=== PATIENT | female | born 1935 | race Caucasian/White ===

== ENCOUNTER → 2025-01-15 | Outpatient (REF) | payer MEDICARE, SELFPAY ==
[2025-01-15 09:37] LABS: Absolute Lymphocyte Count 1.16 X10^3/uL (0.83-4.51); Absolute Neutrophil Count 5.9 X10^3/uL (2.0-7.7); Basophil# 0.04 X10^3/uL; Basophil% 0.5 % (0-1); Eosinophil# 0.33 X10^3/uL; Eosinophils% 4.1 % (0-5); Hemoglobin 9.4 g/dL (12.0-15.0); Lymphocyte # 1.16 X10^3/ul (0.83-4.51); Lymphocyte % 14.3 % (19-41); Mean Corp Hgb Conc 32.4 g/dL (32-36); Mean Corpuscular Hgb 29.5 pg (27.0-32.0); Mean Corpuscular Volume 90.9 fL (81-99); Mean Platelet Vol. 9.4 fl (6.2-12.0); Monocyte# 0.66 X10^3/uL; Monocyte% 8.1 % (0-10); NRBC Flagged by Analyzer 0 % (0-5); Neutrophil # 5.86 X10^3/uL (2.7-7.7); Neutrophil % 71.9 % (47-70); Platelet Count 390 K/mm3 (150-450); RBC Distribution Width SD 53.4 fl (35.1-43.9); Red Blood Count 3.19 M/mm3 (4.2-5.4); White Blood Count 8.1 K/mm3 (4.4-11.0)
[2025-01-15 10:38] LABS: Anion Gap 12 (5-15); BUN 27 mg/dL (4-19); BUN/Creat Ratio 35.3 RATIO (10-20); Calcium,Total 9.1 mg/dL (7.6-11.0); Chloride 101 mmol/L (98-108); Creatinine, Serum 0.76 mg/dL (0.70-1.20); EST Glomerular Filtration Rate 75 (>60); Glucose 108 mg/dL (70-99); Potassium 4.6 mmol/L (3.3-5.1); Sodium Level 139 mmol/L (133-145)
== END ==
LOC: OLS.ACH 05:00
PROVIDERS: Visit Provider Internal Medicine
DX: E11.65 Type 2 diabetes mellitus with hyperglycemia (principal); E11.22 Type 2 diabetes mellitus with diabetic chronic kidney disease; N18.31 Chronic kidney disease, stage 3a
CPT/HCPCS: 36415; 80048; 85025

== ENCOUNTER → 2025-02-04 | Outpatient (REF) | payer MEDICARE, SELFPAY ==
[2025-02-04 10:54] LABS: Erythrocyte Sedimentation Rate 23 mm/hr (0-30)
[2025-02-04 23:39] LABS: CRP < 3.00 mg/L (0.0-3.0)
== END ==
LOC: OLS.ACH 05:00
PROVIDERS: Visit Provider Internal Medicine
DX: M11.20 Other chondrocalcinosis, unspecified site (principal); B95.61 Methicillin susceptible Staphylococcus aureus infection as the cause of diseases classified elsewhere
CPT/HCPCS: 36415; 85652; 86140

== ENCOUNTER → 2025-03-04 | Outpatient (REF) | payer MEDICARE, SELFPAY ==
[2025-03-04 09:42] LABS: Erythrocyte Sedimentation Rate 12 mm/hr (0-30)
[2025-03-04 11:57] LABS: CRP < 3.00 mg/L (0.0-3.0)
== END ==
LOC: OLS.ACH 05:00
PROVIDERS: Visit Provider Internal Medicine
DX: M11.20 Other chondrocalcinosis, unspecified site (principal); B95.61 Methicillin susceptible Staphylococcus aureus infection as the cause of diseases classified elsewhere
CPT/HCPCS: 36415; 85652; 86140

== ENCOUNTER → 2025-03-12 | Outpatient (REF) | payer MEDICARE, SELFPAY ==
[2025-03-12 09:44] LABS: Hemoglobin A1c 7.4 % (<=5.6)
== END ==
LOC: OLS.ACH 04:00
PROVIDERS: Referring Provider Internal Medicine; Visit Provider Internal Medicine
DX: E11.65 Type 2 diabetes mellitus with hyperglycemia (principal)
CPT/HCPCS: 36415; 83036

== ENCOUNTER → 2025-04-01 | Outpatient (REF) | payer MEDICARE, SELFPAY ==
[2025-04-01 08:56] LABS: CRP < 3.00 mg/L (0.0-3.0); Erythrocyte Sedimentation Rate 14 mm/hr (0-30)
== END ==
LOC: OLS.ACH 05:00
PROVIDERS: Visit Provider Internal Medicine
DX: M11.20 Other chondrocalcinosis, unspecified site (principal); B95.61 Methicillin susceptible Staphylococcus aureus infection as the cause of diseases classified elsewhere
CPT/HCPCS: 36415; 85652; 86140

== ENCOUNTER → 2025-04-10 03:00 | Outpatient (REF) | payer MEDICARE, SELFPAY ==
[2025-04-11 08:21] LABS: Mucous, Urine 0 SEEN /hpf (<or=2+)
[2025-04-11 08:28] LABS: Color, Urine Yellow (Yellow); Glucose, Dipstick Normal (Normal); Ketone-Dipstick Negative (Negative); Leukocyte Esterase-Dipstick 100 /ul (Negative); Nitrite-Dipstick Negative (Negative); Occult Blood-Urine Negative /ul (Negative); Protein-Dipstick 100 mg/dl (Negative); Specific Gravity, Urine 1.015 (1.002-1.030); Urine Bilirubin Dipstick Negative (Negative); Urine Clarity Clear (Clear); Urine Urobilinogen Normal (Normal)
[2025-04-11 10:36] LABS: Bacteria 1+ /hpf (None Seen); Red Blood Cells-Urine 0-5 SEEN /hpf (0-5); Squamous Epithelial Cells - UA 0-5 SEEN /hpf (5-10); White Blood Cells 5-10 SEEN /hpf (0-5)
[2025-04-11 10:44] LABS: Hyaline Cast 0-5 SEEN /lpf (0-5)
== END ==
LOC: OLS.ACH 03:00
PROVIDERS: Visit Provider Internal Medicine
DX: N39.0 Urinary tract infection, site not specified (principal)
CPT/HCPCS: 81001; 87077; 87086; 87088; 87186

== ENCOUNTER → 2025-04-26 | Outpatient (REF) | payer MEDICARE, SELFPAY ==
[2025-04-26 08:03] LABS: Mucous, Urine 0 SEEN /hpf (<or=2+); Red Blood Cells-Urine 0 SEEN /hpf (0-5)
[2025-04-26 08:28] LABS: Color, Urine Yellow (Yellow); Glucose, Dipstick Normal (Normal); Ketone-Dipstick Negative (Negative); Leukocyte Esterase-Dipstick 25 /ul (Negative); Nitrite-Dipstick Negative (Negative); Occult Blood-Urine Negative /ul (Negative); Protein-Dipstick 100 mg/dl (Negative); Urine Bilirubin Dipstick Negative (Negative); Urine Clarity Clear (Clear); Urine Urobilinogen Normal (Normal)
[2025-04-26 08:59] LABS: Bacteria 1+ /hpf (None Seen); Squamous Epithelial Cells - UA 5-10 SEEN /hpf (5-10); White Blood Cells 0-5 SEEN /hpf (0-5)
[2025-04-26 09:00] LABS: Fine Granular Cast- Urine 0-5 SEEN /lpf (0-5); Hyaline Cast 5-10 SEEN /lpf (0-5)
== END ==
LOC: OLS.ACH 05:00
PROVIDERS: Visit Provider Internal Medicine
DX: N39.9 Disorder of urinary system, unspecified (principal); R39.9 Unspecified symptoms and signs involving the genitourinary system
CPT/HCPCS: 81001; 87077; 87086; 87088; 87186

== ENCOUNTER → 2025-04-29 | Outpatient (REF) | payer MEDICARE, SELFPAY ==
--- OUTSIDE RECORDS SUMMARY | 2025-04-29 04:52 | XMS RPT_ITS | CCD ---
Author Organization [facility] ion [facility] Care Team Providers Care Day Guard Name Role Phone Migdalia Cramer MD Primary Care Provider Edenilson Townsend Unavailable [facility] Unavailable Katia Farooq RN Unavailable Unavailabl Migdalia Esparza MD Primary Care Provider Edenilson Townsend Unavailable Migdalia Crmaer MD Primary Care Provider Edenilson Townsend Unavailable Lien Hankins RN Unavailable Edenilson Townsend OD Unavailable [phone] Migdalia Cramer MD Primary Care Provider Kris PLANER TAILER.Cinthia JUAN Unavailable Fabrizio PLANER TAILER.Willie JUAN Unavailable MIGDALIA CRAMER Primary Care Unavailable SIMONE KEVIN Referring Unavailable MIGDALIA CRAMER Attending Unavailable MIGDALIA CRAMER Primary Care Unavailable GERTRUDIS BILL Attending Unavailable MIGDALIA CRAMER Primary Care Unavailable GRUPO MENDEZ Referring Unavailable MIGDALIA CRAMER Primary Care Unavailable MARIUSZ ROMO Attending Unavailable MIGDALIA CRAMER Primary Care Unavailable GRUPO MENDEZ Attending Unavailable MIGDALIA CRAMER Referring Unavailable MIGDALIA CRAMER Primary Care Unavailable WILLIE KAUR Referring Unavailable CRAMER, MIGDALIA D Primary Care Unavailable MARIUSZ ROMO Referring Unavailable CRAMER, MIGDALIA D Attending Unavailable CRAMER, MIGDALIA D Primary Care Unavailable AB BENSON Attending Unavailable CRAMER, MIGDALIA D Primary Care Unavailable GRUPO MENDEZ Attending Unavailable CRAMER, MIGDALIA D Primary Care Unavailable SELF Referring Unavailable CRAMER, MIGDALIA D Primary Care Unavailable SIMONE KEVIN Attending Unavailable WILLIE KAUR Referring Unavailable CRAMER, MIGDALIA D Primary Care Unavailable OSCAR, GRUPO Referring Unavailable CRAMER, MIGDALIA D Primary Care Unavailable SIMONE KEVIN Referring Unavailable CRAMER, MIGDALIA D Primary Care Unavailable TYESHA SINGLETON Attending Unavailable CRAMER, MIGDALIA D Primary Care Unavailable CRAMER, MIGDALIA D Primary Care Unavailable SIMONE KEVIN Referring Unavailable OSCAR, GRUPO Referring Unavailable CRAMER, MIGDALIA D Primary Care Unavailable OSCAR, GRUPO Referring Unavailable CRAMER, MIGDALIA D Primary Care Unavailable SIMONE KEVIN Attending Unavailable CRAMER, MIGDALIA D Attending Unavailable CRAMER, MIGDALIA D Primary Care Unavailable SHELBY MENDEZNORA Referring Unavailable CRAMER, MIGDALIA D Primary Care Unavailable SIMONE KEVIN Referring Unavailable CRAMER, MIGDALIA D Primary Care Unavailable Mario Mak MD Attending Provider Unavailable Mario Mak MD Referring Provider Unavailable PROVIDER, UNKNOWN Attending Unavailable PROVIDER, UNKNOWN Primary Care Unavailable SHAUN SUAREZ Admitting Unavailable JOSIE WYNN Consulting Unavailabl e PROVIDER, UNKNOWN Primary Care Unavailable MARTIN NUNES Attending Unavailable LIEN BANG Attending Unavailable PROVIDER, UNKNOWN Primary Care Unavailable LIEN BANG Attending Unavailable PROVIDER, UNKNOWN Primary Care Unavailable GRUPO MNEDEZ Referring Unavailable PROVIDER, UNKNOWN Primary Care Unavailable LIEN BANG Attending Unavailable PROVIDER, UNKNOWN Primary Care Unavailable JINA CASTILLO DANIEL Referring Unavailable PROVIDER, UNKNOWN Primary Care Unavailable CINTHIA REDD Attending Unavailable MURO JONATHAN, DANIEL Referring Unavailable PROVIDER, UNKNOWN Primary Care Unavailable ELMA THOMPSON Attending Unavailable Aubree HODGE, Mario Attending Provider Unavailable Aubree HODGE, Mario Referring Provider Unavailable Deperro ADRIANNA, Mario Attending Unavailable Deperro OLS, Mario Attending Unavailable Deperro OLS, Mario Attending Unavailable Deperro OLS, Mario Attending Unavailable Deperro OLS, Mario Attending Unavailable Deperro OLS, Mario Attending Unavailable Deperro OLS, Mario Referring Unavailable Deperro OLS, Mario Referring Unavailable Deperro OLS, Mario Attending Unavailable Aubree RODAS, Mario Attending Unavailable Aubree RODAS, Mario Referring Unavailable Aubree RODAS, Mario Attending Unavailable Kareeno ADRIANNA, Mario Attending Unavailable Aubree RODAS, Mario Attending Unavailable Medications Current Medications Medication Drug Class(es) Dates Sig (Normalized) Sig (Original) acetaminophen 325 mg oral capsule (9 sources) take 2 tablets by mouth three times daily for pain acetaminophen 325 mg cap Take 325 mg by mouth two times a day. Give 2 tablets by mouth three times a day for pain for 2 weeks Active albuterol 0.833 mg/ml / ipratropium bromide 0.167 mg/ml inhalation solution (4 sources) Anticholinergic, beta2-Adrenergic Agonist take 3 mL by inhalation every four hours as needed ipratropium-albute rol (DUONEB) 0.5 mg-3 mg(2.5 mg base)/3 mL nebu Inhale 3 mL as instructed every 4 hours as needed for wheezing/shortness of breath. Active amLODIPine 5 mg oral tablet (20 sources) Dihydropyridine Calcium Channel Evelyn Start: 04-14-2021 End: 12-25-2024 take 1 tablet by mouth once daily amLODIPine (NORVASC) 5 mg tablet Indications: Essential hypertension TAKE 1 TABLET BY MOUTH ONCE DAILY 90 tablet 3 12/25/2024 Active Comment on above: TAKE 1 TABLET BY [facility] TH ONCE DAILY ascorbic acid 500 mg oral tablet (4 sources) Vitamin C take 1 tablet by mouth twice daily ascorbic acid, vitamin C, (VITAMIN C) 500 mg tablet Take 500 mg by mouth two times a day. Active atorvastatin 40 mg oral tablet (4 sources) HMG-CoA Reductase Inhibitor take 1 tablet by mouth once daily atorvastatin (LIPITOR) 40 mg tablet Take 40 mg by mouth once daily. Active Blood Glucose Control, Normal soln (1 source) Start: 04-20-2023 End: 04-21-2023 Blood Glucose Control, Normal soln Use testing solution to calibrate glucometer as needed 1 Each 0 04/20/2023 04/21/2023 Active Comment on above: Use testing solution to calibrate glucometer as needed Blood-Glucose Meter (1 source) Start: 04-20-2023 End: 04-21-2023 Blood-Glucose Meter Test One time a day. Insulin Dep? No E11.9 DM 2 1 Each 0 04/20/2023 04/21/2023 Active Comment on above: Test One time a day. Insulin Dep? No E11.9 DM 2 cefixime 400 mg oral capsule (2 sources) Cephalosporin Antibacterial Start: 03-29-2022 End: 04-01-2022 take 1 capsule by mouth once daily cefixime (SUPRAX) 400 mg capsule Take 1 capsule by mouth once daily for 3 doses. 3 capsule 0 03/29/2022 04/01/2022 Active Comment on above: Take 1 capsule by [facility] once daily for 3 doses. colchicine 0.6 mg oral tablet (15 sources) Start: 12-12-2024 End: 03-12-2025 take 1 tablet by mouth once daily colchicine 0.6 mg tablet Take 1 tablet by mouth once daily. 12/12/2024 03/12/2025 Active diclofenac sodium 0.01 mg/mg topical gel (20 sources) Nonsteroidal Anti-inflammatory Drug Start: 03-09-2023 apply 2 g topically every six hours as needed diclofenac (VOLTAREN) 1 % topical gel Apply 2 g to affected area four times daily as needed. 50 g 1 03/09/2023 Active Start: 03-29-2022 End: 04-28-2022 apply 2 g topically four times daily diclofenac (VOLTAREN) 1 % topical gel Apply 2 g to affected area four times daily. 240 g 0 03/29/2022 04/28/2022 Active Comment on above: Apply 2 g to affecte d area four times daily. Apply 2 g to affecte d area four times daily as needed. docusate sodium 50 mg / sennosides, skilled nursing 8.6 mg oral tablet (9 sources) take 1 tablet by mouth once daily senna-docusate (SENEXON-S) 8.6-50 mg per tablet Take 1 tablet by mouth once daily. Active ferrous sulfate 325 mg oral tablet (7 sources) Start: 05-08-2022 End: 08-06-2022 take 1 tablet by mouth twice daily ferrous sulfate 325 mg (65 mg iron) tablet Indications: Iron deficiency anemia, unspecified iron deficiency anemia type Take 1 tablet by mouth twice daily. 180 tablet 0 05/08/2022 08/06/2022 Active Start: 03-26-2022 End: 04-25-2022 take 1 tablet by mouth twice daily ferrous sulfate 325 mg (65 mg iron) tablet Take 1 tablet by mouth twice daily. 60 tablet 0 03/26/2022 04/25/2022 Active Comment on above: Take 1 tablet by [facility] th twice daily. GLUCAGON INJECTION (4 sources) GLUCAGON INJECTI ON 1 mg by INJECTION(UNSPECIFIED PARENTERAL ROUTES) route as needed (hypoglycemia). If glucose is less than 70 and non-responsive or NPO. Repeat blood sugar in 15 minutes. Active 3 ml insulin glargine 100 unt/ml pen injector (15 sources) Insulin Analog Start: inject 22 [IU] by subcutaneous injection once daily at bedtime insulin glargine 100 unit/mL (3 mL) Inject 22 Units subcutaneously daily at bedtime. 12/12/2024 Active insulin lispro 100 unt/ml injectable solution (15 sources) Insulin Analog Start: inject 8 [IU] by subcutaneous injection three times daily before mealtime, then inject 8 [IU] by subcutaneous injection three times daily before mealtime insulin lispro (HUMALOG U-100 INSULIN) 100 unit/mL injection Inject 8 Units subcutaneously three times a day before meals. Inject 8 units subcutaneously 3 times daily before meals. Check mealtime blood sugar and also administer correction scale.If Blood Glucose (mg/dL) is: Less than 110 Give 0 units 111-150 Give 0 units 151-200 Give 1 unit 201-250 Give 2 units 251-300 Give 3 units 301-350 Give 4 units 351-400 Give 5 units Greater than 400 Give 5 units and Notify Provider 12/12/2024 Active lidocaine 0.04 mg/mg medicated patch (6 sources) Antiarrhythmic, Amide Local Anesthetic Start: End: apply 1 dose transdermal route once daily lidocaine (SALONPAS) 4 % patch Apply 1 Patch as directed once daily. To affected area 30 Patch 0 03/29/2022 04/28/2022 Active Comment on above: Apply 1 Patch as dir ected once daily. To affected area lisinopril 20 mg oral tablet (15 sources) Angiotensin Converting Enzyme Inhibitor Start: take 1 tablet by mouth once daily lisinopril (ZESTRIL) 20 mg tablet Take 1 tablet by mouth once daily. 12/12/2024 Active magnesium hydroxide 80 mg/ml oral suspension (9 sources) take 5 mL by mouth once daily as needed for constipation magnesium hydroxide (MILK OF MAGNESIA) 400 mg/5 mL suspension Take 5 mL by mouth once daily as needed for constipation (as needed for constipation). Active meloxicam 15 mg oral tablet (20 sources) Nonsteroidal Anti-inflammatory Drug Start: End: take 1 tablet by mouth once daily as needed for pain meloxicam (MOBIC) 15 mg tablet TAKE 1 TABLET BY MOUTH ONCE DAILY NEEDED FOR PAIN. DO NOT COMBINE WITH DICLOFENAC GEL 90 tablet 3 10/12/2024 Active Start: 08-12-2022 End: 12-28-2022 take 1 tablet by mouth once daily as needed for pain meloxicam (MOBIC) 15 mg tablet TAKE 1 TABLET BY MOUTH ONCE DAILY NEEDED FOR PAIN 90 tablet 3 12/28/2022 Active Start: 02-26-2022 End: 05-27-2022 take 1 tablet by mouth once daily as needed for pain meloxicam (MOBIC) 15 mg tablet Indications: DDD (degenerative disc disease), cervical Take 1 tablet by mouth once daily. As needed for pain 90 tablet 3 02/26/2022 05/27/2022 Active Start: 12-24-2020 End: 10-15-2021 take 1 tablet by mouth once daily meloxicam (MOBIC) 15 mg tablet Indications: DDD (degenerative disc disease), cervical TAKE 1 TABLET BY MOUTH ONCE DAILY 90 tablet 3 12/24/2020 10/15/2021 Discontinued (Discontinued by Patient) Comment on above: Take 1 tablet by i[facility] th once daily. As needed for pain TAKE 1 TABLET BY [facility] TH ONCE DAILY NEEDED FOR PAIN Take 1 tablet by iwona th once daily as needed for pain. DO NOT COMBINE WITH DICLOFENAC GEL metFORMIN hydrochloride 850 mg oral tablet (20 sources) Biguanide Start: End: take 1 tablet by mouth twice daily at mealtime metFORMIN (GLUCOPHAGE) 850 mg tablet TAKE 1 TABLET BY MOUTH TWICE DAILY WITH MEALS 180 tablet 3 11/27/2024 Active Start: 03-29-2023 End: 04-13-2023 take 1 tablet by mouth twice daily at mealtime metFORMIN (GLUCOPHAGE) 1,000 mg tablet Take 1 tablet by mouth twice daily with meals for 7 days. 14 tablet 0 04/04/2023 04/13/2023 Discontinued (Dosage adjustment) Start: 03-17-2023 End: 03-29-2023 take 1 tablet by mouth twice daily at mealtime metFORMIN (GLUCOPHAGE) 850 mg tablet Take 1 tablet by mouth twice daily with meals. 180 tablet 3 03/17/2023 03/29/2023 Discontinued (Dosage adjustment) Start: 12-24-2020 End: 03-17-2023 metFORMIN (GLUCOPHAGE) 500 m g tablet Indications: Type 2 diabetes mellitus with stage 3 chronic kidney disease, without long-term current use of insulin (HCC) TAKE 1 TABLET BY MOUTH TWICE DAILY WITH MEALS 180 tablet 3 10/04/2022 03/17/2023 Discontinued (Dosage adjustment) Comment on above: Take 1 tablet by iwona th twice daily with meals. TAKE 1 TABLET BY [facility] TH TWICE DAILY WITH MEALS Take 1 tablet by i[facility]ona th twice daily with meals for 7 days. Take 1 tablet by i[facility]ona th two times a day with meals for 7 days. Take 1 tablet by i[facility]ona th two times a day with meals. pantoprazole 40 mg delayed release oral tablet (15 sources) Proton Pump Inhibitor Start: take 1 tablet by mouth twice daily before mealtime, then take 4 tablets by mouth in the evening pantoprazole DR (PROTONIX) 40 mg tablet Take 1 tablet by mouth two times a day before meals at 6 am and 4 pm. 12/12/2024 Active pravastatin sodium 20 mg oral tablet (20 sources) HMG-CoA Reductase Inhibitor Start: End: take 1 tablet by mouth once daily pravastatin (PRAVACHOL) 20 mg tablet Indications: Hyperlipidemia with target LDL less than 100 Take 1 tablet by mouth once daily. 90 tablet 3 03/01/2024 03/01/2025 Active Start: 12-24-2020 End: 10-23-2023 take 1 tablet by mouth once daily pravastatin (PRAVACHOL) 20 mg tablet Indications: Hyperlipidemia with target LDL less than 100 Take 1 tablet by mouth once daily. 90 tablet 3 10/23/2022 Active Comment on above: Take 1 tablet by i[facility]ona th once daily. predniSONE 5 mg oral tablet (14 sources) Start: 12-12-2024 End: 2024 take 4 tablets by mouth once daily, then take 3 tablets by mouth once daily, then take 2 tablets by mouth once daily, then take 1 tablet by mouth once daily predniSONE (DELTASONE) 5 mg tablet Take 4 tablets by mouth once daily for 4 days, THEN 3 tablets once daily for 5 days, THEN 2 tablets once daily for 5 days, THEN 1 tablet once daily for 5 days. 12/12/2024 2024 Active take 1 tablet by mouth once kane y predniSONE (DELTASONE) 5 mg tablet Take 5 mg by mouth once daily. Active psyllium 3400 mg powder for oral suspension (9 sources) psyllium husk (METAMUCIL) 3.4 gram/5.4 gram powd Take 3.4 g by mouth once daily. One time a day for constipation Active therapeutic multivitamin-minerals (THERA-M PLUS) 9 mg iron-400 mcg tablet (4 sources) therapeutic multivitamin-mineral s (THERA-M PLUS) 9 mg iron-400 mcg tablet Take 1 tablet by mouth once daily. Active traZODone hydrochloride 50 mg oral tablet (20 sources) Serotonin Reuptake Inhibitor Start: End: take 1 tablet by mouth at bedtime as needed traZODone (DESYREL) 50 mg tablet Indications: Insomnia Take 1 tablet by mouth at bedtime as needed for sedation. 90 tablet 3 09/13/2024 Active vitamin b6 50 mg oral tablet (5 sources) Start: take 1 tablet by mouth once daily pyridoxine, vitamin B6, (VITAMIN B6) 50 mg tablet Indications: Normocytic anemia , Vitamin B6 deficiency Take 1 tablet by mouth once daily. 90 tablet 3 01/09/2025 Active Completed/Discontinued Medications Medication Drug Class(es) Dates Sig (Normalized) Sig (Original) benoxinate hydrochloride 4 mg/ml / fluorescein sodium 3 mg/ml ophthalmic solution (1 source) Diagnostic Dye Start: 03-21-2024 End: 03-21-2024 fluorescein-benoxi tiffanie 0.3-0.4 % 1 Drop (FLURESS) ceFAZolin 2000 mg injection (13 sources) Cephalosporin Antibacterial Start: 12-12-2024 End: 01-31-2025 inject 100 mL intravenously every eight hours ceFAZolin (ANCEF) 2 gram/100 mL in dextrose (iso-osmotic) Inject 100 mL intravenously every 8 hours. 12/12/2024 01/31/2025 Discontinued (Course of therapy completed) glipiZIDE er 2.5 mg 24 hr extended release oral tablet (20 sources) Sulfonylurea Start: 04-13-2023 End: 08-10-2024 take 1 tablet by mouth once daily glipiZIDE (GLUCOTROL XL) 2.5 mg 24 hr tablet TAKE 1 TABLET BY MOUTH ONCE DAILY 90 tablet 3 08/10/2024 Suspended Start: 04-21-2021 End: 08-17-2022 take 1 tablet by mouth once daily glipiZIDE (GLUCOTROL XL) 2.5 mg 24 hr tablet Take 1 tablet by mouth once daily. 14 tablet 0 08/17/2022 Active take 1 tablet by i[facility]ona once daily glipiZIDE 2.5 mg tablet Take 2.5 mg by mouth once daily. Active Comment on above: Take 1 tablet by i[facility] once daily. Take 1 tablet by i[facility] once daily. TEMPORARY REFILL WHILE WAITING FOR MAIL ORDER Take 1 tablet by [facility] once daily. (local supply while waiting for mail order) TAKE 1 TABLET BY [facility] EVERY DAY hydroCHLOROthiazide 25 mg / lisinopril 20 mg oral tablet (20 sources) Thiazide Diuretic, Angiotensin Converting Enzyme Inhibitor Start : 04-14 End: 09-13 take 1 tablet by mouth once daily lisinopril-hydroCHLOR Othiazide (ZESTORETIC) 20-25 mg per tablet Indications: Essential hypertension Take 1 tablet by mouth once daily. 90 tablet 3 07/19/2024 Suspended Comment on above: TAKE 1 TABLET BY [facility] ONCE DAILY lansoprazole 30 mg delayed release oral capsule (20 sources) Proton Pump Inhibitor Start : 11-28 End: 07-12 take 1 capsule by mouth once daily lansoprazole (PREVACID) 30 mg capsule Indications: Gastroesophageal reflux disease without esophagitis Take 1 capsule by mouth once daily. 90 capsule 3 02/28/2024 Suspended Comment on above: Take 1 capsule by [facility] once daily. TAKE 1 CAPSULE BY [facility] ONCE DAILY melatonin 3 mg oral capsule (20 sources) Start : 07-20 End: 03-09 melatonin 3 mg cap Indications: Sleep disturbance 1 capsule 3 hours before bedtime. 90 capsule 3 07/20/2019 03/09/2023 Discontinued Comment on above: 1 capsule 3 hours be fore bedtime. phenylephrine hydrochloride 25 mg/ml ophthalmic solution (1 source) alpha-1 Adrenergic Agonist Start : 03-21 End: 03-21 PHENYLephrine 2.5 % 1 Drop (AK-DILATE, REBA-SYNEPHRINE) pioglitazone 45 mg oral tablet (20 sources) Peroxisome Proliferator Receptor alpha Agonist, Peroxisome Proliferator Receptor gamma Agonist, Thiazolidinedione Start : 05-18 End: 04-26 pioglitazone (ACTOS) 45 mg tablet Indications: Type 2 diabetes mellitus with stage 3 chronic kidney disease, without long-term current use of insulin (HCC) Take 1 tablet by mouth once daily. 90 tablet 3 04/26/2024 04/26/2025 Suspended Start: 06-18-2022 pioglitazone ( ACTOS) 45 mg tablet Indications: Type 2 diabetes mellitus with stage 3 chronic kidney disease, without long-term current use of insulin ([facility]) TAKE 1 TABLET BY MOUTH ONCE DAILY 90 tablet 3 06/18/2022 Active Start: 08-19-2020 End: 07-14-2021 pioglitazone (ACTOS) 45 mg t ablet Indications: Type 2 diabetes mellitus with stage 3 chronic kidney disease, without long-term current use of insulin ([facility]) TAKE 1 TABLET BY MOUTH ONCE DAILY 90 tablet 3 07/14/2021 Active Comment on above: TAKE 1 TABLET BY [facility] TH ONCE DAILY polyethylene glycol 3350 48178 mg powder for oral solution (20 sources) Osmotic Laxative Start: 12-26-2019 End: 07-12-2024 polyethylene glycol 3350 (MIRALAX) 17 gram/dose powder Indications: Constipation, unspecified constipation type 1 capful dissolved in 8 oz water once daily as needed for regular stools. Can use daily. 850 g 2 12/26/2019 07/12/2024 Discontinued (Discontinued by Patient) Comment on above: 1 capful dissolved i n 8 oz water once daily as needed for regular stools. Can use daily. proparacaine hydrochloride 5 mg/ml ophthalmic solution (1 source) Local Anesthetic Start: 03-21-2024 End: 03-21-2024 proparacaine 0.5 % 1 Drop (ALCAINE) tropicamide 10 mg/ml ophthalmic solution (1 source) Anticholinergic Start: 03-21-2024 End: 03-21-2024 tropicamide 1 % 1 Drop (MYDRIACYL) Problems Active Problems Problem Classification Problem Date Documented Da te Episodic/Chronic Abdominal pain (16 sources) Left upper quadrant pain; Translations: [Left upper quadrant pain] Onset: 5 12-06-2024 Episodic Anxiety disorders (16 sources) Anxiety; Translations: [Anxiety disorder, unspecified] Onset: 5 12-08-2024 Chronic Bacterial infection; unspecified site (1 source) Methicillin susceptible Staphylococcus aureus infection as the cause of diseases classified elsewhere; Translations: [Methicillin susceptible Staphylococcus aureus infection as the cause of diseases classified elsewhere] Onset: 5 Episodic Cataract (1 source) Artificial lens present; Translations: [Presence of intraocular lens] 03-21-2024 Chronic Chronic kidney disease (20 sources) Chronic kidney disease; Translations: [Chronic kidney disease, unspecified] Onset: 6 Resolved: 5 03-07-2017 Chronic Chronic kidney disease (1 source) Chronic kidney disease; Translations: [Chronic kidney disease, stage 3a] Onset: 5 Chronic ulcer of skin (5 sources) 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; Translations: [Non-pressure chronic ulcer of right ankle with fat layer exposed] 12-27-2024 Chronic Deficiency and other anemia (16 sources) Anemia; Translations: [Anemia, unspecified] Onset: 5 12-06-2024 Episodic Deficiency and other anemia (16 sources) Chronic anemia; Translations: [Anemia, unspecified] Onset: 5 12-08-2024 Episodic Diabetes mellitus with complications (20 sources) Type 2 diabetes mellitus; Translations: [Type 2 diabetes mellitus with diabetic chronic kidney disease] Onset: 0 Resolved: 5 Chronic Diabetes mellitus without complication (20 sources) Diabetes mellitus; Translations: [Diabetes mellitus without mention of complication] Onset: 3 Resolved: 7 05-24-2011 Chronic Diseases of white blood cells (20 sources) Leukocytosis; Translations: [Elevated white blood cell count, unspecified] Onset: 2 Resolved: 2 Chronic Disorders of lipid metabolism (20 sources) Hyperlipidemia; Translations: [Hyperlipidemia, unspecified] Onset: 1 Resolved: 4 01-29-2020 Chronic Esophageal disorders (20 sources) Gastroesophageal reflux disease; Translations: [Gastro-esophageal reflux disease without esophagitis] Onset: 6 06-15-2006 Chronic Essential hypertension (20 sources) Essential hypertension; Translations: [Essential (primary) hypertension] Onset: 7 Resolved: 7 01-29-2020 Chronic Fluid and electrolyte disorders (20 sources) Electrolyte imbalance; Translations: [Other disorders of electrolyte and fluid balance, not elsewhere classified] Onset: 2 Resolved: 2 03-24-2022 Episodic Gout and other crystal arthropathies (18 sources) Pyrophosphate arthritis; 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, multiple sites] Onset: 5 12-07-2024 Chronic Headache; including migraine (17 sources) Headache; Translations: [Headache, unspecified headache type] Onset: 5 08-14-2024 Episodic Hypertension with complications and secondary hypertension (20 sources) Chronic kidney disease stage 3 due to hypertension; Translations: [Hypertensive chronic kidney disease with stage 1 through stage 4 chronic kidney disease, or unspecified chronic kidney disease] Onset: 1 03-17-2021 Chronic Immunizations and screening for infectious disease (16 sources) Anti-nuclear factor positive; Translations: [Other specified abnormal immunological findings in serum] Onset: 5 12-06-2024 Episodic Infective arthritis and osteomyelitis (except that caused by tuberculosis or sexually transmitted disease) (1 source) Osteomyelitis of lower leg; Translations: [Subacute osteomyelitis, right tibia and fibula] 01-08-2025 Chronic Malaise and fatigue (20 sources) Asthenia; Translations: [Weakness] Onset: 4 08-14-2024 Episodic Miscellaneous mental health disorders (20 sources) Primary insomnia; Translations: [Primary insomnia] Onset: 7 05-25-2017 Chronic Neoplasms of unspecified nature or uncertain behavior (16 sources) Thrombocytosis; Translations: [Thrombocytosis] Onset: 5 12-06-2024 Episodic Nutritional deficiencies (16 sources) Vitamin D deficiency; Translations: [Vitamin D deficiency, unspecified] Onset: 5 12-06-2024 Chronic Nutritional deficiencies (1 source) Vitamin B6 deficiency; Translations: [Pyridoxine deficiency] 01-09-2025 Episodic Open wounds of extremities (20 sources) Disorder of ankle; Translations: [Unspecified open wound, right ankle, initial encounter] Onset: 5 12-07-2024 Episodic Osteoarthritis (20 sources) Arthritis of shoulder region joint; Translations: [Primary osteoarthritis, unspecified shoulder] Onset: 0 Resolved: 8 08-06-2014 Chronic Other connective tissue disease (1 source) Pain of bilateral hands; Translations: [Pain in right hand] Episodic Other connective tissue disease (1 source) Disorder of skeletal muscle; Translations: [Other symptoms and signs involving the musculoskeletal system] Episodic Other connective tissue disease (16 sources) Foot pain; Translations: [Pain in left foot] Onset: 5 12-06-2024 Episodic Other connective tissue disease (16 sources) Muscle pain; Translations: [Myalgia, unspecified site] Onset: 5 12-06-2024 Episodic Other connective tissue disease (16 sources) Muscle weakness of limb; Translations: [Other symptoms and signs involving the musculoskeletal system] Onset: 5 12-06-2024 Episodic Other inflammatory condition of skin (16 sources) Erythema; Translations: [Erythematous condition, unspecified] Onset: 5 12-06-2024 Episodic Other injuries and conditions due to external causes (16 sources) Open wound; Translations: [Other injury of unspecified body region, initial encounter] Onset: 5 12-06-2024 Episodic Other injuries and conditions due to external causes (1 source) Other injury of unspecified body region, initial encounter; Translations: [Open wound] Onset: 5 Episodic Other nervous system disorders (1 source) Other chronic pain; Translations: [Chronic pain of right ankle] Onset: 5 Chronic Other non-traumatic joint disorders (20 sources) Rotator cuff arthropathy of left shoulder; Translations: [Other specific arthropathies, not elsewhere classified, left shoulder] Onset: 1 07-14-2021 Chronic Other non-traumatic joint disorders (1 source) Bilateral wrist pain; Translations: [Pain in right wrist] Episodic Other non-traumatic joint disorders (8 sources) Swollen ankle region; Translations: [Effusion, right ankle] 09-17-2024 Episodic Other non-traumatic joint disorders (1 source) Arthralgia of the ankle and/or foot; Translations: [Pain in right ankle and joints of right foot] 09-19-2024 Episodic Other non-traumatic joint disorders (3 sources) Chronic ankle pain; Translations: [Pain in right ankle and joints of right foot] 11-01-2024 Episodic Other non-traumatic joint disorders (16 sources) Acute ankle pain; Translations: [Pain in left ankle and joints of left foot] Onset: 5 12-06-2024 Episodic Other non-traumatic joint disorders (3 sources) Pain in right ankle and joints of right foot; Translations: [Chronic pain of right ankle] Onset: 4 Episodic Other nutritional; endocrine; and metabolic disorders (20 sources) Hypomagnesemia; Translations: [Hypomagnesemia] Onset: 2 Resolved: 2 03-24-2022 Chronic Other nutritional; endocrine; and metabolic disorders (1 source) Weight loss; Translations: [Abnormal weight loss] 07-12-2024 Episodic Phlebitis; thrombophlebitis and thromboembolism (16 sources) Thrombophlebitis of superficial vein of left upper limb; Translations: [Phlebitis and thrombophlebitis of other sites] Onset: 5 12-06-2024 Episodic Rehabilitation care; fitting of prostheses; and adjustment of devices (16 sources) Patient encounter status; Translations: [Encounter for fitting and adjustment of other specified devices] Onset: 5 12-07-2024 Chronic Residual codes; unclassified (2 sources) Insomnia; Translations: [Insomnia, unspecified] 08-14-2024 Episodic Residual codes; unclassified (16 sources) Generalized acute body pains; Translations: [Pain, unspecified] Onset: 5 12-06-2024 Episodic Screening and history of mental health and substance abuse codes (3 sources) Patient encounter status; Translations: [Encounter for screening for depression] 09-13-2024 Episodic Septicemia (except in labor) (20 sources) Sepsis; Translations: [Sepsis, unspecified organism] Onset: 2 Resolved: 5 03-24-2022 Episodic Skin and subcutaneous tissue infections (20 sources) Cellulitis of right ankle; Translations: [Cellulitis of right lower limb] Onset: 5 11-22-2024 Episodic Spondylosis; intervertebral disc disorders; other back problems (20 sources) Degeneration of cervical intervertebral disc; Translations: [Other cervical disc degeneration, unspecified cervical region] Onset: 0 Resolved: 3 Chronic Spondylosis; intervertebral disc disorders; other back problems (20 sources) Spinal stenosis of lumbar region; Translations: [Spinal stenosis, lumbar region without neurogenic claudication] Onset: 7 Resolved: 8 08-28-2015 Episodic Superficial injury; contusion (1 source) Abrasion, right ankle, initial encounter; Translations: [Abrasion or friction burn of hip, thigh, leg, and ankle, without mention of infection] 09-13-2024 Episodic Thyroid disorders (16 sources) Thyroid nodule; Translations: [Nontoxic single thyroid nodule] Onset: 5 12-08-2024 Chronic Unclassified (1 source) Wound Check Onset: 5 Urinary tract infections (20 sources) Acute cystitis; Translations: [Acute cystitis without hematuria] Onset: 2 Resolved: 2 03-24-2022 Episodic Past or Other Problems Problem Classification Problem Date Documented Da te Episodic/Chronic Acute and unspecified renal failure (20 sources) Acute renal failure syndrome; Translations: [Acute kidney failure, unspecified] Onset: 08-24-2015 Resolved: 08-29-2015 11-09-2021 Episodic Conditions associated with dizziness or vertigo (20 sources) Vertigo of central origin; Translations: [Vertigo of central origin] Onset: 01-08-2010 Resolved: 09-15-2011 09-15-2011 Episodic Deficiency and other anemia (20 sources) Normocytic anemia; Translations: [Anemia, unspecified] Onset: 03-24-2022 03-24-2022 Episodic Deficiency and other anemia (20 sources) Iron deficiency anemia; Translations: [Iron deficiency anemia, unspecified] Onset: 03-27-2022 03-27-2022 Episodic Deficiency and other anemia (1 source) Anemia, unspecified; Translations: [Normocytic anemia] Onset: 03-26-2022 Episodic Fracture of lower limb (3 sources) Closed fracture of calcaneus; Translations: [Unspecified fracture of right calcaneus, initial encounter for closed fracture] Onset: 09-20-2024 09-18-2024 Episodic Genitourinary symptoms and ill-defined conditions (20 sources) Urge incontinence of urine; Translations: [Urge incontinence] Onset: 10-12-2007 Resolved: 12-01-2016 12-01-2016 Chronic Genitourinary symptoms and ill-defined conditions (20 sources) Urgent desire to urinate; Translations: [Urgency of urination] Onset: 10-12-2007 Resolved: 12-01-2016 09-15-2011 Episodic Menopausal disorders (20 sources) Atrophic vaginitis; Translations: [Postmenopausal atrophic vaginitis] Onset: 10-12-2007 Resolved: 05-11-2016 05-11-2016 Chronic Other connective tissue disease (20 sources) Left rotator cuff syndrome; Translations: [Unspecified rotator cuff tear or rupture of left shoulder, not specified as traumatic] Onset: 01-29-2020 01-29-2020 Episodic Other connective tissue disease (20 sources) Plantar fasciitis; Translations: [Plantar fascial fibromatosis] Onset: 05-25-2017 Resolved: 12-07-2017 12-07-2017 Episodic Other connective tissue disease (20 sources) Pain in right arm; Translations: [Pain in right arm] Onset: 03-27-2022 Resolved: 03-29-2022 03-29-2022 Episodic Other connective tissue disease (20 sources) Pain in right lower limb; Translations: [Pain in right leg] Onset: 03-27-2022 Resolved: 03-29-2022 03-29-2022 Episodic Other diseases of bladder and urethra (20 sources) Functional disorder of bladder; Translations: [Other neuromuscular dysfunction of bladder] Onset: 10-12-2007 Resolved: 09-15-2011 09-15-2011 Chronic Other diseases of bladder and urethra (20 sources) Overactive bladder; Translations: [Other neuromuscular dysfunction of bladder] Onset: 04-18-2008 Resolved: 09-15-2011 09-15-2011 Chronic Other diseases of kidney and ureters (20 sources) Abnormal renal function; Translations: [Disorder of kidney and ureter, unspecified] Resolved: 03-07-2017 03-07-2017 Episodic Other gastrointestinal disorders (20 sources) Constipation; Translations: [Constipation, unspecified] Onset: 08-28-2015 Resolved: 05-11-2016 05-11-2016 Episodic Other nervous system disorders (20 sources) Unable to walk; Translations: [Difficulty in walking, not elsewhere classified] Onset: 08-27-2015 Resolved: 05-11-2016 05-11-2016 Chronic Other nervous system disorders (20 sources) Abnormal gait; Translations: [Unspecified abnormalities of gait and mobility] Onset: 05-20-2011 Resolved: 05-11-2016 05-11-2016 Episodic Other non-traumatic joint disorders (20 sources) Arthralgia of the pelvic region and thigh; Translations: [Pain in unspecified hip] Onset: 10-31-2010 Resolved: 09-15-2011 09-15-2011 Episodic Other non-traumatic joint disorders (20 sources) Shoulder joint pain; Translations: [Pain in unspecified shoulder] Onset: 07-17-2013 Resolved: 09-23-2014 09-23-2014 Episodic Other non-traumatic joint disorders (20 sources) Joint pain; Translations: [Pain in unspecified joint] Onset: 03-07-2023 Resolved: 03-09-2023 03-09-2023 Episodic Other non-traumatic joint disorders (2 sources) Effusion, right ankle; Translations: [Right ankle swelling] Onset: 09-18-2024 Episodic Other screening for suspected conditions (not mental disorders or infectious disease) (20 sources) Serum creatinine raised; Translations: [Other specified abnormal findings of blood chemistry] Onset: 03-24-2022 Resolved: 03-26-2022 03-24-2022 Episodic Residual codes; unclassified (20 sources) Unable to perform personal care activity; Translations: [Other specified health status] Onset: 03-27-2022 Resolved: 03-29-2022 03-29-2022 Episodic Residual codes; unclassified (17 sources) Pain; Translations: [Pain, unspecified] Onset: 12-03-2024 Resolved: 12-06-2024 07-14-2021 Episodic Residual codes; unclassified (16 sources) Altered mental status; Translations: [Altered mental status, unspecified] Onset: 12-03-2024 Resolved: 12-06-2024 12-06-2024 Episodic Sprains and strains (20 sources) Traumatic rupture of rotator cuff; Translations: [Strain of muscle(s) and tendon(s) of the rotator cuff of right shoulder, sequela] Onset: 08-06-2014 Resolved: 03-07-2017 Episodic Varicose veins of lower extremity (20 sources) Varicose veins of lower extremity; Translations: [Varicose veins of bilateral lower extremities with other complications] Onset: 09-27-2011 09-27-2011 Episodic Results Test Name Value Interpretation Reference Range Facility Urinalysis, Completeon 04-26 CAST,FINE GRAN 0-5 SEEN Normal 0-5 [facility] Comment on above: Order Comment: 107.1 Performed By: #### L 503.6030, L503.0105, L506.0250, L500.4050, L100.0100, L101.9900 #### [facility] [address] [place], [address] CAST,HYALINE 5-10 SEEN Normal 0-5 [facility] Comment on above: Order Comment: 107.1 Performed By: #### L 503.6030, L503.0105, L506.0250, L500.4050, L100.0100, L101.9900 #### [facility] [address] [place], [address] BACTERIA 1+ /hpf Normal None Seen [facility] Comment on above: Order Comment: 107.1 Performed By: #### L 503.6030, L503.0105, L506.0250, L500.4050, L100.0100, L101.9900 #### [facility] [address] [place], [address] EPI,SQUAMOUS 5-10 SEEN Normal 5-10 [facility] Comment on above: Order Comment: 107.1 Performed By: #### L 503.6030, L503.0105, L506.0250, L500.4050, L100.0100, L101.9900 #### [facility] [address] [place], [address] WBC 0-5 SEEN Normal 0-5 [facility] Comment on above: Order Comment: 107.1 Performed By: #### L [id number], L503.0105, L506.0250, L500.4050, L100.0100, L101.9900 #### [facility] [address] [place], [address] Mucus Ql (Urine sed) 0 SEEN Normal [facility] Comment on above: Order Comment: 107.1 Performed By: #### L 503.6030, L503.0105, L506.0250, L500.4050, L100.0100, L101.9900 #### [facility] [address] [place], [address] RBC 0 SEEN Normal 0-5 [facility] Comment on above: Order Comment: 107.1 Performed By: #### L 503.6030, L503.0105, L506.0250, L500.4050, L100.0100, L101.9900 #### [facility] [address] [place], [address] Urine Cultureon 04-12-2025 URC 107-1 #2 Probable Proteus species. Below infection level. Escherichia coli Riley Count 50,000-80,000 Gram negative anabell Gram negative anabell Escherichia coli: REACTION Ampicillin Islt HEMANT >=32 R Ampicillin+Sulbac Islt HEMANT 16 Cefepime Islt HEMANT <=0.12 S cefTRIAXone Islt HEMANT 32 R Ciprofloxacin Islt HEMANT 0.5 I B-Lactamase Extended Susc Islt NEG Gentamicin Islt HEMANT <=1 S levoFLOXacin Islt HEMANT 1 I Meropenem Islt HEMANT <=0.25 S Nitrofurantoin Islt HEMANT <=16 S Pip+Tazo Islt HEMANT 8 S TMP SMX Islt HEMANT <=20 S Normal [facility] Comment on above: Performed By: #### L 503.6030, L503.0105, L506.0250, L500.4050, L100.0100, L101.9900 #### [facility] [address] [place], [address] Urinalysis, Completeon 04-11 CAST,HYALINE 0-5 SEEN Normal 0-5 [facility] Comment on above: Order Comment: 107.1 Performed By: #### L 503.6030, L503.0105, L506.0250, L500.4050, L100.0100, L101.9900 #### [facility] [address] [place], [address] BACTERIA 1+ /hpf Normal None Seen [facility] Comment on above: Order Comment: 107.1 Performed By: #### L 503.6030, L503.0105, L506.0250, L500.4050, L100.0100, L101.9900 #### [facility] [address] [place], [address] EPI,SQUAMOUS 0-5 SEEN Normal 5-10 [facility] Comment on above: Order Comment: 107.1 Performed By: #### L 503.6030, L503.0105, L506.0250, L500.4050, L100.0100, L101.9900 #### [facility] [address] [place], [address] RBC 0-5 SEEN Normal 0-5 [facility] Comment on above: Order Comment: 107.1 Performed By: #### L 503.6030, L503.0105, L506.0250, L500.4050, L100.0100, L101.9900 #### [facility] [address] [place], [address] WBC 5-10 SEEN Normal 0-5 [facility] Comment on above: Order Comment: 107.1 Performed By: #### L 503.6030, L503.0105, L506.0250, L500.4050, L100.0100, L101.9900 #### [facility] [address] [place], [place], [address] (116) Mucus Ql (Urine sed) 0 SEEN Normal [facility] Comment on above: Order Comment: 107.1 Performed By: #### L 503.6030, L503.0105, L506.0250, L500.4050, L100.0100, L101.9900 #### [facility] [address] [place], [place], [id number] (675) Bilirubin Test strip Ql (U)O rdered By: Mario Mak on 04-10-2025 Bilirubin Ql (U) Negative Negative [facility] Hyaline casts LM.LPF (Urine sed) [#/Area]Ordered By: Mario Mak on 04-10-2025 Hyaline casts (Urine sed) [#/Area] 0 /[LPF] 0-5 [facility] Ketones Test strip Ql (U)Ord ered By: Mario Mak on 04-10-2025 Ketones Ql (U) Negative Negative [facility] Microscopic analysis of urin e for red blood cells (RBC)Ordered By: Mario Mak on 04-10-2025 Microscopic analysis of urine for red blood cells (RBC) 0-5 SEEN /hpf 0-5 [facility] Mucus LM Ql (Urine sed)Order ed By: Mario Mak on 04-10-2025 Mucus Ql (Urine sed) 0 SEEN /hpf [facility] Nitrite Test strip Ql (U)Ord ered By: Mario Mak on 04-10-2025 Nitrite Ql (U) Negative Negative [facility] Protein Test strip Ql (U)Ord ered By: Mario Mak on 04-10-2025 Protein Ql (U) 100 mg/dl High Negative [facility] Squamous epithelial cells de tection in urine sediment by light microscopyOrdered By: Mario Mak on 04-10-2025 Epithelial cells.squamous LM Ql (Urine sed) 0-5 SEEN /hpf 5-10 [facility] Urine clarityOrdered By: Shwetha Mak on 04-10-2025 Clarity (U) Clear Clear [facility] Urine color determinationOrd ered By: Mario Mak on 04-10-2025 Color (U) Yellow Yellow [facility] Urine cultureOrdered By: Shwetha Mak on 04-10-2025 Bacteria identified Cx Nom (U) Escherichia coli Abnormal [facility] Bacteria identified Cx Nom (U) Negative Abnormal [facility] Urine glucose detectionOrder ed By: Mario Mak on 04-10-2025 Glucose Ql (U) Normal mg/dl Normal [facility] Urine leukocyte esterase det ection by dipstickOrdered By: Mario Mak on 04-10-2025 Leukocyte esterase Test strip Ql (U) 100 /ul High Negative [facility] Urine pHOrdered By: Mario reece on 04-10-2025 pH (U) 6.0 [pH] 5.0 - 8.0 [facility] Urine sediment bacteria coun t by microscopy (number/high power field)Ordered By: Mario Mak on 04-10-2025 Bacteria LM.HPF (Urine sed) [#/Area] 1 /[HPF] None Seen [facility] Urine specific gravity measu rementOrdered By: Mario Mak on 04-10-2025 Specific gravity (U) [Rel density] 1.015 1.002-1.030 [facility] Urine urobilinogen measureme ntOrdered By: Mario Mak on 04-10-2025 Urobilinogen Ql (U) Normal mg/dl Normal [facility] White blood cell countOrdere d By: Mario Mak on 04-10-2025 White blood cell count 5-10 SEEN /hpf 0-5 [facility] CRPon 04-01-2025 C-REACTIVE PROT < 3.00 Normal 0.0-3.0 [facility] Comment on above: Order Comment: 107-1 Performed By: #### L 501.6710, L101.9900 #### [facility] [address] [place], [place] [address]sh[place], [address] Erythrocyte Sed Rateon 04-01 SED RATE 14 mm/hr Normal 0-30 [facility] Comment on above: Order Comment: 107.1 Performed By: #### L 503.6030, L503.0105, L506.0250, L500.4050, L100.0100, L101.9900 #### [facility] [address] [place], [address] Erythrocyte sedimentation ra teOrdered By: Mario Mak on 04-01-2025 ESR (Bld) [Velocity] 14 mm/h 0-30 [facility] Serum or plasma C reactive p rotein measurement (mass/volume)Ordered By: Mario Mak on 04-01-2025 CRP [Mass/Vol] mg/L 0.0-3.0 [facility] Hemoglobin A1c percentageOrd ered By: Mario Mak on 03-12-2025 HbA1c (Bld) [Mass fraction] 7.4 % High <=5.6 [facility] Comment on above: Normal < 5.7 % Predi abetic 5.7 - 6.4 % Diabetic >or= 6.5 % Please note range changes. Order Comment: 107.1 Result Comment: Norm al < 5.7 % Prediabetic 5.7 - 6.4 % Diabetic >or= 6.5 % Please note range changes. Performed By: #### L 503.6030, L503.0105, L506.0250, L500.4050, L100.0100, L101.9900 #### [facility] [address] [place], [place], [id number] CRPon 03-04-2025 C-REACTIVE PROT < 3.00 Normal 0.0-3.0 [facility] Comment on above: Order Comment: 107.1 Performed By: #### L 503.6030, L503.0105, L506.0250, L500.4050, L100.0100, L101.9900 #### [facility] [address] [place], [place], [id number] Erythrocyte Sed Rateon 03-04 SED RATE 12 mm/hr Normal 0-30 [facility] Comment on above: Order Comment: 107.1 Performed By: #### L 503.6030, L503.0105, L506.0250, L500.4050, L100.0100, L101.9900 #### [facility] [address] [place], [address] Erythrocyte sedimentation ra teOrdered By: Mario Mak on 03-04-2025 ESR (Bld) [Velocity] 12 mm/h 0-30 [facility] Serum or plasma C reactive p rotein measurement (mass/volume)Ordered By: Mario Mak on 03-04-2025 CRP [Mass/Vol] mg/L 0.0-3.0 [facility] CNOVon 02-13-2025 CNOV [facility] CNPNon 02-11-2025 JACINTA Telephone (MARJORIE) YUSUF MEDINA ([id number]) 1935 [facility] Date Time Provider Department 02/11/25 TYESHA SINGLETON During your visit today, we recorded the following information about you: Lidia Carbajal LPN 02/11/2025 1:00 PM Signed Received results of labs done on 02/04/2025 from [facility] (abnormal results in bold): sed rate 23 0-30 Report sent for scanning. Allergies As of Date: 02/11/2025 (No Known Allergies) Date Reviewed: 01/16/2025 Reviewed by: Nanette Welch, LIT - Fully Assessed Reason for Visit: Results [95] Cmt: Lab results Prescriptions as of 02/11/2025 - atorvastatin (LIPITOR) 40 mg tablet Take 40 mg by mouth once daily. - glipiZIDE 2.5 mg tablet Take 2.5 mg by mouth once daily. - therapeutic multivitamin-minerals (THERA-M PLUS) 9 mg iron-400 mcg tablet Take 1 tablet by mouth once daily. - ascorbic acid, vitamin C, (VITAMIN C) 500 mg tablet Take 500 mg by mouth two times a day. - GLUCAGON INJECTION 1 mg by INJECTION(UNSPECIFIED PARENTERAL ROUTES) route as needed (hypoglycemia). If glucose is less than 70 and non-responsive or NPO. Repeat blood sugar in 15 minutes. - ipratropium-albuterol (DUONEB) 0.5 mg-3 mg(2.5 mg base)/3 mL nebu Inhale 3 mL as instructed every 4 hours as needed for wheezing/shortness of breath. - pyridoxine, vitamin B6, (VITAMIN B6) 50 mg tablet Take 1 tablet by mouth once daily. - predniSONE (DELTASONE) 5 mg tablet Take 5 mg by mouth once daily. - psyllium husk (METAMUCIL) 3.4 gram/5.4 gram powd Take 3.4 g by mouth once daily. One time a day for constipation - acetaminophen 325 mg cap Take 325 mg by mouth two times a day. Give 2 tablets by mouth three times a day for pain for 2 weeks - magnesium hydroxide (MILK OF MAGNESIA) 400 mg/5 mL suspension Take 5 mL by mouth once daily as needed for constipation (as needed for constipation). - senna-docusate (SENEXON-S) 8.6-50 mg per tablet Take 1 tablet by mouth once daily. - amLODIPine (NORVASC) 5 mg tablet TAKE 1 TABLET BY MOUTH ONCE DAILY - colchicine 0.6 mg tablet Take 1 tablet by mouth once daily. - insulin glargine 100 unit/mL (3 mL) Inject 22 Units subcutaneously daily at bedtime. - insulin lispro (HUMALOG U-100 INSULIN) 100 unit/mL injection Inject 8 Units subcutaneously three times a day before meals. Inject 8 units subcutaneously 3 times daily before meals. Check mealtime blood sugar and also administer correction scale.If Blood Glucose (mg/dL) is: Less than 110 Give 0 units 111-150 Give 0 units 151-200 Give 1 unit 201-250 Give 2 units 251-300 Give 3 units 301-350 Give 4 units 351-400 Give 5 units Greater than 400 Give 5 units and Notify Provider - pantoprazole DR (PROTONIX) 40 mg tablet Take 1 tablet by mouth two times a day before meals at 6 am and 4 pm. - lisinopril (ZESTRIL) 20 mg tablet Take 1 tablet by mouth once daily. - metFORMIN (GLUCOPHAGE) 850 mg tablet TAKE 1 TABLET BY MOUTH TWICE DAILY WITH MEALS - meloxicam (MOBIC) 15 mg tablet TAKE 1 TABLET BY MOUTH ONCE DAILY NEEDED FOR PAIN. DO NOT COMBINE WITH DICLOFENAC GEL - traZODone (DESYREL) 50 mg tablet Take 1 tablet by mouth at bedtime as needed for sedation. - pravastatin (PRAVACHOL) 20 mg tablet Take 1 tablet by mouth once daily. - diclofenac (VOLTAREN) 1 % topical gel Apply 2 g to affected area four times daily as needed. Meds Comments as of 03/30/2022: 03/30/22 The medications are managed by this patient by: CAREGIVER José Miguel Swanson [facility] Problem List As Of Date 02/11/2025 Noted Resolved Osteoarth NOS-other site [M19.90] 09/15/2011 BENIGN HYPERTENSION [I10] 12/01/2016 Diabetes mellitus (HCC) [E11.9] 04/10/2003 Esophageal reflux [K21.9] 06/15/2006 Lumbago [M54.50] 05/31/2007 09/15/2011 Urgency of urination [R39.15] 10/12/2007 09/15/2011 Urge incontinence [N39.41] 10/12/2007 12/01/2016 Other functional disorder of bladder [N31.8] 10/12/2007 09/15/2011 Retention of urine, unspecified [R33.9] 10/12/2007 12/01/2016 Postmenopausal atrophic vaginitis [N95.2] 10/12/2007 05/11/2016 Urinary frequency [R35.0] 01/11/2008 09/15/2011 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] 04/18/2008 09/15/2011 Vertigo of central origin [H81.4] 01/08/2010 09/15/2011 Peripheral vertigo, unspecified [H81.399] 01/08/2010 09/15/2011 Diabetes Mellitus Type II, Uncontrolled; 1999 [*02/22/2010 12/01/2016 Degenerative arthritis of hip [M16.9] 10/31/2010 09/23/2014 Pain in joint, pelvic region and thigh [M25.559]10/31/2010 09/15/2011 Thoracic or lumbosacral neuritis or radiculitis*10/31/2010 09/15/2011 Lumbosacral spondylosis without myelopathy [M47*10/31/2010 09/15/2011 Degeneration of lumbar or lumbosacral intervert*10/31/2010 Osteoarth NOS-pelvis [M16.10] 11/16/2010 09/15/2011 Hyperlipidemia [E78.5] 02/19/2011 02/12/2014 Gait disturbance [R26.9] 05/20/2011 05/11/2016 Hip arthritis [M16.10] (more content not included)... Normal [facility] CRPon 02-04-2025 C-REACTIVE PROT < 3.00 Normal 0.0-3.0 [facility] Comment on above: Order Comment: 107.1 Performed By: #### L 503.6030, L503.0105, L506.0250, L500.4050, L100.0100, L101.9900 #### [facility] [address] [place], [address] CRP [Mass/Vol]Ordered By: Moreno on 02-04-2025 C-Reactive Protein Extended Range < 3.00 mg/L 0.0-3.0 [facility] Erythrocyte Sed Rateon 02-04 SED RATE 23 mm/hr Normal 0-30 [facility] Comment on above: Order Comment: 107.1 Performed By: #### L 503.6030, L503.0105, L506.0250, L500.4050, L100.0100, L101.9900 #### [facility] [address] [place], [place], [address] Erythrocyte sedimentation ra teOrdered By: Mario Mak on 02-04-2025 ESR (Bld) [Velocity] 23 mm/h 0-30 [facility] Serum or plasma C reactive p rotein measurement (mass/volume)Ordered By: Mario Mak on 02-04-2025 CRP [Mass/Vol] mg/L 0.0-3.0 [facility] CNOVon 01-16-2025 CNOV [facility] Absolute lymphocyte countOrd ered By: Mario Mak on 01-15-2025 Lymphocytes Auto (Unsp spec) [#/Vol] 1.16 10*3/uL 0.83-4.51 [facility] Absolute neutrophil countOrd ered By: Mario Mak on 01-15-2025 Neutrophils (Bld) [#/Vol] 5.9 10*3/uL 2.0-7.7 [facility] Anion gap in Serum or Plasma Ordered By: Mario Mak on 01-15-2025 Anion gap [Moles/Vol] 12 mmol/L 5-15 [facility] Automated lymphocyte count a s percentage of total leukocytesOrdered By: Mario Mak on 01-15-2025 Lymphocytes/100 WBC Auto (Unsp spec) 14.3 % Low 19-41 [facility] BUN/creatinine ratioOrdered By: Mario Mak on 01-15-2025 Urea nitrogen/Creatinine [Mass ratio] 35.3 mg/mg High 10-20 [facility] Basic Metabolic Profile (BMP )on 01-15-2025 BUN/CRE 35.3 RATIO High 10-20 [facility] Comment on above: Order Comment: 107.1 Performed By: #### L 503.6030, L503.0105, L506.0250, L500.4050, L100.0100, L101.9900 #### [facility] [address] [place], [address] Calcium [Mass/Vol] 9.1 mg/dL Normal 7.6-11.0 [facility] Comment on above: Order Comment: 107.1 Performed By: #### L 503.6030, L503.0105, L506.0250, L500.4050, L100.0100, L101.9900 #### [facility] [address] [place], [address] Chloride [Moles/Vol] 101 mmol/L Normal 98-108 [facility] Comment on above: Order Comment: 107.1 Performed By: #### L 503.6030, L503.0105, L506.0250, L500.4050, L100.0100, L101.9900 #### [facility] [address] [place], [address] CO2 [Moles/Vol] 26.0 mmol/L Normal 21.0-32.0 [facility] Comment on above: Order Comment: 107.1 Performed By: #### L 503.6030, L503.0105, L506.0250, L500.4050, L100.0100, L101.9900 #### [facility] [address] [place], [address] Creatinine [Mass/Vol] 0.76 mg/dL Normal 0.70-1.20 [facility] Comment on above: Order Comment: 107.1 Performed By: #### L 503.6030, L503.0105, L506.0250, L500.4050, L100.0100, L101.9900 #### [facility] [address] [place], [address] GAP 12 Normal 5-15 [facility] Comment on above: Order Comment: 107.1 Performed By: #### L 503.6030, L503.0105, L506.0250, L500.4050, L100.0100, L101.9900 #### [facility] [address] [place], [address] GFR/1.73 sq M.predicted among non-blacks MDRD (S/P/Bld) [Vol rate/Area] 75 mL/min/{1.73_m2} Normal >60 [facility] Comment on above: Order Comment: 107.1 Result Comment: mL/m in/1.73m2 CKD-EPI Creatinine Equation (2020) Performed By: #### L 503.6030, L503.0105, L506.0250, L500.4050, L100.0100, L101.9900 #### [facility] [address] [place], [address] Glucose [Mass/Vol] 108 mg/dL High 70-99 [facility] Comment on above: Order Comment: 107.1 Performed By: #### L 503.6030, L503.0105, L506.0250, L500.4050, L100.0100, L101.9900 #### [facility] [address] [place], [address] Potassium [Moles/Vol] 4.6 mmol/L Normal 3.3-5.1 [facility] Comment on above: Order Comment: 107.1 Performed By: #### L 503.6030, L503.0105, L506.0250, L500.4050, L100.0100, L101.9900 #### [facility] [address] [place], [address] Sodium [Moles/Vol] 139 mmol/L Normal 133-145 [facility] Comment on above: Order Comment: 107.1 Performed By: #### L 503.6030, L503.0105, L506.0250, L500.4050, L100.0100, L101.9900 #### [facility] [address] [place], [address] Urea nitrogen [Mass/Vol] 27 mg/dL High 4-19 [facility] Comment on above: Order Comment: 107.1 Performed By: #### L 503.6030, L503.0105, L506.0250, L500.4050, L100.0100, L101.9900 #### [facility] [address] [place], [address] Basophil percentageOrdered B y: Mario Mak on 03-04-2025 Basophils/100 WBC (Bld) 0.5 % 0-1 [facility] CBC W/Diff, Automatedon 03-0 4-2024 Absolute Lymph 1.16 X10 3/uL Normal 0.83-4.51 [facility] Comment on above: Order Comment: 107.1 Performed By: #### L 503.6030, L503.0105, L506.0250, L500.4050, L100.0100, L101.9900 #### [facility] [address] [place], [address] Absolute Neut 5.9 X10 3/uL Normal 2.0-7.7 [facility] Comment on above: Order Comment: 107.1 Performed By: #### L 503.6030, L503.0105, L506.0250, L500.4050, L100.0100, L101.9900 #### [facility] [address] [place], [address] Basophils/100 WBC (Bld) 0.5 % Normal 0-1 [facility] Comment on above: Order Comment: 107.1 Performed By: #### L 503.6030, L503.0105, L506.0250, L500.4050, L100.0100, L101.9900 #### [facility] [address] [place], [address] Eosinophils/100 WBC (Bld) 4.1 % Normal 0-5 [facility] Comment on above: Order Comment: 107.1 Performed By: #### L 503.6030, L503.0105, L506.0250, L500.4050, L100.0100, L101.9900 #### [facility] [address] [place], [address] Erythrocyte distribution width (RBC) [Ratio] 16.0 % High 11.6-14.6 [facility] Comment on above: Order Comment: 107.1 Performed By: #### L 503.6030, L503.0105, L506.0250, L500.4050, L100.0100, L101.9900 #### [facility] [address] [place], [address] Hematocrit (Bld) [Volume fraction] 29.0 % Low 37-47 [facility] Comment on above: Order Comment: 107.1 Performed By: #### L 503.6030, L503.0105, L506.0250, L500.4050, L100.0100, L101.9900 #### [facility] [address] [place], [address] Hemoglobin (Bld) [Mass/Vol] 9.4 g/dL Low 12.0-15.0 [facility] Comment on above: Order Comment: 107.1 Performed By: #### L 503.6030, L503.0105, L506.0250, L500.4050, L100.0100, L101.9900 #### [facility] [address] [place], [address] IG% 1.100 High 0.0-0.9 [facility] Comment on above: Order Comment: 107.1 Result Comment: IG% - Immature Granulocytes (promyelocytes, myelocytes and metamyelocytes) > 1% indicates that a LEFT SHIFT is Present. Performed By: #### L 503.6030, L503.0105, L506.0250, L500.4050, L100.0100, L101.9900 #### [facility] [address] [place], [address] Lymphocytes/100 WBC (Bld) 14.3 % Low 19-41 [facility] Comment on above: Order Comment: 107.1 Performed By: #### L 503.6030, L503.0105, L506.0250, L500.4050, L100.0100, L101.9900 #### [facility] [address] [place], [address] MCH (RBC) [Entitic mass] 29.5 pg Normal 27.0-32.0 [facility] Comment on above: Order Comment: 107.1 Performed By: #### L 503.6030, L503.0105, L506.0250, L500.4050, L100.0100, L101.9900 #### [facility] [address] [place], [address] MCHC (RBC) [Mass/Vol] 32.4 g/dL Normal 32-36 [facility] Comment on above: Order Comment: 107.1 Performed By: #### L 503.6030, L503.0105, L506.0250, L500.4050, L100.0100, L101.9900 #### [facility] [address] [place], [address] MCV (RBC) [Entitic vol] 90.9 fL Normal 81-99 [facility] Comment on above: Order Comment: 107.1 Performed By: #### L 503.6030, L503.0105, L506.0250, L500.4050, L100.0100, L101.9900 #### [facility] [address] [place], [address] Monocytes/100 WBC (Bld) 8.1 % Normal 0-10 [facility] Comment on above: Order Comment: 107.1 Performed By: #### L 503.6030, L503.0105, L506.0250, L500.4050, L100.0100, L101.9900 #### [facility] [address] [place], [address] Neutrophils/100 WBC (Bld) 71.9 % High 47-70 [facility] Comment on above: Order Comment: 107.1 Performed By: #### L 503.6030, L503.0105, L506.0250, L500.4050, L100.0100, L101.9900 #### [facility] [address] [place], [address] Nucleated RBC (Bld) [#/Vol] 0 10*3/uL Normal 0-5 [facility] Comment on above: Order Comment: 107.1 Performed By: #### L 503.6030, L503.0105, L506.0250, L500.4050, L100.0100, L101.9900 #### [facility] [address] [place], [address] Platelet mean volume (Bld) [Entitic vol] 9.4 fL Normal 6.2-12.0 [facility] Comment on above: Order Comment: 107.1 Performed By: #### L 503.6030, L503.0105, L506.0250, L500.4050, L100.0100, L101.9900 #### [facility] [address] [place], [address] Platelets (Bld) [#/Vol] 390 10*3/uL Normal 150-450 [facility] Comment on above: Order Comment: 107.1 Performed By: #### L 503.6030, L503.0105, L506.0250, L500.4050, L100.0100, L101.9900 #### [facility] [address] [place], [address] RBC (Bld) [#/Vol] 3.19 10*6/uL Low 4.2-5.4 [facility] Comment on above: Order Comment: 107.1 Performed By: #### L 503.6030, L503.0105, L506.0250, L500.4050, L100.0100, L101.9900 #### [facility] [address] [place], [address] RDW SD 53.4 fl High 35.1-43.9 [facility] Comment on above: Order Comment: 107.1 Performed By: #### L 503.6030, L503.0105, L506.0250, L500.4050, L100.0100, L101.9900 #### [facility] [address] [place], [address] WBC (Bld) [#/Vol] 8.1 10*3/uL Normal 4.4-11.0 [facility] Comment on above: Order Comment: 107.1 Performed By: #### L 503.6030, L503.0105, L506.0250, L500.4050, L100.0100, L101.9900 #### [facility] [address] [facility] [address] [place], [place], [address] (407) Carbon dioxide, total [Moles /volume] in Central venous bloodOrdered By: Mario Mak on 01-15-2025 CO2 [Moles/Vol] 26.0 mmol/L 21.0-32.0 [facility] Chloride assayOrdered By: Moreno on 01-15-2025 Chloride [Moles/Vol] 101 mmol/L 98-108 [facility] Eosinophil percentageOrdered By: Mario Mak on 01-15-2025 Eosinophils/100 WBC (Bld) 4.1 % 0-5 [facility] Erythrocyte distribution wid th (RBC) [Ratio]Ordered By: Mario Mak on 01-15-2025 Erythrocyte distribution width (RBC) [Entitic vol] 53.4 fL High 35.1-43.9 [facility] Erythrocyte distribution wid th ratioOrdered By: Mario Mak on 01-15-2025 Erythrocyte distribution width (RBC) [Ratio] 16.0 % High 11.6-14.6 [facility] Erythrocyte distribution wid th standard deviationOrdered By: Mario Mak on 01-15-2025 Erythrocyte distribution width (RBC) [Ratio] 53.4 fl High 35.1-43.9 [facility] GFR/1.73 sq M.predicted ida g non-blacks MDRD (S/P/Bld) [Vol rate/Area]Ordered By: Mario Mak on 01-15-2025 Estimated GFR (MDRD) Non-Af Amer 75 >60 [facility] Comment on above: mL/min/1.73m2 CKD-EP I Creatinine Equation (2020) Glomerular filtration rate ( GFR) estimation/1.73 sq m using serum, plasma, or whole bOrdered By: Mario Mak on 01-15-2025 GFR/1.73 sq M.predicted among non-blacks MDRD (S/P/Bld) [Vol rate/Area] 75 mL/min/{1.73_m2} >60 [facility] Comment on above: mL/min/1.73m2 CKD-EP I Creatinine Equation (2020) Hematocrit Auto (Bld) [Volum e fraction]Ordered By: Mario Mak on 01-15-2025 Hematocrit (Bld) [Volume fraction] 29.0 % Low 37-47 [facility] Hemoglobin measurementOrdere d By: Mario Mak on 01-15-2025 Hemoglobin (Bld) [Mass/Vol] 9.4 g/dL Low 12.0-15.0 [facility] Immature granulocytes/100 WB C Auto (Bld)Ordered By: Mario Mak on 01-15-2025 Immature granulocytes/100 WBC (Bld) 1.100 % High 0.0-0.9 [facility] Comment on above: IG% - Immature Granu locytes (promyelocytes, myelocytes and metamyelocytes) > 1% indicates that a LEFT SHIFT is Present. Lymphocytes Auto (Unsp spec) [#/Vol]Ordered By: Mario Mak on 01-15-2025 Lymphocytes (Bld) [#/Vol] 1.16 10*3/uL 0.83-4.51 [facility] Lymphocytes/100 WBC Auto (Un sp spec)Ordered By: Mario Mak on 01-15-2025 Lymphocytes/100 WBC (Bld) 14.3 % Low 19-41 [facility] MCV (mean corpuscular volume ) determinationOrdered By: Mario Mak on 01-15-2025 MCV (RBC) [Entitic vol] 90.9 fL 81-99 [facility] Mean corpuscular hemoglobin (MCH) determinationOrdered By: Mario Mak on 01-15-2025 MCH (RBC) [Entitic mass] 29.5 pg 27.0-32.0 [facility] Mean corpuscular hemoglobin concentration (MCHC) determinationOrdered By: Mario Mak on 01-15-2025 MCHC (RBC) [Mass/Vol] 32.4 g/dL 32-36 [facility] Mean platelet volume determi nationOrdered By: Mario Mak on 01-15-2025 Platelet mean volume (Bld) [Entitic vol] 9.4 fL 6.2-12.0 [facility] Monocyte percentageOrdered B y: Mario Mak on 01-15-2025 Monocytes/100 WBC (Bld) 8.1 % 0-10 [facility] Neutrophil percentageOrdered By: Mario Mak on 01-15-2025 Neutrophils/100 WBC (Bld) 71.9 % High 47-70 [facility] Nucleated red blood cell per centageOrdered By: Mario Mak on 01-15-2025 Nucleated RBC/100 WBC (Bld) [Ratio] 0 % 0-5 [facility] Platelet countOrdered By: Moreno on 01-15-2025 Platelets (Bld) [#/Vol] 390 10*3/uL 150-450 [facility] Potassium (Unsp spec) [Mass/ Vol]Ordered By: Mario Mak on 01-15-2025 Potassium [Moles/Vol] 4.6 mmol/L 3.3-5.1 [facility] Potassium measurement (mass/ volume)Ordered By: Mario Mak on 01-15-2025 Potassium (Unsp spec) [Mass/Vol] 4.6 mmol/L 3.3-5.1 [facility] RBC Auto (Bld) [#/Vol]Ordere d By: Mario Mak on 01-15-2025 RBC (Bld) [#/Vol] 3.19 10*6/uL Low 4.2-5.4 [facility] Serum creatinine measurement (mass/volume)Ordered By: Mario Mak on 01-15-2025 Creatinine [Mass/Vol] 0.76 mg/dL 0.70-1.20 [facility] Serum glucose measurement (m ass/volume)Ordered By: Mario Mak on 01-15-2025 Glucose [Mass/Vol] 108 mg/dL High 70-99 [facility] Serum or plasma calcium roma urement (mass/volume)Ordered By: Mario Mak on 01-15-2025 Calcium [Mass/Vol] 9.1 mg/dL 7.6-11.0 [facility] Serum or plasma urea nitroge n measurement (mass/volume)Ordered By: Mario Mak on 01-15-2025 Urea nitrogen [Mass/Vol] 27 mg/dL High 4-19 [facility] Sodium levelOrdered By: Mario Mak on 01-15-2025 Sodium [Moles/Vol] 139 mmol/L 133-145 [facility] White blood cell (WBC) count Ordered By: Mario Mak on 01-15-2025 WBC (Bld) [#/Vol] 8.1 10*3/uL 4.4-11.0 [facility] CNOVon 01-08-2025 CNOV [facility] Absolute lymphocyte countOrd ered By: Mario Mak on 01-07-2025 Lymphocytes Auto (Unsp spec) [#/Vol] 0.98 10*3/uL 0.83-4.51 [facility] Absolute neutrophil countOrd ered By: Mario Mak on 01-07-2025 Neutrophils (Bld) [#/Vol] 5.7 10*3/uL 2.0-7.7 [facility] Albumin to globulin ratioOrd ered By: Mario Mak on 01-07-2025 Albumin/Globulin [Mass ratio] 0.6 {ratio} Low 0.9-2.4 [facility] Automated lymphocyte count a s percentage of total leukocytesOrdered By: Mario Mak on 01-07-2025 Lymphocytes/100 WBC Auto (Unsp spec) 12.6 % Low 19-41 [facility] Basophil percentageOrdered B y: Mario Mak on 01-07-2025 Basophils/100 WBC (Bld) 0.5 % 0-1 [facility] Bilirubin, totalOrdered By: Mario Mak on 02-24-2025 Bilirubin [Mass/Vol] 0.20 mg/dL 0.20-1.00 [facility] Comment on above: For patients on eltr ombopag therapy, use of Dimension Winner TBIL is not recommended. Blood urea nitrogen (BUN)/cr eatinine ratioOrdered By: Mario Mak on 01-07-2025 Urea nitrogen/Creatinine [Mass ratio] 37.0 mg/mg High 10-20 [facility] CBC W/Diff, Automatedon 12-16 Absolute Lymph 0.98 X10 3/uL Normal 0.83-4.51 [facility] Comment on above: Order Comment: 107.1 Performed By: #### L 503.6030, L503.0105, L506.0250, L500.4050, L100.0100, L101.9900 #### [facility] [address] [place], [address] Absolute Neut 5.7 X10 3/uL Normal 2.0-7.7 [facility] Comment on above: Order Comment: 107.1 Performed By: #### L 503.6030, L503.0105, L506.0250, L500.4050, L100.0100, L101.9900 #### [facility] [address] [place], [address] Basophils/100 WBC (Bld) 0.5 % Normal 0-1 [facility] Comment on above: Order Comment: 107.1 Performed By: #### L 503.6030, L503.0105, L506.0250, L500.4050, L100.0100, L101.9900 #### [facility] [address] [place], [address] Eosinophils/100 WBC (Bld) 3.2 % Normal 0-5 [facility] Comment on above: Order Comment: 107.1 Performed By: #### L 503.6030, L503.0105, L506.0250, L500.4050, L100.0100, L101.9900 #### [facility] [address] [place], [address] Erythrocyte distribution width (RBC) [Ratio] 16.5 % High 11.6-14.6 [facility] Comment on above: Order Comment: 107.1 Performed By: #### L 503.6030, L503.0105, L506.0250, L500.4050, L100.0100, L101.9900 #### [facility] [address] [place], [address] Hematocrit (Bld) [Volume fraction] 28.5 % Low 37-47 [facility] Comment on above: Order Comment: 107.1 Performed By: #### L 503.6030, L503.0105, L506.0250, L500.4050, L100.0100, L101.9900 #### [facility] [address] [place], [address] Hemoglobin (Bld) [Mass/Vol] 8.9 g/dL Low 12.0-15.0 [facility] Comment on above: Order Comment: 107.1 Performed By: #### L 503.6030, L503.0105, L506.0250, L500.4050, L100.0100, L101.9900 #### [facility] [address] [place], [address] IG% 0.600 Normal 0.0-0.9 [facility] Comment on above: Order Comment: 107.1 Result Comment: IG% - Immature Granulocytes (promyelocytes, myelocytes and metamyelocytes) > 1% indicates that a LEFT SHIFT is Present. Performed By: #### L 503.6030, L503.0105, L506.0250, L500.4050, L100.0100, L101.9900 #### [facility] [address] [place], [address] Lymphocytes/100 WBC (Bld) 12.6 % Low 19-41 [facility] Comment on above: Order Comment: 107.1 Performed By: #### L 503.6030, L503.0105, L506.0250, L500.4050, L100.0100, L101.9900 #### [facility] [address] [place], [address] MCH (RBC) [Entitic mass] 28.7 pg Normal 27.0-32.0 [facility] Comment on above: Order Comment: 107.1 Performed By: #### L 503.6030, L503.0105, L506.0250, L500.4050, L100.0100, L101.9900 #### [facility] [address] [place], [address] MCHC (RBC) [Mass/Vol] 31.2 g/dL Low 32-36 [facility] Comment on above: Order Comment: 107.1 Performed By: #### L 503.6030, L503.0105, L506.0250, L500.4050, L100.0100, L101.9900 #### [facility] [address] [place], [address] MCV (RBC) [Entitic vol] 91.9 fL Normal 81-99 [facility] Comment on above: Order Comment: 107.1 Performed By: #### L 503.6030, L503.0105, L506.0250, L500.4050, L100.0100, L101.9900 #### [facility] [address] [place], [address] Monocytes/100 WBC (Bld) 9.9 % Normal 0-10 [facility] Comment on above: Order Comment: 107.1 Performed By: #### L 503.6030, L503.0105, L506.0250, L500.4050, L100.0100, L101.9900 #### [facility] [address] [place], [address] Neutrophils/100 WBC (Bld) 73.2 % High 47-70 [facility] Comment on above: Order Comment: 107.1 Performed By: #### L 503.6030, L503.0105, L506.0250, L500.4050, L100.0100, L101.9900 #### [facility] [address] [place], [address] Nucleated RBC (Bld) [#/Vol] 0 10*3/uL Normal 0-5 [facility] Comment on above: Order Comment: 107.1 Performed By: #### L 503.6030, L503.0105, L506.0250, L500.4050, L100.0100, L101.9900 #### [facility] [address] [place], [address] Platelet mean volume (Bld) [Entitic vol] 9.8 fL Normal 6.2-12.0 [facility] Comment on above: Order Comment: 107.1 Performed By: #### L 503.6030, L503.0105, L506.0250, L500.4050, L100.0100, L101.9900 #### [facility] [address] [place], [address] Platelets (Bld) [#/Vol] 319 10*3/uL Normal 150-450 [facility] Comment on above: Order Comment: 107.1 Performed By: #### L 503.6030, L503.0105, L506.0250, L500.4050, L100.0100, L101.9900 #### [facility] [address] [place], [address] RBC (Bld) [#/Vol] 3.10 10*6/uL Low 4.2-5.4 [facility] Comment on above: Order Comment: 107.1 Performed By: #### L 503.6030, L503.0105, L506.0250, L500.4050, L100.0100, L101.9900 #### [facility] [address] [place], [address] RDW SD 56.5 fl High 35.1-43.9 [facility] Comment on above: Order Comment: 107.1 Performed By: #### L 503.6030, L503.0105, L506.0250, L500.4050, L100.0100, L101.9900 #### [facility] [address] [place], [address] WBC (Bld) [#/Vol] 7.8 10*3/uL Normal 4.4-11.0 [facility] Comment on above: Order Comment: 107.1 Performed By: #### L 503.6030, L503.0105, L506.0250, L500.4050, L100.0100, L101.9900 #### [facility] [address] [place], [address] Carbon dioxide measurementOr dered By: Mario Mak on 01-07-2025 CO2 [Moles/Vol] 28.0 mmol/L 21.0-32.0 [facility] Chloride measurementOrdered By: Mario Mak on 01-07-2025 Chloride [Moles/Vol] 105 mmol/L 98-107 [facility] Comprehensive Metabolic Prof ilon 01-07-2025 Albumin [Mass/Vol] 2.1 g/dL Low 3.2-5.0 [facility] Comment on above: Performed By: #### L 503.6030, L503.0105, L506.0250, L500.4050, L100.0100, L101.9900 #### [facility] [address] [place], [address] Albumin/Globulin [Mass ratio] 0.6 {ratio} Low 0.9-2.4 [facility] Comment on above: Performed By: #### L 503.6030, L503.0105, L506.0250, L500.4050, L100.0100, L101.9900 #### [facility] [address] [place], [address] ALK P 95 U/L Normal 45-117 [facility] Comment on above: Performed By: #### L 503.6030, L503.0105, L506.0250, L500.4050, L100.0100, L101.9900 #### [facility] [address] [place], [address] ALT [Catalytic activity/Vol] U/L Low 13-56 [facility] [facility] Comment on above: Performed By: #### L 503.6030, L503.0105, L506.0250, L500.4050, L100.0100, L101.9900 #### [facility] [address] [place], [address] AST [Catalytic activity/Vol] 21 U/L Normal 15-37 [facility] Comment on above: Performed By: #### L 503.6030, L503.0105, L506.0250, L500.4050, L100.0100, L101.9900 #### [facility] [address] [place], [address] Bilirubin [Mass/Vol] 0.20 mg/dL Normal 0.20-1.00 [facility] Comment on above: Result Comment: For patients on eltrombopag therapy, use of Dimension Winner TBIL is not recommended. Performed By: #### L 503.6030, L503.0105, L506.0250, L500.4050, L100.0100, L101.9900 #### [facility] [address] [place], [address] BUN/CRE 37.0 RATIO High 10-20 [facility] Comment on above: Performed By: #### L 503.6030, L503.0105, L506.0250, L500.4050, L100.0100, L101.9900 #### [facility] [address] [place], [address] CA,Total 8.6 mg/dL Normal 8.5-10.1 [facility] Comment on above: Performed By: #### L 503.6030, L503.0105, L506.0250, L500.4050, L100.0100, L101.9900 #### [facility] [address] [place], [address] Chloride [Moles/Vol] 105 mmol/L Normal 98-107 [facility] Comment on above: Performed By: #### L 503.6030, L503.0105, L506.0250, L500.4050, L100.0100, L101.9900 #### [facility] [address] [place], [address] CO2 [Moles/Vol] 28.0 mmol/L Normal 21.0-32.0 [facility] Comment on above: Performed By: #### L 503.6030, L503.0105, L506.0250, L500.4050, L100.0100, L101.9900 #### [facility] [address] [place], [address] Creatinine [Mass/Vol] 0.76 mg/dL Normal 0.55-1.02 [facility] Comment on above: Result Comment: The validity of the calculated GFR GFRAA in patients over 70 years has not been determined. Clinical correlation is essential. Performed By: #### L 503.6030, L503.0105, L506.0250, L500.4050, L100.0100, L101.9900 #### [facility] [address] [place], [address] EST GFR - AA 93 mL/min Normal >60 [facility] Comment on above: Result Comment: Afri can Greek GFR Calc Performed By: #### L 503.6030, L503.0105, L506.0250, L500.4050, L100.0100, L101.9900 #### [facility] [address] [place], [address] GAP 7 Normal 5-15 [facility] Comment on above: Performed By: #### L 503.6030, L503.0105, L506.0250, L500.4050, L100.0100, L101.9900 #### [facility] [address] [place], [address] GFR/1.73 sq M.predicted among non-blacks MDRD (S/P/Bld) [Vol rate/Area] 77 mL/min/{1.73_m2} Normal >60 [facility] Comment on above: Result Comment: Non- GFR Calc Performed By: #### L 503.6030, L503.0105, L506.0250, L500.4050, L100.0100, L101.9900 #### [facility] [address] [place], [address] Globulin (S) [Mass/Vol] 3.4 g/dL Normal 2.2-4.2 [facility] Comment on above: Performed By: #### L 503.6030, L503.0105, L506.0250, L500.4050, L100.0100, L101.9900 #### [facility] [address] [place], [address] Glucose [Mass/Vol] 58 mg/dL Low 74-106 [facility] Comment on above: Performed By: #### L 503.6030, L503.0105, L506.0250, L500.4050, L100.0100, L101.9900 #### [facility] [address] [place], [address] Potassium [Moles/Vol] 4.1 mmol/L Normal 3.5-5.1 [facility] Comment on above: Performed By: #### L 503.6030, L503.0105, L506.0250, L500.4050, L100.0100, L101.9900 #### [facility] [address] [place], [address] Sodium [Moles/Vol] 139 mmol/L Normal 136-145 [facility] Comment on above: Performed By: #### L 503.6030, L503.0105, L506.0250, L500.4050, L100.0100, L101.9900 #### [facility] [address] [place], [address] T PROT 5.5 g/dL Low 6.4-8.2 [facility] Comment on above: Performed By: #### L 503.6030, L503.0105, L506.0250, L500.4050, L100.0100, L101.9900 #### [facility] [address] [place], [address] Urea nitrogen [Mass/Vol] 28 mg/dL High 7-18 [facility] Comment on above: Performed By: #### L 503.6030, L503.0105, L506.0250, L500.4050, L100.0100, L101.9900 #### [facility] [address] [place], [address] Eosinophil percentageOrdered By: Mario Mak on 01-07-2025 Eosinophils/100 WBC (Bld) 3.2 % 0-5 [facility] Erythrocyte Sed Rateon 01-07 SED RATE 41 mm/hr High 0-30 [facility] Comment on above: Order Comment: 107.1 Performed By: #### L 503.6030, L503.0105, L506.0250, L500.4050, L100.0100, L101.9900 #### [facility] [place], [address] Erythrocyte distribution wid th (RBC) [Ratio]Ordered By: Mario Mak on 01-07-2025 Erythrocyte distribution width (RBC) [Entitic vol] 56.5 fL High 35.1-43.9 [facility] Erythrocyte distribution wid th ratioOrdered By: Mario Mak on 01-07-2025 Erythrocyte distribution width (RBC) [Ratio] 16.5 % High 11.6-14.6 [facility] Erythrocyte distribution wid th standard deviationOrdered By: Mario Mak on 01-07-2025 Erythrocyte distribution width (RBC) [Ratio] 56.5 fl High 35.1-43.9 [facility] Erythrocyte sedimentation ra teOrdered By: Mario Mak on 01-07-2025 ESR (Bld) [Velocity] 41 mm/h High 0-30 [facility] Estimated glomerular filtrat ion rate (GFR) AmericanOrdered By: Mario Mak on 01-07-2025 Estimated GFR (MDRD) Amer 93 mL/min >60 [facility] Comment on above: GFR Calc Glomerular filtration rate ( GFR) estimationOrdered By: Mario Mak on 01-07-2025 Estimated GFR (MDRD) Non-Af Amer 77 mL/min >60 [facility] Comment on above: Non- GFR Calc GFR/1.73 sq M.predicted among non-blacks MDRD (S/P/Bld) [Vol rate/Area] 77 mL/min/{1.73_m2} >60 [facility] Comment on above: Non- GFR Calc Glucose measurementOrdered B y: Mario Mak on 01-07-2025 Glucose [Mass/Vol] 58 mg/dL Low 74-106 [facility] Hematocrit Auto (Bld) [Volum e fraction]Ordered By: Mario Mak on 01-07-2025 Hematocrit (Bld) [Volume fraction] 28.5 % Low 37-47 [facility] Hemoglobin measurementOrdere d By: Mario Mak on 01-07-2025 Hemoglobin (Bld) [Mass/Vol] 8.9 g/dL Low 12.0-15.0 [facility] Immature granulocytes/100 WB C Auto (Bld)Ordered By: Mario Mak on 01-07-2025 Immature granulocytes/100 WBC (Bld) 0.600 % 0.0-0.9 [facility] Comment on above: IG% - Immature Granu locytes (promyelocytes, myelocytes and metamyelocytes) > 1% indicates that a LEFT SHIFT is Present. Laboratory - Chemistry and C hemistry - challengeOrdered By: Mario Mak on 01-07-2025 AST [Catalytic activity/Vol] 21 U/L 15-37 [facility] Lymphocytes Auto (Unsp spec) [#/Vol]Ordered By: Mario Mak on 01-07-2025 Lymphocytes (Bld) [#/Vol] 0.98 10*3/uL 0.83-4.51 [facility] Lymphocytes/100 WBC Auto (Un sp spec)Ordered By: Mario Mak on 01-07-2025 Lymphocytes/100 WBC (Bld) 12.6 % Low 19-41 [facility] MCV (mean corpuscular volume ) determinationOrdered By: Mario Mak on 01-07-2025 MCV (RBC) [Entitic vol] 91.9 fL 81-99 [facility] Mean corpuscular hemoglobin (MCH) determinationOrdered By: Mario Mak on 01-07-2025 MCH (RBC) [Entitic mass] 28.7 pg 27.0-32.0 [facility] Mean corpuscular hemoglobin concentration (MCHC) determinationOrdered By: Mario Mak on 01-07-2025 MCHC (RBC) [Mass/Vol] 31.2 g/dL Low 32-36 [facility] Mean platelet volume determi nationOrdered By: Mario Mak on 01-07-2025 Platelet mean volume (Bld) [Entitic vol] 9.8 fL 6.2-12.0 [facility] Monocyte percentageOrdered B y: Mario Mak on 01-07-2025 Monocytes/100 WBC (Bld) 9.9 % 0-10 [facility] Neutrophil percentageOrdered By: Mario Mak on 01-07-2025 Neutrophils/100 WBC (Bld) 73.2 % High 47-70 [facility] Nucleated red blood cell per centageOrdered By: Mario Mak on 01-07-2025 Nucleated RBC/100 WBC (Bld) [Ratio] 0 % 0-5 [facility] Platelet countOrdered By: Moreno on 01-07-2025 Platelets (Bld) [#/Vol] 319 10*3/uL 150-450 [facility] Potassium measurementOrdered By: Mario Mak on 01-07-2025 Potassium [Moles/Vol] 4.1 mmol/L 3.5-5.1 [facility] RBC Auto (Bld) [#/Vol]Ordere d By: Mario Mak on 01-07-2025 RBC (Bld) [#/Vol] 3.10 10*6/uL Low 4.2-5.4 [facility] Serum anion gap measurementO rdered By: Mario Mak on 01-07-2025 Anion gap [Moles/Vol] 7 mmol/L 5-15 [facility] Serum globulin measurementOr dered By: Mario Mak on 01-07-2025 Globulin (S) [Mass/Vol] 3.4 g/dL 2.2-4.2 [facility] Serum or plasma alanine melara otransferase (ALT) measurementOrdered By: Mario Mak on 01-07-2025 ALT [Catalytic activity/Vol] U/L Low 13-56 [facility] Serum or plasma albumin roma urement (mass/volume)Ordered By: Mario Mak on 01-07-2025 Albumin [Mass/Vol] 2.1 g/dL Low 3.2-5.0 [facility] Serum or plasma alkaline krystal sphatase measurementOrdered By: Mario Mak on 01-07-2025 ALP [Catalytic activity/Vol] 95 U/L 45-117 [facility] Serum or plasma calcium roma urement (mass/volume)Ordered By: Mario Mak on 01-07-2025 Calcium [Mass/Vol] 8.6 mg/dL 8.5-10.1 [facility] Serum or plasma creatinine m easurement (mass/volume)Ordered By: Mario Mak on 01-07-2025 Creatinine [Mass/Vol] 0.76 mg/dL 0.55-1.02 [facility] Comment on above: The validity of the calculated GFR & GFRAA in patients over 70 years has not been determined. Clinical correlation is essential. Serum or plasma urea nitroge n measurement (mass/volume)Ordered By: Mario Mak on 01-07-2025 Urea nitrogen [Mass/Vol] 28 mg/dL High 7-18 [facility] Sodium levelOrdered By: [facility] on 01-07-2025 Sodium [Moles/Vol] 139 mmol/L 136-145 [facility] Total proteinOrdered By: Shwetha Mak on 01-07-2025 Protein [Mass/Vol] 5.5 g/dL Low 6.4-8.2 [facility] White blood cell (WBC) count Ordered By: Mario Mak on 01-07-2025 WBC (Bld) [#/Vol] 7.8 10*3/uL 4.4-11.0 [facility] Pyridoxine [Mass/Vol]on 12-16 Interpretation and review of laboratory results Abnormal [facility] VITAMIN B6/PYRIDOXINon 01-06 Pyridoxine [Mass/Vol] 13.8 nmol/L Low 20.0 - 125.0 nmol/L [facility] Comment on above: INTERPRETIVE INFORMA TION: Vitamin B6 (Pyridoxal 5-Phosphate) Pyridoxal 5'-phosphate measured in a specimen collected following an 8-hour or overnight fast accurately indicates vitamin B6 nutritional status. Non-fasting specimen concentration reflects recent vitamin intake. This test was developed and its performance characteristics determined by [facility]. It has not been cleared or approved by the US Food and Drug Administration. This test was performed in a CLIA certified laboratory and is intended for clinical purposes. Performed By: [facility] [address] [place] [id number] [address] Supervisor: Marcellus Raza MD, PhD CLIA Number: [id number] CNOVon 01-04-2025 CNOV Office Visit (FERNANDOUAV ) YUSUF MEDINA ([id number]) 1935 [address] [place] Date Time Provider Department 01/04/25 8:00 AM TYESHA SINGLETON During your visit today, we recorded the following information about you: Pulse Respiration Blood pressure Weight 84/minute 16/minute 165/59 47 kg Height 1.524 m Tyesha Singleton MD 01/04/2025 9:10 AM Signed Yusuf Medina is a 89 year old female who presents for establishing care HPI: with h/o DM, referrd her to rheum for possible inflammaotry arthritis She was admitted to ER on 11/21/24 for rt ankle pain and swelling ,diagnosed with rt ankle cellulitis and later osteomyelitis of fibula s/p debridement and IV abx. While in hospital, had severe pain in all joints and Rheum consult obtained -suspicion for CPPD as xray of wrists and knees showed evidence of this and started on colchicine and mobic with dramatic improvement Currently she is in [place] and here with AVELINA and nurse aid who gives the history Currently she is pain free Also spoke with her nurse at [place] who states patient does nto complain of pain, pretty sedentary. No specific complaints at DC per nurse Currently doing well, no pain at present Family states after debridement of rt ankle- patient feels weak and does not want to walk around Was living alone until 2 months ago and now at [place]. Prior to debridement , patient was not walking around much per family member No rash, ulcers, fevers, swollen lymph nodes, DVT/PE, raynauds, sicca symptoms, trouble swallowing, back pain, red eyes, Chron's/UC or Psoriasis. MEDS/THERAPIES TRIED: Colchicine qd TYPICAL DAY: REVIEW OF SYSTEMS GENERAL: No weight loss, malaise or fevers., SEE HPI HEENT: Negative for frequent or significant headaches, No changes in hearing or vision, no nose bleeds or other nasal problems RESPIRATORY: Negative for cough, wheezing or shortness of breath. CARDIOVASCULAR: Negative for chest pain, leg swelling or palpitations. GI: Negative for abdominal discomfort, blood in stools or black stools or change in bowel habits MUSCULOSKELETAL :see HPI SKIN: Negative for lesions, rash, and itching. PSYCH: Negative for sleep disturbance, mood disorder and recent psychosocial stressors. NEURO: No history of syncope, paralysis, seizures or tremors All other reviewed and negative other than HPI. 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/25/2017 CKD (chronic kidney disease) 05/11/2016 Essential hypertension, benign Hyperlipidemia LDL goal < 100 02/12/2014 Intractable low back pain 08/25/2015 Osteoarthrosis, unspecified whether generalized or localized, other specified sites Left hip Plantar fasciitis 05/25/2017 Primary insomnia 05/25/2017 Renal dysfunction Type II or unspecified type diabetes mellitus without mention of complication, not stated as uncontrolled PAST SURGICAL HISTORY Procedure Laterality Date ARTHRP ACETBLR/PROX FEM PROSTC AGRFT/ALGRFT 11/14/2011 Hip replacement, total, L REMV CATARACT EXTRACAP,INSERT LENS Bilateral 2020 [facility] predniSONE (DELTASONE) 5 mg tablet Take 5 mg by mouth once daily. psyllium husk (METAMUCIL) 3.4 gram/5.4 gram powd Take 3.4 g by mouth once daily. One time a day for constipation acetaminophen 325 mg cap Take 325 mg by mouth two times a day. Give 2 tablets by mouth three times a day for pain for 2 weeks magnesium hydroxide (MILK OF MAGNESIA) 400 mg/5 mL suspension Take 5 mL by mouth once daily as needed for constipation (as needed for constipation). senna-docusate (SENEXON-S) 8.6-50 mg per tablet Take 1 tablet by mouth once daily. amLODIPine (NORVASC) 5 mg tablet TAKE 1 TABLET BY MOUTH ONCE DAILY ceFAZolin (ANCEF) 2 gram/100 mL in dextrose (iso-osmotic) Inject 100 mL intravenously every 8 hours. colchicine 0.6 mg tablet Take 1 tablet by mouth once daily. insulin glargine 100 unit/mL (3 mL) Inject 22 Units subcutaneously daily at bedtime. insulin lispro (HUMALOG U-100 INSULIN) 100 unit/mL injection Inject 8 Units subcutaneously three times a day before meals. Inject 8 units subcutaneously 3 times daily before meals. Check mealtime blood sugar and also administer correction scale.If Blood Glucose (mg/dL) is: Less than 110 Give 0 units 111-150 Give 0 units 151-200 Give 1 unit 201-250 Give 2 units 251-300 Give 3 units 301-350 Give 4 units 351-400 Give 5 units Greater than 400 Give 5 units and Notify Provider pantoprazole DR (PROTONIX) 40 mg tablet Take 1 tablet by mouth two times a day before meals at 6 am and 4 pm. lisinopril (ZESTRIL) 20 mg tablet Take 1 tablet by mouth once daily. metFORMIN (GLUCOPHAGE) 850 mg tablet TAKE 1 TABLET BY MOUTH TWICE DAILY WITH MEALS meloxicam (MOBIC) 15 mg tablet TAKE 1 TABLET BY MOUTH ONCE DAILY NEEDED FOR PAIN. DO NOT COMBINE WITH DICLOFENAC GEL traZODone (DESYREL) 50 mg tablet Take 1 tablet by mouth (more content not included)... Normal [facility]) [facility] ([id number]) 1935 [facility] Date Time Provider Department 01/03/25 MIGDALIA CRAMER 4CQ During your visit today, we recorded the following information about you: Alicia Coffey 01/03/2025 12:30 PM Addendum Received call from [facility]. The retail wireless sales representative has appointment with patient's sons this afternoon at 2 pm and is requesting Advanced Directive/POA paperwork that was scanned in on 12/31. Advised to send records request, but she is concerned about not having this paperwork by 2 pm meeting. Oil [employer]igger can be reached at [phone]. Fax number given for records request as well. Jame Tam MA 01/03/2025 4:16 PM Signed Records release was not signed. Please review and advice. Willie Kaur APRN.[facility] 01/04/2025 9:45 AM Signed Please advise [facility] that if patient signs record release, they can get any records they need from [facility] medical records. Or family can sign record request at assisted and assisted can fax Family Medicine the records request and I can send what I can. Our fax is [phone]. Willie Kaur APRN.Keke Page RN 01/04/2025 12:12 PM Signed Spoke with a litigation secretary at [facility], he took the info again to get us a signed records release faxed to the office. Please watch for fax Willie Kaur APRN.DRAKE 01/04/2025 4:20 PM Signed The initial note indicates that a retail wireless sales representative is calling and gave return phone number [phone]. I called this number and phone rang and rang numerous times. No voice mail. I can print of POA, stamp and fax since this is a facility to facility request. Given to nursing. If the retail wireless sales representative needs anything else and calls back, Please ask for name and direct line so that return call can be made. Thank you. Willie Kaur APRN.Sandrita Arevalo LPN 01/04/2025 4:29 PM Signed Received record release from [facility]. Faxed to number provided on form, confirmation fax received. Allergies As of Date: 01/03/2025 (No Known Allergies) Date Reviewed: 01/02/2025 Reviewed by: Evelia Bell LPN - Fully Assessed Reason for Visit: Patient Update [1234] Prescriptions as of 01/10/2025 - pyridoxine, vitamin B6, (VITAMIN B6) 50 mg tablet Take 1 tablet by mouth once daily. - predniSONE (DELTASONE) 5 mg tablet Take 5 mg by mouth once daily. - psyllium husk (METAMUCIL) 3.4 gram/5.4 gram powd Take 3.4 g by mouth once daily. One time a day for constipation - acetaminophen 325 mg cap Take 325 mg by mouth two times a day. Give 2 tablets by mouth three times a day for pain for 2 weeks - magnesium hydroxide (MILK OF MAGNESIA) 400 mg/5 mL suspension Take 5 mL by mouth once daily as needed for constipation (as needed for constipation). - senna-docusate (SENEXON-S) 8.6-50 mg per tablet Take 1 tablet by mouth once daily. - amLODIPine (NORVASC) 5 mg tablet TAKE 1 TABLET BY MOUTH ONCE DAILY - ceFAZolin (ANCEF) 2 gram/100 mL in dextrose (iso-osmotic) Inject 100 mL intravenously every 8 hours. - colchicine 0.6 mg tablet Take 1 tablet by mouth once daily. - insulin glargine 100 unit/mL (3 mL) Inject 22 Units subcutaneously daily at bedtime. - insulin lispro (HUMALOG U-100 INSULIN) 100 unit/mL injection Inject 8 Units subcutaneously three times a day before meals. Inject 8 units subcutaneously 3 times daily before meals. Check mealtime blood sugar and also administer correction scale.If Blood Glucose (mg/dL) is: Less than 110 Give 0 units 111-150 Give 0 units 151-200 Give 1 unit 201-250 Give 2 units 251-300 Give 3 units 301-350 Give 4 units 351-400 Give 5 units Greater than 400 Give 5 units and Notify Provider - pantoprazole DR (PROTONIX) 40 mg tablet Take 1 tablet by mouth two times a day before meals at 6 am and 4 pm. - lisinopril (ZESTRIL) 20 mg tablet Take 1 tablet by mouth once daily. - metFORMIN (GLUCOPHAGE) 850 mg tablet TAKE 1 TABLET BY MOUTH TWICE DAILY WITH MEALS - meloxicam (MOBIC) 15 mg tablet TAKE 1 TABLET BY MOUTH ONCE DAILY NEEDED FOR PAIN. DO NOT COMBINE WITH DICLOFENAC GEL - traZODone (DESYREL) 50 mg tablet Take 1 tablet by mouth at bedtime as needed for sedation. - pravastatin (PRAVACHOL) 20 mg tablet Take 1 tablet by mouth once daily. - diclofenac (VOLTAREN) 1 % topical gel Apply 2 g to affected area four times daily as needed. Meds Comments as of 03/30/2022: 03/30/22 The medications are managed by this patient by: CAREGIVER José Miguel Swanson [facility] Problem List As Of Date 01/03/2025 Noted Resolved Osteoarth NOS-other site [M19.90] 09/15/2011 BENIGN HYPERTENSION [I10] 12/01/2016 Diabetes mellitus (HCC) [E11.9] 04/10/2003 Esophageal reflux [K21.9] 06/15/2006 Lumbago [M54.50] 05/31/2007 09/15/2011 Urgency of urination [R39.15] (more content not included)... Normal [facility] COPPER BLOODon 01-03-2025 Copper [Mass/Vol] 128 ug/dL 80 - 155 ug/dL [facility] Comment on above: This test was develo ped, and its performance characteristics determined by the [facility] Department of Pathology and Laboratory Medicine. It has not been cleared or approved by the FDA. The [facility] Department of Pathology and Laboratory Medicine is regulated under CLIA as qualified to perform high-complexity testing. This test is used for clinical purposes. It should not be regarded as investigational or for research. Interpretation and review of laboratory results Normal [facility] FERRITINon 01-03-2025 Ferritin [Mass/Vol] 865 ng/mL High 14.7 - 2 05.1 ng/mL [facility] FOLATE, SERUMon 01-03-2025 Folate [Mass/Vol] 14.8 ng/mL 4.7 - PINF ng/mL [facility] Ferritin [Mass/Vol]on 2024 Interpretation and review of laboratory results Abnormal [facility] Iron and Iron binding capaci ty panelon 01-03-2025 Interpretation and review of laboratory results Normal [facility] Iron [Mass/Vol] 46 ug/dL 41 - 186 ug/dL [facility] Iron binding capacity [Mass/Vol] 245 ug/dL 232 - 386 ug/dL [facility] Iron/TIBC [Molar ratio] 18.8 % 15.0 - 57.0 % [facility] No Panel InformationOrdered By: Ok Mederos on 01-03-2025 [facility] No Panel Informationon 01-03 Interpretation and review of laboratory results Normal [facility] VITAMIN B12on 01-03-2025 Cobalamin (Vitamin B12) [Mass/Vol] 582 pg/mL 232 - 1245 pg/mL [facility] ZINC BLDOrdered By: Ok da silva on 01-03-2025 Zinc [Mass/Vol] 56 ug/dL Low 60 - 120 ug/dL [facility] Comment on above: This test was develo ped, and its performance characteristics determined by the [facility] Department of Pathology and Laboratory Medicine. It has not been cleared or approved by the FDA. The [facility] Department of Pathology and Laboratory Medicine is regulated under CLIA as qualified to perform high-complexity testing. This test is used for clinical purposes. It should not be regarded as investigational or for research. Zinc [Mass/Vol]Ordered By: Ricardo Mederos on 01-03-2025 Interpretation and review of laboratory results Abnormal [facility] CBC W Auto Differential pane l (Bld)on 01-02-2025 Basophils (Bld) [#/Vol] 0.03 10*3/uL [facility] Basophils/100 WBC (Bld) 0.3 % C [facility] Differential cell count method Nom (Bld) Auto [facility] Eosinophils (Bld) [#/Vol] 0.3 10*3/uL [facility] Eosinophils/100 WBC (Bld) 2.9 % [facility] Erythrocyte distribution width (RBC) [Ratio] 17.2 % High 11.5 - 15.0 % [facility] Hematocrit (Bld) [Volume fraction] 34.1 % Low 36.0 - 46.0 % [facility] Hemoglobin (Bld) [Mass/Vol] 10.5 g/dL Low 11.5 - 15.5 g/dL [facility] Immature granulocytes (Bld) [#/Vol] 0.1 10*3/uL High [facility] Immature granulocytes/100 WBC (Bld) 1 % [facility] Interpretation and review of laboratory results Abnormal [facility] Lymphocytes (Bld) [#/Vol] 0.78 10*3/uL Low [facility] Lymphocytes/100 WBC (Bld) 7.5 % [facility] MCH (RBC) [Entitic mass] 28.5 pg 26.0 - 34.0 pg [facility] MCHC (RBC) [Mass/Vol] 30.8 g/dL 30.5 - 36.0 g/dL [facility] MCV (RBC) [Entitic vol] 92.4 fL 80.0 - 100.0 fL [facility] Monocytes (Bld) [#/Vol] 0.61 10*3/uL [facility] Monocytes/100 WBC (Bld) 5.9 % C [facility] Neutrophils (Bld) [#/Vol] 8.56 10*3/uL High [facility] Neutrophils/100 WBC (Bld) 82.4 % [facility] Nucleated RBC (Bld) [#/Vol] NINF [facility] Nucleated RBC/100 WBC (Bld) [Ratio] 0 % /100 WBC [facility] Platelet mean volume (Bld) [Entitic vol] 8.7 fL Low 9.0 - 12.7 fL [facility] Platelets (Bld) [#/Vol] 362 10*3/uL [facility] RBC (Bld) [#/Vol] 3.69 10*6/uL Low 3.90 - 5.2 0 m/uL [facility] WBC (Bld) [#/Vol] 10.38 10*3/uL [facility] Basophils (Bld) [#/Vol] 0.03 10*3/uL Normal <0.11 [facility] Comment on above: Order Comment: Speci men Type: BLOOD SPECIMENOrdering Facility: [facility] Address: [address] [place] [address] Performed By: #### 5 7021-8 ####[facility] LABCLIA [id number] [place] [address] [place] Basophils/100 WBC (Bld) 0.3 % Normal C [facility] Comment on above: Order Comment: Speci men Type: BLOOD SPECIMENOrdering Facility: [facility] Address: [address] [place] [address] Performed By: #### 5 7021-8 ####[facility] LABCLIA [id number] [place] [address] [place] Differential cell count method Nom (Bld) Auto Normal [facility] Comment on above: Order Comment: Speci men Type: BLOOD SPECIMENOrdering Facility: [facility] Address: [address] [place] [address] Performed By: #### 5 7021-8 ####[facility] LABCLIA [id number] [place] [address] [place] Eosinophils (Bld) [#/Vol] 0.30 10*3/uL Normal <0.46 [facility] Comment on above: Order Comment: Speci men Type: BLOOD SPECIMENOrdering Facility: [facility] Address: [address] [place] [address] Performed By: #### 5 7021-8 ####[facility] LABCLIA [id number] [place] [address] [place] Eosinophils/100 WBC (Bld) 2.9 % Normal [facility] Comment on above: Order Comment: Speci men Type: BLOOD SPECIMENOrdering Facility: [facility] Address: [address] [place] [address] Performed By: #### 5 7021-8 ####[facility] LABCLIA [id number] [address] [place] Erythrocyte distribution width (RBC) [Ratio] 17.2 % High 11.5-15.0 [facility] Comment on above: Order Comment: Speci men Type: BLOOD SPECIMENOrdering Facility: [facility] Address: [address] [place] [address] Performed By: #### 5 7021-8 ####[facility] LABCLIA [id number] [address] [place] Hematocrit (Bld) [Volume fraction] 34.1 % Low 36.0-46.0 [facility] Comment on above: Order Comment: Speci men Type: BLOOD SPECIMENOrdering Facility: [facility] Address: [address] [place] [address] Performed By: #### 5 7021-8 ####[facility] LABCLIA [id number] [place] [address] [place] Hemoglobin (Bld) [Mass/Vol] 10.5 g/dL Low 11.5-15.5 [facility] Comment on above: Order Comment: Speci men Type: BLOOD SPECIMENOrdering Facility: [facility] Address: [address] [place] [address] Performed By: #### 5 7021-8 ####[facility] LABCLIA [id number] [place] [address] [place] Immature granulocytes (Bld) [#/Vol] 0.10 10*3/uL High <0.10 [facility] Comment on above: Order Comment: Speci men Type: BLOOD SPECIMENOrdering Facility: [facility] Address: [address] [place] [address] Performed By: #### 5 7021-8 ####[facility] LABCLIA [id number] [address] [place] Immature granulocytes/100 WBC (Bld) 1.0 % Normal [facility] Comment on above: Order Comment: Speci men Type: BLOOD SPECIMENOrdering Facility: [facility] Address: [address] [place] [address] Performed By: #### 5 7021-8 ####[facility] LABCLIA [id number] [address] [place] Lymphocytes (Bld) [#/Vol] 0.78 10*3/uL Low 1.00-4.00 [facility] Comment on above: Order Comment: Speci men Type: BLOOD SPECIMENOrdering Facility: [facility] Address: [address] [place] [address] Performed By: #### 5 7021-8 ####[facility] LABCLIA [id number] [address] Lymphocytes/100 WBC (Bld) 7.5 % Normal [facility] Comment on above: Order Comment: Speci men Type: BLOOD SPECIMENOrdering Facility: [facility] Address: [address] [place] [address] Performed By: #### 5 7021-8 ####[facility] LABCLIA [id number] [address] [place] MCH (RBC) [Entitic mass] 28.5 pg Normal 26.0-34.0 [facility] Comment on above: Order Comment: Speci men Type: BLOOD SPECIMENOrdering Facility: [facility] Address: [address] [place] [address] Performed By: #### 5 7021-8 ####[facility] LABCLIA [id number] [place] [address] [place] MCHC (RBC) [Mass/Vol] 30.8 g/dL Normal 30.5-36.0 [facility] Comment on above: Order Comment: Speci men Type: BLOOD SPECIMENOrdering Facility: [facility] Address: [address] [place] [address] Performed By: #### 5 7021-8 ####[facility] LABCLIA [id number] [place] [address] [place] MCV (RBC) [Entitic vol] 92.4 fL Normal 80.0-100.0 [facility] Comment on above: Order Comment: Speci men Type: BLOOD SPECIMENOrdering Facility: [facility] Address: [address] [place] [address] Performed By: #### 5 7021-8 ####[facility] LABCLIA [id number] [address] [place] Monocytes (Bld) [#/Vol] 0.61 10*3/uL Normal <0.87 [facility] Comment on above: Order Comment: Speci men Type: BLOOD SPECIMENOrdering Facility: [facility] Address: [address] [place] [address] Performed By: #### 5 7021-8 ####[facility] LABCLIA [id number] [address] Monocytes/100 WBC (Bld) 5.9 % Normal C [facility] Comment on above: Order Comment: Speci men Type: BLOOD SPECIMENOrdering Facility: [facility] Address: [address] [place] [address] Performed By: #### 5 7021-8 ####[facility] LABCLIA [id number] [address] [place] Neutrophils (Bld) [#/Vol] 8.56 10*3/uL High 1.45-7.50 [facility] Comment on above: Order Comment: Speci men Type: BLOOD SPECIMENOrdering Facility: [facility] Address: [address] [place] [address] Performed By: #### 5 7021-8 ####[facility] LABCLIA [id number] [address] [place] Neutrophils/100 WBC (Bld) 82.4 % Normal [facility] Comment on above: Order Comment: Speci men Type: BLOOD SPECIMENOrdering Facility: [facility] Address: [address] [place] [address] Performed By: #### 5 7021-8 ####[facility] LABCLIA [id number] [place] [address] [place] Nucleated RBC (Bld) [#/Vol] 10*3/uL Normal <0.01 [facility] Comment on above: Order Comment: Speci men Type: BLOOD SPECIMENOrdering Facility: [facility] Address: [address] [place] [address] Performed By: #### 5 7021-8 ####[facility] LABIA [id number] [place] [address] [place] Nucleated RBC/100 WBC (Bld) [Ratio] 0.0 /100 WBC Normal [facility] Comment on above: Order Comment: Speci men Type: BLOOD SPECIMENOrdering Facility: [facility] Address: [address] [place] [address] Performed By: #### 5 7021-8 ####[facility] LABCLIA [id number] [place] [address] [place] Platelet mean volume (Bld) [Entitic vol] 8.7 fL Low 9.0-12.7 [facility] Comment on above: Order Comment: Speci men Type: BLOOD SPECIMENOrdering Facility: [facility] Address: [address] [place] [address] Performed By: #### 5 7021-8 ####[facility] LABCLIA [id number] [place] [address] [place] Platelets (Bld) [#/Vol] 362 10*3/uL Normal 150-400 [facility] Comment on above: Order Comment: Speci men Type: BLOOD SPECIMENOrdering Facility: [facility] Address: [address] [place] [address] Performed By: #### 5 7021-8 ####[facility] LABCLIA [id number] [place] [address] [place] RBC (Bld) [#/Vol] 3.69 10*6/uL Low 3.90-5.20 [facility] Comment on above: Order Comment: Speci men Type: BLOOD SPECIMENOrdering Facility: [facility] Address: [address] [place] [address] Performed By: #### 5 7021-8 ####[facility] LABCLIA [id number] [place] [address] [place] WBC (Bld) [#/Vol] 10.38 10*3/uL Normal 3.70-11.00 [facility] Comment on above: Order Comment: Speci men Type: BLOOD SPECIMENOrdering Facility: [facility] Address: [address] [place] [address] Performed By: #### 5 7021-8 ####[facility] LABCLIA [id number] [address] [place] CNOVSPon 01-02-2025 CNOVSP Visit (SP) Office (HEMAST) YUSUF MEDINA ([id number]) 1935 [address] Date Time Provider Department 01/02/25 8:30 AM GRUPO MENDEZ During your visit today, we recorded the following information about you: Temperature Pulse Respiration Blood pressure 97.9 degrees 85/minute 18/minute 152/72 Weight 47 kg Grupo Mendez MD 01/31/2025 11:53 PM Signed Referring physician: Dr. Migdalia Cramer Presenting complaint: Patient Yusuf Medina returns for follow-up on leukocytosis, anemia. ASSESSMENT: (D72.829) Leukocytosis, unspecified type (primary encounter diagnosis) Comment: Patient is a delightful 89 year old lady with prior admission from 03/07/2023 to 03/09/2023 for leukocytosis and polyarthralgia. Prior Xray of the knee and wrists showed chondrocalcinosis. She was seen by rheumatology with recommendations for tap of her wrists which patient declined. CBC on 08/13/2024 showed WBC 17.15 Hb 10.9 HCT 33.5 MCV 87.9 Platelets 321 CBC on 08/14/2024 showed WBC 12.41 Hb 11.2 HCT 35.2 MCV 89.3 Platelets 330 Plan: Leukocytosis appeared reactive and neutrophilic. BCR/ABL was negative ruling out CML on 09/17/2024 Peripheral smear was negative for signs of dysplasia or immature cells Monitor. (D64.9) Normocytic anemia Comment: Hb was 7.8 on 12/12/2024 Plan: Obtain CBC, type and screen, iron studies, ferritin, folate, Vitamin B12, Vitamin B6, zinc, copper, CMP, sed rate. Pyridoxine, vitamin B6, (VITAMIN B6) 50 mg tablet daily (E53.1) Vitamin B6 deficiency Comment: deficient, Vitamin B6 level was 13.8 on 01/02/2025 Plan: pyridoxine, vitamin B6, (VITAMIN B6) 50 mg tablet daily. (L03.115) Cellulitis of right ankle Comment: presumed osteomyelitis of the right fibula with cultures from 11/27/2024 positive for staph aureus Plan: on broad spectrum antibiotics with cefazolin 2 gram every 8 hours via PICC line right side through next Tuesday, seeing ID on 01/08/2025, seeing rheumatology next Tuesday. Return in about 7 weeks (around 02/18/2025) for follow-up with provider. Medical Decision Making: Problems: Moderate: 1+ chronic illnesses with change and 2+ stable chronic illnesses Data: Unique test result(s) reviewed: 1 Unique test(s) ordered: 1 Assessment requiring an independent historian(s) Independent interpretation of test from other physician/QHCP Risk: Low: Low risk from testing/treatment Medical Decision Making Level: 4 - Moderate HPI: Patient is a delightful 88 year old lady with prior admission from 03/07/2023 to 03/09/2023 for leukocytosis and polyarthralgia. Prior Xray of the knee and wrists showed chondrocalcinosis. She was seen by rheumatology with recommendations for tap of her wrists which patient declined. CBC on 08/13/2024 showed WBC 17.15 Hb 10.9 HCT 33.5 MCV 87.9 Platelets 321 CBC on 08/14/2024 showed WBC 12.41 Hb 11.2 HCT 35.2 MCV 89.3 Platelets 330 Patient was diagnosed with presumed osteomyelitis of the right fibula with cultures from 11/27/2024 positive for staph aureus She is undergoing broad spectrum antibiotics through next Tuesday. She is seeing ID on 01/08/2025. She is seeing rheumatology next Tuesday. 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/25/2017 CKD (chronic kidney disease) 05/11/2016 Essential hypertension, benign Hyperlipidemia LDL goal < 100 02/12/2014 Intractable low back pain 08/25/2015 Osteoarthrosis, unspecified whether generalized or localized, other specified sites Left hip Plantar fasciitis 05/25/2017 Primary insomnia 05/25/2017 Renal dysfunction Type II or unspecified type diabetes mellitus without mention of complication, not stated as uncontrolled PAST SURGICAL HISTORY Procedure Laterality Date ARTHRP ACETBLR/PROX FEM PROSTC AGRFT/ALGRFT 11/14/2011 Hip replacement, total, L REMV CATARACT EXTRACAP,INSERT LENS Bilateral 2020 [facility] FAMILY HISTORY Problem Relation Age of Onset None Brother None Sister None Brother SOCIAL HISTORY Social History Tobacco Use Smoking status: Never Smokeless tobacco: Never Vaping Use Vaping status: Never Used Substance Use Topics Alcohol use: No Drug use: No ALLERGIES: ALLERGIES No Known Allergies MEDICATIONS: Current Outpatient Medications Medication Sig predniSONE (DELTASONE) 5 mg tablet Take 5 mg by mouth once daily. (Patient not taking: Reported on 01/04/2025) psyllium husk (METAMUCIL) 3.4 gram/5.4 gram powd Take 3.4 g by mouth once daily. One time a day for constipation acetaminophen 325 mg cap Take 325 mg by mouth two times a day. Give 2 tablets by mouth three times a day for pain for 2 weeks magnesium hydroxide (MILK OF MAGNESIA) 400 mg/5 mL suspension Take 5 mL by mouth once daily as needed for constipation (as needed for constipation). senna-docusate (SENEXON-S) 8.6-50 mg per tablet Take 1 tablet by mouth once daily. amLODI (more content not included)... Normal [facility] 01-02-2025 CNPN Telephone (HEMAST) CAROLYUSUF ([id number]) 1935 [facility] Date Time Provider Department 01/02/25 ADITI LOPEZ During your visit today, we recorded the following information about you: Aditi Lopez LISW 01/02/2025 4:03 PM Signed SOCIAL WORK Date of Service: Thursday January 02, 2025 [facility] [employer] D[employer] Server (SW) Adtii Lopez attempted to contact Yusuf Medina by phone using agricultural economist services to complete the distress assessment. Yusuf has been diagnosed with Normocytic anemia. She flagged for moderate depression on 12-31-24. 08/14/2018 11/21/2024 2024 PHQ-9 Score 9 13 12 LYRIC spoke with Yusuf's family member Mercedes. She advised that [place] is in [place] [facility] [place]. Mercedes advised that she completed the questionnaire without the patient. She also noted that Yusuf will most likely not understand the [employer] agricultural economist because she speaks a different dialect. At this time, social work service is declined/deferred based on: she pt is at a SNF and family member completed the questionnaire. Please re-consult social work if any other psychosocial needs arise. Unable To Reach Patient PLAN: Follow up on an as needed basis ALEJANDRO Encarnacion Allergies As of Date: 01/02/2025 (No Known Allergies) Date Reviewed: 01/02/2025 Reviewed by: Evelia Bell LPN - Fully Assessed Reason for Visit: Distress Assessment [Other] Prescriptions as of 01/02/2025 - predniSONE (DELTASONE) 5 mg tablet Take 5 mg by mouth once daily. - psyllium husk (METAMUCIL) 3.4 gram/5.4 gram powd Take 3.4 g by mouth once daily. One time a day for constipation - acetaminophen 325 mg cap Take 325 mg by mouth two times a day. Give 2 tablets by mouth three times a day for pain for 2 weeks - magnesium hydroxide (MILK OF MAGNESIA) 400 mg/5 mL suspension Take 5 mL by mouth once daily as needed for constipation (as needed for constipation). - senna-docusate (SENEXON-S) 8.6-50 mg per tablet Take 1 tablet by mouth once daily. - amLODIPine (NORVASC) 5 mg tablet TAKE 1 TABLET BY MOUTH ONCE DAILY - ceFAZolin (ANCEF) 2 gram/100 mL in dextrose (iso-osmotic) Inject 100 mL intravenously every 8 hours. - colchicine 0.6 mg tablet Take 1 tablet by mouth once daily. - insulin glargine 100 unit/mL (3 mL) Inject 22 Units subcutaneously daily at bedtime. - insulin lispro (HUMALOG U-100 INSULIN) 100 unit/mL injection Inject 8 Units subcutaneously three times a day before meals. Inject 8 units subcutaneously 3 times daily before meals. Check mealtime blood sugar and also administer correction scale.If Blood Glucose (mg/dL) is: Less than 110 Give 0 units 111-150 Give 0 units 151-200 Give 1 unit 201-250 Give 2 units 251-300 Give 3 units 301-350 Give 4 units 351-400 Give 5 units Greater than 400 Give 5 units and Notify Provider - pantoprazole DR (PROTONIX) 40 mg tablet Take 1 tablet by mouth two times a day before meals at 6 am and 4 pm. - lisinopril (ZESTRIL) 20 mg tablet Take 1 tablet by mouth once daily. - metFORMIN (GLUCOPHAGE) 850 mg tablet TAKE 1 TABLET BY MOUTH TWICE DAILY WITH MEALS - meloxicam (MOBIC) 15 mg tablet TAKE 1 TABLET BY MOUTH ONCE DAILY NEEDED FOR PAIN. DO NOT COMBINE WITH DICLOFENAC GEL - traZODone (DESYREL) 50 mg tablet Take 1 tablet by mouth at bedtime as needed for sedation. - pravastatin (PRAVACHOL) 20 mg tablet Take 1 tablet by mouth once daily. - diclofenac (VOLTAREN) 1 % topical gel Apply 2 g to affected area four times daily as needed. Meds Comments as of 03/30/2022: 03/30/22 The medications are managed by this patient by: CAREGIVER José Miguel Swanson [facility] Problem List As Of Date 01/02/2025 Noted Resolved Osteoarth NOS-other site [M19.90] 09/15/2011 BENIGN HYPERTENSION [I10] 12/01/2016 Diabetes mellitus (HCC) [E11.9] 04/10/2003 Esophageal reflux [K21.9] 06/15/2006 Lumbago [M54.50] 05/31/2007 09/15/2011 Urgency of urination [R39.15] 10/12/2007 09/15/2011 Urge incontinence [N39.41] 10/12/2007 12/01/2016 Other functional disorder of bladder [N31.8] 10/12/2007 09/15/2011 Retention of urine, unspecified [R33.9] 10/12/2007 12/01/2016 Postmenopausal atrophic vaginitis [N95.2] 10/12/2007 05/11/2016 Urinary frequency [R35.0] 01/11/2008 09/15/2011 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 Normal [facility] CONFIRM BLOOD TYPEon 025 ABO group Nom (Bld) O [facility] Rh Nom (Bld) Positive [facility] ABO O Normal [facility] Comment on above: Order Comment: Speci men Type: BLOOD SPECIMENOrdering Facility: [facility] Address: [address] [place] [address] Performed By: #### C ONABO ####[facility] BLO[facility] BANKCLIA [id number] [address] [place] Rh Nom (Bld) Positive Normal [facility] Comment on above: Order Comment: Speci men Type: BLOOD SPECIMENOrdering Facility: [facility] Address: [address] [place] [address] Performed By: #### C ONABO ####[facility] BLOOD BANKCLIA [id number] [place] [address] [place] COPPER BLOODon 01-02-2025 Copper [Mass/Vol] 128 ug/dL Normal 80-155 [facility] Comment on above: Order Comment: Speci men Type: BLOOD SPECIMENOrdering Facility: [facility] Address: [address] [place] [address] Result Comment: This test was developed, and its performance characteristics determined by the [facility] Department of Pathology and Laboratory Medicine. It has not been cleared or approved by the FDA. The [facility] Department of Pathology and Laboratory Medicine is regulated under CLIA as qualified to perform high-complexity testing. This test is used for clinical purposes. It should not be regarded as investigational or for research. Performed By: #### 5 763-8, COPPER ####[facility] LABCLIA [id number] [place] [address] [place] Comprehensive metabolic 2000 panelOrdered By: Aminta Lim on 01-02-2025 Albumin [Mass/Vol] 3.5 g/dL Low 3.9 - 4.9 g/dL [facility] ALP [Catalytic activity/Vol] 128 U/L High 34 - 123 U/L [facility] ALT [Catalytic activity/Vol] U/L Low 7 - 38 U/L [facility] Anion gap [Moles/Vol] 13 mmol/L 8 - 15 mmol/L [facility] AST [Catalytic activity/Vol] 15 U/L 13 - 35 U/L [facility] Bilirubin [Mass/Vol] 0.2 mg/dL 0.2 - 1 .3 mg/dL [facility] Calcium [Mass/Vol] 9.1 mg/dL 8.5 - 10. 2 mg/dL [facility] Chloride [Moles/Vol] 98 mmol/L 98 - 10 7 mmol/L [facility] CO2 [Moles/Vol] 26 mmol/L 22 - 30 mmol/L [facility] Creatinine [Mass/Vol] 0.82 mg/dL 0.58 - 0.96 mg/dL [facility] GFR/1.73 sq M.predicted among non-blacks MDRD (S/P/Bld) [Vol rate/Area] 68 mL/min/{1.73_m2} - PINF [facility] Comment on above: Estimated Glomerular Filtration Rate (eGFR) is calculated using the 2020 CKD-EPI creatinine equation. This equation utilizes serum creatinine, sex, and age as parameters. The creatinine assay has traceable calibration to isotope dilution-mass spectrometry. Refer to KDIGO guidelines for clinical interpretation. In patients with unstable renal function, e.g. those with acute kidney injury, the eGFR may not accurately reflect actual GFR. Glucose [Mass/Vol] 276 mg/dL High 74 - 99 mg/dL [facility] Comment on above: The [place] Diab[employer] s Association (ADA) provides guidance for cutoff values for fasting glucose and random glucose. The ADA defines fasting as no caloric intake for at least 8 hours. Fasting plasma glucose results between 100 to 125 mg/dL indicate increased risk for diabetes (prediabetes). Fasting plasma glucose results greater than or equal to 126 mg/dL meet the criteria for diagnosis of diabetes. In the absence of unequivocal hyperglycemia, results should be confirmed by repeat testing. In a patient with classic symptoms of hyperglycemia or hyperglycemic crisis, random plasma glucose results greater than or equal to 200 mg/dL meet the criteria for diagnosis of diabetes. Reference: Standards of Medical Care in Diabetes 2016, [place] Diabetes Association. Diabetes Care. 2016.39(Suppl 1). Interpretation and review of laboratory results Abnormal [facility] Potassium [Moles/Vol] 5.1 mmol/L 3.7 - 5.1 mmol/L [facility] Protein [Mass/Vol] 5.9 g/dL Low 6.3 - 8.0 g/dL [facility] Sodium [Moles/Vol] 137 mmol/L 136 - 144 mmol/L [facility] Urea nitrogen [Mass/Vol] 29 mg/dL High 7 - 21 mg/dL [facility] Comprehensive metabolic 2000 panelon 01-02-2025 Albumin [Mass/Vol] 3.5 g/dL Low 3.9-4.9 [facility] Comment on above: Order Comment: Speci halina Type: BLOOD SPECIMEN Ordering Facility: [facility] Address: [address] [place] [address] Performed By: #### 2 276-4, 2131-9, 06209-1, 2283-8 #### [facility] CLIA [id number] [address] [place] [address] [place] ALP [Catalytic activity/Vol] 128 U/L High 34-123 [facility] Comment on above: Order Comment: Speci halina Type: BLOOD SPECIMEN Ordering Facility: [facility] Address: [address] [place] [address] Performed By: #### 2 276-4, 2131-9, 86937-9, 8 #### [facility] CLIA [id number] [address] [place] [address] [place] ALT [Catalytic activity/Vol] U/L Low 7-38 [facility] Comment on above: Order Comment: Speci men Type: BLOOD SPECIMEN Ordering Facility: [facility] Address: [address] [place] [address] Performed By: #### 2 276-4, 2131-9, 63775-8, 2283-8 #### [facility] CLIA [id number] [address] [place] [address] [place] Anion gap [Moles/Vol] 13 mmol/L Normal 8-15 [facility] Comment on above: Order Comment: Speci men Type: BLOOD SPECIMEN Ordering Facility: [facility] Address: [address] [place] [address] Performed By: #### 2 276-4, 2-9, 56347-3, 2284-8 #### [facility] CLIA [id number] [address] [place] [address] [place] AST [Catalytic activity/Vol] 15 U/L Normal 13-35 [facility] Comment on above: Order Comment: Speci men Type: BLOOD SPECIMEN Ordering Facility: [facility] Address: [address] [place] [address] Performed By: #### 2 276-4, 2131-9, 52050-1, 2283-8 #### [facility] CLIA [id number] [address] [place] [address] [place] Bilirubin [Mass/Vol] 0.2 mg/dL Normal 0.2-1.3 [facility] Comment on above: Order Comment: Speci men Type: BLOOD SPECIMEN Ordering Facility: [facility] Address: [address] [place] [address] Performed By: #### 2 276-4, 2131-9, 18553-0, 2283-8 #### [facility] CLIA [id number] [address] [place] [address] [place] Calcium [Mass/Vol] 9.1 mg/dL Normal 8.5-10.2 [facility] Comment on above: Order Comment: Speci men Type: BLOOD SPECIMEN Ordering Facility: [facility] Address: [address] [place] [address] Performed By: #### 2 276-4, 2131-9, 48606-8, 228-8 #### [facility] CLIA [id number] [address] [place], [place] [address] [place] Chloride [Moles/Vol] 98 mmol/L Normal 98-107 [facility] Comment on above: Order Comment: Speci men Type: BLOOD SPECIMEN Ordering Facility: [facility] Address: [address] [place] [address] Performed By: #### 2 276-4, 2132-9, 90066-1, 2284-8 #### [facility] CLIA [id number] [address] [place] [address] [place] CO2 [Moles/Vol] 26 mmol/L Normal 22-30 [facility] Comment on above: Order Comment: Speci men Type: BLOOD SPECIMEN Ordering Facility: [facility] Address: [address] [place] [address] Performed By: #### 2 276-4, 2132-9, 09781-4, 2284-8 #### [facility] CLIA [id number] [address] [place] [address] [place] Creatinine [Mass/Vol] 0.82 mg/dL Normal 0.58-0.96 [facility] Comment on above: Order Comment: Speci men Type: BLOOD SPECIMEN Ordering Facility: [facility] Address: [address] [place] [address] Performed By: #### 2 276-4, 2132-9, 92719-0, 2284-8 #### [facility] CLIA [id number] [address] [place] [address] [place] Creatinine and Glomerular filtration rate.predicted panel (S/P/Bld) 68 mL/min/1.73m??? Normal >=60 [facility] Comment on above: Order Comment: Speci men Type: BLOOD SPECIMEN Ordering Facility: [facility] Address: [address] [place] [address] Result Comment: Hilda mated Glomerular Filtration Rate (eGFR) is calculated using the 2020 CKD-EPI creatinine equation. This equation utilizes serum creatinine, sex, and age as parameters. The creatinine assay has traceable calibration to isotope dilution-mass spectrometry. Refer to KDIGO guidelines for clinical interpretation. In patients with unstable renal function, e.g. those with acute kidney injury, the eGFR may not accurately reflect actual GFR. Performed By: #### 2 276-4, 9, 74794-5, 2284-06 #### [facility] CLIA [id number] [address] [place], [place] [address] [place] Glucose [Mass/Vol] 276 mg/dL High 74-99 [facility] Comment on above: Order Comment: Fan meade Type: BLOOD SPECIMEN Ordering Facility: [facility] Address: [address] [place] [address] Result Comment: The [place] Diabetes Association (ADA) provides guidance for cutoff values for fasting glucose and random glucose. The ADA defines fasting as no caloric intake for at least 8 hours. Fasting plasma glucose results between 100 to 125 mg/dL indicate increased risk for diabetes (prediabetes). Fasting plasma glucose results greater than or equal to 126 mg/dL meet the criteria for diagnosis of diabetes. In the absence of unequivocal hyperglycemia, results should be confirmed by repeat testing. In a patient with classic symptoms of hyperglycemia or hyperglycemic crisis, random plasma glucose results greater than or equal to 200 mg/dL meet the criteria for diagnosis of diabetes. Reference: Standards of Medical Care in Diabetes 2016, [place] Diabetes Association. Diabetes Care. 2016.39(Suppl 1). Performed By: #### 2 276-4, 9, 25802-0, 2284-06 #### [facility] CLIA [id number] [address] [place], [place] [address] [place] Potassium [Moles/Vol] 5.1 mmol/L Normal 3.7-5.1 [facility] Comment on above: Order Comment: Fan meade Type: BLOOD SPECIMEN Ordering Facility: [facility] Address: [address] [place] [address] Performed By: #### 2 276-4, 9, 21500-9, 2284-06 #### [facility] CLIA [id number] [address] [place] [address] [place] Protein [Mass/Vol] 5.9 g/dL Low 6.3-8.0 [facility] Comment on above: Order Comment: Speci men Type: BLOOD SPECIMEN Ordering Facility: [facility] Address: [address] [place] [address] Performed By: #### 2 276-4, 2131-9, 45074-8, 2284-8 #### [facility] CLIA [id number] [address] [place] [address] [place] Sodium [Moles/Vol] 137 mmol/L Normal 136-144 [facility] Comment on above: Order Comment: Speci men Type: BLOOD SPECIMEN Ordering Facility: [facility] Address: [address] [place] [address] Performed By: #### 2 276-4, 9, 40593-3, 2283-8 #### [facility] CLIA [id number] [address] [place] [address] [place] Urea nitrogen [Mass/Vol] 29 mg/dL High 7-21 [facility] Comment on above: Order Comment: Speci men Type: BLOOD SPECIMEN Ordering Facility: [facility] Address: [address] [place] [address] Performed By: #### 2 276-4, 9, 09256-4, 2284-8 #### [facility] CLIA [id number] [address] [place] [address] [place] ESR Westergren method (Bld) [Velocity]on 01-02-2025 ESR (Bld) [Velocity] 47 mm/h High [facility] Interpretation and review of laboratory results Abnormal [facility] ESR (Bld) [Velocity] 47 mm/h High 0-20 [facility] Comment on above: Order Comment: Speci men Type: BLOOD SPECIMEN Ordering Facility: [facility] Address: [address] [place] [address] Performed By: #### 2 276-4, 9, 14285-0, 2283-8 #### [facility] CLIA [id number] [address] [place] [address] [place] [facility] Ferritin [Mass/Vol] 865.0 ng/mL High 14.7-205.1 [facility] Comment on above: Order Comment: Speci men Type: BLOOD SPECIMEN Ordering Facility: [facility] Address: [address] [place] [address] Performed By: #### 2 276-4, 9, 53216-5, 8 #### [facility] CLIA [id number] [address] [place] [address] [place] [facility]20 25 Folate [Mass/Vol] 14.8 ng/mL Normal >4.7 [facility] Comment on above: Order Comment: Speci men Type: BLOOD SPECIMEN Ordering Facility: [facility] Address: [address] [place] [address] Performed By: #### 2 276-4, 9, 86560-2, 8 #### [facility] CLIA [id number] [address] [place] [address] [place] Iron and Iron binding capaci ty panelon 01-02-2025 Iron [Mass/Vol] 46 ug/dL Normal 41-186 [facility] Comment on above: Order Comment: Speci men Type: BLOOD SPECIMEN Ordering Facility: [facility] Address: [address] [place] [address] Performed By: #### 2 276-4, 9, 73564-6, 2283-8 #### [facility] CLIA [id number] [address] [place] [address] [place] Iron binding capacity [Mass/Vol] 245 ug/dL Normal 232-386 [facility] Comment on above: Order Comment: Speci men Type: BLOOD SPECIMEN Ordering Facility: [facility] Address: [address] [place] [address] Performed By: #### 2 276-4, 2132-9, 42687-0, 2284-8 #### [facility] CLIA [id number] [address] [place] [address] [place] Iron/TIBC [Molar ratio] 18.8 % Normal 15.0-57.0 [facility] Comment on above: Order Comment: Speci men Type: BLOOD SPECIMEN Ordering Facility: [facility] Address: [address] [place] [address] Performed By: #### 2 276-4, 2131-9, 47345-6, 2284-8 #### [facility] CLIA [id number] [address] [place] [address] [place] TYPE + SCREENon 01-02-2025 ABO group Nom (Bld) O [facility] Blood group antibody screen Ql Negative [facility] Rh Nom (Bld) Positive [facility] Type and Screen Expiration 01/05/2025 23:59 [facility] ABO O Normal [facility] Comment on above: Order Comment: Speci men Type: BLOOD SPECIMEN Ordering Facility: [facility] Address: [address] [place] [address] Performed By: #### B CRPB1 #### [facility] CLIA [id number] [address] [place] [address] [place] #### ISMRNCNPB #### [facility] CLIA [id number] [address] [place] [address] [place] Rh Nom (Bld) Positive Normal [facility] Comment on above: Order Comment: Speci men Type: BLOOD SPECIMEN Ordering Facility: [facility] Address: [address] [place] [address] Performed By: #### B CRPB1 #### [facility] CLIA [id number] [address] [place], [place] [address] [place] #### ISMRNCNPB #### [facility] CLIA [id number] [address] [place] [address] [place] TYPE AND SCREEN EXPIRATION 01/05/2025 23:59 Normal [facility] Comment on above: Order Comment: Speci men Type: BLOOD SPECIMEN Ordering Facility: [facility] Address: [address] [place] [address] Performed By: #### B CRPB1 #### [facility] CLIA [id number] [address] [place] [address] [place] #### ISMRNCNPB #### [facility] CLIA [id number] [address] [place] [address] [place] VITAMIN B6/PYRIDOXINon 01-02 VITAMIN B6 13.8 nmol/L Low 20.0-125.0 [facility] Comment on above: Order Comment: Speci men Type: BLOOD SPECIMEN Ordering Facility: [facility] Address: [address] [place] [address] Result Comment: INTE RPRETIVE INFORMATION: Vitamin B6 (Pyridoxal 5-Phosphate) Pyridoxal 5'-phosphate measured in a specimen collected following an 8-hour or overnight fast accurately indicates vitamin B6 nutritional status. Non-fasting specimen concentration reflects recent vitamin intake. This test was developed and its performance characteristics determined by [facility]. It has not been cleared or approved by the [place] Food and Drug Administration. This test was performed in a CLIA certified laboratory and is intended for clinical purposes. Performed By: [facility] [address] [place] [address] [employer] Supervisor: Marcellus Raza MD, PhD CLIA Number: [id number] Performed By: #### 2 276-4, 2132-9, 91336-9, 2284-8 #### [facility] CLIA [id number] [address] [place] [address] [place] Vit B12 SerPl-mCncon 025 Cobalamin (Vitamin B12) [Mass/Vol] 582 pg/mL Normal 232-1245 [facility] Comment on above: Order Comment: Specleroy meade Type: BLOOD SPECIMEN Ordering Facility: [facility] Address: [address] [place] [address] Performed By: #### 2 276-4, 2132-9, 95791-5, 2284-8 #### [facility] CLIA [id number] [address] [place] [address] [place] Zinc SerPl-mCncon 01-02-2025 Zinc [Mass/Vol] 56 ug/dL Low 60-120 [facility] Comment on above: Order Comment: Fan meade Type: BLOOD SPECIMENOrdering Facility: [facility] Address: [address] [place] [address] Result Comment: This test was developed, and its performance characteristics determined by the [facility] Department of Pathology and Laboratory Medicine. It has not been cleared or approved by the FDA. The [facility] Department of Pathology and Laboratory Medicine is regulated under CLIA as qualified to perform high-complexity testing. This test is used for clinical purposes. It should not be regarded as investigational or for research. Performed By: #### 5 763-8, COPPER ####[facility] [id number] [place] [address] [place] Absolute lymphocyte countOrd ered By: Mario Mak on 2024 Lymphocytes Auto (Unsp spec) [#/Vol] 0.88 10*3/uL 0.83-4.51 [facility] Absolute neutrophil countOrd ered By: Mario Mak on 2024 Neutrophils (Bld) [#/Vol] 5.4 10*3/uL 2.0-7.7 [facility] Albumin to globulin ratioOrd ered By: Mario Mak on 2024 Albumin/Globulin [Mass ratio] 0.7 {ratio} Low 0.9-2.4 [facility] Automated lymphocyte count a s percentage of total leukocytesOrdered By: Mario Mak on 2024 Lymphocytes/100 WBC Auto (Unsp spec) 11.9 % Low 19-41 [facility] Basophil percentageOrdered B y: Mario Mak on 2024 Basophils/100 WBC (Bld) 0.3 % 0-1 [facility] Bilirubin, totalOrdered By: Mario Mak on 2024 Bilirubin [Mass/Vol] 0.30 mg/dL 0.20-1.00 [facility] Comment on above: For patients on eltr ombopag therapy, use of Dimension Winner TBIL is not recommended. Blood urea nitrogen (BUN)/cr eatinine ratioOrdered By: Mario Mak on 2024 Urea nitrogen/Creatinine [Mass ratio] 30.9 mg/mg High 10-20 [facility] CBC W/Diff, Automatedon 12-15 Absolute Lymph 0.88 X10 3/uL Normal 0.83-4.51 [facility] Comment on above: Order Comment: 107.1 Performed By: #### L 503.6030, L503.0105, L506.0250, L500.4050, L100.0100, L101.9900 #### [facility] [address] [place], [address] Absolute Neut 5.4 X10 3/uL Normal 2.0-7.7 [facility] Comment on above: Order Comment: 107.1 Performed By: #### L 503.6030, L503.0105, L506.0250, L500.4050, L100.0100, L101.9900 #### [facility] [address] [place], [address] Basophils/100 WBC (Bld) 0.3 % Normal 0-1 [facility] Comment on above: Order Comment: 107.1 Performed By: #### L 503.6030, L503.0105, L506.0250, L500.4050, L100.0100, L101.9900 #### [facility] [address] [place], [address] Eosinophils/100 WBC (Bld) 6.3 % High 0-5 [facility] Comment on above: Order Comment: 107.1 Performed By: #### L 503.6030, L503.0105, L506.0250, L500.4050, L100.0100, L101.9900 #### [facility] [address] [place], [address] Erythrocyte distribution width (RBC) [Ratio] 17.1 % High 11.6-14.6 [facility] Comment on above: Order Comment: 107.1 Performed By: #### L 503.6030, L503.0105, L506.0250, L500.4050, L100.0100, L101.9900 #### [facility] [address] [place], [address] Hematocrit (Bld) [Volume fraction] 29.8 % Low 37-47 [facility] Comment on above: Order Comment: 107.1 Performed By: #### L 503.6030, L503.0105, L506.0250, L500.4050, L100.0100, L101.9900 #### [facility] [address] [place], [address] Hemoglobin (Bld) [Mass/Vol] 9.4 g/dL Low 12.0-15.0 [facility] Comment on above: Order Comment: 107.1 Performed By: #### L 503.6030, L503.0105, L506.0250, L500.4050, L100.0100, L101.9900 #### [facility] [address] [place], [address] IG% 1.100 High 0.0-0.9 [facility] Comment on above: Order Comment: 107.1 Result Comment: IG% - Immature Granulocytes (promyelocytes, myelocytes and metamyelocytes) > 1% indicates that a LEFT SHIFT is Present. Performed By: #### L 503.6030, L503.0105, L506.0250, L500.4050, L100.0100, L101.9900 #### [facility] [address] [place], [address] Lymphocytes/100 WBC (Bld) 11.9 % Low 19-41 [facility] Comment on above: Order Comment: 107.1 Performed By: #### L 503.6030, L503.0105, L506.0250, L500.4050, L100.0100, L101.9900 #### [facility] [address] [place], [address] MCH (RBC) [Entitic mass] 28.4 pg Normal 27.0-32.0 [facility] Comment on above: Order Comment: 107.1 Performed By: #### L 503.6030, L503.0105, L506.0250, L500.4050, L100.0100, L101.9900 #### [facility] [address] [place], [address] MCHC (RBC) [Mass/Vol] 31.5 g/dL Low 32-36 [facility] Comment on above: Order Comment: 107.1 Performed By: #### L 503.6030, L503.0105, L506.0250, L500.4050, L100.0100, L101.9900 #### [facility] [address] [place], [address] MCV (RBC) [Entitic vol] 90.0 fL Normal 81-99 [facility] Comment on above: Order Comment: 107.1 Performed By: #### L 503.6030, L503.0105, L506.0250, L500.4050, L100.0100, L101.9900 #### [facility] [address] [place], [address] Monocytes/100 WBC (Bld) 7.5 % Normal 0-10 [facility] Comment on above: Order Comment: 107.1 Performed By: #### L 503.6030, L503.0105, L506.0250, L500.4050, L100.0100, L101.9900 #### [facility] [address] [place], [address] Neutrophils/100 WBC (Bld) 72.9 % High 47-70 [facility] Comment on above: Order Comment: 107.1 Performed By: #### L 503.6030, L503.0105, L506.0250, L500.4050, L100.0100, L101.9900 #### [facility] [address] [place], [address] Nucleated RBC (Bld) [#/Vol] 0 10*3/uL Normal 0-5 [facility] Comment on above: Order Comment: 107.1 Performed By: #### L 503.6030, L503.0105, L506.0250, L500.4050, L100.0100, L101.9900 #### [facility] [address] [place], [address] Platelet mean volume (Bld) [Entitic vol] 9.2 fL Normal 6.2-12.0 [facility] Comment on above: Order Comment: 107.1 Performed By: #### L 503.6030, L503.0105, L506.0250, L500.4050, L100.0100, L101.9900 #### [facility] [address] [place], [address] Platelets (Bld) [#/Vol] 361 10*3/uL Normal 150-450 [facility] Comment on above: Order Comment: 107.1 Performed By: #### L 503.6030, L503.0105, L506.0250, L500.4050, L100.0100, L101.9900 #### [facility] [address] [place], [address] RBC (Bld) [#/Vol] 3.31 10*6/uL Low 4.2-5.4 [facility] Comment on above: Order Comment: 107.1 Performed By: #### L 503.6030, L503.0105, L506.0250, L500.4050, L100.0100, L101.9900 #### [facility] [address] [place], [address] RDW SD 56.3 fl High 35.1-43.9 [facility] Comment on above: Order Comment: 107.1 Performed By: #### L 503.6030, L503.0105, L506.0250, L500.4050, L100.0100, L101.9900 #### [facility] [address] [place], [address] WBC (Bld) [#/Vol] 7.4 10*3/uL Normal 4.4-11.0 [facility] Comment on above: Order Comment: 107.1 Performed By: #### L 503.6030, L503.0105, L506.0250, L500.4050, L100.0100, L101.9900 #### [facility] [address] [place], [address] Carbon dioxide measurementOr dered By: Mario Mak on 2024 CO2 [Moles/Vol] 28.0 mmol/L 21.0-32.0 [facility] Chloride measurementOrdered By: Mario Mak on 2024 Chloride [Moles/Vol] 102 mmol/L 98-107 [facility] Comprehensive Metabolic Prof ilon 2024 Albumin [Mass/Vol] 2.1 g/dL Low 3.2-5.0 [facility] Comment on above: Order Comment: 107.1 Performed By: #### L 503.6030, L503.0105, L506.0250, L500.4050, L100.0100, L101.9900 #### [facility] [address] [place], [address] Albumin/Globulin [Mass ratio] 0.7 {ratio} Low 0.9-2.4 [facility] Comment on above: Order Comment: 107.1 Performed By: #### L 503.6030, L503.0105, L506.0250, L500.4050, L100.0100, L101.9900 #### [facility] [address] [place], [address] ALK P 102 U/L Normal 45-117 [facility] Comment on above: Order Comment: 107.1 Performed By: #### L 503.6030, L503.0105, L506.0250, L500.4050, L100.0100, L101.9900 #### [facility] [address] [place], [address] ALT [Catalytic activity/Vol] U/L Low 13-56 [facility] Comment on above: Order Comment: 107.1 Performed By: #### L 503.6030, L503.0105, L506.0250, L500.4050, L100.0100, L101.9900 #### [facility] [address] [place], [address] AST [Catalytic activity/Vol] 15 U/L Normal 15-37 [facility] Comment on above: Order Comment: 107.1 Performed By: #### L 503.6030, L503.0105, L506.0250, L500.4050, L100.0100, L101.9900 #### [facility] [address] [place], [address] Bilirubin [Mass/Vol] 0.30 mg/dL Normal 0.20-1.00 [facility] Comment on above: Order Comment: 107.1 Result Comment: For patients on eltrombopag therapy, use of Dimension Winner TBIL is not recommended. Performed By: #### L 503.6030, L503.0105, L506.0250, L500.4050, L100.0100, L101.9900 #### [facility] [address] [place], [address] BUN/CRE 30.9 RATIO High 10-20 [facility] Comment on above: Order Comment: 107.1 Performed By: #### L 503.6030, L503.0105, L506.0250, L500.4050, L100.0100, L101.9900 #### [facility] [address] [place], [address] CA,Total 8.7 mg/dL Normal 8.5-10.1 [facility] Comment on above: Order Comment: 107.1 Performed By: #### L 503.6030, L503.0105, L506.0250, L500.4050, L100.0100, L101.9900 #### [facility] [address] [place], [address] Chloride [Moles/Vol] 102 mmol/L Normal 98-107 [facility] Comment on above: Order Comment: 107.1 Performed By: #### L 503.6030, L503.0105, L506.0250, L500.4050, L100.0100, L101.9900 #### [facility] [address] [place], [address] CO2 [Moles/Vol] 28.0 mmol/L Normal 21.0-32.0 [facility] Comment on above: Order Comment: 107.1 Performed By: #### L 503.6030, L503.0105, L506.0250, L500.4050, L100.0100, L101.9900 #### [facility] [address] [place], [address] Creatinine [Mass/Vol] 0.87 mg/dL Normal 0.55-1.02 [facility] Comment on above: Order Comment: 107.1 Result Comment: The validity of the calculated GFR GFRAA in patients over 70 years has not been determined. Clinical correlation is essential. Performed By: #### L 503.6030, L503.0105, L506.0250, L500.4050, L100.0100, L101.9900 #### [facility] [address] [place], [address] EST GFR - AA 79 mL/min Normal >60 [facility] Comment on above: Order Comment: 107.1 Result Comment: Afri can Greek GFR Calc Performed By: #### L 503.6030, L503.0105, L506.0250, L500.4050, L100.0100, L101.9900 #### [facility] [address] [place], [address] GAP 7 Normal 5-15 [facility] Comment on above: Order Comment: 107.1 Performed By: #### L 503.6030, L503.0105, L506.0250, L500.4050, L100.0100, L101.9900 #### [facility] [address] [place], [address] GFR/1.73 sq M.predicted among non-blacks MDRD (S/P/Bld) [Vol rate/Area] 65 mL/min/{1.73_m2} Normal >60 [facility] Comment on above: Order Comment: 107.1 Result Comment: Non- GFR Calc Performed By: #### L 503.6030, L503.0105, L506.0250, L500.4050, L100.0100, L101.9900 #### [facility] [address] [place], [address] Globulin (S) [Mass/Vol] 3.1 g/dL Normal 2.2-4.2 [facility] Comment on above: Order Comment: 107.1 Performed By: #### L 503.6030, L503.0105, L506.0250, L500.4050, L100.0100, L101.9900 #### [facility] [address] [place], [address] Glucose [Mass/Vol] 192 mg/dL High 74-106 [facility] Comment on above: Order Comment: 107.1 Result Comment: Fast ing Glucose result greater than or equal to 126 mg/dL suggests DIABETES MELLITUS per A.D.A. criteria. Performed By: #### L 503.6030, L503.0105, L506.0250, L500.4050, L100.0100, L101.9900 #### [facility] [address] [place], [address] Potassium [Moles/Vol] 3.9 mmol/L Normal 3.5-5.1 [facility] Comment on above: Order Comment: 107.1 Performed By: #### L 503.6030, L503.0105, L506.0250, L500.4050, L100.0100, L101.9900 #### [facility] [address] [place], [address] Sodium [Moles/Vol] 137 mmol/L Normal 136-145 [facility] Comment on above: Order Comment: 107.1 Performed By: #### L 503.6030, L503.0105, L506.0250, L500.4050, L100.0100, L101.9900 #### [facility] [address] [place], [address] T PROT 5.2 g/dL Low 6.4-8.2 [facility] Comment on above: Order Comment: 107.1 Performed By: #### L 503.6030, L503.0105, L506.0250, L500.4050, L100.0100, L101.9900 #### [facility] [address] [place], [place], [address] Urea nitrogen [Mass/Vol] 27 mg/dL High 7-18 [facility] Comment on above: Order Comment: 107.1 Performed By: #### L 503.6030, L503.0105, L506.0250, L500.4050, L100.0100, L101.9900 #### [facility] [address] [place], [place], [address] Eosinophil percentageOrdered By: Mario Mak on 2024 Eosinophils/100 WBC (Bld) 6.3 % High 0-5 [facility] Erythrocyte Sed Rateon 12-31 SED RATE 27 mm/hr Normal 0-30 [facility] Comment on above: Order Comment: 107.1 Performed By: #### L 503.6030, L503.0105, L506.0250, L500.4050, L100.0100, L101.9900 #### [facility] [address] [place], [place], [address] Erythrocyte distribution wid th (RBC) [Ratio]Ordered By: Mario Mak on 2024 Erythrocyte distribution width (RBC) [Entitic vol] 56.3 fL High 35.1-43.9 [facility] Erythrocyte distribution wid th ratioOrdered By: Mario Mak on 2024 Erythrocyte distribution width (RBC) [Ratio] 17.1 % High 11.6-14.6 [facility] Erythrocyte distribution wid th standard deviationOrdered By: Mario Mak on 2024 Erythrocyte distribution width (RBC) [Ratio] 56.3 fl High 35.1-43.9 [facility] Erythrocyte sedimentation ra teOrdered By: Mario Mak on 2024 ESR (Bld) [Velocity] 27 mm/h 0-30 [facility] Estimated glomerular filtrat ion rate (GFR) AmericanOrdered By: Mario Mak on 2024 Estimated GFR (MDRD) Amer 79 mL/min >60 [facility] Comment on above: GFR Calc Glomerular filtration rate ( GFR) estimationOrdered By: Mario Mak on 2024 Estimated GFR (MDRD) Non-Af Amer 65 mL/min >60 [facility] Comment on above: Non- GFR Calc GFR/1.73 sq M.predicted among non-blacks MDRD (S/P/Bld) [Vol rate/Area] 65 mL/min/{1.73_m2} >60 [facility] Comment on above: Non- GFR Calc Glucose measurementOrdered B y: Mario Mak on 2024 Glucose [Mass/Vol] 192 mg/dL High 74-106 [facility] Comment on above: Fasting Glucose resu lt greater than or equal to 126 mg/dL suggests DIABETES MELLITUS per A.D.A. criteria. Hematocrit Auto (Bld) [Volum e fraction]Ordered By: Mario Mak on 2024 Hematocrit (Bld) [Volume fraction] 29.8 % Low 37-47 [facility] Hemoglobin measurementOrdere d By: Mario Mak on 2024 Hemoglobin (Bld) [Mass/Vol] 9.4 g/dL Low 12.0-15.0 [facility] Immature granulocytes/100 WB C Auto (Bld)Ordered By: Mario Mak on 2024 Immature granulocytes/100 WBC (Bld) 1.100 % High 0.0-0.9 [facility] Comment on above: IG% - Immature Granu locytes (promyelocytes, myelocytes and metamyelocytes) > 1% indicates that a LEFT SHIFT is Present. Laboratory - Chemistry and C hemistry - challengeOrdered By: Mario Mak on 2024 AST [Catalytic activity/Vol] 15 U/L 15-37 [facility] Lymphocytes Auto (Unsp spec) [#/Vol]Ordered By: Mario Mak on 2024 Lymphocytes (Bld) [#/Vol] 0.88 10*3/uL 0.83-4.51 [facility] Lymphocytes/100 WBC Auto (Un sp spec)Ordered By: Mario Mak on 2024 Lymphocytes/100 WBC (Bld) 11.9 % Low 19-41 [facility] MCV (mean corpuscular volume ) determinationOrdered By: Mario Mak on 2024 MCV (RBC) [Entitic vol] 90.0 fL 81-99 [facility] Mean corpuscular hemoglobin (MCH) determinationOrdered By: Mario Mak on 2024 MCH (RBC) [Entitic mass] 28.4 pg 27.0-32.0 [facility] Mean corpuscular hemoglobin concentration (MCHC) determinationOrdered By: Mario Mak on 2024 MCHC (RBC) [Mass/Vol] 31.5 g/dL Low 32-36 [facility] Mean platelet volume determi nationOrdered By: Mario Mak on 2024 Platelet mean volume (Bld) [Entitic vol] 9.2 fL 6.2-12.0 [facility] Monocyte percentageOrdered B y: Mario Mak on 2024 Monocytes/100 WBC (Bld) 7.5 % 0-10 [facility] Neutrophil percentageOrdered By: Mario Mak on 2024 Neutrophils/100 WBC (Bld) 72.9 % High 47-70 [facility] Nucleated red blood cell per centageOrdered By: Mario Mak on 2024 Nucleated RBC/100 WBC (Bld) [Ratio] 0 % 0-5 [facility] Platelet countOrdered By: Moreno on 2024 Platelets (Bld) [#/Vol] 361 10*3/uL 150-450 [facility] Potassium measurementOrdered By: Mario Mak on 2024 Potassium [Moles/Vol] 3.9 mmol/L 3.5-5.1 [facility] RBC Auto (Bld) [#/Vol]Ordere d By: Mario Mak on 2024 RBC (Bld) [#/Vol] 3.31 10*6/uL Low 4.2-5.4 [facility] Serum anion gap measurementO rdered By: Mario Mak on 2024 Anion gap [Moles/Vol] 7 mmol/L 5-15 [facility] Serum globulin measurementOr dered By: Mario Mak on 2024 Globulin (S) [Mass/Vol] 3.1 g/dL 2.2-4.2 [facility] Serum or plasma alanine melara otransferase (ALT) measurementOrdered By: Mario Mak on 2024 ALT [Catalytic activity/Vol] U/L Low 13-56 [facility] Serum or plasma albumin roma urement (mass/volume)Ordered By: Mario Mak on 2024 Albumin [Mass/Vol] 2.1 g/dL Low 3.2-5.0 [facility] Serum or plasma alkaline krystal sphatase measurementOrdered By: Mario Mak on 2024 ALP [Catalytic activity/Vol] 102 U/L 45-117 [facility] Serum or plasma calcium roma urement (mass/volume)Ordered By: Mario Mak on 2024 Calcium [Mass/Vol] 8.7 mg/dL 8.5-10.1 [facility] Serum or plasma creatinine m easurement (mass/volume)Ordered By: Mario Mak on 2024 Creatinine [Mass/Vol] 0.87 mg/dL 0.55-1.02 [facility] Comment on above: The validity of the calculated GFR & GFRAA in patients over 70 years has not been determined. Clinical correlation is essential. Serum or plasma urea nitroge n measurement (mass/volume)Ordered By: Mario Mak on 2024 Urea nitrogen [Mass/Vol] 27 mg/dL High 7-18 [facility] Sodium levelOrdered By: Mario Mak on 2024 Sodium [Moles/Vol] 137 mmol/L 136-145 [facility] Total proteinOrdered By: Shwetha Mak on 2024 Protein [Mass/Vol] 5.2 g/dL Low 6.4-8.2 [facility] White blood cell (WBC) count Ordered By: Mario Mak on 2024 WBC (Bld) [#/Vol] 7.4 10*3/uL 4.4-11.0 [facility] [place] 12-26-2024 CNOV Normal [facility] CNPNon 12-26-2024 DRAKEN Telephone (INTMIN) YUSUF MEDINA ([id number]) 1935 F [address] Date Time Provider Department 12/26/24 MIGDALIA CRAMER During your visit today, we recorded the following information about you: Nikia Trinidad 12/26/2024 9:24 AM Signed Patients caregiver demetria tapia calling to have her Snapsheet message she sent below addressed. Yusuf Roblse's sons and are in town to make an assessment whether she is able to go home from rehab. Can you talk with them to help with their decision? Please call Nathaniel Medina at [phone]. They are here till Tuesday 12 noon. Thank you. Willie Kaur APRN.DRAKE 12/26/2024 1:10 PM Signed I wish I could help, but I'm not confident that our office would be able to give appropriate discharge advice. Rehab physical therapy, occupational therapy, nursing, and providers are the best to decide if patient can be safely discharged from rehab. Our office would agree with their recommendations since they are evaluating her medical and physical safety for discharge. Willie Kaur APRN.Cheryl Pastor, RN 12/26/2024 1:21 PM Signed Contacted son Nathaniel--advised we do not have POA from pt to disclose health information to him Advised Nathaniel that the rehab team will need to make determination if pt is able to be discharged from rehab, we are unable to make that decision or act on pt behalf until she is discharged. Nathaniel states he will get a POA to act on pt's behalf Willie Kaur APRN.DRAKE 12/26/2024 2:46 PM Signed Noted Willie Kaur APRN.[place]AG [place] Allergies As of Date: 12/26/2024 (No Known Allergies) Date Reviewed: 12/26/2024 Reviewed by: Sravanthi Hollis RN - Fully Assessed Reason for Visit: rehab discharge concerns [Other] Prescriptions as of 12/26/2024 - amLODIPine (NORVASC) 5 mg tablet TAKE 1 TABLET BY MOUTH ONCE DAILY - ceFAZolin (ANCEF) 2 gram/100 mL in dextrose (iso-osmotic) Inject 100 mL intravenously every 8 hours. - colchicine 0.6 mg tablet Take 1 tablet by mouth once daily. - insulin glargine 100 unit/mL (3 mL) Inject 22 Units subcutaneously daily at bedtime. - insulin lispro (HUMALOG U-100 INSULIN) 100 unit/mL injection Inject 8 Units subcutaneously three times a day before meals. Inject 8 units subcutaneously 3 times daily before meals. Check mealtime blood sugar and also administer correction scale.If Blood Glucose (mg/dL) is: Less than 110 Give 0 units 111-150 Give 0 units 151-200 Give 1 unit 201-250 Give 2 units 251-300 Give 3 units 301-350 Give 4 units 351-400 Give 5 units Greater than 400 Give 5 units and Notify Provider - pantoprazole DR (PROTONIX) 40 mg tablet Take 1 tablet by mouth two times a day before meals at 6 am and 4 pm. - lisinopril (ZESTRIL) 20 mg tablet Take 1 tablet by mouth once daily. - predniSONE (DELTASONE) 5 mg tablet Take 4 tablets by mouth once daily for 4 days, THEN 3 tablets once daily for 5 days, THEN 2 tablets once daily for 5 days, THEN 1 tablet once daily for 5 days. - metFORMIN (GLUCOPHAGE) 850 mg tablet TAKE 1 TABLET BY MOUTH TWICE DAILY WITH MEALS - meloxicam (MOBIC) 15 mg tablet TAKE 1 TABLET BY MOUTH ONCE DAILY NEEDED FOR PAIN. DO NOT COMBINE WITH DICLOFENAC GEL - traZODone (DESYREL) 50 mg tablet Take 1 tablet by mouth at bedtime as needed for sedation. - pravastatin (PRAVACHOL) 20 mg tablet Take 1 tablet by mouth once daily. - diclofenac (VOLTAREN) 1 % topical gel Apply 2 g to affected area four times daily as needed. Meds Comments as of 03/30/2022: 03/30/22 The medications are managed by this patient by: CAREGIVER José Miguel Sky [facility] Problem List As Of Date 12/26/2024 Noted Resolved Osteoarth NOS-other site [M19.90] 09/15/2011 BENIGN HYPERTENSION [I10] 12/01/2016 Diabetes mellitus (HCC) [E11.9] 04/10/2003 Esophageal reflux [K21.9] 06/15/2006 Lumbago [M54.50] 05/31/2007 09/15/2011 Urgency of urination [R39.15] 10/12/2007 09/15/2011 Urge incontinence [N39.41] 10/12/2007 12/01/2016 Other functional disorder of bladder [N31.8] 10/12/2007 09/15/2011 Retention of urine, unspecified [R33.9] 10/12/2007 12/01/2016 Postmenopausal atrophic vaginitis [N95.2] 10/12/2007 05/11/2016 Urinary frequency [R35.0] 01/11/2008 09/15/2011 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] 04/18/2008 09/15/2011 Vertigo of central origin [H81.4] 01/08/2010 09/15/2011 Peripheral vertigo, unspecified [H81.399] 01/08/2010 09/15/2011 Diabetes Mellitus Type II, Uncontrolled; 1999 [*02/22/2010 12/01/2016 Degenerative arthritis of hip [M16.9] 10/31/2010 09/23/2014 Pain in joint, pelvic region and thigh [M25.559]10/31/2010 09/15/2011 Thoracic or lumbosacral neuritis or radiculitis*10/31/2010 09/15/2011 Lumbosacral spondylosis without myelopathy [M47*10/31/2010 09/15/2011 Degeneration of lumbar or lumbosacral intervert*10/31/2010 Osteoarth NOS-pelvis [M16.10] 11/16/2010 09/15/2011 Hyperlipidemia [E78.5] 02/19/2011 02/12/2014 (more content not included)... Normal [facility] Absolute lymphocyte countOrd ered By: Mario Mak on 12-24-2024 Lymphocytes Auto (Unsp spec) [#/Vol] 0.98 10*3/uL 0.83-4.51 [facility] Absolute neutrophil countOrd ered By: Mario Mak on 12-24-2024 Neutrophils (Bld) [#/Vol] 3.8 10*3/uL 2.0-7.7 [facility] Albumin to globulin ratioOrd ered By: Mario Mak on 12-24-2024 Albumin/Globulin [Mass ratio] 0.6 {ratio} Low 0.9-2.4 [facility] Automated lymphocyte count a s percentage of total leukocytesOrdered By: Mario Mak on 12-24-2024 Lymphocytes/100 WBC Auto (Unsp spec) 17.8 % Low 19-41 [facility] Basophil percentageOrdered B y: Mario Mak on 12-24-2024 Basophils/100 WBC (Bld) 0.5 % 0-1 [facility] Bilirubin, totalOrdered By: Mario Mak on 12-24-2024 Bilirubin [Mass/Vol] 0.30 mg/dL 0.20-1.00 [facility] Comment on above: For patients on eltr ombopag therapy, use of Dimension Winner TBIL is not recommended. Blood urea nitrogen (BUN)/cr eatinine ratioOrdered By: Mario Mak on 12-24-2024 Urea nitrogen/Creatinine [Mass ratio] 30.0 mg/mg High 10-20 [facility] CBC W/Diff, Automatedon 12-15 Absolute Lymph 0.98 X10 3/uL Normal 0.83-4.51 [facility] Comment on above: Order Comment: 107.1 Performed By: #### L 503.6030, L503.0105, L506.0250, L500.4050, L100.0100, L101.9900 #### [facility] [address] [place], [address] Absolute Neut 3.8 X10 3/uL Normal 2.0-7.7 [facility] Comment on above: Order Comment: 107.1 Performed By: #### L 503.6030, L503.0105, L506.0250, L500.4050, L100.0100, L101.9900 #### [facility] [address] [place], [address] Basophils/100 WBC (Bld) 0.5 % Normal 0-1 [facility] Comment on above: Order Comment: 107.1 Performed By: #### L 503.6030, L503.0105, L506.0250, L500.4050, L100.0100, L101.9900 #### [facility] [address] [place], [address] Eosinophils/100 WBC (Bld) 5.1 % High 0-5 [facility] Comment on above: Order Comment: 107.1 Performed By: #### L 503.6030, L503.0105, L506.0250, L500.4050, L100.0100, L101.9900 #### [facility] [address] [place], [address] Erythrocyte distribution width (RBC) [Ratio] 16.8 % High 11.6-14.6 [facility] Comment on above: Order Comment: 107.1 Performed By: #### L 503.6030, L503.0105, L506.0250, L500.4050, L100.0100, L101.9900 #### [facility] [address] [place], [address] Hematocrit (Bld) [Volume fraction] 27.5 % Low 37-47 [facility] Comment on above: Order Comment: 107.1 Performed By: #### L 503.6030, L503.0105, L506.0250, L500.4050, L100.0100, L101.9900 #### [facility] [address] [place], [address] Hemoglobin (Bld) [Mass/Vol] 8.9 g/dL Low 12.0-15.0 [facility] Comment on above: Order Comment: 107.1 Performed By: #### L 503.6030, L503.0105, L506.0250, L500.4050, L100.0100, L101.9900 #### [facility] [address] [place], [address] IG% 0.900 Normal 0.0-0.9 [facility] Comment on above: Order Comment: 107.1 Result Comment: IG% - Immature Granulocytes (promyelocytes, myelocytes and metamyelocytes) > 1% indicates that a LEFT SHIFT is Present. Performed By: #### L 503.6030, L503.0105, L506.0250, L500.4050, L100.0100, L101.9900 #### [facility] [address] [place], [address] Lymphocytes/100 WBC (Bld) 17.8 % Low 19-41 [facility] Comment on above: Order Comment: 107.1 Performed By: #### L 503.6030, L503.0105, L506.0250, L500.4050, L100.0100, L101.9900 #### [facility] [address] [place], [address] MCH (RBC) [Entitic mass] 29.0 pg Normal 27.0-32.0 [facility] Comment on above: Order Comment: 107.1 Performed By: #### L 503.6030, L503.0105, L506.0250, L500.4050, L100.0100, L101.9900 #### [facility] [address] [place], [address] MCHC (RBC) [Mass/Vol] 32.4 g/dL Normal 32-36 [facility] Comment on above: Order Comment: 107.1 Performed By: #### L 503.6030, L503.0105, L506.0250, L500.4050, L100.0100, L101.9900 #### [facility] [address] [place], [address] MCV (RBC) [Entitic vol] 89.6 fL Normal 81-99 [facility] Comment on above: Order Comment: 107.1 Performed By: #### L 503.6030, L503.0105, L506.0250, L500.4050, L100.0100, L101.9900 #### [facility] [address] [place], [address] Monocytes/100 WBC (Bld) 7.3 % Normal 0-10 [facility] Comment on above: Order Comment: 107.1 Performed By: #### L 503.6030, L503.0105, L506.0250, L500.4050, L100.0100, L101.9900 #### [facility] [address] [place], [address] Neutrophils/100 WBC (Bld) 68.4 % Normal 47-70 [facility] Comment on above: Order Comment: 107.1 Performed By: #### L 503.6030, L503.0105, L506.0250, L500.4050, L100.0100, L101.9900 #### [facility] [address] [place], [address] Nucleated RBC (Bld) [#/Vol] 0 10*3/uL Normal 0-5 [facility] Comment on above: Order Comment: 107.1 Performed By: #### L 503.6030, L503.0105, L506.0250, L500.4050, L100.0100, L101.9900 #### [facility] [address] [place], [address] Platelet mean volume (Bld) [Entitic vol] 9.3 fL Normal 6.2-12.0 [facility] Comment on above: Order Comment: 107.1 Performed By: #### L 503.6030, L503.0105, L506.0250, L500.4050, L100.0100, L101.9900 #### [facility] [address] [place], [address] Platelets (Bld) [#/Vol] 309 10*3/uL Normal 150-450 [facility] Comment on above: Order Comment: 107.1 Performed By: #### L 503.6030, L503.0105, L506.0250, L500.4050, L100.0100, L101.9900 #### [facility] [address] [place], [address] RBC (Bld) [#/Vol] 3.07 10*6/uL Low 4.2-5.4 [facility] Comment on above: Order Comment: 107.1 Performed By: #### L 503.6030, L503.0105, L506.0250, L500.4050, L100.0100, L101.9900 #### [facility] [address] [place], [address] RDW SD 55.5 fl High 35.1-43.9 [facility] Comment on above: Order Comment: 107.1 Performed By: #### L 503.6030, L503.0105, L506.0250, L500.4050, L100.0100, L101.9900 #### [facility] [address] [place], [address] WBC (Bld) [#/Vol] 5.5 10*3/uL Normal 4.4-11.0 [facility] Comment on above: Order Comment: 107.1 Performed By: #### L 503.6030, L503.0105, L506.0250, L500.4050, L100.0100, L101.9900 #### [facility] [address] [place], [address] Carbon dioxide measurementOr dered By: Mario Mak on 12-24-2024 CO2 [Moles/Vol] 29.0 mmol/L 21.0-32.0 [facility] Chloride measurementOrdered By: Mario Mak on 12-24-2024 Chloride [Moles/Vol] 106 mmol/L 98-107 [facility] Comprehensive Metabolic Prof ilon 12-24-2024 Albumin [Mass/Vol] 2.0 g/dL Low 3.2-5.0 [facility] Comment on above: Order Comment: 107.1 Performed By: #### L 503.6030, L503.0105, L506.0250, L500.4050, L100.0100, L101.9900 #### [facility] [address] [place], [address] Albumin/Globulin [Mass ratio] 0.6 {ratio} Low 0.9-2.4 [facility] Comment on above: Order Comment: 107.1 Performed By: #### L 503.6030, L503.0105, L506.0250, L500.4050, L100.0100, L101.9900 #### [facility] [address] [place], [address] ALK P 108 U/L Normal 45-117 [facility] Comment on above: Order Comment: 107.1 Performed By: #### L 503.6030, L503.0105, L506.0250, L500.4050, L100.0100, L101.9900 #### [facility] [address] [place], [address] ALT [Catalytic activity/Vol] U/L Low 13-56 [facility] Comment on above: Order Comment: 107.1 Performed By: #### L 503.6030, L503.0105, L506.0250, L500.4050, L100.0100, L101.9900 #### [facility] [address] [place], [address] AST [Catalytic activity/Vol] 17 U/L Normal 15-37 [facility] Comment on above: Order Comment: 107.1 Performed By: #### L 503.6030, L503.0105, L506.0250, L500.4050, L100.0100, L101.9900 #### [facility] [address] [place], [address] Bilirubin [Mass/Vol] 0.30 mg/dL Normal 0.20-1.00 [facility] Comment on above: Order Comment: 107.1 Result Comment: For patients on eltrombopag therapy, use of Dimension Winner TBIL is not recommended. Performed By: #### L 503.6030, L503.0105, L506.0250, L500.4050, L100.0100, L101.9900 #### [facility] [address] [place], [address] BUN/CRE 30.0 RATIO High 10-20 [facility] Comment on above: Order Comment: 107.1 Performed By: #### L 503.6030, L503.0105, L506.0250, L500.4050, L100.0100, L101.9900 #### [facility] [address] [place], [address] CA,Total 8.8 mg/dL Normal 8.5-10.1 [facility] Comment on above: Order Comment: 107.1 Performed By: #### L 503.6030, L503.0105, L506.0250, L500.4050, L100.0100, L101.9900 #### [facility] [address] [place], [address] Chloride [Moles/Vol] 106 mmol/L Normal 98-107 [facility] Comment on above: Order Comment: 107.1 Performed By: #### L 503.6030, L503.0105, L506.0250, L500.4050, L100.0100, L101.9900 #### [facility] [address] [place], [address] CO2 [Moles/Vol] 29.0 mmol/L Normal 21.0-32.0 [facility] Comment on above: Order Comment: 107.1 Performed By: #### L 503.6030, L503.0105, L506.0250, L500.4050, L100.0100, L101.9900 #### [facility] [address] [place], [address] Creatinine [Mass/Vol] 0.83 mg/dL Normal 0.55-1.02 [facility] Comment on above: Order Comment: 107.1 Result Comment: The validity of the calculated GFR GFRAA in patients over 70 years has not been determined. Clinical correlation is essential. Performed By: #### L 503.6030, L503.0105, L506.0250, L500.4050, L100.0100, L101.9900 #### [facility] [address] [place], [address] EST GFR - AA 83 mL/min Normal >60 [facility] Comment on above: Order Comment: 107.1 Result Comment: Afri can Greek GFR Calc Performed By: #### L 503.6030, L503.0105, L506.0250, L500.4050, L100.0100, L101.9900 #### [facility] [address] [place], [address] GAP 7 Normal 5-15 [facility] Comment on above: Order Comment: 107.1 Performed By: #### L 503.6030, L503.0105, L506.0250, L500.4050, L100.0100, L101.9900 #### [facility] [address] [place], [address] GFR/1.73 sq M.predicted among non-blacks MDRD (S/P/Bld) [Vol rate/Area] 68 mL/min/{1.73_m2} Normal >60 [facility] Comment on above: Order Comment: 107.1 Result Comment: Non- GFR Calc Performed By: #### L 503.6030, L503.0105, L506.0250, L500.4050, L100.0100, L101.9900 #### [facility] [address] [place], [address] Globulin (S) [Mass/Vol] 3.4 g/dL Normal 2.2-4.2 [facility] Comment on above: Order Comment: 107.1 Performed By: #### L 503.6030, L503.0105, L506.0250, L500.4050, L100.0100, L101.9900 #### [facility] [address] [place], [address] Glucose [Mass/Vol] 76 mg/dL Normal 74-106 [facility] Comment on above: Order Comment: 107.1 Performed By: #### L 503.6030, L503.0105, L506.0250, L500.4050, L100.0100, L101.9900 #### [facility] [address] [place], [address] Potassium [Moles/Vol] 4.0 mmol/L Normal 3.5-5.1 [facility] Comment on above: Order Comment: 107.1 Performed By: #### L 503.6030, L503.0105, L506.0250, L500.4050, L100.0100, L101.9900 #### [facility] [address] [place], [address] Sodium [Moles/Vol] 141 mmol/L Normal 136-145 [facility] Comment on above: Order Comment: 107.1 Performed By: #### L 503.6030, L503.0105, L506.0250, L500.4050, L100.0100, L101.9900 #### [facility] [address] [place], [place], [id number] T PROT 5.4 g/dL Low 6.4-8.2 [facility] Comment on above: Order Comment: 107.1 Performed By: #### L 503.6030, L503.0105, L506.0250, L500.4050, L100.0100, L101.9900 #### [facility] [address] [place], [place], [id number] Urea nitrogen [Mass/Vol] 25 mg/dL High 7-18 [facility] Comment on above: Order Comment: 107.1 Performed By: #### L 503.6030, L503.0105, L506.0250, L500.4050, L100.0100, L101.9900 #### [facility] [address] [place], [place], [id number] Eosinophil percentageOrdered By: Mario Mak on 12-24-2024 Eosinophils/100 WBC (Bld) 5.1 % High 0-5 [facility] Erythrocyte Sed Rateon 12-24 SED RATE 38 mm/hr High 0-30 [facility] Comment on above: Order Comment: 107.1 Performed By: #### L 503.6030, L503.0105, L506.0250, L500.4050, L100.0100, L101.9900 #### [facility] [address] [place], [place], [id number] Erythrocyte distribution wid th (RBC) [Ratio]Ordered By: Mario Mak on 12-24-2024 Erythrocyte distribution width (RBC) [Entitic vol] 55.5 fL High 35.1-43.9 [facility] Erythrocyte distribution wid th ratioOrdered By: Mario Mak on 12-24-2024 Erythrocyte distribution width (RBC) [Ratio] 16.8 % High 11.6-14.6 [facility] Erythrocyte distribution wid th standard deviationOrdered By: Mario Mak on 12-24-2024 Erythrocyte distribution width (RBC) [Ratio] 55.5 fl High 35.1-43.9 [facility] Erythrocyte sedimentation ra teOrdered By: Mario Mak on 12-24-2024 ESR (Bld) [Velocity] 38 mm/h High 0-30 [facility] Estimated glomerular filtrat ion rate (GFR) AmericanOrdered By: Mario Mak on 12-24-2024 Estimated GFR (MDRD) Amer 83 mL/min >60 [facility] Comment on above: GFR Calc Folates, (Folic Acid)on 12-15 FOLATES 6.70 ng/mL Normal 3.1-55.4 [facility] Comment on above: Order Comment: 107.1 N Performed By: #### L 503.6030, L503.0105, L506.0250, L500.4050, L100.0100, L101.9900 #### [facility] [place], [address] Folic acid measurementOrdere d By: Mario Mak on 12-24-2024 Folate 6.70 ng/mL 3.1-55.4 [facility] Glomerular filtration rate ( GFR) estimationOrdered By: Mario Mak on 12-24-2024 Estimated GFR (MDRD) Non-Af Amer 68 mL/min >60 [facility] Comment on above: Non- GFR Calc GFR/1.73 sq M.predicted among non-blacks MDRD (S/P/Bld) [Vol rate/Area] 68 mL/min/{1.73_m2} >60 [facility] Comment on above: Non- GFR Calc Glucose measurementOrdered B y: Mario Mak on 12-24-2024 Glucose [Mass/Vol] 76 mg/dL 74-106 [facility] Hematocrit Auto (Bld) [Volum e fraction]Ordered By: Mario Mak on 12-24-2024 Hematocrit (Bld) [Volume fraction] 27.5 % Low 37-47 [facility] Hemoglobin measurementOrdere d By: Mario Mak on 12-24-2024 Hemoglobin (Bld) [Mass/Vol] 8.9 g/dL Low 12.0-15.0 [facility] Immature granulocytes/100 WB C Auto (Bld)Ordered By: Mario Mak on 12-24-2024 Immature granulocytes/100 WBC (Bld) 0.900 % 0.0-0.9 [facility] Comment on above: IG% - Immature Granu locytes (promyelocytes, myelocytes and metamyelocytes) > 1% indicates that a LEFT SHIFT is Present. Iron (Unsp spec) [Mass/Mass] Ordered By: Mario Mak on 12-24-2024 Iron [Mass/Vol] 58 ug/dL 50-170 [facility] Iron measurement (mass/mass) Ordered By: Mario Mak on 12-24-2024 Iron (Unsp spec) [Mass/Mass] 58 ug/dL 50-170 [facility] Iron saturation [Mass fracti on]Ordered By: Mario Mak on 12-24-2024 Iron Saturation 35.4 % 15.0-55.0 [facility] Iron+Iron Binding Capacityon 12-24-2024 Iron [Mass/Vol] 58 ug/dL Normal 50-170 [facility] Comment on above: Order Comment: 107.1 Performed By: #### L 503.6030, L503.0105, L506.0250, L500.4050, L100.0100, L101.9900 #### [facility] [address] [facility] [place], [place], [id number] ([address] IRON SATURATION 35.4 Normal 15.0-55.0 [facility] Comment on above: Order Comment: 107.1 Performed By: #### L 503.6030, L503.0105, L506.0250, L500.4050, L100.0100, L101.9900 #### [facility] [address] [place], [address] TIBC 164 ug/dL Low 250-450 [facility] Comment on above: Order Comment: 107.1 Performed By: #### L 503.6030, L503.0105, L506.0250, L500.4050, L100.0100, L101.9900 #### [facility] [place] [address] [place], [address] Laboratory - Chemistry and C hemistry - challengeOrdered By: Mario Mak on 12-24-2024 AST [Catalytic activity/Vol] 17 U/L 15-37 [facility] Lymphocytes Auto (Unsp spec) [#/Vol]Ordered By: Mario Mak on 12-24-2024 Lymphocytes (Bld) [#/Vol] 0.98 10*3/uL 0.83-4.51 [facility] Lymphocytes/100 WBC Auto (Un sp spec)Ordered By: Mario Mak on 12-24-2024 Lymphocytes/100 WBC (Bld) 17.8 % Low 19-41 [facility] MCV (mean corpuscular volume ) determinationOrdered By: Mario Mak on 12-24-2024 MCV (RBC) [Entitic vol] 89.6 fL 81-99 [facility] Mean corpuscular hemoglobin (MCH) determinationOrdered By: Mario Mak on 12-24-2024 MCH (RBC) [Entitic mass] 29.0 pg 27.0-32.0 [facility] Mean corpuscular hemoglobin concentration (MCHC) determinationOrdered By: Mario Mak on 12-24-2024 MCHC (RBC) [Mass/Vol] 32.4 g/dL 32-36 [facility] Mean platelet volume determi nationOrdered By: Mario Mak on 12-24-2024 Platelet mean volume (Bld) [Entitic vol] 9.3 fL 6.2-12.0 [facility] Monocyte percentageOrdered B y: Mario Mak on 12-24-2024 Monocytes/100 WBC (Bld) 7.3 % 0-10 [facility] Neutrophil percentageOrdered By: Mario Mak on 12-24-2024 Neutrophils/100 WBC (Bld) 68.4 % 47-70 [facility] Nucleated red blood cell per centageOrdered By: Mario Mak on 12-24-2024 Nucleated RBC/100 WBC (Bld) [Ratio] 0 % 0-5 [facility] Platelet countOrdered By: Moreno on 12-24-2024 Platelets (Bld) [#/Vol] 309 10*3/uL 150-450 [facility] Potassium measurementOrdered By: Mario Mak on 12-24-2024 Potassium [Moles/Vol] 4.0 mmol/L 3.5-5.1 [facility] RBC Auto (Bld) [#/Vol]Ordere d By: Mario Mak on 12-24-2024 RBC (Bld) [#/Vol] 3.07 10*6/uL Low 4.2-5.4 [facility] Serum anion gap measurementO rdered By: Mario Mak on 12-24-2024 Anion gap [Moles/Vol] 7 mmol/L 5-15 [facility] Serum globulin measurementOr dered By: Mario Mak on 12-24-2024 Globulin (S) [Mass/Vol] 3.4 g/dL 2.2-4.2 [facility] Serum or plasma alanine melara otransferase (ALT) measurementOrdered By: Mario Mak on 12-24-2024 ALT [Catalytic activity/Vol] U/L Low 13-56 [facility] Serum or plasma albumin roma urement (mass/volume)Ordered By: Mario Mak on 12-24-2024 Albumin [Mass/Vol] 2.0 g/dL Low 3.2-5.0 [facility] Serum or plasma alkaline krystal sphatase measurementOrdered By: Mraio Mak on 12-24-2024 ALP [Catalytic activity/Vol] 108 U/L 45-117 [facility] Serum or plasma calcium roma urement (mass/volume)Ordered By: Mario Mak on 12-24-2024 Calcium [Mass/Vol] 8.8 mg/dL 8.5-10.1 [facility] Serum or plasma creatinine m easurement (mass/volume)Ordered By: Mario Mak on 12-24-2024 Creatinine [Mass/Vol] 0.83 mg/dL 0.55-1.02 [facility] Comment on above: The validity of the calculated GFR & GFRAA in patients over 70 years has not been determined. Clinical correlation is essential. Serum or plasma iron saturat ion measurement (mass fraction)Ordered By: Mario Mak on 12-24-2024 Iron saturation [Mass fraction] 35.4 % 15.0-55.0 [facility] Serum or plasma urea nitroge n measurement (mass/volume)Ordered By: Mario Mak on 12-24-2024 Urea nitrogen [Mass/Vol] 25 mg/dL High 7-18 [facility] Sodium levelOrdered By: Mario Mak on 12-24-2024 Sodium [Moles/Vol] 141 mmol/L 136-145 [facility] TIBCOrdered By: Mario Mak on 12-24-2024 Total Iron Binding Capacity 164 ug/dL Low 250-450 [facility] Total proteinOrdered By: Shwetha Mak on 12-24-2024 Protein [Mass/Vol] 5.4 g/dL Low 6.4-8.2 [facility] Vitamin B12on 12-24-2024 Cobalamin (Vitamin B12) [Mass/Vol] 407 pg/mL Normal 211-911 [facility] Comment on above: Order Comment: 107.1 Performed By: #### L 503.6030, L503.0105, L506.0250, L500.4050, L100.0100, L101.9900 #### [facility] [address] [facility] [place], [address] Vitamin B12 measurementOrder ed By: Mario Mak on 12-24-2024 Cobalamin (Vitamin B12) [Mass/Vol] 407 pg/mL 211-911 [facility] White blood cell (WBC) count Ordered By: Mario Mak on 12-24-2024 WBC (Bld) [#/Vol] 5.5 10*3/uL 4.4-11.0 [facility] Albumin to globulin ratioOrd ered By: Mario Mak on 12-17-2024 Albumin/Globulin [Mass ratio] 0.6 {ratio} Low 0.9-2.4 [facility] Bilirubin, totalOrdered By: Mario Mak on 12-17-2024 Bilirubin [Mass/Vol] 0.30 mg/dL 0.20-1.00 [facility] Comment on above: For patients on eltr ombopag therapy, use of Dimension Winner TBIL is not recommended. Blood urea nitrogen (BUN)/cr eatinine ratioOrdered By: Mario Mak on 12-17-2024 Urea nitrogen/Creatinine [Mass ratio] 38.9 mg/mg High 10-20 [facility] CBC-Complete Blood Cnt No Di ffon 12-17-2024 Erythrocyte distribution width (RBC) [Ratio] 17.8 % High 11.6-14.6 [facility] Comment on above: Order Comment: 107.1 Performed By: #### L 101.9900, L100.0500, L500.4050 #### [facility] [address] [place], [address] Hematocrit (Bld) [Volume fraction] 24.9 % Low 37-47 [facility] Comment on above: Order Comment: 107.1 Performed By: #### L 101.9900, L100.0500, L500.4050 #### [facility] [address] [place], [address] Hemoglobin (Bld) [Mass/Vol] 7.7 g/dL Low 12.0-15.0 [facility] Comment on above: Order Comment: 107.1 Performed By: #### L 101.9900, L100.0500, L500.4050 #### [facility] [address] [place], [address] MCH (RBC) [Entitic mass] 28.3 pg Normal 27.0-32.0 [facility] Comment on above: Order Comment: 107.1 Performed By: #### L 101.9900, L100.0500, L500.4050 #### [facility] [address] [place], [address] MCHC (RBC) [Mass/Vol] 30.9 g/dL Low 32-36 [facility] Comment on above: Order Comment: 107.1 Performed By: #### L 101.9900, L100.0500, L500.4050 #### [facility] [address] [place], [address] MCV (RBC) [Entitic vol] 91.5 fL Normal 81-99 [facility] Comment on above: Order Comment: 107.1 Performed By: #### L 101.9900, L100.0500, L500.4050 #### [facility] [address] [place], [address] Platelet mean volume (Bld) [Entitic vol] 8.7 fL Normal 6.2-12.0 [facility] Comment on above: Order Comment: 107.1 Performed By: #### L 101.9900, L100.0500, L500.4050 #### [facility] [address] [place], [address] Platelets (Bld) [#/Vol] 391 10*3/uL Normal 150-450 [facility] Comment on above: Order Comment: 107.1 Performed By: #### L 101.9900, L100.0500, L500.4050 #### [facility] [address] [place], [address] RBC (Bld) [#/Vol] 2.72 10*6/uL Low 4.2-5.4 [facility] Comment on above: Order Comment: 107.1 Performed By: #### L 101.9900, L100.0500, L500.4050 #### [facility] [address] [place], [address] RDW SD 59.4 fl High 35.1-43.9 [facility] Comment on above: Order Comment: 107.1 Performed By: #### L 101.9900, L100.0500, L500.4050 #### [facility] [address] [place], [address] WBC (Bld) [#/Vol] 7.6 10*3/uL Normal 4.4-11.0 [facility] Comment on above: Order Comment: 107.1 Performed By: #### L 101.9900, L100.0500, L500.4050 #### [facility] [address] [place], [address] Carbon dioxide measurementOr dered By: Mario Mak on 12-17-2024 CO2 [Moles/Vol] 25.0 mmol/L 21.0-32.0 [facility] Chloride measurementOrdered By: Mario Mak on 12-17-2024 Chloride [Moles/Vol] 104 mmol/L 98-107 [facility] Comprehensive Metabolic Prof ilon 12-17-2024 Albumin [Mass/Vol] 1.9 g/dL Low 3.2-5.0 [facility] Comment on above: Order Comment: 107.1 Performed By: #### L 101.9900, L100.0500, L500.4050 #### [facility] [address] [place], [address] Albumin/Globulin [Mass ratio] 0.6 {ratio} Low 0.9-2.4 [facility] Comment on above: Order Comment: 107.1 Performed By: #### L 101.9900, L100.0500, L500.4050 #### [facility] [address] [place], [address] ALK P 96 U/L Normal 45-117 [facility] Comment on above: Order Comment: 107.1 Performed By: #### L 101.9900, L100.0500, L500.4050 #### [facility] [address] [place], [address] ALT [Catalytic activity/Vol] 9 U/L Low 13-56 [facility] Comment on above: Order Comment: 107.1 Performed By: #### L 101.9900, L100.0500, L500.4050 #### [facility] [address] [place], [address] AST [Catalytic activity/Vol] 26 U/L Normal 15-37 [facility] Comment on above: Order Comment: 107.1 Performed By: #### L 101.9900, L100.0500, L500.4050 #### [facility] [address] [place], [address] Bilirubin [Mass/Vol] 0.30 mg/dL Normal 0.20-1.00 [facility] Comment on above: Order Comment: 107.1 Result Comment: For patients on eltrombopag therapy, use of Dimension Winner TBIL is not recommended. Performed By: #### L 101.9900, L100.0500, L500.4050 #### [facility] [address] [place], [address] BUN/CRE 38.9 RATIO High 10-20 [facility] Comment on above: Order Comment: 107.1 Performed By: #### L 101.9900, L100.0500, L500.4050 #### [facility] [address] [place], [address] CA,Total 8.4 mg/dL Low 8.5-10.1 [facility] Comment on above: Order Comment: 107.1 Performed By: #### L 101.9900, L100.0500, L500.4050 #### [facility] [address] [place], [address] Chloride [Moles/Vol] 104 mmol/L Normal 98-107 [facility] Comment on above: Order Comment: 107.1 Performed By: #### L 101.9900, L100.0500, L500.4050 #### [facility] [address] [place], [address] CO2 [Moles/Vol] 25.0 mmol/L Normal 21.0-32.0 [facility] Comment on above: Order Comment: 107.1 Performed By: #### L 101.9900, L100.0500, L500.4050 #### [facility] [address] [place], [address] Creatinine [Mass/Vol] 0.77 mg/dL Normal 0.55-1.02 [facility] Comment on above: Order Comment: 107.1 Result Comment: The validity of the calculated GFR GFRAA in patients over 70 years has not been determined. Clinical correlation is essential. Performed By: #### L 101.9900, L100.0500, L500.4050 #### [facility] [address] [place], [address] EST GFR - AA 91 mL/min Normal >60 [facility] Comment on above: Order Comment: 107.1 Result Comment: Afri can Greek GFR Calc Performed By: #### L 101.9900, L100.0500, L500.4050 #### [facility] [address] [place], [address] GAP 8 Normal 5-15 [facility] Comment on above: Order Comment: 107.1 Performed By: #### L 101.9900, L100.0500, L500.4050 #### [facility] [address] [place], [address] GFR/1.73 sq M.predicted among non-blacks MDRD (S/P/Bld) [Vol rate/Area] 75 mL/min/{1.73_m2} Normal >60 [facility] Comment on above: Order Comment: 107.1 Result Comment: Non- GFR Calc Performed By: #### L 101.9900, L100.0500, L500.4050 #### [facility] [address] [place], [address] Globulin (S) [Mass/Vol] 3.2 g/dL Normal 2.2-4.2 [facility] Comment on above: Order Comment: 107.1 Performed By: #### L 101.9900, L100.0500, L500.4050 #### [facility] [address] [place], [address] Glucose [Mass/Vol] 203 mg/dL High 74-106 [facility] Comment on above: Order Comment: 107.1 Result Comment: Gluc ose result greater than or equal to 200 mg/dL suggests DIABETES MELLITUS per A.D.A. criteria. Performed By: #### L 101.9900, L100.0500, L500.4050 #### [facility] [address] [place], [address] Potassium [Moles/Vol] 4.2 mmol/L Normal 3.5-5.1 [facility] Comment on above: Order Comment: 107.1 Performed By: #### L 101.9900, L100.0500, L500.4050 #### [facility] [address] [place], [address] Sodium [Moles/Vol] 137 mmol/L Normal 136-145 [facility] Comment on above: Order Comment: 107.1 Performed By: #### L 101.9900, L100.0500, L500.4050 #### [facility] [address] [place], [address] T PROT 5.1 g/dL Low 6.4-8.2 [facility] Comment on above: Order Comment: 107.1 Performed By: #### L 101.9900, L100.0500, L500.4050 #### [facility] [address] [place], [address] Urea nitrogen [Mass/Vol] 30 mg/dL High 7-18 [facility] Comment on above: Order Comment: 107.1 Performed By: #### L 101.9900, L100.0500, L500.4050 #### [facility] [address] [place], [place], [address] Erythrocyte Sed Rateon 12-17 SED RATE 24 mm/hr Normal 0-30 [facility] Comment on above: Order Comment: 107.1 Performed By: #### L 101.9900, L100.0500, L500.4050 #### [facility] [address] [place], [address] Erythrocyte distribution wid th (RBC) [Ratio]Ordered By: Mario Mak on 12-17-2024 Erythrocyte distribution width (RBC) [Entitic vol] 59.4 fL High 35.1-43.9 [facility] Erythrocyte distribution wid th ratioOrdered By: Mario Mak on 12-17-2024 Erythrocyte distribution width (RBC) [Ratio] 17.8 % High 11.6-14.6 [facility] Erythrocyte distribution wid th standard deviationOrdered By: Mario Mak on 12-17-2024 Erythrocyte distribution width (RBC) [Ratio] 59.4 fl High 35.1-43.9 [facility] Erythrocyte sedimentation ra teOrdered By: Mario Mak on 12-17-2024 ESR (Bld) [Velocity] 24 mm/h 0-30 [facility] Estimated glomerular filtrat ion rate (GFR) AmericanOrdered By: Mario Mak on 12-17-2024 Estimated GFR (MDRD) Amer 91 mL/min >60 [facility] Comment on above: GFR Calc Glomerular filtration rate ( GFR) estimationOrdered By: Mario Mak on 12-17-2024 Estimated GFR (MDRD) Non-Af Amer 75 mL/min >60 [facility] Comment on above: Non- GFR Calc GFR/1.73 sq M.predicted among non-blacks MDRD (S/P/Bld) [Vol rate/Area] 75 mL/min/{1.73_m2} >60 [facility] Comment on above: Non- GFR Calc Glucose measurementOrdered B y: Mario Mak on 12-17-2024 Glucose [Mass/Vol] 203 mg/dL High 74-106 [facility] Comment on above: Glucose result great er than or equal to 200 mg/dLsuggests DIABETES MELLITUS per A.D.A. criteria. Hematocrit Auto (Bld) [Volum e fraction]Ordered By: Mario Mak on 12-17-2024 Hematocrit (Bld) [Volume fraction] 24.9 % Low 37-47 [facility] Hemoglobin measurementOrdere d By: Mario Mak on 12-17-2024 Hemoglobin (Bld) [Mass/Vol] 7.7 g/dL Low 12.0-15.0 [facility] - Chemistry and C hemistry - challengeOrdered By: Mario Mak on 12-17-2024 AST [Catalytic activity/Vol] 26 U/L 15-37 [facility] MCV (mean corpuscular volume ) determinationOrdered By: Mario Mak on 12-17-2024 MCV (RBC) [Entitic vol] 91.5 fL 81-99 [facility] Mean corpuscular hemoglobin (MCH) determinationOrdered By: Mario Mak on 12-17-2024 MCH (RBC) [Entitic mass] 28.3 pg 27.0-32.0 [facility] Mean corpuscular hemoglobin concentration (MCHC) determinationOrdered By: Mario Mak on 12-17-2024 MCHC (RBC) [Mass/Vol] 30.9 g/dL Low 32-36 [facility] Mean platelet volume determi nationOrdered By: Mario Mak on 12-17-2024 Platelet mean volume (Bld) [Entitic vol] 8.7 fL 6.2-12.0 [facility] Platelet countOrdered By: Moreno on 12-17-2024 Platelets (Bld) [#/Vol] 391 10*3/uL 150-450 [facility] Potassium measurementOrdered By: Mario Mak on 12-17-2024 Potassium [Moles/Vol] 4.2 mmol/L 3.5-5.1 [facility] RBC Auto (Bld) [#/Vol]Ordere d By: Mario Mak on 02-03-2025 RBC (Bld) [#/Vol] 2.72 10*6/uL Low 4.2-5.4 [facility] Serum anion gap measurementO rdered By: Mario Mak on 12-17-2024 Anion gap [Moles/Vol] 8 mmol/L 5-15 [facility] Serum globulin measurementOr dered By: Mario Mak on 12-17-2024 Globulin (S) [Mass/Vol] 3.2 g/dL 2.2-4.2 [facility] Serum or plasma alanine melara otransferase (ALT) measurementOrdered By: Mario Mak on 12-17-2024 ALT [Catalytic activity/Vol] 9 U/L Low 13-56 [facility] Serum or plasma albumin roma urement (mass/volume)Ordered By: Mario Mak on 12-17-2024 Albumin [Mass/Vol] 1.9 g/dL Low 3.2-5.0 [facility] Serum or plasma alkaline krystal sphatase measurementOrdered By: Mario Mak on 12-17-2024 ALP [Catalytic activity/Vol] 96 U/L 45-117 [facility] Serum or plasma calcium roma urement (mass/volume)Ordered By: Mario Mak on 12-17-2024 Calcium [Mass/Vol] 8.4 mg/dL Low 8.5-10.1 [facility] Serum or plasma creatinine m easurement (mass/volume)Ordered By: Mario Mak on 12-17-2024 Creatinine [Mass/Vol] 0.77 mg/dL 0.55-1.02 [facility] Comment on above: The validity of the calculated GFR & GFRAA in patients over 70 years has not been determined. Clinical correlation is essential. Serum or plasma urea nitroge n measurement (mass/volume)Ordered By: Mario Mak on 12-17-2024 Urea nitrogen [Mass/Vol] 30 mg/dL High 7-18 [facility] Sodium levelOrdered By: Mario Mak on 12-17-2024 Sodium [Moles/Vol] 137 mmol/L 136-145 [facility] Total proteinOrdered By: Shwetha Mak on 12-17-2024 Protein [Mass/Vol] 5.1 g/dL Low 6.4-8.2 [facility] White blood cell (WBC) count Ordered By: Mario Mak on 12-17-2024 WBC (Bld) [#/Vol] 7.6 10*3/uL 4.4-11.0 [facility] ANES POSTPROC EVALon 025 ANES POSTPROC EVAL Normal [facility] ANES PRE-OPon 12-12-2024 ANES PRE-OP Normal [facility] BRIEF OP NOTon 12-12-2024 BRIEF OP NOT Normal [facility] Basic metabolic 2000 panelon 12-12-2024 Anion gap [Moles/Vol] 9 mmol/L Normal 8-15 [facility] Comment on above: Order Comment: Speci men Type: BLOOD SPECIMENOrdering Facility: [facility] Address: [address] [place] [address] Performed By: #### 2 4321-2 ####[facility] LABORATORYCLIA [id number] [place] [address] [place] Calcium [Mass/Vol] 8.9 mg/dL Normal 8.5-10.2 [facility] Comment on above: Order Comment: Speci men Type: BLOOD SPECIMENOrdering Facility: [facility] Address: [address] [place] [address] Performed By: #### 2 4321-2 ####V[facility] LABORATORYCLIA [id number] [place] [address] [place] Chloride [Moles/Vol] 104 mmol/L Normal 98-[address] [facility] Comment on above: Order Comment: Speci men Type: BLOOD SPECIMENOrdering Facility: [facility] Address: [address] [place] [address] Performed By: #### 2 4321-2 ####[facility]AR[facility] LABORATORYCLIA [id number] [place] [address] [place] CO2 [Moles/Vol] 24 mmol/L Normal 22-30 [facility] Comment on above: Order Comment: Speci men Type: BLOOD SPECIMENOrdering Facility: [facility] Address: [address] [place] [address] Performed By: #### 2 4321-2 ####[facility] LABORATORYCLIA [id number] [address] [place] Creatinine [Mass/Vol] 0.74 mg/dL Normal 0.58-0.96 [facility] Comment on above: Order Comment: Fan meade Type: BLOOD SPECIMENOrdering Facility: [facility] Address: [address] [place] [address] Performed By: #### 2 4321-2 ####[facility] LABORATORYCLIA [id number] [address] Creatinine and Glomerular filtration rate.predicted panel (S/P/Bld) 78 mL/min/1.73m??? Normal >=60 [facility] Comment on above: Order Comment: Fan meade Type: BLOOD SPECIMENOrdering Facility: [facility] Address: [address] [place] [address] Result Comment: Hilda mated Glomerular Filtration Rate (eGFR) is calculated using the 2020 CKD-EPI creatinine equation. This equation utilizes serum creatinine, sex, and age as parameters. The creatinine assay has traceable calibration to isotope dilution-mass spectrometry. Refer to KDIGO guidelines for clinical interpretation. In patients with unstable renal function, e.g. those with acute kidney injury, the eGFR may not accurately reflect actual GFR. Performed By: #### 2 4321-2 ####VILLARRE[facility] LABORATORYCLIA [id number] [address] STATES [facility] Glucose [Mass/Vol] 139 mg/dL High 74-99 [facility] Comment on above: Order Comment: Fan meade Type: BLOOD SPECIMENOrdering Facility: [facility] Address: [address] [place] [address] Result Comment: The [place] Diabetes Association (ADA) provides guidance for cutoff values for fasting glucose and random glucose. The ADA defines fasting as no caloric intake for at least 8 hours. Fasting plasma glucose results between 100 to 125 mg/dL indicate increased risk for diabetes (prediabetes).Fasting plasma glucose results greater than or equal to 126 mg/dL meet the criteria for diagnosis of diabetes. In the absence of unequivocal hyperglycemia, results should be confirmed by repeat testing. In a patient with classic symptoms of hyperglycemia or hyperglycemic crisis, random plasma glucose results greater than or equal to 200 mg/dL meet the criteria for diagnosis of diabetes.Reference: Standards of Medical Care in Diabetes 2016, [place] [employer] Association. Diabetes Care. 2016.39(Suppl 1). Performed By: #### 2 4321-2 ####VILLARRE[facility] LABORATORYCLIA [id number] [address] [place] Potassium [Moles/Vol] 3.8 mmol/L Normal 3.7-5.1 [facility] Comment on above: Order Comment: Speci men Type: BLOOD SPECIMENOrdering Facility: [facility] Address: [address] [place] [address] Performed By: #### 2 4321-2 ####VILLARRE[facility] LABORATORYCLIA [id number] [address] [place] Sodium [Moles/Vol] 137 mmol/L Normal 136-144 [facility] Comment on above: Order Comment: Speci men Type: BLOOD SPECIMENOrdering Facility: [facility] Address: [address] [place] [address] Performed By: #### 2 4321-2 ####VILLARRE[facility] LABORATORYCLIA [id number] [place] [address] [place] Urea nitrogen [Mass/Vol] 24 mg/dL High 7-21 [facility] Comment on above: Order Comment: Katei men Type: BLOOD SPECIMENOrdering Facility: [facility] Address: [address] [place] [address] Performed By: #### 2 4321-2 ####[facility] LABORATORYCLIA [id number] [address] [place] CASE MANAGEMon 12-12-2024 CASE MANAGEM Normal [facility] CASE MANAGEM Normal [facility] CBC W Auto Differential pane l (Bld)on 12-12-2024 Basophils (Bld) [#/Vol] 0.03 10*3/uL Normal <0.11 [facility] Comment on above: Order Comment: Speci men Type: BLOOD SPECIMENOrdering Facility: [facility] Address: [address] [place] [address] Performed By: #### 5 7021-8 ####[facility] LABORATORYCLIA [id number] [place] [address] [place] Basophils/100 WBC (Bld) 0.3 % Normal [facility] Comment on above: Order Comment: Speci men Type: BLOOD SPECIMENOrdering Facility: [facility] Address: [address] [place] [address] Performed By: #### 5 7021-8 ####VILLARRE[facility] LABORATORYCLIA [id number] [place] [address] [facility] [place] Differential cell count method Nom (Bld) Auto Normal [facility] Comment on above: Order Comment: Speci men Type: BLOOD SPECIMENOrdering Facility: [facility] Address: [address] [place] [address] Performed By: #### 5 7021-8 ####VILLAR[facility] LABORATORYCLIA [id number] [place] [address] [place] Eosinophils (Bld) [#/Vol] 0.15 10*3/uL Normal <0.46 [facility] Comment on above: Order Comment: Speci men Type: BLOOD SPECIMENOrdering Facility: [facility] Address: [address] [place] [address] Performed By: #### 5 7021-8 ####VILL[facility] LABORATORYCLIA [id number] [address] Eosinophils/100 WBC (Bld) 1.7 % Normal [facility] Comment on above: Order Comment: Speci men Type: BLOOD SPECIMENOrdering Facility: [facility] Address: [address] [place] [address] Performed By: #### 5 7021-8 ####[facility] LABORATORYCLIA [id number] [address] [place] Erythrocyte distribution width (RBC) [Ratio] 16.7 % High 11.5-15.0 [facility] Comment on above: Order Comment: Speci men Type: BLOOD SPECIMENOrdering Facility: [facility] Address: [address] [place] [address] Performed By: #### 5 7021-8 ####V[facility] LABORATORYCLIA [id number] [address] [place] Hematocrit (Bld) [Volume fraction] 24.4 % Low 36.0-46.0 [facility] Comment on above: Order Comment: Speci men Type: BLOOD SPECIMENOrdering Facility: [facility] Address: [address] [place] [address] Performed By: #### 5 7021-8 ####V[facility] LABORATORYCLIA [id number] [address] [place] Hemoglobin (Bld) [Mass/Vol] 7.8 g/dL Low 11.5-15.5 [facility] Comment on above: Order Comment: Speci men Type: BLOOD SPECIMENOrdering Facility: [facility] Address: [address] [place] [address] Performed By: #### 5 7021-8 ####V[facility] LABORATORYCLIA [id number] [address] [place] Immature granulocytes (Bld) [#/Vol] 0.10 10*3/uL High <0.10 [facility] Comment on above: Order Comment: Speci men Type: BLOOD SPECIMENOrdering Facility: [facility] Address: [address] [place] [address] Performed By: #### 5 7021-8 ####V[facility] LABORATORYCLIA [id number] [address] [place] Immature granulocytes/100 WBC (Bld) 1.2 % Normal [facility] Comment on above: Order Comment: Speci men Type: BLOOD SPECIMENOrdering Facility: [facility] Address: [address] [place] [address] Performed By: #### 5 7021-8 ####V[facility] LABORATORYCLIA [id number] [place] [address] [place] Lymphocytes (Bld) [#/Vol] 1.19 10*3/uL Normal 1.00-4.00 [facility] Comment on above: Order Comment: Speci men Type: BLOOD SPECIMENOrdering Facility: [facility] Address: [address] [place] [address] Performed By: #### 5 7021-8 ####V[facility] LABORATORYCLIA [id number] [address] [place] [facility] Lymphocytes/100 WBC (Bld) 13.7 % Normal [facility] Comment on above: Order Comment: Speci men Type: BLOOD SPECIMENOrdering Facility: [facility] Address: [address] [place] [address] Performed By: #### 5 7021-8 ####V[facility] LABORATORYCLIA [id number] [place] [address] [place] MCH (RBC) [Entitic mass] 28.1 pg Normal 26.0-34.0 [facility] Comment on above: Order Comment: Speci men Type: BLOOD SPECIMENOrdering Facility: [facility] Address: [address] [place] [address] Performed By: #### 5 7021-8 ####[facility] LABORATORYCLIA [id number] [address] [place] MCHC (RBC) [Mass/Vol] 32.0 g/dL Normal 30.5-36.0 [facility] Comment on above: Order Comment: Speci men Type: BLOOD SPECIMENOrdering Facility: [facility] Address: [address] [place] [address] Performed By: #### 5 7021-8 ####V[facility] LABORATORYCLIA [id number] [address] MCV (RBC) [Entitic vol] 87.8 fL Normal 80.0-100.0 [facility] Comment on above: Order Comment: Speci men Type: BLOOD SPECIMENOrdering Facility: [facility] Address: [address] [place] [address] Performed By: #### 5 7021-8 ####VILL[facility] LABORATORYCLIA [id number] [address] [place] Monocytes (Bld) [#/Vol] 0.66 10*3/uL Normal <0.87 [facility] Comment on above: Order Comment: Speci men Type: BLOOD SPECIMENOrdering Facility: [facility] Address: [address] [place] [address] Performed By: #### 5 7021-8 ####V[facility] LABORATORYCLIA [id number] [place] [address] [place] Monocytes/100 WBC (Bld) 7.6 % Normal [facility] Comment on above: Order Comment: Speci men Type: BLOOD SPECIMENOrdering Facility: [facility] Address: [address] [place] [address] Performed By: #### 5 7021-8 ####V[facility] LABORATORYCLIA [id number] [place] [address] [place] Neutrophils (Bld) [#/Vol] 6.54 10*3/uL Normal 1.45-7.50 [facility] Comment on above: Order Comment: Speci men Type: BLOOD SPECIMENOrdering Facility: [facility] Address: [address] [place] [address] Performed By: #### 5 7021-8 ####V[facility] LABORATORYCLIA [id number] [address] [place] Neutrophils/100 WBC (Bld) 75.5 % Normal [facility] Comment on above: Order Comment: Speci men Type: BLOOD SPECIMENOrdering Facility: [facility] Address: [address] [place] [address] Performed By: #### 5 7021-8 ####V[facility] LABORATORYCLIA [id number] [place] [address] [place] Nucleated RBC (Bld) [#/Vol] 10*3/uL Normal <0.01 [facility] Comment on above: Order Comment: Speci men Type: BLOOD SPECIMENOrdering Facility: [facility] Address: [address] [place] [address] Performed By: #### 5 7021-8 ####V[facility] LABORATORYCLIA [id number] [place] [address] [place] Nucleated RBC/100 WBC (Bld) [Ratio] 0.0 /100 WBC Normal [facility] Comment on above: Order Comment: Speci men Type: BLOOD SPECIMENOrdering Facility: [facility] Address: [address] [place] [address] Performed By: #### 5 7021-8 ####VILL[facility] LABORATORYCLIA [id number] [address] [place] Platelet mean volume (Bld) [Entitic vol] 8.0 fL Low 9.0-12.7 [facility] Comment on above: Order Comment: Speci men Type: BLOOD SPECIMENOrdering Facility: [facility] Address: [address] [place] [address] Performed By: #### 5 7021-8 ####V[facility] LABORATORYCLIA [id number] [place] [address] [facility] [place] Platelets (Bld) [#/Vol] 571 10*3/uL High 150-400 [facility] Comment on above: Order Comment: Speci men Type: BLOOD SPECIMENOrdering Facility: [facility] Address: [address] [place] [address] Performed By: #### 5 7021-8 ####V[facility] LABORATORYCLIA [id number] [address] RBC (Bld) [#/Vol] 2.78 10*6/uL Low 3.90-5.20 [facility] Comment on above: Order Comment: Speci men Type: BLOOD SPECIMENOrdering Facility: [facility] Address: [address] [place] [address] Performed By: #### 5 7021-8 ####V[facility] LABORATORYCLIA [id number] [address] WBC (Bld) [#/Vol] 8.67 10*3/uL Normal 3.70-11.00 [facility] Comment on above: Order Comment: Speci men Type: BLOOD SPECIMENOrdering Facility: [facility] Address: [address] [place] [address] Performed By: #### 5 7021-8 ####V[facility] LABORATORYCLIA [id number] [address] [place] CNDSon 12-12-2024 CNDS Normal [facility] CONSULT PROGon 12-12-2024 CONSULT PROG Normal [facility] CONSULT PROG Normal [facility] CONSULT PROG Normal [facility] OPERATIVE NOon 12-12-2024 OPERATIVE NO Normal [facility] Basic metabolic 2000 panelon 12-11-2024 Anion gap [Moles/Vol] 11 mmol/L Normal 8-15 [facility] Comment on above: Order Comment: Speci men Type: BLOOD SPECIMENOrdering Facility: [facility] Address: [address] [place] [address] Performed By: #### 2 4321-2 ####VILLARRE[facility] LABORATORYCLIA [id number] [place] [address] [place] Calcium [Mass/Vol] 9.1 mg/dL Normal 8.5-10.2 [facility] Comment on above: Order Comment: Speci men Type: BLOOD SPECIMENOrdering Facility: [facility] Address: [address] [place] [address] Performed By: #### 2 4321-2 ####VILLAR[facility] LABORATORYCLIA [id number] [place] [address] [place] Chloride [Moles/Vol] 102 mmol/L Normal 98-[address] [facility] Comment on above: Order Comment: Speci men Type: BLOOD SPECIMENOrdering Facility: [facility] Address: [facility] [place] [address] Performed By: #### 2 4321-2 ####VILLARRE[facility] LABORATORYCLIA [id number] [place] [address] [place] CO2 [Moles/Vol] 25 mmol/L Normal 22-30 [facility] Comment on above: Order Comment: Speci men Type: BLOOD SPECIMENOrdering Facility: [facility] Address: [facility] [place] [address] Performed By: #### 2 4321-2 ####VILLAR[facility] LABORATORYCLIA [id number] [place] [address] [place] Creatinine [Mass/Vol] 0.80 mg/dL Normal 0.58-0.96 [facility] Comment on above: Order Comment: Speci men Type: BLOOD SPECIMENOrdering Facility: [facility] Address: [address] [place] [address] [place] [address] Performed By: #### 2 4321-2 ####VILLARRE[facility] LABORATORYCLIA [id number] [place] [address] [place] Creatinine and Glomerular filtration rate.predicted panel (S/P/Bld) 71 mL/min/1.73m??? Normal >=60 [facility] Comment on above: Order Comment: Fan meade Type: BLOOD SPECIMENOrdering Facility: [facility] Address: [address] [id number] Result Comment: Hilda mated Glomerular Filtration Rate (eGFR) is calculated using the 2020 CKD-EPI creatinine equation. This equation utilizes serum creatinine, sex, and age as parameters. The creatinine assay has traceable calibration to isotope dilution-mass spectrometry. Refer to KDIGO guidelines for clinical interpretation. In patients with unstable renal function, e.g. those with acute kidney injury, the eGFR may not accurately reflect actual GFR. Performed By: #### 2 4321-2 ####VILL[facility] LABORATORYCLIA [id number] [place] [address] [place] Glucose [Mass/Vol] 203 mg/dL High 74-99 [facility] Comment on above: Order Comment: Fan meade Type: BLOOD SPECIMENOrdering Facility: [facility] Address: [address] [place] [address] Result Comment: The [place] Diabetes Association (ADA) provides guidance for cutoff values for fasting glucose and random glucose. The ADA defines fasting as no caloric intake for at least 8 hours. Fasting plasma glucose results between 100 to 125 mg/dL indicate increased risk for diabetes (prediabetes).Fasting plasma glucose results greater than or equal to 126 mg/dL meet the criteria for diagnosis of diabetes. In the absence of unequivocal hyperglycemia, results should be confirmed by repeat testing. In a patient with classic symptoms of hyperglycemia or hyperglycemic crisis, random plasma glucose results greater than or equal to 200 mg/dL meet the criteria for diagnosis of diabetes.Reference: Standards of Medical Care in Diabetes 2016, [place] [employer]. Diabetes Care. 2016.39(Suppl 1). Performed By: #### 2 4321-2 ####VILLARRE[facility] LABORATORYCLIA [id number] [place] [address] [place] Potassium [Moles/Vol] 3.8 mmol/L Normal 3.7-5.1 [facility] Comment on above: Order Comment: Fan meade Type: BLOOD SPECIMENOrdering Facility: [facility] Address: [address] [place] [address] Performed By: #### 2 4321-2 ####VILLARRE[facility] LABORATORYCLIA [id number] [address] [place] [facility] Sodium [Moles/Vol] 138 mmol/L Normal 136-144 [facility] Comment on above: Order Comment: Speci men Type: BLOOD SPECIMENOrdering Facility: [facility] Address: [address] [place] [address] Performed By: #### 2 4321-2 ####VILLARRE[facility] LABORATORYCLIA [id number] [place] [address] [place] Urea nitrogen [Mass/Vol] 33 mg/dL High 7-21 [facility] Comment on above: Order Comment: Speci men Type: BLOOD SPECIMENOrdering Facility: [facility] Address: [address] [place] [address] Performed By: #### 2 4321-2 ####VILL[facility] LABORATORYCLIA [id number] [address] OF [facility] CASE MANAGEMon 12-11-2024 CASE MANAGEM Normal [facility] CBC W Auto Differential pane l (Bld)on 12-11-2024 Basophils (Bld) [#/Vol] 10*3/uL Normal <0.11 M [facility] Comment on above: Order Comment: Speci men Type: BLOOD SPECIMENOrdering Facility: [facility] Address: [address] [place] [address] Performed By: #### 5 7021-8 ####VILLAR[facility] LABORATORYCLIA [id number] [address] [place] Basophils/100 WBC (Bld) 0.2 % Normal M [facility] Comment on above: Order Comment: Speci men Type: BLOOD SPECIMENOrdering Facility: [facility] Address: [address] [place] [address] Performed By: #### 5 7021-8 ####VILLARRE[facility] LABORATORYCLIA [id number] [address] [place] [facility] Differential cell count method Nom (Bld) Auto Normal [facility] Comment on above: Order Comment: Speci men Type: BLOOD SPECIMENOrdering Facility: [facility] Address: [address] [place] [address] Performed By: #### 5 7021-8 ####VILLARRE[facility] LABORATORYCLIA [id number] [place] [address] [place] Eosinophils (Bld) [#/Vol] 0.11 10*3/uL Normal <0.46 [facility] Comment on above: Order Comment: Speci men Type: BLOOD SPECIMENOrdering Facility: [facility] Address: [address] [place] [address] Performed By: #### 5 7021-8 ####VILLARRE[facility] LABORATORYCLIA [id number] [address] [place] Eosinophils/100 WBC (Bld) 1.1 % Normal [facility] Comment on above: Order Comment: Speci men Type: BLOOD SPECIMENOrdering Facility: [facility] Address: [address] [place] [address] Performed By: #### 5 7021-8 ####VILLARRE[facility] LABORATORYCLIA [id number] [address] [place] Erythrocyte distribution width (RBC) [Ratio] 16.8 % High 11.5-15.0 [facility] Comment on above: Order Comment: Speci men Type: BLOOD SPECIMENOrdering Facility: [facility] Address: [address] [place] [address] Performed By: #### 5 7021-8 ####VILLARRE[facility] LABORATORYCLIA [id number] [address] [place] Hematocrit (Bld) [Volume fraction] 25.2 % Low 36.0-46.0 [facility] Comment on above: Order Comment: Speci men Type: BLOOD SPECIMENOrdering Facility: [facility] Address: [address] [place] [address] Performed By: #### 5 7021-8 ####[facility] LABORATORYCLIA [id number] [address] [place] Hemoglobin (Bld) [Mass/Vol] 8.4 g/dL Low 11.5-15.5 [facility] Comment on above: Order Comment: Speci men Type: BLOOD SPECIMENOrdering Facility: [facility] Address: [address] [place] [address] Performed By: #### 5 7021-8 ####VILLARRE[facility] LABORATORYCLIA [id number] [address] [place] Immature granulocytes (Bld) [#/Vol] 0.16 10*3/uL High <0.10 [facility] Comment on above: Order Comment: Speci men Type: BLOOD SPECIMENOrdering Facility: [facility] Address: [address] [place] [address] Performed By: #### 5 7021-8 ####VILLARRE[facility] LABORATORYCLIA [id number] [address] Immature granulocytes/100 WBC (Bld) 1.5 % Normal [facility] Comment on above: Order Comment: Speci men Type: BLOOD SPECIMENOrdering Facility: [facility] Address: [address] [place] [address] Performed By: #### 5 7021-8 ####VILLARREAL LABORATORYCLIA [id number] [place] [address] [place] Lymphocytes (Bld) [#/Vol] 1.13 10*3/uL Normal 1.00-4.00 [facility] Comment on above: Order Comment: Speci men Type: BLOOD SPECIMENOrdering Facility: [facility] Address: [address] [place] [address] Performed By: #### 5 7021-8 ####VILLARRE[facility] LABORATORYCLIA [id number] [address] [place] Lymphocytes/100 WBC (Bld) 10.9 % Normal [facility] Comment on above: Order Comment: Speci men Type: BLOOD SPECIMENOrdering Facility: [facility] Address: [address] [place] [address] Performed By: #### 5 7021-8 ####VILLARREAL LABORATORYCLIA [id number] [place] [address] [place] MCH (RBC) [Entitic mass] 28.7 pg Normal 26.0-34.0 [facility] Comment on above: Order Comment: Speci men Type: BLOOD SPECIMENOrdering Facility: [facility] Address: [address] [place] [address] Performed By: #### 5 7021-8 ####VILLARREAL LABORATORYCLIA [id number] [address] [place] [facility] MCHC (RBC) [Mass/Vol] 33.3 g/dL Normal 30.5-36.0 [facility] Comment on above: Order Comment: Speci men Type: BLOOD SPECIMENOrdering Facility: [facility] Address: [address] [place] [address] Performed By: #### 5 7021-8 ####VILLARREAL LABORATORYCLIA [id number] [address] MCV (RBC) [Entitic vol] 86.0 fL Normal 80.0-100.0 [facility] Comment on above: Order Comment: Speci men Type: BLOOD SPECIMENOrdering Facility: [facility] Address: [address] [place] [address] Performed By: #### 5 7021-8 ####VILLARREAL LABORATORYCLIA [id number] [address] [place] Monocytes (Bld) [#/Vol] 0.64 10*3/uL Normal <0.87 [facility] Comment on above: Order Comment: Speci men Type: BLOOD SPECIMENOrdering Facility: [facility] Address: [address] [place] [address] Performed By: #### 5 7021-8 ####VILLARREAL LABORATORYCLIA [id number] [address] Monocytes/100 WBC (Bld) 6.2 % Normal [facility] Comment on above: Order Comment: Speci men Type: BLOOD SPECIMENOrdering Facility: [facility] Address: [address] [place] [address] Performed By: #### 5 7021-8 ####VILLARREAL LABORATORYCLIA [id number] [address] [place] Neutrophils (Bld) [#/Vol] 8.31 10*3/uL High 1.45-7.50 [facility] Comment on above: Order Comment: Speci men Type: BLOOD SPECIMENOrdering Facility: [facility] Address: [facility] [place] [address] Performed By: #### 5 7021-8 ####VILLARREAL LABORATORYCLIA [id number] [address] [place] Neutrophils/100 WBC (Bld) 80.1 % Normal [facility] Comment on above: Order Comment: Speci men Type: BLOOD SPECIMENOrdering Facility: [facility] Address: [address] [place] [address] Performed By: #### 5 7021-8 ####VILLARREAL LABORATORYCLIA [id number] [place] [address] [place] Nucleated RBC (Bld) [#/Vol] 10*3/uL Normal <0.01 [facility] Comment on above: Order Comment: Speci men Type: BLOOD SPECIMENOrdering Facility: [facility] Address: [address] [place] [address] Performed By: #### 5 7021-8 ####VILLARREAL LABORATORYCLIA [id number] [address] [place] Nucleated RBC/100 WBC (Bld) [Ratio] 0.0 /100 WBC Normal [facility] Comment on above: Order Comment: Speci men Type: BLOOD SPECIMENOrdering Facility: [facility] Address: [address] [place] [address] Performed By: #### 5 7021-8 ####VILLARREAL LABORATORYCLIA [id number] [place] [address] [place] Platelet mean volume (Bld) [Entitic vol] 7.9 fL Low 9.0-12.7 [facility] Comment on above: Order Comment: Speci men Type: BLOOD SPECIMENOrdering Facility: [facility] Address: [address] [place] [address] Performed By: #### 5 7021-8 ####VILLARREAL LABORATORYCLIA [id number] [place] [address] [place] Platelets (Bld) [#/Vol] 600 10*3/uL High 150-400 [facility] Comment on above: Order Comment: Speci men Type: BLOOD SPECIMENOrdering Facility: [facility] Address: [address] [place] [address] Performed By: #### 5 7021-8 ####[facility] LABORATORYCLIA [id number] [place] [address] [place] RBC (Bld) [#/Vol] 2.93 10*6/uL Low 3.90-5.20 [facility] Comment on above: Order Comment: Speci men Type: BLOOD SPECIMENOrdering Facility: [facility] Address: [address] [place] [address] Performed By: #### 5 7021-8 ####[facility] LABORATORYCLIA [id number] [address] WBC (Bld) [#/Vol] 10.37 10*3/uL Normal 3.70-11.[address] [facility] Comment on above: Order Comment: Speci men Type: BLOOD SPECIMENOrdering Facility: [facility] Address: [address] [place], [place] [address] Performed By: #### 5 7021-8 ####[facility] LABORATORYCLIA [id number] [address] CONSULT PROGon 12-11-2024 CONSULT PROG Normal [facility] CONSULT PROG Normal [facility] CONSULT PROG Normal [facility] CONSULT PROG Normal [facility] CONSULT PROG Normal [facility] NUTRITIONon 12-11-2024 NUTRITION Normal [facility] ANES POSTPROC EVALon 025 ANES POSTPROC EVAL Normal [facility] ANES PRE-OPon 12-10-2024 ANES PRE-OP [facility] BRIEF OP NOTon 12-10-2024 BRIEF OP NOT Normal [facility] Basic metabolic 2000 panelon 12-10-2024 Anion gap [Moles/Vol] 10 mmol/L Normal 8-15 [facility] Comment on above: Order Comment: Speci men Type: BLOOD SPECIMENOrdering Facility: [facility] Address: [address] [place] [address] Performed By: #### 2 4321-2 ####VILLARREAL LABORATORYCLIA [id number] [place] [address] [place] Calcium [Mass/Vol] 8.9 mg/dL Normal 8.5-10.2 [facility] Comment on above: Order Comment: Speci men Type: BLOOD SPECIMENOrdering Facility: [facility] Address: [address] [place] [address] Performed By: #### 2 4321-2 ####VILLARREAL LABORATORYCLIA [id number] [place] [address] [place] Chloride [Moles/Vol] 102 mmol/L Normal 98-[address] [facility] Comment on above: Order Comment: Speci men Type: BLOOD SPECIMENOrdering Facility: [facility] Address: [address] [place] [address] Performed By: #### 2 4321-2 ####VILLARRE[facility] LABORATORYCLIA [id number] [place] [address] [place] CO2 [Moles/Vol] 26 mmol/L Normal 22-30 [facility] Comment on above: Order Comment: Speci men Type: BLOOD SPECIMENOrdering Facility: [facility] Address: [address] [place] [address] Performed By: #### 2 4321-2 ####VILLARRE[facility] LABORATORYCLIA [id number] [address] [place] Creatinine [Mass/Vol] 0.68 mg/dL Normal 0.58-0.96 [facility] Comment on above: Order Comment: Speci men Type: BLOOD SPECIMENOrdering Facility: [facility] Address: [address] [place] [address] Performed By: #### 2 4321-2 ####VILLARRE[facility] LABORATORYCLIA [id number] [address] Creatinine and Glomerular filtration rate.predicted panel (S/P/Bld) 84 mL/min/1.73m??? Normal >=60 [facility] Comment on above: Order Comment: Speci men Type: BLOOD SPECIMENOrdering Facility: [facility] Address: [address] [place] [address] Result Comment: Hilda mated Glomerular Filtration Rate (eGFR) is calculated using the 2020 CKD-EPI creatinine equation. This equation utilizes serum creatinine, sex, and age as parameters. The creatinine assay has traceable calibration to isotope dilution-mass spectrometry. Refer to KDIGO guidelines for clinical interpretation. In patients with unstable renal function, e.g. those with acute kidney injury, the eGFR may not accurately reflect actual GFR. Performed By: #### 2 4321-2 ####[facility] LABORATORYCLIA [id number] [place] [id number] [place] Glucose [Mass/Vol] 79 mg/dL Normal 74-99 [facility] Comment on above: Order Comment: Fan men Type: BLOOD SPECIMENOrdering Facility: [facility] Address: [address] [place] [address] Result Comment: The [place] Diabetes Association (ADA) provides guidance for cutoff values for fasting glucose and random glucose. The ADA defines fasting as no caloric intake for at least 8 hours. Fasting plasma glucose results between 100 to 125 mg/dL indicate increased risk for diabetes (prediabetes).Fasting plasma glucose results greater than or equal to 126 mg/dL meet the criteria for diagnosis of diabetes. In the absence of unequivocal hyperglycemia, results should be confirmed by repeat testing. In a patient with classic symptoms of hyperglycemia or hyperglycemic crisis, random plasma glucose results greater than or equal to 200 mg/dL meet the criteria for diagnosis of diabetes.Reference: Standards of Medical Care in Diabetes 2016, [place] Diabetes Association. Diabetes Care. 2016.39(Suppl 1). Performed By: #### 2 4321-2 ####[facility] LABORATORYCLIA [id number] [place] [id number] [place] Potassium [Moles/Vol] 4.1 mmol/L Normal 3.7-5.1 [facility] Comment on above: Order Comment: Fan men Type: BLOOD SPECIMENOrdering Facility: [facility] Address: [address] [place] [id number] Performed By: #### 2 4321-2 ####VILLARREAL LABORATORYCLIA [id number] [place] [address] [place] Sodium [Moles/Vol] 138 mmol/L Normal 136-144 [facility] Comment on above: Order Comment: Speci men Type: BLOOD SPECIMENOrdering Facility: [facility] Address: [address] [place] [address] Performed By: #### 2 4321-2 ####VILLARREAL LABORATORYCLIA [id number] [place] [address] [place] Urea nitrogen [Mass/Vol] 45 mg/dL High 7-21 [facility] Comment on above: Order Comment: Speci men Type: BLOOD SPECIMENOrdering Facility: [facility] Address: [address] [place] [address] Performed By: #### 2 4321-2 ####VILLARREAL LABORATORYCLIA [id number] [address] [place] CASE MANAGEMon 12-10-2024 CASE MANAGEM [facility] CBC W Auto Differential pane l (Bld)on 12-10-2024 Basophils (Bld) [#/Vol] 10*3/uL Normal <0.11 [facility] Comment on above: Order Comment: Speci men Type: BLOOD SPECIMENOrdering Facility: [facility] Address: [address] [place] [address] Performed By: #### 5 7021-8 ####VILLARRE[facility] LABORATORYCLIA [id number] [place] [address] [place] Basophils/100 WBC (Bld) 0.2 % Normal [facility] Comment on above: Order Comment: Speci men Type: BLOOD SPECIMENOrdering Facility: [facility] Address: [address] [place] [address] Performed By: #### 5 7021-8 ####VILLARREAL LABORATORYCLIA [id number] [place] [address] [place] Differential cell count method Nom (Bld) Auto [facility] Comment on above: Order Comment: Speci men Type: BLOOD SPECIMENOrdering Facility: [facility] Address: [address] [place] [address] Performed By: #### 5 7021-8 ####VILLARRE[facility] LABORATORYCLIA [id number] [place] [address] [place] Eosinophils (Bld) [#/Vol] 0.07 10*3/uL Normal <0.46 [facility] Comment on above: Order Comment: Speci men Type: BLOOD SPECIMENOrdering Facility: [facility] Address: [address] [place] [address] Performed By: #### 5 7021-8 ####VILLARRE[facility] LABORATORYCLIA [id number] [place] [address] [place] Eosinophils/100 WBC (Bld) 0.6 % Normal [facility] Comment on above: Order Comment: Speci men Type: BLOOD SPECIMENOrdering Facility: [facility] Address: [address] [place] [address] Performed By: #### 5 7021-8 ####VILLARREAL LABORATORYCLIA [id number] [address] [place] [facility] Erythrocyte distribution width (RBC) [Ratio] 16.6 % High 11.5-15.0 [facility] Comment on above: Order Comment: Speci men Type: BLOOD SPECIMENOrdering Facility: [facility] Address: [address] [place] [address] Performed By: #### 5 7021-8 ####VILLAR[facility] LABORATORYCLIA [id number] [address] Hematocrit (Bld) [Volume fraction] 23.9 % Low 36.0-46.0 [facility] Comment on above: Order Comment: Speci men Type: BLOOD SPECIMENOrdering Facility: [facility] Address: [address] [place] [address] Performed By: #### 5 7021-8 ####VILLARRE[facility] LABORATORYCLIA [id number] [place] [address] [place] Hemoglobin (Bld) [Mass/Vol] 7.8 g/dL Low 11.5-15.5 [facility] Comment on above: Order Comment: Speci men Type: BLOOD SPECIMENOrdering Facility: [facility] Address: [address] [place] [address] Performed By: #### 5 7021-8 ####V[facility] LABORATORYCLIA [id number] [address] [place] Immature granulocytes (Bld) [#/Vol] 0.16 10*3/uL High <0.10 [facility] Comment on above: Order Comment: Speci men Type: BLOOD SPECIMENOrdering Facility: [facility] Address: [address] [place] [address] Performed By: #### 5 7021-8 ####VILL[facility] LABORATORYCLIA [id number] [address] Immature granulocytes/100 WBC (Bld) 1.4 % Normal [facility] Comment on above: Order Comment: Speci men Type: BLOOD SPECIMENOrdering Facility: [facility] Address: [address] [place] [address] Performed By: #### 5 7021-8 ####VILLARRE[facility] LABORATORYCLIA [id number] [address] Lymphocytes (Bld) [#/Vol] 1.18 10*3/uL Normal 1.00-4.00 [facility] Comment on above: Order Comment: Speci men Type: BLOOD SPECIMENOrdering Facility: [facility] Address: [address] [place] [address] Performed By: #### 5 7021-8 ####VILLARRE[facility] LABORATORYCLIA [id number] [address] Lymphocytes/100 WBC (Bld) 10.3 % Normal [facility] Comment on above: Order Comment: Speci men Type: BLOOD SPECIMENOrdering Facility: [facility] Address: [address] [place] [address] Performed By: #### 5 7021-8 ####VILLARRE[facility] LABORATORYCLIA [id number] [address] [place] MCH (RBC) [Entitic mass] 28.9 pg Normal 26.0-34.0 [facility] Comment on above: Order Comment: Speci men Type: BLOOD SPECIMENOrdering Facility: [facility] Address: [address] [place] [address] Performed By: #### 5 7021-8 ####VILLARRE[facility] LABORATORYCLIA [id number] [address] [place] MCHC (RBC) [Mass/Vol] 32.6 g/dL Normal 30.5-36.0 [facility] Comment on above: Order Comment: Speci men Type: BLOOD SPECIMENOrdering Facility: [facility] Address: [address] [place] [address] Performed By: #### 5 7021-8 ####VILLARRE[facility] LABORATORYCLIA [id number] [place] [address] [place] MCV (RBC) [Entitic vol] 88.5 fL Normal 80.0-100.0 [facility] Comment on above: Order Comment: Speci men Type: BLOOD SPECIMENOrdering Facility: [facility] Address: [address] [place] [address] Performed By: #### 5 7021-8 ####VILLAR[facility] LABORATORYCLIA [id number] [place] [address] [place] Monocytes (Bld) [#/Vol] 0.70 10*3/uL Normal <0.87 [facility] Comment on above: Order Comment: Speci men Type: BLOOD SPECIMENOrdering Facility: [facility] Address: [address] [place] [address] Performed By: #### 5 7021-8 ####VILL[facility] LABORATORYCLIA [id number] [address] Monocytes/100 WBC (Bld) 6.1 % Normal [facility] Comment on above: Order Comment: Speci men Type: BLOOD SPECIMENOrdering Facility: [facility] Address: [address] [place] [address] Performed By: #### 5 7021-8 ####VILLARRE[facility] LABORATORYCLIA [id number] [place] [address] [place] Neutrophils (Bld) [#/Vol] 9.32 10*3/uL High 1.45-7.50 [facility] Comment on above: Order Comment: Speci men Type: BLOOD SPECIMENOrdering Facility: [facility] Address: [address] [place] [address] Performed By: #### 5 7021-8 ####VILLARRE[facility] LABORATORYCLIA [id number] [address] [place] Neutrophils/100 WBC (Bld) 81.4 % Normal [facility] Comment on above: Order Comment: Speci men Type: BLOOD SPECIMENOrdering Facility: [facility] Address: [address] [place] [address] Performed By: #### 5 7021-8 ####VILLARRE[facility] LABORATORYCLIA [id number] [place] [address] [place] Nucleated RBC (Bld) [#/Vol] 10*3/uL Normal <0.01 [facility] Comment on above: Order Comment: Speci men Type: BLOOD SPECIMENOrdering Facility: [facility] Address: [address] [place] [address] Performed By: #### 5 7021-8 ####VILLARRE[facility] LABORATORYCLIA [id number] [address] [place] Nucleated RBC/100 WBC (Bld) [Ratio] 0.0 /100 WBC Normal [facility] Comment on above: Order Comment: Speci men Type: BLOOD SPECIMENOrdering Facility: [facility] Address: [address] [place] [address] Performed By: #### 5 7021-8 ####VILLARRE[facility] LABORATORYCLIA [id number] [place] [address] [place] Platelet mean volume (Bld) [Entitic vol] 8.1 fL Low 9.0-12.7 [facility] Comment on above: Order Comment: Speci men Type: BLOOD SPECIMENOrdering Facility: [facility] Address: [address] [place] [address] Performed By: #### 5 7021-8 ####VILLARRE[facility] LABORATORYCLIA [id number] [place] [address] [place] Platelets (Bld) [#/Vol] 579 10*3/uL High 150-400 [facility] Comment on above: Order Comment: Speci men Type: BLOOD SPECIMENOrdering Facility: [facility] Address: [address] [place] [address] Performed By: #### 5 7021-8 ####VILLARREAL LABORATORYCLIA [id number] [place] [address] [facility] [place] RBC (Bld) [#/Vol] 2.70 10*6/uL Low 3.90-5.20 [facility] Comment on above: Order Comment: Speci men Type: BLOOD SPECIMENOrdering Facility: [facility] Address: [address] [place] [address] Performed By: #### 5 7021-8 ####[facility] LABORATORYCLIA [id number] [place] [id number] [place] WBC (Bld) [#/Vol] 11.45 10*3/uL High 3.70-11.[address] [facility] Comment on above: Order Comment: Speci men Type: BLOOD SPECIMENOrdering Facility: [facility] Address: [address] [place] [address] Performed By: #### 5 7021-8 ####[facility] LABORATORYCLIA [id number] [address] CONSULT PROGon 12-10-2024 CONSULT PROG Normal [facility] CONSULT PROG Normal [facility] CONSULT PROG Normal [facility] CONSULT PROG Normal [facility] OPERATIVE NOon 12-10-2024 OPERATIVE NO Normal [facility] SURGICAL PATHOLOGYon 025 CASE REPORT Normal [facility] Comment on above: Order Comment: Speci men Type: TISSUE SPECIMENOrdering Facility: [facility] Address: [address] [place] [address] Result Comment: Surg ical Pathology Report Case: [id number] Provider: José Miguel Morgan MD Collected: 12/10/2024 07:37 AMOrdering Location: [facility] Received: 12/10/2024 08:27 AMPathologist: Jesús Jeff MDSpecimens: A) - Small Bowel, Duodenum, Biopsy, sprue B) - Stomach, Biopsy, hp C) - Esophagus, Biopsy, at 30 cm r/o krystina Performed By: #### S ####[facility] LABCLIA [id number] [address] [facility] LABCLIA [id number] [place] [address] [place] FINAL DIAGNOSIS Normal [facility] Comment on above: Order Comment: Speci men Type: TISSUE SPECIMENOrdering Facility: [facility] Address: [address] [place] [address] Result Comment: A. D uodenum, biopsy:- Focal gastric surface metaplasia associated with mild regenerative epithelial changes.- No other significant pathologic alteration.B. Stomach, biopsy:- Reactive gastropathy.- No morphologic evidence of Helicobacter pylori.C. Esophagus at 30 cm, biopsy:- Fragments of of unremarkable squamous mucosa.- No evidence of Krystina.JRG/mm/12/11/2024 Performed By: #### S ####[facility] LABCLIA [id number] [address] LABCLIA [id number] [place] [address] [place] FINAL PERFORMING LAB Normal [facility] Comment on above: Order Comment: Speci men Type: TISSUE SPECIMENOrdering Facility: [facility] Address: [address] [place] [address] Result Comment: Diag nostic interpretation performed at: [facility], [address] [place] [address] CLIA# [id number] Director: Manfred Diallo MD Performed By: #### S ####[facility] LABCLIA [id number] [address] LABCLIA [id number] [address] [place] GROSS DESCRIPTION [facility] Comment on above: Order Comment: Speci men Type: TISSUE SPECIMENOrdering Facility: [facility] Address: [address] [place] [address] Result Comment: A. S mall Bowel, Duodenum, BiopsyReceived in formalin are multiple pieces of dennison-orange, soft tissue aggregating to 1.1 x 0.2 x 0.1 cm. Totally submitted in one cassette.B. Stomach, BiopsyReceived in formalin are multiple pieces of red-brown, soft tissue aggregating to 1.5 x 0.2 x 0.1 cm. Totally submitted in one cassette.C. Esophagus, BiopsyReceived in formalin are multiple pieces of dennison-white, soft tissue aggregating to 0.9 x 0.3 x 0.1 cm. Totally submitted in one cassette.Gross examination performed at [facility], [address] [place], [place] [address]AMS December 10, 2024 10:50 AM Performed By: #### S ####[facility] LABCLIA [id number] [place] [address] [facility] LABCLIA [id number] [facility] [id number] [place] [address] [facility] THERAPY NTon 12-10-2024 THERAPY NT [facility] THERAPY NT [facility] Basic metabolic 2000 panelon 12-09-2024 Anion gap [Moles/Vol] 10 mmol/L Normal 8-15 [facility] Comment on above: Order Comment: Speci men Type: BLOOD SPECIMENOrdering Facility: [facility] Address: [address] [place], [place] [address] Performed By: #### 2 4321-2, 09386-3, 2276-02 ####[facility] LABORATORYCLIA [id number] [place] [address] [place] Calcium [Mass/Vol] 9.3 mg/dL Normal 8.5-10.2 [facility] Comment on above: Order Comment: Speci men Type: BLOOD SPECIMENOrdering Facility: [facility] Address: [address] [place] [address] Performed By: #### 2 4321-2, 62005-6, 2275- ####[facility] LABORATORYCLIA [id number] [place] [address] [place] Chloride [Moles/Vol] 100 mmol/L Normal 98-[address] [facility] Comment on above: Order Comment: Speci men Type: BLOOD SPECIMENOrdering Facility: [facility] Address: [address] [place], [place] [address] Performed By: #### 2 4321-2, 39022-6, 2275-4 ####[facility] LABORATORYCLIA [id number] [place] [address] [place] CO2 [Moles/Vol] 26 mmol/L Normal 22-30 [facility] Comment on above: Order Comment: Speci men Type: BLOOD SPECIMENOrdering Facility: [facility] Address: [address] [place] [address] Performed By: #### 2 4321-2, 30677-2, 2276-02 ####[facility] LABORATORYCLIA [id number] [place] [id number] [place] Creatinine [Mass/Vol] 0.80 mg/dL Normal 0.58-0.96 [facility] Comment on above: Order Comment: Speci men Type: BLOOD SPECIMENOrdering Facility: [facility] Address: [address] [place] [address] Performed By: #### 2 4321-2, 67640-4, 2276-02 ####[facility] LABORATORYCLIA [id number] [address] Creatinine and Glomerular filtration rate.predicted panel (S/P/Bld) 71 mL/min/1.73m??? Normal >=60 [facility] Comment on above: Order Comment: Speci men Type: BLOOD SPECIMENOrdering Facility: [facility] Address: [address] [place] [address] Result Comment: Hilda mated Glomerular Filtration Rate (eGFR) is calculated using the 2020 CKD-EPI creatinine equation. This equation utilizes serum creatinine, sex, and age as parameters. The creatinine assay has traceable calibration to isotope dilution-mass spectrometry. Refer to KDIGO guidelines for clinical interpretation. In patients with unstable renal function, e.g. those with acute kidney injury, the eGFR may not accurately reflect actual GFR. Performed By: #### 2 4321-2, 40693-6, 2275-4 ####VILL[facility]RE[facility] LABORATORYCLIA [id number] [place] [id number] [place] Glucose [Mass/Vol] 151 mg/dL High 74-99 [facility] Comment on above: Order Comment: Katei men Type: BLOOD SPECIMENOrdering Facility: [facility] Address: [address] [place] [address] Result Comment: The [place] Diabetes Association (ADA) provides guidance for cutoff values for fasting glucose and random glucose. The ADA defines fasting as no caloric intake for at least 8 hours. Fasting plasma glucose results between 100 to 125 mg/dL indicate increased risk for diabetes (prediabetes).Fasting plasma glucose results greater than or equal to 126 mg/dL meet the criteria for diagnosis of diabetes. In the absence of unequivocal hyperglycemia, results should be confirmed by repeat testing. In a patient with classic symptoms of hyperglycemia or hyperglycemic crisis, random plasma glucose results greater than or equal to 200 mg/dL meet the criteria for diagnosis of diabetes.Reference: Standards of Medical Care in Diabetes 2016, [place] Diabetes Association. Diabetes Care. 2016.39(Suppl 1). Performed By: #### 2 4321-2, 95185-2, 2275-4 ####VILL[facility]RE[facility] LABORATORYCLIA [id number] [place] [address] [place] Potassium [Moles/Vol] 4.5 mmol/L Normal 3.7-5.1 [facility] Comment on above: Order Comment: Fan meade Type: BLOOD SPECIMENOrdering Facility: [facility] Address: [address] [place] [address] Performed By: #### 2 4321-2, 43911-8, 2275-4 ####V[facility]RE[facility] LABORATORYCLIA [id number] [place] [address] [place] Sodium [Moles/Vol] 136 mmol/L Normal 136-144 [facility] Comment on above: Order Comment: Katei men Type: BLOOD SPECIMENOrdering Facility: [facility] Address: [address] [place], [place] [address] Performed By: #### 2 4321-2, 69281-4, 2275-4 ####V[facility] LABORATORYCLIA [id number] [place] [address] [place] Urea nitrogen [Mass/Vol] 43 mg/dL High 7-21 [facility] Comment on above: Order Comment: Speci men Type: BLOOD SPECIMENOrdering Facility: [facility] Address: [address] [place] [address] Performed By: #### 2 4321-2, 30619-4, 2276-4 ####[facility] LABORATORYCLIA [id number] [place] [address] [place] CBC W Auto Differential pane l (Bld)on 12-09-2024 Basophils (Bld) [#/Vol] 10*3/uL Normal <0.11 [facility] Comment on above: Order Comment: Speci men Type: BLOOD SPECIMENOrdering Facility: [facility] Address: [address] [place] [address] Performed By: #### 5 7021-8 ####V[facility] LABORATORYCLIA [id number] [place] [address] [place] Basophils/100 WBC (Bld) 0.1 % Normal [facility] Comment on above: Order Comment: Speci men Type: BLOOD SPECIMENOrdering Facility: [facility] Address: [address] [place] [address] Performed By: #### 5 7021-8 ####V[facility] LABORATORYCLIA [id number] [place] [address] [place] Differential cell count method Nom (Bld) Auto Normal [facility] Comment on above: Order Comment: Speci men Type: BLOOD SPECIMENOrdering Facility: [facility] Address: [address] [place] [address] Performed By: #### 5 7021-8 ####[facility] LABORATORYCLIA [id number] [place] [address] [place] Eosinophils (Bld) [#/Vol] 0.15 10*3/uL Normal <0.46 [facility] Comment on above: Order Comment: Speci men Type: BLOOD SPECIMENOrdering Facility: [facility] Address: [address] [place] [address] Performed By: #### 5 7021-8 ####V[facility] LABORATORYCLIA [id number] [place] [address] [facility] [place] Eosinophils/100 WBC (Bld) 1.4 % Normal [facility] Comment on above: Order Comment: Speci men Type: BLOOD SPECIMENOrdering Facility: [facility] Address: [facility] [place] [address] Performed By: #### 5 7021-8 ####V[facility] LABORATORYCLIA [id number] [address] [place] Erythrocyte distribution width (RBC) [Ratio] 16.4 % High 11.5-15.0 [facility] Comment on above: Order Comment: Speci men Type: BLOOD SPECIMENOrdering Facility: [facility] Address: [address] [place] [address] Performed By: #### 5 7021-8 ####V[facility] LABORATORYCLIA [id number] [address] [place] Hematocrit (Bld) [Volume fraction] 24.0 % Low 36.0-46.0 [facility] Comment on above: Order Comment: Speci men Type: BLOOD SPECIMENOrdering Facility: [facility] Address: [address] [place] [address] Performed By: #### 5 7021-8 ####[facility] LABORATORYCLIA [id number] [address] [place] Hemoglobin (Bld) [Mass/Vol] 7.6 g/dL Low 11.5-15.5 [facility] Comment on above: Order Comment: Speci men Type: BLOOD SPECIMENOrdering Facility: [facility] Address: [address] [place] [address] Performed By: #### 5 7021-8 ####[facility] LABORATORYCLIA [id number] [address] [place] Immature granulocytes (Bld) [#/Vol] 0.23 10*3/uL High <0.10 [facility] Comment on above: Order Comment: Speci men Type: BLOOD SPECIMENOrdering Facility: [facility] Address: [address] [place] [address] Performed By: #### 5 7021-8 ####[facility] LABORATORYCLIA [id number] [address] [place] Immature granulocytes/100 WBC (Bld) 2.1 % Normal [facility] Comment on above: Order Comment: Speci men Type: BLOOD SPECIMENOrdering Facility: [facility] Address: [address] [place] [address] Performed By: #### 5 7021-8 ####[facility] LABORATORYCLIA [id number] [address] [place] Lymphocytes (Bld) [#/Vol] 1.43 10*3/uL Normal 1.00-4.00 [facility] Comment on above: Order Comment: Speci men Type: BLOOD SPECIMENOrdering Facility: [facility] Address: [address] [place] [address] Performed By: #### 5 7021-8 ####[facility] LABORATORYCLIA [id number] [address] Lymphocytes/100 WBC (Bld) 13.3 % Normal [facility] Comment on above: Order Comment: Speci men Type: BLOOD SPECIMENOrdering Facility: [facility] Address: [address] [place] [address] Performed By: #### 5 7021-8 ####[facility] LABORATORYCLIA [id number] [address] [place] MCH (RBC) [Entitic mass] 27.9 pg Normal 26.0-34.0 [facility] Comment on above: Order Comment: Speci men Type: BLOOD SPECIMENOrdering Facility: [facility] Address: [address] [place] [address] Performed By: #### 5 7021-8 ####[facility] LABORATORYCLIA [id number] [address] MCHC (RBC) [Mass/Vol] 31.7 g/dL Normal 30.5-36.0 [facility] Comment on above: Order Comment: Speci men Type: BLOOD SPECIMENOrdering Facility: [facility] Address: [address] [place] [address] Performed By: #### 5 7021-8 ####V[facility] LABORATORYCLIA [id number] [address] [place] MCV (RBC) [Entitic vol] 88.2 fL Normal 80.0-100.0 [facility] Comment on above: Order Comment: Speci men Type: BLOOD SPECIMENOrdering Facility: [facility] Address: [address] [place] [address] Performed By: #### 5 7021-8 ####[facility] LABORATORYCLIA [id number] [address] [place] Monocytes (Bld) [#/Vol] 0.62 10*3/uL Normal <0.87 [facility] Comment on above: Order Comment: Speci men Type: BLOOD SPECIMENOrdering Facility: [facility] Address: [address] [place] [address] Performed By: #### 5 7021-8 ####[facility] LABORATORYCLIA [id number] [address] Monocytes/100 WBC (Bld) 5.8 % Normal [facility] Comment on above: Order Comment: Speci men Type: BLOOD SPECIMENOrdering Facility: [facility] Address: [address] [place] [address] Performed By: #### 5 7021-8 ####[facility] LABORATORYCLIA [id number] [address] [place] Neutrophils (Bld) [#/Vol] 8.31 10*3/uL High 1.45-7.50 [facility] Comment on above: Order Comment: Speci men Type: BLOOD SPECIMENOrdering Facility: [facility] Address: [address] [place] [address] Performed By: #### 5 7021-8 ####[facility] LABORATORYCLIA [id number] [address] Neutrophils/100 WBC (Bld) 77.3 % Normal [facility] Comment on above: Order Comment: Speci men Type: BLOOD SPECIMENOrdering Facility: [facility] Address: [address] [place] [address] Performed By: #### 5 7021-8 ####V[facility] LABORATORYCLIA [id number] [address] [place] Nucleated RBC (Bld) [#/Vol] 10*3/uL Normal <0.01 [facility] Comment on above: Order Comment: Speci men Type: BLOOD SPECIMENOrdering Facility: [facility] Address: [address] [place] [address] Performed By: #### 5 7021-8 ####V[facility] LABORATORYCLIA [id number] [address] [place] Nucleated RBC/100 WBC (Bld) [Ratio] 0.0 /100 WBC Normal [facility] Comment on above: Order Comment: Speci men Type: BLOOD SPECIMENOrdering Facility: [facility] Address: [address] [place] [address] Performed By: #### 5 7021-8 ####V[facility] LABORATORYCLIA [id number] [address] [place] Platelet mean volume (Bld) [Entitic vol] 8.3 fL Low 9.0-12.7 [facility] Comment on above: Order Comment: Speci men Type: BLOOD SPECIMENOrdering Facility: [facility] Address: [address] [place] [address] Performed By: #### 5 7021-8 ####V[facility] LABORATORYCLIA [id number] [address] [place] Platelets (Bld) [#/Vol] 577 10*3/uL High 150-400 [facility] Comment on above: Order Comment: Speci men Type: BLOOD SPECIMENOrdering Facility: [facility] Address: [address] [place] [address] Performed By: #### 5 7021-8 ####V[facility] LABORATORYCLIA [id number] [place] [address] [place] RBC (Bld) [#/Vol] 2.72 10*6/uL Low 3.90-5.20 [facility] Comment on above: Order Comment: Speci men Type: BLOOD SPECIMENOrdering Facility: [facility] Address: [address] [place] [address] Performed By: #### 5 7021-8 ####V[facility] LABORATORYCLIA [id number] [address] [place] WBC (Bld) [#/Vol] 10.75 10*3/uL Normal 3.70-11.[address] [facility] Comment on above: Order Comment: Fan meade Type: BLOOD SPECIMENOrdering Facility: [facility] Address: [address] [place] [address] Performed By: #### 5 7021-8 ####[facility] LABORATORYCLIA [id number] [address] CELIAC SCREENon 12-09-2024 GLIAD DEAMIDATED IGA QUAL Negative Normal Negative, Test not Indicated [facility] Comment on above: Order Comment: Fan [facility] Type: BLOOD SPECIMENOrdering Facility: [facility] Address: [address] [place] [address] Result Comment: This is used as an aid in diagnosis of celiac disease. Clinical correlation is required.The following results were obtained with an [employer] QUANTA Lite Gliadin IgA JOE Gliadin. Gliadin IgA values obtained with different manufacturers' assay methods may not be used interchangeably. The magnitude of the reported IgA levels cannot be correlated to an endpoint titer. Performed By: #### L [id number] ####[facility] LABCLIA [id number] [address] [place] Gliadin peptide IgA Qn (S) 2 Units Normal <20 [facility] Comment on above: Order Comment: Fan [facility] Type: BLOOD SPECIMENOrdering Facility: [facility] Address: [address] [place] [address] Performed By: #### L [id number] ####[facility] LABCLIA [id number] [address] [place] INTERPRETATION No serological evidence of celiac disease, however, if celiac disease is clinically suspected and patient is not on gluten-free diet, histological diagnosis may be considered. HLA testing may help with risk assessment. Normal [facility] Comment on above: Order Comment: [facility] Type: BLOOD SPECIMENOrdering Facility: [facility] Address: [address] [place] [address] Performed By: #### L [id number] ####[facility] LABCLIA [id number] [place] [address] [place] TRANSGLUTAMINASE IGA ABS INTERPRETATION Negative Normal Negative [facility] Comment on above: Order Comment: Speci men Type: BLOOD SPECIMENOrdering Facility: [facility] Address: [address] [place] [address] Result Comment: The following results were obtained with [employer] R h-tTG IgA JOE.???R h-tTG IgA values obtained with different manufacturers' assay methods may not be used interchangeably. The magnitude of the reported IgA levels cannot be corelated to an endpoint???concentration.This is used as an aid in diagnosis of celiac disease. Clinical correlation is required. Performed By: #### L [id number] ####[facility] LABCLIA [id number] [place] [address] [place] tTG IgA Qn (S) <2 Normal <4 [facility] Comment on above: Order Comment: Speci men Type: BLOOD SPECIMENOrdering Facility: [facility] Address: [address] [place] [address] Performed By: #### L [id number] ####[facility] LABCLIA [id number] [place] [address] [place] CONSULT PROGon 12-09-2024 CONSULT PROG Normal [facility] CONSULT PROG Normal [facility] CONSULT PROG Normal [facility] Ferritin SerPl-mCncon 2024 Ferritin [Mass/Vol] 1588.0 ng/mL High 14.7-205.1 [facility] Comment on above: Order Comment: Speci men Type: BLOOD SPECIMENOrdering Facility: [facility] Address: [address] [place] [address] Performed By: #### 2 4321-2, 75212-6, 2276-4 ####[facility] LABORATORYCLIA [id number] [place] [address] [place] Haptoglob SerPl-mCncon 12-09 Haptoglobin [Mass/Vol] 483 mg/dL High 31-238 [facility] Comment on above: Order Comment: Speci men Type: BLOOD SPECIMENOrdering Facility: [facility] Address: [address] [place] [address] Performed By: #### 4 542-7 ####[facility] LABCLIA [id number] [place] [address] [place] IgA SerPl-mCncon 12-09-2024 IgA [Mass/Vol] 166 mg/dL Normal 70-400 [facility] Comment on above: Order Comment: Speci men Type: BLOOD SPECIMENOrdering Facility: [facility] Address: [address] [place] [address] Performed By: #### 2 458-8 ####[facility] LABCLIA [id number] [place] [address] [place] Iron and Iron binding capaci ty panelon 12-09-2024 Iron [Mass/Vol] 91 ug/dL Normal 41-186 [facility] Comment on above: Order Comment: Speci men Type: BLOOD SPECIMENOrdering Facility: [facility] Address: [address] [place] [address] Performed By: #### 2 4321-2, 13856-8, 2276-4 ####[facility] LABORATORYCLIA [id number] [address] [place] Iron binding capacity [Mass/Vol] 223 ug/dL Low 232-386 [facility] Comment on above: Order Comment: Speci men Type: BLOOD SPECIMENOrdering Facility: [facility] Address: [address] [place] [address] Performed By: #### 2 4321-2, 40385-8, 2276-4 ####[facility] LABORATORYCLIA [id number] [place] [id number] [place] Iron/TIBC [Molar ratio] 40.8 % Normal 15.0-57.0 M [facility] Comment on above: Order Comment: Speci men Type: BLOOD SPECIMENOrdering Facility: [facility] Address: [address] [place] [address] Performed By: #### 2 4321-2, 77038-6, 2276-4 ####[facility] LABORATORYCLIA [id number] [place] [address] [place] CBC W Auto Differential pane l (Bld)on 12-08-2024 Basophils (Bld) [#/Vol] 0.03 10*3/uL Normal <0.11 [facility] Comment on above: Order Comment: Speci men Type: BLOOD SPECIMENOrdering Facility: [facility] Address: [address] [place] [address] Performed By: #### 5 7021-8 ####V[facility] LABORATORYCLIA [id number] [address] [place] Basophils/100 WBC (Bld) 0.3 % Normal [facility] Comment on above: Order Comment: Speci men Type: BLOOD SPECIMENOrdering Facility: [facility] Address: [address] [place] [address] Performed By: #### 5 7021-8 ####VILL[facility] LABORATORYCLIA [id number] [address] [place] [facility] Differential cell count method Nom (Bld) Auto Normal [facility] Comment on above: Order Comment: Speci men Type: BLOOD SPECIMENOrdering Facility: [facility] Address: [address] [place] [address] Performed By: #### 5 7021-8 ####VILL[facility] LABORATORYCLIA [id number] [place] [address] [place] Eosinophils (Bld) [#/Vol] 0.13 10*3/uL Normal <0.46 [facility] Comment on above: Order Comment: Speci men Type: BLOOD SPECIMENOrdering Facility: [facility] Address: [address] [place] [address] Performed By: #### 5 7021-8 ####V[facility] LABORATORYCLIA [id number] [place] [address] [place] Eosinophils/100 WBC (Bld) 1.1 % Normal [facility] Comment on above: Order Comment: Speci men Type: BLOOD SPECIMENOrdering Facility: [facility] Address: [address] [place] [address] Performed By: #### 5 7021-8 ####VILL[facility] LABORATORYCLIA [id number] [place] [address] [place] Erythrocyte distribution width (RBC) [Ratio] 16.0 % High 11.5-15.0 [facility] Comment on above: Order Comment: Speci men Type: BLOOD SPECIMENOrdering Facility: [facility] Address: [address] [place] [address] Performed By: #### 5 7021-8 ####[facility] LABORATORYCLIA [id number] [place] [address] [place] Hematocrit (Bld) [Volume fraction] 24.0 % Low 36.0-46.0 [facility] Comment on above: Order Comment: Speci men Type: BLOOD SPECIMENOrdering Facility: [facility] Address: [address] [place] [address] Performed By: #### 5 7021-8 ####[facility] LABORATORYCLIA [id number] [place] [address] [place] Hemoglobin (Bld) [Mass/Vol] 7.7 g/dL Low 11.5-15.5 [facility] Comment on above: Order Comment: Speci men Type: BLOOD SPECIMENOrdering Facility: [facility] Address: [address] [place] [address] Performed By: #### 5 7021-8 ####[facility] LABORATORYCLIA [id number] [place] [address] [place] Immature granulocytes (Bld) [#/Vol] 0.19 10*3/uL High <0.10 [facility] Comment on above: Order Comment: Speci men Type: BLOOD SPECIMENOrdering Facility: [facility] Address: [address] [place] [address] Performed By: #### 5 7021-8 ####[facility] LABORATORYCLIA [id number] [address] [place] Immature granulocytes/100 WBC (Bld) 1.6 % Normal [facility] Comment on above: Order Comment: Speci men Type: BLOOD SPECIMENOrdering Facility: [facility] Address: [address] [place] [address] Performed By: #### 5 7021-8 ####[facility] LABORATORYCLIA [id number] [address] Lymphocytes (Bld) [#/Vol] 1.38 10*3/uL Normal 1.00-4.00 [facility] Comment on above: Order Comment: Speci men Type: BLOOD SPECIMENOrdering Facility: [facility] Address: [address] [place] [address] Performed By: #### 5 7021-8 ####[facility] LABORATORYCLIA [id number] [address] Lymphocytes/100 WBC (Bld) 11.9 % Normal [facility] Comment on above: Order Comment: Speci men Type: BLOOD SPECIMENOrdering Facility: [facility] Address: [address] [place] [address] Performed By: #### 5 7021-8 ####[facility] LABORATORYCLIA [id number] [address] MCH (RBC) [Entitic mass] 28.2 pg Normal 26.0-34.0 [facility] Comment on above: Order Comment: Speci men Type: BLOOD SPECIMENOrdering Facility: [facility] Address: [address] [place] [address] Performed By: #### 5 7021-8 ####[facility] LABORATORYCLIA [id number] [address] MCHC (RBC) [Mass/Vol] 32.1 g/dL Normal 30.5-36.0 [facility] Comment on above: Order Comment: Speci men Type: BLOOD SPECIMENOrdering Facility: [facility] Address: [address] [place] [address] Performed By: #### 5 7021-8 ####[facility] LABORATORYCLIA [id number] [address] MCV (RBC) [Entitic vol] 87.9 fL Normal 80.0-100.0 [facility] Comment on above: Order Comment: Speci men Type: BLOOD SPECIMENOrdering Facility: [facility] Address: [address] [place] [address] Performed By: #### 5 7021-8 ####[facility] LABORATORYCLIA [id number] [place] [address] [place] Monocytes (Bld) [#/Vol] 0.77 10*3/uL Normal <0.87 [facility] Comment on above: Order Comment: Speci men Type: BLOOD SPECIMENOrdering Facility: [facility] Address: [address] [place] [address] Performed By: #### 5 7021-8 ####[facility] LABORATORYCLIA [id number] [address] [place] Monocytes/100 WBC (Bld) 6.6 % Normal [facility] [facility] Comment on above: Order Comment: Speci men Type: BLOOD SPECIMENOrdering Facility: [facility] Address: [address] [place] [address] Performed By: #### 5 7021-8 ####VILLARRE[facility] LABORATORYCLIA [id number] [place] [address] [place] Neutrophils (Bld) [#/Vol] 9.10 10*3/uL High 1.45-7.50 [facility] Comment on above: Order Comment: Speci men Type: BLOOD SPECIMENOrdering Facility: [facility] Address: [address] [place] [address] Performed By: #### 5 7021-8 ####VILLARREAL LABORATORYCLIA [id number] [place] [address] [place] Neutrophils/100 WBC (Bld) 78.5 % Normal [facility] Comment on above: Order Comment: Speci men Type: BLOOD SPECIMENOrdering Facility: [facility] Address: [address] [place] [address] Performed By: #### 5 7021-8 ####VILLARREAL LABORATORYCLIA [id number] [place] [address] [place] Nucleated RBC (Bld) [#/Vol] 10*3/uL Normal <0.01 [facility] Comment on above: Order Comment: Speci men Type: BLOOD SPECIMENOrdering Facility: [facility] Address: [address] [place] [address] Performed By: #### 5 7021-8 ####VILLARREAL LABORATORYCLIA [id number] [address] [place] Nucleated RBC/100 WBC (Bld) [Ratio] 0.0 /100 WBC Normal [facility] Comment on above: Order Comment: Speci men Type: BLOOD SPECIMENOrdering Facility: [facility] Address: [address] [place] [address] Performed By: #### 5 7021-8 ####VILLARREAL LABORATORYCLIA [id number] [address] Platelet mean volume (Bld) [Entitic vol] 8.4 fL Low 9.0-12.7 [facility] Comment on above: Order Comment: Speci men Type: BLOOD SPECIMENOrdering Facility: [facility] Address: [address] [place] [address] Performed By: #### 5 7021-8 ####VILLARREAL LABORATORYCLIA [id number] [address] [place] Platelets (Bld) [#/Vol] 577 10*3/uL High 150-400 [facility] Comment on above: Order Comment: Speci men Type: BLOOD SPECIMENOrdering Facility: [facility] Address: [address] [place] [address] Performed By: #### 5 7021-8 ####VILLARREAL LABORATORYCLIA [id number] [address] [place] RBC (Bld) [#/Vol] 2.73 10*6/uL Low 3.90-5.20 [facility] Comment on above: Order Comment: Speci men Type: BLOOD SPECIMENOrdering Facility: [facility] Address: [address] [place] [address] Performed By: #### 5 7021-8 ####VILLARREAL LABORATORYCLIA [id number] [place] [address] [place] WBC (Bld) [#/Vol] 11.60 10*3/uL High 3.70-11.[address] [facility] Comment on above: Order Comment: Speci men Type: BLOOD SPECIMENOrdering Facility: [facility] Address: [address] [place] [address] Performed By: #### 5 7021-8 ####[facility] LABORATORYCLIA [id number] [place] [id number] [facility] [place] CONSULT PROGon 12-08-2024 CONSULT PRO Normal [facility] CONSULT PROG Normal [facility] CONSULT [facility] Comprehensive metabolic 2000 panelon 12-08-2024 Albumin [Mass/Vol] 2.6 g/dL Low 3.9-4.9 [facility] Comment on above: Order Comment: Speci men Type: BLOOD SPECIMENOrdering Facility: [facility] Address: [address] [place] [address] Performed By: #### 2 4323-8, 25419-4 ####[facility] LABORATORYCLIA [id number] [place] [address] [place] ALP [Catalytic activity/Vol] 106 U/L Normal 34-123 [facility] Comment on above: Order Comment: Speci men Type: BLOOD SPECIMENOrdering Facility: [facility] Address: [address] [place] [address] Performed By: #### 2 4323-8, 32742-4 ####[facility] LABORATORYCLIA [id number] [place] [id number] [place] ALT [Catalytic activity/Vol] U/L Low 7-38 [facility] Comment on above: Order Comment: Speci men Type: BLOOD SPECIMENOrdering Facility: [facility] Address: [address] [place] [address] Performed By: #### 2 4323-8, 03676-8 ####VILLARREAL LABORATORYCLIA [id number] [place] [address] [place] Anion gap [Moles/Vol] 8 mmol/L Normal 8-15 [facility] Comment on above: Order Comment: Speci men Type: BLOOD SPECIMENOrdering Facility: [facility] Address: [address] [place] [address] Performed By: #### 2 4323-8, ####VILLARREAL LABORATORYCLIA [id number] [place] [address] [place] AST [Catalytic activity/Vol] 20 U/L Normal 13-35 [facility] Comment on above: Order Comment: Speci men Type: BLOOD SPECIMENOrdering Facility: [facility] Address: [address] [facility] [place] [id number] Performed By: #### 2 4322-8, ####VILLARREAL LABORATORYCLIA [id number] [place] [address] [place] Bilirubin [Mass/Vol] mg/dL Low 0.2-1.[address] [facility] Comment on above: Order Comment: Speci men Type: BLOOD SPECIMENOrdering Facility: [facility] Address: [address] [facility] [place] [address] Performed By: #### 2 8, ####VILLARREAL LABORATORYCLIA [id number] [place] [address] [place] Calcium [Mass/Vol] 9.0 mg/dL Normal 8.5-10.2 [facility] Comment on above: Order Comment: Speci men Type: BLOOD SPECIMENOrdering Facility: [facility] Address: [address] [place] [id number] Performed By: #### 2 4323-8, ####VILLARREAL LABORATORYCLIA [id number] [place] [id number] [place] Chloride [Moles/Vol] 99 mmol/L Normal 98-[address] [facility] Comment on above: Order Comment: Speci men Type: BLOOD SPECIMENOrdering Facility: [facility] Address: [facility] [place] [phone] Performed By: #### 2 432-8, ####VILLARREAL LABORATORYCLIA [id number] [place] [address] [place] CO2 [Moles/Vol] 27 mmol/L Normal 22-30 [facility] Comment on above: Order Comment: Speci men Type: BLOOD SPECIMENOrdering Facility: [facility] Address: [address] [place] [address] Performed By: #### 2 4323-8, ####VILLARREAL LABORATORYCLIA [id number] [place] [id number] [place] Creatinine [Mass/Vol] 0.86 mg/dL Normal 0.58-0.96 [facility] Comment on above: Order Comment: Fan halina Type: BLOOD SPECIMENOrdering Facility: [facility] Address: [address] [place] [address] Performed By: #### 2 4323-8, ####VILLARREAL LABORATORYCLIA [id number] [place] [id number] [facility] Creatinine and Glomerular filtration rate.predicted panel (S/P/Bld) 65 mL/min/1.73m??? Normal >=60 [facility] Comment on above: Order Comment: Fan halina Type: BLOOD SPECIMENOrdering Facility: [facility] Address: [address] [place] [address] Result Comment: Hilda mated Glomerular Filtration Rate (eGFR) is calculated using the 2020 CKD-EPI creatinine equation. This equation utilizes serum creatinine, sex, and age as parameters. The creatinine assay has traceable calibration to isotope dilution-mass spectrometry. Refer to KDIGO guidelines for clinical interpretation. In patients with unstable renal function, e.g. those with acute kidney injury, the eGFR may not accurately reflect actual GFR. Performed By: #### 2 4323-8, ####VILLARREAL LABORATORYCLIA [id number] [place] [id number] [place] Glucose [Mass/Vol] 170 mg/dL High 74-99 [facility] Comment on above: Order Comment: Fan meade Type: BLOOD SPECIMENOrdering Facility: [facility] Address: [address] [place] [address] Result Comment: The [place] Diabetes Association (ADA) provides guidance for cutoff values for fasting glucose and random glucose. The ADA defines fasting as no caloric intake for at least 8 hours. Fasting plasma glucose results between 100 to 125 mg/dL indicate increased risk for diabetes (prediabetes).Fasting plasma glucose results greater than or equal to 126 mg/dL meet the criteria for diagnosis of diabetes. In the absence of unequivocal hyperglycemia, results should be confirmed by repeat testing. In a patient with classic symptoms of hyperglycemia or hyperglycemic crisis, random plasma glucose results greater than or equal to 200 mg/dL meet the criteria for diagnosis of diabetes.Reference: Standards of Medical Care in Diabetes 2016, [place] Diabetes Association. Diabetes Care. 2016.39(Suppl 1). Performed By: #### 2 8, ####VILLARREAL LABORATORYCLIA [id number] [place] [address] [place] Potassium [Moles/Vol] 4.5 mmol/L Normal 3.7-5.1 [facility] Comment on above: Order Comment: Fan meade Type: BLOOD SPECIMENOrdering Facility: [facility] Address: [address] [place], [place] [address] Performed By: #### 2 4323-06, ####VILLARREAL LABORATORYCLIA [id number] [place] [address] [place] Protein [Mass/Vol] 5.3 g/dL Low 6.3-8.0 [facility] Comment on above: Order Comment: Fan meade Type: BLOOD SPECIMENOrdering Facility: [facility] Address: [address] [place] [address] Performed By: #### 2 4323-06, ####VILLARREAL LABORATORYCLIA [id number] [place] [id number] [place] Sodium [Moles/Vol] 134 mmol/L Low 136-144 [facility] Comment on above: Order Comment: Fan meade Type: BLOOD SPECIMENOrdering Facility: [facility] Address: [address] [place] [phone] Performed By: #### 2 4323-06, ####VILLARREAL LABORATORYCLIA [id number] [place] [id number] [place] Urea nitrogen [Mass/Vol] 45 mg/dL High 7-21 [facility] Comment on above: Order Comment: Fan meade Type: BLOOD SPECIMENOrdering Facility: [facility] Address: [address] [place], [place] [address] Performed By: #### 2 4323-8, 15690-3 ####VILLARREAL LABORATORYCLIA [id number] [place] [address] [place] Magnesium SerPl-mCncon 12-08 Magnesium [Mass/Vol] 1.7 mg/dL Normal 1.7-2.[address] [facility] Comment on above: Order Comment: Speci men Type: BLOOD SPECIMENOrdering Facility: [facility] Address: [address] [place] [address] Performed By: #### 2 4323-8, 41021-7 ####VILLARREAL LABORATORYCLIA [id number] [address] [place] OCCULT BLD EXAM-DIAGon 12-08 OCCULT BLD EXAM-DIAG Negative Normal [facility] Comment on above: Performed By: #### O BDX ####VILLARREAL LABORATORYCLIA [id number] [place] [address] [place] ALLIED HEALTHon 12-07-2024 ALLIED HEALTH [facility] CASE MANAGEMon 12-07-2024 CASE MANAGEM [facility] CBC W Auto Differential pane l (Bld)on 12-07-2024 Basophils (Bld) [#/Vol] 10*3/uL Normal <0.11 [facility] Comment on above: Order Comment: Speci men Type: BLOOD SPECIMENOrdering Facility: [facility] Address: [address] [place] [address] Performed By: #### 5 7021-8 ####VILLARREAL LABORATORYCLIA [id number] [address] [place] Basophils/100 WBC (Bld) 0.2 % Normal [facility] Comment on above: Order Comment: Speci men Type: BLOOD SPECIMENOrdering Facility: [facility] Address: [facility] [place] [address] Performed By: #### 5 7021-8 ####VILLARREAL LABORATORYCLIA [id number] [place] [address] [place] Differential cell count method Nom (Bld) Auto Normal [facility] Comment on above: Order Comment: Speci men Type: BLOOD SPECIMENOrdering Facility: [facility] Address: [address] [place] [address] Performed By: #### 5 7021-8 ####VILLARREAL LABORATORYCLIA [id number] [place] [address] [place] Eosinophils (Bld) [#/Vol] 0.09 10*3/uL Normal <0.46 [facility] Comment on above: Order Comment: Speci men Type: BLOOD SPECIMENOrdering Facility: [facility] Address: [address] [place] [address] Performed By: #### 5 7021-8 ####VILLARREAL LABORATORYCLIA [id number] [address] Eosinophils/100 WBC (Bld) 0.8 % Normal [facility] Comment on above: Order Comment: Speci men Type: BLOOD SPECIMENOrdering Facility: [facility] Address: [address] [place] [address] Performed By: #### 5 7021-8 ####VILLARREAL LABORATORYCLIA [id number] [address] [place] Erythrocyte distribution width (RBC) [Ratio] 16.0 % High 11.5-15.0 [facility] Comment on above: Order Comment: Speci men Type: BLOOD SPECIMENOrdering Facility: [facility] Address: [address] [place] [address] Performed By: #### 5 7021-8 ####VILLARREAL LABORATORYCLIA [id number] [address] [place] Hematocrit (Bld) [Volume fraction] 25.2 % Low 36.0-46.0 [facility] Comment on above: Order Comment: Speci men Type: BLOOD SPECIMENOrdering Facility: [facility] Address: [address] [place] [address] Performed By: #### 5 7021-8 ####VILLARREAL LABORATORYCLIA [id number] [address] [place] Hemoglobin (Bld) [Mass/Vol] 8.2 g/dL Low 11.5-15.5 [facility] Comment on above: Order Comment: Speci men Type: BLOOD SPECIMENOrdering Facility: [facility] Address: [address] [place] [address] Performed By: #### 5 7021-8 ####VILLARREAL LABORATORYCLIA [id number] [address] Immature granulocytes (Bld) [#/Vol] 0.18 10*3/uL High <0.10 [facility] Comment on above: Order Comment: Speci men Type: BLOOD SPECIMENOrdering Facility: [facility] Address: [address] [place] [address] Performed By: #### 5 7021-8 ####VILLARREAL LABORATORYCLIA [id number] [address] Immature granulocytes/100 WBC (Bld) 1.6 % Normal [facility] Comment on above: Order Comment: Speci men Type: BLOOD SPECIMENOrdering Facility: [facility] Address: [address] [place] [address] Performed By: #### 5 7021-8 ####VILLARREAL LABORATORYCLIA [id number] [address] [place] Lymphocytes (Bld) [#/Vol] 0.83 10*3/uL Low 1.00-4.00 [facility] Comment on above: Order Comment: Speci men Type: BLOOD SPECIMENOrdering Facility: [facility] Address: [address] [place] [address] Performed By: #### 5 7021-8 ####VILLARREAL LABORATORYCLIA [id number] [address] Lymphocytes/100 WBC (Bld) 7.6 % Normal [facility] Comment on above: Order Comment: Speci men Type: BLOOD SPECIMENOrdering Facility: [facility] Address: [address] [place] [address] Performed By: #### 5 7021-8 ####VILLARREAL LABORATORYCLIA [id number] [address] [place] MCH (RBC) [Entitic mass] 28.5 pg Normal 26.0-34.0 [facility] Comment on above: Order Comment: Speci men Type: BLOOD SPECIMENOrdering Facility: [facility] Address: [address] [place] [address] Performed By: #### 5 7021-8 ####VILLARREAL LABORATORYCLIA [id number] [place] [address] [place] MCHC (RBC) [Mass/Vol] 32.5 g/dL Normal 30.5-36.0 [facility] Comment on above: Order Comment: Speci men Type: BLOOD SPECIMENOrdering Facility: [facility] Address: [address] [place] [address] Performed By: #### 5 7021-8 ####VILLARRE[facility] LABORATORYCLIA [id number] [address] [place] MCV (RBC) [Entitic vol] 87.5 fL Normal 80.0-100.0 [facility] Comment on above: Order Comment: Speci men Type: BLOOD SPECIMENOrdering Facility: [facility] Address: [address] [place] [address] Performed By: #### 5 7021-8 ####VILLARREAL LABORATORYCLIA [id number] [place] [address] [place] Monocytes (Bld) [#/Vol] 0.81 10*3/uL Normal <0.87 [facility] Comment on above: Order Comment: Speci men Type: BLOOD SPECIMENOrdering Facility: [facility] Address: [address] [place] [address] Performed By: #### 5 7021-8 ####VILLARREAL LABORATORYCLIA [id number] [address] [place] Monocytes/100 WBC (Bld) 7.4 % Normal [facility] Comment on above: Order Comment: Speci men Type: BLOOD SPECIMENOrdering Facility: [facility] Address: [address] [place] [address] Performed By: #### 5 7021-8 ####VILLARREAL LABORATORYCLIA [id number] [place] [address] [place] Neutrophils (Bld) [#/Vol] 8.99 10*3/uL High 1.45-7.50 [facility] Comment on above: Order Comment: Speci men Type: BLOOD SPECIMENOrdering Facility: [facility] Address: [address] [place] [address] Performed By: #### 5 7021-8 ####VILLARREAL LABORATORYCLIA [id number] [address] [place] Neutrophils/100 WBC (Bld) 82.4 % Normal [facility] Comment on above: Order Comment: Speci men Type: BLOOD SPECIMENOrdering Facility: [facility] Address: [address] [place] [address] Performed By: #### 5 7021-8 ####VILLARREAL LABORATORYCLIA [id number] [place] [address] [place] Nucleated RBC (Bld) [#/Vol] 10*3/uL Normal <0.01 [facility] Comment on above: Order Comment: Speci men Type: BLOOD SPECIMENOrdering Facility: [facility] Address: [address] [place] [address] Performed By: #### 5 7021-8 ####VILLARREAL LABORATORYCLIA [id number] [address] [place] [facility] Nucleated RBC/100 WBC (Bld) [Ratio] 0.0 /100 WBC Normal [facility] Comment on above: Order Comment: Speci men Type: BLOOD SPECIMENOrdering Facility: [facility] Address: [address] [place] [address] Performed By: #### 5 7021-8 ####VILLARREAL LABORATORYCLIA [id number] [place] [address] [place] Platelet mean volume (Bld) [Entitic vol] 8.3 fL Low 9.0-12.7 [facility] Comment on above: Order Comment: Speci men Type: BLOOD SPECIMENOrdering Facility: [facility] Address: [address] [place] [address] Performed By: #### 5 7021-8 ####VILLARREAL LABORATORYCLIA [id number] [address] Platelets (Bld) [#/Vol] 564 10*3/uL High 150-400 [facility] Comment on above: Order Comment: Speci men Type: BLOOD SPECIMENOrdering Facility: [facility] Address: [address] [place] [address] Performed By: #### 5 7021-8 ####[facility] LABORATORYCLIA [id number] [address] [place] RBC (Bld) [#/Vol] 2.88 10*6/uL Low 3.90-5.20 [facility] Comment on above: Order Comment: Speci men Type: BLOOD SPECIMENOrdering Facility: [facility] Address: [address] [place] [address] Performed By: #### 5 7021-8 ####[facility] LABORATORYCLIA [id number] [address] WBC (Bld) [#/Vol] 10.92 10*3/uL Normal 3.70-11.[address] [facility] Comment on above: Order Comment: Speci men Type: BLOOD SPECIMENOrdering Facility: [facility] Address: [address] [place] [address] Performed By: #### 5 7021-8 ####[facility] LABORATORYCLIA [id number] [address] CONSULTon 12-07-2024 CONSULT Normal [facility] CONSULT PROGon 12-07-2024 CONSULT PROG Normal [facility] CONSULT PROG Normal [facility] CONSULT PROG Normal [facility] CONSULT PRO Normal [facility] CRP SerPl-mCncon 12-07-2024 CRP [Mass/Vol] 3.6 mg/dL High <0.9 [facility] Comment on above: Order Comment: Speci men Type: BLOOD SPECIMENOrdering Facility: [facility] Address: [address] [place] [address] Performed By: #### 1 988-5, 11216-5, 17121-5, 3040-3 ####[facility] LABORATORYCLIA [id number] [address] Comprehensive metabolic 2000 panelon 12-07-2024 Albumin [Mass/Vol] 2.6 g/dL Low 3.9-4.9 [facility] Comment on above: Order Comment: Speci men Type: BLOOD SPECIMENOrdering Facility: [facility] Address: [address] [place] [address] Performed By: #### 1 988-5, 78210-9, 06883-4, 3040-3 ####VILLARRE[facility] LABORATORYCLIA [id number] [place] [address] [place] [facility] ALP [Catalytic activity/Vol] 111 U/L Normal 34-123 [facility] Comment on above: Order Comment: Speci men Type: BLOOD SPECIMENOrdering Facility: [facility] Address: [address] [place] [address] Performed By: #### 1 988-5, 47763-4, 74837-8, 3040-3 ####VILL[facility] LABORATORYCLIA [id number] [address] [place] [facility] ALT [Catalytic activity/Vol] U/L Low 7-38 [facility] Comment on above: Order Comment: Speci men Type: BLOOD SPECIMENOrdering Facility: [facility] Address: [address] [place] [address] Performed By: #### 1 988-5, 08964-5, 27356-7, 3040-3 ####VILLARRE[facility] LABORATORYCLIA [id number] [place] [address] [facility] Anion gap [Moles/Vol] 9 mmol/L Normal 8-15 [facility] Comment on above: Order Comment: Speci men Type: BLOOD SPECIMENOrdering Facility: [facility] Address: [address] [place] [address] Performed By: #### 1 988-5, 90914-8, 47050-0, 3040-3 ####VILLARRE[facility] LABORATORYCLIA [id number] [place] [address] [facility] AST [Catalytic activity/Vol] 29 U/L Normal 13-35 [facility] Comment on above: Order Comment: Speci men Type: BLOOD SPECIMENOrdering Facility: [facility] Address: [address] [place] [address] Performed By: #### 1 988-5, 27510-0, 24377-1, 3040-3 ####VILLARREAL LABORATORYCLIA [id number] [place] [address] [place] Bilirubin [Mass/Vol] mg/dL Low 0.2-1.[address] [facility] Comment on above: Order Comment: Speci men Type: BLOOD SPECIMENOrdering Facility: [facility] Address: [address] [place] [address] [place] [address] Performed By: #### 1 988-5, 80141-9, 92628-5, 0-3 ####VILLARREAL LABORATORYCLIA [id number] [place] [address] [place] Calcium [Mass/Vol] 9.3 mg/dL Normal 8.5-10.2 [facility] Comment on above: Order Comment: Speci men Type: BLOOD SPECIMENOrdering Facility: [facility] Address: [address] [place] [address] Performed By: #### 1 988-5, 44098-9, 09450-1, 3040-3 ####VILLARREAL LABORATORYCLIA [id number] [place] [address] [place] Chloride [Moles/Vol] 98 mmol/L Normal 98-[address] [facility] Comment on above: Order Comment: Speci men Type: BLOOD SPECIMENOrdering Facility: [facility] Address: [address] [place] [address] [place] [address] Performed By: #### 1 988-5, 78034-2, 64517-2, 3040-3 ####VILLARREAL LABORATORYCLIA [id number] [place] [address] [place] CO2 [Moles/Vol] 28 mmol/L Normal 22-30 [facility] Comment on above: Order Comment: Speci men Type: BLOOD SPECIMENOrdering Facility: [facility] Address: [address] [place] [address] [place] [address] Performed By: #### 1 988-5, 63025-6, 02123-4, 3040-3 ####VILLARREAL LABORATORYCLIA [id number] [place] [address] [place] Creatinine [Mass/Vol] 0.76 mg/dL Normal 0.58-0.96 [facility] Comment on above: Order Comment: Fan meade Type: BLOOD SPECIMENOrdering Facility: [facility] Address: [address] [place] [address] Performed By: #### 1 988-5, 25984-8, 74567-4, 0-3 ####[facility]ORATORYCLIA [id number] [place] [id number] [facility] Creatinine and Glomerular filtration rate.predicted panel (S/P/Bld) 75 mL/min/1.73m??? Normal >=60 [facility] Comment on above: Order Comment: [facility] Type: BLOOD SPECIMENOrdering Facility: [facility] Address: [address] [place] [address] Result Comment: Hilda mated Glomerular Filtration Rate (eGFR) is calculated using the 2020 CKD-EPI creatinine equation. This equation utilizes serum creatinine, sex, and age as parameters. The creatinine assay has traceable calibration to isotope dilution-mass spectrometry. Refer to KDIGO guidelines for clinical interpretation. In patients with unstable renal function, e.g. those with acute kidney injury, the eGFR may not accurately reflect actual GFR. Performed By: #### 1 988-5, 61463-5, 24857-0, 0-3 ####[facility] LABORATORYCLIA [id number] [place] [id number] [place] [facility] Glucose [Mass/Vol] 260 mg/dL High 74-99 [facility] Comment on above: Order Comment: Fan meade Type: BLOOD SPECIMENOrdering Facility: [facility] Address: [address] [place] [address] Result Comment: The [place] Diabetes Association (ADA) provides guidance for cutoff values for fasting glucose and random glucose. The ADA defines fasting as no caloric intake for at least 8 hours. Fasting plasma glucose results between 100 to 125 mg/dL indicate increased risk for diabetes (prediabetes).Fasting plasma glucose results greater than or equal to 126 mg/dL meet the criteria for diagnosis of diabetes. In the absence of unequivocal hyperglycemia, results should be confirmed by repeat testing. In a patient with classic symptoms of hyperglycemia or hyperglycemic crisis, random plasma glucose results greater than or equal to 200 mg/dL meet the criteria for diagnosis of diabetes.Reference: Standards of Medical Care in Diabetes 2016, [place] Diabetes Association. Diabetes Care. 2016.39(Suppl 1). Performed By: #### 1 988-5, 41382-4, 91008-4, 3040-3 ####[facility] LABORATORYCLIA [id number] [place] [address] [place] Potassium [Moles/Vol] 4.5 mmol/L Normal 3.7-5.1 [facility] Comment on above: Order Comment: Speci men Type: BLOOD SPECIMENOrdering Facility: [facility] Address: [address] [place] [address] Performed By: #### 1 988-5, 43926-9, 16899-7, 0-3 ####[facility] LABORATORYCLIA [id number] [place] [address] [place] Protein [Mass/Vol] 5.5 g/dL Low 6.3-8.0 [facility] Comment on above: Order Comment: Speci men Type: BLOOD SPECIMENOrdering Facility: [facility] Address: [address] [place] [address] Performed By: #### 1 988-5, 75949-5, 63601-2, 0-3 ####[facility] LABORATORYCLIA [id number] [place] [id number] [place] Sodium [Moles/Vol] 135 mmol/L Low 136-144 [facility] Comment on above: Order Comment: Speci men Type: BLOOD SPECIMENOrdering Facility: [facility] Address: [address] [place] [address] Performed By: #### 1 988-5, 74042-2, 18326-8, 3040-3 ####[facility] LABORATORYCLIA [id number] [place] [id number] [place] Urea nitrogen [Mass/Vol] 43 mg/dL High 7-21 [facility] Comment on above: Order Comment: Speci men Type: BLOOD SPECIMENOrdering Facility: [facility] Address: [address] [place] [address] Performed By: #### 1 988-5, 57123-4, 62070-9, 3040-3 ####[facility]ORATORYCLIA [id number] [place] [address] [place] ESR Westergren method (Bld) [Velocity]on 12-07-2024 ESR (Bld) [Velocity] 103 mm/h High 0-[address] [facility] Comment on above: Order Comment: Speci men Type: BLOOD SPECIMENOrdering Facility: [facility] Address: [address] [place] [address] Performed By: #### 4 537-7 ####[facility] LABCLIA [id number] [place] [address] [place] Folate SerPl-mCncon 12-07-19 25 Folate [Mass/Vol] 7.7 ng/mL Normal >4.7 [facility] Comment on above: Order Comment: Speci men Type: BLOOD SPECIMENOrdering Facility: [facility] Address: [address] [place] [address] Performed By: #### 2 284-8, 2132-9 ####[facility] LABORATORYCLIA [id number] [place] [address] [place] Lipase SerPl-cCncon 12-07-19 25 Lipase [Catalytic activity/Vol] 50 U/L Normal 16-61 [facility] Comment on above: Order Comment: Speci men Type: BLOOD SPECIMENOrdering Facility: [facility] Address: [address] [place] [address] Performed By: #### 1 988-5, 46410-0, 98238-3, 3040-3 ####[facility]ORATORYCLIA [id number] [address] [place] Magnesium SerPl-mCncon 12-07 Magnesium [Mass/Vol] 1.7 mg/dL Normal 1.7-2.[address] [facility] Comment on above: Order Comment: Speci men Type: BLOOD SPECIMENOrdering Facility: [facility] Address: [address] [place] [id number] Performed By: #### 1 988-5, 89687-1, 76421-9, 3040-3 ####[facility] LABORATORYCLIA [id number] [place] [address] [place] US DVT LOWER BILon US DVT LOWER RADHA Normal [facility] Vit B12 SerPl-mCncon 025 Cobalamin (Vitamin B12) [Mass/Vol] 400 pg/mL Normal 232-1245 [facility] Comment on above: Order Comment: Speci men Type: BLOOD SPECIMENOrdering Facility: [facility] Address: [address] [place] [address] Performed By: #### 2 284-8, 2132-9 ####[facility] LABORATORYCLIA [id number] [place] [address] [place] XR ABD 2V SUPINE W UPR/DECUB /CTLon 12-07-2024 XR ABD 2V SUPINE W UPR/DECUB/CTL Normal [facility] CASE MANAGEMon 12-06-2024 CASE MANAGEM Normal [facility] CBC W Auto Differential pane l (Bld)on 12-06-2024 Basophils (Bld) [#/Vol] 0.03 10*3/uL Normal <0.11 [facility] Comment on above: Order Comment: Speci men Type: BLOOD SPECIMENOrdering Facility: [facility] Address: [address] [place] [address] Performed By: #### 5 7021-8 ####[facility] LABORATORYCLIA [id number] [address] OF [facility] Basophils/100 WBC (Bld) 0.2 % Normal [facility] Comment on above: Order Comment: Speci men Type: BLOOD SPECIMENOrdering Facility: [facility] Address: [address] [place] [address] Performed By: #### 5 7021-8 ####[facility] LABORATORYCLIA [id number] [address] [place] Differential cell count method Nom (Bld) Auto Normal [facility] Comment on above: Order Comment: Speci men Type: BLOOD SPECIMENOrdering Facility: [facility] Address: [address] [place] [address] Performed By: #### 5 7021-8 ####[facility] LABORATORYCLIA [id number] [place] [address] [place] Eosinophils (Bld) [#/Vol] 0.09 10*3/uL Normal <0.46 [facility] Comment on above: Order Comment: Speci men Type: BLOOD SPECIMENOrdering Facility: [facility] Address: [address] [place] [address] Performed By: #### 5 7021-8 ####[facility] LABORATORYCLIA [id number] [place] [address] [place] Eosinophils/100 WBC (Bld) 0.6 % Normal [facility] Comment on above: Order Comment: Speci men Type: BLOOD SPECIMENOrdering Facility: [facility] Address: [address] [place] [address] Performed By: #### 5 7021-8 ####[facility] LABORATORYCLIA [id number] [place] [address] [place] Erythrocyte distribution width (RBC) [Ratio] 15.9 % High 11.5-15.0 [facility] Comment on above: Order Comment: Speci men Type: BLOOD SPECIMENOrdering Facility: [facility] Address: [address] [place] [address] Performed By: #### 5 7021-8 ####[facility] LABORATORYCLIA [id number] [address] [place] Hematocrit (Bld) [Volume fraction] 25.5 % Low 36.0-46.0 [facility] Comment on above: Order Comment: Speci men Type: BLOOD SPECIMENOrdering Facility: [facility] Address: [address] [place] [address] Performed By: #### 5 7021-8 ####[facility] LABORATORYCLIA [id number] [place] [address] [place] Hemoglobin (Bld) [Mass/Vol] 8.3 g/dL Low 11.5-15.5 [facility] Comment on above: Order Comment: Speci men Type: BLOOD SPECIMENOrdering Facility: [facility] Address: [address] [place] [address] Performed By: #### 5 7021-8 ####[facility] LABORATORYCLIA [id number] [address] Immature granulocytes (Bld) [#/Vol] 0.15 10*3/uL High <0.10 [facility] Comment on above: Order Comment: Speci men Type: BLOOD SPECIMENOrdering Facility: [facility] Address: [address] [place] [address] Performed By: #### 5 7021-8 ####[facility] LABORATORYCLIA [id number] [address] Immature granulocytes/100 WBC (Bld) 1.0 % Normal [facility] Comment on above: Order Comment: Speci men Type: BLOOD SPECIMENOrdering Facility: [facility] Address: [address] [place] [address] Performed By: #### 5 7021-8 ####[facility] LABORATORYCLIA [id number] [address] STATES [facility] Lymphocytes (Bld) [#/Vol] 0.98 10*3/uL Low 1.00-4.00 [facility] Comment on above: Order Comment: Speci men Type: BLOOD SPECIMENOrdering Facility: [facility] Address: [address] [place] [address] Performed By: #### 5 7021-8 ####[facility] LABORATORYCLIA [id number] [address] Lymphocytes/100 WBC (Bld) 6.7 % Normal [facility] Comment on above: Order Comment: Speci men Type: BLOOD SPECIMENOrdering Facility: [facility] Address: [address] [place] [address] Performed By: #### 5 7021-8 ####[facility] LABORATORYCLIA [id number] [address] [place] MCH (RBC) [Entitic mass] 27.9 pg Normal 26.0-34.0 [facility] Comment on above: Order Comment: Speci men Type: BLOOD SPECIMENOrdering Facility: [facility] Address: [address] [place] [address] Performed By: #### 5 7021-8 ####[facility] LABORATORYCLIA [id number] [address] STATES [facility] MCHC (RBC) [Mass/Vol] 32.5 g/dL Normal 30.5-36.0 [facility] Comment on above: Order Comment: Speci men Type: BLOOD SPECIMENOrdering Facility: [facility] Address: [address] [place] [address] Performed By: #### 5 7021-8 ####[facility] LABORATORYCLIA [id number] [address] [place] MCV (RBC) [Entitic vol] 85.9 fL Normal 80.0-100.0 [facility] Comment on above: Order Comment: Speci men Type: BLOOD SPECIMENOrdering Facility: [facility] Address: [address] [place] [address] Performed By: #### 5 7021-8 ####[facility] LABORATORYCLIA [id number] [place] [address] [place] Monocytes (Bld) [#/Vol] 0.94 10*3/uL High <0.87 [facility] Comment on above: Order Comment: Speci men Type: BLOOD SPECIMENOrdering Facility: [facility] Address: [address] [place] [address] Performed By: #### 5 7021-8 ####[facility] LABORATORYCLIA [id number] [address] Monocytes/100 WBC (Bld) 6.5 % Normal [facility] Comment on above: Order Comment: Speci men Type: BLOOD SPECIMENOrdering Facility: [facility] Address: [address] [place] [address] Performed By: #### 5 7021-8 ####[facility] LABORATORYCLIA [id number] [place] [address] [place] Neutrophils (Bld) [#/Vol] 12.37 10*3/uL High 1.45-7.50 [facility] Comment on above: Order Comment: Speci men Type: BLOOD SPECIMENOrdering Facility: [facility] Address: [address] [place] [address] Performed By: #### 5 7021-8 ####[facility] LABORATORYCLIA [id number] [address] Neutrophils/100 WBC (Bld) 85.0 % Normal [facility] Comment on above: Order Comment: Speci men Type: BLOOD SPECIMENOrdering Facility: [facility] Address: [address] [place] [address] Performed By: #### 5 7021-8 ####[facility] LABORATORYCLIA [id number] [place] [address] [place] Nucleated RBC (Bld) [#/Vol] 10*3/uL Normal <0.01 [facility] Comment on above: Order Comment: Speci men Type: BLOOD SPECIMENOrdering Facility: [facility] Address: [address] [place] [address] Performed By: #### 5 7021-8 ####[facility] LABORATORYCLIA [id number] [place] [address] [place] Nucleated RBC/100 WBC (Bld) [Ratio] 0.0 /100 WBC Normal [facility] Comment on above: Order Comment: Speci men Type: BLOOD SPECIMENOrdering Facility: [facility] Address: [address] [place] [address] Performed By: #### 5 7021-8 ####[facility] LABORATORYCLIA [id number] [place] [address] [place] Platelet mean volume (Bld) [Entitic vol] 8.3 fL Low 9.0-12.7 [facility] Comment on above: Order Comment: Speci men Type: BLOOD SPECIMENOrdering Facility: [facility] Address: [address] [place] [address] Performed By: #### 5 7021-8 ####[facility] LABORATORYCLIA [id number] [place] [address] [place] Platelets (Bld) [#/Vol] 602 10*3/uL High 150-400 [facility] Comment on above: Order Comment: Speci men Type: BLOOD SPECIMENOrdering Facility: [facility] Address: [address] [place], [place] [address] Performed By: #### 5 7021-8 ####[facility] LABORATORYCLIA [id number] [address] [place] RBC (Bld) [#/Vol] 2.97 10*6/uL Low 3.90-5.20 [facility] Comment on above: Order Comment: Speci men Type: BLOOD SPECIMENOrdering Facility: [facility] Address: [address] [place] [address] Performed By: #### 5 7021-8 ####[facility]ORATORYCLIA [id number] [address] WBC (Bld) [#/Vol] 14.56 10*3/uL High 3.70-11.[address] [facility] Comment on above: Order Comment: Speci men Type: BLOOD SPECIMENOrdering Facility: [facility] Address: [address] [place] [address] Performed By: #### 5 7021-8 ####[facility]ORATORYCLIA [id number] [address] [place] CONSULTon 12-06-2024 CONSULT Normal [facility] CONSULT Normal [facility] CONSULT PROGon 12-06-2024 CONSULT PROG [facility] CONSULT PROG Normal [facility] Comprehensive metabolic 2000 panelon 12-06-2024 Albumin [Mass/Vol] 2.5 g/dL Low 3.9-4.9 [facility] Comment on above: Order Comment: Speci men Type: BLOOD SPECIMENOrdering Facility: [facility] Address: [address] [place] [address] Performed By: #### 2 951-2, 11054-7, 69132-1 ####[facility] LABORATORYCLIA [id number] [address] [place] ALP [Catalytic activity/Vol] 112 U/L Normal 34-123 [facility] Comment on above: Order Comment: Speci men Type: BLOOD SPECIMENOrdering Facility: [facility] Address: [address] [place] [address] Performed By: #### 2 951-2, , ####[facility] LABORATORYCLIA [id number] [place] [address] [place] ALT [Catalytic activity/Vol] U/L Low 7-38 [facility] Comment on above: Order Comment: Speci men Type: BLOOD SPECIMENOrdering Facility: [facility] Address: [facility] [place] [address] Performed By: #### 2 951-2, , ####[facility] LABORATORYCLIA [id number] [place] [id number] [place] Anion gap [Moles/Vol] 10 mmol/L Normal 8-15 [facility] Comment on above: Order Comment: Speci men Type: BLOOD SPECIMENOrdering Facility: [facility] Address: [address] [place] [address] [place] [address] Performed By: #### 2 951-2, , ####[facility] LABORATORYCLIA [id number] [place] [address] [place] AST [Catalytic activity/Vol] 25 U/L Normal 13-35 [facility] Comment on above: Order Comment: Speci men Type: BLOOD SPECIMENOrdering Facility: [facility] Address: [facility] [place] [address] Performed By: #### 2 951-2, , ####[facility] LABORATORYCLIA [id number] [place] [address] [place] Bilirubin [Mass/Vol] mg/dL Low 0.2-1.[address] [facility] Comment on above: Order Comment: Speci men Type: BLOOD SPECIMENOrdering Facility: [facility] Address: [facility] [place] [address] Performed By: #### 2 951-2, , ####[facility] LABORATORYCLIA [id number] [place] [id number] [place] Calcium [Mass/Vol] 9.5 mg/dL Normal 8.5-10.2 [facility] Comment on above: Order Comment: Speci men Type: BLOOD SPECIMENOrdering Facility: [facility] Address: [address] [place] [address] Performed By: #### 2 951-2, , ####V[facility] LABORATORYCLIA [id number] [place] [address] [place] Chloride [Moles/Vol] 97 mmol/L Low 98-[address] [facility] Comment on above: Order Comment: Speci men Type: BLOOD SPECIMENOrdering Facility: [facility] Address: [address] [place] [address] Performed By: #### 2 951-2, , ####V[facility] LABORATORYCLIA [id number] [place] [address] [place] CO2 [Moles/Vol] 27 mmol/L Normal 22-30 [facility] Comment on above: Order Comment: Speci men Type: BLOOD SPECIMENOrdering Facility: [facility] Address: [address] [place] [address] Performed By: #### 2 951-2, , ####[facility] LABORATORYCLIA [id number] [place] [address] [place] Creatinine [Mass/Vol] 0.95 mg/dL Normal 0.58-0.96 [facility] Comment on above: Order Comment: Speci men Type: BLOOD SPECIMENOrdering Facility: [facility] Address: [address] [place] [address] Performed By: #### 2 951-2, , ####V[facility] LABORATORYCLIA [id number] [place] [id number] [place] Creatinine and Glomerular filtration rate.predicted panel (S/P/Bld) 58 mL/min/1.73m??? Low >=60 [facility] Comment on above: Order Comment: Speci men Type: BLOOD SPECIMENOrdering Facility: [facility] Address: [address] [place], [place] [address] Result Comment: Hilda mated Glomerular Filtration Rate (eGFR) is calculated using the 2020 CKD-EPI creatinine equation. This equation utilizes serum creatinine, sex, and age as parameters. The creatinine assay has traceable calibration to isotope dilution-mass spectrometry. Refer to KDIGO guidelines for clinical interpretation. In patients with unstable renal function, e.g. those with acute kidney injury, the eGFR may not accurately reflect actual GFR. Performed By: #### 2 951-2, , ####[facility] LABORATORYCLIA [id number] [place] [id number] [place] Glucose [Mass/Vol] 93 mg/dL Normal 74-99 [facility] Comment on above: Order Comment: Fan meade Type: BLOOD SPECIMENOrdering Facility: [facility] Address: [address] [place] [address] Result Comment: The [place] Diabetes Association (ADA) provides guidance for cutoff values for fasting glucose and random glucose. The ADA defines fasting as no caloric intake for at least 8 hours. Fasting plasma glucose results between 100 to 125 mg/dL indicate increased risk for diabetes (prediabetes).Fasting plasma glucose results greater than or equal to 126 mg/dL meet the criteria for diagnosis of diabetes. In the absence of unequivocal hyperglycemia, results should be confirmed by repeat testing. In a patient with classic symptoms of hyperglycemia or hyperglycemic crisis, random plasma glucose results greater than or equal to 200 mg/dL meet the criteria for diagnosis of diabetes.Reference: Standards of Medical Care in Diabetes 2016, [place] [employer]. Diabetes Care. 2016.39(Suppl 1). Performed By: #### 2 951-2, , ####[facility] LABORATORYCLIA [id number] [place] [id number] [place] Potassium [Moles/Vol] 3.8 mmol/L Normal 3.7-5.1 [facility] Comment on above: Order Comment: Fan meade Type: BLOOD SPECIMENOrdering Facility: [facility] Address: [address] [place] [address] Performed By: #### 2 951-2, 65103-4, 18702-7 ####[facility] LABORATORYCLIA [id number] [place] [address] [place] Protein [Mass/Vol] 5.7 g/dL Low 6.3-8.0 [facility] Comment on above: Order Comment: Speci men Type: BLOOD SPECIMENOrdering Facility: [facility] Address: [address] [place] [address] Performed By: #### 2 951-2, , ####VILL[facility] LABORATORYCLIA [id number] [place] [address] [place] Urea nitrogen [Mass/Vol] 45 mg/dL High 7-21 [facility] Comment on above: Order Comment: Speci men Type: BLOOD SPECIMENOrdering Facility: [facility] Address: [address] [place] [address] Performed By: #### 2 951-2, , ####VILL[facility] LABORATORYCLIA [id number] [place] [address] [place] Magnesium SerPl-mCncon 12-06 Magnesium [Mass/Vol] 1.8 mg/dL Normal 1.7-2.[address] [facility] Comment on above: Order Comment: Speci men Type: BLOOD SPECIMENOrdering Facility: [facility] Address: [address] [place] [address] Performed By: #### 2 951-2, , ####VILL[facility] LABORATORYCLIA [id number] [place] [address] [place] Sodium SerPl-sCncon 12-06-19 25 Sodium [Moles/Vol] 135 mmol/L Low 136-144 [facility] Comment on above: Order Comment: Speci men Type: BLOOD SPECIMENOrdering Facility: [facility] Address: [address] [place] [address] Performed By: #### 2 951-2 ####V[facility] LABORATORYCLIA [id number] [place] [address] [place] Sodium [Moles/Vol] 132 mmol/L Low 136-144 [facility] Comment on above: Order Comment: Speci men Type: BLOOD SPECIMENOrdering Facility: [facility] Address: [address] [place] [address] Performed By: #### 2 951-2 ####V[facility] LABORATORYCLIA [id number] [place] [address] [place] Sodium [Moles/Vol] 136 mmol/L Normal 136-144 [facility] Comment on above: Order Comment: Speci men Type: BLOOD SPECIMENOrdering Facility: [facility] Address: [address] [place] [address] Performed By: #### 2 951-2 ####[facility] LABORATORYCLIA [id number] [place] [address] [place] Sodium [Moles/Vol] 134 mmol/L Low 136-144 [facility] Comment on above: Order Comment: Speci men Type: BLOOD SPECIMENOrdering Facility: [facility] Address: [address] [place] [address] Performed By: #### 2 951-2, 07281-7, 29723-3 ####[facility] LABORATORYCLIA [id number] [place] [address] [place] Sodium [Moles/Vol] 131 mmol/L Low 136-144 [facility] Comment on above: Order Comment: Speci men Type: BLOOD SPECIMENOrdering Facility: [facility] Address: [address] [place] [address] Performed By: #### 2 951-2 ####[facility] LABORATORYCLIA [id number] [place] [address] [place] THERAPY NTon 12-06-2024 THERAPY NT Normal [facility] URINALYSIS, REFLEX MICROSCOP ICon 12-06-2024 Bilirubin Ql (U) Negative Normal Negative [facility] Comment on above: Order Comment: Speci men Type: URINE SPECIMENOrdering Facility: [facility] Address: [address] [place] [address] Performed By: #### L [id number] ####V[facility] LABORATORYCLIA [id number] [place] [address] [place] Clarity (Unsp spec) Clear Normal Clear [facility] Comment on above: Order Comment: Speci men Type: URINE SPECIMENOrdering Facility: [facility] Address: [address] [place] [address] Performed By: #### L [id number] ####VILLAR[facility] LABORATORYCLIA [id number] [address] [place] Color (U) Yellow Normal Yellow [facility] Comment on above: Order Comment: Speci men Type: URINE SPECIMENOrdering Facility: [facility] Address: [address] [place] [address] Performed By: #### L [id number] ####VILLARREAL LABORATORYCLIA [id number] [place] [address] [place] Epithelial cells LM.HPF (Urine sed) [#/Area] Few Normal [facility] Comment on above: Order Comment: Speci men Type: URINE SPECIMENOrdering Facility: [facility] Address: [address] [place] [address] Performed By: #### L [id number] ####VILLARREAL LABORATORYCLIA [id number] [place] [address] [place] Glucose Test strip (U) [Mass/Vol] Negative Normal Negative [facility] Comment on above: Order Comment: Speci men Type: URINE SPECIMENOrdering Facility: [facility] Address: [address] [place] [address] Performed By: #### L [id number] ####VILLARREAL LABORATORYCLIA [id number] [address] [place] Hemoglobin Ql (U) Negative Normal Negative [facility] Comment on above: Order Comment: Speci men Type: URINE SPECIMENOrdering Facility: [facility] Address: [address] [place] [address] Performed By: #### L [id number] ####VILLARREAL LABORATORYCLIA [id number] [address] [place] Ketones Ql (U) Negative Normal Negative [facility] Comment on above: Order Comment: Speci men Type: URINE SPECIMENOrdering Facility: [facility] Address: [address] [place], [place] [address] Performed By: #### L [id number] ####VILLARREAL LABORATORYCLIA [id number] [place] [address] [place] Leukocyte esterase Test strip Ql (U) 1+ Abnormal Negative [facility] Comment on above: Order Comment: Speci men Type: URINE SPECIMENOrdering Facility: [facility] Address: [address] [place] [address] Performed By: #### L [id number] ####VILLARREAL LABORATORYCLIA [id number] [place] [address] [place] Nitrite Ql (U) Negative Normal Negative [facility] Comment on above: Order Comment: Speci men Type: URINE SPECIMENOrdering Facility: [facility] Address: [address] [place] [address] Performed By: #### L [id number] ####VILLARREAL LABORATORYCLIA [id number] [place] [address] [place] pH (U) 6.0 [pH] Normal 5.0-8.0 [facility] Comment on above: Order Comment: Speci men Type: URINE SPECIMENOrdering Facility: [facility] Address: [address] [place] [address] Performed By: #### L [id number] ####VILLARREAL LABORATORYCLIA [id number] [place] [address] [place] Protein (U) [Mass/Vol] 1+ Abnormal Negative [facility] Comment on above: Order Comment: Speci men Type: URINE SPECIMENOrdering Facility: [facility] Address: [address] [place] [address] Performed By: #### L [id number] ####VILLARREAL LABORATORYCLIA [id number] [place] [address] [place] RBC LM.HPF (Urine sed) [#/Area] 0-3 /HPF Normal 0-3 /HPF [facility] Comment on above: Order Comment: Speci men Type: URINE SPECIMENOrdering Facility: [facility] Address: [address] [place] [address] Performed By: #### L [id number] ####VILLARREAL LABORATORYCLIA [id number] [place] [address] [place] Specific gravity (U) [Rel density] 1.010 Normal 1.005-1.030 [facility] Comment on above: Order Comment: Speci men Type: URINE SPECIMENOrdering Facility: [facility] Address: [address] [place] [address] Performed By: #### L [id number] ####VILLARREAL LABORATORYCLIA [id number] [address] [place] Urobilinogen Ql (U) 0.2 EU/dL Normal 0.2-1.0 EU/dL [facility] Comment on above: Order Comment: Speci men Type: URINE SPECIMENOrdering Facility: [facility] Address: [address] [place] [address] Performed By: #### L [id number] ####[facility] LABORATORYCLIA [id number] [place] [address] [place] WBC LM.HPF (Urine sed) [#/Area] 0-5 /HPF Normal 0-5 /HPF [facility] Comment on above: Order Comment: Speci men Type: URINE SPECIMENOrdering Facility: [facility] Address: [address] [place] [address] Performed By: #### L [id number] ####VILLARREAL LABORATORYCLIA [id number] [address] [place] Yeast.budding LM.HPF (Urine sed) [#/Area] Few Abnormal None Seen [facility] Comment on above: Order Comment: Speci men Type: URINE SPECIMENOrdering Facility: [facility] Address: [address] [place] [address] Performed By: #### L [id number] ####VILLARREAL LABORATORYCLIA [id number] [place] [address] [place] ALLIED HEALTHon 12-05-2024 ALLIED HEALTH Normal [facility] CASE MANAGEMon 12-05-2024 CASE MANAGEM Normal [facility] CASE MANAGEM [facility] CBC W Auto Differential pane l (Bld)on 12-05-2024 Basophils (Bld) [#/Vol] 10*3/uL Normal <0.11 M [facility] Comment on above: Order Comment: Speci men Type: BLOOD SPECIMENOrdering Facility: [facility] Address: [address] [place] [address] Performed By: #### 5 7021-8 ####VILLARREAL LABORATORYCLIA [id number] [place] [address] [place] Basophils/100 WBC (Bld) 0.1 % Normal [facility] Comment on above: Order Comment: Speci men Type: BLOOD SPECIMENOrdering Facility: [facility] Address: [address] [place] [address] Performed By: #### 5 7021-8 ####VILLARREAL LABORATORYCLIA [id number] [place] [address] [place] Differential cell count method Nom (Bld) Auto Normal [facility] Comment on above: Order Comment: Speci men Type: BLOOD SPECIMENOrdering Facility: [facility] Address: [address] [place] [address] Performed By: #### 5 7021-8 ####VILLARREAL LABORATORYCLIA [id number] [place] [address] [place] Eosinophils (Bld) [#/Vol] 10*3/uL Normal <0.46 [facility] Comment on above: Order Comment: Speci men Type: BLOOD SPECIMENOrdering Facility: [facility] Address: [address] [place] [address] Performed By: #### 5 7021-8 ####VILLARREAL LABORATORYCLIA [id number] [address] [place] Eosinophils/100 WBC (Bld) 0.0 % Normal [facility] Comment on above: Order Comment: Speci men Type: BLOOD SPECIMENOrdering Facility: [facility] Address: [address] [place] [address] Performed By: #### 5 7021-8 ####VILLARREAL LABORATORYCLIA [id number] [place] [id number] [place] Erythrocyte distribution width (RBC) [Ratio] 15.8 % High 11.5-15.0 [facility] Comment on above: Order Comment: Speci men Type: BLOOD SPECIMENOrdering Facility: [facility] Address: [address] [place] [address] Performed By: #### 5 7021-8 ####VILLARREAL LABORATORYCLIA [id number] [address] Hematocrit (Bld) [Volume fraction] 26.3 % Low 36.0-46.0 [facility] Comment on above: Order Comment: Speci men Type: BLOOD SPECIMENOrdering Facility: [facility] Address: [address] [place] [address] Performed By: #### 5 7021-8 ####VILLARREAL LABORATORYCLIA [id number] [address] [place] Hemoglobin (Bld) [Mass/Vol] 8.5 g/dL Low 11.5-15.5 [facility] Comment on above: Order Comment: Speci men Type: BLOOD SPECIMENOrdering Facility: [facility] Address: [address] [place] [address] Performed By: #### 5 7021-8 ####VILLARREAL LABORATORYCLIA [id number] [address] Immature granulocytes (Bld) [#/Vol] 0.11 10*3/uL High <0.10 [facility] Comment on above: Order Comment: Speci men Type: BLOOD SPECIMENOrdering Facility: [facility] Address: [address] [place] [address] Performed By: #### 5 7021-8 ####VILLARREAL LABORATORYCLIA [id number] [address] Immature granulocytes/100 WBC (Bld) 0.9 % Normal [facility] Comment on above: Order Comment: Speci men Type: BLOOD SPECIMENOrdering Facility: [facility] Address: [address] [place] [address] Performed By: #### 5 7021-8 ####VILLARREAL LABORATORYCLIA [id number] [address] Lymphocytes (Bld) [#/Vol] 0.46 10*3/uL Low 1.00-4.00 [facility] Comment on above: Order Comment: Speci men Type: BLOOD SPECIMENOrdering Facility: [facility] Address: [address] [place] [address] Performed By: #### 5 7021-8 ####VILLARREAL LABORATORYCLIA [id number] [address] Lymphocytes/100 WBC (Bld) 3.8 % Normal [facility] Comment on above: Order Comment: Speci men Type: BLOOD SPECIMENOrdering Facility: [facility] Address: [address] [place] [address] Performed By: #### 5 7021-8 ####VILLARREAL LABORATORYCLIA [id number] [address] MCH (RBC) [Entitic mass] 27.9 pg Normal 26.0-34.0 [facility] Comment on above: Order Comment: Speci men Type: BLOOD SPECIMENOrdering Facility: [facility] Address: [address] [place] [address] Performed By: #### 5 7021-8 ####VILLARREAL LABORATORYCLIA [id number] [address] MCHC (RBC) [Mass/Vol] 32.3 g/dL Normal 30.5-36.0 [facility] Comment on above: Order Comment: Speci men Type: BLOOD SPECIMENOrdering Facility: [facility] Address: [address] [place] [address] Performed By: #### 5 7021-8 ####VILLARREAL LABORATORYCLIA [id number] [address] MCV (RBC) [Entitic vol] 86.2 fL Normal 80.0-100.0 [facility] Comment on above: Order Comment: Speci men Type: BLOOD SPECIMENOrdering Facility: [facility] Address: [address] [place] [address] Performed By: #### 5 7021-8 ####VILLARREAL LABORATORYCLIA [id number] [address] Monocytes (Bld) [#/Vol] 0.18 10*3/uL Normal <0.87 [facility] Comment on above: Order Comment: Speci men Type: BLOOD SPECIMENOrdering Facility: [facility] Address: [address] [place] [address] Performed By: #### 5 7021-8 ####VILLARREAL LABORATORYCLIA [id number] [place] [address] [place] Monocytes/100 WBC (Bld) 1.5 % Normal [facility] Comment on above: Order Comment: Speci men Type: BLOOD SPECIMENOrdering Facility: [facility] Address: [address] [place] [address] Performed By: #### 5 7021-8 ####VILLARREAL LABORATORYCLIA [id number] [place] [address] [place] Neutrophils (Bld) [#/Vol] 11.38 10*3/uL High 1.45-7.50 [facility] Comment on above: Order Comment: Speci men Type: BLOOD SPECIMENOrdering Facility: [facility] Address: [address] [place] [address] Performed By: #### 5 7021-8 ####VILLARREAL LABORATORYCLIA [id number] [place] [address] [place] Neutrophils/100 WBC (Bld) 93.7 % Normal [facility] Comment on above: Order Comment: Speci men Type: BLOOD SPECIMENOrdering Facility: [facility] Address: [address] [place] [address] Performed By: #### 5 7021-8 ####VILLARREAL LABORATORYCLIA [id number] [place] [address] [place] Nucleated RBC (Bld) [#/Vol] 10*3/uL Normal <0.01 [facility] Comment on above: Order Comment: Speci men Type: BLOOD SPECIMENOrdering Facility: [facility] Address: [address] [place] [address] Performed By: #### 5 7021-8 ####VILLARREAL LABORATORYCLIA [id number] [place] [address] [place] Nucleated RBC/100 WBC (Bld) [Ratio] 0.0 /100 WBC Normal [facility] Comment on above: Order Comment: Speci men Type: BLOOD SPECIMENOrdering Facility: [facility] Address: [address] [place] [address] Performed By: #### 5 7021-8 ####VILLARREAL LABORATORYCLIA [id number] [address] [place] Platelet mean volume (Bld) [Entitic vol] 8.8 fL Low 9.0-12.7 [facility] Comment on above: Order Comment: Speci men Type: BLOOD SPECIMENOrdering Facility: [facility] Address: [facility] [place] [address] Performed By: #### 5 7021-8 ####[facility] LABORATORYCLIA [id number] [address] [place] Platelets (Bld) [#/Vol] 568 10*3/uL High 150-400 [facility] Comment on above: Order Comment: Speci men Type: BLOOD SPECIMENOrdering Facility: [facility] Address: [facility] [place] [address] Performed By: #### 5 7021-8 ####[facility] LABORATORYCLIA [id number] [address] [place] RBC (Bld) [#/Vol] 3.05 10*6/uL Low 3.90-5.20 [facility] Comment on above: Order Comment: Speci men Type: BLOOD SPECIMENOrdering Facility: [facility] Address: [facility] [place] [address] Performed By: #### 5 7021-8 ####VILLARREAL LABORATORYCLIA [id number] [address] [place] WBC (Bld) [#/Vol] 12.14 10*3/uL High 3.70-11.[address] [facility] Comment on above: Order Comment: Speci men Type: BLOOD SPECIMENOrdering Facility: [facility] Address: [facility] [place] [address] Performed By: #### 5 7021-8 ####VILLARREAL LABORATORYCLIA [id number] [place] [id number] [facility] CBC panel Auto (Bld)on 12-05 Erythrocyte distribution width (RBC) [Ratio] 15.8 % High 11.5-15.0 [facility] Comment on above: Order Comment: Speci men Type: BLOOD SPECIMENOrdering Facility: [facility] Address: [address] [place] [address] Performed By: #### 5 8410-2 ####VILLARREAL LABORATORYCLIA [id number] [address] [place] Hematocrit (Bld) [Volume fraction] 24.8 % Low 36.0-46.0 [facility] Comment on above: Order Comment: Speci men Type: BLOOD SPECIMENOrdering Facility: [facility] Address: [address] [place] [address] Performed By: #### 5 8410-2 ####VILLARREAL LABORATORYCLIA [id number] [address] [place] Hemoglobin (Bld) [Mass/Vol] 8.2 g/dL Low 11.5-15.5 [facility] Comment on above: Order Comment: Speci men Type: BLOOD SPECIMENOrdering Facility: [facility] Address: [address] [place] [address] Performed By: #### 5 8410-2 ####VILLARREAL LABORATORYCLIA [id number] [address] [place] MCH (RBC) [Entitic mass] 28.1 pg Normal 26.0-34.0 [facility] Comment on above: Order Comment: Speci men Type: BLOOD SPECIMENOrdering Facility: [facility] Address: [address] [place] [address] Performed By: #### 5 8410-2 ####VILLARREAL LABORATORYCLIA [id number] [address] [place] MCHC (RBC) [Mass/Vol] 33.1 g/dL Normal 30.5-36.0 [facility] Comment on above: Order Comment: Speci men Type: BLOOD SPECIMENOrdering Facility: [facility] Address: [address] [place] [address] Performed By: #### 5 8410-2 ####VILLARREAL LABORATORYCLIA [id number] [place] [address] [place] MCV (RBC) [Entitic vol] 84.9 fL Normal 80.0-100.0 M [facility] Comment on above: Order Comment: Speci men Type: BLOOD SPECIMENOrdering Facility: [facility] Address: [address] [place] [address] Performed By: #### 5 8410-2 ####VILLARREAL LABORATORYCLIA [id number] [place] [address] [place] Nucleated RBC (Bld) [#/Vol] 10*3/uL Normal <0.01 [facility] Comment on above: Order Comment: Speci men Type: BLOOD SPECIMENOrdering Facility: [facility] Address: [address] [place] [address] Performed By: #### 5 8410-2 ####VILLARREAL LABORATORYCLIA [id number] [address] [place] Platelet mean volume (Bld) [Entitic vol] 8.8 fL Low 9.0-12.7 [facility] Comment on above: Order Comment: Speci men Type: BLOOD SPECIMENOrdering Facility: [facility] Address: [address] [place] [address] Performed By: #### 5 8410-2 ####VILLARREAL LABORATORYCLIA [id number] [place] [address] [place] Platelets (Bld) [#/Vol] 574 10*3/uL High 150-400 [facility] Comment on above: Order Comment: Speci men Type: BLOOD SPECIMENOrdering Facility: [facility] Address: [address] [place] [address] Performed By: #### 5 8410-2 ####VILLARREAL LABORATORYCLIA [id number] [place] [address] [place] RBC (Bld) [#/Vol] 2.92 10*6/uL Low 3.90-5.20 [facility] Comment on above: Order Comment: Speci men Type: BLOOD SPECIMENOrdering Facility: [facility] Address: [address] [place] [address] Performed By: #### 5 8410-2 ####VILLARREAL LABORATORYCLIA [id number] [place] [address] [place] WBC (Bld) [#/Vol] 13.26 10*3/uL High 3.70-11.[address] [facility] Comment on above: Order Comment: Speci men Type: BLOOD SPECIMENOrdering Facility: [facility] Address: [address] [place], [place] [address] [address] Performed By: #### 5 8410-2 ####[facility] LABORATORYCLIA [id number] [place] [address] [facility] [place] CONSULT PROGon 12-05-2024 CONSULT PRO Normal [facility] CONSULT PROG Normal [facility] CONSULT PROG Normal [facility] Comprehensive metabolic 2000 panelon 12-05-2024 Albumin [Mass/Vol] 2.5 g/dL Low 3.9-4.9 [facility] Comment on above: Order Comment: Speci men Type: BLOOD SPECIMENOrdering Facility: [facility] Address: [address] [place] [address] Performed By: #### 3 040-3, 16687-5 ####[facility] LABORATORYCLIA [id number] [place] [id number] [place] ALP [Catalytic activity/Vol] 117 U/L Normal 34-123 [facility] Comment on above: Order Comment: Speci men Type: BLOOD SPECIMENOrdering Facility: [facility] Address: [address] [place] [address] [place] [address] Performed By: #### 3 040-3, 77363-0 ####[facility] LABORATORYCLIA [id number] [place] [id number] [place] ALT [Catalytic activity/Vol] U/L Low 7-38 [facility] Comment on above: Order Comment: Speci men Type: BLOOD SPECIMENOrdering Facility: [facility] Address: [address] [place] [address] [place] [address] Performed By: #### 3 040-3, 56757-3 ####VILLARREAL LABORATORYCLIA [id number] [place] [address] [place] Anion gap [Moles/Vol] 13 mmol/L Normal 8-15 [facility] Comment on above: Order Comment: Speci men Type: BLOOD SPECIMENOrdering Facility: [facility] Address: [address] [facility] [place] [address] Performed By: #### 3 040-3, ####VILLARREAL LABORATORYCLIA [id number] [place] [address] [place] AST [Catalytic activity/Vol] 18 U/L Normal 13-35 [facility] Comment on above: Order Comment: Speci men Type: BLOOD SPECIMENOrdering Facility: [facility] Address: [address] [place] [address] [place] [address] Performed By: #### 3 040-3, ####VILLARREAL LABORATORYCLIA [id number] [place] [address] [place] Bilirubin [Mass/Vol] mg/dL Low 0.2-1.[address] [facility] Comment on above: Order Comment: Speci men Type: BLOOD SPECIMENOrdering Facility: [facility] Address: [address] [place] [address] Performed By: #### 3 040-3, ####VILLARREAL LABORATORYCLIA [id number] [place] [address] [place] Calcium [Mass/Vol] 9.5 mg/dL Normal 8.5-10.2 [facility] Comment on above: Order Comment: Speci men Type: BLOOD SPECIMENOrdering Facility: [facility] Address: [address] [place] [address] [place] [address] Performed By: #### 3 040-3, 55973-0 ####VILLARREAL LABORATORYCLIA [id number] [place] [address] [place] Chloride [Moles/Vol] 92 mmol/L Low 98-[address] [facility] Comment on above: Order Comment: Speci men Type: BLOOD SPECIMENOrdering Facility: [facility] Address: [address] [place] [address] [place] [address] Performed By: #### 3 040-3, 53985-5 ####VILLARREAL LABORATORYCLIA [id number] [place] [address] [place] CO2 [Moles/Vol] 24 mmol/L Normal 22-30 [facility] Comment on above: Order Comment: Fan halina Type: BLOOD SPECIMENOrdering Facility: [facility] Address: [address] [place] [address] Performed By: #### 3 040-3, 87794-2 ####VILLARREAL LABORATORYCLIA [id number] [place] [address] [place] Creatinine [Mass/Vol] 1.04 mg/dL High 0.58-0.96 [facility] Comment on above: Order Comment: Kateleroy meade Type: BLOOD SPECIMENOrdering Facility: [facility] Address: [address] [place] [address] Performed By: #### 3 040-3, 04564-1 ####VILLARREAL LABORATORYCLIA [id number] [address] OF [facility] Creatinine and Glomerular filtration rate.predicted panel (S/P/Bld) 52 mL/min/1.73m??? Low >=60 [facility] Comment on above: Order Comment: Fan halina Type: BLOOD SPECIMENOrdering Facility: [facility] Address: [address] [place] [address] Result Comment: Hilda mated Glomerular Filtration Rate (eGFR) is calculated using the 2020 CKD-EPI creatinine equation. This equation utilizes serum creatinine, sex, and age as parameters. The creatinine assay has traceable calibration to isotope dilution-mass spectrometry. Refer to KDIGO guidelines for clinical interpretation. In patients with unstable renal function, e.g. those with acute kidney injury, the eGFR may not accurately reflect actual GFR. Performed By: #### 3 040-3, 23094-8 ####VILLARREAL LABORATORYCLIA [id number] [place] [address] [place] Glucose [Mass/Vol] 279 mg/dL High 74-99 [facility] Comment on above: Order Comment: Fan [facility] Type: BLOOD SPECIMENOrdering Facility: [facility] Address: [address] [place] [address] Result Comment: The [place] Diabetes [employer] (ADA) provides guidance for cutoff values for fasting glucose and random glucose. The ADA defines fasting as no caloric intake for at least 8 hours. Fasting plasma glucose results between 100 to 125 mg/dL indicate increased risk for diabetes (prediabetes).Fasting plasma glucose results greater than or equal to 126 mg/dL meet the criteria for diagnosis of diabetes. In the absence of unequivocal hyperglycemia, results should be confirmed by repeat testing. In a patient with classic symptoms of hyperglycemia or hyperglycemic crisis, random plasma glucose results greater than or equal to 200 mg/dL meet the criteria for diagnosis of diabetes.Reference: Standards of Medical Care in Diabetes 2016, [place] [employer]. Diabetes Care. 2016.39(Suppl 1). Performed By: #### 3 040-3, ####VILLARREAL LABORATORYCLIA [id number] [place] [address] [place] Potassium [Moles/Vol] 4.4 mmol/L Normal 3.7-5.1 [facility] Comment on above: Order Comment: Fan meade Type: BLOOD SPECIMENOrdering Facility: [facility] Address: [address] [place] [address] Performed By: #### 3 -, ####VILLARREAL LABORATORYCLIA [id number] [place] [address] [place] Protein [Mass/Vol] 5.8 g/dL Low 6.3-8.0 [facility] Comment on above: Order Comment: Fan meade Type: BLOOD SPECIMENOrdering Facility: [facility] Address: [address] [place] [address] Performed By: #### 3 040-3, ####VILLARREAL LABORATORYCLIA [id number] [place] [address] [place] Sodium [Moles/Vol] 129 mmol/L Low 136-144 [facility] Comment on above: Order Comment: Katei halina Type: BLOOD SPECIMENOrdering Facility: [facility] Address: [address] [place] [address] Performed By: #### 3 040-3, 89466-0 ####[facility] LABORATORYCLIA [id number] [place] [address] [place] Urea nitrogen [Mass/Vol] 49 mg/dL High 7-21 [facility] Comment on above: Order Comment: Katei men Type: BLOOD SPECIMENOrdering Facility: [facility] Address: [address] [place] [address] Performed By: #### 3 040-3, 07293-9 ####[facility] LABORATORYCLIA [id number] [place] [address] [place] [facility] Albumin [Mass/Vol] 2.5 g/dL Low 3.9-4.9 [facility] Comment on above: Order Comment: Speci men Type: BLOOD SPECIMENOrdering Facility: [facility] Address: [address] [place] [address] Performed By: #### 2 951-2, 94915-0, ####[facility] LABORATORYCLIA [id number] [place] [address] [place] ALP [Catalytic activity/Vol] 122 U/L Normal 34-123 [facility] Comment on above: Order Comment: Speci men Type: BLOOD SPECIMENOrdering Facility: [facility] Address: [address] [place] [address] Performed By: #### 2 951-2, , ####[facility] LABORATORYCLIA [id number] [place] [address] [place] ALT [Catalytic activity/Vol] U/L Low 7-38 [facility] Comment on above: Order Comment: Speci men Type: BLOOD SPECIMENOrdering Facility: [facility] Address: [address] [place] [address] Performed By: #### 2 951-2, , ####[facility] LABORATORYCLIA [id number] [place] [id number] [place] Anion gap [Moles/Vol] 11 mmol/L Normal 8-15 [facility] Comment on above: Order Comment: Speci men Type: BLOOD SPECIMENOrdering Facility: [facility] Address: [address] [place] [address] Performed By: #### 2 951-2, 88807-9, ####[facility] LABORATORYCLIA [id number] [place] [address] [place] AST [Catalytic activity/Vol] 21 U/L Normal 13-35 [facility] Comment on above: Order Comment: Speci men Type: BLOOD SPECIMENOrdering Facility: [facility] Address: [address] [place] [id number] Performed By: #### 2 951-2, , ####VILL[facility] LABORATORYCLIA [id number] [place] [address] [place] Bilirubin [Mass/Vol] mg/dL Low 0.2-1.[address] [facility] Comment on above: Order Comment: Speci men Type: BLOOD SPECIMENOrdering Facility: [facility] Address: [address] [place] [address] Performed By: #### 2 951-2, , ####[facility]ILL[facility] LABORATORYCLIA [id number] [place] [address] [place] Calcium [Mass/Vol] 9.8 mg/dL Normal 8.5-10.2 [facility] Comment on above: Order Comment: Speci men Type: BLOOD SPECIMENOrdering Facility: [facility] Address: [address] [place] [id number] Performed By: #### 2 951-2, , ####VILLAR[facility] LABORATORYCLIA [id number] [place] [address] [place] Chloride [Moles/Vol] 94 mmol/L Low 98-[address] [facility] Comment on above: Order Comment: Speci men Type: BLOOD SPECIMENOrdering Facility: [facility] Address: [address] [place] [address] Performed By: #### 2 951-2, , ####VILLARRE[facility] LABORATORYCLIA [id number] [place] [id number] [place] CO2 [Moles/Vol] 26 mmol/L Normal 22-30 [facility] Comment on above: Order Comment: Speci men Type: BLOOD SPECIMENOrdering Facility: [facility] Address: [address] [place] [address] Performed By: #### 2 951-2, , ####[facility] LABORATORYCLIA [id number] [place] [address] [place] Creatinine [Mass/Vol] 0.89 mg/dL Normal 0.58-0.96 [facility] Comment on above: Order Comment: Fan meade Type: BLOOD SPECIMENOrdering Facility: [facility] Address: [address] [place] [address] Performed By: #### 2 951-2, , ####[facility] LABORATORYCLIA [id number] [place] [address] [place] Creatinine and Glomerular filtration rate.predicted panel (S/P/Bld) 62 mL/min/1.73m??? Normal >=60 [facility] Comment on above: Order Comment: Fan meade Type: BLOOD SPECIMENOrdering Facility: [facility] Address: [address] [place] [address] Result Comment: Hilda mated Glomerular Filtration Rate (eGFR) is calculated using the 2020 CKD-EPI creatinine equation. This equation utilizes serum creatinine, sex, and age as parameters. The creatinine assay has traceable calibration to isotope dilution-mass spectrometry. Refer to KDIGO guidelines for clinical interpretation. In patients with unstable renal function, e.g. those with acute kidney injury, the eGFR may not accurately reflect actual GFR. Performed By: #### 2 951-2, , ####[facility] LABORATORYCLIA [id number] [place] [address] [place] Glucose [Mass/Vol] 238 mg/dL High 74-99 [facility] Comment on above: Order Comment: Fan meade Type: BLOOD SPECIMENOrdering Facility: [facility] Address: [address] [place] [address] Result Comment: The [place] Diabetes Association (ADA) provides guidance for cutoff values for fasting glucose and random glucose. The ADA defines fasting as no caloric intake for at least 8 hours. Fasting plasma glucose results between 100 to 125 mg/dL indicate increased risk for diabetes (prediabetes).Fasting plasma glucose results greater than or equal to 126 mg/dL meet the criteria for diagnosis of diabetes. In the absence of unequivocal hyperglycemia, results should be confirmed by repeat testing. In a patient with classic symptoms of hyperglycemia or hyperglycemic crisis, random plasma glucose results greater than or equal to 200 mg/dL meet the criteria for diagnosis of diabetes.Reference: Standards of Medical Care in Diabetes 2016, [place] Diabetes Association. Diabetes Care. 2016.39(Suppl 1). Performed By: #### 2 951-2, , ####[facility] LABORATORYCLIA [id number] [place] [address] [place] Potassium [Moles/Vol] 5.2 mmol/L High 3.7-5.1 [facility] Comment on above: Order Comment: Fan meade Type: BLOOD SPECIMENOrdering Facility: [facility] Address: [address] [place] [address] Performed By: #### 2 951-2, , ####VILLAR[facility] LABORATORYCLIA [id number] [place] [address] [place] Protein [Mass/Vol] 6.1 g/dL Low 6.3-8.0 [facility] Comment on above: Order Comment: Fan meade Type: BLOOD SPECIMENOrdering Facility: [facility] Address: [address] [place] [address] Performed By: #### 2 951-2, , ####[facility] LABORATORYCLIA [id number] [address] STATES OF [facility] Urea nitrogen [Mass/Vol] 41 mg/dL High 7-21 [facility] Comment on above: Order Comment: Katei halina Type: BLOOD SPECIMENOrdering Facility: [facility] Address: [address] [place] [address] Performed By: #### 2 951-2, , ####[facility]ILL[facility] LABORATORYCLIA [id number] [place] [address] [place] ECG COMPLETEon 12-05-2024 ECG COMPLETE Normal [facility] Lipase SerPl-cCncon 12-05-19 25 Lipase [Catalytic activity/Vol] 31 U/L Normal 16-61 [facility] Comment on above: Order Comment: Katei men Type: BLOOD SPECIMENOrdering Facility: [facility] Address: [address] [place] [address] Performed By: #### 3 040-3, 97589-0 ####VILLAR[facility] LABORATORYCLIA [id number] [place] [address] [place] Magnesium SerPl-mCncon 12-05 Magnesium [Mass/Vol] 2.0 mg/dL Normal 1.7-2.[address] [facility] Comment on above: Order Comment: Speci men Type: BLOOD SPECIMENOrdering Facility: [facility] Address: [address] [place] [address] Performed By: #### 2 951-2, 58028-9, 48780-8 ####[facility]ILL[facility] LABORATORYCLIA [id number] [place] [address] [place] SEPSIS LACTATEon 12-05-2024 Lactate [Moles/Vol] 1.5 mmol/L Normal 0.5-2.0 [facility] Comment on above: Order Comment: Speci men Type: BLOOD SPECIMENOrdering Facility: [facility] Address: [address] [place] [address] Performed By: #### S LACT ####[facility] LABORATORYCLIA [id number] [place] [address] [place] Sodium SerPl-sCncon 12-05-19 Sodium [Moles/Vol] 127 mmol/L Low 136-144 [facility] Comment on above: Order Comment: Speci men Type: BLOOD SPECIMENOrdering Facility: [facility] Address: [address] [place] [address] Performed By: #### 2 951-2 ####V[facility] LABORATORYCLIA [id number] [place] [address] [place] [facility] Sodium [Moles/Vol] 129 mmol/L Low 136-144 [facility] Comment on above: Order Comment: Speci men Type: BLOOD SPECIMENOrdering Facility: [facility] Address: [address] [place] [address] Performed By: #### 2 951-2 ####[facility] LABORATORYCLIA [id number] [place] [address] [place] Sodium [Moles/Vol] 131 mmol/L Low 136-144 [facility] Comment on above: Order Comment: Speci men Type: BLOOD SPECIMENOrdering Facility: [facility] Address: [address] [place] [address] Performed By: #### 2 951-2, 60530-5, 72147-0 ####[facility] LABORATORYCLIA [id number] [address] [place] THERAPY NTon 12-05-2024 THERAPY NT Normal [facility] XR ABDOMEN 1V SUPINEon 12-05 XR ABDOMEN 1V SUPINE Normal [facility] CASE MANAGEMon 12-04-2024 CASE MANAGEM [facility] CBC W Auto Differential pane l (Bld)on 12-04-2024 Basophils (Bld) [#/Vol] 0.05 10*3/uL Normal <0.11 [facility] Comment on above: Order Comment: Speci men Type: BLOOD SPECIMENOrdering Facility: [facility] Address: [address] [place] [address] Performed By: #### 5 7021-8 ####VILL[facility] LABORATORYCLIA [id number] [place] [address] [place] Basophils/100 WBC (Bld) 0.2 % Normal [facility] Comment on above: Order Comment: Speci men Type: BLOOD SPECIMENOrdering Facility: [facility] Address: [address] [place] [address] Performed By: #### 5 7021-8 ####V[facility] LABORATORYCLIA [id number] [place] [address] [place] Differential cell count method Nom (Bld) Auto Normal [facility] Comment on above: Order Comment: Speci men Type: BLOOD SPECIMENOrdering Facility: [facility] Address: [address] [place] [address] Performed By: #### 5 7021-8 ####VILL[facility] LABORATORYCLIA [id number] [place] [address] [place] Eosinophils (Bld) [#/Vol] 10*3/uL Normal <0.46 [facility] Comment on above: Order Comment: Speci men Type: BLOOD SPECIMENOrdering Facility: [facility] Address: [address] [place] [address] Performed By: #### 5 7021-8 ####VILL[facility] LABORATORYCLIA [id number] [address] [place] Eosinophils/100 WBC (Bld) 0.1 % Normal [facility] Comment on above: Order Comment: Speci men Type: BLOOD SPECIMENOrdering Facility: [facility] Address: [address] [place] [address] Performed By: #### 5 7021-8 ####V[facility] LABORATORYCLIA [id number] [address] [place] Erythrocyte distribution width (RBC) [Ratio] 15.8 % High 11.5-15.0 [facility] Comment on above: Order Comment: Speci men Type: BLOOD SPECIMENOrdering Facility: [facility] Address: [address] [place] [address] Performed By: #### 5 7021-8 ####V[facility] LABORATORYCLIA [id number] [address] [place] Hematocrit (Bld) [Volume fraction] 25.9 % Low 36.0-46.0 [facility] Comment on above: Order Comment: Speci men Type: BLOOD SPECIMENOrdering Facility: [facility] Address: [address] [place] [address] Performed By: #### 5 7021-8 ####V[facility] LABORATORYCLIA [id number] [place] [address] [place] Hemoglobin (Bld) [Mass/Vol] 8.5 g/dL Low 11.5-15.5 [facility] Comment on above: Order Comment: Speci men Type: BLOOD SPECIMENOrdering Facility: [facility] Address: [address] [place] [address] Performed By: #### 5 7021-8 ####VILL[facility] LABORATORYCLIA [id number] [address] [place] Immature granulocytes (Bld) [#/Vol] 0.27 10*3/uL High <0.10 [facility] Comment on above: Order Comment: Speci men Type: BLOOD SPECIMENOrdering Facility: [facility] Address: [address] [place] [address] Performed By: #### 5 7021-8 ####V[facility] LABORATORYCLIA [id number] [address] [place] Immature granulocytes/100 WBC (Bld) 1.3 % Normal [facility] Comment on above: Order Comment: Speci men Type: BLOOD SPECIMENOrdering Facility: [facility] Address: [address] [place] [address] Performed By: #### 5 7021-8 ####V[facility] LABORATORYCLIA [id number] [place] [address] [place] Lymphocytes (Bld) [#/Vol] 0.64 10*3/uL Low 1.00-4.00 [facility] Comment on above: Order Comment: Speci men Type: BLOOD SPECIMENOrdering Facility: [facility] Address: [address] [place] [address] Performed By: #### 5 7021-8 ####V[facility] LABORATORYCLIA [id number] [address] Lymphocytes/100 WBC (Bld) 3.1 % Normal [facility] Comment on above: Order Comment: Speci men Type: BLOOD SPECIMENOrdering Facility: [facility] Address: [address] [place] [address] Performed By: #### 5 7021-8 ####VILLAR[facility] LABORATORYCLIA [id number] [address] [place] MCH (RBC) [Entitic mass] 28.1 pg Normal 26.0-34.0 [facility] Comment on above: Order Comment: Speci men Type: BLOOD SPECIMENOrdering Facility: [facility] Address: [address] [place] [address] Performed By: #### 5 7021-8 ####V[facility] LABORATORYCLIA [id number] [address] [place] MCHC (RBC) [Mass/Vol] 32.8 g/dL Normal 30.5-36.0 [facility] Comment on above: Order Comment: Speci men Type: BLOOD SPECIMENOrdering Facility: [facility] Address: [address] [place] [address] Performed By: #### 5 7021-8 ####V[facility] LABORATORYCLIA [id number] [place] [address] [place] MCV (RBC) [Entitic vol] 85.8 fL Normal 80.0-100.0 [facility] Comment on above: Order Comment: Speci men Type: BLOOD SPECIMENOrdering Facility: [facility] Address: [address] [place] [address] Performed By: #### 5 7021-8 ####V[facility] LABORATORYCLIA [id number] [place] [address] [place] Monocytes (Bld) [#/Vol] 1.09 10*3/uL High <0.87 [facility] Comment on above: Order Comment: Speci men Type: BLOOD SPECIMENOrdering Facility: [facility] Address: [address] [place] [address] Performed By: #### 5 7021-8 ####[facility] LABORATORYCLIA [id number] [address] [place] Monocytes/100 WBC (Bld) 5.3 % Normal [facility] Comment on above: Order Comment: Speci men Type: BLOOD SPECIMENOrdering Facility: [facility] Address: [address] [place] [address] Performed By: #### 5 7021-8 ####V[facility] LABORATORYCLIA [id number] [place] [address] [place] Neutrophils (Bld) [#/Vol] 18.59 10*3/uL High 1.45-7.50 [facility] Comment on above: Order Comment: Speci men Type: BLOOD SPECIMENOrdering Facility: [facility] Address: [address] [place] [address] Performed By: #### 5 7021-8 ####V[facility] LABORATORYCLIA [id number] [place] [address] [place] Neutrophils/100 WBC (Bld) 90.0 % Normal [facility] Comment on above: Order Comment: Speci men Type: BLOOD SPECIMENOrdering Facility: [facility] Address: [address] [place] [address] Performed By: #### 5 7021-8 ####V[facility] LABORATORYCLIA [id number] [place] [address] [place] Nucleated RBC (Bld) [#/Vol] 10*3/uL Normal <0.01 [facility] Comment on above: Order Comment: Speci men Type: BLOOD SPECIMENOrdering Facility: [facility] Address: [address] [place] [address] Performed By: #### 5 7021-8 ####VILL[facility] LABORATORYCLIA [id number] [place] [address] [place] Nucleated RBC/100 WBC (Bld) [Ratio] 0.0 /100 WBC Normal [facility] Comment on above: Order Comment: Speci men Type: BLOOD SPECIMENOrdering Facility: [facility] Address: [address] [place] [address] Performed By: #### 5 7021-8 ####VILLAR[facility] LABORATORYCLIA [id number] [place] [address] [place] Platelet mean volume (Bld) [Entitic vol] 8.7 fL Low 9.0-12.7 [facility] Comment on above: Order Comment: Speci men Type: BLOOD SPECIMENOrdering Facility: [facility] Address: [address] [place] [address] Performed By: #### 5 7021-8 ####V[facility] LABORATORYCLIA [id number] [place] [address] [place] Platelets (Bld) [#/Vol] 518 10*3/uL High 150-400 [facility] Comment on above: Order Comment: Speci men Type: BLOOD SPECIMENOrdering Facility: [facility] Address: [address] [place] [address] Performed By: #### 5 7021-8 ####VILLAR[facility] LABORATORYCLIA [id number] [place] [address] [place] RBC (Bld) [#/Vol] 3.02 10*6/uL Low 3.90-5.20 [facility] Comment on above: Order Comment: Speci men Type: BLOOD SPECIMENOrdering Facility: [facility] Address: [address] [place] [address] Performed By: #### 5 7021-8 ####[facility] LABORATORYCLIA [id number] [place] [address] [place] [facility] WBC (Bld) [#/Vol] 20.66 10*3/uL High 3.70-11.[address] [facility] Comment on above: Order Comment: Speci men Type: BLOOD SPECIMENOrdering Facility: [facility] Address: [address] [place] [address] Performed By: #### 5 7021-8 ####[facility] LABORATORYCLIA [id number] [address] STATES [facility] CBC W Ordered Manual Differe ntial panel (Bld)on 12-04-2024 Basophils (Bld) [#/Vol] 0.03 10*3/uL Normal <0.11 [facility] Comment on above: Order Comment: Speci men Type: BLOOD SPECIMENOrdering Facility: [facility] Address: [address] [place] [address] Performed By: #### S TFREV ####[facility] LABCLIA [id number] [place] [address] [place]#### 57873-3 ####V[facility] LABORATORYCLIA [id number] [address] Basophils/100 WBC (Bld) 0.2 % Normal [facility] Comment on above: Order Comment: Speci men Type: BLOOD SPECIMENOrdering Facility: [facility] Address: [address] [place] [address] Performed By: #### S TFREV ####[facility] LABCLIA [id number] [place] [address] [place]#### 38356-0 ####[facility] LABORATORYCLIA [id number] [place] [address] [place] Differential cell count method Nom (Bld) Auto Normal [facility] Comment on above: Order Comment: Speci men Type: BLOOD SPECIMENOrdering Facility: [facility] Address: [address] [place] [address] Performed By: #### S TFREV ####[facility] LABCLIA [id number] [place] [address] [place]#### 55134-9 ####[facility] LABORATORYCLIA [id number] [place] [address] [place] Eosinophils (Bld) [#/Vol] 10*3/uL Normal <0.46 [facility] Comment on above: Order Comment: Speci men Type: BLOOD SPECIMENOrdering Facility: [facility] Address: [address] [place] [address] Performed By: #### S TFREV ####[facility] LABCLIA [id number] [place] [address] [place]#### 03590-2 ####[facility] LABORATORYCLIA [id number] [place] [address] [place] Eosinophils/100 WBC (Bld) 0.1 % Normal [facility] Comment on above: Order Comment: Speci men Type: BLOOD SPECIMENOrdering Facility: [facility] Address: [address] [place] [address] Performed By: #### S TFREV ####[facility] LABCLIA [id number] [place] [address] [place]#### 35722-8 ####[facility] LABORATORYCLIA [id number] [place] [address] [place] Erythrocyte distribution width (RBC) [Ratio] 15.9 % High 11.5-15.0 [facility] Comment on above: Order Comment: Speci men Type: BLOOD SPECIMENOrdering Facility: [facility] Address: [address] [place] [address] Performed By: #### S TFREV ####[facility] LABCLIA [id number] [place] [address] [place]#### 77362-1 ####[facility] LABORATORYCLIA [id number] [place] [address] [place] Hematocrit (Bld) [Volume fraction] 26.2 % Low 36.0-46.0 [facility] Comment on above: Order Comment: Speci men Type: BLOOD SPECIMENOrdering Facility: [facility] Address: [address] [place] [address] Performed By: #### S TFREV ####[facility] LABCLIA [id number] [place] [address] [place]#### 31458-4 ####[facility] LABORATORYCLIA [id number] [address] [place] Hemoglobin (Bld) [Mass/Vol] 8.7 g/dL Low 11.5-15.5 [facility] Comment on above: Order Comment: Speci men Type: BLOOD SPECIMENOrdering Facility: [facility] Address: [address] [place] [address] Performed By: #### S TFREV ####[facility] LABCLIA [id number] [place] [address] [place]#### 68636-3 ####[facility] LABORATORYCLIA [id number] [address] Immature granulocytes (Bld) [#/Vol] 0.20 10*3/uL High <0.10 [facility] Comment on above: Order Comment: Speci men Type: BLOOD SPECIMENOrdering Facility: [facility] Address: [address] [place] [address] Performed By: #### S TFREV ####[facility] LABCLIA [id number] [place] [address] [place]#### 45254-7 ####[facility] LABORATORYCLIA [id number] [address] [place] Immature granulocytes/100 WBC (Bld) 1.3 % Normal [facility] Comment on above: Order Comment: Speci men Type: BLOOD SPECIMENOrdering Facility: [facility] Address: [address] [place] [address] Performed By: #### S TFREV ####[facility] LABCLIA [id number] [place] [address] [place]#### 37625-8 ####[facility] LABORATORYCLIA [id number] [place] [address] [place] Lymphocytes (Bld) [#/Vol] 0.56 10*3/uL Low 1.00-4.00 [facility] Comment on above: Order Comment: Speci men Type: BLOOD SPECIMENOrdering Facility: [facility] Address: [address] [place] [address] Performed By: #### S TFREV ####[facility] LABCLIA [id number] [place] [address] [place]#### 49296-2 ####[facility] LABORATORYCLIA [id number] [address] [place] Lymphocytes/100 WBC (Bld) 3.5 % Normal [facility] Comment on above: Order Comment: Speci men Type: BLOOD SPECIMENOrdering Facility: [facility] Address: [address] [place] [address] Performed By: #### S TFREV ####[facility] LABCLIA [id number] [place] [address] [place]#### 78752-3 ####[facility] LABORATORYCLIA [id number] [place] [address] [place] MCH (RBC) [Entitic mass] 28.3 pg Normal 26.0-34.0 [facility] Comment on above: Order Comment: Speci men Type: BLOOD SPECIMENOrdering Facility: [facility] Address: [address] [place] [address] Performed By: #### S TFREV ####[facility] LABCLIA [id number] [place] [address] [place]#### 04975-0 ####[facility] LABORATORYCLIA [id number] [place] [address] [place] MCHC (RBC) [Mass/Vol] 33.2 g/dL Normal 30.5-36.0 [facility] Comment on above: Order Comment: Speci men Type: BLOOD SPECIMENOrdering Facility: [facility] Address: [address] [place] [address] Performed By: #### S TFREV ####[facility] LABCLIA [id number] [place] [address] [place]#### 49548-0 ####[facility] LABORATORYCLIA [id number] [place] [address] [place] MCV (RBC) [Entitic vol] 85.3 fL Normal 80.0-100.0 M [facility] Comment on above: Order Comment: Speci men Type: BLOOD SPECIMENOrdering Facility: [facility] Address: [address] [place] [address] Performed By: #### S TFREV ####[facility] LABCLIA [id number] [place] [address] [place]#### 97237-7 ####[facility] LABORATORYCLIA [id number] [address] [place] Monocytes (Bld) [#/Vol] 0.74 10*3/uL Normal <0.87 [facility] Comment on above: Order Comment: Speci men Type: BLOOD SPECIMENOrdering Facility: [facility] Address: [address] [place] [address] Performed By: #### S TFREV ####[facility] LABCLIA [id number] [place] [address] [place]#### 08357-5 ####[facility] LABORATORYCLIA [id number] [address] Monocytes/100 WBC (Bld) 4.6 % Normal [facility] Comment on above: Order Comment: Speci men Type: BLOOD SPECIMENOrdering Facility: [facility] Address: [address] [place] [address] Performed By: #### S TFREV ####[facility] LABCLIA [id number] [place] [address] [place]#### 61707-0 ####[facility] LABORATORYCLIA [id number] [address] [place] Neutrophils (Bld) [#/Vol] 14.38 10*3/uL High 1.45-7.50 [facility] Comment on above: Order Comment: Speci men Type: BLOOD SPECIMENOrdering Facility: [facility] Address: [address] [place] [address] Performed By: #### S TFREV ####[facility] LABCLIA [id number] [place] [address] [place]#### 78331-2 ####[facility] LABORATORYCLIA [id number] [address] STATES [facility] Neutrophils/100 WBC (Bld) 90.3 % Normal [facility] Comment on above: Order Comment: Speci men Type: BLOOD SPECIMENOrdering Facility: [facility] Address: [address] [place] [address] Performed By: #### S TFREV ####[facility] LABCLIA [id number] [place] [address] [place]#### 67194-7 ####[facility] LABORATORYCLIA [id number] [place] [address] [place] Nucleated RBC (Bld) [#/Vol] 10*3/uL Normal <0.01 [facility] Comment on above: Order Comment: Speci men Type: BLOOD SPECIMENOrdering Facility: [facility] Address: [address] [place] [address] Performed By: #### S TFREV ####[facility] LABCLIA [id number] [place] [address] [place]#### 27818-0 ####[facility]ATORYCLIA [id number] [place] [address] [place] Nucleated RBC/100 WBC (Bld) [Ratio] 0.0 /100 WBC Normal [facility] Comment on above: Order Comment: Speci men Type: BLOOD SPECIMENOrdering Facility: [facility] Address: [address] [place] [address] Performed By: #### S TFREV ####[facility] LABCLIA [id number] [place] [address] [place]#### 17920-3 ####[facility]ORATORYCLIA [id number] [place] [address] [place] Platelet mean volume (Bld) [Entitic vol] 8.8 fL Low 9.0-12.7 [facility] Comment on above: Order Comment: Speci men Type: BLOOD SPECIMENOrdering Facility: [facility] Address: [address] [place] [address] Performed By: #### S TFREV ####[facility] LABCLIA [id number] [place] [address] [place]#### 34852-2 ####[facility]ORATORYCLIA [id number] [place] [address] [place] Platelets (Bld) [#/Vol] 512 10*3/uL High 150-400 [facility] Comment on above: Order Comment: Speci men Type: BLOOD SPECIMENOrdering Facility: [facility] Address: [address] [place] [address] Performed By: #### S TFREV ####[facility] LABCLIA [id number] [place] [id number] [place]#### 44473-7 ####[facility] LABORATORYCLIA [id number] [place] [address] [place] RBC (Bld) [#/Vol] 3.07 10*6/uL Low 3.90-5.20 [facility] Comment on above: Order Comment: Speci men Type: BLOOD SPECIMENOrdering Facility: [facility] Address: [address] [place] [address] Performed By: #### S TFREV ####[facility] LABCLIA [id number] [place] [address] [place]#### 79346-4 ####[facility] LABORATORYCLIA [id number] [place] [address] [place] WBC (Bld) [#/Vol] 15.92 10*3/uL High 3.70-11.[address] [facility] Comment on above: Order Comment: Speci men Type: BLOOD SPECIMENOrdering Facility: [facility] Address: [address] [place] [address] Performed By: #### S TFREV ####[facility] LABCLIA [id number] [place] [address] [place]#### 36854-7 ####[facility] LABORATORYCLIA [id number] [place] [id number] [place] CONSULTon 12-04-2024 CONSULT Normal [facility] CONSULT PROGon 12-04-2024 CONSULT PROG Normal [facility] CONSULT PROG Normal [facility] CONSULT PROG Normal [facility] Comprehensive metabolic 2000 panelon 12-04-2024 Albumin [Mass/Vol] 2.5 g/dL Low 3.9-4.9 [facility] Comment on above: Order Comment: Speci men Type: BLOOD SPECIMENOrdering Facility: [facility] Address: [address] [place] [address] Performed By: #### 2 4323-8, 24788-6, 2951-2 ####[facility] LABORATORYCLIA [id number] [place] [address] [place] ALP [Catalytic activity/Vol] 112 U/L Normal 34-123 [facility] Comment on above: Order Comment: Speci men Type: BLOOD SPECIMENOrdering Facility: [facility] Address: [address] [place] [address] Performed By: #### 2 4323-8, 14995-3, 2950-2 ####[facility] LABORATORYCLIA [id number] [place] [address] [place] [facility] ALT [Catalytic activity/Vol] U/L Low 7-38 [facility] Comment on above: Order Comment: Speci men Type: BLOOD SPECIMENOrdering Facility: [facility] Address: [address] [place] [address] Performed By: #### 2 4323-8, 06786-6, 2950-2 ####[facility] LABORATORYCLIA [id number] [address] Anion gap [Moles/Vol] 10 mmol/L Normal 8-15 [facility] Comment on above: Order Comment: Speci men Type: BLOOD SPECIMENOrdering Facility: [facility] Address: [address] [place] [address] Performed By: #### 2 4323-8, , 2950-2 ####[facility] LABORATORYCLIA [id number] [address] OF [facility] AST [Catalytic activity/Vol] 31 U/L Normal 13-35 [facility] Comment on above: Order Comment: Speci men Type: BLOOD SPECIMENOrdering Facility: [facility] Address: [address] [place] [id number] Performed By: #### 2 4323-8, 27594-2, 2950-2 ####[facility] LABORATORYCLIA [id number] [address] Bilirubin [Mass/Vol] mg/dL Low 0.2-1.[address] [facility] Comment on above: Order Comment: Speci men Type: BLOOD SPECIMENOrdering Facility: [facility] Address: [address] [place] [address] Performed By: #### 2 4323-8, , 2950-2 ####[facility] LABORATORYCLIA [id number] [place] [address] [place] Calcium [Mass/Vol] 9.7 mg/dL Normal 8.5-10.2 [facility] Comment on above: Order Comment: Speci men Type: BLOOD SPECIMENOrdering Facility: [facility] Address: [facility] [place] [address] Performed By: #### 2 4323-8, , 2950-12 ####[facility] LABORATORYCLIA [id number] [place] [address] [place] Chloride [Moles/Vol] 95 mmol/L Low 98-[address] [facility] Comment on above: Order Comment: Speci men Type: BLOOD SPECIMENOrdering Facility: [facility] Address: [facility] [place] [address] Performed By: #### 2 4323-8, , 2950-12 ####[facility] LABORATORYCLIA [id number] [place] [address] [place] CO2 [Moles/Vol] 27 mmol/L Normal 22-30 [facility] Comment on above: Order Comment: Speci men Type: BLOOD SPECIMENOrdering Facility: [facility] Address: [facility] [place] [address] Performed By: #### 2 4323-8, , 2 ####[facility] LABORATORYCLIA [id number] [place] [address] [place] Creatinine [Mass/Vol] 0.84 mg/dL Normal 0.58-0.96 [facility] Comment on above: Order Comment: Speci men Type: BLOOD SPECIMENOrdering Facility: [facility] Address: [facility] [place] [address] Performed By: #### 2 4323-8, , 2950-2 ####[facility] LABORATORYCLIA [id number] [place] [address] [facility] [place] Creatinine and Glomerular filtration rate.predicted panel (S/P/Bld) 67 mL/min/1.73m??? Normal >=60 [facility] Comment on above: Order Comment: Fan meade Type: BLOOD SPECIMENOrdering Facility: [facility] Address: [address] [place] [address] Result Comment: Hilda mated Glomerular Filtration Rate (eGFR) is calculated using the 2020 CKD-EPI creatinine equation. This equation utilizes serum creatinine, sex, and age as parameters. The creatinine assay has traceable calibration to isotope dilution-mass spectrometry. Refer to KDIGO guidelines for clinical interpretation. In patients with unstable renal function, e.g. those with acute kidney injury, the eGFR may not accurately reflect actual GFR. Performed By: #### 2 4323-8, 00077-6, 295-2 ####[facility] LABORATORYCLIA [id number] [place] [address] [place] Glucose [Mass/Vol] 60 mg/dL Low 74-99 [facility] Comment on above: Order Comment: Fan meade Type: BLOOD SPECIMENOrdering Facility: [facility] Address: [address] [place] [address] Result Comment: The [place] Diabetes Association (ADA) provides guidance for cutoff values for fasting glucose and random glucose. The ADA defines fasting as no caloric intake for at least 8 hours. Fasting plasma glucose results between 100 to 125 mg/dL indicate increased risk for diabetes (prediabetes).Fasting plasma glucose results greater than or equal to 126 mg/dL meet the criteria for diagnosis of diabetes. In the absence of unequivocal hyperglycemia, results should be confirmed by repeat testing. In a patient with classic symptoms of hyperglycemia or hyperglycemic crisis, random plasma glucose results greater than or equal to 200 mg/dL meet the criteria for diagnosis of diabetes.Reference: Standards of Medical Care in Diabetes 2016, [place] Diabetes Association. Diabetes Care. 2016.39(Suppl 1). Performed By: #### 2 4323-8, 93069-9, 295-2 ####[facility] LABORATORYCLIA [id number] [place] [address] [place] Potassium [Moles/Vol] 4.6 mmol/L Normal 3.7-5.1 [facility] Comment on above: Order Comment: Fan meade Type: BLOOD SPECIMENOrdering Facility: [facility] Address: [address] [place], [place] [address] [id number] Performed By: #### 2 4323-8, 45059-3, 295-2 ####[facility] LABORATORYCLIA [id number] [place] [address] [place] Protein [Mass/Vol] 5.9 g/dL Low 6.3-8.0 [facility] Comment on above: Order Comment: Speci men Type: BLOOD SPECIMENOrdering Facility: [facility] Address: [address] [place] [address] Performed By: #### 2 4323-8, 26726-6, 295-2 ####[facility] LABORATORYCLIA [id number] [place] [address] [place] Urea nitrogen [Mass/Vol] 37 mg/dL High 06-03 [facility] Comment on above: Order Comment: Speci men Type: BLOOD SPECIMENOrdering Facility: [facility] Address: [address] [place] [address] Performed By: #### 2 4323-8, , 2952 ####[facility] LABORATORYCLIA [id number] [place] [id number] [place] Creatinine Unsp time (U) [Ma ss/Vol]on 12-04-2024 Creatinine (U) [Mass/Vol] 41.7 mg/dL Normal 20.0-300.0 [facility] Comment on above: Order Comment: Speci men Type: URINE SPECIMENOrdering Facility: [facility] Address: [address] [place] [address] Performed By: #### 3 5678-2, 75280-5, 49023-2 ####[facility] LABCLIA [id number] [facility] [id number] [id number] [place] Magnesium SerPl-mCncon 12-04 Magnesium [Mass/Vol] 2.0 mg/dL Normal 1.7-2.[address] [facility] Comment on above: Order Comment: Speci men Type: BLOOD SPECIMENOrdering Facility: [facility] Address: [address] [place] [address] Performed By: #### 2 4323-8, 14202-8, 2951-2 ####[facility] LABORATORYCLIA [id number] [place] [address] [place] NUTRITIONon 12-04-2024 NUTRITION Normal [facility] Osmolality Uron 12-04-2024 Osmolality (U) [Osmolality] 412 mosm/kg Normal 50-1200 [facility] Comment on above: Order Comment: Speci men Type: URINE SPECIMENOrdering Facility: [facility] Address: [address] [place] [address] Performed By: #### 2 695-5 ####[facility] LABCLIA [id number] [place] [address] [place] PATHOLOGIST INTERPRETATION C BC/DIFFon 12-04-2024 Strike Out Machine Operator review Mckay (Unsp spec) [Interp] No review performed. [facility] Comment on above: Order Comment: Speci men Type: BLOOD SPECIMENOrdering Facility: [facility] Address: [address] [place] [address] Performed By: #### S TFREV ####[facility] LABCLIA [id number] [place] [address] [place]#### 22609-2 ####[facility] LABORATORYCLIA [id number] [place] [address] [place] STAFF REVIEW, CBCDIF [facility] Comment on above: Order Comment: Speci men Type: BLOOD SPECIMENOrdering Facility: [facility] Address: [address] [place] [address] Performed By: #### S TFREV ####[facility] LABCLIA [id number] [place] [address] [place]#### 07559-5 ####[facility] LABORATORYCLIA [id number] [place] [address] [place] PT panel Coag (PPP)on 2024 INR Coag (PPP) [Relative time] 1.0 {INR} Normal 0.9-1.3 [facility] Comment on above: Order Comment: Speci men Type: BLOOD SPECIMENOrdering Facility: [facility] Address: [address] [place] [id number] Result Comment: Kendra min K Antagonist (VKA) Therapeutic Range: INR 2 to 3 (Target INR of 2.5)Note: For patients treated with VKA drugs, such as warfarin, the [place] [employer] 2012 Guideline recommends a therapeutic INR range of 2 to 3 (target INR of 2.5). This recommendation includes high-risk patients with antiphospholipid syndrome with previous arterial or venous thromboembolism, current-generation mechanical or bioprosthetic aortic heart valve replacement.Note: Patients with mechanical aortic valve replacement and additional risk factors for thromboembolic events (atrial fibrillation, previous thromboembolism, LV dysfunction, hypercoagulable conditions) or an older generation mechanical AVR (i.e., ball in-Cage) or any mechanical MVR should have a INR therapeutic range of 2.5 to 3.5 (target INR of 3).Norma GH, et al. Chest 2012, 141:7S-47SNishimura RA, et al. [facility] 2017, 70: 252-289 Performed By: #### 3 4528-0 ####[facility] LABORATORYCLIA [id number] [place] [address] [place] PT Coag (PPP) [Time] 10.6 s Normal 9.7-13.[address] [facility] Comment on above: Order Comment: Speci men Type: BLOOD SPECIMENOrdering Facility: [facility] Address: [address] [place] [address] Performed By: #### 3 4528-0 ####[facility] LABORATORYCLIA [id number] [place] [address] [place] Potassium ?Tm Ur-sCncon 11-15 Potassium Unsp time (U) [Moles/Vol] 41.7 mmol/L Normal 10.0-160.0 [facility] Comment on above: Order Comment: Speci men Type: URINE SPECIMENOrdering Facility: [facility] Address: [address] [place] [address] Performed By: #### 3 5678-2, 09778-4, 00109-9 ####[facility] LABCLIA [id number] [place] [id number] [place] Sodium ?Tm Ur-sCncon 025 Sodium Unsp time (U) [Moles/Vol] <20 Normal 14-216 [facility] Comment on above: Order Comment: Speci men Type: URINE SPECIMENOrdering Facility: [facility] Address: [address] [place] [address] Performed By: #### 3 5678-2, 93150-6, 33998-5 ####[facility] LABCLIA [id number] [place] [address] [place] Sodium SerPl-sCncon 12-04-19 25 Sodium [Moles/Vol] 128 mmol/L Low 136-144 [facility] Comment on above: Order Comment: Speci men Type: BLOOD SPECIMENOrdering Facility: [facility] Address: [address] [place] [address] Performed By: #### 2 951-2 ####[facility] LABORATORYCLIA [id number] [place] [address] [place] Sodium [Moles/Vol] 133 mmol/L Low 136-144 [facility] Comment on above: Order Comment: Speci men Type: BLOOD SPECIMENOrdering Facility: [facility] Address: [address] [place] [address] Performed By: #### 2 951-2 ####[facility] LABORATORYCLIA [id number] [place] [address] [place] Sodium [Moles/Vol] 130 mmol/L Low 136-144 [facility] Comment on above: Order Comment: Speci men Type: BLOOD SPECIMENOrdering Facility: [facility] Address: [address] [place] [address] Performed By: #### 2 951-2 ####[facility] LABORATORYCLIA [id number] [place] [address] [place] Sodium [Moles/Vol] 132 mmol/L Low 136-144 [facility] Comment on above: Order Comment: Speci men Type: BLOOD SPECIMENOrdering Facility: [facility] Address: [address] [place] [address] Performed By: #### 2 4323-8, 04572-8, 2951-2 ####[facility] LABORATORYCLIA [id number] [place] [address] [place] Sodium [Moles/Vol] 132 mmol/L Low 136-144 [facility] Comment on above: Order Comment: Speci men Type: BLOOD SPECIMENOrdering Facility: [facility] Address: [address] [place] [address] Performed By: #### 2 951-2 ####[facility] LABORATORYCLIA [id number] [place] [address] [place] THERAPY NTon 12-04-2024 THERAPY NT Normal [facility] ALLIED HEALTHon 12-03-2024 [facility] HEALTH [facility] RUBEN BY IFA SCREENon 12-03-19 Nuclear Ab pattern (S) [Interp] Nuclear homogeneous Normal [facility] Comment on above: Order Comment: Speci men Type: BLOOD SPECIMENOrdering Facility: [facility] Address: [address] [place] [address] Performed By: #### A NAIFS ####[facility] LABCLIA [id number] [place] [address] [place] Nuclear Ab Ql (S) Positive Abnormal Negative [facility] Comment on above: Order Comment: Speci halina Type: BLOOD SPECIMENOrdering Facility: [facility] Address: [address] [place] [address] Result Comment: Anti -nuclear antibody test is used as an aid in diagnosis of systemic autoimmune diseases. Where positive and clinically warranted, follow-up using disease-specific testing is recommended. Low positive titers are not uncommon with advanced age, certain chronic infections, and malignancies among others.Test methodology: Indirect fluorescence immunoassay (IFA) using HEp-2 cells.1:160 Performed By: #### A NAIFS ####[facility] LABCLIA [id number] [place] [id number] [place] CASE MANAGEMon 01-20-2025 [facility] CBC W Auto Differential pane l (Bld)on 12-03-2024 Basophils (Bld) [#/Vol] 0.06 10*3/uL Normal <0.11 [facility] Comment on above: Order Comment: Speci men Type: BLOOD SPECIMENOrdering Facility: [facility] Address: [address] [place] [address] Performed By: #### 5 7021-8 ####[facility] LABORATORYCLIA [id number] [place] [address] [place] Basophils/100 WBC (Bld) 0.3 % Normal [facility] Comment on above: Order Comment: Speci men Type: BLOOD SPECIMENOrdering Facility: [facility] Address: [address] [place] [address] Performed By: #### 5 7021-8 ####[facility] LABORATORYCLIA [id number] [place] [address] [place] Differential cell count method Nom (Bld) Auto Normal [facility] Comment on above: Order Comment: Speci men Type: BLOOD SPECIMENOrdering Facility: [facility] Address: [address] [place] [address] Performed By: #### 5 7021-8 ####[facility] LABORATORYCLIA [id number] [place] [address] [place] Eosinophils (Bld) [#/Vol] 0.18 10*3/uL Normal <0.46 [facility] Comment on above: Order Comment: Speci men Type: BLOOD SPECIMENOrdering Facility: [facility] Address: [address] [place] [address] Performed By: #### 5 7021-8 ####[facility] LABORATORYCLIA [id number] [place] [id number] [place] Eosinophils/100 WBC (Bld) 0.9 % Normal [facility] Comment on above: Order Comment: Speci men Type: BLOOD SPECIMENOrdering Facility: [facility] Address: [address] [place] [address] Performed By: #### 5 7021-8 ####[facility] LABORATORYCLIA [id number] [place] [address] [place] Erythrocyte distribution width (RBC) [Ratio] 15.6 % High 11.5-15.0 [facility] Comment on above: Order Comment: Speci men Type: BLOOD SPECIMENOrdering Facility: [facility] Address: [address] [place] [address] Performed By: #### 5 7021-8 ####[facility] LABORATORYCLIA [id number] [place] [address] [place] Hematocrit (Bld) [Volume fraction] 26.0 % Low 36.0-46.0 [facility] Comment on above: Order Comment: Speci men Type: BLOOD SPECIMENOrdering Facility: [facility] Address: [address] [place] [address] Performed By: #### 5 7021-8 ####[facility] LABORATORYCLIA [id number] [place] [address] [place] Hemoglobin (Bld) [Mass/Vol] 8.5 g/dL Low 11.5-15.5 [facility] Comment on above: Order Comment: Speci men Type: BLOOD SPECIMENOrdering Facility: [facility] Address: [address] [place] [address] Performed By: #### 5 7021-8 ####[facility] LABORATORYCLIA [id number] [place] [address] [place] Immature granulocytes (Bld) [#/Vol] 0.29 10*3/uL High <0.10 [facility] Comment on above: Order Comment: Speci men Type: BLOOD SPECIMENOrdering Facility: [facility] Address: [address] [place] [address] Performed By: #### 5 7021-8 ####[facility] LABORATORYCLIA [id number] [address] [place] Immature granulocytes/100 WBC (Bld) 1.5 % Normal [facility] Comment on above: Order Comment: Speci men Type: BLOOD SPECIMENOrdering Facility: [facility] Address: [address] [place] [address] Performed By: #### 5 7021-8 ####[facility] LABORATORYCLIA [id number] [address] Lymphocytes (Bld) [#/Vol] 0.75 10*3/uL Low 1.00-4.00 [facility] Comment on above: Order Comment: Speci men Type: BLOOD SPECIMENOrdering Facility: [facility] Address: [address] [place] [address] Performed By: #### 5 7021-8 ####[facility]AR[facility] LABORATORYCLIA [id number] [address] Lymphocytes/100 WBC (Bld) 3.8 % Normal [facility] Comment on above: Order Comment: Speci men Type: BLOOD SPECIMENOrdering Facility: [facility] Address: [address] [place] [address] Performed By: #### 5 7021-8 ####VILLARREAL LABORATORYCLIA [id number] [address] STATES [facility] MCH (RBC) [Entitic mass] 28.5 pg Normal 26.0-34.0 [facility] Comment on above: Order Comment: Speci men Type: BLOOD SPECIMENOrdering Facility: [facility] Address: [address] [place] [address] Performed By: #### 5 7021-8 ####VILLAR[facility]AL LABORATORYCLIA [id number] [address] MCHC (RBC) [Mass/Vol] 32.7 g/dL Normal 30.5-36.0 [facility] Comment on above: Order Comment: Speci men Type: BLOOD SPECIMENOrdering Facility: [facility] Address: [address] [place] [address] Performed By: #### 5 7021-8 ####VILLARREAL LABORATORYCLIA [id number] [address] MCV (RBC) [Entitic vol] 87.2 fL Normal 80.0-100.0 M [facility] Comment on above: Order Comment: Speci men Type: BLOOD SPECIMENOrdering Facility: [facility] Address: [address] [place] [address] Performed By: #### 5 7021-8 ####VILLARREAL LABORATORYCLIA [id number] [place] [address] [place] Monocytes (Bld) [#/Vol] 0.93 10*3/uL High <0.87 [facility] Comment on above: Order Comment: Speci men Type: BLOOD SPECIMENOrdering Facility: [facility] Address: [address] [place] [address] Performed By: #### 5 7021-8 ####VILLARREAL LABORATORYCLIA [id number] [address] [place] Monocytes/100 WBC (Bld) 4.7 % Normal [facility] Comment on above: Order Comment: Speci men Type: BLOOD SPECIMENOrdering Facility: [facility] Address: [address] [place] [address] Performed By: #### 5 7021-8 ####VILLARREAL LABORATORYCLIA [id number] [place] [address] [place] Neutrophils (Bld) [#/Vol] 17.78 10*3/uL High 1.45-7.50 [facility] Comment on above: Order Comment: Speci men Type: BLOOD SPECIMENOrdering Facility: [facility] Address: [address] [place] [address] Performed By: #### 5 7021-8 ####VILLARREAL LABORATORYCLIA [id number] [address] [place] Neutrophils/100 WBC (Bld) 88.8 % Normal [facility] Comment on above: Order Comment: Speci men Type: BLOOD SPECIMENOrdering Facility: [facility] Address: [address] [place] [address] Performed By: #### 5 7021-8 ####VILLARREAL LABORATORYCLIA [id number] [place] [address] [place] Nucleated RBC (Bld) [#/Vol] 10*3/uL Normal <0.01 [facility] Comment on above: Order Comment: Speci men Type: BLOOD SPECIMENOrdering Facility: [facility] Address: [address] [place] [address] Performed By: #### 5 7021-8 ####VILLARREAL LABORATORYCLIA [id number] [place] [address] [place] Nucleated RBC/100 WBC (Bld) [Ratio] 0.0 /100 WBC Normal [facility] Comment on above: Order Comment: Speci men Type: BLOOD SPECIMENOrdering Facility: [facility] Address: [address] [place] [address] Performed By: #### 5 7021-8 ####VILLARREAL LABORATORYCLIA [id number] [place] [address] [place] Platelet mean volume (Bld) [Entitic vol] 8.6 fL Low 9.0-12.7 [facility] Comment on above: Order Comment: Speci men Type: BLOOD SPECIMENOrdering Facility: [facility] Address: [address] [place] [address] Performed By: #### 5 7021-8 ####VILLARREAL LABORATORYCLIA [id number] [place] [address] [place] Platelets (Bld) [#/Vol] 442 10*3/uL High 150-400 [facility] Comment on above: Order Comment: Speci men Type: BLOOD SPECIMENOrdering Facility: [facility] Address: [address] [place] [address] Performed By: #### 5 7021-8 ####VILLARREAL LABORATORYCLIA [id number] [place] [address] [place] RBC (Bld) [#/Vol] 2.98 10*6/uL Low 3.90-5.20 [facility] Comment on above: Order Comment: Speci men Type: BLOOD SPECIMENOrdering Facility: [facility] Address: [address] [place] [address] Performed By: #### 5 7021-8 ####VILLARREAL LABORATORYCLIA [id number] [place] [address] [place] WBC (Bld) [#/Vol] 19.99 10*3/uL High 3.70-11.[address] [facility] Comment on above: Order Comment: Speci men Type: BLOOD SPECIMENOrdering Facility: [facility] Address: [address] [place] [id number] Performed By: #### 5 7021-8 ####[facility] LABORATORYCLIA [id number] [place] [address] [place] CONSULTon 12-03-2024 CONSULT Normal [facility] CONSULT Normal [facility] CONSULT PROGon 12-03-2024 CONSULT PROG Normal [facility] CONSULT PROG Normal [facility] CONSULT PROG Normal [facility] CRP SerPl-mCncon 12-03-2024 CRP [Mass/Vol] 20.0 mg/dL High <0.9 [facility] Comment on above: Order Comment: Speci men Type: BLOOD SPECIMENOrdering Facility: [facility] Address: [facility] [place] [address] Performed By: #### 1 988-5, 71927-9, ####[facility] LABORATORYCLIA [id number] [place] [address] [place] CHEST WO IVCONon 12-03-19 CT CHEST WO IVCON Invalid Interpretation Code [facility] Comprehensive metabolic 2000 panelon 12-03-2024 Albumin [Mass/Vol] 2.5 g/dL Low 3.9-4.9 [facility] Comment on above: Order Comment: Speci men Type: BLOOD SPECIMENOrdering Facility: [facility] Address: [facility] [address] [place] [id number] Performed By: #### 1 988-5, 28733-8, ####VILLARREAL LABORATORYCLIA [id number] [place] [id number] [place] ALP [Catalytic activity/Vol] 93 U/L Normal 34-123 [facility] Comment on above: Order Comment: Speci men Type: BLOOD SPECIMENOrdering Facility: [facility] Address: [facility] [place] [address] Performed By: #### 1 988-5, 53431-3, ####VILLARREAL LABORATORYCLIA [id number] [place] [address] [place] ALT [Catalytic activity/Vol] U/L Low 7-38 [facility] Comment on above: Order Comment: Speci men Type: BLOOD SPECIMENOrdering Facility: [facility] Address: [address] [place] [address] Performed By: #### 1 988-5, , ####VILLARREAL LABORATORYCLIA [id number] [place] [address] [place] Anion gap [Moles/Vol] 10 mmol/L Normal 8-15 [facility] Comment on above: Order Comment: Speci men Type: BLOOD SPECIMENOrdering Facility: [facility] Address: [address] [place] [address] Performed By: #### 1 988-5, , ####VILLARREAL LABORATORYCLIA [id number] [place] [address] [place] AST [Catalytic activity/Vol] 15 U/L Normal 13-35 [facility] Comment on above: Order Comment: Speci men Type: BLOOD SPECIMENOrdering Facility: [facility] Address: [address] [place] [address] Performed By: #### 1 988-5, , ####VILLARREAL LABORATORYCLIA [id number] [place] [address] [place] Bilirubin [Mass/Vol] 0.2 mg/dL Normal 0.2-1.[address] [facility] Comment on above: Order Comment: Speci men Type: BLOOD SPECIMENOrdering Facility: [facility] Address: [address] [place] [address] Performed By: #### 1 988-5, , ####VILLARREAL LABORATORYCLIA [id number] [place] [address] [place] Calcium [Mass/Vol] 9.2 mg/dL Normal 8.5-10.2 [facility] Comment on above: Order Comment: Speci men Type: BLOOD SPECIMENOrdering Facility: [facility] Address: [address] [place] [address] Performed By: #### 1 988-5, 09163-1, ####VILLARREAL LABORATORYCLIA [id number] [place] [address] [place] [facility] Chloride [Moles/Vol] 94 mmol/L Low 98-[address] [facility] Comment on above: Order Comment: Fan meade Type: BLOOD SPECIMENOrdering Facility: [facility] Address: [address] [place] [address] Performed By: #### 1 988-5, 07723-5, ####[facility] LABORATORYCLIA [id number] [address] [place] CO2 [Moles/Vol] 24 mmol/L Normal 22-30 [facility] Comment on above: Order Comment: Fan meade Type: BLOOD SPECIMENOrdering Facility: [facility] Address: [address] [place] [address] Performed By: #### 1 988-5, 97977-0, ####[facility] LABORATORYCLIA [id number] [address] STATES OF [facility] Creatinine [Mass/Vol] 0.92 mg/dL Normal 0.58-0.96 [facility] Comment on above: Order Comment: Fan meade Type: BLOOD SPECIMENOrdering Facility: [facility] Address: [address] [place] [address] Performed By: #### 1 988-5, 60151-3, ####[facility] LABORATORYCLIA [id number] [address] Creatinine and Glomerular filtration rate.predicted panel (S/P/Bld) 60 mL/min/1.73m??? Normal >=60 [facility] Comment on above: Order Comment: Fan meade Type: BLOOD SPECIMENOrdering Facility: [facility] Address: [address] [place] [address] Result Comment: Hilda mated Glomerular Filtration Rate (eGFR) is calculated using the 2020 CKD-EPI creatinine equation. This equation utilizes serum creatinine, sex, and age as parameters. The creatinine assay has traceable calibration to isotope dilution-mass spectrometry. Refer to KDIGO guidelines for clinical interpretation. In patients with unstable renal function, e.g. those with acute kidney injury, the eGFR may not accurately reflect actual GFR. Performed By: #### 1 988-5, 72320-3, ####[facility] LABORATORYCLIA [id number] [place] [address] [place] Glucose [Mass/Vol] 246 mg/dL High 74-99 [facility] Comment on above: Order Comment: Speci men Type: BLOOD SPECIMENOrdering Facility: [facility] Address: [address] [place] [address] Result Comment: The [place] Diabetes Association (ADA) provides guidance for cutoff values for fasting glucose and random glucose. The ADA defines fasting as no caloric intake for at least 8 hours. Fasting plasma glucose results between 100 to 125 mg/dL indicate increased risk for diabetes (prediabetes).Fasting plasma glucose results greater than or equal to 126 mg/dL meet the criteria for diagnosis of diabetes. In the absence of unequivocal hyperglycemia, results should be confirmed by repeat testing. In a patient with classic symptoms of hyperglycemia or hyperglycemic crisis, random plasma glucose results greater than or equal to 200 mg/dL meet the criteria for diagnosis of diabetes.Reference: Standards of Medical Care in Diabetes 2016, [place] Diabetes Association. Diabetes Care. 2016.39(Suppl 1). Performed By: #### 1 988-5, 41958-0, ####[facility] LABORATORYCLIA [id number] [place] [id number] [place] Potassium [Moles/Vol] 4.6 mmol/L Normal 3.7-5.1 [facility] Comment on above: Order Comment: Speci men Type: BLOOD SPECIMENOrdering Facility: [facility] Address: [address] [place] [address] Performed By: #### 1 988-5, 62812-3, ####[facility] LABORATORYCLIA [id number] [place] [address] [place] Protein [Mass/Vol] 5.7 g/dL Low 6.3-8.0 [facility] Comment on above: Order Comment: Katei men Type: BLOOD SPECIMENOrdering Facility: [facility] Address: [address] [place], [place] [address] Performed By: #### 1 988-5, 07731-1, ####[facility] LABORATORYCLIA [id number] [place] [address] [place] Sodium [Moles/Vol] 128 mmol/L Low 136-144 [facility] Comment on above: Order Comment: Speci men Type: BLOOD SPECIMENOrdering Facility: [facility] Address: [address] [place] [address] Performed By: #### 1 988-5, 96845-1, 20027-1 ####[facility] LABORATORYCLIA [id number] [place] [address] [place] Urea nitrogen [Mass/Vol] 37 mg/dL High 7-21 [facility] Comment on above: Order Comment: Speci men Type: BLOOD SPECIMENOrdering Facility: [facility] Address: [address] [place] [address] Performed By: #### 1 988-5, 69058-7, 56461-1 ####[facility] LABORATORYCLIA [id number] [place] [address] [place] Cyclic citrullinated peptide IgG Qnon 12-03-2024 CCP ANTIBODY IGG QUALITATIVE Negative Normal Negative [facility] Comment on above: Order Comment: Speci men Type: BLOOD SPECIMENOrdering Facility: [facility] Address: [address] [place] [address] Performed By: #### 3 3935-8 ####[facility] LABCLIA [id number] [place] [address] [place] ESR Westergren method (Bld) [Velocity]on 12-03-2024 ESR (Bld) [Velocity] 124 mm/h High 0-[address] [facility] Comment on above: Order Comment: Speci men Type: BLOOD SPECIMENOrdering Facility: [facility] Address: [address] [place] [address] Performed By: #### 4 537-7 ####[facility] LABCLIA [id number] [place] [address] [place] Magnesium SerPl-mCncon 12-03 Magnesium [Mass/Vol] 1.8 mg/dL Normal 1.7-2.[address] [facility] Comment on above: Order Comment: Speci men Type: BLOOD SPECIMENOrdering Facility: [facility] Address: [address] [place] [address] Performed By: #### 1 988-5, 93765-2, 11944-7 ####VILLARREAL LABORATORYCLIA [id number] [place] [address] [place] Rheumatoid fact SerPl-aCncon 12-03-2024 Rheumatoid factor Qn 19 [IU]/mL High <[address] [facility] Comment on above: Order Comment: Speci men Type: BLOOD SPECIMENOrdering Facility: [facility] Address: [address] [place] [address] Performed By: #### 1 1572-5 ####[facility] LABCLIA [id number] [place] [address] [place] Sodium SerPl-sCncon 12-03-19 25 Sodium [Moles/Vol] 129 mmol/L Low 136-144 [facility] Comment on above: Order Comment: Speci men Type: BLOOD SPECIMENOrdering Facility: [facility] Address: [address] [place] [address] Performed By: #### 2 951-2 ####VILLARRE[facility] LABORATORYCLIA [id number] [place] [address] [place] Sodium [Moles/Vol] 130 mmol/L Low 136-144 [facility] Comment on above: Order Comment: Speci men Type: BLOOD SPECIMENOrdering Facility: [facility] Address: [address] [place] [address] Performed By: #### 2 951-2 ####VILLARREAL LABORATORYCLIA [id number] [place] [address] [place] Sodium [Moles/Vol] 128 mmol/L Low 136-144 [facility] Comment on above: Order Comment: Speci men Type: BLOOD SPECIMENOrdering Facility: [facility] Address: [address] [place] [address] Performed By: #### 2 951-2 ####VILLARREAL LABORATORYCLIA [id number] [place] [address] [place] THERAPY NTon 12-03-2024 THERAPY NT Normal [facility] THERAPY NT Normal [facility] THERAPY NT Normal [facility] cCP IgG SerPl-aCncon 025 Cyclic citrullinated peptide IgG Qn <15 Normal <20 [facility] Comment on above: Order Comment: Speci men Type: BLOOD SPECIMENOrdering Facility: [facility] Address: [address] [place] [address] Performed By: #### 3 3935-8 ####[facility] LABCLIA [id number] [place] [address] [place] 25(OH)D3 SerPl-mCncon 2024 25-hydroxyvitamin D3 [Mass/Vol] 13.4 ng/mL Low 31.0-80.0 [facility] Comment on above: Order Comment: Speci men Type: BLOOD SPECIMENOrdering Facility: [facility] Address: [address] [place] [address] Result Comment: Clas sification of 25 [place] Vitamin D status:Deficiency/Insufficiency: < or = 30 ng/ml.Sufficiency/Optimal Levels: 31-80 ng/mLToxicity: > 100 ng/mL.Test performed by chemiluminescent immunoassay. Performed By: #### 1 989-3, 14443-1, 98518-3, [facility], 6969-0 ####[facility] LABCLIA [id number] [place] [address] [place] ALLIED HEALTHon 12-02-2024 ALLIED HEALTH Normal [facility] ALLIED HEALTH [facility] ARTERIAL BLOOD GASESon 12-02 Base excess Calc (Bld) [Moles/Vol] 4 mmol/L High 0-2 [facility] Comment on above: Order Comment: Speci men Type: ARTERIAL BLOOD SPECIMENOrdering Facility: [facility] Address: [address] [place] [address] Performed By: #### A LLBG ####[place] RESPIRATORYCLIA [id number] [facility]OSP[facility] RESPIRATORY [id number] [address] [address] Carboxyhemoglobin (BldA) [Mass fraction] 1.4 % Normal 0.0-2.0 [facility] Comment on above: Order Comment: Speci men Type: ARTERIAL BLOOD SPECIMENOrdering Facility: [facility] Address: [address] [place] [address] Result Comment: Carb oxyhemoglobin Reference Range for Smokers: 2.0-8.0% Performed By: #### A LLBG ####[facility]PIRATORYWH[facility] [id number] [facility]OSP[facility] RESPIRATORY [id number] [address] [address] CO2 (Bld) [Partial pressure] 41 mm Hg Normal 36-46 [facility] Comment on above: Order Comment: Speci men Type: ARTERIAL BLOOD SPECIMENOrdering Facility: [facility] Address: [address] [place] [address] Performed By: #### A LLBG ####[facility] [facility]PIRATORYWH[facility] [id number] HOSP[facility]AT[facility] [id number] [address] [address] CO2 adjusted to patient's actual temperature (Bld) [Partial pressure] Normal [facility] Comment on above: Order Comment: Speci men Type: ARTERIAL BLOOD SPECIMENOrdering Facility: [facility] Address: [address] [place] [address] Performed By: #### A LLBG ####[place] [facility]PIRATORYWH[facility] [id number] [facility] RESPIRAT[facility] [id number] [address] HCO3 (Bld) [Moles/Vol] 28 mmol/L High 22-26 [facility] Comment on above: Order Comment: Speci men Type: ARTERIAL BLOOD SPECIMENOrdering Facility: [facility] Address: [address] [place] [address] Performed By: #### A LLBG ####[facility] [id number] [facility] RESPIRATORY [id number] [address] Hemoglobin (Bld) [Mass/Vol] 10.3 g/dL Low 11.5-15.5 [facility] Comment on above: Order Comment: Speci men Type: ARTERIAL BLOOD SPECIMENOrdering Facility: [facility] Address: [address] [place] [address] Performed By: #### A LLBG ####[place] RESPIRATORYIA [id number] [facility] [id number] [address] [address] Lactate [Moles/Vol] 1.0 mmol/L Normal 0.5-2.2 [facility] Comment on above: Order Comment: Speci men Type: ARTERIAL BLOOD SPECIMENOrdering Facility: [facility] Address: [address] [place] [id number] Performed By: #### A LLBG ####[place] [facility]ORYWH[facility] [id number] [facility]OS[facility] RESPIRATORY [id number] [address] Methemoglobin (Bld) [Mass fraction] % Normal 0.0-1.5 [facility] Comment on above: Order Comment: Speci men Type: ARTERIAL BLOOD SPECIMENOrdering Facility: [facility] Address: [address] [place] [place] [id number] Performed By: #### A LLBG ####[place] [facility]ORYWH[facility] [id number] [facility]OS[facility] RESPIRATORY [id number] [address] O2 THERAPY RA=[facility] Comment on above: Order Comment: Speci men Type: ARTERIAL BLOOD SPECIMENOrdering Facility: [facility] Address: [address] [place] [address] Performed By: #### A LLBG ####[place] [facility]ORYWH[facility] [id number] [facility]OS[facility] RESPIRATORY [id number] [address] [address] Oxygen (Bld) [Partial pressure] 61 mm Hg Low 85-95 [facility] Comment on above: Order Comment: Speci men Type: ARTERIAL BLOOD SPECIMENOrdering Facility: [facility] Address: [address] [place] [address] Performed By: #### A LLBG ####[place] [facility]ORYWH[facility] [id number] [facility]OSP[facility] RES[facility]IRAT[facility] [id number] [address] [address] Oxygen adjusted to patient's actual temperature (Bld) [Partial pressure] Normal [facility] Comment on above: Order Comment: Speci men Type: ARTERIAL BLOOD SPECIMENOrdering Facility: [facility] Address: [address] [place] [address] Performed By: #### A LLBG ####[place] RESPIRATORYIA [id number] [facility]OSP[facility] RES[facility] [id number] [address] Oxyhemoglobin (BldA) [Mass fraction] 90 % Low 95-98 [facility] Comment on above: Order Comment: Speci men Type: ARTERIAL BLOOD SPECIMENOrdering Facility: [facility] Address: [address] [place] [address] Performed By: #### A LLBG ####[place] [facility]ORY[id number] HOSPITAL RESPIRATORY [id number] [address] pH (Bld) 7.45 [pH] Normal 7.35-7.45 [facility] Comment on above: Order Comment: Speci men Type: ARTERIAL BLOOD SPECIMENOrdering Facility: [facility] Address: [address] [place] [address] Performed By: #### A LLBG ####[place] [facility]ORY[id number] [facility] [id number] [address] [address] pH adjusted to patient's actual temperature (Bld) Normal [facility] Comment on above: Order Comment: Speci men Type: ARTERIAL BLOOD SPECIMENOrdering Facility: [facility] Address: [address] [place] [address] Performed By: #### A LLBG ####[place] RESPIRATORYIA [id number] HOSP[facility] RESPIRATORY [id number] [address] [address] PO2 / FIO2 RATIO 290 mmHg Low >300 [facility] Comment on above: Order Comment: Speci men Type: ARTERIAL BLOOD SPECIMENOrdering Facility: [facility] Address: [address] [place] [address] Performed By: #### A LLBG ####[place] [facility]ORY[id number] [facility] [id number] [address] Potassium [Moles/Vol] 4.0 mmol/L Normal 3.5-5.0 [facility] Comment on above: Order Comment: Speci men Type: ARTERIAL BLOOD SPECIMENOrdering Facility: [facility] Address: [address] [place] [address] Performed By: #### A LLBG ####[facility] RESPIRATORYCLIA [id number] [id number] [place] [address] Ammonia Plas-sCncon 12-02-19 25 Ammonia (P) [Moles/Vol] 14 umol/L Normal 11-51 [facility] Comment on above: Order Comment: Speci men Type: BLOOD SPECIMENOrdering Facility: [facility] Address: [address] [place] [address] Performed By: #### 1 6362-6 ####[facility] LABORATORYCLIA [id number] [place] [address] [place] CBC W Auto Differential pane l (Bld)on 12-02-2024 Basophils (Bld) [#/Vol] 0.06 10*3/uL Normal <0.11 [facility] Comment on above: Order Comment: Speci men Type: BLOOD SPECIMENOrdering Facility: [facility] Address: [address] [place] [address] Performed By: #### 5 7021-8 ####[facility] LABORATORYCLIA [id number] [place] [address] [place] Basophils/100 WBC (Bld) 0.3 % Normal [facility] Comment on above: Order Comment: Speci men Type: BLOOD SPECIMENOrdering Facility: [facility] Address: [address] [place] [address] Performed By: #### 5 7021-8 ####VILLARREAL LABORATORYCLIA [id number] [place] [address] [place] Differential cell count method Nom (Bld) Auto Normal [facility] Comment on above: Order Comment: Speci men Type: BLOOD SPECIMENOrdering Facility: [facility] Address: [address] [place] [address] Performed By: #### 5 7021-8 ####VILLARREAL LABORATORYCLIA [id number] [address] [place] Eosinophils (Bld) [#/Vol] 0.24 10*3/uL Normal <0.46 [facility] Comment on above: Order Comment: Speci men Type: BLOOD SPECIMENOrdering Facility: [facility] Address: [address] [place] [address] Performed By: #### 5 7021-8 ####VILLARREAL LABORATORYCLIA [id number] [address] Eosinophils/100 WBC (Bld) 1.2 % Normal [facility] Comment on above: Order Comment: Speci men Type: BLOOD SPECIMENOrdering Facility: [facility] Address: [address] [place] [address] Performed By: #### 5 7021-8 ####VILLARREAL LABORATORYCLIA [id number] [address] [place] Erythrocyte distribution width (RBC) [Ratio] 15.6 % High 11.5-15.0 [facility] Comment on above: Order Comment: Speci men Type: BLOOD SPECIMENOrdering Facility: [facility] Address: [address] [place] [address] Performed By: #### 5 7021-8 ####VILLARREAL LABORATORYCLIA [id number] [address] Hematocrit (Bld) [Volume fraction] 27.1 % Low 36.0-46.0 [facility] Comment on above: Order Comment: Speci men Type: BLOOD SPECIMENOrdering Facility: [facility] Address: [address] [place] [address] Performed By: #### 5 7021-8 ####VILLARREAL LABORATORYCLIA [id number] [address] [place] Hemoglobin (Bld) [Mass/Vol] 9.0 g/dL Low 11.5-15.5 [facility] Comment on above: Order Comment: Speci men Type: BLOOD SPECIMENOrdering Facility: [facility] Address: [address] [place] [address] Performed By: #### 5 7021-8 ####VILLARREAL LABORATORYCLIA [id number] [address] [place] Immature granulocytes (Bld) [#/Vol] 0.23 10*3/uL High <0.10 [facility] Comment on above: Order Comment: Speci men Type: BLOOD SPECIMENOrdering Facility: [facility] Address: [address] [place] [address] Performed By: #### 5 7021-8 ####VILLARREAL LABORATORYCLIA [id number] [address] Immature granulocytes/100 WBC (Bld) 1.2 % Normal [facility] Comment on above: Order Comment: Speci men Type: BLOOD SPECIMENOrdering Facility: [facility] Address: [address] [place] [address] Performed By: #### 5 7021-8 ####VILLRAREAL LABORATORYCLIA [id number] [address] [place] Lymphocytes (Bld) [#/Vol] 0.92 10*3/uL Low 1.00-4.00 [facility] Comment on above: Order Comment: Speci men Type: BLOOD SPECIMENOrdering Facility: [facility] Address: [address] [place] [address] Performed By: #### 5 7021-8 ####VILLARREAL LABORATORYCLIA [id number] [address] Lymphocytes/100 WBC (Bld) 4.7 % Normal [facility] Comment on above: Order Comment: Speci men Type: BLOOD SPECIMENOrdering Facility: [facility] Address: [address] [place] [address] Performed By: #### 5 7021-8 ####VILLARREAL LABORATORYCLIA [id number] [place] [address] [place] MCH (RBC) [Entitic mass] 28.2 pg Normal 26.0-34.0 [facility] Comment on above: Order Comment: Speci men Type: BLOOD SPECIMENOrdering Facility: [facility] Address: [address] [place] [address] Performed By: #### 5 7021-8 ####VILLARREAL LABORATORYCLIA [id number] [place] [id number] [place] MCHC (RBC) [Mass/Vol] 33.2 g/dL Normal 30.5-36.0 [facility] Comment on above: Order Comment: Speci men Type: BLOOD SPECIMENOrdering Facility: [facility] Address: [address] [place] [address] Performed By: #### 5 7021-8 ####VILLARREAL LABORATORYCLIA [id number] [place] [address] [place] MCV (RBC) [Entitic vol] 85.0 fL Normal 80.0-100.0 [facility] Comment on above: Order Comment: Speci men Type: BLOOD SPECIMENOrdering Facility: [facility] Address: [address] [place] [address] Performed By: #### 5 7021-8 ####VILLARREAL LABORATORYCLIA [id number] [place] [address] [place] Monocytes (Bld) [#/Vol] 1.07 10*3/uL High <0.87 [facility] Comment on above: Order Comment: Speci men Type: BLOOD SPECIMENOrdering Facility: [facility] Address: [address] [place] [address] Performed By: #### 5 7021-8 ####VILLARREAL LABORATORYCLIA [id number] [address] Monocytes/100 WBC (Bld) 5.4 % Normal [facility] Comment on above: Order Comment: Speci men Type: BLOOD SPECIMENOrdering Facility: [facility] Address: [address] [place] [address] Performed By: #### 5 7021-8 ####VILLARREAL LABORATORYCLIA [id number] [place] [id number] [place] Neutrophils (Bld) [#/Vol] 17.12 10*3/uL High 1.45-7.50 [facility] Comment on above: Order Comment: Speci men Type: BLOOD SPECIMENOrdering Facility: [facility] Address: [address] [place] [address] Performed By: #### 5 7021-8 ####VILLARREAL LABORATORYCLIA [id number] [address] Neutrophils/100 WBC (Bld) 87.2 % Normal [facility] Comment on above: Order Comment: Speci men Type: BLOOD SPECIMENOrdering Facility: [facility] Address: [address] [place] [address] Performed By: #### 5 7021-8 ####VILLARREAL LABORATORYCLIA [id number] [place] [address] [place] Nucleated RBC (Bld) [#/Vol] 10*3/uL Normal <0.01 [facility] Comment on above: Order Comment: Speci men Type: BLOOD SPECIMENOrdering Facility: [facility] Address: [address] [place] [address] Performed By: #### 5 7021-8 ####VILLARREAL LABORATORYCLIA [id number] [address] [place] Nucleated RBC/100 WBC (Bld) [Ratio] 0.0 /100 WBC Normal [facility] Comment on above: Order Comment: Speci men Type: BLOOD SPECIMENOrdering Facility: [facility] Address: [address] [place] [address] Performed By: #### 5 7021-8 ####VILLARREAL LABORATORYCLIA [id number] [address] [place] Platelet mean volume (Bld) [Entitic vol] 8.8 fL Low 9.0-12.7 [facility] Comment on above: Order Comment: Speci men Type: BLOOD SPECIMENOrdering Facility: [facility] Address: [address] [place] [address] Performed By: #### 5 7021-8 ####VILLARREAL LABORATORYCLIA [id number] [address] [place] Platelets (Bld) [#/Vol] 439 10*3/uL High 150-400 [facility] Comment on above: Order Comment: Speci men Type: BLOOD SPECIMENOrdering Facility: [facility] Address: [address] [place] [address] Performed By: #### 5 7021-8 ####VILLARREAL LABORATORYCLIA [id number] [place] [address] [place] RBC (Bld) [#/Vol] 3.19 10*6/uL Low 3.90-5.20 [facility] Comment on above: Order Comment: Speci men Type: BLOOD SPECIMENOrdering Facility: [facility] Address: [address] [place] [address] Performed By: #### 5 7021-8 ####VILLARREAL LABORATORYCLIA [id number] [place] [address] [place] WBC (Bld) [#/Vol] 19.64 10*3/uL High 3.70-11.[address] [facility] Comment on above: Order Comment: Speci men Type: BLOOD SPECIMENOrdering Facility: [facility] Address: [address] [place] [address] Performed By: #### 5 7021-8 ####[facility] LABORATORYCLIA [id number] [address] [place] CK SerPl-cCncon 12-02-2024 CK [Catalytic activity/Vol] 48 U/L Normal 42-196 [facility] Comment on above: Order Comment: Speci men Type: BLOOD SPECIMENOrdering Facility: [facility] Address: [address] [place] [address] Performed By: #### 2 951-2, 2157-6, 3084-1 ####[facility] LABORATORYCLIA [id number] [address] OF [facility] CONSULT PROGon 12-02-2024 CONSULT PROG Normal [facility] CRP SerPl-mCncon 12-02-2024 CRP [Mass/Vol] 14.2 mg/dL High <0.9 [facility] Comment on above: Order Comment: Speci men Type: BLOOD SPECIMENOrdering Facility: [facility] Address: [address] [place] [address] Performed By: #### 3 084-1, 44636-0, 15185-3, 1987 ####VILLARREAL LABORATORYCLIA [id number] [place] [address] [place] Comprehensive metabolic 2000 panelon 12-02-2024 Albumin [Mass/Vol] 2.3 g/dL Low 3.9-4.9 [facility] Comment on above: Order Comment: Speci men Type: BLOOD SPECIMENOrdering Facility: [facility] Address: [address] [place] [address] Performed By: #### 3 084-1, , , 1988-03 ####VILLARREAL LABORATORYCLIA [id number] [place] [address] [place] ALP [Catalytic activity/Vol] 94 U/L Normal 34-123 [facility] Comment on above: Order Comment: Speci men Type: BLOOD SPECIMENOrdering Facility: [facility] Address: [address] [place] [address] Performed By: #### 3 084-1, , , 1988-03 ####VILLARREAL LABORATORYCLIA [id number] [place] [address] [place] ALT [Catalytic activity/Vol] U/L Low 7-38 [facility] Comment on above: Order Comment: Speci men Type: BLOOD SPECIMENOrdering Facility: [facility] Address: [address] [place] [address] Performed By: #### 3 084-1, , , 1988-03 ####VILLARREAL LABORATORYCLIA [id number] [place] [address] [place] Anion gap [Moles/Vol] 11 mmol/L Normal 8-15 [facility] Comment on above: Order Comment: Speci men Type: BLOOD SPECIMENOrdering Facility: [facility] Address: [address] [place] [address] Performed By: #### 3 084-1, , , 1988-03 ####VILLARREAL LABORATORYCLIA [id number] [place] [address] [place] AST [Catalytic activity/Vol] 15 U/L Normal 13-35 [facility] Comment on above: Order Comment: Speci men Type: BLOOD SPECIMENOrdering Facility: [facility] Address: [facility] [place] [address] Performed By: #### 3 084-1, , , 1988-03 ####VILLARREAL LABORATORYCLIA [id number] [place] [address] [place] Bilirubin [Mass/Vol] 0.2 mg/dL Normal 0.2-1.[address] [facility] Comment on above: Order Comment: Speci men Type: BLOOD SPECIMENOrdering Facility: [facility] Address: [address] [place] [address] Performed By: #### 3 084-1, , , 1988-03 ####[facility] LABORATORYCLIA [id number] [place] [address] [place] Calcium [Mass/Vol] 9.0 mg/dL Normal 8.5-10.2 [facility] Comment on above: Order Comment: Speci men Type: BLOOD SPECIMENOrdering Facility: [facility] Address: [address] [place] [address] Performed By: #### 3 084-1, , , 1988-03 ####[facility] LABORATORYCLIA [id number] [place] [address] [place] Chloride [Moles/Vol] 93 mmol/L Low 98-[address] [facility] Comment on above: Order Comment: Speci men Type: BLOOD SPECIMENOrdering Facility: [facility] Address: [address] [place] [address] Performed By: #### 3 084-1, , , 1988-03 ####[facility] LABORATORYCLIA [id number] [place] [address] [place] CO2 [Moles/Vol] 24 mmol/L Normal 22-30 [facility] Comment on above: Order Comment: Speci men Type: BLOOD SPECIMENOrdering Facility: [facility] Address: [address] [place] [address] Performed By: #### 3 08-1, , , 1988-03 ####[facility] LABORATORYCLIA [id number] [place] [address] [place] [facility] Creatinine [Mass/Vol] 0.89 mg/dL Normal 0.58-0.96 [facility] Comment on above: Order Comment: Fan meade Type: BLOOD SPECIMENOrdering Facility: [facility] Address: [address] [place] [address] Performed By: #### 3 084-1, , , 1988-03 ####[facility] LABORATORYCLIA [id number] [place] [address] [facility] Creatinine and Glomerular filtration rate.predicted panel (S/P/Bld) 62 mL/min/1.73m??? Normal >=60 [facility] Comment on above: Order Comment: [facility] Type: BLOOD SPECIMENOrdering Facility: [facility] Address: [address] [place] [address] Result Comment: Hilda mated Glomerular Filtration Rate (eGFR) is calculated using the 2020 CKD-EPI creatinine equation. This equation utilizes serum creatinine, sex, and age as parameters. The creatinine assay has traceable calibration to isotope dilution-mass spectrometry. Refer to KDIGO guidelines for clinical interpretation. In patients with unstable renal function, e.g. those with acute kidney injury, the eGFR may not accurately reflect actual GFR. Performed By: #### 3 084-1, , , 1988-03 ####[facility] LABORATORYCLIA [id number] [place] [address] [place] Glucose [Mass/Vol] 289 mg/dL High 74-99 [facility] Comment on above: Order Comment: Fan [facility] Type: BLOOD SPECIMENOrdering Facility: [facility] Address: [address] [place] [address] Result Comment: The [place] Diabetes Association (ADA) provides guidance for cutoff values for fasting glucose and random glucose. The ADA defines fasting as no caloric intake for at least 8 hours. Fasting plasma glucose results between 100 to 125 mg/dL indicate increased risk for diabetes (prediabetes).Fasting plasma glucose results greater than or equal to 126 mg/dL meet the criteria for diagnosis of diabetes. In the absence of unequivocal hyperglycemia, results should be confirmed by repeat testing. In a patient with classic symptoms of hyperglycemia or hyperglycemic crisis, random plasma glucose results greater than or equal to 200 mg/dL meet the criteria for diagnosis of diabetes.Reference: Standards of Medical Care in Diabetes 2016, [place] Diabetes Association. Diabetes Care. 2016.39(Suppl 1). Performed By: #### 3 084-1, , , 1988-03 ####VILLARREAL LABORATORYCLIA [id number] [place] [address] [place] Potassium [Moles/Vol] 4.4 mmol/L Normal 3.7-5.1 [facility] Comment on above: Order Comment: Fan meade Type: BLOOD SPECIMENOrdering Facility: [facility] Address: [address] [place] [address] Performed By: #### 3 084-1, , , 1988-03 ####VILLARREAL LABORATORYCLIA [id number] [place] [address] [place] Protein [Mass/Vol] 5.6 g/dL Low 6.3-8.0 [facility] Comment on above: Order Comment: Fan meade Type: BLOOD SPECIMENOrdering Facility: [facility] Address: [address] [place] [address] Performed By: #### 3 084-1, , , 1988-03 ####VILLARREAL LABORATORYCLIA [id number] [place] [address] [place] Sodium [Moles/Vol] 128 mmol/L Low 136-144 [facility] Comment on above: Order Comment: Fan meade Type: BLOOD SPECIMENOrdering Facility: [facility] Address: [address] [place] [address] Performed By: #### 3 084-1, , , 1988-03 ####VILLARREAL LABORATORYCLIA [id number] [place] [address] [place] Urea nitrogen [Mass/Vol] 36 mg/dL High 7-21 [facility] Comment on above: Order Comment: Speci men Type: BLOOD SPECIMENOrdering Facility: [facility] Address: [address] [place] [address] Performed By: #### 3 084-1, 07544-2, 30259-5, 1988-03 ####[facility] LABORATORYCLIA [id number] [place] [address] [place] DNA double strand Ab IA Qn ( S)on 12-02-2024 DNA ANTIBODY 117 IU/mL Normal <=200 [facility] Comment on above: Order Comment: Speci men Type: BLOOD SPECIMENOrdering Facility: [facility] Address: [address] [place] [address] Result Comment: Nega tive: <200 IU/mLEquivocal: 201-300 IU/mLModerate Positive: 301-800 IU/mLStrong Positive: >801 IU/mL Performed By: #### 1 989-3, 85435-8, 38109-8, ANCAC, 6969-0 ####[facility] LABCLIA [id number] [address] [place] DNA ANTIBODY QUALITATIVE INTERPRETATION Negative Normal Negative [facility] Comment on above: Order Comment: Speci men Type: BLOOD SPECIMENOrdering Facility: [facility] Address: [address] [place] [address] Performed By: #### 1 989-3, 13108-6, 13314-7, ANCAC, 6969-0 ####[facility] LABCLIA [id number] [place] [address] [place] ESR Westergren method (Bld) [Velocity]on 12-02-2024 ESR (Bld) [Velocity] 120 mm/h High 0-[address] [facility] Comment on above: Order Comment: Speci men Type: BLOOD SPECIMENOrdering Facility: [facility] Address: [address] [place] [address] Performed By: #### 4 537-7 ####[facility] LABCLIA [id number] [place] [address] [place] MRI BRAIN WO/W IVCONon 12-02 MRI BRAIN WO/W IVCON Normal [facility] MRI CERVICAL SPINE WO/W IVCO Non 12-02-2024 MRI CERVICAL SPINE WO/W IVCON Normal [facility] MRI LUMBAR SPINE WO/W IVCONo n 12-02-2024 MRI LUMBAR SPINE WO/W IVCON Normal [facility] MRI THORACIC SPINE WO/W IVCO Non 12-02-2024 MRI THORACIC SPINE WO/W IVCON Normal [facility] Magnesium SerPl-mCncon 12-02 Magnesium [Mass/Vol] 1.5 mg/dL Low 1.7-2.[address] [facility] Comment on above: Order Comment: Speci men Type: BLOOD SPECIMENOrdering Facility: [facility] Address: [address] [place] [address] Performed By: #### 3 084-1, 20361-5, 28419-8, 1988-03 ####[facility] LABORATORYCLIA [id number] [place] [address] [place] Myeloperoxidase Ab Ser-aCnco n 12-02-2024 Myeloperoxidase Ab Qn (S) <0.2 Normal <1.0 [facility] Comment on above: Order Comment: Speci men Type: BLOOD SPECIMENOrdering Facility: [facility] Address: [address] [place] [address] Performed By: #### 1 989-3, 54360-3, 95275-0, [facility], 6969-0 ####[facility] LABCLIA [id number] [place] [id number] [place] Osmolality SerPlon Osmolality [Osmolality] 285 mosm/kg Normal 275-300 [facility] Comment on above: Order Comment: Speci men Type: BLOOD SPECIMENOrdering Facility: [facility] Address: [address] [place] [address] Performed By: #### 2 692-2 ####[facility] LABCLIA [id number] [place] [id number] [place] Osmolality Uron 12-02-2024 Osmolality (U) [Osmolality] 488 mosm/kg Normal 50-1200 [facility] Comment on above: Order Comment: Speci men Type: URINE SPECIMENOrdering Facility: [facility] Address: [address] [place] [address] Performed By: #### 2 695-5 ####[facility] LABCLIA [id number] [place] [address] [place] PROTEINASE 3 ANTIBODYon 11-14 Proteinase 3 Ab Qn (S) <0.2 Normal <1.0 [facility] Comment on above: Order Comment: Speci men Type: BLOOD SPECIMENOrdering Facility: [facility] Address: [address] [place] [address] Performed By: #### 1 989-3, 32547-6, 24749-9, [facility], 6969-0 ####[facility] LABCLIA [id number] [place] [address] [place] Phosphate SerPl-mCncon 12-02 Phosphate [Mass/Vol] 3.0 mg/dL Normal 2.7-4.[address] [facility] Comment on above: Order Comment: Speci men Type: BLOOD SPECIMENOrdering Facility: [facility] Address: [address] [place] [address] Performed By: #### 2 777-1 ####[facility] LABORATORYCLIA [id number] [place] [address] [place] Smooth muscle Ab Ql (S)on ACTIN SMOOTH MUSCLE IGG QUALITATIVE Negative Normal Negative [facility] Comment on above: Order Comment: Speci men Type: BLOOD SPECIMENOrdering Facility: [facility] Address: [address] [place] [address] Performed By: #### 1 989-3, 46031-4, 68608-9, ANCA, 6969-0 ####[facility] LABCLIA [id number] [place] [address] [place] ACTIN SMOOTH MUSCLE IGG QUANTITATIVE 3 Units Normal <20 [facility] Comment on above: Order Comment: Speci men Type: BLOOD SPECIMENOrdering Facility: [facility] Address: [address] [place] [address] Performed By: #### 1 989-3, 96853-3, 92261-4, [facility], 6969-0 ####[facility] LABCLIA [id number] [address] [place] [address] [place] Sodium SerPl-sCncon 12-02-19 25 Sodium [Moles/Vol] 127 mmol/L Low 136-144 [facility] Comment on above: Order Comment: Speci men Type: BLOOD SPECIMENOrdering Facility: [facility] Address: [address] [place] [address] Performed By: #### 2 951-2 ####VILLARRE[facility] LABORATORYCLIA [id number] [place] [address] [place] Sodium [Moles/Vol] 130 mmol/L Low 136-144 [facility] Comment on above: Order Comment: Speci men Type: BLOOD SPECIMENOrdering Facility: [facility] Address: [address] [place] [address] Performed By: #### 2 951-2, 2156-6, 3084-1 ####V[facility] LABORATORYCLIA [id number] [place] [address] [place] US ABD RIGHT UPPER QUADRANTo n 12-02-2024 US ABD RIGHT UPPER QUADRANT Normal [facility] US ABD SPLEEN -NBon 12-02-19 25 US ABD SPLEEN -NB Normal [facility] US EXT MASS/FLUID COLLECTION LTon 12-02-2024 US EXT MASS/FLUID COLLECTION LT Normal [facility] Urate SerPl-mCncon 5 Urate [Mass/Vol] 4.9 mg/dL Normal 2.5-6.6 [facility] Comment on above: Order Comment: Speci men Type: BLOOD SPECIMENOrdering Facility: [facility] Address: [address] [place] [address] Performed By: #### 2 951-2, 7-6, 3084-1 ####V[facility] LABORATORYCLIA [id number] [place] [address] [place] Urate [Mass/Vol] 5.1 mg/dL Normal 2.5-6.6 [facility] Comment on above: Order Comment: Speci men Type: BLOOD SPECIMENOrdering Facility: [facility] Address: [address] [place] [address] Performed By: #### 3 084-1, 25814-2, 51890-9, 1987- ####VILL[facility]RE[facility] LABORATORYCLIA [id number] [place] [address] [place] ALLIED HEALTHon 12-01-2024 ALLIED HEALTH Normal [facility] Bacteria Ur Culton Bacteria identified Cx Nom (U) CULTURE, URINE: Mixed microbiota: ORGANISM ID: 1 <10,000 CFU/ml Lactose negative gram negative bacilli Insignificant colony count. No further workup. Normal [facility] Comment on above: Performed By: #### 6 30-4 ####[facility] LABCLIA [id number] [address] [place] [address] [place] Basic metabolic 2000 panelon 12-01-2024 Anion gap [Moles/Vol] 12 mmol/L Normal 8-15 [facility] Comment on above: Order Comment: Speci men Type: BLOOD SPECIMENOrdering Facility: [facility] Address: [address] [place] [address] Performed By: #### 2 4321-2 ####[facility] LABORATORYCLIA [id number] [place] [id number] [place] Calcium [Mass/Vol] 8.7 mg/dL Normal 8.5-10.2 [facility] Comment on above: Order Comment: Speci men Type: BLOOD SPECIMENOrdering Facility: [facility] Address: [address] [place] [address] Performed By: #### 2 4321-2 ####VILLARRE[facility] LABORATORYCLIA [id number] [place] [id number] [place] Chloride [Moles/Vol] 91 mmol/L Low 98-[address] [facility] Comment on above: Order Comment: Speci men Type: BLOOD SPECIMENOrdering Facility: [facility] Address: [address] [place] [address] Performed By: #### 2 4321-2 ####VILLARREAL LABORATORYCLIA [id number] [place] [id number] [place] [facility] CO2 [Moles/Vol] 25 mmol/L Normal 22-30 [facility] Comment on above: Order Comment: Fan meade Type: BLOOD SPECIMENOrdering Facility: [facility] Address: [address] [place] [address] Performed By: #### 2 4321-2 ####VILLARREAL LABORATORYCLIA [id number] [address] Creatinine [Mass/Vol] 1.03 mg/dL High 0.58-0.96 [facility] Comment on above: Order Comment: Fan meade Type: BLOOD SPECIMENOrdering Facility: [facility] Address: [address] [place] [address] Performed By: #### 2 4321-2 ####VILLARREAL LABORATORYCLIA [id number] [address] Creatinine and Glomerular filtration rate.predicted panel (S/P/Bld) 52 mL/min/1.73m??? Low >=60 [facility] Comment on above: Order Comment: Fan meade Type: BLOOD SPECIMENOrdering Facility: [facility] Address: [address] [place] [address] Result Comment: Hilda mated Glomerular Filtration Rate (eGFR) is calculated using the 2020 CKD-EPI creatinine equation. This equation utilizes serum creatinine, sex, and age as parameters. The creatinine assay has traceable calibration to isotope dilution-mass spectrometry. Refer to KDIGO guidelines for clinical interpretation. In patients with unstable renal function, e.g. those with acute kidney injury, the eGFR may not accurately reflect actual GFR. Performed By: #### 2 4321-2 ####VILLARREAL LABORATORYCLIA [id number] [place] [id number] [place] OF [facility] Glucose [Mass/Vol] 200 mg/dL High 74-99 [facility] Comment on above: Order Comment: Fan meade Type: BLOOD SPECIMENOrdering Facility: [facility] Address: [address] [place] [address] Result Comment: The [place] Diabetes Association (ADA) provides guidance for cutoff values for fasting glucose and random glucose. The ADA defines fasting as no caloric intake for at least 8 hours. Fasting plasma glucose results between 100 to 125 mg/dL indicate increased risk for diabetes (prediabetes).Fasting plasma glucose results greater than or equal to 126 mg/dL meet the criteria for diagnosis of diabetes. In the absence of unequivocal hyperglycemia, results should be confirmed by repeat testing. In a patient with classic symptoms of hyperglycemia or hyperglycemic crisis, random plasma glucose results greater than or equal to 200 mg/dL meet the criteria for diagnosis of diabetes.Reference: Standards of Medical Care in Diabetes 2016, [place] Diabetes Association. Diabetes Care. 2016.39(Suppl 1). Performed By: #### 2 4321-2 ####VILLARREAL LABORATORYCLIA [id number] [place] [address] [place] Potassium [Moles/Vol] 4.7 mmol/L Normal 3.7-5.1 [facility] Comment on above: Order Comment: Fan meade Type: BLOOD SPECIMENOrdering Facility: [facility] Address: [address] [place] [address] Performed By: #### 2 4321-2 ####VILLARREAL LABORATORYCLIA [id number] [place] [address] [place] Sodium [Moles/Vol] 128 mmol/L Low 136-144 [facility] Comment on above: Order Comment: Fan meade Type: BLOOD SPECIMENOrdering Facility: [facility] Address: [address] [place] [address] Performed By: #### 2 4321-2 ####VILLARREAL LABORATORYCLIA [id number] [place] [address] [place] Urea nitrogen [Mass/Vol] 36 mg/dL High 7-21 [facility] Comment on above: Order Comment: Fan meade Type: BLOOD SPECIMENOrdering Facility: [facility] Address: [address] [place] [address] Performed By: #### 2 4321-2 ####VILLARREAL LABORATORYCLIA [id number] [place] [address] [place] Anion gap [Moles/Vol] 12 mmol/L Normal 8-15 [facility] Comment on above: Order Comment: Speci men Type: BLOOD SPECIMENOrdering Facility: [facility] Address: [address] [place] [address] Performed By: #### 1 9123-9, 27951-7, 58673-5, 06595-9, 48764-0 ####VILLARREAL LABORATORYCLIA [id number] [place] [address] [place] Calcium [Mass/Vol] 9.4 mg/dL Normal 8.5-10.2 [facility] Comment on above: Order Comment: Speci men Type: BLOOD SPECIMENOrdering Facility: [facility] Address: [address] [place] [address] Performed By: #### 1 9123-9, 94263-1, 42637-7, 46645-7, 34344-9 ####[facility] LABORATORYCLIA [id number] [place] [address] [place] Chloride [Moles/Vol] 92 mmol/L Low 98-[address] [facility] Comment on above: Order Comment: Speci men Type: BLOOD SPECIMENOrdering Facility: [facility] Address: [address] [place] [address] Performed By: #### 1 9123-9, 71959-8, 17748-2, 31957-8, 69743-8 ####[facility] LABORATORYCLIA [id number] [place] [address] [place] CO2 [Moles/Vol] 25 mmol/L Normal 22-30 [facility] Comment on above: Order Comment: Speci men Type: BLOOD SPECIMENOrdering Facility: [facility] Address: [address] [place] [address] Performed By: #### 1 9123-9, 22765-3, 22575-9, 80902-6, 73823-6 ####[facility] LABORATORYCLIA [id number] [place] [address] [place] Creatinine [Mass/Vol] 0.95 mg/dL Normal 0.58-0.96 [facility] Comment on above: Order Comment: Speci men Type: BLOOD SPECIMENOrdering Facility: [facility] Address: [address] [place] [address] Performed By: #### 1 9123-9, 80834-5, 09325-1, 71342-3, 32350-8 ####[facility] LABORATORYCLIA [id number] [place] [address] [place] Creatinine and Glomerular filtration rate.predicted panel (S/P/Bld) 58 mL/min/1.73m??? Low >=60 [facility] Comment on above: Order Comment: [place] Type: BLOOD SPECIMENOrdering Facility: [facility] Address: [address] [place] [address] Result Comment: Hilda mated Glomerular Filtration Rate (eGFR) is calculated using the 2020 CKD-EPI creatinine equation. This equation utilizes serum creatinine, sex, and age as parameters. The creatinine assay has traceable calibration to isotope dilution-mass spectrometry. Refer to KDIGO guidelines for clinical interpretation. In patients with unstable renal function, e.g. those with acute kidney injury, the eGFR may not accurately reflect actual GFR. Performed By: #### 1 9123-9, 00604-2, 79118-2, 45177-4, 74644-9 ####[facility] LABORATORYCLIA [id number] [place] [id number] [place] Glucose [Mass/Vol] 230 mg/dL High 74-99 [facility] Comment on above: Order Comment: [place] Type: BLOOD SPECIMENOrdering Facility: [facility] Address: [address] [place] [address] Result Comment: The [place] Diabetes Association (ADA) provides guidance for cutoff values for fasting glucose and random glucose. The ADA defines fasting as no caloric intake for at least 8 hours. Fasting plasma glucose results between 100 to 125 mg/dL indicate increased risk for diabetes (prediabetes).Fasting plasma glucose results greater than or equal to 126 mg/dL meet the criteria for diagnosis of diabetes. In the absence of unequivocal hyperglycemia, results should be confirmed by repeat testing. In a patient with classic symptoms of hyperglycemia or hyperglycemic crisis, random plasma glucose results greater than or equal to 200 mg/dL meet the criteria for diagnosis of diabetes.Reference: Standards of Medical Care in Diabetes 2016, [place] Diabetes Association. Diabetes Care. 2016.39(Suppl 1). Performed By: #### 1 9123-9, 91552-3, 16121-9, 80284-2, 42552-2 ####[facility] LABORATORYCLIA [id number] [place] [address] [place] Potassium [Moles/Vol] 4.7 mmol/L Normal 3.7-5.1 [facility] Comment on above: Order Comment: Speci men Type: BLOOD SPECIMENOrdering Facility: [facility] Address: [address] [place] [address] Performed By: #### 1 9123-9, 42729-0, 03661-1, 93986-9, 38976-9 ####[facility] LABORATORYCLIA [id number] [place] [address] [place] Sodium [Moles/Vol] 129 mmol/L Low 136-144 [facility] Comment on above: Order Comment: Speci men Type: BLOOD SPECIMENOrdering Facility: [facility] Address: [address] [place] [address] Performed By: #### 1 9123-9, 46484-9, 72187-3, 32654-6, 84935-9 ####[facility] LABORATORYCLIA [id number] [place] [address] [place] Urea nitrogen [Mass/Vol] 36 mg/dL High 7-21 [facility] Comment on above: Order Comment: Speci men Type: BLOOD SPECIMENOrdering Facility: [facility] Address: [address] [place] [address] Performed By: #### 1 9123-9, 18401-1, 65346-9, 66500-3, 86933-8 ####[facility] LABORATORYCLIA [id number] [place] [address] [place] CBC W Auto Differential pane l (Bld)on 12-01-2024 Basophils (Bld) [#/Vol] 0.06 10*3/uL Normal <0.11 [facility] Comment on above: Order Comment: Speci men Type: BLOOD SPECIMENOrdering Facility: [facility] Address: [address] [place] [address] Performed By: #### 5 7021-8 ####VILLARREAL LABORATORYCLIA [id number] [place] [address] [place] Basophils/100 WBC (Bld) 0.3 % Normal [facility] Comment on above: Order Comment: Speci men Type: BLOOD SPECIMENOrdering Facility: [facility] Address: [address] [place] [address] Performed By: #### 5 7021-8 ####VILLARREAL LABORATORYCLIA [id number] [address] Differential cell count method Nom (Bld) Auto Normal [facility] Comment on above: Order Comment: Speci men Type: BLOOD SPECIMENOrdering Facility: [facility] Address: [address] [place] [address] Performed By: #### 5 7021-8 ####VILLARREAL LABORATORYCLIA [id number] [place] [address] [place] Eosinophils (Bld) [#/Vol] 0.20 10*3/uL Normal <0.46 [facility] Comment on above: Order Comment: Speci men Type: BLOOD SPECIMENOrdering Facility: [facility] Address: [address] [place] [address] Performed By: #### 5 7021-8 ####VILLARREAL LABORATORYCLIA [id number] [address] Eosinophils/100 WBC (Bld) 0.9 % Normal [facility] Comment on above: Order Comment: Speci men Type: BLOOD SPECIMENOrdering Facility: [facility] Address: [address] [place] [address] Performed By: #### 5 7021-8 ####VILLARREAL LABORATORYCLIA [id number] [address] [place] Erythrocyte distribution width (RBC) [Ratio] 15.9 % High 11.5-15.0 [facility] Comment on above: Order Comment: Speci men Type: BLOOD SPECIMENOrdering Facility: [facility] Address: [address] [place] [address] Performed By: #### 5 7021-8 ####VILLARREAL LABORATORYCLIA [id number] [address] [place] Hematocrit (Bld) [Volume fraction] 26.6 % Low 36.0-46.0 [facility] Comment on above: Order Comment: Speci men Type: BLOOD SPECIMENOrdering Facility: [facility] Address: [address] [place] [address] Performed By: #### 5 7021-8 ####VILLARREAL LABORATORYCLIA [id number] [place] [address] [place] Hemoglobin (Bld) [Mass/Vol] 8.8 g/dL Low 11.5-15.5 [facility] Comment on above: Order Comment: Speci men Type: BLOOD SPECIMENOrdering Facility: [facility] Address: [address] [place] [address] Performed By: #### 5 7021-8 ####VILLARREAL LABORATORYCLIA [id number] [place] [address] [place] Immature granulocytes (Bld) [#/Vol] 0.32 10*3/uL High <0.10 [facility] Comment on above: Order Comment: Speci men Type: BLOOD SPECIMENOrdering Facility: [facility] Address: [address] [place] [address] Performed By: #### 5 7021-8 ####VILLARREAL LABORATORYCLIA [id number] [address] [place] Immature granulocytes/100 WBC (Bld) 1.4 % Normal [facility] Comment on above: Order Comment: Speci men Type: BLOOD SPECIMENOrdering Facility: [facility] Address: [address] [place] [address] Performed By: #### 5 7021-8 ####VILLARREAL LABORATORYCLIA [id number] [place] [address] [place] Lymphocytes (Bld) [#/Vol] 1.00 10*3/uL Normal 1.00-4.00 [facility] Comment on above: Order Comment: Speci men Type: BLOOD SPECIMENOrdering Facility: [facility] Address: [address] [place] [address] Performed By: #### 5 7021-8 ####VILLARREAL LABORATORYCLIA [id number] [address] [place] Lymphocytes/100 WBC (Bld) 4.5 % Normal [facility] Comment on above: Order Comment: Speci men Type: BLOOD SPECIMENOrdering Facility: [facility] Address: [address] [place] [address] Performed By: #### 5 7021-8 ####VILLARREAL LABORATORYCLIA [id number] [address] MCH (RBC) [Entitic mass] 28.3 pg Normal 26.0-34.0 [facility] Comment on above: Order Comment: Speci men Type: BLOOD SPECIMENOrdering Facility: [facility] Address: [address] [place] [address] Performed By: #### 5 7021-8 ####VILLARREAL LABORATORYCLIA [id number] [address] [place] MCHC (RBC) [Mass/Vol] 33.1 g/dL Normal 30.5-36.0 [facility] Comment on above: Order Comment: Speci men Type: BLOOD SPECIMENOrdering Facility: [facility] Address: [address] [place] [address] Performed By: #### 5 7021-8 ####VILLARREAL LABORATORYCLIA [id number] [address] MCV (RBC) [Entitic vol] 85.5 fL Normal 80.0-100.0 [facility] Comment on above: Order Comment: Speci men Type: BLOOD SPECIMENOrdering Facility: [facility] Address: [address] [place] [address] Performed By: #### 5 7021-8 ####VILLARREAL LABORATORYCLIA [id number] [address] Monocytes (Bld) [#/Vol] 1.18 10*3/uL High <0.87 [facility] Comment on above: Order Comment: Speci men Type: BLOOD SPECIMENOrdering Facility: [facility] Address: [address] [place] [address] Performed By: #### 5 7021-8 ####VILLARREAL LABORATORYCLIA [id number] [place] [address] [place] Monocytes/100 WBC (Bld) 5.3 % Normal [facility] Comment on above: Order Comment: Speci men Type: BLOOD SPECIMENOrdering Facility: [facility] Address: [address] [place] [address] Performed By: #### 5 7021-8 ####VILLARREAL LABORATORYCLIA [id number] [place] [address] [place] Neutrophils (Bld) [#/Vol] 19.49 10*3/uL High 1.45-7.50 [facility] Comment on above: Order Comment: Speci men Type: BLOOD SPECIMENOrdering Facility: [facility] Address: [address] [place] [address] Performed By: #### 5 7021-8 ####VILLARREAL LABORATORYCLIA [id number] [place] [address] [place] Neutrophils/100 WBC (Bld) 87.6 % Normal [facility] Comment on above: Order Comment: Speci men Type: BLOOD SPECIMENOrdering Facility: [facility] Address: [address] [place] [address] Performed By: #### 5 7021-8 ####VILLARREAL LABORATORYCLIA [id number] [place] [address] [place] Nucleated RBC (Bld) [#/Vol] 10*3/uL Normal <0.01 [facility] Comment on above: Order Comment: Speci men Type: BLOOD SPECIMENOrdering Facility: [facility] Address: [address] [place] [address] Performed By: #### 5 7021-8 ####VILLARREAL LABORATORYCLIA [id number] [place] [address] [place] Nucleated RBC/100 WBC (Bld) [Ratio] 0.0 /100 WBC Normal [facility] Comment on above: Order Comment: Speci men Type: BLOOD SPECIMENOrdering Facility: [facility] Address: [address] [place] [address] Performed By: #### 5 7021-8 ####[facility] LABORATORYCLIA [id number] [place] [address] [place] Platelet mean volume (Bld) [Entitic vol] 8.7 fL Low 9.0-12.7 [facility] Comment on above: Order Comment: Speci men Type: BLOOD SPECIMENOrdering Facility: [facility] Address: [address] [place] [address] Performed By: #### 5 7021-8 ####[facility] LABORATORYCLIA [id number] [place] [address] [place] Platelets (Bld) [#/Vol] 435 10*3/uL High 150-400 [facility] Comment on above: Order Comment: Speci men Type: BLOOD SPECIMENOrdering Facility: [facility] Address: [address] [place] [address] Performed By: #### 5 7021-8 ####[facility] LABORATORYCLIA [id number] [place] [address] [place] RBC (Bld) [#/Vol] 3.11 10*6/uL Low 3.90-5.20 [facility] Comment on above: Order Comment: Speci men Type: BLOOD SPECIMENOrdering Facility: [facility] Address: [address] [place] [address] Performed By: #### 5 7021-8 ####[facility] LABORATORYCLIA [id number] [place] [address] [place] WBC (Bld) [#/Vol] 22.25 10*3/uL High 3.70-11.[address] [facility] Comment on above: Order Comment: Speci men Type: BLOOD SPECIMENOrdering Facility: [facility] Address: [address] [place] [address] Performed By: #### 5 7021-8 ####[facility] LABORATORYCLIA [id number] [address] [place] CONSULT PROGon 12-01-2024 CONSULT PROG Normal [facility] CONSULT PROG Normal [facility] CT ABD/PEL W IVCONon 025 CT ABD/PEL W IVCON Normal [facility] ECG COMPLETEon 12-01-2024 ECG COMPLETE Normal [facility] Hepatic function 2000 panelo n 12-01-2024 Albumin [Mass/Vol] 2.7 g/dL Low 3.9-4.9 [facility] Comment on above: Order Comment: Speci men Type: BLOOD SPECIMENOrdering Facility: [facility] Address: [address] [place] [address] Performed By: #### 1 9123-9, 82329-6, 10588-3, 70190-7, 75731-5 ####[facility] LABORATORYCLIA [id number] [place] [address] [place] ALP [Catalytic activity/Vol] 79 U/L Normal 34-123 [facility] Comment on above: Order Comment: Speci men Type: BLOOD SPECIMENOrdering Facility: [facility] Address: [address] [place] [address] Performed By: #### 1 9123-9, 76502-5, 27390-1, 60252-1, 55583-1 ####[facility] LABORATORYCLIA [id number] [address] [place] ALT [Catalytic activity/Vol] U/L Low 7-38 [facility] Comment on above: Order Comment: Speci men Type: BLOOD SPECIMENOrdering Facility: [facility] Address: [address] [place] [address] Performed By: #### 1 9123-9, 25812-1, 05242-5, 04884-0, 39210-6 ####[facility] LABORATORYCLIA [id number] [place] [id number] [facility] AST [Catalytic activity/Vol] 20 U/L Normal 13-35 [facility] Comment on above: Order Comment: Speci men Type: BLOOD SPECIMENOrdering Facility: [facility] Address: [address] [place] [address] Performed By: #### 1 9123-9, 11183-4, 02652-9, 09374-5, 90018-6 ####VILLAR[facility] LABORATORYCLIA [id number] [address] Bilirubin [Mass/Vol] 0.2 mg/dL Normal 0.2-1.[address] [facility] Comment on above: Order Comment: Speci men Type: BLOOD SPECIMENOrdering Facility: [facility] Address: [address] [place] [address] Performed By: #### 1 9123-9, 90938-2, 60361-2, 28208-5, 18859-4 ####[facility] LABORATORYCLIA [id number] [address] Bilirubin.conjugated [Mass/Vol] mg/dL Normal <0.3 [facility] Comment on above: Order Comment: Speci men Type: BLOOD SPECIMENOrdering Facility: [facility] Address: [address] [place] [address] Performed By: #### 1 9123-9, 96559-4, 48063-0, 32392-2, 50921-8 ####[facility] LABORATORYCLIA [id number] [address] Protein [Mass/Vol] 5.9 g/dL Low 6.3-8.0 [facility] Comment on above: Order Comment: Speci men Type: BLOOD SPECIMENOrdering Facility: [facility] Address: [address] [place] [address] Performed By: #### 1 9123-9, 97490-3, 84447-7, 91979-2, 61557-9 ####[facility] LABORATORYCLIA [id number] [address] OF [facility] MRI ANKLE WO IVCON LTon 11-14 MRI ANKLE WO IVCON LT Normal [facility] MRI FOOT/TOES WO IVCON LTon 12-01-2024 MRI FOOT/TOES WO IVCON LT Normal [facility] Magnesium SerPl-mCncon 12-01 Magnesium [Mass/Vol] 2.3 mg/dL Normal 1.7-2.[address] [facility] Comment on above: Order Comment: Speci men Type: BLOOD SPECIMENOrdering Facility: [facility] Address: [address] [place] [address] Performed By: #### 1 9123-9, 14663-4, 35018-5, 79541-5, 63540-0 ####[facility] LABORATORYCLIA [id number] [address] NT-proBNP SerPl-mCncon 12-01 Natriuretic peptide.B prohormone N-Terminal [Mass/Vol] 1162 pg/mL High <450 [facility] Comment on above: Order Comment: Speci men Type: BLOOD SPECIMENOrdering Facility: [facility] Address: [address] [place] [address] Performed By: #### 1 9123-9, 53687-5, 45808-3, 27611-1, 68668-8 ####[facility] LABORATORYCLIA [id number] [address] Procalcitonin SerPl-ncon 0 12-01-2024 Procalcitonin [Mass/Vol] 0.24 ng/mL High <0.09 [facility] Comment on above: Order Comment: Speci [facility] Type: BLOOD SPECIMENOrdering Facility: [facility] Address: [address] [place] [address] Result Comment: For a guided interpretation of test results, please visit the Change in Procalcitonin Calculator, [email or web address]. Performed By: #### 1 9123-9, 47675-4, 34835-8, 03421-8, 34324-5 ####[facility] LABORATORYCLIA [id number] [address] SEPSIS LACTATEon 12-01-2024 Lactate [Moles/Vol] 1.5 mmol/L Normal 0.5-2.0 [facility] Comment on above: Order Comment: Speci [facility] Type: BLOOD SPECIMENOrdering Facility: [facility] Address: [address] [place] [address] Performed By: #### S LACT ####VILLARRE[facility] LABORATORYCLIA [id number] [address] Sodium ?Tm Ur-sCncon 025 Sodium Unsp time (U) [Moles/Vol] 39 mmol/L Normal 14-216 [facility] Comment on above: Order Comment: Speci men Type: URINE SPECIMENOrdering Facility: [facility] Address: [address] [place] [address] Performed By: #### 3 5678-2 ####[facility] LABCLIA [id number] [address] [address] [id number] [address] [place] URINALYSIS, REFLEX MICROSCOP ICon 12-01-2024 Bacteria LM.HPF (Urine sed) [#/Area] Few Abnormal None Seen [facility] Comment on above: Order Comment: Speci men Type: URINE SPECIMENOrdering Facility: [facility] Address: [address] [place] [address] Performed By: #### L [id number] ####VILLAR[facility] LABORATORYCLIA [id number] [address] [place] Bilirubin Ql (U) Negative Normal Negative [facility] Comment on above: Order Comment: Speci men Type: URINE SPECIMENOrdering Facility: [facility] Address: [address] [place] [address] Performed By: #### L [id number] ####V[facility] LABORATORYCLIA [id number] [address] [place] Clarity (Unsp spec) Clear Normal Clear [facility] Comment on above: Order Comment: Speci men Type: URINE SPECIMENOrdering Facility: [facility] Address: [address] [place] [address] Performed By: #### L [id number] ####[facility] LABORATORYCLIA [id number] [address] [place] Color (U) Yellow Normal Yellow [facility] Comment on above: Order Comment: Speci men Type: URINE SPECIMENOrdering Facility: [facility] Address: [address] [place] [address] Performed By: #### L [id number] ####[facility] LABORATORYCLIA [id number] [address] [place] Epithelial cells LM.HPF (Urine sed) [#/Area] Few Normal [facility] Comment on above: Order Comment: Speci men Type: URINE SPECIMENOrdering Facility: [facility] Address: [address] [place] [address] Performed By: #### L [id number] ####[facility] LABORATORYCLIA [id number] [address] Glucose Test strip (U) [Mass/Vol] Trace Abnormal Negative [facility] Comment on above: Order Comment: Speci men Type: URINE SPECIMENOrdering Facility: [facility] Address: [address] [place] [address] Performed By: #### L [id number] ####[facility] LABORATORYCLIA [id number] [address] [place] [facility] Hemoglobin Ql (U) Negative Normal Negative [facility] Comment on above: Order Comment: Speci men Type: URINE SPECIMENOrdering Facility: [facility] Address: [address] [place] [address] Performed By: #### L [id number] ####[facility] LABORATORYCLIA [id number] [address] [place] Ketones Ql (U) Trace Abnormal Negative [facility] Comment on above: Order Comment: Speci men Type: URINE SPECIMENOrdering Facility: [facility] Address: [address] [place] [address] Performed By: #### L [id number] ####[facility] LABORATORYCLIA [id number] [address] Leukocyte esterase Test strip Ql (U) Trace Abnormal Negative [facility] Comment on above: Order Comment: Speci men Type: URINE SPECIMENOrdering Facility: [facility] Address: [address] [place] [address] Performed By: #### L [id number] ####[facility] LABORATORYCLIA [id number] [place] [address] [place] Nitrite Ql (U) Negative Normal Negative [facility] Comment on above: Order Comment: Speci men Type: URINE SPECIMENOrdering Facility: [facility] Address: [address] [place] [address] Performed By: #### L [id number] ####[facility] LABORATORYCLIA [id number] [address] pH (U) 5.5 [pH] Normal 5.0-8.0 [facility] Comment on above: Order Comment: Speci men Type: URINE SPECIMENOrdering Facility: [facility] Address: [address] [place] [address] Performed By: #### L [id number] ####[facility] LABORATORYCLIA [id number] [address] [place] Protein (U) [Mass/Vol] 2+ Abnormal Negative [facility] Comment on above: Order Comment: Speci men Type: URINE SPECIMENOrdering Facility: [facility] Address: [address] [place] [address] Performed By: #### L [id number] ####[facility] LABORATORYCLIA [id number] [address] [place] RBC LM.HPF (Urine sed) [#/Area] 0-3 /HPF Normal 0-3 /HPF [facility] Comment on above: Order Comment: Speci men Type: URINE SPECIMENOrdering Facility: [facility] Address: [address] [place] [address] Performed By: #### L [id number] ####VILL[facility] LABORATORYCLIA [id number] [address] Specific gravity (U) [Rel density] 1.025 Normal 1.005-1.030 [facility] Comment on above: Order Comment: Speci men Type: URINE SPECIMENOrdering Facility: [facility] Address: [address] [place] [address] Performed By: #### L [id number] ####[facility]AR[facility] LABORATORYCLIA [id number] [address] Urobilinogen Ql (U) 0.2 EU/dL Normal 0.2-1.0 EU/dL [facility] Comment on above: Order Comment: Speci men Type: URINE SPECIMENOrdering Facility: [facility] Address: [address] [place] [address] Performed By: #### L [id number] ####VILLARREAL LABORATORYCLIA [id number] [address] [place] WBC LM.HPF (Urine sed) [#/Area] 6-10 /HPF Abnormal 0-5 /HPF [facility] Comment on above: Order Comment: Speci men Type: URINE SPECIMENOrdering Facility: [facility] Address: [address] [place] [address] Performed By: #### L [id number] ####[facility] LABORATORYCLIA [id number] [address] [place] Yeast.budding LM.HPF (Urine sed) [#/Area] Few Abnormal None Seen [facility] Comment on above: Order Comment: Speci men Type: URINE SPECIMENOrdering Facility: [facility] Address: [address] [place] [address] Performed By: #### L [id number] ####[facility] LABORATORYCLIA [id number] [place] [address] [place] ALLIED HEALTHon 11-30-2024 ALLIED HEALTH Normal [facility] Bacteria Bld Culton 11-30-19 25 Bacteria identified Cx Nom (Bld) CULTURE, BLOOD: No growth 5 days Normal [facility] Comment on above: Performed By: #### 6 00-7 ####[facility] LABCLIA [id number] [place] [address] [place] Bacteria identified Cx Nom (Bld) CULTURE, BLOOD: No growth 5 days Normal [facility] Comment on above: Performed By: #### 6 00-7 ####[facility] LABCLIA [id number] [place] [address] [place] Basic metabolic 2000 panelon 11-30-2024 Anion gap [Moles/Vol] 12 mmol/L Normal 8-15 [facility] Comment on above: Order Comment: Speci men Type: BLOOD SPECIMENOrdering Facility: [facility] Address: [address] [place] [address] Performed By: #### 2 4321-2, 04647-6 ####[facility] LABORATORYCLIA [id number] [place] [address] [place] Calcium [Mass/Vol] 9.1 mg/dL Normal 8.5-10.2 [facility] Comment on above: Order Comment: Speci men Type: BLOOD SPECIMENOrdering Facility: [facility] Address: [address] [place] [address] Performed By: #### 2 4321-2, ####VILLARRE[facility] LABORATORYCLIA [id number] [place] [address] [place] Chloride [Moles/Vol] 95 mmol/L Low 98-[address] [facility] Comment on above: Order Comment: Speci men Type: BLOOD SPECIMENOrdering Facility: [facility] Address: [address] [place] [address] Performed By: #### 2 4321-2, ####VILLAR[facility] LABORATORYCLIA [id number] [place] [address] [place] CO2 [Moles/Vol] 25 mmol/L Normal 22-30 [facility] Comment on above: Order Comment: Speci men Type: BLOOD SPECIMENOrdering Facility: [facility] Address: [address] [place] [address] Performed By: #### 2 4321-2, ####VILL[facility] LABORATORYCLIA [id number] [place] [address] [place] Creatinine [Mass/Vol] 0.86 mg/dL Normal 0.58-0.96 [facility] Comment on above: Order Comment: Speci men Type: BLOOD SPECIMENOrdering Facility: [facility] Address: [address] [place] [address] Performed By: #### 2 4321-2, ####VILL[facility] LABORATORYCLIA [id number] [place] [address] [facility] [place] Creatinine and Glomerular filtration rate.predicted panel (S/P/Bld) 65 mL/min/1.73m??? Normal >=60 [facility] Comment on above: Order Comment: Speci men Type: BLOOD SPECIMENOrdering Facility: [facility] Address: [address] [place] [address] Result Comment: Hilda mated Glomerular Filtration Rate (eGFR) is calculated using the 2020 CKD-EPI creatinine equation. This equation utilizes serum creatinine, sex, and age as parameters. The creatinine assay has traceable calibration to isotope dilution-mass spectrometry. Refer to KDIGO guidelines for clinical interpretation. In patients with unstable renal function, e.g. those with acute kidney injury, the eGFR may not accurately reflect actual GFR. Performed By: #### 2 43211-15, ####[facility] LABORATORYCLIA [id number] [place] [address] [place] Glucose [Mass/Vol] 237 mg/dL High 74-99 [facility] Comment on above: Order Comment: Fan meade Type: BLOOD SPECIMENOrdering Facility: [facility] Address: [address] [place], [place] [address] Result Comment: The [place] Diabetes Association (ADA) provides guidance for cutoff values for fasting glucose and random glucose. The ADA defines fasting as no caloric intake for at least 8 hours. Fasting plasma glucose results between 100 to 125 mg/dL indicate increased risk for diabetes (prediabetes).Fasting plasma glucose results greater than or equal to 126 mg/dL meet the criteria for diagnosis of diabetes. In the absence of unequivocal hyperglycemia, results should be confirmed by repeat testing. In a patient with classic symptoms of hyperglycemia or hyperglycemic crisis, random plasma glucose results greater than or equal to 200 mg/dL meet the criteria for diagnosis of diabetes.Reference: Standards of Medical Care in Diabetes 2016, [place] Diabetes Association. Diabetes Care. 2016.39(Suppl 1). Performed By: #### 2 4320-12, ####[facility] LABORATORYCLIA [id number] [place] [address] [place] Potassium [Moles/Vol] 4.2 mmol/L Normal 3.7-5.1 [facility] Comment on above: Order Comment: Fan meade Type: BLOOD SPECIMENOrdering Facility: [facility] Address: [address] [place] [address] Performed By: #### 2 43211-15, ####VILLARRE[facility] LABORATORYCLIA [id number] [place] [address] [place] Sodium [Moles/Vol] 132 mmol/L Low 136-144 [facility] Comment on above: Order Comment: Speci men Type: BLOOD SPECIMENOrdering Facility: [facility] Address: [address] [place] [address] Performed By: #### 2 4321-2, ####VILLARRE[facility] LABORATORYCLIA [id number] [address] [place] [facility] Urea nitrogen [Mass/Vol] 26 mg/dL High 7-21 [facility] Comment on above: Order Comment: Speci men Type: BLOOD SPECIMENOrdering Facility: [facility] Address: [address] [place] [address] Performed By: #### 2 4321-2, ####VILL[facility] LABORATORYCLIA [id number] [address] OF [facility] CASE MANAGEMon 11-30-2024 CASE MANAGEM [facility] CASE MANAGEM [facility] CBC W Auto Differential pane l (Bld)on 11-30-2024 Basophils (Bld) [#/Vol] 0.05 10*3/uL Normal <0.11 [facility] Comment on above: Order Comment: Speci men Type: BLOOD SPECIMENOrdering Facility: [facility] Address: [address] [place] [address] Performed By: #### 5 7021-8 ####V[facility] LABORATORYCLIA [id number] [address] [place] Basophils/100 WBC (Bld) 0.3 % Normal [facility] Comment on above: Order Comment: Speci men Type: BLOOD SPECIMENOrdering Facility: [facility] Address: [address] [place] [address] Performed By: #### 5 7021-8 ####[facility] LABORATORYCLIA [id number] [address] [place] [facility] Differential cell count method Nom (Bld) Auto Normal [facility] Comment on above: Order Comment: Speci men Type: BLOOD SPECIMENOrdering Facility: [facility] Address: [address] [place] [address] Performed By: #### 5 7021-8 ####V[facility] LABORATORYCLIA [id number] [address] [place] Eosinophils (Bld) [#/Vol] 0.27 10*3/uL Normal <0.46 [facility] Comment on above: Order Comment: Speci men Type: BLOOD SPECIMENOrdering Facility: [facility] Address: [address] [place] [address] Performed By: #### 5 7021-8 ####VILL[facility] LABORATORYCLIA [id number] [address] [place] Eosinophils/100 WBC (Bld) 1.8 % Normal [facility] Comment on above: Order Comment: Speci men Type: BLOOD SPECIMENOrdering Facility: [facility] Address: [address] [place] [address] Performed By: #### 5 7021-8 ####[facility] LABORATORYCLIA [id number] [address] [place] Erythrocyte distribution width (RBC) [Ratio] 15.6 % High 11.5-15.0 [facility] Comment on above: Order Comment: Speci men Type: BLOOD SPECIMENOrdering Facility: [facility] Address: [address] [place] [address] Performed By: #### 5 7021-8 ####V[facility] LABORATORYCLIA [id number] [address] [place] Hematocrit (Bld) [Volume fraction] 29.9 % Low 36.0-46.0 [facility] Comment on above: Order Comment: Speci men Type: BLOOD SPECIMENOrdering Facility: [facility] Address: [address] [place] [address] Performed By: #### 5 7021-8 ####[facility] LABORATORYCLIA [id number] [address] [place] Hemoglobin (Bld) [Mass/Vol] 9.9 g/dL Low 11.5-15.5 [facility] Comment on above: Order Comment: Speci men Type: BLOOD SPECIMENOrdering Facility: [facility] Address: [address] [place] [address] Performed By: #### 5 7021-8 ####[facility] LABORATORYCLIA [id number] [address] [place] Immature granulocytes (Bld) [#/Vol] 0.24 10*3/uL High <0.10 [facility] Comment on above: Order Comment: Speci men Type: BLOOD SPECIMENOrdering Facility: [facility] Address: [address] [place] [address] Performed By: #### 5 7021-8 ####V[facility] LABORATORYCLIA [id number] [address] Immature granulocytes/100 WBC (Bld) 1.6 % Normal [facility] Comment on above: Order Comment: Speci men Type: BLOOD SPECIMENOrdering Facility: [facility] Address: [address] [place] [address] Performed By: #### 5 7021-8 ####[facility] LABORATORYCLIA [id number] [address] [place] Lymphocytes (Bld) [#/Vol] 0.92 10*3/uL Low 1.00-4.00 [facility] Comment on above: Order Comment: Speci men Type: BLOOD SPECIMENOrdering Facility: [facility] Address: [address] [place] [address] Performed By: #### 5 7021-8 ####[facility] LABORATORYCLIA [id number] [address] Lymphocytes/100 WBC (Bld) 6.1 % Normal [facility] Comment on above: Order Comment: Speci men Type: BLOOD SPECIMENOrdering Facility: [facility] Address: [address] [place] [address] Performed By: #### 5 7021-8 ####V[facility] LABORATORYCLIA [id number] [place] [address] [place] MCH (RBC) [Entitic mass] 28.3 pg Normal 26.0-34.0 [facility] Comment on above: Order Comment: Speci men Type: BLOOD SPECIMENOrdering Facility: [facility] Address: [address] [place] [address] Performed By: #### 5 7021-8 ####V[facility] LABORATORYCLIA [id number] [place] [address] [place] MCHC (RBC) [Mass/Vol] 33.1 g/dL Normal 30.5-36.0 [facility] Comment on above: Order Comment: Speci men Type: BLOOD SPECIMENOrdering Facility: [facility] Address: [address] [place] [address] Performed By: #### 5 7021-8 ####V[facility] LABORATORYCLIA [id number] [place] [address] [place] MCV (RBC) [Entitic vol] 85.4 fL Normal 80.0-100.0 [facility] Comment on above: Order Comment: Speci men Type: BLOOD SPECIMENOrdering Facility: [facility] Address: [address] [place] [address] Performed By: #### 5 7021-8 ####[facility] LABORATORYCLIA [id number] [place] [address] [place] Monocytes (Bld) [#/Vol] 0.99 10*3/uL High <0.87 [facility] Comment on above: Order Comment: Speci men Type: BLOOD SPECIMENOrdering Facility: [facility] Address: [address] [place] [address] Performed By: #### 5 7021-8 ####[facility] LABORATORYCLIA [id number] [address] Monocytes/100 WBC (Bld) 6.6 % Normal [facility] Comment on above: Order Comment: Speci men Type: BLOOD SPECIMENOrdering Facility: [facility] Address: [address] [place] [address] Performed By: #### 5 7021-8 ####V[facility] LABORATORYCLIA [id number] [place] [address] [place] Neutrophils (Bld) [#/Vol] 12.52 10*3/uL High 1.45-7.50 [facility] Comment on above: Order Comment: Speci men Type: BLOOD SPECIMENOrdering Facility: [facility] Address: [address] [place] [address] Performed By: #### 5 7021-8 ####V[facility] LABORATORYCLIA [id number] [address] Neutrophils/100 WBC (Bld) 83.6 % Normal [facility] Comment on above: Order Comment: Speci men Type: BLOOD SPECIMENOrdering Facility: [facility] Address: [address] [place] [address] Performed By: #### 5 7021-8 ####V[facility] LABORATORYCLIA [id number] [place] [address] [place] Nucleated RBC (Bld) [#/Vol] 10*3/uL Normal <0.01 [facility] Comment on above: Order Comment: Speci men Type: BLOOD SPECIMENOrdering Facility: [facility] Address: [address] [place] [address] Performed By: #### 5 7021-8 ####V[facility] LABORATORYCLIA [id number] [address] [place] [facility] Nucleated RBC/100 WBC (Bld) [Ratio] 0.0 /100 WBC Normal [facility] Comment on above: Order Comment: Speci men Type: BLOOD SPECIMENOrdering Facility: [facility] Address: [facility] [place] [address] Performed By: #### 5 7021-8 ####V[facility] LABORATORYCLIA [id number] [address] [place] Platelet mean volume (Bld) [Entitic vol] 8.6 fL Low 9.0-12.7 [facility] Comment on above: Order Comment: Speci men Type: BLOOD SPECIMENOrdering Facility: [facility] Address: [address] [place] [address] Performed By: #### 5 7021-8 ####V[facility] LABORATORYCLIA [id number] [address] [place] Platelets (Bld) [#/Vol] 436 10*3/uL High 150-400 [facility] Comment on above: Order Comment: Speci men Type: BLOOD SPECIMENOrdering Facility: [facility] Address: [address] [place] [address] Performed By: #### 5 7021-8 ####[facility] LABORATORYCLIA [id number] [place] [address] [place] RBC (Bld) [#/Vol] 3.50 10*6/uL Low 3.90-5.20 [facility] Comment on above: Order Comment: Speci men Type: BLOOD SPECIMENOrdering Facility: [facility] Address: [address] [place] [address] Performed By: #### 5 7021-8 ####[facility] LABORATORYCLIA [id number] [place] [address] [place] WBC (Bld) [#/Vol] 14.99 10*3/uL High 3.70-11.[address] [facility] Comment on above: Order Comment: Speci men Type: BLOOD SPECIMENOrdering Facility: [facility] Address: [address] [place] [address] Performed By: #### 5 7021-8 ####[facility] LABORATORYCLIA [id number] [address] CONSULT [facility]on [facility]-30-[facility] Magnesium SerPl-mCncon 11-30 Magnesium [Mass/Vol] 1.6 mg/dL Low 1.7-2.[address] [facility] Comment on above: Order Comment: Speci men Type: BLOOD SPECIMENOrdering Facility: [facility] Address: [address] [place] [address] Performed By: #### 2 4321-2, 09556-2 ####[facility] LABORATORYCLIA [id number] [address] [place] Urinalysis complete panel (U )on 11-30-2024 Bacteria LM.HPF (Urine sed) [#/Area] Few Abnormal None Seen [facility] Comment on above: Order Comment: Speci men Type: URINE SPECIMENOrdering Facility: [facility] Address: [address] [place] [address] Performed By: #### 2 4356-8 ####V[facility] LABORATORYCLIA [id number] [place] [address] [place] Bilirubin Ql (U) Negative Normal Negative [facility] Comment on above: Order Comment: Speci men Type: URINE SPECIMENOrdering Facility: [facility] Address: [address] [place] [address] Performed By: #### 2 4356-8 ####V[facility] LABORATORYCLIA [id number] [address] [place] Clarity (Unsp spec) Clear Normal Clear [facility] Comment on above: Order Comment: Speci men Type: URINE SPECIMENOrdering Facility: [facility] Address: [address] [place] [address] Performed By: #### 2 4356-8 ####[facility] LABORATORYCLIA [id number] [address] Color (U) Yellow Normal Yellow [facility] Comment on above: Order Comment: Speci men Type: URINE SPECIMENOrdering Facility: [facility] Address: [address] [place] [address] Result Comment: Urin e received in non-preservative tube. Interpret results with caution. To ensure optimal and accurate results, transfer urine to the BD Vacutainer Plus urine preservative tube. Performed By: #### 2 4356-8 ####[facility] LABORATORYCLIA [id number] [address] [place] Epithelial cells LM.HPF (Urine sed) [#/Area] Few Normal [facility] Comment on above: Order Comment: Speci men Type: URINE SPECIMENOrdering Facility: [facility] Address: [address] [place] [address] Performed By: #### 2 4356-8 ####V[facility] LABORATORYCLIA [id number] [place] [id number] [place] Glucose Test strip (U) [Mass/Vol] 1+ Abnormal Negative [facility] Comment on above: Order Comment: Speci men Type: URINE SPECIMENOrdering Facility: [facility] Address: [address] [place] [address] Performed By: #### 2 4356-8 ####[facility] LABORATORYCLIA [id number] [place] [address] [place] Hemoglobin Ql (U) Negative Normal Negative [facility] Comment on above: Order Comment: Speci men Type: URINE SPECIMENOrdering Facility: [facility] Address: [address] [place] [address] Performed By: #### 2 4356-8 ####[facility] LABORATORYCLIA [id number] [place] [address] [place] Ketones Ql (U) Trace Abnormal Negative [facility] Comment on above: Order Comment: Speci men Type: URINE SPECIMENOrdering Facility: [facility] Address: [address] [place] [address] Performed By: #### 2 4356-8 ####[facility] LABORATORYCLIA [id number] [place] [address] [place] Leukocyte esterase Test strip Ql (U) Trace Abnormal Negative [facility] Comment on above: Order Comment: Speci men Type: URINE SPECIMENOrdering Facility: [facility] Address: [address] [place] [address] Performed By: #### 2 4356-8 ####[facility] LABORATORYCLIA [id number] [place] [address] [place] Nitrite Ql (U) Negative Normal Negative [facility] Comment on above: Order Comment: Speci men Type: URINE SPECIMENOrdering Facility: [facility] Address: [address] [place] [address] Performed By: #### 2 4356-8 ####[facility] LABORATORYCLIA [id number] [place] [address] [place] pH (U) 6.5 [pH] Normal 5.0-8.0 [facility] Comment on above: Order Comment: Speci men Type: URINE SPECIMENOrdering Facility: [facility] Address: [address] [place] [address] Performed By: #### 2 4356-8 ####[facility] LABORATORYCLIA [id number] [place] [address] [place] Protein (U) [Mass/Vol] 1+ Abnormal Negative [facility] Comment on above: Order Comment: Speci men Type: URINE SPECIMENOrdering Facility: [facility] Address: [address] [place] [address] Performed By: #### 2 4356-8 ####[facility] LABORATORYCLIA [id number] [address] [place] RBC LM.HPF (Urine sed) [#/Area] 0-3 /HPF Normal 0-3 /HPF [facility] Comment on above: Order Comment: Speci men Type: URINE SPECIMENOrdering Facility: [facility] Address: [address] [place] [address] Performed By: #### 2 4356-8 ####[facility] LABORATORYCLIA [id number] [address] [address] Specific gravity (U) [Rel density] 1.010 Normal 1.005-1.030 [facility] Comment on above: Order Comment: Speci men Type: URINE SPECIMENOrdering Facility: [facility] Address: [address] [place] [address] Performed By: #### 2 4356-8 ####VILL[facility]RE[facility] LABORATORYCLIA [id number] [address] Urobilinogen Ql (U) 0.2 EU/dL Normal 0.2-1.0 EU/dL [facility] Comment on above: Order Comment: Speci men Type: URINE SPECIMENOrdering Facility: [facility] Address: [address] [place] [address] Performed By: #### 2 4356-8 ####VILLARREAL LABORATORYCLIA [id number] [address] [place] WBC LM.HPF (Urine sed) [#/Area] 0-5 /HPF Normal 0-5 /HPF [facility] Comment on above: Order Comment: Speci men Type: URINE SPECIMENOrdering Facility: [facility] Address: [address] [place] [address] Performed By: #### 2 4356-8 ####VILLARREAL LABORATORYCLIA [id number] [address] [place] Yeast.budding LM.HPF (Urine sed) [#/Area] Few Abnormal None Seen [facility] Comment on above: Order Comment: Speci men Type: URINE SPECIMENOrdering Facility: [facility] Address: [address] [place] [address] [place] [address] Performed By: #### 2 4356-8 ####[facility] LABORATORYCLIA [id number] [place] [address] [place] XR CHEST 1V FRONTAL PORTon 0 11-30-2024 XR CHEST 1V FRONTAL PORT Normal [facility] Basic metabolic 2000 panelon 11-29-2024 Anion gap [Moles/Vol] 13 mmol/L Normal 8-15 [facility] Comment on above: Order Comment: Speci men Type: BLOOD SPECIMENOrdering Facility: [facility] Address: [address] [place] [address] Performed By: #### 2 4321-2, ####[facility] LABORATORYCLIA [id number] [place] [address] [place] Calcium [Mass/Vol] 8.8 mg/dL Normal 8.5-10.2 [facility] Comment on above: Order Comment: Speci men Type: BLOOD SPECIMENOrdering Facility: [facility] Address: [address] [place] [address] Performed By: #### 2 4321-2, ####VILLARREAL LABORATORYCLIA [id number] [place] [address] [place] Chloride [Moles/Vol] 95 mmol/L Low 98-[address] [facility] Comment on above: Order Comment: Speci men Type: BLOOD SPECIMENOrdering Facility: [facility] Address: [address] [place] [address] Performed By: #### 2 4321-2, ####VILLARREAL LABORATORYCLIA [id number] [place] [address] [place] CO2 [Moles/Vol] 25 mmol/L Normal 22-30 [facility] Comment on above: Order Comment: Speci men Type: BLOOD SPECIMENOrdering Facility: [facility] Address: [address] [place] [address] Performed By: #### 2 4321-2, ####[facility] LABORATORYCLIA [id number] [place] [address] [place] Creatinine [Mass/Vol] 0.80 mg/dL Normal 0.58-0.96 [facility] Comment on above: Order Comment: Fan meade Type: BLOOD SPECIMENOrdering Facility: [facility] Address: [address] [place] [address] Performed By: #### 2 4321-2, ####[facility] LABORATORYCLIA [id number] [place] [address] [place] Creatinine and Glomerular filtration rate.predicted panel (S/P/Bld) 71 mL/min/1.73m??? Normal >=60 [facility] Comment on above: Order Comment: Kate halina Type: BLOOD SPECIMENOrdering Facility: [facility] Address: [address] [place] [address] Result Comment: Hilda mated Glomerular Filtration Rate (eGFR) is calculated using the 2020 CKD-EPI creatinine equation. This equation utilizes serum creatinine, sex, and age as parameters. The creatinine assay has traceable calibration to isotope dilution-mass spectrometry. Refer to KDIGO guidelines for clinical interpretation. In patients with unstable renal function, e.g. those with acute kidney injury, the eGFR may not accurately reflect actual GFR. Performed By: #### 2 4321-2, ####[facility] LABORATORYCLIA [id number] [place] [address] [place] Glucose [Mass/Vol] 287 mg/dL High 74-99 [facility] Comment on above: Order Comment: Fan meade Type: BLOOD SPECIMENOrdering Facility: [facility] Address: [address] [place] [address] Result Comment: The [place] Diabetes [employer] (ADA) provides guidance for cutoff values for fasting glucose and random glucose. The ADA defines fasting as no caloric intake for at least 8 hours. Fasting plasma glucose results between 100 to 125 mg/dL indicate increased risk for diabetes (prediabetes).Fasting plasma glucose results greater than or equal to 126 mg/dL meet the criteria for diagnosis of diabetes. In the absence of unequivocal hyperglycemia, results should be confirmed by repeat testing. In a patient with classic symptoms of hyperglycemia or hyperglycemic crisis, random plasma glucose results greater than or equal to 200 mg/dL meet the criteria for diagnosis of diabetes.Reference: Standards of Medical Care in Diabetes 2016, [place] [employer]. Diabetes Care. 2016.39(Suppl 1). Performed By: #### 2 4321-2, ####VILLARREAL LABORATORYCLIA [id number] [place] [address] [place] Potassium [Moles/Vol] 4.1 mmol/L Normal 3.7-5.1 [facility] Comment on above: Order Comment: Fan meade Type: BLOOD SPECIMENOrdering Facility: [facility] Address: [address] [place] [address] Performed By: #### 2 432-2, ####VILLARREAL LABORATORYCLIA [id number] [address] [place] [facility] Sodium [Moles/Vol] 133 mmol/L Low 136-144 [facility] Comment on above: Order Comment: Fan meade Type: BLOOD SPECIMENOrdering Facility: [facility] Address: [address] [place] [address] Performed By: #### 2 432-2, ####VILLARREAL LABORATORYCLIA [id number] [address] [place] Urea nitrogen [Mass/Vol] 30 mg/dL High 7-21 [facility] Comment on above: Order Comment: Fan meade Type: BLOOD SPECIMENOrdering Facility: [facility] Address: [address] [place] [address] Performed By: #### 2 2, ####VILLARREAL LABORATORYCLIA [id number] [place] [id number] [place] CASE MANAGEMon 11-29-2024 CASE MANAGEM Normal [facility] CASE MANAGEM Normal [facility] CBC panel Auto (Bld)on 11-29 Erythrocyte distribution width (RBC) [Ratio] 15.2 % High 11.5-15.0 [facility] Comment on above: Order Comment: Fan meade Type: BLOOD SPECIMENOrdering Facility: [facility] Address: [address] [place] [address] Performed By: #### 5 8410-2 ####VILLARREAL LABORATORYCLIA [id number] [address] Hematocrit (Bld) [Volume fraction] 27.9 % Low 36.0-46.0 [facility] Comment on above: Order Comment: Speci men Type: BLOOD SPECIMENOrdering Facility: [facility] Address: [address] [place] [address] Performed By: #### 5 8410-2 ####VILLARREAL LABORATORYCLIA [id number] [address] [place] Hemoglobin (Bld) [Mass/Vol] 9.3 g/dL Low 11.5-15.5 [facility] Comment on above: Order Comment: Speci men Type: BLOOD SPECIMENOrdering Facility: [facility] Address: [address] [place] [address] Performed By: #### 5 8410-2 ####VILLARREAL LABORATORYCLIA [id number] [address] MCH (RBC) [Entitic mass] 28.2 pg Normal 26.0-34.0 [facility] Comment on above: Order Comment: Speci men Type: BLOOD SPECIMENOrdering Facility: [facility] Address: [address] [place] [address] Performed By: #### 5 8410-2 ####VILLARREAL LABORATORYCLIA [id number] [address] MCHC (RBC) [Mass/Vol] 33.3 g/dL Normal 30.5-36.0 [facility] Comment on above: Order Comment: Speci men Type: BLOOD SPECIMENOrdering Facility: [facility] Address: [address] [place] [address] Performed By: #### 5 8410-2 ####VILLARREAL LABORATORYCLIA [id number] [address] MCV (RBC) [Entitic vol] 84.5 fL Normal 80.0-100.0 [facility] Comment on above: Order Comment: Speci men Type: BLOOD SPECIMENOrdering Facility: [facility] Address: [address] [place] [address] Performed By: #### 5 8410-2 ####VILLARREAL LABORATORYCLIA [id number] [place] [address] [place] Nucleated RBC (Bld) [#/Vol] 10*3/uL Normal <0.01 [facility] Comment on above: Order Comment: Speci men Type: BLOOD SPECIMENOrdering Facility: [facility] Address: [address] [place] [address] Performed By: #### 5 8410-2 ####VILLARREAL LABORATORYCLIA [id number] [place] [address] [place] Platelet mean volume (Bld) [Entitic vol] 8.8 fL Low 9.0-12.7 [facility] Comment on above: Order Comment: Speci men Type: BLOOD SPECIMENOrdering Facility: [facility] Address: [address] [place] [address] Performed By: #### 5 8410-2 ####VILLARREAL LABORATORYCLIA [id number] [address] [place] Platelets (Bld) [#/Vol] 425 10*3/uL High 150-400 [facility] Comment on above: Order Comment: Speci men Type: BLOOD SPECIMENOrdering Facility: [facility] Address: [address] [place] [address] Performed By: #### 5 8410-2 ####VILLARREAL LABORATORYCLIA [id number] [place] [address] [place] RBC (Bld) [#/Vol] 3.30 10*6/uL Low 3.90-5.20 [facility] Comment on above: Order Comment: Speci men Type: BLOOD SPECIMENOrdering Facility: [facility] Address: [address] [place] [address] Performed By: #### 5 8410-2 ####VILLARREAL LABORATORYCLIA [id number] [place] [address] [place] WBC (Bld) [#/Vol] 12.17 10*3/uL High 3.70-11.[address] [facility] Comment on above: Order Comment: Speci men Type: BLOOD SPECIMENOrdering Facility: [facility] Address: [address] [place] [address] Performed By: #### 5 8410-2 ####[facility] LABORATORYCLIA [id number] [place], [place] [address] [place] [address] [place] CONSULT PROGon 11-29-2024 CONSULT PROG Normal [facility] CONSULT PROG Normal [facility] Magnesium SerPl-mCncon 11-29 Magnesium [Mass/Vol] 1.4 mg/dL Low 1.7-2.[address] [facility] Comment on above: Order Comment: Speci men Type: BLOOD SPECIMENOrdering Facility: [facility] Address: [address] [place] [address] Performed By: #### 2 4321-2, ####[facility] LABORATORYCLIA [id number] [place] [address] [place] Basic metabolic 2000 panelon 11-28-2024 Anion gap [Moles/Vol] 14 mmol/L Normal 8-15 [facility] Comment on above: Order Comment: Speci men Type: BLOOD SPECIMENOrdering Facility: [facility] Address: [address] [place] [address] Performed By: #### 2 4321-2, , 2776-11 ####[facility] LABORATORYCLIA [id number] [place] [address] [place] Calcium [Mass/Vol] 9.4 mg/dL Normal 8.5-10.2 [facility] Comment on above: Order Comment: Speci men Type: BLOOD SPECIMENOrdering Facility: [facility] Address: [address] [place] [address] Performed By: #### 2 4321-2, , 2776-11 ####VILLARREAL LABORATORYCLIA [id number] [address] [place] Chloride [Moles/Vol] 96 mmol/L Low 98-[address] [facility] Comment on above: Order Comment: Speci men Type: BLOOD SPECIMENOrdering Facility: [facility] Address: [address] [place], [place] [address] [id number] Performed By: #### 2 4321-2, , 2776-11 ####VILLARREAL LABORATORYCLIA [id number] [place] [address] [place] CO2 [Moles/Vol] 25 mmol/L Normal 22-30 [facility] Comment on above: Order Comment: Speci men Type: BLOOD SPECIMENOrdering Facility: [facility] Address: [address] [place] [address] Performed By: #### 2 4321-2, , 2776-11 ####VILLARREAL LABORATORYCLIA [id number] [address] [place] Creatinine [Mass/Vol] 0.80 mg/dL Normal 0.58-0.96 [facility] Comment on above: Order Comment: Speci men Type: BLOOD SPECIMENOrdering Facility: [facility] Address: [address] [place] [address] Performed By: #### 2 432-2, , 2776-11 ####VILLARREAL LABORATORYCLIA [id number] [address] Creatinine and Glomerular filtration rate.predicted panel (S/P/Bld) 71 mL/min/1.73m??? Normal >=60 [facility] Comment on above: Order Comment: Speci men Type: BLOOD SPECIMENOrdering Facility: [facility] Address: [address] [place] [address] Result Comment: Hilda mated Glomerular Filtration Rate (eGFR) is calculated using the 2020 CKD-EPI creatinine equation. This equation utilizes serum creatinine, sex, and age as parameters. The creatinine assay has traceable calibration to isotope dilution-mass spectrometry. Refer to KDIGO guidelines for clinical interpretation. In patients with unstable renal function, e.g. those with acute kidney injury, the eGFR may not accurately reflect actual GFR. Performed By: #### 2 4321-2, , 2776-11 ####VILLARREAL LABORATORYCLIA [id number] [place] [address] [place] Glucose [Mass/Vol] 149 mg/dL High 74-99 [facility] Comment on above: Order Comment: Fan meade Type: BLOOD SPECIMENOrdering Facility: [facility] Address: [address] [place] [address] Result Comment: The [place] Diabetes [employer] (ADA) provides guidance for cutoff values for fasting glucose and random glucose. The ADA defines fasting as no caloric intake for at least 8 hours. Fasting plasma glucose results between 100 to 125 mg/dL indicate increased risk for diabetes (prediabetes).Fasting plasma glucose results greater than or equal to 126 mg/dL meet the criteria for diagnosis of diabetes. In the absence of unequivocal hyperglycemia, results should be confirmed by repeat testing. In a patient with classic symptoms of hyperglycemia or hyperglycemic crisis, random plasma glucose results greater than or equal to 200 mg/dL meet the criteria for diagnosis of diabetes.Reference: Standards of Medical Care in Diabetes 2016, [place] [employer]. Diabetes Care. 2016.39(Suppl 1). Performed By: #### 2 4321-2, , 2776-11 ####VILLARREAL LABORATORYCLIA [id number] [place] [address] [place] Potassium [Moles/Vol] 4.6 mmol/L Normal 3.7-5.1 [facility] Comment on above: Order Comment: Fan meade Type: BLOOD SPECIMENOrdering Facility: [facility] Address: [address] [place] [address] Performed By: #### 2 4321-2, , 2776-11 ####VILLARREAL LABORATORYCLIA [id number] [place] [address] [place] Sodium [Moles/Vol] 135 mmol/L Low 136-144 [facility] Comment on above: Order Comment: Fan meade Type: BLOOD SPECIMENOrdering Facility: [facility] Address: [address] [place] [address] Performed By: #### 2 4321-2, , 2776-11 ####VILLARRE[facility] LABORATORYCLIA [id number] [place] [address] [place] Urea nitrogen [Mass/Vol] 28 mg/dL High 7-21 [facility] Comment on above: Order Comment: Fan men Type: BLOOD SPECIMENOrdering Facility: [facility] Address: [address] [place] [address] Performed By: #### 2 4321-2, 87055-4, 2777-1 ####VILLARREAL LABORATORYCLIA [id number] [place] [address] [place] CASE MANAGEMon 11-28-2024 CASE MANAGEM Normal [facility] CBC W Auto Differential pane l (Bld)on 11-28-2024 Basophils (Bld) [#/Vol] 0.05 10*3/uL Normal <0.11 [facility] Comment on above: Order Comment: Speci men Type: BLOOD SPECIMENOrdering Facility: [facility] Address: [address] [place] [address] Performed By: #### 5 7021-8 ####VILLARREAL LABORATORYCLIA [id number] [address] [place] Basophils/100 WBC (Bld) 0.5 % Normal [facility] Comment on above: Order Comment: Speci men Type: BLOOD SPECIMENOrdering Facility: [facility] Address: [address] [place] [address] Performed By: #### 5 7021-8 ####VILLARREAL LABORATORYCLIA [id number] [address] STATES [facility] Differential cell count method Nom (Bld) Auto Normal [facility] Comment on above: Order Comment: Speci men Type: BLOOD SPECIMENOrdering Facility: [facility] Address: [address] [place] [address] Performed By: #### 5 7021-8 ####VILLARREAL LABORATORYCLIA [id number] [place] [address] [place] Eosinophils (Bld) [#/Vol] 0.43 10*3/uL Normal <0.46 [facility] Comment on above: Order Comment: Speci men Type: BLOOD SPECIMENOrdering Facility: [facility] Address: [address] [place] [address] Performed By: #### 5 7021-8 ####VILLARREAL LABORATORYCLIA [id number] [place] [address] [place] Eosinophils/100 WBC (Bld) 3.9 % Normal [facility] Comment on above: Order Comment: Speci men Type: BLOOD SPECIMENOrdering Facility: [facility] Address: [address] [place] [address] Performed By: #### 5 7021-8 ####VILLARREAL LABORATORYCLIA [id number] [place] [address] [place] Erythrocyte distribution width (RBC) [Ratio] 15.3 % High 11.5-15.0 [facility] Comment on above: Order Comment: Speci men Type: BLOOD SPECIMENOrdering Facility: [facility] Address: [address] [place] [address] Performed By: #### 5 7021-8 ####VILLARREAL LABORATORYCLIA [id number] [place] [address] [place] Hematocrit (Bld) [Volume fraction] 32.2 % Low 36.0-46.0 [facility] Comment on above: Order Comment: Speci men Type: BLOOD SPECIMENOrdering Facility: [facility] Address: [address] [place] [address] Performed By: #### 5 7021-8 ####VILLARREAL LABORATORYCLIA [id number] [place] [address] [place] Hemoglobin (Bld) [Mass/Vol] 10.4 g/dL Low 11.5-15.5 [facility] Comment on above: Order Comment: Speci men Type: BLOOD SPECIMENOrdering Facility: [facility] Address: [address] [place] [address] Performed By: #### 5 7021-8 ####VILLARREAL LABORATORYCLIA [id number] [place] [address] [place] Immature granulocytes (Bld) [#/Vol] 0.17 10*3/uL High <0.10 [facility] Comment on above: Order Comment: Speci men Type: BLOOD SPECIMENOrdering Facility: [facility] Address: [address] [place] [address] Performed By: #### 5 7021-8 ####VILLARREAL LABORATORYCLIA [id number] [address] Immature granulocytes/100 WBC (Bld) 1.6 % Normal [facility] Comment on above: Order Comment: Speci men Type: BLOOD SPECIMENOrdering Facility: [facility] Address: [address] [place] [address] Performed By: #### 5 7021-8 ####VILLARREAL LABORATORYCLIA [id number] [place] [address] [place] Lymphocytes (Bld) [#/Vol] 0.95 10*3/uL Low 1.00-4.00 [facility] Comment on above: Order Comment: Speci men Type: BLOOD SPECIMENOrdering Facility: [facility] Address: [address] [place] [address] Performed By: #### 5 7021-8 ####VILLARREAL LABORATORYCLIA [id number] [address] Lymphocytes/100 WBC (Bld) 8.7 % Normal [facility] Comment on above: Order Comment: Speci men Type: BLOOD SPECIMENOrdering Facility: [facility] Address: [address] [place] [address] Performed By: #### 5 7021-8 ####VILLARREAL LABORATORYCLIA [id number] [place] [address] [place] MCH (RBC) [Entitic mass] 27.7 pg Normal 26.0-34.0 [facility] Comment on above: Order Comment: Speci men Type: BLOOD SPECIMENOrdering Facility: [facility] Address: [address] [place] [address] Performed By: #### 5 7021-8 ####VILLARREAL LABORATORYCLIA [id number] [address] [place] MCHC (RBC) [Mass/Vol] 32.3 g/dL Normal 30.5-36.0 [facility] Comment on above: Order Comment: Speci men Type: BLOOD SPECIMENOrdering Facility: [facility] Address: [address] [place] [address] Performed By: #### 5 7021-8 ####VILLARREAL LABORATORYCLIA [id number] [place] [address] [place] MCV (RBC) [Entitic vol] 85.6 fL Normal 80.0-100.0 [facility] Comment on above: Order Comment: Speci men Type: BLOOD SPECIMENOrdering Facility: [facility] Address: [address] [place] [address] Performed By: #### 5 7021-8 ####VILLARREAL LABORATORYCLIA [id number] [place] [address] [place] Monocytes (Bld) [#/Vol] 0.89 10*3/uL High <0.87 [facility] Comment on above: Order Comment: Speci men Type: BLOOD SPECIMENOrdering Facility: [facility] Address: [address] [place] [address] Performed By: #### 5 7021-8 ####VILLARREAL LABORATORYCLIA [id number] [address] [place] Monocytes/100 WBC (Bld) 8.1 % Normal [facility] Comment on above: Order Comment: Speci men Type: BLOOD SPECIMENOrdering Facility: [facility] Address: [address] [place] [address] Performed By: #### 5 7021-8 ####VILLARREAL LABORATORYCLIA [id number] [place] [address] [place] Neutrophils (Bld) [#/Vol] 8.45 10*3/uL High 1.45-7.50 [facility] Comment on above: Order Comment: Speci men Type: BLOOD SPECIMENOrdering Facility: [facility] Address: [address] [place] [address] Performed By: #### 5 7021-8 ####VILLARREAL LABORATORYCLIA [id number] [place] [address] [place] Neutrophils/100 WBC (Bld) 77.2 % Normal [facility] Comment on above: Order Comment: Speci men Type: BLOOD SPECIMENOrdering Facility: [facility] Address: [address] [place] [address] Performed By: #### 5 7021-8 ####VILLARREAL LABORATORYCLIA [id number] [place] [address] [place] Nucleated RBC (Bld) [#/Vol] 10*3/uL Normal <0.01 [facility] Comment on above: Order Comment: Speci men Type: BLOOD SPECIMENOrdering Facility: [facility] Address: [address] [place] [address] Performed By: #### 5 7021-8 ####VILLARREAL LABORATORYCLIA [id number] [place] [address] [place] Nucleated RBC/100 WBC (Bld) [Ratio] 0.0 /100 WBC Normal [facility] Comment on above: Order Comment: Speci men Type: BLOOD SPECIMENOrdering Facility: [facility] Address: [address] [place] [address] Performed By: #### 5 7021-8 ####VILLARREAL LABORATORYCLIA [id number] [place] [address] [place] Platelet mean volume (Bld) [Entitic vol] 9.0 fL Normal 9.0-12.7 [facility] Comment on above: Order Comment: Speci men Type: BLOOD SPECIMENOrdering Facility: [facility] Address: [address] [place] [address] Performed By: #### 5 7021-8 ####VILLARREAL LABORATORYCLIA [id number] [place] [address] [place] Platelets (Bld) [#/Vol] 413 10*3/uL High 150-400 [facility] Comment on above: Order Comment: Speci men Type: BLOOD SPECIMENOrdering Facility: [facility] Address: [address] [place] [address] Performed By: #### 5 7021-8 ####VILLARREAL LABORATORYCLIA [id number] [place] [address] [place] RBC (Bld) [#/Vol] 3.76 10*6/uL Low 3.90-5.20 [facility] Comment on above: Order Comment: Speci men Type: BLOOD SPECIMENOrdering Facility: [facility] Address: [address] [place] [address] Performed By: #### 5 7021-8 ####VILLARREAL LABORATORYCLIA [id number] [place] [address] [place] WBC (Bld) [#/Vol] 10.94 10*3/uL Normal 3.70-11.[address] [facility] Comment on above: Order Comment: Speci men Type: BLOOD SPECIMENOrdering Facility: [facility] Address: [facility] [place] [id number] Performed By: #### 5 7021-8 ####[facility] LABORATORYCLIA [id number] [place] [id number] [place] CONSULT PROGon 11-28-2024 CONSULT PROG Normal [facility] CONSULT PROG Normal [facility] Magn[facility] SerPl-mCncon 11-28 Magnesium [Mass/Vol] 1.9 mg/dL Normal 1.7-2.[address] [facility] Comment on above: Order Comment: Speci men Type: BLOOD SPECIMENOrdering Facility: [facility] Address: [address] [place], [place] [address] [phone] Performed By: #### 2 4321-2, , 2776-11 ####[facility] LABORATORYCLIA [id number] [place] [id number] [place] Phosphate SerPl-mCncon 11-28 Phosphate [Mass/Vol] 3.4 mg/dL Normal 2.7-4.[address] [facility] Comment on above: Order Comment: Speci men Type: BLOOD SPECIMENOrdering Facility: [facility] Address: [address] [place], [place] [address] [phone] Performed By: #### 2 4321-2, , 27705-14 ####[facility] LABORATORYCLIA [id number] [place] [address] [place] THERAPY NTon 11-28-2024 THERAPY NT [facility] THERAPY NT [facility] ALLIED HEALTHon 11-27-2024 ALLIED HEALTH [facility] ANES POSTPROC EVALon 025 ANES POSTPROC EVAL Normal [facility] ANES PRE-OPon 11-27-2024 ANES PRE-OP [facility] Bacteria Spec Anaerobe Culto n 11-27-2024 Bacteria identified Anaer cx Nom (Unsp spec) Negative Normal [facility] Comment on above: Performed By: #### 6 35-3, 6462-6 ####[facility] LABCLIA [id number] [address] [address] [place] Bacteria Wnd Culton 11-27-19 25 Bacteria identified Cx Nom (Wound) Abnormal [facility] Comment on above: Performed By: #### 6 35-3, 6462-6 ####[facility] LABCLIA [id number] [address] [address] [place] Basic metabolic 2000 panelon 11-27-2024 Anion gap [Moles/Vol] 13 mmol/L Normal 8-15 [facility] Comment on above: Order Comment: Speci men Type: BLOOD SPECIMENOrdering Facility: [facility] Address: [address] [place] [address] Performed By: #### 2 4321-2, , 2776-11 ####[facility] LABORATORYCLIA [id number] [place] [address] [place] Calcium [Mass/Vol] 9.0 mg/dL Normal 8.5-10.2 [facility] Comment on above: Order Comment: Speci men Type: BLOOD SPECIMENOrdering Facility: [facility] Address: [address] [place] [address] Performed By: #### 2 4321-2, , 2776-11 ####[facility] LABORATORYCLIA [id number] [place] [address] [place] Chloride [Moles/Vol] 94 mmol/L Low 98-[address] [facility] Comment on above: Order Comment: Speci men Type: BLOOD SPECIMENOrdering Facility: [facility] Address: [address] [place] [address] Performed By: #### 2 4321-2, , 2776-11 ####[facility] LABORATORYCLIA [id number] [place] [address] [place] CO2 [Moles/Vol] 25 mmol/L Normal 22-30 [facility] Comment on above: Order Comment: Fan meade Type: BLOOD SPECIMENOrdering Facility: [facility] Address: [address] [place] [address] Performed By: #### 2 4321-2, , 2776-11 ####[facility] LABORATORYCLIA [id number] [place] [address] [place] Creatinine [Mass/Vol] 0.76 mg/dL Normal 0.58-0.96 [facility] Comment on above: Order Comment: Fan men Type: BLOOD SPECIMENOrdering Facility: [facility] Address: [address] [place] [address] Performed By: #### 2 4321-2, , 2776-11 ####[facility] LABORATORYCLIA [id number] [place] [id number] [facility] Creatinine and Glomerular filtration rate.predicted panel (S/P/Bld) 75 mL/min/1.73m??? Normal >=60 [facility] Comment on above: Order Comment: Fan meade Type: BLOOD SPECIMENOrdering Facility: [facility] Address: [address] [place] [address] Result Comment: Hilda mated Glomerular Filtration Rate (eGFR) is calculated using the 2020 CKD-EPI creatinine equation. This equation utilizes serum creatinine, sex, and age as parameters. The creatinine assay has traceable calibration to isotope dilution-mass spectrometry. Refer to KDIGO guidelines for clinical interpretation. In patients with unstable renal function, e.g. those with acute kidney injury, the eGFR may not accurately reflect actual GFR. Performed By: #### 2 4321-2, , 2776-11 ####[facility] LABORATORYCLIA [id number] [place] [address] [place] Glucose [Mass/Vol] 251 mg/dL High 74-99 [facility] Comment on above: Order Comment: Fan halina Type: BLOOD SPECIMENOrdering Facility: [facility] Address: [address] [place] [address] Result Comment: The [place] Diabetes Association (ADA) provides guidance for cutoff values for fasting glucose and random glucose. The ADA defines fasting as no caloric intake for at least 8 hours. Fasting plasma glucose results between 100 to 125 mg/dL indicate increased risk for diabetes (prediabetes).Fasting plasma glucose results greater than or equal to 126 mg/dL meet the criteria for diagnosis of diabetes. In the absence of unequivocal hyperglycemia, results should be confirmed by repeat testing. In a patient with classic symptoms of hyperglycemia or hyperglycemic crisis, random plasma glucose results greater than or equal to 200 mg/dL meet the criteria for diagnosis of diabetes.Reference: Standards of Medical Care in Diabetes 2016, [place] [employer] Association. Diabetes Care. 2016.39(Suppl 1). Performed By: #### 2 4321-2, , 2776-11 ####[facility] LABORATORYCLIA [id number] [place] [address] [place] Potassium [Moles/Vol] 3.6 mmol/L Low 3.7-5.1 [facility] Comment on above: Order Comment: Fan meade Type: BLOOD SPECIMENOrdering Facility: [facility] Address: [address] [place] [address] Performed By: #### 2 4321-2, , 2776-11 ####[facility] LABORATORYCLIA [id number] [place] [address] [place] Sodium [Moles/Vol] 132 mmol/L Low 136-144 [facility] Comment on above: Order Comment: Fan meade Type: BLOOD SPECIMENOrdering Facility: [facility] Address: [address] [place] [address] Performed By: #### 2 4321-2, , 2776-11 ####[facility] LABORATORYCLIA [id number] [place] [address] [place] Urea nitrogen [Mass/Vol] 29 mg/dL High 7-21 [facility] Comment on above: Order Comment: Fan meade Type: BLOOD SPECIMENOrdering Facility: [facility] Address: [address] [place] [address] Performed By: #### 2 4321-2, , 2776-11 ####[facility] LABORATORYCLIA [id number] [address] [place] CASE MANAGEMon 11-27-2024 CASE MANAGEM Normal [facility] CBC panel Auto (Bld)on 11-27 Erythrocyte distribution width (RBC) [Ratio] 15.1 % High 11.5-15.0 [facility] Comment on above: Order Comment: Speci men Type: BLOOD SPECIMENOrdering Facility: [facility] Address: [address] [place] [address] Performed By: #### 5 8410-2 ####[facility] LABORATORYCLIA [id number] [address] Hematocrit (Bld) [Volume fraction] 29.3 % Low 36.0-46.0 [facility] Comment on above: Order Comment: Speci men Type: BLOOD SPECIMENOrdering Facility: [facility] Address: [address] [place] [address] Performed By: #### 5 8410-2 ####[facility] LABORATORYCLIA [id number] [address] Hemoglobin (Bld) [Mass/Vol] 9.9 g/dL Low 11.5-15.5 [facility] Comment on above: Order Comment: Speci men Type: BLOOD SPECIMENOrdering Facility: [facility] Address: [address] [place] [address] Performed By: #### 5 8410-2 ####[facility] LABORATORYCLIA [id number] [address] MCH (RBC) [Entitic mass] 28.2 pg Normal 26.0-34.0 [facility] Comment on above: Order Comment: Speci men Type: BLOOD SPECIMENOrdering Facility: [facility] Address: [address] [place] [address] Performed By: #### 5 8410-2 ####[facility] LABORATORYCLIA [id number] [address] MCHC (RBC) [Mass/Vol] 33.8 g/dL Normal 30.5-36.0 [facility] Comment on above: Order Comment: Speci men Type: BLOOD SPECIMENOrdering Facility: [facility] Address: [address] [place], [place] [address] [address] Performed By: #### 5 8410-2 ####[facility] LABORATORYCLIA [id number] [place] [address] [place] MCV (RBC) [Entitic vol] 83.5 fL Normal 80.0-100.0 [facility] Comment on above: Order Comment: Speci men Type: BLOOD SPECIMENOrdering Facility: [facility] Address: [address] [place] [address] Performed By: #### 5 8410-2 ####[facility] LABORATORYCLIA [id number] [place] [address] [place] Nucleated RBC (Bld) [#/Vol] 10*3/uL Normal <0.01 [facility] Comment on above: Order Comment: Speci men Type: BLOOD SPECIMENOrdering Facility: [facility] Address: [address] [place] [address] Performed By: #### 5 8410-2 ####[facility] LABORATORYCLIA [id number] [place] [address] [place] Platelet mean volume (Bld) [Entitic vol] 9.1 fL Normal 9.0-12.7 [facility] Comment on above: Order Comment: Speci men Type: BLOOD SPECIMENOrdering Facility: [facility] Address: [address] [place] [address] Performed By: #### 5 8410-2 ####[facility] LABORATORYCLIA [id number] [place] [address] [place] Platelets (Bld) [#/Vol] 383 10*3/uL Normal 150-400 [facility] Comment on above: Order Comment: Speci men Type: BLOOD SPECIMENOrdering Facility: [facility] Address: [address] [place] [address] [place] [address] Performed By: #### 5 8410-2 ####[facility] LABORATORYCLIA [id number] [place] [address] [place] RBC (Bld) [#/Vol] 3.51 10*6/uL Low 3.90-5.20 [facility] Comment on above: Order Comment: Speci men Type: BLOOD SPECIMENOrdering Facility: [facility] Address: [facility] [place] [phone] Performed By: #### 5 8410-2 ####[facility] LABORATORYCLIA [id number] [address] [place] WBC (Bld) [#/Vol] 11.65 10*3/uL High 3.70-11.[address] [facility] Comment on above: Order Comment: Speci men Type: BLOOD SPECIMENOrdering Facility: [facility] Address: [facility] [place]ragan [place] [phone] Performed By: #### 5 8410-2 ####[facility] LABORATORYCLIA [id number] [address] [place] CONSULT PROGon 11-27-2024 CONSULT PROG [facility] Magnesium [facility]on [facility]-27 Magnesium [Mass/Vol] 1.6 mg/dL Low 1.7-2.[address] [facility] Comment on above: Order Comment: Speci men Type: BLOOD SPECIMENOrdering Facility: [facility] Address: [address] [place], [place] [address] [phone] Performed By: #### 2 4321-2, 14794-9, 2777-1 ####[facility] [facility]ORATORYCLIA [id number] [place] [address] [place] NUTRITIONon 11-27-2024 NUTRITION Normal [facility] OPERATIVE NOon 11-27-2024 OPERATIVE NO Normal [facility] Phosphate SerPl-ncon 11-27 Phosphate [Mass/Vol] 3.7 mg/dL Normal 2.7-4.[address] [facility] Comment on above: Order Comment: Speci men Type: BLOOD SPECIMENOrdering Facility: [facility] Address: [facility] [place] [address] Performed By: #### 2 4321-2, 43651-9, 2777-1 ####[facility] LABORATORYCLIA [id number] [place] [address] [place] THERAPY NTon 11-27-2024 THERAPY NT Normal [facility] US ABD RIGHT UPPER QUADRANTo n 11-27-2024 US ABD RIGHT UPPER QUADRANT Normal [facility] US ABD SPLEEN -NBon 11-27-19 US ABD SPLEEN -NB Normal [facility] Basic metabolic 2000 panelon 11-26-2024 Anion gap [Moles/Vol] 10 mmol/L Normal 8-15 [facility] Comment on above: Order Comment: Speci men Type: BLOOD SPECIMENOrdering Facility: [facility] Address: [address] [place] [address] Performed By: #### 2 4321-2, , 2776-11 ####[facility] LABORATORYCLIA [id number] [place] [address] [place] Calcium [Mass/Vol] 9.2 mg/dL Normal 8.5-10.2 [facility] Comment on above: Order Comment: Speci men Type: BLOOD SPECIMENOrdering Facility: [facility] Address: [address] [place] [address] Performed By: #### 2 4321-2, , 2776-11 ####[facility] [facility]ORATORYCLIA [id number] [place] [address] [place] Chloride [Moles/Vol] 94 mmol/L Low 98-[address] [facility] Comment on above: Order Comment: Speci men Type: BLOOD SPECIMENOrdering Facility: [facility] Address: [address] [place] [address] Performed By: #### 2 4321-2, , 2776-11 ####[facility] LABORATORYCLIA [id number] [place] [id number] [place] CO2 [Moles/Vol] 28 mmol/L Normal 22-30 [facility] Comment on above: Order Comment: Speci men Type: BLOOD SPECIMENOrdering Facility: [facility] Address: [address] [place] [address] Performed By: #### 2 4321-2, , 2776-11 ####[facility] LABORATORYCLIA [id number] [place] [address] [place] Creatinine [Mass/Vol] 0.98 mg/dL High 0.58-0.96 [facility] Comment on above: Order Comment: Speci men Type: BLOOD SPECIMENOrdering Facility: [facility] Address: [address] [place] [address] Performed By: #### 2 4321-2, , 2776-11 ####[facility] LABORATORYCLIA [id number] [place] [id number] [facility] [place] Creatinine and Glomerular filtration rate.predicted panel (S/P/Bld) 56 mL/min/1.73m??? Low >=60 [facility] Comment on above: Order Comment: Fan meade Type: BLOOD SPECIMENOrdering Facility: [facility] Address: [address] [place] [address] Result Comment: Hilda mated Glomerular Filtration Rate (eGFR) is calculated using the 2020 CKD-EPI creatinine equation. This equation utilizes serum creatinine, sex, and age as parameters. The creatinine assay has traceable calibration to isotope dilution-mass spectrometry. Refer to KDIGO guidelines for clinical interpretation. In patients with unstable renal function, e.g. those with acute kidney injury, the eGFR may not accurately reflect actual GFR. Performed By: #### 2 4321-2, , 2776-11 ####[facility] LABORATORYCLIA [id number] [place] [id number] [place] Glucose [Mass/Vol] 244 mg/dL High 74-99 [facility] Comment on above: Order Comment: Fan meade Type: BLOOD SPECIMENOrdering Facility: [facility] Address: [address] [place] [address] Result Comment: The [place] Diabetes Association (ADA) provides guidance for cutoff values for fasting glucose and random glucose. The ADA defines fasting as no caloric intake for at least 8 hours. Fasting plasma glucose results between 100 to 125 mg/dL indicate increased risk for diabetes (prediabetes).Fasting plasma glucose results greater than or equal to 126 mg/dL meet the criteria for diagnosis of diabetes. In the absence of unequivocal hyperglycemia, results should be confirmed by repeat testing. In a patient with classic symptoms of hyperglycemia or hyperglycemic crisis, random plasma glucose results greater than or equal to 200 mg/dL meet the criteria for diagnosis of diabetes.Reference: Standards of Medical Care in Diabetes 2016, [place] Diabetes Association. Diabetes Care. 2016.39(Suppl 1). Performed By: #### 2 4321-2, , 2776-11 ####[facility] LABORATORYCLIA [id number] [place] [address] [place] Potassium [Moles/Vol] 4.4 mmol/L Normal 3.7-5.1 [facility] Comment on above: Order Comment: Speci men Type: BLOOD SPECIMENOrdering Facility: [facility] Address: [address] [place] [address] Performed By: #### 2 4321-2, , 2776-11 ####[facility] LABORATORYCLIA [id number] [place] [address] [place] Sodium [Moles/Vol] 132 mmol/L Low 136-144 [facility] Comment on above: Order Comment: Speci men Type: BLOOD SPECIMENOrdering Facility: [facility] Address: [address] [place] [address] Performed By: #### 2 4321-2, , 2776-11 ####[facility] LABORATORYCLIA [id number] [place] [address] [place] Urea nitrogen [Mass/Vol] 37 mg/dL High 7-21 [facility] Comment on above: Order Comment: Speci men Type: BLOOD SPECIMENOrdering Facility: [facility] Address: [address] [place] [address] Performed By: #### 2 4321-2, , 2776-11 ####[facility] LABORATORYCLIA [id number] [address] [place] CASE MANAGEMon 11-26-2024 CASE MANAGEM Normal [facility] CBC W Auto Differential pane l (Bld)on 11-26-2024 Basophils (Bld) [#/Vol] 0.04 10*3/uL Normal <0.11 [facility] Comment on above: Order Comment: Speci men Type: BLOOD SPECIMENOrdering Facility: [facility] Address: [address] [place] [address] Performed By: #### 5 7021-8 ####[facility] LABORATORYCLIA [id number] [place] [address] [place] Basophils/100 WBC (Bld) 0.4 % Normal [facility] Comment on above: Order Comment: Speci men Type: BLOOD SPECIMENOrdering Facility: [facility] Address: [address] [place] [address] Performed By: #### 5 7021-8 ####[facility] LABORATORYCLIA [id number] [place] [address] [place] Differential cell count method Nom (Bld) Auto Normal [facility] Comment on above: Order Comment: Speci men Type: BLOOD SPECIMENOrdering Facility: [facility] Address: [address] [place] [address] Performed By: #### 5 7021-8 ####[facility] LABORATORYCLIA [id number] [place] [address] [place] Eosinophils (Bld) [#/Vol] 0.41 10*3/uL Normal <0.46 [facility] Comment on above: Order Comment: Speci men Type: BLOOD SPECIMENOrdering Facility: [facility] Address: [address] [place] [address] Performed By: #### 5 7021-8 ####[facility] LABORATORYCLIA [id number] [address] STATES [facility] Eosinophils/100 WBC (Bld) 3.9 % Normal [facility] Comment on above: Order Comment: Speci men Type: BLOOD SPECIMENOrdering Facility: [facility] Address: [address] [place] [address] Performed By: #### 5 7021-8 ####[facility] LABORATORYCLIA [id number] [place] [address] [place] Erythrocyte distribution width (RBC) [Ratio] 14.9 % Normal 11.5-15.0 [facility] Comment on above: Order Comment: Speci men Type: BLOOD SPECIMENOrdering Facility: [facility] Address: [address] [place] [address] Performed By: #### 5 7021-8 ####[facility] LABORATORYCLIA [id number] [place] [address] [place] Hematocrit (Bld) [Volume fraction] 30.0 % Low 36.0-46.0 [facility] Comment on above: Order Comment: Speci men Type: BLOOD SPECIMENOrdering Facility: [facility] Address: [address] [place] [address] Performed By: #### 5 7021-8 ####[facility] LABORATORYCLIA [id number] [place] [address] [place] Hemoglobin (Bld) [Mass/Vol] 10.1 g/dL Low 11.5-15.5 [facility] Comment on above: Order Comment: Speci men Type: BLOOD SPECIMENOrdering Facility: [facility] Address: [address] [place] [address] Performed By: #### 5 7021-8 ####[facility] LABORATORYCLIA [id number] [place] [address] [place] Immature granulocytes (Bld) [#/Vol] 0.09 10*3/uL Normal <0.10 [facility] Comment on above: Order Comment: Speci men Type: BLOOD SPECIMENOrdering Facility: [facility] Address: [address] [place] [address] Performed By: #### 5 7021-8 ####[facility] LABORATORYCLIA [id number] [place] [address] [place] Immature granulocytes/100 WBC (Bld) 0.9 % Normal [facility] Comment on above: Order Comment: Speci men Type: BLOOD SPECIMENOrdering Facility: [facility] Address: [address] [place] [address] Performed By: #### 5 7021-8 ####[facility] LABORATORYCLIA [id number] [place] [address] [place] Lymphocytes (Bld) [#/Vol] 1.04 10*3/uL Normal 1.00-4.00 [facility] Comment on above: Order Comment: Speci men Type: BLOOD SPECIMENOrdering Facility: [facility] Address: [address] [place] [address] Performed By: #### 5 7021-8 ####[facility] LABORATORYCLIA [id number] [address] [place] Lymphocytes/100 WBC (Bld) 9.9 % Normal [facility] Comment on above: Order Comment: Speci men Type: BLOOD SPECIMENOrdering Facility: [facility] Address: [address] [place] [address] Performed By: #### 5 7021-8 ####[facility] LABORATORYCLIA [id number] [address] [place] MCH (RBC) [Entitic mass] 28.1 pg Normal 26.0-34.0 [facility] Comment on above: Order Comment: Speci men Type: BLOOD SPECIMENOrdering Facility: [facility] Address: [address] [place] [address] Performed By: #### 5 7021-8 ####[facility] LABORATORYCLIA [id number] [address] [place] MCHC (RBC) [Mass/Vol] 33.7 g/dL Normal 30.5-36.0 [facility] Comment on above: Order Comment: Speci men Type: BLOOD SPECIMENOrdering Facility: [facility] Address: [address] [place] [address] Performed By: #### 5 7021-8 ####[facility] LABORATORYCLIA [id number] [address] MCV (RBC) [Entitic vol] 83.3 fL Normal 80.0-100.0 [facility] Comment on above: Order Comment: Speci men Type: BLOOD SPECIMENOrdering Facility: [facility] Address: [address] [place] [address] Performed By: #### 5 7021-8 ####[facility] LABORATORYCLIA [id number] [place] [address] [place] Monocytes (Bld) [#/Vol] 0.93 10*3/uL High <0.87 [facility] Comment on above: Order Comment: Speci men Type: BLOOD SPECIMENOrdering Facility: [facility] Address: [address] [place] [address] Performed By: #### 5 7021-8 ####[facility] LABORATORYCLIA [id number] [place] [address] [place] Monocytes/100 WBC (Bld) 8.9 % Normal [facility] Comment on above: Order Comment: Speci men Type: BLOOD SPECIMENOrdering Facility: [facility] Address: [address] [place] [address] Performed By: #### 5 7021-8 ####[facility] LABORATORYCLIA [id number] [place] [address] [place] Neutrophils (Bld) [#/Vol] 7.97 10*3/uL High 1.45-7.50 [facility] Comment on above: Order Comment: Speci men Type: BLOOD SPECIMENOrdering Facility: [facility] Address: [address] [place] [address] Performed By: #### 5 7021-8 ####[facility] LABORATORYCLIA [id number] [place] [address] [place] Neutrophils/100 WBC (Bld) 76.0 % Normal [facility] Comment on above: Order Comment: Speci men Type: BLOOD SPECIMENOrdering Facility: [facility] Address: [address] [place] [address] Performed By: #### 5 7021-8 ####[facility] LABORATORYCLIA [id number] [place] [address] [place] Nucleated RBC (Bld) [#/Vol] 10*3/uL Normal <0.01 [facility] Comment on above: Order Comment: Speci men Type: BLOOD SPECIMENOrdering Facility: [facility] [facility] Address: [address] [place] [address] Performed By: #### 5 7021-8 ####VILL[facility]REAL LABORATORYCLIA [id number] [place] [address] [place] Nucleated RBC/100 WBC (Bld) [Ratio] 0.0 /100 WBC Normal [facility] Comment on above: Order Comment: Speci men Type: BLOOD SPECIMENOrdering Facility: [facility] Address: [address] [place] [address] Performed By: #### 5 7021-8 ####VILLARREAL LABORATORYCLIA [id number] [address] [place] Platelet mean volume (Bld) [Entitic vol] 9.0 fL Normal 9.0-12.7 [facility] Comment on above: Order Comment: Fan meade Type: BLOOD SPECIMENOrdering Facility: [facility] Address: [address] [place] [address] Performed By: #### 5 7021-8 ####[facility] LABORATORYCLIA [id number] [place] [address] [place] Platelets (Bld) [#/Vol] 381 10*3/uL Normal 150-400 [facility] Comment on above: Order Comment: Fan meade Type: BLOOD SPECIMENOrdering Facility: [facility] Address: [address] [place] [address] Performed By: #### 5 7021-8 ####[facility] LABORATORYCLIA [id number] [address] [place] RBC (Bld) [#/Vol] 3.60 10*6/uL Low 3.90-5.20 [facility] Comment on above: Order Comment: Fan meade Type: BLOOD SPECIMENOrdering Facility: [facility] Address: [address] [place] [address] Performed By: #### 5 7021-8 ####[facility] LABORATORYCLIA [id number] [address] [place] WBC (Bld) [#/Vol] 10.48 10*3/uL Normal 3.70-11.[address] 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 Pt is still inpatient. When she is discharged she will be sent to a rehab and will not be able to make appts. Any time soon. Please advise for further requirements. Grupo Mendez MD 11/26/2024 5:[address] Mendez reviewed labs from [facility]. Dr. Mendez recommended for patient to be seen around mid Dec 2024 as hem/onc follow-up. Grupo Mendez MD November 26, 2024 5:33 PM Allergies As of Date: 11/26/2024 (No Known Allergies) Date Reviewed: 11/26/2024 Reviewed by: Renetta Monge, LIT - Fully Assessed Reason for Visit: Appointment [186] Prescriptions as of 11/26/2024 - meloxicam (MOBIC) 15 mg tablet TAKE 1 TABLET BY MOUTH ONCE DAILY NEEDED FOR PAIN. DO NOT COMBINE WITH DICLOFENAC GEL - traZODone (DESYREL) 50 mg tablet Take 1 tablet by mouth at bedtime as needed for sedation. - blood sugar diagnostic (Giant SwarmTOUCH ULTRA TEST) test strip Test blood sugar once daily - glipiZIDE (GLUCOTROL XL) 2.5 mg 24 hr tablet TAKE 1 TABLET BY MOUTH ONCE DAILY - lisinopril-hydroCHLORO thiazide (ZESTORETIC) 20-25 mg per tablet Take 1 tablet by mouth once daily. - pioglitazone (ACTOS) 45 mg tablet Take 1 tablet by mouth once daily. - pravastatin (PRAVACHOL) 20 mg tablet Take 1 tablet by mouth once daily. - lansoprazole (PREVACID) 30 mg capsule Take 1 capsule by mouth once daily. - amLODIPine (NORVASC) 5 mg tablet TAKE 1 TABLET BY MOUTH ONCE DAILY - metFORMIN (GLUCOPHAGE) 850 mg tablet Take 1 tablet by mouth two times a day with meals. - diclofenac (VOLTAREN) 1 % topical gel Apply 2 g to affected area four times daily as needed. Facility-Administered Medications as of 11/26/2024 - ceFAZolin iv piggyback 2 g in D5W (iso-osmotic) 100 mL (ANCEF) - oxyCODONE IR 5 mg tab(s) (ROXICODONE) - insulin glargine 15 Units pen (long acting) - insulin lispro 6 Units injection (rapid acting) (ADMElog) - senna-docusate 8.6-50 mg 1 tablet (SENNA-S) - ferric gluconate 125 mg in NaCl 0.9% 100 mL (FERRLECIT) - traMADol 50 mg tab(s) (ULTRAM) - enoxaparin 30 mg injection (LOVENOX) - docusate sodium 100 mg cap(s) (COLACE) - dextrose 40 % 15 g - glucagon 1 mg injection - dextrose 10% iv bolus - aluminum-magnesium hydroxide-simethicone 200-200-20 mg/5 mL 30 mL - acetaminophen 650 mg tab(s) (TYLENOL) - insulin lispro injection (rapid acting) (ADMElog) - amLODIPine 5 mg tab(s) (NORVASC) - pravastatin 20 mg tab(s) (PRAVACHOL) - pantoprazole DR 40 mg tab(s) (PROTONIX) - traZODone 50 mg tab(s) (DESYREL) - lisinopril 20 mg tab(s) (ZESTRIL) - hydroCHLOROthiazide 25 mg tab(s) - NaCl 0.9% iv flush bag Meds Comments as of 03/30/2022: 03/30/22 The medications are managed by this patient by: CAREGIVER José Miguel Swanson [facility] Problem List As Of Date 11/26/2024 Noted Resolved Osteoarth NOS-other site [M19.90] 09/15/2011 BENIGN HYPERTENSION [I10] 12/01/2016 Diabetes mellitus without mention of complicati*04/10/2003 05/24/2011 Esophageal reflux [K21.9] 06/15/2006 Lumbago [M54.50] 05/31/2007 09/15/2011 Urgency of urination [R39.15] 10/12/2007 09/15/2011 Urge incontinence [N39.41] 10/12/2007 12/01/2016 Other functional disorder of bladder [N31.8] 10/12/2007 09/15/2011 Retention of urine, unspecified [R33.9] 10/12/2007 12/01/2016 Postmenopausal atrophic vaginitis [N95.2] 10/12/2007 05/11/2016 Urinary frequency [R35.0] 01/11/2008 09/15/2011 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] 04/18/2008 09/15/2011 Vertigo of central origin [H81.4] 01/08/2010 09/15/2011 Peripheral vertigo, unspecified [H81.399] 01/08/2010 09/15/2011 Diabetes Mellitus Type II, Uncontrolled; 1999 [*02/22/2010 12/01/2016 Degenerative arthritis of hip [M16.9] 10/31/2010 09/23/2014 Pain in joint, pelvic region and thigh [M25.559]10/31/2010 09/15/2011 Thoracic or lumbosacral neuritis or radiculitis*10/31/2010 09/15/2011 Lumbosacral spondylosis without myelopathy [M47*10/31/2010 09/15/2011 Degeneration of lumbar or lumbosacral intervert*10/31/2010 Osteoarth NOS-pelvis [M16.10] 11/16/2010 09/15/2011 Hyperlipidemia [E78.5] 02/19/2011 02/12/2014 Gait disturbance [R26.9] 05/20/2011 05/11/2016 Hip arthritis [M16.10] 05/20/2011 Diabetes mellitus type 2, controlled, without c*05/24/2011 05/11/2016 Renal dysfunction [N28.9] 03/07/2017 Varicose veins of lower extremities with other *09/27/2011 Osteoarthritis of ankle or foot, right [M19.071]10/19/2011 12/07/2017 Cervicalgia [M54.2] 07/17/2013 05/11/2016 Pain in joint, shoulder region [M25.519] 07/17/2013 09/23/2014 Dyslipidemia [E78.5] 02/12/2014 Shoulder arthritis [M19.019] 08/06/2014 Rotator cuff (capsule) sprain (more content not included)... Normal [facility] CONSULT PROGon 11-26-2024 CONSULT PROG [facility] CONSULT PROG [facility] CONSULT PROG [facility] CT ABD/PEL WO IVCONon 2024 CT ABD/PEL WO IVCON Normal [facility] Lipase SerPl-cCncon 11-26-19 25 Lipase [Catalytic activity/Vol] 22 U/L Normal 16-61 [facility] Comment on above: Order Comment: Speci men Type: BLOOD SPECIMENOrdering Facility: [facility] Address: [address] [place] [address] Performed By: #### 3 040-3 ####[facility] LABORATORYCLIA [id number] [place] [id number] [place] Magnesium SerPl-mCncon 11-26 Magnesium [Mass/Vol] 2.0 mg/dL Normal 1.7-2.[address] [facility] Comment on above: Order Comment: Speci men Type: BLOOD SPECIMENOrdering Facility: [facility] Address: [address] [place] [address] Performed By: #### 2 4321-2, 12558-2, 2777-1 ####[facility] LABORATORYCLIA [id number] [place] [id number] [place] [facility] Phosphate SerPl-mCncon 11-26 Phosphate [Mass/Vol] 3.0 mg/dL Normal 2.7-4.[address] [facility] Comment on above: Order Comment: Speci men Type: BLOOD SPECIMENOrdering Facility: [facility] Address: [address] [place] [address] Performed By: #### 2 4321-2, 96351-5, 2777-1 ####[facility] LABORATORYCLIA [id number] [place] [id number] [place] Basic metabolic 2000 panelon 11-25-2024 Anion gap [Moles/Vol] 12 mmol/L Normal 8-15 [facility] Comment on above: Order Comment: Speci men Type: BLOOD SPECIMENOrdering Facility: [facility] Address: [address] [place] [address] Performed By: #### 2 4320-2, ####VILLARREAL LABORATORYCLIA [id number] [place] [address] [place] Calcium [Mass/Vol] 8.9 mg/dL Normal 8.5-10.2 [facility] Comment on above: Order Comment: Speci men Type: BLOOD SPECIMENOrdering Facility: [facility] Address: [facility] [place] [address] Performed By: #### 2 4320-2, ####VILLARREAL LABORATORYCLIA [id number] [place] [address] [place] Chloride [Moles/Vol] 94 mmol/L Low 98-[address] [facility] Comment on above: Order Comment: Speci men Type: BLOOD SPECIMENOrdering Facility: [facility] Address: [address] [place] [address] Performed By: #### 2 2, ####VILLARREAL LABORATORYCLIA [id number] [place] [address] [place] CO2 [Moles/Vol] 24 mmol/L Normal 22-30 [facility] Comment on above: Order Comment: Speci men Type: BLOOD SPECIMENOrdering Facility: [facility] Address: [facility] [place] [address] Performed By: #### 2 2, ####VILLARREAL LABORATORYCLIA [id number] [place] [address] [place] Creatinine [Mass/Vol] 0.79 mg/dL Normal 0.58-0.96 [facility] Comment on above: Order Comment: Speci men Type: BLOOD SPECIMENOrdering Facility: [facility] Address: [address] [place] [address] Performed By: #### 2 432-2, ####VILLARREAL LABORATORYCLIA [id number] [place] [address] [place] Creatinine and Glomerular filtration rate.predicted panel (S/P/Bld) 72 mL/min/1.73m??? Normal >=60 [facility] Comment on above: Order Comment: Fan meade Type: BLOOD SPECIMENOrdering Facility: [facility] Address: [address] [place] [address] Result Comment: Hilda mated Glomerular Filtration Rate (eGFR) is calculated using the 2020 CKD-EPI creatinine equation. This equation utilizes serum creatinine, sex, and age as parameters. The creatinine assay has traceable calibration to isotope dilution-mass spectrometry. Refer to KDIGO guidelines for clinical interpretation. In patients with unstable renal function, e.g. those with acute kidney injury, the eGFR may not accurately reflect actual GFR. Performed By: #### 2 4321-2, ####VILLARREAL LABORATORYCLIA [id number] [place] [address] [place] Glucose [Mass/Vol] 251 mg/dL High 74-99 [facility] Comment on above: Order Comment: Fan meade Type: BLOOD SPECIMENOrdering Facility: [facility] Address: [address] [place] [address] Result Comment: The [place] Diabetes Association (ADA) provides guidance for cutoff values for fasting glucose and random glucose. The ADA defines fasting as no caloric intake for at least 8 hours. Fasting plasma glucose results between 100 to 125 mg/dL indicate increased risk for diabetes (prediabetes).Fasting plasma glucose results greater than or equal to 126 mg/dL meet the criteria for diagnosis of diabetes. In the absence of unequivocal hyperglycemia, results should be confirmed by repeat testing. In a patient with classic symptoms of hyperglycemia or hyperglycemic crisis, random plasma glucose results greater than or equal to 200 mg/dL meet the criteria for diagnosis of diabetes.Reference: Standards of Medical Care in Diabetes 2016, [place] Diabetes Association. Diabetes Care. 2016.39(Suppl 1). Performed By: #### 2 4321-2, ####[facility] LABORATORYCLIA [id number] [place] [address] [place] Potassium [Moles/Vol] 3.9 mmol/L Normal 3.7-5.1 [facility] Comment on above: Order Comment: Fan meade Type: BLOOD SPECIMENOrdering Facility: [facility] Address: [address] [place] [address] Performed By: #### 2 4321-2, ####VILLARREAL LABORATORYCLIA [id number] [address] [place] Sodium [Moles/Vol] 130 mmol/L Low 136-144 [facility] Comment on above: Order Comment: Speci men Type: BLOOD SPECIMENOrdering Facility: [facility] Address: [address] [place] [address] Performed By: #### 2 4321-2, ####VILLARREAL LABORATORYCLIA [id number] [address] STATES [facility] Urea nitrogen [Mass/Vol] 32 mg/dL High 7-21 [facility] Comment on above: Order Comment: Speci men Type: BLOOD SPECIMENOrdering Facility: [facility] Address: [address] [place] [address] Performed By: #### 2 432-2, ####VILLARREAL LABORATORYCLIA [id number] [address] CBC W Auto Differential pane l (Bld)on 11-25-2024 Basophils (Bld) [#/Vol] 0.05 10*3/uL Normal <0.11 [facility] Comment on above: Order Comment: Speci men Type: BLOOD SPECIMENOrdering Facility: [facility] Address: [address] [place] [address] Performed By: #### 5 7021-8 ####VILLARREAL LABORATORYCLIA [id number] [address] Basophils/100 WBC (Bld) 0.4 % Normal [facility] Comment on above: Order Comment: Speci men Type: BLOOD SPECIMENOrdering Facility: [facility] Address: [address] [place] [address] Performed By: #### 5 7021-8 ####VILLARREAL LABORATORYCLIA [id number] [address] Differential cell count method Nom (Bld) Auto Normal [facility] Comment on above: Order Comment: Speci men Type: BLOOD SPECIMENOrdering Facility: [facility] Address: [address] [place] [address] Performed By: #### 5 7021-8 ####VILLARREAL LABORATORYCLIA [id number] [place] [address] [place] Eosinophils (Bld) [#/Vol] 0.11 10*3/uL Normal <0.46 [facility] Comment on above: Order Comment: Speci men Type: BLOOD SPECIMENOrdering Facility: [facility] Address: [address] [place] [address] Performed By: #### 5 7021-8 ####VILLARREAL LABORATORYCLIA [id number] [place] [address] [place] Eosinophils/100 WBC (Bld) 0.8 % Normal [facility] Comment on above: Order Comment: Speci men Type: BLOOD SPECIMENOrdering Facility: [facility] Address: [address] [place] [address] Performed By: #### 5 7021-8 ####VILLARREAL LABORATORYCLIA [id number] [address] [place] Erythrocyte distribution width (RBC) [Ratio] 14.9 % Normal 11.5-15.0 [facility] Comment on above: Order Comment: Speci men Type: BLOOD SPECIMENOrdering Facility: [facility] Address: [address] [place] [address] Performed By: #### 5 7021-8 ####VILLARREAL LABORATORYCLIA [id number] [address] [place] Hematocrit (Bld) [Volume fraction] 31.8 % Low 36.0-46.0 [facility] Comment on above: Order Comment: Speci men Type: BLOOD SPECIMENOrdering Facility: [facility] Address: [address] [place] [address] Performed By: #### 5 7021-8 ####VILLARREAL LABORATORYCLIA [id number] [address] [place] Hemoglobin (Bld) [Mass/Vol] 10.5 g/dL Low 11.5-15.5 [facility] Comment on above: Order Comment: Speci men Type: BLOOD SPECIMENOrdering Facility: [facility] Address: [address] [place] [address] Performed By: #### 5 7021-8 ####VILLARREAL LABORATORYCLIA [id number] [address] [place] Immature granulocytes (Bld) [#/Vol] 0.09 10*3/uL Normal <0.10 [facility] Comment on above: Order Comment: Speci men Type: BLOOD SPECIMENOrdering Facility: [facility] Address: [address] [place] [address] Performed By: #### 5 7021-8 ####VILLARREAL LABORATORYCLIA [id number] [address] Immature granulocytes/100 WBC (Bld) 0.6 % Normal [facility] Comment on above: Order Comment: Speci men Type: BLOOD SPECIMENOrdering Facility: [facility] Address: [address] [place] [address] Performed By: #### 5 7021-8 ####VILLARREAL LABORATORYCLIA [id number] [address] [place] [facility] Lymphocytes (Bld) [#/Vol] 1.18 10*3/uL Normal 1.00-4.00 [facility] Comment on above: Order Comment: Speci men Type: BLOOD SPECIMENOrdering Facility: [facility] Address: [address] [place] [address] Performed By: #### 5 7021-8 ####VILLARREAL LABORATORYCLIA [id number] [address] Lymphocytes/100 WBC (Bld) 8.5 % Normal [facility] Comment on above: Order Comment: Speci men Type: BLOOD SPECIMENOrdering Facility: [facility] Address: [address] [place] [address] Performed By: #### 5 7021-8 ####VILLARREAL LABORATORYCLIA [id number] [address] MCH (RBC) [Entitic mass] 27.8 pg Normal 26.0-34.0 [facility] Comment on above: Order Comment: Speci men Type: BLOOD SPECIMENOrdering Facility: [facility] Address: [address] [place] [address] Performed By: #### 5 7021-8 ####VILLARREAL LABORATORYCLIA [id number] [place] [address] [place] MCHC (RBC) [Mass/Vol] 33.0 g/dL Normal 30.5-36.0 [facility] Comment on above: Order Comment: Speci men Type: BLOOD SPECIMENOrdering Facility: [facility] Address: [address] [place] [address] Performed By: #### 5 7021-8 ####VILLARREAL LABORATORYCLIA [id number] [place] [address] [place] MCV (RBC) [Entitic vol] 84.1 fL Normal 80.0-100.0 [facility] Comment on above: Order Comment: Speci men Type: BLOOD SPECIMENOrdering Facility: [facility] Address: [address] [place] [address] Performed By: #### 5 7021-8 ####VILLARREAL LABORATORYCLIA [id number] [place] [address] [place] Monocytes (Bld) [#/Vol] 1.11 10*3/uL High <0.87 [facility] Comment on above: Order Comment: Speci men Type: BLOOD SPECIMENOrdering Facility: [facility] Address: [address] [place] [address] Performed By: #### 5 7021-8 ####VILLARREAL LABORATORYCLIA [id number] [place] [address] [place] Monocytes/100 WBC (Bld) 8.0 % Normal [facility] Comment on above: Order Comment: Speci men Type: BLOOD SPECIMENOrdering Facility: [facility] Address: [address] [place] [address] Performed By: #### 5 7021-8 ####VILLARREAL LABORATORYCLIA [id number] [place] [address] [place] Neutrophils (Bld) [#/Vol] 11.41 10*3/uL High 1.45-7.50 [facility] Comment on above: Order Comment: Speci men Type: BLOOD SPECIMENOrdering Facility: [facility] Address: [address] [place] [address] Performed By: #### 5 7021-8 ####VILLARREAL LABORATORYCLIA [id number] [place] [address] [place] Neutrophils/100 WBC (Bld) 81.7 % Normal [facility] Comment on above: Order Comment: Speci men Type: BLOOD SPECIMENOrdering Facility: [facility] Address: [address] [place] [address] Performed By: #### 5 7021-8 ####VILLARREAL LABORATORYCLIA [id number] [place] [address] [place] Nucleated RBC (Bld) [#/Vol] 10*3/uL Normal <0.01 [facility] Comment on above: Order Comment: Speci men Type: BLOOD SPECIMENOrdering Facility: [facility] Address: [address] [place] [address] Performed By: #### 5 7021-8 ####VILLARREAL LABORATORYCLIA [id number] [place] [address] [place] Nucleated RBC/100 WBC (Bld) [Ratio] 0.0 /100 WBC Normal [facility] Comment on above: Order Comment: Speci men Type: BLOOD SPECIMENOrdering Facility: [facility] Address: [address] [place] [address] Performed By: #### 5 7021-8 ####VILLARREAL LABORATORYCLIA [id number] [place] [address] [place] Platelet mean volume (Bld) [Entitic vol] 9.4 fL Normal 9.0-12.7 [facility] Comment on above: Order Comment: Speci men Type: BLOOD SPECIMENOrdering Facility: [facility] Address: [address] [place] [address] Performed By: #### 5 7021-8 ####VILLARREAL LABORATORYCLIA [id number] [place] [address] [place] Platelets (Bld) [#/Vol] 358 10*3/uL Normal 150-400 [facility] Comment on above: Order Comment: Speci men Type: BLOOD SPECIMENOrdering Facility: [facility] Address: [address] [place] [place] [id number] Performed By: #### 5 7021-8 ####VILLARREAL LABORATORYCLIA [id number] [address] RBC (Bld) [#/Vol] 3.78 10*6/uL Low 3.90-5.20 [facility] Comment on above: Order Comment: Speci men Type: BLOOD SPECIMENOrdering Facility: [facility] Address: [address] [place] [address] Performed By: #### 5 7021-8 ####VILLARREAL LABORATORYCLIA [id number] [place] [id number] [facility] WBC (Bld) [#/Vol] 13.95 10*3/uL High 3.70-11.[address] [facility] Comment on above: Order Comment: Speci men Type: BLOOD SPECIMENOrdering Facility: [facility] Address: [address] [place] [address] Performed By: #### 5 7021-8 ####VILLARREAL LABORATORYCLIA [id number] [address] CONSULT PROGon 11-25-2024 CONSULT PROG Normal [facility] CONSULT PROG Normal [facility] Magnesium SerPl-mCncon 11-25 Magnesium [Mass/Vol] 1.1 mg/dL Low 1.7-2.[address] [facility] Comment on above: Order Comment: Speci men Type: BLOOD SPECIMENOrdering Facility: [facility] Address: [address] [place], [place] [address] Performed By: #### 2 4321-2, 79551-0 ####VILLARREAL LABORATORYCLIA [id number] [place] [id number] [facility] [place] Basic metabolic 2000 panelon 11-24-2024 Anion gap [Moles/Vol] 14 mmol/L Normal 8-15 [facility] Comment on above: Order Comment: Speci men Type: BLOOD SPECIMENOrdering Facility: [facility] Address: [address] [place] [address] Performed By: #### 2 4321-2 ####VILLARREAL LABORATORYCLIA [id number] [place] [address] [place] Calcium [Mass/Vol] 8.8 mg/dL Normal 8.5-10.2 [facility] Comment on above: Order Comment: Speci men Type: BLOOD SPECIMENOrdering Facility: [facility] Address: [address] [place] [address] Performed By: #### 2 4321-2 ####VILLARREAL LABORATORYCLIA [id number] [place] [address] [place] Chloride [Moles/Vol] 95 mmol/L Low 98-[address] [facility] Comment on above: Order Comment: Speci men Type: BLOOD SPECIMENOrdering Facility: [facility] Address: [address] [place] [address] Performed By: #### 2 4321-2 ####VILLARREAL LABORATORYCLIA [id number] [place] [address] [place] CO2 [Moles/Vol] 24 mmol/L Normal 22-30 [facility] Comment on above: Order Comment: Speci men Type: BLOOD SPECIMENOrdering Facility: [facility] Address: [address] [place] [address] Performed By: #### 2 4321-2 ####VILLARREAL LABORATORYCLIA [id number] [address] [place] Creatinine [Mass/Vol] 0.92 mg/dL Normal 0.58-0.96 [facility] Comment on above: Order Comment: Speci men Type: BLOOD SPECIMENOrdering Facility: [facility] Address: [address] [place] [address] Performed By: #### 2 4321-2 ####VILLARREAL LABORATORYCLIA [id number] [address] Creatinine and Glomerular filtration rate.predicted panel (S/P/Bld) 60 mL/min/1.73m??? Normal >=60 [facility] Comment on above: Order Comment: Speci men Type: BLOOD SPECIMENOrdering Facility: [facility] Address: [address] [place] [address] Result Comment: Hilda mated Glomerular Filtration Rate (eGFR) is calculated using the 2020 CKD-EPI creatinine equation. This equation utilizes serum creatinine, sex, and age as parameters. The creatinine assay has traceable calibration to isotope dilution-mass spectrometry. Refer to KDIGO guidelines for clinical interpretation. In patients with unstable renal function, e.g. those with acute kidney injury, the eGFR may not accurately reflect actual GFR. Performed By: #### 2 4321-2 ####[facility] LABORATORYCLIA [id number] [place] [id number] [place] Glucose [Mass/Vol] 202 mg/dL High 74-99 [facility] Comment on above: Order Comment: Fan men Type: BLOOD SPECIMENOrdering Facility: [facility] Address: [address] [place] [address] Result Comment: The [place] Diabetes Association (ADA) provides guidance for cutoff values for fasting glucose and random glucose. The ADA defines fasting as no caloric intake for at least 8 hours. Fasting plasma glucose results between 100 to 125 mg/dL indicate increased risk for diabetes (prediabetes).Fasting plasma glucose results greater than or equal to 126 mg/dL meet the criteria for diagnosis of diabetes. In the absence of unequivocal hyperglycemia, results should be confirmed by repeat testing. In a patient with classic symptoms of hyperglycemia or hyperglycemic crisis, random plasma glucose results greater than or equal to 200 mg/dL meet the criteria for diagnosis of diabetes.Reference: Standards of Medical Care in Diabetes 2016, [place] Diabetes Association. Diabetes Care. 2016.39(Suppl 1). Performed By: #### 2 4321-2 ####[facility] LABORATORYCLIA [id number] [place] [id number] [place] Potassium [Moles/Vol] 4.0 mmol/L Normal 3.7-5.1 [facility] Comment on above: Order Comment: Katei men Type: BLOOD SPECIMENOrdering Facility: [facility] Address: [address] [place] [id number] Performed By: #### 2 4321-2 ####[facility] LABORATORYCLIA [id number] [place] [id number] [place] Sodium [Moles/Vol] 133 mmol/L Low 136-144 [facility] Comment on above: Order Comment: Speci men Type: BLOOD SPECIMENOrdering Facility: [facility] Address: [address] [place] [address] Performed By: #### 2 4321-2 ####[facility] LABORATORYCLIA [id number] [address] STATES [facility] Urea nitrogen [Mass/Vol] 39 mg/dL High 7-21 [facility] Comment on above: Order Comment: Speci men Type: BLOOD SPECIMENOrdering Facility: [facility] Address: [address] [place] [address] Performed By: #### 2 4321-2 ####[facility] LABORATORYCLIA [id number] [address] [place] CBC panel Auto (Bld)on 11-24 Erythrocyte distribution width (RBC) [Ratio] 15.2 % High 11.5-15.0 [facility] Comment on above: Order Comment: Speci men Type: BLOOD SPECIMENOrdering Facility: [facility] Address: [address] [place] [address] Performed By: #### 5 8410-2 ####[facility] LABORATORYCLIA [id number] [address] Hematocrit (Bld) [Volume fraction] 29.3 % Low 36.0-46.0 [facility] Comment on above: Order Comment: Speci men Type: BLOOD SPECIMENOrdering Facility: [facility] Address: [address] [place] [address] Performed By: #### 5 8410-2 ####[facility] LABORATORYCLIA [id number] [address] [place] [facility] Hemoglobin (Bld) [Mass/Vol] 9.7 g/dL Low 11.5-15.5 [facility] Comment on above: Order Comment: Speci men Type: BLOOD SPECIMENOrdering Facility: [facility] Address: [address] [place] [address] Performed By: #### 5 8410-2 ####[facility] LABORATORYCLIA [id number] [address] [place] MCH (RBC) [Entitic mass] 27.8 pg Normal 26.0-34.0 [facility] Comment on above: Order Comment: Speci men Type: BLOOD SPECIMENOrdering Facility: [facility] Address: [address] [place] [address] Performed By: #### 5 8410-2 ####V[facility] LABORATORYCLIA [id number] [place] [address] [place] MCHC (RBC) [Mass/Vol] 33.1 g/dL Normal 30.5-36.0 [facility] Comment on above: Order Comment: Speci men Type: BLOOD SPECIMENOrdering Facility: [facility] Address: [address] [place] [address] Performed By: #### 5 8410-2 ####[facility] LABORATORYCLIA [id number] [address] [place] MCV (RBC) [Entitic vol] 84.0 fL Normal 80.0-100.0 [facility] Comment on above: Order Comment: Speci men Type: BLOOD SPECIMENOrdering Facility: [facility] Address: [address] [place] [address] Performed By: #### 5 8410-2 ####V[facility] LABORATORYCLIA [id number] [address] [place] Nucleated RBC (Bld) [#/Vol] 10*3/uL Normal <0.01 [facility] Comment on above: Order Comment: Speci men Type: BLOOD SPECIMENOrdering Facility: [facility] Address: [address] [place] [address] Performed By: #### 5 8410-2 ####[facility] LABORATORYCLIA [id number] [address] [place] Platelet mean volume (Bld) [Entitic vol] 9.5 fL Normal 9.0-12.7 [facility] Comment on above: Order Comment: Speci men Type: BLOOD SPECIMENOrdering Facility: [facility] Address: [address] [place] [address] Performed By: #### 5 8410-2 ####V[facility] LABORATORYCLIA [id number] [place] [address] [facility] [place] Platelets (Bld) [#/Vol] 338 10*3/uL Normal 150-400 [facility] Comment on above: Order Comment: Speci men Type: BLOOD SPECIMENOrdering Facility: [facility] Address: [address] [place] [address] Performed By: #### 5 8410-2 ####V[facility] LABORATORYCLIA [id number] [place] [address] [place] RBC (Bld) [#/Vol] 3.49 10*6/uL Low 3.90-5.20 [facility] Comment on above: Order Comment: Speci men Type: BLOOD SPECIMENOrdering Facility: [facility] Address: [address] [place] [address] Performed By: #### 5 8410-2 ####[facility] LABORATORYCLIA [id number] [address] [place] WBC (Bld) [#/Vol] 12.48 10*3/uL High 3.70-11.[address] [facility] Comment on above: Order Comment: Speci men Type: BLOOD SPECIMENOrdering Facility: [facility] Address: [address] [place] [address] Performed By: #### 5 8410-2 ####[facility] LABORATORYCLIA [id number] [address] [place] CONSULTon 11-24-2024 CONSULT Normal [facility] CONSULT PROGon 11-24-2024 CONSULT PROG [facility] CONSULT PROG [facility] Vancomycin [place] SerPl-mCncon 11-24-2024 Vancomycin random [Mass/Vol] 11.6 ug/mL Normal 10.0-20.0 [facility] Comment on above: Order Comment: Speci men Type: BLOOD SPECIMENOrdering Facility: [facility] Address: [address] [place] [address] Result Comment: Refe rence ranges and high/low indicator flags are provided as general guidelines only. The treating physician must determine appropriate target levels/dosing based on the specific clinical situation. Performed By: #### 4 091-5 ####[facility] LABORATORYCLIA [id number] [place] [address] [place] Basic metabolic 2000 panelon 11-23-2024 Anion gap [Moles/Vol] 14 mmol/L Normal 8-15 [facility] Comment on above: Order Comment: Speci men Type: BLOOD SPECIMENOrdering Facility: [facility] Address: [address] [place] [address] Performed By: #### 2 4321-2 ####[facility] LABORATORYCLIA [id number] [place] [address] [place] Calcium [Mass/Vol] 8.7 mg/dL Normal 8.5-10.2 [facility] Comment on above: Order Comment: Speci men Type: BLOOD SPECIMENOrdering Facility: [facility] Address: [address] [place] [address] Performed By: #### 2 4321-2 ####[facility] LABORATORYCLIA [id number] [place] [address] [place] Chloride [Moles/Vol] 98 mmol/L Normal 98-[address] [facility] Comment on above: Order Comment: Speci men Type: BLOOD SPECIMENOrdering Facility: [facility] Address: [address] [place] [address] Performed By: #### 2 4321-2 ####[facility] LABORATORYCLIA [id number] [place] [address] [place] CO2 [Moles/Vol] 24 mmol/L Normal 22-30 [facility] Comment on above: Order Comment: Speci men Type: BLOOD SPECIMENOrdering Facility: [facility] Address: [address] [place] [address] Performed By: #### 2 4321-2 ####[facility] LABORATORYCLIA [id number] [place] [address] [place] Creatinine [Mass/Vol] 0.96 mg/dL Normal 0.58-0.96 [facility] Comment on above: Order Comment: Speci men Type: BLOOD SPECIMENOrdering Facility: [facility] Address: [address] [place] [address] Performed By: #### 2 4321-2 ####V[facility] LABORATORYCLIA [id number] [place] [address] [place] Creatinine and Glomerular filtration rate.predicted panel (S/P/Bld) 57 mL/min/1.73m??? Low >=60 [facility] Comment on above: Order Comment: Fan meade Type: BLOOD SPECIMENOrdering Facility: [facility] Address: [address] [place] [address] Result Comment: Hilda mated Glomerular Filtration Rate (eGFR) is calculated using the 2020 CKD-EPI creatinine equation. This equation utilizes serum creatinine, sex, and age as parameters. The creatinine assay has traceable calibration to isotope dilution-mass spectrometry. Refer to KDIGO guidelines for clinical interpretation. In patients with unstable renal function, e.g. those with acute kidney injury, the eGFR may not accurately reflect actual GFR. Performed By: #### 2 4321-2 ####[facility] LABORATORYCLIA [id number] [place] [address] [place] Glucose [Mass/Vol] 193 mg/dL High 74-99 [facility] Comment on above: Order Comment: Fan meade Type: BLOOD SPECIMENOrdering Facility: [facility] Address: [address] [place] [address] Result Comment: The [place] Diabetes Association (ADA) provides guidance for cutoff values for fasting glucose and random glucose. The ADA defines fasting as no caloric intake for at least 8 hours. Fasting plasma glucose results between 100 to 125 mg/dL indicate increased risk for diabetes (prediabetes).Fasting plasma glucose results greater than or equal to 126 mg/dL meet the criteria for diagnosis of diabetes. In the absence of unequivocal hyperglycemia, results should be confirmed by repeat testing. In a patient with classic symptoms of hyperglycemia or hyperglycemic crisis, random plasma glucose results greater than or equal to 200 mg/dL meet the criteria for diagnosis of diabetes.Reference: Standards of Medical Care in Diabetes 2016, [place] Diabetes Association. Diabetes Care. 2016.39(Suppl 1). Performed By: #### 2 4321-2 ####V[facility] LABORATORYCLIA [id number] [place] [address] [place] Potassium [Moles/Vol] 4.1 mmol/L Normal 3.7-5.1 [facility] Comment on above: Order Comment: Speci men Type: BLOOD SPECIMENOrdering Facility: [facility] Address: [address] [place] [address] Performed By: #### 2 4321-2 ####[facility] LABORATORYCLIA [id number] [address] Sodium [Moles/Vol] 136 mmol/L Normal 136-144 [facility] Comment on above: Order Comment: Speci men Type: BLOOD SPECIMENOrdering Facility: [facility] Address: [address] [place] [address] Performed By: #### 2 4321-2 ####V[facility] LABORATORYCLIA [id number] [address] [place] [facility] Urea nitrogen [Mass/Vol] 31 mg/dL High 7-21 [facility] Comment on above: Order Comment: Speci men Type: BLOOD SPECIMENOrdering Facility: [facility] Address: [address] [place] [address] Performed By: #### 2 4321-2 ####[facility] LABORATORYCLIA [id number] [address] OF [facility] CASE MANAGEMon 11-23-2024 CASE MANAGEM Normal [facility] CBC panel Auto (Bld)on 11-23 Erythrocyte distribution width (RBC) [Ratio] 15.1 % High 11.5-15.0 [facility] Comment on above: Order Comment: Speci men Type: BLOOD SPECIMENOrdering Facility: [facility] Address: [address] [place] [address] Performed By: #### 5 8410-2 ####[facility] LABORATORYCLIA [id number] [address] Hematocrit (Bld) [Volume fraction] 30.5 % Low 36.0-46.0 [facility] Comment on above: Order Comment: Speci men Type: BLOOD SPECIMENOrdering Facility: [facility] Address: [address] [place] [address] Performed By: #### 5 8410-2 ####[facility] LABORATORYCLIA [id number] [place] [address] [place] Hemoglobin (Bld) [Mass/Vol] 10.2 g/dL Low 11.5-15.5 [facility] Comment on above: Order Comment: Speci men Type: BLOOD SPECIMENOrdering Facility: [facility] Address: [address] [place] [address] Performed By: #### 5 8410-2 ####[facility] LABORATORYCLIA [id number] [address] MCH (RBC) [Entitic mass] 28.2 pg Normal 26.0-34.0 [facility] Comment on above: Order Comment: Speci men Type: BLOOD SPECIMENOrdering Facility: [facility] Address: [address] [place] [address] Performed By: #### 5 8410-2 ####[facility] LABORATORYCLIA [id number] [address] MCHC (RBC) [Mass/Vol] 33.4 g/dL Normal 30.5-36.0 [facility] Comment on above: Order Comment: Speci men Type: BLOOD SPECIMENOrdering Facility: [facility] Address: [address] [place] [address] Performed By: #### 5 8410-2 ####[facility] LABORATORYCLIA [id number] [address] MCV (RBC) [Entitic vol] 84.3 fL Normal 80.0-100.0 [facility] Comment on above: Order Comment: Speci men Type: BLOOD SPECIMENOrdering Facility: [facility] Address: [address] [place] [address] Performed By: #### 5 8410-2 ####[facility] LABORATORYCLIA [id number] [address] Nucleated RBC (Bld) [#/Vol] 10*3/uL Normal <0.01 [facility] Comment on above: Order Comment: Speci men Type: BLOOD SPECIMENOrdering Facility: [facility] Address: [address] [place] [address] Performed By: #### 5 8410-2 ####V[facility] LABORATORYCLIA [id number] [place] [address] [place] Platelet mean volume (Bld) [Entitic vol] 9.5 fL Normal 9.0-12.7 [facility] Comment on above: Order Comment: Speci men Type: BLOOD SPECIMENOrdering Facility: [facility] Address: [address] [place] [address] Performed By: #### 5 8410-2 ####[facility] LABORATORYCLIA [id number] [place] [address] [place] Platelets (Bld) [#/Vol] 338 10*3/uL Normal 150-400 [facility] Comment on above: Order Comment: Speci men Type: BLOOD SPECIMENOrdering Facility: [facility] Address: [address] [place] [address] Performed By: #### 5 8410-2 ####[facility] LABORATORYCLIA [id number] [place] [address] [place] RBC (Bld) [#/Vol] 3.62 10*6/uL Low 3.90-5.20 [facility] Comment on above: Order Comment: Speci men Type: BLOOD SPECIMENOrdering Facility: [facility] Address: [address] [place] [address] Performed By: #### 5 8410-2 ####[facility] LABORATORYCLIA [id number] [address] [place] WBC (Bld) [#/Vol] 15.48 10*3/uL High 3.70-11.[address] [facility] Comment on above: Order Comment: Speci men Type: BLOOD SPECIMENOrdering Facility: [facility] Address: [address] [place] [address] Performed By: #### 5 8410-2 ####[facility] LABORATORYCLIA [id number] [address] [place] CONSULT PROGon 11-23-2024 CONSULT PROG Normal [facility] THERAPY NTon 11-23-2024 THERAPY NT Normal [facility] THERAPY NT Normal [facility] Bacteria Spec Anaerobe Culto n 11-22-2024 Bacteria identified Anaer cx Nom (Unsp spec) Negative Normal [facility] Comment on above: Performed By: #### 6 462-6, 635-3 ####[facility] LABCLIA [id number] [place] [id number] [place] Bacteria Wnd Culton 11-22-19 25 Bacteria identified Cx Nom (Wound) ORGANISM ID: 1 Many Staphylococcus aureus Refer to specimen collected on 11/21/2024 at 10:34 PM [[id number]] GRAM STAIN: Rare Gram positive cocci Rare Polymorphonuclear leukocytes Abnormal [facility] Comment on above: Performed By: #### 6 462-6, 635-3 ####[facility] LABCLIA [id number] [place] [address] [place] Basic metabolic 2000 panelon 11-22-2024 Anion gap [Moles/Vol] 11 mmol/L Normal 8-15 [facility] Comment on above: Order Comment: Speci men Type: BLOOD SPECIMENOrdering Facility: [facility] Address: [address] [place] [address] Performed By: #### 2 4321-2 ####[facility] LABORATORYCLIA [id number] [place] [address] [place] Calcium [Mass/Vol] 8.2 mg/dL Low 8.5-10.2 [facility] Comment on above: Order Comment: Speci men Type: BLOOD SPECIMENOrdering Facility: [facility] Address: [address] [place] [address] Performed By: #### 2 4321-2 ####[facility] LABORATORYCLIA [id number] [place] [address] [place] Chloride [Moles/Vol] 97 mmol/L Low 98-[address] [facility] Comment on above: Order Comment: Speci men Type: BLOOD SPECIMENOrdering Facility: [facility] Address: [address] [place] [address] Performed By: #### 2 4321-2 ####[facility] LABORATORYCLIA [id number] [place] [address] [place] CO2 [Moles/Vol] 25 mmol/L Normal 22-30 [facility] Comment on above: Order Comment: Fan meade Type: BLOOD SPECIMENOrdering Facility: [facility] Address: [address] [place] [address] Performed By: #### 2 4321-2 ####V[facility] LABORATORYCLIA [id number] [address] STATES OF [facility] Creatinine [Mass/Vol] 0.89 mg/dL Normal 0.58-0.96 [facility] Comment on above: Order Comment: Fan meade Type: BLOOD SPECIMENOrdering Facility: [facility] Address: [address] [place] [address] Performed By: #### 2 4321-2 ####[facility] LABORATORYCLIA [id number] [address] Creatinine and Glomerular filtration rate.predicted panel (S/P/Bld) 62 mL/min/1.73m??? Normal >=60 [facility] Comment on above: Order Comment: Fan meade Type: BLOOD SPECIMENOrdering Facility: [facility] Address: [address] [place] [address] Result Comment: Hilda mated Glomerular Filtration Rate (eGFR) is calculated using the 2020 CKD-EPI creatinine equation. This equation utilizes serum creatinine, sex, and age as parameters. The creatinine assay has traceable calibration to isotope dilution-mass spectrometry. Refer to KDIGO guidelines for clinical interpretation. In patients with unstable renal function, e.g. those with acute kidney injury, the eGFR may not accurately reflect actual GFR. Performed By: #### 2 4321-2 ####[facility] LABORATORYCLIA [id number] [address] [place] Glucose [Mass/Vol] 291 mg/dL High 74-99 [facility] Comment on above: Order Comment: [place] meade Type: BLOOD SPECIMENOrdering Facility: [facility] Address: [address] [place] [address] Result Comment: The [place] Diabetes Association (ADA) provides guidance for cutoff values for fasting glucose and random glucose. The ADA defines fasting as no caloric intake for at least 8 hours. Fasting plasma glucose results between 100 to 125 mg/dL indicate increased risk for diabetes (prediabetes).Fasting plasma glucose results greater than or equal to 126 mg/dL meet the criteria for diagnosis of diabetes. In the absence of unequivocal hyperglycemia, results should be confirmed by repeat testing. In a patient with classic symptoms of hyperglycemia or hyperglycemic crisis, random plasma glucose results greater than or equal to 200 mg/dL meet the criteria for diagnosis of diabetes.Reference: Standards of Medical Care in Diabetes 2016, [place] Diabetes Association. Diabetes Care. 2016.39(Suppl 1). Performed By: #### 2 4321-2 ####[facility] LABORATORYCLIA [id number] [address] [place] Potassium [Moles/Vol] 4.1 mmol/L Normal 3.7-5.1 [facility] Comment on above: Order Comment: Fan meade Type: BLOOD SPECIMENOrdering Facility: [facility] Address: [address] [place] [address] Performed By: #### 2 4321-2 ####V[facility] LABORATORYCLIA [id number] [address] [place] Sodium [Moles/Vol] 133 mmol/L Low 136-144 [facility] Comment on above: Order Comment: Fan meade Type: BLOOD SPECIMENOrdering Facility: [facility] Address: [address] [place] [address] Performed By: #### 2 4321-2 ####V[facility] LABORATORYCLIA [id number] [address] [place] Urea nitrogen [Mass/Vol] 30 mg/dL High 7-21 [facility] Comment on above: Order Comment: Fan meade Type: BLOOD SPECIMENOrdering Facility: [facility] Address: [address] [place] [address] Performed By: #### 2 4321-2 ####VILL[facility] LABORATORYCLIA [id number] [place] [id number] [place] CASE MGT INIT ASSESon 2024 [facility] CBC panel Auto (Bld)on 11-22 Erythrocyte distribution width (RBC) [Ratio] 15.2 % High 11.5-15.0 [facility] Comment on above: Order Comment: Speci men Type: BLOOD SPECIMENOrdering Facility: [facility] Address: [address] [place] [address] Performed By: #### 5 8410-2 ####V[facility] LABORATORYCLIA [id number] [address] Hematocrit (Bld) [Volume fraction] 28.5 % Low 36.0-46.0 [facility] Comment on above: Order Comment: Speci men Type: BLOOD SPECIMENOrdering Facility: [facility] Address: [address] [place] [address] Performed By: #### 5 8410-2 ####VILL[facility] LABORATORYCLIA [id number] [address] Hemoglobin (Bld) [Mass/Vol] 9.3 g/dL Low 11.5-15.5 [facility] Comment on above: Order Comment: Speci men Type: BLOOD SPECIMENOrdering Facility: [facility] Address: [address] [place] [address] Performed By: #### 5 8410-2 ####[facility] LABORATORYCLIA [id number] [address] MCH (RBC) [Entitic mass] 27.8 pg Normal 26.0-34.0 [facility] Comment on above: Order Comment: Speci men Type: BLOOD SPECIMENOrdering Facility: [facility] Address: [address] [place] [address] Performed By: #### 5 8410-2 ####[facility] LABORATORYCLIA [id number] [address] MCHC (RBC) [Mass/Vol] 32.6 g/dL Normal 30.5-36.0 [facility] Comment on above: Order Comment: Speci men Type: BLOOD SPECIMENOrdering Facility: [facility] Address: [address] [place] [address] Performed By: #### 5 8410-2 ####[facility] LABORATORYCLIA [id number] [address] MCV (RBC) [Entitic vol] 85.3 fL Normal 80.0-100.0 [facility] Comment on above: Order Comment: Speci men Type: BLOOD SPECIMENOrdering Facility: [facility] Address: [address] [place] [address] Performed By: #### 5 8410-2 ####[facility] LABORATORYCLIA [id number] [place] [address] [place] Nucleated RBC (Bld) [#/Vol] 10*3/uL Normal <0.01 [facility] Comment on above: Order Comment: Speci men Type: BLOOD SPECIMENOrdering Facility: [facility] [facility] Address: [address] [place] [address] Performed By: #### 5 8410-2 ####[facility] LABORATORYCLIA [id number] [address] [place] Platelet mean volume (Bld) [Entitic vol] 9.5 fL Normal 9.0-12.7 [facility] Comment on above: Order Comment: Speci men Type: BLOOD SPECIMENOrdering Facility: [facility] Address: [address] [place] [address] Performed By: #### 5 8410-2 ####[facility] LABORATORYCLIA [id number] [address] [place] Platelets (Bld) [#/Vol] 294 10*3/uL Normal 150-400 [facility] Comment on above: Order Comment: Speci men Type: BLOOD SPECIMENOrdering Facility: [facility] Address: [address] [place] [address] Performed By: #### 5 8410-2 ####[facility] LABORATORYCLIA [id number] [place] [address] [place] RBC (Bld) [#/Vol] 3.34 10*6/uL Low 3.90-5.20 [facility] Comment on above: Order Comment: Speci men Type: BLOOD SPECIMENOrdering Facility: [facility] Address: [address] [place] [address] Performed By: #### 5 8410-2 ####VILLAR[facility] LABORATORYCLIA [id number] [place] [address] [place] WBC (Bld) [#/Vol] 15.66 10*3/uL High 3.70-11.[address] [facility] Comment on above: Order Comment: Speci men Type: BLOOD SPECIMENOrdering Facility: [facility] Address: [address] [place] [address] Performed By: #### 5 8410-2 ####[facility]ORATORYCLIA [id number] [address] [place] CONSULTon 11-22-2024 CONSULT Normal [facility] CONSULT PROGon 11-22-2024 CONSULT PROG [facility] ESR Westergren method (Bld) [Velocity]on 11-22-2024 ESR (Bld) [Velocity] 40 mm/h High 0-[address] [facility] Comment on above: Order Comment: Speci men Type: BLOOD SPECIMENOrdering Facility: [facility] Address: [address] [place] [address] Performed By: #### 4 537-7 ####[facility] LABCLIA [id number] [address] [place] HISTORY PHYSICALon HISTORY PHYSICAL Normal [facility] NUTRITIONon 11-22-2024 NUTRITION Normal [facility] SEPSIS LACTATE W/ REFLEX (SE COND)on 11-22-2024 Lactate [Moles/Vol] 1.9 mmol/L Normal 0.5-2.0 [facility] Comment on above: Order Comment: Speci men Type: BLOOD SPECIMENOrdering Facility: [facility] Address: [address] [place] [address] Performed By: #### S LACT2 ####[facility] LABORATORYCLIA [id number] [place] [id number] [place] US ANKLE BRACHIAL INDICESon 11-22-2024 US ANKLE BRACHIAL INDICES Normal [facility] Bacteria Bld Culton 11-21-19 25 Bacteria identified Cx Nom (Bld) CULTURE, BLOOD: No growth 5 days Normal [facility] Comment on above: Performed By: #### 6 00-7 ####[facility] LABCLIA [id number] [place] [address] [place] Bacteria identified Cx Nom (Bld) ORGANISM ID: 1 Gram positive diphtheroid-like bacilli Probable contaminant. Susceptibility testing will not be performed. Call lab within 72 hours to initiate workup if clinically indicated. GRAM STAIN: Gram positive bacilli Abnormal [facility] Comment on above: Performed By: #### 6 00-7 ####[facility] LABCLIA [id number] [place] [address] [place] Bacteria Wnd Culton 11-21-19 25 Bacteria identified Cx Nom (Wound) Abnormal [facility] Comment on above: Performed By: #### 6 462-6 ####[facility] LABCLIA [id number] [place] [address] [place] CBC W Auto Differential pane l (Bld)on 11-21-2024 Basophils (Bld) [#/Vol] 0.04 10*3/uL Normal <0.11 [facility] Comment on above: Order Comment: Speci men Type: BLOOD SPECIMENOrdering Facility: [facility] Address: [address] [place] [address] Performed By: #### 5 5454-3 ####[facility] LABCLIA [id number] [address] [place]#### 42912-3 ####[facility]ORATORYCLIA [id number] [address] [place] Basophils/100 WBC (Bld) 0.2 % Normal [facility] Comment on above: Order Comment: Speci men Type: BLOOD SPECIMENOrdering Facility: [facility] Address: [address] [place] [address] Performed By: #### 5 5454-3 ####[facility] LABCLIA [id number] [place] [address] [place]#### 80479-4 ####[facility]ORATORYCLIA [id number] [place] [address] [place] Differential cell count method Nom (Bld) Auto Normal [facility] Comment on above: Order Comment: Speci men Type: BLOOD SPECIMENOrdering Facility: [facility] Address: [address] [place] [address] Performed By: #### 5 5454-3 ####[facility] LABCLIA [id number] [place] [address] [place]#### 31814-3 ####[facility] LABORATORYCLIA [id number] [place] [address] [place] Eosinophils (Bld) [#/Vol] 10*3/uL Normal <0.46 [facility] Comment on above: Order Comment: Speci men Type: BLOOD SPECIMENOrdering Facility: [facility] Address: [address] [place] [address] Performed By: #### 5 5454-3 ####[facility] LABCLIA [id number] [place] [address] [place]#### 97868-0 ####[facility] LABORATORYCLIA [id number] [place] [address] [place] Eosinophils/100 WBC (Bld) 0.0 % Normal [facility] Comment on above: Order Comment: Speci men Type: BLOOD SPECIMENOrdering Facility: [facility] Address: [address] [place] [address] Performed By: #### 5 5454-3 ####[facility] LABCLIA [id number] [place] [address] [place]#### 00009-6 ####[facility] LABORATORYCLIA [id number] [place] [address] [place] Erythrocyte distribution width (RBC) [Ratio] 15.0 % Normal 11.5-15.0 [facility] Comment on above: Order Comment: Speci men Type: BLOOD SPECIMENOrdering Facility: [facility] Address: [address] [place] [address] Performed By: #### 5 5454-3 ####[facility] LABCLIA [id number] [place] [address] [place]#### 50128-6 ####[facility] LABORATORYCLIA [id number] [place] [address] [place] Hematocrit (Bld) [Volume fraction] 32.3 % Low 36.0-46.0 [facility] Comment on above: Order Comment: Speci men Type: BLOOD SPECIMENOrdering Facility: [facility] Address: [address] [place] [address] Performed By: #### 5 5454-3 ####[facility] LABCLIA [id number] [place] [address] [place]#### 21174-1 ####[facility] LABORATORYCLIA [id number] [place] [address] [place] Hemoglobin (Bld) [Mass/Vol] 10.9 g/dL Low 11.5-15.5 [facility] Comment on above: Order Comment: Speci men Type: BLOOD SPECIMENOrdering Facility: [facility] Address: [address] [place] [address] Performed By: #### 5 5454-3 ####[facility] LABCLIA [id number] [place] [address] [place]#### 12598-5 ####[facility] LABORATORYCLIA [id number] [address] [place] Immature granulocytes (Bld) [#/Vol] 0.13 10*3/uL High <0.10 [facility] Comment on above: Order Comment: Speci men Type: BLOOD SPECIMENOrdering Facility: [facility] Address: [address] [place] [address] Performed By: #### 5 5454-3 ####[facility] LABCLIA [id number] [place] [address] [place]#### 24324-2 ####[facility] LABORATORYCLIA [id number] [address] Immature granulocytes/100 WBC (Bld) 0.7 % Normal [facility] Comment on above: Order Comment: Speci men Type: BLOOD SPECIMENOrdering Facility: [facility] Address: [address] [place] [address] Performed By: #### 5 5454-3 ####[facility] LABCLIA [id number] [address] [place]#### 88200-4 ####[facility] LABORATORYCLIA [id number] [place] [address] [place] Lymphocytes (Bld) [#/Vol] 0.76 10*3/uL Low 1.00-4.00 [facility] Comment on above: Order Comment: Speci men Type: BLOOD SPECIMENOrdering Facility: [facility] Address: [address] [place] [address] Performed By: #### 5 5454-3 ####[facility] LABCLIA [id number] [address] [place]#### 57375-1 ####[facility] LABORATORYCLIA [id number] [address] [place] [facility] Lymphocytes/100 WBC (Bld) 3.8 % Normal [facility] Comment on above: Order Comment: Speci men Type: BLOOD SPECIMENOrdering Facility: [facility] Address: [address] [place] [address] Performed By: #### 5 5454-3 ####[facility] LABCLIA [id number] [place] [address] [place]#### 91584-1 ####[facility] LABORATORYCLIA [id number] [place] [address] [place] MCH (RBC) [Entitic mass] 28.5 pg Normal 26.0-34.0 [facility] Comment on above: Order Comment: Speci men Type: BLOOD SPECIMENOrdering Facility: [facility] Address: [address] [place] [address] Performed By: #### 5 5454-3 ####[facility] LABCLIA [id number] [place] [address] [place]#### 30488-0 ####[facility] LABORATORYCLIA [id number] [place] [address] [place] MCHC (RBC) [Mass/Vol] 33.7 g/dL Normal 30.5-36.0 [facility] Comment on above: Order Comment: Speci men Type: BLOOD SPECIMENOrdering Facility: [facility] Address: [address] [place] [address] Performed By: #### 5 5454-3 ####[facility] LABCLIA [id number] [place] [address] [place]#### 90442-3 ####[facility]ORATORYCLIA [id number] [place] [address] [place] MCV (RBC) [Entitic vol] 84.3 fL Normal 80.0-100.0 [facility] Comment on above: Order Comment: Speci men Type: BLOOD SPECIMENOrdering Facility: [facility] Address: [address] [place] [address] Performed By: #### 5 5454-3 ####[facility] LABCLIA [id number] [place] [address] [place]#### 84989-0 ####[facility]ORATORYCLIA [id number] [place] [address] [place] Monocytes (Bld) [#/Vol] 0.94 10*3/uL High <0.87 [facility] Comment on above: Order Comment: Speci men Type: BLOOD SPECIMENOrdering Facility: [facility] Address: [address] [place] [address] Performed By: #### 5 5454-3 ####[facility] LABCLIA [id number] [place] [address] [place]#### 86661-8 ####[facility] LABORATORYCLIA [id number] [address] Monocytes/100 WBC (Bld) 4.7 % Normal [facility] Comment on above: Order Comment: Speci men Type: BLOOD SPECIMENOrdering Facility: [facility] Address: [address] [place] [address] Performed By: #### 5 5454-3 ####[facility] LABCLIA [id number] [place] [address] [place]#### 34526-3 ####[facility] LABORATORYCLIA [id number] [address] [place] Neutrophils (Bld) [#/Vol] 17.99 10*3/uL High 1.45-7.50 [facility] Comment on above: Order Comment: Speci men Type: BLOOD SPECIMENOrdering Facility: [facility] Address: [address] [place] [address] Performed By: #### 5 5454-3 ####[facility] LABCLIA [id number] [place] [address] [place]#### 91806-5 ####[facility] LABORATORYCLIA [id number] [address] Neutrophils/100 WBC (Bld) 90.6 % Normal [facility] Comment on above: Order Comment: Speci men Type: BLOOD SPECIMENOrdering Facility: [facility] Address: [address] [place] [address] Performed By: #### 5 5454-3 ####[facility] LABCLIA [id number] [place] [address] [place]#### 59231-9 ####[facility] LABORATORYCLIA [id number] [place] [address] [place] Nucleated RBC (Bld) [#/Vol] 10*3/uL Normal <0.01 [facility] Comment on above: Order Comment: Speci men Type: BLOOD SPECIMENOrdering Facility: [facility] Address: [address] [place] [address] Performed By: #### 5 5454-3 ####[facility] LABCLIA [id number] [place] [address] [place]#### 70267-1 ####[facility]ORATORYCLIA [id number] [place] [address] [place] Nucleated RBC/100 WBC (Bld) [Ratio] 0.0 /100 WBC Normal [facility] Comment on above: Order Comment: Speci men Type: BLOOD SPECIMENOrdering Facility: [facility] Address: [address] [place] [address] Performed By: #### 5 5454-3 ####[facility] LABCLIA [id number] [place] [address] [place]#### 83463-8 ####[facility] LABORATORYCLIA [id number] [place] [address] [place] Platelet mean volume (Bld) [Entitic vol] 9.0 fL Normal 9.0-12.7 [facility] Comment on above: Order Comment: Speci men Type: BLOOD SPECIMENOrdering Facility: [facility] Address: [address] [place] [address] Performed By: #### 5 5454-3 ####[facility] LABCLIA [id number] [place] [address] [place]#### 81722-0 ####[facility] LABORATORYCLIA [id number] [place] [address] [place] Platelets (Bld) [#/Vol] 326 10*3/uL Normal 150-400 [facility] Comment on above: Order Comment: Speci men Type: BLOOD SPECIMENOrdering Facility: [facility] Address: [address] [place] [address] Performed By: #### 5 5454-3 ####[facility] LABCLIA [id number] [place] [address] [place]#### 12767-5 ####[facility] LABORATORYCLIA [id number] [place] [address] [place] RBC (Bld) [#/Vol] 3.83 10*6/uL Low 3.90-5.20 [facility] Comment on above: Order Comment: Speci men Type: BLOOD SPECIMENOrdering Facility: [facility] Address: [address] [place] [address] Performed By: #### 5 5454-3 ####[facility] LABCLIA [id number] [place] [address] [place]#### 14639-2 ####[facility] LABORATORYCLIA [id number] [address] STATES [facility] WBC (Bld) [#/Vol] 19.86 10*3/uL High 3.70-11.[address] [facility] Comment on above: Order Comment: Speci men Type: BLOOD SPECIMENOrdering Facility: [facility] Address: [address] [place] [address] Performed By: #### 5 5454-3 ####[facility] LABCLIA [id number] [address] [place]#### 22893-8 ####[facility] LABORATORYCLIA [id number] [address] [place] CRP SerPl-ncon 11-21-2024 CRP [Mass/Vol] 3.8 mg/dL High <0.9 [facility] Comment on above: Order Comment: Speci men Type: BLOOD SPECIMENOrdering Facility: [facility] Address: [address] [place] [address] Performed By: #### 2 4323-8, 50427-6, 1988-5, 94797-7 ####[facility] LABORATORYCLIA [id number] [place] [address] [place] Comprehensive metabolic 2000 panelon 11-21-2024 Albumin [Mass/Vol] 3.7 g/dL Low 3.9-4.9 [facility] Comment on above: Order Comment: Speci men Type: BLOOD SPECIMENOrdering Facility: [facility] Address: [address] [place] [address] Performed By: #### 2 4323-8, 30281-9, 1988-03, ####[facility] LABORATORYCLIA [id number] [address] [place] ALP [Catalytic activity/Vol] 90 U/L Normal 34-123 [facility] Comment on above: Order Comment: Speci men Type: BLOOD SPECIMENOrdering Facility: [facility] Address: [address] [place] [address] [place] [address] Performed By: #### 2 4323-8, 81157-1, 1988-03, ####[facility] LABORATORYCLIA [id number] [address] ALT [Catalytic activity/Vol] 10 U/L Normal 7-38 [facility] Comment on above: Order Comment: Speci men Type: BLOOD SPECIMENOrdering Facility: [facility] Address: [facility] [place] [address] Performed By: #### 2 4323-8, 13565-7, 1988-03, ####[facility] LABORATORYCLIA [id number] [address] Anion gap [Moles/Vol] 13 mmol/L Normal 8-15 [facility] Comment on above: Order Comment: Speci men Type: BLOOD SPECIMENOrdering Facility: [facility] Address: [address] [place] [address] Performed By: #### 2 4323-8, 84478-5, 1988-03, ####[facility] LABORATORYCLIA [id number] [address] AST [Catalytic activity/Vol] 14 U/L Normal 13-35 [facility] Comment on above: Order Comment: Speci men Type: BLOOD SPECIMENOrdering Facility: [facility] Address: [address] [place] [address] [place] [address] Performed By: #### 2 4323-8, 91520-4, 1988-03, ####[facility] LABORATORYCLIA [id number] [place] [address] [place] Bilirubin [Mass/Vol] 0.2 mg/dL Normal 0.2-1.[address] [facility] Comment on above: Order Comment: Speci men Type: BLOOD SPECIMENOrdering Facility: [facility] Address: [facility] [place] [address] Performed By: #### 2 4323-8, 65523-1, 1988-03, ####[facility] LABORATORYCLIA [id number] [place] [address] [place] Calcium [Mass/Vol] 9.3 mg/dL Normal 8.5-10.2 [facility] Comment on above: Order Comment: Speci men Type: BLOOD SPECIMENOrdering Facility: [facility] Address: [address] [place] [address] [place] [address] Performed By: #### 2 4323-8, 13621-5, 1988-03, ####[facility] LABORATORYCLIA [id number] [place] [address] [place] Chloride [Moles/Vol] 96 mmol/L Low 98-[address] [facility] Comment on above: Order Comment: Speci men Type: BLOOD SPECIMENOrdering Facility: [facility] Address: [facility] [place] [address] Performed By: #### 2 4323-8, , 1988-03, ####[facility] LABORATORYCLIA [id number] [place] [address] [place] CO2 [Moles/Vol] 25 mmol/L Normal 22-30 [facility] Comment on above: Order Comment: Speci men Type: BLOOD SPECIMENOrdering Facility: [facility] Address: [facility] [place] [address] Performed By: #### 2 4323-8, 89255-4, 1988-03, ####[facility] LABORATORYCLIA [id number] [place] [address] [place] Creatinine [Mass/Vol] 1.02 mg/dL High 0.58-0.96 [facility] Comment on above: Order Comment: Fan meade Type: BLOOD SPECIMENOrdering Facility: [facility] Address: [address] [place] [address] Performed By: #### 2 4323-8, 68591-9, 1988-03, ####[facility] LABORATORYCLIA [id number] [address] Creatinine and Glomerular filtration rate.predicted panel (S/P/Bld) 53 mL/min/1.73m??? Low >=60 [facility] Comment on above: Order Comment: Fan meade Type: BLOOD SPECIMENOrdering Facility: [facility] Address: [address] [place] [address] Result Comment: Hilda mated Glomerular Filtration Rate (eGFR) is calculated using the 2020 CKD-EPI creatinine equation. This equation utilizes serum creatinine, sex, and age as parameters. The creatinine assay has traceable calibration to isotope dilution-mass spectrometry. Refer to KDIGO guidelines for clinical interpretation. In patients with unstable renal function, e.g. those with acute kidney injury, the eGFR may not accurately reflect actual GFR. Performed By: #### 2 4323-8, 22759-9, 1988-03, ####[facility] LABORATORYCLIA [id number] [address] STATES OF [facility] Glucose [Mass/Vol] 314 mg/dL High 74-99 [facility] Comment on above: Order Comment: Fan meade Type: BLOOD SPECIMENOrdering Facility: [facility] Address: [address] [place] [address] Result Comment: The [place] Diabetes Association (ADA) provides guidance for cutoff values for fasting glucose and random glucose. The ADA defines fasting as no caloric intake for at least 8 hours. Fasting plasma glucose results between 100 to 125 mg/dL indicate increased risk for diabetes (prediabetes).Fasting plasma glucose results greater than or equal to 126 mg/dL meet the criteria for diagnosis of diabetes. In the absence of unequivocal hyperglycemia, results should be confirmed by repeat testing. In a patient with classic symptoms of hyperglycemia or hyperglycemic crisis, random plasma glucose results greater than or equal to 200 mg/dL meet the criteria for diagnosis of diabetes.Reference: Standards of Medical Care in Diabetes 2016, [place] Diabetes Association. Diabetes Care. 2016.39(Suppl 1). Performed By: #### 2 4323-8, 83870-1, 1988-03, ####[facility] LABORATORYCLIA [id number] [place] [address] [place] Potassium [Moles/Vol] 4.7 mmol/L Normal 3.7-5.1 [facility] Comment on above: Order Comment: Speci men Type: BLOOD SPECIMENOrdering Facility: [facility] Address: [address] [place] [address] Performed By: #### 2 4323-8, 47808-7, 1988-03, ####[facility] LABORATORYCLIA [id number] [place] [address] [place] Protein [Mass/Vol] 6.4 g/dL Normal 6.3-8.0 [facility] Comment on above: Order Comment: Speci men Type: BLOOD SPECIMENOrdering Facility: [facility] Address: [address] [place], [place] [address] Performed By: #### 2 4323-8, 97834-2, 1988-03, ####V[facility] LABORATORYCLIA [id number] [place] [address] [place] Sodium [Moles/Vol] 134 mmol/L Low 136-144 [facility] Comment on above: Order Comment: Speci men Type: BLOOD SPECIMENOrdering Facility: [facility] Address: [address] [place] [address] Performed By: #### 2 4323-8, 89847-3, 1988-03, ####V[facility] LABORATORYCLIA [id number] [place] [address] [place] Urea nitrogen [Mass/Vol] 37 mg/dL High 7-21 [facility] Comment on above: Order Comment: Speci men Type: BLOOD SPECIMENOrdering Facility: [facility] Address: [address] [place] [address] Performed By: #### 2 4323-8, 67911-0, 1988-5, 44535-2 ####[facility] LABORATORYCLIA [id number] [place] [address] [place] [facility] ED PROV NOTEon 11-21-2024 ED PROV NOTE Normal [facility] ED Triage Noteon 11-21-2024 ED Triage Note Normal [facility] HbA1c (Bld)on 11-21-2024 Average glucose Estimated from glycated hemoglobin (Bld) [Mass/Vol] 252 mg/dL Normal [facility] Comment on above: Order Comment: Speci men Type: BLOOD SPECIMENOrdering Facility: [facility] Address: [address] [place] [address] Result Comment: eAG: (Estimated average glucose) is a calculated value from HgbA1c and is retail wireless sales representative of the average blood glucose level in the last 2-3 month period. Performed By: #### 5 5454-3 ####[facility] LABCLIA [id number] [address]#### 72741-0 ####[facility] LAB[facility] [id number] [address] [facility] HbA1c (Bld) [Mass fraction] 10.4 % High 4.3-5.6 [facility] Comment on above: Order Comment: Fan meade Type: BLOOD SPECIMENOrdering Facility: [facility] Address: [address] [place] [address] Result Comment: [place] [place] [employer] guidelines indicate that patients with HgbA1c in the range 5.7-6.4% are at increased risk for development of diabetes, and intervention by lifestyle modification may be beneficial. HgbA1c greater or equal to 6.5% is considered diagnostic of diabetes. Performed By: #### 5 5454-3 ####[facility] LABCLIA [id number] [address] [place]#### [address]-7 ####[place] [facility]ORATORYCLIA [id number] [address] STATES [facility] NT-proBNP [facility] Natriuretic peptide.B prohormone N-Terminal [Mass/Vol] 1157 pg/mL High <450 [facility] Comment on above: Order Comment: Speci men Type: BLOOD SPECIMENOrdering Facility: [facility] Address: [address] [place] [address] Performed By: #### 2 4323-8, 85889-0, 1988-03, 35537-9 ####[place] [facility]ORATORYCLIA [id number] [place] [id number] [facility] [place] Procalcitonin SerPl-mCncon 0 11-21-2024 Procalcitonin [Mass/Vol] 0.14 ng/mL High <0.09 [facility] Comment on above: Order Comment: Speci men Type: BLOOD SPECIMENOrdering Facility: [facility] Address: [address] [place] [address] Result Comment: For a guided interpretation of test results, please visit the Change in Procalcitonin Calculator, [email or web address]. Performed By: #### 2 4323-8, 01867-9, 1988-03, ####[place] [facility]ORATORYCLIA [id number] [place] [id number] [place] SEPSIS LACTATE W/ REFLEX (IN ITIAL)on 11-21-2024 Lactate [Moles/Vol] 2.2 mmol/L High 0.5-2.0 [facility] Comment on above: Order Comment: Speci men Type: BLOOD SPECIMENOrdering Facility: [facility] Address: [address] [place] [address] Performed By: #### S LACTR ####[place] [facility]ORATORYCLIA [id number] [place] [address] [place] XR ANKLE 3V AP/LAT/OBL RTon 11-21-2024 XR ANKLE 3V AP/LAT/OBL RT Normal [facility] CBC W Auto Differential pane l (Bld)on 11-19-2024 Basophils (Bld) [#/Vol] 0.05 10*3/uL Normal <0.11 [facility] Comment on above: Order Comment: Speci men Type: BLOOD SPECIMENOrdering Facility: [facility] Address: [address] [place] [address] Performed By: #### 5 7021-8 ####[facility] LABCLIA [id number] [place] [address] [place] Basophils/100 WBC (Bld) 0.5 % Normal C [facility] Comment on above: Order Comment: Speci men Type: BLOOD SPECIMENOrdering Facility: [facility] Address: [address] [place] [address] Performed By: #### 5 7021-8 ####[facility] LABCLIA [id number] [place] [address] [place] Differential cell count method Nom (Bld) Auto Normal [facility] Comment on above: Order Comment: Speci men Type: BLOOD SPECIMENOrdering Facility: [facility] Address: [address] [place] [address] Performed By: #### 5 7021-8 ####[facility] LABCLIA [id number] [place] [address] [place] Eosinophils (Bld) [#/Vol] 0.12 10*3/uL Normal <0.46 [facility] Comment on above: Order Comment: Speci men Type: BLOOD SPECIMENOrdering Facility: [facility] Address: [address] [place] [address] Performed By: #### 5 7021-8 ####[facility] LABCLIA [id number] [place] [address] [place] Eosinophils/100 WBC (Bld) 1.3 % Normal [facility] Comment on above: Order Comment: Speci men Type: BLOOD SPECIMENOrdering Facility: [facility] Address: [address] [place] [address] Performed By: #### 5 7021-8 ####[facility] LABCLIA [id number] [place] [address] [place] Erythrocyte distribution width (RBC) [Ratio] 14.8 % Normal 11.5-15.0 [facility] Comment on above: Order Comment: Speci men Type: BLOOD SPECIMENOrdering Facility: [facility] Address: [address] [place] [address] Performed By: #### 5 7021-8 ####[facility] LABIA [id number] [place] [address] [place] Hematocrit (Bld) [Volume fraction] 35.8 % Low 36.0-46.0 [facility] Comment on above: Order Comment: Speci men Type: BLOOD SPECIMENOrdering Facility: [facility] Address: [address] [place] [address] Performed By: #### 5 7021-8 ####[facility] LABIA [id number] [place] [address] [place] Hemoglobin (Bld) [Mass/Vol] 11.5 g/dL Normal 11.5-15.5 [facility] Comment on above: Order Comment: Speci men Type: BLOOD SPECIMENOrdering Facility: [facility] Address: [address] [place] [address] Performed By: #### 5 7021-8 ####[facility] LABIA [id number] [place] [address] [place] Immature granulocytes (Bld) [#/Vol] 0.07 10*3/uL Normal <0.10 [facility] Comment on above: Order Comment: Speci men Type: BLOOD SPECIMENOrdering Facility: [facility] Address: [address] [place] [address] Performed By: #### 5 7021-8 ####[facility] LABIA [id number] [place] [address] [place] Immature granulocytes/100 WBC (Bld) 0.7 % Normal [facility] Comment on above: Order Comment: Speci men Type: BLOOD SPECIMENOrdering Facility: [facility] Address: [address] [place] [address] Performed By: #### 5 7021-8 ####[facility] LABCLIA [id number] [place] [address] [place] Lymphocytes (Bld) [#/Vol] 1.19 10*3/uL Normal 1.00-4.00 [facility] Comment on above: Order Comment: Speci men Type: BLOOD SPECIMENOrdering Facility: [facility] Address: [address] [place] [address] Performed By: #### 5 7021-8 ####[facility] LABCLIA [id number] [place] [address] [place] Lymphocytes/100 WBC (Bld) 12.7 % Normal [facility] Comment on above: Order Comment: Speci men Type: BLOOD SPECIMENOrdering Facility: [facility] Address: [address] [place] [address] Performed By: #### 5 7021-8 ####[facility] LABCLIA [id number] [place] [address] [place] MCH (RBC) [Entitic mass] 28.0 pg Normal 26.0-34.0 [facility] Comment on above: Order Comment: Speci men Type: BLOOD SPECIMENOrdering Facility: [facility] Address: [address] [place] [address] Performed By: #### 5 7021-8 ####[facility] LABCLIA [id number] [place] [address] [place] MCHC (RBC) [Mass/Vol] 32.1 g/dL Normal 30.5-36.0 [facility] Comment on above: Order Comment: Speci men Type: BLOOD SPECIMENOrdering Facility: [facility] Address: [address] [place] [address] Performed By: #### 5 7021-8 ####[facility] LABCLIA [id number] [place] [address] [place] MCV (RBC) [Entitic vol] 87.1 fL Normal 80.0-100.0 C [facility] Comment on above: Order Comment: Speci men Type: BLOOD SPECIMENOrdering Facility: [facility] Address: [address] [place] [address] Performed By: #### 5 7021-8 ####[facility] LABCLIA [id number] [place] [address] [place] Monocytes (Bld) [#/Vol] 0.67 10*3/uL Normal <0.87 [facility] Comment on above: Order Comment: Speci men Type: BLOOD SPECIMENOrdering Facility: [facility] Address: [address] [place] [address] Performed By: #### 5 7021-8 ####[facility] LABCLIA [id number] [place] [address] [place] Monocytes/100 WBC (Bld) 7.1 % Normal C [facility] Comment on above: Order Comment: Speci men Type: BLOOD SPECIMENOrdering Facility: [facility] Address: [address] [place] [address] Performed By: #### 5 7021-8 ####[facility] LABCLIA [id number] [place] [address] [place] Neutrophils (Bld) [#/Vol] 7.29 10*3/uL Normal 1.45-7.50 [facility] Comment on above: Order Comment: Speci men Type: BLOOD SPECIMENOrdering Facility: [facility] Address: [address] [place] [address] Performed By: #### 5 7021-8 ####[facility] LABCLIA [id number] [place] [address] [place] Neutrophils/100 WBC (Bld) 77.7 % Normal [facility] Comment on above: Order Comment: Speci men Type: BLOOD SPECIMENOrdering Facility: [facility] Address: [address] [place] [address] Performed By: #### 5 7021-8 ####[facility] LABCLIA [id number] [place] [address] [place] Nucleated RBC (Bld) [#/Vol] 10*3/uL Normal <0.01 [facility] Comment on above: Order Comment: Speci men Type: BLOOD SPECIMENOrdering Facility: [facility] Address: [address] [place] [address] Performed By: #### 5 7021-8 ####[facility] LABCLIA [id number] [place] [address] [place] Nucleated RBC/100 WBC (Bld) [Ratio] 0.0 /100 WBC Normal [facility] Comment on above: Order Comment: Speci men Type: BLOOD SPECIMENOrdering Facility: [facility] Address: [address] [place] [address] Performed By: #### 5 7021-8 ####[facility] LABCLIA [id number] [place] [address] [place] Platelet mean volume (Bld) [Entitic vol] 9.6 fL Normal 9.0-12.7 [facility] Comment on above: Order Comment: Speci men Type: BLOOD SPECIMENOrdering Facility: [facility] Address: [address] [place] [address] Performed By: #### 5 7021-8 ####[facility] LABCLIA [id number] [place] [address] [place] Platelets (Bld) [#/Vol] 405 10*3/uL High 150-400 [facility] Comment on above: Order Comment: Speci men Type: BLOOD SPECIMENOrdering Facility: [facility] Address: [address] [place] [address] Performed By: #### 5 7021-8 ####[facility] LABCLIA [id number] [place] [address] [place] RBC (Bld) [#/Vol] 4.11 10*6/uL Normal 3.90-5.20 [facility] Comment on above: Order Comment: Speci men Type: BLOOD SPECIMENOrdering Facility: [facility] Address: [address] [place] [address] Performed By: #### 5 7021-8 ####[facility] [id number] [place] [address] [place] WBC (Bld) [#/Vol] 9.39 10*3/uL Normal 3.70-11.00 [facility] Comment on above: Order Comment: Speci men Type: BLOOD SPECIMENOrdering Facility: [facility] Address: [address] [place] [address] Performed By: #### 5 7021-8 ####[facility] [id number] [place] [address] [place] Ferritin SerPl-mCncon 2024 Ferritin [Mass/Vol] 39.6 ng/mL Normal 14.7-205.1 [facility] Comment on above: Order Comment: Speci men Type: BLOOD SPECIMENOrdering Facility: [facility] Address: [address] [place] [address] Performed By: #### 5 0190-8, 2276-4 ####[facility] [id number] [place] [address] [place] Iron and Iron binding capaci ty panelon 11-19-2024 Iron [Mass/Vol] 65 ug/dL Normal 41-186 [facility] Comment on above: Order Comment: Speci men Type: BLOOD SPECIMENOrdering Facility: [facility] Address: [address] [place] [address] Performed By: #### 5 0190-8, 2276-4 ####[facility] LABIA [id number] [place] [address] [place] Iron binding capacity [Mass/Vol] 392 ug/dL High 232-386 [facility] Comment on above: Order Comment: Speci men Type: BLOOD SPECIMENOrdering Facility: [facility] Address: [address] [place] [address] Performed By: #### 5 0190-8, 2276-4 ####[facility] LABCLIA [id number] [address] [place] Iron/TIBC [Molar ratio] 16.6 % Normal 15.0-57.0 C [facility] Comment on above: Order Comment: Speci men Type: BLOOD SPECIMENOrdering Facility: [facility] Address: [address] [place] [address] Performed By: #### 5 0190-8, 2276-4 ####[facility] LABCLIA [id number] [address] STATES OF [facility] MR Ankle - right WO contrast on 11-19-2024 IMPRESSION: Nonspecific circumferential subcutaneous/soft tissue edema involving the distal leg and ankle. Muscle fatty changes and edema which may be related to disuse. Moderate midfoot osteoarthritis. No evidence of inflammatory arthritis. Supervisor Wound: PHU Transcribe Date/Time: Nov 19 2024 10:47A Dictated by : CHANDNI ZIMMERMAN MD This examination was interpreted and the report reviewed and electronically signed by: LAZARO OHARA MD on Nov 19 2024 1:28PM [facility] * * *Final Report* * * DATE OF EXAM: Nov 19 2024 10:08AM [facility] 0164 - MRI ANKLE WO IVCON RT / PROCEDURE REASON: multiple diagnoses * * * * Physician Interpretation * * * * EXAMINATION: MRI ANKLE WO IVCON RT HISTORY: Chronic pain of right ankle, diffuse swelling predominantly lateral. Suspect inflammatory arthritic condition, positive RUBEN, elevated CRP and leukocytes. TECHNIQUE: Routine MRI of the right ankle/hindfoot without contrast COMPARISON: Right ankle radiograph 11/01/2024 RESULT: TENDONS Achilles tendon: Intact Posterior tibial tendon: Intact. Flexor digitorum longus tendon: Intact Flexor hallucis longus tendon: Intact Peroneal tendons: Intact Extensor tendons: Intact LIGAMENTS Lateral: Anterior talofibular ligament: Intact Calcaneofibular ligament: Intact Posterior talofibular ligament: Intact Medial: Deltoid ligament: Intact Spring ligament: Intact Syndesmosis: Anterior-inferior tibiofibular ligament: Intact Posterior tibiofibular ligament: Intact BONES AND JOINTS Joints/cartilage: Preserved talar dome. Midfoot osteoarthritis with joint space narrowing and subcortical cystic changes in the first-third TMT joints. No erosions. Bone Marrow: No fracture or suspicious marrow replacing lesions. Joint fluid: No sizable joint effusion or synovitis. OTHER Plantar fascia: Borderline thickening of the central cord plantar fascia. Sinus tarsi and tarsal tunnel: Within normal limits. Other: Nonspecific circumferential subcutaneous/soft tissue edema. Muscle fatty changes and edema, more prominent in the distal leg. Localizer images: No significant additional findings. DIVISION OF RADIOLOGY Provider, [facility] - 11/19/2024 * * *Final Report* * * DATE OF EXAM: Nov 19 2024 10:08AM M2M 0164 - MRI ANKLE WO IVCON RT / PROCEDURE REASON: multiple diagnoses * * * * Physician Interpretation * * * * EXAMINATION: MRI ANKLE WO IVCON RT HISTORY: Chronic pain of right ankle, diffuse swelling predominantly lateral. Suspect inflammatory arthritic condition, positive RUBEN, elevated CRP and leukocytes. TECHNIQUE: Routine MRI of the right ankle/hindfoot without contrast COMPARISON: Right ankle radiograph 11/01/2024 RESULT: TENDONS Achilles tendon: Intact Posterior tibial tendon: Intact. Flexor digitorum longus tendon: Intact Flexor hallucis longus tendon: Intact Peroneal tendons: Intact Extensor tendons: Intact LIGAMENTS Lateral: Anterior talofibular ligament: Intact Calcaneofibular ligament: Intact Posterior talofibular ligament: Intact Medial: Deltoid ligament: Intact Spring ligament: Intact Syndesmosis: Anterior-inferior tibiofibular ligament: Intact Posterior tibiofibular ligament: Intact BONES AND JOINTS Joints/cartilage: Preserved talar dome. Midfoot osteoarthritis with joint space narrowing and subcortical cystic changes in the first-third TMT joints. No erosions. Bone Marrow: No fracture or suspicious marrow replacing lesions. Joint fluid: No sizable joint effusion or synovitis. OTHER Plantar fascia: Borderline thickening of the central cord plantar fascia. Sinus tarsi and tarsal tunnel: Within normal limits. Other: Nonspecific circumferential subcutaneous/soft tissue edema. Muscle fatty changes and edema, more prominent in the distal leg. Localizer images: No significant additional findings. IMPRESSION IMPRESSION: Nonspecific circumferential subcutaneous/soft tissue edema involving the distal leg and ankle. Muscle fatty changes and edema which may be related to disuse. Moderate midfoot osteoarthritis. No evidence of inflammatory arthritis. Supervisor Wound: PHU Transcribe Date/Time: Nov 19 2024 10:47A Dictated by : CHANDNI ZIMMERMAN MD This examination was interpreted and the report reviewed and electronically signed by: LAZARO OHARA MD on Nov 19 2024 1:28PM EST [facility] Radiology Study observation (narrative) [facility] MR Ankle - right WO contrast Ordered By: [facility] Provider on 11-19-2024 [facility] MRI ANKLE WO IVCON RTon MRI ANKLE WO IVCON RT * * *Final Report* * * DATE OF EXAM: Nov 19 2024 10:08AM M2M 0164 - MRI ANKLE WO IVCON RT / PROCEDURE REASON: multiple diagnoses * * * * Physician Interpretation * * * * EXAMINATION: MRI ANKLE WO IVCON RT HISTORY: Chronic pain of right ankle, diffuse swelling predominantly lateral. Suspect inflammatory arthritic condition, positive RUBEN, elevated CRP and leukocytes. TECHNIQUE: Routine MRI of the right ankle/hindfoot without contrast COMPARISON: Right ankle radiograph 11/01/2024 RESULT: TENDONS Achilles tendon: Intact Posterior tibial tendon: Intact. Flexor digitorum longus tendon: Intact Flexor hallucis longus tendon: Intact Peroneal tendons: Intact Extensor tendons: Intact LIGAMENTS Lateral: Anterior talofibular ligament: Intact Calcaneofibular ligament: Intact Posterior talofibular ligament: Intact Medial: Deltoid ligament: Intact Spring ligament: Intact Syndesmosis: Anterior-inferior tibiofibular ligament: Intact Posterior tibiofibular ligament: Intact BONES AND JOINTS Joints/cartilage: Preserved talar dome. Midfoot osteoarthritis with joint space narrowing and subcortical cystic changes in the first-third TMT joints. No erosions. Bone Marrow: No fracture or suspicious marrow replacing lesions. Joint fluid: No sizable joint effusion or synovitis. OTHER Plantar fascia: Borderline thickening of the central cord plantar fascia. Sinus tarsi and tarsal tunnel: Within normal limits. Other: Nonspecific circumferential subcutaneous/soft tissue edema. Muscle fatty changes and edema, more prominent in the distal leg. Localizer images: No significant additional findings. IMPRESSION: Nonspecific circumferential subcutaneous/soft tissue edema involving the distal leg and ankle. Muscle fatty changes and edema which may be related to disuse. Moderate midfoot osteoarthritis. No evidence of inflammatory arthritis. Supervisor Wound: PHU Transcribe Date/Time: Nov 19 2024 10:47A Dictated by : CHANDNI ZIMMERMAN MD This examination was interpreted and the report reviewed and electronically signed by: LAZARO OHARA MD on Nov 19 2024 1:28PM EST [id number] Normal [facility] Zinc SerPl-mCncon 11-19-2024 Zinc [Mass/Vol] 55 ug/dL Low 60-120 [facility] Comment on above: Order Comment: Speci men Type: BLOOD SPECIMEN [facility] Address: [address] [place] [address] Result Comment: This test was developed, and its performance characteristics determined by the [facility] Department of Pathology and Laboratory Medicine. It has not been cleared or approved by the FDA. The [facility] Department of Pathology and Laboratory Medicine is regulated under CLIA as qualified to perform high-complexity testing. This test is used for clinical purposes. It should not be regarded as investigational or for research. Performed By: #### 2 276-4, 2132-9, 74457-5, 2284-8 #### [facility] CLIA [id number] [address] [place], [place] [address] [address] [place] CNPKelsie 11-06-2024 CNPN Telephone ([facility]) YUSUF MEDINA ([id number]) 1935 [address] [facility] Date Time Provider Department 11/06/24 WILLIE KAUR [facility] During your visit today, we recorded the following information about you: Willie Kaur APRN.CNP 11/06/2024 8:58 AM Signed Currently has Rheumatology scheduled 01/04/25. Are there any sooner appointments and would family be interested? She has been seeing Hematology and they think that her abnormal blood work may have a Rheumatology cause. Willie Kaur APRN.CNP Slava Sena 11/06/2024 9:16 AM Signed Patient took a sooner appt in November. Allergies As of Date: 11/06/2024 (No Known Allergies) Date Reviewed: 11/01/2024 Reviewed by: Evelia Love MA - Fully Assessed Reason for Visit: Appointment [186] Cmt: Rheumatology Prescriptions as of 12/11/2024 - metFORMIN (GLUCOPHAGE) 850 mg tablet TAKE 1 TABLET BY MOUTH TWICE DAILY WITH MEALS - meloxicam (MOBIC) 15 mg tablet TAKE 1 TABLET BY MOUTH ONCE DAILY NEEDED FOR PAIN. DO NOT COMBINE WITH DICLOFENAC GEL - traZODone (DESYREL) 50 mg tablet Take 1 tablet by mouth at bedtime as needed for sedation. - glipiZIDE (GLUCOTROL XL) 2.5 mg 24 hr tablet TAKE 1 TABLET BY MOUTH ONCE DAILY - lisinopril-hydroCHLORO thiazide (ZESTORETIC) 20-25 mg per tablet Take 1 tablet by mouth once daily. - pioglitazone (ACTOS) 45 mg tablet Take 1 tablet by mouth once daily. - pravastatin (PRAVACHOL) 20 mg tablet Take 1 tablet by mouth once daily. - lansoprazole (PREVACID) 30 mg capsule Take 1 capsule by mouth once daily. - amLODIPine (NORVASC) 5 mg tablet TAKE 1 TABLET BY MOUTH ONCE DAILY - diclofenac (VOLTAREN) 1 % topical gel Apply 2 g to affected area four times daily as needed. Facility-Administered Medications as of 12/11/2024 - polyethylene glycol 3350 34 g oral powder - colchicine 0.6 mg tab(s) - lisinopril 20 mg tab(s) (ZESTRIL) - predniSONE 20 mg tab(s) (DELTASONE) - meloxicam 15 mg tab(s) (MOBIC) - predniSONE (DELTASONE) tab(s) 15 mg - predniSONE 10 mg tab(s) (DELTASONE) - insulin lispro 8 Units injection (rapid acting) (ADMElog) - hydrOXYzine HCl 10 mg tab(s) (ATARAX) - insulin glargine 22 Units pen (long acting) - insulin lispro injection (rapid acting) (ADMElog) - amLODIPine 5 mg tab(s) (NORVASC) - enoxaparin 40 mg injection (LOVENOX) - traMADol 50 mg tab(s) (ULTRAM) - acetaminophen 1,000 mg tab(s) (TYLENOL) - polyethylene glycol 3350 34 g packet - pantoprazole DR 40 mg tab(s) (PROTONIX) - aluminum-magnesium hydroxide-simethicone 200-200-20 mg/5 mL 30 mL - lidocaine viscous 2 % 15 mL (XYLOCAINE) - ergocalciferol (vitamin D2) 50,000 Units cap(s) (DRISDOL) - lidocaine 4 % 1 Patch (SALONPAS) - lidocaine patch - REMOVE - lidocaine - VERIFY PATCH - insulin lispro injection (rapid acting) (ADMElog) - iv contrast (radiology procedure) - ceFAZolin iv piggyback 2 g in D5W (iso-osmotic) 100 mL (ANCEF) - senna-docusate 8.6-50 mg 1 tablet (SENNA-S) - dextrose 40 % 15 g - glucagon 1 mg injection - dextrose 10% iv bolus - NaCl 0.9% iv flush bag Meds Comments as of 03/30/2022: 03/30/22 The medications are managed by this patient by: CAREGIVER José Miguel Swanson [facility] Problem List As Of Date 11/06/2024 Noted Resolved Osteoarth NOS-other site [M19.90] 09/15/2011 BENIGN HYPERTENSION [I10] 12/01/2016 Diabetes mellitus without mention of complicati*04/10/2003 05/24/2011 Esophageal reflux [K21.9] 06/15/2006 Lumbago [M54.50] 05/31/2007 09/15/2011 Urgency of urination [R39.15] 10/12/2007 09/15/2011 Urge incontinence [N39.41] 10/12/2007 12/01/2016 Other functional disorder of bladder [N31.8] 10/12/2007 09/15/2011 Retention of urine, unspecified [R33.9] 10/12/2007 12/01/2016 Postmenopausal atrophic vaginitis [N95.2] 10/12/2007 05/11/2016 Urinary frequency [R35.0] 01/11/2008 09/15/2011 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] 04/18/2008 09/15/2011 Vertigo of central origin [H81.4] 01/08/2010 09/15/2011 Peripheral vertigo, unspecified [H81.399] 01/08/2010 09/15/2011 Diabetes Mellitus Type II, Uncontrolled; 1999 [*02/22/2010 12/01/2016 Degenerative arthritis of hip [M16.9] 10/31/2010 09/23/2014 Pain in joint, pelvic region and thigh [M25.559]10/31/2010 09/15/2011 Thoracic or lumbosacral neuritis or radiculitis*10/31/2010 09/15/2011 Lumbosacral spondylosis without myelopathy [M47*10/31/2010 09/15/2011 Degeneration of lumbar or lumbosacral intervert*10/31/2010 Osteoarth NOS-pelvis [M16.10] 11/16/2010 09/15/2011 Hyperlipidemia [E78.5] 02/19/2011 02/12/2014 Gait disturbance [R26.9] 05/20/2011 05/11/2016 Hip arthritis [M16.10] 05/20/2011 Diabetes mellitus type 2, controlled, without c*05/24/2011 05/11/2016 Renal dysfunction [N28.9] 03/07/2017 Varicose veins of lower extremities with other *09/27/2011 Osteoarthritis of ankle or foot, right [M19.071]10/19/2011 12/07/2017 Cervicalgia [M54.2] 07/17/2013 05/11/2016 (more content not included)... Normal [facility] Arti 11-05-2024 JACINTA Telephone (HEMAST) YUSUF MEDINA ([id number]) 1935 [address] [place] Date Time Provider Department 11/05/24 GRUPO MENDEZ During your visit today, we recorded the following information about you: Grupo Mendez MD 11/05/2024 6:55 PM Signed Patient has secondary leukocytosis in the setting of highly elevated sed rate, RUBEN 1:320 titer, positive [employer] Hematology work-up was essentially negative highlighting concern for rheumatological disease. Patient is leaving to [place] for 2 weeks I will schedule lab on 11/21/2024 and see her on 11/22/2024 at 9:10 AM for iron deficiency (this is separate issue). Renetta with care coordination will kindly help with arranging lab and follow-up as above. Patient and family aware of my plan. Grupo Mendez MD November 05, 2024 6:55 PM Allergies As of Date: 11/05/2024 (No Known Allergies) Date Reviewed: 11/01/2024 Reviewed by: Evelia Love MA - Fully Assessed Reason for Visit: Results [95] Primary Visit Diagnosis:Normocytic anemia [D64.9] Other Visit Diagnosis:Leukocytosis , unspecified type [D72.829] Order(s):COMPLETE BLOOD COUNT AND DIFFERENTIAL [SQCBCDIF] Order #: [id number] FUTURE IRON AND TIBC [SQIRON] Order #: [id number] FUTURE FERRITIN [SQFERR] Order #: [id number] FUTURE ZINC BLD [SQZINC] Order #: [id number] FUTURE Prescriptions as of 11/05/2024 - meloxicam (MOBIC) 15 mg tablet TAKE 1 TABLET BY MOUTH ONCE DAILY NEEDED FOR PAIN. DO NOT COMBINE WITH DICLOFENAC GEL - traZODone (DESYREL) 50 mg tablet Take 1 tablet by mouth at bedtime as needed for sedation. - blood sugar diagnostic (Giant SwarmTOUCH ULTRA TEST) test strip Test blood sugar once daily - glipiZIDE (GLUCOTROL XL) 2.5 mg 24 hr tablet TAKE 1 TABLET BY MOUTH ONCE DAILY - lisinopril-hydroCHLORO thiazide (ZESTORETIC) 20-25 mg per tablet Take 1 tablet by mouth once daily. - pioglitazone (ACTOS) 45 mg tablet Take 1 tablet by mouth once daily. - pravastatin (PRAVACHOL) 20 mg tablet Take 1 tablet by mouth once daily. - lansoprazole (PREVACID) 30 mg capsule Take 1 capsule by mouth once daily. - amLODIPine (NORVASC) 5 mg tablet TAKE 1 TABLET BY MOUTH ONCE DAILY - metFORMIN (GLUCOPHAGE) 850 mg tablet Take 1 tablet by mouth two times a day with meals. - diclofenac (VOLTAREN) 1 % topical gel Apply 2 g to affected area four times daily as needed. Meds Comments as of 03/30/2022: 03/30/22 The medications are managed by this patient by: CAREGIVER José Miguel Swanson [facility] Problem List As Of Date 11/05/2024 Noted Resolved Osteoarth NOS-other site [M19.90] 09/15/2011 BENIGN HYPERTENSION [I10] 12/01/2016 Diabetes mellitus without mention of complicati*04/10/2003 05/24/2011 Esophageal reflux [K21.9] 06/15/2006 Lumbago [M54.50] 05/31/2007 09/15/2011 Urgency of urination [R39.15] 10/12/2007 09/15/2011 Urge incontinence [N39.41] 10/12/2007 12/01/2016 Other functional disorder of bladder [N31.8] 10/12/2007 09/15/2011 Retention of urine, unspecified [R33.9] 10/12/2007 12/01/2016 Postmenopausal atrophic vaginitis [N95.2] 10/12/2007 05/11/2016 Urinary frequency [R35.0] 01/11/2008 09/15/2011 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] 04/18/2008 09/15/2011 Vertigo of central origin [H81.4] 01/08/2010 09/15/2011 Peripheral vertigo, unspecified [H81.399] 01/08/2010 09/15/2011 Diabetes Mellitus Type II, Uncontrolled; 1999 [*02/22/2010 12/01/2016 Degenerative arthritis of hip [M16.9] 10/31/2010 09/23/2014 Pain in joint, pelvic region and thigh [M25.559]10/31/2010 09/15/2011 Thoracic or lumbosacral neuritis or radiculitis*10/31/2010 09/15/2011 Lumbosacral spondylosis without myelopathy [M47*10/31/2010 09/15/2011 Degeneration of lumbar or lumbosacral intervert*10/31/2010 Osteoarth NOS-pelvis [M16.10] 11/16/2010 09/15/2011 Hyperlipidemia [E78.5] 02/19/2011 02/12/2014 Gait disturbance [R26.9] 05/20/2011 05/11/2016 Hip arthritis [M16.10] 05/20/2011 Diabetes mellitus type 2, controlled, without c*05/24/2011 05/11/2016 Renal dysfunction [N28.9] 03/07/2017 Varicose veins of lower extremities with other *09/27/2011 Osteoarthritis of ankle or foot, right [M19.071]10/19/2011 12/07/2017 Cervicalgia [M54.2] 07/17/2013 05/11/2016 Pain in joint, shoulder region [M25.519] 07/17/2013 09/23/2014 Dyslipidemia [E78.5] 02/12/2014 Shoulder arthritis [M19.019] 08/06/2014 Rotator cuff (capsule) sprain [S43.429A] 08/06/2014 03/07/2017 Lumbosacral radiculitis [M54.17] 02/21/2015 12/07/2017 Lumbar canal stenosis [M48.061] 02/21/2015 Intractable low back pain [M54.59] 08/25/2015 12/01/2016 Acute renal failure (ARF) (HCC) [N17.9] 08/24/2015 08/29/2015 Unable to ambulate [R26.2] 08/27/2015 05/11/2016 Constipation [K59.00] 08/28/2015 05/11/2016 Sacroiliitis (HCC) [M46.1] 10/28/2015 12/07/2017 Type 2 diabetes mellitus without complication (*03/12/2016 03/07/2017 CKD (chronic kidney disease) [N18.9] 05/11/2016 (more content not included)... Normal [facility] CNOVon 11-01-2024 CNOV Office Visit (OTMBHT ) YUSUF MEDINA ([id number]) 1935 [place][birth year] Date Time Provider Department 11/01/24 2:50 PM SIMONE KEVIN During your visit today, we recorded the following information about you: Simone Kevin MD 11/01/2024 2:19 PM Signed November 01, 2024 HPI: Yusuf Medina is following up for right ankle. Reports residual swelling and pain. Pain Descriptors: Duration: chronic Severity: moderate Quality: ache Location: foot and ankle Context: worse with activity and dependence Modifying Factors: improved with rest and elevation Supporting Subjective Information Below: Estimated body mass index is 20.67 kg/m? as calculated from the following: Height as of 03/07/23: 152.4 cm (5'). Weight as of 10/29/24: 48 kg (105 lb 13.1 oz). Past Medical History 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/25/2017 CKD (chronic kidney disease) 05/11/2016 Essential hypertension, benign Hyperlipidemia LDL goal < 100 02/12/2014 Intractable low back pain 08/25/2015 Osteoarthrosis, unspecified whether generalized or localized, other specified sites Left hip Plantar fasciitis 05/25/2017 Primary insomnia 05/25/2017 Renal dysfunction Type II or unspecified type diabetes mellitus without mention of complication, not stated as uncontrolled Surgical History: PAST SURGICAL HISTORY Procedure Laterality Date ARTHRP ACETBLR/PROX FEM PROSTC AGRFT/ALGRFT 11/14/2011 Hip replacement, total, L REMV CATARACT EXTRACAP,INSERT LENS Bilateral 2020 [facility] Family History: FAMILY HISTORY Problem Relation Age of Onset None Brother None Sister None Brother Medications: Current Outpatient Medications Medication Sig meloxicam (MOBIC) 15 mg tablet TAKE 1 TABLET BY MOUTH ONCE DAILY NEEDED FOR PAIN. DO NOT COMBINE WITH DICLOFENAC GEL traZODone (DESYREL) 50 mg tablet Take 1 tablet by mouth at bedtime as needed for sedation. blood sugar diagnostic (Giant SwarmTOUCH ULTRA TEST) test strip Test blood sugar once daily glipiZIDE (GLUCOTROL XL) 2.5 mg 24 hr tablet TAKE 1 TABLET BY MOUTH ONCE DAILY lisinopril-hydroCHLORO thiazide (ZESTORETIC) 20-25 mg per tablet Take 1 tablet by mouth once daily. pioglitazone (ACTOS) 45 mg tablet Take 1 tablet by mouth once daily. pravastatin (PRAVACHOL) 20 mg tablet Take 1 tablet by mouth once daily. lansoprazole (PREVACID) 30 mg capsule Take 1 capsule by mouth once daily. amLODIPine (NORVASC) 5 mg tablet TAKE 1 TABLET BY MOUTH ONCE DAILY metFORMIN (GLUCOPHAGE) 850 mg tablet Take 1 tablet by mouth two times a day with meals. diclofenac (VOLTAREN) 1 % topical gel Apply 2 g to affected area four times daily as needed. No current facility-administered medications for this visit. Allergies: Patient has no known allergies. Review Of Systems GENERAL:Negative for malaise, significant weight loss and fever HEENT:Negative for frequent or significant headaches, significant changes in vision or vision problems, significant ear problems or hearing loss, nasal discharge or nose bleeds and sore throat, difficulty swallowing, mouth lesions NECK:Negative for lumps, goiter, pain and significant neck swelling RESPIRATORY: Negative for cough, wheezing and shortness of breath CARDIOVASCULAR: Negative for chest pain, leg swelling and palpitations GASTROINTESTINAL: Negative for abdominal discomfort, blood in stools or black stools and change in bowel habits GENITOURINARY: Negative for dysuria, frequency and incontinence MUSCULOSKELETAL: Negative for joint pain or swelling, back pain, and muscle pain. NEUROLOGIC:Negative for focal numbness or weakness, headaches and dizziness. SKIN:Negative for lesions, rash, and itching. PSYCHIATRIC: Negative for sleep disturbance, mood disorder and recent psychosocial stressors. HEMATOLOGIC/LYMPHATIC/ IMMUNOLOGIC:Negative for prolonged bleeding, bruising easily, and swollen nodes. ENDOCRINE: Negative for cold or heat intolerance, polyuria, polydipsia and goiter. Physical Exam: Basic physical examination reveals the patient to be in no acute distress. The patient is alert and oriented x 3 Mood and affect are appropriate. Head is atraumatic, normocephalic. Neck ROM grossly intact. Mucous membranes are moist. Eyes, ears, and nose are normal in appearance. Hearing is grossly intact. Breathing is unlabored with grossly normal chest motion. Limited Upper Extremity Exam: Shoulders with grossly intact ROM and strength, no obvious deformity. Elbows with grossly intact ROM and strength, no obvious deformity. Hand and wrist with grossly intact ROM and strength, no obvious deformity. Focused orthopaedic examination reveals the following: Skin intact without lesions. Diffuse swelling about ankle, mostly lateral Imaging: XR with marked osteopenia, no acute findings. Assessment and Plan: Rig (more content not included)... Normal [facility] CRP SerPl-mCncon 11-01-2024 CRP [Mass/Vol] 0.3 mg/dL Normal <0.9 [facility] Comment on above: Order Comment: Fan meade Type: BLOOD SPECIMEN Ordering Facility: [facility] Address: [address] [place] [address] Performed By: #### 2 276-4, 21319, 19387-3, 8 #### [facility] CLIA [id number] [address] [place] [address] [place] ESR Westergren method (Bld) [Velocity]on 11-01-2024 ESR (Bld) [Velocity] 36 mm/h High 0-20 [facility] Comment on above: Order Comment: Fan meade Type: BLOOD SPECIMEN Ordering Facility: [facility] Address: [address] [place] [address] Performed By: #### 2 276-4, 21319, 08674-6, 8 #### [facility] CLIA [id number] [address] [place] [address] [place] XR ANKLE 3V AP/LAT/OBL RTon 11-01-2024 XR ANKLE 3V AP/LAT/OBL RT * * *Final Report* * * DATE OF EXAM: Nov 01 2024 2:16PM M2X 5297 - XR ANKLE 3V AP/LAT/OBL RT / PROCEDURE REASON: Right ankle swelling * * * * Physician Interpretation * * * * EXAMINATION / TECHNIQUE: XR ANKLE 3V AP/LAT/OBL RT, XR FOOT 3V AP/LAT/OBL RT PATIENT/TECHNOLOGIST PROVIDED HISTORY: RT Foot/Ankle Swelling CLINICAL INFORMATION ( PROVIDED BY ORDERING CLINICIAN) : Right ankle swelling COMPARISON: 09/17/2024 RESULT: No acute fracture or dislocation. Ankle mortise is congruent. Unchanged pes planus and mild to moderate first through fourth TMT joint osteoarthritis with dorsal osteophytes. Second and third toe hammertoe deformities. Diffuse osteopenia. No erosions. Posterior and plantar calcaneal enthesophytes. Nonspecific soft tissue swelling in the ankle and dorsal forefoot. Atherosclerotic vascular calcifications. IMPRESSION: Nonspecific soft tissue swelling in the ankle and dorsal forefoot. Unchanged pes planus and mild to moderate midfoot osteoarthritis. Supervisor Wound: Sidense Transcribe Date/Time: Nov 02 2024 11:17A Dictated by : SHARYN UMANA MD This examination was interpreted and the report reviewed and electronically signed by: SHARYN UMANA MD on Nov 02 2024 11:20AM EST [id number] [facility] XR FOOT 3V AP/LAT/OBL RTon 1 01-02-2024 XR FOOT 3V AP/LAT/OBL RT * * *Final Report* * * DATE OF EXAM: Nov 01 2024 2:21PM M2X 5337 - XR FOOT 3V AP/LAT/OBL RT / PROCEDURE REASON: Right ankle swelling * * * * Physician Interpretation * * * * EXAMINATION / TECHNIQUE: XR ANKLE 3V AP/LAT/OBL RT, XR FOOT 3V AP/LAT/OBL RT PATIENT/TECHNOLOGIST PROVIDED HISTORY: RT Foot/Ankle Swelling CLINICAL INFORMATION ( PROVIDED BY ORDERING CLINICIAN) : Right ankle swelling COMPARISON: 09/17/2024 RESULT: No acute fracture or dislocation. Ankle mortise is congruent. Unchanged pes planus and mild to moderate first through fourth TMT joint osteoarthritis with dorsal osteophytes. Second and third toe hammertoe deformities. Diffuse osteopenia. No erosions. Posterior and plantar calcaneal enthesophytes. Nonspecific soft tissue swelling in the ankle and dorsal forefoot. Atherosclerotic vascular calcifications. IMPRESSION: Nonspecific soft tissue swelling in the ankle and dorsal forefoot. Unchanged pes planus and mild to moderate midfoot osteoarthritis. Supervisor Wound: Sidense Transcribe Date/Time: Nov 02 2024 11:17A Dictated by : SHARYN UMANA MD This examination was interpreted and the report reviewed and electronically signed by: SHARYN UMANA MD on Nov 02 2024 11:20AM EST [id number] Normal [facility] CNOVon 10-29-2024 CNOV Office Visit ([facility] ) YUSUF MEDINA ([id number]) 1935 [address] [place] Date Time Provider Department 10/29/24 4:20 PM AB BENSON [facility] During your visit today, we recorded the following information about you: Temperature Pulse Blood pressure Weight 99.3 degrees 66/minute 159/72 48 kg Ab Benson MD 11/04/2024 7:29 PM Signed This note was created using KelBillet[employer]. Subjective Yusuf Medina is a 88 year old female About 6 weeks ago - she was taken to get fracture ruled out. Her foot was swollen at that time as well. No Xray at that time Per caregiver - that there is more pain now. No drainage. No brace for few days now. The history is provided by the patient and a caregiver. Review of Systems Constitutional: Negative for fever. Respiratory: Negative for cough and wheezing. Gastrointestinal: Negative for abdominal pain, diarrhea and nausea. Objective BP 159/72 Pulse 66 Temp 37.4 ?C (99.3 ?F) Wt 48 kg (105 lb 13.1 oz) SpO2 97% BMI 20.67 kg/m? Physical Exam Vitals reviewed. Constitutional: General: She is not in acute distress. Appearance: Normal appearance. HENT: Head: Normocephalic. Eyes: General: Right eye: No discharge. Left eye: No discharge. Pupils: Pupils are equal, round, and reactive to light. Cardiovascular: Rate and Rhythm: Normal rate and regular rhythm. Heart sounds: No murmur heard. No gallop. Pulmonary: Effort: Pulmonary effort is normal. No respiratory distress. Breath sounds: No stridor. No wheezing, rhonchi or rales. Abdominal: Palpations: Abdomen is soft. Musculoskeletal: Right lower leg: No edema. Left lower leg: No edema. Feet: Feet: Comments: No surrounding erythema No fluctuance. Neurological: Mental Status: She is alert. Psychiatric: Mood and Affect: Mood normal. Behavior: Behavior normal. Thought Content: Thought content normal. ASSESSMENT/PLAN: 1. Chronic pain of right ankle - ICD9: 719.47, 338.29, ICD10: M25.571, G89.29 No signs of cellulitis. Healing wound at the indicated location Advised to follow up with specialist. Patient and family voiced understanding. Ab Benson MD Referring Provider: SELF [200] Allergies As of Date: 10/29/2024 (No Known Allergies) Date Reviewed: 10/29/2024 Reviewed by: Martina Tucker MA - Fully Assessed Reason for Visit: infection on ankle [Other] Cmt: Right ankle looks infected Primary Visit Diagnosis:Chronic pain of right ankle [M25.571, G89.29] Prescriptions as of 11/04/2024 - meloxicam (MOBIC) 15 mg tablet TAKE 1 TABLET BY MOUTH ONCE DAILY NEEDED FOR PAIN. DO NOT COMBINE WITH DICLOFENAC GEL - traZODone (DESYREL) 50 mg tablet Take 1 tablet by mouth at bedtime as needed for sedation. - blood sugar diagnostic (newMentorUCH ULTRA TEST) test strip Test blood sugar once daily - glipiZIDE (GLUCOTROL XL) 2.5 mg 24 hr tablet TAKE 1 TABLET BY MOUTH ONCE DAILY - lisinopril-hydroCHLORO thiazide (ZESTORETIC) 20-25 mg per tablet Take 1 tablet by mouth once daily. - pioglitazone (ACTOS) 45 mg tablet Take 1 tablet by mouth once daily. - pravastatin (PRAVACHOL) 20 mg tablet Take 1 tablet by mouth once daily. - lansoprazole (PREVACID) 30 mg capsule Take 1 capsule by mouth once daily. - amLODIPine (NORVASC) 5 mg tablet TAKE 1 TABLET BY MOUTH ONCE DAILY - metFORMIN (GLUCOPHAGE) 850 mg tablet Take 1 tablet by mouth two times a day with meals. - diclofenac (VOLTAREN) 1 % topical gel Apply 2 g to affected area four times daily as needed. Meds Comments as of 03/30/2022: 03/30/22 The medications are managed by this patient by: CAREGIVER José Miguel Swanson [facility] Problem List As Of Date 10/29/2024 Noted Resolved Osteoarth NOS-other site [M19.90] 09/15/2011 BENIGN HYPERTENSION [I10] 12/01/2016 Diabetes mellitus without mention of complicati*04/10/2003 05/24/2011 Esophageal reflux [K21.9] 06/15/2006 Lumbago [M54.50] 05/31/2007 09/15/2011 Urgency of urination [R39.15] 10/12/2007 09/15/2011 Urge incontinence [N39.41] 10/12/2007 12/01/2016 Other functional disorder of bladder [N31.8] 10/12/2007 09/15/2011 Retention of urine, unspecified [R33.9] 10/12/2007 12/01/2016 Postmenopausal atrophic vaginitis [N95.2] 10/12/2007 05/11/2016 Urinary frequency [R35.0] 01/11/2008 09/15/2011 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 Normal [facility] CNOVon 09-20-2024 CNOV Office Visit ([facility] ) YUSUF MEDINA ([id number]) 1935 [address] [place] Date Time Provider Department 09/20/24 9:10 AM SIMONE KEVIN During your visit today, we recorded the following information about you: Simone Kevin MD 09/20/2024 9:33 AM Signed September 20, 2024 HPI: Yusuf Medina is a 88 yo female with right ankle swelling. Reports fall 2 months ago. Localizes pain to lateral ankle. Denies posterior heel pain. Pain Descriptors: Duration: 2 months Severity: moderate Quality: ache Location: foot, ankle Context: worse with activity and dependent position Modifying Factors: improved with rest and elevation Supporting Subjective Information Below: Estimated body mass index is 22.48 kg/m? as calculated from the following: Height as of 03/07/23: 152.4 cm (5'). Weight as of 09/17/24: 52.2 kg (115 lb 1.3 oz). Past Medical History 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/25/2017 CKD (chronic kidney disease) 05/11/2016 Essential hypertension, benign Hyperlipidemia LDL goal < 100 02/12/2014 Intractable low back pain 08/25/2015 Osteoarthrosis, unspecified whether generalized or localized, other specified sites Left hip Plantar fasciitis 05/25/2017 Primary insomnia 05/25/2017 Renal dysfunction Type II or unspecified type diabetes mellitus without mention of complication, not stated as uncontrolled Surgical History: PAST SURGICAL HISTORY Procedure Laterality Date ARTHRP ACETBLR/PROX FEM PROSTC AGRFT/ALGRFT 11/14/2011 Hip replacement, total, L REMV CATARACT EXTRACAP,INSERT LENS Bilateral 2020 [facility] Family History: FAMILY HISTORY Problem Relation Age of Onset None Brother None Sister None Brother Medications: Current Outpatient Medications Medication Sig traZODone (DESYREL) 50 mg tablet Take 1 tablet by mouth at bedtime as needed for sedation. blood sugar diagnostic (newMentorUCH ULTRA TEST) test strip Test blood sugar once daily glipiZIDE (GLUCOTROL XL) 2.5 mg 24 hr tablet TAKE 1 TABLET BY MOUTH ONCE DAILY lisinopril-hydroCHLORO thiazide (ZESTORETIC) 20-25 mg per tablet Take 1 tablet by mouth once daily. pioglitazone (ACTOS) 45 mg tablet Take 1 tablet by mouth once daily. pravastatin (PRAVACHOL) 20 mg tablet Take 1 tablet by mouth once daily. lansoprazole (PREVACID) 30 mg capsule Take 1 capsule by mouth once daily. amLODIPine (NORVASC) 5 mg tablet TAKE 1 TABLET BY MOUTH ONCE DAILY metFORMIN (GLUCOPHAGE) 850 mg tablet Take 1 tablet by mouth two times a day with meals. meloxicam (MOBIC) 15 mg tablet Take 1 tablet by mouth once daily as needed for pain. DO NOT COMBINE WITH DICLOFENAC GEL diclofenac (VOLTAREN) 1 % topical gel Apply 2 g to affected area four times daily as needed. No current facility-administered medications for this visit. Allergies: Patient has no known allergies. Review Of Systems GENERAL:Negative for malaise, significant weight loss and fever HEENT:Negative for frequent or significant headaches, significant changes in vision or vision problems, significant ear problems or hearing loss, nasal discharge or nose bleeds and sore throat, difficulty swallowing, mouth lesions NECK:Negative for lumps, goiter, pain and significant neck swelling RESPIRATORY: Negative for cough, wheezing and shortness of breath CARDIOVASCULAR: Negative for chest pain, leg swelling and palpitations GASTROINTESTINAL: Negative for abdominal discomfort, blood in stools or black stools and change in bowel habits GENITOURINARY: Negative for dysuria, frequency and incontinence MUSCULOSKELETAL: Negative for joint pain or swelling, back pain, and muscle pain. NEUROLOGIC:Negative for focal numbness or weakness, headaches and dizziness. SKIN:Negative for lesions, rash, and itching. PSYCHIATRIC: Negative for sleep disturbance, mood disorder and recent psychosocial stressors. HEMATOLOGIC/LYMPHATIC/ IMMUNOLOGIC:Negative for prolonged bleeding, bruising easily, and swollen nodes. ENDOCRINE: Negative for cold or heat intolerance, polyuria, polydipsia and goiter. Physical Exam: Basic physical examination reveals the patient to be in no acute distress. The patient is alert and oriented x 3 Mood and affect are appropriate. Head is atraumatic, normocephalic. Neck ROM grossly intact. Mucous membranes are moist. Eyes, ears, and nose are normal in appearance. Hearing is grossly intact. Breathing is unlabored with grossly normal chest motion. Limited Upper Extremity Exam: Shoulders with grossly intact ROM and strength, no obvious deformity. Elbows with grossly intact ROM and strength, no obvious deformity. Hand and wrist with grossly intact ROM and strength, no obvious deformity. Focused orthopaedic examination reveals the following: Skin intact without lesions. Mild swelling lateral malleolus TTP lateral malleolus NTTP (more content not included)... Normal [facility] BCR/ABL1 P210 AND P190 DIAGN OSTIC PCR BLOODon 09-19-2024 BCR/ABL1 P210 AND P190 DIAGNOSTIC PCR BLOOD RESULT BCR/ABL1 p210 and p190 Diagnostic PCR Laboratory Accession Number: [id number] Sample Type: Peripheral Blood Result: NOT DETECTED; negative for BCR/ABL1 p210 and p190 fusion transcripts. P190 NCN: N/A P210 MR: N/A %IS: N/A Interpretation: RT-PCR studies are negative for BCR/ABL1 p210 and p190 fusion transcripts. Very rare fusion transcripts, such as those involving exon 3 of ABL1 and alternate BCR fusion sites including the micro- breakpoint cluster region (p230 transcript), are not detected by this test. If clinical suspicion persists despite a negative test, the possibility of these very rare fusions can be further evaluated. In these cases, a bone marrow biopsy with cytogenetic karyotyping may be performed, followed by other more specific testing as clinically warranted and in consultation with the case hematopathologist and/or Molecular Pathology sign-out Staff. Limitations: This test detects the most common fusion transcripts, p210 (e13a2, e14a2) and p190 (e1a2, e1a3), which combined account for about 98-99 percent of BCR/ABL1 positive chronic myeloid leukemia and B-acute lymphoblastic leukemia/lymphoma cases. Other very rare fusion transcripts, such as those involving exon 3 of ABL1 and alternate BCR fusion sites including the micro-breakpoint cluster region (p230 transcript), are not detected by this test. Methodology: RNA was extracted from this sample, and cDNA prepared by reverse drying oven attendant. Real time PCR was performed in two separate reactions, using primers for e13a2 and/or e14a2 BCR/ABL1 fusion transcripts and ABL1 transcripts for p210 detection and primers for e1a2 BCR/ABL1 fusion transcripts and ABL1 transcripts for p190 detection (QuantideX BCR/ABL IS assay, [employer], [place], [place]). This assay has a limit of quantification and limit of detection of 0.002 percent IS or MR4.7 for p210 fusion transcripts, and a limit of quantification of 0.0036 percent (LR4.4) and limit of detection of 0.0025 percent (LR4.6) for p190 transcripts. Levels detected above or below the assays' limits of quantitation are resulted as DETECTED and quantitation indicated as greater than or less than the limits of quantitation for the IS percent, MR level and NCN, respectively. Disclaimer: This test was developed and its performance characteristics determined by [facility]'s Pathology and Laboratory Medicine Department. It has not been cleared or approved by the FDA. [facility]'s Pathology and Laboratory Medicine Department is regulated under CLIA as certified to perform high-complexity testing. This test is used for clinical purposes. It should not be regarded as investigational or for research. Testing and interpretation performed at [facility], [facility] [place] [address]. CLIA Number: [id number] As reviewed by José Miguel Persaud MD [facility] METHYLMALONIC ACIDon 024 Methylmalonate [Moles/Vol] 0.29 umol/L NINF - 0.40 umol/L [facility] Comment on above: This test was develo ped, and its performance characteristics determined by the [facility] Department of Pathology and Laboratory Medicine. It has not been cleared or approved by the FDA. The [facility] Department of Pathology and Laboratory Medicine is regulated under CLIA as qualified to perform high-complexity testing. This test is used for clinical purposes. It should not be regarded as investigational or for research. Methylmalonate [Moles/Vol]on 09-19-2024 Interpretation and review of laboratory results Normal [facility] XR CALCANEUS 2V AXIAL/LAT RT on 09-19-2024 XR CALCANEUS 2V AXIAL/LAT RT * * *Final Report* * * DATE OF EXAM: Sep 19 2024 2:13PM [facility] 5307 - XR CALCANEUS 2V AXIAL/LAT RT / PROCEDURE REASON: Pain in joint involving right ankle and foot * * * * Physician Interpretation * * * * EXAM: XR CALCANEUS 2V AXIAL/LAT RT HISTORY: Pain in joint involving right ankle and foot . RIGHT HEEL PAIN TECHNIQUE: XR CALCANEUS 2V AXIAL/LAT RT Laterality: RIGHT Number of different views (projections): 2 COMPARISON: None. RESULT: Bone mineralization is decreased without aggressive osseous lesion. Pes planus. Plantar and posterior calcaneal enthesophytes. No fracture or dislocation is present. Hammertoe deformities of the second toe and third toe. Vascular calcifications. IMPRESSION: Pes planus with calcaneal enthesophytes and bone demineralization. Supervisor Wound: [facility]U Transcribe Date/Time: Sep 21 2024 11:34A Dictated by : ALEJANDRA MONCADA MD This examination was interpreted and the report reviewed and electronically signed by: ALEJANDRA MONCADA MD on Sep 21 2024 11:39AM EST [id number] Normal [facility] XR FOOT 3V AP/LAT/OBL RTon 1 11-19-2023 XR FOOT 3V AP/LAT/OBL RT * * *Final Report* * * DATE OF EXAM: Sep 19 2024 2:13PM STX 5337 - XR FOOT 3V AP/LAT/OBL RT / PROCEDURE REASON: Pain in joint involving right ankle and foot * * * * Physician Interpretation * * * * EXAM: XR FOOT 3V AP/LAT/OBL RT HISTORY: Pain in joint involving right ankle and foot . RIGHT FOOT PAIN TECHNIQUE: XR FOOT 3V AP/LAT/OBL RT Laterality: RIGHT Number of different views (projections): 3 COMPARISON: None. RESULT: Bone mineralization is decreased without aggressive osseous lesion. No fracture or dislocation is present. Pes planus. Small posterior and plantar calcaneal enthesophytes. Splaying of the second and third toes. Narrowing of the first through fifth tarsometatarsal joints with mild subchondral sclerosis and osteophyte formation. Hammertoe deformity of the second and third digit. Soft tissue swelling of the dorsal forefoot. Scattered atherosclerotic vascular calcifications. IMPRESSION: 1. No acute osseous abnormality. 2. Pes planus with midfoot osteoarthritis. 3. Splaying of the second and third toes with hammertoe deformities. 4. Calcaneal enthesophytes. Supervisor Wound: [facility] Transcribe Date/Time: Sep 21 2024 11:40A Dictated by : ALEJANDRA MONCADA MD This examination was interpreted and the report reviewed and electronically signed by: ALEJANDRA MONCADA MD on Sep 21 2024 11:59AM EST [id number] Normal [facility] CCP ANTIBODY IGGOrdered By: Robin Zavala on 09-18-2024 Cyclic citrullinated peptide IgG Qn WILVERF [facility] CNPNon 09-18-2024 CNPN Telephone (HEMAST) YUSUF MEDINA ([id number]) 1935 [address] Date Time Provider Department 09/18/24 GRUPO MENDEZ During your visit today, we recorded the following information about you: Grupo Mendez MD 09/18/2024 9:19 PM Signed Results were reviewed. I spoke with [id number] Demetria about suspicion for calcaneal bone fracture. Orders Signed This Visit (1) CONSULT PANEL TO ORTHOPAEDICS STAT, Dx: 1. Right ankle swelling 2. Closed nondisplaced fracture of right calcaneus, unspecified portion of calcaneus, initial encounte Grupo Mendez MD September 18, 2024 9:19 PM Allergies As of Date: 09/18/2024 (No Known Allergies) Date Reviewed: 09/17/2024 Reviewed by: Grupo Mendez MD - Fully Assessed Reason for Visit: Results [95] Cmt: Suspicion for calcaneal bone fracture Primary Visit Diagnosis:Right ankle swelling [M25.471] Other Visit Diagnosis:Closed nondisplaced fracture of right calcaneus, unspecified portion of calcaneus, initial encounter [S92.001A] Order(s):CONSULT PANEL TO ORTHOPAEDICS [396081] Order #: [id number]: 1 FUTURE Prescriptions as of 09/18/2024 - traZODone (DESYREL) 50 mg tablet Take 1 tablet by mouth at bedtime as needed for sedation. - blood sugar diagnostic (G[employer] SwarmTOUCH ULTRA TEST) test strip Test blood sugar once daily - glipiZIDE (GLUCOTROL XL) 2.5 mg 24 hr tablet TAKE 1 TABLET BY MOUTH ONCE DAILY - lisinopril-hydroCHLORO thiazide (ZESTORETIC) 20-25 mg per tablet Take 1 tablet by mouth once daily. - pioglitazone (ACTOS) 45 mg tablet Take 1 tablet by mouth once daily. - pravastatin (PRAVACHOL) 20 mg tablet Take 1 tablet by mouth once daily. - lansoprazole (PREVACID) 30 mg capsule Take 1 capsule by mouth once daily. - amLODIPine (NORVASC) 5 mg tablet TAKE 1 TABLET BY MOUTH ONCE DAILY - metFORMIN (GLUCOPHAGE) 850 mg tablet Take 1 tablet by mouth two times a day with meals. - meloxicam (MOBIC) 15 mg tablet Take 1 tablet by mouth once daily as needed for pain. DO NOT COMBINE WITH DICLOFENAC GEL - diclofenac (VOLTAREN) 1 % topical gel Apply 2 g to affected area four times daily as needed. Meds Comments as of 03/30/2022: 03/30/22 The medications are managed by this patient by: CAREGIVER José Miguel Swanson [facility] Problem List As Of Date 09/18/2024 Noted Resolved Osteoarth NOS-other site [M19.90] 09/15/2011 BENIGN HYPERTENSION [I10] 12/01/2016 Diabetes mellitus without mention of complicati*04/10/2003 05/24/2011 Esophageal reflux [K21.9] 06/15/2006 Lumbago [M54.50] 05/31/2007 09/15/2011 Urgency of urination [R39.15] 10/12/2007 09/15/2011 Urge incontinence [N39.41] 10/12/2007 12/01/2016 Other functional disorder of bladder [N31.8] 10/12/2007 09/15/2011 Retention of urine, unspecified [R33.9] 10/12/2007 12/01/2016 Postmenopausal atrophic vaginitis [N95.2] 10/12/2007 05/11/2016 Urinary frequency [R35.0] 01/11/2008 09/15/2011 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] 04/18/2008 09/15/2011 Vertigo of central origin [H81.4] 01/08/2010 09/15/2011 Peripheral vertigo, unspecified [H81.399] 01/08/2010 09/15/2011 Diabetes Mellitus Type II, Uncontrolled; 1999 [*02/22/2010 12/01/2016 Degenerative arthritis of hip [M16.9] 10/31/2010 09/23/2014 Pain in joint, pelvic region and thigh [M25.559]10/31/2010 09/15/2011 Thoracic or lumbosacral neuritis or radiculitis*10/31/2010 09/15/2011 Lumbosacral spondylosis without myelopathy [M47*10/31/2010 09/15/2011 Degeneration of lumbar or lumbosacral intervert*10/31/2010 Osteoarth NOS-pelvis [M16.10] 11/16/2010 09/15/2011 Hyperlipidemia [E78.5] 02/19/2011 02/12/2014 Gait disturbance [R26.9] 05/20/2011 05/11/2016 Hip arthritis [M16.10] 05/20/2011 Diabetes mellitus type 2, controlled, without c*05/24/2011 05/11/2016 Renal dysfunction [N28.9] 03/07/2017 Varicose veins of lower extremities with other *09/27/2011 Osteoarthritis of ankle or foot, right [M19.071]10/19/2011 12/07/2017 Cervicalgia [M54.2] 07/17/2013 05/11/2016 Pain in joint, shoulder region [M25.519] 07/17/2013 09/23/2014 Dyslipidemia [E78.5] 02/12/2014 Shoulder arthritis [M19.019] 08/06/2014 Rotator cuff (capsule) sprain [S43.429A] 08/06/2014 03/07/2017 Lumbosacral radiculitis [M54.17] 02/21/2015 12/07/2017 Lumbar canal stenosis [M48.061] 02/21/2015 Intractable low back pain [M54.59] 08/25/2015 12/01/2016 Acute renal failure (ARF) (HCC) [N17.9] 08/24/2015 08/29/2015 Unable to ambulate [R26.2] 08/27/2015 05/11/2016 Constipation [K59.00] 08/28/2015 05/11/2016 Sacroiliitis (HCC) [M46.1] 10/28/2015 12/07/2017 Type 2 diabetes mellitus without complication (*03/12/2016 03/07/2017 CKD (chronic kidney disease) [N18.9] 05/11/2016 03/07/2017 Essential hypertension [I10] 12/01/2016 Hyperlipidemia associated with type 2 diabetes *03/07/2017 CKD stage 3 due to type 2 diabetes mellitus (HC*03/07/2017 Diabetes mellitus, non-insulin dependent (NIDDM*03/07 (more content not included)... Normal [facility] COPPER BLOODon 09-18-2024 Copper [Mass/Vol] 128 ug/dL 80 - 155 ug/dL [facility] Comment on above: This test was corina ped, and its performance characteristics determined by the [facility] Department of Pathology and Laboratory Medicine. It has not been cleared or approved by the FDA. The [facility] Department of Pathology and Laboratory Medicine is regulated under CLIA as qualified to perform high-complexity testing. This test is used for clinical purposes. It should not be regarded as investigational or for research. Interpretation and review of laboratory results Normal [facility] Cyclic citrullinated peptide IgG QnOrdered By: Robin Zavala on 09-18-2024 CCP Antibody IgG Qualitative Negative Negative [facility] Interpretation and review of laboratory results Normal [facility] This test is used as aid in diagnosis of Rheumatoid arthritis (RA). A negative result cannot rule out RA where clinically suspected. Clinical correlation is required. The following results were obtained with an [employer] QUANTA Lite CCP IgG JOE. Cyclic Citrullinated Peptide IgG values obtained with different manufacturers' assay methods may not be used interchangeably. The magnitude of the reported IgG levels cannot be correlated to an endpoint titer. [facility] FERRITINon 09-18-2024 Ferritin [Mass/Vol] 59.9 ng/mL 14.7 - 2 05.1 ng/mL [facility] FOLATE, SERUMon 09-18-2024 Folate [Mass/Vol] 18.8 ng/mL 4.7 - PINF ng/mL [facility] Ferritin [Mass/Vol]on 2023 Interpretation and review of laboratory results Normal [facility] HOMOCYSTEINEon 09-18-2024 Homocysteine [Moles/Vol] 21.2 umol/L High NINF - 15.1 umol/L [facility] Homocysteine [Moles/Vol]on 11-18-2023 Interpretation and review of laboratory results Abnormal [facility] Iron and Iron binding capaci ty panelon 09-18-2024 Interpretation and review of laboratory results Abnormal [facility] Iron [Mass/Vol] 29 ug/dL Low 41 - 186 ug/[facility] Iron binding capacity [Mass/Vol] 407 ug/dL High 232 - 386 ug/dL [facility] Iron/TIBC [Molar ratio] 7.1 % Low 15.0 - 57.0 % [facility] No Panel InformationOrdered By: Cheryl Sinha on 09-18-2024 [facility] No Panel Informationon 09-18 Interpretation and review of laboratory results Normal [facility] Nuclear Ab IA Ql (S)Ordered By: Lien Matson on 09-18-2024 RUBEN Scr Qual Positive Abnormal Negative [facility] Comment on above: The qualitative anti nuclear antibody screen test performed using the following antigens: dsDNA, Chromatin, Ribosomal P, SS-A 60, SS-A 52, SS-B, Sm, SmRNP, MARKET NEWS REPORTER A, MARKET NEWS REPORTER 68, Scl-70, Nadege-1, and Centromere B. Methodology: Multiplex flow immunoassay. Interpretation and review of laboratory results Abnormal [facility] URIC ACIDon 09-18-2024 Urate [Mass/Vol] 5.6 mg/dL 2.5 - 6.6 mg/dL [facility] US DVT LOWER RTon 09-18-2024 US DVT LOWER RT Normal [facility] US Lower extremity vein - [facility] 09-18-2024 IMPRESSION: Negative study for proximal DVT in the right lower extremity. Negative study for calf DVT in the right lower extremity. Negative study for superficial thrombophlebitis in the imaged segments of the right lower extremity. Supervisor Wound: PHU Transcribe Date/Time: Sep 18 2024 9:14A Dictated by : ZACH THOMPSON MD This examination was interpreted and the report reviewed and electronically signed by: ZACH THOMPSON MD on Sep 18 2024 9:20AM [facility] * * *Final Report* * * DATE OF EXAM: Sep 18 2024 8:44AM SHRUTHI 1007 - US DVT LOWER RT / PROCEDURE REASON: M25.471-Right ankle swelling * * * * Physician Interpretation * * * * EXAMINATION: RIGHT LOWER EXTREMITY DEEP VENOUS ULTRASOUND WITH DOPPLER IMAGING CLINICAL HISTORY: Ankle swelling TECHNIQUE: Grayscale with compression maneuvers, color Doppler and spectral Doppler imaging of the right proximal deep veins was performed. Grayscale with compression maneuvers of the peroneal and posterior tibial veins was performed. The right great and small saphenous veins were evaluated at their insertion to the deep system. The contralateral common femoral vein was imaged for comparison. Images were obtained and stored in a permanent archive and interpreted remotely. MQ: USLER_1 COMPARISON: None RESULT: RIGHT LOWER EXTREMITY PROXIMAL DEEP VEINS Distal External Iliac, Common Femoral and proximal Profunda Veins: Compression: Normal Doppler: Normal, spontaneous respirophasic flow. Normal response to augmentation. Femoral vein: Compression: Normal Doppler: Normal, spontaneous flow. Normal response to augmentation. Popliteal vein: Compression: Normal Doppler: Normal, spontaneous flow. Normal response to augmentation. CALF DEEP VEINS Peroneal veins: Normal compression. Posterior tibial veins: Normal compression. Gastrocnemius and Soleal veins: Not imaged. SUPERFICIAL VEINS Great saphenous: Patent and compressible at insertion into common femoral vein; not otherwise assessed. Small Saphenous: Patent and compressible in the proximal calf, not otherwise assessed. LEFT LOWER EXTREMITY (FOR COMPARISON) Common Femoral Vein: Compression: Normal Doppler: Normal, spontaneous respirophasic flow. Normal response to augmentation. [place] [facility] Provider, Kalyan [facility] - 09/18/2024 * * *Final Report* * * DATE OF EXAM: Sep 18 2024 8:44AM MDU 1007 - US DVT LOWER RT / PROCEDURE REASON: M25.471-Right ankle swelling * * * * Physician Interpretation * * * * EXAMINATION: RIGHT LOWER EXTREMITY DEEP VENOUS ULTRASOUND WITH DOPPLER IMAGING CLINICAL HISTORY: Ankle swelling TECHNIQUE: Grayscale with compression maneuvers, color Doppler and spectral Doppler imaging of the right proximal deep veins was performed. Grayscale with compression maneuvers of the peroneal and posterior tibial veins was performed. The right great and small saphenous veins were evaluated at their insertion to the deep system. The contralateral common femoral vein was imaged for comparison. Images were obtained and stored in a permanent archive and interpreted remotely. MQ: USLER_1 COMPARISON: None RESULT: RIGHT LOWER EXTREMITY PROXIMAL DEEP VEINS Distal External Iliac, Common Femoral and proximal Profunda Veins: Compression: Normal Doppler: Normal, spontaneous respirophasic flow. Normal response to augmentation. Femoral vein: Compression: Normal Doppler: Normal, spontaneous flow. Normal response to augmentation. Popliteal vein: Compression: Normal Doppler: Normal, spontaneous flow. Normal response to augmentation. CALF DEEP VEINS Peroneal veins: Normal compression. Posterior tibial veins: Normal compression. Gastrocnemius and Soleal veins: Not imaged. SUPERFICIAL VEINS Great saphenous: Patent and compressible at insertion into common femoral vein; not otherwise assessed. Small Saphenous: Patent and compressible in the proximal calf, not otherwise assessed. LEFT LOWER EXTREMITY (FOR COMPARISON) Common Femoral Vein: Compression: Normal Doppler: Normal, spontaneous respirophasic flow. Normal response to augmentation. IMPRESSION IMPRESSION: Negative study for proximal DVT in the right lower extremity. Negative study for calf DVT in the right lower extremity. Negative study for superficial thrombophlebitis in the imaged segments of the right lower extremity. Supervisor Wound[facility] Transcribe Date/Time: Sep 18 2024 9:14A Dictated by : ZACH THOMPSON MD This examination was interpreted and the report reviewed and electronically signed by: ZACH THOMPSON MD on Sep 18 2024 9:20AM [facility] Radiology Study observation (narrative) [facility] US Lower extremity vein - ri ghtOrdered By: Ccf Provider on 09-18-2024 [facility] Urate [Mass/Vol]on Interpretation and review of laboratory results Normal [facility] VITAMIN B12on 09-18-2024 Cobalamin (Vitamin B12) [Mass/Vol] 433 pg/mL 232 - 1245 pg/mL [facility] XR Ankle - right AP and Late ral and obliqueon 09-18-2024 IMPRESSION: Marked right ankle soft tissue swelling. Osteopenia and suspicion of nondisplaced calcaneus fracture. Degenerative changes, calcaneal enthesophytes, and pes planus. Supervisor Wound: [facility] Transcribe Date/Time: Sep 18 2024 12:20P Dictated by : GERTRUDIS MONCADA MD This examination was interpreted and the report reviewed and electronically signed by: GERTRUDIS MONCADA MD on Sep 18 2024 12:22PM [facility] * * *Final Report* * * DATE OF EXAM: Sep 17 2024 4:30PM STX 5297 - XR ANKLE 3V AP/LAT/OBL RT / PROCEDURE REASON: Right ankle swelling * * * * Physician Interpretation * * * * HISTORY: Right ankle swelling . right ankle swollen TECHNIQUE: XR ANKLE 3V AP/LAT/OBL RT Laterality: RIGHT Number of different views (projections): 3 COMPARISON: None RESULT: Generalized bone demineralization compatible with osteopenia. Linear lucency overlying the posterior-superior aspect of the calcaneus on lateral view suspicious for an acute nondisplaced fracture. No dislocation. Ankle mortise is congruent. Tibiotalar narrowing. Plantar calcaneal and Achilles tendon enthesophytes. Subtalar and midfoot joint space narrowing with osteophytes. Pes planus. Marked soft tissue swelling about the ankle. Atherosclerotic calcifications. DIVISION OF RADIOLOGY Provider, Kalyan Rowley - 09/18/2024 * * *Final Report* * * DATE OF EXAM: Sep 17 2024 4:30PM STX 5297 - XR ANKLE 3V AP/LAT/OBL RT / PROCEDURE REASON: Right ankle swelling * * * * Physician Interpretation * * * * HISTORY: Right ankle swelling . right ankle swollen TECHNIQUE: XR ANKLE 3V AP/LAT/OBL RT Laterality: RIGHT Number of different views (projections): 3 COMPARISON: None RESULT: Generalized bone demineralization compatible with osteopenia. Linear lucency overlying the posterior-superior aspect of the calcaneus on lateral view suspicious for an acute nondisplaced fracture. No dislocation. Ankle mortise is congruent. Tibiotalar narrowing. Plantar calcaneal and Achilles tendon enthesophytes. Subtalar and midfoot joint space narrowing with osteophytes. Pes planus. Marked soft tissue swelling about the ankle. Atherosclerotic calcifications. IMPRESSION IMPRESSION: Marked right ankle soft tissue swelling. Osteopenia and suspicion of nondisplaced calcaneus fracture. Degenerative changes, calcaneal enthesophytes, and pes planus. Supervisor Wound: [facility] Transcribe Date/Time: Sep 18 2024 12:20P Dictated by : GERTRUDIS MONCADA MD This examination was interpreted and the report reviewed and electronically signed by: GERTRUDIS MONCADA MD on Sep 18 2024 12:22PM EST [facility] XR Ankle - right AP and Late ral and obliqueOrdered By: Ccomar Provider on 09-18-2024 [facility] ZINC BLDOrdered By: Cheryl rodriguez on 09-18-2024 Zinc [Mass/Vol] 55 ug/dL Low 60 - 120 ug/dL [facility] Comment on above: This test was corina jiang, and its performance characteristics determined by the [facility] Department of Pathology and Laboratory Medicine. It has not been cleared or approved by the FDA. The [facility] Department of Pathology and Laboratory Medicine is regulated under CLIA as qualified to perform high-complexity testing. This test is used for clinical purposes. It should not be regarded as investigational or for research. Zinc [Mass/Vol]Ordered By: Roxane Sinha on 09-18-2024 Interpretation and review of laboratory results Abnormal [facility] RUBEN BY IFA SCREENon 09-17-20 24 Nuclear Ab pattern (S) [Interp] Nuclear homogeneous Normal [facility] Comment on above: Order Comment: Speci men Type: BLOOD SPECIMEN Ordering Facility: [facility] Address: [address] [place] [address] Performed By: #### 2 276-4, 2131-9, 60105-2, 2284-06 #### [facility] CLIA [id number] [address] [place] [address] [place] Nuclear Ab Ql (S) Positive Abnormal Negative [facility] Comment on above: Order Comment: Speci men Type: BLOOD SPECIMEN Ordering Facility: [facility] Address: [address] [place] [address] Result Comment: Anti -nuclear antibody test is used as an aid in diagnosis of systemic autoimmune diseases. Where positive and clinically warranted, follow-up using disease-specific testing is recommended. Low positive titers are not uncommon with advanced age, certain chronic infections, and malignancies among others. Test methodology: Indirect fluorescence immunoassay (IFA) using HEp-2 cells. 1:320 Performed By: #### 2 276-4, 2131-9, 61300-3, 2284-06 #### [facility] CLIA [id number] [address] [place] [address] [place] BCR/ABL1 P190 NCN P210 % IS MR BLOODon 09-17-2024 BCR/ABL1 P190 NCN(%BCR/ABL1:ABL1) N/A Normal [facility] Comment on above: Order Comment: Speci men Type: BLOOD SPECIMEN Ordering Facility: [facility] Address: [address] [place] [address] Performed By: #### B CRPB1 #### CLAR[facility] ILLUMINA LIMS CLIA [id number] [facility] [place] [address] [place] #### ISMRNCNPB #### [facility] CLIA [id number] [address] [place] [address] [place] BCR/ABL1 P210 %IS N/A Normal [facility] Comment on above: Order Comment: Speci men Type: BLOOD SPECIMEN Ordering Facility: [facility] Address: [address] [place] [address] Performed By: #### B CRPB1 #### CLAR[facility] ILLUMINA LIMS CLIA [id number] [address] [place] [address] [place] #### ISMRNCNPB #### [facility] CLIA [id number] [address] [place] [address] [place] BCR/ABL1 P210 MR N/A Normal [facility] Comment on above: Order Comment: Speci men Type: BLOOD SPECIMEN Ordering Facility: [facility] Address: [address] [place] [address] Performed By: #### B CRPB1 #### CLAR[facility] ILLUMINA LIMS CLIA [id number] [address] [place] [address] [place] #### ISMRNCNPB #### [facility] CLIA [id number] [address] [place] [address] [place] BCR/ABL1 P210 AND P190 DIAGN OSTIC PCR BLOODon 09-17-2024 BCR/ABL1 P210 AND P190 DIAGNOSTIC PCR BLOOD RESULT Normal [facility] Comment on above: Order Comment: Speci men Type: BLOOD SPECIMEN Ordering Facility: [facility] Address: [address] [place] [address] Result Comment: BCR/ ABL1 p210 and p190 Diagnostic PCR Laboratory Accession Number: [id number] Sample Type: Peripheral Blood Result: NOT DETECTED; negative for BCR/ABL1 p210 and p190 fusion transcripts. P190 NCN: N/A P210 MR: N/A %IS: N/A Interpretation: RT-PCR studies are negative for BCR/ABL1 p210 and p190 fusion transcripts. Very rare fusion transcripts, such as those involving exon 3 of ABL1 and alternate BCR fusion sites including the micro- breakpoint cluster region (p230 transcript), are not detected by this test. If clinical suspicion persists despite a negative test, the possibility of these very rare fusions can be further evaluated. In these cases, a bone marrow biopsy with cytogenetic karyotyping may be performed, followed by other more specific testing as clinically warranted and in consultation with the case hematopathologist and/or Molecular Pathology sign-out Staff. Limitations: This test detects the most common fusion transcripts, p210 (e13a2, e14a2) and p190 (e1a2, e1a3), which combined account for about 98-99 percent of BCR/ABL1 positive chronic myeloid leukemia and B-acute lymphoblastic leukemia/lymphoma cases. Other very rare fusion transcripts, such as those involving exon 3 of ABL1 and alternate BCR fusion sites including the micro-breakpoint cluster region (p230 transcript), are not detected by this test. Methodology: RNA was extracted from this sample, and cDNA prepared by reverse drying oven attendant. Real time PCR was performed in two separate reactions, using primers for e13a2 and/or e14a2 BCR/ABL1 fusion transcripts and ABL1 transcripts for p210 detection and primers for e1a2 BCR/ABL1 fusion transcripts and ABL1 transcripts for p190 detection (QuantideX BCR/ABL IS assay, [employer], [place], [place]). This assay has a limit of quantification and limit of detection of 0.002 percent IS or MR4.7 for p210 fusion transcripts, and a limit of quantification of 0.0036 percent (LR4.4) and limit of detection of 0.0025 percent (LR4.6) for p190 transcripts. Levels detected above or below the assays' limits of quantitation are resulted as DETECTED and quantitation indicated as greater than or less than the limits of quantitation for the IS percent, MR level and NCN, respectively. Disclaimer: This test was developed and its performance characteristics determined by [facility]'s [facility]ology and Laboratory Medicine Department. It has not been cleared or approved by the FDA. [facility]ology [facility] Department is regulated under CLIA as certified to perform high-complexity testing. This test is used for clinical purposes. It should not be regarded as investigational or for research. Testing and interpretation performed at [facility], [address] [place] [address]. CLIA Number: [id number] As reviewed by José Miguel Persaud MD Performed By: #### B CRPB1 #### CL[facility] ILLUMINA LIMS CLIA [id number] [address] [place] [address] #### ISMRNCNPB #### [facility] CLIA [id number] [address] [place], [place] [id number] [place] [facility] CBC W Ordered Manual Differe ntial panel (Bld)on 09-17-2024 Basophils (Bld) [#/Vol] 0.03 10*3/uL [facility] Basophils/100 WBC (Bld) 0.3 % [facility] Differential cell count method Nom (Bld) Auto [facility] Eosinophils (Bld) [#/Vol] 0.07 10*3/uL [facility] Eosinophils/100 WBC (Bld) 0.7 % [facility] Erythrocyte distribution width (RBC) [Ratio] 14.2 % 11.5 - 15.0 % [facility] Hematocrit (Bld) [Volume fraction] 35.2 % Low 36.0 - 46.0 % [facility] Hemoglobin (Bld) [Mass/Vol] 11.4 g/dL Low 11.5 - 15.5 g/dL [facility] Immature granulocytes (Bld) [#/Vol] 0.06 10*3/uL [facility] Immature granulocytes/100 WBC (Bld) 0.6 % [facility] Interpretation and review of laboratory results Abnormal [facility] Lymphocytes (Bld) [#/Vol] 1.42 10*3/uL [facility] Lymphocytes/100 WBC (Bld) 15.1 % [facility] MCH (RBC) [Entitic mass] 28.6 pg 26.0 - 34.0 pg [facility] MCHC (RBC) [Mass/Vol] 32.4 g/dL 30.5 - 36.0 g/dL [facility] MCV (RBC) [Entitic vol] 88.2 fL 80.0 - 100.0 fL [facility] Monocytes (Bld) [#/Vol] 0.52 10*3/uL NINF [facility] Monocytes/100 WBC (Bld) 5.5 % [facility]) [#/Vol] 7.33 10*3/uL [facility] Neutrophils/100 WBC (Bld) 77.8 % [facility] Nucleated RBC (Bld) [#/Vol] NINF [facility] Nucleated RBC/100 WBC (Bld) [Ratio] 0.0 % /100 WBC [facility] Platelet mean volume (Bld) [Entitic vol] 9.8 fL 9.0 - 12.7 fL [facility] Platelets (Bld) [#/Vol] 409 10*3/uL High [facility] RBC (Bld) [#/Vol] 3.99 10*6/uL 3.90 - 5.2 0 m/uL [facility] WBC (Bld) [#/Vol] 9.43 10*3/uL [facility] This is an appended report. These results have been appended to a previously verified report. [facility] Basophils (Bld) [#/Vol] 0.03 10*3/uL Normal <0.11 [facility] Comment on above: Order Comment: Speci men Type: BLOOD SPECIMENOrdering Facility: [facility] Address: [address] [place] [address] Performed By: #### 5 7782-5, 78476-3, [id number], STFREV ####[facility] [id number] [place] [address] [place] Basophils/100 WBC (Bld) 0.3 % Normal C [facility] Comment on above: Order Comment: Speci men Type: BLOOD SPECIMENOrdering Facility: [facility] Address: [address] [place] [address] Performed By: #### 5 7782-5, 74721-8, [id number], STFREV ####[facility] [id number] [place] [address] [place] Differential cell count method Nom (Bld) Auto Normal [facility] Comment on above: Order Comment: Speci men Type: BLOOD SPECIMENOrdering Facility: [facility] Address: [address] [place] [address] Performed By: #### 5 7782-5, 22822-1, [id number], STFREV ####[facility] [id number] [place] [address] [place] Eosinophils (Bld) [#/Vol] 0.07 10*3/uL Normal <0.46 [facility] Comment on above: Order Comment: Speci men Type: BLOOD SPECIMENOrdering Facility: [facility] Address: [address] [place] [address] Performed By: #### 5 7782-5, 91907-6, [id number], STFREV ####[facility] [id number] [place] [address] [place] Eosinophils/100 WBC (Bld) 0.7 % Normal [facility] Comment on above: Order Comment: Speci men Type: BLOOD SPECIMENOrdering Facility: [facility] Address: [address] [place] [address] Performed By: #### 5 7782-5, 00232-6, [id number], STFREV ####[facility]IA [id number] [place] [address] [place] Erythrocyte distribution width (RBC) [Ratio] 14.2 % Normal 11.5-15.0 [facility] Comment on above: Order Comment: Speci men Type: BLOOD SPECIMENOrdering Facility: [facility] Address: [address] [place] [address] Performed By: #### 5 7782-5, 16426-4, [id number], STFREV ####[facility]IA [id number] [place] [address] [place] Hematocrit (Bld) [Volume fraction] 35.2 % Low 36.0-46.0 [facility] Comment on above: Order Comment: Speci men Type: BLOOD SPECIMENOrdering Facility: [facility] Address: [address] [place] [address] Performed By: #### 5 7782-5, 25545-5, [id number], STFREV ####[facility] [id number] [place] [address] [place] Hemoglobin (Bld) [Mass/Vol] 11.4 g/dL Low 11.5-15.5 [facility] Comment on above: Order Comment: Speci men Type: BLOOD SPECIMENOrdering Facility: [facility] Address: [address] [place] [address] Performed By: #### 5 7782-5, 96731-4, [id number], STFREV ####[facility] [id number] [facility] [address] [place] Immature granulocytes (Bld) [#/Vol] 0.06 10*3/uL Normal <0.10 [facility] Comment on above: Order Comment: Speci men Type: BLOOD SPECIMENOrdering Facility: [facility] Address: [address] [place] [address] Performed By: #### 5 7782-5, 50402-6, [id number], STFREV ####[facility]CLIA [id number] [place] [address] [place] Immature granulocytes/100 WBC (Bld) 0.6 % Normal [facility] Comment on above: Order Comment: Speci men Type: BLOOD SPECIMENOrdering Facility: [facility] Address: [address] [place] [address] Performed By: #### 5 7782-5, 27647-5, [id number], STFREV ####[facility]CLIA [id number] [facility] [place] [address] [place] Lymphocytes (Bld) [#/Vol] 1.42 10*3/uL Normal 1.00-4.00 [facility] Comment on above: Order Comment: Speci men Type: BLOOD SPECIMENOrdering Facility: [facility] Address: [address] [place] [address] Performed By: #### 5 7782-5, 46199-8, [id number], STFREV ####[facility]IA [id number] [place] [address] [place] Lymphocytes/100 WBC (Bld) 15.1 % Normal [facility] Comment on above: Order Comment: Speci men Type: BLOOD SPECIMENOrdering Facility: [facility] Address: [address] [place] [address] Performed By: #### 5 7782-5, 29535-1, [id number], STFREV ####[facility] [id number] [place] [address] [place] MCH (RBC) [Entitic mass] 28.6 pg Normal 26.0-34.0 [facility] Comment on above: Order Comment: Speci men Type: BLOOD SPECIMENOrdering Facility: [facility] Address: [address] [place] [address] Performed By: #### 5 7782-5, 58112-9, [id number], STFREV ####[facility] [id number] [place] [address] [place] MCHC (RBC) [Mass/Vol] 32.4 g/dL Normal 30.5-36.0 [facility] Comment on above: Order Comment: Speci men Type: BLOOD SPECIMENOrdering Facility: [facility] Address: [address] [place] [address] Performed By: #### 5 7782-5, 53223-0, [id number], STFREV ####[facility]CLIA [id number] [place] [address] [place] MCV (RBC) [Entitic vol] 88.2 fL Normal 80.0-100.0 C [facility] Comment on above: Order Comment: Speci men Type: BLOOD SPECIMENOrdering Facility: [facility] Address: [address] [place] [address] Performed By: #### 5 7782-5, 81596-8, [id number], STFREV ####[facility]IA [id number] [place] [address] [place] Monocytes (Bld) [#/Vol] 0.52 10*3/uL Normal <0.87 [facility] Comment on above: Order Comment: Speci men Type: BLOOD SPECIMENOrdering Facility: [facility] Address: [address] [place] [address] Performed By: #### 5 7782-5, 05026-0, [id number], STFREV ####[facility]CLIA [id number] [place] [address] [place] Monocytes/100 WBC (Bld) 5.5 % Normal C [facility] Comment on above: Order Comment: Speci men Type: BLOOD SPECIMENOrdering Facility: [facility] Address: [address] [place] [address] Performed By: #### 5 7782-5, 95412-2, [id number], STFREV ####[facility] [id number] [place] [address] [place] Neutrophils (Bld) [#/Vol] 7.33 10*3/uL Normal 1.45-7.50 [facility] Comment on above: Order Comment: Speci men Type: BLOOD SPECIMENOrdering Facility: [facility] Address: [address] [place] [address] Performed By: #### 5 7782-5, 40229-4, [id number], STFREV ####[facility]IA [id number] [place] [address] [place] Neutrophils/100 WBC (Bld) 77.8 % Normal [facility] Comment on above: Order Comment: Speci men Type: BLOOD SPECIMENOrdering Facility: [facility] Address: [address] [place] [address] Performed By: #### 5 7782-5, 41892-9, [id number], STFREV ####[facility]IA [id number] [place] [address] [place] Nucleated RBC (Bld) [#/Vol] 10*3/uL Normal <0.01 [facility] Comment on above: Order Comment: Speci men Type: BLOOD SPECIMENOrdering Facility: [facility] Address: [address] [place] [address] Performed By: #### 5 7782-5, 10518-3, [id number], STFREV ####[facility]CLIA [id number] [place] [address] [place] Nucleated RBC/100 WBC (Bld) [Ratio] 0.0 /100 WBC Normal [facility] Comment on above: Order Comment: Speci men Type: BLOOD SPECIMENOrdering Facility: [facility] Address: [address] [place] [address] Performed By: #### 5 7782-5, 29053-9, [id number], STFREV ####[facility]CLIA [id number] [place] [address] [place] Platelet mean volume (Bld) [Entitic vol] 9.8 fL Normal 9.0-12.7 [facility] Comment on above: Order Comment: Speci men Type: BLOOD SPECIMENOrdering Facility: [facility] Address: [address] [place] [address] Performed By: #### 5 7782-5, 90075-9, [id number], STFREV ####[facility]CLIA [id number] [place] [address] [place] Platelets (Bld) [#/Vol] 409 10*3/uL High 150-400 [facility] Comment on above: Order Comment: Speci men Type: BLOOD SPECIMENOrdering Facility: [facility] Address: [address] [place] [address] [place] [address] Performed By: #### 5 7782-5, 34206-9, [id number], STFREV ####[facility]CLIA [id number] [place] [address] [place] RBC (Bld) [#/Vol] 3.99 10*6/uL Normal 3.90-5.20 [facility] Comment on above: Order Comment: Speci men Type: BLOOD SPECIMENOrdering Facility: [facility] Address: [address] [place] [address] Performed By: #### 5 7782-5, 20889-1, [id number], STFREV ####[facility]CLIA [id number] [place] [address] [place] WBC (Bld) [#/Vol] 9.43 10*3/uL Normal 3.70-11.00 [facility] Comment on above: Order Comment: Speci men Type: BLOOD SPECIMENOrdering Facility: [facility] Address: [address] [place] [address] Performed By: #### 5 7782-5, 87807-6, [id number], STFREV ####[facility]CLIA [id number] [place] [address] [place] CNOVSPon 09-17-2024 CNOVSP Visit (SP) Office (HEMAST) YUSUF MEDINA ([id number]) 1935 [facility] Date Time Provider Department 09/17/24 3:10 PM GRUPO MENDEZ During your visit today, we recorded the following information about you: Pulse Respiration Blood pressure Weight 92/minute 16/minute 166/88 52.2 kg Grupo Mendez MD 09/24/2024 3:38 AM Signed Consultation requested by Dr. Migdalia Cramer for an opinion regarding leukocytosis. My final recommendations will be communicated back to the requesting physician by way of shared Medical record or letter to requesting physician via US mail. Presenting complaint: Patient Yusuf Medina was sent to my office to be evaluated for leukocytosis. ASSESSMENT: (D78.451) Leukocytosis, unspecified type (primary encounter diagnosis) Comment: Patient is a delightful 88 year old lady with prior admission from 03/07/2023 to 03/09/2023 for leukocytosis and polyarthralgia. Prior Xray of the knee and wrists showed chondrocalcinosis. She was seen by rheumatology with recommendations for tap of her wrists which patient declined. CBC on 08/13/2024 showed WBC 17.15 Hb 10.9 HCT 33.5 MCV 87.9 Platelets 321 CBC on 08/14/2024 showed WBC 12.41 Hb 11.2 HCT 35.2 MCV 89.3 Platelets 330 Plan: Leukocytosis appears reactive and neutrophilic. Plan to obtain BCR/ABL to rule out CML Plan to obtain pathology review for peripheral smear for signs of dysplasia or immature cells (D64.9) Normocytic anemia Comment: persistent at least since 03/06/2023 Plan: Patient is not keen on invasive bone marrow biopsy Plan to obtain non-invasive work-up to include nutritional deficiencies work-up such as iron studies, ferritin, folate, MMA, homocysteine, retic count, Vitamin B12, Vitamin B6, copper, zinc, copper, monoclonal gammopathy (M25.471) Right ankle swelling Comment: unilateral. Plan: Obtain US DVT LOWER RIGHT to rule out DVT Obtain XR ANKLE GENERAL 3V AP/LAT/OBL RIGHT to rule out underlying fracture Obtain RUBEN PANEL BLOOD SCRN, URIC ACID, CCP ANTIBODY IGG Return in about 4 months (around 01/15/2025) for follow-up with provider. Medical Decision Making: Problems: Moderate: New problem with uncertain prognosis Data: Unique test result(s) reviewed: 1 Assessment requiring an independent historian(s) Independent interpretation of test from other physician/QHCP Medical Decision Making Level: 4 - Moderate HPI: Patient is a delightful 88 year old lady with prior admission from 03/07/2023 to 03/09/2023 for leukocytosis and polyarthralgia. Prior Xray of the knee and wrists showed chondrocalcinosis. She was seen by rheumatology with recommendations for tap of her wrists which patient declined. CBC on 08/13/2024 showed WBC 17.15 Hb 10.9 HCT 33.5 MCV 87.9 Platelets 321 CBC on 08/14/2024 showed WBC 12.41 Hb 11.2 HCT 35.2 MCV 89.3 Platelets 330 Her right ankle is swollen for several days. Today in office patient reports she is feeling fatigued and endorses low energy level. She denies chest pain, cough, shortness of breath or hemoptysis. She denies syncope or orthopnea. Patient denies fever, chills, weight loss or night sweats. She denies dysuria or hematuria. She denies abdominal pain, abdominal bloating, nausea, vomiting, diarrhea. Patient denies motor weakness or neuropathy or headaches. She denies bleeding. She continues to perform her routine activities without excessive fatigue. 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/25/2017 CKD (chronic kidney disease) 05/11/2016 Essential hypertension, benign Hyperlipidemia LDL goal < 100 02/12/2014 Intractable low back pain 08/25/2015 Osteoarthrosis, unspecified whether generalized or localized, other specified sites Left hip Plantar fasciitis 05/25/2017 Primary insomnia 05/25/2017 Renal dysfunction Type II or unspecified type diabetes mellitus without mention of complication, not stated as uncontrolled PAST SURGICAL HISTORY Procedure Laterality Date ARTHRP ACETBLR/PROX FEM PROSTC AGRFT/ALGRFT 11/14/2011 Hip replacement, total, L REMV CATARACT EXTRACAP,INSERT LENS Bilateral 2020 [facility] FAMILY HISTORY Problem Relation Age of Onset None Brother None Sister None Brother SOCIAL HISTORY Social History Tobacco Use Smoking status: Never Smokeless tobacco: Never Substance Use Topics Alcohol use: No Drug use: No ALLERGIES: ALLERGIES No Known Allergies MEDICATIONS: Current Outpatient Medications Medication Sig traZODone (DESYREL) 50 mg tablet Take 1 tablet by mouth at bedtime as needed for sedation. blood sugar diagnostic (newMentorUCH ULTRA TEST) test strip Test blood sugar once daily glipiZIDE (GLUCOTROL XL) 2.5 mg 24 hr tablet TAKE 1 TABLET BY MOUTH ONCE DAILY lisinopril-hydroCHLORO thiazide (ZESTORETIC) 20-25 mg per tablet Take 1 tablet by mouth once daily. pioglitazone (more content not included)... Normal [facility] COPPER BLOODon 09-17-2024 Copper [Mass/Vol] 128 ug/dL Normal 80-155 [facility] Comment on above: Order Comment: Speci men Type: BLOOD SPECIMEN [facility] Address: [address] [place] [address] Result Comment: This test was developed, and its performance characteristics determined by the [facility] Department of Pathology and Laboratory Medicine. It has not been cleared or approved by the FDA. The [facility] Department of Pathology and Laboratory Medicine is regulated under CLIA as qualified to perform high-complexity testing. This test is used for clinical purposes. It should not be regarded as investigational or for research. Performed By: #### B CRPB1 #### [facility] CLIA [id number] [address] [place] [address] [place] #### ISMRNCNPB #### [facility] CLIA [id number] [address] [place] [address] [place] Centromere Ab IF Ql (S)on Centromere Ab Qn (S) <0.2 Normal <1.0 [facility] Comment on above: Order Comment: Fan meade Type: BLOOD SPECIMEN [facility] Address: [address] [place] [address] Result Comment: Anti -centromere antibody is used as in aid in diagnosis of systemic sclerosis. Clinical correlation is required. Test Methodology: Multiplex flow immunoassay. Performed By: #### 2 276-4, 2132-9, 49430-2, 2284-8 #### [facility] CLIA [id number] [address] [place] [address] [place] CENTROMERE AB QUAL Negative Normal Negative [facility] Comment on above: Order Comment: Speci men Type: BLOOD SPECIMEN [facility] Facility[facility] Address: [address] [place] [address] Performed By: #### 2 276-4, 9, 94772-8, 8 #### [facility] CLIA [id number] [address] [place] [address] [place] Chromatin Ab Qnon 09-17-2024 CHROMATIN AB QUAL Negative Normal Negative [facility] Comment on above: Order Comment: Speci men Type: BLOOD SPECIMEN [facility] Facility[facility] Address: [address] [place] [address] Performed By: #### 2 276-4, 9, 28241-5, 8 #### [facility] CLIA [id number] [place] [address] [place] Chromatin Ab SerPl-aCncon Chromatin Ab Qn <0.2 Normal <1.0 [facility] Comment on above: Order Comment: Speci men Type: BLOOD SPECIMEN Ordering Facility: [facility] Address: [address] [place] [address] Result Comment: Test Methodology: Multiplex flow immunoassay. Performed By: #### 2 276-4, 9, 60353-3, 8 #### [facility] CLIA [id number] [address] [place] [address] [place] Cyclic citrullinated peptide IgG Qnon 09-17-2024 CCP ANTIBODY IGG QUALITATIVE Negative Normal Negative [facility] Comment on above: Order Comment: Speci men Type: BLOOD SPECIMEN Ordering Facility: [facility] Address: [address] [place] [address] Performed By: #### 2 276-4, 9, 50052-0, 2284-06 #### [facility] CLIA [id number] [address] [place] [address] [place] DNA double strand Ab IA Qn ( S)on 09-17-2024 DNA ANTIBODY 175 IU/mL Normal <=200 [facility] Comment on above: Order Comment: Speci men Type: BLOOD SPECIMEN Ordering Facility: [facility] Address: [address] [place] [address] Result Comment: Nega tive: <200 IU/mL Equivocal: 201-300 IU/mL Moderate Positive: 301-800 IU/mL Strong Positive: >801 IU/mL Performed By: #### 2 276-4, 9, 62171-4, 8 #### [facility] CLIA [id number] [address] [place] [address] [place] DNA ANTIBODY QUALITATIVE INTERPRETATION Negative Normal Negative [facility] Comment on above: Order Comment: Speci men Type: BLOOD SPECIMEN Ordering Facility: [facility] Address: [address] [place] [address] Performed By: #### 2 276-4, 9, 92119-3, 2284-06 #### [facility] CLIA [id number] [address] [place] [address] [place] EUFEMIA Jo1 Ab Ser-aCncon 2023 Nadege-1 extractable nuclear Ab Qn (S) <0.2 Normal <1.0 [facility] Comment on above: Order Comment: Speci men Type: BLOOD SPECIMEN Ordering Facility: [facility] Address: [address] [place] [address] Performed By: #### 2 276-4, 9, 34267-7, 2284-06 #### [facility] CLIA [id number] [address] [place] [address] [place] EUFEMIA MARKET NEWS REPORTER Ab Ser-aCncon 2023 Ribonucleoprotein extractable nuclear Ab Qn (S) <0.2 Normal <1.0 [facility] Comment on above: Order Comment: Speci men Type: BLOOD SPECIMEN Ordering Facility: [facility] Address: [address] [place] [address] Performed By: #### 2 276-4, 2131-9, 88517-5, 8 #### [facility] CLIA [id number] [address] [place] [address] [place] Ribonucleoprotein extractable nuclear Ab Qn (S) 2.3 AI High <1.0 [facility] Comment on above: Order Comment: Speci men Type: BLOOD SPECIMEN Ordering Facility: [facility] Address: [address] [place] [address] Performed By: #### 2 276-4, 9, 39148-0, 2284-06 #### [facility] CLIA [id number] [address] [place] [address] [place] EUFEMIA SM IgG Ser-aCncon 2023 Bang extractable nuclear IgG Qn (S) <0.2 Normal <1.0 [facility] Comment on above: Order Comment: Speci men Type: BLOOD SPECIMEN Ordering Facility: [facility] Address: [address] [place] [address] Performed By: #### 2 276-4, 9, 54379-5, 2284-06 #### [facility] CLIA [id number] [address] [place] [address] [place] EUFEMIA SS-A Ab Ser-aCncon 09-17 Sjogrens syndrome-A extractable nuclear Ab Qn (S) <0.2 Normal <1.0 [facility] Comment on above: Order Comment: Speci men Type: BLOOD SPECIMEN Ordering Facility: [facility] Address: [address] [place] [address] Result Comment: Test Methodology: Multiplex flow immunoassay. Performed By: #### 2 276-4, 9, 78247-9, 2284-06 #### [facility] CLIA [id number] [address] [place] [address] [place] EUFEMIA SS-B Ab Ser-aCncon 09-17 Sjogrens syndrome-B extractable nuclear Ab Qn (S) <0.2 Normal <1.0 [facility] Comment on above: Order Comment: Fan meade Type: BLOOD SPECIMEN Ordering Facility: [facility] Address: [address] [place] [address] Result Comment: Anti -SSB (anti-La) antibody is used as an aid in diagnosis of a variety of systemic autoimmune diseases, especially for Sjogren's syndrome and systemic lupus erythematosus. Clinical correlation is required. Test Methodology: Multiplex flow immunoassay. Performed By: #### 2 276-4, 2131-9, 53515-3, 8 #### [facility] CLIA [id number] [address] [place] [address] [place] Ferritin SerPl-mCncon 2023 Ferritin [Mass/Vol] 59.9 ng/mL Normal 14.7-205.1 [facility] Comment on above: Order Comment: Fan meade Type: BLOOD SPECIMENOrdering Facility: [facility] Address: [address] [place] [address] Performed By: #### 5 0190-8, 3084-1, 2276-4 ####[facility] [id number] [place] [address] [place] Folate SerPl-mCncon 09-17-20 Folate [Mass/Vol] 18.8 ng/mL Normal >4.7 [facility] Comment on above: Order Comment: Fan meade Type: BLOOD SPECIMEN Ordering Facility: [facility] Address: [address] [place] [address] Performed By: #### 2 276-4, 2131-9, 85372-4, 8 #### [facility] CLIA [id number] [address] [place] [address] [place] Hcys SerPl-sCncon 09-17-2024 Homocysteine [Moles/Vol] 21.2 umol/L High <15.1 [facility] Comment on above: Order Comment: Fan meade Type: BLOOD SPECIMEN Ordering Facility: [facility] Address: [address] [place] [address] Performed By: #### 2 276-4, 2131-9, 84635-1, 8 #### [facility] CLIA [id number] [address] [place], [place] [id number] [place] IMMUNOFIXATION SCREEN, SERUM on 09-17-2024 INTERPRETATION (MPA) Poorly definded reg ion of restricted mobility in IgG and lambda lanes. Pattern is less well defined or fainter than typically seen in monoclonal gammopathy. This could represent either an atypical presentation of polyclonal immunoglobulins or the presence of a low level IgG lambda monoclonal gammopathy. If clinically indicated, urine monoclonal protein analysis and serum free light chain measurements are recommended to evaluate further for monoclonal gammopathy. Clinical correlation is necessary. Normal [facility] Comment on above: Order Comment: Fan meade Type: BLOOD SPECIMEN Ordering Facility: [facility] Address: [address] [place] [address] Performed By: #### 2 276-4, 9, 73103-0, 8 #### [facility] CLIA [id number] [address] [place] [address] [place] MPA RESULT A poorly defined region of restricted mobility is present that may represent an M protein. Abnormal No M protein is identified. [facility] Comment on above: Order Comment: Fan meade Type: BLOOD SPECIMEN Ordering Facility: [facility] Address: [address] [place] [address] Performed By: #### 2 276-4, 9, 63375-0, 8 #### [facility] CLIA [id number] [address] [place], [place] [address] [place] STAFF REVIEW (MPA) Reviewed by Brianne Mosley M.D., Ph.D Normal [facility] Comment on above: Order Comment: Fan meade Type: BLOOD SPECIMEN Ordering Facility: [facility] Address: [address] [place] [address] Performed By: #### 2 276-4, 9, 22935-2, 8 #### [facility] CLIA [id number] [address] [place] [address] [place] IMMUNOGLOBULINS,IGG,IGA,IGMo n 09-17-2024 IgA [Mass/Vol] 142 mg/dL Normal 70-400 [facility] Comment on above: Order Comment: Speci men Type: BLOOD SPECIMEN Ordering Facility: [facility] Address: [address] [place] [address] Performed By: #### 2 276-4, 2131-9, 01069-1, 8 #### [facility] CLIA [id number] [address] [place] [address] [place] IgG [Mass/Vol] 750 mg/dL Normal 700-1600 [facility] Comment on above: Order Comment: Speci men Type: BLOOD SPECIMEN Ordering Facility: [facility] Address: [address] [place] [address] Performed By: #### 2 276-4, 2131-9, 12727-8, 8 #### [facility] CLIA [id number] [address] [place] [address] [place] IgM [Mass/Vol] 23 mg/dL Low 40-230 [facility] Comment on above: Order Comment: Speci men Type: BLOOD SPECIMEN Ordering Facility: [facility] Address: [address] [place] [address] Performed By: #### 2 276-4, 2131-9, 01812-4, 8 #### [facility] CLIA [id number] [address] [place] [address] [place] Iron and Iron binding capaci ty panelon 09-17-2024 Iron [Mass/Vol] 29 ug/dL Low 41-186 [facility] Comment on above: Order Comment: Speci men Type: BLOOD SPECIMENOrdering Facility: [facility] Address: [address] [place] [address] Performed By: #### 5 0190-8, 4-1, 2275- ####[facility] [id number] [place] [address] [place] Iron binding capacity [Mass/Vol] 407 ug/dL High 232-386 [facility] Comment on above: Order Comment: Speci men Type: BLOOD SPECIMENOrdering Facility: [facility] Address: [address] [place] [address] Performed By: #### 5 0190-8, 4-1, 2275- ####[facility] [id number] [place] [address] [place] Iron/TIBC [Molar ratio] 7.1 % Low 15.0-57.0 C [facility] Comment on above: Order Comment: Speci men Type: BLOOD SPECIMENOrdering Facility: [facility] Address: [address] [place] [address] Performed By: #### 5 0190-8, 3083-1, 2276-02 ####[facility] [id number] [place] [address] [place] Nadege-1 extractable nuclear Ab Qn (S)on 09-17-2024 NADEGE 1 ANTIBODY QUAL Negative Normal Negative [facility] Comment on above: Order Comment: Speci men Type: BLOOD SPECIMEN Ordering Facility: [facility] Address: [address] [place] [address] Result Comment: Anti -NADEGE-1 antibody is used as an aid in diagnosis of polymyositis and dermatomyositis especially with pulmonary involvement. A negative result cannot rule out polymyositis or dermatomyositis. Clinical correlation is required. Test Methodology: Multiplex flow immunoassay. Performed By: #### 2 276-4, 2132-9, 96912-4, 2284-8 #### [facility] CLIA [id number] [address] [place] [address] [place] KAPPA/BOWEN,FREE,SERon 11-04- 2024 Immunoglobulin light chains.kappa.free (S) [Mass/Vol] 45.2 mg/L High 3.3-19.4 [facility] Comment on above: Order Comment: Speci men Type: BLOOD SPECIMENOrdering Facility: [facility] Address: [address] [place] [address] Result Comment: Rare ly, increased serum free light chains levels may not be detected or accurately quantified due to prozone phenomenon or in high viscosity samples using this immunoturbidimetric assay. Correlation with other laboratory results and clinical findings is recommended. The [place] Free Light Chain was performed using the Binding Site Optilite immunoturbidimetric method. Result obtained with different assay methods or kits cannot be used interchangeably. Performed By: #### K LFRS ####[facility] [id number] [place] [address] [place] Immunoglobulin light chains.kappa/Immunoglob ulin light chains.lambda (S) [Mass ratio] 1.57 Normal 0.26-1.65 [facility] Comment on above: Order Comment: Speci halina Type: BLOOD SPECIMENOrdering Facility: [facility] Address: [address] [place] [address] Performed By: #### K LFRS ####[facility] [id number] [place] [address] [place] Immunoglobulin light chains.lambda.free [Mass/Vol] 28.8 mg/L High 5.7-26.3 [facility] Comment on above: Order Comment: Speci men Type: BLOOD SPECIMENOrdering Facility: [facility] Address: [address] [place] [address] Result Comment: Rare ly, increased serum free light chains levels may not be detected or accurately quantified due to prozone phenomenon or in high viscosity samples using this immunoturbidimetric assay. Correlation with other laboratory results and clinical findings is recommended. The Lambda Free Light Chain was performed using the Binding Site Optilite immunoturbidimetric method. Result obtained with different assay methods or kits cannot be used interchangeably. Performed By: #### K LFRS ####[facility] [id number] [place] [address] [place] Methylmalonate SerPl-sCncon 09-17-2024 Methylmalonate [Moles/Vol] 0.29 umol/L Normal <=0.40 [facility] Comment on above: Order Comment: Fan meade Type: BLOOD SPECIMEN Ordering Facility: [facility] Address: [address] [place] [address] Result Comment: This test was developed, and its performance characteristics determined by the [facility] Department of Pathology and Laboratory Medicine. It has not been cleared or approved by the FDA. The [facility] Department of Pathology and Laboratory Medicine is regulated under CLIA as qualified to perform high-complexity testing. This test is used for clinical purposes. It should not be regarded as investigational or for research. Performed By: #### 2 276-4, 9, 55159-8, 8 #### [facility] IA [id number] [address] [place] [address] [place] Nuclear Ab IA Ql (S)on 09-17 RUBEN SCR QUAL Positive Abnormal Negative [facility] Comment on above: Order Comment: Fan meade Type: BLOOD SPECIMEN Ordering Facility: [facility] Address: [address] [place] [address] Result Comment: The qualitative antinuclear antibody screen test performed using the following antigens: dsDNA, Chromatin, Ribosomal P, SS-A 60, SS-A 52, SS-B, Sm, SmRNP, MARKET NEWS REPORTER A, MARKET NEWS REPORTER 68, Scl-70, Nadege-1, and Centromere B. Methodology: Multiplex flow immunoassay. Performed By: #### 2 276-4, 9, 26020-7, 8 #### [facility] CLIA [id number] [address] [place] [address] [place] PATHOLOGIST INTERPRETATION C BC/DIFFon 09-17-2024 Strike Out Machine Operator review Mckay (Unsp spec) [Interp] Reviewed by Dominga Johnson MD Normal [facility] Comment on above: Order Comment: Fan meade Type: BLOOD SPECIMENOrdering Facility: [facility] Address: [address] [place] [address] Performed By: #### 5 7782-5, 18153-8, [id number], STFREV ####[facility] [id number] [place] [address] [place] STAFF REVIEW, CBCDIF Normal [facility] Comment on above: Order Comment: Speci men Type: BLOOD SPECIMENOrdering Facility: [facility] Address: [address] [place] [address] Result Comment: Norm ocytic anemia without polychromasia Thrombocytosis Performed By: #### 5 7782-5, 73805-8, [id number], STFREV ####[facility] [id number] [place] [address] [place] RBC MORPHOLOGYon 09-17-2024 Platelets Estimate (Bld) [#/Vol] Increased Normal [facility] Comment on above: Order Comment: Speci men Type: BLOOD SPECIMENOrdering Facility: [facility] Address: [address] [place] [address] Performed By: #### 5 7782-5, 81793-9, [id number], STFREV ####[facility] [id number] [place] [address] [place] RBC morphology finding Nom (Bld) Reviewed: unremarkable Normal [facility] Comment on above: Order Comment: Speci men Type: BLOOD SPECIMENOrdering Facility: [facility] Address: [address] [place] [address] Performed By: #### 5 7782-5, 92987-6, [id number], STFREV ####[facility] [id number] [place] [address] [place] RETICULOCYTE COUNTon 024 Reticulocytes (Bld) [#/Vol] 0.078 10*3/uL [facility] #on 09-17-2024 Reticulocytes (Bld) [#/Vol] 0.56275 10*3/uL Normal 0.018-0.100 [facility] Comment on above: Order Comment: Fan meade Type: BLOOD SPECIMENOrdering Facility: [facility] Address: [address] [place] [address] Performed By: #### 5 7782-5, 50148-0, [id number], STFREV ####[facility] [id number] [place] [address] [place] Reticulocytes (Bld) [#/Vol]o n 09-17-2024 Interpretation and review of laboratory results Normal [facility] Reticulocytes/100 RBC (Bld) 2.0 % 0.4 - 2.0 % [facility] Reticulocytes/100 RBC (Bld) 2.0 % Normal 0.4-2.0 [facility] Comment on above: Order Comment: Fan meade Type: BLOOD SPECIMENOrdering Facility: [facility] Address: [address] [place] [address] Performed By: #### 5 7782-5, 90185-7, [id number], STFREV ####[facility] [id number] [place] [address] [place] Ribonucleoprotein extractabl e nuclear Ab Qn (S)on 09-17-2024 ANTI-MARKET NEWS REPORTER QUAL Positive Abnormal Negative [facility] Comment on above: Order Comment: Fan meade Type: BLOOD SPECIMEN Ordering Facility: [facility] Address: [address] [place] [address] Performed By: #### 2 276-4, 2132-9, 17972-1, 2284-8 #### [facility] CLIA [id number] [address] [place] [address] [place] RIBOSOMAL MARKET NEWS REPORTER QUAL Negative Normal Negative [facility] Comment on above: Order Comment: Fan meade Type: BLOOD SPECIMEN Ordering Facility: [facility] Address: [address] [place] [address] Result Comment: Anti -Ribosomal RNA (Ribosomal P) antibody is used as an aid in diagnosis of systemic autoimmune diseases especially systemic lupus erythematosus and mixed connective tissue disease. Cross-reactivity with Anti-bang antibody is not uncommon. Clinical correlation is required. Test Methodology: Multiplex flow immunoassay. Performed By: #### 2 276-4, 9, 80143-3, 2284-06 #### [facility] CLIA [id number] [address] [place] [address] [place] SCL-70 extractable nuclear I gG IA Qn (S)on 09-17-2024 SCLERODERMA AB QUAL Negative Normal Negative [facility] Comment on above: Order Comment: Speci men Type: BLOOD SPECIMEN Ordering Facility: [facility] Address: [address] [place] [address] Performed By: #### 2 276-4, 9, 15086-4, 2284-06 #### [facility] CLIA [id number] [address] [place] [address] [place] SCLERODERMA IGG AB <0.2 Normal <1.0 [facility] Comment on above: Order Comment: Speci men Type: BLOOD SPECIMEN Ordering Facility: [facility] Address: [address] [place] [address] Result Comment: Scl- 70/Scleroderma antibody test is used as an aid in diagnosis of systemic sclerosis especially the diffuse cutaneous form. A negative result cannot rule out systemic sclerosis. The final interpretation should consider clinical picture and other test results such as anti-centromere antibody. Test Methodology: Multiplex flow immunoassay. Performed By: #### 2 276-4, 9, 31820-7, 2284-06 #### [facility] CLIA [id number] [address] [place] [address] [place] Sjogrens syndrome-A extracta ble nuclear Ab Qn (S)on 09-17-2024 SSA ANTIBODY QUAL Negative Normal Negative [facility] Comment on above: Order Comment: Speci men Type: BLOOD SPECIMEN Ordering Facility: [facility] Address: [address] [place] [address] Performed By: #### 2 276-4, 2131-9, 35101-4, 8 #### [facility] CLIA [id number] [address] [place] [address] [place] Sjogrens syndrome-B extracta ble nuclear Ab Qn (S)on 09-17-2024 SSB ANTIBODY QUAL Negative Normal Negative [facility] Comment on above: Order Comment: Speci men Type: BLOOD SPECIMEN Ordering Facility: [facility] Address: [address] [place] [address] Performed By: #### 2 276-4, 9, 11177-9, 8 #### [facility] CLIA [id number] [address] [place] [address] [place] Bang extractable nuclear Ig G Qn (S)on 09-17-2024 SM ANTIBODY QUAL Negative Normal Negative [facility] Comment on above: Order Comment: Speci men Type: BLOOD SPECIMEN Ordering Facility: [facility] Address: [address] [place] [address] Result Comment: Anti -Sm (Bang) antibody is used as an aid in diagnosis of systemic lupus erythematosus and its presence is associated with renal disease. A negative result cannot rule out systemic lupus erythematosus. Clinical correlation is required. Test Methodology: Multiplex flow immunoassay. Performed By: #### 2 276-4, 9, 56101-9, 8 #### [facility] CLIA [id number] [address] [place] [address] [place] Urate SerPl-mCncon 4 Urate [Mass/Vol] 5.6 mg/dL Normal 2.5-6.6 [facility] Comment on above: Order Comment: Speci men Type: BLOOD SPECIMENOrdering Facility: [facility] Address: [address] [place] [address] Performed By: #### 5 0190-8, 3084-1, 2276-4 ####[facility] [id number] [address] [place] Vit B12 SerPl-mCncon 024 Cobalamin (Vitamin B12) [Mass/Vol] 433 pg/mL Normal 232-1245 [facility] Comment on above: Order Comment: Speci men Type: BLOOD SPECIMEN Ordering Facility: [facility] Address: [address] [place] [address] Performed By: #### 2 276-4, 2132-9, 95745-9, 2284-8 #### [facility] CLIA [id number] [address] [place] [address] [place] XR ANKLE 3V AP/LAT/OBL RTon 09-17-2024 XR ANKLE 3V AP/LAT/OBL RT * * *Final Report* * * DATE OF EXAM: Sep 17 2024 4:30PM STX 5297 - XR ANKLE 3V AP/LAT/OBL RT / PROCEDURE REASON: Right ankle swelling * * * * Physician Interpretation * * * * HISTORY: Right ankle swelling . right ankle swollen TECHNIQUE: XR ANKLE 3V AP/LAT/OBL RT Laterality: RIGHT Number of different views (projections): 3 COMPARISON: None RESULT: Generalized bone demineralization compatible with osteopenia. Linear lucency overlying the posterior-superior aspect of the calcaneus on lateral view suspicious for an acute nondisplaced fracture. No dislocation. Ankle mortise is congruent. Tibiotalar narrowing. Plantar calcaneal and Achilles tendon enthesophytes. Subtalar and midfoot joint space narrowing with osteophytes. Pes planus. Marked soft tissue swelling about the ankle. Atherosclerotic calcifications. IMPRESSION: Marked right ankle soft tissue swelling. Osteopenia and suspicion of nondisplaced calcaneus fracture. Degenerative changes, calcaneal enthesophytes, and pes planus. Supervisor Wound: PSCB Transcribe Date/Time: Sep 18 2024 12:20P Dictated by : GERTRUDIS MONCADA MD This examination was interpreted and the report reviewed and electronically signed by: GERTRUDIS MONCADA MD on Sep 18 2024 12:22PM EST [id number] Normal [facility] XR Ankle - right AP and Late ral and obliqueon 09-17-2024 Radiology [facility]ative[facility] Zinc SerPl-mCncon 09-17-2024 Zinc [Mass/Vol] 55 ug/dL Low 60-120 [facility] Comment on above: Order Comment: Fan meade Type: BLOOD SPECIMEN Ordering Facility: [facility] Address: [address] [place] [address] Result Comment: This test was developed, and its performance characteristics determined by the [facility] Department of Pathology and Laboratory Medicine. It has not been cleared or approved by the FDA. The [facility] Department of Pathology and Laboratory Medicine is regulated under CLIA as qualified to perform high-complexity testing. This test is used for clinical purposes. It should not be regarded as investigational or for research. Performed By: #### B CRPB1 #### [facility] CLIA [id number] [address] [place] [address] [place] #### ISMRNCNPB #### [facility] CLIA [id number] [address] [place] [address] [place] cCP IgG SerPl-aCncon 024 Cyclic citrullinated peptide IgG Qn <15 Normal <20 [facility] Comment on above: Order Comment: Fan meade Type: BLOOD SPECIMEN Ordering Facility: [facility] Address: [address] [place] [address] Performed By: #### 2 276-4, 2132-9, 88152-2, 2284-8 #### [facility] CLIA [id number] [address] [place] [address] [place] CNOVon 09-13-2024 CNOV Office Visit ([facility] ) YUSUF MEDINA ([id number]) 1935 F [place][birth year] Date Time Provider Department 09/13/24 10:00 AM MIGDALIA CRAMER [facility] During your visit today, we recorded the following information about you: Pulse Blood pressure Weight 98/minute 150/60 51.3 kg Migdalia Cramer MD 10/19/2024 9:36 PM Signed Yusuf Medina is a 88 year old female here for a Medicare wellness visit. She has been taking her medicines every day, no problems She is sleeping better Taking trazodone No problems feeling sleepy in the AM or during the day Medicare Health Risk Assessment General Health Very good Exercise: Minutes/Day 10 min Exercise: Days/Week 3 days Alcohol: Daily Use Never Alcohol: Drinks/Day Patient does not drink Alcohol: 6 or more drinks Never Feel off balance No Concerns: Teeth/Dentures No Concerns: Sexual function No Troubled by feelings Lonely; Irritable Frequency: Eating healthy diet Several days ADLs requiring help Grocery shopping; Taking medications; Housework (daughter in law and son assist patient with checked items) Safety precautions in home/vehicle Yes Smoke, vape, chews tobacco No Difficulty hearing Yes Difficulty seeing No Current Providers Specialists: I have reviewed specialist-related care of the patient in the medical record. Seeing Hematology in 4 days for leukocytosis Medical/Family history review Reviewed and updated problem list, medical history, social history, and medication list. Opioid use review Opioid Medications (last 90 days) No data to display Anxiety/Depression screening PHQ-2 Score: 2 (Lower risk for depression) Recommendation: no further intervention at this time Cognitive screening Mini Cog Score: 0 Cognitive screening reviewed and Patient declined Mini-Cog test. Unable to to language barrier Functional Observation Was the patient's Timed Up AND Go test unsteady or >= 12 seconds? No Advance Care Planning Surrogate decision maker and/or advance care plan documented Measurements BP 151/73 Pulse 98 Wt 51.3 kg (113 lb 1.5 oz) BMI 22.09 kg/m? CV: RRR w/o m,r,g, nl S1/S2 LUNGS: CTAB w/o w,r,r Assessment/Plan Medicare annual wellness visit, subsequent (Z00.00) - Counseled on healthy diet and regular exercise - Fall avoidance information provided - Personalized prevention plan provided - ACP discussion completed Declines vaccines Additional Concerns The following concerns were also discussed with the patient: 2 days of swelling and redness of the right ankle, lateral side No injury No limitation of movement No fever She wears boots when she goes outside Seeing Hematology in 4 days for leukocytosis Workup has included evaluation for UTI as well as inflammatory markers, thyroid function, urine and serum protein electrophoresis PHYSICAL EXAM BP 150/60 Pulse 98 Wt 51.3 kg (113 lb 1.5 oz) BMI 22.09 kg/m? GENERAL: well appearing, alert, in no acute distress CARDIOVASCULAR: regular rate and rhythm. No murmur, rubs or gallops. PULMONARY: clear to auscultation, no wheezing, rhonchi, or crackles EXT: R ankle, lat side, slight erythema and swelling localized to just where her boot rubs on skin (Z00.00) Medicare annual wellness visit, subsequent (primary encounter diagnosis) (Z13.31) Screening for depression (G47.00) Insomnia (Z13.39) Encounter for screening examination for other mental health and behavioral disorders (S90.511A) Abrasion of right ankle, initial encounter (I10) Essential hypertension (F51.01) Primary insomnia (E11.69, E78.5) Hyperlipidemia associated with type 2 diabetes mellitus (HCC) (HCC) (I12.9, N18.32) Hypertensive kidney disease with stage 3b chronic kidney disease (HCC) (E11.22, N18.30) CKD stage 3 due to type 2 diabetes mellitus (HCC) (E11.9) Diabetes mellitus, non-insulin dependent (NIDDM or type II) (HCC) (D50.9) Iron deficiency anemia, unspecified iron deficiency anemia type (D72.829) Leukocytosis, unspecified type BP elevated Continue lisinopril/HCTZ 20/25 mg daily and amlodipine 5 mg daily Continue glipizide, pioglitazone, and metformin daily for diabetes Continue pravastatin 20 mg daily for hyperlipidemia Continue trazodone as needed for sleep Reviewed last labs to check CBC, BMP, A1c, lipid panel in 6 months MD Bela Sanchez, Migdalia Archibald MD 09/13/2024 10:27 AM Signed Screening schedule The following prevention plan is recommended: Depression Screening Never done Anxiety Screening Never done DTaP,Tdap,Td Vaccine(1 - Tdap) Never done RSV Vaccine(1 - 1-dose 75+ series) Never done Colorectal Cancer Screening due on 06/15/2012 Shingrix Vaccine(2 of 3) due on 03/19/2015 Diabetic Foot Exam due on 10/23/2023 Advance Directive Discussion due on 11/14/2023 WHAT YOU CAN DO TO PREVENT FALLS Many falls can be prevented. By making some changes, you (more content not included)... Normal [facility] Arti 08-21-2024 CNPN Telephone ([facility]) YUSUF MEDINA ([id number]) 1935 F [place] Date Time Provider Department 08/21/24 MIGDALIA CRAMER [facility] During your visit today, we recorded the following information about you: Perla Cramer 08/21/2024 10:12 AM Signed Patients sister in law called and wanted to discuss the results of the labs. Willie Kaur APRN.CNP 08/21/2024 4:19 PM Signed Please let her know that Dr. Cramer is currently evaluating the lab results and will reach out to her as soon as he is able. He is currently out of the office. Willie APRN.Agustina Blackman 08/22/2024 8:09 AM Signed Patients sister in law has been informed. Thank you Allergies As of Date: 08/21/2024 (No Known Allergies) Date Reviewed: 08/14/2024 Reviewed by: Sandrita Christianson LPN - Fully Assessed Reason for Visit: Results [95] Prescriptions as of 08/24/2024 - blood sugar diagnostic (ONETOUCH ULTRA TEST) test strip Test blood sugar once daily - traZODone (DESYREL) 50 mg tablet Take 1 tablet by mouth at bedtime as needed for sedation. - glipiZIDE (GLUCOTROL XL) 2.5 mg 24 hr tablet TAKE 1 TABLET BY MOUTH ONCE DAILY - lisinopril-hydroCHLORO thiazide (ZESTORETIC) 20-25 mg per tablet Take 1 tablet by mouth once daily. - lisinopril-hydroCHLORO thiazide (ZESTORETIC) 20-25 mg per tablet Take 1 tablet by mouth once daily for 7 days. SHORT TERM WHILE MAIL ORDER BEING SHIPPED - pioglitazone (ACTOS) 45 mg tablet Take 1 tablet by mouth once daily. - pravastatin (PRAVACHOL) 20 mg tablet Take 1 tablet by mouth once daily. - lansoprazole (PREVACID) 30 mg capsule Take 1 capsule by mouth once daily. - amLODIPine (NORVASC) 5 mg tablet TAKE 1 TABLET BY MOUTH ONCE DAILY - metFORMIN (GLUCOPHAGE) 850 mg tablet Take 1 tablet by mouth two times a day with meals. - meloxicam (MOBIC) 15 mg tablet Take 1 tablet by mouth once daily as needed for pain. DO NOT COMBINE WITH DICLOFENAC GEL - diclofenac (VOLTAREN) 1 % topical gel Apply 2 g to affected area four times daily as needed. Meds Comments as of 03/30/2022: 03/30/22 The medications are managed by this patient by: CAREGIVER José Miguel Swanson [facility] Problem List As Of Date 08/21/2024 Noted Resolved Osteoarth NOS-other site [M19.90] 09/15/2011 BENIGN HYPERTENSION [I10] 12/01/2016 Diabetes mellitus without mention of complicati*04/10/2003 05/24/2011 Esophageal reflux [K21.9] 06/15/2006 Lumbago [M54.50] 05/31/2007 09/15/2011 Urgency of urination [R39.15] 10/12/2007 09/15/2011 Urge incontinence [N39.41] 10/12/2007 12/01/2016 Other functional disorder of bladder [N31.8] 10/12/2007 09/15/2011 Retention of urine, unspecified [R33.9] 10/12/2007 12/01/2016 Postmenopausal atrophic vaginitis [N95.2] 10/12/2007 05/11/2016 Urinary frequency [R35.0] 01/11/2008 09/15/2011 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] 04/18/2008 09/15/2011 Vertigo of central origin [H81.4] 01/08/2010 09/15/2011 Peripheral vertigo, unspecified [H81.399] 01/08/2010 09/15/2011 Diabetes Mellitus Type II, Uncontrolled; 1999 [*02/22/2010 12/01/2016 Degenerative arthritis of hip [M16.9] 10/31/2010 09/23/2014 Pain in joint, pelvic region and thigh [M25.559]10/31/2010 09/15/2011 Thoracic or lumbosacral neuritis or radiculitis*10/31/2010 09/15/2011 Lumbosacral spondylosis without myelopathy [M47*10/31/2010 09/15/2011 Degeneration of lumbar or lumbosacral intervert*10/31/2010 Osteoarth NOS-pelvis [M16.10] 11/16/2010 09/15/2011 Hyperlipidemia [E78.5] 02/19/2011 02/12/2014 Gait disturbance [R26.9] 05/20/2011 05/11/2016 Hip arthritis [M16.10] 05/20/2011 Diabetes mellitus type 2, controlled, without c*05/24/2011 05/11/2016 Renal dysfunction [N28.9] 03/07/2017 Varicose veins of lower extremities with other *09/27/2011 Osteoarthritis of ankle or foot, right [M19.071]10/19/2011 12/07/2017 Cervicalgia [M54.2] 07/17/2013 05/11/2016 Pain in joint, shoulder region [M25.519] 07/17/2013 09/23/2014 Dyslipidemia [E78.5] 02/12/2014 Shoulder arthritis [M19.019] 08/06/2014 Rotator cuff (capsule) sprain [S43.429A] 08/06/2014 03/07/2017 Lumbosacral radiculitis [M54.17] 02/21/2015 12/07/2017 Lumbar canal stenosis [M48.061] 02/21/2015 Intractable low back pain [M54.59] 08/25/2015 12/01/2016 Acute renal failure (ARF) (HCC) [N17.9] 08/24/2015 08/29/2015 Unable to ambulate [R26.2] 08/27/2015 05/11/2016 Constipation [K59.00] 08/28/2015 05/11/2016 Sacroiliitis (HCC) [M46.1] 10/28/2015 12/07/2017 Type 2 diabetes mellitus without complication (*03/12/2016 03/07/2017 CKD (chronic kidney disease) [N18.9] 05/11/2016 03/07/2017 Essential hypertension [I10] 12/01/2016 Hyperlipidemia associated with type 2 diabetes *03/07/2017 CKD stage 3 due to type 2 diabetes mellitus (HC*03/07/2017 Diabetes mellitus, non-insulin dependent (NIDDM*03/07/2017 Primary insomnia [F51.01] 05/25/2017 Plantar fasciitis [M72.2] 05/25/2017 12/07/2017 Cervic (more content not included)... Normal [facility] ALBUMIN/CREATININE RATIO, UR INEon 08-14-2024 Albumin DL <= 20 mg/L (U) [Mass/Vol] 387.7 mg/L Normal [facility] Comment on above: Order Comment: Speci men Type: URINE SPECIMEN Ordering Facility: [facility] Address: [address] [place] [address] Performed By: #### U ACR, 2888-6 #### [facility] CLIA [id number] [address] [place] [address] [place] Albumin/Creatinine (U) [Mass ratio] 483 mg/g High <30 [facility] Comment on above: Order Comment: Speci men Type: URINE SPECIMEN Ordering Facility: [facility] Address: [address] [place] [address] Result Comment: Adul t Male and Female Nephrotic Criteria: <30 mg/g is considered normal to mildly increased 30-300 mg/g is considered moderately increased >300 mg/g is considered severely increased KDIGO. (2013). KDIGO 2012 Clinical Practice Guideline for the Evaluation and Management of Chronic Kidney Disease. Official Journal of the International Society of Nephrology, 3(1), 1-150. Performed By: #### U ACR, 2888-6 #### [facility] CLIA [id number] [address] [place] [address] [place] Creatinine (U) [Mass/Vol] 80.2 mg/dL Normal 20.0-300.0 [facility] Comment on above: Order Comment: Speci men Type: URINE SPECIMEN Ordering Facility: [facility] Address: [address] [place] [address] Performed By: #### U ACR, 2888-6 #### [facility] CLIA [id number] [address] [place] [address] [place] Bacteria Ur Culton 4 Bacteria identified Cx Nom (U) ORGANISM ID: 1 >=100,000 CFU/ml Mixed microbiota No further workup. Mixed microbiota can be due to???urine???contamina tion with skin bacteria at time of collection or presence of a long-term urinary catheter. If a new culture is needed, please consider re-education of the patient on proper midstream collection technique or straight catheterization for???urine???collecti on. Normal [facility] Comment on above: Performed By: #### 6 30-4 ####[facility] [id number] [place] [address] [place] Basic metabolic 2000 panelon 08-14-2024 Anion gap [Moles/Vol] 13 mmol/L Normal 8-15 [facility] Comment on above: Order Comment: Speci men Type: BLOOD SPECIMEN Ordering Facility: [facility] Address: [address] [place] [address] Performed By: #### 2 276-4, 2132-9, 31692-9, 4-8 #### [facility] CLIA [id number] [address] [place] [address] [place] Calcium [Mass/Vol] 9.9 mg/dL Normal 8.5-10.2 [facility] Comment on above: Order Comment: Speci men Type: BLOOD SPECIMEN Ordering Facility: [facility] Address: [address] [place] [address] Performed By: #### 2 276-4, 2132-9, 77452-4, 2284-8 #### [facility] CLIA [id number] [address] [place] [address] [place] Chloride [Moles/Vol] 96 mmol/L Low 98-107 [facility] Comment on above: Order Comment: Speci men Type: BLOOD SPECIMEN Ordering Facility: [facility] Address: [address] [place] [address] Performed By: #### 2 276-4, 2132-9, 25511-4, 2284-8 #### [facility] CLIA [id number] [address] [place] [address] [place] CO2 [Moles/Vol] 24 mmol/L Normal 22-30 [facility] Comment on above: Order Comment: Speci men Type: BLOOD SPECIMEN Ordering Facility: [facility] Address: [address] [place] [address] Performed By: #### 2 276-4, 2-9, 50726-0, 2284-8 #### [facility] CLIA [id number] [address] [place] [address] [place] Creatinine [Mass/Vol] 0.89 mg/dL Normal 0.58-0.96 [facility] Comment on above: Order Comment: Speci men Type: BLOOD SPECIMEN Ordering Facility: [facility] Address: [address] [place] [address] Performed By: #### 2 276-4, 2-9, 80426-9, 2284-8 #### [facility] CLIA [id number] [address] [place] [address] [place] Creatinine and Glomerular filtration rate.predicted panel (S/P/Bld) 62 mL/min/1.73m??? Normal >=60 [facility] Comment on above: Order Comment: Speci men Type: BLOOD SPECIMEN Ordering Facility: [facility] Address: [address] [place] [address] Result Comment: Hilda mated Glomerular Filtration Rate (eGFR) is calculated using the 2020 CKD-EPI creatinine equation. This equation utilizes serum creatinine, sex, and age as parameters. The creatinine assay has traceable calibration to isotope dilution-mass spectrometry. Refer to KDIGO guidelines for clinical interpretation. In patients with unstable renal function, e.g. those with acute kidney injury, the eGFR may not accurately reflect actual GFR. Performed By: #### 2 276-4, 2131-9, 37560-6, 8 #### [facility] CLIA [id number] [address] [place] [address] [place] Glucose [Mass/Vol] 245 mg/dL High 74-99 [facility] Comment on above: Order Comment: Fan meade Type: BLOOD SPECIMEN Ordering Facility: [facility] Address: [address] [place] [address] Result Comment: The [place] Diabetes Association (ADA) provides guidance for cutoff values for fasting glucose and random glucose. The ADA defines fasting as no caloric intake for at least 8 hours. Fasting plasma glucose results between 100 to 125 mg/dL indicate increased risk for diabetes (prediabetes). Fasting plasma glucose results greater than or equal to 126 mg/dL meet the criteria for diagnosis of diabetes. In the absence of unequivocal hyperglycemia, results should be confirmed by repeat testing. In a patient with classic symptoms of hyperglycemia or hyperglycemic crisis, random plasma glucose results greater than or equal to 200 mg/dL meet the criteria for diagnosis of diabetes. Reference: Standards of Medical Care in Diabetes 2016, [place] Diabetes Association. Diabetes Care. 2016.39(Suppl 1). Performed By: #### 2 276-4, 9, 95487-7, 2284-06 #### [facility] CLIA [id number] [address] [place] [address] [place] Potassium [Moles/Vol] 4.9 mmol/L Normal 3.7-5.1 [facility] Comment on above: Order Comment: Fna meade Type: BLOOD SPECIMEN Ordering Facility: [facility] Address: [address] [place] [address] Performed By: #### 2 276-4, 9, 34670-0, 8 #### [facility] CLIA [id number] [address] [place] [address] [place] Sodium [Moles/Vol] 133 mmol/L Low 136-144 [facility] Comment on above: Order Comment: Speci men Type: BLOOD SPECIMEN Ordering Facility: [facility] Address: [address] [place] [address] Performed By: #### 2 276-4, 2131-9, 17571-1, 2283-8 #### [facility] CLIA [id number] [address] [place] [address] [place] Urea nitrogen [Mass/Vol] 29 mg/dL High 7-21 [facility] Comment on above: Order Comment: Speci men Type: BLOOD SPECIMEN Ordering Facility: [facility] Address: [address] [place] [address] Performed By: #### 2 276-4, 2131-9, 40960-3, 8 #### [facility] CLIA [id number] [address] [place] [address] [place] CBC W Ordered Manual Differe ntial panel (Bld)on 08-14-2024 Basophils (Bld) [#/Vol] 0.05 10*3/uL Normal <0.11 [facility] Comment on above: Order Comment: Speci men Type: BLOOD SPECIMEN Ordering Facility: [facility] Address: [address] [place] [address] Performed By: #### 2 276-4, 2131-9, 95598-9, 8 #### [facility] CLIA [id number] [address] [place] [address] [place] Basophils/100 WBC (Bld) 0.4 % Normal C [facility] Comment on above: Order Comment: Speci men Type: BLOOD SPECIMEN Ordering Facility: [facility] Address: [address] [place] [address] Performed By: #### 2 276-4, 2131-9, 17069-5, 2283-8 #### [facility] CLIA [id number] [address] [place] [address] [place] Differential cell count method Nom (Bld) Auto Normal [facility] Comment on above: Order Comment: Speci men Type: BLOOD SPECIMEN Ordering Facility: [facility] Address: [address] [place] [address] Performed By: #### 2 276-4, 2131-9, 45324-9, 2283-8 #### [facility] CLIA [id number] [address] [place] [address] [place] Eosinophils (Bld) [#/Vol] 0.04 10*3/uL Normal <0.46 [facility] Comment on above: Order Comment: Speci men Type: BLOOD SPECIMEN Ordering Facility: [facility] Address: [address] [place] [address] Performed By: #### 2 276-4, 2131-9, 92824-0, 2283-8 #### [facility] CLIA [id number] [address] [place] [address] [place] Eosinophils/100 WBC (Bld) 0.3 % Normal [facility] Comment on above: Order Comment: Speci men Type: BLOOD SPECIMEN Ordering Facility: [facility] Address: [address] [place] [address] Performed By: #### 2 276-4, 2131-9, 37768-4, 2283-8 #### [facility] CLIA [id number] [address] [place] [address] [place] Erythrocyte distribution width (RBC) [Ratio] 14.9 % Normal 11.5-15.0 [facility] Comment on above: Order Comment: Speci men Type: BLOOD SPECIMEN Ordering Facility: [facility] Address: [address] [place] [address] Performed By: #### 2 276-4, 2131-9, 67356-1, 2283-8 #### [facility] CLIA [id number] [address] [place] [address] [place] Hematocrit (Bld) [Volume fraction] 35.2 % Low 36.0-46.0 [facility] Comment on above: Order Comment: Speci men Type: BLOOD SPECIMEN Ordering Facility: [facility] Address: [address] [place] [address] Performed By: #### 2 276-4, 2131-9, 67594-5, 2283-8 #### [facility] CLIA [id number] [address] [place] [address] [place] Hemoglobin (Bld) [Mass/Vol] 11.2 g/dL Low 11.5-15.5 [facility] Comment on above: Order Comment: Speci men Type: BLOOD SPECIMEN Ordering Facility: [facility] Address: [address] [place] [address] Performed By: #### 2 276-4, 2131-9, 86663-4, 8 #### [facility] CLIA [id number] [address] [place] [address] [place] Immature granulocytes (Bld) [#/Vol] 0.06 10*3/uL Normal <0.10 [facility] Comment on above: Order Comment: Speci men Type: BLOOD SPECIMEN Ordering Facility: [facility] Address: [address] [place] [address] Performed By: #### 2 276-4, 2131-9, 83890-0, 8 #### [facility] CLIA [id number] [address] [place] [address] [place] Immature granulocytes/100 WBC (Bld) 0.5 % Normal [facility] Comment on above: Order Comment: Speci men Type: BLOOD SPECIMEN Ordering Facility: [facility] Address: [address] [place] [address] Performed By: #### 2 276-4, 2131-9, 16254-5, 2283-8 #### [facility] CLIA [id number] [address] [place] [address] [place] Lymphocytes (Bld) [#/Vol] 1.40 10*3/uL Normal 1.00-4.00 [facility] Comment on above: Order Comment: Speci men Type: BLOOD SPECIMEN Ordering Facility: [facility] Address: [address] [place] [address] Performed By: #### 2 276-4, 2131-9, 03809-7, 2283-8 #### [facility] CLIA [id number] [address] [place] [address] [place] Lymphocytes/100 WBC (Bld) 11.3 % Normal [facility] Comment on above: Order Comment: Speci men Type: BLOOD SPECIMEN Ordering Facility: [facility] Address: [address] [place] [address] Performed By: #### 2 276-4, 9, 05019-4, 2283-8 #### [facility] CLIA [id number] [address] [place] [address] [place] MCH (RBC) [Entitic mass] 28.4 pg Normal 26.0-34.0 [facility] Comment on above: Order Comment: Speci men Type: BLOOD SPECIMEN Ordering Facility: [facility] Address: [address] [place] [address] Performed By: #### 2 276-4, 2131-9, 19347-2, 2283-8 #### [facility] CLIA [id number] [address] [place] [address] [place] MCHC (RBC) [Mass/Vol] 31.8 g/dL Normal 30.5-36.0 [facility] Comment on above: Order Comment: Speci men Type: BLOOD SPECIMEN Ordering Facility: [facility] Address: [address] [place] [address] Performed By: #### 2 276-4, 2131-9, 74004-8, 2283-8 #### [facility] CLIA [id number] [address] [place], [place] [id number] [place] MCV (RBC) [Entitic vol] 89.3 fL Normal 80.0-100.0 [facility] Comment on above: Order Comment: Speci men Type: BLOOD SPECIMEN Ordering Facility: [facility] Address: [address] [place] [address] Performed By: #### 2 276-4, 2131-9, 29674-0, 8 #### [facility] CLIA [id number] [address] [place] [address] [place] Monocytes (Bld) [#/Vol] 0.83 10*3/uL Normal <0.87 [facility] Comment on above: Order Comment: Speci men Type: BLOOD SPECIMEN Ordering Facility: [facility] Address: [address] [place] [address] Performed By: #### 2 276-4, 2131-9, 02230-9, 8 #### [facility] CLIA [id number] [address] [place] [address] [place] Monocytes/100 WBC (Bld) 6.7 % Normal C [facility] Comment on above: Order Comment: Speci men Type: BLOOD SPECIMEN Ordering Facility: [facility] Address: [address] [place] [address] Performed By: #### 2 276-4, 2131-9, 01377-6, 8 #### [facility] CLIA [id number] [address] [place], [place] [address] [place] Neutrophils (Bld) [#/Vol] 10.03 10*3/uL High 1.45-7.50 [facility] Comment on above: Order Comment: Speci men Type: BLOOD SPECIMEN Ordering Facility: [facility] Address: [address] [place] [address] Performed By: #### 2 276-4, 2131-9, 07979-8, 2284-06 #### [facility] CLIA [id number] [address] [place], [place] [address] [place] Neutrophils/100 WBC (Bld) 80.8 % Normal [facility] Comment on above: Order Comment: Speci men Type: BLOOD SPECIMEN Ordering Facility: [facility] Address: [address] [place] [address] Performed By: #### 2 276-4, 9, 05439-3, 2284-06 #### [facility] CLIA [id number] [address] [place], [place] [address] [place] Nucleated RBC (Bld) [#/Vol] 10*3/uL Normal <0.01 [facility] Comment on above: Order Comment: Speci men Type: BLOOD SPECIMEN Ordering Facility: [facility] Address: [address] [place] [address] Performed By: #### 2 276-4, 9, 68728-2, 2284-06 #### [facility] CLIA [id number] [address] [place] [address] [place] Nucleated RBC/100 WBC (Bld) [Ratio] 0.0 /100 WBC Normal [facility] Comment on above: Order Comment: Speci men Type: BLOOD SPECIMEN Ordering Facility: [facility] Address: [address] [place] [address] Performed By: #### 2 276-4, 9, 72103-8, 2284-06 #### [facility] CLIA [id number] [address] [place] [address] [place] Platelet mean volume (Bld) [Entitic vol] 10.2 fL Normal 9.0-12.7 [facility] Comment on above: Order Comment: Speci men Type: BLOOD SPECIMEN Ordering Facility: [facility] Address: [address] [place] [address] Performed By: #### 2 276-4, 2131-9, 84950-3, 2283-8 #### [facility] CLIA [id number] [address] [place] [address] [place] Platelets (Bld) [#/Vol] 330 10*3/uL Normal 150-400 [facility] Comment on above: Order Comment: Speci men Type: BLOOD SPECIMEN Ordering Facility: [facility] Address: [address] [place] [address] Performed By: #### 2 276-4, 2-9, 20507-2, 2284-8 #### [facility] CLIA [id number] [address] [place] [address] [place] RBC (Bld) [#/Vol] 3.94 10*6/uL Normal 3.90-5.20 [facility] Comment on above: Order Comment: Speci men Type: BLOOD SPECIMEN Ordering Facility: [facility] Address: [address] [place] [address] Performed By: #### 2 276-4, 2132-9, 84227-6, 4-8 #### [facility] CLIA [id number] [address] [place] [address] [place] WBC (Bld) [#/Vol] 12.41 10*3/uL High 3.70-11.00 [facility] Comment on above: Order Comment: Speci men Type: BLOOD SPECIMEN Ordering Facility: [facility] Address: [address] [place] [address] Performed By: #### 2 276-4, 2132-9, 99436-7, 2284-8 #### [facility] CLIA [id number] [address] [place] [address] [place] CNOVon 08-14-2024 CNOV Office Visit ([facility] ) YUSUF MEDINA ([id number]) 1935 F [place] Date Time Provider Department 08/14/24 10:40 AM MIGDALIA CRAMER [facility] During your visit today, we recorded the following information about you: Temperature Pulse Blood pressure Weight 97.6 degrees 91/minute 125/68 51.1 kg Migdalia Cramer MD 08/14/2024 1:57 PM Signed Yusuf Medina is a 88 year old female Patient presents with: Hospital Follow Up Here for ER follow up 08/13/24 ED for weakness and feeling shaky. During assessment, patient indicated that she was feeling better and wanted to go home. Daughter encouraged her to stay for work up. Daughter indicated that Yusuf may have taken both AM and PM medications together by accident. Discussed strategy to prevent this. XR negative for PNA Na 134, Cl 96, BUN 29, GFR 64, creatinine 0.87 H/H 10.9/33.5 mildly low and similar to 2021 Leucocytosis 17.15 UA 1+ protein but otherwise WNL ER to hospital admission 03/07/24 for shoulder and hip pain and leucocytosis. Suspected inflammatory vs infectious process. Rheumatology consult with XR that indicated wrists and knees showed chondrocalcinosis, advised tap of wrists to evaluate for CPPD, which she declined. Lives alone 1-2 family members check in on her 1-3 times daily Family will call her when it is time to take her pills. Family suspects that she can occasionally take her morning and evening pills together. Family has decided to set up her pill box and call her to tell her when to take her mediations. Today patient indicates she feels the same as usual. Intermittent headaches, trouble staying asleep, urinary frequency, generalized weakness, arthralgia. Family thinks her pain, weakness, arthralgia, and trouble staying asleep are gradually worsening. SHAY's. Started years ago, intermittent, unchanged. Not changed by position or bearing down. Alleviating: laying down, closing her eyes. - nausea, - vomiting, - vision changes, + photophobia, - phonophobia. Trouble staying asleep. Family asking for medicine to help sleeping. Melatonin not helpful. PRN Trazodone 2013, wants to try again. Urinary frequency, nocturia x 3 per night, incontinence. This is not new. I advised STOPPING hydrochlorothiazide and INCREASING dose lisinopril but patient declines. Indicates urinary issues are not a problem. Weakness generalized started years ago, patient thinks this is unchanged, family thinks this is gradually worsening over a long period of time. No cough, fever, chills, orthopnea, nausea, vomiting DM Actos 45 mg once daily Glipizide 2.5 mg once daily Metformin 850 mg twice daily 07/11/24 A1C 8.2 Fasting blood sugars 100-110 HTN Lisinopril-hydrochloro thiazide 20/25 mg once daily Norvasc 5 mg once daily 08/13/24 Creatinine 0.87 HPL Pravastatin 20 mg once daily 07/11/24 LDL 71 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/25/2017 CKD (chronic kidney disease) 05/11/2016 Essential hypertension, benign Hyperlipidemia LDL goal < 100 02/12/2014 Intractable low back pain 08/25/2015 Osteoarthrosis, unspecified whether generalized or localized, other specified sites Left hip Plantar fasciitis 05/25/2017 Primary insomnia 05/25/2017 Renal dysfunction Type II or unspecified type diabetes mellitus without mention of complication, not stated as uncontrolled Social History Tobacco Use Smoking status: Never Smokeless tobacco: Never Substance Use Topics Alcohol use: No Drug use: No Current Outpatient Medications on File Prior to Visit Medication Sig glipiZIDE (GLUCOTROL XL) 2.5 mg 24 hr tablet TAKE 1 TABLET BY MOUTH ONCE DAILY lisinopril-hydroCHLORO thiazide (ZESTORETIC) 20-25 mg per tablet Take 1 tablet by mouth once daily. pioglitazone (ACTOS) 45 mg tablet Take 1 tablet by mouth once daily. pravastatin (PRAVACHOL) 20 mg tablet Take 1 tablet by mouth once daily. lansoprazole (PREVACID) 30 mg capsule Take 1 capsule by mouth once daily. amLODIPine (NORVASC) 5 mg tablet TAKE 1 TABLET BY MOUTH ONCE DAILY metFORMIN (GLUCOPHAGE) 850 mg tablet Take 1 tablet by mouth two times a day with meals. meloxicam (MOBIC) 15 mg tablet Take 1 tablet by mouth once daily as needed for pain. DO NOT COMBINE WITH DICLOFENAC GEL blood sugar diagnostic (Giant SwarmTOUCH ULTRA TEST) test strip Test blood sugar once daily lisinopril-hydroCHLORO thiazide (ZESTORETIC) 20-25 mg per tablet Take 1 tablet by mouth once daily for 7 days. SHORT TERM WHILE MAIL ORDER BEING SHIPPED diclofenac (VOLTAREN) 1 % topical gel Apply 2 g to affected area four times daily as needed. No current facility-administered medications on file prior to visit. Patient has no known allergies. Physical Exam: BP 125/68 Pulse 91 Temp 36.4 ?C (97.6 ?F) (Temporal) Wt 51.1 kg (112 lb 10.5 oz) SpO2 96% BMI 22.00 kg/m? GEN: Pleasant female in no acute (more content not included)... Normal [facility] CRP SerPl-mCncon 08-14-2024 CRP [Mass/Vol] 7.8 mg/dL High <0.9 [facility] Comment on above: Order Comment: Speci men Type: BLOOD SPECIMEN Ordering Facility: [facility] Address: [address] [place] [address] Performed By: #### 2 276-4, 21319, 37228-7, 2283-8 #### [facility] CLIA [id number] [address] [place] [address] [place] ESR Westergren method (Bld) [Velocity]on 08-14-2024 ESR (Bld) [Velocity] 40 mm/h High 0-20 [facility] Comment on above: Order Comment: Fan men Type: BLOOD SPECIMEN Ordering Facility: [facility] Address: [address] [place] [address] Performed By: #### 2 276-4, 2131-9, 60412-1, 2283-8 #### [facility] CLIA [id number] [address] [place] [address] [place] HbA1c (Bld)on 08-14-2024 Average glucose Estimated from glycated hemoglobin (Bld) [Mass/Vol] 197 mg/dL Normal [facility] Comment on above: Order Comment: Katei men Type: BLOOD SPECIMEN Ordering Facility: [facility] Address: [address] [place] [address] Result Comment: eAG: (Estimated average glucose) is a calculated value from HgbA1c and is retail wireless sales representative of the average blood glucose level in the last 2-3 month period. Performed By: #### 2 276-4, 2131-9, 46580-2, 8 #### [facility] CLIA [id number] [address] [place], [place] [address] [place] HbA1c (Bld) [Mass fraction] 8.5 % High 4.3-5.6 [facility] Comment on above: Order Comment: Speci men Type: BLOOD SPECIMEN Ordering Facility: [facility] Address: [address] [place] [address] Result Comment: Amer [place] Diabetes Association guidelines indicate that patients with HgbA1c in the range 5.7-6.4% are at increased risk for development of diabetes, and intervention by lifestyle modification may be beneficial. HgbA1c greater or equal to 6.5% is considered diagnostic of diabetes. Performed By: #### 2 276-4, 2131-9, 84767-2, 8 #### [facility] CLIA [id number] [address] [place], [place] [address] [place] PATHOLOGIST INTERPRETATION C BC/DIFFon 08-14-2024 Strike Out Machine Operator review Mckay (Unsp spec) [Interp] No review performed. Normal [facility] Comment on above: Order Comment: Speci men Type: BLOOD SPECIMEN Ordering Facility: [facility] Address: [address] [place] [address] Performed By: #### 2 276-4, 2131-9, 86057-8, 8 #### [facility] CLIA [id number] [address] [place], [place] [address] [place] STAFF REVIEW, CBCDIF Normal [facility] Comment on above: Order Comment: Speci men Type: BLOOD SPECIMEN Ordering Facility: [facility] Address: [address] [place] [address] Result Comment: The Pathologist Interpretation on this sample was cancelled because the hematology analyzer did not flag any parameters as requiring manual review. If there is a specific clinical concern for which you would like a pathologist to review the blood smear, please call Lab Client Services within 28 days. Performed By: #### 2 276-4, 2132-9, 57525-0, 2284-8 #### [facility] CLIA [id number] [address] [place] [address] [place] PROTEIN ELECTROPHORESIS SERU M (P)on 08-14-2024 Albumin [Mass/Vol] 3.80 g/dL Normal 3.43-5.41 [facility] Comment on above: Order Comment: Speci men Type: BLOOD SPECIMENOrdering Facility: [facility] Address: [address] [place] [address] Performed By: #### L [id number] ####[facility] [id number] [place] [address] [place] Alpha 1 globulin Elph [Mass/Vol] 0.46 g/dL High 0.18-0.43 [facility] Comment on above: Order Comment: Speci men Type: BLOOD SPECIMENOrdering Facility: [facility] Address: [address] [place] [address] Performed By: #### L [id number] ####[facility] [id number] [place] [address] [place] Alpha 2 globulin Elph [Mass/Vol] 1.03 g/dL High 0.42-0.98 [facility] Comment on above: Order Comment: Speci men Type: BLOOD SPECIMENOrdering Facility: [facility] Address: [address] [place] [address] Performed By: #### L [id number] ####[facility] [id number] [place] [address] [place] Beta globulin Elph [Mass/Vol] 0.84 g/dL Normal 0.61-1.17 [facility] Comment on above: Order Comment: Speci men Type: BLOOD SPECIMENOrdering Facility: [facility] Address: [address] [place] [address] Performed By: #### L [id number] ####[facility] [id number] [place] [address] [place] Gamma globulin Elph [Mass/Vol] 0.58 g/dL Normal 0.53-1.51 [facility] Comment on above: Order Comment: Speci men Type: BLOOD SPECIMENOrdering Facility: [facility] Address: [address] [place] [address] Performed By: #### L [id number] ####[facility] [id number] [place] [address] [place] INTERPRETATION COMMENT FOR PROTEIN ELECTROPHORESIS The atypical region is relatively poorly defined and may represent an unusual presentation of polyclonal immunoglobulins, but cannot rule out the presence of a low level M protein. If clinically indicated, monoclonal protein analysis and serum free light chain analysis are suggested to evaluate further for monoclonal gammopathy. Normal [facility] Comment on above: Order Comment: Speci men Type: BLOOD SPECIMENOrdering Facility: [facility] Address: [address] [place] [address] Performed By: #### L [id number] ####[facility] [id number] [place] [address] [place] M-PROTEIN LOCATION Normal [facility] Comment on above: Order Comment: Speci men Type: BLOOD SPECIMENOrdering Facility: [facility] Address: [address] [place] [address] Result Comment: Not Applicable. Performed By: #### L [id number] ####[facility] [id number] [place] [address] [place] Protein Fractions [Interp] An atypical region of restricted mobility is identified on protein electrophoresis. Abnormal No definitive M protein is identified on protein electrophore sis. [facility] Comment on above: Order Comment: Speci men Type: BLOOD SPECIMENOrdering Facility: [facility] Address: [address] [place] [address] Performed By: #### L [id number] ####[facility] [id number] [place] [address] [place] Protein.monoclonal Elph [Mass/Vol] 0.00 g/dL Normal <=0.00 [facility] Comment on above: Order Comment: Speci men Type: BLOOD SPECIMENOrdering Facility: [facility] Address: [address] [place] [address] Performed By: #### L [id number] ####[facility] [id number] [place] [address] [place] SPE STAFF REVIEW Reviewed by Tanisha Sanchez MD [facility] Comment on above: Order Comment: Speci men Type: BLOOD SPECIMENOrdering Facility: [facility] Address: [address] [place] [address] Performed By: #### L [id number] ####[facility] [id number] [place] [address] [place] Prot SerPl-mCncon 08-14-2024 Protein [Mass/Vol] 6.7 g/dL Normal 6.3-8.0 [facility] Comment on above: Order Comment: Speci men Type: BLOOD SPECIMEN Ordering Facility: [facility] Address: [address] [place] [address] Performed By: #### 2 276-4, 2132-9, 67787-7, 2284-8 #### [facility] CLIA [id number] [address] [place] [address] [place] Prot Ur-mCncon 08-14-2024 Protein (U) [Mass/Vol] 78 mg/dL High 0-20 [facility] Comment on above: Order Comment: Speci men Type: URINE SPECIMEN Ordering Facility: [facility] Address: [address] [place] [address] Performed By: #### U ACR, 2888-6 #### [facility] CLIA [id number] [address] [place] [address] [place] TSH SerPl-aCncon 08-14-2024 TSH Qn 1.120 m[IU]/L Normal 0.270-4.200 [facility] Comment on above: Order Comment: Speci men Type: BLOOD SPECIMEN Ordering Facility: [facility] Address: [address] [place] [address] Performed By: #### 2 276-4, 9, 40907-1, 2283-8 #### [facility] CLIA [id number] [address] [place] [address] [place] URINALYSIS, DIPSTICK ONLYon 08-14-2024 Bilirubin Ql (U) Negative Normal Negative [facility] Comment on above: Order Comment: Speci men Type: BLOOD SPECIMEN Ordering Facility: [facility] Address: [address] [place] [address] Performed By: #### 2 276-4, 2131-9, 76735-4, 2283-8 #### [facility] CLIA [id number] [address] [place] [address] [place] Clarity (Unsp spec) Clear Normal Clear [facility] Comment on above: Order Comment: Speci men Type: BLOOD SPECIMEN Ordering Facility: [facility] Address: [address] [place] [address] Performed By: #### 2 276-4, 2131-9, 74240-7, 228-8 #### [facility] CLIA [id number] [address] [place] [address] [place] Color (U) Yellow Normal Yellow [facility] Comment on above: Order Comment: Speci men Type: BLOOD SPECIMEN Ordering Facility: [facility] Address: [address] [place] [address] Performed By: #### 2 276-4, 9, 01201-0, 8 #### [facility] CLIA [id number] [address] [place] [address] [place] Glucose Test strip (U) [Mass/Vol] 1+ Abnormal Negative [facility] Comment on above: Order Comment: Speci men Type: BLOOD SPECIMEN Ordering Facility: [facility] Address: [address] [place] [address] Performed By: #### 2 276-4, 9, 22604-9, 2284-06 #### [facility] CLIA [id number] [address] [place] [address] [place] Hemoglobin Ql (U) Negative Normal Negative [facility] Comment on above: Order Comment: Speci men Type: BLOOD SPECIMEN Ordering Facility: [facility] Address: [address] [place] [address] Performed By: #### 2 276-4, 9, 27319-3, 2284-06 #### [facility] CLIA [id number] [address] [place] [address] [place] Ketones Ql (U) Negative Normal Negative [facility] Comment on above: Order Comment: Speci men Type: BLOOD SPECIMEN Ordering Facility: [facility] Address: [address] [place] [address] Performed By: #### 2 276-4, 9, 57170-4, 2284-06 #### [facility] CLIA [id number] [address] [place] [address] [place] Leukocyte esterase Test strip Ql (U) Negative Normal Negative [facility] Comment on above: Order Comment: Speci men Type: BLOOD SPECIMEN Ordering Facility: [facility] Address: [address] [place] [address] Performed By: #### 2 276-4, 9, 84930-2, 8 #### [facility] CLIA [id number] [address] [place] [address] [place] Nitrite Ql (U) Negative Normal Negative [facility] Comment on above: Order Comment: Speci men Type: BLOOD SPECIMEN Ordering Facility: [facility] Address: [address] [place] [address] Performed By: #### 2 276-4, 2131-9, 11001-0, 2283-8 #### [facility] CLIA [id number] [address] [place] [address] [place] pH (U) 6.5 [pH] Normal <8.5 [facility] Comment on above: Order Comment: Speci men Type: BLOOD SPECIMEN Ordering Facility: [facility] Address: [address] [place] [address] Performed By: #### 2 276-4, 2131-9, 01672-1, 2283-8 #### [facility] CLIA [id number] [address] [place] [address] [place] Protein (U) [Mass/Vol] 2+ Abnormal Negative [facility] Comment on above: Order Comment: Speci men Type: BLOOD SPECIMEN Ordering Facility: [facility] Address: [address] [place] [address] Performed By: #### 2 276-4, 2131-9, 22848-0, 2283-8 #### [facility] CLIA [id number] [address] [place] [address] [place] Specific gravity (U) [Rel density] 1.020 Normal 1.005-1.030 [facility] Comment on above: Order Comment: Speci men Type: BLOOD SPECIMEN Ordering Facility: [facility] Address: [address] [place] [address] Performed By: #### 2 276-4, 2131-9, 48365-4, 2283-8 #### [facility] CLIA [id number] [address] [place] [address] [place] Urobilinogen Ql (U) 1.0 EU/dL Normal 0.2-1.0 EU/dL [facility] [facility] Comment on above: Order Comment: Speci men Type: BLOOD SPECIMEN Ordering Facility: [facility] Address: [address] [place] [address] Performed By: #### 2 276-4, 2132-9, 96322-5, 2284-8 #### [facility] CLIA [id number] [address] [place] [address] [place] URINE PROTEIN ELECTROPHORESI S RANDOM (P)on 08-14-2024 Albumin Elph (U) [Mass fraction] 69.11 % Normal [facility] Comment on above: Order Comment: Speci men Type: URINE SPECIMENOrdering Facility: [facility] Address: [address] [place] [address] Performed By: #### L [id number] ####[facility] [id number] [address] [place] Alpha 1 globulin Elph (U) [Mass fraction] 7.87 % Normal [facility] Comment on above: Order Comment: Speci men Type: URINE SPECIMENOrdering Facility: [facility] Address: [address] [place] [address] Performed By: #### L [id number] ####[facility] [id number] [place] [address] [place] Alpha 2 globulin Elph (U) [Mass fraction] 6.40 % Normal [facility] Comment on above: Order Comment: Speci men Type: URINE SPECIMENOrdering Facility: [facility] Address: [address] [place] [address] Performed By: #### L [id number] ####[facility] [id number] [place] [address] [place] Beta globulin Elph (U) [Mass fraction] 11.20 % Normal [facility] Comment on above: Order Comment: Speci men Type: URINE SPECIMENOrdering Facility: [facility] Address: [address] [place] [address] Performed By: #### L [id number] ####[facility] [id number] [address] [place] [facility] Gamma globulin Elph (U) [Mass fraction] 5.42 % Normal [facility] Comment on above: Order Comment: Speci men Type: URINE SPECIMENOrdering Facility: [facility] Address: [address] [place] [address] Performed By: #### L [id number] ####[facility] [id number] [address] Protein Fractions Elph Mckay (U) [Interp] No definitive M protein is identified on protein electrophoresis. Normal No definitive M protein is identified on protein electrophore sis. [facility] Comment on above: Order Comment: Speci men Type: URINE SPECIMENOrdering Facility: [facility] Address: [address] [place] [address] Performed By: #### L [id number] ####[facility] [id number] [address] STAFF REVIEW (URINE ELECTRO) Reviewed by Brianne Mosley M.D., Ph.D Normal [facility] Comment on above: Order Comment: Speci men Type: URINE SPECIMENOrdering Facility: [facility] Address: [address] [place] [address] Performed By: #### L [id number] ####[facility] [id number] [address] [place] ALLIED HEALTHon 08-13-2024 ALLIED HEALTH HNO ID: [id number] Author: TYESHA TERRELL RT(R) Service: Radiology Author Type: Technologist Type: Allied Health Filed: 08/13/2024 15:49 Note Text: Radiology Service Progress Note PATIENT NAME: Yusuf Medina DATE OF SERVICE: August 13, 2024 TIME: 3:49 PM PATIENT IDENTITY VERIFICATION COMPLETED USING TWO (2) IDENTIFIERS: Name and Date of confirmed by identification band and Name and Date of obtained from a relative, guardian or prior caregiver.. FALL SCREENING: Has the patient had 2 falls in the last year or 1 fall with injury or currently using an Ambulatory Assistive Device (Walker, Cane, Wheelchair, Crutches, etc.)? Emergency Room Patient: Screened in ED PATIENT GENDER DATA: Female. status: : No status: NO. PATIENT RELEVANT IMPLANT DATA REVIEWED: Not Applicable PATIENT PRESENTS WITH AN IMPLANTABLE OR ATTACHED CIGARETTE MACHINES MECHANIC: No RADIOLOGY DEPARTMENT: General X-ray: Exam(s) Completed: Chest X-Ray PERIPHERAL IV DATA: Not applicable SIGNED BY: Tyesha Terrell RT(R) August 13, 2024 3:49 PM Normal [facility] CBC W Auto Differential pane l (Bld)on 08-13-2024 Basophils (Bld) [#/Vol] 0.03 10*3/uL Normal <0.11 [facility] Comment on above: Order Comment: Speci men Type: URINE SPECIMEN Ordering Facility: [facility] Address: [address] [place] [address] Performed By: #### U ACR, 2888-6 #### [facility] CLIA [id number] [address] [place] [address] [place] Basophils/100 WBC (Bld) 0.2 % Normal [facility] Comment on above: Order Comment: Speci men Type: URINE SPECIMEN Ordering Facility: [facility] Address: [address] [place] [address] Performed By: #### U ACR, 2888-6 #### [facility] CLIA [id number] [address] [place] [address] [place] Differential cell count method Nom (Bld) Auto Normal [facility] Comment on above: Order Comment: Speci men Type: URINE SPECIMEN Ordering Facility: [facility] Address: [address] [place] [address] Performed By: #### U ACR, 2888-04 #### [facility] CLIA [id number] [address] [place] [address] [place] Eosinophils (Bld) [#/Vol] 10*3/uL Normal <0.46 [facility] Comment on above: Order Comment: Speci men Type: URINE SPECIMEN Ordering Facility: [facility] Address: [address] [place] [address] Performed By: #### U ACR, 6 #### [facility] CLIA [id number] [address] [place] [address] [place] Eosinophils/100 WBC (Bld) 0.1 % Normal [facility] Comment on above: Order Comment: Speci men Type: URINE SPECIMEN Ordering Facility: [facility] Address: [address] [place] [address] Performed By: #### U ACR, 2888-04 #### [facility] CLIA [id number] [address] [place] [address] [place] Erythrocyte distribution width (RBC) [Ratio] 14.6 % Normal 11.5-15.0 [facility] Comment on above: Order Comment: Speci men Type: URINE SPECIMEN Ordering Facility: [facility] Address: [address] [place] [address] Performed By: #### U ACR, 2888-04 #### [facility] CLIA [id number] [address] [place] [address] [place] Hematocrit (Bld) [Volume fraction] 33.5 % Low 36.0-46.0 [facility] Comment on above: Order Comment: Speci men Type: URINE SPECIMEN Ordering Facility: [facility] Address: [address] [place] [address] Performed By: #### U ACR, 2888-04 #### [facility] CLIA [id number] [address] [place] [address] [place] Hemoglobin (Bld) [Mass/Vol] 10.9 g/dL Low 11.5-15.5 [facility] Comment on above: Order Comment: Speci men Type: URINE SPECIMEN Ordering Facility: [facility] Address: [address] [place] [address] Performed By: #### U ACR, 2888-6 #### [facility] CLIA [id number] [address] [place] [address] [place] Immature granulocytes (Bld) [#/Vol] 0.09 10*3/uL Normal <0.10 [facility] Comment on above: Order Comment: Speci men Type: URINE SPECIMEN Ordering Facility: [facility] Address: [address] [place] [address] Performed By: #### U ACR, 2888-6 #### [facility] CLIA [id number] [address] [place] [address] [place] Immature granulocytes/100 WBC (Bld) 0.5 % Normal [facility] Comment on above: Order Comment: Speci men Type: URINE SPECIMEN Ordering Facility: [facility] Address: [address] [place] [address] Performed By: #### U ACR, 2888-6 #### [facility] CLIA [id number] [address] [place] [address] [place] Lymphocytes (Bld) [#/Vol] 0.91 10*3/uL Low 1.00-4.00 [facility] Comment on above: Order Comment: Speci men Type: URINE SPECIMEN Ordering Facility: [facility] Address: [address] [place] [address] Performed By: #### U ACR, 2888-6 #### [facility] CLIA [id number] [address] [place] [address] [place] Lymphocytes/100 WBC (Bld) 5.3 % Normal [facility] Comment on above: Order Comment: Speci men Type: URINE SPECIMEN Ordering Facility: [facility] Address: [address] [place] [address] Performed By: #### U ACR, 2886 #### [facility] CLIA [id number] [address] [place] [address] [place] MCH (RBC) [Entitic mass] 28.6 pg Normal 26.0-34.0 [facility] Comment on above: Order Comment: Speci men Type: URINE SPECIMEN Ordering Facility: [facility] Address: [address] [place] [address] Performed By: #### U ACR, 2888-04 #### [facility] CLIA [id number] [address] [place] [address] [place] MCHC (RBC) [Mass/Vol] 32.5 g/dL Normal 30.5-36.0 [facility] Comment on above: Order Comment: Speci men Type: URINE SPECIMEN Ordering Facility: [facility] Address: [address] [place] [address] Performed By: #### U ACR, 2888-04 #### [facility] CLIA [id number] [address] [place] [address] [place] MCV (RBC) [Entitic vol] 87.9 fL Normal 80.0-100.0 [facility] Comment on above: Order Comment: Speci men Type: URINE SPECIMEN Ordering Facility: [facility] Address: [address] [place] [address] Performed By: #### U ACR, 2888-04 #### [facility] CLIA [id number] [address] [place] [address] [place] Monocytes (Bld) [#/Vol] 0.91 10*3/uL High <0.87 [facility] Comment on above: Order Comment: Speci men Type: URINE SPECIMEN Ordering Facility: [facility] Address: [address] [place] [address] Performed By: #### U ACR, 2887- #### [facility] CLIA [id number] [address] [place] [address] [place] Monocytes/100 WBC (Bld) 5.3 % Normal [facility] Comment on above: Order Comment: Speci men Type: URINE SPECIMEN Ordering Facility: [facility] Address: [address] [place] [address] Performed By: #### U ACR, 2888-6 #### [facility] CLIA [id number] [address] [place] [address] [place] Neutrophils (Bld) [#/Vol] 15.20 10*3/uL High 1.45-7.50 [facility] Comment on above: Order Comment: Speci men Type: URINE SPECIMEN Ordering Facility: [facility] Address: [address] [place] [address] Performed By: #### U ACR, 2888-6 #### [facility] CLIA [id number] [address] [place] [address] [place] Neutrophils/100 WBC (Bld) 88.6 % Normal [facility] Comment on above: Order Comment: Speci men Type: URINE SPECIMEN Ordering Facility: [facility] Address: [address] [place] [address] Performed By: #### U ACR, 2888-6 #### [facility] CLIA [id number] [address] [place] [address] [place] Nucleated RBC (Bld) [#/Vol] 10*3/uL Normal <0.01 [facility] Comment on above: Order Comment: Speci men Type: URINE SPECIMEN Ordering Facility: [facility] Address: [address] [place] [address] Performed By: #### U ACR, 2888-6 #### [facility] CLIA [id number] [address] [place] [address] [place] Nucleated RBC/100 WBC (Bld) [Ratio] 0.0 /100 WBC Normal [facility] Comment on above: Order Comment: Speci men Type: URINE SPECIMEN Ordering Facility: [facility] Address: [address] [place] [address] Performed By: #### U ACR, 2888-6 #### [facility] CLIA [id number] [address] [place] [address] [place] Platelet mean volume (Bld) [Entitic vol] 9.0 fL Normal 9.0-12.7 [facility] Comment on above: Order Comment: Speci men Type: URINE SPECIMEN Ordering Facility: [facility] Address: [address] [place] [address] Performed By: #### U ACR, 2888-6 #### [facility] CLIA [id number] [address] [place] [address] [place] Platelets (Bld) [#/Vol] 321 10*3/uL Normal 150-400 [facility] Comment on above: Order Comment: Speci men Type: URINE SPECIMEN Ordering Facility: [facility] Address: [address] [place] [address] Performed By: #### U ACR, 2888-6 #### [facility] CLIA [id number] [address] [place] [address] [place] RBC (Bld) [#/Vol] 3.81 10*6/uL Low 3.90-5.20 [facility] Comment on above: Order Comment: Speci men Type: URINE SPECIMEN Ordering Facility: [facility] Address: [address] [place] [address] Performed By: #### U ACR, 2888-6 #### [facility] CLIA [id number] [address] [place] [address] [place] WBC (Bld) [#/Vol] 17.15 10*3/uL High 3.70-11.00 [facility] Comment on above: Order Comment: Speci men Type: URINE SPECIMEN Ordering Facility: [facility] Address: [address] [place] [address] Performed By: #### U ACR, 2888-6 #### [facility] CLIA [id number] [address] [place] [address] [place] CK SerPl-cCncon 08-13-2024 CK [Catalytic activity/Vol] 56 U/L Normal 42-196 [facility] Comment on above: Order Comment: Speci men Type: BLOOD SPECIMEN Ordering Facility: [facility] Address: [address] [place] [address] Performed By: #### 2 276-4, 2131-9, 02144-5, 2283-8 #### [facility] CLIA [id number] [address] [place] [address] [place] Comprehensive metabolic 2000 panelon 08-13-2024 Albumin [Mass/Vol] 4.0 g/dL Normal 3.9-4.9 [facility] Comment on above: Order Comment: Speci men Type: BLOOD SPECIMEN Ordering Facility: [facility] Address: [address] [place] [address] Performed By: #### 2 276-4, 2131-9, 54128-7, 2283-8 #### [facility] CLIA [id number] [address] [place] [address] [place] ALP [Catalytic activity/Vol] 99 U/L Normal 34-123 [facility] Comment on above: Order Comment: Speci men Type: BLOOD SPECIMEN Ordering Facility: [facility] Address: [address] [place] [address] Performed By: #### 2 276-4, 2131-9, 02757-5, 2283-8 #### [facility] CLIA [id number] [address] [place] [address] [place] ALT [Catalytic activity/Vol] 15 U/L Normal 7-38 [facility] Comment on above: Order Comment: Speci men Type: BLOOD SPECIMEN Ordering Facility: [facility] Address: [address] [place] [address] Performed By: #### 2 276-4, 2131-9, 92397-5, 2284-8 #### [facility] CLIA [id number] [address] [place] [address] [place] Anion gap [Moles/Vol] 14 mmol/L Normal 8-15 [facility] Comment on above: Order Comment: Speci men Type: BLOOD SPECIMEN Ordering Facility: [facility] Address: [address] [place] [address] Performed By: #### 2 276-4, 2131-9, 41599-3, 228-8 #### [facility] CLIA [id number] [address] [place] [address] [place] AST [Catalytic activity/Vol] 18 U/L Normal 13-35 [facility] Comment on above: Order Comment: Speci men Type: BLOOD SPECIMEN Ordering Facility: [facility] Address: [address] [place] [address] Performed By: #### 2 276-4, 2131-9, 28985-1, 2284-8 #### [facility] CLIA [id number] [address] [place] [address] [place] Bilirubin [Mass/Vol] 0.2 mg/dL Normal 0.2-1.3 [facility] Comment on above: Order Comment: Speci men Type: BLOOD SPECIMEN Ordering Facility: [facility] Address: [address] [place] [address] Performed By: #### 2 276-4, 2131-9, 23694-0, 228-8 #### [facility] CLIA [id number] [address] [place] [address] [place] Calcium [Mass/Vol] 9.2 mg/dL Normal 8.5-10.2 [facility] Comment on above: Order Comment: Speci men Type: BLOOD SPECIMEN Ordering Facility: [facility] Address: [address] [place] [address] Performed By: #### 2 276-4, 2131-9, 24617-4, 2284-8 #### [facility] CLIA [id number] [address] [place] [address] [place] Chloride [Moles/Vol] 96 mmol/L Low 98-107 [facility] Comment on above: Order Comment: Speci men Type: BLOOD SPECIMEN Ordering Facility: [facility] Address: [address] [place] [address] Performed By: #### 2 276-4, 2131-9, 30981-4, 228-8 #### [facility] CLIA [id number] [address] [place] [address] [place] CO2 [Moles/Vol] 24 mmol/L Normal 22-30 [facility] Comment on above: Order Comment: Speci men Type: BLOOD SPECIMEN Ordering Facility: [facility] Address: [address] [place] [address] Performed By: #### 2 276-4, 2131-9, 59458-3, 4-8 #### [facility] CLIA [id number] [address] [place] [address] [place] Creatinine [Mass/Vol] 0.87 mg/dL Normal 0.58-0.96 [facility] Comment on above: Order Comment: Speci men Type: BLOOD SPECIMEN Ordering Facility: [facility] Address: [address] [place] [address] Performed By: #### 2 276-4, 2131-9, 77410-5, 228-8 #### [facility] CLIA [id number] [address] [place] [address] [place] Creatinine and Glomerular filtration rate.predicted panel (S/P/Bld) 64 mL/min/1.73m??? Normal >=60 [facility] Comment on above: Order Comment: Speci men Type: BLOOD SPECIMEN Ordering Facility: [facility] Address: [address] [place], [place] [address] Result Comment: Hilda mated Glomerular Filtration Rate (eGFR) is calculated using the 2020 CKD-EPI creatinine equation. This equation utilizes serum creatinine, sex, and age as parameters. The creatinine assay has traceable calibration to isotope dilution-mass spectrometry. Refer to KDIGO guidelines for clinical interpretation. In patients with unstable renal function, e.g. those with acute kidney injury, the eGFR may not accurately reflect actual GFR. Performed By: #### 2 276-4, 2131-9, 18083-6, 2284-06 #### [facility] CLIA [id number] [address] [place] [address] [place] Glucose [Mass/Vol] 212 mg/dL High 74-99 [facility] Comment on above: Order Comment: Fan meade Type: BLOOD SPECIMEN Ordering Facility: [facility] Address: [address] [place] [address] Result Comment: The [place] Diabetes Association (ADA) provides guidance for cutoff values for fasting glucose and random glucose. The ADA defines fasting as no caloric intake for at least 8 hours. Fasting plasma glucose results between 100 to 125 mg/dL indicate increased risk for diabetes (prediabetes). Fasting plasma glucose results greater than or equal to 126 mg/dL meet the criteria for diagnosis of diabetes. In the absence of unequivocal hyperglycemia, results should be confirmed by repeat testing. In a patient with classic symptoms of hyperglycemia or hyperglycemic crisis, random plasma glucose results greater than or equal to 200 mg/dL meet the criteria for diagnosis of diabetes. Reference: Standards of Medical Care in Diabetes 2016, [place] Diabetes Association. Diabetes Care. 2016.39(Suppl 1). Performed By: #### 2 276-4, 2131-9, 58645-9, 8 #### [facility] CLIA [id number] [address] [place] [address] [place] Potassium [Moles/Vol] 4.6 mmol/L Normal 3.7-5.1 [facility] Comment on above: Order Comment: Fan meade Type: BLOOD SPECIMEN Ordering Facility: [facility] Address: [address] [place], [place] [address] Performed By: #### 2 276-4, 2131-9, 09695-0, 228-8 #### [facility] CLIA [id number] [address] [place] [address] [place] Protein [Mass/Vol] 6.5 g/dL Normal 6.3-8.0 [facility] Comment on above: Order Comment: Speci men Type: BLOOD SPECIMEN Ordering Facility: [facility] Address: [address] [place] [address] Performed By: #### 2 276-4, 2131-9, 46151-3, 2283-8 #### [facility] CLIA [id number] [address] [place] [address] [place] Sodium [Moles/Vol] 134 mmol/L Low 136-144 [facility] Comment on above: Order Comment: Speci men Type: BLOOD SPECIMEN Ordering Facility: [facility] Address: [address] [place] [address] Performed By: #### 2 276-4, 2131-9, 44518-1, 2283-8 #### [facility] CLIA [id number] [address] [place] [address] [place] Urea nitrogen [Mass/Vol] 29 mg/dL High 7-21 [facility] Comment on above: Order Comment: Speci men Type: BLOOD SPECIMEN Ordering Facility: [facility] Address: [address] [place] [address] Performed By: #### 2 276-4, 2131-9, 94667-5, 2283-8 #### [facility] CLIA [id number] [address] [place] [address] [place] ECG COMPLETEon 08-13-2024 ECG COMPLETE Ventricular Rate : 9 7 BPM Atrial Rate : 97 BPM P-R Interval : 174 ms QRS Duration : 78 ms Q-T Interval : 328 ms QTC Calculation(Bazett) : 416 ms Calculated P [place] : 64 degrees Calculated R [place] : 29 degrees Calculated T [place] : 68 degrees SINUS RHYTHM WITH PREMATURE ATRIAL COMPLEXES CANNOT EXCLUDE ANTERIOR MYOCARDIAL INFARCTION , AGE UNDETERMINED ABNORMAL ECG 1402 08/13/2024 Confirmed by DO ROMO ALAN ([id number]), business editor CAROLINA MERRITT ([id number]) on 08/14/2024 8:29:13 AM NAME : YUSUF MEDINA PID : [id number] : 1935 Gender : Female Race : ORD : [id number] Procedure Date : Aug 13 2024 14:04:37 Edit Date : Aug 14 2024 08:29:17 Diagnosis: SINUS RHYTHM WITH PREMATURE ATRIAL COMPLEXES CANNOT EXCLUDE ANTERIOR MYOCARDIAL INFARCTION , AGE UNDETERMINED ABNORMAL ECG 1402 08/13/2024 Confirmed by DO ROMO ALAN ([id number]), business editor CAROLINA MERRITT ([id number]) on 08/14/2024 8:29:13 AM Test Reason : Chest Pain Location : 215 : [facility] [id number] Overread By : DO ROMO ALAN Edited By : CAROLINA MERRITT Referred By : , Acquired by : Ally MURGUIA [facility] ED NOTEon 08-13-2024 ED NOTE HNO ID: [id number] Author: ELIF SAM RN Service: Nursing Author Type: Registered Nurse Type: ED Notes Filed: 08/13/2024 17:42 Note Text: Pt given discharge instructions. Verbalized understanding. Pt taken to daughters car by wheelchair. Normal [facility] ED NOTE HNO ID: [id number] Author: KONSTANTIN FLORES RN Service: Nursing Author Type: Registered Nurse Type: ED Notes Filed: 08/13/2024 14:01 Note Text: Patient presents to ED with c/o weakness, and shakiness, per patients daughter the patient took both doses of her medications already for the day when she was supposed to have some in the am and some in the pm, patient taken diabetes medications daughter was worried for her sugars, patient ambulated to triage room, slow but steady. EKD handed to doctor, patient stable to return to waiting room, educated family to notify staff of any changes in condition. Normal [facility] ED PROV NOTEon 08-13-2024 ED PROV NOTE HNO ID: [id number] Author: MARIUSZ ROMO DO Service: Emergency Medicine Author Type: Physician Type: ED Provider Notes Filed: 08/13/2024 17:26 Note Text: ED Provider Note Patient Name: Yusuf Medina : 1935 SERVICE DATE: 08/13/24 History Patient presents with: Weakness 88-year-old female patient presents to ED with daughter. Patient has felt weak and shaky. During my assessment patient notes she feels better. Her daughter is translating. They speak American. She does not want me to call an additional machine set up. Patient does not have headache. No posterior head or neck pain. No chest pain. No thoracic lumbar back pain. No abdominal pain. No dysuria. No urinary frequency. No diarrhea. No constipation. She really is without complaints. She believes she has been eating fine. Her daughter adds that sometimes when they put her pill neighborhood planner medications together she takes both a.m. and p.m. doses at 1 time which she might have done today she is not sure. We talked about a strategy to prevent that. Patient does live alone but she has at least 1 or 2 family members checking in on her 1 or 3 times a day. PAST MEDICAL HISTORY Diagnosis Date - Cervical spine arthritis 05/25/2017 - CKD (chronic kidney disease) 05/11/2016 - Essential hypertension, benign - Hyperlipidemia LDL goal < 100 02/12/2014 - Intractable low back pain 08/25/2015 - Osteoarthrosis, unspecified whether generalized or localized, other specified sites Left hip - Plantar fasciitis 05/25/2017 - Primary insomnia 05/25/2017 - Renal dysfunction - Type II or unspecified type diabetes mellitus without mention of complication, not stated as uncontrolled PAST SURGICAL HISTORY Procedure Laterality Date - ARTHRP ACETBLR/PROX FEM PROSTC AGRFT/ALGRFT 11/14/2011 Hip replacement, total, L - REMV CATARACT EXTRACAP,INSERT LENS Bilateral 2020 [facility] FAMILY HISTORY Problem Relation Age of Onset - None Brother - None Sister - None Brother Social History Tobacco Use - Smoking status: Never - Smokeless tobacco: Never Substance and Sexual Activity - Alcohol use: No - Drug use: No - Sexual activity: Not Currently Partners: Male ALLERGIES No Known Allergies Review of Systems Constitutional: Positive for fatigue. Negative for activity change, appetite change and fever. HENT: Negative for congestion. Respiratory: Negative for chest tightness and shortness of breath. Cardiovascular: Negative for chest pain. Gastrointestinal: Negative for abdominal pain, diarrhea, nausea and vomiting. Genitourinary: Negative for dysuria, flank pain and urgency. Musculoskeletal: Negative for back pain and neck pain. Neurological: Negative for weakness and headaches. Physical Exam Vitals [08/13/24 1350] BP Pulse Temp Temp src Resp SpO2 Weight Height 167/84 (!) 98 37.1 ?C (98.7 ?F) Oral 20 97 % 49 kg (108 lb) -- Physical Exam Vitals reviewed. Constitutional: Appearance: Normal appearance. She is not ill-appearing or diaphoretic. HENT: Head: Normocephalic. Nose: No congestion. Mouth/Throat: Mouth: Mucous membranes are moist. Eyes: General: No scleral icterus. Pupils: Pupils are equal, round, and reactive to light. Cardiovascular: Rate and Rhythm: Normal rate and regular rhythm. Heart sounds: No murmur heard. Pulmonary: Breath sounds: Normal breath sounds. No wheezing. Abdominal: General: Bowel sounds are normal. Palpations: Abdomen is soft. Tenderness: There is no abdominal tenderness. Musculoskeletal: General: No swelling or tenderness. Normal range of motion. Cervical back: Neck supple. No tenderness. Skin: General: Skin is warm and dry. Capillary Refill: Capillary refill takes less than 2 seconds. Findings: No bruising or rash. Neurological: Mental Status: She is alert and oriented to person, place, and time. Mental status is at baseline. Cranial Nerves: No cranial nerve deficit. Sensory: No sensory deficit. Diagnostic Testing ED Labs Ordered and Reviewed GLUCOSE, BLOOD (POC) - Abnormal; Notable for the following components: Result Value Ref Range Glucose, Point of Care 231 (*) 74 - 99 mg/dL All other components within normal limits URINALYSIS WITH MICROSCOPIC, REFLEX CULTURE - Abnormal; Notable for the following components: Protein, Urine 1+ (*) Trace, Negative RBC, Urine 3-5 /HPF (*) 0-3 /HPF Non-Squamous Epithelial Cells Few (*) None Seen /HPF All other components within normal limits COVID AND INFLUENZA A/B AND RSV PCR, EXPEDITED - Normal Narrative: Reference Range (the expected result in uninfected individuals): Not detected COMPLETE BLOOD COUNT AND DIFFERENTIAL PROTHROMBIN TIME CREATINE KINASE/CK HIGH SENSITIVITY TROPONIN T (INITIAL) COMPREHENSIVE METABOLIC PANEL Procedures ED Course / Clinical Impression Clinical Impressions as of 08/13/24 1533 Generalized weakness Primary hypertension MDM / D (more content not included)... Normal [facility] HIGH SENSITIVITY TROPONIN T (INITIAL)on 08-13-2024 Troponin T.cardiac High sensitivity method [Mass/Vol] 30 ng/L High <12 [facility] Comment on above: Order Comment: Fan meade Type: BLOOD SPECIMEN Ordering Facility: [facility] Address: [address] [place] [address] Performed By: #### 2 276-4, 2-9, 34728-1, 2284-8 #### [facility] CLIA [id number] [address] [place] [address] [place] HIGH SENSITIVITY TROPONIN T (SECOND)on 08-13-2024 Troponin T.cardiac High sensitivity method [Mass/Vol] 29 ng/L High <12 [facility] Comment on above: Order Comment: Fan meade Type: BLOOD SPECIMEN Ordering Facility: [facility] Address: [address] [place] [address] Performed By: #### 2 276-4, 2131-9, 77577-0, 2283-8 #### [facility] CLIA [id number] [address] [place] [address] [place] PT panel Coag (PPP)on 2023 INR Coag (PPP) [Relative time] 1.0 {INR} Normal 0.9-1.3 [facility] Comment on above: Order Comment: Fan meade Type: BLOOD SPECIMENOrdering Facility: [facility] Address: [address] [place] [address] Result Comment: Kendra min K Antagonist (VKA) Therapeutic Range: INR 2 to 3 (Target INR of 2.5) Note: For patients treated with VKA drugs, such as warfarin, the [place] [employer] 2012 Guideline recommends a therapeutic INR range of 2 to 3 (target INR of 2.5). This recommendation includes high-risk patients with antiphospholipid syndrome with previous arterial or venous thromboembolism, current-generation mechanical or bioprosthetic aortic heart valve replacement. Note: Patients with mechanical aortic valve replacement and additional risk factors for thromboembolic events (atrial fibrillation, previous thromboembolism, LV dysfunction, hypercoagulable conditions) or an older generation mechanical AVR (i.e., ball in-Cage) or any mechanical MVR should have a INR therapeutic range of 2.5 to 3.5 (target INR of 3). Norma GH, et al. Chest 2012, 141:7S-47S John RA, et al. [facility] 2017, 70: 252-289 Performed By: #### 3 4528-0 ####[facility]ORY[facility]IA [id number] [place] [address] [place] PT Coag (PPP) [Time] 10.6 s Normal 9.7-13.0 [facility] Comment on above: Order Comment: Speci men Type: BLOOD SPECIMENOrdering Facility: [facility] Address: [address] [place] [address] Performed By: #### 3 4528-0 ####[facility]ORATORYCLIA [id number] [place] [address] [place] Urinalysis complete panel (U )on 08-13-2024 Bilirubin Ql (U) Negative Normal Negative [facility] Comment on above: Order Comment: Speci men Type: BLOOD SPECIMEN Ordering Facility: [facility] Address: [address] [place] [address] Performed By: #### 2 276-4, 9, 51203-0, 8 #### [facility] CLIA [id number] [address] [place] [address] [id number] [place] [address] [place] Clarity (Unsp spec) Clear Normal Clear [facility] Comment on above: Order Comment: Speci men Type: BLOOD SPECIMEN Ordering Facility: [facility] Address: [address] [place] [address] Performed By: #### 2 276-4, 21319, 23451-6, 8 #### [facility] CLIA [id number] [address] [place] [address] [place] Color (U) Yellow Normal yellow [facility] Comment on above: Order Comment: Speci men Type: BLOOD SPECIMEN Ordering Facility: [facility] Address: [address] [place] [address] Performed By: #### 2 276-4, 2131-9, 31382-8, 2283-8 #### [facility] CLIA [id number] [address] [place] [address] [place] Epithelial cells LM.HPF (Urine sed) [#/Area] Few Normal [facility] Comment on above: Order Comment: Speci men Type: BLOOD SPECIMEN Ordering Facility: [facility] Address: [address] [place] [address] Result Comment: Few Performed By: #### 2 276-4, 9, 66932-7, 2283-8 #### [facility] CLIA [id number] [address] [place] [address] [place] Glucose Test strip (U) [Mass/Vol] Negative Normal Trace, Negative [facility] Comment on above: Order Comment: Speci men Type: BLOOD SPECIMEN Ordering Facility: [facility] Address: [address] [place] [address] Performed By: #### 2 276-4, 9, 74694-3, 2283-8 #### [facility] CLIA [id number] [address] [place] [address] [place] Hemoglobin Ql (U) Trace Normal Negative, Trace [facility] Comment on above: Order Comment: Speci men Type: BLOOD SPECIMEN Ordering Facility: [facility] Address: [address] [place] [address] Performed By: #### 2 276-4, 2131-9, 70249-9, 2283-8 #### [facility] CLIA [id number] [address] [place] [address] [place] Ketones Ql (U) Negative Normal Negative, Trace [facility] Comment on above: Order Comment: Speci men Type: BLOOD SPECIMEN Ordering Facility: [facility] Address: [address] [place] [address] Performed By: #### 2 276-4, 2131-9, 55540-3, 2283-8 #### [facility] CLIA [id number] [address] [place] [address] [place] Leukocyte esterase Test strip Ql (U) Negative Normal Negative, 25 Vani/uL [facility] Comment on above: Order Comment: Speci men Type: BLOOD SPECIMEN Ordering Facility: [facility] Address: [address] [place] [address] Performed By: #### 2 276-4, 9, 88652-7, 8 #### [facility] CLIA [id number] [address] [place] [address] [place] Nitrite Ql (U) Negative Normal Negative [facility] Comment on above: Order Comment: Speci men Type: BLOOD SPECIMEN Ordering Facility: [facility] Address: [address] [place] [address] Performed By: #### 2 276-4, 9, 55055-4, 8 #### [facility] CLIA [id number] [address] [place] [address] [place] pH (U) 6.0 [pH] Normal 5.0-8.0 [facility] Comment on above: Order Comment: Speci men Type: BLOOD SPECIMEN Ordering Facility: [facility] Address: [address] [place] [address] Performed By: #### 2 276-4, 9, 14958-4, 8 #### [facility] CLIA [id number] [address] [place] [address] [place] Protein (U) [Mass/Vol] 1+ Abnormal Trace , Negative [facility] Comment on above: Order Comment: Speci men Type: BLOOD SPECIMEN Ordering Facility: [facility] Address: [address] [place] [address] Performed By: #### 2 276-4, 9, 47435-5, 8 #### [facility] CLIA [id number] [address] [place] [address] [place] RBC LM.HPF (Urine sed) [#/Area] 3-5 /HPF Abnormal 0-3 /HPF [facility] Comment on above: Order Comment: Speci men Type: BLOOD SPECIMEN Ordering Facility: [facility] Address: [address] [place] [address] Performed By: #### 2 276-4, 9, 58450-7, 2284-06 #### [facility] CLIA [id number] [address] [place] [address] [place] Specific gravity (U) [Rel density] 1.021 Normal 1.005-1.030 [facility] Comment on above: Order Comment: Speci men Type: BLOOD SPECIMEN Ordering Facility: [facility] Address: [address] [place] [address] Performed By: #### 2 276-4, 9, 86124-7, 2284-06 #### [facility] CLIA [id number] [address] [place] [address] [place] Urobilinogen Ql (U) Normal Normal Normal [facility] Comment on above: Order Comment: Speci men Type: BLOOD SPECIMEN Ordering Facility: [facility] Address: [address] [place] [address] Performed By: #### 2 276-4, 9, 47822-2, 2284-06 #### [facility] CLIA [id number] [address] [place] [address] [place] WBC LM.HPF (Urine sed) [#/Area] 0-5 /HPF Normal 0-5 /HPF [facility] Comment on above: Order Comment: Speci men Type: BLOOD SPECIMEN Ordering Facility: [facility] Address: [address] [place] [address] Performed By: #### 2 276-4, 2132-9, 08504-6, 2284-8 #### [facility] CLIA [id number] [address] [place] [address] [place] [address] [place] XR CHEST 1V FRONTAL PORTon 0 08-13-2024 XR CHEST 1V FRONTAL PORT * * *Final Report* * * DATE OF EXAM: Aug 13 2024 3:48PM BRX [id number] - XR CHEST 1V FRONTAL PORT / PROCEDURE REASON: Shortness of breath * * * * Physician Interpretation * * * * EXAMINATION: CHEST RADIOGRAPH (PORTABLE SINGLE VIEW AP) Exam Date/Time: 08/13/2024 3:48 PM CLINICAL HISTORY: Shortness of breath MQ: XCPR_5 Comparison: Chest x-ray 03/06/2023 RESULT: Lines, tubes, and devices: None. Lungs and pleura: No consolidation. Bilateral basilar atelectasis. Stable nodular density in the left upper lobe. No pleural effusion or pneumothorax. Cardiomediastinal silhouette: Stable cardiomediastinal silhouette. Other: Degenerative disease of bilateral shoulders IMPRESSION: Bilateral basilar atelectasis Supervisor Wound: PHU Transcribe Date/Time: Aug 13 2024 4:03P Dictated by : GILLIAN ELLIOTT MD This examination was interpreted and the report reviewed and electronically signed by: GILLIAN ELLIOTT MD on Aug 13 2024 4:04PM EST [id number] Normal [facility] CNOVon 07-12-2024 CNOV Office Visit ([facility] ) YUSUF MEDINA ([id number]) 1935 F [place]BERTO Date Time Provider Department 07/12/24 9:40 AM MIGDALIA CRAMER [facility] During your visit today, we recorded the following information about you: Pulse Blood pressure Weight 80/minute 142/70 49.3 kg Migdalia Cramer MD 07/12/2024 2:26 PM Signed SUBJECTIVE: Yusuf Medina is a 88 year old female who presents for evaluation and treatment of Diabetes Mellitus, Hypertension, and Hyperlipidemia and CKD Here with Demetria MCKEON March 2023 Last virtual April 2023 Had labs done Checking glc in AM, 120 today Checks at night if her mouth feels dry No particularly high or low glucose Took meds this morning Weight down about 11 lbs in 15 months according to chart (they hadn't noticed) Lives alone, does her own cooking She eats 2 meals a day Slice of bread and a sausage for breakfast Soup or stew for lunch Maybe a piece of fruit DM-2 Actos 45mg daily, Glipizide 2.5mg daily, metformin 850 mg twice a day Hypertension Lisinopril/HCTZ 20/25 mg daily, amlodipine 5 mg daily Hyperlipidemia Pravastatin 20 mg daily No CP., palp, inc SOB/STOUT, ankle edema OBJECTIVE: BP 142/70 Pulse 80 Wt 49.3 kg (108 lb 11 oz) BMI 21.23 kg/m? Gen: Appears well, in NAD Neck: thyroid normal size, non-tender, without nodularity Chest: Lungs clear to auscultation. No wheezing, rhonchi, rales. CV: Regular rate and rhythm EXT: no significant lower extremity edema Labs done 07/11/2024 Glucose 244 Estimated GFR 59 BUN 30, creatinine 0.93 Potassium 5.2 Total cholesterol 151, LDL 71, HDL 59 A1c 8.2 (7.7 05/13/2023) ASSESSMENT/PLAN (I10) Essential hypertension (primary encounter diagnosis) (E11.22, N18.30) CKD stage 3 due to type 2 diabetes mellitus (HCC) (I12.9, N18.32) Hypertensive kidney disease with stage 3b chronic kidney disease (HCC) (E11.69, E78.5) Hyperlipidemia associated with type 2 diabetes mellitus (HCC) (HCC) (E11.9) Diabetes mellitus, non-insulin dependent (NIDDM or type II) (HCC) (E78.5) Dyslipidemia (R63.4) Weight loss (D50.9) Iron deficiency anemia, unspecified iron deficiency anemia type Try adding a diabetic drink meal replacement once a day to get some additional calories Confirm she is taking medications as prescribed, continue pravastatin 20 mg for cholesterol Continue Actos 45 mg daily, metformin 850 mg twice a day, and glipizide 2.5 mg daily for diabetes Continue lisinopril/HCTZ 20/25 mg daily for hypertension Check BMP and A1c in 8 weeks Check CBC and TSH She is scheduled for Medicare annual wellness visit on 09/13/2024 We discussed the importance of keeping this visit MD Bela Sanchez, Migdalia Archibald MD 07/12/2024 10:09 AM Addendum Try drinking 1 Glucerna a day to get some extra calories. I don't want you to continue to lose weight. Take all medications exactly as prescribed. Please have labs done again in late August. Keep appointment scheduled for 09/13/24 for Medicare Annual Wellness Visit. Allergies As of Date: 07/12/2024 (No Known Allergies) Date Reviewed: 07/12/2024 Reviewed by: Sandrita Christianson LPN - Fully Assessed Reason for Visit: Follow Up [171] Primary Visit Diagnosis:Essential hypertension [I10] Other Visit Diagnoses:CKD stage 3 due to type 2 diabetes mellitus (HCC) [E11.22, N18.30] Hypertensive kidney disease with stage 3b chronic kidney disease (HCC) [I12.9, N18.32] Hyperlipidemia associated with type 2 diabetes mellitus (HCC) (HCC) [E11.69, E78.5] Diabetes mellitus, non-insulin dependent (NIDDM or type II) (HCC) [E11.9] Dyslipidemia [E78.5] Weight loss [R63.4] Iron deficiency anemia, unspecified iron deficiency anemia type [D50.9] Order(s):BASIC METABOLIC PANEL [SQBMP] Order #: [id number] FUTURE HEMOGLOBIN A1C [PBQQL7R] Order #: [id number] FUTURE ALBUMIN/CREATININE RATIO, URINE [SQUACR] Order #: [id number] FUTURE COMPLETE BLOOD COUNT [SQCBC] Order #: [id number] FUTURE THYROID STIMULATING HORMONE [SQTSH] Order #: [id number] FUTURE Prescriptions as of 07/12/2024 - pioglitazone (ACTOS) 45 mg tablet Take 1 tablet by mouth once daily. - pravastatin (PRAVACHOL) 20 mg tablet Take 1 tablet by mouth once daily. - lansoprazole (PREVACID) 30 mg capsule Take 1 capsule by mouth once daily. - amLODIPine (NORVASC) 5 mg tablet TAKE 1 TABLET BY MOUTH ONCE DAILY - lisinopril-hydroCHLORO thiazide (ZESTORETIC) 20-25 mg per tablet TAKE 1 TABLET BY MOUTH ONCE DAILY - metFORMIN (GLUCOPHAGE) 850 mg tablet Take 1 tablet by mouth two times a day with meals. - meloxicam (MOBIC) 15 mg tablet Take 1 tablet by mouth once daily as needed for pain. DO NOT COMBINE WITH DICLOFENAC GEL - glipiZIDE (GLUCOTROL XL) 2.5 mg 24 hr tablet Take 1 tablet by mouth once daily. - blood sugar diagnostic (newMentorUCH ULTRA TEST) test strip Test blood sugar once daily - diclofenac (VOLTARE (more content not included)... Normal [facility] Basic metabolic 2000 panelon 07-11-2024 Anion gap [Moles/Vol] 14 mmol/L Normal 8-15 [facility] Comment on above: Order Comment: Speci men Type: BLOOD SPECIMENOrdering Facility: [facility] Address: [address] [place] [address] Performed By: #### 2 4321-2 ####[facility] LAB[facility]IA [id number] [place] [address] [place] Calcium [Mass/Vol] 9.9 mg/dL Normal 8.5-10.2 [facility] Comment on above: Order Comment: Speci men Type: BLOOD SPECIMENOrdering Facility: [facility] Address: [address] [place] [address] Performed By: #### 2 4321-2 ####[facility] LABCLIA [id number] [place] [id number] [place] Chloride [Moles/Vol] 101 mmol/L Normal 98-107 [facility] Comment on above: Order Comment: Speci men Type: BLOOD SPECIMENOrdering Facility: [facility] Address: [address] [place] [address] Performed By: #### 2 4321-2 ####[facility] LAB[facility]IA [id number] [place] [address] [place] CO2 [Moles/Vol] 20 mmol/L Low 22-30 [facility] Comment on above: Order Comment: Speci men Type: BLOOD SPECIMENOrdering Facility: [facility] Address: [address] [place] [address] Performed By: #### 2 4321-2 ####[facility] LAB[facility]IA [id number] [place] [address] [place] Creatinine [Mass/Vol] 0.93 mg/dL Normal 0.58-0.96 [facility] Comment on above: Order Comment: Speci men Type: BLOOD SPECIMENOrdering Facility: [facility] Address: [address] [place] [address] Performed By: #### 2 4321-2 ####[facility] LABIA [id number] [address] Creatinine and Glomerular filtration rate.predicted panel (S/P/Bld) 59 mL/min/1.73m??? Low >=60 [facility] Comment on above: Order Comment: Speci men Type: BLOOD SPECIMENOrdering Facility: [facility] Address: [address] [place] [address] Result Comment: Hilda mated Glomerular Filtration Rate (eGFR) is calculated using the 2020 CKD-EPI creatinine equation. This equation utilizes serum creatinine, sex, and age as parameters. The creatinine assay has traceable calibration to isotope dilution-mass spectrometry. Refer to KDIGO guidelines for clinical interpretation. In patients with unstable renal function, e.g. those with acute kidney injury, the eGFR may not accurately reflect actual GFR. Performed By: #### 2 4321-2 ####[facility] LABCLIA [id number] [place] [id number] [place] Glucose [Mass/Vol] 244 mg/dL High 74-99 [facility] Comment on above: Order Comment: Speci men Type: BLOOD SPECIMENOrdering Facility: [facility] Address: [address] [place] [address] Result Comment: The [place] Diabetes Association (ADA) provides guidance for cutoff values for fasting glucose and random glucose. The ADA defines fasting as no caloric intake for at least 8 hours. Fasting plasma glucose results between 100 to 125 mg/dL indicate increased risk for diabetes (prediabetes). Fasting plasma glucose results greater than or equal to 126 mg/dL meet the criteria for diagnosis of diabetes. In the absence of unequivocal hyperglycemia, results should be confirmed by repeat testing. In a patient with classic symptoms of hyperglycemia or hyperglycemic crisis, random plasma glucose results greater than or equal to 200 mg/dL meet the criteria for diagnosis of diabetes. Reference: Standards of Medical Care in Diabetes 2016, [place] [employer]. Diabetes Care. 2016.39(Suppl 1). Performed By: #### 2 4321-2 ####[facility] LAB[facility]IA [id number] [place] [address] [place] Potassium [Moles/Vol] 5.2 mmol/L High 3.7-5.1 [facility] Comment on above: Order Comment: Speci men Type: BLOOD SPECIMENOrdering Facility: [facility] Address: [address] [place] [address] Performed By: #### 2 4321-2 ####[facility] LABCLIA [id number] [place] [address] [place] Sodium [Moles/Vol] 135 mmol/L Low 136-144 [facility] Comment on above: Order Comment: Speci men Type: BLOOD SPECIMENOrdering Facility: [facility] Address: [address] [place] [address] Performed By: #### 2 4321-2 ####[facility] LABCLIA [id number] [place] [id number] [place] Urea nitrogen [Mass/Vol] 30 mg/dL High 7-21 [facility] Comment on above: Order Comment: Speci men Type: BLOOD SPECIMENOrdering Facility: [facility] Address: [address] [place] [address] Performed By: #### 2 4321-2 ####[facility] LABCLIA [id number] [place] [address] [place] HbA1c (Bld)on 07-11-2024 Average glucose Estimated from glycated hemoglobin (Bld) [Mass/Vol] 189 mg/dL Normal [facility] Comment on above: Order Comment: Fan meade Type: BLOOD SPECIMENOrdering Facility: [facility] Address: [address] [place] [address] Result Comment: eAG: (Estimated average glucose) is a calculated value from HgbA1c and is retail wireless sales representative of the average blood glucose level in the last 2-3 month period. Performed By: #### 5 5454-3 ####[facility] LABCLIA [id number] [address] HbA1c (Bld) [Mass fraction] 8.2 % High 4.3-5.6 [facility] Comment on above: Order Comment: Fan meade Type: BLOOD SPECIMENOrdering Facility: [facility] Address: [address] [place] [address] Result Comment: Amer ican Diabetes Association guidelines indicate that patients with HgbA1c in the range 5.7-6.4% are at increased risk for development of diabetes, and intervention by lifestyle modification may be beneficial. HgbA1c greater or equal to 6.5% is considered diagnostic of diabetes. Performed By: #### 5 5454-3 ####[facility] LABCLIA [id number] [address] OF [facility] LIPID PANEL, NONFASTINGon Cholesterol [Mass/Vol] 151 mg/dL Normal <200 [facility] Comment on above: Order Comment: Fan meade Type: BLOOD SPECIMEN [facility] Address: [address] [place] [address] Result Comment: <200 mg/dL, Desirable 200-239 mg/dL, Borderline high >239 mg/dL, High Performed By: #### 2 276-4, 2132-9, 08156-1, 2284-8 #### [facility] CLIA [id number] [place] HDL CHOLESTEROL, NF 59 mg/dL Normal >39 [facility] Comment on above: Order Comment: Fan meade Type: BLOOD SPECIMEN [facility] Address: [address] [place] [address] Result Comment: 40-5 9 mg/dL, Acceptable >59 mg/dL, High: Negative risk factor for coronary heart disease <40 mg/dL, Low: Positive risk factor for coronary heart disease Performed By: #### 2 276-4, 2-9, 44402-5, 2284-8 #### [facility] CLIA [id number] [address] [place] [address] OF [facility] LDL CHOLESTEROL, NF 71 mg/dL Normal <100 [facility] Comment on above: Order Comment: Fan meade Type: BLOOD SPECIMEN [facility] Address: [address] [place] [address] Result Comment: <100 mg/dL, Optimal 100-129 mg/dL, Near optimal/above optimal 130-159 mg/dL, Borderline high 160-189 mg/dL, High >189 mg/dL, Very high Secondary prevention optimal LDL Cholesterol levels are recommended to be < 70 mg/dL Performed By: #### 2 276-4, 2-9, 77038-5, 2284-8 #### [facility] CLIA [id number] [address] [place] [address] [place] LDL/HDL RATIO, NF 1.20 mg/dL Normal <2.54 [facility] Comment on above: Order Comment: Fan meade Type: BLOOD SPECIMEN [facility] Address: [address] [place] [address] Result Comment: Isabella johnson: 1. National Cholesterol Education Program ATP III Guideline At-A-Glance Quick Desk Reference: National Heart, Lung, and Blood [place]. National Institutes of Health. 2001: NIH Publication No. 01-3305. 2. An International Atherosclerosis Society position paper: global recommendations for the management of dyslipidemia: executive summary, Atherosclerosis. 2014: 232(2):410-413. Performed By: #### 2 276-4, 9, 79123-5, 2284-06 #### [facility] CLIA [id number] [address] [place] [address] [place] NON HDL CHOL, NF 92 mg/dL Normal <130 [facility] Comment on above: Order Comment: Fan meade Type: BLOOD SPECIMEN [facility] Address: [address] [place] [address] Result Comment: <130 mg/dL, Optimal 130-159 mg/dL, Near optimal/above optimal 160-189 mg/dL, Borderline high 190-219 mg/dL, High >219 mg/dL, Very high Secondary prevention optimal non HDL Cholesterol levels are recommended to be <100 mg/dL Performed By: #### 2 276-4, 2132-07, 92006-5, 2284-06 #### [facility] CLIA [id number] [address] [place] [address] [place] T CHOL/HDL RATIO NF 2.56 mg/dL Normal <5.10 [facility] Comment on above: Order Comment: Fan meade Type: BLOOD SPECIMEN [facility] Address: [address] [place] [address] Performed By: #### 2 276-4, 2132-07, 43219-8, 2284-06 #### [facility] CLIA [id number] [address] [place] [address] [place] TRIGLYCERIDES, NF 107 mg/dL Normal <150 [facility] Comment on above: Order Comment: Fan meade Type: BLOOD SPECIMEN [facility] Address: [address] [place] [address] Result Comment: <150 mg/dL, Normal 150-199 mg/dL, Borderline high 200-499 mg/dL, High >499 mg/dL, Very high Performed By: #### 2 276-4, 2132-07, 17335-6, 4-8 #### [facility] CLIA [id number] [address] [place] [address] [place] VLDL CHOLESTEROL, NF 21 mg/dL Normal <30 [facility] Comment on above: Order Comment: Speci men Type: BLOOD SPECIMEN [facility] Address: [address] [place] [address] Performed By: #### 2 276-4, 2132-9, 16788-1, 8 #### [facility] CLIA [id number] [address] [place] [address] [place] CNPNon 04-16-2024 CNPN Telephone (MEGANO) YUSUF MEDINA ([id number]) 1935 F [place] Date Time Provider Department 04/16/24 MIGDALIA CRAMER During your visit today, we recorded the following information about you: Perla Cramer 04/16/2024 11:24 AM Signed Patients sister in law Augustin called and needs clarification on the patient diabetes medications she stated that she got a call from [facility] stating that she had glyburide ready for cook pickled meat but she thought she was supposed to be taking glipizide. Please advise Guerita Vincent, RN 04/16/2024 11:40 AM Signed Spoke with sister in Demetria saenz and explained that her current Rx is for Glipizide/Glucotrol 2.5 mg once daily - not for Glyburide. Verbalized understanding. No further questions. Allergies As of Date: 04/16/2024 (No Known Allergies) Date Reviewed: 03/21/2024 Reviewed by: Gertrudis Bill DO - Fully Assessed Reason for Visit: Medication Problem [65] Prescriptions as of 04/30/2024 - pioglitazone (ACTOS) 45 mg tablet Take 1 tablet by mouth once daily. - pravastatin (PRAVACHOL) 20 mg tablet Take 1 tablet by mouth once daily. - pravastatin (PRAVACHOL) 20 mg tablet Take 1 tablet by mouth once daily for 14 days. - lansoprazole (PREVACID) 30 mg capsule Take 1 capsule by mouth once daily for 14 days. - lansoprazole (PREVACID) 30 mg capsule Take 1 capsule by mouth once daily. - amLODIPine (NORVASC) 5 mg tablet TAKE 1 TABLET BY MOUTH ONCE DAILY - lisinopril-hydroCHLORO thiazide (ZESTORETIC) 20-25 mg per tablet TAKE 1 TABLET BY MOUTH ONCE DAILY - metFORMIN (GLUCOPHAGE) 850 mg tablet Take 1 tablet by mouth two times a day with meals for 7 days. - metFORMIN (GLUCOPHAGE) 850 mg tablet Take 1 tablet by mouth two times a day with meals. - meloxicam (MOBIC) 15 mg tablet Take 1 tablet by mouth once daily as needed for pain. DO NOT COMBINE WITH DICLOFENAC GEL - glipiZIDE (GLUCOTROL XL) 2.5 mg 24 hr tablet Take 1 tablet by mouth once daily. - glipiZIDE (GLUCOTROL XL) 2.5 mg 24 hr tablet Take 1 tablet by mouth once daily. - metFORMIN (GLUCOPHAGE) 850 mg tablet Take 1 tablet by mouth twice daily with meals. - blood sugar diagnostic (ONETOUCH ULTRA TEST) test strip Test blood sugar once daily - diclofenac (VOLTAREN) 1 % topical gel Apply 2 g to affected area four times daily as needed. - polyethylene glycol 3350 (MIRALAX) 17 gram/dose powder 1 capful dissolved in 8 oz water once daily as needed for regular stools. Can use daily. Meds Comments as of 03/30/2022: 03/30/22 The medications are managed by this patient by: CAREGIVER José Miguel Swanson [facility] Problem List As Of Date 04/16/2024 Noted Resolved Osteoarth NOS-other site [M19.90] 09/15/2011 BENIGN HYPERTENSION [I10] 12/01/2016 Diabetes mellitus without mention of complicati*04/10/2003 05/24/2011 Esophageal reflux [K21.9] 06/15/2006 Lumbago [M54.50] 05/31/2007 09/15/2011 Urgency of urination [R39.15] 10/12/2007 09/15/2011 Urge incontinence [N39.41] 10/12/2007 12/01/2016 Other functional disorder of bladder [N31.8] 10/12/2007 09/15/2011 Retention of urine, unspecified [R33.9] 10/12/2007 12/01/2016 Postmenopausal atrophic vaginitis [N95.2] 10/12/2007 05/11/2016 Urinary frequency [R35.0] 01/11/2008 09/15/2011 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] 04/18/2008 09/15/2011 Vertigo of central origin [H81.4] 01/08/2010 09/15/2011 Peripheral vertigo, unspecified [H81.399] 01/08/2010 09/15/2011 Diabetes Mellitus Type II, Uncontrolled; 1999 [*02/22/2010 12/01/2016 Degenerative arthritis of hip [M16.9] 10/31/2010 09/23/2014 Pain in joint, pelvic region and thigh [M25.559]10/31/2010 09/15/2011 Thoracic or lumbosacral neuritis or radiculitis*10/31/2010 09/15/2011 Lumbosacral spondylosis without myelopathy [M47*10/31/2010 09/15/2011 Degeneration of lumbar or lumbosacral intervert*10/31/2010 Osteoarth NOS-pelvis [M16.10] 11/16/2010 09/15/2011 Hyperlipidemia [E78.5] 02/19/2011 02/12/2014 Gait disturbance [R26.9] 05/20/2011 05/11/2016 Hip arthritis [M16.10] 05/20/2011 Diabetes mellitus type 2, controlled, without c*05/24/2011 05/11/2016 Renal dysfunction [N28.9] 03/07/2017 Varicose veins of lower extremities with other *09/27/2011 Osteoarthritis of ankle or foot, right [M19.071]10/19/2011 12/07/2017 Cervicalgia [M54.2] 07/17/2013 05/11/2016 Pain in joint, shoulder region [M25.519] 07/17/2013 09/23/2014 Dyslipidemia [E78.5] 02/12/2014 Shoulder arthritis [M19.019] 08/06/2014 Rotator cuff (capsule) sprain [S43.429A] 08/06/2014 03/07/2017 Lumbosacral radiculitis [M54.17] 02/21/2015 12/07/2017 Lumbar canal stenosis [M48.061] 02/21/2015 Intractable low back pain [M54.59] 08/25/2015 12/01/2016 Acute renal failure (ARF) (HCC) [N17.9] 08/24/2015 08/29/2015 Unable to ambulate [R26.2] 08/27/2015 05/11/2016 Constipation [K59.00] 08/28/2015 05/11/2016 Sacroiliitis (HCC) [M46.1] 10/28/2015 12/07/2017 Type 2 d (more content not included)... Normal [facility] Progress Noteon 12-09-2021 Home Health Progress Note Follow up call placed to patient regarding HHC. Spoke with Yusuf regarding services. Patient states no services needed and hung up on caller. [facility] Normal [facility] BASICMETAon 12-07-2021 GFR AA 45 [facility] Comment on above: Result Comment: Afri can Greek GFR Calc Medical judgement is necessary to interpret GFR. The calculated GFR may not accurately reflect renal status in patients >70 years, women, acutely ill hospitalized patients and patients with acute renal failure or known renal disease. The MDRD GFR formula is valid only for adults greater than 18 years of age. Note: Creatinine clearance (not GFR) should be used for drug dosing. Performed By: #### C D:[id number], 3826090, 323843, 808362, 100202, 649459 #### [facility] [address] [place] [address] Industrial Organization Manager: Robert Ybarra MD Glomerular Filtration Rate 37 mL/min/1.73m? Normal [facility] Comment on above: Result Comment: Non GFR Calc Medical judgement is necessary to interpret GFR. The calculated GFR may not accurately reflect renal status in patients >70 years, women, acutely ill hospitalized patients and patients with acute renal failure or known renal disease. The MDRD GFR formula is valid only for adults greater than 18 years of age. Note: Creatinine clearance (not GFR) should be used for drug dosing. Performed By: #### C D:[id number], 5690671, 969553, 185070, 405167, 472413 #### [facility] [address] [place] [address] Industrial Organization Manager: Robert Ybarra MD Osmolality [Osmolality] 287 mosm/kg Normal 275-295 [facility] Comment on above: Performed By: #### C D:[id number], 1317479, 974359, 124594, 704310, 807871 #### [facility] [address] [place] [address] Industrial Organization Manager: Robert Ybarra MD Urea nitrogen/Creatinine [Mass ratio] 19.1 mg/mg Normal [facility] Comment on above: Performed By: #### C D:[id number], 0364076, 267985, 366879, 980702, 223532 #### [facility] [address] [place] [address] Industrial Organization Manager: Robert Ybarra MD Calcium [Mass/Vol] 9.7 mg/dL Normal 8.5-10.5 [facility] Comment on above: Performed By: #### C D:[id number], 6982334, 697667, 077614, 377009, 893518 #### [facility] [address] [place] [address] Industrial Organization Manager: oRbert Ybarra MD Chloride [Moles/Vol] 107 mmol/L Normal 100-109 [facility] Comment on above: Performed By: #### C D:[id number], 1785201, 612904, 308531, 715783, 468445 #### [facility] [address] [place] [address] Industrial Organization Manager: Robert Ybarra MD CO2 [Moles/Vol] 25.9 mmol/L Normal 21.0-32.0 [facility] Comment on above: Performed By: #### C D:[id number], 2638560, 904768, 671241, 179350, 631387 #### [facility] [address] [place] [address] Industrial Organization Manager: Robert Ybarra MD Creatinine [Mass/Vol] 1.4 mg/dL High 0.6-1.0 [facility] Comment on above: Performed By: #### C D:[id number], 3892812, 114123, 689052, 402953, 424514 #### [facility] [address] [place] [address] Industrial Organization Manager: Robert Ybarra MD Glucose [Mass/Vol] 177 mg/dL High 72-100 [facility] Comment on above: Result Comment: Shireen puncture should occur prior to sulfasalazine administration due to the potential for falsely depressed results. Venipuncture should occur prior to sulfapyridine administration due to the potential falsely elevated results. Baseline assay values before administration of sulfasalazine and sulfapyridine therapy would not be affected. Performed By: #### C D:[id number], 8571387, 983006, 829890, 126216, 609271 #### [facility] [address] [place] [address] Industrial Organization Manager: Robert Ybarra MD Potassium [Moles/Vol] 4.7 mmol/L Normal 3.5-5.1 [facility] Comment on above: Performed By: #### C D:[id number], 7217825, 638190, 639843, 239222, 917542 #### [facility] [address] [place] [address] Industrial Organization Manager: Robert Ybarra MD Sodium [Moles/Vol] 139 mmol/L Normal 135-145 [facility] Comment on above: Performed By: #### C D:[id number], 3605446, 668398, 712393, 145707, 171559 #### [facility] [address] [place] [address] Industrial Organization Manager: Robert Ybarra MD Urea nitrogen [Mass/Vol] 26 mg/dL High 10-20 [facility] Comment on above: Performed By: #### C D:[id number], 5072022, 133145, 386377, 715277, 225553 #### [facility] [address] [place] [address] Industrial Organization Manager: Robert Ybarra MD CPKon 12-07-2021 CPK 1185 unit/L Critically abnormal 26-192 [facility] Comment on above: Result Comment: Crit ical Result(s) called at: 13:24:37 on 12/07/2021 by: MIRNA rechecked, RBR to: Dr. Beckford Performed By: #### C D:[id number], 5754647, 848475, 114633, 783327, 195050 #### [facility] [address] [place] [address] Industrial Organization Manager: Robert Ybarra MD Utilization Review Noteon Utilization Review Note Inpatient recomm ended. Inpatient ordered. Patient with #1 acute hypothermia. YUSUF MEDINA 12/03/21 [id number] CCE 200 INPT UPDATED CERNER TO [facility] MEDIC[facility] Verified admit thru the portal [id number] PATIENT ALREADY DISCHARGED AT THE TIME OF THIS REVIEW. Faxed Normal [facility] Discharge Educationon 2021 Discharge Education Patient Education Material Normal [facility] Inpatient Patient Summaryon 12-05-2021 Inpatient Patient Summary [facility] Discharge Instructions [address] [place] [address] \.br\(Patient Copy)\.br\ \.br\ \.br\Name: YUSUF MEDINA : 1935 \.br\Diagnosis: Abrasion of right elbow; Benign essential hypertension; Chronic kidney disease (CKD), stage III (moderate); Contusion of right thigh; Diabetes mellitus type II, controlled; acute Hypothermia \.br\ \.br\Allergies: No Known Allergies\.br\ \.br\Registration Date: 12/03/21\.br\\.br\\.br \ \.br\ Current Date Time: 12/05/2021 07:42:18 \.br\ \.br\Address: [address] [place] [address] \.br\ \.br\ \.br\Primary Care Provider: \.br\Name: RDAHA CRAMER\.br\ \.br\ \.br\Thank you for choosing [facility] for your care. You are very important to us. Our goal is to demonstrate our high quality medical care and provide you with a very good patient experience.\.br\ You may receive a survey about our service. Please take the time to complete the survey and return it so we can continue to enhance our service.\.br\ Thank you again for allowing [facility] to care for your medical needs. If you have any questions about your care or follow up information please contact your doctor.\.br\\.br\Follo w-up Instructions\.br\\.br\ \.br\With: Address: When: \.br\Follow Up with your Primary Care Doctor in 7-10 Days \.br\\.br\\.br\\.br\\. br\\.br\Medication Information\.br\Only Take The Medicines On This List. \.br\Keep This List and Bring It To Your Next Appointment. \.br\Medicines To Take At Home: \.br\ Medicine Name\.br\ (Generic Name) Amount to Take How to Take it How Often to Take it Additional Instructions Next Dose Due \.br\ glipiZIDE 2.5 mg oral tablet, extended release\.br\(glipizide ) 2.5 mg By Mouth DAILY \.br\ Prevacid 30 mg oral delayed release capsule\.br\(lansopraz ole) 30 mg By Mouth DAILY \.br\ metFORMIN 500 mg oral tablet\.br\(metformin = glucophage) 500 mg By Mouth TWICE A DAY \.br\ Actos 45 mg oral tablet\.br\(pioglitazo ne) 45 mg By Mouth DAILY \.br\ Pravachol 20 mg oral tablet\.br\(pravastati n) 20 mg By Mouth AT BEDTIME \.br\\.br\Understandin g your home medicine is important to keeping you healthy. If you are taking medications that are not on the preceding list, please call your doctor to see if you are to continue taking that medication. It is important that you do not skip or make up doses. If you are ordered an antibiotic, finish taking all the medicine unless your doctor tells you otherwise. Call your doctor if you have any questions or problems. Take the medicine list with you to all follow up appointments.\.br\\.br \Patient education materials, if any, will display below\.br\\.br\ Prescription leaflets, if any, will display below\.br\ \.br\Guidelines for a Healthy Lifestyle:\.br\ ACTIVITY Follow your doctors instructions regarding staying active\.br\Balance rest and activity. Continue to do the activities you enjoy if okay with your doctor. Both activity and rest are important to the health of your heart.\.br\Avoid people with colds / flu.\.br\ \.br\ SMOKING Do not smoke or use other nicotine products. Nicotine is in all tobacco products. Nicotine causes damage to the heart, brain, and lungs. It is never too late to quit. Even if you have smoked for years, you can benefit from quitting or smoking less.\.br\If you or a loved one is interested in more information on smoking cessation, contact [facility]?s Tobacco Cessation [facility] [phone]\.br\ \.br\ DIET Eat a variety of nutritious foods from all the food groups. To get the nutrients you need, choose foods like vegetables, fruits, whole-grain products and fat-free or low-fat dairy products most often. Your food choices each day affect your health.\.br\Here are some tips for a healthy diet for most people.\.br\? Go Lean with Protein---Meats and Dairy products\.br\? Choose a variety of Fruits and Vegetables daily\.br\? Choose whole grains\.br\? Limit Processed and packaged prepared foods \.br\ To schedule an outpatient diet education appointment call \.br\ \.br\ VACCINE Discuss with your Physician the need for pneumococcal vaccine and other vaccines at your next appointment.\.br\ \.br\ IMPORTANT NUMBERS Health Connection / Physician Referral and Health Information [phone].\.br\[facility] [place] 0-317-ETO-BEAT ( )\.br\S easons of a Woman?s Life [phone] \.br\ \.br\ Call immediately if you or someone you know are having signs of a STROKE:\.br\? Sudden numbness or weakness of the face, arm, or leg, especially on one side of the body\.br\? Sudden confusion, trouble speaking or understanding\.br\? Sudden trouble seeing in one or both eyes\.br\? Sudden trouble walking, dizziness, loss of balance or coordination\.br\? Sudden severe headache with no known cause \.br\ Call immediately if you or someone you know are having signs of a HEART ATTACK:\.br\? Chest discomfort: M (more content not included)... Normal [facility] AUTO DIFFon 12-04-2021 Baso Count 0.05 x1000 Normal 0.00-0.20 [facility] Comment on above: Performed By: #### 1 [address]109, 033309, 210211, 5969945 ####[facility] [id number] [place] [address] Medical Director: Robert Ybarra MD Basos % 0.5 % Normal [facility] Comment on above: Performed By: #### 1 , 372558, 361895, 6447162 ####[facility] [id number] [place] [address] Medical Director: Robert Ybarra MD Eos Count 0.01 x1000 Normal 0.00-0.50 [facility] Comment on above: Performed By: #### 1 , 901940, 889564, 2274598 ####[facility] [id number] [place] [address] Medical Director: Robert Ybarra MD Eosinophils/100 WBC (Bld) 0.1 % Normal [facility] Comment on above: Performed By: #### 1 , 143736, 065053, [id number] ####[facility] [id number] [place] [address] Medical Director: Robert Ybarra MD Lymph Count 1.19 x1000 Low 1.20-4.80 [facility] Comment on above: Performed By: #### 1 , 206511, 709600, 7624331 ####[facility] [address] [place] [address] Medical Director: Robert Ybarra MD Lymphocytes/100 WBC (Bld) 11.8 % Normal [facility] Comment on above: Performed By: #### 1 , 222895, 085315, 7264972 ####[facility] [address] [place] [address] Medical Director: Robert Ybarra MD White Count 0.57 x1000 Normal 0.10-1.00 [facility] Comment on above: Performed By: #### 1 , 902463, 137695, 3464465 ####[facility] [address] [place] [address] Medical Director: Robert Ybarra MD Monocytes/100 WBC (Bld) 5.6 % Normal S [facility] Comment on above: Performed By: #### 1 , 861979, 713666, 5811289 ####[facility] [address] [place] [address] Medical Director: Robert Ybarra MD Neutrophil Count (ANC) 8.28 x1000 Normal 1.40-8.80 [facility] Comment on above: Performed By: #### 1 , 780563, 898416, 8190722 ####[facility] [address] [place] [address] Medical Director: Robert Ybarra MD Neutrophils/100 WBC (Bld) 82.0 % Normal [facility] Comment on above: Performed By: #### 1 , 115776, 518545, 2714778 ####[facility] [address] [place] [address] Medical Director: Robert Ybarra MD B12 FOLATEon 12-04-2021 Cobalamin (Vitamin B12) [Mass/Vol] 455 pg/mL Normal 193-986 [facility] Comment on above: Performed By: #### 1 , 150140, 747755, 2635933 ####[facility] [address]fs[address] [place] [address] Medical Director: Robert Ybarra MD FOLATE 14.3 ng/mL Normal 3.1-17.5 [facility] Comment on above: Performed By: #### 1 , 570711, 535677, 0198253 ####[facility] [address] [place] [address] Medical Director: Robert Ybarra MD BLD GASon 12-04-2021 MAGGIE TEST Normal [facility] Comment on above: Performed By: #### C D:[id number], 5999216, 097291, 097723, 924198, 776363 #### [facility] [address] [place] [address] Industrial Organization Manager: Robert Ybarra MD Base Excess -5.0 mmol/L [facility] Comment on above: Performed By: #### C D:[id number], 7399334, 838643, 003630, 038309, 415578 #### [facility] [address] [place] [address] 58337 Industrial Organization Manager: Robert Ybarra MD ePAP 0 cmH20 [facility] Comment on above: Performed By: #### C D:[id number], 4808464, 456651, 498965, 393850, 464526 #### [facility] [address] [place] [address] 61758 Industrial Organization Manager: Robert Ybarra MD FIO2 36 % [facility] Comment on above: Performed By: #### C D:[id number], 5193511, 462062, 854436, 066767, 034595 #### [facility] [address] [place] [address] 26971 Industrial Organization Manager: Robert Ybarra MD HCO3 (Bld) [Moles/Vol] 19.8 mmol/L Low 22.0-26.0 S [facility] Comment on above: Performed By: #### C D:[id number], 3589260, 597654, 188450, 920696, 630633 #### [facility] [address] [place] [address]97 Industrial Organization Manager: Robert Ybarra MD iPAP 0 cmH20 [facility] Comment on above: Performed By: #### C D:[id number], 2755838, 754204, 217702, 486026, 232116 #### [facility] [address] [place] [address] 75476 Industrial Organization Manager: Robert Ybarra MD O2 L/M 4.0 Normal [facility] Comment on above: Performed By: #### C D:[id number], 8298085, 199017, 344745, 242469, 680671 #### [facility] [address] [place] [address]29 Industrial Organization Manager: Robert Ybarra MD Oxygen (Bld) [Partial pressure] 82.0 mm[Hg] Normal 80.0-100.0 [facility] Comment on above: Performed By: #### C D:[id number], 3201553, 091784, 484135, 717177, 261219 #### [facility] [address] [place] [address] 18319 Industrial Organization Manager: Robert Ybarra MD Oxygen saturation in Blood 94.1 % Normal [facility] Comment on above: Performed By: #### C D:[id number], 6231023, 978501, 577180, 736996, 709786 #### [facility] [address] [place] [address] 60535 Industrial Organization Manager: Robert Ybarra MD PCO2 35.6 mmHg Normal 35.0-45.0 [facility] Comment on above: Performed By: #### C D:[id number], 1240648, 207424, 270507, 377649, 568130 #### [facility] [address] [place] [address] 569[address] Industrial Organization Manager: Robert Ybarra MD PEEP 0.0 cmH20 Normal [facility] Comment on above: Performed By: #### C D:[id number], 5513081, 273126, 861058, 097904, 076997 #### [facility] [address] [place] [address] 84083 Industrial Organization Manager: Robert Ybarra MD pH (Bld) 7.363 [pH] Normal 7.350-7.450 [facility] Comment on above: Performed By: #### C D:678809226, 3223012, 733873, 449555, 162835, 927596 #### [facility] [address] [place] [address] 62148 Industrial Organization Manager: Robert Ybarra MD PO2/FiO2 Ratio 228 Low 300-500 [facility] Comment on above: Performed By: #### C D:561394401, 7835563, 480281, 007244, 280402, 513316 #### [facility] [address] [place] [address] 81384 Industrial Organization Manager: Robert Ybarra MD Pressure Support. 0 cmH20 [facility] Comment on above: Performed By: #### C D:[id number], 9325901, 081755, 825456, 784672, 473680 #### [facility] [address] [place] [address] 59[address] Industrial Organization Manager: Robert Ybarra MD RATE 0 bpm [facility] Comment on above: Performed By: #### C D:[id number], 8319373, 661678, 294569, 995100, 384397 #### [facility] [address] [place] [address] 31017 Industrial Organization Manager: Robert Ybarra MD TEMP 37.0 degC Normal <=37.0 [facility] Comment on above: Performed By: #### C D:[id number], 1916494, 392271, 195904, 153761, 927947 #### [facility] [address] [place] [address] 69287 Industrial Organization Manager: Robert Ybarra MD Type of Specimen RB Art Normal [facility] Comment on above: Result Comment: RR A RT = Right Artery RB ART = Right Brachial Artery LR ART = Left Radial Artery LB ART = Left Brachial Artery RF ART = Right Femoral Artery LF ART = Left Femoral Artery Performed By: #### C D:107654632, 9728613, 933758, 356943, 894394, 907142 #### [facility] [address] [place] [address] 39693 Industrial Organization Manager: Robert Ybarra MD Ventilation Nasalcan Normal [facility] Comment on above: Performed By: #### C D:[id number], 8078635, 872627, 208600, 636764, 291758 #### [facility] [address] [place] [address] 15938 Industrial Organization Manager: Robert Ybarra MD VT 00 mL Normal [facility] Comment on above: Performed By: #### C D:[id number], 4369909, 422186, 006801, 269088, 716550 #### [facility] [address] [place] [address] 89544 Industrial Organization Manager: Robert Ybarra MD CBCNDon 12-04-2021 Erythrocyte distribution width (RBC) [Ratio] 14.2 % Normal 11.5-14.5 [facility] Comment on above: Performed By: #### C D:069904797, 1309847, 318447, 901224, 670183, 258780 #### [facility] [address] [place] [address] 26355 Industrial Organization Manager: Robert Ybarra MD Hematocrit (Bld) [Volume fraction] 30.1 % Low 36.0-46.0 [facility] Comment on above: Performed By: #### C D:[id number], 8565099, 451341, 866337, 907165, 024215 #### [facility] [address] [place] [address] 46163 Industrial Organization Manager: Robert Ybarra MD Hemoglobin (Bld) [Mass/Vol] 10.1 g/dL Low 12.0-16.0 [facility] Comment on above: Performed By: #### C D:637058845, 9091212, 499683, 489330, 686051, 807195 #### [facility] [address] [place] [address] 05078 Industrial Organization Manager: Robert Ybarra MD Instr WBC ND 13.8 Normal [facility] Comment on above: Performed By: #### C D:070882062, 8381738, 882695, 330524, 650234, 599477 #### [facility] [address] [place] [address] 21229 Industrial Organization Manager: Robert Ybarra MD MCH (RBC) [Entitic mass] 29.8 pg Normal 27.0-34.0 [facility] Comment on above: Performed By: #### C D:860827796, 1487337, 773224, 527834, 427592, 241633 #### [facility] [address] [place] [address] 94619 Industrial Organization Manager: Robert Ybarra MD MCHC (RBC) [Mass/Vol] 33.6 g/dL Normal 32.0-37.0 [facility] Comment on above: Performed By: #### C D:[id number], 6283171, 255491, 671110, 490052, 721395 #### [facility] [address] [place] [address] 09972 Industrial Organization Manager: Robert Ybarra MD MCV (RBC) [Entitic vol] 88.9 fL Normal 80.0-100.0 S [facility] Comment on above: Performed By: #### C D:[id number], 3960866, 042297, 037347, 514498, 634955 #### [facility] [address] [place] [address] 77245 Industrial Organization Manager: Robert Ybarra MD Platelet 294 x1000 Normal 150-450 [facility] Comment on above: Performed By: #### C D:941965581, 9678803, 676191, 779817, 967927, 326302 #### [facility] [address] [place] [address] 96953 Industrial Organization Manager: Robert Ybarra MD Platelet mean volume (Bld) [Entitic vol] 6.9 fL Low 7.4-10.4 [facility] Comment on above: Performed By: #### C D:614079666, 6550709, 521267, 212197, 159020, 131579 #### [facility] [address] [place] [address] 78976 Industrial Organization Manager: Robert Ybarra MD RBC 3.38 x10 Low 4.20-5.40 [facility] Comment on above: Result Comment: Note : RBC morphology is normal unless otherwise stated. Evaluation performed only if differential is requested. Performed By: #### C D:[id number], 8535847, 134735, 097513, 963793, 263542 #### [facility] [address] [place] [address] 28320 Industrial Organization Manager: Robert Ybarra MD WBC 13.8 x10 High 4.5-11.0 [facility] Comment on above: Performed By: #### C D:406405450, 4815630, 494285, 776666, 616256, 508168 #### [facility] [address] [place] [address] 78972 Industrial Organization Manager: Robert Ybarra MD COMPMETAon 12-04-2021 Albumin [Mass/Vol] 2.9 g/dL Low 3.4-5.0 [facility] Comment on above: Performed By: #### C D:[id number], 1508224, 088228, 306688, 163935, 240320 #### [facility] [address] [place] [address] 17298 Industrial Organization Manager: Robert Ybarra MD Albumin/Globulin [Mass ratio] 1.2 {ratio} Normal [facility] Comment on above: Performed By: #### C D:830633077, 2665850, 383365, 515652, 301845, 576616 #### [facility] [address] [place] [address] 66631 Industrial Organization Manager: Robert Ybarra MD Alk Phos 58 unit/L Normal 45-117 [facility] Comment on above: Performed By: #### C D:096141175, 7398356, 254632, 482474, 026170, 934302 #### [facility] [address] [place] [address] 86616 Industrial Organization Manager: Robert Ybarra MD Bilirubin [Mass/Vol] 0.25 mg/dL Normal 0.20-1.00 [facility] Comment on above: Result Comment: Use of this assay is not recommended for patients undergoing treatment with eltrombopag due to the potential for falsely elevated results. Performed By: #### C D:[id number], 4619162, 163991, 715754, 809679, 179769 #### [facility] [address] [place], [place] [address] Industrial Organization Manager: Robert Ybarra MD Calcium [Mass/Vol] 8.5 mg/dL Normal 8.5-10.5 [facility] Comment on above: Performed By: #### C D:457662131, 2581115, 580729, 957122, 839401, 411845 #### [facility] [address] [place], [place] [address] Industrial Organization Manager: Robert Ybarra MD Chloride [Moles/Vol] 106 mmol/L Normal 100-109 [facility] Comment on above: Performed By: #### C D:370504491, 1052301, 929910, 443561, 611692, 810365 #### [facility] [address] [place] [address] 16193 Industrial Organization Manager: Robert Ybarra MD CO2 [Moles/Vol] 22.7 mmol/L Normal 21.0-32.0 [facility] Comment on above: Performed By: #### C D:786345926, 9372466, 618923, 210815, 863723, 081346 #### [facility] [address] [place] [address] 10800 Industrial Organization Manager: Robert Ybarra MD Creatinine [Mass/Vol] 1.3 mg/dL High 0.6-1.0 [facility] Comment on above: Performed By: #### C D:[id number], 7149546, 859816, 207130, 767723, 319977 #### [facility] [address] [place] [address] 09365 Industrial Organization Manager: Robert Ybarra MD GFR AA 46 [facility] Comment on above: Result Comment: Afri can Greek GFR Calc Medical judgement is necessary to interpret GFR. The calculated GFR may not accurately reflect renal status in patients >70 years, women, acutely ill hospitalized patients and patients with acute renal failure or known renal disease. The MDRD GFR formula is valid only for adults greater than 18 years of age. Note: Creatinine clearance (not GFR) should be used for drug dosing. Performed By: #### C D:[id number], 8474185, 504722, 406397, 992804, 962796 #### [facility] [address] [place] [address] 69900 Industrial Organization Manager: Robert Ybarra MD Globulin (S) [Mass/Vol] 2.4 g/dL Normal S [facility] Comment on above: Performed By: #### C D:[id number], 0344455, 865236, 585044, 989683, 231094 #### [facility] [address] [place] [address] 67618 Industrial Organization Manager: Robert Ybarra MD Glomerular Filtration Rate 38 mL/min/1.73m? Normal [facility] Comment on above: Result Comment: Non GFR Calc Medical judgement is necessary to interpret GFR. The calculated GFR may not accurately reflect renal status in patients >70 years, women, acutely ill hospitalized patients and patients with acute renal failure or known renal disease. The MDRD GFR formula is valid only for adults greater than 18 years of age. Note: Creatinine clearance (not GFR) should be used for drug dosing. Performed By: #### C D:[id number], 0959896, 682793, 296589, 655652, 233989 #### [facility] [address] [place] [address] 21399 Industrial Organization Manager: Robert Ybarra MD Glucose [Mass/Vol] 186 mg/dL High 72-100 [facility] Comment on above: Result Comment: Shireen puncture should occur prior to sulfasalazine administration due to the potential for falsely depressed results. Venipuncture should occur prior to sulfapyridine administration due to the potential falsely elevated results. Baseline assay values before administration of sulfasalazine and sulfapyridine therapy would not be affected. Performed By: #### C D:[id number], 0291068, 477631, 585340, 123668, 711054 #### [facility] [address] [place], [place] [address] Industrial Organization Manager: Robert Ybarra MD GOT 123 unit/L High 15-37 [facility] Comment on above: Result Comment: revi ewed Venipuncture should occur prior to sulfasalazine and/or sulfapyridine administration due to the potential for falsely depressed results. Baseline assay values before administration of sulfasalazine and sulfapyridine therapy would not be affected. Performed By: #### C D:[id number], 7236802, 047318, 826388, 488167, 233442 #### [facility] [address] [place], [place] [address] Industrial Organization Manager: Robert Ybarra MD GPT 92 unit/L High 13-56 [facility] Comment on above: Result Comment: revi ewed Venipuncture should occur prior to sulfasalazine and/or sulfapyridine administration due to the potential for falsely depressed results. Baseline assay values before administration of sulfasalazine and sulfapyridine therapy would not be affected. Performed By: #### C D:[id number], 7903593, 114937, 795031, 732035, 551423 #### [facility] [address] [place] [address] Industrial Organization Manager: Robert Ybarra MD Osmolality [Osmolality] 289 mosm/kg Normal 275-295 [facility] Comment on above: Performed By: #### C D:[id number], 0783974, 906167, 268521, 405913, 239523 #### [facility] [address] [place] [address] 67091 Industrial Organization Manager: Robert Ybarra MD Potassium [Moles/Vol] 4.3 mmol/L Normal 3.5-5.1 [facility] Comment on above: Performed By: #### C D:136942957, 7664321, 496117, 582613, 387954, 010506 #### [facility] [address] [place] [address] 28749 Industrial Organization Manager: Robert Ybarra MD Protein [Mass/Vol] 5.3 g/dL Low 6.0-8.5 [facility] Comment on above: Performed By: #### C D:[id number], 5137283, 703243, 068438, 974613, 030830 #### [facility] [address] [place] [address] 59847 Industrial Organization Manager: Robert Ybarra MD Sodium [Moles/Vol] 137 mmol/L Normal 135-145 [facility] Comment on above: Performed By: #### C D:[id number], 4622694, 117237, 558213, 906006, 113200 #### [facility] [address] [place] [address] 88639 Industrial Organization Manager: Robert Ybarra MD Urea nitrogen [Mass/Vol] 42 mg/dL High 10-20 [facility] Comment on above: Performed By: #### C D:162137177, 3631813, 841954, 166863, 224734, 153853 #### [facility] [address] [place] [address] 44130 Industrial Organization Manager: Robert Ybarra MD Urea nitrogen/Creatinine [Mass ratio] 31.8 mg/mg Normal [facility] Comment on above: Performed By: #### C D:[id number], 2953382, 976907, 150014, 721869, 348323 #### [facility] [address] [place] [address] 44130 Industrial Organization Manager: Robert Ybarra MD CPKon 12-04-2021 CPK 3684 unit/L Critically abnormal [address] [place] [address] Comment on above: Result Comment: Crit ical Result(s) called at: 17:08:41 on 12/04/2021 by: Kp dennison, RBR to: TC Performed By: #### C D:[id number], 2934187, 108649, 708713, 788417, 153462 #### [facility] [address] [place] [address] 44130 Industrial Organization Manager: Robert Ybarra MD CPK 2217 unit/L Critically abnormal [address] [place] [address] Comment on above: Result Comment: Crit ical Result(s) called at: 04:10:50 on 12/04/2021 by: Byron dennison, RBR to: SF&XA&&XA&reviewed Performed By: #### C D:[id number], 9782997, 795083, 492177, 301049, 253508 #### [facility] [address] [place] [address] 44130 Industrial Organization Manager: Robert Ybarra MD CPK 926 unit/L High [address] [place] [address] Comment on above: Performed By: #### 1 57125 ####[facility] [address] [place] [address] Medical Director: Robert Ybarra MD Consult Reporton 12-04-2021 Consult Report Patient: YUSUF MEDINA Age: 85 years Sex: Female : 1935 Associated Diagnoses: None Author: YENNY HODGE, [facility] Consult Note IMPRESSION: Mechanical fall. Rhabdomyolysis Type II WI elevated troponin without ACS Afib with slow keith rate on admission, converted to NSR within 12 hours on admission. Diabetes Hypertension Dyslipidemia PLAN: No evidence of ACS. Elevated troponin is secondary to rhabdomyolysis and fall. IV fluid resuscitation per primary. Patient would benefit from outpatient cardiology follow-up to rediscuss the need for ischemic work-up. Echo reviewed: normal study. D.c with 2 weeks monitor for recurernt afib. No OAC (afib in setting of rhabdo, high risk of bleeding). History of Presenting Illness: 85-year-old found down. There was no cardiac arrest or CPR, after rewarming patient regained consciousness without chest pain or shortness of breath. Downtime unknown. Initial EKG showed A. fib with slow ventricular response which eventually converted to sinus rhythm spontaneously. Currently patient has no symptoms and requesting to be discharged. Home Medications (5) Active Actos 45 mg oral tablet 45 mg = 1 tabs, ORAL, DAILY glipiZIDE 2.5 mg oral tablet, extended release 2.5 mg = 1 tabs, ORAL, DAILY metFORMIN 500 mg oral tablet 500 mg = 1 tabs, ORAL, BID Pravachol 20 mg oral tablet 20 mg = 1 tabs, ORAL, QHS Prevacid 30 mg oral delayed release capsule 30 mg = 1 cap(s), ORAL, DAILY Medications (14) Active Scheduled: (5) ENOXAPARIN 30MG/0.3ML INJ 30 mg 0.3 mL, Subcutaneous, QHS HUMAN U100 REGULAR INSULIN Mild Scale, Subcutaneous, QIDWMHS LORAZepam 2mg=ATIVAN INJ 0.5 mg 0.25 mL, IV Push, ONCE PANTOPRAZOLE 40MG TAB 40 mg 1 tabs, ORAL, DAILY SODIUM CHLORIDE 0.9% 1,000 ML, Fluid Bolus IVPB, ONCE Continuous: (1) SODIUM CHLORIDE 0.9% 1,000 mL 1,000 mL, IV, 100 mL/hr PRN: (8) ACETAMINOPHEN 325 MG TAB 650 mg 2 tabs, ORAL, Z0BOIOB ACETAMINOPHEN 325 MG TAB 650 mg 2 tabs, ORAL, X0WOLOG DEXTROSE 50% 50ML SYRINGE/VIAL 12.5 g 25 mL, IV Push, PRN DEXTROSE 50% 50ML SYRINGE/VIAL 25 g 50 mL, IV Push, PRN GLUCAGON 1MG INJ 1 mg, IM, PRN GLUCOSE GEL 15GM/42ML 15 g 1 packets, ORAL, PRN GLUCOSE GEL 15GM/42ML 30 g 2 packets, ORAL, PRN ONDANSETRON=ZOFRAN INJ 4 mg 2 mL, IV Push, [id number] Allergies (1) Active Reaction No Known Allergies None Documented Review of Systems: As per HPI, all other systems reviewed and negative Cardiac History: As above Past Medical History: As above Surgical History: Reviewed Social History: History No qualifying data available Family History: No qualifying data available. PHYSICAL EXAM: Vital Signs (last 24 hrs) Last Charted Temp Rectal 37.8 degC (DEC 04 13:00) Heart Rate Peripheral 77 bpm (DEC 04:00) Resp Rate H 26br/min (DEC 04 14:) SBP 124 mmHg (DEC 04 14:00) DBP L 45mmHg (DEC 04:00) BMI 23.87 (DEC 04 04:45) General: Awake alert oriented not in acute distress. Neck: No JVD. no carotid bruit no neck stiffness CV: RRR normal S1-S2, no murmur, no gallop. PMI not displaced Lungs: Good bilateral air entry, clear to auscultation. No crackles no wheezing. Abdomen: Soft bowel sounds positive nontender nondistended. No organomegaly. Extremities: Peripheral pulse positive throughout. No lower extremity edema. No clubbing no cyanosis. Neuro: Cranial nerves grossly intact. No focal deficit. I/O's and DAILY WEIGHTS Default ECG/Telemetry: NSR with no acute ischemic changes Radiology: CXR without infiltrate or effusion LABS: Labs (Last four charted values) WBC H 13.8 (DEC 04) H 22.6 (DEC 03) Hgb L 10.1 (DEC 04) L 10.1 (DEC 03) Hct L 30.1 (DEC 04) L 31.2 (DEC 03) Plt 294 (DEC 04) 347 (DEC 03) Na 137 (DEC 04) 138 (DEC 03) K 4.3 (DEC 04) H 5.5 (DEC 03) CO2 22.7 (DEC 04) L 18.9 (DEC 03) Cl 106 (DEC 04) 105 (DEC 03) Cr H 1.3 (DEC 04) H 1.6 (DEC 03) BUN H 42 (DEC 04) H 45 (DEC 03) Glucose Random H 186 (DEC 04) H 270 (DEC 03) Mg 1.6 (DEC 03) Ca 8.5 (DEC 04) 8.9 (DEC 03) INR 1.0 (DEC 03) Total CK C 2217 (DEC 04) H 926 (DEC 03) Lipids No qualifying data available. BNP No qualifying data available. Normal [facility] Consult Report Patient: YUSUF MEDINA Age: 85 years Sex: Female : 1935 Associated Diagnoses: None Author: ERIC DENTON MD History of Present Illness 85-year-old lady. Admitted 12/03/2021 Fell. Also confused. History was limited also because of language barrier. Apparently lives alone. Apparently had gone to the chicken coop to cook pickled meat eggs. She fell. Unknown why she fell or how long she was on the floor. She was hypothermic when she came in. Blood pressure was very low. Oxygen saturation was low. CPK elevated. Hypothermia improved and bradycardia resolved. She remained confused. I talked to the nursing staff. This morning she is much more awake and alert. She is able to speak little bit of [place]an. Her son lives in the [facility]. She lives alone. She said she went to cook pickled meat eggs in the chicken coop and there was a lot of ice. She slipped on the ice and fell on her left side. She does not remember how long she was down. No headache. No double vision or paralysis. No difficulty breathing or chest pain. No tingling numbness. Review of Systems He said she was feeling fine except for some soreness left side. Does not use a cane or a walker at home. This had never happened before. Health Status Allergies: Allergic Reactions (All) No Known Allergies Medications (16) Active Scheduled: (5) ENOXAPARIN 30MG/0.3ML INJ 30 mg 0.3 mL, Subcutaneous, QHS HUMAN U100 REGULAR INSULIN Mild Scale, Subcutaneous, QIDWMHS LORAZepam 2mg=ATIVAN INJ 0.5 mg 0.25 mL, IV Push, ONCE PANTOPRAZOLE 40MG TAB 40 mg 1 tabs, ORAL, DAILY SODIUM CHLORIDE 0.9% 1,000 ML, Fluid Bolus IVPB, ONCE Continuous: (1) SODIUM CHLORIDE 0.9% 1,000 mL 1,000 mL, IV, 100 mL/hr PRN: (10) ACETAMINOPHEN 325 MG TAB 650 mg 2 tabs, ORAL, [id number] ACETAMINOPHEN 325 MG TAB 650 mg 2 tabs, ORAL, [id number] DEXTROSE 50% 50ML SYRINGE/VIAL 12.5 g 25 mL, IV Push, PRN DEXTROSE 50% 50ML SYRINGE/VIAL 25 g 50 mL, IV Push, PRN GLUCAGON 1MG INJ 1 mg, IM, PRN GLUCOSE GEL 15GM/42ML 15 g 1 packets, ORAL, PRN GLUCOSE GEL 15GM/42ML 30 g 2 packets, ORAL, PRN ONDANSETRON=ZOFRAN INJ 4 mg 2 mL, IV Push, [id number] PERFLUTREN 2 ML INJ 2 ML, IV Push, PRN SODIUM CHLORIDE SYR/VIAL 10ML 8 mL, IV Push, PRN Histories Relevant past history, personal history, family history, social history, medication history, allergies and remote and recent investigations reviewed. Hypertension Diabetes type Hyperlipidemia She was on Actos glipizide metformin Mobic Norvasc Pravachol Prevacid Zestoretic CT head nonspecific periventricular white matter changes. Chest x-ray no acute finding. BUN 42 creatinine 1.3?it was 1.6 when she came in magnesium 1.6 CPK 2217 albumin 2.9 troponin elevated INR 1 WBC 13 K per microliter hemoglobin hematocrit 10 and 30 platelet count 294,000 pH was 7.19 with the PO2 of 64 when she came in but now pH is 7.36 with PO2 of 82 bicarbonate 19 Urine toxicology screen negative CT cervical spine no compression deformity or traumatic malalignment In the hospital she is on insulin enoxaparin and pantoprazole Today's vitals stable respiration 22 pressure 122/55 temperature 37.8 ?C Physical Examination VS/Measurements Vital Signs (last 24 hrs) Last Charted Temp Rectal 37.8 degC (DEC 04 08:32) Heart Rate Peripheral 77 bpm (DEC 04 08:00) Resp Rate H 22br/min (DEC 04:) SBP 122 mmHg (DEC 04:) DBP L 55mmHg (DEC 04 08:) BMI 23.87 (DEC 04 04:45) Neurologic exam: Mental Status: Speech and language were okay. She spoke in broken [place]an. Good eye contact. Followed commands. She knew where she was, where she lived. Told me about her son. She could name objects. Cranial nerves: Cranial nerves were examined. Pupils were equal and sluggishly reactive to light. External ocular movements were normal. Visual aguilar were normal. Face was symmetric and tongue was in the midline. Soft palate moved normally. Facial sensations were normal. Hearing was normal. Neck: Supple Gait and station: Not evaluated Strength. Normal Muscle Tone. Normal Abnormal involuntary movements. None Atrophy/fasciculations . None Muscle stretch reflexes. Normal in the upper limbs, difficult to obtain in the lower limbs Pathologic reflexes. Absent Sensory. Normal to pinprick and light touch Co-ordination. Difficult to evaluate Cardiovascular: Normal first & second heart sounds. No murmur. No cranial or cervical bruits. Chest: Chest expansion normal. Breath sounds normal. No adventitious sounds. Review / Management Laboratory Results Labs (Last four charted values) WBC H 13.8 (DEC 04) H 22.6 (DEC 03) Hgb L 10.1 (DEC 04) L 10.1 (DEC 03) Hct L 30.1 (DEC 04) L 31.2 (DEC 03) Plt 294 (DEC 04) 347 (DEC 03) Na 137 (DEC 04) 138 (DEC 03) K 4.3 (DEC 04) H 5.5 (DEC 03) CO2 22.7 (DEC 04) L 18.9 (DEC 03) Cl 106 (DEC 04) 105 (DEC 03) Cr H 1.3 (DEC 04) H 1.6 (DEC 03) BUN H 42 (DEC 04) H 45 (DEC 03) Glucose Random (more content not included)... Normal [facility] Consult Report Patient: YUSUF MEDINA Age: 85 years Sex: Female : 1935 Associated Diagnoses: None Author: DIANE BARRETT MD Basic Information Time Seen: Date & Time 12/04/2021 07:23:00. Source of history: Medical record, Patient. History limitation: Language barrier. History of Present Illness Patient was referred to trauma consult after she was found outside the house unresponsive. There was no history of traumatic injuries. Patient was hypotensive and hypothermic. Since admission to the hospital, warming up patient feels much better. She has no significant complaints except some discomfort in the left upper extremity. Review of Systems Constitutional: Negative except as documented in history of present illness. Eye: Negative except as documented in history of present illness. Ear/Nose/Mouth/Throat: Negative except as documented in history of present illness. Respiratory: Negative except as documented in history of present illness. Cardiovascular: Negative except as documented in history of present illness. Gastrointestinal: Negative except as documented in history of present illness. Genitourinary: Negative except as documented in history of present illness. Hematology/Lymphatics: Negative except as documented in history of present illness. Endocrine: Negative except as documented in history of present illness. Immunologic: Negative except as documented in history of present illness. Musculoskeletal: Negative except as documented in history of present illness. Integumentary: Negative except as documented in history of present illness. Neurologic: Negative except as documented in history of present illness. Health Status Allergies: Allergies (1) Active Reaction No Known Allergies None Documented Current medications: (Selected) Inpatient Medications Ordered 0.9%NaCl (Normal Saline) 1,000 mL: 100 mL/hr, IV Ativan: 0.5 mg = 0.25 mL, IV Push, ONCE Definity: 2 ML, IV Push, PRN, PRN: Suboptimal Images - Echo Dextrose 50% injection: 12.5 g = 25 mL, IV Push, PRN, PRN: See Note Line Dextrose 50% injection: 25 g = 50 mL, IV Push, PRN, PRN: See Note Line Lovenox: 30 mg = 0.3 mL, Subcutaneous, QHS Normal Saline Bolus (0.9%NaCl): 1,000 ML, 1000 mL/hr, Fluid Bolus IVPB, ONCE Novolin R coverage: Mild Scale, Subcutaneous, QIDWMHS Saline Flush: 8 mL, IV Push, PRN, PRN: Suboptimal Images - Echo Tylenol: 650 mg = 2 tabs, ORAL, [id number], PRN: Mild Pain Tylenol: 650 mg = 2 tabs, ORAL, [id number], PRN: Temperature Above 102 Zofran: 4 mg = 2 mL, IV Push, [id number], PRN: Nausea/Vomiting glucagon: 1 mg, IM, PRN, PRN: See Note Line glucose 15 g/42 mL oral gel: 15 g = 1 packets, ORAL, PRN, PRN: See Note Line glucose 15 g/42 mL oral gel: 30 g = 2 packets, ORAL, PRN, PRN: See Note Line pantoprazole: 40 mg = 1 tabs, ORAL, DAILY Documented Medications Documented Actos 45 mg oral tablet: 45 mg = 1 tabs, ORAL, DAILY, 30 tabs, 0 Refill(s) Mobic 15 mg oral tablet: 15 mg = 1 tabs, ORAL, DAILY, 30 tabs, 0 Refill(s) Norvasc 5 mg oral tablet: 5 mg = 1 tabs, ORAL, DAILY, 30 tabs, 0 Refill(s) Pravachol 20 mg oral tablet: 20 mg = 1 tabs, ORAL, QHS, 30 tabs, 0 Refill(s) Prevacid 30 mg oral delayed release capsule: 30 mg = 1 cap(s), ORAL, DAILY, 0 Refill(s) Zestoretic 20 mg-25 mg oral tablet: 1 tabs, ORAL, DAILY, 30 tabs, 0 Refill(s) glipiZIDE 2.5 mg oral tablet, extended release: 2.5 mg = 1 tabs, ORAL, DAILY, 30 tabs, 0 Refill(s) metFORMIN 500 mg oral tablet: 500 mg = 1 tabs, ORAL, BID, 60 tabs, 0 Refill(s), Medications (16) Active Scheduled: (5) ENOXAPARIN 30MG/0.3ML INJ 30 mg 0.3 mL, Subcutaneous, QHS HUMAN U100 REGULAR INSULIN Mild Scale, Subcutaneous, QIDWMHS LORAZepam 2mg=ATIVAN INJ 0.5 mg 0.25 mL, IV Push, ONCE PANTOPRAZOLE 40MG TAB 40 mg 1 tabs, ORAL, DAILY SODIUM CHLORIDE 0.9% 1,000 ML, Fluid Bolus IVPB, ONCE Continuous: (1) SODIUM CHLORIDE 0.9% 1,000 mL 1,000 mL, IV, 100 mL/hr PRN: (10) ACETAMINOPHEN 325 MG TAB 650 mg 2 tabs, ORAL, [id number] ACETAMINOPHEN 325 MG TAB 650 mg 2 tabs, ORAL, [id number] DEXTROSE 50% 50ML SYRINGE/VIAL 12.5 g 25 mL, IV Push, PRN DEXTROSE 50% 50ML SYRINGE/VIAL 25 g 50 mL, IV Push, PRN GLUCAGON 1MG INJ 1 mg, IM, PRN GLUCOSE GEL 15GM/42ML 15 g 1 packets, ORAL, PRN GLUCOSE GEL 15GM/42ML 30 g 2 packets, ORAL, PRN ONDANSETRON=ZOFRAN INJ 4 mg 2 mL, IV Push, [id number] PERFLUTREN 2 ML INJ 2 ML, IV Push, PRN SODIUM CHLORIDE SYR/VIAL 10ML 8 mL, IV Push, PRN Problem list: Active Problems (2) At risk for falls Gait difficulty Histories Past Medical History: Hypertension Hyperlipidemia Diabetes Family History: Family history reviewed., Cinthia history was reviewed, it is irrelevant to the patient complaints and the problems Procedure history: No active procedure history items have been selected or recorded. Social History Social History No active social history has been recorded Psychosocial History No activ (more content not included)... Normal [facility] ED Discharge Educationon ED Discharge Education Normal [facility] ED Patient Summaryon 022 ED Patient Summary [facility] Emergency Department Discharge Instructions [address] [place] [address] \.br\(Patient Copy)\.br\ \.br\Name: YUSUF MEDINA : 1935 \.br\Allergies: No Known Allergies\.br\Diagnosi s: Diagnoses This Visit\.br\ Abrasion of right elbow (S50.311A)\.br\ acute Hypothermia (T68.XXXA)\.br\ Contusion of right thigh (S70.11XA)\.br\ Fall ([id number])\.br\ Hypothermia due to exposure ([id number])\.br\\ .br\\.br\ \.br\ Visit Date: 12/03/2021 19:54:53 \.br\ Current Date Time: 12/04/2021 01:06:15 \.br\Address: [address] [place] [id number] \.br\ \.br\ \.br\Primary Care Provider: \.br\Name: RADHA CRAMER\.br\ \.br\ \.br\Emergency Department Care Providers: \.br\ Primary Physician: IDA ALMODOVAR MD \.br\ \.br\ \.br\\.br\Thank you for choosing [facility] for your emergency care. You are very important to us. Our goal is to demonstrate our high quality medical care, and provide you with a very good patient experience.\.br\\.br\Y ou may receive a survey about our service. Please take the time to complete the survey and return it so we can continue to enhance our service.\.br\\.br\Than k you again for allowing the [facility] Emergency Department to care for your medical needs. If you have questions about your care or follow up information please contact us at [phone].\.br\\.br \ Follow-Up Instructions\.br\ \.b r\YUSUF MEDINA has been given these follow-up instructions:\.br\\.br \Patient Education Materials\.br\ \.br\YUSUF RUDD has been given the following patient education materials:\.br\\.br\ \.br\BEFORE YOU LEAVE\.br\\.br\Set up your [facility] [employer] account!\.br\ \.br\[employer] is a secure, online health management tool that connects you to portions of your hospital-based electronic medical record, allowing you to see test results, manage appointments, access discharge care instructions and much more.\.br\ \.br\You can access [employer] from a computer, tablet or smartphone. Enrollment/registratio n is required. If you do not have a [employer] account, please provide us with an email address before you leave so that we may set up an account for you.\.br\ \.br\New to [employer]!\.br\You may now securely connect some of the health management apps you use (e.g., fitness trackers, dietary trackers, etc.) to your health record in [facility] [employer]. This new feature provides expanded access to your health and wellness data, which will help you and your care team make informed decisions about your health care. \.br\If you are interested in using a health management gordo not currently connected to [employer], contact a [employer] Keyboard Operator at [phone] or [email or web address]. We will determine if the gordo meets the technical requirements to connect to [facility] [employer] and assure the security of your private health information.\.br\ \.br\ Medication Information\.br\ \.br \YUSUF MEDINA has been given the following medication information:\.br\Only Take The Medicines On This List. \.br\Keep This List and Bring It To Your Next Appointment. \.br\Medicines To Take At Home: \.br\ Medicine Name\.br\ (Generic Name) Amount to Take How to Take it How Often to Take it Additional Instructions Next Dose Due \.br\ Prevacid 30 mg oral delayed release capsule\.br\(lansopraz ole) 30 mg By Mouth DAILY \.br\\.br\Understandin g your home medicine is important to keeping you healthy. If you are taking medications that are not on the preceding list, please call your doctor to see if you are to continue that medication. It is important that you do not skip or make up doses. If you are ordered an antibiotic, finish taking all the medicine, unless your doctor tells you otherwise. Call your doctor if you have questions or problems. Take the medicine list with you to all follow up appointments.\.br\ \.br\If you or a loved one is struggling with a mental health or substance abuse issue, please call [facility] at [phone] or the National Suicide Prevention Lifeline at .\.br\ \.br\\.br\ \.br\ \.br\CAROL Almazan VIORICA, have received the follow-up provider(s) list, medication information and patient education materials/instructions and have verbalized understanding.\.br\ \.br\ \.br\Patient Signature \.br\Kalen e \.br\Leif e \.br\ \.br\ \.br\ Provider Signature \.br\Kalen e \.br\Leif e Normal [facility] ED Physician Reporton 2021 ED Physician Report Patient: YUSUF MEDINA Age: 85 years Sex: Female : 1935 Associated Diagnoses: acute Hypothermia; Contusion of right thigh; Abrasion of right elbow Author: SABRINA MOHAN MD Basic Information Time seen: Date & time 12/03/2021 19:54:00, Immediately upon arrival. History source: Brother, son, EMS. Arrival mode: Ambulance. History limitation: Clinical condition. History of Present Illness The patient presents following fall. The onset was unknown. The occurrence was unknown. The fall was described as fell from ground level. The location where the incident occurred was at home. The degree at present is severe. The exacerbating factor is none. The relieving factor is none. Risk factors consist of age. Therapy today: emergency medical services. Patient lives by herself. She attends to her own ADLs. Patient was found on the ground outside. Unknown how long. Family was concerned when she did not answer their phone calls. They came over and found her outside in the snow. She only had on a sweater. Patient has chickens. She has eggs in her pocket and was probably outside to collect eggs. Level 2 trauma called by EMS.. Review of Systems Additional review of systems information: Unable to obtain due to: Clinical condition. Health Status Allergies: No known allergies. Medications: Per nurse's notes. Immunizations: Per nurse's notes. Menstrual history: Per nurse's notes. Past Medical/ Family/ Social History Medical history: Reviewed as documented in chart. Surgical history: Reviewed as documented in chart. Family history: Not significant. Social history: Reviewed as documented in chart. Physical Examination Vital Signs Per nurse's notes. General Skin: Dry, cold. Head: Normocephalic, atraumatic. Neck: Supple, trachea midline, no tenderness. Eye: Pupils are equal, round and reactive to light, extraocular movements are intact, normal conjunctiva. Ears, nose, mouth and throat: Tympanic membranes clear, oral mucosa moist, no pharyngeal erythema or exudate. Cardiovascular: Regular rate and rhythm, No murmur, Bradycardia. Respiratory: Lungs are clear to auscultation, respirations are non-labored, breath sounds are equal. Chest wall: No tenderness, No deformity. Back: Nontender, Normal range of motion, Normal alignment, no step-offs. Musculoskeletal: No tenderness, no swelling, no deformity, Proximal upper extremity: Right, elbow, abrasion, Lower extremity: Right, lateral, thigh, abrasion, ecchymosis. Gastrointestinal: Soft, Nontender, Non distended, Normal bowel sounds. Genitourinary: No tenderness. Lymphatics: No lymphadenopathy. Psychiatric: Mood and affect: Non-communicative, flat. Neurological Level of consciousness: Unresponsive, Cognitive function: Oriented x 0. Medical Decision Making Electrocardiogram: Time 12/03/2021 20:47:00, rate 37, No ST-T changes, normal SC & QRS intervals, EP Interp, The Rhythm is sinus bradycardia. , Ectopy Occasional, svc, QT interval Prolonged 690 seconds. Results review: Lab results 12/03/2021 20:55 EST O2 L/M 15.0 NA Ventilation Mask VT 0 mL NA RATE 0 bpm NA PEEP 0.0 cmH20 NA Pressure Support. 0 cmH20 NA iPAP 0 cmH20 NA ePAP 0 cmH20 NA Type of Specimen Venous pH 7.196 CRIT PCO2 41.0 mmHg NORMAL PO2 64.6 mmHg LOW HCO3 15.5 mmol/L LOW Base Excess -11.8 mmol/L NA O2 Saturation 86.6 % NA MAGGIE TEST NA FIO2 100 % NA PO2/FiO2 Ratio 65 LOW 12/03/2021 20:49 EST pH Venous 7.196 CRIT 12/03/2021 20:10 EST BUN 45 mg/dL HI Na 138 mmol/L NORMAL K 5.5 mmol/L HI Chloride 105 mmol/L NORMAL CO2, venous 18.9 mmol/L LOW Glucose 270 mg/dL HI Creatinine 1.6 mg/dL HI Total Protein 5.6 g/dL LOW Calcium 8.9 mg/dL NORMAL Bilirubin, Total 0.26 mg/dL NORMAL Alk Phos 60 unit/L NORMAL GOT 61 unit/L HI GPT 49 unit/L NORMAL BUN/Creat Ratio 27.3 NA Calculated Osmolality 297 mOsm/kg HI Globulin 2.4 g/dL NA A/G Ratio 1.3 NA ALB 3.2 g/dL LOW Troponin HS 0 Hr 66 pg/mL HI Glomerular Filtration Rate 30 mL/min/1.73m? NA GFR AA 36 NA Protime Patient 11.7 seconds NORMAL INR 1.0 NA APTT Patient 30.4 seconds NORMAL WBC 22.6 x106/uL LOW \.br\ HGB 10.1 g/dL LOW \.br\ HCT 31.2 % LOW \.br\ MCV 90.9 fL NORMAL \.br\ MCH 29.6 pg NORMAL \.br\ MCHC 32.6 g/dL NORMAL \.br\ RDW 14.6 HI \.br\ Platelet 347 x1000 NORMAL \.br\ MPV 6.7 fL LOW \.br\ Nucleated RBC 0 /100WBC NA \.br\ Scan Differential Diff Scd \.br\ Lymph % 24.2 % NA \.br\ White % 3.7 % NA \.br\ Neutrophil % 70.8 % NA \.br\ Eosin % 0.9 % NA \.br\ Basos % 0.4 % NA \.br\ Lymph Count 5.46 x1000 HI \.br\ White Count 0.84 x1000 NORMAL \.br\ Neutrophil Count (ANC) 15.99 x1000 HI \.br\ Eos Count 0.21 x1000 NORMAL \.br\ Baso Count 0.09 x1000 NORMAL \.br\12/03/2021 20:06 EST BUN, I-Stat 43 mg/dL HI \.br\ Na, I-Stat 134 mmol/L LOW \.br\ K, I-Stat 5.2 mmol/L HI \.br\ CL, I-Stat 104 mmol/L NORMAL \.br\ CO2, I-Stat 21 mmol/L LOW \.br\ Glucose, I-Stat 268 mg/dL H (more content not included)... Normal [facility] ED Progress Noteon ED Progress Note 12/03/211954 PT TO ROOM 12 ARRIVED BY SQUAD TRAUMA CALLED FROM FIELD, SEE PAPER CHART FOR INFO. Normal [facility] HEMOon 12-04-2021 DIFF? No Normal [facility] Comment on above: Performed By: #### 1 [id number], [id number], [id number], [id number] ####[facility] [address] [place] [address] Medical Director: Robert Ybarra MD Erythrocyte distribution width (RBC) [Ratio] 14.7 % High 11.5-14.5 [facility] Comment on above: Performed By: #### 1 , [id number], 064260, [id number] ####[facility] [address] [place], [place] [id number]) [phone] Director: Robert Ybarra MD Hematocrit (Bld) [Volume fraction] 30.7 % Low 36.0-46.0 [facility] Comment on above: Performed By: #### 1 , 789180, 634300, [id number] ####[facility] [address] [place], [place] [id number]) [phone] Director: Robert Ybarra MD Hemoglobin (Bld) [Mass/Vol] 10.4 g/dL Low 12.0-16.0 [facility] Comment on above: Performed By: #### 1 , [id number], 644294, [id number] ####[facility] [address] [place], [place] [id number]) [phone] Director: Robert Ybarra MD Instr WBC 10.1 Normal [facility] Comment on above: Performed By: #### 1 , 177509, 053152, [id number] ####[facility] [address] [place], [place] [id number]) [phone] Director: Robert Ybarra MD MCH (RBC) [Entitic mass] 30.2 pg Normal 27.0-34.0 [facility] Comment on above: Performed By: #### 1 , 737165, 238821, [id number] ####[facility] [address] [place], [place] [id number]) [phone] Director: Robert Ybarra MD MCHC (RBC) [Mass/Vol] 33.9 g/dL Normal 32.0-37.0 [facility] Comment on above: Performed By: #### 1 , 778368, 796990, [id number] ####[facility] [address] [place] [address] Medical Director: Robert Ybarra MD MCV (RBC) [Entitic vol] 89.3 fL Normal 80.0-100.0 S [facility] Comment on above: Performed By: #### 1 15984, 750750, 910029, [id number] ####[facility] [address] [place] [address] Medical Director: Robert Ybarra MD Nucleated RBC 0 /100WBC Normal [facility] Comment on above: Performed By: #### 1 38857, 710018, 214014, [id number] ####[facility] [address] [place] [address] Medical Director: Robert Ybarra MD Platelet 310 x1000 Normal 150-450 [facility] Comment on above: Performed By: #### 1 88470, 428939, 084377, [id number] ####[facility] [address] [place] [address] Medical Director: Robert Ybarra MD Platelet mean volume (Bld) [Entitic vol] 7.2 fL Low 7.4-10.4 [facility] Comment on above: Performed By: #### 1 43219, 803881, 326696, [id number] ####[facility] [address] [place] [address] Medical Director: Robert Ybarra MD RBC 3.44 x10 Low 4.20-5.40 [facility] Comment on above: Result Comment: Note : RBC morphology is normal unless otherwise stated. Evaluation performed only if differential is requested. Performed By: #### 1 18463, 212412, 321690, [id number] ####[facility] [address] [place] [address] Medical Director: Robert Ybarra MD WBC 10.1 x10 Normal 4.5-11.0 [facility] Comment on above: Performed By: #### 1 41103, 709517, 897835, [id number] ####[facility] [address] [place] [address] Medical Director: Robert Ybarra MD HGB A1Con 12-04-2021 HbA1c (Bld) [Mass fraction] 6.7 % Normal [facility] Comment on above: Result Comment: Refe rence Range: Diabetic Greater than or equal to 6.5 % Prediabetic 5.7?6.4 % Normal Less than 5.7 % Performed By: #### 1 [id number] ####[facility] [address] [place] [address] Medical Director: Robert Ybarra MD IRON GROUPon 12-04-2021 Iron [Mass/Vol] 36 ug/dL Low 40-170 [facility] Comment on above: Result Comment: Resu lts may be inaccurate if performed within 14 days of IV iron dextran administration. Performed By: #### 1 94020, 788546, 716822, [id number] ####[facility] [address] [place] [address] Medical Director: Robert Ybarra MD Saturation 9.8 % Low 20.0-50.0 [facility] Comment on above: Performed By: #### 1 83675, 369330, 080641, 0480771 ####[facility] [address] [place] [address] Medical Director: Robert Ybarra MD TIBC 367 ug/dl Normal 250-450 [facility] Comment on above: Result Comment: Resu lts may be inaccurate if performed within 14 days of IV iron dextran administration. Performed By: #### 1 27620, 641068, 103889, [id number] ####[facility] [address]mfbe[address] [place] [address] Medical Director: Robert Ybarra MD MG LEVELon 01-21-2022 Magnesium [Mass/Vol] 1.6 mg/dL Normal 1.6-2.6 [facility] Comment on above: Performed By: #### C D:[id number], 7176876, 097937, 400286, 126722, 889796 #### [facility] [address] [id number] Industrial Organization Manager: Robert Ybarra MD Nursing Clinical Noteon 11-15 Nursing Clinical Note Bedside report received. Pt awake in bed, call light within reach bed alarm active. 1000 Mercedes-Sister in Law; updated via phone, all questions answered. Dr. Denton at bedside, orders received to cancel MRI. Dr. Asencio at bedside, no new orders. 1130 Dr. Penny at bedside, updated on Pt condition and family concerns, plan is for discharge today. 1215 Son Nathaniel at bedside, updated on Pt condition and plan for discharge today, all questions answered, son is agreeable for discharge today. 1400 PT at bedside to work with and assess Pt needs, Pt ambulated to bathroom and in hallway with PT and use of walker. 1500 Dr. Beckford at bedside, updated on Pt condition. Dr. Beckford ordered STAT labs, wants Pt to stay until results are in. Son/Patient updated on POC, all questions answered. Pt safety maintained through discharge. Bed/Chair Alarms active and call light within reach at all times. Hourly rounding completed. Normal [facility] Nursing Clinical Note got report from ED RN, pt arrived on 4L NC, with bear hugger and blankets over patient. pt was alert and calm. pt was bathed, assessed, and the bear hugger was reapplied with blankets and Fuentes temp probe connected and reading. pt temp was 34.8 C and is slowly rising. pt family at bedside and they were updated on the improvement in her condition. NC weaned down to 2L and pt was able to drink some water and communicate her personal needs. pt is resting in bed with eyes closed and call arevalo in reach. side rails are up. will continue to monitor. took pictures of bruising and documented it. Missing Attachment buttock can be viewed in source system Missing Attachment right elbow can be viewed in source system 0400 pt complaining of pain in her right foot, repositioned and gave tylenol for pain. Pt also able to tolerate water and pudding. pt is more alert and able to explain what happened in regards to her falling. Dionna updated on the patients progress. Temp is also 37.5, bear hugger is still on. Normal [facility] POC Glucoseon 12-04-2021 Glucose [Mass/Vol] 152 mg/dL High 72-100 [facility] Comment on above: Performed By: #### C D:[id number], [id number], 749568, 805116, 648740, 008668 #### [facility] [address] [place] [address] Industrial Organization Manager: Robert Ybarra MD Glucose [Mass/Vol] 177 mg/dL High 72-100 [facility] Comment on above: Performed By: #### C D:[id number], 8355698, 355501, 347834, 815210, 071593 #### [facility] [address] [place] [address] Industrial Organization Manager: Robert Ybarra MD Progress Note-Physicianon Progress Note-Physician Patient: YUSUF MEDINA Age: 85 years Sex: Female : 1935 Associated Diagnoses: None Author: GERTRUDIS BECKFORD DO Patient with Rhabdo and numbers worsening but she insists on going home. I would ask if she goes home to drink a glass of juice alternating with a glass of water every 3 hrs for 24. Recheck CPK and BMP in 24 hrs. Gertrudis Beckford DO Tutoring Clinician Normal [facility] Progress Note-Physician Patient: YUSUF MEDINA Age: 85 years Sex: Female : 1935 Associated Diagnoses: Abrasion of right elbow; acute Hypothermia; Contusion of right thigh; Fall; Hypothermia due to exposure; Chronic kidney disease (CKD), stage III (moderate); Diabetes mellitus type II, controlled Author: NIGHAT PENNY MD Subjective The patient reports he feels back to normal and wants to go home. She does not consent to short-term [place] facility placement. The family will be available to stay with her until she completely recovered with son arriving from [place] this afternoon. Objective Vital Signs (last 24 hrs) Last Charted Temp Rectal 37.8 degC (DEC 04 13:00) Heart Rate Peripheral 77 bpm (DEC 04:) Resp Rate H 26br/min (DEC 04:) SBP 124 mmHg (DEC 04:00) DBP L 45mmHg (DEC 04:00) BMI 23.87 (DEC 04 04:45) General: Alert and oriented. Appearance: Within normal limits, Calm. HENT: Normocephalic. Neck: Supple. Respiratory: Lungs are clear to auscultation, Respirations are non-labored, Breath sounds are equal, Symmetrical chest wall expansion. Pattern: Regular. Cardiovascular: Normal rate, Regular rhythm, S1, S2, No murmur, Non-displaced PMI. Gastrointestinal: Soft, Non-tender, Non-distended, Normal bowel sounds, No organomegaly. Musculoskeletal: Normal range of motion. Integumentary: Warm, Dry, No rash. Neurologic: Alert, Oriented, Normal sensory, Normal motor function, No focal deficits, Cranial Nerves II-XII are grossly intact. Psychiatric: Cooperative, Appropriate mood & affect. Review / Management Labs (Last four charted values) WBC H 13.8 (DEC 04) H 22.6 (DEC 03) Hgb L 10.1 (DEC 04) L 10.1 (DEC 03) Hct L 30.1 (DEC 04) L 31.2 (DEC 03) Plt 294 (DEC 04) 347 (DEC 03) Na 137 (DEC 04) 138 (DEC 03) K 4.3 (DEC 04) H 5.5 (DEC 03) CO2 22.7 (DEC 04) L 18.9 (DEC 03) Cl 106 (DEC 04) 105 (DEC 03) Cr H 1.3 (DEC 04) H 1.6 (DEC 03) BUN H 42 (DEC 04) H 45 (DEC 03) Glucose Random H 186 (DEC 04) H 270 (DEC 03) Mg 1.6 (DEC 03) Ca 8.5 (DEC 04) 8.9 (DEC 03) INR 1.0 (DEC 03) Total CK C 2217 (DEC 04) H 926 (DEC 03) Impression and Plan Diagnosis Abrasion of right elbow - [id number]-[id number] S50.311A, Emergency medicine, Medical. Acute Hypothermia - [id number]-SJ T68.XXXA, Emergency medicine, Medical. Contusion of right thigh - [id number]-WH S70.11XA, Emergency medicine, Medical. Fall - PNED [id number], Medical. Hypothermia due to exposure - PNED [id number], Medical. She has recovered from hypothermic episode and is now at normal baseline mental status and does not consent to [place] [facility] [place] facility placement. She will be discharged to home with home health care and family will monitor condition and safety.. Diagnosis Chronic kidney disease (CKD), stage III (moderate) - GNW18-MB N18.30, Medical. The patient's creatinine level is at their normal baseline. There is no significant changes in the patient's GFR. The patient's present medications will be continued. The patient's renal function will be monitored.. Diagnosis Diabetes mellitus type II, controlled - NOO93-TO E11.9, Medical. The patient's blood sugars are adequately controlled. The present medications will be continued, with glucometer checks before meals and at bedtime and sliding scale coverage.. Education and Follow-up: Discharge Planning: Plan to discharge ( To home, Total time that I spent on this patient's discharge is greater than 30 minutes; 32minutes total. ). [facility] T4on 12-04-2021 T4 [Mass/Vol] 9.9 ug/dL Normal 4.5-10.9 [facility] Comment on above: Result Comment: Shireen puncture should occur prior to sulfasalazine administration due to the potential for falsely elevated results. Baseline assay values before administration of sulfasalazine and sulfapyridine therapy would not be affected. Performed By: #### C D:[id number], 0414831, 890425, 597771, 520435, 226889 #### [facility] [address] [place], [place] [address] Industrial Organization Manager: Robert Ybarra MD TROPONIN HS 2HRon 12-04-2021 Delta Troponin 2 Hr 39 pg/mL High 0-14 [facility] Comment on above: Result Comment: The term acute myocardial infarction should be used when there is acute myocardial injury with clinical evidence of acute myocardial ischemia and the rise or fall of serial Troponin HS values (delta troponin) greater than or equal to 15 pg/mL with at least one Troponin HS value above the 99th percentile reference range Performed By: #### C D:[id number] #### [facility] [address] [place], [place] [address] Industrial Organization Manager: Robert Ybarra MD Troponin HS 2 Hr 105 pg/mL [facility] 3-54 [facility] Comment on above: Performed By: #### C D:[id number] #### [facility] [address] [place], [place] [address] Industrial Organization Manager: Robert Ybarra MD TROPONIN HS 6HRon 12-04-2021 Delta Troponin 6 Hr 232 pg/mL [facility] 0-14 [facility] Comment on above: Result Comment: The term acute myocardial infarction should be used when there is acute myocardial injury with clinical evidence of acute myocardial ischemia and the rise or fall of serial Troponin HS values (delta troponin) greater than or equal to 15 pg/mL with at least one Troponin HS value above the 99th percentile reference range Performed By: #### C D:[id number], 0420038, 046412, 897582, 335947, 721273 #### [facility] [address] [place] [address] Industrial Organization Manager: Robert Ybarra MD Troponin HS 6 Hr 337 pg/mL Critically abnormal 3-54 [facility] Comment on above: Result Comment: Crit ical Result(s) called at: 04:06:04 on 12/04/2021 by: Byron downsed, RBR to: SF Performed By: #### C D:[id number], 8021001, 693940, 390473, 707968, 717059 #### [facility] [address] [place] [address] Industrial Organization Manager: Robert Ybarra MD TSHon 12-04-2021 TSH Qn 0.53 m[IU]/L Normal 0.36-3.74 [facility] Comment on above: Result Comment: High levels of serum biotin may interfere with this test. Performed By: #### C D:[id number], 8297664, 733468, 200416, 753467, 103015 #### [facility] [address] [place] [address] Industrial Organization Manager: Robert Ybarra MD U DOA WITH FENTANYLon 2021 Amphetamines, U Negative Normal [facility] Comment on above: Result Comment: Urin e for Drugs of Abuse tests (U Amphetamines, U Barbiturates, U PCP, U Benzodiazepines, U Cocaine, U THC, U Opiates & U Ecstasy)provide preliminary test results only. A more specific alternate method must be used in order to obtain a confirmed analytical result. Gas chromatography/mass spectrometry is the preferred confirmatory method. Clinical consideration and professional judgment should be applied to any drug of abuse test result, particularly when preliminary positive results are used. Results should not be used for non-medical purposes. Urine for Drugs of Abuse [place] Levels: Barbiturate 200 ng/ml PCP 25 ng/ml Cocaine 300 ng/ml Opiates 2000 ng/ml Amphetamines 1000 ng/ml Benzodiazepines 200 ng/ml THC 50 ng/ml EXTC 500 ng/ml Performed By: #### C D:[id number] ####[facility] [address] [place], [place] [id number]) [phone] Director: Robert Ybarra MD Barbituates, [facility] Comment on above: Performed By: #### C D:[id number] ####[facility] [address] [place], [place] [id number]) [phone] Director: Robert Ybarra MD Benzodiazepines, Negative [facility] Comment on above: Performed By: #### C D:[id number] ####[facility] [address] [place], [place] [id number]) [phone] Director: Robert Ybarra MD Cocaine, [facility] Comment on above: Performed By: #### C D:[id number] ####[address] [id number]) [phone] Director: Robert Ybarra MD Ecstasy, [facility] Comment on above: Performed By: #### C D:[id number] ####[address] [id number]) [phone] Director: Robert Ybarra MD Fentanyl, [facility] Comment on above: Result Comment: [place]in [place] for Fentanyl provides preliminary test results only. A more specific alternate method must be used in order to obtain a confirmed analytical result. Gas chromatography/mass spectrometry is the preferred confirmatory method. Clinical consideration and professional judgment should be applied to any drug of abuse test result, particularly when preliminary positive results are used. Results should not be used for non-medical purposes. Urine Fentanyl [place] Level: 1 ng/ml Performed By: #### C D:[id number] ####[id number] [place] [address] Medical Director: Robert Ybarra MD Opiates, [facility] Comment on above: Performed By: #### C D:[id number] ####[facility] [address] [place], [place] [address]) [phone] Director: Robert Ybarra MD PCP, U Negative Normal [facility] Comment on above: Performed By: #### C D:[id number] ####[facility] [address] [place], [place] [id number]) [phone] Director: Robert Ybarra MD THC, U Negative Normal [facility] Comment on above: Performed By: #### C D:[id number] ####[facility] [address] [place], [place] [address]) [phone] Director: Robert Ybarra MD [facility] 12-04-2021 Appearance, U Hazy Normal [facility] Comment on above: Performed By: #### C D:[id number], 5237099, 159610, 838187, 511649, 427459 #### [facility] [address] [place] [address] Industrial Organization Manager: Robert Ybarra MD Bacteria, U Occasional Normal [facility] Comment on above: Performed By: #### C D:[id number], 6942848, 045606, 849395, 935230, 453486 #### [facility] [address] [place] [address] Industrial Organization Manager: Robert Ybarra MD Bilirubin, U Negative Normal Negative [facility] Comment on above: Performed By: #### C D:[id number], 9502092, 169042, 258474, 969286, 796601 #### [facility] [address] [place] [address] Industrial Organization Manager: Robert Ybarra MD Blood, U Large Abnormal Negative [facility] Comment on above: Performed By: #### C D:[id number], 3052955, 296017, 092088, 795388, 304316 #### [facility] [address] [place] [address] Industrial Organization Manager: Robert Ybarra MD Color, U Yellow Normal [facility] Comment on above: Performed By: #### C D:[id number], 1601140, 669439, 249578, 138866, 833750 #### [facility] [address] [place] [address] Industrial Organization Manager: Robert Ybarra MD Glucose Qual, U 150 mg/dl Abnormal Negative [facility] Comment on above: Performed By: #### C D:[id number], 9817353, 244974, 427276, 289545, 118163 #### [facility] [address] [place] [address] Industrial Organization Manager: Robert Ybarra MD Ketones, U Trace Abnormal Negative [facility] Comment on above: Performed By: #### C D:[id number], 4259046, 984711, 196138, 639893, 588886 #### [facility] [address] [place] [address] Industrial Organization Manager: Robert Ybarra MD Leukocyte Esterase, U Negative Normal Negative [facility] Comment on above: Performed By: #### C D:[id number], 5965102, 399910, 651894, 457767, 117779 #### [facility] [address] [place] [address] Industrial Organization Manager: Robert Ybarra MD Mucous, U Occasional Normal [facility] Comment on above: Performed By: #### C D:[id number], 2935804, 039030, 616075, 827347, 981984 #### [facility] [address] [place] [address] Industrial Organization Manager: Robert Ybarra MD Nitrite, U Negative Normal Negative [facility] Comment on above: Performed By: #### C D:[id number], 2435965, 915975, 656500, 111363, 698785 #### [facility] [address] [place] [address] Industrial Organization Manager: Robert Ybarra MD pH, U 5.0 Normal 4.5-8.0 [facility] Comment on above: Performed By: #### C D:[id number], 9601435, 761147, 828142, 848425, 891534 #### [facility] [address] [place] [address] Industrial Organization Manager: Robert Ybarra MD Protein, U Negative Normal Negative [facility] Comment on above: Performed By: #### C D:[id number], 8490121, 873533, 397934, 954541, 596325 #### [facility] [address] [place] [address] Industrial Organization Manager: Robert Ybarra MD RBC/HPF, U 2 #/HPF Normal 0-3 [facility] Comment on above: Performed By: #### C D:[id number], 7371535, 497671, 171882, 320841, 577197 #### [facility] [address] [place] [address] Industrial Organization Manager: Robert Ybarra MD Specific [place], U 1.009 Normal 1.001-1.035 [facility] Comment on above: Performed By: #### C D:[id number], 1815227, 931579, 776761, 596118, 966089 #### [facility] [address] [place] [address] Industrial Organization Manager: Robert Ybarra MD Squamous Epithelial Cells, U 1 #/HPF Normal [facility] Comment on above: Performed By: #### C D:[id number], 1366990, 754338, 933490, 533204, 019008 #### [facility] [address] [place] [address] Industrial Organization Manager: Robert Ybarra MD U MICRO Indicated Normal [facility] Comment on above: Performed By: #### C D:[id number], 9936374, 684289, 224889, 811372, 634268 #### [facility] [address] [place] [id number] Industrial Organization Manager: Robert Ybarra MD Urobilinogen Qual, U <2.0 mg/dl Normal <2.0 mg/dl [facility] Comment on above: Result Comment: EU/d l and mg/dl are equivalent units. Performed By: #### C D:[id number], 5463529, 793914, 773930, 483913, 408573 #### [facility] [address] [place] [phone] Industrial Organization Manager: Robert Ybarra MD WBC/HPF, U 2 #/HPF Normal 0-5 [facility] Comment on above: Performed By: #### C D:[id number], 7062006, 610660, 412174, 844594, 418485 #### [facility] [address] [place] [id number] Industrial Organization Manager: Robert Ybarra MD VIT D 25 LEVELon 12-04-2021 Vit D 25 16 ng/mL Normal [facility] Comment on above: Result Comment: Less than 20 ng/ml Deficient 20-30 ng/ml Insufficient 30-100 ng/ml Sufficient Greater than 100 ng/ml Potential toxicity Patients who have recently undergone fluorescein dye angiography in the past 48 to 72 hours (or longer if renal insufficient) may have falsely elevated results. Performed By: #### 9 [id number] ####[facility] [address] [place], [place] [address] Medical Director: Robert Ybarra MD XR ELBOW RIGHT COMPLETEon XR ELBOW RIGHT COMPLETE XR ELBOW RIGHT COMPLETE CLINICAL STATEMENT: TRAUMA. TECHNOLOGIST NOTES: WHAT SYMPTOMS ARE YOU EXPERIENCING? - PT FELL, RT ELBOW BRUISING AND PAIN, 2 VIEWS ONLY DUE TO PT IMMOBILITY COMPARISON: None FINDINGS: A true lateral view was not obtained however no convincing evidence for acute fracture or dislocation. Osteopenia. No definitive joint effusion. IMPRESSION: No acute fracture or dislocation. Electronically signed by: Silvia Hill DO 12/03/2021 10:59 PM STUDENT SERVICES VICE PRESIDENT Technologist: JUAN PABLO PHILIPPE Dictated By: SILVIA HILL DO Signed By: SILVIA HILL DO Signed Out: 12/03/21 23:59:23 Normal [facility] ALCOHOL SERUMon 12-03-2021 Alcohol, Serum <3 Normal [facility] Comment on above: Result Comment: Note : Alcohol values performed at [facility] are performed on Serum and reported in mg/dl, which is different then the state reporting units of g/dl which is performed on whole blood. Result reporting units are based on test methodology and are not interchangable. Performed By: #### C D:[id number], 4498784, 542971, 748700, 053069, 379551 #### [facility] [address] [place], [place] [address] Industrial Organization Manager: Robert Ybarra MD APTTon 12-03-2021 aPTT Coag (Bld) [Time] 30.4 s Normal 26.0-39.0 So [facility] Comment on above: Performed By: #### C D:[id number], 8685762, 743324, 553013, 399881, 583440 #### [facility] [address] [place], [place] [address] Industrial Organization Manager: Robert Ybarra MD AUTO DIFFon 12-03-2021 Baso Count 0.09 x1000 Normal 0.00-0.20 [facility] Comment on above: Performed By: #### C D:[id number], 4918422, 224216, 051500, 763628, 774900 #### [facility] [address] [place], [place] [address] Industrial Organization Manager: Robert Ybarra MD Basos % 0.4 % Normal [facility] Comment on above: Performed By: #### C D:[id number], 7119852, 607700, 805175, 532892, 374374 #### [facility] [address] [place] [address] Industrial Organization Manager: Robert Ybarra MD Eos Count 0.21 x1000 Normal 0.00-0.50 [facility] Comment on above: Performed By: #### C D:[id number], 3060546, 323185, 015707, 630161, 859956 #### [facility] [address] [place] [address] Industrial Organization Manager: Robert Ybarra MD Eosinophils/100 WBC (Bld) 0.9 % Normal [facility] Comment on above: Performed By: #### C D:[id number], 6095241, 524236, 250358, 604068, 099460 #### [facility] [address] [place] [address] Industrial Organization Manager: Robert Ybarra MD Lymph Count 5.46 x1000 High 1.20-4.80 [facility] Comment on above: Performed By: #### C D:[id number], 7466322, 248137, 289723, 265316, 119049 #### [facility] [address] [place] [address] Industrial Organization Manager: Robert Ybarra MD Lymphocytes/100 WBC (Bld) 24.2 % Normal [facility] Comment on above: Performed By: #### C D:[id number], [id number], 884287, 034985, 202535, 267703 #### [facility] [address] [place] [address] 88438 Industrial Organization Manager: Robert Ybarra MD White Count 0.84 x1000 Normal 0.10-1.00 [facility] Comment on above: Performed By: #### C D:[id number], 7110786, 347434, 383874, 866152, 669609 #### [facility] [address] [place] [address] 59838 Industrial Organization Manager: Robert Ybarra MD Monocytes/100 WBC (Bld) 3.7 % Normal [facility] Comment on above: Performed By: #### C D:[id number], 0210428, 017175, 491714, 116790, 987523 #### [facility] [address] [place] [address] 37698 Industrial Organization Manager: Robert Ybarra MD Neutrophil Count (ANC) 15.99 x1000 High 1.40-8.80 [facility] Comment on above: Performed By: #### C D:[id number], 0786885, 497658, 509709, 662839, 001938 #### [facility] [address] [place] [address] 49269 Industrial Organization Manager: Robert Ybarra MD Neutrophils/100 WBC (Bld) 70.8 % Normal [facility] Comment on above: Performed By: #### C D:[id number], 1670014, 748030, 257064, 817323, 615439 #### [facility] [address] [place] [address] 86967 Industrial Organization Manager: Robert Ybarra MD Scan Differential Diff Scd Normal [facility] Comment on above: Result Comment: Slid e reviewed by technologist. Performed By: #### C D:[id number], 5750793, 490246, 213177, 003321, 686579 #### [facility] [address] [place] [address] 23332 Industrial Organization Manager: Robert Ybarra MD BLD GASon 12-03-2021 MAGGIE TEST Normal [facility] Comment on above: Performed By: #### C D:[id number], 8169509, 980912, 189782, 919709, 365198 #### [facility] [address] [place] [address] 09116 Industrial Organization Manager: Robert Ybarra MD Base Excess -11.8 mmol/L [facility] Comment on above: Performed By: #### C D:[id number], 6089090, 693547, 041867, 502729, 541885 #### [facility] [address] [place] [address] 56292 Industrial Organization Manager: Robert Ybarra MD [facility] [address] Comment on above: Performed By: #### C D:[id number], 3160889, 635184, 194949, 680300, 112442 #### [facility] [address] [place] [address] 44484 Industrial Organization Manager: Robert Ybarra MD FIO2 100 % [facility] Comment on above: Performed By: #### C D:[id number], 3744635, 217240, 710156, 423920, 028969 #### [facility] [address] [place] [address] 78512 Industrial Organization Manager: Robert Ybarra MD HCO3 (Bld) [Moles/Vol] 15.5 mmol/L Low 22.0-26.0 S [facility] Comment on above: Performed By: #### C D:[id number], 8384650, 102744, 246930, 632757, 422693 #### [facility] [address] [place] [address] 08200 Industrial Organization Manager: Robert Ybarra MD [facility] 0 [facility] [address] [facility] Comment on above: Performed By: #### C D:[id number], 3010961, 121765, 824155, 346231, 679655 #### [facility] [address] [place] [address] 77466 Industrial Organization Manager: Robert Ybarra MD O2 L/M 15.0 [facility] Comment on above: Performed By: #### C D:[id number], 1338571, 788910, 342073, 280325, 638565 #### [facility] [address] [place] [address] 47584 Industrial Organization Manager: Robert Ybarra MD Oxygen (Bld) [Partial pressure] 64.6 mm[Hg] Low 80.0-100.0 [facility] Comment on above: Performed By: #### C D:[id number], 5425048, 366929, 040594, 290554, 221210 #### [facility] [address] [place] [address] 66864 Industrial Organization Manager: Robert Ybarra MD Oxygen saturation in Blood 86.6 % Normal [facility] Comment on above: Performed By: #### C D:[id number], 0381194, 879279, 680602, 530165, 403420 #### [facility] [address] [place] [address] 33589 Industrial Organization Manager: Robert Ybarra MD PCO2 41.0 mmHg Normal 35.0-45.0 [facility] Comment on above: Performed By: #### C D:[id number], 8496595, 193233, 402048, 850552, 044880 #### [facility] [address] [place] [address] 51978 Industrial Organization Manager: Robert Ybarra MD PEEP 0.0 cmH20 Normal [facility] Comment on above: Performed By: #### C D:[id number], 6384819, 023185, 790216, 581623, 069707 #### [facility] [address] [place] [address] 82815 Industrial Organization Manager: Robert Ybarra MD pH (Bld) 7.196 [pH] Critically abnormal 7.350-7.450 [facility] Comment on above: Result Comment: RESU LTS CALLED WITH READBACK TO DR. SABRINA MOHAN 12/03/2021 21:02:41 EST. Performed By: #### C D:[id number], 2160409, 889670, 436117, 642083, 689804 #### [facility] [address] [place] [address] 10163 Industrial Organization Manager: Robert Ybarra MD PO2/FiO2 Ratio 65 Low 300-500 [facility] Comment on above: Performed By: #### C D:[id number], 2425440, 967158, 966869, 736789, 439365 #### [facility] [address] [place] [address] Industrial Organization Manager: Robert Ybarra MD Pressure Support. 0 cmH20 [facility] Comment on above: Performed By: #### C D:[id number], 9445008, 037150, 782906, 155909, 343902 #### [facility] [address] [place] [address] 53304 Industrial Organization Manager: Robert Ybarra MD RATE 0 bpm [facility] Comment on above: Performed By: #### C D:[id number], 4199445, 334575, 238719, 121578, 315834 #### [facility] [address] [place] [address] 95326 Industrial Organization Manager: Robert Ybarra MD TEMP 37.0 degC Normal <=37.0 [facility] Comment on above: Performed By: #### C D:[id number], 3330800, 844066, 159539, 427845, 565007 #### [facility] [address] [place] [address] 31332 Industrial Organization Manager: Robert Ybarra MD Type of Specimen Venous Normal [facility] Comment on above: Result Comment: RR A RT = Right Artery RB ART = Right Brachial Artery LR ART = Left Radial Artery LB ART = Left Brachial Artery RF ART = Right Femoral Artery LF ART = Left Femoral Artery Performed By: #### C D:[id number], 0891725, 284617, 283561, 923439, 273517 #### [facility] [address] [place] [address] Industrial Organization Manager: Robert Ybarra MD Ventilation Mask [facility] Comment on above: Performed By: #### C D:[id number], 2556768, 473143, 365198, 749588, 166547 #### [facility] [address] [place] [address] Industrial Organization Manager: Robert Ybarra MD VT 00 mL [facility] Comment on above: Performed By: #### C D:[id number], 2847845, 527635, 082921, 387677, 250804 #### [facility] [address] [place] [address] Industrial Organization Manager: Robert Ybarra MD COMPMETAon 12-03-2021 Albumin/Globulin [Mass ratio] 1.3 {ratio} [facility] Comment on above: Performed By: #### C D:[id number], 4213536, 367743, 477556, 411464, 137509 #### [facility] [address] [place] [address] Industrial Organization Manager: Robert Ybarra MD GFR AA 36 [facility] Comment on above: Result Comment: Afri can Greek GFR Calc Medical judgement is necessary to interpret GFR. The calculated GFR may not accurately reflect renal status in patients >70 years, women, acutely ill hospitalized patients and patients with acute renal failure or known renal disease. The MDRD GFR formula is valid only for adults greater than 18 years of age. Note: Creatinine clearance (not GFR) should be used for drug dosing. Performed By: #### C D:[id number], 8986417, 155902, 826803, 843030, 408154 #### [facility] [address] [place] [address] Industrial Organization Manager: Robert Ybarra MD Glomerular Filtration Rate 30 mL/min/1.73m? [facility] Comment on above: Result Comment: Non GFR Calc Medical judgement is necessary to interpret GFR. The calculated GFR may not accurately reflect renal status in patients >70 years, women, acutely ill hospitalized patients and patients with acute renal failure or known renal disease. The MDRD GFR formula is valid only for adults greater than 18 years of age. Note: Creatinine clearance (not GFR) should be used for drug dosing. Performed By: #### C D:[id number], 0784891, 231777, 323532, 623843, 629460 #### [facility] [address] [place] [address] 78375 Industrial Organization Manager: Robert Ybarra MD Osmolality [Osmolality] 297 mosm/kg High 275-295 [facility] Comment on above: Performed By: #### C D:[id number], 4297799, 163179, 987277, 016579, 534470 #### [facility] [address] [place] [address] 56031 Industrial Organization Manager: Roebrt Ybarra MD Urea nitrogen/Creatinine [Mass ratio] 27.3 mg/mg Normal [facility] Comment on above: Performed By: #### C D:[id number], 0295690, 053834, 505910, 007600, 616219 #### [facility] [address] [place] [address] 54604 Industrial Organization Manager: Robert Ybarra MD Albumin [Mass/Vol] 3.2 g/dL Low 3.4-5.0 [facility] Comment on above: Performed By: #### C D:[id number], 7307560, 329487, 591055, 785909, 874749 #### [facility] [address] [place] [address] 12998 Industrial Organization Manager: Robert Ybarra MD Alk Phos 60 unit/L Normal 45-117 [facility] Comment on above: Performed By: #### C D:[id number], 3803551, 238712, 441779, 498164, 642228 #### [facility] [address] [place] [address] 51520 Industrial Organization Manager: Robert Ybarra MD Bilirubin [Mass/Vol] 0.26 mg/dL Normal 0.20-1.00 [facility] Comment on above: Result Comment: Use of this assay is not recommended for patients undergoing treatment with eltrombopag due to the potential for falsely elevated results. Performed By: #### C D:[id number], 5691820, 182899, 695626, 486113, 099177 #### [facility] [address] [place] [address] 07187 Industrial Organization Manager: Robert Ybarra MD Calcium [Mass/Vol] 8.9 mg/dL Normal 8.5-10.5 [facility] Comment on above: Performed By: #### C D:[id number], 9638024, 794680, 295476, 763498, 232306 #### [facility] [address] [place] [address] 77683 Industrial Organization Manager: Robert Ybarra MD Chloride [Moles/Vol] 105 mmol/L Normal 100-109 [facility] Comment on above: Performed By: #### C D:[id number], 8897303, 300989, 157631, 095203, 247689 #### [facility] [address] [place] [address] 96598 Industrial Organization Manager: Robert Ybarra MD CO2 [Moles/Vol] 18.9 mmol/L Low 21.0-32.0 [facility] Comment on above: Performed By: #### C D:[id number], 1881501, 705930, 171634, 003961, 916228 #### [facility] [address] [place] [address] 38689 Industrial Organization Manager: Robert Ybarra MD Creatinine [Mass/Vol] 1.6 mg/dL High 0.6-1.0 [facility] Comment on above: Performed By: #### C D:[id number], 7293448, 223644, 165573, 161477, 361525 #### [facility] [address] [place] [address] 87368 Industrial Organization Manager: Robert Ybarra MD Globulin (S) [Mass/Vol] 2.4 g/dL Normal S [facility] Comment on above: Performed By: #### C D:[id number], 4979240, 703890, 403373, 677429, 732534 #### [facility] [address] [place] [address] 30011 Industrial Organization Manager: Robert Ybarra MD Glucose [Mass/Vol] 270 mg/dL High 72-100 [facility] Comment on above: Result Comment: Shireen puncture should occur prior to sulfasalazine administration due to the potential for falsely depressed results. Venipuncture should occur prior to sulfapyridine administration due to the potential falsely elevated results. Baseline assay values before administration of sulfasalazine and sulfapyridine therapy would not be affected. Performed By: #### C D:[id number], 6615899, 980127, 834698, 820296, 672894 #### [facility] [address] [place] [address] 11319 Industrial Organization Manager: Robert Ybarra MD GOT 61 unit/L High 15-37 [facility] Comment on above: Result Comment: Resu lts may be increased due to hemolysis. Venipuncture should occur prior to sulfasalazine and/or sulfapyridine administration due to the potential for falsely depressed results. Baseline assay values before administration of sulfasalazine and sulfapyridine therapy would not be affected. Performed By: #### C D:[id number], 7905421, 398078, 440000, 412833, 031038 #### [facility] [address] [place] [address] 74054 Industrial Organization Manager: Robert Ybarra MD GPT 49 unit/L Normal 13-56 [facility] Comment on above: Result Comment: Shireen puncture should occur prior to sulfasalazine and/or sulfapyridine administration due to the potential for falsely depressed results. Baseline assay values before administration of sulfasalazine and sulfapyridine therapy would not be affected. Performed By: #### C D:[id number], 0463098, 903690, 978479, 269550, 469562 #### [facility] [address] [place] [address] Industrial Organization Manager: Robert Ybarra MD Potassium [Moles/Vol] 5.5 mmol/L High 3.5-5.1 [facility] Comment on above: Result Comment: Resu lts may be increased due to hemolysis. Performed By: #### C D:[id number], 3619773, 700016, 053596, 848420, 504446 #### [facility] [address] [place] [address] 29411 Industrial Organization Manager: Robert Ybarra MD Protein [Mass/Vol] 5.6 g/dL Low 6.0-8.5 [facility] Comment on above: Performed By: #### C D:[id number], 9953846, 369614, 894362, 174580, 658628 #### [facility] [address] [place] [address] 99814 Industrial Organization Manager: Robert Ybarra MD Sodium [Moles/Vol] 138 mmol/L Normal 135-145 [facility] Comment on above: Performed By: #### C D:[id number], 9487651, 976420, 452658, 410448, 487152 #### [facility] [address] [place] [address] 24717 Industrial Organization Manager: Robert Ybarra MD Urea nitrogen [Mass/Vol] 45 mg/dL High 10-20 [facility] Comment on above: Performed By: #### C D:[id number], 5910983, 807581, 912576, 271996, 142290 #### [facility] [address] [place] [address] 50388 Industrial Organization Manager: Robert Ybarra MD CT ABD PELVIS WO IV CONTRAST on 12-03-2021 CT ABD PELVIS WO IV CONTRAST CT ABD PELVIS WO IV CONTRAST RadLex: CT ABDOMEN PELVIS WITHOUT IV CONTRAST CLINICAL HISTORY: 85 years Female; PAIN TECHNOLOGIST NOTES: WHAT SYMPTOMS ARE YOU EXPERIENCING? - FALL. TRAUMA. UNRESPONSIVE. TECHNIQUE: Helical CT imaging performed. Axial, sagittal and coronal reformatted images are available for review. This exam was performed according to our departmental dose-optimization program, which includes automated exposure control, adjustment of the mA and/or kV according to patient size and/or use of iterative reconstruction technique. COMPARISON: None currently available FINDINGS: Abdomen: The liver, spleen, pancreas, adrenal glands and kidneys are grossly unremarkable. No evidence of acute solid organ injury or laceration. There is no significant perihepatic or perisplenic fluid. No retroperitoneal or perinephric hematoma. No significant free fluid. No free air. Gallbladder is distended. There is an incidental cyst from the lower pole of the right kidney. Examination is limited without contrast. Pelvis: No bowel obstruction. No herniated bowel loops. No focal inflammatory changes. There is no significant free fluid in the pelvis. The bladder is empty through a Fuentes catheter.. There is a moderate volume of stool in the colon. Left hip arthroplasty incidentally noted. There are old fracture deformities of the right superior and inferior pelvic rami. Severe degenerative arthropathy of the right hip incidentally noted. There is a lumbar scoliosis. There is multilevel degenerative disc disease and vacuum disc phenomenon. There is also bilateral facet arthropathy. IMPRESSION: No evidence of acute traumatic injury in the abdomen or pelvis. Limited without contrast. Electronically signed by: David Barraza MD 12/03/2021 7:49 PM STUDENT SERVICES VICE PRESIDENT Normal [facility] Comment on above: Order Comment: NO OR AL CONTRAST Result Comment: Tech nologist: VIRGIE,KATJA,ND Dictated By: DAVID BARRAZA MD Signed By: DAVID BARRAZA MD Signed Out: 12/03/21 20:49:09 CT BRAIN HEAD WO CONTRASTon 12-03-2021 CT BRAIN HEAD WO CONTRAST EXAM DESCRIPTION: CT BRAIN HEAD WO CONTRAST RadLex: CT HEAD WITHOUT IV CONTRAST CLINICAL HISTORY: 85 years Female; PAIN TECHNOLOGIST NOTES: WHAT SYMPTOMS ARE YOU EXPERIENCING? - FALL. TRAUMA. UNRESPONSIVE. COMPARISONS: None currently available TECHNIQUE: Axial CT images were obtained from the skull base to vertex. This exam was performed according to our departmental dose-optimization program, which includes automated exposure control, adjustment of the mA and/or kV according to patient size and/or use of iterative reconstruction techniques. FINDINGS: No acute intracranial hemorrhage. No mass effect, midline shift or hydrocephalus. The winchester-white matter differentiation is grossly unremarkable. No evidence of acute large territory infarct. Within the broad range of normal, brain volume is age appropriate. Nonspecific low attenuation in the white matter bilaterally. This is most commonly related to age-indeterminate small vessel ischemic disease. The visualized paranasal sinuses are grossly unremarkable. The mastoid air cells are clear. IMPRESSION: 1. No acute intracranial process is identified. 2. Nonspecific low attenuation in the white matter bilaterally. This is most commonly related to age-indeterminate small vessel ischemic disease, 3. If symptoms persist or further imaging is clinically indicated, consider follow-up MRI or repeat CT imaging Electronically signed by: David Barraza MD 12/03/2021 7:37 PM STUDENT SERVICES VICE PRESIDENT Technologist: KATJA GARVIN ND Dictated By: DAVID BARRAZA MD Signed By: DAVID BARRAZA MD Signed Out: 12/03/21 20:37:46 Normal [facility] CT CERVICAL SPINE WO CONTRAS Ton 12-03-2021 CT CERVICAL SPINE WO CONTRAST EXAM DESCRIPTION: CT CERVICAL SPINE WO CONTRAST RadLex: CT CERVICAL SPINE WITHOUT IV CONTRAST CLINICAL HISTORY: 85 years Female; PAIN TECHNOLOGIST NOTES: WHAT SYMPTOMS ARE YOU EXPERIENCING? - FALL. TRAUMA. UNRESPONSIVE. COMPARISON: None currently available TECHNIQUE: Helical imaging was performed without intravenous contrast, followed with sagittal and coronal reconstructions. This exam was performed according to our departmental dose-optimization program, which includes automated exposure control, adjustment of the mA and/or kV according to patient size and/or use of iterative reconstruction technique. FINDINGS: There is no acute fracture or compression deformity. There is grade 1 anterolisthesis of C3 on C4 and C4 on C5. No traumatic malalignment. The paravertebral soft tissues are grossly unremarkable. No evidence of significant canal stenosis. IMPRESSION: No acute fracture, compression deformity or traumatic malalignment. If symptoms persist or further imaging is clinically indicated, consider follow-up MRI Electronically signed by: David Barraza MD 12/03/2021 7:40 PM STUDENT SERVICES VICE PRESIDENT Technologist: KATAJ GARVIN ND Dictated By: DAVID BARRAZA MD Signed By: DAVID BARRAZA MD Signed Out: 12/03/21 20:40:23 Normal [facility] CT CHEST WO CONTRSTon 2021 CT CHEST WO CONTRST EXAM DESCRIPTION: CT CHEST WO CONTRST CLINICAL HISTORY: PAIN TECHNIQUE: Helical CT imaging was performed. Axial, sagittal and coronal reformatted images are available. This exam was performed according to our departmental dose-optimization program, which includes automated exposure control, adjustment of the mA and/or kV according to patient size and/or use of iterative reconstruction technique. COMPARISON: None. FINDINGS: No consolidation. No pleural or pericardial effusion. No pneumothorax. There is an 8 mm nodule in the left upper lobe with a central calcification. This is a benign pattern of calcification, most likely related to granulomatous disease. There are several calcified mediastinal and hilar nodes also. Central airway is patent. There is calcification in the coronary arteries. No acute finding in the visualized upper abdomen. Evaluation is limited without contrast. IMPRESSION: No acute finding Electronically signed by: aDvid Barraza MD 12/03/2021 7:46 PM STUDENT SERVICES VICE PRESIDENT Technologist: KATJA GARVIN ND Dictated By: DAVID BARRAZA MD Signed By: DAVID BARRAZA MD Signed Out: 12/03/21 20:46:42 Normal [facility] ED Pre-Arrival Formon 2021 ED Pre-Arrival Form Pre-Arrival Summary Name: ADRYAN-TRAUMA, Current Date: 12/03/2021 19:55:10 EST Gender: Date of : Age: Pre-Arrival Type: EMS ETA: 12/03/2021 20:08:00 EST Primary Care Physician: Presenting Problem: Pre-Arrival User: Laura Smith RN Referring Source: Location: [address] [place] [address] Emergency Department [address] [place] [address] Notes: Vital Signs: Doctor Call Back: DNR Status: Miscellaneous Issues: Normal [facility] HEMOon 12-03-2021 DIFF? No Normal [facility] Comment on above: Performed By: #### C D:[id number], 0430995, 625512, 337559, 250773, 754616 #### [facility] [address] [place] [address] 51457 Industrial Organization Manager: Robert Ybarra MD Nucleated RBC 0 /100WBC Normal [facility] Comment on above: Performed By: #### C D:[id number], 3584044, 650876, 632446, 307780, 996275 #### [facility] [address] [place] [address] 95862 Industrial Organization Manager: Robert Ybarra MD [facility] Actions See Notes Abnormal [facility] Comment on above: Result Comment: Scan Slide. Perform manual diff if needed. Scan Slide. Path Review if Required. SNV Performed By: #### C D:[id number], 4791151, 072886, 695685, 257787, 088563 #### [facility] [address] [place], [place] [address] Industrial Organization Manager: Robert Ybarra MD Erythrocyte distribution width (RBC) [Ratio] 14.6 % High 11.5-14.5 [facility] Comment on above: Performed By: #### C D:[id number], [id number], 605327, 070317, 016922, 356496 #### [facility] [address] [place], [place] [address] Industrial Organization Manager: Robert Ybarra MD Hematocrit (Bld) [Volume fraction] 31.2 % Low 36.0-46.0 [facility] Comment on above: Performed By: #### C D:[id number], [id number], 127798, 553396, 897548, 564602 #### [facility] [address] [place] [address] Industrial Organization Manager: Robert Ybarra MD Hemoglobin (Bld) [Mass/Vol] 10.1 g/dL Low 12.0-16.0 [facility] Comment on above: Performed By: #### C D:[id number], [id number], 176072, 415739, 965820, 951833 #### [facility] [address] [place] [address] Industrial Organization Manager: Robert Ybarra MD Instr WBC 22.6 Normal [facility] Comment on above: Performed By: #### C D:[id number], [id number], 972307, 317719, 166051, 739266 #### [facility] [address] [place] [address] Industrial Organization Manager: Robert Ybarra MD MCH (RBC) [Entitic mass] 29.6 pg Normal 27.0-34.0 [facility] Comment on above: Performed By: #### C D:[id number], [id number], 871408, 138837, 535099, 583346 #### [facility] [address] [place], [place] [address] Industrial Organization Manager: Robert Ybarra MD MCHC (RBC) [Mass/Vol] 32.6 g/dL Normal 32.0-37.0 [facility] Comment on above: Performed By: #### C D:[id number], [id number], 797666, 853558, 497573, 426099 #### [facility] [address] [place] [address] Industrial Organization Manager: Robert Ybarra MD MCV (RBC) [Entitic vol] 90.9 fL Normal 80.0-100.0 S [facility] Comment on above: Performed By: #### C D:[id number], [id number], 585750, 130670, 233933, 383622 #### [facility] [address] [place] [address] Industrial Organization Manager: Robert Ybarra MD MDW 16.08 Normal 13.98-20.00 [facility] Comment on above: Result Comment: MDW Interpretation: ? For adults age 18-89 in ED, MDW >20.0 may be associated with a higher risk of Sepsis during the first 12 hours of hospital admission. ? The predictive value of MDW for identifying Sepsis in patients with hematological abnormalities has not been established. ? Interpret with caution when immature granulocytes, variant lymphs, or blast cells are noted on the differential. ? Confirm patient age is within intended use population (18-89 years) for MDW. ? For ED adults suspected of Sepsis, MDW less than or equal to 20.0 does not rule out Sepsis or the risk of Sepsis. Performed By: #### C D:[id number], 9750002, 125706, 133877, 851281, 871360 #### [facility] [address] [place] [address] Industrial Organization Manager: Robert Ybarra MD Platelet 347 x1000 Normal 150-450 [facility] Comment on above: Performed By: #### C D:[id number], [id number], 980379, 932969, 705699, 500312 #### [facility] [address] [place] [address] Industrial Organization Manager: Robert Ybarra MD Platelet mean volume (Bld) [Entitic vol] 6.7 fL Low 7.4-10.4 [facility] Comment on above: Performed By: #### C D:[id number], 9361785, 375991, 254717, 042123, 873500 #### [facility] [address] [place] [address] Industrial Organization Manager: Robert Ybarra MD RBC 3.43 x10 Low 4.20-5.40 [facility] Comment on above: Result Comment: Note : RBC morphology is normal unless otherwise stated. Evaluation performed only if differential is requested. Performed By: #### C D:[id number], 0132835, 956026, 732401, 581442, 450050 #### [facility] [address] [place] [address] Industrial Organization Manager: Robert Ybarra MD WBC 22.6 x10 High 4.5-11.0 [facility] Comment on above: Performed By: #### C D:[id number], 1372951, 549925, 547768, 393127, 680223 #### [facility] [address] [place] [address] Industrial Organization Manager: Robert Ybarra MD I8on 12-03-2021 Anion gap [Moles/Vol] 16 mmol/L Normal 10-20 [facility] Comment on above: Performed By: #### C D:[id number] ####[facility] [address] [place] [address] Medical Director: Robert Ybarra MD Chloride [Moles/Vol] 104 mmol/L Normal 98-109 [facility] Comment on above: Performed By: #### C D:[id number] ####[facility] [address] [place] [address] Medical Director: Robert Ybarra MD CO2 [Moles/Vol] 21 mmol/L Low 24-32 [facility] Comment on above: Performed By: #### C D:[id number] ####[facility] [address] [place] [address] Medical Director: Robert Ybarra MD Creatinine [Mass/Vol] 1.7 mg/dL High 0.6-1.3 [facility] Comment on above: Performed By: #### C D:[id number] ####[facility] [address] [place] [address] Medical Director: Robert Ybarra MD Glucose [Mass/Vol] 268 mg/dL High 72-110 [facility] Comment on above: Performed By: #### C D:[id number] ####[facility] [address] [place], [place] [address]) [phone] Director: Robert Ybarra MD Hct, I-Stat 30 %PCV Low 40-54 [facility] Comment on above: Performed By: #### C D:[id number] ####[facility] [address] [place], [place] [address]) [phone] Director: Robert Ybarra MD Hemoglobin (Bld) [Mass/Vol] 10.2 g/dL Low 14.0-18.0 [facility] Comment on above: Result Comment: The calculation of hemoglobin from hematocrit assumes a normal MCHC. Performed By: #### C D:[id number] ####[facility] [address] [place], [place] [address]) [phone] Director: Robert Ybarra MD Ionized Calcium, I-Stat 1.24 mmol/L Normal 1.12-1.32 [facility] Comment on above: Performed By: #### C D:[id number] ####[facility] [address] [place] [address] Medical Director: Robert Ybarra MD Potassium [Moles/Vol] 5.2 mmol/L High 3.7-5.1 [facility] Comment on above: Performed By: #### C D:[id number] ####[facility] [address] [place] [address] Medical Director: Robert Ybarra MD Sodium [Moles/Vol] 134 mmol/L Low 138-146 [facility] Comment on above: Performed By: #### C D:[id number] ####[facility] [address] [place] [address] Medical Director: Robert Ybarra MD Urea nitrogen [Mass/Vol] 43 mg/dL High 8-26 [facility] Comment on above: Performed By: #### C D:[id number] ####[facility] [address] [place], [place] [id number]) [phone] Director: Robert Ybarra MD PT INRon 12-03-2021 INR Coag (PPP) [Relative time] 1.0 {INR} Normal [facility] Comment on above: Result Comment: INR Reference Range: Normal reference range for INR on patients not on anticoagulant therapy: 0.9-1.1 General therapeutic range for patients on anticoagulant therapy: 2.0-3.5 Performed By: #### C D:[id number], 4155055, 071100, 718419, 755406, 706512 #### [facility] [address] [place] [address] Industrial Organization Manager: Robert Ybarra MD Protime Patient 11.7 seconds Normal 9.8-13.4 [facility] Comment on above: Performed By: #### C D:[id number], 4441456, 396880, 157650, 571769, 594970 #### [facility] [address] [place] [address] Industrial Organization Manager: Robert Ybarra MD TROPONIN HS 0HRon 12-03-2021 Troponin HS 0 Hr 66 pg/mL High 3-54 [facility] Comment on above: Performed By: #### C D:[id number], 2933061, 376505, 014129, 385257, 508071 #### [facility] [address] [place] [address] Industrial Organization Manager: Robert Ybarra MD XR CHEST PORTABLEon 12-03-19 XR CHEST PORTABLE EXAM DESCRIPTION: XR CHEST PORTABLE RadLex: XR CHEST 1 VIEW CLINICAL HISTORY: 85 years Female; trauma;OTHER REASON TECHNOLOGIST NOTES: WHAT SYMPTOMS ARE YOU EXPERIENCING? - CHEST PAIN TECHNIQUE: Frontal portable view of the chest COMPARISON: None currently available. FINDINGS: The cardiomediastinal contour is unremarkable. There is no focal area of consolidation. There is no evidence of acute pulmonary edema. There is no significant pleural effusion. There is no pneumothorax. No evidence of pulmonary fibrosis or honeycombing.Visualize d osseous structures show no acute abnormality. Degenerative arthropathy in the shoulders bilaterally. IMPRESSION: No evidence of acute disease Electronically signed by: David Barraza MD 12/03/2021 7:26 PM STUDENT SERVICES VICE PRESIDENT Technologist: SR JOSE MARTIN,RL Dictated By: DAVID BARRAZA MD Signed By: DAVID BARRAZA MD Signed Out: 12/03/21 20:26:51 Normal [facility] XR PELVIS APon 12-03-2021 XR PELVIS AP EXAM DESCRIPTION: XR PELVIS AP RadLex: XR PELVIS 1-2 VIEWS CLINICAL HISTORY: 85 years Female; TRAUMA TECHNOLOGIST NOTES: WHAT SYMPTOMS ARE YOU EXPERIENCING? - PELVIS PAIN TECHNIQUE: 1 views COMPARISON: None currently available. FINDINGS: No acute fracture. No dislocation The regional soft tissues are grossly unremarkable. Joint spaces are grossly maintained. No worrisome focal lytic or blastic abnormalities. There is a left hip arthroplasty. There is a bladder catheter. There are degenerative changes in the visualized lower lumbar spine. Moderate degenerative arthropathy in the right hip. Old fracture of the right superior and inferior pelvic rami. A very small portion of the right iliac crest was not included on this single image. IMPRESSION: No acute fracture or dislocation. If clinically indicated, consider follow-up CT or MR for more sensitive evaluation Electronically signed by: David Barraza MD 12/03/2021 7:26 PM STUDENT SERVICES VICE PRESIDENT Technologist: SR JOSE MARTIN,RL Dictated By: DAVID BARRAZA MD Signed By: DAVID BARRAZA MD Signed Out: 12/03/21 20:26:00 Normal [facility] pH Venouson 12-03-2021 pH Venous 7.196 Critically abnormal 7.310-7.410 [facility] Comment on above: Result Comment: RESU LTS CALLED WITH READBACK TO DR. SABRINA MOHAN 12/03/2021 21:04:42 EST. Performed By: #### C D:[id number] ####[facility] [address] [place] [address] Medical Director: Robert Ybarra MD XR Shoulder - left 3 Viewson 07-14-2021 IMPRESSION: 1. Advanced glenoid humeral osteoarthritis and chronic rotator cuff arthropathy with increased glenoid humeral joint space narrowing compared to the prior study. Supervisor Wound: PHU Transcribe Date/Time: Jul 14 2021 9:03A Dictated by : MIRNA VIZCAINO MD This examination was interpreted and the report reviewed and electronically signed by: MIRNA VIZCAINO MD on Jul 14 2021 9:05AM EST DIVISION OF RADIOLOGY * * *Final Report* * * DATE OF EXAM: Jul 14 2021 9:00AM STX 5252 - XR SHLDR >/=3V AP/BARBIE AP/OTHR LT / PROCEDURE REASON: Pain * * * * Physician Interpretation * * * * Left shoulder radiographs HISTORY: Pain TECHNIQUE: 4 views of the left shoulder COMPARISON: 07/20/2019 Results There is marked narrowing of the glenohumeral joint space with subchondral sclerosis and degenerative marginal osteophytes. There is glenoid remodeling. The humeral head is elevated and abuts the inferior surface of the acromion. No acute fracture. Periarticular soft tissues are unremarkable. Calcified nodule is noted left upper lung. DIVISION OF RADIOLOGY Provider, [facility] - 07/14/2021 * * *Final Report* * * DATE OF EXAM: Jul 14 2021 9:00AM STX 5252 - XR SHLDR >/=3V AP/BARBIE AP/OTHR LT / PROCEDURE REASON: Pain * * * * Physician Interpretation * * * * Left shoulder radiographs HISTORY: Pain TECHNIQUE: 4 views of the left shoulder COMPARISON: 07/20/2019 Results There is marked narrowing of the glenohumeral joint space with subchondral sclerosis and degenerative marginal osteophytes. There is glenoid remodeling. The humeral head is elevated and abuts the inferior surface of the acromion. No acute fracture. Periarticular soft tissues are unremarkable. Calcified nodule is noted left upper lung. IMPRESSION IMPRESSION: 1. Advanced glenoid humeral osteoarthritis and chronic rotator cuff arthropathy with increased glenoid humeral joint space narrowing compared to the prior study. Supervisor Wound: PSCB Transcribe Date/Time: Jul 14 2021 9:03A Dictated by : MIRNA VIZCAINO MD This examination was interpreted and the report reviewed and electronically signed by: MIRNA VIZCAINO MD on Jul 14 2021 9:05AM [facility] Radiology Study observation (narrative) Mira Miranda XR Shoulder - left 3 ViewsOr dered By: [facility] Provider on 07-14-2021 [facility] Vital Signs Date Time Vital Sign Value Performing Clinician Facility 02-13-2025 13:33-0400 Body temperature 97.7 [degF] Lien Bang DPM Work Phone: [facility] 02-13-2025 13:33-0400 Diastolic blood pressure 68 mm[Hg] Lien Bang DPM Work Phone: [facility] 02-13-2025 13:33-0400 Heart rate 101 /min Lien Bang DPM Work Phone: [facility] 02-13-2025 13:33-0400 Respiratory rate 20 /min Lien Bang DPM Work Phone: [facility] 02-13-2025 13:33-0400 SaO2% (BldA) [Mass fraction] 98 % Lien Bang DPM Work Phone: [facility] 02-13-2025 13:33-0400 Systolic blood pressure 119 mm[Hg] Lien Bang DPM Work Phone: [facility] 01-16-2025 13:41-0500 Body temperature 97.59 [degF] Lien Bang DPM Work Phone: [facility] 01-16-2025 13:41-0500 Diastolic blood pressure 73 mm[Hg] Lien Bang DPM Work Phone: [facility] 01-16-2025 13:41-0500 Heart rate 76 /min Lien Bang DPM Work Phone: [facility] 01-16-2025 13:41-0500 SaO2% (BldA) [Mass fraction] 96 % Lien Bang DPM Work Phone: [facility] 01-16-2025 13:41-0500 Systolic blood pressure 132 mm[Hg] Lien Bang DPM Work Phone: [facility] 01-08-2025 13:32-0500 Body temperature 98.1 [degF] Pierce Chi MD Work Phone: [facility] 01-08-2025 13:32-0500 Diastolic blood pressure 74 mm[Hg] Pierce Chi MD Work Phone: [facility] 01-08-2025 13:32-0500 Heart rate 95 /min Pierce Chi MD Work Phone: [facility] 01-08-2025 13:32-0500 SaO2% (BldA) [Mass fraction] 97 % Pierce Chi MD Work Phone: [facility] 01-08-2025 13:32-0500 Systolic blood pressure 165 mm[Hg] Pierce Chi MD Work Phone: [facility] 01-04-2025 08:05-0500 Body height 152.4 cm Tyesha Singleton MD Work Phone: [facility] 01-04-2025 08:05-0500 Body mass index (BMI) [Ratio] 20.24 kg/m2 Tyesha Singleton MD Work Phone: [facility] 01-04-2025 08:05-0500 Body weight 47 kg Tyesha Singleton MD Work Phone: [facility] 01-04-2025 08:05-0500 Diastolic blood pressure 59 mm[Hg] Tyesha Singleton MD Work Phone: [facility] Comment on above: per facility paperwork BP is at baseline 01-04-2025 08:05-0500 Heart rate 84 /min Tyesha Singleton MD Work Phone: [facility] 01-04-2025 08:05-0500 Respiratory rate 16 /min Tyesha Singleton MD Work Phone: [facility] 01-04-2025 08:05-0500 Systolic blood pressure 165 mm[Hg] Tyesha Singleton MD Work Phone: [facility] Comment on above: per facility paperwork BP is at baseline 01-02-2025 08:44-0500 Diastolic blood pressure 72 mm[Hg] Grupo ochoa MD Work Phone: [facility] Comment on above: recheck 01-02-2025 08:44-0500 Systolic blood pressure 152 mm[Hg] Grupo Mendez MD Work Phone: [facility] Comment on above: recheck 01-02-2025 08:41-0500 Body mass index (BMI) [Ratio] 20.24 kg/m2 Grupo Mendez MD Work Phone: [facility] 01-02-2025 08:41-0500 Body temperature 97.9 [degF] Grupo Mendez MD Work Phone: [facility] 01-02-2025 08:41-0500 Body weight 47 kg Grupo Mendez MD Work Phone: [facility] 01-02-2025 08:41-0500 Heart rate 85 /min Grupo Mendez MD Work Phone: [facility] 01-02-2025 08:41-0500 Respiratory rate 18 /min Grupo Mendez MD Work Phone: [facility] 01-02-2025 08:41-0500 SaO2% (BldA) [Mass fraction] 96 % Grupo Mendez MD Work Phone: [facility] 12-26-2024 13:07-0500 Body temperature 97.3 [degF] Lien Bang DPM Work Phone: [facility] 12-26-2024 13:07-0500 Diastolic blood pressure 79 mm[Hg] Lien Bang DPM Work Phone: [facility] 12-26-2024 13:07-0500 Heart rate 96 /min Lien Bang DPM Work Phone: [facility] 12-26-2024 13:07-0500 SaO2% (BldA) [Mass fraction] 95 % Lien Bang DPM Work Phone: [facility] 12-26-2024 13:07-0500 Systolic blood pressure 164 mm[Hg] Lien Bang DPM Work Phone: [facility] 12-02-2024 12:26-0500 SaO2% (BldA) [Mass fraction] 92 % UNKNOWN PROVIDER [facility] Comment on above: Order Comment: Specimen Type: ARTERIAL B LOOD SPECIMENOrdering Facility: [facility] Address: [address] [place] [address] Performed By: #### A SUDHA ####[id number] [id number] [place] [phone] 10-29-2024 16:27-0500 Diastolic blood pressure 72 mm[Hg] Ab Benson MD Work Phone: [facility] Comment on above: trupbp 10-29-2024 16:27-0500 Heart rate 66 /min Ab Benson MD Work Phone: [facility] 10-29-2024 16:27-0500 Systolic blood pressure 159 mm[Hg] Ab Benson MD Work Phone: [facility] Comment on above: trupbp 10-29-2024 16:24-0500 Body mass index (BMI) [Ratio] 20.67 kg/m2 Ab Benson MD Work Phone: [facility] 10-29-2024 16:24-0500 Body temperature 99.3 [degF] Ab Benson MD Work Phone: [facility] 10-29-2024 16:24-0500 Body weight 48 kg Ab Benson MD Work Phone: [facility] 10-29-2024 16:24-0500 SaO2% (BldA) [Mass fraction] 97 % Ab Benson MD Work Phone: [facility] 09-17-2024 15:04-0500 Body mass index (BMI) [Ratio] 22.48 kg/m2 Grupo Mendez MD Work Phone: [facility] 09-17-2024 15:04-0500 Body weight 52.2 kg Grupo Mendez MD Work Phone: [facility] 09-17-2024 15:04-0500 Diastolic blood pressure 88 mm[Hg] Grupo ochoa MD Work Phone: [facility] 09-17-2024 15:04-0500 Heart rate 92 /min Grupo Mendez MD Work Phone: [facility] 09-17-2024 15:04-0500 Respiratory rate 16 /min Grupo Mendez MD Work Phone: [facility] 09-17-2024 15:04-0500 SaO2% (BldA) [Mass fraction] 99 % Grupo Mendez MD Work Phone: [facility] 09-17-2024 15:04-0500 Systolic blood pressure 166 mm[Hg] Grupo Mendez MD Work Phone: [facility] 09-13-2024 10:45-0400 Diastolic blood pressure 60 mm[Hg] Migdalia Archibald Work Phone: [facility] 09-13-2024 10:45-0400 Systolic blood pressure 150 mm[Hg] Migdalia Cramer MD Work Phone: [facility] 09-13-2024 10:20-0400 Body mass index (BMI) [Ratio] 22.09 kg/m2 Migdalia Cramer MD Work Phone: [facility] 09-13-2024 10:20-0400 Body weight 51.3 kg Migdalia Cramer MD Work Phone: [facility] 09-13-2024 10:20-0400 Heart rate 98 /min Migdalia Cramer MD Work Phone: [facility] 08-14-2024 10:36-0400 Body mass index (BMI) [Ratio] 22 kg/m2 Migdalia Cramer MD Work Phone: [facility] 08-14-2024 10:36-0400 Body temperature 97.59 [degF] Migdalia Cramer MD Work Phone: [facility] 08-14-2024 10:36-0400 Body weight 51.1 kg Migdalia Cramer MD Work Phone: [facility] 08-14-2024 10:36-0400 Diastolic blood pressure 68 mm[Hg] Migdalia Archibald Work Phone: [facility] 08-14-2024 10:36-0400 Heart rate 91 /min Migdalia Cramer MD Work Phone: [facility] 08-14-2024 10:36-0400 SaO2% (BldA) [Mass fraction] 96 % Migdalia Cramer MD Work Phone: [facility] 08-14-2024 10:36-0400 Systolic blood pressure 125 mm[Hg] Migdalia Cramer MD Work Phone: [facility] 07-12-2024 09:59-0400 Diastolic blood pressure 70 mm[Hg] Migdalia Archibald Work Phone: [facility] 07-12-2024 09:59-0400 Systolic blood pressure 142 mm[Hg] Migdalia Cramer MD Work Phone: [facility] 07-12-2024 09:31-0400 Body mass index (BMI) [Ratio] 21.23 kg/m2 Migdalia Cramer MD Work Phone: [facility] 07-12-2024 09:31-0400 Body weight 49.3 kg Migdalia Cramer MD Work Phone: [facility] 07-12-2024 09:31-0400 Heart rate 80 /min Migdalia Cramer MD Work Phone: [facility] 04-13-2023 15:23-0400 Body temperature 98.01 [degF] Willie Mitsch [employer] Work Phone: [facility] 04-13-2023 15:23-0400 Body weight 54.07 kg Willie Mitsch [employer] Work Phone: [facility] 04-13-2023 15:23-0400 Diastolic blood pressure 63 mm[Hg] Willie Mitsch [employer] Work Phone: [facility] 04-13-2023 15:23-0400 Heart rate 80 /min Willie Mitsch [employer] Work Phone: [facility] 04-13-2023 15:23-0400 Systolic blood pressure 125 mm[Hg] Willie Mitsch [employer] Work Phone: [facility] 03-29-2023 15:26-0400 Body weight 53.34 kg Willie Mitsch [employer] Work Phone: [facility] 03-29-2023 15:26-0400 Diastolic blood pressure 71 mm[Hg] Willie Mitsch [employer] Work Phone: [facility] 03-29-2023 15:26-0400 Heart rate 80 /min Willie Mitsch [employer] Work Phone: [facility] 03-29-2023 15:26-0400 Systolic blood pressure 150 mm[Hg] Willie Mitsch [employer] Work Phone: [facility] 03-17-2023 14:18-0400 Body weight 54.88 kg Willie Mitsch [employer] Work Phone: [facility] 03-17-2023 14:18-0400 Diastolic blood pressure 67 mm[Hg] Willie Mitsch [employer] Work Phone: [facility] 03-17-2023 14:18-0400 Heart rate 86 /min Willie Mitsch [employer] Work Phone: [facility] 03-17-2023 14:18-0400 Systolic blood pressure 146 mm[Hg] Willie Mitsch [employer] Work Phone: [facility] 10-23-2022 08:59-0500 Body weight 55.48 kg Migdalia Cramer MD Work Phone: [facility] 10-23-2022 08:59-0500 Diastolic blood pressure 82 mm[Hg] Migdalia Archibald Work Phone: [facility] 10-23-2022 08:59-0500 Heart rate 87 /min Migdalia Cramer MD Work Phone: [facility] 10-23-2022 08:59-0500 Systolic blood pressure 145 mm[Hg] Migdalia Cramer MD Work Phone: [facility] 05-08-2022 08:07-0400 Diastolic blood pressure 70 mm[Hg] Migdalia Archibald Work Phone: [facility] 05-08-2022 08:07-0400 Heart rate 70 /min Migdalia Cramer MD Work Phone: [facility] 05-08-2022 08:07-0400 Systolic blood pressure 130 mm[Hg] Migdalia Cramer MD Work Phone: [facility] 05-08-2022 08:05-0400 Body weight 53.48 kg Migdalia Cramer MD Work Phone: [facility] 04-03-2022 08:08-0400 Body temperature 98.01 [degF] Migdalia Cramer MD Work Phone: [facility] 04-03-2022 08:08-0400 Body weight 52.34 kg Migdalia Cramer MD Work Phone: [facility] 04-03-2022 08:08-0400 Diastolic blood pressure 68 mm[Hg] Migdalia Archibald Work Phone: [facility] 04-03-2022 08:08-0400 Heart rate 76 /min Migdalia Cramer MD Work Phone: [facility] 04-03-2022 08:08-0400 Systolic blood pressure 137 mm[Hg] Migdalia Cramer MD Work Phone: [facility] Encounters Encounter Date Encounter Type Care Provider Facility Start: 04-26-2025 ambulatory Mario Coburn ty:[facility] Start: 04-10-2025 ambulatory Mario Coburn ty:[facility] Start: 04-10-2025 Registered Referred Mario Mak MD -[facility] Start: 04-01-2025 End: 04-01-2025 ambulatory Mario Mak MD [facility] Work Phone: Start: 04-01-2025 End: 04-01-2025 Departed Referred Mario Mak MD -[facility] Start: 04-01-2025 End: 04-01-2025 ambulatory Mario RODAS Facility:[facility] Start: 03-12-2025 End: 03-12-2025 Departed Referred Mario Mak MD -[facility] Start: 03-12-2025 Registered Referred Mario Mak MD -[facility] Start: 03-12-2025 End: 03-12-2025 ambulatory Mario RODAS Facility:[facility] Start: 03-04-2025 End: 03-04-2025 ambulatory Mario Mak MD [facility] Work Phone: Start: 03-04-2025 End: 03-04-2025 Departed Referred Mario Mak MD -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) Start: 02-13-2025 End: 02-13-2025 ambulatory LIEN SIDNEY Facility:[facility] Start: 02-11-2025 End: 02-11-2025 Telephone encounter Tyesha Singleton MD Work Phone: Rheumatology Comment on above: Results (Lab results ) Start: 02-04-2025 End: 02-04-2025 ambulatory Mario Mak MD [facility] Work Phone: Start: 02-04-2025 End: 02-04-2025 Departed Referred Mario Mak MD -[facility] Start: 02-04-2025 Registered Referred Mario Mak MD -[facility] Start: 02-04-2025 End: 02-04-2025 ambulatory Mario RODAS Facility:[facility] Start: 01-16-2025 End: 01-18-2025 Refill Willie Kaur APRN.DRAKE Work Phone: Family Medicine Comment on above: Refill Request Start: 01-16-2025 End: 01-16-2025 ambulatory LIEN BANG Facility:[facility] Start: 01-16-2025 End: 01-16-2025 Patient encounter procedure Lien Bang DPM Work Phone: Plastic Surgery Comment on above: Pressure injury of r ight ankle, stage 3 (HCC) (Primary Dx) Start: 01-15-2025 End: 01-15-2025 ambulatory Mario Mak MD [facility] Work Phone: Start: 01-15-2025 End: 01-15-2025 Departed Referred Mario Mak MD -[facility] Start: 01-15-2025 End: 01-15-2025 ambulatory Mario RODAS Facility:[facility] Start: 01-08-2025 End: 01-08-2025 Patient encounter procedure Pierce Chi MD Work Phone: Plastic Surgery Comment on above: 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); Subacute osteomyelitis of right fibula (HCC); Pressure injury of right ankle, stage 3 (HCC); Type 2 diabetes mellitus 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 manifestations (HCC); Stage 3a chronic kidney disease (HCC) Start: 01-08-2025 End: 01-08-2025 ambulatory UNKNOWN PROVIDER Facility:[facility] Start: 01-07-2025 ambulatory Mario RODAS Facili ty:[facility] Start: 01-07-2025 Registered Referred Mario Mak MD [facility] Start: 01-04-2025 End: 01-04-2025 ambulatory TYESHA SINGLETON Facility:[facility] Start: 01-04-2025 End: 01-04-2025 Office outpatient new 45 minutes Tyesha Singleton MD Work Phone: Rheumatology Comment on above: Pseudogout (Primary Dx); Ankle swelling, right; Medication monitoring encounter Start: 01-03-2025 End: 01-10-2025 Telephone encounter Migdalia Cramer MD Work Phone: [address] [place] [address] Comment on above: Patient Update Start: 01-02-2025 End: 01-02-2025 Telephone encounter Aditi ALLEN Work Phone: Hematology/Oncology Comment on above: Distress Assessment Start: 01-02-2025 End: 01-02-2025 ambulatory GRUPO MENDEZ Facility:[facility] Start: 01-02-2025 End: 01-02-2025 ambulatory Grupo Mendez MD Work Phone: Hematology/Oncology Comment on above: Leukocytosis, unspec ified type (Primary Dx); Normocytic anemia; Vitamin B6 deficiency; Cellulitis of right ankle Start: 01-02-2025 End: 01-02-2025 Patient encounter procedure Grupo Mendez MD Work Phone: Hematology/Oncology Start: 2024 ambulatory Marioscottie Coburn ty:[facility] Start: 2024 Registered Referred Mario Mak MD -[facility] Start: 12-26-2024 End: 12-26-2024 Telephone encounter Migdalia Cramer MD Work Phone: [facility] [place] Comment on above: rehab discharge conc erns Start: 12-26-2024 End: 12-26-2024 Patient encounter procedure Lien Bang DPM Work Phone: Plastic Surgery Comment on above: 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) Start: 12-26-2024 End: 12-26-2024 ambulatory Migdalia Cramer MD Work Phone: Family Medicine Comment on above: Call with Nasreen foster Start: 12-25-2024 End: 12-25-2024 Refill Willie Kaur APRN.BAG VALVER Work Phone: Family Medicine [place] Comment on above: Refill Request Start: 12-24-2024 ambulatory Mario Coburn ty:[facility] Start: 12-24-2024 Registered Referred Mario Mak MD -[facility] Start: 12-18-2024 End: 12-18-2024 E-mail encounter from caregiver Willie Kaur APRN.BAG VALVER Work Phone: Family Medicine Start: 12-18-2024 End: 12-18-2024 Follow-up encounter Willie Kaur APRN.CNP Work Phone: Family Medicine Comment on above: [facility] Start: 12-17-2024 ambulatory Marioscottie Coburn ty:[facility] Start: 12-17-2024 Registered Referred Mario Mak MD [facility] Start: 12-12-2024 End: 12-12-2024 Evaluation and management of inpatient DANIEL CASTILLO Facility:[facility] Start: 12-10-2024 End: 12-10-2024 Evaluation and management of inpatient DANIEL NATHO JONATHAN Facility:[facility] Start: 11-29-2024 End: 01-08-2025 Telephone encounter Pierce Chi MD Work Phone: [facility] Comment on above: [employer] (FO R IDC USE ONLY) Start: 11-28-2024 End: 11-28-2024 ambulatory Pierce Chi MD Work Phone: [place] Provider Adult Comment on above: [employer]Pat Start Start: 11-26-2024 End: 11-26-2024 Telephone encounter Grupo Mendez MD Work Phone: Hematology/Oncology Comment on above: Appointment Start: 11-23-2024 End: 11-27-2024 Refill Willie Kaur APRN.CNP Work Phone: Family Medicine Comment on above: Refill Request Start: 11-21-2024 End: 12-12-2024 Evaluation and management of inpatient SHAUN SUAREZ Facility:[facility] Start: 11-21-2024 End: 11-22-2024 ambulatory Migdalia Cramer MD Work Phone: [facility] Comment on above: MRi and tests Start: 11-19-2024 End: 11-19-2024 ambulatory GRUPO MENDEZ Facility:[facility] Start: 11-19-2024 End: 11-19-2024 ambulatory SIMONE KEVIN Facility:[facility] Start: 11-19-2024 End: 11-19-2024 Subsequent hospital visit by physician Mri [facility] Greta (I-Stat/3t) MRI [facility] Comment on above: Chronic pain of righ t ankle [M25.571, G89.29] Start: 11-06-2024 End: 11-06-2024 ambulatory Grupo Mendez MD Work Phone: Hematology/Oncology Comment on above: [employer] up coming a ppt Start: 11-06-2024 End: 12-11-2024 Telephone encounter Willie Kaur APRN.BAG VALVER Work Phone: Family Medicine Comment on above: Appointment (Rheumat ology) Start: 11-05-2024 End: 11-05-2024 Telephone encounter Grupo Mendez MD Work Phone: Hematology/Oncology Comment on above: Results Start: 11-01-2024 End: 11-01-2024 ambulatory MIGDALIA CRAMER Facility:[facility] Start: 11-01-2024 End: 11-01-2024 ambulatory SELF Facility:[facility] Start: 11-01-2024 End: 11-01-2024 Patient encounter procedure Simone Kevin MD Work Phone: Orthopaedic Surgery [facility] Comment on above: Right ankle swelling (Primary Dx); Chronic pain of right ankle Start: 11-01-2024 End: 11-01-2024 Subsequent hospital visit by physician Xr [facility] Greta 1 Xray [facility] Comment on above: Right ankle swelling [M25.471] Start: 10-29-2024 End: 10-29-2024 ambulatory AB BENSON Facility:[facility] Start: 10-29-2024 End: 10-29-2024 Office outpatient visit 15 minutes Ab Benson MD Work Phone: Family Medicine Comment on above: Chronic pain of righ t ankle (Primary Dx) Start: 10-11-2024 End: 10-12-2024 Refill Willie Kaur APRN.BAG VALVER Work Phone: Family Medicine Comment on above: Refill Request Start: 09-20-2024 End: 09-20-2024 ambulatory GRUPO OSCAR Facility:[facility] Start: 09-20-2024 End: 09-20-2024 Patient encounter procedure Simone Kevin MD Work Phone: Orthopaedic Surgery [facility] Comment on above: Right ankle swelling ; Closed nondisplaced fracture of right calcaneus, unspecified portion of calcaneus, initial encounter Start: 09-19-2024 End: 09-19-2024 ambulatory MIGDALIA CRAMER Facility:[facility] Start: 09-19-2024 End: 09-19-2024 Subsequent hospital visit by physician Xr [facility] Adryan Work Phone: Radiology Comment on above: Pain in joint involv ing right ankle and foot [M25.571] Start: 09-18-2024 End: 09-18-2024 Telephone encounter Grupo Mendez MD Work Phone: Hematology/Oncology Comment on above: Results (Suspicion f or calcaneal bone fracture ) Start: 09-18-2024 [facility] Start: 09-18-2024 End: 09-18-2024 Subsequent hospital visit by physician [facility] 2 Work Phone: Radiology Comment on above: Right ankle swelling [M25.471] Start: 09-17-2024 End: 09-18-2024 ambulatory GRUPO OSCAR Facility:[facility] Start: 09-17-2024 End: 09-17-2024 Subsequent hospital visit by physician Xr [facility] Adryan Work Phone: Radiology Comment on above: Right ankle swelling [M25.471] Start: 09-17-2024 End: 09-19-2024 ambulatory Grupo Mendez MD Work Phone: Hematology/Oncology Comment on above: Leukocytosis, unspec ified type (Primary Dx); Normocytic anemia; Right ankle swelling Start: 09-17-2024 End: 09-19-2024 Patient encounter procedure Grupo Mendez MD Work Phone: Hematology/Oncology Start: 09-15-2024 End: 09-17-2024 ambulatory Migdalia Cramer MD Work Phone: Family Medicine Comment on above: Swollen ankle Start: 09-13-2024 End: 09-13-2024 ambulatory MIGDALIA CRAMER Facility:[facility] Start: 09-13-2024 End: 09-13-2024 Patient encounter procedure Migdalia Cramer MD Work Phone: Family Medicine Comment on above: Medicare annual well ness visit, subsequent (Primary Dx); Screening for depression; Insomnia; Encounter for screening examination for other mental health and behavioral disorders; Abrasion of right ankle, initial encounter; Essential hypertension; Primary insomnia; Hyperlipidemia associated with type 2 diabetes mellitus (HCC) (HCC); Hypertensive kidney disease with stage 3b chronic kidney disease (HCC); CKD stage 3 due to type 2 diabetes mellitus (HCC); Diabetes mellitus, non-insulin dependent (NIDDM or type II) (HCC); Iron deficiency anemia, unspecified iron deficiency anemia type; Leukocytosis, unspecified type Start: 09-04-2024 End: 09-05-2024 ambulatory Migdalia Cramer MD Work Phone: [facility] Comment on above: Lab results and next steps Start: 09-04-2024 End: 09-05-2024 E-mail encounter from caregiver Migdalia Cramer MD Work Phone: [facility] Start: 08-21-2024 End: 08-24-2024 Refill Migdalia Cramer MD Work Phone: [facility] Comment on above: Refill Request Results Start: 08-14-2024 End: 08-14-2024 ambulatory WILLIE KAUR Facility:[facility] Start: 08-14-2024 End: 08-14-2024 ambulatory MARIUSZ ROMO Facility:[facility] Start: 08-14-2024 End: 08-14-2024 Office outpatient visit 25 minutes Migdalia Cramer MD Work Phone: Family Medicine Comment on above: Generalized weakness (Primary Dx); Headache, unspecified headache type; Leukocytosis, unspecified type; CKD stage 3 due to type 2 diabetes mellitus (HCC); Normocytic anemia; Essential hypertension; Insomnia; Arthralgia, unspecified joint Start: 08-13-2024 End: 08-13-2024 Emergency department patient visit MARIUSZ ROMO Facility:[facility] Start: 08-13-2024 End: 08-13-2024 ambulatory Migdalia Cramer MD Work Phone: [facility] Comment on above: Fatigue Start: 08-09-2024 End: 08-10-2024 Refill Willie Mitsch [employer]ER [employer]ER[employer]BAG VALVER Work Phone: [facility] Comment on above: Refill Request Start: 07-19-2024 End: 07-19-2024 Refill Migdalia Cramer MD Work Phone: [facility] Comment on above: Refill Request Start: 07-12-2024 End: 07-12-2024 ambulatory MIGDALIA CRAMER Facility:[facility] Start: 07-12-2024 End: 07-12-2024 Office outpatient visit 25 minutes Migdalia Cramer MD Work Phone: [facility] Comment on above: Essential hypertensi on (Primary Dx); CKD stage 3 due to type 2 diabetes mellitus (HCC); Hypertensive kidney disease with stage 3b chronic kidney disease (HCC); Hyperlipidemia associated with type 2 diabetes mellitus (HCC) (HCC); Diabetes mellitus, non-insulin dependent (NIDDM or type II) (HCC); Dyslipidemia; Weight loss; Iron deficiency anemia, unspecified iron deficiency anemia type Start: 07-11-2024 End: 07-11-2024 ambulatory WILLIE MITSCH Facility:[facility] Start: 05-23-2024 Refill Willie Mitsch PL[employer]ER [employer]ER[employer]BAG VALVER Work Phone: [facility] Comment on above: Refill Request Start: 04-25-2024 Refill Willie Mitsch [employer]ER [employer]ER[employer]BAG [employer]VER Work Phone: [facility] Comment on above: Refill Request Start: 04-16-2024 Telephone encounter Migdalia hidalgo MD Work Phone: [facility] Comment on above: Medication Problem Start: 03-21-2024 End: 03-21-2024 ambulatory GERTRUDIS BILL Facility:[facility] Start: 03-21-2024 End: 03-21-2024 Patient encounter procedure Gertrudis Bill DO Work Phone: Ophthalmology Comment on above: Type 2 diabetes karen itus without retinopathy (HCC) (Primary Dx); Pseudophakia Start: 03-13-2024 ambulatory Lien Mejia [facility] Start: 03-13-2024 Patient encounter procedure Lien Mejia MA [facility] Comment on above: Population Health Na vigation Outreach ([facility]/) Start: 02-28-2024 Refill Migdalia gordon MD Work Phone: [facility] Start: 02-01-2024 Refill Ok Stockton Work Phone: [facility] Comment on above: Refill Request Start: 01-31-2024 Refill Ok Stockton Work Phone: [facility] Comment on above: Refill Request Start: 01-23-2024 Refill Migdalia gordon MD Work Phone: [facility] Comment on above: Refill Request Start: 01-11-2024 Refill Migdalia gordon MD Work Phone: [facility] Start: 10-14-2023 Refill Migdalia gordon MD Work Phone: [facility] Comment on above: Refill Request Start: 09-05-2023 Refill Willie Kaur APRN.CNP Work Phone: [facility] Comment on above: Refill Request Start: 08-31-2023 Telephone encounter Migdalia hidalgo MD Work Phone: [facility] Comment on above: Medication Problem Start: 06-23-2023 Refill Migdalia gordon MD Work Phone: [facility] Comment on above: Refill Request Start: 06-02-2023 Refill Migdalia gordon MD Work Phone: [facility] Comment on above: Refill Request Start: 05-11-2023 ambulatory Migdalia gordon MD Work Phone: Family Medicine Comment on above: Blood sugar levels Start: 04-28-2023 ambulatory No Pcp Christelle [facility]eller [facility] Start: 04-19-2023 Telephone encounter Migdalia hidalgo MD Work Phone: Family Medicine Comment on above: Appointment (Re: Up oming appointment) Patient Question (Re : Blood Glucose Monitor) Start: 04-13-2023 End: 04-13-2023 Patient encounter procedure iWllie Kaur APRN.BAG VALVER Work Phone: Family Medicine Comment on above: Diabetes mellitus, n on-insulin dependent (NIDDM or type II) (HCC) (Primary Dx); CKD stage 3 due to type 2 diabetes mellitus (HCC) Start: 03-29-2023 End: 03-29-2023 Patient encounter procedure Willie Kaur APRN.BAG VALVER Work Phone: Family Medicine Comment on above: Diabetes mellitus, n on-insulin dependent (NIDDM or type II) (HCC) (Primary Dx); Essential hypertension; CKD stage 3 due to type 2 diabetes mellitus (HCC) Start: 03-24-2023 Telephone encounter Migdalia hidalgo MD Work Phone: Family Medicine Comment on above: Patient Update (Medi cation update on how it is working with the change in medication -please call her caregiver Demetria ) Start: 03-22-2023 Telephone encounter Migdalia hidalgo MD Work Phone: Family Medicine Comment on above: Patient Question Start: 03-17-2023 End: 03-17-2023 Patient encounter procedure Willie Kaur APRN.BAG VALVER Work Phone: Family Medicine Comment on above: Pain in both hands ( Primary Dx); Pain in both wrists; Leukocytosis, unspecified type; Type 2 diabetes mellitus with stage 3 chronic kidney disease, without long-term current use of insulin, unspecified whether stage 3a or 3b CKD (HCC); Muscular deconditioning Start: 03-10-2023 Patient Outreach Lien jensen RN Work Phone: [facility] Comment on above: Transition Of Care ( [facility] [place], initial outreach) Start: 02-22-2023 Refill Willie Mitsch PL[employer]ER TAILER[employer]BAG VALVER Work Phone: Family Medicine [place] Comment on above: Refill Request Start: 01-19-2023 Telephone encounter Migdalia hidalgo MD Work Phone: Family Medicine Comment on above: Refill Request Start: 12-28-2022 Refill Willie Mitsch PL[employer]ER TAILER[employer]BAG VALVER Work Phone: Family Medicine Comment on above: Refill Request Start: 10-23-2022 End: 10-23-2022 Patient encounter procedure Migdalia Cramer MD Work Phone: Family Medicine Comment on above: Diabetes mellitus, n on-insulin dependent (NIDDM or type II) (HCC) (Primary Dx); Hyperlipidemia with target LDL less than 100; Screening for diabetic retinopathy; Hypertensive kidney disease with stage 3b chronic kidney disease (HCC); Hyperlipidemia associated with type 2 diabetes mellitus (HCC); Essential hypertension; CKD stage 3 due to type 2 diabetes mellitus (HCC) Start: 10-02-2022 Refill Migdalia gordon MD Work Phone: Family Medicine Comment on above: Refill Request Start: 09-29-2022 Refill Migdalia gordon MD Work Phone: [facility] Comment on above: Refill Request Start: 08-17-2022 Refill Willie Mitsch PLANER TAILER[employer]BAG VALVER Work Phone: [facility] Comment on above: Refill Request (SEE RX NOTES) Start: 06-10-2022 Telephone encounter Migdalia hidalgo MD Work Phone: Family Medicine Comment on above: Orders (Cologuard no t completed) Start: 05-28-2022 Telephone encounter Migdalia hidalgo MD Work Phone: [facility] Comment on above: Medication Problem ( Glyburide) Start: 05-08-2022 End: 05-08-2022 Patient encounter procedure Migdalia Cramer MD Work Phone: Family Medicine Comment on above: Iron deficiency anem ia, unspecified iron deficiency anemia type (Primary Dx); Acute cystitis with hematuria; Diabetes mellitus, non-insulin dependent (NIDDM or type II) (HCC); CKD stage 3 due to type 2 diabetes mellitus (HCC); Essential hypertension; Hyperlipidemia associated with type 2 diabetes mellitus (HCC); Hypertensive kidney disease with stage 3b chronic kidney disease (HCC) Start: 04-27-2022 ambulatory Katia Farooq RN IN [facility] Start: 04-27-2022 Follow-up encounter Katia love RN [facility] Comment on above: Transition Of Care ( TCM follow up) Start: 04-26-2022 Telephone encounter Migdalia hidalgo MD Work Phone: [facility] Comment on above: Patient Question Start: 04-08-2022 Telephone encounter Migdalia hidalgo MD Work Phone: [facility] Comment on above: Lab Orders Start: 04-03-2022 End: 04-03-2022 Patient encounter procedure Migdalia Cramer MD Work Phone: [facility] Comment on above: Acute cystitis witho ut hematuria (Primary Dx); Hypertensive kidney disease with stage 3b chronic kidney disease (HCC); Hyperlipidemia associated with type 2 diabetes mellitus (HCC); Essential hypertension; CKD stage 3 due to type 2 diabetes mellitus (HCC); Diabetes mellitus, non-insulin dependent (NIDDM or type II) (HCC); Iron deficiency anemia, unspecified iron deficiency anemia type; Normocytic anemia; Shoulder arthritis; Hip arthritis; Traumatic complete tear of right rotator cuff, sequela; Sacroiliitis (HCC) Start: 03-30-2022 ambulatory Migdalia gordon MD Work Phone: [facility] Comment on above: Pain; UTI Start: 03-29-2022 Telephone encounter Willie norman APRN.BAG VALVER Work Phone: Family Medicine Comment on above: Appointment (please make sure she schedules hospital follow up) Start: 03-23-2022 Refill Migdalia gordon MD Work Phone: Internal Medicine Comment on above: Refill Request Start: 03-19-2022 Refill Willie Kaur APRN.BAG VALVER Work Phone: [facility] Comment on above: Refill Request Start: 02-25-2022 Telephone encounter Migdalia hidalgo MD Work Phone: [facility] Comment on above: Medication Request Start: 12-25-2021 Refill Migdalia gordon MD Work Phone: [facility] Comment on above: Refill Request Start: 07-14-2021 End: 07-14-2021 Subsequent hospital visit by physician Max [facility] Work Phone: Radiology Comment on above: Pain [R52] Procedures Date Procedure Procedure Detail Performing Clinician Start: 04-10-2025 Urine culture Mario mendoza MD Start: 04-10-2025 Urnls dip stick/tabl et reagent auto microscopy Mario Mak MD Start: 01-07-2025 Measurement of renal function Mario Mak MD Comment on above: GFR Calc Start: 01-02-2025 Antibody screen MIGDALIA ALFONSO Comment on above: Order Comment: Speci men Type: BLOOD SPECIMEN Ordering Facility: [facility] Address: [address] [place] [address] Performed By: #### B [id number] #### [facility] ILLUMINA [facility] CLIA [id number] [address] [place] [address] [place] #### [id number] #### [facility] CLIA [id number] [address] [place] [address] [place] Start: 2024 Measurement of renal function Mario Mak MD Comment on above: GFR Calc Start: 12-24-2024 Folic acid measurement Mario Mak MD Start: 12-24-2024 Measurement of renal function Mario Mak MD Comment on above: GFR Calc Start: 12-24-2024 Total iron binding c apacity measurement Mario Mak MD Start: 12-17-2024 Measurement of renal function Mario Mak MD Comment on above: GFR Calc Start: 11-26-2024 Electrocardiogram UNKNO WN PROVIDER Start: 11-19-2024 Mri any jt lower ext rem w/o contrast matrl Simone Kevin MD Work Phone: Start: 09-18-2024 Dup-scan xtr veins unilateral/limited study Grupo Mendez MD Work Phone: Start: 09-13-2024 Adult depression scr eening assessment Migdalia Cramer MD Work Phone: Start: 07-14-2021 Radex shoulder compl ete minimum 2 views Simone Lyon MD Work Phone: Start: 06-14-2012 Colonoscopy Migdalia holt MD Work Phone: Plan of Treatment Date Care Activity Detail Author Start: 09-13-2025 Anxiety Screening Anxiety Screening [facility] Start: 09-13-2025 Covid-19 Vaccine ( season) Covid-19 Vaccine ( season) [facility] Comment on above: Postponed from 07/15/2024 (Declined at t his time) Start: 09-13-2025 Depression Screening Depression Screening [facility] Start: 09-13-2025 Diabetic foot examination Diabetic Foot Exam [facility] Start: 09-13-2025 RSV Vaccine (1 - 1-dose 75+ series) RSV Vaccine (1 - 1-dose 75+ series) [facility] Comment on above: Postponed from 2010 (Declined at t his time) Start: 09-13-2025 Shingrix Vaccine (2 of 3) Shingrix Vaccine (2 of 3) [facility] Comment on above: Postponed from 03/19/2015 (Declined at t his time) Start: 09-13-2025 Urine microalbumin profile DTaP,Tdap,Td Vaccine (1 - Tdap) [facility] Comment on above: Postponed from 1954 (Declined at t his time) Start: 08-14-2025 Hepatitis B screening Urine Albumin:Creatinine Ratio [facility] Start: 07-11-2025 Hepatitis B surface antibody level LDL Cholesterol [facility] Start: 07-05-2025 End: 07-05-2025 Patient encounter procedure Rheumatology Comment on above: Return in about 6 months (around 07/04/20 25) for Pseudogout 20m. F/u 6 months Start: 05-13-2025 Influenza vaccination Influenza Vaccine (#1) [place] Comment on above: Postponed from 07/15/2024 (Declined at t his time) Start: 03-21-2025 Glaucoma screening Dilated Retinal Exam [facility] Start: 03-12-2025 End: 03-12-2025 Patient encounter procedure 03/12/2025 9:00 AM EDT Office Visit Family Medicine [address] [place], [place] [id number] [place] [address] [place], [place] [id number] 6 month follow up Family Medicine Comment on above: 6 month follow up Start: 02-19-2025 Hemoglobin A1c measurement HbA1C [facility] Start: 02-13-2025 End: 05-15-2025 CBC W Auto Differential panel - Blood COMPLETE BLOOD COUNT AND DIFFERENTIAL Lab Routine Normocytic anemia Expected: 02/13/2025, Expires: 05/15/2025 [facility] Work Phone: Comment on above: Expected: 02/13/2025, Expires: Start: 02-13-2025 End: 05-15-2025 Comprehensive metabolic 2000 panel - Serum or Plasma COMPREHENSIVE METABOLIC PANEL Lab Routine Normocytic anemia Expected: 02/13/2025, Expires: 05/15/2025 [facility] Comment on above: Expected: 02/13/2025, Expires: Start: 02-13-2025 End: 05-15-2025 Pyridoxine [Mass/volume] in Serum or Plasma VITAMIN B6/PYRIDOXIN Lab Routine Normocytic anemia Vitamin B6 deficiency Expected: 02/13/2025, Expires: 05/15/2025 [facility] Comment on above: Expected: 02/13/2025, Expires: Start: 02-13-2025 End: 02-13-2025 Patient encounter procedure 02/13/2025 1:30 PM EDT Office Visit Plastic Surgery [address] [place] [address] Lien Bang, ANIRUDH [address], [address] [place] [address] appt confirmed with Nj at [facility] Right ankle-rescheduled with Malia at [facility] 01-28-2025 10:22am-KT Plastic Surgery Comment on above: appt confirmed with Nj at [facility] [place] Right ankle-rescheduled with Malia at [facility] 01-28-2025 10:22am-KT Start: 02-11-2025 End: 09-13-2025 Basic metabolic 2000 panel - Serum or Plasma BASIC METABOLIC PANEL Lab Routine Essential hypertension Hypertensive kidney disease with stage 3b chronic kidney disease (HCC) CKD stage 3 due to type 2 diabetes mellitus (HCC) Diabetes mellitus, non-insulin dependent (NIDDM or type II) (HCC) Expected: 02/11/2025, Expires: 09/13/2025 [facility] Work Phone: Comment on above: Expected: 02/11/2025, Expires: Start: 02-11-2025 End: 05-13-2025 CBC panel - Blood by Automated count COMPLETE BLOOD COUNT Lab Routine Iron deficiency anemia, unspecified iron deficiency anemia type Leukocytosis, unspecified type Expected: 02/11/2025, Expires: 05/13/2025 [facility] Comment on above: Expected: 02/11/2025, Expires: Start: 02-11-2025 End: 09-13-2025 Hemoglobin A1c in Blood HEMOGLOBIN A1C Lab Routine Diabetes mellitus, non-insulin dependent (NIDDM or type II) (HCC) Expected: 02/11/2025, Expires: 09/13/2025 [facility] Comment on above: Expected: 02/11/2025, Expires: Start: 02-11-2025 End: 09-13-2025 LIPID PANEL, NONFASTING LIPID PANEL, NONFASTING Lab Routine Hyperlipidemia associated with type 2 diabetes mellitus (HCC) (HCC) Diabetes mellitus, non-insulin dependent (NIDDM or type II) (HCC) Expected: 02/11/2025, Expires: 09/13/2025 [facility] Comment on above: Expected: 02/11/2025, Expires: Start: 01-30-2025 End: 01-30-2025 Patient encounter procedure 01/30/2025 1:30 PM EDT Office Visit Plastic Surgery [address] [place] [address] Lien Bang, ANIRUDH [address], [address] [place] [address] Right ankle Plastic Surgery Comment on above: Right ankle Start: 01-16-2025 End: 01-16-2025 Patient encounter procedure 01/16/2025 1:00 PM EST Office Visit Plastic Surgery [address] [place] [address] Lien Bang, ANIRUDH [address], [address] [place] [id number] Right ankle Plastic Surgery Comment on above: Right ankle Start: 01-08-2025 End: 01-08-2025 Patient encounter procedure Plastic Surgery Comment on above: new to us f/u abx from hospital visit mark carranza from [facility] [phone] f/u abx from hospita l visit patient from [facility] [phone] confirmed with Nj at [facility] 01/04/2021 f/u abx from hospital visit patient from [facility] [phone] Start: 01-04-2025 End: 01-04-2025 Patient encounter procedure 01/04/2025 8:00 AM EST Office Visit Rheumatology [address] [place] [address] Tyesha Singleton MD [address] [place], [place] [id number] Inflammatory Arthritis per dr mcghee Rheumatology Comment on above: Inflammatory Arthritis per dr mcghee Start: 01-02-2025 End: 01-02-2025 Follow-up encounter 01/02/2025 8:30 AM EST Visit (SP) Office Hematology/Oncology [address] [place] [address] [place] [address] [place] [address] Follow up Hematology/Oncology Comment on above: Follow up Start: 12-26-2024 End: 12-26-2024 Patient encounter procedure 12/26/2024 1:00 PM EST Office Visit Plastic Surgery [address] [place] [address] Lien Bang DPM [address], [address] [place] [id number] new to us right ankle -f/u from hospital visit Plastic Surgery Comment on above: new to us right ankle -f/u from hospital visit Start: 11-27-2024 End: 11-27-2024 Incision & drainage abscess simple/single INCISION AND DRAINAGE ABSCESS EXTREMITY LOWER SIMPLE OR SINGLE Abscess of right lower leg 11/27/2024 3:57 PM EST ME OR Start: 11-27-2024 End: 11-27-2024 Evaluation and management of inpatient 11/27/2024 2:44 PM EST - 11/27/2024 3:53 PM EST Surgery [facility] Surgery [address] [place] [address] Keerthi Plata, ANIRUDH [address] [facility], [address] [address] INCISION AND DRAINAGE ABSCESS EXTREMITY LOWER SIMPLE OR SINGLE [facility] Surgery Comment on above: INCISION AND DRAINAGE ABSCESS EXTREMITY LOWER SIMPLE OR SINGLE Start: 11-27-2024 End: 11-27-2024 Incision & drainage abscess simple/single INCISION AND DRAINAGE ABSCESS EXTREMITY LOWER SIMPLE OR SINGLE Abscess of right lower leg 11/27/2024 2:44 PM EST ME OR Start: 11-26-2024 End: 11-26-2024 Incision & drainage leg/ankle abscess/hematoma INCISION AND DRAINAGE ABSCESS LEG OR ANKLE Cellulitis of right lower leg 11/26/2024 4:15 PM EST ME OR Start: 11-22-2024 End: 11-22-2024 ambulatory 11/22/2024 9:10 AM EST Visit (SP) Office Hematology/Oncology [address] [place] [address] [place] [address] [place] [address] folow up Iron Hematology/Oncology Comment on above: folow up Iron Start: 11-21-2024 End: 02-20-2025 CBC W Auto Differential panel - Blood COMPLETE BLOOD COUNT AND DIFFERENTIAL Lab Routine Normocytic anemia Leukocytosis, unspecified type Expected: 11/21/2024, Expires: 02/20/2025 [facility] Work Phone: Comment on above: Expected: 11/21/2024, Expires: Start: 11-21-2024 End: 02-20-2025 Ferritin [Mass/volume] in Serum or Plasma FERRITIN Lab Routine Normocytic anemia Expected: 11/21/2024, Expires: 02/20/2025 [facility] Comment on above: Expected: 11/21/2024, Expires: Start: 11-21-2024 End: 02-20-2025 Iron and Iron binding capacity panel - Serum or Plasma IRON AND TIBC Lab Routine Normocytic anemia Expected: 11/21/2024, Expires: 02/20/2025 [facility] Comment on above: Expected: 11/21/2024, Expires: Start: 11-21-2024 End: 02-20-2025 Zinc [Mass/volume] in Serum or Plasma ZINC BLD Lab Routine Normocytic anemia Expected: 11/21/2024, Expires: 02/20/2025 [facility] Comment on above: Expected: 11/21/2024, Expires: Start: 11-21-2024 End: 11-21-2024 ambulatory 11/21/2024 9:15 AM EST Results Only [facility] [address] [place] [address] lab [facility] Comment on above: lab Start: 11-19-2024 End: 11-19-2024 Patient encounter procedure 11/19/2024 9:30 AM EST Appointment MRI [facility] [address] [place] [address] Chronic pain of right ankle [M25.571, G89.29] MRI [facility] Comment on above: Chronic pain of right ankle [M25.571, G8 9.29] Start: 11-14-2024 Advance Directive Discussion Advance Directive Discussion [facility] Start: 11-14-2024 Hemoglobin A1c measurement HbA1C [facility] Start: 11-01-2024 End: 01-31-2025 C reactive protein [Mass/volume] in Serum or Plasma [facility] Comment on above: Expected: 11/01/2024, Expires: Start: 11-01-2024 End: 01-31-2025 Erythrocyte sedimentation rate [facility] Comment on above: Expected: 11/01/2024, Expires: Start: 10-11-2024 Hemoglobin A1c measurement HbA1C [facility] Start: 09-20-2024 End: 09-20-2024 Patient encounter procedure 09/20/2024 9:10 AM EST Office Visit Orthopaedic Surgery [facility] [address] [place] [address] Simone Kevin MD [address] [place] [address] Right ankle swelling [M25.471]; Closed nondisplaced fracture of right calcaneus, unspecified portion of calcaneus, initial encounter [S92.001A] Orthopaedic Surgery [facility] Comment on above: Right ankle swelling [M25.471]; Closed n ondisplaced fracture of right calcaneus, unspecified portion of calcaneus, initial encounter [S92.001A] Start: 09-18-2024 End: 09-18-2024 Patient encounter procedure 09/18/2024 8:15 AM EST Appointment Radiology [address] [place] [address] Right ankle swelling [M25.471] Radiology Comment on above: Right ankle swelling [M25.471] Start: 09-17-2024 End: 09-17-2024 [facility] visit new patient 09/17/2024 3:10 PM EST Visit (SP) Office Hematology/Oncology [address] [place] [phone] [place] [address] [place] [phone] New patient Hematology/Oncology Comment on above: New patient Start: 09-17-2024 End: 12-17-2024 Pyridoxine [Mass/volume] in Serum or Plasma [facility] Work Phone: Comment on above: Expected: 09/17/2024, Expires: Start: 09-13-2024 End: 09-13-2024 Patient encounter procedure 09/13/2024 10:00 AM EDT Office Visit Family Medicine [address] [place], [place] [id number] [place] [address] [place] [id number] AWV Due Family Medicine Comment on above: AWV Due Start: 09-11-2024 End: 12-11-2024 Basic metabolic 2000 panel - Serum or Plasma BASIC METABOLIC PANEL Lab Routine CKD stage 3 due to type 2 diabetes mellitus (HCC) Hypertensive kidney disease with stage 3b chronic kidney disease (HCC) Essential hypertension Diabetes mellitus, non-insulin dependent (NIDDM or type II) (HCC) Expected: 09/11/2024, Expires: 12/11/2024 [facility] Work Phone: Comment on above: Expected: 09/11/2024, Expires: Start: 09-11-2024 End: 12-11-2024 CBC panel - Blood by Automated count COMPLETE BLOOD COUNT Lab Routine Iron deficiency anemia, unspecified iron deficiency anemia type Expected: 09/11/2024, Expires: 12/11/2024 [facility] Comment on above: Expected: 09/11/2024, Expires: Start: 09-11-2024 End: 12-11-2024 Hemoglobin A1c in Blood HEMOGLOBIN A1C Lab Routine Diabetes mellitus, non-insulin dependent (NIDDM or type II) (HCC) Expected: 09/11/2024, Expires: 12/11/2024 [facility] Comment on above: Expected: 09/11/2024, Expires: Start: 09-11-2024 End: 12-11-2024 Microalbumin/Creatinine [Mass Ratio] in Urine ALBUMIN/CREATININE RATIO, URINE Lab Routine CKD stage 3 due to type 2 diabetes mellitus (HCC) Essential hypertension Diabetes mellitus, non-insulin dependent (NIDDM or type II) (HCC) Expected: 09/11/2024, Expires: 12/11/2024 [facility] Comment on above: Expected: 09/11/2024, Expires: Start: 09-11-2024 End: 12-11-2024 Thyrotropin [Units/volume] in Serum or Plasma THYROID STIMULATING HORMONE Lab Routine Hypertensive kidney disease with stage 3b chronic kidney disease (HCC) Essential hypertension Hyperlipidemia associated with type 2 diabetes mellitus (HCC) (HCC) Diabetes mellitus, non-insulin dependent (NIDDM or type II) (HCC) Dyslipidemia Weight loss Iron deficiency anemia, unspecified iron deficiency anemia type Expected: 09/11/2024, Expires: 12/11/2024 [facility] Comment on above: Expected: 09/11/2024, Expires: 5 Start: 08-14-2024 End: 11-13-2024 Bacteria identified in Urine by Culture [facility] Comment on above: Expected: 08/14/2024, Expires: 4 Start: 08-14-2024 End: 11-13-2024 C reactive protein [Mass/volume] in Serum or Plasma [facility] Comment on above: Expected: 08/14/2024, Expires: 4 Start: 08-14-2024 End: 11-13-2024 CBC W Ordered Manual Differential panel - Blood [facility] Comment on above: Expected: 08/14/2024, Expires: Start: 08-14-2024 End: 11-13-2024 Erythrocyte sedimentation rate [facility] Work Phone: Comment on above: Expected: 08/14/2024, Expires: 4 Start: 08-14-2024 End: 11-13-2024 PROTEIN ELECT RND UR W/[facility] Comment on above: Expected: 08/14/2024, Expires: Start: 08-14-2024 End: 11-13-2024 PROTEIN ELECTROPHORESIS SERUM W/[facility] Comment on above: Expected: 08/14/2024, Expires: 4 Start: 08-14-2024 End: 11-13-2024 URINALYSIS, DIPSTICK ONLY [facility] Comment on above: Expected: 08/14/2024, Expires: 4 Start: 08-14-2024 End: 08-14-2024 Patient encounter procedure 08/14/2024 10:40 AM EDT Office Visit Family Medicine [address] [place] [address] [place] [address] [facility] [address] Elevated white count and dehydration/fatigue Family Medicine Comment on above: Elevated white count and dehydration/fat igue Start: 07-15-2024 Covid-19 Vaccine ( season) Covid-19 Vaccine ( season) [facility] Start: 07-15-2024 Covid-19 Vaccine ( season) Covid-19 Vaccine ( season) [facility] Start: 07-15-2024 Influenza vaccination [facility] Start: 07-12-2024 End: 07-12-2024 Patient encounter procedure 07/12/2024 9:40 AM EDT Office Visit Family Medicine [address] [place] [address] [place] [address] [facility] [address] Follow Up Family Medicine Comment on above: Follow Up Start: 04-12-2024 End: 04-12-2024 Patient encounter procedure 04/12/2024 11:30 AM EDT Office Visit Rheumatology [address] [place] [address] [phone] [place] [address] [place] [address] HFU pseudogout Rheumatology Comment on above: HFU pseudogout Start: 03-21-2024 End: 03-21-2024 Patient encounter procedure 03/21/2024 10:45 AM EDT Office Visit [facility] Ophthalmology [address] [place] [address] Gertrudis Bill, [address] [place] [address] Dilated Retinal Exam Ophthalmology Comment on above: Dilated Retinal Exam Start: 03-13-2024 End: 09-13-2024 Basic metabolic 2000 panel - Serum or Plasma BASIC METABOLIC PANEL Lab Routine Diabetes mellitus, non-insulin dependent (NIDDM or type II) (HCC) Hyperlipidemia associated with type 2 diabetes mellitus (HCC) (HCC) Essential hypertension Expected: 03/13/2024, Expires: 09/13/2024 [facility] Comment on above: Expected: 03/13/2024, Expires: Start: 03-13-2024 End: 09-13-2024 Hemoglobin A1c in Blood HEMOGLOBIN A1C Lab Routine Diabetes mellitus, non-insulin dependent (NIDDM or type II) (HCC) Expected: 03/13/2024, Expires: 09/13/2024 [facility] Work Phone: Comment on above: Expected: 03/13/2024, Expires: Start: 03-13-2024 End: 09-13-2024 LIPID PANEL, NONFASTING LIPID PANEL, NONFASTING Lab Routine Hyperlipidemia associated with type 2 diabetes mellitus (HCC) (HCC) Expected: 03/13/2024, Expires: 09/13/2024 [facility] Comment on above: Expected: 03/13/2024, Expires: Start: 03-13-2024 End: 09-13-2024 Microalbumin/Creatinine [Mass Ratio] in Urine ALBUMIN/CREATININE RATIO, URINE Lab Routine Diabetes mellitus, non-insulin dependent (NIDDM or type II) (HCC) Expected: 03/13/2024, Expires: 09/13/2024 [facility] Comment on above: Expected: 03/13/2024, Expires: Start: 11-14-2023 Advance Directive Discussion Advance Directive Discussion [facility] Start: 11-14-2023 Behavioral Health Screening Behavioral Health Screening [facility] Start: 11-14-2023 Depression Assessment Depression Assessment [facility] Start: 11-12-2023 Hemoglobin A1c measurement HbA1C [facility] Start: 11-12-2023 Hemoglobin A1c/Hemoglobin.total in Blood HBA1C [facility] Start: 10-23-2023 3 comp foot exam completed DIABETIC FOOT EXAM [facility] Start: 10-23-2023 Diabetic foot examination Diabetic Foot Exam [facility] Start: 10-21-2023 Hepatitis B screening URINE ALBUMIN:CREATININE RATIO [facility] Start: 10-21-2023 Hepatitis B surface antibody level LDL CHOLESTEROL [facility] Start: 09-07-2023 Hemoglobin A1c/Hemoglobin.total in Blood HBA1C [facility] Start: 07-15-2023 Covid-19 Vaccine ( season) Covid-19 Vaccine () [facility] Start: 07-15-2023 Influenza vaccination [facility] Start: 06-17-2023 End: 08-17-2023 Basic metabolic 2000 panel - Serum or Plasma BASIC METABOLIC PNL Lab Routine Type 2 diabetes mellitus with stage 3 chronic kidney disease, without long-term current use of insulin, unspecified whether stage 3a or 3b CKD (HCC) Expected: 06/17/2023 (Approximate), Expires: 08/17/2023 [facility] Work Phone: Comment on above: Expected: 06/17/2023 (Approximate), Expi res: 08/17/2023 Start: 06-17-2023 End: 08-17-2023 Hemoglobin A1c in Blood HGB A1C Lab Routine Type 2 diabetes mellitus with stage 3 chronic kidney disease, without long-term current use of insulin, unspecified whether stage 3a or 3b CKD (HCC) Expected: 06/17/2023 (Approximate), Expires: 08/17/2023 [facility] Work Phone: Comment on above: Expected: 06/17/2023 (Approximate), Expi res: 08/17/2023 Start: 04-29-2023 End: 06-29-2023 Basic metabolic 2000 panel - Serum or Plasma BASIC METABOLIC PNL Lab Routine CKD stage 3 due to type 2 diabetes mellitus (HCC) Diabetes mellitus, non-insulin dependent (NIDDM or type II) (HCC) Expected: 04/29/2023 (Approximate), Expires: 06/29/2023 [facility] Work Phone: Comment on above: Expected: 04/29/2023 (Approximate), Expi res: 06/29/2023 Start: 04-21-2023 Hemoglobin A1c/Hemoglobin.total in Blood HBA1C [facility] Start: 03-23-2023 End: 05-23-2023 Basic metabolic 2000 panel - Serum or Plasma BASIC METABOLIC PNL Lab Routine Diabetes mellitus, non-insulin dependent (NIDDM or type II) (HCC) Expected: 03/23/2023, Expires: 05/23/2023 [facility] Work Phone: Comment on above: Expected: 03/23/2023, Expires: 3 Start: 03-23-2023 End: 05-23-2023 Hemoglobin A1c in Blood HGB A1C Lab Routine Diabetes mellitus, non-insulin dependent (NIDDM or type II) (HCC) Expected: 03/23/2023, Expires: 05/23/2023 [facility] Work Phone: Comment on above: Expected: 03/23/2023, Expires: 3 Start: 03-23-2023 End: 05-23-2023 SCHEDULE LAB TESTING SCHEDULE LAB TESTING Lab Routine Diabetes mellitus, non-insulin dependent (NIDDM or type II) (HCC) Expected: 03/23/2023, Expires: 05/23/2023 [facility] Work Phone: Comment on above: Expected: 03/23/2023, Expires: 3 Start: 11-14-2022 ADVANCE DIRECTIVE DISCUSSION ADVANCE DIRECTIVE DISCUSSION [facility] Start: 11-14-2022 DEPRESSION ASSESSMENT DEPRESSION ASSESSMENT [facility] Start: 10-27-2022 Hemoglobin A1c/Hemoglobin.total in Blood HBA1C [facility] Start: 10-15-2022 3 comp foot exam completed DIABETIC FOOT EXAM [facility] Start: 10-15-2022 SHINGRIX VACCINE (2 of 3) SHINGRIX VACCINE (2 of 3) [facility] Comment on above: Postponed from 03/19/2015 (Declined at t his time) Start: 10-15-2022 Urine microalbumin profile DTAP,TDAP,TD (1 - Tdap) [facility] Comment on above: Postponed from 1954 (Declined at t his time) Start: 10-12-2022 Hepatitis B screening URINE ALBUMIN:CREATININE RATIO [facility] Start: 10-12-2022 Hepatitis B surface antibody level LDL CHOLESTEROL [facility] Start: 10-08-2022 End: 12-08-2022 ALBUMIN/CREAT RATIO RND UR ALBUMIN/CREAT RATIO RND UR Lab Routine Diabetes mellitus, non-insulin dependent (NIDDM or type II) (HCC) Hypertensive kidney disease with stage 3b chronic kidney disease (HCC) Expected: 10/08/2022, Expires: 12/08/2022 [facility] Work Phone: Comment on above: Expected: 10/08/2022, Expires: 3 Start: 10-08-2022 End: 12-08-2022 Basic metabolic 2000 panel - Serum or Plasma BASIC METABOLIC PNL Lab Routine Diabetes mellitus, non-insulin dependent (NIDDM or type II) (HCC) CKD stage 3 due to type 2 diabetes mellitus (HCC) Essential hypertension Hypertensive kidney disease with stage 3b chronic kidney disease (HCC) Expected: 10/08/2022, Expires: 12/08/2022 [facility] Work Phone: Comment on above: Expected: 10/08/2022, Expires: 3 Start: 10-08-2022 End: 12-08-2022 Hemoglobin A1c in Blood HGB A1C Lab Routine Diabetes mellitus, non-insulin dependent (NIDDM or type II) (HCC) Expected: 10/08/2022, Expires: 12/08/2022 [facility] Work Phone: Comment on above: Expected: 10/08/2022, Expires: 3 Start: 10-08-2022 End: 12-08-2022 LIPID PANEL, NONFASTING LIPID PANEL, NONFASTING Lab Routine Diabetes mellitus, non-insulin dependent (NIDDM or type II) (HCC) Hyperlipidemia associated with type 2 diabetes mellitus (HCC) Expected: 10/08/2022, Expires: 12/08/2022 [facility] Work Phone: Comment on above: Expected: 10/08/2022, Expires: 3 Start: 09-24-2022 Hemoglobin A1c/Hemoglobin.total in Blood HBA1C [facility] Start: 07-26-2022 End: 09-25-2022 CBC panel - Blood by Automated count CBC Lab Routine Iron deficiency anemia, unspecified iron deficiency anemia type CKD stage 3 due to type 2 diabetes mellitus (HCC) Expected: 07/26/2022, Expires: 09/25/2022 [facility] Work Phone: Comment on above: Expected: 07/26/2022, Expires: 2 Start: 07-26-2022 End: 09-25-2022 Ferritin [Mass/volume] in Serum or Plasma FERRITIN BLD Lab Routine Iron deficiency anemia, unspecified iron deficiency anemia type Expected: 07/26/2022, Expires: 09/25/2022 [facility] Work Phone: Comment on above: Expected: 07/26/2022, Expires: 2 Start: 07-26-2022 End: 09-25-2022 Iron and Iron binding capacity panel - Serum or Plasma IRON + TIBC Lab Routine Iron deficiency anemia, unspecified iron deficiency anemia type Expected: 07/26/2022, Expires: 09/25/2022 [facility] Work Phone: Comment on above: Expected: 07/26/2022, Expires: 2 Start: 07-15-2022 Influenza vaccination [facility] Start: 04-26-2022 End: 06-26-2022 CBC panel - Blood by Automated count CBC Lab Routine Iron deficiency anemia, unspecified iron deficiency anemia type Expected: 04/26/2022, Expires: 06/26/2022 [facility] Work Phone: Comment on above: Expected: 04/26/2022, Expires: 2 Start: 04-26-2022 End: 06-26-2022 RETIC COUNT RETIC COUNT Lab Routine Iron deficiency anemia, unspecified iron deficiency anemia type Expected: 04/26/2022, Expires: 06/26/2022 [facility] Work Phone: Comment on above: Expected: 04/26/2022, Expires: 2 Start: 04-12-2022 End: 06-12-2022 Bacteria identified in Urine by Culture URINE CULTURE Microbiology Routine Acute cystitis without hematuria Expected: 04/12/2022, Expires: 06/12/2022 [facility] Work Phone: Comment on above: Expected: 04/12/2022, Expires: 2 Start: 04-12-2022 End: 06-12-2022 URINALYSIS, DIPSTICK ONLY URINALYSIS, DIPSTICK ONLY Lab Routine Acute cystitis without hematuria Expected: 04/12/2022, Expires: 06/12/2022 [facility] Work Phone: Comment on above: Expected: 04/12/2022, Expires: 2 Start: 04-11-2022 Hemoglobin A1c/Hemoglobin.total in Blood HBA1C [facility] Start: 11-14-2021 ADVANCE DIRECTIVE DISCUSSION ADVANCE DIRECTIVE DISCUSSION [facility] Start: 11-14-2021 DEPRESSION ASSESSMENT DEPRESSION ASSESSMENT [facility] Start: 12-07-2018 Glaucoma screening Dilated Retinal Exam [facility] Start: 12-07-2018 Hepatitis C antibody, confirmatory test DILATED RETINAL EXAM [facility] Start: 10-22-2016 PNEUMOCOCCAL: 65+ (2 - PPSV23 or PCV20) PNEUMOCOCCAL: 65+ (2 - PPSV23 or PCV20) [facility] Start: 03-19-2015 SHINGRIX VACCINE (2 of 3) SHINGRIX VACCINE (2 of 3) [facility] Start: 06-14-2013 Colonoscopy COLONOSCOPY [facility] Start: 06-14-2013 Screening for malignant neoplasm of colon Colonoscopy [facility] Start: 06-15-2012 COLORECTAL CANCER SCREENING COLORECTAL CANCER SCREENING [facility] Start: 06-15-2012 Screening for malignant neoplasm of colon Colorectal Cancer Screening [facility] Start: 2010 RSV Vaccine (1 - 1-dose 75+ series) RSV Vaccine (1 - 1-dose 75+ series) [facility] Start: 1995 Hepatitis B Vaccine (1 of 3 - Risk 3-dose series) Hepatitis B Vaccine (1 of 3 - Risk 3-dose series) [facility] Start: 1995 RSV Vaccine (1 - 1-dose 60+ series) RSV Vaccine (1 - 1-dose 60+ series) [facility] Start: 1980 COLOGUARD (FIT-DNA) COLOGUARD (FIT-DNA) [facility] Start: [address] COLONOGRAPHY [facility] Start: 1980 FECAL OCCULT BLOOD FECAL OCCULT BLOOD [facility] Start: 1980 Screening for malignant neoplasm of colon [facility] Start: 1980 SIGMOIDOSCOPY SIGMOIDOSCOPY [facility] Start: 1954 Urine microalbumin profile [facility] Start: 1953 Anxiety Screening Anxiety Screening [facility] Start: 1953 Depression Screening Depression Screening [facility] Start: 1940 COVID-19 VACCINE (#1) COVID-19 VACCINE (#1) [facility] Start: 1940 COVID-19 VACCINE (1) COVID-19 VACCINE (1) [facility] Start: 06-30-1936 COVID-19 VACCINE (#1) COVID-19 VACCINE (#1) [facility] COLOGUARD COLOGUARD Lab Ro utine Screening for colon cancer Ordered: 04/08/2022 [facility] Work Phone: Comment on above: Ordered: 04/08/2022 End: 12-01-2025 MR Ankle - right WO contrast MRI ANKLE WO IVCON RIGHT Radiology Routine Chronic pain of right ankle 1 Occurrences starting 11/01/2024 until 12/01/2025 [facility] Comment on above: 1 Occurrences starting 11/01/2024 until 12/01/2025 End: 09-17-2024 XR Ankle - right AP and Lateral and oblique [facility] Work Phone: Comment on above: 1 Occurrences starting 09/17/2024 until 09/17/2024 End: 12-01-2025 XR Ankle - right AP and Lateral and oblique XR ANKLE GENERAL 3V AP/LAT/OBL RIGHT Radiology Routine Right ankle swelling 1 Occurrences starting 11/01/2024 until 12/01/2025 [facility] Work Phone: Comment on above: 1 Occurrences starting 11/01/2024 until 12/01/2025 XR Ankle - right AP and Lateral and oblique XR ANKLE GENERAL 3V AP/LAT/OBL RIGHT Radiology Routine Right ankle swelling 11/01/2024 2:21 PM EST [facility] XR Calcaneus - right 2 Views XR CALCANEUS 2V AXIAL/LAT RIGHT Radiology Routine Pain in joint involving right ankle and foot 09/19/2024 2:13 PM [facility] XR Foot - right AP a nd Lateral and oblique XR FOOT GENERAL 3V AP/LAT/OBL RIGHT Radiology Routine Pain in joint involving right ankle and foot 09/19/2024 2:13 PM [facility] Work Phone: End: 12-01-2025 XR Foot - right AP and Lateral and oblique XR FOOT GENERAL 3V AP/LAT/OBL RIGHT Radiology Routine Right ankle swelling 1 Occurrences starting 11/01/2024 until 12/01/2025 [facility] Comment on above: 1 Occurrences starting 11/01/2024 until 12/01/2025 XR Foot - right AP a nd Lateral and oblique XR FOOT GENERAL 3V AP/LAT/OBL RIGHT Radiology Routine Right ankle swelling 11/01/2024 2:21 PM [facility] Immunizations Immunization Date Immunization Notes Care Provider [facility] 12-07-2017 influenza virus vacc ine, unspecified formulation Migdalia Cramer MD Work Phone: [facility] 12-01-2016 influenza, high dose seasonal, preservative-free Migdalia Cramer MD Work Phone: [facility] 10-22-2015 pneumococcal conjuga te vaccine, 13 valent Migdalia Cramer MD Work Phone: [facility] Work Phone: 08-15-2015 influenza, high dose seasonal, preservative-free Migdalia Cramer MD Work Phone: [facility] 01-22-2015 zoster vaccine, live Migdalia alfonso MD Work Phone: [facility] 09-18-2014 influenza, seasonal, injectable Migdalia Cramer MD Work Phone: [facility] Work Phone: 09-04-2013 influenza virus vacc ine, unspecified formulation Migdalia Cramer MD Work Phone: [facility] 08-23-2012 influenza virus vacc ine, unspecified formulation Migdalia Cramer MD Work Phone: [facility] Work Phone: 11-22-2011 pneumococcal polysaccharide vaccine, 23 valent Migdalia Cramer MD Work Phone: [facility] 09-15-2011 influenza virus vacc ine, unspecified formulation Migdalia Cramer MD Work Phone: [facility] 09-03-2010 influenza virus vacc ine, unspecified formulation Migdalia Cramer MD Work Phone: [facility] Payers Date Payer Category Payer Self-pay 2020 Medicare UHC MEDICARE UHC MEDICARE ADVANTAGE PPO [id number] 2020-Present [phone] [address] [address] [place] [address] PPO [id number] 2020 Medicare UHC MEDICARE UHC MEDICARE ADVANTAGE PPO [id number] 2020-Present [phone] [address] [address] [place] [address] PPO [id number] 2020 Medicare (Managed Care) [facility] CARE ADVANTAGE PPO [id number] 2020 Medicare [id number] Unknown [id number] Unknown [id number] Unknown [id number] Unknown [id number] Unknown [id number] Unknown [id number] Unknown [id number] Social History Date Type Detail Facility Start: 09-16-2011 End: 10-23-2022 Tobacco smoking status DCIS Never smoked tobacco [facility] Start: 10-15-2021 End: 02-13-2025 Alcohol intake Current non-drinker of alcohol (finding) [facility] Start: 09-10-2020 End: 03-08-2023 History SDOH Alcohol Frequency 1 [facility] Start: 09-10-2020 End: 09-16-2020 History SDOH Social Connections Phone 5 [facility] Start: 09-10-2020 End: 09-16-2020 History SDOH Social Connections Get Together 2 [facility] Start: 09-10-2020 History SDOH Social Connections [facility] Start: 09-10-2020 History SDOH Social Connections Living 4 [facility] Start: 1935 Sex Assigned At Not on file [facility] Start: 11-09-2021 End: 12-09-2021 Exposure to SARS-CoV-2 (event) Unable to assess [facility] Start: 06-14-2021 End: 05-08-2022 Exposure to SARS-CoV-2 (event) Not sure [facility] Start: 09-16-2011 End: 10-23-2022 Tobacco use and exposure Smokeless tobacco non-user [facility] Start: 09-09-2020 End: 03-17-2023 History of Social function [facility] Start: 09-09-2020 End: 03-17-2023 Social connection and isolation panel [facility] Do you belong to any clubs or organizations such as adventism groups, unions, fraternal or athletic groups, or school groups? Yes [facility] Are you now , , , , never or living with a partner? [facility] How often to you hav e a drink containing alcohol? Never [facility] Average Number of Drinks Not on file [facility] Work Phone: Do you feel stress - tense, restless, nervous, or anxious, or unable to sleep at night because your mind is troubled all the time - these days [OSQ] Only a little [facility] (I/We) worried otf er (my/our) food would run out before (I/we) got money to buy more. Never true [facility] Work Phone: In the past 12 month s, was there a time when you were not able to pay the mortgage or rent on time? No [facility] Tobacco smoking stat [facility] Unknown if ever smoked [facility] Work Phone: Start: 02-14-2025 End: 02-21-2025 Sex Female (finding) [facility] Start: 1935 Sex Assigned At Female [facility] Medical Equipment Procedure Code Equipment Code Equipment Origin al Text Equipment Identifier Dates [id number], [id number], [id number] Start: 2019 End: 08-21-2024 Comment on above: USE DIRECTED TO T EST BLOOD SUGARS 3 TIMES A DAY Test blood sugar onc e daily Functional Status Date Assessment Result Facility 12-12-2024 Are you deaf, or do you have serious difficulty hearing No 12/12/2024 1:12 PM Petrona Arreguin RN No [facility] 12-12-2024 Are you blind, or do you have serious difficulty seeing, even when wearing glasses No 12/12/2024 1:12 PM Petrona Arreguin, LIT No [facility] 12-12-2024 Do you have serious difficulty walking or climbing stairs No 12/12/2024 1:12 PM Petrona Arreguin, LIT No [facility] 12-12-2024 Do you have difficul ty dressing or bathing No 12/12/2024 1:12 PM Petrona Arreguin RN No [facility] 12-12-2024 Because of a physica l, mental, or emotional condition, do you have difficulty doing errands alone such as visiting a physician's office or shopping No 12/12/2024 1:12 PM Petrona Arreguin RN No [facility] 03-09-2023 Are you deaf, or do you have serious difficulty hearing Yes 03/09/2023 4:15 PM Shannon Kraus RN Yes [facility] 03-09-2023 Are you blind, or do you have serious difficulty seeing, even when wearing glasses No 03/09/2023 4:15 PM Shannon Kraus RN No [facility] 03-09-2023 Do you have serious difficulty walking or climbing stairs Yes 03/09/2023 4:15 PM Shannon Kraus RN Yes [facility] 03-09-2023 Do you have difficul ty dressing or bathing Yes 03/09/2023 4:15 PM Shannon Kraus RN Yes [facility] 03-09-2023 Because of a physica l, mental, or emotional condition, do you have difficulty doing errands alone such as visiting a physician's office or shopping Yes 03/09/2023 4:15 PM Shannon Kraus RN Yes [facility] Mental Status Date Assessment Result Facility 12-12-2024 Because of a physica l, mental, or emotional condition, do you have serious difficulty concentrating, remembering, or making decisions No 12/12/2024 1:12 PM Petrona Arreguin, LIT No [facility] 03-09-2023 Because of a physica l, mental, or emotional condition, do you have serious difficulty concentrating, remembering, or making decisions Yes 03/09/2023 4:15 PM EDT Shannon Stringer, LIT Yes [facility] Clinical Notes 05-25-2017 to 02-14-2025 Lien Bang DPM - 02/14/2025 9:04 AM Margie Luo RN - 02/13/2025 1:28 PM EDTPatient InstructionsTelephone Encounter - Lidia Carbajal LPN - 02/11/2025 12:58 PM EDTPatient Instructions Note Date & Type Note Facility 02-14-2025 Note [facility] 02-14-2025 History of Present illness Narrative Date of Visit: 02/13/2025 CHIEF COMPLAINT: Right ankle wound and RT heel pressure check SP OR right ankle incision and drainage and ulcer debridement 11/27/24 DM II, HgbA1c 10.4 (11/21/24) ADM 11/21/24-12/12/24 HISTORY OF PRESENT ILLNESS: Patient presents to the wound center for follow up since admission to [facility] 11/21/24 where she underwent RT ankle I&D on 11/27/24, no bone biopsy was obtained, and wound vac applied. she saw ID and is cleared off of antibiotics now. She saw rheumatology and they are working her up for psuedogout. She is doing well with minimal pain and she thinks wound is healed today. She was DC to SNF and has picc line and has follow up with ID scheduled. She has been getting wound vac applications to right ankle. On admission she was also having Left foot pain, GI issues, and abnormal labs and had a rheumatology follow up on 01/02/25. She is getting PT, but mostly non ambulatory currently at snf. Denies N/V/F/C/D/SOB/CP/LP HX S/p RT ankle I&D (DOS: 11/27/24) SOCIAL HISTORY: Smoking Status: Never smoker PHYSICAL EXAMINATION: Vascular Exam: BL Foot DP / PT pulses +2/4. CFT less than 3 seconds to digits, skin temp warm to warm from proximal to distal BL Foot Dermatologic Exam: RT ankle lateral ankle ulcer with partial thickness wound measures 0.1 x 0.1 x 0.1cm and post debridement measures 0.2x0.2x0.2cm with scabbing pre debridement and normal post operative edema and erythema, no drainage, no signs of infection, no probe to bone, no malodor, into level of SUBCUTANEOUS TISSUE. LT foot no open wounds or fluctuance. Neurologic Exam: Comments/Other Findings: BL light touch sensation largely intact. Orthopedic Exam: Additional Orthopedic Findings: BL 5/5 muscle strength for all pedal muscle groups in dorsiflexion, plantarflexion, inversion, and eversion. HT noted 2-4 BL. LT foot/ankle without any pain on palpation today. No wounds or ecchymosis or edema noted DIAGNOSIS: Pressure ulcer of right ankle, stage 3 Right ankle pain Diabetic autonomic neuropathy associated with type 2 diabetes mellitus Cutaneous abscess of right ankle Left foot pain Pressure injury of right heel, stage 1 Skin ulcer of right ankle, limited to breakdown of skin PLAN AND TREATMENT: ASSESMENT & PLAN BL Foot and Ankle and Lower extremity Exam and Evaluation carried out with a treatment plan reviewed with the patient and findings discussed with patient including alternatives, benefits, complications and risks. TESTS / IMAGING / X-RAY EXAM/LABS CRP: 20.0 11/21/24 HbA1c 10.4 11/21/24 albumin: 3.7 11/22/24 RT ankle lateral ankle wound first seen by podiatry. Patient states that her wound has been present for 2 days per daughter. Wound measures are: 1.0 x 1.0 x 0.6 cm into level of FAT/FASCIA. 11/21/24 RT lateral ankle wound culture: staph aureus 11/21/24 RT ankle XR: no signs of OM 11/19/24 RT ankle MRI: Nonspecific circumferential subcutaneous/soft tissue edema involving the distal leg and ankle. 11/22/24 PVR: ERIN RT ERIN 0.97, LT ERIN 1.01 11/22/24 RT lateral ankle wound culture: staph aureus 11/27/24 RT lateral ankle post lavage wound culture: staph aureus 12/01/24 left foot and ankle MRI: lateral soft tissue wound at the ankle, no evidence of soft tissue abscess or OM. PREVOIUSLY FOR LEFT FOOT PAIN: No open wounds. No fluctuance. Pain was very diffuse without specific point of reproducibility. No erythema. Therefore; no concern of infection to the LEFT foot/ankle at this time. MRI obtained by medicine noted to have findings out lateral soft tissue wound at the ankle. However; clinically there are no open wounds and no history of wounds. Discussed findings further with Radiologist Dr. Fernando- findings may be secondary to thin skin and subcutaneous edema which is consistent with clinical picture. Previously discussed. She relates to minimal left foot pain today TODAY FOR RIGHT ANKLE WOUND: Previously PVR results noted above and discussed with patient and patients daughter. No vascular consult needed at this time Periosteum appeared healthy intra-op, didn't get bone biopsy to prevent seeding infection. Patient completed wound vac therapy RIGHT ankle ulcer treated with SELECTIVE debridement carried out of the wound with non selective sharp excisional debridement past the dermis into SUBCUTANEOUS level with use of curette and 15 scalpel blade. Devitalized tissue removed. We then flushed out the wound with sterile saline. Patient tolerated debridement without numbing agent. Wound measurements are noted in the objective section. Pt saw rheumatology 01/02/25 and currently working her up for psuedogout Pt saw ID on 01/08/25 and cleared and off of antibiotics wound is near healed today I recommend to continue to pad and protect with excel SAP for one more month and continue tubigrip BL LE for edema, change pad every other day. She is at SNF can WB AT BL continue offloading right heel, no signs pressure injury today I recommend nail care at facility or she is welcome at our office for this we discussed back as needed for wound Pressure ulcer of right ankle, stage 3 707.06 L89.513 Diagnosis Notes Drag & Drop to change diagnosis order Right ankle pain 719.47 M25.571 Diagnosis Notes Drag & Drop to change diagnosis order Diabetic autonomic neuropathy associated with type 2 diabetes mellitus 250.60 E11.43 Diagnosis Notes Drag & Drop to change diagnosis order Cutaneous abscess of right ankle 682.6 L02.415 Diagnosis Notes Drag & Drop to change diagnosis order Left foot pain 729.5 M79.672 Diagnosis Notes Drag & Drop to change diagnosis order Pressure injury of right heel, stage 1 707.07 L89.611 Diagnosis Notes Drag & Drop to change diagnosis order Skin ulcer of right ankle, limited to breakdown of skin 707.13 L97.311 Nursing Documentation Pertinent Medical History: Type II DM, HTN, CKD, HLD, & GERD Wound Etiology according to patient: 3 months ago a bruise on Right ankle from a fall, seemed to reddened, xrays completed. Split applied and unsuccessful, became inflamed and infected. Patient arrived via: Arrived via wheelchair, accompanied by family members Home Care Company/Nursing Facility:[facility] Consent captured for debridement per Lien Bang DPM and alex until July 2025 Anticoagulant Therapy: N/A Living Situation (ie... 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 Provider seeing patient: Lien Bang DPM & Pierce Chi MD __ WOUND ASSESSMENT: Refer to Provider's Wound Assessment Note VASCULAR ASSESSMENT BY PROVIDER: N/A CHF History: No Smoking: Non-smoker Education: N/A EDEMA: Right foot: 4+ Right calf: general Left foot: N/A Left Calf: N/A MEASUREMENTS: in CM Right Calf: 28.0 Right Ankle: 18.5 Left Calf: N/A Left Ankle: N/A Length: 45.0 WOUND PHOTOGRAPHY: date taken 02/13/2025 DEBRIDEMENT PROCEDURE BY PROVIDER: Anesthetic Used: Wound # 1 Other procedure: N/A Specimen collected: N/A WOUND TREATMENT PER MD ORDER: Discontinue wound vac 01/16/2025 Wounds cleansed by mechanical debridement to allow provider to visualize wound base WOUND # 1 - LOCATION: Right Lateral Ankle - (September 2024) L: 0.2 cm x W: 0.2 cm x D: cm scabbed on arrival Cleansed with: Vashe Applied to laura-wound skin: skin prep Applied to wound bed: vaseline Covered and secured with: 4x4 [place] SAP COMPRESSION: Single layer tubi-research phlebotomist size D to the bilateral lower legs DME: Facility SPECIAL NEEDS: Coordination of care faxed instructions to [facility] Emotional support N/A OR set-up N/A Logging Contractor N/A Incontinence needs N/A DISCHARGED in stable condition to: Arrived via wheelchair accompanied by family & aide PLAN/ORDERS: - Return to the [facility] for a follow-up with duplicating machine mechanic Dr. Bang in 2 weeks - Continue aggressive nutritional support to assist in wound healing, focusing heavily on increasing protein intake. Try to get about 100 g of protein per day to promote wound healing. Look into supplementing your meals with protein shakes. Do NOT skip meals! - If you have any questions or concerns that cannot be answered with the following information, please follow the instructions listed above on how to contact the wound center. Please encourage the patient to elevate her legs while sitting in a chair Have podiatry perform regular nail care and foot check EDUCATION: The patient/family was instructed how to cleanse the wound(s). Visual demonstration on how to apply the dressing with teach back method. Signs & symptoms of infection were reviewed: Increased redness, swelling, pain, green/yellow drainage, fever and/or chills would all need to be evaluated by a Physician. Patient received typed home-going wound care instructions and has expressed intent to comply. Education performed regarding lymphedema/edema: Elevation of extremity above the heart for 30 minutes three times daily and as needed Exercise such as writing the ABC's with your toes in the air, walking and/or calf pumps Wearing compression as ordered by provider Diet controlling of sodium as instructed by provider Use of medication to help control edema. UNIVERSAL PROTOCOL / SAFETY CHECKLIST Procedure to be Performed: Sharp serial debridement of the right lateral ankle Sign In: 1354 A Moment of CARE was completed. Appropriate PPE (Personal Protective Equipment) worn by all providers involved with the procedure. Special equipment utilized curette . Patient/Surrogate Stated/Verified: Patient name, Date of , Relevant allergies, and The intended procedure Time Out: 1358 Relevant labs, photos, and/or imaging studies have been reviewed. Intended patient and procedure match the source document(s) (e.g. consent, H&P, associated studies [imaging, pathology]) match the intended patient and procedure. Consent obtained and matches the intended procedure. Yes. Correct side/site has been marked and visible. Medications required for this procedure are verified. Fire risk assessed and is not applicable. Implants: are not applicable. Sign Out: 1400 Specimens not collected. All instruments, equipment, possible retained foreign bodies are accounted for. Yes. The post-procedure plan of care has been communicated to the patient or surrogate. Current HBOT Status: Active or Complete - see screening below WOUND CENTER HYPERBARIC OXYGEN THERAPY SCREENING 1. Is the patient diabetic? (If No, skip to question 5) Yes 2. Does the patient have a lower extremity wound? Yes 3. Is there exposed/involved tendon or bone? Yes 4. Has the wound been present for 30 days? Yes If Yes to ALL questions above, consult the Hyperbaric Center 5. Has the patient been diagnosed with osteomyelitis? No 6. Has the patient had a previous skin graft or flap at the wound? No 7. Has the patient had or been offered vascular intervention/evaluation? No 8. Does the patient have a wound at an amputation site? No 9. Has the patient had radiation therapy at the site of the problem? No If Yes to ANY of questions 5-9, consult the Hyperbaric Center documented in this encounter [facility] 02-13-2025 Instructions Margie Steiner RN - 02/13/2025 1:29 PM EDT WOUND CARE INSTRUCTIONS- Yusuf Medina Wound location: Right Ankle APOSTOLIC MU-ISM HOME: - Wound Care Instructions: - Gather supplies - Place down a clean work surface such as new paper towel or newly cleaned towel - Clean all metal instruments with rubbing alcohol before and after each use. - Plastic garbage bag for old dressing - Wash your hands with soap and water before and after wound care. Apply vaseline to the wound area Cover with a gauze dressing or 4x4 excel sap Change dressing every other day for 1 additional month then stop Apply tubi-research phlebotomist D to bilateral lower legs Apply a Single layer tubi-research phlebotomist compression stocking to the right foot base of the toes to 1 below the back of the knee. Please wear continuously throughout the day. You may remove at bedtime, but they must be re-applied first thing in the morning in order to avoid gravity negatively impacting your swelling. These wraps may be machine washed in cold water, but must be hung to dry (do NOT put in the dryer, as this can damage the elastic). They are typically usable for about 2-3 weeks, then they will need to be disposed of and replaced due to being worn out. Please remove if they become painful, or if she loses feeling in her feet. Also pay attention to any color changes in the foot and leg that could be due to loss of circulation. Regarding lymphedema/edema: Elevation of extremity above the heart for 30 minutes three times daily and as needed Exercise such as writing the ABC's with your toes in the air, walking and/or calf pumps Wearing compression as ordered by provider Diet controlling of sodium as instructed by provider Use of medication to help control edema. To give your wound the best chance to heal: - Eat three balanced meals daily focusing on the protein - Control swelling by elevating the extremity above your heart - exercise the extremity - Control your blood sugar. Keep blood sugar less than 200 - Complete your wound care instructions - Vitamin C 500 mg twice daily - Multiple Vitamin Daily - Drink a protein shake daily - Smoking decreases the amount of oxygen delivered to tissue and can impair wound healing and/or increased risk of infection Report any of the following changes to the Wound Center at [phone] or go to the Emergency Department: Fever or chills Increased drainage Green or yellow drainage Foul odor Increased pain Hardness around the wound Redness, warmth or swelling of the surrounding tissue Color change to the wound When contacting the wound center at the ([phone]): Leave a message that includes your full name, birthday, phone number who your provider is and the reason for your call. During clinic hours we are with patients. A nurse will return your call within 24-48 hours in the order it was received. The wound center is closed weekends and on major holidays. If you call at that time we will return your call in the order that the calls were received at the soonest opportunity. If you have any signs of infection or need immediate attention then please go to the emergency department to be evaluated Thank you for your understanding and cooperation. If you are feeling ill, please call to reschedule your appointment. If you believe your illness to be wound related, call and leave a message using the directions above describing your symptoms. If you cannot wait 24-48 hrs for a callback, please get evaluated in the nearest emergency department. PLAN/ORDERS: - Return to the [facility] for a follow-up with duplicating machine mechanic Dr. Bang in 2 weeks - Continue aggressive nutritional support to assist in wound healing, focusing heavily on increasing protein intake. Try to get about 100 g of protein per day to promote wound healing. Look into supplementing your meals with protein shakes. Do NOT skip meals! - If you have any questions or concerns that cannot be answered with the following information, please follow the instructions listed above on how to contact the wound center. Please encourage the patient to elevate her legs while sitting in a chair Have podiatry perform regular nail care and foot check Lien Bang DPM/osvaldo/fhvimal documented in this encounter [facility] 02-13-2025 Note [facility] 02-11-2025 Telephone encounter Note Received results of labs done on 02/04/2025 from [facility] (abnormal results in bold): sed rate 23 0-30 Report sent for scanning. [facility] 02-11-2025 Miscellaneous Notes Received results of labs done on 02/04/2025 from [facility] (abnormal results in bold): sed rate 23 0-30 Report sent for scanning. documented in this encounter [facility] 01-18-2025 Telephone encounter Note Noted Willie Kaur APRN.CNP [facility] 01-18-2025 Miscellaneous Notes Noted Willie Kaur APRN.CNP Contacted [facility] spoke with Gabbie (nurse), I asked to clarify patient's medication or send updated med list. She states We don't need anything from you She's living here permanently & uses primary care in-house doc. No further information was given or obtained. Chart indicates that she is at [facility], phone number on a fax recently received indicates the SNF is [phone]. Please call the facility that she is at to verify which cholesterol medicine she is taking since caregiver Demetria is not currently in chare of medication administration and can't clarify pravachol vs lipitor. Thank you. Willie Kaur APRN.CNP/ Relative Demetria states the patient is in a assisted now, so she needs someone to reach out to her because she states they are giving her different medications at the assisted. Please reach out to her at [phone] Attempted to contact relative Demetria with no success. Left VM requesting call back. If relative returns call, please clarify prescription. Images from the original note were not included. Pended med is Pravastatin (Pravachol). Epic med list indicates atorvastatin (Lipitor). Please clarify which patient is taking. Willie Kaur APRN.CNP Patient has been identified by name and date of : Yes Last office visit in this department: 10/29/2024 No FOV scheduled RX INSTRUCTIONS: Patient aware RX will be sent to pharmacy. No need to notify patient. Patient phones requesting refills as follows: Requested Prescriptions Pending Prescriptions Disp Refills pravastatin (PRAVACHOL) 20 mg tablet [Pharmacy Med Name: Pravastatin Sodium 20 MG Oral Tablet] 90 tablet 3 Sig: TAKE 1 TABLET BY MOUTH ONCE DAILY Please review and advise. Jame Hernandez MA documented in this encounter [facility] 01-18-2025 Telephone encounter Note Contacted [facility] spoke with Gabbie (nurse), I asked to clarify patient's medication or send updated med list. She states We don't need anything from you She's living here permanently & uses primary care in-house doc. No further information was given or obtained. [facility] 01-18-2025 Telephone encounter Note Chart indicates that she is at [facility], phone number on a fax recently received indicates the SNF is [phone]. Please call the facility that she is at to verify which cholesterol medicine she is taking since caregiver Demetria is not currently in chare of medication administration and can't clarify pravachol vs lipitor. Thank you. Willie Kaur APRN.[employer]/ [facility] 01-17-2025 Telephone encounter Note Relative Demetria states the patient is in a assisted now, so she needs someone to reach out to her because she states they are giving her different medications at the assisted. Please reach out to her at [phone] [facility] 01-17-2025 Telephone encounter Note Attempted to contact celeste Augustin with no success. Left VM requesting call back. If relative returns call, please clarify prescription. [facility] 01-17-2025 Note [facility] 01-17-2025 History of Present illness Narrative Date of Visit: 01/16/2025 CHIEF COMPLAINT: Right ankle wound and RT heel pressure check SP OR right ankle incision and drainage and ulcer debridement 11/27/24 DM II, HgbA1c 10.4 (11/21/24) ADM 11/21/24-12/12/24 HISTORY OF PRESENT ILLNESS: Patient presents to the wound center for follow up since admission to [facility] 11/21/24 where she underwent RT ankle I&D on 11/27/24, no bone biopsy was obtained, and wound vac applied. she saw ID and is cleared off of antibiotics now. She saw rheumatology and they are working her up for psuedogout. She is doing well with minimal pain. She was DC to SNF and has picc line and has follow up with ID scheduled. She has been getting wound vac applications to right ankle. On admission she was also having Left foot pain, GI issues, and abnormal labs and had a rheumatology follow up on 01/02/25. She is getting PT, but mostly non ambulatory currently at snf. Denies N/V/F/C/D/SOB/CP/LP HX S/p RT ankle I&D (DOS: 11/27/24) SOCIAL HISTORY: Smoking Status: Never smoker PHYSICAL EXAMINATION: Vascular Exam: BL Foot DP / PT pulses +2/4. CFT less than 3 seconds to digits, skin temp warm to warm from proximal to distal BL Foot Dermatologic Exam: RT ankle lateral ankle ulcer with partial thickness wound measures 1.4 x 0.9 x 0.1cm and post debridement measures 1.4x0.8x0.2cm with 70:30 granular fibrotic base, no surrounding callus, normal post operative edema and erythema, appropriate drainage, no signs of infection, no probe to bone, no malodor, mild serosanguinous drainage into level of SUBCUTANEOUS TISSUE. mild laura wound maceration RT heel blanchable, no break in skink, AOC LT foot no open wounds or fluctuance. Neurologic Exam: Comments/Other Findings: BL light touch sensation largely intact. Orthopedic Exam: Additional Orthopedic Findings: BL 5/5 muscle strength for all pedal muscle groups in dorsiflexion, plantarflexion, inversion, and eversion. HT noted 2-4 BL. LT foot/ankle without any pain on palpation today. No wounds or ecchymosis or edema noted DIAGNOSIS: Pressure ulcer of right ankle, stage 3 Right ankle pain Diabetic autonomic neuropathy associated with type 2 diabetes mellitus Cutaneous abscess of right ankle Left foot pain Pressure injury of right heel, stage 1 Skin ulcer of right ankle, limited to breakdown of skin PLAN AND TREATMENT: ASSESMENT & PLAN BL Foot and Ankle and Lower extremity Exam and Evaluation carried out with a treatment plan reviewed with the patient and findings discussed with patient including alternatives, benefits, complications and risks. TESTS / IMAGING / X-RAY EXAM/LABS CRP: 20.0 11/21/24 HbA1c 10.4 11/21/24 albumin: 3.7 11/22/24 RT ankle lateral ankle wound first seen by podiatry. Patient states that her wound has been present for 2 days per daughter. Wound measures are: 1.0 x 1.0 x 0.6 cm into level of FAT/FASCIA. 11/21/24 RT lateral ankle wound culture: staph aureus 11/21/24 RT ankle XR: no signs of OM 11/19/24 RT ankle MRI: Nonspecific circumferential subcutaneous/soft tissue edema involving the distal leg and ankle. 11/22/24 PVR: ERIN RT ERIN 0.97, LT ERIN 1.01 11/22/24 RT lateral ankle wound culture: staph aureus 11/27/24 RT lateral ankle post lavage wound culture: staph aureus 12/01/24 left foot and ankle MRI: lateral soft tissue wound at the ankle, no evidence of soft tissue abscess or OM. PREVOIUSLY FOR LEFT FOOT PAIN: No open wounds. No fluctuance. Pain was very diffuse without specific point of reproducibility. No erythema. Therefore; no concern of infection to the LEFT foot/ankle at this time. MRI obtained by medicine noted to have findings out lateral soft tissue wound at the ankle. However; clinically there are no open wounds and no history of wounds. Discussed findings further with Radiologist Dr. Fernando- findings may be secondary to thin skin and subcutaneous edema which is consistent with clinical picture. Previously discussed. She relates to minimal left foot pain today TODAY FOR RIGHT ANKLE WOUND: Prevoiusly PVR results noted above and discussed with patient and patients daughter. No vascular consult needed at this time Periosteum appeared healthy intra-op, didn't get bone biopsy to prevent seeding infection. Patient tolerating wound vac negative pressure. To continue wound vac at ID. Removed vac dressing and debrided wound today. RIGHT ankle ulcer treated with excisional debridement carried out of the wound with non selective sharp excisional debridement past the dermis into SUBCUTANEOUS level with use of curette and 15 scalpel blade. Devitalized tissue removed. We then flushed out the wound with sterile saline. Patient tolerated debridement without numbing agent. Wound measurements are noted in the objective section. Pt saw rheumatology 01/02/25 and currently working her up for psuedogout Pt saw ID on 01/08/25 and cleared and off of antibiotics wound looks great today, no signs infection discontinue wound vac I recommend promogram brianne, then adaptic, alginate, laura wound gentian tiffanie then gauze abd kerlix and tubigrip every other day. She is at [facility] can WB AT continue offloading right heel, looks good today back in 2-3 weeks wound check and check the change to collagen Pressure ulcer of right ankle, stage 3 707.06 L89.513 Diagnosis Notes Drag & Drop to change diagnosis order Right ankle pain 719.47 M25.571 Diagnosis Notes Drag & Drop to change diagnosis order Diabetic autonomic neuropathy associated with type 2 diabetes mellitus 250.60 E11.43 Diagnosis Notes Drag & Drop to change diagnosis order Cutaneous abscess of right ankle 682.6 L02.415 Diagnosis Notes Drag & Drop to change diagnosis order Left foot pain 729.5 M79.672 Diagnosis Notes Drag & Drop to change diagnosis order Pressure injury of right heel, stage 1 707.07 L89.611 Diagnosis Notes Drag & Drop to change diagnosis order Skin ulcer of right ankle, limited to breakdown of skin 707.13 L97.311 Nursing Documentation Pertinent Medical History: Type II DM, HTN, CKD, HLD, & GERD Wound Etiology according to patient: 3 months ago a bruise on Right ankle from a fall, seemed to reddened, xrays completed. Split applied and unsuccessful, became inflamed and infected. Patient arrived via: Arrived via wheelchair, accompanied by family members Home Care Company/Nursing Facility:[facility] Consent captured for debridement per Lien Bang DPM and alex until July 2025 Anticoagulant Therapy: N/A Living Situation (ie... 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 Provider seeing patient: Lien Bang DPM & Pierce Chi MD __ WOUND ASSESSMENT: Refer to Provider's Wound Assessment Note VASCULAR ASSESSMENT BY PROVIDER: N/A CHF History: No Smoking: Non-smoker Education: N/A EDEMA: Right foot: 2+ Right calf: None Left foot: N/A Left Calf: N/A MEASUREMENTS: in CM Right Calf: 25.0 Right Ankle: 18.0 Left Calf: N/A Left Ankle: N/A Length: 45.0 WOUND PHOTOGRAPHY: Yes, date taken 01/16/2025 DEBRIDEMENT PROCEDURE BY PROVIDER: Anesthetic Used: 2% Lidocaine gel applied per Zee Hu RN Wound # 1 Other procedure: N/A Specimen collected: N/A WOUND TREATMENT PER MD ORDER: Wounds cleansed by mechanical debridement to allow provider to visualize wound base WOUND # 1 - LOCATION: Right Ankle - (September 2024) - 12/26/2023 sutures and wound vac present on arrival Post-Debridement Measurements: L: 1.4 cm x W: 0.8 cm x D: 0.2 cm Cleansed with: Vashe Applied to laura-wound skin: Gentian Tiffanie Applied to wound bed: Brianne, Adaptic & Calcium Alginate Covered and secured with: 4x4 Chacon SAP COMPRESSION: Single layer tubi-research phlebotomist size D to the right lower leg(s). DME: Facility SPECIAL NEEDS: Coordination of care N/A Emotional support N/A OR set-up N/A Logging Contractor N/A Incontinence needs N/A DISCHARGED in stable condition to: Arrived via wheelchair accompanied by family & aide PLAN/ORDERS: - Return to the [facility] for a follow-up with duplicating machine mechanic Dr. Bang in 2 weeks - Follow-up in the wound center to see infectious disease specialist Dr. Chi as needed. - Continue aggressive nutritional support to assist in wound healing, focusing heavily on increasing protein intake. Try to get about 100 g of protein per day to promote wound healing. Look into supplementing your meals with protein shakes. Do NOT skip meals! - If you have any questions or concerns that cannot be answered with the following information, please follow the instructions listed above on how to contact the wound center. EDUCATION: The patient/family was instructed how to cleanse the wound(s). Visual demonstration on how to apply the dressing with teach back method. Signs & symptoms of infection were reviewed: Increased redness, swelling, pain, green/yellow drainage, fever and/or chills would all need to be evaluated by a Physician. Patient received typed home-going wound care instructions and has expressed intent to comply. Education performed regarding lymphedema/edema: Elevation of extremity above the heart for 30 minutes three times daily and as needed Exercise such as writing the ABC's with your toes in the air, walking and/or calf pumps Wearing compression as ordered by provider Diet controlling of sodium as instructed by provider Use of medication to help control edema. UNIVERSAL PROTOCOL / SAFETY CHECKLIST Procedure to be Performed: Sharp Sign In: 1335 A Moment of CARE was completed. Appropriate PPE (Personal Protective Equipment) worn by all providers involved with the procedure. Special equipment utilized curette . Patient/Surrogate Stated/Verified: Patient name, Date of , Relevant allergies, and The intended procedure Time Out: Relevant labs, photos, and/or imaging studies have been reviewed. Intended patient and procedure match the source document(s) (e.g. consent, H&P, associated studies [imaging, pathology]) match the intended patient and procedure. Consent obtained and matches the intended procedure. Yes. Correct side/site has been marked and visible. Medications required for this procedure are verified. Fire risk assessed and is not applicable. Implants: are not applicable. Sign Out: 1340 Specimens not collected. All instruments, equipment, possible retained foreign bodies are accounted for. Yes. The post-procedure plan of care has been communicated to the patient or surrogate. Current HBOT Status: Active or Complete - see screening below WOUND CENTER HYPERBARIC OXYGEN THERAPY SCREENING 1. Is the patient diabetic? (If No, skip to question 5) Yes 2. Does the patient have a lower extremity wound? Yes 3. Is there exposed/involved tendon or bone? Yes 4. Has the wound been present for 30 days? Yes If Yes to ALL questions above, consult the Hyperbaric Center 5. Has the patient been diagnosed with osteomyelitis? No 6. Has the patient had a previous skin graft or flap at the wound? No 7. Has the patient had or been offered vascular intervention/evaluation? No 8. Does the patient have a wound at an amputation site? No 9. Has the patient had radiation therapy at the site of the problem? No If Yes to ANY of questions 5-9, consult the Hyperbaric Center Nanette Welch RN/fm documented in this encounter [facility] 01-17-2025 Telephone encounter Note Images from the original note were not included. Pended med is Pravastatin (Pravachol). Epic med list indicates atorvastatin (Lipitor). Please clarify which patient is taking. Willie Kaur APRN.[employer] [facility] 01-16-2025 Telephone encounter Note Patient has been identified by name and date of : Yes Last office visit in this department: 10/29/2024 No FOV scheduled RX INSTRUCTIONS: Patient aware RX will be sent to pharmacy. No need to notify patient. Patient phones requesting refills as follows: Requested Prescriptions Pending Prescriptions Disp Refills pravastatin (PRAVACHOL) 20 mg tablet [Pharmacy Med Name: Pravastatin Sodium 20 MG Oral Tablet] 90 tablet 3 Sig: TAKE 1 TABLET BY MOUTH ONCE DAILY Please review and advise. Jame Hernandez MA [facility] 01-16-2025 Instructions Nanette Welch RN - 01/16/2025 1:12 PM EST WOUND CARE INSTRUCTIONS- Yusuf Medina Wound location: Right Ankle [facility]: - Please re-apply wound VAC today (01/08/25) Discontinue wound vac 01/16/2025 Wound Care Instructions: - Gather supplies - Place down a clean work surface such as new paper towel or newly cleaned towel - Clean all metal instruments with rubbing alcohol before and after each use. - Plastic garbage bag for old dressing - Wash your hands with soap and water before and after wound care. - Apply a vashe' moistened 4x4 gauze soak for 5-10 minutes. Pat dry. - Apply Brianne (Collagen) to the wound bed. - Apply adaptic (screen like material) and calcium alginate (felt material) to the wound base. - Cover with 4x4 Chacon SAP bordered foam or equivalent dressing. - Change your dressing every other day or as needed to maintain a clean, dry and intact dressing. Apply a Single layer tubi-research phlebotomist compression stocking to the right foot base of the toes to 1 below the back of the knee. Please wear continuously throughout the day. You may remove at bedtime, but they must be re-applied first thing in the morning in order to avoid gravity negatively impacting your swelling. These wraps may be machine washed in cold water, but must be hung to dry (do NOT put in the dryer, as this can damage the elastic). They are typically usable for about 2-3 weeks, then they will need to be disposed of and replaced due to being worn out. Please remove if they become painful, or if she loses feeling in her feet. Also pay attention to any color changes in the foot and leg that could be due to loss of circulation. Regarding lymphedema/edema: Elevation of extremity above the heart for 30 minutes three times daily and as needed Exercise such as writing the ABC's with your toes in the air, walking and/or calf pumps Wearing compression as ordered by provider Diet controlling of sodium as instructed by provider Use of medication to help control edema. To give your wound the best chance to heal: - Eat three balanced meals daily focusing on the protein - Control swelling by elevating the extremity above your heart - exercise the extremity - Control your blood sugar. Keep blood sugar less than 200 - Complete your wound care instructions - Vitamin C 500 mg twice daily - Multiple Vitamin Daily - Drink a protein shake daily - Smoking decreases the amount of oxygen delivered to tissue and can impair wound healing and/or increased risk of infection Report any of the following changes to the Wound Center at [phone] or go to the Emergency Department: Fever or chills Increased drainage Green or yellow drainage Foul odor Increased pain Hardness around the wound Redness, warmth or swelling of the surrounding tissue Color change to the wound When contacting the wound center at the ([phone]): Leave a message that includes your full name, birthday, phone number who your provider is and the reason for your call. During clinic hours we are with patients. A nurse will return your call within 24-48 hours in the order it was received. The wound center is closed weekends and on major holidays. If you call at that time we will return your call in the order that the calls were received at the soonest opportunity. If you have any signs of infection or need immediate attention then please go to the emergency department to be evaluated Thank you for your understanding and cooperation. If you are feeling ill, please call to reschedule your appointment. If you believe your illness to be wound related, call and leave a message using the directions above describing your symptoms. If you cannot wait 24-48 hrs for a callback, please get evaluated in the nearest emergency department. PLAN/ORDERS: - Return to the [facility] for a follow-up with duplicating machine mechanic Dr. Bang in 2 weeks - Follow-up in the wound center to see infectious disease specialist Dr. Chi as needed. - Continue aggressive nutritional support to assist in wound healing, focusing heavily on increasing protein intake. Try to get about 100 g of protein per day to promote wound healing. Look into supplementing your meals with protein shakes. Do NOT skip meals! - If you have any questions or concerns that cannot be answered with the following information, please follow the instructions listed above on how to contact the wound center. Lien Bang DPM /mh/fm documented in this encounter [facility] 01-16-2025 Note [facility] 01-08-2025 Telephone encounter Note Per Alon-- Labs rev [place] stop date today PICC removal in the SNF Follow up prn The notes went back to the ECF for them to remove the picc line after tonight's last dose [employer], called to see if the picc line can be removed. I called her back and left a VM that yes, Alon did give orders at today's appt to remove the picc line after the last dose. [facility] 01-08-2025 Miscellaneous Notes Per Alon-- Labs rev [place] stop date today PICC removal in the SNF Follow up prn The notes went back to the ECF for them to remove the picc line after tonight's last dose [facility] [employer], called to see if the picc line can be removed. I called her back and left a VM that yesAlon did give orders at today's appt to remove the picc line after the last dose. Yusuf has an appt today with Alon at [facility]. She's currently on Cefazolin 2g iv q8 with a stop date for today. Jan 07 labs reviewed, no changes The creat was never done The results were attached to the M drive Dec 31 labs reviewed, no changes The results were attached to the M drive Dec 24 labs reviewed, no changes The results were attached to the M drive Spoke to the nurse, Gabbie, naveen requested Feb 3 labs wnl The differential wasn't done on the cbc The GENERAL OFFICE WORKER has added it on moving forward The results were attached to the M drive Spoke to the GENERAL OFFICE WORKERnaveen requested Lilo from [facility] called [phone] to schedule the follow up, [facility] and 01/08 for the schedule date. Delfina Elias Yusuf is still inpt at [facility] She will be d/c to [facility] [phone] Summary: COPAT ACTION-FOR IDC USE ONLY Images from the original note were not included. 11/28/2024 8:48 PM Pierce Chi MA PROVIDER ADULT [id number] Patient Info Patient Name Sex Yusuf Medina ([id number]) Female 1935 Encounter Notes Progress Notes by Pierce Chi MD, encounter date 11/28/2024: Progress Notes [facility] Outpatient Parenteral Antimicrobial Therapy (OPAT) Start Form Patient Info Patient MRN Patient Name Address Date of [id number] Yusuf Medina [address] [facility] [id number] 1935 Start Date 11/28/2024 Physician Group [email or web address] Diagnosis Group Diagnosis Osteoarticular: Osteomyelitis Micro-organism STAPHYLOCOCCUS AUREUS IV Antibiotics Antibiotic Dose Frequency Stop Date Cefazolin 2 grams every 8 hours 01/08/2025 Lab Monitoring Plan Labs Frequency While on CBC/diff Creatinine every Tuesday every Tuesday Cefazolin Cefazolin OPAT Pharmacy Consult Yes Cath Care Protocol Flush IV line with 10 mL of normal saline (0.9%) before and after each dose of medication or at a minimum once daily. Flush IV line with 10-20 mL of normal saline (0.9%) after lab draw. Presumed osteomyelitis of the right fibula RT lateral ankle wound infection, into level of FAT FASCIA due to SA RT ankle pressure ulcer, (POA stage 3) RT ankle cellulitis RT ankle pain Physical debility T2DM CKD Stage 3a Esophageal reflux Essential hypertension Hyperlipidemia associated with type 2 diabetes mellitus CKD stage 3 due to type 2 diabetes mellitus Diabetes mellitus, non-insulin dependent (NIDDM or type II) CATIE Labs may be drawn on Tuesday if Tuesday is a holiday. Follow up Provider Follow up date/time Appointment type Pierce Chi MD 01/08/2025 In-person Provider Monitoring Treatment Course Pierce Chi MD Address [address] [place] [address], [place] [address] Prescribing Provider's signature - electronically signed by Pierce Chi MD on 11/28/24 at 8:50 PM documented in this encounter [facility] 01-08-2025 Note [facility] 01-08-2025 History of Present illness Narrative Images from the original note were not included. INFECTIOUS DISEASE WOUND CENTER NOTE Patient Name: Yusuf Medina Date: 01/08/2025 ASSESSMENT: Presumed osteomyelitis of the right fibula. Cultures from 11/27 wound post lavage are also positive for Staphylococcus aureus RT lateral ankle wound infection, into level of FAT FASCIA due to SA RT ankle pressure ulcer, (POA stage 3) RT ankle cellulitis RT ankle pain Physical debility T2DM CKD Stage 3a Esophageal reflux Essential hypertension Hyperlipidemia associated with type 2 diabetes mellitus CKD stage 3 due to type 2 diabetes mellitus Diabetes mellitus, non-insulin dependent (NIDDM or type II) CATIE PLAN: Labs rev [place] stop date today PICC removal in the SNF Follow up prn Signs and symptoms of relapse and discussed in details. All questions answered. INTERVAL HISTORY: ROS done with pt and negative unless stated. Tolerating antibiotics without any problems. No fevers or chills. Pain appears to be controlled. No new complaints. Comfortable with daily treatment plan. No problems with the PICC line MEDICATIONS: predniSONE (DELTASONE) 5 mg tablet Take 5 mg by mouth once daily. (Patient not taking: Reported on 01/04/2025) psyllium husk (METAMUCIL) 3.4 gram/5.4 gram powd Take 3.4 g by mouth once daily. One time a day for constipation acetaminophen 325 mg cap Take 325 mg by mouth two times a day. Give 2 tablets by mouth three times a day for pain for 2 weeks magnesium hydroxide (MILK OF MAGNESIA) 400 mg/5 mL suspension Take 5 mL by mouth once daily as needed for constipation (as needed for constipation). senna-docusate (SENEXON-S) 8.6-50 mg per tablet Take 1 tablet by mouth once daily. amLODIPine (NORVASC) 5 mg tablet TAKE 1 TABLET BY MOUTH ONCE DAILY ceFAZolin (ANCEF) 2 gram/100 mL in dextrose (iso-osmotic) Inject 100 mL intravenously every 8 hours. colchicine 0.6 mg tablet Take 1 tablet by mouth once daily. insulin glargine 100 unit/mL (3 mL) Inject 22 Units subcutaneously daily at bedtime. insulin lispro (HUMALOG U-100 INSULIN) 100 unit/mL injection Inject 8 Units subcutaneously three times a day before meals. Inject 8 units subcutaneously 3 times daily before meals. Check mealtime blood sugar and also administer correction scale.If Blood Glucose (mg/dL) is: Less than 110 Give 0 units 111-150 Give 0 units 151-200 Give 1 unit 201-250 Give 2 units 251-300 Give 3 units 301-350 Give 4 units 351-400 Give 5 units Greater than 400 Give 5 units and Notify Provider pantoprazole DR (PROTONIX) 40 mg tablet Take 1 tablet by mouth two times a day before meals at 6 am and 4 pm. lisinopril (ZESTRIL) 20 mg tablet Take 1 tablet by mouth once daily. metFORMIN (GLUCOPHAGE) 850 mg tablet TAKE 1 TABLET BY MOUTH TWICE DAILY WITH MEALS meloxicam (MOBIC) 15 mg tablet TAKE 1 TABLET BY MOUTH ONCE DAILY NEEDED FOR PAIN. DO NOT COMBINE WITH DICLOFENAC GEL traZODone (DESYREL) 50 mg tablet Take 1 tablet by mouth at bedtime as needed for sedation. pravastatin (PRAVACHOL) 20 mg tablet Take 1 tablet by mouth once daily. diclofenac (VOLTAREN) 1 % topical gel Apply 2 g to affected area four times daily as needed. PHYSICAL EXAM: Vital signs: stable, afeb General: alert, oriented, NAD Lungs: bilaterally clear to auscultation Heart: regular rate and rhythm Abdomen: soft, non tender, non distended, BS+ Extremities: no swollen joints Skin: no rash Lateral malleolus leg wound with pale granulation tissue with signs of infection. The wound appears to be smaller in dimensions Lab data: reviewed WBC (k/uL) Date Value 01/02/2025 10.38 12/12/2024 8.67 12/11/2024 10.37 10/12/2021 7.14 05/27/2020 6.81 05/19/2020 8.19 Hemoglobin (g/dL) Date Value 01/02/2025 10.5 12/12/2024 7.8 12/11/2024 8.4 10/12/2021 11.8 05/27/2020 11.4 05/19/2020 11.3 PT INR (no units) Date Value 12/10/2016 0.9 04/17/2016 1.0 INR (no units) Date Value 12/04/2024 1.0 08/13/2024 1.0 Sodium (mmol/L) Date Value 01/02/2025 137 12/12/2024 137 12/11/2024 138 09/10/2020 141 05/27/2020 131 05/19/2020 129 Potassium (mmol/L) Date Value 01/02/2025 5.1 12/12/2024 3.8 12/11/2024 3.8 09/10/2020 5.0 05/27/2020 5.3 05/19/2020 4.1 CO2 (mmol/L) Date Value 01/02/2025 26 12/12/2024 24 12/11/2024 25 09/10/2020 24 05/27/2020 25 05/19/2020 25 BUN (mg/dL) Date Value 01/02/2025 29 12/12/2024 24 12/11/2024 33 09/10/2020 32 05/27/2020 38 05/19/2020 29 Creatinine (mg/dL) Date Value 01/02/2025 0.82 12/12/2024 0.74 12/11/2024 0.80 09/10/2020 1.22 05/27/2020 1.66 05/19/2020 1.32 AST (U/L) Date Value 01/02/2025 15 12/08/2024 20 12/07/2024 29 05/19/2020 17 03/11/2017 16 12/10/2016 24 ALT (U/L) Date Value 01/02/2025 <5 12/08/2024 <5 12/07/2024 <5 05/19/2020 12 03/11/2017 18 12/10/2016 32 Bilirubin, Total (mg/dL) Date Value 01/02/2025 0.2 12/08/2024 <0.2 12/07/2024 <0.2 05/19/2020 <0.1 03/11/2017 0.1 12/10/2016 0.1 Alkaline Phosphatase (U/L) Date Value 01/02/2025 128 12/08/2024 106 12/07/2024 111 05/19/2020 67 03/11/2017 85 12/10/2016 192 WSR Date Value 08/24/2015 65 mm/hr 05/08/2011 24 mm/hr 12/12/2010 15 mm/hr 09/19/2007 41 mm/Hr 07/11/2007 37 mm/Hr Sed Rate, Westergren (mm/hr) Date Value 01/02/2025 47 12/07/2024 103 12/03/2024 124 12/02/2024 120 11/22/2024 40 11/01/2024 36 08/14/2024 40 Lactate (mmol/L) Date Value 12/02/2024 1.0 03/06/2023 1.8 Sepsis Lactate (mmol/L) Date Value 12/05/2024 1.5 12/01/2024 1.5 11/22/2024 1.9 Vancomycin (ug/mL) Date Value 11/24/2024 11.6 Microbiology data: reviewed Imaging data: reviewed Pierce Chi MD Pager: Nursing Documentation Pertinent Medical History: Type II DM, HTN, CKD, HLD, & GERD Wound Etiology according to patient: 3 months ago a bruise on Right ankle from a fall, seemed to reddened, xrays completed. Split applied and unsuccessful, became inflamed and infected. Patient arrived via: Arrived via wheelchair, accompanied by family members Home Care Company/Nursing Facility:[facility] Consent captured for debridement per Lien Bang DPM and good until December 2024 Anticoagulant Therapy: N/A Living Situation (ie... 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 Provider seeing patient: Lien Bang DPM & Pierce Chi MD __ WOUND ASSESSMENT: Refer to Provider's Wound Assessment Note VASCULAR ASSESSMENT BY PROVIDER: N/A CHF History: No Smoking: Non-smoker Education: N/A EDEMA: Right foot: 3+ Right calf: None Left foot: N/A Left Calf: N/A MEASUREMENTS: in CM Right Calf: 25.0 Right Ankle: 19.4 Left Calf: N/A Left Ankle: N/A Length: 45.0 WOUND PHOTOGRAPHY: No, date taken 12/26/2024 DEBRIDEMENT PROCEDURE BY PROVIDER: Anesthetic Used: 2% Lidocaine gel applied per Jackeline Freeman RN Wound # 1 Other procedure: N/A Specimen collected: N/A WOUND TREATMENT PER MD ORDER: Wounds cleansed by mechanical debridement to allow provider to visualize wound base WOUND # 1 - LOCATION: Right Ankle - (September 2024) - 12/26/2023 sutures and wound vac present on arrival Post-Debridement Measurements: L: 1.5 cm x W: 1.0 cm x D: 0.3 cm Cleansed with: Vashe Applied to laura-wound skin: Gentian Tiffanie Applied to wound bed: Adaptic & Calcium Alginate Covered and secured with: ABD pad, Kerlix, & Tape COMPRESSION: Apply a 4 CHENG wrap to the right foot/feet and ankle(s), followed by a 6 CHENG wrap to the right lower leg(s). DME: Facility SPECIAL NEEDS: Coordination of care N/A Emotional support N/A OR set-up N/A Logging Contractor N/A Incontinence needs N/A DISCHARGED in stable condition to: Arrived via wheelchair accompanied by family & aide PLAN/ORDERS: - Return to the [facility] for a follow-up with duplicating machine mechanic Dr. Bang on January 16 at 1:00 pm. - Follow-up in the wound center to see infectious disease specialist Dr. Chi as needed. - Continue aggressive nutritional support to assist in wound healing, focusing heavily on increasing protein intake. Try to get about 100 g of protein per day to promote wound healing. Look into supplementing your meals with protein shakes. Do NOT skip meals! - Please follow-up with your PCP or demo coordinator about your elevated blood pressure readings. - If you have any questions or concerns that cannot be answered with the following information, please follow the instructions listed above on how to contact the wound center. EDUCATION: The patient/family was instructed how to cleanse the wound(s). Visual demonstration on how to apply the dressing with teach back method. Signs & symptoms of infection were reviewed: Increased redness, swelling, pain, green/yellow drainage, fever and/or chills would all need to be evaluated by a Physician. Patient received typed home-going wound care instructions and has expressed intent to comply. Education performed regarding lymphedema/edema: Elevation of extremity above the heart for 30 minutes three times daily and as needed Exercise such as writing the ABC's with your toes in the air, walking and/or calf pumps Wearing compression as ordered by provider Diet controlling of sodium as instructed by provider Use of medication to help control edema. UNIVERSAL PROTOCOL / SAFETY CHECKLIST - N/A Current HBOT Status: Active or Complete - see screening below WOUND CENTER HYPERBARIC OXYGEN THERAPY SCREENING 1. Is the patient diabetic? (If No, skip to question 5) Yes 2. Does the patient have a lower extremity wound? Yes 3. Is there exposed/involved tendon or bone? Yes 4. Has the wound been present for 30 days? Yes If Yes to ALL questions above, consult the Hyperbaric Center 5. Has the patient been diagnosed with osteomyelitis? No 6. Has the patient had a previous skin graft or flap at the wound? No 7. Has the patient had or been offered vascular intervention/evaluation? No 8. Does the patient have a wound at an amputation site? No 9. Has the patient had radiation therapy at the site of the problem? No If Yes to ANY of questions 5-9, consult the Hyperbaric Center Cinthia Dao RN/TC documented in this encounter [facility] 01-08-2025 Instructions Cinthia Dao RN - 01/08/2025 12:51 PM EST WOUND CARE INSTRUCTIONS- Yusuf Carol Wound location: Right Ankle [facility]: - Please re-apply wound VAC today (01/08/25) PLEASE CONTINUE WOUND VAC PREVIOUS ON THE SETTING OF 150MMhG SUCTION for approximately 1-2 weeks longer. Keep your Wound Vac dressing dry and intact until your next dressing change. If the wound VAC fails, it must be removed within 2 hours to prevent damaging the skin. At the 2 hour simone please remove the entire dressing, wound packing, and all of the laura-wound dressing and begin the alternate dressing as written below. Wound vac settings 150 mmhg negative pressure High intensity Continuous suction PLEASE USE ALTERNATE DRESSING IF WOUND VAC IS NOT WORKING FOR GREATER THAN 2 HOURS. ALTERNATE DRESSING: - Gather supplies - Place down a clean work surface such as new paper towel or newly cleaned towel - Clean all metal instruments with rubbing alcohol before and after each use. - Plastic garbage bag for old dressing - Wash your hands with soap and water before and after wound care. - Apply a vashe' moistened 4x4 gauze soak for 5-10 minutes. Pat dry. - Apply adaptic (screen like material) and calcium alginate (felt material) to the wound base. - Cover with abd pad, gauze, kerlix. - Secure dressing with tape - Change your dressing daily or as needed to maintain a clean, dry and intact dressing. Apply a 4 CHENG wrap to the left foot & 6 CHENG wrap to the right calf, 1 below the back of the knee. Please wear continuously throughout the day. You may remove at bedtime, but they must be re-applied first thing in the morning in order to avoid gravity negatively impacting your swelling. These wraps may be machine washed in cold water, but must be hung to dry (do NOT put in the dryer, as this can damage the elastic). They are typically usable for about 2-3 weeks, then they will need to be disposed of and replaced due to being worn out. Please remove if they become painful, or if she loses feeling in her feet. Also pay attention to any color changes in the foot and leg that could be due to loss of circulation. Regarding lymphedema/edema: Elevation of extremity above the heart for 30 minutes three times daily and as needed Exercise such as writing the ABC's with your toes in the air, walking and/or calf pumps Wearing compression as ordered by provider Diet controlling of sodium as instructed by provider Use of medication to help control edema. To give your wound the best chance to heal: - Eat three balanced meals daily focusing on the protein - Control swelling by elevating the extremity above your heart - exercise the extremity - Control your blood sugar. Keep blood sugar less than 200 - Complete your wound care instructions - Vitamin C 500 mg twice daily - Multiple Vitamin Daily - Drink a protein shake daily - Smoking decreases the amount of oxygen delivered to tissue and can impair wound healing and/or increased risk of infection Report any of the following changes to the Wound Center at [phone] or go to the Emergency Department: Fever or chills Increased drainage Green or yellow drainage Foul odor Increased pain Hardness around the wound Redness, warmth or swelling of the surrounding tissue Color change to the wound When contacting the wound center at the ([phone]): Leave a message that includes your full name, birthday, phone number who your provider is and the reason for your call. During clinic hours we are with patients. A nurse will return your call within 24-48 hours in the order it was received. The wound center is closed weekends and on major holidays. If you call at that time we will return your call in the order that the calls were received at the soonest opportunity. If you have any signs of infection or need immediate attention then please go to the emergency department to be evaluated Thank you for your understanding and cooperation. If you are feeling ill, please call to reschedule your appointment. If you believe your illness to be wound related, call and leave a message using the directions above describing your symptoms. If you cannot wait 24-48 hrs for a callback, please get evaluated in the nearest emergency department. PLAN/ORDERS: - Return to the [facility] for a follow-up with duplicating machine mechanic Dr. Bang on January 16 at 1:00 pm. - Follow-up in the wound center to see infectious disease specialist Dr. Chi as needed. - Continue aggressive nutritional support to assist in wound healing, focusing heavily on increasing protein intake. Try to get about 100 g of protein per day to promote wound healing. Look into supplementing your meals with protein shakes. Do NOT skip meals! - Please follow-up with your PCP or demo coordinator about your elevated blood pressure readings. - If you have any questions or concerns that cannot be answered with the following information, please follow the instructions listed above on how to contact the wound center. Pierce Chi MD/ALANA/TC documented in this encounter [facility] 01-08-2025 Note [facility] 01-08-2025 Telephone encounter Note Yusuf has an appt today with Alon at [facility]. She's currently on Cefazolin 2g iv q8 with a stop date for today. [facility] 01-07-2025 Telephone encounter Note Jan 07 labs reviewed, no changes The creat was never done The results were attached to the M drive [facility] 01-04-2025 Telephone encounter Note Received record release from [facility]. Faxed to number provided on form, confirmation fax received. [facility] 01-04-2025 Miscellaneous Notes Received record release from [facility]. Faxed to number provided on form, confirmation fax received. The initial note indicates that a retail wireless sales representative is calling and gave return phone number [phone]. I called this number and phone rang and rang numerous times. No voice mail. I can print of POA, stamp and fax since this is a facility to facility request. Given to nursing. If the retail wireless sales representative needs anything else and calls back, Please ask for name and direct line so that return call can be made. Thank you. Willie Kaur APRN.[place] Spoke with a litigation secretary at [facility], he took the info again to get us a signed records release faxed to the office. Please watch for fax Please advise [facility] that if patient signs record release, they can get any records they need from [facility] medical records. Or family can sign record request at assisted and assisted can fax Family Medicine the records request and I can send what I can. Our fax is [phone]. Willie Kaur APRN.CNP Records release was not signed. Please review and advice. Received call from [facility]. The retail wireless sales representative has appointment with patient's sons this afternoon at 2 pm and is requesting Advanced Directive/POA paperwork that was scanned in on 12/31. Advised to send records request, but she is concerned about not having this paperwork by 2 pm meeting. Oil Rigger can be reached at [phone]. Fax number given for records request as well. documented in this encounter [facility] 01-04-2025 Telephone encounter Note The initial note indicates that a retail wireless sales representative is calling and gave return phone number [phone]. I called this number and phone rang and rang numerous times. No voice mail. I can print of POA, stamp and fax since this is a facility to facility request. Given to nursing. If the retail wireless sales representative needs anything else and calls back, Please ask for name and direct line so that return call can be made. Thank you. Willie Kaur APRN.DRAKE [facility] 01-04-2025 Telephone encounter Note Spoke with a litigation secretary at [facility], he took the info again to get us a signed records release faxed to the office. Please watch for fax [facility] 01-04-2025 Telephone encounter Note Please advise [facility] that if patient signs record release, they can get any records they need from [facility] medical records. Or family can sign record request at assisted and assisted can fax Family Medicine the records request and I can send what I can. Our fax is [phone]. Willie Kaur APRN.B[employer] [place] [facility] 01-04-2025 Note HNO ID: [id number] Author: TYESHA SINGLETON MD Service: ? Author Type: Physician Type: Progress Notes Filed: 01/04/2025 09:10 Note Text: Yusuf Medina is a 89 year old female who presents for establishing care HPI: with h/o DM, referrd her to rheum for possible inflammaotry arthritis She was admitted to ER on 11/21/24 for rt ankle pain and swelling ,diagnosed with rt ankle cellulitis and later osteomyelitis of fibula s/p debridement and IV abx. While in hospital, had severe pain in all joints and Rheum consult obtained -suspicion for CPPD as xray of wrists and knees showed evidence of this and started on colchicine and mobic with dramatic improvement Currently she is in [place] and here with AVELINA and nurse aid who gives the history Currently she is pain free Also spoke with her nurse at [place] who states patient does nto complain of pain, pretty sedentary. No specific complaints at DC per nurse Currently doing well, no pain at present Family states after debridement of rt ankle- patient feels weak and does not want to walk around Was living alone until 2 months ago and now at [place]. Prior to debridement , patient was not walking around much per family member No rash, ulcers, fevers, swollen lymph nodes, DVT/PE, raynauds, sicca symptoms, trouble swallowing, back pain, red eyes, Chron's/UC or Psoriasis. MEDS/THERAPIES TRIED: Colchicine qd TYPICAL DAY: REVIEW OF SYSTEMS GENERAL: No weight loss, malaise or fevers., SEE HPI HEENT: Negative for frequent or significant headaches, No changes in hearing or vision, no nose bleeds or other nasal problems RESPIRATORY: Negative for cough, wheezing or shortness of breath. CARDIOVASCULAR: Negative for chest pain, leg swelling or palpitations. GI: Negative for abdominal discomfort, blood in stools or black stools or change in bowel habits MUSCULOSKELETAL :see HPI SKIN: Negative for lesions, rash, and itching. PSYCH: Negative for sleep disturbance, mood disorder and recent psychosocial stressors. NEURO: No history of syncope, paralysis, seizures or tremors All other reviewed and negative other than HPI. 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/25/2017 CKD (chronic kidney disease) 05/11/2016 Essential hypertension, benign Hyperlipidemia LDL goal < 100 02/12/2014 Intractable low back pain 08/25/2015 Osteoarthrosis, unspecified whether generalized or localized, other specified sites Left hip Plantar fasciitis 05/25/2017 Primary insomnia 05/25/2017 Renal dysfunction Type II or unspecified type diabetes mellitus without mention of complication, not stated as uncontrolled PAST SURGICAL HISTORY Procedure Laterality Date ARTHRP ACETBLR/PROX FEM PROSTC AGRFT/ALGRFT 11/14/2011 Hip replacement, total, L REMV CATARACT EXTRACAP,INSERT LENS Bilateral 2020 [facility] predniSONE (DELTASONE) 5 mg tablet Take 5 mg by mouth once daily. psyllium husk (METAMUCIL) 3.4 gram/5.4 gram powd Take 3.4 g by mouth once daily. One time a day for constipation acetaminophen 325 mg cap Take 325 mg by mouth two times a day. Give 2 tablets by mouth three times a day for pain for 2 weeks magnesium hydroxide (MILK OF MAGNESIA) 400 mg/5 mL suspension Take 5 mL by mouth once daily as needed for constipation (as needed for constipation). senna-docusate (SENEXON-S) 8.6-50 mg per tablet Take 1 tablet by mouth once daily. amLODIPine (NORVASC) 5 mg tablet TAKE 1 TABLET BY MOUTH ONCE DAILY ceFAZolin (ANCEF) 2 gram/100 mL in dextrose (iso-osmotic) Inject 100 mL intravenously every 8 hours. colchicine 0.6 mg tablet Take 1 tablet by mouth once daily. insulin glargine 100 unit/mL (3 mL) Inject 22 Units subcutaneously daily at bedtime. insulin lispro (HUMALOG U-100 INSULIN) 100 unit/mL injection Inject 8 Units subcutaneously three times a day before meals. Inject 8 units subcutaneously 3 times daily before meals. Check mealtime blood sugar and also administer correction scale.If Blood Glucose (mg/dL) is: Less than 110 Give 0 units 111-150 Give 0 units 151-200 Give 1 unit 201-250 Give 2 units 251-300 Give 3 units 301-350 Give 4 units 351-400 Give 5 units Greater than 400 Give 5 units and Notify Provider pantoprazole DR (PROTONIX) 40 mg tablet Take 1 tablet by mouth two times a day before meals at 6 am and 4 pm. lisinopril (ZESTRIL) 20 mg tablet Take 1 tablet by mouth once daily. metFORMIN (GLUCOPHAGE) 850 mg tablet TAKE 1 TABLET BY MOUTH TWICE DAILY WITH MEALS meloxicam (MOBIC) 15 mg tablet TAKE 1 TABLET BY MOUTH ONCE DAILY NEEDED FOR PAIN. DO NOT COMBINE WITH DICLOFENAC GEL traZODone (DESYREL) 50 mg tablet Take 1 tablet by mouth at bedtime as needed for sedation. pravastatin (PRAVACHOL) 20 mg tablet Take 1 tablet by mouth once daily. diclofenac (VOLTAREN) 1 % topical gel Apply 2 g to affected area four times daily as needed. FAMILY HISTORY Problem Relation Age of Onset None Brother None Sister None B (more content not included)... [facility] 01-04-2025 History of Present illness Narrative Yusuf Medina is a 89 year old female who presents for establishing care HPI: with h/o DM, referrd her to rheum for possible inflammaotry arthritis She was admitted to ER on 11/21/24 for rt ankle pain and swelling ,diagnosed with rt ankle cellulitis and later osteomyelitis of fibula s/p debridement and IV abx. While in hospital, had severe pain in all joints and Rheum consult obtained -suspicion for CPPD as xray of wrists and knees showed evidence of this and started on colchicine and mobic with dramatic improvement Currently she is in [place] and here with AVELINA and nurse aid who gives the history Currently she is pain free Also spoke with her nurse at [facility] who states patient does nto complain of pain, pretty sedentary. No specific complaints at DC per nurse Currently doing well, no pain at present Family states after debridement of rt ankle- patient feels weak and does not want to walk around Was living alone until 2 months ago and now at [place]. Prior to debridement , patient was not walking around much per family member No rash, ulcers, fevers, swollen lymph nodes, DVT/PE, raynauds, sicca symptoms, trouble swallowing, back pain, red eyes, Chron's/UC or Psoriasis. MEDS/THERAPIES TRIED: Colchicine qd TYPICAL DAY: REVIEW OF SYSTEMS GENERAL: No weight loss, malaise or fevers., SEE HPI HEENT: Negative for frequent or significant headaches, No changes in hearing or vision, no nose bleeds or other nasal problems RESPIRATORY: Negative for cough, wheezing or shortness of breath. CARDIOVASCULAR: Negative for chest pain, leg swelling or palpitations. GI: Negative for abdominal discomfort, blood in stools or black stools or change in bowel habits MUSCULOSKELETAL :see HPI SKIN: Negative for lesions, rash, and itching. PSYCH: Negative for sleep disturbance, mood disorder and recent psychosocial stressors. NEURO: No history of syncope, paralysis, seizures or tremors All other reviewed and negative other than HPI. 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/25/2017 CKD (chronic kidney disease) 05/11/2016 Essential hypertension, benign Hyperlipidemia LDL goal < 100 02/12/2014 Intractable low back pain 08/25/2015 Osteoarthrosis, unspecified whether generalized or localized, other specified sites Left hip Plantar fasciitis 05/25/2017 Primary insomnia 05/25/2017 Renal dysfunction Type II or unspecified type diabetes mellitus without mention of complication, not stated as uncontrolled PAST SURGICAL HISTORY Procedure Laterality Date ARTHRP ACETBLR/PROX FEM PROSTC AGRFT/ALGRFT 11/14/2011 Hip replacement, total, L REMV CATARACT EXTRACAP,INSERT LENS Bilateral 2020 [facility] predniSONE (DELTASONE) 5 mg tablet Take 5 mg by mouth once daily. psyllium husk (METAMUCIL) 3.4 gram/5.4 gram powd Take 3.4 g by mouth once daily. One time a day for constipation acetaminophen 325 mg cap Take 325 mg by mouth two times a day. Give 2 tablets by mouth three times a day for pain for 2 weeks magnesium hydroxide (MILK OF MAGNESIA) 400 mg/5 mL suspension Take 5 mL by mouth once daily as needed for constipation (as needed for constipation). senna-docusate (SENEXON-S) 8.6-50 mg per tablet Take 1 tablet by mouth once daily. amLODIPine (NORVASC) 5 mg tablet TAKE 1 TABLET BY MOUTH ONCE DAILY ceFAZolin (ANCEF) 2 gram/100 mL in dextrose (iso-osmotic) Inject 100 mL intravenously every 8 hours. colchicine 0.6 mg tablet Take 1 tablet by mouth once daily. insulin glargine 100 unit/mL (3 mL) Inject 22 Units subcutaneously daily at bedtime. insulin lispro (HUMALOG U-100 INSULIN) 100 unit/mL injection Inject 8 Units subcutaneously three times a day before meals. Inject 8 units subcutaneously 3 times daily before meals. Check mealtime blood sugar and also administer correction scale.If Blood Glucose (mg/dL) is: Less than 110 Give 0 units 111-150 Give 0 units 151-200 Give 1 unit 201-250 Give 2 units 251-300 Give 3 units 301-350 Give 4 units 351-400 Give 5 units Greater than 400 Give 5 units and Notify Provider pantoprazole DR (PROTONIX) 40 mg tablet Take 1 tablet by mouth two times a day before meals at 6 am and 4 pm. lisinopril (ZESTRIL) 20 mg tablet Take 1 tablet by mouth once daily. metFORMIN (GLUCOPHAGE) 850 mg tablet TAKE 1 TABLET BY MOUTH TWICE DAILY WITH MEALS meloxicam (MOBIC) 15 mg tablet TAKE 1 TABLET BY MOUTH ONCE DAILY NEEDED FOR PAIN. DO NOT COMBINE WITH DICLOFENAC GEL traZODone (DESYREL) 50 mg tablet Take 1 tablet by mouth at bedtime as needed for sedation. pravastatin (PRAVACHOL) 20 mg tablet Take 1 tablet by mouth once daily. diclofenac (VOLTAREN) 1 % topical gel Apply 2 g to affected area four times daily as needed. FAMILY HISTORY Problem Relation Age of Onset None Brother None Sister None Brother Social History Tobacco Use Smoking status: Never Smokeless tobacco: Never Vaping Use Vaping status: Never Used Substance Use Topics Alcohol use: No Drug use: No BP 165/59 Pulse 84 Resp 16 Ht 152.4 cm (5') Wt 47 kg (103 lb 9.9 oz) BMI 20.24 kg/m PHYSICAL EXAMINATION Physical Exam Vitals and nursing note reviewed. Constitutional: Appearance: Normal appearance. Skin: Negative for lesions, rash, and itching Eyes: Extraocular Movements: Extraocular movements intact. Pupils: Pupils are equal, round, and reactive to light. Abdominal: General: Abdomen is flat. Bowel sounds are normal. Palpations: Abdomen is soft. Neurological: Mental Status:Alert and oriented to person, place, and time. Musculoskeletal :wheelchair bound No pain of any joints noted No synovitis noted Bilateral shoulders- stiffness and decreased ROM Rt knee- bony enlargement with stiffness on ROM Rt ankle- wrapped in bandages, no pain noted Tender joints-none Swollen joints-rt ankle and foot LABS and XRAYS MRI rt ankle MPRESSION: Nonspecific circumferential subcutaneous/soft tissue edema involving the distal leg and ankle. Muscle fatty changes and edema which may be related to disuse. Moderate midfoot osteoarthritis. No evidence of inflammatory arthritis. Xr wrists 03/07/2023 1:26 PM - Radiology, [place] In Impression IMPRESSION: 1. Bilateral wrist chondrocalcinosis with soft tissue swelling. 2. Collapse of the right wrist with severe degenerative changes of the radiocarpal articulation. IMPPRESSION: xr knees Bilateral knee degenerative arthritis and chondrocalcinosis. Moderate right knee joint effusion. Latest Ref Rng 12/02/2024 12/03/2024 12/07/2024 CCP Antibody IgG Qualitative Negative Negative CCP Antibody, IgG <20 Units <15 DNA Antibody <=200 IU/mL 117 DNA Antibody Qualitative Interpretation Negative Negative CRP <0.9 mg/dL 14.2 (H) 20.0 (H) 3.6 (H) Vitamin D 25 Hydroxy 31.0 - 80.0 ng/mL 13.4 (L) Legend: (H) High (L) Low IMP/PLAN: 1. Pseudogout - mostly of bilateral knees and wrists -xray shows evidence of such -continue colchicine every day -continue mobic 15mg po every day prn -written instructions given to DC as well as verbal instructions to family and nurse who is taking care of her at [place] 2. Rt ankle cellulitis and osteomyelitis -currently [facility] of podiatry and wound vac application -continue to follow up with them 3. Medication monitoring -renal functions intact -continue colchicine every day Consultation requested by Dr. Cramer for an opinion regarding inflammatory arthritis . My final recommendations will be communicated back to the requesting physician by way of shared Medical record or letter to requesting physician via [place] mail. Tyesha Singleton MD Answers submitted by the patient for this visit: Review of Systems Rheumatology (Submitted on 2024) Eye pain: No Eye redness: No Vision Disturbance: No Eye Dryness: No Nosebleeds: No Sores in your mouth: No Trouble Swallowing: No Dry Mouth: No Chest pain: No Leg Swelling: Yes A cough: Yes Blood when you cough: No Shortness of breath: No Pain with breathing: No Heartburn: No Abdominal pain: No Diarrhea: No Black tarry stools: No Blood in urine: No Joint pain or stiffness: Yes Muscle weakness: Yes Muscle aches: Yes Joint swelling: Yes Morning Stiffness in Joints: Yes A rash: Yes Do you have sun sensitive rashes?: No Skin Color Changes: No Hair Loss: No Nail Changes: No Headaches: Yes Numbness: No Memory Loss: Yes Swollen Glands: No documented in this encounter [facility] 01-03-2025 Telephone encounter Note Records release was not signed. Please review and advice. [facility] 01-03-2025 Telephone encounter Note Received call from [facility]. The retail wireless sales representative has appointment with patient's sons this afternoon at 2 pm and is requesting Advanced Directive/POA paperwork that was scanned in on 12/31. Advised to send records request, but she is concerned about not having this paperwork by 2 pm meeting. Oil Rigger can be reached at [phone]. Fax number given for records request as well. [facility] 01-02-2025 Telephone encounter Note SOCIAL WORK Date of Service: Thursday January 02, 2025 [facility] [employer] D[employer] Server (SW) Aditi Lopez attempted to contact Yusuf Medina by phone using agricultural economist services to complete the distress assessment. Yusuf has been diagnosed with Normocytic anemia. She flagged for moderate depression on 12-31-24. 08/14/2018 11/21/2024 2024 PHQ-9 Score 9 13 12 LYRIC spoke with Yusuf's family member Mercedes. She advised that [place] [facility] [place]. Mercedes advised that she completed the questionnaire without the patient. She also noted that Yusuf will most likely not understand the American agricultural economist because she speaks a different dialect. At this time, social work service is declined/deferred based on: she pt is at a SNF and family member completed the questionnaire. Please re-consult social work if any other psychosocial needs arise. Unable To Reach Patient PLAN: Follow up on an as needed basis ALEJANDRO Encarnacion [facility] Work Phone: 01-02-2025 Miscellaneous Notes SOCIAL WORK Date of Service: Thursday January 02, 2025 [facility] [employer] Server (SW) Aditi Lopez attempted to contact Yusuf Medina by phone using agricultural economist services to complete the distress assessment. Yusuf has been diagnosed with Normocytic anemia. She flagged for moderate depression on 12-31-24. 08/14/2018 11/21/2024 2024 PHQ-9 Score 9 13 12 SW spoke with Yusuf's family member Mercedes. She advised that Yusuf is in [place]. Mercedes advised that she completed the questionnaire without the patient. She also noted that Yusuf will most likely not understand the [employer] agricultural economist because she speaks a different dialect. At this time, social work service is declined/deferred based on: she pt is at a SNF and family member completed the questionnaire. Please re-consult social work if any other psychosocial needs arise. Unable To Reach Patient PLAN: Follow up on an as needed basis ALEJANDRO Encarnacion documented in this encounter [facility] 01-02-2025 Instructions Grupo Mendez MD - 01/02/2025 9:19 AM EST Hemoglobin was low at 7.8 Obtaining repeat lab to determine if blood transfusion needed and if needs nutrient support for anemia Recommend repeating blood counts once weekly for next 6 weeks starting next week Please schedule follow-up with Dr. Mendez in 7 weeks For scheduling questions, please call [phone] (tests and appointments). Ask for the oncology medical appointment scheduler. For symptom management or care coordination questions, please call Renetta at [phone] or use my chart to reach us. After hours with medical questions, please call the doctor on-call at [phone]. Thank you, Grupo Mendez MD documented in this encounter [facility] 01-02-2025 Note HNO ID: [id number] Author: GRUPO MEDNEZ MD Service: ? Author Type: Physician Type: Progress Notes Filed: 01/31/2025 23:53 Note Text: Referring physician: Dr. Migdalia Cramer Presenting complaint: Patient Yusuf Medina returns for follow-up on leukocytosis, anemia. ASSESSMENT: (D72.829) Leukocytosis, unspecified type (primary encounter diagnosis) Comment: Patient is a delightful 89 year old lady with prior admission from 03/07/2023 to 03/09/2023 for leukocytosis and polyarthralgia. Prior Xray of the knee and wrists showed chondrocalcinosis. She was seen by rheumatology with recommendations for tap of her wrists which patient declined. CBC on 08/13/2024 showed WBC 17.15 Hb 10.9 HCT 33.5 MCV 87.9 Platelets 321 CBC on 08/14/2024 showed WBC 12.41 Hb 11.2 HCT 35.2 MCV 89.3 Platelets 330 Plan: Leukocytosis appeared reactive and neutrophilic. BCR/ABL was negative ruling out CML on 09/17/2024 Peripheral smear was negative for signs of dysplasia or immature cells Monitor. (D64.9) Normocytic anemia Comment: Hb was 7.8 on 12/12/2024 Plan: Obtain CBC, type and screen, iron studies, ferritin, folate, Vitamin B12, Vitamin B6, zinc, copper, CMP, sed rate. Pyridoxine, vitamin B6, (VITAMIN B6) 50 mg tablet daily (E53.1) Vitamin B6 deficiency Comment: deficient, Vitamin B6 level was 13.8 on 01/02/2025 Plan: pyridoxine, vitamin B6, (VITAMIN B6) 50 mg tablet daily. (L03.115) Cellulitis of right ankle Comment: presumed osteomyelitis of the right fibula with cultures from 11/27/2024 positive for staph aureus Plan: on broad spectrum antibiotics with cefazolin 2 gram every 8 hours via PICC line right side through next Tuesday, seeing ID on 01/08/2025, seeing rheumatology next Tuesday. Return in about 7 weeks (around 02/18/2025) for follow-up with provider. Medical Decision Making: Problems: Moderate: 1+ chronic illnesses with change and 2+ stable chronic illnesses Data: Unique test result(s) reviewed: 1 Unique test(s) ordered: 1 Assessment requiring an independent historian(s) Independent interpretation of test from other physician/QHCP Risk: Low: Low risk from testing/treatment Medical Decision Making Level: 4 - Moderate HPI: Patient is a delightful 88 year old lady with prior admission from 03/07/2023 to 03/09/2023 for leukocytosis and polyarthralgia. Prior Xray of the knee and wrists showed chondrocalcinosis. She was seen by rheumatology with recommendations for tap of her wrists which patient declined. CBC on 08/13/2024 showed WBC 17.15 Hb 10.9 HCT 33.5 MCV 87.9 Platelets 321 CBC on 08/14/2024 showed WBC 12.41 Hb 11.2 HCT 35.2 MCV 89.3 Platelets 330 Patient was diagnosed with presumed osteomyelitis of the right fibula with cultures from 11/27/2024 positive for staph aureus She is undergoing broad spectrum antibiotics through next Tuesday. She is seeing ID on 01/08/2025. She is seeing rheumatology next Tuesday. 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/25/2017 CKD (chronic kidney disease) 05/11/2016 Essential hypertension, benign Hyperlipidemia LDL goal < 100 02/12/2014 Intractable low back pain 08/25/2015 Osteoarthrosis, unspecified whether generalized or localized, other specified sites Left hip Plantar fasciitis 05/25/2017 Primary insomnia 05/25/2017 Renal dysfunction Type II or unspecified type diabetes mellitus without mention of complication, not stated as uncontrolled PAST SURGICAL HISTORY Procedure Laterality Date ARTHRP ACETBLR/PROX FEM PROSTC AGRFT/ALGRFT 11/14/2011 Hip replacement, total, L REMV CATARACT EXTRACAP,INSERT LENS Bilateral 2020 [facility] FAMILY HISTORY Problem Relation Age of Onset None Brother None Sister None Brother SOCIAL HISTORY Social History Tobacco Use Smoking status: Never Smokeless tobacco: Never Vaping Use Vaping status: Never Used Substance Use Topics Alcohol use: No Drug use: No ALLERGIES: ALLERGIES No Known Allergies MEDICATIONS: Current Outpatient Medications Medication Sig predniSONE (DELTASONE) 5 mg tablet Take 5 mg by mouth once daily. (Patient not taking: Reported on 01/04/2025) psyllium husk (METAMUCIL) 3.4 gram/5.4 gram powd Take 3.4 g by mouth once daily. One time a day for constipation acetaminophen 325 mg cap Take 325 mg by mouth two times a day. Give 2 tablets by mouth three times a day for pain for 2 weeks magnesium hydroxide (MILK OF MAGNESIA) 400 mg/5 mL suspension Take 5 mL by mouth once daily as needed for constipation (as needed for constipation). senna-docusate (SENEXON-S) 8.6-50 mg per tablet Take 1 tablet by mouth once daily. amLODIPine (NORVASC) 5 mg tablet TAKE 1 TABLET BY MOUTH ONCE DAILY ceFAZolin (ANCEF) 2 gram/100 mL in dextrose (iso-osmotic) Inject 100 mL intravenously every 8 hours. (Patient not taking: Reported on 01/08/2025) colchicine 0.6 mg tablet Take 1 tablet by mouth once daily. insulin glargine 100 unit/mL (3 mL) I (more content not included)... [facility] 01-02-2025 History of Present illness Narrative Referring physician: Dr. Migdalia Cramer Presenting complaint: Patient Yusuf Medina returns for follow-up on leukocytosis, anemia. ASSESSMENT: (D72.829) Leukocytosis, unspecified type (primary encounter diagnosis) Comment: Patient is a delightful 89 year old lady with prior admission from 03/07/2023 to 03/09/2023 for leukocytosis and polyarthralgia. Prior Xray of the knee and wrists showed chondrocalcinosis. She was seen by rheumatology with recommendations for tap of her wrists which patient declined. CBC on 08/13/2024 showed WBC 17.15 Hb 10.9 HCT 33.5 MCV 87.9 Platelets 321 CBC on 08/14/2024 showed WBC 12.41 Hb 11.2 HCT 35.2 MCV 89.3 Platelets 330 Plan: Leukocytosis appeared reactive and neutrophilic. BCR/ABL was negative ruling out CML on 09/17/2024 Peripheral smear was negative for signs of dysplasia or immature cells Monitor. (D64.9) Normocytic anemia Comment: Hb was 7.8 on 12/12/2024 Plan: Obtain CBC, type and screen, iron studies, ferritin, folate, Vitamin B12, Vitamin B6, zinc, copper, CMP, sed rate. Pyridoxine, vitamin B6, (VITAMIN B6) 50 mg tablet daily (E53.1) Vitamin B6 deficiency Comment: deficient, Vitamin B6 level was 13.8 on 01/02/2025 Plan: pyridoxine, vitamin B6, (VITAMIN B6) 50 mg tablet daily. (L03.115) Cellulitis of right ankle Comment: presumed osteomyelitis of the right fibula with cultures from 11/27/2024 positive for staph aureus Plan: on broad spectrum antibiotics with cefazolin 2 gram every 8 hours via PICC line right side through next Tuesday, seeing ID on 01/08/2025, seeing rheumatology next Tuesday. Return in about 7 weeks (around 02/18/2025) for follow-up with provider. Medical Decision Making: Problems: Moderate: 1+ chronic illnesses with change and 2+ stable chronic illnesses Data: Unique test result(s) reviewed: 1 Unique test(s) ordered: 1 Assessment requiring an independent historian(s) Independent interpretation of test from other physician/QHCP Risk: Low: Low risk from testing/treatment Medical Decision Making Level: 4 - Moderate HPI: Patient is a delightful 88 year old lady with prior admission from 03/07/2023 to 03/09/2023 for leukocytosis and polyarthralgia. Prior Xray of the knee and wrists showed chondrocalcinosis. She was seen by rheumatology with recommendations for tap of her wrists which patient declined. CBC on 08/13/2024 showed WBC 17.15 Hb 10.9 HCT 33.5 MCV 87.9 Platelets 321 CBC on 08/14/2024 showed WBC 12.41 Hb 11.2 HCT 35.2 MCV 89.3 Platelets 330 Patient was diagnosed with presumed osteomyelitis of the right fibula with cultures from 11/27/2024 positive for staph aureus She is undergoing broad spectrum antibiotics through next Tuesday. She is seeing ID on 01/08/2025. She is seeing rheumatology next Tuesday. 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/25/2017 CKD (chronic kidney disease) 05/11/2016 Essential hypertension, benign Hyperlipidemia LDL goal < 100 02/12/2014 Intractable low back pain 08/25/2015 Osteoarthrosis, unspecified whether generalized or localized, other specified sites Left hip Plantar fasciitis 05/25/2017 Primary insomnia 05/25/2017 Renal dysfunction Type II or unspecified type diabetes mellitus without mention of complication, not stated as uncontrolled PAST SURGICAL HISTORY Procedure Laterality Date ARTHRP ACETBLR/PROX FEM PROSTC AGRFT/ALGRFT 11/14/2011 Hip replacement, total, L REMV CATARACT EXTRACAP,INSERT LENS Bilateral 2020 [facility] FAMILY HISTORY Problem Relation Age of Onset None Brother None Sister None Brother SOCIAL HISTORY Social History Tobacco Use Smoking status: Never Smokeless tobacco: Never Vaping Use Vaping status: Never Used Substance Use Topics Alcohol use: No Drug use: No ALLERGIES: ALLERGIES No Known Allergies MEDICATIONS: Current Outpatient Medications Medication Sig predniSONE (DELTASONE) 5 mg tablet Take 5 mg by mouth once daily. (Patient not taking: Reported on 01/04/2025) psyllium husk (METAMUCIL) 3.4 gram/5.4 gram powd Take 3.4 g by mouth once daily. One time a day for constipation acetaminophen 325 mg cap Take 325 mg by mouth two times a day. Give 2 tablets by mouth three times a day for pain for 2 weeks magnesium hydroxide (MILK OF MAGNESIA) 400 mg/5 mL suspension Take 5 mL by mouth once daily as needed for constipation (as needed for constipation). senna-docusate (SENEXON-S) 8.6-50 mg per tablet Take 1 tablet by mouth once daily. amLODIPine (NORVASC) 5 mg tablet TAKE 1 TABLET BY MOUTH ONCE DAILY ceFAZolin (ANCEF) 2 gram/100 mL in dextrose (iso-osmotic) Inject 100 mL intravenously every 8 hours. (Patient not taking: Reported on 01/08/2025) colchicine 0.6 mg tablet Take 1 tablet by mouth once daily. insulin glargine 100 unit/mL (3 mL) Inject 22 Units subcutaneously daily at bedtime. (Patient taking differently: Inject 10 Units subcutaneously daily at bedtime.) insulin lispro (HUMALOG U-100 INSULIN) 100 unit/mL injection Inject 8 Units subcutaneously three times a day before meals. Inject 8 units subcutaneously 3 times daily before meals. Check mealtime blood sugar and also administer correction scale.If Blood Glucose (mg/dL) is: Less than 110 Give 0 units 111-150 Give 0 units 151-200 Give 1 unit 201-250 Give 2 units 251-300 Give 3 units 301-350 Give 4 units 351-400 Give 5 units Greater than 400 Give 5 units and Notify Provider (Patient taking differently: Inject 2 Units subcutaneously three times a day before meals. Inject 8 units subcutaneously 3 times daily before meals. Check mealtime blood sugar and also administer correction scale.If Blood Glucose (mg/dL) is: Less than 110 Give 0 units 111-150 Give 0 units 151-200 Give 1 unit 201-250 Give 2 units 251-300 Give 3 units 301-350 Give 4 units 351-400 Give 5 units Greater than 400 Give 5 units and Notify Provider) pantoprazole DR (PROTONIX) 40 mg tablet Take 1 tablet by mouth two times a day before meals at 6 am and 4 pm. lisinopril (ZESTRIL) 20 mg tablet Take 1 tablet by mouth once daily. metFORMIN (GLUCOPHAGE) 850 mg tablet TAKE 1 TABLET BY MOUTH TWICE DAILY WITH MEALS meloxicam (MOBIC) 15 mg tablet TAKE 1 TABLET BY MOUTH ONCE DAILY NEEDED FOR PAIN. DO NOT COMBINE WITH DICLOFENAC GEL traZODone (DESYREL) 50 mg tablet Take 1 tablet by mouth at bedtime as needed for sedation. (Patient not taking: Reported on 01/16/2025) pravastatin (PRAVACHOL) 20 mg tablet Take 1 tablet by mouth once daily. (Patient not taking: Reported on 01/16/2025) diclofenac (VOLTAREN) 1 % topical gel Apply 2 g to affected area four times daily as needed. atorvastatin (LIPITOR) 40 mg tablet Take 40 mg by mouth once daily. glipiZIDE 2.5 mg tablet Take 2.5 mg by mouth once daily. therapeutic multivitamin-minerals (THERA-M PLUS) 9 mg iron-400 mcg tablet Take 1 tablet by mouth once daily. ascorbic acid, vitamin C, (VITAMIN C) 500 mg tablet Take 500 mg by mouth two times a day. GLUCAGON INJECTION 1 mg by INJECTION(UNSPECIFIED PARENTERAL ROUTES) route as needed (hypoglycemia). If glucose is less than 70 and non-responsive or NPO. Repeat blood sugar in 15 minutes. ipratropium-albuterol (DUONEB) 0.5 mg-3 mg(2.5 mg base)/3 mL nebu Inhale 3 mL as instructed every 4 hours as needed for wheezing/shortness of breath. pyridoxine, vitamin B6, (VITAMIN B6) 50 mg tablet Take 1 tablet by mouth once daily. No current facility-administered medications for this visit. REVIEW OF SYSTEMS: Review of Systems Constitutional: Positive for fatigue. Negative for appetite change, chills, fever and unexpected weight change. HENT: Negative for mouth sores, nosebleeds and trouble swallowing. Eyes: Negative for eye problems and icterus. Respiratory: Negative for cough, hemoptysis and shortness of breath. Cardiovascular: Positive for leg swelling. Negative for chest pain and palpitations. Right ankle swelling Gastrointestinal: Positive for constipation. Negative for abdominal pain and blood in stool. Metamucil for constipation Endocrine: Negative for hot flashes. Genitourinary: Negative for difficulty urinating and hematuria. Musculoskeletal: Negative for back pain, flank pain and gait problem. Skin: Negative for rash and wound. Neurological: Negative for gait problem. Hematological: Negative for adenopathy. Does not bruise/bleed easily. Psychiatric/Behavioral: Negative for confusion, decreased concentration, depression and sleep disturbance. PHYSICAL EXAMINATION: VITALS: BP 152/72[recheck[ Pulse 85 Temp (Src) 97.9 (Oral) Resp 18 Wt 103 lb 9.9 oz (47.0kg) SpO2 96% Physical Exam Vitals and nursing note reviewed. Constitutional: General: She is not in acute distress. Appearance: She is not toxic-appearing or diaphoretic. HENT: Head: Normocephalic and atraumatic. Eyes: General: No scleral icterus. Cardiovascular: Rate and Rhythm: Normal rate and regular rhythm. Heart sounds: Normal heart sounds. No murmur heard. Comments: Right sided PICC line intact Pulmonary: Effort: Pulmonary effort is normal. No respiratory distress. Breath sounds: Normal breath sounds. Abdominal: General: There is no distension. Musculoskeletal: General: No swelling. Cervical back: Neck supple. No rigidity. Comments: Right ankle swelling Lymphadenopathy: Cervical: No cervical adenopathy. Skin: Coloration: Skin is not jaundiced or pale. Comments: Dressed right fibula and ankle Neurological: Mental Status: Mental status is at baseline. Psychiatric: Mood and Affect: Mood normal. Behavior: Behavior normal. Thought Content: Thought content normal. Judgment: Judgment normal. LABS: 1. WBC Date Value Ref Range Status 01/02/2025 10.38 3.70 - 11.00 k/uL Final RBC Date Value Ref Range Status 01/02/2025 3.69 (L) 3.90 - 5.20 m/uL Final Hemoglobin Date Value Ref Range Status 01/02/2025 10.5 (L) 11.5 - 15.5 g/dL Final Hematocrit Date Value Ref Range Status 01/02/2025 34.1 (L) 36.0 - 46.0 % Final MCV Date Value Ref Range Status 01/02/2025 92.4 80.0 - 100.0 fL Final MCH Date Value Ref Range Status 01/02/2025 28.5 26.0 - 34.0 pg Final MCHC Date Value Ref Range Status 01/02/2025 30.8 30.5 - 36.0 g/dL Final RDW-CV Date Value Ref Range Status 01/02/2025 17.2 (H) 11.5 - 15.0 % Final Platelet Count Date Value Ref Range Status 01/02/2025 362 150 - 400 k/uL Final MPV Date Value Ref Range Status 01/02/2025 8.7 (L) 9.0 - 12.7 fL Final Abs Neut Date Value Ref Range Status 01/02/2025 8.56 (H) 1.45 - 7.50 k/uL Final Lymphocytes % Date Value Ref Range Status 01/02/2025 7.5 % Final Abs Lymph Date Value Ref Range Status 01/02/2025 0.78 (L) 1.00 - 4.00 k/uL Final Monocytes % Date Value Ref Range Status 01/02/2025 5.9 % Final Abs White Date Value Ref Range Status 01/02/2025 0.61 <0.87 k/uL Final Abs Eosin Date Value Ref Range Status 01/02/2025 0.30 <0.46 k/uL Final Basophils % Date Value Ref Range Status 01/02/2025 0.3 % Final Abs Baso Date Value Ref Range Status 01/02/2025 0.03 <0.11 k/uL Final 2. Glucose Date Value 01/02/2025 276 mg/dL 09/10/2020 158 mg/dL 04/10/2003 159 mg/dl Potassium (mmol/L) Date Value 01/02/2025 5.1 09/10/2020 5.0 Sodium (mmol/L) Date Value 01/02/2025 137 09/10/2020 141 Chloride (mmol/L) Date Value 01/02/2025 98 09/10/2020 105 CO2 (mmol/L) Date Value 01/02/2025 26 09/10/2020 24 Creatinine (mg/dL) Date Value 01/02/2025 0.82 09/10/2020 1.22 BUN (mg/dL) Date Value 01/02/2025 29 09/10/2020 32 Anion Gap (mmol/L) Date Value 01/02/2025 13 09/10/2020 12 Calcium (mg/dL) Date Value 09/10/2020 9.7 Calcium, Total (mg/dL) Date Value 01/02/2025 9.1 Protein, Total (g/dL) Date Value 01/02/2025 5.9 05/19/2020 6.3 Albumin (g/dL) Date Value 01/02/2025 3.5 05/19/2020 4.0 Bilirubin, Total (mg/dL) Date Value 01/02/2025 0.2 05/19/2020 <0.1 Alkaline Phosphatase (U/L) Date Value 01/02/2025 128 05/19/2020 67 AST (U/L) Date Value 01/02/2025 15 05/19/2020 17 ALT (U/L) Date Value 01/02/2025 <5 05/19/2020 12 Grupo Mendez MD CC: Migdalia Ortiz MD (Elements brought forward from my note dated 09/27/2024, have been reviewed and updated where appropriate, and all reflect current assessment and medical decision making during today's encounter, 01/02/2025) documented in this encounter [facility] 2024 Telephone encounter Note Dec 31 labs reviewed, no changes The results were attached to the M drive [facility] 12-27-2024 Note [facility] 12-27-2024 History of Present illness Narrative Date of Visit: 12/26/2024 CHIEF COMPLAINT: Right ankle wound and NEW RT heel pressure ulcer OR right ankle incision and drainage and ulcer debridement 11/27/24 DM II, HgbA1c 10.4 (11/21/24) ADM 11/21/24-12/12/24 HISTORY OF PRESENT ILLNESS: Patient presents to the wound center for first follow up since admission to [facility] 11/21/24 where she underwent RT ankle I&D on 11/27/24, no bone biopsy was obtained, and wound vac applied. She was DC to SNF and has picc line and has follow up with ID scheduled. She has been getting wound vac applications to right ankle. On admission she was also having Left foot pain, GI issues, and abnormal labs and was to have a rheumatology follow up on 01/02/25. She is getting PT, but mostly non ambulatory currently at snf. Denies N/V/F/C/D/SOB/CP/LP HX S/p RT ankle I&D (DOS: 11/27/24) SOCIAL HISTORY: Smoking Status: Never smoker PHYSICAL EXAMINATION: Vascular Exam: BL Foot DP / PT pulses +2/4. CFT less than 3 seconds to digits, skin temp warm to warm from proximal to distal BL Foot Dermatologic Exam: RT ankle lateral incision well adhered proximally and distally with nylon sutures with a central opening full thickness wound measures 1.4 x 0.9 x 0.2cm and post debridement measures 1.5x1.0x0.3cm with 70:30 granular fibrotic base, no surrounding callus, normal post operative edema and erythema, appropriate drainage, no signs of infection, no probe to bone, no malodor, mild serosanguinous drainage into level of FAT/FASCIA TISSUE. mild laura wound maceration RT heel blanchable, no break in skink, AOC LT foot no open wounds or fluctuance. Neurologic Exam: Comments/Other Findings: BL light touch sensation largely intact. Orthopedic Exam: Additional Orthopedic Findings: BL 5/5 muscle strength for all pedal muscle groups in dorsiflexion, plantarflexion, inversion, and eversion. HT noted 2-4 BL. LT foot/ankle without any pain on palpation today. No wounds or ecchymosis or edema noted DIAGNOSIS: Skin ulcer of right ankle with fat layer exposed Pressure ulcer of right ankle, stage 3 Right ankle pain Diabetic autonomic neuropathy associated with type 2 diabetes mellitus Cutaneous abscess of right ankle Left foot pain Pressure injury of right heel, stage 1 PLAN AND TREATMENT: ASSESMENT & PLAN BL Foot and Ankle and Lower extremity Exam and Evaluation carried out with a treatment plan reviewed with the patient and findings discussed with patient including alternatives, benefits, complications and risks. TESTS / IMAGING / X-RAY EXAM/LABS CRP: 20.0 11/21/24 HbA1c 10.4 11/21/24 albumin: 3.7 11/22/24 RT ankle lateral ankle wound first seen by podiatry. Patient states that her wound has been present for 2 days per daughter. Wound measures are: 1.0 x 1.0 x 0.6 cm into level of FAT/FASCIA. 11/21/24 RT lateral ankle wound culture: staph aureus 11/21/24 RT ankle XR: no signs of OM 11/19/24 RT ankle MRI: Nonspecific circumferential subcutaneous/soft tissue edema involving the distal leg and ankle. 11/22/24 PVR: ERIN RT ERIN 0.97, LT ERIN 1.01 11/22/24 RT lateral ankle wound culture: staph aureus 11/27/24 RT lateral ankle post lavage wound culture: staph aureus 12/01/24 left foot and ankle MRI: lateral soft tissue wound at the ankle, no evidence of soft tissue abscess or OM. Wound Care: RT lateral ankle wound: Cleanse with vashe soaked gauze for 3-5 minutes. Rinse well with water. Pat Dry. Apply VAC drape around the wound to protect from black VAC granufoam. Apply saline moistened collagen to wound then black VAC granufoam to wound. Apply alginate to proximal and distal incision sites. Apply more drape to achieve seal. Cut quarter-sized hole in drape apply more black VAC granufoam to dorsal foot overtop of drape to prevent granufoam to touching skin to avoid walking on TRAC pad and cord. Cut quarter sized hole and apply TRAC pad. Please do not put vac disc directly overtop of wound or incision- be sure to bridge to dorsum of foot at area without any bony prominences.VAC @-150mmHg continuous pressure. Apply 4x4, abd, kerlix, and cheng wrap around wound vac padding the track pad cord well. Change 3 x weekly and PRN. If VAC seal leaks or pump fails, remove entire VAC dressing. Cleanse with NS, pat dry. Apply vashe or betadine wet to dry dressing until wound vac can be reapplied. . Planning vac changes every MWF. Weight bearing status: WBAT to BL LE FOR LEFT FOOT PAIN: No open wounds. No fluctuance. Pain was very diffuse without specific point of reproducibility. No erythema. Therefore; no concern of infection to the LEFT foot/ankle at this time. MRI obtained by medicine noted to have findings out lateral soft tissue wound at the ankle. However; clinically there are no open wounds and no history of wounds. Discussed findings further with Radiologist Dr. Fernando- findings may be secondary to thin skin and subcutaneous edema which is consistent with clinical picture. Previously discussed. She relates to minimal left foot pain today FOR RIGHT ANKLE WOUND: Prevoiusly PVR results noted above and discussed with patient and patients daughter. No vascular consult needed at this time Periosteum appeared healthy intra-op, didn't get bone biopsy to prevent seeding infection. Patient tolerating wound vac negative pressure. To continue wound vac at DC. Removed vac dressing and debrided wound today. RIGHT ankle ulcer treated with excisional debridement carried out of the wound with non selective sharp excisional debridement past the dermis into FASCIA level with use of curette and 15 scalpel blade. Devitalized tissue removed. We then flushed out the wound with sterile saline. Patient tolerated debridement without numbing agent. Wound measurements are noted in the objective section. Pt is scheduled for consult with rheumatology 01/02/25. Pt is scheduled for ID follow up on 01/08/25 wound looks great today, no signs infection sutures removed discussed offloading hele and concern for pressure ulcer right heel back in 3 weeks check and likely will dc wound vac at that time Skin ulcer of right ankle with fat layer exposed 707.13 L97.312 Diagnosis Notes Drag & Drop to change diagnosis order Pressure ulcer of right ankle, stage 3 707.06 L89.513 Diagnosis Notes Drag & Drop to change diagnosis order Right ankle pain 719.47 M25.571 Diagnosis Notes Drag & Drop to change diagnosis order Diabetic autonomic neuropathy associated with type 2 diabetes mellitus 250.60 E11.43 Diagnosis Notes Drag & Drop to change diagnosis order Cutaneous abscess of right ankle 682.6 L02.415 Diagnosis Notes Drag & Drop to change diagnosis order Left foot pain 729.5 M79.672 Diagnosis Notes Drag & Drop to change diagnosis order Pressure injury of right heel, stage 1 707.07 L89.611 Nursing Documentation Pertinent Medical History:DM, htn, ckd, hld gerd Wound Etiology according to patient:3 months ago a bruise on Right ankle from a fall, seemed to reddened, xrays completed. Split applied and unsuccessful, became inflamed and infected. Patient arrived via:[facility]/Nursing Facility:[facility] rehab until 01/08 for IV abx Consent captured for debridement per Lien Bang DPM and alex until December 2024. Special Instructions (for example, patient stands at the bedside for exam/dressing): Anticoagulant Therapy:n/a Living Situation (ie... 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 Provider seeing patient:Lien Bang DPM __ WOUND ASSESSMENT: Refer to Provider's Wound Assessment Note VASCULAR ASSESSMENT BY PROVIDER: N/A CHF History:no Smoking:no Education:n/a EDEMA: Right foot:trace Right calf:none Left foot:n/a Left Calf:n/a Other: n/a MEASUREMENTS: in CM Right Calf:25.7cm Right Ankle:18.6 Left Calf:n/a Left Ankle: n/a Length:45 cm WOUND PHOTOGRAPHY: YES x 1, date taken: 12/26/2024 DEBRIDEMENT PROCEDURE BY PROVIDER: Anesthetic Used: Lidogel 2% applied per LIT Viveros Wound # 1 Other procedure: SUTURES REMOVED Specimen collected: n/a WOUND TREATMENT PER MD ORDER: Wounds cleansed by mechanical debridement to allow provider to visualize wound base WOUND # 1 LOCATION: Right ankle (September 2024) 12/26/2023 sutures and wound vac present on arrival Post Debridement Measurements: L:1.5 cm x W:1.0 cm x D: 0.3 cm Cleansed with: VASHE Applied to laura-wound skin:Betadine, skin prep Applied to wound bed: adaptic, ca alginate Covered and secured with: abd, kerlix,tape -heel cup COMPRESSION: N/A DME: [employer] order date DME: [employer] , PH: [phone] SPECIAL NEEDS: Coordination of care N/A Emotional support N/A OR set-up N/A 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 Bang in 3 weeks. Please follow up with your PCP to have your Blood Pressure rechecked Continue IV antibiotics until you see Dr. Chi at the wound center on January 08, 2025. EDUCATION: The patient/family was instructed how to cleanse the wound(s). Visual demonstration on how to apply the dressing with teach back method. Signs & symptoms of infection were reviewed: Increased redness, swelling, pain, green/yellow drainage, fever and/or chills would all need to be evaluated by a Physician. Patient received typed home-going wound care instructions and has expressed intent to comply. Due to the cold and flu season approaching us, if you have any symptoms such as a cough, fever, chills, nausea, vomiting, diarrhea, and/or body aches, please call and reschedule your appointment in the Wound Center. OTHER EDUCATION by RN: Education performed regarding lymphedema/edema: Elevation of extremity above the heart for 30 minutes three times daily and as needed Exercise such as writing the ABC's with your toes in the air, walking and/or calf pumps Wearing compression as ordered by provider Diet controlling of sodium as instructed by provider Use of medication to help control edema. UNIVERSAL PROTOCOL / SAFETY CHECKLIST Procedure to be Performed: Serial Sharp Debridement of Right ankle Sign In:1330 A Moment of CARE was completed. Personnel directly involved with the procedure wore the appropriate PPE (Personal Protective Equipment). Patient/Surrogate Stated/Verified: 1330 PATIENT VERIFIED(optional for EMERGENT procedures): Patient name, Date of , Relevant allergies, and The intended procedure Time Out Communication: 1330 Intended patient and procedure match the source documents. Consent documented and matches the intended procedure. Sign Out:1335 SIGN OUT (optional for EMERGENT procedures): No specimen collected. Current HBOT Status: Active or Complete - see screening below WOUND CENTER HYPERBARIC OXYGEN THERAPY SCREENING 1. Is the patient diabetic? (If No, skip to question 5) Yes 2. Does the patient have a lower extremity wound? Yes 3. Is there exposed/involved tendon or bone? Yes 4. Has the wound been present for 30 days? Yes If Yes to ALL questions above, consult the Hyperbaric Center 5. Has the patient been diagnosed with osteomyelitis? No 6. Has the patient had a previous skin graft or flap at the wound? No 7. Has the patient had or been offered vascular intervention/evaluation? No 8. Does the patient have a wound at an amputation site? No 9. Has the patient had radiation therapy at the site of the problem? No If Yes to ANY of questions 5-9, [facility] Sravanthi Hollis RN/TC documented in this encounter [facility] 12-26-2024 Telephone encounter Note Noted Willie Kaur APRN.CNP [facility] 12-26-2024 Miscellaneous Notes Noted Willie Kaur APRN.CNP Contacted son Nathaniel--advised we do not have POA from pt to disclose health information to him Advised Nathaniel that the rehab team will need to make determination if pt is able to be discharged from rehab, we are unable to make that decision or act on pt behalf until she is discharged. Nathaniel states he will get a POA to act on pt's behalf I wish I could help, but I'm not confident that our office would be able to give appropriate discharge advice. Rehab physical therapy, occupational therapy, nursing, and providers are the best to decide if patient can be safely discharged from rehab. Our office would agree with their recommendations since they are evaluating her medical and physical safety for discharge. Willie Kaur APRN.CNP Patients caregiver demetria tapia calling to have her Snapsheet message she sent below addressed. Yusuf Robles's sons and are in town to make an assessment whether she is able to go home from rehab. Can you talk with them to help with their decision? Please call Nathaniel Medina at [phone]. They are here till Tuesday 12 noon. Thank you. documented in this encounter [facility] 12-26-2024 Telephone encounter Note Contacted son Nathaniel--advised we do not have POA from pt to disclose health information to him Advised Nathaniel that the rehab team will need to make determination if pt is able to be discharged from rehab, we are unable to make that decision or act on pt behalf until she is discharged. Nathaniel states he will get a POA to act on pt's behalf [facility] 12-26-2024 Telephone encounter Note Dec 24 labs reviewed, no changes The results were attached to the M drive [facility] 12-26-2024 Telephone encounter Note Addressed in other encounter. Willie Kaur APRN.CNP [facility] 12-26-2024 Miscellaneous Notes Addressed in other encounter. Willie Kaur APRN.[employer] [place] documented in this encounter [facility] 12-26-2024 Instructions Sravanthi Hollis RN - 12/26/2024 1:09 PM EST WOUND CARE INSTRUCTIONS- Yusuf Medina Wound location: Right ankle [facility] -PLEASE CONTINUE WOUND VAC PREVIOUS ON THE SETTING OF 150MMhG SUCTION for approximately 1-2 weeks longer Keep your Wound Vac dressing dry and intact until your next dressing change. If your Wound Vac fails, please remember that you have 2 hours to get it running. At the 2 hour simone please remove the entire dressing, wound packing, and all of the laura-wound dressing and begin the alternate dressing as written below. Wound vac settings 150 mmhg negative pressure High intensity Continuous suction PLEASE USE ALTERNATE DRESSING IF WOUND VAC IS NOT WORKING FOR GREATER THAN 2 HOURS. ALTERNATE DRESSING: -Gather supplies -Place down a clean work surface such as new paper towel or newly cleaned towel -Clean all metal instruments with rubbing alcohol before and after each use. - Plastic garbage bag for old dressing - Wash your hands with soap and water before and after wound care. - Apply a vashe' moistened 4x4 gauze soak for 5-10 minutes. Pat dry. - Apply adaptic (screen like material) and calcium alginate (felt material) to the wound base. - Cover with abd pad, gauze, kerlix. - Secure dressing with tape - Change your dressing daily or as needed to maintain a clean, dry and intact dressing. Regarding lymphedema/edema: Elevation of extremity above the heart for 30 minutes three times daily and as needed Exercise such as writing the ABC's with your toes in the air, walking and/or calf pumps Wearing compression as ordered by provider Diet controlling of sodium as instructed by provider Use of medication to help control edema. To give your wound the best chance to heal: - Eat three balanced meals daily focusing on the protein - Control swelling by elevating the extremity above your heart - exercise the extremity - Control your blood sugar. Keep blood sugar less than 200 - Complete your wound care instructions - Vitamin C 500 mg twice daily - Multiple Vitamin Daily - Drink a protein shake daily - Smoking decreases the amount of oxygen delivered to tissue and can impair wound healing and/or increased risk of infection Report any of the following changes to the Wound Center at [phone] or go to the Emergency Department: Fever or chills Increased drainage Green or yellow drainage Foul odor Increased pain Hardness around the wound Redness, warmth or swelling of the surrounding tissue Color change to the wound When contacting the wound center at the ([phone]): Leave a message that includes your full name, birthday, phone number who your provider is and the reason for your call. During clinic hours we are with patients. A nurse will return your call within 24-48 hours in the order it was received. The wound center is closed weekends and on major holidays. If you call at that time we will return your call in the order that the calls were received at the soonest opportunity. If you have any signs of infection or need immediate attention then please go to the emergency department to be evaluated Thank you for your understanding and cooperation. Plan: Return to the Wound Center to see Dr. Bang in 3 weeks. Please follow up with your PCP to have your Blood Pressure rechecked Continue IV antibiotics until you see Dr. Chi at the wound center on January 08, 2025. Continue aggressive nutritional support to assist wound healing CAT Scans & MRI need to be scheduled through Central Scheduling. Call [phone].(If applicable) Please be aware that the Covid19 exposure questions will be asked as you enter the hospital and as you arrive to each area. Thank you for your patience and understanding as we attempt to protect our patients during this difficult time. Lein Bang DPM/fhm/tc documented in this encounter [facility] 12-26-2024 Note [facility] 12-26-2024 Telephone encounter Note I wish I could help, but I'm not confident that our office would be able to give appropriate discharge advice. Rehab physical therapy, occupational therapy, nursing, and providers are the best to decide if patient can be safely discharged from rehab. Our office would agree with their recommendations since they are evaluating her medical and physical safety for discharge. Willie Kaur APRN.DRAKE [facility] 12-26-2024 Telephone encounter Note Spoke to the nurse, naveen Cartwright [facility] 12-26-2024 Telephone encounter Note Patients caregiver demetria tapia calling to have her Snapsheet message she sent below addressed. Yusuf Robles's sons and are in town to make an assessment whether she is able to go home from rehab. Can you talk with them to help with their decision? Please call Nathaniel Medina at [phone]. They are here till Tuesday 12 noon. Thank you. [facility] Work Phone: 12-25-2024 Telephone encounter Note The following approved medication requests have been transmitted electronically. Requested Prescriptions Signed Prescriptions Disp Refills amLODIPine (NORVASC) 5 mg tablet 90 tablet 3 Sig: TAKE 1 TABLET BY MOUTH ONCE DAILY Authorizing Provider: WILLIE KAUR APRN.BAG VALVER [facility] 12-25-2024 Miscellaneous Notes The following approved medication requests have been transmitted electronically. Requested Prescriptions Signed Prescriptions Disp Refills amLODIPine (NORVASC) 5 mg tablet 90 tablet 3 Sig: TAKE 1 TABLET BY MOUTH ONCE DAILY Authorizing Provider: WILLIE KAUR APRN.CNP Patient has been identified by name and date of : Yes Last office visit in this department: 09/13/2024 RX INSTRUCTIONS: Patient aware RX will be sent to pharmacy. No need to notify patient. Patient phones requesting refills as follows: Requested Prescriptions Pending Prescriptions Disp Refills amLODIPine (NORVASC) 5 mg tablet [Pharmacy Med Name: amLODIPine Besylate 5 MG Oral Tablet] 90 tablet 3 Sig: TAKE 1 TABLET BY MOUTH ONCE DAILY Please review and advise. Aditi Phan LPN documented in this encounter [facility] 12-25-2024 Telephone encounter Note Patient has been identified by name and date of : Yes Last office visit in this department: 09/13/2024 RX INSTRUCTIONS: Patient aware RX will be sent to pharmacy. No need to notify patient. Patient phones requesting refills as follows: Requested Prescriptions Pending Prescriptions Disp Refills amLODIPine (NORVASC) 5 mg tablet [Pharmacy Med Name: amLODIPine Besylate 5 MG Oral Tablet] 90 tablet 3 Sig: TAKE 1 TABLET BY MOUTH ONCE DAILY Please review and advise. Aditi Phan LPN [facility] 12-20-2024 Telephone encounter Note Dec 17 labs wnl The differential wasn't done on the cbc The GENERAL OFFICE WORKER has added it on moving forward The results were attached to the M drive [facility] 12-20-2024 Telephone encounter Note Spoke to the GENERAL OFFICE WORKER, labs requested [facility] 12-13-2024 Telephone encounter Note Lilo from [facility] called [phone] to schedule the follow up, I [facility] and 01/08 for the schedule date. Delfina Elias [facility] 12-11-2024 Note [facility] 12-10-2024 Telephone encounter Note Yusuf is still inpt at [facility] She will be d/c to [facility] [phone] [facility] 12-10-2024 Note [facility] 12-10-2024 Note [facility] 12-09-2024 Note [facility] 12-09-2024 Note [facility] 12-08-2024 Note [facility] 12-07-2024 Note [facility] 12-07-2024 Note [facility] 12-06-2024 Note [facility] 12-05-2024 Note [facility] 12-04-2024 Note [facility] 12-03-2024 Note [facility] 12-02-2024 Note [facility] 12-01-2024 Note [facility] 12-01-2024 Note [facility] 12-01-2024 Note [facility] 11-30-2024 Note [facility] 11-29-2024 Note [facility] 11-29-2024 Telephone encounter Note Summary: COPAT ACTION-FOR IDC USE ONLY Images from the original note were not included. 11/28/2024 8:48 PM Pierce Cih MA PROVIDER ADULT [id number] Patient Info Patient Name Sex Yusuf Medina ([id number]) Female 1935 Encounter Notes Progress Notes by Pierce Chi MD, encounter date 11/28/2024: Progress Notes [facility] Parenteral Antimicrobial Therapy (OPAT) Start Form Patient Info Patient MRN Patient Name Address Date of [id number] Yusuf Medina [address] [facility] [id number] 1935 Start Date 11/28/2024 Physician Group [facility] Diagnosis Group Diagnosis Osteoarticular: Osteomyelitis Micro-organism STAPHYLOCOCCUS AUREUS IV Antibiotics Antibiotic Dose Frequency Stop Date Cefazolin 2 grams every 8 hours 01/08/2025 Lab Monitoring Plan Labs Frequency While on CBC/diff Creatinine every Tuesday every Tuesday Cefazolin Cefazolin OPAT Pharmacy Consult Yes Cath Care Protocol Flush IV line with 10 mL of normal saline (0.9%) before and after each dose of medication or at a minimum once daily. Flush IV line with 10-20 mL of normal saline (0.9%) after lab draw. Presumed osteomyelitis of the right fibula RT lateral ankle wound infection, into level of FAT FASCIA due to SA RT ankle pressure ulcer, (POA stage 3) RT ankle cellulitis RT ankle pain Physical debility T2DM CKD Stage 3a Esophageal reflux Essential hypertension Hyperlipidemia associated with type 2 diabetes mellitus CKD stage 3 due to type 2 diabetes mellitus Diabetes mellitus, non-insulin dependent (NIDDM or type II) CATIE Labs may be drawn on Tuesday if Tuesday is a holiday. Follow up Provider Follow up date/time Appointment type Pierce Chi MD 01/08/2025 In-person Provider Monitoring Treatment Course Pierce Chi MD Address [address] [place], [place] [id number] Prescribing Provider's signature - electronically signed by Pierce Chi MD on 11/28/24 at 8:50 PM [facility] 11-29-2024 Note [facility] 11-28-2024 Note [facility] 11-28-2024 History of Present illness Narrative Images from the original note were not included. 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 Flush IV line with 10-20 mL of normal saline (0.9%) after lab draw. Presumed osteomyelitis of the right fibula RT lateral ankle wound infection, into level of FAT FASCIA due to SA RT ankle pressure ulcer, (POA stage 3) RT ankle cellulitis RT ankle pain Physical debility T2DM CKD Stage 3a Esophageal reflux Essential hypertension Hyperlipidemia associated with type 2 diabetes mellitus CKD stage 3 due to type 2 diabetes mellitus Diabetes mellitus, non-insulin dependent (NIDDM or type II) CATIE Labs may be drawn on Tuesday if Tuesday is a holiday. Follow up Provider Follow up date/time Appointment type Pierce Chi MD 01/08/2025 In-person Provider Monitoring Treatment Course Pierce Chi MD Address [address] [place] [id number] Prescribing Provider's signature - electronically signed by Pierce Chi MD on 11/28/24 at 8:50 PM documented in this encounter [facility] 11-28-2024 Note [facility] 11-28-2024 Note [facility] 11-27-2024 Telephone encounter Note The following approved medication requests have been transmitted electronically. Requested Prescriptions Signed Prescriptions Disp Refills metFORMIN (GLUCOPHAGE) 850 mg tablet 180 tablet 3 Sig: TAKE 1 TABLET BY MOUTH TWICE DAILY WITH MEALS Authorizing Provider: WILLIE KAUR APRN.BAG VALVER [facility] 11-27-2024 Miscellaneous Notes The following approved medication requests have been transmitted electronically. Requested Prescriptions Signed Prescriptions Disp Refills metFORMIN (GLUCOPHAGE) 850 mg tablet 180 tablet 3 Sig: TAKE 1 TABLET BY MOUTH TWICE DAILY WITH MEALS Authorizing Provider: WILLIE KAUR APRN.BAG [place]VER Patient has been identified by name and date of : Yes Last office visit in this department: 10/29/2024 RX INSTRUCTIONS: Patient aware RX will be sent to pharmacy. No need to notify patient. Patient phones requesting refills as follows: Requested Prescriptions Pending Prescriptions Disp Refills metFORMIN (GLUCOPHAGE) 850 mg tablet [Pharmacy Med Name: metFORMIN HCl 850 MG Oral Tablet] 180 tablet 3 Sig: TAKE 1 TABLET BY MOUTH TWICE DAILY WITH MEALS Please review and advise. Martina Tucker MA documented in this encounter [facility] 11-27-2024 Note [facility] 11-27-2024 Telephone encounter Note Patient has been identified by name and date of : Yes Last office visit in this department: 10/29/2024 RX INSTRUCTIONS: Patient aware RX will be sent to pharmacy. No need to notify patient. Patient phones requesting refills as follows: Requested Prescriptions Pending Prescriptions Disp Refills metFORMIN (GLUCOPHAGE) 850 mg tablet [Pharmacy Med Name: metFORMIN HCl 850 MG Oral Tablet] 180 tablet 3 Sig: TAKE 1 TABLET BY MOUTH TWICE DAILY WITH MEALS Please review and advise. Martina Tucker MA [facility] 11-26-[address] Mendez reviewed labs from [facility]. Dr. Mendez recommended for patient to be seen around mid Dec 2024 as hem/onc follow-up. Grupo Mendez MD November 26, 2024 5:33 PM [facility] Work Phone: 11-26-[address] Mendez reviewed labs from [facility]. Dr. Mendez recommended for patient to be seen around mid Dec 2024 as hem/onc follow-up. 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 Pt is still inpatient. When she is discharged she will be sent to a rehab and will not be able to make appts. Any time soon. Please advise for further requirements. documented in this encounter [facility] 11-26-2024 Note [facility] 11-26-2024 Telephone encounter Note Spoke w/ pt Demetria alvarez. Pt is still inpatient. When she is discharged she will be sent to a rehab and will not be able to make appts. Any time soon. Please advise for further requirements. [facility] 11-26-2024 Note [facility] 11-25-2024 Note [facility] 11-24-2024 Note [facility] 11-23-2024 Note [facility] 11-23-2024 Note [facility] 11-22-2024 Note [facility] 11-21-2024 Note [facility] 11-21-2024 Telephone encounter Note Currently has appointment in Rheumatology 01/04/25 to evaluate for inflammatory arthritis. There was a Hematology appointment scheduled 12/03/24, but rescheduled by family due to location. MRI ankle 11/19/24 ordered by Orthopedics. Patient sent My Chart message to Orthopedics 11/20/24. I reminded patient/family that My Chart can take up to 72 business hours for response. Willie Kaur APRN.DRAKE [facility] 11-21-2024 Miscellaneous Notes Currently has appointment in Rheumatology 01/04/25 to evaluate for inflammatory arthritis. There was a Hematology appointment scheduled 12/03/24, but rescheduled by family due to location. MRI ankle 11/19/24 ordered by Orthopedics. Patient sent My Chart message to Orthopedics 11/20/24. I reminded patient/family that My Chart can take up to 72 business hours for response. Willie Kaur APRN.BAG VALVER documented in this encounter [facility] 11-19-2024 History of Present illness Narrative Radiology Service Progress Note PATIENT NAME: Yusuf Medina DATE OF SERVICE: November 19, 2024 TIME: 10:07 AM PATIENT IDENTITY VERIFICATION COMPLETED USING TWO (2) IDENTIFIERS: Name and Date of confirmed by patient verbally. FALL SCREENING: Has the patient had 2 falls in the last year or 1 fall with injury or currently using an Ambulatory Assistive Device (Walker, Cane, Wheelchair, Crutches, etc.)? Yes, Patient High Risk for Falls What interventions were put in place to prevent falls during this visit? Instructed Patient to Call for Help if Needed, Offered Assistance with Transfers/Clothing, Instructed Patient to Remain Seated (Not on Exam Table) Until Exam, and Increased Observations by Caregivers PATIENT GENDER DATA: Female. status: : No status: NO. PATIENT RELEVANT IMPLANT DATA REVIEWED: Yes PATIENT PRESENTS WITH AN IMPLANTABLE OR ATTACHED CIGARETTE MACHINES MECHANIC: No RADIOLOGY DEPARTMENT: MR; Exam(s) Completed: Lower MSK: Ankle/Hind Foot, right PERIPHERAL IV DATA: Not applicable SIGNED BY: FRANCIS Tierney November 19, 2024 10:07 AM documented in this encounter [facility] 11-19-2024 Note HNO ID: [id number] Author: YAZ MAYFIELD MRI Tech Service: Radiology Author Type: Car Designer Type: Progress Notes Filed: 11/19/2024 10:08 Note Text: Radiology Service Progress Note PATIENT NAME: Yusuf Medina DATE OF SERVICE: November 19, 2024 TIME: 10:07 AM PATIENT IDENTITY VERIFICATION COMPLETED USING TWO (2) IDENTIFIERS: Name and Date of confirmed by patient verbally. FALL SCREENING: Has the patient had 2 falls in the last year or 1 fall with injury or currently using an Ambulatory Assistive Device (Walker, Cane, Wheelchair, Crutches, etc.)? Yes, Patient High Risk for Falls What interventions were put in place to prevent falls during this visit? Instructed Patient to Call for Help if Needed, Offered Assistance with Transfers/Clothing, Instructed Patient to Remain Seated (Not on Exam Table) Until Exam, and Increased Observations by Caregivers PATIENT GENDER DATA: Female. status: : No status: NO. PATIENT RELEVANT IMPLANT DATA REVIEWED: Yes PATIENT PRESENTS WITH AN IMPLANTABLE OR ATTACHED CIGARETTE MACHINES MECHANIC: No RADIOLOGY DEPARTMENT: MR; Exam(s) Completed: Lower MSK: Ankle/Hind Foot, right PERIPHERAL IV DATA: Not applicable SIGNED BY: FRANCIS Tierney November 19, 2024 10:07 AM [facility] 11-06-2024 Telephone encounter Note Patient took a sooner appt in November. [facility] 11-06-2024 Miscellaneous Notes Patient took a sooner appt in November. Currently has Rheumatology scheduled 01/04/25. Are there any sooner appointments and would family be interested? She has been seeing Hematology and they think that her abnormal blood work may have a Rheumatology cause. Willie Kaur APRN.BAG VALVER documented in this encounter [facility] 11-06-2024 Telephone encounter Note Currently has Rheumatology scheduled 01/04/25. Are there any sooner appointments and would family be interested? She has been seeing Hematology and they think that her abnormal blood work may have a Rheumatology cause. Willie Kaur APRN.BAG VALVER [facility] 11-05-2024 Telephone encounter Note Patient has secondary leukocytosis in the setting of highly elevated sed rate, RUBEN 1:320 titer, positive [employer] Hematology work-up was essentially negative highlighting concern for rheumatological disease. Patient is leaving to [place] for 2 weeks I will schedule lab on 11/21/2024 and see her on 11/22/2024 at 9:10 AM for iron deficiency (this is separate issue). Renetta with care coordination will kindly help with arranging lab and follow-up as above. Patient and family aware of my plan. Grupo Mendez MD November 05, 2024 6:55 PM [facility] 11-05-2024 Miscellaneous Notes Patient has secondary leukocytosis in the setting of highly elevated sed rate, RUBEN 1:320 titer, positive [employer] REPORTER Hematology work-up was essentially negative highlighting concern for rheumatological disease. Patient is leaving to [place] for 2 weeks I will schedule lab on 11/21/2024 and see her on 11/22/2024 at 9:10 AM for iron deficiency (this is separate issue). Renetta with care coordination will kindly help with arranging lab and follow-up as above. Patient and family aware of my plan. Grupo Mendez MD November 05, 2024 6:55 PM documented in this encounter [facility] 11-01-2024 Note Addended by: SIMONE AGUILAR on: 11/01/2024 03:34 PM Modules accepted: Orders [facility] 11-01-2024 Miscellaneous Notes Addended by: SIMONE KEVIN on: 11/01/2024 03:34 PM Modules accepted: Orders documented in this encounter [facility] 11-01-2024 Note HNO ID: [id number] Author: SIMONE KEVIN MD Service: ? Author Type: Physician Type: Progress Notes Filed: 11/01/2024 14:19 Note Text: November 01, 2024 HPI: Yusuf Medina is following up for right ankle. Reports residual swelling and pain. Pain Descriptors: Duration: chronic Severity: moderate Quality: ache Location: foot and ankle Context: worse with activity and dependence Modifying Factors: improved with rest and elevation Supporting Subjective Information Below: Estimated body mass index is 20.67 kg/m? as calculated from the following: Height as of 03/07/23: 152.4 cm (5'). Weight as of 10/29/24: 48 kg (105 lb 13.1 oz). Past Medical History 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/25/2017 CKD (chronic kidney disease) 05/11/2016 Essential hypertension, benign Hyperlipidemia LDL goal < 100 02/12/2014 Intractable low back pain 08/25/2015 Osteoarthrosis, unspecified whether generalized or localized, other specified sites Left hip Plantar fasciitis 05/25/2017 Primary insomnia 05/25/2017 Renal dysfunction Type II or unspecified type diabetes mellitus without mention of complication, not stated as uncontrolled Surgical History: PAST SURGICAL HISTORY Procedure Laterality Date ARTHRP ACETBLR/PROX FEM PROSTC AGRFT/ALGRFT 11/14/2011 Hip replacement, total, L REMV CATARACT EXTRACAP,INSERT LENS Bilateral 2020 [facility] Family History: FAMILY HISTORY Problem Relation Age of Onset None Brother None Sister None Brother Medications: Current Outpatient Medications Medication Sig meloxicam (MOBIC) 15 mg tablet TAKE 1 TABLET BY MOUTH ONCE DAILY NEEDED FOR PAIN. DO NOT COMBINE WITH DICLOFENAC GEL traZODone (DESYREL) 50 mg tablet Take 1 tablet by mouth at bedtime as needed for sedation. blood sugar diagnostic (Join The Wellness Team ULTRA TEST) test strip Test blood sugar once daily glipiZIDE (GLUCOTROL XL) 2.5 mg 24 hr tablet TAKE 1 TABLET BY MOUTH ONCE DAILY lisinopril-hydroCHLOROthiazide (ZESTORETIC) 20-25 mg per tablet Take 1 tablet by mouth once daily. pioglitazone (ACTOS) 45 mg tablet Take 1 tablet by mouth once daily. pravastatin (PRAVACHOL) 20 mg tablet Take 1 tablet by mouth once daily. lansoprazole (PREVACID) 30 mg capsule Take 1 capsule by mouth once daily. amLODIPine (NORVASC) 5 mg tablet TAKE 1 TABLET BY MOUTH ONCE DAILY metFORMIN (GLUCOPHAGE) 850 mg tablet Take 1 tablet by mouth two times a day with meals. diclofenac (VOLTAREN) 1 % topical gel Apply 2 g to affected area four times daily as needed. No current facility-administered medications for this visit. Allergies: Patient has no known allergies. Review Of Systems GENERAL:Negative for malaise, significant weight loss and fever HEENT:Negative for frequent or significant headaches, significant changes in vision or vision problems, significant ear problems or hearing loss, nasal discharge or nose bleeds and sore throat, difficulty swallowing, mouth lesions NECK:Negative for lumps, goiter, pain and significant neck swelling RESPIRATORY: Negative for cough, wheezing and shortness of breath CARDIOVASCULAR: Negative for chest pain, leg swelling and palpitations GASTROINTESTINAL: Negative for abdominal discomfort, blood in stools or black stools and change in bowel habits GENITOURINARY: Negative for dysuria, frequency and incontinence MUSCULOSKELETAL: Negative for joint pain or swelling, back pain, and muscle pain. NEUROLOGIC:Negative for focal numbness or weakness, headaches and dizziness. SKIN:Negative for lesions, rash, and itching. PSYCHIATRIC: Negative for sleep disturbance, mood disorder and recent psychosocial stressors. HEMATOLOGIC/LYMPHATIC/IMMUNOLOGIC: Negative for prolonged bleeding, bruising easily, and swollen nodes. ENDOCRINE: Negative for cold or heat intolerance, polyuria, polydipsia and goiter. Physical Exam: Basic physical examination reveals the patient to be in no acute distress. The patient is alert and oriented x 3 Mood and affect are appropriate. Head is atraumatic, normocephalic. Neck ROM grossly intact. Mucous membranes are moist. Eyes, ears, and nose are normal in appearance. Hearing is grossly intact. Breathing is unlabored with grossly normal chest motion. Limited Upper Extremity Exam: Shoulders with grossly intact ROM and strength, no obvious deformity. Elbows with grossly intact ROM and strength, no obvious deformity. Hand and wrist with grossly intact ROM and strength, no obvious deformity. Focused orthopaedic examination reveals the following: Skin intact without lesions. Diffuse swelling about ankle, mostly lateral Imaging: XR with marked osteopenia, no acute findings. Assessment and Plan: Right ankle pain and swelling I strongly suspect inflammatory arthritic condition as she has multiple positive labs including RUBEN, elevated CRP and WBC I have ordered MR to better assess her anatomy B (more content not included)... [facility] 11-01-2024 History of Present illness Narrative November 01, 2024 HPI: Yusuf Medina is following up for right ankle. Reports residual swelling and pain. Pain Descriptors: Duration: chronic Severity: moderate Quality: ache Location: foot and ankle Context: worse with activity and dependence Modifying Factors: improved with rest and elevation Supporting Subjective Information Below: Estimated body mass index is 20.67 kg/m as calculated from the following: Height as of 03/07/23: 152.4 cm (5'). Weight as of 10/29/24: 48 kg (105 lb 13.1 oz). Past Medical History 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/25/2017 CKD (chronic kidney disease) 05/11/2016 Essential hypertension, benign Hyperlipidemia LDL goal < 100 02/12/2014 Intractable low back pain 08/25/2015 Osteoarthrosis, unspecified whether generalized or localized, other specified sites Left hip Plantar fasciitis 05/25/2017 Primary insomnia 05/25/2017 Renal dysfunction Type II or unspecified type diabetes mellitus without mention of complication, not stated as uncontrolled Surgical History: PAST SURGICAL HISTORY Procedure Laterality Date ARTHRP ACETBLR/PROX FEM PROSTC AGRFT/ALGRFT 11/14/2011 Hip replacement, total, L REMV CATARACT EXTRACAP,INSERT LENS Bilateral 2020 [facility] Family History: FAMILY HISTORY Problem Relation Age of Onset None Brother None Sister None Brother Medications: Current Outpatient Medications Medication Sig meloxicam (MOBIC) 15 mg tablet TAKE 1 TABLET BY MOUTH ONCE DAILY NEEDED FOR PAIN. DO NOT COMBINE WITH DICLOFENAC GEL traZODone (DESYREL) 50 mg tablet Take 1 tablet by mouth at bedtime as needed for sedation. blood sugar diagnostic (Join The Wellness Team ULTRA TEST) test strip Test blood sugar once daily glipiZIDE (GLUCOTROL XL) 2.5 mg 24 hr tablet TAKE 1 TABLET BY MOUTH ONCE DAILY lisinopril-hydroCHLOROthiazide (ZESTORETIC) 20-25 mg per tablet Take 1 tablet by mouth once daily. pioglitazone (ACTOS) 45 mg tablet Take 1 tablet by mouth once daily. pravastatin (PRAVACHOL) 20 mg tablet Take 1 tablet by mouth once daily. lansoprazole (PREVACID) 30 mg capsule Take 1 capsule by mouth once daily. amLODIPine (NORVASC) 5 mg tablet TAKE 1 TABLET BY MOUTH ONCE DAILY metFORMIN (GLUCOPHAGE) 850 mg tablet Take 1 tablet by mouth two times a day with meals. diclofenac (VOLTAREN) 1 % topical gel Apply 2 g to affected area four times daily as needed. No current facility-administered medications for this visit. Allergies: Patient has no known allergies. Review Of Systems GENERAL:Negative for malaise, significant weight loss and fever HEENT:Negative for frequent or significant headaches, significant changes in vision or vision problems, significant ear problems or hearing loss, nasal discharge or nose bleeds and sore throat, difficulty swallowing, mouth lesions NECK:Negative for lumps, goiter, pain and significant neck swelling RESPIRATORY: Negative for cough, wheezing and shortness of breath CARDIOVASCULAR: Negative for chest pain, leg swelling and palpitations GASTROINTESTINAL: Negative for abdominal discomfort, blood in stools or black stools and change in bowel habits GENITOURINARY: Negative for dysuria, frequency and incontinence MUSCULOSKELETAL: Negative for joint pain or swelling, back pain, and muscle pain. NEUROLOGIC:Negative for focal numbness or weakness, headaches and dizziness. SKIN:Negative for lesions, rash, and itching. PSYCHIATRIC: Negative for sleep disturbance, mood disorder and recent psychosocial stressors. HEMATOLOGIC/LYMPHATIC/IMMUNOLOGIC: Negative for prolonged bleeding, bruising easily, and swollen nodes. ENDOCRINE: Negative for cold or heat intolerance, polyuria, polydipsia and goiter. Physical Exam: Basic physical examination reveals the patient to be in no acute distress. The patient is alert and oriented x 3 Mood and affect are appropriate. Head is atraumatic, normocephalic. Neck ROM grossly intact. Mucous membranes are moist. Eyes, ears, and nose are normal in appearance. Hearing is grossly intact. Breathing is unlabored with grossly normal chest motion. Limited Upper Extremity Exam: Shoulders with grossly intact ROM and strength, no obvious deformity. Elbows with grossly intact ROM and strength, no obvious deformity. Hand and wrist with grossly intact ROM and strength, no obvious deformity. Focused orthopaedic examination reveals the following: Skin intact without lesions. Diffuse swelling about ankle, mostly lateral Imaging: XR with marked osteopenia, no acute findings. Assessment and Plan: Right ankle pain and swelling I strongly suspect inflammatory arthritic condition as she has multiple positive labs including RUBEN, elevated CRP and WBC I have ordered MR to better assess her anatomy But she will likely need formal Rheumatologic assessment. Return to clinic: sp mR X-Ray's at next visit: No PCP: [place] [address] [facility] [id number] FELLOW / RESIDENT: No fellow or resident assisted in this office visit. Simone Kevin MD documented in this encounter [facility] 10-29-2024 Note HNO ID: [id number] Author: AB BENSON MD Service: ? Author Type: Physician Type: Progress Notes Filed: 11/04/2024 19:29 Note Text: This note was created using KelBilletriter. Subjective Yusuf Medina is a 88 year old female About 6 weeks ago - she was taken to get fracture ruled out. Her foot was swollen at that time as well. No Xray at that time Per caregiver - that there is more pain now. No drainage. No brace for few days now. The history is provided by the patient and a caregiver. Review of Systems Constitutional: Negative for fever. Respiratory: Negative for cough and wheezing. Gastrointestinal: Negative for abdominal pain, diarrhea and nausea. Objective BP 159/72 Pulse 66 Temp 37.4 ?C (99.3 ?F) Wt 48 kg (105 lb 13.1 oz) SpO2 97% BMI 20.67 kg/m? Physical Exam Vitals reviewed. Constitutional: General: She is not in acute distress. Appearance: Normal appearance. HENT: Head: Normocephalic. Eyes: General: Right eye: No discharge. Left eye: No discharge. Pupils: Pupils are equal, round, and reactive to light. Cardiovascular: Rate and Rhythm: Normal rate and regular rhythm. Heart sounds: No murmur heard. No gallop. Pulmonary: Effort: Pulmonary effort is normal. No respiratory distress. Breath sounds: No stridor. No wheezing, rhonchi or rales. Abdominal: Palpations: Abdomen is soft. Musculoskeletal: Right lower leg: No edema. Left lower leg: No edema. Feet: Feet: Comments: No surrounding erythema No fluctuance. Neurological: Mental Status: She is alert. Psychiatric: Mood and Affect: Mood normal. Behavior: Behavior normal. Thought Content: Thought content normal. ASSESSMENT/PLAN: 1. Chronic pain of right ankle - ICD9: 719.47, 338.29, ICD10: M25.571, G89.29 No signs of cellulitis. Healing wound at the indicated location Advised to follow up with specialist. Patient and family voiced understanding. Ab Benson MD [facility] 10-29-2024 History of Present illness Narrative Images from the original note were not included. This note was created using KelBillet[employer]. Subjective Yusuf Medina is a 88 year old female About 6 weeks ago - she was taken to get fracture ruled out. Her foot was swollen at that time as well. No Xray at that time Per caregiver - that there is more pain now. No drainage. No brace for few days now. The history is provided by the patient and a caregiver. Review of Systems Constitutional: Negative for fever. Respiratory: Negative for cough and wheezing. Gastrointestinal: Negative for abdominal pain, diarrhea and nausea. Objective BP 159/72 Pulse 66 Temp 37.4 C (99.3 F) Wt 48 kg (105 lb 13.1 oz) SpO2 97% BMI 20.67 kg/m Physical Exam Vitals reviewed. Constitutional: General: She is not in acute distress. Appearance: Normal appearance. HENT: Head: Normocephalic. Eyes: General: Right eye: No discharge. Left eye: No discharge. Pupils: Pupils are equal, round, and reactive to light. Cardiovascular: Rate and Rhythm: Normal rate and regular rhythm. Heart sounds: No murmur heard. No gallop. Pulmonary: Effort: Pulmonary effort is normal. No respiratory distress. Breath sounds: No stridor. No wheezing, rhonchi or rales. Abdominal: Palpations: Abdomen is soft. Musculoskeletal: Right lower leg: No edema. Left lower leg: No edema. Feet: Feet: Comments: No surrounding erythema No fluctuance. Neurological: Mental Status: She is alert. Psychiatric: Mood and Affect: Mood normal. Behavior: Behavior normal. Thought Content: Thought content normal. ASSESSMENT/PLAN: 1. Chronic pain of right ankle - ICD9: 719.47, 338.29, ICD10: M25.571, G89.29 No signs of cellulitis. Healing wound at the indicated location Advised to follow up with specialist. Patient and family voiced understanding. Ab Benson MD documented in this encounter [facility] 10-12-2024 Telephone encounter Note The following approved medication requests have been transmitted electronically. Requested Prescriptions Signed Prescriptions Disp Refills meloxicam (MOBIC) 15 mg tablet 90 tablet 3 Sig: TAKE 1 TABLET BY MOUTH ONCE DAILY NEEDED FOR PAIN. DO NOT COMBINE WITH DICLOFENAC GEL Authorizing Provider: WILLIE KAUR APRN.[facility] 10-12-2024 Miscellaneous Notes The following approved medication requests have been transmitted electronically. Requested Prescriptions Signed Prescriptions Disp Refills meloxicam (MOBIC) 15 mg tablet 90 tablet 3 Sig: TAKE 1 TABLET BY MOUTH ONCE DAILY NEEDED FOR PAIN. DO NOT COMBINE WITH DICLOFENAC GEL Authorizing Provider: WILLIE KAUR APRN.[facility] [facility] Patient has been identified by name and date of : Yes Last office visit in this department: 09/13/2024 RX INSTRUCTIONS: Patient aware RX will be sent to pharmacy. No need to notify patient. Patient phones requesting refills as follows: Requested Prescriptions Pending Prescriptions Disp Refills meloxicam (MOBIC) 15 mg tablet [Pharmacy Med Name: Meloxicam 15 MG Oral Tablet] 90 tablet 3 Sig: TAKE 1 TABLET BY MOUTH ONCE DAILY NEEDED FOR PAIN. DO NOT COMBINE WITH DICLOFENAC GEL Please review and advise. Martina Tucker MA documented in this encounter [facility] 10-12-2024 Telephone encounter Note Patient has been identified by name and date of : Yes Last office visit in this department: 09/13/2024 RX INSTRUCTIONS: Patient aware RX will be sent to pharmacy. No need to notify patient. Patient phones requesting refills as follows: Requested Prescriptions Pending Prescriptions Disp Refills meloxicam (MOBIC) 15 mg tablet [Pharmacy Med Name: Meloxicam 15 MG Oral Tablet] 90 tablet 3 Sig: TAKE 1 TABLET BY MOUTH ONCE DAILY NEEDED FOR PAIN. DO NOT COMBINE WITH DICLOFENAC GEL Please review and advise. Martina Tucker MA [facility] 09-20-2024 History of Present illness Narrative September 20, 2024 HPI: Yusuf Medina is a 88 yo female with right ankle swelling. Reports fall 2 months ago. Localizes pain to lateral ankle. Denies posterior heel pain. Pain Descriptors: Duration: 2 months Severity: moderate Quality: ache Location: foot, ankle Context: worse with activity and dependent position Modifying Factors: improved with rest and elevation Supporting Subjective Information Below: Estimated body mass index is 22.48 kg/m as calculated from the following: Height as of 03/07/23: 152.4 cm (5'). Weight as of 09/17/24: 52.2 kg (115 lb 1.3 oz). Past Medical History 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/25/2017 CKD (chronic kidney disease) 05/11/2016 Essential hypertension, benign Hyperlipidemia LDL goal < 100 02/12/2014 Intractable low back pain 08/25/2015 Osteoarthrosis, unspecified whether generalized or localized, other specified sites Left hip Plantar fasciitis 05/25/2017 Primary insomnia 05/25/2017 Renal dysfunction Type II or unspecified type diabetes mellitus without mention of complication, not stated as uncontrolled Surgical History: PAST SURGICAL HISTORY Procedure Laterality Date ARTHRP ACETBLR/PROX FEM PROSTC AGRFT/ALGRFT 11/14/2011 Hip replacement, total, L REMV CATARACT EXTRACAP,INSERT LENS Bilateral 2020 [facility] Family History: FAMILY HISTORY Problem Relation Age of Onset None Brother None Sister None Brother Medications: Current Outpatient Medications Medication Sig traZODone (DESYREL) 50 mg tablet Take 1 tablet by mouth at bedtime as needed for sedation. blood sugar diagnostic (newMentorUCH ULTRA TEST) test strip Test blood sugar once daily glipiZIDE (GLUCOTROL XL) 2.5 mg 24 hr tablet TAKE 1 TABLET BY MOUTH ONCE DAILY lisinopril-hydroCHLOROthiazide (ZESTORETIC) 20-25 mg per tablet Take 1 tablet by mouth once daily. pioglitazone (ACTOS) 45 mg tablet Take 1 tablet by mouth once daily. pravastatin (PRAVACHOL) 20 mg tablet Take 1 tablet by mouth once daily. lansoprazole (PREVACID) 30 mg capsule Take 1 capsule by mouth once daily. amLODIPine (NORVASC) 5 mg tablet TAKE 1 TABLET BY MOUTH ONCE DAILY metFORMIN (GLUCOPHAGE) 850 mg tablet Take 1 tablet by mouth two times a day with meals. meloxicam (MOBIC) 15 mg tablet Take 1 tablet by mouth once daily as needed for pain. DO NOT COMBINE WITH DICLOFENAC GEL diclofenac (VOLTAREN) 1 % topical gel Apply 2 g to affected area four times daily as needed. No current facility-administered medications for this visit. Allergies: Patient has no known allergies. Review Of Systems GENERAL:Negative for malaise, significant weight loss and fever HEENT:Negative for frequent or significant headaches, significant changes in vision or vision problems, significant ear problems or hearing loss, nasal discharge or nose bleeds and sore throat, difficulty swallowing, mouth lesions NECK:Negative for lumps, goiter, pain and significant neck swelling RESPIRATORY: Negative for cough, wheezing and shortness of breath CARDIOVASCULAR: Negative for chest pain, leg swelling and palpitations GASTROINTESTINAL: Negative for abdominal discomfort, blood in stools or black stools and change in bowel habits GENITOURINARY: Negative for dysuria, frequency and incontinence MUSCULOSKELETAL: Negative for joint pain or swelling, back pain, and muscle pain. NEUROLOGIC:Negative for focal numbness or weakness, headaches and dizziness. SKIN:Negative for lesions, rash, and itching. PSYCHIATRIC: Negative for sleep disturbance, mood disorder and recent psychosocial stressors. HEMATOLOGIC/LYMPHATIC/IMMUNOLOGIC: Negative for prolonged bleeding, bruising easily, and swollen nodes. ENDOCRINE: Negative for cold or heat intolerance, polyuria, polydipsia and goiter. Physical Exam: Basic physical examination reveals the patient to be in no acute distress. The patient is alert and oriented x 3 Mood and affect are appropriate. Head is atraumatic, normocephalic. Neck ROM grossly intact. Mucous membranes are moist. Eyes, ears, and nose are normal in appearance. Hearing is grossly intact. Breathing is unlabored with grossly normal chest motion. Limited Upper Extremity Exam: Shoulders with grossly intact ROM and strength, no obvious deformity. Elbows with grossly intact ROM and strength, no obvious deformity. Hand and wrist with grossly intact ROM and strength, no obvious deformity. Focused orthopaedic examination reveals the following: Skin intact without lesions. Mild swelling lateral malleolus TTP lateral malleolus NTTP calcaneus, posterior heel Achilles intact Imaging: XR With osteopenia No overt fx seen in fibula or calcaneus Assessment and Plan: Right ankle pain Unclear what is cause of pain May have soft tissue inflammation or subtle fx Will tx with stirrup brace and voltaren gel MR if not improved in 6 weeks Return to clinic: 6 weeks or prn X-Ray's at next visit: No [place]: [place] [address] [facility] [id number] FELLOW / RESIDENT: No fellow or resident assisted in this office visit. Simone Kevin MD documented in this encounter [facility] 09-20-2024 Note HNO ID: [id number] Author: SIMONE KEVIN MD Service: ? Author Type: Physician Type: Progress Notes Filed: 09/20/2024 09:33 Note Text: September 20, 2024 HPI: Yusuf Medina is a 88 yo female with right ankle swelling. Reports fall 2 months ago. Localizes pain to lateral ankle. Denies posterior heel pain. Pain Descriptors: Duration: 2 months Severity: moderate Quality: ache Location: foot, ankle Context: worse with activity and dependent position Modifying Factors: improved with rest and elevation Supporting Subjective Information Below: Estimated body mass index is 22.48 kg/m? as calculated from the following: Height as of 03/07/23: 152.4 cm (5'). Weight as of 09/17/24: 52.2 kg (115 lb 1.3 oz). Past Medical History 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/25/2017 CKD (chronic kidney disease) 05/11/2016 Essential hypertension, benign Hyperlipidemia LDL goal < 100 02/12/2014 Intractable low back pain 08/25/2015 Osteoarthrosis, unspecified whether generalized or localized, other specified sites Left hip Plantar fasciitis 05/25/2017 Primary insomnia 05/25/2017 Renal dysfunction Type II or unspecified type diabetes mellitus without mention of complication, not stated as uncontrolled Surgical History: PAST SURGICAL HISTORY Procedure Laterality Date ARTHRP ACETBLR/PROX FEM PROSTC AGRFT/ALGRFT 11/14/2011 Hip replacement, total, L REMV CATARACT EXTRACAP,INSERT LENS Bilateral 2020 [facility] Family History: FAMILY HISTORY Problem Relation Age of Onset None Brother None Sister None Brother Medications: Current Outpatient Medications Medication Sig traZODone (DESYREL) 50 mg tablet Take 1 tablet by mouth at bedtime as needed for sedation. blood sugar diagnostic ([employer] SwarmTOUCH ULTRA TEST) test strip Test blood sugar once daily glipiZIDE (GLUCOTROL XL) 2.5 mg 24 hr tablet TAKE 1 TABLET BY MOUTH ONCE DAILY lisinopril-hydroCHLOROthiazide (ZESTORETIC) 20-25 mg per tablet Take 1 tablet by mouth once daily. pioglitazone (ACTOS) 45 mg tablet Take 1 tablet by mouth once daily. pravastatin (PRAVACHOL) 20 mg tablet Take 1 tablet by mouth once daily. lansoprazole (PREVACID) 30 mg capsule Take 1 capsule by mouth once daily. amLODIPine (NORVASC) 5 mg tablet TAKE 1 TABLET BY MOUTH ONCE DAILY metFORMIN (GLUCOPHAGE) 850 mg tablet Take 1 tablet by mouth two times a day with meals. meloxicam (MOBIC) 15 mg tablet Take 1 tablet by mouth once daily as needed for pain. DO NOT COMBINE WITH DICLOFENAC GEL diclofenac (VOLTAREN) 1 % topical gel Apply 2 g to affected area four times daily as needed. No current facility-administered medications for this visit. Allergies: Patient has no known allergies. Review Of Systems GENERAL:Negative for malaise, significant weight loss and fever HEENT:Negative for frequent or significant headaches, significant changes in vision or vision problems, significant ear problems or hearing loss, nasal discharge or nose bleeds and sore throat, difficulty swallowing, mouth lesions NECK:Negative for lumps, goiter, pain and significant neck swelling RESPIRATORY: Negative for cough, wheezing and shortness of breath CARDIOVASCULAR: Negative for chest pain, leg swelling and palpitations GASTROINTESTINAL: Negative for abdominal discomfort, blood in stools or black stools and change in bowel habits GENITOURINARY: Negative for dysuria, frequency and incontinence MUSCULOSKELETAL: Negative for joint pain or swelling, back pain, and muscle pain. NEUROLOGIC:Negative for focal numbness or weakness, headaches and dizziness. SKIN:Negative for lesions, rash, and itching. PSYCHIATRIC: Negative for sleep disturbance, mood disorder and recent psychosocial stressors. HEMATOLOGIC/LYMPHATIC/IMMUNOLOGIC: Negative for prolonged bleeding, bruising easily, and swollen nodes. ENDOCRINE: Negative for cold or heat intolerance, polyuria, polydipsia and goiter. Physical Exam: Basic physical examination reveals the patient to be in no acute distress. The patient is alert and oriented x 3 Mood and affect are appropriate. Head is atraumatic, normocephalic. Neck ROM grossly intact. Mucous membranes are moist. Eyes, ears, and nose are normal in appearance. Hearing is grossly intact. Breathing is unlabored with grossly normal chest motion. Limited Upper Extremity Exam: Shoulders with grossly intact ROM and strength, no obvious deformity. Elbows with grossly intact ROM and strength, no obvious deformity. Hand and wrist with grossly intact ROM and strength, no obvious deformity. Focused orthopaedic examination reveals the following: Skin intact without lesions. Mild swelling lateral malleolus TTP lateral malleolus NTTP calcaneus, posterior heel Achilles intact Imaging: XR With osteopenia No overt fx seen in fibula or calcaneus Assessment and Plan: Right ankle pain Unclear what is cause of pain May have so (more content not included)... [facility] 09-19-2024 History of Present illness Narrative Radiology Service Progress Note PATIENT NAME: Yusuf Medina DATE OF SERVICE: September 19, 2024 TIME: 2:13 PM PATIENT IDENTITY VERIFICATION COMPLETED USING TWO (2) IDENTIFIERS: Name and Date of confirmed by patient verbally.Identity and body part also verified by the patients caregiver FALL SCREENING: Has the patient had 2 falls in the last year or 1 fall with injury or currently using an Ambulatory Assistive Device (Walker, Cane, Wheelchair, Crutches, etc.)? No PATIENT GENDER DATA: Female. status: : No status: NO. PATIENT RELEVANT IMPLANT DATA REVIEWED: Not Applicable PATIENT PRESENTS WITH AN IMPLANTABLE OR ATTACHED CIGARETTE MACHINES MECHANIC: No RADIOLOGY DEPARTMENT: General X-ray: Exam(s) Completed: Lower Extremity X-Ray(s): Foot, Right and Wt. Bearing and Heel, Right and Wt. Bearing PERIPHERAL IV DATA: Not applicable SIGNED BY: RUT Hui September 19, 2024 2:13 PM documented in this encounter [facility] 09-19-2024 Note HNO ID: [id number] Author: ZAID KUHN CT Service: Radiology Author Type: Technologist Type: Progress Notes Filed: 09/19/2024 14:14 Note Text: Radiology Service Progress Note PATIENT NAME: Yusuf Medina DATE OF SERVICE: September 19, 2024 TIME: 2:13 PM PATIENT IDENTITY VERIFICATION COMPLETED USING TWO (2) IDENTIFIERS: Name and Date of confirmed by patient verbally.Identity and body part also verified by the patients caregiver FALL SCREENING: Has the patient had 2 falls in the last year or 1 fall with injury or currently using an Ambulatory Assistive Device (Walker, Cane, Wheelchair, Crutches, etc.)? No PATIENT GENDER DATA: Female. status: : No status: NO. PATIENT RELEVANT IMPLANT DATA REVIEWED: Not Applicable PATIENT PRESENTS WITH AN IMPLANTABLE OR ATTACHED CIGARETTE MACHINES MECHANIC: No RADIOLOGY DEPARTMENT: General X-ray: Exam(s) Completed: Lower Extremity X-Ray(s): Foot, Right and Wt. Bearing and Heel, Right and Wt. Bearing PERIPHERAL IV DATA: Not applicable SIGNED BY: RUT Hui September 19, 2024 2:13 PM [facility] 09-18-2024 Telephone encounter Note Results were reviewed. I spoke with [id number] Demetria about suspicion for calcaneal bone fracture. Orders Signed This Visit (1) CONSULT PANEL TO ORTHOPAEDICS STAT, Dx: 1. Right ankle swelling 2. Closed nondisplaced fracture of right calcaneus, unspecified portion of calcaneus, initial encounte Grupo Mendez MD September 18, 2024 9:19 PM [facility] 09-18-2024 Miscellaneous Notes Results were reviewed. I spoke with [id number] Demetria about suspicion for calcaneal bone fracture. Orders Signed This Visit (1) CONSULT PANEL TO ORTHOPAEDICS STAT, Dx: 1. Right ankle swelling 2. Closed nondisplaced fracture of right calcaneus, unspecified portion of calcaneus, initial encounte Grupo Mendez MD September 18, 2024 9:19 PM documented in this encounter [facility] 09-18-2024 History of Present illness Narrative Radiology Service Progress Note PATIENT NAME: Yusuf Medina DATE OF SERVICE: September 18, 2024 TIME: 8:37 AM PATIENT IDENTITY VERIFICATION COMPLETED USING TWO (2) IDENTIFIERS: Name and Date of confirmed by patient verbally. FALL SCREENING: Has the patient had 2 falls in the last year or 1 fall with injury or currently using an Ambulatory Assistive Device (Walker, Cane, Wheelchair, Crutches, etc.)? No PATIENT GENDER DATA: Female. status: : No status: NO. PATIENT RELEVANT IMPLANT DATA REVIEWED: Not Applicable PATIENT PRESENTS WITH AN IMPLANTABLE OR ATTACHED CIGARETTE MACHINES MECHANIC: No RADIOLOGY DEPARTMENT: Ultrasound PERIPHERAL IV DATA: Not applicable SIGNED BY: Christina Tucker RDMS September 18, 2024 8:37 AM documented in this encounter [facility] 09-18-2024 Note [facility] 09-17-2024 Telephone encounter Note This was addressed in hematology appointment in [place]. Closing this encounter [facility] 09-17-2024 Miscellaneous Notes This was addressed in hematology appointment in [place]. Closing this encounter Vm left for patient's son. She has an appointment today in [place]-can Yusuf go to express care there after hematology? documented in this encounter [facility] 09-17-2024 Instructions Grupo Mendez MD - 09/17/2024 3:52 PM EST Please schedule Xray right ankle today Please schedule STAT US DVT right lower leg tomorrow Please send patient to lab today For scheduling questions, please call [phone] (tests and appointments). Ask for the oncology medical appointment scheduler. For symptom management or care coordination questions, please call Renetta Holder at [phone] or use my chart to reach us. After hours with medical questions, please call the doctor on-call at [phone]. Thank you, Grupo Mendez MD documented in this encounter [facility] 09-17-2024 History of Present illness Narrative Consultation requested by Dr. Migdalia Cramer for an opinion regarding leukocytosis. My final recommendations will be communicated back to the requesting physician by way of shared Medical record or letter to requesting physician via US mail. Presenting complaint: Patient Yusuf Medina was sent to my office to be evaluated for leukocytosis. ASSESSMENT: (D79.936) Leukocytosis, unspecified type (primary encounter diagnosis) Comment: Patient is a delightful 88 year old lady with prior admission from 03/07/2023 to 03/09/2023 for leukocytosis and polyarthralgia. Prior Xray of the knee and wrists showed chondrocalcinosis. She was seen by rheumatology with recommendations for tap of her wrists which patient declined. CBC on 08/13/2024 showed WBC 17.15 Hb 10.9 HCT 33.5 MCV 87.9 Platelets 321 CBC on 08/14/2024 showed WBC 12.41 Hb 11.2 HCT 35.2 MCV 89.3 Platelets 330 Plan: Leukocytosis appears reactive and neutrophilic. Plan to obtain BCR/ABL to rule out CML Plan to obtain pathology review for peripheral smear for signs of dysplasia or immature cells (D64.9) Normocytic anemia Comment: persistent at least since 03/06/2023 Plan: Patient is not keen on invasive bone marrow biopsy Plan to obtain non-invasive work-up to include nutritional deficiencies work-up such as iron studies, ferritin, folate, MMA, homocysteine, retic count, Vitamin B12, Vitamin B6, copper, zinc, copper, monoclonal gammopathy (M25.471) Right ankle swelling Comment: unilateral. Plan: Obtain US DVT LOWER RIGHT to rule out DVT Obtain XR ANKLE GENERAL 3V AP/LAT/OBL RIGHT to rule out underlying fracture Obtain RUBEN PANEL BLOOD SCRN, URIC ACID, CCP ANTIBODY IGG Return in about 4 months (around 01/15/2025) for follow-up with provider. Medical Decision Making: Problems: Moderate: New problem with uncertain prognosis Data: Unique test result(s) reviewed: 1 Assessment requiring an independent historian(s) Independent interpretation of test from other physician/QHCP Medical Decision Making Level: 4 - Moderate HPI: Patient is a delightful 88 year old lady with prior admission from 03/07/2023 to 03/09/2023 for leukocytosis and polyarthralgia. Prior Xray of the knee and wrists showed chondrocalcinosis. She was seen by rheumatology with recommendations for tap of her wrists which patient declined. CBC on 08/13/2024 showed WBC 17.15 Hb 10.9 HCT 33.5 MCV 87.9 Platelets 321 CBC on 08/14/2024 showed WBC 12.41 Hb 11.2 HCT 35.2 MCV 89.3 Platelets 330 Her right ankle is swollen for several days. Today in office patient reports she is feeling fatigued and endorses low energy level. She denies chest pain, cough, shortness of breath or hemoptysis. She denies syncope or orthopnea. Patient denies fever, chills, weight loss or night sweats. She denies dysuria or hematuria. She denies abdominal pain, abdominal bloating, nausea, vomiting, diarrhea. Patient denies motor weakness or neuropathy or headaches. She denies bleeding. She continues to perform her routine activities without excessive fatigue. 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/25/2017 CKD (chronic kidney disease) 05/11/2016 Essential hypertension, benign Hyperlipidemia LDL goal < 100 02/12/2014 Intractable low back pain 08/25/2015 Osteoarthrosis, unspecified whether generalized or localized, other specified sites Left hip Plantar fasciitis 05/25/2017 Primary insomnia 05/25/2017 Renal dysfunction Type II or unspecified type diabetes mellitus without mention of complication, not stated as uncontrolled PAST SURGICAL HISTORY Procedure Laterality Date ARTHRP ACETBLR/PROX FEM PROSTC AGRFT/ALGRFT 11/14/2011 Hip replacement, total, L REMV CATARACT EXTRACAP,INSERT LENS Bilateral 2020 [facility] FAMILY HISTORY Problem Relation Age of Onset None Brother None Sister None Brother SOCIAL HISTORY Social History Tobacco Use Smoking status: Never Smokeless tobacco: Never Substance Use Topics Alcohol use: No Drug use: No ALLERGIES: ALLERGIES No Known Allergies MEDICATIONS: Current Outpatient Medications Medication Sig traZODone (DESYREL) 50 mg tablet Take 1 tablet by mouth at bedtime as needed for sedation. blood sugar diagnostic ([employer] ULTRA TEST) test strip Test blood sugar once daily glipiZIDE (GLUCOTROL XL) 2.5 mg 24 hr tablet TAKE 1 TABLET BY MOUTH ONCE DAILY lisinopril-hydroCHLOROthiazide (ZESTORETIC) 20-25 mg per tablet Take 1 tablet by mouth once daily. pioglitazone (ACTOS) 45 mg tablet Take 1 tablet by mouth once daily. pravastatin (PRAVACHOL) 20 mg tablet Take 1 tablet by mouth once daily. lansoprazole (PREVACID) 30 mg capsule Take 1 capsule by mouth once daily. amLODIPine (NORVASC) 5 mg tablet TAKE 1 TABLET BY MOUTH ONCE DAILY metFORMIN (GLUCOPHAGE) 850 mg tablet Take 1 tablet by mouth two times a day with meals. meloxicam (MOBIC) 15 mg tablet Take 1 tablet by mouth once daily as needed for pain. DO NOT COMBINE WITH DICLOFENAC GEL diclofenac (VOLTAREN) 1 % topical gel Apply 2 g to affected area four times daily as needed. No current facility-administered medications for this visit. REVIEW OF SYSTEMS: Review of Systems Constitutional: Positive for fatigue. Negative for appetite change, chills, fever and unexpected weight change. HENT: Negative for mouth sores, nosebleeds and trouble swallowing. Eyes: Negative for eye problems and icterus. Respiratory: Negative for cough, hemoptysis and shortness of breath. Cardiovascular: Positive for leg swelling. Negative for chest pain and palpitations. Right ankle swelling Gastrointestinal: Positive for constipation. Negative for abdominal pain and blood in stool. Metamucil for constipation Endocrine: Negative for hot flashes. Genitourinary: Negative for difficulty urinating and hematuria. Musculoskeletal: Negative for back pain, flank pain and gait problem. Skin: Negative for rash and wound. Neurological: Negative for gait problem. Hematological: Negative for adenopathy. Does not bruise/bleed easily. Psychiatric/Behavioral: Negative for confusion, decreased concentration, depression and sleep disturbance. PHYSICAL EXAMINATION: VITALS: BP 166/88 Pulse 92 Resp 16 Wt 115 lb 1.3 oz (52.2kg) SpO2 99% Physical Exam Vitals and nursing note reviewed. Constitutional: General: She is not in acute distress. Appearance: She is not toxic-appearing or diaphoretic. HENT: Head: Normocephalic and atraumatic. Eyes: General: No scleral icterus. Cardiovascular: Rate and Rhythm: Normal rate and regular rhythm. Heart sounds: Normal heart sounds. No murmur heard. Pulmonary: Effort: Pulmonary effort is normal. No respiratory distress. Breath sounds: Normal breath sounds. Abdominal: General: There is no distension. Tenderness: There is no abdominal tenderness. There is no guarding or rebound. Musculoskeletal: General: Swelling present. Cervical back: Neck supple. No rigidity. Comments: Right ankle swelling Lymphadenopathy: Cervical: No cervical adenopathy. Skin: Coloration: Skin is not jaundiced or pale. Neurological: Mental Status: Mental status is at baseline. Psychiatric: Mood and Affect: Mood normal. Behavior: Behavior normal. Thought Content: Thought content normal. Judgment: Judgment normal. LABS: 1. WBC Date Value Ref Range Status 09/17/2024 9.43 3.70 - 11.00 k/uL Final RBC Date Value Ref Range Status 09/17/2024 3.99 3.90 - 5.20 m/uL Final Hemoglobin Date Value Ref Range Status 09/17/2024 11.4 (L) 11.5 - 15.5 g/dL Final Hematocrit Date Value Ref Range Status 09/17/2024 35.2 (L) 36.0 - 46.0 % Final MCV Date Value Ref Range Status 09/17/2024 88.2 80.0 - 100.0 fL Final MCH Date Value Ref Range Status 09/17/2024 28.6 26.0 - 34.0 pg Final MCHC Date Value Ref Range Status 09/17/2024 32.4 30.5 - 36.0 g/dL Final RDW-CV Date Value Ref Range Status 09/17/2024 14.2 11.5 - 15.0 % Final Platelet Count Date Value Ref Range Status 09/17/2024 409 (H) 150 - 400 k/uL Final MPV Date Value Ref Range Status 09/17/2024 9.8 9.0 - 12.7 fL Final Abs Neut Date Value Ref Range Status 09/17/2024 7.33 1.45 - 7.50 k/uL Final Lymphocytes % Date Value Ref Range Status 09/17/2024 15.1 % Final Abs Lymph Date Value Ref Range Status 09/17/2024 1.42 1.00 - 4.00 k/uL Final Monocytes % Date Value Ref Range Status 09/17/2024 5.5 % Final Abs White Date Value Ref Range Status 09/17/2024 0.52 <0.87 k/uL Final Abs Eosin Date Value Ref Range Status 09/17/2024 0.07 <0.46 k/uL Final Basophils % Date Value Ref Range Status 09/17/2024 0.3 % Final Abs Baso Date Value Ref Range Status 09/17/2024 0.03 <0.11 k/uL Final 2. Glucose Date Value 08/14/2024 245 mg/dL 09/10/2020 158 mg/dL 04/10/2003 159 mg/dl Potassium (mmol/L) Date Value 08/14/2024 4.9 09/10/2020 5.0 Sodium (mmol/L) Date Value 08/14/2024 133 09/10/2020 141 Chloride (mmol/L) Date Value 08/14/2024 96 09/10/2020 105 CO2 (mmol/L) Date Value 08/14/2024 24 09/10/2020 24 Creatinine (mg/dL) Date Value 08/14/2024 0.89 09/10/2020 1.22 BUN (mg/dL) Date Value 08/14/2024 29 09/10/2020 32 Anion Gap (mmol/L) Date Value 08/14/2024 13 09/10/2020 12 Calcium (mg/dL) Date Value 09/10/2020 9.7 Calcium, Total (mg/dL) Date Value 08/14/2024 9.9 Protein, Total (g/dL) Date Value 08/14/2024 6.7 05/19/2020 6.3 Albumin (g/dL) Date Value 08/13/2024 4.0 05/19/2020 4.0 Bilirubin, Total (mg/dL) Date Value 08/13/2024 0.2 05/19/2020 <0.1 Alkaline Phosphatase (U/L) Date Value 08/13/2024 99 05/19/2020 67 AST (U/L) Date Value 08/13/2024 18 05/19/2020 17 ALT (U/L) Date Value 08/13/2024 15 05/19/2020 12 Grupo Mendez MD CC: Migdalia Ortiz MD documented in this encounter [facility] 09-17-2024 Note HNO ID: [id number] Author: GRUPO MENDEZ MD Service: ? Author Type: Physician Type: Progress Notes Filed: 09/24/2024 03:38 Note Text: Consultation requested by Dr. Migdalia Cramer for an opinion regarding leukocytosis. My final recommendations will be communicated back to the requesting physician by way of shared Medical record or letter to requesting physician via US mail. Presenting complaint: Patient Yusuf Medina was sent to my office to be evaluated for leukocytosis. ASSESSMENT: (W88.097) Leukocytosis, unspecified type (primary encounter diagnosis) Comment: Patient is a delightful 88 year old lady with prior admission from 03/07/2023 to 03/09/2023 for leukocytosis and polyarthralgia. Prior Xray of the knee and wrists showed chondrocalcinosis. She was seen by rheumatology with recommendations for tap of her wrists which patient declined. CBC on 08/13/2024 showed WBC 17.15 Hb 10.9 HCT 33.5 MCV 87.9 Platelets 321 CBC on 08/14/2024 showed WBC 12.41 Hb 11.2 HCT 35.2 MCV 89.3 Platelets 330 Plan: Leukocytosis appears reactive and neutrophilic. Plan to obtain BCR/ABL to rule out CML Plan to obtain pathology review for peripheral smear for signs of dysplasia or immature cells (D64.9) Normocytic anemia Comment: persistent at least since 03/06/2023 Plan: Patient is not keen on invasive bone marrow biopsy Plan to obtain non-invasive work-up to include nutritional deficiencies work-up such as iron studies, ferritin, folate, MMA, homocysteine, retic count, Vitamin B12, Vitamin B6, copper, zinc, copper, monoclonal gammopathy (M25.471) Right ankle swelling Comment: unilateral. Plan: Obtain US DVT LOWER RIGHT to rule out DVT Obtain XR ANKLE GENERAL 3V AP/LAT/OBL RIGHT to rule out underlying fracture Obtain RUBEN PANEL BLOOD SCRN, URIC ACID, CCP ANTIBODY IGG Return in about 4 months (around 01/15/2025) for follow-up with provider. Medical Decision Making: Problems: Moderate: New problem with uncertain prognosis Data: Unique test result(s) reviewed: 1 Assessment requiring an independent historian(s) Independent interpretation of test from other physician/QHCP Medical Decision Making Level: 4 - Moderate HPI: Patient is a delightful 88 year old lady with prior admission from 03/07/2023 to 03/09/2023 for leukocytosis and polyarthralgia. Prior Xray of the knee and wrists showed chondrocalcinosis. She was seen by rheumatology with recommendations for tap of her wrists which patient declined. CBC on 08/13/2024 showed WBC 17.15 Hb 10.9 HCT 33.5 MCV 87.9 Platelets 321 CBC on 08/14/2024 showed WBC 12.41 Hb 11.2 HCT 35.2 MCV 89.3 Platelets 330 Her right ankle is swollen for several days. Today in office patient reports she is feeling fatigued and endorses low energy level. She denies chest pain, cough, shortness of breath or hemoptysis. She denies syncope or orthopnea. Patient denies fever, chills, weight loss or night sweats. She denies dysuria or hematuria. She denies abdominal pain, abdominal bloating, nausea, vomiting, diarrhea. Patient denies motor weakness or neuropathy or headaches. She denies bleeding. She continues to perform her routine activities without excessive fatigue. 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/25/2017 CKD (chronic kidney disease) 05/11/2016 Essential hypertension, benign Hyperlipidemia LDL goal < 100 02/12/2014 Intractable low back pain 08/25/2015 Osteoarthrosis, unspecified whether generalized or localized, other specified sites Left hip Plantar fasciitis 05/25/2017 Primary insomnia 05/25/2017 Renal dysfunction Type II or unspecified type diabetes mellitus without mention of complication, not stated as uncontrolled PAST SURGICAL HISTORY Procedure Laterality Date ARTHRP ACETBLR/PROX FEM PROSTC AGRFT/ALGRFT 11/14/2011 Hip replacement, total, L REMV CATARACT EXTRACAP,INSERT LENS Bilateral 2020 [facility] FAMILY HISTORY Problem Relation Age of Onset None Brother None Sister None Brother SOCIAL HISTORY Social History Tobacco Use Smoking status: Never Smokeless tobacco: Never Substance Use Topics Alcohol use: No Drug use: No ALLERGIES: ALLERGIES No Known Allergies MEDICATIONS: Current Outpatient Medications Medication Sig traZODone (DESYREL) 50 mg tablet Take 1 tablet by mouth at bedtime as needed for sedation. blood sugar diagnostic ([employer] ULTRA TEST) test strip Test blood sugar once daily glipiZIDE (GLUCOTROL XL) 2.5 mg 24 hr tablet TAKE 1 TABLET BY MOUTH ONCE DAILY lisinopril-hydroCHLOROthiazide (ZESTORETIC) 20-25 mg per tablet Take 1 tablet by mouth once daily. pioglitazone (ACTOS) 45 mg tablet Take 1 tablet by mouth once daily. pravastatin (PRAVACHOL) 20 mg tablet Take 1 tablet by mouth once daily. lansoprazole (PREVACID) 30 mg capsule Take 1 capsule by mouth once daily. amLODIPine (NORVASC) 5 mg tablet TAKE 1 TABLET BY MOUTH ONCE DAILY metFORMIN (more content not included)... [facility] 09-17-2024 Telephone encounter Note Vm left for patient's son. She has an appointment today in [place]-can Yusuf go to express care there after hematology? [facility] 09-13-2024 Note HNO ID: [id number] Author: MIGDALIA CRAMER MD Service: ? Author Type: Physician Type: Progress Notes Filed: 10/19/2024 21:36 Note Text: Yusuf Medina is a 88 year old female here for a Medicare wellness visit. She has been taking her medicines every day, no problems She is sleeping better Taking trazodone No problems feeling sleepy in the AM or during the day Medicare Health Risk Assessment General Health Very good Exercise: Minutes/Day 10 min Exercise: Days/Week 3 days Alcohol: Daily Use Never Alcohol: Drinks/Day Patient does not drink Alcohol: 6 or more drinks Never Feel off balance No Concerns: Teeth/Dentures No Concerns: Sexual function No Troubled by feelings Lonely; Irritable Frequency: Eating healthy diet Several days ADLs requiring help Grocery shopping; Taking medications; Housework (daughter in law and son assist patient with checked items) Safety precautions in home/vehicle Yes Smoke, vape, chews tobacco No Difficulty hearing Yes Difficulty seeing No Current Providers Specialists: I have reviewed specialist-related care of the patient in the medical record. Seeing Hematology in 4 days for leukocytosis Medical/Family history review Reviewed and updated problem list, medical history, social history, and medication list. Opioid use review Opioid Medications (last 90 days) No data to display Anxiety/Depression screening PHQ-2 Score: 2 (Lower risk for depression) Recommendation: no further intervention at this time Cognitive screening Mini Cog Score: 0 Cognitive screening reviewed and Patient declined Mini-Cog test. Unable to to language barrier Functional Observation Was the patient's Timed Up AND Go test unsteady or >= 12 seconds? No Advance Care Planning Surrogate decision maker and/or advance care plan documented Measurements BP 151/73 Pulse 98 Wt 51.3 kg (113 lb 1.5 oz) BMI 22.09 kg/m? CV: RRR w/o m,r,g, nl S1/S2 LUNGS: CTAB w/o w,r,r Assessment/Plan Medicare annual wellness visit, subsequent (Z00.00) - Counseled on healthy diet and regular exercise - Fall avoidance information provided - Personalized prevention plan provided - ACP discussion completed Declines vaccines Additional Concerns The following concerns were also discussed with the patient: 2 days of swelling and redness of the right ankle, lateral side No injury No limitation of movement No fever She wears boots when she goes outside Seeing Hematology in 4 days for leukocytosis Workup has included evaluation for UTI as well as inflammatory markers, thyroid function, urine and serum protein electrophoresis PHYSICAL EXAM BP 150/60 Pulse 98 Wt 51.3 kg (113 lb 1.5 oz) BMI 22.09 kg/m? GENERAL: well appearing, alert, in no acute distress CARDIOVASCULAR: regular rate and rhythm. No murmur, rubs or gallops. PULMONARY: clear to auscultation, no wheezing, rhonchi, or crackles EXT: R ankle, lat side, slight erythema and swelling localized to just where her boot rubs on skin (Z00.00) Medicare annual wellness visit, subsequent (primary encounter diagnosis) (Z13.31) Screening for depression (G47.00) Insomnia (Z13.39) Encounter for screening examination for other mental health and behavioral disorders (S90.511A) Abrasion of right ankle, initial encounter (I10) Essential hypertension (F51.01) Primary insomnia (E11.69, E78.5) Hyperlipidemia associated with type 2 diabetes mellitus (HCC) (HCC) (I12.9, N18.32) Hypertensive kidney disease with stage 3b chronic kidney disease (HCC) (E11.22, N18.30) CKD stage 3 due to type 2 diabetes mellitus (HCC) (E11.9) Diabetes mellitus, non-insulin dependent (NIDDM or type II) (HCC) (D50.9) Iron deficiency anemia, unspecified iron deficiency anemia type (D72.829) Leukocytosis, unspecified type BP elevated Continue lisinopril/HCTZ 20/25 mg daily and amlodipine 5 mg daily Continue glipizide, pioglitazone, and metformin daily for diabetes Continue pravastatin 20 mg daily for hyperlipidemia Continue trazodone as needed for sleep Reviewed last labs to check CBC, BMP, A1c, lipid panel in 6 months Migdalia Cramer MD [facility] 09-13-2024 History of Present illness Narrative Images from the original note were not included. Yusuf Medina is a 88 year old female here for a Medicare wellness visit. She has been taking her medicines every day, no problems She is sleeping better Taking trazodone No problems feeling sleepy in the AM or during the day Medicare Health Risk Assessment General Health Very good Exercise: Minutes/Day 10 min Exercise: Days/Week 3 days Alcohol: Daily Use Never Alcohol: Drinks/Day Patient does not drink Alcohol: 6 or more drinks Never Feel off balance No Concerns: Teeth/Dentures No Concerns: Sexual function No Troubled by feelings Lonely; Irritable Frequency: Eating healthy diet Several days ADLs requiring help Grocery shopping; Taking medications; Housework (daughter in law and son assist patient with checked items) Safety precautions in home/vehicle Yes Smoke, vape, chews tobacco No Difficulty hearing Yes Difficulty seeing No Current Providers Specialists: I have reviewed specialist-related care of the patient in the medical record. Seeing Hematology in 4 days for leukocytosis Medical/Family history review Reviewed and updated problem list, medical history, social history, and medication list. Opioid use review Opioid Medications (last 90 days) No data to display Anxiety/Depression screening PHQ-2 Score: 2 (Lower risk for depression) Recommendation: no further intervention at this time Cognitive screening Mini Cog Score: 0 Cognitive screening reviewed and Patient declined Mini-Cog test. Unable to to language barrier Functional Observation Was the patient's Timed Up & Go test unsteady or >= 12 seconds? No Advance Care Planning Surrogate decision maker and/or advance care plan documented Measurements BP 151/73 Pulse 98 Wt 51.3 kg (113 lb 1.5 oz) BMI 22.09 kg/m CV: RRR w/o m,r,g, nl S1/S2 LUNGS: CTAB w/o w,r,r Assessment/Plan Medicare annual wellness visit, subsequent (Z00.00) - Counseled on healthy diet and regular exercise - Fall avoidance information provided - Personalized prevention plan provided - ACP discussion completed Declines vaccines Additional Concerns The following concerns were also discussed with the patient: 2 days of swelling and redness of the right ankle, lateral side No injury No limitation of movement No fever She wears boots when she goes outside Seeing Hematology in 4 days for leukocytosis Workup has included evaluation for UTI as well as inflammatory markers, thyroid function, urine and serum protein electrophoresis PHYSICAL EXAM BP 150/60 Pulse 98 Wt 51.3 kg (113 lb 1.5 oz) BMI 22.09 kg/m GENERAL: well appearing, alert, in no acute distress CARDIOVASCULAR: regular rate and rhythm. No murmur, rubs or gallops. PULMONARY: clear to auscultation, no wheezing, rhonchi, or crackles EXT: R ankle, lat side, slight erythema and swelling localized to just where her boot rubs on skin (Z00.00) Medicare annual wellness visit, subsequent (primary encounter diagnosis) (Z13.31) Screening for depression (G47.00) Insomnia (Z13.39) Encounter for screening examination for other mental health and behavioral disorders (S90.511A) Abrasion of right ankle, initial encounter (I10) Essential hypertension (F51.01) Primary insomnia (E11.69, E78.5) Hyperlipidemia associated with type 2 diabetes mellitus (HCC) (HCC) (I12.9, N18.32) Hypertensive kidney disease with stage 3b chronic kidney disease (HCC) (E11.22, N18.30) CKD stage 3 due to type 2 diabetes mellitus (HCC) (E11.9) Diabetes mellitus, non-insulin dependent (NIDDM or type II) (HCC) (D50.9) Iron deficiency anemia, unspecified iron deficiency anemia type (D72.829) Leukocytosis, unspecified type BP elevated Continue lisinopril/HCTZ 20/25 mg daily and amlodipine 5 mg daily Continue glipizide, pioglitazone, and metformin daily for diabetes Continue pravastatin 20 mg daily for hyperlipidemia Continue trazodone as needed for sleep Reviewed last labs to check CBC, BMP, A1c, lipid panel in 6 months Migdalia Cramer MD documented in this encounter [facility] 09-13-2024 Instructions Migdalia Cramer MD - 09/13/2024 10:27 AM EDT Screening schedule The following prevention plan is recommended: Depression Screening Never done Anxiety Screening Never done DTaP,Tdap,Td Vaccine(1 - Tdap) Never done RSV Vaccine(1 - 1-dose 75+ series) Never done Colorectal Cancer Screening due on 06/15/2012 Shingrix Vaccine(2 of 3) due on 03/19/2015 Diabetic Foot Exam due on 10/23/2023 Advance Directive Discussion due on 11/14/2023 WHAT YOU CAN DO TO PREVENT FALLS Many falls can be prevented. By making some changes, you can lower your chances of falling. Four things YOU can do to prevent falls for you* and your caregiver 1. Begin a regular exercise program Exercise is one of the most important ways to lower your chances of falling. It makes you stronger and helps you feel better. Exercises that improve balance and coordination (like Blake Chi) are the most helpful. Lack of exercise leads to weakness and increases your chances of falling. Ask your doctor or health care provider about the best type of exercise program for you. 2. Have your health care provider review your medicines Have your doctor or pharmacist review all the medicines you take, even [id number] medicines. As you get older, the way medicines work in your body can change. Some medicines, or combinations of medicines, can make you sleepy or dizzy and can cause you to fall. 3. Have your vision checked Have your eyes checked by an eye doctor at least once a year. You may be wearing the wrong glasses or have a condition like glaucoma or cataracts that limits your vision. Poor vision can increase your chances of falling. 4. Make your home safer About half of all falls happen at home. To make your home safer: Remove things you can trip over (like papers, books, clothes, and shoes) from stairs and places where you walk. Remove small throw rugs or use double-sided tape to keep the rugs from slipping. Keep items you use often in cabinets you can reach easily without using a step stool. Have grab bars put in next to your toilet and in the tub or shower. Use non-slip mats in the bathtub and on shower floors. Improve the lighting in your home. As you get older, you need brighter lights to see well. Hang light-weight curtains or shades to reduce glare. Have handrails and lights put in on all staircases. Wear shoes both inside and outside the house. Avoid going barefoot or wearing slippers. For more information, contact: Centers for Disease Control and Prevention www.cdc.gov/injury * This information may not apply if you have certain medical conditions. documented in this encounter [facility] 09-04-2024 Telephone encounter Note Patient has been scheduled for 09/17 Thank you [facility] 09-04-2024 Miscellaneous Notes Patient has been scheduled for 09/17 Thank you Please contact the patient's [id number] Demetria at [phone] to assist with scheduling a consult with hematology/oncology for a high white blood cell count. I sent a [employer]t message today about test results: Nori Ramos for the delay in communicating about the test results. We've been trying to figure out the best next step. There was nothing we found on the additional tests that clearly identified the cause of the elevation of white blood cell count. The persistent high white blood cell count is not normal and can indicate different types of blood related cancers. For this reason, I would recommend we get a consultation with a book binder, a blood specialist. I put an order in for a consultation and will ask a medical appointment scheduler to contact you to get it set up. We just want to make sure there is nothing serious going on that we should be more concerned about. Mgidalia Cramer MD documented in this encounter [facility] 09-04-2024 Telephone encounter Note Please contact the patient's [id number] Demetria at [phone] to assist with scheduling a consult with hematology/oncology for a high white blood cell count. I sent a [employer] message today about test results: Nori Ramos for the delay in communicating about the test results. We've been trying to figure out the best next step. There was nothing we found on the additional tests that clearly identified the cause of the elevation of white blood cell count. The persistent high white blood cell count is not normal and can indicate different types of blood related cancers. For this reason, I would recommend we get a consultation with a book binder, a blood specialist. I put an order in for a consultation and will ask a medical appointment scheduler to contact you to get it set up. We just want to make sure there is nothing serious going on that we should be more concerned about. Migdalia Cramer MD [facility] 08-22-2024 Telephone encounter Note Patients sister in law has been informed. Thank you [facility] 08-22-2024 Miscellaneous Notes Patients sister in law has been informed. Thank you Please let her know that Dr. Cramer is currently evaluating the lab results and will reach out to her as soon as he is able. He is currently out of the office. ,Willie Kaur APRN.CNP Patients sister in law called and wanted to discuss the results of the labs. documented in this encounter [facility] 08-21-2024 Telephone encounter Note Please let her know that Dr. Cramer is currently evaluating the lab results and will reach out to her as soon as he is able. He is currently out of the office. ,Willie Kaur APRN.CNP [facility] 08-21-2024 Telephone encounter Note The following approved medication requests have been transmitted electronically. Requested Prescriptions Signed Prescriptions Disp Refills blood sugar diagnostic (ONETOUCH ULTRA TEST) test strip 100 Strip 3 Sig: Test blood sugar once daily Authorizing Provider: WILLIE KAUR APRN.CNP [facility] 08-21-2024 Miscellaneous Notes The following approved medication requests have been transmitted electronically. Requested Prescriptions Signed Prescriptions Disp Refills blood sugar diagnostic (ONETOUCH ULTRA TEST) test strip 100 Strip 3 Sig: Test blood sugar once daily Authorizing Provider: WILLIE KAUR APRN.CNP Patient has been identified by name and date of : Yes Last office visit in this department: 08/14/2024 FOV: 09/13/2024 RX INSTRUCTIONS: Patient aware RX will be sent to pharmacy. No need to notify patient. Patient phones requesting refills as follows: Requested Prescriptions Pending Prescriptions Disp Refills blood sugar diagnostic (ONETOUCH ULTRA TEST) test strip 100 Strip 3 Sig: Test blood sugar once daily Please review and advise. Jame Hernandez MA Prescription Refill Information The patient has been identified by name and date of : Yes Caregiver verified no other encounters exist for this prescription request: Yes Caregiver confirmed with patient/requestor that no other refills are due, in the near future, with this provider at this time: Yes The last office visit in the department: Does the patient have a future office visit with this provider/department: Yes Requested Prescriptions Pending Prescriptions Disp Refills blood sugar diagnostic (ONETOUCH ULTRA TEST) test strip 100 Strip 3 Sig: Test blood sugar once daily Sister in law asked if a 1 month can be sent to retail and the rest sent to [facility] Perla Perez August 21, 2024 10:12 AM documented in this encounter [facility] 08-21-2024 Telephone encounter Note Patient has been identified by name and date of : Yes Last office visit in this department: 08/14/2024 FOV: 09/13/2024 RX INSTRUCTIONS: Patient aware RX will be sent to pharmacy. No need to notify patient. Patient phones requesting refills as follows: Requested Prescriptions Pending Prescriptions Disp Refills blood sugar diagnostic (ONETOUCH ULTRA TEST) test strip 100 Strip 3 Sig: Test blood sugar once daily Please review and advise. Jame Hernandez MA [facility] 08-21-2024 Telephone encounter Note Prescription Refill Information The patient has been identified by name and date of : Yes Caregiver verified no other encounters exist for this prescription request: Yes Caregiver confirmed with patient/requestor that no other refills are due, in the near future, with this provider at this time: Yes The last office visit in the department: Does the patient have a future office visit with this provider/department: Yes Requested Prescriptions Pending Prescriptions Disp Refills blood sugar diagnostic (ONETOUCH ULTRA TEST) test strip 100 Strip 3 Sig: Test blood sugar once daily Sister in law asked if a 1 month can be sent to retail and the rest sent to [facility] ePrla Perez August 21, 2024 10:12 AM [facility] 08-21-2024 Telephone encounter Note Patients sister in law called and wanted to discuss the results of the labs. [facility] 08-14-2024 History of Present illness Narrative Yusuf Medina is a 88 year old female Patient presents with: Hospital Follow Up Here for ER follow up 08/13/24 ED for weakness and feeling shaky. During assessment, patient indicated that she was feeling better and wanted to go home. Daughter encouraged her to stay for work up. Daughter indicated that Yusuf may have taken both AM and PM medications together by accident. Discussed strategy to prevent this. XR negative for PNA Na 134, Cl 96, BUN 29, GFR 64, creatinine 0.87 H/H 10.9/33.5 mildly low and similar to 2021 Leucocytosis 17.15 UA 1+ protein but otherwise WNL ER to hospital admission 03/07/24 for shoulder and hip pain and leucocytosis. Suspected inflammatory vs infectious process. Rheumatology consult with XR that indicated wrists and knees showed chondrocalcinosis, advised tap of wrists to evaluate for CPPD, which she declined. Lives alone 1-2 family members check in on her 1-3 times daily Family will call her when it is time to take her pills. Family suspects that she can occasionally take her morning and evening pills together. Family has decided to set up her pill box and call her to tell her when to take her mediations. Today patient indicates she feels the same as usual. Intermittent headaches, trouble staying asleep, urinary frequency, generalized weakness, arthralgia. Family thinks her pain, weakness, arthralgia, and trouble staying asleep are gradually worsening. SHAY's. Started years ago, intermittent, unchanged. Not changed by position or bearing down. Alleviating: laying down, closing her eyes. - nausea, - vomiting, - vision changes, + photophobia, - phonophobia. Trouble staying asleep. Family asking for medicine to help sleeping. Melatonin not helpful. PRN Trazodone 2013, wants to try again. Urinary frequency, nocturia x 3 per night, incontinence. This is not new. I advised STOPPING hydrochlorothiazide and INCREASING dose lisinopril but patient declines. Indicates urinary issues are not a problem. Weakness generalized started years ago, patient thinks this is unchanged, family thinks this is gradually worsening over a long period of time. No cough, fever, chills, orthopnea, nausea, vomiting DM Actos 45 mg once daily Glipizide 2.5 mg once daily Metformin 850 mg twice daily 07/11/24 A1C 8.2 Fasting blood sugars 100-110 HTN Lisinopril-hydrochlorothiazide 20/25 mg once daily Norvasc 5 mg once daily 08/13/24 Creatinine 0.87 HPL Pravastatin 20 mg once daily 07/11/24 LDL 71 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/25/2017 CKD (chronic kidney disease) 05/11/2016 Essential hypertension, benign Hyperlipidemia LDL goal < 100 02/12/2014 Intractable low back pain 08/25/2015 Osteoarthrosis, unspecified whether generalized or localized, other specified sites Left hip Plantar fasciitis 05/25/2017 Primary insomnia 05/25/2017 Renal dysfunction Type II or unspecified type diabetes mellitus without mention of complication, not stated as uncontrolled Social History Tobacco Use Smoking status: Never Smokeless tobacco: Never Substance Use Topics Alcohol use: No Drug use: No Current Outpatient Medications on File Prior to Visit Medication Sig glipiZIDE (GLUCOTROL XL) 2.5 mg 24 hr tablet TAKE 1 TABLET BY MOUTH ONCE DAILY lisinopril-hydroCHLOROthiazide (ZESTORETIC) 20-25 mg per tablet Take 1 tablet by mouth once daily. pioglitazone (ACTOS) 45 mg tablet Take 1 tablet by mouth once daily. pravastatin (PRAVACHOL) 20 mg tablet Take 1 tablet by mouth once daily. lansoprazole (PREVACID) 30 mg capsule Take 1 capsule by mouth once daily. amLODIPine (NORVASC) 5 mg tablet TAKE 1 TABLET BY MOUTH ONCE DAILY metFORMIN (GLUCOPHAGE) 850 mg tablet Take 1 tablet by mouth two times a day with meals. meloxicam (MOBIC) 15 mg tablet Take 1 tablet by mouth once daily as needed for pain. DO NOT COMBINE WITH DICLOFENAC GEL blood sugar diagnostic (newMentorUCH ULTRA TEST) test strip Test blood sugar once daily lisinopril-hydroCHLOROthiazide (ZESTORETIC) 20-25 mg per tablet Take 1 tablet by mouth once daily for 7 days. SHORT TERM WHILE MAIL ORDER BEING SHIPPED diclofenac (VOLTAREN) 1 % topical gel Apply 2 g to affected area four times daily as needed. No current facility-administered medications on file prior to visit. Patient has no known allergies. Physical Exam: BP 125/68 Pulse 91 Temp 36.4 C (97.6 F) (Temporal) Wt 51.1 kg (112 lb 10.5 oz) SpO2 96% BMI 22.00 kg/m GEN: Pleasant female in no acute distress HEENT: Normocephalic/atraumatic; pupils equal, round and reactive; extra-ocular movements intact, mucous membranes moist, oropharynx clear, tympanic membranes clear, external auditory canals clear, nares clear. + mild TTP bilateral temporal area without swelling or erythema or increased warmth. NECK: Supple CARDIO: Heart with a regular rate and rhythm without murmurs, rubs, or gallops. Normal S1/S2. LUNGS: Clear to auscultation bilaterally without wheezes, ronchi, or rales. Good air movement. ABDOMEN: Soft, non-tender, non-distended, bowel sounds present, no masses are palpable. EXTREMITIES: No cyanosis, clubbing, or edema. Equal strength bilateral legs. NEURO: No gait abnormalities, no other gross abnormalities observed. JOINTS: No swelling wrists, elbows, shoulders, knees, ankles. ASSESSMENT/PLAN: 1. Generalized weakness - ICD9: 780.79, ICD10: R53.1 (primary diagnosis) - Ddx inflammatory, infectious, malignancy. Check labs, advise urine culture. Stable in clinic today. Patient indicates sx are unchanged from baseline. Family thinks weakness, trouble staying asleep, urinary frequency are gradually worsening over a long period of time. - SPEP - UPEP - SED RATE - CRP - PATHOLOGIST INTERPRETATION WITH CBC AND DIFF - URINALYSIS, DIPSTICK ONLY 2. Headache, unspecified headache type - ICD9: 784.0, ICD10: R51.9 - PATHOLOGIST INTERPRETATION WITH CBC AND DIFF 3. Leukocytosis, unspecified type - ICD9: 288.60, ICD10: D72.829 - Ddx inflammatory, infectious, malignancy. Check labs, advise urine culture. Stable in clinic today. Patient indicates sx are unchanged from baseline. Family thinks weakness, trouble staying asleep, urinary frequency are gradually worsening over a long period of time. - SPEP - UPEP - SEDIMENTATION RATE, WESTERGREN - C-REACTIVE PROTEIN - URINE CULTURE - PATHOLOGIST INTERPRETATION WITH CBC AND DIFF - URINALYSIS, DIPSTICK ONLY 4. CKD stage 3 due to type 2 diabetes mellitus (HCC) - ICD9: 250.40, 585.3, ICD10: E11.22, N18.30 - PATHOLOGIST INTERPRETATION WITH CBC AND DIFF 5. Normocytic anemia - ICD9: 285.9, ICD10: D64.9 - PATHOLOGIST INTERPRETATION WITH CBC AND DIFF 6. Essential hypertension - ICD9: 401.9, ICD10: I10 - BP at goal < 140/80 - Urinary frequency, nocturia x 3 per night, incontinence. This is not new. I advised STOPPING hydrochlorothiazide and INCREASING dose lisinopril but patient declines. Indicates urinary issues are not a problem. 7. Insomnia - ICD9: 780.52, ICD10: G47.00 - Trial PRN trazodone. Has taken PRN in 2013. - TRAZODONE 50 MG TABLET 8. Arthralgia, unspecified joint - ICD9: 719.40, ICD10: M25.50 - She reports arthralgia is at baseline. Family think that arthralgia is worsening over a long period of time Willie Kaur APRN.[facility] [place] I have personally performed a [id number] evaluation on this patient. I have reviewed the chart relative to the office visit today. I have edited the documentation of the office visit note as necessary. Pertinent additional history obtained by me: F/U from ED yesterday. Patient says she feels fine. Family not so sure. Has had some times where proper medication adherence may not be complete - possibly duplication. Not sleeping well. Waking frequently. Not necessarily to void but does usually void since she's awake. Multiple joint pains but no redness, swelling, increased warmth of joints. On my exam: BP 125/68 Pulse 91 Temp 36.4 C (97.6 F) (Temporal) Wt 51.1 kg (112 lb 10.5 oz) SpO2 96% BMI 22.00 kg/m GEN: Aroma of urine CV: RRR w/o m,r,g, nl S1/S2 LUNGS: CTAB w/o w,r,r EXT: no significant ankle edema I have been directly involved in the medical decision making having discussed the patient and the documented plan of care with GRODO partner. Check UA and UCx to R/O UTI Repeat CBC due to leukocytosis Check inflammatory markers as well as SPEP/UPEP OK for trazodone for sleep Sleep hygiene WBC will need follow-up to assure return to normal, especially if no UTI identified Keep appt currently scheduled for 09/13/24 Migdalia Cramer MD documented in this encounter [facility] 08-14-2024 Note HNO ID: [id number] Author: MIGDALIA CRAMER MD Service: ? Author Type: Physician Type: Progress Notes Filed: 08/14/2024 13:57 Note Text: Yusuf Medina is a 88 year old female Patient presents with: Hospital Follow Up Here for ER follow up 08/13/24 ED for weakness and feeling shaky. During assessment, patient indicated that she was feeling better and wanted to go home. Daughter encouraged her to stay for work up. Daughter indicated that Yusuf may have taken both AM and PM medications together by accident. Discussed strategy to prevent this. XR negative for PNA Na 134, Cl 96, BUN 29, GFR 64, creatinine 0.87 H/H 10.9/33.5 mildly low and similar to 2021 Leucocytosis 17.15 UA 1+ protein but otherwise WNL ER to hospital admission 03/07/24 for shoulder and hip pain and leucocytosis. Suspected inflammatory vs infectious process. Rheumatology consult with XR that indicated wrists and knees showed chondrocalcinosis, advised tap of wrists to evaluate for CPPD, which she declined. Lives alone 1-2 family members check in on her 1-3 times daily Family will call her when it is time to take her pills. Family suspects that she can occasionally take her morning and evening pills together. Family has decided to set up her pill box and call her to tell her when to take her mediations. Today patient indicates she feels the same as usual. Intermittent headaches, trouble staying asleep, urinary frequency, generalized weakness, arthralgia. Family thinks her pain, weakness, arthralgia, and trouble staying asleep are gradually worsening. SHAY's. Started years ago, intermittent, unchanged. Not changed by position or bearing down. Alleviating: laying down, closing her eyes. - nausea, - vomiting, - vision changes, + photophobia, - phonophobia. Trouble staying asleep. Family asking for medicine to help sleeping. Melatonin not helpful. PRN Trazodone 2013, wants to try again. Urinary frequency, nocturia x 3 per night, incontinence. This is not new. I advised STOPPING hydrochlorothiazide and INCREASING dose lisinopril but patient declines. Indicates urinary issues are not a problem. Weakness generalized started years ago, patient thinks this is unchanged, family thinks this is gradually worsening over a long period of time. No cough, fever, chills, orthopnea, nausea, vomiting DM Actos 45 mg once daily Glipizide 2.5 mg once daily Metformin 850 mg twice daily 07/11/24 A1C 8.2 Fasting blood sugars 100-110 HTN Lisinopril-hydrochlorothiazide 20/25 mg once daily Norvasc 5 mg once daily 08/13/24 Creatinine 0.87 HPL Pravastatin 20 mg once daily 07/11/24 LDL 71 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/25/2017 CKD (chronic kidney disease) 05/11/2016 Essential hypertension, benign Hyperlipidemia LDL goal < 100 02/12/2014 Intractable low back pain 08/25/2015 Osteoarthrosis, unspecified whether generalized or localized, other specified sites Left hip Plantar fasciitis 05/25/2017 Primary insomnia 05/25/2017 Renal dysfunction Type II or unspecified type diabetes mellitus without mention of complication, not stated as uncontrolled Social History Tobacco Use Smoking status: Never Smokeless tobacco: Never Substance Use Topics Alcohol use: No Drug use: No Current Outpatient Medications on File Prior to Visit Medication Sig glipiZIDE (GLUCOTROL XL) 2.5 mg 24 hr tablet TAKE 1 TABLET BY MOUTH ONCE DAILY lisinopril-hydroCHLOROthiazide (ZESTORETIC) 20-25 mg per tablet Take 1 tablet by mouth once daily. pioglitazone (ACTOS) 45 mg tablet Take 1 tablet by mouth once daily. pravastatin (PRAVACHOL) 20 mg tablet Take 1 tablet by mouth once daily. lansoprazole (PREVACID) 30 mg capsule Take 1 capsule by mouth once daily. amLODIPine (NORVASC) 5 mg tablet TAKE 1 TABLET BY MOUTH ONCE DAILY metFORMIN (GLUCOPHAGE) 850 mg tablet Take 1 tablet by mouth two times a day with meals. meloxicam (MOBIC) 15 mg tablet Take 1 tablet by mouth once daily as needed for pain. DO NOT COMBINE WITH DICLOFENAC GEL blood sugar diagnostic (Giant SwarmTOUCH ULTRA TEST) test strip Test blood sugar once daily lisinopril-hydroCHLOROthiazide (ZESTORETIC) 20-25 mg per tablet Take 1 tablet by mouth once daily for 7 days. SHORT TERM WHILE MAIL ORDER BEING SHIPPED diclofenac (VOLTAREN) 1 % topical gel Apply 2 g to affected area four times daily as needed. No current facility-administered medications on file prior to visit. Patient has no known allergies. Physical Exam: BP 125/68 Pulse 91 Temp 36.4 ?C (97.6 ?F) (Temporal) Wt 51.1 kg (112 lb 10.5 oz) SpO2 96% BMI 22.00 kg/m? GEN: Pleasant female in no acute distress HEENT: Normocephalic/atraumatic; pupils equal, round and reactive; extra-ocular movements intact, mucous membranes moist, oropharynx clear, tympanic membranes clear, external auditory canals clear, nares clear. + mild TTP bilateral temporal area without swelling or eryt (more content not included)... [facility] 08-13-2024 Note SARS-COV-2 (AGENT OF COVID-19) RNA: Not detected INFLUENZA A RNA: Not detected INFLUENZA B RNA: Not detected RESPIRATORY SYNCYTIAL VIRUS (RSV) RNA: Not detected [facility] Comment on above: Performed By: #### B [id number] #### [facility] CLIA [id number] [address] [place] [address] OF [facility] #### [id number] #### [facility] CLIA [id number] [address] [place] [address] STATES OF [facility] 08-13-2024 Telephone encounter Note Called sister in law who is with the patient, patient is American speaking. ? Blood sugar-patient checks every am, did not do today and is not understanding that sister in law would like her to check it now. She did eat this morning Falls recently Concern based on pill box that she may have taken a days Sister-in -law is in agreement that patient needs to be seen in an emergency room-[place] is close. Reason for Disposition [1] Drinking very little AND [2] dehydration suspected (e.g., no urine > 12 hours, very dry mouth, very lightheaded) Answer Assessment - Initial Assessment Questions 1. DESCRIPTION: Describe how you are feeling. Patient speaks American, Sister-in -law is there with her. Patient states she is tired and week. Sister-in -law reports that patient is also confused. 2. SEVERITY: How bad is it? Can you stand and walk? - MILD (0-3): Feels weak or tired, but does not interfere with work, school or normal activities. - MODERATE (4-7): Able to stand and walk; weakness interferes with work, school, or normal activities. - SEVERE (8-10): Unable to stand or walk; unable to do usual activities. Moderate weakness, some difficulty with ambulation which is not her usual 3. ONSET: When did these symptoms begin? (e.g., hours, days, weeks, months) Yesterday 4. CAUSE: What do you think is causing the weakness or fatigue? (e.g., not drinking enough fluids, medical problem, trouble sleeping) Patient has possibly taken an entire days worth of meds this morning. Also reports trouble sleeping 5. NEW MEDICINES: Have you started on any new medicines recently? (e.g., opioid pain medicines, benzodiazepines, muscle relaxants, antidepressants, antihistamines, neuroleptics, beta blockers) No 6. OTHER SYMPTOMS: Do you have any other symptoms? (e.g., chest pain, fever, cough, SOB, vomiting, diarrhea, bleeding, other areas of pain) no Protocols used: Weakness (Generalized) and [id number] [facility] 08-13-2024 Miscellaneous Notes Called sister in law who is with the patient, patient is American speaking. ? Blood sugar-patient checks every am, did not do today and is not understanding that sister in law would like her to check it now. She did eat this morning Falls recently Concern based on pill box that she may have taken a days Sister-in -law is in agreement that patient needs to be seen in an emergency room-[place] is close. Reason for Disposition [1] Drinking very little AND [2] dehydration suspected (e.g., no urine > 12 hours, very dry mouth, very lightheaded) Answer Assessment - Initial Assessment Questions 1. DESCRIPTION: Describe how you are feeling. Patient speaks American, Sister-in -law is there with her. Patient states she is tired and week. Sister-in -law reports that patient is also confused. 2. SEVERITY: How bad is it? Can you stand and walk? - MILD (0-3): Feels weak or tired, but does not interfere with work, school or normal activities. - MODERATE (4-7): Able to stand and walk; weakness interferes with work, school, or normal activities. - SEVERE (8-10): Unable to stand or walk; unable to do usual activities. Moderate weakness, some difficulty with ambulation which is not her usual 3. ONSET: When did these symptoms begin? (e.g., hours, days, weeks, months) Yesterday 4. CAUSE: What do you think is causing the weakness or fatigue? (e.g., not drinking enough fluids, medical problem, trouble sleeping) Patient has possibly taken an entire days worth of meds this morning. Also reports trouble sleeping 5. NEW MEDICINES: Have you started on any new medicines recently? (e.g., opioid pain medicines, benzodiazepines, muscle relaxants, antidepressants, antihistamines, neuroleptics, beta blockers) No 6. OTHER SYMPTOMS: Do you have any other symptoms? (e.g., chest pain, fever, cough, SOB, vomiting, diarrhea, bleeding, other areas of pain) no Protocols used: Weakness (Generalized) and [id number] Patient's caregiver Demetria spoke with the patient this morning. She can hardly walk, and she is extremely tired today. This is not normal for her. Demetria is on her way there to see her, and will be there at 12:15. She would like to speak with a nurse when she gets to the patient's home. She thought she should be seen today. Demetria can be reached at [phone]. documented in this encounter [facility] 08-13-2024 Telephone encounter Note Patient's caregiver Demetria spoke with the patient this morning. She can hardly walk, and she is extremely tired today. This is not normal for her. Demetria is on her way there to see her, and will be there at 12:15. She would like to speak with a nurse when she gets to the patient's home. She thought she should be seen today. Demetria can be reached at [phone]. [facility] 08-10-2024 Telephone encounter Note The following approved medication requests have been transmitted electronically. Requested Prescriptions Signed Prescriptions Disp Refills glipiZIDE (GLUCOTROL XL) 2.5 mg 24 hr tablet 90 tablet 3 Sig: TAKE 1 TABLET BY MOUTH ONCE DAILY Authorizing Provider: WILLIE KAUR APRN.DRAKE [facility] 08-10-2024 Miscellaneous Notes The following approved medication requests have been transmitted electronically. Requested Prescriptions Signed Prescriptions Disp Refills glipiZIDE (GLUCOTROL XL) 2.5 mg 24 hr tablet 90 tablet 3 Sig: TAKE 1 TABLET BY MOUTH ONCE DAILY Authorizing Provider: WILLIE KAUR APRN.CNP Patient has been identified by name and date of : Yes Last office visit in this department: 07/12/2024 RX INSTRUCTIONS: Patient aware RX will be sent to pharmacy. No need to notify patient. Patient phones requesting refills as follows: Requested Prescriptions Pending Prescriptions Disp Refills glipiZIDE XL (GLUCOTROL XL) 2.5 mg 24 hr tablet [Pharmacy Med Name: glipiZIDE ER 2.5 MG Oral Tablet Extended Release 24 Hour] 90 tablet 3 Sig: TAKE 1 TABLET BY MOUTH ONCE DAILY Please review and advise. Sandrita Christianson LPN documented in this encounter [facility] 08-10-2024 Telephone encounter Note Patient has been identified by name and date of : Yes Last office visit in this department: 07/12/2024 RX INSTRUCTIONS: Patient aware RX will be sent to pharmacy. No need to notify patient. Patient phones requesting refills as follows: Requested Prescriptions Pending Prescriptions Disp Refills glipiZIDE XL (GLUCOTROL XL) 2.5 mg 24 hr tablet [Pharmacy Med Name: glipiZIDE ER 2.5 MG Oral Tablet Extended Release 24 Hour] 90 tablet 3 Sig: TAKE 1 TABLET BY MOUTH ONCE DAILY Please review and advise. Sandrita Christianson LPN [facility] 07-19-2024 Telephone encounter Note The following approved medication requests have been transmitted electronically. Requested Prescriptions Signed Prescriptions Disp Refills lisinopril-hydroCHLOROthiazide (ZESTORETIC) 20-25 mg per tablet 90 tablet 3 Sig: Take 1 tablet by mouth once daily. Authorizing Provider: WILLIE KAUR lisinopril-hydroCHLOROthiazide (ZESTORETIC) 20-25 mg per tablet 7 tablet 0 Sig: Take 1 tablet by mouth once daily for 7 days. SHORT TERM WHILE MAIL ORDER BEING SHIPPED Authorizing Provider: WILLIE KAUR APRN.CNP [facility] 07-19-2024 Miscellaneous Notes The following approved medication requests have been transmitted electronically. Requested Prescriptions Signed Prescriptions Disp Refills lisinopril-hydroCHLOROthiazide (ZESTORETIC) 20-25 mg per tablet 90 tablet 3 Sig: Take 1 tablet by mouth once daily. Authorizing Provider: WILLIE KAUR lisinopril-hydroCHLOROthiazide (ZESTORETIC) 20-25 mg per tablet 7 tablet 0 Sig: Take 1 tablet by mouth once daily for 7 days. SHORT TERM WHILE MAIL ORDER BEING SHIPPED Authorizing Provider: WILLIE KAUR APRN.CNP [facility], correction to [facility] pharmacy per message below. Prescription Refill Information The patient has been identified by name and date of : Yes Caregiver verified no other encounters exist for this prescription request: Yes Caregiver confirmed with patient/requestor that no other refills are due, in the near future, with this provider at this time: Yes The last office visit in the department: Does the patient have a future office visit with this provider/department: Yes Requested Prescriptions Pending Prescriptions Disp Refills lisinopril-hydroCHLOROthiazide (ZESTORETIC) 20-25 mg per tablet 90 tablet 3 Sig: Take 1 tablet by mouth once daily. Patients sister in law asked if a short term refill [facility] and then the rest sent to [facility]. Please advise Perla Perez July 19, 2024 9:49 AM documented in this encounter [facility] 07-19-2024 Telephone encounter Note [facility], terminal supervisor to [facility] pharmacy per message below. [facility] 07-19-2024 Telephone encounter Note Prescription Refill Information The patient has been identified by name and date of : Yes Caregiver verified no other encounters exist for this prescription request: Yes Caregiver confirmed with patient/requestor that no other refills are due, in the near future, with this provider at this time: Yes The last office visit in the department: Does the patient have a future office visit with this provider/department: Yes Requested Prescriptions Pending Prescriptions Disp Refills lisinopril-hydroCHLOROthiazide (ZESTORETIC) 20-25 mg per tablet 90 tablet 3 Sig: Take 1 tablet by mouth once daily. Patients sister in law asked if a short term [facility]ill [facility] then [facility] sent to [facility]. Please advise Perla Perez July 19, 2024 9:49 AM [facility] 07-12-2024 Instructions Migdalia Cramer MD - 07/12/2024 9:56 AM EDT Try drinking 1 Glucerna a day to get some extra calories. I don't want you to continue to lose weight. Take all medications exactly as prescribed. Please have labs done again in late August. Keep appointment scheduled for 09/13/24 for Medicare Annual Wellness Visit. documented in this encounter [facility] 07-12-2024 Note HNO ID: [id number] Author: MIGDALIA CRAMER MD Service: ? Author Type: Physician Type: Progress Notes Filed: 07/12/2024 14:26 Note Text: SUBJECTIVE: Yusuf Medina is a 88 year old female who presents for evaluation and treatment of Diabetes Mellitus, Hypertension, and Hyperlipidemia and CKD Here with Demetria MCKEON March 2023 Last virtual April 2023 Had labs done Checking glc in AM, 120 today Checks at night if her mouth feels dry No particularly high or low glucose Took meds this morning Weight down about 11 lbs in 15 months according to chart (they hadn't noticed) Lives alone, does her own cooking She eats 2 meals a day Slice of bread and a sausage for breakfast Soup or stew for lunch Maybe a piece of fruit DM-2 Actos 45mg daily, Glipizide 2.5mg daily, metformin 850 mg twice a day Hypertension Lisinopril/HCTZ 20/25 mg daily, amlodipine 5 mg daily Hyperlipidemia Pravastatin 20 mg daily No CP., palp, inc SOB/STOUT, ankle edema OBJECTIVE: BP 142/70 Pulse 80 Wt 49.3 kg (108 lb 11 oz) BMI 21.23 kg/m? Gen: Appears well, in NAD Neck: thyroid normal size, non-tender, without nodularity Chest: Lungs clear to auscultation. No wheezing, rhonchi, rales. CV: Regular rate and rhythm EXT: no significant lower extremity edema Labs done 07/11/2024 Glucose 244 Estimated GFR 59 BUN 30, creatinine 0.93 Potassium 5.2 Total cholesterol 151, LDL 71, HDL 59 A1c 8.2 (7.7 05/13/2023) ASSESSMENT/PLAN (I10) Essential hypertension (primary encounter diagnosis) (E11.22, N18.30) CKD stage 3 due to type 2 diabetes mellitus (HCC) (I12.9, N18.32) Hypertensive kidney disease with stage 3b chronic kidney disease (HCC) (E11.69, E78.5) Hyperlipidemia associated with type 2 diabetes mellitus (HCC) (HCC) (E11.9) Diabetes mellitus, non-insulin dependent (NIDDM or type II) (HCC) (E78.5) Dyslipidemia (R63.4) Weight loss (D50.9) Iron deficiency anemia, unspecified iron deficiency anemia type Try adding a diabetic drink meal replacement once a day to get some additional calories Confirm she is taking medications as prescribed, continue pravastatin 20 mg for cholesterol Continue Actos 45 mg daily, metformin 850 mg twice a day, and glipizide 2.5 mg daily for diabetes Continue lisinopril/HCTZ 20/25 mg daily for hypertension Check BMP and A1c in 8 weeks Check CBC and TSH She is scheduled for Medicare annual wellness visit on 09/13/2024 We discussed the importance of keeping this visit Migdalia Cramer MD [facility] 07-12-2024 History of Present illness Narrative SUBJECTIVE: Yusuf Medina is a 88 year old female who presents for evaluation and treatment of Diabetes Mellitus, Hypertension, and Hyperlipidemia and CKD Here with Demetria MCKEON March 2023 Last virtual April 2023 Had labs done Checking glc in AM, 120 today Checks at night if her mouth feels dry No particularly high or low glucose Took meds this morning Weight down about 11 lbs in 15 months according to chart (they hadn't noticed) Lives alone, does her own cooking She eats 2 meals a day Slice of bread and a sausage for breakfast Soup or stew for lunch Maybe a piece of fruit DM-2 Actos 45mg daily, Glipizide 2.5mg daily, metformin 850 mg twice a day Hypertension Lisinopril/HCTZ 20/25 mg daily, amlodipine 5 mg daily Hyperlipidemia Pravastatin 20 mg daily \No CP., palp, inc SOB/STOUT, ankle edema OBJECTIVE: BP 142/70 Pulse 80 Wt 49.3 kg (108 lb 11 oz) BMI 21.23 kg/m Gen: Appears well, in NAD Neck: thyroid normal size, non-tender, without nodularity Chest: Lungs clear to auscultation. No wheezing, rhonchi, rales. CV: Regular rate and rhythm EXT: no significant lower extremity edema Labs done 07/11/2024 Glucose 244 Estimated GFR 59 BUN 30, creatinine 0.93 Potassium 5.2 Total cholesterol 151, LDL 71, HDL 59 A1c 8.2 (7.7 05/13/2023) ASSESSMENT/PLAN (I10) Essential hypertension (primary encounter diagnosis) (E11.22, N18.30) CKD stage 3 due to type 2 diabetes mellitus (HCC) (I12.9, N18.32) Hypertensive kidney disease with stage 3b chronic kidney disease (HCC) (E11.69, E78.5) Hyperlipidemia associated with type 2 diabetes mellitus (HCC) (HCC) (E11.9) Diabetes mellitus, non-insulin dependent (NIDDM or type II) (HCC) (E78.5) Dyslipidemia (R63.4) Weight loss (D50.9) Iron deficiency anemia, unspecified iron deficiency anemia type Try adding a diabetic drink meal replacement once a day to get some additional calories Confirm she is taking medications as prescribed, continue pravastatin 20 mg for cholesterol Continue Actos 45 mg daily, metformin 850 mg twice a day, and glipizide 2.5 mg daily for diabetes Continue lisinopril/HCTZ 20/25 mg daily for hypertension Check BMP and A1c in 8 weeks Check CBC and TSH She is scheduled for Medicare annual wellness visit on 09/13/2024 We discussed the importance of keeping this visit Migdalia Cramer MD documented in this encounter [facility] 05-23-2024 Telephone encounter Note Patient has been identified by name and date of : Yes Last office visit in this department: [facility]- 07/12/24 RX INSTRUCTIONS: Patient aware RX will be sent to pharmacy. No need to notify patient. Patient phones requesting refills as follows: Requested Prescriptions Pending Prescriptions Disp Refills glipiZIDE XL (GLUCOTROL XL) 2.5 mg 24 hr tablet 30 tablet 0 Sig: Take 1 tablet by mouth once daily. Please review and advise. Sandrita Christianson LPN [facility] 05-23-2024 Miscellaneous Notes Patient has been identified by name and date of : Yes Last office visit in this department: [facility]- 07/12/24 RX INSTRUCTIONS: Patient aware RX will be sent to pharmacy. No need to notify patient. Patient phones requesting refills as follows: Requested Prescriptions Pending Prescriptions Disp Refills glipiZIDE XL (GLUCOTROL XL) 2.5 mg 24 hr tablet 30 tablet 0 Sig: Take 1 tablet by mouth once daily. Please review and advise. Sandrita Christianson LPN Prescription Refill Information The patient has been identified by name and date of : Yes Caregiver verified no other encounters exist for this prescription request: Yes Caregiver confirmed with patient/requestor that no other refills are due, in the near future, with this provider at this time: Yes The last office visit in the department: Does the patient have a future office visit with this provider/department: Yes Requested Prescriptions Pending Prescriptions Disp Refills glipiZIDE XL (GLUCOTROL XL) 2.5 mg 24 hr tablet 30 tablet 0 Sig: Take 1 tablet by mouth once daily. Patient [facility] 90 day supply [facility] to [facility] se[facility] only has 2 pills left Perla Perez May 23, 2024 10:28 AM documented in this encounter [facility] 05-23-2024 Telephone encounter Note Prescription Refill Information The patient has been identified by name and date of : Yes Caregiver verified no other encounters exist for this prescription request: Yes Caregiver confirmed with patient/requestor that no other refills are due, in the near future, with this provider at this time: Yes The last office visit in the department: Does the patient have a future office visit with this provider/department: Yes Requested Prescriptions Pending Prescriptions Disp Refills glipiZIDE XL (GLUCOTROL XL) 2.5 mg 24 hr tablet 30 tablet 0 Sig: Take 1 tablet by mouth once daily. Patient needs a short term refill sent to [facility] and a 90 day supply sent to [facility] only has 2 pills left Perla Perez May 23, 2024 10:28 AM [facility] 04-26-2024 Telephone encounter Note Scheduled for Medicare AWV 09/13/24 Has lab orders The following approved medication requests have been transmitted electronically. Requested Prescriptions Signed Prescriptions Disp Refills pioglitazone (ACTOS) 45 mg tablet 90 tablet 3 Sig: Take 1 tablet by mouth once daily. Authorizing Provider: MIGDALIA CRAMER MD [facility] 04-26-2024 Miscellaneous Notes Scheduled for Medicare AWV 09/13/24 Has lab orders The following approved medication requests have been transmitted electronically. Requested Prescriptions Signed Prescriptions Disp Refills pioglitazone (ACTOS) 45 mg tablet 90 tablet 3 Sig: Take 1 tablet by mouth once daily. Authorizing Provider: MIGDALIA CRAMER MD Patient has been identified by name and date of : Yes Last office visit in this department: 04/13/2023 [facility] health: 04/23/2023 FOV: 07/12/2024 RX INSTRUCTIONS: Patient aware RX will be sent to pharmacy. No need to notify patient. Patient phones requesting refills as follows: Requested Prescriptions Pending Prescriptions Disp Refills pioglitazone (ACTOS) 45 mg tablet [Pharmacy Med Name: Pioglitazone HCl 45 MG Oral Tablet] 90 tablet 3 Sig: TAKE 1 TABLET BY MOUTH ONCE DAILY Please review and advise. Jame Hernandez MA documented in this encounter [facility] 04-26-2024 Telephone encounter Note Patient has been identified by name and date of : Yes Last office visit in this department: 04/13/2023 Distance health: 04/23/2023 FOV: 07/12/2024 RX INSTRUCTIONS: Patient aware RX will be sent to pharmacy. No need to notify patient. Patient phones requesting refills as follows: Requested Prescriptions Pending Prescriptions Disp Refills pioglitazone (ACTOS) 45 mg tablet [Pharmacy Med Name: Pioglitazone HCl 45 MG Oral Tablet] 90 tablet 3 Sig: TAKE 1 TABLET BY MOUTH ONCE DAILY Please review and advise. Jame Hernandez MA [facility] 04-16-2024 Telephone encounter Note Spoke with in Demetria saenz and explained that her current Rx is for Glipizide/Glucotrol 2.5 mg once daily - not for Glyburide. Verbalized understanding. No further questions. [facility] 04-16-2024 Miscellaneous Notes Spoke with Demetria caldwell and explained that her current Rx is for Glipizide/Glucotrol 2.5 mg once daily - not for Glyburide. Verbalized understanding. No further questions. Patients sister in law Augustin called and needs clarification on the patient diabetes medications she stated that she got a call from [employer] stating that she had glyburide ready for cook pickled meat but she thought she was supposed to be taking glipizide. Please advise documented in this encounter [facility] 04-16-2024 Telephone encounter Note Patients sister in law Augustin called and needs clarification on the patient diabetes medications she stated that she got a call from [facility] stating that she had glyburide ready for cook pickled meat but she thought she was supposed to be taking glipizide. Please advise [facility] 03-21-2024 Note HNO ID: [id number] Author: GERTRUDIS BILL DO Service: ? Author Type: Physician Type: Progress Notes Filed: 03/21/2024 11:02 Note Text: Type 2 diabetes mellitus without retinopathy (hcc) (primary encounter diagnosis) Hemoglobin A1C (%) Date Value 05/13/2023 7.7 10/12/2021 7.4 Encouraged tight blood pressure and glucose control. Pseudophakia I have confirmed and edited as necessary the relevant HPI, ophthalmic history, ROS, and the neuro exam findings as obtained by others. I have seen and examined Yusuf Medina. I have discussed the case and the management of this patient's care with the Resident/Fellow, if applicable. I also have reviewed and agree with the assessment and plan as stated above and agree with all of its relevant components. [facility] 03-21-2024 History of Present illness Narrative Type 2 diabetes mellitus without retinopathy (hcc) (primary encounter diagnosis) Hemoglobin A1C (%) Date Value 05/13/2023 7.7 10/12/2021 7.4 Encouraged tight blood pressure and glucose control. Pseudophakia I have confirmed and edited as necessary the relevant HPI, ophthalmic history, ROS, and the neuro exam findings as obtained by others. I have seen and examined Yusuf Medina. I have discussed the case and the management of this patient's care with the Resident/Fellow, if applicable. I also have reviewed and agree with the assessment and plan as stated above and agree with all of its relevant components. documented in this encounter [facility] 03-13-2024 Note HNO ID: [id number] Author: LIEN MEJIA MA Service: ? Author Type: Fish Hatchery Inspector Type: Progress Notes Filed: 03/13/2024 17:00 Note Text: POPULATION HEALTH NAVIGATION OUTREACH Action/FYI Order approved by provider. Demetria hahn. Reason for Outreach Community Monitoring/Network Navigator [employer] Phone Line: Phone Line Patient Contacted: Spoke to patient/parent/or legal guardian Patient identified by name and : Yes Community Monitoring/Network Navigator P[employer] AND Phone Line actions taken: No action needed Navigation Signature: Lien Mejia MA March 13, 2024 4:52 PM [facility] 03-13-2024 History of Present illness Narrative POPULATION HEALTH NAVIGATION OUTREACH Action/FYI Order approved by provider. Demetria hahn. Reason for Outreach Community Monitoring/Network Navigator Pools & Phone Line: Phone Line Patient Contacted: Spoke to patient/parent/or legal guardian Patient identified by name and : Yes Community Monitoring/Network Navigator Pools & Phone Line actions taken: No action needed Navigation Signature: Lien Mejia MA March 13, 2024 4:52 PM POPULATION HEALTH NAVIGATION OUTREACH Action/FYI Spoke with [id number] Demetria. Patient is on [facility] for the following HM care gaps: Schedule wellness visit - Appointment scheduled for 09/13/24. Schedule follow up - Appointment scheduled for 07/12/24. Dilated Retinal Exam - Appointment scheduled for 03/21/24. Colorectal Cancer Screening - Colonoscopy, FOBT and FIT testing declined. HBA1C - Please file pending order and add any orders required or preferred and notify me when signed so the patient can be informed. HCC Gap Closure Reason for Outreach Care Gap/HCC or Scheduling Wellness Visits Care Gaps due: Medicare Annual Wellness Visit Follow-up Appointment Colorectal Cancer Screening Diabetic Eye Exam HBA1C Patient Contacted: Spoke to patient/parent/or legal guardian Patient identified by name and : Yes Care Gap/HCC/Scheduling Wellness actions taken: Patient scheduled/pended labs: Medicare Annual Wellness Visit Follow-up Appointment Diabetic Eye Exam HBA1C 03/21/2024 in [facility] with KOSMORSKY, GERTRUDIS S - Dilated Retinal Exam 04/12/2024 in [facility] with ADITI CAMARGO - CARISAU pseudogout 07/12/2024 in [facility] with MIGDALIA CRAMER - Follow Up, HCC Gap Closure 09/13/2024 in [facility] with MIGDALIA CRAMER - AWV Due HCC related Navigation Signature: Lien Mejia MA March 13, 2024 2:52 PM documented in this encounter [facility] 03-13-2024 Note HNO ID: [id number] Author: LIEN MEJIA MA Service: ? Author Type: Fish Hatchery Inspector Type: Progress Notes Filed: 03/13/2024 17:00 Note Text: POPULATION HEALTH NAVIGATION OUTREACH Action/FYI Spoke with [id number] Demetria. Patient is on [facility] for the following HM care gaps: Schedule wellness visit - Appointment scheduled for 09/13/24. Schedule follow up - Appointment scheduled for 07/12/24. Dilated Retinal Exam - Appointment scheduled for 03/21/24. Colorectal Cancer Screening - Colonoscopy, FOBT and FIT testing declined. HBA1C - Please file pending order and add any orders required or preferred and notify me when signed so the patient can be informed. HCC Gap Closure Reason for Outreach Care Gap/HCC or Scheduling Wellness Visits Care Gaps due: Medicare Annual Wellness Visit Follow-up Appointment Colorectal Cancer Screening Diabetic Eye Exam HBA1C Patient Contacted: Spoke to patient/parent/or legal guardian Patient identified by name and : Yes Care Gap/HCC/Scheduling Wellness actions taken: Patient scheduled/pended labs: Medicare Annual Wellness Visit Follow-up Appointment Diabetic Eye Exam HBA1C 03/21/2024 in [facility] with GERTRUDIS BILL - Dilated Retinal Exam 04/12/2024 in [facility] with ADITI CAMARGO - HFU pseudogout 07/12/2024 in [facility] with MIGDALIA CRAMER - Follow Up, HCC Gap Closure 09/13/2024 in [facility] with MIGDALIA CRAMER - AWV Due HCC related Navigation Signature: Lien Mejia MA March 13, 2024 2:52 PM [facility] 03-13-2024 Note Patient Outreach (LENNOX TNAV) YUSUF MEDINA ([id number]) 1935 [address] Date Time Provider Department 03/13/24 LIEN MEJIA During your visit today, we recorded the following information about you: Lien Mejia MA 03/13/2024 5:00 PM Signed POPULATION HEALTH NAVIGATION OUTREACH Action/FYI Spoke with [id number] Demetria. Patient is on [facility] for the following HM care gaps: Schedule wellness visit - Appointment scheduled for 09/13/24. Schedule follow up - Appointment scheduled for 07/12/24. Dilated Retinal Exam - Appointment scheduled for 03/21/24. Colorectal Cancer Screening - Colonoscopy, FOBT and FIT testing declined. HBA1C - Please file pending order and add any orders required or preferred and notify me when signed so the patient can be informed. HCC Gap Closure Reason for Outreach Care Gap/HCC or Scheduling Wellness Visits Care Gaps due: Medicare Annual Wellness Visit Follow-up Appointment Colorectal Cancer Screening Diabetic Eye Exam HBA1C Patient Contacted: Spoke to patient/parent/or legal guardian Patient identified by name and : Yes Care Gap/HCC/Scheduling Wellness actions taken: Patient scheduled/pended labs: Medicare Annual Wellness Visit Follow-up Appointment Diabetic Eye Exam HBA1C 03/21/2024 in [facility] with GERTRUDIS BILL - Dilated Retinal Exam 04/12/2024 in [facility] with ADITI CAMARGO - HFU pseudogout 07/12/2024 in [facility] with MIGDALIA CRAMER - Follow Up, HCC Gap Closure 09/13/2024 in [facility] with MIGDALIA CRAMER - AWV Due HCC related Navigation Signature: Lien Mejia MA March 13, 2024 2:52 PM Lien Mejia MA 03/13/2024 5:00 PM Signed POPULATION HEALTH NAVIGATION OUTREACH Action/FYI Order approved by provider. Demetria hahn. Reason for Outreach Community Monitoring/Network Navigator Pools AND Phone Line: Phone Line Patient Contacted: Spoke to patient/parent/or legal guardian Patient identified by name and : Yes Community Monitoring/Network Navigator Pools AND Phone Line actions taken: No action needed Navigation Signature: Lien Mejia MA March 13, 2024 4:52 PM Allergies As of Date: 03/13/2024 (No Known Allergies) Date Reviewed: 04/23/2023 Reviewed by: Sandrita Christianson LPN - Fully Assessed Reason for Visit: Population Health Navigation Outreach [3910] Cmt: [facility] [place] [facility] Primary Visit Diagnosis:Diabetes mellitus, non-insulin dependent (NIDDM or type II) (HCC) [E11.9] Other Visit Diagnoses:Hyperlipidemia associated with type 2 diabetes mellitus (HCC) (HCC) [E11.69, E78.5] Essential hypertension [I10] Order(s):HEMOGLOBIN A1C [[id number]] Order #: [id number] FUTURE BASIC METABOLIC PANEL [SQBMP] Order #: [id number] FUTURE LIPID PANEL, NONFASTING [SQLIPNF] Order #: [id number] FUTURE ALBUMIN/CREATININE RATIO, URINE [SQUACR] Order #: [id number] FUTURE Prescriptions as of 03/13/2024 - pravastatin (PRAVACHOL) 20 mg tablet Take 1 tablet by mouth once daily. - pravastatin (PRAVACHOL) 20 mg tablet Take 1 tablet by mouth once daily for 14 days. - lansoprazole (PREVACID) 30 mg capsule Take 1 capsule by mouth once daily for 14 days. - lansoprazole (PREVACID) 30 mg capsule Take 1 capsule by mouth once daily. - amLODIPine (NORVASC) 5 mg tablet TAKE 1 TABLET BY MOUTH ONCE DAILY - lisinopril-hydroCHLOROthiazide (ZESTORETIC) 20-25 mg per tablet TAKE 1 TABLET BY MOUTH ONCE DAILY - metFORMIN (GLUCOPHAGE) 850 mg tablet Take 1 tablet by mouth two times a day with meals for 7 days. - metFORMIN (GLUCOPHAGE) 850 mg tablet Take 1 tablet by mouth two times a day with meals. - meloxicam (MOBIC) 15 mg tablet Take 1 tablet by mouth once daily as needed for pain. DO NOT COMBINE WITH DICLOFENAC GEL - glipiZIDE (GLUCOTROL XL) 2.5 mg 24 hr tablet Take 1 tablet by mouth once daily. - glipiZIDE (GLUCOTROL XL) 2.5 mg 24 hr tablet Take 1 tablet by mouth once daily. - metFORMIN (GLUCOPHAGE) 850 mg tablet Take 1 tablet by mouth twice daily with meals. - pioglitazone (ACTOS) 45 mg tablet TAKE 1 TABLET BY MOUTH ONCE DAILY - blood sugar diagnostic ([employer] ULTRA TEST) test strip Test blood sugar once daily - diclofenac (VOLTAREN) 1 % topical gel Apply 2 g to affected area four times daily as needed. - polyethylene glycol 3350 (MIRALAX) 17 gram/dose powder 1 capful dissolved in 8 oz water once daily as needed for regular stools. Can use daily. Meds Comments as of 03/30/2022: 03/30/22 The medications are managed by this patient by: CAREGIVER José Miguel Swanson [facility] Problem List As Of Date 03/13/2024 Noted Resolved Osteoarth NOS-other site [M19.90] 09/15/2011 BENIGN HYPERTENSION [I10] 12/01/2016 Diabetes mellitus without mention of complicati*04/10/2003 05/24/2011 Esophageal reflux [K21.9] 06/15/2006 Lumbago [M54.50] 05/31/2007 09/15/2011 Urgency of urination [R39.15] (more content not included)... [facility] 02-28-2024 Miscellaneous Notes The following approved medication requests have been transmitted electronically. Requested Prescriptions Signed Prescriptions Disp Refills lansoprazole (PREVACID) 30 mg capsule 90 capsule 3 Sig: Take 1 capsule by mouth once daily. Authorizing Provider: WILLIE KAUR APRN.BAG [place] Order pended for mail Last OV-04/23/2023 [facility] Next OV-none Director Of Restaurant Operations is calling ,asking for a refill on the following medications . pravastatin (PRAVACHOL) 20 mg tablet 90 tablet 3 10/23/2022 10/23/2023 Sig: Take 1 tablet by mouth once daily. Sent to pharmacy as: pravastatin (PRAVACHOL) 20 mg tablet Class: Normal Route: ORAL Order: [id number] E-Prescribing Status: Receipt confirmed by pharmacy (10/23/2022 9:10 AM EST) She doesn't have many left , they are asking for this fill to be sent to the [facility] . Then if she gets refills send it to the mail in pharmacy . Please advise and route back so we can make inserting machine operator aware . Thanks documented in this encounter [facility] 02-01-2024 Miscellaneous Notes The following approved medication requests have been transmitted electronically. Requested Prescriptions Signed Prescriptions Disp Refills lisinopril-hydroCHLOROthiazide (ZESTORETIC) 20-25 mg per tablet 90 tablet 3 Sig: TAKE 1 TABLET BY MOUTH ONCE DAILY Authorizing Provider: WILLIE KAUR APRN.CNP documented in this encounter [facility] 02-01-2024 Miscellaneous Notes The following approved medication requests have been transmitted electronically. 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 Request denied no further action needed. 7 day short term Rx sent to [facility] on 01/11/24. 1 year correction Rx sent to [facility] on 01/11/24. Please call to clarify if anything is needed. Pended Rx in this encounter is another 7 day supply Metformin. Willie Kaur APRN.DRAKE Patient has been identified by name and date of : Yes Last office visit in this department: 04/13/2023 No FOV scheduled RX INSTRUCTIONS: Patient aware RX will be sent to pharmacy. No need to notify patient. Patient phones requesting refills as follows: Requested Prescriptions Pending Prescriptions Disp Refills metFORMIN (GLUCOPHAGE) 850 mg tablet 14 tablet 0 Sig: Take 1 tablet by mouth two times a day with meals for 7 days. Please review and advise. Jame Hernandez MA [facility] Willie Kaur APRN.DRAKE Order Providers Prescribing Provider Encounter Provider Willie Kaur APRN.Migdalia Victoria MD Outpatient Medication Detail Disp Refills Start End metFORMIN (GLUCOPHAGE) 850 mg tablet 14 tablet 0 01/11/2024 01/18/2024 Sig: Take 1 tablet by mouth two times a day with meals for 7 days. Sent to pharmacy as: metFORMIN (GLUCOPHAGE) 850 mg tablet Class: Normal Route: ORAL Order: [id number] E-Prescribing Pt states she is completely out and mail order has not come in would like a short supply sent to [facility] [place] documented in this encounter [facility] 01-11-2024 Miscellaneous Notes The following approved medication requests have been transmitted electronically. Requested Prescriptions Signed Prescriptions Disp Refills metFORMIN (GLUCOPHAGE) 850 mg tablet 14 tablet 0 Sig: Take 1 tablet by mouth two times a day with meals for 7 days. Authorizing Provider: WILLIE KAUR metFORMIN (GLUCOPHAGE) 850 mg tablet 180 tablet 3 Sig: Take 1 tablet by mouth two times a day with meals. Authorizing Provider: WILLIE KAUR APRN.BAG [place]VER Patient has been identified by name and date of : Yes Last office visit in this department: 04/13/2023 RX INSTRUCTIONS: Patient aware RX will be sent to pharmacy. No need to notify patient. Patient phones requesting refills as follows: Requested Prescriptions Pending Prescriptions Disp Refills metFORMIN (GLUCOPHAGE) 850 mg tablet 14 tablet 0 Sig: Take 1 tablet by mouth two times a day with meals for 7 days. Contacted Demetria to confirm how many tablets patient has left. Patient has 4 more pills. Demetria is requesting for temporary supply to be sent to [facility] while they wait for [facility] for 90 day supply. Please review and advise. Jame Hernandez MA Yusuf Carol called today. Reason : Yusuf inserting machine operator is calling today , she states the patient is almost out of the following medications . She would like a refill : Disp Refills Start End metFORMIN (GLUCOPHAGE) 850 mg tablet 14 tablet 0 10/14/2023 10/21/2023 Sig: Take 1 tablet by mouth two times a day with meals for 7 days. Sent to pharmacy as: metFORMIN (GLUCOPHAGE) 850 mg tablet Class: Normal Route: ORAL Order: [id number] E-Prescribing Status: Receipt confirmed by pharmacy (10/14/2023 2:49 PM EST) Please advise and route back so caregiver can be updated . Thanks documented in this encounter [facility] 10-14-2023 Miscellaneous Notes The following approved medication requests have been transmitted electronically. Requested Prescriptions Signed Prescriptions Disp Refills metFORMIN (GLUCOPHAGE) 850 mg tablet 14 tablet 0 Sig: Take 1 tablet by mouth two times a day with meals for 7 days. Authorizing Provider: WILLIE KAUR APRN.CNP Patient has been identified by name and date of : Yes Last office visit in this department: 04/13/2023 No FOV scheduled RX INSTRUCTIONS: Patient aware RX will be sent to pharmacy. No need to notify patient. Patient phones requesting refills as follows: Requested Prescriptions Pending Prescriptions Disp Refills metFORMIN (GLUCOPHAGE) 850 mg tablet 180 tablet 3 Sig: Take 1 tablet by mouth two times a day with meals. Please review and advise. Jame Hernandez MA Patient also needs an emergency script sent to [facility] on [address] in [place]. Patient has been identified by name and date of : Yes Requested Prescriptions Pending Prescriptions Disp Refills metFORMIN (GLUCOPHAGE) 850 mg tablet 180 tablet 3 Sig: Take 1 tablet by mouth two times a day with meals. RX INSTRUCTIONS: Patient aware RX escripted to mail away pharmacy. No need to notify patient. Dinora Perez documented in this encounter [facility] 09-06-2023 Miscellaneous Notes The following approved medication requests have been transmitted electronically. Requested Prescriptions Signed Prescriptions Disp Refills lansoprazole (PREVACID) 30 mg capsule 90 capsule 3 Sig: TAKE 1 CAPSULE BY MOUTH ONCE DAILY Authorizing Provider: WILLIE KAUR APRN.CNP Patient has been identified by name and date of : Yes Last office visit in this department: 04/13/2023 No FOV scheduled RX INSTRUCTIONS: Patient aware RX will be sent to pharmacy. No need to notify patient. Patient phones requesting refills as follows: Requested Prescriptions Pending Prescriptions Disp Refills lansoprazole (PREVACID) 30 mg capsule [Pharmacy Med Name: Lansoprazole 30 MG Oral Capsule Delayed Release] 90 capsule 3 Sig: TAKE 1 CAPSULE BY MOUTH ONCE DAILY Please review and advise. Jame Hernandez MA documented in this encounter [facility] 08-31-2023 Miscellaneous Notes Called the number on the chart and confirmed with inserting machine operator that the medication has been sent as well as the mail order. No further action is required. Thanks Please notify that short term and mail order sent The following approved medication requests have been transmitted electronically. Requested Prescriptions Signed Prescriptions Disp Refills glipiZIDE (GLUCOTROL XL) 2.5 mg 24 hr tablet 30 tablet 0 Sig: Take 1 tablet by mouth once daily. Authorizing Provider: WILLIE KAUR glipiZIDE (GLUCOTROL XL) 2.5 mg 24 hr tablet 90 tablet 3 Sig: Take 1 tablet by mouth once daily. Authorizing Provider: WILLIE KAUR APRN.DRAKE Contacted Demetria who states patient is out of Glipizide as of today, she took her last pill today. Informed her that 1 year supply was sent to [facility] pharmacy on 06/02/23. Demetria states that's the problem, all her medications need to go through mail order as her insurance will not cover medications sent to [facility]. Informed her that will send high priority to provider to send short term supply of medication to pharmacy today so it can be picked up and terminal supervisor supply to be sent through mail order. Demetria agreeable and verbalized understanding. Please advise Thank you! Please call to review with Demetria the pharmacy issue for patient's Glipizide. She is asking for a call today as the patient has 1 left. documented in this encounter [facility] 06-23-2023 Miscellaneous Notes The following approved medication requests have been transmitted electronically. Requested Prescriptions Signed Prescriptions Disp Refills metFORMIN (GLUCOPHAGE) 850 mg tablet 180 tablet 3 Sig: Take 1 tablet by mouth twice daily with meals. Authorizing Provider: WILLIE KAUR APRN.BAG [place]VER Patient has been identified by name and date of : Yes Last office visit in this department: 04/13/2023 FOV: 06/30/2023 RX INSTRUCTIONS: Patient aware RX will be sent to pharmacy. No need to notify patient. Patient phones requesting refills as follows: Requested Prescriptions Pending Prescriptions Disp Refills metFORMIN (GLUCOPHAGE) 850 mg tablet 180 tablet 3 Sig: Take 1 tablet by mouth twice daily with meals. Patient requesting different pharmacy Please review and advise. Jame Hernandez MA Patient has been identified by name and date of : Yes Requested Prescriptions Pending Prescriptions Disp Refills metFORMIN (GLUCOPHAGE) 850 mg tablet 180 tablet 3 Sig: Take 1 tablet by mouth twice daily with meals. RX INSTRUCTIONS: Patient aware RX will be sent to pharmacy. No need to notify patient. Laura Hay Pss documented in this encounter [facility] 06-03-2023 Miscellaneous Notes Called and left VM. Morro Tomas, Patient Clothing Man 1st attempt Lvm , will try again at a later time Thanks Please let patient know that Rx has been refilled. The following approved medication requests have been transmitted electronically. Requested Prescriptions Signed Prescriptions Disp Refills glipiZIDE (GLUCOTROL XL) 2.5 mg 24 hr tablet 90 tablet 3 Sig: Take 1 tablet by mouth once daily. Authorizing Provider: WILLIE KAUR APRN.CNP Patient has been identified by name and date of : Yes Last office visit in this department: 04/13/2023 FOV: 06/30/2023 RX INSTRUCTIONS: Patient aware RX will be sent to pharmacy. No need to notify patient. Patient phones requesting refills as follows: Requested Prescriptions Pending Prescriptions Disp Refills glipiZIDE XL (GLUCOTROL XL) 2.5 mg 24 hr tablet 90 tablet 3 Sig: Take 1 tablet by mouth once daily. The patient only has one more tablet. Caregiver is wondering if the medication could be automatically renewed so they do not have to worry about running out Requesting medication to be sent to a different pharmacy. Please review and advise. Jame Hernandez MA Patient has been identified by name and date of : Yes Requested Prescriptions Pending Prescriptions Disp Refills glipiZIDE XL (GLUCOTROL XL) 2.5 mg 24 hr tablet 90 tablet 3 Sig: Take 1 tablet by mouth once daily. The patient only has one more tablet. Caregiver is wondering if the medication could be automatically renewed so they do not have to worry about running out. RX INSTRUCTIONS: Patient aware RX will be sent to pharmacy. Patient would like the medication sent to the [facility] [address] [place] [address] Leanne Ding documented in this encounter [facility] 05-12-2023 Miscellaneous Notes 7.6 (03/08/2023) documented in this encounter [facility] 04-28-2023 History of Present illness Narrative POPULATION HEALTH NAVIGATION OUTREACH Action/FYI Patient Outreach: Left voicemail for patient to call back to schedule in RST. (Please see Epic order dated for (03/17/2023). Any agent can assist with scheduling. Patient Identified by Name and : NO Outreach Outcome/Action Unable to reach patient: Left message Did you use a PCP flex slot to schedule this appointment? No Reason for Outreach Care Gap or Scheduling/Wellness visits Payer: Payor: [facility] MED[facility] / Plan: [facility] MEDICARE ADVANTAGE PPO / Product Type: PPO / Care Gap Reviewed:: Specialty Scheduling Reminder: Reminder note to check Health Maintenance for items below Health Maintenance items due: COVID-19 VACCINE(1) Never done DTAP,TDAP,TD(1 - Tdap) Never done COLORECTAL CANCER SCREENING due on 06/15/2012 SHINGRIX VACCINE(2 of 3) due on 03/19/2015 DILATED RETINAL EXAM due on 12/07/2018 ADVANCE DIRECTIVE DISCUSSION due on 11/14/2022 DEPRESSION ASSESSMENT Never done Navigation Signature: Margie Rodríguez Pss April 28, 2023 12:52 PM documented in this encounter [facility] 04-20-2023 Miscellaneous Notes Contacted patient's caregiver Demetria, informed her of provider's message below. Please notify patient that I sent glucometer and testing solution to [facility] If they need any other supplies please let us know. The following approved medication requests have been transmitted electronically. Requested Prescriptions Signed Prescriptions Disp Refills Blood-Glucose Meter 1 Each 0 Sig: Test One time a day. Insulin Dep? No E11.9 DM 2 Authorizing Provider: WILLIE KAUR Blood Glucose Control, Normal soln 1 Each 0 Sig: Use testing solution to calibrate glucometer as needed Authorizing Provider: WILLIE KAUR APRN.CNP Contacted patient's caregiver Demetria who states patient's blood sugar monitor is 10 or more years old and patient's blood sugar read 25, then it read in the 200's when re-checked it right after. Demetria wondering if patient's blood glucose monitor working correctly & if she needs a new one? Please advise Thank you Patient's inserting machine operator Demetria calling with a question for a nurse regarding the patient's blood glucose monitor. Please call. TY documented in this encounter [facility] 04-20-2023 Miscellaneous Notes Caregiver made aware Appointment changed and Lvm for patient to make her and caregiver aware . Thanks Phone visit is fine Please change appointment type Willie Kaur APRN.DRAKE Demetria called regarding patient's upcoming appointment asking if it ok to do a phone visit as she is unable to bring her in. Please send response back to me and I will call and advise Demetria and change appt if ok. TY documented in this encounter [facility] 04-13-2023 Instructions Willie Kaur APRN.DRAKE - 04/13/2023 3:33 PM EDT CONTINUE Actos 45 mg once daily REDUCE DOSE Instead of 1000 mg Metformin twice daily, you should decrease dose to 850 mg twice daily START 2.5 mg Glipizide If you develop dizziness, light headedness, sweating, nausea, shakiness check your blood sugar to see if you are dropping too low documented in this encounter [facility] 04-13-2023 History of Present illness Narrative SUBJECTIVE: Yusuf Medina is a 87 year old female who presents for evaluation and treatment of Diabetes Mellitus Exercise: sedentary Diet: sometimes follows diabetic diet She administers her own medications and checks her own blood sugars at home Good family support, Demetria here today DIABETES MELLITUS: Since our last visit she denies excessive thirst or increased frequency of urination, chest pain or dyspnea , numbness, tingling or pain in extremities, new or unusual visual symptoms, low sugar/hypoglycemic reactions, weight loss/gain, lightheadedness/dizziness, and bowel changes/loose stools. Denies hypoglycemia. Follow a diabetic diet some of the time. She is compliant with medication(s) and is tolerating med(s) without any side effects. Home blood sugars from 04/08 - 04/13. Post prandial 275, 260, 275, 235 Fasting 203, 189, 260, 203, 231, 212 Metformin 1000 mg twice daily Actos 45 mg once daily 2.5 mg Glipizide stopped 03/09/23 due to reports of dizziness while taking Glipizide. The dizzy episodes improved after stopping the Glipizide. Will continue current dose Metformin and Actos until she sees Clinical Pharmacy. We discussed risks, benefits, alternatives to restarting Glipizide [place] are most comfortable restarting Glipizide We will decrease Metformin dose to previous 850 mg twice daily I recommended they test Clare's blood sugar if she gets a dizzy episode to see if her blood sugar is low I encouraged them to schedule a consult with Clinical Pharmacy, referral placed 04/08/23. Demetria indicates that it is inconvenient to keep coming to the doctor to take care of the diabetes. Demetria must come to act as agricultural economist, they decline agricultural economist. Patients last HgbA1C was Hemoglobin A1C (%) Date Value 03/08/2023 7.6 10/21/2022 7.5 04/27/2022 7.1 10/12/2021 7.4 09/10/2020 6.7 01/24/2020 6.8 ). Last BP 04/13/23 : 125/63 03/29/23 : 150/71 03/17/23 : 146/67 CKD3 Creatinine Date Value Ref Range Status 03/09/2023 0.92 0.58 - 0.96 mg/dL Final Demetria as agricultural economist Declines [facility] agricultural economist Current Outpatient Medications on File Prior to Visit Medication Sig metFORMIN (GLUCOPHAGE) 1,000 mg tablet Take 1 tablet by mouth twice daily with meals. blood sugar diagnostic ([employer] ULTRA TEST) test strip Test blood sugar once daily diclofenac (VOLTAREN) 1 % topical gel Apply 2 g to affected area four times daily as needed. amLODIPine (NORVASC) 5 mg tablet TAKE 1 TABLET BY MOUTH ONCE DAILY lisinopril-hydroCHLOROthiazide (ZESTORETIC) 20-25 mg per tablet TAKE 1 TABLET BY MOUTH ONCE DAILY meloxicam (MOBIC) 15 mg tablet TAKE 1 TABLET BY MOUTH ONCE DAILY NEEDED FOR PAIN pravastatin (PRAVACHOL) 20 mg tablet Take 1 tablet by mouth once daily. lansoprazole (PREVACID) 30 mg capsule TAKE 1 CAPSULE BY MOUTH ONCE DAILY pioglitazone (ACTOS) 45 mg tablet TAKE 1 TABLET BY MOUTH ONCE DAILY polyethylene glycol 3350 (MIRALAX) 17 gram/dose powder 1 capful dissolved in 8 oz water once daily as needed for regular stools. Can use daily. (Patient taking differently: 1 capful dissolved in 8 oz water once daily as needed for regular stools. Can use daily. Uses every morning per patient) metFORMIN (GLUCOPHAGE) 1,000 mg tablet Take 1 tablet by mouth twice daily with meals for 7 days. No current facility-administered medications on file prior to visit. Social History Tobacco Use Smoking status: Never Smokeless tobacco: Never Substance Use Topics Alcohol use: No Drug use: No OBJECTIVE: BP 125/63 Pulse 80 Temp 36.7 C (98 F) (Temporal Artery) Wt 54.1 kg (119 lb 3.2 oz) BMI 23.28 kg/m Gen: Appears well, in NAD Neck: normal, supple, and thyroid normal size, non-tender, without nodularity Chest: Lungs clear to auscultation. No wheezing, rhonchi, rales. CV: normal, Regular rate and rhythm, no murmurs, clicks, or gallops. EXT: no significant lower extremity edema ASSESSMENT/PLAN: 1. Diabetes mellitus, non-insulin dependent (NIDDM or type II) ([facility]) - ICD9: 250.00, ICD10: E11.9 (primary diagnosis) - Home blood sugars from 04/08 - 04/13: Post prandial 275, 260, 275, 235. Fasting 203, 189, 260, 203, 231, 212. - We discussed risks, benefits, alternatives to restarting Glipizide, previously stopped due to concern for hypoglycemia - Demetria and Yusuf are most comfortable restarting Glipizide - I recommended they test Clare's blood sugar if she gets a dizzy episode to see if her blood sugar is low - I encouraged them to schedule a consult with Clinical Pharmacy, referral placed 04/08/23. Demetria indicates that it is inconvenient to keep coming to the doctor to take care of the diabetes. Demetria must come to act as agricultural economist, they decline agricultural economist. - GLIPIZIDE ER 2.5 MG TABLET, EXTENDED RELEASE 24 HR 2. CKD stage 3 due to type 2 diabetes mellitus (HCC) - ICD9: 250.40, 585.3, ICD10: E11.22, N18.30 - Stable Willie Kaur APRN.DRAKE documented in this encounter [facility] 03-29-2023 Instructions Willie Kaur APRN.CNP - 03/29/2023 3:50 PM EDT Check blood sugar once per day Tuesday - check in morning Tuesday - check in evening Tuesday - check in morning Tuesday - check in evening - check in morning Tuesday - check in evening Tuesday - check in morning documented in this encounter [facility] 03-29-2023 History of Present illness Narrative SUBJECTIVE: Yusuf Medina is a 87 year old female who presents for 2 week evaluation and treatment of DM Sister in law Augustin acts as agricultural economist, declines phone agricultural economist 03/17/23 Family Medicine office visit Sister in Law Augustin reported fasting blood sugars 120s-140s, so glipizide was stopped and Metformin dose was increased from 500 mg twice daily to 850 mg twice daily and advised 3 month follow up with labs and office visit. Demetria reached out to office with reports of blood sugars in the 300s Here to discuss these blood sugars Will increase dose from 850 mg Metformin twice daily to 1000 mg twice daily with repeat kidney function in one month Will follow up in office with labs in 3 months Home glucose readings: Mornings 03/19/23 149 03/20/23 177 03/21/23 175 03/22/23 205 03/23/23 170 03/24/23 190 03/26/23 121 03/27/23 179 03/28/23 206 03/29/23 181 Evening 03/19/23 250 03/20/23 205 03/22/23 310 03/24/23 230 03/26/23 331 03/27/23 320 Component Latest Ref Rng & Units 10/21/2022 03/08/2023 Hemoglobin A1C 4.3 - 5.6 % 7.5 (H) 7.6 (H) Estimated Average Glucose mg/dL 169 171 Here with sister in law Augustin Since our last visit she denies excessive thirst or increased frequency of urination, chest pain or dyspnea , numbness, tingling or pain in extremities, new or unusual visual symptoms, low sugar/hypoglycemic reactions, weight loss/gain, lightheadedness/dizziness, and bowel changes/loose stools. Follow a diabetic diet most of the time. Patients last HgbA1C was Hemoglobin A1C (%) Date Value 03/08/2023 7.6 10/21/2022 7.5 04/27/2022 7.1 10/12/2021 7.4 09/10/2020 6.7 01/24/2020 6.8 ). Last BP 03/29/23 : 150/71 03/17/23 : 146/67 03/09/23 : (!) 125/43 Current Outpatient Medications on File Prior to Visit Medication Sig metFORMIN (GLUCOPHAGE) 850 mg tablet Take 1 tablet by mouth twice daily with meals. diclofenac (VOLTAREN) 1 % topical gel Apply 2 g to affected area four times daily as needed. amLODIPine (NORVASC) 5 mg tablet TAKE 1 TABLET BY MOUTH ONCE DAILY lisinopril-hydroCHLOROthiazide (ZESTORETIC) 20-25 mg per tablet TAKE 1 TABLET BY MOUTH ONCE DAILY blood sugar diagnostic (newMentorUCH ULTRA TEST) test strip Test blood sugar once daily meloxicam (MOBIC) 15 mg tablet TAKE 1 TABLET BY MOUTH ONCE DAILY NEEDED FOR PAIN pravastatin (PRAVACHOL) 20 mg tablet Take 1 tablet by mouth once daily. lansoprazole (PREVACID) 30 mg capsule TAKE 1 CAPSULE BY MOUTH ONCE DAILY pioglitazone (ACTOS) 45 mg tablet TAKE 1 TABLET BY MOUTH ONCE DAILY polyethylene glycol 3350 (MIRALAX) 17 gram/dose powder 1 capful dissolved in 8 oz water once daily as needed for regular stools. Can use daily. (Patient taking differently: 1 capful dissolved in 8 oz water once daily as needed for regular stools. Can use daily. Uses every morning per patient) No current facility-administered medications on file prior to visit. Social History Tobacco Use Smoking status: Never Smokeless tobacco: Never Substance Use Topics Alcohol use: No Drug use: No OBJECTIVE: BP 150/71 Pulse 80 Wt 53.3 kg (117 lb 9.6 oz) BMI 22.97 kg/m Gen: Appears well, in NAD Neck: normal, supple, and thyroid normal size, non-tender, without nodularity Chest: Lungs clear to auscultation. No wheezing, rhonchi, rales. CV: normal, Regular rate and rhythm, no murmurs, clicks, or gallops. EXT: no significant lower extremity edema ASSESSMENT/PLAN: 1. Diabetes mellitus, non-insulin dependent (NIDDM or type II) (HCC) - ICD9: 250.00, ICD10: E11.9 (primary diagnosis) - Demetria reached out to office with reports of blood sugars in the 300s - Here to discuss these blood sugars - Will increase dose from 850 mg Metformin twice daily to 1000 mg twice daily with repeat kidney function in one month - Will follow up in office with labs in 3 months - METFORMIN 1,000 MG TABLET - Giant SwarmTOUCH ULTRA TEST STRIPS - BASIC METABOLIC PNL 2. Essential hypertension - ICD9: 401.9, ICD10: I10 - Fair control 3. CKD stage 3 due to type 2 diabetes mellitus (HCC) - ICD9: 250.40, 585.3, ICD10: E11.22, N18.30 - Check kidney function one month after increased dose Metformin. Keep close eye on kidney function - BASIC METABOLIC PNL Willie Kaur APRN.BAG [place] documented in this encounter [facility] 03-24-2023 Miscellaneous Notes Called caregiver and went over recommendations from Dr. Cramer. Caregiver verbalized understanding Thanks, I would not recommend taking any additional medicine if her evening glucose is above 300. Drink a lot of water to help dilute. If patient absolutely feels she must take something, I would rather she take an additional metformin rather than glipizide. Glipizide could drop her sugar too low overnight. Metformin won't. Called patient caregiver Demetria jony. Demetria states that the patients blood sugar in the morning was Tuesday 205, 170 and 170. However in the evenings Tuesday and her BS is 310. Per caregiver the patient gets very upset and worried when her BS is 310 in the evenings and bc its over 300 the caregiver gives her a glipizide. I advised that per previous recommendations (see 03/18/23 encounter) from Willie Kaur that patient should only be adding in the glipizide if her morning fasting blood sugar is greater than 300. Demetria stating that she knows but the patient gets so worked up and insists it too high and she needs something so the caregiver gives her a glipizide in the evening. Advised that I could not recommend doing that as that is not how it was advised to be given per the provider. Stated they should schedule an appointment so we can further discuss blood sugar management. Caregiver agreeable and wants to come in with patient for in person appointment. She is unable to bring patient in till Thursday 03/29 appointment made for 320pm. Caregiver asking prior to appointment what they should do when evening blood sugars are greater than 300? Please review and advise. Demetria is calling Migdalia Cramer MD today with concern regarding Patient Update (Medication update on how it is working with the change in medication -please call her caregiver Demetria )she would like office to call her back at [phone] as soon as possible. Patient has been identified by name and birthdate. Duration of symptoms: N/A Person calling: caregiver: Demetria Call patient at: at home [phone] (home) [phone] (cell) Was an appointment scheduled: No Closing statement: Results or non-symptom based questions: Thank you for calling [facility], your call will be returned within the next business day. Laura Hay Pss documented in this encounter [facility] 03-22-2023 Miscellaneous Notes Spoke with patient's caregiver, Demetria. Documented in nurse triage encounter from 03/18/23. Patient caregiver called back.She would like a call back at [phone] Thanks Left message to call the office back, may speak with any available triage nurse. Gabbie Melchor RN Demetria is calling on behalf of Yusuf. She has blood sugars readings to give and would like to speak to a nurse with the readings and any changed to meds. Please call her at [phone] documented in this encounter [facility] 03-17-2023 History of Present illness Narrative Transitional Care Management Progress Note The patients TCM visit was performed within the 7 days of discharge. Admit: 03/07/23 Patient's Date of discharge: 03/09/2023 Date of initial coordinator contact after discharge: 03/10/2023 Discharge diagnosis: Polyarthralgia with elevated white count Medication review completed Yes Provider Documentation: In follow-up of hospitalization, Yusuf Medina is a 87 year old female with the chief complaint of polyarthralgia with elevated WBC I have reviewed the patient s last hospital course including diagnostic testing performed during this hospitalization, their discharge medications, and my assessment and plan with the patient and any family members present at today s visit. HPI: ER 03/07/23 with increasing joint pains in her shoulders and hips. Admitted due to elevated WBC. Xrays of knees and wrists showed chondrocalcinosis. Tap of wrists was requested, but patient declined. Briefly on antibiotics, but stopped when arthralgia thought to be inflammatory vs infectious. Today, she reports bilateral hand and wrist pain is well controlled on topical Voltaren. Asking for referral to outpatient PT and OT, doesn't want anyone to come to her house. PAST MEDICAL HISTORY: Reviewed and updated ALLERGIES: Reviewed and updated MEDICATIONS: Reviewed and updated SOCIAL HISTORY: Reviewed and updated FAMILY HISTORY: Reviewed and updated REVIEW OF SYSTEMS: - fever, - chills, - CP, - palpitations, - leg swelling, - orthopnea All other systems reviewed and negative, other than HPI. Elevated WBC Resolved Component Latest Ref Rng & Units 07/22/2022 03/06/2023 03/07/2023 03/08/2023 03/09/2023 WBC 3.70 - 11.00 k/uL 6.89 17.51 (H) 15.83 (H) 12.17 (H) 9.90 RBC 3.90 - 5.20 m/uL 4.03 3.82 (L) 3.74 (L) 3.53 (L) 3.83 (L) Hemoglobin 11.5 - 15.5 g/dL 11.5 11.3 (L) 11.3 (L) 10.3 (L) 11.2 (L) Hematocrit 36.0 - 46.0 % 35.4 (L) 34.3 (L) 33.8 (L) 31.2 (L) 33.7 (L) MCV 80.0 - 100.0 fL 87.8 89.8 90.4 88.4 88.0 MCH 26.0 - 34.0 pg 28.5 29.6 30.2 29.2 29.2 MCHC 30.5 - 36.0 g/dL 32.5 32.9 33.4 33.0 33.2 RDW-CV 11.5 - 15.0 % 14.1 13.6 14.0 14.2 13.7 Platelet Count 150 - 400 k/uL 345 315 272 255 289 MPV 9.0 - 12.7 fL 8.6 (L) 9.5 9.5 9.3 9.3 Neut% % 88.7 Abs Neut (ANC) 1.45 - 7.50 k/uL 15.55 (H) Lymph% % 4.1 Abs Lymph 1.00 - 4.00 k/uL 0.71 (L) White% % 5.7 Abs White <0.87 k/uL 0.99 (H) Eosin% % 0.7 Abs Eosin <0.46 k/uL 0.12 Baso% % 0.2 Abs Baso <0.11 k/uL 0.04 Immature Gran % % 0.6 IMMATURE GRANS (ABS) <0.10 k/uL 0.10 (H) NRBC /100 WBC 0.0 Absolute nRBC <0.01 k/uL <0.01 <0.01 <0.01 <0.01 <0.01 DTYPE Auto DM Demetria indicates that Yusuf recently reported intermittent dizzy spells that have been apparently occurring for months. Has never checked her sugars during these episodes. Glipizide stopped at discharge 03/10/23 due to the reports of dizzy spells and concern for medication related hypoglycemia. Demetria reports fasting blood sugars 120s-140s OK to STOP glipizide. Will increase Metformin. Advised 3 month diabetes follow up Component Latest Ref Rng & Units 10/21/2022 03/08/2023 Hemoglobin A1C 4.3 - 5.6 % 7.5 (H) 7.6 (H) Estimated Average Glucose mg/dL 169 171 Here with sister in law Demetria PHYSICAL EXAMINATION BP 146/67 Pulse 86 Wt 121 lb (54.9kg) General appearance: well appearing, alert, in no acute distress, and well-hydrated, well nourished, motor and sensory appear to be normal Lungs: clear to auscultation no wheezing or rhonchi Heart: RRR without murmur, gallop, or rubs. No ectopy Extremities: Extremities normal. No deformities, edema, or skin discoloration. Good capillary refill. BILATERAL WRISTS AND HANDS: without increased warmth or erythema. With hypertrophy of joints. No TTP. 1. I have reviewed the patient record including associated test results during the last hospitalization Yes 2. I have reviewed Lab test Yes 3. I have reviewed Radiology test Yes 4. I reviewed assessment/plan with the patient/family member Yes ASSESSMENT/PLAN: 1. Pain in both hands - ICD9: 729.5, ICD10: M79.641, M79.642 (primary diagnosis) 2. Pain in both wrists - ICD9: 719.43, ICD10: M25.531, M25.532 - Admitted 03/07/23-03/09/23 for polyarthralgia with elevated WBC. - ER 03/07/23 with increasing joint pains in her shoulders and hips. Admitted due to elevated WBC. Xrays of knees and wrists showed chondrocalcinosis. Tap of wrists was requested, but patient declined. Briefly on antibiotics, but stopped when arthralgia thought to be inflammatory vs infectious. Today, she reports bilateral hand and wrist pain is well controlled on topical Voltaren. Asking for referral to outpatient PT and OT, doesn't want anyone to come to her house. - Pain controlled. Using topical Voltaren with benefit. Doesn't need refill. - Rheumatology scheduled 03/23/23, but Demetria prefers to not drive to [address] so she will try to reschedule this. - CONSULT TO HOUSE OFFICER 3. Leukocytosis, unspecified type - ICD9: 288.60, ICD10: D72.829 - Resolved 4. Type 2 diabetes mellitus with stage 3 chronic kidney disease, without long-term current use of insulin (HCC) - ICD9: 250.40, 585.3, ICD10: E11.22, N18.30 - A1C 7.6 on 03/08/23 - Demetria indicates that Yusuf recently reported intermittent dizzy spells that have been apparently occurring for months. Has never checked her sugars during these episodes. Glipizide stopped at discharge 03/10/23 due to the reports of dizzy spells and concern for medication related hypoglycemia. - Demetria reports fasting blood sugars 120s-140s - OK to STOP glipizide. Will increase Metformin. Advised 3 month diabetes follow up - BASIC METABOLIC PNL - HGB A1C 5. Muscular deconditioning - ICD9: 781.99, ICD10: R29.898 - CONSULT TO PHYSICAL THERAPY Willie Kaur APRN.CNP March 17, 2023 2:20 PM documented in this encounter [facility] 03-10-2023 History of Present illness Narrative Noted Willie Kaur APRN.CNP TCM Home Visit Referral Source of Stratification: [facility] Hospital Admission Status: Discharged Readmission Risk Score: 24 MOHAN Score: 21 Patient meets program referral criteria: No Patient does not qualify for High Risk TCM Home Visit program due to: Discharged home, does not meet program criteria Lien Hankins RN March 10, 2023 8:51 AM TRANSITIONAL CARE MANAGEMENT (TCM) COMMUNITY MONITORING PROGRAM Provider Action/FYI: Appt: 03/11 PCP, 03/23 Rheum, 04/23 PCP Spoke with pt's doug Tapia, validated in chart, his number is listed as pt's Reports: pt has some improvement in pain He is not currently with her Advised to call PCP wit new/worsening symptoms Confirmed PCP appt tomorrow Lien Hankins, LIT SUMMARY: Discharge Network Status: In-Network Discharge Pt discharged from [facility] on 03[facility]09[facility]23. Admitted for: Arthalgia Contact made with patient: Yes Hi my name is Lien Hankins RN and I am calling from the [facility] on behalf of your PCP, Migdalia Cramer MD I understand you were recently in the hospital so I am calling to check in with you to ensure you are feeling well now that you're home. May I ask you a few questions related to your hospital stay and well-being? Yes Contact with patient post discharge, spoke to patient. Patient identified by name and . Do you feel your health is BETTER, WORSE, or the SAME since leaving the hospital? Same ACTION TAKEN: Patient indicated symptoms are better or same, no action required. Continue outreach. MEDICATIONS: Many patients have questions or concerns about their medications once they are home. Do you have any questions about taking your medications or which medication you should be on? No Do you need any medication refills at this time, including any of the medications you might take only when needed? No ACTION TAKEN: No action required For RNs or Pharmacy completing outreach ONLY, was a medication review completed? Yes SOCIAL: We would like to make sure you have what you need so that your basics needs are met - including your personal safety, food, housing and medications. Would you like to speak with a social work receiving team member to help give you support for any of these needs? No It can be normal to feel anxious or down during a time like this. Would you like to talk to a mental health professional about how you have been feeling? No ACTION TAKEN: No action taken DISCHARGE INTRUCTIONS: Your discharge instructions / After Visit Summary (AVS) are important in guiding you through the recovery process. Do you have any questions related to your discharge instructions? No Do you have all the necessary equipment and supplies at home? No ACTION TAKEN: No action required I would like to help you schedule a hospital follow-up virtual or telephone visit with your PCP. This is a great way for you to connect with your provider to ensure you have safely transitioned home. If you are agreeable, I will send your request to a medical appointment scheduler who will contact and assist you with that appointment. This will give you an opportunity to ask any questions or address any concerns you may have with your PCP. Inform the patient that if they have any questions or concerns prior to that appointment, to call their PCP's office right away. ACTION TAKEN: No action required, patient already has an appointment scheduled. Your doctor would like us to remind you of the recommendations regarding the coronavirus (Covid19) outbreak: Avoid public places as much as possible. Avoid close contact (within 6 feet) with others you don t live with, especially if they are sick. Stay home if you are sick. Wash your hands regularly for at least 20 seconds with soap and water. Wear a cloth mask in public places to help reduce community spread. Do not go to your Doctor s office unless instructed to do so. For any non-emergency symptoms, call your Doctor s office to get instructions on how to manage (we might recommend a telephone or virtual visit). For emergency symptoms, proceed to Emergency Department as usual but inform them of cough and fever symptoms MARILEE if present (or call on the way if possible). KENDAL Education Ordered -: No documented in this encounter [facility] 03-07-2023 History of Past i llness Narrative Problem Noted Date Resolved Date Arthralgia 03/07/2023 03/09/2023 Unable to care for self 03/27/2022 03/29/20 Right arm pain 03/27/2022 03/29/2022 Right leg pain 03/27/2022 03/29/2022 Leukocytosis 03/27/2022 03/29/2022 Sepsis 03/24/2022 04/03/2022 Acute cystitis without hematuria 03/24/2022 03/26/2022 Electrolyte imbalance 03/24/2022 10/23/2022 Hypomagnesemia 03/24/2022 03/26/2022 Hypokalemia 03/24/2022 03/26/2022 Elevated serum creatinine 03/24/20222021 Plantar fasciitis 05/25/2017 12/07/2017 CKD (chronic kidney disease) 05/11/2016 Type 2 diabetes mellitus without complication 03/07/2017 Sacroiliitis 10/28/2015 12/07/2017 Constipation 08/28/2015 05/11/2016 Unable to ambulate 08/27/2015 05/11/2016 Intractable low back pain 08/25/20152016 Overview: PLAN: -Tylenol 650 mg po scheduled q8h -Neurontin 200 mg po tid, will uptitrate per Pain's recs -Nucynta 50 mg po q4h PRN severe pain. -Medrol dosepak initiated on 08/27/2015 -scheduled Miralax and Colace to prevent narcotic-induced constipation -AMRK Huizar in Neurosurgery spoke with Dr. Martines as to whether patient requires expedited morphine pump implantation while inpatient, but Dr. Martines prefers to allow Anesthesia Pain service to treat her pain while inpatient with plan for pump implantation as outpatient. Tentatively planning for pump implantation on October 01, 2015. Neurosurgery would like patient to follow-up with Anesthesia Chronic Pain in outpatient setting. Appointment ordered (scheduled for 09/05/15 at 08:40am C25). -Greatly appreciate Serenity's recs from Chronic Pain service -Patient's niece and MARK Sanchez called Dr. Martines on 08/26/2015 to get an update on patient, expressed concern that patient is having difficulty ambulating and plan is for her to return home. Physical therapy consulted, felt patient safe to discharge home but recommended home PT. -I spoke with patient and sisters at bedside on 08/27/2015. Patient, sisters, and nursing expressed concern that patient was not safe to return home (even with home physical therapy) given severe pain and inability to ambulate on own. I share their concern. -I spoke with Guillaume Fernando in Social Work and he is going to meet with patient and provide her options for SNF placement. Acute renal failure (ARF) 08/24/20152014 Overview: Cr 1.48 in ED on admission, normalized after IV fluids, remains stable. Lumbosacral radiculitis 02/21/2015 12/07/19 18 Rotator cuff (capsule) sprain 08/06/2014 Cervicalgia 07/17/2013 05/11/2016 Pain in joint, shoulder region 07/17/2013 1 11/23/2013 Osteoarthritis of ankle or foot, right 1 12/07/2017 Diabetes mellitus type 2, controlled, without co mplications 05/24/2011 05/11/2016 Overview: PLAN: -Home glyburide, metformin, pioglitazone held -Insulin sliding scale 1 as needed Gait disturbance 05/20/2011 05/11/2016 Hyperlipidemia 02/19/2011 02/12/2014 Osteoarthrosis, unspecified whether generalized or localized, pelvic region and thigh 11/16/2010 09/15/2011 Degenerative arthritis of hip 10/31/2010 Overview: Severe left > right Pain in joint, pelvic region and thigh 0 09/15/2011 Thoracic or lumbosacral neuritis or radiculitis, unspecified 10/31/2010 09/15/2011 Lumbosacral spondylosis without myelopathy 10/3109/15/2011 Diabetes Mellitus Type II, Uncontrolled; 199912/01/2016 Vertigo of central origin 01/08/20102010 Peripheral vertigo, unspecified 01/08/2010 09/15/2011 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 Renal dysfunction 03/07/2017 documented as of this encounter (statuses as of 03/10/2023) [facility] History of Past illness Narrative* Problem Noted Date Resolved Date Arthralgia 03/07/2023 03/09/2023 Unable to care for self 03/27/2022 03/29/20 Right arm pain 03/27/2022 03/29/2022 Right leg pain 03/27/2022 03/29/2022 Leukocytosis 03/27/2022 03/29/2022 Sepsis 03/24/2022 04/03/2022 Acute cystitis without hematuria 03/24/2022 03/26/2022 Electrolyte imbalance 03/24/2022 10/23/2022 Hypomagnesemia 03/24/2022 03/26/2022 Hypokalemia 03/24/2022 03/26/2022 Elevated serum creatinine 03/24/20222021 Plantar fasciitis 05/25/2017 12/07/2017 CKD (chronic kidney disease) 05/11/2016 Type 2 diabetes mellitus without complication 03/07/2017 Sacroiliitis 10/28/2015 12/07/2017 Constipation 08/28/2015 05/11/2016 Unable to ambulate 08/27/2015 05/11/2016 Intractable low back pain 08/25/20152016 Overview: PLAN: -Tylenol 650 mg po scheduled q8h -Neurontin 200 mg po tid, will uptitrate per Pain's recs -Nucynta 50 mg po q4h PRN severe pain. -Medrol dosepak initiated on 08/27/2015 -scheduled Miralax and Colace to prevent narcotic-induced constipation -MARK Huizar in Neurosurgery spoke with Dr. Martines as to whether patient requires expedited morphine pump implantation while inpatient, but Dr. Martines prefers to allow Anesthesia Pain service to treat her pain while inpatient with plan for pump implantation as outpatient. Tentatively planning for pump implantation on October 01, 2015. Neurosurgery would like patient to follow-up with Anesthesia Chronic Pain in outpatient setting. Appointment ordered (scheduled for 09/05/15 at 08:40am C25). -Greatly appreciate Serenity's recs from Chronic Pain service -Patient's niece and POA Laura called Dr. Martines on 08/26/2015 to get an update on patient, expressed concern that patient is having difficulty ambulating and plan is for her to return home. Physical therapy consulted, felt patient safe to discharge home but recommended home PT. -I spoke with patient and sisters at bedside on 08/27/2015. Patient, sisters, and nursing expressed concern that patient was not safe to return home (even with home physical therapy) given severe pain and inability to ambulate on own. I share their concern. -I spoke with Guillaume Fernando in Social Work and he is going to meet with patient and provide her options for SNF placement. Acute renal failure (ARF) 08/24/20152014 Overview: Cr 1.48 in ED on admission, normalized after IV fluids, remains stable. Lumbosacral radiculitis 02/21/2015 12/07/19 Rotator cuff (capsule) sprain 08/06/2014 Cervicalgia 07/17/2013 05/11/2016 Pain in joint, shoulder region 07/17/2013 1 11/23/2013 Osteoarthritis of ankle or foot, right 1 12/07/2017 Diabetes mellitus type 2, controlled, without co mplications 05/24/2011 05/11/2016 Overview: PLAN: -Home glyburide, metformin, pioglitazone held -Insulin sliding scale 1 as needed Gait disturbance 05/20/2011 05/11/2016 Hyperlipidemia 02/19/2011 02/12/2014 Osteoarthrosis, unspecified whether generalized or localized, pelvic region and thigh 11/16/2010 09/15/2011 Degenerative arthritis of hip 10/31/2010 Overview: Severe left > right Pain in joint, pelvic region and thigh 0 09/15/2011 Thoracic or lumbosacral neuritis or radiculitis, unspecified 10/31/2010 09/15/2011 Lumbosacral spondylosis without myelopathy 10/3109/15/2011 Diabetes Mellitus Type II, Uncontrolled; 199912/01/2016 Vertigo of central origin 01/08/20102010 Peripheral vertigo, unspecified 01/08/2010 09/15/2011 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 Renal dysfunction 03/07/2017 documented as of this encounter (statuses as of 03/19/2023) [facility] History of Past illness Narrative* Problem Noted Date Resolved Date Arthralgia 03/07/2023 03/09/2023 Unable to care for self 03/27/2022 03/29/20 Right arm pain 03/27/2022 03/29/2022 Right leg pain 03/27/2022 03/29/2022 Leukocytosis 03/27/2022 03/29/2022 Sepsis 03/24/2022 04/03/2022 Acute cystitis without hematuria 03/24/2022 03/26/2022 Electrolyte imbalance 03/24/2022 10/23/2022 Hypomagnesemia 03/24/2022 03/26/2022 Hypokalemia 03/24/2022 03/26/2022 Elevated serum creatinine 03/24/20222021 Plantar fasciitis 05/25/2017 12/07/2017 CKD (chronic kidney disease) 05/11/2016 Type 2 diabetes mellitus without complication 03/07/2017 Sacroiliitis 10/28/2015 12/07/2017 Constipation 08/28/2015 05/11/2016 Unable to ambulate 08/27/2015 05/11/2016 Intractable low back pain 08/25/20152016 Overview: PLAN: -Tylenol 650 mg po scheduled q8h -Neurontin 200 mg po tid, will uptitrate per Pain's recs -Nucynta 50 mg po q4h PRN severe pain. -Medrol dosepak initiated on 08/27/2015 -scheduled Miralax and Colace to prevent narcotic-induced constipation -MARK Huizar in Neurosurgery spoke with Dr. Martines as to whether patient requires expedited morphine pump implantation while inpatient, but Dr. Martines prefers to allow Anesthesia Pain service to treat her pain while inpatient with plan for pump implantation as outpatient. Tentatively planning for pump implantation on October 01, 2015. Neurosurgery would like patient to follow-up with Anesthesia Chronic Pain in outpatient setting. Appointment ordered (scheduled for 09/05/15 at 08:40am C25). -Greatly appreciate Serenity's recs from Chronic Pain service -Patient's niece and MALLORYCece Laura called Dr. Martines on 08/26/2015 to get an update on patient, expressed concern that patient is having difficulty ambulating and plan is for her to return home. Physical therapy consulted, felt patient safe to discharge home but recommended home PT. -I spoke with patient and sisters at bedside on 08/27/2015. Patient, sisters, and nursing expressed concern that patient was not safe to return home (even with home physical therapy) given severe pain and inability to ambulate on own. I share their concern. -I spoke with Guillaume Fernando in Social Work and he is going to meet with patient and provide her options for SNF placement. Acute renal failure (ARF) 08/24/20152014 Overview: Cr 1.48 in ED on admission, normalized after IV fluids, remains stable. Lumbosacral radiculitis 02/21/2015 12/07/19 18 Rotator cuff (capsule) sprain 08/06/2014 Cervicalgia 07/17/2013 05/11/2016 Pain in joint, shoulder region 07/17/2013 1 11/23/2013 Osteoarthritis of ankle or foot, right 12/07/2017 Diabetes mellitus type 2, controlled, without co mplications 05/24/2011 05/11/2016 Overview: PLAN: -Home glyburide, metformin, pioglitazone held -Insulin sliding scale 1 as needed Gait disturbance 05/20/2011 05/11/2016 Hyperlipidemia 02/19/2011 02/12/2014 Osteoarthrosis, unspecified whether generalized or localized, pelvic region and thigh 11/16/2010 09/15/2011 Degenerative arthritis of hip 10/31/2010 Overview: Severe left > right Pain in joint, pelvic region and thigh 0 09/15/2011 Thoracic or lumbosacral neuritis or radiculitis, unspecified 10/31/2010 09/15/2011 Lumbosacral spondylosis without myelopathy 10/3109/15/2011 Diabetes Mellitus Type II, Uncontrolled; 199912/01/2016 Vertigo of central origin 01/08/20102010 Peripheral vertigo, unspecified 01/08/2010 09/15/2011 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 Renal dysfunction 03/07/2017 documented as of this encounter (statuses as of 03/23/2023) [facility]04-[facility] History of Past illness Narrative* Problem Noted Date Resolved Date Arthralgia 03/07/2023 03/09/2023 Unable to care for self 03/27/2022 03/29/20 Right arm pain 03/27/2022 03/29/2022 Right leg pain 03/27/2022 03/29/2022 Leukocytosis 03/27/2022 03/29/2022 Sepsis 03/24/2022 04/03/2022 Acute cystitis without hematuria 03/24/2022 03/26/2022 Electrolyte imbalance 03/24/2022 10/23/2022 Hypomagnesemia 03/24/2022 03/26/2022 Hypokalemia 03/24/2022 03/26/2022 Elevated serum creatinine 03/24/20222021 Plantar fasciitis 05/25/2017 12/07/2017 CKD (chronic kidney disease) 05/11/2016 Type 2 diabetes mellitus without complication 03/07/2017 Sacroiliitis 10/28/2015 12/07/2017 Constipation 08/28/2015 05/11/2016 Unable to ambulate 08/27/2015 05/11/2016 Intractable low back pain 08/25/20152016 Overview: PLAN: -Tylenol 650 mg po scheduled q8h -Neurontin 200 mg po tid, will uptitrate per Pain's recs -Nucynta 50 mg po q4h PRN severe pain. -Medrol dosepak initiated on 08/27/2015 -scheduled Miralax and Colace to prevent narcotic-induced constipation -MARK Huizar in Neurosurgery spoke with Dr. Martines as to whether patient requires expedited morphine pump implantation while inpatient, but Dr. Martines prefers to allow Anesthesia Pain service to treat her pain while inpatient with plan for pump implantation as outpatient. Tentatively planning for pump implantation on October 01, 2015. Neurosurgery would like patient to follow-up with Anesthesia Chronic Pain in outpatient setting. Appointment ordered (scheduled for 09/05/15 at 08:40am C25). -Greatly appreciate Serenity's recs from Chronic Pain service -Patient's niece and POA Laura called Dr. Martines on 08/26/2015 to get an update on patient, expressed concern that patient is having difficulty ambulating and plan is for her to return home. Physical therapy consulted, felt patient safe to discharge home but recommended home PT. -I spoke with patient and sisters at bedside on 08/27/2015. Patient, sisters, and nursing expressed concern that patient was not safe to return home (even with home physical therapy) given severe pain and inability to ambulate on own. I share their concern. -I spoke with Guillaume Abdullahi in Social Work and he is going to meet with patient and provide her options for SNF placement. Acute renal failure (ARF) 08/24/20152014 Overview: Cr 1.48 in ED on admission, normalized after IV fluids, remains stable. Lumbosacral radiculitis 02/21/2015 12/07/19 Rotator cuff (capsule) sprain 08/06/2014 Cervicalgia 07/17/2013 05/11/2016 Pain in joint, shoulder region 07/17/2013 1 11/23/2013 Osteoarthritis of ankle or foot, right 1 12/07/2017 Diabetes mellitus type 2, controlled, without co mplications 05/24/2011 05/11/2016 Overview: PLAN: -Home glyburide, metformin, pioglitazone held -Insulin sliding scale 1 as needed Gait disturbance 05/20/2011 05/11/2016 Hyperlipidemia 02/19/2011 02/12/2014 Osteoarthrosis, unspecified whether generalized or localized, pelvic region and thigh 11/16/2010 09/15/2011 Degenerative arthritis of hip 10/31/2010 Overview: Severe left > right Pain in joint, pelvic region and thigh 0 09/15/2011 Thoracic or lumbosacral neuritis or radiculitis, unspecified 10/31/2010 09/15/2011 Lumbosacral spondylosis without myelopathy 10/3109/15/2011 Diabetes Mellitus Type II, Uncontrolled; 199912/01/2016 Vertigo of central origin 01/08/20102010 Peripheral vertigo, unspecified 01/08/2010 09/15/2011 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 Renal dysfunction 03/07/2017 documented as of this encounter (statuses as of 03/24/2023) [facility] History of Past illness Narrative* Problem Noted Date Resolved Date Arthralgia 03/07/2023 03/09/2023 Unable to care for self 03/27/2022 03/29/20 Right arm pain 03/27/2022 03/29/2022 Right leg pain 03/27/2022 03/29/2022 Leukocytosis 03/27/2022 03/29/2022 Sepsis 03/24/2022 04/03/2022 Acute cystitis without hematuria 03/24/2022 03/26/2022 Electrolyte imbalance 03/24/2022 10/23/2022 Hypomagnesemia 03/24/2022 03/26/2022 Hypokalemia 03/24/2022 03/26/2022 Elevated serum creatinine 03/24/20222021 Plantar fasciitis 05/25/2017 12/07/2017 CKD (chronic kidney disease) 05/11/2016 Type 2 diabetes mellitus without complication 03/07/2017 Sacroiliitis 10/28/2015 12/07/2017 Constipation 08/28/2015 05/11/2016 Unable to ambulate 08/27/2015 05/11/2016 Intractable low back pain 08/25/20152016 Overview: PLAN: -Tylenol 650 mg po scheduled q8h -Neurontin 200 mg po tid, will uptitrate per Pain's recs -Nucynta 50 mg po q4h PRN severe pain. -Medrol dosepak initiated on 08/27/2015 -scheduled Miralax and Colace to prevent narcotic-induced constipation -MARK Huizar in Neurosurgery spoke with Dr. Martines as to whether patient requires expedited morphine pump implantation while inpatient, but Dr. Martines prefers to allow Anesthesia Pain service to treat her pain while inpatient with plan for pump implantation as outpatient. Tentatively planning for pump implantation on October 01, 2015. Neurosurgery would like patient to follow-up with Anesthesia Chronic Pain in outpatient setting. Appointment ordered (scheduled for 09/05/15 at 08:40am C25). -Greatly appreciate Serenity's recs from Chronic Pain service -Patient's niece and MARK Sanchez called Dr. Martines on 08/26/2015 to get an update on patient, expressed concern that patient is having difficulty ambulating and plan is for her to return home. Physical therapy consulted, felt patient safe to discharge home but recommended home PT. -I spoke with patient and sisters at bedside on 08/27/2015. Patient, sisters, and nursing expressed concern that patient was not safe to return home (even with home physical therapy) given severe pain and inability to ambulate on own. I share their concern. -I spoke with Guillaume Fernando in Social Work and he is going to meet with patient and provide her options for SNF placement. Acute renal failure (ARF) 08/24/20152014 Overview: Cr 1.48 in ED on admission, normalized after IV fluids, remains stable. Lumbosacral radiculitis 02/21/2015 12/07/19 18 Rotator cuff (capsule) sprain 08/06/2014 Cervicalgia 07/17/2013 05/11/2016 Pain in joint, shoulder region 07/17/2013 1 11/23/2013 Osteoarthritis of ankle or foot, right 1 12/07/2017 Diabetes mellitus type 2, controlled, without co mplications 05/24/2011 05/11/2016 Overview: PLAN: -Home glyburide, metformin, pioglitazone held -Insulin sliding scale 1 as needed Gait disturbance 05/20/2011 05/11/2016 Hyperlipidemia 02/19/2011 02/12/2014 Osteoarthrosis, unspecified whether generalized or localized, pelvic region and thigh 11/16/2010 09/15/2011 Degenerative arthritis of hip 10/31/2010 Overview: Severe left > right Pain in joint, pelvic region and thigh 0 09/15/2011 Thoracic or lumbosacral neuritis or radiculitis, unspecified 10/31/2010 09/15/2011 Lumbosacral spondylosis without myelopathy 10/3109/15/2011 Diabetes Mellitus Type II, Uncontrolled; 199912/01/2016 Vertigo of central origin 01/08/20102010 Peripheral vertigo, unspecified 01/08/2010 09/15/2011 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 Renal dysfunction 03/07/2017 documented as of this encounter (statuses as of 03/30/2023) [facility] History of Past illness Narrative* Problem Noted Date Resolved Date Arthralgia 03/07/2023 03/09/2023 Unable to care for self 03/27/2022 03/29/20 Right arm pain 03/27/2022 03/29/2022 Right leg pain 03/27/2022 03/29/2022 Leukocytosis 03/27/2022 03/29/2022 Sepsis 03/24/2022 04/03/2022 Acute cystitis without hematuria 03/24/2022 03/26/2022 Electrolyte imbalance 03/24/2022 10/23/2022 Hypomagnesemia 03/24/2022 03/26/2022 Hypokalemia 03/24/2022 03/26/2022 Elevated serum creatinine 03/24/20222021 Sacroiliitis 01/25/2018 04/13/2023 Plantar fasciitis 05/25/2017 12/07/2017 CKD (chronic kidney disease) 05/11/2016 Type 2 diabetes mellitus without complication 03/07/2017 Sacroiliitis 10/28/2015 12/07/2017 Constipation 08/28/2015 05/11/2016 Unable to ambulate 08/27/2015 05/11/2016 Intractable low back pain 08/25/20152016 Overview: PLAN: -Tylenol 650 mg po scheduled q8h -Neurontin 200 mg po tid, will uptitrate per Pain's recs -Nucynta 50 mg po q4h PRN severe pain. -Medrol dosepak initiated on 08/27/2015 -scheduled Miralax and Colace to prevent narcotic-induced constipation -MARK Huizar in Neurosurgery spoke with Dr. Martines as to whether patient requires expedited morphine pump implantation while inpatient, but Dr. Martines prefers to allow Anesthesia Pain service to treat her pain while inpatient with plan for pump implantation as outpatient. Tentatively planning for pump implantation on October 01, 2015. Neurosurgery would like patient to follow-up with Anesthesia Chronic Pain in outpatient setting. Appointment ordered (scheduled for 09/05/15 at 08:40am C25). -Greatly appreciate Serenity's recs from Chronic Pain service -Patient's niece and POA Laura called Dr. Martines on 08/26/2015 to get an update on patient, expressed concern that patient is having difficulty ambulating and plan is for her to return home. Physical therapy consulted, felt patient safe to discharge home but recommended home PT. -I spoke with patient and sisters at bedside on 08/27/2015. Patient, sisters, and nursing expressed concern that patient was not safe to return home (even with home physical therapy) given severe pain and inability to ambulate on own. I share their concern. -I spoke with Guillaume Abdullahi in Social Work and he is going to meet with patient and provide her options for SNF placement. Acute renal failure (ARF) 08/24/20152014 Overview: Cr 1.48 in ED on admission, normalized after IV fluids, remains stable. Lumbosacral radiculitis 02/21/2015 12/07/19 Rotator cuff (capsule) sprain 08/06/2014 Cervicalgia 07/17/2013 05/11/2016 Pain in joint, shoulder region 07/17/2013 1 11/23/2013 Osteoarthritis of ankle or foot, right 1 12/07/2017 Diabetes mellitus type 2, controlled, without co mplications 05/24/2011 05/11/2016 Overview: PLAN: -Home glyburide, metformin, pioglitazone held -Insulin sliding scale 1 as needed Gait disturbance 05/20/2011 05/11/2016 Hyperlipidemia 02/19/2011 02/12/2014 Osteoarthrosis, unspecified whether generalized or localized, pelvic region and thigh 11/16/2010 09/15/2011 Degenerative arthritis of hip 10/31/2010 Overview: Severe left > right Pain in joint, pelvic region and thigh 0 09/15/2011 Thoracic or lumbosacral neuritis or radiculitis, unspecified 10/31/2010 09/15/2011 Lumbosacral spondylosis without myelopathy 10/3109/15/2011 Diabetes Mellitus Type II, Uncontrolled; 199912/01/2016 Vertigo of central origin 01/08/20102010 Peripheral vertigo, unspecified 01/08/2010 09/15/2011 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 Renal dysfunction 03/07/2017 documented as of this encounter (statuses as of 04/14/2023) [facility] History of Past illness Narrative* Problem Noted Date Resolved Date Arthralgia 03/07/2023 03/09/2023 Unable to care for self 03/27/2022 03/29/20 Right arm pain 03/27/2022 03/29/2022 Right leg pain 03/27/2022 03/29/2022 Leukocytosis 03/27/2022 03/29/2022 Sepsis 03/24/2022 04/03/2022 Acute cystitis without hematuria 03/24/2022 03/26/2022 Electrolyte imbalance 03/24/2022 10/23/2022 Hypomagnesemia 03/24/2022 03/26/2022 Hypokalemia 03/24/2022 03/26/2022 Elevated serum creatinine 03/24/20222021 Sacroiliitis 01/25/2018 04/13/2023 Plantar fasciitis 05/25/2017 12/07/2017 CKD (chronic kidney disease) 05/11/2016 Type 2 diabetes mellitus without complication 03/07/2017 Sacroiliitis 10/28/2015 12/07/2017 Constipation 08/28/2015 05/11/2016 Unable to ambulate 08/27/2015 05/11/2016 Intractable low back pain 08/25/20152016 Overview: PLAN: -Tylenol 650 mg po scheduled q8h -Neurontin 200 mg po tid, will uptitrate per Pain's recs -Nucynta 50 mg po q4h PRN severe pain. -Medrol dosepak initiated on 08/27/2015 -scheduled Miralax and Colace to prevent narcotic-induced constipation -MARK Huizar in Neurosurgery spoke with Dr. Martines as to whether patient requires expedited morphine pump implantation while inpatient, but Dr. Martines prefers to allow Anesthesia Pain service to treat her pain while inpatient with plan for pump implantation as outpatient. Tentatively planning for pump implantation on October 01, 2015. Neurosurgery would like patient to follow-up with Anesthesia Chronic Pain in outpatient setting. Appointment ordered (scheduled for 09/05/15 at 08:40am C25). -Greatly appreciate Serenity's recs from Chronic Pain service -Patient's niece and MARK Laura called Dr. Martines on 08/26/2015 to get an update on patient, expressed concern that patient is having difficulty ambulating and plan is for her to return home. Physical therapy consulted, felt patient safe to discharge home but recommended home PT. -I spoke with patient and sisters at bedside on 08/27/2015. Patient, sisters, and nursing expressed concern that patient was not safe to return home (even with home physical therapy) given severe pain and inability to ambulate on own. I share their concern. -I spoke with Guillaume Fernando in Social Work and he is going to meet with patient and provide her options for SNF placement. Acute renal failure (ARF) 08/24/20152014 Overview: Cr 1.48 in ED on admission, normalized after IV fluids, remains stable. Lumbosacral radiculitis 02/21/2015 12/07/19 18 Rotator cuff (capsule) sprain 08/06/2014 Cervicalgia 07/17/2013 05/11/2016 Pain in joint, shoulder region 07/17/2013 1 11/23/2013 Osteoarthritis of ankle or foot, right 1 12/07/2017 Diabetes mellitus type 2, controlled, without co mplications 05/24/2011 05/11/2016 Overview: PLAN: -Home glyburide, metformin, pioglitazone held -Insulin sliding scale 1 as needed Gait disturbance 05/20/2011 05/11/2016 Hyperlipidemia 02/19/2011 02/12/2014 Osteoarthrosis, unspecified whether generalized or localized, pelvic region and thigh 11/16/2010 09/15/2011 Degenerative arthritis of hip 10/31/2010 Overview: Severe left > right Pain in joint, pelvic region and thigh 0 09/15/2011 Thoracic or lumbosacral neuritis or radiculitis, unspecified 10/31/2010 09/15/2011 Lumbosacral spondylosis without myelopathy 10/3109/15/2011 Diabetes Mellitus Type II, Uncontrolled; 199912/01/2016 Vertigo of central origin 01/08/20102010 Peripheral vertigo, unspecified 01/08/2010 09/15/2011 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 Renal dysfunction 03/07/2017 documented as of this encounter (statuses as of 04/20/2023) [facility] History of Past illness Narrative* Problem Noted Date Resolved Date Arthralgia 03/07/2023 03/09/2023 Unable to care for self 03/27/2022 03/29/20 22 Right arm pain 03/27/2022 03/29/2022 Right leg pain 03/27/2022 03/29/2022 Leukocytosis 03/27/2022 03/29/2022 Sepsis 03/24/2022 04/03/2022 Acute cystitis without hematuria 03/24/2022 03/26/2022 Electrolyte imbalance 03/24/2022 10/23/2022 Hypomagnesemia 03/24/2022 03/26/2022 Hypokalemia 03/24/2022 03/26/2022 Elevated serum creatinine 03/24/20222021 Sacroiliitis 01/25/2018 04/13/2023 Plantar fasciitis 05/25/2017 12/07/2017 CKD (chronic kidney disease) 05/11/2016 Type 2 diabetes mellitus without complication 03/07/2017 Sacroiliitis 10/28/2015 12/07/2017 Constipation 08/28/2015 05/11/2016 Unable to ambulate 08/27/2015 05/11/2016 Intractable low back pain 08/25/20152016 Overview: PLAN: -Tylenol 650 mg po scheduled q8h -Neurontin 200 mg po tid, will uptitrate per Pain's recs -Nucynta 50 mg po q4h PRN severe pain. -Medrol dosepak initiated on 08/27/2015 -scheduled Miralax and Colace to prevent narcotic-induced constipation -MARK Huizar in Neurosurgery spoke with Dr. Martines as to whether patient requires expedited morphine pump implantation while inpatient, but Dr. Martines prefers to allow Anesthesia Pain service to treat her pain while inpatient with plan for pump implantation as outpatient. Tentatively planning for pump implantation on October 01, 2015. Neurosurgery would like patient to follow-up with Anesthesia Chronic Pain in outpatient setting. Appointment ordered (scheduled for 09/05/15 at 08:40am C25). -Greatly appreciate Serenity's recs from Chronic Pain service -Patient's niece and POA Laura called Dr. Martines on 08/26/2015 to get an update on patient, expressed concern that patient is having difficulty ambulating and plan is for her to return home. Physical therapy consulted, felt patient safe to discharge home but recommended home PT. -I spoke with patient and sisters at bedside on 08/27/2015. Patient, sisters, and nursing expressed concern that patient was not safe to return home (even with home physical therapy) given severe pain and inability to ambulate on own. I share their concern. -I spoke with Guillaume Abdullahi in Social Work and he is going to meet with patient and provide her options for SNF placement. Acute renal failure (ARF) 08/24/20152014 Overview: Cr 1.48 in ED on admission, normalized after IV fluids, remains stable. Lumbosacral radiculitis 02/21/2015 12/07/19 18 Rotator cuff (capsule) sprain 08/06/2014 Cervicalgia 07/17/2013 05/11/2016 Pain in joint, shoulder region 07/17/2013 1 11/23/2013 Osteoarthritis of ankle or foot, right 1 12/07/2017 Diabetes mellitus type 2, controlled, without co mplications 05/24/2011 05/11/2016 Overview: PLAN: -Home glyburide, metformin, pioglitazone held -Insulin sliding scale 1 as needed Gait disturbance 05/20/2011 05/11/2016 Hyperlipidemia 02/19/2011 02/12/2014 Osteoarthrosis, unspecified whether generalized or localized, pelvic region and thigh 11/16/2010 09/15/2011 Degenerative arthritis of hip 10/31/2010 Overview: Severe left > right Pain in joint, pelvic region and thigh 0 09/15/2011 Thoracic or lumbosacral neuritis or radiculitis, unspecified 10/31/2010 09/15/2011 Lumbosacral spondylosis without myelopathy 10/3109/15/2011 Diabetes Mellitus Type II, Uncontrolled; 199912/01/2016 Vertigo of central origin 01/08/20102010 Peripheral vertigo, unspecified 01/08/2010 09/15/2011 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 Renal dysfunction 03/07/2017 documented as of this encounter (statuses as of 04/20/2023) [facility] History of Past illness Narrative* Problem Noted Date Resolved Date Arthralgia 03/07/2023 03/09/2023 Unable to care for self 03/27/2022 03/29/20 Right arm pain 03/27/2022 03/29/2022 Right leg pain 03/27/2022 03/29/2022 Leukocytosis 03/27/2022 03/29/2022 Sepsis 03/24/2022 04/03/2022 Acute cystitis without hematuria 03/24/2022 03/26/2022 Electrolyte imbalance 03/24/2022 10/23/2022 Hypomagnesemia 03/24/2022 03/26/2022 Hypokalemia 03/24/2022 03/26/2022 Elevated serum creatinine 03/24/20222021 Sacroiliitis 01/25/2018 04/13/2023 Plantar fasciitis 05/25/2017 12/07/2017 CKD (chronic kidney disease) 05/11/2016 Type 2 diabetes mellitus without complication 03/07/2017 Sacroiliitis 10/28/2015 12/07/2017 Constipation 08/28/2015 05/11/2016 Unable to ambulate 08/27/2015 05/11/2016 Intractable low back pain 08/25/20152016 Overview: PLAN: -Tylenol 650 mg po scheduled q8h -Neurontin 200 mg po tid, will uptitrate per Pain's recs -Nucynta 50 mg po q4h PRN severe pain. -Medrol dosepak initiated on 08/27/2015 -scheduled Miralax and Colace to prevent narcotic-induced constipation -MARK Huizar in Neurosurgery spoke with Dr. Martines as to whether patient requires expedited morphine pump implantation while inpatient, but Dr. Martines prefers to allow Anesthesia Pain service to treat her pain while inpatient with plan for pump implantation as outpatient. Tentatively planning for pump implantation on October 01, 2015. Neurosurgery would like patient to follow-up with Anesthesia Chronic Pain in outpatient setting. Appointment ordered (scheduled for 09/05/15 at 08:40am C25). -Greatly appreciate Serenity's recs from Chronic Pain service -Patient's niece and MARK Sanchez called Dr. Martines on 08/26/2015 to get an update on patient, expressed concern that patient is having difficulty ambulating and plan is for her to return home. Physical therapy consulted, felt patient safe to discharge home but recommended home PT. -I spoke with patient and sisters at bedside on 08/27/2015. Patient, sisters, and nursing expressed concern that patient was not safe to return home (even with home physical therapy) given severe pain and inability to ambulate on own. I share their concern. -I spoke with Guillaume Fernando in Social Work and he is going to meet with patient and provide her options for SNF placement. Acute renal failure (ARF) 08/24/20152014 Overview: Cr 1.48 in ED on admission, normalized after IV fluids, remains stable. Lumbosacral radiculitis 02/21/2015 12/07/19 18 Rotator cuff (capsule) sprain 08/06/2014 Cervicalgia 07/17/2013 05/11/2016 Pain in joint, shoulder region 07/17/2013 1 11/23/2013 Osteoarthritis of ankle or foot, right 1 12/07/2017 Diabetes mellitus type 2, controlled, without co mplications 05/24/2011 05/11/2016 Overview: PLAN: -Home glyburide, metformin, pioglitazone held -Insulin sliding scale 1 as needed Gait disturbance 05/20/2011 05/11/2016 Hyperlipidemia 02/19/2011 02/12/2014 Osteoarthrosis, unspecified whether generalized or localized, pelvic region and thigh 11/16/2010 09/15/2011 Degenerative arthritis of hip 10/31/2010 Overview: Severe left > right Pain in joint, pelvic region and thigh 0 09/15/2011 Thoracic or lumbosacral neuritis or radiculitis, unspecified 10/31/2010 09/15/2011 Lumbosacral spondylosis without myelopathy 10/3109/15/2011 Diabetes Mellitus Type II, Uncontrolled; 199912/01/2016 Vertigo of central origin 01/08/20102010 Peripheral vertigo, unspecified 01/08/2010 09/15/2011 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 Renal dysfunction 03/07/2017 documented as of this encounter (statuses as of 04/28/2023) [facility] History of Past illness Narrative* Problem Noted Date Resolved Date Arthralgia 03/07/2023 03/09/2023 Unable to care for self 03/27/2022 03/29/20 22 Right arm pain 03/27/2022 03/29/2022 Right leg pain 03/27/2022 03/29/2022 Leukocytosis 03/27/2022 03/29/2022 Sepsis 03/24/2022 04/03/2022 Acute cystitis without hematuria 03/24/2022 03/26/2022 Electrolyte imbalance 03/24/2022 10/23/2022 Hypomagnesemia 03/24/2022 03/26/2022 Hypokalemia 03/24/2022 03/26/2022 Elevated serum creatinine 03/24/20222021 Sacroiliitis 01/25/2018 04/13/2023 Plantar fasciitis 05/25/2017 12/07/2017 CKD (chronic kidney disease) 05/11/2016 Type 2 diabetes mellitus without complication 03/07/2017 Sacroiliitis 10/28/2015 12/07/2017 Constipation 08/28/2015 05/11/2016 Unable to ambulate 08/27/2015 05/11/2016 Intractable low back pain 08/25/20152016 Overview: PLAN: -Tylenol 650 mg po scheduled q8h -Neurontin 200 mg po tid, will uptitrate per Pain's recs -Nucynta 50 mg po q4h PRN severe pain. -Medrol dosepak initiated on 08/27/2015 -scheduled Miralax and Colace to prevent narcotic-induced constipation -MARK Huizar in Neurosurgery spoke with Dr. Martines as to whether patient requires expedited morphine pump implantation while inpatient, but Dr. Martines prefers to allow Anesthesia Pain service to treat her pain while inpatient with plan for pump implantation as outpatient. Tentatively planning for pump implantation on October 01, 2015. Neurosurgery would like patient to follow-up with Anesthesia Chronic Pain in outpatient setting. Appointment ordered (scheduled for 09/05/15 at 08:40am C25). -Greatly appreciate Serenity's recs from Chronic Pain service -Patient's niece and POA Laura called Dr. Martines on 08/26/2015 to get an update on patient, expressed concern that patient is having difficulty ambulating and plan is for her to return home. Physical therapy consulted, felt patient safe to discharge home but recommended home PT. -I spoke with patient and sisters at bedside on 08/27/2015. Patient, sisters, and nursing expressed concern that patient was not safe to return home (even with home physical therapy) given severe pain and inability to ambulate on own. I share their concern. -I spoke with Guillaume Fernando in Social Work and he is going to meet with patient and provide her options for SNF placement. Acute renal failure (ARF) 08/24/20152014 Overview: Cr 1.48 in ED on admission, normalized after IV fluids, remains stable. Lumbosacral radiculitis 02/21/2015 12/07/19 18 Rotator cuff (capsule) sprain 08/06/2014 Cervicalgia 07/17/2013 05/11/2016 Pain in joint, shoulder region 07/17/2013 1 11/23/2013 Osteoarthritis of ankle or foot, right 1 12/07/2017 Diabetes mellitus type 2, controlled, without co mplications 05/24/2011 05/11/2016 Overview: PLAN: -Home glyburide, metformin, pioglitazone held -Insulin sliding scale 1 as needed Gait disturbance 05/20/2011 05/11/2016 Hyperlipidemia 02/19/2011 02/12/2014 Osteoarthrosis, unspecified whether generalized or localized, pelvic region and thigh 11/16/2010 09/15/2011 Degenerative arthritis of hip 10/31/2010 Overview: Severe left > right Pain in joint, pelvic region and thigh 0 09/15/2011 Thoracic or lumbosacral neuritis or radiculitis, unspecified 10/31/2010 09/15/2011 Lumbosacral spondylosis without myelopathy 10/3109/15/2011 Diabetes Mellitus Type II, Uncontrolled; 199912/01/2016 Vertigo of central origin 01/08/20102010 Peripheral vertigo, unspecified 01/08/2010 09/15/2011 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 Renal dysfunction 03/07/2017 documented as of this encounter (statuses as of 05/16/2023) [facility] History of Past illness Narrative* Problem Noted Date Diagnosed Date Resolved Date Arthralgia 03/07/2023 03/09/2023 Unable to care for self 03/27/2022 0504/2022 Right arm pain 03/27/2022 03/29/2022 Right leg pain 03/27/2022 03/29/2022 Leukocytosis 03/27/2022 03/29/2022 Sepsis 03/24/2022 04/03/2022 Acute cystitis without hematuria 03/24/2022 03/26/2022 Electrolyte imbalance 03/24/20222021 Hypomagnesemia 03/24/2022 03/26/2022 Hypokalemia 03/24/2022 03/26/2022 Elevated serum creatinine 03/24/2022 Sacroiliitis 01/25/2018 04/13/2023 Plantar fasciitis 05/25/2017 12/07/2017 CKD (chronic kidney disease) 05/11/2016 03/07/2017 Type 2 diabetes mellitus without complication 03/12/20 16 03/07/2017 Sacroiliitis 10/28/2015 12/07/2017 Constipation 08/28/2015 05/11/2016 Unable to ambulate 08/27/2015 6 Intractable low back pain 08/25/2015 Overview: PLAN: -Tylenol 650 mg po scheduled q8h -Neurontin 200 mg po tid, will uptitrate per Pain's recs -Nucynta 50 mg po q4h PRN severe pain. -Medrol dosepak initiated on 08/27/2015 -scheduled Miralax and Colace to prevent narcotic-induced constipation -MARK Huizar in Neurosurgery spoke with Dr. Martines as to whether patient requires expedited morphine pump implantation while inpatient, but Dr. Martines prefers to allow Anesthesia Pain service to treat her pain while inpatient with plan for pump implantation as outpatient. Tentatively planning for pump implantation on October 01, 2015. Neurosurgery would like patient to follow-up with Anesthesia Chronic Pain in outpatient setting. Appointment ordered (scheduled for 09/05/15 at 08:40am C25). -Greatly appreciate Serenity's recs from Chronic Pain service -Patient's niece and MARK Laura called Dr. Martines on 08/26/2015 to get an update on patient, expressed concern that patient is having difficulty ambulating and plan is for her to return home. Physical therapy consulted, felt patient safe to discharge home but recommended home PT. -I spoke with patient and sisters at bedside on 08/27/2015. Patient, sisters, and nursing expressed concern that patient was not safe to return home (even with home physical therapy) given severe pain and inability to ambulate on own. I share their concern. -I spoke with Guillaume Fernando in Social Work and he is going to meet with patient and provide her options for SNF placement. Acute renal failure (ARF) 08/24/2015 Overview: Cr 1.48 in ED on admission, normalized after IV fluids, remains stable. Lumbosacral radiculitis 02/21/201511/15 Rotator cuff (capsule) sprain 08/06/2014 03/07/2017 Cervicalgia 07/17/2013 05/11/2016 Pain in joint, shoulder region 07/17/2013 09/23/2014 Osteoarthritis of ankle or foot, right 10/19/2011 12/07/2017 Diabetes mellitus type 2, co ntrolled, without complications 05/24/2011 05/11/2016 Overview: PLAN: -Home glyburide, metformin, pioglitazone held -Insulin sliding scale 1 as needed Gait disturbance 05/20/2011 05/11/2016 Hyperlipidemia 02/19/2011 02/12/2014 Osteoarthrosis, unspecified whether generalized or localized, pelvic region and thigh 11/16/2010 09/15/2011 Degenerative arthritis of hip 10/31/2010 09/23/2014 Overview: Severe left > right Pain in joint, pelvic region and thigh 10/31/2010 09/15/2011 Thoracic or lumbosacral neur itis or radiculitis, unspecified 10/31/2010 09/15/2011 Lumbosacral spondylosis without myelopathy 10/31/2010 09/15/2011 Diabetes Mellitus Type II, Uncontrolled; 199902/23/2012/01/2016 Vertigo of central origin 01/08/2010 Peripheral vertigo, unspecified 01/08/2010 09/15/2011 Hypertonicity of bladder 04/18/200812/2010 Urinary frequency 01/11/2008 09/15/2011 Urgency of urination 10/12/2007 011 Urge incontinence 10/12/2007 12/01/2016 Other functional disorder of bladder 10/12/2007 09/15/2011 Retention of urine, unspecified 10/12/2007 12/01/2016 Postmenopausal atrophic vaginitis 10/12/2007 05/11/2016 Lumbago 05/31/2007 09/15/2011 Diabetes mellitus without me ntion of complication 04/10/2003 05/24/2011 Osteoarthrosis, unspecified whether generalized or localized, other specified sites 09/15/2011 Overview: left hip BENIGN HYPERTENSION 12/01/19 17 Overview: PLAN: Continue home lisinopril and HCTZ. Renal dysfunction 03/07/2017 documented as of this encounter (statuses as of 06/15/2023) [facility] History of Past illness Narrative* Problem Noted Date Diagnosed Date Resolved Date Arthralgia 03/07/2023 03/09/2023 Unable to care for self 03/27/2022 05/04/2022 Right arm pain 03/27/2022 03/29/2022 Right leg pain 03/27/2022 03/29/2022 Leukocytosis 03/27/2022 03/29/2022 Sepsis 03/24/2022 04/03/2022 Acute cystitis without hematuria 03/24/2022 03/26/2022 Electrolyte imbalance 03/24/20222021 Hypomagnesemia 03/24/2022 03/26/2022 Hypokalemia 03/24/2022 03/26/2022 Elevated serum creatinine 03/24/2022 Sacroiliitis 01/25/2018 04/13/2023 Plantar fasciitis 05/25/2017 12/07/2017 CKD (chronic kidney disease) 05/11/2016 03/07/2017 Type 2 diabetes mellitus without complication 03/12/20 16 03/07/2017 Sacroiliitis 10/28/2015 12/07/2017 Constipation 08/28/2015 05/11/2016 Unable to ambulate 08/27/2015 6 Intractable low back pain 08/25/2015 Overview: PLAN: -Tylenol 650 mg po scheduled q8h -Neurontin 200 mg po tid, will uptitrate per Pain's recs -Nucynta 50 mg po q4h PRN severe pain. -Medrol dosepak initiated on 08/27/2015 -scheduled Miralax and Colace to prevent narcotic-induced constipation -MARK Huizar in Neurosurgery spoke with Dr. Martines as to whether patient requires expedited morphine pump implantation while inpatient, but Dr. Martines prefers to allow Anesthesia Pain service to treat her pain while inpatient with plan for pump implantation as outpatient. Tentatively planning for pump implantation on October 01, 2015. Neurosurgery would like patient to follow-up with Anesthesia Chronic Pain in outpatient setting. Appointment ordered (scheduled for 09/05/15 at 08:40am C25). -Greatly appreciate Serenity's recs from Chronic Pain service -Patient's niece and POA Laura called Dr. Martines on 08/26/2015 to get an update on patient, expressed concern that patient is having difficulty ambulating and plan is for her to return home. Physical therapy consulted, felt patient safe to discharge home but recommended home PT. -I spoke with patient and sisters at bedside on 08/27/2015. Patient, sisters, and nursing expressed concern that patient was not safe to return home (even with home physical therapy) given severe pain and inability to ambulate on own. I share their concern. -I spoke with Guillaume Abdullahi in Social Work and he is going to meet with patient and provide her options for SNF placement. Acute renal failure (ARF) 08/24/2015 Overview: Cr 1.48 in ED on admission, normalized after IV fluids, remains stable. Lumbosacral radiculitis 02/21/201511/15 Rotator cuff (capsule) sprain 08/06/2014 03/07/2017 Cervicalgia 07/17/2013 05/11/2016 Pain in joint, shoulder region 07/17/2013 09/23/2014 Osteoarthritis of ankle or foot, right 10/19/2011 12/07/2017 Diabetes mellitus type 2, co ntrolled, without complications 05/24/2011 05/11/2016 Overview: PLAN: -Home glyburide, metformin, pioglitazone held -Insulin sliding scale 1 as needed Gait disturbance 05/20/2011 05/11/2016 Hyperlipidemia 02/19/2011 02/12/2014 Osteoarthrosis, unspecified whether generalized or localized, pelvic region and thigh 11/16/2010 09/15/2011 Degenerative arthritis of hip 10/31/2010 09/23/2014 Overview: Severe left > right Pain in joint, pelvic region and thigh 10/31/2010 09/15/2011 Thoracic or lumbosacral neur itis or radiculitis, unspecified 10/31/2010 09/15/2011 Lumbosacral spondylosis without myelopathy 10/31/2010 09/15/2011 Diabetes Mellitus Type II, Uncontrolled; 199902/23/20 10 12/01/2016 Vertigo of central origin 01/08/2010 Peripheral vertigo, unspecified 01/08/2010 09/15/2011 Hypertonicity of bladder 04/18/200812/2010 Urinary frequency 01/11/2008 09/15/2011 Urgency of urination 10/12/2007 011 Urge incontinence 10/12/2007 12/01/2016 Other functional disorder of bladder 10/12/2007 09/15/2011 Retention of urine, unspecified 10/12/2007 12/01/2016 Postmenopausal atrophic vaginitis 10/12/2007 05/11/2016 Lumbago 05/31/2007 09/15/2011 Diabetes mellitus without me ntion of complication 04/10/2003 05/24/2011 Osteoarthrosis, unspecified whether generalized or localized, other specified sites 09/15/2011 Overview: left hip BENIGN HYPERTENSION 12/01/19 17 Overview: PLAN: Continue home lisinopril and HCTZ. Renal dysfunction 03/07/2017 documented as of this encounter (statuses as of 06/23/2023) [facility] History of Past illness Narrative* Problem Noted Date Diagnosed Date Resolved Date Arthralgia 03/07/2023 03/09/2023 Unable to care for self 03/27/2022 05/04/2022 Right arm pain 03/27/2022 03/29/2022 Right leg pain 03/27/2022 03/29/2022 Leukocytosis 03/27/2022 03/29/2022 Sepsis 03/24/2022 04/03/2022 Acute cystitis without hematuria 03/24/2022 03/26/2022 Electrolyte imbalance 03/24/20222021 Hypomagnesemia 03/24/2022 03/26/2022 Hypokalemia 03/24/2022 03/26/2022 Elevated serum creatinine 03/24/2022 Sacroiliitis 01/25/2018 04/13/2023 Plantar fasciitis 05/25/2017 12/07/2017 CKD (chronic kidney disease) 05/11/2016 03/07/2017 Type 2 diabetes mellitus without complication 03/12/20 16 03/07/2017 Sacroiliitis 10/28/2015 12/07/2017 Constipation 08/28/2015 05/11/2016 Unable to ambulate 08/27/2015 6 Intractable low back pain 08/25/2015 Overview: PLAN: -Tylenol 650 mg po scheduled q8h -Neurontin 200 mg po tid, will uptitrate per Pain's recs -Nucynta 50 mg po q4h PRN severe pain. -Medrol dosepak initiated on 08/27/2015 -scheduled Miralax and Colace to prevent narcotic-induced constipation -MARK Huizar in Neurosurgery spoke with Dr. Martines as to whether patient requires expedited morphine pump implantation while inpatient, but Dr. Martines prefers to allow Anesthesia Pain service to treat her pain while inpatient with plan for pump implantation as outpatient. Tentatively planning for pump implantation on October 01, 2015. Neurosurgery would like patient to follow-up with Anesthesia Chronic Pain in outpatient setting. Appointment ordered (scheduled for 09/05/15 at 08:40am C25). -Greatly appreciate Serenity's recs from Chronic Pain service -Patient's niece and MALLORYCece Laura called Dr. Martines on 08/26/2015 to get an update on patient, expressed concern that patient is having difficulty ambulating and plan is for her to return home. Physical therapy consulted, felt patient safe to discharge home but recommended home PT. -I spoke with patient and sisters at bedside on 08/27/2015. Patient, sisters, and nursing expressed concern that patient was not safe to return home (even with home physical therapy) given severe pain and inability to ambulate on own. I share their concern. -I spoke with Guillaume Fernando in Social Work and he is going to meet with patient and provide her options for SNF placement. Acute renal failure (ARF) 08/24/2015 Overview: Cr 1.48 in ED on admission, normalized after IV fluids, remains stable. Lumbosacral radiculitis 02/21/201511/15 Rotator cuff (capsule) sprain 08/06/2014 03/07/2017 Cervicalgia 07/17/2013 05/11/2016 Pain in joint, shoulder region 07/17/2013 09/23/2014 Osteoarthritis of ankle or foot, right 10/19/2011 12/07/2017 Diabetes mellitus type 2, co ntrolled, without complications 05/24/2011 05/11/2016 Overview: PLAN: -Home glyburide, metformin, pioglitazone held -Insulin sliding scale 1 as needed Gait disturbance 05/20/2011 05/11/2016 Hyperlipidemia 02/19/2011 02/12/2014 Osteoarthrosis, unspecified whether generalized or localized, pelvic region and thigh 11/16/2010 09/15/2011 Degenerative arthritis of hip 10/31/2010 09/23/2014 Overview: Severe left > right Pain in joint, pelvic region and thigh 10/31/2010 09/15/2011 Thoracic or lumbosacral neur itis or radiculitis, unspecified 10/31/2010 09/15/2011 Lumbosacral spondylosis without myelopathy 10/31/2010 09/15/2011 Diabetes Mellitus Type II, Uncontrolled; 199902/23/2012/01/2016 Vertigo of central origin 01/08/2010 Peripheral vertigo, unspecified 01/08/2010 09/15/2011 Hypertonicity of bladder 04/18/200812/2010 Urinary frequency 01/11/2008 09/15/2011 Urgency of urination 10/12/2007 011 Urge incontinence 10/12/2007 12/01/2016 Other functional disorder of bladder 10/12/2007 09/15/2011 Retention of urine, unspecified 10/12/2007 12/01/2016 Postmenopausal atrophic vaginitis 10/12/2007 05/11/2016 Lumbago 05/31/2007 09/15/2011 Diabetes mellitus without me ntion of complication 04/10/2003 05/24/2011 Osteoarthrosis, unspecified whether generalized or localized, other specified sites 09/15/2011 Overview: left hip BENIGN HYPERTENSION 12/01/19 17 Overview: PLAN: Continue home lisinopril and HCTZ. Renal dysfunction 03/07/2017 documented as of this encounter (statuses as of 08/31/2023) [facility] History of Past illness Narrative* Problem Noted Date Diagnosed Date Resolved Date Arthralgia 03/07/2023 03/09/2023 Unable to care for self 03/27/2022 05/04/2022 Right arm pain 03/27/2022 03/29/2022 Right leg pain 03/27/2022 03/29/2022 Leukocytosis 03/27/2022 03/29/2022 Sepsis 03/24/2022 04/03/2022 Acute cystitis without hematuria 03/24/2022 03/26/2022 Electrolyte imbalance 03/24/20222021 Hypomagnesemia 03/24/2022 03/26/2022 Hypokalemia 03/24/2022 03/26/2022 Elevated serum creatinine 03/24/2022 Sacroiliitis 01/25/2018 04/13/2023 Plantar fasciitis 05/25/2017 12/07/2017 CKD (chronic kidney disease) 05/11/2016 03/07/2017 Type 2 diabetes mellitus without complication 03/12/20 16 03/07/2017 Sacroiliitis 10/28/2015 12/07/2017 Constipation 08/28/2015 05/11/2016 Unable to ambulate 08/27/2015 6 Intractable low back pain 08/25/2015 Overview: PLAN: -Tylenol 650 mg po scheduled q8h -Neurontin 200 mg po tid, will uptitrate per Pain's recs -Nucynta 50 mg po q4h PRN severe pain. -Medrol dosepak initiated on 08/27/2015 -scheduled Miralax and Colace to prevent narcotic-induced constipation -MARK Huizar in Neurosurgery spoke with Dr. Martines as to whether patient requires expedited morphine pump implantation while inpatient, but Dr. Martines prefers to allow Anesthesia Pain service to treat her pain while inpatient with plan for pump implantation as outpatient. Tentatively planning for pump implantation on October 01, 2015. Neurosurgery would like patient to follow-up with Anesthesia Chronic Pain in outpatient setting. Appointment ordered (scheduled for 09/05/15 at 08:40am C25). -Greatly appreciate Serenity's recs from Chronic Pain service -Patient's niece and POA Laura called Dr. Martines on 08/26/2015 to get an update on patient, expressed concern that patient is having difficulty ambulating and plan is for her to return home. Physical therapy consulted, felt patient safe to discharge home but recommended home PT. -I spoke with patient and sisters at bedside on 08/27/2015. Patient, sisters, and nursing expressed concern that patient was not safe to return home (even with home physical therapy) given severe pain and inability to ambulate on own. I share their concern. -I spoke with Guillaume Fernando in Social Work and he is going to meet with patient and provide her options for SNF placement. Acute renal failure (ARF) 08/24/2015 Overview: Cr 1.48 in ED on admission, normalized after IV fluids, remains stable. Lumbosacral radiculitis 02/21/201511/15 Rotator cuff (capsule) sprain 08/06/2014 03/07/2017 Cervicalgia 07/17/2013 05/11/2016 Pain in joint, shoulder region 07/17/2013 09/23/2014 Osteoarthritis of ankle or foot, right 10/19/2011 12/07/2017 Diabetes mellitus type 2, co ntrolled, without complications 05/24/2011 05/11/2016 Overview: PLAN: -Home glyburide, metformin, pioglitazone held -Insulin sliding scale 1 as needed Gait disturbance 05/20/2011 05/11/2016 Hyperlipidemia 02/19/2011 02/12/2014 Osteoarthrosis, unspecified whether generalized or localized, pelvic region and thigh 11/16/2010 09/15/2011 Degenerative arthritis of hip 10/31/2010 09/23/2014 Overview: Severe left > right Pain in joint, pelvic region and thigh 10/31/2010 09/15/2011 Thoracic or lumbosacral neur itis or radiculitis, unspecified 10/31/2010 09/15/2011 Lumbosacral spondylosis without myelopathy 10/31/2010 09/15/2011 Diabetes Mellitus Type II, Uncontrolled; 199902/23/20 10 12/01/2016 Vertigo of central origin 01/08/2010 Peripheral vertigo, unspecified 01/08/2010 09/15/2011 Hypertonicity of bladder 04/18/200812/2010 Urinary frequency 01/11/2008 09/15/2011 Urgency of urination 10/12/2007 011 Urge incontinence 10/12/2007 12/01/2016 Other functional disorder of bladder 10/12/2007 09/15/2011 Retention of urine, unspecified 10/12/2007 12/01/2016 Postmenopausal atrophic vaginitis 10/12/2007 05/11/2016 Lumbago 05/31/2007 09/15/2011 Diabetes mellitus without me ntion of complication 04/10/2003 05/24/2011 Osteoarthrosis, unspecified whether generalized or localized, other specified sites 09/15/2011 Overview: left hip BENIGN HYPERTENSION 12/01/19 17 Overview: PLAN: Continue home lisinopril and HCTZ. Renal dysfunction 03/07/2017 documented as of this encounter (statuses as of 09/06/2023) [facility] History of Past illness Narrative* Problem Noted Date Diagnosed Date Resolved Date Arthralgia 03/07/2023 03/09/2023 Unable to care for self 03/27/2022 0504/2022 Right arm pain 03/27/2022 03/29/2022 Right leg pain 03/27/2022 03/29/2022 Leukocytosis 03/27/2022 03/29/2022 Sepsis 03/24/2022 04/03/2022 Acute cystitis without hematuria 03/24/2022 03/26/2022 Electrolyte imbalance 03/24/20222021 Hypomagnesemia 03/24/2022 03/26/2022 Hypokalemia 03/24/2022 03/26/2022 Elevated serum creatinine 03/24/2022 Sacroiliitis 01/25/2018 04/13/2023 Plantar fasciitis 05/25/2017 12/07/2017 CKD (chronic kidney disease) 05/11/2016 03/07/2017 Type 2 diabetes mellitus without complication 03/12/20 16 03/07/2017 Sacroiliitis 10/28/2015 12/07/2017 Constipation 08/28/2015 05/11/2016 Unable to ambulate 08/27/201505/11/ 6 Intractable low back pain 08/25/2015 Overview: PLAN: -Tylenol 650 mg po scheduled q8h -Neurontin 200 mg po tid, will uptitrate per Pain's recs -Nucynta 50 mg po q4h PRN severe pain. -Medrol dosepak initiated on 08/27/2015 -scheduled Miralax and Colace to prevent narcotic-induced constipation -MARK Huizar in Neurosurgery spoke with Dr. Martines as to whether patient requires expedited morphine pump implantation while inpatient, but Dr. Martines prefers to allow Anesthesia Pain service to treat her pain while inpatient with plan for pump implantation as outpatient. Tentatively planning for pump implantation on October 01, 2015. Neurosurgery would like patient to follow-up with Anesthesia Chronic Pain in outpatient setting. Appointment ordered (scheduled for 09/05/15 at 08:40am C25). -Greatly appreciate Serenity's recs from Chronic Pain service -Patient's niece and MARK Sanchez called Dr. Martines on 08/26/2015 to get an update on patient, expressed concern that patient is having difficulty ambulating and plan is for her to return home. Physical therapy consulted, felt patient safe to discharge home but recommended home PT. -I spoke with patient and sisters at bedside on 08/27/2015. Patient, sisters, and nursing expressed concern that patient was not safe to return home (even with home physical therapy) given severe pain and inability to ambulate on own. I share their concern. -I spoke with Guillaume Fernando in Social Work and he is going to meet with patient and provide her options for SNF placement. Acute renal failure (ARF) 08/24/2015 Overview: Cr 1.48 in ED on admission, normalized after IV fluids, remains stable. Lumbosacral radiculitis 02/21/201511/15 Rotator cuff (capsule) sprain 08/06/2014 03/07/2017 Cervicalgia 07/17/2013 05/11/2016 Pain in joint, shoulder region 07/17/2013 09/23/2014 Osteoarthritis of ankle or foot, right 10/19/2011 12/07/2017 Diabetes mellitus type 2, co ntrolled, without complications 05/24/2011 05/11/2016 Overview: PLAN: -Home glyburide, metformin, pioglitazone held -Insulin sliding scale 1 as needed Gait disturbance 05/20/2011 05/11/2016 Hyperlipidemia 02/19/2011 02/12/2014 Osteoarthrosis, unspecified whether generalized or localized, pelvic region and thigh 11/16/2010 09/15/2011 Degenerative arthritis of hip 10/31/2010 09/23/2014 Overview: Severe left > right Pain in joint, pelvic region and thigh 10/31/2010 09/15/2011 Thoracic or lumbosacral neur itis or radiculitis, unspecified 10/31/2010 09/15/2011 Lumbosacral spondylosis without myelopathy 10/31/2010 09/15/2011 Diabetes Mellitus Type II, Uncontrolled; 199902/23/2012/01/2016 Vertigo of central origin 01/08/2010 Peripheral vertigo, unspecified 01/08/2010 09/15/2011 Hypertonicity of bladder 04/18/200812/2010 Urinary frequency 01/11/2008 09/15/2011 Urgency of urination 10/12/2007 011 Urge incontinence 10/12/2007 12/01/2016 Other functional disorder of bladder 10/12/2007 09/15/2011 Retention of urine, unspecified 10/12/2007 12/01/2016 Postmenopausal atrophic vaginitis 10/12/2007 05/11/2016 Lumbago 05/31/2007 09/15/2011 Diabetes mellitus without me ntion of complication 04/10/2003 05/24/2011 Osteoarthrosis, unspecified whether generalized or localized, other specified sites 09/15/2011 Overview: left hip BENIGN HYPERTENSION 12/01/19 17 Overview: PLAN: Continue home lisinopril and HCTZ. Renal dysfunction 03/07/2017 documented as of this encounter (statuses as of 10/14/2023) [facility] History of Past illness Narrative* Problem Noted Date Diagnosed Date Resolved Date Arthralgia 03/07/2023 03/09/2023 Unable to care for self 03/27/2022 05/04/2022 Right arm pain 03/27/2022 03/29/2022 Right leg pain 03/27/2022 03/29/2022 Leukocytosis 03/27/2022 03/29/2022 Sepsis 03/24/2022 04/03/2022 Acute cystitis without hematuria 03/24/2022 03/26/2022 Electrolyte imbalance 03/24/20222021 Hypomagnesemia 03/24/2022 03/26/2022 Hypokalemia 03/24/2022 03/26/2022 Elevated serum creatinine 03/24/2022 Sacroiliitis 01/25/2018 04/13/2023 Plantar fasciitis 05/25/2017 12/07/2017 CKD (chronic kidney disease) 05/11/2016 03/07/2017 Type 2 diabetes mellitus without complication 03/12/2003/07/2017 Sacroiliitis 10/28/2015 12/07/2017 Constipation 08/28/2015 05/11/2016 Unable to ambulate 08/27/2015 6 Intractable low back pain 08/25/2015 Overview: PLAN: -Tylenol 650 mg po scheduled q8h -Neurontin 200 mg po tid, will uptitrate per Pain's recs -Nucynta 50 mg po q4h PRN severe pain. -Medrol dosepak initiated on 08/27/2015 -scheduled Miralax and Colace to prevent narcotic-induced constipation -MARK Huizar in Neurosurgery spoke with Dr. Martines as to whether patient requires expedited morphine pump implantation while inpatient, but Dr. Martines prefers to allow Anesthesia Pain service to treat her pain while inpatient with plan for pump implantation as outpatient. Tentatively planning for pump implantation on October 01, 2015. Neurosurgery would like patient to follow-up with Anesthesia Chronic Pain in outpatient setting. Appointment ordered (scheduled for 09/05/15 at 08:40am C25). -Greatly appreciate Serenity's recs from Chronic Pain service -Patient's niece and POA Laura called Dr. Martines on 08/26/2015 to get an update on patient, expressed concern that patient is having difficulty ambulating and plan is for her to return home. Physical therapy consulted, felt patient safe to discharge home but recommended home PT. -I spoke with patient and sisters at bedside on 08/27/2015. Patient, sisters, and nursing expressed concern that patient was not safe to return home (even with home physical therapy) given severe pain and inability to ambulate on own. I share their concern. -I spoke with Guillaume Janecece in Social Work and he is going to meet with patient and provide her options for SNF placement. Acute renal failure (ARF) 08/24/2015 Overview: Cr 1.48 in ED on admission, normalized after IV fluids, remains stable. Lumbosacral radiculitis 02/21/201511/15 Rotator cuff (capsule) sprain 08/06/2014 03/07/2017 Cervicalgia 07/17/2013 05/11/2016 Pain in joint, shoulder region 07/17/2013 09/23/2014 Osteoarthritis of ankle or foot, right 10/19/2011 12/07/2017 Diabetes mellitus type 2, co ntrolled, without complications 05/24/2011 05/11/2016 Overview: PLAN: -Home glyburide, metformin, pioglitazone held -Insulin sliding scale 1 as needed Gait disturbance 05/20/2011 05/11/2016 Hyperlipidemia 02/19/2011 02/12/2014 Osteoarthrosis, unspecified whether generalized or localized, pelvic region and thigh 11/16/2010 09/15/2011 Degenerative arthritis of hip 10/31/2010 09/23/2014 Overview: Severe left > right Pain in joint, pelvic region and thigh 10/31/2010 09/15/2011 Thoracic or lumbosacral neur itis or radiculitis, unspecified 10/31/2010 09/15/2011 Lumbosacral spondylosis without myelopathy 10/31/2010 09/15/2011 Diabetes Mellitus Type II, Uncontrolled; 199902/23/20 10 12/01/2016 Vertigo of central origin 01/08/2010 Peripheral vertigo, unspecified 01/08/2010 09/15/2011 Hypertonicity of bladder 04/18/200812/2010 Urinary frequency 01/11/2008 09/15/2011 Urgency of urination 10/12/2007 011 Urge incontinence 10/12/2007 12/01/2016 Other functional disorder of bladder 10/12/2007 09/15/2011 Retention of urine, unspecified 10/12/2007 12/01/2016 Postmenopausal atrophic vaginitis 10/12/2007 05/11/2016 Lumbago 05/31/2007 09/15/2011 Diabetes mellitus without me ntion of complication 04/10/2003 05/24/2011 Osteoarthrosis, unspecified whether generalized or localized, other specified sites 09/15/2011 Overview: left hip BENIGN HYPERTENSION 12/01/19 17 Overview: PLAN: Continue home lisinopril and HCTZ. Renal dysfunction 03/07/2017 documented as of this encounter (statuses as of 01/12/2024) [facility] History of Past illness Narrative* Problem Noted Date Diagnosed Date Resolved Date Arthralgia 03/07/2023 03/09/2023 Unable to care for self 03/27/202203/14 Right arm pain 03/27/2022 03/29/2022 Right leg pain 03/27/2022 03/29/2022 Leukocytosis 03/27/2022 03/29/2022 Sepsis 03/24/2022 04/03/2022 Acute cystitis without hematuria 03/24/2022 03/26/2022 Electrolyte imbalance 03/24/20222021 Hypomagnesemia 03/24/2022 03/26/2022 Hypokalemia 03/24/2022 03/26/2022 Elevated serum creatinine 03/24/2022 Sacroiliitis 01/25/2018 04/13/2023 Plantar fasciitis 05/25/2017 12/07/2017 CKD (chronic kidney disease) 05/11/2016 03/07/2017 Type 2 diabetes mellitus without complication 03/12/20 16 03/07/2017 Sacroiliitis 10/28/2015 12/07/2017 Constipation 08/28/2015 05/11/2016 Unable to ambulate 08/27/2015 6 Intractable low back pain 08/25/2015 Overview: PLAN: -Tylenol 650 mg po scheduled q8h -Neurontin 200 mg po tid, will uptitrate per Pain's recs -Nucynta 50 mg po q4h PRN severe pain. -Medrol dosepak initiated on 08/27/2015 -scheduled Miralax and Colace to prevent narcotic-induced constipation -MARK Huizar in Neurosurgery spoke with Dr. Martines as to whether patient requires expedited morphine pump implantation while inpatient, but Dr. Martines prefers to allow Anesthesia Pain service to treat her pain while inpatient with plan for pump implantation as outpatient. Tentatively planning for pump implantation on October 01, 2015. Neurosurgery would like patient to follow-up with Anesthesia Chronic Pain in outpatient setting. Appointment ordered (scheduled for 09/05/15 at 08:40am C25). -Greatly appreciate Serenity's recs from Chronic Pain service -Patient's niece and MARK Sanchez called Dr. Martines on 08/26/2015 to get an update on patient, expressed concern that patient is having difficulty ambulating and plan is for her to return home. Physical therapy consulted, felt patient safe to discharge home but recommended home PT. -I spoke with patient and sisters at bedside on 08/27/2015. Patient, sisters, and nursing expressed concern that patient was not safe to return home (even with home physical therapy) given severe pain and inability to ambulate on own. I share their concern. -I spoke with Guillaume Fernando in Social Work and he is going to meet with patient and provide her options for SNF placement. Acute renal failure (ARF) 08/24/2015 Overview: Cr 1.48 in ED on admission, normalized after IV fluids, remains stable. Lumbosacral radiculitis 02/21/201511/15 Rotator cuff (capsule) sprain 08/06/2014 03/07/2017 Cervicalgia 07/17/2013 05/11/2016 Pain in joint, shoulder region 07/17/2013 09/23/2014 Osteoarthritis of ankle or foot, right 10/19/2011 12/07/2017 Diabetes mellitus type 2, co ntrolled, without complications 05/24/2011 05/11/2016 Overview: PLAN: -Home glyburide, metformin, pioglitazone held -Insulin sliding scale 1 as needed Gait disturbance 05/20/2011 05/11/2016 Hyperlipidemia 02/19/2011 02/12/2014 Osteoarthrosis, unspecified whether generalized or localized, pelvic region and thigh 11/16/2010 09/15/2011 Degenerative arthritis of hip 10/31/2010 09/23/2014 Overview: Severe left > right Pain in joint, pelvic region and thigh 10/31/2010 09/15/2011 Thoracic or lumbosacral neur itis or radiculitis, unspecified 10/31/2010 09/15/2011 Lumbosacral spondylosis without myelopathy 10/31/2010 09/15/2011 Diabetes Mellitus Type II, Uncontrolled; 199902/23/2012/01/2016 Vertigo of central origin 01/08/2010 Peripheral vertigo, unspecified 01/08/2010 09/15/2011 Hypertonicity of bladder 04/18/200812/2010 Urinary frequency 01/11/2008 09/15/2011 Urgency of urination 10/12/2007 011 Urge incontinence 10/12/2007 12/01/2016 Other functional disorder of bladder 10/12/2007 09/15/2011 Retention of urine, unspecified 10/12/2007 12/01/2016 Postmenopausal atrophic vaginitis 10/12/2007 05/11/2016 Lumbago 05/31/2007 09/15/2011 Diabetes mellitus without me ntion of complication 04/10/2003 05/24/2011 Osteoarthrosis, unspecified whether generalized or localized, other specified sites 09/15/2011 Overview: left hip BENIGN HYPERTENSION 12/01/19 17 Overview: PLAN: Continue home lisinopril and HCTZ. Renal dysfunction 03/07/2017 documented as of this encounter (statuses as of 01/24/2024) [facility] History of Past illness Narrative* Problem Noted Date Diagnosed Date Resolved Date Arthralgia 03/07/2023 03/09/2023 Unable to care for self 03/27/2022 05/04/2022 Right arm pain 03/27/2022 03/29/2022 Right leg pain 03/27/2022 03/29/2022 Leukocytosis 03/27/2022 03/29/2022 Sepsis 03/24/2022 04/03/2022 Acute cystitis without hematuria 03/24/2022 03/26/2022 Electrolyte imbalance 03/24/20222021 Hypomagnesemia 03/24/2022 03/26/2022 Hypokalemia 03/24/2022 03/26/2022 Elevated serum creatinine 03/24/2022 Sacroiliitis 01/25/2018 04/13/2023 Plantar fasciitis 05/25/2017 12/07/2017 CKD (chronic kidney disease) 05/11/2016 03/07/2017 Type 2 diabetes mellitus without complication 03/12/2003/07/2017 Sacroiliitis 10/28/2015 12/07/2017 Constipation 08/28/2015 05/11/2016 Unable to ambulate 08/27/2015 6 Intractable low back pain 08/25/2015 Overview: PLAN: -Tylenol 650 mg po scheduled q8h -Neurontin 200 mg po tid, will uptitrate per Pain's recs -Nucynta 50 mg po q4h PRN severe pain. -Medrol dosepak initiated on 08/27/2015 -scheduled Miralax and Colace to prevent narcotic-induced constipation -MARK Huizar in Neurosurgery spoke with Dr. Martines as to whether patient requires expedited morphine pump implantation while inpatient, but Dr. Martines prefers to allow Anesthesia Pain service to treat her pain while inpatient with plan for pump implantation as outpatient. Tentatively planning for pump implantation on October 01, 2015. Neurosurgery would like patient to follow-up with Anesthesia Chronic Pain in outpatient setting. Appointment ordered (scheduled for 09/05/15 at 08:40am C25). -Greatly appreciate Serenity's recs from Chronic Pain service -Patient's niece and POA Laura called Dr. Martines on 08/26/2015 to get an update on patient, expressed concern that patient is having difficulty ambulating and plan is for her to return home. Physical therapy consulted, felt patient safe to discharge home but recommended home PT. -I spoke with patient and sisters at bedside on 08/27/2015. Patient, sisters, and nursing expressed concern that patient was not safe to return home (even with home physical therapy) given severe pain and inability to ambulate on own. I share their concern. -I spoke with Guillaume Fernando in Social Work and he is going to meet with patient and provide her options for SNF placement. Acute renal failure (ARF) 08/24/2015 Overview: Cr 1.48 in ED on admission, normalized after IV fluids, remains stable. Lumbosacral radiculitis 02/21/201511/15 Rotator cuff (capsule) sprain 08/06/2014 03/07/2017 Cervicalgia 07/17/2013 05/11/2016 Pain in joint, shoulder region 07/17/2013 09/23/2014 Osteoarthritis of ankle or foot, right 10/19/2011 12/07/2017 Diabetes mellitus type 2, co ntrolled, without complications 05/24/2011 05/11/2016 Overview: PLAN: -Home glyburide, metformin, pioglitazone held -Insulin sliding scale 1 as needed Gait disturbance 05/20/2011 05/11/2016 Hyperlipidemia 02/19/2011 02/12/2014 Osteoarthrosis, unspecified whether generalized or localized, pelvic region and thigh 11/16/2010 09/15/2011 Degenerative arthritis of hip 10/31/2010 09/23/2014 Overview: Severe left > right Pain in joint, pelvic region and thigh 10/31/2010 09/15/2011 Thoracic or lumbosacral neur itis or radiculitis, unspecified 10/31/2010 09/15/2011 Lumbosacral spondylosis without myelopathy 10/31/2010 09/15/2011 Diabetes Mellitus Type II, Uncontrolled; 199902/23/20 10 12/01/2016 Vertigo of central origin 01/08/2010 Peripheral vertigo, unspecified 01/08/2010 09/15/2011 Hypertonicity of bladder 04/18/200812/2010 Urinary frequency 01/11/2008 09/15/2011 Urgency of urination 10/12/2007 011 Urge incontinence 10/12/2007 12/01/2016 Other functional disorder of bladder 10/12/2007 09/15/2011 Retention of urine, unspecified 10/12/2007 12/01/2016 Postmenopausal atrophic vaginitis 10/12/2007 05/11/2016 Lumbago 05/31/2007 09/15/2011 Diabetes mellitus without me ntion of complication 04/10/2003 05/24/2011 Osteoarthrosis, unspecified whether generalized or localized, other specified sites 09/15/2011 Overview: left hip BENIGN HYPERTENSION 12/01/19 17 Overview: PLAN: Continue home lisinopril and HCTZ. Renal dysfunction 03/07/2017 documented as of this encounter (statuses as of 02/01/2024) [facility] History of Past illness Narrative* Problem Noted Date Diagnosed Date Resolved Date Arthralgia 03/07/2023 03/09/2023 Unable to care for self 03/27/2022 0504/2022 Right arm pain 03/27/2022 03/29/2022 Right leg pain 03/27/2022 03/29/2022 Leukocytosis 03/27/2022 03/29/2022 Sepsis 03/24/2022 04/03/2022 Acute cystitis without hematuria 03/24/2022 03/26/2022 Electrolyte imbalance 03/24/20222021 Hypomagnesemia 03/24/2022 03/26/2022 Hypokalemia 03/24/2022 03/26/2022 Elevated serum creatinine 03/24/2022 Sacroiliitis 01/25/2018 04/13/2023 Plantar fasciitis 05/25/2017 12/07/2017 CKD (chronic kidney disease) 05/11/2016 03/07/2017 Type 2 diabetes mellitus without complication 03/12/20 16 03/07/2017 Sacroiliitis 10/28/2015 12/07/2017 Constipation 08/28/2015 05/11/2016 Unable to ambulate 08/27/2015 6 Intractable low back pain 08/25/2015 Overview: PLAN: -Tylenol 650 mg po scheduled q8h -Neurontin 200 mg po tid, will uptitrate per Pain's recs -Nucynta 50 mg po q4h PRN severe pain. -Medrol dosepak initiated on 08/27/2015 -scheduled Miralax and Colace to prevent narcotic-induced constipation -MARK Huizar in Neurosurgery spoke with Dr. Martines as to whether patient requires expedited morphine pump implantation while inpatient, but Dr. Martines prefers to allow Anesthesia Pain service to treat her pain while inpatient with plan for pump implantation as outpatient. Tentatively planning for pump implantation on October 01, 2015. Neurosurgery would like patient to follow-up with Anesthesia Chronic Pain in outpatient setting. Appointment ordered (scheduled for 09/05/15 at 08:40am C25). -Greatly appreciate Serenity's recs from Chronic Pain service -Patient's niece and MARK Sanchez called Dr. Martines on 08/26/2015 to get an update on patient, expressed concern that patient is having difficulty ambulating and plan is for her to return home. Physical therapy consulted, felt patient safe to discharge home but recommended home PT. -I spoke with patient and sisters at bedside on 08/27/2015. Patient, sisters, and nursing expressed concern that patient was not safe to return home (even with home physical therapy) given severe pain and inability to ambulate on own. I share their concern. -I spoke with Guillaume Fernando in Social Work and he is going to meet with patient and provide her options for SNF placement. Acute renal failure (ARF) 08/24/2015 Overview: Cr 1.48 in ED on admission, normalized after IV fluids, remains stable. Lumbosacral radiculitis 02/21/201511/15 Rotator cuff (capsule) sprain 08/06/2014 03/07/2017 Cervicalgia 07/17/2013 05/11/2016 Pain in joint, shoulder region 07/17/2013 09/23/2014 Osteoarthritis of ankle or foot, right 10/19/2011 12/07/2017 Diabetes mellitus type 2, co ntrolled, without complications 05/24/2011 05/11/2016 Overview: PLAN: -Home glyburide, metformin, pioglitazone held -Insulin sliding scale 1 as needed Gait disturbance 05/20/2011 05/11/2016 Hyperlipidemia 02/19/2011 02/12/2014 Osteoarthrosis, unspecified whether generalized or localized, pelvic region and thigh 11/16/2010 09/15/2011 Degenerative arthritis of hip 10/31/2010 09/23/2014 Overview: Severe left > right Pain in joint, pelvic region and thigh 10/31/2010 09/15/2011 Thoracic or lumbosacral neur itis or radiculitis, unspecified 10/31/2010 09/15/2011 Lumbosacral spondylosis without myelopathy 10/31/2010 09/15/2011 Diabetes Mellitus Type II, Uncontrolled; 199902/23/2012/01/2016 Vertigo of central origin 01/08/2010 Peripheral vertigo, unspecified 01/08/2010 09/15/2011 Hypertonicity of bladder 04/18/200812/2010 Urinary frequency 01/11/2008 09/15/2011 Urgency of urination 10/12/2007 011 Urge incontinence 10/12/2007 12/01/2016 Other functional disorder of bladder 10/12/2007 09/15/2011 Retention of urine, unspecified 10/12/2007 12/01/2016 Postmenopausal atrophic vaginitis 10/12/2007 05/11/2016 Lumbago 05/31/2007 09/15/2011 Diabetes mellitus without me ntion of complication 04/10/2003 05/24/2011 Osteoarthrosis, unspecified whether generalized or localized, other specified sites 09/15/2011 Overview: left hip BENIGN HYPERTENSION 12/01/19 17 Overview: PLAN: Continue home lisinopril and HCTZ. Renal dysfunction 03/07/2017 documented as of this encounter (statuses as of 02/01/2024) [facility] History of Past illness Narrative* Problem Noted Date Diagnosed Date Resolved Date Arthralgia 03/07/2023 03/09/2023 Unable to care for self 03/27/202203/14 Right arm pain 03/27/2022 03/29/2022 Right leg pain 03/27/2022 03/29/2022 Leukocytosis 03/27/2022 03/29/2022 Sepsis 03/24/2022 04/03/2022 Acute cystitis without hematuria 03/24/2022 03/26/2022 Electrolyte imbalance 03/24/20222021 Hypomagnesemia 03/24/2022 03/26/2022 Hypokalemia 03/24/2022 03/26/2022 Elevated serum creatinine 03/24/2022 Sacroiliitis 01/25/2018 04/13/2023 Plantar fasciitis 05/25/2017 12/07/2017 CKD (chronic kidney disease) 05/11/2016 03/07/2017 Type 2 diabetes mellitus without complication 03/12/20 16 03/07/2017 Sacroiliitis 10/28/2015 12/07/2017 Constipation 08/28/2015 05/11/2016 Unable to ambulate 08/27/2015 6 Intractable low back pain 08/25/2015 Overview: PLAN: -Tylenol 650 mg po scheduled q8h -Neurontin 200 mg po tid, will uptitrate per Pain's recs -Nucynta 50 mg po q4h PRN severe pain. -Medrol dosepak initiated on 08/27/2015 -scheduled Miralax and Colace to prevent narcotic-induced constipation -MARK Huizar in Neurosurgery spoke with Dr. Martines as to whether patient requires expedited morphine pump implantation while inpatient, but Dr. Martines prefers to allow Anesthesia Pain service to treat her pain while inpatient with plan for pump implantation as outpatient. Tentatively planning for pump implantation on October 01, 2015. Neurosurgery would like patient to follow-up with Anesthesia Chronic Pain in outpatient setting. Appointment ordered (scheduled for 09/05/15 at 08:40am C25). -Greatly appreciate Serenity's recs from Chronic Pain service -Patient's niece and POA Laura called Dr. Martines on 08/26/2015 to get an update on patient, expressed concern that patient is having difficulty ambulating and plan is for her to return home. Physical therapy consulted, felt patient safe to discharge home but recommended home PT. -I spoke with patient and sisters at bedside on 08/27/2015. Patient, sisters, and nursing expressed concern that patient was not safe to return home (even with home physical therapy) given severe pain and inability to ambulate on own. I share their concern. -I spoke with Guillaume Fernando in Social Work and he is going to meet with patient and provide her options for SNF placement. Acute renal failure (ARF) 08/24/2015 Overview: Cr 1.48 in ED on admission, normalized after IV fluids, remains stable. Lumbosacral radiculitis 02/21/201511/15 Rotator cuff (capsule) sprain 08/06/2014 03/07/2017 Cervicalgia 07/17/2013 05/11/2016 Pain in joint, shoulder region 07/17/2013 09/23/2014 Osteoarthritis of ankle or foot, right 10/19/2011 12/07/2017 Diabetes mellitus type 2, co ntrolled, without complications 05/24/2011 05/11/2016 Overview: PLAN: -Home glyburide, metformin, pioglitazone held -Insulin sliding scale 1 as needed Gait disturbance 05/20/2011 05/11/2016 Hyperlipidemia 02/19/2011 02/12/2014 Osteoarthrosis, unspecified whether generalized or localized, pelvic region and thigh 11/16/2010 09/15/2011 Degenerative arthritis of hip 10/31/2010 09/23/2014 Overview: Severe left > right Pain in joint, pelvic region and thigh 10/31/2010 09/15/2011 Thoracic or lumbosacral neur itis or radiculitis, unspecified 10/31/2010 09/15/2011 Lumbosacral spondylosis without myelopathy 10/31/2010 09/15/2011 Diabetes Mellitus Type II, Uncontrolled; 199902/23/2012/01/2016 Vertigo of central origin 01/08/2010 Peripheral vertigo, unspecified 01/08/2010 09/15/2011 Hypertonicity of bladder 04/18/200812/2010 Urinary frequency 01/11/2008 09/15/2011 Urgency of urination 10/12/2007 011 Urge incontinence 10/12/2007 12/01/2016 Other functional disorder of bladder 10/12/2007 09/15/2011 Retention of urine, unspecified 10/12/2007 12/01/2016 Postmenopausal atrophic vaginitis 10/12/2007 05/11/2016 Lumbago 05/31/2007 09/15/2011 Diabetes mellitus without me ntion of complication 04/10/2003 05/24/2011 Osteoarthrosis, unspecified whether generalized or localized, other specified sites 09/15/2011 Overview: left hip BENIGN HYPERTENSION 12/01/19 Overview: PLAN: Continue home lisinopril and HCTZ. Renal dysfunction 03/07/2017 documented as of this encounter (statuses as of 02/29/2024) [facility] Miscellaneous Notes* Telephone Encounter - Ok King PA-C - 02/22/2023 9:47 AM EDT The following approved medication requests have been transmitted electronically. Requested Prescriptions Signed Prescriptions Disp Refills lisinopril-hydroCHLOROthiazide (ZESTORETIC) 20-25 mg per tablet 90 tablet 3 Sig: TAKE 1 TABLET BY MOUTH ONCE DAILY Authorizing Provider: OK KING PA-C : covering provider for Migdalia Cramer MD * Telephone Encounter - Jame Hernandez MA - 02/22/2023 8:06 AM EDT Patient has been identified by name and date of : Yes Last office visit in this department: 10/23/2022 FOV: 04/23/2023 RX INSTRUCTIONS: Patient aware RX will be sent to pharmacy. No need to notify patient. Patient phones requesting refills as follows: Requested Prescriptions Pending Prescriptions Disp Refills lisinopril-hydroCHLOROthiazide (ZESTORETIC) 20-25 mg per tablet [Pharmacy Med Name: Lisinopril-hydroCHLOROthiazide 20-25 MG Oral Tablet] 90 tablet 3 Sig: TAKE 1 TABLET BY MOUTH ONCE DAILY Please review and advise. Jame Hernandez MA documented in this encounterMercy [facility]03-08-2023 Miscellaneous Notes* Telephone Encounter - Willie Kaur APRN.CNP - 01/19/2023 3:48 PM EST The following approved medication requests have been transmitted electronically. Requested Prescriptions Signed Prescriptions Disp Refills blood sugar diagnostic (ONETOUCH ULTRA TEST) test strip 100 Strip 3 Sig: Test blood sugar once daily Authorizing Provider: WILLIE KAUR APRN.CNP * Telephone Encounter - Cinthia Grande - 01/19/2023 10:19 AM EST Yusuf alvarado caregiver is calling today, : 1935 Allergies: Patient has no known allergies. (home) [phone] (cell) Reason for call: patient needs a refill on the following medications Disp Refills Start End blood sugar diagnostic (ONETOUCH ULTRA BLUE TEST STRIP) test strip 300 Strip 3 2019 Sig: USE DIRECTED TO TEST BLOOD SUGARS 3 TIMES A DAY Sent to pharmacy as: blood sugar diagnostic (ONETOUCH ULTRA BLUE TEST STRIP) test strip Class: Normal Order: [id number] E-Prescribing Status: Receipt confirmed by pharmacy (2019 10:20 AM EST) Please advise and make patient aware Thanks documented in this encounterMer[facility]02-14-2023 Miscellaneous Notes* Telephone Encounter - Willie Kaur APRN.CNP - 12/28/2022 12:58 PM EST The following approved medication requests have been transmitted electronically. Requested Prescriptions Signed Prescriptions Disp Refills meloxicam (MOBIC) 15 mg tablet 90 tablet 3 Sig: TAKE 1 TABLET BY MOUTH ONCE DAILY NEEDED FOR PAIN Authorizing Provider: WILLIE KAUR APRN.DRAKE * Telephone Encounter - Sandrita Christianson LPN - 12/28/2022 12:12 PM EST Patient has been identified by name and date of : Yes Last office visit in this department: 10/23/2022 RX INSTRUCTIONS: Patient aware RX will be sent to pharmacy. No need to notify patient. Pharmacy requesting refills as follows: Requested Prescriptions Pending Prescriptions Disp Refills meloxicam (MOBIC) 15 mg tablet [Pharmacy Med Name: Meloxicam 15 MG Oral Tablet] 90 tablet 3 Sig: TAKE 1 TABLET BY MOUTH ONCE DAILY NEEDED FOR PAIN Please review and advise. Sandrita Christianson LPN documented in this encounterMercy Hospital12-10-2022 History of Present illness Narrative* Migdalia Cramer MD - 10/23/2022 9:06 AM EST SUBJECTIVE: Yusuf Medina is a 86 year old female who presents for evaluation and treatment of Diabetes Mellitus, Hypertension, Hyperlipidemia, and CKD Had labs done 10/21 Declined vaccines BS 120 this morning Due for diab foot exam Patient concerns: none She has continued Miralax daily to prevent constipation DIABETES MELLITUS: Since our last visit she denies chest pain or dyspnea , numbness, tingling or pain in extremities, and low sugar/hypoglycemic reactions. Patients last HgbA1C was Hemoglobin A1C (%) Date Value 10/21/2022 7.5 04/27/2022 7.1 03/24/2022 7.1 10/12/2021 7.4 09/10/2020 6.7 01/24/2020 6.8 ). HTN: Denies chest pain, palpitations, dyspnea, and peripheral edema. Patient denies any side effects of her medication(s) and is compliant with their regimen. Last BP 10/23/22 : 145/82 05/08/22 : 130/70 04/03/22 : 137/68 HYPERLIPIDEMIA: Current therapy of pravastatin (Pravachol) 20 mg. Denies side effects of muscle weakness or achiness. OBJECTIVE: BP 145/82 Pulse 87 Wt 55.5 kg (122 lb 4.8 oz) BMI 20.99 kg/m Gen: Appears well, in NAD Neck: thyroid normal size, non-tender, without nodularity Chest: Lungs clear to auscultation. No wheezing, rhonchi, rales. CV: Regular rate and rhythm EXT: no significant lower extremity edema. Feet: Shoes and socks removed and sensitive to 10 gm monofilament ASSESSMENT/PLAN (E11.9) Diabetes mellitus, non-insulin dependent (NIDDM or type II) (HCC) (primary encounter diagnosis) (E78.5) Hyperlipidemia with target LDL less than 100 (Z13.5) Screening for diabetic retinopathy (I12.9, N18.32) Hypertensive kidney disease with stage 3b chronic kidney disease (HCC) (E11.69, E78.5) Hyperlipidemia associated with type 2 diabetes mellitus (HCC) (I10) Essential hypertension (E11.22, N18.30) CKD stage 3 due to type 2 diabetes mellitus (HCC) Continue current meds RF pravastatin Due for eye exam Declines vaccines BMP and A1c in March Return to office in 6 months for follow-up. Migdalia Cramer MD documented in this encounterMercy Hospital11-21-2022 Miscellaneous Notes* Telephone Encounter - Willie Kaur APRN.CNP - 10/04/2022 12:47 PM EST The following approved medication requests have been transmitted electronically. Requested Prescriptions Signed Prescriptions Disp Refills metFORMIN (GLUCOPHAGE) 500 mg tablet 180 tablet 3 Sig: TAKE 1 TABLET BY MOUTH TWICE DAILY WITH MEALS Authorizing Provider: WILLIE KAUR APRN.CNP * Telephone Encounter - Sandrita Christianson LPN - 10/04/2022 8:56 AM EST Patient has been identified by name and date of : Yes Last office visit in this department: 05/08/2022 FOV- 10/23/22 RX INSTRUCTIONS: Patient aware RX will be sent to pharmacy. No need to notify patient. Patient phones requesting refills as follows: Requested Prescriptions Pending Prescriptions Disp Refills metFORMIN (GLUCOPHAGE) 500 mg tablet [Pharmacy Med Name: metFORMIN HCl 500 MG Oral Tablet] 180 tablet 3 Sig: TAKE 1 TABLET BY MOUTH TWICE DAILY WITH MEALS Please review and advise. Sandrita Christianson LPN documented in this encounterMercy Hospital11-17-2022 Miscellaneous Notes* Telephone Encounter - Willie Kaur APRN.CNP - 09/30/2022 10:43 AM EST The following approved medication requests have been transmitted electronically. Requested Prescriptions Signed Prescriptions Disp Refills lansoprazole (PREVACID) 30 mg capsule 90 capsule 3 Sig: TAKE 1 CAPSULE BY MOUTH ONCE DAILY Authorizing Provider: WILLIE KAUR APRN.CNP * Telephone Encounter - Sandrita Christianson LPN - 09/30/2022 8:16 AM EST Patient has been identified by name and date of : Yes Last office visit in this department: 05/08/2022 [facility]-10/23/22 RX INSTRUCTIONS: Patient aware RX will be sent to pharmacy. No need to notify patient. Patient phones requesting refills as follows: Requested Prescriptions Pending Prescriptions Disp Refills lansoprazole (PREVACID) 30 mg capsule [Pharmacy Med Name: Lansoprazole 30 MG Oral Capsule Delayed Release] 90 capsule 3 Sig: TAKE 1 CAPSULE BY MOUTH ONCE DAILY Please review and advise. Sandrita Christianson LPN documented in this encounterMercy Hospital10-04-2022 Miscellaneous Notes* Telephone Encounter - Agustina Hernandez - 08/17/2022 5:18 PM EDT Patient/caregiver has been notified that medication has been refilled and sent to the pharmacy Thank you * Telephone Encounter - Willie Kaur APRN.CNP - 08/17/2022 5:05 PM EDT Please notify patient/caregiver that Rx has been sent as requested The following approved medication requests have been transmitted electronically. Requested Prescriptions Signed Prescriptions Disp Refills glipiZIDE (GLUCOTROL XL) 2.5 mg 24 hr tablet 90 tablet 3 Sig: TAKE 1 TABLET BY MOUTH EVERY DAY Authorizing Provider: WILLIE KAUR glipiZIDE (GLUCOTROL XL) 2.5 mg 24 hr tablet 14 tablet 0 Sig: Take 1 tablet by mouth once daily. Authorizing Provider: WILLIE KAUR APRN.CNP * Telephone Encounter - Jodi Perez - 08/17/2022 4:52 PM EDT Patient has been identified by name and date of : Yes Requested Prescriptions Pending Prescriptions Disp Refills glipiZIDE XL (GLUCOTROL XL) 2.5 mg 24 hr tablet [Pharmacy Med Name: GLIPIZIDE ER 2.5 MG TABLET] 90 tablet 3 Sig: TAKE 1 TABLET BY MOUTH EVERY DAY glipiZIDE XL (GLUCOTROL XL) 2.5 mg 24 hr tablet 14 tablet 0 Sig: Take 1 tablet by mouth once daily. RX INSTRUCTIONS: Demetria, caregiver is calling, patient is out of medication and she only wants 14 days to local [facility] - I made a copy and corrected the amount. Then I entered her request for the mail order going to [facility]. Each is assigned to the correct Pharmacy . Patient aware RX will be sent to pharmacy. Please call Demetria once sent at [phone]. Jodi Perez documented in this encounterMercy Hospital07-29-2022 Miscellaneous Notes* Telephone Encounter - Willie Kaur APRN.CNP - 06/11/2022 4:48 PM EDT Nothing needed from clinical. I'm closing this encounter Willie Kaur APRN.CNP * Telephone Encounter - Sandrita Christianson LPN - 06/11/2022 2:43 PM EDT Also see PCP's OV note from 05/08/22 as reference. Does clinical need to do anything regarding this or can encounter be closed? * Telephone Encounter - Willie Kaur APRN.CNP - 06/10/2022 10:04 AM EDT Noted Fecal occult blood test negative Per 04/08/22 telephone encounter: Dr. Cramer notes states IFOBT, CBC, Retic count at end of March Recheck Urine too to ensure UTI resolved Cont iron supplement Asked them to consider diagnostic colonoscopy for anemia There is an order for fecal occult blood that was placed on 03/29/22. That is the IFOBT he was referencing in his note. They should be able to cook pickled meat a kit form [facility] lab. He also asked them to consider a diagnostic colonoscopy, which is not Cologuard. Willie Kaur APRN.CNP * Telephone Encounter - Sandrita Christianson LPN - 06/10/2022 9:56 AM EDT Fax received from [employer] that pt has not completed Cologuard that was ordered on 04/08/22. Fax scanned into pt's chart (according to chart, pt had diag occult blood exam on 04/27/22) Please advise Thank you documented in this encounterMercy Hospital07-15-2022 Miscellaneous Notes* Telephone Encounter - Willie Kaur APRN.CNP - 05/28/2022 1:43 PM EDT Noted and agree. Short term supply sent The following approved medication requests have been transmitted electronically. Signed Prescriptions Disp Refills glipiZIDE (GLUCOTROL XL) 2.5 mg 24 hr tablet 30 tablet 0 Sig: Take 1 tablet by mouth once daily. DANIEL: No Authorizing Provider: WILLIE KAUR APRN.DRAKE * Telephone Encounter - Sandrita Christianson LPN - 05/28/2022 10:01 AM EDT Demetria called office back with questions- Is glipizide on mail order because she does not have any glipizide left? Director Of Restaurant Operations then proceeded to ask questions regarding pioglitazone-is she supposed to be taking this? She just received this in the mail. informed her per pt's medication list, yes she should be taking that medication once daily. She stated her went to pt's house yesterday & found that pt is out of glipizide & she does not have any. I asked who sets pt's medications up, demetria stated, They set medications up for pt. According to chart Glipizide Rx was sent to [facility] on 10/09/21, 90 tabs with 3 refills. I told Demetria to call [facility] to ensure they have an active prescription on file for pt, & if not to call our office back so we can send new prescription. Please send Short term supply of Glipizide to [facility] pharmacy- [address] (pended for provider). 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 Pt informed Demetria that she is out of her Glyburide. PSS transferred call to this nurse, spoke with Demetria who informed me that pt told her she does not have any Glyburide left in her bottle. Reviewed medication list & chart with Demetria on phone. Skyla from 04/20/21- shows Glyburide was not covered under pt's insurance & was switched to Glipizide 2.5mg (please see as reference). informed Demetria of message, & that pt should not be taking the Glyburide, only the Glipizide 2.5mg once daily per medication instructions in chart. Angelastated she will have her go over to pt's home & see what she is & has been taking, & if there are any issues/concerns/questions they will call our office. documented in this encounterMercy Hospital06-25-2022 History of Present illness Narrative* Migdalia Cramer MD - 05/08/2022 8:08 AM EDT SUBJECTIVE: Yusuf Medina is a 86 year old female who presents for evaluation and treatment of Diabetes Mellitus, Hypertension and Hyperlipidemia Patient concerns: F/U from 04/03 office visit Pain in extremities has improved Had her repeat labs done She has not taken her daily meds yet today Pt discharged from [facility] on 03/29/22. Admitted for: Pain in arms and legs with elevated white count and urinary tract infection Admitted to [facility] 03/23-03/26 and 03/26-03/29 (pain worsened and she returned to ED 5 hrs after D/C) R arm pain Was unable to do ADLs independently E Coli UTI Rx'd Fe supplement for Fe-def anemia iFOBT ordered as well as repeat CBC and retic count in 2 weeks Hgb 9.3-10.6 during admissions Hgb was 11.8 10/12/21 Last colonoscopy was 06/14/2012, normal No blood in stool She has had some increased fatigue, less energy Plan at March visit: Declined PT Declined ortho referral for eval for R JIMMY/R TSA Pain management is goal Cont Mobic 15mg daily, topical voltaren gel on affected areas up to 4 times per day, lidocaine patches on affected areas IFOBT, CBC, Retic count at end of March Recheck Urine too to ensure UTI resolved Cont iron supplement Asked them to consider diagnostic colonoscopy for anemia She has been taking the daily iron supplement No complaint today of fatigue, CP, Palp, SOB/STOUT OA Pain is much better, no pain today Continues to take Mobic daily Constipation resolved May only be taking 1 iron tab a day No blood in stool or dark stool and no abd pain, N/V Appetite good, weight inc 2# since MIKE Patients last HgbA1C was Hemoglobin A1C (%) Date Value 04/27/2022 7.1 03/24/2022 7.1 10/12/2021 7.4 09/10/2020 6.7 01/24/2020 6.8 ). Last BP 05/08/22 : 130/70 04/03/22 : 137/68 03/29/22 : 148/69 HYPERLIPIDEMIA: Current therapy of pravastatin (Pravachol) 20 mg. Most recent LDL: LDL Cholesterol (mg/dL) Date Value 12/02/2017 91 05/20/2017 123 LDL Cholesterol, Nonfasting (mg/dL) Date Value 10/12/2021 89 01/24/2020 82 Current Outpatient Medications on File Prior to Visit Medication Sig lisinopril-hydroCHLOROthiazide (PRINZIDE, ZESTORETIC) 20-25 mg per tablet TAKE 1 TABLET BY MOUTH ONCE DAILY amLODIPine (NORVASC) 5 mg tablet TAKE 1 TABLET BY MOUTH ONCE DAILY meloxicam (MOBIC) 15 mg tablet Take 1 tablet by mouth once daily. As needed for pain metFORMIN (GLUCOPHAGE) 500 mg tablet Take 1 tablet by mouth twice daily with meals. pravastatin (PRAVACHOL) 20 mg tablet Take 1 tablet by mouth once daily. lansoprazole (PREVACID) 30 mg capsule Take 1 capsule by mouth once daily. glipiZIDE (GLUCOTROL XL) 2.5 mg 24 hr tablet Take 1 tablet by mouth once daily. pioglitazone (ACTOS) 45 mg tablet TAKE 1 TABLET BY MOUTH ONCE DAILY blood sugar diagnostic (ONETOUCH ULTRA BLUE TEST STRIP) test strip USE DIRECTED TO TEST BLOOD SUGARS 3 TIMES A DAY polyethylene glycol 3350 (MIRALAX) 17 gram/dose powder 1 capful dissolved in 8 oz water once daily as needed for regular stools. Can use daily. melatonin 3 mg cap 1 capsule 3 hours before bedtime. (Patient taking differently: 1 capsule 3 hoursbefore bedtime. Takes as needed per pt/pt's son ) No current facility-administered medications on file prior to visit. Social History Tobacco Use Smoking status: Never Smoker Smokeless tobacco: Never Used Substance Use Topics Alcohol use: No Drug use: No OBJECTIVE: BP 130/70 Pulse 70 Wt 53.5 kg (117 lb 14.4 oz) BMI 20.24 kg/m Gen: Appears well, in NAD, brother here with her Neck: thyroid normal size, non-tender, without nodularity Chest: Lungs clear to auscultation. No wheezing, rhonchi, rales. CV: Regular rate and rhythm EXT: no significant lower extremity edema IFOBT neg Hgb stable at 10.7 Retic high normal Renal function stable A1c 7.1 UCx neg for UTI ASSESSMENT/PLAN (N30.01) Acute cystitis with hematuria (primary encounter diagnosis) (D50.9) Iron deficiency anemia, unspecified iron deficiency anemia type (E11.9) Diabetes mellitus, non-insulin dependent (NIDDM or type II) (HCC) (E11.22, N18.30) CKD stage 3 due to type 2 diabetes mellitus (HCC) (I10) Essential hypertension (E11.69, E78.5) Hyperlipidemia associated with type 2 diabetes mellitus (HCC) (I12.9, N18.32) Hypertensive kidney disease with stage 3b chronic kidney disease (HCC) Declined colonoscopy Fe supplement 2 times per day if possible, but at least 1 per day Fiber and Miralax as needed Increase water intake Watch for blood in stool or dark stool Careful NSAID use for OA Check CBC and Fe studies in 3 months CDM labs in 6 months with f/u at that time AD on chart, surrogates are brother Jesús and sister in [place] Migdalia Cramer MD documented in this encounterMercy Hospital06-14-2022 History of Present illness Narrative* Katia Farooq RN - 04/27/2022 3:27 PM EDT TRANSITION CARE MANAGEMENT (TCM) FOLLOW-UP NOTE Provider Kyleigh/BILLIE Spoke with caregiver Demetria -validated that she is involved in patient's care. No issues or concerns at this time. Pain is improved. Having BM's per caregiver. Declines consult to CDM. Patient identified by name and date of : YES Spoke with caregiver Demetria -validated that she is involved in patient's care. Summary: Pt discharged from [facility] on 03/29/22. Admitted for: Pain in arms and legs with elevated white count and urinary tract infection Concerns: No concerns at this time. Supervisor [employer] plan for next outreach: No further follow up needed at this time. TCM outreach complete. Signature Katia Farooq RN April 27, 2022 documented in this encounterMercy Hospital06-14-2022 Evaluation note* Diagnosis Hypertensive kidney disease with stage 3 chronic kidney disease, unspecified whether stage 3a or 3b CKD (HCC)- Primary documented in this encounter [facility] Miscellaneous Notes* Telephone Encounter - Cheryl Anders RN - 04/26/2022 5:04 PM EDT Contacted Caregiver Demetria, states pt is not uncomfortable but has not had a bowel movement in 4 days. Demetria states pt takes fiber daily Advised per Dr Cramer message. Agrees with plan * Telephone Encounter - Migdalia Cramer MD - 04/26/2022 5:01 PM EDT Noted, Miralax is on her med list. If she is typically constipated, I'd recommend taking a fiber supplement like Metamucil every day. If she's not in pain or uncomfortable, take Miralax, 17g (1 cap) daily for the next 1-3 days until she has a BM. Let us know if she doesn't go and/or develops abdominal pain due to constipation. * Telephone Encounter - Sandrita Christianson LPN - 04/26/2022 4:28 PM EDT Call placed to pt's inserting machine operator, Demetria. Informed her of the 2 blood work orders to have completed, & that pt [facility] when she goes for lab draw. Demetria also confirmed that they Did cook pickled meat IFOBT but pt Having trouble going to bathroom & having bowel movements, has been afew days since BM- Masoud states its been 4 days since last BM. She is unsure if it is miralax or metamucil pt taking for this issue. Once pt able to have BM, Demetria states pt will complete IFOBT & go to lab to have blood work completed as well as the urine. Please advise on BM's Thank you * Telephone Encounter - Juanis Tamayo PA-C - 04/26/2022 4:17 PM EDT Filed. Juanis Tamayo PA-C * Telephone Encounter - Sandrita Christianson LPN - 04/26/2022 3:47 PM EDT I pended retic count & CBC (the previous labs had an expected date of 04/12/22). * Telephone Encounter - Juanis Tamayo PA-C - 04/26/2022 1:29 PM EDT Lab tests include: IFOBT, CBC, Retic count- these labs are filed Please provide urine collection instructions. Juanis Tamayo PA-C * Telephone Encounter - Irene Francois [facility] - 04/26/2022 9:37 AM EDT Patient caregiver Demetria calling to ask about the lab order in patient chart regarding the follow up urine. She states patient received a bottle for her to hand carry her urine, is that correct? Or is it to be done when she arrives at the [facility]? And exactly which labs are to be done forscheduling? Demetria states when patient came in for labs she was told there were no orders and she does not want that to happen again. Call caregiver Demetria to discuss at [phone] documented in this [facility] Miscellaneous Notes* Telephone Encounter - Sandrita Christianson LPN - 04/08/2022 1:25 PM EDT Pt's POA/inserting machine operator Demetria notified & had no questions/concerns. * Telephone Encounter - Willie Kaur APRN.CNP - 04/08/2022 11:47 AM EDT Please notify patient that Cologuard has been ordered and [employer] will reach out [facility] mailing address. Willie Kaur APRN.DRAKE * Telephone Encounter - Yeimy Dubon - 04/08/2022 10:37 AM EDT Patient's inserting machine operator, Demetria is calling requesting the Cologuard kit. She is asking for the kit or prescription for the kit. Please return call at [phone] documented in this encounterMercy Hospital[facility]22 Instructions* Patient Instructions* Migdalia Cramer MD - 04/03/2022 8:39 AM EDT Meloxicam 15mg once daily. Diclofenac gel to affected areas up to 4 times per day. Topical lidocaine patches to affected areas (OK for multiple or to cut smaller) 2 times per day (remove old patch before applying new one). Call or return to the office if your symptoms change, worsen, or fail to improve. Have blood test, urine test, and do stool sample at lab at the end of March. Consider colonoscopy. documented in this encounterMer[facility]22 History of Present illness Narrative* Migdalia Cramer MD - 04/03/2022 8:08 AM EDT Transitional Care Management Progress Note The patients TCM visit was performed within the 14 days of discharge. Patient's Date of discharge: 03/29/22 Date of initial coordinator contact after discharge: 03/30/22 Discharge diagnosis: R arm pain Unable to do ADLs independently E Coli UTI Medication review completed Yes SUMMARY: Pt discharged from [facility] on 03/29/22. Admitted for: Pain in arms and legs with elevated white count and urinary tract infection Admitted to [facility] 03/23-03/26 and 03/26-03/29 (pain worsened and she returned to ED 5 hrs after D/C) R arm pain Unable to do ADLs independently E Coli UTI Yusuf Medina is a 86 year old female Patient presents with: Follow Up: Lovely 03/23/22, 03/26/22 Accompanied today by her brother Jesús (Demetria's ) R arm pain diagnosed as OA Pain was controlled at D/C with Mobic, topical Voltaren, and lidocaine patch Currently, this regimen decreases pain level by about 50% Has only been putting patch on hip-didn't understand it only helps pain at the site of application Home PT was recommended, pt declined In hospital PT made pain worse Rx'd Fe supplement for Fe-def anemia iFOBT ordered as well as repeat CBC and retic count in 2 weeks Hgb 9.3-10.6 during admissions Hgb was 11.8 10/12/21 Last colonoscopy was 06/14/2012, normal No blood in stool She has had some increased fatigue, less energy Pain today is 8/10, R arm ROS: (those not included in HPI) -Fever, -chills, -N/V/D, -CP, -palpitations, -SOB/STOUT 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/25/2017 CKD (chronic kidney disease) 05/11/2016 Essential hypertension, benign Hyperlipidemia LDL goal < 100 02/12/2014 Intractable low back pain 08/25/2015 Osteoarthrosis, unspecified whether generalized or localized, other specified sites Left hip Plantar fasciitis 05/25/2017 Primary insomnia 05/25/2017 Renal dysfunction Type II or unspecified type diabetes mellitus without mention of complication, not stated as uncontrolled Social History Tobacco Use Smoking status: Never Smoker Smokeless tobacco: Never Used Substance Use Topics Alcohol use: No Drug use: No Current Outpatient Medications on File Prior to Visit Medication Sig diclofenac (VOLTAREN) 1 % topical gel Apply 2 g to affected area four times daily. ferrous sulfate 325 mg (65 mg iron) tablet Take 1 tablet by mouth twice daily. lisinopril-hydroCHLOROthiazide (PRINZIDE, ZESTORETIC) 20-25 mg per tablet TAKE 1 TABLET BY MOUTH ONCE DAILY amLODIPine (NORVASC) 5 mg tablet TAKE 1 TABLET BY MOUTH ONCE DAILY meloxicam (MOBIC) 15 mg tablet Take 1 tablet by mouth once daily. As needed for pain metFORMIN (GLUCOPHAGE) 500 mg tablet Take 1 tablet by mouth twice daily with meals. pravastatin (PRAVACHOL) 20 mg tablet Take 1 tablet by mouth once daily. lansoprazole (PREVACID) 30 mg capsule Take 1 capsule by mouth once daily. glipiZIDE (GLUCOTROL XL) 2.5 mg 24 hr tablet Take 1 tablet by mouth once daily. pioglitazone (ACTOS) 45 mg tablet TAKE 1 TABLET BY MOUTH ONCE DAILY blood sugar diagnostic (ONETOUCH ULTRA BLUE TEST STRIP) test strip USE DIRECTED TO TEST BLOOD SUGARS 3 TIMES A DAY polyethylene glycol 3350 (MIRALAX) 17 gram/dose powder 1 capful dissolved in 8 oz water once daily as needed for regular stools. Can use daily. lidocaine (SALONPAS) 4 % patch Apply 1 Patch as directed once daily. To affected area (Patient not taking: Reported on 04/03/2022 ) melatonin 3 mg cap 1 capsule 3 hours before bedtime. (Patient not taking: Reported on 04/03/2022 ) No current facility-administered medications on file prior to visit. Patient has no known allergies. Physical Exam: BP 137/68 Pulse 76 Temp 36.7 C (98 F) Wt 52.3 kg (115 lb 6.4 oz) BMI 19.81 kg/m GEN: Pleasant female in no acute distress, sitting comfortably on exam table CARDIO: Heart with a regular rate and rhythm LUNGS: Clear to auscultation bilaterally without wheezes, ronchi, or rales. Good air movement. EXTREMITIES: R shoulder severely decreased ROM with pain, juan decreased abduction. TTP R lat hip NEURO: Gait slow, antalgic favoring R leg, steady CT R shoulder: Severe RIGHT glenohumeral and moderate acromioclavicular osteoarthritis. Chronic full-thickness rotator cuff tear with rotator cuff arthropathy and atrophy of the rotator cuff muscles. R hip and pelvis X-ray: Right hip and AP pelvis: Advanced degenerative osteoarthritis of the right femoral acetabular joint with [id number] contact, subchondral sclerosis and marginal osteophytosis. Left hip prosthesis appears intact. Unchanged right superior and inferior pubic rami fractures. A/P: (N30.00) Acute cystitis without hematuria (primary encounter diagnosis) (I12.9, N18.32) Hypertensive kidney disease with stage 3b chronic kidney disease (HCC) (E11.69, E78.5) Hyperlipidemia associated with type 2 diabetes mellitus (HCC) (I10) Essential hypertension (E11.22, N18.30) CKD stage 3 due to type 2 diabetes mellitus ([facility]) (E11.9) Diabetes mellitus, non-insulin dependent (NIDDM or type II) ([facility]) (D50.9) Iron deficiency anemia, unspecified iron deficiency anemia type (D64.9) Normocytic anemia (M19.019) Shoulder arthritis (M16.10) Hip arthritis (S46.011S) Traumatic complete tear of right rotator cuff, sequela (M46.1) Sacroiliitis (HCC) Declined PT Declined ortho referral for eval for R JIMMY/R TSA Pain management is goal Cont Mobic 15mg daily, topical voltaren gel on affected areas up to 4 times per day, lidocaine patches on affected areas IFOBT, CBC, Retic count at end of March Recheck Urine too to ensure UTI resolved Cont iron supplement Asked them to consider diagnostic colonoscopy for anemia See pt. instructions. Call/RTO sooner if sxs change or worsen. I have reviewed the patient s last hospital course including diagnostic testing performed during this hospitalization, their discharge medications, and my assessment and plan with the patient and anyfamily members present at today s visit. Migdalia Cramer MD * Migdalia Cramer MD - 04/03/2022 8:06 AM EDT documented in this encounterMercy Hospital05-17-2022 Miscellaneous Notes* Telephone Encounter - Willie Kaur APRN.CNP - 03/30/2022 4:50 PM EDT Noted and agree with OV 04/03/22 Willie Kaur APRN.CNP * Telephone Encounter - Sandrita Christianson LPN - 03/30/2022 11:47 AM EDT Pt was triaged in separate phone encounter today (please see as reference). Pt scheduled with PCP for Tuesday04/03/22 per triage. * Telephone Encounter - Willie Kaur APRN.CNP - 03/29/2022 3:59 PM EDT Planning to be discharged today Please check 03/30/22 make sure that she schedules a hospital follow up Willie Kaur APRN.CNP documented in this encounterMercy Hospital05-17-2022 Miscellaneous Notes* Telephone Encounter - Willie Kaur APRN.CNP - 03/30/2022 10:53 AM EDT Noted and agree with OV Willie Kaur APRN.CNP * Telephone Encounter - Magnolia Johnson RN - 03/30/2022 10:17 AM EDT Spoke with patients youth care professional Demetria. She had questions for the doctor about the plan going forward with Yusuf regarding the pains she has been having and her decrease blood counts (started on iron). Also her recent UTI (on antibiotics till 04/01). The patient has been admitted to the hospital 2xrecently and was just d/c yesterday. She states she is doing okay right now but she was send on on medication for pain (volearen gel and lidocaine patches) and youth care professional is not sure how long she should be using those (advised for now to continue until follow up appointment) Offered several appointments this week but her youth care professional Demetria is having trouble getting her to appointment because she herself recently broke her ankle so she needs to make sure her is offwork to drive them. Appointment scheduled with Dr. Cramer for ED follow up Tuesday morning at 8am. Advised to call back with any worsening symptoms or concerns prior to Tuesday and we would get herin sooner if needed. Reason for Disposition Requesting regular office appointment Answer Assessment - Initial Assessment Questions Recently in the hospital. Pt youth care professional wanted a follow up to discuss med changes and how to help with her pain more correction. Protocols used: INFORMATION ONLY CALL - NO [id number] * Telephone Encounter - ZANA Buck - 03/30/2022 9:16 AM EDT This morning Yusuf caregiver called with some concerns . She has had the patient in the ER two times in the last few days. She is experiencing all over painand would like more suggestions on how to help the patient . Please Advise Thanks documented in this encounterMercy [facility]05-14-2022 History of Past illness Narrative* Problem Noted Date Resolved Date Unable to care for self 03/27/2022 03/29/20 22 Right arm pain 03/27/2022 03/29/2022 Right leg pain 03/27/2022 03/29/2022 Leukocytosis 03/27/2022 03/29/2022 Acute cystitis without hematuria 03/24/2022 03/26/2022 Hypomagnesemia 03/24/2022 03/26/2022 Hypokalemia 03/24/2022 03/26/2022 Elevated serum creatinine 03/24/20222021 Plantar fasciitis 05/25/2017 12/07/2017 CKD (chronic kidney disease) 05/11/2016 Type 2 diabetes mellitus without complication 03/07/2017 Sacroiliitis 10/28/2015 12/07/2017 Constipation 08/28/2015 05/11/2016 Unable to ambulate 08/27/2015 05/11/2016 Intractable low back pain 08/25/20152016 Overview: PLAN: -Tylenol 650 mg po scheduled q8h -Neurontin 200 mg po tid, will uptitrate per Pain's recs -Nucynta 50 mg po q4h PRN severe pain. -Medrol dosepak initiated on 08/27/2015 -scheduled Miralax and Colace to prevent narcotic-induced constipation -MARK Huizar in Neurosurgery spoke with Dr. Martines as to whether patient requires expedited morphine pump implantation while inpatient, but Dr. Martines prefers to allow Anesthesia Pain service to treat her pain while inpatient with plan for pump implantation as outpatient. Tentatively planning for pump implantation on October 01, 2015. Neurosurgery would like patient to follow-up with Anesthesia Chronic Pain in outpatient setting. Appointment ordered (scheduled for 09/05/15 at 08:40am C25). -Greatly appreciate Serenity's recs from Chronic Pain service -Patient's niece and POA Laura called Dr. Martines on 08/26/2015 to get an update on patient, expressed concern that patient is having difficulty ambulating and plan is for her to return home. Physical therapy consulted, felt patient safe to discharge home but recommended home PT. -I spoke with patient and sisters at bedside on 08/27/2015. Patient, sisters, and nursing expressed concern that patient was not safe to return home (even with home physical therapy) given severe pain and inability to ambulate on own. I share their concern. -I spoke with Guillaume Fernando in Social Work and he is going to meet with patient and provide her options for SNF placement. Acute renal failure (ARF) 08/24/20152014 Overview: Cr 1.48 in ED on admission, normalized after IV fluids, remains stable. Lumbosacral radiculitis 02/21/2015 12/07/19 Rotator cuff (capsule) sprain 08/06/2014 Cervicalgia 07/17/2013 05/11/2016 Pain in joint, shoulder region 07/17/2013 1 11/23/2013 Osteoarthritis of ankle or foot, right 1 12/07/2017 Diabetes mellitus type 2, controlled, without co mplications 05/24/2011 05/11/2016 Overview: PLAN: -Home glyburide, metformin, pioglitazone held -Insulin sliding scale 1 as needed Gait disturbance 05/20/2011 05/11/2016 Hyperlipidemia 02/19/2011 02/12/2014 Osteoarthrosis, unspecified whether generalized or localized, pelvic region and thigh 11/16/2010 09/15/2011 Degenerative arthritis of hip 10/31/2010 Overview: Severe left > right Pain in joint, pelvic region and thigh 0 09/15/2011 Thoracic or lumbosacral neuritis or radiculitis, unspecified 10/31/2010 09/15/2011 Lumbosacral spondylosis without myelopathy 10/3109/15/2011 Diabetes Mellitus Type II, Uncontrolled; 199912/01/2016 Vertigo of central origin 01/08/20102010 Peripheral vertigo, unspecified 01/08/2010 09/15/2011 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 Renal dysfunction 03/07/2017 documented as of this encounter (statuses as of 03/30/2022) [facility] Past illness Narrative* Problem Noted Date Resolved Date Unable to care for self 03/27/2022 03/29/20 Right arm pain 03/27/2022 03/29/2022 Right leg pain 03/27/2022 03/29/2022 Leukocytosis 03/27/2022 03/29/2022 Acute cystitis without hematuria 03/24/2022 03/26/2022 Hypomagnesemia 03/24/2022 03/26/2022 Hypokalemia 03/24/2022 03/26/2022 Elevated serum creatinine 03/24/20222021 Plantar fasciitis 05/25/2017 12/07/2017 CKD (chronic kidney disease) 05/11/2016 Type 2 diabetes mellitus without complication 03/07/2017 Sacroiliitis 10/28/2015 12/07/2017 Constipation 08/28/2015 05/11/2016 Unable to ambulate 08/27/2015 05/11/2016 Intractable low back pain 08/25/20152016 Overview: PLAN: -Tylenol 650 mg po scheduled q8h -Neurontin 200 mg po tid, will uptitrate per Pain's recs -Nucynta 50 mg po q4h PRN severe pain. -Medrol dosepak initiated on 08/27/2015 -scheduled Miralax and Colace to prevent narcotic-induced constipation -MARK Huizar in Neurosurgery spoke with Dr. Martines as to whether patient requires expedited morphine pump implantation while inpatient, but Dr. Martines prefers to allow Anesthesia Pain service to treat her pain while inpatient with plan for pump implantation as outpatient. Tentatively planning for pump implantation on October 01, 2015. Neurosurgery would like patient to follow-up with Anesthesia Chronic Pain in outpatient setting. Appointment ordered (scheduled for 09/05/15 at 08:40am C25). -Greatly appreciate Serenity's recs from Chronic Pain service -Patient's niece and POA Laura called Dr. Martines on 08/26/2015 to get an update on patient, expressed concern that patient is having difficulty ambulating and plan is for her to return home. Physical therapy consulted, felt patient safe to discharge home but recommended home PT. -I spoke with patient and sisters at bedside on 08/27/2015. Patient, sisters, and nursing expressed concern that patient was not safe to return home (even with home physical therapy) given severe pain and inability to ambulate on own. I share their concern. -I spoke with Guillaume Fernando in Social Work and he is going to meet with patient and provide her options for SNF placement. Acute renal failure (ARF) 08/24/20152014 Overview: Cr 1.48 in ED on admission, normalized after IV fluids, remains stable. Lumbosacral radiculitis 02/21/2015 12/07/19 18 Rotator cuff (capsule) sprain 08/06/2014 Cervicalgia 07/17/2013 05/11/2016 Pain in joint, shoulder region 07/17/2013 1 11/23/2013 Osteoarthritis of ankle or foot, right 1 12/07/2017 Diabetes mellitus type 2, controlled, without co mplications 05/24/2011 05/11/2016 Overview: PLAN: -Home glyburide, metformin, pioglitazone held -Insulin sliding scale 1 as needed Gait disturbance 05/20/2011 05/11/2016 Hyperlipidemia 02/19/2011 02/12/2014 Osteoarthrosis, unspecified whether generalized or localized, pelvic region and thigh 11/16/2010 09/15/2011 Degenerative arthritis of hip 10/31/2010 Overview: Severe left > right Pain in joint, pelvic region and thigh 0 09/15/2011 Thoracic or lumbosacral neuritis or radiculitis, unspecified 10/31/2010 09/15/2011 Lumbosacral spondylosis without myelopathy 10/3109/15/2011 Diabetes Mellitus Type II, Uncontrolled; 199912/01/2016 Vertigo of central origin 01/08/20102010 Peripheral vertigo, unspecified 01/08/2010 09/15/2011 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 Renal dysfunction 03/07/2017 documented as of this encounter (statuses as of 03/30/2022) [facility] Narrative* Problem Noted Date Resolved Date Unable to care for self 03/27/2022 03/29/20 Right arm pain 03/27/2022 03/29/2022 Right leg pain 03/27/2022 03/29/2022 Leukocytosis 03/27/2022 03/29/2022 Sepsis 03/24/2022 04/03/2022 Acute cystitis without hematuria 03/24/2022 03/26/2022 Hypomagnesemia 03/24/2022 03/26/2022 Hypokalemia 03/24/2022 03/26/2022 Elevated serum creatinine 03/24/20222021 Plantar fasciitis 05/25/2017 12/07/2017 CKD (chronic kidney disease) 05/11/2016 Type 2 diabetes mellitus without complication 03/07/2017 Sacroiliitis 10/28/2015 12/07/2017 Constipation 08/28/2015 05/11/2016 Unable to ambulate 08/27/2015 05/11/2016 Intractable low back pain 08/25/20152016 Overview: PLAN: -Tylenol 650 mg po scheduled q8h -Neurontin 200 mg po tid, will uptitrate per Pain's recs -Nucynta 50 mg po q4h PRN severe pain. -Medrol dosepak initiated on 08/27/2015 -scheduled Miralax and Colace to prevent narcotic-induced constipation -MARK Huizar in Neurosurgery spoke with Dr. Martines as to whether patient requires expedited morphine pump implantation while inpatient, but Dr. Martines prefers to allow Anesthesia Pain service to treat her pain while inpatient with plan for pump implantation as outpatient. Tentatively planning for pump implantation on October 01, 2015. Neurosurgery would like patient to follow-up with Anesthesia Chronic Pain in outpatient setting. Appointment ordered (scheduled for 09/05/15 at 08:40am C25). -Greatly appreciate Serenity's recs from Chronic Pain service -Patient's niece and MARK Sanchez called Dr. Martines on 08/26/2015 to get an update on patient, expressed concern that patient is having difficulty ambulating and plan is for her to return home. Physical therapy consulted, felt patient safe to discharge home but recommended home PT. -I spoke with patient and sisters at bedside on 08/27/2015. Patient, sisters, and nursing expressed concern that patient was not safe to return home (even with home physical therapy) given severe pain and inability to ambulate on own. I share their concern. -I spoke with Guillaume Fernando in Social Work and he is going to meet with patient and provide her options for SNF placement. Acute renal failure (ARF) 08/24/20152014 Overview: Cr 1.48 in ED on admission, normalized after IV fluids, remains stable. Lumbosacral radiculitis 02/21/2015 12/07/19 18 Rotator cuff (capsule) sprain 08/06/2014 Cervicalgia 07/17/2013 05/11/2016 Pain in joint, shoulder region 07/17/2013 1 11/23/2013 Osteoarthritis of ankle or foot, right 1 12/07/2017 Diabetes mellitus type 2, controlled, without co mplications 05/24/2011 05/11/2016 Overview: PLAN: -Home glyburide, metformin, pioglitazone held -Insulin sliding scale 1 as needed Gait disturbance 05/20/2011 05/11/2016 Hyperlipidemia 02/19/2011 02/12/2014 Osteoarthrosis, unspecified whether generalized or localized, pelvic region and thigh 11/16/2010 09/15/2011 Degenerative arthritis of hip 10/31/2010 Overview: Severe left > right Pain in joint, pelvic region and thigh 0 09/15/2011 Thoracic or lumbosacral neuritis or radiculitis, unspecified 10/31/2010 09/15/2011 Lumbosacral spondylosis without myelopathy 10/3109/15/2011 Diabetes Mellitus Type II, Uncontrolled; 199912/01/2016 Vertigo of central origin 01/08/20102010 Peripheral vertigo, unspecified 01/08/2010 09/15/2011 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 Renal dysfunction 03/07/2017 documented as of this encounter (statuses as of 04/03/2022) [facility] Narrative* Problem Noted Date Resolved Date Unable to care for self 03/27/2022 03/29/20 Right arm pain 03/27/2022 03/29/2022 Right leg pain 03/27/2022 03/29/2022 Leukocytosis 03/27/2022 03/29/2022 Sepsis 03/24/2022 04/03/2022 Acute cystitis without hematuria 03/24/2022 03/26/2022 Hypomagnesemia 03/24/2022 03/26/2022 Hypokalemia 03/24/2022 03/26/2022 Elevated serum creatinine 03/24/20222021 Plantar fasciitis 05/25/2017 12/07/2017 CKD (chronic kidney disease) 05/11/2016 Type 2 diabetes mellitus without complication 03/07/2017 Sacroiliitis 10/28/2015 12/07/2017 Constipation 08/28/2015 05/11/2016 Unable to ambulate 08/27/2015 05/11/2016 Intractable low back pain 08/25/20152016 Overview: PLAN: -Tylenol 650 mg po scheduled q8h -Neurontin 200 mg po tid, will uptitrate per Pain's recs -Nucynta 50 mg po q4h PRN severe pain. -Medrol dosepak initiated on 08/27/2015 -scheduled Miralax and Colace to prevent narcotic-induced constipation -MARK Huizar in Neurosurgery spoke with Dr. Martines as to whether patient requires expedited morphine pump implantation while inpatient, but Dr. Martines prefers to allow Anesthesia Pain service to treat her pain while inpatient with plan for pump implantation as outpatient. Tentatively planning for pump implantation on October 01, 2015. Neurosurgery would like patient to follow-up with Anesthesia Chronic Pain in outpatient setting. Appointment ordered (scheduled for 09/05/15 at 08:40am C25). -Greatly appreciate Serenity's recs from Chronic Pain service -Patient's niece and POA Laura called Dr. Martines on 08/26/2015 to get an update on patient, expressed concern that patient is having difficulty ambulating and plan is for her to return home. Physical therapy consulted, felt patient safe to discharge home but recommended home PT. -I spoke with patient and sisters at bedside on 08/27/2015. Patient, sisters, and nursing expressed concern that patient was not safe to return home (even with home physical therapy) given severe pain and inability to ambulate on own. I share their concern. -I spoke with Guillaume Fernando in Social Work and he is going to meet with patient and provide her options for SNF placement. Acute renal failure (ARF) 08/24/20152014 Overview: Cr 1.48 in ED on admission, normalized after IV fluids, remains stable. Lumbosacral radiculitis 02/21/2015 12/07/19 Rotator cuff (capsule) sprain 08/06/2014 Cervicalgia 07/17/2013 05/11/2016 Pain in joint, shoulder region 07/17/2013 1 11/23/2013 Osteoarthritis of ankle or foot, right 1 12/07/2017 Diabetes mellitus type 2, controlled, without co mplications 05/24/2011 05/11/2016 Overview: PLAN: -Home glyburide, metformin, pioglitazone held -Insulin sliding scale 1 as needed Gait disturbance 05/20/2011 05/11/2016 Hyperlipidemia 02/19/2011 02/12/2014 Osteoarthrosis, unspecified whether generalized or localized, pelvic region and thigh 11/16/2010 09/15/2011 Degenerative arthritis of hip 10/31/2010 Overview: Severe left > right Pain in joint, pelvic region and thigh 0 09/15/2011 Thoracic or lumbosacral neuritis or radiculitis, unspecified 10/31/2010 09/15/2011 Lumbosacral spondylosis without myelopathy 10/3109/15/2011 Diabetes Mellitus Type II, Uncontrolled; 199912/01/2016 Vertigo of central origin 01/08/20102010 Peripheral vertigo, unspecified 01/08/2010 09/15/2011 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 Renal dysfunction 03/07/2017 documented as of this encounter (statuses as of 04/08/2022) [facility] History of Past illness Narrative* Problem Noted Date Resolved Date Unable to care for self 03/27/2022 03/29/20 Right arm pain 03/27/2022 03/29/2022 Right leg pain 03/27/2022 03/29/2022 Leukocytosis 03/27/2022 03/29/2022 Sepsis 03/24/2022 04/03/2022 Acute cystitis without hematuria 03/24/2022 03/26/2022 Hypomagnesemia 03/24/2022 03/26/2022 Hypokalemia 03/24/2022 03/26/2022 Elevated serum creatinine 03/24/20222021 Plantar fasciitis 05/25/2017 12/07/2017 CKD (chronic kidney disease) 05/11/2016 Type 2 diabetes mellitus without complication 03/07/2017 Sacroiliitis 10/28/2015 12/07/2017 Constipation 08/28/2015 05/11/2016 Unable to ambulate 08/27/2015 05/11/2016 Intractable low back pain 08/25/20152016 Overview: PLAN: -Tylenol 650 mg po scheduled q8h -Neurontin 200 mg po tid, will uptitrate per Pain's recs -Nucynta 50 mg po q4h PRN severe pain. -Medrol dosepak initiated on 08/27/2015 -scheduled Miralax and Colace to prevent narcotic-induced constipation -MARK Huizar in Neurosurgery spoke with Dr. Martines as to whether patient requires expedited morphine pump implantation while inpatient, but Dr. Martines prefers to allow Anesthesia Pain service to treat her pain while inpatient with plan for pump implantation as outpatient. Tentatively planning for pump implantation on October 01, 2015. Neurosurgery would like patient to follow-up with Anesthesia Chronic Pain in outpatient setting. Appointment ordered (scheduled for 09/05/15 at 08:40am C25). -Greatly appreciate Serenity's recs from Chronic Pain service -Patient's niece and POA Laura called Dr. Martines on 08/26/2015 to get an update on patient, expressed concern that patient is having difficulty ambulating and plan is for her to return home. Physical therapy consulted, felt patient safe to discharge home but recommended home PT. -I spoke with patient and sisters at bedside on 08/27/2015. Patient, sisters, and nursing expressed concern that patient was not safe to return home (even with home physical therapy) given severe pain and inability to ambulate on own. I share their concern. -I spoke with Guillaume Abdullahi in Social Work and he is going to meet with patient and provide her options for SNF placement. Acute renal failure (ARF) 08/24/20152014 Overview: Cr 1.48 in ED on admission, normalized after IV fluids, remains stable. Lumbosacral radiculitis 02/21/2015 12/07/19 18 Rotator cuff (capsule) sprain 08/06/2014 Cervicalgia 07/17/2013 05/11/2016 Pain in joint, shoulder region 07/17/2013 1 11/23/2013 Osteoarthritis of ankle or foot, right 1 12/07/2017 Diabetes mellitus type 2, controlled, without co mplications 05/24/2011 05/11/2016 Overview: PLAN: -Home glyburide, metformin, pioglitazone held -Insulin sliding scale 1 as needed Gait disturbance 05/20/2011 05/11/2016 Hyperlipidemia 02/19/2011 02/12/2014 Osteoarthrosis, unspecified whether generalized or localized, pelvic region and thigh 11/16/2010 09/15/2011 Degenerative arthritis of hip 10/31/2010 Overview: Severe left > right Pain in joint, pelvic region and thigh 0 09/15/2011 Thoracic or lumbosacral neuritis or radiculitis, unspecified 10/31/2010 09/15/2011 Lumbosacral spondylosis without myelopathy 10/3109/15/2011 Diabetes Mellitus Type II, Uncontrolled; 199912/01/2016 Vertigo of central origin 01/08/20102010 Peripheral vertigo, unspecified 01/08/2010 09/15/2011 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 Renal dysfunction 03/07/2017 documented as of this encounter (statuses as of 04/26/2022) [facility] History of Past illness Narrative* Problem Noted Date Resolved Date Unable to care for self 03/27/2022 03/29/20 Right arm pain 03/27/2022 03/29/2022 Right leg pain 03/27/2022 03/29/2022 Leukocytosis 03/27/2022 03/29/2022 Sepsis 03/24/2022 04/03/2022 Acute cystitis without hematuria 03/24/2022 03/26/2022 Hypomagnesemia 03/24/2022 03/26/2022 Hypokalemia 03/24/2022 03/26/2022 Elevated serum creatinine 03/24/20222021 Plantar fasciitis 05/25/2017 12/07/2017 CKD (chronic kidney disease) 05/11/2016 Type 2 diabetes mellitus without complication 03/07/2017 Sacroiliitis 10/28/2015 12/07/2017 Constipation 08/28/2015 05/11/2016 Unable to ambulate 08/27/2015 05/11/2016 Intractable low back pain 08/25/20152016 Overview: PLAN: -Tylenol 650 mg po scheduled q8h -Neurontin 200 mg po tid, will uptitrate per Pain's recs -Nucynta 50 mg po q4h PRN severe pain. -Medrol dosepak initiated on 08/27/2015 -scheduled Miralax and Colace to prevent narcotic-induced constipation -MARK Huizar in Neurosurgery spoke with Dr. Martines as to whether patient requires expedited morphine pump implantation while inpatient, but Dr. Martines prefers to allow Anesthesia Pain service to treat her pain while inpatient with plan for pump implantation as outpatient. Tentatively planning for pump implantation on October 01, 2015. Neurosurgery would like patient to follow-up with Anesthesia Chronic Pain in outpatient setting. Appointment ordered (scheduled for 09/05/15 at 08:40am C25). -Greatly appreciate Serenity's recs from Chronic Pain service -Patient's niece and MARK Sanchez called Dr. Martines on 08/26/2015 to get an update on patient, expressed concern that patient is having difficulty ambulating and plan is for her to return home. Physical therapy consulted, felt patient safe to discharge home but recommended home PT. -I spoke with patient and sisters at bedside on 08/27/2015. Patient, sisters, and nursing expressed concern that patient was not safe to return home (even with home physical therapy) given severe pain and inability to ambulate on own. I share their concern. -I spoke with Guillaume Fernando in Social Work and he is going to meet with patient and provide her options for SNF placement. Acute renal failure (ARF) 08/24/20152014 Overview: Cr 1.48 in ED on admission, normalized after IV fluids, remains stable. Lumbosacral radiculitis 02/21/2015 12/07/19 Rotator cuff (capsule) sprain 08/06/2014 Cervicalgia 07/17/2013 05/11/2016 Pain in joint, shoulder region 07/17/2013 1 11/23/2013 Osteoarthritis of ankle or foot, right 1 12/07/2017 Diabetes mellitus type 2, controlled, without co mplications 05/24/2011 05/11/2016 Overview: PLAN: -Home glyburide, metformin, pioglitazone held -Insulin sliding scale 1 as needed Gait disturbance 05/20/2011 05/11/2016 Hyperlipidemia 02/19/2011 02/12/2014 Osteoarthrosis, unspecified whether generalized or localized, pelvic region and thigh 11/16/2010 09/15/2011 Degenerative arthritis of hip 10/31/2010 Overview: Severe left > right Pain in joint, pelvic region and thigh 0 09/15/2011 Thoracic or lumbosacral neuritis or radiculitis, unspecified 10/31/2010 09/15/2011 Lumbosacral spondylosis without myelopathy 10/3109/15/2011 Diabetes Mellitus Type II, Uncontrolled; 199912/01/2016 Vertigo of central origin 01/08/20102010 Peripheral vertigo, unspecified 01/08/2010 09/15/2011 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 Renal dysfunction 03/07/2017 documented as of this encounter (statuses as of 04/27/2022) [facility] History of Past illness Narrative* Problem Noted Date Resolved Date Unable to care for self 03/27/2022 03/29/20 Right arm pain 03/27/2022 03/29/2022 Right leg pain 03/27/2022 03/29/2022 Leukocytosis 03/27/2022 03/29/2022 Sepsis 03/24/2022 04/03/2022 Acute cystitis without hematuria 03/24/2022 03/26/2022 Hypomagnesemia 03/24/2022 03/26/2022 Hypokalemia 03/24/2022 03/26/2022 Elevated serum creatinine 03/24/20222021 Plantar fasciitis 05/25/2017 12/07/2017 CKD (chronic kidney disease) 05/11/2016 Type 2 diabetes mellitus without complication 03/07/2017 Sacroiliitis 10/28/2015 12/07/2017 Constipation 08/28/2015 05/11/2016 Unable to ambulate 08/27/2015 05/11/2016 Intractable low back pain 08/25/20152016 Overview: PLAN: -Tylenol 650 mg po scheduled q8h -Neurontin 200 mg po tid, will uptitrate per Pain's recs -Nucynta 50 mg po q4h PRN severe pain. -Medrol dosepak initiated on 08/27/2015 -scheduled Miralax and Colace to prevent narcotic-induced constipation -MARK Huizar in Neurosurgery spoke with Dr. Martines as to whether patient requires expedited morphine pump implantation while inpatient, but Dr. Martines prefers to allow Anesthesia Pain service to treat her pain while inpatient with plan for pump implantation as outpatient. Tentatively planning for pump implantation on October 01, 2015. Neurosurgery would like patient to follow-up with Anesthesia Chronic Pain in outpatient setting. Appointment ordered (scheduled for 09/05/15 at 08:40am C25). -Greatly appreciate Serenity's recs from Chronic Pain service -Patient's niece and POCece Sanchez called Dr. Martines on 08/26/2015 to get an update on patient, expressed concern that patient is having difficulty ambulating and plan is for her to return home. Physical therapy consulted, felt patient safe to discharge home but recommended home PT. -I spoke with patient and sisters at bedside on 08/27/2015. Patient, sisters, and nursing expressed concern that patient was not safe to return home (even with home physical therapy) given severe pain and inability to ambulate on own. I share their concern. -I spoke with Guillaume Fernando in Social Work and he is going to meet with patient and provide her options for SNF placement. Acute renal failure (ARF) 08/24/20152014 Overview: Cr 1.48 in ED on admission, normalized after IV fluids, remains stable. Lumbosacral radiculitis 02/21/2015 12/07/19 Rotator cuff (capsule) sprain 08/06/2014 Cervicalgia 07/17/2013 05/11/2016 Pain in joint, shoulder region 07/17/2013 1 11/23/2013 Osteoarthritis of ankle or foot, right 1 12/07/2017 Diabetes mellitus type 2, controlled, without co mplications 05/24/2011 05/11/2016 Overview: PLAN: -Home glyburide, metformin, pioglitazone held -Insulin sliding scale 1 as needed Gait disturbance 05/20/2011 05/11/2016 Hyperlipidemia 02/19/2011 02/12/2014 Osteoarthrosis, unspecified whether generalized or localized, pelvic region and thigh 11/16/2010 09/15/2011 Degenerative arthritis of hip 10/31/2010 Overview: Severe left > right Pain in joint, pelvic region and thigh 0 09/15/2011 Thoracic or lumbosacral neuritis or radiculitis, unspecified 10/31/2010 09/15/2011 Lumbosacral spondylosis without myelopathy 10/3109/15/2011 Diabetes Mellitus Type II, Uncontrolled; 199912/01/2016 Vertigo of central origin 01/08/20102010 Peripheral vertigo, unspecified 01/08/2010 09/15/2011 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 Renal dysfunction 03/07/2017 documented as of this encounter (statuses as of 05/08/2022) [facility] History of Past illness Narrative* Problem Noted Date Resolved Date Unable to care for self 03/27/2022 03/29/20 Right arm pain 03/27/2022 03/29/2022 Right leg pain 03/27/2022 03/29/2022 Leukocytosis 03/27/2022 03/29/2022 Sepsis 03/24/2022 04/03/2022 Acute cystitis without hematuria 03/24/2022 03/26/2022 Hypomagnesemia 03/24/2022 03/26/2022 Hypokalemia 03/24/2022 03/26/2022 Elevated serum creatinine 03/24/20222021 Plantar fasciitis 05/25/2017 12/07/2017 CKD (chronic kidney disease) 05/11/2016 Type 2 diabetes mellitus without complication 03/07/2017 Sacroiliitis 10/28/2015 12/07/2017 Constipation 08/28/2015 05/11/2016 Unable to ambulate 08/27/2015 05/11/2016 Intractable low back pain 08/25/20152016 Overview: PLAN: -Tylenol 650 mg po scheduled q8h -Neurontin 200 mg po tid, will uptitrate per Pain's recs -Nucynta 50 mg po q4h PRN severe pain. -Medrol dosepak initiated on 08/27/2015 -scheduled Miralax and Colace to prevent narcotic-induced constipation -MARK Huizar in Neurosurgery spoke with Dr. Martines as to whether patient requires expedited morphine pump implantation while inpatient, but Dr. Martines prefers to allow Anesthesia Pain service to treat her pain while inpatient with plan for pump implantation as outpatient. Tentatively planning for pump implantation on October 01, 2015. Neurosurgery would like patient to follow-up with Anesthesia Chronic Pain in outpatient setting. Appointment ordered (scheduled for 09/05/15 at 08:40am C25). -Greatly appreciate Serenity's recs from Chronic Pain service -Patient's niece and POCece Sanchez called Dr. Martines on 08/26/2015 to get an update on patient, expressed concern that patient is having difficulty ambulating and plan is for her to return home. Physical therapy consulted, felt patient safe to discharge home but recommended home PT. -I spoke with patient and sisters at bedside on 08/27/2015. Patient, sisters, and nursing expressed concern that patient was not safe to return home (even with home physical therapy) given severe pain and inability to ambulate on own. I share their concern. -I spoke with Guillaume Fernando in Social Work and he is going to meet with patient and provide her options for SNF placement. Acute renal failure (ARF) 08/24/20152014 Overview: Cr 1.48 in ED on admission, normalized after IV fluids, remains stable. Lumbosacral radiculitis 02/21/2015 12/07/19 18 Rotator cuff (capsule) sprain 08/06/2014 Cervicalgia 07/17/2013 05/11/2016 Pain in joint, shoulder region 07/17/2013 1 11/23/2013 Osteoarthritis of ankle or foot, right 1 12/07/2017 Diabetes mellitus type 2, controlled, without co mplications 05/24/2011 05/11/2016 Overview: PLAN: -Home glyburide, metformin, pioglitazone held -Insulin sliding scale 1 as needed Gait disturbance 05/20/2011 05/11/2016 Hyperlipidemia 02/19/2011 02/12/2014 Osteoarthrosis, unspecified whether generalized or localized, pelvic region and thigh 11/16/2010 09/15/2011 Degenerative arthritis of hip 10/31/2010 Overview: Severe left > right Pain in joint, pelvic region and thigh 0 09/15/2011 Thoracic or lumbosacral neuritis or radiculitis, unspecified 10/31/2010 09/15/2011 Lumbosacral spondylosis without myelopathy 10/3109/15/2011 Diabetes Mellitus Type II, Uncontrolled; 199912/01/2016 Vertigo of central origin 01/08/20102010 Peripheral vertigo, unspecified 01/08/2010 09/15/2011 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 Renal dysfunction 03/07/2017 documented as of this encounter (statuses as of 05/28/2022) [facility] History of Past illness Narrative* Problem Noted Date Resolved Date Unable to care for self 03/27/2022 03/29/20 22 Right arm pain 03/27/2022 03/29/2022 Right leg pain 03/27/2022 03/29/2022 Leukocytosis 03/27/2022 03/29/2022 Sepsis 03/24/2022 04/03/2022 Acute cystitis without hematuria 03/24/2022 03/26/2022 Hypomagnesemia 03/24/2022 03/26/2022 Hypokalemia 03/24/2022 03/26/2022 Elevated serum creatinine 03/24/20222021 Plantar fasciitis 05/25/2017 12/07/2017 CKD (chronic kidney disease) 05/11/2016 Type 2 diabetes mellitus without complication 03/07/2017 Sacroiliitis 10/28/2015 12/07/2017 Constipation 08/28/2015 05/11/2016 Unable to ambulate 08/27/2015 05/11/2016 Intractable low back pain 08/25/20152016 Overview: PLAN: -Tylenol 650 mg po scheduled q8h -Neurontin 200 mg po tid, will uptitrate per Pain's recs -Nucynta 50 mg po q4h PRN severe pain. -Medrol dosepak initiated on 08/27/2015 -scheduled Miralax and Colace to prevent narcotic-induced constipation -MARK Huizar in Neurosurgery spoke with Dr. Martines as to whether patient requires expedited morphine pump implantation while inpatient, but Dr. Martines prefers to allow Anesthesia Pain service to treat her pain while inpatient with plan for pump implantation as outpatient. Tentatively planning for pump implantation on October 01, 2015. Neurosurgery would like patient to follow-up with Anesthesia Chronic Pain in outpatient setting. Appointment ordered (scheduled for 09/05/15 at 08:40am C25). -Greatly appreciate Serenity's recs from Chronic Pain service -Patient's niece and POA Laura called Dr. Martines on 08/26/2015 to get an update on patient, expressed concern that patient is having difficulty ambulating and plan is for her to return home. Physical therapy consulted, felt patient safe to discharge home but recommended home PT. -I spoke with patient and sisters at bedside on 08/27/2015. Patient, sisters, and nursing expressed concern that patient was not safe to return home (even with home physical therapy) given severe pain and inability to ambulate on own. I share their concern. -I spoke with Guillaume Abdullahi in Social Work and he is going to meet with patient and provide her options for SNF placement. Acute renal failure (ARF) 08/24/20152014 Overview: Cr 1.48 in ED on admission, normalized after IV fluids, remains stable. Lumbosacral radiculitis 02/21/2015 12/07/19 Rotator cuff (capsule) sprain 08/06/2014 Cervicalgia 07/17/2013 05/11/2016 Pain in joint, shoulder region 07/17/2013 1 11/23/2013 Osteoarthritis of ankle or foot, right 1 12/07/2017 Diabetes mellitus type 2, controlled, without co mplications 05/24/2011 05/11/2016 Overview: PLAN: -Home glyburide, metformin, pioglitazone held -Insulin sliding scale 1 as needed Gait disturbance 05/20/2011 05/11/2016 Hyperlipidemia 02/19/2011 02/12/2014 Osteoarthrosis, unspecified whether generalized or localized, pelvic region and thigh 11/16/2010 09/15/2011 Degenerative arthritis of hip 10/31/2010 Overview: Severe left > right Pain in joint, pelvic region and thigh 0 09/15/2011 Thoracic or lumbosacral neuritis or radiculitis, unspecified 10/31/2010 09/15/2011 Lumbosacral spondylosis without myelopathy 10/3109/15/2011 Diabetes Mellitus Type II, Uncontrolled; 199912/01/2016 Vertigo of central origin 01/08/20102010 Peripheral vertigo, unspecified 01/08/2010 09/15/2011 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 Renal dysfunction 03/07/2017 documented as of this encounter (statuses as of 06/11/2022) [facility] History of Past illness Narrative* Problem Noted Date Resolved Date Unable to care for self 03/27/2022 03/29/20 Right arm pain 03/27/2022 03/29/2022 Right leg pain 03/27/2022 03/29/2022 Leukocytosis 03/27/2022 03/29/2022 Sepsis 03/24/2022 04/03/2022 Acute cystitis without hematuria 03/24/2022 03/26/2022 Hypomagnesemia 03/24/2022 03/26/2022 Hypokalemia 03/24/2022 03/26/2022 Elevated serum creatinine 03/24/20222021 Plantar fasciitis 05/25/2017 12/07/2017 CKD (chronic kidney disease) 05/11/2016 Type 2 diabetes mellitus without complication 03/07/2017 Sacroiliitis 10/28/2015 12/07/2017 Constipation 08/28/2015 05/11/2016 Unable to ambulate 08/27/2015 05/11/2016 Intractable low back pain 08/25/20152016 Overview: PLAN: -Tylenol 650 mg po scheduled q8h -Neurontin 200 mg po tid, will uptitrate per Pain's recs -Nucynta 50 mg po q4h PRN severe pain. -Medrol dosepak initiated on 08/27/2015 -scheduled Miralax and Colace to prevent narcotic-induced constipation -MARK Huizar in Neurosurgery spoke with Dr. Martines as to whether patient requires expedited morphine pump implantation while inpatient, but Dr. Martines prefers to allow Anesthesia Pain service to treat her pain while inpatient with plan for pump implantation as outpatient. Tentatively planning for pump implantation on October 01, 2015. Neurosurgery would like patient to follow-up with Anesthesia Chronic Pain in outpatient setting. Appointment ordered (scheduled for 09/05/15 at 08:40am C25). -Greatly appreciate Serenity's recs from Chronic Pain service -Patient's niece and MARK Sanchez called Dr. Martines on 08/26/2015 to get an update on patient, expressed concern that patient is having difficulty ambulating and plan is for her to return home. Physical therapy consulted, felt patient safe to discharge home but recommended home PT. -I spoke with patient and sisters at bedside on 08/27/2015. Patient, sisters, and nursing expressed concern that patient was not safe to return home (even with home physical therapy) given severe pain and inability to ambulate on own. I share their concern. -I spoke with Guillaume Fernando in Social Work and he is going to meet with patient and provide her options for SNF placement. Acute renal failure (ARF) 08/24/20152014 Overview: Cr 1.48 in ED on admission, normalized after IV fluids, remains stable. Lumbosacral radiculitis 02/21/2015 12/07/19 18 Rotator cuff (capsule) sprain 08/06/2014 Cervicalgia 07/17/2013 05/11/2016 Pain in joint, shoulder region 07/17/2013 1 11/23/2013 Osteoarthritis of ankle or foot, right 1 12/07/2017 Diabetes mellitus type 2, controlled, without co mplications 05/24/2011 05/11/2016 Overview: PLAN: -Home glyburide, metformin, pioglitazone held -Insulin sliding scale 1 as needed Gait disturbance 05/20/2011 05/11/2016 Hyperlipidemia 02/19/2011 02/12/2014 Osteoarthrosis, unspecified whether generalized or localized, pelvic region and thigh 11/16/2010 09/15/2011 Degenerative arthritis of hip 10/31/2010 Overview: Severe left > right Pain in joint, pelvic region and thigh 0 09/15/2011 Thoracic or lumbosacral neuritis or radiculitis, unspecified 10/31/2010 09/15/2011 Lumbosacral spondylosis without myelopathy 10/3109/15/2011 Diabetes Mellitus Type II, Uncontrolled; 199912/01/2016 Vertigo of central origin 01/08/20102010 Peripheral vertigo, unspecified 01/08/2010 09/15/2011 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 Renal dysfunction 03/07/2017 documented as of this encounter (statuses as of 08/18/2022) [facility] History of Past illness Narrative* Problem Noted Date Resolved Date Unable to care for self 03/27/2022 03/29/20 Right arm pain 03/27/2022 03/29/2022 Right leg pain 03/27/2022 03/29/2022 Leukocytosis 03/27/2022 03/29/2022 Sepsis 03/24/2022 04/03/2022 Acute cystitis without hematuria 03/24/2022 03/26/2022 Hypomagnesemia 03/24/2022 03/26/2022 Hypokalemia 03/24/2022 03/26/2022 Elevated serum creatinine 03/24/20222021 Plantar fasciitis 05/25/2017 12/07/2017 CKD (chronic kidney disease) 05/11/2016 Type 2 diabetes mellitus without complication 03/07/2017 Sacroiliitis 10/28/2015 12/07/2017 Constipation 08/28/2015 05/11/2016 Unable to ambulate 08/27/2015 05/11/2016 Intractable low back pain 08/25/20152016 Overview: PLAN: -Tylenol 650 mg po scheduled q8h -Neurontin 200 mg po tid, will uptitrate per Pain's recs -Nucynta 50 mg po q4h PRN severe pain. -Medrol dosepak initiated on 08/27/2015 -scheduled Miralax and Colace to prevent narcotic-induced constipation -MARK Huizar in Neurosurgery spoke with Dr. Martines as to whether patient requires expedited morphine pump implantation while inpatient, but Dr. Martines prefers to allow Anesthesia Pain service to treat her pain while inpatient with plan for pump implantation as outpatient. Tentatively planning for pump implantation on October 01, 2015. Neurosurgery would like patient to follow-up with Anesthesia Chronic Pain in outpatient setting. Appointment ordered (scheduled for 09/05/15 at 08:40am C25). -Greatly appreciate Serenity's recs from Chronic Pain service -Patient's niece and POA Laura called Dr. Martines on 08/26/2015 to get an update on patient, expressed concern that patient is having difficulty ambulating and plan is for her to return home. Physical therapy consulted, felt patient safe to discharge home but recommended home PT. -I spoke with patient and sisters at bedside on 08/27/2015. Patient, sisters, and nursing expressed concern that patient was not safe to return home (even with home physical therapy) given severe pain and inability to ambulate on own. I share their concern. -I spoke with Guillaume Fernando in Social Work and he is going to meet with patient and provide her options for SNF placement. Acute renal failure (ARF) 08/24/20152014 Overview: Cr 1.48 in ED on admission, normalized after IV fluids, remains stable. Lumbosacral radiculitis 02/21/2015 12/07/19 Rotator cuff (capsule) sprain 08/06/2014 Cervicalgia 07/17/2013 05/11/2016 Pain in joint, shoulder region 07/17/2013 1 11/23/2013 Osteoarthritis of ankle or foot, right 1 12/07/2017 Diabetes mellitus type 2, controlled, without co mplications 05/24/2011 05/11/2016 Overview: PLAN: -Home glyburide, metformin, pioglitazone held -Insulin sliding scale 1 as needed Gait disturbance 05/20/2011 05/11/2016 Hyperlipidemia 02/19/2011 02/12/2014 Osteoarthrosis, unspecified whether generalized or localized, pelvic region and thigh 11/16/2010 09/15/2011 Degenerative arthritis of hip 10/31/2010 Overview: Severe left > right Pain in joint, pelvic region and thigh 0 09/15/2011 Thoracic or lumbosacral neuritis or radiculitis, unspecified 10/31/2010 09/15/2011 Lumbosacral spondylosis without myelopathy 10/3109/15/2011 Diabetes Mellitus Type II, Uncontrolled; 199912/01/2016 Vertigo of central origin 01/08/20102010 Peripheral vertigo, unspecified 01/08/2010 09/15/2011 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 Renal dysfunction 03/07/2017 documented as of this encounter (statuses as of 09/30/2022) [facility] History of Past illness Narrative* Problem Noted Date Resolved Date Unable to care for self 03/27/2022 03/29/20 Right arm pain 03/27/2022 03/29/2022 Right leg pain 03/27/2022 03/29/2022 Leukocytosis 03/27/2022 03/29/2022 Sepsis 03/24/2022 04/03/2022 Acute cystitis without hematuria 03/24/2022 03/26/2022 Hypomagnesemia 03/24/2022 03/26/2022 Hypokalemia 03/24/2022 03/26/2022 Elevated serum creatinine 03/24/20222021 Plantar fasciitis 05/25/2017 12/07/2017 CKD (chronic kidney disease) 05/11/2016 Type 2 diabetes mellitus without complication 03/07/2017 Sacroiliitis 10/28/2015 12/07/2017 Constipation 08/28/2015 05/11/2016 Unable to ambulate 08/27/2015 05/11/2016 Intractable low back pain 08/25/20152016 Overview: PLAN: -Tylenol 650 mg po scheduled q8h -Neurontin 200 mg po tid, will uptitrate per Pain's recs -Nucynta 50 mg po q4h PRN severe pain. -Medrol dosepak initiated on 08/27/2015 -scheduled Miralax and Colace to prevent narcotic-induced constipation -MARK Huizar in Neurosurgery spoke with Dr. Martines as to whether patient requires expedited morphine pump implantation while inpatient, but Dr. Martines prefers to allow Anesthesia Pain service to treat her pain while inpatient with plan for pump implantation as outpatient. Tentatively planning for pump implantation on October 01, 2015. Neurosurgery would like patient to follow-up with Anesthesia Chronic Pain in outpatient setting. Appointment ordered (scheduled for 09/05/15 at 08:40am C25). -Greatly appreciate Serenity's recs from Chronic Pain service -Patient's niece and MARK Sanchez called Dr. Martines on 08/26/2015 to get an update on patient, expressed concern that patient is having difficulty ambulating and plan is for her to return home. Physical therapy consulted, felt patient safe to discharge home but recommended home PT. -I spoke with patient and sisters at bedside on 08/27/2015. Patient, sisters, and nursing expressed concern that patient was not safe to return home (even with home physical therapy) given severe pain and inability to ambulate on own. I share their concern. -I spoke with Guillaume Abdullahi in Social Work and he is going to meet with patient and provide her options for SNF placement. Acute renal failure (ARF) 08/24/20152014 Overview: Cr 1.48 in ED on admission, normalized after IV fluids, remains stable. Lumbosacral radiculitis 02/21/2015 12/07/19 18 Rotator cuff (capsule) sprain 08/06/2014 Cervicalgia 07/17/2013 05/11/2016 Pain in joint, shoulder region 07/17/2013 1 11/23/2013 Osteoarthritis of ankle or foot, right 1 12/07/2017 Diabetes mellitus type 2, controlled, without co mplications 05/24/2011 05/11/2016 Overview: PLAN: -Home glyburide, metformin, pioglitazone held -Insulin sliding scale 1 as needed Gait disturbance 05/20/2011 05/11/2016 Hyperlipidemia 02/19/2011 02/12/2014 Osteoarthrosis, unspecified whether generalized or localized, pelvic region and thigh 11/16/2010 09/15/2011 Degenerative arthritis of hip 10/31/2010 Overview: Severe left > right Pain in joint, pelvic region and thigh 0 09/15/2011 Thoracic or lumbosacral neuritis or radiculitis, unspecified 10/31/2010 09/15/2011 Lumbosacral spondylosis without myelopathy 10/3109/15/2011 Diabetes Mellitus Type II, Uncontrolled; 199912/01/2016 Vertigo of central origin 01/08/20102010 Peripheral vertigo, unspecified 01/08/2010 09/15/2011 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 Renal dysfunction 03/07/2017 documented as of this encounter (statuses as of 10/04/2022) [facility] History of Past illness Narrative* Problem Noted Date Resolved Date Unable to care for self 03/27/2022 03/29/20 Right arm pain 03/27/2022 03/29/2022 Right leg pain 03/27/2022 03/29/2022 Leukocytosis 03/27/2022 03/29/2022 Sepsis 03/24/2022 04/03/2022 Acute cystitis without hematuria 03/24/2022 03/26/2022 Electrolyte imbalance 03/24/2022 10/23/2022 Hypomagnesemia 03/24/2022 03/26/2022 Hypokalemia 03/24/2022 03/26/2022 Elevated serum creatinine 03/24/20222021 Plantar fasciitis 05/25/2017 12/07/2017 CKD (chronic kidney disease) 05/11/2016 Type 2 diabetes mellitus without complication 03/07/2017 Sacroiliitis 10/28/2015 12/07/2017 Constipation 08/28/2015 05/11/2016 Unable to ambulate 08/27/2015 05/11/2016 Intractable low back pain 08/25/20152016 Overview: PLAN: -Tylenol 650 mg po scheduled q8h -Neurontin 200 mg po tid, will uptitrate per Pain's recs -Nucynta 50 mg po q4h PRN severe pain. -Medrol dosepak initiated on 08/27/2015 -scheduled Miralax and Colace to prevent narcotic-induced constipation -MARK Huizar in Neurosurgery spoke with Dr. Martines as to whether patient requires expedited morphine pump implantation while inpatient, but Dr. Martines prefers to allow Anesthesia Pain service to treat her pain while inpatient with plan for pump implantation as outpatient. Tentatively planning for pump implantation on October 01, 2015. Neurosurgery would like patient to follow-up with Anesthesia Chronic Pain in outpatient setting. Appointment ordered (scheduled for 09/05/15 at 08:40am C25). -Greatly appreciate Serenity's recs from Chronic Pain service -Patient's niece and POA Laura called Dr. Martines on 08/26/2015 to get an update on patient, expressed concern that patient is having difficulty ambulating and plan is for her to return home. Physical therapy consulted, felt patient safe to discharge home but recommended home PT. -I spoke with patient and sisters at bedside on 08/27/2015. Patient, sisters, and nursing expressed concern that patient was not safe to return home (even with home physical therapy) given severe pain and inability to ambulate on own. I share their concern. -I spoke with Guillaume Fernando in Social Work and he is going to meet with patient and provide her options for SNF placement. Acute renal failure (ARF) 08/24/20152014 Overview: Cr 1.48 in ED on admission, normalized after IV fluids, remains stable. Lumbosacral radiculitis 02/21/2015 12/07/19 18 Rotator cuff (capsule) sprain 08/06/2014 Cervicalgia 07/17/2013 05/11/2016 Pain in joint, shoulder region 07/17/2013 1 11/23/2013 Osteoarthritis of ankle or foot, right 1 12/07/2017 Diabetes mellitus type 2, controlled, without co mplications 05/24/2011 05/11/2016 Overview: PLAN: -Home glyburide, metformin, pioglitazone held -Insulin sliding scale 1 as needed Gait disturbance 05/20/2011 05/11/2016 Hyperlipidemia 02/19/2011 02/12/2014 Osteoarthrosis, unspecified whether generalized or localized, pelvic region and thigh 11/16/2010 09/15/2011 Degenerative arthritis of hip 10/31/2010 Overview: Severe left > right Pain in joint, pelvic region and thigh 0 09/15/2011 Thoracic or lumbosacral neuritis or radiculitis, unspecified 10/31/2010 09/15/2011 Lumbosacral spondylosis without myelopathy 10/3109/15/2011 Diabetes Mellitus Type II, Uncontrolled; 199912/01/2016 Vertigo of central origin 01/08/20102010 Peripheral vertigo, unspecified 01/08/2010 09/15/2011 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 Renal dysfunction 03/07/2017 documented as of this encounter (statuses as of 11/15/2022) [facility] History of Past illness Narrative* Problem Noted Date Resolved Date Unable to care for self 03/27/2022 03/29/20 Right arm pain 03/27/2022 03/29/2022 Right leg pain 03/27/2022 03/29/2022 Leukocytosis 03/27/2022 03/29/2022 Sepsis 03/24/2022 04/03/2022 Acute cystitis without hematuria 03/24/2022 03/26/2022 Electrolyte imbalance 03/24/2022 10/23/2022 Hypomagnesemia 03/24/2022 03/26/2022 Hypokalemia 03/24/2022 03/26/2022 Elevated serum creatinine 03/24/20222021 Plantar fasciitis 05/25/2017 12/07/2017 CKD (chronic kidney disease) 05/11/2016 Type 2 diabetes mellitus without complication 03/07/2017 Sacroiliitis 10/28/2015 12/07/2017 Constipation 08/28/2015 05/11/2016 Unable to ambulate 08/27/2015 05/11/2016 Intractable low back pain 08/25/20152016 Overview: PLAN: -Tylenol 650 mg po scheduled q8h -Neurontin 200 mg po tid, will uptitrate per Pain's recs -Nucynta 50 mg po q4h PRN severe pain. -Medrol dosepak initiated on 08/27/2015 -scheduled Miralax and Colace to prevent narcotic-induced constipation -MARK Huizar in Neurosurgery spoke with Dr. Martines as to whether patient requires expedited morphine pump implantation while inpatient, but Dr. Martines prefers to allow Anesthesia Pain service to treat her pain while inpatient with plan for pump implantation as outpatient. Tentatively planning for pump implantation on October 01, 2015. Neurosurgery would like patient to follow-up with Anesthesia Chronic Pain in outpatient setting. Appointment ordered (scheduled for 09/05/15 at 08:40am C25). -Greatly appreciate Serenity's recs from Chronic Pain service -Patient's niece and POA Laura called Dr. Martines on 08/26/2015 to get an update on patient, expressed concern that patient is having difficulty ambulating and plan is for her to return home. Physical therapy consulted, felt patient safe to discharge home but recommended home PT. -I spoke with patient and sisters at bedside on 08/27/2015. Patient, sisters, and nursing expressed concern that patient was not safe to return home (even with home physical therapy) given severe pain and inability to ambulate on own. I share their concern. -I spoke with Guillaume Janecece in Social Work and he is going to meet with patient and provide her options for SNF placement. Acute renal failure (ARF) 08/24/20152014 Overview: Cr 1.48 in ED on admission, normalized after IV fluids, remains stable. Lumbosacral radiculitis 02/21/2015 12/07/19 Rotator cuff (capsule) sprain 08/06/2014 Cervicalgia 07/17/2013 05/11/2016 Pain in joint, shoulder region 07/17/2013 1 11/23/2013 Osteoarthritis of ankle or foot, right 1 12/07/2017 Diabetes mellitus type 2, controlled, without co mplications 05/24/2011 05/11/2016 Overview: PLAN: -Home glyburide, metformin, pioglitazone held -Insulin sliding scale 1 as needed Gait disturbance 05/20/2011 05/11/2016 Hyperlipidemia 02/19/2011 02/12/2014 Osteoarthrosis, unspecified whether generalized or localized, pelvic region and thigh 11/16/2010 09/15/2011 Degenerative arthritis of hip 10/31/2010 Overview: Severe left > right Pain in joint, pelvic region and thigh 0 09/15/2011 Thoracic or lumbosacral neuritis or radiculitis, unspecified 10/31/2010 09/15/2011 Lumbosacral spondylosis without myelopathy 10/3109/15/2011 Diabetes Mellitus Type II, Uncontrolled; 199912/01/2016 Vertigo of central origin 01/08/20102010 Peripheral vertigo, unspecified 01/08/2010 09/15/2011 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 Renal dysfunction 03/07/2017 documented as of this encounter (statuses as of 12/28/2022) [facility] History of Past illness Narrative* Problem Noted Date Resolved Date Unable to care for self 03/27/2022 03/29/20 Right arm pain 03/27/2022 03/29/2022 Right leg pain 03/27/2022 03/29/2022 Leukocytosis 03/27/2022 03/29/2022 Sepsis 03/24/2022 04/03/2022 Acute cystitis without hematuria 03/24/2022 03/26/2022 Electrolyte imbalance 03/24/2022 10/23/2022 Hypomagnesemia 03/24/2022 03/26/2022 Hypokalemia 03/24/2022 03/26/2022 Elevated serum creatinine 03/24/20222021 Plantar fasciitis 05/25/2017 12/07/2017 CKD (chronic kidney disease) 05/11/2016 Type 2 diabetes mellitus without complication 03/07/2017 Sacroiliitis 10/28/2015 12/07/2017 Constipation 08/28/2015 05/11/2016 Unable to ambulate 08/27/2015 05/11/2016 Intractable low back pain 08/25/20152016 Overview: PLAN: -Tylenol 650 mg po scheduled q8h -Neurontin 200 mg po tid, will uptitrate per Pain's recs -Nucynta 50 mg po q4h PRN severe pain. -Medrol dosepak initiated on 08/27/2015 -scheduled Miralax and Colace to prevent narcotic-induced constipation -MARK Huizar in Neurosurgery spoke with Dr. Martines as to whether patient requires expedited morphine pump implantation while inpatient, but Dr. Martines prefers to allow Anesthesia Pain service to treat her pain while inpatient with plan for pump implantation as outpatient. Tentatively planning for pump implantation on October 01, 2015. Neurosurgery would like patient to follow-up with Anesthesia Chronic Pain in outpatient setting. Appointment ordered (scheduled for 09/05/15 at 08:40am C25). -Greatly appreciate Serenity's recs from Chronic Pain service -Patient's niece and MARK Sanchez called Dr. Martines on 08/26/2015 to get an update on patient, expressed concern that patient is having difficulty ambulating and plan is for her to return home. Physical therapy consulted, felt patient safe to discharge home but recommended home PT. -I spoke with patient and sisters at bedside on 08/27/2015. Patient, sisters, and nursing expressed concern that patient was not safe to return home (even with home physical therapy) given severe pain and inability to ambulate on own. I share their concern. -I spoke with Guillaume Fernando in Social Work and he is going to meet with patient and provide her options for SNF placement. Acute renal failure (ARF) 08/24/20152014 Overview: Cr 1.48 in ED on admission, normalized after IV fluids, remains stable. Lumbosacral radiculitis 02/21/2015 12/07/19 18 Rotator cuff (capsule) sprain 08/06/2014 Cervicalgia 07/17/2013 05/11/2016 Pain in joint, shoulder region 07/17/2013 1 11/23/2013 Osteoarthritis of ankle or foot, right 1 12/07/2017 Diabetes mellitus type 2, controlled, without co mplications 05/24/2011 05/11/2016 Overview: PLAN: -Home glyburide, metformin, pioglitazone held -Insulin sliding scale 1 as needed Gait disturbance 05/20/2011 05/11/2016 Hyperlipidemia 02/19/2011 02/12/2014 Osteoarthrosis, unspecified whether generalized or localized, pelvic region and thigh 11/16/2010 09/15/2011 Degenerative arthritis of hip 10/31/2010 Overview: Severe left > right Pain in joint, pelvic region and thigh 0 09/15/2011 Thoracic or lumbosacral neuritis or radiculitis, unspecified 10/31/2010 09/15/2011 Lumbosacral spondylosis without myelopathy 10/3109/15/2011 Diabetes Mellitus Type II, Uncontrolled; 199912/01/2016 Vertigo of central origin 01/08/20102010 Peripheral vertigo, unspecified 01/08/2010 09/15/2011 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 Renal dysfunction 03/07/2017 documented as of this encounter (statuses as of 01/20/2023) [facility] History of Past illness Narrative* Problem Noted Date Resolved Date Unable to care for self 03/27/2022 03/29/20 Right arm pain 03/27/2022 03/29/2022 Right leg pain 03/27/2022 03/29/2022 Leukocytosis 03/27/2022 03/29/2022 Sepsis 03/24/2022 04/03/2022 Acute cystitis without hematuria 03/24/2022 03/26/2022 Electrolyte imbalance 03/24/2022 10/23/2022 Hypomagnesemia 03/24/2022 03/26/2022 Hypokalemia 03/24/2022 03/26/2022 Elevated serum creatinine 03/24/20222021 Plantar fasciitis 05/25/2017 12/07/2017 CKD (chronic kidney disease) 05/11/2016 Type 2 diabetes mellitus without complication 03/07/2017 Sacroiliitis 10/28/2015 12/07/2017 Constipation 08/28/2015 05/11/2016 Unable to ambulate 08/27/2015 05/11/2016 Intractable low back pain 08/25/20152016 Overview: PLAN: -Tylenol 650 mg po scheduled q8h -Neurontin 200 mg po tid, will uptitrate per Pain's recs -Nucynta 50 mg po q4h PRN severe pain. -Medrol dosepak initiated on 08/27/2015 -scheduled Miralax and Colace to prevent narcotic-induced constipation -MARK Huizar in Neurosurgery spoke with Dr. Martines as to whether patient requires expedited morphine pump implantation while inpatient, but Dr. Martines prefers to allow Anesthesia Pain service to treat her pain while inpatient with plan for pump implantation as outpatient. Tentatively planning for pump implantation on October 01, 2015. Neurosurgery would like patient to follow-up with Anesthesia Chronic Pain in outpatient setting. Appointment ordered (scheduled for 09/05/15 at 08:40am C25). -Greatly appreciate Serenity's recs from Chronic Pain service -Patient's niece and POA Laura called Dr. Martines on 08/26/2015 to get an update on patient, expressed concern that patient is having difficulty ambulating and plan is for her to return home. Physical therapy consulted, felt patient safe to discharge home but recommended home PT. -I spoke with patient and sisters at bedside on 08/27/2015. Patient, sisters, and nursing expressed concern that patient was not safe to return home (even with home physical therapy) given severe pain and inability to ambulate on own. I share their concern. -I spoke with Guillaume Abdullahi in Social Work and he is going to meet with patient and provide her options for SNF placement. Acute renal failure (ARF) 08/24/20152014 Overview: Cr 1.48 in ED on admission, normalized after IV fluids, remains stable. Lumbosacral radiculitis 02/21/2015 12/07/19 Rotator cuff (capsule) sprain 08/06/2014 Cervicalgia 07/17/2013 05/11/2016 Pain in joint, shoulder region 07/17/2013 1 11/23/2013 Osteoarthritis of ankle or foot, right 1 12/07/2017 Diabetes mellitus type 2, controlled, without co mplications 05/24/2011 05/11/2016 Overview: PLAN: -Home glyburide, metformin, pioglitazone held -Insulin sliding scale 1 as needed Gait disturbance 05/20/2011 05/11/2016 Hyperlipidemia 02/19/2011 02/12/2014 Osteoarthrosis, unspecified whether generalized or localized, pelvic region and thigh 11/16/2010 09/15/2011 Degenerative arthritis of hip 10/31/2010 Overview: Severe left > right Pain in joint, pelvic region and thigh 0 09/15/2011 Thoracic or lumbosacral neuritis or radiculitis, unspecified 10/31/2010 09/15/2011 Lumbosacral spondylosis without myelopathy 10/3109/15/2011 Diabetes Mellitus Type II, Uncontrolled; 199912/01/2016 Vertigo of central origin 01/08/20102010 Peripheral vertigo, unspecified 01/08/2010 09/15/2011 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 Renal dysfunction 03/07/2017 documented as of this encounter (statuses as of 02/22/2023) [facility] Miscellaneous Notes* Telephone Encounter - Willie Kaur APRN.DRAKE - 03/25/2022 11:55 AM EDT The following approved medication requests have been transmitted electronically. Signed Prescriptions Disp Refills glipiZIDE (GLUCOTROL XL) 2.5 mg 24 hr tablet 30 tablet 1 Sig: Take 1 tablet by mouth once daily. (local supply while waiting for mail order) Authorizing Provider: WILLIE KAUR APRN.DRAKE * Telephone Encounter - Aditi Perez - 03/23/2022 10:20 AM EDT [facility] is processing the script Tuesday and patient will be out of meds for about 2 weeks. Brother is calling to have a local pharmacy handle the discrepancy. * Telephone Encounter - Aditi Perez - 03/23/2022 10:18 AM EDT Pharmacy verified in Epic Patient has been identified by name and date of : Yes Patient aware RX will be sent to pharmacy. No need to notify patient. Brother phones for refill(s): Pending Prescriptions Disp Refills GLIPIZIDE ER 2.5 MG TABLET, EXTENDED RELEASE 24 HR 30 tablet 0 Sig: Take 1 tablet by mouth once daily. TEMPORARY REFILL WHILE WAITING FOR MAIL ORDER DANIEL: No Date of last office visit : Visit date not found Date of next office visit : Visit date not found Last 2 Encounter Wt Readings: Date: Wt: 10/15/2021 59.1 kg (130 lb 6.4 oz) 03/19/2021 61.8 kg (136 lb 3.2 oz) Please advise. Aditi Novoa Pss documented in this encounterMer[facility]05-[facility]-2022 Miscellaneous Notes* Telephone Encounter - Willie Kaur APRN.CNP - 03/22/2022 10:16 AM EDT NOV 04/29/22 The following approved medication requests have been transmitted electronically. Signed Prescriptions Disp Refills lisinopril-hydroCHLOROthiazide (PRINZIDE, ZESTORETIC) 20-25 mg per tablet 90 tablet 3 Sig: TAKE 1 TABLET BY MOUTH ONCE DAILY DANIEL: No Authorizing Provider: WILLIE KAUR amLODIPine (NORVASC) 5 mg tablet 90 tablet 3 Sig: TAKE 1 TABLET BY MOUTH ONCE DAILY DANIEL: No Authorizing Provider: WILLIE KAUR APRN.CNP * Telephone Encounter - Sangita Herring - 03/22/2022 9:49 AM EDT Patient has been identified by name and date of : Yes Last office visit in this department: 10/15/2021 RX INSTRUCTIONS: Patient aware RX will be sent to pharmacy. No need to notify patient. Patient phones requesting refills as follows: Pending Prescriptions Disp Refills LISINOPRIL 20 MG-HYDROCHLOROTHIAZIDE 25 MG TABLET 90 tablet 3 Sig: TAKE 1 TABLET BY MOUTH ONCE DAILY DANIEL: Yes AMLODIPINE 5 MG TABLET 90 tablet 3 Sig: TAKE 1 TABLET BY MOUTH ONCE DAILY DANIEL: Yes Please review and advise. Sangita Herring documented in this encounterMer[facility]04-15-2022 Miscellaneous Notes* Telephone Encounter - Agustina Hernandez - 02/26/2022 11:28 AM EDT Patients caregiver has been notified * Telephone Encounter - Willie Kaur APRN.CNP - 02/26/2022 11:20 AM EDT I sent M[facility]ill [facility]. Please notify caregiver. The following approved medication requests have been transmitted electronically. Signed Prescriptions Disp Refills meloxicam (MOBIC) 15 mg tablet 90 tablet 3 Sig: Take 1 tablet by mouth once daily. As needed for pain DANIEL: No Authorizing Provider: WILLIE KAUR APRN.DRAKE * Telephone Encounter - Tyesha Perez - 02/25/2022 3:33 PM EDT Patient's caregiver, Mercedes, stated she tried to refill patient's meloxicam, but [facility] told her itwas discontinued. Epic shows as discontinued. Please review and advise at [phone]. documented in this encounterMercy Hospital02-22-2022 Miscellaneous Notes* Telephone Encounter - Lucinda Tapia LPN - 01/05/2022 11:58 AM EST Call placed to patient and her son states they are out of state and they will call back in if the patient needs something but as far as they know she did not need refills at this time. * Telephone Encounter - Lucinda Tapia LPN - 12/25/2021 2:40 PM EST Patient has been identified by name and date of : Yes Last office visit in this department: 10/15/2021 Call placed to patient because she was supposed to have a mail order 90 day supply coming and the temporary order was for 30 days until it came. Did she not received her mail order medications? Can she call them to have them send it. Please clarify with patient when she returns call. Pending Prescriptions Disp Refills GLIPIZIDE ER 2.5 MG TABLET, EXTENDED RELEASE 24 HR 30 tablet 0 Sig: Take 1 tablet by mouth once daily. TEMPORARY REFILL WHILE WAITING FOR MAIL ORDER DANIEL: No MELOXICAM 15 MG TABLET 90 tablet 3 Sig: Take 1 tablet by mouth once daily. DANIEL: No Please review and advise. Lucinda Tapia LPN * Telephone Encounter - Daniel Holder - 12/25/2021 10:35 AM EST Patient has been identified by name and date of : Yes Pending Prescriptions Disp Refills GLIPIZIDE ER 2.5 MG TABLET, EXTENDED RELEASE 24 HR 30 tablet 0 Sig: Take 1 tablet by mouth once daily. TEMPORARY REFILL WHILE WAITING FOR MAIL ORDER DANIEL: No MELOXICAM 15 MG TABLET 90 tablet 3 Sig: Take 1 tablet by mouth once daily. DANIEL: No Patient needs to have a 30 day supply sent to the [facility] the [facility]ide RX INSTRUCTIONS: Patient requesting a call when RX is approved and sent to the pharmacy. Please call patient's inserting machine operator at [phone] Daniel Holder documented in this encounterMercy Hospital01-24-2022 NoteHome care referral received for patient. Attempted to reach via telephone, however no answer. Voicemail left for return call. [facility]01-21-2022 [facility] CONSULTATION YUSUF MEDINA CCE [id number] ICU NIGHAT PENNY MD [id number] REFERRING PHYSICIAN: CONSULTING PHYSICIAN: Gertrudis Beckford DO DATE OF CONSULTATION: 12/04/2021 CHIEF COMPLAINT: Status post fall. HISTORY OF PRESENT ILLNESS: This 85-year-old American woman was taking care of her 16 chickens when she apparently fell en route to the chicken coop. She was found outside in the snow. She was brought in, dried and cold. She had a temperature of 34, heart rate was 37. She was mildly acidotic pH 7.19, pCO2 of 41, pO2 64.6, bicarb was 15. Her sodium is 138, potassium 5.5, albumin is 3.2. Her white count was 22,000, hematocrit 31.2. Patient was rewarmed in the emergency room and then admitted to the ICU in this process. The patient had CT scan of the brain that showed no acute changes. Chest x-ray was negative as well. Cervical spine series was negative. CT scan of the chest was clear as well as abdominal and pelvic tran scans were clear. Again, patient's rectal temp was 26. She was hypotensive and bradycardic on presentation. She was treated with warming fluids, a warming blanket. Temperature improved and hypotension and bradycardia resolved. All x- rays showed no apparent fracture. Her son is at bedside. MEDICATIONS: Medications at home include: Actos, Mobic, Norvasc, Pravachol, Prevacid, Zestoretic, glipizide, Glucophage. PAST MEDICAL HISTORY: Positive for hypertension, degenerative arthritis, hyperlipidemia, gastroesophageal reflux, type 2 diabetes. SOCIAL HISTORY: Patient immigrated from [facility] with her by way of 10 years ago and has supportive children. REVIEW OF SYSTEMS: No change in vision, decrease in hearing, difficulty swallowing, unusual hoarseness. No productive cough or purulent sputum. No abdominal pains, nausea, vomiting. No paralysis or paresthesias. PHYSICAL EXAM: General: Pleasant female. Head: Normocephalic. Neck: Supple. PERRLA. EOMI. No JVD. No carotid bruits. No cervical or supraclavicular nodes. Heart: Rate and rhythm are regular without gallops. Lungs: Clear. Abdomen: Soft, nontender. No peritoneal signs. Extremities: No cyanosis or clubbing. No signs of palpable DVT. Neuro: Appropriate. Vital Signs: Temperature , pulse 77, respirations are 26, BP 124/44, pulse ox 94% on room air. LABORATORY: Patient's sodium 137, potassium 4.3, chloride 106, bicarb 22.7, BUN 42, creatinine 1.3, glucose 166. BNP this a.m. was 2217, at 2141 it was 926. Delta troponin was positive. White count is 13.8, hematocrit is 30, platelets 294 this a.m. AB.36, pCO2 35, pO2 82, 19 bicarb, 94% saturations on 4 L. Urine: Glucose 150, large blood. 12-lead EKG last evening showed 37 rate, sinus bradycardia. There is an old septal infarct. Chest x-ray showed no acute changes. ASSESSMENT: 1. 85-year-old female status post fall with hypothermia and without otherwise injury. 2. Mild rhabdomyolysis associated with her fall. 3. Mild anemia. PLAN: Repeat labs. Patient has been ambulating here division. Appears stable in her gait. CRITICAL CARE TIME: 40 minutes. Addendum: Patient's repeat CPK was approximately 3600 and recommended IV hydration and patient stayovernight with repeat labs in AM. Patient refuses this will be staying with her son. She agrees to drink 8 ounces of liquid every 3-4 hours and have labs CPK BMP reassessed in 24 hours or on Tuesday. Patient's fluid resuscitation should be for at least 24 hours. They are aware of her anemia as well both the patient and her son. ICU STAFF PHYSICIAN NOTE OF PERSONAL INVOLVEMENT IN CARE As the attending physician/consulting physician, I certify that I personally reviewed the patient'shistory and personally examined the patient to confirm the physical findings described above, and that I reviewed the relevant imaging studies and available reports. I also discussed the differentialdiagnosis and all of the proposed management plans with the patient and individuals accompanying the patient to this visit. They had the opportunity to ask questions about the proposed management plans and to have those questions answered. This patient has a high probability of sudden, clinically significant deterioration, which requiresthe highest level of physician preparedness to intervene urgently. I managed/supervised life or organ supporting interventions that required frequent physician assessment. I devoted my full attentionto the direct care of this patient for the amount of time indicated below. Time I spent with familyor surrogate(s) is included only if the patient was incapable of providing the necessary information or participating in medical decision-making. Time devoted to teaching and to any procedures I billed separately is not included. Critical Care Time: 35 minutes Gertrudis DO Michael GERTRUDIS BECKFORD GH/MedQ Job #: (more content not included)...[facility]01-21-2022 Note Patient: YUSUF MEDINA Age: 85 years Sex: Female : 1935 Associated Diagnoses: None Author: NISHI HODGE, IDA Primary care physician: Dr. Cramer Chief Complaint: Ms. Medina is unable to offer a chief complaint HPI: Ms. Medina is an 85 year old lady brought in by EMS following a fall. She is quite confused. In addition, there is a language barrier. As a result, history is quite limited. She lives alone. Per the report, she had gone to the [employer] to cook pickled meat eggs. She had fallen. It is unknown why she fell or how long she was on the ground for. Family had been trying to reach her without any success. On presentation to the emergency room, her temperature was 26 (rectal). HR was 30. RR was 20. BP was 42/14. Pulse ox was 83 % on NRB. K was 5.2. Na was 134.Cr was 1.6. WBC was 22.6. CPK is 926. Troponin is elevated. Hypothermia is improved. Bradycardia is resolved. She remains quite confused. Herbaseline is unknown. She is being admitted for further management. Past Medical History: per the records: - HTN - DM II - HLP Past Surgical History: unable to obtain Social History: unable to obtain Family History: unable to obtain Allergies (1) Active Reaction No Known Allergies None Documented Home Medications (8) Active Actos 45 mg oral tablet 45 mg = 1 tabs, ORAL, DAILY glipiZIDE 2.5 mg oral tablet, extended release 2.5 mg = 1 tabs, ORAL, DAILY metFORMIN 500 mg oral tablet 500 mg = 1 tabs, ORAL, BID Mobic 15 mg oral tablet 15 mg = 1 tabs, ORAL, DAILY Norvasc 5 mg oral tablet 5 mg = 1 tabs, ORAL, DAILY Pravachol 20 mg oral tablet 20 mg = 1 tabs, ORAL, QHS Prevacid 30 mg oral delayed release capsule 30 mg = 1 cap(s), ORAL, DAILY Zestoretic 20 mg-25 mg oral tablet 1 tabs, ORAL, DAILY Review of Systems: unable to obtain Physical Exam: Vital Signs (last 24 hrs) Last Charted Temp Rectal L 35.5degC (DEC 04) Heart Rate Peripheral H 106bpm (DEC 04) Resp Rate 18 br/min (DEC 04) SBP 126 mmHg (DEC 04) DBP L 48mmHg (DEC 04) General: alert, no acute distress, lying in bed. HENT: normocephalic, atraumatic, pupils equal round and reactive to light. Extraocular movements are intact. Neck: supple, non-tender, no carotid bruit. Heart: regular rate and rhythm. No murmurs, rubs or gallops, normal S1 & S2. Lungs: clear to auscultation bilaterally, no wheezing or rhonchi. Abdomen: soft, nontender, normal bowel sounds. Extremities: no cyanosis clubbing or edema. Neuro: awake, alert, withdraws all extremities to noxious stimuli. However, she appears unable to lift her feet. Skin: bruises in elbow and left thigh. Labs (Last four charted values) WBC H 22.6 (DEC 03) Hgb L 10.1 (DEC 03) Hct L 31.2 (DEC 03) Plt 347 (DEC 03) Na 138 (DEC 03) K H 5.5 (DEC 03) CO2 L 18.9 (DEC 03) Cl 105 (DEC 03) Cr H 1.6 (DEC 03) BUN H 45 (DEC 03) Glucose Random H 270 (DEC 03) Mg 1.6 (DEC 03) Ca 8.9 (DEC 03) INR 1.0 (DEC 03) Total CK H 926 (DEC 03) XR CHEST 1 VIEW: No evidence of acute disease XR PELVIS 1-2 VIEWS: No acute fracture or dislocation. If clinically indicated, consider follow-up CT or MR for more sensitive evaluation CT CERVICAL SPINE WO CONTRAST: No acute fracture, compression deformity or traumatic malalignment. If symptoms persist or further imaging is clinically indicated, consider follow-up MRI CT CHEST WO CONTRST: No acute finding CT HEAD WITHOUT IV CONTRAST: 1. No acute intracranial process is identified. 2. Nonspecific low attenuation in the white matter bilaterally. This is most commonly related to age-indeterminate small vessel ischemic disease, 3. If symptoms persist or further imaging is clinically indicated, consider follow-up MRI or repeatCT imaging CT ABDOMEN PELVIS WITHOUT IV CONTRAST: No evidence of acute traumatic injury in the abdomen or pelvis. Limited without contrast. XR ELBOW RIGHT COMPLETE: No acute fracture or dislocation. Assessment and Plan: Shock, unspecified: cardiogenic shock versus hypovolemic shock versus septic shock. She was severely bradycardic. WBC is elevated and she was hypothermic. Septic shock is a consideration. However, there is no localizing source of infection. Hypothermia is likely due to being outside. The temperature has been in the high teens. Leukocytosis is likely a stress response. Hypovolemic shock is also a possibility. She does have MARCELLA. It is uncertain how long she was down for. - Admit to ICU. - Continue IVF and rewarming measures. - Trend temperature and WBC. - Obtain critical care medicine consult. Encephalopathy, unspecified: she remains quite confused. She was living alone. She was found down. It is uncertain why she fell. ?CVA leading to weakness and fall. She appears to have trouble liftingher feet. CT head is negative for any acute process. There is also a language barrier. - MRI head. - Neurology consult. Abnormal levels of other ser (more content not included)...[facility]01-20-2022 NotePatient: YUSUF MEDINA Age: 85 years Sex: Female : 1935 Associated Diagnoses: None Author: DAKOTAH HODGE, JESÚS MYERS Basic Information Time seen: Date & time 12/03/2021 20:04:00. History source: EMS. Arrival mode: Ambulance. History limitation: Clinical condition. History of Present Illness The patient presents following Patient found down, outside after unknown amount of time. No other history known.. The onset was unknown. The occurrence was unknown. The location where the incident occurred was in the street. Review of Systems unknown Health Status Allergies: Allergic Reactions (Selected) No Known Allergies. Medications: (Selected) Inpatient Medications Ordered 0.9%NaCl (Normal Saline) 1,000 mL: 100 mL/hr, IV Normal Saline Bolus (0.9%NaCl): 1,000 ML, 999 mL/hr, Fluid Bolus IVPB, ONCE Documented Medications Documented Prevacid 30 mg oral delayed release capsule: 30 mg, 1 cap(s), ORAL, DAILY glyBURIDE 5 mg oral tablet: 10 mg, 2 tab(s), ORAL, BID, 30 tab(s) lisinopril 20 mg oral tablet: 20 mg, 1 tab(s), ORAL, DAILY metformin 1000 mg oral tablet: 1,000 mg, 1 tab(s), ORAL, BID, 180 tab(s) pioglitazone 30 mg oral tablet: 30 mg, 1 tab(s), ORAL, DAILY pravastatin 20 mg oral tablet: 20 mg, 1 tab(s), ORAL, QHS. Past Medical/ Family/ Social History Medical history: HTN, DM. Surgical history: Unknown. Family history: Unknown. Social history: Unknown. Physical Examination General: she appears post-ictal, eyes open, not speaking. Vital Signs 114 systolic per EMS. Head: Normocephalic. Neck: we placed her in c-collar. Eye: Pupils are equal, round and reactive to light. Cardiovascular: HR was in the 30's received atropine. Respiratory: Lungs are clear to auscultation, respirations are non-labored, breath sounds are equal. Gastrointestinal: Soft, Nontender. Musculoskeletal: she appears to move all extremities. Neurological no speech. Procedure FAST: done by nm- no intraperitoneal fluid seen Impression and Plan found down, unknown mechanism, hypothermia Plan: warm, CT eval [facility]08-31-2021 History of Present illness Narrative* Giovanny Salmon, RT(R) - 07/14/2021 8:45 AM EDT Radiology Service Progress Note PATIENT NAME: Yusuf Medina DATE OF SERVICE: July 14, 2021 TIME: 9:01 AM PATIENT IDENTITY VERIFICATION COMPLETED USING TWO (2) IDENTIFIERS: Name and Date of confirmedby patient verbally. FALL SCREENING: Has the patient had 2 falls in the last year or 1 fall with injury or currently using an Ambulatory Assistive Device (Walker, Cane, Wheelchair, Crutches, etc.)? Yes, Patient High Riskfor Falls What interventions were put in place to prevent falls during this visit? Increased Observations by Caregivers PATIENT GENDER DATA: Female. status: : No status: NO. PATIENT RELEVANT IMPLANT DATA REVIEWED: Not Applicable RADIOLOGY DEPARTMENT: General X-ray: Exam(s) Completed: Upper Extremity X- Ray(s): Shoulder, AP / TRUE AP / AXILLARY left PERIPHERAL IV DATA: Not applicable SIGNED BY: RT Judith(R) July 14, 2021 9:01 AM documented in this encounterMercy Hospital07-12-2017 History of Past illness Narrative* Problem Noted Date Resolved Date Plantar fasciitis 05/25/2017 12/07/2017 CKD (chronic kidney disease) 05/11/2016 Type 2 diabetes mellitus without complication 03/07/2017 Sacroiliitis 10/28/2015 12/07/2017 Constipation 08/28/2015 05/11/2016 Unable to ambulate 08/27/2015 05/11/2016 Intractable low back pain 08/25/20152016 Overview: PLAN: -Tylenol 650 mg po scheduled q8h -Neurontin 200 mg po tid, will uptitrate per Pain's recs -Nucynta 50 mg po q4h PRN severe pain. -Medrol dosepak initiated on 08/27/2015 -scheduled Miralax and Colace to prevent narcotic-induced constipation -MARK Huizar in Neurosurgery spoke with Dr. Martines as to whether patient requires expedited morphine pump implantation while inpatient, but Dr. Martines prefers to allow Anesthesia Pain service to treat her pain while inpatient with plan for pump implantation as outpatient. Tentatively planning for pump implantation on October 01, 2015. Neurosurgery would like patient to follow-up with Anesthesia Chronic Pain in outpatient setting. Appointment ordered (scheduled for 09/05/15 at 08:40am C25). -Greatly appreciate Serenity's recs from Chronic Pain service -Patient's niece and MARK Sanchez called Dr. Martines on 08/26/2015 to get an update on patient, expressed concern that patient is having difficulty ambulating and plan is for her to return home. Physical therapy consulted, felt patient safe to discharge home but recommended home PT. -I spoke with patient and sisters at bedside on 08/27/2015. Patient, sisters, and nursing expressed concern that patient was not safe to return home (even with home physical therapy) given severe pain and inability to ambulate on own. I share their concern. -I spoke with Guillaume Abdullahi in Social Work and he is going to meet with patient and provide her options for SNF placement. Acute renal failure (ARF) 08/24/20152014 Overview: Cr 1.48 in ED on admission, normalized after IV fluids, remains stable. Lumbosacral radiculitis 02/21/2015 12/07/19 Rotator cuff (capsule) sprain 08/06/2014 Cervicalgia 07/17/2013 05/11/2016 Pain in joint, shoulder region 07/17/2013 1 11/23/2013 Osteoarthritis of ankle or foot, right 1 12/07/2017 Diabetes mellitus type 2, controlled, without co mplications 05/24/2011 05/11/2016 Overview: PLAN: -Home glyburide, metformin, pioglitazone held -Insulin sliding scale 1 as needed Gait disturbance 05/20/2011 05/11/2016 Arthritis, hip 05/20/2011 09/23/2014 Hyperlipidemia 02/19/2011 02/12/2014 Osteoarthrosis, unspecified whether generalized or localized, pelvic region and thigh 11/16/2010 09/15/2011 Degenerative arthritis of hip 10/31/2010 Overview: Severe left > right Pain in joint, pelvic region and thigh 0 09/15/2011 Thoracic or lumbosacral neuritis or radiculitis, unspecified 10/31/2010 09/15/2011 Lumbosacral spondylosis without myelopathy 10/3109/15/2011 Diabetes Mellitus Type II, Uncontrolled; 199912/01/2016 Vertigo of central origin 01/08/20102010 Peripheral vertigo, unspecified 01/08/2010 09/15/2011 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 Renal dysfunction 03/07/2017 documented as of this encounter (statuses as of 02/18/2022) [facility] History of Past illness Narrative* Problem Noted Date Resolved Date Plantar fasciitis 05/25/2017 12/07/2017 CKD (chronic kidney disease) 05/11/2016 Type 2 diabetes mellitus without complication 03/07/2017 Sacroiliitis 10/28/2015 12/07/2017 Constipation 08/28/2015 05/11/2016 Unable to ambulate 08/27/2015 05/11/2016 Intractable low back pain 08/25/20152016 Overview: PLAN: -Tylenol 650 mg po scheduled q8h -Neurontin 200 mg po tid, will uptitrate per Pain's recs -Nucynta 50 mg po q4h PRN severe pain. -Medrol dosepak initiated on 08/27/2015 -scheduled Miralax and Colace to prevent narcotic-induced constipation -MARK Huizar in Neurosurgery spoke with Dr. Martines as to whether patient requires expedited morphine pump implantation while inpatient, but Dr. Martines prefers to allow Anesthesia Pain service to treat her pain while inpatient with plan for pump implantation as outpatient. Tentatively planning for pump implantation on October 01, 2015. Neurosurgery would like patient to follow-up with Anesthesia Chronic Pain in outpatient setting. Appointment ordered (scheduled for 09/05/15 at 08:40am C25). -Greatly appreciate [facility]'s recs from Chronic Pain service -Patient's niece and MARK Sanchez called Dr. Martines on 08/26/2015 to get an update on patient, expressed concern that patient is having difficulty ambulating and plan is for her to return home. Physical therapy consulted, felt patient safe to discharge home but recommended home PT. -I spoke with patient and sisters at bedside on 08/27/2015. Patient, sisters, and nursing expressed concern that patient was not safe to return home (even with home physical therapy) given severe pain and inability to ambulate on own. I share their concern. -I spoke with Guillaume Abdullahi in Social Work and he is going to meet with patient and provide her options for SNF placement. Acute renal failure (ARF) 08/24/20152014 Overview: Cr 1.48 in ED on admission, normalized after IV fluids, remains stable. Lumbosacral radiculitis 02/21/2015 12/07/19 18 Rotator cuff (capsule) sprain 08/06/2014 Cervicalgia 07/17/2013 05/11/2016 Pain in joint, shoulder region 07/17/2013 1 11/23/2013 Osteoarthritis of ankle or foot, right 1 12/07/2017 Diabetes mellitus type 2, controlled, without co mplications 05/24/2011 05/11/2016 Overview: PLAN: -Home glyburide, metformin, pioglitazone held -Insulin sliding scale 1 as needed Gait disturbance 05/20/2011 05/11/2016 Arthritis, hip 05/20/2011 09/23/2014 Hyperlipidemia 02/19/2011 02/12/2014 Osteoarthrosis, unspecified whether generalized or localized, pelvic region and thigh 11/16/2010 09/15/2011 Degenerative arthritis of hip 10/31/2010 Overview: Severe left > right Pain in joint, pelvic region and thigh 0 09/15/2011 Thoracic or lumbosacral neuritis or radiculitis, unspecified 10/31/2010 09/15/2011 Lumbosacral spondylosis without myelopathy 10/3109/15/2011 Diabetes Mellitus Type II, Uncontrolled; 199912/01/2016 Vertigo of central origin 01/08/20102010 Peripheral vertigo, unspecified 01/08/2010 09/15/2011 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 Renal dysfunction 03/07/2017 documented as of this encounter (statuses as of 02/26/2022) [facility] History of Past illness Narrative* Problem Noted Date Resolved Date Plantar fasciitis 05/25/2017 12/07/2017 CKD (chronic kidney disease) 05/11/2016 Type 2 diabetes mellitus without complication 03/07/2017 Sacroiliitis 10/28/2015 12/07/2017 Constipation 08/28/2015 05/11/2016 Unable to ambulate 08/27/2015 05/11/2016 Intractable low back pain 08/25/20152016 Overview: PLAN: -Tylenol 650 mg po scheduled q8h -Neurontin 200 mg po tid, will uptitrate per Pain's recs -Nucynta 50 mg po q4h PRN severe pain. -Medrol dosepak initiated on 08/27/2015 -scheduled Miralax and Colace to prevent narcotic-induced constipation -MARK Huizar in Neurosurgery spoke with Dr. Martines as to whether patient requires expedited morphine pump implantation while inpatient, but Dr. Martines prefers to allow Anesthesia Pain service to treat her pain while inpatient with plan for pump implantation as outpatient. Tentatively planning for pump implantation on October 01, 2015. Neurosurgery would like patient to follow-up with Anesthesia Chronic Pain in outpatient setting. Appointment ordered (scheduled for 09/05/15 at 08:40am C25). -Greatly appreciate [facility]'s recs from Chronic Pain service -Patient's niece and MARK Laura called Dr. Martines on 08/26/2015 to get an update on patient, expressed concern that patient is having difficulty ambulating and plan is for her to return home. Physical therapy consulted, felt patient safe to discharge home but recommended home PT. -I spoke with patient and sisters at bedside on 08/27/2015. Patient, sisters, and nursing expressed concern that patient was not safe to return home (even with home physical therapy) given severe pain and inability to ambulate on own. I share their concern. -I spoke with Guillaume Fernando in Social Work and he is going to meet with patient and provide her options for SNF placement. Acute renal failure (ARF) 08/24/20152014 Overview: Cr 1.48 in ED on admission, normalized after IV fluids, remains stable. Lumbosacral radiculitis 02/21/2015 12/07/19 18 Rotator cuff (capsule) sprain 08/06/2014 Cervicalgia 07/17/2013 05/11/2016 Pain in joint, shoulder region 07/17/2013 1 11/23/2013 Osteoarthritis of ankle or foot, right 1 12/07/2017 Diabetes mellitus type 2, controlled, without co mplications 05/24/2011 05/11/2016 Overview: PLAN: -Home glyburide, metformin, pioglitazone held -Insulin sliding scale 1 as needed Gait disturbance 05/20/2011 05/11/2016 Arthritis, hip 05/20/2011 09/23/2014 Hyperlipidemia 02/19/2011 02/12/2014 Osteoarthrosis, unspecified whether generalized or localized, pelvic region and thigh 11/16/2010 09/15/2011 Degenerative arthritis of hip 10/31/2010 Overview: Severe left > right Pain in joint, pelvic region and thigh 0 09/15/2011 Thoracic or lumbosacral neuritis or radiculitis, unspecified 10/31/2010 09/15/2011 Lumbosacral spondylosis without myelopathy 10/3109/15/2011 Diabetes Mellitus Type II, Uncontrolled; 199912/01/2016 Vertigo of central origin 01/08/20102010 Peripheral vertigo, unspecified 01/08/2010 09/15/2011 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 Renal dysfunction 03/07/2017 documented as of this encounter (statuses as of 03/22/2022) [facility] of Past illness Narrative* Problem Noted Date Resolved Date Plantar fasciitis 05/25/2017 12/07/2017 CKD (chronic kidney disease) 05/11/2016 Type 2 diabetes mellitus without complication 03/07/2017 Sacroiliitis 10/28/2015 12/07/2017 Constipation 08/28/2015 05/11/2016 Unable to ambulate 08/27/2015 05/11/2016 Intractable low back pain 08/25/20152016 Overview: PLAN: -Tylenol 650 mg po scheduled q8h -Neurontin 200 mg po tid, will uptitrate per Pain's recs -Nucynta 50 mg po q4h PRN severe pain. -Medrol dosepak initiated on 08/27/2015 -scheduled Miralax and Colace to prevent narcotic-induced constipation -MARK Huizar in Neurosurgery spoke with Dr. Martines as to whether patient requires expedited morphine pump implantation while inpatient, but Dr. Martines prefers to allow Anesthesia Pain service to treat her pain while inpatient with plan for pump implantation as outpatient. Tentatively planning for pump implantation on October 01, 2015. Neurosurgery would like patient to follow-up with Anesthesia Chronic Pain in outpatient setting. Appointment ordered (scheduled for 09/05/15 at 08:40am C25). -Greatly appreciate [facility]'s recs from Chronic Pain service -Patient's niece and MARK Sanchez called Dr. Martines on 08/26/2015 to get an update on patient, expressed concern that patient is having difficulty ambulating and plan is for her to return home. Physical therapy consulted, felt patient safe to discharge home but recommended home PT. -I spoke with patient and sisters at bedside on 08/27/2015. Patient, sisters, and nursing expressed concern that patient was not safe to return home (even with home physical therapy) given severe pain and inability to ambulate on own. I share their concern. -I spoke with Guillaume Fernando in Social Work and he is going to meet with patient and provide her options for SNF placement. Acute renal failure (ARF) 08/24/20152014 Overview: Cr 1.48 in ED on admission, normalized after IV fluids, remains stable. Lumbosacral radiculitis 02/21/2015 12/07/19 18 Rotator cuff (capsule) sprain 08/06/2014 Cervicalgia 07/17/2013 05/11/2016 Pain in joint, shoulder region 07/17/2013 1 11/23/2013 Osteoarthritis of ankle or foot, right 11 1412/07/2017 Diabetes mellitus type 2, controlled, without co mplications 05/24/2011 05/11/2016 Overview: PLAN: -Home glyburide, metformin, pioglitazone held -Insulin sliding scale 1 as needed Gait disturbance 05/20/2011 05/11/2016 Hyperlipidemia 02/19/2011 02/12/2014 Osteoarthrosis, unspecified whether generalized or localized, pelvic region and thigh 11/16/2010 09/15/2011 Degenerative arthritis of hip 10/31/2010 Overview: Severe left > right Pain in joint, pelvic region and thigh 0 09/15/2011 Thoracic or lumbosacral neuritis or radiculitis, unspecified 10/31/2010 09/15/2011 Lumbosacral spondylosis without myelopathy 10/3109/15/2011 Diabetes Mellitus Type II, Uncontrolled; 199912/01/2016 Vertigo of central origin 01/08/20102010 Peripheral vertigo, unspecified 01/08/2010 09/15/2011 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 Renal dysfunction 03/07/2017 documented as of this encounter (statuses as of 03/25/2022) [facility] Type 2 diabetes mellitus with stage 3 chronic kidney disease, without long-term current use of insulin (HCC) DDD (degenerative disc disease), cervical Degeneration of cervical intervertebral disc [facility] Diagnosis DDD (degenerative disc disease), cervical Degeneration of cervical intervertebral disc [facility] Essential hypertension Unspecified essential hypertension [facility] Diagnosis Acute cystitis without hematuria- Primary Acute cystitis Hypertensive kidney disease with stage 3b chronic kidney disease (HCC) Hyperlipidemia associated with type 2 diabetes mellitus (HCC) Essential hypertension Unspecified essential hypertension CKD stage 3 due to type 2 diabetes mellitus (HCC) Diabetes mellitus, non-insulin dependent (NIDDM or type II) (HCC) Iron deficiency anemia, unspecified iron deficiency anemia type Normocytic anemia Anemia, unspecified Shoulder arthritis Unspecified arthropathy, shoulder region Hip arthritis Unspecified arthropathy, pelvic region and thigh Traumatic complete tear of right rotator cuff, sequela Sacroiliitis (HCC) Sacroiliitis, not elsewhere classified [facility]* Diagnosis Screening for colon cancer- Primary Special screening for malignant neoplasms, colon [facility] Diagnosis Iron deficiency anemia, unspecified iron deficiency anemia type- Primary [facility] Diagnosis Iron deficiency anemia, unspecified iron deficiency anemia type- Primary Acute cystitis with hematuria Acute cystitis Diabetes mellitus, non-insulin dependent (NIDDM or type II) (HCC) CKD stage 3 due to type 2 diabetes mellitus (HCC) Essential hypertension Unspecified essential hypertension Hyperlipidemia associated with type 2 diabetes mellitus (HCC) Hypertensive kidney disease with stage 3b chronic kidney disease (HCC) [facility] Diagnosis Gastroesophageal reflux disease without esophagitis Esophageal reflux [facility] Diagnosis Type 2 diabetes mellitus with stage 3 chronic kidney disease, without long-term current use of insulin (HCC) [facility] Diagnosis Diabetes mellitus, non-insulin dependent (NIDDM or type II) (HCC)- Primary Hyperlipidemia with target LDL less than 100 Other and unspecified hyperlipidemia Screening for diabetic retinopathy Screening for other eye conditions Hypertensive kidney disease with stage 3b chronic kidney disease (HCC) Hyperlipidemia associated with type 2 diabetes mellitus (HCC) Essential hypertension Unspecified essential hypertension CKD stage 3 due to type 2 diabetes mellitus (HCC) [facility] Diagnosis Diabetes mellitus, non-insulin dependent (NIDDM or type II) (HCC)- Primary [facility]* Diagnosis Essential hypertension Unspecified essential hypertension documented in this encounter [facility] note* Diagnosis Pain in both hands- Primary Pain in both wrists Pain in joint, forearm Leukocytosis, unspecified type Type 2 diabetes mellitus with stage 3 chronic kidney disease, without long-term current use of insulin, unspecified whether stage 3a or 3b CKD ([facility]) Muscular deconditioning Muscular wasting and disuse atrophy, not elsewhere classified documented in this encounter [facility] note* Diagnosis Diabetes mellitus, non-insulin dependent (NIDDM or type II) (HCC)- Primary Essential hypertension Unspecified essential hypertension CKD stage 3 due to type 2 diabetes mellitus (HCC) [facility]* Diagnosis Diabetes mellitus, non-insulin dependent (NIDDM or type II) (HCC)- Primary CKD stage 3 due to type 2 diabetes mellitus (HCC) documented in this encounter [facility] note* Diagnosis Diabetes mellitus, non-insulin dependent (NIDDM or type II) (HCC) [facility]* Diagnosis Diabetes mellitus, non-insulin dependent (NIDDM or type II) (HCC) [facility]* Diagnosis Gastroesophageal reflux disease without esophagitis Esophageal reflux documented in this encounter [facility] note* Diagnosis Diabetes mellitus, non-insulin dependent (NIDDM or type II) (HCC)- Primary documented in this encounter [facility] note* Diagnosis Diabetes mellitus, non-insulin dependent (NIDDM or type II) (HCC) documented in this encounter [facility] note* Diagnosis Essential hypertension Unspecified essential hypertension [facility]* Diagnosis Essential hypertension Unspecified essential hypertension [facility] Diagnosis Gastroesophageal reflux disease without esophagitis Esophageal reflux [facility]* Diagnosis Diabetes mellitus, non-insulin dependent (NIDDM or type II) (HCC)- Primary Hyperlipidemia associated with type 2 diabetes mellitus (HCC) (HCC) Essential hypertension Unspecified essential hypertension [facility]* Diagnosis Type 2 diabetes mellitus without retinopathy (HCC)- Primary Type II or unspecified type diabetes mellitus without mention of complication, not stated as uncontrolled Pseudophakia Lens replaced by other means [facility] Diagnosis Type 2 diabetes mellitus with stage 3 chronic kidney disease, without long-term current use of insulin (HCC) [facility] Diagnosis Diabetes mellitus, non-insulin dependent (NIDDM or type II) (HCC) [facility] Diagnosis Essential hypertension- Primary Unspecified essential hypertension CKD stage 3 due to type 2 diabetes mellitus (HCC) Hypertensive kidney disease with stage 3b chronic kidney disease (HCC) Hyperlipidemia associated with type 2 diabetes mellitus (HCC) (HCC) Diabetes mellitus, non-insulin dependent (NIDDM or type II) (HCC) Dyslipidemia Other and unspecified hyperlipidemia Weight loss Loss of weight Iron deficiency anemia, unspecified iron deficiency anemia type [facility] Diagnosis Essential hypertension Unspecified essential hypertension [facility] Diagnosis Generalized weakness- Primary Other malaise and fatigue Headache, unspecified headache type Leukocytosis, unspecified type CKD stage 3 due to type 2 diabetes mellitus (HCC) Normocytic anemia Anemia, unspecified Essential hypertension Unspecified essential hypertension Insomnia Insomnia, unspecified Arthralgia, unspecified joint [facility] Diagnosis Pain Generalized pain [facility]* Diagnosis Leukocytosis, unspecified type- Primary [facility] Diagnosis Right ankle swelling Effusion of ankle and foot joint [facility] Diagnosis Right ankle swelling- Primary Effusion of ankle and foot joint Closed nondisplaced fracture of right calcaneus, unspecified portion of calcaneus, initial encounter [facility] Diagnosis Right ankle swelling Effusion of ankle and foot joint [facility] Diagnosis Pain in joint involving right ankle and foot [facility] Diagnosis Right ankle swelling Effusion of ankle and foot joint Closed nondisplaced fracture of right calcaneus, unspecified portion of calcaneus, initial encounter [facility] Diagnosis Leukocytosis, unspecified type- Primary Normocytic anemia Anemia, unspecified Right ankle swelling Effusion of ankle and foot joint Right ankle swelling Effusion of ankle and foot joint Right ankle swelling Effusion of ankle and foot joint [facility] Diagnosis Medicare annual wellness visit, subsequent- Primary Routine general medical examination at a health care facility Screening for depression Insomnia Insomnia, unspecified Encounter for screening examination for other mental health and behavioral disorders Abrasion of right ankle, initial encounter Essential hypertension Unspecified essential hypertension Primary insomnia Persistent disorder of initiating or maintaining sleep Hyperlipidemia associated with type 2 diabetes mellitus (HCC) (HCC) Hypertensive kidney disease with stage 3b chronic kidney disease (HCC) CKD stage 3 due to type 2 diabetes mellitus (HCC) Diabetes mellitus, non-insulin dependent (NIDDM or type II) (HCC) Iron deficiency anemia, unspecified iron deficiency anemia type Leukocytosis, unspecified type [facility] Right ankle swelling- Primary Effusion of ankle and foot joint Chronic pain of right ankle [facility] Diagnosis Right ankle swelling Effusion of ankle and foot joint [facility] Diagnosis Chronic pain of right ankle- Primary [facility] Diagnosis Normocytic anemia- Primary Anemia, unspecified Leukocytosis, unspecified type [facility] Diagnosis Chronic pain of right ankle [facility] Diagnosis Essential hypertension Unspecified essential hypertension [facility] Diagnosis 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)- Primary Ulcer of ankle [facility] Diagnosis Pseudogout- Primary Other disorder of calcium metabolism Ankle swelling, right Medication monitoring encounter Encounter for therapeutic drug monitoring [facility] Diagnosis 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)- Primary Ulcer of ankle Subacute osteomyelitis of right fibula (HCC) Pressure injury of right ankle, stage 3 (HCC) Type 2 diabetes mellitus 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 manifestations (HCC) Type II or unspecified type diabetes mellitus without mention of complication, not stated as uncontrolled Stage 3a chronic kidney disease (HCC) [facility] Diagnosis Pressure injury of right ankle, stage 3 (HCC)- Primary [facility] Diagnosis Hyperlipidemia with target LDL less than 100 Other and unspecified hyperlipidemia [facility] Diagnosis Leukocytosis, unspecified type- Primary Normocytic anemia Anemia, unspecified Vitamin B6 deficiency Cellulitis of right ankle [facility] noteNo assessment information availableWHolmes [facility] Work Phone: Evaluation note* Diagnosis 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)- Primary Ulcer of ankle documented in this encounter [facility] for referral (narrative)* Diagnostic Procedure Only (Routine) - Closed Specialty Diagnoses / Procedures Referred By Contac t Referred To Contact XR IMAGING Diagnoses Pain Procedures XR SHOULDER GENERAL 3V OR MORE AP/TRUE AP/OTHER LT X-RAY SHOULDER COMPLET [place] [address] [place] [address] [place] [address] Referral ID Status Reason Start Date Expiration Date V isits Requested Visits Authorized [id number] Closed Auto-Generate d Referral 07/09/2021 08/08/2022 1 1 [facility] for referral (narrative)* Diagnostic Procedure Only (Routine) - Closed Specialty Diagnoses / Procedures Referred By Contac t Referred To Contact XR IMAGING Diagnoses Right ankle swelling Procedures XR ANKLE GENERAL 3V AP/LAT/OBL RIGHT RADEX ANKLE COMPLETE MINIMUM 3 [place] [address] [place] [address] [place] [address] Referral ID Status Reason Start Date Expiration Date V isits Requested Visits Authorized [id number] Closed Auto-Generate d Referral 09/17/2024 10/17/2025 1 1 [facility] for referral (narrative)* Diagnostic Procedure Only (Urgent) - Closed Specialty Diagnoses / Procedures Referred By Contac t Referred To Contact US IMAGING Diagnoses Right ankle swelling Procedures US DVT LOWER RIGHT DUP-SCAN XTR VEINS UNILATERAL/[place] [address] [place] [phone] [place] [address] Referral ID Status Reason Start Date Expiration Date V isits Requested Visits Authorized [id number] Closed Auto-Generate d Referral 09/18/2024 10/17/2025 1 1 [facility] for referral (narrative)* Diagnostic Procedure Only (Routine) - Closed Specialty Diagnoses / Procedures Referred By Contac t Referred To Contact XR IMAGING Diagnoses Right ankle swelling Procedures XR ANKLE GENERAL 3V AP/LAT/OBL RIGHT RADEX ANKLE COMPLETE MINIMUM 3 [place] [address] [place] [address] [place] [address] Referral ID Status Reason Start Date Expiration Date V isits Requested Visits Authorized [id number] Closed Auto-Generate d Referral 09/17/2024 10/17/2025 1 1 * Diagnostic Procedure Only (Urgent) - Closed Specialty Diagnoses / Procedures Referred By Contac t Referred To Contact US IMAGING Diagnoses Right ankle swelling Procedures US DVT LOWER RIGHT DUP-SCAN XTR VEINS UNILATERAL/[place] [phone] [place] [address] Referral ID Status Reason Start Date Expiration Date V isits Requested Visits Authorized [id number] Closed Auto-Generate d Referral 09/18/2024 10/17/2025 1 1 [facility] for referral (narrative)No reason for referral information availableWHolmes [facility] Work Phone: Reason for visit Narrative* Diagnostic Procedure Only (Routine) - Closed Specialty Diagnoses / Procedures Referred By Contac t Referred To Contact XR IMAGING Diagnoses Pain in joint involving right ankle and foot Procedures XR CALCANEUS 2V AXIAL/LAT RIGHT RADEX CALCANEUS MINIMUM 2 VIEWS Simone Kevin MD [address] [place] [address] [place] [address] Referral ID Status Reason Start Date Expiration Date V isits Requested Visits Authorized [id number] Closed Auto-Generate d Referral 09/19/2024 10/19/2025 1 1 [facility] Summary Purpose Family History No Family History Records FoundNo Family History Records FoundNo Family History Records FoundNo Family History Records Found Advance Directives No Advanced Directives Records FoundDocuments on File Type Date Recorded Patient [employer] Advance Directive(s) 2024 10:00 AM Date Activated Date Inactivated Comments 11/22/2024 3:14 AM 12/12/2024 5:17 PM Question Answer Comments Full Code Order Discussed With: Patient Date Activated Date Inactivated Comments 03/07/2023 4:44 AM 03/09/2023 7:53 PM Question Answer Comments Full Code Order Discussed With: Patient Date Activated Date Inactivated Comments 03/24/2022 3:23 PM 03/26/2022 7:51 PM Question Answer Comments Full Code Order Discussed With: Patient Documents on File Type Date Recorded Patient [employer] Advance Directive(s) 08/28/2015 9:03 PM Date Activated Date Inactivated Comments 03/07/2023 4:44 AM 03/09/2023 7:53 PM Date Activated Date Inactivated Comments 03/24/2022 3:23 PM 03/26/2022 7:51 PM Latest Code Status on File Code Status Date Activated Date Inactivated Comments Full Code 03/24/2022 3:23 PM 03/26/2022 7:51 PM Full Code Order Discussed With: Patient Documents on File Type Date Recorded Patient [employer] Advance Directive(s) Advance Directive(s) 05/19/2020 10:04 PM Advance Directive(s) 03/11/2017 1:34 PM Advance Directive(s) 12/10/2016 5:24 PM Advance Directive(s) 04/17/2016 11:22 AM Advance Directive(s) 08/28/2015 9:03 PM Documents on File Type Date Recorded Patient [employer] Advance Directive(s) Advance Directive(s) 03/23/2022 11:09 PM Advance Directive(s) 05/19/2020 10:04 PM Advance Directive(s) 03/11/2017 1:34 PM Advance Directive(s) 12/10/2016 5:24 PM Advance Directive(s) 04/17/2016 11:22 AM Advance Directive(s) 08/28/2015 9:03 PM Latest Code Status on File Code Status Date Activated Date Inactivated Comments Full Code 03/24/2022 3:23 PM Documents on File Type Date Recorded Patient [employer] Advance Directive(s) Advance Directive(s) 03/27/2022 12:20 AM Advance Directive(s) 03/23/2022 11:09 PM Advance Directive(s) 05/19/2020 10:04 PM Advance Directive(s) 03/11/2017 1:34 PM Advance Directive(s) 12/10/2016 5:24 PM Advance Directive(s) 04/17/2016 11:22 AM Advance Directive(s) 08/28/2015 9:03 PM Documents on File Type Date Recorded Patient [employer] Advance Directive(s) 08/28/2015 9:03 PM Latest Code Status on File Code Status Date Activated Date Inactivated Comments Full Code 03/24/2022 3:23 PM 03/26/2022 7:51 PM Latest Code Status on File Code Status Date Activated Date Inactivated Comments Full Code 03/07/2023 4:44 AM 03/09/2023 7:53 PM Full Code 03/24/2022 3:23 PM 03/26/2022 7:51 PM Latest Code Status on File Code Status Date Activated Date Inactivated Comments Full Code 03/07/2023 4:44 AM 03/09/2023 7:53 PM Full Code 03/24/2022 3:23 PM 03/26/2022 7:51 PM Latest Code Status on File Code Status Date Activated Date Inactivated Comments Full Code 03/07/2023 4:44 AM 03/09/2023 7:53 PM Question Answer Comments Full Code Order Discussed With: Patient Code Status History Code Status Date Activated Date Inactivated Comments Full Code 03/24/2022 3:23 PM 03/26/2022 7:51 PM Question Answer Comments Full Code Order Discussed With: Patient Date Activated Date Inactivated Comments 03/07/2023 4:44 AM 03/09/2023 7:53 PM Question Answer Comments Full Code Order Discussed With: Patient Date Activated Date Inactivated Comments 03/24/2022 3:23 PM 03/26/2022 7:51 PM Question Answer Comments Full Code Order Discussed With: Patient Date Activated Date Inactivated Comments 11/22/2024 3:14 AM Health Concerns Infection Onset Date Last Indicated Resolved Time COVID-19 Rule-Out 03/24/2022 03/24/2022 03/24/2022 1:31 AM EDT Reason for Referral Specialty Diagnoses / Procedures Referred By Contac t Referred To Contact Ophthalmology Diagnoses Screening for diabetic retinopathy Procedures CONSULT TO OPHTHALMOLOGY OFFICE/OUTPATIENT [facility] MDM 60-[place] [address] [place] [phone] Referral ID Status Reason Start Date Expiration Date Visits Requested Visits Authorized [id number] Pending Review PCP Requested Referral 10/23/2023 1 1 Specialty Diagnoses / Procedures Referred By Contac t Referred To Contact [facility] Diagnoses Muscular deconditioning Procedures CONSULT TO PHYSICAL THERAPY PHYSICAL THERAPY EVALUATION HIGH COMPLEX 45 MINS Willie Kaur, [employer] [address] [place] [phone] [facility] [place] [phone] [place] [phone] Referral ID Status Reason Start Date Expiration Date Visits Requested Visits Authorized [id number] Pending Review Auto-Generat ed Referral 03/17/2023 03/16/2024 1 1 Specialty Diagnoses / Procedures Referred By Contac t Referred To Contact [facility] Diagnoses Pain in both hands Pain in both wrists Procedures CONSULT TO HOUSE OFFICER OCCUPATIONAL THERAPY EVAL HIGH COMPLEX 60 MINS Willie Kaur, [employer] [address] [place] [address] [facility] [address] [address] Referral ID Status Reason Start Date Expiration Date Visits Requested Visits Authorized [id number] Pending Review Auto-Generat ed Referral 03/17/2023 03/16/2024 1 1 Specialty Diagnoses / Procedures Referred By Contac t Referred To Contact Diagnoses Leukocytosis, unspecified type Procedures CONSULT TO HEMATOLOGY/ONCOLOGY OFFICE/OUTPATIENT [facility] MDM 60 [place] [address] [place] [address] Referral ID Status Reason Start Date Expiration Date Visits Requested Visits Authorized [id number] Authorized PCP Requested Referral 09/04/2025 1 1 Specialty Diagnoses / Procedures Referred By Contac t Referred To Contact Orthopedics Diagnoses Right ankle swelling Closed nondisplaced fracture of right calcaneus, unspecified portion of calcaneus, initial encounter Procedures CONSULT PANEL TO ORTHOPAEDICS OFFICE/OUTPATIENT [facility] [place] [address] [place] [phone] Referral ID Status Reason Start Date Expiration Date Visits Requested Visits Authorized [id number] Authorized PCP Requested Referral 09/18/2024 09/18/2025 1 1 Specialty Diagnoses / Procedures Referred By Contac t Referred To Contact MR IMAGING Diagnoses Chronic pain of right ankle Procedures MRI ANKLE WO IVCON RIGHT MRI ANY JT LOWER EXTREM W/O CONTRAST MATRL Simone Kevin MD [address] [place] [address] Mr Imaging [place] [address] Referral ID Status Reason Start Date Expiration Date Visits Requested Visits Authorized [id number] Authorized Auto-Generat ed Referral 12/01/2025 1 1 Specialty Diagnoses / Procedures Referred By Contac t Referred To Contact XR IMAGING Diagnoses Right ankle swelling Procedures XR FOOT GENERAL 3V AP/LAT/OBL RIGHT RADEX FOOT COMPLETE MINIMUM 3 VIEWS Simone Kevin MD [address] [place] [address] Xr Imaging [place] [address] Referral ID Status Reason Start Date Expiration Date V isits Requested Visits Authorized [id number] Closed Auto-Generate d Referral 11/01/2024 12/01/2025 1 1 Specialty Diagnoses / Procedures Referred By Contac t Referred To Contact XR IMAGING Diagnoses Right ankle swelling Procedures XR ANKLE GENERAL 3V AP/LAT/OBL RIGHT RADEX ANKLE COMPLETE MINIMUM 3 VIEWS Simone Kevin MD [address] [place] [address] [place] [address] Referral ID Status Reason Start Date Expiration Date V isits Requested Visits Authorized [id number] Closed Auto-Generate d Referral 11/01/2024 12/01/2025 1 1 Referral ID Status Reason Start Date Expiration Date V isits Requested Visits Authorized [id number] Closed Auto-Generate d Referral 11/01/2024 12/01/2025 1 1 Chief Complaint and Reason for Visit Chief Complaint Admit Date LAB WORK December 17, 2024 4 :00am LAB WORK December 24, 2024 4:00am LABWORK 2024 5:00am LABWORK January 07, 2025 5:00am PRISON LAB WORK January 15, 2025 5: 00am Chief Complaint Admit Date LAB WORK December 17, 2024 4 :00am LAB WORK December 24, 2024 4:00am LABWORK 2024 5:00am LABWORK January 07, 2025 5:00am PRISON LAB WORK January 15, 2025 5: 00am PRISON LAB WORK February 04, 2025 5 :00am Chief Complaint Admit Date LAB WORK December 17, 2024 4 :00am LAB WORK December 24, 2024 4:00am LABWORK 2024 5:00am LABWORK January 07, 2025 5:00am PRISON LAB WORK January 15, 2025 5: 00am PRISON LAB WORK February 04, 2025 5 :00am PRISON LAB WORK March 04, 2025 5 :00am Chief Complaint Admit Date LAB WORK December 24, 2024 4:00am LABWORK 2024 5:00am LABWORK January 07, 2025 5:00am PRISON LAB WORK January 15, 2025 5: 00am PRISON LAB WORK February 04, 2025 5 :00am PRISON LAB WORK March 04, 2025 5 :00am PRISON LAB WORK March 12, 2025 4 :00am LABWORK April 01, 2025 5:00a m Additional Source Comments INFORMATION SOURCE (unrecogn ized section and content) DATE CREATED AUTHOR 12/10/2021 [facility] DATE CREATED AUTHOR AUTHOR'S ORGANIZ ATION 02/12/2025 [facility] DATE CREATED AUTHOR AUTHOR'S ORGANIZ ATION 02/16/2025 [facility] DATE CREATED AUTHOR AUTHOR'S ORGANIZ ATION 04/26/2025 [facility] Source Comments (unrecognize d section and content) In the event this informatio n is protected by the Federal Confidentiality of Alcohol and Drug Abuse Patient Records regulations: The Federal rules restrict any use of the information to criminally investigate or prosecute any alcohol or drug abuse patient.[facility] the event this information is protected by the Federal Confidentiality of Alcohol and Drug Abuse Patient Records regulations: The Federal rules restrict any use of the information to criminally investigate or prosecute any alcohol or drug abuse patient.[facility] HospitalIn the event this information is protected by the Federal Confidentiality of Alcohol and Drug Abuse Patient Records regulations: The Federal rules restrict any use of the information to criminally investigate or prosecute any alcohol or drug abuse patient.[facility] HospitalIn the event this information is protected by the Federal Confidentiality of Alcohol and Drug Abuse Patient Records regulations: The Federal rules restrict any use of the information to criminally investigate or prosecute any alcohol or drug abuse patient.[facility] HospitalIn the event this information is protected by the Federal Confidentiality of Alcohol and Drug Abuse Patient Records regulations: The Federal rules restrict any use of the information to criminally investigate or prosecute any alcohol or drug abuse patient.[facility] HospitalIn the event this information is protected by the Federal Confidentiality of Alcohol and Drug Abuse Patient Records regulations: The Federal rules restrict any use of the information to criminally investigate or prosecute any alcohol or drug abuse patient.[facility] HospitalIn the event this information is protected by the Federal Confidentiality of Alcohol and Drug Abuse Patient Records regulations: The Federal rules restrict any use of the information to criminally investigate or prosecute any alcohol or drug abuse patient.[facility] HospitalIn the event this information is protected by the Federal Confidentiality of Alcohol and Drug Abuse Patient Records regulations: The Federal rules restrict any use of the information to criminally investigate or prosecute any alcohol or drug abuse patient.[facility] HospitalIn the event this information is protected by the Federal Confidentiality of Alcohol and Drug Abuse Patient Records regulations: The Federal rules restrict any use of the information to criminally investigate or prosecute any alcohol or drug abuse patient.[facility] HospitalIn the event this information is protected by the Federal Confidentiality of Alcohol and Drug Abuse Patient Records regulations: The Federal rules restrict any use of the information to criminally investigate or prosecute any alcohol or drug abuse patient.[facility] HospitalIn the event this information is protected by the Federal Confidentiality of Alcohol and Drug Abuse Patient Records regulations: The Federal rules restrict any use of the information to criminally investigate or prosecute any alcohol or drug abuse patient.[facility] HospitalIn the event this information is protected by the Federal Confidentiality of Alcohol and Drug Abuse Patient Records regulations: The Federal rules restrict any use of the information to criminally investigate or prosecute any alcohol or drug abuse patient.[facility] HospitalIn the event this information is protected by the Federal Confidentiality of Alcohol and Drug Abuse Patient Records regulations: The Federal rules restrict any use of the information to criminally investigate or prosecute any alcohol or drug abuse patient.[facility] HospitalIn the event this information is protected by the Federal Confidentiality of Alcohol and Drug Abuse Patient Records regulations: The Federal rules restrict any use of the information to criminally investigate or prosecute any alcohol or drug abuse patient.[facility] HospitalIn the event this information is protected by the Federal Confidentiality of Alcohol and Drug Abuse Patient Records regulations: The Federal rules restrict any use of the information to criminally investigate or prosecute any alcohol or drug abuse patient.[facility] ClinicIn the event this information is protected by the Federal Confidentiality of Alcohol and Drug Abuse Patient Records regulations: The Federal rules restrict any use of the information to criminally investigate or prosecute any alcohol or drug abuse patient.[facility] HospitalIn the event this information is protected by the Federal Confidentiality of Alcohol and Drug Abuse Patient Records regulations: The Federal rules restrict any use of the information to criminally investigate or prosecute any alcohol or drug abuse patient.[facility] HospitalIn the event this information is protected by the Federal Confidentiality of Alcohol and Drug Abuse Patient Records regulations: The Federal rules restrict any use of the information to criminally investigate or prosecute any alcohol or drug abuse patient.[facility] HospitalIn the event this information is protected by the Federal Confidentiality of Alcohol and Drug Abuse Patient Records regulations: The Federal rules restrict any use of the information to criminally investigate or prosecute any alcohol or drug abuse patient.[facility] HospitalIn the event this information is protected by the Federal Confidentiality of Alcohol and Drug Abuse Patient Records regulations: The Federal rules restrict any use of the information to criminally investigate or prosecute any alcohol or drug abuse patient.[facility] HospitalIn the event this information is protected by the Federal Confidentiality of Alcohol and Drug Abuse Patient Records regulations: The Federal rules restrict any use of the information to criminally investigate or prosecute any alcohol or drug abuse patient.[facility] HospitalIn the event this information is protected by the Federal Confidentiality of Alcohol and Drug Abuse Patient Records regulations: The Federal rules restrict any use of the information to criminally investigate or prosecute any alcohol or drug abuse patient.[facility] HospitalIn the event this information is protected by the Federal Confidentiality of Alcohol and Drug Abuse Patient Records regulations: The Federal rules restrict any use of the information to criminally investigate or prosecute any alcohol or drug abuse patient.[facility] HospitalIn the event this information is protected by the Federal Confidentiality of Alcohol and Drug Abuse Patient Records regulations: The Federal rules restrict any use of the information to criminally investigate or prosecute any alcohol or drug abuse patient.[facility] HospitalIn the event this information is protected by the Federal Confidentiality of Alcohol and Drug Abuse Patient Records regulations: The Federal rules restrict any use of the information to criminally investigate or prosecute any alcohol or drug abuse patient.[facility] HospitalIn the event this information is protected by the Federal Confidentiality of Alcohol and Drug Abuse Patient Records regulations: The Federal rules restrict any use of the information to criminally investigate or prosecute any alcohol or drug abuse patient.[facility] HospitalIn the event this information is protected by the Federal Confidentiality of Alcohol and Drug Abuse Patient Records regulations: The Federal rules restrict any use of the information to criminally investigate or prosecute any alcohol or drug abuse patient.[facility] HospitalIn the event this information is protected by the Federal Confidentiality of Alcohol and Drug Abuse Patient Records regulations: The Federal rules restrict any use of the information to criminally investigate or prosecute any alcohol or drug abuse patient.[facility] HospitalIn the event this information is protected by the Federal Confidentiality of Alcohol and Drug Abuse Patient Records regulations: The Federal rules restrict any use of the information to criminally investigate or prosecute any alcohol or drug abuse patient.[facility] HospitalIn the event this information is protected by the Federal Confidentiality of Alcohol and Drug Abuse Patient Records regulations: The Federal rules restrict any use of the information to criminally investigate or prosecute any alcohol or drug abuse patient.[facility] HospitalIn the event this information is protected by the Federal Confidentiality of Alcohol and Drug Abuse Patient Records regulations: The Federal rules restrict any use of the information to criminally investigate or prosecute any alcohol or drug abuse patient.[facility] HospitalIn the event this information is protected by the Federal Confidentiality of Alcohol and Drug Abuse Patient Records regulations: The Federal rules restrict any use of the information to criminally investigate or prosecute any alcohol or drug abuse patient.[facility] HospitalIn the event this information is protected by the Federal Confidentiality of Alcohol and Drug Abuse Patient Records regulations: The Federal rules restrict any use of the information to criminally investigate or prosecute any alcohol or drug abuse patient.[facility] HospitalIn the event this information is protected by the Federal Confidentiality of Alcohol and Drug Abuse Patient Records regulations: The Federal rules restrict any use of the information to criminally investigate or prosecute any alcohol or drug abuse patient.[facility] HospitalIn the event this information is protected by the Federal Confidentiality of Alcohol and Drug Abuse Patient Records regulations: The Federal rules restrict any use of the information to criminally investigate or prosecute any alcohol or drug abuse patient.[facility] HospitalIn the event this information is protected by the Federal Confidentiality of Alcohol and Drug Abuse Patient Records regulations: The Federal rules restrict any use of the information to criminally investigate or prosecute any alcohol or drug abuse patient.[facility] HospitalIn the event this information is protected by the Federal Confidentiality of Alcohol and Drug Abuse Patient Records regulations: The Federal rules restrict any use of the information to criminally investigate or prosecute any alcohol or drug abuse patient.[facility] HospitalIn the event this information is protected by the Federal Confidentiality of Alcohol and Drug Abuse Patient Records regulations: The Federal rules restrict any use of the information to criminally investigate or prosecute any alcohol or drug abuse patient.[facility] HospitalIn the event this information is protected by the Federal Confidentiality of Alcohol and Drug Abuse Patient Records regulations: The Federal rules restrict any use of the information to criminally investigate or prosecute any alcohol or drug abuse patient.[facility] HospitalIn the event this information is protected by the Federal Confidentiality of Alcohol and Drug Abuse Patient Records regulations: The Federal rules restrict any use of the information to criminally investigate or prosecute any alcohol or drug abuse patient.[facility] HospitalIn the event this information is protected by the Federal Confidentiality of Alcohol and Drug Abuse Patient Records regulations: The Federal rules restrict any use of the information to criminally investigate or prosecute any alcohol or drug abuse patient.[facility] HospitalIn the event this information is protected by the Federal Confidentiality of Alcohol and Drug Abuse Patient Records regulations: The Federal rules restrict any use of the information to criminally investigate or prosecute any alcohol or drug abuse patient.[facility] HospitalIn the event this information is protected by the Federal Confidentiality of Alcohol and Drug Abuse Patient Records regulations: The Federal rules restrict any use of the information to criminally investigate or prosecute any alcohol or drug abuse patient.[facility] HospitalIn the event this information is protected by the Federal Confidentiality of Alcohol and Drug Abuse Patient Records regulations: The Federal rules restrict any use of the information to criminally investigate or prosecute any alcohol or drug abuse patient.[facility] HospitalIn the event this information is protected by the Federal Confidentiality of Alcohol and Drug Abuse Patient Records regulations: The Federal rules restrict any use of the information to criminally investigate or prosecute any alcohol or drug abuse patient.[facility] HospitalIn the event this information is protected by the Federal Confidentiality of Alcohol and Drug Abuse Patient Records regulations: The Federal rules restrict any use of the information to criminally investigate or prosecute any alcohol or drug abuse patient.[facility] HospitalIn the event this information is protected by the Federal Confidentiality of Alcohol and Drug Abuse Patient Records regulations: The Federal rules restrict any use of the information to criminally investigate or prosecute any alcohol or drug abuse patient.[facility] HospitalIn the event this information is protected by the Federal Confidentiality of Alcohol and Drug Abuse Patient Records regulations: The Federal rules restrict any use of the information to criminally investigate or prosecute any alcohol or drug abuse patient.[facility] HospitalIn the event this information is protected by the Federal Confidentiality of Alcohol and Drug Abuse Patient Records regulations: The Federal rules restrict any use of the information to criminally investigate or prosecute any alcohol or drug abuse patient.[facility] HospitalIn the event this information is protected by the Federal Confidentiality of Alcohol and Drug Abuse Patient Records regulations: The Federal rules restrict any use of the information to criminally investigate or prosecute any alcohol or drug abuse patient.[facility] HospitalIn the event this information is protected by the Federal Confidentiality of Alcohol and Drug Abuse Patient Records regulations: The Federal rules restrict any use of the information to criminally investigate or prosecute any alcohol or drug abuse patient.[facility] HospitalIn the event this information is protected by the Federal Confidentiality of Alcohol and Drug Abuse Patient Records regulations: The Federal rules restrict any use of the information to criminally investigate or prosecute any alcohol or drug abuse patient.[facility] HospitalIn the event this information is protected by the Federal Confidentiality of Alcohol and Drug Abuse Patient Records regulations: The Federal rules restrict any use of the information to criminally investigate or prosecute any alcohol or drug abuse patient.[facility] HospitalIn the event this information is protected by the Federal Confidentiality of Alcohol and Drug Abuse Patient Records regulations: The Federal rules restrict any use of the information to criminally investigate or prosecute any alcohol or drug abuse patient.[facility] HospitalIn the event this information is protected by the Federal Confidentiality of Alcohol and Drug Abuse Patient Records regulations: The Federal rules restrict any use of the information to criminally investigate or prosecute any alcohol or drug abuse patient.[facility] HospitalIn the event this information is protected by the Federal Confidentiality of Alcohol and Drug Abuse Patient Records regulations: The Federal rules restrict any use of the information to criminally investigate or prosecute any alcohol or drug abuse patient.[facility] HospitalIn the event this information is protected by the Federal Confidentiality of Alcohol and Drug Abuse Patient Records regulations: The Federal rules restrict any use of the information to criminally investigate or prosecute any alcohol or drug abuse patient.[facility] HospitalIn the event this information is protected by the Federal Confidentiality of Alcohol and Drug Abuse Patient Records regulations: The Federal rules restrict any use of the information to criminally investigate or prosecute any alcohol or drug abuse patient.[facility] HospitalIn the event this information is protected by the Federal Confidentiality of Alcohol and Drug Abuse Patient Records regulations: The Federal rules restrict any use of the information to criminally investigate or prosecute any alcohol or drug abuse patient.[facility] HospitalIn the event this information is protected by the Federal Confidentiality of Alcohol and Drug Abuse Patient Records regulations: The Federal rules restrict any use of the information to criminally investigate or prosecute any alcohol or drug abuse patient.[facility] HospitalIn the event this information is protected by the Federal Confidentiality of Alcohol and Drug Abuse Patient Records regulations: The Federal rules restrict any use of the information to criminally investigate or prosecute any alcohol or drug abuse patient.[facility] HospitalIn the event this information is protected by the Federal Confidentiality of Alcohol and Drug Abuse Patient Records regulations: The Federal rules restrict any use of the information to criminally investigate or prosecute any alcohol or drug abuse patient.[facility] HospitalIn the event this information is protected by the Federal Confidentiality of Alcohol and Drug Abuse Patient Records regulations: The Federal rules restrict any use of the information to criminally investigate or prosecute any alcohol or drug abuse patient.[facility] HospitalIn the event this information is protected by the Federal Confidentiality of Alcohol and Drug Abuse Patient Records regulations: The Federal rules restrict any use of the information to criminally investigate or prosecute any alcohol or drug abuse patient.[facility] HospitalIn the event this information is protected by the Federal Confidentiality of Alcohol and Drug Abuse Patient Records regulations: The Federal rules restrict any use of the information to criminally investigate or prosecute any alcohol or drug abuse patient.[facility] ClinicIn the event this information is protected by the Federal Confidentiality of Alcohol and Drug Abuse Patient Records regulations: The Federal rules restrict any use of the information to criminally investigate or prosecute any alcohol or drug abuse patient.[facility] HospitalIn the event this information is protected by the Federal Confidentiality of Alcohol and Drug Abuse Patient Records regulations: The Federal rules restrict any use of the information to criminally investigate or prosecute any alcohol or drug abuse patient.[facility] HospitalIn the event this information is protected by the Federal Confidentiality of Alcohol and Drug Abuse Patient Records regulations: The Federal rules restrict any use of the information to criminally investigate or prosecute any alcohol or drug abuse patient.[facility] HospitalIn the event this information is protected by the Federal Confidentiality of Alcohol and Drug Abuse Patient Records regulations: The Federal rules restrict any use of the information to criminally investigate or prosecute any alcohol or drug abuse patient.[facility] HospitalIn the event this information is protected by the Federal Confidentiality of Alcohol and Drug Abuse Patient Records regulations: The Federal rules restrict any use of the information to criminally investigate or prosecute any alcohol or drug abuse patient.[facility] HospitalIn the event this information is protected by the Federal Confidentiality of Alcohol and Drug Abuse Patient Records regulations: The Federal rules restrict any use of the information to criminally investigate or prosecute any alcohol or drug abuse patient.[facility] HospitalIn the event this information is protected by the Federal Confidentiality of Alcohol and Drug Abuse Patient Records regulations: The Federal rules restrict any use of the information to criminally investigate or prosecute any alcohol or drug abuse patient.[facility] HospitalIn the event this information is protected by the Federal Confidentiality of Alcohol and Drug Abuse Patient Records regulations: The Federal rules restrict any use of the information to criminally investigate or prosecute any alcohol or drug abuse patient.[facility] HospitalIn the event this information is protected by the Federal Confidentiality of Alcohol and Drug Abuse Patient Records regulations: The Federal rules restrict any use of the information to criminally investigate or prosecute any alcohol or drug abuse patient.[facility] HospitalIn the event this information is protected by the Federal Confidentiality of Alcohol and Drug Abuse Patient Records regulations: The Federal rules restrict any use of the information to criminally investigate or prosecute any alcohol or drug abuse patient.[facility] HospitalIn the event this information is protected by the Federal Confidentiality of Alcohol and Drug Abuse Patient Records regulations: The Federal rules restrict any use of the information to criminally investigate or prosecute any alcohol or drug abuse patient.[facility] HospitalIn the event this information is protected by the Federal Confidentiality of Alcohol and Drug Abuse Patient Records regulations: The Federal rules restrict any use of the information to criminally investigate or prosecute any alcohol or drug abuse patient.[facility] HospitalIn the event this information is protected by the Federal Confidentiality of Alcohol and Drug Abuse Patient Records regulations: The Federal rules restrict any use of the information to criminally investigate or prosecute any alcohol or drug abuse patient.[facility] HospitalIn the event this information is protected by the Federal Confidentiality of Alcohol and Drug Abuse Patient Records regulations: The Federal rules restrict any use of the information to criminally investigate or prosecute any alcohol or drug abuse patient.[facility] HospitalIn the event this information is protected by the Federal Confidentiality of Alcohol and Drug Abuse Patient Records regulations: The Federal rules restrict any use of the information to criminally investigate or prosecute any alcohol or drug abuse patient.[facility] HospitalIn the event this information is protected by the Federal Confidentiality of Alcohol and Drug Abuse Patient Records regulations: The Federal rules restrict any use of the information to criminally investigate or prosecute any alcohol or drug abuse patient.[facility] HospitalIn the event this information is protected by the Federal Confidentiality of Alcohol and Drug Abuse Patient Records regulations: The Federal rules restrict any use of the information to criminally investigate or prosecute any alcohol or drug abuse patient.[facility] HospitalIn the event this information is protected by the Federal Confidentiality of Alcohol and Drug Abuse Patient Records regulations: The Federal rules restrict any use of the information to criminally investigate or prosecute any alcohol or drug abuse patient.[facility] HospitalIn the event this information is protected by the Federal Confidentiality of Alcohol and Drug Abuse Patient Records regulations: The Federal rules restrict any use of the information to criminally investigate or prosecute any alcohol or drug abuse patient.[facility] HospitalIn the event this information is protected by the Federal Confidentiality of Alcohol and Drug Abuse Patient Records regulations: The Federal rules restrict any use of the information to criminally investigate or prosecute any alcohol or drug abuse patient.[facility] HospitalIn the event this information is protected by the Federal Confidentiality of Alcohol and Drug Abuse Patient Records regulations: The Federal rules restrict any use of the information to criminally investigate or prosecute any alcohol or drug abuse patient.[facility] HospitalIn the event this information is protected by the Federal Confidentiality of Alcohol and Drug Abuse Patient Records regulations: The Federal rules restrict any use of the information to criminally investigate or prosecute any alcohol or drug abuse patient.[facility] HospitalIn the event this information is protected by the Federal Confidentiality of Alcohol and Drug Abuse Patient Records regulations: The Federal rules restrict any use of the information to criminally investigate or prosecute any alcohol or drug abuse patient.[facility] HospitalIn the event this information is protected by the Federal Confidentiality of Alcohol and Drug Abuse Patient Records regulations: The Federal rules restrict any use of the information to criminally investigate or prosecute any alcohol or drug abuse patient.[facility] Reason for Visit (unrecogniz ed section and content) Reason Onset Date Comments Refill Request 12/25/2021 Reason Comments Medication Request Reason Comments Refill Request Reason Onset Date Comments Refill Request 03/23/2022 Reason Onset Date Comments Pain 03/30/2022 UTI 03/30/2022 Reason Comments Appointment please make sure she schedules hospital follow up Reason Comments Follow Up E.D. 03/23/22, 03/26 Reason Comments Lab Orders Reason Comments Patient Question Reason Onset Date Comments Transition Of Care 04/27/2022 TCM follow up Reason Comments Follow Up 1 month Reason Comments Medication Problem Glyburide Reason Comments Orders Cologuard not comple gordon Reason Comments Refill Request SEE RX NOTES Reason Comments 6 Month Exam Reason Onset Date Comments Transition Of Care 03/10/2023 Hospital DC, initial outreach Reason Comments Hospital F/U Reason Comments Patient Update Medication update on how it is working with the change in medication -please call her caregiver Demetria Reason Comments Follow Up Discuss reading Reason Comments Blood Sugar Problem Reason Comments Appointment Re: Upcoming appoint ment Reason Comments Patient Question Re: Blood Glucose Mo nitor Reason Onset Date Comments Refill Request 06/02/2023 Reason Onset Date Comments Refill Request 06/23/2023 Reason Comments Medication Problem Reason Onset Date Comments Refill Request 10/14/2023 Reason Onset Date Comments Population Health Navigation Outreach 03/13/2024 [facility] AW[facility] PCSA Reason Comments Diabetic Eye Exam Reason Comments Follow Up Reason Onset Date Comments Fatigue 08/13/2024 Reason Comments Hospital Follow Up Reason Comments Radiology XR Specialty Diagnoses / Procedures Referred By Contac t Referred To Contact XR IMAGING Diagnoses Pain Procedures XR SHOULDER GENERAL 3V OR MORE AP/TRUE AP/OTHER LT X-RAY SHOULDER COMPLET [place] [address] [place] [address] [place] [address] [place] [address] Referral ID Status Reason Start Date Expiration Date V isits Requested Visits Authorized [id number] Closed Auto-Generate d Referral 07/09/2021 08/08/2022 1 1 Reason Comments Results Reason Comments Radio Gen RMP Radiology Service Pr ogress NotePATIENT NAME: Yusuf MedinaMRN: [id number] OF SERVICE: September 17, 2024TIME: 4:30 PMPATIENT IDENTITY VERIFICATION COMPLETED USING TWO (2) IDENTIFIERS: Name and Date of confirmed by patient verbally.FALL SCREENING: Has the patient had 2 falls in the last year or 1 fall with injury or currently using an Ambulatory Assistive Device (Walker, Cane, Wheelchair, Crutches, etc.)? NoPATIENT GENDER DATA: Female. status: : No Br Specialty Diagnoses / Procedures Referred By Contac t Referred To Contact XR IMAGING Diagnoses Right ankle swelling Procedures XR ANKLE GENERAL 3V AP/LAT/OBL RIGHT RADEX ANKLE COMPLETE MINIMUM 3 [place] [address] [place] [id number] Xr Imaging [facility] Referral ID Status Reason Start Date Expiration Date V isits Requested Visits Authorized [id number] Closed Auto-Generate d Referral 09/17/2024 10/17/2025 1 1 Reason Comments Results Suspicion for calcan eal bone fracture Reason Comments Radiology US Specialty Diagnoses / Procedures Referred By Contac t Referred To Contact US IMAGING Diagnoses Right ankle swelling Procedures US DVT LOWER RIGHT DUP-SCAN XTR VEINS UNILATERAL/[place] [address] [place] [address] Us Imaging [facility] Referral ID Status Reason Start Date Expiration Date V isits Requested Visits Authorized [id number] Closed Auto-Generate d Referral 09/18/2024 10/17/2025 1 1 Reason Comments New 8/10 PAIN [facility]STANT A [facility]EL Pain 8/10 PAIN CONSTANT A [facility]EL Specialty Diagnoses / Procedures Referred By Contac t Referred To Contact Orthopedics / ORTHOPAEDIC SURGERY Diagnoses Right ankle swelling Closed nondisplaced fracture of right calcaneus, unspecified portion of calcaneus, initial encounter Procedures CONSULT PANEL TO ORTHOPAEDICS OFFICE/OUTPATIENT [facility] [address] [place] [address] [place] [address] Orth [facility] [address] [place] [address] Referral ID Status Reason Start Date Expiration Date V isits Requested Visits Authorized [id number] Closed PCP Requested Referral 09/18/2024 09/18/2025 1 1 Reason Comments Consult leukocytosis Specialty Diagnoses / Procedures Referred By Contac t Referred To Contact Diagnoses Leukocytosis, unspecified type Procedures CONSULT TO HEMATOLOGY/ONCOLOGY OFFICE/OUTPATIENT [facility] [address] [place] [address] [place] [address] Referral ID Status Reason Start Date Expiration Date V isits Requested Visits Authorized [id number] Closed PCP Requested Referral 09/04/2024 09/04/2025 1 1 Reason Comments Medicare Wellness Exam Reason Comments Follow Up Reason Comments Radio Gen RMP Radiology Service Pr ogress NotePATIENT NAME: Yusuf MedinaMRN: [id number] OF SERVICE: November 01, 2024TIME: 2:15 PMPATIENT IDENTITY VERIFICATION COMPLETED USING TWO (2) IDENTIFIERS: Name and Date of confirmed by patient verbally.FALL SCREENING: Has the patient had 2 falls in the last year or 1 fall with injury or currently using an Ambulatory Assistive Device (Walker, Cane, Wheelchair, Crutches, etc.)? Yes, Patient High Risk for Falls What interventions were put in eulogio Specialty Diagnoses / Procedures Referred By Contac t Referred To Contact XR IMAGING Diagnoses Right ankle swelling Procedures XR FOOT GENERAL 3V AP/LAT/OBL RIGHT RADEX FOOT COMPLETE MINIMUM 3 VIEWS Simone Kevin MD [address] [place] [address] Xr Imaging [facility] Referral ID Status Reason Start Date Expiration Date V isits Requested Visits Authorized [id number] Closed Auto-Generate d Referral 11/01/2024 12/01/2025 1 1 Reason Comments infection on ankle Right ankle looks in fected Specialty Diagnoses / Procedures Referred By Contac t Referred To Contact MR IMAGING Diagnoses Chronic pain of right ankle Procedures MRI ANKLE WO IVCON RIGHT MRI ANY JT LOWER EXTREM W/O CONTRAST Simone Galindo MD [address] [place] [address] Mr Imaging [place] [address] Referral ID Status Reason Start Date Expiration Date V isits Requested Visits Authorized [id number] Closed Auto-Generate d Referral 11/01/2024 12/01/2025 1 1 Reason Comments Appointment Reason Comments CoPat Start Reason Comments Appointment Rheumatology Reason Comments rehab discharge concerns Reason Comments Wound Evaluation Wound Check Right ankle Reason Onset Date Comments Distress Assessment 01/02/2025 Reason Comments New Patient Inflammatory arthrit is Reason Comments CoPat Management FOR IDC USE ONLY Reason Comments Patient Update Reason Comments Wound Check Right Leg Reason Comments Established Patient leukocytosis Anemia Reason Comments Results Lab results Reason Comments Wound Check Right ankle Care Teams (unrecognized sec tion and content) Day Guard Relationship Specialty [place] [address] [place] [address] PCP - General Family Practice 10/05/10 Edenilson Townsend [address] [place] [address] Consulting Optometry 12/07/17 Day Guard Relationship Specialty [place] [address] [place] [address] PCP - General Family Practice 10/05/10 Edenilson Townsend [address] [place] [address] Consulting Optometry 12/07/17 Day Guard Relationship Specialty Start [place] [address] [place] [address] PCP - General Family Practice 10/05/10 Edenilson Townsend [address] [place] [address] Consulting Optometry 12/07/17 Day Guard Relationship Specialty [place] [address] [place] [address] PCP - General Family Practice 10/05/10 Edenilson Townsend [address] [place] [address] Consulting Optometry 12/07/17 José Miguel Swanson, [facility] [address] [place] [address] Transitional Care Pharmacist Pharmacy 03/30/22 04/30/22 Katia Farooq, access database developer Pharmacy Customer Care Specialist 03/30/22 04/29/22 Day Guard Relationship Specialty [place] [address] [place] [address] PCP - General Family Practice 10/05/10 Edenilson Townsend [address] [place] [address] Consulting Optometry 12/07/17 José Miguel Swanson, [facility] [address] [place] [address] Transitional Care Pharmacist Pharmacy 03/30/22 04/30/22 Katia Farooq, access database developer Pharmacy Customer Care Specialist 03/30/22 04/29/22 Day Guard Relationship Specialty [place] [address] [place] [address] PCP - General Family Practice 10/05/10 Edenilson Townsend [address] [place] [address] Consulting Optometry 12/07/17 José Miguel Swanson, [facility] [address] [place] [address] Transitional Care Pharmacist Pharmacy 03/30/22 04/30/22 Katia Farooq, access database developer Pharmacy Customer Care Specialist 03/30/22 04/29/22 Day Guard Relationship Specialty [place] [address] [place] [address] PCP - General Family Practice 10/05/10 Edenilson Townsend [address] [place] [address] Consulting Optometry 12/07/17 [facility] [address] [place] [address] Transitional Care Pharmacist Pharmacy 03/30/22 04/30/22 Katia Farooq, access database developer Pharmacy Customer Care Specialist 03/30/22 04/29/22 Day Guard Relationship Specialty [place] [address] [place] [address] PCP - General Family Practice 10/05/10 Edenilson Townsend [address] [place] [address] Consulting Optometry 12/07/17 [facility] [address] [place] [address] Transitional Care Pharmacist Pharmacy 03/30/22 04/30/22 Katia Farooq, access database developer Pharmacy Customer Care Specialist 03/30/22 04/29/22 Day Guard Relationship Specialty Start [place] [address] [place] [address] PCP - General Family Practice 10/05/10 Edenilson Townsend [address] [place] [address] Consulting Optometry 12/07/17 Day Guard Relationship Specialty [place] [address] [facility] [address] PCP - General Family Practice 10/05/10 Edenilson Townsend [address] [place] [address] Consulting Optometry 12/07/17 Day Guard Relationship Specialty [place] [address] [facility] [address] PCP - General Family Practice 10/05/10 Edenilson Townsend [address] [place] [address] Consulting Optometry 12/07/17 Day Guard Relationship Specialty [place] [address] [facility] [address] PCP - General Family Medicine 10/05/10 Edenilson Townsend [address] [facility] [place] [address] Consulting Optometry 12/07/17 Day Guard Relationship Specialty [place] [address] [facility] [place] [address] PCP - General Family Medicine 10/05/10 Edenilson Townsend [address] [place] [address] Consulting Optometry 12/07/17 Day Guard Relationship Specialty [place] [address] [facility] [place] [address] PCP - General Family Medicine 10/05/10 Edenilson Townsend [address] [place] [address] Consulting Optometry 12/07/17 Day Guard Relationship Specialty [place] [address] [facility] [place] [address] PCP - General Family Medicine 10/05/10 Edenilson Townsend [address] [place] [address] Consulting Optometry 12/07/17 Day Guard Relationship Specialty [place] [address] [place] [address] PCP - General Family Medicine 10/05/10 Edenilson Townsend [address] [place] [address] Consulting Optometry 12/07/17 [place] [address] [place] [address] [facility] Customer Care Specialist 03/10/23 04/08/23 Day Guard Relationship Specialty [place] [address] [place] [address] PCP - General Family Medicine 10/05/10 Edenilson Townsend [address] [place] [address] Consulting Optometry 12/07/17 [place] [address] [place] [address] Primary Care Pharmacy Customer Care Specialist 03/10/23 04/08/23 Day Guard Relationship Specialty [place] [address] [place] [address] PCP - General Family Medicine 10/05/10 Edenilson Townsend [address] [place] [address] Consulting Optometry 12/07/17 [place] [address] [place] [address] [facility] Care Pharmacy Customer Care Specialist 03/10/23 04/08/23 Day Guard Relationship Specialty [place] [address] [place] [address] PCP - General Family Medicine 10/05/10 Edenilson Townsend [address] [place] [address] Consulting Optometry 12/07/17 [place] [address] [place] [address] Primary Care Pharmacy Customer Care Specialist 03/10/23 04/08/23 Day Guard Relationship Specialty [place] [address] [place] [address] PCP - General Family Medicine 10/05/10 Edenilson Townsend [address] [place] [address] Consulting Optometry 12/07/17 Day Guard Relationship Specialty [place] [address] [place] [address] PCP - General Family Medicine 10/05/10 Edenilson Townsend [address] [place] [address] Consulting Optometry 12/07/17 Day Guard Relationship Specialty [place] [address] [facility] [place] [address] PCP - General Family Medicine 10/05/10 Edenilson Townsend [address] [place] [address] Consulting Optometry 12/07/17 Day Guard Relationship Specialty [place] [address] [place] [address] PCP - General Family Medicine 10/05/10 Edenilson Townsend [address] [place] [address] Consulting Optometry 12/07/17 Day Guard Relationship Specialty [place] [address] [place] [address] PCP - General Family Medicine 10/05/10 Edenilson Townsend [address] [place] [address] Consulting Optometry 12/07/17 Day Guard Relationship Specialty [place] [address] [place] [address] PCP - General Family Medicine 10/05/10 Edenilson Townsend [address] [place] [address] Consulting Optometry 12/07/17 Day Guard Relationship Specialty [place] [address] [place] [address] PCP - General Family Medicine 10/05/10 [place] [address] [place] [address] [place] [address] Consulting Optometry 12/07/17 Day Guard Relationship Specialty [place] [address] [place] [address] PCP - General Family Medicine 10/05/10 Edenilson Townsend OD [address] [place] [address] Consulting Optometry 12/07/17 Day Guard Relationship Specialty [place] [address] [place] [address] PCP - General Family Medicine 10/05/10 Edenilson Townsend OD [address] [place] [address] Consulting Optometry 12/07/17 Day Guard Relationship Specialty [place] [address] [place] [address] PCP - General Family Medicine 10/05/10 Edenilson Townsend [address] [place] [address] Consulting Optometry 12/07/17 Day Guard Relationship Specialty [place] [address] [place] [address] PCP - General Family Medicine 10/05/10 Edenilson Townsend OD [address] [place] [address] Consulting Optometry 12/07/17 Day Guard Relationship Specialty [place] [address] [place] [address] PCP - General Family Medicine 10/05/10 Edenilson Townsend OD [address] [place] [address] Consulting Optometry 12/07/17 Day Guard Relationship Specialty [place] [address] [place] [address] PCP - General Family Medicine 10/05/10 Edenilson Townsend OD [address] [place] [address] Consulting Optometry 12/07/17 Day Guard Relationship Specialty [place] [address] [place] [address] PCP - General Family Medicine 10/05/10 Edenilson Townsend, OD [address] [place] [address] Consulting Optometry 12/07/17 Day Guard Relationship Specialty [place] [address] [place] [address] PCP - General Family Medicine 10/05/10 Edenilson Townsend, OD [address] [place] [address] Consulting Optometry 12/07/17 Day Guard Relationship Specialty [place] [address] [place] [address] PCP - General Family Medicine 10/05/10 Edenilson Townsend, OD [address] [place] [address] Consulting Optometry 12/07/17 Day Guard Relationship Specialty [place] [address] [place] [address] PCP - General Family Medicine 10/05/10 Edenilson Townsend, OD [address] [place] [address] Consulting Optometry 12/07/17 Day Guard Relationship Specialty [place] [address] [place] [address] PCP - General Family Medicine 10/05/10 Edenilson Townsend OD [address] [place] [address] Consulting Optometry 12/07/17 Day Guard Relationship Specialty [place] [address] [place] [address] PCP - General Family Medicine 10/05/10 Edenilson Townsend OD [address] [place] [address] Consulting Optometry 12/07/17 Day Guard Relationship Specialty [place] [address] [place] [address] PCP - General Family Medicine 10/05/10 Edenilson Townsend OD [address] [place] [address] Consulting Optometry 12/07/17 Day Guard Relationship Specialty [place] [address] [place] [address] PCP - General Family Medicine 10/05/10 Edenilson Townsend OD [address] [place] [address] Consulting Optometry 12/07/17 Day Guard Relationship Specialty [place] [address] [place] [address] PCP - General Family Medicine 10/05/10 Edenilson Townsend OD [address] [place] [address] Consulting Optometry 12/07/17 Day Guard Relationship Specialty [place] [address] [place] [address] PCP - General Family Medicine 10/05/10 Edenilson Townsend OD [address] [place] [address] Consulting Optometry 12/07/17 Day Guard Relationship Specialty [place] [address] [place] [address] PCP - General Family Medicine 10/05/10 Edenilson Townsend OD [address] [place] [address] Consulting Optometry 12/07/17 Day Guard Relationship Specialty Start [place] [address] [place] [address] PCP - General Family Medicine 10/05/10 Edenilson Townsend OD [address] [place] [address] Consulting Optometry 12/07/17 Day Guard Relationship Specialty [place] [address] [place] [address] PCP - General Family Medicine 10/05/10 Edenilson Townsend OD [address] [place] [address] Consulting Optometry 12/07/17 Cinthia Ponce PLANER TAILER.[employer] [address] [place] [address] Staffing Coordinator Family Medicine 10/21/24 Willie Kaur APRN.[employer] [address] [facility] [place] [address] Staffing Coordinator Family Medicine 10/21/24 Day Guard Relationship Specialty [place] [address] [place] [address] PCP - General Family Medicine 10/05/10 Edenilson Townsend, CHETNA [address] [place] [address] Consulting Optometry 12/07/17 Cinthai Ponce [employer]ER [employer]ER[employer] [address] [place] [address] Staffing Coordinator Family Medicine 10/21/24 Willie Kaur PLANER TAILER.[employer] [address] [facility] [place] [address] Staffing Coordinator Family [facility] 10/21/24 Day Guard Relationship Specialty [place] [address] [place] [address] PCP - General Family Medicine 10/05/10 Edenilson Townsend, CHETNA [address] [place] [address] Consulting Optometry 12/07/17 Cinthia Ponce PLANER TAILER[employer] [address] [place] [address] Staffing Coordinator Family Medicine 10/21/24 Willie Kaur APRN.[employer] [address] [facility] [place] [address] Staffing Coordinator Family Medicine 10/21/24 Day Guard Relationship Specialty Start [place] [address] [place] [address] PCP - General Family Medicine 10/05/10 Edenilson Townsend OD [address] [place] [address] Consulting Optometry 12/07/17 Cinthia Ponce [employer]ER [employer]ER[employer] [address] [place] [address] Staffing Coordinator Family [facility] 10/21/24 Willie Kaur, PL[employer]ER [employer]ER.[employer] [address] [place] [address] Staffing Coordinator Family [facility] 10/21/24 Day Guard Relationship Specialty [place] [address] [place] [address] PCP - General Family Medicine 10/05/10 Edenilson Townsend OD [address] [place] [address] Consulting Optometry 12/07/17 Cinthia Ponce, [employer]ER [employer]ER[employer] [address] [place] [address] Staffing Coordinator Family Medicine 10/21/24 Willie Kaur PL[employer]ER [employer] [address] [facility] [place] [address] Staffing Coordinator Family Medicine 10/21/24 Day Guard Relationship Specialty Start [place] [address] [place] [address] PCP - General Family Medicine 10/05/10 Edenilson Townsend, CHETNA [address] [place] [address] Consulting Optometry 12/07/17 Cinthia Ponce, PLANER TAILER[employer] [address] [place] [address] Staffing Coordinator Family Medicine 10/21/24 Willie Kaur, PLANER TA[employer]ER.[employer] 11481 [facility] [place] [address] Staffing Coordinator Family Medicine 10/21/24 Day Guard Relationship Specialty Start [place] [address] [place] [address] PCP - General Family Medicine 10/05/10 Edenilson Townsend, CHETNA [address] [place] [address] Consulting Optometry 12/07/17 Cinthia Ponce PLANER TAILER.[employer] [address] [place] [address] Staffing Coordinator Family Medicine 10/21/24 Willie Kaur, PL[employer]ER [employer]ER[employer] [address] [place] [address] Staffing Coordinator Family Medicine 10/21/24 Day Guard Relationship Specialty [place] [address] [place] [address] PCP - General Family Medicine 10/05/10 Edenilson Townsend, OD [address] [place] [address] Consulting Optometry 12/07/17 Cinthia Ponce, PL[employer]ER [employer]ER[employer] [address] [place] [address] Staffing Coordinator Family Medicine 10/21/24 Willie Kaur, PLANER TAILER[employer] [address] [place] [address] Staffing Coordinator Family Medicine 10/21/24 Day Guard Relationship Specialty [place] [address] [place] [address] PCP - General Family Medicine 10/05/10 Edenilson Townsend, OD [address] [place] [address] Consulting Optometry 12/07/17 Cinthia Ponce, PLANER TAILER.[employer] [address] [place] [address] Staffing Coordinator Family Medicine 10/21/24 Willie Kaur, PL[employer]ER [employer]ER[employer] [address] [place] [address] Staffing Coordinator Family Medicine 10/21/24 Day Guard Relationship Specialty Start [place] [address] [place] [address] PCP - General Family Medicine 10/05/10 Edenilson Townsend, OD [address] [place] [address] Consulting Optometry 12/07/17 Cinthia Ponce, PL[employer]ER [employer]ER[employer] [address] [place] [address] Staffing Coordinator Family Medicine 10/21/24 Willie Kaur, PL[employer]ER [employer]ER[employer] [address] [place] [address] Staffing Coordinator Family Medicine 10/21/24 Day Guard Relationship Specialty Start [place] [address] [place] [address] PCP - General Family Medicine 10/05/10 Edenilson Townsend, OD [address] [place] [address] Consulting Optometry 12/07/17 Cinthia Ponce, PLANER [employer]ER[employer] [id number] [place] [address] Staffing Coordinator Family Medicine 10/21/24 Willie Kaur PL[employer]ER [employer]ER[employer] [address] [place] [address] Staffing Coordinator Family Medicine 10/21/24 Day Guard Relationship Specialty Start [place] [address] [place] [address] PCP - General Family Medicine 10/05/10 Edenilson Townsend, CHETNA [address] [place] [address] Consulting Optometry 12/07/17 Cinthia Ponce, PL[employer]ER [employer]ER[employer] [address] [place] [address] Staffing Coordinator Family Medicine 10/21/24 Willie Kaur, PLANER [employer]ER.[employer] [address] [place] [address] Staffing Coordinator Family Medicine 10/21/24 Day Guard Relationship Specialty [place] [address] [place] [address] PCP - General Family Medicine 10/05/10 Edenilson Townsend [address] [place] [address] Consulting Optometry 12/07/17 Cinthia Ponce, PL[employer]ER [employer]ER[employer] [address] [place] [address] Staffing Coordinator Family Medicine 10/21/24 Willie Kaur, PL[employer]ER [employer]ER[employer] [address] [place] [address] Staffing Coordinator Family Medicine 10/21/24 Day Guard Relationship Specialty Start [place] [address] [place] [address] PCP - General Family Medicine 10/05/10 Edenilson Townsend [address] [place] [address] Consulting Optometry 12/07/17 Cinthia Ponce, PLANER TAILER.[employer] [address] [place] [address] Staffing Coordinator Family Medicine 10/21/24 Willie Kaur, PL[employer]ER [employer]ER.[employer] [address] [place] [address] Staffing Coordinator Family Medicine 10/21/24 Day Guard Relationship Specialty Start [place] [address] [place] [address] PCP - General Family Medicine 10/05/10 Edenilson Townsend, CHETNA [address] [place] [address] Consulting Optometry 12/07/17 Cinthia Ponce, PL[employer]ER [employer]ER[employer] [address] [place] [address] Staffing Coordinator Family Medicine 10/21/24 Willie Kaur, PL[employer]ER [employer]ER[employer] [address] [place] [address] Staffing Coordinator Family Medicine 10/21/24 Day Guard Relationship Specialty Start [place] [address] [place] [address] PCP - General Family Medicine 10/05/10 Edenilson Townsend, CHETNA [address] [place] [address] Consulting Optometry 12/07/17 Cinthia Ponce PLANER TAILER.[employer] [address] [place] [address] Staffing Coordinator Family Medicine 10/21/24 Willie Kaur [employer]ER [employer] [address] [place] [address] Staffing Coordinator Family Medicine 10/21/24 Day Guard Relationship Specialty Start [place] [address] [place] [address] PCP - General Family Medicine 10/05/10 Edenilson Townsend [address] [place] [address] Consulting Optometry 12/07/17 Cinthia Ponce, [employer]ER [employer]ER[employer] [address] [place] [address] Staffing Coordinator Family Medicine 10/21/24 Willie Kaur, PL[employer]ER [employer]ER[employer] [address] [place] [address] Staffing Coordinator Family Medicine 10/21/24 Day Guard Relationship Specialty Start [place] [address] [place] [address] PCP - General Family Medicine 10/05/10 Edenilson Townsend [address] [place] [address] Consulting Optometry 12/07/17 Cinthia Ponce [employer]ER [employer] [address] [place] [address] Staffing Coordinator Family Medicine 10/21/24 Willie Kaur, [employer]ER [employer] [address] [facility] [place] [address] Staffing Coordinator Family Medicine 10/21/24 Day Guard Relationship Specialty Start [place] [address] [place] [address] PCP - General Family Medicine 10/05/10 Edenilson Townsend [address] [place] [address] Consulting Optometry 12/07/17 Cinthia Ponce PL[employer]ER [employer]ER[employer] [address] [place] [address] Staffing Coordinator Family Medicine 10/21/24 Willie Kaur, PL[employer]ER [employer] [address] [place] [address] Staffing Coordinator Family [facility] 10/21/24 Day Guard Relationship Specialty Start [place] [address] [place] [address] PCP - General Family Medicine 10/05/10 Edenilson Townsend [address] [place] [address] Consulting Optometry 12/07/17 Cinthia Ponce [employer]ER [employer] [address] [place] [address] Staffing Coordinator Family Medicine 10/21/24 Willie Kaur, [employer]ER [employer]ER[employer] [address] [place] [address] [facility] 10/21/24 Team Status: Active Member Role Status Dates Mario RODAS MD Attending Provider Active S tart: December 17, 2024 Mario RODAS MD Referring Provider Active S tart: December 17, 2024 Team Status: Active Member Role Status Dates Mario RODAS MD Attending Provider Active S tart: December 24, 2024 Mario RODAS MD Referring Provider Active S tart: December 24, 2024 Team Status: Active Member Role Status Dates Mario ROADS MD Attending Provider Active S tart: 2024 Team Status: Active Member Role Status Dates Mario RODAS MD Attending Provider Active S tart: January 07, 2025 Team Status: Inactive Member Role Status Dates Mario RODAS MD Attending Provider Active S tart: January 15, 2025 End: January 15, 2025 Team Status: Active Member Role Status Dates Mario RODAS MD Attending Provider Active S tart: February 04, 2025 Day Guard Relationship Specialty [place] [address] [place] [address] PCP - General Family Medicine 10/05/10 Edenilson Townsend [address] [place] [address] Consulting Optometry 12/07/17 Cinthia Ponce, [employer]ER [employer]ER[employer] [address] [place] [address] [facility] 10/21/24 Willie Kaur, [employer]ER [employer]ER[employer] [address] [place] [address] Staffing Coordinator Family [facility] 10/21/24 Team Status: Inactive Member Role Status Dates Mario RODAS MD Attending Provider Active S tart: February 04, 2025 End: February 04, 2025 Team Status: Inactive Member Role Status Dates Mario RODAS MD Attending Provider Active S tart: March 04, 2025 End: March 04, 2025 Team Status: Active Member Role Status Rain RODAS MD Attending Provider Active S tart: March 12, 2025 Team Status: Inactive Member Role Status Rain RODAS MD Attending Provider Active S tart: March 12, 2025 End: March 12, 2025 Mario RODAS MD Referring Provider Active S tart: March 12, 2025 End: March 12, 2025 Team Status: Inactive Member Role Status Rain RODAS MD Attending Provider Active S tart: April 01, 2025 End: April 01, 2025 Team Status: Active Member Role Status Dates Mario RODAS MD Attending Provider Active S tart: April 10, 2025 Goals (unrecognized section and content) Goals may be documented in a n alternate sectionGoals may be documented in an alternate sectionGoals may be documented in an alternate sectionGoals may be documented in an alternate section FOR RECORDS PERTAINING TO PATIENTS WHO ARE OR HAVE BEEN ENROLLED IN A CHEMICAL DEPENDENCY/SUBSTANCEABUSE PROGRAM, SOME INFORMATION MAY BE OMITTED. This clinical summary was aggregated from multiple sources. Caution should be exercised in using it in the provision of clinical care. This summary normalizes information from multiple sources, and as a consequence, information in this document may materially change the coding, format and clinical context of patient data. In addition, data may be omitted in some cases. CLINICAL DECISIONS SHOULD BE BASED ON THE PRIMARY CLINICAL RECORDS. [employer] [facility]. provides no warranty or guarantee of the accuracy or completeness of information in this document.
--- OUTSIDE RECORDS SUMMARY | 2025-04-29 04:52 | XMS RPT_ITS | CCD ---
Author Organization [facility] ion Partnership [facility] Care Team Providers Care Strategic Sourcing Consultant Name Role Phone Migdalia Cramer MD Primary Care Provider Edenilson Townsend Unavailable [phone] [facility] Unavailable Katia Farooq RN Unavailable Unavailabl Migdalia Esparza MD Primary Care Provider Edenilson Townsend Unavailable Migdalia Cramer MD Primary Care Provider Edenilson Townsend Unavailable Lien Hankins RN Unavailable Edenilson Townsend OD Unavailable [phone] Migdalia Cramer MD Primary Care Provider Kris DEFENSIVE LINE COACH.Cinthia JUAN Unavailable Fabrizio DEFENSIVE LINE COACH.Willie JUAN Unavailable MIGDALIA CRAMER Primary Care Unavailable [...] Unavailable PROVIDER, UNKNOWN Primary Care Unavailable GRUPO MENDEZ Referring Unavailable PROVIDER, UNKNOWN Primary Care Unavailable [...] Comment on above: Take 1 capsule by [facility] once daily for 3 doses. colchicine [...] needed. docusate sodium 50 mg / sennosides, penitent[facility] 8.6 mg oral tablet (9 sources) take [...] Comment on above: Take 1 capsule by [facility] once daily. TAKE 1 CAPSULE BY [facility] ONCE DAILY melatonin 3 mg oral capsule [...] disease, without long-term current use of insulin ([facility]) TAKE 1 TABLET BY MOUTH ONCE DAILY 90 tablet 3 06/18/2022 Active Start: 08-19-2020 End: 07-14-2021 pioglitazone (ACTOS) 45 mg t ablet Indications: Type 2 diabetes mellitus with stage 3 chronic kidney disease, without long-term current use of insulin ([facility]) TAKE 1 TABLET BY MOUTH ONCE DAILY 90 tablet 3 07/14/2021 Active Comment on above: TAKE 1 TABLET BY [facility] ONCE DAILY polyethylene glycol 3350 21995 mg powder for oral solution (20 sources) [...] 04-26 CAST,FINE GRAN 0-5 SEEN Normal 0-5 [facility] Comment on above: Order Comment: 107.1 Performed By: #### L 503.6030, L503.0105, L506.0250, L500.4050, L100.0100, L101.9900 #### [facility] [address] [place], [address] CAST,HYALINE 5-10 SEEN Normal 0-5 [facility] Comment on above: Order Comment: 107.1 Performed By: #### L 503.6030, L503.0105, L506.0250, L500.4050, L100.0100, L101.9900 #### [facility] [address] [place], [address] BACTERIA 1+ /hpf Normal None Seen [facility] Comment on above: Order Comment: 107.1 Performed By: #### L 503.6030, L503.0105, L506.0250, L500.4050, L100.0100, L101.9900 #### [facility] [address] [place], [address] EPI,SQUAMOUS 5-10 SEEN Normal 5-10 [facility] Comment on above: Order Comment: 107.1 Performed By: #### L 503.6030, L503.0105, L506.0250, L500.4050, L100.0100, L101.9900 #### [facility] [address] [place], [address] WBC 0-5 SEEN Normal 0-5 [facility] Comment on above: Order Comment: 107.1 Performed By: #### L 503.6030, L503.0105, L506.0250, L500.4050, L100.0100, L101.9900 #### [facility] [address] [place], [address] Mucus Ql (Urine sed) 0 SEEN Normal [facility] Comment on above: Order Comment: 107.1 Performed By: #### L 503.6030, L503.0105, L506.0250, L500.4050, L100.0100, L101.9900 #### [facility] [address] [place], [address] RBC 0 SEEN Normal 0-5 [facility] Comment on above: Order Comment: 107.1 Performed By: #### L 503.6030, L503.0105, L506.0250, L500.4050, L100.0100, L101.9900 #### [facility] [address] [place], [address] Urine Cultureon 04-12-2025 URC 107-1 #2 Probable Proteus species. Below infection level. Escherichia coli [place] Count 50,000-80,000 Gram negative anabell Gram negative [...] TMP SMX Islt HEMANT <=20 S Normal [facility] Comment on above: Performed By: #### L 503.6030, L503.0105, L506.0250, L500.4050, L100.0100, L101.9900 #### [facility] [address] [place], [address] Urinalysis, Completeon 04-11 CAST,HYALINE 0-5 SEEN Normal 0-5 [facility] Comment on above: Order Comment: 107.1 Performed By: #### L 503.6030, L503.0105, L506.0250, L500.4050, L100.0100, L101.9900 #### [facility] [address] [place], [address] BACTERIA 1+ /hpf Normal None Seen [facility] Comment on above: Order Comment: 107.1 Performed By: #### L 503.6030, L503.0105, L506.0250, L500.4050, L100.0100, L101.9900 #### [facility] [address] [place], [address] EPI,SQUAMOUS 0-5 SEEN Normal 5-10 [facility] Comment on above: Order Comment: 107.1 Performed By: #### L 503.6030, L503.0105, L506.0250, L500.4050, L100.0100, L101.9900 #### [facility] [address] [place], [address] RBC 0-5 SEEN Normal 0-5 [facility] Comment on above: Order Comment: 107.1 Performed By: #### L 503.6030, L503.0105, L506.0250, L500.4050, L100.0100, L101.9900 #### [facility] [address] [place], [address] WBC 5-10 SEEN Normal 0-5 [facility] Comment on above: Order Comment: 107.1 Performed By: #### L 503.6030, L503.0105, L506.0250, L500.4050, L100.0100, L101.9900 #### [facility] [address] [place], [place], [address] (990) Mucus Ql (Urine sed) 0 SEEN Normal [facility] Comment on above: Order Comment: 107.1 Performed By: #### L 503.6030, L503.0105, L506.0250, L500.4050, L100.0100, L101.9900 #### [facility] [address] [place], [place], [phone] (005) Bilirubin Test strip Ql (U)O rdered By: Mario Mak on 04-10-2025 Bilirubin Ql (U) Negative Negative [facility] Hyaline casts LM.LPF (Urine sed) [#/Area]Ordered By: Mario Mak on 04-10-2025 Hyaline casts (Urine sed) [#/Area] 0 /[LPF] 0-5 [facility] Ketones Test strip Ql (U)Ord ered By: Mario Mak on 04-10-2025 Ketones Ql (U) Negative Negative [facility] Microscopic analysis of urin e for red blood cells (RBC)Ordered By: Mario Mak on 04-10-2025 Microscopic analysis of urine for red blood cells (RBC) 0-5 SEEN /hpf 0-5 [facility] Mucus LM Ql (Urine sed)Order ed By: Mario Mak on 04-10-2025 Mucus Ql (Urine sed) 0 SEEN /hpf [facility] Nitrite Test strip Ql (U)Ord ered By: Mario Mak on 04-10-2025 Nitrite Ql (U) Negative Negative [facility] Protein Test strip Ql (U)Ord ered By: Mario Mak on 04-10-2025 Protein Ql (U) 100 mg/dl High Negative [facility] Squamous epithelial cells de tection in urine sediment by light microscopyOrdered By: Mario Mak on 04-10-2025 Epithelial cells.squamous LM Ql (Urine sed) 0-5 SEEN /hpf 5-10 [facility] Urine clarityOrdered By: Shwetha Mak on 04-10-2025 Clarity (U) Clear Clear [facility] Urine color determinationOrd ered By: Mario Mak on 04-10-2025 Color (U) Yellow Yellow [facility] Urine cultureOrdered By: Shwetha Mak on 04-10-2025 Bacteria identified Cx Nom (U) Escherichia coli Abnormal [facility] Bacteria identified Cx Nom (U) Negative Abnormal [facility] Urine glucose detectionOrder ed By: Mario Mak on 04-10-2025 Glucose Ql (U) Normal mg/dl Normal [facility] Urine leukocyte esterase det ection by dipstickOrdered By: Mario Mak on 04-10-2025 Leukocyte esterase Test strip Ql (U) 100 /ul High Negative [facility] Urine pHOrdered By: Mario reece on 04-10-2025 pH (U) 6.0 [pH] 5.0 - 8.0 [facility] Urine sediment bacteria coun t by microscopy (number/high power field)Ordered By: Mario Mak on 04-10-2025 Bacteria LM.HPF (Urine sed) [#/Area] 1 /[HPF] None Seen [facility] Urine specific gravity measu rementOrdered By: Mario Mak on 04-10-2025 Specific gravity (U) [Rel density] 1.015 1.002-1.030 [facility] Urine urobilinogen measureme ntOrdered By: Mario Mak on 04-10-2025 Urobilinogen Ql (U) Normal mg/dl Normal [facility] White blood cell countOrdere d By: Mario Mak on 04-10-2025 White blood cell count 5-10 SEEN /hpf 0-5 [facility] CRPon 04-01-2025 C-REACTIVE PROT < 3.00 Normal 0.0-3.0 [facility] Comment on above: Order Comment: 107-1 Performed By: #### L 501.6710, L101.9900 #### [facility] [address] [place], [place] [address], [address] Erythrocyte Sed Rateon 04-01 SED RATE 14 mm/hr Normal 0-30 [facility] Comment on above: Order Comment: 107.1 Performed By: #### L 503.6030, L503.0105, L506.0250, L500.4050, L100.0100, L101.9900 #### [facility] [address] [place], [address] Erythrocyte sedimentation ra teOrdered By: Mario Mak on 04-01-2025 ESR (Bld) [Velocity] 14 mm/h 0-30 [facility] Serum or plasma C reactive p rotein measurement (mass/volume)Ordered By: Mario Mak on 04-01-2025 CRP [Mass/Vol] mg/L 0.0-3.0 [facility] Hemoglobin A1c percentageOrd ered By: Mario Mak on 03-12-2025 HbA1c (Bld) [Mass fraction] 7.4 % High <=5.6 [facility] Comment on above: Normal < 5.7 % Predi abetic 5.7 - 6.4 % Diabetic >or= 6.5 % Please note range changes. Order Comment: 107.1 Result Comment: Norm al < 5.7 % Prediabetic 5.7 - 6.4 % Diabetic >or= 6.5 % Please note range changes. Performed By: #### L 503.6030, L503.0105, L506.0250, L500.4050, L100.0100, L101.9900 #### [facility] [address] [place], [place], [id number] CRPon 03-04-2025 C-REACTIVE PROT < 3.00 Normal 0.0-3.0 [facility] Comment on above: Order Comment: 107.1 Performed By: #### L 503.6030, L503.0105, L506.0250, L500.4050, L100.0100, L101.9900 #### [facility] [address] [place], [place], [id number] Erythrocyte Sed Rateon 03-04 SED RATE 12 mm/hr Normal 0-30 [facility] Comment on above: Order Comment: 107.1 Performed By: #### L 503.6030, L503.0105, L506.0250, L500.4050, L100.0100, L101.9900 #### [facility] [address] [place], [address] Erythrocyte sedimentation ra teOrdered By: Mario Mak on 03-04-2025 ESR (Bld) [Velocity] 12 mm/h 0-30 [facility] Serum or plasma C reactive p rotein measurement (mass/volume)Ordered By: Mario Mak on 03-04-2025 CRP [Mass/Vol] mg/L 0.0-3.0 [facility] CNOVon 02-13-2025 CNOV [facility] CNPNon 02-11-2025 JACINTA Telephone (MARJORIE) YUSUF MEDINA ([id number]) 1935 [facility] Date Time Provider Department 02/11/25 TYESHA SINGLETON During your visit today, we recorded the following information about you: Lidia Carbajal LPN 02/11/2025 1:00 PM Signed Received results of labs done on 02/04/2025 from [facility] (abnormal results in bold): sed rate 23 [...] this patient by: CAREGIVER José Miguel Swanson [facility] Problem List As Of Date [...] arthritis [M16.10] (more content not included)... Normal [facility] CRPon 02-04-2025 C-REACTIVE PROT < 3.00 Normal 0.0-3.0 [facility] Comment on above: Order Comment: 107.1 Performed By: #### L 503.6030, L503.0105, L506.0250, L500.4050, L100.0100, L101.9900 #### [facility] [address] [place], [address] CRP [Mass/Vol]Ordered By: Moreno on 02-04-2025 C-Reactive Protein Extended Range < 3.00 mg/L 0.0-3.0 [facility] Erythrocyte Sed Rateon 02-04 SED RATE 23 mm/hr Normal 0-30 [facility] Comment on above: Order Comment: 107.1 Performed By: #### L 503.6030, L503.0105, L506.0250, L500.4050, L100.0100, L101.9900 #### [facility] [address] [place], [place], [id number] Erythrocyte sedimentation ra teOrdered By: Mario Mak on 02-04-2025 ESR (Bld) [Velocity] 23 mm/h 0-30 [facility] Serum or plasma C reactive p rotein measurement (mass/volume)Ordered By: Mario Mak on 02-04-2025 CRP [Mass/Vol] mg/L 0.0-3.0 [facility] CNOVon 01-16-2025 CNOV [facility] Absolute lymphocyte countOrd ered By: Mario Mak on 01-15-2025 Lymphocytes Auto (Unsp spec) [#/Vol] 1.16 10*3/uL 0.83-4.51 [facility] Absolute neutrophil countOrd ered By: Mario Mak on 01-15-2025 Neutrophils (Bld) [#/Vol] 5.9 10*3/uL 2.0-7.7 [facility] Anion gap in Serum or Plasma Ordered By: Mario Mak on 01-15-2025 Anion gap [Moles/Vol] 12 mmol/L 5-[address] [facility] Automated lymphocyte count a s percentage of total leukocytesOrdered By: Mario Mak on 01-15-2025 Lymphocytes/100 WBC Auto (Unsp spec) 14.3 % Low 19-41 [facility] BUN/creatinine ratioOrdered By: Mario Mak on 01-15-2025 Urea nitrogen/Creatinine [Mass ratio] 35.3 mg/mg High 10-20 [facility] Basic Metabolic Profile (BMP )on 01-15-2025 BUN/CRE 35.3 RATIO High 10-20 [facility] Comment on above: Order Comment: 107.1 Performed By: #### L 503.6030, L503.0105, L506.0250, L500.4050, L100.0100, L101.9900 #### [facility] [address] [place], [address] Calcium [Mass/Vol] 9.1 mg/dL Normal 7.6-11.0 [facility] Comment on above: Order Comment: 107.1 Performed By: #### L 503.6030, L503.0105, L506.0250, L500.4050, L100.0100, L101.9900 #### [facility] [address] [place], [address] Chloride [Moles/Vol] 101 mmol/L Normal 98-108 [facility] Comment on above: Order Comment: 107.1 Performed By: #### L 503.6030, L503.0105, L506.0250, L500.4050, L100.0100, L101.9900 #### [facility] [address] [place], [address] CO2 [Moles/Vol] 26.0 mmol/L Normal 21.0-32.0 [facility] Comment on above: Order Comment: 107.1 Performed By: #### L 503.6030, L503.0105, L506.0250, L500.4050, L100.0100, L101.9900 #### [facility] [address] [place], [address] Creatinine [Mass/Vol] 0.76 mg/dL Normal 0.70-1.[address] [facility] Comment on above: Order Comment: 107.1 Performed By: #### L 503.6030, L503.0105, L506.0250, L500.4050, L100.0100, L101.9900 #### [facility] [address] [place], [address] GAP 12 Normal 5-15 [facility] Comment on above: Order Comment: 107.1 Performed By: #### L 503.6030, L503.0105, L506.0250, L500.4050, L100.0100, L101.9900 #### [facility] [address] [place], [address] GFR/1.73 sq M.predicted among non-blacks MDRD (S/P/Bld) [Vol rate/Area] 75 mL/min/{1.73_m2} Normal >60 [facility] Comment on above: Order Comment: 107.1 Result Comment: mL/m in/1.73m2 CKD-EPI Creatinine Equation (2020) Performed By: #### L 503.6030, L503.0105, L506.0250, L500.4050, L100.0100, L101.9900 #### [facility] [address] [place], [address] Glucose [Mass/Vol] 108 mg/dL High 70-99 [facility] Comment on above: Order Comment: 107.1 Performed By: #### L 503.6030, L503.0105, L506.0250, L500.4050, L100.0100, L101.9900 #### [facility] [address] [place], [address] Potassium [Moles/Vol] 4.6 mmol/L Normal 3.3-5.[address] [facility] Comment on above: Order Comment: 107.1 Performed By: #### L 503.6030, L503.0105, L506.0250, L500.4050, L100.0100, L101.9900 #### [facility] [address] [place], [address] Sodium [Moles/Vol] 139 mmol/L Normal 133-145 [facility] Comment on above: Order Comment: 107.1 Performed By: #### L 503.6030, L503.0105, L506.0250, L500.4050, L100.0100, L101.9900 #### [facility] [address] [place], [address] Urea nitrogen [Mass/Vol] 27 mg/dL High 4-19 [facility] Comment on above: Order Comment: 107.1 Performed By: #### L 503.6030, L503.0105, L506.0250, L500.4050, L100.0100, L101.9900 #### [facility] [address] [place], [address] Basophil percentageOrdered B y: Mario Mak on 03-04-2025 Basophils/100 WBC (Bld) 0.5 % 0-1 [facility] CBC W/Diff, Automatedon 03-0 4-2024 Absolute Lymph 1.16 X10 3/uL Normal 0.83-4.51 [facility] Comment on above: Order Comment: 107.1 Performed By: #### L 503.6030, L503.0105, L506.0250, L500.4050, L100.0100, L101.9900 #### [facility] [address] [place], [address] Absolute Neut 5.9 X10 3/uL Normal 2.0-7.7 [facility] Comment on above: Order Comment: 107.1 Performed By: #### L 503.6030, L503.0105, L506.0250, L500.4050, L100.0100, L101.9900 #### [facility] [address] [place], [address] Basophils/100 WBC (Bld) 0.5 % Normal 0-1 [facility] Comment on above: Order Comment: 107.1 Performed By: #### L 503.6030, L503.0105, L506.0250, L500.4050, L100.0100, L101.9900 #### [facility] [address] [place], [address] Eosinophils/100 WBC (Bld) 4.1 % Normal 0-5 [facility] Comment on above: Order Comment: 107.1 Performed By: #### L 503.6030, L503.0105, L506.0250, L500.4050, L100.0100, L101.9900 #### [facility] [address] [place], [address] Erythrocyte distribution width (RBC) [Ratio] 16.0 % High 11.6-14.6 [facility] Comment on above: Order Comment: 107.1 Performed By: #### L 503.6030, L503.0105, L506.0250, L500.4050, L100.0100, L101.9900 #### [facility] [address] [place], [address] Hematocrit (Bld) [Volume fraction] 29.0 % Low 37-47 [facility] Comment on above: Order Comment: 107.1 Performed By: #### L 503.6030, L503.0105, L506.0250, L500.4050, L100.0100, L101.9900 #### [facility] [address] [place], [address] Hemoglobin (Bld) [Mass/Vol] 9.4 g/dL Low 12.0-15.0 [facility] Comment on above: Order Comment: 107.1 Performed By: #### L 503.6030, L503.0105, L506.0250, L500.4050, L100.0100, L101.9900 #### [facility] [address] [place], [address] IG% 1.100 High 0.0-0.9 [facility] Comment on above: Order Comment: 107.1 Result Comment: IG% - Immature Granulocytes (promyelocytes, myelocytes and metamyelocytes) > 1% indicates that a LEFT SHIFT is Present. Performed By: #### L 503.6030, L503.0105, L506.0250, L500.4050, L100.0100, L101.9900 #### [facility] [address] [place], [address] Lymphocytes/100 WBC (Bld) 14.3 % Low 19-41 [facility] Comment on above: Order Comment: 107.1 Performed By: #### L 503.6030, L503.0105, L506.0250, L500.4050, L100.0100, L101.9900 #### [facility] [address] [place], [address] MCH (RBC) [Entitic mass] 29.5 pg Normal 27.0-32.0 [facility] Comment on above: Order Comment: 107.1 Performed By: #### L 503.6030, L503.0105, L506.0250, L500.4050, L100.0100, L101.9900 #### [facility] [address] [place], [address] MCHC (RBC) [Mass/Vol] 32.4 g/dL Normal 32-[address] [facility] Comment on above: Order Comment: 107.1 Performed By: #### L 503.6030, L503.0105, L506.0250, L500.4050, L100.0100, L101.9900 #### [facility] [address] [place], [address] MCV (RBC) [Entitic vol] 90.9 fL Normal 81-99 [facility] Comment on above: Order Comment: 107.1 Performed By: #### L 503.6030, L503.0105, L506.0250, L500.4050, L100.0100, L101.9900 #### [facility] [address] [place], [address] Monocytes/100 WBC (Bld) 8.1 % Normal 0-10 [facility] Comment on above: Order Comment: 107.1 Performed By: #### L 503.6030, L503.0105, L506.0250, L500.4050, L100.0100, L101.9900 #### [facility] [address] [place], [address] Neutrophils/100 WBC (Bld) 71.9 % High 47-70 [facility] Comment on above: Order Comment: 107.1 Performed By: #### L 503.6030, L503.0105, L506.0250, L500.4050, L100.0100, L101.9900 #### [facility] [address] [place], [address] Nucleated RBC (Bld) [#/Vol] 0 10*3/uL Normal 0-5 [facility] Comment on above: Order Comment: 107.1 Performed By: #### L 503.6030, L503.0105, L506.0250, L500.4050, L100.0100, L101.9900 #### [facility] [address] [place], [address] Platelet mean volume (Bld) [Entitic vol] 9.4 fL Normal 6.2-12.0 [facility] Comment on above: Order Comment: 107.1 Performed By: #### L 503.6030, L503.0105, L506.0250, L500.4050, L100.0100, L101.9900 #### [facility] [address] [place], [address] Platelets (Bld) [#/Vol] 390 10*3/uL Normal 150-450 [facility] Comment on above: Order Comment: 107.1 Performed By: #### L 503.6030, L503.0105, L506.0250, L500.4050, L100.0100, L101.9900 #### [facility] [address] [place], [address] RBC (Bld) [#/Vol] 3.19 10*6/uL Low 4.2-5.[address] [facility] Comment on above: Order Comment: 107.1 Performed By: #### L 503.6030, L503.0105, L506.0250, L500.4050, L100.0100, L101.9900 #### [facility] [address] [place], [address] RDW SD 53.4 fl High 35.1-43.9 [facility] Comment on above: Order Comment: 107.1 Performed By: #### L 503.6030, L503.0105, L506.0250, L500.4050, L100.0100, L101.9900 #### [facility] [address] [place], [address] WBC (Bld) [#/Vol] 8.1 10*3/uL Normal 4.4-11.0 [facility] Comment on above: Order Comment: 107.1 Performed By: #### L 503.6030, L503.0105, L506.0250, L500.4050, L100.0100, L101.9900 #### [facility] [address] [facility] [address] [address] [place], [place], [address] (898) Carbon dioxide, total [Moles /volume] in Central venous bloodOrdered By: Mario Mak on 01-15-2025 CO2 [Moles/Vol] 26.0 mmol/L 21.0-32.0 [facility] Chloride assayOrdered By: Moreno on 01-15-2025 Chloride [Moles/Vol] 101 mmol/L 98-108 [facility] Eosinophil percentageOrdered By: Mario Mak on 01-15-2025 Eosinophils/100 WBC (Bld) 4.1 % 0-5 [facility] Erythrocyte distribution wid th (RBC) [Ratio]Ordered By: Mario Mak on 01-15-2025 Erythrocyte distribution width (RBC) [Entitic vol] 53.4 fL High 35.1-43.9 [facility] Erythrocyte distribution wid th ratioOrdered By: Mario Mak on 01-15-2025 Erythrocyte distribution width (RBC) [Ratio] 16.0 % High 11.6-14.6 [facility] Erythrocyte distribution wid th standard deviationOrdered By: Mario Mak on 01-15-2025 Erythrocyte distribution width (RBC) [Ratio] 53.4 fl High 35.1-43.9 [facility] GFR/1.73 sq M.predicted ida g non-blacks MDRD (S/P/Bld) [Vol rate/Area]Ordered By: Mario Mak on 01-15-2025 Estimated GFR (MDRD) Non-Af Amer 75 >60 [facility] Comment on above: mL/min/1.73m2 CKD-EP I Creatinine Equation (2020) Glomerular filtration rate ( GFR) estimation/1.73 sq m using serum, plasma, or whole bOrdered By: Mario Mak on 01-15-2025 GFR/1.73 sq M.predicted among non-blacks MDRD (S/P/Bld) [Vol rate/Area] 75 mL/min/{1.73_m2} >60 [facility] Comment on above: mL/min/1.73m2 CKD-EP I Creatinine Equation (2020) Hematocrit Auto (Bld) [Volum e fraction]Ordered By: Mario Mak on 01-15-2025 Hematocrit (Bld) [Volume fraction] 29.0 % Low 37-47 [facility] Hemoglobin measurementOrdere d By: Mario Mak on 01-15-2025 Hemoglobin (Bld) [Mass/Vol] 9.4 g/dL Low 12.0-15.0 [facility] Immature granulocytes/100 WB C Auto (Bld)Ordered By: Mario Mak on 01-15-2025 Immature granulocytes/100 WBC (Bld) 1.100 % High 0.0-0.9 [facility] Comment on above: IG% - Immature Granu locytes (promyelocytes, myelocytes and metamyelocytes) > 1% indicates that a LEFT SHIFT is Present. Lymphocytes Auto (Unsp spec) [#/Vol]Ordered By: Mario Mak on 01-15-2025 Lymphocytes (Bld) [#/Vol] 1.16 10*3/uL 0.83-4.51 [facility] Lymphocytes/100 WBC Auto (Un sp spec)Ordered By: Mario Mak on 01-15-2025 Lymphocytes/100 WBC (Bld) 14.3 % Low 19-41 [facility] MCV (mean corpuscular volume ) determinationOrdered By: Mario Mak on 01-15-2025 MCV (RBC) [Entitic vol] 90.9 fL 81-99 [facility] Mean corpuscular hemoglobin (MCH) determinationOrdered By: Mario Mak on 01-15-2025 MCH (RBC) [Entitic mass] 29.5 pg 27.0-32.0 [facility] Mean corpuscular hemoglobin concentration (MCHC) determinationOrdered By: Mario Mak on 01-15-2025 MCHC (RBC) [Mass/Vol] 32.4 g/dL 32-[address] [facility] Mean platelet volume determi nationOrdered By: Mario Mak on 01-15-2025 Platelet mean volume (Bld) [Entitic vol] 9.4 fL 6.2-12.0 [facility] Monocyte percentageOrdered B y: Mario Mak on 01-15-2025 Monocytes/100 WBC (Bld) 8.1 % 0-10 [facility] Neutrophil percentageOrdered By: Mario Mak on 01-15-2025 Neutrophils/100 WBC (Bld) 71.9 % High 47-70 [facility] Nucleated red blood cell per centageOrdered By: Mario Mak on 01-15-2025 Nucleated RBC/100 WBC (Bld) [Ratio] 0 % 0-5 [facility] Platelet countOrdered By: Moreno on 01-15-2025 Platelets (Bld) [#/Vol] 390 10*3/uL 150-450 [facility] Potassium (Unsp spec) [Mass/ Vol]Ordered By: Mario Mak on 01-15-2025 Potassium [Moles/Vol] 4.6 mmol/L 3.3-5.[address] [facility] Potassium measurement (mass/ volume)Ordered By: Mario Mak on 01-15-2025 Potassium (Unsp spec) [Mass/Vol] 4.6 mmol/L 3.3-5.1 [facility] RBC Auto (Bld) [#/Vol]Ordere d By: Mario Mak on 01-15-2025 RBC (Bld) [#/Vol] 3.19 10*6/uL Low 4.2-5.[address] [facility] Serum creatinine measurement (mass/volume)Ordered By: Mario Mak on 01-15-2025 Creatinine [Mass/Vol] 0.76 mg/dL 0.70-1.[address] [facility] Serum glucose measurement (m ass/volume)Ordered By: Mario Mak on 01-15-2025 Glucose [Mass/Vol] 108 mg/dL High 70-99 [facility] Serum or plasma calcium roma urement (mass/volume)Ordered By: Mario Mak on 01-15-2025 Calcium [Mass/Vol] 9.1 mg/dL 7.6-11.0 [facility] Serum or plasma urea nitroge n measurement (mass/volume)Ordered By: Mario Mak on 01-15-2025 Urea nitrogen [Mass/Vol] 27 mg/dL High 4-19 [facility] Sodium levelOrdered By: Mario Mak on 01-15-2025 Sodium [Moles/Vol] 139 mmol/L 133-145 [facility] White blood cell (WBC) count Ordered By: Mario Mak on 01-15-2025 WBC (Bld) [#/Vol] 8.1 10*3/uL 4.4-11.0 [facility] CNOVon 01-08-2025 CNOV [facility] Absolute lymphocyte countOrd ered By: Mario Mak on 01-07-2025 Lymphocytes Auto (Unsp spec) [#/Vol] 0.98 10*3/uL 0.83-4.51 [facility] Absolute neutrophil countOrd ered By: Mario Mak on 01-07-2025 Neutrophils (Bld) [#/Vol] 5.7 10*3/uL 2.0-7.7 [facility] Albumin to globulin ratioOrd ered By: Mario Mak on 01-07-2025 Albumin/Globulin [Mass ratio] 0.6 {ratio} Low 0.9-2.4 [facility] Automated lymphocyte count a s percentage of total leukocytesOrdered By: Mario Mak on 01-07-2025 Lymphocytes/100 WBC Auto (Unsp spec) 12.6 % Low 19-41 [facility] Basophil percentageOrdered B y: Mario Mak on 01-07-2025 Basophils/100 WBC (Bld) 0.5 % 0-1 [facility] Bilirubin, totalOrdered By: Mario Mak on 02-24-2025 Bilirubin [Mass/Vol] 0.20 mg/dL 0.20-1.00 [facility] Comment on above: For patients on eltr ombopag therapy, use of Dimension [place] TBIL is not recommended. Blood urea nitrogen (BUN)/cr eatinine ratioOrdered By: Mario Mak on 01-07-2025 Urea nitrogen/Creatinine [Mass ratio] 37.0 mg/mg High 10-20 [facility] CBC W/Diff, Automatedon 12-16 Absolute Lymph 0.98 X10 3/uL Normal 0.83-4.51 [facility] Comment on above: Order Comment: 107.1 Performed By: #### L 503.6030, L503.0105, L506.0250, L500.4050, L100.0100, L101.9900 #### [facility] [address] [place], [address] Absolute Neut 5.7 X10 3/uL Normal 2.0-7.7 [facility] Comment on above: Order Comment: 107.1 Performed By: #### L 503.6030, L503.0105, L506.0250, L500.4050, L100.0100, L101.9900 #### [facility] [address] [place], [address] Basophils/100 WBC (Bld) 0.5 % Normal 0-1 [facility] Comment on above: Order Comment: 107.1 Performed By: #### L 503.6030, L503.0105, L506.0250, L500.4050, L100.0100, L101.9900 #### [facility] [address] [place], [address] Eosinophils/100 WBC (Bld) 3.2 % Normal 0-5 [facility] Comment on above: Order Comment: 107.1 Performed By: #### L 503.6030, L503.0105, L506.0250, L500.4050, L100.0100, L101.9900 #### [facility] [address] [place], [address] Erythrocyte distribution width (RBC) [Ratio] 16.5 % High 11.6-14.6 [facility] Comment on above: Order Comment: 107.1 Performed By: #### L 503.6030, L503.0105, L506.0250, L500.4050, L100.0100, L101.9900 #### [facility] [address] [place], [address] Hematocrit (Bld) [Volume fraction] 28.5 % Low 37-47 [facility] Comment on above: Order Comment: 107.1 Performed By: #### L 503.6030, L503.0105, L506.0250, L500.4050, L100.0100, L101.9900 #### [facility] [address] [place], [address] Hemoglobin (Bld) [Mass/Vol] 8.9 g/dL Low 12.0-15.0 [facility] Comment on above: Order Comment: 107.1 Performed By: #### L 503.6030, L503.0105, L506.0250, L500.4050, L100.0100, L101.9900 #### [facility] [address] [place], [address] IG% 0.600 Normal 0.0-0.9 [facility] Comment on above: Order Comment: 107.1 Result Comment: IG% - Immature Granulocytes (promyelocytes, myelocytes and metamyelocytes) > 1% indicates that a LEFT SHIFT is Present. Performed By: #### L 503.6030, L503.0105, L506.0250, L500.4050, L100.0100, L101.9900 #### [facility] [address] [place], [address] Lymphocytes/100 WBC (Bld) 12.6 % Low 19-41 [facility] Comment on above: Order Comment: 107.1 Performed By: #### L 503.6030, L503.0105, L506.0250, L500.4050, L100.0100, L101.9900 #### [facility] [address] [place], [address] MCH (RBC) [Entitic mass] 28.7 pg Normal 27.0-32.0 [facility] Comment on above: Order Comment: 107.1 Performed By: #### L 503.6030, L503.0105, L506.0250, L500.4050, L100.0100, L101.9900 #### [facility] [address] [place], [address] MCHC (RBC) [Mass/Vol] 31.2 g/dL Low 32-[address] [facility] Comment on above: Order Comment: 107.1 Performed By: #### L 503.6030, L503.0105, L506.0250, L500.4050, L100.0100, L101.9900 #### [facility] [address] [place], [address] MCV (RBC) [Entitic vol] 91.9 fL Normal 81-99 [facility] Comment on above: Order Comment: 107.1 Performed By: #### L 503.6030, L503.0105, L506.0250, L500.4050, L100.0100, L101.9900 #### [facility] [address] [place], [address] Monocytes/100 WBC (Bld) 9.9 % Normal 0-10 [facility] Comment on above: Order Comment: 107.1 Performed By: #### L 503.6030, L503.0105, L506.0250, L500.4050, L100.0100, L101.9900 #### [facility] [address] [place], [address] Neutrophils/100 WBC (Bld) 73.2 % High 47-70 [facility] Comment on above: Order Comment: 107.1 Performed By: #### L 503.6030, L503.0105, L506.0250, L500.4050, L100.0100, L101.9900 #### [facility] [address] [place], [address] Nucleated RBC (Bld) [#/Vol] 0 10*3/uL Normal 0-5 [facility] Comment on above: Order Comment: 107.1 Performed By: #### L 503.6030, L503.0105, L506.0250, L500.4050, L100.0100, L101.9900 #### [facility] [address] [place], [address] Platelet mean volume (Bld) [Entitic vol] 9.8 fL Normal 6.2-12.0 [facility] Comment on above: Order Comment: 107.1 Performed By: #### L 503.6030, L503.0105, L506.0250, L500.4050, L100.0100, L101.9900 #### [facility] [address] [place], [address] Platelets (Bld) [#/Vol] 319 10*3/uL Normal 150-450 [facility] Comment on above: Order Comment: 107.1 Performed By: #### L 503.6030, L503.0105, L506.0250, L500.4050, L100.0100, L101.9900 #### [facility] [address] [place], [address] RBC (Bld) [#/Vol] 3.10 10*6/uL Low 4.2-5.[address] [facility] Comment on above: Order Comment: 107.1 Performed By: #### L 503.6030, L503.0105, L506.0250, L500.4050, L100.0100, L101.9900 #### [facility] [address] [place], [address] RDW SD 56.5 fl High 35.1-43.9 [facility] Comment on above: Order Comment: 107.1 Performed By: #### L 503.6030, L503.0105, L506.0250, L500.4050, L100.0100, L101.9900 #### [facility] [address] [place], [address] WBC (Bld) [#/Vol] 7.8 10*3/uL Normal 4.4-11.0 [facility] Comment on above: Order Comment: 107.1 Performed By: #### L 503.6030, L503.0105, L506.0250, L500.4050, L100.0100, L101.9900 #### [facility] [address] [place], [address] Carbon dioxide measurementOr dered By: Mario Mak on 01-07-2025 CO2 [Moles/Vol] 28.0 mmol/L 21.0-32.0 [facility] Chloride measurementOrdered By: Mario Mak on 01-07-2025 Chloride [Moles/Vol] 105 mmol/L 98-107 [facility] Comprehensive Metabolic Prof ilon 01-07-2025 Albumin [Mass/Vol] 2.1 g/dL Low 3.2-5.0 [facility] Comment on above: Performed By: #### L 503.6030, L503.0105, L506.0250, L500.4050, L100.0100, L101.9900 #### [facility] [address] [place], [address] Albumin/Globulin [Mass ratio] 0.6 {ratio} Low 0.9-2.4 [facility] Comment on above: Performed By: #### L 503.6030, L503.0105, L506.0250, L500.4050, L100.0100, L101.9900 #### [facility] [address] [place], [address] ALK P 95 U/L Normal 45-117 [facility] Comment on above: Performed By: #### L 503.6030, L503.0105, L506.0250, L500.4050, L100.0100, L101.9900 #### [facility] [address] [place], [address] ALT [Catalytic activity/Vol] U/L Low 13-56 [facility] Comment on above: Performed By: #### L 503.6030, L503.0105, L506.0250, L500.4050, L100.0100, L101.9900 #### [facility] [address] [place], [address] AST [Catalytic activity/Vol] 21 U/L Normal 15-37 [facility] Comment on above: Performed By: #### L 503.6030, L503.0105, L506.0250, L500.4050, L100.0100, L101.9900 #### [facility] [address] [place], [address] Bilirubin [Mass/Vol] 0.20 mg/dL Normal 0.20-1.00 [facility] Comment on above: Result Comment: For patients on eltrombopag therapy, use of Dimension [place] TBIL is not recommended. Performed By: #### L 503.6030, L503.0105, L506.0250, L500.4050, L100.0100, L101.9900 #### [facility] [address] [place], [address] BUN/CRE 37.0 RATIO High 10-20 [facility] Comment on above: Performed By: #### L 503.6030, L503.0105, L506.0250, L500.4050, L100.0100, L101.9900 #### [facility] [address] [place], [address] CA,Total 8.6 mg/dL Normal 8.5-10.1 [facility] Comment on above: Performed By: #### L 503.6030, L503.0105, L506.0250, L500.4050, L100.0100, L101.9900 #### [facility] [address] [place], [address] Chloride [Moles/Vol] 105 mmol/L Normal 98-107 [facility] Comment on above: Performed By: #### L 503.6030, L503.0105, L506.0250, L500.4050, L100.0100, L101.9900 #### [facility] [address] [place], [address] CO2 [Moles/Vol] 28.0 mmol/L Normal 21.0-32.0 [facility] Comment on above: Performed By: #### L 503.6030, L503.0105, L506.0250, L500.4050, L100.0100, L101.9900 #### [facility] [address] [place], [address] Creatinine [Mass/Vol] 0.76 mg/dL Normal 0.55-1.[address] [facility] Comment on above: Result Comment: The validity of the calculated GFR GFRAA in patients over 70 years has not been determined. Clinical correlation is essential. Performed By: #### L 503.6030, L503.0105, L506.0250, L500.4050, L100.0100, L101.9900 #### [facility] [address] [place], [address] EST GFR - AA 93 mL/min Normal >60 [facility] Comment on above: Result Comment: Afri can [place] GFR Calc Performed By: #### L 503.6030, L503.0105, L506.0250, L500.4050, L100.0100, L101.9900 #### [facility] [address] [place], [address] GAP 7 Normal 5-15 [facility] Comment on above: Performed By: #### L 503.6030, L503.0105, L506.0250, L500.4050, L100.0100, L101.9900 #### [facility] [address] [place], [address] GFR/1.73 sq M.predicted among non-blacks MDRD (S/P/Bld) [Vol rate/Area] 77 mL/min/{1.73_m2} Normal >60 [facility] Comment on above: Result Comment: Non- GFR Calc Performed By: #### L 503.6030, L503.0105, L506.0250, L500.4050, L100.0100, L101.9900 #### [facility] [address] [place], [address] Globulin (S) [Mass/Vol] 3.4 g/dL Normal 2.2-4.2 [facility] Comment on above: Performed By: #### L 503.6030, L503.0105, L506.0250, L500.4050, L100.0100, L101.9900 #### [facility] [address] [place], [address] Glucose [Mass/Vol] 58 mg/dL Low 74-106 [facility] Comment on above: Performed By: #### L 503.6030, L503.0105, L506.0250, L500.4050, L100.0100, L101.9900 #### [facility] [address] [place], [address] Potassium [Moles/Vol] 4.1 mmol/L Normal 3.5-5.[address] [facility] Comment on above: Performed By: #### L 503.6030, L503.0105, L506.0250, L500.4050, L100.0100, L101.9900 #### [facility] [address] [place], [address] Sodium [Moles/Vol] 139 mmol/L Normal 136-145 [facility] Comment on above: Performed By: #### L 503.6030, L503.0105, L506.0250, L500.4050, L100.0100, L101.9900 #### [facility] [address] [place], [address] T PROT 5.5 g/dL Low 6.4-8.2 [facility] Comment on above: Performed By: #### L 503.6030, L503.0105, L506.0250, L500.4050, L100.0100, L101.9900 #### [facility] [address] [place], [address] Urea nitrogen [Mass/Vol] 28 mg/dL High 7-18 [facility] Comment on above: Performed By: #### L 503.6030, L503.0105, L506.0250, L500.4050, L100.0100, L101.9900 #### [facility] [address] [place], [address] Eosinophil percentageOrdered By: Mario Mak on 01-07-2025 Eosinophils/100 WBC (Bld) 3.2 % 0-5 [facility] Erythrocyte Sed Rateon 01-07 SED RATE 41 mm/hr High 0-30 [facility] Comment on above: Order Comment: 107.1 Performed By: #### L 503.6030, L503.0105, L506.0250, L500.4050, L100.0100, L101.9900 #### [facility] [place], [address] Erythrocyte distribution wid th (RBC) [Ratio]Ordered By: Mario Mak on 01-07-2025 Erythrocyte distribution width (RBC) [Entitic vol] 56.5 fL High 35.1-43.9 [facility] Erythrocyte distribution wid th ratioOrdered By: Mario Mak on 01-07-2025 Erythrocyte distribution width (RBC) [Ratio] 16.5 % High 11.6-14.6 [facility] Erythrocyte distribution wid th standard deviationOrdered By: Mario Mak on 01-07-2025 Erythrocyte distribution width (RBC) [Ratio] 56.5 fl High 35.1-43.9 [facility] Erythrocyte sedimentation ra teOrdered By: Mario Mak on 01-07-2025 ESR (Bld) [Velocity] 41 mm/h High 0-30 [facility] Estimated glomerular filtrat ion rate (GFR) AmericanOrdered By: Mario Mak on 01-07-2025 Estimated GFR (MDRD) Amer 93 mL/min >60 [facility] Comment on above: GFR Calc Glomerular filtration rate ( GFR) estimationOrdered By: Mairo Mak on 01-07-2025 Estimated GFR (MDRD) Non-Af Amer 77 mL/min >60 [facility] Comment on above: Non- GFR Calc GFR/1.73 sq M.predicted among non-blacks MDRD (S/P/Bld) [Vol rate/Area] 77 mL/min/{1.73_m2} >60 [facility] Comment on above: Non- GFR Calc Glucose measurementOrdered B y: Mario Mak on 01-07-2025 Glucose [Mass/Vol] 58 mg/dL Low 74-106 [facility] Hematocrit Auto (Bld) [Volum e fraction]Ordered By: Mario Mak on 01-07-2025 Hematocrit (Bld) [Volume fraction] 28.5 % Low 37-47 [facility] Hemoglobin measurementOrdere d By: Mario Mak on 01-07-2025 Hemoglobin (Bld) [Mass/Vol] 8.9 g/dL Low 12.0-15.0 [facility] Immature granulocytes/100 WB C Auto (Bld)Ordered By: Mario Mak on 01-07-2025 Immature granulocytes/100 WBC (Bld) 0.600 % 0.0-0.9 [facility] Comment on above: IG% - Immature Granu locytes (promyelocytes, myelocytes and metamyelocytes) > 1% indicates that a LEFT SHIFT is Present. Laboratory - Chemistry and C hemistry - challengeOrdered By: Mario Mak on 01-07-2025 AST [Catalytic activity/Vol] 21 U/L 15-37 [facility] Lymphocytes Auto (Unsp spec) [#/Vol]Ordered By: Mario Mak on 01-07-2025 Lymphocytes (Bld) [#/Vol] 0.98 10*3/uL 0.83-4.51 [facility] Lymphocytes/100 WBC Auto (Un sp spec)Ordered By: Mario Mak on 01-07-2025 Lymphocytes/100 WBC (Bld) 12.6 % Low 19-41 [facility] MCV (mean corpuscular volume ) determinationOrdered By: Mario Mak on 01-07-2025 MCV (RBC) [Entitic vol] 91.9 fL 81-99 [facility] Mean corpuscular hemoglobin (MCH) determinationOrdered By: Mario Mak on 01-07-2025 MCH (RBC) [Entitic mass] 28.7 pg 27.0-32.0 [facility] Mean corpuscular hemoglobin concentration (MCHC) determinationOrdered By: Mario Mak on 01-07-2025 MCHC (RBC) [Mass/Vol] 31.2 g/dL Low 32-[address] [facility] Mean platelet volume determi nationOrdered By: Mario Mak on 01-07-2025 Platelet mean volume (Bld) [Entitic vol] 9.8 fL 6.2-12.0 [facility] Monocyte percentageOrdered B y: Mario Mak on 01-07-2025 Monocytes/100 WBC (Bld) 9.9 % 0-10 [facility] Neutrophil percentageOrdered By: Mario Mak on 01-07-2025 Neutrophils/100 WBC (Bld) 73.2 % High 47-70 [facility] Nucleated red blood cell per centageOrdered By: Mario Mak on 01-07-2025 Nucleated RBC/100 WBC (Bld) [Ratio] 0 % 0-5 [facility] Platelet countOrdered By: Moreno on 01-07-2025 Platelets (Bld) [#/Vol] 319 10*3/uL 150-450 [facility] Potassium measurementOrdered By: Mario Mak on 01-07-2025 Potassium [Moles/Vol] 4.1 mmol/L 3.5-5.[address] [facility] RBC Auto (Bld) [#/Vol]Ordere d By: Mario Mak on 01-07-2025 RBC (Bld) [#/Vol] 3.10 10*6/uL Low 4.2-5.[address] [facility] Serum anion gap measurementO rdered By: Mario Mak on 01-07-2025 Anion gap [Moles/Vol] 7 mmol/L 5-[address] [facility] Serum globulin measurementOr dered By: Mario Mak on 01-07-2025 Globulin (S) [Mass/Vol] 3.4 g/dL 2.2-4.2 [facility] Serum or plasma alanine melara otransferase (ALT) measurementOrdered By: Mario Mak on 01-07-2025 ALT [Catalytic activity/Vol] U/L Low 13-56 [facility] Serum or plasma albumin roma urement (mass/volume)Ordered By: Mario Mak on 01-07-2025 Albumin [Mass/Vol] 2.1 g/dL Low 3.2-5.0 [facility] Serum or plasma alkaline krystal sphatase measurementOrdered By: Mario Mak on 01-07-2025 ALP [Catalytic activity/Vol] 95 U/L 45-117 [facility] Serum or plasma calcium roma urement (mass/volume)Ordered By: Mario Mak on 01-07-2025 Calcium [Mass/Vol] 8.6 mg/dL 8.5-10.1 [facility] Serum or plasma creatinine m easurement (mass/volume)Ordered By: Mario Mak on 01-07-2025 Creatinine [Mass/Vol] 0.76 mg/dL 0.55-1.[address] [facility] Comment on above: The validity of the calculated GFR & GFRAA in patients over 70 years has not been determined. Clinical correlation is essential. Serum or plasma urea nitroge n measurement (mass/volume)Ordered By: Mario Mak on 01-07-2025 Urea nitrogen [Mass/Vol] 28 mg/dL High 7-18 [facility] Sodium levelOrdered By: [facility] on 01-07-2025 Sodium [Moles/Vol] 139 mmol/L 136-145 [facility] Total proteinOrdered By: Shwetha Mak on 01-07-2025 Protein [Mass/Vol] 5.5 g/dL Low 6.4-8.2 [facility] White blood cell (WBC) count Ordered By: Mario Mak on 01-07-2025 WBC (Bld) [#/Vol] 7.8 10*3/uL 4.4-11.0 [facility] Pyridoxine [Mass/Vol]on 12-16 Interpretation and review of laboratory results Abnormal [facility] VITAMIN B6/PYRIDOXINon 01-06 Pyridoxine [Mass/Vol] 13.8 nmol/L Low 20.0 - 125.0 nmol/L [facility] Comment on above: INTERPRETIVE INFORMA TION: Vitamin B6 (Pyridoxal 5-Phosphate) Pyridoxal 5'-phosphate measured in a specimen collected following an 8-hour or overnight fast accurately indicates vitamin B6 nutritional status. Non-fasting specimen concentration reflects recent vitamin intake. This test was developed and its performance characteristics determined by [facility]. It has not been cleared or approved by the US Food and Drug Administration. This test was performed in a CLIA certified laboratory and is intended for clinical purposes. Performed By: [facility] [address] [place] [address] Speech Therapist: Marcellus Raza MD, PhD CLIA Number: [id number] CNOVon 01-04-2025 CNOV Office Visit (FERNANDOUAV ) YUSUF MEDINA ([id number]) 1935 F [place] Date Time Provider Department [...] with dramatic improvement Currently she is in [place] and here with [facility] and nurse aid who gives the history Currently she is pain free Also spoke with her nurse at [place] who states patient does nto complain of pain, pretty sedentary. No specific complaints at [place] per nurse Currently doing well, no pain at present Family states after debridement of rt ankle- patient feels weak and does not want to walk around Was living alone until 2 months ago and now at [place]. Prior to debridement , patient was not [...] L REMV CATARACT EXTRACAP,INSERT LENS Bilateral 2020 [facility] predniSONE (DELTASONE) 5 mg tablet Take 5 [...] by mouth (more content not included)... Normal [facility]) YUSUF MEDINA ([id number]) 1935 [facility] Date Time Provider Department 01/03/25 MIGDALIA CRAMER 4CQ During your visit today, we recorded the following information about you: Alicia Coffey 01/03/2025 12:30 PM Addendum Received call from [facility]. The financial sales representative has appointment with patient's sons this afternoon at 2 pm and is requesting Advanced Directive/POA paperwork that was scanned in on 12/31. Advised to send records request, but she is concerned about not having this paperwork by 2 pm meeting. [employer] can be reached at [phone]. Fax number given for records request as well. Jame Tam MA 01/03/2025 4:16 PM Signed Records release was not signed. Please review and advice. Willie Kaur APRN.[facility] 01/04/2025 9:45 AM Signed Please advise [facility] that if patient signs record release, they can get any records they need from [facility] medical records. Or family can sign record request at half-way and half-way can fax Family Medicine the records request and I can send what I can. Our fax is [phone]. Willie Kaur APRN.Keke Page RN 01/04/2025 12:12 PM Signed Spoke with a company secretary at [facility], he took the info again to get us a signed records release faxed to the office. Please watch for fax Willie Kaur APRN.DRAKE 01/04/2025 4:20 PM Signed The initial note indicates that a financial sales representative is calling and gave return phone number [phone]. I called this number and phone rang and rang numerous times. No voice mail. I can print of POA, stamp and fax since this is a facility to facility request. Given to nursing. If the financial sales representative needs anything else and calls back, Please ask for name and direct line so that return call can be made. Thank you. Willie Kaur APRN.aSndrita Arevalo LPN 01/04/2025 4:29 PM Signed Received record release from [facility]. Faxed to number provided on form, confirmation [...] this patient by: CAREGIVER José Miguel Swanson [facility] Problem List As Of Date 01/03/2025 Noted Resolved Osteoarth NOS-other site [M19.90] 09/15/2011 BENIGN HYPERTENSION [I10] 12/01/2016 Diabetes mellitus (HCC) [E11.9] 04/10/2003 Esophageal reflux [K21.9] 06/15/2006 Lumbago [M54.50] 05/31/2007 09/15/2011 Urgency of urination [R39.15] (more content not included)... Normal [facility] COPPER BLOODon 01-03-2025 Copper [Mass/Vol] 128 ug/dL 80 - 155 ug/dL [facility] Comment on above: This test was develo ped, and its performance characteristics determined by the [facility] Department of Pathology and Laboratory Medicine. It has not been cleared or approved by the FDA. The [facility] Department of Pathology and Laboratory Medicine is regulated under CLIA as qualified to perform high-complexity testing. This test is used for clinical purposes. It should not be regarded as investigational or for research. Interpretation and review of laboratory results Normal [facility] FERRITINon 01-03-2025 Ferritin [Mass/Vol] 865 ng/mL High 14.7 - 2 05.1 ng/mL [facility] FOLATE, SERUMon 01-03-2025 Folate [Mass/Vol] 14.8 ng/mL 4.7 - PINF ng/mL [facility] Ferritin [Mass/Vol]on 2024 Interpretation and review of laboratory results Abnormal [facility] Iron and Iron binding capaci ty panelon 01-03-2025 Interpretation and review of laboratory results Normal [facility] Iron [Mass/Vol] 46 ug/dL 41 - 186 ug/dL [facility] Iron binding capacity [Mass/Vol] 245 ug/dL 232 - 386 ug/dL [facility] Iron/TIBC [Molar ratio] 18.8 % 15.0 - 57.0 % [facility] No Panel InformationOrdered By: Ok Mederos on 01-03-2025 [facility] No Panel Informationon 01-03 Interpretation and review of laboratory results Normal [facility] VITAMIN B12on 01-03-2025 Cobalamin (Vitamin B12) [Mass/Vol] 582 pg/mL 232 - 1245 pg/mL [facility] ZINC BLDOrdered By: Ok da silva on 01-03-2025 Zinc [Mass/Vol] 56 ug/dL Low 60 - 120 ug/dL [facility] Comment on above: This test was develo ped, and its performance characteristics determined by the [facility] Department of Pathology and Laboratory Medicine. It has not been cleared or approved by the FDA. The [facility] Department of Pathology and Laboratory Medicine is regulated under CLIA as qualified to perform high-complexity testing. This test is used for clinical purposes. It should not be regarded as investigational or for research. Zinc [Mass/Vol]Ordered By: Ricardo Mederos on 01-03-2025 Interpretation and review of laboratory results Abnormal [facility] CBC W Auto Differential pane l (Bld)on 01-02-2025 Basophils (Bld) [#/Vol] 0.03 10*3/uL [facility] Basophils/100 WBC (Bld) 0.3 % [facility] Differential cell count method Nom (Bld) Auto [facility] Eosinophils (Bld) [#/Vol] 0.3 10*3/uL [facility] Eosinophils/100 WBC (Bld) 2.9 % [facility] Erythrocyte distribution width (RBC) [Ratio] 17.2 % High 11.5 - 15.0 % [facility] Hematocrit (Bld) [Volume fraction] 34.1 % Low 36.0 - 46.0 % [facility] Hemoglobin (Bld) [Mass/Vol] 10.5 g/dL Low 11.5 - 15.5 g/dL [facility] Immature granulocytes (Bld) [#/Vol] 0.1 10*3/uL High [facility] Immature granulocytes/100 WBC (Bld) 1 % [facility] Interpretation and review of laboratory results Abnormal [facility] Lymphocytes (Bld) [#/Vol] 0.78 10*3/uL Low [facility] Lymphocytes/100 WBC (Bld) 7.5 % [facility] MCH (RBC) [Entitic mass] 28.5 pg 26.0 - 34.0 pg [facility] MCHC (RBC) [Mass/Vol] 30.8 g/dL 30.5 - 36.0 g/dL [facility] MCV (RBC) [Entitic vol] 92.4 fL 80.0 - 100.0 fL [facility] Monocytes (Bld) [#/Vol] 0.61 10*3/uL [facility] Monocytes/100 WBC (Bld) 5.9 % [facility] Neutrophils (Bld) [#/Vol] 8.56 10*3/uL High [facility] Neutrophils/100 WBC (Bld) 82.4 % [facility] Nucleated RBC (Bld) [#/Vol] NINF [facility] Nucleated RBC/100 WBC (Bld) [Ratio] 0 % /100 WBC [facility] Platelet mean volume (Bld) [Entitic vol] 8.7 fL Low 9.0 - 12.7 fL [facility] Platelets (Bld) [#/Vol] 362 10*3/uL [facility] RBC (Bld) [#/Vol] 3.69 10*6/uL Low 3.90 - 5.2 0 m/uL [facility] WBC (Bld) [#/Vol] 10.38 10*3/uL [facility] Basophils (Bld) [#/Vol] 0.03 10*3/uL Normal <0.11 [facility] Comment on above: Order Comment: Speci men Type: BLOOD SPECIMENOrdering Facility: [facility] Address: [address] [place] [address] Performed By: #### 5 7021-8 ####[facility] LABCLIA [id number] [place] [address] [place] Basophils/100 WBC (Bld) 0.3 % Normal [facility] Comment on above: Order Comment: Speci men Type: BLOOD SPECIMENOrdering Facility: [facility] Address: [address] [place] [address] Performed By: #### 5 7021-8 ####[facility] LABCLIA [id number] [place] [address] [place] Differential cell count method Nom (Bld) Auto Normal [facility] Comment on above: Order Comment: Speci men Type: BLOOD SPECIMENOrdering Facility: [facility] Address: [address] [place] [address] Performed By: #### 5 7021-8 ####[facility] LABCLIA [id number] [place] [address] [place] Eosinophils (Bld) [#/Vol] 0.30 10*3/uL Normal <0.46 [facility] Comment on above: Order Comment: Speci men Type: BLOOD SPECIMENOrdering Facility: [facility] Address: [address] [place] [address] Performed By: #### 5 7021-8 ####[facility] LABCLIA [id number] [place] [address] [place] Eosinophils/100 WBC (Bld) 2.9 % Normal [facility] Comment on above: Order Comment: Speci men Type: BLOOD SPECIMENOrdering Facility: [facility] Address: [address] [place] [address] Performed By: #### 5 7021-8 ####[place] [facility] LABCLIA [id number] [address] [place] Erythrocyte distribution width (RBC) [Ratio] 17.2 % High 11.5-15.0 [facility] Comment on above: Order Comment: Speci men Type: BLOOD SPECIMENOrdering Facility: [facility] Address: [address] [place] [address] Performed By: #### 5 7021-8 ####[facility] LABCLIA [id number] [address] [place] Hematocrit (Bld) [Volume fraction] 34.1 % Low 36.0-46.0 [facility] Comment on above: Order Comment: Speci men Type: BLOOD SPECIMENOrdering Facility: [facility] Address: [address] [place] [address] Performed By: #### 5 7021-8 ####[place] [facility] LABCLIA [id number] [place] [address] [place] Hemoglobin (Bld) [Mass/Vol] 10.5 g/dL Low 11.5-15.5 [facility] Comment on above: Order Comment: Speci men Type: BLOOD SPECIMENOrdering Facility: [facility] Address: [address] [place] [address] Performed By: #### 5 7021-8 ####[facility] LABCLIA [id number] [place] [address] [place] Immature granulocytes (Bld) [#/Vol] 0.10 10*3/uL High <0.10 [facility] Comment on above: Order Comment: Speci men Type: BLOOD SPECIMENOrdering Facility: [facility] Address: [address] [place] [address] Performed By: #### 5 7021-8 ####[place] [facility] LABCLIA [id number] [address] [place] Immature granulocytes/100 WBC (Bld) 1.0 % Normal [facility] Comment on above: Order Comment: Speci men Type: BLOOD SPECIMENOrdering Facility: [facility] Address: [address] [place] [address] Performed By: #### 5 7021-8 ####[facility] LABCLIA [id number] [address] [place] Lymphocytes (Bld) [#/Vol] 0.78 10*3/uL Low 1.00-4.00 [facility] Comment on above: Order Comment: Speci men Type: BLOOD SPECIMENOrdering Facility: [facility] Address: [address] [place] [address] Performed By: #### 5 7021-8 ####[facility] LABCLIA [id number] [address] Lymphocytes/100 WBC (Bld) 7.5 % Normal [facility] Comment on above: Order Comment: Speci men Type: BLOOD SPECIMENOrdering Facility: [facility] Address: [address] [place] [address] Performed By: #### 5 7021-8 ####[facility] LABCLIA [id number] [address] [place] MCH (RBC) [Entitic mass] 28.5 pg Normal 26.0-34.0 [facility] Comment on above: Order Comment: Speci men Type: BLOOD SPECIMENOrdering Facility: [facility] Address: [address] [place] [address] Performed By: #### 5 7021-8 ####[facility] LABCLIA [id number] [place] [address] [place] MCHC (RBC) [Mass/Vol] 30.8 g/dL Normal 30.5-36.0 [facility] Comment on above: Order Comment: Speci men Type: BLOOD SPECIMENOrdering Facility: [facility] Address: [address] [place] [address] Performed By: #### 5 7021-8 ####[facility] LABCLIA [id number] [place] [address] [place] MCV (RBC) [Entitic vol] 92.4 fL Normal 80.0-100.0 [facility] Comment on above: Order Comment: Speci men Type: BLOOD SPECIMENOrdering Facility: [facility] Address: [address] [place] [address] Performed By: #### 5 7021-8 ####[facility] LABCLIA [id number] [address] [place] Monocytes (Bld) [#/Vol] 0.61 10*3/uL Normal <0.87 [facility] Comment on above: Order Comment: Speci men Type: BLOOD SPECIMENOrdering Facility: [facility] Address: [address] [place] [address] Performed By: #### 5 7021-8 ####[facility] LABCLIA [id number] [address] Monocytes/100 WBC (Bld) 5.9 % Normal [facility] Comment on above: Order Comment: Speci men Type: BLOOD SPECIMENOrdering Facility: [facility] Address: [address] [place] [address] Performed By: #### 5 7021-8 ####[facility] LABCLIA [id number] [address] [place] Neutrophils (Bld) [#/Vol] 8.56 10*3/uL High 1.45-7.50 [facility] Comment on above: Order Comment: Speci men Type: BLOOD SPECIMENOrdering Facility: [facility] Address: [address] [place] [address] Performed By: #### 5 7021-8 ####[facility] LABCLIA [id number] [address] [place] Neutrophils/100 WBC (Bld) 82.4 % Normal [facility] Comment on above: Order Comment: Speci men Type: BLOOD SPECIMENOrdering Facility: [facility] Address: [address] [place] [address] Performed By: #### 5 7021-8 ####[facility] LABCLIA [id number] [place] [address] [place] Nucleated RBC (Bld) [#/Vol] 10*3/uL Normal <0.01 [facility] Comment on above: Order Comment: Speci men Type: BLOOD SPECIMENOrdering Facility: [facility] Address: [address] [place] [address] Performed By: #### 5 7021-8 ####[facility] LABIA [id number] [place] [address] [place] Nucleated RBC/100 WBC (Bld) [Ratio] 0.0 /[address] [facility] Comment on above: Order Comment: Speci men Type: BLOOD SPECIMENOrdering Facility: [facility] Address: [address] [place] [address] Performed By: #### 5 7021-8 ####[facility] LABCLIA [id number] [place] [address] [place] Platelet mean volume (Bld) [Entitic vol] 8.7 fL Low 9.0-12.7 [facility] Comment on above: Order Comment: Speci men Type: BLOOD SPECIMENOrdering Facility: [facility] Address: [address] [place] [address] Performed By: #### 5 7021-8 ####[place] [facility] LABCLIA [id number] [place] [address] [place] Platelets (Bld) [#/Vol] 362 10*3/uL Normal 150-400 [facility] Comment on above: Order Comment: Speci men Type: BLOOD SPECIMENOrdering Facility: [facility] Address: [address] [place] [address] Performed By: #### 5 7021-8 ####[place] [facility] LABCLIA [id number] [place] [address] [place] RBC (Bld) [#/Vol] 3.69 10*6/uL Low 3.90-5.20 [facility] Comment on above: Order Comment: Speci men Type: BLOOD SPECIMENOrdering Facility: [facility] Address: [address] [place] [address] Performed By: #### 5 7021-8 ####[facility] LABCLIA [id number] [place] [address] [place] WBC (Bld) [#/Vol] 10.38 10*3/uL Normal 3.70-11.00 [facility] Comment on above: Order Comment: Speci men Type: BLOOD SPECIMENOrdering Facility: [facility] Address: [address] [place] [address] Performed By: #### 5 7021-8 ####[place] [facility] LABCLIA [id number] [address] [place] CNOVSPon 01-02-2025 CNOVSP Visit (SP) Office (HEMAST) YUSUF MEDINA ([id number]) 1935 F [place] Date Time Provider Department [...] L REMV CATARACT EXTRACAP,INSERT LENS Bilateral 2020 [facility] FAMILY HISTORY Problem Relation Age of Onset [...] daily. amLODI (more content not included)... Normal [facility] 01-02-2025 CNPN Telephone (HEMAST) CAROLYUSUF ([id number]) 1935 [facility] Date Time Provider Department 01/02/25 ADITI LOPEZ During your visit today, we recorded the following information about you: Aditi Lopez LISW 01/02/2025 4:03 PM Signed SOCIAL WORK Date of Service: Thursday January 02, 2025 [facility] Fireworks Maker (SW) Aditi Lopez attempted to contact Yusuf Medina by phone using acid purifier services to complete the distress assessment. Yusuf has been diagnosed with Normocytic anemia. She flagged for moderate depression on 12-31-24. 08/14/2018 11/21/2024 2024 PHQ-9 Score 9 13 12 LYRIC spoke with Yusuf's family member Mercedes. She advised that Yusuf is in a residential facility. Mercedes advised that she completed the questionnaire without the patient. She also noted that Yusuf will most likely not understand the [place]one[place] acid purifier because she speaks a different dialect. At [...] this patient by: CAREGIVER José Miguel Swanson [facility] Problem List As Of Date [...] Osteoarth NOS-p (more content not included)... Normal [facility] CONFIRM BLOOD TYPEon 025 ABO group Nom (Bld) O [facility] Rh Nom (Bld) Positive [facility] ABO O Normal [facility] Comment on above: Order Comment: Speci men Type: BLOOD SPECIMENOrdering Facility: [facility] Address: [address] [place] [address] Performed By: #### C ONABO ####[facility] BLOOD BANKCLIA [id number] [address] [place] Rh Nom (Bld) Positive Normal [facility] Comment on above: Order Comment: Speci men Type: BLOOD SPECIMENOrdering Facility: [facility] Address: [address] [place] [address] Performed By: #### C ONABO ####[facility] BLOOD BANKCLIA [id number] [place] [address] [place] COPPER BLOODon 01-02-2025 Copper [Mass/Vol] 128 ug/dL Normal 80-155 [facility] Comment on above: Order Comment: Speci men Type: BLOOD SPECIMENOrdering Facility: [facility] Address: [address] [place] [address] Result Comment: This test was developed, and its performance characteristics determined by the [facility] Department of Pathology and Laboratory Medicine. It has not been cleared or approved by the FDA. The [facility] Department of Pathology and Laboratory Medicine is regulated under CLIA as qualified to perform high-complexity testing. This test is used for clinical purposes. It should not be regarded as investigational or for research. Performed By: #### 5 763-8, COPPER ####[facility] LABCLIA [id number] [place] [address] [place] Comprehensive metabolic 2000 panelOrdered By: Aminta Lim on 01-02-2025 Albumin [Mass/Vol] 3.5 g/dL Low 3.9 - 4.9 g/dL [facility] ALP [Catalytic activity/Vol] 128 U/L High 34 - 123 U/L [facility] ALT [Catalytic activity/Vol] U/L Low 7 - 38 U/L [facility] Anion gap [Moles/Vol] 13 mmol/L 8 - 15 mmol/L [facility] AST [Catalytic activity/Vol] 15 U/L 13 - 35 U/L [facility] Bilirubin [Mass/Vol] 0.2 mg/dL 0.2 - 1 .3 mg/dL [facility] Calcium [Mass/Vol] 9.1 mg/dL 8.5 - 10. 2 mg/dL [facility] Chloride [Moles/Vol] 98 mmol/L 98 - 10 7 mmol/L [facility] CO2 [Moles/Vol] 26 mmol/L 22 - 30 mmol/L [facility] Creatinine [Mass/Vol] 0.82 mg/dL 0.58 - 0.96 mg/dL [facility] GFR/1.73 sq M.predicted among non-blacks MDRD (S/P/Bld) [Vol rate/Area] 68 mL/min/{1.73_m2} - PINF [facility] Comment on above: Estimated Glomerular Filtration Rate [...] 276 mg/dL High 74 - 99 mg/dL [facility] Comment on above: The [place] Di[employer] Association (ADA) provides guidance for [...] Standards of Medical Care in Diabetes 2016, [place] [employer]. Diabetes Care. 2016.39(Suppl 1). Interpretation and review of laboratory results Abnormal [facility] Potassium [Moles/Vol] 5.1 mmol/L 3.7 - 5.1 mmol/L [facility] Protein [Mass/Vol] 5.9 g/dL Low 6.3 - 8.0 g/dL [facility] Sodium [Moles/Vol] 137 mmol/L 136 - 144 mmol/L [facility] Urea nitrogen [Mass/Vol] 29 mg/dL High 7 - 21 mg/dL [facility] Comprehensive metabolic 2000 panelon 01-02-2025 Albumin [Mass/Vol] 3.5 g/dL Low 3.9-4.9 [facility] Comment on above: Order Comment: Speci halina Type: BLOOD SPECIMEN [facility]: [facility] Address: [address] [place] [address] Performed By: #### 2 276-4, 2131-9, 49682-7, 2283-8 #### [facility] LAB CLIA [id number] [address] [place] [address] [place] ALP [Catalytic activity/Vol] 128 U/L High 34-123 [facility] Comment on above: Order Comment: Speci halina Type: BLOOD SPECIMEN [facility]: [facility] Address: [address] [place] [address] Performed By: #### 2 276-4, 2131-9, 16278-1, 8 #### [facility] CLIA [id number] [address] [place] [address] [place] ALT [Catalytic activity/Vol] U/L Low 7-38 [facility] Comment on above: Order Comment: Speci men Type: BLOOD SPECIMEN [facility] Address: [address] [place] [address] Performed By: #### 2 276-4, 2131-9, 14883-1, 2283-8 #### [facility] CLIA [id number] [address] [place] [address] [place] Anion gap [Moles/Vol] 13 mmol/L Normal 8-15 [facility] Comment on above: Order Comment: Speci men Type: BLOOD SPECIMEN [facility]: [facility] Address: [address] [place] [address] Performed By: #### 2 276-4, 2-9, 66618-2, 2284-8 #### [facility] CLIA [id number] [address] [place] [address] [place] AST [Catalytic activity/Vol] 15 U/L Normal 13-35 [facility] Comment on above: Order Comment: Speci men Type: BLOOD SPECIMEN Ordering Facility: [facility] Address: [address] [place] [address] Performed By: #### 2 276-4, 2131-9, 67180-4, 2283-8 #### [facility] CLIA [id number] [address] [place] [address] [place] Bilirubin [Mass/Vol] 0.2 mg/dL Normal 0.2-1.3 [facility] Comment on above: Order Comment: Speci men Type: BLOOD SPECIMEN Ordering Facility: [facility] Address: [address] [place] [address] Performed By: #### 2 276-4, 2131-9, 43385-4, 2283-8 #### [facility] CLIA [id number] [address] [place] [address] [place] Calcium [Mass/Vol] 9.1 mg/dL Normal 8.5-10.2 [facility] Comment on above: Order Comment: Speci men Type: BLOOD SPECIMEN Ordering Facility: [facility] Address: [address] [place] [address] Performed By: #### 2 276-4, 2131-9, 55392-8, 228-8 #### [facility] CLIA [id number] [address] [place], [place] [address] [place] Chloride [Moles/Vol] 98 mmol/L Normal 98-107 [facility] Comment on above: Order Comment: Speci men Type: BLOOD SPECIMEN Ordering Facility: [facility] Address: [address] [place] [address] Performed By: #### 2 276-4, 2132-9, 74825-9, 2284-8 #### [facility] CLIA [id number] [address] [place] [address] [place] CO2 [Moles/Vol] 26 mmol/L Normal 22-30 [facility] Comment on above: Order Comment: Speci men Type: BLOOD SPECIMEN Ordering Facility: [facility] Address: [address] [place] [address] Performed By: #### 2 276-4, 2132-9, 87646-9, 2284-8 #### [facility] CLIA [id number] [address] [place] [address] [place] Creatinine [Mass/Vol] 0.82 mg/dL Normal 0.58-0.96 [facility] Comment on above: Order Comment: Speci men Type: BLOOD SPECIMEN Ordering Facility: [facility] Address: [address] [place] [address] Performed By: #### 2 276-4, 2132-9, 84534-0, 2284-8 #### [facility] CLIA [id number] [address] [place] [address] [place] Creatinine and Glomerular filtration rate.predicted panel (S/P/Bld) 68 mL/min/1.73m??? Normal >=60 [facility] Comment on above: Order Comment: Speci men Type: BLOOD SPECIMEN Ordering Facility: [facility] Address: [address] [place] [address] Result Comment: Hilda mated Glomerular Filtration Rate [...] GFR. Performed By: #### 2 276-4, 9, 88692-6, 2284-06 #### [facility] CLIA [id number] [address] [place], [place] [address] [place] Glucose [Mass/Vol] 276 mg/dL High 74-99 [facility] Comment on above: Order Comment: Fan meade Type: BLOOD SPECIMEN Ordering Facility: [facility] Address: [address] [place] [address] Result Comment: The [place] [employer] (ADA) provides guidance for cutoff [...] Standards of Medical Care in Diabetes 2016, [place] [employer]. Diabetes Care. 2016.39(Suppl 1). Performed By: #### 2 276-4, 9, 21030-6, 2284-06 #### [facility] CLIA [id number] [address] [place], [place] [address] [place] Potassium [Moles/Vol] 5.1 mmol/L Normal 3.7-5.1 [facility] Comment on above: Order Comment: Fan meade Type: BLOOD SPECIMEN Ordering Facility: [facility] Address: [address] [place] [address] Performed By: #### 2 276-4, 9, 30082-5, 2284-06 #### [facility] CLIA [id number] [address] [place] [address] [place] Protein [Mass/Vol] 5.9 g/dL Low 6.3-8.0 [facility] Comment on above: Order Comment: Speci men Type: BLOOD SPECIMEN Ordering Facility: [facility] Address: [address] [place] [address] Performed By: #### 2 276-4, 2131-9, 66092-1, 2284-8 #### [facility] CLIA [id number] [address] [place] [address] [place] Sodium [Moles/Vol] 137 mmol/L Normal 136-144 [facility] Comment on above: Order Comment: Speci men Type: BLOOD SPECIMEN Ordering Facility: [facility] Address: [address] [place] [address] Performed By: #### 2 276-4, 9, 61579-8, 2283-8 #### [facility] CLIA [id number] [address] [place] [address] [place] Urea nitrogen [Mass/Vol] 29 mg/dL High 7-21 [facility] Comment on above: Order Comment: Speci men Type: BLOOD SPECIMEN Ordering Facility: [facility] Address: [address] [place] [address] Performed By: #### 2 276-4, 9, 77613-0, 2284-8 #### [facility] CLIA [id number] [address] [place] [address] [place] ESR Westergren method (Bld) [Velocity]on 01-02-2025 ESR (Bld) [Velocity] 47 mm/h High [facility] Interpretation and review of laboratory results Abnormal [facility] ESR (Bld) [Velocity] 47 mm/h High 0-20 [facility] Comment on above: Order Comment: Speci men Type: BLOOD SPECIMEN Ordering Facility: [facility] Address: [address] [place] [address] Performed By: #### 2 276-4, 9, 72920-9, 2283-8 #### [facility] CLIA [id number] [address] [place] [address] [place] [facility] Ferritin [Mass/Vol] 865.0 ng/mL High 14.7-205.1 [facility] Comment on above: Order Comment: Speci men Type: BLOOD SPECIMEN Ordering Facility: [facility] Address: [address] [place] [address] Performed By: #### 2 276-4, 9, 18161-7, 8 #### [facility] CLIA [id number] [address] [place] [address] [place] Folate [facility] 01-02-20 25 Folate [Mass/Vol] 14.8 ng/mL Normal >4.7 [facility] Comment on above: Order Comment: Speci men Type: BLOOD SPECIMEN Ordering Facility: [facility] Address: [address] [place] [address] Performed By: #### 2 276-4, 9, 52047-1, 8 #### [facility] CLIA [id number] [address] [place] [address] [place] Iron and Iron binding capaci ty panelon 01-02-2025 Iron [Mass/Vol] 46 ug/dL Normal 41-186 [facility] Comment on above: Order Comment: Speci men Type: BLOOD SPECIMEN Ordering Facility: [facility] Address: [address] [place] [address] Performed By: #### 2 276-4, 9, 99363-6, 2283-8 #### [facility] CLIA [id number] [address] [place] [address] [place] Iron binding capacity [Mass/Vol] 245 ug/dL Normal 232-386 [facility] Comment on above: Order Comment: Speci men Type: BLOOD SPECIMEN Ordering Facility: [facility] Address: [address] [place] [address] Performed By: #### 2 276-4, 2132-9, 13291-6, 2284-8 #### [facility] CLIA [id number] [address] [place] [address] [place] Iron/TIBC [Molar ratio] 18.8 % Normal 15.0-57.0 [facility] Comment on above: Order Comment: Speci men Type: BLOOD SPECIMEN Ordering Facility: [facility] Address: [address] [place] [address] Performed By: #### 2 276-4, 2131-9, 70612-5, 2284-8 #### [facility] CLIA [id number] [address] [place] [address] [place] TYPE + SCREENon 01-02-2025 ABO group Nom (Bld) O [facility] Blood group antibody screen Ql Negative [facility] Rh Nom (Bld) Positive [facility] Type and Screen Expiration 01/05/2025 23:59 [facility] ABO O Normal [facility] Comment on above: Order Comment: Speci men Type: BLOOD SPECIMEN Ordering Facility: [facility] Address: [address] [place] [address] Performed By: #### B CRPB1 #### [facility] CLIA [id number] [address] [place] [address] [place] #### ISMRNCNPB #### [facility] CLIA [id number] [address] [place] [address] [place] Rh Nom (Bld) Positive Normal [facility] Comment on above: Order Comment: Speci men Type: BLOOD SPECIMEN Ordering Facility: [facility] Address: [address] [place] [address] Performed By: #### B CRPB1 #### [facility] CLIA [id number] [address] [place], [place] [address] [place] #### ISMRNCNPB #### [facility] CLIA [id number] [address] [place] [address] [place] TYPE AND SCREEN EXPIRATION 01/05/2025 23:[address] [facility] Comment on above: Order Comment: Speci men Type: BLOOD SPECIMEN Ordering Facility: [facility] Address: [address] [place] [address] Performed By: #### B CRPB1 #### [facility] CLIA [id number] [address] [place] [address] [place] #### ISMRNCNPB #### [facility] CLIA [id number] [address] [place] [address] [place] VITAMIN B6/PYRIDOXINon 01-02 VITAMIN B6 13.8 nmol/L Low 20.0-125.0 [facility] Comment on above: Order Comment: Speci men Type: BLOOD SPECIMEN Ordering Facility: [facility] Address: [address] [place] [address] Result Comment: INTE RPRETIVE INFORMATION: Vitamin B6 (Pyridoxal 5-Phosphate) Pyridoxal 5'-phosphate measured in a specimen collected following an 8-hour or overnight fast accurately indicates vitamin B6 nutritional status. Non-fasting specimen concentration reflects recent vitamin intake. This test was developed and its performance characteristics determined by [facility]. It has not been cleared or approved by the [place] Food and Drug Administration. This test was performed in a CLIA certified laboratory and is intended for clinical purposes. Performed By: [facility] [address] [place] [address] Speech Therapist: Marcellus Raza MD, PhD CLIA Number: [id number] Performed By: #### 2 276-4, 2132-9, 61739-4, 2284-8 #### [facility] CLIA [id number] [address] [place] [address] [place] Vit B12 SerPl-mCncon 025 Cobalamin (Vitamin B12) [Mass/Vol] 582 pg/mL Normal 232-1245 [facility] Comment on above: Order Comment: Specleroy meade Type: BLOOD SPECIMEN Ordering Facility: [facility] Address: [address] [place] [address] Performed By: #### 2 276-4, 2132-9, 93394-2, 2284-8 #### [facility] CLIA [id number] [address] [place] [address] [place] Zinc SerPl-mCncon 01-02-2025 Zinc [Mass/Vol] 56 ug/dL Low 60-120 [facility] Comment on above: Order Comment: aFn meade Type: BLOOD SPECIMENOrdering Facility: [facility] Address: [address] [place] [address] Result Comment: This test was developed, and its performance characteristics determined by the [facility] Department of Pathology and Laboratory Medicine. It has not been cleared or approved by the FDA. The [facility] Department of Pathology and Laboratory Medicine is regulated under CLIA as qualified to perform high-complexity testing. This test is used for clinical purposes. It should not be regarded as investigational or for research. Performed By: #### 5 763-8, COPPER ####[facility] [id number] [place] [address] [place] Absolute lymphocyte countOrd ered By: Mario Mak on 2024 Lymphocytes Auto (Unsp spec) [#/Vol] 0.88 10*3/uL 0.83-4.51 [facility] Absolute neutrophil countOrd ered By: Mario Mak on 2024 Neutrophils (Bld) [#/Vol] 5.4 10*3/uL 2.0-7.7 [facility] Albumin to globulin ratioOrd ered By: Mario Mak on 2024 Albumin/Globulin [Mass ratio] 0.7 {ratio} Low 0.9-2.4 [facility] Automated lymphocyte count a s percentage of total leukocytesOrdered By: Mario Mak on 2024 Lymphocytes/100 WBC Auto (Unsp spec) 11.9 % Low 19-41 [facility] Basophil percentageOrdered B y: Mario Mak on 2024 Basophils/100 WBC (Bld) 0.3 % 0-1 [facility] Bilirubin, totalOrdered By: Mario Mak on 2024 Bilirubin [Mass/Vol] 0.30 mg/dL 0.20-1.00 [facility] Comment on above: For patients on eltr ombopag therapy, use of Dimension [place] TBIL is not recommended. Blood urea nitrogen (BUN)/cr eatinine ratioOrdered By: Mario Mak on 2024 Urea nitrogen/Creatinine [Mass ratio] 30.9 mg/mg High 10-20 [facility] CBC W/Diff, Automatedon 12-15 Absolute Lymph 0.88 X10 3/uL Normal 0.83-4.51 [facility] Comment on above: Order Comment: 107.1 Performed By: #### L 503.6030, L503.0105, L506.0250, L500.4050, L100.0100, L101.9900 #### [facility] [address] [place], [address] Absolute Neut 5.4 X10 3/uL Normal 2.0-7.7 [facility] Comment on above: Order Comment: 107.1 Performed By: #### L 503.6030, L503.0105, L506.0250, L500.4050, L100.0100, L101.9900 #### [facility] [address] [place], [address] Basophils/100 WBC (Bld) 0.3 % Normal 0-1 [facility] Comment on above: Order Comment: 107.1 Performed By: #### L 503.6030, L503.0105, L506.0250, L500.4050, L100.0100, L101.9900 #### [facility] [address] [place], [address] Eosinophils/100 WBC (Bld) 6.3 % High 0-5 [facility] Comment on above: Order Comment: 107.1 Performed By: #### L 503.6030, L503.0105, L506.0250, L500.4050, L100.0100, L101.9900 #### [facility] [address] [place], [address] Erythrocyte distribution width (RBC) [Ratio] 17.1 % High 11.6-14.6 [facility] Comment on above: Order Comment: 107.1 Performed By: #### L 503.6030, L503.0105, L506.0250, L500.4050, L100.0100, L101.9900 #### [facility] [address] [place], [address] Hematocrit (Bld) [Volume fraction] 29.8 % Low 37-47 [facility] Comment on above: Order Comment: 107.1 Performed By: #### L 503.6030, L503.0105, L506.0250, L500.4050, L100.0100, L101.9900 #### [facility] [address] [place], [address] Hemoglobin (Bld) [Mass/Vol] 9.4 g/dL Low 12.0-15.0 [facility] Comment on above: Order Comment: 107.1 Performed By: #### L 503.6030, L503.0105, L506.0250, L500.4050, L100.0100, L101.9900 #### [facility] [address] [place], [address] IG% 1.100 High 0.0-0.9 [facility] Comment on above: Order Comment: 107.1 Result Comment: IG% - Immature Granulocytes (promyelocytes, myelocytes and metamyelocytes) > 1% indicates that a LEFT SHIFT is Present. Performed By: #### L 503.6030, L503.0105, L506.0250, L500.4050, L100.0100, L101.9900 #### [facility] [address] [place], [address] Lymphocytes/100 WBC (Bld) 11.9 % Low 19-41 [facility] Comment on above: Order Comment: 107.1 Performed By: #### L 503.6030, L503.0105, L506.0250, L500.4050, L100.0100, L101.9900 #### [facility] [address] [place], [address] MCH (RBC) [Entitic mass] 28.4 pg Normal 27.0-32.0 [facility] Comment on above: Order Comment: 107.1 Performed By: #### L 503.6030, L503.0105, L506.0250, L500.4050, L100.0100, L101.9900 #### [facility] [address] [place], [address] MCHC (RBC) [Mass/Vol] 31.5 g/dL Low 32-[address] [facility] Comment on above: Order Comment: 107.1 Performed By: #### L 503.6030, L503.0105, L506.0250, L500.4050, L100.0100, L101.9900 #### [facility] [address] [place], [address] MCV (RBC) [Entitic vol] 90.0 fL Normal 81-99 [facility] Comment on above: Order Comment: 107.1 Performed By: #### L 503.6030, L503.0105, L506.0250, L500.4050, L100.0100, L101.9900 #### [facility] [address] [place], [address] Monocytes/100 WBC (Bld) 7.5 % Normal 0-10 [facility] Comment on above: Order Comment: 107.1 Performed By: #### L 503.6030, L503.0105, L506.0250, L500.4050, L100.0100, L101.9900 #### [facility] [address] [place], [address] Neutrophils/100 WBC (Bld) 72.9 % High 47-70 [facility] Comment on above: Order Comment: 107.1 Performed By: #### L 503.6030, L503.0105, L506.0250, L500.4050, L100.0100, L101.9900 #### [facility] [address] [place], [address] Nucleated RBC (Bld) [#/Vol] 0 10*3/uL Normal 0-5 [facility] Comment on above: Order Comment: 107.1 Performed By: #### L 503.6030, L503.0105, L506.0250, L500.4050, L100.0100, L101.9900 #### [facility] [address] [place], [address] Platelet mean volume (Bld) [Entitic vol] 9.2 fL Normal 6.2-12.0 [facility] Comment on above: Order Comment: 107.1 Performed By: #### L 503.6030, L503.0105, L506.0250, L500.4050, L100.0100, L101.9900 #### [facility] [address] [place], [address] Platelets (Bld) [#/Vol] 361 10*3/uL Normal 150-450 [facility] Comment on above: Order Comment: 107.1 Performed By: #### L 503.6030, L503.0105, L506.0250, L500.4050, L100.0100, L101.9900 #### [facility] [address] [place], [address] RBC (Bld) [#/Vol] 3.31 10*6/uL Low 4.2-5.[address] [facility] Comment on above: Order Comment: 107.1 Performed By: #### L 503.6030, L503.0105, L506.0250, L500.4050, L100.0100, L101.9900 #### [facility] [address] [place], [address] RDW SD 56.3 fl High 35.1-43.9 [facility] Comment on above: Order Comment: 107.1 Performed By: #### L 503.6030, L503.0105, L506.0250, L500.4050, L100.0100, L101.9900 #### [facility] [address] [place], [address] WBC (Bld) [#/Vol] 7.4 10*3/uL Normal 4.4-11.0 [facility] Comment on above: Order Comment: 107.1 Performed By: #### L 503.6030, L503.0105, L506.0250, L500.4050, L100.0100, L101.9900 #### [facility] [address] [place], [address] Carbon dioxide measurementOr dered By: Mario Mak on 2024 CO2 [Moles/Vol] 28.0 mmol/L 21.0-32.0 [facility] Chloride measurementOrdered By: Mario Mak on 2024 Chloride [Moles/Vol] 102 mmol/L 98-107 [facility] Comprehensive Metabolic Prof ilon 2024 Albumin [Mass/Vol] 2.1 g/dL Low 3.2-5.0 [facility] Comment on above: Order Comment: 107.1 Performed By: #### L 503.6030, L503.0105, L506.0250, L500.4050, L100.0100, L101.9900 #### [facility] [address] [place], [address] Albumin/Globulin [Mass ratio] 0.7 {ratio} Low 0.9-2.4 [facility] Comment on above: Order Comment: 107.1 Performed By: #### L 503.6030, L503.0105, L506.0250, L500.4050, L100.0100, L101.9900 #### [facility] [address] [place], [address] ALK P 102 U/L Normal 45-117 [facility] Comment on above: Order Comment: 107.1 Performed By: #### L 503.6030, L503.0105, L506.0250, L500.4050, L100.0100, L101.9900 #### [facility] [address] [place], [address] ALT [Catalytic activity/Vol] U/L Low 13-56 [facility] Comment on above: Order Comment: 107.1 Performed By: #### L 503.6030, L503.0105, L506.0250, L500.4050, L100.0100, L101.9900 #### [facility] [address] [place], [address] AST [Catalytic activity/Vol] 15 U/L Normal 15-37 [facility] Comment on above: Order Comment: 107.1 Performed By: #### L 503.6030, L503.0105, L506.0250, L500.4050, L100.0100, L101.9900 #### [facility] [address] [place], [address] Bilirubin [Mass/Vol] 0.30 mg/dL Normal 0.20-1.00 [facility] Comment on above: Order Comment: 107.1 Result Comment: For patients on eltrombopag therapy, use of Dimension [place] TBIL is not recommended. Performed By: #### L 503.6030, L503.0105, L506.0250, L500.4050, L100.0100, L101.9900 #### [facility] [address] [place], [address] BUN/CRE 30.9 RATIO High 10-20 [facility] Comment on above: Order Comment: 107.1 Performed By: #### L 503.6030, L503.0105, L506.0250, L500.4050, L100.0100, L101.9900 #### [facility] [address] [place], [address] CA,Total 8.7 mg/dL Normal 8.5-10.1 [facility] Comment on above: Order Comment: 107.1 Performed By: #### L 503.6030, L503.0105, L506.0250, L500.4050, L100.0100, L101.9900 #### [facility] [address] [place], [address] Chloride [Moles/Vol] 102 mmol/L Normal 98-107 [facility] Comment on above: Order Comment: 107.1 Performed By: #### L 503.6030, L503.0105, L506.0250, L500.4050, L100.0100, L101.9900 #### [facility] [address] [place], [address] CO2 [Moles/Vol] 28.0 mmol/L Normal 21.0-32.0 [facility] Comment on above: Order Comment: 107.1 Performed By: #### L 503.6030, L503.0105, L506.0250, L500.4050, L100.0100, L101.9900 #### [facility] [address] [place], [address] Creatinine [Mass/Vol] 0.87 mg/dL Normal 0.55-1.[address] [facility] Comment on above: Order Comment: 107.1 Result Comment: The validity of the calculated GFR GFRAA in patients over 70 years has not been determined. Clinical correlation is essential. Performed By: #### L 503.6030, L503.0105, L506.0250, L500.4050, L100.0100, L101.9900 #### [facility] [address] [place], [address] EST GFR - AA 79 mL/min Normal >60 [facility] Comment on above: Order Comment: 107.1 Result Comment: Afri can [place] GFR Calc Performed By: #### L 503.6030, L503.0105, L506.0250, L500.4050, L100.0100, L101.9900 #### [facility] [address] [place], [address] GAP 7 Normal 5-15 [facility] Comment on above: Order Comment: 107.1 Performed By: #### L 503.6030, L503.0105, L506.0250, L500.4050, L100.0100, L101.9900 #### [facility] [address] [place], [address] GFR/1.73 sq M.predicted among non-blacks MDRD (S/P/Bld) [Vol rate/Area] 65 mL/min/{1.73_m2} Normal >60 [facility] Comment on above: Order Comment: 107.1 Result Comment: Non- GFR Calc Performed By: #### L 503.6030, L503.0105, L506.0250, L500.4050, L100.0100, L101.9900 #### [facility] [address] [place], [address] Globulin (S) [Mass/Vol] 3.1 g/dL Normal 2.2-4.2 [facility] Comment on above: Order Comment: 107.1 Performed By: #### L 503.6030, L503.0105, L506.0250, L500.4050, L100.0100, L101.9900 #### [facility] [address] [place], [address] Glucose [Mass/Vol] 192 mg/dL High 74-106 [facility] Comment on above: Order Comment: 107.1 Result Comment: Fast ing Glucose result greater than or equal to 126 mg/dL suggests DIABETES MELLITUS per A.D.A. criteria. Performed By: #### L 503.6030, L503.0105, L506.0250, L500.4050, L100.0100, L101.9900 #### [facility] [address] [place], [address] Potassium [Moles/Vol] 3.9 mmol/L Normal 3.5-5.[address] [facility] Comment on above: Order Comment: 107.1 Performed By: #### L 503.6030, L503.0105, L506.0250, L500.4050, L100.0100, L101.9900 #### [facility] [address] [place], [address] Sodium [Moles/Vol] 137 mmol/L Normal 136-145 [facility] Comment on above: Order Comment: 107.1 Performed By: #### L 503.6030, L503.0105, L506.0250, L500.4050, L100.0100, L101.9900 #### [facility] [address] [place], [address] T PROT 5.2 g/dL Low 6.4-8.2 [facility] Comment on above: Order Comment: 107.1 Performed By: #### L 503.6030, L503.0105, L506.0250, L500.4050, L100.0100, L101.9900 #### [facility] [address] [place], [place], [id number] Urea nitrogen [Mass/Vol] 27 mg/dL High 7-18 [facility] Comment on above: Order Comment: 107.1 Performed By: #### L 503.6030, L503.0105, L506.0250, L500.4050, L100.0100, L101.9900 #### [facility] [address] [place], [place], [id number] Eosinophil percentageOrdered By: Mario Mak on 2024 Eosinophils/100 WBC (Bld) 6.3 % High 0-5 [facility] Erythrocyte Sed Rateon 12-31 SED RATE 27 mm/hr Normal 0-30 [facility] Comment on above: Order Comment: 107.1 Performed By: #### L 503.6030, L503.0105, L506.0250, L500.4050, L100.0100, L101.9900 #### [facility] [address] [place], [place], [id number] Erythrocyte distribution wid th (RBC) [Ratio]Ordered By: Mario Mak on 2024 Erythrocyte distribution width (RBC) [Entitic vol] 56.3 fL High 35.1-43.9 [facility] Erythrocyte distribution wid th ratioOrdered By: Mario Mak on 2024 Erythrocyte distribution width (RBC) [Ratio] 17.1 % High 11.6-14.6 [facility] Erythrocyte distribution wid th standard deviationOrdered By: Mario Mak on 2024 Erythrocyte distribution width (RBC) [Ratio] 56.3 fl High 35.1-43.9 [facility] Erythrocyte sedimentation ra teOrdered By: Mario Mak on 2024 ESR (Bld) [Velocity] 27 mm/h 0-30 [facility] Estimated glomerular filtrat ion rate (GFR) AmericanOrdered By: Mario Mak on 2024 Estimated GFR (MDRD) Amer 79 mL/min >60 [facility] Comment on above: GFR Calc Glomerular filtration rate ( GFR) estimationOrdered By: Mario Mak on 2024 Estimated GFR (MDRD) Non-Af Amer 65 mL/min >60 [facility] Comment on above: Non- GFR Calc GFR/1.73 sq M.predicted among non-blacks MDRD (S/P/Bld) [Vol rate/Area] 65 mL/min/{1.73_m2} >60 [facility] Comment on above: Non- GFR Calc Glucose measurementOrdered B y: Mario Mak on 2024 Glucose [Mass/Vol] 192 mg/dL High 74-106 [facility] Comment on above: Fasting Glucose resu lt greater than or equal to 126 mg/dL suggests DIABETES MELLITUS per A.D.A. criteria. Hematocrit Auto (Bld) [Volum e fraction]Ordered By: Mario Mak on 2024 Hematocrit (Bld) [Volume fraction] 29.8 % Low 37-47 [facility] Hemoglobin measurementOrdere d By: Mario Mak on 2024 Hemoglobin (Bld) [Mass/Vol] 9.4 g/dL Low 12.0-15.0 [facility] Immature granulocytes/100 WB C Auto (Bld)Ordered By: Mario Mak on 2024 Immature granulocytes/100 WBC (Bld) 1.100 % High 0.0-0.9 [facility] Comment on above: IG% - Immature Granu locytes (promyelocytes, myelocytes and metamyelocytes) > 1% indicates that a LEFT SHIFT is Present. Laboratory - Chemistry and C hemistry - challengeOrdered By: Mario Mak on 2024 AST [Catalytic activity/Vol] 15 U/L 15-37 [facility] Lymphocytes Auto (Unsp spec) [#/Vol]Ordered By: Mario Mak on 2024 Lymphocytes (Bld) [#/Vol] 0.88 10*3/uL 0.83-4.51 [facility] Lymphocytes/100 WBC Auto (Un sp spec)Ordered By: Mario Mak on 2024 Lymphocytes/100 WBC (Bld) 11.9 % Low 19-41 [facility] MCV (mean corpuscular volume ) determinationOrdered By: Mario Mak on 2024 MCV (RBC) [Entitic vol] 90.0 fL 81-99 [facility] Mean corpuscular hemoglobin (MCH) determinationOrdered By: Mario Mak on 2024 MCH (RBC) [Entitic mass] 28.4 pg 27.0-32.0 [facility] Mean corpuscular hemoglobin concentration (MCHC) determinationOrdered By: Mario Mak on 2024 MCHC (RBC) [Mass/Vol] 31.5 g/dL Low 32-[address] [facility] Mean platelet volume determi nationOrdered By: Mario Mak on 2024 Platelet mean volume (Bld) [Entitic vol] 9.2 fL 6.2-12.0 [facility] Monocyte percentageOrdered B y: Mario Mak on 2024 Monocytes/100 WBC (Bld) 7.5 % 0-10 [facility] Neutrophil percentageOrdered By: Mario Mak on 2024 Neutrophils/100 WBC (Bld) 72.9 % High 47-70 [facility] Nucleated red blood cell per centageOrdered By: Mario Mak on 2024 Nucleated RBC/100 WBC (Bld) [Ratio] 0 % 0-5 [facility] Platelet countOrdered By: Moreno on 2024 Platelets (Bld) [#/Vol] 361 10*3/uL 150-450 [facility] Potassium measurementOrdered By: Mario Mak on 2024 Potassium [Moles/Vol] 3.9 mmol/L 3.5-5.[address] [facility] RBC Auto (Bld) [#/Vol]Ordere d By: Mario Mak on 2024 RBC (Bld) [#/Vol] 3.31 10*6/uL Low 4.2-5.[address] [facility] Serum anion gap measurementO rdered By: Mario Mak on 2024 Anion gap [Moles/Vol] 7 mmol/L 5-[address] [facility] Serum globulin measurementOr dered By: Mario Mak on 2024 Globulin (S) [Mass/Vol] 3.1 g/dL 2.2-4.2 [facility] Serum or plasma alanine melara otransferase (ALT) measurementOrdered By: Mario Mak on 2024 ALT [Catalytic activity/Vol] U/L Low 13-56 [facility] Serum or plasma albumin roma urement (mass/volume)Ordered By: Mario Mak on 2024 Albumin [Mass/Vol] 2.1 g/dL Low 3.2-5.0 [facility] Serum or plasma alkaline krystal sphatase measurementOrdered By: Mario Mak on 2024 ALP [Catalytic activity/Vol] 102 U/L 45-117 [facility] Serum or plasma calcium roma urement (mass/volume)Ordered By: Mario Mak on 2024 Calcium [Mass/Vol] 8.7 mg/dL 8.5-10.1 [facility] Serum or plasma creatinine m easurement (mass/volume)Ordered By: Mario Mak on 2024 Creatinine [Mass/Vol] 0.87 mg/dL 0.55-1.[address] [facility] Comment on above: The validity of the calculated GFR & GFRAA in patients over 70 years has not been determined. Clinical correlation is essential. Serum or plasma urea nitroge n measurement (mass/volume)Ordered By: Mario Mak on 2024 Urea nitrogen [Mass/Vol] 27 mg/dL High 7-18 [facility] Sodium levelOrdered By: Mario Mak on 2024 Sodium [Moles/Vol] 137 mmol/L 136-145 [facility] Total proteinOrdered By: Shwetha Mak on 2024 Protein [Mass/Vol] 5.2 g/dL Low 6.4-8.2 [facility] White blood cell (WBC) count Ordered By: Mario Mak on 2024 WBC (Bld) [#/Vol] 7.4 10*3/uL 4.4-11.0 [facility] CNOVon 12-26-2024 CNOV Normal [facility] CNPNon 12-26-2024 DRAKEN Telephone (INTMIN) YUSUF MEDINA ([id number]) 1935 [address] Date Time Provider Department 12/26/24 MIGDALIA CRAMER During your visit today, we recorded the following information about you: Nikia Trinidad 12/26/2024 9:24 AM Signed Patients caregiver demetria tapia calling to have her [employer] message she sent below addressed. Yusuf Robles's sons and are in town to make an assessment whether she is able to go home from rehab. Can you talk with them to help with their decision? Please call Nathnaiel Medina at [phone]. They are here till Tuesday 12 noon. [...] 12/26/2024 2:46 PM Signed Noted Willie Kaur APRN.CELL ROOM SUPERVISOR Allergies As of Date: 12/26/2024 (No Known [...] this patient by: CAREGIVER José Miguel [facility] Problem List As Of Date [...] 02/19/2011 02/12/2014 (more content not included)... Normal [facility] Absolute lymphocyte countOrd ered By: Mario Mak on 12-24-2024 Lymphocytes Auto (Unsp spec) [#/Vol] 0.98 10*3/uL 0.83-4.51 [facility] Absolute neutrophil countOrd ered By: Mario Mak on 12-24-2024 Neutrophils (Bld) [#/Vol] 3.8 10*3/uL 2.0-7.7 [facility] Albumin to globulin ratioOrd ered By: Mario Mak on 12-24-2024 Albumin/Globulin [Mass ratio] 0.6 {ratio} Low 0.9-2.4 [facility] Automated lymphocyte count a s percentage of total leukocytesOrdered By: Mario Mak on 12-24-2024 Lymphocytes/100 WBC Auto (Unsp spec) 17.8 % Low 19-41 [facility] Basophil percentageOrdered B y: Mario Mak on 12-24-2024 Basophils/100 WBC (Bld) 0.5 % 0-1 [facility] Bilirubin, totalOrdered By: Mario Mak on 12-24-2024 Bilirubin [Mass/Vol] 0.30 mg/dL 0.20-1.00 [facility] Comment on above: For patients on eltr ombopag therapy, use of Dimension [place] TBIL is not recommended. Blood urea nitrogen (BUN)/cr eatinine ratioOrdered By: Mario Mak on 12-24-2024 Urea nitrogen/Creatinine [Mass ratio] 30.0 mg/mg High 10-20 [facility] CBC W/Diff, Automatedon 12-15 Absolute Lymph 0.98 X10 3/uL Normal 0.83-4.51 [facility] Comment on above: Order Comment: 107.1 Performed By: #### L 503.6030, L503.0105, L506.0250, L500.4050, L100.0100, L101.9900 #### [facility] [address] [place], [address] Absolute Neut 3.8 X10 3/uL Normal 2.0-7.7 [facility] Comment on above: Order Comment: 107.1 Performed By: #### L 503.6030, L503.0105, L506.0250, L500.4050, L100.0100, L101.9900 #### [facility] [address] [place], [address] Basophils/100 WBC (Bld) 0.5 % Normal 0-1 [facility] Comment on above: Order Comment: 107.1 Performed By: #### L 503.6030, L503.0105, L506.0250, L500.4050, L100.0100, L101.9900 #### [facility] [address] [place], [address] Eosinophils/100 WBC (Bld) 5.1 % High 0-5 [facility] Comment on above: Order Comment: 107.1 Performed By: #### L 503.6030, L503.0105, L506.0250, L500.4050, L100.0100, L101.9900 #### [facility] [address] [place], [address] Erythrocyte distribution width (RBC) [Ratio] 16.8 % High 11.6-14.6 [facility] Comment on above: Order Comment: 107.1 Performed By: #### L 503.6030, L503.0105, L506.0250, L500.4050, L100.0100, L101.9900 #### [facility] [address] [place], [address] Hematocrit (Bld) [Volume fraction] 27.5 % Low 37-47 [facility] Comment on above: Order Comment: 107.1 Performed By: #### L 503.6030, L503.0105, L506.0250, L500.4050, L100.0100, L101.9900 #### [facility] [address] [place], [address] Hemoglobin (Bld) [Mass/Vol] 8.9 g/dL Low 12.0-15.0 [facility] Comment on above: Order Comment: 107.1 Performed By: #### L 503.6030, L503.0105, L506.0250, L500.4050, L100.0100, L101.9900 #### [facility] [address] [place], [address] IG% 0.900 Normal 0.0-0.9 [facility] Comment on above: Order Comment: 107.1 Result Comment: IG% - Immature Granulocytes (promyelocytes, myelocytes and metamyelocytes) > 1% indicates that a LEFT SHIFT is Present. Performed By: #### L 503.6030, L503.0105, L506.0250, L500.4050, L100.0100, L101.9900 #### [facility] [address] [place], [address] Lymphocytes/100 WBC (Bld) 17.8 % Low 19-41 [facility] Comment on above: Order Comment: 107.1 Performed By: #### L 503.6030, L503.0105, L506.0250, L500.4050, L100.0100, L101.9900 #### [facility] [address] [place], [address] MCH (RBC) [Entitic mass] 29.0 pg Normal 27.0-32.0 [facility] Comment on above: Order Comment: 107.1 Performed By: #### L 503.6030, L503.0105, L506.0250, L500.4050, L100.0100, L101.9900 #### [facility] [address] [place], [address] MCHC (RBC) [Mass/Vol] 32.4 g/dL Normal 32-[address] [facility] Comment on above: Order Comment: 107.1 Performed By: #### L 503.6030, L503.0105, L506.0250, L500.4050, L100.0100, L101.9900 #### [facility] [address] [place], [address] MCV (RBC) [Entitic vol] 89.6 fL Normal 81-99 [facility] Comment on above: Order Comment: 107.1 Performed By: #### L 503.6030, L503.0105, L506.0250, L500.4050, L100.0100, L101.9900 #### [facility] [address] [place], [address] Monocytes/100 WBC (Bld) 7.3 % Normal 0-10 [facility] Comment on above: Order Comment: 107.1 Performed By: #### L 503.6030, L503.0105, L506.0250, L500.4050, L100.0100, L101.9900 #### [facility] [address] [place], [address] Neutrophils/100 WBC (Bld) 68.4 % Normal 47-70 [facility] Comment on above: Order Comment: 107.1 Performed By: #### L 503.6030, L503.0105, L506.0250, L500.4050, L100.0100, L101.9900 #### [facility] [address] [place], [address] Nucleated RBC (Bld) [#/Vol] 0 10*3/uL Normal 0-5 [facility] Comment on above: Order Comment: 107.1 Performed By: #### L 503.6030, L503.0105, L506.0250, L500.4050, L100.0100, L101.9900 #### [facility] [address] [place], [address] Platelet mean volume (Bld) [Entitic vol] 9.3 fL Normal 6.2-12.0 [facility] Comment on above: Order Comment: 107.1 Performed By: #### L 503.6030, L503.0105, L506.0250, L500.4050, L100.0100, L101.9900 #### [facility] [address] [place], [address] Platelets (Bld) [#/Vol] 309 10*3/uL Normal 150-450 [facility] Comment on above: Order Comment: 107.1 Performed By: #### L 503.6030, L503.0105, L506.0250, L500.4050, L100.0100, L101.9900 #### [facility] [address] [place], [address] RBC (Bld) [#/Vol] 3.07 10*6/uL Low 4.2-5.[address] [facility] Comment on above: Order Comment: 107.1 Performed By: #### L 503.6030, L503.0105, L506.0250, L500.4050, L100.0100, L101.9900 #### [facility] [address] [place], [address] RDW SD 55.5 fl High 35.1-43.9 [facility] Comment on above: Order Comment: 107.1 Performed By: #### L 503.6030, L503.0105, L506.0250, L500.4050, L100.0100, L101.9900 #### [facility] [address] [place], [address] WBC (Bld) [#/Vol] 5.5 10*3/uL Normal 4.4-11.0 [facility] Comment on above: Order Comment: 107.1 Performed By: #### L 503.6030, L503.0105, L506.0250, L500.4050, L100.0100, L101.9900 #### [facility] [address] [place], [address] Carbon dioxide measurementOr dered By: Mario Mak on 12-24-2024 CO2 [Moles/Vol] 29.0 mmol/L 21.0-32.0 [facility] Chloride measurementOrdered By: Mario Mak on 12-24-2024 Chloride [Moles/Vol] 106 mmol/L 98-107 [facility] Comprehensive Metabolic Prof ilon 12-24-2024 Albumin [Mass/Vol] 2.0 g/dL Low 3.2-5.0 [facility] Comment on above: Order Comment: 107.1 Performed By: #### L 503.6030, L503.0105, L506.0250, L500.4050, L100.0100, L101.9900 #### [facility] [address] [place], [address] Albumin/Globulin [Mass ratio] 0.6 {ratio} Low 0.9-2.4 [facility] Comment on above: Order Comment: 107.1 Performed By: #### L 503.6030, L503.0105, L506.0250, L500.4050, L100.0100, L101.9900 #### [facility] [address] [place], [address] ALK P 108 U/L Normal 45-117 [facility] Comment on above: Order Comment: 107.1 Performed By: #### L 503.6030, L503.0105, L506.0250, L500.4050, L100.0100, L101.9900 #### [facility] [address] [place], [address] ALT [Catalytic activity/Vol] U/L Low 13-56 [facility] Comment on above: Order Comment: 107.1 Performed By: #### L 503.6030, L503.0105, L506.0250, L500.4050, L100.0100, L101.9900 #### [facility] [address] [place], [address] AST [Catalytic activity/Vol] 17 U/L Normal 15-37 [facility] Comment on above: Order Comment: 107.1 Performed By: #### L 503.6030, L503.0105, L506.0250, L500.4050, L100.0100, L101.9900 #### [facility] [address] [place], [address] Bilirubin [Mass/Vol] 0.30 mg/dL Normal 0.20-1.00 [facility] Comment on above: Order Comment: 107.1 Result Comment: For patients on eltrombopag therapy, use of Dimension [place] TBIL is not recommended. Performed By: #### L 503.6030, L503.0105, L506.0250, L500.4050, L100.0100, L101.9900 #### [facility] [address] [place], [address] BUN/CRE 30.0 RATIO High 10-20 [facility] Comment on above: Order Comment: 107.1 Performed By: #### L 503.6030, L503.0105, L506.0250, L500.4050, L100.0100, L101.9900 #### [facility] [address] [place], [address] CA,Total 8.8 mg/dL Normal 8.5-10.1 [facility] Comment on above: Order Comment: 107.1 Performed By: #### L 503.6030, L503.0105, L506.0250, L500.4050, L100.0100, L101.9900 #### [facility] [address] [place], [address] Chloride [Moles/Vol] 106 mmol/L Normal 98-107 [facility] Comment on above: Order Comment: 107.1 Performed By: #### L 503.6030, L503.0105, L506.0250, L500.4050, L100.0100, L101.9900 #### [facility] [address] [place], [address] CO2 [Moles/Vol] 29.0 mmol/L Normal 21.0-32.0 [facility] Comment on above: Order Comment: 107.1 Performed By: #### L 503.6030, L503.0105, L506.0250, L500.4050, L100.0100, L101.9900 #### [facility] [address] [place], [address] Creatinine [Mass/Vol] 0.83 mg/dL Normal 0.55-1.[address] [facility] Comment on above: Order Comment: 107.1 Result Comment: The validity of the calculated GFR GFRAA in patients over 70 years has not been determined. Clinical correlation is essential. Performed By: #### L 503.6030, L503.0105, L506.0250, L500.4050, L100.0100, L101.9900 #### [facility] [address] [place], [address] EST GFR - AA 83 mL/min Normal >60 [facility] Comment on above: Order Comment: 107.1 Result Comment: Afri can [place] GFR Calc Performed By: #### L 503.6030, L503.0105, L506.0250, L500.4050, L100.0100, L101.9900 #### [facility] [address] [place], [address] GAP 7 Normal 5-15 [facility] Comment on above: Order Comment: 107.1 Performed By: #### L 503.6030, L503.0105, L506.0250, L500.4050, L100.0100, L101.9900 #### [facility] [address] [place], [address] GFR/1.73 sq M.predicted among non-blacks MDRD (S/P/Bld) [Vol rate/Area] 68 mL/min/{1.73_m2} Normal >60 [facility] Comment on above: Order Comment: 107.1 Result Comment: Non- GFR Calc Performed By: #### L 503.6030, L503.0105, L506.0250, L500.4050, L100.0100, L101.9900 #### [facility] [address] [place], [address] Globulin (S) [Mass/Vol] 3.4 g/dL Normal 2.2-4.2 [facility] Comment on above: Order Comment: 107.1 Performed By: #### L 503.6030, L503.0105, L506.0250, L500.4050, L100.0100, L101.9900 #### [facility] [address] [place], [address] Glucose [Mass/Vol] 76 mg/dL Normal 74-106 [facility] Comment on above: Order Comment: 107.1 Performed By: #### L 503.6030, L503.0105, L506.0250, L500.4050, L100.0100, L101.9900 #### [facility] [address] [place], [address] Potassium [Moles/Vol] 4.0 mmol/L Normal 3.5-5.[address] [facility] Comment on above: Order Comment: 107.1 Performed By: #### L 503.6030, L503.0105, L506.0250, L500.4050, L100.0100, L101.9900 #### [facility] [address] [place], [address] Sodium [Moles/Vol] 141 mmol/L Normal 136-145 [facility] Comment on above: Order Comment: 107.1 Performed By: #### L 503.6030, L503.0105, L506.0250, L500.4050, L100.0100, L101.9900 #### [facility] [address] [place], [place], [id number] T PROT 5.4 g/dL Low 6.4-8.2 [facility] Comment on above: Order Comment: 107.1 Performed By: #### L 503.6030, L503.0105, L506.0250, L500.4050, L100.0100, L101.9900 #### [facility] [address] [place], [place], [id number] Urea nitrogen [Mass/Vol] 25 mg/dL High 7-18 [facility] Comment on above: Order Comment: 107.1 Performed By: #### L 503.6030, L503.0105, L506.0250, L500.4050, L100.0100, L101.9900 #### [facility] [address] [place], [place], [id number] Eosinophil percentageOrdered By: Mario Mak on 12-24-2024 Eosinophils/100 WBC (Bld) 5.1 % High 0-5 [facility] Erythrocyte Sed Rateon 12-24 SED RATE 38 mm/hr High 0-30 [facility] Comment on above: Order Comment: 107.1 Performed By: #### L 503.6030, L503.0105, L506.0250, L500.4050, L100.0100, L101.9900 #### [facility] [address] [place], [place], [id number] Erythrocyte distribution wid th (RBC) [Ratio]Ordered By: Mario Mak on 12-24-2024 Erythrocyte distribution width (RBC) [Entitic vol] 55.5 fL High 35.1-43.9 [facility] Erythrocyte distribution wid th ratioOrdered By: Mario Mak on 12-24-2024 Erythrocyte distribution width (RBC) [Ratio] 16.8 % High 11.6-14.6 [facility] Erythrocyte distribution wid th standard deviationOrdered By: Mario Mak on 12-24-2024 Erythrocyte distribution width (RBC) [Ratio] 55.5 fl High 35.1-43.9 [facility] Erythrocyte sedimentation ra teOrdered By: Mario Mak on 12-24-2024 ESR (Bld) [Velocity] 38 mm/h High 0-30 [facility] Estimated glomerular filtrat ion rate (GFR) AmericanOrdered By: Mario Mak on 12-24-2024 Estimated GFR (MDRD) Amer 83 mL/min >60 [facility] Comment on above: GFR Calc Folates, (Folic Acid)on 12-15 FOLATES 6.70 ng/mL Normal 3.1-55.4 [facility] Comment on above: Order Comment: 107.1 N Performed By: #### L 503.6030, L503.0105, L506.0250, L500.4050, L100.0100, L101.9900 #### [facility] [place], [address] Folic acid measurementOrdere d By: Mario Mak on 12-24-2024 Folate 6.70 ng/mL 3.1-55.4 [facility] Glomerular filtration rate ( GFR) estimationOrdered By: Mario Mak on 12-24-2024 Estimated GFR (MDRD) Non-Af Amer 68 mL/min >60 [facility] Comment on above: Non- GFR Calc GFR/1.73 sq M.predicted among non-blacks MDRD (S/P/Bld) [Vol rate/Area] 68 mL/min/{1.73_m2} >60 [facility] Comment on above: Non- GFR Calc Glucose measurementOrdered B y: Mario Mak on 12-24-2024 Glucose [Mass/Vol] 76 mg/dL 74-106 [facility] Hematocrit Auto (Bld) [Volum e fraction]Ordered By: Mario Mak on 12-24-2024 Hematocrit (Bld) [Volume fraction] 27.5 % Low 37-47 [facility] Hemoglobin measurementOrdere d By: Mario Mak on 12-24-2024 Hemoglobin (Bld) [Mass/Vol] 8.9 g/dL Low 12.0-15.0 [facility] Immature granulocytes/100 WB C Auto (Bld)Ordered By: Mario Mak on 12-24-2024 Immature granulocytes/100 WBC (Bld) 0.900 % 0.0-0.9 [facility] Comment on above: IG% - Immature Granu locytes (promyelocytes, myelocytes and metamyelocytes) > 1% indicates that a LEFT SHIFT is Present. Iron (Unsp spec) [Mass/Mass] Ordered By: Mario Mak on 12-24-2024 Iron [Mass/Vol] 58 ug/dL 50-170 [facility] Iron measurement (mass/mass) Ordered By: Mario Mak on 12-24-2024 Iron (Unsp spec) [Mass/Mass] 58 ug/dL 50-170 [facility] Iron saturation [Mass fracti on]Ordered By: Mario Mak on 12-24-2024 Iron Saturation 35.4 % 15.0-55.0 [facility] Iron+Iron Binding Capacityon 12-24-2024 Iron [Mass/Vol] 58 ug/dL Normal 50-170 [facility] Comment on above: Order Comment: 107.1 Performed By: #### L 503.6030, L503.0105, L506.0250, L500.4050, L100.0100, L101.9900 #### [facility] [address] [place], [place], [id number] (244 IRON SATURATION 35.4 Normal 15.0-55.0 [facility] Comment on above: Order Comment: 107.1 Performed By: #### L 503.6030, L503.0105, L506.0250, L500.4050, L100.0100, L101.9900 #### [facility] [address] [place], [address] TIBC 164 ug/dL Low 250-450 [facility] Comment on above: Order Comment: 107.1 Performed By: #### L 503.6030, L503.0105, L506.0250, L500.4050, L100.0100, L101.9900 #### [facility] [place], [address] Laboratory - Chemistry and C hemistry - challengeOrdered By: Mario Mak on 12-24-2024 AST [Catalytic activity/Vol] 17 U/L 15-37 [facility] Lymphocytes Auto (Unsp spec) [#/Vol]Ordered By: Mraio Mak on 12-24-2024 Lymphocytes (Bld) [#/Vol] 0.98 10*3/uL 0.83-4.51 [facility] Lymphocytes/100 WBC Auto (Un sp spec)Ordered By: Mario Mak on 12-24-2024 Lymphocytes/100 WBC (Bld) 17.8 % Low 19-41 [facility] MCV (mean corpuscular volume ) determinationOrdered By: Mario Mak on 12-24-2024 MCV (RBC) [Entitic vol] 89.6 fL 81-99 [facility] Mean corpuscular hemoglobin (MCH) determinationOrdered By: Mario Mak on 12-24-2024 MCH (RBC) [Entitic mass] 29.0 pg 27.0-32.0 [facility] Mean corpuscular hemoglobin concentration (MCHC) determinationOrdered By: Mario Mak on 12-24-2024 MCHC (RBC) [Mass/Vol] 32.4 g/dL 32-[address] [facility] Mean platelet volume determi nationOrdered By: Mario Mak on 12-24-2024 Platelet mean volume (Bld) [Entitic vol] 9.3 fL 6.2-12.0 [facility] Monocyte percentageOrdered B y: Mario Mak on 12-24-2024 Monocytes/100 WBC (Bld) 7.3 % 0-10 [facility] Neutrophil percentageOrdered By: Mario Mak on 12-24-2024 Neutrophils/100 WBC (Bld) 68.4 % 47-70 [facility] Nucleated red blood cell per centageOrdered By: Mario Mak on 12-24-2024 Nucleated RBC/100 WBC (Bld) [Ratio] 0 % 0-5 [facility] Platelet countOrdered By: Moreno on 12-24-2024 Platelets (Bld) [#/Vol] 309 10*3/uL 150-450 [facility] Potassium measurementOrdered By: Mario Mak on 12-24-2024 Potassium [Moles/Vol] 4.0 mmol/L 3.5-5.[address] [facility] RBC Auto (Bld) [#/Vol]Ordere d By: Mario Mak on 12-24-2024 RBC (Bld) [#/Vol] 3.07 10*6/uL Low 4.2-5.[address] [facility] Serum anion gap measurementO rdered By: Mario Mak on 12-24-2024 Anion gap [Moles/Vol] 7 mmol/L 5-[address] [facility] Serum globulin measurementOr dered By: Mario Mak on 12-24-2024 Globulin (S) [Mass/Vol] 3.4 g/dL 2.2-4.2 [facility] Serum or plasma alanine melara otransferase (ALT) measurementOrdered By: Mario Mak on 12-24-2024 ALT [Catalytic activity/Vol] U/L Low 13-56 [facility] Serum or plasma albumin roma urement (mass/volume)Ordered By: Mario Mak on 12-24-2024 Albumin [Mass/Vol] 2.0 g/dL Low 3.2-5.0 [facility] Serum or plasma alkaline krystal sphatase measurementOrdered By: Mario Mak on 12-24-2024 ALP [Catalytic activity/Vol] 108 U/L 45-117 [facility] Serum or plasma calcium roma urement (mass/volume)Ordered By: Mario Mak on 12-24-2024 Calcium [Mass/Vol] 8.8 mg/dL 8.5-10.1 [facility] Serum or plasma creatinine m easurement (mass/volume)Ordered By: Mario Mak on 12-24-2024 Creatinine [Mass/Vol] 0.83 mg/dL 0.55-1.[address] [facility] Comment on above: The validity of the calculated GFR & GFRAA in patients over 70 years has not been determined. Clinical correlation is essential. Serum or plasma iron saturat ion measurement (mass fraction)Ordered By: Mario Mak on 12-24-2024 Iron saturation [Mass fraction] 35.4 % 15.0-55.0 [facility] Serum or plasma urea nitroge n measurement (mass/volume)Ordered By: Mario Mak on 12-24-2024 Urea nitrogen [Mass/Vol] 25 mg/dL High 7-18 [facility] Sodium levelOrdered By: Mario Mak on 12-24-2024 Sodium [Moles/Vol] 141 mmol/L 136-145 [facility] TIBCOrdered By: Mario Mak on 12-24-2024 Total Iron Binding Capacity 164 ug/dL Low 250-450 [facility] Total proteinOrdered By: Shwetha Mak on 12-24-2024 Protein [Mass/Vol] 5.4 g/dL Low 6.4-8.2 [facility] Vitamin B12on 12-24-2024 Cobalamin (Vitamin B12) [Mass/Vol] 407 pg/mL Normal 211-911 [facility] Comment on above: Order Comment: 107.1 Performed By: #### L 503.6030, L503.0105, L506.0250, L500.4050, L100.0100, L101.9900 #### [facility] [place], [address] Vitamin B12 measurementOrder ed By: Mario Mak on 12-24-2024 Cobalamin (Vitamin B12) [Mass/Vol] 407 pg/mL 211-911 [facility] White blood cell (WBC) count Ordered By: Mario Mak on 12-24-2024 WBC (Bld) [#/Vol] 5.5 10*3/uL 4.4-11.0 [facility] Albumin to globulin ratioOrd ered By: Mario Mak on 12-17-2024 Albumin/Globulin [Mass ratio] 0.6 {ratio} Low 0.9-2.4 [facility] Bilirubin, totalOrdered By: Mario Mak on 12-17-2024 Bilirubin [Mass/Vol] 0.30 mg/dL 0.20-1.00 [facility] Comment on above: For patients on eltr ombopag therapy, use of Dim[place] TBIL is not recommended. Blood urea nitrogen (BUN)/cr eatinine ratioOrdered By: Mario Mak on 12-17-2024 Urea nitrogen/Creatinine [Mass ratio] 38.9 mg/mg High 10-20 [facility] CBC-Complete Blood Cnt No Di ffon 12-17-2024 Erythrocyte distribution width (RBC) [Ratio] 17.8 % High 11.6-14.6 [facility] Comment on above: Order Comment: 107.1 Performed By: #### L 101.9900, L100.0500, L500.4050 #### [facility] [address] [place], [address] Hematocrit (Bld) [Volume fraction] 24.9 % Low 37-47 [facility] Comment on above: Order Comment: 107.1 Performed By: #### L 101.9900, L100.0500, L500.4050 #### [facility] [address] [place], [address] Hemoglobin (Bld) [Mass/Vol] 7.7 g/dL Low 12.0-15.0 [facility] Comment on above: Order Comment: 107.1 Performed By: #### L 101.9900, L100.0500, L500.4050 #### [facility] [address] [place], [address] MCH (RBC) [Entitic mass] 28.3 pg Normal 27.0-32.0 [facility] Comment on above: Order Comment: 107.1 Performed By: #### L 101.9900, L100.0500, L500.4050 #### [facility] [address] [place], [address] MCHC (RBC) [Mass/Vol] 30.9 g/dL Low 32-[address] [facility] Comment on above: Order Comment: 107.1 Performed By: #### L 101.9900, L100.0500, L500.4050 #### [facility] [address] [place], [address] MCV (RBC) [Entitic vol] 91.5 fL Normal 81-99 [facility] Comment on above: Order Comment: 107.1 Performed By: #### L 101.9900, L100.0500, L500.4050 #### [facility] [address] [place], [address] Platelet mean volume (Bld) [Entitic vol] 8.7 fL Normal 6.2-12.0 [facility] Comment on above: Order Comment: 107.1 Performed By: #### L 101.9900, L100.0500, L500.4050 #### [facility] [address] [place], [address] Platelets (Bld) [#/Vol] 391 10*3/uL Normal 150-450 [facility] Comment on above: Order Comment: 107.1 Performed By: #### L 101.9900, L100.0500, L500.4050 #### [facility] [address] [place], [address] RBC (Bld) [#/Vol] 2.72 10*6/uL Low 4.2-5.[address] [facility] Comment on above: Order Comment: 107.1 Performed By: #### L 101.9900, L100.0500, L500.4050 #### [facility] [address] [place], [address] RDW SD 59.4 fl High 35.1-43.9 [facility] Comment on above: Order Comment: 107.1 Performed By: #### L 101.9900, L100.0500, L500.4050 #### [facility] [address] [place], [address] WBC (Bld) [#/Vol] 7.6 10*3/uL Normal 4.4-11.0 [facility] Comment on above: Order Comment: 107.1 Performed By: #### L 101.9900, L100.0500, L500.4050 #### [facility] [address] [place], [address] Carbon dioxide measurementOr dered By: Mario Mak on 12-17-2024 CO2 [Moles/Vol] 25.0 mmol/L 21.0-32.0 [facility] Chloride measurementOrdered By: Mario Mak on 12-17-2024 Chloride [Moles/Vol] 104 mmol/L 98-107 [facility] Comprehensive Metabolic Prof ilon 12-17-2024 Albumin [Mass/Vol] 1.9 g/dL Low 3.2-5.0 [facility] Comment on above: Order Comment: 107.1 Performed By: #### L 101.9900, L100.0500, L500.4050 #### [facility] [address] [place], [address] Albumin/Globulin [Mass ratio] 0.6 {ratio} Low 0.9-2.4 [facility] Comment on above: Order Comment: 107.1 Performed By: #### L 101.9900, L100.0500, L500.4050 #### [facility] [address] [place], [address] ALK P 96 U/L Normal 45-117 [facility] Comment on above: Order Comment: 107.1 Performed By: #### L 101.9900, L100.0500, L500.4050 #### [facility] [address] [place], [address] ALT [Catalytic activity/Vol] 9 U/L Low 13-56 [facility] Comment on above: Order Comment: 107.1 Performed By: #### L 101.9900, L100.0500, L500.4050 #### [facility] [address] [place], [address] AST [Catalytic activity/Vol] 26 U/L Normal 15-37 [facility] Comment on above: Order Comment: 107.1 Performed By: #### L 101.9900, L100.0500, L500.4050 #### [facility] [address] [place], [address] Bilirubin [Mass/Vol] 0.30 mg/dL Normal 0.20-1.00 [facility] Comment on above: Order Comment: 107.1 Result Comment: For patients on eltrombopag therapy, use of Dim[place] TBIL is not recommended. Performed By: #### L 101.9900, L100.0500, L500.4050 #### [facility] [address] [place], [address] BUN/CRE 38.9 RATIO High 10-20 [facility] Comment on above: Order Comment: 107.1 Performed By: #### L 101.9900, L100.0500, L500.4050 #### [facility] [address] [place], [address] CA,Total 8.4 mg/dL Low 8.5-10.1 [facility] Comment on above: Order Comment: 107.1 Performed By: #### L 101.9900, L100.0500, L500.4050 #### [facility] [address] [place], [address] Chloride [Moles/Vol] 104 mmol/L Normal 98-107 [facility] Comment on above: Order Comment: 107.1 Performed By: #### L 101.9900, L100.0500, L500.4050 #### [facility] [address] [place], [address] CO2 [Moles/Vol] 25.0 mmol/L Normal 21.0-32.0 [facility] Comment on above: Order Comment: 107.1 Performed By: #### L 101.9900, L100.0500, L500.4050 #### [facility] [address] [place], [address] Creatinine [Mass/Vol] 0.77 mg/dL Normal 0.55-1.[address] [facility] Comment on above: Order Comment: 107.1 Result Comment: The validity of the calculated GFR GFRAA in patients over 70 years has not been determined. Clinical correlation is essential. Performed By: #### L 101.9900, L100.0500, L500.4050 #### [facility] [address] [place], [address] EST GFR - AA 91 mL/min Normal >60 [facility] Comment on above: Order Comment: 107.1 Result Comment: Afri can [place] GFR Calc Performed By: #### L 101.9900, L100.0500, L500.4050 #### [facility] [address] [place], [address] GAP 8 Normal 5-15 [facility] Comment on above: Order Comment: 107.1 Performed By: #### L 101.9900, L100.0500, L500.4050 #### [facility] [address] [place], [address] GFR/1.73 sq M.predicted among non-blacks MDRD (S/P/Bld) [Vol rate/Area] 75 mL/min/{1.73_m2} Normal >60 [facility] Comment on above: Order Comment: 107.1 Result Comment: Non- GFR Calc Performed By: #### L 101.9900, L100.0500, L500.4050 #### [facility] [address] [place], [address] Globulin (S) [Mass/Vol] 3.2 g/dL Normal 2.2-4.2 [facility] Comment on above: Order Comment: 107.1 Performed By: #### L 101.9900, L100.0500, L500.4050 #### [facility] [address] [place], [address] Glucose [Mass/Vol] 203 mg/dL High 74-106 [facility] Comment on above: Order Comment: 107.1 Result Comment: Gluc ose result greater than or equal to 200 mg/dL suggests DIABETES MELLITUS per A.D.A. criteria. Performed By: #### L 101.9900, L100.0500, L500.4050 #### [facility] [address] [place], [address] Potassium [Moles/Vol] 4.2 mmol/L Normal 3.5-5.[address] [facility] Comment on above: Order Comment: 107.1 Performed By: #### L 101.9900, L100.0500, L500.4050 #### [facility] [address] [place], [address] Sodium [Moles/Vol] 137 mmol/L Normal 136-145 [facility] Comment on above: Order Comment: 107.1 Performed By: #### L 101.9900, L100.0500, L500.4050 #### [facility] [address] [place], [address] T PROT 5.1 g/dL Low 6.4-8.2 [facility] Comment on above: Order Comment: 107.1 Performed By: #### L 101.9900, L100.0500, L500.4050 #### [facility] [address] [place], [address] Urea nitrogen [Mass/Vol] 30 mg/dL High 7-18 [facility] Comment on above: Order Comment: 107.1 Performed By: #### L 101.9900, L100.0500, L500.4050 #### [facility] [address] [place], [place], [address] Erythrocyte Sed Rateon 12-17 SED RATE 24 mm/hr Normal 0-30 [facility] Comment on above: Order Comment: 107.1 Performed By: #### L 101.9900, L100.0500, L500.4050 #### [facility] [address] [place], [address] Erythrocyte distribution wid th (RBC) [Ratio]Ordered By: Mario Mak on 12-17-2024 Erythrocyte distribution width (RBC) [Entitic vol] 59.4 fL High 35.1-43.9 [facility] Erythrocyte distribution wid th ratioOrdered By: Mario Mak on 12-17-2024 Erythrocyte distribution width (RBC) [Ratio] 17.8 % High 11.6-14.6 [facility] Erythrocyte distribution wid th standard deviationOrdered By: Mario Mak on 12-17-2024 Erythrocyte distribution width (RBC) [Ratio] 59.4 fl High 35.1-43.9 [facility] Erythrocyte sedimentation ra teOrdered By: Mario Mak on 12-17-2024 ESR (Bld) [Velocity] 24 mm/h 0-30 [facility] Estimated glomerular filtrat ion rate (GFR) AmericanOrdered By: Mario Mak on 12-17-2024 Estimated GFR (MDRD) Amer 91 mL/min >60 [facility] Comment on above: GFR Calc Glomerular filtration rate ( GFR) estimationOrdered By: Mario Mak on 12-17-2024 Estimated GFR (MDRD) Non-Af Amer 75 mL/min >60 [facility] Comment on above: Non- GFR Calc GFR/1.73 sq M.predicted among non-blacks MDRD (S/P/Bld) [Vol rate/Area] 75 mL/min/{1.73_m2} >60 [facility] Comment on above: Non- GFR Calc Glucose measurementOrdered B y: Mario Mak on 12-17-2024 Glucose [Mass/Vol] 203 mg/dL High 74-106 [facility] Comment on above: Glucose result great er than or equal to 200 mg/dLsuggests DIABETES MELLITUS per A.D.A. criteria. Hematocrit Auto (Bld) [Volum e fraction]Ordered By: Mario Mak on 12-17-2024 Hematocrit (Bld) [Volume fraction] 24.9 % Low 37-47 [facility] Hemoglobin measurementOrdere d By: Mario Mak on 12-17-2024 Hemoglobin (Bld) [Mass/Vol] 7.7 g/dL Low 12.0-15.0 [facility] - Chemistry and C hemistry - challengeOrdered By: Mario Mak on 12-17-2024 AST [Catalytic activity/Vol] 26 U/L 15-37 [facility] MCV (mean corpuscular volume ) determinationOrdered By: Mario Mak on 12-17-2024 MCV (RBC) [Entitic vol] 91.5 fL 81-99 [facility] Mean corpuscular hemoglobin (MCH) determinationOrdered By: Mario Mak on 12-17-2024 MCH (RBC) [Entitic mass] 28.3 pg 27.0-32.0 [facility] Mean corpuscular hemoglobin concentration (MCHC) determinationOrdered By: Mario Mak on 12-17-2024 MCHC (RBC) [Mass/Vol] 30.9 g/dL Low 32-[address] [facility] Mean platelet volume determi nationOrdered By: Mario Mak on 12-17-2024 Platelet mean volume (Bld) [Entitic vol] 8.7 fL 6.2-12.0 [facility] Platelet countOrdered By: Moreno on 12-17-2024 Platelets (Bld) [#/Vol] 391 10*3/uL 150-450 [facility] Potassium measurementOrdered By: Mario Mak on 12-17-2024 Potassium [Moles/Vol] 4.2 mmol/L 3.5-5.[address] [facility] RBC Auto (Bld) [#/Vol]Ordere d By: Mario Mak on 02-03-2025 RBC (Bld) [#/Vol] 2.72 10*6/uL Low 4.2-5.[address] [facility] Serum anion gap measurementO rdered By: Mario Mak on 12-17-2024 Anion gap [Moles/Vol] 8 mmol/L 5-[address] [facility] Serum globulin measurementOr dered By: Mario Mak on 12-17-2024 Globulin (S) [Mass/Vol] 3.2 g/dL 2.2-4.2 [facility] Serum or plasma alanine melara otransferase (ALT) measurementOrdered By: Mario Mak on 12-17-2024 ALT [Catalytic activity/Vol] 9 U/L Low 13-56 [facility] Serum or plasma albumin roma urement (mass/volume)Ordered By: Mario Mak on 12-17-2024 Albumin [Mass/Vol] 1.9 g/dL Low 3.2-5.0 [facility] Serum or plasma alkaline krystal sphatase measurementOrdered By: Mario Mak on 12-17-2024 ALP [Catalytic activity/Vol] 96 U/L 45-117 [facility] Serum or plasma calcium roma urement (mass/volume)Ordered By: Mario Mak on 12-17-2024 Calcium [Mass/Vol] 8.4 mg/dL Low 8.5-10.1 [facility] Serum or plasma creatinine m easurement (mass/volume)Ordered By: Mario Mak on 12-17-2024 Creatinine [Mass/Vol] 0.77 mg/dL 0.55-1.[address] [facility] Comment on above: The validity of the calculated GFR & GFRAA in patients over 70 years has not been determined. Clinical correlation is essential. Serum or plasma urea nitroge n measurement (mass/volume)Ordered By: Mario Mak on 12-17-2024 Urea nitrogen [Mass/Vol] 30 mg/dL High 7-18 [facility] Sodium levelOrdered By: Mario Mak on 12-17-2024 Sodium [Moles/Vol] 137 mmol/L 136-145 [facility] Total proteinOrdered By: Shwetha Mak on 12-17-2024 Protein [Mass/Vol] 5.1 g/dL Low 6.4-8.2 [facility] White blood cell (WBC) count Ordered By: Mario Mak on 12-17-2024 WBC (Bld) [#/Vol] 7.6 10*3/uL 4.4-11.0 [facility] ANES POSTPROC EVALon 025 ANES POSTPROC EVAL Normal [facility] ANES PRE-OPon 12-12-2024 ANES PRE-OP Normal [facility] BRIEF OP NOTon 12-12-2024 BRIEF OP NOT Normal [facility] Basic metabolic 2000 panelon 12-12-2024 Anion gap [Moles/Vol] 9 mmol/L Normal 8-15 [facility] Comment on above: Order Comment: Speci men Type: BLOOD SPECIMENOrdering Facility: [facility] Address: [address] [place] [address] Performed By: #### 2 4321-2 ####[facility] LABORATORYCLIA [id number] [place] [address] [place] Calcium [Mass/Vol] 8.9 mg/dL Normal 8.5-10.2 [facility] Comment on above: Order Comment: Speci men Type: BLOOD SPECIMENOrdering Facility: [facility] Address: [address] [place] [address] Performed By: #### 2 4321-2 ####[facility] LABORATORYCLIA [id number] [place] [address] [place] Chloride [Moles/Vol] 104 mmol/L Normal 98-107 [facility] Comment on above: Order Comment: Speci men Type: BLOOD SPECIMENOrdering Facility: [facility] Address: [address] [place] [address] Performed By: #### 2 4321-2 ####VILLARRE[facility] LABORATORYCLIA [id number] [place] [address] [place] CO2 [Moles/Vol] 24 mmol/L Normal 22-30 [facility] Comment on above: Order Comment: Speci men Type: BLOOD SPECIMENOrdering Facility: [facility] Address: [address] [place] [address] Performed By: #### 2 4321-2 ####[facility] LABORATORYCLIA [id number] [address] [place] Creatinine [Mass/Vol] 0.74 mg/dL Normal 0.58-0.96 [facility] Comment on above: Order Comment: Fan meade Type: BLOOD SPECIMENOrdering Facility: [facility] Address: [address] [place] [address] Performed By: #### 2 4321-2 ####[facility] LABORATORYCLIA [id number] [address] Creatinine and Glomerular filtration rate.predicted panel (S/P/Bld) 78 mL/min/1.73m??? Normal >=60 [facility] Comment on above: Order Comment: Fan meade Type: BLOOD SPECIMENOrdering Facility: [facility] Address: [address] [place] [address] Result Comment: Hilda mated Glomerular Filtration Rate [...] Performed By: #### 2 4321-2 ####[facility]AL LABORATORYCLIA [id number] [address] STATES [facility] Glucose [Mass/Vol] 139 mg/dL High 74-99 [facility] Comment on above: Order Comment: Fan meade Type: BLOOD SPECIMENOrdering Facility: [facility] Address: [address] [place] [address] Result Comment: The [place] (ADA) provides guidance for cutoff [...] Standards of Medical Care in Diabetes 2016, [place]. Diabetes Care. 2016.39(Suppl 1). Performed By: #### 2 4321-2 ####VILLARREAL LABORATORYCLIA [id number] [address] [place] Potassium [Moles/Vol] 3.8 mmol/L Normal 3.7-5.1 [facility] [place] Comment on above: Order Comment: Speci men Type: BLOOD SPECIMENOrdering Facility: [facility] Address: [address] [place] [address] Performed By: #### 2 4321-2 ####VILLARREAL LABORATORYCLIA [id number] [address] [place] Sodium [Moles/Vol] 137 mmol/L Normal 136-144 [facility] Comment on above: Order Comment: Speci men Type: BLOOD SPECIMENOrdering Facility: [facility] Address: [address] [place] [address] Performed By: #### 2 4321-2 ####VILLARREAL LABORATORYCLIA [id number] [place] [address] [place] Urea nitrogen [Mass/Vol] 24 mg/dL High 7-21 [facility] Comment on above: Order Comment: Katei men Type: BLOOD SPECIMENOrdering Facility: [facility] Address: [address] [place] [address] Performed By: #### 2 4321-2 ####[facility] LABORATORYCLIA [id number] [address] [place] CASE MANAGEMon 12-12-2024 CASE MANAGEM Normal [facility] CASE MANAGEM Normal [facility] CBC W Auto Differential pane l (Bld)on 12-12-2024 Basophils (Bld) [#/Vol] 0.03 10*3/uL Normal <0.11 [facility] Comment on above: Order Comment: Speci men Type: BLOOD SPECIMENOrdering Facility: [facility] Address: [address] [place] [address] Performed By: #### 5 7021-8 ####[facility] LABORATORYCLIA [id number] [place] [address] [place] Basophils/100 WBC (Bld) 0.3 % Normal [facility] Comment on above: Order Comment: Speci men Type: BLOOD SPECIMENOrdering Facility: [facility] Address: [address] [place] [address] Performed By: #### 5 7021-8 ####VILLARREAL LABORATORYCLIA [id number] [place] [address] [place] [facility] [place] Differential cell count method Nom (Bld) Auto Normal [facility] Comment on above: Order Comment: Speci men Type: BLOOD SPECIMENOrdering Facility: [facility] Address: [address] [place] [address] Performed By: #### 5 7021-8 ####VILLARREAL LABORATORYCLIA [id number] [place] [address] [place] Eosinophils (Bld) [#/Vol] 0.15 10*3/uL Normal <0.46 [facility] Comment on above: Order Comment: Speci men Type: BLOOD SPECIMENOrdering Facility: [facility] Address: [address] [place] [address] Performed By: #### 5 7021-8 ####VILLARREAL LABORATORYCLIA [id number] [address] Eosinophils/100 WBC (Bld) 1.7 % Normal [facility] Comment on above: Order Comment: Speci men Type: BLOOD SPECIMENOrdering Facility: [facility] Address: [address] [place] [address] Performed By: #### 5 7021-8 ####VILLARREAL LABORATORYCLIA [id number] [address] [place] Erythrocyte distribution width (RBC) [Ratio] 16.7 % High 11.5-15.0 [facility] Comment on above: Order Comment: Speci men Type: BLOOD SPECIMENOrdering Facility: [facility] Address: [address] [place] [address] Performed By: #### 5 7021-8 ####VILLARREAL LABORATORYCLIA [id number] [address] [place] Hematocrit (Bld) [Volume fraction] 24.4 % Low 36.0-46.0 [facility] Comment on above: Order Comment: Speci men Type: BLOOD SPECIMENOrdering Facility: [facility] Address: [address] [place] [address] Performed By: #### 5 7021-8 ####VILLARREAL LABORATORYCLIA [id number] [address] [place] Hemoglobin (Bld) [Mass/Vol] 7.8 g/dL Low 11.5-15.5 [facility] Comment on above: Order Comment: Speci men Type: BLOOD SPECIMENOrdering Facility: [facility] Address: [address] [place] [address] Performed By: #### 5 7021-8 ####VILLARREAL LABORATORYCLIA [id number] [address] [place] Immature granulocytes (Bld) [#/Vol] 0.10 10*3/uL High <0.10 [facility] Comment on above: Order Comment: Speci men Type: BLOOD SPECIMENOrdering Facility: [facility] Address: [address] [place] [address] Performed By: #### 5 7021-8 ####VILLARREAL LABORATORYCLIA [id number] [address] [place] Immature granulocytes/100 WBC (Bld) 1.2 % Normal [facility] Comment on above: Order Comment: Speci men Type: BLOOD SPECIMENOrdering Facility: [facility] Address: [address] [place] [address] Performed By: #### 5 7021-8 ####VILLARREAL LABORATORYCLIA [id number] [place] [address] [place] Lymphocytes (Bld) [#/Vol] 1.19 10*3/uL Normal 1.00-4.00 [facility] Comment on above: Order Comment: Speci men Type: BLOOD SPECIMENOrdering Facility: [facility] Address: [address] [place] [address] Performed By: #### 5 7021-8 ####VILLARREAL LABORATORYCLIA [id number] [address] [place] [facility] Lymphocytes/100 WBC (Bld) 13.7 % Normal [facility] Comment on above: Order Comment: Speci men Type: BLOOD SPECIMENOrdering Facility: [facility] Address: [address] [place] [address] Performed By: #### 5 7021-8 ####VILLARREAL LABORATORYCLIA [id number] [place] [address] [place] MCH (RBC) [Entitic mass] 28.1 pg Normal 26.0-34.0 [facility] Comment on above: Order Comment: Speci men Type: BLOOD SPECIMENOrdering Facility: [facility] Address: [address] [place] [address] Performed By: #### 5 7021-8 ####VILLARREAL LABORATORYCLIA [id number] [address] [place] MCHC (RBC) [Mass/Vol] 32.0 g/dL Normal 30.5-36.0 [facility] [place] Comment on above: Order Comment: Speci men Type: BLOOD SPECIMENOrdering Facility: [facility] Address: [address] [place] [address] Performed By: #### 5 7021-8 ####VILLARREAL LABORATORYCLIA [id number] [address] MCV (RBC) [Entitic vol] 87.8 fL Normal 80.0-100.0 [facility] Comment on above: Order Comment: Speci men Type: BLOOD SPECIMENOrdering Facility: [facility] Address: [address] [place] [address] Performed By: #### 5 7021-8 ####VILLARREAL LABORATORYCLIA [id number] [address] [place] Monocytes (Bld) [#/Vol] 0.66 10*3/uL Normal <0.87 [facility] Comment on above: Order Comment: Speci men Type: BLOOD SPECIMENOrdering Facility: [facility] Address: [address] [place] [address] Performed By: #### 5 7021-8 ####VILLARREAL LABORATORYCLIA [id number] [place] [address] [place] Monocytes/100 WBC (Bld) 7.6 % Normal [facility] Comment on above: Order Comment: Speci men Type: BLOOD SPECIMENOrdering Facility: [facility] Address: [address] [place] [address] Performed By: #### 5 7021-8 ####VILLARREAL LABORATORYCLIA [id number] [place] [address] [place] Neutrophils (Bld) [#/Vol] 6.54 10*3/uL Normal 1.45-7.50 [facility] Comment on above: Order Comment: Speci men Type: BLOOD SPECIMENOrdering Facility: [facility] Address: [address] [place] [address] Performed By: #### 5 7021-8 ####VILLARREAL LABORATORYCLIA [id number] [address] [place] Neutrophils/100 WBC (Bld) 75.5 % Normal [facility] Comment on above: Order Comment: Speci men Type: BLOOD SPECIMENOrdering Facility: [facility] Address: [address] [place] [address] Performed By: #### 5 7021-8 ####VILLARREAL LABORATORYCLIA [id number] [place] [address] [place] Nucleated RBC (Bld) [#/Vol] 10*3/uL Normal <0.01 [facility] Comment on above: Order Comment: Speci men Type: BLOOD SPECIMENOrdering Facility: [facility] Address: [address] [place] [address] Performed By: #### 5 7021-8 ####VILLARREAL LABORATORYCLIA [id number] [place] [address] [place] Nucleated RBC/100 WBC (Bld) [Ratio] 0.0 /100 WBC Normal [facility] Comment on above: Order Comment: Speci men Type: BLOOD SPECIMENOrdering Facility: [facility] Address: [address] [place] [address] Performed By: #### 5 7021-8 ####VILLARREAL LABORATORYCLIA [id number] [address] [place] Platelet mean volume (Bld) [Entitic vol] 8.0 fL Low 9.0-12.7 [facility] Comment on above: Order Comment: Speci men Type: BLOOD SPECIMENOrdering Facility: [facility] Address: [address] [place] [address] Performed By: #### 5 7021-8 ####VILLARREAL LABORATORYCLIA [id number] [place] [address] [place] [facility] [place] Platelets (Bld) [#/Vol] 571 10*3/uL High 150-400 [facility] Comment on above: Order Comment: Speci men Type: BLOOD SPECIMENOrdering Facility: [facility] Address: [address] [place] [address] Performed By: #### 5 7021-8 ####VILLARREAL LABORATORYCLIA [id number] [address] RBC (Bld) [#/Vol] 2.78 10*6/uL Low 3.90-5.20 [facility] Comment on above: Order Comment: Speci men Type: BLOOD SPECIMENOrdering Facility: [facility] Address: [address] [place] [address] Performed By: #### 5 7021-8 ####VILLARREAL LABORATORYCLIA [id number] [address] WBC (Bld) [#/Vol] 8.67 10*3/uL Normal 3.70-11.00 [facility] Comment on above: Order Comment: Speci men Type: BLOOD SPECIMENOrdering Facility: [facility] Address: [address] [place] [address] Performed By: #### 5 7021-8 ####VILLARREAL LABORATORYCLIA [id number] [address] [place] CNDSon 12-12-2024 CNDS Normal [facility] CONSULT PROGon 12-12-2024 CONSULT PROG Normal [facility] CONSULT PROG Normal [facility] CONSULT PROG Normal [facility] OPERATIVE NOon 12-12-2024 OPERATIVE NO Normal [facility] Basic metabolic 2000 panelon 12-11-2024 Anion gap [Moles/Vol] 11 mmol/L Normal 8-15 [facility] [place] Comment on above: Order Comment: Speci men Type: BLOOD SPECIMENOrdering Facility: [facility] Address: [address] [place] [address] Performed By: #### 2 4321-2 ####VILLARREAL LABORATORYCLIA [id number] [place] [address] [place] Calcium [Mass/Vol] 9.1 mg/dL Normal 8.5-10.2 [facility] Comment on above: Order Comment: Speci men Type: BLOOD SPECIMENOrdering Facility: [facility] Address: [address] [place] [address] Performed By: #### 2 4321-2 ####VILLARREAL LABORATORYCLIA [id number] [place] [address] [place] Chloride [Moles/Vol] 102 mmol/L Normal 98-107 [facility] Comment on above: Order Comment: Speci men Type: BLOOD SPECIMENOrdering Facility: [facility] Address: [facility] [place] [address] Performed By: #### 2 4321-2 ####VILLARREAL LABORATORYCLIA [id number] [place] [address] [place] CO2 [Moles/Vol] 25 mmol/L Normal 22-30 [facility] Comment on above: Order Comment: Speci men Type: BLOOD SPECIMENOrdering Facility: [facility] Address: [facility] [place] [address] Performed By: #### 2 4321-2 ####VILLARREAL LABORATORYCLIA [id number] [place] [address] [place] Creatinine [Mass/Vol] 0.80 mg/dL Normal 0.58-0.96 [facility] [place] Comment on above: Order Comment: Speci men Type: BLOOD SPECIMENOrdering Facility: [facility] Address: [address] [place] [address] [place] [address] Performed By: #### 2 4321-2 ####VILLARREAL LABORATORYCLIA [id number] [place] [address] [place] Creatinine and Glomerular filtration rate.predicted panel (S/P/Bld) 71 mL/min/1.73m??? Normal >=60 [facility] Comment on above: Order Comment: Fan meade Type: BLOOD SPECIMENOrdering Facility: [facility] Address: [address] [place] [id number] Result Comment: Hilda mated Glomerular Filtration Rate [...] Performed By: #### 2 4321-2 ####VILLARREAL LABORATORYCLIA [id number] [place] [address] [place] Glucose [Mass/Vol] 203 mg/dL High 74-99 [facility] Comment on above: Order Comment: Fan meade Type: BLOOD SPECIMENOrdering Facility: [facility] Address: [address] [place] [address] Result Comment: The [place] [employer] (ADA) provides guidance for cutoff [...] Standards of Medical Care in Diabetes 2016, [place] [employer]. Diabetes Care. 2016.39(Suppl 1). Performed By: #### 2 4321-2 ####VILLARREAL LABORATORYCLIA [id number] [place] [address] [place] Potassium [Moles/Vol] 3.8 mmol/L Normal 3.7-5.1 [facility] [place] Comment on above: Order Comment: Fan meade Type: BLOOD SPECIMENOrdering Facility: [facility] Address: [address] [place] [address] Performed By: #### 2 4321-2 ####VILLARREAL LABORATORYCLIA [id number] [address] [place] [facility] Sodium [Moles/Vol] 138 mmol/L Normal 136-144 [facility] Comment on above: Order Comment: Speci men Type: BLOOD SPECIMENOrdering Facility: [facility] Address: [address] [place] [address] Performed By: #### 2 4321-2 ####VILLARREAL LABORATORYCLIA [id number] [place] [address] [place] Urea nitrogen [Mass/Vol] 33 mg/dL High 7-21 [facility] Comment on above: Order Comment: Speci men Type: BLOOD SPECIMENOrdering Facility: [facility] Address: [address] [place] [address] Performed By: #### 2 4321-2 ####VILLARREAL LABORATORYCLIA [id number] [address] OF [facility] CASE MANAGEMon 12-11-2024 CASE MANAGEM Normal [facility] CBC W Auto Differential pane l (Bld)on 12-11-2024 Basophils (Bld) [#/Vol] 10*3/uL Normal <0.11 [facility] Comment on above: Order Comment: Speci men Type: BLOOD SPECIMENOrdering Facility: [facility] Address: [address] [place] [address] Performed By: #### 5 7021-8 ####VILLARREAL LABORATORYCLIA [id number] [address] [place] Basophils/100 WBC (Bld) 0.2 % Normal [facility] Comment on above: Order Comment: Speci men Type: BLOOD SPECIMENOrdering Facility: [facility] Address: [address] [place] [address] Performed By: #### 5 7021-8 ####VILLARREAL LABORATORYCLIA [id number] [address] [place] [facility] Differential cell count method Nom (Bld) Auto Normal [facility] Comment on above: Order Comment: Speci men Type: BLOOD SPECIMENOrdering Facility: [facility] Address: [address] [place] [address] Performed By: #### 5 7021-8 ####VILLARREAL LABORATORYCLIA [id number] [place] [address] [place] Eosinophils (Bld) [#/Vol] 0.11 10*3/uL Normal <0.46 [facility] Comment on above: Order Comment: Speci men Type: BLOOD SPECIMENOrdering Facility: [facility] Address: [address] [place] [address] Performed By: #### 5 7021-8 ####VILLARREAL LABORATORYCLIA [id number] [address] [place] Eosinophils/100 WBC (Bld) 1.1 % Normal [facility] Comment on above: Order Comment: Speci men Type: BLOOD SPECIMENOrdering Facility: [facility] Address: [address] [place] [address] Performed By: #### 5 7021-8 ####VILLARREAL LABORATORYCLIA [id number] [address] [place] Erythrocyte distribution width (RBC) [Ratio] 16.8 % High 11.5-15.0 [facility] Comment on above: Order Comment: Speci men Type: BLOOD SPECIMENOrdering Facility: [facility] Address: [address] [place] [address] Performed By: #### 5 7021-8 ####VILLARREAL LABORATORYCLIA [id number] [address] [place] Hematocrit (Bld) [Volume fraction] 25.2 % Low 36.0-46.0 [facility] Comment on above: Order Comment: Speci men Type: BLOOD SPECIMENOrdering Facility: [facility] Address: [address] [place] [address] Performed By: #### 5 7021-8 ####VILLARREAL LABORATORYCLIA [id number] [address] [place] Hemoglobin (Bld) [Mass/Vol] 8.4 g/dL Low 11.5-15.5 [facility] Comment on above: Order Comment: Speci men Type: BLOOD SPECIMENOrdering Facility: [facility] Address: [address] [place] [address] Performed By: #### 5 7021-8 ####VILLARREAL LABORATORYCLIA [id number] [address] [place] Immature granulocytes (Bld) [#/Vol] 0.16 10*3/uL High <0.10 [facility] Comment on above: Order Comment: Speci men Type: BLOOD SPECIMENOrdering Facility: [facility] Address: [address] [place] [address] Performed By: #### 5 7021-8 ####VILLARREAL LABORATORYCLIA [id number] [address] Immature granulocytes/100 WBC (Bld) 1.5 % Normal [facility] Comment on above: Order Comment: Speci men Type: BLOOD SPECIMENOrdering Facility: [facility] Address: [address] [place] [address] Performed By: #### 5 7021-8 ####VILLARREAL LABORATORYCLIA [id number] [place] [address] [place] Lymphocytes (Bld) [#/Vol] 1.13 10*3/uL Normal 1.00-4.00 [facility] Comment on above: Order Comment: Speci men Type: BLOOD SPECIMENOrdering Facility: [facility] Address: [address] [place] [address] Performed By: #### 5 7021-8 ####VILLARREAL LABORATORYCLIA [id number] [address] [place] Lymphocytes/100 WBC (Bld) 10.9 % Normal [facility] Comment on above: Order Comment: Speci men Type: BLOOD SPECIMENOrdering Facility: [facility] Address: [address] [place] [address] Performed By: #### 5 7021-8 ####VILLARREAL LABORATORYCLIA [id number] [place] [address] [place] MCH (RBC) [Entitic mass] 28.7 pg Normal 26.0-34.0 [facility] Comment on above: Order Comment: Speci men Type: BLOOD SPECIMENOrdering Facility: [facility] Address: [address] [place] [address] Performed By: #### 5 7021-8 ####VILLARREAL LABORATORYCLIA [id number] [address] [place] [facility] MCHC (RBC) [Mass/Vol] 33.3 g/dL Normal 30.5-36.0 [facility] [place] Comment on above: Order Comment: Speci men Type: BLOOD SPECIMENOrdering Facility: [facility] Address: [address] [place] [address] Performed By: #### 5 7021-8 ####VILLARREAL LABORATORYCLIA [id number] [address] MCV (RBC) [Entitic vol] 86.0 fL Normal 80.0-100.0 [facility] Comment on above: Order Comment: Speci men Type: BLOOD SPECIMENOrdering Facility: [facility] Address: [address] [place] [address] Performed By: #### 5 7021-8 ####VILLARREAL LABORATORYCLIA [id number] [address] [place] Monocytes (Bld) [#/Vol] 0.64 10*3/uL Normal <0.87 [facility] Comment on above: Order Comment: Speci men Type: BLOOD SPECIMENOrdering Facility: [facility] Address: [address] [place] [address] Performed By: #### 5 7021-8 ####VILLARREAL LABORATORYCLIA [id number] [address] Monocytes/100 WBC (Bld) 6.2 % Normal [facility] Comment on above: Order Comment: Speci men Type: BLOOD SPECIMENOrdering Facility: [facility] Address: [address] [place] [address] Performed By: #### 5 7021-8 ####VILLARREAL LABORATORYCLIA [id number] [address] [place] Neutrophils (Bld) [#/Vol] 8.31 10*3/uL High 1.45-7.50 [facility] Comment on above: Order Comment: Speci men Type: BLOOD SPECIMENOrdering Facility: [facility] Address: [facility] [place] [address] Performed By: #### 5 7021-8 ####VILLARREAL LABORATORYCLIA [id number] [address] [place] Neutrophils/100 WBC (Bld) 80.1 % Normal [facility] Comment on above: Order Comment: Speci men Type: BLOOD SPECIMENOrdering Facility: [facility] Address: [address] [place] [address] Performed By: #### 5 7021-8 ####VILLARREAL LABORATORYCLIA [id number] [place] [address] [place] Nucleated RBC (Bld) [#/Vol] 10*3/uL Normal <0.01 [facility] Comment on above: Order Comment: Speci men Type: BLOOD SPECIMENOrdering Facility: [facility] Address: [address] [place] [address] Performed By: #### 5 7021-8 ####VILLARREAL LABORATORYCLIA [id number] [address] [place] Nucleated RBC/100 WBC (Bld) [Ratio] 0.0 /100 WBC Normal [facility] Comment on above: Order Comment: Speci men Type: BLOOD SPECIMENOrdering Facility: [facility] Address: [address] [place] [address] Performed By: #### 5 7021-8 ####VILLARREAL LABORATORYCLIA [id number] [place] [address] [place] Platelet mean volume (Bld) [Entitic vol] 7.9 fL Low 9.0-12.7 [facility] Comment on above: Order Comment: Speci men Type: BLOOD SPECIMENOrdering Facility: [facility] Address: [address] [place] [address] Performed By: #### 5 7021-8 ####VILLARREAL LABORATORYCLIA [id number] [place] [address] [place] Platelets (Bld) [#/Vol] 600 10*3/uL High 150-400 [facility] Comment on above: Order Comment: Speci men Type: BLOOD SPECIMENOrdering Facility: [facility] Address: [address] [place] [address] Performed By: #### 5 7021-8 ####MAR[facility] LABORATORYCLIA [id number] [place] [address] [place] RBC (Bld) [#/Vol] 2.93 10*6/uL Low 3.90-5.20 [facility] Comment on above: Order Comment: Speci men Type: BLOOD SPECIMENOrdering Facility: [facility] Address: [address] [place] [address] Performed By: #### 5 7021-8 ####MAR[facility] LABORATORYCLIA [id number] [address] WBC (Bld) [#/Vol] 10.37 10*3/uL Normal 3.70-11.00 [facility] Comment on above: Order Comment: Speci men Type: BLOOD SPECIMENOrdering Facility: [facility] Address: [address] [place], [place] [address] Performed By: #### 5 7021-8 ####MARION LABORATORYCLIA [id number] [address] CONSULT PROGon 12-11-2024 CONSULT PROG Normal [facility] CONSULT PROG Normal [facility] CONSULT PROG Normal [facility] CONSULT PROG Normal [facility] CONSULT PROG Normal [facility] NUTRITIONon 12-11-2024 NUTRITION Normal [facility] ANES POSTPROC EVALon 025 ANES POSTPROC EVAL Normal [facility] ANES PRE-OPon 12-10-2024 ANES PRE-OP [facility] BRIEF OP NOTon 12-10-2024 BRIEF OP NOT Normal [facility] Basic metabolic 2000 panelon 12-10-2024 Anion gap [Moles/Vol] 10 mmol/L Normal 8-15 [facility] [place] Comment on above: Order Comment: Speci men Type: BLOOD SPECIMENOrdering Facility: [facility] Address: [address] [place] [address] Performed By: #### 2 4321-2 ####VILLARREAL LABORATORYCLIA [id number] [place] [address] [place] Calcium [Mass/Vol] 8.9 mg/dL Normal 8.5-10.2 [facility] Comment on above: Order Comment: Speci men Type: BLOOD SPECIMENOrdering Facility: [facility] Address: [address] [place] [address] Performed By: #### 2 4321-2 ####VILLARREAL LABORATORYCLIA [id number] [place] [address] [place] Chloride [Moles/Vol] 102 mmol/L Normal 98-107 [facility] Comment on above: Order Comment: Speci men Type: BLOOD SPECIMENOrdering Facility: [facility] Address: [address] [place] [address] Performed By: #### 2 4321-2 ####VILLARREAL LABORATORYCLIA [id number] [place] [address] [place] CO2 [Moles/Vol] 26 mmol/L Normal 22-30 [facility] Comment on above: Order Comment: Speci men Type: BLOOD SPECIMENOrdering Facility: [facility] Address: [address] [place] [address] Performed By: #### 2 4321-2 ####VILLARREAL LABORATORYCLIA [id number] [address] [place] Creatinine [Mass/Vol] 0.68 mg/dL Normal 0.58-0.96 [facility] [place] Comment on above: Order Comment: Speci men Type: BLOOD SPECIMENOrdering Facility: [facility] Address: [address] [place] [address] Performed By: #### 2 4321-2 ####VILLARREAL LABORATORYCLIA [id number] [address] Creatinine and Glomerular filtration rate.predicted panel (S/P/Bld) 84 mL/min/1.73m??? Normal >=60 [facility] Comment on above: Order Comment: Speci men Type: BLOOD SPECIMENOrdering Facility: [facility] Address: [address] [place] [address] Result Comment: Hilda mated Glomerular Filtration Rate [...] actual GFR. Performed By: #### 2 4321-2 ####MARION LABORATORYCLIA [id number] [place] [id number] [place] Glucose [Mass/Vol] 79 mg/dL Normal 74-99 [facility] Comment on above: Order Comment: Fan men Type: BLOOD SPECIMENOrdering Facility: [facility] Address: [address] [place] [address] Result Comment: The [place] Diabetes Association (ADA) provides guidance for cutoff [...] Standards of Medical Care in Diabetes 2016, [place] [employer]. Diabetes Care. 2016.39(Suppl 1). Performed By: #### 2 4321-2 ####MARION LABORATORYCLIA [id number] [place] [id number] [place] Potassium [Moles/Vol] 4.1 mmol/L Normal 3.7-5.1 [facility] [place] Comment on above: Order Comment: Fan men Type: BLOOD SPECIMENOrdering Facility: [facility] Address: [address] [place] [address] Performed By: #### 2 4321-2 ####VILLARREAL LABORATORYCLIA [id number] [place] [address] [place] Sodium [Moles/Vol] 138 mmol/L Normal 136-144 [facility] Comment on above: Order Comment: Speci men Type: BLOOD SPECIMENOrdering Facility: [facility] Address: [address] [place] [address] Performed By: #### 2 4321-2 ####VILLARREAL LABORATORYCLIA [id number] [place] [address] [place] Urea nitrogen [Mass/Vol] 45 mg/dL High 7-21 [facility] Comment on above: Order Comment: Speci men Type: BLOOD SPECIMENOrdering Facility: [facility] Address: [address] [place] [address] Performed By: #### 2 4321-2 ####VILLARREAL LABORATORYCLIA [id number] [address] [place] CASE MANAGEMon 12-10-2024 CASE MANAGEM [facility] CBC W Auto Differential pane l (Bld)on 12-10-2024 Basophils (Bld) [#/Vol] 10*3/uL Normal <0.11 [facility] Comment on above: Order Comment: Speci men Type: BLOOD SPECIMENOrdering Facility: [facility] Address: [address] [place] [address] Performed By: #### 5 7021-8 ####VILLARREAL LABORATORYCLIA [id number] [place] [address] [place] Basophils/100 WBC (Bld) 0.2 % Normal [facility] Comment on above: Order Comment: Speci men Type: BLOOD SPECIMENOrdering Facility: [facility] Address: [address] [place] [address] Performed By: #### 5 7021-8 ####VILLARREAL LABORATORYCLIA [id number] [place] [address] [place] Differential cell count method Nom (Bld) Auto [facility] Comment on above: Order Comment: Speci men Type: BLOOD SPECIMENOrdering Facility: [facility] Address: [address] [place] [address] Performed By: #### 5 7021-8 ####VILLARREAL LABORATORYCLIA [id number] [place] [address] [place] Eosinophils (Bld) [#/Vol] 0.07 10*3/uL Normal <0.46 [facility] Comment on above: Order Comment: Speci men Type: BLOOD SPECIMENOrdering Facility: [facility] Address: [address] [place] [address] Performed By: #### 5 7021-8 ####VILLARREAL LABORATORYCLIA [id number] [place] [address] [place] Eosinophils/100 WBC (Bld) 0.6 % Normal [facility] Comment on above: Order Comment: Speci men Type: BLOOD SPECIMENOrdering Facility: [facility] Address: [address] [place] [address] Performed By: #### 5 7021-8 ####VILLARREAL LABORATORYCLIA [id number] [address] STATES [facility] Erythrocyte distribution width (RBC) [Ratio] 16.6 % High 11.5-15.0 [facility] Comment on above: Order Comment: Speci men Type: BLOOD SPECIMENOrdering Facility: [facility] Address: [address] [place] [address] Performed By: #### 5 7021-8 ####VILLARREAL LABORATORYCLIA [id number] [address] Hematocrit (Bld) [Volume fraction] 23.9 % Low 36.0-46.0 [facility] Comment on above: Order Comment: Speci men Type: BLOOD SPECIMENOrdering Facility: [facility] Address: [address] [place] [address] Performed By: #### 5 7021-8 ####VILLARREAL LABORATORYCLIA [id number] [place] [address] [place] Hemoglobin (Bld) [Mass/Vol] 7.8 g/dL Low 11.5-15.5 [facility] Comment on above: Order Comment: Speci men Type: BLOOD SPECIMENOrdering Facility: [facility] Address: [address] [place] [address] Performed By: #### 5 7021-8 ####VILLARREAL LABORATORYCLIA [id number] [address] [place] Immature granulocytes (Bld) [#/Vol] 0.16 10*3/uL High <0.10 [facility] Comment on above: Order Comment: Speci men Type: BLOOD SPECIMENOrdering Facility: [facility] Address: [address] [place] [address] Performed By: #### 5 7021-8 ####VILLARREAL LABORATORYCLIA [id number] [address] Immature granulocytes/100 WBC (Bld) 1.4 % Normal [facility] Comment on above: Order Comment: Speci men Type: BLOOD SPECIMENOrdering Facility: [facility] Address: [address] [place] [address] Performed By: #### 5 7021-8 ####VILLARREAL LABORATORYCLIA [id number] [address] Lymphocytes (Bld) [#/Vol] 1.18 10*3/uL Normal 1.00-4.00 [facility] Comment on above: Order Comment: Speci men Type: BLOOD SPECIMENOrdering Facility: [facility] Address: [address] [place] [address] Performed By: #### 5 7021-8 ####VILLARREAL LABORATORYCLIA [id number] [address] Lymphocytes/100 WBC (Bld) 10.3 % Normal [facility] Comment on above: Order Comment: Speci men Type: BLOOD SPECIMENOrdering Facility: [facility] Address: [address] [place] [address] Performed By: #### 5 7021-8 ####VILLARREAL LABORATORYCLIA [id number] [address] [place] MCH (RBC) [Entitic mass] 28.9 pg Normal 26.0-34.0 [facility] Comment on above: Order Comment: Speci men Type: BLOOD SPECIMENOrdering Facility: [facility] Address: [address] [place] [address] Performed By: #### 5 7021-8 ####VILLARREAL LABORATORYCLIA [id number] [address] [place] MCHC (RBC) [Mass/Vol] 32.6 g/dL Normal 30.5-36.0 [facility] [place] Comment on above: Order Comment: Speci men Type: BLOOD SPECIMENOrdering Facility: [facility] Address: [address] [place] [address] Performed By: #### 5 7021-8 ####VILLARREAL LABORATORYCLIA [id number] [place] [address] [place] MCV (RBC) [Entitic vol] 88.5 fL Normal 80.0-100.0 [facility] Comment on above: Order Comment: Speci men Type: BLOOD SPECIMENOrdering Facility: [facility] Address: [address] [place] [address] Performed By: #### 5 7021-8 ####VILLARREAL LABORATORYCLIA [id number] [place] [address] [place] Monocytes (Bld) [#/Vol] 0.70 10*3/uL Normal <0.87 [facility] Comment on above: Order Comment: Speci men Type: BLOOD SPECIMENOrdering Facility: [facility] Address: [address] [place] [address] Performed By: #### 5 7021-8 ####VILLARREAL LABORATORYCLIA [id number] [address] Monocytes/100 WBC (Bld) 6.1 % Normal [facility] Comment on above: Order Comment: Speci men Type: BLOOD SPECIMENOrdering Facility: [facility] Address: [address] [place] [address] Performed By: #### 5 7021-8 ####VILLARREAL LABORATORYCLIA [id number] [place] [address] [place] Neutrophils (Bld) [#/Vol] 9.32 10*3/uL High 1.45-7.50 [facility] Comment on above: Order Comment: Speci men Type: BLOOD SPECIMENOrdering Facility: [facility] Address: [address] [place] [address] Performed By: #### 5 7021-8 ####VILLARREAL LABORATORYCLIA [id number] [address] [place] Neutrophils/100 WBC (Bld) 81.4 % Normal [facility] Comment on above: Order Comment: Speci men Type: BLOOD SPECIMENOrdering Facility: [facility] Address: [address] [place] [address] Performed By: #### 5 7021-8 ####VILLARREAL LABORATORYCLIA [id number] [place] [address] [place] Nucleated RBC (Bld) [#/Vol] 10*3/uL Normal <0.01 [facility] Comment on above: Order Comment: Speci men Type: BLOOD SPECIMENOrdering Facility: [facility] Address: [address] [place] [address] Performed By: #### 5 7021-8 ####VILLARREAL LABORATORYCLIA [id number] [address] [place] Nucleated RBC/100 WBC (Bld) [Ratio] 0.0 /100 WBC Normal [facility] Comment on above: Order Comment: Speci men Type: BLOOD SPECIMENOrdering Facility: [facility] Address: [address] [place] [address] Performed By: #### 5 7021-8 ####VILLARREAL LABORATORYCLIA [id number] [place] [address] [place] Platelet mean volume (Bld) [Entitic vol] 8.1 fL Low 9.0-12.7 [facility] Comment on above: Order Comment: Speci men Type: BLOOD SPECIMENOrdering Facility: [facility] Address: [address] [place] [address] Performed By: #### 5 7021-8 ####VILLARREAL LABORATORYCLIA [id number] [place] [address] [place] Platelets (Bld) [#/Vol] 579 10*3/uL High 150-400 [facility] Comment on above: Order Comment: Speci men Type: BLOOD SPECIMENOrdering Facility: [facility] Address: [address] [place] [address] Performed By: #### 5 7021-8 ####VILLARREAL LABORATORYCLIA [id number] [place] [address] [place] [facility] [place] RBC (Bld) [#/Vol] 2.70 10*6/uL Low 3.90-5.20 [facility] Comment on above: Order Comment: Speci men Type: BLOOD SPECIMENOrdering Facility: [facility] Address: [address] [place] [address] Performed By: #### 5 7021-8 ####MAR[facility] LABORATORYCLIA [id number] [place] [id number] [place] WBC (Bld) [#/Vol] 11.45 10*3/uL High 3.70-11.00 [facility] Comment on above: Order Comment: Speci men Type: BLOOD SPECIMENOrdering Facility: [facility] Address: [address] [place] [address] Performed By: #### 5 7021-8 ####MARION LABORATORYCLIA [id number] [address] CONSULT PROGon 12-10-2024 CONSULT PROG Normal [facility] CONSULT PROG Normal [facility] CONSULT PROG Normal [facility] CONSULT PROG Normal [facility] OPERATIVE NOon 12-10-2024 OPERATIVE NO Normal [facility] SURGICAL PATHOLOGYon 025 CASE REPORT Normal [facility] Comment on above: Order Comment: Speci men Type: TISSUE SPECIMENOrdering Facility: [facility] Address: [address] [place] [address] Result Comment: Surg ical Pathology Report Case: [id number] Provider: José Miguel Morgan MD Collected: 12/10/2024 07:37 AMOrdering Location: [facility] Endoscopy Received: 12/10/2024 08:27 AMPathologist: Jesús Jeff MDSpecimens: A) - Small Bowel, Duodenum, Biopsy, sprue B) - Stomach, Biopsy, hp C) - Esophagus, Biopsy, at 30 cm r/o krystina Performed By: #### S ####[facility] LABCLIA [id number] [address] STATES OF [facility] LABCLIA [id number] [place] [address] [place] FINAL DIAGNOSIS Normal [facility] Comment on above: Order Comment: Speci men Type: TISSUE SPECIMENOrdering Facility: [facility] Address: [address] [place] [address] Result Comment: A. D uodenum, biopsy:- Focal gastric surface metaplasia associated with mild regenerative epithelial changes.- No other significant pathologic alteration.B. Stomach, biopsy:- Reactive gastropathy.- No morphologic evidence of Helicobacter pylori.C. Esophagus at 30 cm, biopsy:- Fragments of of unremarkable squamous mucosa.- No evidence of Krystina.JRG/mm/12/11/2024 Performed By: #### S ####[facility] LABCLIA [id number] [address] LABCLIA [id number] [place] [address] [place] FINAL PERFORMING LAB Normal [facility] Comment on above: Order Comment: Speci men Type: TISSUE SPECIMENOrdering Facility: [facility] Address: [address] [place] [address] Result Comment: Diag nostic interpretation performed at: [facility], [address] [place] [address] CLIA# [id number] Director: Manfred Diallo MD Performed By: #### S ####[facility] LABCLIA [id number] [address] LABCLIA [id number] [address] [place] GROSS DESCRIPTION [facility] Comment on above: Order Comment: Speci men Type: TISSUE SPECIMENOrdering Facility: [facility] Address: [address] [place] [address] Result Comment: A. S mall Bowel, Duodenum, [...] submitted in one cassette.Gross examination performed at [facility], [address] [place], [place] [address] December 10, 2024 10:50 AM Performed By: #### S ####[facility] LABCLIA [id number] [place] [address] [facility] LABCLIA [id number] [facility] [id number] [place] [address] [facility] THERAPY NTon 12-10-2024 THERAPY NT [facility] THERAPY NT [facility] Basic metabolic 2000 panelon 12-09-2024 Anion gap [Moles/Vol] 10 mmol/L Normal 8-15 [facility] [place] Comment on above: Order Comment: Speci men Type: BLOOD SPECIMENOrdering Facility: [facility] Address: [address] [place], [place] [address] Performed By: #### 2 4321-2, 84015-3, 2276-02 ####[facility] LABORATORYCLIA [id number] [place] [address] [place] Calcium [Mass/Vol] 9.3 mg/dL Normal 8.5-10.2 [facility] Comment on above: Order Comment: Speci men Type: BLOOD SPECIMENOrdering Facility: [facility] Address: [address] [place] [address] Performed By: #### 2 4321-2, 74225-6, 2275- ####MAR[facility] LABORATORYCLIA [id number] [place] [address] [place] Chloride [Moles/Vol] 100 mmol/L Normal 98-107 [facility] Comment on above: Order Comment: Speci men Type: BLOOD SPECIMENOrdering Facility: [facility] Address: [address] [place], [place] [address] Performed By: #### 2 4321-2, 07384-5, 2275-4 ####VILLARREAL LABORATORYCLIA [id number] [place] [address] [place] CO2 [Moles/Vol] 26 mmol/L Normal 22-30 [facility] Comment on above: Order Comment: Speci men Type: BLOOD SPECIMENOrdering Facility: [facility] Address: [address] [place] [address] Performed By: #### 2 4321-2, 00525-2, 2276-02 ####VILLARREAL LABORATORYCLIA [id number] [place] [id number] [place] Creatinine [Mass/Vol] 0.80 mg/dL Normal 0.58-0.96 [facility] [place] Comment on above: Order Comment: Speci men Type: BLOOD SPECIMENOrdering Facility: [facility] Address: [address] [place] [address] Performed By: #### 2 4321-2, 95843-1, 2276-02 ####VILLARREAL LABORATORYCLIA [id number] [address] Creatinine and Glomerular filtration rate.predicted panel (S/P/Bld) 71 mL/min/1.73m??? Normal >=60 [facility] Comment on above: Order Comment: Speci men Type: BLOOD SPECIMENOrdering Facility: [facility] Address: [address] [place] [address] Result Comment: Hilda mated Glomerular Filtration Rate [...] actual GFR. Performed By: #### 2 4321-2, 53578-1, 2275-4 ####VILLARREAL LABORATORYCLIA [id number] [place] [id number] [place] Glucose [Mass/Vol] 151 mg/dL High 74-99 [facility] Comment on above: Order Comment: Katei men Type: BLOOD SPECIMENOrdering Facility: [facility] Address: [address] [place] [address] Result Comment: The [place] [employer] (ADA) provides guidance for cutoff [...] Standards of Medical Care in Diabetes 2016, [place] [employer]. Diabetes Care. 2016.39(Suppl 1). Performed By: #### 2 4321-2, 37004-5, 2275-4 ####VILLARREAL LABORATORYCLIA [id number] [place] [address] [place] Potassium [Moles/Vol] 4.5 mmol/L Normal 3.7-5.1 [facility] [place] Comment on above: Order Comment: Fan meade Type: BLOOD SPECIMENOrdering Facility: [facility] Address: [address] [place] [address] Performed By: #### 2 4321-2, 91246-6, 2275-4 ####VILLARREAL LABORATORYCLIA [id number] [place] [address] [place] Sodium [Moles/Vol] 136 mmol/L Normal 136-144 [facility] Comment on above: Order Comment: Katei men Type: BLOOD SPECIMENOrdering Facility: [facility] Address: [address] [place], [place] [address] Performed By: #### 2 4321-2, 27219-0, 2275-4 ####VILLARREAL LABORATORYCLIA [id number] [place] [address] [place] Urea nitrogen [Mass/Vol] 43 mg/dL High 7-21 [facility] Comment on above: Order Comment: Speci men Type: BLOOD SPECIMENOrdering Facility: [facility] Address: [address] [place] [address] Performed By: #### 2 4321-2, 43460-2, 2276-4 ####VILLARREAL LABORATORYCLIA [id number] [place] [address] [place] CBC W Auto Differential pane l (Bld)on 12-09-2024 Basophils (Bld) [#/Vol] 10*3/uL Normal <0.11 [facility] Comment on above: Order Comment: Speci men Type: BLOOD SPECIMENOrdering Facility: [facility] Address: [address] [place] [address] Performed By: #### 5 7021-8 ####VILLARREAL LABORATORYCLIA [id number] [place] [address] [place] Basophils/100 WBC (Bld) 0.1 % Normal [facility] Comment on above: Order Comment: Speci men Type: BLOOD SPECIMENOrdering Facility: [facility] Address: [address] [place] [address] Performed By: #### 5 7021-8 ####VILLARREAL LABORATORYCLIA [id number] [place] [address] [place] Differential cell count method Nom (Bld) Auto Normal [facility] Comment on above: Order Comment: Speci men Type: BLOOD SPECIMENOrdering Facility: [facility] Address: [address] [place] [address] Performed By: #### 5 7021-8 ####VILLARREAL LABORATORYCLIA [id number] [place] [address] [place] Eosinophils (Bld) [#/Vol] 0.15 10*3/uL Normal <0.46 [facility] Comment on above: Order Comment: Speci men Type: BLOOD SPECIMENOrdering Facility: [facility] Address: [address] [place] [address] Performed By: #### 5 7021-8 ####VILLARREAL LABORATORYCLIA [id number] [place] [address] [place] [facility] [place] Eosinophils/100 WBC (Bld) 1.4 % Normal [facility] Comment on above: Order Comment: Speci men Type: BLOOD SPECIMENOrdering Facility: [facility] Address: [facility] [place] [address] Performed By: #### 5 7021-8 ####VILLARREAL LABORATORYCLIA [id number] [address] [place] Erythrocyte distribution width (RBC) [Ratio] 16.4 % High 11.5-15.0 [facility] Comment on above: Order Comment: Speci men Type: BLOOD SPECIMENOrdering Facility: [facility] Address: [address] [place] [address] Performed By: #### 5 7021-8 ####VILLARREAL LABORATORYCLIA [id number] [address] [place] Hematocrit (Bld) [Volume fraction] 24.0 % Low 36.0-46.0 [facility] Comment on above: Order Comment: Speci men Type: BLOOD SPECIMENOrdering Facility: [facility] Address: [address] [place] [address] Performed By: #### 5 7021-8 ####VILLARREAL LABORATORYCLIA [id number] [address] [place] Hemoglobin (Bld) [Mass/Vol] 7.6 g/dL Low 11.5-15.5 [facility] Comment on above: Order Comment: Speci men Type: BLOOD SPECIMENOrdering Facility: [facility] Address: [address] [place] [address] Performed By: #### 5 7021-8 ####VILLARREAL LABORATORYCLIA [id number] [address] [place] Immature granulocytes (Bld) [#/Vol] 0.23 10*3/uL High <0.10 [facility] Comment on above: Order Comment: Speci men Type: BLOOD SPECIMENOrdering Facility: [facility] Address: [address] [place] [address] Performed By: #### 5 7021-8 ####VILLARREAL LABORATORYCLIA [id number] [address] [place] Immature granulocytes/100 WBC (Bld) 2.1 % Normal [facility] Comment on above: Order Comment: Speci men Type: BLOOD SPECIMENOrdering Facility: [facility] Address: [address] [place] [address] Performed By: #### 5 7021-8 ####VILL[facility] LABORATORYCLIA [id number] [address] [place] Lymphocytes (Bld) [#/Vol] 1.43 10*3/uL Normal 1.00-4.00 [facility] Comment on above: Order Comment: Speci men Type: BLOOD SPECIMENOrdering Facility: [facility] Address: [address] [place] [address] Performed By: #### 5 7021-8 ####VILLAR[facility] LABORATORYCLIA [id number] [address] Lymphocytes/100 WBC (Bld) 13.3 % Normal [facility] Comment on above: Order Comment: Speci men Type: BLOOD SPECIMENOrdering Facility: [facility] Address: [address] [place] [address] Performed By: #### 5 7021-8 ####VILLAR[facility] LABORATORYCLIA [id number] [address] [place] MCH (RBC) [Entitic mass] 27.9 pg Normal 26.0-34.0 [facility] Comment on above: Order Comment: Speci men Type: BLOOD SPECIMENOrdering Facility: [facility] Address: [address] [place] [address] Performed By: #### 5 7021-8 ####VILLAR[facility] LABORATORYCLIA [id number] [address] MCHC (RBC) [Mass/Vol] 31.7 g/dL Normal 30.5-36.0 [facility] [place] Comment on above: Order Comment: Speci men Type: BLOOD SPECIMENOrdering Facility: [facility] Address: [address] [place] [address] Performed By: #### 5 7021-8 ####VILL[facility] LABORATORYCLIA [id number] [address] [place] MCV (RBC) [Entitic vol] 88.2 fL Normal 80.0-100.0 [facility] Comment on above: Order Comment: Speci men Type: BLOOD SPECIMENOrdering Facility: [facility] Address: [address] [place] [address] Performed By: #### 5 7021-8 ####VILL[facility] LABORATORYCLIA [id number] [address] [place] Monocytes (Bld) [#/Vol] 0.62 10*3/uL Normal <0.87 [facility] Comment on above: Order Comment: Speci men Type: BLOOD SPECIMENOrdering Facility: [facility] Address: [address] [place] [address] Performed By: #### 5 7021-8 ####V[facility] LABORATORYCLIA [id number] [address] Monocytes/100 WBC (Bld) 5.8 % Normal [facility] Comment on above: Order Comment: Speci men Type: BLOOD SPECIMENOrdering Facility: [facility] Address: [address] [place] [address] Performed By: #### 5 7021-8 ####V[facility] LABORATORYCLIA [id number] [address] [place] Neutrophils (Bld) [#/Vol] 8.31 10*3/uL High 1.45-7.50 [facility] Comment on above: Order Comment: Speci men Type: BLOOD SPECIMENOrdering Facility: [facility] Address: [address] [place] [address] Performed By: #### 5 7021-8 ####[facility] LABORATORYCLIA [id number] [address] Neutrophils/100 WBC (Bld) 77.3 % Normal [facility] Comment on above: Order Comment: Speci men Type: BLOOD SPECIMENOrdering Facility: [facility] Address: [address] [place] [address] Performed By: #### 5 7021-8 ####VILLARREAL LABORATORYCLIA [id number] [address] [place] Nucleated RBC (Bld) [#/Vol] 10*3/uL Normal <0.01 [facility] Comment on above: Order Comment: Speci men Type: BLOOD SPECIMENOrdering Facility: [facility] Address: [address] [place] [address] Performed By: #### 5 7021-8 ####VILLARREAL LABORATORYCLIA [id number] [address] [place] Nucleated RBC/100 WBC (Bld) [Ratio] 0.0 /100 WBC Normal [facility] Comment on above: Order Comment: Speci men Type: BLOOD SPECIMENOrdering Facility: [facility] Address: [address] [place] [address] Performed By: #### 5 7021-8 ####VILLARREAL LABORATORYCLIA [id number] [address] [place] Platelet mean volume (Bld) [Entitic vol] 8.3 fL Low 9.0-12.7 [facility] Comment on above: Order Comment: Speci men Type: BLOOD SPECIMENOrdering Facility: [facility] Address: [address] [place] [address] Performed By: #### 5 7021-8 ####VILLARREAL LABORATORYCLIA [id number] [address] [place] Platelets (Bld) [#/Vol] 577 10*3/uL High 150-400 [facility] Comment on above: Order Comment: Speci men Type: BLOOD SPECIMENOrdering Facility: [facility] Address: [address] [place] [address] Performed By: #### 5 7021-8 ####VILLARREAL LABORATORYCLIA [id number] [place] [address] [place] RBC (Bld) [#/Vol] 2.72 10*6/uL Low 3.90-5.20 [facility] Comment on above: Order Comment: Speci men Type: BLOOD SPECIMENOrdering Facility: [facility] Address: [address] [place] [address] Performed By: #### 5 7021-8 ####VILLARREAL LABORATORYCLIA [id number] [address] [place] WBC (Bld) [#/Vol] 10.75 10*3/uL Normal 3.70-11.00 [facility] Comment on above: Order Comment: Fan meade Type: BLOOD SPECIMENOrdering Facility: [facility] Address: [address] [place] [address] Performed By: #### 5 7021-8 ####[facility] LABORATORYCLIA [id number] [address] CELIAC SCREENon 12-09-2024 GLIAD DEAMIDATED IGA QUAL Negative Normal Negative, Test not Indicated [facility] Comment on above: Order Comment: Fan [facility] Type: BLOOD SPECIMENOrdering Facility: [facility] Address: [address] [place] [address] Result Comment: This is used as an aid in diagnosis of celiac disease. Clinical correlation is required.The following results were obtained with an [employer] QUANTA Lite Gliadin IgA JOE Gliadin. Gliadin IgA values obtained with different manufacturers' assay methods may not be used interchangeably. The magnitude of the reported IgA levels cannot be correlated to an endpoint titer. Performed By: #### L [id number] ####[facility] LABCLIA [id number] [address] [place] Gliadin peptide IgA Qn (S) 2 Units Normal <20 [facility] Comment on above: Order Comment: Fan [facility] Type: BLOOD SPECIMENOrdering Facility: [facility] Address: [address] [place] [address] Performed By: #### L [id number] ####[facility] LABCLIA [id number] [address] [place] INTERPRETATION No serological evidence of celiac disease, however, if celiac disease is clinically suspected and patient is not on gluten-free diet, histological diagnosis may be considered. HLA testing may help with risk assessment. Normal [facility] Comment on above: Order Comment: [facility] Type: BLOOD SPECIMENOrdering Facility: [facility] Address: [address] [place] [address] Performed By: #### L [id number] ####[facility] LABCLIA [id number] [place] [address] [place] TRANSGLUTAMINASE IGA ABS INTERPRETATION Negative Normal Negative [facility] Comment on above: Order Comment: Speci men Type: BLOOD SPECIMENOrdering Facility: [facility] Address: [address] [place] [address] Result Comment: The following results were obtained with [employer] Sciences[employer] Imagrye R h-tTG IgA JOE.???R h-tTG IgA values obtained with different manufacturers' assay methods may not be used interchangeably. The magnitude of the reported IgA levels cannot be corelated to an endpoint???concentration.This is used as an aid in diagnosis of celiac disease. Clinical correlation is required. Performed By: #### L [id number] ####[facility] LABCLIA [id number] [place] [address] [place] tTG IgA Qn (S) <2 Normal <4 [facility] Comment on above: Order Comment: Speci men Type: BLOOD SPECIMENOrdering Facility: [facility] Address: [address] [place] [address] Performed By: #### L [id number] ####[facility] LABCLIA [id number] [place] [address] [place] CONSULT PROGon 12-09-2024 CONSULT PROG Normal [facility] CONSULT PROG Normal [facility] CONSULT PROG Normal [facility] Ferritin SerPl-mCncon 2024 Ferritin [Mass/Vol] 1588.0 ng/mL High 14.7-205.1 [facility] [place] Comment on above: Order Comment: Speci men Type: BLOOD SPECIMENOrdering Facility: [facility] Address: [address] [place] [address] Performed By: #### 2 4321-2, 03893-7, 2276-4 ####MAR[facility] LABORATORYCLIA [id number] [place] [address] [place] Haptoglob SerPl-mCncon 12-09 Haptoglobin [Mass/Vol] 483 mg/dL High 31-238 [facility] Comment on above: Order Comment: Speci men Type: BLOOD SPECIMENOrdering Facility: [facility] Address: [address] [place] [address] Performed By: #### 4 542-7 ####[facility] LABCLIA [id number] [place] [address] [place] IgA SerPl-mCncon 12-09-2024 IgA [Mass/Vol] 166 mg/dL Normal 70-400 [facility] Comment on above: Order Comment: Speci men Type: BLOOD SPECIMENOrdering Facility: [facility] Address: [address] [place] [address] Performed By: #### 2 458-8 ####[facility] LABCLIA [id number] [place] [address] [place] Iron and Iron binding capaci ty panelon 12-09-2024 Iron [Mass/Vol] 91 ug/dL Normal 41-186 [facility] Comment on above: Order Comment: Speci men Type: BLOOD SPECIMENOrdering Facility: [facility] Address: [address] [place] [address] Performed By: #### 2 4321-2, 86703-0, 2276-4 ####MAR[facility] LABORATORYCLIA [id number] [address] [place] Iron binding capacity [Mass/Vol] 223 ug/dL Low 232-386 [facility] Comment on above: Order Comment: Speci men Type: BLOOD SPECIMENOrdering Facility: [facility] Address: [address] [place] [address] Performed By: #### 2 4321-2, 41633-8, 2276-4 ####VILLARREAL LABORATORYCLIA [id number] [place] [id number] [place] Iron/TIBC [Molar ratio] 40.8 % Normal 15.0-57.0 [facility] Comment on above: Order Comment: Speci men Type: BLOOD SPECIMENOrdering Facility: [facility] Address: [address] [place] [address] Performed By: #### 2 4321-2, 81249-4, 2276-4 ####VILLARREAL LABORATORYCLIA [id number] [place] [address] [place] CBC W Auto Differential pane l (Bld)on 12-08-2024 Basophils (Bld) [#/Vol] 0.03 10*3/uL Normal <0.11 [facility] Comment on above: Order Comment: Speci men Type: BLOOD SPECIMENOrdering Facility: [facility] Address: [address] [place] [address] Performed By: #### 5 7021-8 ####VILLARREAL LABORATORYCLIA [id number] [address] [place] Basophils/100 WBC (Bld) 0.3 % Normal [facility] Comment on above: Order Comment: Speci men Type: BLOOD SPECIMENOrdering Facility: [facility] Address: [address] [place] [address] Performed By: #### 5 7021-8 ####VILLARREAL LABORATORYCLIA [id number] [address] [place] [facility] Differential cell count method Nom (Bld) Auto Normal [facility] Comment on above: Order Comment: Speci men Type: BLOOD SPECIMENOrdering Facility: [facility] Address: [address] [place] [address] Performed By: #### 5 7021-8 ####VILLARREAL LABORATORYCLIA [id number] [place] [address] [place] Eosinophils (Bld) [#/Vol] 0.13 10*3/uL Normal <0.46 [facility] Comment on above: Order Comment: Speci men Type: BLOOD SPECIMENOrdering Facility: [facility] Address: [address] [place] [address] Performed By: #### 5 7021-8 ####VILLARREAL LABORATORYCLIA [id number] [place] [address] [place] Eosinophils/100 WBC (Bld) 1.1 % Normal [facility] Comment on above: Order Comment: Speci men Type: BLOOD SPECIMENOrdering Facility: [facility] Address: [address] [place] [address] Performed By: #### 5 7021-8 ####VILLARREAL LABORATORYCLIA [id number] [place] [address] [place] Erythrocyte distribution width (RBC) [Ratio] 16.0 % High 11.5-15.0 [facility] Comment on above: Order Comment: Speci men Type: BLOOD SPECIMENOrdering Facility: [facility] Address: [address] [place] [address] Performed By: #### 5 7021-8 ####VILLARREAL LABORATORYCLIA [id number] [place] [address] [place] Hematocrit (Bld) [Volume fraction] 24.0 % Low 36.0-46.0 [facility] Comment on above: Order Comment: Speci men Type: BLOOD SPECIMENOrdering Facility: [facility] Address: [address] [place] [address] Performed By: #### 5 7021-8 ####VILLARREAL LABORATORYCLIA [id number] [place] [address] [place] Hemoglobin (Bld) [Mass/Vol] 7.7 g/dL Low 11.5-15.5 [facility] Comment on above: Order Comment: Speci men Type: BLOOD SPECIMENOrdering Facility: [facility] Address: [address] [place] [address] Performed By: #### 5 7021-8 ####VILLARREAL LABORATORYCLIA [id number] [place] [address] [place] Immature granulocytes (Bld) [#/Vol] 0.19 10*3/uL High <0.10 [facility] Comment on above: Order Comment: Speci men Type: BLOOD SPECIMENOrdering Facility: [facility] Address: [address] [place] [address] Performed By: #### 5 7021-8 ####VILLARREAL LABORATORYCLIA [id number] [address] [place] Immature granulocytes/100 WBC (Bld) 1.6 % Normal [facility] Comment on above: Order Comment: Speci men Type: BLOOD SPECIMENOrdering Facility: [facility] Address: [address] [place] [address] Performed By: #### 5 7021-8 ####VILLARREAL LABORATORYCLIA [id number] [address] Lymphocytes (Bld) [#/Vol] 1.38 10*3/uL Normal 1.00-4.00 [facility] Comment on above: Order Comment: Speci men Type: BLOOD SPECIMENOrdering Facility: [facility] Address: [address] [place] [address] Performed By: #### 5 7021-8 ####VILLARREAL LABORATORYCLIA [id number] [address] Lymphocytes/100 WBC (Bld) 11.9 % Normal [facility] Comment on above: Order Comment: Speci men Type: BLOOD SPECIMENOrdering Facility: [facility] Address: [address] [place] [address] Performed By: #### 5 7021-8 ####VILLARRE[facility] LABORATORYCLIA [id number] [address] MCH (RBC) [Entitic mass] 28.2 pg Normal 26.0-34.0 [facility] Comment on above: Order Comment: Speci men Type: BLOOD SPECIMENOrdering Facility: [facility] Address: [address] [place] [address] Performed By: #### 5 7021-8 ####VILLAR[facility] LABORATORYCLIA [id number] [address] MCHC (RBC) [Mass/Vol] 32.1 g/dL Normal 30.5-36.0 [facility] [place] Comment on above: Order Comment: Speci men Type: BLOOD SPECIMENOrdering Facility: [facility] Address: [address] [place] [address] Performed By: #### 5 7021-8 ####VILLARREAL LABORATORYCLIA [id number] [address] MCV (RBC) [Entitic vol] 87.9 fL Normal 80.0-100.0 [facility] Comment on above: Order Comment: Speci men Type: BLOOD SPECIMENOrdering Facility: [facility] Address: [address] [place] [address] Performed By: #### 5 7021-8 ####VILLARREAL LABORATORYCLIA [id number] [place] [address] [place] Monocytes (Bld) [#/Vol] 0.77 10*3/uL Normal <0.87 [facility] Comment on above: Order Comment: Speci men Type: BLOOD SPECIMENOrdering Facility: [facility] Address: [address] [place] [address] Performed By: #### 5 7021-8 ####VILLARREAL LABORATORYCLIA [id number] [address] [place] Monocytes/100 WBC (Bld) 6.6 % Normal [facility] Comment on above: Order Comment: Speci men Type: BLOOD SPECIMENOrdering Facility: [facility] Address: [address] [place] [address] Performed By: #### 5 7021-8 ####VILLARREAL LABORATORYCLIA [id number] [place] [address] [place] Neutrophils (Bld) [#/Vol] 9.10 10*3/uL High 1.45-7.50 [facility] Comment on above: Order Comment: Speci men Type: BLOOD SPECIMENOrdering Facility: [facility] Address: [address] [place] [address] Performed By: #### 5 7021-8 ####VILLARREAL LABORATORYCLIA [id number] [place] [address] [place] Neutrophils/100 WBC (Bld) 78.5 % Normal [facility] Comment on above: Order Comment: Speci men Type: BLOOD SPECIMENOrdering Facility: [facility] Address: [address] [place] [address] Performed By: #### 5 7021-8 ####VILLARREAL LABORATORYCLIA [id number] [place] [address] [place] Nucleated RBC (Bld) [#/Vol] 10*3/uL Normal <0.01 [facility] Comment on above: Order Comment: Speci men Type: BLOOD SPECIMENOrdering Facility: [facility] Address: [address] [place] [address] Performed By: #### 5 7021-8 ####VILLARREAL LABORATORYCLIA [id number] [address] [place] Nucleated RBC/100 WBC (Bld) [Ratio] 0.0 /100 WBC Normal [facility] Comment on above: Order Comment: Speci men Type: BLOOD SPECIMENOrdering Facility: [facility] Address: [address] [place] [address] Performed By: #### 5 7021-8 ####VILLAR[facility] LABORATORYCLIA [id number] [address] Platelet mean volume (Bld) [Entitic vol] 8.4 fL Low 9.0-12.7 [facility] Comment on above: Order Comment: Speci men Type: BLOOD SPECIMENOrdering Facility: [facility] Address: [address] [place] [address] Performed By: #### 5 7021-8 ####VILLARREAL LABORATORYCLIA [id number] [address] [place] Platelets (Bld) [#/Vol] 577 10*3/uL High 150-400 [facility] Comment on above: Order Comment: Speci men Type: BLOOD SPECIMENOrdering Facility: [facility] Address: [address] [place] [address] Performed By: #### 5 7021-8 ####VILLARREAL LABORATORYCLIA [id number] [address] [place] RBC (Bld) [#/Vol] 2.73 10*6/uL Low 3.90-5.20 [facility] Comment on above: Order Comment: Speci men Type: BLOOD SPECIMENOrdering Facility: [facility] Address: [address] [place] [address] Performed By: #### 5 7021-8 ####VILLARREAL LABORATORYCLIA [id number] [place] [address] [place] WBC (Bld) [#/Vol] 11.60 10*3/uL High 3.70-11.00 [facility] Comment on above: Order Comment: Speci men Type: BLOOD SPECIMENOrdering Facility: [facility] Address: [address] [place] [address] Performed By: #### 5 7021-8 ####MAR[facility] LABORATORYCLIA [id number] [place] [id number] [facility] [place] CONSULT PROGon 12-08-2024 CONSULT PRO Normal [facility] CONSULT PROG Normal [facility] CONSULT [facility] Comprehensive metabolic 2000 panelon 12-08-2024 Albumin [Mass/Vol] 2.6 g/dL Low 3.9-4.9 [facility] Comment on above: Order Comment: Speci men Type: BLOOD SPECIMENOrdering Facility: [facility] Address: [address] [place] [address] Performed By: #### 2 4323-8, 17579-3 ####MAR[facility] LABORATORYCLIA [id number] [place] [address] [place] ALP [Catalytic activity/Vol] 106 U/L Normal 34-123 [facility] Comment on above: Order Comment: Speci men Type: BLOOD SPECIMENOrdering Facility: [facility] Address: [address] [place] [address] Performed By: #### 2 4323-8, 19613-2 ####MAR[facility] LABORATORYCLIA [id number] [place] [id number] [place] ALT [Catalytic activity/Vol] U/L Low 7-38 [facility] Comment on above: Order Comment: Speci men Type: BLOOD SPECIMENOrdering Facility: [facility] Address: [address] [place] [address] Performed By: #### 2 4323-8, 21488-9 ####VILLARREAL LABORATORYCLIA [id number] [place] [address] [place] Anion gap [Moles/Vol] 8 mmol/L Normal 8-15 [facility] [place] Comment on above: Order Comment: Speci men Type: BLOOD SPECIMENOrdering Facility: [facility] Address: [address] [place] [address] Performed By: #### 2 4323-8, ####VILLARREAL LABORATORYCLIA [id number] [place] [address] [place] AST [Catalytic activity/Vol] 20 U/L Normal 13-35 [facility] Comment on above: Order Comment: Speci men Type: BLOOD SPECIMENOrdering Facility: [facility] Address: [address] [facility] [place] [address] Performed By: #### 2 4322-8, ####VILLARREAL LABORATORYCLIA [id number] [place] [address] [place] Bilirubin [Mass/Vol] mg/dL Low 0.2-1.3 [facility] Comment on above: Order Comment: Speci men Type: BLOOD SPECIMENOrdering Facility: [facility] Address: [address] [facility] [place] [address] Performed By: #### 2 8, ####VILLARREAL LABORATORYCLIA [id number] [place] [address] [place] Calcium [Mass/Vol] 9.0 mg/dL Normal 8.5-10.2 [facility] Comment on above: Order Comment: Speci men Type: BLOOD SPECIMENOrdering Facility: [facility] Address: [address] [place] [address] Performed By: #### 2 4323-8, ####VILLARREAL LABORATORYCLIA [id number] [place] [id number] [place] Chloride [Moles/Vol] 99 mmol/L Normal 98-107 [facility] Comment on above: Order Comment: Speci men Type: BLOOD SPECIMENOrdering Facility: [facility] Address: [facility] [place] [address] Performed By: #### 2 432-8, ####VILLARREAL LABORATORYCLIA [id number] [place] [address] [place] CO2 [Moles/Vol] 27 mmol/L Normal 22-30 [facility] Comment on above: Order Comment: Speci men Type: BLOOD SPECIMENOrdering Facility: [facility] Address: [address] [place] [address] Performed By: #### 2 4323-8, ####VILLARREAL LABORATORYCLIA [id number] [place] [id number] [place] Creatinine [Mass/Vol] 0.86 mg/dL Normal 0.58-0.96 [facility] [place] Comment on above: Order Comment: Fan halina Type: BLOOD SPECIMENOrdering Facility: [facility] Address: [address] [place] [address] Performed By: #### 2 4323-8, ####VILLARREAL LABORATORYCLIA [id number] [place] [id number] [facility] Creatinine and Glomerular filtration rate.predicted panel (S/P/Bld) 65 mL/min/1.73m??? Normal >=60 [facility] Comment on above: Order Comment: Fan [place] Type: BLOOD SPECIMENOrdering Facility: [facility] Address: [address] [place] [address] Result Comment: Hilda mated Glomerular Filtration Rate [...] Performed By: #### 2 4323-8, ####VILLARREAL LABORATORYCLIA [id number] [place] [id number] [place] Glucose [Mass/Vol] 170 mg/dL High 74-99 [facility] Comment on above: Order Comment: Fan [place]ade Type: BLOOD SPECIMENOrdering Facility: [facility] Address: [address] [place] [address] Result Comment: The [place] [employer] (ADA) provides guidance for cutoff [...] Standards of Medical Care in Diabetes 2016, [place] [employer]. Diabetes Care. 2016.39(Suppl 1). Performed By: #### 2 8, ####VILLARREAL LABORATORYCLIA [id number] [place] [address] [place] Potassium [Moles/Vol] 4.5 mmol/L Normal 3.7-5.1 [facility] [place] Comment on above: Order Comment: Fan [place]ade Type: BLOOD SPECIMENOrdering Facility: [facility] Address: [address] [place], [place] [address] Performed By: #### 2 4323-06, ####VILLARREAL LABORATORYCLIA [id number] [place] [address] [place] Protein [Mass/Vol] 5.3 g/dL Low 6.3-8.0 [facility] Comment on above: Order Comment: Fan [place]ade Type: BLOOD SPECIMENOrdering Facility: [facility] Address: [address] [place] [address] Performed By: #### 2 4323-06, ####VILLARREAL LABORATORYCLIA [id number] [place] [id number] [place] Sodium [Moles/Vol] 134 mmol/L Low 136-144 [facility] Comment on above: Order Comment: Fan [place] Type: BLOOD SPECIMENOrdering Facility: [facility] Address: [address] [place] [address] Performed By: #### 2 4323-06, ####VILLARREAL LABORATORYCLIA [id number] [place] [id number] [place] Urea nitrogen [Mass/Vol] 45 mg/dL High 7-21 [facility] Comment on above: Order Comment: Fan [place] Type: BLOOD SPECIMENOrdering Facility: [facility] Address: [address] [place], [place] [address] Performed By: #### 2 4323-8, 48565-5 ####VILLARREAL LABORATORYCLIA [id number] [place] [address] [place] Magnesium SerPl-mCncon 12-08 Magnesium [Mass/Vol] 1.7 mg/dL Normal 1.7-2.3 [facility] Comment on above: Order Comment: Speci men Type: BLOOD SPECIMENOrdering Facility: [facility] Address: [address] [place] [address] Performed By: #### 2 4323-8, 89540-5 ####VILLARREAL LABORATORYCLIA [id number] [address] [place] OCCULT BLD EXAM-DIAGon 12-08 OCCULT BLD EXAM-DIAG Negative Normal [facility] Comment on above: Performed By: #### O BDX ####VILLARREAL LABORATORYCLIA [id number] [place] [address] [place] ALLIED HEALTHon 12-07-2024 ALLIED HEALTH [facility] CASE MANAGEMon 12-07-2024 CASE MANAGEM [facility] CBC W Auto Differential pane l (Bld)on 12-07-2024 Basophils (Bld) [#/Vol] 10*3/uL Normal <0.11 [facility] Comment on above: Order Comment: Speci men Type: BLOOD SPECIMENOrdering Facility: [facility] Address: [address] [place] [address] Performed By: #### 5 7021-8 ####VILLARREAL LABORATORYCLIA [id number] [address] [place] Basophils/100 WBC (Bld) 0.2 % Normal [facility] Comment on above: Order Comment: Speci men Type: BLOOD SPECIMENOrdering Facility: [facility] Address: [facility] [place] [address] Performed By: #### 5 7021-8 ####VILLARREAL LABORATORYCLIA [id number] [place] [address] [place] Differential cell count method Nom (Bld) Auto Normal [facility] Comment on above: Order Comment: Speci men Type: BLOOD SPECIMENOrdering Facility: [facility] Address: [address] [place] [address] Performed By: #### 5 7021-8 ####VILLARREAL LABORATORYCLIA [id number] [place] [address] [place] Eosinophils (Bld) [#/Vol] 0.09 10*3/uL Normal <0.46 [facility] Comment on above: Order Comment: Speci men Type: BLOOD SPECIMENOrdering Facility: [facility] Address: [address] [place] [address] Performed By: #### 5 7021-8 ####VILLARRE[facility] LABORATORYCLIA [id number] [address] Eosinophils/100 WBC (Bld) 0.8 % Normal [facility] Comment on above: Order Comment: Speci men Type: BLOOD SPECIMENOrdering Facility: [facility] Address: [address] [place] [address] Performed By: #### 5 7021-8 ####VILLARREAL LABORATORYCLIA [id number] [address] [place] Erythrocyte distribution width (RBC) [Ratio] 16.0 % High 11.5-15.0 [facility] Comment on above: Order Comment: Speci men Type: BLOOD SPECIMENOrdering Facility: [facility] Address: [address] [place] [address] Performed By: #### 5 7021-8 ####VILLARREAL LABORATORYCLIA [id number] [address] [place] Hematocrit (Bld) [Volume fraction] 25.2 % Low 36.0-46.0 [facility] Comment on above: Order Comment: Speci men Type: BLOOD SPECIMENOrdering Facility: [facility] Address: [address] [place] [address] Performed By: #### 5 7021-8 ####VILLARREAL LABORATORYCLIA [id number] [address] [place] Hemoglobin (Bld) [Mass/Vol] 8.2 g/dL Low 11.5-15.5 [facility] Comment on above: Order Comment: Speci men Type: BLOOD SPECIMENOrdering Facility: [facility] Address: [address] [place] [address] Performed By: #### 5 7021-8 ####VILLARREAL LABORATORYCLIA [id number] [address] Immature granulocytes (Bld) [#/Vol] 0.18 10*3/uL High <0.10 [facility] Comment on above: Order Comment: Speci men Type: BLOOD SPECIMENOrdering Facility: [facility] Address: [address] [place] [address] Performed By: #### 5 7021-8 ####VILLARREAL LABORATORYCLIA [id number] [address] Immature granulocytes/100 WBC (Bld) 1.6 % Normal [facility] Comment on above: Order Comment: Speci men Type: BLOOD SPECIMENOrdering Facility: [facility] Address: [address] [place] [address] Performed By: #### 5 7021-8 ####VILLARREAL LABORATORYCLIA [id number] [address] [place] Lymphocytes (Bld) [#/Vol] 0.83 10*3/uL Low 1.00-4.00 [facility] Comment on above: Order Comment: Speci men Type: BLOOD SPECIMENOrdering Facility: [facility] Address: [address] [place] [address] Performed By: #### 5 7021-8 ####VILLARREAL LABORATORYCLIA [id number] [address] Lymphocytes/100 WBC (Bld) 7.6 % Normal [facility] Comment on above: Order Comment: Speci men Type: BLOOD SPECIMENOrdering Facility: [facility] Address: [address] [place] [address] Performed By: #### 5 7021-8 ####VILLARREAL LABORATORYCLIA [id number] [address] [place] MCH (RBC) [Entitic mass] 28.5 pg Normal 26.0-34.0 [facility] Comment on above: Order Comment: Speci men Type: BLOOD SPECIMENOrdering Facility: [facility] Address: [address] [place] [address] Performed By: #### 5 7021-8 ####VILLARREAL LABORATORYCLIA [id number] [place] [address] [place] MCHC (RBC) [Mass/Vol] 32.5 g/dL Normal 30.5-36.0 [facility] [place] Comment on above: Order Comment: Speci men Type: BLOOD SPECIMENOrdering Facility: [facility] Address: [address] [place] [address] Performed By: #### 5 7021-8 ####VILLARREAL LABORATORYCLIA [id number] [address] [place] MCV (RBC) [Entitic vol] 87.5 fL Normal 80.0-100.0 [facility] Comment on above: Order Comment: Speci men Type: BLOOD SPECIMENOrdering Facility: [facility] Address: [address] [place] [address] Performed By: #### 5 7021-8 ####VILLARREAL LABORATORYCLIA [id number] [place] [address] [place] Monocytes (Bld) [#/Vol] 0.81 10*3/uL Normal <0.87 [facility] Comment on above: Order Comment: Speci men Type: BLOOD SPECIMENOrdering Facility: [facility] Address: [address] [place] [address] Performed By: #### 5 7021-8 ####VILLARREAL LABORATORYCLIA [id number] [address] [place] Monocytes/100 WBC (Bld) 7.4 % Normal [facility] Comment on above: Order Comment: Speci men Type: BLOOD SPECIMENOrdering Facility: [facility] Address: [address] [place] [address] Performed By: #### 5 7021-8 ####VILLARREAL LABORATORYCLIA [id number] [place] [address] [place] Neutrophils (Bld) [#/Vol] 8.99 10*3/uL High 1.45-7.50 [facility] Comment on above: Order Comment: Speci men Type: BLOOD SPECIMENOrdering Facility: [facility] Address: [address] [place] [address] Performed By: #### 5 7021-8 ####VILLARREAL LABORATORYCLIA [id number] [address] [place] Neutrophils/100 WBC (Bld) 82.4 % Normal [facility] Comment on above: Order Comment: Speci men Type: BLOOD SPECIMENOrdering Facility: [facility] Address: [address] [place] [address] Performed By: #### 5 7021-8 ####VILLARREAL LABORATORYCLIA [id number] [place] [address] [place] Nucleated RBC (Bld) [#/Vol] 10*3/uL Normal <0.01 [facility] Comment on above: Order Comment: Speci men Type: BLOOD SPECIMENOrdering Facility: [facility] Address: [address] [place] [address] Performed By: #### 5 7021-8 ####VILLARREAL LABORATORYCLIA [id number] [address] STATES [facility] Nucleated RBC/100 WBC (Bld) [Ratio] 0.0 /100 WBC Normal [facility] Comment on above: Order Comment: Speci men Type: BLOOD SPECIMENOrdering Facility: [facility] Address: [address] [place] [address] Performed By: #### 5 7021-8 ####VILLARREAL LABORATORYCLIA [id number] [place] [address] [place] Platelet mean volume (Bld) [Entitic vol] 8.3 fL Low 9.0-12.7 [facility] Comment on above: Order Comment: Speci men Type: BLOOD SPECIMENOrdering Facility: [facility] Address: [address] [place] [address] Performed By: #### 5 7021-8 ####VILLARREAL LABORATORYCLIA [id number] [address] Platelets (Bld) [#/Vol] 564 10*3/uL High 150-400 [facility] Comment on above: Order Comment: Speci men Type: BLOOD SPECIMENOrdering Facility: [facility] Address: [address] [place] [address] Performed By: #### 5 7021-8 ####[facility] LABORATORYCLIA [id number] [address] [place] RBC (Bld) [#/Vol] 2.88 10*6/uL Low 3.90-5.20 [facility] Comment on above: Order Comment: Speci men Type: BLOOD SPECIMENOrdering Facility: [facility] Address: [address] [place] [address] Performed By: #### 5 7021-8 ####MAR[facility] LABORATORYCLIA [id number] [address] WBC (Bld) [#/Vol] 10.92 10*3/uL Normal 3.70-11.00 [facility] Comment on above: Order Comment: Speci men Type: BLOOD SPECIMENOrdering Facility: [facility] Address: [address] [place] [address] Performed By: #### 5 7021-8 ####MAR[facility] LABORATORYCLIA [id number] [address] CONSULTon 12-07-2024 CONSULT Normal [facility] CONSULT PROGon 12-07-2024 CONSULT PROG Normal [facility] CONSULT PROG Normal [facility] CONSULT PROG Normal [facility] CONSULT PRO Normal [facility] CRP SerPl-mCncon 12-07-2024 CRP [Mass/Vol] 3.6 mg/dL High <0.9 [facility] Comment on above: Order Comment: Speci men Type: BLOOD SPECIMENOrdering Facility: [facility] Address: [address] [place] [address] Performed By: #### 1 988-5, 86195-4, 03378-6, 3040-3 ####MAR[facility] LABORATORYCLIA [id number] [address] Comprehensive metabolic 2000 panelon 12-07-2024 Albumin [Mass/Vol] 2.6 g/dL Low 3.9-4.9 [facility] Comment on above: Order Comment: Speci men Type: BLOOD SPECIMENOrdering Facility: [facility] Address: [address] [place] [address] Performed By: #### 1 988-5, 96744-4, 29047-3, 3040-3 ####VILLARREAL LABORATORYCLIA [id number] [place] [address] [place] [facility] ALP [Catalytic activity/Vol] 111 U/L Normal 34-123 [facility] Comment on above: Order Comment: Speci men Type: BLOOD SPECIMENOrdering Facility: [facility] Address: [address] [place] [address] Performed By: #### 1 988-5, 59891-5, 76242-1, 3040-3 ####VILLARREAL LABORATORYCLIA [id number] [address] [place] [facility] ALT [Catalytic activity/Vol] U/L Low 7-38 [facility] Comment on above: Order Comment: Speci men Type: BLOOD SPECIMENOrdering Facility: [facility] Address: [address] [place] [address] Performed By: #### 1 988-5, 29818-5, 76507-4, 3040-3 ####VILLARREAL LABORATORYCLIA [id number] [place] [address] [facility] Anion gap [Moles/Vol] 9 mmol/L Normal 8-15 [facility] [place] Comment on above: Order Comment: Speci men Type: BLOOD SPECIMENOrdering Facility: [facility] Address: [address] [place] [address] Performed By: #### 1 988-5, 22222-7, 92153-6, 3040-3 ####VILLARREAL LABORATORYCLIA [id number] [place] [address] [facility] AST [Catalytic activity/Vol] 29 U/L Normal 13-35 [facility] Comment on above: Order Comment: Speci men Type: BLOOD SPECIMENOrdering Facility: [facility] Address: [address] [place] [address] Performed By: #### 1 988-5, 18520-5, 41060-8, 3040-3 ####VILLARREAL LABORATORYCLIA [id number] [place] [address] [place] Bilirubin [Mass/Vol] mg/dL Low 0.2-1.3 [facility] Comment on above: Order Comment: Speci men Type: BLOOD SPECIMENOrdering Facility: [facility] Address: [address] [place] [address] [place] [address] Performed By: #### 1 988-5, 74628-9, 63069-3, 0-3 ####VILLARREAL LABORATORYCLIA [id number] [place] [address] [place] Calcium [Mass/Vol] 9.3 mg/dL Normal 8.5-10.2 [facility] Comment on above: Order Comment: Speci men Type: BLOOD SPECIMENOrdering Facility: [facility] Address: [address] [place] [address] Performed By: #### 1 988-5, 86460-4, 82750-3, 3040-3 ####VILLARREAL LABORATORYCLIA [id number] [place] [address] [place] Chloride [Moles/Vol] 98 mmol/L Normal 98-107 [facility] Comment on above: Order Comment: Speci men Type: BLOOD SPECIMENOrdering Facility: [facility] Address: [address] [place] [address] [place] [address] Performed By: #### 1 988-5, 40494-8, 14380-0, 3040-3 ####VILLARREAL LABORATORYCLIA [id number] [place] [address] [place] CO2 [Moles/Vol] 28 mmol/L Normal 22-30 [facility] Comment on above: Order Comment: Speci men Type: BLOOD SPECIMENOrdering Facility: [facility] Address: [address] [place] [address] [place] [address] Performed By: #### 1 988-5, 07250-1, 68081-8, 3040-3 ####VILLARREAL LABORATORYCLIA [id number] [place] [address] [place] Creatinine [Mass/Vol] 0.76 mg/dL Normal 0.58-0.96 [facility] [place] Comment on above: Order Comment: Fan meade Type: BLOOD SPECIMENOrdering Facility: [facility] Address: [address] [place] [address] Performed By: #### 1 988-5, 69014-1, 42524-1, 0-3 ####MARION LABORATORYCLIA [id number] [place] [id number] [facility] Creatinine and Glomerular filtration rate.predicted panel (S/P/Bld) 75 mL/min/1.73m??? Normal >=60 [facility] Comment on above: Order Comment: [facility] Type: BLOOD SPECIMENOrdering Facility: [facility] Address: [address] [place] [address] Result Comment: Hilda mated Glomerular Filtration Rate [...] actual GFR. Performed By: #### 1 988-5, 91393-4, 13027-6, 0-3 ####MARION LABORATORYCLIA [id number] [place] [id number] [place] [facility] Glucose [Mass/Vol] 260 mg/dL High 74-99 [facility] Comment on above: Order Comment: [place] Type: BLOOD SPECIMENOrdering Facility: [facility] Address: [address] [place] [address] Result Comment: The [place] [employer] (ADA) provides guidance for cutoff [...] Standards of Medical Care in Diabetes 2016, [place] [employer]. Diabetes Care. 2016.39(Suppl 1). Performed By: #### 1 988-5, 67848-0, 94497-3, 3040-3 ####VILLARREAL LABORATORYCLIA [id number] [place] [address] [place] Potassium [Moles/Vol] 4.5 mmol/L Normal 3.7-5.1 [facility] [place] Comment on above: Order Comment: Speci men Type: BLOOD SPECIMENOrdering Facility: [facility] Address: [address] [place] [address] Performed By: #### 1 988-5, 23977-6, 78151-2, 0-3 ####VILLARREAL LABORATORYCLIA [id number] [place] [address] [place] Protein [Mass/Vol] 5.5 g/dL Low 6.3-8.0 [facility] Comment on above: Order Comment: Speci men Type: BLOOD SPECIMENOrdering Facility: [facility] Address: [address] [place] [address] Performed By: #### 1 988-5, 90637-7, 37942-1, 0-3 ####VILLARREAL LABORATORYCLIA [id number] [place] [id number] [place] Sodium [Moles/Vol] 135 mmol/L Low 136-144 [facility] Comment on above: Order Comment: Speci men Type: BLOOD SPECIMENOrdering Facility: [facility] Address: [address] [place] [address] Performed By: #### 1 988-5, 16670-1, 91433-4, 3040-3 ####VILLARREAL LABORATORYCLIA [id number] [place] [id number] [place] Urea nitrogen [Mass/Vol] 43 mg/dL High 7-21 [facility] Comment on above: Order Comment: Speci men Type: BLOOD SPECIMENOrdering Facility: [facility] Address: [address] [place] [address] Performed By: #### 1 988-5, 18595-5, 87803-2, 3040-3 ####MAR[facility] LABORATORYCLIA [id number] [place] [address] [place] ESR Westergren method (Bld) [Velocity]on 12-07-2024 ESR (Bld) [Velocity] 103 mm/h High 0-20 [facility] Comment on above: Order Comment: Speci men Type: BLOOD SPECIMENOrdering Facility: [facility] Address: [address] [place] [address] Performed By: #### 4 537-7 ####[facility] LABCLIA [id number] [place] [address] [place] Folate SerPl-mCncon 12-07-19 25 Folate [Mass/Vol] 7.7 ng/mL Normal >4.7 [facility] Comment on above: Order Comment: Speci men Type: BLOOD SPECIMENOrdering Facility: [facility] Address: [address] [place] [address] Performed By: #### 2 284-8, 2132-9 ####MAR[facility] LABORATORYCLIA [id number] [place] [address] [place] Lipase SerPl-cCncon 12-07-19 25 Lipase [Catalytic activity/Vol] 50 U/L Normal 16-61 [facility] Comment on above: Order Comment: Speci men Type: BLOOD SPECIMENOrdering Facility: [facility] Address: [address] [place] [address] Performed By: #### 1 988-5, 04680-6, 81719-8, 3040-3 ####MAR[facility] LABORATORYCLIA [id number] [address] [place] Magnesium SerPl-mCncon 12-07 Magnesium [Mass/Vol] 1.7 mg/dL Normal 1.7-2.3 [facility] Comment on above: Order Comment: Speci men Type: BLOOD SPECIMENOrdering Facility: [facility] Address: [address] [place] [address] Performed By: #### 1 988-5, 57679-2, 09291-2, 3040-3 ####VILLARREAL LABORATORYCLIA [id number] [place] [address] [place] US DVT LOWER BILon US DVT LOWER RADHA Normal [facility] Vit B12 SerPl-mCncon 025 Cobalamin (Vitamin B12) [Mass/Vol] 400 pg/mL Normal 232-1245 [facility] Comment on above: Order Comment: Speci men Type: BLOOD SPECIMENOrdering Facility: [facility] Address: [address] [address] Performed By: #### 2 284-8, 2132-9 ####MAR[facility] LABORATORYCLIA [id number] [place] [address] [place] XR ABD 2V SUPINE W UPR/DECUB /CTLon 12-07-2024 XR ABD 2V SUPINE W UPR/DECUB/CTL Normal [facility] CASE MANAGEMon 12-06-2024 CASE MANAGEM Normal [facility] CBC W Auto Differential pane l (Bld)on 12-06-2024 Basophils (Bld) [#/Vol] 0.03 10*3/uL Normal <0.11 [facility] Comment on above: Order Comment: Speci men Type: BLOOD SPECIMENOrdering Facility: [facility] Address: [address] [place] [address] Performed By: #### 5 7021-8 ####VILLARREAL LABORATORYCLIA [id number] [address] OF [facility] Basophils/100 WBC (Bld) 0.2 % Normal [facility] Comment on above: Order Comment: Speci men Type: BLOOD SPECIMENOrdering Facility: [facility] Address: [address] [place] [address] Performed By: #### 5 7021-8 ####VILLARREAL LABORATORYCLIA [id number] [address] [place] Differential cell count method Nom (Bld) Auto Normal [facility] Comment on above: Order Comment: Speci men Type: BLOOD SPECIMENOrdering Facility: [facility] Address: [address] [place] [address] Performed By: #### 5 7021-8 ####VILLARREAL LABORATORYCLIA [id number] [place] [address] [place] Eosinophils (Bld) [#/Vol] 0.09 10*3/uL Normal <0.46 [facility] Comment on above: Order Comment: Speci men Type: BLOOD SPECIMENOrdering Facility: [facility] Address: [address] [place] [address] Performed By: #### 5 7021-8 ####VILLARREAL LABORATORYCLIA [id number] [place] [address] [place] Eosinophils/100 WBC (Bld) 0.6 % Normal [facility] Comment on above: Order Comment: Speci men Type: BLOOD SPECIMENOrdering Facility: [facility] Address: [address] [place] [address] Performed By: #### 5 7021-8 ####VILLARREAL LABORATORYCLIA [id number] [place] [address] [place] Erythrocyte distribution width (RBC) [Ratio] 15.9 % High 11.5-15.0 [facility] Comment on above: Order Comment: Speci men Type: BLOOD SPECIMENOrdering Facility: [facility] Address: [address] [place] [address] Performed By: #### 5 7021-8 ####VILLARREAL LABORATORYCLIA [id number] [address] [place] Hematocrit (Bld) [Volume fraction] 25.5 % Low 36.0-46.0 [facility] Comment on above: Order Comment: Speci men Type: BLOOD SPECIMENOrdering Facility: [facility] Address: [address] [place] [address] Performed By: #### 5 7021-8 ####VILLARREAL LABORATORYCLIA [id number] [place] [address] [place] Hemoglobin (Bld) [Mass/Vol] 8.3 g/dL Low 11.5-15.5 [facility] Comment on above: Order Comment: Speci men Type: BLOOD SPECIMENOrdering Facility: [facility] Address: [address] [place] [address] Performed By: #### 5 7021-8 ####VILLARRE[facility] LABORATORYCLIA [id number] [address] Immature granulocytes (Bld) [#/Vol] 0.15 10*3/uL High <0.10 [facility] Comment on above: Order Comment: Speci men Type: BLOOD SPECIMENOrdering Facility: [facility] Address: [address] [place] [address] Performed By: #### 5 7021-8 ####VILLAR[facility] LABORATORYCLIA [id number] [address] Immature granulocytes/100 WBC (Bld) 1.0 % Normal [facility] Comment on above: Order Comment: Speci men Type: BLOOD SPECIMENOrdering Facility: [facility] Address: [address] [place] [address] Performed By: #### 5 7021-8 ####VILLARREAL LABORATORYCLIA [id number] [address] STATES [facility] Lymphocytes (Bld) [#/Vol] 0.98 10*3/uL Low 1.00-4.00 [facility] Comment on above: Order Comment: Speci men Type: BLOOD SPECIMENOrdering Facility: [facility] Address: [address] [place] [address] Performed By: #### 5 7021-8 ####VILLARRE[facility] LABORATORYCLIA [id number] [address] Lymphocytes/100 WBC (Bld) 6.7 % Normal [facility] Comment on above: Order Comment: Speci men Type: BLOOD SPECIMENOrdering Facility: [facility] Address: [address] [place] [address] Performed By: #### 5 7021-8 ####VILLARREAL LABORATORYCLIA [id number] [address] [place] MCH (RBC) [Entitic mass] 27.9 pg Normal 26.0-34.0 [facility] Comment on above: Order Comment: Speci men Type: BLOOD SPECIMENOrdering Facility: [facility] Address: [address] [place] [address] Performed By: #### 5 7021-8 ####VILLARRE[facility] LABORATORYCLIA [id number] [address] [place] [facility] MCHC (RBC) [Mass/Vol] 32.5 g/dL Normal 30.5-36.0 [facility] [place] Comment on above: Order Comment: Speci men Type: BLOOD SPECIMENOrdering Facility: [facility] Address: [address] [place] [address] Performed By: #### 5 7021-8 ####VILLARREAL LABORATORYCLIA [id number] [address] [place] MCV (RBC) [Entitic vol] 85.9 fL Normal 80.0-100.0 [facility] Comment on above: Order Comment: Speci men Type: BLOOD SPECIMENOrdering Facility: [facility] Address: [address] [place] [address] Performed By: #### 5 7021-8 ####VILLARREAL LABORATORYCLIA [id number] [place] [address] [place] Monocytes (Bld) [#/Vol] 0.94 10*3/uL High <0.87 [facility] Comment on above: Order Comment: Speci men Type: BLOOD SPECIMENOrdering Facility: [facility] Address: [address] [place] [address] Performed By: #### 5 7021-8 ####VILLAR[facility] LABORATORYCLIA [id number] [address] Monocytes/100 WBC (Bld) 6.5 % Normal [facility] Comment on above: Order Comment: Speci men Type: BLOOD SPECIMENOrdering Facility: [facility] Address: [address] [place] [address] Performed By: #### 5 7021-8 ####VILLARREAL LABORATORYCLIA [id number] [place] [address] [place] Neutrophils (Bld) [#/Vol] 12.37 10*3/uL High 1.45-7.50 [facility] Comment on above: Order Comment: Speci men Type: BLOOD SPECIMENOrdering Facility: [facility] Address: [address] [place] [address] Performed By: #### 5 7021-8 ####VILLAR[facility] LABORATORYCLIA [id number] [address] Neutrophils/100 WBC (Bld) 85.0 % Normal [facility] Comment on above: Order Comment: Speci men Type: BLOOD SPECIMENOrdering Facility: [facility] Address: [address] [place] [address] Performed By: #### 5 7021-8 ####VILLARREAL LABORATORYCLIA [id number] [place] [address] [place] Nucleated RBC (Bld) [#/Vol] 10*3/uL Normal <0.01 [facility] Comment on above: Order Comment: Speci men Type: BLOOD SPECIMENOrdering Facility: [facility] Address: [address] [place] [address] Performed By: #### 5 7021-8 ####VILLARREAL LABORATORYCLIA [id number] [place] [address] [place] Nucleated RBC/100 WBC (Bld) [Ratio] 0.0 /100 WBC Normal [facility] Comment on above: Order Comment: Speci men Type: BLOOD SPECIMENOrdering Facility: [facility] Address: [address] [place] [address] Performed By: #### 5 7021-8 ####VILLARRE[facility] LABORATORYCLIA [id number] [place] [address] [place] Platelet mean volume (Bld) [Entitic vol] 8.3 fL Low 9.0-12.7 [facility] Comment on above: Order Comment: Speci men Type: BLOOD SPECIMENOrdering Facility: [facility] Address: [address] [place] [address] Performed By: #### 5 7021-8 ####VILLARRE[facility] LABORATORYCLIA [id number] [place] [address] [place] Platelets (Bld) [#/Vol] 602 10*3/uL High 150-400 [facility] Comment on above: Order Comment: Speci men Type: BLOOD SPECIMENOrdering Facility: [facility] Address: [address] [place], [place] [id number] Performed By: #### 5 7021-8 ####VILLARRE[facility] LABORATORYCLIA [id number] [address] [place] RBC (Bld) [#/Vol] 2.97 10*6/uL Low 3.90-5.20 [facility] Comment on above: Order Comment: Speci men Type: BLOOD SPECIMENOrdering Facility: [facility] Address: [address] [place] [address] Performed By: #### 5 7021-8 ####MARION LABORATORYCLIA [id number] [address] WBC (Bld) [#/Vol] 14.56 10*3/uL High 3.70-11.00 [facility] Comment on above: Order Comment: Speci men Type: BLOOD SPECIMENOrdering Facility: [facility] Address: [address] [place] [address] Performed By: #### 5 7021-8 ####MARION LABORATORYCLIA [id number] [address] [place] CONSULTon 12-06-2024 CONSULT Normal [facility] CONSULT Normal [facility] CONSULT PROGon 12-06-2024 CONSULT PROG [facility] CONSULT PROG Normal [facility] Comprehensive metabolic 2000 panelon 12-06-2024 Albumin [Mass/Vol] 2.5 g/dL Low 3.9-4.9 [facility] Comment on above: Order Comment: Speci men Type: BLOOD SPECIMENOrdering Facility: [facility] Address: [address] [place] [address] Performed By: #### 2 951-2, 40240-0, 47267-3 ####MARION LABORATORYCLIA [id number] [address] [place] ALP [Catalytic activity/Vol] 112 U/L Normal 34-123 [facility] Comment on above: Order Comment: Speci men Type: BLOOD SPECIMENOrdering Facility: [facility] Address: [address] [place] [address] Performed By: #### 2 951-2, , ####VILLARREAL LABORATORYCLIA [id number] [place] [address] [place] ALT [Catalytic activity/Vol] U/L Low 7-38 [facility] Comment on above: Order Comment: Speci men Type: BLOOD SPECIMENOrdering Facility: [facility] Address: [facility] [place] [address] Performed By: #### 2 951-2, , ####VILLARREAL LABORATORYCLIA [id number] [place] [id number] [place] Anion gap [Moles/Vol] 10 mmol/L Normal 8-15 [facility] Comment on above: Order Comment: Speci men Type: BLOOD SPECIMENOrdering Facility: [facility] Address: [address] [place] [address] [place] [address] Performed By: #### 2 951-2, , ####VILLARREAL LABORATORYCLIA [id number] [place] [address] [place] AST [Catalytic activity/Vol] 25 U/L Normal 13-35 [facility] Comment on above: Order Comment: Speci men Type: BLOOD SPECIMENOrdering Facility: [facility] Address: [facility] [place] [address] Performed By: #### 2 951-2, , ####VILLARREAL LABORATORYCLIA [id number] [place] [address] [place] Bilirubin [Mass/Vol] mg/dL Low 0.2-1.3 [facility] Comment on above: Order Comment: Speci men Type: BLOOD SPECIMENOrdering Facility: [facility] Address: [facility] [place] [address] Performed By: #### 2 951-2, , ####VILLARREAL LABORATORYCLIA [id number] [place] [id number] [place] Calcium [Mass/Vol] 9.5 mg/dL Normal 8.5-10.2 [facility] Comment on above: Order Comment: Speci men Type: BLOOD SPECIMENOrdering Facility: [facility] Address: [address] [place] [address] Performed By: #### 2 951-2, , ####VILLARREAL LABORATORYCLIA [id number] [place] [address] [place] Chloride [Moles/Vol] 97 mmol/L Low 98-107 [facility] Comment on above: Order Comment: Speci men Type: BLOOD SPECIMENOrdering Facility: [facility] Address: [address] [place] [address] Performed By: #### 2 951-2, , ####VILLARREAL LABORATORYCLIA [id number] [place] [address] [place] CO2 [Moles/Vol] 27 mmol/L Normal 22-30 [facility] Comment on above: Order Comment: Speci men Type: BLOOD SPECIMENOrdering Facility: [facility] Address: [address] [place] [address] Performed By: #### 2 951-2, , ####VILLARREAL LABORATORYCLIA [id number] [place] [address] [place] Creatinine [Mass/Vol] 0.95 mg/dL Normal 0.58-0.96 [facility] Comment on above: Order Comment: Speci men Type: BLOOD SPECIMENOrdering Facility: [facility] Address: [address] [place] [address] Performed By: #### 2 951-2, , ####VILLARREAL LABORATORYCLIA [id number] [place] [id number] [place] Creatinine and Glomerular filtration rate.predicted panel (S/P/Bld) 58 mL/min/1.73m??? Low >=60 [facility] Comment on above: Order Comment: Speci men Type: BLOOD SPECIMENOrdering Facility: [facility] Address: [address] [place], [place] [address] Result Comment: Hilda mated Glomerular Filtration Rate [...] GFR. Performed By: #### 2 951-2, , ####MARION LABORATORYCLIA [id number] [place] [id number] [place] Glucose [Mass/Vol] 93 mg/dL Normal 74-99 [facility] Comment on above: Order Comment: Fan meade Type: BLOOD SPECIMENOrdering Facility: [facility] Address: [address] [place] [address] Result Comment: The [place] [employer] (ADA) provides guidance for cutoff [...] Standards of Medical Care in Diabetes 2016, [place] [employer]. Diabetes Care. 2016.39(Suppl 1). Performed By: #### 2 951-2, , ####MARION LABORATORYCLIA [id number] [place] [id number] [place] Potassium [Moles/Vol] 3.8 mmol/L Normal 3.7-5.1 [facility] [place] Comment on above: Order Comment: Fna meade Type: BLOOD SPECIMENOrdering Facility: [facility] Address: [address] [place] [address] Performed By: #### 2 951-2, 09688-4, 51929-1 ####MARION LABORATORYCLIA [id number] [place] [address] [place] Protein [Mass/Vol] 5.7 g/dL Low 6.3-8.0 [facility] Comment on above: Order Comment: Speci men Type: BLOOD SPECIMENOrdering Facility: [facility] Address: [address] [place] [address] Performed By: #### 2 951-2, , ####VILLARREAL LABORATORYCLIA [id number] [place] [address] [place] Urea nitrogen [Mass/Vol] 45 mg/dL High 7-21 [facility] Comment on above: Order Comment: Speci men Type: BLOOD SPECIMENOrdering Facility: [facility] Address: [address] [place] [address] Performed By: #### 2 951-2, , ####VILLARREAL LABORATORYCLIA [id number] [place] [address] [place] Magnesium SerPl-mCncon 12-06 Magnesium [Mass/Vol] 1.8 mg/dL Normal 1.7-2.3 [facility] Comment on above: Order Comment: Speci men Type: BLOOD SPECIMENOrdering Facility: [facility] Address: [address] [place] [address] Performed By: #### 2 951-2, , ####VILLARREAL LABORATORYCLIA [id number] [place] [address] [place] Sodium SerPl-sCncon 12-06-19 25 Sodium [Moles/Vol] 135 mmol/L Low 136-144 [facility] Comment on above: Order Comment: Speci men Type: BLOOD SPECIMENOrdering Facility: [facility] Address: [address] [place] [address] Performed By: #### 2 951-2 ####VILLARREAL LABORATORYCLIA [id number] [place] [address] [place] Sodium [Moles/Vol] 132 mmol/L Low 136-144 [facility] Comment on above: Order Comment: Speci men Type: BLOOD SPECIMENOrdering Facility: [facility] Address: [address] [place] [address] Performed By: #### 2 951-2 ####VILLARREAL LABORATORYCLIA [id number] [place] [address] [place] Sodium [Moles/Vol] 136 mmol/L Normal 136-144 [facility] Comment on above: Order Comment: Speci men Type: BLOOD SPECIMENOrdering Facility: [facility] Address: [address] [place] [address] Performed By: #### 2 951-2 ####VILLARREAL LABORATORYCLIA [id number] [place] [address] [place] Sodium [Moles/Vol] 134 mmol/L Low 136-144 [facility] Comment on above: Order Comment: Speci men Type: BLOOD SPECIMENOrdering Facility: [facility] Address: [address] [place] [address] Performed By: #### 2 951-2, 32997-8, 42523-4 ####VILLARREAL LABORATORYCLIA [id number] [place] [address] [place] Sodium [Moles/Vol] 131 mmol/L Low 136-144 [facility] Comment on above: Order Comment: Speci men Type: BLOOD SPECIMENOrdering Facility: [facility] Address: [address] [place] [address] Performed By: #### 2 951-2 ####VILLARREAL LABORATORYCLIA [id number] [place] [address] [place] THERAPY NTon 12-06-2024 THERAPY NT Normal [facility] URINALYSIS, REFLEX MICROSCOP ICon 12-06-2024 Bilirubin Ql (U) Negative Normal Negative [facility] Comment on above: Order Comment: Speci men Type: URINE SPECIMENOrdering Facility: [facility] Address: [address] [place] [address] Performed By: #### L [id number] ####VILLARREAL LABORATORYCLIA [id number] [place] [address] [place] Clarity (Unsp spec) Clear Normal Clear [facility] Comment on above: Order Comment: Speci men Type: URINE SPECIMENOrdering Facility: [facility] Address: [address] [place] [address] Performed By: #### L [id number] ####VILLARREAL LABORATORYCLIA [id number] [address] [place] Color (U) Yellow Normal Yellow [facility] Comment on above: Order Comment: Speci men Type: URINE SPECIMENOrdering Facility: [facility] Address: [address] [place] [address] Performed By: #### L [id number] ####VILLARREAL LABORATORYCLIA [id number] [place] [address] [place] Epithelial cells LM.HPF (Urine sed) [#/Area] Few Normal [facility] Comment on above: Order Comment: Speci men Type: URINE SPECIMENOrdering Facility: [facility] Address: [address] [place] [address] Performed By: #### L [id number] ####VILLARREAL LABORATORYCLIA [id number] [place] [address] [place] Glucose Test strip (U) [Mass/Vol] Negative Normal Negative [facility] Comment on above: Order Comment: Speci men Type: URINE SPECIMENOrdering Facility: [facility] Address: [address] [place] [address] Performed By: #### L [id number] ####VILLARREAL LABORATORYCLIA [id number] [address] [place] Hemoglobin Ql (U) Negative Normal Negative [facility] Comment on above: Order Comment: Speci men Type: URINE SPECIMENOrdering Facility: [facility] Address: [address] [place] [address] Performed By: #### L [id number] ####VILLARREAL LABORATORYCLIA [id number] [address] [place] Ketones Ql (U) Negative Normal Negative [facility] Comment on above: Order Comment: Speci men Type: URINE SPECIMENOrdering Facility: [facility] Address: [address] [place], [place] [address] Performed By: #### L [id number] ####VILLARREAL LABORATORYCLIA [id number] [place] [address] [place] Leukocyte esterase Test strip Ql (U) 1+ Abnormal Negative [facility] Comment on above: Order Comment: Speci men Type: URINE SPECIMENOrdering Facility: [facility] Address: [address] [place] [address] Performed By: #### L [id number] ####VILLARREAL LABORATORYCLIA [id number] [place] [address] [place] Nitrite Ql (U) Negative Normal Negative [facility] Comment on above: Order Comment: Speci men Type: URINE SPECIMENOrdering Facility: [facility] Address: [address] [place] [address] Performed By: #### L [id number] ####VILLARREAL LABORATORYCLIA [id number] [place] [address] [place] pH (U) 6.0 [pH] Normal 5.0-8.0 [facility] Comment on above: Order Comment: Speci men Type: URINE SPECIMENOrdering Facility: [facility] Address: [address] [place] [address] Performed By: #### L [id number] ####VILLARREAL LABORATORYCLIA [id number] [place] [address] [place] Protein (U) [Mass/Vol] 1+ Abnormal Negative [facility] Comment on above: Order Comment: Speci men Type: URINE SPECIMENOrdering Facility: [facility] Address: [address] [place] [address] Performed By: #### L [id number] ####VILLARREAL LABORATORYCLIA [id number] [place] [address] [place] RBC LM.HPF (Urine sed) [#/Area] 0-3 /HPF Normal 0-3 /HPF [facility] Comment on above: Order Comment: Speci men Type: URINE SPECIMENOrdering Facility: [facility] Address: [address] [place] [address] Performed By: #### L [id number] ####VILLARREAL LABORATORYCLIA [id number] [place] [address] [place] Specific gravity (U) [Rel density] 1.010 Normal 1.005-1.030 [facility] Comment on above: Order Comment: Speci men Type: URINE SPECIMENOrdering Facility: [facility] Address: [address] [place] [address] Performed By: #### L [id number] ####VILLARREAL LABORATORYCLIA [id number] [address] [place] Urobilinogen Ql (U) 0.2 EU/dL Normal 0.2-1.0 EU/dL [facility] Comment on above: Order Comment: Speci men Type: URINE SPECIMENOrdering Facility: [facility] Address: [address] [place] [address] Performed By: #### L [id number] ####MARION LABORATORYCLIA [id number] [place] [address] [place] WBC LM.HPF (Urine sed) [#/Area] 0-5 /HPF Normal 0-5 /HPF [facility] Comment on above: Order Comment: Speci men Type: URINE SPECIMENOrdering Facility: [facility] Address: [address] [place] [address] Performed By: #### L [id number] ####VILLARREAL LABORATORYCLIA [id number] [address] [place] Yeast.budding LM.HPF (Urine sed) [#/Area] Few Abnormal None Seen [facility] Comment on above: Order Comment: Speci men Type: URINE SPECIMENOrdering Facility: [facility] Address: [address] [place] [address] Performed By: #### L [id number] ####VILLARREAL LABORATORYCLIA [id number] [place] [address] [place] ALLIED HEALTHon 12-05-2024 ALLIED HEALTH Normal [facility] CASE MANAGEMon 12-05-2024 CASE MANAGEM Normal [facility] CASE MANAGEM [facility] CBC W Auto Differential pane l (Bld)on 12-05-2024 Basophils (Bld) [#/Vol] 10*3/uL Normal <0.11 [facility] Comment on above: Order Comment: Speci men Type: BLOOD SPECIMENOrdering Facility: [facility] Address: [address] [place] [address] Performed By: #### 5 7021-8 ####VILLARREAL LABORATORYCLIA [id number] [place] [address] [place] Basophils/100 WBC (Bld) 0.1 % Normal [facility] Comment on above: Order Comment: Speci men Type: BLOOD SPECIMENOrdering Facility: [facility] Address: [address] [place] [address] Performed By: #### 5 7021-8 ####VILLARREAL LABORATORYCLIA [id number] [place] [address] [place] Differential cell count method Nom (Bld) Auto Normal [facility] Comment on above: Order Comment: Speci men Type: BLOOD SPECIMENOrdering Facility: [facility] Address: [address] [place] [address] Performed By: #### 5 7021-8 ####VILLARREAL LABORATORYCLIA [id number] [place] [address] [place] Eosinophils (Bld) [#/Vol] 10*3/uL Normal <0.46 [facility] Comment on above: Order Comment: Speci men Type: BLOOD SPECIMENOrdering Facility: [facility] Address: [address] [place] [address] Performed By: #### 5 7021-8 ####VILLARREAL LABORATORYCLIA [id number] [address] [place] Eosinophils/100 WBC (Bld) 0.0 % Normal [facility] Comment on above: Order Comment: Speci men Type: BLOOD SPECIMENOrdering Facility: [facility] Address: [address] [place] [address] Performed By: #### 5 7021-8 ####VILLARREAL LABORATORYCLIA [id number] [place] [id number] [place] Erythrocyte distribution width (RBC) [Ratio] 15.8 % High 11.5-15.0 [facility] Comment on above: Order Comment: Speci men Type: BLOOD SPECIMENOrdering Facility: [facility] Address: [address] [place] [address] Performed By: #### 5 7021-8 ####VILLARREAL LABORATORYCLIA [id number] [address] Hematocrit (Bld) [Volume fraction] 26.3 % Low 36.0-46.0 [facility] Comment on above: Order Comment: Speci men Type: BLOOD SPECIMENOrdering Facility: [facility] Address: [address] [place] [address] Performed By: #### 5 7021-8 ####VILLARREAL LABORATORYCLIA [id number] [address] [place] Hemoglobin (Bld) [Mass/Vol] 8.5 g/dL Low 11.5-15.5 [facility] Comment on above: Order Comment: Speci men Type: BLOOD SPECIMENOrdering Facility: [facility] Address: [address] [place] [address] Performed By: #### 5 7021-8 ####VILLARREAL LABORATORYCLIA [id number] [address] Immature granulocytes (Bld) [#/Vol] 0.11 10*3/uL High <0.10 [facility] Comment on above: Order Comment: Speci men Type: BLOOD SPECIMENOrdering Facility: [facility] Address: [address] [place] [address] Performed By: #### 5 7021-8 ####VILLARREAL LABORATORYCLIA [id number] [address] Immature granulocytes/100 WBC (Bld) 0.9 % Normal [facility] Comment on above: Order Comment: Speci men Type: BLOOD SPECIMENOrdering Facility: [facility] Address: [address] [place] [address] Performed By: #### 5 7021-8 ####VILLARREAL LABORATORYCLIA [id number] [address] Lymphocytes (Bld) [#/Vol] 0.46 10*3/uL Low 1.00-4.00 [facility] Comment on above: Order Comment: Speci men Type: BLOOD SPECIMENOrdering Facility: [facility] Address: [address] [place] [address] Performed By: #### 5 7021-8 ####VILLARREAL LABORATORYCLIA [id number] [address] Lymphocytes/100 WBC (Bld) 3.8 % Normal [facility] Comment on above: Order Comment: Speci men Type: BLOOD SPECIMENOrdering Facility: [facility] Address: [address] [place] [address] Performed By: #### 5 7021-8 ####VILLARREAL LABORATORYCLIA [id number] [address] MCH (RBC) [Entitic mass] 27.9 pg Normal 26.0-34.0 [facility] Comment on above: Order Comment: Speci men Type: BLOOD SPECIMENOrdering Facility: [facility] Address: [address] [place] [address] Performed By: #### 5 7021-8 ####VILLARREAL LABORATORYCLIA [id number] [address] MCHC (RBC) [Mass/Vol] 32.3 g/dL Normal 30.5-36.0 [facility] Comment on above: Order Comment: Speci men Type: BLOOD SPECIMENOrdering Facility: [facility] Address: [address] [place] [address] Performed By: #### 5 7021-8 ####VILLARREAL LABORATORYCLIA [id number] [address] MCV (RBC) [Entitic vol] 86.2 fL Normal 80.0-100.0 [facility] Comment on above: Order Comment: Speci men Type: BLOOD SPECIMENOrdering Facility: [facility] Address: [address] [place] [address] Performed By: #### 5 7021-8 ####VILLARREAL LABORATORYCLIA [id number] [address] Monocytes (Bld) [#/Vol] 0.18 10*3/uL Normal <0.87 [facility] Comment on above: Order Comment: Speci men Type: BLOOD SPECIMENOrdering Facility: [facility] Address: [address] [place] [address] Performed By: #### 5 7021-8 ####VILLARREAL LABORATORYCLIA [id number] [place] [address] [place] Monocytes/100 WBC (Bld) 1.5 % Normal [facility] Comment on above: Order Comment: Speci men Type: BLOOD SPECIMENOrdering Facility: [facility] Address: [address] [place] [address] Performed By: #### 5 7021-8 ####VILLARREAL LABORATORYCLIA [id number] [place] [address] [place] Neutrophils (Bld) [#/Vol] 11.38 10*3/uL High 1.45-7.50 [facility] Comment on above: Order Comment: Speci men Type: BLOOD SPECIMENOrdering Facility: [facility] Address: [address] [place] [address] Performed By: #### 5 7021-8 ####VILLARREAL LABORATORYCLIA [id number] [place] [address] [place] Neutrophils/100 WBC (Bld) 93.7 % Normal [facility] Comment on above: Order Comment: Speci men Type: BLOOD SPECIMENOrdering Facility: [facility] Address: [address] [place] [address] Performed By: #### 5 7021-8 ####VILLARREAL LABORATORYCLIA [id number] [place] [address] [place] Nucleated RBC (Bld) [#/Vol] 10*3/uL Normal <0.01 [facility] Comment on above: Order Comment: Speci men Type: BLOOD SPECIMENOrdering Facility: [facility] Address: [address] [place] [address] Performed By: #### 5 7021-8 ####VILLARREAL LABORATORYCLIA [id number] [place] [address] [place] Nucleated RBC/100 WBC (Bld) [Ratio] 0.0 /100 WBC Normal [facility] Comment on above: Order Comment: Speci men Type: BLOOD SPECIMENOrdering Facility: [facility] Address: [address] [place] [address] Performed By: #### 5 7021-8 ####VILLARREAL LABORATORYCLIA [id number] [address] [place] Platelet mean volume (Bld) [Entitic vol] 8.8 fL Low 9.0-12.7 [facility] Comment on above: Order Comment: Speci men Type: BLOOD SPECIMENOrdering Facility: [facility] Address: [facility] [place] [address] Performed By: #### 5 7021-8 ####MARION LABORATORYCLIA [id number] [address] [place] Platelets (Bld) [#/Vol] 568 10*3/uL High 150-400 [facility] Comment on above: Order Comment: Speci men Type: BLOOD SPECIMENOrdering Facility: [facility] Address: [facility] [place] [address] Performed By: #### 5 7021-8 ####MARION LABORATORYCLIA [id number] [address] [place] RBC (Bld) [#/Vol] 3.05 10*6/uL Low 3.90-5.20 [facility] Comment on above: Order Comment: Speci men Type: BLOOD SPECIMENOrdering Facility: [facility] Address: [facility] [place] [address] Performed By: #### 5 7021-8 ####VILLARREAL LABORATORYCLIA [id number] [address] [place] WBC (Bld) [#/Vol] 12.14 10*3/uL High 3.70-11.00 [facility] Comment on above: Order Comment: Speci men Type: BLOOD SPECIMENOrdering Facility: [facility] Address: [facility] [place] [address] Performed By: #### 5 7021-8 ####VILLARREAL LABORATORYCLIA [id number] [place] [id number] [facility] CBC panel Auto (Bld)on 12-05 Erythrocyte distribution width (RBC) [Ratio] 15.8 % High 11.5-15.0 [facility] Comment on above: Order Comment: Speci men Type: BLOOD SPECIMENOrdering Facility: [facility] Address: [address] [place] [address] Performed By: #### 5 8410-2 ####VILLARREAL LABORATORYCLIA [id number] [address] [place] Hematocrit (Bld) [Volume fraction] 24.8 % Low 36.0-46.0 [facility] Comment on above: Order Comment: Speci men Type: BLOOD SPECIMENOrdering Facility: [facility] Address: [address] [place] [address] Performed By: #### 5 8410-2 ####VILLARREAL LABORATORYCLIA [id number] [address] [place] Hemoglobin (Bld) [Mass/Vol] 8.2 g/dL Low 11.5-15.5 [facility] Comment on above: Order Comment: Speci men Type: BLOOD SPECIMENOrdering Facility: [facility] Address: [address] [place] [address] Performed By: #### 5 8410-2 ####VILLARREAL LABORATORYCLIA [id number] [address] [place] MCH (RBC) [Entitic mass] 28.1 pg Normal 26.0-34.0 [facility] Comment on above: Order Comment: Speci men Type: BLOOD SPECIMENOrdering Facility: [facility] Address: [address] [place] [address] Performed By: #### 5 8410-2 ####VILLARREAL LABORATORYCLIA [id number] [address] [place] MCHC (RBC) [Mass/Vol] 33.1 g/dL Normal 30.5-36.0 [facility] [place] Comment on above: Order Comment: Speci men Type: BLOOD SPECIMENOrdering Facility: [facility] Address: [address] [place] [address] Performed By: #### 5 8410-2 ####VILLARREAL LABORATORYCLIA [id number] [place] [address] [place] MCV (RBC) [Entitic vol] 84.9 fL Normal 80.0-100.0 [facility] Comment on above: Order Comment: Speci men Type: BLOOD SPECIMENOrdering Facility: [facility] Address: [address] [place] [address] Performed By: #### 5 8410-2 ####VILLARREAL LABORATORYCLIA [id number] [place] [address] [place] Nucleated RBC (Bld) [#/Vol] 10*3/uL Normal <0.01 [facility] Comment on above: Order Comment: Speci men Type: BLOOD SPECIMENOrdering Facility: [facility] Address: [address] [place] [address] Performed By: #### 5 8410-2 ####VILLARREAL LABORATORYCLIA [id number] [address] [place] Platelet mean volume (Bld) [Entitic vol] 8.8 fL Low 9.0-12.7 [facility] Comment on above: Order Comment: Speci men Type: BLOOD SPECIMENOrdering Facility: [facility] Address: [address] [place] [address] Performed By: #### 5 8410-2 ####VILLARREAL LABORATORYCLIA [id number] [place] [address] [place] Platelets (Bld) [#/Vol] 574 10*3/uL High 150-400 [facility] Comment on above: Order Comment: Speci men Type: BLOOD SPECIMENOrdering Facility: [facility] Address: [address] [place] [address] Performed By: #### 5 8410-2 ####VILLARREAL LABORATORYCLIA [id number] [place] [address] [place] RBC (Bld) [#/Vol] 2.92 10*6/uL Low 3.90-5.20 [facility] Comment on above: Order Comment: Speci men Type: BLOOD SPECIMENOrdering Facility: [facility] Address: [address] [place] [address] Performed By: #### 5 8410-2 ####VILLARREAL LABORATORYCLIA [id number] [place] [address] [place] WBC (Bld) [#/Vol] 13.26 10*3/uL High 3.70-11.00 [facility] Comment on above: Order Comment: Speci men Type: BLOOD SPECIMENOrdering Facility: [facility] Address: [address] [place], [place] [address] [address] Performed By: #### 5 8410-2 ####MARION LABORATORYCLIA [id number] [place] [address] [place] [facility] [place] CONSULT PROGon 12-05-2024 CONSULT PRO Normal [facility] CONSULT PROG Normal [facility] CONSULT PROG Normal [facility] Comprehensive metabolic 2000 panelon 12-05-2024 Albumin [Mass/Vol] 2.5 g/dL Low 3.9-4.9 [facility] Comment on above: Order Comment: Speci men Type: BLOOD SPECIMENOrdering Facility: [facility] Address: [address] [place] [address] Performed By: #### 3 040-3, 98649-8 ####MARION LABORATORYCLIA [id number] [place] [id number] [place] ALP [Catalytic activity/Vol] 117 U/L Normal 34-123 [facility] Comment on above: Order Comment: Speci men Type: BLOOD SPECIMENOrdering Facility: [facility] Address: [address] [place] [address] [place] [address] Performed By: #### 3 040-3, 59862-9 ####MARION LABORATORYCLIA [id number] [place] [id number] [place] ALT [Catalytic activity/Vol] U/L Low 7-38 [facility] Comment on above: Order Comment: Speci men Type: BLOOD SPECIMENOrdering Facility: [facility] Address: [address] [place] [address] [place] [address] Performed By: #### 3 040-3, 02161-0 ####VILLARREAL LABORATORYCLIA [id number] [place] [address] [place] Anion gap [Moles/Vol] 13 mmol/L Normal 8-15 [facility] [place] Comment on above: Order Comment: Speci men Type: BLOOD SPECIMENOrdering Facility: [facility] Address: [address] [facility] [place] [address] Performed By: #### 3 040-3, ####VILLARREAL LABORATORYCLIA [id number] [place] [address] [place] AST [Catalytic activity/Vol] 18 U/L Normal 13-35 [facility] Comment on above: Order Comment: Speci men Type: BLOOD SPECIMENOrdering Facility: [facility] Address: [address] [place] [address] [place] [address] Performed By: #### 3 040-3, ####VILLARREAL LABORATORYCLIA [id number] [place] [address] [place] Bilirubin [Mass/Vol] mg/dL Low 0.2-1.3 [facility] Comment on above: Order Comment: Speci men Type: BLOOD SPECIMENOrdering Facility: [facility] Address: [address] [place] [address] Performed By: #### 3 040-3, ####VILLARREAL LABORATORYCLIA [id number] [place] [address] [place] Calcium [Mass/Vol] 9.5 mg/dL Normal 8.5-10.2 [facility] Comment on above: Order Comment: Speci men Type: BLOOD SPECIMENOrdering Facility: [facility] Address: [address] [place] [address] [place] [address] Performed By: #### 3 040-3, 23244-5 ####VILLARREAL LABORATORYCLIA [id number] [place] [address] [place] Chloride [Moles/Vol] 92 mmol/L Low 98-107 [facility] Comment on above: Order Comment: Speci men Type: BLOOD SPECIMENOrdering Facility: [facility] Address: [address] [place] [address] [place] [address] Performed By: #### 3 040-3, 23645-2 ####VILLARREAL LABORATORYCLIA [id number] [place] [address] [place] CO2 [Moles/Vol] 24 mmol/L Normal 22-30 [facility] Comment on above: Order Comment: Fan halina Type: BLOOD SPECIMENOrdering Facility: [facility] Address: [address] [place] [address] Performed By: #### 3 040-3, 11724-2 ####VILLARREAL LABORATORYCLIA [id number] [place] [address] [place] Creatinine [Mass/Vol] 1.04 mg/dL High 0.58-0.96 [facility] [place] Comment on above: Order Comment: Kateleroy meade Type: BLOOD SPECIMENOrdering Facility: [facility] Address: [address] [place] [address] Performed By: #### 3 040-3, 12821-9 ####VILLARREAL LABORATORYCLIA [id number] [address] OF [facility] Creatinine and Glomerular filtration rate.predicted panel (S/P/Bld) 52 mL/min/1.73m??? Low >=60 [facility] Comment on above: Order Comment: Fan halina Type: BLOOD SPECIMENOrdering Facility: [facility] Address: [address] [place] [address] Result Comment: Hilda mated Glomerular Filtration Rate [...] actual GFR. Performed By: #### 3 040-3, 35741-4 ####VILLARREAL LABORATORYCLIA [id number] [place] [address] [place] Glucose [Mass/Vol] 279 mg/dL High 74-99 [facility] Comment on above: Order Comment: Fan [facility] Type: BLOOD SPECIMENOrdering Facility: [facility] Address: [address] [place] [address] Result Comment: The [place] [employer] (ADA) provides guidance for cutoff [...] Standards of Medical Care in Diabetes 2016, [place] [employer]. Diabetes Care. 2016.39(Suppl 1). Performed By: #### 3 040-3, ####VILLARREAL LABORATORYCLIA [id number] [place] [address] [place] Potassium [Moles/Vol] 4.4 mmol/L Normal 3.7-5.1 [facility] [place] Comment on above: Order Comment: Fan meade Type: BLOOD SPECIMENOrdering Facility: [facility] Address: [address] [place] [address] Performed By: #### 3 -, ####VILLARREAL LABORATORYCLIA [id number] [place] [address] [place] Protein [Mass/Vol] 5.8 g/dL Low 6.3-8.0 [facility] Comment on above: Order Comment: Fan meade Type: BLOOD SPECIMENOrdering Facility: [facility] Address: [address] [place] [address] Performed By: #### 3 040-3, ####VILLARREAL LABORATORYCLIA [id number] [place] [address] [place] Sodium [Moles/Vol] 129 mmol/L Low 136-144 [facility] Comment on above: Order Comment: Katei halina Type: BLOOD SPECIMENOrdering Facility: [facility] Address: [address] [place] [address] Performed By: #### 3 040-3, 65666-6 ####VILLARREAL LABORATORYCLIA [id number] [place] [address] [place] Urea nitrogen [Mass/Vol] 49 mg/dL High 7-21 [facility] Comment on above: Order Comment: Katei men Type: BLOOD SPECIMENOrdering Facility: [facility] Address: [address] [place] [address] Performed By: #### 3 040-3, 66569-8 ####VILLARREAL LABORATORYCLIA [id number] [place] [address] [place] [facility] Albumin [Mass/Vol] 2.5 g/dL Low 3.9-4.9 [facility] Comment on above: Order Comment: Speci men Type: BLOOD SPECIMENOrdering Facility: [facility] Address: [address] [place] [address] Performed By: #### 2 951-2, 44840-3, ####VILLARREAL LABORATORYCLIA [id number] [place] [address] [place] ALP [Catalytic activity/Vol] 122 U/L Normal 34-123 [facility] Comment on above: Order Comment: Speci men Type: BLOOD SPECIMENOrdering Facility: [facility] Address: [address] [place] [address] Performed By: #### 2 951-2, , ####VILLARREAL LABORATORYCLIA [id number] [place] [address] [place] ALT [Catalytic activity/Vol] U/L Low 7-38 [facility] Comment on above: Order Comment: Speci men Type: BLOOD SPECIMENOrdering Facility: [facility] Address: [address] [place] [address] Performed By: #### 2 951-2, , ####VILLARREAL LABORATORYCLIA [id number] [place] [id number] [place] Anion gap [Moles/Vol] 11 mmol/L Normal 8-15 [facility] [place] Comment on above: Order Comment: Speci men Type: BLOOD SPECIMENOrdering Facility: [facility] Address: [address] [place] [address] Performed By: #### 2 951-2, 91786-3, ####VILLARREAL LABORATORYCLIA [id number] [place] [address] [place] AST [Catalytic activity/Vol] 21 U/L Normal 13-35 [facility] Comment on above: Order Comment: Speci men Type: BLOOD SPECIMENOrdering Facility: [facility] Address: [address] [place] [place] [address] Performed By: #### 2 951-2, , ####VILLARREAL LABORATORYCLIA [id number] [place] [address] [place] Bilirubin [Mass/Vol] mg/dL Low 0.2-1.3 [facility] Comment on above: Order Comment: Speci men Type: BLOOD SPECIMENOrdering Facility: [facility] Address: [address] [facility] [place] [address] Performed By: #### 2 951-2, , ####VILLARREAL LABORATORYCLIA [id number] [place] [address] [place] Calcium [Mass/Vol] 9.8 mg/dL Normal 8.5-10.2 [facility] Comment on above: Order Comment: Speci men Type: BLOOD SPECIMENOrdering Facility: [facility] Address: [address] [place] [address] Performed By: #### 2 951-2, , ####VILLARREAL LABORATORYCLIA [id number] [place] [address] [place] Chloride [Moles/Vol] 94 mmol/L Low 98-107 [facility] Comment on above: Order Comment: Speci men Type: BLOOD SPECIMENOrdering Facility: [facility] Address: [address] [place] [address] Performed By: #### 2 951-2, , ####VILLARREAL LABORATORYCLIA [id number] [place] [id number] [place] CO2 [Moles/Vol] 26 mmol/L Normal 22-30 [facility] Comment on above: Order Comment: Speci men Type: BLOOD SPECIMENOrdering Facility: [facility] Address: [address] [facility] [place] [address] Performed By: #### 2 951-2, , ####MARION LABORATORYCLIA [id number] [place] [address] [place] Creatinine [Mass/Vol] 0.89 mg/dL Normal 0.58-0.96 [facility] [place] Comment on above: Order Comment: Fan meade Type: BLOOD SPECIMENOrdering Facility: [facility] Address: [address] [place] [address] Performed By: #### 2 951-2, , ####MARION LABORATORYCLIA [id number] [place] [address] [place] Creatinine and Glomerular filtration rate.predicted panel (S/P/Bld) 62 mL/min/1.73m??? Normal >=60 [facility] Comment on above: Order Comment: Fan meade Type: BLOOD SPECIMENOrdering Facility: [facility] Address: [address] [place] [address] Result Comment: Hilda mated Glomerular Filtration Rate [...] GFR. Performed By: #### 2 951-2, , ####MARION LABORATORYCLIA [id number] [place] [address] [place] Glucose [Mass/Vol] 238 mg/dL High 74-99 [facility] Comment on above: Order Comment: Fan meade Type: BLOOD SPECIMENOrdering Facility: [facility] Address: [address] [place] [address] Result Comment: The [place] Diabetes [employer] (ADA) provides guidance for cutoff [...] Standards of Medical Care in Diabetes 2016, [place] [employer]. Diabetes Care. 2016.39(Suppl 1). Performed By: #### 2 951-2, , ####MARION LABORATORYCLIA [id number] [place] [address] [place] Potassium [Moles/Vol] 5.2 mmol/L High 3.7-5.1 [facility] [place] Comment on above: Order Comment: Fan meade Type: BLOOD SPECIMENOrdering Facility: [facility] Address: [address] [place] [address] Performed By: #### 2 951-2, , ####VILLARREAL LABORATORYCLIA [id number] [place] [address] [place] Protein [Mass/Vol] 6.1 g/dL Low 6.3-8.0 [facility] Comment on above: Order Comment: Fan meade Type: BLOOD SPECIMENOrdering Facility: [facility] Address: [address] [place] [address] Performed By: #### 2 951-2, , ####MARION LABORATORYCLIA [id number] [address] STATES OF [facility] Urea nitrogen [Mass/Vol] 41 mg/dL High 7-21 [facility] Comment on above: Order Comment: Katei halina Type: BLOOD SPECIMENOrdering Facility: [facility] Address: [address] [place] [address] Performed By: #### 2 951-2, , ####VILLARREAL LABORATORYCLIA [id number] [place] [address] [place] ECG COMPLETEon 12-05-2024 ECG COMPLETE Normal [facility] Lipase SerPl-cCncon 12-05-19 25 Lipase [Catalytic activity/Vol] 31 U/L Normal 16-61 [facility] Comment on above: Order Comment: Katei men Type: BLOOD SPECIMENOrdering Facility: [facility] Address: [address] [place] [address] Performed By: #### 3 040-3, 39675-8 ####VILLARREAL LABORATORYCLIA [id number] [place] [address] [place] Magnesium SerPl-mCncon 12-05 Magnesium [Mass/Vol] 2.0 mg/dL Normal 1.7-2.3 [facility] Comment on above: Order Comment: Speci men Type: BLOOD SPECIMENOrdering Facility: [facility] Address: [address] [place] [address] Performed By: #### 2 951-2, 07380-5, 51950-2 ####VILLARREAL LABORATORYCLIA [id number] [place] [address] [place] SEPSIS LACTATEon 12-05-2024 Lactate [Moles/Vol] 1.5 mmol/L Normal 0.5-2.0 [facility] Comment on above: Order Comment: Speci men Type: BLOOD SPECIMENOrdering Facility: [facility] Address: [address] [place] [address] Performed By: #### S LACT ####VILLARREAL LABORATORYCLIA [id number] [place] [address] [place] Sodium SerPl-sCncon 12-05-19 Sodium [Moles/Vol] 127 mmol/L Low 136-144 [facility] Comment on above: Order Comment: Speci men Type: BLOOD SPECIMENOrdering Facility: [facility] Address: [address] [place] [address] Performed By: #### 2 951-2 ####VILLARREAL LABORATORYCLIA [id number] [place] [address] [place] [facility] Sodium [Moles/Vol] 129 mmol/L Low 136-144 [facility] Comment on above: Order Comment: Speci men Type: BLOOD SPECIMENOrdering Facility: [facility] Address: [address] [place] [address] Performed By: #### 2 951-2 ####VILLARREAL LABORATORYCLIA [id number] [place] [address] [place] Sodium [Moles/Vol] 131 mmol/L Low 136-144 [facility] Comment on above: Order Comment: Speci men Type: BLOOD SPECIMENOrdering Facility: [facility] Address: [address] [place] [address] Performed By: #### 2 951-2, 30932-1, 67317-0 ####VILLARREAL LABORATORYCLIA [id number] [address] [place] THERAPY NTon 12-05-2024 THERAPY NT Normal [facility] XR ABDOMEN 1V SUPINEon 12-05 XR ABDOMEN 1V SUPINE Normal [facility] CASE MANAGEMon 12-04-2024 CASE MANAGEM [facility] CBC W Auto Differential pane l (Bld)on 12-04-2024 Basophils (Bld) [#/Vol] 0.05 10*3/uL Normal <0.11 [facility] Comment on above: Order Comment: Speci men Type: BLOOD SPECIMENOrdering Facility: [facility] Address: [address] [place] [address] Performed By: #### 5 7021-8 ####VILLARREAL LABORATORYCLIA [id number] [place] [address] [place] Basophils/100 WBC (Bld) 0.2 % Normal [facility] Comment on above: Order Comment: Speci men Type: BLOOD SPECIMENOrdering Facility: [facility] Address: [address] [place] [address] Performed By: #### 5 7021-8 ####VILLARREAL LABORATORYCLIA [id number] [place] [address] [place] Differential cell count method Nom (Bld) Auto Normal [facility] Comment on above: Order Comment: Speci men Type: BLOOD SPECIMENOrdering Facility: [facility] Address: [address] [place] [address] Performed By: #### 5 7021-8 ####VILLARREAL LABORATORYCLIA [id number] [place] [address] [place] Eosinophils (Bld) [#/Vol] 10*3/uL Normal <0.46 [facility] Comment on above: Order Comment: Speci men Type: BLOOD SPECIMENOrdering Facility: [facility] Address: [address] [place] [address] Performed By: #### 5 7021-8 ####VILLARREAL LABORATORYCLIA [id number] [address] [place] Eosinophils/100 WBC (Bld) 0.1 % Normal [facility] Comment on above: Order Comment: Speci men Type: BLOOD SPECIMENOrdering Facility: [facility] Address: [address] [place] [address] Performed By: #### 5 7021-8 ####VILLARREAL LABORATORYCLIA [id number] [address] [place] Erythrocyte distribution width (RBC) [Ratio] 15.8 % High 11.5-15.0 [facility] Comment on above: Order Comment: Speci men Type: BLOOD SPECIMENOrdering Facility: [facility] Address: [address] [place] [address] Performed By: #### 5 7021-8 ####VILLARREAL LABORATORYCLIA [id number] [address] [place] Hematocrit (Bld) [Volume fraction] 25.9 % Low 36.0-46.0 [facility] Comment on above: Order Comment: Speci men Type: BLOOD SPECIMENOrdering Facility: [facility] Address: [address] [place] [address] Performed By: #### 5 7021-8 ####VILLARREAL LABORATORYCLIA [id number] [place] [address] [place] Hemoglobin (Bld) [Mass/Vol] 8.5 g/dL Low 11.5-15.5 [facility] Comment on above: Order Comment: Speci men Type: BLOOD SPECIMENOrdering Facility: [facility] Address: [address] [place] [address] Performed By: #### 5 7021-8 ####VILLARREAL LABORATORYCLIA [id number] [address] [place] Immature granulocytes (Bld) [#/Vol] 0.27 10*3/uL High <0.10 [facility] Comment on above: Order Comment: Speci men Type: BLOOD SPECIMENOrdering Facility: [facility] Address: [address] [place] [address] Performed By: #### 5 7021-8 ####VILLARREAL LABORATORYCLIA [id number] [address] [place] Immature granulocytes/100 WBC (Bld) 1.3 % Normal [facility] Comment on above: Order Comment: Speci men Type: BLOOD SPECIMENOrdering Facility: [facility] Address: [address] [place] [address] Performed By: #### 5 7021-8 ####VILLARREAL LABORATORYCLIA [id number] [place] [address] [place] Lymphocytes (Bld) [#/Vol] 0.64 10*3/uL Low 1.00-4.00 [facility] Comment on above: Order Comment: Speci men Type: BLOOD SPECIMENOrdering Facility: [facility] Address: [address] [place] [address] Performed By: #### 5 7021-8 ####VILLARREAL LABORATORYCLIA [id number] [address] Lymphocytes/100 WBC (Bld) 3.1 % Normal [facility] Comment on above: Order Comment: Speci men Type: BLOOD SPECIMENOrdering Facility: [facility] Address: [address] [place] [address] Performed By: #### 5 7021-8 ####VILLARREAL LABORATORYCLIA [id number] [address] [place] MCH (RBC) [Entitic mass] 28.1 pg Normal 26.0-34.0 [facility] Comment on above: Order Comment: Speci men Type: BLOOD SPECIMENOrdering Facility: [facility] Address: [address] [place] [address] Performed By: #### 5 7021-8 ####VILLARREAL LABORATORYCLIA [id number] [address] [place] MCHC (RBC) [Mass/Vol] 32.8 g/dL Normal 30.5-36.0 [facility] [place] Comment on above: Order Comment: Speci men Type: BLOOD SPECIMENOrdering Facility: [facility] Address: [address] [place] [address] Performed By: #### 5 7021-8 ####VILLARREAL LABORATORYCLIA [id number] [place] [address] [place] MCV (RBC) [Entitic vol] 85.8 fL Normal 80.0-100.0 [facility] Comment on above: Order Comment: Speci men Type: BLOOD SPECIMENOrdering Facility: [facility] Address: [address] [place] [address] Performed By: #### 5 7021-8 ####VILLARREAL LABORATORYCLIA [id number] [place] [address] [place] Monocytes (Bld) [#/Vol] 1.09 10*3/uL High <0.87 [facility] Comment on above: Order Comment: Speci men Type: BLOOD SPECIMENOrdering Facility: [facility] Address: [address] [place] [address] Performed By: #### 5 7021-8 ####VILLARREAL LABORATORYCLIA [id number] [address] [place] Monocytes/100 WBC (Bld) 5.3 % Normal [facility] Comment on above: Order Comment: Speci men Type: BLOOD SPECIMENOrdering Facility: [facility] Address: [address] [place] [address] Performed By: #### 5 7021-8 ####VILLARREAL LABORATORYCLIA [id number] [place] [address] [place] Neutrophils (Bld) [#/Vol] 18.59 10*3/uL High 1.45-7.50 [facility] Comment on above: Order Comment: Speci men Type: BLOOD SPECIMENOrdering Facility: [facility] Address: [address] [place] [address] Performed By: #### 5 7021-8 ####VILLARREAL LABORATORYCLIA [id number] [place] [address] [place] Neutrophils/100 WBC (Bld) 90.0 % Normal [facility] Comment on above: Order Comment: Speci men Type: BLOOD SPECIMENOrdering Facility: [facility] Address: [address] [place] [address] Performed By: #### 5 7021-8 ####VILLARREAL LABORATORYCLIA [id number] [place] [address] [place] Nucleated RBC (Bld) [#/Vol] 10*3/uL Normal <0.01 [facility] Comment on above: Order Comment: Speci men Type: BLOOD SPECIMENOrdering Facility: [facility] Address: [address] [place] [address] Performed By: #### 5 7021-8 ####VILLARREAL LABORATORYCLIA [id number] [place] [address] [place] Nucleated RBC/100 WBC (Bld) [Ratio] 0.0 /100 WBC Normal [facility] Comment on above: Order Comment: Speci men Type: BLOOD SPECIMENOrdering Facility: [facility] Address: [address] [place] [address] Performed By: #### 5 7021-8 ####VILLARREAL LABORATORYCLIA [id number] [place] [address] [place] Platelet mean volume (Bld) [Entitic vol] 8.7 fL Low 9.0-12.7 [facility] Comment on above: Order Comment: Speci men Type: BLOOD SPECIMENOrdering Facility: [facility] Address: [address] [place] [address] Performed By: #### 5 7021-8 ####[facility]ARRE[facility] LABORATORYCLIA [id number] [place] [address] [place] Platelets (Bld) [#/Vol] 518 10*3/uL High 150-400 [facility] Comment on above: Order Comment: Speci men Type: BLOOD SPECIMENOrdering Facility: [facility] Address: [address] [place] [address] Performed By: #### 5 7021-8 ####VILLARREAL LABORATORYCLIA [id number] [place] [address] [place] RBC (Bld) [#/Vol] 3.02 10*6/uL Low 3.90-5.20 [facility] Comment on above: Order Comment: Speci men Type: BLOOD SPECIMENOrdering Facility: [facility] Address: [address] [place] [address] Performed By: #### 5 7021-8 ####MAR[facility] LABORATORYCLIA [id number] [place] [address] [place] [facility] WBC (Bld) [#/Vol] 20.66 10*3/uL High 3.70-11.00 [facility] Comment on above: Order Comment: Speci men Type: BLOOD SPECIMENOrdering Facility: [facility] Address: [address] [place] [address] Performed By: #### 5 7021-8 ####MAR[facility] LABORATORYCLIA [id number] [address] STATES [facility] CBC W Ordered Manual Differe ntial panel (Bld)on 12-04-2024 Basophils (Bld) [#/Vol] 0.03 10*3/uL Normal <0.11 [facility] Comment on above: Order Comment: Speci men Type: BLOOD SPECIMENOrdering Facility: [facility] Address: [address] [place] [address] Performed By: #### S TFREV ####[facility] LABCLIA [id number] [place] [address] [place]#### 48648-6 ####VILLARREAL LABORATORYCLIA [id number] [address] Basophils/100 WBC (Bld) 0.2 % Normal [facility] Comment on above: Order Comment: Speci men Type: BLOOD SPECIMENOrdering Facility: [facility] Address: [address] [place] [address] Performed By: #### S TFREV ####[facility] LABCLIA [id number] [place] [address] [place]#### 32430-5 ####VILLARRE[facility] LABORATORYCLIA [id number] [place] [address] [place] Differential cell count method Nom (Bld) Auto Normal [facility] Comment on above: Order Comment: Speci men Type: BLOOD SPECIMENOrdering Facility: [facility] Address: [address] [place] [address] Performed By: #### S TFREV ####[facility] LABCLIA [id number] [place] [address] [place]#### 80793-3 ####MAR[facility] LABORATORYCLIA [id number] [place] [address] [place] Eosinophils (Bld) [#/Vol] 10*3/uL Normal <0.46 [facility] Comment on above: Order Comment: Speci men Type: BLOOD SPECIMENOrdering Facility: [facility] Address: [address] [place] [address] Performed By: #### S TFREV ####[facility] LABCLIA [id number] [place] [address] [place]#### 90983-4 ####[facility] LABORATORYCLIA [id number] [place] [address] [place] Eosinophils/100 WBC (Bld) 0.1 % Normal [facility] Comment on above: Order Comment: Speci men Type: BLOOD SPECIMENOrdering Facility: [facility] Address: [address] [place] [address] Performed By: #### S TFREV ####[facility] LABCLIA [id number] [place] [address] [place]#### 30133-6 ####[facility] LABORATORYCLIA [id number] [place] [address] [place] Erythrocyte distribution width (RBC) [Ratio] 15.9 % High 11.5-15.0 [facility] Comment on above: Order Comment: Speci men Type: BLOOD SPECIMENOrdering Facility: [facility] Address: [address] [place] [address] Performed By: #### S TFREV ####[facility] LABCLIA [id number] [place] [address] [place]#### 66930-0 ####VILLARRE[facility] LABORATORYCLIA [id number] [place] [address] [place] Hematocrit (Bld) [Volume fraction] 26.2 % Low 36.0-46.0 [facility] Comment on above: Order Comment: Speci men Type: BLOOD SPECIMENOrdering Facility: [facility] Address: [address] [place] [address] Performed By: #### S TFREV ####[facility] LABCLIA [id number] [place] [address] [place]#### 76035-5 ####VILLARRE[facility] LABORATORYCLIA [id number] [address] [place] Hemoglobin (Bld) [Mass/Vol] 8.7 g/dL Low 11.5-15.5 [facility] Comment on above: Order Comment: Speci men Type: BLOOD SPECIMENOrdering Facility: [facility] Address: [address] [place] [address] Performed By: #### S TFREV ####[facility] LABCLIA [id number] [place] [address] [place]#### 85657-8 ####VILLAR[facility] LABORATORYCLIA [id number] [address] Immature granulocytes (Bld) [#/Vol] 0.20 10*3/uL High <0.10 [facility] Comment on above: Order Comment: Speci men Type: BLOOD SPECIMENOrdering Facility: [facility] Address: [address] [place] [address] Performed By: #### S TFREV ####[facility] LABCLIA [id number] [place] [address] [place]#### 51113-8 ####VILLAR[facility] LABORATORYCLIA [id number] [address] [place] Immature granulocytes/100 WBC (Bld) 1.3 % Normal [facility] Comment on above: Order Comment: Speci men Type: BLOOD SPECIMENOrdering Facility: [facility] Address: [address] [place] [address] Performed By: #### S TFREV ####[facility] LABCLIA [id number] [place] [address] [place]#### 20971-0 ####VILLAR[facility] LABORATORYCLIA [id number] [place] [address] [place] Lymphocytes (Bld) [#/Vol] 0.56 10*3/uL Low 1.00-4.00 [facility] Comment on above: Order Comment: Speci men Type: BLOOD SPECIMENOrdering Facility: [facility] Address: [address] [place] [address] Performed By: #### S TFREV ####[facility] LABCLIA [id number] [place] [address] [place]#### 10349-3 ####[facility] LABORATORYCLIA [id number] [address] [place] Lymphocytes/100 WBC (Bld) 3.5 % Normal [facility] Comment on above: Order Comment: Speci men Type: BLOOD SPECIMENOrdering Facility: [facility] Address: [address] [place] [address] Performed By: #### S TFREV ####[facility] LABCLIA [id number] [place] [address] [place]#### 17489-5 ####V[facility] LABORATORYCLIA [id number] [place] [address] [place] MCH (RBC) [Entitic mass] 28.3 pg Normal 26.0-34.0 [facility] Comment on above: Order Comment: Speci men Type: BLOOD SPECIMENOrdering Facility: [facility] Address: [address] [place] [address] Performed By: #### S TFREV ####[facility] LABCLIA [id number] [place] [address] [place]#### 02392-3 ####VILLAR[facility] LABORATORYCLIA [id number] [place] [address] [place] MCHC (RBC) [Mass/Vol] 33.2 g/dL Normal 30.5-36.0 [facility] Comment on above: Order Comment: Speci men Type: BLOOD SPECIMENOrdering Facility: [facility] Address: [address] [place] [address] Performed By: #### S TFREV ####[facility] LABCLIA [id number] [place] [address] [place]#### 00101-7 ####VILL[facility] LABORATORYCLIA [id number] [place] [address] [place] MCV (RBC) [Entitic vol] 85.3 fL Normal 80.0-100.0 [facility] Comment on above: Order Comment: Speci men Type: BLOOD SPECIMENOrdering Facility: [facility] Address: [address] [place] [address] Performed By: #### S TFREV ####[facility] LABCLIA [id number] [place] [address] [place]#### 71898-0 ####[facility] LABORATORYCLIA [id number] [address] [place] Monocytes (Bld) [#/Vol] 0.74 10*3/uL Normal <0.87 [facility] Comment on above: Order Comment: Speci men Type: BLOOD SPECIMENOrdering Facility: [facility] Address: [address] [place] [address] Performed By: #### S TFREV ####[facility] LABCLIA [id number] [place] [address] [place]#### 10484-2 ####V[facility] LABORATORYCLIA [id number] [address] Monocytes/100 WBC (Bld) 4.6 % Normal [facility] Comment on above: Order Comment: Speci men Type: BLOOD SPECIMENOrdering Facility: [facility] Address: [address] [place] [address] Performed By: #### S TFREV ####[facility] LABCLIA [id number] [place] [address] [place]#### 09842-6 ####[facility] LABORATORYCLIA [id number] [address] [place] Neutrophils (Bld) [#/Vol] 14.38 10*3/uL High 1.45-7.50 [facility] Comment on above: Order Comment: Speci men Type: BLOOD SPECIMENOrdering Facility: [facility] Address: [address] [place] [address] Performed By: #### S TFREV ####[facility] LABCLIA [id number] [place] [address] [place]#### 38739-6 ####[facility] LABORATORYCLIA [id number] [address] [place] [facility] Neutrophils/100 WBC (Bld) 90.3 % Normal [facility] Comment on above: Order Comment: Speci men Type: BLOOD SPECIMENOrdering Facility: [facility] Address: [address] [place] [address] Performed By: #### S TFREV ####[facility] LABCLIA [id number] [place] [address] [place]#### 47865-9 ####[facility] LABORATORYCLIA [id number] [place] [address] [place] Nucleated RBC (Bld) [#/Vol] 10*3/uL Normal <0.01 [facility] Comment on above: Order Comment: Speci men Type: BLOOD SPECIMENOrdering Facility: [facility] Address: [address] [place] [address] Performed By: #### S TFREV ####[facility] LABCLIA [id number] [place] [address] [place]#### 63041-6 ####[facility] LABORATORYCLIA [id number] [place] [address] [place] Nucleated RBC/100 WBC (Bld) [Ratio] 0.0 /100 WBC Normal [facility] Comment on above: Order Comment: Speci men Type: BLOOD SPECIMENOrdering Facility: [facility] Address: [address] [place] [address] Performed By: #### S TFREV ####[facility] LABCLIA [id number] [place] [address] [place]#### 92293-9 ####[facility] LABORATORYCLIA [id number] [place] [address] [place] Platelet mean volume (Bld) [Entitic vol] 8.8 fL Low 9.0-12.7 [facility] Comment on above: Order Comment: Speci men Type: BLOOD SPECIMENOrdering Facility: [facility] Address: [address] [place] [address] Performed By: #### S TFREV ####[facility] LABCLIA [id number] [place] [address] [place]#### 90226-2 ####[facility] LABORATORYCLIA [id number] [place] [address] [place] Platelets (Bld) [#/Vol] 512 10*3/uL High 150-400 [facility] Comment on above: Order Comment: Speci men Type: BLOOD SPECIMENOrdering Facility: [facility] Address: [address] [place] [address] Performed By: #### S TFREV ####[facility] LABCLIA [id number] [place] [id number] [place]#### 06778-2 ####VILLAR[facility] LABORATORYCLIA [id number] [place] [address] [place] RBC (Bld) [#/Vol] 3.07 10*6/uL Low 3.90-5.20 [facility] Comment on above: Order Comment: Speci men Type: BLOOD SPECIMENOrdering Facility: [facility] Address: [address] [place] [address] Performed By: #### S TFREV ####[facility] LABCLIA [id number] [place] [address] [place]#### 08869-3 ####[facility] LABORATORYCLIA [id number] [place] [address] [place] WBC (Bld) [#/Vol] 15.92 10*3/uL High 3.70-11.00 [facility] Comment on above: Order Comment: Speci men Type: BLOOD SPECIMENOrdering Facility: [facility] Address: [address] [place] [address] Performed By: #### S TFREV ####[facility] LABCLIA [id number] [place] [address] [place]#### 89122-2 ####VILL[facility] LABORATORYCLIA [id number] [place] [id number] [place] CONSULTon 12-04-2024 CONSULT Normal [facility] CONSULT PROGon 12-04-2024 CONSULT PROG Normal [facility] CONSULT PROG Normal [facility] CONSULT PROG Normal [facility] Comprehensive metabolic 2000 panelon 12-04-2024 Albumin [Mass/Vol] 2.5 g/dL Low 3.9-4.9 [facility] Comment on above: Order Comment: Speci men Type: BLOOD SPECIMENOrdering Facility: [facility] Address: [address] [place] [address] Performed By: #### 2 4323-8, 59569-4, 2951-2 ####VILL[facility] LABORATORYCLIA [id number] [place] [address] [place] ALP [Catalytic activity/Vol] 112 U/L Normal 34-123 [facility] Comment on above: Order Comment: Speci men Type: BLOOD SPECIMENOrdering Facility: [facility] Address: [address] [place] [address] Performed By: #### 2 4323-8, 59699-4, 2950-2 ####[facility] LABORATORYCLIA [id number] [place] [address] [place] [facility] ALT [Catalytic activity/Vol] U/L Low 7-38 [facility] Comment on above: Order Comment: Speci men Type: BLOOD SPECIMENOrdering Facility: [facility] Address: [address] [place] [address] Performed By: #### 2 4323-8, 14770-6, 2950-2 ####[facility] LABORATORYCLIA [id number] [address] Anion gap [Moles/Vol] 10 mmol/L Normal 8-15 [facility] Comment on above: Order Comment: Speci men Type: BLOOD SPECIMENOrdering Facility: [facility] Address: [address] [place] [address] Performed By: #### 2 4323-8, , 2950-2 ####[facility] LABORATORYCLIA [id number] [address] OF [facility] AST [Catalytic activity/Vol] 31 U/L Normal 13-35 [facility] Comment on above: Order Comment: Speci men Type: BLOOD SPECIMENOrdering Facility: [facility] Address: [address] [place] [address] Performed By: #### 2 4323-8, 98637-5, 2950-2 ####[facility] LABORATORYCLIA [id number] [address] Bilirubin [Mass/Vol] mg/dL Low 0.2-1.3 [facility] Comment on above: Order Comment: Speci men Type: BLOOD SPECIMENOrdering Facility: [facility] Address: [address] [place] [address] Performed By: #### 2 4323-8, , 2950-2 ####[facility] LABORATORYCLIA [id number] [place] [address] [place] Calcium [Mass/Vol] 9.7 mg/dL Normal 8.5-10.2 [facility] Comment on above: Order Comment: Speci men Type: BLOOD SPECIMENOrdering Facility: [facility] Address: [facility] [place] [address] Performed By: #### 2 4323-8, , 2950-12 ####[facility] LABORATORYCLIA [id number] [place] [address] [place] Chloride [Moles/Vol] 95 mmol/L Low 98-107 [facility] Comment on above: Order Comment: Speci men Type: BLOOD SPECIMENOrdering Facility: [facility] Address: [facility] [place] [address] Performed By: #### 2 4323-8, , 2950-12 ####[facility] LABORATORYCLIA [id number] [place] [address] [place] CO2 [Moles/Vol] 27 mmol/L Normal 22-30 [facility] Comment on above: Order Comment: Speci men Type: BLOOD SPECIMENOrdering Facility: [facility] Address: [facility] [place] [address] Performed By: #### 2 4323-8, , 2 ####[facility] LABORATORYCLIA [id number] [place] [address] [place] Creatinine [Mass/Vol] 0.84 mg/dL Normal 0.58-0.96 [facility] Comment on above: Order Comment: Speci men Type: BLOOD SPECIMENOrdering Facility: [facility] Address: [facility] [place] [address] Performed By: #### 2 4323-8, , 2950-2 ####V[facility] LABORATORYCLIA [id number] [place] [address] [place] [facility] [place] Creatinine and Glomerular filtration rate.predicted panel (S/P/Bld) 67 mL/min/1.73m??? Normal >=60 [facility] Comment on above: Order Comment: Fan meade Type: BLOOD SPECIMENOrdering Facility: [facility] Address: [address] [place] [address] Result Comment: Hilda mated Glomerular Filtration Rate [...] actual GFR. Performed By: #### 2 4323-8, 63227-8, 295-2 ####VILL[facility] LABORATORYCLIA [id number] [place] [address] [place] Glucose [Mass/Vol] 60 mg/dL Low 74-99 [facility] Comment on above: Order Comment: Fan meade Type: BLOOD SPECIMENOrdering Facility: [facility] Address: [address] [place] [address] Result Comment: The [place] [employer] (ADA) provides guidance for cutoff [...] Standards of Medical Care in Diabetes 2016, [place] [employer]. Diabetes Care. 2016.39(Suppl 1). Performed By: #### 2 4323-8, 78332-5, 295-2 ####V[facility] LABORATORYCLIA [id number] [place] [address] [place] Potassium [Moles/Vol] 4.6 mmol/L Normal 3.7-5.1 [facility] [place] Comment on above: Order Comment: Fan meade Type: BLOOD SPECIMENOrdering Facility: [facility] Address: [address] [place], [place] [address] [id number] Performed By: #### 2 4323-8, 24606-8, 295-2 ####VILL[facility] LABORATORYCLIA [id number] [place] [address] [place] Protein [Mass/Vol] 5.9 g/dL Low 6.3-8.0 [facility] Comment on above: Order Comment: Speci men Type: BLOOD SPECIMENOrdering Facility: [facility] Address: [address] [place] [address] Performed By: #### 2 4323-8, 75989-4, 295-2 ####VILL[facility] LABORATORYCLIA [id number] [place] [address] [place] Urea nitrogen [Mass/Vol] 37 mg/dL High 06-03 [facility] Comment on above: Order Comment: Speci men Type: BLOOD SPECIMENOrdering Facility: [facility] Address: [address] [place] [address] Performed By: #### 2 4323-8, , 2952 ####VILLARREAL LABORATORYCLIA [id number] [place] [id number] [place] Creatinine Unsp time (U) [Ma ss/Vol]on 12-04-2024 Creatinine (U) [Mass/Vol] 41.7 mg/dL Normal 20.0-300.0 [facility] Comment on above: Order Comment: Speci men Type: URINE SPECIMENOrdering Facility: [facility] Address: [address] [place] [address] Performed By: #### 3 5678-2, 58038-5, 51610-9 ####[facility] LABCLIA [id number] [facility] [id number] [id number] [place] Magnesium SerPl-mCncon 12-04 Magnesium [Mass/Vol] 2.0 mg/dL Normal 1.7-2.3 [facility] Comment on above: Order Comment: Speci men Type: BLOOD SPECIMENOrdering Facility: [facility] Address: [address] [place] [address] Performed By: #### 2 4323-8, 25036-9, 2951-2 ####[facility] LABORATORYCLIA [id number] [place] [address] [place] NUTRITIONon 12-04-2024 NUTRITION Normal [facility] Osmolality Uron 12-04-2024 Osmolality (U) [Osmolality] 412 mosm/kg Normal 50-1200 [facility] Comment on above: Order Comment: Speci men Type: URINE SPECIMENOrdering Facility: [facility] Address: [address] [place] [address] Performed By: #### 2 695-5 ####[facility] LABCLIA [id number] [place] [address] [place] PATHOLOGIST INTERPRETATION C BC/DIFFon 12-04-2024 Emt/Dispatcher review Mckay (Unsp spec) [Interp] No review performed. [facility] Comment on above: Order Comment: Speci men Type: BLOOD SPECIMENOrdering Facility: [facility] Address: [address] [place] [address] Performed By: #### S TFREV ####[facility] LABCLIA [id number] [place] [address] [place]#### 44201-7 ####[facility] LABORATORYCLIA [id number] [place] [address] [place] STAFF REVIEW, CBCDIF [facility] Comment on above: Order Comment: Speci men Type: BLOOD SPECIMENOrdering Facility: [facility] Address: [address] [place] [address] Performed By: #### S TFREV ####[facility] LABCLIA [id number] [place] [address] [place]#### 59662-6 ####[facility] LABORATORYCLIA [id number] [place] [address] [place] PT panel Coag (PPP)on 2024 INR Coag (PPP) [Relative time] 1.0 {INR} Normal 0.9-1.3 [facility] Comment on above: Order Comment: Speci men Type: BLOOD SPECIMENOrdering Facility: [facility] Address: [address] [place] [address] Result Comment: Kendra min K Antagonist (VKA) Therapeutic Range: INR 2 to 3 (Target INR of 2.5)Note: For patients treated with VKA drugs, such as warfarin, the [place] 2012 Guideline recommends [...] al. Chest 2012, 141:7S-47SNishimura RA, et al. [facility] 2017, 70: 252-289 Performed By: #### 3 4528-0 ####[facility] LABORATORYCLIA [id number] [place] [address] [place] PT Coag (PPP) [Time] 10.6 s Normal 9.7-13.0 [facility] Comment on above: Order Comment: Speci men Type: BLOOD SPECIMENOrdering Facility: [facility] Address: [address] [place] [address] Performed By: #### 3 4528-0 ####[facility] LABORATORYCLIA [id number] [place] [address] [place] Potassium ?Tm Ur-sCncon 11-15 Potassium Unsp time (U) [Moles/Vol] 41.7 mmol/L Normal 10.0-160.0 [facility] Comment on above: Order Comment: Speci men Type: URINE SPECIMENOrdering Facility: [facility] Address: [address] [place] [address] Performed By: #### 3 5678-2, 06636-9, 59323-2 ####[facility] LABCLIA [id number] [place] [id number] [place] Sodium ?Tm Ur-sCncon 025 Sodium Unsp time (U) [Moles/Vol] <20 Normal 14-216 [facility] Comment on above: Order Comment: Speci men Type: URINE SPECIMENOrdering Facility: [facility] Address: [address] [place] [address] Performed By: #### 3 5678-2, 10450-3, 82213-8 ####[facility] LABCLIA [id number] [place] [address] [place] Sodium SerPl-sCncon 12-04-19 25 Sodium [Moles/Vol] 128 mmol/L Low 136-144 [facility] Comment on above: Order Comment: Speci men Type: BLOOD SPECIMENOrdering Facility: [facility] Address: [address] [place] [address] Performed By: #### 2 951-2 ####VILLAR[facility] LABORATORYCLIA [id number] [place] [address] [place] Sodium [Moles/Vol] 133 mmol/L Low 136-144 [facility] Comment on above: Order Comment: Speci men Type: BLOOD SPECIMENOrdering Facility: [facility] Address: [address] [place] [address] Performed By: #### 2 951-2 ####VILLAR[facility] LABORATORYCLIA [id number] [place] [address] [place] Sodium [Moles/Vol] 130 mmol/L Low 136-144 [facility] Comment on above: Order Comment: Speci men Type: BLOOD SPECIMENOrdering Facility: [facility] Address: [address] [place] [address] Performed By: #### 2 951-2 ####VILL[facility] LABORATORYCLIA [id number] [place] [address] [place] Sodium [Moles/Vol] 132 mmol/L Low 136-144 [facility] Comment on above: Order Comment: Speci men Type: BLOOD SPECIMENOrdering Facility: [facility] Address: [address] [place] [address] Performed By: #### 2 4323-8, 62240-8, 2951-2 ####VILLARRE[facility] LABORATORYCLIA [id number] [place] [address] [place] Sodium [Moles/Vol] 132 mmol/L Low 136-144 [facility] System Comment on above: Order Comment: Speci men Type: BLOOD SPECIMENOrdering Facility: [facility] Address: [address] [place] [address] Performed By: #### 2 951-2 ####MAR[facility] LABORATORYCLIA [id number] [place] [address] [place] THERAPY NTon 12-04-2024 THERAPY NT Normal [facility] ALLIED HEALTHon 12-03-2024 [facility] HEALTH [facility] RUBEN BY IFA SCREENon 12-03-19 Nuclear Ab pattern (S) [Interp] Nuclear homogeneous Normal [facility] Comment on above: Order Comment: Speci men Type: BLOOD SPECIMENOrdering Facility: [facility] Address: [address] [place] [address] Performed By: #### A NAIFS ####[facility] LABCLIA [id number] [place] [address] [place] Nuclear Ab Ql (S) Positive Abnormal Negative [facility] Comment on above: Order Comment: Speci halina Type: BLOOD SPECIMENOrdering Facility: [facility] Address: [address] [place] [address] Result Comment: Anti -nuclear antibody test is used as an aid in diagnosis of systemic autoimmune diseases. Where positive and clinically warranted, follow-up using disease-specific testing is recommended. Low positive titers are not uncommon with advanced age, certain chronic infections, and malignancies among others.Test methodology: Indirect fluorescence immunoassay (IFA) using HEp-2 cells.1:160 Performed By: #### A NAIFS ####[facility] LABCLIA [id number] [place] [id number] [place] CASE MANAGEMon 01-20-2025 [facility] CBC W Auto Differential pane l (Bld)on 12-03-2024 Basophils (Bld) [#/Vol] 0.06 10*3/uL Normal <0.11 [facility] Comment on above: Order Comment: Speci men Type: BLOOD SPECIMENOrdering Facility: [facility] Address: [address] [place] [address] Performed By: #### 5 7021-8 ####[facility] LABORATORYCLIA [id number] [place] [address] [place] Basophils/100 WBC (Bld) 0.3 % Normal [facility] Comment on above: Order Comment: Speci men Type: BLOOD SPECIMENOrdering Facility: [facility] Address: [address] [place] [address] Performed By: #### 5 7021-8 ####V[facility]AR[facility] LABORATORYCLIA [id number] [place] [address] [place] Differential cell count method Nom (Bld) Auto Normal [facility] Comment on above: Order Comment: Speci men Type: BLOOD SPECIMENOrdering Facility: [facility] Address: [address] [place] [address] Performed By: #### 5 7021-8 ####VILLARRE[facility] LABORATORYCLIA [id number] [place] [address] [place] Eosinophils (Bld) [#/Vol] 0.18 10*3/uL Normal <0.46 [facility] Comment on above: Order Comment: Speci men Type: BLOOD SPECIMENOrdering Facility: [facility] Address: [address] [place] [address] Performed By: #### 5 7021-8 ####VILLARREAL LABORATORYCLIA [id number] [place] [id number] [place] Eosinophils/100 WBC (Bld) 0.9 % Normal [facility] Comment on above: Order Comment: Speci men Type: BLOOD SPECIMENOrdering Facility: [facility] Address: [address] [place] [address] Performed By: #### 5 7021-8 ####VILLAR[facility] LABORATORYCLIA [id number] [place] [address] [place] Erythrocyte distribution width (RBC) [Ratio] 15.6 % High 11.5-15.0 [facility] Comment on above: Order Comment: Speci men Type: BLOOD SPECIMENOrdering Facility: [facility] Address: [address] [place] [address] Performed By: #### 5 7021-8 ####VILLARREAL LABORATORYCLIA [id number] [place] [address] [place] Hematocrit (Bld) [Volume fraction] 26.0 % Low 36.0-46.0 [facility] Comment on above: Order Comment: Speci men Type: BLOOD SPECIMENOrdering Facility: [facility] Address: [address] [place] [address] Performed By: #### 5 7021-8 ####VILLARREAL LABORATORYCLIA [id number] [place] [address] [place] Hemoglobin (Bld) [Mass/Vol] 8.5 g/dL Low 11.5-15.5 [facility] Comment on above: Order Comment: Speci men Type: BLOOD SPECIMENOrdering Facility: [facility] Address: [address] [place] [address] Performed By: #### 5 7021-8 ####VILLARREAL LABORATORYCLIA [id number] [place] [address] [place] Immature granulocytes (Bld) [#/Vol] 0.29 10*3/uL High <0.10 [facility] Comment on above: Order Comment: Speci men Type: BLOOD SPECIMENOrdering Facility: [facility] Address: [address] [place] [address] Performed By: #### 5 7021-8 ####VILLARRE[facility] LABORATORYCLIA [id number] [address] [place] Immature granulocytes/100 WBC (Bld) 1.5 % Normal [facility] Comment on above: Order Comment: Speci men Type: BLOOD SPECIMENOrdering Facility: [facility] Address: [address] [place] [address] Performed By: #### 5 7021-8 ####V[facility]AR[facility] LABORATORYCLIA [id number] [address] Lymphocytes (Bld) [#/Vol] 0.75 10*3/uL Low 1.00-4.00 [facility] Comment on above: Order Comment: Speci men Type: BLOOD SPECIMENOrdering Facility: [facility] Address: [address] [place] [address] Performed By: #### 5 7021-8 ####VILLARRE[facility] LABORATORYCLIA [id number] [address] Lymphocytes/100 WBC (Bld) 3.8 % Normal [facility] Comment on above: Order Comment: Speci men Type: BLOOD SPECIMENOrdering Facility: [facility] Address: [address] [place] [address] Performed By: #### 5 7021-8 ####VILLAR[facility] LABORATORYCLIA [id number] [address] STATES [facility] MCH (RBC) [Entitic mass] 28.5 pg Normal 26.0-34.0 [facility] Comment on above: Order Comment: Speci men Type: BLOOD SPECIMENOrdering Facility: [facility] Address: [address] [place] [address] Performed By: #### 5 7021-8 ####VILLAR[facility] LABORATORYCLIA [id number] [address] MCHC (RBC) [Mass/Vol] 32.7 g/dL Normal 30.5-36.0 [facility] Comment on above: Order Comment: Speci men Type: BLOOD SPECIMENOrdering Facility: [facility] Address: [address] [place] [address] Performed By: #### 5 7021-8 ####VILLARRE[facility] LABORATORYCLIA [id number] [address] MCV (RBC) [Entitic vol] 87.2 fL Normal 80.0-100.0 [facility] Comment on above: Order Comment: Speci men Type: BLOOD SPECIMENOrdering Facility: [facility] Address: [address] [place] [address] Performed By: #### 5 7021-8 ####VILLARRE[facility] LABORATORYCLIA [id number] [place] [address] [place] Monocytes (Bld) [#/Vol] 0.93 10*3/uL High <0.87 [facility] Comment on above: Order Comment: Speci men Type: BLOOD SPECIMENOrdering Facility: [facility] Address: [address] [place] [address] Performed By: #### 5 7021-8 ####VILLARRE[facility] LABORATORYCLIA [id number] [address] [place] Monocytes/100 WBC (Bld) 4.7 % Normal [facility] Comment on above: Order Comment: Speci men Type: BLOOD SPECIMENOrdering Facility: [facility] Address: [address] [place] [address] Performed By: #### 5 7021-8 ####VILLARRE[facility] LABORATORYCLIA [id number] [place] [address] [place] Neutrophils (Bld) [#/Vol] 17.78 10*3/uL High 1.45-7.50 [facility] Comment on above: Order Comment: Speci men Type: BLOOD SPECIMENOrdering Facility: [facility] Address: [address] [place] [address] Performed By: #### 5 7021-8 ####VILLARRE[facility] LABORATORYCLIA [id number] [address] [place] Neutrophils/100 WBC (Bld) 88.8 % Normal [facility] Comment on above: Order Comment: Speci men Type: BLOOD SPECIMENOrdering Facility: [facility] Address: [address] [place] [address] Performed By: #### 5 7021-8 ####VILLARRE[facility] LABORATORYCLIA [id number] [place] [address] [place] Nucleated RBC (Bld) [#/Vol] 10*3/uL Normal <0.01 [facility] Comment on above: Order Comment: Speci men Type: BLOOD SPECIMENOrdering Facility: [facility] Address: [address] [place] [address] Performed By: #### 5 7021-8 ####VILLARRE[facility] LABORATORYCLIA [id number] [place] [address] [place] Nucleated RBC/100 WBC (Bld) [Ratio] 0.0 /100 WBC Normal [facility] Comment on above: Order Comment: Speci men Type: BLOOD SPECIMENOrdering Facility: [facility] Address: [address] [place] [address] Performed By: #### 5 7021-8 ####VILLARRE[facility] LABORATORYCLIA [id number] [place] [address] [place] Platelet mean volume (Bld) [Entitic vol] 8.6 fL Low 9.0-12.7 [facility] Comment on above: Order Comment: Speci men Type: BLOOD SPECIMENOrdering Facility: [facility] Address: [address] [place] [address] Performed By: #### 5 7021-8 ####VILLARRE[facility] LABORATORYCLIA [id number] [place] [address] [place] Platelets (Bld) [#/Vol] 442 10*3/uL High 150-400 [facility] Comment on above: Order Comment: Speci men Type: BLOOD SPECIMENOrdering Facility: [facility] Address: [address] [place] [address] Performed By: #### 5 7021-8 ####VILLAR[facility] LABORATORYCLIA [id number] [place] [address] [place] RBC (Bld) [#/Vol] 2.98 10*6/uL Low 3.90-5.20 [facility] Comment on above: Order Comment: Speci men Type: BLOOD SPECIMENOrdering Facility: [facility] Address: [address] [place] [address] Performed By: #### 5 7021-8 ####VILL[facility] LABORATORYCLIA [id number] [place] [address] [place] WBC (Bld) [#/Vol] 19.99 10*3/uL High 3.70-11.00 [facility] Comment on above: Order Comment: Speci men Type: BLOOD SPECIMENOrdering Facility: [facility] Address: [address] [place] [id number] Performed By: #### 5 7021-8 ####[facility] LABORATORYCLIA [id number] [place] [address] [place] CONSULTon 12-03-2024 CONSULT Normal [facility] CONSULT Normal [facility] CONSULT PROGon 12-03-2024 CONSULT PROG Normal [facility] CONSULT PROG Normal [facility] CONSULT PROG Normal [facility] CRP SerPl-mCncon 12-03-2024 CRP [Mass/Vol] 20.0 mg/dL High <0.9 [facility] Comment on above: Order Comment: Speci men Type: BLOOD SPECIMENOrdering Facility: [facility] Address: [facility] [place] [address] Performed By: #### 1 988-5, 37539-0, ####MAR[facility] LABORATORYCLIA [id number] [place] [address] [place] CHEST WO IVCONon 12-03-19 CT CHEST WO IVCON Invalid Interpretation Code [facility] Comprehensive metabolic 2000 panelon 12-03-2024 Albumin [Mass/Vol] 2.5 g/dL Low 3.9-4.9 [facility] Comment on above: Order Comment: Speci men Type: BLOOD SPECIMENOrdering Facility: [facility] Address: [facility] [address] [place] [id number] Performed By: #### 1 988-5, 76110-9, ####VILLARREAL LABORATORYCLIA [id number] [place] [id number] [place] ALP [Catalytic activity/Vol] 93 U/L Normal 34-123 [facility] Comment on above: Order Comment: Speci men Type: BLOOD SPECIMENOrdering Facility: [facility] Address: [facility] [place] [address] Performed By: #### 1 988-5, 29972-7, ####VILLARREAL LABORATORYCLIA [id number] [place] [address] [place] ALT [Catalytic activity/Vol] U/L Low 7-38 [facility] Comment on above: Order Comment: Speci men Type: BLOOD SPECIMENOrdering Facility: [facility] Address: [address] [place] [address] Performed By: #### 1 988-5, , ####VILLARRE[facility] LABORATORYCLIA [id number] [place] [address] [place] Anion gap [Moles/Vol] 10 mmol/L Normal 8-15 [facility] Comment on above: Order Comment: Speci men Type: BLOOD SPECIMENOrdering Facility: [facility] Address: [address] [place] [address] Performed By: #### 1 988-5, , ####VILLARREAL LABORATORYCLIA [id number] [place] [address] [place] AST [Catalytic activity/Vol] 15 U/L Normal 13-35 [facility] Comment on above: Order Comment: Speci men Type: BLOOD SPECIMENOrdering Facility: [facility] Address: [address] [place] [address] Performed By: #### 1 988-5, , ####VILLARRE[facility] LABORATORYCLIA [id number] [place] [address] [place] Bilirubin [Mass/Vol] 0.2 mg/dL Normal 0.2-1.3 [facility] Comment on above: Order Comment: Speci men Type: BLOOD SPECIMENOrdering Facility: [facility] Address: [address] [place] [address] Performed By: #### 1 988-5, , ####VILLAR[facility] LABORATORYCLIA [id number] [place] [address] [place] Calcium [Mass/Vol] 9.2 mg/dL Normal 8.5-10.2 [facility] Comment on above: Order Comment: Speci men Type: BLOOD SPECIMENOrdering Facility: [facility] Address: [address] [place] [address] Performed By: #### 1 988-5, 13776-8, ####VILLARRE[facility] LABORATORYCLIA [id number] [place] [address] [place] [facility] Chloride [Moles/Vol] 94 mmol/L Low 98-107 [facility] Comment on above: Order Comment: Fan meade Type: BLOOD SPECIMENOrdering Facility: [facility] Address: [address] [place] [address] Performed By: #### 1 988-5, 95504-7, ####MAR[facility] LABORATORYCLIA [id number] [address] [place] CO2 [Moles/Vol] 24 mmol/L Normal 22-30 [facility] Comment on above: Order Comment: Fan meade Type: BLOOD SPECIMENOrdering Facility: [facility] Address: [address] [place] [address] Performed By: #### 1 988-5, 42983-1, ####MAR[facility] LABORATORYCLIA [id number] [address] STATES OF [facility] Creatinine [Mass/Vol] 0.92 mg/dL Normal 0.58-0.96 [facility] [place] Comment on above: Order Comment: Fan meade Type: BLOOD SPECIMENOrdering Facility: [facility] Address: [address] [place] [address] Performed By: #### 1 988-5, 75121-4, ####MARION LABORATORYCLIA [id number] [address] Creatinine and Glomerular filtration rate.predicted panel (S/P/Bld) 60 mL/min/1.73m??? Normal >=60 [facility] Comment on above: Order Comment: Fan meade Type: BLOOD SPECIMENOrdering Facility: [facility] Address: [address] [place] [address] Result Comment: Hilda mated Glomerular Filtration Rate [...] actual GFR. Performed By: #### 1 988-5, 41666-7, ####MAR[facility] LABORATORYCLIA [id number] [place] [address] [place] Glucose [Mass/Vol] 246 mg/dL High 74-99 [facility] Comment on above: Order Comment: Speci men Type: BLOOD SPECIMENOrdering Facility: [facility] Address: [address] [place] [address] Result Comment: The [place] [employer] (ADA) provides guidance for cutoff [...] Standards of Medical Care in Diabetes 2016, [place] [employer]. Diabetes Care. 2016.39(Suppl 1). Performed By: #### 1 988-5, 91734-9, ####MAR[facility] LABORATORYCLIA [id number] [place] [id number] [place] Potassium [Moles/Vol] 4.6 mmol/L Normal 3.7-5.1 [facility] [place] Comment on above: Order Comment: Speci men Type: BLOOD SPECIMENOrdering Facility: [facility] Address: [address] [place] [address] Performed By: #### 1 988-5, 03053-2, ####MAR[facility] LABORATORYCLIA [id number] [place] [address] [place] Protein [Mass/Vol] 5.7 g/dL Low 6.3-8.0 [facility] Comment on above: Order Comment: Katei men Type: BLOOD SPECIMENOrdering Facility: [facility] Address: [address] [place], [place] [address] Performed By: #### 1 988-5, 95670-6, ####MAR[facility] LABORATORYCLIA [id number] [place] [address] [place] Sodium [Moles/Vol] 128 mmol/L Low 136-144 [facility] Comment on above: Order Comment: Speci men Type: BLOOD SPECIMENOrdering Facility: [facility] Address: [address] [place] [address] Performed By: #### 1 988-5, 82178-6, 41152-5 ####MAR[facility] LABORATORYCLIA [id number] [place] [address] [place] Urea nitrogen [Mass/Vol] 37 mg/dL High 7-21 [facility] Comment on above: Order Comment: Speci men Type: BLOOD SPECIMENOrdering Facility: [facility] Address: [address] [place] [address] Performed By: #### 1 988-5, 12440-7, 36044-0 ####MAR[facility] LABORATORYCLIA [id number] [place] [address] [place] Cyclic citrullinated peptide IgG Qnon 12-03-2024 CCP ANTIBODY IGG QUALITATIVE Negative Normal Negative [facility] Comment on above: Order Comment: Speci men Type: BLOOD SPECIMENOrdering Facility: [facility] Address: [address] [place] [address] Performed By: #### 3 3935-8 ####[facility] LABCLIA [id number] [place] [address] [place] ESR Westergren method (Bld) [Velocity]on 12-03-2024 ESR (Bld) [Velocity] 124 mm/h High 0-20 [facility] Comment on above: Order Comment: Speci men Type: BLOOD SPECIMENOrdering Facility: [facility] Address: [address] [place] [address] Performed By: #### 4 537-7 ####[facility] LABCLIA [id number] [place] [address] [place] Magnesium SerPl-mCncon 12-03 Magnesium [Mass/Vol] 1.8 mg/dL Normal 1.7-2.3 [facility] Comment on above: Order Comment: Speci men Type: BLOOD SPECIMENOrdering Facility: [facility] Address: [address] [place] [address] Performed By: #### 1 988-5, 99916-1, 66844-9 ####VILLARREAL LABORATORYCLIA [id number] [place] [address] [place] Rheumatoid fact SerPl-aCncon 12-03-2024 Rheumatoid factor Qn 19 [IU]/mL High <16 [facility] Comment on above: Order Comment: Speci men Type: BLOOD SPECIMENOrdering Facility: [facility] Address: [address] [place] [address] Performed By: #### 1 1572-5 ####[facility] LABCLIA [id number] [place] [address] [place] Sodium SerPl-sCncon 12-03-19 25 Sodium [Moles/Vol] 129 mmol/L Low 136-144 [facility] Comment on above: Order Comment: Speci men Type: BLOOD SPECIMENOrdering Facility: [facility] Address: [address] [place] [address] Performed By: #### 2 951-2 ####VILLARRE[facility] LABORATORYCLIA [id number] [place] [address] [place] Sodium [Moles/Vol] 130 mmol/L Low 136-144 [facility] Comment on above: Order Comment: Speci men Type: BLOOD SPECIMENOrdering Facility: [facility] Address: [address] [place] [address] Performed By: #### 2 951-2 ####VILLARREAL LABORATORYCLIA [id number] [place] [address] [place] Sodium [Moles/Vol] 128 mmol/L Low 136-144 [facility] Comment on above: Order Comment: Speci men Type: BLOOD SPECIMENOrdering Facility: [facility] Address: [address] [place] [address] Performed By: #### 2 951-2 ####VILLARREAL LABORATORYCLIA [id number] [facility] [place] [address] [place] THERAPY NTon 12-03-2024 THERAPY NT Normal [facility] THERAPY NT Normal [facility] THERAPY NT Normal [facility] cCP IgG SerPl-aCncon 025 Cyclic citrullinated peptide IgG Qn <15 Normal <20 [facility] Comment on above: Order Comment: Speci men Type: BLOOD SPECIMENOrdering Facility: [facility] Address: [address] [place] [address] Performed By: #### 3 3935-8 ####[facility] LABCLIA [id number] [place] [address] [place] 25(OH)D3 SerPl-mCncon 2024 25-hydroxyvitamin D3 [Mass/Vol] 13.4 ng/mL Low 31.0-80.0 [facility] Comment on above: Order Comment: Speci men Type: BLOOD SPECIMENOrdering Facility: [facility] Address: [address] [place] [address] Result Comment: Clas sification of 25 [place] Vitamin D status:Deficiency/Insufficiency: < or = 30 ng/ml.Sufficiency/Optimal Levels: 31-80 ng/mLToxicity: > 100 ng/mL.Test performed by chemiluminescent immunoassay. Performed By: #### 1 989-3, 33002-9, 53236-1, [facility], 6969-0 ####[facility] LABCLIA [id number] [place] [address] [place] ALLIED HEALTHon 12-02-2024 ALLIED HEALTH Normal [facility] ALLIED HEALTH [facility] [place] [facility] ARTERIAL BLOOD GASESon 12-02 Base excess Calc (Bld) [Moles/Vol] 4 mmol/L High 0-2 [facility] Comment on above: Order Comment: Speci men Type: ARTERIAL BLOOD SPECIMENOrdering Facility: [facility] Address: [address] [place] [address] Performed By: #### A LLBG ####[facility] RESPIRATORYCLIA [id number] [facility] [id number] [address] Carboxyhemoglobin (BldA) [Mass fraction] 1.4 % Normal 0.0-2.0 [facility] Comment on above: Order Comment: Speci men Type: ARTERIAL BLOOD SPECIMENOrdering Facility: [facility] Address: [address] [place] [address] Result Comment: Carb oxyhemoglobin Reference Range for Smokers: 2.0-8.0% Performed By: #### A LLBG ####[facility]IRATORYR[facility] [id number] [facility] RESPIRAT[facility] [id number] [address] CO2 (Bld) [Partial pressure] 41 mm Hg Normal 36-46 [facility] Comment on above: Order Comment: Speci men Type: ARTERIAL BLOOD SPECIMENOrdering Facility: [facility] Address: [address] [place] [address] Performed By: #### A LLBG ####[facility]ORYR[facility] [id number] [id number] [address] CO2 adjusted to patient's actual temperature (Bld) [Partial pressure] Normal [facility] Comment on above: Order Comment: Speci men Type: ARTERIAL BLOOD SPECIMENOrdering Facility: [facility] Address: [address] [place] [address] Performed By: #### A LLBG ####[facility]ORYR[facility] [id number] [facility]PIRAT[facility] [id number] [address] HCO3 (Bld) [Moles/Vol] 28 mmol/L High 22-26 [facility] Comment on above: Order Comment: Speci men Type: ARTERIAL BLOOD SPECIMENOrdering Facility: [facility] Address: [address] [place] [address] Performed By: #### A LLBG ####[facility] [id number] [facility] RESPIRAT[facility] [id number] [address] Hemoglobin (Bld) [Mass/Vol] 10.3 g/dL Low 11.5-15.5 [facility] Comment on above: Order Comment: Speci men Type: ARTERIAL BLOOD SPECIMENOrdering Facility: [facility] Address: [address] [place] [address] Performed By: #### A LLBG ####[facility] RESPIRATORYIA [id number] [facility] RESPIRATORY [id number] [address] Lactate [Moles/Vol] 1.0 mmol/L Normal 0.5-2.2 [facility] Comment on above: Order Comment: Speci men Type: ARTERIAL BLOOD SPECIMENOrdering Facility: [facility] Address: [address] [place] [id number] Performed By: #### A LLBG ####[facility]ORYR[facility] [id number] [facility]OSP[facility] RESPIRATORY [id number] [address] Methemoglobin (Bld) [Mass fraction] % Normal 0.0-1.5 [facility] Comment on above: Order Comment: Speci men Type: ARTERIAL BLOOD SPECIMENOrdering Facility: [facility] Address: [address] [place] [id number] Performed By: #### A LLBG ####[facility]ORYR[facility] [id number] HOS[facility] RESPIRATORY [id number] [address] O2 THERAPY RA=Room [facility] Comment on above: Order Comment: Speci men Type: ARTERIAL BLOOD SPECIMENOrdering Facility: [facility] Address: [address] [place] [address] Performed By: #### A LLBG ####[facility] [id number] [facility]IRAT[facility] [id number] [address] [address] Oxygen (Bld) [Partial pressure] 61 mm Hg Low 85-95 [facility] Comment on above: Order Comment: Speci men Type: ARTERIAL BLOOD SPECIMENOrdering Facility: [facility] Address: [address] [place] [address] Performed By: #### A LLBG ####[facility] [id number] [facility]OS[facility] RESPIRATORY [id number] [address] [address] Oxygen adjusted to patient's actual temperature (Bld) [Partial pressure] Normal [facility] Comment on above: Order Comment: Speci men Type: ARTERIAL BLOOD SPECIMENOrdering Facility: [facility] Address: [address] [place] [address] Performed By: #### A LLBG ####[facility] RESPIRATORYIA [id number] [facility]OSP[facility] RESPIRATORY [id number] [address] [address] Oxyhemoglobin (BldA) [Mass fraction] 90 % Low 95-98 [facility] Comment on above: Order Comment: Speci men Type: ARTERIAL BLOOD SPECIMENOrdering Facility: [facility] Address: [address] [place] [address] Performed By: #### A LLBG ####[facility] RESPIRATORY[id number] [facility] RESPIRATORY [id number] [address] [address] pH (Bld) 7.45 [pH] Normal 7.35-7.45 [facility] Comment on above: Order Comment: Speci men Type: ARTERIAL BLOOD SPECIMENOrdering Facility: [facility] Address: [address] [place] [address] Performed By: #### A LLBG ####[facility] RESPIRATORY[id number] [facility] RESPIRAT[facility] [id number] [address] [address] pH adjusted to patient's actual temperature (Bld) Normal [facility] Comment on above: Order Comment: Speci men Type: ARTERIAL BLOOD SPECIMENOrdering Facility: [facility] Address: [address] [place] [address] Performed By: #### A LLBG ####[facility] RESPIRATORYIA [id number] [facility]OS[facility] RESPIRATORY [id number] [address] [address] PO2 / FIO2 RATIO 290 mmHg Low >300 [facility] Comment on above: Order Comment: Speci men Type: ARTERIAL BLOOD SPECIMENOrdering Facility: [facility] Address: [address] [place] [address] Performed By: #### A LLBG ####[facility]ORY[id number] [facility]OS[facility] RESPIRATORY [id number] [address] [address] Potassium [Moles/Vol] 4.0 mmol/L Normal 3.5-5.0 [facility] [place] Comment on above: Order Comment: Speci men Type: ARTERIAL BLOOD SPECIMENOrdering Facility: [facility] Address: [address] [place] [address] Performed By: #### A LLBG ####[facility]ILLAR[facility] RESPIRATORYCLIA [id number] [facility] RESPIRATORY [id number] [place] [address] Ammonia Plas-sCncon 12-02-19 25 Ammonia (P) [Moles/Vol] 14 umol/L Normal 11-51 [facility] Comment on above: Order Comment: Speci men Type: BLOOD SPECIMENOrdering Facility: [facility] Address: [address] [place] [address] Performed By: #### 1 6362-6 ####VILLARREAL LABORATORYCLIA [id number] [place] [address] [place] CBC W Auto Differential pane l (Bld)on 12-02-2024 Basophils (Bld) [#/Vol] 0.06 10*3/uL Normal <0.11 [facility] Comment on above: Order Comment: Speci men Type: BLOOD SPECIMENOrdering Facility: [facility] Address: [address] [place] [address] Performed By: #### 5 7021-8 ####VILLARREAL LABORATORYCLIA [id number] [place] [address] [place] Basophils/100 WBC (Bld) 0.3 % Normal [facility] Comment on above: Order Comment: Speci men Type: BLOOD SPECIMENOrdering Facility: [facility] Address: [address] [place] [address] Performed By: #### 5 7021-8 ####VILLARREAL LABORATORYCLIA [id number] [place] [address] [place] Differential cell count method Nom (Bld) Auto Normal [facility] Comment on above: Order Comment: Speci men Type: BLOOD SPECIMENOrdering Facility: [facility] Address: [address] [place] [address] Performed By: #### 5 7021-8 ####VILLARREAL LABORATORYCLIA [id number] [address] [place] Eosinophils (Bld) [#/Vol] 0.24 10*3/uL Normal <0.46 [facility] Comment on above: Order Comment: Speci men Type: BLOOD SPECIMENOrdering Facility: [facility] Address: [address] [place] [address] Performed By: #### 5 7021-8 ####VILLARREAL LABORATORYCLIA [id number] [address] Eosinophils/100 WBC (Bld) 1.2 % Normal [facility] Comment on above: Order Comment: Speci men Type: BLOOD SPECIMENOrdering Facility: [facility] Address: [address] [place] [address] Performed By: #### 5 7021-8 ####VILLARREAL LABORATORYCLIA [id number] [address] [place] Erythrocyte distribution width (RBC) [Ratio] 15.6 % High 11.5-15.0 [facility] Comment on above: Order Comment: Speci men Type: BLOOD SPECIMENOrdering Facility: [facility] Address: [address] [place] [address] Performed By: #### 5 7021-8 ####VILLARREAL LABORATORYCLIA [id number] [address] Hematocrit (Bld) [Volume fraction] 27.1 % Low 36.0-46.0 [facility] Comment on above: Order Comment: Speci men Type: BLOOD SPECIMENOrdering Facility: [facility] Address: [address] [place] [address] Performed By: #### 5 7021-8 ####VILLARREAL LABORATORYCLIA [id number] [address] [place] Hemoglobin (Bld) [Mass/Vol] 9.0 g/dL Low 11.5-15.5 [facility] Comment on above: Order Comment: Speci men Type: BLOOD SPECIMENOrdering Facility: [facility] Address: [address] [place] [address] Performed By: #### 5 7021-8 ####VILLARREAL LABORATORYCLIA [id number] [address] [place] Immature granulocytes (Bld) [#/Vol] 0.23 10*3/uL High <0.10 [facility] Comment on above: Order Comment: Speci men Type: BLOOD SPECIMENOrdering Facility: [facility] Address: [address] [place] [address] Performed By: #### 5 7021-8 ####VILLARREAL LABORATORYCLIA [id number] [address] Immature granulocytes/100 WBC (Bld) 1.2 % Normal [facility] Comment on above: Order Comment: Speci men Type: BLOOD SPECIMENOrdering Facility: [facility] Address: [address] [place] [address] Performed By: #### 5 7021-8 ####VILLARREAL LABORATORYCLIA [id number] [address] [place] Lymphocytes (Bld) [#/Vol] 0.92 10*3/uL Low 1.00-4.00 [facility] Comment on above: Order Comment: Speci men Type: BLOOD SPECIMENOrdering Facility: [facility] Address: [address] [place] [address] Performed By: #### 5 7021-8 ####VILLARREAL LABORATORYCLIA [id number] [address] Lymphocytes/100 WBC (Bld) 4.7 % Normal [facility] Comment on above: Order Comment: Speci men Type: BLOOD SPECIMENOrdering Facility: [facility] Address: [address] [place] [address] Performed By: #### 5 7021-8 ####VILLARREAL LABORATORYCLIA [id number] [place] [address] [place] MCH (RBC) [Entitic mass] 28.2 pg Normal 26.0-34.0 [facility] Comment on above: Order Comment: Speci men Type: BLOOD SPECIMENOrdering Facility: [facility] Address: [address] [place] [address] Performed By: #### 5 7021-8 ####VILLARREAL LABORATORYCLIA [id number] [place] [id number] [place] MCHC (RBC) [Mass/Vol] 33.2 g/dL Normal 30.5-36.0 [facility] [place] Comment on above: Order Comment: Speci men Type: BLOOD SPECIMENOrdering Facility: [facility] Address: [address] [place] [address] Performed By: #### 5 7021-8 ####VILLARREAL LABORATORYCLIA [id number] [place] [address] [place] MCV (RBC) [Entitic vol] 85.0 fL Normal 80.0-100.0 [facility] Comment on above: Order Comment: Speci men Type: BLOOD SPECIMENOrdering Facility: [facility] Address: [address] [place] [address] Performed By: #### 5 7021-8 ####VILLARREAL LABORATORYCLIA [id number] [place] [address] [place] Monocytes (Bld) [#/Vol] 1.07 10*3/uL High <0.87 [facility] Comment on above: Order Comment: Speci men Type: BLOOD SPECIMENOrdering Facility: [facility] Address: [address] [place] [address] Performed By: #### 5 7021-8 ####VILLARREAL LABORATORYCLIA [id number] [address] Monocytes/100 WBC (Bld) 5.4 % Normal [facility] Comment on above: Order Comment: Speci men Type: BLOOD SPECIMENOrdering Facility: [facility] Address: [address] [place] [address] Performed By: #### 5 7021-8 ####VILLARREAL LABORATORYCLIA [id number] [place] [id number] [place] Neutrophils (Bld) [#/Vol] 17.12 10*3/uL High 1.45-7.50 [facility] Comment on above: Order Comment: Speci men Type: BLOOD SPECIMENOrdering Facility: [facility] Address: [address] [place] [address] Performed By: #### 5 7021-8 ####VILLARREAL LABORATORYCLIA [id number] [address] Neutrophils/100 WBC (Bld) 87.2 % Normal [facility] Comment on above: Order Comment: Speci men Type: BLOOD SPECIMENOrdering Facility: [facility] Address: [address] [place] [address] Performed By: #### 5 7021-8 ####VILLARREAL LABORATORYCLIA [id number] [place] [address] [place] Nucleated RBC (Bld) [#/Vol] 10*3/uL Normal <0.01 [facility] Comment on above: Order Comment: Speci men Type: BLOOD SPECIMENOrdering Facility: [facility] Address: [address] [place] [address] Performed By: #### 5 7021-8 ####VILLARREAL LABORATORYCLIA [id number] [address] [place] Nucleated RBC/100 WBC (Bld) [Ratio] 0.0 /100 WBC Normal [facility] Comment on above: Order Comment: Speci men Type: BLOOD SPECIMENOrdering Facility: [facility] Address: [address] [place] [address] Performed By: #### 5 7021-8 ####VILLARREAL LABORATORYCLIA [id number] [address] [place] Platelet mean volume (Bld) [Entitic vol] 8.8 fL Low 9.0-12.7 [facility] Comment on above: Order Comment: Speci men Type: BLOOD SPECIMENOrdering Facility: [facility] Address: [address] [place] [address] Performed By: #### 5 7021-8 ####VILLARREAL LABORATORYCLIA [id number] [address] [place] Platelets (Bld) [#/Vol] 439 10*3/uL High 150-400 [facility] Comment on above: Order Comment: Speci men Type: BLOOD SPECIMENOrdering Facility: [facility] Address: [address] [place] [address] Performed By: #### 5 7021-8 ####VILLARREAL LABORATORYCLIA [id number] [place] [address] [place] RBC (Bld) [#/Vol] 3.19 10*6/uL Low 3.90-5.20 [facility] Comment on above: Order Comment: Speci men Type: BLOOD SPECIMENOrdering Facility: [facility] Address: [address] [place] [address] Performed By: #### 5 7021-8 ####VILLARREAL LABORATORYCLIA [id number] [place] [address] [place] WBC (Bld) [#/Vol] 19.64 10*3/uL High 3.70-11.00 [facility] Comment on above: Order Comment: Speci men Type: BLOOD SPECIMENOrdering Facility: [facility] Address: [address] [place] [address] Performed By: #### 5 7021-8 ####MARION LABORATORYCLIA [id number] [address] [place] CK SerPl-cCncon 12-02-2024 CK [Catalytic activity/Vol] 48 U/L Normal 42-196 [facility] Comment on above: Order Comment: Speci men Type: BLOOD SPECIMENOrdering Facility: [facility] Address: [address] [place] [address] Performed By: #### 2 951-2, 2157-6, 3084-1 ####MARION LABORATORYCLIA [id number] [address] OF [facility] CONSULT PROGon 12-02-2024 CONSULT PROG Normal [facility] CRP SerPl-mCncon 12-02-2024 CRP [Mass/Vol] 14.2 mg/dL High <0.9 [facility] Comment on above: Order Comment: Speci men Type: BLOOD SPECIMENOrdering Facility: [facility] Address: [address] [place] [address] Performed By: #### 3 084-1, 00622-5, 68178-4, 1987 ####VILLARREAL LABORATORYCLIA [id number] [place] [address] [place] Comprehensive metabolic 2000 panelon 12-02-2024 Albumin [Mass/Vol] 2.3 g/dL Low 3.9-4.9 [facility] Comment on above: Order Comment: Speci men Type: BLOOD SPECIMENOrdering Facility: [facility] Address: [address] [place] [address] Performed By: #### 3 084-1, , , 1988-03 ####VILLARREAL LABORATORYCLIA [id number] [place] [address] [place] ALP [Catalytic activity/Vol] 94 U/L Normal 34-123 [facility] Comment on above: Order Comment: Speci men Type: BLOOD SPECIMENOrdering Facility: [facility] Address: [address] [place] [address] Performed By: #### 3 084-1, , , 1988-03 ####VILLARREAL LABORATORYCLIA [id number] [place] [address] [place] ALT [Catalytic activity/Vol] U/L Low 7-38 [facility] Comment on above: Order Comment: Speci men Type: BLOOD SPECIMENOrdering Facility: [facility] Address: [address] [place] [address] Performed By: #### 3 084-1, , , 1988-03 ####VILLARREAL LABORATORYCLIA [id number] [place] [address] [place] Anion gap [Moles/Vol] 11 mmol/L Normal 8-15 [facility] [place] Comment on above: Order Comment: Speci men Type: BLOOD SPECIMENOrdering Facility: [facility] Address: [address] [place] [address] Performed By: #### 3 084-1, , , 1988-03 ####VILLARREAL LABORATORYCLIA [id number] [place] [address] [place] AST [Catalytic activity/Vol] 15 U/L Normal 13-35 [facility] Comment on above: Order Comment: Speci men Type: BLOOD SPECIMENOrdering Facility: [facility] Address: [facility] [place] [address] Performed By: #### 3 084-1, , , 1988-03 ####VILLARREAL LABORATORYCLIA [id number] [place] [address] [place] Bilirubin [Mass/Vol] 0.2 mg/dL Normal 0.2-1.3 [facility] Comment on above: Order Comment: Speci men Type: BLOOD SPECIMENOrdering Facility: [facility] Address: [address] [place] [address] Performed By: #### 3 084-1, , , 1988-03 ####MARION LABORATORYCLIA [id number] [place] [address] [place] Calcium [Mass/Vol] 9.0 mg/dL Normal 8.5-10.2 [facility] Comment on above: Order Comment: Speci men Type: BLOOD SPECIMENOrdering Facility: [facility] Address: [address] [place] [address] Performed By: #### 3 084-1, , , 1988-03 ####MARION LABORATORYCLIA [id number] [place] [address] [place] Chloride [Moles/Vol] 93 mmol/L Low 98-107 [facility] Comment on above: Order Comment: Speci men Type: BLOOD SPECIMENOrdering Facility: [facility] Address: [address] [place] [address] Performed By: #### 3 084-1, , , 1988-03 ####MARION LABORATORYCLIA [id number] [place] [address] [place] CO2 [Moles/Vol] 24 mmol/L Normal 22-30 [facility] Comment on above: Order Comment: Speci men Type: BLOOD SPECIMENOrdering Facility: [facility] Address: [address] [place] [address] Performed By: #### 3 08-1, , , 1988-03 ####MARION LABORATORYCLIA [id number] [place] [address] [place] [facility] Creatinine [Mass/Vol] 0.89 mg/dL Normal 0.58-0.96 [facility] [place] Comment on above: Order Comment: Fan meade Type: BLOOD SPECIMENOrdering Facility: [facility] Address: [address] [place] [address] Performed By: #### 3 084-1, , , 1988-03 ####MARION LABORATORYCLIA [id number] [place] [address] [facility] Creatinine and Glomerular filtration rate.predicted panel (S/P/Bld) 62 mL/min/1.73m??? Normal >=60 [facility] Comment on above: Order Comment: [facility] Type: BLOOD SPECIMENOrdering Facility: [facility] Address: [address] [place] [address] Result Comment: Hilda mated Glomerular Filtration Rate [...] By: #### 3 084-1, , , 1988-03 ####MARION LABORATORYCLIA [id number] [place] [address] [place] Glucose [Mass/Vol] 289 mg/dL High 74-99 [facility] Comment on above: Order Comment: Fan [facility] Type: BLOOD SPECIMENOrdering Facility: [facility] Address: [address] [place] [address] Result Comment: The [place] [employer] (ADA) provides guidance for cutoff [...] Standards of Medical Care in Diabetes 2016, [place] [employer]. Diabetes Care. 2016.39(Suppl 1). Performed By: #### 3 084-1, , , 1988-03 ####VILLARREAL LABORATORYCLIA [id number] [place] [address] [place] Potassium [Moles/Vol] 4.4 mmol/L Normal 3.7-5.1 [facility] [place] Comment on above: Order Comment: Fan [place]ade Type: BLOOD SPECIMENOrdering Facility: [facility] Address: [address] [place] [address] Performed By: #### 3 084-1, , , 1988-03 ####VILLARREAL LABORATORYCLIA [id number] [place] [address] [place] Protein [Mass/Vol] 5.6 g/dL Low 6.3-8.0 [facility] Comment on above: Order Comment: Fan [place]ade Type: BLOOD SPECIMENOrdering Facility: [facility] Address: [address] [place] [address] Performed By: #### 3 084-1, , , 1988-03 ####VILLARREAL LABORATORYCLIA [id number] [place] [address] [place] Sodium [Moles/Vol] 128 mmol/L Low 136-144 [facility] Comment on above: Order Comment: Fan meade Type: BLOOD SPECIMENOrdering Facility: [facility] Address: [address] [place] [address] Performed By: #### 3 084-1, , , 1988-03 ####VILLARREAL LABORATORYCLIA [id number] [place] [address] [place] Urea nitrogen [Mass/Vol] 36 mg/dL High 7-21 [facility] Comment on above: Order Comment: Speci men Type: BLOOD SPECIMENOrdering Facility: [facility] Address: [address] [place] [address] Performed By: #### 3 084-1, 46031-5, 11160-8, 1988-03 ####MARION LABORATORYCLIA [id number] [place] [address] [place] DNA double strand Ab IA Qn ( S)on 12-02-2024 DNA ANTIBODY 117 IU/mL Normal <=200 [facility] Comment on above: Order Comment: Speci men Type: BLOOD SPECIMENOrdering Facility: [facility] Address: [address] [place] [address] Result Comment: Nega tive: <200 IU/mLEquivocal: 201-300 IU/mLModerate Positive: 301-800 IU/mLStrong Positive: >801 IU/mL Performed By: #### 1 989-3, 23846-2, 53034-4, ANCAC, 6969-0 ####[facility] LABCLIA [id number] [address] [place] DNA ANTIBODY QUALITATIVE INTERPRETATION Negative Normal Negative [facility] Comment on above: Order Comment: Speci men Type: BLOOD SPECIMENOrdering Facility: [facility] Address: [address] [place] [address] Performed By: #### 1 989-3, 52705-6, 34479-0, ANCAC, 6969-0 ####[facility] LABCLIA [id number] [place] [address] [place] ESR Westergren method (Bld) [Velocity]on 12-02-2024 ESR (Bld) [Velocity] 120 mm/h High 0-20 [facility] Comment on above: Order Comment: Speci men Type: BLOOD SPECIMENOrdering Facility: [facility] Address: [address] [place] [address] Performed By: #### 4 537-7 ####[facility] LABCLIA [id number] [place] [address] [place] MRI BRAIN WO/W IVCONon 12-02 MRI BRAIN WO/W IVCON Normal [facility] MRI CERVICAL SPINE WO/W IVCO Non 12-02-2024 MRI CERVICAL SPINE WO/W IVCON Normal [facility] MRI LUMBAR SPINE WO/W IVCONo n 12-02-2024 MRI LUMBAR SPINE WO/W IVCON Normal [facility] MRI THORACIC SPINE WO/W IVCO Non 12-02-2024 MRI THORACIC SPINE WO/W IVCON Normal [facility] Magnesium SerPl-mCncon 12-02 Magnesium [Mass/Vol] 1.5 mg/dL Low 1.7-2.3 [facility] Comment on above: Order Comment: Speci men Type: BLOOD SPECIMENOrdering Facility: [facility] Address: [address] [place] [address] Performed By: #### 3 084-1, 73256-7, 08460-7, 1988-03 ####MARION LABORATORYCLIA [id number] [place] [address] [place] Myeloperoxidase Ab Ser-aCnco n 12-02-2024 Myeloperoxidase Ab Qn (S) <0.2 Normal <1.0 [facility] Comment on above: Order Comment: Speci men Type: BLOOD SPECIMENOrdering Facility: [facility] Address: [address] [place] [address] Performed By: #### 1 989-3, 83662-3, 65635-6, [facility], 6969-0 ####[facility] LABCLIA [id number] [place] [id number] [place] Osmolality SerPlon Osmolality [Osmolality] 285 mosm/kg Normal 275-300 [facility] Comment on above: Order Comment: Speci men Type: BLOOD SPECIMENOrdering Facility: [facility] Address: [address] [place] [address] Performed By: #### 2 692-2 ####[facility] LABCLIA [id number] [place] [id number] [place] Osmolality Uron 12-02-2024 Osmolality (U) [Osmolality] 488 mosm/kg Normal 50-1200 [facility] Comment on above: Order Comment: Speci men Type: URINE SPECIMENOrdering Facility: [facility] Address: [address] [place] [address] Performed By: #### 2 695-5 ####[facility] LABCLIA [id number] [place] [address] [place] PROTEINASE 3 ANTIBODYon 11-14 Proteinase 3 Ab Qn (S) <0.2 Normal <1.0 [facility] Comment on above: Order Comment: Speci men Type: BLOOD SPECIMENOrdering Facility: [facility] Address: [address] [place] [address] Performed By: #### 1 989-3, 62190-2, 38679-7, [facility], 6969-0 ####[facility] LABCLIA [id number] [place] [address] [place] Phosphate SerPl-mCncon 12-02 Phosphate [Mass/Vol] 3.0 mg/dL Normal 2.7-4.8 [facility] Comment on above: Order Comment: Speci men Type: BLOOD SPECIMENOrdering Facility: [facility] Address: [address] [place] [address] Performed By: #### 2 777-1 ####MARION LABORATORYCLIA [id number] [place] [address] [place] Smooth muscle Ab Ql (S)on ACTIN SMOOTH MUSCLE IGG QUALITATIVE Negative Normal Negative [facility] Comment on above: Order Comment: Speci men Type: BLOOD SPECIMENOrdering Facility: [facility] Address: [address] [place] [address] Performed By: #### 1 989-3, 25824-1, 10361-9, ANCA, 6969-0 ####[facility] LABCLIA [id number] [place] [address] [place] ACTIN SMOOTH MUSCLE IGG QUANTITATIVE 3 Units Normal <20 [facility] Comment on above: Order Comment: Speci men Type: BLOOD SPECIMENOrdering Facility: [facility] Address: [address] [place] [address] Performed By: #### 1 989-3, 63327-8, 55304-5, [facility], 6969-0 ####[facility] LABCLIA [id number] [address] [id number] [address] [place] Sodium SerPl-sCncon 12-02-19 25 Sodium [Moles/Vol] 127 mmol/L Low 136-144 [facility] Comment on above: Order Comment: Speci men Type: BLOOD SPECIMENOrdering Facility: [facility] Address: [address] [place] [address] Performed By: #### 2 951-2 ####[facility] LABORATORYCLIA [id number] [place] [address] [place] Sodium [Moles/Vol] 130 mmol/L Low 136-144 [facility] Comment on above: Order Comment: Speci men Type: BLOOD SPECIMENOrdering Facility: [facility] Address: [address] [place] [address] Performed By: #### 2 951-2, 2156-6, 3084-1 ####[facility] LABORATORYCLIA [id number] [place] [address] [place] US ABD RIGHT UPPER QUADRANTo n 12-02-2024 US ABD RIGHT UPPER QUADRANT Normal [facility] US ABD SPLEEN -NBon 12-02-19 25 US ABD SPLEEN -NB Normal [facility] US EXT MASS/FLUID COLLECTION LTon 12-02-2024 US EXT MASS/FLUID COLLECTION LT Normal [facility] Urate SerPl-mCncon 5 Urate [Mass/Vol] 4.9 mg/dL Normal 2.5-6.6 [facility] Comment on above: Order Comment: Speci men Type: BLOOD SPECIMENOrdering Facility: [facility] Address: [address] [place] [address] Performed By: #### 2 951-2, 7-6, 3084-1 ####VILLARREAL LABORATORYCLIA [id number] [place] [address] [place] Urate [Mass/Vol] 5.1 mg/dL Normal 2.5-6.6 [facility] Comment on above: Order Comment: Speci men Type: BLOOD SPECIMENOrdering Facility: [facility] Address: [address] [place] [address] Performed By: #### 3 084-1, 36774-4, 79996-9, 1987- ####VILLARRE[facility] LABORATORYCLIA [id number] [place] [address] [place] ALLIED HEALTHon 12-01-2024 ALLIED HEALTH Normal [facility] Bacteria Ur Culton Bacteria identified Cx Nom (U) CULTURE, URINE: Mixed microbiota: ORGANISM ID: 1 <10,000 CFU/ml Lactose negative gram negative bacilli Insignificant colony count. No further workup. Normal [facility] Comment on above: Performed By: #### 6 30-4 ####[facility] LABCLIA [id number] [address] [address] [place] Basic metabolic 2000 panelon 12-01-2024 Anion gap [Moles/Vol] 12 mmol/L Normal 8-15 [facility] Comment on above: Order Comment: Speci men Type: BLOOD SPECIMENOrdering Facility: [facility] Address: [address] [place] [address] Performed By: #### 2 4321-2 ####VILLARREAL LABORATORYCLIA [id number] [place] [id number] [place] Calcium [Mass/Vol] 8.7 mg/dL Normal 8.5-10.2 [facility] Comment on above: Order Comment: Speci men Type: BLOOD SPECIMENOrdering Facility: [facility] Address: [address] [place] [address] Performed By: #### 2 4321-2 ####VILLARREAL LABORATORYCLIA [id number] [place] [id number] [place] Chloride [Moles/Vol] 91 mmol/L Low 98-107 [facility] Comment on above: Order Comment: Speci men Type: BLOOD SPECIMENOrdering Facility: [facility] Address: [address] [place] [address] Performed By: #### 2 4321-2 ####VILLARREAL LABORATORYCLIA [id number] [place] [id number] [place] [facility] CO2 [Moles/Vol] 25 mmol/L Normal 22-30 [facility] Comment on above: Order Comment: Fan meade Type: BLOOD SPECIMENOrdering Facility: [facility] Address: [address] [place] [address] Performed By: #### 2 4321-2 ####VILLARREAL LABORATORYCLIA [id number] [address] Creatinine [Mass/Vol] 1.03 mg/dL High 0.58-0.96 [facility] Comment on above: Order Comment: Fan meade Type: BLOOD SPECIMENOrdering Facility: [facility] Address: [address] [place] [address] Performed By: #### 2 4321-2 ####VILLARREAL LABORATORYCLIA [id number] [address] Creatinine and Glomerular filtration rate.predicted panel (S/P/Bld) 52 mL/min/1.73m??? Low >=60 [facility] Comment on above: Order Comment: Fan meade Type: BLOOD SPECIMENOrdering Facility: [facility] Address: [address] [place] [address] Result Comment: Hilda mated Glomerular Filtration Rate [...] Performed By: #### 2 4321-2 ####VILLARREAL LABORATORYCLIA [id number] [place] [id number] [place] [facility] Glucose [Mass/Vol] 200 mg/dL High 74-99 [facility] Comment on above: Order Comment: Fan meade Type: BLOOD SPECIMENOrdering Facility: [facility] Address: [address] [place] [address] Result Comment: The [place] Diabetes Association (ADA) provides guidance for cutoff [...] Standards of Medical Care in Diabetes 2016, [place] [employer]. Diabetes Care. 2016.39(Suppl 1). Performed By: #### 2 4321-2 ####VILLARREAL LABORATORYCLIA [id number] [place] [address] [place] Potassium [Moles/Vol] 4.7 mmol/L Normal 3.7-5.1 [facility] Comment on above: Order Comment: Fan meade Type: BLOOD SPECIMENOrdering Facility: [facility] Address: [address] [place] [address] Performed By: #### 2 4321-2 ####VILLARREAL LABORATORYCLIA [id number] [place] [address] [place] Sodium [Moles/Vol] 128 mmol/L Low 136-144 [facility] Comment on above: Order Comment: Fan meade Type: BLOOD SPECIMENOrdering Facility: [facility] Address: [address] [place] [address] Performed By: #### 2 4321-2 ####VILLARREAL LABORATORYCLIA [id number] [place] [address] [place] Urea nitrogen [Mass/Vol] 36 mg/dL High 7-21 [facility] Comment on above: Order Comment: Fan meade Type: BLOOD SPECIMENOrdering Facility: [facility] Address: [address] [place] [address] Performed By: #### 2 4321-2 ####VILLARREAL LABORATORYCLIA [id number] [place] [address] [place] Anion gap [Moles/Vol] 12 mmol/L Normal 8-15 [facility] Comment on above: Order Comment: Speci men Type: BLOOD SPECIMENOrdering Facility: [facility] Address: [address] [place] [address] Performed By: #### 1 9123-9, 75578-6, 51152-5, 31778-0, 32135-8 ####VILLARREAL LABORATORYCLIA [id number] [place] [address] [place] Calcium [Mass/Vol] 9.4 mg/dL Normal 8.5-10.2 [facility] Comment on above: Order Comment: Speci men Type: BLOOD SPECIMENOrdering Facility: [facility] Address: [address] [place] [address] Performed By: #### 1 9123-9, 68206-0, 26624-4, 24783-1, 44184-9 ####[facility] LABORATORYCLIA [id number] [place] [address] [place] Chloride [Moles/Vol] 92 mmol/L Low 98-107 [facility] Comment on above: Order Comment: Speci men Type: BLOOD SPECIMENOrdering Facility: [facility] Address: [address] [place] [address] Performed By: #### 1 9123-9, 31409-0, 98768-2, 85488-3, 38591-1 ####[facility] LABORATORYCLIA [id number] [place] [address] [place] CO2 [Moles/Vol] 25 mmol/L Normal 22-30 [facility] Comment on above: Order Comment: Speci men Type: BLOOD SPECIMENOrdering Facility: [facility] Address: [address] [place] [address] Performed By: #### 1 9123-9, 97266-3, 14507-3, 61568-4, 70886-3 ####[facility] LABORATORYCLIA [id number] [place] [address] [place] Creatinine [Mass/Vol] 0.95 mg/dL Normal 0.58-0.96 [facility] Comment on above: Order Comment: Speci men Type: BLOOD SPECIMENOrdering Facility: [facility] Address: [address] [place] [address] Performed By: #### 1 9123-9, 20338-8, 75622-5, 69837-1, 45483-3 ####[facility] LABORATORYCLIA [id number] [place] [address] [place] Creatinine and Glomerular filtration rate.predicted panel (S/P/Bld) 58 mL/min/1.73m??? Low >=60 [facility] Comment on above: Order Comment: Fan meade Type: BLOOD SPECIMENOrdering Facility: [facility] Address: [address] [place] [address] Result Comment: Hilda mated Glomerular Filtration Rate [...] actual GFR. Performed By: #### 1 9123-9, 88052-7, 15037-2, 39681-3, 64268-8 ####[facility] LABORATORYCLIA [id number] [place] [id number] [place] Glucose [Mass/Vol] 230 mg/dL High 74-99 [facility] Comment on above: Order Comment: Fan meade Type: BLOOD SPECIMENOrdering Facility: [facility] Address: [address] [place] [address] Result Comment: The [place] Diabetes Association (ADA) provides guidance for cutoff [...] Standards of Medical Care in Diabetes 2016, [place] [employer]. Diabetes Care. 2016.39(Suppl 1). Performed By: #### 1 9123-9, 33965-7, 81652-8, 51642-1, 76664-1 ####[facility] LABORATORYCLIA [id number] [place] [address] [place] Potassium [Moles/Vol] 4.7 mmol/L Normal 3.7-5.1 [facility] Comment on above: Order Comment: Speci men Type: BLOOD SPECIMENOrdering Facility: [facility] Address: [address] [place] [address] Performed By: #### 1 9123-9, 57320-7, 69807-2, 64977-1, 82989-8 ####MAR[facility] LABORATORYCLIA [id number] [place] [address] [place] Sodium [Moles/Vol] 129 mmol/L Low 136-144 [facility] Comment on above: Order Comment: Speci men Type: BLOOD SPECIMENOrdering Facility: [facility] Address: [address] [place] [address] Performed By: #### 1 9123-9, 09986-8, 04315-2, 68988-9, 26314-4 ####[facility] LABORATORYCLIA [id number] [place] [address] [place] Urea nitrogen [Mass/Vol] 36 mg/dL High 7-21 [facility] Comment on above: Order Comment: Speci men Type: BLOOD SPECIMENOrdering Facility: [facility] Address: [address] [place] [address] Performed By: #### 1 9123-9, 74843-6, 66644-0, 78455-0, 51896-5 ####[facility] LABORATORYCLIA [id number] [place] [address] [place] CBC W Auto Differential pane l (Bld)on 12-01-2024 Basophils (Bld) [#/Vol] 0.06 10*3/uL Normal <0.11 [facility] Comment on above: Order Comment: Speci men Type: BLOOD SPECIMENOrdering Facility: [facility] Address: [address] [place] [address] Performed By: #### 5 7021-8 ####VILLARRE[facility] LABORATORYCLIA [id number] [place] [address] [place] Basophils/100 WBC (Bld) 0.3 % Normal [facility] Comment on above: Order Comment: Speci men Type: BLOOD SPECIMENOrdering Facility: [facility] Address: [address] [place] [address] Performed By: #### 5 7021-8 ####V[facility] LABORATORYCLIA [id number] [address] Differential cell count method Nom (Bld) Auto Normal [facility] Comment on above: Order Comment: Speci men Type: BLOOD SPECIMENOrdering Facility: [facility] Address: [address] [place] [address] Performed By: #### 5 7021-8 ####VILLARRE[facility] LABORATORYCLIA [id number] [place] [address] [place] Eosinophils (Bld) [#/Vol] 0.20 10*3/uL Normal <0.46 [facility] Comment on above: Order Comment: Speci men Type: BLOOD SPECIMENOrdering Facility: [facility] Address: [address] [place] [address] Performed By: #### 5 7021-8 ####VILLAR[facility] LABORATORYCLIA [id number] [address] Eosinophils/100 WBC (Bld) 0.9 % Normal [facility] Comment on above: Order Comment: Speci men Type: BLOOD SPECIMENOrdering Facility: [facility] Address: [address] [place] [address] Performed By: #### 5 7021-8 ####VILLARRE[facility] LABORATORYCLIA [id number] [address] [place] Erythrocyte distribution width (RBC) [Ratio] 15.9 % High 11.5-15.0 [facility] Comment on above: Order Comment: Speci men Type: BLOOD SPECIMENOrdering Facility: [facility] Address: [address] [place] [address] Performed By: #### 5 7021-8 ####VILLARRE[facility] LABORATORYCLIA [id number] [address] [place] Hematocrit (Bld) [Volume fraction] 26.6 % Low 36.0-46.0 [facility] Comment on above: Order Comment: Speci men Type: BLOOD SPECIMENOrdering Facility: [facility] Address: [address] [place] [address] Performed By: #### 5 7021-8 ####VILLARRE[facility] LABORATORYCLIA [id number] [place] [address] [place] Hemoglobin (Bld) [Mass/Vol] 8.8 g/dL Low 11.5-15.5 [facility] Comment on above: Order Comment: Speci men Type: BLOOD SPECIMENOrdering Facility: [facility] Address: [address] [place] [address] Performed By: #### 5 7021-8 ####VILLARRE[facility] LABORATORYCLIA [id number] [place] [address] [place] Immature granulocytes (Bld) [#/Vol] 0.32 10*3/uL High <0.10 [facility] Comment on above: Order Comment: Speci men Type: BLOOD SPECIMENOrdering Facility: [facility] Address: [address] [place] [address] Performed By: #### 5 7021-8 ####VILLARRE[facility] LABORATORYCLIA [id number] [address] [place] Immature granulocytes/100 WBC (Bld) 1.4 % Normal [facility] Comment on above: Order Comment: Speci men Type: BLOOD SPECIMENOrdering Facility: [facility] Address: [address] [place] [address] Performed By: #### 5 7021-8 ####VILLARRE[facility] LABORATORYCLIA [id number] [place] [address] [place] Lymphocytes (Bld) [#/Vol] 1.00 10*3/uL Normal 1.00-4.00 [facility] Comment on above: Order Comment: Speci men Type: BLOOD SPECIMENOrdering Facility: [facility] Address: [address] [place] [address] Performed By: #### 5 7021-8 ####VILLARRE[facility] LABORATORYCLIA [id number] [address] [place] Lymphocytes/100 WBC (Bld) 4.5 % Normal [facility] Comment on above: Order Comment: Speci men Type: BLOOD SPECIMENOrdering Facility: [facility] Address: [address] [place] [address] Performed By: #### 5 7021-8 ####VILLAR[facility] LABORATORYCLIA [id number] [address] MCH (RBC) [Entitic mass] 28.3 pg Normal 26.0-34.0 [facility] Comment on above: Order Comment: Speci men Type: BLOOD SPECIMENOrdering Facility: [facility] Address: [address] [place] [address] Performed By: #### 5 7021-8 ####V[facility] LABORATORYCLIA [id number] [address] [place] MCHC (RBC) [Mass/Vol] 33.1 g/dL Normal 30.5-36.0 [facility] Comment on above: Order Comment: Speci men Type: BLOOD SPECIMENOrdering Facility: [facility] Address: [address] [place] [address] Performed By: #### 5 7021-8 ####V[facility]AR[facility] LABORATORYCLIA [id number] [address] MCV (RBC) [Entitic vol] 85.5 fL Normal 80.0-100.0 [facility] Comment on above: Order Comment: Speci men Type: BLOOD SPECIMENOrdering Facility: [facility] Address: [address] [place] [address] Performed By: #### 5 7021-8 ####V[facility] LABORATORYCLIA [id number] [address] Monocytes (Bld) [#/Vol] 1.18 10*3/uL High <0.87 [facility] Comment on above: Order Comment: Speci men Type: BLOOD SPECIMENOrdering Facility: [facility] Address: [address] [place] [address] Performed By: #### 5 7021-8 ####VILL[facility] LABORATORYCLIA [id number] [place] [address] [place] Monocytes/100 WBC (Bld) 5.3 % Normal [facility] Comment on above: Order Comment: Speci men Type: BLOOD SPECIMENOrdering Facility: [facility] Address: [address] [place] [address] Performed By: #### 5 7021-8 ####VILLARRE[facility] LABORATORYCLIA [id number] [place] [address] [place] Neutrophils (Bld) [#/Vol] 19.49 10*3/uL High 1.45-7.50 [facility] Comment on above: Order Comment: Speci men Type: BLOOD SPECIMENOrdering Facility: [facility] Address: [address] [place] [address] Performed By: #### 5 7021-8 ####VILLAR[facility] LABORATORYCLIA [id number] [place] [address] [place] Neutrophils/100 WBC (Bld) 87.6 % Normal [facility] Comment on above: Order Comment: Speci men Type: BLOOD SPECIMENOrdering Facility: [facility] Address: [address] [place] [address] Performed By: #### 5 7021-8 ####VILLAR[facility] LABORATORYCLIA [id number] [place] [address] [place] Nucleated RBC (Bld) [#/Vol] 10*3/uL Normal <0.01 [facility] Comment on above: Order Comment: Speci men Type: BLOOD SPECIMENOrdering Facility: [facility] Address: [address] [place] [address] Performed By: #### 5 7021-8 ####VILL[facility] LABORATORYCLIA [id number] [place] [address] [place] Nucleated RBC/100 WBC (Bld) [Ratio] 0.0 /100 WBC Normal [facility] Comment on above: Order Comment: Speci men Type: BLOOD SPECIMENOrdering Facility: [facility] Address: [address] [place] [address] Performed By: #### 5 7021-8 ####[facility] LABORATORYCLIA [id number] [place] [address] [place] Platelet mean volume (Bld) [Entitic vol] 8.7 fL Low 9.0-12.7 [facility] Comment on above: Order Comment: Speci men Type: BLOOD SPECIMENOrdering Facility: [facility] Address: [address] [place] [address] Performed By: #### 5 7021-8 ####[facility] LABORATORYCLIA [id number] [place] [address] [place] Platelets (Bld) [#/Vol] 435 10*3/uL High 150-400 [facility] Comment on above: Order Comment: Speci men Type: BLOOD SPECIMENOrdering Facility: [facility] Address: [address] [place] [address] Performed By: #### 5 7021-8 ####[facility] LABORATORYCLIA [id number] [place] [address] [place] RBC (Bld) [#/Vol] 3.11 10*6/uL Low 3.90-5.20 [facility] Comment on above: Order Comment: Speci men Type: BLOOD SPECIMENOrdering Facility: [facility] Address: [address] [place] [address] Performed By: #### 5 7021-8 ####[facility] LABORATORYCLIA [id number] [place] [address] [place] WBC (Bld) [#/Vol] 22.25 10*3/uL High 3.70-11.00 [facility] Comment on above: Order Comment: Speci men Type: BLOOD SPECIMENOrdering Facility: [facility] Address: [address] [place] [address] Performed By: #### 5 7021-8 ####[facility] LABORATORYCLIA [id number] [address] [place] CONSULT PROGon 12-01-2024 CONSULT PROG Normal [facility] CONSULT PROG Normal [facility] CT ABD/PEL W IVCONon 025 CT ABD/PEL W IVCON Normal [facility] ECG COMPLETEon 12-01-2024 ECG COMPLETE Normal [facility] Hepatic function 2000 panelo n 12-01-2024 Albumin [Mass/Vol] 2.7 g/dL Low 3.9-4.9 [facility] Comment on above: Order Comment: Speci men Type: BLOOD SPECIMENOrdering Facility: [facility] Address: [address] [place] [address] Performed By: #### 1 9123-9, 57613-5, 63761-4, 06485-4, 24072-1 ####[facility] LABORATORYCLIA [id number] [place] [address] [place] ALP [Catalytic activity/Vol] 79 U/L Normal 34-123 [facility] Comment on above: Order Comment: Speci men Type: BLOOD SPECIMENOrdering Facility: [facility] Address: [address] [place] [address] Performed By: #### 1 9123-9, 97839-8, 22362-8, 00178-4, 28259-5 ####[facility] LABORATORYCLIA [id number] [address] [place] ALT [Catalytic activity/Vol] U/L Low 7-38 [facility] Comment on above: Order Comment: Speci men Type: BLOOD SPECIMENOrdering Facility: [facility] Address: [address] [place] [address] Performed By: #### 1 9123-9, 87000-4, 08309-7, 16852-8, 14379-5 ####[facility] LABORATORYCLIA [id number] [place] [id number] [facility] AST [Catalytic activity/Vol] 20 U/L Normal 13-35 [facility] Comment on above: Order Comment: Speci men Type: BLOOD SPECIMENOrdering Facility: [facility] Address: [address] [place] [address] Performed By: #### 1 9123-9, 53342-5, 68324-2, 64007-4, 37721-7 ####[facility] LABORATORYCLIA [id number] [address] Bilirubin [Mass/Vol] 0.2 mg/dL Normal 0.2-1.3 [facility] Comment on above: Order Comment: Speci men Type: BLOOD SPECIMENOrdering Facility: [facility] Address: [address] [place] [address] Performed By: #### 1 9123-9, 90869-8, 23307-1, 30456-4, 69765-8 ####[facility] LABORATORYCLIA [id number] [address] Bilirubin.conjugated [Mass/Vol] mg/dL Normal <0.3 [facility] Comment on above: Order Comment: Speci men Type: BLOOD SPECIMENOrdering Facility: [facility] Address: [address] [place] [address] Performed By: #### 1 9123-9, 34270-7, 61027-6, 21453-0, 09803-5 ####[facility] LABORATORYCLIA [id number] [address] Protein [Mass/Vol] 5.9 g/dL Low 6.3-8.0 [facility] Comment on above: Order Comment: Speci men Type: BLOOD SPECIMENOrdering Facility: [facility] Address: [address] [place] [address] Performed By: #### 1 9123-9, 30642-4, 16996-9, 35096-7, 42203-3 ####[facility] LABORATORYCLIA [id number] [address] OF [facility] MRI ANKLE WO IVCON LTon 11-14 MRI ANKLE WO IVCON LT Normal [facility] MRI FOOT/TOES WO IVCON LTon 12-01-2024 MRI FOOT/TOES WO IVCON LT Normal [facility] Magnesium SerPl-mCncon 12-01 Magnesium [Mass/Vol] 2.3 mg/dL Normal 1.7-2.3 [facility] Comment on above: Order Comment: Speci men Type: BLOOD SPECIMENOrdering Facility: [facility] Address: [address] [place] [address] Performed By: #### 1 9123-9, 87849-7, 15746-0, 85302-0, 41219-6 ####[facility] LABORATORYCLIA [id number] [address] NT-proBNP SerPl-mCncon 12-01 Natriuretic peptide.B prohormone N-Terminal [Mass/Vol] 1162 pg/mL High <450 [facility] Comment on above: Order Comment: Speci men Type: BLOOD SPECIMENOrdering Facility: [facility] Address: [address] [place] [address] Performed By: #### 1 9123-9, 96072-1, 86508-3, 07877-8, 76243-5 ####[facility] LABORATORYCLIA [id number] [address] Procalcitonin SerPl-ncon 0 12-01-2024 Procalcitonin [Mass/Vol] 0.24 ng/mL High <0.09 [facility] Comment on above: Order Comment: Speci [facility] Type: BLOOD SPECIMENOrdering Facility: [facility] Address: [address] [place] [address] Result Comment: For a guided interpretation of test results, please visit the Change in Procalcitonin Calculator, [email or web address]. Performed By: #### 1 9123-9, 82125-1, 37204-1, 73666-1, 89844-8 ####[facility] LABORATORYCLIA [id number] [address] SEPSIS LACTATEon 12-01-2024 Lactate [Moles/Vol] 1.5 mmol/L Normal 0.5-2.0 [facility] Comment on above: Order Comment: Speci [facility] Type: BLOOD SPECIMENOrdering Facility: [facility] Address: [address] [place] [address] Performed By: #### S LACT ####V[facility] LABORATORYCLIA [id number] [address] Sodium ?Tm Ur-sCncon 025 Sodium Unsp time (U) [Moles/Vol] 39 mmol/L Normal 14-216 [facility] Comment on above: Order Comment: Speci men Type: URINE SPECIMENOrdering Facility: [facility] Address: [address] [place] [address] Performed By: #### 3 5678-2 ####[facility] LABCLIA [id number] [address] [place]99[place]FZECDKLI[place] [address] [place] URINALYSIS, REFLEX MICROSCOP ICon 12-01-2024 Bacteria LM.HPF (Urine sed) [#/Area] Few Abnormal None Seen [facility] Comment on above: Order Comment: Speci men Type: URINE SPECIMENOrdering Facility: [facility] Address: [address] [place] [address] Performed By: #### L [id number] ####[facility] LABORATORYCLIA [id number] [address] [place] Bilirubin Ql (U) Negative Normal Negative [facility] Comment on above: Order Comment: Speci men Type: URINE SPECIMENOrdering Facility: [facility] Address: [address] [place] [address] Performed By: #### L [id number] ####VILLARREAL LABORATORYCLIA [id number] [address] [place] Clarity (Unsp spec) Clear Normal Clear [facility] Comment on above: Order Comment: Speci men Type: URINE SPECIMENOrdering Facility: [facility] Address: [address] [place] [address] Performed By: #### L [id number] ####VILLARREAL LABORATORYCLIA [id number] [address] [place] Color (U) Yellow Normal [facility] Comment on above: Order Comment: Speci men Type: URINE SPECIMENOrdering Facility: [facility] Address: [address] [place] [address] Performed By: #### L [id number] ####[facility] LABORATORYCLIA [id number] [address] [place] Epithelial cells LM.HPF (Urine sed) [#/Area] Few Normal [facility] Comment on above: Order Comment: Speci men Type: URINE SPECIMENOrdering Facility: [facility] Address: [address] [place] [address] Performed By: #### L [id number] ####[facility] LABORATORYCLIA [id number] [address] Glucose Test strip (U) [Mass/Vol] Trace Abnormal Negative [facility] Comment on above: Order Comment: Speci men Type: URINE SPECIMENOrdering Facility: [facility] Address: [address] [place] [address] Performed By: #### L [id number] ####VILLAR[facility] LABORATORYCLIA [id number] [address] [place] [facility] Hemoglobin Ql (U) Negative Normal Negative [facility] Comment on above: Order Comment: Speci men Type: URINE SPECIMENOrdering Facility: [facility] Address: [address] [place] [address] Performed By: #### L [id number] ####[facility] LABORATORYCLIA [id number] [address] [place] Ketones Ql (U) Trace Abnormal Negative [facility] Comment on above: Order Comment: Speci men Type: URINE SPECIMENOrdering Facility: [facility] Address: [address] [place] [address] Performed By: #### L [id number] ####[facility] LABORATORYCLIA [id number] [address] Leukocyte esterase Test strip Ql (U) Trace Abnormal Negative [facility] Comment on above: Order Comment: Speci men Type: URINE SPECIMENOrdering Facility: [facility] Address: [address] [place] [address] Performed By: #### L [id number] ####VILLARRE[facility] LABORATORYCLIA [id number] [place] [address] [place] Nitrite Ql (U) Negative Normal Negative [facility] Comment on above: Order Comment: Speci men Type: URINE SPECIMENOrdering Facility: [facility] Address: [address] [place] [address] Performed By: #### L [id number] ####[facility] LABORATORYCLIA [id number] [address] pH (U) 5.5 [pH] Normal 5.0-8.0 [facility] Comment on above: Order Comment: Speci men Type: URINE SPECIMENOrdering Facility: [facility] Address: [address] [place] [address] Performed By: #### L [id number] ####VILLAR[facility] LABORATORYCLIA [id number] [address] [place] Protein (U) [Mass/Vol] 2+ Abnormal Negative [facility] Comment on above: Order Comment: Speci men Type: URINE SPECIMENOrdering Facility: [facility] Address: [address] [place] [address] Performed By: #### L [id number] ####[facility] LABORATORYCLIA [id number] [address] [place] RBC LM.HPF (Urine sed) [#/Area] 0-3 /HPF Normal 0-3 /HPF [facility] Comment on above: Order Comment: Speci men Type: URINE SPECIMENOrdering Facility: [facility] Address: [address] [place] [address] Performed By: #### L [id number] ####VILLAR[facility] LABORATORYCLIA [id number] [address] Specific gravity (U) [Rel density] 1.025 Normal 1.005-1.030 [facility] Comment on above: Order Comment: Speci men Type: URINE SPECIMENOrdering Facility: [facility] Address: [address] [place] [address] Performed By: #### L [id number] ####VILLAR[facility] LABORATORYCLIA [id number] [address] Urobilinogen Ql (U) 0.2 EU/dL Normal 0.2-1.0 EU/dL [facility] Comment on above: Order Comment: Speci men Type: URINE SPECIMENOrdering Facility: [facility] Address: [address] [place] [address] Performed By: #### L [id number] ####VILLARREAL LABORATORYCLIA [id number] [address] [place] WBC LM.HPF (Urine sed) [#/Area] 6-10 /HPF Abnormal 0-5 /HPF [facility] Comment on above: Order Comment: Speci men Type: URINE SPECIMENOrdering Facility: [facility] Address: [address] [place] [address] Performed By: #### L [id number] ####[facility] LABORATORYCLIA [id number] [address] [place] Yeast.budding LM.HPF (Urine sed) [#/Area] Few Abnormal None Seen [facility] Comment on above: Order Comment: Speci men Type: URINE SPECIMENOrdering Facility: [facility] Address: [address] [place] [address] Performed By: #### L [id number] ####[facility] LABORATORYCLIA [id number] [place] [address] [place] ALLIED HEALTHon 11-30-2024 ALLIED HEALTH Normal [facility] Bacteria Bld Culton 11-30-19 25 Bacteria identified Cx Nom (Bld) CULTURE, BLOOD: No growth 5 days Normal [facility] Comment on above: Performed By: #### 6 00-7 ####[facility] LABCLIA [id number] [place] [address] [place] Bacteria identified Cx Nom (Bld) CULTURE, BLOOD: No growth 5 days Normal [facility] Comment on above: Performed By: #### 6 00-7 ####[facility] LABCLIA [id number] [place] [address] [place] Basic metabolic 2000 panelon 11-30-2024 Anion gap [Moles/Vol] 12 mmol/L Normal 8-15 [facility] Comment on above: Order Comment: Speci men Type: BLOOD SPECIMENOrdering Facility: [facility] Address: [address] [place] [address] Performed By: #### 2 4321-2, 43450-4 ####[facility] LABORATORYCLIA [id number] [place] [address] [place] Calcium [Mass/Vol] 9.1 mg/dL Normal 8.5-10.2 [facility] Comment on above: Order Comment: Speci men Type: BLOOD SPECIMENOrdering Facility: [facility] Address: [address] [place] [address] Performed By: #### 2 4321-2, ####VILLARRE[facility] LABORATORYCLIA [id number] [place] [address] [place] Chloride [Moles/Vol] 95 mmol/L Low 98-107 [facility] Comment on above: Order Comment: Speci men Type: BLOOD SPECIMENOrdering Facility: [facility] Address: [address] [place] [address] Performed By: #### 2 4321-2, ####V[facility]AR[facility] LABORATORYCLIA [id number] [place] [address] [place] CO2 [Moles/Vol] 25 mmol/L Normal 22-30 [facility] Comment on above: Order Comment: Speci men Type: BLOOD SPECIMENOrdering Facility: [facility] Address: [address] [place] [address] Performed By: #### 2 4321-2, ####VILLAR[facility] LABORATORYCLIA [id number] [place] [address] [place] Creatinine [Mass/Vol] 0.86 mg/dL Normal 0.58-0.96 [facility] [place] Comment on above: Order Comment: Speci men Type: BLOOD SPECIMENOrdering Facility: [facility] Address: [address] [place] [address] Performed By: #### 2 4321-2, ####VILLARRE[facility] LABORATORYCLIA [id number] [place] [address] [place] [facility] [place] Creatinine and Glomerular filtration rate.predicted panel (S/P/Bld) 65 mL/min/1.73m??? Normal >=60 [facility] Comment on above: Order Comment: Speci men Type: BLOOD SPECIMENOrdering Facility: [facility] Address: [address] [place] [address] Result Comment: Hilda mated Glomerular Filtration Rate [...] actual GFR. Performed By: #### 2 43211-15, ####[facility] LABORATORYCLIA [id number] [place] [address] [place] Glucose [Mass/Vol] 237 mg/dL High 74-99 [facility] Comment on above: Order Comment: Fan meade Type: BLOOD SPECIMENOrdering Facility: [facility] Address: [address] [place], [place] [address] Result Comment: The [place] [employer] (ADA) provides guidance for cutoff [...] Standards of Medical Care in Diabetes 2016, [place] [employer]. Diabetes Care. 2016.39(Suppl 1). Performed By: #### 2 4320-12, ####[facility] LABORATORYCLIA [id number] [place] [address] [place] Potassium [Moles/Vol] 4.2 mmol/L Normal 3.7-5.1 [facility] Comment on above: Order Comment: Fan meade Type: BLOOD SPECIMENOrdering Facility: [facility] Address: [address] [place] [address] Performed By: #### 2 43211-15, ####VILLARRE[facility] LABORATORYCLIA [id number] [place] [address] [place] Sodium [Moles/Vol] 132 mmol/L Low 136-144 [facility] Comment on above: Order Comment: Speci men Type: BLOOD SPECIMENOrdering Facility: [facility] Address: [address] [place] [address] Performed By: #### 2 4321-2, ####V[facility]ARRE[facility] LABORATORYCLIA [id number] [address] [place] [facility] Urea nitrogen [Mass/Vol] 26 mg/dL High 7-21 [facility] Comment on above: Order Comment: Speci men Type: BLOOD SPECIMENOrdering Facility: [facility] Address: [address] [place] [address] Performed By: #### 2 4321-2, ####VILLARRE[facility] LABORATORYCLIA [id number] [address] OF [facility] CASE MANAGEMon 11-30-2024 CASE MANAGEM [facility] CASE MANAGEM [facility] CBC W Auto Differential pane l (Bld)on 11-30-2024 Basophils (Bld) [#/Vol] 0.05 10*3/uL Normal <0.11 [facility] Comment on above: Order Comment: Speci men Type: BLOOD SPECIMENOrdering Facility: [facility] Address: [address] [place] [address] Performed By: #### 5 7021-8 ####V[facility] LABORATORYCLIA [id number] [address] [place] Basophils/100 WBC (Bld) 0.3 % Normal [facility] Comment on above: Order Comment: Speci men Type: BLOOD SPECIMENOrdering Facility: [facility] Address: [address] [place] [address] Performed By: #### 5 7021-8 ####V[facility] LABORATORYCLIA [id number] [address] [place] [facility] Differential cell count method Nom (Bld) Auto Normal [facility] Comment on above: Order Comment: Speci men Type: BLOOD SPECIMENOrdering Facility: [facility] Address: [address] [place] [address] Performed By: #### 5 7021-8 ####V[facility] LABORATORYCLIA [id number] [address] [place] Eosinophils (Bld) [#/Vol] 0.27 10*3/uL Normal <0.46 [facility] Comment on above: Order Comment: Speci men Type: BLOOD SPECIMENOrdering Facility: [facility] Address: [address] [place] [address] Performed By: #### 5 7021-8 ####V[facility] LABORATORYCLIA [id number] [address] [place] Eosinophils/100 WBC (Bld) 1.8 % Normal [facility] Comment on above: Order Comment: Speci men Type: BLOOD SPECIMENOrdering Facility: [facility] Address: [address] [place] [address] Performed By: #### 5 7021-8 ####V[facility] LABORATORYCLIA [id number] [address] [place] Erythrocyte distribution width (RBC) [Ratio] 15.6 % High 11.5-15.0 [facility] Comment on above: Order Comment: Speci men Type: BLOOD SPECIMENOrdering Facility: [facility] Address: [address] [place] [address] Performed By: #### 5 7021-8 ####V[facility] LABORATORYCLIA [id number] [address] [place] Hematocrit (Bld) [Volume fraction] 29.9 % Low 36.0-46.0 [facility] Comment on above: Order Comment: Speci men Type: BLOOD SPECIMENOrdering Facility: [facility] Address: [address] [place] [address] Performed By: #### 5 7021-8 ####V[facility] LABORATORYCLIA [id number] [address] [place] Hemoglobin (Bld) [Mass/Vol] 9.9 g/dL Low 11.5-15.5 [facility] Comment on above: Order Comment: Speci men Type: BLOOD SPECIMENOrdering Facility: [facility] Address: [address] [place] [address] Performed By: #### 5 7021-8 ####V[facility] LABORATORYCLIA [id number] [address] [place] Immature granulocytes (Bld) [#/Vol] 0.24 10*3/uL High <0.10 [facility] Comment on above: Order Comment: Speci men Type: BLOOD SPECIMENOrdering Facility: [facility] Address: [address] [place] [address] Performed By: #### 5 7021-8 ####V[facility] LABORATORYCLIA [id number] [address] Immature granulocytes/100 WBC (Bld) 1.6 % Normal [facility] Comment on above: Order Comment: Speci men Type: BLOOD SPECIMENOrdering Facility: [facility] Address: [address] [place] [address] Performed By: #### 5 7021-8 ####V[facility] LABORATORYCLIA [id number] [address] [place] Lymphocytes (Bld) [#/Vol] 0.92 10*3/uL Low 1.00-4.00 [facility] Comment on above: Order Comment: Speci men Type: BLOOD SPECIMENOrdering Facility: [facility] Address: [address] [place] [address] Performed By: #### 5 7021-8 ####V[facility] LABORATORYCLIA [id number] [address] Lymphocytes/100 WBC (Bld) 6.1 % Normal [facility] Comment on above: Order Comment: Speci men Type: BLOOD SPECIMENOrdering Facility: [facility] Address: [address] [place] [address] Performed By: #### 5 7021-8 ####V[facility] LABORATORYCLIA [id number] [place] [address] [place] MCH (RBC) [Entitic mass] 28.3 pg Normal 26.0-34.0 [facility] Comment on above: Order Comment: Speci men Type: BLOOD SPECIMENOrdering Facility: [facility] Address: [address] [place] [address] Performed By: #### 5 7021-8 ####V[facility] LABORATORYCLIA [id number] [place] [address] [place] MCHC (RBC) [Mass/Vol] 33.1 g/dL Normal 30.5-36.0 [facility] [place] Comment on above: Order Comment: Speci men Type: BLOOD SPECIMENOrdering Facility: [facility] Address: [address] [place] [address] Performed By: #### 5 7021-8 ####V[facility] LABORATORYCLIA [id number] [place] [address] [place] MCV (RBC) [Entitic vol] 85.4 fL Normal 80.0-100.0 [facility] Comment on above: Order Comment: Speci men Type: BLOOD SPECIMENOrdering Facility: [facility] Address: [address] [place] [address] Performed By: #### 5 7021-8 ####V[facility] LABORATORYCLIA [id number] [place] [address] [place] Monocytes (Bld) [#/Vol] 0.99 10*3/uL High <0.87 [facility] Comment on above: Order Comment: Speci men Type: BLOOD SPECIMENOrdering Facility: [facility] Address: [address] [place] [address] Performed By: #### 5 7021-8 ####V[facility] LABORATORYCLIA [id number] [address] Monocytes/100 WBC (Bld) 6.6 % Normal [facility] Comment on above: Order Comment: Speci men Type: BLOOD SPECIMENOrdering Facility: [facility] Address: [address] [place] [address] Performed By: #### 5 7021-8 ####V[facility] LABORATORYCLIA [id number] [place] [address] [place] Neutrophils (Bld) [#/Vol] 12.52 10*3/uL High 1.45-7.50 [facility] Comment on above: Order Comment: Speci men Type: BLOOD SPECIMENOrdering Facility: [facility] Address: [address] [place] [address] Performed By: #### 5 7021-8 ####V[facility] LABORATORYCLIA [id number] [address] Neutrophils/100 WBC (Bld) 83.6 % Normal [facility] Comment on above: Order Comment: Speci men Type: BLOOD SPECIMENOrdering Facility: [facility] Address: [address] [place] [address] Performed By: #### 5 7021-8 ####V[facility] LABORATORYCLIA [id number] [place] [address] [place] Nucleated RBC (Bld) [#/Vol] 10*3/uL Normal <0.01 [facility] Comment on above: Order Comment: Speci men Type: BLOOD SPECIMENOrdering Facility: [facility] Address: [address] [place] [address] Performed By: #### 5 7021-8 ####V[facility] LABORATORYCLIA [id number] [address] [place] [facility] Nucleated RBC/100 WBC (Bld) [Ratio] 0.0 /100 WBC Normal [facility] Comment on above: Order Comment: Speci men Type: BLOOD SPECIMENOrdering Facility: [facility] Address: [facility] [place] [address] Performed By: #### 5 7021-8 ####V[facility] LABORATORYCLIA [id number] [address] [place] Platelet mean volume (Bld) [Entitic vol] 8.6 fL Low 9.0-12.7 [facility] Comment on above: Order Comment: Speci men Type: BLOOD SPECIMENOrdering Facility: [facility] Address: [address] [place] [address] Performed By: #### 5 7021-8 ####V[facility] LABORATORYCLIA [id number] [address] [place] Platelets (Bld) [#/Vol] 436 10*3/uL High 150-400 [facility] Comment on above: Order Comment: Speci men Type: BLOOD SPECIMENOrdering Facility: [facility] Address: [address] [place] [address] Performed By: #### 5 7021-8 ####[facility] LABORATORYCLIA [id number] [place] [address] [place] RBC (Bld) [#/Vol] 3.50 10*6/uL Low 3.90-5.20 [facility] Comment on above: Order Comment: Speci men Type: BLOOD SPECIMENOrdering Facility: [facility] Address: [address] [place] [address] Performed By: #### 5 7021-8 ####[facility] LABORATORYCLIA [id number] [place] [address] [place] WBC (Bld) [#/Vol] 14.99 10*3/uL High 3.70-11.00 [facility] Comment on above: Order Comment: Speci men Type: BLOOD SPECIMENOrdering Facility: [facility] Address: [address] [place] [address] Performed By: #### 5 7021-8 ####[facility] LABORATORYCLIA [id number] [address] CONSULT PROGon 11-30-2024 [facility] Magnesium SerPl-mCncon 11-30 Magnesium [Mass/Vol] 1.6 mg/dL Low 1.7-2.3 [facility] Comment on above: Order Comment: Speci men Type: BLOOD SPECIMENOrdering Facility: [facility] Address: [address] [place] [address] Performed By: #### 2 4321-2, 15656-5 ####[facility] LABORATORYCLIA [id number] [address] [place] Urinalysis complete panel (U )on 11-30-2024 Bacteria LM.HPF (Urine sed) [#/Area] Few Abnormal None Seen [facility] Comment on above: Order Comment: Speci men Type: URINE SPECIMENOrdering Facility: [facility] Address: [address] [place] [address] Performed By: #### 2 4356-8 ####VILL[facility] LABORATORYCLIA [id number] [place] [address] [place] Bilirubin Ql (U) Negative Normal Negative [facility] Comment on above: Order Comment: Speci men Type: URINE SPECIMENOrdering Facility: [facility] Address: [address] [place] [address] Performed By: #### 2 4356-8 ####VILL[facility] LABORATORYCLIA [id number] [address] [place] Clarity (Unsp spec) Clear Normal Clear [facility] Comment on above: Order Comment: Speci men Type: URINE SPECIMENOrdering Facility: [facility] Address: [address] [place] [address] Performed By: #### 2 4356-8 ####V[facility] LABORATORYCLIA [id number] [address] Color (U) Yellow Normal Yellow [facility] Comment on above: Order Comment: Speci men Type: URINE SPECIMENOrdering Facility: [facility] Address: [address] [place] [address] Result Comment: Urin e received in non-preservative tube. Interpret results with caution. To ensure optimal and accurate results, transfer urine to the BD Vacutainer Plus urine preservative tube. Performed By: #### 2 4356-8 ####V[facility] LABORATORYCLIA [id number] [address] [place] Epithelial cells LM.HPF (Urine sed) [#/Area] Few Normal [facility] Comment on above: Order Comment: Speci men Type: URINE SPECIMENOrdering Facility: [facility] Address: [address] [place] [address] Performed By: #### 2 4356-8 ####VILLARREAL LABORATORYCLIA [id number] [place] [id number] [place] Glucose Test strip (U) [Mass/Vol] 1+ Abnormal Negative [facility] Comment on above: Order Comment: Speci men Type: URINE SPECIMENOrdering Facility: [facility] Address: [address] [place] [address] Performed By: #### 2 4356-8 ####VILL[facility] LABORATORYCLIA [id number] [place] [address] [place] Hemoglobin Ql (U) Negative Normal Negative [facility] Comment on above: Order Comment: Speci men Type: URINE SPECIMENOrdering Facility: [facility] Address: [address] [place] [address] Performed By: #### 2 4356-8 ####V[facility] LABORATORYCLIA [id number] [place] [address] [place] Ketones Ql (U) Trace Abnormal Negative [facility] Comment on above: Order Comment: Speci men Type: URINE SPECIMENOrdering Facility: [facility] Address: [address] [place] [address] Performed By: #### 2 4356-8 ####[facility] LABORATORYCLIA [id number] [place] [address] [place] Leukocyte esterase Test strip Ql (U) Trace Abnormal Negative [facility] Comment on above: Order Comment: Speci men Type: URINE SPECIMENOrdering Facility: [facility] Address: [address] [place] [address] Performed By: #### 2 4356-8 ####V[facility] LABORATORYCLIA [id number] [place] [address] [place] Nitrite Ql (U) Negative Normal Negative [facility] Comment on above: Order Comment: Speci men Type: URINE SPECIMENOrdering Facility: [facility] Address: [address] [place] [address] Performed By: #### 2 4356-8 ####V[facility] LABORATORYCLIA [id number] [place] [address] [place] pH (U) 6.5 [pH] Normal 5.0-8.0 [facility] Comment on above: Order Comment: Speci men Type: URINE SPECIMENOrdering Facility: [facility] Address: [address] [place] [address] Performed By: #### 2 4356-8 ####V[facility] LABORATORYCLIA [id number] [place] [address] [place] Protein (U) [Mass/Vol] 1+ Abnormal Negative [facility] Comment on above: Order Comment: Speci men Type: URINE SPECIMENOrdering Facility: [facility] Address: [address] [place] [address] Performed By: #### 2 4356-8 ####VILL[facility] LABORATORYCLIA [id number] [address] [place] RBC LM.HPF (Urine sed) [#/Area] 0-3 /HPF Normal 0-3 /HPF [facility] Comment on above: Order Comment: Speci men Type: URINE SPECIMENOrdering Facility: [facility] Address: [address] [place] [address] Performed By: #### 2 4356-8 ####V[facility] LABORATORYCLIA [id number] [address] Specific gravity (U) [Rel density] 1.010 Normal 1.005-1.030 [facility] Comment on above: Order Comment: Speci men Type: URINE SPECIMENOrdering Facility: [facility] Address: [address] [place] [address] Performed By: #### 2 4356-8 ####[facility] LABORATORYCLIA [id number] [address] Urobilinogen Ql (U) 0.2 EU/dL Normal 0.2-1.0 EU/dL [facility] Comment on above: Order Comment: Speci men Type: URINE SPECIMENOrdering Facility: [facility] Address: [address] [place] [address] Performed By: #### 2 4356-8 ####VILL[facility] LABORATORYCLIA [id number] [address] [place] WBC LM.HPF (Urine sed) [#/Area] 0-5 /HPF Normal 0-5 /HPF [facility] Comment on above: Order Comment: Speci men Type: URINE SPECIMENOrdering Facility: [facility] Address: [address] [place] [address] Performed By: #### 2 4356-8 ####VILL[facility] LABORATORYCLIA [id number] [address] [place] Yeast.budding LM.HPF (Urine sed) [#/Area] Few Abnormal None Seen [facility] Comment on above: Order Comment: Speci men Type: URINE SPECIMENOrdering Facility: [facility] Address: [address] [place] [address] [place] [address] Performed By: #### 2 4356-8 ####[facility] LABORATORYCLIA [id number] [place] [address] [place] XR CHEST 1V FRONTAL PORTon 0 11-30-2024 XR CHEST 1V FRONTAL PORT Normal [facility] Basic metabolic 2000 panelon 11-29-2024 Anion gap [Moles/Vol] 13 mmol/L Normal 8-15 [facility] Comment on above: Order Comment: Speci men Type: BLOOD SPECIMENOrdering Facility: [facility] Address: [address] [place] [address] Performed By: #### 2 4321-2, ####[facility] LABORATORYCLIA [id number] [place] [address] [place] Calcium [Mass/Vol] 8.8 mg/dL Normal 8.5-10.2 [facility] Comment on above: Order Comment: Speci men Type: BLOOD SPECIMENOrdering Facility: [facility] Address: [address] [place] [address] Performed By: #### 2 4321-2, ####VILLARREAL LABORATORYCLIA [id number] [place] [address] [place] Chloride [Moles/Vol] 95 mmol/L Low 98-107 [facility] Comment on above: Order Comment: Speci men Type: BLOOD SPECIMENOrdering Facility: [facility] Address: [address] [place] [address] Performed By: #### 2 4321-2, ####VILLARREAL LABORATORYCLIA [id number] [place] [address] [place] CO2 [Moles/Vol] 25 mmol/L Normal 22-30 [facility] Comment on above: Order Comment: Speci men Type: BLOOD SPECIMENOrdering Facility: [facility] Address: [address] [place] [address] Performed By: #### 2 4321-2, ####MARION LABORATORYCLIA [id number] [place] [address] [place] Creatinine [Mass/Vol] 0.80 mg/dL Normal 0.58-0.96 [facility] Comment on above: Order Comment: Fan meade Type: BLOOD SPECIMENOrdering Facility: [facility] Address: [address] [place] [address] Performed By: #### 2 4321-2, ####MARION LABORATORYCLIA [id number] [place] [address] [place] Creatinine and Glomerular filtration rate.predicted panel (S/P/Bld) 71 mL/min/1.73m??? Normal >=60 [facility] Comment on above: Order Comment: aKte halina Type: BLOOD SPECIMENOrdering Facility: [facility] Address: [address] [place] [address] Result Comment: Hilda mated Glomerular Filtration Rate [...] actual GFR. Performed By: #### 2 4321-2, ####MARION LABORATORYCLIA [id number] [place] [address] [place] Glucose [Mass/Vol] 287 mg/dL High 74-99 [facility] Comment on above: Order Comment: Fan meade Type: BLOOD SPECIMENOrdering Facility: [facility] Address: [address] [place] [address] Result Comment: The [place] [employer] (ADA) provides guidance for cutoff [...] Standards of Medical Care in Diabetes 2016, [place] [employer]. Diabetes Care. 2016.39(Suppl 1). Performed By: #### 2 4321-2, ####VILLARREAL LABORATORYCLIA [id number] [place] [address] [place] Potassium [Moles/Vol] 4.1 mmol/L Normal 3.7-5.1 [facility] Comment on above: Order Comment: Fan meade Type: BLOOD SPECIMENOrdering Facility: [facility] Address: [address] [place] [address] Performed By: #### 2 432-2, ####VILLARREAL LABORATORYCLIA [id number] [address] [place] [facility] Sodium [Moles/Vol] 133 mmol/L Low 136-144 [facility] Comment on above: Order Comment: Fan meade Type: BLOOD SPECIMENOrdering Facility: [facility] Address: [address] [place] [address] Performed By: #### 2 432-2, ####VILLARREAL LABORATORYCLIA [id number] [address] [place] Urea nitrogen [Mass/Vol] 30 mg/dL High 7-21 [facility] Comment on above: Order Comment: Fan meade Type: BLOOD SPECIMENOrdering Facility: [facility] Address: [address] [place] [address] Performed By: #### 2 2, ####VILLARREAL LABORATORYCLIA [id number] [place] [id number] [place] CASE MANAGEMon 11-29-2024 CASE MANAGEM Normal [facility] CASE MANAGEM Normal [facility] CBC panel Auto (Bld)on 11-29 Erythrocyte distribution width (RBC) [Ratio] 15.2 % High 11.5-15.0 [facility] Comment on above: Order Comment: Fan meade Type: BLOOD SPECIMENOrdering Facility: [facility] Address: [address] [place] [address] Performed By: #### 5 8410-2 ####VILLARREAL LABORATORYCLIA [id number] [address] Hematocrit (Bld) [Volume fraction] 27.9 % Low 36.0-46.0 [facility] Comment on above: Order Comment: Speci men Type: BLOOD SPECIMENOrdering Facility: [facility] Address: [address] [place] [address] Performed By: #### 5 8410-2 ####VILLARREAL LABORATORYCLIA [id number] [address] [place] Hemoglobin (Bld) [Mass/Vol] 9.3 g/dL Low 11.5-15.5 [facility] Comment on above: Order Comment: Speci men Type: BLOOD SPECIMENOrdering Facility: [facility] Address: [address] [place] [address] Performed By: #### 5 8410-2 ####VILLARREAL LABORATORYCLIA [id number] [address] MCH (RBC) [Entitic mass] 28.2 pg Normal 26.0-34.0 [facility] Comment on above: Order Comment: Speci men Type: BLOOD SPECIMENOrdering Facility: [facility] Address: [address] [place] [address] Performed By: #### 5 8410-2 ####VILLARREAL LABORATORYCLIA [id number] [address] MCHC (RBC) [Mass/Vol] 33.3 g/dL Normal 30.5-36.0 [facility] Comment on above: Order Comment: Speci men Type: BLOOD SPECIMENOrdering Facility: [facility] Address: [address] [place] [address] Performed By: #### 5 8410-2 ####VILLARREAL LABORATORYCLIA [id number] [address] MCV (RBC) [Entitic vol] 84.5 fL Normal 80.0-100.0 [facility] Comment on above: Order Comment: Speci men Type: BLOOD SPECIMENOrdering Facility: [facility] Address: [address] [place] [address] Performed By: #### 5 8410-2 ####VILLARREAL LABORATORYCLIA [id number] [place] [address] [place] Nucleated RBC (Bld) [#/Vol] 10*3/uL Normal <0.01 [facility] Comment on above: Order Comment: Speci men Type: BLOOD SPECIMENOrdering Facility: [facility] Address: [address] [place] [address] Performed By: #### 5 8410-2 ####VILLARREAL LABORATORYCLIA [id number] [place] [address] [place] Platelet mean volume (Bld) [Entitic vol] 8.8 fL Low 9.0-12.7 [facility] Comment on above: Order Comment: Speci men Type: BLOOD SPECIMENOrdering Facility: [facility] Address: [address] [place] [address] Performed By: #### 5 8410-2 ####VILLARREAL LABORATORYCLIA [id number] [address] [place] Platelets (Bld) [#/Vol] 425 10*3/uL High 150-400 [facility] Comment on above: Order Comment: Speci men Type: BLOOD SPECIMENOrdering Facility: [facility] Address: [address] [place] [address] Performed By: #### 5 8410-2 ####VILLARREAL LABORATORYCLIA [id number] [place] [address] [place] RBC (Bld) [#/Vol] 3.30 10*6/uL Low 3.90-5.20 [facility] Comment on above: Order Comment: Speci men Type: BLOOD SPECIMENOrdering Facility: [facility] Address: [address] [place] [address] Performed By: #### 5 8410-2 ####VILLARREAL LABORATORYCLIA [id number] [place] [address] [place] WBC (Bld) [#/Vol] 12.17 10*3/uL High 3.70-11.00 [facility] Comment on above: Order Comment: Speci men Type: BLOOD SPECIMENOrdering Facility: [facility] Address: [address] [place] [address] Performed By: #### 5 8410-2 ####MARION LABORATORYCLIA [id number] [place], [place] [address] [place] [address] [place] CONSULT PROGon 11-29-2024 CONSULT PROG Normal [facility] CONSULT PROG Normal [facility] Magnesium SerPl-mCncon 11-29 Magnesium [Mass/Vol] 1.4 mg/dL Low 1.7-2.3 [facility] Comment on above: Order Comment: Speci men Type: BLOOD SPECIMENOrdering Facility: [facility] Address: [address] [place] [address] Performed By: #### 2 4321-2, ####MARION LABORATORYCLIA [id number] [place] [address] [place] Basic metabolic 2000 panelon 11-28-2024 Anion gap [Moles/Vol] 14 mmol/L Normal 8-15 [facility] Comment on above: Order Comment: Speci men Type: BLOOD SPECIMENOrdering Facility: [facility] Address: [address] [place] [address] Performed By: #### 2 4321-2, , 2776-11 ####MARION LABORATORYCLIA [id number] [place] [address] [place] Calcium [Mass/Vol] 9.4 mg/dL Normal 8.5-10.2 [facility] Comment on above: Order Comment: Speci men Type: BLOOD SPECIMENOrdering Facility: [facility] Address: [address] [place] [address] Performed By: #### 2 4321-2, , 2776-11 ####VILLARREAL LABORATORYCLIA [id number] [address] [place] Chloride [Moles/Vol] 96 mmol/L Low 98-107 [facility] Comment on above: Order Comment: Speci men Type: BLOOD SPECIMENOrdering Facility: [facility] Address: [address] [place], [place] [address] [id number] Performed By: #### 2 4321-2, , 2776-11 ####VILLARREAL LABORATORYCLIA [id number] [place] [address] [place] CO2 [Moles/Vol] 25 mmol/L Normal 22-30 [facility] Comment on above: Order Comment: Speci men Type: BLOOD SPECIMENOrdering Facility: [facility] Address: [address] [place] [address] Performed By: #### 2 4321-2, , 2776-11 ####VILLARREAL LABORATORYCLIA [id number] [address] [place] Creatinine [Mass/Vol] 0.80 mg/dL Normal 0.58-0.96 [facility] Comment on above: Order Comment: Speci men Type: BLOOD SPECIMENOrdering Facility: [facility] Address: [address] [place] [address] Performed By: #### 2 432-2, , 2776-11 ####VILLARREAL LABORATORYCLIA [id number] [address] Creatinine and Glomerular filtration rate.predicted panel (S/P/Bld) 71 mL/min/1.73m??? Normal >=60 [facility] Comment on above: Order Comment: Speci men Type: BLOOD SPECIMENOrdering Facility: [facility] Address: [address] [place] [address] Result Comment: Hilda mated Glomerular Filtration Rate [...] #### 2 4321-2, , 2776-11 ####VILLARREAL LABORATORYCLIA [id number] [place] [address] [place] Glucose [Mass/Vol] 149 mg/dL High 74-99 [facility] Comment on above: Order Comment: Fan meade Type: BLOOD SPECIMENOrdering Facility: [facility] Address: [address] [place] [address] Result Comment: The [place] [employer] (ADA) provides guidance for cutoff [...] Standards of Medical Care in Diabetes 2016, [place] [employer]. Diabetes Care. 2016.39(Suppl 1). Performed By: #### 2 4321-2, , 2776-11 ####VILLARREAL LABORATORYCLIA [id number] [place] [address] [place] Potassium [Moles/Vol] 4.6 mmol/L Normal 3.7-5.1 [facility] Comment on above: Order Comment: Fan meade Type: BLOOD SPECIMENOrdering Facility: [facility] Address: [address] [place] [address] Performed By: #### 2 4321-2, , 2776-11 ####VILLARREAL LABORATORYCLIA [id number] [place] [address] [place] Sodium [Moles/Vol] 135 mmol/L Low 136-144 [facility] Comment on above: Order Comment: Fan meade Type: BLOOD SPECIMENOrdering Facility: [facility] Address: [address] [place] [address] Performed By: #### 2 4321-2, , 2776-11 ####VILLARREAL LABORATORYCLIA [id number] [place] [address] [place] Urea nitrogen [Mass/Vol] 28 mg/dL High 7-21 [facility] Comment on above: Order Comment: Fan men Type: BLOOD SPECIMENOrdering Facility: [facility] Address: [address] [place] [address] Performed By: #### 2 4321-2, 34039-5, 2777-1 ####VILLARREAL LABORATORYCLIA [id number] [place] [address] [place] CASE MANAGEMon 11-28-2024 CASE MANAGEM Normal [facility] CBC W Auto Differential pane l (Bld)on 11-28-2024 Basophils (Bld) [#/Vol] 0.05 10*3/uL Normal <0.11 [facility] Comment on above: Order Comment: Speci men Type: BLOOD SPECIMENOrdering Facility: [facility] Address: [address] [place] [address] Performed By: #### 5 7021-8 ####VILLARREAL LABORATORYCLIA [id number] [address] [place] Basophils/100 WBC (Bld) 0.5 % Normal [facility] Comment on above: Order Comment: Speci men Type: BLOOD SPECIMENOrdering Facility: [facility] Address: [address] [place] [address] Performed By: #### 5 7021-8 ####VILLARREAL LABORATORYCLIA [id number] [address] STATES [facility] Differential cell count method Nom (Bld) Auto Normal [facility] Comment on above: Order Comment: Speci men Type: BLOOD SPECIMENOrdering Facility: [facility] Address: [address] [place] [address] Performed By: #### 5 7021-8 ####VILLARREAL LABORATORYCLIA [id number] [place] [address] [place] Eosinophils (Bld) [#/Vol] 0.43 10*3/uL Normal <0.46 [facility] Comment on above: Order Comment: Speci men Type: BLOOD SPECIMENOrdering Facility: [facility] Address: [address] [place] [address] Performed By: #### 5 7021-8 ####VILLARREAL LABORATORYCLIA [id number] [place] [address] [place] Eosinophils/100 WBC (Bld) 3.9 % Normal [facility] Comment on above: Order Comment: Speci men Type: BLOOD SPECIMENOrdering Facility: [facility] Address: [address] [place] [address] Performed By: #### 5 7021-8 ####VILLARREAL LABORATORYCLIA [id number] [place] [address] [place] Erythrocyte distribution width (RBC) [Ratio] 15.3 % High 11.5-15.0 [facility] Comment on above: Order Comment: Speci men Type: BLOOD SPECIMENOrdering Facility: [facility] Address: [address] [place] [address] Performed By: #### 5 7021-8 ####VILLARREAL LABORATORYCLIA [id number] [place] [address] [place] Hematocrit (Bld) [Volume fraction] 32.2 % Low 36.0-46.0 [facility] Comment on above: Order Comment: Speci men Type: BLOOD SPECIMENOrdering Facility: [facility] Address: [address] [place] [address] Performed By: #### 5 7021-8 ####VILLARREAL LABORATORYCLIA [id number] [place] [address] [place] Hemoglobin (Bld) [Mass/Vol] 10.4 g/dL Low 11.5-15.5 [facility] Comment on above: Order Comment: Speci men Type: BLOOD SPECIMENOrdering Facility: [facility] Address: [address] [place] [address] Performed By: #### 5 7021-8 ####VILLARREAL LABORATORYCLIA [id number] [place] [address] [place] Immature granulocytes (Bld) [#/Vol] 0.17 10*3/uL High <0.10 [facility] Comment on above: Order Comment: Speci men Type: BLOOD SPECIMENOrdering Facility: [facility] Address: [address] [place] [address] Performed By: #### 5 7021-8 ####VILLARREAL LABORATORYCLIA [id number] [address] Immature granulocytes/100 WBC (Bld) 1.6 % Normal [facility] Comment on above: Order Comment: Speci men Type: BLOOD SPECIMENOrdering Facility: [facility] Address: [address] [place] [address] Performed By: #### 5 7021-8 ####VILLARREAL LABORATORYCLIA [id number] [place] [address] [place] Lymphocytes (Bld) [#/Vol] 0.95 10*3/uL Low 1.00-4.00 [facility] Comment on above: Order Comment: Speci men Type: BLOOD SPECIMENOrdering Facility: [facility] Address: [address] [place] [address] Performed By: #### 5 7021-8 ####VILLARREAL LABORATORYCLIA [id number] [address] Lymphocytes/100 WBC (Bld) 8.7 % Normal [facility] Comment on above: Order Comment: Speci men Type: BLOOD SPECIMENOrdering Facility: [facility] Address: [address] [place] [address] Performed By: #### 5 7021-8 ####VILLARREAL LABORATORYCLIA [id number] [place] [address] [place] MCH (RBC) [Entitic mass] 27.7 pg Normal 26.0-34.0 [facility] Comment on above: Order Comment: Speci men Type: BLOOD SPECIMENOrdering Facility: [facility] Address: [address] [place] [address] Performed By: #### 5 7021-8 ####VILLARREAL LABORATORYCLIA [id number] [address] [place] MCHC (RBC) [Mass/Vol] 32.3 g/dL Normal 30.5-36.0 [facility] Comment on above: Order Comment: Speci men Type: BLOOD SPECIMENOrdering Facility: [facility] Address: [address] [place] [address] Performed By: #### 5 7021-8 ####VILLARREAL LABORATORYCLIA [id number] [place] [address] [place] MCV (RBC) [Entitic vol] 85.6 fL Normal 80.0-100.0 [facility] Comment on above: Order Comment: Speci men Type: BLOOD SPECIMENOrdering Facility: [facility] Address: [address] [place] [address] Performed By: #### 5 7021-8 ####VILLARREAL LABORATORYCLIA [id number] [place] [address] [place] Monocytes (Bld) [#/Vol] 0.89 10*3/uL High <0.87 [facility] Comment on above: Order Comment: Speci men Type: BLOOD SPECIMENOrdering Facility: [facility] Address: [address] [place] [address] Performed By: #### 5 7021-8 ####VILLARREAL LABORATORYCLIA [id number] [address] [place] Monocytes/100 WBC (Bld) 8.1 % Normal [facility] Comment on above: Order Comment: Speci men Type: BLOOD SPECIMENOrdering Facility: [facility] Address: [address] [place] [address] Performed By: #### 5 7021-8 ####VILLARREAL LABORATORYCLIA [id number] [place] [address] [place] Neutrophils (Bld) [#/Vol] 8.45 10*3/uL High 1.45-7.50 [facility] Comment on above: Order Comment: Speci men Type: BLOOD SPECIMENOrdering Facility: [facility] Address: [address] [place] [address] Performed By: #### 5 7021-8 ####VILLARREAL LABORATORYCLIA [id number] [place] [address] [place] Neutrophils/100 WBC (Bld) 77.2 % Normal [facility] Comment on above: Order Comment: Speci men Type: BLOOD SPECIMENOrdering Facility: [facility] Address: [address] [place] [address] Performed By: #### 5 7021-8 ####VILLARREAL LABORATORYCLIA [id number] [place] [address] [place] Nucleated RBC (Bld) [#/Vol] 10*3/uL Normal <0.01 [facility] Comment on above: Order Comment: Speci men Type: BLOOD SPECIMENOrdering Facility: [facility] Address: [address] [place] [address] Performed By: #### 5 7021-8 ####VILLARREAL LABORATORYCLIA [id number] [place] [address] [place] Nucleated RBC/100 WBC (Bld) [Ratio] 0.0 /100 WBC Normal [facility] Comment on above: Order Comment: Speci men Type: BLOOD SPECIMENOrdering Facility: [facility] Address: [address] [place] [address] Performed By: #### 5 7021-8 ####VILLARREAL LABORATORYCLIA [id number] [place] [address] [place] Platelet mean volume (Bld) [Entitic vol] 9.0 fL Normal 9.0-12.7 [facility] Comment on above: Order Comment: Speci men Type: BLOOD SPECIMENOrdering Facility: [facility] Address: [address] [place] [address] Performed By: #### 5 7021-8 ####VILLARREAL LABORATORYCLIA [id number] [place] [address] [place] Platelets (Bld) [#/Vol] 413 10*3/uL High 150-400 [facility] Comment on above: Order Comment: Speci men Type: BLOOD SPECIMENOrdering Facility: [facility] Address: [address] [place] [address] Performed By: #### 5 7021-8 ####VILLARREAL LABORATORYCLIA [id number] [place] [address] [place] RBC (Bld) [#/Vol] 3.76 10*6/uL Low 3.90-5.20 [facility] Comment on above: Order Comment: Speci men Type: BLOOD SPECIMENOrdering Facility: [facility] Address: [address] [place] [address] Performed By: #### 5 7021-8 ####VILLARREAL LABORATORYCLIA [id number] [place] [address] [place] WBC (Bld) [#/Vol] 10.94 10*3/uL Normal 3.70-11.00 [facility] Comment on above: Order Comment: Speci men Type: BLOOD SPECIMENOrdering Facility: [facility] Address: [facility] [place] [id number] Performed By: #### 5 7021-8 ####MARION LABORATORYCLIA [id number] [place] [id number] [place] CONSULT PROGon 11-28-2024 CONSULT PROG Normal [facility] CONSULT PROG Normal [facility] Magnesium SerPl-mCncon 11-28 Magnesium [Mass/Vol] 1.9 mg/dL Normal 1.7-2.3 [facility] Comment on above: Order Comment: Speci men Type: BLOOD SPECIMENOrdering Facility: [facility] Address: [address] [place], [place] [address] [id number] Performed By: #### 2 4321-2, , 2776-11 ####MARION LABORATORYCLIA [id number] [place] [id number] [place] Phosphate SerPl-mCncon 11-28 Phosphate [Mass/Vol] 3.4 mg/dL Normal 2.7-4.8 [facility] Comment on above: Order Comment: Speci men Type: BLOOD SPECIMENOrdering Facility: [facility] Address: [address] [place], [place] [address] [id number] Performed By: #### 2 4321-2, , 27705-14 ####MARION LABORATORYCLIA [id number] [place] [address] [place] THERAPY NTon 11-28-2024 THERAPY NT [facility] THERAPY NT [facility] ALLIED HEALTHon 11-27-2024 ALLIED HEALTH [facility] ANES POSTPROC EVALon 025 ANES POSTPROC EVAL Normal [facility] ANES PRE-OPon 11-27-2024 ANES PRE-OP [facility] Bacteria Spec Anaerobe Culto n 11-27-2024 Bacteria identified Anaer cx Nom (Unsp spec) Negative Normal [facility] Comment on above: Performed By: #### 6 35-3, 6462-6 ####[facility] LABCLIA [id number] [address] [address] [place] Bacteria Wnd Culton 11-27-19 25 Bacteria identified Cx Nom (Wound) Abnormal [facility] Comment on above: Performed By: #### 6 35-3, 6462-6 ####[facility] LABCLIA [id number] [address] [address] [place] Basic metabolic 2000 panelon 11-27-2024 Anion gap [Moles/Vol] 13 mmol/L Normal 8-15 [facility] Comment on above: Order Comment: Speci men Type: BLOOD SPECIMENOrdering Facility: [facility] Address: [address] [place] [address] Performed By: #### 2 4321-2, , 2776-11 ####MAR[facility] LABORATORYCLIA [id number] [place] [address] [place] Calcium [Mass/Vol] 9.0 mg/dL Normal 8.5-10.2 [facility] Comment on above: Order Comment: Speci men Type: BLOOD SPECIMENOrdering Facility: [facility] Address: [address] [place] [address] Performed By: #### 2 4321-2, , 2776-11 ####MAR[facility] LABORATORYCLIA [id number] [place] [address] [place] Chloride [Moles/Vol] 94 mmol/L Low 98-107 [facility] Comment on above: Order Comment: Speci men Type: BLOOD SPECIMENOrdering Facility: [facility] Address: [address] [place] [address] Performed By: #### 2 4321-2, , 2776-11 ####VILLARREAL LABORATORYCLIA [id number] [place] [address] [place] CO2 [Moles/Vol] 25 mmol/L Normal 22-30 [facility] Comment on above: Order Comment: Fan meade Type: BLOOD SPECIMENOrdering Facility: [facility] Address: [address] [place] [address] Performed By: #### 2 4321-2, , 2776-11 ####VILLARREAL LABORATORYCLIA [id number] [place] [address] [place] Creatinine [Mass/Vol] 0.76 mg/dL Normal 0.58-0.96 [facility] Comment on above: Order Comment: Fan men Type: BLOOD SPECIMENOrdering Facility: [facility] Address: [address] [place] [address] Performed By: #### 2 4321-2, , 2776-11 ####VILLARREAL LABORATORYCLIA [id number] [place] [id number] [facility] Creatinine and Glomerular filtration rate.predicted panel (S/P/Bld) 75 mL/min/1.73m??? Normal >=60 [facility] Comment on above: Order Comment: Fan meade Type: BLOOD SPECIMENOrdering Facility: [facility] Address: [address] [place] [place] [address] Result Comment: Hilda mated Glomerular Filtration Rate [...] #### 2 4321-2, , 2776-11 ####VILLARREAL LABORATORYCLIA [id number] [place] [address] [place] Glucose [Mass/Vol] 251 mg/dL High 74-99 [facility] Comment on above: Order Comment: Fan halina Type: BLOOD SPECIMENOrdering Facility: [facility] Address: [address] [place] [address] Result Comment: The [place] Diabetes Association (ADA) provides guidance for cutoff [...] Standards of Medical Care in Diabetes 2016, [place] [employer]. Diabetes Care. 2016.39(Suppl 1). Performed By: #### 2 4321-2, , 2776-11 ####VILLARREAL LABORATORYCLIA [id number] [place] [address] [place] Potassium [Moles/Vol] 3.6 mmol/L Low 3.7-5.1 [facility] [place] Comment on above: Order Comment: Fan meade Type: BLOOD SPECIMENOrdering Facility: [facility] Address: [address] [place] [address] Performed By: #### 2 4321-2, , 2776-11 ####VILLARREAL LABORATORYCLIA [id number] [place] [address] [place] Sodium [Moles/Vol] 132 mmol/L Low 136-144 [facility] Comment on above: Order Comment: Fan meade Type: BLOOD SPECIMENOrdering Facility: [facility] Address: [address] [place] [address] Performed By: #### 2 4321-2, , 2776-11 ####VILLARREAL LABORATORYCLIA [id number] [place] [address] [place] Urea nitrogen [Mass/Vol] 29 mg/dL High 7-21 [facility] Comment on above: Order Comment: Fan meade Type: BLOOD SPECIMENOrdering Facility: [facility] Address: [address] [place] [address] Performed By: #### 2 4321-2, , 2776-11 ####VILLARREAL LABORATORYCLIA [id number] [address] [place] CASE MANAGEMon 11-27-2024 CASE MANAGEM Normal [facility] CBC panel Auto (Bld)on 11-27 Erythrocyte distribution width (RBC) [Ratio] 15.1 % High 11.5-15.0 [facility] Comment on above: Order Comment: Speci men Type: BLOOD SPECIMENOrdering Facility: [facility] Address: [address] [place] [address] Performed By: #### 5 8410-2 ####VILLARREAL LABORATORYCLIA [id number] [address] Hematocrit (Bld) [Volume fraction] 29.3 % Low 36.0-46.0 [facility] Comment on above: Order Comment: Speci men Type: BLOOD SPECIMENOrdering Facility: [facility] Address: [address] [place] [address] Performed By: #### 5 8410-2 ####VILLARREAL LABORATORYCLIA [id number] [address] Hemoglobin (Bld) [Mass/Vol] 9.9 g/dL Low 11.5-15.5 [facility] Comment on above: Order Comment: Speci men Type: BLOOD SPECIMENOrdering Facility: [facility] Address: [address] [place] [address] Performed By: #### 5 8410-2 ####VILLARREAL LABORATORYCLIA [id number] [address] MCH (RBC) [Entitic mass] 28.2 pg Normal 26.0-34.0 [facility] Comment on above: Order Comment: Speci men Type: BLOOD SPECIMENOrdering Facility: [facility] Address: [address] [place] [address] Performed By: #### 5 8410-2 ####VILLARREAL LABORATORYCLIA [id number] [address] MCHC (RBC) [Mass/Vol] 33.8 g/dL Normal 30.5-36.0 [facility] [place] Comment on above: Order Comment: Speci men Type: BLOOD SPECIMENOrdering Facility: [facility] Address: [address] [place], [place] [address] [address] Performed By: #### 5 8410-2 ####VILLARREAL LABORATORYCLIA [id number] [place] [address] [place] MCV (RBC) [Entitic vol] 83.5 fL Normal 80.0-100.0 [facility] Comment on above: Order Comment: Speci men Type: BLOOD SPECIMENOrdering Facility: [facility] Address: [address] [place] [address] Performed By: #### 5 8410-2 ####VILLARREAL LABORATORYCLIA [id number] [place] [address] [place] Nucleated RBC (Bld) [#/Vol] 10*3/uL Normal <0.01 [facility] Comment on above: Order Comment: Speci men Type: BLOOD SPECIMENOrdering Facility: [facility] Address: [address] [place] [address] Performed By: #### 5 8410-2 ####VILLARREAL LABORATORYCLIA [id number] [place] [address] [place] Platelet mean volume (Bld) [Entitic vol] 9.1 fL Normal 9.0-12.7 [facility] Comment on above: Order Comment: Speci men Type: BLOOD SPECIMENOrdering Facility: [facility] Address: [address] [place] [address] Performed By: #### 5 8410-2 ####VILLARREAL LABORATORYCLIA [id number] [place] [address] [place] Platelets (Bld) [#/Vol] 383 10*3/uL Normal 150-400 [facility] Comment on above: Order Comment: Speci men Type: BLOOD SPECIMENOrdering Facility: [facility] Address: [address] [place] [address] [place] [address] Performed By: #### 5 8410-2 ####VILLARREAL LABORATORYCLIA [id number] [place] [address] [place] RBC (Bld) [#/Vol] 3.51 10*6/uL Low 3.90-5.20 [facility] Comment on above: Order Comment: Speci men Type: BLOOD SPECIMENOrdering Facility: [facility] Address: [facility] [place] [address] Performed By: #### 5 8410-2 ####VILLARREAL LABORATORYCLIA [id number] [address] [place] WBC (Bld) [#/Vol] 11.65 10*3/uL High 3.70-11.00 [facility] Comment on above: Order Comment: Speci men Type: BLOOD SPECIMENOrdering Facility: [facility] Address: [facility] TAIDrgaan [place] [address] Performed By: #### 5 8410-2 ####VILLARREAL LABORATORYCLIA [id number] [address] [place] CONSULT PROGon 11-27-2024 CONSULT PROG [facility] Magnesium [Mass/Vol] 1.6 mg/dL Low 1.7-2.3 [facility] Comment on above: Order Comment: Speci men Type: BLOOD SPECIMENOrdering Facility: [facility] Address: [address] [place], [place] [address]Dragan [place] [address] Performed By: #### 2 4321-2, 04960-7, 2777-1 ####MAR[facility] LABORATORYCLIA [id number] [place] [address] [place] NUTRITIONon 11-27-2024 NUTRITION Normal [facility] OPERATIVE NOon 11-27-2024 OPERATIVE NO Normal [facility] Phosphate SerPl-ncon 11-27 Phosphate [Mass/Vol] 3.7 mg/dL Normal 2.7-4.8 [facility] Comment on above: Order Comment: Speci men Type: BLOOD SPECIMENOrdering Facility: [facility] Address: [facility] [place] [address] Performed By: #### 2 4321-2, 52963-8, 2777-1 ####VILLARREAL LABORATORYCLIA [id number] [place] [address] [place] THERAPY NTon 11-27-2024 THERAPY NT Normal [facility] US ABD RIGHT UPPER QUADRANTo n 11-27-2024 US ABD RIGHT UPPER QUADRANT Normal [facility] US ABD SPLEEN -NBon 11-27-19 US ABD SPLEEN -NB Normal [facility] Basic metabolic 2000 panelon 11-26-2024 Anion gap [Moles/Vol] 10 mmol/L Normal 8-15 [facility] Comment on above: Order Comment: Speci men Type: BLOOD SPECIMENOrdering Facility: [facility] Address: [address] [place] [address] Performed By: #### 2 4321-2, , 2776-11 ####MARION LABORATORYCLIA [id number] [place] [address] [place] Calcium [Mass/Vol] 9.2 mg/dL Normal 8.5-10.2 [facility] Comment on above: Order Comment: Speci men Type: BLOOD SPECIMENOrdering Facility: [facility] Address: [address] [place] [address] Performed By: #### 2 4321-2, , 2776-11 ####MARION LABORATORYCLIA [id number] [place] [address] [place] Chloride [Moles/Vol] 94 mmol/L Low 98-107 [facility] Comment on above: Order Comment: Speci men Type: BLOOD SPECIMENOrdering Facility: [facility] Address: [address] [place] [address] Performed By: #### 2 4321-2, , 2776-11 ####MARION LABORATORYCLIA [id number] [place] [id number] [place] CO2 [Moles/Vol] 28 mmol/L Normal 22-30 [facility] Comment on above: Order Comment: Speci men Type: BLOOD SPECIMENOrdering Facility: [facility] Address: [address] [place] [address] Performed By: #### 2 4321-2, , 2776-11 ####MARION LABORATORYCLIA [id number] [place] [address] [place] Creatinine [Mass/Vol] 0.98 mg/dL High 0.58-0.96 [facility] [place] Comment on above: Order Comment: Speci men Type: BLOOD SPECIMENOrdering Facility: [facility] Address: [address] [place] [address] Performed By: #### 2 4321-2, , 2776-11 ####VILLARREAL LABORATORYCLIA [id number] [place] [id number] [facility] [place] Creatinine and Glomerular filtration rate.predicted panel (S/P/Bld) 56 mL/min/1.73m??? Low >=60 [facility] Comment on above: Order Comment: Fan meade Type: BLOOD SPECIMENOrdering Facility: [facility] Address: [address] [place] [address] Result Comment: Hilda mated Glomerular Filtration Rate [...] #### 2 4321-2, , 2776-11 ####VILLARREAL LABORATORYCLIA [id number] [place] [id number] [place] Glucose [Mass/Vol] 244 mg/dL High 74-99 [facility] Comment on above: Order Comment: Fan meade Type: BLOOD SPECIMENOrdering Facility: [facility] Address: [address] [place] [address] Result Comment: The [place] [employer] Association (ADA) provides guidance for cutoff [...] Standards of Medical Care in Diabetes 2016, [place] [employer]. Diabetes Care. 2016.39(Suppl 1). Performed By: #### 2 4321-2, , 2776-11 ####VILLARREAL LABORATORYCLIA [id number] [place] [address] [place] Potassium [Moles/Vol] 4.4 mmol/L Normal 3.7-5.1 [facility] [place] Comment on above: Order Comment: Speci men Type: BLOOD SPECIMENOrdering Facility: [facility] Address: [address] [place] [address] Performed By: #### 2 4321-2, , 2776-11 ####VILLARREAL LABORATORYCLIA [id number] [place] [address] [place] Sodium [Moles/Vol] 132 mmol/L Low 136-144 [facility] Comment on above: Order Comment: Speci men Type: BLOOD SPECIMENOrdering Facility: [facility] Address: [address] [place] [address] Performed By: #### 2 4321-2, , 2776-11 ####MARION LABORATORYCLIA [id number] [place] [address] [place] Urea nitrogen [Mass/Vol] 37 mg/dL High 7-21 [facility] Comment on above: Order Comment: Speci men Type: BLOOD SPECIMENOrdering Facility: [facility] Address: [address] [place] [address] Performed By: #### 2 4321-2, , 2776-11 ####MARION LABORATORYCLIA [id number] [address] [place] CASE MANAGEMon 11-26-2024 CASE MANAGEM Normal [facility] CBC W Auto Differential pane l (Bld)on 11-26-2024 Basophils (Bld) [#/Vol] 0.04 10*3/uL Normal <0.11 [facility] Comment on above: Order Comment: Speci men Type: BLOOD SPECIMENOrdering Facility: [facility] Address: [address] [place] [address] Performed By: #### 5 7021-8 ####MAR[facility] LABORATORYCLIA [id number] [place] [address] [place] Basophils/100 WBC (Bld) 0.4 % Normal [facility] Comment on above: Order Comment: Speci men Type: BLOOD SPECIMENOrdering Facility: [facility] Address: [address] [place] [address] Performed By: #### 5 7021-8 ####VILLARREAL LABORATORYCLIA [id number] [place] [address] [place] Differential cell count method Nom (Bld) Auto Normal [facility] Comment on above: Order Comment: Speci men Type: BLOOD SPECIMENOrdering Facility: [facility] Address: [address] [place] [address] Performed By: #### 5 7021-8 ####VILLARREAL LABORATORYCLIA [id number] [place] [address] [place] Eosinophils (Bld) [#/Vol] 0.41 10*3/uL Normal <0.46 [facility] Comment on above: Order Comment: Speci men Type: BLOOD SPECIMENOrdering Facility: [facility] Address: [address] [place] [address] Performed By: #### 5 7021-8 ####VILLARREAL LABORATORYCLIA [id number] [address] STATES [facility] Eosinophils/100 WBC (Bld) 3.9 % Normal [facility] Comment on above: Order Comment: Speci men Type: BLOOD SPECIMENOrdering Facility: [facility] Address: [address] [place] [address] Performed By: #### 5 7021-8 ####VILLARREAL LABORATORYCLIA [id number] [place] [address] [place] Erythrocyte distribution width (RBC) [Ratio] 14.9 % Normal 11.5-15.0 [facility] Comment on above: Order Comment: Speci men Type: BLOOD SPECIMENOrdering Facility: [facility] Address: [address] [place] [address] Performed By: #### 5 7021-8 ####VILLARREAL LABORATORYCLIA [id number] [place] [address] [place] Hematocrit (Bld) [Volume fraction] 30.0 % Low 36.0-46.0 [facility] Comment on above: Order Comment: Speci men Type: BLOOD SPECIMENOrdering Facility: [facility] Address: [address] [place] [address] Performed By: #### 5 7021-8 ####VILLARREAL LABORATORYCLIA [id number] [place] [address] [place] Hemoglobin (Bld) [Mass/Vol] 10.1 g/dL Low 11.5-15.5 [facility] Comment on above: Order Comment: Speci men Type: BLOOD SPECIMENOrdering Facility: [facility] Address: [address] [place] [address] Performed By: #### 5 7021-8 ####VILLARREAL LABORATORYCLIA [id number] [place] [address] [place] Immature granulocytes (Bld) [#/Vol] 0.09 10*3/uL Normal <0.10 [facility] Comment on above: Order Comment: Speci men Type: BLOOD SPECIMENOrdering Facility: [facility] Address: [address] [place] [address] Performed By: #### 5 7021-8 ####VILLARREAL LABORATORYCLIA [id number] [place] [address] [place] Immature granulocytes/100 WBC (Bld) 0.9 % Normal [facility] Comment on above: Order Comment: Speci men Type: BLOOD SPECIMENOrdering Facility: [facility] Address: [address] [place] [address] Performed By: #### 5 7021-8 ####VILLARREAL LABORATORYCLIA [id number] [place] [address] [place] Lymphocytes (Bld) [#/Vol] 1.04 10*3/uL Normal 1.00-4.00 [facility] Comment on above: Order Comment: Speci men Type: BLOOD SPECIMENOrdering Facility: [facility] Address: [address] [place] [address] Performed By: #### 5 7021-8 ####VILLARREAL LABORATORYCLIA [id number] [address] [place] Lymphocytes/100 WBC (Bld) 9.9 % Normal [facility] Comment on above: Order Comment: Speci men Type: BLOOD SPECIMENOrdering Facility: [facility] Address: [address] [place] [address] Performed By: #### 5 7021-8 ####VILLARREAL LABORATORYCLIA [id number] [address] [place] MCH (RBC) [Entitic mass] 28.1 pg Normal 26.0-34.0 [facility] Comment on above: Order Comment: Speci men Type: BLOOD SPECIMENOrdering Facility: [facility] Address: [address] [place] [address] Performed By: #### 5 7021-8 ####VILLARREAL LABORATORYCLIA [id number] [address] [place] MCHC (RBC) [Mass/Vol] 33.7 g/dL Normal 30.5-36.0 [facility] Comment on above: Order Comment: Speci men Type: BLOOD SPECIMENOrdering Facility: [facility] Address: [address] [place] [address] Performed By: #### 5 7021-8 ####VILLARREAL LABORATORYCLIA [id number] [address] MCV (RBC) [Entitic vol] 83.3 fL Normal 80.0-100.0 [facility] Comment on above: Order Comment: Speci men Type: BLOOD SPECIMENOrdering Facility: [facility] Address: [address] [place] [address] Performed By: #### 5 7021-8 ####VILLARREAL LABORATORYCLIA [id number] [place] [address] [place] Monocytes (Bld) [#/Vol] 0.93 10*3/uL High <0.87 [facility] Comment on above: Order Comment: Speci men Type: BLOOD SPECIMENOrdering Facility: [facility] Address: [address] [place] [address] Performed By: #### 5 7021-8 ####VILLARREAL LABORATORYCLIA [id number] [place] [address] [place] Monocytes/100 WBC (Bld) 8.9 % Normal [facility] Comment on above: Order Comment: Speci men Type: BLOOD SPECIMENOrdering Facility: [facility] Address: [address] [place] [address] Performed By: #### 5 7021-8 ####VILLARREAL LABORATORYCLIA [id number] [place] [address] [place] Neutrophils (Bld) [#/Vol] 7.97 10*3/uL High 1.45-7.50 [facility] Comment on above: Order Comment: Speci men Type: BLOOD SPECIMENOrdering Facility: [facility] Address: [address] [place] [address] Performed By: #### 5 7021-8 ####VILLARREAL LABORATORYCLIA [id number] [place] [address] [place] Neutrophils/100 WBC (Bld) 76.0 % Normal [facility] Comment on above: Order Comment: Speci men Type: BLOOD SPECIMENOrdering Facility: [facility] Address: [address] [place] [address] Performed By: #### 5 7021-8 ####VILLARREAL LABORATORYCLIA [id number] [place] [address] [place] Nucleated RBC (Bld) [#/Vol] 10*3/uL Normal <0.01 [facility] Comment on above: Order Comment: Speci men Type: BLOOD SPECIMENOrdering Facility: [facility] Address: [address] [place] [address] Performed By: #### 5 7021-8 ####VILLARREAL LABORATORYCLIA [id number] [place] [address] [place] Nucleated RBC/100 WBC (Bld) [Ratio] 0.0 /100 WBC Normal [facility] Comment on above: Order Comment: Speci men Type: BLOOD SPECIMENOrdering Facility: [facility] Address: [address] [place] [address] Performed By: #### 5 7021-8 ####VILLARREAL LABORATORYCLIA [id number] [address] [place] Platelet mean volume (Bld) [Entitic vol] 9.0 fL Normal 9.0-12.7 [facility] Comment on above: Order Comment: Fan meade Type: BLOOD SPECIMENOrdering Facility: [facility] Address: [address] [place] [address] Performed By: #### 5 7021-8 ####MAR[facility] LABORATORYCLIA [id number] [place] [address] [place] Platelets (Bld) [#/Vol] 381 10*3/uL Normal 150-400 [facility] Comment on above: Order Comment: Fan meade Type: BLOOD SPECIMENOrdering Facility: [facility] Address: [address] [place] [address] Performed By: #### 5 7021-8 ####MAR[facility] LABORATORYCLIA [id number] [address] [place] RBC (Bld) [#/Vol] 3.60 10*6/uL Low 3.90-5.20 [facility] Comment on above: Order Comment: Fan meade Type: BLOOD SPECIMENOrdering Facility: [facility] Address: [address] [place] [address] Performed By: #### 5 7021-8 ####MAR[facility] LABORATORYCLIA [id number] [address] [place] WBC (Bld) [#/Vol] 10.48 10*3/uL Normal 3.70-11.00 [facility] Comment on above: Order Comment: Fan meade Type: BLOOD SPECIMENOrdering Facility: [facility] Address: [address] [place] [address] Performed By: #### 5 7021-8 ####MARION LABORATORYCLIA [id number] [address] OF [facility] Arti 11-26-2024 JACINTA Telephone (HEMAST) YUSUF MEDINA ([id number]) 1935 [address] Date Time Provider Department 11/26/24 GRUPO MENDEZ During your visit today, we recorded the following information about you: Carlitos Sue 11/26/2024 9:54 AM Signed 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 Pt is still inpatient. When she is discharged she will be sent to a rehab and will not be able to make appts. Any time soon. Please advise for further requirements. Grupo Mendez MD 11/26/2024 5:[address] Mendez reviewed labs from [facility]. Dr. Mendez recommended for patient to be [...] needed for sedation. - blood sugar diagnostic (SportsHedgeTOUCH ULTRA TEST) test strip Test blood sugar [...] this patient by: CAREGIVER José Miguel Swanson [facility] Problem List As Of Date [...] (capsule) sprain (more content not included)... Normal [facility] CONSULT PROGon 11-26-2024 CONSULT PROG [facility] CONSULT PROG [facility] CONSULT PROG [facility] CT ABD/PEL WO IVCONon 2024 CT ABD/PEL WO IVCON Normal [facility] Lipase SerPl-cCncon 11-26-19 25 Lipase [Catalytic activity/Vol] 22 U/L Normal 16-61 [facility] Comment on above: Order Comment: Speci men Type: BLOOD SPECIMENOrdering Facility: [facility] Address: [address] [place] [address] Performed By: #### 3 040-3 ####MARION LABORATORYCLIA [id number] [place] [id number] [place] Magnesium SerPl-mCncon 11-26 Magnesium [Mass/Vol] 2.0 mg/dL Normal 1.7-2.3 [facility] Comment on above: Order Comment: Speci men Type: BLOOD SPECIMENOrdering Facility: [facility] Address: [address] [place] [address] Performed By: #### 2 4321-2, 36701-5, 2777-1 ####MARION LABORATORYCLIA [id number] [place] [id number] [place] NURSING [facility]on 11-26-2024 [facility]ate SerPl-mCncon 11-26 Phosphate [Mass/Vol] 3.0 mg/dL Normal 2.7-4.8 [facility] Comment on above: Order Comment: Speci men Type: BLOOD SPECIMENOrdering Facility: [facility] Address: [address] [place] [address] Performed By: #### 2 4321-2, 83013-7, 2777-1 ####MARION LABORATORYCLIA [id number] [place] [id number] [place] Basic metabolic 2000 panelon 11-25-2024 Anion gap [Moles/Vol] 12 mmol/L Normal 8-15 [facility] Comment on above: Order Comment: Speci men Type: BLOOD SPECIMENOrdering Facility: [facility] Address: [address] [place] [address] Performed By: #### 2 4320-2, ####VILLARREAL LABORATORYCLIA [id number] [place] [address] [place] Calcium [Mass/Vol] 8.9 mg/dL Normal 8.5-10.2 [facility] Comment on above: Order Comment: Speci men Type: BLOOD SPECIMENOrdering Facility: [facility] Address: [facility] [place] [address] Performed By: #### 2 4320-2, ####VILLARREAL LABORATORYCLIA [id number] [place] [address] [place] Chloride [Moles/Vol] 94 mmol/L Low 98-107 [facility] Comment on above: Order Comment: Speci men Type: BLOOD SPECIMENOrdering Facility: [facility] Address: [address] [place] [address] Performed By: #### 2 2, ####VILLARREAL LABORATORYCLIA [id number] [place] [address] [place] CO2 [Moles/Vol] 24 mmol/L Normal 22-30 [facility] Comment on above: Order Comment: Speci men Type: BLOOD SPECIMENOrdering Facility: [facility] Address: [facility] [place] [address] Performed By: #### 2 2, ####VILLARREAL LABORATORYCLIA [id number] [place] [address] [place] Creatinine [Mass/Vol] 0.79 mg/dL Normal 0.58-0.96 [facility] Comment on above: Order Comment: Speci men Type: BLOOD SPECIMENOrdering Facility: [facility] Address: [address] [place] [address] Performed By: #### 2 432-2, ####VILLARREAL LABORATORYCLIA [id number] [place] [address] [place] Creatinine and Glomerular filtration rate.predicted panel (S/P/Bld) 72 mL/min/1.73m??? Normal >=60 [facility] Comment on above: Order Comment: Fan meade Type: BLOOD SPECIMENOrdering Facility: [facility] Address: [address] [place] [address] Result Comment: Hilda mated Glomerular Filtration Rate [...] Performed By: #### 2 4321-2, ####VILLARREAL LABORATORYCLIA [id number] [place] [address] [place] Glucose [Mass/Vol] 251 mg/dL High 74-99 [facility] Comment on above: Order Comment: Fan meade Type: BLOOD SPECIMENOrdering Facility: [facility] Address: [address] [place] [address] Result Comment: The [place] [employer] (ADA) provides guidance for cutoff [...] Standards of Medical Care in Diabetes 2016, [place] [employer]. Diabetes Care. 2016.39(Suppl 1). Performed By: #### 2 4321-2, ####MARION LABORATORYCLIA [id number] [place] [address] [place] Potassium [Moles/Vol] 3.9 mmol/L Normal 3.7-5.1 [facility] [place] Comment on above: Order Comment: Fan meade Type: BLOOD SPECIMENOrdering Facility: [facility] Address: [address] [place] [address] Performed By: #### 2 4321-2, ####VILLARREAL LABORATORYCLIA [id number] [address] [place] Sodium [Moles/Vol] 130 mmol/L Low 136-144 [facility] Comment on above: Order Comment: Speci men Type: BLOOD SPECIMENOrdering Facility: [facility] Address: [address] [place] [address] Performed By: #### 2 4321-2, ####VILLARREAL LABORATORYCLIA [id number] [address] [place] [facility] Urea nitrogen [Mass/Vol] 32 mg/dL High 7-21 [facility] Comment on above: Order Comment: Speci men Type: BLOOD SPECIMENOrdering Facility: [facility] Address: [address] [place] [address] Performed By: #### 2 432-2, ####VILLARREAL LABORATORYCLIA [id number] [address] CBC W Auto Differential pane l (Bld)on 11-25-2024 Basophils (Bld) [#/Vol] 0.05 10*3/uL Normal <0.11 [facility] Comment on above: Order Comment: Speci men Type: BLOOD SPECIMENOrdering Facility: [facility] Address: [address] [place] [address] Performed By: #### 5 7021-8 ####VILLARREAL LABORATORYCLIA [id number] [address] Basophils/100 WBC (Bld) 0.4 % Normal [facility] Comment on above: Order Comment: Speci men Type: BLOOD SPECIMENOrdering Facility: [facility] Address: [address] [place] [address] Performed By: #### 5 7021-8 ####VILLARREAL LABORATORYCLIA [id number] [address] Differential cell count method Nom (Bld) Auto Normal [facility] Comment on above: Order Comment: Speci men Type: BLOOD SPECIMENOrdering Facility: [facility] Address: [address] [place] [address] Performed By: #### 5 7021-8 ####VILLARREAL LABORATORYCLIA [id number] [place] [address] [place] Eosinophils (Bld) [#/Vol] 0.11 10*3/uL Normal <0.46 [facility] Comment on above: Order Comment: Speci men Type: BLOOD SPECIMENOrdering Facility: [facility] Address: [address] [place] [address] Performed By: #### 5 7021-8 ####VILLARREAL LABORATORYCLIA [id number] [place] [address] [place] Eosinophils/100 WBC (Bld) 0.8 % Normal [facility] Comment on above: Order Comment: Speci men Type: BLOOD SPECIMENOrdering Facility: [facility] Address: [address] [place] [address] Performed By: #### 5 7021-8 ####VILLARREAL LABORATORYCLIA [id number] [address] [place] Erythrocyte distribution width (RBC) [Ratio] 14.9 % Normal 11.5-15.0 [facility] Comment on above: Order Comment: Speci men Type: BLOOD SPECIMENOrdering Facility: [facility] Address: [address] [place] [address] Performed By: #### 5 7021-8 ####VILLARREAL LABORATORYCLIA [id number] [address] [place] Hematocrit (Bld) [Volume fraction] 31.8 % Low 36.0-46.0 [facility] Comment on above: Order Comment: Speci men Type: BLOOD SPECIMENOrdering Facility: [facility] Address: [address] [place] [address] Performed By: #### 5 7021-8 ####VILLARREAL LABORATORYCLIA [id number] [address] [place] Hemoglobin (Bld) [Mass/Vol] 10.5 g/dL Low 11.5-15.5 [facility] Comment on above: Order Comment: Speci men Type: BLOOD SPECIMENOrdering Facility: [facility] Address: [address] [place] [address] Performed By: #### 5 7021-8 ####VILLARREAL LABORATORYCLIA [id number] [address] [place] Immature granulocytes (Bld) [#/Vol] 0.09 10*3/uL Normal <0.10 [facility] Comment on above: Order Comment: Speci men Type: BLOOD SPECIMENOrdering Facility: [facility] Address: [address] [place] [address] Performed By: #### 5 7021-8 ####VILLARREAL LABORATORYCLIA [id number] [address] Immature granulocytes/100 WBC (Bld) 0.6 % Normal [facility] Comment on above: Order Comment: Speci men Type: BLOOD SPECIMENOrdering Facility: [facility] Address: [address] [place] [address] Performed By: #### 5 7021-8 ####VILLARREAL LABORATORYCLIA [id number] [address] [place] [facility] Lymphocytes (Bld) [#/Vol] 1.18 10*3/uL Normal 1.00-4.00 [facility] Comment on above: Order Comment: Speci men Type: BLOOD SPECIMENOrdering Facility: [facility] Address: [address] [place] [address] Performed By: #### 5 7021-8 ####VILLARREAL LABORATORYCLIA [id number] [address] Lymphocytes/100 WBC (Bld) 8.5 % Normal [facility] Comment on above: Order Comment: Speci men Type: BLOOD SPECIMENOrdering Facility: [facility] Address: [address] [place] [address] Performed By: #### 5 7021-8 ####VILLARREAL LABORATORYCLIA [id number] [address] MCH (RBC) [Entitic mass] 27.8 pg Normal 26.0-34.0 [facility] Comment on above: Order Comment: Speci men Type: BLOOD SPECIMENOrdering Facility: [facility] Address: [address] [place] [address] Performed By: #### 5 7021-8 ####VILLARREAL LABORATORYCLIA [id number] [place] [address] [place] MCHC (RBC) [Mass/Vol] 33.0 g/dL Normal 30.5-36.0 [facility] [place] Comment on above: Order Comment: Speci men Type: BLOOD SPECIMENOrdering Facility: [facility] Address: [address] [place] [address] Performed By: #### 5 7021-8 ####VILLARREAL LABORATORYCLIA [id number] [place] [address] [place] MCV (RBC) [Entitic vol] 84.1 fL Normal 80.0-100.0 [facility] Comment on above: Order Comment: Speci men Type: BLOOD SPECIMENOrdering Facility: [facility] Address: [address] [place] [address] Performed By: #### 5 7021-8 ####VILLARREAL LABORATORYCLIA [id number] [place] [address] [place] Monocytes (Bld) [#/Vol] 1.11 10*3/uL High <0.87 [facility] Comment on above: Order Comment: Speci men Type: BLOOD SPECIMENOrdering Facility: [facility] Address: [address] [place] [address] Performed By: #### 5 7021-8 ####VILLARREAL LABORATORYCLIA [id number] [place] [address] [place] Monocytes/100 WBC (Bld) 8.0 % Normal [facility] Comment on above: Order Comment: Speci men Type: BLOOD SPECIMENOrdering Facility: [facility] Address: [address] [place] [address] Performed By: #### 5 7021-8 ####VILLARREAL LABORATORYCLIA [id number] [place] [address] [place] Neutrophils (Bld) [#/Vol] 11.41 10*3/uL High 1.45-7.50 [facility] Comment on above: Order Comment: Speci men Type: BLOOD SPECIMENOrdering Facility: [facility] Address: [address] [place] [address] Performed By: #### 5 7021-8 ####VILLARREAL LABORATORYCLIA [id number] [place] [address] [place] Neutrophils/100 WBC (Bld) 81.7 % Normal [facility] Comment on above: Order Comment: Speci men Type: BLOOD SPECIMENOrdering Facility: [facility] Address: [address] [place] [address] Performed By: #### 5 7021-8 ####VILLARREAL LABORATORYCLIA [id number] [place] [address] [place] Nucleated RBC (Bld) [#/Vol] 10*3/uL Normal <0.01 [facility] Comment on above: Order Comment: Speci men Type: BLOOD SPECIMENOrdering Facility: [facility] Address: [address] [place] [address] Performed By: #### 5 7021-8 ####VILLARREAL LABORATORYCLIA [id number] [place] [address] [place] Nucleated RBC/100 WBC (Bld) [Ratio] 0.0 /100 WBC Normal [facility] Comment on above: Order Comment: Speci men Type: BLOOD SPECIMENOrdering Facility: [facility] Address: [address] [place] [address] Performed By: #### 5 7021-8 ####VILLARREAL LABORATORYCLIA [id number] [place] [address] [place] Platelet mean volume (Bld) [Entitic vol] 9.4 fL Normal 9.0-12.7 [facility] Comment on above: Order Comment: Speci men Type: BLOOD SPECIMENOrdering Facility: [facility] Address: [address] [place] [address] Performed By: #### 5 7021-8 ####VILLARREAL LABORATORYCLIA [id number] [place] [address] [place] Platelets (Bld) [#/Vol] 358 10*3/uL Normal 150-400 [facility] Comment on above: Order Comment: Speci men Type: BLOOD SPECIMENOrdering Facility: [facility] Address: [address] [place] [id number] Performed By: #### 5 7021-8 ####VILLARREAL LABORATORYCLIA [id number] [address] RBC (Bld) [#/Vol] 3.78 10*6/uL Low 3.90-5.20 [facility] Comment on above: Order Comment: Speci men Type: BLOOD SPECIMENOrdering Facility: [facility] Address: [address] [place] [address] Performed By: #### 5 7021-8 ####VILLARREAL LABORATORYCLIA [id number] [place] [id number] [facility] WBC (Bld) [#/Vol] 13.95 10*3/uL High 3.70-11.00 [facility] Comment on above: Order Comment: Speci men Type: BLOOD SPECIMENOrdering Facility: [facility] Address: [address] [place] [address] Performed By: #### 5 7021-8 ####VILLARREAL LABORATORYCLIA [id number] [address] CONSULT PROGon 11-25-2024 CONSULT PROG Normal [facility] CONSULT PROG Normal [facility] PROThe [facility] Magnesium SerPl-mCncon 11-25 Magnesium [Mass/Vol] 1.1 mg/dL Low 1.7-2.3 [facility] Comment on above: Order Comment: Speci men Type: BLOOD SPECIMENOrdering Facility: [facility] Address: [address] [place], [place] [address] Performed By: #### 2 4321-2, 16362-8 ####VILLARREAL LABORATORYCLIA [id number] [place] [id number] [facility] [place] Basic metabolic 2000 panelon 11-24-2024 Anion gap [Moles/Vol] 14 mmol/L Normal 8-15 [facility] [place] Comment on above: Order Comment: Speci men Type: BLOOD SPECIMENOrdering Facility: [facility] Address: [address] [place] [address] Performed By: #### 2 4321-2 ####VILLARREAL LABORATORYCLIA [id number] [place] [address] [place] Calcium [Mass/Vol] 8.8 mg/dL Normal 8.5-10.2 [facility] Comment on above: Order Comment: Speci men Type: BLOOD SPECIMENOrdering Facility: [facility] Address: [address] [place] [address] Performed By: #### 2 4321-2 ####VILLARREAL LABORATORYCLIA [id number] [place] [address] [place] Chloride [Moles/Vol] 95 mmol/L Low 98-107 [facility] Comment on above: Order Comment: Speci men Type: BLOOD SPECIMENOrdering Facility: [facility] Address: [address] [place] [address] Performed By: #### 2 4321-2 ####VILLARREAL LABORATORYCLIA [id number] [place] [address] [place] CO2 [Moles/Vol] 24 mmol/L Normal 22-30 [facility] Comment on above: Order Comment: Speci men Type: BLOOD SPECIMENOrdering Facility: [facility] Address: [address] [place] [address] Performed By: #### 2 4321-2 ####VILLARREAL LABORATORYCLIA [id number] [address] [place] Creatinine [Mass/Vol] 0.92 mg/dL Normal 0.58-0.96 [facility] [place] Comment on above: Order Comment: Speci men Type: BLOOD SPECIMENOrdering Facility: [facility] Address: [address] [place] [address] Performed By: #### 2 4321-2 ####VILLARREAL LABORATORYCLIA [id number] [address] Creatinine and Glomerular filtration rate.predicted panel (S/P/Bld) 60 mL/min/1.73m??? Normal >=60 [facility] Comment on above: Order Comment: Speci men Type: BLOOD SPECIMENOrdering Facility: [facility] Address: [address] [place] [address] Result Comment: Hilda mated Glomerular Filtration Rate [...] actual GFR. Performed By: #### 2 4321-2 ####MARION LABORATORYCLIA [id number] [place] [id number] [place] Glucose [Mass/Vol] 202 mg/dL High 74-99 [facility] Comment on above: Order Comment: Fan men Type: BLOOD SPECIMENOrdering Facility: [facility] Address: [address] [place] [address] Result Comment: The [place] [employer] (ADA) provides guidance for cutoff [...] Standards of Medical Care in Diabetes 2016, [place] [employer]. Diabetes Care. 2016.39(Suppl 1). Performed By: #### 2 4321-2 ####MARION LABORATORYCLIA [id number] [place] [id number] [place] Potassium [Moles/Vol] 4.0 mmol/L Normal 3.7-5.1 [facility] [place] Comment on above: Order Comment: Katei men Type: BLOOD SPECIMENOrdering Facility: [facility] Address: [address] [place] [address] Performed By: #### 2 4321-2 ####VILLARREAL LABORATORYCLIA [id number] [place] [id number] [place] Sodium [Moles/Vol] 133 mmol/L Low 136-144 [facility] Comment on above: Order Comment: Speci men Type: BLOOD SPECIMENOrdering Facility: [facility] Address: [address] [place] [address] Performed By: #### 2 4321-2 ####VILLARREAL LABORATORYCLIA [id number] [address] [place] [facility] Urea nitrogen [Mass/Vol] 39 mg/dL High 7-21 [facility] Comment on above: Order Comment: Speci men Type: BLOOD SPECIMENOrdering Facility: [facility] Address: [address] [place] [address] Performed By: #### 2 4321-2 ####VILLARREAL LABORATORYCLIA [id number] [address] [place] CBC panel Auto (Bld)on 11-24 Erythrocyte distribution width (RBC) [Ratio] 15.2 % High 11.5-15.0 [facility] Comment on above: Order Comment: Speci men Type: BLOOD SPECIMENOrdering Facility: [facility] Address: [address] [place] [address] Performed By: #### 5 8410-2 ####VILLARREAL LABORATORYCLIA [id number] [address] Hematocrit (Bld) [Volume fraction] 29.3 % Low 36.0-46.0 [facility] Comment on above: Order Comment: Speci men Type: BLOOD SPECIMENOrdering Facility: [facility] Address: [address] [place] [address] Performed By: #### 5 8410-2 ####VILLARREAL LABORATORYCLIA [id number] [address] [place] [facility] Hemoglobin (Bld) [Mass/Vol] 9.7 g/dL Low 11.5-15.5 [facility] Comment on above: Order Comment: Speci men Type: BLOOD SPECIMENOrdering Facility: [facility] Address: [address] [place] [address] Performed By: #### 5 8410-2 ####VILLARREAL LABORATORYCLIA [id number] [address] [place] MCH (RBC) [Entitic mass] 27.8 pg Normal 26.0-34.0 [facility] Comment on above: Order Comment: Speci men Type: BLOOD SPECIMENOrdering Facility: [facility] Address: [address] [place] [address] Performed By: #### 5 8410-2 ####VILLARREAL LABORATORYCLIA [id number] [place] [address] [place] MCHC (RBC) [Mass/Vol] 33.1 g/dL Normal 30.5-36.0 [facility] [place] Comment on above: Order Comment: Speci men Type: BLOOD SPECIMENOrdering Facility: [facility] Address: [address] [place] [address] Performed By: #### 5 8410-2 ####VILLARREAL LABORATORYCLIA [id number] [address] [place] MCV (RBC) [Entitic vol] 84.0 fL Normal 80.0-100.0 [facility] Comment on above: Order Comment: Speci men Type: BLOOD SPECIMENOrdering Facility: [facility] Address: [address] [place] [address] Performed By: #### 5 8410-2 ####VILLARREAL LABORATORYCLIA [id number] [address] [place] Nucleated RBC (Bld) [#/Vol] 10*3/uL Normal <0.01 [facility] Comment on above: Order Comment: Speci men Type: BLOOD SPECIMENOrdering Facility: [facility] Address: [address] [place] [address] Performed By: #### 5 8410-2 ####VILLARREAL LABORATORYCLIA [id number] [address] [place] Platelet mean volume (Bld) [Entitic vol] 9.5 fL Normal 9.0-12.7 [facility] Comment on above: Order Comment: Speci men Type: BLOOD SPECIMENOrdering Facility: [facility] Address: [address] [place] [address] Performed By: #### 5 8410-2 ####VILLARREAL LABORATORYCLIA [id number] [place] [address] [place] [facility] [place] Platelets (Bld) [#/Vol] 338 10*3/uL Normal 150-400 [facility] Comment on above: Order Comment: Speci men Type: BLOOD SPECIMENOrdering Facility: [facility] Address: [address] [place] [address] Performed By: #### 5 8410-2 ####VILLARREAL LABORATORYCLIA [id number] [place] [address] [place] RBC (Bld) [#/Vol] 3.49 10*6/uL Low 3.90-5.20 [facility] Comment on above: Order Comment: Speci men Type: BLOOD SPECIMENOrdering Facility: [facility] Address: [address] [place] [address] Performed By: #### 5 8410-2 ####VILLARREAL LABORATORYCLIA [id number] [address] [place] WBC (Bld) [#/Vol] 12.48 10*3/uL High 3.70-11.00 [facility] Comment on above: Order Comment: Speci men Type: BLOOD SPECIMENOrdering Facility: [facility] Address: [address] [place] [address] Performed By: #### 5 8410-2 ####MARION LABORATORYCLIA [id number] [address] [place] CONSULTon 11-24-2024 CONSULT Normal [facility] CONSULT PROGon 11-24-2024 CONSULT PROG [facility] CONSULT PROG [facility] Vancomycin Cheraw SerPl-mCncon 11-24-2024 Vancomycin random [Mass/Vol] 11.6 ug/mL Normal 10.0-20.0 [facility] Comment on above: Order Comment: Speci men Type: BLOOD SPECIMENOrdering Facility: [facility] Address: [address] [place] [address] Result Comment: Refe rence ranges and high/low indicator flags are provided as general guidelines only. The treating physician must determine appropriate target levels/dosing based on the specific clinical situation. Performed By: #### 4 091-5 ####VILLARREAL LABORATORYCLIA [id number] [place] [address] [place] Basic metabolic 2000 panelon 11-23-2024 Anion gap [Moles/Vol] 14 mmol/L Normal 8-15 [facility] [place] Comment on above: Order Comment: Speci men Type: BLOOD SPECIMENOrdering Facility: [facility] Address: [address] [place] [address] Performed By: #### 2 4321-2 ####VILLARREAL LABORATORYCLIA [id number] [place] [address] [place] Calcium [Mass/Vol] 8.7 mg/dL Normal 8.5-10.2 [facility] Comment on above: Order Comment: Speci men Type: BLOOD SPECIMENOrdering Facility: [facility] Address: [address] [place] [address] Performed By: #### 2 4321-2 ####VILLARREAL LABORATORYCLIA [id number] [place] [address] [place] Chloride [Moles/Vol] 98 mmol/L Normal 98-107 [facility] Comment on above: Order Comment: Speci men Type: BLOOD SPECIMENOrdering Facility: [facility] Address: [address] [place] [address] Performed By: #### 2 4321-2 ####VILLARREAL LABORATORYCLIA [id number] [place] [address] [place] CO2 [Moles/Vol] 24 mmol/L Normal 22-30 [facility] Comment on above: Order Comment: Speci men Type: BLOOD SPECIMENOrdering Facility: [facility] Address: [address] [place] [address] Performed By: #### 2 4321-2 ####VILLARREAL LABORATORYCLIA [id number] [place] [address] [place] Creatinine [Mass/Vol] 0.96 mg/dL Normal 0.58-0.96 [facility] [place] Comment on above: Order Comment: Speci men Type: BLOOD SPECIMENOrdering Facility: [facility] Address: [address] [place] [address] Performed By: #### 2 4321-2 ####VILLARREAL LABORATORYCLIA [id number] [place] [address] [place] Creatinine and Glomerular filtration rate.predicted panel (S/P/Bld) 57 mL/min/1.73m??? Low >=60 [facility] Comment on above: Order Comment: Fan meade Type: BLOOD SPECIMENOrdering Facility: [facility] Address: [address] [place] [address] Result Comment: Hilda mated Glomerular Filtration Rate [...] Performed By: #### 2 4321-2 ####VILLARREAL LABORATORYCLIA [id number] [place] [address] [place] Glucose [Mass/Vol] 193 mg/dL High 74-99 [facility] Comment on above: Order Comment: Fan meade Type: BLOOD SPECIMENOrdering Facility: [facility] Address: [address] [place] [address] Result Comment: The [place] [employer] (ADA) provides guidance for cutoff [...] Standards of Medical Care in Diabetes 2016, [place] [employer]. Diabetes Care. 2016.39(Suppl 1). Performed By: #### 2 4321-2 ####VILLARREAL LABORATORYCLIA [id number] [place] [address] [place] Potassium [Moles/Vol] 4.1 mmol/L Normal 3.7-5.1 [facility] [place] Comment on above: Order Comment: Speci men Type: BLOOD SPECIMENOrdering Facility: [facility] Address: [address] [place] [address] Performed By: #### 2 4321-2 ####VILLARREAL LABORATORYCLIA [id number] [address] Sodium [Moles/Vol] 136 mmol/L Normal 136-144 [facility] Comment on above: Order Comment: Speci men Type: BLOOD SPECIMENOrdering Facility: [facility] Address: [address] [place] [address] Performed By: #### 2 4321-2 ####VILLARREAL LABORATORYCLIA [id number] [address] [place] [facility] Urea nitrogen [Mass/Vol] 31 mg/dL High 7-21 [facility] Comment on above: Order Comment: Speci men Type: BLOOD SPECIMENOrdering Facility: [facility] Address: [address] [place] [address] Performed By: #### 2 4321-2 ####VILLARREAL LABORATORYCLIA [id number] [address] [facility] CASE MANAGEMon 11-23-2024 CASE MANAGEM Normal [facility] CBC panel Auto (Bld)on 11-23 Erythrocyte distribution width (RBC) [Ratio] 15.1 % High 11.5-15.0 [facility] Comment on above: Order Comment: Speci men Type: BLOOD SPECIMENOrdering Facility: [facility] Address: [address] [place] [address] Performed By: #### 5 8410-2 ####VILLARREAL LABORATORYCLIA [id number] [address] Hematocrit (Bld) [Volume fraction] 30.5 % Low 36.0-46.0 [facility] Comment on above: Order Comment: Speci men Type: BLOOD SPECIMENOrdering Facility: [facility] Address: [address] [place] [address] Performed By: #### 5 8410-2 ####VILLARREAL LABORATORYCLIA [id number] [place] [address] [place] Hemoglobin (Bld) [Mass/Vol] 10.2 g/dL Low 11.5-15.5 [facility] Comment on above: Order Comment: Speci men Type: BLOOD SPECIMENOrdering Facility: [facility] Address: [address] [place] [address] Performed By: #### 5 8410-2 ####VILLARREAL LABORATORYCLIA [id number] [address] MCH (RBC) [Entitic mass] 28.2 pg Normal 26.0-34.0 [facility] Comment on above: Order Comment: Speci men Type: BLOOD SPECIMENOrdering Facility: [facility] Address: [address] [place] [address] Performed By: #### 5 8410-2 ####VILLARREAL LABORATORYCLIA [id number] [address] MCHC (RBC) [Mass/Vol] 33.4 g/dL Normal 30.5-36.0 [facility] [place] Comment on above: Order Comment: Speci men Type: BLOOD SPECIMENOrdering Facility: [facility] Address: [address] [place] [place] [address] Performed By: #### 5 8410-2 ####[facility] LABORATORYCLIA [id number] [address] MCV (RBC) [Entitic vol] 84.3 fL Normal 80.0-100.0 [facility] Comment on above: Order Comment: Speci men Type: BLOOD SPECIMENOrdering Facility: [facility] Address: [address] [place] [address] Performed By: #### 5 8410-2 ####[facility] LABORATORYCLIA [id number] [address] Nucleated RBC (Bld) [#/Vol] 10*3/uL Normal <0.01 [facility] Comment on above: Order Comment: Speci men Type: BLOOD SPECIMENOrdering Facility: [facility] Address: [address] [place] [address] Performed By: #### 5 8410-2 ####[facility]ILLARREAL LABORATORYCLIA [id number] [place] [address] [place] Platelet mean volume (Bld) [Entitic vol] 9.5 fL Normal 9.0-12.7 [facility] Comment on above: Order Comment: Speci men Type: BLOOD SPECIMENOrdering Facility: [facility] Address: [address] [place] [address] Performed By: #### 5 8410-2 ####[facility] LABORATORYCLIA [id number] [place] [address] [place] Platelets (Bld) [#/Vol] 338 10*3/uL Normal 150-400 [facility] Comment on above: Order Comment: Speci men Type: BLOOD SPECIMENOrdering Facility: [facility] Address: [address] [place] [address] Performed By: #### 5 8410-2 ####MAR[facility] LABORATORYCLIA [id number] [place] [address] [place] RBC (Bld) [#/Vol] 3.62 10*6/uL Low 3.90-5.20 [facility] Comment on above: Order Comment: Speci men Type: BLOOD SPECIMENOrdering Facility: [facility] Address: [address] [place] [address] Performed By: #### 5 8410-2 ####[facility] LABORATORYCLIA [id number] [address] [place] WBC (Bld) [#/Vol] 15.48 10*3/uL High 3.70-11.00 [facility] Comment on above: Order Comment: Speci men Type: BLOOD SPECIMENOrdering Facility: [facility] Address: [address] [place] [address] Performed By: #### 5 8410-2 ####MAR[facility] LABORATORYCLIA [id number] [address] [place] CONSULT PROGon 11-23-2024 CONSULT PROG Normal [facility] THERAPY NTon 11-23-2024 THERAPY NT Normal [facility] THERAPY NT Normal [facility] Bacteria Spec Anaerobe Culto n 11-22-2024 Bacteria identified Anaer cx Nom (Unsp spec) Negative Normal [facility] Comment on above: Performed By: #### 6 462-6, 635-3 ####[facility] LABCLIA [id number] [place] [id number] [place] Bacteria Wnd Culton 11-22-19 25 Bacteria identified Cx Nom (Wound) ORGANISM ID: 1 Many Staphylococcus aureus Refer to specimen collected on 11/21/2024 at 10:34 PM [[id number]] GRAM STAIN: Rare Gram positive cocci Rare Polymorphonuclear leukocytes Abnormal [facility] Comment on above: Performed By: #### 6 462-6, 635-3 ####[facility] LABCLIA [id number] [place] [address] [place] Basic metabolic 2000 panelon 11-22-2024 Anion gap [Moles/Vol] 11 mmol/L Normal 8-15 [facility] Comment on above: Order Comment: Speci men Type: BLOOD SPECIMENOrdering Facility: [facility] Address: [address] [place] [address] Performed By: #### 2 4321-2 ####MAR[facility] LABORATORYCLIA [id number] [place] [address] [place] Calcium [Mass/Vol] 8.2 mg/dL Low 8.5-10.2 [facility] Comment on above: Order Comment: Speci men Type: BLOOD SPECIMENOrdering Facility: [facility] Address: [address] [place] [address] Performed By: #### 2 4321-2 ####MAR[facility] LABORATORYCLIA [id number] [place] [address] [place] Chloride [Moles/Vol] 97 mmol/L Low 98-107 [facility] Comment on above: Order Comment: Speci men Type: BLOOD SPECIMENOrdering Facility: [facility] Address: [address] [place] [address] Performed By: #### 2 4321-2 ####MAR[facility] LABORATORYCLIA [id number] [place] [address] [place] CO2 [Moles/Vol] 25 mmol/L Normal 22-30 [facility] Comment on above: Order Comment: Fan meade Type: BLOOD SPECIMENOrdering Facility: [facility] Address: [address] [place] [address] Performed By: #### 2 4321-2 ####VILLARREAL LABORATORYCLIA [id number] [address] STATES OF [facility] Creatinine [Mass/Vol] 0.89 mg/dL Normal 0.58-0.96 [facility] Comment on above: Order Comment: Fan meade Type: BLOOD SPECIMENOrdering Facility: [facility] Address: [address] [place] [address] Performed By: #### 2 4321-2 ####[facility] LABORATORYCLIA [id number] [address] Creatinine and Glomerular filtration rate.predicted panel (S/P/Bld) 62 mL/min/1.73m??? Normal >=60 [facility] Comment on above: Order Comment: Fan meade Type: BLOOD SPECIMENOrdering Facility: [facility] Address: [address] [place] [address] Result Comment: Hilda mated Glomerular Filtration Rate [...] Performed By: #### 2 4321-2 ####VILLAR[facility] LABORATORYCLIA [id number] [address] [place] Glucose [Mass/Vol] 291 mg/dL High 74-99 [facility] Comment on above: Order Comment: Kateleroy meade Type: BLOOD SPECIMENOrdering Facility: [facility] Address: [address] [place] [address] Result Comment: The [place] [employer] (ADA) provides guidance for cutoff [...] Standards of Medical Care in Diabetes 2016, [place] [employer]. Diabetes Care. 2016.39(Suppl 1). Performed By: #### 2 4321-2 ####VILLARRE[facility] LABORATORYCLIA [id number] [address] [place] Potassium [Moles/Vol] 4.1 mmol/L Normal 3.7-5.1 [facility] Comment on above: Order Comment: Fan meade Type: BLOOD SPECIMENOrdering Facility: [facility] Address: [address] [place] [address] Performed By: #### 2 4321-2 ####VILLARRE[facility] LABORATORYCLIA [id number] [address] [place] Sodium [Moles/Vol] 133 mmol/L Low 136-144 [facility] Comment on above: Order Comment: Fan meade Type: BLOOD SPECIMENOrdering Facility: [facility] Address: [address] [place] [address] Performed By: #### 2 4321-2 ####V[facility] LABORATORYCLIA [id number] [address] [place] Urea nitrogen [Mass/Vol] 30 mg/dL High 7-21 [facility] Comment on above: Order Comment: Fan meade Type: BLOOD SPECIMENOrdering Facility: [facility] Address: [address] [place] [address] Performed By: #### 2 4321-2 ####VILLARREAL LABORATORYCLIA [id number] [place] [id number] [place] CASE MGT INIT [facility]on 2024 [facility] CBC panel Auto (Bld)on 11-22 Erythrocyte distribution width (RBC) [Ratio] 15.2 % High 11.5-15.0 [facility] Comment on above: Order Comment: Speci men Type: BLOOD SPECIMENOrdering Facility: [facility] Address: [address] [place] [address] Performed By: #### 5 8410-2 ####VILL[facility] LABORATORYCLIA [id number] [address] Hematocrit (Bld) [Volume fraction] 28.5 % Low 36.0-46.0 [facility] Comment on above: Order Comment: Speci men Type: BLOOD SPECIMENOrdering Facility: [facility] Address: [address] [place] [address] Performed By: #### 5 8410-2 ####VILL[facility] LABORATORYCLIA [id number] [address] Hemoglobin (Bld) [Mass/Vol] 9.3 g/dL Low 11.5-15.5 [facility] Comment on above: Order Comment: Speci men Type: BLOOD SPECIMENOrdering Facility: [facility] Address: [address] [place] [address] Performed By: #### 5 8410-2 ####VILLAR[facility] LABORATORYCLIA [id number] [address] MCH (RBC) [Entitic mass] 27.8 pg Normal 26.0-34.0 [facility] Comment on above: Order Comment: Speci men Type: BLOOD SPECIMENOrdering Facility: [facility] Address: [address] [place] [address] Performed By: #### 5 8410-2 ####V[facility] LABORATORYCLIA [id number] [address] MCHC (RBC) [Mass/Vol] 32.6 g/dL Normal 30.5-36.0 [facility] Comment on above: Order Comment: Speci men Type: BLOOD SPECIMENOrdering Facility: [facility] Address: [address] [place] [address] Performed By: #### 5 8410-2 ####V[facility] LABORATORYCLIA [id number] [address] MCV (RBC) [Entitic vol] 85.3 fL Normal 80.0-100.0 [facility] Comment on above: Order Comment: Speci men Type: BLOOD SPECIMENOrdering Facility: [facility] Address: [address] [place] [address] Performed By: #### 5 8410-2 ####VILLAR[facility] LABORATORYCLIA [id number] [place] [address] [place] Nucleated RBC (Bld) [#/Vol] 10*3/uL Normal <0.01 [facility] Comment on above: Order Comment: Speci men Type: BLOOD SPECIMENOrdering Facility: [facility] Address: [address] [place] [address] Performed By: #### 5 8410-2 ####VILL[facility] LABORATORYCLIA [id number] [address] [place] Platelet mean volume (Bld) [Entitic vol] 9.5 fL Normal 9.0-12.7 [facility] Comment on above: Order Comment: Speci men Type: BLOOD SPECIMENOrdering Facility: [facility] Address: [address] [place] [address] Performed By: #### 5 8410-2 ####V[facility] LABORATORYCLIA [id number] [address] [place] Platelets (Bld) [#/Vol] 294 10*3/uL Normal 150-400 [facility] Comment on above: Order Comment: Speci men Type: BLOOD SPECIMENOrdering Facility: [facility] Address: [address] [place] [address] Performed By: #### 5 8410-2 ####VILLAR[facility] LABORATORYCLIA [id number] [place] [address] [place] RBC (Bld) [#/Vol] 3.34 10*6/uL Low 3.90-5.20 [facility] Comment on above: Order Comment: Speci men Type: BLOOD SPECIMENOrdering Facility: [facility] Address: [address] [place] [address] Performed By: #### 5 8410-2 ####VILLAR[facility] LABORATORYCLIA [id number] [place] [address] [place] WBC (Bld) [#/Vol] 15.66 10*3/uL High 3.70-11.00 [facility] Comment on above: Order Comment: Speci men Type: BLOOD SPECIMENOrdering Facility: [facility] Address: [address] [place] [address] Performed By: #### 5 8410-2 ####[facility] LABORATORYCLIA [id number] [address] [place] CONSULTon 11-22-2024 CONSULT Normal [facility] CONSULT PROGon 11-22-2024 CONSULT PROG [facility] ESR Westergren method (Bld) [Velocity]on 11-22-2024 ESR (Bld) [Velocity] 40 mm/h High 0-20 [facility] Comment on above: Order Comment: Speci men Type: BLOOD SPECIMENOrdering Facility: [facility] Address: [address] [place] [address] Performed By: #### 4 537-7 ####[facility] LABCLIA [id number] [address] [place] HISTORY PHYSICALon HISTORY PHYSICAL Normal [facility] NUTRITIONon 11-22-2024 NUTRITION Normal [facility] SEPSIS LACTATE W/ REFLEX (SE COND)on 11-22-2024 Lactate [Moles/Vol] 1.9 mmol/L Normal 0.5-2.0 [facility] Comment on above: Order Comment: Speci men Type: BLOOD SPECIMENOrdering Facility: [facility] Address: [address] [place] [address] Performed By: #### S LACT2 ####MAR[facility] LABORATORYCLIA [id number] [place] [id number] [place] US ANKLE BRACHIAL INDICESon 11-22-2024 US ANKLE BRACHIAL INDICES Normal [facility] Bacteria Bld Culton 11-21-19 25 Bacteria identified Cx Nom (Bld) CULTURE, BLOOD: No growth 5 days Normal [facility] Comment on above: Performed By: #### 6 00-7 ####[facility] LABCLIA [id number] [place] [address] [place] Bacteria identified Cx Nom (Bld) ORGANISM ID: 1 Gram positive diphtheroid-like bacilli Probable contaminant. Susceptibility testing will not be performed. Call lab within 72 hours to initiate workup if clinically indicated. GRAM STAIN: Gram positive bacilli Abnormal [facility] Comment on above: Performed By: #### 6 00-7 ####[facility] LABCLIA [id number] [place] [address] [place] Bacteria Wnd Culton 11-21-19 25 Bacteria identified Cx Nom (Wound) Abnormal [facility] Comment on above: Performed By: #### 6 462-6 ####[facility] LABCLIA [id number] [place] [address] [place] CBC W Auto Differential pane l (Bld)on 11-21-2024 Basophils (Bld) [#/Vol] 0.04 10*3/uL Normal <0.11 [facility] Comment on above: Order Comment: Speci men Type: BLOOD SPECIMENOrdering Facility: [facility] Address: [address] [place] [address] Performed By: #### 5 5454-3 ####[facility] LABCLIA [id number] [address] [place]#### 08851-8 ####[facility] LABORATORYCLIA [id number] [address] [place] Basophils/100 WBC (Bld) 0.2 % Normal [facility] Comment on above: Order Comment: Speci men Type: BLOOD SPECIMENOrdering Facility: [facility] Address: [address] [place] [address] Performed By: #### 5 5454-3 ####[facility] LABCLIA [id number] [place] [address] [place]#### 38978-6 ####[facility] LABORATORYCLIA [id number] [place] [address] [place] Differential cell count method Nom (Bld) Auto Normal [facility] Comment on above: Order Comment: Speci men Type: BLOOD SPECIMENOrdering Facility: [facility] Address: [address] [place] [address] Performed By: #### 5 5454-3 ####[facility] LABCLIA [id number] [place] [address] [place]#### 93431-8 ####[facility] LABORATORYCLIA [id number] [place] [address] [place] Eosinophils (Bld) [#/Vol] 10*3/uL Normal <0.46 [facility] Comment on above: Order Comment: Speci men Type: BLOOD SPECIMENOrdering Facility: [facility] Address: [address] [place] [address] Performed By: #### 5 5454-3 ####[facility] LABCLIA [id number] [place] [address] [place]#### 73657-4 ####[facility] LABORATORYCLIA [id number] [place] [address] [place] Eosinophils/100 WBC (Bld) 0.0 % Normal [facility] Comment on above: Order Comment: Speci men Type: BLOOD SPECIMENOrdering Facility: [facility] Address: [address] [place] [address] Performed By: #### 5 5454-3 ####[facility] LABCLIA [id number] [place] [address] [place]#### 27400-4 ####[facility] LABORATORYCLIA [id number] [place] [address] [place] Erythrocyte distribution width (RBC) [Ratio] 15.0 % Normal 11.5-15.0 [facility] Comment on above: Order Comment: Speci men Type: BLOOD SPECIMENOrdering Facility: [facility] Address: [address] [place] [address] Performed By: #### 5 5454-3 ####[facility] LABCLIA [id number] [place] [address] [place]#### 91804-3 ####V[facility] LABORATORYCLIA [id number] [place] [address] [place] Hematocrit (Bld) [Volume fraction] 32.3 % Low 36.0-46.0 [facility] Comment on above: Order Comment: Speci men Type: BLOOD SPECIMENOrdering Facility: [facility] Address: [address] [place] [address] Performed By: #### 5 5454-3 ####[facility] LABCLIA [id number] [place] [address] [place]#### 85668-2 ####[facility] LABORATORYCLIA [id number] [place] [address] [place] Hemoglobin (Bld) [Mass/Vol] 10.9 g/dL Low 11.5-15.5 [facility] Comment on above: Order Comment: Speci men Type: BLOOD SPECIMENOrdering Facility: [facility] Address: [address] [place] [address] Performed By: #### 5 5454-3 ####[facility] LABCLIA [id number] [place] [address] [place]#### 18683-5 ####[facility] LABORATORYCLIA [id number] [address] [place] Immature granulocytes (Bld) [#/Vol] 0.13 10*3/uL High <0.10 [facility] Comment on above: Order Comment: Speci men Type: BLOOD SPECIMENOrdering Facility: [facility] Address: [address] [place] [address] Performed By: #### 5 5454-3 ####[facility] LABCLIA [id number] [place] [address] [place]#### 54006-9 ####[facility] LABORATORYCLIA [id number] [address] Immature granulocytes/100 WBC (Bld) 0.7 % Normal [facility] Comment on above: Order Comment: Speci men Type: BLOOD SPECIMENOrdering Facility: [facility] Address: [address] [place] [address] Performed By: #### 5 5454-3 ####[facility] LABCLIA [id number] [address] [place]#### 78912-6 ####[facility] LABORATORYCLIA [id number] [place] [address] [place] Lymphocytes (Bld) [#/Vol] 0.76 10*3/uL Low 1.00-4.00 [facility] Comment on above: Order Comment: Speci men Type: BLOOD SPECIMENOrdering Facility: [facility] Address: [address] [place] [address] Performed By: #### 5 5454-3 ####[facility] LABCLIA [id number] [address] [place]#### 95189-3 ####MAR[facility] LABORATORYCLIA [id number] [address] STATES [facility] Lymphocytes/100 WBC (Bld) 3.8 % Normal [facility] Comment on above: Order Comment: Speci men Type: BLOOD SPECIMENOrdering Facility: [facility] Address: [address] [place] [address] Performed By: #### 5 5454-3 ####[facility] LABCLIA [id number] [place] [address] [place]#### 97345-9 ####[facility] LABORATORYCLIA [id number] [place] [address] [place] MCH (RBC) [Entitic mass] 28.5 pg Normal 26.0-34.0 [facility] Comment on above: Order Comment: Speci men Type: BLOOD SPECIMENOrdering Facility: [facility] Address: [address] [place] [address] Performed By: #### 5 5454-3 ####[facility] LABCLIA [id number] [place] [address] [place]#### 43813-0 ####V[facility] LABORATORYCLIA [id number] [place] [address] [place] MCHC (RBC) [Mass/Vol] 33.7 g/dL Normal 30.5-36.0 [facility] Comment on above: Order Comment: Speci men Type: BLOOD SPECIMENOrdering Facility: [facility] Address: [address] [place] [address] Performed By: #### 5 5454-3 ####[facility] LABCLIA [id number] [place] [address] [place]#### 31375-9 ####[facility] LABORATORYCLIA [id number] [place] [address] [place] MCV (RBC) [Entitic vol] 84.3 fL Normal 80.0-100.0 [facility] Comment on above: Order Comment: Speci men Type: BLOOD SPECIMENOrdering Facility: [facility] Address: [address] [place] [address] Performed By: #### 5 5454-3 ####[facility] LABCLIA [id number] [place] [address] [place]#### 07886-8 ####[facility] LABORATORYCLIA [id number] [place] [address] [place] Monocytes (Bld) [#/Vol] 0.94 10*3/uL High <0.87 [facility] Comment on above: Order Comment: Speci men Type: BLOOD SPECIMENOrdering Facility: [facility] Address: [address] [place] [address] Performed By: #### 5 5454-3 ####[facility] LABCLIA [id number] [place] [address] [place]#### 70740-3 ####[facility] LABORATORYCLIA [id number] [address] Monocytes/100 WBC (Bld) 4.7 % Normal [facility] Comment on above: Order Comment: Speci men Type: BLOOD SPECIMENOrdering Facility: [facility] Address: [address] [place] [address] Performed By: #### 5 5454-3 ####[facility] LABCLIA [id number] [place] [address] [place]#### 63958-6 ####[facility] LABORATORYCLIA [id number] [address] [place] Neutrophils (Bld) [#/Vol] 17.99 10*3/uL High 1.45-7.50 [facility] Comment on above: Order Comment: Speci men Type: BLOOD SPECIMENOrdering Facility: [facility] Address: [address] [place] [address] Performed By: #### 5 5454-3 ####[facility] LABCLIA [id number] [place] [address] [place]#### 64042-8 ####[facility] LABORATORYCLIA [id number] [address] Neutrophils/100 WBC (Bld) 90.6 % Normal [facility] Comment on above: Order Comment: Speci men Type: BLOOD SPECIMENOrdering Facility: [facility] Address: [address] [place] [address] Performed By: #### 5 5454-3 ####[facility] LABCLIA [id number] [place] [address] [place]#### 51613-4 ####V[facility] LABORATORYCLIA [id number] [place] [address] [place] Nucleated RBC (Bld) [#/Vol] 10*3/uL Normal <0.01 [facility] Comment on above: Order Comment: Speci men Type: BLOOD SPECIMENOrdering Facility: [facility] Address: [address] [place] [address] Performed By: #### 5 5454-3 ####[facility] LABCLIA [id number] [place] [address] [place]#### 63375-5 ####[facility] LABORATORYCLIA [id number] [place] [address] [place] Nucleated RBC/100 WBC (Bld) [Ratio] 0.0 /100 WBC Normal [facility] Comment on above: Order Comment: Speci men Type: BLOOD SPECIMENOrdering Facility: [facility] Address: [address] [place] [address] Performed By: #### 5 5454-3 ####[facility] LABCLIA [id number] [place] [address] [place]#### 00212-9 ####[facility] LABORATORYCLIA [id number] [place] [address] [place] Platelet mean volume (Bld) [Entitic vol] 9.0 fL Normal 9.0-12.7 [facility] Comment on above: Order Comment: Speci men Type: BLOOD SPECIMENOrdering Facility: [facility] Address: [address] [place] [address] Performed By: #### 5 5454-3 ####[facility] LABCLIA [id number] [place] [address] [place]#### 41413-5 ####[facility] LABORATORYCLIA [id number] [place] [address] [place] Platelets (Bld) [#/Vol] 326 10*3/uL Normal 150-400 [facility] Comment on above: Order Comment: Speci men Type: BLOOD SPECIMENOrdering Facility: [facility] Address: [address] [place] [address] Performed By: #### 5 5454-3 ####[facility] LABCLIA [id number] [place] [address] [place]#### 01333-7 ####[facility] LABORATORYCLIA [id number] [place] [address] [place] RBC (Bld) [#/Vol] 3.83 10*6/uL Low 3.90-5.20 [facility] Comment on above: Order Comment: Speci men Type: BLOOD SPECIMENOrdering Facility: [facility] Address: [address] [place] [address] Performed By: #### 5 5454-3 ####[facility] LABCLIA [id number] [place] [address] [place]#### 98076-0 ####[facility] LABORATORYCLIA [id number] [address] [place] [facility] WBC (Bld) [#/Vol] 19.86 10*3/uL High 3.70-11.00 [facility] Comment on above: Order Comment: Speci men Type: BLOOD SPECIMENOrdering Facility: [facility] Address: [address] [place] [address] Performed By: #### 5 5454-3 ####[facility] LABCLIA [id number] [address] [place]#### 73434-4 ####[facility] LABORATORYCLIA [id number] [address] [place] CRP SerPl-ncon 11-21-2024 CRP [Mass/Vol] 3.8 mg/dL High <0.9 [facility] Comment on above: Order Comment: Speci men Type: BLOOD SPECIMENOrdering Facility: [facility] Address: [address] [place] [address] Performed By: #### 2 4323-8, 14337-3, 1988-5, 29571-2 ####VILL[facility] LABORATORYCLIA [id number] [place] [address] [place] Comprehensive metabolic 2000 panelon 11-21-2024 Albumin [Mass/Vol] 3.7 g/dL Low 3.9-4.9 [facility] Comment on above: Order Comment: Speci men Type: BLOOD SPECIMENOrdering Facility: [facility] Address: [address] [place] [address] Performed By: #### 2 4323-8, 25122-5, 1988-03, ####VILLARREAL LABORATORYCLIA [id number] [address] [place] ALP [Catalytic activity/Vol] 90 U/L Normal 34-123 [facility] Comment on above: Order Comment: Speci men Type: BLOOD SPECIMENOrdering Facility: [facility] Address: [address] [place] [address] [place] [address] Performed By: #### 2 4323-8, 62937-2, 1988-03, ####VILLARREAL LABORATORYCLIA [id number] [address] ALT [Catalytic activity/Vol] 10 U/L Normal 7-38 [facility] Comment on above: Order Comment: Speci men Type: BLOOD SPECIMENOrdering Facility: [facility] Address: [facility] [place] [address] Performed By: #### 2 4323-8, 80046-3, 1988-03, ####VILLARRE[facility] LABORATORYCLIA [id number] [address] Anion gap [Moles/Vol] 13 mmol/L Normal 8-15 [facility] Comment on above: Order Comment: Speci men Type: BLOOD SPECIMENOrdering Facility: [facility] Address: [address] [place] [address] Performed By: #### 2 4323-8, 67645-7, 1988-03, ####VILLARREAL LABORATORYCLIA [id number] [address] AST [Catalytic activity/Vol] 14 U/L Normal 13-35 [facility] Comment on above: Order Comment: Speci men Type: BLOOD SPECIMENOrdering Facility: [facility] Address: [address] [place] [address] [place] [address] Performed By: #### 2 4323-8, 96025-6, 1988-03, ####VILLARREAL LABORATORYCLIA [id number] [place] [address] [place] Bilirubin [Mass/Vol] 0.2 mg/dL Normal 0.2-1.3 [facility] Comment on above: Order Comment: Speci men Type: BLOOD SPECIMENOrdering Facility: [facility] Address: [facility] [place] [address] Performed By: #### 2 4323-8, 06299-9, 1988-03, ####VILLARREAL LABORATORYCLIA [id number] [place] [address] [place] Calcium [Mass/Vol] 9.3 mg/dL Normal 8.5-10.2 [facility] Comment on above: Order Comment: Speci men Type: BLOOD SPECIMENOrdering Facility: [facility] Address: [address] [place] [address] [place] [address] Performed By: #### 2 4323-8, 54847-3, 1988-03, ####VILLARREAL LABORATORYCLIA [id number] [place] [address] [place] Chloride [Moles/Vol] 96 mmol/L Low 98-107 [facility] Comment on above: Order Comment: Speci men Type: BLOOD SPECIMENOrdering Facility: [facility] Address: [facility] [place] [address] Performed By: #### 2 4323-8, , 1988-03, ####VILLARREAL LABORATORYCLIA [id number] [place] [address] [place] CO2 [Moles/Vol] 25 mmol/L Normal 22-30 [facility] Comment on above: Order Comment: Speci men Type: BLOOD SPECIMENOrdering Facility: [facility] Address: [facility] [place] [address] Performed By: #### 2 4323-8, 10834-0, 1988-03, ####VILLARREAL LABORATORYCLIA [id number] [place] [address] [place] Creatinine [Mass/Vol] 1.02 mg/dL High 0.58-0.96 [facility] Comment on above: Order Comment: Fan meade Type: BLOOD SPECIMENOrdering Facility: [facility] Address: [address] [place] [address] Performed By: #### 2 4323-8, 56942-6, 1988-03, ####[facility] LABORATORYCLIA [id number] [address] Creatinine and Glomerular filtration rate.predicted panel (S/P/Bld) 53 mL/min/1.73m??? Low >=60 [facility] Comment on above: Order Comment: Fan meade Type: BLOOD SPECIMENOrdering Facility: [facility] Address: [address] [place] [address] Result Comment: Hilda mated Glomerular Filtration Rate [...] actual GFR. Performed By: #### 2 4323-8, 27087-3, 1988-03, ####VILLARREAL LABORATORYCLIA [id number] [address] STATES OF [facility] Glucose [Mass/Vol] 314 mg/dL High 74-99 [facility] Comment on above: Order Comment: Fan meade Type: BLOOD SPECIMENOrdering Facility: [facility] Address: [address] [place] [address] Result Comment: The [place] Diabetes Association (ADA) provides guidance for cutoff [...] Standards of Medical Care in Diabetes 2016, [place] Diabetes Association. Diabetes Care. 2016.39(Suppl 1). Performed By: #### 2 4323-8, 52617-3, 1988-03, ####VILLARREAL LABORATORYCLIA [id number] [place] [address] [place] Potassium [Moles/Vol] 4.7 mmol/L Normal 3.7-5.1 [facility] Comment on above: Order Comment: Speci men Type: BLOOD SPECIMENOrdering Facility: [facility] Address: [address] [place] [address] Performed By: #### 2 4323-8, 13710-1, 1988-03, ####VILLARREAL LABORATORYCLIA [id number] [place] [address] [place] Protein [Mass/Vol] 6.4 g/dL Normal 6.3-8.0 [facility] Comment on above: Order Comment: Speci men Type: BLOOD SPECIMENOrdering Facility: [facility] Address: [address] [place], [place] [address] Performed By: #### 2 4323-8, 14295-8, 1988-03, ####VILLARREAL LABORATORYCLIA [id number] [place] [address] [place] Sodium [Moles/Vol] 134 mmol/L Low 136-144 [facility] Comment on above: Order Comment: Speci men Type: BLOOD SPECIMENOrdering Facility: [facility] Address: [address] [place] [address] Performed By: #### 2 4323-8, 82433-6, 1988-03, ####VILLARREAL LABORATORYCLIA [id number] [place] [address] [place] Urea nitrogen [Mass/Vol] 37 mg/dL High 7-21 [facility] Comment on above: Order Comment: Speci men Type: BLOOD SPECIMENOrdering Facility: [facility] Address: [address] [place] [address] Performed By: #### 2 4323-8, 04669-3, 1988-5, 26181-9 ####MAR[facility] LABORATORYCLIA [id number] [place] [address] [place] [facility] ED PROV NOTEon 11-21-2024 ED PROV NOTE Normal [facility] ED Triage Noteon 11-21-2024 ED Triage Note Normal [facility] HbA1c (Bld)on 11-21-2024 Average glucose Estimated from glycated hemoglobin (Bld) [Mass/Vol] 252 mg/dL Normal [facility] Comment on above: Order Comment: Speci men Type: BLOOD SPECIMENOrdering Facility: [facility] Address: [address] [place] [address] Result Comment: eAG: (Estimated average glucose) is a calculated value from HgbA1c and is financial sales representative of the average blood glucose level in the last 2-3 month period. Performed By: #### 5 5454-3 ####[facility] LABCLIA [id number] [address]#### [address]84[address]-8 ####MARION LABORATORYCLIA [id number] [address] STATES [facility] HbA1c (Bld) [Mass fraction] 10.4 % High 4.3-5.6 [facility] Comment on above: Order Comment: Fan meade Type: BLOOD SPECIMENOrdering Facility: [facility] Address: [address] [place] [address] Result Comment: Amer [place] Diabetes Association guidelines indicate that patients with HgbA1c in the range 5.7-6.4% are at increased risk for development of diabetes, and intervention by lifestyle modification may be beneficial. HgbA1c greater or equal to 6.5% is considered diagnostic of diabetes. Performed By: #### 5 5454-3 ####[facility] LABCLIA [id number] [address] [place]#### [address]93[address]-7 ####MAR[facility] LABORATORYCLIA [id number] [address] [place] [facility] NT-proBNP [facility] Natriuretic peptide.B prohormone N-Terminal [Mass/Vol] 1157 pg/mL High <450 [facility] Comment on above: Order Comment: Speci men Type: BLOOD SPECIMENOrdering Facility: [facility] Address: [address] [place] [address] Performed By: #### 2 4323-8, 84171-2, 1988-03, 49757-5 ####MAR[facility] LABORATORYCLIA [id number] [place] [id number] [facility] [place] Procalcitonin SerPl-mCncon 0 11-21-2024 Procalcitonin [Mass/Vol] 0.14 ng/mL High <0.09 [facility] Comment on above: Order Comment: Speci men Type: BLOOD SPECIMENOrdering Facility: [facility] Address: [address] [place] [address] Result Comment: For a guided interpretation of test results, please visit the Change in Procalcitonin Calculator, [email or web address]. Performed By: #### 2 4323-8, 90494-9, 1988-03, ####MARION LABORATORYCLIA [id number] [place] [id number] [place] SEPSIS LACTATE W/ REFLEX (IN ITIAL)on 11-21-2024 Lactate [Moles/Vol] 2.2 mmol/L High 0.5-2.0 [facility] Comment on above: Order Comment: Speci men Type: BLOOD SPECIMENOrdering Facility: [facility] Address: [address] [place] [address] Performed By: #### S LACTR ####MAR[facility] LABORATORYCLIA [id number] [place] [address] [place] XR ANKLE 3V AP/LAT/OBL RTon 11-21-2024 XR ANKLE 3V AP/LAT/OBL RT Normal [facility] CBC W Auto Differential pane l (Bld)on 11-19-2024 Basophils (Bld) [#/Vol] 0.05 10*3/uL Normal <0.11 [facility] Comment on above: Order Comment: Speci men Type: BLOOD SPECIMENOrdering Facility: [facility] Address: [address] [place] [address] Performed By: #### 5 7021-8 ####[facility] LABCLIA [id number] [place] [address] [place] Basophils/100 WBC (Bld) 0.5 % Normal C [facility] Comment on above: Order Comment: Speci men Type: BLOOD SPECIMENOrdering Facility: [facility] Address: [address] [place] [address] Performed By: #### 5 7021-8 ####[facility] LABCLIA [id number] [place] [address] [place] Differential cell count method Nom (Bld) Auto Normal [facility] Comment on above: Order Comment: Speci men Type: BLOOD SPECIMENOrdering Facility: [facility] Address: [address] [place] [address] Performed By: #### 5 7021-8 ####[facility] LABCLIA [id number] [place] [address] [place] Eosinophils (Bld) [#/Vol] 0.12 10*3/uL Normal <0.46 [facility] Comment on above: Order Comment: Speci men Type: BLOOD SPECIMENOrdering Facility: [facility] Address: [address] [place] [address] Performed By: #### 5 7021-8 ####[facility] LABCLIA [id number] [place] [address] [place] Eosinophils/100 WBC (Bld) 1.3 % Normal [facility] Comment on above: Order Comment: Speci men Type: BLOOD SPECIMENOrdering Facility: [facility] Address: [address] [place] [address] Performed By: #### 5 7021-8 ####[facility] LABCLIA [id number] [place] [address] [place] Erythrocyte distribution width (RBC) [Ratio] 14.8 % Normal 11.5-15.0 [facility] Comment on above: Order Comment: Speci men Type: BLOOD SPECIMENOrdering Facility: [facility] Address: [address] [place] [address] Performed By: #### 5 7021-8 ####[facility] LABIA [id number] [place] [address] [place] Hematocrit (Bld) [Volume fraction] 35.8 % Low 36.0-46.0 [facility] Comment on above: Order Comment: Speci men Type: BLOOD SPECIMENOrdering Facility: [facility] Address: [address] [place] [address] Performed By: #### 5 7021-8 ####[facility] LABIA [id number] [place] [address] [place] Hemoglobin (Bld) [Mass/Vol] 11.5 g/dL Normal 11.5-15.5 [facility] Comment on above: Order Comment: Speci men Type: BLOOD SPECIMENOrdering Facility: [facility] Address: [address] [place] [address] Performed By: #### 5 7021-8 ####[facility] LABIA [id number] [place] [address] [place] Immature granulocytes (Bld) [#/Vol] 0.07 10*3/uL Normal <0.10 [facility] Comment on above: Order Comment: Speci men Type: BLOOD SPECIMENOrdering Facility: [facility] Address: [address] [place] [address] Performed By: #### 5 7021-8 ####[facility] LABIA [id number] [place] [address] [place] Immature granulocytes/100 WBC (Bld) 0.7 % Normal [facility] Comment on above: Order Comment: Speci men Type: BLOOD SPECIMENOrdering Facility: [facility] Address: [address] [place] [address] Performed By: #### 5 7021-8 ####[facility] LABCLIA [id number] [place] [address] [place] Lymphocytes (Bld) [#/Vol] 1.19 10*3/uL Normal 1.00-4.00 [facility] Comment on above: Order Comment: Speci men Type: BLOOD SPECIMENOrdering Facility: [facility] Address: [address] [place] [address] Performed By: #### 5 7021-8 ####[facility] LABCLIA [id number] [place] [address] [place] Lymphocytes/100 WBC (Bld) 12.7 % Normal [facility] Comment on above: Order Comment: Speci men Type: BLOOD SPECIMENOrdering Facility: [facility] Address: [address] [place] [address] Performed By: #### 5 7021-8 ####[facility] LABCLIA [id number] [place] [address] [place] MCH (RBC) [Entitic mass] 28.0 pg Normal 26.0-34.0 [facility] Comment on above: Order Comment: Speci men Type: BLOOD SPECIMENOrdering Facility: [facility] Address: [address] [place] [address] Performed By: #### 5 7021-8 ####[facility] LABCLIA [id number] [place] [address] [place] MCHC (RBC) [Mass/Vol] 32.1 g/dL Normal 30.5-36.0 [facility] Comment on above: Order Comment: Speci men Type: BLOOD SPECIMENOrdering Facility: [facility] Address: [address] [place] [address] Performed By: #### 5 7021-8 ####[facility] LABCLIA [id number] [place] [address] [place] MCV (RBC) [Entitic vol] 87.1 fL Normal 80.0-100.0 C [facility] Comment on above: Order Comment: Speci men Type: BLOOD SPECIMENOrdering Facility: [facility] Address: [address] [place] [address] Performed By: #### 5 7021-8 ####[facility] LABCLIA [id number] [place] [address] [place] Monocytes (Bld) [#/Vol] 0.67 10*3/uL Normal <0.87 [facility] Comment on above: Order Comment: Speci men Type: BLOOD SPECIMENOrdering Facility: [facility] Address: [address] [place] [address] Performed By: #### 5 7021-8 ####[facility] LABCLIA [id number] [place] [address] [place] Monocytes/100 WBC (Bld) 7.1 % Normal C [facility] Comment on above: Order Comment: Speci men Type: BLOOD SPECIMENOrdering Facility: [facility] Address: [address] [place] [address] Performed By: #### 5 7021-8 ####[facility] LABCLIA [id number] [place] [address] [place] Neutrophils (Bld) [#/Vol] 7.29 10*3/uL Normal 1.45-7.50 [facility] Comment on above: Order Comment: Speci men Type: BLOOD SPECIMENOrdering Facility: [facility] Address: [address] [place] [address] Performed By: #### 5 7021-8 ####[facility] LABCLIA [id number] [place] [address] [place] Neutrophils/100 WBC (Bld) 77.7 % Normal [facility] Comment on above: Order Comment: Speci men Type: BLOOD SPECIMENOrdering Facility: [facility] Address: [address] [place] [address] Performed By: #### 5 7021-8 ####[facility] LABCLIA [id number] [place] [address] [place] Nucleated RBC (Bld) [#/Vol] 10*3/uL Normal <0.01 [facility] Comment on above: Order Comment: Speci men Type: BLOOD SPECIMENOrdering Facility: [facility] Address: [address] [place] [address] Performed By: #### 5 7021-8 ####[facility] LABCLIA [id number] [place] [address] [place] Nucleated RBC/100 WBC (Bld) [Ratio] 0.0 /[address] [facility] Comment on above: Order Comment: Speci men Type: BLOOD SPECIMENOrdering Facility: [facility] Address: [address] [place] [address] Performed By: #### 5 7021-8 ####[facility] LABCLIA [id number] [place] [address] [place] Platelet mean volume (Bld) [Entitic vol] 9.6 fL Normal 9.0-12.7 [facility] Comment on above: Order Comment: Speci men Type: BLOOD SPECIMENOrdering Facility: [facility] Address: [address] [place] [address] Performed By: #### 5 7021-8 ####[facility] LABCLIA [id number] [place] [address] [place] Platelets (Bld) [#/Vol] 405 10*3/uL High 150-400 [facility] Comment on above: Order Comment: Speci men Type: BLOOD SPECIMENOrdering Facility: [facility] Address: [address] [place] [address] Performed By: #### 5 7021-8 ####[facility] LABCLIA [id number] [place] [address] [place] RBC (Bld) [#/Vol] 4.11 10*6/uL Normal 3.90-5.20 [facility] Comment on above: Order Comment: Speci men Type: BLOOD SPECIMENOrdering Facility: [facility] Address: [address] [place] [address] Performed By: #### 5 7021-8 ####[facility] [id number] [place] [address] [place] WBC (Bld) [#/Vol] 9.39 10*3/uL Normal 3.70-11.00 [facility] Comment on above: Order Comment: Speci men Type: BLOOD SPECIMENOrdering Facility: [facility] Address: [address] [place] [address] Performed By: #### 5 7021-8 ####[facility] [id number] [place] [address] [place] Ferritin SerPl-mCncon 2024 Ferritin [Mass/Vol] 39.6 ng/mL Normal 14.7-205.1 [facility] Comment on above: Order Comment: Speci men Type: BLOOD SPECIMENOrdering Facility: [facility] Address: [address] [place] [address] Performed By: #### 5 0190-8, 2276-4 ####[facility] [id number] [place] [address] [place] Iron and Iron binding capaci ty panelon 11-19-2024 Iron [Mass/Vol] 65 ug/dL Normal 41-186 [facility] Comment on above: Order Comment: Speci men Type: BLOOD SPECIMENOrdering Facility: [facility] Address: [address] [place] [address] Performed By: #### 5 0190-8, 2276-4 ####[facility] LABIA [id number] [place] [address] [place] Iron binding capacity [Mass/Vol] 392 ug/dL High 232-386 [facility] Comment on above: Order Comment: Speci men Type: BLOOD SPECIMENOrdering Facility: [facility] Address: [address] [place] [address] Performed By: #### 5 0190-8, 2276-4 ####[facility] LABCLIA [id number] [address] [place] Iron/TIBC [Molar ratio] 16.6 % Normal 15.0-57.0 [facility] Comment on above: Order Comment: Speci men Type: BLOOD SPECIMENOrdering Facility: [facility] Address: [address] [place] [address] Performed By: #### 5 0190-8, 2276-4 ####[facility] LABCLIA [id number] [address] STATES OF [facility] MR Ankle - right WO contrast on 11-19-2024 IMPRESSION: Nonspecific circumferential subcutaneous/soft tissue edema involving the distal leg and ankle. Muscle fatty changes and edema which may be related to disuse. Moderate midfoot osteoarthritis. No evidence of inflammatory arthritis. Direct Marketing Representative: PHU Transcribe Date/Time: Nov 19 2024 10:47A Dictated by : CHANDNI ZIMMERMAN MD This examination was interpreted and the report reviewed and electronically signed by: LAZARO OHARA MD on Nov 19 2024 1:28PM [facility] DIVISION OF RADIOLOGY * * *Final Report* * * DATE OF EXAM: Nov 19 2024 10:08AM [facility] 0164 - MRI ANKLE WO IVCON RT [...] significant additional findings. DIVISION OF RADIOLOGY Provider, [facility] - 11/19/2024 * * *Final Report* * [...] midfoot osteoarthritis. No evidence of inflammatory arthritis. Direct Marketing Representative: PHU Transcribe Date/Time: Nov 19 2024 10:47A Dictated by : CHANDNI ZIMMERMAN MD This examination was interpreted and the report reviewed and electronically signed by: LAZARO OHARA MD on Nov 19 2024 1:28PM EST [facility] Radiology Study observation (narrative) [facility] MR Ankle - right WO contrast Ordered By: [facility]cf Provider on 11-19-2024 [facility] MRI ANKLE WO IVCON RTon MRI ANKLE [...] midfoot osteoarthritis. No evidence of inflammatory arthritis. Direct Marketing Representative: PHU Transcribe Date/Time: Nov 19 2024 10:47A Dictated by : CHANDNI ZIMMERMAN MD This examination was interpreted and the report reviewed and electronically signed by: LAZARO OHARA MD on Nov 19 2024 1:28PM EST [id number] Normal [facility] Zinc SerPl-mCncon 11-19-2024 Zinc [Mass/Vol] 55 ug/dL Low 60-120 [facility] Comment on above: Order Comment: Speci men Type: BLOOD SPECIMEN [facility] Address: [address] [place] [address] Result Comment: This test was developed, and its performance characteristics determined by the [facility] Department of Pathology and Laboratory Medicine. It has not been cleared or approved by the FDA. The [facility] Department of Pathology and Laboratory Medicine is regulated under CLIA as qualified to perform high-complexity testing. This test is used for clinical purposes. It should not be regarded as investigational or for research. Performed By: #### 2 276-4, 2132-9, 44056-1, 2284-8 #### [facility] CLIA [id number] [address] [place], [place] [address] [address] [place] CNPKelsie 11-06-2024 CNPN Telephone ([facility]) YUSUF MEDINA ([id number]) 1935 F [facility] Date Time Provider Department 11/06/24 WILLIE KAUR [facility] During your visit today, we recorded [...] this patient by: CAREGIVER José Miguel Swanson [facility] Problem List As Of Date [...] 07/17/2013 05/11/2016 (more content not included)... Normal [facility] Arti 11-05-2024 JACINTA Telephone ([facility]) YUSUF MEDINA ([id number]) 1935 F ALBERT[place] Date Time Provider Department 11/05/24 GRUPO MENDEZ During your visit today, we recorded the following information about you: Grupo Mendez MD 11/05/2024 6:55 PM Signed Patient has secondary leukocytosis in the setting of highly elevated sed rate, RUBEN 1:320 titer, positive [employer] Hematology work-up was essentially negative highlighting concern for rheumatological disease. Patient is leaving to [place] for 2 weeks I will schedule lab [...] BLOOD COUNT AND DIFFERENTIAL [SQCBCDIF] Order #: [id number] FUTURE IRON AND TIBC [SQIRON] Order #: [id number] FUTURE FERRITIN [SQFERR] Order #: [id number] FUTURE ZINC BLD [SQZINC] Order #: [id number] FUTURE Prescriptions as of 11/05/2024 - meloxicam (MOBIC) 15 mg tablet TAKE 1 TABLET BY MOUTH ONCE DAILY NEEDED FOR PAIN. DO NOT COMBINE WITH DICLOFENAC GEL - traZODone (DESYREL) 50 mg tablet Take 1 tablet by mouth at bedtime as needed for sedation. - blood sugar diagnostic (SportsHedgeTOUCH ULTRA TEST) test strip Test blood sugar [...] this patient by: CAREGIVER José Miguel Swanson [facility] Problem List As Of Date [...] [N18.9] 05/11/2016 (more content not included)... Normal [facility] CNOVon 11-01-2024 CNOV Office Visit (OTMBHT ) YUSUF MEDINA ([id number]) 1935 [place][birth year] Date Time Provider Department 11/01/24 [...] L REMV CATARACT EXTRACAP,INSERT LENS Bilateral 2020 [facility] Family History: FAMILY HISTORY Problem Relation Age of Onset None Brother None Sister None Brother Medications: Current Outpatient Medications Medication Sig meloxicam (MOBIC) 15 mg tablet TAKE 1 TABLET BY MOUTH ONCE DAILY NEEDED FOR PAIN. DO NOT COMBINE WITH DICLOFENAC GEL traZODone (DESYREL) 50 mg tablet Take 1 tablet by mouth at bedtime as needed for sedation. blood sugar diagnostic (SportsHedgeTOUCH ULTRA TEST) test strip Test blood sugar [...] Plan: Rig (more content not included)... Normal [facility] CRP SerPl-mCncon 11-01-2024 CRP [Mass/Vol] 0.3 mg/dL Normal <0.9 [facility] Comment on above: Order Comment: Fan meade Type: BLOOD SPECIMEN Ordering Facility: [facility] Address: [address] [place] [address] Performed By: #### 2 276-4, 21319, 62196-7, 8 #### [facility] CLIA [id number] [address] [place] [address] [place] ESR Westergren method (Bld) [Velocity]on 11-01-2024 ESR (Bld) [Velocity] 36 mm/h High [facility]20 [facility] Comment on above: Order Comment: Fan meade Type: BLOOD SPECIMEN Ordering Facility: [facility] Address: [address] [place] [address] Performed By: #### 2 276-4, 21319, 41951-5, 8 #### [facility] CLIA [id number] [address] [place] [address] [place] XR ANKLE 3V [...] planus and mild to moderate midfoot osteoarthritis. Direct Marketing Representative: Remark Transcribe Date/Time: Nov 02 2024 11:17A Dictated by : SHARYN UMANA MD This examination was interpreted and the report reviewed and electronically signed by: SHARYN UMANA MD on Nov 02 2024 11:20AM EST [id number] [facility] XR FOOT 3V AP/LAT/OBL RTon 1 01-02-2024 [...] planus and mild to moderate midfoot osteoarthritis. Direct Marketing Representative: Remark Transcribe Date/Time: Nov 02 2024 11:17A Dictated by : SHARYN UMANA MD This examination was interpreted and the report reviewed and electronically signed by: SHARYN UMANA MD on Nov 02 2024 11:20AM EST [id number] Normal [facility] CNOVon 10-29-2024 CNOV Office Visit ([facility] ) YUSUF MEDINA ([id number]) 1935 F [place] Date Time Provider Department 10/29/24 4:20 PM AB BENSON [facility] During your visit today, we recorded the following information about you: Temperature Pulse Blood pressure Weight 99.3 degrees 66/minute 159/72 48 kg Ab Benson MD 11/04/2024 7:29 PM Signed This note was created using Weplayriter. Subjective Yusuf Medina is a 88 year [...] needed for sedation. - blood sugar diagnostic (WellUCH ULTRA TEST) test strip Test blood sugar [...] this patient by: CAREGIVER José Miguel Swanson [facility] Problem List As Of Date [...] intervert*10/31/2010 [employer] (more content not included)... Normal [facility] CNOVon 09-20-2024 CNOV Office Visit (OTMBHT ) YUSUF MEDINA ([id number]) 1935 F [place] Date Time Provider Department [...] L REMV CATARACT EXTRACAP,INSERT LENS Bilateral 2020 [facility] Family History: FAMILY HISTORY Problem Relation Age of Onset None Brother None Sister None Brother Medications: Current Outpatient Medications Medication Sig traZODone (DESYREL) 50 mg tablet Take 1 tablet by mouth at bedtime as needed for sedation. blood sugar diagnostic (WellUCH ULTRA TEST) test strip Test blood sugar [...] malleolus NTTP (more content not included)... Normal [facility] BCR/ABL1 P210 AND P190 DIAGN OSTIC PCR BLOODon 09-19-2024 BCR/ABL1 P210 AND P190 DIAGNOSTIC PCR BLOOD RESULT BCR/ABL1 p210 and p190 Diagnostic PCR Laboratory Accession Number: [id number] Sample Type: Peripheral Blood Result: NOT DETECTED; [...] this sample, and cDNA prepared by reverse machinery repair maintenance supervisor. Real time PCR was performed in two separate reactions, using primers for e13a2 and/or e14a2 BCR/ABL1 fusion transcripts and ABL1 transcripts for p210 detection and primers for e1a2 BCR/ABL1 fusion transcripts and ABL1 transcripts for p190 detection (QuantideX BCR/ABL IS assay, [employer], [place], [place]). This assay has a limit [...] developed and its performance characteristics determined by [facility]'s Pathology and Laboratory Medicine Department. It has not been cleared or approved by the FDA. [facility]'s Pathology and Laboratory Medicine Department is regulated under CLIA as certified to perform high-complexity testing. This test is used for clinical purposes. It should not be regarded as investigational or for research. Testing and interpretation performed at [facility], [facility] [place] [address]. CLIA Number: [id number] As reviewed by José Miguel Persaud MD [facility] METHYLMALONIC ACIDon 024 Methylmalonate [Moles/Vol] 0.29 umol/L NINF - 0.40 umol/L [facility] Comment on above: This test was develo ped, and its performance characteristics determined by the [facility] Department of Pathology and Laboratory Medicine. It has not been cleared or approved by the FDA. The [facility] Department of Pathology and Laboratory Medicine is regulated under CLIA as qualified to perform high-complexity testing. This test is used for clinical purposes. It should not be regarded as investigational or for research. Methylmalonate [Moles/Vol]on 09-19-2024 Interpretation and review of laboratory results Normal [facility] XR CALCANEUS 2V AXIAL/LAT RT on 09-19-2024 XR CALCANEUS 2V AXIAL/LAT RT * * *Final Report* * * DATE OF EXAM: Sep 19 2024 2:13PM [facility] - XR CALCANEUS 2V AXIAL/LAT RT [...] planus with calcaneal enthesophytes and bone demineralization. Direct Marketing Representative: PHU Transcribe Date/Time: Sep 21 2024 11:34A Dictated by : ALEJANDRA MONCADA MD This examination was interpreted and the report reviewed and electronically signed by: ALEJANDRA MONCADA MD on Sep 21 2024 11:39AM EST [id number] Normal [facility] XR FOOT 3V AP/LAT/OBL RTon 1 [...] toes with hammertoe deformities. 4. Calcaneal enthesophytes. Direct Marketing Representative: Remark Transcribe Date/Time: Sep 21 2024 11:40A Dictated by : ALEJANDRA MONCADA MD This examination was interpreted and the report reviewed and electronically signed by: ALEJANDRA MONCADA MD on Sep 21 2024 11:59AM EST [id number] Normal [facility] CCP ANTIBODY IGGOrdered By: Robin Zavala on 09-18-2024 Cyclic citrullinated peptide IgG Qn WILVERF [facility] CNPNon 09-18-2024 CNPN Telephone (HEMAST) YUSUF MEDINA ([id number]) 1935 F [place] Date Time Provider Department 09/18/24 GRUPO MENDEZ During your visit today, we recorded the following information about you: Grupo Mendez MD 09/18/2024 9:19 PM Signed Results were reviewed. I spoke with [id number] Demetria about suspicion for calcaneal bone fracture. [...] initial encounter [S92.001A] Order(s):CONSULT PANEL TO ORTHOPAEDICS [789799] Order #: [id number]: 1 FUTURE Prescriptions as of 09/18/2024 - traZODone (DESYREL) 50 mg tablet Take 1 tablet by mouth at bedtime as needed for sedation. - blood sugar diagnostic (SportsHedgeTOUCH ULTRA TEST) test strip Test blood sugar [...] this patient by: CAREGIVER José Miguel Swanson [facility] Problem List As Of Date [...] dependent (NIDDM*03/07 (more content not included)... Normal [facility] COPPER BLOODon 09-18-2024 Copper [Mass/Vol] 128 ug/dL 80 - 155 ug/dL [facility] Comment on above: This test was corina ped, and its performance characteristics determined by the [facility] Department of Pathology and Laboratory Medicine. It has not been cleared or approved by the FDA. The [facility] Department of Pathology and Laboratory Medicine is regulated under CLIA as qualified to perform high-complexity testing. This test is used for clinical purposes. It should not be regarded as investigational or for research. Interpretation and review of laboratory results Normal [facility] Cyclic citrullinated peptide IgG QnOrdered By: Robin Zavala on 09-18-2024 CCP Antibody IgG Qualitative Negative Negative [facility] Interpretation and review of laboratory results Normal [facility] This test is used as aid in diagnosis of Rheumatoid arthritis (RA). A negative result cannot rule out RA where clinically suspected. Clinical correlation is required. The following results were obtained with an [employer] QUANTA Lite CCP IgG JOE. Cyclic Citrullinated Peptide IgG values obtained with different manufacturers' assay methods may not be used interchangeably. The magnitude of the reported IgG levels cannot be correlated to an endpoint titer. [facility] FERRITINon 09-18-2024 Ferritin [Mass/Vol] 59.9 ng/mL 14.7 - 2 05.1 ng/mL [facility] FOLATE, SERUMon 09-18-2024 Folate [Mass/Vol] 18.8 ng/mL 4.7 - PINF ng/mL [facility] Ferritin [Mass/Vol]on 2023 Interpretation and review of laboratory results Normal [facility] HOMOCYSTEINEon 09-18-2024 Homocysteine [Moles/Vol] 21.2 umol/L High NINF - 15.1 umol/L [facility] Homocysteine [Moles/Vol]on 11-18-2023 Interpretation and review of laboratory results Abnormal [facility] Iron and Iron binding capaci ty panelon 09-18-2024 Interpretation and review of laboratory results Abnormal [facility] Iron [Mass/Vol] 29 ug/dL Low 41 - 186 ug/dL [facility] Iron binding capacity [Mass/Vol] 407 ug/dL High 232 - 386 ug/dL [facility] Iron/TIBC [Molar ratio] 7.1 % Low 15.0 - 57.0 % [facility] No Panel InformationOrdered By: Cheryl Sinha on 09-18-2024 [facility] No Panel Informationon 09-18 Interpretation and review of laboratory results Normal [facility] Nuclear Ab IA Ql (S)Ordered By: Lien Matson on 09-18-2024 RUBEN Scr Qual Positive Abnormal Negative [facility] Comment on above: The qualitative anti nuclear antibody screen test performed using the following antigens: dsDNA, Chromatin, Ribosomal P, SS-A 60, SS-A 52, SS-B, Sm, SmRNP, [employer] A, [employer] 68, Scl-70, Nadege-1, and Centromere B. Methodology: Multiplex flow immunoassay. Interpretation and review of laboratory results Abnormal [facility] URIC ACIDon 09-18-2024 Urate [Mass/Vol] 5.6 mg/dL 2.5 - 6.6 mg/dL [facility] US DVT LOWER RTon 09-18-2024 US DVT LOWER RT Normal [facility] US Lower extremity vein - [facility] 09-18-2024 IMPRESSION: Negative study for proximal DVT in the right lower extremity. Negative study for calf DVT in the right lower extremity. Negative study for superficial thrombophlebitis in the imaged segments of the right lower extremity. Direct Marketing Representative: PHU Transcribe Date/Time: Sep 18 2024 9:14A Dictated by : ZACH THOMPSON MD This examination was interpreted and the report reviewed and electronically signed by: ZACH THOMPSON MD on Sep 18 2024 9:20AM [facility] * * *Final Report* [...] spontaneous respirophasic flow. Normal response to augmentation. [facility] Provider, Kalyan [facility] - 09/18/2024 * * *Final Report* * [...] imaged segments of the right lower extremity. Direct Marketing Representative: [facility] Transcribe Date/Time: Sep 18 2024 9:14A Dictated by : ZACH THOMPSON MD This examination was interpreted and the report reviewed and electronically signed by: ZACH THOMPSON MD on Sep 18 2024 9:20AM [facility] Radiology Study observation (narrative) [facility] US Lower extremity vein - ri ghtOrdered By: Ccf Provider on 09-18-2024 [facility] Urate [Mass/Vol]on Interpretation and review of laboratory results Normal [facility] VITAMIN B12on 09-18-2024 Cobalamin (Vitamin B12) [Mass/Vol] 433 pg/mL 232 - 1245 pg/mL [facility] XR Ankle - right AP and Late ral and obliqueon 09-18-2024 IMPRESSION: Marked right ankle soft tissue swelling. Osteopenia and suspicion of nondisplaced calcaneus fracture. Degenerative changes, calcaneal enthesophytes, and pes planus. Direct Marketing Representative: [facility] Transcribe Date/Time: Sep 18 2024 12:20P Dictated by : GERTRUDIS MONCADA MD This examination was interpreted and the report reviewed and electronically signed by: GERTRUDIS MONCADA MD on Sep 18 2024 12:22PM [facility] DIVISION OF RADIOLOGY * * *Final Report* [...] Degenerative changes, calcaneal enthesophytes, and pes planus. Direct Marketing Representative: PHU Transcribe Date/Time: Sep 18 2024 12:20P Dictated by : GERTRUDIS MONCADA MD This examination was interpreted and the report reviewed and electronically signed by: GERTRUDIS MONCADA MD on Sep 18 2024 12:22PM EST [facility] XR Ankle - right AP and Late ral and obliqueOrdered By: Ccomar Provider on 09-18-2024 [facility] ZINC BLDOrdered By: Cheryl rodriguez on 09-18-2024 Zinc [Mass/Vol] 55 ug/dL Low 60 - 120 ug/dL [facility] Comment on above: This test was corina jiang, and its performance characteristics determined by the [facility] Department of Pathology and Laboratory Medicine. It has not been cleared or approved by the FDA. The [facility] Department of Pathology and Laboratory Medicine is regulated under CLIA as qualified to perform high-complexity testing. This test is used for clinical purposes. It should not be regarded as investigational or for research. Zinc [Mass/Vol]Ordered By: Roxane Sinha on 09-18-2024 Interpretation and review of laboratory results Abnormal [facility] RUBEN BY IFA SCREENon 09-17-20 24 Nuclear Ab pattern (S) [Interp] Nuclear homogeneous Normal [facility] Comment on above: Order Comment: Speci men Type: BLOOD SPECIMEN Ordering Facility: [facility] Address: [address] [place] [address] Performed By: #### 2 276-4, 2131-9, 55697-3, 2284-06 #### [facility] CLIA [id number] [address] [place] [address] [place] Nuclear Ab Ql (S) Positive Abnormal Negative [facility] Comment on above: Order Comment: Speci men Type: BLOOD SPECIMEN Ordering Facility: [facility] Address: [address] [place] [address] Result Comment: Anti -nuclear antibody test is used as an aid in diagnosis of systemic autoimmune diseases. Where positive and clinically warranted, follow-up using disease-specific testing is recommended. Low positive titers are not uncommon with advanced age, certain chronic infections, and malignancies among others. Test methodology: Indirect fluorescence immunoassay (IFA) using HEp-2 cells. 1:320 Performed By: #### 2 276-4, 2131-9, 60726-5, 2284-06 #### [facility] CLIA [id number] [address] [place] [address] [place] BCR/ABL1 P190 NCN P210 % IS MR BLOODon 09-17-2024 BCR/ABL1 P190 NCN(%BCR/ABL1:ABL1) N/A [facility] Comment on above: Order Comment: Speci men Type: BLOOD SPECIMEN Ordering Facility: [facility] Address: [address] [place] [address] Performed By: #### B CRPB1 #### [facility] CLIA [id number] [facility] [place] [address] [place] #### ISMRNCNPB #### [facility] CLIA [id number] [address] [place] [address] [place] BCR/ABL1 P210 %IS N/A Normal [facility] Comment on above: Order Comment: Speci men Type: BLOOD SPECIMEN Ordering Facility: [facility] Address: [address] [place] [address] Performed By: #### B CRPB1 #### [facility] CLIA [id number] [address] [place] [address] [place] #### ISMRNCNPB #### [facility] CLIA [id number] [address] [place] [address] [place] BCR/ABL1 P210 MR N/A Normal [facility] Comment on above: Order Comment: Speci men Type: BLOOD SPECIMEN Ordering Facility: [facility] Address: [address] [place] [address] Performed By: #### B CRPB1 #### [facility] CLIA [id number] [address] [place] [address] [place] #### ISMRNCNPB #### [facility] CLIA [id number] [address] [place] [address] [place] BCR/ABL1 P210 AND P190 DIAGN OSTIC PCR BLOODon 09-17-2024 BCR/ABL1 P210 AND P190 DIAGNOSTIC PCR BLOOD RESULT [facility] Comment on above: Order Comment: Speci men Type: BLOOD SPECIMEN Ordering Facility: [facility] Address: [address] [place] [address] Result Comment: BCR/ ABL1 p210 and p190 Diagnostic PCR Laboratory Accession Number: [id number] Sample Type: Peripheral Blood Result: NOT DETECTED; [...] this sample, and cDNA prepared by reverse machinery repair maintenance supervisor. Real time PCR was performed in two separate reactions, using primers for e13a2 and/or e14a2 BCR/ABL1 fusion transcripts and ABL1 transcripts for p210 detection and primers for e1a2 BCR/ABL1 fusion transcripts and ABL1 transcripts for p190 detection (QuantideX BCR/ABL IS assay, [employer], [place], [place]). This assay has a limit [...] developed and its performance characteristics determined by [facility]'s Pathology and Laboratory Medicine Department. It has not been cleared or approved by the FDA. [facility]'s Pathology and Laboratory Medicine Department is regulated under CLIA as certified to perform high-complexity testing. This test is used for clinical purposes. It should not be regarded as investigational or for research. Testing and interpretation performed at [facility], [address] [place] [address]. CLIA Number: [id number] As reviewed by José Miguel Persaud MD Performed By: #### B CRPB1 #### [facility] CLIA [id number] [address] [place] [address] #### ISMRNCNPB #### [facility] CLIA [id number] [address] [place], [place] [id number] [place] [facility] CBC W Ordered Manual Differe ntial panel (Bld)on 09-17-2024 Basophils (Bld) [#/Vol] 0.03 10*3/uL [facility] Basophils/100 WBC (Bld) 0.3 % [facility] Differential cell count method Nom (Bld) Auto [facility] Eosinophils (Bld) [#/Vol] 0.07 10*3/uL [facility] Eosinophils/100 WBC (Bld) 0.7 % [facility] Erythrocyte distribution width (RBC) [Ratio] 14.2 % 11.5 - 15.0 % [facility] Hematocrit (Bld) [Volume fraction] 35.2 % Low 36.0 - 46.0 % [facility] Hemoglobin (Bld) [Mass/Vol] 11.4 g/dL Low 11.5 - 15.5 g/dL [facility] Immature granulocytes (Bld) [#/Vol] 0.06 10*3/uL [facility] Immature granulocytes/100 WBC (Bld) 0.6 % [facility] Interpretation and review of laboratory results Abnormal [facility] Lymphocytes (Bld) [#/Vol] 1.42 10*3/uL [facility] Lymphocytes/100 WBC (Bld) 15.1 % [facility] MCH (RBC) [Entitic mass] 28.6 pg 26.0 - 34.0 pg [facility] MCHC (RBC) [Mass/Vol] 32.4 g/dL 30.5 - 36.0 g/dL [facility] MCV (RBC) [Entitic vol] 88.2 fL 80.0 - 100.0 fL [facility] Monocytes (Bld) [#/Vol] 0.52 10*3/uL NINF [facility] Monocytes/100 WBC (Bld) 5.5 % [facility] Neutrophils (Bld) [#/Vol] 7.33 10*3/uL [facility] Neutrophils/100 WBC (Bld) 77.8 % [facility] Nucleated RBC (Bld) [#/Vol] NINF [facility] Nucleated RBC/100 WBC (Bld) [Ratio] 0.0 % /100 WBC [facility] Platelet mean volume (Bld) [Entitic vol] 9.8 fL 9.0 - 12.7 fL [facility] Platelets (Bld) [#/Vol] 409 10*3/uL High [facility] RBC (Bld) [#/Vol] 3.99 10*6/uL 3.90 - 5.2 0 m/uL [facility] WBC (Bld) [#/Vol] 9.43 10*3/uL [facility] This is an appended report. These results have been appended to a previously verified report. [facility] Basophils (Bld) [#/Vol] 0.03 10*3/uL Normal <0.11 [facility] Comment on above: Order Comment: Speci men Type: BLOOD SPECIMENOrdering Facility: [facility] Address: [address] [place] [address] Performed By: #### 5 7782-5, 92923-0, [id number], STFREV ####[facility] [id number] [place] [address] [place] Basophils/100 WBC (Bld) 0.3 % Normal C [facility] Comment on above: Order Comment: Speci men Type: BLOOD SPECIMENOrdering Facility: [facility] Address: [address] [place] [address] Performed By: #### 5 7782-5, 37591-6, [id number], STFREV ####[facility] [id number] [place] [address] [place] Differential cell count method Nom (Bld) Auto Normal [facility] Comment on above: Order Comment: Speci men Type: BLOOD SPECIMENOrdering Facility: [facility] Address: [address] [place] [address] Performed By: #### 5 7782-5, 05893-8, [id number], STFREV ####[facility] [id number] [place] [address] [place] Eosinophils (Bld) [#/Vol] 0.07 10*3/uL Normal <0.46 [facility] Comment on above: Order Comment: Speci men Type: BLOOD SPECIMENOrdering Facility: [facility] Address: [address] [place] [address] Performed By: #### 5 7782-5, 43668-9, [id number], STFREV ####[facility] [id number] [place] [address] [place] Eosinophils/100 WBC (Bld) 0.7 % Normal [facility] Comment on above: Order Comment: Speci men Type: BLOOD SPECIMENOrdering Facility: [facility] Address: [address] [place] [address] Performed By: #### 5 7782-5, 86364-6, [id number], STFREV ####[facility] [id number] [place] [address] [place] Erythrocyte distribution width (RBC) [Ratio] 14.2 % Normal 11.5-15.0 [facility] Comment on above: Order Comment: Speci men Type: BLOOD SPECIMENOrdering Facility: [facility] Address: [address] [place] [address] Performed By: #### 5 7782-5, 29600-2, [id number], STFREV ####[facility]CLIA [id number] [place] [address] [place] Hematocrit (Bld) [Volume fraction] 35.2 % Low 36.0-46.0 [facility] Comment on above: Order Comment: Speci men Type: BLOOD SPECIMENOrdering Facility: [facility] Address: [address] [place] [address] Performed By: #### 5 7782-5, 21168-1, [id number], STFREV ####[facility] LABCLIA [id number] [place] [address] [place] Hemoglobin (Bld) [Mass/Vol] 11.4 g/dL Low 11.5-15.5 [facility] Comment on above: Order Comment: Speci men Type: BLOOD SPECIMENOrdering Facility: [facility] Address: [address] [place] [address] Performed By: #### 5 7782-5, 96673-7, [id number], STFREV ####[facility] LABCLIA [id number] [place] [address] [place] Immature granulocytes (Bld) [#/Vol] 0.06 10*3/uL Normal <0.10 [facility] Comment on above: Order Comment: Speci men Type: BLOOD SPECIMENOrdering Facility: [facility] Address: [address] [place] [address] Performed By: #### 5 7782-5, 85645-7, [id number], STFREV ####[facility] LABCLIA [id number] [place] [address] [place] Immature granulocytes/100 WBC (Bld) 0.6 % Normal [facility] Comment on above: Order Comment: Speci men Type: BLOOD SPECIMENOrdering Facility: [facility] Address: [address] [place] [address] Performed By: #### 5 7782-5, 33262-3, [id number], STFREV ####[facility] LABCLIA [id number] [facility] [place] [address] [place] Lymphocytes (Bld) [#/Vol] 1.42 10*3/uL Normal 1.00-4.00 [facility] Comment on above: Order Comment: Speci men Type: BLOOD SPECIMENOrdering Facility: [facility] Address: [address] [place] [address] Performed By: #### 5 7782-5, 73550-1, [id number], STFREV ####[facility] LABCLIA [id number] [place] [address] [place] Lymphocytes/100 WBC (Bld) 15.1 % Normal [facility] Comment on above: Order Comment: Speci men Type: BLOOD SPECIMENOrdering Facility: [facility] Address: [address] [place] [address] Performed By: #### 5 7782-5, 60470-0, [id number], STFREV ####[facility] LABCLIA [id number] [place] [address] [place] MCH (RBC) [Entitic mass] 28.6 pg Normal 26.0-34.0 [facility] Comment on above: Order Comment: Speci men Type: BLOOD SPECIMENOrdering Facility: [facility] Address: [address] [place] [address] Performed By: #### 5 7782-5, 56210-1, [id number], STFREV ####[facility] LABCLIA [id number] [place] [address] [place] MCHC (RBC) [Mass/Vol] 32.4 g/dL Normal 30.5-36.0 [facility] Comment on above: Order Comment: Speci men Type: BLOOD SPECIMENOrdering Facility: [facility] Address: [address] [place] [address] Performed By: #### 5 7782-5, 81654-5, [id number], STFREV ####[facility] LABCLIA [id number] [place] [address] [place] MCV (RBC) [Entitic vol] 88.2 fL Normal 80.0-100.0 [facility] Comment on above: Order Comment: Speci men Type: BLOOD SPECIMENOrdering Facility: [facility] Address: [address] [place] [address] Performed By: #### 5 7782-5, 35463-3, [id number], STFREV ####[facility] LABCLIA [id number] [place] [address] [place] Monocytes (Bld) [#/Vol] 0.52 10*3/uL Normal <0.87 [facility] Comment on above: Order Comment: Speci men Type: BLOOD SPECIMENOrdering Facility: [facility] Address: [address] [place] [address] Performed By: #### 5 7782-5, 88270-9, [id number], STFREV ####[facility] LABCLIA [id number] [place] [address] [place] Monocytes/100 WBC (Bld) 5.5 % Normal [facility] Comment on above: Order Comment: Speci men Type: BLOOD SPECIMENOrdering Facility: [facility] Address: [address] [place] [address] Performed By: #### 5 7782-5, 92990-4, [id number], STFREV ####[facility] LABCLIA [id number] [place] [address] [place] Neutrophils (Bld) [#/Vol] 7.33 10*3/uL Normal 1.45-7.50 [facility] Comment on above: Order Comment: Speci men Type: BLOOD SPECIMENOrdering Facility: [facility] Address: [address] [place] [address] Performed By: #### 5 7782-5, 73518-1, [id number], STFREV ####[facility] LABCLIA [id number] [place] [address] [place] Neutrophils/100 WBC (Bld) 77.8 % Normal [facility] Comment on above: Order Comment: Speci men Type: BLOOD SPECIMENOrdering Facility: [facility] Address: [address] [place] [address] Performed By: #### 5 7782-5, 32971-7, [id number], STFREV ####[facility] LABCLIA [id number] [place] [address] [place] Nucleated RBC (Bld) [#/Vol] 10*3/uL Normal <0.01 [facility] Comment on above: Order Comment: Speci men Type: BLOOD SPECIMENOrdering Facility: [facility] Address: [address] [place] [address] Performed By: #### 5 7782-5, 93153-9, [id number], STFREV ####[facility] LABCLIA [id number] [place] [address] [place] Nucleated RBC/100 WBC (Bld) [Ratio] 0.0 /[address] [facility] Comment on above: Order Comment: Speci men Type: BLOOD SPECIMENOrdering Facility: [facility] Address: [address] [place] [address] Performed By: #### 5 7782-5, 31110-2, [id number], STFREV ####[facility] LABCLIA [id number] [place] [address] [place] Platelet mean volume (Bld) [Entitic vol] 9.8 fL Normal 9.0-12.7 [facility] Comment on above: Order Comment: Speci men Type: BLOOD SPECIMENOrdering Facility: [facility] Address: [address] [place] [address] Performed By: #### 5 7782-5, 24910-9, [id number], STFREV ####[facility] LABCLIA [id number] [place] [address] [place] Platelets (Bld) [#/Vol] 409 10*3/uL High 150-400 [facility] Comment on above: Order Comment: Speci men Type: BLOOD SPECIMENOrdering Facility: [facility] Address: [address] [place] [address] [place] [address] Performed By: #### 5 7782-5, 60482-6, [id number], STFREV ####[facility] LABCLIA [id number] [place] [address] [place] RBC (Bld) [#/Vol] 3.99 10*6/uL Normal 3.90-5.20 [facility] Comment on above: Order Comment: Speci men Type: BLOOD SPECIMENOrdering Facility: [facility] Address: [address] [place] [address] Performed By: #### 5 7782-5, 94135-5, [id number], STFREV ####[facility] LABCLIA [id number] [place] [address] [place] WBC (Bld) [#/Vol] 9.43 10*3/uL Normal 3.70-11.00 [facility] Comment on above: Order Comment: Speci men Type: BLOOD SPECIMENOrdering Facility: [facility] Address: [address] [place] [address] Performed By: #### 5 7782-5, 21943-7, [id number], STFREV ####[facility] LABCLIA [id number] [place] [address] [place] CNOVSPon 09-17-2024 CNOVSP Visit (SP) Office (HEMAST) YUSUF MEDINA ([id number]) 1935 [facility] Date Time Provider Department 09/17/24 3:10 PM [...] office to be evaluated for leukocytosis. ASSESSMENT: (D74.735) Leukocytosis, unspecified type (primary encounter diagnosis) Comment: [...] L REMV CATARACT EXTRACAP,INSERT LENS Bilateral 2020 [facility] FAMILY HISTORY Problem Relation Age of Onset [...] as needed for sedation. blood sugar diagnostic (WellUCH ULTRA TEST) test strip Test blood sugar once daily glipiZIDE (GLUCOTROL XL) 2.5 mg 24 hr tablet TAKE 1 TABLET BY MOUTH ONCE DAILY lisinopril-hydroCHLORO thiazide (ZESTORETIC) 20-25 mg per tablet Take 1 tablet by mouth once daily. pioglitazone (more content not included)... Normal [facility] COPPER BLOODon 09-17-2024 Copper [Mass/Vol] 128 ug/dL Normal 80-155 [facility] Comment on above: Order Comment: Speci men Type: BLOOD SPECIMEN [facility] Address: [address] [place] [address] Result Comment: This test was developed, and its performance characteristics determined by the [facility] Department of Pathology and Laboratory Medicine. It has not been cleared or approved by the FDA. The [facility] Department of Pathology and Laboratory Medicine is regulated under CLIA as qualified to perform high-complexity testing. This test is used for clinical purposes. It should not be regarded as investigational or for research. Performed By: #### B CRPB1 #### [facility] CLIA [id number] [address] [place] [address] [place] #### [id number] #### [facility] CLIA [id number] [address] [place] [address] [place] Centromere Ab IF Ql (S)on Centromere Ab Qn (S) <0.2 Normal <1.0 [facility] Comment on above: Order Comment: Fan meade Type: BLOOD SPECIMEN [facility] Address: [address] [place] [address] Result Comment: Anti -centromere antibody is used as in aid in diagnosis of systemic sclerosis. Clinical correlation is required. Test Methodology: Multiplex flow immunoassay. Performed By: #### 2 276-4, 2132-9, 63125-5, 2284-8 #### [facility] CLIA [id number] [address] [place] [address] [place] CENTROMERE AB QUAL Negative Normal Negative [facility] Comment on above: Order Comment: Speci men Type: BLOOD SPECIMEN [facility] Address: [address] [place] [address] Performed By: #### 2 276-4, 9, 05428-4, 8 #### [facility] CLIA [id number] [address] [place] [address] [place] Chromatin Ab Qnon 09-17-2024 CHROMATIN AB QUAL Negative Normal Negative [facility] Comment on above: Order Comment: Speci men Type: BLOOD SPECIMEN [facility] Address: [address] [place] [address] Performed By: #### 2 276-4, 9, 18287-4, 8 #### [facility] CLIA [id number] [address] [place] [address] [place] Chromatin Ab SerPl-aCncon Chromatin Ab Qn <0.2 Normal <1.0 [facility] Comment on above: Order Comment: Speci men Type: BLOOD SPECIMEN [facility] Address: [address] [place] [address] Result Comment: Test Methodology: Multiplex flow immunoassay. Performed By: #### 2 276-4, 9, 33268-8, 8 #### [facility] CLIA [id number] [address] [place] [address] [place] Cyclic citrullinated peptide IgG Qnon 09-17-2024 CCP ANTIBODY IGG QUALITATIVE Negative Normal Negative [facility] Comment on above: Order Comment: Speci men Type: BLOOD SPECIMEN [facility] Address: [address] [place] [address] Performed By: #### 2 276-4, 9, 99331-7, 2284-06 #### [facility] CLIA [id number] [address] [place] [address] [place] DNA double strand Ab IA Qn ( S)on 09-17-2024 DNA ANTIBODY 175 IU/mL Normal <=200 [facility] Comment on above: Order Comment: Speci men Type: BLOOD SPECIMEN [facility] Address: [address] [place] [address] Result Comment: Nega tive: <200 IU/mL Equivocal: 201-300 IU/mL Moderate Positive: 301-800 IU/mL Strong Positive: >801 IU/mL Performed By: #### 2 276-4, 9, 56721-6, 8 #### [facility] CLIA [id number] [address] [place] [address] [place] DNA ANTIBODY QUALITATIVE INTERPRETATION Negative Normal Negative [facility] Comment on above: Order Comment: Speci men Type: BLOOD SPECIMEN [facility] Address: [address] [place] [address] Performed By: #### 2 276-4, 9, 77139-1, 2284-06 #### [facility] CLIA [id number] [address] [place] [address] [place] EUFEMIA Jo1 Ab Ser-aCncon 2023 Nadege-1 extractable nuclear Ab Qn (S) <0.2 Normal <1.0 [facility] Comment on above: Order Comment: Speci men Type: BLOOD SPECIMEN [facility] Address: [address] [place] [address] Performed By: #### 2 276-4, 9, 51659-9, 2284-06 #### [facility] CLIA [id number] [address] [place] [address] [place] EUFEMIA [employer] Ab Ser-aCncon 2023 Ribonucleoprotein extractable nuclear Ab Qn (S) <0.2 Normal <1.0 [facility] Comment on above: Order Comment: Speci men Type: BLOOD SPECIMEN [facility] Address: [address] [place] [address] Performed By: #### 2 276-4, 2131-9, 28698-8, 8 #### [facility] CLIA [id number] [address] [place] [address] [place] Ribonucleoprotein extractable nuclear Ab Qn (S) 2.3 AI High <1.0 [facility] Comment on above: Order Comment: Speci men Type: BLOOD SPECIMEN [facility] Address: [address] [place] [address] Performed By: #### 2 276-4, 9, 71081-9, 2284-06 #### [facility] CLIA [id number] [address] [place] [address] [place] EUFEMIA SM IgG Ser-aCncon 2023 Bang extractable nuclear IgG Qn (S) <0.2 Normal <1.0 [facility] Comment on above: Order Comment: Speci men Type: BLOOD SPECIMEN [facility] Address: [address] [place] [address] Performed By: #### 2 276-4, 9, 54453-7, 2284-06 #### [facility] CLIA [id number] [address] [place] [address] [place] EUFEMIA SS-A Ab Ser-aCncon 09-17 Sjogrens syndrome-A extractable nuclear Ab Qn (S) <0.2 Normal <1.0 [facility] Comment on above: Order Comment: Speci men Type: BLOOD SPECIMEN [facility] Address: [address] [place] [address] Result Comment: Test Methodology: Multiplex flow immunoassay. Performed By: #### 2 276-4, 9, 31663-5, 2284-06 #### [facility] CLIA [id number] [address] [place] [address] [place] EUFEMIA SS-B Ab Ser-aCncon 09-17 Sjogrens syndrome-B extractable nuclear Ab Qn (S) <0.2 Normal <1.0 [facility] Comment on above: Order Comment: Fan meade Type: BLOOD SPECIMEN [facility] Address: [address] [place] [address] Result Comment: Anti -SSB (anti-La) antibody is used as an aid in diagnosis of a variety of systemic autoimmune diseases, especially for Sjogren's syndrome and systemic lupus erythematosus. Clinical correlation is required. Test Methodology: Multiplex flow immunoassay. Performed By: #### 2 276-4, 2131-9, 35396-7, 8 #### [facility] CLIA [id number] [address] [place] [address] [place] Ferritin SerPl-mCncon 2023 Ferritin [Mass/Vol] 59.9 ng/mL Normal 14.7-205.1 [facility] Comment on above: Order Comment: Fan meade Type: BLOOD SPECIMENOrdering Facility: [facility] Address: [address] [place] [address] Performed By: #### 5 0190-8, 3084-1, 2276-4 ####[facility] LABCLIA [id number] [place] [address] [place] Folate SerPl-mCncon 09-17-20 Folate [Mass/Vol] 18.8 ng/mL Normal >4.7 [facility] Comment on above: Order Comment: Fan meade Type: BLOOD SPECIMEN [facility] Address: [address] [place] [address] Performed By: #### 2 276-4, 2131-9, 60241-7, 8 #### [facility] CLIA [id number] [address] [place] [address] [place] Hcys SerPl-sCncon 09-17-2024 Homocysteine [Moles/Vol] 21.2 umol/L High <15.1 [facility] Comment on above: Order Comment: Fan meade Type: BLOOD SPECIMEN [facility] Address: [address] [place] [address] Performed By: #### 2 276-4, 2131-9, 64986-0, 8 #### [facility] CLIA [id number] [address] [place], [place] [address] [place] IMMUNOFIXATION SCREEN, SERUM on [...] monoclonal gammopathy. Clinical correlation is necessary. Normal [facility] Comment on above: Order Comment: Fan meade Type: BLOOD SPECIMEN [facility] Address: [address] [place] [address] Performed By: #### 2 276-4, 9, 73544-6, 8 #### [facility] CLIA [id number] [address] [place] [address] [place] MPA RESULT A poorly defined region of restricted mobility is present that may represent an M protein. Abnormal No M protein is identified. [facility] Comment on above: Order Comment: Fan meade Type: BLOOD SPECIMEN [facility] Address: [address] [place] [address] Performed By: #### 2 276-4, 9, 72526-8, 8 #### [facility] CLIA [id number] [address] [place], [place] [address] [place] STAFF REVIEW (MPA) Reviewed by Brianne Mosley M.D., Ph.D Normal [facility] Comment on above: Order Comment: Fan meade Type: BLOOD SPECIMEN [facility] Address: [address] [place] [address] Performed By: #### 2 276-4, 9, 89469-0, 8 #### [facility] CLIA [id number] [address] [place] [address] [place] IMMUNOGLOBULINS,IGG,IGA,IGMo n 09-17-2024 IgA [Mass/Vol] 142 mg/dL Normal 70-400 [facility] Comment on above: Order Comment: Speci men Type: BLOOD SPECIMEN [facility] Address: [address] [place] [address] Performed By: #### 2 276-4, 2131-9, 77277-8, 8 #### [facility] CLIA [id number] [address] [place] [address] [place] IgG [Mass/Vol] 750 mg/dL Normal 700-1600 [facility] Comment on above: Order Comment: Speci men Type: BLOOD SPECIMEN [facility] Address: [address] [place] [address] Performed By: #### 2 276-4, 2131-9, 38135-2, 8 #### [facility] CLIA [id number] [address] [place] [address] [place] IgM [Mass/Vol] 23 mg/dL Low 40-230 [facility] Comment on above: Order Comment: Speci men Type: BLOOD SPECIMEN [facility] Address: [address] [place] [address] Performed By: #### 2 276-4, 2131-9, 72617-2, 8 #### [facility] CLIA [id number] [address] [place] [address] [place] Iron and Iron binding capaci ty panelon 09-17-2024 Iron [Mass/Vol] 29 ug/dL Low 41-186 [facility] Comment on above: Order Comment: Speci men Type: BLOOD SPECIMENOrdering Facility: [facility] Address: [address] [place] [address] Performed By: #### 5 0190-8, 4-1, 2275- ####[facility] LABCLIA [id number] [place] [address] [place] Iron binding capacity [Mass/Vol] 407 ug/dL High 232-386 [facility] Comment on above: Order Comment: Speci men Type: BLOOD SPECIMENOrdering Facility: [facility] Address: [address] [place] [address] Performed By: #### 5 0190-8, 4-1, 2275- ####[facility] LABCLIA [id number] [place] [address] [place] Iron/TIBC [Molar ratio] 7.1 % Low 15.0-57.0 [facility] Comment on above: Order Comment: Speci men Type: BLOOD SPECIMENOrdering Facility: [facility] Address: [address] [place] [address] Performed By: #### 5 0190-8, 3083-1, 2276-02 ####[facility] LABCLIA [id number] [place] [address] [place] Nadege-1 extractable nuclear Ab Qn (S)on 09-17-2024 NADEGE 1 ANTIBODY QUAL Negative Normal Negative [facility] Comment on above: Order Comment: Speci men Type: BLOOD SPECIMEN [facility] Address: [address] [place] [address] Result Comment: Anti -NADEGE-1 antibody is used as an aid in diagnosis of polymyositis and dermatomyositis especially with pulmonary involvement. A negative result cannot rule out polymyositis or dermatomyositis. Clinical correlation is required. Test Methodology: Multiplex flow immunoassay. Performed By: #### 2 276-4, 2132-9, 02426-5, 2284-8 #### [facility] CLIA [id number] [address] [place] [address] [place] KAPPA/BWOEN,FREE,SERon 11-04- 2024 Immunoglobulin light chains.kappa.free (S) [Mass/Vol] 45.2 mg/L High 3.3-19.4 [facility] Comment on above: Order Comment: Speci men Type: BLOOD SPECIMENOrdering Facility: [facility] Address: [address] [place] [address] Result Comment: Rare ly, increased serum free light chains levels may not be detected or accurately quantified due to prozone phenomenon or in high viscosity samples using this immunoturbidimetric assay. Correlation with other laboratory results and clinical findings is recommended. The [place] Free Light Chain was performed using the Binding Site Optilite immunoturbidimetric method. Result obtained with different assay methods or kits cannot be used interchangeably. Performed By: #### K LFRS ####[facility] LABCLIA [id number] [place] [address] [place] Immunoglobulin light chains.kappa/Immunoglob ulin light chains.lambda (S) [Mass ratio] 1.57 Normal 0.26-1.65 [facility] Comment on above: Order Comment: Speci halina Type: BLOOD SPECIMENOrdering Facility: [facility] Address: [address] [place] [address] Performed By: #### K LFRS ####[facility] LABCLIA [id number] [place] [address] [place] Immunoglobulin light chains.lambda.free [Mass/Vol] 28.8 mg/L High 5.7-26.3 [facility] Comment on above: Order Comment: Speci men Type: BLOOD SPECIMENOrdering Facility: [facility] Address: [address] [place] [address] Result Comment: Rare ly, increased serum free [...] used interchangeably. Performed By: #### K LFRS ####[facility]CLIA [id number] [place] [address] [place] Methylmalonate SerPl-sCncon 09-17-2024 Methylmalonate [Moles/Vol] 0.29 umol/L Normal <=0.40 [facility] Comment on above: Order Comment: Fan meade Type: BLOOD SPECIMEN [facility] Address: [address] [place] [address] Result Comment: This test was developed, and its performance characteristics determined by the [facility] Department of Pathology and Laboratory Medicine. It has not been cleared or approved by the FDA. The [facility] Department of Pathology and Laboratory Medicine is regulated under CLIA as qualified to perform high-complexity testing. This test is used for clinical purposes. It should not be regarded as investigational or for research. Performed By: #### 2 276-4, 9, 23756-3, 8 #### [facility] IA [id number] [address] [place] [address] [place] Nuclear Ab IA Ql (S)on 09-17 RUBEN SCR QUAL Positive Abnormal Negative [facility] Comment on above: Order Comment: Fan meade Type: BLOOD SPECIMEN [facility] [facility] Address: [address] [place] [address] Result Comment: The qualitative antinuclear antibody screen test performed using the following antigens: dsDNA, Chromatin, Ribosomal P, SS-A 60, SS-A 52, SS-B, Sm, SmRNP, [employer] A, [employer] 68, Scl-70, Nadege-1, and Centromere B. Methodology: Multiplex flow immunoassay. Performed By: #### 2 276-4, 9, 45247-9, 8 #### [facility] CLIA [id number] [address] [place] [address] [place] PATHOLOGIST INTERPRETATION C BC/DIFFon 09-17-2024 Emt/Dispatcher review Mckay (Unsp spec) [Interp] Reviewed by Dominga Johnson MD Normal [facility] Comment on above: Order Comment: Fan meade Type: BLOOD SPECIMENOrdering Facility: [facility] Address: [address] [place] [address] Performed By: #### 5 7782-5, 46957-7, [id number], STFREV ####[facility] [id number] [place] [address] [place] STAFF REVIEW, CBCDIF Normal [facility] Comment on above: Order Comment: Speci men Type: BLOOD SPECIMENOrdering Facility: [facility] Address: [address] [place] [address] Result Comment: Norm ocytic anemia without polychromasia Thrombocytosis Performed By: #### 5 7782-5, 92283-5, [id number], STFREV ####[facility] [id number] [place] [address] [place] RBC MORPHOLOGYon 09-17-2024 Platelets Estimate (Bld) [#/Vol] Increased Normal [facility] Comment on above: Order Comment: Speci men Type: BLOOD SPECIMENOrdering Facility: [facility] Address: [address] [place] [address] Performed By: #### 5 7782-5, 79309-6, [id number], STFREV ####[facility]IA [id number] [place] [address] [place] RBC morphology finding Nom (Bld) Reviewed: unremarkable Normal [facility] Comment on above: Order Comment: Speci men Type: BLOOD SPECIMENOrdering Facility: [facility] Address: [address] [place] [address] Performed By: #### 5 7782-5, 43334-6, [id number], STFREV ####[facility]IA [id number] [place] [address] [place] RETICULOCYTE COUNTon 024 Reticulocytes (Bld) [#/Vol] 0.078 10*3/uL [facility] Retics #on 09-17-2024 Reticulocytes (Bld) [#/Vol] 0.78321 10*3/uL Normal 0.018-0.100 [facility] Comment on above: Order Comment: Fan meade Type: BLOOD SPECIMENOrdering Facility: [facility] Address: [address] [place] [address] Performed By: #### 5 7782-5, 17066-8, [id number], STFREV ####[facility]IA [id number] [place] [address] [place] Reticulocytes (Bld) [#/Vol]o n 09-17-2024 Interpretation and review of laboratory results Normal [facility] Reticulocytes/100 RBC (Bld) 2.0 % 0.4 - 2.0 % [facility] Reticulocytes/100 RBC (Bld) 2.0 % Normal 0.4-2.0 [facility] Comment on above: Order Comment: Fan meade Type: BLOOD SPECIMENOrdering Facility: [facility] Address: [address] [place] [address] Performed By: #### 5 7782-5, 72412-8, [id number], STFREV ####[facility]IA [id number] [place] [address] [place] Ribonucleoprotein extractabl e nuclear Ab Qn (S)on 09-17-2024 ANTI-[employer] QUAL Positive Abnormal Negative [facility] Comment on above: Order Comment: Fan meade Type: BLOOD SPECIMEN [facility] Address: [address] [place] [address] Performed By: #### 2 276-4, 2132-9, 48066-7, 2284-8 #### [facility] CLIA [id number] [address] [place] [address] [place] RIBOSOMAL [employer] QUAL Negative Normal Negative [facility] Comment on above: Order Comment: Fan meade Type: BLOOD SPECIMEN [facility] Address: [address] [place] [address] Result Comment: Anti -Ribosomal RNA (Ribosomal P) antibody is used as an aid in diagnosis of systemic autoimmune diseases especially systemic lupus erythematosus and mixed connective tissue disease. Cross-reactivity with Anti-bang antibody is not uncommon. Clinical correlation is required. Test Methodology: Multiplex flow immunoassay. Performed By: #### 2 276-4, 9, 29499-9, 2284-06 #### [facility] CLIA [id number] [address] [place] [address] [place] SCL-70 extractable nuclear I gG IA Qn (S)on 09-17-2024 SCLERODERMA AB QUAL Negative Normal Negative [facility] Comment on above: Order Comment: Speci men Type: BLOOD SPECIMEN [facility] Address: [address] [place] [address] Performed By: #### 2 276-4, 9, 91164-6, 2284-06 #### [facility] CLIA [id number] [address] [place] [address] [place] SCLERODERMA IGG AB <0.2 Normal <1.0 [facility] Comment on above: Order Comment: Speci men Type: BLOOD SPECIMEN [facility] Address: [address] [place] [address] Result Comment: Scl- 70/Scleroderma antibody test is used as an aid in diagnosis of systemic sclerosis especially the diffuse cutaneous form. A negative result cannot rule out systemic sclerosis. The final interpretation should consider clinical picture and other test results such as anti-centromere antibody. Test Methodology: Multiplex flow immunoassay. Performed By: #### 2 276-4, 9, 16318-3, 2284-06 #### [facility] CLIA [id number] [address] [place] [address] [place] Sjogrens syndrome-A extracta ble nuclear Ab Qn (S)on 09-17-2024 SSA ANTIBODY QUAL Negative Normal Negative [facility] Comment on above: Order Comment: Speci men Type: BLOOD SPECIMEN [facility] Address: [address] [place] [address] Performed By: #### 2 276-4, 2131-9, 48768-0, 8 #### [facility] CLIA [id number] [address] [place] [address] [place] Sjogrens syndrome-B extracta ble nuclear Ab Qn (S)on 09-17-2024 SSB ANTIBODY QUAL Negative Normal Negative [facility] Comment on above: Order Comment: Speci men Type: BLOOD SPECIMEN [facility] Address: [address] [place] [address] Performed By: #### 2 276-4, 9, 16317-4, 8 #### [facility] CLIA [id number] [address] [place] [address] [place] Bang extractable nuclear Ig G Qn (S)on 09-17-2024 SM ANTIBODY QUAL Negative Normal Negative [facility] Comment on above: Order Comment: Speci men Type: BLOOD SPECIMEN [facility] Address: [address] [place] [address] Result Comment: Anti -Sm (Bang) antibody is used as an aid in diagnosis of systemic lupus erythematosus and its presence is associated with renal disease. A negative result cannot rule out systemic lupus erythematosus. Clinical correlation is required. Test Methodology: Multiplex flow immunoassay. Performed By: #### 2 276-4, 9, 88534-9, 8 #### [facility] CLIA [id number] [address] [place] [address] [place] Urate SerPl-mCncon 4 Urate [Mass/Vol] 5.6 mg/dL Normal 2.5-6.6 [facility] Comment on above: Order Comment: Speci men Type: BLOOD SPECIMENOrdering Facility: [facility] Address: [address] [place] [address] Performed By: #### 5 0190-8, 3084-1, 2276-4 ####[facility]CLIA [id number] [address] [place] Vit B12 SerPl-mCncon 024 Cobalamin (Vitamin B12) [Mass/Vol] 433 pg/mL Normal 232-1245 [facility] Comment on above: Order Comment: Speci men Type: BLOOD SPECIMEN [facility] Address: [address] [place] [address] Performed By: #### 2 276-4, 2132-9, 95619-9, 2284-8 #### [facility] CLIA [id number] [address] [place] [address] [place] XR ANKLE 3V AP/LAT/OBL [...] Degenerative changes, calcaneal enthesophytes, and pes planus. Direct Marketing Representative: PSC[employer] Transcribe Date/Time: Sep 18 2024 12:20P Dictated by : GERTRUDIS MONCADA MD This examination was interpreted and the report reviewed and electronically signed by: GERTRUDIS MONCADA MD on Sep 18 2024 12:22PM EST [id number] Normal [facility] XR Ankle - right AP and Late ral and obliqueon 09-17-2024 Radiology Study [facility]ative[facility] Zinc SerPl-mCncon 09-17-2024 Zinc [Mass/Vol] 55 ug/dL Low 60-120 [facility] Comment on above: Order Comment: Fan meade Type: BLOOD SPECIMEN [facility] Address: [address] [place] [address] Result Comment: This test was developed, and its performance characteristics determined by the [facility] Department of Pathology and Laboratory Medicine. It has not been cleared or approved by the FDA. The [facility] Department of Pathology and Laboratory Medicine is regulated under CLIA as qualified to perform high-complexity testing. This test is used for clinical purposes. It should not be regarded as investigational or for research. Performed By: #### B CRPB1 #### [facility] CLIA [id number] [address] [place] [address] [place] #### ISMRNCNPB #### [facility] CLIA [id number] [address] [place] [address] [place] cCP IgG SerPl-aCncon 024 Cyclic citrullinated peptide IgG Qn <15 Normal <20 [facility] Comment on above: Order Comment: Fan meade Type: BLOOD SPECIMEN [facility] Address: [address] [place] [address] Performed By: #### 2 276-4, 2132-9, 65938-0, 2284-8 #### [facility] CLIA [id number] [address] [place] [address] [place] CNOVon 09-13-2024 CNOV Office Visit ([facility] ) YUSUF MEDINA ([id number]) 1935 F [birth year][address][birth year] Date Time Provider Department 09/13/24 10:00 AM MIGDALIA CRAMER [facility] During your visit today, we recorded [...] changes, you (more content not included)... Normal [facility] Arti 08-21-2024 CNPN Telephone ([facility]) YUSUF MEDINA ([id number]) 1935 F [place] Date Time Provider Department 08/21/24 MIGDALIA CRAMER [facility] During your visit today, we recorded [...] this patient by: CAREGIVER José Miguel Swanson [facility] Problem List As Of Date [...] 12/07/2017 Cervic (more content not included)... Normal [facility] ALBUMIN/CREATININE RATIO, UR INEon 08-14-2024 Albumin DL <= 20 mg/L (U) [Mass/Vol] 387.7 mg/L Normal [facility] Comment on above: Order Comment: Speci men Type: URINE SPECIMEN [facility] Address: [address] [place] [address] Performed By: #### U ACR, 2888-6 #### [facility] CLIA [id number] [address] [place] [address] [place] Albumin/Creatinine (U) [Mass ratio] 483 mg/g High <30 [facility] Comment on above: Order Comment: Speci men Type: URINE SPECIMEN [facility] Address: [address] [place] [address] Result Comment: Adul t Male and Female Nephrotic Criteria: <30 mg/g is considered normal to mildly increased 30-300 mg/g is considered moderately increased >300 mg/g is considered severely increased KDIGO. (2013). KDIGO 2012 Clinical Practice Guideline for the Evaluation and Management of Chronic Kidney Disease. Official Journal of the International Society of Nephrology, 3(1), 1-150. Performed By: #### U ACR, 2888-6 #### [facility] CLIA [id number] [address] [place] [address] [place] Creatinine (U) [Mass/Vol] 80.2 mg/dL Normal 20.0-300.0 [facility] Comment on above: Order Comment: Speci men Type: URINE SPECIMEN [facility] Address: [address] [place] [address] Performed By: #### U ACR, 2888-6 #### [facility] CLIA [id number] [address] [place] [address] [place] Bacteria Ur Culton [...] technique or straight catheterization for???urine???collecti on. Normal [facility] Comment on above: Performed By: #### 6 30-4 ####[facility]CLIA [id number] [place] [address] [place] Basic metabolic 2000 panelon 08-14-2024 Anion gap [Moles/Vol] 13 mmol/L Normal 8-15 [facility] Comment on above: Order Comment: Speci men Type: BLOOD SPECIMEN [facility] Address: [address] [place] [address] Performed By: #### 2 276-4, 2132-9, 59123-4, 4-8 #### [facility] CLIA [id number] [address] [place] [address] [place] Calcium [Mass/Vol] 9.9 mg/dL Normal 8.5-10.2 [facility] Comment on above: Order Comment: Speci men Type: BLOOD SPECIMEN [facility] Address: [address] [place] [address] Performed By: #### 2 276-4, 2132-9, 87717-1, 2284-8 #### [facility] CLIA [id number] [address] [place] [address] [place] Chloride [Moles/Vol] 96 mmol/L Low 98-107 [facility] Comment on above: Order Comment: Speci men Type: BLOOD SPECIMEN [facility] Address: [address] [place] [address] Performed By: #### 2 276-4, 2132-9, 07237-0, 2284-8 #### [facility] CLIA [id number] [address] [place] [address] [place] CO2 [Moles/Vol] 24 mmol/L Normal 22-30 [facility] Comment on above: Order Comment: Speci men Type: BLOOD SPECIMEN [facility] Address: [address] [place] [address] Performed By: #### 2 276-4, 2-9, 57022-5, 2284-8 #### [facility] CLIA [id number] [address] [place] [address] [place] Creatinine [Mass/Vol] 0.89 mg/dL Normal 0.58-0.96 [facility] Comment on above: Order Comment: Speci men Type: BLOOD SPECIMEN [facility] Address: [address] [place] [address] Performed By: #### 2 276-4, 2-9, 99923-1, 2284-8 #### [facility] CLIA [id number] [address] [place] [address] [place] Creatinine and Glomerular filtration rate.predicted panel (S/P/Bld) 62 mL/min/1.73m??? Normal >=60 [facility] Comment on above: Order Comment: Speci men Type: BLOOD SPECIMEN [facility] Address: [address] [place] [address] Result Comment: Hilda mated Glomerular Filtration Rate [...] GFR. Performed By: #### 2 276-4, 2131-9, 03282-3, 8 #### [facility] CLIA [id number] [address] [place] [address] [place] Glucose [Mass/Vol] 245 mg/dL High 74-99 [facility] Comment on above: Order Comment: Fan meade Type: BLOOD SPECIMEN [facility] Address: [address] [place] [address] Result Comment: The [place] Diabetes [employer] (ADA) provides guidance for cutoff [...] Standards of Medical Care in Diabetes 2016, [place] [employer]. Diabetes Care. 2016.39(Suppl 1). Performed By: #### 2 276-4, 9, 27848-6, 2284-06 #### [facility] CLIA [id number] [address] [place] [address] [place] Potassium [Moles/Vol] 4.9 mmol/L Normal 3.7-5.1 [facility] Comment on above: Order Comment: Fan meade Type: BLOOD SPECIMEN [facility] Address: [address] [place] [address] Performed By: #### 2 276-4, 9, 66246-2, 8 #### [facility] CLIA [id number] [address] [place] [address] [place] Sodium [Moles/Vol] 133 mmol/L Low 136-144 [facility] Comment on above: Order Comment: Speci men Type: BLOOD SPECIMEN [facility] Address: [address] [place] [address] Performed By: #### 2 276-4, 2131-9, 11735-1, 2283-8 #### [facility] CLIA [id number] [address] [place] [address] [place] Urea nitrogen [Mass/Vol] 29 mg/dL High 7-21 [facility] Comment on above: Order Comment: Speci men Type: BLOOD SPECIMEN [facility] Address: [address] [place] [address] Performed By: #### 2 276-4, 2131-9, 47051-6, 8 #### [facility] CLIA [id number] [address] [place] [address] [place] CBC W Ordered Manual Differe ntial panel (Bld)on 08-14-2024 Basophils (Bld) [#/Vol] 0.05 10*3/uL Normal <0.11 [facility] Comment on above: Order Comment: Speci men Type: BLOOD SPECIMEN [facility] Address: [address] [place] [address] Performed By: #### 2 276-4, 2131-9, 67209-4, 8 #### [facility] CLIA [id number] [address] [place] [address] [place] Basophils/100 WBC (Bld) 0.4 % Normal [facility] Comment on above: Order Comment: Speci men Type: BLOOD SPECIMEN [facility] Address: [address] [place] [address] Performed By: #### 2 276-4, 2131-9, 85572-7, 2283-8 #### [facility] CLIA [id number] [address] [place] [address] [place] Differential cell count method Nom (Bld) Auto Normal [facility] Comment on above: Order Comment: Speci men Type: BLOOD SPECIMEN [facility] Address: [address] [place] [address] Performed By: #### 2 276-4, 2131-9, 87291-8, 2283-8 #### [facility] CLIA [id number] [address] [place] [address] [place] Eosinophils (Bld) [#/Vol] 0.04 10*3/uL Normal <0.46 [facility] Comment on above: Order Comment: Speci men Type: BLOOD SPECIMEN [facility] Address: [address] [place] [address] Performed By: #### 2 276-4, 2131-9, 19610-3, 2283-8 #### [facility] CLIA [id number] [address] [place] [address] [place] Eosinophils/100 WBC (Bld) 0.3 % Normal [facility] Comment on above: Order Comment: Speci men Type: BLOOD SPECIMEN [facility]: [facility] Address: [address] [place] [address] Performed By: #### 2 276-4, 2131-9, 49237-9, 2283-8 #### [facility] CLIA [id number] [address] [place] [address] [place] Erythrocyte distribution width (RBC) [Ratio] 14.9 % Normal 11.5-15.0 [facility] Comment on above: Order Comment: Speci men Type: BLOOD SPECIMEN [facility]: [facility] Address: [address] [place] [address] Performed By: #### 2 276-4, 2131-9, 61520-5, 2283-8 #### [facility] CLIA [id number] [address] [place] [address] [place] Hematocrit (Bld) [Volume fraction] 35.2 % Low 36.0-46.0 [facility] Comment on above: Order Comment: Speci men Type: BLOOD SPECIMEN [facility]: [facility] Address: [address] [place] [address] Performed By: #### 2 276-4, 2131-9, 55081-3, 2283-8 #### [facility] CLIA [id number] [address] [place] [address] [place] Hemoglobin (Bld) [Mass/Vol] 11.2 g/dL Low 11.5-15.5 [facility] Comment on above: Order Comment: Speci men Type: BLOOD SPECIMEN [facility]: [facility] Address: [address] [place] [address] Performed By: #### 2 276-4, 2131-9, 58632-8, 8 #### [facility] CLIA [id number] [address] [place] [address] [place] Immature granulocytes (Bld) [#/Vol] 0.06 10*3/uL Normal <0.10 [facility] Comment on above: Order Comment: Speci men Type: BLOOD SPECIMEN Ordering [facility]: [facility] Address: [address] [place] [address] Performed By: #### 2 276-4, 2131-9, 88244-2, 8 #### [facility] CLIA [id number] [address] [place] [address] [place] Immature granulocytes/100 WBC (Bld) 0.5 % Normal [facility] Comment on above: Order Comment: Speci men Type: BLOOD SPECIMEN Ordering Facility: [facility] Address: [address] [place] [address] Performed By: #### 2 276-4, 2131-9, 86711-0, 2283-8 #### [facility] CLIA [id number] [address] [place] [address] [place] Lymphocytes (Bld) [#/Vol] 1.40 10*3/uL Normal 1.00-4.00 [facility] Comment on above: Order Comment: Speci men Type: BLOOD SPECIMEN Ordering Facility: [facility] Address: [address] [place] [address] Performed By: #### 2 276-4, 2131-9, 38053-2, 2283-8 #### [facility] CLIA [id number] [address] [place] [address] [place] Lymphocytes/100 WBC (Bld) 11.3 % Normal [facility] Comment on above: Order Comment: Speci men Type: BLOOD SPECIMEN Ordering Facility: [facility] Address: [address] [place] [address] Performed By: #### 2 276-4, 9, 99447-1, 2283-8 #### [facility] CLIA [id number] [address] [place] [address] [place] MCH (RBC) [Entitic mass] 28.4 pg Normal 26.0-34.0 [facility] Comment on above: Order Comment: Speci men Type: BLOOD SPECIMEN Ordering Facility: [facility] Address: [address] [place] [address] Performed By: #### 2 276-4, 2131-9, 65592-6, 2283-8 #### [facility] CLIA [id number] [address] [place] [address] [place] MCHC (RBC) [Mass/Vol] 31.8 g/dL Normal 30.5-36.0 [facility] Comment on above: Order Comment: Speci men Type: BLOOD SPECIMEN Ordering Facility: [facility] Address: [address] [place] [address] Performed By: #### 2 276-4, 2131-9, 69115-8, 2283-8 #### [facility] CLIA [id number] [address] [place], [place] [address] [place] MCV (RBC) [Entitic vol] 89.3 fL Normal 80.0-100.0 [facility] Comment on above: Order Comment: Speci men Type: BLOOD SPECIMEN Ordering Facility: [facility] Address: [address] [place] [address] Performed By: #### 2 276-4, 2131-9, 73316-7, 8 #### [facility] CLIA [id number] [address] [place] [address] [place] Monocytes (Bld) [#/Vol] 0.83 10*3/uL Normal <0.87 [facility] Comment on above: Order Comment: Speci men Type: BLOOD SPECIMEN Ordering Facility: [facility] Address: [address] [place] [address] Performed By: #### 2 276-4, 2131-9, 87450-4, 8 #### [facility] CLIA [id number] [address] [place] [address] [place] Monocytes/100 WBC (Bld) 6.7 % Normal C [facility] Comment on above: Order Comment: Speci men Type: BLOOD SPECIMEN Ordering Facility: [facility] Address: [address] [place] [address] Performed By: #### 2 276-4, 2131-9, 83679-6, 8 #### [facility] CLIA [id number] [address] [place], [place] [address] [place] Neutrophils (Bld) [#/Vol] 10.03 10*3/uL High 1.45-7.50 [facility] Comment on above: Order Comment: Speci men Type: BLOOD SPECIMEN Ordering Facility: [facility] Address: [address] [place] [address] Performed By: #### 2 276-4, 2131-9, 76051-0, 2284-06 #### [facility] CLIA [id number] [address] [place], [place] [address] [place] Neutrophils/100 WBC (Bld) 80.8 % Normal [facility] Comment on above: Order Comment: Speci men Type: BLOOD SPECIMEN Ordering Facility: [facility] Address: [address] [place] [address] Performed By: #### 2 276-4, 9, 30781-6, 2284-06 #### [facility] CLIA [id number] [address] [place], [place] [address] [place] Nucleated RBC (Bld) [#/Vol] 10*3/uL Normal <0.01 [facility] Comment on above: Order Comment: Speci men Type: BLOOD SPECIMEN Ordering Facility: [facility] Address: [address] [place] [address] Performed By: #### 2 276-4, 9, 79261-8, 2284-06 #### [facility] CLIA [id number] [address] [place] [address] [place] Nucleated RBC/100 WBC (Bld) [Ratio] 0.0 /[address] [facility] Comment on above: Order Comment: Speci men Type: BLOOD SPECIMEN Ordering Facility: [facility] Address: [address] [place] [address] Performed By: #### 2 276-4, 9, 65014-8, 2284-06 #### [facility] CLIA [id number] [address] [place] [address] [place] Platelet mean volume (Bld) [Entitic vol] 10.2 fL Normal 9.0-12.7 [facility] Comment on above: Order Comment: Speci men Type: BLOOD SPECIMEN Ordering Facility: [facility] Address: [address] [place] [address] Performed By: #### 2 276-4, 2131-9, 98549-2, 2283-8 #### [facility] CLIA [id number] [address] [place] [address] [place] Platelets (Bld) [#/Vol] 330 10*3/uL Normal 150-400 [facility] Comment on above: Order Comment: Speci men Type: BLOOD SPECIMEN Ordering Facility: [facility] Address: [address] [place] [address] Performed By: #### 2 276-4, 2-9, 64198-0, 2284-8 #### [facility] CLIA [id number] [address] [place] [address] [place] RBC (Bld) [#/Vol] 3.94 10*6/uL Normal 3.90-5.20 [facility] Comment on above: Order Comment: Speci men Type: BLOOD SPECIMEN Ordering Facility: [facility] Address: [address] [place] [address] Performed By: #### 2 276-4, 2132-9, 59849-2, 4-8 #### [facility] CLIA [id number] [address] [place] [address] [place] WBC (Bld) [#/Vol] 12.41 10*3/uL High 3.70-11.00 [facility] Comment on above: Order Comment: Speci men Type: BLOOD SPECIMEN Ordering Facility: [facility] Address: [address] [place] [address] Performed By: #### 2 276-4, 2132-9, 34185-2, 2284-8 #### [facility] CLIA [id number] [address] [place] [address] [place] CNOVon 08-14-2024 CNOV Office Visit ([facility] ) YUSUF MEDINA ([id number]) 1935 F [address]ERTO Date Time Provider Department 08/14/24 10:40 AM MIGDALIA CRAMER [facility] During your visit today, we recorded [...] COMBINE WITH DICLOFENAC GEL blood sugar diagnostic (SportsHedgeTOUCH ULTRA TEST) test strip Test blood sugar [...] no acute (more content not included)... Normal [facility] CRP SerPl-mCncon 08-14-2024 CRP [Mass/Vol] 7.8 mg/dL High <0.9 [facility] Comment on above: Order Comment: Speci men Type: BLOOD SPECIMEN Ordering Facility: [facility] Address: [address] [place] [address] Performed By: #### 2 276-4, 21319, 87019-2, 2283-8 #### [facility] CLIA [id number] [address] [place] [address] [place] ESR Westergren method (Bld) [Velocity]on 08-14-2024 ESR (Bld) [Velocity] 40 mm/h High 0-20 [facility] Comment on above: Order Comment: Fan men Type: BLOOD SPECIMEN Ordering Facility: [facility] Address: [address] [place] [address] Performed By: #### 2 276-4, 2131-9, 86525-5, 2283-8 #### [facility] CLIA [id number] [address] [place] [address] [place] HbA1c (Bld)on 08-14-2024 Average glucose Estimated from glycated hemoglobin (Bld) [Mass/Vol] 197 mg/dL Normal [facility] Comment on above: Order Comment: Katei men Type: BLOOD SPECIMEN Ordering Facility: [facility] Address: [address] [place] [address] Result Comment: eAG: (Estimated average glucose) is a calculated value from HgbA1c and is financial sales representative of the average blood glucose level in the last 2-3 month period. Performed By: #### 2 276-4, 2131-9, 67298-7, 8 #### [facility] CLIA [id number] [address] [place], [place] [address] [place] HbA1c (Bld) [Mass fraction] 8.5 % High 4.3-5.6 [facility] Comment on above: Order Comment: Speci men Type: BLOOD SPECIMEN Ordering Facility: [facility] Address: [address] [place] [address] Result Comment: Amer [place] Diabetes Association guidelines indicate that patients with HgbA1c in the range 5.7-6.4% are at increased risk for development of diabetes, and intervention by lifestyle modification may be beneficial. HgbA1c greater or equal to 6.5% is considered diagnostic of diabetes. Performed By: #### 2 276-4, 2131-9, 82340-7, 8 #### [facility] CLIA [id number] [address] [place], [place] [address] [place] PATHOLOGIST INTERPRETATION C BC/DIFFon 08-14-2024 Emt/Dispatcher review Mckay (Unsp spec) [Interp] No review performed. Normal [facility] Comment on above: Order Comment: Speci men Type: BLOOD SPECIMEN Ordering Facility: [facility] Address: [address] [place] [address] Performed By: #### 2 276-4, 2131-9, 62302-3, 8 #### [facility] CLIA [id number] [address] [place], [place] [address] [place] STAFF REVIEW, CBCDIF Normal [facility] Comment on above: Order Comment: Speci men Type: BLOOD SPECIMEN Ordering Facility: [facility] Address: [address] [place] [address] Result Comment: The Pathologist Interpretation on this sample was cancelled because the hematology analyzer did not flag any parameters as requiring manual review. If there is a specific clinical concern for which you would like a pathologist to review the blood smear, please call Lab Client Services within 28 days. Performed By: #### 2 276-4, 2132-9, 42503-3, 2284-8 #### [facility] CLIA [id number] [address] [place] [address] [place] PROTEIN ELECTROPHORESIS SERU M (P)on 08-14-2024 Albumin [Mass/Vol] 3.80 g/dL Normal 3.43-5.41 [facility] Comment on above: Order Comment: Speci men Type: BLOOD SPECIMENOrdering Facility: [facility] Address: [address] [place] [address] Performed By: #### L [id number] ####[facility] [id number] [place] [address] [place] Alpha 1 globulin Elph [Mass/Vol] 0.46 g/dL High 0.18-0.43 [facility] Comment on above: Order Comment: Speci men Type: BLOOD SPECIMENOrdering Facility: [facility] Address: [address] [place] [address] Performed By: #### L [id number] ####[facility] [id number] [place] [address] [place] Alpha 2 globulin Elph [Mass/Vol] 1.03 g/dL High 0.42-0.98 [facility] Comment on above: Order Comment: Speci men Type: BLOOD SPECIMENOrdering Facility: [facility] Address: [address] [place] [address] Performed By: #### L [id number] ####[facility] [id number] [place] [address] [place] Beta globulin Elph [Mass/Vol] 0.84 g/dL Normal 0.61-1.17 [facility] Comment on above: Order Comment: Speci men Type: BLOOD SPECIMENOrdering Facility: [facility] Address: [address] [place] [address] Performed By: #### L [id number] ####[facility] [id number] [place] [address] [place] Gamma globulin Elph [Mass/Vol] 0.58 g/dL Normal 0.53-1.51 [facility] Comment on above: Order Comment: Speci men Type: BLOOD SPECIMENOrdering Facility: [facility] Address: [address] [place] [address] Performed By: #### L [id number] ####[facility]IA [id number] [place] [address] [place] INTERPRETATION COMMENT FOR PROTEIN ELECTROPHORESIS The atypical region is relatively poorly defined and may represent an unusual presentation of polyclonal immunoglobulins, but cannot rule out the presence of a low level M protein. If clinically indicated, monoclonal protein analysis and serum free light chain analysis are suggested to evaluate further for monoclonal gammopathy. Normal [facility] Comment on above: Order Comment: Speci men Type: BLOOD SPECIMENOrdering Facility: [facility] Address: [address] [place] [address] Performed By: #### L [id number] ####[facility]IA [id number] [place] [address] [place] M-PROTEIN LOCATION Normal [facility] Comment on above: Order Comment: Speci men Type: BLOOD SPECIMENOrdering Facility: [facility] Address: [address] [place] [address] Result Comment: Not Applicable. Performed By: #### L [id number] ####[facility]IA [id number] [place] [address] [place] Protein Fractions [Interp] An atypical region of restricted mobility is identified on protein electrophoresis. Abnormal No definitive M protein is identified on protein electrophore sis. [facility] Comment on above: Order Comment: Speci men Type: BLOOD SPECIMENOrdering Facility: [facility] Address: [address] [place] [address] Performed By: #### L [id number] ####[facility]IA [id number] [place] [address] [place] Protein.monoclonal Elph [Mass/Vol] 0.00 g/dL Normal <=0.00 [facility] Comment on above: Order Comment: Speci men Type: BLOOD SPECIMENOrdering Facility: [facility] Address: [address] [place] [address] Performed By: #### L [id number] ####[facility]CLIA [id number] [place] [address] [place] SPE STAFF REVIEW Reviewed by Tanisha Sanchez MD [facility] Comment on above: Order Comment: Speci men Type: BLOOD SPECIMENOrdering Facility: [facility] Address: [address] [place] [address] Performed By: #### L [id number] ####[facility]CLIA [id number] [place] [address] [place] Prot SerPl-mCncon 08-14-2024 Protein [Mass/Vol] 6.7 g/dL Normal 6.3-8.0 [facility] Comment on above: Order Comment: Speci men Type: BLOOD SPECIMEN Ordering Facility: [facility] Address: [address] [place] [address] Performed By: #### 2 276-4, 2132-9, 65924-4, 2284-8 #### [facility] CLIA [id number] [address] [place] [address] [place] Prot Ur-mCncon 08-14-2024 Protein (U) [Mass/Vol] 78 mg/dL High 0-20 [facility] Comment on above: Order Comment: Speci men Type: URINE SPECIMEN Ordering Facility: [facility] Address: [address] [place] [address] Performed By: #### U ACR, 2888-6 #### [facility] CLIA [id number] [address] [place] [address] [place] TSH SerPl-aCncon 08-14-2024 TSH Qn 1.120 m[IU]/L Normal 0.270-4.200 [facility] Comment on above: Order Comment: Speci men Type: BLOOD SPECIMEN Ordering Facility: [facility] Address: [address] [place] [address] Performed By: #### 2 276-4, 9, 52718-8, 2283-8 #### [facility] CLIA [id number] [address] [place] [address] [place] URINALYSIS, DIPSTICK ONLYon 08-14-2024 Bilirubin Ql (U) Negative Normal Negative [facility] Comment on above: Order Comment: Speci men Type: BLOOD SPECIMEN Ordering Facility: [facility] Address: [address] [place] [address] Performed By: #### 2 276-4, 2131-9, 49449-8, 2283-8 #### [facility] CLIA [id number] [address] [place] [address] [place] Clarity (Unsp spec) Clear Normal Clear [facility] Comment on above: Order Comment: Speci men Type: BLOOD SPECIMEN Ordering Facility: [facility] Address: [address] [place] [address] Performed By: #### 2 276-4, 2131-9, 59443-1, 228-8 #### [facility] CLIA [id number] [address] [place] [address] [place] Color (U) Yellow Normal Yellow [facility] Comment on above: Order Comment: Speci men Type: BLOOD SPECIMEN Ordering Facility: [facility] Address: [address] [place] [address] Performed By: #### 2 276-4, 9, 24929-4, 8 #### [facility] CLIA [id number] [address] [place] [address] [place] Glucose Test strip (U) [Mass/Vol] 1+ Abnormal Negative [facility] Comment on above: Order Comment: Speci men Type: BLOOD SPECIMEN Ordering Facility: [facility] Address: [address] [place] [address] Performed By: #### 2 276-4, 9, 01576-7, 2284-06 #### [facility] CLIA [id number] [address] [place] [address] [place] Hemoglobin Ql (U) Negative Normal Negative [facility] Comment on above: Order Comment: Speci men Type: BLOOD SPECIMEN Ordering Facility: [facility] Address: [address] [place] [address] Performed By: #### 2 276-4, 9, 85648-7, 2284-06 #### [facility] CLIA [id number] [address] [place] [address] [place] Ketones Ql (U) Negative Normal Negative [facility] Comment on above: Order Comment: Speci men Type: BLOOD SPECIMEN Ordering Facility: [facility] Address: [address] [place] [address] Performed By: #### 2 276-4, 9, 33574-9, 2284-06 #### [facility] CLIA [id number] [address] [place] [address] [place] Leukocyte esterase Test strip Ql (U) Negative Normal Negative [facility] Comment on above: Order Comment: Speci men Type: BLOOD SPECIMEN Ordering Facility: [facility] Address: [address] [place] [address] Performed By: #### 2 276-4, 9, 45922-7, 8 #### [facility] CLIA [id number] [address] [place] [address] [place] Nitrite Ql (U) Negative Normal Negative [facility] Comment on above: Order Comment: Speci men Type: BLOOD SPECIMEN Ordering Facility: [facility] Address: [address] [place] [address] Performed By: #### 2 276-4, 2131-9, 32062-5, 2283-8 #### [facility] CLIA [id number] [address] [place] [address] [place] pH (U) 6.5 [pH] Normal <8.5 [facility] Comment on above: Order Comment: Speci men Type: BLOOD SPECIMEN Ordering Facility: [facility] Address: [address] [place] [address] Performed By: #### 2 276-4, 2131-9, 64274-8, 2283-8 #### [facility] CLIA [id number] [address] [place] [address] [place] Protein (U) [Mass/Vol] 2+ Abnormal Negative [facility] Comment on above: Order Comment: Speci men Type: BLOOD SPECIMEN Ordering Facility: [facility] Address: [address] [place] [address] Performed By: #### 2 276-4, 2131-9, 54101-6, 2283-8 #### [facility] CLIA [id number] [address] [place] [address] [place] Specific gravity (U) [Rel density] 1.020 Normal 1.005-1.030 [facility] Comment on above: Order Comment: Speci men Type: BLOOD SPECIMEN Ordering Facility: [facility] Address: [address] [place] [address] Performed By: #### 2 276-4, 2131-9, 77850-1, 2283-8 #### [facility] CLIA [id number] [address] [place] [address] [place] Urobilinogen Ql (U) 1.0 EU/dL Normal 0.2-1.0 EU/dL [facility] Comment on above: Order Comment: Speci men Type: BLOOD SPECIMEN Ordering Facility: [facility] Address: [address] [place] [address] Performed By: #### 2 276-4, 2132-9, 16286-3, 2284-8 #### [facility] CLIA [id number] [address] [place] [address] [place] URINE PROTEIN ELECTROPHORESI S RANDOM (P)on 08-14-2024 Albumin Elph (U) [Mass fraction] 69.11 % Normal [facility] Comment on above: Order Comment: Speci men Type: URINE SPECIMENOrdering Facility: [facility] Address: [address] [place] [address] Performed By: #### L [id number] ####[facility] [id number] [address] [place] Alpha 1 globulin Elph (U) [Mass fraction] 7.87 % Normal [facility] Comment on above: Order Comment: Speci men Type: URINE SPECIMENOrdering Facility: [facility] Address: [address] [place] [address] Performed By: #### L [id number] ####[facility]IA [id number] [place] [address] [place] Alpha 2 globulin Elph (U) [Mass fraction] 6.40 % Normal [facility] Comment on above: Order Comment: Speci men Type: URINE SPECIMENOrdering Facility: [facility] Address: [address] [place] [address] Performed By: #### L [id number] ####[facility]IA [id number] [place] [address] [place] Beta globulin Elph (U) [Mass fraction] 11.20 % Normal [facility] Comment on above: Order Comment: Speci men Type: URINE SPECIMENOrdering Facility: [facility] Address: [address] [place] [address] Performed By: #### L [id number] ####[facility] [id number] [address] STATES [facility] Gamma globulin Elph (U) [Mass fraction] 5.42 % Normal [facility] Comment on above: Order Comment: Speci men Type: URINE SPECIMENOrdering Facility: [facility] Address: [address] [place] [address] Performed By: #### L [id number] ####[facility] [id number] [address] Protein Fractions Elph Mckay (U) [Interp] No definitive M protein is identified on protein electrophoresis. Normal No definitive M protein is identified on protein electrophore sis. [facility] Comment on above: Order Comment: Speci men Type: URINE SPECIMENOrdering Facility: [facility] Address: [address] [place] [address] Performed By: #### L [id number] ####[facility] [id number] [address] STAFF REVIEW (URINE ELECTRO) Reviewed by Brianne Mosley M.D., Ph.D Normal [facility] Comment on above: Order Comment: Speci men Type: URINE SPECIMENOrdering Facility: [facility] Address: [address] [place] [address] Performed By: #### L [id number] ####[facility] [id number] [address] [place] ALLIED HEALTHon 08-13-2024 ALLIED HEALTH HNO ID: [id number] Author: TYESHA TERRELL RT(R) Service: Radiology Author [...] PATIENT PRESENTS WITH AN IMPLANTABLE OR ATTACHED VACUUM CLEANER ASSEMBLER: No RADIOLOGY DEPARTMENT: General X-ray: Exam(s) Completed: Chest X-Ray PERIPHERAL IV DATA: Not applicable SIGNED BY: Tyesha Terrell RT(R) August 13, 2024 3:[address] [facility] CBC W Auto Differential pane l (Bld)on 08-13-2024 Basophils (Bld) [#/Vol] 0.03 10*3/uL Normal <0.11 [facility] Comment on above: Order Comment: Speci men Type: URINE SPECIMEN Ordering Facility: [facility] Address: [address] [place] [address] Performed By: #### U ACR, 2888-6 #### [facility] CLIA [id number] [address] [place] [address] [place] Basophils/100 WBC (Bld) 0.2 % Normal C [facility] Comment on above: Order Comment: Speci men Type: URINE SPECIMEN Ordering Facility: [facility] Address: [address] [place] [address] Performed By: #### U ACR, 2888-6 #### [facility] CLIA [id number] [address] [place] [address] [place] Differential cell count method Nom (Bld) Auto Normal [facility] Comment on above: Order Comment: Speci men Type: URINE SPECIMEN Ordering Facility: [facility] Address: [address] [place] [address] Performed By: #### U ACR, 2888-04 #### [facility] CLIA [id number] [address] [place] [address] [place] Eosinophils (Bld) [#/Vol] 10*3/uL Normal <0.46 [facility] Comment on above: Order Comment: Speci men Type: URINE SPECIMEN Ordering Facility: [facility] Address: [address] [place] [address] Performed By: #### U ACR, 6 #### [facility] CLIA [id number] [address] [place] [address] [place] Eosinophils/100 WBC (Bld) 0.1 % Normal [facility] Comment on above: Order Comment: Speci men Type: URINE SPECIMEN Ordering Facility: [facility] Address: [address] [place] [address] Performed By: #### U ACR, 2888-04 #### [facility] CLIA [id number] [address] [place] [address] [place] Erythrocyte distribution width (RBC) [Ratio] 14.6 % Normal 11.5-15.0 [facility] Comment on above: Order Comment: Speci men Type: URINE SPECIMEN Ordering Facility: [facility] Address: [address] [place] [address] Performed By: #### U ACR, 2888-04 #### [facility] CLIA [id number] [address] [place] [address] [place] Hematocrit (Bld) [Volume fraction] 33.5 % Low 36.0-46.0 [facility] Comment on above: Order Comment: Speci men Type: URINE SPECIMEN Ordering Facility: [facility] Address: [address] [place] [address] Performed By: #### U ACR, 2888-04 #### [facility] CLIA [id number] [address] [place] [address] [place] Hemoglobin (Bld) [Mass/Vol] 10.9 g/dL Low 11.5-15.5 [facility] Comment on above: Order Comment: Speci men Type: URINE SPECIMEN Ordering Facility: [facility] Address: [address] [place] [address] Performed By: #### U ACR, 2888-6 #### [facility] CLIA [id number] [address] [place] [address] [place] Immature granulocytes (Bld) [#/Vol] 0.09 10*3/uL Normal <0.10 [facility] Comment on above: Order Comment: Speci men Type: URINE SPECIMEN Ordering Facility: [facility] Address: [address] [place] [address] Performed By: #### U ACR, 2888-6 #### [facility] CLIA [id number] [address] [place] [address] [place] Immature granulocytes/100 WBC (Bld) 0.5 % Normal [facility] Comment on above: Order Comment: Speci men Type: URINE SPECIMEN Ordering Facility: [facility] Address: [address] [place] [address] Performed By: #### U ACR, 2888-6 #### [facility] CLIA [id number] [address] [place] [address] [place] Lymphocytes (Bld) [#/Vol] 0.91 10*3/uL Low 1.00-4.00 [facility] Comment on above: Order Comment: Speci men Type: URINE SPECIMEN Ordering Facility: [facility] Address: [address] [place] [address] Performed By: #### U ACR, 2888-6 #### [facility] CLIA [id number] [address] [place] [address] [place] Lymphocytes/100 WBC (Bld) 5.3 % Normal [facility] Comment on above: Order Comment: Speci men Type: URINE SPECIMEN Ordering Facility: [facility] Address: [address] [place] [address] Performed By: #### U ACR, 2886 #### [facility] CLIA [id number] [address] [place] [address] [place] MCH (RBC) [Entitic mass] 28.6 pg Normal 26.0-34.0 [facility] Comment on above: Order Comment: Speci men Type: URINE SPECIMEN Ordering Facility: [facility] Address: [address] [place] [address] Performed By: #### U ACR, 2888-04 #### [facility] CLIA [id number] [address] [place] [address] [place] MCHC (RBC) [Mass/Vol] 32.5 g/dL Normal 30.5-36.0 [facility] Comment on above: Order Comment: Speci men Type: URINE SPECIMEN Ordering Facility: [facility] Address: [address] [place] [address] Performed By: #### U ACR, 2888-04 #### [facility] CLIA [id number] [address] [place] [address] [place] MCV (RBC) [Entitic vol] 87.9 fL Normal 80.0-100.0 [facility] Comment on above: Order Comment: Speci men Type: URINE SPECIMEN Ordering Facility: [facility] Address: [address] [place] [address] Performed By: #### U ACR, 2888-04 #### [facility] CLIA [id number] [address] [place] [address] [place] Monocytes (Bld) [#/Vol] 0.91 10*3/uL High <0.87 [facility] Comment on above: Order Comment: Speci men Type: URINE SPECIMEN Ordering Facility: [facility] Address: [address] [place] [address] Performed By: #### U ACR, 2887- #### [facility] CLIA [id number] [address] [place] [address] [place] Monocytes/100 WBC (Bld) 5.3 % Normal [facility] Comment on above: Order Comment: Speci men Type: URINE SPECIMEN Ordering Facility: [facility] Address: [address] [place] [address] Performed By: #### U ACR, 2888-6 #### [facility] CLIA [id number] [address] [place] [address] [place] Neutrophils (Bld) [#/Vol] 15.20 10*3/uL High 1.45-7.50 [facility] Comment on above: Order Comment: Speci men Type: URINE SPECIMEN Ordering Facility: [facility] Address: [address] [place] [address] Performed By: #### U ACR, 2888-6 #### [facility] CLIA [id number] [address] [place] [address] [place] Neutrophils/100 WBC (Bld) 88.6 % Normal [facility] Comment on above: Order Comment: Speci men Type: URINE SPECIMEN Ordering Facility: [facility] Address: [address] [place] [address] Performed By: #### U ACR, 2888-6 #### [facility] CLIA [id number] [address] [place] [address] [place] Nucleated RBC (Bld) [#/Vol] 10*3/uL Normal <0.01 [facility] Comment on above: Order Comment: Speci men Type: URINE SPECIMEN Ordering Facility: [facility] Address: [address] [place] [address] Performed By: #### U ACR, 2888-6 #### [facility] CLIA [id number] [address] [place] [address] [place] Nucleated RBC/100 WBC (Bld) [Ratio] 0.0 /[address] [facility] Comment on above: Order Comment: Speci men Type: URINE SPECIMEN Ordering Facility: [facility] Address: [address] [place] [address] Performed By: #### U ACR, 2888-6 #### [facility] CLIA [id number] [address] [place] [address] [place] Platelet mean volume (Bld) [Entitic vol] 9.0 fL Normal 9.0-12.7 [facility] Comment on above: Order Comment: Speci men Type: URINE SPECIMEN Ordering Facility: [facility] Address: [address] [place] [address] Performed By: #### U ACR, 2888-6 #### [facility] CLIA [id number] [address] [place] [address] [place] Platelets (Bld) [#/Vol] 321 10*3/uL Normal 150-400 [facility] Comment on above: Order Comment: Speci men Type: URINE SPECIMEN Ordering Facility: [facility] Address: [address] [place] [address] Performed By: #### U ACR, 2888-6 #### [facility] CLIA [id number] [address] [place] [address] [place] RBC (Bld) [#/Vol] 3.81 10*6/uL Low 3.90-5.20 [facility] Comment on above: Order Comment: Speci men Type: URINE SPECIMEN Ordering Facility: [facility] Address: [address] [place] [address] Performed By: #### U ACR, 2888-6 #### [facility] CLIA [id number] [address] [place] [address] [place] WBC (Bld) [#/Vol] 17.15 10*3/uL High 3.70-11.00 [facility] Comment on above: Order Comment: Speci men Type: URINE SPECIMEN Ordering Facility: [facility] Address: [address] [place] [address] Performed By: #### U ACR, 2888-6 #### [facility] CLIA [id number] [address] [place] [address] [place] CK SerPl-cCncon 08-13-2024 CK [Catalytic activity/Vol] 56 U/L Normal 42-196 [facility] Comment on above: Order Comment: Speci men Type: BLOOD SPECIMEN Ordering Facility: [facility] Address: [address] [place] [address] Performed By: #### 2 276-4, 2131-9, 88558-1, 2283-8 #### [facility] CLIA [id number] [address] [place] [address] [place] Comprehensive metabolic 2000 panelon 08-13-2024 Albumin [Mass/Vol] 4.0 g/dL Normal 3.9-4.9 [facility] Comment on above: Order Comment: Speci men Type: BLOOD SPECIMEN Ordering Facility: [facility] Address: [address] [place] [address] Performed By: #### 2 276-4, 2131-9, 23771-5, 2283-8 #### [facility] CLIA [id number] [address] [place] [address] [place] ALP [Catalytic activity/Vol] 99 U/L Normal 34-123 [facility] Comment on above: Order Comment: Speci men Type: BLOOD SPECIMEN Ordering Facility: [facility] Address: [address] [place] [address] Performed By: #### 2 276-4, 2131-9, 09339-1, 2283-8 #### [facility] CLIA [id number] [address] [place] [address] [place] ALT [Catalytic activity/Vol] 15 U/L Normal 7-38 [facility] Comment on above: Order Comment: Speci men Type: BLOOD SPECIMEN Ordering Facility: [facility] Address: [address] [place] [address] Performed By: #### 2 276-4, 2131-9, 59773-3, 2284-8 #### [facility] CLIA [id number] [address] [place] [address] [place] Anion gap [Moles/Vol] 14 mmol/L Normal 8-15 [facility] Comment on above: Order Comment: Speci men Type: BLOOD SPECIMEN Ordering Facility: [facility] Address: [address] [place] [address] Performed By: #### 2 276-4, 2131-9, 63319-4, 228-8 #### [facility] CLIA [id number] [address] [place] [address] [place] AST [Catalytic activity/Vol] 18 U/L Normal 13-35 [facility] Comment on above: Order Comment: Speci men Type: BLOOD SPECIMEN Ordering Facility: [facility] Address: [address] [place] [address] Performed By: #### 2 276-4, 2131-9, 89917-5, 2284-8 #### [facility] CLIA [id number] [address] [place] [address] [place] Bilirubin [Mass/Vol] 0.2 mg/dL Normal 0.2-1.3 [facility] Comment on above: Order Comment: Speci men Type: BLOOD SPECIMEN Ordering Facility: [facility] Address: [address] [place] [address] Performed By: #### 2 276-4, 2131-9, 16617-1, 228-8 #### [facility] CLIA [id number] [address] [place] [address] [place] Calcium [Mass/Vol] 9.2 mg/dL Normal 8.5-10.2 [facility] Comment on above: Order Comment: Speci men Type: BLOOD SPECIMEN Ordering Facility: [facility] Address: [address] [place] [address] Performed By: #### 2 276-4, 2131-9, 48170-5, 2284-8 #### [facility] CLIA [id number] [address] [place] [address] [place] Chloride [Moles/Vol] 96 mmol/L Low 98-107 [facility] Comment on above: Order Comment: Speci men Type: BLOOD SPECIMEN Ordering Facility: [facility] Address: [address] [place] [address] Performed By: #### 2 276-4, 2131-9, 16712-8, 228-8 #### [facility] CLIA [id number] [address] [place] [address] [place] CO2 [Moles/Vol] 24 mmol/L Normal 22-30 [facility] Comment on above: Order Comment: Speci men Type: BLOOD SPECIMEN Ordering Facility: [facility] Address: [address] [place] [address] Performed By: #### 2 276-4, 2131-9, 27828-2, 4-8 #### [facility] CLIA [id number] [address] [place] [address] [place] Creatinine [Mass/Vol] 0.87 mg/dL Normal 0.58-0.96 [facility] Comment on above: Order Comment: Speci men Type: BLOOD SPECIMEN Ordering Facility: [facility] Address: [address] [place] [address] Performed By: #### 2 276-4, 2131-9, 58576-7, 228-8 #### [facility] CLIA [id number] [address] [place] [address] [place] Creatinine and Glomerular filtration rate.predicted panel (S/P/Bld) 64 mL/min/1.73m??? Normal >=60 [facility] Comment on above: Order Comment: Speci men Type: BLOOD SPECIMEN Ordering Facility: [facility] Address: [address] [place], [place] [address] Result Comment: Hilda mated Glomerular Filtration Rate [...] GFR. Performed By: #### 2 276-4, 2131-9, 92992-7, 2284-06 #### [facility] CLIA [id number] [address] [place] [address] [place] Glucose [Mass/Vol] 212 mg/dL High 74-99 [facility] Comment on above: Order Comment: Fan meade Type: BLOOD SPECIMEN Ordering Facility: [facility] Address: [address] [place] [address] Result Comment: The [place] [employer] (ADA) provides guidance for cutoff [...] Standards of Medical Care in Diabetes 2016, [place] [employer]. Diabetes Care. 2016.39(Suppl 1). Performed By: #### 2 276-4, 2131-9, 93766-2, 8 #### [facility] CLIA [id number] [address] [place] [address] [place] Potassium [Moles/Vol] 4.6 mmol/L Normal 3.7-5.1 [facility] Comment on above: Order Comment: Fan meade Type: BLOOD SPECIMEN Ordering Facility: [facility] Address: [address] [place], [place] [address] Performed By: #### 2 276-4, 2131-9, 85600-3, 228-8 #### [facility] CLIA [id number] [address] [place] [address] [place] Protein [Mass/Vol] 6.5 g/dL Normal 6.3-8.0 [facility] Comment on above: Order Comment: Speci men Type: BLOOD SPECIMEN Ordering Facility: [facility] Address: [address] [place] [address] Performed By: #### 2 276-4, 2131-9, 18999-9, 2283-8 #### [facility] CLIA [id number] [address] [place] [address] [place] Sodium [Moles/Vol] 134 mmol/L Low 136-144 [facility] Comment on above: Order Comment: Speci men Type: BLOOD SPECIMEN Ordering Facility: [facility] Address: [address] [place] [address] Performed By: #### 2 276-4, 2131-9, 81694-7, 2283-8 #### [facility] CLIA [id number] [address] [place] [address] [place] Urea nitrogen [Mass/Vol] 29 mg/dL High 7-21 [facility] Comment on above: Order Comment: Speci men Type: BLOOD SPECIMEN Ordering Facility: [facility] Address: [address] [place] [address] Performed By: #### 2 276-4, 2131-9, 64423-2, 2283-8 #### [facility] CLIA [id number] [address] [place] [address] [place] ECG COMPLETEon 08-13-2024 ECG COMPLETE Ventricular Rate : 9 7 BPM Atrial Rate : 97 BPM P-R Interval : 174 ms QRS Duration : 78 ms Q-T Interval : 328 ms QTC Calculation(Bazett) : 416 ms Calculated P Roosevelt : 64 degrees Calculated R Roosevelt : 29 degrees Calculated T Roosevelt : 68 degrees SINUS RHYTHM WITH PREMATURE ATRIAL COMPLEXES CANNOT EXCLUDE ANTERIOR MYOCARDIAL INFARCTION , AGE UNDETERMINED ABNORMAL ECG 1402 08/13/2024 Confirmed by DO ROMO ALAN ([id number]), marketing editor CAROLINA MERRITT ([id number]) on 08/14/2024 8:29:13 AM NAME : YUSUF MEDINA PID : [id number] : 1935 Gender : Female Race : ORD : [id number] Procedure Date : Aug 13 2024 14:04:37 Edit Date : Aug 14 2024 08:29:17 Diagnosis: SINUS RHYTHM WITH PREMATURE ATRIAL COMPLEXES CANNOT EXCLUDE ANTERIOR MYOCARDIAL INFARCTION , AGE UNDETERMINED ABNORMAL ECG 1402 08/13/2024 Confirmed by DO ROMO ALAN ([id number]), marketing editor CAROLINA MERRITT ([id number]) on 08/14/2024 8:29:13 AM Test Reason : Chest Pain Location : 215 : BRUED [id number] Overread By : DO ROMO ALAN Edited By : CAROLINA MERRITT Referred By : , Acquired by : Ally MURGUIA [facility] ED NOTEon 08-13-2024 ED NOTE HNO ID: [id number] Author: ELIF SAM RN Service: Nursing Author Type: Registered Nurse Type: ED Notes Filed: 08/13/2024 17:42 Note Text: Pt given discharge instructions. Verbalized understanding. Pt taken to daughters car by wheelchair. Normal [facility] ED NOTE HNO ID: [id number] Author: KONSTANTIN FLORES RN Service: Nursing Author [...] staff of any changes in condition. Normal [facility] ED PROV NOTEon 08-13-2024 ED PROV NOTE HNO ID: [id number] Author: MARIUSZ ROMO DO Service: Emergency Medicine [...] better. Her daughter is translating. They speak Monegasque. 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 Patient does not have headache. No posterior head or neck pain. No chest pain. No thoracic lumbar back pain. No abdominal pain. No dysuria. No urinary frequency. No diarrhea. No constipation. She really is without complaints. She believes she has been eating fine. Her daughter adds that sometimes when they put her pill party planner medications together she takes both a.m. [...] - REMV CATARACT EXTRACAP,INSERT LENS Bilateral 2020 [facility] FAMILY HISTORY Problem Relation Age of Onset [...] / D (more content not included)... Normal [facility] HIGH SENSITIVITY TROPONIN T (INITIAL)on 08-13-2024 Troponin T.cardiac High sensitivity method [Mass/Vol] 30 ng/L High <12 [facility] Comment on above: Order Comment: Fan meade Type: BLOOD SPECIMEN Ordering Facility: [facility] Address: [address] [place] [address] Performed By: #### 2 276-4, 2-9, 12599-7, 2284-8 #### [facility] CLIA [id number] [address] [place] [address] [place] HIGH SENSITIVITY TROPONIN T (SECOND)on 08-13-2024 Troponin T.cardiac High sensitivity method [Mass/Vol] 29 ng/L High <12 [facility] Comment on above: Order Comment: Fan meade Type: BLOOD SPECIMEN Ordering Facility: [facility] Address: [address] [place] [address] Performed By: #### 2 276-4, 2131-9, 27779-3, 2283-8 #### [facility] CLIA [id number] [address] [place] [address] [place] PT panel Coag (PPP)on 2023 INR Coag (PPP) [Relative time] 1.0 {INR} Normal 0.9-1.3 [facility] Comment on above: Order Comment: Fan meade Type: BLOOD SPECIMENOrdering Facility: [facility] Address: [address] [place] [address] Result Comment: Kendra min K Antagonist (VKA) Therapeutic Range: INR 2 to 3 (Target INR of 2.5) Note: For patients treated with VKA drugs, such as warfarin, the [place] [employer] 2012 Guideline recommends [...] Chest 2012, 141:7S-47S John RA, et al. [facility] 2017, 70: 252-289 Performed By: #### 3 4528-0 ####[facility] [id number] [place] [address] [place] PT Coag (PPP) [Time] 10.6 s Normal 9.7-13.0 [facility] Comment on above: Order Comment: Speci men Type: BLOOD SPECIMENOrdering Facility: [facility] Address: [address] [place] [address] Performed By: #### 3 4528-0 ####[facility]IA [id number] [place] [address] [place] Urinalysis complete panel (U )on 08-13-2024 Bilirubin Ql (U) Negative Normal Negative [facility] Comment on above: Order Comment: Speci men Type: BLOOD SPECIMEN Ordering Facility: [facility] Address: [address] [place] [address] Performed By: #### 2 276-4, 9, 94880-0, 8 #### [facility] CLIA [id number] [address] [place] [address] [id number] [place] [address] [place] Clarity (Unsp spec) Clear Normal Clear [facility] Comment on above: Order Comment: Speci men Type: BLOOD SPECIMEN Ordering Facility: [facility] Address: [address] [place] [address] Performed By: #### 2 276-4, 21319, 67184-9, 8 #### [facility] CLIA [id number] [address] [place] [address] [place] Color (U) Yellow Normal yellow [facility] Comment on above: Order Comment: Speci men Type: BLOOD SPECIMEN Ordering Facility: [facility] Address: [address] [place] [address] Performed By: #### 2 276-4, 2131-9, 80969-5, 2283-8 #### [facility] CLIA [id number] [address] [place] [address] [place] Epithelial cells LM.HPF (Urine sed) [#/Area] Few Normal [facility] Comment on above: Order Comment: Speci men Type: BLOOD SPECIMEN Ordering Facility: [facility] Address: [address] [place] [address] Result Comment: Few Performed By: #### 2 276-4, 9, 44146-3, 2283-8 #### [facility] CLIA [id number] [address] [place] [address] [place] Glucose Test strip (U) [Mass/Vol] Negative Normal Trace, Negative [facility] Comment on above: Order Comment: Speci men Type: BLOOD SPECIMEN Ordering Facility: [facility] Address: [address] [place] [address] Performed By: #### 2 276-4, 9, 27160-1, 2283-8 #### [facility] CLIA [id number] [address] [place] [address] [place] Hemoglobin Ql (U) Trace Normal Negative, Trace [facility] Comment on above: Order Comment: Speci men Type: BLOOD SPECIMEN Ordering Facility: [facility] Address: [address] [place] [address] Performed By: #### 2 276-4, 2131-9, 39688-3, 2283-8 #### [facility] CLIA [id number] [address] [place] [address] [place] Ketones Ql (U) Negative Normal Negative, Trace [facility] Comment on above: Order Comment: Speci men Type: BLOOD SPECIMEN Ordering Facility: [facility] Address: [address] [place] [address] Performed By: #### 2 276-4, 2131-9, 58984-8, 2283-8 #### [facility] CLIA [id number] [address] [place] [address] [place] Leukocyte esterase Test strip Ql (U) Negative Normal Negative, 25 Vani/uL [facility] Comment on above: Order Comment: Speci men Type: BLOOD SPECIMEN Ordering Facility: [facility] Address: [address] [place] [address] Performed By: #### 2 276-4, 9, 16836-5, 8 #### [facility] CLIA [id number] [address] [place] [address] [place] Nitrite Ql (U) Negative Normal Negative [facility] Comment on above: Order Comment: Speci men Type: BLOOD SPECIMEN Ordering Facility: [facility] Address: [address] [place] [address] Performed By: #### 2 276-4, 9, 98249-6, 8 #### [facility] CLIA [id number] [address] [place] [address] [place] pH (U) 6.0 [pH] Normal 5.0-8.0 [facility] Comment on above: Order Comment: Speci men Type: BLOOD SPECIMEN Ordering Facility: [facility] Address: [address] [place] [address] Performed By: #### 2 276-4, 9, 73782-8, 8 #### [facility] CLIA [id number] [address] [place] [address] [place] Protein (U) [Mass/Vol] 1+ Abnormal Trace , Negative [facility] Comment on above: Order Comment: Speci men Type: BLOOD SPECIMEN Ordering Facility: [facility] Address: [address] [place] [address] Performed By: #### 2 276-4, 9, 39460-8, 8 #### [facility] CLIA [id number] [address] [place] [address] [place] RBC LM.HPF (Urine sed) [#/Area] 3-5 /HPF Abnormal 0-3 /HPF [facility] Comment on above: Order Comment: Speci men Type: BLOOD SPECIMEN Ordering Facility: [facility] Address: [address] [place] [address] Performed By: #### 2 276-4, 9, 92258-4, 2284-06 #### [facility] CLIA [id number] [address] [place] [address] [place] Specific gravity (U) [Rel density] 1.021 Normal 1.005-1.030 [facility] Comment on above: Order Comment: Speci men Type: BLOOD SPECIMEN Ordering Facility: [facility] Address: [address] [place] [address] Performed By: #### 2 276-4, 9, 74645-8, 2284-06 #### [facility] CLIA [id number] [address] [place] [address] [place] Urobilinogen Ql (U) Normal Normal Normal [facility] Comment on above: Order Comment: Speci men Type: BLOOD SPECIMEN Ordering Facility: [facility] Address: [address] [place] [address] Performed By: #### 2 276-4, 9, 26689-7, 2284-06 #### [facility] CLIA [id number] [address] [place] [address] [place] WBC LM.HPF (Urine sed) [#/Area] 0-5 /HPF Normal 0-5 /HPF [facility] Comment on above: Order Comment: Speci men Type: BLOOD SPECIMEN Ordering Facility: [facility] Address: [address] [place] [address] Performed By: #### 2 276-4, 2132-9, 80142-1, 2284-8 #### [facility] CLIA [id number] [address] [place] [address] [place] [address] [place] XR CHEST 1V [...] of bilateral shoulders IMPRESSION: Bilateral basilar atelectasis Direct Marketing Representative: PHU Transcribe Date/Time: Aug 13 2024 4:03P Dictated by : GILLIAN ELLIOTT MD This examination was interpreted and the report reviewed and electronically signed by: GILLIAN ELLIOTT MD on Aug 13 2024 4:04PM EST [id number] Normal [facility] CNOVon 07-12-2024 CNOV Office Visit ([facility] ) YUSUF MEDINA ([id number]) 1935 F ALBERTO Date Time Provider Department 07/12/24 9:40 AM MIGDALIA CRAMER [facility] During your visit today, we recorded [...] [D50.9] Order(s):BASIC METABOLIC PANEL [SQBMP] Order #: [id number] FUTURE HEMOGLOBIN A1C [[id number]] Order #: [id number] FUTURE ALBUMIN/CREATININE RATIO, URINE [SQUACR] Order #: [id number] FUTURE COMPLETE BLOOD COUNT [SQCBC] Order #: [id number] FUTURE THYROID STIMULATING HORMONE [SQTSH] Order #: [id number] FUTURE Prescriptions as of 07/12/2024 - pioglitazone [...] mouth once daily. - blood sugar diagnostic (WellUCH ULTRA TEST) test strip Test blood sugar once daily - diclofenac (VOLTARE (more content not included)... Normal [facility] Basic metabolic 2000 panelon 07-11-2024 Anion gap [Moles/Vol] 14 mmol/L Normal 8-15 [facility] Comment on above: Order Comment: Speci men Type: BLOOD SPECIMENOrdering Facility: [facility] Address: [address] [place] [address] Performed By: #### 2 4321-2 ####[facility] LABCLIA [id number] [place] [address] [place] Calcium [Mass/Vol] 9.9 mg/dL Normal 8.5-10.2 [facility] Comment on above: Order Comment: Speci men Type: BLOOD SPECIMENOrdering Facility: [facility] Address: [address] [place] [address] Performed By: #### 2 4321-2 ####[facility] LABCLIA [id number] [place] [id number] [place] Chloride [Moles/Vol] 101 mmol/L Normal 98-107 [facility] Comment on above: Order Comment: Speci men Type: BLOOD SPECIMENOrdering Facility: [facility] Address: [address] [place] [address] Performed By: #### 2 4321-2 ####[facility] LABCLIA [id number] [place] [address] [place] CO2 [Moles/Vol] 20 mmol/L Low 22-30 [facility] Comment on above: Order Comment: Speci men Type: BLOOD SPECIMENOrdering Facility: [facility] Address: [address] [place] [address] Performed By: #### 2 4321-2 ####[facility] LABCLIA [id number] [place] [address] [place] Creatinine [Mass/Vol] 0.93 mg/dL Normal 0.58-0.96 [facility] Comment on above: Order Comment: Speci men Type: BLOOD SPECIMENOrdering Facility: [facility] Address: [address] [place] [address] Performed By: #### 2 4321-2 ####[facility] LABIA [id number] [address] Creatinine and Glomerular filtration rate.predicted panel (S/P/Bld) 59 mL/min/1.73m??? Low >=60 [facility] Comment on above: Order Comment: Speci men Type: BLOOD SPECIMENOrdering Facility: [facility] Address: [address] [place] [address] Result Comment: Hilda mated Glomerular Filtration Rate [...] GFR. Performed By: #### 2 4321-2 ####[facility] LABCLIA [id number] [place] [id number] [place] Glucose [Mass/Vol] 244 mg/dL High 74-99 [facility] Comment on above: Order Comment: Speci men Type: BLOOD SPECIMENOrdering Facility: [facility] Address: [address] [place] [address] Result Comment: The [place] Diabetes Association (ADA) provides guidance for cutoff [...] Standards of Medical Care in Diabetes 2016, [place] Diabetes Association. Diabetes Care. 2016.39(Suppl 1). Performed By: #### 2 4321-2 ####[facility] LABCLIA [id number] [place] [address] [place] Potassium [Moles/Vol] 5.2 mmol/L High 3.7-5.1 [facility] Comment on above: Order Comment: Speci men Type: BLOOD SPECIMENOrdering Facility: [facility] Address: [address] [place] [address] Performed By: #### 2 4321-2 ####[facility] LABCLIA [id number] [place] [address] [place] Sodium [Moles/Vol] 135 mmol/L Low 136-144 [facility] Comment on above: Order Comment: Speci men Type: BLOOD SPECIMENOrdering Facility: [facility] Address: [address] [place] [address] Performed By: #### 2 4321-2 ####[facility] LABCLIA [id number] [place] [id number] [place] Urea nitrogen [Mass/Vol] 30 mg/dL High 7-21 [facility] Comment on above: Order Comment: Speci men Type: BLOOD SPECIMENOrdering Facility: [facility] Address: [address] [place] [address] Performed By: #### 2 4321-2 ####[facility] LABCLIA [id number] [place] [address] [place] HbA1c (Bld)on 07-11-2024 Average glucose Estimated from glycated hemoglobin (Bld) [Mass/Vol] 189 mg/dL Normal [facility] Comment on above: Order Comment: Fan meade Type: BLOOD SPECIMENOrdering Facility: [facility] Address: [address] [place] [address] Result Comment: eAG: (Estimated average glucose) is a calculated value from HgbA1c and is financial sales representative of the average blood glucose level in the last 2-3 month period. Performed By: #### 5 5454-3 ####[facility] LABCLIA [id number] [address] HbA1c (Bld) [Mass fraction] 8.2 % High 4.3-5.6 [facility] Comment on above: Order Comment: Fan meade Type: BLOOD SPECIMENOrdering Facility: [facility] Address: [address] [place] [address] Result Comment: Amer [place] Diabetes Association guidelines indicate that patients with HgbA1c in the range 5.7-6.4% are at increased risk for development of diabetes, and intervention by lifestyle modification may be beneficial. HgbA1c greater or equal to 6.5% is considered diagnostic of diabetes. Performed By: #### 5 5454-3 ####[facility] LABCLIA [id number] [address] OF [facility] LIPID PANEL, NONFASTINGon Cholesterol [Mass/Vol] 151 mg/dL Normal <200 [facility] Comment on above: Order Comment: Fan meade Type: BLOOD SPECIMEN [facility] Address: [address] [place] [address] Result Comment: <200 mg/dL, Desirable 200-239 mg/dL, Borderline high >239 mg/dL, High Performed By: #### 2 276-4, 2132-9, 03180-4, 2284-8 #### [facility] LAB CLIA [id number] [place] HDL CHOLESTEROL, NF 59 mg/dL Normal >39 [facility] Comment on above: Order Comment: Fan meade Type: BLOOD SPECIMEN [facility] Address: [address] [place] [address] Result Comment: 40-5 9 mg/dL, Acceptable >59 mg/dL, High: Negative risk factor for coronary heart disease <40 mg/dL, Low: Positive risk factor for coronary heart disease Performed By: #### 2 276-4, 2-9, 03883-2, 2284-8 #### [facility] LAB CLIA [id number] [address] [place] [address] OF [facility] LDL CHOLESTEROL, NF 71 mg/dL Normal <100 [facility] Comment on above: Order Comment: Fan meade Type: BLOOD SPECIMEN [facility] Address: [address] [place] [address] Result Comment: <100 mg/dL, Optimal 100-129 mg/dL, Near optimal/above optimal 130-159 mg/dL, Borderline high 160-189 mg/dL, High >189 mg/dL, Very high Secondary prevention optimal LDL Cholesterol levels are recommended to be < 70 mg/dL Performed By: #### 2 276-4, 2-9, 52371-7, 2284-8 #### [facility] LAB CLIA [id number] [address] [place] [address] [place] LDL/HDL RATIO, NF 1.20 mg/dL Normal <2.54 [facility] Comment on above: Order Comment: Fan meade Type: BLOOD SPECIMEN [facility] Address: [address] [place] [address] Result Comment: Isabella johnson: 1. National Cholesterol Education Program ATP III Guideline At-A-Glance Quick Desk Reference: National Heart, Lung, and Blood [place]. National Institutes of Health. 2001: NIH Publication No. 01-3305. 2. An International Atherosclerosis Society position paper: global recommendations for the management of dyslipidemia: executive summary, Atherosclerosis. 2014: 232(2):410-413. Performed By: #### 2 276-4, 9, 60099-2, 2284-06 #### [facility] CLIA [id number] [address] [place] [address] [place] NON HDL CHOL, NF 92 mg/dL Normal <130 [facility] Comment on above: Order Comment: Fan meade Type: BLOOD SPECIMEN [facility] Address: [address] [place] [address] Result Comment: <130 mg/dL, Optimal 130-159 mg/dL, Near optimal/above optimal 160-189 mg/dL, Borderline high 190-219 mg/dL, High >219 mg/dL, Very high Secondary prevention optimal non HDL Cholesterol levels are recommended to be <100 mg/dL Performed By: #### 2 276-4, 2132-07, 18593-7, 2284-06 #### [facility] CLIA [id number] [address] [place] [address] [place] T CHOL/HDL RATIO NF 2.56 mg/dL Normal <5.10 [facility] Comment on above: Order Comment: Fan meade Type: BLOOD SPECIMEN [facility] Address: [address] [place] [address] Performed By: #### 2 276-4, 2132-07, 93038-7, 2284-06 #### [facility] CLIA [id number] [address] [place] [address] [place] TRIGLYCERIDES, NF 107 mg/dL Normal <150 [facility] Comment on above: Order Comment: Fan meade Type: BLOOD SPECIMEN [facility] Address: [address] [place] [address] Result Comment: <150 mg/dL, Normal 150-199 mg/dL, Borderline high 200-499 mg/dL, High >499 mg/dL, Very high Performed By: #### 2 276-4, 2132-07, 96134-9, 4-8 #### [facility] CLIA [id number] [address] [place] [address] [place] VLDL CHOLESTEROL, NF 21 mg/dL Normal <30 [facility] Comment on above: Order Comment: Speci men Type: BLOOD SPECIMEN [facility] Address: [address] [place] [address] Performed By: #### 2 276-4, 2132-9, 67985-4, 8 #### [facility] CLIA [id number] [address] [place] [address] [place] CNPNon 04-16-2024 CNPN Telephone (MEGANO) YUSUF MEDINA ([id number]) 1935 F ALBERTO Date Time Provider Department 04/16/24 MIGDALIA CRAMER During your visit today, we recorded the following information about you: Perla Cramer 04/16/2024 11:24 AM Signed Patients sister in law Augustin called and needs clarification on the patient diabetes medications she stated that she got a call from [facility] stating that 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 Problem List As Of Date [...] 2 d (more content not included)... Normal [facility] Health Progress Noteon 12-09-2021 Home Health Progress Note Follow up call placed to patient regarding HHC. Spoke with Yusuf regarding services. Patient states no services needed and hung up on caller. [facility] BASICMETAon 12-07-2021 GFR AA 45 [facility] Comment on above: Result Comment: Afri can Taiwanese GFR Calc Medical judgement is necessary to [...] for drug dosing. Performed By: #### C D:[id number], 5287530, 602727, 191242, 509021, 141466 #### [facility] [address] [place] [address] Hall Manager: Robert Ybarra MD Glomerular Filtration Rate 37 mL/min/1.73m? Normal [facility] Comment on above: Result Comment: Non GFR [...] for drug dosing. Performed By: #### C D:[id number], 2117769, 556674, 142564, 373573, 384479 #### [facility] [address] [place] [address] Hall Manager: Robert Ybarra MD Osmolality [Osmolality] 287 mosm/kg Normal 275-295 [facility] Comment on above: Performed By: #### C D:[id number], 9131427, 679676, 440132, 913245, 215523 #### [facility] [address] [place] [address] Hall Manager: Robert Ybarra MD Urea nitrogen/Creatinine [Mass ratio] 19.1 mg/mg Normal [facility] Comment on above: Performed By: #### C D:[id number], 4718184, 028996, 452367, 519495, 572558 #### [facility] [address] [place] [address] Hall Manager: Robert Ybarra MD Calcium [Mass/Vol] 9.7 mg/dL Normal 8.5-10.5 [facility] Comment on above: Performed By: #### C D:[id number], 1331089, 498381, 318929, 467663, 202283 #### [facility] [address] [place] [address] Hall Manager: Robert Ybarra MD Chloride [Moles/Vol] 107 mmol/L Normal 100-109 [facility] Comment on above: Performed By: #### C D:[id number], 7958573, 927726, 415411, 855822, 120103 #### [facility] [address] [place] [address] Hall Manager: Robert Ybarra MD CO2 [Moles/Vol] 25.9 mmol/L Normal 21.0-32.0 [facility] Comment on above: Performed By: #### C D:[id number], 3230145, 568893, 290892, 378725, 176173 #### [facility] [address] [place] [address] Hall Manager: Robert Ybarra MD Creatinine [Mass/Vol] 1.4 mg/dL High 0.6-1.0 [facility] Comment on above: Performed By: #### C D:122944842, 8443909, 429675, 999579, 673335, 534141 #### [facility] [address] [place] [address] Hall Manager: Robert Ybarra MD Glucose [Mass/Vol] 177 mg/dL High 72-100 [facility] Comment on above: Result Comment: Shireen puncture should occur prior to sulfasalazine administration due to the potential for falsely depressed results. Venipuncture should occur prior to sulfapyridine administration due to the potential falsely elevated results. Baseline assay values before administration of sulfasalazine and sulfapyridine therapy would not be affected. Performed By: #### C D:[id number], 7446118, 470204, 410779, 796398, 477691 #### [facility] [address] [place] [address] Hall Manager: Robert Ybarra MD Potassium [Moles/Vol] 4.7 mmol/L Normal 3.5-5.1 [facility] Comment on above: Performed By: #### C D:083874813, 0174565, 694502, 722969, 392195, 493528 #### [facility] [address] [place] [address] Hall Manager: Robert Ybarra MD Sodium [Moles/Vol] 139 mmol/L Normal 135-145 [facility] Comment on above: Performed By: #### C D:[id number], 4643178, 153106, 975224, 589278, 910628 #### [facility] [address] [place] [address] Hall Manager: Robert Ybarra MD Urea nitrogen [Mass/Vol] 26 mg/dL High 10-20 [facility] Comment on above: Performed By: #### C D:395989059, 6340860, 965409, 824133, 609951, 336723 #### [facility] [address] [place] [address] Hall Manager: Robert Ybarra MD CPKon 12-07-2021 CPK 1185 unit/L Critically abnormal 26-192 [facility] Comment on above: Result Comment: Crit ical Result(s) called at: 13:24:37 on 12/07/2021 by: MIRNA rechecked, RBR to: Dr. Beckford Performed By: #### C D:[id number], 7405406, 127685, 302167, 502354, 150976 #### [facility] [address] [place] [address] Hall Manager: Robert Ybarra MD Utilization Review Noteon Utilization Review Note Inpatient recomm ended. Inpatient ordered. Patient with #1 acute hypothermia. YUSUF MEDINA 12/03/21 [id number] CCE 200 INPT UPDATED CERNER TO [facility] Verified admit thru the portal [id number] PATIENT ALREADY DISCHARGED AT THE TIME OF THIS REVIEW. Faxed Normal [facility] Discharge Educationon 2021 Discharge Education Patient Education Material Normal [facility] Inpatient Patient Summaryon 12-05-2021 Inpatient Patient Summary [facility] Discharge Instructions [address] [place] [address] \.br\(Patient Copy)\.br\ \.br\ \.br\Name: UYSUF MEDINA : 1935 \.br\Diagnosis: Abrasion of right elbow; Benign essential hypertension; Chronic kidney disease (CKD), stage III (moderate); Contusion of right thigh; Diabetes mellitus type II, controlled; acute Hypothermia \.br\ \.br\Allergies: No Known Allergies\.br\ \.br\Registration Date: 12/03/21\.br\\.br\\.br \ \.br\ Current Date Time: 12/05/2021 07:42:18 \.br\ \.br\Address: [address] [place] [address] \.br\ \.br\ \.br\Primary Care Provider: \.br\Name: RADHA CRAMER\.br\ \.br\ \.br\Thank you for choosing [facility] for your care. You are very important to us. Our goal is to demonstrate our high quality medical care and provide you with a very good patient experience.\.br\ You may receive a survey about our service. Please take the time to complete the survey and return it so we can continue to enhance our service.\.br\ Thank you again for allowing [facility] to care for your medical needs. [...] in more information on smoking cessation, contact [facility] [phone]\.br\ \.br\ DIET Eat a variety of nutritious [...] Connection / Physician Referral and Health Information [phone].\.br\[facility] [place] 1-248-PTM-BEAT ( )\.br\S easons [facility] a Woman?s Life [phone] \.br\ \.br\ Call immediately if you or [...] discomfort: M (more content not included)... Normal [facility] AUTO DIFFon 12-04-2021 Baso Count 0.05 x1000 Normal 0.00-0.20 [facility] Comment on above: Performed By: #### 1 27605, 072944, 097165, 1956852 ####[facility] [address] [place] [address] Medical Director: Robert Ybarra MD Basos % 0.5 % Normal [facility] Comment on above: Performed By: #### 1 , 551339, 776356, 7341450 ####[facility] [address] [place] [address] Medical Director: Robert Ybarra MD Eos Count 0.01 x1000 Normal 0.00-0.50 [facility] Comment on above: Performed By: #### 1 , 459856, 322244, 5841958 ####[facility] [address] [place] [address] Medical Director: Robert Ybarra MD Eosinophils/100 WBC (Bld) 0.1 % Normal [facility] Comment on above: Performed By: #### 1 , 739279, 665199, 7485905 ####[facility] [address] [place] [address] Medical Director: Robert Ybarra MD Lymph Count 1.19 x1000 Low 1.20-4.80 [facility] Comment on above: Performed By: #### 1 , 049096, 177984, 9301579 ####[facility] [address] [place] [address] Medical Director: Robert Ybarra MD Lymphocytes/100 WBC (Bld) 11.8 % Normal [facility] Comment on above: Performed By: #### 1 , 020746, 964840, 1964757 ####[facility] [address] [place] [address] Medical Director: Robert Ybarra MD [place] Count 0.57 x1000 Normal 0.10-1.00 [facility] Comment on above: Performed By: #### 1 , 218686, 520228, 4261516 ####[facility] [address] [place] [address] Medical Director: Robert Ybarra MD Monocytes/100 WBC (Bld) 5.6 % Normal S [facility] Comment on above: Performed By: #### 1 , 185772, 419917, 9789244 ####[facility] [address] [place] [address] Medical Director: Robert Ybarra MD Neutrophil Count (ANC) 8.28 x1000 Normal 1.40-8.80 So [facility] Comment on above: Performed By: #### 1 , 030715, 795619, 6507774 ####[facility] [address] [place] [address] Medical Director: Robert Ybarra MD Neutrophils/100 WBC (Bld) 82.0 % Normal [facility] Comment on above: Performed By: #### 1 , 728890, 283001, 0108922 ####[facility] [address] [place] [address] Medical Director: Robert Ybarra MD B12 FOLATEon 12-04-2021 Cobalamin (Vitamin B12) [Mass/Vol] 455 pg/mL Normal 193-986 [facility] Comment on above: Performed By: #### 1 , 216946, 135191, 3324543 ####[facility] [address] [place] [address] Medical Director: Robert Ybarra MD FOLATE 14.3 ng/mL Normal 3.1-17.5 [facility] Comment on above: Performed By: #### 1 , 281968, 883301, 9934968 ####[facility] [address] [place] [address] Medical Director: Robert Ybarra MD BLD GASon 12-04-2021 MAGGIE TEST Normal [facility] Comment on above: Performed By: #### C D:[id number], 9146100, 474210, 780847, 423532, 653460 #### [facility] Services [address] [place] [address] Hall Manager: Robert Ybarra MD Base Excess -5.0 mmol/L [facility] Comment on above: Performed By: #### C D:362950897, 2952975, 786857, 135784, 447064, 457494 #### [facility] [address] [place] [address] Hall Manager: Robert Ybarra MD ePAP 0 cmH20 [facility] Comment on above: Performed By: #### C D:[id number], 7759436, 423746, 233833, 263537, 547347 #### [facility] [address] [place] [address] Hall Manager: Robert Ybarra MD FIO2 36 % [facility] Comment on above: Performed By: #### C D:173033540, 8480916, 862936, 730167, 231277, 036004 #### [facility] [address] [place] [address] Hall Manager: Robert Ybarra MD HCO3 (Bld) [Moles/Vol] 19.8 mmol/L Low 22.0-26.0 S [facility] Comment on above: Performed By: #### C D:418883759, 5220280, 016568, 743101, 038589, 445042 #### [facility] [address] [place] [address] Hall Manager: Robert Ybarra MD iPAP 0 cmH20 [facility] Comment on above: Performed By: #### C D:395900900, 8432442, 902288, 192572, 841573, 635593 #### [facility] [address] [place] [address] Hall Manager: Robert Ybarra MD O2 L/M 4.0 Normal [facility] Comment on above: Performed By: #### C D:943029349, 6494173, 313285, 579530, 136835, 186160 #### [facility] [address] [place] [address] Hall Manager: Robert Ybarra MD Oxygen (Bld) [Partial pressure] 82.0 mm[Hg] Normal 80.0-100.0 [facility] Comment on above: Performed By: #### C D:589728606, 2259942, 171561, 166116, 931399, 847078 #### [facility] [address] [place] [address] Hall Manager: Robert Ybarra MD Oxygen saturation in Blood 94.1 % Normal [facility] Comment on above: Performed By: #### C D:190318057, 8919901, 625074, 452466, 239326, 516496 #### [facility] [address] [place] [address] Hall Manager: Robert Ybarra MD PCO2 35.6 mmHg Normal 35.0-45.0 [facility] Comment on above: Performed By: #### C D:127065176, 5436977, 765870, 577586, 148104, 450938 #### [facility] [address] [place] [address] Hall Manager: Robert Ybarra MD PEEP 0.0 cmH20 Normal [facility] Comment on above: Performed By: #### C D:254419654, 2020155, 013877, 480876, 845966, 050878 #### [facility] [address] [place] [address] Hall Manager: Robert Ybarra MD pH (Bld) 7.363 [pH] Normal 7.350-7.450 [facility] Comment on above: Performed By: #### C D:501360010, 2252459, 251268, 303009, 336076, 360594 #### [facility] [address] [place] [address]272 Hall Manager: Robert Ybarra MD PO2/FiO2 Ratio 228 Low 300-500 [facility] Administration Comment on above: Performed By: #### C D:[id number], 1495115, 655982, 392538, 993970, 642239 #### [facility] [address] [place] [address] 17428 Hall Manager: Robert Ybarra MD Pressure Support. 0 cmH20 [facility] Comment on above: Performed By: #### C D:[id number], 8658291, 136445, 621815, 691008, 876241 #### [facility] Laboratory Services [address] [place] [address] 10412 Hall Manager: Robert Ybarra MD RATE 0 bpm [facility] Comment on above: Performed By: #### C D:[id number], 3577463, 822443, 213580, 379064, 154146 #### [facility] Laboratory Services [address] [place] [address] 92066 Hall Manager: Robert Ybarra MD TEMP 37.0 degC Normal <=37.0 [facility] Comment on above: Performed By: #### C D:[id number], 7394787, 865976, 955425, 667573, 150197 #### [facility] Services [address] [place] [address] 56050 Hall Manager: Robert Ybarra MD Type of Specimen RB Art Normal [facility] Comment on above: Result Comment: RR A RT = Right Artery RB ART = Right Brachial Artery LR ART = Left Radial Artery LB ART = Left Brachial Artery RF ART = Right Femoral Artery LF ART = Left Femoral Artery Performed By: #### C D:[id number], 3044822, 410018, 791573, 288918, 522201 #### [facility] [address] [place] [address] 56518 Hall Manager: Robert Ybarra MD Ventilation Nasalcan Normal [facility] Comment on above: Performed By: #### C D:[id number], 3688358, 318785, 384208, 543942, 747119 #### [facility] [address] [place] [address] 32158 Hall Manager: Robert Ybarra MD VT 00 mL Normal [facility] Comment on above: Performed By: #### C D:[id number], 5248809, 338970, 717353, 717791, 790914 #### [facility] Services [address] [place] [address] 57359 Hall Manager: Robert Ybarra MD CBCNDon 12-04-2021 Erythrocyte distribution width (RBC) [Ratio] 14.2 % Normal 11.5-14.5 [facility] Comment on above: Performed By: #### C D:[id number], 1368213, 223542, 449705, 131078, 305041 #### [facility] Services [address] [place] [address] 89255 Hall Manager: Robert Ybarra MD Hematocrit (Bld) [Volume fraction] 30.1 % Low 36.0-46.0 [facility] Comment on above: Performed By: #### C D:053602930, 4184124, 650636, 872079, 325968, 721702 #### [facility] [address] [place] [address] 28101 Hall Manager: Robert Ybarra MD Hemoglobin (Bld) [Mass/Vol] 10.1 g/dL Low 12.0-16.0 [facility] Comment on above: Performed By: #### C D:[id number], 3748018, 369626, 432514, 278972, 915110 #### [facility] [address] [place] [address] 50993 Hall Manager: Robert Ybarra MD Instr WBC ND 13.8 Normal [facility] Comment on above: Performed By: #### C D:460641503, 0345585, 189198, 254855, 326432, 962948 #### [facility] Services [address] [place] [address] 34152 Hall Manager: Robert Ybarra MD MCH (RBC) [Entitic mass] 29.8 pg Normal 27.0-34.0 [facility] Comment on above: Performed By: #### C D:[id number], 3670074, 295998, 882390, 312260, 812595 #### [facility] Services [address] [place] [address] 46286 Hall Manager: Robert Ybarra MD MCHC (RBC) [Mass/Vol] 33.6 g/dL Normal 32.0-37.0 [facility] Comment on above: Performed By: #### C D:313375936, 7814210, 119765, 690202, 403520, 393809 #### [facility] Services [address] [place] [address] 41242 Hall Manager: Robert Ybarra MD MCV (RBC) [Entitic vol] 88.9 fL Normal 80.0-100.0 [facility] Comment on above: Performed By: #### C D:927680609, 4339691, 104804, 918289, 303135, 635672 #### [facility] Services [address] [place] [address] 76063 Hall Manager: Robert Ybarra MD Platelet 294 x1000 Normal 150-450 [facility] Comment on above: Performed By: #### C D:661345815, 8017966, 867605, 573999, 589028, 824903 #### [facility] Services [address] [place] [address] 80635 Hall Manager: Robert Ybarra MD Platelet mean volume (Bld) [Entitic vol] 6.9 fL Low 7.4-10.4 [facility] Comment on above: Performed By: #### C D:[id number], 4735512, 354874, 338764, 505076, 689998 #### [facility] Services [address] [place] [address] 70037 Hall Manager: Robert Ybarra MD RBC 3.38 x10 Low 4.20-5.40 [facility] Comment on above: Result Comment: Note : RBC morphology is normal unless otherwise stated. Evaluation performed only if differential is requested. Performed By: #### C D:761975139, 2105551, 191675, 206424, 336068, 832825 #### [facility] Services [address] [place] [address] 94728 Hall Manager: Robert Ybarra MD WBC 13.8 x10 High 4.5-11.0 [facility] Comment on above: Performed By: #### C D:632122493, 7108406, 292420, 142122, 046725, 389993 #### [facility] Services [address] [place] [address] 38392 Hall Manager: Robert Ybarra MD COMPMETAon 12-04-2021 Albumin [Mass/Vol] 2.9 g/dL Low 3.4-5.0 [facility] Comment on above: Performed By: #### C D:414803480, 2058270, 747015, 782837, 791408, 800947 #### [facility] [address] [place] [address] 69218 Hall Manager: Robert Ybarra MD Albumin/Globulin [Mass ratio] 1.2 {ratio} Normal [facility] Comment on above: Performed By: #### C D:170037667, 7617858, 022483, 855714, 174125, 000234 #### [facility] Services [address] [place] [address] 63906 Hall Manager: Robert Ybarra MD Alk Phos 58 unit/L Normal 45-117 [facility] Comment on above: Performed By: #### C D:802950447, 1280628, 818554, 346210, 478819, 075738 #### [facility] Services [address] [place] [address] 53632 Hall Manager: Robert Ybarra MD Bilirubin [Mass/Vol] 0.25 mg/dL Normal 0.20-1.00 [facility] Comment on above: Result Comment: Use of this assay is not recommended for patients undergoing treatment with eltrombopag due to the potential for falsely elevated results. Performed By: #### C D:[id number], 9603040, 689945, 786311, 300617, 521134 #### [facility] Services [address] [place], [place] [address] Hall Manager: Robert Ybarra MD Calcium [Mass/Vol] 8.5 mg/dL Normal 8.5-10.5 [facility] Comment on above: Performed By: #### C D:089358549, 3271319, 673494, 788255, 051104, 622980 #### [facility] Services [address] [place], [place] [address] Hall Manager: Robert Ybarra MD Chloride [Moles/Vol] 106 mmol/L Normal 100-109 [facility] Comment on above: Performed By: #### C D:090861729, 6727323, 972318, 944894, 570096, 222503 #### [facility] [address] [place] [address] 59085 Hall Manager: Robert Ybarra MD CO2 [Moles/Vol] 22.7 mmol/L Normal 21.0-32.0 [facility] Comment on above: Performed By: #### C D:881074825, 9656519, 749219, 803227, 722831, 077992 #### [facility] [address] [place] [address] 20983 Hall Manager: Robert Ybarra MD Creatinine [Mass/Vol] 1.3 mg/dL High 0.6-1.0 [facility] Comment on above: Performed By: #### C D:[id number], 1756843, 451738, 937520, 312588, 156334 #### [facility] Services [address] [place] [address] 43284 Hall Manager: Robert Ybarra MD GFR AA 46 [facility] Comment on above: Result Comment: Afri can Taiwanese GFR Calc Medical judgement is necessary to [...] for drug dosing. Performed By: #### C D:[id number], 6372443, 782694, 808439, 785776, 712722 #### [facility] [address] [place] [address] 04435 Hall Manager: Robert Ybarra MD Globulin (S) [Mass/Vol] 2.4 g/dL Normal [facility] Comment on above: Performed By: #### C D:[id number], 1386715, 390706, 099243, 887427, 995747 #### [facility] [address] [place] [address] 71186 Hall Manager: Robert bYarra MD Glomerular Filtration Rate 38 mL/min/1.73m? Normal [facility] Comment on above: Result Comment: Non GFR [...] for drug dosing. Performed By: #### C D:161989361, 0570356, 034519, 477377, 817719, 536488 #### [facility] [address] [place] [address] 83877 Hall Manager: Robert Ybarra MD Glucose [Mass/Vol] 186 mg/dL High 72-100 [facility] Comment on above: Result Comment: Shireen puncture should occur prior to sulfasalazine administration due to the potential for falsely depressed results. Venipuncture should occur prior to sulfapyridine administration due to the potential falsely elevated results. Baseline assay values before administration of sulfasalazine and sulfapyridine therapy would not be affected. Performed By: #### C D:[id number], 4500326, 527641, 644802, 794849, 966484 #### [facility] Services [address] [place], [place] [address] Hall Manager: Robert Ybarra MD GOT 123 unit/L High 15-37 [facility] Comment on above: Result Comment: revi ewed Venipuncture should occur prior to sulfasalazine and/or sulfapyridine administration due to the potential for falsely depressed results. Baseline assay values before administration of sulfasalazine and sulfapyridine therapy would not be affected. Performed By: #### C D:[id number], 7737576, 942229, 323730, 212505, 549735 #### [facility] Services [address] [place], [place] [address] Hall Manager: Robert Ybarra MD GPT 92 unit/L High 13-56 [facility] Comment on above: Result Comment: revi ewed Venipuncture should occur prior to sulfasalazine and/or sulfapyridine administration due to the potential for falsely depressed results. Baseline assay values before administration of sulfasalazine and sulfapyridine therapy would not be affected. Performed By: #### C D:[id number], 3306920, 769149, 120716, 023786, 176159 #### [facility] [address] [place] [address] Hall Manager: Robert Ybarra MD Osmolality [Osmolality] 289 mosm/kg Normal 275-295 [facility] Comment on above: Performed By: #### C D:543112187, 6708351, 035428, 754770, 974004, 392233 #### [facility] [address] [place] [address] 23305 Hall Manager: Robert Ybarra MD Potassium [Moles/Vol] 4.3 mmol/L Normal 3.5-5.1 [facility] Comment on above: Performed By: #### C D:[id number], 8679490, 606073, 430913, 702595, 088673 #### [facility] [address] [place] [address] 93063 Hall Manager: Robert Ybarra MD Protein [Mass/Vol] 5.3 g/dL Low 6.0-8.5 [facility] Comment on above: Performed By: #### C D:714483149, 9700775, 917556, 489199, 788604, 320516 #### [facility] [address] [place] [address] 27063 Hall Manager: Robert Ybarra MD Sodium [Moles/Vol] 137 mmol/L Normal 135-145 [facility] Comment on above: Performed By: #### C D:106504858, 2101241, 441054, 413103, 508166, 512480 #### [facility] [address] [place] [address] 81809 Hall Manager: Robert Ybarra MD Urea nitrogen [Mass/Vol] 42 mg/dL High 10-20 [facility] Comment on above: Performed By: #### C D:339821032, 2223827, 764610, 430203, 052566, 017592 #### [facility] [address] [place] [address] 44130 Hall Manager: Robert Ybarra MD Urea nitrogen/Creatinine [Mass ratio] 31.8 mg/mg Normal [facility] Comment on above: Performed By: #### C D:220900395, 2801994, 202315, 159576, 419225, 619317 #### [facility] [address] [place] [address] 44130 Hall Manager: Robert Ybarra MD CPKon 12-04-2021 CPK 3684 unit/L Critically abnormal [address] [place] [address] Comment on above: Result Comment: Crit ical Result(s) called at: 17:08:41 on 12/04/2021 by: Kp dennison, RBR to: TC Performed By: #### C D:[id number], 8754656, 952169, 200763, 129421, 238075 #### [facility] [address] [place] [address] 44130 Hall Manager: Robert Ybarra MD CPK 2217 unit/L Critically abnormal [address] [place] [address] Comment on above: Result Comment: Crit ical Result(s) called at: 04:10:50 on 12/04/2021 by: Byron dennison, RBR to: SF&XA&&XA&reviewed Performed By: #### C D:[id number], 8605076, 983496, 150922, 888987, 328269 #### [facility] [address] [place] [address] 44130 Hall Manager: Robert Ybarra MD CPK 926 unit/L High [address] [place] [address] Comment on above: Performed By: #### 1 93571 ####[facility] Laboratory [address] [place] [address] 44130 Medical Director: Robert Ybarra MD Consult Reporton 12-04-2021 Consult Report Patient: YUSUF MEDINA Age: 85 years Sex: Female : 1935 Associated Diagnoses: None Author: YENNY HODGE, [facility] Consult Note IMPRESSION: Mechanical fall. Rhabdomyolysis Type II DE elevated troponin without ACS Afib with slow [...] MG TAB 650 mg 2 tabs, ORAL, [id number] ACETAMINOPHEN 325 MG TAB 650 mg 2 tabs, ORAL, [id number] DEXTROSE 50% 50ML SYRINGE/VIAL 12.5 g 25 mL, IV Push, PRN DEXTROSE 50% 50ML SYRINGE/VIAL 25 g 50 mL, IV Push, PRN GLUCAGON 1MG INJ 1 mg, IM, PRN GLUCOSE GEL 15GM/42ML 15 g 1 packets, ORAL, PRN GLUCOSE GEL 15GM/42ML 30 g 2 packets, ORAL, PRN ONDANSETRON=ZOFRAN INJ 4 mg 2 mL, IV Push, [id number] Allergies (1) Active Reaction No Known Allergies [...] available. BNP No qualifying data available. Normal [facility] Consult Report Patient: YUSUF MEDINA Age: 85 years Sex: Female : 1935 Associated Diagnoses: None Author: ERIC DENTON MD History of Present Illness 85-year-old lady. Admitted 12/03/2021 Fell. Also confused. History was limited also because of language barrier. Apparently lives alone. 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 She fell. Unknown why she fell [...] is able to speak little bit of Haitian. Her son lives in the [facility]. She lives alone. She said she went to garbage pick up worker eggs in the chicken coop and there [...] MG TAB 650 mg 2 tabs, ORAL, [id number] ACETAMINOPHEN 325 MG TAB 650 mg 2 tabs, ORAL, [id number] DEXTROSE 50% 50ML SYRINGE/VIAL 12.5 g 25 mL, IV Push, PRN DEXTROSE 50% 50ML SYRINGE/VIAL 25 g 50 mL, IV Push, PRN GLUCAGON 1MG INJ 1 mg, IM, PRN GLUCOSE GEL 15GM/42ML 15 g 1 packets, ORAL, PRN GLUCOSE GEL 15GM/42ML 30 g 2 packets, ORAL, PRN ONDANSETRON=ZOFRAN INJ 4 mg 2 mL, IV Push, [id number] PERFLUTREN 2 ML INJ 2 ML, IV [...] language were okay. She spoke in broken Haitian. Good eye contact. Followed commands. She knew [...] Glucose Random (more content not included)... Normal [facility] Consult Report Patient: YUSUF MEDINA Age: 85 [...] Tylenol: 650 mg = 2 tabs, ORAL, [id number], PRN: Mild Pain Tylenol: 650 mg = 2 tabs, ORAL, [id number], PRN: Temperature Above 102 Zofran: 4 mg = 2 mL, IV Push, [id number], PRN: Nausea/Vomiting glucagon: 1 mg, IM, PRN, [...] MG TAB 650 mg 2 tabs, ORAL, [id number] ACETAMINOPHEN 325 MG TAB 650 mg 2 tabs, ORAL, [id number] DEXTROSE 50% 50ML SYRINGE/VIAL 12.5 g 25 mL, IV Push, PRN DEXTROSE 50% 50ML SYRINGE/VIAL 25 g 50 mL, IV Push, PRN GLUCAGON 1MG INJ 1 mg, IM, PRN GLUCOSE GEL 15GM/42ML 15 g 1 packets, ORAL, PRN GLUCOSE GEL 15GM/42ML 30 g 2 packets, ORAL, PRN ONDANSETRON=ZOFRAN INJ 4 mg 2 mL, IV Push, [id number] PERFLUTREN 2 ML INJ 2 ML, IV [...] No activ (more content not included)... Normal [facility] ED Discharge Educationon ED Discharge Education Normal So [facility] ED Patient Summaryon 022 ED Patient Summary [facility] Emergency Department Discharge Instructions [address] [place] [address] \.br\(Patient Copy)\.br\ \.br\Name: YUSUF MEDINA : 1935 \.br\Allergies: No Known Allergies\.br\Diagnosi s: Diagnoses This Visit\.br\ Abrasion of right elbow (S50.311A)\.br\ acute Hypothermia (T68.XXXA)\.br\ Contusion of right thigh (S70.11XA)\.br\ Fall ([id number])\.br\ Hypothermia due to exposure ([id number])\.br\\ .br\\.br\ \.br\ Visit Date: 12/03/2021 19:54:53 \.br\ Current Date Time: 12/04/2021 01:06:15 \.br\Address: [address] [place] [address] \.br\ \.br\ \.br\Primary Care Provider: \.br\Name: RADHA CRAMER\.br\ \.br\ \.br\Emergency Department Care Providers: \.br\ Primary Physician: IDA ALMODOVAR MD \.br\ \.br\ \.br\\.br\Thank you for choosing [facility] for your emergency care. You are very important to us. Our goal is to demonstrate our high quality medical care, and provide you with a very good patient experience.\.br\\.br\Y ou may receive a survey about our service. Please take the time to complete the survey and return it so we can continue to enhance our service.\.br\\.br\Than k you again for allowing the [facility] Emergency Department to care for your medical needs. If you have questions about your care or follow up information please contact us at [phone].\.br\\.br \ Follow-Up Instructions\.br\ \.b r\YUSUF MEDINA has been given these follow-up instructions:\.br\\.br \Patient Education Materials\.br\ \.br\YUSUF RUDD has been given the following patient education materials:\.br\\.br\ \.br\BEFORE YOU LEAVE\.br\\.br\Set up your [facility] [employer] account!\.br\ \.br\[employer] is a secure, online health management tool that connects you to portions of your hospital-based electronic medical record, allowing you to see test results, manage appointments, access discharge care instructions and much more.\.br\ \.br\You can access [employer] from a computer, tablet or smartphone. Enrollment/registratio n is required. If you do not have a [employer] account, please provide us with an email address before you leave so that we may set up an account for you.\.br\ \.br\New to [employer]!\.br\You may now securely connect some of the health management apps you use (e.g., fitness trackers, dietary trackers, etc.) to your health record in [facility] [employer]. This new feature provides expanded access to your health and wellness data, which will help you and your care team make informed decisions about your health care. \.br\If you are interested in using a health management gordo not currently connected to [employer], contact a Community Recreation Coordinator at [phone] or [email or web address]. We will determine if the gordo meets the technical requirements to connect to [facility] [employer] and assure the security of your private [...] health or substance abuse issue, please call [facility] at [phone] or the National Suicide Prevention Lifeline at .\.br\ \.br\\.br\ \.br\ \.br\CAROL Almazan VIORICA, have received the follow-up provider(s) list, medication information and patient education materials/instructions and have verbalized understanding.\.br\ \.br\ \.br\Patient Signature \.br\Kalen e \.br\Leif e \.br\ \.br\ \.br\ Provider Signature \.br\Aklen e \.br\Leif e Normal [facility] ED Physician Reporton 2021 ED Physician Report [...] 20:47:00, rate 37, No ST-T changes, normal AL & QRS intervals, EP Interp, The Rhythm [...] \.br\ Lymph % 24.2 % NA \.br\ [place] % 3.7 % NA \.br\ Neutrophil % 70.8 % NA \.br\ Eosin % 0.9 % NA \.br\ Basos % 0.4 % NA \.br\ Lymph Count 5.46 x1000 HI \.br\ [place] Count 0.84 x1000 NORMAL \.br\ Neutrophil Count [...] mg/dL H (more content not included)... Normal [facility] ED Progress Noteon ED Progress Note 12/03/211954 PT TO ROOM 12 ARRIVED BY SQUAD TRAUMA CALLED FROM FIELD, SEE PAPER CHART FOR INFO. Normal [facility] HEMOon 12-04-2021 DIFF? No Normal [facility] Comment on above: Performed By: #### 1 22397, 373244, 513024, 0472835 ####[facility] [address] [place] [address] Medical Director: Robert Ybarra MD Erythrocyte distribution width (RBC) [Ratio] 14.7 % High 11.5-14.5 [facility] Comment on above: Performed By: #### 1 , 441884, 732270, 9391879 ####[facility] [address] [place], [place] [id number]) [phone] Director: Robert Ybarra MD Hematocrit (Bld) [Volume fraction] 30.7 % Low 36.0-46.0 [facility] Comment on above: Performed By: #### 1 , 019908, 049905, 9347366 ####[facility] [address] [place], [place] [address]) [phone] Director: Robert Ybarra MD Hemoglobin (Bld) [Mass/Vol] 10.4 g/dL Low 12.0-16.0 [facility] Comment on above: Performed By: #### 1 , 779332, 846039, 8993379 ####[facility] [address] [place], [place] [id number]) [phone] Director: Robert Ybarra MD Instr WBC 10.1 Normal [facility] Comment on above: Performed By: #### 1 , 851491, 155369, 1059949 ####[facility] [address] [place], [place] [address]) [phone] Director: Robert Ybarra MD MCH (RBC) [Entitic mass] 30.2 pg Normal 27.0-34.0 [facility] Comment on above: Performed By: #### 1 , 599994, 049932, 9215175 ####[facility] [address] [place], [place] [address]) [phone] Director: Robert Ybarra MD MCHC (RBC) [Mass/Vol] 33.9 g/dL Normal 32.0-37.0 [facility] Comment on above: Performed By: #### 1 , 715766, 901307, 3967291 ####[facility] [address] [place] [address] Medical Director: Robert Ybarra MD MCV (RBC) [Entitic vol] 89.3 fL Normal 80.0-100.0 [facility] Comment on above: Performed By: #### 1 27473, 969475, 200843, 6040463 ####[facility] [address] [place] [address] Medical Director: Robert Ybarra MD Nucleated RBC 0 /100WBC Normal [facility] Comment on above: Performed By: #### 1 14478, 626164, 714833, 6066067 ####[facility] [address] [place] [address] Medical Director: Robert Ybarra MD Platelet 310 x1000 Normal 150-450 [facility] Comment on above: Performed By: #### 1 09256, 214794, 319670, 6874311 ####[facility] [address] [place] [address] Medical Director: Robert Ybarra MD Platelet mean volume (Bld) [Entitic vol] 7.2 fL Low 7.4-10.4 [facility] Comment on above: Performed By: #### 1 74374, 971138, 139758, 9024602 ####[facility] [address] [place] [address] Medical Director: Robert Ybarra MD RBC 3.44 x10 Low 4.20-5.40 [facility] Comment on above: Result Comment: Note : RBC morphology is normal unless otherwise stated. Evaluation performed only if differential is requested. Performed By: #### 1 46518, 629663, 135438, [id number] ####[facility] [address] [place] [address] Medical Director: Robert Ybarra MD WBC 10.1 x10 Normal 4.5-11.0 [facility] Comment on above: Performed By: #### 1 57569, 479090, 374051, 7962372 ####[facility] [address] [place] [address] Medical Director: Robert Ybarra MD HGB A1Con 12-04-2021 HbA1c (Bld) [Mass fraction] 6.7 % Normal [facility] Comment on above: Result Comment: Refe rence Range: Diabetic Greater than or equal to 6.5 % Prediabetic 5.7?6.4 % Normal Less than 5.7 % Performed By: #### 1 70295 ####[facility] [address] [place] [address] Medical Director: Robert Ybarra MD IRON GROUPon 12-04-2021 Iron [Mass/Vol] 36 ug/dL Low 40-170 [facility] Comment on above: Result Comment: Resu lts may be inaccurate if performed within 14 days of IV iron dextran administration. Performed By: #### 1 68921, 759783, 360389, 7145531 ####[facility] [address] [place] [address] Medical Director: Robert Ybarra MD Saturation 9.8 % Low 20.0-50.0 [facility] Comment on above: Performed By: #### 1 25762, 480548, 732699, 1017002 ####[facility] [address] [place] [address] Medical Director: Robert Ybarra MD TIBC 367 ug/dl Normal 250-450 [facility] Comment on above: Result Comment: Resu lts may be inaccurate if performed within 14 days of IV iron dextran administration. Performed By: #### 1 57675, 613631, 062201, 0575900 ####[facility] [address] [place] [address] Medical Director: Robert Ybarra MD MG LEVELon 01-21-2022 Magnesium [Mass/Vol] 1.6 mg/dL Normal 1.6-2.6 [facility] Comment on above: Performed By: #### C D:[id number], 7868393, 745409, 645365, 507076, 486020 #### [facility] [address] [id number] Hall Manager: Robert Ybarra MD Nursing Clinical Noteon [...] at all times. Hourly rounding completed. Normal [facility] Nursing Clinical Note got report from ED [...] 37.5, bear hugger is still on. Normal [facility] POC Glucoseon 12-04-2021 Glucose [Mass/Vol] 152 mg/dL High 72-100 [facility] Comment on above: Performed By: #### C D:[id number], 8115959, 971391, 409138, 369101, 279049 #### [facility] [address] [place] [address] Hall Manager: Robert Ybarra MD Glucose [Mass/Vol] 177 mg/dL High 72-100 [facility] Comment on above: Performed By: #### C D:[id number], 8589419, 169200, 255159, 995171, 031862 #### [facility] [address] [place] [address] Hall Manager: Robert Ybarra MD Progress Note-Physicianon Progress [...] BMP in 24 hrs. Gertrudis Beckford DO Production Specialist Normal [facility] Progress Note-Physician Patient: YUSUF MEDINA Age: 85 years Sex: Female : 1935 Associated Diagnoses: Abrasion of right elbow; acute Hypothermia; Contusion of right thigh; Fall; Hypothermia due to exposure; Chronic kidney disease (CKD), stage III (moderate); Diabetes mellitus type II, controlled Author: NIGHAT EPNNY MD Subjective The patient reports he feels back to normal and wants to go home. She does not consent to short-term residential facility placement. The family will be available to stay with her until she completely recovered with son arriving from [place] this afternoon. Objective Vital Signs (last 24 [...] Plan Diagnosis Abrasion of right elbow - [id number] S50.311A, Emergency medicine, Medical. Acute Hypothermia - [id number] T68.XXXA, Emergency medicine, Medical. Contusion of right thigh - YDT37-NX S70.11XA, Emergency medicine, Medical. Fall - PNED [id number], Medical. Hypothermia due to exposure - PNED [id number], Medical. She has recovered from hypothermic episode and is now at normal baseline mental status and does not consent to residential facility placement. She will be discharged to home with home health care and family will monitor condition and safety.. Diagnosis Chronic kidney disease (CKD), stage III (moderate) - SZT23-WN N18.30, Medical. The patient's creatinine level is at their normal baseline. There is no significant changes in the patient's GFR. The patient's present medications will be continued. The patient's renal function will be monitored.. Diagnosis Diabetes mellitus type II, controlled - VQC35-MK E11.9, Medical. The patient's blood sugars are adequately controlled. The present medications will be continued, with glucometer checks before meals and at bedtime and sliding scale coverage.. Education and Follow-up: Discharge Planning: Plan to discharge ( To home, Total time that I spent on this patient's discharge is greater than 30 minutes; 32minutes total. ). [facility] T4on 12-04-2021 T4 [Mass/Vol] 9.9 ug/dL Normal 4.5-10.9 [facility] Comment on above: Result Comment: Shireen puncture should occur prior to sulfasalazine administration due to the potential for falsely elevated results. Baseline assay values before administration of sulfasalazine and sulfapyridine therapy would not be affected. Performed By: #### C D:[id number], 1818338, 544025, 212768, 728521, 080706 #### [facility] [address] [place], [place] [address] Hall Manager: Robert Ybarra MD TROPONIN HS 2HRon 12-04-2021 Delta Troponin 2 Hr 39 pg/mL High 0-14 [facility] Comment on above: Result Comment: The term acute myocardial infarction should be used when there is acute myocardial injury with clinical evidence of acute myocardial ischemia and the rise or fall of serial Troponin HS values (delta troponin) greater than or equal to 15 pg/mL with at least one Troponin HS value above the 99th percentile reference range Performed By: #### C D:[id number] #### [facility] [address] [place], [place] [address] Hall Manager: Robert Ybarra MD Troponin HS 2 Hr 105 pg/mL [facility] 3-54 [facility] Comment on above: Performed By: #### C D:[id number] #### [facility] [address] [place], [place] [address] Hall Manager: Robert Ybarra MD TROPONIN HS 6HRon 12-04-2021 Delta Troponin 6 Hr 232 pg/mL [facility] 0-14 [facility] Comment on above: Result Comment: The term acute myocardial infarction should be used when there is acute myocardial injury with clinical evidence of acute myocardial ischemia and the rise or fall of serial Troponin HS values (delta troponin) greater than or equal to 15 pg/mL with at least one Troponin HS value above the 99th percentile reference range Performed By: #### C D:[id number], 9446627, 342581, 648081, 250503, 439592 #### [facility] [address] [place] [address] Hall Manager: Robert Ybarra MD Troponin HS 6 Hr 337 pg/mL Critically abnormal 3-54 [facility] Comment on above: Result Comment: Crit ical Result(s) called at: 04:06:04 on 12/04/2021 by: Byron downsed, RBR to: SF Performed By: #### C D:[id number], 7710333, 944427, 516897, 712508, 485596 #### [facility] [address] [place] [address] Hall Manager: Robert Ybarra MD TSHon 12-04-2021 TSH Qn 0.53 m[IU]/L Normal 0.36-3.74 [facility] Comment on above: Result Comment: High levels of serum biotin may interfere with this test. Performed By: #### C D:[id number], 8065316, 959768, 816406, 176559, 334825 #### [facility] [address] [place] [address] Hall Manager: Robert Ybarra MD U DOA WITH FENTANYLon 2021 Amphetamines, U Negative Normal [facility] Comment on above: Result Comment: Urin e [...] non-medical purposes. Urine for Drugs of Abuse [place] Levels: Barbiturate 200 ng/ml PCP 25 ng/ml Cocaine 300 ng/ml Opiates 2000 ng/ml Amphetamines 1000 ng/ml Benzodiazepines 200 ng/ml THC 50 ng/ml EXTC 500 ng/ml Performed By: #### C D:[id number] ####[facility] [address] [place], [place] [address]) [phone] Director: Robert Ybarra MD Barbituates, [facility] Comment on above: Performed By: #### C D:[id number] ####[facility] [address] [place], [place] [address]) [phone] Director: Robert Ybarra MD Benzodiazepines, Negative [facility] Comment on above: Performed By: #### C D:[id number] ####[facility] [address] [place], [place] [address]) [phone] Director: Robert Ybarra MD Cocaine, [facility] Comment on above: Performed By: #### C D:[id number] ####[address] [address]) [phone] Director: Robert Ybarra MD Ecstasy, [facility] Comment on above: Performed By: #### C D:[id number] ####[address] [address]000440) [phone] hospital Director: Robert Ybarra MD Fentanyl, [facility] Comment on above: Result Comment: Brandonin rosanna [...] be used for non-medical purposes. Urine Fentanyl [place] Level: 1 ng/ml Performed By: #### C D:[id number] ####[address] [place] [address] Medical Director: Robert Ybarra MD Opiates, [facility] Comment on above: Performed By: #### C D:[id number] ####[facility] [address] [place], [place] [address]) [phone] Director: Robert Ybarra MD PCP, U Negative Normal [facility] Comment on above: Performed By: #### C D:[id number] ####[facility] [address] [place], [place] [address]) [phone] Director: Robert Ybarra MD THC, U Negative Normal [facility] Comment on above: Performed By: #### C D:[id number] ####[facility] [address] [place], [place] [address]) [phone] Director: Robert Ybarra MD [facility] 12-04-2021 Appearance, U Hazy Normal [facility] Comment on above: Performed By: #### C D:[id number], 6985539, 866331, 296716, 142947, 169895 #### [facility] [address] [place] [address] Hall Manager: Robert Ybarra MD Bacteria, U Occasional Normal [facility] Comment on above: Performed By: #### C D:[id number], 5152457, 128087, 574716, 892517, 839993 #### [facility] [address] [place] [address] Hall Manager: Robert Ybarra MD Bilirubin, U Negative Normal Negative [facility] Comment on above: Performed By: #### C D:[id number], 5834484, 349939, 642259, 343801, 924712 #### [facility] [address] [place] [address] Hall Manager: Robert Ybarra MD Blood, U Large Abnormal Negative [facility] Comment on above: Performed By: #### C D:[id number], 7721471, 251867, 032174, 206813, 167024 #### [facility] [address] [place] [address] Hall Manager: Robert Ybarra MD Color, U Yellow Normal [facility] Comment on above: Performed By: #### C D:[id number], 2072049, 290201, 296305, 046445, 439879 #### [facility] [address] [place] [address] Hall Manager: Robetr Ybarra MD Glucose Qual, U 150 mg/dl Abnormal Negative [facility] Comment on above: Performed By: #### C D:[id number], 6485649, 909547, 536035, 026793, 325557 #### [facility] [address] [place] [address] Hall Manager: Robert Ybarra MD Ketones, U Trace Abnormal Negative [facility] Comment on above: Performed By: #### C D:[id number], 3453842, 393577, 799512, 019023, 803974 #### [facility] [address] [place] [address] Hall Manager: Robert Ybarra MD Leukocyte Esterase, U Negative Normal Negative [facility] Comment on above: Performed By: #### C D:[id number], 0023578, 085459, 014678, 970651, 978640 #### [facility] [address] [place] [address] Hall Manager: Robert Ybarra MD Mucous, U Occasional Normal [facility] Comment on above: Performed By: #### C D:[id number], 0294531, 472449, 464654, 783736, 367606 #### [facility] [address] [place] [address] Hall Manager: Robert Ybarra MD Nitrite, U Negative Normal Negative [facility] Comment on above: Performed By: #### C D:[id number], 2482082, 190297, 070540, 002028, 594951 #### [facility] [address] [place] [address] Hall Manager: Robert Ybarra MD pH, U 5.0 Normal 4.5-8.0 [facility] Comment on above: Performed By: #### C D:512962792, 3039264, 522310, 027756, 674747, 206760 #### [facility] [address] [place] [address] Hall Manager: Robert Ybarra MD Protein, U Negative Normal Negative [facility] Comment on above: Performed By: #### C D:[id number], 2679936, 485809, 997224, 564614, 619041 #### [facility] [address] [place] [address] Hall Manager: Robert Ybarra MD RBC/HPF, U 2 #/HPF Normal 0-3 [facility] Comment on above: Performed By: #### C D:[id number], 5660453, 096677, 761087, 785644, 999239 #### [facility] [address] [place] [address] Hall Manager: Robert Ybarra MD Specific [place], U 1.009 Normal 1.001-1.035 [facility] Comment on above: Performed By: #### C D:[id number], 3390410, 343082, 308666, 520255, 166676 #### [facility] [address] [place] [address] Hall Manager: Robert Ybarra MD Squamous Epithelial Cells, U 1 #/HPF Normal [facility] Comment on above: Performed By: #### C D:[id number], 5123232, 037017, 431718, 523658, 932204 #### [facility] [address] [place] [address] Hall Manager: Robert Ybarra MD U MICRO Indicated Normal [facility] Comment on above: Performed By: #### C D:637471831, 5112177, 257890, 546729, 573611, 553531 #### [facility] [address] [place] [phone] Hall Manager: Robert Ybarra MD Urobilinogen Qual, U <2.0 mg/dl Normal <2.0 mg/dl [facility] Comment on above: Result Comment: EU/d l and mg/dl are equivalent units. Performed By: #### C D:[id number], 3723389, 067971, 052885, 086306, 197215 #### [facility] [address] [place] [phone] Hall Manager: Robert Ybarra MD WBC/HPF, U 2 #/HPF Normal 0-5 [facility] Comment on above: Performed By: #### C D:[id number], 0641291, 630835, 533447, 716610, 724136 #### [facility] [address] [place] [phone] Hall Manager: Robert Ybarra MD VIT D 25 LEVELon 12-04-2021 Vit D 25 16 ng/mL Normal [facility] Comment on above: Result Comment: Less than 20 ng/ml Deficient 20-30 ng/ml Insufficient 30-100 ng/ml Sufficient Greater than 100 ng/ml Potential toxicity Patients who have recently undergone fluorescein dye angiography in the past 48 to 72 hours (or longer if renal insufficient) may have falsely elevated results. Performed By: #### 9 [id number] ####[facility] [address] [place], [place] [address] Medical Director: Robert Ybarra MD XR ELBOW [...] by: Silvia Hill DO 12/03/2021 10:59 PM TELEVISION MAINTENANCE MAN Technologist: JUAN PABLO PHILIPPE Dictated By: SILVIA HILL DO Signed By: SILVIA HILL DO Signed Out: 12/03/21 23:59:23 Normal [facility] ALCOHOL SERUMon 12-03-2021 Alcohol, Serum <3 Normal [facility] Comment on above: Result Comment: Note : Alcohol values performed at [facility] are performed on Serum and reported in mg/dl, which is different then the state reporting units of g/dl which is performed on whole blood. Result reporting units are based on test methodology and are not interchangable. Performed By: #### C D:[id number], 5576590, 394001, 065329, 979370, 359244 #### [facility] [address] [place], [place] [address] Hall Manager: Robert Ybarra MD APTTon 12-03-2021 aPTT Coag (Bld) [Time] 30.4 s Normal 26.0-39.0 So [facility] Comment on above: Performed By: #### C D:[id number], 1636091, 259650, 953360, 519392, 227196 #### [facility] [address] [place], [place] [address] Hall Manager: Robert Ybarra MD AUTO DIFFon 12-03-2021 Baso Count 0.09 x1000 Normal 0.00-0.20 [facility] Comment on above: Performed By: #### C D:276237760, 5512578, 066391, 386144, 600940, 100144 #### [facility] [address] [place], [place] [address] Hall Manager: Robert Ybarra MD Basos % 0.4 % Normal [facility] Comment on above: Performed By: #### C D:[id number], 4864236, 572491, 457840, 402530, 928615 #### [facility] [address] [place] [address] Hall Manager: Robert Ybarra MD Eos Count 0.21 x1000 Normal 0.00-0.50 [facility] Comment on above: Performed By: #### C D:[id number], 8229551, 127936, 892921, 044429, 261224 #### [facility] [address] [place] [address] Hall Manager: Robert Ybarra MD Eosinophils/100 WBC (Bld) 0.9 % Normal [facility] Comment on above: Performed By: #### C D:[id number], 5125731, 611572, 070488, 424196, 799497 #### [facility] [address] [place] [address] Hall Manager: Robert Ybarra MD Lymph Count 5.46 x1000 High 1.20-4.80 [facility] Comment on above: Performed By: #### C D:525252442, 5345175, 707893, 118373, 511355, 282265 #### [facility] [address] [place] [address] Hall Manager: Robert Ybarra MD Lymphocytes/100 WBC (Bld) 24.2 % Normal [facility] Comment on above: Performed By: #### C D:[id number], 7818881, 978810, 947683, 237200, 557171 #### [facility] [address] [place] [address] Hall Manager: Robert Ybarra MD [place] Count 0.84 x1000 Normal 0.10-1.00 [facility] Comment on above: Performed By: #### C D:[id number], 4882994, 651619, 535005, 501247, 347410 #### [facility] [address] [place] [address] Hall Manager: Robert Ybarra MD Monocytes/100 WBC (Bld) 3.7 % Normal [facility] Comment on above: Performed By: #### C D:[id number], 1199176, 286812, 438022, 071268, 061582 #### [facility] [address] [place] [address] Hall Manager: Robert Ybarra MD Neutrophil Count (ANC) 15.99 x1000 High 1.40-8.80 [facility] Comment on above: Performed By: #### C D:429042853, 1318697, 069644, 621401, 425244, 522010 #### [facility] [address] [place] [address] Hall Manager: Robert Ybarra MD Neutrophils/100 WBC (Bld) 70.8 % Normal [facility] Comment on above: Performed By: #### C D:[id number], 3248580, 040538, 236470, 069985, 665671 #### [facility] [address] [place] [address] Hall Manager: Robert Ybarra MD Scan Differential Diff Scd Normal [facility] Comment on above: Result Comment: Slid e reviewed by technologist. Performed By: #### C D:[id number], 3703503, 063937, 435738, 579989, 200388 #### [facility] [address] [place] [address] Hall Manager: Robert Ybarra MD BLD GASon 12-03-2021 MAGGIE TEST Normal [facility] Comment on above: Performed By: #### C D:[id number], 6904312, 083874, 588480, 989658, 987394 #### [facility] [address] [place] [address] Hall Manager: Robert Ybarra MD Base Excess -11.8 mmol/L [facility] Comment on above: Performed By: #### C D:[id number], 8023772, 522358, 256999, 027896, 561745 #### [facility] [address] [place] [address] Hall Manager: Robert Ybarra MD [facility] [address] Comment on above: Performed By: #### C D:[id number], 3835399, 007260, 857276, 668372, 797960 #### [facility] [address] [place] [address] Hall Manager: Robert Ybarra MD FIO2 100 % [facility] Comment on above: Performed By: #### C D:073959382, 5833616, 311170, 817696, 045690, 770849 #### [facility] [address] [place] [address] Hall Manager: Robert Ybarra MD HCO3 (Bld) [Moles/Vol] 15.5 mmol/L Low 22.0-26.0 S [facility] Comment on above: Performed By: #### C D:[id number], 8110085, 250718, 681489, 846736, 899683 #### [facility] [address] [place] [address] Hall Manager: Robert Ybarra MD [facility] 0 [facility] Comment on above: Performed By: #### C D:[id number], 8207655, 159067, 940392, 582196, 362401 #### [facility] [address] [place] [address] Hall Manager: Robert Ybarra MD O2 L/M 15.0 [facility] Comment on above: Performed By: #### C D:[id number], 8914202, 217222, 813610, 155568, 084153 #### [facility] [address] [place] [address] Hall Manager: Robert Ybarra MD Oxygen (Bld) [Partial pressure] 64.6 mm[Hg] Low 80.0-100.0 [facility] Comment on above: Performed By: #### C D:132572902, 2826709, 355764, 107234, 264691, 881009 #### [facility] [address] [place] [address] Hall Manager: Robert Ybarra MD Oxygen saturation in Blood 86.6 % Normal [facility] Comment on above: Performed By: #### C D:[id number], 9221359, 421218, 399063, 302805, 498504 #### [facility] [address] [place] [address] Hall Manager: Robert Ybarra MD PCO2 41.0 mmHg Normal 35.0-45.0 [facility] Comment on above: Performed By: #### C D:[id number], 2632269, 970299, 251386, 680872, 251178 #### [facility] [address] [place] [address] Hall Manager: Robert Ybarra MD PEEP 0.0 cmH20 Normal [facility] Comment on above: Performed By: #### C D:[id number], [id number], 885103, 308018, 631158, 447477 #### [facility] Services [address] [place] [address] Hall Manager: Robert Ybarra MD pH (Bld) 7.196 [pH] Critically abnormal 7.350-7.450 [facility] Comment on above: Result Comment: RESU LTS CALLED WITH READBACK TO DR. SABRINA MOHAN 12/03/2021 21:02:41 EST. Performed By: #### C D:[id number], 9357345, 968315, 907674, 683255, 245653 #### [facility] Services [address] [place] [address] Hall Manager: Robert Ybarra MD PO2/FiO2 Ratio 65 Low 300-500 [facility] Comment on above: Performed By: #### C D:[id number], 5399096, 250950, 425630, 654522, 827397 #### [facility] Laboratory Services [address] [place] [address] Hall Manager: Robert Ybarra MD Pressure Support. 0 cmH20 [facility] Comment on above: Performed By: #### C D:[id number], 9836039, 254418, 012441, 402134, 398695 #### [facility] Laboratory Services [address] [place] [address] Hall Manager: Robert Ybarra MD RATE 0 bpm [facility] Comment on above: Performed By: #### C D:[id number], 9516377, 317602, 365190, 007168, 931972 #### [facility] Services [address] [place] [address] Hall Manager: Robert Ybarra MD TEMP 37.0 degC Normal <=37.0 [facility] Comment on above: Performed By: #### C D:[id number], 7478837, 318160, 430251, 712294, 301085 #### [facility] Laboratory Services [address] [place] [address] Hall Manager: Robert Ybarra MD Type of Specimen Venous Normal [facility] Comment on above: Result Comment: RR A RT = Right Artery RB ART = Right Brachial Artery LR ART = Left Radial Artery LB ART = Left Brachial Artery RF ART = Right Femoral Artery LF ART = Left Femoral Artery Performed By: #### C D:[id number], 7034583, 897324, 845624, 087055, 183230 #### [facility] Laboratory Services [address] [place] [address] Hall Manager: Robert Ybarra MD Ventilation Mask [facility] Comment on above: Performed By: #### C D:[id number], 1747423, 734694, 253037, 567855, 010314 #### [facility] Services [address] [place] [address] Hall Manager: Robert Ybarra MD VT 00 mL [facility] Comment on above: Performed By: #### C D:[id number], 2084861, 291882, 845712, 028020, 337935 #### [facility] Services [address] [place] [address] Hall Manager: Robert Ybarra MD COMPMETAon 12-03-2021 Albumin/Globulin [Mass ratio] 1.3 {ratio} [facility] Comment on above: Performed By: #### C D:[id number], 9278578, 394416, 013072, 855188, 178140 #### [facility] Laboratory Services [address] [place] [address] Hall Manager: Robert Ybarra MD GFR AA 36 [facility] Comment on above: Result Comment: Afri can Taiwanese GFR Calc Medical judgement is necessary to [...] for drug dosing. Performed By: #### C D:[id number], 9240757, 511286, 525918, 777454, 040881 #### [facility] Services [address] [place] [address] Hall Manager: Robert Ybarra MD Glomerular Filtration Rate 30 mL/min/1.73m? [facility] Comment on above: Result Comment: [...] for drug dosing. Performed By: #### C D:[id number], 7300220, 877282, 903308, 445804, 907762 #### [facility] Services [address] [place] [address] Hall Manager: Robert Ybarra MD Osmolality [Osmolality] 297 mosm/kg High 275-295 [facility] Comment on above: Performed By: #### C D:[id number], 7855075, 528910, 387618, 910587, 356020 #### [facility] Services [address] [place] [address] Hall Manager: Robert Ybarra MD Urea nitrogen/Creatinine [Mass ratio] 27.3 mg/mg Normal [facility] Comment on above: Performed By: #### C D:[id number], 4803992, 139222, 102015, 789929, 839630 #### [facility] Services [address] [place] [address] Hall Manager: Robert Ybarra MD Albumin [Mass/Vol] 3.2 g/dL Low 3.4-5.0 [facility] Comment on above: Performed By: #### C D:[id number], 6710843, 360347, 533404, 681825, 558086 #### [facility] Services [address] [place] [address] Hall Manager: Robert Ybarra MD Alk Phos 60 unit/L Normal 45-117 [facility] Comment on above: Performed By: #### C D:[id number], 2396327, 825014, 306420, 722376, 858145 #### [facility] Services [address] [place] [address] Hall Manager: Robert Ybarra MD Bilirubin [Mass/Vol] 0.26 mg/dL Normal 0.20-1.00 [facility] Comment on above: Result Comment: Use of this assay is not recommended for patients undergoing treatment with eltrombopag due to the potential for falsely elevated results. Performed By: #### C D:[id number], 5773839, 184206, 044892, 060741, 884170 #### [facility] [address] [place] [address] Hall Manager: Robert Ybarra MD Calcium [Mass/Vol] 8.9 mg/dL Normal 8.5-10.5 [facility] Comment on above: Performed By: #### C D:[id number], 1367880, 803993, 813645, 873747, 084233 #### [facility] [address] [place] [address] Hall Manager: Robert Ybarra MD Chloride [Moles/Vol] 105 mmol/L Normal 100-109 [facility] Comment on above: Performed By: #### C D:[id number], 5380598, 445600, 776656, 819346, 365032 #### [facility] [address] [place] [address] Hall Manager: Robert Ybarra MD CO2 [Moles/Vol] 18.9 mmol/L Low 21.0-32.0 [facility] Comment on above: Performed By: #### C D:[id number], 1017579, 735923, 970175, 792327, 203318 #### [facility] [address] [place] [address] Hall Manager: Robert Ybarra MD Creatinine [Mass/Vol] 1.6 mg/dL High 0.6-1.0 [facility] Comment on above: Performed By: #### C D:[id number], 1016222, 716653, 077548, 080041, 583666 #### [facility] [address] [place] [address] Hall Manager: Robert Ybarra MD Globulin (S) [Mass/Vol] 2.4 g/dL Normal S [facility] Comment on above: Performed By: #### C D:[id number], 7002876, 754194, 611373, 679507, 205331 #### [facility] [address] [place] [address] Hall Manager: Robert Ybarra MD Glucose [Mass/Vol] 270 mg/dL High 72-100 [facility] Comment on above: Result Comment: Shireen puncture should occur prior to sulfasalazine administration due to the potential for falsely depressed results. Venipuncture should occur prior to sulfapyridine administration due to the potential falsely elevated results. Baseline assay values before administration of sulfasalazine and sulfapyridine therapy would not be affected. Performed By: #### C D:[id number], 4712806, 124552, 241283, 968439, 032948 #### [facility] [address] [place] [address] Hall Manager: Robert Ybarra MD GOT 61 unit/L High 15-37 [facility] Comment on above: Result Comment: Resu lts may be increased due to hemolysis. Venipuncture should occur prior to sulfasalazine and/or sulfapyridine administration due to the potential for falsely depressed results. Baseline assay values before administration of sulfasalazine and sulfapyridine therapy would not be affected. Performed By: #### C D:[id number], 8543521, 205696, 630999, 017730, 097356 #### [facility] [address] [place] [address] Hall Manager: Robert Ybarra MD GPT 49 unit/L Normal 13-56 [facility] Comment on above: Result Comment: Shireen puncture should occur prior to sulfasalazine and/or sulfapyridine administration due to the potential for falsely depressed results. Baseline assay values before administration of sulfasalazine and sulfapyridine therapy would not be affected. Performed By: #### C D:[id number], 6735816, 663454, 462971, 849250, 931896 #### [facility] Services [address] [place] [address] Hall Manager: Robert Ybarra MD Potassium [Moles/Vol] 5.5 mmol/L High 3.5-5.1 [facility] Comment on above: Result Comment: Resu lts may be increased due to hemolysis. Performed By: #### C D:[id number], 0702607, 410280, 791030, 867248, 201293 #### [facility] [address] [place] [address]388 Hall Manager: Robert Ybarra MD Protein [Mass/Vol] 5.6 g/dL Low 6.0-8.5 [facility] Comment on above: Performed By: #### C D:[id number], 9657325, 846992, 700326, 966754, 534740 #### [facility] [address] [place] [address] Hall Manager: Robert Ybarra MD Sodium [Moles/Vol] 138 mmol/L Normal 135-145 [facility] Comment on above: Performed By: #### C D:130783776, 7101274, 785105, 037660, 856793, 725330 #### [facility] [address] [place] [address] Hall Manager: Robert Ybarra MD Urea nitrogen [Mass/Vol] 45 mg/dL High 10-20 [facility] Comment on above: Performed By: #### C D:[id number], 2117714, 488881, 576596, 521850, 008216 #### [facility] [address] [place] [address] 8[address] Hall Manager: Robert Ybarra MD CT ABD PELVIS [...] by: David Barraza MD 12/03/2021 7:49 PM TELEVISION MAINTENANCE MAN Normal [facility] Comment on above: Order Comment: NO OR [...] by: David Barraza MD 12/03/2021 7:37 PM TELEVISION MAINTENANCE MAN Technologist: KATJA GARVIN ND Dictated By: DAVID BARRAZA MD Signed By: DAVID BARRAZA MD Signed Out: 12/03/21 20:37:46 [address] [facility] [address] CERVICAL SPINE WO CONTRAS Ton 12-03-2021 [...] by: David Barraza MD 12/03/2021 7:40 PM TELEVISION MAINTENANCE MAN Technologist: KATJA GARVIN ND Dictated By: DAVID BARRAZA MD Signed By: DAVID BARRAZA MD Signed Out: 12/03/21 20:40:[address] [facility] [address] CHEST WO CONTRSTon 2021 CT CHEST [...] IMPRESSION: No acute finding Electronically signed by: David Barraza MD 12/03/2021 7:46 PM TELEVISION MAINTENANCE MAN Technologist: KATJA GARVIN ND Dictated By: DAVID BARRAZA MD Signed By: DAVID BARRAZA MD Signed Out: 12/03/21 20:46:42 Normal [facility] ED Pre-Arrival Formon 2021 ED Pre-Arrival Form Pre-Arrival Summary Name: ADRYAN-TRAUMA, Current Date: 12/03/2021 19:55:10 EST Gender: Date of : Age: Pre-Arrival Type: EMS ETA: 12/03/2021 20:08:00 EST Primary Care Physician: Presenting Problem: Pre-Arrival User: Laura Smith RN Referring Source: Location: [address] [place] [address] Emergency Department [address] [place] [id number] Notes: Vital Signs: Doctor Call Back: DNR Status: Miscellaneous Issues: Normal [facility] HEMOon 12-03-2021 DIFF? No Normal [facility] Comment on above: Performed By: #### C D:[id number], 6233850, 954403, 698489, 095077, 082135 #### [facility] [address] [place] [address] 085[address] Hall Manager: Robert Ybarra MD Nucleated RBC 0 /100WBC Normal [facility] Comment on above: Performed By: #### C D:[id number], 4462733, 014004, 234239, 410815, 262038 #### [facility] Services [address] [place] [address] 77677 Hall Manager: Robert Ybarra MD [facility] Actions See Notes Abnormal [facility] Comment on above: Result Comment: Scan Slide. Perform manual diff if needed. Scan Slide. Path Review if Required. SNV Performed By: #### C D:[id number], 1179427, 405712, 366857, 691371, 401380 #### [facility] Services [address] [place], [place] [address] Hall Manager: Robert Ybarra MD Erythrocyte distribution width (RBC) [Ratio] 14.6 % High 11.5-14.5 [facility] Comment on above: Performed By: #### C D:[id number], 3820706, 003723, 460735, 959989, 867596 #### [facility] Services [address] [place], [place] [address] Hall Manager: Robert Ybarra MD Hematocrit (Bld) [Volume fraction] 31.2 % Low 36.0-46.0 [facility] Comment on above: Performed By: #### C D:[id number], 4304467, 405733, 940116, 003312, 615266 #### [facility] Laboratory Services [address] [place] [address] Hall Manager: Robert Ybarra MD Hemoglobin (Bld) [Mass/Vol] 10.1 g/dL Low 12.0-16.0 [facility] Comment on above: Performed By: #### C D:[id number], 3515234, 946889, 662804, 507204, 678118 #### [facility] [address] [place] [address]474 Hall Manager: Robert Ybarra MD Instr WBC 22.6 Normal [facility] Comment on above: Performed By: #### C D:580029754, 3885714, 648602, 972174, 261151, 709287 #### [facility] [address] [place] [address] 7[address]47 Hall Manager: Robert Ybarra MD MCH (RBC) [Entitic mass] 29.6 pg Normal 27.0-34.0 [facility] Comment on above: Performed By: #### C D:[id number], 6943552, 844324, 337272, 098979, 712279 #### [facility] Services [address] [place], [place] [address] Hall Manager: Robert Ybarra MD MCHC (RBC) [Mass/Vol] 32.6 g/dL Normal 32.0-37.0 [facility] Comment on above: Performed By: #### C D:[id number], 8190010, 064986, 858020, 032556, 854605 #### [facility] [address] [place] [address]76 Hall Manager: Robert Ybarra MD MCV (RBC) [Entitic vol] 90.9 fL Normal 80.0-100.0 S [facility] Comment on above: Performed By: #### C D:[id number], 8806704, 791081, 893111, 241878, 158433 #### [facility] [address] [place] [address] 60454 Hall Manager: Robert Ybarra MD MDW 16.08 Normal 13.98-20.00 [facility] Comment on above: Result Comment: MDW Interpretation: [...] risk of Sepsis. Performed By: #### C D:[id number], 0565962, 556499, 859873, 229682, 189348 #### [facility] [address] [place] [address] 06543 Hall Manager: Robert Ybarra MD Platelet 347 x1000 Normal 150-450 [facility] Comment on above: Performed By: #### C D:[id number], 6056557, 651453, 514625, 697578, 905575 #### [facility] [address] [place] [address] 66056 Hall Manager: Robert Ybarra MD Platelet mean volume (Bld) [Entitic vol] 6.7 fL Low 7.4-10.4 [facility] Comment on above: Performed By: #### C D:007032357, 6870453, 709566, 224721, 578177, 279849 #### [facility] [address] [place] [address] 03129 Hall Manager: Robert Ybarra MD RBC 3.43 x10 Low 4.20-5.40 [facility] Comment on above: Result Comment: Note : RBC morphology is normal unless otherwise stated. Evaluation performed only if differential is requested. Performed By: #### C D:[id number], 5906911, 623971, 709139, 827616, 789530 #### [facility] [address] [place] [address] 89699 Hall Manager: Robert Ybarra MD WBC 22.6 x10 High 4.5-11.0 [facility] Comment on above: Performed By: #### C D:[id number], 9593428, 016465, 952456, 091442, 681876 #### [facility] [address] [place] [address] Hall Manager: Robert Ybarra MD I8on 12-03-2021 Anion gap [Moles/Vol] 16 mmol/L Normal 10-20 [facility] Comment on above: Performed By: #### C D:[id number] ####[facility] [address] [place] [address] Medical Director: Robert Ybarra MD Chloride [Moles/Vol] 104 mmol/L Normal 98-109 [facility] Comment on above: Performed By: #### C D:[id number] ####[facility] [address] [place] [address] Medical Director: Robert Ybarra MD CO2 [Moles/Vol] 21 mmol/L Low 24-32 [facility] Comment on above: Performed By: #### C D:[id number] ####[facility] [address] [place] [address] Medical Director: Robert Ybarra MD Creatinine [Mass/Vol] 1.7 mg/dL High 0.6-1.3 [facility] Comment on above: Performed By: #### C D:[id number] ####[facility] [address] [place] [address] Medical Director: Robert Ybarra MD Glucose [Mass/Vol] 268 mg/dL High 72-110 [facility] Comment on above: Performed By: #### C D:[id number] ####[facility] [address] [place], [place] [address]) [phone] Director: Robert Ybarra MD Hct, I-Stat 30 %PCV Low 40-54 [facility] Comment on above: Performed By: #### C D:[id number] ####[facility] [address] [place], [place] [address]) [phone] Director: Robert Ybarra MD Hemoglobin (Bld) [Mass/Vol] 10.2 g/dL Low 14.0-18.0 [facility] Comment on above: Result Comment: The calculation of hemoglobin from hematocrit assumes a normal MCHC. Performed By: #### C D:[id number] ####[facility] [address] [place], [place] [address]) [phone] Director: Robert Ybarra MD Ionized Calcium, I-Stat 1.24 mmol/L Normal 1.12-1.32 [facility] Comment on above: Performed By: #### C D:[id number] ####[facility] [address] [place] [address] Medical Director: Robert Ybarra MD Potassium [Moles/Vol] 5.2 mmol/L High 3.7-5.1 [facility] Comment on above: Performed By: #### C D:[id number] ####[facility] [address] [place] [address] Medical Director: Robert Ybarra MD Sodium [Moles/Vol] 134 mmol/L Low 138-146 [facility] Comment on above: Performed By: #### C D:[id number] ####[facility] [address] [place] [address] Medical Director: Robert Ybarra MD Urea nitrogen [Mass/Vol] 43 mg/dL High 8-26 [facility] Comment on above: Performed By: #### C D:[id number] ####[facility] [address] [place], [place] [address]) [phone] Director: Robert Ybarra MD PT INRon 12-03-2021 INR Coag (PPP) [Relative time] 1.0 {INR} Normal [facility] Comment on above: Result Comment: INR Reference Range: Normal reference range for INR on patients not on anticoagulant therapy: 0.9-1.1 General therapeutic range for patients on anticoagulant therapy: 2.0-3.5 Performed By: #### C D:[id number], 5264030, 001106, 429946, 257201, 696684 #### [facility] [address] [place] [address] Hall Manager: Robert Ybarra MD Protime Patient 11.7 seconds Normal 9.8-13.4 [facility] Comment on above: Performed By: #### C D:[id number], 6805751, 578848, 528231, 490230, 189932 #### [facility] [address] [place] [address] Hall Manager: Robert Ybarra MD TROPONIN HS 0HRon 12-03-2021 Troponin HS 0 Hr 66 pg/mL High 3-54 [facility] Comment on above: Performed By: #### C D:[id number], 0623076, 532656, 099035, 739725, 358225 #### [facility] [address] [place] [address] Hall Manager: Robert Ybarra MD XR CHEST PORTABLEon [...] by: David Barraza MD 12/03/2021 7:26 PM TELEVISION MAINTENANCE MAN Technologist: SR JOSE MARTIN,RL Dictated By: DAVID BARRAZA MD Signed By: DAVID BARRAZA MD Signed Out: 12/03/21 20:26:51 Normal [facility] XR PELVIS APon 12-03-2021 XR PELVIS AP [...] by: David Barraza MD 12/03/2021 7:26 PM TELEVISION MAINTENANCE MAN Technologist: SR JOSE MARTIN,RL Dictated By: DAVID BARRAZA MD Signed By: DAVID BARRAZA MD Signed Out: 12/03/21 20:26:00 Normal [facility] pH Venouson 12-03-2021 pH Venous 7.196 Critically abnormal 7.310-7.410 [facility] Comment on above: Result Comment: RESU LTS CALLED WITH READBACK TO DR. SABRINA MOHAN 12/03/2021 21:04:42 EST. Performed By: #### C D:[id number] ####[facility] [address] [place] [address] Medical Director: Robert Ybarra MD XR Shoulder - left 3 Viewson 07-14-2021 IMPRESSION: 1. Advanced glenoid humeral osteoarthritis and chronic rotator cuff arthropathy with increased glenoid humeral joint space narrowing compared to the prior study. Direct Marketing Representative: PHU Transcribe Date/Time: Jul 14 2021 9:03A [...] upper lung. DIVISION OF RADIOLOGY Provider, Kaly[facility] - 07/14/2021 * * *Final Report* * [...] space narrowing compared to the prior study. Direct Marketing Representative: PSCB Transcribe Date/Time: Jul 14 2021 9:03A Dictated by : MIRNA VIZCAINO MD This examination was interpreted and the report reviewed and electronically signed by: MIRNA VIZCAINO MD on Jul 14 2021 9:05AM [facility] Radiology Study observation (narrative) Mira Miranda XR Shoulder - left 3 ViewsOr dered By: [facility] Provider on 07-14-2021 [facility] Vital Signs Date Time Vital Sign Value Performing Clinician Facility 02-13-2025 13:33-0400 Body temperature 97.7 [degF] Lien Bang DPM Work Phone: [facility] 02-13-2025 13:33-0400 Diastolic blood pressure 68 mm[Hg] Lien Bang DPM Work Phone: [facility] 02-13-2025 13:33-0400 Heart rate 101 /min Lien Bang DPM Work Phone: [facility] 02-13-2025 13:33-0400 Respiratory rate 20 /min Lien Bang DPM Work Phone: [facility] 02-13-2025 13:33-0400 SaO2% (BldA) [Mass fraction] 98 % Lien Bang DPM Work Phone: [facility] 02-13-2025 13:33-0400 Systolic blood pressure 119 mm[Hg] Lien Bang DPM Work Phone: [facility] 01-16-2025 13:41-0500 Body temperature 97.59 [degF] Lien Bang DPM Work Phone: [facility] 01-16-2025 13:41-0500 Diastolic blood pressure 73 mm[Hg] Lien Bang DPM Work Phone: [facility] 01-16-2025 13:41-0500 Heart rate 76 /min Lien Bang DPM Work Phone: [facility] 01-16-2025 13:41-0500 SaO2% (BldA) [Mass fraction] 96 % Lien Bang DPM Work Phone: [facility] 01-16-2025 13:41-0500 Systolic blood pressure 132 mm[Hg] Lien Bang DPM Work Phone: [facility] 01-08-2025 13:32-0500 Body temperature 98.1 [degF] Pierce Chi MD Work Phone: [facility] 01-08-2025 13:32-0500 Diastolic blood pressure 74 mm[Hg] Pierce Chi MD Work Phone: [facility] 01-08-2025 13:32-0500 Heart rate 95 /min Pierce Chi MD Work Phone: [facility] 01-08-2025 13:32-0500 SaO2% (BldA) [Mass fraction] 97 % Pierce Chi MD Work Phone: [facility] 01-08-2025 13:32-0500 Systolic blood pressure 165 mm[Hg] Pierce Chi MD Work Phone: [facility] 01-04-2025 08:05-0500 Body height 152.4 cm Tyesha Singleton MD Work Phone: [facility] 01-04-2025 08:05-0500 Body mass index (BMI) [Ratio] 20.24 kg/m2 Tyesha Singleton MD Work Phone: [facility] [facility] 01-04-2025 08:05-0500 Body weight 47 kg Tyesha Singleton MD Work Phone: [facility] 01-04-2025 08:05-0500 Diastolic blood pressure 59 mm[Hg] Tyesha Singleton MD Work Phone: [facility] Comment on above: per facility paperwork BP is at baseline 01-04-2025 08:05-0500 Heart rate 84 /min Tyehsa Singleton MD Work Phone: [facility] 01-04-2025 08:05-0500 Respiratory rate 16 /min Tyesha Singleton MD Work Phone: [facility] 01-04-2025 08:05-0500 Systolic blood pressure 165 mm[Hg] Tyesha Singleton MD Work Phone: [facility] Comment on above: per facility paperwork BP is at baseline 01-02-2025 08:44-0500 Diastolic blood pressure 72 mm[Hg] Grupo ochoa MD Work Phone: [facility] Comment on above: recheck 01-02-2025 08:44-0500 Systolic blood pressure 152 mm[Hg] Grupo Mendez MD Work Phone: [facility] Comment on above: recheck 01-02-2025 08:41-0500 Body mass index (BMI) [Ratio] 20.24 kg/m2 Grupo Mendez MD Work Phone: [facility] 01-02-2025 08:41-0500 Body temperature 97.9 [degF] Grupo Mendez MD Work Phone: [facility] 01-02-2025 08:41-0500 Body weight 47 kg Grupo Mendez MD Work Phone: [facility] 01-02-2025 08:41-0500 Heart rate 85 /min Grupo Mendez MD Work Phone: [facility] 01-02-2025 08:41-0500 Respiratory rate 18 /min Grupo Mendez MD Work Phone: [facility] 01-02-2025 08:41-0500 SaO2% (BldA) [Mass fraction] 96 % Grupo Mendez MD Work Phone: [facility] 12-26-2024 13:07-0500 Body temperature 97.3 [degF] Lien Bang DPM Work Phone: [facility] 12-26-2024 13:07-0500 Diastolic blood pressure 79 mm[Hg] Lien Bang DPM Work Phone: [facility] 12-26-2024 13:07-0500 Heart rate 96 /min Lien Bang DPM Work Phone: [facility] 12-26-2024 13:07-0500 SaO2% (BldA) [Mass fraction] 95 % Lien Bang DPM Work Phone: [facility] 12-26-2024 13:07-0500 Systolic blood pressure 164 mm[Hg] Lien Bang DPM Work Phone: [facility] 12-02-2024 12:26-0500 SaO2% (BldA) [Mass fraction] 92 % UNKNOWN PROVIDER [facility] Comment on above: Order Comment: Specimen Type: ARTERIAL B LOOD SPECIMENOrdering Facility: [facility] Address: [address] [place] [address] Performed By: #### A SUDHA ####CHERELLE RESPIRATORYCLIA [id number] [id number] [place] [id number] 10-29-2024 16:27-0500 Diastolic blood pressure 72 mm[Hg] Ab Benson MD Work Phone: [facility] Comment on above: trupbp 10-29-2024 16:27-0500 Heart rate 66 /min Ab Benson MD Work Phone: [facility] 10-29-2024 16:27-0500 Systolic blood pressure 159 mm[Hg] Ab Benson MD Work Phone: [facility] Comment on above: trupbp 10-29-2024 16:24-0500 Body mass index (BMI) [Ratio] 20.67 kg/m2 Ab Benson MD Work Phone: [facility] 10-29-2024 16:24-0500 Body temperature 99.3 [degF] Ab Benson MD Work Phone: [facility] 10-29-2024 16:24-0500 Body weight 48 kg Ab Benson MD Work Phone: [facility] 10-29-2024 16:24-0500 SaO2% (BldA) [Mass fraction] 97 % Ab Benson MD Work Phone: [facility] 09-17-2024 15:04-0500 Body mass index (BMI) [Ratio] 22.48 kg/m2 Grupo Mendez MD Work Phone: [facility] 09-17-2024 15:04-0500 Body weight 52.2 kg Grupo Mendez MD Work Phone: [facility] 09-17-2024 15:04-0500 Diastolic blood pressure 88 mm[Hg] Grupo ochoa MD Work Phone: [facility] 09-17-2024 15:04-0500 Heart rate 92 /min Grupo Mendez MD Work Phone: [facility] 09-17-2024 15:04-0500 Respiratory rate 16 /min Grupo Mendez MD Work Phone: [facility] 09-17-2024 15:04-0500 SaO2% (BldA) [Mass fraction] 99 % Grupo Mendez MD Work Phone: [facility] 09-17-2024 15:04-0500 Systolic blood pressure 166 mm[Hg] Grupo Mendez MD Work Phone: [facility] 09-13-2024 10:45-0400 Diastolic blood pressure 60 mm[Hg] Migdalia Archibald Work Phone: [facility] 09-13-2024 10:45-0400 Systolic blood pressure 150 mm[Hg] Migdalia Cramer MD Work Phone: [facility] 09-13-2024 10:20-0400 Body mass index (BMI) [Ratio] 22.09 kg/m2 Migdalia Cramer MD Work Phone: [facility] 09-13-2024 10:20-0400 Body weight 51.3 kg Migdalia Cramer MD Work Phone: [facility] 09-13-2024 10:20-0400 Heart rate 98 /min Migdalia Cramer MD Work Phone: [facility] 08-14-2024 10:36-0400 Body mass index (BMI) [Ratio] 22 kg/m2 Migdalia Cramer MD Work Phone: [facility] 08-14-2024 10:36-0400 Body temperature 97.59 [degF] Migdalia Cramer MD Work Phone: [facility] 08-14-2024 10:36-0400 Body weight 51.1 kg Migdalia Cramer MD Work Phone: [facility] 08-14-2024 10:36-0400 Diastolic blood pressure 68 mm[Hg] Migdalia Archibald Work Phone: [facility] 08-14-2024 10:36-0400 Heart rate 91 /min Migdalia Cramer MD Work Phone: [facility] 08-14-2024 10:36-0400 SaO2% (BldA) [Mass fraction] 96 % Migdalia Cramer MD Work Phone: [facility] 08-14-2024 10:36-0400 Systolic blood pressure 125 mm[Hg] Migdalia Cramer MD Work Phone: [facility] 07-12-2024 09:59-0400 Diastolic blood pressure 70 mm[Hg] Migdalia Archibald Work Phone: [facility] 07-12-2024 09:59-0400 Systolic blood pressure 142 mm[Hg] Migdalia Cramer MD Work Phone: [facility] 07-12-2024 09:31-0400 Body mass index (BMI) [Ratio] 21.23 kg/m2 Migdalia Cramer MD Work Phone: [facility] 07-12-2024 09:31-0400 Body weight 49.3 kg Migdalia Cramer MD Work Phone: [facility] 07-12-2024 09:31-0400 Heart rate 80 /min Migdalia Cramer MD Work Phone: [facility] 04-13-2023 15:23-0400 Body temperature 98.01 [degF] Willie Mitsch DEFENSIVE LINE COACH.CELL ROOM SUPERVISOR Work Phone: [facility] 04-13-2023 15:23-0400 Body weight 54.07 kg Willie Mitsch DEFENSIVE LINE COACH.CELL ROOM SUPERVISOR Work Phone: [facility] 04-13-2023 15:23-0400 Diastolic blood pressure 63 mm[Hg] Willie Mitsch DEFENSIVE LINE COACH.CELL ROOM SUPERVISOR Work Phone: [facility] 04-13-2023 15:23-0400 Heart rate 80 /min Willie Mitsch DEFENSIVE LINE COACH.CELL ROOM SUPERVISOR Work Phone: [facility] 04-13-2023 15:23-0400 Systolic blood pressure 125 mm[Hg] Willie Mitsch DEFENSIVE LINE COACH.CELL ROOM SUPERVISOR Work Phone: [facility] 03-29-2023 15:26-0400 Body weight 53.34 kg Willie Mitsch DEFENSIVE LINE COACH.CELL ROOM SUPERVISOR Work Phone: [facility] 03-29-2023 15:26-0400 Diastolic blood pressure 71 mm[Hg] Willie Mitsch DEFENSIVE LINE COACH.CELL ROOM SUPERVISOR Work Phone: [facility] 03-29-2023 15:26-0400 Heart rate 80 /min Willie Mitsch DEFENSIVE LINE COACH.CELL ROOM SUPERVISOR Work Phone: [facility] 03-29-2023 15:26-0400 Systolic blood pressure 150 mm[Hg] Willie Mitsch DEFENSIVE LINE COACH.CELL ROOM SUPERVISOR Work Phone: [facility] 03-17-2023 14:18-0400 Body weight 54.88 kg Willie Mitsch DEFENSIVE LINE COACH.CELL ROOM SUPERVISOR Work Phone: [facility] 03-17-2023 14:18-0400 Diastolic blood pressure 67 mm[Hg] Willie Mitsch DEFENSIVE LINE COACH.CELL ROOM SUPERVISOR Work Phone: [facility] 03-17-2023 14:18-0400 Heart rate 86 /min Willie Mitsch DEFENSIVE LINE COACH.CELL ROOM SUPERVISOR Work Phone: [facility] 03-17-2023 14:18-0400 Systolic blood pressure 146 mm[Hg] Willie Mitsch DEFENSIVE LINE COACH.CELL ROOM SUPERVISOR Work Phone: [facility] 10-23-2022 08:59-0500 Body weight 55.48 kg Migdalia Cramer MD Work Phone: [facility] 10-23-2022 08:59-0500 Diastolic blood pressure 82 mm[Hg] Migdalia Archibald Work Phone: [facility] 10-23-2022 08:59-0500 Heart rate 87 /min Migdalia Cramer MD Work Phone: [facility] 10-23-2022 08:59-0500 Systolic blood pressure 145 mm[Hg] Migdalia Cramer MD Work Phone: [facility] 05-08-2022 08:07-0400 Diastolic blood pressure 70 mm[Hg] Migdalia Archibald Work Phone: [facility] 05-08-2022 08:07-0400 Heart rate 70 /min Migdalia Cramer MD Work Phone: [facility] 05-08-2022 08:07-0400 Systolic blood pressure 130 mm[Hg] Migdalia Cramer MD Work Phone: [facility] 05-08-2022 08:05-0400 Body weight 53.48 kg Migdalia Cramer MD Work Phone: [facility] 04-03-2022 08:08-0400 Body temperature 98.01 [degF] Migdalia Cramer MD Work Phone: [facility] 04-03-2022 08:08-0400 Body weight 52.34 kg Migdalia Cramer MD Work Phone: [facility] 04-03-2022 08:08-0400 Diastolic blood pressure 68 mm[Hg] Migdalia Archbiald Work Phone: [facility] 04-03-2022 08:08-0400 Heart rate 76 /min Migdalia Cramer MD Work Phone: [facility] 04-03-2022 08:08-0400 Systolic blood pressure 137 mm[Hg] Migdalia Cramer MD Work Phone: [facility] Encounters Encounter Date Encounter Type Care Provider Facility Start: 04-26-2025 ambulatory Mario Coburn ty:[facility] Start: 04-10-2025 ambulatory Mario Coburn ty:[facility] Start: 04-10-2025 Registered Referred Mario Mak MD -[facility] Start: 04-01-2025 End: 04-01-2025 ambulatory Mario Mak MD [facility] Work Phone: Start: 04-01-2025 End: 04-01-2025 Departed Referred Mario Mak MD -[facility] Start: 04-01-2025 End: 04-01-2025 ambulatory Mario RODAS Facility:[facility] Start: 03-12-2025 End: 03-12-2025 Departed Referred Mario Mak MD -[facility] Start: 03-12-2025 Registered Referred [facility] Start: 03-12-2025 End: 03-12-2025 ambulatory Mario RODAS Facility:[facility] Start: 03-04-2025 End: 03-04-2025 ambulatory Mario Mak MD [facility] Work Phone: Start: 03-04-2025 End: 03-04-2025 Departed Referred Mario Mak MD -[facility] Start: 03-04-2025 End: 03-04-2025 ambulatory Mario RODAS Facility:[facility] Start: 02-13-2025 End: 02-13-2025 Patient encounter procedure Lien Bang DPM Work Phone: Plastic Surgery Comment on above: 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) Start: 02-13-2025 End: 02-13-2025 ambulatory LIEN SIDNEY Facility:[facility] Start: 02-11-2025 End: 02-11-2025 Telephone encounter Tyesha Singleton MD Work Phone: Rheumatology Comment on above: Results (Lab results ) Start: 02-04-2025 End: 02-04-2025 ambulatory Mario Mak MD [facility] Work Phone: Start: 02-04-2025 End: 02-04-2025 Departed Referred Mario Mak MD -[facility] Start: 02-04-2025 Registered Referred Mario Mak MD -[facility] Start: 02-04-2025 End: 02-04-2025 ambulatory Mario RODAS Facility:[facility] Start: 01-16-2025 End: 01-18-2025 Refill Willie Kaur APRN.DRAKE Work Phone: Family Medicine Comment on above: Refill Request Start: 01-16-2025 End: 01-16-2025 ambulatory LIEN BANG Facility:[facility] Start: 01-16-2025 End: 01-16-2025 Patient encounter procedure Lien Bang DPM Work Phone: Plastic Surgery Comment on above: Pressure injury of r ight ankle, stage 3 (HCC) (Primary Dx) Start: 01-15-2025 End: 01-15-2025 ambulatory Mario Mak MD [facility] Work Phone: Start: 01-15-2025 End: 01-15-2025 Departed Referred Mario Mak MD -[facility] Start: 01-15-2025 End: 01-15-2025 ambulatory Mario RODAS Facility:[facility] Start: 01-08-2025 End: 01-08-2025 Patient encounter [...] Start: 01-08-2025 End: 01-08-2025 ambulatory UNKNOWN PROVIDER Facility:[facility] Start: 01-07-2025 ambulatory Mario RODAS Facili ty:[facility] Start: 01-07-2025 Registered Referred Mario Mak MD [facility] Start: 01-04-2025 End: 01-04-2025 ambulatory TYESHA SINGLETON Facility:[facility] Start: 01-04-2025 End: 01-04-2025 Office outpatient new 45 minutes Tyesha Singleton MD Work Phone: Rheumatology Comment on above: Pseudogout (Primary Dx); Ankle swelling, right; Medication monitoring encounter Start: 01-03-2025 End: 01-10-2025 Telephone encounter Migdalia Cramer MD Work Phone: [address] [place] [address] Comment on above: Patient Update Start: 01-02-2025 End: 01-02-2025 Telephone encounter Aditi ALLEN Work Phone: Hematology/Oncology Comment on above: Distress Assessment Start: 01-02-2025 End: 01-02-2025 ambulatory GRUPO MENDEZ Facility:[facility] Start: 01-02-2025 End: 01-02-2025 ambulatory Grupo Mendez MD Work Phone: Hematology/Oncology Comment on above: Leukocytosis, unspec ified type (Primary Dx); Normocytic anemia; Vitamin B6 deficiency; Cellulitis of right ankle Start: 01-02-2025 End: 01-02-2025 Patient encounter procedure Grupo Mendez MD Work Phone: Hematology/Oncology Start: 2024 ambulatory Marioscottie Coburn ty:[facility] Start: 2024 Registered Referred Mario Mak MD -[facility] Start: 12-26-2024 End: 12-26-2024 Telephone encounter Migdalia Cramer MD Work Phone: Internal Medicine [place] Comment on above: rehab discharge conc erns Start: 12-26-2024 End: 12-26-2024 Patient encounter procedure Lien Bang DPM Work Phone: Plastic Surgery Comment on above: 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) Start: 12-26-2024 End: 12-26-2024 ambulatory Migdalia Cramer MD Work Phone: Family Medicine Comment on above: Call with Nasreen foster Start: 12-25-2024 End: 12-25-2024 Refill Willie Kaur APRN.CELL ROOM SUPERVISOR Work Phone: Family Medicine [place] Comment on above: Refill Request Start: 12-24-2024 ambulatory Mario Coburn ty:[facility] Start: 12-24-2024 Registered Referred Mario Mak MD -[facility] Start: 12-18-2024 End: 12-18-2024 E-mail encounter from caregiver Willie Kaur APRN.CELL ROOM SUPERVISOR Work Phone: Family Medicine Start: 12-18-2024 End: 12-18-2024 Follow-up encounter Willie Kaur APRN.CNP Work Phone: Family Medicine Comment on above: hospital and residential facility follow up Start: 12-17-2024 ambulatory Marioscottie Coburn ty:[facility] Start: 12-17-2024 Registered Referred Mario Mak MD [facility] Start: 12-12-2024 End: 12-12-2024 Evaluation and management of inpatient DANIEL CASTILLO Facility:[facility] Start: 12-10-2024 End: 12-10-2024 Evaluation and management of inpatient DANIEL NATHO JONATHAN Facility:[facility] Start: 11-29-2024 End: 01-08-2025 Telephone encounter Pierce Chi MD Work Phone: [facility] Comment on above: [employer] (FO R [facility] USE ONLY) Start: 11-28-2024 End: 11-28-2024 ambulatory Pierce Chi MD Work Phone: [facility] Provider Adult Comment on above: [employer] Start Start: 11-26-2024 End: 11-26-2024 Telephone encounter Grupo Mendez MD Work Phone: Hematology/Oncology Comment on above: Appointment Start: 11-23-2024 End: 11-27-2024 Refill Willie Kaur APRN.CNP Work Phone: Family Medicine Comment on above: Refill Request Start: 11-21-2024 End: 12-12-2024 Evaluation and management of inpatient SHAUN SUAREZ Facility:[facility] Start: 11-21-2024 End: 11-22-2024 ambulatory Migdalia Cramer MD Work Phone: Family [facility] Comment on above: MRi and tests Start: 11-19-2024 End: 11-19-2024 ambulatory GRUPO MENDEZ Facility:[facility] Start: 11-19-2024 End: 11-19-2024 ambulatory SIMONE KEVIN Facility:[facility] Start: 11-19-2024 End: 11-19-2024 Subsequent hospital visit by physician Mri [facility] Greta (I-Stat/3t) MRI [facility] Comment on above: Chronic pain of righ t ankle [M25.571, G89.29] Start: 11-06-2024 End: 11-06-2024 ambulatory Grupo Mendez MD Work Phone: Hematology/Oncology Comment on above: [employer] up coming a ppt Start: 11-06-2024 End: 12-11-2024 Telephone encounter Willie Kaur APRN.CELL ROOM SUPERVISOR Work Phone: Family Medicine Comment on above: Appointment (Rheumat ology) Start: 11-05-2024 End: 11-05-2024 Telephone encounter Grupo Mendez MD Work Phone: Hematology/Oncology Comment on above: Results Start: 11-01-2024 End: 11-01-2024 ambulatory MIGDALIA CRAMER Facility:[facility] Start: 11-01-2024 End: 11-01-2024 ambulatory SELF Facility:[facility] Start: 11-01-2024 End: 11-01-2024 Patient encounter procedure Simone Kevin MD Work Phone: Orthopaedic Surgery [facility] Comment on above: Right ankle swelling (Primary Dx); Chronic pain of right ankle Start: 11-01-2024 End: 11-01-2024 Subsequent hospital visit by physician Xr [facility] Greta 1 Xray [facility] Comment on above: Right ankle swelling [M25.471] Start: 10-29-2024 End: 10-29-2024 ambulatory AB BENSON Facility:[facility] Start: 10-29-2024 End: 10-29-2024 Office outpatient visit 15 minutes Ab Benson MD Work Phone: Family Medicine Comment on above: Chronic pain of righ t ankle (Primary Dx) Start: 10-11-2024 End: 10-12-2024 Refill Willie Kaur APRN.CELL ROOM SUPERVISOR Work Phone: Family Medicine Comment on above: Refill Request Start: 09-20-2024 End: 09-20-2024 ambulatory GRUPO OSCAR Facility:[facility] Start: 09-20-2024 End: 09-20-2024 Patient encounter procedure Simone Kevin MD Work Phone: Orthopaedic Surgery [facility] Comment on above: Right ankle swelling ; Closed nondisplaced fracture of right calcaneus, unspecified portion of calcaneus, initial encounter Start: 09-19-2024 End: 09-19-2024 ambulatory MIGDALIA CRAMER Facility:[facility] Start: 09-19-2024 End: 09-19-2024 Subsequent hospital visit by physician Xr [facility] Adryan Work Phone: Radiology Comment on above: Pain in joint involv ing right ankle and foot [M25.571] Start: 09-18-2024 End: 09-18-2024 Telephone encounter Grupo Mendez MD Work Phone: Hematology/Oncology Comment on above: Results (Suspicion f or calcaneal bone fracture ) Start: 09-18-2024 [facility] Start: 09-18-2024 End: 09-18-2024 Subsequent hospital visit by physician [facility] 2 Work Phone: Radiology Comment on above: Right ankle swelling [M25.471] Start: 09-17-2024 End: 09-18-2024 ambulatory GRUPO OSCAR Facility:[facility] Start: 09-17-2024 End: 09-17-2024 Subsequent hospital visit by physician Xr [facility] Adryan Work Phone: Radiology Comment on [...] Start: 09-13-2024 End: 09-13-2024 ambulatory MIGDALIA CRAMER Facility:[facility] Start: 09-13-2024 End: 09-13-2024 Patient encounter procedure [...] ambulatory Migdalia Cramer MD Work Phone: Family [facility] Comment on above: Lab results and next steps Start: 09-04-2024 End: 09-05-2024 E-mail encounter from caregiver Migdalia Cramer MD Work Phone: Family [facility] Start: 08-21-2024 End: 08-24-2024 Refill Migdalia Cramer MD Work Phone: [facility] Comment on above: Refill Request Results Start: 08-14-2024 End: 08-14-2024 ambulatory WILLIE KAUR Facility:[facility] Start: 08-14-2024 End: 08-14-2024 ambulatory MARIUSZ ROMO Facility:[facility] Start: 08-14-2024 End: 08-14-2024 Office outpatient visit 25 minutes Migdalia Cramer MD Work Phone: Family Medicine Comment on above: Generalized weakness (Primary Dx); Headache, unspecified headache type; Leukocytosis, unspecified type; CKD stage 3 due to type 2 diabetes mellitus (HCC); Normocytic anemia; Essential hypertension; Insomnia; Arthralgia, unspecified joint Start: 08-13-2024 End: 08-13-2024 Emergency department patient visit MARIUSZ ROMO Facility:[facility] Start: 08-13-2024 End: 08-13-2024 ambulatory Migdalia Cramer MD Work Phone: [facility] Comment on above: Fatigue Start: 08-09-2024 End: 08-10-2024 Refill Willie Mitsch DEFENSIVE LINE COACH.CELL ROOM SUPERVISOR Work Phone: [facility] Comment on above: Refill Request Start: 07-19-2024 End: 07-19-2024 Refill Migdalia Cramer MD Work Phone: [facility] Comment on above: Refill Request Start: 07-12-2024 End: 07-12-2024 ambulatory MIGDALIA CRAMER Facility:[facility] Start: 07-12-2024 End: 07-12-2024 Office outpatient visit 25 minutes Migdalia Cramer MD Work Phone: [facility] Comment on above: Essential hypertensi on (Primary [...] Start: 07-11-2024 End: 07-11-2024 ambulatory WILLIE MITSCH Facility:[facility] Start: 05-23-2024 Refill Willie Mitsch DEFENSIVE LINE COACH.CELL ROOM SUPERVISOR Work Phone: [facility] Comment on above: Refill Request Start: 04-25-2024 Refill Willie Mitsch DEFENSIVE LINE COACH.CELL ROOM SUPERVISOR Work Phone: [facility] Comment on above: Refill Request Start: 04-16-2024 Telephone encounter Migdalia hidalgo MD Work Phone: [facility] Comment on above: Medication Problem Start: 03-21-2024 End: 03-21-2024 ambulatory GERTRUDIS BLIL Facility:[facility] Start: 03-21-2024 End: 03-21-2024 Patient encounter procedure Gertrudis Bill DO Work Phone: Ophthalmology Comment on above: Type 2 diabetes karen itus without retinopathy (HCC) (Primary Dx); Pseudophakia Start: 03-13-2024 ambulatory Lien Mejia [facility] [place] [facility] Start: 03-13-2024 Patient encounter procedure Lien Mejia MA [facility] [place] Comment on above: Population Health Na vigation Outreach ([facility]/) Start: 02-28-2024 Refill Migdalia gordon MD Work Phone: Family [facility] Start: 02-01-2024 Refill Ok [place] Work Phone: [facility] Comment on above: Refill Request Start: 01-31-2024 Refill Ok [place] Work Phone: [facility] Comment on above: Refill Request Start: 01-23-2024 Refill Migdalia gordon MD Work Phone: [facility] Comment on above: Refill Request Start: 01-11-2024 Refill Migdalia gordon MD Work Phone: [facility] Start: 10-14-2023 Refill Migdalia gordon MD Work Phone: [facility] Comment on above: Refill Request Start: 09-05-2023 Refill Willie Kaur APRN.CNP Work Phone: [facility] Comment on above: Refill Request Start: 08-31-2023 Telephone encounter Migdalia hidalgo MD Work Phone: [facility] [facility] Comment on above: Medication Problem Start: 06-23-2023 Refill Migdalia gordon MD Work Phone: Family [facility] Comment on above: Refill Request Start: 06-02-2023 Refill Migdalia gordon MD Work Phone: Family [facility] Comment on above: Refill Request Start: 05-11-2023 ambulatory Migdalia gordon MD Work Phone: Family Medicine Comment on above: Blood sugar levels Start: 04-28-2023 ambulatory No Pcp Christelle keller [place] Start: 04-19-2023 Telephone encounter Migdalia hidalgo MD Work Phone: Family Medicine Comment on above: Appointment (Re: Up oming appointment) Patient Question (Re : Blood Glucose Monitor) Start: 04-13-2023 End: 04-13-2023 Patient encounter procedure Willie Kaur APRN.CELL ROOM SUPERVISOR Work Phone: Family Medicine Comment on above: Diabetes mellitus, n on-insulin dependent (NIDDM or type II) (HCC) (Primary Dx); CKD stage 3 due to type 2 diabetes mellitus (HCC) Start: 03-29-2023 End: 03-29-2023 Patient encounter procedure Willie Kaur APRN.CELL ROOM SUPERVISOR Work Phone: Family Medicine Comment on above: [...] End: 03-17-2023 Patient encounter procedure Willie Kaur APRN.CELL ROOM SUPERVISOR Work Phone: Family Medicine Comment on above: Pain in both hands ( Primary Dx); Pain in both wrists; Leukocytosis, unspecified type; Type 2 diabetes mellitus with stage 3 chronic kidney disease, without long-term current use of insulin, unspecified whether stage 3a or 3b CKD (HCC); Muscular deconditioning Start: 03-10-2023 Patient Outreach Lien jensen RN Work Phone: Senior [employer] Resources Engineer Management Comment on above: Transition Of Care ( Hospital [place], initial outreach) Start: 02-22-2023 Refill Willie Mitsch DEFENSIVE LINE COACH.CELL ROOM SUPERVISOR Work Phone: Family Medicine [place] Comment on above: Refill Request Start: 01-19-2023 Telephone encounter Migdalia hidalgo MD Work Phone: Family Medicine Comment on above: Refill Request Start: 12-28-2022 Refill Willie Mitsch DEFENSIVE LINE COACH.CELL ROOM SUPERVISOR Work Phone: Family Medicine Comment on above: [...] Refill Migdalia gordon MD Work Phone: Family [facility] Comment on above: Refill Request Start: 08-17-2022 Refill Willie Mitsch DEFENSIVE LINE COACH.CELL ROOM SUPERVISOR Work Phone: Family [facility] Comment on above: Refill Request (SEE RX NOTES) Start: 06-10-2022 Telephone encounter Migdalia hidalgo MD Work Phone: Family Medicine Comment on above: Orders (Cologuard no t completed) Start: 05-28-2022 Telephone encounter Migdalia hidalgo MD Work Phone: Family [facility] Comment on above: Medication Problem ( Glyburide) [...] Start: 04-27-2022 ambulatory Katia Farooq RN IN [facility] Start: 04-27-2022 Follow-up encounter Katia love RN Senior Water Resources Engineer Management Comment on above: Transition Of Care ( TCM follow up) Start: 04-26-2022 Telephone encounter Migdalia hidalgo MD Work Phone: [facility] Comment on above: Patient Question Start: 04-08-2022 Telephone encounter Migdalia hidalgo MD Work Phone: [facility] Comment on above: Lab Orders Start: 04-03-2022 End: 04-03-2022 Patient encounter procedure Migdalia Cramer MD Work Phone: Family [facility] Comment on above: Acute cystitis witho ut [...] ambulatory Migdalia gordon MD Work Phone: Family [facility] Comment on above: Pain; UTI Start: 03-29-2022 Telephone encounter Willie norman APRN.CELL ROOM SUPERVISOR Work Phone: Family Medicine Comment on above: Appointment (please make sure she schedules hospital follow up) Start: 03-23-2022 Refill Migdalia gordon MD Work Phone: Internal Medicine Comment on above: Refill Request Start: 03-19-2022 Refill Willie Kaur APRN.CELL ROOM SUPERVISOR [facility] Comment on above: Refill Request Start: 02-25-2022 Telephone encounter Migdalia hidalgo MD Work Phone: Family [facility] Comment on above: Medication Request Start: 12-25-2021 Refill Migdalia gordon MD Work Phone: [facility] Comment on above: Refill Request Start: 07-14-2021 End: 07-14-2021 Subsequent hospital visit by physician [facility] Work Phone: Radiology Comment on above: Pain [...] Speci men Type: BLOOD SPECIMEN Ordering Facility: [facility] Address: [address] [place] [address] Performed By: #### B [id number] #### [facility] CLIA [id number] [address] [place] [address] [place] #### [id number] #### [facility] CLIA [id number] [address] [place] [address] [place] Start: 2024 Measurement of [...] Author Start: 09-13-2025 Anxiety Screening Anxiety Screening [facility] Start: 09-13-2025 Covid-19 Vaccine ( season) Covid-19 Vaccine ( season) [facility] Comment on above: Postponed from 07/15/2024 (Declined at t his time) Start: 09-13-2025 Depression Screening Depression Screening [facility] Start: 09-13-2025 Diabetic foot examination Diabetic Foot Exam [facility] Start: 09-13-2025 RSV Vaccine (1 - 1-dose 75+ series) RSV Vaccine (1 - 1-dose 75+ series) [facility] Comment on above: Postponed from 2010 (Declined at t his time) Start: 09-13-2025 Shingrix Vaccine (2 of 3) Shingrix Vaccine (2 of 3) [facility] Comment on above: Postponed from 03/19/2015 (Declined at t his time) Start: 09-13-2025 Urine microalbumin profile DTaP,Tdap,Td Vaccine (1 - Tdap) [facility] Comment on above: Postponed from 1954 (Declined at t his time) Start: 08-14-2025 Hepatitis B screening Urine Albumin:Creatinine Ratio [facility] Start: 07-11-2025 Hepatitis B surface antibody level LDL Cholesterol [facility] Start: 07-05-2025 End: 07-05-2025 Patient encounter procedure Rheumatology Comment on above: Return in about 6 months (around 07/04/20 25) for Pseudogout 20m. F/u 6 months Start: 05-13-2025 Influenza vaccination Influenza Vaccine (#1) [facility] Comment on above: Postponed from 07/15/2024 (Declined at t his time) Start: 03-21-2025 Glaucoma screening Dilated Retinal Exam [facility] Start: 03-12-2025 End: 03-12-2025 Patient encounter procedure 03/12/2025 9:00 AM EDT Office Visit Family Medicine [address] [place], [place] [id number] [place] [address] [place], [place] [id number] 6 month follow up Family Medicine Comment on above: 6 month follow up Start: 02-19-2025 Hemoglobin A1c measurement HbA1C [facility] Start: 02-13-2025 End: 05-15-2025 CBC W Auto Differential panel - Blood COMPLETE BLOOD COUNT AND DIFFERENTIAL Lab Routine Normocytic anemia Expected: 02/13/2025, Expires: 05/15/2025 [facility] Work Phone: Comment on above: Expected: 02/13/2025, Expires: Start: 02-13-2025 End: 05-15-2025 Comprehensive metabolic 2000 panel - Serum or Plasma COMPREHENSIVE METABOLIC PANEL Lab Routine Normocytic anemia Expected: 02/13/2025, Expires: 05/15/2025 [facility] Comment on above: Expected: 02/13/2025, Expires: Start: 02-13-2025 End: 05-15-2025 Pyridoxine [Mass/volume] in Serum or Plasma VITAMIN B6/PYRIDOXIN Lab Routine Normocytic anemia Vitamin B6 deficiency Expected: 02/13/2025, Expires: 05/15/2025 [facility] Comment on above: Expected: 02/13/2025, Expires: Start: 02-13-2025 End: 02-13-2025 Patient encounter procedure 02/13/2025 1:30 PM EDT Office Visit Plastic Surgery [address] [place] [address] Lien Bang, ANIRUDH [address] [facility], [address] [place] [address] appt confirmed with Nj at [facility] Right ankle-rescheduled with Malia at [facility] 01-28-2025 10:22am-KT Plastic Surgery Comment on above: appt confirmed with Nj at [facility] darontioan jolo Right ankle-rescheduled with Malia at [facility] 01-28-2025 10:22am-KT Start: 02-11-2025 End: 09-13-2025 Basic metabolic 2000 panel - Serum or Plasma BASIC METABOLIC PANEL Lab Routine Essential hypertension Hypertensive kidney disease with stage 3b chronic kidney disease (HCC) CKD stage 3 due to type 2 diabetes mellitus (HCC) Diabetes mellitus, non-insulin dependent (NIDDM or type II) (HCC) Expected: 02/11/2025, Expires: 09/13/2025 [facility] Work Phone: Comment on above: Expected: 02/11/2025, Expires: Start: 02-11-2025 End: 05-13-2025 CBC panel - Blood by Automated count COMPLETE BLOOD COUNT Lab Routine Iron deficiency anemia, unspecified iron deficiency anemia type Leukocytosis, unspecified type Expected: 02/11/2025, Expires: 05/13/2025 [facility] Comment on above: Expected: 02/11/2025, Expires: Start: 02-11-2025 End: 09-13-2025 Hemoglobin A1c in Blood HEMOGLOBIN A1C Lab Routine Diabetes mellitus, non-insulin dependent (NIDDM or type II) (HCC) Expected: 02/11/2025, Expires: 09/13/2025 [facility] Comment on above: Expected: 02/11/2025, Expires: Start: 02-11-2025 End: 09-13-2025 LIPID PANEL, NONFASTING LIPID PANEL, NONFASTING Lab Routine Hyperlipidemia associated with type 2 diabetes mellitus (HCC) (HCC) Diabetes mellitus, non-insulin dependent (NIDDM or type II) (HCC) Expected: 02/11/2025, Expires: 09/13/2025 [facility] Comment on above: Expected: 02/11/2025, Expires: Start: 01-30-2025 End: 01-30-2025 Patient encounter procedure 01/30/2025 1:30 PM EDT Office Visit Plastic Surgery [address] [place] [address] Lien Bang, ANIRUDH [address], [address] [place] [address] Right ankle Plastic Surgery Comment on above: Right ankle Start: 01-16-2025 End: 01-16-2025 Patient encounter procedure 01/16/2025 1:00 PM EST Office Visit Plastic Surgery [address] [place] [address] Lien Bang, ANIRUDH [address], [address] [place] [address] Right ankle Plastic Surgery Comment on above: Right ankle Start: 01-08-2025 End: 01-08-2025 Patient encounter procedure Plastic Surgery Comment on above: new to us f/u abx from hospital visit mark carranza from [facility] [phone] f/u abx from hospita l visit patient from [facility] [phone] confirmed with Nj at [facility] 01/04/2021 f/u abx from hospital visit patient from [facility] [phone] Start: 01-04-2025 End: 01-04-2025 Patient encounter procedure 01/04/2025 8:00 AM EST Office Visit Rheumatology [address] [place] [address] Tyesha Singleton MD [address] [place], [place] [phone] Inflammatory Arthritis per dr mcghee Rheumatology Comment on above: Inflammatory Arthritis per dr mcghee Start: 01-02-2025 End: 01-02-2025 Follow-up encounter 01/02/2025 8:30 AM EST Visit (SP) Office Hematology/Oncology [address] [place] [address] [place] [address] [place] [address] Follow up Hematology/Oncology Comment on above: Follow up Start: 12-26-2024 End: 12-26-2024 Patient encounter procedure 12/26/2024 1:00 PM EST Office Visit Plastic Surgery [address] [place] [address] Lien Bang DPM [address] [facility], [address] [place] [id number] new to us right ankle -f/u from [...] EST - 11/27/2024 3:53 PM EST Surgery [facility] Surgery [address] [place] [address] Keerthi Plata, ANIRUDH [address] [facility], [address] [address] INCISION AND DRAINAGE ABSCESS EXTREMITY LOWER SIMPLE OR SINGLE [facility] Surgery Comment on above: INCISION AND DRAINAGE [...] 9:10 AM EST Visit (SP) Office Hematology/Oncology [address] [place] [address] [place] [address] [place] [address] folow up Iron Hematology/Oncology Comment on above: folow up Iron Start: 11-21-2024 End: 02-20-2025 CBC W Auto Differential panel - Blood COMPLETE BLOOD COUNT AND DIFFERENTIAL Lab Routine Normocytic anemia Leukocytosis, unspecified type Expected: 11/21/2024, Expires: 02/20/2025 [facility] Work Phone: Comment on above: Expected: 11/21/2024, Expires: Start: 11-21-2024 End: 02-20-2025 Ferritin [Mass/volume] in Serum or Plasma FERRITIN Lab Routine Normocytic anemia Expected: 11/21/2024, Expires: 02/20/2025 [facility] Comment on above: Expected: 11/21/2024, Expires: Start: 11-21-2024 End: 02-20-2025 Iron and Iron binding capacity panel - Serum or Plasma IRON AND TIBC Lab Routine Normocytic anemia Expected: 11/21/2024, Expires: 02/20/2025 [facility] Comment on above: Expected: 11/21/2024, Expires: Start: 11-21-2024 End: 02-20-2025 Zinc [Mass/volume] in Serum or Plasma ZINC BLD Lab Routine Normocytic anemia Expected: 11/21/2024, Expires: 02/20/2025 [facility] Comment on above: Expected: 11/21/2024, Expires: Start: 11-21-2024 End: 11-21-2024 ambulatory 11/21/2024 9:15 AM EST Results Only [facility] [address] [place] [address] lab [facility] Comment on above: lab Start: 11-19-2024 End: 11-19-2024 Patient encounter procedure 11/19/2024 9:30 AM EST Appointment MRI [facility] [address] [place] [address] Chronic pain of right ankle [M25.571, G89.29] MRI [facility] Comment on above: Chronic pain of right ankle [M25.571, G8 9.29] Start: 11-14-2024 Advance Directive Discussion Advance Directive Discussion [facility] Start: 11-14-2024 Hemoglobin A1c measurement HbA1C [facility] Start: 11-01-2024 End: 01-31-2025 C reactive protein [Mass/volume] in Serum or Plasma [facility] Comment on above: Expected: 11/01/2024, Expires: Start: 11-01-2024 End: 01-31-2025 Erythrocyte sedimentation rate [facility] Comment on above: Expected: 11/01/2024, Expires: Start: 10-11-2024 Hemoglobin A1c measurement HbA1C [facility] Start: 09-20-2024 End: 09-20-2024 Patient encounter procedure 09/20/2024 9:10 AM EST Office Visit Orthopaedic Surgery [facility] [address] [place] [address] Simone Kevin MD [address] [place] [address] Right ankle swelling [M25.471]; Closed nondisplaced fracture of right calcaneus, unspecified portion of calcaneus, initial encounter [S92.001A] Orthopaedic Surgery [facility] Comment on above: Right ankle swelling [M25.471]; Closed n ondisplaced fracture of right calcaneus, unspecified portion of calcaneus, initial encounter [S92.001A] Start: 09-18-2024 End: 09-18-2024 Patient encounter procedure 09/18/2024 8:15 AM EST Appointment Radiology [address] [place] [address] Right ankle swelling [M25.471] Radiology Comment on above: Right ankle swelling [M25.471] Start: 09-17-2024 End: 09-17-2024 FQHC visit new patient 09/17/2024 3:10 PM EST Visit (SP) Office Hematology/Oncology [address] [place] [id number] [place] [address] [place] [phone] New patient Hematology/Oncology Comment on above: New patient Start: 09-17-2024 End: 12-17-2024 Pyridoxine [Mass/volume] in Serum or Plasma [facility] Work Phone: Comment on above: Expected: 09/17/2024, Expires: Start: 09-13-2024 End: 09-13-2024 Patient encounter procedure 09/13/2024 10:00 AM EDT Office Visit Family Medicine [id number] [place], [place] [id number] [place] [address] [place] [id number] AWV Due Family Medicine Comment on above: AWV Due Start: 09-11-2024 End: 12-11-2024 Basic metabolic 2000 panel - Serum or Plasma BASIC METABOLIC PANEL Lab Routine CKD stage 3 due to type 2 diabetes mellitus (HCC) Hypertensive kidney disease with stage 3b chronic kidney disease (HCC) Essential hypertension Diabetes mellitus, non-insulin dependent (NIDDM or type II) (HCC) Expected: 09/11/2024, Expires: 12/11/2024 [facility] Work Phone: Comment on above: Expected: 09/11/2024, Expires: Start: 09-11-2024 End: 12-11-2024 CBC panel - Blood by Automated count COMPLETE BLOOD COUNT Lab Routine Iron deficiency anemia, unspecified iron deficiency anemia type Expected: 09/11/2024, Expires: 12/11/2024 [facility] Comment on above: Expected: 09/11/2024, Expires: Start: 09-11-2024 End: 12-11-2024 Hemoglobin A1c in Blood HEMOGLOBIN A1C Lab Routine Diabetes mellitus, non-insulin dependent (NIDDM or type II) (HCC) Expected: 09/11/2024, Expires: 12/11/2024 [facility] Comment on above: Expected: 09/11/2024, Expires: Start: 09-11-2024 End: 12-11-2024 Microalbumin/Creatinine [Mass Ratio] in Urine ALBUMIN/CREATININE RATIO, URINE Lab Routine CKD stage 3 due to type 2 diabetes mellitus (HCC) Essential hypertension Diabetes mellitus, non-insulin dependent (NIDDM or type II) (HCC) Expected: 09/11/2024, Expires: 12/11/2024 [facility] Comment on above: Expected: 09/11/2024, Expires: Start: [...] deficiency anemia type Expected: 09/11/2024, Expires: 12/11/2024 [facility] Comment on above: Expected: 09/11/2024, Expires: 5 Start: 08-14-2024 End: 11-13-2024 Bacteria identified in Urine by Culture [facility] Comment on above: Expected: 08/14/2024, Expires: 4 Start: 08-14-2024 End: 11-13-2024 C reactive protein [Mass/volume] in Serum or Plasma [facility] Comment on above: Expected: 08/14/2024, Expires: 4 Start: 08-14-2024 End: 11-13-2024 CBC W Ordered Manual Differential panel - Blood [facility] Comment on above: Expected: 08/14/2024, Expires: Start: 08-14-2024 End: 11-13-2024 Erythrocyte sedimentation rate [facility] Work Phone: Comment on above: Expected: 08/14/2024, Expires: 4 Start: 08-14-2024 End: 11-13-2024 PROTEIN ELECT RND UR W/[facility] Comment on above: Expected: 08/14/2024, Expires: Start: 08-14-2024 End: 11-13-2024 PROTEIN ELECTROPHORESIS SERUM W/[facility] Comment on above: Expected: 08/14/2024, Expires: 4 Start: 08-14-2024 End: 11-13-2024 URINALYSIS, DIPSTICK ONLY [facility] Comment on above: Expected: 08/14/2024, Expires: 4 Start: 08-14-2024 End: 08-14-2024 Patient encounter procedure 08/14/2024 10:40 AM EDT Office Visit Family Medicine [address] [place] [address] [place] [address] [place] [address] Elevated white count and dehydration/fatigue Family Medicine Comment on above: Elevated white count and dehydration/fat igue Start: 07-15-2024 Covid-19 Vaccine ( season) Covid-19 Vaccine ( season) [facility] Start: 07-15-2024 Covid-19 Vaccine ( season) Covid-19 Vaccine ( season) [facility] Start: 07-15-2024 Influenza vaccination [facility] Start: 07-12-2024 End: 07-12-2024 Patient encounter procedure 07/12/2024 9:40 AM EDT Office Visit Family Medicine [address] [place] [address] [place] [address] [place] [address] Follow Up Family Medicine Comment on above: Follow Up Start: 04-12-2024 End: 04-12-2024 Patient encounter procedure 04/12/2024 11:30 AM EDT Office Visit Rheumatology [address] [place] [address] [phone] [place] [address] [place] [address] HFU pseudogout Rheumatology Comment on above: HFU pseudogout Start: 03-21-2024 End: 03-21-2024 Patient encounter procedure 03/21/2024 10:45 AM EDT Office Visit OPHT Ophthalmology [address] [place] [address] Gertrudis Bill, [address] [place] [address] Dilated Retinal Exam Ophthalmology Comment on above: Dilated Retinal Exam Start: 03-13-2024 End: 09-13-2024 Basic metabolic 2000 panel - Serum or Plasma BASIC METABOLIC PANEL Lab Routine Diabetes mellitus, non-insulin dependent (NIDDM or type II) (HCC) Hyperlipidemia associated with type 2 diabetes mellitus (HCC) (HCC) Essential hypertension Expected: 03/13/2024, Expires: 09/13/2024 [facility] Comment on above: Expected: 03/13/2024, Expires: Start: 03-13-2024 End: 09-13-2024 Hemoglobin A1c in Blood HEMOGLOBIN A1C Lab Routine Diabetes mellitus, non-insulin dependent (NIDDM or type II) (HCC) Expected: 03/13/2024, Expires: 09/13/2024 [facility] Work Phone: Comment on above: Expected: 03/13/2024, Expires: Start: 03-13-2024 End: 09-13-2024 LIPID PANEL, NONFASTING LIPID PANEL, NONFASTING Lab Routine Hyperlipidemia associated with type 2 diabetes mellitus (HCC) (HCC) Expected: 03/13/2024, Expires: 09/13/2024 [facility] Comment on above: Expected: 03/13/2024, Expires: Start: 03-13-2024 End: 09-13-2024 Microalbumin/Creatinine [Mass Ratio] in Urine ALBUMIN/CREATININE RATIO, URINE Lab Routine Diabetes mellitus, non-insulin dependent (NIDDM or type II) (HCC) Expected: 03/13/2024, Expires: 09/13/2024 [facility] Comment on above: Expected: 03/13/2024, Expires: Start: 11-14-2023 Advance Directive Discussion Advance Directive Discussion [facility] Start: 11-14-2023 Behavioral Health Screening Behavioral Health Screening [facility] Start: 11-14-2023 Depression Assessment Depression Assessment [facility] Start: 11-12-2023 Hemoglobin A1c measurement HbA1C [facility] Start: 11-12-2023 Hemoglobin A1c/Hemoglobin.total in Blood HBA1C [facility] Start: 10-23-2023 3 comp foot exam completed DIABETIC FOOT EXAM [facility] Start: 10-23-2023 Diabetic foot examination Diabetic Foot Exam [facility] Start: 10-21-2023 Hepatitis B screening URINE ALBUMIN:CREATININE RATIO [facility] Start: 10-21-2023 Hepatitis B surface antibody level LDL CHOLESTEROL [facility] Start: 09-07-2023 Hemoglobin A1c/Hemoglobin.total in Blood HBA1C [facility] Start: 07-15-2023 Covid-19 Vaccine ( season) Covid-19 Vaccine () [facility] Start: 07-15-2023 Influenza vaccination [facility] Start: 06-17-2023 End: 08-17-2023 Basic metabolic 2000 panel - Serum or Plasma BASIC METABOLIC PNL Lab Routine Type 2 diabetes mellitus with stage 3 chronic kidney disease, without long-term current use of insulin, unspecified whether stage 3a or 3b CKD (HCC) Expected: 06/17/2023 (Approximate), Expires: 08/17/2023 [facility] Work Phone: Comment on above: Expected: 06/17/2023 (Approximate), Expi res: 08/17/2023 Start: 06-17-2023 End: 08-17-2023 Hemoglobin A1c in Blood HGB A1C Lab Routine Type 2 diabetes mellitus with stage 3 chronic kidney disease, without long-term current use of insulin, unspecified whether stage 3a or 3b CKD (HCC) Expected: 06/17/2023 (Approximate), Expires: 08/17/2023 [facility] Work Phone: Comment on above: Expected: 06/17/2023 (Approximate), Expi res: 08/17/2023 Start: 04-29-2023 End: 06-29-2023 Basic metabolic 2000 panel - Serum or Plasma BASIC METABOLIC PNL Lab Routine CKD stage 3 due to type 2 diabetes mellitus (HCC) Diabetes mellitus, non-insulin dependent (NIDDM or type II) (HCC) Expected: 04/29/2023 (Approximate), Expires: 06/29/2023 [facility] Work Phone: Comment on above: Expected: 04/29/2023 (Approximate), Expi res: 06/29/2023 Start: 04-21-2023 Hemoglobin A1c/Hemoglobin.total in Blood HBA1C [facility] Start: 03-23-2023 End: 05-23-2023 Basic metabolic 2000 panel - Serum or Plasma BASIC METABOLIC PNL Lab Routine Diabetes mellitus, non-insulin dependent (NIDDM or type II) (HCC) Expected: 03/23/2023, Expires: 05/23/2023 [facility] Work Phone: Comment on above: Expected: 03/23/2023, Expires: 3 Start: 03-23-2023 End: 05-23-2023 Hemoglobin A1c in Blood HGB A1C Lab Routine Diabetes mellitus, non-insulin dependent (NIDDM or type II) (HCC) Expected: 03/23/2023, Expires: 05/23/2023 [facility] [facility] Work Phone: Comment on above: Expected: 03/23/2023, Expires: 3 Start: 03-23-2023 End: 05-23-2023 SCHEDULE LAB TESTING SCHEDULE LAB TESTING Lab Routine Diabetes mellitus, non-insulin dependent (NIDDM or type II) (HCC) Expected: 03/23/2023, Expires: 05/23/2023 [facility] Work Phone: Comment on above: Expected: 03/23/2023, Expires: 3 Start: 11-14-2022 ADVANCE DIRECTIVE DISCUSSION ADVANCE DIRECTIVE DISCUSSION [facility] Start: 11-14-2022 DEPRESSION ASSESSMENT DEPRESSION ASSESSMENT [facility] Start: 10-27-2022 Hemoglobin A1c/Hemoglobin.total in Blood HBA1C [facility] Start: 10-15-2022 3 comp foot exam completed DIABETIC FOOT EXAM [facility] Start: 10-15-2022 SHINGRIX VACCINE (2 of 3) SHINGRIX VACCINE (2 of 3) [facility] Comment on above: Postponed from 03/19/2015 (Declined at t his time) Start: 10-15-2022 Urine microalbumin profile DTAP,TDAP,TD (1 - Tdap) [facility] Comment on above: Postponed from 1954 (Declined at t his time) Start: 10-12-2022 Hepatitis B screening URINE ALBUMIN:CREATININE RATIO [facility] Start: 10-12-2022 Hepatitis B surface antibody level LDL CHOLESTEROL [facility] Start: 10-08-2022 End: 12-08-2022 ALBUMIN/CREAT RATIO RND UR ALBUMIN/CREAT RATIO RND UR Lab Routine Diabetes mellitus, non-insulin dependent (NIDDM or type II) (HCC) Hypertensive kidney disease with stage 3b chronic kidney disease (HCC) Expected: 10/08/2022, Expires: 12/08/2022 [facility] Work Phone: Comment on above: Expected: 10/08/2022, Expires: 3 Start: 10-08-2022 End: 12-08-2022 Basic metabolic 2000 panel - Serum or Plasma BASIC METABOLIC PNL Lab Routine Diabetes mellitus, non-insulin dependent (NIDDM or type II) (HCC) CKD stage 3 due to type 2 diabetes mellitus (HCC) Essential hypertension Hypertensive kidney disease with stage 3b chronic kidney disease (HCC) Expected: 10/08/2022, Expires: 12/08/2022 [facility] Work Phone: Comment on above: Expected: 10/08/2022, Expires: 3 Start: 10-08-2022 End: 12-08-2022 Hemoglobin A1c in Blood HGB A1C Lab Routine Diabetes mellitus, non-insulin dependent (NIDDM or type II) (HCC) Expected: 10/08/2022, Expires: 12/08/2022 [facility] Work Phone: Comment on above: Expected: 10/08/2022, Expires: 3 Start: 10-08-2022 End: 12-08-2022 LIPID PANEL, NONFASTING LIPID PANEL, NONFASTING Lab Routine Diabetes mellitus, non-insulin dependent (NIDDM or type II) (HCC) Hyperlipidemia associated with type 2 diabetes mellitus (HCC) Expected: 10/08/2022, Expires: 12/08/2022 [facility] Work Phone: Comment on above: Expected: 10/08/2022, Expires: 3 Start: 09-24-2022 Hemoglobin A1c/Hemoglobin.total in Blood HBA1C [facility] Start: 07-26-2022 End: 09-25-2022 CBC panel - Blood by Automated count CBC Lab Routine Iron deficiency anemia, unspecified iron deficiency anemia type CKD stage 3 due to type 2 diabetes mellitus (HCC) Expected: 07/26/2022, Expires: 09/25/2022 [facility] Work Phone: Comment on above: Expected: 07/26/2022, Expires: 2 Start: 07-26-2022 End: 09-25-2022 Ferritin [Mass/volume] in Serum or Plasma FERRITIN BLD Lab Routine Iron deficiency anemia, unspecified iron deficiency anemia type Expected: 07/26/2022, Expires: 09/25/2022 [facility] Work Phone: Comment on above: Expected: 07/26/2022, Expires: 2 Start: 07-26-2022 End: 09-25-2022 Iron and Iron binding capacity panel - Serum or Plasma IRON + TIBC Lab Routine Iron deficiency anemia, unspecified iron deficiency anemia type Expected: 07/26/2022, Expires: 09/25/2022 [facility] Work Phone: Comment on above: Expected: 07/26/2022, Expires: 2 Start: 07-15-2022 Influenza vaccination [facility] Start: 04-26-2022 End: 06-26-2022 CBC panel - Blood by Automated count CBC Lab Routine Iron deficiency anemia, unspecified iron deficiency anemia type Expected: 04/26/2022, Expires: 06/26/2022 [facility] Work Phone: Comment on above: Expected: 04/26/2022, Expires: 2 Start: 04-26-2022 End: 06-26-2022 RETIC COUNT RETIC COUNT Lab Routine Iron deficiency anemia, unspecified iron deficiency anemia type Expected: 04/26/2022, Expires: 06/26/2022 [facility] Work Phone: Comment on above: Expected: 04/26/2022, Expires: 2 Start: 04-12-2022 End: 06-12-2022 Bacteria identified in Urine by Culture URINE CULTURE Microbiology Routine Acute cystitis without hematuria Expected: 04/12/2022, Expires: 06/12/2022 [facility] Work Phone: Comment on above: Expected: 04/12/2022, Expires: 2 Start: 04-12-2022 End: 06-12-2022 URINALYSIS, DIPSTICK ONLY URINALYSIS, DIPSTICK ONLY Lab Routine Acute cystitis without hematuria Expected: 04/12/2022, Expires: 06/12/2022 [facility] Work Phone: Comment on above: Expected: 04/12/2022, Expires: 2 Start: 04-11-2022 Hemoglobin A1c/Hemoglobin.total in Blood HBA1C [facility] Start: 11-14-2021 ADVANCE DIRECTIVE DISCUSSION ADVANCE DIRECTIVE DISCUSSION [facility] Start: 11-14-2021 DEPRESSION ASSESSMENT DEPRESSION ASSESSMENT [facility] Start: 12-07-2018 Glaucoma screening Dilated Retinal Exam [facility] Start: 12-07-2018 Hepatitis C antibody, confirmatory test DILATED RETINAL EXAM [facility] Start: 10-22-2016 PNEUMOCOCCAL: 65+ (2 - PPSV23 or PCV20) PNEUMOCOCCAL: 65+ (2 - PPSV23 or PCV20) [facility] Start: 03-19-2015 SHINGRIX VACCINE (2 of 3) SHINGRIX VACCINE (2 of 3) [facility] Start: 06-14-2013 Colonoscopy COLONOSCOPY [facility] Start: 06-14-2013 Screening for malignant neoplasm of colon Colonoscopy [facility] Start: 06-15-2012 COLORECTAL CANCER SCREENING COLORECTAL CANCER SCREENING [facility] Start: 06-15-2012 Screening for malignant neoplasm of colon Colorectal Cancer Screening [facility] Start: 2010 RSV Vaccine (1 - 1-dose 75+ series) RSV Vaccine (1 - 1-dose 75+ series) [facility] Start: 1995 Hepatitis B Vaccine (1 of 3 - Risk 3-dose series) Hepatitis B Vaccine (1 of 3 - Risk 3-dose series) [facility] Start: 1995 RSV Vaccine (1 - 1-dose 60+ series) RSV Vaccine (1 - 1-dose 60+ series) [facility] Start: 1980 COLOGUARD (FIT-DNA) COLOGUARD (FIT-DNA) [facility] Start: [address] COLONOGRAPHY [facility] Start: 1980 FECAL OCCULT BLOOD FECAL OCCULT BLOOD [facility] Start: 1980 Screening for malignant neoplasm of colon [facility] Start: 1980 SIGMOIDOSCOPY SIGMOIDOSCOPY [facility] Start: 1954 Urine microalbumin profile [facility] Start: 1953 Anxiety Screening Anxiety Screening [facility] Start: 1953 Depression Screening Depression Screening [facility] Start: 1940 COVID-19 VACCINE (#1) COVID-19 VACCINE (#1) [facility] Start: 1940 COVID-19 VACCINE (1) COVID-19 VACCINE (1) [facility] Start: 06-30-1936 COVID-19 VACCINE (#1) COVID-19 VACCINE (#1) [facility] COLOGUARD COLOGUARD Lab Ro utine Screening for colon cancer Ordered: 04/08/2022 [facility] Work Phone: Comment on above: Ordered: 04/08/2022 End: 12-01-2025 MR Ankle - right WO contrast MRI ANKLE WO IVCON RIGHT Radiology Routine Chronic pain of right ankle 1 Occurrences starting 11/01/2024 until 12/01/2025 [facility] Comment on above: 1 Occurrences starting 11/01/2024 until 12/01/2025 End: 09-17-2024 XR Ankle - right AP and Lateral and oblique [facility] Work Phone: Comment on above: 1 Occurrences starting 09/17/2024 until 09/17/2024 End: 12-01-2025 XR Ankle - right AP and Lateral and oblique XR ANKLE GENERAL 3V AP/LAT/OBL RIGHT Radiology Routine Right ankle swelling 1 Occurrences starting 11/01/2024 until 12/01/2025 [facility] Work Phone: Comment on above: 1 Occurrences starting 11/01/2024 until 12/01/2025 XR Ankle - right AP and Lateral and oblique XR ANKLE GENERAL 3V AP/LAT/OBL RIGHT Radiology Routine Right ankle swelling 11/01/2024 2:21 PM EST [facility] XR Calcaneus - right 2 Views XR CALCANEUS 2V AXIAL/LAT RIGHT Radiology Routine Pain in joint involving right ankle and foot 09/19/2024 2:13 PM [facility] XR Foot - right AP a nd Lateral and oblique XR FOOT GENERAL 3V AP/LAT/OBL RIGHT Radiology Routine Pain in joint involving right ankle and foot 09/19/2024 2:13 PM [facility] Work Phone: End: 12-01-2025 XR Foot - right AP and Lateral and oblique XR FOOT GENERAL 3V AP/LAT/OBL RIGHT Radiology Routine Right ankle swelling 1 Occurrences starting 11/01/2024 until 12/01/2025 [facility] Comment on above: 1 Occurrences starting 11/01/2024 until 12/01/2025 XR Foot - right AP a nd Lateral and oblique XR FOOT GENERAL 3V AP/LAT/OBL RIGHT Radiology Routine Right ankle swelling 11/01/2024 2:21 PM [facility] Immunizations Immunization Date Immunization Notes Care Provider Fa [facility] 12-07-2017 influenza virus vacc ine, unspecified formulation Migdalia Cramer MD Work Phone: [facility] 12-01-2016 influenza, high dose seasonal, preservative-free Migdalia Cramer MD Work Phone: [facility] 10-22-2015 pneumococcal conjuga te vaccine, 13 valent Migdalia Cramer MD Work Phone: [facility] Work Phone: 08-15-2015 influenza, high dose seasonal, preservative-free Migdalia Cramer MD Work Phone: [facility] 01-22-2015 zoster vaccine, live Migdalia alfonso MD Work Phone: [facility] 09-18-2014 influenza, seasonal, injectable Migdalia Cramer MD Work Phone: [facility] Work Phone: 09-04-2013 influenza virus vacc ine, unspecified formulation Migdalia Cramer MD Work Phone: [facility] 08-23-2012 influenza virus vacc ine, unspecified formulation Migdalia Cramer MD Work Phone: [facility] Work Phone: 11-22-2011 pneumococcal polysaccharide vaccine, 23 valent Migdalia Cramer MD Work Phone: [facility] 09-15-2011 influenza virus vacc ine, unspecified formulation Migdalia Cramer MD Work Phone: [facility] 09-03-2010 influenza virus vacc ine, unspecified formulation Migdalia Cramer MD Work Phone: [facility] Payers Date Payer Category Payer Self-pay 2020 Medicare UHC MEDICARE UHC MEDICARE ADVANTAGE PPO [id number] 2020-Present [phone] [address] [address] [place] [address] PPO [id number] 2020 Medicare UHC MEDICARE UHC MEDICARE ADVANTAGE PPO [id number] 2020-Present [phone] [address] [address] [place] [address] PPO [id number] 2020 Medicare (Managed Care) [facility] CARE ADVANTAGE PPO [id number] 2020 Medicare [id number] Unknown [id number] Unknown [id number] Unknown [id number] Unknown [id number] Unknown [id number] Unknown [id number] Unknown [id number] Social History Date Type Detail Facility Start: 09-16-2011 End: 10-23-2022 Tobacco smoking status WAIS Never smoked tobacco [facility] Start: 10-15-2021 End: 02-13-2025 Alcohol intake Current non-drinker of alcohol (finding) [facility] Start: 09-10-2020 End: 03-08-2023 History SDOH Alcohol Frequency 1 [facility] Start: 09-10-2020 End: 09-16-2020 History SDOH Social Connections Phone 5 [facility] Start: 09-10-2020 End: 09-16-2020 History SDOH Social Connections Get Together 2 [facility] Start: 09-10-2020 History SDOH Social Connections Druze 3 [facility] Start: 09-10-2020 History SDOH Social Connections Living 4 [facility] Start: 1935 Sex Assigned At Not on file [facility] Start: 11-09-2021 End: 12-09-2021 Exposure to SARS-CoV-2 (event) Unable to assess [facility] Start: 06-14-2021 End: 05-08-2022 Exposure to SARS-CoV-2 (event) Not sure [facility] Start: 09-16-2011 End: 10-23-2022 Tobacco use and exposure Smokeless tobacco non-user [facility] Start: 09-09-2020 End: 03-17-2023 History of Social function [facility] Start: 09-09-2020 End: 03-17-2023 Social connection and isolation panel [facility] Do you belong to any clubs or organizations such as pentecostalism groups, unions, fraternal or athletic groups, or school groups? Yes [facility] Are you now , , , , never or living with a partner? [facility] How often to you hav e a drink containing alcohol? Never [facility] Average Number of Drinks Not on file [facility] Work Phone: Do you feel stress - tense, restless, nervous, or anxious, or unable to sleep at night because your mind is troubled all the time - these days [OSQ] Only a little [facility] (I/We) worried otf er (my/our) food would run out before (I/we) got money to buy more. Never true [facility] Work Phone: In the past 12 month s, was there a time when you were not able to pay the mortgage or rent on time? No [facility] Tobacco smoking stat [facility] Unknown if ever smoked [facility] Work Phone: Start: 02-14-2025 End: 02-21-2025 Sex Female (finding) [facility] Start: 1935 Sex Assigned At Female W [facility] Medical Equipment Procedure Code Equipment Code Equipment Origin al Text Equipment Identifier Dates [id number], [id number], [id number] Start: 2019 End: 08-21-2024 Comment on above: USE DIRECTED TO T EST BLOOD SUGARS 3 TIMES A DAY Test blood sugar onc e daily Functional Status Date Assessment Result Facility 12-12-2024 Are you deaf, or do you have serious difficulty hearing No 12/12/2024 1:12 PM Petrona Arreguin RN No [facility] 12-12-2024 Are you blind, or do you have serious difficulty seeing, even when wearing glasses No 12/12/2024 1:12 PM Petrona Arreguin, LIT No [facility] 12-12-2024 Do you have serious difficulty walking or climbing stairs No 12/12/2024 1:12 PM Petrona Arreguin, LIT No [facility] 12-12-2024 Do you have difficul ty dressing or bathing No 12/12/2024 1:12 PM Petrona Arreguin RN No [facility] 12-12-2024 Because of a physica l, mental, or emotional condition, do you have difficulty doing errands alone such as visiting a physician's office or shopping No 12/12/2024 1:12 PM Petrona Arreguin RN No [facility] 03-09-2023 Are you deaf, or do you have serious difficulty hearing Yes 03/09/2023 4:15 PM Shannon Kraus RN Yes [facility] 03-09-2023 Are you blind, or do you have serious difficulty seeing, even when wearing glasses No 03/09/2023 4:15 PM Shannon Kraus RN No [facility] 03-09-2023 Do you have serious difficulty walking or climbing stairs Yes 03/09/2023 4:15 PM Shannon Kraus RN Yes [facility] 03-09-2023 Do you have difficul ty dressing or bathing Yes 03/09/2023 4:15 PM Shannon Kraus RN Yes [facility] 03-09-2023 Because of a physica l, mental, or emotional condition, do you have difficulty doing errands alone such as visiting a physician's office or shopping Yes 03/09/2023 4:15 PM Shannon Kraus RN Yes [facility] Mental Status Date Assessment Result Facility 12-12-2024 Because of a physica l, mental, or emotional condition, do you have serious difficulty concentrating, remembering, or making decisions No 12/12/2024 1:12 PM Petrona Arreguin, LIT No [facility] 03-09-2023 Because of a physica l, mental, or emotional condition, do you have serious difficulty concentrating, remembering, or making decisions Yes 03/09/2023 4:15 PM EDT Shannon Stringer, LIT Yes [facility] Clinical Notes 05-25-2017 to 02-14-2025 Lien Bang DPM - 02/14/2025 9:04 AM Margie Luo RN - 02/13/2025 1:28 PM EDTPatient InstructionsTelephone Encounter - Lidia Carbajal LPN - 02/11/2025 12:58 PM EDTPatient Instructions Note Date & Type Note Facility 02-14-2025 Note [facility] 02-14-2025 History of Present illness Narrative Date of Visit: 02/13/2025 CHIEF COMPLAINT: Right ankle wound and RT heel pressure check SP OR right ankle incision and drainage and ulcer debridement 11/27/24 DM II, HgbA1c 10.4 (11/21/24) ADM 11/21/24-12/12/24 HISTORY OF PRESENT ILLNESS: Patient presents to the wound center for follow up since admission to [facility] 11/21/24 where she underwent RT ankle I&D [...] accompanied by family members Home Care Company/Nursing Facility:[facility] Consent captured for debridement per Lien Bang DPM and alex until July 2025 Anticoagulant Therapy: N/A Living Situation (ie... 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 Bang in 2 weeks - Continue [...] of the right lateral ankle Sign In: 1352 A Moment of CARE was completed. Appropriate [...] [facility] documented in this encounter [facility] 02-13-2025 Instructions Margie Steiner RN - 02/13/2025 1:29 PM EDT WOUND CARE INSTRUCTIONS- Yusuf Medina Wound location: Right Ankle [facility] HOME: - Wound Care Instructions: - Gather [...] for 1 additional month then stop Apply tubi-armhole sewer D to bilateral lower legs Apply a Single layer tubi-armhole sewer compression stocking to the right foot base [...] following changes to the Wound Center at [phone] or go to the Emergency Department: Fever or chills Increased drainage Green or yellow drainage Foul odor Increased pain Hardness around the wound Redness, warmth or swelling of the surrounding tissue Color change to the wound When contacting the wound center at the ([phone]): Leave a message that includes your full [...] emergency department. PLAN/ORDERS: - Return to the [facility] for a follow-up with salesperson stereo equipment Dr. Bang in 2 weeks - Continue [...] Lien Bang DPM/osvaldo/fhvimal documented in this encounter [facility] 02-13-2025 Note [facility] 02-11-2025 Telephone encounter Note Received results of labs done on 02/04/2025 from [facility] (abnormal results in bold): sed rate 23 0-30 Report sent for scanning. [facility] 02-11-2025 Miscellaneous Notes Received results of labs done on 02/04/2025 from [facility] (abnormal results in bold): sed rate 23 0-30 Report sent for scanning. documented in this encounter [facility] 01-18-2025 Telephone encounter Note Noted Willie Kaur APRN.CNP [facility] 01-18-2025 Miscellaneous Notes Noted Willie Kaur APRN.CNP Contacted [facility] spoke with Gabbie (nurse), I asked to clarify patient's medication or send updated med list. She states We don't need anything from you She's living here permanently & uses primary care in-house doc. No further information was given or obtained. Chart indicates that she is at [facility], phone number on a fax recently received indicates the SNF is [phone]. Please call the facility that she is at to verify which cholesterol medicine she is taking since caregiver Demetria is not currently in chare of medication administration and can't clarify pravachol vs lipitor. Thank you. Willie Kaur APRN.CNP/ Relative Demetria states the patient is in a half-way now, so she needs someone to reach out to her because she states they are giving her different medications at the half-way. Please reach out to her at [phone] Attempted to contact relative Demetria with no [...] Jame Hernandez MA documented in this encounter [facility] 01-18-2025 Telephone encounter Note Contacted [facility] spoke with Gabbie (nurse), I asked to clarify patient's medication or send updated med list. She states We don't need anything from you She's living here permanently & uses primary care in-house doc. No further information was given or obtained. [facility] 01-18-2025 Telephone encounter Note Chart indicates that she is at [facility], phone number on a fax recently received indicates the SNF is [phone]. Please call the facility that she is at to verify which cholesterol medicine she is taking since caregiver Demetria is not currently in chare of medication administration and can't clarify pravachol vs lipitor. Thank you. Willie Kaur APRN.CELL ROOM SUPERVISOR/ [facility] 01-17-2025 Telephone encounter Note Relative Demetria states the patient is in a half-way now, so she needs someone to reach out to her because she states they are giving her different medications at the half-way. Please reach out to her at [phone] [facility] 01-17-2025 Telephone encounter Note Attempted to contact celeste Augustin with no success. Left VM requesting call back. If relative returns call, please clarify prescription. [facility] 01-17-2025 Note [facility] 01-17-2025 History of Present illness Narrative Date of Visit: 01/16/2025 CHIEF COMPLAINT: Right ankle wound and RT heel pressure check SP OR right ankle incision and drainage and ulcer debridement 11/27/24 DM II, HgbA1c 10.4 (11/21/24) ADM 11/21/24-12/12/24 HISTORY OF PRESENT ILLNESS: Patient presents to the wound center for follow up since admission to [facility] 11/21/24 where she underwent RT ankle I&D [...] negative pressure. To continue wound vac at [place]. Removed vac dressing and debrided wound today. [...] tubigrip every other day. She is at [facility] can WB AT continue offloading right heel, [...] accompanied by family members Home Care Company/Nursing Facility:[facility] Consent captured for debridement per Lien Bang DPM and alex until July 2025 Anticoagulant Therapy: N/A Living Situation (ie... 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 DME: Facility SPECIAL NEEDS: Coordination of care N/A Emotional support N/A OR set-up N/A Art Director N/A Incontinence needs N/A DISCHARGED in stable condition to: Arrived via wheelchair accompanied by family & aide PLAN/ORDERS: - Return to the [facility] for a follow-up with salesperson stereo equipment Dr. Bang in 2 weeks - Follow-up [...] Nanette Welch RN/fm documented in this encounter [facility] 01-17-2025 Telephone encounter Note Images from the original note were not included. Pended med is Pravastatin (Pravachol). Epic med list indicates atorvastatin (Lipitor). Please clarify which patient is taking. Willie Kaur APRN.CELL ROOM SUPERVISOR [facility] 01-16-2025 Telephone encounter Note Patient has been [...] Please review and advise. Jame Hernandez MA [facility] 01-16-2025 Instructions Nanette Welch RN - 01/16/2025 1:12 PM EST WOUND CARE INSTRUCTIONS- Yusuf Medina Wound location: Right Ankle [facility] HOME: - Please re-apply wound VAC today [...] the wound base. - Cover with 4x4 [place] SAP bordered foam or equivalent dressing. - Change your dressing every other day or as needed to maintain a clean, dry and intact dressing. Apply a Single layer tubi-armhole sewer compression stocking to the right foot base [...] following changes to the Wound Center at [phone] or go to the Emergency Department: Fever or chills Increased drainage Green or yellow drainage Foul odor Increased pain Hardness around the wound Redness, warmth or swelling of the surrounding tissue Color change to the wound When contacting the wound center at the ([phone]): Leave a message that includes your full [...] emergency department. PLAN/ORDERS: - Return to the [facility] for a follow-up with salesperson stereo equipment Dr. Bang in 2 weeks - Follow-up [...] Bang DPM /mh/fm documented in this encounter [facility] 01-16-2025 Note [facility] 01-08-2025 Telephone encounter Note Per Alon-- Labs rev [place] stop date today PICC removal in the [...] the picc line after the last dose. [facility] 01-08-2025 Miscellaneous Notes Per Alon-- Labs rev [place] stop date today PICC removal in the [...] has an appt today with Alon at [facility]. She's currently on Cefazolin 2g [...] differential wasn't done on the cbc The PHARMACEUTICAL PHYSICIAN has added it on moving forward The results were attached to the M drive Spoke to the PHARMACEUTICAL PHYSICIANnaveen requested Lilo from [facility] called [phone] to schedule the follow up, I gave her the [facility] number and 01/08 for the schedule date. Delfina Elias Y[place] [facility] [place] be [place]c to [facility] [phone] Summary: COPAT ACTION-FOR IDC USE ONLY Images from the original note were not included. 11/28/2024 8:48 PM Pierce Chi DC PROVIDER ADULT [id number] Patient Info Patient Name Sex Yusuf Medina ([id number]) Female 1935 Encounter Notes Progress Notes by Pierce Chi MD, encounter date 11/28/2024: Progress Notes [facility] Outpatient Parenteral Antimicrobial Therapy (OPAT) Start Form Patient Info Patient MRN Patient Name Address Date of [id number] Yusuf Medina [address] [facility] [id number] 1935 Start Date 11/28/2024 Physician Group [facility] [...] Monitoring Treatment Course Pierce Chi MD Address [address] [place] [address], [place] [address] Prescribing Provider's signature - electronically signed by Pierce Chi MD on 11/28/24 at 8:50 PM documented in this encounter [facility] 01-08-2025 Note [facility] 01-08-2025 History of Present illness Narrative Images [...] or type II) CATIE PLAN: Labs rev [place] stop date today PICC removal in the [...] accompanied by family members Home Care Company/Nursing Facility:[facility] Consent captured for debridement per Lien Bang DPM and good until December 2024 Anticoagulant Therapy: N/A Living Situation (ie... 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 Bang on January 16 at 1:00 [...] - Please follow-up with your PCP or radiotelephone operator about your elevated blood pressure readings. - [...] Cinthia Dao RN/TC documented in this encounter [facility] 01-08-2025 Instructions Cinthia Dao RN - 01/08/2025 12:51 PM EST WOUND CARE INSTRUCTIONS- Yusuf Carol Wound location: Right Ankle [facility] HOME: - Please re-apply wound VAC today [...] following changes to the Wound Center at [phone] or go to the Emergency Department: Fever or chills Increased drainage Green or yellow drainage Foul odor Increased pain Hardness around the wound Redness, warmth or swelling of the surrounding tissue Color change to the wound When contacting the wound center at the ([phone]): Leave a message that includes your full [...] emergency department. PLAN/ORDERS: - Return to the [facility] for a follow-up with salesperson stereo equipment Dr. Bang on January 16 at 1:00 [...] - Please follow-up with your PCP or radiotelephone operator about your elevated blood pressure readings. - If you have any questions or concerns that cannot be answered with the following information, please follow the instructions listed above on how to contact the wound center. Pierce Chi MD/ALANA/TC documented in this encounter [facility] 01-08-2025 Note [facility] 01-08-2025 Telephone encounter Note Yusuf has an appt today with Alon at [facility]. She's currently on Cefazolin 2g iv q8 with a stop date for today. [facility] 01-07-2025 Telephone encounter Note Jan 07 labs reviewed, no changes The creat was never done The results were attached to the M drive [facility] 01-04-2025 Telephone encounter Note Received record release from [facility]. Faxed to number provided on form, confirmation fax received. [facility] 01-04-2025 Miscellaneous Notes Received record release from [facility]. Faxed to number provided on form, confirmation fax received. The initial note indicates that a financial sales representative is calling and gave return phone number [phone]. I called this number and phone rang and rang numerous times. No voice mail. I can print of POA, stamp and fax since this is a facility to facility request. Given to nursing. If the financial sales representative needs anything else and calls back, Please ask for name and direct line so that return call can be made. Thank you. Willie Kaur APRN.CELL ROOM SUPERVISOR Spoke with a company secretary at [facility], he took the info again to get us a signed records release faxed to the office. Please watch for fax Please advise [facility] that if patient signs record release, they can get any records they need from [facility] medical records. Or family can sign record request at half-way and half-way can fax Family Medicine the records request and I can send what I can. Our fax is [phone]. Willie Kaur APRN.CNP Records release was not signed. Please review and advice. Received call from [facility]. The financial sales representative has appointment with patient's sons this afternoon at 2 pm and is requesting Advanced Directive/POA paperwork that was scanned in on 12/31. Advised to send records request, but she is concerned about not having this paperwork by 2 pm meeting. Abrasive Mixer can be reached at [phone]. Fax number given for records request as well. documented in this encounter [facility] 01-04-2025 Telephone encounter Note The initial note indicates that a financial sales representative is calling and gave return phone number [phone]. I called this number and phone rang and rang numerous times. No voice mail. I can print of POA, stamp and fax since this is a facility to facility request. Given to nursing. If the financial sales representative needs anything else and calls back, Please ask for name and direct line so that return call can be made. Thank you. Willie Kaur APRN.DRAKE [facility] 01-04-2025 Telephone encounter Note Spoke with a company secretary at [facility], he took the info again to get us a signed records release faxed to the office. Please watch for fax [facility] 01-04-2025 Telephone encounter Note Please advise [facility] that if patient signs record release, they can get any records they need from [facility] medical records. Or family can sign record request at half-way and half-way can fax Family Medicine the records request and I can send what I can. Our fax is [phone]. Willie Kaur APRN.CELL ROOM SUPERVISOR [facility] 01-04-2025 Note HNO ID: [id number] Author: TYESHA SINGLETON MD Service: ? Author [...] with dramatic improvement Currently she is in [place] and here with AVELINA and nurse aid who gives the history Currently she is pain free Also spoke with her nurse at [place] who states patient does nto complain of pain, pretty sedentary. No specific complaints at [place] per nurse Currently doing well, no pain at present Family states after debridement of rt ankle- patient feels weak and does not want to walk around Was living alone until 2 months ago and now at [place]. Prior to debridement , patient was not [...] L REMV CATARACT EXTRACAP,INSERT LENS Bilateral 2020 [facility] predniSONE (DELTASONE) 5 mg tablet Take 5 [...] Sister None B (more content not included)... [facility] 01-04-2025 History of Present illness Narrative [...] with dramatic improvement Currently she is in [place] and here with AVELINA and nurse aid who gives the history Currently she is pain free Also spoke with her nurse at [place] who states patient does nto complain of pain, pretty sedentary. No specific complaints at [place] per nurse Currently doing well, no pain at present Family states after debridement of rt ankle- patient feels weak and does not want to walk around Was living alone until 2 months ago and now at [place]. Prior to debridement , patient was not [...] L REMV CATARACT EXTRACAP,INSERT LENS Bilateral 2020 [facility] predniSONE (DELTASONE) 5 mg tablet Take 5 [...] every day prn -written instructions given to [place] as well as verbal instructions to family and nurse who is taking care of her at [place] 2. Rt ankle cellulitis and osteomyelitis -currently [...] Swollen Glands: No documented in this encounter [facility] 01-03-2025 Telephone encounter Note Records release was not signed. Please review and advice. [facility] 01-03-2025 Telephone encounter Note Received call from [facility]. The financial sales representative has appointment with patient's sons this afternoon at 2 pm and is requesting Advanced Directive/POA paperwork that was scanned in on 12/31. Advised to send records request, but she is concerned about not having this paperwork by 2 pm meeting. [employer] can be reached at [phone]. Fax number given for records request as well. [facility] 01-02-2025 Telephone encounter Note SOCIAL WORK Date of Service: Thursday January 02, 2025 [facility] Fireworks Maker (SW) Aditi Lopez attempted to contact Yusuf Medina by phone using acid purifier services to complete the distress assessment. Yusuf has been diagnosed with Normocytic anemia. She flagged for moderate depression on 12-31-24. 08/14/2018 11/21/2024 2024 PHQ-9 Score 9 13 12 LYRIC spoke with Yusuf's family member Mercedes. She advised that Yusuf is in a residential facility. Mercedes advised that she completed the questionnaire without the patient. She also noted that Yusuf will most likely not understand the Monegasque acid purifier because she speaks a different dialect. At this time, social work service is declined/deferred based on: she pt is at a SNF and family member completed the questionnaire. Please re-consult social work if any other psychosocial needs arise. Unable To Reach Patient PLAN: Follow up on an as needed basis ALEJANDRO Encarnacion [facility] Work Phone: 01-02-2025 Miscellaneous Notes SOCIAL WORK Date of Service: Thursday January 02, 2025 [facility] Fireworks Maker (SW) Aditi Lopez attempted to contact Yusuf Medina by phone using acid purifier services to complete the distress assessment. Yusuf has been diagnosed with Normocytic anemia. She flagged for moderate depression on 12-31-24. 08/14/2018 11/21/2024 2024 PHQ-9 Score 9 13 12 SW spoke with Yusuf's family member Mercedes. She advised that Yusuf is in a residential facility. Mercedes advised that she completed the questionnaire without the patient. She also noted that Yusuf will most likely not understand the Monegasque acid purifier because she speaks a different dialect. At this time, social work service is declined/deferred based on: she pt is at a SNF and family member completed the questionnaire. Please re-consult social work if any other psychosocial needs arise. Unable To Reach Patient PLAN: Follow up on an as needed basis ALEJANDRO Encarnacion documented in this encounter [facility] 01-02-2025 Instructions Grupo Mendez MD - 01/02/2025 9:19 AM EST Hemoglobin was low at 7.8 Obtaining repeat lab to determine if blood transfusion needed and if needs nutrient support for anemia Recommend repeating blood counts once weekly for next 6 weeks starting next week Please schedule follow-up with Dr. Mendez in 7 weeks For scheduling questions, please call [phone] (tests and appointments). Ask for the oncology bowling ball marker. For symptom management or care coordination questions, please call Renetta at [phone] or use my chart to reach us. After hours with medical questions, please call the doctor on-call at [phone]. Thank you, Grupo Mendez MD documented in this encounter [facility] 01-02-2025 Note HNO ID: [id number] Author: GRUPO MENDEZ MD Service: ? Author [...] L REMV CATARACT EXTRACAP,INSERT LENS Bilateral 2020 [facility] FAMILY HISTORY Problem Relation Age of Onset [...] (3 mL) I (more content not included)... [facility] 01-02-2025 History of Present illness Narrative [...] L REMV CATARACT EXTRACAP,INSERT LENS Bilateral 2020 [facility] FAMILY HISTORY Problem Relation Age of Onset [...] Range Status 01/02/2025 5.9 % Final Abs [place] Date Value Ref Range Status 01/02/2025 0.61 [...] today's encounter, 01/02/2025) documented in this encounter [facility] 2024 Telephone encounter Note Dec 31 labs reviewed, no changes The results were attached to the M drive [facility] 12-27-2024 Note [facility] 12-27-2024 History of Present illness Narrative Date of Visit: 12/26/2024 CHIEF COMPLAINT: Right ankle wound and NEW RT heel pressure ulcer OR right ankle incision and drainage and ulcer debridement 11/27/24 DM II, HgbA1c 10.4 (11/21/24) ADM 11/21/24-12/12/24 HISTORY OF PRESENT ILLNESS: Patient presents to the wound center for first follow up since admission to [facility] 11/21/24 where she underwent RT ankle I&D [...] unsuccessful, became inflamed and infected. Patient arrived via:[facility] Home Care Company/Nursing Facility:[facility] rehab until 01/08 for IV abx Consent captured for debridement per Lien Bang DPM and alex until December 2024. Special Instructions (for example, patient stands at the bedside for exam/dressing): Anticoagulant Therapy:n/a Living Situation (ie... 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 Provider seeing patient:Lien Bang DPM __ WOUND [...] order date DME: [employer] , PH: [phone] SPECIAL NEEDS: Coordination of care N/A Emotional support N/A OR set-up N/A Art Director N/A Incontinence needs N/A DISCHARGED in stable [...] to ANY of questions 5-9, [facility] Sravanthi Hollis RN/TC documented in this encounter [facility] 12-26-2024 Telephone encounter Note Noted Willie Kaur APRN.CNP [facility] 12-26-2024 Miscellaneous Notes Noted Willie Kaur APRN.CNP [...] caregiver demetria tapia calling to have her Interactive Fate message she sent below addressed. Yusuf Robles's sons and are in town to make an assessment whether she is able to go home from rehab. Can you talk with them to help with their decision? Please call Nathaniel Medina at [phone]. They are here till Tuesday 12 noon. Thank you. documented in this encounter [facility] 12-26-2024 Telephone encounter Note Contacted son Nathaniel--advised [...] a POA to act on pt's behalf [facility] 12-26-2024 Telephone encounter Note Dec 24 labs reviewed, no changes The results were attached to the M drive [facility] 12-26-2024 Telephone encounter Note Addressed in other encounter. Willie Kaur APRN.CNP [facility] 12-26-2024 Miscellaneous Notes Addressed in other encounter. Willie Kaur APRN.CELL ROOM SUPERVISOR documented in this encounter [facility] 12-26-2024 Instructions Sravanthi Hollis RN - 12/26/2024 1:09 PM EST WOUND CARE INSTRUCTIONS- Yusuf Medina Wound location: Right ankle [facility] -PLEASE CONTINUE WOUND VAC PREVIOUS ON THE [...] following changes to the Wound Center at [phone] or go to the Emergency Department: Fever or chills Increased drainage Green or yellow drainage Foul odor Increased pain Hardness around the wound Redness, warmth or swelling of the surrounding tissue Color change to the wound When contacting the wound center at the ([phone]): Leave a message that includes your full [...] to be scheduled through Central Scheduling. Call [phone].(If applicable) Please be aware that the Covid19 exposure questions will be asked as you enter the hospital and as you arrive to each area. Thank you for your patience and understanding as we attempt to protect our patients during this difficult time. Lien Bang DPM/fhm/tc documented in this encounter [facility] 12-26-2024 Note [facility] 12-26-2024 Telephone encounter Note I wish I [...] physical safety for discharge. Willie Kaur APRN.DRAKE [facility] 12-26-2024 Telephone encounter Note Spoke to the nurse, naveen Cartwright [facility] 12-26-2024 Telephone encounter Note Patients caregiver demetria tapia calling to have her Interactive Fate message she sent below addressed. Yusuf Robles's sons and are in town to make an assessment whether she is able to go home from rehab. Can you talk with them to help with their decision? Please call Nathaniel Medina at [phone]. They are here till Tuesday 12 noon. Thank you. [facility] Work Phone: 12-25-2024 Telephone encounter Note The following approved medication requests have been transmitted electronically. Requested Prescriptions Signed Prescriptions Disp Refills amLODIPine (NORVASC) 5 mg tablet 90 tablet 3 Sig: TAKE 1 TABLET BY MOUTH ONCE DAILY Authorizing Provider: IWLLIE KAUR APRN.CELL ROOM SUPERVISOR [facility] 12-25-2024 Miscellaneous Notes The following approved medication [...] Aditi Phan LPN documented in this encounter [facility] 12-25-2024 Telephone encounter Note Patient has been [...] Please review and advise. Aditi Phan LPN [facility] 12-20-2024 Telephone encounter Note Dec 17 labs wnl The differential wasn't done on the cbc The PHARMACEUTICAL PHYSICIAN has added it on moving forward The results were attached to the M drive [facility] 12-20-2024 Telephone encounter Note Spoke to the PHARMACEUTICAL PHYSICIAN, labs requested [facility] 12-13-2024 Telephone encounter Note Lilo from [facility] called [phone] to schedule the follow up, I gave her the [facility] number and 01/08 for the schedule date. Delfina Elias [facility] 12-11-2024 Note [facility] 12-10-2024 Telephone encounter Note Yusuf is still [place] [facility] She will be d/c to [facility] [phone] [facility] 12-10-2024 Note [facility] 12-10-2024 Note [facility] 12-09-2024 Note [facility] 12-09-2024 Note [facility] 12-08-2024 Note [facility] 12-07-2024 Note [facility] 12-07-2024 Note [facility] 12-06-2024 Note [facility] 12-05-2024 Note [facility] 12-04-2024 Note [facility] 12-03-2024 Note [facility] 12-02-2024 Note [facility] 12-01-2024 Note [facility] 12-01-2024 Note [facility] 12-01-2024 Note [facility] 11-30-2024 Note [facility] 11-29-2024 Note [facility] 11-29-2024 Telephone encounter Note Summary: COPAT ACTION-FOR IDC USE ONLY Images from the original note were not included. 11/28/2024 8:48 PM Pierce Chi DC PROVIDER ADULT [id number] Patient Info Patient Name Sex Yusuf Medina ([id number]) Female 1935 Encounter Notes Progress Notes by Pierce Chi MD, encounter date 11/28/2024: Progress Notes [facility] Outpatient Parenteral Antimicrobial Therapy (OPAT) Start Form Patient Info Patient MRN Patient Name Address Date of [id number] Yusuf Medina [address] [facility] [id number] 1935 Start Date 11/28/2024 Physician Group [facility] [...] Monitoring Treatment Course Pierce Chi MD Address [address] [place], [place] [id number] Prescribing Provider's signature - electronically signed by Pierce Chi MD on 11/28/24 at 8:50 PM [facility] 11-29-2024 Note [facility] 11-28-2024 Note [facility] 11-28-2024 History of Present illness Narrative Images from the original note were not included. [facility] Outpatient Parenteral Antimicrobial Therapy (OPAT) Start Form Patient Info Patient MRN Patient Name Address Date of [id number] Yusuf Medina [address] [facility] [id number] 1935 Start Date 11/28/2024 Physician Group [facility] [...] Monitoring Treatment Course Pierce Chi MD Address [address] [place] [id number] Prescribing Provider's signature - electronically signed by Pierce Chi MD on 11/28/24 at 8:50 PM documented in this encounter [facility] 11-28-2024 Note [facility] 11-28-2024 Note [facility] 11-27-2024 Telephone encounter Note The following approved medication requests have been transmitted electronically. Requested Prescriptions Signed Prescriptions Disp Refills metFORMIN (GLUCOPHAGE) 850 mg tablet 180 tablet 3 Sig: TAKE 1 TABLET BY MOUTH TWICE DAILY WITH MEALS Authorizing Provider: WILLIE KAUR APRN.CELL ROOM SUPERVISOR [facility] 11-27-2024 Miscellaneous Notes The following approved medication requests have been transmitted electronically. Requested Prescriptions Signed Prescriptions Disp Refills metFORMIN (GLUCOPHAGE) 850 mg tablet 180 tablet 3 Sig: TAKE 1 TABLET BY MOUTH TWICE DAILY WITH MEALS Authorizing Provider: WILLIE KAUR APRN.CELL ROOM SUPERVISOR Patient has been identified by name and [...] Martina Tucker MA documented in this encounter [facility] 11-27-2024 Note [facility] 11-27-2024 Telephone encounter Note Patient has been [...] Please review and advise. Martina Tucker MA [facility] 11-26-[address] Mendez reviewed labs from [facility]. Dr. Mendez recommended for patient to be seen around mid Dec 2024 as hem/onc follow-up. Grupo Mendez MD November 26, 2024 5:33 PM [facility] Work Phone: 11-26-[address] Mendez reviewed labs from [facility]. Dr. Mendez recommended for patient to be seen around mid Dec 2024 as hem/onc follow-up. 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 Pt is still inpatient. When she is discharged she will be sent to a rehab and will not be able to make appts. Any time soon. Please advise for further requirements. documented in this encounter [facility] 11-26-2024 Note [facility] 11-26-2024 Telephone encounter Note Spoke w/ pt Demetria alvarez. Pt is still inpatient. When she is discharged she will be sent to a rehab and will not be able to make appts. Any time soon. Please advise for further requirements. [facility] 11-26-2024 Note [facility] 11-25-2024 Note [facility] 11-24-2024 Note [facility] 11-23-2024 Note [facility] 11-23-2024 Note [facility] 11-22-2024 Note [facility] 11-21-2024 Note [facility] 11-21-2024 Telephone encounter Note Currently has appointment in Rheumatology 01/04/25 to evaluate for inflammatory arthritis. There was a Hematology appointment scheduled 12/03/24, but rescheduled by family due to location. MRI ankle 11/19/24 ordered by Orthopedics. Patient sent My Chart message to Orthopedics 11/20/24. I reminded patient/family that My Chart can take up to 72 business hours for response. Willie Kaur APRN.DRAKE [facility] 11-21-2024 Miscellaneous Notes Currently has appointment in Rheumatology 01/04/25 to evaluate for inflammatory arthritis. There was a Hematology appointment scheduled 12/03/24, but rescheduled by family due to location. MRI ankle 11/19/24 ordered by Orthopedics. Patient sent My Chart message to Orthopedics 11/20/24. I reminded patient/family that My Chart can take up to 72 business hours for response. Willie Kaur APRN.CELL ROOM SUPERVISOR documented in this encounter [facility] 11-19-2024 History of Present illness Narrative Radiology [...] PATIENT PRESENTS WITH AN IMPLANTABLE OR ATTACHED VACUUM CLEANER ASSEMBLER: No RADIOLOGY DEPARTMENT: MR; Exam(s) Completed: Lower MSK: Ankle/Hind Foot, right PERIPHERAL IV DATA: Not applicable SIGNED BY: FRANCIS Tierney November 19, 2024 10:07 AM documented in this encounter [facility] 11-19-2024 Note HNO ID: [id number] Author: YAZ MAYFIELD MRI Tech Service: Radiology Author Type: Rn Provider Relations Type: Progress Notes Filed: 11/19/2024 10:08 Note [...] PATIENT PRESENTS WITH AN IMPLANTABLE OR ATTACHED VACUUM CLEANER ASSEMBLER: No RADIOLOGY DEPARTMENT: MR; Exam(s) Completed: Lower MSK: Ankle/Hind Foot, right PERIPHERAL IV DATA: Not applicable SIGNED BY: FRANCIS Tierney November 19, 2024 10:[address] [facility] 11-06-2024 Telephone encounter Note Patient took a sooner appt in November. [facility] 11-06-2024 Miscellaneous Notes Patient took a sooner appt in November. Currently has Rheumatology scheduled 01/04/25. Are there any sooner appointments and would family be interested? She has been seeing Hematology and they think that her abnormal blood work may have a Rheumatology cause. Willie Kaur APRN.CELL ROOM SUPERVISOR documented in this encounter [facility] 11-06-2024 Telephone encounter Note Currently has Rheumatology scheduled 01/04/25. Are there any sooner appointments and would family be interested? She has been seeing Hematology and they think that her abnormal blood work may have a Rheumatology cause. Willie Kaur APRN.CELL ROOM SUPERVISOR [facility] 11-05-2024 Telephone encounter Note Patient has secondary leukocytosis in the setting of highly elevated sed rate, RUBEN 1:320 titer, positive [employer] Hematology work-up was essentially negative highlighting concern for rheumatological disease. Patient is leaving to [place] for 2 weeks I will schedule lab on 11/21/2024 and see her on 11/22/2024 at 9:10 AM for iron deficiency (this is separate issue). Renetta with care coordination will kindly help with arranging lab and follow-up as above. Patient and family aware of my plan. Grupo Mendez MD November 05, 2024 6:55 PM [facility] 11-05-2024 Miscellaneous Notes Patient has secondary leukocytosis in the setting of highly elevated sed rate, RUBEN 1:320 titer, positive [employer] Hematology work-up was essentially negative highlighting concern for rheumatological disease. Patient is leaving to [place] for 2 weeks I will schedule lab on 11/21/2024 and see her on 11/22/2024 at 9:10 AM for iron deficiency (this is separate issue). Renetta with care coordination will kindly help with arranging lab and follow-up as above. Patient and family aware of my plan. Grupo Mendez MD November 05, 2024 6:55 PM documented in this encounter [facility] 11-01-2024 Note Addended by: SIMONE AGUILAR on: 11/01/2024 03:34 PM Modules accepted: Orders [facility] 11-01-2024 Miscellaneous Notes Addended by: SIMONE KEVIN on: 11/01/2024 03:34 PM Modules accepted: Orders documented in this encounter [facility] 11-01-2024 Note HNO ID: [id number] Author: SIMONE KEVIN MD Service: ? Author [...] L REMV CATARACT EXTRACAP,INSERT LENS Bilateral 2020 [facility] Family History: FAMILY HISTORY Problem Relation Age of Onset None Brother None Sister None Brother Medications: Current Outpatient Medications Medication Sig meloxicam (MOBIC) 15 mg tablet TAKE 1 TABLET BY MOUTH ONCE DAILY NEEDED FOR PAIN. DO NOT COMBINE WITH DICLOFENAC GEL traZODone (DESYREL) 50 mg tablet Take 1 tablet by mouth at bedtime as needed for sedation. blood sugar diagnostic ([employer] ULTRA TEST) test strip Test blood sugar [...] her anatomy B (more content not included)... [facility] 11-01-2024 History of Present illness Narrative [...] L REMV CATARACT EXTRACAP,INSERT LENS Bilateral 2020 [facility] Family History: FAMILY HISTORY Problem Relation Age of Onset None Brother None Sister None Brother Medications: Current Outpatient Medications Medication Sig meloxicam (MOBIC) 15 mg tablet TAKE 1 TABLET BY MOUTH ONCE DAILY NEEDED FOR PAIN. DO NOT COMBINE WITH DICLOFENAC GEL traZODone (DESYREL) 50 mg tablet Take 1 tablet by mouth at bedtime as needed for sedation. blood sugar diagnostic ([employer] ULTRA TEST) test strip Test blood sugar [...] next visit: No PCP: [place] [id number] [facility] [id number] FELLOW / RESIDENT: No fellow or resident assisted in this office visit. Simone Kevin MD documented in this encounter [facility] 10-29-2024 Note HNO ID: [id number] Author: AB BENSON MD Service: ? Author Type: Physician Type: Progress Notes Filed: 11/04/2024 19:29 Note Text: This note was created using Weplayriter. Subjective Yusuf Medina is a 88 year [...] and family voiced understanding. Ab Benson MD [facility] 10-29-2024 History of Present illness Narrative Images from the original note were not included. This note was created using Weplayriter. Subjective Yusuf Medina is a 88 year [...] Ab Benson MD documented in this encounter [facility] 10-12-2024 Telephone encounter Note The following approved medication requests have been transmitted electronically. Requested Prescriptions Signed Prescriptions Disp Refills meloxicam (MOBIC) 15 mg tablet 90 tablet 3 Sig: TAKE 1 TABLET BY MOUTH ONCE DAILY NEEDED FOR PAIN. DO NOT COMBINE WITH DICLOFENAC GEL Authorizing Provider: WILLIE KAUR APRN.CELL ROOM SUPERVISOR [facility] 10-12-2024 Miscellaneous Notes The following approved medication requests have been transmitted electronically. Requested Prescriptions Signed Prescriptions Disp Refills meloxicam (MOBIC) 15 mg tablet 90 tablet 3 Sig: TAKE 1 TABLET BY MOUTH ONCE DAILY NEEDED FOR PAIN. DO NOT COMBINE WITH DICLOFENAC GEL Authorizing Provider: WILLIE KAUR APRN.CELL ROOM SUPERVISOR Patient has been identified by name and [...] Martina Tucker MA documented in this encounter [facility] 10-12-2024 Telephone encounter Note Patient has been [...] Please review and advise. Martina Tucker MA [facility] 09-20-2024 History of Present illness Narrative September [...] L REMV CATARACT EXTRACAP,INSERT LENS Bilateral 2020 [facility] Family History: FAMILY HISTORY Problem Relation Age of Onset None Brother None Sister None Brother Medications: Current Outpatient Medications Medication Sig traZODone (DESYREL) 50 mg tablet Take 1 tablet by mouth at bedtime as needed for sedation. blood sugar diagnostic ([employer] ULTRA TEST) test strip Test blood sugar [...] next visit: No [place]CP: [place] [id number] [facility] [id number] FELLOW / RESIDENT: No fellow or resident assisted in this office visit. Simone Kevin MD documented in this encounter [facility] 09-20-2024 Note HNO ID: [id number] Author: SIMONE KEVIN MD Service: ? Author [...] L REMV CATARACT EXTRACAP,INSERT LENS Bilateral 2020 [facility] Family History: FAMILY HISTORY Problem Relation Age of Onset None Brother None Sister None Brother Medications: Current Outpatient Medications Medication Sig traZODone (DESYREL) 50 mg tablet Take 1 tablet by mouth at bedtime as needed for sedation. blood sugar diagnostic ([employer] ULTRA TEST) test strip Test blood sugar [...] May have so (more content not included)... [facility] 09-19-2024 History of Present illness Narrative [...] PATIENT PRESENTS WITH AN IMPLANTABLE OR ATTACHED VACUUM CLEANER ASSEMBLER: No RADIOLOGY DEPARTMENT: General X-ray: Exam(s) Completed: Lower Extremity X-Ray(s): Foot, Right and Wt. Bearing and Heel, Right and Wt. Bearing PERIPHERAL IV DATA: Not applicable SIGNED BY: RUT Hui September 19, 2024 2:13 PM documented in this encounter [facility] 09-19-2024 Note HNO ID: [id number] Author: ZAID KUHN CT Service: Radiology Author [...] PATIENT PRESENTS WITH AN IMPLANTABLE OR ATTACHED VACUUM CLEANER ASSEMBLER: No RADIOLOGY DEPARTMENT: General X-ray: Exam(s) Completed: Lower Extremity X-Ray(s): Foot, Right and Wt. Bearing and Heel, Right and Wt. Bearing PERIPHERAL IV DATA: Not applicable SIGNED BY: RUT Hui September 19, 2024 2:[address] [facility] 09-18-2024 Telephone encounter Note Results were reviewed. I spoke with [id number] Demetria about suspicion for calcaneal bone fracture. Orders Signed This Visit (1) CONSULT PANEL TO ORTHOPAEDICS STAT, Dx: 1. Right ankle swelling 2. Closed nondisplaced fracture of right calcaneus, unspecified portion of calcaneus, initial encounte Grupo Mendez MD September 18, 2024 9:19 PM [facility] 09-18-2024 Miscellaneous Notes Results were reviewed. I spoke with [id number] Demetria about suspicion for calcaneal bone fracture. Orders Signed This Visit (1) CONSULT PANEL TO ORTHOPAEDICS STAT, Dx: 1. Right ankle swelling 2. Closed nondisplaced fracture of right calcaneus, unspecified portion of calcaneus, initial encounte Grupo Mendez MD September 18, 2024 9:19 PM documented in this encounter [facility] 09-18-2024 History of Present illness Narrative Radiology [...] PATIENT PRESENTS WITH AN IMPLANTABLE OR ATTACHED VACUUM CLEANER ASSEMBLER: No RADIOLOGY DEPARTMENT: Ultrasound PERIPHERAL IV DATA: Not applicable SIGNED BY: Christina Tucker RDMS September 18, 2024 8:37 AM documented in this encounter [facility] 09-18-2024 Note [facility] 09-17-2024 Telephone encounter Note This was addressed in hematology appointment in [place]. Closing this encounter [facility] 09-17-2024 Miscellaneous Notes This was addressed in hematology appointment in [place]. Closing this encounter Vm left for patient's son. She has an appointment today in [place]-can Yusuf go to express care there after hematology? documented in this encounter [facility] 09-17-2024 Instructions Grupo Mendez MD - 09/17/2024 3:52 PM EST Please schedule Xray right ankle today Please schedule STAT US DVT right lower leg tomorrow Please send patient to lab today For scheduling questions, please call [phone] (tests and appointments). Ask for the oncology bowling ball marker. For symptom management or care coordination questions, please call Renetta Holder at [phone] or use my chart to reach us. After hours with medical questions, please call the doctor on-call at [phone]. Thank you, Grupo Mendez MD documented in this encounter [facility] 09-17-2024 History of Present illness Narrative Consultation requested by Dr. Migdalia Cramer for an opinion regarding leukocytosis. My final recommendations will be communicated back to the requesting physician by way of shared Medical record or letter to requesting physician via US mail. Presenting complaint: Patient Yusuf Medina was sent to my office to be evaluated for leukocytosis. ASSESSMENT: (D76.337) Leukocytosis, unspecified type (primary encounter diagnosis) Comment: [...] L REMV CATARACT EXTRACAP,INSERT LENS Bilateral 2020 [facility] FAMILY HISTORY Problem Relation Age of Onset [...] as needed for sedation. blood sugar diagnostic ([employer] ULTRA TEST) test strip Test blood sugar [...] Range Status 09/17/2024 5.5 % Final Abs [place] Date Value Ref Range Status 09/17/2024 0.52 [...] Migdalia Ortiz MD documented in this encounter [facility] 09-17-2024 Note HNO ID: [id number] Author: GRUPO MEDNEZ MD Service: ? Author [...] office to be evaluated for leukocytosis. ASSESSMENT: (A10.709) Leukocytosis, unspecified type (primary encounter diagnosis) Comment: [...] L REMV CATARACT EXTRACAP,INSERT LENS Bilateral 2020 [facility] FAMILY HISTORY Problem Relation Age of Onset [...] as needed for sedation. blood sugar diagnostic ([employer] ULTRA TEST) test strip Test blood sugar [...] ONCE DAILY metFORMIN (more content not included)... [facility] 09-17-2024 Telephone encounter Note Vm left for patient's son. She has an appointment today in [place]-can Yusuf go to express care there after hematology? [facility] 09-13-2024 Note HNO ID: [id number] Author: MIGDALIA CRAMER MD Service: ? Author [...] panel in 6 months [address]dalia Cramer MD [facility] 09-13-2024 History of Present illness Narrative [...] Migdalia Cramer MD documented in this encounter [facility] 09-13-2024 Instructions Migdalia Cramer MD - 09/13/2024 [...] review all the medicines you take, even qsdh-[id number] medicines. As you get older, the way [...] certain medical conditions. documented in this encounter [facility] 09-04-2024 Telephone encounter Note Patient has been scheduled for 09/17 Thank you [facility] 09-04-2024 Miscellaneous Notes Patient has been scheduled for 09/17 Thank you Please contact the patient's zyykoq-yi-rpo Demetria at [phone] to assist with scheduling a consult with hematology/oncology for a high white blood cell count. I sent a MyCmyOrdert message today about test results: Nori Ramos [...] recommend we get a consultation with a transportation logistics internship, a blood specialist. I put an order in for a consultation and will ask a bowling ball marker to contact you to get it set up. We just want to make sure there is nothing serious going on that we should be more concerned about. Migdalia Cramer MD documented in this encounter [facility] 09-04-2024 Telephone encounter Note Please contact the patient's nieigu-aw-rrq Demetria at [phone] to assist with scheduling a consult with hematology/oncology for a high white blood cell count. I sent a ChartCube message today about test results: Nori Ramos [...] recommend we get a consultation with a transportation logistics internship, a blood specialist. I put an order in for a consultation and will ask a bowling ball marker to contact you to get it set up. We just want to make sure there is nothing serious going on that we should be more concerned about. Migdalia Cramer MD [facility] 08-22-2024 Telephone encounter Note Patients sister in law has been informed. Thank you [facility] 08-22-2024 Miscellaneous Notes Patients sister in law [...] of the labs. documented in this encounter [facility] 08-21-2024 Telephone encounter Note Please let her know that Dr. Cramer is currently evaluating the lab results and will reach out to her as soon as he is able. He is currently out of the office. ,Willie Kaur APRN.CNP [facility] 08-21-2024 Telephone encounter Note The following approved medication requests have been transmitted electronically. Requested Prescriptions Signed Prescriptions Disp Refills blood sugar diagnostic ([employer] ULTRA TEST) test strip 100 Strip 3 Sig: Test blood sugar once daily Authorizing Provider: WILLIE KAUR APRN.CNP [facility] 08-21-2024 Miscellaneous Notes The following approved medication [...] 2024 10:12 AM documented in this encounter [facility] 08-21-2024 Telephone encounter Note Patient has been [...] Please review and advise. Jame Hernandez MA [facility] 08-21-2024 Telephone encounter Note Prescription Refill Information [...] Perla Perez August 21, 2024 10:12 AM [facility] 08-21-2024 Telephone encounter Note Patients sister in law called and wanted to discuss the results of the labs. [facility] 08-14-2024 History of Present illness Narrative Yusuf [...] COMBINE WITH DICLOFENAC GEL blood sugar diagnostic ([employer] ULTRA TEST) test strip Test blood sugar [...] a long period of time Willie Kaur APRN.CELL ROOM SUPERVISOR I have personally performed a ubbg-ws-zcyq evaluation on this patient. I have reviewed [...] and the documented plan of care with [facility] partner. Check UA and UCx to R/O UTI Repeat CBC due to leukocytosis Check inflammatory markers as well as SPEP/UPEP OK for trazodone for sleep Sleep hygiene WBC will need follow-up to assure return to normal, especially if no UTI identified Keep appt currently scheduled for 09/13/24 Migdalia Cramer MD documented in this encounter [facility] 08-14-2024 Note HNO ID: [id number] Author: MIGDALIA CRAMER MD Service: ? Author [...] COMBINE WITH DICLOFENAC GEL blood sugar diagnostic ([employer] ULTRA TEST) test strip Test blood sugar [...] swelling or eryt (more content not included)... [facility] 08-13-2024 Note SARS-COV-2 (AGENT OF COVID-19) RNA: Not detected INFLUENZA A RNA: Not detected INFLUENZA B RNA: Not detected RESPIRATORY SYNCYTIAL VIRUS (RSV) RNA: Not detected [facility] Comment on above: Performed By: #### B CRPB1 #### [facility] CLIA [id number] [address] [place] [address] OF [facility] #### [id number] #### [facility] CLIA [id number] [address] [place] [address] STATES OF [facility] 08-13-2024 Telephone encounter Note Called sister in law who is with the patient, patient is Monegasque speaking. ? Blood sugar-patient checks every am, did not do today and is not understanding that sister in law would like her to check it now. She did eat this morning [place] recently Concern based on pill box that she may have taken a days Sister-in -law is in agreement that patient needs to be seen in an emergency room-[facility] is close. Reason for Disposition [1] Drinking very little AND [2] dehydration suspected (e.g., no urine > 12 hours, very dry mouth, very lightheaded) Answer Assessment - Initial Assessment Questions 1. DESCRIPTION: Describe how you are feeling. Patient speaks Monegasque, Sister-in -law is there with her. Patient [...] pain) no Protocols used: Weakness (Generalized) and [id number] [facility] 08-13-2024 Miscellaneous Notes Called sister in law who is with the patient, patient is Monegasque speaking. ? Blood sugar-patient checks every am, did not do today and is not understanding that sister in law would like her to check it now. She did eat this morning [place] recently Concern based on pill box that she may have taken a days Sister-in -law is in agreement that patient needs to be seen in an emergency room-[facility] is close. Reason for Disposition [1] Drinking very little AND [2] dehydration suspected (e.g., no urine > 12 hours, very dry mouth, very lightheaded) Answer Assessment - Initial Assessment Questions 1. DESCRIPTION: Describe how you are feeling. Patient speaks Monegasque, Sister-in -law is there with her. Patient [...] pain) no Protocols used: Weakness (Generalized) and [id number] Patient's caregiver Demetria spoke with the patient [...] seen today. Demetria can be reached at [phone]. documented in this encounter [facility] 08-13-2024 Telephone encounter Note Patient's caregiver Demetria [...] seen today. Demetria can be reached at [phone]. [facility] 08-10-2024 Telephone encounter Note The following approved medication requests have been transmitted electronically. Requested Prescriptions Signed Prescriptions Disp Refills glipiZIDE (GLUCOTROL XL) 2.5 mg 24 hr tablet 90 tablet 3 Sig: TAKE 1 TABLET BY MOUTH ONCE DAILY Authorizing Provider: WILLIE KAUR APRN.DRAKE [facility] 08-10-2024 Miscellaneous Notes The following approved medication [...] Sandrita Christianson LPN documented in this encounter [facility] 08-10-2024 Telephone encounter Note Patient has been [...] Please review and advise. Sandrita Christianson LPN [facility] 07-19-2024 Telephone encounter Note The following [...] BEING SHIPPED Authorizing Provider: WILLIE KAUR APRN.CNP [facility] 07-19-2024 Miscellaneous Notes The following approved [...] KAUR APRN.CNP [facility] to [facility] per message below. [...] 2024 9:49 AM documented in this encounter [facility] 07-19-2024 Telephone encounter Note [facility], ocean transportation intermediary to [facility] pharmacy per message below. [facility] 07-19-2024 Telephone encounter Note Prescription Refill Information [...] Perla Perez July 19, 2024 9:49 AM [facility] 07-12-2024 Instructions Migdalia Cramer MD - 07/12/2024 9:56 AM EDT Try drinking 1 Glucerna a day to get some extra calories. I don't want you to continue to lose weight. Take all medications exactly as prescribed. Please have labs done again in late August. Keep appointment scheduled for 09/13/24 for Medicare Annual Wellness Visit. documented in this encounter [facility] 07-12-2024 Note HNO ID: [id number] Author: MIGDALIA CRAMER MD Service: ? Author [...] of keeping this visit Migdalia Cramer MD [facility] 07-12-2024 History of Present illness Narrative [...] Migdalia Cramer MD documented in this encounter [facility] 05-23-2024 Telephone encounter Note Patient has been [...] Please review and advise. Sandrita Christianson LPN [facility] 05-23-2024 Miscellaneous Notes Patient has been identified [...] 2024 10:28 AM documented in this encounter [facility] 05-23-2024 Telephone encounter Note Prescription Refill Information [...] needs a short term refill sent to [facility] and a 90 day supply [facility] to [facility] se[facility] only has 2 pills left Perla Perez May 23, 2024 10:28 AM [facility] 04-26-2024 Telephone encounter Note Scheduled for Medicare AWV 09/13/24 Has lab orders The following approved medication requests have been transmitted electronically. Requested Prescriptions Signed Prescriptions Disp Refills pioglitazone (ACTOS) 45 mg tablet 90 tablet 3 Sig: Take 1 tablet by mouth once daily. Authorizing Provider: MIGDALIA CRAMER MD [facility] 04-26-2024 Miscellaneous Notes Scheduled for Medicare AWV [...] Last office visit in this department: 04/13/2023 [facility] [place] health: 04/23/2023 FOV: 07/12/2024 RX INSTRUCTIONS: Patient [...] Jame Hernandez MA documented in this encounter [facility] 04-26-2024 Telephone encounter Note Patient has been [...] Please review and advise. Jame Hernandez MA [facility] 04-16-2024 Telephone encounter Note Spoke with in Demetria saenz and explained that her current Rx is for Glipizide/Glucotrol 2.5 mg once daily - not for Glyburide. Verbalized understanding. No further questions. [facility] 04-16-2024 Miscellaneous Notes Spoke with Demetria caldwell and explained that her current Rx is for Glipizide/Glucotrol 2.5 mg once daily - not for Glyburide. Verbalized understanding. No further questions. 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 Please advise [facility] 03-21-2024 Note HNO ID: [id number] Author: GERTRUDIS BILL DO Service: ? Author [...] agree with all of its relevant components. [facility] 03-21-2024 History of Present illness Narrative [...] its relevant components. documented in this encounter [facility] 03-13-2024 Note HNO ID: [id number] Author: LIEN MEJIA MA Service: ? Author Type: Rewards Consultant Type: Progress Notes Filed: 03/13/2024 17:00 Note [...] Mejia MA March 13, 2024 4:[address] [facility] 03-13-2024 History of Present illness Narrative [...] POPULATION HEALTH NAVIGATION OUTREACH Action/FYI Spoke with [id number] Demetria. Patient is on [facility] for the following HM care gaps: Schedule [...] Diabetic Eye Exam HBA1C 03/21/2024 in [facility] with KOSMORSKY, GERTRUDIS S - Dilated Retinal Exam 04/12/2024 in [facility] with ADITI CAMARGO - CARISAU pseudogout 07/12/2024 in [facility] with MIGDALIA CRAMER - Follow Up, HCC Gap Closure 09/13/2024 in [facility] with MIGDALIA CRAMER - AWV Due HCC related Navigation Signature: Lien Mejia MA March 13, 2024 2:52 PM documented in this encounter [facility] 03-13-2024 Note HNO ID: [id number] Author: LIEN MEJIA MA Service: ? Author Type: Rewards Consultant Type: Progress Notes Filed: 03/13/2024 17:00 Note Text: POPULATION HEALTH NAVIGATION OUTREACH Action/FYI Spoke with [id number] Demetria. Patient is on [facility] for the following HM care gaps: Schedule [...] Diabetic Eye Exam HBA1C 03/21/2024 in [facility] with GERTRUDIS BILL - Dilated Retinal Exam 04/12/2024 in [facility] with ADITI CAMARGO - HFU pseudogout 07/12/2024 in [facility] with MIGDALIA CRAMER - Follow Up, HCC Gap Closure 09/13/2024 in [facility] with MIGDALIA CRAMER - AWV Due HCC related Navigation Signature: Lien Mejia MA March 13, 2024 2:[address] [facility] 03-13-2024 Note Patient Outreach (LENNOX TNAV) YUSUF MEDINA ([id number]) 1935 [address] Date Time Provider Department 03/13/24 LIEN MEJIA During your visit today, we recorded the following information about you: Lien Mejia MA 03/13/2024 5:00 PM Signed POPULATION HEALTH NAVIGATION OUTREACH Action/FYI Spoke with [id number] Demetria. Patient is on [facility] for the following HM care gaps: Schedule [...] Diabetic Eye Exam HBA1C 03/21/2024 in [facility] with GERTRUDIS BILL - Dilated Retinal Exam 04/12/2024 in [facility] with ADITI CAMARGO - HFU pseudogout 07/12/2024 in [facility] with MIGDALIA CRAMER - Follow Up, HCC Gap Closure 09/13/2024 in [facility] with MIGDALIA CRAMER - AWV Due HCC related Navigation Signature: Lien Mejia MA March 13, 2024 2:52 PM Lien Mejai MA 03/13/2024 5:00 PM Signed POPULATION HEALTH [...] Visit: Population Health Navigation Outreach [3910] Cmt: [facility] [place] [facility] Primary Visit Diagnosis:Diabetes mellitus, non-insulin dependent (NIDDM or type II) (HCC) [E11.9] Other Visit Diagnoses:Hyperlipidemia associated with type 2 diabetes mellitus (HCC) (HCC) [E11.69, E78.5] Essential hypertension [I10] Order(s):HEMOGLOBIN A1C [YXHUN3P] Order #: [id number] FUTURE BASIC METABOLIC PANEL [SQBMP] Order #: [id number] FUTURE LIPID PANEL, NONFASTING [SQLIPNF] Order #: [id number] FUTURE ALBUMIN/CREATININE RATIO, URINE [SQUACR] Order #: [id number] FUTURE Prescriptions as of 03/13/2024 - pravastatin [...] MOUTH ONCE DAILY - blood sugar diagnostic ([employer]CH ULTRA TEST) test strip Test blood sugar [...] this patient by: CAREGIVER José Miguel Swanson [facility] Problem List As Of Date 03/13/2024 Noted Resolved Osteoarth NOS-other site [M19.90] 09/15/2011 BENIGN HYPERTENSION [I10] 12/01/2016 Diabetes mellitus without mention of complicati*04/10/2003 05/24/2011 Esophageal reflux [K21.9] 06/15/2006 Lumbago [M54.50] 05/31/2007 09/15/2011 Urgency of urination [R39.15] (more content not included)... [facility] 02-28-2024 Miscellaneous Notes The following approved medication requests have been transmitted electronically. Requested Prescriptions Signed Prescriptions Disp Refills lansoprazole (PREVACID) 30 mg capsule 90 capsule 3 Sig: Take 1 capsule by mouth once daily. Authorizing Provider: WILLIE KAUR APRN.CELL ROOM SUPERVISOR Order pended for mail Last OV-04/23/2023 [facility] Next OV-none Wildlife Removal Specialist is calling ,asking for a refill on the following medications . pravastatin (PRAVACHOL) 20 mg tablet 90 tablet 3 10/23/2022 10/23/2023 Sig: Take 1 tablet by mouth once daily. Sent to pharmacy as: pravastatin (PRAVACHOL) 20 mg tablet Class: Normal Route: ORAL Order: [id number] E-Prescribing Status: Receipt confirmed by pharmacy (10/23/2022 9:10 AM EST) She doesn't have many left , they are asking for this fill to be sent to the [facility] . Then if she gets refills send it to the mail in pharmacy . Please advise and route back so we can make accounts receivable accountant aware . Thanks documented in this encounter [facility] 02-01-2024 Miscellaneous Notes The following approved medication requests have been transmitted electronically. Requested Prescriptions Signed Prescriptions Disp Refills lisinopril-hydroCHLOROthiazide (ZESTORETIC) 20-25 mg per tablet 90 tablet 3 Sig: TAKE 1 TABLET BY MOUTH ONCE DAILY Authorizing Provider: WILLIE KAUR APRN.CNP documented in this encounter [facility] 02-01-2024 Miscellaneous Notes The following approved medication requests have been transmitted electronically. 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 Request denied no further action needed. 7 day short term Rx sent to [facility] on 01/11/24. 1 year [facility] Rx sent to [facility] on 01/11/24. Please call to clarify if [...] review and advise. Jame Hernandez MA [address] Willie Kaur APRN.DRAKE Order Providers Prescribing Provider Encounter Provider Willie Kaur APRN.Migdalia Victoria MD Outpatient Medication Detail Disp Refills Start End metFORMIN (GLUCOPHAGE) 850 mg tablet 14 tablet 0 01/11/2024 01/18/2024 Sig: Take 1 tablet by mouth two times a day with meals for 7 days. Sent to pharmacy as: metFORMIN (GLUCOPHAGE) 850 mg tablet Class: Normal Route: ORAL Order: [id number] E-Prescribing Pt states she is completely out and mail order has not come in would like a short supply sent to [facility] Ruthy documented in this encounter [facility] 01-11-2024 Miscellaneous Notes The following approved medication [...] day with meals. Authorizing Provider: WILLIE KAUR APRN.CELL ROOM SUPERVISOR Patient has been identified by name and [...] for temporary supply to be sent to [facility] while they wait for [facility] for 90 day supply. Please review and advise. Jame Hernandez MA Yusuf Carol called today. Reason : Yusuf accounts receivable accountant is calling today , she states the [...] mg tablet Class: Normal Route: ORAL Order: [id number] E-Prescribing Status: Receipt confirmed by pharmacy (10/14/2023 2:49 PM EST) Please advise and route back so caregiver can be updated . Thanks documented in this encounter [facility] 10-14-2023 Miscellaneous Notes The following approved medication [...] also needs an emergency script sent to [facility] on [address] in [place]. Patient has been identified by name and date of : Yes Requested Prescriptions Pending Prescriptions Disp Refills metFORMIN (GLUCOPHAGE) 850 mg tablet 180 tablet 3 Sig: Take 1 tablet by mouth two times a day with meals. RX INSTRUCTIONS: Patient aware RX escripted to mail away pharmacy. No need to notify patient. Dinora Perez documented in this encounter [facility] 09-06-2023 Miscellaneous Notes The following approved medication [...] Jame Hernandez MA documented in this encounter [facility] 08-31-2023 Miscellaneous Notes Called the number on the chart and confirmed with accounts receivable accountant that the medication has been sent as [...] that 1 year supply was sent to [facility] pharmacy on 06/02/23. Demetria states that's the problem, all her medications need to go through mail order as her insurance will not cover medications sent to [facility]. Informed her that will send high priority to provider to send short term supply of medication to pharmacy today so it can be picked up and ocean transportation intermediary supply to be sent through mail order. Demetria agreeable and verbalized understanding. Please advise Thank you! Please call to review with Demetria the pharmacy issue for patient's Glipizide. She is asking for a call today as the patient has 1 left. documented in this encounter [facility] 06-23-2023 Miscellaneous Notes The following approved medication requests have been transmitted electronically. Requested Prescriptions Signed Prescriptions Disp Refills metFORMIN (GLUCOPHAGE) 850 mg tablet 180 tablet 3 Sig: Take 1 tablet by mouth twice daily with meals. Authorizing Provider: WILLIE KAUR APRN.CELL ROOM SUPERVISOR Patient has been identified by name and [...] Laura Hay Pss documented in this encounter [facility] 06-03-2023 Miscellaneous Notes Called and left VM. Morro Tomas, Patient Theatrical Dresser 1st attempt Lvm , will try again [...] would like the medication sent to the [facility] [address] [place] [address] Leanne Ding documented in this encounter [facility] 05-12-2023 Miscellaneous Notes 7.6 (03/08/2023) documented in this encounter [facility] 04-28-2023 History of Present illness Narrative POPULATION [...] Care Gap or Scheduling/Wellness visits Payer: Payor: [employer] / Plan: [employer] ADVANTAGE PPO / Product Type: PPO [...] 2023 12:52 PM documented in this encounter [facility] 04-20-2023 Miscellaneous Notes Contacted patient's caregiver Demetria, [...] new one? Please advise Thank you Patient's accounts receivable accountant Demetria calling with a question for a nurse regarding the patient's blood glucose monitor. Please call. TY documented in this encounter [facility] 04-20-2023 Miscellaneous Notes Caregiver made aware Appointment [...] if ok. TY documented in this encounter [facility] 04-13-2023 Instructions Willie Kaur APRN.DRAKE - 04/13/2023 3:33 PM EDT CONTINUE Actos 45 mg once daily REDUCE DOSE Instead of 1000 mg Metformin twice daily, you should decrease dose to 850 mg twice daily START 2.5 mg Glipizide If you develop dizziness, light headedness, sweating, nausea, shakiness check your blood sugar to see if you are dropping too low documented in this encounter [facility] 04-13-2023 History of Present illness Narrative SUBJECTIVE: Yuusf Medina is a 87 year old female [...] mg twice daily I recommended they test Claer's blood sugar if she gets a dizzy episode to see if her blood sugar is low I encouraged them to schedule a consult with [facility], referral placed 04/08/23. Demetria indicates that it is inconvenient to keep coming to the doctor to take care of the diabetes. Demetria must come to act as acid purifier, they decline acid purifier. Patients last HgbA1C was Hemoglobin A1C (%) Date Value 03/08/2023 7.6 10/21/2022 7.5 04/27/2022 7.1 10/12/2021 7.4 09/10/2020 6.7 01/24/2020 6.8 ). Last BP 04/13/23 : 125/63 03/29/23 : 150/71 03/17/23 : 146/67 CKD3 Creatinine Date Value Ref Range Status 03/09/2023 0.92 0.58 - 0.96 mg/dL Final Demetria as acid purifier Declines [facility] acid purifier Current Outpatient Medications on File Prior to Visit Medication Sig metFORMIN (GLUCOPHAGE) 1,000 mg tablet Take 1 tablet by mouth twice daily with meals. blood sugar diagnostic ([employer] ULTRA TEST) test strip Test blood sugar [...] mellitus, non-insulin dependent (NIDDM or type II) ([facility]) - ICD9: 250.00, ICD10: E11.9 (primary diagnosis) [...] diabetes. Demetria must come to act as acid purifier, they decline acid purifier. - GLIPIZIDE ER 2.5 MG TABLET, EXTENDED RELEASE 24 HR 2. CKD stage 3 due to type 2 diabetes mellitus (HCC) - ICD9: 250.40, 585.3, ICD10: E11.22, N18.30 - Stable Willie Kaur APRN.DRAKE documented in this encounter [facility] 03-29-2023 Instructions Willie Kaur APRN.CNP - 03/29/2023 3:50 PM EDT Check blood sugar once per day Tuesday - check in morning Tuesday - check in evening Tuesday - check in morning Tuesday - check in evening - check in morning Tuesday - check in evening Tuesday - check in morning documented in this encounter [facility] 03-29-2023 History of Present illness Narrative SUBJECTIVE: Yusuf Medina is a 87 year old female who presents for 2 week evaluation and treatment of DM Sister in law Augustin acts as acid purifier, declines phone acid purifier 03/17/23 Family Medicine office visit Sister in [...] BY MOUTH ONCE DAILY blood sugar diagnostic ([employer] ULTRA TEST) test strip Test blood sugar [...] months - METFORMIN 1,000 MG TABLET - SportsHedgeTOUCH ULTRA TEST STRIPS - BASIC METABOLIC PNL 2. Essential hypertension - ICD9: 401.9, ICD10: I10 - Fair control 3. CKD stage 3 due to type 2 diabetes mellitus (HCC) - ICD9: 250.40, 585.3, ICD10: E11.22, N18.30 - Check kidney function one month after increased dose Metformin. Keep close eye on kidney function - BASIC METABOLIC PNL Willie Kaur APRN.CELL ROOM SUPERVISOR documented in this encounter [facility] 03-24-2023 Miscellaneous Notes Called caregiver and went [...] like office to call her back at [phone] as soon as possible. Patient has been identified by name and birthdate. Duration of symptoms: N/A Person calling: caregiver: Demetria Call patient at: at home [phone] (home) [phone] (cell) Was an appointment scheduled: No Closing statement: Results or non-symptom based questions: Thank you for calling [facility], your call will be returned within the next business day. Laura Hay Pss documented in this encounter [facility] 03-22-2023 Miscellaneous Notes Spoke with patient's caregiver, Demetria. Documented in nurse triage encounter from 03/18/23. Patient caregiver called back.She would like a call back at [phone] Thanks Left message to call the office back, may speak with any available triage nurse. Gabbie Melchor RN Demetria is calling on behalf of Yusuf. She has blood sugars readings to give and would like to speak to a nurse with the readings and any changed to meds. Please call her at [phone] documented in this encounter [facility] 03-17-2023 History of Present illness Narrative Transitional [...] Lymph 1.00 - 4.00 k/uL 0.71 (L) [place]% % 5.7 Abs [place] <0.87 k/uL 0.99 (H) E[place]% % 0.7 [...] Demetria prefers to not drive to [place] so she will try to reschedule this. - CONSULT TO UPSETTER SETTER UP 3. Leukocytosis, unspecified type - ICD9: 288.60, [...] 2023 2:20 PM documented in this encounter [facility] 03-10-2023 History of Present illness Narrative Noted Willie Kaur APRN.CNP TCM Home Visit Referral Source of Stratification: [facility] Admission Status: Discharged Readmission Risk Score: [...] Network Status: In-Network Discharge Pt discharged from [facility] on 03/09/23. Admitted for: Arthalgia Contact made with patient: Yes Hi my name is Lien Hankins RN and I am calling from the [facility] on behalf of your PCP, Migdalia Cramer [...] like to speak with a social work paper steamer to help give you support for any [...] I will send your request to a bowling ball marker who will contact and assist you with [...] Ordered -: No documented in this encounter [facility] 03-07-2023 History of Past i llness Narrative [...] of this encounter (statuses as of 03/10/2023) [facility] History of Past illness Narrative* Problem Noted [...] of this encounter (statuses as of 03/19/2023) [facility] of Past illness Narrative* Problem Noted [...] for 09/05/15 at 08:40am C25). -Greatly appreciate Seernity's recs from Chronic Pain service -Patient's niece [...] of this encounter (statuses as of 03/23/2023) [facility] History of Past illness Narrative* Problem Noted [...] of this encounter (statuses as of 03/24/2023) [facility] of Past illness Narrative* Problem Noted [...] of this encounter (statuses as of 03/30/2023) [facility] of Past illness Narrative* Problem Noted [...] Miralax and Colace to prevent narcotic-induced constipation -MRAK Huizar in Neurosurgery spoke with Dr. Martines [...] of this encounter (statuses as of 04/14/2023) [facility] of Past illness Narrative* Problem Noted [...] of this encounter (statuses as of 04/20/2023) [facility] of Past illness Narrative* Problem Noted [...] of this encounter (statuses as of 04/20/2023) [facility] of Past illness Narrative* Problem Noted [...] of this encounter (statuses as of 04/28/2023) [facility] of Past illness Narrative* Problem Noted [...] of this encounter (statuses as of 05/16/2023) [facility] of Past illness Narrative* Problem Noted [...] of this encounter (statuses as of 06/15/2023) [facility] of Past illness Narrative* Problem Noted [...] of this encounter (statuses as of 06/23/2023) [facility] of Past illness Narrative* Problem Noted [...] of this encounter (statuses as of 08/31/2023) [facility] of Past illness Narrative* Problem Noted [...] of this encounter (statuses as of 09/06/2023) [facility] of Past illness Narrative* Problem Noted [...] of this encounter (statuses as of 10/14/2023) [facility] of Past illness Narrative* Problem Noted [...] of this encounter (statuses as of 01/12/2024) [facility] of Past illness Narrative* Problem Noted [...] of this encounter (statuses as of 01/24/2024) [facility] of Past illness Narrative* Problem Noted [...] of this encounter (statuses as of 02/01/2024) [facility] of Past illness Narrative* Problem Noted [...] of this encounter (statuses as of 02/01/2024) [facility] of Past illness Narrative* Problem Noted [...] of this encounter (statuses as of 02/29/2024) [facility] Miscellaneous Notes* Telephone Encounter - Ok [place] [...] advise. Jame Hernandez MA [facility] Miscellaneous Notes* Telephone Encounter - Willie Kaur [...] Allergies: Patient has no known allergies. (home) [phone] (cell) Reason for call: patient needs a refill on the following medications Disp Refills Start End blood sugar diagnostic ([employer]OUCH ULTRA BLUE TEST STRIP) test strip 300 Strip 3 2019 Sig: USE DIRECTED TO TEST BLOOD SUGARS 3 TIMES A DAY Sent to pharmacy as: blood sugar diagnostic (ONETOUCH ULTRA BLUE TEST STRIP) test strip Class: Normal Order: [id number] E-Prescribing Status: Receipt confirmed by pharmacy (2019 10:20 AM EST) Please advise and make patient aware Thanks documented in this encounterAd[facility]02-14-2023 Miscellaneous Notes* Telephone Encounter - Willie Kaur [...] advise. Sandrita Christianson LPN documented in this encounterAdams County [facility] Center12-10-2022 History of Present illness Narrative* Migdalia Cramer [...] follow-up. Migdalia Cramer MD documented in this encounterAdams County [facility] Center11-21-2022 Miscellaneous Notes* Telephone Encounter - Willie Kaur [...] advise. Sandrita Christianson LPN documented in this encounterAdams County [facility] Center11-17-2022 Miscellaneous Notes* Telephone Encounter - Willie Kaur [...] Last office visit in this department: 05/08/[address] [facility]22 RX INSTRUCTIONS: Patient aware RX will [...] advise. Sandrita Christianson LPN documented in this encounterAdams County [facility] Center10-04-2022 Miscellaneous Notes* Telephone Encounter - Agustina Hernandez [...] she only wants 14 days to local [facility] - I made a copy and corrected the amount. Then I entered her request for the mail order going to [facility]. Each is assigned to the correct Pharmacy . Patient aware RX will be sent to pharmacy. Please call Demetria once sent at [phone]. Jodi Perez documented in this encounterAdams County Regional Medical Center07-29-2022 Miscellaneous Notes* Telephone Encounter - Willie Kaur [...] his note. 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 He also asked them to consider a diagnostic colonoscopy, which is not Cologuard. Willie Kaur APRN.CNP * Telephone Encounter - Sandrita Christianson LPN - 06/10/2022 9:56 AM EDT Fax received from [email or web address] that pt has not completed Cologuard that was ordered on 04/08/22. Fax scanned into pt's chart (according to chart, pt had diag occult blood exam on 04/27/22) Please advise Thank you documented in this encounterAdams County [facility] Center07-15-2022 Miscellaneous Notes* Telephone Encounter - Willie Kaur [...] she does not have any glipizide left? Wildlife Removal Specialist then proceeded to ask questions regarding pioglitazone-is [...] send Short term supply of Glipizide to [facility] pharmacy- [address] (pended for provider). * Telephone Encounter - Sandrita Christianson LPN - 05/28/2022 9:24 AM EDT PSS received call from pt's accounts receivable accountant Demetria. Pt informed Demetria that she is [...] will call our office. documented in this encounterAdams County [facility] Medical Center06-25-2022 History of Present illness Narrative* Migdalia Cramer MD - 05/08/2022 8:08 AM EDT SUBJECTIVE: Yusuf Medina is a 86 year old female who presents for evaluation and treatment of Diabetes Mellitus, Hypertension and Hyperlipidemia Patient concerns: F/U from 04/03 office visit Pain in extremities has improved Had her repeat labs done She has not taken her daily meds yet today Pt discharged from [facility] on 03/29/22. Admitted for: Pain in arms and legs with elevated white count and urinary tract infection Admitted to [facility] 03/23-03/26 and 03/26-03/29 (pain worsened and she [...] Demetria Migdalia Cramer MD documented in this encounterAdams County Regional Medical Center06-14-2022 History of Present illness Narrative* Katia Farooq [...] in patient's care. Summary: Pt discharged from [facility] on 03/29/22. Admitted for: Pain in arms and legs with elevated white count and urinary tract infection Concerns: No concerns at this time. City Engineer plan for next outreach: No further follow up needed at this time. TCM outreach complete. Signature Katia Farooq RN April 27, 2022 documented in this encounterAdams County Regional Medical Center06-14-2022 Evaluation note* Diagnosis Hypertensive kidney disease with stage 3 chronic kidney disease, unspecified whether stage 3a or 3b CKD (HCC)- Primary documented in this encounter [facility]06-13-2022 Miscellaneous Notes* Telephone Encounter - Cheryl Anders [...] 4:28 PM EDT Call placed to pt's accounts receivable accountant, Demetria. Informed her of the 2 blood work orders to have completed, & that pt can give urine sample at [facility] when she goes for lab draw. 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 She states patient received a bottle for her to hand carry her urine, is that correct? Or is it to be done when she arrives at the [facility]? And exactly which labs are to be done forscheduling? Demetria states when patient came in for labs she was told there were no orders and she does not want that to happen again. Call caregiver Demetria to discuss at [phone] documented in this encounterAdams County Regional Medical Center05-26-2022 Miscellaneous Notes* Telephone Encounter - Sandrita Christianson LPN - 04/08/2022 1:25 PM EDT Pt's POA/accounts receivable accountant Demetria notified & had no questions/concerns. * Telephone Encounter - Willie Kaur APRN.CNP - 04/08/2022 11:47 AM EDT Please notify patient that Cologuard has been ordered and Colog[employer] [employer] will reach out [facility] mailing address. Willie Kaur APRN.DRAKE * Telephone Encounter - Yeimy Dubon - 04/08/2022 10:37 AM EDT Patient's accounts receivable accountant, Demetria is calling requesting the Cologuard kit. She is asking for the kit or prescription for the kit. Please return call at [phone] documented in this encounterAdams County Regional Medical Center05-21-2022 Instructions* Patient Instructions* Migdalia Cramer MD - [...] of March. Consider colonoscopy. documented in this encounterAdams County Regional Medical Center05-21-2022 History of Present illness Narrative* Migdalia Cramer [...] review completed Yes SUMMARY: Pt discharged from [facility] on 03/29/22. Admitted for: Pain in arms and legs with elevated white count and urinary tract infection Admitted to [facility] 03/23-03/26 and 03/26-03/29 (pain worsened and she [...] of the right femoral acetabular joint with [id number] contact, subchondral sclerosis and marginal osteophytosis. Left [...] 3 due to type 2 diabetes mellitus ([facility]) (E11.9) Diabetes mellitus, non-insulin dependent (NIDDM or type II) ([facility]) (D50.9) Iron deficiency anemia, unspecified iron deficiency [...] 04/03/2022 8:06 AM EDT documented in this encounterAdams County [facility] Medical Center05-17-2022 Miscellaneous Notes* Telephone Encounter - Willie Kaur [...] up Willie Kaur APRN.CNP documented in this encounterAdams County Regional Medical Center05-17-2022 Miscellaneous Notes* Telephone Encounter - Willie Kaur APRN.CNP - 03/30/2022 10:53 AM EDT Noted and agree with OV Willie Kaur APRN.CNP * Telephone Encounter - Magnolia Johnson RN - 03/30/2022 10:17 AM EDT Spoke with patients child care sitter Demetria. She had questions for the doctor [...] pain (volearen gel and lidocaine patches) and child care sitter is not sure how long she should be using those (advised for now to continue until follow up appointment) Offered several appointments this week but her child care sitter Demetria is having trouble getting her to [...] Assessment Questions Recently in the hospital. Pt child care sitter wanted a follow up to discuss med changes and how to help with her pain more [facility]. Protocols used: INFORMATION ONLY CALL - NO [id number] * Telephone Encounter - ZANA Buck - 03/30/2022 9:16 AM EDT This morning Yusuf caregiver called with some concerns . She has had the patient in the ER two times in the last few days. She is experiencing all over painand would like more suggestions on how to help the patient . Please Advise Thanks documented in this encounterAdams County [facility] Medical Center05-14-2022 History of Past illness Narrative* Problem Noted [...] of this encounter (statuses as of 03/30/2022) [facility]05-[facility] History of Past illness Narrative* Problem Noted [...] of this encounter (statuses as of 03/30/2022) [facility]05-14-2022 History of Past illness Narrative* Problem Noted [...] of this encounter (statuses as of 04/03/2022) [facility]05-14-20[facility] History of Past illness Narrative* Problem Noted [...] of this encounter (statuses as of 04/08/2022) [facility]05-14-20[facility] History of Past illness Narrative* Problem Noted [...] of this encounter (statuses as of 04/26/2022) [facility]14-[facility] History of Past illness Narrative* Problem Noted [...] of this encounter (statuses as of 04/27/2022) [facility]05-14-[facility] History of Past illness Narrative* Problem Noted [...] of this encounter (statuses as of 05/08/2022) [facility] History of Past illness Narrative* Problem Noted [...] of this encounter (statuses as of 05/28/2022) [facility]05-14-[facility] History of Past illness Narrative* Problem Noted [...] of this encounter (statuses as of 06/11/2022) [facility]05-14-[facility] History of Past illness Narrative* Problem Noted [...] of this encounter (statuses as of 08/18/2022) [facility] History of Past illness Narrative* Problem Noted [...] of this encounter (statuses as of 09/30/2022) [facility]05-[facility] History of Past illness Narrative* Problem Noted [...] of this encounter (statuses as of 10/04/2022) [facility] History of Past illness Narrative* Problem Noted [...] of this encounter (statuses as of 11/15/2022) [facility]05-[facility] History of Past illness Narrative* Problem Noted [...] of this encounter (statuses as of 12/28/2022) [facility] History of Past illness Narrative* Problem Noted [...] of this encounter (statuses as of 01/20/2023) [facility]05-[facility] History of Past illness Narrative* Problem Noted [...] of this encounter (statuses as of 02/22/2023) [facility]05-12-2022 Miscellaneous Notes* Telephone Encounter - Willie Kaur [...] advise. Aditi Novoa Pss documented in this encounterAdams County [facility] Center05-09-2022 Miscellaneous Notes* Telephone Encounter - Willie Kaur [...] and advise. Sangita Herring documented in this encounterAdams County [facility] Center04-15-2022 Miscellaneous Notes* Telephone Encounter - Agustina Hernandez [...] as discontinued. Please review and advise at [phone]. documented in this encounterAdams County [facility] Medical Center02-22-2022 Miscellaneous Notes* Telephone Encounter - Lucinda Tapia [...] sent to the pharmacy. Please call patient's accounts receivable accountant at [phone] Daniel Holder documented in this encounterAdams County Regional Medical Center01-24-2022 NoteHome care referral received for patient. Attempted to reach via telephone, however no answer. Voicemail left for return call. [facility]01-21-2022 [facility] CONSULTATION YUSUF MEDINA CCE [id number] ICU NIGHAT PENNY [place] [id number] REFERRING PHYSICIAN: CONSULTING PHYSICIAN: Gertrudis Beckford DO DATE OF CONSULTATION: 12/04/2021 CHIEF COMPLAINT: Status post fall. HISTORY OF PRESENT ILLNESS: This 85-year-old Monegasque woman was taking care of her 16 [...] 2 diabetes. 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 She had fallen. It is unknown [...] levels of other ser (more content not included)...[facility]01-20-2022 NotePatient: YUSUF MEDINA Age: 85 years Sex: [...] Neurological no speech. Procedure FAST: done by pa- no intraperitoneal fluid seen Impression and Plan found down, unknown mechanism, hypothermia Plan: warm, CT eval [facility]08-31-2021 History of Present illness Narrative* Giovanny Salmon, [...] 14, 2021 9:01 AM documented in this encounterAdams County [facility] Center07-12-2017 History of Past illness Narrative* Problem Noted [...] Chronic Pain service -Patient's niece and MARK Snachez called Dr. Martines on 08/26/2015 to get [...] of this encounter (statuses as of 02/18/2022) [facility] History of Past illness Narrative* Problem Noted [...] of this encounter (statuses as of 02/26/2022) [facility] History of Past illness Narrative* Problem Noted [...] of this encounter (statuses as of 03/22/2022) [facility] of Past illness Narrative* Problem Noted [...] of this encounter (statuses as of 03/25/2022) [facility]* Diagnosis Type 2 diabetes mellitus with stage 3 chronic kidney disease, without long-term current use of insulin (HCC) DDD (degenerative disc disease), cervical Degeneration of cervical intervertebral disc documented in this encounter [facility]* Diagnosis DDD (degenerative disc disease), cervical Degeneration of cervical intervertebral disc documented in this encounter [facility]* Diagnosis Essential hypertension Unspecified essential hypertension documented in this encounter [facility]* Diagnosis Acute cystitis without hematuria- Primary [...] not elsewhere classified documented in this encounter [facility]* Diagnosis Screening for colon cancer- Primary Special screening for malignant neoplasms, colon [facility] Diagnosis Iron deficiency anemia, unspecified iron deficiency anemia type- Primary [facility]* Diagnosis Iron deficiency anemia, unspecified iron deficiency anemia type- Primary Acute cystitis with hematuria Acute cystitis Diabetes mellitus, non-insulin dependent (NIDDM or type II) (HCC) CKD stage 3 due to type 2 diabetes mellitus (HCC) Essential hypertension Unspecified essential hypertension Hyperlipidemia associated with type 2 diabetes mellitus (HCC) Hypertensive kidney disease with stage 3b chronic kidney disease (HCC) documented in this encounter [facility]* Diagnosis Gastroesophageal reflux disease without esophagitis Esophageal reflux documented in this encounter [facility]* Diagnosis Type 2 diabetes mellitus with stage 3 chronic kidney disease, without long-term current use of insulin (HCC) documented in this encounter [facility]* Diagnosis Diabetes mellitus, non-insulin dependent (NIDDM [...] diabetes mellitus (HCC) [facility] Diagnosis Diabetes mellitus, non-insulin dependent (NIDDM or type II) (HCC)- Primary [facility] Diagnosis Essential hypertension Unspecified essential hypertension documented in this encounter [facility] note* Diagnosis Pain in both hands- Primary Pain in both wrists Pain in joint, forearm Leukocytosis, unspecified type Type 2 diabetes mellitus with stage 3 chronic kidney disease, without long-term current use of insulin, unspecified whether stage 3a or 3b CKD ([facility]) Muscular deconditioning Muscular wasting and disuse atrophy, not elsewhere classified documented in this encounter [facility] note* Diagnosis Diabetes mellitus, non-insulin dependent (NIDDM or type II) (HCC)- Primary Essential hypertension Unspecified essential hypertension CKD stage 3 due to type 2 diabetes mellitus (HCC) [facility]* Diagnosis Diabetes mellitus, non-insulin dependent (NIDDM or type II) (HCC)- Primary CKD stage 3 due to type 2 diabetes mellitus (HCC) documented in this encounter [facility] note* Diagnosis Diabetes mellitus, non-insulin dependent (NIDDM or type II) (HCC) [facility]* Diagnosis Diabetes mellitus, non-insulin dependent (NIDDM or type II) (HCC) [facility]* Diagnosis Gastroesophageal reflux disease without esophagitis Esophageal reflux documented in this encounter [facility] note* Diagnosis Diabetes mellitus, non-insulin dependent (NIDDM or type II) (HCC)- Primary documented in this encounter [facility] note* Diagnosis Diabetes mellitus, non-insulin dependent (NIDDM or type II) (HCC) documented in this encounter [facility] note* Diagnosis Essential hypertension Unspecified essential hypertension [facility]* Diagnosis Essential hypertension Unspecified essential hypertension documented in this encounter [facility]* Diagnosis Gastroesophageal reflux disease without esophagitis Esophageal reflux [facility]* Diagnosis Diabetes mellitus, non-insulin dependent (NIDDM or type II) (HCC)- Primary Hyperlipidemia associated with type 2 diabetes mellitus (HCC) (HCC) Essential hypertension Unspecified essential hypertension [facility]* Diagnosis Type 2 diabetes mellitus without retinopathy (HCC)- Primary Type II or unspecified type diabetes mellitus without mention of complication, not stated as uncontrolled Pseudophakia Lens replaced by other means documented in this encounter [facility]* Diagnosis Type 2 diabetes mellitus with stage 3 chronic kidney disease, without long-term current use of insulin (HCC) documented in this encounter [facility]* Diagnosis Diabetes mellitus, non-insulin dependent (NIDDM or type II) (HCC) documented in this encounter [facility]* Diagnosis Essential hypertension- Primary Unspecified essential [...] deficiency anemia type documented in this encounter [facility]* Diagnosis Essential hypertension Unspecified essential hypertension documented in this encounter [facility]* Diagnosis Generalized weakness- Primary Other malaise and fatigue Headache, unspecified headache type Leukocytosis, unspecified type CKD stage 3 due to type 2 diabetes mellitus (HCC) Normocytic anemia Anemia, unspecified Essential hypertension Unspecified essential hypertension Insomnia Insomnia, unspecified Arthralgia, unspecified joint documented in this encounter [facility]* Diagnosis Pain Generalized pain documented in this encounter [facility]* Diagnosis Leukocytosis, unspecified type- Primary documented in this encounter [facility]* Diagnosis Right ankle swelling Effusion of ankle and foot joint documented in this encounter [facility]* Diagnosis Right ankle swelling- Primary Effusion of ankle and foot joint Closed nondisplaced fracture of right calcaneus, unspecified portion of calcaneus, initial encounter [facility]* Diagnosis Right ankle swelling Effusion of ankle and foot joint documented in this encounter [facility]* Diagnosis Pain in joint involving right ankle and foot documented in this encounter [facility]* Diagnosis Right ankle swelling Effusion of ankle and foot joint Closed nondisplaced fracture of right calcaneus, unspecified portion of calcaneus, initial encounter documented in this encounter [facility]* Diagnosis Leukocytosis, unspecified type- Primary Normocytic anemia Anemia, unspecified Right ankle swelling Effusion of ankle and foot joint Right ankle swelling Effusion of ankle and foot joint Right ankle swelling Effusion of ankle and foot joint documented in this encounter [facility]* Diagnosis Medicare annual wellness visit, subsequent- [...] Leukocytosis, unspecified type [facility] Diagnosis Right ankle swelling- Primary Effusion of ankle and foot joint Chronic pain of right ankle [facility]* Diagnosis Right ankle swelling Effusion of ankle and foot joint [facility]* Diagnosis Chronic pain of right ankle- Primary [facility]* Diagnosis Normocytic anemia- Primary Anemia, unspecified Leukocytosis, unspecified type [facility]* Diagnosis Chronic pain of right ankle [facility]* Diagnosis Essential hypertension Unspecified essential hypertension [facility]* Diagnosis 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)- Primary Ulcer of ankle [facility]* Diagnosis Pseudogout- Primary Other disorder of calcium metabolism Ankle swelling, right Medication monitoring encounter Encounter for therapeutic drug monitoring documented in this encounter [facility]* Diagnosis Non-pressure chronic ulcer of right [...] kidney disease (HCC) documented in this encounter [facility]* Diagnosis Pressure injury of right ankle, stage 3 (HCC)- Primary [facility] Diagnosis Hyperlipidemia with target LDL less than 100 Other and unspecified hyperlipidemia [facility]* Diagnosis Leukocytosis, unspecified type- Primary Normocytic anemia Anemia, unspecified Vitamin B6 deficiency Cellulitis of right ankle documented [facility] noteNo assessment information availableWACMC Healthcare System Work Phone: Evaluation note* Diagnosis 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)- Primary Ulcer of ankle documented in this encounter [facility] for referral (narrative)* Diagnostic Procedure Only (Routine) - Closed Specialty Diagnoses / Procedures Referred By Contac t Referred To Contact XR IMAGING Diagnoses Pain Procedures XR SHOULDER GENERAL 3V OR MORE AP/TRUE AP/OTHER LT X-RAY SHOULDER COMPLET [place] 2 [place] [address] [place] [address] [place] [address] Referral ID Status Reason Start Date Expiration Date V isits Requested Visits Authorized [id number] Closed Auto-Generate d Referral 07/09/2021 08/08/2022 1 1 [facility] for referral (narrative)* Diagnostic Procedure Only (Routine) - Closed Specialty Diagnoses / Procedures Referred By Contac t Referred To Contact XR IMAGING Diagnoses Right ankle swelling Procedures XR ANKLE GENERAL 3V AP/LAT/OBL RIGHT RADEX ANKLE COMPLETE MINIMUM 3 [place] [address] [place] [address] [place] [address] Referral ID Status Reason Start Date Expiration Date V isits Requested Visits Authorized [id number] Closed Auto-Generate d Referral 09/17/2024 10/17/2025 1 1 [facility] for referral (narrative)* Diagnostic Procedure Only (Urgent) - Closed Specialty Diagnoses / Procedures Referred By Contac t Referred To Contact US IMAGING Diagnoses Right ankle swelling Procedures US DVT LOWER RIGHT DUP-SCAN XTR VEINS UNILATERAL/[place] [address] [place] [phone] [place] [address] Referral ID Status Reason Start Date Expiration Date V isits Requested Visits Authorized [id number] Closed Auto-Generate d Referral 09/18/2024 10/17/2025 1 1 [facility] for referral (narrative)* Diagnostic Procedure Only (Routine) - Closed Specialty Diagnoses / Procedures Referred By Contac t Referred To Contact XR IMAGING Diagnoses Right ankle swelling Procedures XR ANKLE GENERAL 3V AP/LAT/OBL RIGHT RADEX ANKLE COMPLETE MINIMUM 3 [place] [address] [place] [address] [place] [address] Referral ID Status Reason Start Date Expiration Date V isits Requested Visits Authorized [id number] Closed Auto-Generate d Referral 09/17/2024 10/17/2025 1 1 * Diagnostic Procedure Only (Urgent) - Closed Specialty Diagnoses / Procedures Referred By Contac t Referred To Contact US IMAGING Diagnoses Right ankle swelling Procedures US DVT LOWER RIGHT DUP-SCAN XTR VEINS UNILATERAL/[place] [address] [phone] [place] [address] Referral ID Status Reason Start Date Expiration Date V isits Requested Visits Authorized [id number] Closed Auto-Generate d Referral 09/18/2024 10/17/2025 1 1 [facility] for referral (narrative)No reason for referral information availableW[facility] Work Phone: Reason for visit Narrative* Diagnostic Procedure Only (Routine) - Closed Specialty Diagnoses / Procedures Referred By Contac t Referred To Contact XR IMAGING Diagnoses Pain in joint involving right ankle and foot Procedures XR CALCANEUS 2V AXIAL/LAT RIGHT RADEX CALCANEUS MINIMUM 2 VIEWS Simone Kevin MD [address] [place] [address] [place] [address] Referral ID Status Reason Start Date Expiration Date V isits Requested Visits Authorized [id number] Closed Auto-Generate d Referral 09/19/2024 10/19/2025 1 1 [facility] Summary Purpose Family History No Family History Records FoundNo Family History Records FoundNo Family History Records FoundNo Family History Records Found Advance Directives No Advanced Directives Records FoundDocuments on File Type Date Recorded 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 Advance Directive(s) 2024 10:00 AM [...] Documents on File Type Date Recorded 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 Advance Directive(s) 08/28/2015 9:03 PM Date Activated Date Inactivated Comments 03/07/2023 4:44 AM 03/09/2023 7:53 PM Date Activated Date Inactivated Comments 03/24/2022 3:23 PM 03/26/2022 7:51 PM Latest Code Status on File Code Status Date Activated Date Inactivated Comments Full Code 03/24/2022 3:23 PM 03/26/2022 7:51 PM Full Code Order Discussed With: Patient Documents on File Type Date Recorded 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 Advance Directive(s) Advance Directive(s) 05/19/2020 10:04 PM Advance Directive(s) 03/11/2017 1:34 PM Advance Directive(s) 12/10/2016 5:24 PM Advance Directive(s) 04/17/2016 11:22 AM Advance Directive(s) 08/28/2015 9:03 PM Documents on File Type Date Recorded 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 Advance Directive(s) Advance Directive(s) 03/23/2022 11:09 PM Advance Directive(s) 05/19/2020 10:04 PM Advance Directive(s) 03/11/2017 1:34 PM Advance Directive(s) 12/10/2016 5:24 PM Advance Directive(s) 04/17/2016 11:22 AM Advance Directive(s) 08/28/2015 9:03 PM Latest Code Status on File Code Status Date Activated Date Inactivated Comments Full Code 03/24/2022 3:23 PM Documents on File Type Date Recorded 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 Advance Directive(s) Advance Directive(s) 03/27/2022 12:20 AM Advance Directive(s) 03/23/2022 11:09 PM Advance Directive(s) 05/19/2020 10:04 PM Advance Directive(s) 03/11/2017 1:34 PM Advance Directive(s) 12/10/2016 5:24 PM Advance Directive(s) 04/17/2016 11:22 AM Advance Directive(s) 08/28/2015 9:03 PM Documents on File Type Date Recorded 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 Advance Directive(s) 08/28/2015 9:03 PM [...] diabetic retinopathy Procedures CONSULT TO OPHTHALMOLOGY OFFICE/OUTPATIENT [facility] MDM 60-[place] [address] [place] [phone] Referral ID Status Reason Start Date Expiration Date Visits Requested Visits Authorized [id number] Pending Review PCP Requested Referral 10/23/2023 1 1 Specialty Diagnoses / Procedures Referred By Contac t Referred To Contact [facility] Diagnoses Muscular deconditioning Procedures CONSULT TO PHYSICAL THERAPY PHYSICAL THERAPY EVALUATION HIGH COMPLEX 45 MINS 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 [address] [place] [address] [facility] [address] [address] Referral ID Status Reason Start Date Expiration Date Visits Requested Visits Authorized [id number] Pending Review Auto-Generat ed Referral 03/17/2023 03/16/2024 1 1 Specialty Diagnoses / Procedures Referred By Contac t Referred To Contact Diagnoses Leukocytosis, unspecified type Procedures CONSULT TO HEMATOLOGY/ONCOLOGY OFFICE/OUTPATIENT [facility] MDM 60 [place] [address] [place] [address] Referral ID Status Reason Start Date Expiration Date Visits Requested Visits Authorized [id number] Authorized PCP Requested Referral 09/04/2025 1 1 Specialty Diagnoses / Procedures Referred By Contac t Referred To Contact Orthopedics Diagnoses Right ankle swelling Closed nondisplaced fracture of right calcaneus, unspecified portion of calcaneus, initial encounter Procedures CONSULT PANEL TO ORTHOPAEDICS OFFICE/OUTPATIENT [facility] [place] [address] [address] [place] [phone] Referral ID Status Reason Start Date Expiration Date Visits Requested Visits Authorized [id number] Authorized PCP Requested Referral 09/18/2024 09/18/2025 1 1 Specialty Diagnoses / Procedures Referred By Contac t Referred To Contact MR IMAGING Diagnoses Chronic pain of right ankle Procedures MRI ANKLE WO IVCON RIGHT MRI ANY JT LOWER EXTREM W/O CONTRAST MATRL Simone Kevin MD [address] [place] [address] Mr [facility] [place] [address] Referral ID Status Reason Start Date Expiration Date Visits Requested Visits Authorized [id number] Authorized Auto-Generat ed Referral 12/01/2025 1 1 Specialty Diagnoses / Procedures Referred By Contac t Referred To Contact XR IMAGING Diagnoses Right ankle swelling Procedures XR FOOT GENERAL 3V AP/LAT/OBL RIGHT RADEX FOOT COMPLETE MINIMUM 3 VIEWS Simone Kevin MD [address] [place] [address] X[facility] [place] [address] Referral ID Status Reason Start Date Expiration Date V isits Requested Visits Authorized [id number] Closed Auto-Generate d Referral 11/01/2024 12/01/2025 1 1 Specialty Diagnoses / Procedures Referred By Contac t Referred To Contact XR IMAGING Diagnoses Right ankle swelling Procedures XR ANKLE GENERAL 3V AP/LAT/OBL RIGHT RADEX ANKLE COMPLETE MINIMUM 3 VIEWS Simone Kevin MD [address] [place] [address] [place] [address] Referral ID Status Reason Start Date Expiration Date V isits Requested Visits Authorized [id number] Closed Auto-Generate d Referral 11/01/2024 12/01/2025 1 1 Referral ID Status Reason Start Date Expiration Date V isits Requested Visits Authorized [id number] Closed Auto-Generate d Referral 11/01/2024 12/01/2025 1 [...] section and content) DATE CREATED AUTHOR 12/10/2021 [facility] DATE CREATED AUTHOR AUTHOR'S ORGANIZ ATION 02/12/2025 [facility] DATE CREATED AUTHOR AUTHOR'S ORGANIZ ATION 02/16/2025 [facility] DATE CREATED AUTHOR AUTHOR'S ORGANIZ ATION 04/26/2025 [facility] Source Comments (unrecognize d section and content) In the event this informatio n is protected by the Federal Confidentiality of Alcohol and Drug Abuse Patient Records regulations: The Federal rules restrict any use of the information to criminally investigate or prosecute any alcohol or drug abuse patient.[facility] the event this information is protected by the Federal Confidentiality of Alcohol and Drug Abuse Patient Records regulations: The Federal rules restrict any use of the information to criminally investigate or prosecute any alcohol or drug abuse patient.[facility] CenterIn the event this information is protected by the Federal Confidentiality of Alcohol and Drug Abuse Patient Records regulations: The Federal rules restrict any use of the information to criminally investigate or prosecute any alcohol or drug abuse patient.[facility] CenterIn the event this information is protected by the Federal Confidentiality of Alcohol and Drug Abuse Patient Records regulations: The Federal rules restrict any use of the information to criminally investigate or prosecute any alcohol or drug abuse patient.[facility] CenterIn the event this information is protected by the Federal Confidentiality of Alcohol and Drug Abuse Patient Records regulations: The Federal rules restrict any use of the information to criminally investigate or prosecute any alcohol or drug abuse patient.[facility] CenterIn the event this information is protected by the Federal Confidentiality of Alcohol and Drug Abuse Patient Records regulations: The Federal rules restrict any use of the information to criminally investigate or prosecute any alcohol or drug abuse patient.[facility] CenterIn the event this information is protected by the Federal Confidentiality of Alcohol and Drug Abuse Patient Records regulations: The Federal rules restrict any use of the information to criminally investigate or prosecute any alcohol or drug abuse patient.[facility] CenterIn the event this information is protected by the Federal Confidentiality of Alcohol and Drug Abuse Patient Records regulations: The Federal rules restrict any use of the information to criminally investigate or prosecute any alcohol or drug abuse patient.[facility] CenterIn the event this information is protected by the Federal Confidentiality of Alcohol and Drug Abuse Patient Records regulations: The Federal rules restrict any use of the information to criminally investigate or prosecute any alcohol or drug abuse patient.[facility] CenterIn the event this information is protected by the Federal Confidentiality of Alcohol and Drug Abuse Patient Records regulations: The Federal rules restrict any use of the information to criminally investigate or prosecute any alcohol or drug abuse patient.[facility] CenterIn the event this information is protected by the Federal Confidentiality of Alcohol and Drug Abuse Patient Records regulations: The Federal rules restrict any use of the information to criminally investigate or prosecute any alcohol or drug abuse patient.[facility] CenterIn the event this information is protected by the Federal Confidentiality of Alcohol and Drug Abuse Patient Records regulations: The Federal rules restrict any use of the information to criminally investigate or prosecute any alcohol or drug abuse patient.[facility] CenterIn the event this information is protected by the Federal Confidentiality of Alcohol and Drug Abuse Patient Records regulations: The Federal rules restrict any use of the information to criminally investigate or prosecute any alcohol or drug abuse patient.[facility] CenterIn the event this information is protected by the Federal Confidentiality of Alcohol and Drug Abuse Patient Records regulations: The Federal rules restrict any use of the information to criminally investigate or prosecute any alcohol or drug abuse patient.[facility] CenterIn the event this information is protected by [...] or prosecute any alcohol or drug abuse patient.[facility] CenterIn the event this information is protected by the Federal Confidentiality of Alcohol and Drug Abuse Patient Records regulations: The Federal rules restrict any use of the information to criminally investigate or prosecute any alcohol or drug abuse patient.[facility] CenterIn the event this information is protected by the Federal Confidentiality of Alcohol and Drug Abuse Patient Records regulations: The Federal rules restrict any use of the information to criminally investigate or prosecute any alcohol or drug abuse patient.[facility] CenterIn the event this information is protected by the Federal Confidentiality of Alcohol and Drug Abuse Patient Records regulations: The Federal rules restrict any use of the information to criminally investigate or prosecute any alcohol or drug abuse patient.[facility] CenterIn the event this information is protected by the Federal Confidentiality of Alcohol and Drug Abuse Patient Records regulations: The Federal rules restrict any use of the information to criminally investigate or prosecute any alcohol or drug abuse patient.[facility] CenterIn the event this information is protected by the Federal Confidentiality of Alcohol and Drug Abuse Patient Records regulations: The Federal rules restrict any use of the information to criminally investigate or prosecute any alcohol or drug abuse patient.[facility] CenterIn the event this information is protected by the Federal Confidentiality of Alcohol and Drug Abuse Patient Records regulations: The Federal rules restrict any use of the information to criminally investigate or prosecute any alcohol or drug abuse patient.[facility] CenterIn the event this information is protected by the Federal Confidentiality of Alcohol and Drug Abuse Patient Records regulations: The Federal rules restrict any use of the information to criminally investigate or prosecute any alcohol or drug abuse patient.[facility] CenterIn the event this information is protected by the Federal Confidentiality of Alcohol and Drug Abuse Patient Records regulations: The Federal rules restrict any use of the information to criminally investigate or prosecute any alcohol or drug abuse patient.[facility] CenterIn the event this information is protected by the Federal Confidentiality of Alcohol and Drug Abuse Patient Records regulations: The Federal rules restrict any use of the information to criminally investigate or prosecute any alcohol or drug abuse patient.[facility] CenterIn the event this information is protected by the Federal Confidentiality of Alcohol and Drug Abuse Patient Records regulations: The Federal rules restrict any use of the information to criminally investigate or prosecute any alcohol or drug abuse patient.[facility] CenterIn the event this information is protected by the Federal Confidentiality of Alcohol and Drug Abuse Patient Records regulations: The Federal rules restrict any use of the information to criminally investigate or prosecute any alcohol or drug abuse patient.[facility] CenterIn the event this information is protected by the Federal Confidentiality of Alcohol and Drug Abuse Patient Records regulations: The Federal rules restrict any use of the information to criminally investigate or prosecute any alcohol or drug abuse patient.[facility] CenterIn the event this information is protected by the Federal Confidentiality of Alcohol and Drug Abuse Patient Records regulations: The Federal rules restrict any use of the information to criminally investigate or prosecute any alcohol or drug abuse patient.[facility] CenterIn the event this information is protected by the Federal Confidentiality of Alcohol and Drug Abuse Patient Records regulations: The Federal rules restrict any use of the information to criminally investigate or prosecute any alcohol or drug abuse patient.[facility] CenterIn the event this information is protected by the Federal Confidentiality of Alcohol and Drug Abuse Patient Records regulations: The Federal rules restrict any use of the information to criminally investigate or prosecute any alcohol or drug abuse patient.[facility] CenterIn the event this information is protected by the Federal Confidentiality of Alcohol and Drug Abuse Patient Records regulations: The Federal rules restrict any use of the information to criminally investigate or prosecute any alcohol or drug abuse patient.[facility] CenterIn the event this information is protected by the Federal Confidentiality of Alcohol and Drug Abuse Patient Records regulations: The Federal rules restrict any use of the information to criminally investigate or prosecute any alcohol or drug abuse patient.[facility] CenterIn the event this information is protected by the Federal Confidentiality of Alcohol and Drug Abuse Patient Records regulations: The Federal rules restrict any use of the information to criminally investigate or prosecute any alcohol or drug abuse patient.[facility] CenterIn the event this information is protected by the Federal Confidentiality of Alcohol and Drug Abuse Patient Records regulations: The Federal rules restrict any use of the information to criminally investigate or prosecute any alcohol or drug abuse patient.[facility] CenterIn the event this information is protected by the Federal Confidentiality of Alcohol and Drug Abuse Patient Records regulations: The Federal rules restrict any use of the information to criminally investigate or prosecute any alcohol or drug abuse patient.[facility] CenterIn the event this information is protected by the Federal Confidentiality of Alcohol and Drug Abuse Patient Records regulations: The Federal rules restrict any use of the information to criminally investigate or prosecute any alcohol or drug abuse patient.[facility] CenterIn the event this information is protected by the Federal Confidentiality of Alcohol and Drug Abuse Patient Records regulations: The Federal rules restrict any use of the information to criminally investigate or prosecute any alcohol or drug abuse patient.[facility] CenterIn the event this information is protected by the Federal Confidentiality of Alcohol and Drug Abuse Patient Records regulations: The Federal rules restrict any use of the information to criminally investigate or prosecute any alcohol or drug abuse patient.[facility] CenterIn the event this information is protected by the Federal Confidentiality of Alcohol and Drug Abuse Patient Records regulations: The Federal rules restrict any use of the information to criminally investigate or prosecute any alcohol or drug abuse patient.[facility] CenterIn the event this information is protected by the Federal Confidentiality of Alcohol and Drug Abuse Patient Records regulations: The Federal rules restrict any use of the information to criminally investigate or prosecute any alcohol or drug abuse patient.[facility] CenterIn the event this information is protected by the Federal Confidentiality of Alcohol and Drug Abuse Patient Records regulations: The Federal rules restrict any use of the information to criminally investigate or prosecute any alcohol or drug abuse patient.[facility] CenterIn the event this information is protected by the Federal Confidentiality of Alcohol and Drug Abuse Patient Records regulations: The Federal rules restrict any use of the information to criminally investigate or prosecute any alcohol or drug abuse patient.[facility] CenterIn the event this information is protected by the Federal Confidentiality of Alcohol and Drug Abuse Patient Records regulations: The Federal rules restrict any use of the information to criminally investigate or prosecute any alcohol or drug abuse patient.[facility] CenterIn the event this information is protected by the Federal Confidentiality of Alcohol and Drug Abuse Patient Records regulations: The Federal rules restrict any use of the information to criminally investigate or prosecute any alcohol or drug abuse patient.[facility] CenterIn the event this information is protected by the Federal Confidentiality of Alcohol and Drug Abuse Patient Records regulations: The Federal rules restrict any use of the information to criminally investigate or prosecute any alcohol or drug abuse patient.[facility] CenterIn the event this information is protected by the Federal Confidentiality of Alcohol and Drug Abuse Patient Records regulations: The Federal rules restrict any use of the information to criminally investigate or prosecute any alcohol or drug abuse patient.[facility] CenterIn the event this information is protected by the Federal Confidentiality of Alcohol and Drug Abuse Patient Records regulations: The Federal rules restrict any use of the information to criminally investigate or prosecute any alcohol or drug abuse patient.[facility] CenterIn the event this information is protected by the Federal Confidentiality of Alcohol and Drug Abuse Patient Records regulations: The Federal rules restrict any use of the information to criminally investigate or prosecute any alcohol or drug abuse patient.[facility] CenterIn the event this information is protected by the Federal Confidentiality of Alcohol and Drug Abuse Patient Records regulations: The Federal rules restrict any use of the information to criminally investigate or prosecute any alcohol or drug abuse patient.[facility] CenterIn the event this information is protected by the Federal Confidentiality of Alcohol and Drug Abuse Patient Records regulations: The Federal rules restrict any use of the information to criminally investigate or prosecute any alcohol or drug abuse patient.[facility] CenterIn the event this information is protected by the Federal Confidentiality of Alcohol and Drug Abuse Patient Records regulations: The Federal rules restrict any use of the information to criminally investigate or prosecute any alcohol or drug abuse patient.[facility] CenterIn the event this information is protected by the Federal Confidentiality of Alcohol and Drug Abuse Patient Records regulations: The Federal rules restrict any use of the information to criminally investigate or prosecute any alcohol or drug abuse patient.[facility] CenterIn the event this information is protected by the Federal Confidentiality of Alcohol and Drug Abuse Patient Records regulations: The Federal rules restrict any use of the information to criminally investigate or prosecute any alcohol or drug abuse patient.[facility] CenterIn the event this information is protected by the Federal Confidentiality of Alcohol and Drug Abuse Patient Records regulations: The Federal rules restrict any use of the information to criminally investigate or prosecute any alcohol or drug abuse patient.[facility] CenterIn the event this information is protected by the Federal Confidentiality of Alcohol and Drug Abuse Patient Records regulations: The Federal rules restrict any use of the information to criminally investigate or prosecute any alcohol or drug abuse patient.[facility] CenterIn the event this information is protected by the Federal Confidentiality of Alcohol and Drug Abuse Patient Records regulations: The Federal rules restrict any use of the information to criminally investigate or prosecute any alcohol or drug abuse patient.[facility] CenterIn the event this information is protected by the Federal Confidentiality of Alcohol and Drug Abuse Patient Records regulations: The Federal rules restrict any use of the information to criminally investigate or prosecute any alcohol or drug abuse patient.[facility] CenterIn the event this information is protected by the Federal Confidentiality of Alcohol and Drug Abuse Patient Records regulations: The Federal rules restrict any use of the information to criminally investigate or prosecute any alcohol or drug abuse patient.[facility] CenterIn the event this information is protected by the Federal Confidentiality of Alcohol and Drug Abuse Patient Records regulations: The Federal rules restrict any use of the information to criminally investigate or prosecute any alcohol or drug abuse patient.[facility] CenterIn the event this information is protected by the Federal Confidentiality of Alcohol and Drug Abuse Patient Records regulations: The Federal rules restrict any use of the information to criminally investigate or prosecute any alcohol or drug abuse patient.[facility] CenterIn the event this information is protected by the Federal Confidentiality of Alcohol and Drug Abuse Patient Records regulations: The Federal rules restrict any use of the information to criminally investigate or prosecute any alcohol or drug abuse patient.[facility] CenterIn the event this information is protected by the Federal Confidentiality of Alcohol and Drug Abuse Patient Records regulations: The Federal rules restrict any use of the information to criminally investigate or prosecute any alcohol or drug abuse patient.[facility] CenterIn the event this information is protected by the Federal Confidentiality of Alcohol and Drug Abuse Patient Records regulations: The Federal rules restrict any use of the information to criminally investigate or prosecute any alcohol or drug abuse patient.[facility] CenterIn the event this information is protected by [...] or prosecute any alcohol or drug abuse patient.[facility] CenterIn the event this information is protected by the Federal Confidentiality of Alcohol and Drug Abuse Patient Records regulations: The Federal rules restrict any use of the information to criminally investigate or prosecute any alcohol or drug abuse patient.[facility] CenterIn the event this information is protected by the Federal Confidentiality of Alcohol and Drug Abuse Patient Records regulations: The Federal rules restrict any use of the information to criminally investigate or prosecute any alcohol or drug abuse patient.[facility] CenterIn the event this information is protected by the Federal Confidentiality of Alcohol and Drug Abuse Patient Records regulations: The Federal rules restrict any use of the information to criminally investigate or prosecute any alcohol or drug abuse patient.[facility] CenterIn the event this information is protected by the Federal Confidentiality of Alcohol and Drug Abuse Patient Records regulations: The Federal rules restrict any use of the information to criminally investigate or prosecute any alcohol or drug abuse patient.[facility] CenterIn the event this information is protected by the Federal Confidentiality of Alcohol and Drug Abuse Patient Records regulations: The Federal rules restrict any use of the information to criminally investigate or prosecute any alcohol or drug abuse patient.[facility] CenterIn the event this information is protected by the Federal Confidentiality of Alcohol and Drug Abuse Patient Records regulations: The Federal rules restrict any use of the information to criminally investigate or prosecute any alcohol or drug abuse patient.[facility] CenterIn the event this information is protected by the Federal Confidentiality of Alcohol and Drug Abuse Patient Records regulations: The Federal rules restrict any use of the information to criminally investigate or prosecute any alcohol or drug abuse patient.[facility] CenterIn the event this information is protected by the Federal Confidentiality of Alcohol and Drug Abuse Patient Records regulations: The Federal rules restrict any use of the information to criminally investigate or prosecute any alcohol or drug abuse patient.[facility] CenterIn the event this information is protected by the Federal Confidentiality of Alcohol and Drug Abuse Patient Records regulations: The Federal rules restrict any use of the information to criminally investigate or prosecute any alcohol or drug abuse patient.[facility] CenterIn the event this information is protected by the Federal Confidentiality of Alcohol and Drug Abuse Patient Records regulations: The Federal rules restrict any use of the information to criminally investigate or prosecute any alcohol or drug abuse patient.[facility] CenterIn the event this information is protected by the Federal Confidentiality of Alcohol and Drug Abuse Patient Records regulations: The Federal rules restrict any use of the information to criminally investigate or prosecute any alcohol or drug abuse patient.[facility] CenterIn the event this information is protected by the Federal Confidentiality of Alcohol and Drug Abuse Patient Records regulations: The Federal rules restrict any use of the information to criminally investigate or prosecute any alcohol or drug abuse patient.[facility] CenterIn the event this information is protected by the Federal Confidentiality of Alcohol and Drug Abuse Patient Records regulations: The Federal rules restrict any use of the information to criminally investigate or prosecute any alcohol or drug abuse patient.[facility] CenterIn the event this information is protected by the Federal Confidentiality of Alcohol and Drug Abuse Patient Records regulations: The Federal rules restrict any use of the information to criminally investigate or prosecute any alcohol or drug abuse patient.[facility] CenterIn the event this information is protected by the Federal Confidentiality of Alcohol and Drug Abuse Patient Records regulations: The Federal rules restrict any use of the information to criminally investigate or prosecute any alcohol or drug abuse patient.[facility] CenterIn the event this information is protected by the Federal Confidentiality of Alcohol and Drug Abuse Patient Records regulations: The Federal rules restrict any use of the information to criminally investigate or prosecute any alcohol or drug abuse patient.[facility] CenterIn the event this information is protected by the Federal Confidentiality of Alcohol and Drug Abuse Patient Records regulations: The Federal rules restrict any use of the information to criminally investigate or prosecute any alcohol or drug abuse patient.[facility] CenterIn the event this information is protected by the Federal Confidentiality of Alcohol and Drug Abuse Patient Records regulations: The Federal rules restrict any use of the information to criminally investigate or prosecute any alcohol or drug abuse patient.[facility] CenterIn the event this information is protected by the Federal Confidentiality of Alcohol and Drug Abuse Patient Records regulations: The Federal rules restrict any use of the information to criminally investigate or prosecute any alcohol or drug abuse patient.[facility] CenterIn the event this information is protected by the Federal Confidentiality of Alcohol and Drug Abuse Patient Records regulations: The Federal rules restrict any use of the information to criminally investigate or prosecute any alcohol or drug abuse patient.[facility] CenterIn the event this information is protected by the Federal Confidentiality of Alcohol and Drug Abuse Patient Records regulations: The Federal rules restrict any use of the information to criminally investigate or prosecute any alcohol or drug abuse patient.[facility] CenterIn the event this information is protected by the Federal Confidentiality of Alcohol and Drug Abuse Patient Records regulations: The Federal rules restrict any use of the information to criminally investigate or prosecute any alcohol or drug abuse patient.[facility] CenterIn the event this information is protected by the Federal Confidentiality of Alcohol and Drug Abuse Patient Records regulations: The Federal rules restrict any use of the information to criminally investigate or prosecute any alcohol or drug abuse patient.[facility] Reason for Visit (unrecogniz ed section and [...] Date Comments Population Health Navigation Outreach 03/13/2024 [facility] [place] [facility] Reason Comments Diabetic Eye Exam Reason Comments Follow Up Reason Onset Date Comments Fatigue 08/13/2024 Reason Comments Hospital Follow Up Reason Comments Radiology XR Specialty Diagnoses / Procedures Referred By Contac t Referred To Contact XR IMAGING Diagnoses Pain Procedures XR SHOULDER GENERAL 3V OR MORE AP/TRUE AP/OTHER LT X-RAY SHOULDER COMPLET [place] 2 [place] [address] [place] [address] [place] [address] Referral ID Status Reason Start Date Expiration Date V isits Requested Visits Authorized [id number] Closed Auto-Generate d Referral 07/09/2021 08/08/2022 1 1 Reason Comments Results Reason Comments Radio Gen RMP Radiology Service Pr ogress NotePATIENT NAME: Yusuf MedinaMRN: [id number] OF SERVICE: September 17, 2024TIME: 4:30 PMPATIENT [...] COMPLETE MINIMUM 3 [place] [address] [place] [id number] Xr Imaging [facility] Referral ID Status Reason Start Date Expiration Date V isits Requested Visits Authorized [id number] Closed Auto-Generate d Referral 09/17/2024 10/17/2025 1 1 Reason Comments Results Suspicion for calcan eal bone fracture Reason Comments Radiology US Specialty Diagnoses / Procedures Referred By Contac t Referred To Contact US IMAGING Diagnoses Right ankle swelling Procedures US DVT LOWER RIGHT DUP-SCAN XTR VEINS UNILATERAL/[place] [address] [place] [address] Us Imaging [facility] Referral ID Status Reason Start Date Expiration Date V isits Requested Visits Authorized [id number] Closed Auto-Generate d Referral 09/18/2024 10/17/2025 1 1 Reason Comments New 8/10 PAIN CONSTANT A ABEL Pain 8/10 PAIN CONSTANT A ABEL Specialty Diagnoses / Procedures Referred By Contac t Referred To Contact Orthopedics / ORTHOPAEDIC SURGERY Diagnoses Right ankle swelling Closed nondisplaced fracture of right calcaneus, unspecified portion of calcaneus, initial encounter Procedures CONSULT PANEL TO ORTHOPAEDICS OFFICE/OUTPATIENT [facility] [address] [place] [address] [place] [address] Orth [facility] [address] [place] [address] Referral ID Status Reason Start Date Expiration Date V isits Requested Visits Authorized [id number] Closed PCP Requested Referral 09/18/2024 09/18/2025 1 1 Reason Comments Consult leukocytosis Specialty Diagnoses / Procedures Referred By Contac t Referred To Contact Diagnoses Leukocytosis, unspecified type Procedures CONSULT TO HEMATOLOGY/ONCOLOGY OFFICE/OUTPATIENT [facility] [address] [place] [address] [place] [address] Referral ID Status Reason Start Date Expiration Date V isits Requested Visits Authorized [id number] Closed PCP Requested Referral 09/04/2024 09/04/2025 1 1 Reason Comments Medicare Wellness Exam Reason Comments Follow Up Reason Comments Radio Gen RMP Radiology Service Pr ogress NotePATIENT NAME: Yusuf MedinaMRN: [id number] OF SERVICE: November 01, 2024TIME: 2:15 PMPATIENT [...] COMPLETE MINIMUM 3 VIEWS Simone Kevin MD [address] [place] [address] Xr Imaging [facility] Referral ID Status Reason Start Date Expiration Date V isits Requested Visits Authorized [id number] Closed Auto-Generate d Referral 11/01/2024 12/01/2025 1 1 Reason Comments infection on ankle Right ankle looks in fected Specialty Diagnoses / Procedures Referred By Contac t Referred To Contact MR IMAGING Diagnoses Chronic pain of right ankle Procedures MRI ANKLE WO IVCON RIGHT MRI ANY JT LOWER EXTREM W/O CONTRAST Simone Galindo MD [address] [place] [address] Mr Imaging [place] [address] Referral ID Status Reason Start Date Expiration Date V isits Requested Visits Authorized [id number] Closed Auto-Generate d Referral 11/01/2024 12/01/2025 1 [...] Care Teams (unrecognized sec tion and content) Strategic Sourcing Consultant Relationship Specialty [place] [address] [place] [address] PCP - General Family Practice 10/05/10 Edenilson Townsend [address] [place] [address] Consulting Optometry 12/07/17 Strategic Sourcing Consultant Relationship Specialty [place] [address] [place] [address] PCP - General Family Practice 10/05/10 Edenilson Townsend [address] [place] [address] Consulting Optometry 12/07/17 Strategic Sourcing Consultant Relationship Specialty [place] [address] [place] [address] PCP - General Family Practice 10/05/10 Edenilson Townsend [address] [place] [address] Consulting Optometry 12/07/17 Strategic Sourcing Consultant Relationship Specialty [place] [address] [place] [address] PCP - General Family Practice 10/05/10 Edenilson Townsend [address] [facility] [place] [address] Consulting Optometry 12/07/17 José Miguel Swanson, [facility] [address] [place] [address] Transitional Care Pharmacist Pharmacy 03/30/22 04/30/22 Katia Farooq, upholstery instructor Seals Engraver 03/30/22 04/29/22 Strategic Sourcing Consultant Relationship Specialty [place] [address] [place] [address] PCP - General Family Practice 10/05/10 Edenilson Townsend [address] [facility] [place] [address] Consulting Optometry 12/07/17 José Miguel Swanson, [facility] [address] [place] [address] Transitional Care Pharmacist Pharmacy 03/30/22 04/30/22 Katia Farooq, upholstery instructor [employer]als Engraver 03/30/22 04/29/22 Strategic Sourcing Consultant Relationship Specialty [place] [address] [place] [address] PCP - General Family Practice 10/05/10 Edenilson Townsend [address] [facility] [place] [address] Consulting Optometry 12/07/17 José Miguel Swanson, [facility] [address] [place] [address] Transitional Care Pharmacist Pharmacy 03/30/22 04/30/22 Katia Farooq, upholstery instructor Seals Engraver 03/30/22 04/29/22 Strategic Sourcing Consultant Relationship Specialty [place] [address] [place] [address] PCP - General Family Practice 10/05/10 Edenilson Townsend [address] [place] [address] Consulting Optometry 12/07/17 [facility] [address] [place] [address] Transitional Care Pharmacist Pharmacy 03/30/22 04/30/22 Katia Farooq, upholstery instructor Seals Engraver 03/30/22 04/29/22 Strategic Sourcing Consultant Relationship Specialty [place] [address] [place] [address] PCP - General Family Practice 10/05/10 Edenilson Townsend [address] [place] [address] Consulting Optometry 12/07/17 [facility] [address] [place] [address] Transitional Care Pharmacist Pharmacy 03/30/22 04/30/22 Katia Farooq, upholstery instructor Seals Engraver 03/30/22 04/29/22 Strategic Sourcing Consultant Relationship Specialty [place] [address] [place] [address] PCP - General Family Practice 10/05/10 Edenilson Townsend [address] [place] [address] Consulting Optometry 12/07/17 Strategic Sourcing Consultant Relationship Specialty [place] [address] [place] [address] PCP - General Family Practice 10/05/10 Edenilson Townsend [address] [place] [address] Consulting Optometry 12/07/17 Strategic Sourcing Consultant Relationship Specialty [place] [address] [place] [address] PCP - General Family Practice 10/05/10 Edenilson Townsend [address] [facility] [place] [address] Consulting Optometry 12/07/17 Strategic Sourcing Consultant Relationship Specialty [place] [address] [place] [address] PCP - General Family Medicine 10/05/10 Edenilson Townsend [address] [facility] [place] [address] Consulting Optometry 12/07/17 Strategic Sourcing Consultant Relationship Specialty [place] [address] [place] [address] PCP - General Family Medicine 10/05/10 Edenilson Townsend [address] [place] [address] Consulting Optometry 12/07/17 Strategic Sourcing Consultant Relationship Specialty [place] [address] [place] [address] PCP - General Family Medicine 10/05/10 Edenilson Townsend [address] [place] [address] Consulting Optometry 12/07/17 Strategic Sourcing Consultant Relationship Specialty [place] [address] [place] [address] PCP - General Family Medicine 10/05/10 Edenilson Townsend [address] [facility] [place] [address] Consulting Optometry 12/07/17 Strategic Sourcing Consultant Relationship Specialty [place] [address] [place] [address] PCP - General Family Medicine 10/05/10 Edenilson Townsend [address] [facility] [place] [address] Consulting Optometry 12/07/17 [place] [address] [place] [address] Primary Care Seals Engraver 03/10/23 04/08/23 Strategic Sourcing Consultant Relationship Specialty [place] [address] [place] [address] PCP - General Family Medicine 10/05/10 Edenilson Townsend [address] [facility] [place] [address] Consulting Optometry 12/07/17 [place] [address] [place] [address] Primary Care Seals Engraver 03/10/23 04/08/23 Strategic Sourcing Consultant Relationship Specialty [place] [address] [place] [address] PCP - General Family Medicine 10/05/10 Edenilson Townsend [address] [facility] [place] [address] Consulting Optometry 12/07/17 [place] [address] [place] [address] Primary Care Seals Engraver 03/10/23 04/08/23 Strategic Sourcing Consultant Relationship Specialty [place] [address] [place] [address] PCP - General Family Medicine 10/05/10 Edenilson Townsend [address] [facility] [place] [address] Consulting Optometry 12/07/17 [place] [address] [place] [address] Primary Care Seals Engraver 03/10/23 04/08/23 Strategic Sourcing Consultant Relationship Specialty [place] [address] [place] [address] PCP - General Family Medicine 10/05/10 Edenilson Townsend [address] [facility] [place] [address] Consulting Optometry 12/07/17 Strategic Sourcing Consultant Relationship Specialty Start [place] [address] [place] [address] PCP - General Family Medicine 10/05/10 Edenilson Townsend [address] [facility] [place] [address] Consulting Optometry 12/07/17 Strategic Sourcing Consultant Relationship Specialty [place] [address] [place] [address] PCP - General Family Medicine 10/05/10 Edenilson Townsend [address] [facility] [place] [address] Consulting Optometry 12/07/17 Strategic Sourcing Consultant Relationship Specialty [place] [address] [place] [address] PCP - General Family Medicine 10/05/10 Edenilson Townsend [address] [facility] [place] [address] Consulting Optometry 12/07/17 Strategic Sourcing Consultant Relationship Specialty Start [place] [address] [place] [address] PCP - General Family Medicine 10/05/10 Edenilson Townsend [address] [facility] [place] [address] Consulting Optometry 12/07/17 Strategic Sourcing Consultant Relationship Specialty Start [place] [address] [place] [address] PCP - General Family Medicine 10/05/10 Edenilson Townsend [address] [place] [address] Consulting Optometry 12/07/17 Strategic Sourcing Consultant Relationship Specialty [place] [address] [place] [address] PCP - General Family Medicine 10/05/10 Edenilson Townsend [address] [place] [address] Consulting Optometry 12/07/17 Strategic Sourcing Consultant Relationship Specialty Start [place] [address] [place] [address] PCP - General Family Medicine 10/05/10 Edenilson Townsend [address] [place] [address] Consulting Optometry 12/07/17 Strategic Sourcing Consultant Relationship Specialty [place] [address] [place] [address] PCP - General Family Medicine 10/05/10 Edenilson Townsend OD [address] [place] [address] Consulting Optometry 12/07/17 Strategic Sourcing Consultant Relationship Specialty [place] [address] [place] [address] PCP - General Family Medicine 10/05/10 Edenilson Townsend [address] [place] [address] Consulting Optometry 12/07/17 Strategic Sourcing Consultant Relationship Specialty Start [place] [address] [place] [address] PCP - General Family Medicine 10/05/10 Edenilson Townsend [address] [place] [address] Consulting Optometry 12/07/17 Strategic Sourcing Consultant Relationship Specialty Start [place] [address] [place] [address] PCP - General Family Medicine 10/05/10 Edenilson Townsend [address] [place] [address] Consulting Optometry 12/07/17 Strategic Sourcing Consultant Relationship Specialty Start [place] [address] [place] [address] PCP - General Family Medicine 10/05/10 Edenilson Townsend OD [address] [facility] [place] [address] Consulting Optometry 12/07/17 Strategic Sourcing Consultant Relationship Specialty Start [place] [address] [place] [address] PCP - General Family Medicine 10/05/10 Edenilson Townsend, OD [address] [facility] [place] [address] Consulting Optometry 12/07/17 Strategic Sourcing Consultant Relationship Specialty Start [place] [address] [place] [address] PCP - General Family Medicine 10/05/10 Edenilson Townsend, OD [address] [facility] [place] [address] Consulting Optometry 12/07/17 Strategic Sourcing Consultant Relationship Specialty [place] [address] [place] [address] PCP - General Family Medicine 10/05/10 Edenilson Townsend, OD [address] [place] [address] Consulting Optometry 12/07/17 Strategic Sourcing Consultant Relationship Specialty [place] [address] [place] [address] PCP - General Family Medicine 10/05/10 Edenilson Townsend, OD [address] [place] [address] Consulting Optometry 12/07/17 Strategic Sourcing Consultant Relationship Specialty [place] [address] [place] [address] PCP - General Family Medicine 10/05/10 Edenilson Townsend OD [address] [place] [address] Consulting Optometry 12/07/17 Strategic Sourcing Consultant Relationship Specialty [place] [address] [place] [address] PCP - General Family Medicine 10/05/10 Edenilson Townsend OD [address] [place] [address] Consulting Optometry 12/07/17 Strategic Sourcing Consultant Relationship Specialty [place] [address] [place] [address] PCP - General Family Medicine 10/05/10 Edenilson Townsend OD [address] [place] [address] Consulting Optometry 12/07/17 Strategic Sourcing Consultant Relationship Specialty [place] [address] [place] [address] PCP - General Family Medicine 10/05/10 Edenilson Townsend OD [address] [place] [address] Consulting Optometry 12/07/17 Strategic Sourcing Consultant Relationship Specialty [place] [address] [place] [address] PCP - General Family Medicine 10/05/10 Edenilson Townsend OD [address] [facility] [place] [address] Consulting Optometry 12/07/17 Strategic Sourcing Consultant Relationship Specialty [place] [address] [place] [address] PCP - General Family Medicine 10/05/10 Edenilson Townsend OD [address] [facility] [place] [address] Consulting Optometry 12/07/17 Strategic Sourcing Consultant Relationship Specialty [place] [address] [place] [address] PCP - General Family Medicine 10/05/10 Edenilson Townsend OD [address] [facility] [place] [address] Consulting Optometry 12/07/17 Strategic Sourcing Consultant Relationship Specialty [place] [address] [place] [address] PCP - General Family Medicine 10/05/10 Edenilson Townsend OD [address] [facility] [place] [address] Consulting Optometry 12/07/17 Strategic Sourcing Consultant Relationship Specialty [place] [address] [place] [address] PCP - General Family Medicine 10/05/10 Edenilson Townsend OD [address] [facility] [place] [address] Consulting Optometry 12/07/17 Cinthia Ponce DEFENSIVE LINE COACH.CELL ROOM SUPERVISOR [address] [place] [address] Apron Worker Family Medicine 10/21/24 Willie Kaur APRN.CELL ROOM SUPERVISOR [address] [place] [address] Apron Worker Family Medicine 10/21/24 Strategic Sourcing Consultant Relationship Specialty [place] [address] [place] [address] PCP - General Family Medicine 10/05/10 Edenilson Townsend, CHETNA [address] [place] [address] Consulting Optometry 12/07/17 Cinthia Ponce DEFENSIVE LINE COACH.CELL ROOM SUPERVISOR [address] [place] [address] Apron Worker Family Medicine 10/21/24 Willie Kaur DEFENSIVE LINE COACH.CELL ROOM SUPERVISOR [address] [place] [address] Apron Worker Family [facility] 10/21/24 Strategic Sourcing Consultant Relationship Specialty [place] [address] [place] [address] PCP - General Family Medicine 10/05/10 Edenilson Townsend, CHETNA [address] [facility] [place] [address] Consulting Optometry 12/07/17 Cinthia Ponce DEFENSIVE LINE COACH.CELL ROOM SUPERVISOR [address] [place] [address] Apron Worker Family Medicine 10/21/24 Willie Kaur APRN.CELL ROOM SUPERVISOR [address] [place] [address] Apron Worker Family Medicine 10/21/24 Strategic Sourcing Consultant Relationship Specialty [place] [address] [place] [address] PCP - General Family Medicine 10/05/10 Edenilson Townsend OD [address] [place] [address] Consulting Optometry 12/07/17 Cinthia Ponce DEFENSIVE LINE COACH.CELL ROOM SUPERVISOR [address] [place] [address] Apron Worker Family [facility] 10/21/24 Willie Kaur, DEFENSIVE LINE COACH.CELL ROOM SUPERVISOR [address] [place] [address] Apron Worker Family [facility] 10/21/24 Strategic Sourcing Consultant Relationship Specialty [place] [address] [place] [address] PCP - General Family Medicine 10/05/10 Edenilson Townsend OD [address] [place] [address] Consulting Optometry 12/07/17 Cinthia Ponce, DEFENSIVE LINE COACH.CELL ROOM SUPERVISOR [address] [place] [address] Apron Worker Family Medicine 10/21/24 Willie Kaur DEFENSIVE LINE COACH.CELL ROOM SUPERVISOR [address] [place] [address] Apron Worker Family Medicine 10/21/24 Strategic Sourcing Consultant Relationship Specialty [place] [address] [place] [address] PCP - General Family Medicine 10/05/10 Edenilson Townsend, CHETNA [address] [place] [address] Consulting Optometry 12/07/17 Cinthia Ponce, DEFENSIVE LINE COACH.CELL ROOM SUPERVISOR [address] [place] [address] Apron Worker Family Medicine 10/21/24 Willie Kaur, DEFENSIVE LINE COACH.CELL ROOM SUPERVISOR [address] [place] [address] Apron Worker Family Medicine 10/21/24 Strategic Sourcing Consultant Relationship Specialty Start [place] [address] [place] [address] PCP - General Family Medicine 10/05/10 Edenilson Townsend, CHETNA [address] [place] [address] Consulting Optometry 12/07/17 Cinthia Ponce DEFENSIVE LINE COACH.CELL ROOM SUPERVISOR [address] [place] [address] Apron Worker Family Medicine 10/21/24 Willie Kaur, DEFENSIVE LINE COACH.CELL ROOM SUPERVISOR [address] [place] [address] Apron Worker Family Medicine 10/21/24 Strategic Sourcing Consultant Relationship Specialty [place] [address] [place] [address] PCP - General Family Medicine 10/05/10 Edenilson Townsend, OD [address] [place] [address] Consulting Optometry 12/07/17 Cinthia Ponce, DEFENSIVE LINE COACH.CELL ROOM SUPERVISOR [address] [place] [address] Apron Worker Family Medicine 10/21/24 Willie Kaur, DEFENSIVE LINE COACH.CELL ROOM SUPERVISOR [address] [place] [address] Apron Worker Family Medicine 10/21/24 Strategic Sourcing Consultant Relationship Specialty Start [place] [address] [place] [address] PCP - General Family Medicine 10/05/10 Edenilson Townsend, OD [address] [place] [address] Consulting Optometry 12/07/17 Cinthia Ponce, DEFENSIVE LINE COACH.CELL ROOM SUPERVISOR [address] [place] [address] Apron Worker Family Medicine 10/21/24 Willie Kaur, DEFENSIVE LINE COACH.CELL ROOM SUPERVISOR [address] [place] [address] Apron Worker Family Medicine 10/21/24 Strategic Sourcing Consultant Relationship Specialty Start [place] [address] [place] [address] PCP - General Family Medicine 10/05/10 Edenilson Townsend, OD [address] [place] [address] Consulting Optometry 12/07/17 Cinthia Ponce, DEFENSIVE LINE COACH.CELL ROOM SUPERVISOR [address] [place] [address] Apron Worker Family Medicine 10/21/24 Willie Kaur, DEFENSIVE LINE COACH.CELL ROOM SUPERVISOR [address] [place] [address] Apron Worker Family Medicine 10/21/24 Strategic Sourcing Consultant Relationship Specialty Start [place] [address] [place] [address] PCP - General Family Medicine 10/05/10 Edenilson Townsend, OD [address] [place] [address] Consulting Optometry 12/07/17 Cinthia Ponce, DEFENSIVE LINE COACH.CELL ROOM SUPERVISOR [id number] [place] [address] Apron Worker Family Medicine 10/21/24 Willie Kaur DEFENSIVE LINE COACH.CELL ROOM SUPERVISOR [address] [place] [address] Apron Worker Family Medicine 10/21/24 Strategic Sourcing Consultant Relationship Specialty Start [place] [address] [place] [address] PCP - General Family Medicine 10/05/10 Edenilson Townsend, CHETNA [address] [place] [address] Consulting Optometry 12/07/17 Cinthia Ponce, DEFENSIVE LINE COACH.CELL ROOM SUPERVISOR [address] [place] [address] Apron Worker Family Medicine 10/21/24 Willie Kaur, DEFENSIVE LINE COACH.CELL ROOM SUPERVISOR [address] [place] [address] Apron Worker Family Medicine 10/21/24 Strategic Sourcing Consultant Relationship Specialty [place] [address] [place] [address] PCP - General Family Medicine 10/05/10 Edenilson Townsend OD [address] [place] [address] Consulting Optometry 12/07/17 Cinthia Ponce, DEFENSIVE LINE COACH.CELL ROOM SUPERVISOR [address] [place] [address] Apron Worker Family Medicine 10/21/24 Willie Kaur, DEFENSIVE LINE COACH.CELL ROOM SUPERVISOR [address] [place] [address] Apron Worker Family Medicine 10/21/24 Strategic Sourcing Consultant Relationship Specialty Start [place] [address] [place] [address] PCP - General Family Medicine 10/05/10 Edenilson Townsend OD [address] [place] [address] Consulting Optometry 12/07/17 Cinthia Ponce, DEFENSIVE LINE COACH.CELL ROOM SUPERVISOR [address] [place] [address] Apron Worker Family Medicine 10/21/24 Willie Kaur, DEFENSIVE LINE COACH.CELL ROOM SUPERVISOR [address] [place] [address] Apron Worker Family Medicine 10/21/24 Strategic Sourcing Consultant Relationship Specialty Start [place] [address] [place] [address] PCP - General Family Medicine 10/05/10 Edenilson Townsend, CHETNA [address] [place] [address] Consulting Optometry 12/07/17 Cinthia Ponce, DEFENSIVE LINE COACH.CELL ROOM SUPERVISOR [address] [place] [address] Apron Worker Family Medicine 10/21/24 Willie Kaur, DEFENSIVE LINE COACH.CELL ROOM SUPERVISOR [address] [place] [address] Apron Worker Family Medicine 10/21/24 Strategic Sourcing Consultant Relationship Specialty Start [place] [address] [place] [address] PCP - General Family Medicine 10/05/10 Edenilson Townsend, CHETNA [address] [place] [address] Consulting Optometry 12/07/17 Cinthia Ponce DEFENSIVE LINE COACH.CELL ROOM SUPERVISOR [address] [place] [address] Apron Worker Family Medicine 10/21/24 Willie Kaur DEFENSIVE LINE COACH.CELL ROOM SUPERVISOR [address] [place] [address] Apron Worker Family Medicine 10/21/24 Strategic Sourcing Consultant Relationship Specialty [place] [address] [place] [address] PCP - General Family Medicine 10/05/10 Edenilson Townsend OD [address] [place] [address] Consulting Optometry 12/07/17 Cinthia Ponce, DEFENSIVE LINE COACH.CELL ROOM SUPERVISOR [address] [place] [address] Apron Worker Family Medicine 10/21/24 Willie Kaur, DEFENSIVE LINE COACH.CELL ROOM SUPERVISOR [address] [place] [address] Apron Worker Family Medicine 10/21/24 Strategic Sourcing Consultant Relationship Specialty [place] [address] [place] [address] PCP - General Family Medicine 10/05/10 Edenilson Townsend OD [address] [place] [address] Consulting Optometry 12/07/17 Cinthia Ponce DEFENSIVE LINE COACH.CELL ROOM SUPERVISOR [address] [place] [address] Apron Worker Family Medicine 10/21/24 Willie Kaur, DEFENSIVE LINE COACH.CELL ROOM SUPERVISOR [address] [place] [address] Apron Worker Family Medicine 10/21/24 Strategic Sourcing Consultant Relationship Specialty [place] [address] [place] [address] PCP - General Family Medicine 10/05/10 Edenilson Townsend OD [address] [place] [address] Consulting Optometry 12/07/17 Cinthia Ponce DEFENSIVE LINE COACH.CELL ROOM SUPERVISOR [address] [place] [address] Apron Worker Family Medicine 10/21/24 Willie Kaur, DEFENSIVE LINE COACH.CELL ROOM SUPERVISOR [address] [place] [address] Apron Worker Family [facility] 10/21/24 Strategic Sourcing Consultant Relationship Specialty Start [place] [address] [place] [address] PCP - General Family Medicine 10/05/10 Edenilson Townsend OD [address] [place] [address] Consulting Optometry 12/07/17 Cinthia Ponce DEFENSIVE LINE COACH.CELL ROOM SUPERVISOR [address] [place] [address] Apron Worker Family Medicine 10/21/24 Willie Kaur, DEFENSIVE LINE COACH.CELL ROOM SUPERVISOR [address] [place] [address] On License Of [facility] 10/21/24 Team Status: Active Member Role Status [...] RODAS MD Attending Provider Active S tart: 2024 [...] Provider Active S tart: February 04, 2025 Strategic Sourcing Consultant Relationship Specialty Start [place] [address] [place] [address] PCP - General Family Medicine 10/05/10 Edenilson Townsend OD [address] [place] [address] Consulting Optometry 12/07/17 Cinthia Ponce, DEFENSIVE LINE COACH.CELL ROOM SUPERVISOR [address] [place] [address] On License Of [facility] 10/21/24 Willie Kaur, DEFENSIVE LINE COACH.CELL ROOM SUPERVISOR [address] [place] [address] Apron Worker Family [facility] 10/21/24 Team Status: Inactive Member Role Status [...] BE BASED ON THE PRIMARY CLINICAL RECORDS. [employer] [facility]. provides no warranty or guarantee of the accuracy or completeness of information in this document.
[2025-04-29 10:33] LABS: Erythrocyte Sedimentation Rate 32 mm/hr (0-30)
== END ==
LOC: OLS.ACH 04:00
PROVIDERS: Referring Provider Internal Medicine; Visit Provider Internal Medicine
DX: M46.92 Unspecified inflammatory spondylopathy, cervical region (principal); M19.079 Primary osteoarthritis, unspecified ankle and foot; Z86.14 Personal history of Methicillin resistant Staphylococcus aureus infection
CPT/HCPCS: 36415; 85652; 86140

== ENCOUNTER → 2025-05-27 04:00 | Outpatient (REF) | payer MEDICARE, SELFPAY ==
--- OUTSIDE RECORDS SUMMARY | 2025-05-27 04:58 | XMS RPT_ITS | CCD ---
Author Organization [facility] ion [facility] Care Team Providers Care Strike Out Machine Operator Name Role Phone Migdalia Cramer MD Primary Care Provider Edenilson Townsend Unavailable [facility] Unavailable Oseas MURRIETA, Katia Unavailable UnavailMigdalia Matute MD Primary Care Provider Edenilson Townsend Unavailable Migdalia Cramer MD Primary Care Provider Edenilson Townsend Unavailable [phone] Lien Hankins RN Unavailable Edenilson Townsend OD Unavailable [phone] Migdalia Cramer MD Primary Care Provider Kris [employer].Cinthia JUAN Unavailable [facility] [employer].Willie JUAN Unavailable [phone] Aubree HODGE, Mario Attending Provider Unavailable Aubere HODGE, Mario Referring Provider Unavailable PROVIDER, UNKNOWN Attending Unavailable PROVIDER, UNKNOWN Primary Care Unavailable SHAUN SUAREZ Admitting Unavailable JOSIE WYNN Unavailabl e PROVIDER, UNKNOWN Primary Care Unavailable MARTIN NUNES Attending Unavailable LIEN BANG Attending Unavailable PROVIDER, UNKNOWN Primary Care Unavailable LIEN BANG Attending Unavailable PROVIDER, UNKNOWN Primary Care Unavailable GRUPO MENDEZ Referring Unavailable PROVIDER, UNKNOWN Primary Care Unavailable LIEN BANG Attending Unavailable PROVIDER, UNKNOWN Primary Care Unavailable DANIEL BROTHERS Referring Unavailable PROVIDER, UNKNOWN Primary Care Unavailable CINTHIA REDD Attending Unavailable DANIEL BROTHERS Referring Unavailable PROVIDER, UNKNOWN Primary Care Unavailable ELMA THOMPSON Attending Unavailable Aubree HODGE, Mario Attending Provider Unavailable Aubree HODGE, Mario Referring Provider Unavailable MIGDALIA CRAMER Primary Care Unavailable TYESHA SINGLETON Attending Unavailable CRAMER, MIGDALIA Archibald Primary Care Unavailable MITSCH, WILLIE Referring Unavailable CRAMER, MIGDALIA Archibald Primary Care Unavailable MITSCH, WILLIE Referring Unavailable CRAMER, MIGDALIA Archibald Primary Care Unavailable CRAMER, MIGDALIA Archibald Referring Unavailable OSCAR, GRUPO Attending Unavailable CRAMER, MIGDALIA Archibald Primary Care Unavailable CRAMER, MIGDALIA Archibald Attending Unavailable CRAMER, MIGDALIA Archibald Primary Care Unavailable OSCAR, GRUPO Referring Unavailable CRAMER, MIGDALIA Archibald Primary Care Unavailable SIMONE KEVIN Referring Unavailable MARIUSZ ROMO Attending Unavailable CRAMER, MIGDALIA Archibald Primary Care Unavailable CRAMER, MIGDALIA Archibald Primary Care Unavailable SIMONE KEVIN Referring Unavailable CRAMER, MIGDALIA Archibald Primary Care Unavailable SOCAR, GRUPO Referring Unavailable CRAMER, MIGDALIA Archibald Primary Care Unavailable OSCAR, GRUPO Referring Unavailable CRAMER, MIGDALIA Archibald Primary Care Unavailable SIMONE KEVIN Referring Unavailable CRAMER, MIGDALIA Archibald Primary Care Unavailable OSCAR, GRUPO Referring Unavailable SIMONE KEVIN Attending Unavailable CRAMER, MIGDALIA Archibald Primary Care Unavailable AB BENSON Attending Unavailable CRAMER, MIGDALIA Archibald Primary Care Unavailable SELF Referring Unavailable SIMONE KEVIN Attending Unavailable CRAMER, MIGDALIA Archibald Primary Care Unavailable SIMONE KEVIN Referring Unavailable CRAMER, MIGDALIA Archibald Primary Care Unavailable OSCAR, GRUPO Referring Unavailable CRAMER, MIGDALIA Archibald Primary Care Unavailable JUAN JOSÉ MENDEZRA Attending Unavailable CRAMER, MIGDALIA Archibald Primary Care Unavailable CRAMER, MIGDALIA Archibald Attending Unavailable CRAMER, MIGDALIA Archibald Primary Care Unavailable MARIUSZ ROMO Referring Unavailable MIGDALIA CRAMER Attending Unavailable Deperro OLS, Mario Attending Unavailable Deperro OLS, Mario Referring Unavailable Deperro OLS, Mario Attending Unavailable Deperro OLS, Mario Attending Unavailable Deperro OLS, Mario Attending Unavailable Deperro OLS, Mario Referring Unavailable Deperro OLS, Mario Attending Unavailable Deperro OLS, Mario Attending Unavailable Deperro OLS, Mario Referring Unavailable Deperro OLS, Mario Attending Unavailable Deperro OLS, Mario Attending Unavailable Deperro OLS, Mario Attending Unavailable Deperro OLS, Mario Referring Unavailable Mario Velazquez Attending Unavailable Mario Velazquez Attending Unavailable Mario Velazquez Attending Unavailable Medications Current Medications Medication Drug Class(es) Dates Sig (Normalized) Sig (Original) acetaminophen 325 mg oral capsule (10 sources) take 2 tablets by mouth three times daily for pain acetaminophen 325 mg cap Take 325 mg by mouth two times a day. Give 2 tablets by mouth three times a day for pain for 2 weeks Active albuterol 0.833 mg/ml / ipratropium bromide 0.167 mg/ml inhalation solution (5 sources) Anticholinergic, beta2-Adrenergic Agonist take 3 mL [...] DAILY ascorbic acid 500 mg oral tablet (5 sources) Vitamin C take 1 tablet by mouth twice daily ascorbic acid, vitamin C, (VITAMIN C) 500 mg tablet Take 500 mg by mouth two times a day. Active atorvastatin 40 mg oral tablet (5 sources) HMG-CoA Reductase Inhibitor take 1 tablet [...] Comment on above: Take 1 capsule by [facility] once daily for 3 doses. colchicine 0.6 mg oral tablet (16 sources) Start: 12-12-2024 End: 03-12-2025 take 1 tablet by mouth once daily colchicine 0.6 mg tablet Take 1 tablet by mouth once daily. 12/12/2024 Active diclofenac sodium 0.01 mg/mg topical gel [...] needed. docusate sodium 50 mg / sennosides, [facility] 8.6 mg oral tablet (10 sources) take 1 tablet by mouth once [...] by iwona th twice daily. GLUCAGON INJECTION (5 sources) GLUCAGON INJECTI ON 1 mg by INJECTION(UNSPECIFIED PARENTERAL ROUTES) route as needed (hypoglycemia). If glucose is less than 70 and non-responsive or NPO. Repeat blood sugar in 15 minutes. Active 3 ml insulin glargine 100 unt/ml pen injector (16 sources) Insulin Analog Start: inject 22 [IU] by subcutaneous injection once daily at bedtime insulin glargine 100 unit/mL (3 mL) Inject 22 Units subcutaneously daily at bedtime. 12/12/2024 Active insulin lispro 100 unt/ml injectable solution (16 sources) Insulin Analog Start: inject 8 [IU] [...] affected area lisinopril 20 mg oral tablet (16 sources) Angiotensin Converting Enzyme Inhibitor Start: take 1 tablet by mouth once daily lisinopril (ZESTRIL) 20 mg tablet Take 1 tablet by mouth once daily. 12/12/2024 Active magnesium hydroxide 80 mg/ml oral suspension (10 sources) take 5 mL by mouth once [...] pantoprazole 40 mg delayed release oral tablet (16 sources) Proton Pump Inhibitor Start: take 1 [...] mouth once daily. 90 tablet 3 03/01/2024 Active Start: 12-24-2020 End: 10-23-2023 take 1 tablet by mouth once daily pravastatin (PRAVACHOL) 20 mg tablet Indications: Hyperlipidemia with target LDL less than 100 Take 1 tablet by mouth once daily. 90 tablet 3 10/23/2022 Active Comment on above: Take 1 tablet by iwona th once daily. predniSONE 5 mg oral tablet (15 sources) Start: 12-12-2024 End: 2024 take 4 [...] psyllium 3400 mg powder for oral suspension (10 sources) psyllium husk (METAMUCIL) 3.4 gram/5.4 gram powd Take 3.4 g by mouth once daily. One time a day for constipation Active therapeutic multivitamin-minerals (THERA-M PLUS) 9 mg iron-400 mcg tablet (5 sources) therapeutic multivitamin-mineral s (THERA-M PLUS) 9 mg iron-400 mcg tablet Take 1 tablet by mouth once daily. Active traZODone hydrochloride 50 mg oral tablet (20 sources) Serotonin Reuptake Inhibitor Start: 4 End: 4 take 1 tablet by mouth at bedtime as needed traZODone (DESYREL) 50 mg tablet Indications: Insomnia Take 1 tablet by mouth at bedtime as needed for sedation. 90 tablet 3 09/13/2024 Active vitamin b6 50 mg oral tablet (6 sources) Start: 5 take 1 tablet by mouth once daily [...] 08/17/2022 Active take 1 tablet by iwona th once daily glipiZIDE 2.5 mg tablet Take 2.5 mg by mouth once daily. Active Comment on above: Take 1 tablet by iwona th once daily. Take 1 tablet by iwona th once daily. TEMPORARY REFILL WHILE WAITING FOR MAIL ORDER Take 1 tablet by iwona once daily. (local supply while waiting for mail order) TAKE 1 TABLET BY IWONA TH EVERY DAY hydroCHLOROthiazide 25 mg / lisinopril [...] Comment on above: Take 1 capsule by mo [facility] once daily. TAKE 1 CAPSULE BY MO [facility] ONCE DAILY melatonin 3 mg oral [...] disease, without long-term current use of insulin ([facility]) TAKE 1 TABLET BY MOUTH ONCE DAILY 90 tablet 3 06/18/2022 Active Start: 08-19-2020 End: 07-14-2021 pioglitazone (ACTOS) 45 mg t ablet Indications: Type 2 diabetes mellitus with stage 3 chronic kidney disease, without long-term current use of insulin ([facility]) TAKE 1 TABLET BY MOUTH ONCE DAILY 90 tablet 3 07/14/2021 Active Comment on above: TAKE 1 TABLET BY IWONA TH ONCE DAILY polyethylene glycol 3350 03293 mg powder for oral solution (20 sources) [...] Active Problems Problem Classification Problem Date Documented Date Episodic/Chronic Anxiety disorders (17 sources) Anxiety; Translations: [Anxiety disorder, unspecified] Onset: 12-08-2024 12-08-2024 Chronic Bacterial infection; unspecified site (2 sources) Personal history of Methicillin resistant Staphylococcus aureus infection; Translations: [Methicillin susceptible Staphylococcus aureus infection as the cause of diseases classified elsewhere] Onset: 04-19-2025 Episodic Cataract (1 source) Artificial lens present; Translations: [Presence of intraocular lens] 03-21-2024 Chronic Chronic kidney disease (20 sources) Chronic kidney disease; Translations: [Chronic kidney disease, unspecified] Onset: 05-11-2016 Resolved: 12-06-2024 03-07-2017 Chronic Chronic kidney disease (1 source) Chronic kidney disease; Translations: [Chronic kidney disease, stage 3a] Onset: 02-14-2025 Chronic ulcer of skin (5 sources) 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; Translations: [Non-pressure chronic ulcer of right ankle with fat layer exposed] 12-27-2024 Chronic Diabetes mellitus with complications (20 sources) Type 2 diabetes mellitus; Translations: [Type 2 diabetes mellitus with diabetic chronic kidney disease] Onset: 02-22-2010 Resolved: 12-06-2024 Chronic Diabetes mellitus without complication (20 sources) Diabetes mellitus; Translations: [Diabetes mellitus without mention of complication] Onset: 04-10-2003 Resolved: 03-07-2017 05-24-2011 Chronic Diseases of white blood cells (20 sources) Leukocytosis; Translations: [Elevated white blood cell count, unspecified] Onset: 03-27-2022 Resolved: 03-29-2022 Chronic Disorders of lipid metabolism (20 sources) Hyperlipidemia; Translations: [Hyperlipidemia, unspecified] Onset: 02-19-2011 Resolved: 02-12-2014 01-29-2020 Chronic Esophageal disorders (20 sources) Gastroesophageal reflux disease; Translations: [Gastro-esophageal reflux disease without esophagitis] Onset: 06-15-2006 06-15-2006 Chronic Essential hypertension (20 sources) Essential hypertension; Translations: [Essential (primary) hypertension] Onset: 12-01-2016 Resolved: 12-01-2016 01-29-2020 Chronic Genitourinary symptoms and ill-defined conditions (20 sources) Urgent desire to urinate; Translations: [Urgency of urination] Onset: 10-12-2007 Resolved: 12-01-2016 09-15-2011 Episodic Gout and other crystal arthropathies (19 sources) Pyrophosphate arthritis; 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, multiple sites] Onset: 12-07-2024 12-07-2024 Chronic Hypertension with complications and secondary hypertension (20 sources) Chronic kidney disease stage 3 due to hypertension; Translations: [Hypertensive chronic kidney disease with stage 1 through stage 4 chronic kidney disease, or unspecified chronic kidney disease] Onset: 03-17-2021 03-17-2021 Chronic Infective arthritis and osteomyelitis (except that caused by tuberculosis or sexually transmitted disease) (1 source) Osteomyelitis of lower leg; Translations: [Subacute osteomyelitis, right tibia and fibula] 01-08-2025 Chronic Miscellaneous mental health disorders (20 sources) Primary insomnia; Translations: [Primary insomnia] Onset: 05-25-2017 05-25-2017 Chronic Nutritional deficiencies (17 sources) Vitamin D deficiency; Translations: [Vitamin D deficiency, unspecified] Onset: 12-06-2024 12-06-2024 Chronic Nutritional deficiencies (1 source) Vitamin B6 deficiency; Translations: [Pyridoxine deficiency] 01-09-2025 Episodic Osteoarthritis (20 sources) Arthritis of shoulder region joint; Translations: [Primary osteoarthritis, unspecified shoulder] Onset: 10-31-2010 Resolved: 12-07-2017 08-06-2014 Chronic Other connective tissue disease (1 source) Pain of bilateral hands; Translations: [Pain in right hand] Episodic Other connective tissue disease (1 source) Disorder of skeletal muscle; Translations: [Other symptoms and signs involving the musculoskeletal system] Episodic Other injuries and conditions due to external causes (1 source) Other injury of unspecified body region, initial encounter; Translations: [Open wound] Onset: 12-06-2024 Episodic Other nervous system disorders (1 source) Other chronic pain; Translations: [Chronic pain of right ankle] Onset: 11-19-2024 Chronic Other non-traumatic joint disorders (20 sources) Rotator cuff arthropathy of left shoulder; Translations: [Other specific arthropathies, not elsewhere classified, left shoulder] Onset: 07-14-2021 07-14-2021 Chronic Other non-traumatic joint disorders (1 [...] joints of right foot] 11-01-2024 Episodic Other nutritional; endocrine; and metabolic disorders (20 sources) Hypomagnesemia; Translations: [Hypomagnesemia] Onset: 03-24-2022 Resolved: 03-26-2022 03-24-2022 Chronic Other nutritional; endocrine; and metabolic disorders (1 source) Weight loss; Translations: [Abnormal weight loss] 07-12-2024 Episodic Rehabilitation care; fitting of prostheses; and adjustment of devices (17 sources) Patient encounter status; Translations: [Encounter for fitting and adjustment of other specified devices] Onset: 12-07-2024 12-07-2024 Chronic Residual codes; unclassified (2 sources) Insomnia; Translations: [Insomnia, unspecified] 08-14-2024 Episodic Screening and history of mental health and substance abuse codes (3 sources) Patient encounter status; Translations: [Encounter for screening for depression] 09-13-2024 Episodic Spondylosis; intervertebral disc disorders; other back problems (20 sources) Degeneration of cervical intervertebral disc; Translations: [Other cervical disc degeneration, unspecified cervical region] Onset: 10-31-2010 Resolved: 04-13-2023 Chronic Superficial injury; contusion (1 source) Abrasion, right ankle, initial encounter; Translations: [Abrasion or friction burn of hip, thigh, leg, and ankle, without mention of infection] 09-13-2024 Episodic Thyroid disorders (17 sources) Thyroid nodule; Translations: [Nontoxic single thyroid nodule] Onset: 12-08-2024 12-08-2024 Chronic Unclassified (1 source) Wound Check Onset: 01-16-2025 Urinary tract infections (20 sources) Acute cystitis; Translations: [Acute cystitis without hematuria] Onset: 03-24-2022 Resolved: 03-26-2022 03-24-2022 Episodic Past or Other Problems Problem Classification Problem Date Documented Da te Episodic/Chronic Abdominal pain (17 sources) Left upper quadrant pain; Translations: [Left upper quadrant pain] Onset: 5 12-06-2024 Episodic Acute and unspecified renal failure (20 sources) Acute renal failure syndrome; Translations: [Acute kidney failure, unspecified] Onset: 5 Resolved: 5 11-09-2021 Episodic Conditions associated with dizziness or vertigo (20 sources) Vertigo of central origin; Translations: [Vertigo of central origin] Onset: 0 Resolved: 1 09-15-2011 Episodic Deficiency and other anemia (20 sources) Normocytic anemia; Translations: [Anemia, unspecified] Onset: 2 03-24-2022 Episodic Deficiency and other anemia (20 sources) Iron deficiency anemia; Translations: [Iron deficiency anemia, unspecified] Onset: 2 03-27-2022 Episodic Deficiency and other anemia (17 sources) Anemia; Translations: [Anemia, unspecified] Onset: 5 12-06-2024 Episodic Deficiency and other anemia (17 sources) Chronic anemia; Translations: [Anemia, unspecified] Onset: 5 12-08-2024 Episodic Deficiency and other anemia (1 source) Anemia, unspecified; Translations: [Normocytic anemia] Onset: 2 Episodic Fluid and electrolyte disorders (20 sources) Electrolyte imbalance; Translations: [Other disorders of electrolyte and fluid balance, not elsewhere classified] Onset: 2 Resolved: 2 03-24-2022 Episodic Fracture of lower limb (3 sources) Closed fracture of calcaneus; Translations: [Unspecified fracture of right calcaneus, initial encounter for closed fracture] Onset: 4 09-18-2024 Episodic Genitourinary symptoms and ill-defined conditions (20 sources) Urge incontinence of urine; Translations: [Urge incontinence] Onset: 7 Resolved: 7 12-01-2016 Chronic Headache; including migraine (18 sources) Headache; Translations: [Headache, unspecified headache type] Onset: 5 08-14-2024 Episodic Immunizations and screening for infectious disease (17 sources) Anti-nuclear factor positive; Translations: [Other specified abnormal immunological findings in serum] Onset: 5 12-06-2024 Episodic Malaise and fatigue (20 sources) Asthenia; Translations: [Weakness] Onset: 4 08-14-2024 Episodic Menopausal disorders (20 sources) Atrophic vaginitis; Translations: [Postmenopausal atrophic vaginitis] Onset: 7 Resolved: 6 05-11-2016 Chronic Neoplasms of unspecified nature or uncertain behavior (17 sources) Thrombocytosis; Translations: [Thrombocytosis] Onset: 5 12-06-2024 Episodic Open wounds of extremities (20 sources) Disorder of ankle; Translations: [Unspecified open wound, right ankle, initial encounter] Onset: 5 12-07-2024 Episodic Other connective tissue disease (20 sources) Left rotator cuff syndrome; Translations: [Unspecified rotator cuff tear or rupture of left shoulder, not specified as traumatic] Onset: 0 01-29-2020 Episodic Other connective tissue disease (20 sources) Plantar fasciitis; Translations: [Plantar fascial fibromatosis] Onset: 7 Resolved: 8 12-07-2017 Episodic Other connective tissue disease (20 sources) Pain in right arm; Translations: [Pain in right arm] Onset: 2 Resolved: 2 03-29-2022 Episodic Other connective tissue disease (20 sources) Pain in right lower limb; Translations: [Pain in right leg] Onset: 2 Resolved: 2 03-29-2022 Episodic Other connective tissue disease (17 sources) Foot pain; Translations: [Pain in left foot] Onset: 5 12-06-2024 Episodic Other connective tissue disease (17 sources) Muscle pain; Translations: [Myalgia, unspecified site] Onset: 5 12-06-2024 Episodic Other connective tissue disease (17 sources) Muscle weakness of limb; Translations: [Other symptoms and signs involving the musculoskeletal system] Onset: 5 12-06-2024 Episodic Other diseases of bladder and urethra (20 sources) Functional disorder of bladder; Translations: [Other neuromuscular dysfunction of bladder] Onset: 7 Resolved: 1 09-15-2011 Chronic Other diseases of bladder and urethra (20 sources) Overactive bladder; Translations: [Other neuromuscular dysfunction of bladder] Onset: 8 Resolved: 1 09-15-2011 Chronic Other diseases of kidney and ureters (20 sources) Abnormal renal function; Translations: [Disorder of kidney and ureter, unspecified] Resolved: 7 03-07-2017 Episodic Other gastrointestinal disorders (20 sources) Constipation; Translations: [Constipation, unspecified] Onset: 5 Resolved: 6 05-11-2016 Episodic Other inflammatory condition of skin (17 sources) Erythema; Translations: [Erythematous condition, unspecified] Onset: 5 12-06-2024 Episodic Other injuries and conditions due to external causes (17 sources) Open wound; Translations: [Other injury of unspecified body region, initial encounter] Onset: 5 12-06-2024 Episodic Other nervous system disorders (20 sources) Unable to walk; Translations: [Difficulty in walking, not elsewhere classified] Onset: 5 Resolved: 6 05-11-2016 Chronic Other nervous system disorders (20 sources) Abnormal gait; Translations: [Unspecified abnormalities of gait and mobility] Onset: 1 Resolved: 6 05-11-2016 Episodic Other non-traumatic joint disorders (20 sources) Arthralgia of the pelvic region and thigh; Translations: [Pain in unspecified hip] Onset: 0 Resolved: 1 09-15-2011 Episodic Other non-traumatic joint disorders (20 sources) Shoulder joint pain; Translations: [Pain in unspecified shoulder] Onset: 3 Resolved: 4 09-23-2014 Episodic Other non-traumatic joint disorders (20 sources) Joint pain; Translations: [Pain in unspecified joint] Onset: 3 Resolved: 3 03-09-2023 Episodic Other non-traumatic joint disorders (17 sources) Acute ankle pain; Translations: [Pain in left ankle and joints of left foot] Onset: 5 12-06-2024 Episodic Other non-traumatic joint disorders (3 sources) Pain in right ankle and joints of right foot; Translations: [Acute right ankle pain] Onset: 4 Episodic Other non-traumatic joint disorders (2 sources) Effusion, right ankle; Translations: [Right ankle swelling] Onset: 4 Episodic Other screening for suspected conditions (not mental disorders or infectious disease) (20 sources) Serum creatinine raised; Translations: [Other specified abnormal findings of blood chemistry] Onset: 2 Resolved: 2 03-24-2022 Episodic Phlebitis; thrombophlebitis and thromboembolism (17 sources) Thrombophlebitis of superficial vein of left upper limb; Translations: [Phlebitis and thrombophlebitis of other sites] Onset: 5 12-06-2024 Episodic Residual codes; unclassified (20 sources) Unable to perform personal care activity; Translations: [Other specified health status] Onset: 2 Resolved: 2 03-29-2022 Episodic Residual codes; unclassified (18 sources) Pain; Translations: [Pain, unspecified] Onset: 5 Resolved: 5 07-14-2021 Episodic Residual codes; unclassified (17 sources) Generalized acute body pains; Translations: [Pain, unspecified] Onset: 5 12-06-2024 Episodic Residual codes; unclassified (17 sources) Altered mental status; Translations: [Altered mental status, unspecified] Onset: 5 Resolved: 5 12-06-2024 Episodic Septicemia (except in labor) (20 sources) [...] claudication] Onset: 7 Resolved: 8 08-28-2015 Episodic Sprains and strains (20 sources) Traumatic rupture of rotator cuff; Translations: [Strain of muscle(s) and tendon(s) of the rotator cuff of right shoulder, sequela] Onset: 4 Resolved: 7 Episodic Varicose veins of lower extremity (20 sources) Varicose veins of lower extremity; Translations: [Varicose veins of bilateral lower extremities with other complications] Onset: 1 09-27-2011 Episodic Results Test Name Value Interpretation Reference Range Facility [facility] 05-01-2025 CNPN Telephone (RHEUAV) YUSUF MEDINA ([id number]) 1935 F [facility] Date Time Provider Department 05/01/25 TYESHA SINGLETON During your visit today, we recorded the following information about you: Ketty Remy LPN 05/01/2025 4:38 PM Signed Received results of labs done on [facility] from 04/29/25 (abnormal results in bold): CRP 21.0 sed rate 32 Report sent for scanning. Tyesha Singleton MD 05/02/2025 8:14 AM Signed Please ask her to come in for follow up with me. Also make sure she is taking the colchicine and mobic as prescribed. MD Solomon Pruett Trena, LPN 05/02/2025 10:30 AM Signed Called and spoke to [id number], Demetria. Patient is in a long-term care facility. Called facility [phone], but unable to speak to nurse as she is with a patient. , fax sent to verify medications and request a call for appointment. Allergies As of Date: 05/01/2025 (No Known Allergies) Date Reviewed: 02/13/2025 Reviewed by: Margie Steiner RN - Fully Assessed Prescriptions as of 05/02/2025 - atorvastatin (LIPITOR) 40 mg tablet Take [...] patient by: CAREGIVER José Miguel Swanson [facility] Problem List As Of Date 05/01/2025 Noted Resolved Osteoarth NOS-other site [M19.90] 09/15/2011 [...] Degenerative arthritis of hip [M16.9] 10/31/2010 09/23/2014 (more content not included)... Normal [facility] CRPon 04-29-2025 C-REACTIVE PROT 21.00 mg/L High 0.0-3.0 [facility] Comment on above: Order Comment: 107.1 Performed By: #### L 503.6030, L503.0105, L506.0250, L500.4050, L100.0100, L101.9900 #### [facility] [address] [place], [place], [id number] Erythrocyte Sed Rateon 04-29 SED RATE 32 mm/hr High 0-30 [facility] Comment on above: Order Comment: 107.1 Performed By: #### L 503.6030, L503.0105, L506.0250, L500.4050, L100.0100, L101.9900 #### [facility] [address] [place], [place], [address] Urine Cultureon 04-28-2025 URC 107-1 #2 Below infection level. PROBABLE PROTEUS SPECIES Escherichia coli [place] Count 11,000-25,000 Gram negative anabell Gram negative anabell Escherichia coli: REACTION Ampicillin Islt HEMANT >=32 R Ampicillin+Sulbac Islt HEMANT 16 Cefepime Islt HEMANT <=0.12 S cefTRIAXone Islt HEMANT 32 R Ciprofloxacin Islt HEMANT 0.5 I B-Lactamase Extended Susc Islt NEG Gentamicin Islt HEMANT <=1 S levoFLOXacin Islt HEMANT 1 I Meropenem Islt HEMANT <=0.25 S Nitrofurantoin Islt HEMANT 32 S Pip+Tazo Islt HEMANT 8 S TMP SMX Islt HEMANT <=20 S Normal [facility] Comment on above: Performed By: #### L 503.6030, L503.0105, L506.0250, L500.4050, L100.0100, L101.9900 #### [facility] [address] [place], [address] Urinalysis, Completeon 04-26 CAST,FINE GRAN 0-5 SEEN Normal 0-5 [facility] Comment on above: Order Comment: 107.1 Performed By: #### L 503.6030, L503.0105, L506.0250, L500.4050, L100.0100, L101.9900 #### [facility] [address] [place], [address] CAST,HYALINE 5-10 SEEN Normal 0-5 [facility] Comment on above: Order Comment: 107.1 Performed By: #### L 503.6030, L503.0105, L506.0250, L500.4050, L100.0100, L101.9900 #### [facility] [address] [place], [address] BACTERIA 1+ /hpf Normal None Seen [facility] Comment on above: Order Comment: 107.1 Performed By: #### L 503.6030, L503.0105, L506.0250, L500.4050, L100.0100, L101.9900 #### [facility] [address] [place], [address] EPI,SQUAMOUS 5-10 SEEN Normal 5-10 [facility] Comment on above: Order Comment: 107.1 Performed By: #### L 503.6030, L503.0105, L506.0250, L500.4050, L100.0100, L101.9900 #### [facility] [address] [place], [address] WBC 0-5 SEEN Normal 0-5 [facility] Comment on above: Order Comment: 107.1 Performed By: #### L 503.6030, L503.0105, L506.0250, L500.4050, L100.0100, L101.9900 #### [facility] [address] [place], [address] Mucus Ql (Urine sed) 0 SEEN Normal [facility] Comment on above: Order Comment: 107.1 Performed By: #### L 503.6030, L503.0105, L506.0250, L500.4050, L100.0100, L101.9900 #### [facility] [address] [place], [address] RBC 0 SEEN Normal 0-5 [facility] Comment on above: Order Comment: 107.1 Performed By: #### L 503.6030, L503.0105, L506.0250, L500.4050, L100.0100, L101.9900 #### [facility] [address] [place], [address] Urine Cultureon 04-12-2025 URC 107-1 #2 Probable Proteus species. Below infection level. Escherichia coli [place] Count 50,000-80,000 Gram negative anabell Gram negative [...] TMP SMX Islt HEMANT <=20 S Normal [facility] Comment on above: Performed By: #### L 503.6030, L503.0105, L506.0250, L500.4050, L100.0100, L101.9900 #### [facility] [address] [place], [address] Urinalysis, Completeon 04-11 CAST,HYALINE 0-5 SEEN Normal 0-5 [facility] Comment on above: Order Comment: 107.1 Performed By: #### L 503.6030, L503.0105, L506.0250, L500.4050, L100.0100, L101.9900 #### [facility] [address] [place], [address] BACTERIA 1+ /hpf Normal None Seen [facility] Comment on above: Order Comment: 107.1 Performed By: #### L 503.6030, L503.0105, L506.0250, L500.4050, L100.0100, L101.9900 #### [facility] [address] [place], [address] EPI,SQUAMOUS 0-5 SEEN Normal 5-10 [facility] Comment on above: Order Comment: 107.1 Performed By: #### L 503.6030, L503.0105, L506.0250, L500.4050, L100.0100, L101.9900 #### [facility] [address] [place], [address] RBC 0-5 SEEN Normal 0-5 [facility] Comment on above: Order Comment: 107.1 Performed By: #### L 503.6030, L503.0105, L506.0250, L500.4050, L100.0100, L101.9900 #### [facility] [address] [place], [address] WBC 5-10 SEEN Normal 0-5 [facility] Comment on above: Order Comment: 107.1 Performed By: #### L 503.6030, L503.0105, L506.0250, L500.4050, L100.0100, L101.9900 #### [facility] [address] [place], [address] Mucus Ql (Urine sed) 0 SEEN Normal [facility] Comment on above: Order Comment: 107.1 Performed By: #### L 503.6030, L503.0105, L506.0250, L500.4050, L100.0100, L101.9900 #### [facility] [place] [place], [address] Bilirubin Test strip Ql (U)O rdered By: Mario Mak on 04-10-2025 Bilirubin Ql (U) Negative Negative [facility] Hyaline casts LM.LPF (Urine sed) [#/Area]Ordered By: Mario Mak on 04-10-2025 Hyaline casts (Urine sed) [#/Area] 0 /[LPF] 0-5 [facility] Ketones Test strip Ql (U)Ord ered By: Mario Mak on 04-10-2025 Ketones Ql (U) Negative Negative [facility] Microscopic analysis of urin e for red blood cells (RBC)Ordered By: Mario Mak on 04-10-2025 Microscopic analysis of urine for red blood cells (RBC) 0-5 SEEN /hpf 0-5 [facility] Mucus LM Ql (Urine sed)Order ed By: Mario Mak on 04-10-2025 Mucus Ql (Urine sed) 0 SEEN /hpf [facility] Nitrite Test strip Ql (U)Ord ered By: Mario Mak on 04-10-2025 Nitrite Ql (U) Negative Negative [facility] Protein Test strip Ql (U)Ord ered By: Mario Mak on 04-10-2025 Protein Ql (U) 100 mg/dl High Negative [facility] Squamous epithelial cells de tection in urine sediment by light microscopyOrdered By: Mario Mak on 04-10-2025 Epithelial cells.squamous LM Ql (Urine sed) 0-5 SEEN /hpf 5-10 [facility] Urine clarityOrdered By: Shwetha Mak on 04-10-2025 Clarity (U) Clear Clear [facility] Urine color determinationOrd ered By: Mario Mak on 04-10-2025 Color (U) Yellow Yellow [facility] Urine cultureOrdered By: Shwetha Mak on 04-10-2025 Bacteria identified Cx Nom (U) Escherichia coli Abnormal [facility] Bacteria identified Cx Nom (U) Negative Abnormal [facility] Urine glucose detectionOrder ed By: Mario Mak on 04-10-2025 Glucose Ql (U) Normal mg/dl Normal [facility] Urine leukocyte esterase det ection by dipstickOrdered By: Mario Mak on 04-10-2025 Leukocyte esterase Test strip Ql (U) 100 /ul High Negative [facility] Urine pHOrdered By: Mario reece on 04-10-2025 pH (U) 6.0 [pH] 5.0 - 8.0 [facility] Urine sediment bacteria coun t by microscopy (number/high power field)Ordered By: Mario Mak on 04-10-2025 Bacteria LM.HPF (Urine sed) [#/Area] 1 /[HPF] None Seen [facility] Urine specific gravity measu rementOrdered By: Mario Mak on 04-10-2025 Specific gravity (U) [Rel density] 1.015 1.002-1.030 [facility] Urine urobilinogen measureme ntOrdered By: Mario Mak on 04-10-2025 Urobilinogen Ql (U) Normal mg/dl Normal [facility] White blood cell countOrdere d By: Mario Mak on 04-10-2025 White blood cell count 5-10 SEEN /hpf 0-5 [facility] CRPon 04-01-2025 C-REACTIVE PROT < 3.00 Normal 0.0-3.0 [facility] Comment on above: Order Comment: 107-1 Performed By: #### L 501.6710, L101.9900 #### [facility] [address] [place], [place], [id number] Erythrocyte Sed Rateon 04-01 SED RATE 14 mm/hr Normal 0-30 [facility] Comment on above: Order Comment: 107.1 Performed By: #### L 503.6030, L503.0105, L506.0250, L500.4050, L100.0100, L101.9900 #### [facility] [address] [place], [address] Erythrocyte sedimentation ra teOrdered By: Mario Mak on 04-01-2025 ESR (Bld) [Velocity] 14 mm/h 0-30 [facility] Serum or plasma C reactive p rotein measurement (mass/volume)Ordered By: Mario Mak on 04-01-2025 CRP [Mass/Vol] mg/L 0.0-3.0 [facility] Hemoglobin A1c percentageOrd ered By: Mario Mak on 03-12-2025 HbA1c (Bld) [Mass fraction] 7.4 % High <=5.6 [facility] Comment on above: Normal < 5.7 % Predi abetic 5.7 - 6.4 % Diabetic >or= 6.5 % Please note range changes. Order Comment: 107.1 Result Comment: Norm al < 5.7 % Prediabetic 5.7 - 6.4 % Diabetic >or= 6.5 % Please note range changes. Performed By: #### L 503.6030, L503.0105, L506.0250, L500.4050, L100.0100, L101.9900 #### [facility] [address] [place], [place], [id number] CRPon 03-04-2025 C-REACTIVE PROT < 3.00 Normal 0.0-3.0 [facility] Comment on above: Order Comment: 107.1 Performed By: #### L 503.6030, L503.0105, L506.0250, L500.4050, L100.0100, L101.9900 #### [facility] [address] [place], [place], [id number] Erythrocyte Sed Rateon 03-04 SED RATE 12 mm/hr Normal 0-30 [facility] Comment on above: Order Comment: 107.1 Performed By: #### L 503.6030, L503.0105, L506.0250, L500.4050, L100.0100, L101.9900 #### [facility] [address] [place], [place], [address] Erythrocyte sedimentation ra teOrdered By: Mario Mak on 03-04-2025 ESR (Bld) [Velocity] 12 mm/h 0-30 [facility] Serum or plasma C reactive p rotein measurement (mass/volume)Ordered By: Mario Mak on 03-04-2025 CRP [Mass/Vol] mg/L 0.0-3.0 [facility] CNOVon 02-13-2025 CNOV Normal [facility] CNPNon 02-11-2025 CNPN Telephone (RHEUAV) YUSUF MEDINA ([id number]) 1935 F ALBERTO Date Time Provider Department 02/11/25 TYESHA SINGLETON During your visit today, we recorded the following information about you: Lidia Carbajal LPN 02/11/2025 1:00 PM Signed Received results of labs done on 02/04/2025 from [facility] (abnormal results in bold): sed rate 23 0-30 Report sent for scanning. Allergies As of Date: 02/11/2025 (No Known Allergies) Date Reviewed: 01/16/2025 Reviewed by: Nanette Welch, RN - Fully Assessed Reason for Visit: Results [...] patient by: CAREGIVER José Miguel Swanson [facility] Problem List As Of Date 02/11/2025 Noted [...] arthritis [M16.10] (more content not included)... Normal [facility] CRPon 02-04-2025 C-REACTIVE PROT < 3.00 Normal 0.0-3.0 [facility] Comment on above: Order Comment: 107.1 Performed By: #### L 503.6030, L503.0105, L506.0250, L500.4050, L100.0100, L101.9900 #### [facility] [address] [place], [place], [id number] CRP [Mass/Vol]Ordered By: Moreno on 02-04-2025 C-Reactive Protein Extended Range < 3.00 mg/L 0.0-3.0 [facility] Erythrocyte Sed Rateon 02-04 SED RATE 23 mm/hr Normal 0-30 [facility] Comment on above: Order Comment: 107.1 Performed By: #### L 503.6030, L503.0105, L506.0250, L500.4050, L100.0100, L101.9900 #### [facility] [address] [place], [place], [id number] Erythrocyte sedimentation ra teOrdered By: Mario Mak on 02-04-2025 ESR (Bld) [Velocity] 23 mm/h 0-30 [facility] Serum or plasma C reactive p rotein measurement (mass/volume)Ordered By: Mario Mak on 02-04-2025 CRP [Mass/Vol] mg/L 0.0-3.0 [facility] CNOVon 01-16-2025 CNOV [facility] Absolute lymphocyte countOrd ered By: Mario Mak on 01-15-2025 Lymphocytes Auto (Unsp spec) [#/Vol] 1.16 10*3/uL 0.83-4.51 [facility] Absolute neutrophil countOrd ered By: Mario Mak on 01-15-2025 Neutrophils (Bld) [#/Vol] 5.9 10*3/uL 2.0-7.7 [facility] Anion gap in Serum or Plasma Ordered By: Mario Mak on 01-15-2025 Anion gap [Moles/Vol] 12 mmol/L 5-15 [facility] Automated lymphocyte count a s percentage of total leukocytesOrdered By: Mario Mak on 01-15-2025 Lymphocytes/100 WBC Auto (Unsp spec) 14.3 % Low 19-41 [facility] BUN/creatinine ratioOrdered By: Mario Mak on 01-15-2025 Urea nitrogen/Creatinine [Mass ratio] 35.3 mg/mg High 10-20 [facility] Basic Metabolic Profile (BMP )on 01-15-2025 BUN/CRE 35.3 RATIO High 10-20 [facility] Comment on above: Order Comment: 107.1 Performed By: #### L 503.6030, L503.0105, L506.0250, L500.4050, L100.0100, L101.9900 #### [facility] [address] [place], [address] Calcium [Mass/Vol] 9.1 mg/dL Normal 7.6-11.0 [facility] Comment on above: Order Comment: 107.1 Performed By: #### L 503.6030, L503.0105, L506.0250, L500.4050, L100.0100, L101.9900 #### [facility] [address] [place], [address] Chloride [Moles/Vol] 101 mmol/L Normal 98-108 [facility] Comment on above: Order Comment: 107.1 Performed By: #### L 503.6030, L503.0105, L506.0250, L500.4050, L100.0100, L101.9900 #### [facility] [address] [place], [address] CO2 [Moles/Vol] 26.0 mmol/L Normal 21.0-32.0 [facility] Comment on above: Order Comment: 107.1 Performed By: #### L 503.6030, L503.0105, L506.0250, L500.4050, L100.0100, L101.9900 #### [facility] [address] [place], [address] Creatinine [Mass/Vol] 0.76 mg/dL Normal 0.70-1.20 [facility] Comment on above: Order Comment: 107.1 Performed By: #### L 503.6030, L503.0105, L506.0250, L500.4050, L100.0100, L101.9900 #### [facility] [address] [place], [address] GAP 12 Normal 5-15 [facility] Comment on above: Order Comment: 107.1 Performed By: #### L 503.6030, L503.0105, L506.0250, L500.4050, L100.0100, L101.9900 #### [facility] [address] [place], [address] GFR/1.73 sq M.predicted among non-blacks MDRD (S/P/Bld) [Vol rate/Area] 75 mL/min/{1.73_m2} Normal >60 [facility] Comment on above: Order Comment: 107.1 Result Comment: mL/m in/1.73m2 CKD-EPI Creatinine Equation (2020) Performed By: #### L 503.6030, L503.0105, L506.0250, L500.4050, L100.0100, L101.9900 #### [facility] [address] [place], [address] Glucose [Mass/Vol] 108 mg/dL High 70-99 [facility] Comment on above: Order Comment: 107.1 Performed By: #### L 503.6030, L503.0105, L506.0250, L500.4050, L100.0100, L101.9900 #### [facility] [address] [place], [address] Potassium [Moles/Vol] 4.6 mmol/L Normal 3.3-5.1 [facility] Comment on above: Order Comment: 107.1 Performed By: #### L 503.6030, L503.0105, L506.0250, L500.4050, L100.0100, L101.9900 #### [facility] [address] [place], [address] Sodium [Moles/Vol] 139 mmol/L Normal 133-145 [facility] Comment on above: Order Comment: 107.1 Performed By: #### L 503.6030, L503.0105, L506.0250, L500.4050, L100.0100, L101.9900 #### [facility] [address] [place], [address] Urea nitrogen [Mass/Vol] 27 mg/dL High 4-19 [facility] Comment on above: Order Comment: 107.1 Performed By: #### L 503.6030, L503.0105, L506.0250, L500.4050, L100.0100, L101.9900 #### [facility] [address] [place], [address] Basophil percentageOrdered B y: Mario Mak on 01-15-2025 Basophils/100 WBC (Bld) 0.5 % 0-[address] [facility] CBC W/Diff, Automatedon 03-0 Absolute Lymph 1.16 X10 3/uL Normal 0.83-4.51 [facility] Comment on above: Order Comment: 107.1 Performed By: #### L 503.6030, L503.0105, L506.0250, L500.4050, L100.0100, L101.9900 #### [facility] [address] [place], [address] Absolute Neut 5.9 X10 3/uL Normal 2.0-7.7 [facility] Comment on above: Order Comment: 107.1 Performed By: #### L 503.6030, L503.0105, L506.0250, L500.4050, L100.0100, L101.9900 #### [facility] [address] [place], [address] Basophils/100 WBC (Bld) 0.5 % Normal 0-[address] [facility] Comment on above: Order Comment: 107.1 Performed By: #### L 503.6030, L503.0105, L506.0250, L500.4050, L100.0100, L101.9900 #### [facility] [address] [place], [address] Eosinophils/100 WBC (Bld) 4.1 % Normal 0-5 [facility] Comment on above: Order Comment: 107.1 Performed By: #### L 503.6030, L503.0105, L506.0250, L500.4050, L100.0100, L101.9900 #### [facility] [address] [place], [address] Erythrocyte distribution width (RBC) [Ratio] 16.0 % High 11.6-14.6 [facility] Comment on above: Order Comment: 107.1 Performed By: #### L 503.6030, L503.0105, L506.0250, L500.4050, L100.0100, L101.9900 #### [facility] [address] [place], [address] Hematocrit (Bld) [Volume fraction] 29.0 % Low 37-47 [facility] Comment on above: Order Comment: 107.1 Performed By: #### L 503.6030, L503.0105, L506.0250, L500.4050, L100.0100, L101.9900 #### [facility] [address] [place], [address] Hemoglobin (Bld) [Mass/Vol] 9.4 g/dL Low 12.0-15.0 [facility] Comment on above: Order Comment: 107.1 Performed By: #### L 503.6030, L503.0105, L506.0250, L500.4050, L100.0100, L101.9900 #### [facility] [address] [place], [address] IG% 1.100 High 0.0-0.9 [facility] Comment on above: Order Comment: 107.1 Result Comment: IG% - Immature Granulocytes (promyelocytes, myelocytes and metamyelocytes) > 1% indicates that a LEFT SHIFT is Present. Performed By: #### L 503.6030, L503.0105, L506.0250, L500.4050, L100.0100, L101.9900 #### [facility] [address] [place], [address] Lymphocytes/100 WBC (Bld) 14.3 % Low 19-41 [facility] Comment on above: Order Comment: 107.1 Performed By: #### L 503.6030, L503.0105, L506.0250, L500.4050, L100.0100, L101.9900 #### [facility] [address] [place], [address] MCH (RBC) [Entitic mass] 29.5 pg Normal 27.0-32.0 [facility] Comment on above: Order Comment: 107.1 Performed By: #### L 503.6030, L503.0105, L506.0250, L500.4050, L100.0100, L101.9900 #### [facility] [address] [place], [address] MCHC (RBC) [Mass/Vol] 32.4 g/dL Normal 32-36 [facility] Comment on above: Order Comment: 107.1 Performed By: #### L 503.6030, L503.0105, L506.0250, L500.4050, L100.0100, L101.9900 #### [facility] [address] [place], [address] MCV (RBC) [Entitic vol] 90.9 fL Normal 81-[address] [facility] Comment on above: Order Comment: 107.1 Performed By: #### L 503.6030, L503.0105, L506.0250, L500.4050, L100.0100, L101.9900 #### [facility] [address] [place], [address] Monocytes/100 WBC (Bld) 8.1 % Normal 0-10 [facility] Comment on above: Order Comment: 107.1 Performed By: #### L 503.6030, L503.0105, L506.0250, L500.4050, L100.0100, L101.9900 #### [facility] [address] [place], [address] Neutrophils/100 WBC (Bld) 71.9 % High 47-70 [facility] Comment on above: Order Comment: 107.1 Performed By: #### L 503.6030, L503.0105, L506.0250, L500.4050, L100.0100, L101.9900 #### [facility] [address] [place], [address] Nucleated RBC (Bld) [#/Vol] 0 10*3/uL Normal 0-5 [facility] Comment on above: Order Comment: 107.1 Performed By: #### L 503.6030, L503.0105, L506.0250, L500.4050, L100.0100, L101.9900 #### [facility] [address] [place], [address] Platelet mean volume (Bld) [Entitic vol] 9.4 fL Normal 6.2-12.0 [facility] Comment on above: Order Comment: 107.1 Performed By: #### L 503.6030, L503.0105, L506.0250, L500.4050, L100.0100, L101.9900 #### [facility] [address] [place], [address] Platelets (Bld) [#/Vol] 390 10*3/uL Normal 150-450 [facility] Comment on above: Order Comment: 107.1 Performed By: #### L 503.6030, L503.0105, L506.0250, L500.4050, L100.0100, L101.9900 #### [facility] [address] [place], [address] RBC (Bld) [#/Vol] 3.19 10*6/uL Low 4.2-5.4 [facility] Comment on above: Order Comment: 107.1 Performed By: #### L 503.6030, L503.0105, L506.0250, L500.4050, L100.0100, L101.9900 #### [facility] [address] [place], [address] RDW SD 53.4 fl High 35.1-43.9 [facility] Comment on above: Order Comment: 107.1 Performed By: #### L 503.6030, L503.0105, L506.0250, L500.4050, L100.0100, L101.9900 #### [facility] [address] [place], [address] WBC (Bld) [#/Vol] 8.1 10*3/uL Normal 4.4-11.0 [facility] Comment on above: Order Comment: 107.1 Performed By: #### L 503.6030, L503.0105, L506.0250, L500.4050, L100.0100, L101.9900 #### [facility] [place], [address] Carbon dioxide, total [Moles /volume] in Central venous bloodOrdered By: Mario Mak on 01-15-2025 CO2 [Moles/Vol] 26.0 mmol/L 21.0-32.0 [facility] Chloride assayOrdered By: Moreon on 01-15-2025 Chloride [Moles/Vol] 101 mmol/L 98-108 [facility] Eosinophil percentageOrdered By: Mario Mak on 01-15-2025 Eosinophils/100 WBC (Bld) 4.1 % 0-5 [facility] Erythrocyte distribution wid th (RBC) [Ratio]Ordered By: Mario Mak on 01-15-2025 Erythrocyte distribution width (RBC) [Entitic vol] 53.4 fL High 35.1-43.9 [facility] Erythrocyte distribution wid th ratioOrdered By: Mario Mak on 01-15-2025 Erythrocyte distribution width (RBC) [Ratio] 16.0 % High 11.6-14.6 [facility] Erythrocyte distribution wid th standard deviationOrdered By: Mario Mak on 01-15-2025 Erythrocyte distribution width (RBC) [Ratio] 53.4 fl High 35.1-43.9 [facility] GFR/1.73 sq M.predicted ida g non-blacks MDRD (S/P/Bld) [Vol rate/Area]Ordered By: Mario Mak on 01-15-2025 Estimated GFR (MDRD) Non-Af Amer 75 >60 [facility] Comment on above: mL/min/1.73m2 CKD-EP I Creatinine Equation (2020) Glomerular filtration rate ( GFR) estimation/1.73 sq m using serum, plasma, or whole bOrdered By: Mario Mak on 01-15-2025 GFR/1.73 sq M.predicted among non-blacks MDRD (S/P/Bld) [Vol rate/Area] 75 mL/min/{1.73_m2} >60 [facility] Comment on above: mL/min/1.73m2 CKD-EP I Creatinine Equation (2020) Hematocrit Auto (Bld) [Volum e fraction]Ordered By: Mario Mak on 01-15-2025 Hematocrit (Bld) [Volume fraction] 29.0 % Low 37-47 [facility] Hemoglobin measurementOrdere d By: Mario Mak on 01-15-2025 Hemoglobin (Bld) [Mass/Vol] 9.4 g/dL Low 12.0-15.0 [facility] Immature granulocytes/100 WB C Auto (Bld)Ordered By: Mario Mak on 01-15-2025 Immature granulocytes/100 WBC (Bld) 1.100 % High 0.0-0.9 [facility] Comment on above: IG% - Immature Granu locytes (promyelocytes, myelocytes and metamyelocytes) > 1% indicates that a LEFT SHIFT is Present. Lymphocytes Auto (Unsp spec) [#/Vol]Ordered By: Mario Mak on 01-15-2025 Lymphocytes (Bld) [#/Vol] 1.16 10*3/uL 0.83-4.51 [facility] Lymphocytes/100 WBC Auto (Un sp spec)Ordered By: Mario Mak on 01-15-2025 Lymphocytes/100 WBC (Bld) 14.3 % Low 19-41 [facility] MCV (mean corpuscular volume ) determinationOrdered By: Mario Mak on 01-15-2025 MCV (RBC) [Entitic vol] 90.9 fL 81-[address] [facility] Mean corpuscular hemoglobin (MCH) determinationOrdered By: Mario Mak on 01-15-2025 MCH (RBC) [Entitic mass] 29.5 pg 27.0-32.0 [facility] Mean corpuscular hemoglobin concentration (MCHC) determinationOrdered By: Mario Mak on 01-15-2025 MCHC (RBC) [Mass/Vol] 32.4 g/dL 32-36 [facility] Mean platelet volume determi nationOrdered By: Mario Mak on 01-15-2025 Platelet mean volume (Bld) [Entitic vol] 9.4 fL 6.2-12.0 [facility] Monocyte percentageOrdered B y: Mario Mak on 01-15-2025 Monocytes/100 WBC (Bld) 8.1 % 0-[address] [facility] Neutrophil percentageOrdered By: Mario Mak on 01-15-2025 Neutrophils/100 WBC (Bld) 71.9 % High 47-70 [facility] Nucleated red blood cell per centageOrdered By: Mario Mak on 01-15-2025 Nucleated RBC/100 WBC (Bld) [Ratio] 0 % 0-5 [facility] Platelet countOrdered By: Moreno on 01-15-2025 Platelets (Bld) [#/Vol] 390 10*3/uL 150-450 [facility] Potassium (Unsp spec) [Mass/ Vol]Ordered By: Mario Mak on 01-15-2025 Potassium [Moles/Vol] 4.6 mmol/L 3.3-5.1 [facility] Potassium measurement (mass/ volume)Ordered By: Mario Mak on 01-15-2025 Potassium (Unsp spec) [Mass/Vol] 4.6 mmol/L 3.3-5.1 [facility] RBC Auto (Bld) [#/Vol]Ordere d By: Mario Mak on 01-15-2025 RBC (Bld) [#/Vol] 3.19 10*6/uL Low 4.2-5.4 [facility] Serum creatinine measurement (mass/volume)Ordered By: Mario Mak on 01-15-2025 Creatinine [Mass/Vol] 0.76 mg/dL 0.70-1.20 [facility] Serum glucose measurement (m ass/volume)Ordered By: Mario Mak on 01-15-2025 Glucose [Mass/Vol] 108 mg/dL High 70-99 [facility] Serum or plasma calcium roma urement (mass/volume)Ordered By: Mario Mak on 01-15-2025 Calcium [Mass/Vol] 9.1 mg/dL 7.6-11.0 [facility] Serum or plasma urea nitroge n measurement (mass/volume)Ordered By: Mario Mak on 01-15-2025 Urea nitrogen [Mass/Vol] 27 mg/dL High - [facility] Sodium levelOrdered By: Mario Mak on 01-15-2025 Sodium [Moles/Vol] 139 mmol/L 133-145 [facility] White blood cell (WBC) count Ordered By: Mario Mak on 01-15-2025 WBC (Bld) [#/Vol] 8.1 10*3/uL 4.4-11.0 [facility]20[facility] Absolute lymphocyte countOrd ered By: Mario Mak on 01-07-2025 Lymphocytes Auto (Unsp spec) [#/Vol] 0.98 10*3/uL 0.83-4.51 [facility] Absolute neutrophil countOrd ered By: Mario Mak on 01-07-2025 Neutrophils (Bld) [#/Vol] 5.7 10*3/uL 2.0-7.7 [facility] Albumin to globulin ratioOrd ered By: Mario Mak on 01-07-2025 Albumin/Globulin [Mass ratio] 0.6 {ratio} Low 0.9-2.4 [facility] Automated lymphocyte count a s percentage of total leukocytesOrdered By: Mario Mak on 01-07-2025 Lymphocytes/100 WBC Auto (Unsp spec) 12.6 % Low 19-41 [facility] Basophil percentageOrdered B y: Mario Mak on 01-07-2025 Basophils/100 WBC (Bld) 0.5 % 0-[address] [facility] Bilirubin, totalOrdered By: Mario Mak on 01-07-2025 Bilirubin [Mass/Vol] 0.20 mg/dL 0.20-1.00 [facility] Comment on above: For patients on eltr ombopag therapy, use of [facility] [place] TBIL is not recommended. Blood urea nitrogen (BUN)/cr eatinine ratioOrdered By: Mario Mak on 01-07-2025 Urea nitrogen/Creatinine [Mass ratio] 37.0 mg/mg High 10-20 [facility] CBC W/Diff, Automatedon 12-16 Absolute Lymph 0.98 X10 3/uL Normal 0.83-4.51 [facility] Comment on above: Order Comment: 107.1 Performed By: #### L 503.6030, L503.0105, L506.0250, L500.4050, L100.0100, L101.9900 #### [facility] [address] [place], [address] Absolute Neut 5.7 X10 3/uL Normal 2.0-7.7 [facility] Comment on above: Order Comment: 107.1 Performed By: #### L 503.6030, L503.0105, L506.0250, L500.4050, L100.0100, L101.9900 #### [facility] [address] [place], [address] Basophils/100 WBC (Bld) 0.5 % Normal 0-[address] [facility] Comment on above: Order Comment: 107.1 Performed By: #### L 503.6030, L503.0105, L506.0250, L500.4050, L100.0100, L101.9900 #### [facility] [address] [place], [address] Eosinophils/100 WBC (Bld) 3.2 % Normal 0-5 [facility] Comment on above: Order Comment: 107.1 Performed By: #### L 503.6030, L503.0105, L506.0250, L500.4050, L100.0100, L101.9900 #### [facility] [address] [place], [address] Erythrocyte distribution width (RBC) [Ratio] 16.5 % High 11.6-14.6 [facility] Comment on above: Order Comment: 107.1 Performed By: #### L 503.6030, L503.0105, L506.0250, L500.4050, L100.0100, L101.9900 #### [facility] [address] [place], [address] Hematocrit (Bld) [Volume fraction] 28.5 % Low 37-47 [facility] Comment on above: Order Comment: 107.1 Performed By: #### L 503.6030, L503.0105, L506.0250, L500.4050, L100.0100, L101.9900 #### [facility] [address] [place], [address] Hemoglobin (Bld) [Mass/Vol] 8.9 g/dL Low 12.0-15.0 [facility] Comment on above: Order Comment: 107.1 Performed By: #### L 503.6030, L503.0105, L506.0250, L500.4050, L100.0100, L101.9900 #### [facility] [address] [place], [address] IG% 0.600 Normal 0.0-0.9 [facility] Comment on above: Order Comment: 107.1 Result Comment: IG% - Immature Granulocytes (promyelocytes, myelocytes and metamyelocytes) > 1% indicates that a LEFT SHIFT is Present. Performed By: #### L 503.6030, L503.0105, L506.0250, L500.4050, L100.0100, L101.9900 #### [facility] [address] [place], [address] Lymphocytes/100 WBC (Bld) 12.6 % Low 19-41 [facility] Comment on above: Order Comment: 107.1 Performed By: #### L 503.6030, L503.0105, L506.0250, L500.4050, L100.0100, L101.9900 #### [facility] [address] [place], [address] MCH (RBC) [Entitic mass] 28.7 pg Normal 27.0-32.0 [facility] Comment on above: Order Comment: 107.1 Performed By: #### L 503.6030, L503.0105, L506.0250, L500.4050, L100.0100, L101.9900 #### [facility] [address] [place], [address] MCHC (RBC) [Mass/Vol] 31.2 g/dL Low 32-36 [facility] Comment on above: Order Comment: 107.1 Performed By: #### L 503.6030, L503.0105, L506.0250, L500.4050, L100.0100, L101.9900 #### [facility] [address] [place], [address] MCV (RBC) [Entitic vol] 91.9 fL Normal 81-99 [facility] Comment on above: Order Comment: 107.1 Performed By: #### L 503.6030, L503.0105, L506.0250, L500.4050, L100.0100, L101.9900 #### [facility] [address] [place], [address] Monocytes/100 WBC (Bld) 9.9 % Normal 0-10 [facility] Comment on above: Order Comment: 107.1 Performed By: #### L 503.6030, L503.0105, L506.0250, L500.4050, L100.0100, L101.9900 #### [facility] [address] [place], [address] Neutrophils/100 WBC (Bld) 73.2 % High 47-70 [facility] Comment on above: Order Comment: 107.1 Performed By: #### L 503.6030, L503.0105, L506.0250, L500.4050, L100.0100, L101.9900 #### [facility] [address] [place], [address] Nucleated RBC (Bld) [#/Vol] 0 10*3/uL Normal 0-5 [facility] Comment on above: Order Comment: 107.1 Performed By: #### L 503.6030, L503.0105, L506.0250, L500.4050, L100.0100, L101.9900 #### [facility] [address] [place], [address] Platelet mean volume (Bld) [Entitic vol] 9.8 fL Normal 6.2-12.0 [facility] Comment on above: Order Comment: 107.1 Performed By: #### L 503.6030, L503.0105, L506.0250, L500.4050, L100.0100, L101.9900 #### [facility] [address] [place], [address] Platelets (Bld) [#/Vol] 319 10*3/uL Normal 150-450 [facility] Comment on above: Order Comment: 107.1 Performed By: #### L 503.6030, L503.0105, L506.0250, L500.4050, L100.0100, L101.9900 #### [facility] [address] [place], [address] RBC (Bld) [#/Vol] 3.10 10*6/uL Low 4.2-5.4 [facility] Comment on above: Order Comment: 107.1 Performed By: #### L 503.6030, L503.0105, L506.0250, L500.4050, L100.0100, L101.9900 #### [facility] [address] [place], [address] RDW SD 56.5 fl High 35.1-43.9 [facility] Comment on above: Order Comment: 107.1 Performed By: #### L 503.6030, L503.0105, L506.0250, L500.4050, L100.0100, L101.9900 #### [facility] [address] [place], [address] WBC (Bld) [#/Vol] 7.8 10*3/uL Normal 4.4-11.0 [facility] Comment on above: Order Comment: 107.1 Performed By: #### L 503.6030, L503.0105, L506.0250, L500.4050, L100.0100, L101.9900 #### [facility] [address] [place], [address] Carbon dioxide measurementOr dered By: Mario Mak on 01-07-2025 CO2 [Moles/Vol] 28.0 mmol/L 21.0-32.0 [facility] Chloride measurementOrdered By: Mario Mak on 01-07-2025 Chloride [Moles/Vol] 105 mmol/L 98-107 [facility] Comprehensive Metabolic Prof ilon 01-07-2025 Albumin [Mass/Vol] 2.1 g/dL Low 3.2-5.0 [facility] Comment on above: Performed By: #### L 503.6030, L503.0105, L506.0250, L500.4050, L100.0100, L101.9900 #### [facility] [address] [place], [address] Albumin/Globulin [Mass ratio] 0.6 {ratio} Low 0.9-2.4 [facility] Comment on above: Performed By: #### L 503.6030, L503.0105, L506.0250, L500.4050, L100.0100, L101.9900 #### [facility] [address] [place], [address] ALK P 95 U/L Normal 45-117 [facility] Comment on above: Performed By: #### L 503.6030, L503.0105, L506.0250, L500.4050, L100.0100, L101.9900 #### [facility] [address] [place], [address] ALT [Catalytic activity/Vol] U/L Low 13-56 [facility] Comment on above: Performed By: #### L 503.6030, L503.0105, L506.0250, L500.4050, L100.0100, L101.9900 #### [facility] [address] [place], [address] AST [Catalytic activity/Vol] 21 U/L Normal 15-37 [facility] Comment on above: Performed By: #### L 503.6030, L503.0105, L506.0250, L500.4050, L100.0100, L101.9900 #### [facility] [address] [place], [address] Bilirubin [Mass/Vol] 0.20 mg/dL Normal 0.20-1.00 [facility] Comment on above: Result Comment: For patients on eltrombopag therapy, use of [facility] [place] TBIL is not recommended. Performed By: #### L 503.6030, L503.0105, L506.0250, L500.4050, L100.0100, L101.9900 #### [facility] [address] [place], [address] BUN/CRE 37.0 RATIO High 10-20 [facility] Comment on above: Performed By: #### L 503.6030, L503.0105, L506.0250, L500.4050, L100.0100, L101.9900 #### [facility] [address] [place], [address] CA,Total 8.6 mg/dL Normal 8.5-10.1 [facility] Comment on above: Performed By: #### L 503.6030, L503.0105, L506.0250, L500.4050, L100.0100, L101.9900 #### [facility] [address] [place], [address] Chloride [Moles/Vol] 105 mmol/L Normal 98-107 [facility] Comment on above: Performed By: #### L 503.6030, L503.0105, L506.0250, L500.4050, L100.0100, L101.9900 #### [facility] [address] [place], [address] CO2 [Moles/Vol] 28.0 mmol/L Normal 21.0-32.0 [facility] Comment on above: Performed By: #### L 503.6030, L503.0105, L506.0250, L500.4050, L100.0100, L101.9900 #### [facility] [address] [place], [address] Creatinine [Mass/Vol] 0.76 mg/dL Normal 0.55-1.02 [facility] Comment on above: Result Comment: The validity of the calculated GFR GFRAA in patients over 70 years has not been determined. Clinical correlation is essential. Performed By: #### L 503.6030, L503.0105, L506.0250, L500.4050, L100.0100, L101.9900 #### [facility] [address] [place], [address] EST GFR - AA 93 mL/min Normal >60 [facility] Comment on above: Result Comment: Afri can [place] GFR Calc Performed By: #### L 503.6030, L503.0105, L506.0250, L500.4050, L100.0100, L101.9900 #### [facility] [address] [place], [address] GAP 7 Normal 5-15 [facility] Comment on above: Performed By: #### L 503.6030, L503.0105, L506.0250, L500.4050, L100.0100, L101.9900 #### [facility] [address] [place], [address] GFR/1.73 sq M.predicted among non-blacks MDRD (S/P/Bld) [Vol rate/Area] 77 mL/min/{1.73_m2} Normal >60 [facility] Comment on above: Result Comment: Non- GFR Calc Performed By: #### L 503.6030, L503.0105, L506.0250, L500.4050, L100.0100, L101.9900 #### [facility] [address] [place], [address] Globulin (S) [Mass/Vol] 3.4 g/dL Normal 2.2-4.2 [facility] Comment on above: Performed By: #### L 503.6030, L503.0105, L506.0250, L500.4050, L100.0100, L101.9900 #### [facility] [address] [place], [address] Glucose [Mass/Vol] 58 mg/dL Low 74-106 [facility] Comment on above: Performed By: #### L 503.6030, L503.0105, L506.0250, L500.4050, L100.0100, L101.9900 #### [facility] [address] [place], [address] Potassium [Moles/Vol] 4.1 mmol/L Normal 3.5-5.1 [facility] Comment on above: Performed By: #### L 503.6030, L503.0105, L506.0250, L500.4050, L100.0100, L101.9900 #### [facility] [address] [place], [address] Sodium [Moles/Vol] 139 mmol/L Normal 136-145 [facility] Comment on above: Performed By: #### L 503.6030, L503.0105, L506.0250, L500.4050, L100.0100, L101.9900 #### [facility] [address] [place], [address] T PROT 5.5 g/dL Low 6.4-8.2 [facility] Comment on above: Performed By: #### L 503.6030, L503.0105, L506.0250, L500.4050, L100.0100, L101.9900 #### [facility] [address] [place], [address] Urea nitrogen [Mass/Vol] 28 mg/dL High 7-18 [facility] Comment on above: Performed By: #### L 503.6030, L503.0105, L506.0250, L500.4050, L100.0100, L101.9900 #### [facility] [address] [place], [address] Eosinophil percentageOrdered By: Mario Mak on 01-07-2025 Eosinophils/100 WBC (Bld) 3.2 % 0-5 [facility] Erythrocyte Sed Rateon 01-07 SED RATE 41 mm/hr High 0-30 [facility] Comment on above: Order Comment: 107.1 Performed By: #### L 503.6030, L503.0105, L506.0250, L500.4050, L100.0100, L101.9900 #### [facility] [address] [place], [address] Erythrocyte distribution wid th (RBC) [Ratio]Ordered By: Mario Mak on 01-07-2025 Erythrocyte distribution width (RBC) [Entitic vol] 56.5 fL High 35.1-43.9 [facility] Erythrocyte distribution wid th ratioOrdered By: Mario Mak on 01-07-2025 Erythrocyte distribution width (RBC) [Ratio] 16.5 % High 11.6-14.6 [facility] Erythrocyte distribution wid th standard deviationOrdered By: Mario Mak on 01-07-2025 Erythrocyte distribution width (RBC) [Ratio] 56.5 fl High 35.1-43.9 [facility] Erythrocyte sedimentation ra teOrdered By: Mario Mak on 01-07-2025 ESR (Bld) [Velocity] 41 mm/h High 0-30 [facility] Estimated glomerular filtrat ion rate (GFR) AmericanOrdered By: Mario Mak on 01-07-2025 Estimated GFR (MDRD) Amer 93 mL/min >60 [facility] Comment on above: GFR Calc Glomerular filtration rate ( GFR) estimationOrdered By: Mario Mak on 01-07-2025 Estimated GFR (MDRD) Non-Af Amer 77 mL/min >60 [facility] Comment on above: Non- GFR Calc GFR/1.73 sq M.predicted among non-blacks MDRD (S/P/Bld) [Vol rate/Area] 77 mL/min/{1.73_m2} >60 [facility] Comment on above: Non- GFR Calc Glucose measurementOrdered B y: Mario Mak on 01-07-2025 Glucose [Mass/Vol] 58 mg/dL Low 74-106 [facility] Hematocrit Auto (Bld) [Volum e fraction]Ordered By: Mario Mak on 01-07-2025 Hematocrit (Bld) [Volume fraction] 28.5 % Low 37-47 [facility] Hemoglobin measurementOrdere d By: Mario Mak on 01-07-2025 Hemoglobin (Bld) [Mass/Vol] 8.9 g/dL Low 12.0-15.0 [facility] Immature granulocytes/100 WB C Auto (Bld)Ordered By: Mario Mak on 01-07-2025 Immature granulocytes/100 WBC (Bld) 0.600 % 0.0-0.9 [facility] Comment on above: IG% - Immature Granu locytes (promyelocytes, myelocytes and metamyelocytes) > 1% indicates that a LEFT SHIFT is Present. Laboratory - Chemistry and C hemistry - challengeOrdered By: Mario Mak on 01-07-2025 AST [Catalytic activity/Vol] 21 U/L 15-37 [facility] Lymphocytes Auto (Unsp spec) [#/Vol]Ordered By: Mario Mak on 01-07-2025 Lymphocytes (Bld) [#/Vol] 0.98 10*3/uL 0.83-4.51 [facility] Lymphocytes/100 WBC Auto (Un sp spec)Ordered By: Mario Mak on 01-07-2025 Lymphocytes/100 WBC (Bld) 12.6 % Low 19-41 [facility] MCV (mean corpuscular volume ) determinationOrdered By: Maroi Mak on 01-07-2025 MCV (RBC) [Entitic vol] 91.9 fL 81-99 [facility] Mean corpuscular hemoglobin (MCH) determinationOrdered By: Mario Mak on 01-07-2025 MCH (RBC) [Entitic mass] 28.7 pg 27.0-32.0 [facility] Mean corpuscular hemoglobin concentration (MCHC) determinationOrdered By: Mario Mak on 01-07-2025 MCHC (RBC) [Mass/Vol] 31.2 g/dL Low 32-36 [facility] Mean platelet volume determi nationOrdered By: Mario Mak on 01-07-2025 Platelet mean volume (Bld) [Entitic vol] 9.8 fL 6.2-12.0 [facility] Monocyte percentageOrdered B y: Mario Mak on 01-07-2025 Monocytes/100 WBC (Bld) 9.9 % 0-10 [facility] Neutrophil percentageOrdered By: Mario Mak on 01-07-2025 Neutrophils/100 WBC (Bld) 73.2 % High 47-70 [facility] Nucleated red blood cell per centageOrdered By: Mario Mak on 01-07-2025 Nucleated RBC/100 WBC (Bld) [Ratio] 0 % 0-5 [facility] Platelet countOrdered By: Moreno on 01-07-2025 Platelets (Bld) [#/Vol] 319 10*3/uL 150-450 [facility] Potassium measurementOrdered By: Mario Mak on 01-07-2025 Potassium [Moles/Vol] 4.1 mmol/L 3.5-5.1 [facility] [facility] RBC Auto (Bld) [#/Vol]Ordere d By: Mario Mak on 01-07-2025 RBC (Bld) [#/Vol] 3.10 10*6/uL Low 4.2-5.4 [facility] Serum anion gap measurementO rdered By: Mario Mak on 01-07-2025 Anion gap [Moles/Vol] 7 mmol/L 5-15 [facility] Serum globulin measurementOr dered By: Mairo Mak on 01-07-2025 Globulin (S) [Mass/Vol] 3.4 g/dL 2.2-4.2 [facility] Serum or plasma alanine melara otransferase (ALT) measurementOrdered By: Mario Mak on 01-07-2025 ALT [Catalytic activity/Vol] U/L Low 13-56 [facility] Serum or plasma albumin roma urement (mass/volume)Ordered By: Mario Mak on 01-07-2025 Albumin [Mass/Vol] 2.1 g/dL Low 3.2-5.0 [facility] Serum or plasma alkaline krystal sphatase measurementOrdered By: Mario Mak on 01-07-2025 ALP [Catalytic activity/Vol] 95 U/L 45-117 [facility] Serum or plasma calcium roma urement (mass/volume)Ordered By: Mario Mak on 01-07-2025 Calcium [Mass/Vol] 8.6 mg/dL 8.5-10.1 [facility] Serum or plasma creatinine m easurement (mass/volume)Ordered By: Mario Mak on 01-07-2025 Creatinine [Mass/Vol] 0.76 mg/dL 0.55-1.02 [facility] Comment on above: The validity of the calculated GFR & GFRAA in patients over 70 years has not been determined. Clinical correlation is essential. Serum or plasma urea nitroge n measurement (mass/volume)Ordered By: Mario Mak on 01-07-2025 Urea nitrogen [Mass/Vol] 28 mg/dL High 7-18 [facility] Sodium levelOrdered By: Mario Mak on 01-07-2025 Sodium [Moles/Vol] 139 mmol/L 136-145 [facility] Total proteinOrdered By: Shwetha Mak on 01-07-2025 Protein [Mass/Vol] 5.5 g/dL Low 6.4-8.2 [facility] White blood cell (WBC) count Ordered By: Mario Mak on 01-07-2025 WBC (Bld) [#/Vol] 7.8 10*3/uL 4.4-11.0 [facility] Pyridoxine [Mass/Vol]on 12-16 Interpretation and review of laboratory results Abnormal [facility] VITAMIN B6/PYRIDOXINon 01-06 Pyridoxine [Mass/Vol] 13.8 nmol/L Low 20.0 - 125.0 nmol/L Comment on above: INTERPRETIVE INFORMA TION: Vitamin B6 (Pyridoxal 5-Phosphate) Pyridoxal 5'-phosphate measured in a specimen collected following an 8-hour or overnight fast accurately indicates vitamin B6 nutritional status. Non-fasting specimen concentration reflects recent vitamin intake. This test was developed and its performance characteristics determined by [facility]. It has not been cleared or approved by the US Food and Drug Administration. This test was performed in a CLIA certified laboratory and is intended for clinical purposes. Performed By: [facility] [address] [place] [address] [employer] Brusher: Marcellus Raza MD, PhD CLIA Number: [id number] [place] 01-04-2025 ROALNDO Office Visit (MARJORIE ) YUSUF MEDINA ([id number]) 1935 F [place] Date Time Provider Department [...] with dramatic improvement Currently she is in [place] and here with [facility] and nurse aid who gives the history Currently she is pain free Also spoke with her nurse at [place] who states patient does nto complain of pain, pretty sedentary. No specific complaints at [place] per nurse Currently doing well, no pain at present Family states after debridement of rt ankle- patient feels weak and does not want to walk around Was living alone until 2 months ago and now at [place]. Prior to debridement , patient was not [...] L REMV CATARACT EXTRACAP,INSERT LENS Bilateral 2020 [facility] predniSONE (DELTASONE) 5 mg tablet Take 5 [...] by mouth (more content not included)... Normal [facility] 01-03-2025 DRAKEN Telephone (4CQ) YUSUF MEDINA ([id number]) 1935 [place] DOMINGUEZ Date Time Provider Department 01/03/25 MIGDALIA CRAMER 4CQ During your visit today, we recorded the following information about you: Alicia Coffey 01/03/2025 12:30 PM Addendum Received call from [facility]. The pharmaceutical specialty representative has appointment with patient's sons this afternoon at 2 pm and is requesting Advanced Directive/POA paperwork that was scanned in on 12/31. Advised to send records request, but she is concerned about not having this paperwork by 2 pm meeting. Student Counselor can be reached at [phone]. Fax number given for records request as well. Jame Tam MA 01/03/2025 4:16 PM Signed Records release was not signed. Please review and advice. Willie Kaur APRN.DRAKE 01/04/2025 9:45 AM Signed Please advise [facility] that if patient signs record release, they can get any records they need from [facility] medical records. Or family can sign record request at [facility] and [facility] can fax Family Medicine the records request and I can send what I can. Our fax is [phone]. Willie Kaur APRN.DRAKE [facility] Keke Mckinney RN 01/04/2025 12:12 PM Signed Spoke with a physician office secretary at [facility], he took the info again to get us a signed records release faxed to the office. Please watch for fax Willie Kaur APRN.DRAKE 01/04/2025 4:20 PM Signed The initial note indicates that a pharmaceutical specialty representative is calling and gave return phone number [phone]. I called this number and phone rang and rang numerous times. No voice mail. I can print of POA, stamp and fax since this is a facility to facility request. Given to nursing. If the pharmaceutical specialty representative needs anything else and calls back, Please ask for name and direct line so that return call can be made. Thank you. Willie Kaur APRN.Sandrita Arevalo LPN 01/04/2025 4:29 PM Signed Received record release from [facility]. Faxed to number provided on form, confirmation [...] patient by: CAREGIVER José Miguel Swanson [facility] Problem List As Of Date 01/03/2025 Noted Resolved Osteoarth NOS-other site [M19.90] 09/15/2011 BENIGN HYPERTENSION [I10] 12/01/2016 Diabetes mellitus (HCC) [E11.9] 04/10/2003 Esophageal reflux [K21.9] 06/15/2006 Lumbago [M54.50] 05/31/2007 09/15/2011 Urgency of urination [R39.15] (more content not included)... Normal [facility] COPPER BLOODon 01-03-2025 Copper [Mass/Vol] 128 ug/dL 80 - 155 ug/dL Comment on above: This test was corina ped, and its performance characteristics determined by the Department of Pathology and Laboratory Medicine. It has not been cleared or approved by the FDA. The Department of Pathology and Laboratory Medicine is regulated under CLIA as qualified to perform high-complexity testing. This test is used for clinical purposes. It should not be regarded as investigational or for research. Interpretation and review of laboratory results Normal FERRITINon 01-03-2025 Ferritin [Mass/Vol] 865 ng/mL High 14.7 - 2 05.1 ng/mL FOLATE, SERUMon 01-03-2025 Folate [Mass/Vol] 14.8 ng/mL 4.7 - PINF ng/mL Ferritin [Mass/Vol]on 2024 Interpretation and review of laboratory results Abnormal Iron and Iron binding capaci ty panelon 01-03-2025 Interpretation and review of laboratory results Normal Iron [Mass/Vol] 46 ug/dL 41 - 186 ug/dL Iron binding capacity [Mass/Vol] 245 ug/dL 232 - 386 ug/dL Iron/TIBC [Molar ratio] 18.8 % 15.0 - 57.0 % [facility] No Panel InformationOrdered By: Ok Mederos on 01-03-2025 No Panel Informationon 01-03 Interpretation and review of laboratory results Normal [facility] VITAMIN B12on 01-03-2025 Cobalamin (Vitamin B12) [Mass/Vol] 582 pg/mL 232 - 1245 pg/mL ZINC BLDOrdered By: Ok da silva on 01-03-2025 Zinc [Mass/Vol] 56 ug/dL Low 60 - 120 ug/dL Comment on above: This test was develo ped, and its performance characteristics determined by the Department of Pathology and Laboratory Medicine. It has not been cleared or approved by the FDA. The Department of Pathology and Laboratory Medicine is regulated under CLIA as qualified to perform high-complexity testing. This test is used for clinical purposes. It should not be regarded as investigational or for research. Zinc [Mass/Vol]Ordered By: Ricardo Mederos on 01-03-2025 Interpretation and review of laboratory results Abnormal CBC W Auto Differential pane l (Bld)on 01-02-2025 Basophils (Bld) [#/Vol] 0.03 10*3/uL [facility] Bas[facility]/100 WBC (Bld) 0.3 % [facility] Differential cell count method Nom (Bld) Auto Eosinophils (Bld) [#/Vol] 0.3 10*3/uL [facility] Eosinophils/100 WBC (Bld) 2.9 % Erythrocyte distribution width (RBC) [Ratio] 17.2 % High 11.5 - 15.0 % Hematocrit (Bld) [Volume fraction] 34.1 % Low 36.0 - 46.0 % Hemoglobin (Bld) [Mass/Vol] 10.5 g/dL Low 11.5 - 15.5 g/dL Immature granulocytes (Bld) [#/Vol] 0.1 10*3/uL High [facility] Immature granulocytes/100 WBC (Bld) 1 % Interpretation and review of laboratory results Abnormal Lymphocytes (Bld) [#/Vol] 0.78 10*3/uL Low Lymphocytes/100 WBC (Bld) 7.5 % MCH (RBC) [Entitic mass] 28.5 pg 26.0 - 34.0 pg MCHC (RBC) [Mass/Vol] 30.8 g/dL 30.5 - 36.0 g/dL MCV (RBC) [Entitic vol] 92.4 fL 80.0 - 100.0 fL Monocytes (Bld) [#/Vol] 0.61 10*3/uL [facility] Monocytes/100 WBC (Bld) 5.9 % C [facility] Neutrophils (Bld) [#/Vol] 8.56 10*3/uL High Neutrophils/100 WBC (Bld) 82.4 % Nucleated RBC (Bld) [#/Vol] [facility] Nucleated RBC/100 WBC (Bld) [Ratio] 0 % /100 WBC Platelet mean volume (Bld) [Entitic vol] 8.7 fL Low 9.0 - 12.7 fL Platelets (Bld) [#/Vol] 362 10*3/uL RBC (Bld) [#/Vol] 3.69 10*6/uL Low 3.90 - 5.2 0 m/uL WBC (Bld) [#/Vol] 10.38 10*3/uL [facility] Basophils (Bld) [#/Vol] 0.03 10*3/uL Normal <0.11 [facility] Comment on above: Order Comment: Speci men Type: BLOOD SPECIMENOrdering Facility: [facility] Address: [address] [place] [address] Performed By: #### 5 7021-8 ####[facility] [id number] [place] [id number] [place] Basophils/100 WBC (Bld) 0.3 % Normal [facility] Comment on above: Order Comment: Speci men Type: BLOOD SPECIMENOrdering Facility: [facility] Address: [address] [place] [address] Performed By: #### 5 7021-8 ####[facility] LAB[facility]IA [id number] [place] [address] [place] Differential cell count method Nom (Bld) Auto Normal [facility] Comment on above: Order Comment: Speci men Type: BLOOD SPECIMENOrdering Facility: [facility] Address: [address] [place] [address] Performed By: #### 5 7021-8 ####[facility] [id number] [place] [address] [place] Eosinophils (Bld) [#/Vol] 0.30 10*3/uL Normal <0.46 [facility] Comment on above: Order Comment: Speci men Type: BLOOD SPECIMENOrdering Facility: [facility] Address: [address] [place] [address] Performed By: #### 5 7021-8 ####[facility] [id number] [place] [id number] [place] Eosinophils/100 WBC (Bld) 2.9 % Normal [facility] Comment on above: Order Comment: Speci men Type: BLOOD SPECIMENOrdering Facility: [facility] Address: [address] [place] [address] Performed By: #### 5 7021-8 ####[facility] [id number] [place] [address] [place] Erythrocyte distribution width (RBC) [Ratio] 17.2 % High 11.5-15.0 [facility] Comment on above: Order Comment: Speci men Type: BLOOD SPECIMENOrdering Facility: [facility] Address: [address] [place] [address] Performed By: #### 5 7021-8 ####[facility] [id number] [place] [address] [place] Hematocrit (Bld) [Volume fraction] 34.1 % Low 36.0-46.0 [facility] Comment on above: Order Comment: Speci men Type: BLOOD SPECIMENOrdering Facility: [facility] Address: [address] [place] [address] Performed By: #### 5 7021-8 ####[facility] LABIA [id number] [place] [address] [place] Hemoglobin (Bld) [Mass/Vol] 10.5 g/dL Low 11.5-15.5 [facility] Comment on above: Order Comment: Speci men Type: BLOOD SPECIMENOrdering Facility: [facility] Address: [address] [place] [address] Performed By: #### 5 7021-8 ####[facility] LABIA [id number] [place] [address] [place] Immature granulocytes (Bld) [#/Vol] 0.10 10*3/uL High <0.10 [facility] Comment on above: Order Comment: Speci men Type: BLOOD SPECIMENOrdering Facility: [facility] Address: [address] [place] [address] Performed By: #### 5 7021-8 ####[facility] [id number] [place] [id number] [place] Immature granulocytes/100 WBC (Bld) 1.0 % Normal [facility] Comment on above: Order Comment: Speci men Type: BLOOD SPECIMENOrdering Facility: [facility] Address: [address] [place] [address] Performed By: #### 5 7021-8 ####[facility] [id number] [address] [place] Lymphocytes (Bld) [#/Vol] 0.78 10*3/uL Low 1.00-4.00 [facility] Comment on above: Order Comment: Speci men Type: BLOOD SPECIMENOrdering Facility: [facility] Address: [address] [place] [address] Performed By: #### 5 7021-8 ####[facility] [id number] [address] [place] Lymphocytes/100 WBC (Bld) 7.5 % Normal [facility] Comment on above: Order Comment: Speci men Type: BLOOD SPECIMENOrdering Facility: [facility] Address: [address] [place] [address] Performed By: #### 5 7021-8 ####[facility] LABIA [id number] [place] [address] [place] MCH (RBC) [Entitic mass] 28.5 pg Normal 26.0-34.0 [facility] Comment on above: Order Comment: Speci men Type: BLOOD SPECIMENOrdering Facility: [facility] Address: [address] [place] [address] Performed By: #### 5 7021-8 ####[facility] [id number] [place] [id number] [place] MCHC (RBC) [Mass/Vol] 30.8 g/dL Normal 30.5-36.0 [facility] Comment on above: Order Comment: Speci men Type: BLOOD SPECIMENOrdering Facility: [facility] Address: [address] [place] [address] Performed By: #### 5 7021-8 ####[facility] [id number] [place] [address] [place] MCV (RBC) [Entitic vol] 92.4 fL Normal 80.0-100.0 C [facility] Comment on above: Order Comment: Speci men Type: BLOOD SPECIMENOrdering Facility: [facility] Address: [address] [place] [address] Performed By: #### 5 7021-8 ####[facility] [id number] [place] [address] [place] Monocytes (Bld) [#/Vol] 0.61 10*3/uL Normal <0.87 [facility] Comment on above: Order Comment: Speci men Type: BLOOD SPECIMENOrdering Facility: [facility] Address: [address] [place] [address] Performed By: #### 5 7021-8 ####[facility] [id number] [place] [address] [place] Monocytes/100 WBC (Bld) 5.9 % Normal C [facility] Comment on above: Order Comment: Speci men Type: BLOOD SPECIMENOrdering Facility: [facility] Address: [address] [place] [address] Performed By: #### 5 7021-8 ####[facility] [id number] [place] [address] [place] Neutrophils (Bld) [#/Vol] 8.56 10*3/uL High 1.45-7.50 [facility] Comment on above: Order Comment: Speci men Type: BLOOD SPECIMENOrdering Facility: [facility] Address: [address] [place] [address] Performed By: #### 5 7021-8 ####[facility] [id number] [place] [address] [place] Neutrophils/100 WBC (Bld) 82.4 % Normal [facility] Comment on above: Order Comment: Speci men Type: BLOOD SPECIMENOrdering Facility: [facility] Address: [address] [place] [address] Performed By: #### 5 7021-8 ####[facility] [id number] [address] [place] Nucleated RBC (Bld) [#/Vol] 10*3/uL Normal <0.01 [facility] Comment on above: Order Comment: Speci men Type: BLOOD SPECIMENOrdering Facility: [facility] Address: [address] [place] [address] Performed By: #### 5 7021-8 ####[facility] LABIA [id number] [place] [address] [place] Nucleated RBC/100 WBC (Bld) [Ratio] 0.0 /100 WBC Normal [facility] Comment on above: Order Comment: Speci men Type: BLOOD SPECIMENOrdering Facility: [facility] Address: [address] [place] [address] Performed By: #### 5 7021-8 ####[facility] LABIA [id number] [place] [address] [place] Platelet mean volume (Bld) [Entitic vol] 8.7 fL Low 9.0-12.7 [facility] Comment on above: Order Comment: Speci men Type: BLOOD SPECIMENOrdering Facility: [facility] Address: [address] [place] [address] Performed By: #### 5 7021-8 ####[facility] [id number] [place] [address] [place] Platelets (Bld) [#/Vol] 362 10*3/uL Normal 150-400 [facility] Comment on above: Order Comment: Speci men Type: BLOOD SPECIMENOrdering Facility: [facility] Address: [address] [place] [address] Performed By: #### 5 7021-8 ####[facility] [id number] [place] [address] [place] RBC (Bld) [#/Vol] 3.69 10*6/uL Low 3.90-5.20 [facility] Comment on above: Order Comment: Speci men Type: BLOOD SPECIMENOrdering Facility: [facility] Address: [address] [place] [address] Performed By: #### 5 7021-8 ####[facility] LABCLIA [id number] [place] [id number] [facility] WBC (Bld) [#/Vol] 10.38 10*3/uL Normal 3.70-11.00 [facility] Comment on above: Order Comment: Speci men Type: BLOOD SPECIMENOrdering Facility: [facility] Address: [address] [place] [address] Performed By: #### 5 7021-8 ####[facility]IA [id number] [address] [facility] CNOVSPon 01-02-2025 CNOVSP Visit (SP) Office (HEMAST) YUSUF MEDINA ([id number]) 1935 [facility] Date Time Provider Department 01/02/25 8:30 AM GRUPO MENDEZ HEMLUL During your visit today, we recorded the [...] L REMV CATARACT EXTRACAP,INSERT LENS Bilateral 2020 [facility] FAMILY HISTORY Problem Relation Age of Onset [...] daily. amLODI (more content not included)... Normal [facility] CNPNon 01-02-2025 CNPN Telephone (HEMAST) YUSUF MEDINA ([id number]) 1935 F [place] Date Time Provider Department 01/02/25 ADITI LOPEZ HEMLUL During your visit today, we recorded the following information about you: Aditi Lopez LISW 01/02/2025 4:03 PM Signed SOCIAL WORK Date of Service: Thursday January 02, 2025 [facility] Tube Cleaning Operator (SW) Aditi Lopez attempted to contact Yusuf Medina by phone using embalmer/funeral director services to complete the distress assessment. Yusuf has been diagnosed with Normocytic anemia. She flagged for moderate depression on 12-31-24. 08/14/2018 11/21/2024 2024 PHQ-9 Score 9 13 12 SW spoke with Yusuf's family member Mercedes. She advised that Yusuf is in a detention facility. Mercedes advised that she completed the questionnaire without the patient. She also noted that Yusuf will most likely not understand the Ivorian embalmer/funeral director because she speaks a different dialect. At [...] patient by: CAREGIVER José Miguel Swanson [facility] Problem List As Of Date 01/02/2025 Noted [...] Osteoarth NOS-p (more content not included)... Normal [facility] CONFIRM BLOOD TYPEon 025 ABO group Nom (Bld) O [facility] Rh Nom (Bld) Positive [facility] ABO O Normal [facility] Comment on above: Order Comment: Speci men Type: BLOOD SPECIMENOrdering Facility: [facility] Address: [address] [place] [address] [place] [id number] Performed By: #### C ONABO ####[facility] [id number] [place] [address] [place] Rh Nom (Bld) Positive Normal [facility] Comment on above: Order Comment: Speci men Type: BLOOD SPECIMENOrdering Facility: [facility] Address: [address] [place] [address] Performed By: #### C ONABO ####[facility] [id number] [address] [place] COPPER BLOODon 01-02-2025 Copper [Mass/Vol] 128 ug/dL Normal 80-155 [facility] Comment on above: Order Comment: Speci men Type: BLOOD SPECIMENOrdering Facility: [facility] Address: [address] [place] [address] Result Comment: This test was developed, and its performance characteristics determined by the Department of Pathology and Laboratory Medicine. It has not been cleared or approved by the FDA. The Department of Pathology and Laboratory Medicine is regulated under CLIA as qualified to perform high-complexity testing. This test is used for clinical purposes. It should not be regarded as investigational or for research. Performed By: #### 5 763-8, COPPER ####[facility] LABCLIA [id number] [address] [place] Comprehensive metabolic 2000 panelOrdered By: Aminta Lim on 01-02-2025 Albumin [Mass/Vol] 3.5 g/dL Low 3.9 - 4.9 g/dL ALP [Catalytic activity/Vol] 128 U/L High 34 - 123 U/L ALT [Catalytic activity/Vol] U/L Low 7 - 38 U/L Anion gap [Moles/Vol] 13 mmol/L 8 - 15 mmol/L AST [Catalytic activity/Vol] 15 U/L 13 - 35 U/L Bilirubin [Mass/Vol] 0.2 mg/dL 0.2 - 1 .3 mg/dL Calcium [Mass/Vol] 9.1 mg/dL 8.5 - 10. 2 mg/dL Chloride [Moles/Vol] 98 mmol/L 98 - 10 7 mmol/L CO2 [Moles/Vol] 26 mmol/L 22 - 30 mmol/L Creatinine [Mass/Vol] 0.82 mg/dL 0.58 - 0.96 mg/dL GFR/1.73 sq M.predicted among non-blacks MDRD (S/P/Bld) [Vol rate/Area] 68 mL/min/{1.73_m2} - PINF Comment on above: Estimated Glomerular Filtration Rate [...] 276 mg/dL High 74 - 99 mg/dL Comment on above: The [place] [employer]ab[employer] Association (ADA) provides guidance for [...] Standards of Medical Care in Diabetes 2016, [place] [employer]. Diabetes Care. 2016.39(Suppl 1). Interpretation and review of laboratory results Abnormal Potassium [Moles/Vol] 5.1 mmol/L 3.7 - 5.1 mmol/L Protein [Mass/Vol] 5.9 g/dL Low 6.3 - 8.0 g/dL Sodium [Moles/Vol] 137 mmol/L 136 - 144 mmol/L Urea nitrogen [Mass/Vol] 29 mg/dL High 7 - 21 mg/dL [facility] Comprehensive metabolic 2000 panelon 01-02-2025 Albumin [Mass/Vol] 3.5 g/dL Low 3.9-4.9 [facility] Comment on above: Order Comment: Speci men Type: BLOOD SPECIMENOrdering Facility: [facility] Address: [address] [place] [address] Performed By: #### 2 4323-8 ####[facility] LABCLIA [id number] [place] [place] [address] [place] ALP [Catalytic activity/Vol] 128 U/L High 34-123 [facility] Comment on above: Order Comment: Speci men Type: BLOOD SPECIMENOrdering Facility: [facility] Address: [address] [place] [address] Performed By: #### 2 4323-8 ####[facility] LABCLIA [id number] [place] [address] [place] ALT [Catalytic activity/Vol] U/L Low 7-38 [facility] Comment on above: Order Comment: Speci men Type: BLOOD SPECIMENOrdering Facility: [facility] Address: [address] [place] [address] Performed By: #### 2 4323-8 ####[facility] LABCLIA [id number] [place] [address] [place] Anion gap [Moles/Vol] 13 mmol/L Normal 8-15 [facility] Comment on above: Order Comment: Speci men Type: BLOOD SPECIMENOrdering Facility: [facility] Address: [address] [place] [address] Performed By: #### 2 4323-8 ####[facility] LABCLIA [id number] [place] [address] [place] AST [Catalytic activity/Vol] 15 U/L Normal 13-35 [facility] Comment on above: Order Comment: Speci men Type: BLOOD SPECIMENOrdering Facility: [facility] Address: [address] [place] [address] Performed By: #### 2 4323-8 ####[facility] LABCLIA [id number] [place] [address] [place] Bilirubin [Mass/Vol] 0.2 mg/dL Normal 0.2-1.3 [facility] Comment on above: Order Comment: Speci men Type: BLOOD SPECIMENOrdering Facility: [facility] Address: [address] [place] [address] Performed By: #### 2 4323-8 ####[facility] LABCLIA [id number] [place] [address] [place] Calcium [Mass/Vol] 9.1 mg/dL Normal 8.5-10.2 [facility] Comment on above: Order Comment: Speci men Type: BLOOD SPECIMENOrdering Facility: [facility] Address: [address] [place] [address] Performed By: #### 2 4323-8 ####[facility] LABCLIA [id number] [place] [address] [place] Chloride [Moles/Vol] 98 mmol/L Normal 98-107 [facility] Comment on above: Order Comment: Speci men Type: BLOOD SPECIMENOrdering Facility: [facility] Address: [address] [place] [address] Performed By: #### 2 4323-8 ####[facility] LABCLIA [id number] [place] [address] [place] CO2 [Moles/Vol] 26 mmol/L Normal 22-30 [facility] Comment on above: Order Comment: Speci men Type: BLOOD SPECIMENOrdering Facility: [facility] Address: [address] [place] [address] Performed By: #### 2 4323-8 ####[facility] LABCLIA [id number] [place] [address] [place] Creatinine [Mass/Vol] 0.82 mg/dL Normal 0.58-0.96 [facility] Comment on above: Order Comment: Fan meade Type: BLOOD SPECIMENOrdering Facility: [facility] Address: [address] [place] [address] Performed By: #### 2 4323-8 ####[facility] LABCLIA [id number] [place] [address] [place] Creatinine and Glomerular filtration rate.predicted panel (S/P/Bld) 68 mL/min/1.73m??? Normal >=60 [facility] Comment on above: Order Comment: Fan meade Type: BLOOD SPECIMENOrdering Facility: [facility] Address: [address] [place] [address] Result Comment: Hilda mated Glomerular Filtration Rate [...] reflect actual GFR. Performed By: #### 2 4323-8 ####[facility] LABCLIA [id number] [place] [id number] [place] Glucose [Mass/Vol] 276 mg/dL High 74-99 [facility] Comment on above: Order Comment: Fan meade Type: BLOOD SPECIMENOrdering Facility: [facility] Address: [address] [place] [address] Result Comment: The [place] [employer] (ADA) provides guidance for cutoff [...] Standards of Medical Care in Diabetes 2016, [place] [employer]. Diabetes Care. 2016.39(Suppl 1). Performed By: #### 2 4323-8 ####[facility] LABCLIA [id number] [place] [address] [place] Potassium [Moles/Vol] 5.1 mmol/L Normal 3.7-5.1 [facility] Comment on above: Order Comment: Speci men Type: BLOOD SPECIMENOrdering Facility: [facility] Address: [address] [place] [address] Performed By: #### 2 4323-8 ####[facility] LABCLIA [id number] [place] [address] [place] Protein [Mass/Vol] 5.9 g/dL Low 6.3-8.0 [facility] Comment on above: Order Comment: Speci men Type: BLOOD SPECIMENOrdering Facility: [facility] Address: [address] [place] [address] Performed By: #### 2 4323-8 ####[facility] LABIA [id number] [place] [address] [place] Sodium [Moles/Vol] 137 mmol/L Normal 136-144 [facility] Comment on above: Order Comment: Speci men Type: BLOOD SPECIMENOrdering Facility: [facility] Address: [address] [place] [address] Performed By: #### 2 4323-8 ####[facility] LABIA [id number] [place] [id number] [place] Urea nitrogen [Mass/Vol] 29 mg/dL High 7-21 [facility] Comment on above: Order Comment: Speci men Type: BLOOD SPECIMENOrdering Facility: [facility] Address: [address] [place] [address] Performed By: #### 2 4323-8 ####[facility] LABCLIA [id number] [place] [address] [place] ESR Westergren method (Bld) [Velocity]on 01-02-2025 ESR (Bld) [Velocity] 47 mm/h High [facility] Interpretation and review of laboratory results Abnormal [facility] ESR (Bld) [Velocity] 47 mm/h High 0-20 [facility] Comment on above: Order Comment: Speci men Type: BLOOD SPECIMEN [facility] Address: [address] [place] [address] Performed By: #### 5 7021-8 #### [facility] CLIA [id number] [facility] [place] [address] [place] Ferritin SerPl-mCncon 2024 Ferritin [Mass/Vol] 865.0 ng/mL High 14.7-205.1 [facility] Comment on above: Order Comment: Speci men Type: BLOOD SPECIMENOrdering Facility: [facility] Address: [address] [place] [address] Performed By: #### 2 132-9, 2276-4, 89815-8, 2284-8 ####[facility] LABCLIA [id number] [place] [address] [place] Folate SerPl-mCncon 01-02-20 25 Folate [Mass/Vol] 14.8 ng/mL Normal >4.7 [facility] Comment on above: Order Comment: Speci men Type: BLOOD SPECIMENOrdering Facility: [facility] Address: [address] [place] [address] Performed By: #### 2 132-9, 2276-4, 26385-0, 2284-8 ####[facility] LABIA [id number] [place] [address] [place] Iron and Iron binding capaci ty panelon 01-02-2025 Iron [Mass/Vol] 46 ug/dL Normal 41-186 [facility] Comment on above: Order Comment: Speci men Type: BLOOD SPECIMENOrdering Facility: [facility] Address: [address] [place] [address] Performed By: #### 2 132-9, 2276-4, 91027-5, 2284-8 ####[facility] LABCLIA [id number] [place] [address] [place] Iron binding capacity [Mass/Vol] 245 ug/dL Normal 232-386 [facility] Comment on above: Order Comment: Speci men Type: BLOOD SPECIMENOrdering Facility: [facility] Address: [address] [place] [address] Performed By: #### 2 132-9, 2276-4, 68267-2, 2284-8 ####[facility] LABCLIA [id number] [place] [address] [place] Iron/TIBC [Molar ratio] 18.8 % Normal 15.0-57.0 [facility] Comment on above: Order Comment: Speci men Type: BLOOD SPECIMENOrdering Facility: [facility] Address: [address] [place] [address] Performed By: #### 2 132-9, 2276-4, 52621-7, 2284-8 ####[facility] LABCLIA [id number] [place] [address] [place] TYPE + SCREENon 01-02-2025 ABO group Nom (Bld) O [facility] Blood group antibody screen Ql Negative Rh Nom (Bld) Positive Type and Screen Expiration 01/05/2025 23:59 [facility] ABO O Normal [facility] Comment on above: Order Comment: Speci men Type: BLOOD SPECIMENOrdering Facility: [facility] Address: [address] [place] [address] Performed By: #### T SCR ####[facility] BANKIA [id number] [place] [address] [place] Rh Nom (Bld) Positive Normal [facility] Comment on above: Order Comment: Speci men Type: BLOOD SPECIMENOrdering Facility: [facility] Address: [address] [place] [address] Performed By: #### T SCR ####[facility] BLOOD BANKCLIA [id number] [place] [id number] [place] TYPE AND SCREEN EXPIRATION 01/05/2025 23:59 Normal [facility] Comment on above: Order Comment: Speci men Type: BLOOD SPECIMENOrdering Facility: [facility] Address: [address] [place] [address] Performed By: #### T SCR ####[facility] BLO[facility] BANKCLIA [id number] [place] [address] [place] VITAMIN B6/PYRIDOXINon 01-02 VITAMIN B6 13.8 nmol/L Low 20.0-125.0 [facility] Comment on above: Order Comment: Speci men Type: BLOOD SPECIMEN [facility] Address: [address] [place] [address] Result Comment: INTE RPRETIVE INFORMATION: Vitamin B6 (Pyridoxal 5-Phosphate) Pyridoxal 5'-phosphate measured in a specimen collected following an 8-hour or overnight fast accurately indicates vitamin B6 nutritional status. Non-fasting specimen concentration reflects recent vitamin intake. This test was developed and its performance characteristics determined by [facility]. It has not been cleared or approved by the [place] Food and Drug Administration. This test was performed in a CLIA certified laboratory and is intended for clinical purposes. Performed By: [facility] [address] [place] [address] [employer] Brusher: Marcellus Raza MD, PhD CLIA Number: [id number] Performed By: #### 1 3964-2 #### [facility] CLIA [id number] [address] [place] [address] [place] Vit B12 SerPl-mCncon 025 Cobalamin (Vitamin B12) [Mass/Vol] 582 pg/mL Normal 232-1245 [facility] Comment on above: Order Comment: Speci men Type: BLOOD SPECIMENOrdering Facility: [facility] Address: [address] [place] [address] Performed By: #### 2 132-9, 2276-4, 24736-1, 2284-8 ####[facility] LABCLIA [id number] [place] [address] [place] Zinc SerPl-mCncon 01-02-2025 Zinc [Mass/Vol] 56 ug/dL Low 60-120 [facility] Comment on above: Order Comment: Speci men Type: BLOOD SPECIMENOrdering Facility: [facility] Address: [address] [place] [address] Result Comment: This test was developed, and its performance characteristics determined by the Department of Pathology and Laboratory Medicine. It has not been cleared or approved by the FDA. The Department of Pathology and Laboratory Medicine is regulated under CLIA as qualified to perform high-complexity testing. This test is used for clinical purposes. It should not be regarded as investigational or for research. Performed By: #### 5 763-8, COPPER ####[facility] LABCLIA [id number] [place] [address] [place] Absolute lymphocyte countOrd ered By: Mario Mak on 2024 Lymphocytes Auto (Unsp spec) [#/Vol] 0.88 10*3/uL 0.83-4.51 [facility] Absolute neutrophil countOrd ered By: Mario Mak on 2024 Neutrophils (Bld) [#/Vol] 5.4 10*3/uL 2.0-7.7 [facility] Albumin to globulin ratioOrd ered By: Mario Mak on 2024 Albumin/Globulin [Mass ratio] 0.7 {ratio} Low 0.9-2.4 [facility] Automated lymphocyte count a s percentage of total leukocytesOrdered By: Mario Mak on 2024 Lymphocytes/100 WBC Auto (Unsp spec) 11.9 % Low 19-41 [facility] Basophil percentageOrdered B y: Mario Mak on 2024 Basophils/100 WBC (Bld) 0.3 % 0-[address] [facility] Bilirubin, totalOrdered By: Mario Mak on 2024 Bilirubin [Mass/Vol] 0.30 mg/dL 0.20-1.00 [facility] Comment on above: For patients on eltr ombopag therapy, use of [facility] [place] TBIL is not recommended. Blood urea nitrogen (BUN)/cr eatinine ratioOrdered By: Mario Mak on 2024 Urea nitrogen/Creatinine [Mass ratio] 30.9 mg/mg High 10-20 [facility] CBC W/Diff, Automatedon 12-15 Absolute Lymph 0.88 X10 3/uL Normal 0.83-4.51 [facility] Comment on above: Order Comment: 107.1 Performed By: #### L 503.6030, L503.0105, L506.0250, L500.4050, L100.0100, L101.9900 #### [facility] [address] [place], [address] Absolute Neut 5.4 X10 3/uL Normal 2.0-7.7 [facility] Comment on above: Order Comment: 107.1 Performed By: #### L 503.6030, L503.0105, L506.0250, L500.4050, L100.0100, L101.9900 #### [facility] [address] [place], [address] Basophils/100 WBC (Bld) 0.3 % Normal 0-[address] [facility] Comment on above: Order Comment: 107.1 Performed By: #### L 503.6030, L503.0105, L506.0250, L500.4050, L100.0100, L101.9900 #### [facility] [address] [place], [address] Eosinophils/100 WBC (Bld) 6.3 % High 0-5 [facility] Comment on above: Order Comment: 107.1 Performed By: #### L 503.6030, L503.0105, L506.0250, L500.4050, L100.0100, L101.9900 #### [facility] [address] [place], [address] Erythrocyte distribution width (RBC) [Ratio] 17.1 % High 11.6-14.6 [facility] Comment on above: Order Comment: 107.1 Performed By: #### L 503.6030, L503.0105, L506.0250, L500.4050, L100.0100, L101.9900 #### [facility] [address] [place], [address] Hematocrit (Bld) [Volume fraction] 29.8 % Low 37-47 [facility] Comment on above: Order Comment: 107.1 Performed By: #### L 503.6030, L503.0105, L506.0250, L500.4050, L100.0100, L101.9900 #### [facility] [address] [place], [address] Hemoglobin (Bld) [Mass/Vol] 9.4 g/dL Low 12.0-15.0 [facility] Comment on above: Order Comment: 107.1 Performed By: #### L 503.6030, L503.0105, L506.0250, L500.4050, L100.0100, L101.9900 #### [facility] [address] [place], [address] IG% 1.100 High 0.0-0.9 [facility] Comment on above: Order Comment: 107.1 Result Comment: IG% - Immature Granulocytes (promyelocytes, myelocytes and metamyelocytes) > 1% indicates that a LEFT SHIFT is Present. Performed By: #### L 503.6030, L503.0105, L506.0250, L500.4050, L100.0100, L101.9900 #### [facility] [address] [place], [address] Lymphocytes/100 WBC (Bld) 11.9 % Low 19-41 [facility] Comment on above: Order Comment: 107.1 Performed By: #### L 503.6030, L503.0105, L506.0250, L500.4050, L100.0100, L101.9900 #### [facility] [address] [place], [address] MCH (RBC) [Entitic mass] 28.4 pg Normal 27.0-32.0 [facility] Comment on above: Order Comment: 107.1 Performed By: #### L 503.6030, L503.0105, L506.0250, L500.4050, L100.0100, L101.9900 #### [facility] [address] [place], [address] MCHC (RBC) [Mass/Vol] 31.5 g/dL Low 32-36 [facility] Comment on above: Order Comment: 107.1 Performed By: #### L 503.6030, L503.0105, L506.0250, L500.4050, L100.0100, L101.9900 #### [facility] [address] [place], [address] MCV (RBC) [Entitic vol] 90.0 fL Normal 81-[address] [facility] Comment on above: Order Comment: 107.1 Performed By: #### L 503.6030, L503.0105, L506.0250, L500.4050, L100.0100, L101.9900 #### [facility] [address] [place], [address] Monocytes/100 WBC (Bld) 7.5 % Normal 0-[address] [facility] Comment on above: Order Comment: 107.1 Performed By: #### L 503.6030, L503.0105, L506.0250, L500.4050, L100.0100, L101.9900 #### [facility] [address] [place], [address] Neutrophils/100 WBC (Bld) 72.9 % High 47-70 [facility] Comment on above: Order Comment: 107.1 Performed By: #### L 503.6030, L503.0105, L506.0250, L500.4050, L100.0100, L101.9900 #### [facility] [address] [place], [address] Nucleated RBC (Bld) [#/Vol] 0 10*3/uL Normal 0-5 [facility] Comment on above: Order Comment: 107.1 Performed By: #### L 503.6030, L503.0105, L506.0250, L500.4050, L100.0100, L101.9900 #### [facility] [address] [place], [address] Platelet mean volume (Bld) [Entitic vol] 9.2 fL Normal 6.2-12.0 [facility] Comment on above: Order Comment: 107.1 Performed By: #### L 503.6030, L503.0105, L506.0250, L500.4050, L100.0100, L101.9900 #### [facility] [address] [place], [address] Platelets (Bld) [#/Vol] 361 10*3/uL Normal 150-450 [facility] Comment on above: Order Comment: 107.1 Performed By: #### L 503.6030, L503.0105, L506.0250, L500.4050, L100.0100, L101.9900 #### [facility] [address] [place], [address] RBC (Bld) [#/Vol] 3.31 10*6/uL Low 4.2-5.4 [facility] Comment on above: Order Comment: 107.1 Performed By: #### L 503.6030, L503.0105, L506.0250, L500.4050, L100.0100, L101.9900 #### [facility] [address] [place], [address] RDW SD 56.3 fl High 35.1-43.9 [facility] Comment on above: Order Comment: 107.1 Performed By: #### L 503.6030, L503.0105, L506.0250, L500.4050, L100.0100, L101.9900 #### [facility] [address] [place], [address] WBC (Bld) [#/Vol] 7.4 10*3/uL Normal 4.4-11.0 [facility] Comment on above: Order Comment: 107.1 Performed By: #### L 503.6030, L503.0105, L506.0250, L500.4050, L100.0100, L101.9900 #### [facility] [address] [place], [address] Carbon dioxide measurementOr dered By: Mario Mak on 2024 CO2 [Moles/Vol] 28.0 mmol/L 21.0-32.0 [facility] Chloride measurementOrdered By: Mario Mak on 2024 Chloride [Moles/Vol] 102 mmol/L 98-107 [facility] Comprehensive Metabolic Prof ilon 2024 Albumin [Mass/Vol] 2.1 g/dL Low 3.2-5.0 [facility] Comment on above: Order Comment: 107.1 Performed By: #### L 503.6030, L503.0105, L506.0250, L500.4050, L100.0100, L101.9900 #### [facility] [address] [place], [address] Albumin/Globulin [Mass ratio] 0.7 {ratio} Low 0.9-2.4 [facility] Comment on above: Order Comment: 107.1 Performed By: #### L 503.6030, L503.0105, L506.0250, L500.4050, L100.0100, L101.9900 #### [facility] [address] [place], [address] ALK P 102 U/L Normal 45-117 [facility] Comment on above: Order Comment: 107.1 Performed By: #### L 503.6030, L503.0105, L506.0250, L500.4050, L100.0100, L101.9900 #### [facility] [address] [place], [address] ALT [Catalytic activity/Vol] U/L Low 13-56 [facility] Comment on above: Order Comment: 107.1 Performed By: #### L 503.6030, L503.0105, L506.0250, L500.4050, L100.0100, L101.9900 #### [facility] [address] [place], [address] AST [Catalytic activity/Vol] 15 U/L Normal 15-37 [facility] Comment on above: Order Comment: 107.1 Performed By: #### L 503.6030, L503.0105, L506.0250, L500.4050, L100.0100, L101.9900 #### [facility] [address] [place], [address] Bilirubin [Mass/Vol] 0.30 mg/dL Normal 0.20-1.00 [facility] Comment on above: Order Comment: 107.1 Result Comment: For patients on eltrombopag therapy, use of [facility] [place] TBIL is not recommended. Performed By: #### L 503.6030, L503.0105, L506.0250, L500.4050, L100.0100, L101.9900 #### [facility] [address] [place], [address] BUN/CRE 30.9 RATIO High 10-20 [facility] Comment on above: Order Comment: 107.1 Performed By: #### L 503.6030, L503.0105, L506.0250, L500.4050, L100.0100, L101.9900 #### [facility] [address] [place], [address] CA,Total 8.7 mg/dL Normal 8.5-10.1 [facility] Comment on above: Order Comment: 107.1 Performed By: #### L 503.6030, L503.0105, L506.0250, L500.4050, L100.0100, L101.9900 #### [facility] [address] [place], [address] Chloride [Moles/Vol] 102 mmol/L Normal 98-107 [facility] Comment on above: Order Comment: 107.1 Performed By: #### L 503.6030, L503.0105, L506.0250, L500.4050, L100.0100, L101.9900 #### [facility] [address] [place], [address] CO2 [Moles/Vol] 28.0 mmol/L Normal 21.0-32.0 [facility] Comment on above: Order Comment: 107.1 Performed By: #### L 503.6030, L503.0105, L506.0250, L500.4050, L100.0100, L101.9900 #### [facility] [address] [place], [address] Creatinine [Mass/Vol] 0.87 mg/dL Normal 0.55-1.02 [facility] Comment on above: Order Comment: 107.1 Result Comment: The validity of the calculated GFR GFRAA in patients over 70 years has not been determined. Clinical correlation is essential. Performed By: #### L 503.6030, L503.0105, L506.0250, L500.4050, L100.0100, L101.9900 #### [facility] [address] [place], [address] EST GFR - AA 79 mL/min Normal >60 [facility] Comment on above: Order Comment: 107.1 Result Comment: Afri can [place] GFR Calc Performed By: #### L 503.6030, L503.0105, L506.0250, L500.4050, L100.0100, L101.9900 #### [facility] [address] [place], [address] GAP 7 Normal 5-15 [facility] Comment on above: Order Comment: 107.1 Performed By: #### L 503.6030, L503.0105, L506.0250, L500.4050, L100.0100, L101.9900 #### [facility] [address] [place], [address] GFR/1.73 sq M.predicted among non-blacks MDRD (S/P/Bld) [Vol rate/Area] 65 mL/min/{1.73_m2} Normal >60 [facility] Comment on above: Order Comment: 107.1 Result Comment: Non- GFR Calc Performed By: #### L 503.6030, L503.0105, L506.0250, L500.4050, L100.0100, L101.9900 #### [facility] [address] [place], [address] Globulin (S) [Mass/Vol] 3.1 g/dL Normal 2.2-4.[address] [facility] Comment on above: Order Comment: 107.1 Performed By: #### L 503.6030, L503.0105, L506.0250, L500.4050, L100.0100, L101.9900 #### [facility] [address] [place], [address] Glucose [Mass/Vol] 192 mg/dL High 74-106 [facility] Comment on above: Order Comment: 107.1 Result Comment: Fast ing Glucose result greater than or equal to 126 mg/dL suggests DIABETES MELLITUS per A.D.A. criteria. Performed By: #### L 503.6030, L503.0105, L506.0250, L500.4050, L100.0100, L101.9900 #### [facility] [address] [place], [address] Potassium [Moles/Vol] 3.9 mmol/L Normal 3.5-5.1 [facility] Comment on above: Order Comment: 107.1 Performed By: #### L 503.6030, L503.0105, L506.0250, L500.4050, L100.0100, L101.9900 #### [facility] [address] [place], [address] Sodium [Moles/Vol] 137 mmol/L Normal 136-145 [facility] Comment on above: Order Comment: 107.1 Performed By: #### L 503.6030, L503.0105, L506.0250, L500.4050, L100.0100, L101.9900 #### [facility] [address] [place], [address] T PROT 5.2 g/dL Low 6.4-8.2 [facility] Comment on above: Order Comment: 107.1 Performed By: #### L 503.6030, L503.0105, L506.0250, L500.4050, L100.0100, L101.9900 #### [facility] [address] [place], [address] Urea nitrogen [Mass/Vol] 27 mg/dL High 7-18 [facility] Comment on above: Order Comment: 107.1 Performed By: #### L 503.6030, L503.0105, L506.0250, L500.4050, L100.0100, L101.9900 #### [facility] [address] [place], [place], [id number] Eosinophil percentageOrdered By: Mario Mak on 2024 Eosinophils/100 WBC (Bld) 6.3 % High 0-5 [facility] Erythrocyte Sed Rateon 12-31 SED RATE 27 mm/hr Normal 0-30 [facility] Comment on above: Order Comment: 107.1 Performed By: #### L 503.6030, L503.0105, L506.0250, L500.4050, L100.0100, L101.9900 #### [facility] [address] [place], [place], [address] Erythrocyte distribution wid th (RBC) [Ratio]Ordered By: Mario Mak on 2024 Erythrocyte distribution width (RBC) [Entitic vol] 56.3 fL High 35.1-43.9 [facility] Erythrocyte distribution wid th ratioOrdered By: Mario Mak on 2024 Erythrocyte distribution width (RBC) [Ratio] 17.1 % High 11.6-14.6 [facility] Erythrocyte distribution wid th standard deviationOrdered By: Mario Mak on 2024 Erythrocyte distribution width (RBC) [Ratio] 56.3 fl High 35.1-43.9 [facility] Erythrocyte sedimentation ra teOrdered By: Mario Mak on 2024 ESR (Bld) [Velocity] 27 mm/h 0-30 [facility] Estimated glomerular filtrat ion rate (GFR) AmericanOrdered By: Mario Mak on 2024 Estimated GFR (MDRD) Amer 79 mL/min >60 [facility] Comment on above: GFR Calc Glomerular filtration rate ( GFR) estimationOrdered By: Mario Mak on 2024 Estimated GFR (MDRD) Non-Af Amer 65 mL/min >60 [facility] Comment on above: Non- GFR Calc GFR/1.73 sq M.predicted among non-blacks MDRD (S/P/Bld) [Vol rate/Area] 65 mL/min/{1.73_m2} >60 [facility] Comment on above: Non- GFR Calc Glucose measurementOrdered B y: Mario Mak on 2024 Glucose [Mass/Vol] 192 mg/dL High 74-106 [facility] Comment on above: Fasting Glucose resu lt greater than or equal to 126 mg/dL suggests DIABETES MELLITUS per A.D.A. criteria. Hematocrit Auto (Bld) [Volum e fraction]Ordered By: Mario Mak on 2024 Hematocrit (Bld) [Volume fraction] 29.8 % Low 37-47 [facility] Hemoglobin measurementOrdere d By: Mario Mak on 2024 Hemoglobin (Bld) [Mass/Vol] 9.4 g/dL Low 12.0-15.0 [facility] Immature granulocytes/100 WB C Auto (Bld)Ordered By: Mario Mak on 2024 Immature granulocytes/100 WBC (Bld) 1.100 % High 0.0-0.9 [facility] Comment on above: IG% - Immature Granu locytes (promyelocytes, myelocytes and metamyelocytes) > 1% indicates that a LEFT SHIFT is Present. Laboratory - Chemistry and C hemistry - challengeOrdered By: Mario Mak on 2024 AST [Catalytic activity/Vol] 15 U/L 15-37 [facility] Lymphocytes Auto (Unsp spec) [#/Vol]Ordered By: Mario Mak on 2024 Lymphocytes (Bld) [#/Vol] 0.88 10*3/uL 0.83-4.51 [facility] Lymphocytes/100 WBC Auto (Un sp spec)Ordered By: Mario Mak on 2024 Lymphocytes/100 WBC (Bld) 11.9 % Low 19-41 [facility] MCV (mean corpuscular volume ) determinationOrdered By: Mario Mak on 2024 MCV (RBC) [Entitic vol] 90.0 fL 81-[address] [facility] Mean corpuscular hemoglobin (MCH) determinationOrdered By: Mario Mak on 2024 MCH (RBC) [Entitic mass] 28.4 pg 27.0-32.0 [facility] Mean corpuscular hemoglobin concentration (MCHC) determinationOrdered By: Mario aMk on 2024 MCHC (RBC) [Mass/Vol] 31.5 g/dL Low 32-36 [facility] Mean platelet volume determi nationOrdered By: Mario Mak on 2024 Platelet mean volume (Bld) [Entitic vol] 9.2 fL 6.2-12.0 [facility] Monocyte percentageOrdered B y: Mario Mak on 2024 Monocytes/100 WBC (Bld) 7.5 % 0-[address] [facility] Neutrophil percentageOrdered By: Mario Mak on 2024 Neutrophils/100 WBC (Bld) 72.9 % High 47-70 [facility] Nucleated red blood cell per centageOrdered By: Mario Mak on 2024 Nucleated RBC/100 WBC (Bld) [Ratio] 0 % 0-5 [facility] Platelet countOrdered By: Moreon on 2024 Platelets (Bld) [#/Vol] 361 10*3/uL 150-450 [facility] Potassium measurementOrdered By: Mario Mak on 2024 Potassium [Moles/Vol] 3.9 mmol/L 3.5-5.1 [facility] RBC Auto (Bld) [#/Vol]Ordere d By: Mario Mak on 2024 RBC (Bld) [#/Vol] 3.31 10*6/uL Low 4.2-5.4 [facility] Serum anion gap measurementO rdered By: Mario Mak on 2024 Anion gap [Moles/Vol] 7 mmol/L 5-15 [facility] Serum globulin measurementOr dered By: Mario Mak on 2024 Globulin (S) [Mass/Vol] 3.1 g/dL 2.2-4.[address] [facility] Serum or plasma alanine melara otransferase (ALT) measurementOrdered By: Mario Mak on 2024 ALT [Catalytic activity/Vol] U/L Low 13-56 [facility] Serum or plasma albumin roma urement (mass/volume)Ordered By: Mario Mak on 2024 Albumin [Mass/Vol] 2.1 g/dL Low 3.2-5.0 [facility] Serum or plasma alkaline krystal sphatase measurementOrdered By: Mario Mak on 2024 ALP [Catalytic activity/Vol] 102 U/L 45-117 [facility] Serum or plasma calcium roma urement (mass/volume)Ordered By: Mario Mak on 2024 Calcium [Mass/Vol] 8.7 mg/dL 8.5-10.1 [facility] Serum or plasma creatinine m easurement (mass/volume)Ordered By: Mario Mak 2024 Creatinine [Mass/Vol] 0.87 mg/dL 0.55-1.02 [facility] Comment on above: The validity of the calculated GFR & GFRAA in patients over 70 years has not been determined. Clinical correlation is essential. Serum or plasma urea nitroge n measurement (mass/volume)Ordered By: Mario Mak on 2024 Urea nitrogen [Mass/Vol] 27 mg/dL High 7-18 [facility] Sodium levelOrdered By: Mario Mak on 2024 Sodium [Moles/Vol] 137 mmol/L 136-145 [facility] Total proteinOrdered By: Shwetha Mak on 2024 Protein [Mass/Vol] 5.2 g/dL Low 6.4-8.2 [facility] White blood cell (WBC) count Ordered By: Mario Mak on 2024 WBC (Bld) [#/Vol] 7.4 10*3/uL 4.4-11.0 [facility] CNOVon 12-26-2024 CNOV [facility] 12-26-2024 CNPN Telephone (INTMIN) YUSUF MEDINA ([id number]) 1935 F [address] Date Time Provider Department 12/26/24 MIGDALIA CRAMER During your visit today, we recorded the following information about you: Linda Perez, Nikia Q 12/26/2024 9:24 AM Signed Patients caregiver demetria tapia calling to have her [employer] message she sent below addressed. HiYusuf's sons and are in town to make an assessment whether she is able to go home from rehab. Can you talk with them to help with their decision? Please call Nathaniel Medina at [phone]. They are here till Tuesday 12 noon. Thank you. Willie Kaur APRN.CNP 12/26/2024 1:10 PM Signed I wish I [...] physical safety for discharge. Willie Kaur APRN.Cheryl Pastor RN 12/26/2024 1:21 PM Signed Contacted kyrie Armstrong--advised we do not have POA from pt to disclose health information to him Advised Nathaniel that the rehab team will need to make determination if pt is able to be discharged from rehab, we are unable to make that decision or act on pt behalf until she is discharged. Nathaniel states he will get a POA to act on pt's behalf Willie Kaur APRN.CNP 12/26/2024 2:46 PM Signed Noted Willie Kaur APRN.CNP Allergies As of Date: 12/26/2024 (No Known Allergies) Date Reviewed: 12/26/2024 Reviewed by: Sravanthi Hollis, LIT - Fully Assessed Reason for Visit: rehab [...] patient by: CAREGIVER José Miguel Swanson [facility] Problem List As Of Date 12/26/2024 Noted [...] 02/19/2011 02/12/2014 (more content not included)... Normal [facility] Absolute lymphocyte countOrd ered By: Mario Mak on 12-24-2024 Lymphocytes Auto (Unsp spec) [#/Vol] 0.98 10*3/uL 0.83-4.51 [facility] Absolute neutrophil countOrd ered By: Mario Mak on 12-24-2024 Neutrophils (Bld) [#/Vol] 3.8 10*3/uL 2.0-7.7 [facility] Albumin to globulin ratioOrd ered By: Mario Mak on 12-24-2024 Albumin/Globulin [Mass ratio] 0.6 {ratio} Low 0.9-2.4 [facility] Automated lymphocyte count a s percentage of total leukocytesOrdered By: Mario Mak on 12-24-2024 Lymphocytes/100 WBC Auto (Unsp spec) 17.8 % Low 19-41 [facility] Basophil percentageOrdered B y: Mario Mak on 12-24-2024 Basophils/100 WBC (Bld) 0.5 % 0-[address] [facility] Bilirubin, totalOrdered By: Mario Mak on 12-24-2024 Bilirubin [Mass/Vol] 0.30 mg/dL 0.20-1.00 [facility] Comment on above: For patients on eltr ombopag therapy, use of [facility] [place] TBIL is not recommended. Blood urea nitrogen (BUN)/cr eatinine ratioOrdered By: Mario Mak on 12-24-2024 Urea nitrogen/Creatinine [Mass ratio] 30.0 mg/mg High 10-20 [facility] CBC W/Diff, Automatedon 12-15 Absolute Lymph 0.98 X10 3/uL Normal 0.83-4.51 [facility] Comment on above: Order Comment: 107.1 Performed By: #### L 503.6030, L503.0105, L506.0250, L500.4050, L100.0100, L101.9900 #### [facility] [address] [place], [address] Absolute Neut 3.8 X10 3/uL Normal 2.0-7.7 [facility] Comment on above: Order Comment: 107.1 Performed By: #### L 503.6030, L503.0105, L506.0250, L500.4050, L100.0100, L101.9900 #### [facility] [address] [place], [address] Basophils/100 WBC (Bld) 0.5 % Normal 0-[address] [facility] Comment on above: Order Comment: 107.1 Performed By: #### L 503.6030, L503.0105, L506.0250, L500.4050, L100.0100, L101.9900 #### [facility] [address] [place], [address] Eosinophils/100 WBC (Bld) 5.1 % High 0-5 [facility] Comment on above: Order Comment: 107.1 Performed By: #### L 503.6030, L503.0105, L506.0250, L500.4050, L100.0100, L101.9900 #### [facility] [address] [place], [address] Erythrocyte distribution width (RBC) [Ratio] 16.8 % High 11.6-14.6 [facility] Comment on above: Order Comment: 107.1 Performed By: #### L 503.6030, L503.0105, L506.0250, L500.4050, L100.0100, L101.9900 #### [facility] [address] [place], [address] Hematocrit (Bld) [Volume fraction] 27.5 % Low 37-47 [facility] Comment on above: Order Comment: 107.1 Performed By: #### L 503.6030, L503.0105, L506.0250, L500.4050, L100.0100, L101.9900 #### [facility] [address] [place], [address] Hemoglobin (Bld) [Mass/Vol] 8.9 g/dL Low 12.0-15.0 [facility] Comment on above: Order Comment: 107.1 Performed By: #### L 503.6030, L503.0105, L506.0250, L500.4050, L100.0100, L101.9900 #### [facility] [address] [place], [address] IG% 0.900 Normal 0.0-0.9 [facility] Comment on above: Order Comment: 107.1 Result Comment: IG% - Immature Granulocytes (promyelocytes, myelocytes and metamyelocytes) > 1% indicates that a LEFT SHIFT is Present. Performed By: #### L 503.6030, L503.0105, L506.0250, L500.4050, L100.0100, L101.9900 #### [facility] [address] [place], [address] Lymphocytes/100 WBC (Bld) 17.8 % Low 19-41 [facility] Comment on above: Order Comment: 107.1 Performed By: #### L 503.6030, L503.0105, L506.0250, L500.4050, L100.0100, L101.9900 #### [facility] [address] [place], [address] MCH (RBC) [Entitic mass] 29.0 pg Normal 27.0-32.0 [facility] Comment on above: Order Comment: 107.1 Performed By: #### L 503.6030, L503.0105, L506.0250, L500.4050, L100.0100, L101.9900 #### [facility] [address] [place], [address] MCHC (RBC) [Mass/Vol] 32.4 g/dL Normal 32-36 [facility] Comment on above: Order Comment: 107.1 Performed By: #### L 503.6030, L503.0105, L506.0250, L500.4050, L100.0100, L101.9900 #### [facility] [address] [place], [address] MCV (RBC) [Entitic vol] 89.6 fL Normal 81-[address] [facility] Comment on above: Order Comment: 107.1 Performed By: #### L 503.6030, L503.0105, L506.0250, L500.4050, L100.0100, L101.9900 #### [facility] [address] [place], [address] Monocytes/100 WBC (Bld) 7.3 % Normal 0-[address] [facility] Comment on above: Order Comment: 107.1 Performed By: #### L 503.6030, L503.0105, L506.0250, L500.4050, L100.0100, L101.9900 #### [facility] [address] [place], [address] Neutrophils/100 WBC (Bld) 68.4 % Normal 47-70 [facility] Comment on above: Order Comment: 107.1 Performed By: #### L 503.6030, L503.0105, L506.0250, L500.4050, L100.0100, L101.9900 #### [facility] [address] [place], [address] Nucleated RBC (Bld) [#/Vol] 0 10*3/uL Normal 0-5 [facility] Comment on above: Order Comment: 107.1 Performed By: #### L 503.6030, L503.0105, L506.0250, L500.4050, L100.0100, L101.9900 #### [facility] [address] [place], [address] Platelet mean volume (Bld) [Entitic vol] 9.3 fL Normal 6.2-12.0 [facility] Comment on above: Order Comment: 107.1 Performed By: #### L 503.6030, L503.0105, L506.0250, L500.4050, L100.0100, L101.9900 #### [facility] [address] [place], [address] Platelets (Bld) [#/Vol] 309 10*3/uL Normal 150-450 [facility] Comment on above: Order Comment: 107.1 Performed By: #### L 503.6030, L503.0105, L506.0250, L500.4050, L100.0100, L101.9900 #### [facility] [address] [place], [address] RBC (Bld) [#/Vol] 3.07 10*6/uL Low 4.2-5.4 [facility] Comment on above: Order Comment: 107.1 Performed By: #### L 503.6030, L503.0105, L506.0250, L500.4050, L100.0100, L101.9900 #### [facility] [address] [place], [address] RDW SD 55.5 fl High 35.1-43.9 [facility] Comment on above: Order Comment: 107.1 Performed By: #### L 503.6030, L503.0105, L506.0250, L500.4050, L100.0100, L101.9900 #### [facility] [address] [place], [address] WBC (Bld) [#/Vol] 5.5 10*3/uL Normal 4.4-11.0 [facility] Comment on above: Order Comment: 107.1 Performed By: #### L 503.6030, L503.0105, L506.0250, L500.4050, L100.0100, L101.9900 #### [facility] [address] [place], [address] Carbon dioxide measurementOr dered By: Mario Mak on 12-24-2024 CO2 [Moles/Vol] 29.0 mmol/L 21.0-32.0 [facility] Chloride measurementOrdered By: Mario Mak on 12-24-2024 Chloride [Moles/Vol] 106 mmol/L 98-107 [facility] Comprehensive Metabolic Prof ilon 12-24-2024 Albumin [Mass/Vol] 2.0 g/dL Low 3.2-5.0 [facility] Comment on above: Order Comment: 107.1 Performed By: #### L 503.6030, L503.0105, L506.0250, L500.4050, L100.0100, L101.9900 #### [facility] [address] [place], [address] Albumin/Globulin [Mass ratio] 0.6 {ratio} Low 0.9-2.4 [facility] Comment on above: Order Comment: 107.1 Performed By: #### L 503.6030, L503.0105, L506.0250, L500.4050, L100.0100, L101.9900 #### [facility] [address] [place], [address] ALK P 108 U/L Normal 45-117 [facility] Comment on above: Order Comment: 107.1 Performed By: #### L 503.6030, L503.0105, L506.0250, L500.4050, L100.0100, L101.9900 #### [facility] [address] [place], [address] ALT [Catalytic activity/Vol] U/L Low 13-56 [facility] Comment on above: Order Comment: 107.1 Performed By: #### L 503.6030, L503.0105, L506.0250, L500.4050, L100.0100, L101.9900 #### [facility] [address] [place], [address] AST [Catalytic activity/Vol] 17 U/L Normal 15-37 [facility] Comment on above: Order Comment: 107.1 Performed By: #### L 503.6030, L503.0105, L506.0250, L500.4050, L100.0100, L101.9900 #### [facility] [address] [place], [address] Bilirubin [Mass/Vol] 0.30 mg/dL Normal 0.20-1.00 [facility] Comment on above: Order Comment: 107.1 Result Comment: For patients on eltrombopag therapy, use of [facility] [place] TBIL is not recommended. Performed By: #### L 503.6030, L503.0105, L506.0250, L500.4050, L100.0100, L101.9900 #### [facility] [address] [place], [address] BUN/CRE 30.0 RATIO High 10-20 [facility] Comment on above: Order Comment: 107.1 Performed By: #### L 503.6030, L503.0105, L506.0250, L500.4050, L100.0100, L101.9900 #### [facility] [address] [place], [address] CA,Total 8.8 mg/dL Normal 8.5-10.1 [facility] Comment on above: Order Comment: 107.1 Performed By: #### L 503.6030, L503.0105, L506.0250, L500.4050, L100.0100, L101.9900 #### [facility] [address] [place], [address] Chloride [Moles/Vol] 106 mmol/L Normal 98-107 [facility] Comment on above: Order Comment: 107.1 Performed By: #### L 503.6030, L503.0105, L506.0250, L500.4050, L100.0100, L101.9900 #### [facility] [address] [place], [address] CO2 [Moles/Vol] 29.0 mmol/L Normal 21.0-32.0 [facility] Comment on above: Order Comment: 107.1 Performed By: #### L 503.6030, L503.0105, L506.0250, L500.4050, L100.0100, L101.9900 #### [facility] [address] [place], [address] Creatinine [Mass/Vol] 0.83 mg/dL Normal 0.55-1.02 [facility] Comment on above: Order Comment: 107.1 Result Comment: The validity of the calculated GFR GFRAA in patients over 70 years has not been determined. Clinical correlation is essential. Performed By: #### L 503.6030, L503.0105, L506.0250, L500.4050, L100.0100, L101.9900 #### [facility] [address] [place], [address] EST GFR - AA 83 mL/min Normal >60 [facility] Comment on above: Order Comment: 107.1 Result Comment: Afri can [place] GFR Calc Performed By: #### L 503.6030, L503.0105, L506.0250, L500.4050, L100.0100, L101.9900 #### [facility] [address] [place], [address] GAP 7 Normal 5-15 [facility] Comment on above: Order Comment: 107.1 Performed By: #### L 503.6030, L503.0105, L506.0250, L500.4050, L100.0100, L101.9900 #### [facility] [address] [place], [address] GFR/1.73 sq M.predicted among non-blacks MDRD (S/P/Bld) [Vol rate/Area] 68 mL/min/{1.73_m2} Normal >60 [facility] Comment on above: Order Comment: 107.1 Result Comment: Non- GFR Calc Performed By: #### L 503.6030, L503.0105, L506.0250, L500.4050, L100.0100, L101.9900 #### [facility] [address] [place], [address] Globulin (S) [Mass/Vol] 3.4 g/dL Normal 2.2-4.2 [facility] Comment on above: Order Comment: 107.1 Performed By: #### L 503.6030, L503.0105, L506.0250, L500.4050, L100.0100, L101.9900 #### [facility] [address] [place], [address] Glucose [Mass/Vol] 76 mg/dL Normal 74-106 [facility] Comment on above: Order Comment: 107.1 Performed By: #### L 503.6030, L503.0105, L506.0250, L500.4050, L100.0100, L101.9900 #### [facility] Laboratory [address] [place], [address] Potassium [Moles/Vol] 4.0 mmol/L Normal 3.5-5.1 [facility] Comment on above: Order Comment: 107.1 Performed By: #### L 503.6030, L503.0105, L506.0250, L500.4050, L100.0100, L101.9900 #### [facility] Laboratory [address] [place], [address] Sodium [Moles/Vol] 141 mmol/L Normal 136-145 [facility] Comment on above: Order Comment: 107.1 Performed By: #### L 503.6030, L503.0105, L506.0250, L500.4050, L100.0100, L101.9900 #### [facility] Laboratory [address] [place], [address] T PROT 5.4 g/dL Low 6.4-8.2 [facility] Comment on above: Order Comment: 107.1 Performed By: #### L 503.6030, L503.0105, L506.0250, L500.4050, L100.0100, L101.9900 #### [facility] Laboratory [address] [place], [place], [id number] Urea nitrogen [Mass/Vol] 25 mg/dL High 7-18 [facility] Comment on above: Order Comment: 107.1 Performed By: #### L 503.6030, L503.0105, L506.0250, L500.4050, L100.0100, L101.9900 #### [facility] Laboratory [address] [place], [address] Eosinophil percentageOrdered By: Mario Mak on 12-24-2024 Eosinophils/100 WBC (Bld) 5.1 % High 0-5 [facility] Erythrocyte Sed Rateon 12-24 SED RATE 38 mm/hr High 0-30 [facility] Comment on above: Order Comment: 107.1 Performed By: #### L 503.6030, L503.0105, L506.0250, L500.4050, L100.0100, L101.9900 #### [facility] Laboratory [address] [place], [place], [id number] Erythrocyte distribution wid th (RBC) [Ratio]Ordered By: Mario Mak on 12-24-2024 Erythrocyte distribution width (RBC) [Entitic vol] 55.5 fL High 35.1-43.9 [facility] Erythrocyte distribution wid th ratioOrdered By: Mario Mak on 12-24-2024 Erythrocyte distribution width (RBC) [Ratio] 16.8 % High 11.6-14.6 [facility] Erythrocyte distribution wid th standard deviationOrdered By: Mario Mak on 12-24-2024 Erythrocyte distribution width (RBC) [Ratio] 55.5 fl High 35.1-43.9 [facility] Erythrocyte sedimentation ra teOrdered By: Mario Mak on 12-24-2024 ESR (Bld) [Velocity] 38 mm/h High 0-30 [facility] Estimated glomerular filtrat ion rate (GFR) AmericanOrdered By: Mario Mak on 12-24-2024 Estimated GFR (MDRD) Amer 83 mL/min >60 [facility] Comment on above: GFR Calc Folates, (Folic Acid)on 12-15 FOLATES 6.70 ng/mL Normal 3.1-55.4 [facility] Comment on above: Order Comment: 107.1 N Performed By: #### L 503.6030, L503.0105, L506.0250, L500.4050, L100.0100, L101.9900 #### [facility] [address] [place], [place], [id number] Folic acid measurementOrdere d By: Mario Mak on 12-24-2024 Folate 6.70 ng/mL 3.1-55.4 [facility] Glomerular filtration rate ( GFR) estimationOrdered By: Mario Mak on 12-24-2024 Estimated GFR (MDRD) Non-Af Amer 68 mL/min >60 [facility] Comment on above: Non- GFR Calc GFR/1.73 sq M.predicted among non-blacks MDRD (S/P/Bld) [Vol rate/Area] 68 mL/min/{1.73_m2} >60 [facility] Comment on above: Non- GFR Calc Glucose measurementOrdered B y: Mario Mak on 12-24-2024 Glucose [Mass/Vol] 76 mg/dL 74-106 [facility] Hematocrit Auto (Bld) [Volum e fraction]Ordered By: Mario Mak on 12-24-2024 Hematocrit (Bld) [Volume fraction] 27.5 % Low 37-47 [facility] Hemoglobin measurementOrdere d By: Mario Mak on 12-24-2024 Hemoglobin (Bld) [Mass/Vol] 8.9 g/dL Low 12.0-15.0 [facility] Immature granulocytes/100 WB C Auto (Bld)Ordered By: Mario Mak on 12-24-2024 Immature granulocytes/100 WBC (Bld) 0.900 % 0.0-0.9 [facility] Comment on above: IG% - Immature Granu locytes (promyelocytes, myelocytes and metamyelocytes) > 1% indicates that a LEFT SHIFT is Present. Iron (Unsp spec) [Mass/Mass] Ordered By: Mario Mak on 12-24-2024 Iron [Mass/Vol] 58 ug/dL 50-170 [facility] Iron measurement (mass/mass) Ordered By: Mario Mak on 12-24-2024 Iron (Unsp spec) [Mass/Mass] 58 ug/dL 50-170 [facility] Iron saturation [Mass fracti on]Ordered By: Mario Mak on 12-24-2024 Iron Saturation 35.4 % 15.0-55.0 [facility] Iron+Iron Binding Capacityon 12-24-2024 Iron [Mass/Vol] 58 ug/dL Normal 50-170 [facility] Comment on above: Order Comment: 107.1 Performed By: #### L 503.6030, L503.0105, L506.0250, L500.4050, L100.0100, L101.9900 #### [facility] Laboratory [address] [place], [place], [id number] ([phone] IRON SATURATION 35.4 Normal 15.0-55.0 [facility] Comment on above: Order Comment: 107.1 Performed By: #### L 503.6030, L503.0105, L506.0250, L500.4050, L100.0100, L101.9900 #### [facility] Laboratory [address] [place], [address] TIBC 164 ug/dL Low 250-450 [facility] Comment on above: Order Comment: 107.1 Performed By: #### L 503.6030, L503.0105, L506.0250, L500.4050, L100.0100, L101.9900 #### [facility] Laboratory [address] [place], [place], [id number] Laboratory - Chemistry and C hemistry - challengeOrdered By: Mario Mak on 12-24-2024 AST [Catalytic activity/Vol] 17 U/L 15-37 [facility] Lymphocytes Auto (Unsp spec) [#/Vol]Ordered By: Mario Mak on 12-24-2024 Lymphocytes (Bld) [#/Vol] 0.98 10*3/uL 0.83-4.51 [facility] Lymphocytes/100 WBC Auto (Un sp spec)Ordered By: Mario Mak on 12-24-2024 Lymphocytes/100 WBC (Bld) 17.8 % Low 19-41 [facility] MCV (mean corpuscular volume ) determinationOrdered By: Mario Mak on 12-24-2024 MCV (RBC) [Entitic vol] 89.6 fL 81-[address] [facility] Mean corpuscular hemoglobin (MCH) determinationOrdered By: Mario Mak on 12-24-2024 MCH (RBC) [Entitic mass] 29.0 pg 27.0-32.0 [facility] Mean corpuscular hemoglobin concentration (MCHC) determinationOrdered By: Mario Mak on 12-24-2024 MCHC (RBC) [Mass/Vol] 32.4 g/dL 32-36 [facility] Mean platelet volume determi nationOrdered By: Mario Mak on 12-24-2024 Platelet mean volume (Bld) [Entitic vol] 9.3 fL 6.2-12.0 [facility] Monocyte percentageOrdered B y: Mario Mak on 12-24-2024 Monocytes/100 WBC (Bld) 7.3 % 0-[address] [facility] Neutrophil percentageOrdered By: Mario Mak on 12-24-2024 Neutrophils/100 WBC (Bld) 68.4 % 47-70 [facility] Nucleated red blood cell per centageOrdered By: Mario Mak on 12-24-2024 Nucleated RBC/100 WBC (Bld) [Ratio] 0 % 0-5 [facility] Platelet countOrdered By: Moreno on 12-24-2024 Platelets (Bld) [#/Vol] 309 10*3/uL 150-450 [facility] Potassium measurementOrdered By: Mario Mak on 12-24-2024 Potassium [Moles/Vol] 4.0 mmol/L 3.5-5.1 [facility] RBC Auto (Bld) [#/Vol]Ordere d By: Mario Mak on 12-24-2024 RBC (Bld) [#/Vol] 3.07 10*6/uL Low 4.2-5.4 [facility] Serum anion gap measurementO rdered By: Mario Mak on 12-24-2024 Anion gap [Moles/Vol] 7 mmol/L 5-15 [facility] Serum globulin measurementOr dered By: Mario Mak on 12-24-2024 Globulin (S) [Mass/Vol] 3.4 g/dL 2.2-4.[address] [facility] Serum or plasma alanine melara otransferase (ALT) measurementOrdered By: Mario Mak on 12-24-2024 ALT [Catalytic activity/Vol] U/L Low 13-56 [facility] Serum or plasma albumin roma urement (mass/volume)Ordered By: Mario Mak on 12-24-2024 Albumin [Mass/Vol] 2.0 g/dL Low 3.2-5.0 [facility] Serum or plasma alkaline krystal sphatase measurementOrdered By: Mario Mak on 12-24-2024 ALP [Catalytic activity/Vol] 108 U/L 45-117 [facility] Serum or plasma calcium roma urement (mass/volume)Ordered By: Mario Mak on 12-24-2024 Calcium [Mass/Vol] 8.8 mg/dL 8.5-10.1 [facility] Serum or plasma creatinine m easurement (mass/volume)Ordered By: Mario Mak on 12-24-2024 Creatinine [Mass/Vol] 0.83 mg/dL 0.55-1.02 [facility] Comment on above: The validity of the calculated GFR & GFRAA in patients over 70 years has not been determined. Clinical correlation is essential. Serum or plasma iron saturat ion measurement (mass fraction)Ordered By: Mario Mak on 12-24-2024 Iron saturation [Mass fraction] 35.4 % 15.0-55.0 [facility] Serum or plasma urea nitroge n measurement (mass/volume)Ordered By: Mario Mak on 12-24-2024 Urea nitrogen [Mass/Vol] 25 mg/dL High 7-18 [facility] Sodium levelOrdered By: Mario Mak on 12-24-2024 Sodium [Moles/Vol] 141 mmol/L 136-145 [facility] TIBCOrdered By: Mario Mak on 12-24-2024 Total Iron Binding Capacity 164 ug/dL Low 250-450 [facility] Total proteinOrdered By: Shwetha Mak on 12-24-2024 Protein [Mass/Vol] 5.4 g/dL Low 6.4-8.2 [facility] Vitamin B12on 12-24-2024 Cobalamin (Vitamin B12) [Mass/Vol] 407 pg/mL Normal 211-911 [facility] Comment on above: Order Comment: 107.1 Performed By: #### L 503.6030, L503.0105, L506.0250, L500.4050, L100.0100, L101.9900 #### [facility] Laboratory [address] [place], [address] Vitamin B12 measurementOrder ed By: Mario Mak on 12-24-2024 Cobalamin (Vitamin B12) [Mass/Vol] 407 pg/mL 211-911 [facility] White blood cell (WBC) count Ordered By: Mario Mak on 12-24-2024 WBC (Bld) [#/Vol] 5.5 10*3/uL 4.4-11.0 [facility] Albumin to globulin ratioOrd ered By: Mario Mak on 12-17-2024 Albumin/Globulin [Mass ratio] 0.6 {ratio} Low 0.9-2.4 [facility] Bilirubin, totalOrdered By: Mario Mak on 12-17-2024 Bilirubin [Mass/Vol] 0.30 mg/dL 0.20-1.00 [facility] Comment on above: For patients on eltr ombopag therapy, use of [facility] [place] TBIL is not recommended. Blood urea nitrogen (BUN)/cr eatinine ratioOrdered By: Mario Mak on 12-17-2024 Urea nitrogen/Creatinine [Mass ratio] 38.9 mg/mg High 10-20 [facility] CBC-Complete Blood Cnt No Di ffon 12-17-2024 Erythrocyte distribution width (RBC) [Ratio] 17.8 % High 11.6-14.6 [facility] Comment on above: Order Comment: 107.1 Performed By: #### L 101.9900, L100.0500, L500.4050 #### [facility] Laboratory [address] [place], [address] Hematocrit (Bld) [Volume fraction] 24.9 % Low 37-47 [facility] Comment on above: Order Comment: 107.1 Performed By: #### L 101.9900, L100.0500, L500.4050 #### [facility] Laboratory [address] [place], [address] Hemoglobin (Bld) [Mass/Vol] 7.7 g/dL Low 12.0-15.0 [facility] Comment on above: Order Comment: 107.1 Performed By: #### L 101.9900, L100.0500, L500.4050 #### [facility] Laboratory [address] [place], [address] MCH (RBC) [Entitic mass] 28.3 pg Normal 27.0-32.0 [facility] Comment on above: Order Comment: 107.1 Performed By: #### L 101.9900, L100.0500, L500.4050 #### [facility] Laboratory [address] [place], [address] MCHC (RBC) [Mass/Vol] 30.9 g/dL Low 32-36 [facility] Comment on above: Order Comment: 107.1 Performed By: #### L 101.9900, L100.0500, L500.4050 #### [facility] Laboratory [address] [place], [address] MCV (RBC) [Entitic vol] 91.5 fL Normal 81-[address] [facility] Comment on above: Order Comment: 107.1 Performed By: #### L 101.9900, L100.0500, L500.4050 #### [facility] Laboratory [address] [place], [address] Platelet mean volume (Bld) [Entitic vol] 8.7 fL Normal 6.2-12.0 [facility] Comment on above: Order Comment: 107.1 Performed By: #### L 101.9900, L100.0500, L500.4050 #### [facility] Laboratory [address] [place], [address] Platelets (Bld) [#/Vol] 391 10*3/uL Normal 150-450 [facility] Comment on above: Order Comment: 107.1 Performed By: #### L 101.9900, L100.0500, L500.4050 #### [facility] Laboratory [address] [place], [address] RBC (Bld) [#/Vol] 2.72 10*6/uL Low 4.2-5.4 [facility] Comment on above: Order Comment: 107.1 Performed By: #### L 101.9900, L100.0500, L500.4050 #### [facility] Laboratory [address] [place], [address] RDW SD 59.4 fl High 35.1-43.9 [facility] Comment on above: Order Comment: 107.1 Performed By: #### L 101.9900, L100.0500, L500.4050 #### [facility] Laboratory [address] [place], [address] WBC (Bld) [#/Vol] 7.6 10*3/uL Normal 4.4-11.0 [facility] Comment on above: Order Comment: 107.1 Performed By: #### L 101.9900, L100.0500, L500.4050 #### [facility] Laboratory [address] [place], [address] Carbon dioxide measurementOr dered By: Mario Mak on 12-17-2024 CO2 [Moles/Vol] 25.0 mmol/L 21.0-32.0 [facility] Chloride measurementOrdered By: Mario Mak on 12-17-2024 Chloride [Moles/Vol] 104 mmol/L 98-107 [facility] Comprehensive Metabolic Prof ilon 12-17-2024 Albumin [Mass/Vol] 1.9 g/dL Low 3.2-5.0 [facility] Comment on above: Order Comment: 107.1 Performed By: #### L 101.9900, L100.0500, L500.4050 #### [facility] Laboratory [address] [place], [address] Albumin/Globulin [Mass ratio] 0.6 {ratio} Low 0.9-2.4 [facility] Comment on above: Order Comment: 107.1 Performed By: #### L 101.9900, L100.0500, L500.4050 #### [facility] Laboratory [address] [place], [address] ALK P 96 U/L Normal 45-117 [facility] Comment on above: Order Comment: 107.1 Performed By: #### L 101.9900, L100.0500, L500.4050 #### [facility] Laboratory [address] [place], [address] ALT [Catalytic activity/Vol] 9 U/L Low 13-56 [facility] Comment on above: Order Comment: 107.1 Performed By: #### L 101.9900, L100.0500, L500.4050 #### [facility] Laboratory [address] [place], [address] AST [Catalytic activity/Vol] 26 U/L Normal 15-37 [facility] Comment on above: Order Comment: 107.1 Performed By: #### L 101.9900, L100.0500, L500.4050 #### [facility] Laboratory [address] [place], [address] Bilirubin [Mass/Vol] 0.30 mg/dL Normal 0.20-1.00 [facility] Comment on above: Order Comment: 107.1 Result Comment: For patients on eltrombopag therapy, use of [facility] [place] [facility] TBIL is not recommended. Performed By: #### L 101.9900, L100.0500, L500.4050 #### [facility] Laboratory [address] [place], [address] BUN/CRE 38.9 RATIO High 10-20 [facility] Comment on above: Order Comment: 107.1 Performed By: #### L 101.9900, L100.0500, L500.4050 #### [facility] Laboratory [address] [place], [address] CA,Total 8.4 mg/dL Low 8.5-10.1 [facility] Comment on above: Order Comment: 107.1 Performed By: #### L 101.9900, L100.0500, L500.4050 #### [facility] Laboratory [address] [place], [address] Chloride [Moles/Vol] 104 mmol/L Normal 98-107 [facility] Comment on above: Order Comment: 107.1 Performed By: #### L 101.9900, L100.0500, L500.4050 #### [facility] Laboratory [address] [place], [address] CO2 [Moles/Vol] 25.0 mmol/L Normal 21.0-32.0 [facility] Comment on above: Order Comment: 107.1 Performed By: #### L 101.9900, L100.0500, L500.4050 #### [facility] Laboratory [address] [place], [address] Creatinine [Mass/Vol] 0.77 mg/dL Normal 0.55-1.02 [facility] Comment on above: Order Comment: 107.1 Result Comment: The validity of the calculated GFR GFRAA in patients over 70 years has not been determined. Clinical correlation is essential. Performed By: #### L 101.9900, L100.0500, L500.4050 #### [facility] Laboratory [address] [place], [address] EST GFR - AA 91 mL/min Normal >60 [facility] Comment on above: Order Comment: 107.1 Result Comment: Afri can [place] GFR Calc Performed By: #### L 101.9900, L100.0500, L500.4050 #### [facility] Laboratory [address] [place], [address] GAP 8 Normal 5-15 [facility] Comment on above: Order Comment: 107.1 Performed By: #### L 101.9900, L100.0500, L500.4050 #### [facility] Laboratory [address] [place], [address] GFR/1.73 sq M.predicted among non-blacks MDRD (S/P/Bld) [Vol rate/Area] 75 mL/min/{1.73_m2} Normal >60 [facility] Comment on above: Order Comment: 107.1 Result Comment: Non- GFR Calc Performed By: #### L 101.9900, L100.0500, L500.4050 #### [facility] Laboratory [address] [place], [address] Globulin (S) [Mass/Vol] 3.2 g/dL Normal 2.2-4.2 [facility] Comment on above: Order Comment: 107.1 Performed By: #### L 101.9900, L100.0500, L500.4050 #### [facility] Laboratory [address] [place], [address] Glucose [Mass/Vol] 203 mg/dL High 74-106 [facility] Comment on above: Order Comment: 107.1 Result Comment: Gluc ose result greater than or equal to 200 mg/dL suggests DIABETES MELLITUS per A.D.A. criteria. Performed By: #### L 101.9900, L100.0500, L500.4050 #### [facility] Laboratory [address] [place], [address] Potassium [Moles/Vol] 4.2 mmol/L Normal 3.5-5.1 [facility] Comment on above: Order Comment: 107.1 Performed By: #### L 101.9900, L100.0500, L500.4050 #### [facility] Laboratory [address] [place], [address] Sodium [Moles/Vol] 137 mmol/L Normal 136-145 [facility] Comment on above: Order Comment: 107.1 Performed By: #### L 101.9900, L100.0500, L500.4050 #### [facility] Laboratory [address] [place], [address] T PROT 5.1 g/dL Low 6.4-8.2 [facility] Comment on above: Order Comment: 107.1 Performed By: #### L 101.9900, L100.0500, L500.4050 #### [facility] Laboratory [address] [place], [address] Urea nitrogen [Mass/Vol] 30 mg/dL High 7-18 [facility] Comment on above: Order Comment: 107.1 Performed By: #### L 101.9900, L100.0500, L500.4050 #### [facility] Laboratory [address] [place], [address] Erythrocyte Sed Rateon 12-17 SED RATE 24 mm/hr Normal 0-30 [facility] Comment on above: Order Comment: 107.1 Performed By: #### L 101.9900, L100.0500, L500.4050 #### [facility] [place], [address] Erythrocyte distribution wid th (RBC) [Ratio]Ordered By: Mario Mak on 12-17-2024 Erythrocyte distribution width (RBC) [Entitic vol] 59.4 fL High 35.1-43.9 [facility] Erythrocyte distribution wid th ratioOrdered By: Mario Mak on 12-17-2024 Erythrocyte distribution width (RBC) [Ratio] 17.8 % High 11.6-14.6 [facility] Erythrocyte distribution wid th standard deviationOrdered By: Mario Mak on 12-17-2024 Erythrocyte distribution width (RBC) [Ratio] 59.4 fl High 35.1-43.9 [facility] Erythrocyte sedimentation ra teOrdered By: Mario Mak on 12-17-2024 ESR (Bld) [Velocity] 24 mm/h 0-30 [facility] Estimated glomerular filtrat ion rate (GFR) AmericanOrdered By: Mario Mak on 12-17-2024 Estimated GFR (MDRD) Amer 91 mL/min >60 [facility] Comment on above: GFR Calc Glomerular filtration rate ( GFR) estimationOrdered By: Mario Mak on 12-17-2024 Estimated GFR (MDRD) Non-Af Amer 75 mL/min >60 [facility] Comment on above: Non- GFR Calc GFR/1.73 sq M.predicted among non-blacks MDRD (S/P/Bld) [Vol rate/Area] 75 mL/min/{1.73_m2} >60 [facility] Comment on above: Non- GFR Calc Glucose measurementOrdered B y: Mario Mak on 12-17-2024 Glucose [Mass/Vol] 203 mg/dL High 74-106 [facility] Comment on above: Glucose result great er than or equal to 200 mg/dLsuggests DIABETES MELLITUS per A.D.A. criteria. Hematocrit Auto (Bld) [Volum e fraction]Ordered By: Mario Mak on 12-17-2024 Hematocrit (Bld) [Volume fraction] 24.9 % Low 37-47 [facility] Hemoglobin measurementOrdere d By: Mario Mak on 12-17-2024 Hemoglobin (Bld) [Mass/Vol] 7.7 g/dL Low 12.0-15.0 [facility] Laboratory - Chemistry and C hemistry - challengeOrdered By: Mario Mak on 12-17-2024 AST [Catalytic activity/Vol] 26 U/L 15-37 [facility] MCV (mean corpuscular volume ) determinationOrdered By: Mario Mak on 12-17-2024 MCV (RBC) [Entitic vol] 91.5 fL 81-[address] [facility] Mean corpuscular hemoglobin (MCH) determinationOrdered By: Mario Mak on 12-17-2024 MCH (RBC) [Entitic mass] 28.3 pg 27.0-32.0 [facility] Mean corpuscular hemoglobin concentration (MCHC) determinationOrdered By: Mario Mak on 12-17-2024 MCHC (RBC) [Mass/Vol] 30.9 g/dL Low 32-36 [facility] Mean platelet volume determi nationOrdered By: Mario Mak on 12-17-2024 Platelet mean volume (Bld) [Entitic vol] 8.7 fL 6.2-12.0 [facility] Platelet countOrdered By: Moreno on 12-17-2024 Platelets (Bld) [#/Vol] 391 10*3/uL 150-450 [facility] Potassium measurementOrdered By: Mario Mak on 12-17-2024 Potassium [Moles/Vol] 4.2 mmol/L 3.5-5.1 [facility] RBC Auto (Bld) [#/Vol]Ordere d By: Mario Mak on 12-17-2024 RBC (Bld) [#/Vol] 2.72 10*6/uL Low 4.2-5.4 [facility] Serum anion gap measurementO rdered By: Mario Mak on 12-17-2024 Anion gap [Moles/Vol] 8 mmol/L 5-15 [facility] Serum globulin measurementOr dered By: Mario Mak on 12-17-2024 Globulin (S) [Mass/Vol] 3.2 g/dL 2.2-4.[address] [facility] Serum or plasma alanine melara otransferase (ALT) measurementOrdered By: Mario Mak on 12-17-2024 ALT [Catalytic activity/Vol] 9 U/L Low 13-56 [facility] Serum or plasma albumin roma urement (mass/volume)Ordered By: Mario Mak on 12-17-2024 Albumin [Mass/Vol] 1.9 g/dL Low 3.2-5.0 [facility] Serum or plasma alkaline krystal sphatase measurementOrdered By: Mario aMk on 12-17-2024 ALP [Catalytic activity/Vol] 96 U/L 45-117 [facility] Serum or plasma calcium roma urement (mass/volume)Ordered By: Mario Mak on 12-17-2024 Calcium [Mass/Vol] 8.4 mg/dL Low 8.5-10.1 [facility] Serum or plasma creatinine m easurement (mass/volume)Ordered By: Mario Mak on 12-17-2024 Creatinine [Mass/Vol] 0.77 mg/dL 0.55-1.02 [facility] Comment on above: The validity of the calculated GFR & GFRAA in patients over 70 years has not been determined. Clinical correlation is essential. Serum or plasma urea nitroge n measurement (mass/volume)Ordered By: Mario Mak on 12-17-2024 Urea nitrogen [Mass/Vol] 30 mg/dL High 7-18 [facility] Sodium levelOrdered By: Mario Mak on 12-17-2024 Sodium [Moles/Vol] 137 mmol/L 136-145 [facility] Total proteinOrdered By: Shwetha Mak on 12-17-2024 Protein [Mass/Vol] 5.1 g/dL Low 6.4-8.2 [facility] White blood cell (WBC) count Ordered By: Mario Mak on 12-17-2024 WBC (Bld) [#/Vol] 7.6 10*3/uL 4.4-11.0 [facility] ANES POSTPROC EVALon 025 ANES POSTPROC EVAL Normal [facility] ANES PRE-OPon 12-12-2024 ANES PRE-OP Normal [facility] BRIEF OP NOTon 12-12-2024 BRIEF OP NOT Normal [facility] Basic metabolic 2000 panelon 12-12-2024 Anion gap [Moles/Vol] 9 mmol/L Normal 8-15 [facility] Comment on above: Order Comment: Speci men Type: BLOOD SPECIMENOrdering Facility: [facility] Address: [address] [place] [address] Performed By: #### 2 4321-2 ####[facility]ORATORYCLIA [id number] [place] [address] [place] Calcium [Mass/Vol] 8.9 mg/dL Normal 8.5-10.2 [facility] Comment on above: Order Comment: Speci men Type: BLOOD SPECIMENOrdering Facility: [facility] Address: [address] [place] [address] Performed By: #### 2 4321-2 ####[facility]ORATORYCLIA [id number] [place] [address] [place] Chloride [Moles/Vol] 104 mmol/L Normal 98-107 [facility] Comment on above: Order Comment: Speci men Type: BLOOD SPECIMENOrdering Facility: [facility] Address: [address] [place] [address] Performed By: #### 2 4321-2 ####[facility] LABORATORYCLIA [id number] [place] [id number] [place] CO2 [Moles/Vol] 24 mmol/L Normal 22-30 [facility] Comment on above: Order Comment: Speci men Type: BLOOD SPECIMENOrdering Facility: [facility] Address: [address] [place] [address] Performed By: #### 2 4321-2 ####[facility]ORATORYCLIA [id number] [place] [id number] [place] Creatinine [Mass/Vol] 0.74 mg/dL Normal 0.58-0.96 [facility] Comment on above: Order Comment: Speci men Type: BLOOD SPECIMENOrdering Facility: [facility] Address: [address] [place] [address] Performed By: #### 2 4321-2 ####[facility] LABORATORYCLIA [id number] [place] [id number] [facility] Creatinine and Glomerular filtration rate.predicted panel (S/P/Bld) 78 mL/min/1.73m??? Normal >=60 [facility] Comment on above: Order Comment: Fan meade Type: BLOOD SPECIMENOrdering Facility: [facility] Address: [address] [place] [address] Result Comment: Hilda mated Glomerular Filtration Rate [...] Performed By: #### 2 4321-2 ####[facility] LABORATORYCLIA [id number] [place] [id number] [place] Glucose [Mass/Vol] 139 mg/dL High 74-99 [facility] Comment on above: Order Comment: Fan meade Type: BLOOD SPECIMENOrdering Facility: [facility] Address: [address] [place] [address] Result Comment: The [place] [employer] (ADA) provides guidance for cutoff [...] Standards of Medical Care in Diabetes 2016, [place] [employer]. Diabetes Care. 2016.39(Suppl 1). Performed By: #### 2 4321-2 ####[facility] LABORATORYCLIA [id number] [place] [id number] [place] Potassium [Moles/Vol] 3.8 mmol/L Normal 3.7-5.1 [facility] Comment on above: Order Comment: Speci men Type: BLOOD SPECIMENOrdering Facility: [facility] Address: [address] [place] [address] Performed By: #### 2 4321-2 ####[facility] LABORATORYCLIA [id number] [address] [place] Sodium [Moles/Vol] 137 mmol/L Normal 136-144 [facility] Comment on above: Order Comment: Speci men Type: BLOOD SPECIMENOrdering Facility: [facility] Address: [address] [place] [address] Performed By: #### 2 4321-2 ####[facility] LABORATORYCLIA [id number] [address] [place] Urea nitrogen [Mass/Vol] 24 mg/dL High 7-21 [facility] Comment on above: Order Comment: Speci men Type: BLOOD SPECIMENOrdering Facility: [facility] Address: [address] [place] [address] Performed By: #### 2 4321-2 ####[facility] LABORATORYCLIA [id number] [address] [place] CASE MANAGEMon 12-12-2024 CASE MANAGEM Normal [facility] CASE MANAGEM Normal [facility] CBC W Auto Differential pane l (Bld)on 12-12-2024 Basophils (Bld) [#/Vol] 0.03 10*3/uL Normal <0.11 [facility] Comment on above: Order Comment: Speci men Type: BLOOD SPECIMENOrdering Facility: [facility] Address: [address] [place] [address] Performed By: #### 5 7021-8 ####[facility]ORATORYCLIA [id number] [address] [place] Basophils/100 WBC (Bld) 0.3 % Normal [facility] Comment on above: Order Comment: Speci men Type: BLOOD SPECIMENOrdering Facility: [facility] Address: [address] [place] [address] Performed By: #### 5 7021-8 ####[facility]ORATORYCLIA [id number] [address] [place] Differential cell count method Nom (Bld) Auto Normal [facility] Comment on above: Order Comment: Speci men Type: BLOOD SPECIMENOrdering Facility: [facility] Address: [address] [place] [address] Performed By: #### 5 7021-8 ####[facility] LABORATORYCLIA [id number] [place] [address] [place] Eosinophils (Bld) [#/Vol] 0.15 10*3/uL Normal <0.46 [facility] Comment on above: Order Comment: Speci men Type: BLOOD SPECIMENOrdering Facility: [facility] Address: [address] [place] [address] Performed By: #### 5 7021-8 ####[facility] LABORATORYCLIA [id number] [address] [place] Eosinophils/100 WBC (Bld) 1.7 % Normal [facility] Comment on above: Order Comment: Speci men Type: BLOOD SPECIMENOrdering Facility: [facility] Address: [address] [place] [address] Performed By: #### 5 7021-8 ####[facility] LABORATORYCLIA [id number] [address] [place] Erythrocyte distribution width (RBC) [Ratio] 16.7 % High 11.5-15.0 [facility] Comment on above: Order Comment: Speci men Type: BLOOD SPECIMENOrdering Facility: [facility] Address: [address] [place] [address] Performed By: #### 5 7021-8 ####[facility]ORATORYCLIA [id number] [address] [place] Hematocrit (Bld) [Volume fraction] 24.4 % Low 36.0-46.0 [facility] Comment on above: Order Comment: Speci men Type: BLOOD SPECIMENOrdering Facility: [facility] Address: [address] [place] [address] Performed By: #### 5 7021-8 ####[facility]ORATORYCLIA [id number] [place] [address] [place] Hemoglobin (Bld) [Mass/Vol] 7.8 g/dL Low 11.5-15.5 [facility] Comment on above: Order Comment: Speci men Type: BLOOD SPECIMENOrdering Facility: [facility] Address: [address] [place] [address] Performed By: #### 5 7021-8 ####[facility]ORATORYCLIA [id number] [place] [address] [place] Immature granulocytes (Bld) [#/Vol] 0.10 10*3/uL High <0.10 [facility] Comment on above: Order Comment: Speci men Type: BLOOD SPECIMENOrdering Facility: [facility] Address: [address] [place] [address] Performed By: #### 5 7021-8 ####[facility] LABORATORYCLIA [id number] [address] [place] Immature granulocytes/100 WBC (Bld) 1.2 % Normal [facility] Comment on above: Order Comment: Speci men Type: BLOOD SPECIMENOrdering Facility: [facility] Address: [address] [place] [address] Performed By: #### 5 7021-8 ####[facility] LABORATORYCLIA [id number] [place] [address] [place] Lymphocytes (Bld) [#/Vol] 1.19 10*3/uL Normal 1.00-4.00 [facility] Comment on above: Order Comment: Speci men Type: BLOOD SPECIMENOrdering Facility: [facility] Address: [address] [place] [address] Performed By: #### 5 7021-8 ####[facility]ORATORYCLIA [id number] [address] [place] Lymphocytes/100 WBC (Bld) 13.7 % Normal [facility] Comment on above: Order Comment: Speci men Type: BLOOD SPECIMENOrdering Facility: [facility] Address: [address] [place] [address] Performed By: #### 5 7021-8 ####[facility]ORATORYCLIA [id number] [address] MCH (RBC) [Entitic mass] 28.1 pg Normal 26.0-34.0 [facility] Comment on above: Order Comment: Speci men Type: BLOOD SPECIMENOrdering Facility: [facility] Address: [address] [place] [address] Performed By: #### 5 7021-8 ####[facility]ORATORYCLIA [id number] [address] [place] MCHC (RBC) [Mass/Vol] 32.0 g/dL Normal 30.5-36.0 [facility] Comment on above: Order Comment: Speci men Type: BLOOD SPECIMENOrdering Facility: [facility] Address: [address] [place] [address] Performed By: #### 5 7021-8 ####[facility]ORATORYCLIA [id number] [address] MCV (RBC) [Entitic vol] 87.8 fL Normal 80.0-100.0 [facility] Comment on above: Order Comment: Speci men Type: BLOOD SPECIMENOrdering Facility: [facility] Address: [address] [place] [address] Performed By: #### 5 7021-8 ####[facility]ORATORYCLIA [id number] [address] Monocytes (Bld) [#/Vol] 0.66 10*3/uL Normal <0.87 [facility] Comment on above: Order Comment: Speci men Type: BLOOD SPECIMENOrdering Facility: [facility] Address: [address] [place] [address] Performed By: #### 5 7021-8 ####[facility]ORATORYCLIA [id number] [address] Monocytes/100 WBC (Bld) 7.6 % Normal [facility] Comment on above: Order Comment: Speci men Type: BLOOD SPECIMENOrdering Facility: [facility] Address: [address] [place] [address] Performed By: #### 5 7021-8 ####[facility] LABORATORYCLIA [id number] [place] [address] [place] Neutrophils (Bld) [#/Vol] 6.54 10*3/uL Normal 1.45-7.50 [facility] Comment on above: Order Comment: Speci men Type: BLOOD SPECIMENOrdering Facility: [facility] Address: [address] [place] [address] Performed By: #### 5 7021-8 ####[facility]ORATORYCLIA [id number] [place] [address] [place] Neutrophils/100 WBC (Bld) 75.5 % Normal [facility] Comment on above: Order Comment: Speci men Type: BLOOD SPECIMENOrdering Facility: [facility] Address: [address] [place] [address] Performed By: #### 5 7021-8 ####[facility]ORATORYCLIA [id number] [place] [address] [place] Nucleated RBC (Bld) [#/Vol] 10*3/uL Normal <0.01 [facility] Comment on above: Order Comment: Speci men Type: BLOOD SPECIMENOrdering Facility: [facility] Address: [address] [place] [address] Performed By: #### 5 7021-8 ####[facility]ORATORYCLIA [id number] [address] [place] Nucleated RBC/100 WBC (Bld) [Ratio] 0.0 /100 WBC Normal [facility] Comment on above: Order Comment: Speci men Type: BLOOD SPECIMENOrdering Facility: [facility] Address: [address] [place] [address] Performed By: #### 5 7021-8 ####[facility]ORATORYCLIA [id number] [address] [place] Platelet mean volume (Bld) [Entitic vol] 8.0 fL Low 9.0-12.7 [facility] Comment on above: Order Comment: Speci men Type: BLOOD SPECIMENOrdering Facility: [facility] Address: [address] [place] [id number] Performed By: #### 5 7021-8 ####[facility]ORATORYCLIA [id number] [address] [place] Platelets (Bld) [#/Vol] 571 10*3/uL High 150-400 [facility] Comment on above: Order Comment: Speci men Type: BLOOD SPECIMENOrdering Facility: [facility] Address: [facility] [place] [id number] Performed By: #### 5 7021-8 ####[facility] LABORATORYCLIA [id number] [place] [address] [place] RBC (Bld) [#/Vol] 2.78 10*6/uL Low 3.90-5.[address] [facility] Comment on above: Order Comment: Speci men Type: BLOOD SPECIMENOrdering Facility: [facility] Address: [address] [place] [address] Performed By: #### 5 7021-8 ####[facility]ORATORYCLIA [id number] [address] [place] WBC (Bld) [#/Vol] 8.67 10*3/uL Normal 3.70-11.[address] [facility] Comment on above: Order Comment: Speci men Type: BLOOD SPECIMENOrdering Facility: [facility] Address: [address] [place], [place] [address] Performed By: #### 5 7021-8 ####[facility] LABORATORYCLIA [id number] [place] [id number] [facility] [place] CNDSon 12-12-2024 CNDS Normal [facility] CONSULT PROGon 12-12-2024 CONSULT PROG Normal [facility] CONSULT PROG Normal [facility] CONSULT PROG Normal [facility] OPERATIVE NOon 12-12-2024 OPERATIVE NO Normal [facility] Basic metabolic 2000 panelon 12-11-2024 Anion gap [Moles/Vol] 11 mmol/L Normal 8-15 [facility] Comment on above: Order Comment: Speci men Type: BLOOD SPECIMENOrdering Facility: [facility] Address: [address] [place] [address] Performed By: #### 2 4321-2 ####[facility] LABORATORYCLIA [id number] [place] [address] [place] Calcium [Mass/Vol] 9.1 mg/dL Normal 8.5-10.2 [facility] Comment on above: Order Comment: Speci men Type: BLOOD SPECIMENOrdering Facility: [facility] Address: [address] [place] [address] Performed By: #### 2 4321-2 ####[facility] LABORATORYCLIA [id number] [place] [address] [place] Chloride [Moles/Vol] 102 mmol/L Normal 98-107 [facility] Comment on above: Order Comment: Speci men Type: BLOOD SPECIMENOrdering Facility: [facility] Address: [address] [place] [address] Performed By: #### 2 4321-2 ####[facility] LABORATORYCLIA [id number] [place] [address] [place] CO2 [Moles/Vol] 25 mmol/L Normal 22-30 [facility] Comment on above: Order Comment: Speci men Type: BLOOD SPECIMENOrdering Facility: [facility] Address: [address] [place] [address] Performed By: #### 2 4321-2 ####[facility] LABORATORYCLIA [id number] [address] [place] Creatinine [Mass/Vol] 0.80 mg/dL Normal 0.58-0.96 [facility] Comment on above: Order Comment: Speci men Type: BLOOD SPECIMENOrdering Facility: [facility] Address: [address] [place] [address] Performed By: #### 2 4321-2 ####[facility] LABORATORYCLIA [id number] [address] Creatinine and Glomerular filtration rate.predicted panel (S/P/Bld) 71 mL/min/1.73m??? Normal >=60 [facility] Comment on above: Order Comment: Speci men Type: BLOOD SPECIMENOrdering Facility: [facility] Address: [address] [place] [address] Result Comment: Hilda mated Glomerular Filtration Rate [...] actual GFR. Performed By: #### 2 4321-2 ####[facility]ORATORYCLIA [id number] [place] [id number] [place] Glucose [Mass/Vol] 203 mg/dL High 74-99 [facility] Comment on above: Order Comment: Fan meade Type: BLOOD SPECIMENOrdering Facility: [facility] Address: [address] [place] [address] Result Comment: The [place] [employer] (ADA) provides guidance for cutoff [...] Standards of Medical Care in Diabetes 2016, [place] [employer]. Diabetes Care. 2016.39(Suppl 1). Performed By: #### 2 4321-2 ####[facility]ORATORYCLIA [id number] [place] [id number] [place] Potassium [Moles/Vol] 3.8 mmol/L Normal 3.7-5.1 [facility] Comment on above: Order Comment: Fan meade Type: BLOOD SPECIMENOrdering Facility: [facility] Address: [address] [place] [id number] Performed By: #### 2 4321-2 ####[facility] LABORATORYCLIA [id number] [place] [address] [place] Sodium [Moles/Vol] 138 mmol/L Normal 136-144 [facility] Comment on above: Order Comment: Speci men Type: BLOOD SPECIMENOrdering Facility: [facility] Address: [address] [place] [address] Performed By: #### 2 4321-2 ####[facility] LABORATORYCLIA [id number] [place] [address] [place] Urea nitrogen [Mass/Vol] 33 mg/dL High 7-21 [facility] Comment on above: Order Comment: Speci men Type: BLOOD SPECIMENOrdering Facility: [facility] Address: [address] [place] [address] Performed By: #### 2 4321-2 ####[facility] LABORATORYCLIA [id number] [address] [place] CASE MANAGEMon 12-11-2024 CASE MANAGEM [facility] CBC W Auto Differential pane l (Bld)on 12-11-2024 Basophils (Bld) [#/Vol] 10*3/uL Normal <0.11 [facility] Comment on above: Order Comment: Speci men Type: BLOOD SPECIMENOrdering Facility: [facility] Address: [address] [place] [address] Performed By: #### 5 7021-8 ####[facility] LABORATORYCLIA [id number] [address] [place] Basophils/100 WBC (Bld) 0.2 % Normal [facility] Comment on above: Order Comment: Speci men Type: BLOOD SPECIMENOrdering Facility: [facility] Address: [address] [place] [address] Performed By: #### 5 7021-8 ####[facility] LABORATORYCLIA [id number] [place] [address] [place] Differential cell count method Nom (Bld) Auto [facility] Comment on above: Order Comment: Speci men Type: BLOOD SPECIMENOrdering Facility: [facility] Address: [address] [place] [address] Performed By: #### 5 7021-8 ####[facility] LABORATORYCLIA [id number] [place] [address] [place] Eosinophils (Bld) [#/Vol] 0.11 10*3/uL Normal <0.46 [facility] Comment on above: Order Comment: Speci men Type: BLOOD SPECIMENOrdering Facility: [facility] Address: [address] [place] [address] Performed By: #### 5 7021-8 ####[facility] LABORATORYCLIA [id number] [address] [place] Eosinophils/100 WBC (Bld) 1.1 % Normal [facility] Comment on above: Order Comment: Speci men Type: BLOOD SPECIMENOrdering Facility: [facility] Address: [address] [place] [address] Performed By: #### 5 7021-8 ####[facility] LABORATORYCLIA [id number] [address] [place] Erythrocyte distribution width (RBC) [Ratio] 16.8 % High 11.5-15.0 [facility] Comment on above: Order Comment: Speci men Type: BLOOD SPECIMENOrdering Facility: [facility] Address: [address] [place] [address] Performed By: #### 5 7021-8 ####[facility] LABORATORYCLIA [id number] [address] Hematocrit (Bld) [Volume fraction] 25.2 % Low 36.0-46.0 [facility] Comment on above: Order Comment: Speci men Type: BLOOD SPECIMENOrdering Facility: [facility] Address: [address] [place] [address] Performed By: #### 5 7021-8 ####[facility] LABORATORYCLIA [id number] [address] [place] Hemoglobin (Bld) [Mass/Vol] 8.4 g/dL Low 11.5-15.5 [facility] Comment on above: Order Comment: Speci men Type: BLOOD SPECIMENOrdering Facility: [facility] Address: [address] [place] [address] Performed By: #### 5 7021-8 ####[facility] LABORATORYCLIA [id number] [address] [place] Immature granulocytes (Bld) [#/Vol] 0.16 10*3/uL High <0.10 [facility] Comment on above: Order Comment: Speci men Type: BLOOD SPECIMENOrdering Facility: [facility] Address: [address] [place] [address] Performed By: #### 5 7021-8 ####[facility] LABORATORYCLIA [id number] [address] [place] Immature granulocytes/100 WBC (Bld) 1.5 % Normal [facility] Comment on above: Order Comment: Speci men Type: BLOOD SPECIMENOrdering Facility: [facility] Address: [address] [place] [address] Performed By: #### 5 7021-8 ####[facility] LABORATORYCLIA [id number] [address] [place] Lymphocytes (Bld) [#/Vol] 1.13 10*3/uL Normal 1.00-4.00 [facility] Comment on above: Order Comment: Speci men Type: BLOOD SPECIMENOrdering Facility: [facility] Address: [address] [place] [address] Performed By: #### 5 7021-8 ####[facility] LABORATORYCLIA [id number] [address] Lymphocytes/100 WBC (Bld) 10.9 % Normal [facility] Comment on above: Order Comment: Speci men Type: BLOOD SPECIMENOrdering Facility: [facility] Address: [address] [place] [address] Performed By: #### 5 7021-8 ####[facility] LABORATORYCLIA [id number] [place] [address] [place] MCH (RBC) [Entitic mass] 28.7 pg Normal 26.0-34.0 [facility] Comment on above: Order Comment: Speci men Type: BLOOD SPECIMENOrdering Facility: [facility] Address: [address] [place] [address] Performed By: #### 5 7021-8 ####[facility] LABORATORYCLIA [id number] [place] [address] [place] MCHC (RBC) [Mass/Vol] 33.3 g/dL Normal 30.5-36.0 [facility] Comment on above: Order Comment: Speci men Type: BLOOD SPECIMENOrdering Facility: [facility] Address: [address] [place] [address] Performed By: #### 5 7021-8 ####[facility] LABORATORYCLIA [id number] [place] [address] [place] MCV (RBC) [Entitic vol] 86.0 fL Normal 80.0-100.0 [facility] Comment on above: Order Comment: Speci men Type: BLOOD SPECIMENOrdering Facility: [facility] Address: [address] [place] [address] Performed By: #### 5 7021-8 ####[facility] LABORATORYCLIA [id number] [place] [address] [place] Monocytes (Bld) [#/Vol] 0.64 10*3/uL Normal <0.87 [facility] Comment on above: Order Comment: Speci men Type: BLOOD SPECIMENOrdering Facility: [facility] Address: [address] [place] [address] Performed By: #### 5 7021-8 ####[facility] LABORATORYCLIA [id number] [address] Monocytes/100 WBC (Bld) 6.2 % Normal [facility] Comment on above: Order Comment: Speci men Type: BLOOD SPECIMENOrdering Facility: [facility] Address: [address] [place] [address] Performed By: #### 5 7021-8 ####[facility] LABORATORYCLIA [id number] [place] [address] [place] Neutrophils (Bld) [#/Vol] 8.31 10*3/uL High 1.45-7.50 [facility] Comment on above: Order Comment: Speci men Type: BLOOD SPECIMENOrdering Facility: [facility] Address: [address] [place] [address] Performed By: #### 5 7021-8 ####[facility] LABORATORYCLIA [id number] [place] [address] [place] Neutrophils/100 WBC (Bld) 80.1 % Normal [facility] Comment on above: Order Comment: Speci men Type: BLOOD SPECIMENOrdering Facility: [facility] Address: [address] [place] [address] Performed By: #### 5 7021-8 ####[facility] LABORATORYCLIA [id number] [place] [address] [place] Nucleated RBC (Bld) [#/Vol] 10*3/uL Normal <0.01 [facility] Comment on above: Order Comment: Speci men Type: BLOOD SPECIMENOrdering Facility: [facility] Address: [address] [place] [address] Performed By: #### 5 7021-8 ####[facility] LABORATORYCLIA [id number] [address] [place] Nucleated RBC/100 WBC (Bld) [Ratio] 0.0 /100 WBC Normal [facility] Comment on above: Order Comment: Speci men Type: BLOOD SPECIMENOrdering Facility: [facility] Address: [address] [place] [address] Performed By: #### 5 7021-8 ####[facility] LABORATORYCLIA [id number] [place] [address] [place] Platelet mean volume (Bld) [Entitic vol] 7.9 fL Low 9.0-12.7 [facility] Comment on above: Order Comment: Speci men Type: BLOOD SPECIMENOrdering Facility: [facility] Address: [address] [place] [address] Performed By: #### 5 7021-8 ####[facility] LABORATORYCLIA [id number] [place] [address] [place] Platelets (Bld) [#/Vol] 600 10*3/uL High 150-400 [facility] Comment on above: Order Comment: Speci men Type: BLOOD SPECIMENOrdering Facility: [facility] Address: [address] [place] [address] Performed By: #### 5 7021-8 ####[facility] LABORATORYCLIA [id number] [place] [address] [place] RBC (Bld) [#/Vol] 2.93 10*6/uL Low 3.90-5.[address] [facility] Comment on above: Order Comment: Speci men Type: BLOOD SPECIMENOrdering Facility: [facility] Address: [address] [place] [address] Performed By: #### 5 7021-8 ####[facility] LABORATORYCLIA [id number] [place] [id number] [place] WBC (Bld) [#/Vol] 10.37 10*3/uL Normal 3.70-11.00 [facility] Comment on above: Order Comment: Speci men Type: BLOOD SPECIMENOrdering Facility: [facility] Address: [address] [place] [address] Performed By: #### 5 7021-8 ####[facility]ORATORYCLIA [id number] [place] [id number] [place] CONSULT PROGon 12-11-2024 CONSULT PROG Normal [facility] CONSULT PROG Normal [facility] CONSULT PROG Normal [facility] CONSULT PROG Normal [facility] CONSULT PROG Normal [facility] NUTRITIONon 12-11-2024 NUTRITION Normal [facility] ANES POSTPROC EVALon 025 ANES POSTPROC EVAL [facility] ANES PRE-OPon 12-10-2024 ANES PRE-OP [facility] BRIEF OP NOTon 12-10-2024 BRIEF OP NOT [facility] Basic metabolic 2000 panelon 12-10-2024 Anion gap [Moles/Vol] 10 mmol/L Normal 8-15 [facility] Comment on above: Order Comment: Speci men Type: BLOOD SPECIMENOrdering Facility: [facility] Address: [address] [place], [place] [address] Performed By: #### 2 4321-2 ####[facility] LABORATORYCLIA [id number] [place] [id number] [place] Calcium [Mass/Vol] 8.9 mg/dL Normal 8.5-10.2 [facility] Comment on above: Order Comment: Speci men Type: BLOOD SPECIMENOrdering Facility: [facility] Address: [address] [place] [address] Performed By: #### 2 4321-2 ####[facility] LABORATORYCLIA [id number] [address] Chloride [Moles/Vol] 102 mmol/L Normal 98-107 [facility] Comment on above: Order Comment: Speci men Type: BLOOD SPECIMENOrdering Facility: [facility] Address: [address] [place] [address] Performed By: #### 2 4321-2 ####[facility] LABORATORYCLIA [id number] [address] [place] CO2 [Moles/Vol] 26 mmol/L Normal 22-30 [facility] Comment on above: Order Comment: Speci men Type: BLOOD SPECIMENOrdering Facility: [facility] Address: [address] [place] [address] Performed By: #### 2 4321-2 ####[facility] LABORATORYCLIA [id number] [address] OF [facility] Creatinine [Mass/Vol] 0.68 mg/dL Normal 0.58-0.96 [facility] Comment on above: Order Comment: Speci men Type: BLOOD SPECIMENOrdering Facility: [facility] Address: [address] [place] [address] Performed By: #### 2 4321-2 ####[facility] LABORATORYCLIA [id number] [address] Creatinine and Glomerular filtration rate.predicted panel (S/P/Bld) 84 mL/min/1.73m??? Normal >=60 [facility] Comment on above: Order Comment: Speci men Type: BLOOD SPECIMENOrdering Facility: [facility] Address: [address] [place] [address] Result Comment: Hilda mated Glomerular Filtration Rate [...] Performed By: #### 2 4321-2 ####[facility] LABORATORYCLIA [id number] [place] [address] [place] Glucose [Mass/Vol] 79 mg/dL Normal 74-99 [facility] Comment on above: Order Comment: Fan meade Type: BLOOD SPECIMENOrdering Facility: [facility] Address: [address] [place] [address] Result Comment: The [place] [employer] (ADA) provides guidance for cutoff [...] Standards of Medical Care in Diabetes 2016, [place] [employer]. Diabetes Care. 2016.39(Suppl 1). Performed By: #### 2 4321-2 ####[facility] LABORATORYCLIA [id number] [place] [address] [place] Potassium [Moles/Vol] 4.1 mmol/L Normal 3.7-5.1 [facility] Comment on above: Order Comment: Fan meade Type: BLOOD SPECIMENOrdering Facility: [facility] Address: [address] [place] [address] Performed By: #### 2 4321-2 ####[facility] LABORATORYCLIA [id number] [place] [id number] [place] Sodium [Moles/Vol] 138 mmol/L Normal 136-144 [facility] Comment on above: Order Comment: Fan meade Type: BLOOD SPECIMENOrdering Facility: [facility] Address: [address] [place] [address] Performed By: #### 2 4321-2 ####[facility] LABORATORYCLIA [id number] [address] [place] Urea nitrogen [Mass/Vol] 45 mg/dL High 7-21 [facility] Comment on above: Order Comment: Speci men Type: BLOOD SPECIMENOrdering Facility: [facility] Address: [address] [place] [address] Performed By: #### 2 4321-2 ####[facility] LABORATORYCLIA [id number] [address] [place] CASE MANAGEMon 12-10-2024 CASE MANAGEM Normal [facility] CBC W Auto Differential pane l (Bld)on 12-10-2024 Basophils (Bld) [#/Vol] 10*3/uL Normal <0.11 [facility] Comment on above: Order Comment: Speci men Type: BLOOD SPECIMENOrdering Facility: [facility] Address: [address] [place] [address] Performed By: #### 5 7021-8 ####[facility] LABORATORYCLIA [id number] [place] [address] [place] Basophils/100 WBC (Bld) 0.2 % Normal [facility] Comment on above: Order Comment: Speci men Type: BLOOD SPECIMENOrdering Facility: [facility] Address: [address] [place] [address] Performed By: #### 5 7021-8 ####[facility] LABORATORYCLIA [id number] [address] [place] Differential cell count method Nom (Bld) Auto Normal [facility] Comment on above: Order Comment: Speci men Type: BLOOD SPECIMENOrdering Facility: [facility] Address: [address] [place] [address] Performed By: #### 5 7021-8 ####[facility] LABORATORYCLIA [id number] [place] [address] [place] Eosinophils (Bld) [#/Vol] 0.07 10*3/uL Normal <0.46 [facility] Comment on above: Order Comment: Speci men Type: BLOOD SPECIMENOrdering Facility: [facility] Address: [address] [place] [address] Performed By: #### 5 7021-8 ####[facility] LABORATORYCLIA [id number] [place] [address] [place] Eosinophils/100 WBC (Bld) 0.6 % Normal [facility] Comment on above: Order Comment: Speci men Type: BLOOD SPECIMENOrdering Facility: [facility] Address: [address] [place] [address] Performed By: #### 5 7021-8 ####[facility] LABORATORYCLIA [id number] [place] [address] [place] Erythrocyte distribution width (RBC) [Ratio] 16.6 % High 11.5-15.0 [facility] Comment on above: Order Comment: Speci men Type: BLOOD SPECIMENOrdering Facility: [facility] Address: [address] [place] [address] Performed By: #### 5 7021-8 ####[facility] LABORATORYCLIA [id number] [address] [place] Hematocrit (Bld) [Volume fraction] 23.9 % Low 36.0-46.0 [facility] Comment on above: Order Comment: Speci men Type: BLOOD SPECIMENOrdering Facility: [facility] Address: [address] [place] [address] Performed By: #### 5 7021-8 ####[facility] LABORATORYCLIA [id number] [address] [place] Hemoglobin (Bld) [Mass/Vol] 7.8 g/dL Low 11.5-15.5 [facility] Comment on above: Order Comment: Speci men Type: BLOOD SPECIMENOrdering Facility: [facility] Address: [address] [place] [address] Performed By: #### 5 7021-8 ####[facility] LABORATORYCLIA [id number] [address] [place] Immature granulocytes (Bld) [#/Vol] 0.16 10*3/uL High <0.10 [facility] Comment on above: Order Comment: Speci men Type: BLOOD SPECIMENOrdering Facility: [facility] Address: [address] [place] [address] Performed By: #### 5 7021-8 ####[facility] LABORATORYCLIA [id number] [address] Immature granulocytes/100 WBC (Bld) 1.4 % Normal [facility] Comment on above: Order Comment: Speci men Type: BLOOD SPECIMENOrdering Facility: [facility] Address: [address] [place] [address] Performed By: #### 5 7021-8 ####[facility] LABORATORYCLIA [id number] [address] [place] Lymphocytes (Bld) [#/Vol] 1.18 10*3/uL Normal 1.00-4.00 [facility] Comment on above: Order Comment: Speci men Type: BLOOD SPECIMENOrdering Facility: [facility] Address: [address] [place] [address] Performed By: #### 5 7021-8 ####[facility] LABORATORYCLIA [id number] [address] Lymphocytes/100 WBC (Bld) 10.3 % Normal [facility] Comment on above: Order Comment: Speci men Type: BLOOD SPECIMENOrdering Facility: [facility] Address: [address] [place] [address] Performed By: #### 5 7021-8 ####[facility] LABORATORYCLIA [id number] [address] [place] MCH (RBC) [Entitic mass] 28.9 pg Normal 26.0-34.0 [facility] Comment on above: Order Comment: Speci men Type: BLOOD SPECIMENOrdering Facility: [facility] Address: [address] [place] [address] Performed By: #### 5 7021-8 ####[facility] LABORATORYCLIA [id number] [address] MCHC (RBC) [Mass/Vol] 32.6 g/dL Normal 30.5-36.0 [facility] Comment on above: Order Comment: Speci men Type: BLOOD SPECIMENOrdering Facility: [facility] Address: [address] [place] [address] Performed By: #### 5 7021-8 ####[facility] LABORATORYCLIA [id number] [place] [address] [place] MCV (RBC) [Entitic vol] 88.5 fL Normal 80.0-100.0 [facility] Comment on above: Order Comment: Speci men Type: BLOOD SPECIMENOrdering Facility: [facility] Address: [address] [place] [address] Performed By: #### 5 7021-8 ####[facility] LABORATORYCLIA [id number] [place] [address] [facility] [place] Monocytes (Bld) [#/Vol] 0.70 10*3/uL Normal <0.87 [facility] Comment on above: Order Comment: Speci men Type: BLOOD SPECIMENOrdering Facility: [facility] Address: [address] [place] [address] Performed By: #### 5 7021-8 ####[facility] LABORATORYCLIA [id number] [address] Monocytes/100 WBC (Bld) 6.1 % Normal [facility] Comment on above: Order Comment: Speci men Type: BLOOD SPECIMENOrdering Facility: [facility] Address: [address] [place] [address] Performed By: #### 5 7021-8 ####[facility] LABORATORYCLIA [id number] [address] [place] Neutrophils (Bld) [#/Vol] 9.32 10*3/uL High 1.45-7.50 [facility] Comment on above: Order Comment: Speci men Type: BLOOD SPECIMENOrdering Facility: [facility] Address: [address] [place] [address] Performed By: #### 5 7021-8 ####[facility] LABORATORYCLIA [id number] [address] Neutrophils/100 WBC (Bld) 81.4 % Normal [facility] Comment on above: Order Comment: Speci men Type: BLOOD SPECIMENOrdering Facility: [facility] Address: [address] [place] [address] Performed By: #### 5 7021-8 ####[facility] LABORATORYCLIA [id number] [place] [address] [place] Nucleated RBC (Bld) [#/Vol] 10*3/uL Normal <0.01 [facility] Comment on above: Order Comment: Speci men Type: BLOOD SPECIMENOrdering Facility: [facility] Address: [address] [place] [address] Performed By: #### 5 7021-8 ####[facility] LABORATORYCLIA [id number] [place] [address] [place] Nucleated RBC/100 WBC (Bld) [Ratio] 0.0 /100 WBC Normal [facility] Comment on above: Order Comment: Speci men Type: BLOOD SPECIMENOrdering Facility: [facility] Address: [address] [place] [address] Performed By: #### 5 7021-8 ####[facility] LABORATORYCLIA [id number] [place] [address] [place] Platelet mean volume (Bld) [Entitic vol] 8.1 fL Low 9.0-12.7 [facility] Comment on above: Order Comment: Speci men Type: BLOOD SPECIMENOrdering Facility: [facility] Address: [address] [place] [address] Performed By: #### 5 7021-8 ####[facility] LABORATORYCLIA [id number] [place] [address] [place] Platelets (Bld) [#/Vol] 579 10*3/uL High 150-400 [facility] Comment on above: Order Comment: Speci men Type: BLOOD SPECIMENOrdering Facility: [facility] Address: [address] [place] [address] Performed By: #### 5 7021-8 ####[facility] LABORATORYCLIA [id number] [place] [address] [place] RBC (Bld) [#/Vol] 2.70 10*6/uL Low 3.90-5.[address] [facility] Comment on above: Order Comment: Speci men Type: BLOOD SPECIMENOrdering Facility: [facility] Address: [address] [place] [address] Performed By: #### 5 7021-8 ####[facility]ORATORYCLIA [id number] [place] [address] [place] WBC (Bld) [#/Vol] 11.45 10*3/uL High 3.70-11.00 [facility] Comment on above: Order Comment: Speci men Type: BLOOD SPECIMENOrdering Facility: [facility] Address: [address] [place] [address] Performed By: #### 5 7021-8 ####[facility]ORATORYCLIA [id number] [address] CONSULT PROGon 12-10-2024 CONSULT PROG [facility] CONSULT PROG [facility] CONSULT PROG [facility] CONSULT PROG [facility] OPERATIVE NOon 12-10-2024 OPERATIVE NO [facility] SURGICAL PATHOLOGYon 025 CASE REPORT [facility] Comment on above: Order Comment: Speci men Type: TISSUE SPECIMENOrdering Facility: [facility] Address: [address] [place] [address] Result Comment: Surg ical Pathology Report Case: [id number] Provider: José Miguel Morgan MD Collected: 12/10/2024 07:37 AMOrdering Location: [facility] Endoscopy Received: 12/10/2024 08:27 AMPathologist: Jesús Jeff MDSpecimens: A) - Small Bowel, Duodenum, Biopsy, sprue B) - Stomach, Biopsy, hp C) - Esophagus, Biopsy, at 30 cm r/o krystina Performed By: #### S ####[facility] LABCLIA [id number] [address] [place] [facility] LABCLIA [id number] [address] FINAL DIAGNOSIS Normal [facility] Comment on above: Order Comment: Speci men Type: TISSUE SPECIMENOrdering Facility: [facility] Address: [address] [place] [address] Result Comment: A. D uodenum, biopsy:- Focal gastric surface metaplasia associated with mild regenerative epithelial changes.- No other significant pathologic alteration.B. Stomach, biopsy:- Reactive gastropathy.- No morphologic evidence of Helicobacter pylori.C. Esophagus at 30 cm, biopsy:- Fragments of of unremarkable squamous mucosa.- No evidence of Krystina.JRG/mm/12/11/2024 Performed By: #### S ####[facility] LABCLIA [id number] [address] LABCLIA [id number] [address] OF [facility] FINAL PERFORMING LAB [facility] Comment on above: Order Comment: Speci men Type: TISSUE SPECIMENOrdering Facility: [facility] Address: [address] [place] [address] Result Comment: Diag nostic interpretation performed at: [facility], [address] [place] [address] CLIA# [id number] Director: Manfred Diallo MD Performed By: #### S ####[facility] LABCLIA [id number] [address] LABCLIA [id number] [address] GROSS DESCRIPTION Normal [facility] Comment on above: Order Comment: Speci men Type: TISSUE SPECIMENOrdering Facility: [facility] Address: [address] [place] [address] Result Comment: A. S mall Bowel, Duodenum, [...] submitted in one cassette.Gross examination performed at , [address] [place], [place] [address] December 10, 2024 10:50 AM Performed By: #### S ####[facility] LABCLIA [id number] [place] [address] [facility] LABCLIA [id number] [address] [address] [facility] THERAPY NTon 12-10-2024 THERAPY NT [facility] THERAPY NT Normal [facility] Basic metabolic 2000 panelon 12-09-2024 Anion gap [Moles/Vol] 10 mmol/L Normal 8-15 [facility] Comment on above: Order Comment: Speci men Type: BLOOD SPECIMENOrdering Facility: [facility] Address: [address] [place] [address] Performed By: #### 2 4321-2, 87613-9, 2276-02 ####[facility]ORATORYCLIA [id number] [place] [address] [place] Calcium [Mass/Vol] 9.3 mg/dL Normal 8.5-10.2 [facility] Comment on above: Order Comment: Speci men Type: BLOOD SPECIMENOrdering Facility: [facility] Address: [address] [place] [address] Performed By: #### 2 4321-2, 71460-0, 2275-4 ####[facility]ORATORYCLIA [id number] [place] [address] [place] Chloride [Moles/Vol] 100 mmol/L Normal 98-107 [facility] Comment on above: Order Comment: Speci men Type: BLOOD SPECIMENOrdering Facility: [facility] Address: [facility] [place] [address] Performed By: #### 2 4321-2, 88319-5, 2275-4 ####[facility]ORATORYCLIA [id number] [place] [address] [place] CO2 [Moles/Vol] 26 mmol/L Normal 22-30 [facility] Comment on above: Order Comment: Fan meade Type: BLOOD SPECIMENOrdering Facility: [facility] Address: [address] [place] [address] Performed By: #### 2 4321-2, 12073-0, 4 ####[facility]ORATORYCLIA [id number] [place] [address] [place] Creatinine [Mass/Vol] 0.80 mg/dL Normal 0.58-0.96 [facility] Comment on above: Order Comment: Fan men Type: BLOOD SPECIMENOrdering Facility: [facility] Address: [address] [place] [address] Performed By: #### 2 4321-2, 55623-5, 2276-02 ####[facility] LABORATORYCLIA [id number] [address] Creatinine and Glomerular filtration rate.predicted panel (S/P/Bld) 71 mL/min/1.73m??? Normal >=60 [facility] Comment on above: Order Comment: Fan meade Type: BLOOD SPECIMENOrdering Facility: [facility] Address: [address] [place] [address] Result Comment: Hilda mated Glomerular Filtration Rate [...] actual GFR. Performed By: #### 2 4321-2, 53257-2, 2276-02 ####[facility] LABORATORYCLIA [id number] [place] [id number] [place] Glucose [Mass/Vol] 151 mg/dL High 74-99 [facility] Comment on above: Order Comment: Fan halina Type: BLOOD SPECIMENOrdering Facility: [facility] Address: [address] [place] [address] Result Comment: The [place] [employer] (ADA) provides guidance for cutoff [...] Standards of Medical Care in Diabetes 2016, [place] [employer]. Diabetes Care. 2016.39(Suppl 1). Performed By: #### 2 4321-2, 96807-1, 6-4 ####[facility] LABORATORYCLIA [id number] [place] [address] [place] Potassium [Moles/Vol] 4.5 mmol/L Normal 3.7-5.1 [facility] Comment on above: Order Comment: Fan meade Type: BLOOD SPECIMENOrdering Facility: [facility] Address: [address] [place] [address] Performed By: #### 2 4321-2, 05557-1, 4 ####[facility] LABORATORYCLIA [id number] [place] [address] [place] Sodium [Moles/Vol] 136 mmol/L Normal 136-144 [facility] Comment on above: Order Comment: Fan meade Type: BLOOD SPECIMENOrdering Facility: [facility] Address: [address] [place] [address] Performed By: #### 2 4321-2, 25134-9, 2275-4 ####[facility] LABORATORYCLIA [id number] [place] [address] [place] Urea nitrogen [Mass/Vol] 43 mg/dL High 7-21 [facility] Comment on above: Order Comment: Fan meade Type: BLOOD SPECIMENOrdering Facility: [facility] Address: [address] [place] [address] Performed By: #### 2 4321-2, 17373-6, 2275-4 ####[facility] LABORATORYCLIA [id number] [address] [place] CBC W Auto Differential pane l (Bld)on 12-09-2024 Basophils (Bld) [#/Vol] 10*3/uL Normal <0.11 [facility] Comment on above: Order Comment: Speci men Type: BLOOD SPECIMENOrdering Facility: [facility] Address: [address] [place] [address] Performed By: #### 5 7021-8 ####[facility] LABORATORYCLIA [id number] [address] Basophils/100 WBC (Bld) 0.1 % Normal [facility] Comment on above: Order Comment: Speci men Type: BLOOD SPECIMENOrdering Facility: [facility] Address: [address] [place] [address] Performed By: #### 5 7021-8 ####[facility] LABORATORYCLIA [id number] [address] Differential cell count method Nom (Bld) Auto Normal [facility] Comment on above: Order Comment: Speci men Type: BLOOD SPECIMENOrdering Facility: [facility] [facility] Address: [address] [place] [address] Performed By: #### 5 7021-8 ####[facility] LABORATORYCLIA [id number] [address] [place] Eosinophils (Bld) [#/Vol] 0.15 10*3/uL Normal <0.46 [facility] Comment on above: Order Comment: Speci men Type: BLOOD SPECIMENOrdering Facility: [facility] Address: [address] [place] [address] Performed By: #### 5 7021-8 ####[facility] LABORATORYCLIA [id number] [address] Eosinophils/100 WBC (Bld) 1.4 % Normal [facility] Comment on above: Order Comment: Speci men Type: BLOOD SPECIMENOrdering Facility: [facility] Address: [address] [place] [address] Performed By: #### 5 7021-8 ####[facility] LABORATORYCLIA [id number] [place] [address] [place] Erythrocyte distribution width (RBC) [Ratio] 16.4 % High 11.5-15.0 [facility] Comment on above: Order Comment: Speci men Type: BLOOD SPECIMENOrdering Facility: [facility] Address: [address] [place] [address] Performed By: #### 5 7021-8 ####[facility] LABORATORYCLIA [id number] [place] [address] [place] Hematocrit (Bld) [Volume fraction] 24.0 % Low 36.0-46.0 [facility] Comment on above: Order Comment: Speci men Type: BLOOD SPECIMENOrdering Facility: [facility] Address: [address] [place] [address] Performed By: #### 5 7021-8 ####[facility] LABORATORYCLIA [id number] [place] [address] [place] Hemoglobin (Bld) [Mass/Vol] 7.6 g/dL Low 11.5-15.5 [facility] Comment on above: Order Comment: Speci men Type: BLOOD SPECIMENOrdering Facility: [facility] Address: [address] [place] [address] Performed By: #### 5 7021-8 ####[facility] LABORATORYCLIA [id number] [place] [address] [place] Immature granulocytes (Bld) [#/Vol] 0.23 10*3/uL High <0.10 [facility] Comment on above: Order Comment: Speci men Type: BLOOD SPECIMENOrdering Facility: [facility] Address: [address] [place] [address] Performed By: #### 5 7021-8 ####[facility] LABORATORYCLIA [id number] [place] [address] [place] Immature granulocytes/100 WBC (Bld) 2.1 % Normal [facility] Comment on above: Order Comment: Speci men Type: BLOOD SPECIMENOrdering Facility: [facility] Address: [address] [place] [address] Performed By: #### 5 7021-8 ####[facility] LABORATORYCLIA [id number] [address] Lymphocytes (Bld) [#/Vol] 1.43 10*3/uL Normal 1.00-4.00 [facility] Comment on above: Order Comment: Speci men Type: BLOOD SPECIMENOrdering Facility: [facility] Address: [address] [place] [address] Performed By: #### 5 7021-8 ####[facility] LABORATORYCLIA [id number] [address] Lymphocytes/100 WBC (Bld) 13.3 % Normal [facility] Comment on above: Order Comment: Speci men Type: BLOOD SPECIMENOrdering Facility: [facility] Address: [address] [place] [address] Performed By: #### 5 7021-8 ####[facility] LABORATORYCLIA [id number] [address] [place] [facility] MCH (RBC) [Entitic mass] 27.9 pg Normal 26.0-34.0 [facility] Comment on above: Order Comment: Speci men Type: BLOOD SPECIMENOrdering Facility: [facility] Address: [address] [place] [address] Performed By: #### 5 7021-8 ####[facility] LABORATORYCLIA [id number] [address] MCHC (RBC) [Mass/Vol] 31.7 g/dL Normal 30.5-36.0 [facility] Comment on above: Order Comment: Speci men Type: BLOOD SPECIMENOrdering Facility: [facility] Address: [address] [place] [address] Performed By: #### 5 7021-8 ####[facility] LABORATORYCLIA [id number] [address] MCV (RBC) [Entitic vol] 88.2 fL Normal 80.0-100.0 [facility] Comment on above: Order Comment: Speci men Type: BLOOD SPECIMENOrdering Facility: [facility] Address: [address] [place] [address] Performed By: #### 5 7021-8 ####[facility] LABORATORYCLIA [id number] [place] [address] [place] Monocytes (Bld) [#/Vol] 0.62 10*3/uL Normal <0.87 [facility] Comment on above: Order Comment: Speci men Type: BLOOD SPECIMENOrdering Facility: [facility] Address: [address] [place] [address] Performed By: #### 5 7021-8 ####[facility] LABORATORYCLIA [id number] [place] [address] [place] Monocytes/100 WBC (Bld) 5.8 % Normal [facility] Comment on above: Order Comment: Speci men Type: BLOOD SPECIMENOrdering Facility: [facility] Address: [address] [place] [address] Performed By: #### 5 7021-8 ####[facility] LABORATORYCLIA [id number] [place] [address] [place] Neutrophils (Bld) [#/Vol] 8.31 10*3/uL High 1.45-7.50 [facility] Comment on above: Order Comment: Speci men Type: BLOOD SPECIMENOrdering Facility: [facility] Address: [address] [place] [address] Performed By: #### 5 7021-8 ####[facility] LABORATORYCLIA [id number] [address] [place] Neutrophils/100 WBC (Bld) 77.3 % Normal [facility] Comment on above: Order Comment: Speci men Type: BLOOD SPECIMENOrdering Facility: [facility] Address: [address] [place] [address] Performed By: #### 5 7021-8 ####[facility] LABORATORYCLIA [id number] [place] [address] [place] Nucleated RBC (Bld) [#/Vol] 10*3/uL Normal <0.01 [facility] Comment on above: Order Comment: Speci men Type: BLOOD SPECIMENOrdering Facility: [facility] Address: [address] [place] [address] Performed By: #### 5 7021-8 ####[facility] LABORATORYCLIA [id number] [place] [address] [place] Nucleated RBC/100 WBC (Bld) [Ratio] 0.0 /100 WBC Normal [facility] Comment on above: Order Comment: Speci men Type: BLOOD SPECIMENOrdering Facility: [facility] Address: [address] [place] [address] Performed By: #### 5 7021-8 ####[facility] LABORATORYCLIA [id number] [place] [address] [place] Platelet mean volume (Bld) [Entitic vol] 8.3 fL Low 9.0-12.7 [facility] Comment on above: Order Comment: Speci men Type: BLOOD SPECIMENOrdering Facility: [facility] Address: [address] [place] [address] Performed By: #### 5 7021-8 ####[facility] LABORATORYCLIA [id number] [address] [place] Platelets (Bld) [#/Vol] 577 10*3/uL High 150-400 [facility] Comment on above: Order Comment: Speci men Type: BLOOD SPECIMENOrdering Facility: [facility] Address: [address] [place] [address] Performed By: #### 5 7021-8 ####[facility] LABORATORYCLIA [id number] [place] [address] [place] RBC (Bld) [#/Vol] 2.72 10*6/uL Low 3.90-5.[address] [facility] Comment on above: Order Comment: Speci men Type: BLOOD SPECIMENOrdering Facility: [facility] Address: [address] [place] [address] Performed By: #### 5 7021-8 ####[facility] LABORATORYCLIA [id number] [address] [place] WBC (Bld) [#/Vol] 10.75 10*3/uL Normal 3.70-11.00 [facility] Comment on above: Order Comment: Speci men Type: BLOOD SPECIMENOrdering Facility: [facility] Address: [address] [place] [address] Performed By: #### 5 7021-8 ####[facility]ORATORYCLIA [id number] [place] [address] [place] CELIAC SCREENon 12-09-2024 GLIAD DEAMIDATED IGA QUAL Negative Normal Negative, Test not Indicated [facility] Comment on above: Order Comment: Speci men Type: BLOOD SPECIMENOrdering Facility: [facility] Address: [address] [place] [address] Result Comment: This is used as an aid in diagnosis of celiac disease. Clinical correlation is required.The following results were obtained with an [employer] Gliadin IgA JOE Gliadin. Gliadin IgA values obtained with different manufacturers' assay methods may not be used interchangeably. The magnitude of the reported IgA levels cannot be correlated to an endpoint titer. Performed By: #### L [id number] ####[facility] LABCLIA [id number] [place] [address] [place] Gliadin peptide IgA Qn (S) 2 Units Normal <20 [facility] Comment on above: Order Comment: Speci men Type: BLOOD SPECIMENOrdering Facility: [facility] Address: [address] [place] [address] Performed By: #### L [id number] ####[facility] LABCLIA [id number] [place] [address] [place] INTERPRETATION No serological evidence of celiac disease, however, if celiac disease is clinically suspected and patient is not on gluten-free diet, histological diagnosis may be considered. HLA testing may help with risk assessment. Normal [facility] Comment on above: Order Comment: Speci men Type: BLOOD SPECIMENOrdering Facility: [facility] Address: [address] [place] [address] Performed By: #### L [id number] ####[facility] LABCLIA [id number] [place] [address] [place] TRANSGLUTAMINASE IGA ABS INTERPRETATION Negative Normal Negative [facility] Comment on above: Order Comment: Speci men Type: BLOOD SPECIMENOrdering Facility: [facility] Address: [address] [place] [address] Result Comment: The following results were obtained with [employer] R h-tTG IgA JOE.???R h-tTG IgA values obtained with different manufacturers' assay methods may not be used interchangeably. The magnitude of the reported IgA levels cannot be corelated to an endpoint???concentration.This is used as an aid in diagnosis of celiac disease. Clinical correlation is required. Performed By: #### L [id number] ####[facility] LABCLIA [id number] [place] [address] [place] tTG IgA Qn (S) <2 Normal <4 [facility] Comment on above: Order Comment: Katei [facility] Type: BLOOD SPECIMENOrdering Facility: [facility] Address: [address] [place] [address] Performed By: #### L [id number] ####[facility] LABCLIA [id number] [place] [address] [place] CONSULT PROGon 12-09-2024 CONSULT PROG Normal [facility] CONSULT PROG Normal [facility] CONSULT PROG Normal [facility] Ferritin SerPl-mCncon 2024 Ferritin [Mass/Vol] 1588.0 ng/mL High 14.7-205.1 [facility] Comment on above: Order Comment: Speci [facility] Type: BLOOD SPECIMENOrdering Facility: [facility] Address: [address] [place] [address] Performed By: #### 2 4321-2, 98625-9, 2276-4 ####[facility] LABORATORYCLIA [id number] [place] [address] [place] Haptoglob SerPl-mCncon 12-09 Haptoglobin [Mass/Vol] 483 mg/dL High 31-238 [facility] Comment on above: Order Comment: Katei [facility] Type: BLOOD SPECIMENOrdering Facility: [facility] Address: [address] [place] [address] Performed By: #### 4 542-7 ####[facility] LABCLIA [id number] [place] [id number] [place] IgA SerPl-mCncon 12-09-2024 IgA [Mass/Vol] 166 mg/dL Normal 70-400 [facility] Comment on above: Order Comment: Speci men Type: BLOOD SPECIMENOrdering Facility: [facility] Address: [address] [place] [address] Performed By: #### 2 458-8 ####[facility] LABCLIA [id number] [place] [id number] [place] Iron and Iron binding capaci ty panelon 12-09-2024 Iron [Mass/Vol] 91 ug/dL Normal 41-186 [facility] Comment on above: Order Comment: Speci men Type: BLOOD SPECIMENOrdering Facility: [facility] Address: [address] [place] [address] Performed By: #### 2 4321-2, 69848-3, 2276-02 ####[facility] LABORATORYCLIA [id number] [address] Iron binding capacity [Mass/Vol] 223 ug/dL Low 232-386 [facility] Comment on above: Order Comment: Speci men Type: BLOOD SPECIMENOrdering Facility: [facility] Address: [address] [place] [address] Performed By: #### 2 4321-2, 31350-9, 2275-4 ####[facility]ORATORYCLIA [id number] [address] STATES OF [facility] Iron/TIBC [Molar ratio] 40.8 % Normal 15.0-57.0 [facility] Comment on above: Order Comment: Speci men Type: BLOOD SPECIMENOrdering Facility: [facility] Address: [address] [place] [address] Performed By: #### 2 4321-2, 81471-9, 2275-4 ####[facility] LABORATORYCLIA [id number] [place] [address] [place] CBC W Auto Differential pane l (Bld)on 12-08-2024 Basophils (Bld) [#/Vol] 0.03 10*3/uL Normal <0.11 [facility] Comment on above: Order Comment: Speci men Type: BLOOD SPECIMENOrdering Facility: [facility] Address: [address] [place] [address] Performed By: #### 5 7021-8 ####[facility] LABORATORYCLIA [id number] [place] [address] [place] Basophils/100 WBC (Bld) 0.3 % Normal [facility] Comment on above: Order Comment: Speci men Type: BLOOD SPECIMENOrdering Facility: [facility] Address: [address] [place] [address] Performed By: #### 5 7021-8 ####[facility] LABORATORYCLIA [id number] [address] [place] Differential cell count method Nom (Bld) Auto Normal [facility] Comment on above: Order Comment: Speci men Type: BLOOD SPECIMENOrdering Facility: [facility] Address: [address] [place] [address] Performed By: #### 5 7021-8 ####[facility] LABORATORYCLIA [id number] [place] [address] [place] Eosinophils (Bld) [#/Vol] 0.13 10*3/uL Normal <0.46 [facility] Comment on above: Order Comment: Speci men Type: BLOOD SPECIMENOrdering Facility: [facility] Address: [address] [place] [address] Performed By: #### 5 7021-8 ####[facility] LABORATORYCLIA [id number] [address] Eosinophils/100 WBC (Bld) 1.1 % Normal [facility] Comment on above: Order Comment: Speci men Type: BLOOD SPECIMENOrdering Facility: [facility] Address: [address] [place] [address] Performed By: #### 5 7021-8 ####[facility] LABORATORYCLIA [id number] [place] [address] [place] Erythrocyte distribution width (RBC) [Ratio] 16.0 % High 11.5-15.0 [facility] Comment on above: Order Comment: Speci men Type: BLOOD SPECIMENOrdering Facility: [facility] Address: [address] [place] [address] Performed By: #### 5 7021-8 ####[facility] LABORATORYCLIA [id number] [place] [address] [place] Hematocrit (Bld) [Volume fraction] 24.0 % Low 36.0-46.0 [facility] Comment on above: Order Comment: Speci men Type: BLOOD SPECIMENOrdering Facility: [facility] Address: [address] [place] [address] Performed By: #### 5 7021-8 ####[facility] LABORATORYCLIA [id number] [place] [address] [place] Hemoglobin (Bld) [Mass/Vol] 7.7 g/dL Low 11.5-15.5 [facility] Comment on above: Order Comment: Speci men Type: BLOOD SPECIMENOrdering Facility: [facility] Address: [address] [place] [address] Performed By: #### 5 7021-8 ####[facility] LABORATORYCLIA [id number] [place] [address] [place] Immature granulocytes (Bld) [#/Vol] 0.19 10*3/uL High <0.10 [facility] Comment on above: Order Comment: Speci men Type: BLOOD SPECIMENOrdering Facility: [facility] Address: [address] [place] [address] Performed By: #### 5 7021-8 ####[facility] LABORATORYCLIA [id number] [address] [place] Immature granulocytes/100 WBC (Bld) 1.6 % Normal [facility] Comment on above: Order Comment: Speci men Type: BLOOD SPECIMENOrdering Facility: [facility] Address: [address] [place] [address] Performed By: #### 5 7021-8 ####[facility] LABORATORYCLIA [id number] [place] [address] [place] Lymphocytes (Bld) [#/Vol] 1.38 10*3/uL Normal 1.00-4.00 [facility] Comment on above: Order Comment: Speci men Type: BLOOD SPECIMENOrdering Facility: [facility] Address: [address] [place] [address] Performed By: #### 5 7021-8 ####[facility] LABORATORYCLIA [id number] [address] Lymphocytes/100 WBC (Bld) 11.9 % Normal [facility] Comment on above: Order Comment: Speci men Type: BLOOD SPECIMENOrdering Facility: [facility] Address: [address] [place] [address] Performed By: #### 5 7021-8 ####[facility] LABORATORYCLIA [id number] [address] [place] MCH (RBC) [Entitic mass] 28.2 pg Normal 26.0-34.0 [facility] Comment on above: Order Comment: Speci men Type: BLOOD SPECIMENOrdering Facility: [facility] Address: [address] [place] [address] Performed By: #### 5 7021-8 ####[facility] LABORATORYCLIA [id number] [address] [place] MCHC (RBC) [Mass/Vol] 32.1 g/dL Normal 30.5-36.0 [facility] Comment on above: Order Comment: Speci men Type: BLOOD SPECIMENOrdering Facility: [facility] Address: [address] [place] [address] Performed By: #### 5 7021-8 ####[facility] LABORATORYCLIA [id number] [address] [place] MCV (RBC) [Entitic vol] 87.9 fL Normal 80.0-100.0 [facility] Comment on above: Order Comment: Speci men Type: BLOOD SPECIMENOrdering Facility: [facility] Address: [address] [place] [address] Performed By: #### 5 7021-8 ####[facility] LABORATORYCLIA [id number] [place] [address] [place] Monocytes (Bld) [#/Vol] 0.77 10*3/uL Normal <0.87 [facility] Comment on above: Order Comment: Speci men Type: BLOOD SPECIMENOrdering Facility: [facility] Address: [address] [place] [address] Performed By: #### 5 7021-8 ####[facility] LABORATORYCLIA [id number] [place] [address] [place] Monocytes/100 WBC (Bld) 6.6 % Normal [facility] Comment on above: Order Comment: Speci men Type: BLOOD SPECIMENOrdering Facility: [facility] Address: [address] [place] [address] Performed By: #### 5 7021-8 ####[facility] LABORATORYCLIA [id number] [place] [address] [place] Neutrophils (Bld) [#/Vol] 9.10 10*3/uL High 1.45-7.50 [facility] Comment on above: Order Comment: Speci men Type: BLOOD SPECIMENOrdering Facility: [facility] Address: [address] [place] [address] Performed By: #### 5 7021-8 ####[facility] LABORATORYCLIA [id number] [address] [place] Neutrophils/100 WBC (Bld) 78.5 % Normal [facility] Comment on above: Order Comment: Speci men Type: BLOOD SPECIMENOrdering Facility: [facility] Address: [address] [place] [address] Performed By: #### 5 7021-8 ####[facility] LABORATORYCLIA [id number] [place] [id number] [place] Nucleated RBC (Bld) [#/Vol] 10*3/uL Normal <0.01 [facility] Comment on above: Order Comment: Speci men Type: BLOOD SPECIMENOrdering Facility: [facility] Address: [address] [place] [address] Performed By: #### 5 7021-8 ####[facility]ORATORYCLIA [id number] [place] [address] [place] Nucleated RBC/100 WBC (Bld) [Ratio] 0.0 /100 WBC Normal [facility] Comment on above: Order Comment: Speci men Type: BLOOD SPECIMENOrdering Facility: [facility] Address: [address] [place] [address] Performed By: #### 5 7021-8 ####[facility] LABORATORYCLIA [id number] [place] [address] [place] Platelet mean volume (Bld) [Entitic vol] 8.4 fL Low 9.0-12.7 [facility] Comment on above: Order Comment: Speci men Type: BLOOD SPECIMENOrdering Facility: [facility] Address: [address] [place] [address] Performed By: #### 5 7021-8 ####[facility]ATORYCLIA [id number] [place] [address] [place] Platelets (Bld) [#/Vol] 577 10*3/uL High 150-400 [facility] Comment on above: Order Comment: Speci men Type: BLOOD SPECIMENOrdering Facility: [facility] Address: [address] [place] [address] Performed By: #### 5 7021-8 ####[facility]ORATORYCLIA [id number] [place] [address] [place] RBC (Bld) [#/Vol] 2.73 10*6/uL Low 3.90-5.[address] [facility] Comment on above: Order Comment: Speci men Type: BLOOD SPECIMENOrdering Facility: [facility] Address: [address] [place] [address] Performed By: #### 5 7021-8 ####[facility]ORATORYCLIA [id number] [place] [id number] [place] WBC (Bld) [#/Vol] 11.60 10*3/uL High 3.70-11.00 [facility] Comment on above: Order Comment: Speci men Type: BLOOD SPECIMENOrdering Facility: [facility] Address: [address] [place] [address] Performed By: #### 5 7021-8 ####[facility] LABORATORYCLIA [id number] [place] [address] [place] CONSULT PROGon 12-08-2024 CONSULT PROG Normal [facility] CONSULT PROG Normal [facility] CONSULT PROG Normal [facility] Comprehensive metabolic 2000 panelon 12-08-2024 Albumin [Mass/Vol] 2.6 g/dL Low 3.9-4.9 [facility] Comment on above: Order Comment: Speci men Type: BLOOD SPECIMENOrdering Facility: [facility] Address: [address] [place] [id number] Performed By: #### 2 4323-8, ####[facility]ORATORYCLIA [id number] [place] [address] [place] ALP [Catalytic activity/Vol] 106 U/L Normal 34-123 [facility] Comment on above: Order Comment: Speci men Type: BLOOD SPECIMENOrdering Facility: [facility] Address: [address] [place] [address] Performed By: #### 2 4323-8, ####[facility]ORATORYCLIA [id number] [place] [address] [place] ALT [Catalytic activity/Vol] U/L Low 7-38 [facility] Comment on above: Order Comment: Speci men Type: BLOOD SPECIMENOrdering Facility: [facility] Address: [address] [place] [address] Performed By: #### 2 4323-8, ####[facility]ORATORYCLIA [id number] [place] [id number] [place] Anion gap [Moles/Vol] 8 mmol/L Normal 8-15 [facility] Comment on above: Order Comment: Speci men Type: BLOOD SPECIMENOrdering Facility: [facility] Address: [address] [place] [id number] Performed By: #### 2 4323-8, ####[facility]ORATORYCLIA [id number] [place] [id number] [place] AST [Catalytic activity/Vol] 20 U/L Normal 13-35 [facility] Comment on above: Order Comment: Speci men Type: BLOOD SPECIMENOrdering Facility: [facility] Address: [address] [place] [address] Performed By: #### 2 432-8, ####[facility]ORATORYCLIA [id number] [place] [address] [place] Bilirubin [Mass/Vol] mg/dL Low 0.2-1.3 [facility] Comment on above: Order Comment: Speci men Type: BLOOD SPECIMENOrdering Facility: [facility] Address: [address] [place] [address] Performed By: #### 2 8, ####[facility] LABORATORYCLIA [id number] [place] [address] [place] Calcium [Mass/Vol] 9.0 mg/dL Normal 8.5-10.2 [facility] Comment on above: Order Comment: Speci men Type: BLOOD SPECIMENOrdering Facility: [facility] Address: [address] [place] [address] Performed By: #### 2 4323-06, ####[facility] LABORATORYCLIA [id number] [place] [address] [place] Chloride [Moles/Vol] 99 mmol/L Normal 98-107 [facility] Comment on above: Order Comment: Speci men Type: BLOOD SPECIMENOrdering Facility: [facility] Address: [address] [place] [address] Performed By: #### 2 4323-06, ####[facility] LABORATORYCLIA [id number] [place] [id number] [place] CO2 [Moles/Vol] 27 mmol/L Normal 22-30 [facility] Comment on above: Order Comment: Speci men Type: BLOOD SPECIMENOrdering Facility: [facility] Address: [address] [place] [address] Performed By: #### 2 432-8, ####[facility] LABORATORYCLIA [id number] [place] [address] [place] Creatinine [Mass/Vol] 0.86 mg/dL Normal 0.58-0.96 [facility] Comment on above: Order Comment: Fan meade Type: BLOOD SPECIMENOrdering Facility: [facility] Address: [address] [place] [address] Performed By: #### 2 4323-8, ####[facility] LABORATORYCLIA [id number] [place] [address] [facility] Creatinine and Glomerular filtration rate.predicted panel (S/P/Bld) 65 mL/min/1.73m??? Normal >=60 [facility] Comment on above: Order Comment: Fan meade Type: BLOOD SPECIMENOrdering Facility: [facility] Address: [address] [place] [address] Result Comment: Hilda mated Glomerular Filtration Rate [...] Performed By: #### 2 4323-8, ####V[facility] LABORATORYCLIA [id number] [place] [id number] [place] Glucose [Mass/Vol] 170 mg/dL High 74-99 [facility] Comment on above: Order Comment: Fan meade Type: BLOOD SPECIMENOrdering Facility: [facility] Address: [address] [place], [place] [address] Result Comment: The [place] Diabetes [employer] (ADA) provides guidance for cutoff [...] Standards of Medical Care in Diabetes 2016, [place] [employer]. Diabetes Care. 2016.39(Suppl 1). Performed By: #### 2 4323-8, ####[facility] LABORATORYCLIA [id number] [place] [address] [place] Potassium [Moles/Vol] 4.5 mmol/L Normal 3.7-5.1 [facility] Comment on above: Order Comment: Speci men Type: BLOOD SPECIMENOrdering Facility: [facility] Address: [address] [place] [address] Performed By: #### 2 4328, ####[facility] LABORATORYCLIA [id number] [place] [address] [place] Protein [Mass/Vol] 5.3 g/dL Low 6.3-8.0 [facility] Comment on above: Order Comment: Speci men Type: BLOOD SPECIMENOrdering Facility: [facility] Address: [address] [place] [address] Performed By: #### 2 4323-06, ####[facility] LABORATORYCLIA [id number] [place] [address] [place] Sodium [Moles/Vol] 134 mmol/L Low 136-144 [facility] Comment on above: Order Comment: Katei men Type: BLOOD SPECIMENOrdering Facility: [facility] Address: [address] [place] [address] Performed By: #### 2 4323-06, ####[facility] LABORATORYCLIA [id number] [place] [id number] [place] Urea nitrogen [Mass/Vol] 45 mg/dL High 7-21 [facility] Comment on above: Order Comment: Speci men Type: BLOOD SPECIMENOrdering Facility: [facility] Address: [facility] [place] [address] Performed By: #### 2 43201-19, ####[facility] LABORATORYCLIA [id number] [place] [address] [place] Magnesium SerPl-mCncon 12-08 Magnesium [Mass/Vol] 1.7 mg/dL Normal 1.7-2.3 [facility] Comment on above: Order Comment: Speci men Type: BLOOD SPECIMENOrdering Facility: [facility] Address: [address] [place] [address] Performed By: #### 2 4323-8, 64784-4 ####[facility]ILL[facility] LABORATORYCLIA [id number] [address] OCCULT BLD EXAM-DIAGon 12-08 OCCULT BLD EXAM-DIAG Negative Normal [facility] Comment on above: Performed By: #### O BDX ####[facility]ORATORYCLIA [id number] [address] [place] ALLIED HEALTHon 12-07-2024 ALLIED HEALTH [facility] HEALTH [facility] CASE MANAGEMon 12-07-2024 CASE MANAGEM [facility] CBC W Auto Differential pane l (Bld)on 12-07-2024 Basophils (Bld) [#/Vol] 10*3/uL Normal <0.11 [facility] Comment on above: Order Comment: Speci men Type: BLOOD SPECIMENOrdering Facility: [facility] Address: [address] [place] [address] Performed By: #### 5 7021-8 ####[facility] LABORATORYCLIA [id number] [address] Basophils/100 WBC (Bld) 0.2 % Normal [facility] Comment on above: Order Comment: Speci men Type: BLOOD SPECIMENOrdering Facility: [facility] Address: [address] [place] [address] Performed By: #### 5 7021-8 ####[facility] LABORATORYCLIA [id number] [address] STATES OF [facility] Differential cell count method Nom (Bld) Auto [facility] Comment on above: Order Comment: Speci men Type: BLOOD SPECIMENOrdering Facility: [facility] Address: [address] [place] [address] Performed By: #### 5 7021-8 ####[facility] LABORATORYCLIA [id number] [address] [place] Eosinophils (Bld) [#/Vol] 0.09 10*3/uL Normal <0.46 [facility] Comment on above: Order Comment: Speci men Type: BLOOD SPECIMENOrdering Facility: [facility] Address: [address] [place] [address] Performed By: #### 5 7021-8 ####[facility] LABORATORYCLIA [id number] [address] [place] Eosinophils/100 WBC (Bld) 0.8 % Normal [facility] Comment on above: Order Comment: Speci men Type: BLOOD SPECIMENOrdering Facility: [facility] Address: [address] [place] [address] Performed By: #### 5 7021-8 ####[facility] LABORATORYCLIA [id number] [address] [place] Erythrocyte distribution width (RBC) [Ratio] 16.0 % High 11.5-15.0 [facility] Comment on above: Order Comment: Speci men Type: BLOOD SPECIMENOrdering Facility: [facility] Address: [address] [place] [address] Performed By: #### 5 7021-8 ####[facility] LABORATORYCLIA [id number] [address] Hematocrit (Bld) [Volume fraction] 25.2 % Low 36.0-46.0 [facility] Comment on above: Order Comment: Speci men Type: BLOOD SPECIMENOrdering Facility: [facility] Address: [address] [place] [address] Performed By: #### 5 7021-8 ####[facility] LABORATORYCLIA [id number] [address] [place] Hemoglobin (Bld) [Mass/Vol] 8.2 g/dL Low 11.5-15.5 [facility] Comment on above: Order Comment: Speci men Type: BLOOD SPECIMENOrdering Facility: [facility] Address: [address] [place] [address] Performed By: #### 5 7021-8 ####[facility] LABORATORYCLIA [id number] [address] [place] Immature granulocytes (Bld) [#/Vol] 0.18 10*3/uL High <0.10 [facility] Comment on above: Order Comment: Speci men Type: BLOOD SPECIMENOrdering Facility: [facility] Address: [address] [place] [address] Performed By: #### 5 7021-8 ####[facility] LABORATORYCLIA [id number] [address] [place] Immature granulocytes/100 WBC (Bld) 1.6 % Normal [facility] Comment on above: Order Comment: Speci men Type: BLOOD SPECIMENOrdering Facility: [facility] Address: [address] [place] [address] Performed By: #### 5 7021-8 ####[facility] LABORATORYCLIA [id number] [address] [place] Lymphocytes (Bld) [#/Vol] 0.83 10*3/uL Low 1.00-4.00 [facility] Comment on above: Order Comment: Speci men Type: BLOOD SPECIMENOrdering Facility: [facility] Address: [address] [place] [address] Performed By: #### 5 7021-8 ####[facility] LABORATORYCLIA [id number] [address] Lymphocytes/100 WBC (Bld) 7.6 % Normal [facility] Comment on above: Order Comment: Speci men Type: BLOOD SPECIMENOrdering Facility: [facility] Address: [address] [place] [address] Performed By: #### 5 7021-8 ####[facility] LABORATORYCLIA [id number] [place] [address] [place] MCH (RBC) [Entitic mass] 28.5 pg Normal 26.0-34.0 [facility] Comment on above: Order Comment: Speci men Type: BLOOD SPECIMENOrdering Facility: [facility] Address: [address] [place] [address] Performed By: #### 5 7021-8 ####[facility] LABORATORYCLIA [id number] [address] MCHC (RBC) [Mass/Vol] 32.5 g/dL Normal 30.5-36.0 [facility] Comment on above: Order Comment: Speci men Type: BLOOD SPECIMENOrdering Facility: [facility] Address: [address] [place] [address] Performed By: #### 5 7021-8 ####[facility] LABORATORYCLIA [id number] [address] MCV (RBC) [Entitic vol] 87.5 fL Normal 80.0-100.0 [facility] Comment on above: Order Comment: Speci men Type: BLOOD SPECIMENOrdering Facility: [facility] Address: [address] [place] [address] Performed By: #### 5 7021-8 ####[facility] LABORATORYCLIA [id number] [address] [place] Monocytes (Bld) [#/Vol] 0.81 10*3/uL Normal <0.87 [facility] Comment on above: Order Comment: Speci men Type: BLOOD SPECIMENOrdering Facility: [facility] Address: [address] [place] [address] Performed By: #### 5 7021-8 ####[facility] LABORATORYCLIA [id number] [address] Monocytes/100 WBC (Bld) 7.4 % Normal [facility] Comment on above: Order Comment: Speci men Type: BLOOD SPECIMENOrdering Facility: [facility] Address: [address] [place] [address] Performed By: #### 5 7021-8 ####[facility] LABORATORYCLIA [id number] [place] [address] [place] Neutrophils (Bld) [#/Vol] 8.99 10*3/uL High 1.45-7.50 [facility] Comment on above: Order Comment: Speci men Type: BLOOD SPECIMENOrdering Facility: [facility] Address: [address] [place] [address] Performed By: #### 5 7021-8 ####[facility] LABORATORYCLIA [id number] [address] Neutrophils/100 WBC (Bld) 82.4 % Normal [facility] Comment on above: Order Comment: Speci men Type: BLOOD SPECIMENOrdering Facility: [facility] Address: [address] [place] [address] Performed By: #### 5 7021-8 ####VILL[facility] LABORATORYCLIA [id number] [place] [address] [place] Nucleated RBC (Bld) [#/Vol] 10*3/uL Normal <0.01 [facility] Comment on above: Order Comment: Speci men Type: BLOOD SPECIMENOrdering Facility: [facility] Address: [address] [place] [address] Performed By: #### 5 7021-8 ####VILL[facility] LABORATORYCLIA [id number] [address] [place] Nucleated RBC/100 WBC (Bld) [Ratio] 0.0 /100 WBC Normal [facility] Comment on above: Order Comment: Speci men Type: BLOOD SPECIMENOrdering Facility: [facility] Address: [address] [place] [address] Performed By: #### 5 7021-8 ####[facility] LABORATORYCLIA [id number] [address] [place] Platelet mean volume (Bld) [Entitic vol] 8.3 fL Low 9.0-12.7 [facility] Comment on above: Order Comment: Speci men Type: BLOOD SPECIMENOrdering Facility: [facility] Address: [address] [place] [address] Performed By: #### 5 7021-8 ####[facility] LABORATORYCLIA [id number] [address] [place] Platelets (Bld) [#/Vol] 564 10*3/uL High 150-400 [facility] Comment on above: Order Comment: Speci men Type: BLOOD SPECIMENOrdering Facility: [facility] Address: [address] [place] [address] Performed By: #### 5 7021-8 ####V[facility] LABORATORYCLIA [id number] [place] [id number] [place] RBC (Bld) [#/Vol] 2.88 10*6/uL Low 3.90-5.[address] [facility] Comment on above: Order Comment: Speci men Type: BLOOD SPECIMENOrdering Facility: [facility] Address: [address] [place] [address] Performed By: #### 5 7021-8 ####[facility] LABORATORYCLIA [id number] [address] OF [facility] WBC (Bld) [#/Vol] 10.92 10*3/uL Normal 3.70-11.00 [facility] Comment on above: Order Comment: Speci men Type: BLOOD SPECIMENOrdering Facility: [facility] Address: [address] [place] [address] Performed By: #### 5 7021-8 ####[facility] LABORATORYCLIA [id number] [address] [place] CONSULTon 12-07-2024 CONSULT Normal [facility] CONSULT PROGon 12-07-2024 CONSULT PROG Normal [facility] CONSULT PROG Normal [facility] CONSULT PROG Normal [facility] Normal [facility] CRP SerPl-mCncon 12-07-2024 CRP [Mass/Vol] 3.6 mg/dL High <0.9 [facility] Comment on above: Order Comment: Speci men Type: BLOOD SPECIMENOrdering Facility: [facility] Address: [address] [place] [address] Performed By: #### 1 988-5, 04653-8, 31137-0, 3040-3 ####[facility] LABORATORYCLIA [id number] [address] Comprehensive metabolic 2000 panelon 12-07-2024 Albumin [Mass/Vol] 2.6 g/dL Low 3.9-4.9 [facility] Comment on above: Order Comment: Speci men Type: BLOOD SPECIMENOrdering Facility: [facility] Address: [address] [place] [address] Performed By: #### 1 988-5, 04663-2, 83579-5, 3040-3 ####[facility] LABORATORYCLIA [id number] [place] [address] [place] ALP [Catalytic activity/Vol] 111 U/L Normal 34-123 [facility] Comment on above: Order Comment: Speci men Type: BLOOD SPECIMENOrdering Facility: [facility] Address: [address] [place] [address] Performed By: #### 1 988-5, 03669-9, 39140-1, 3040-3 ####[facility] LABORATORYCLIA [id number] [place] [address] [place] ALT [Catalytic activity/Vol] U/L Low 7-38 [facility] Comment on above: Order Comment: Speci men Type: BLOOD SPECIMENOrdering Facility: [facility] Address: [address] [place] [address] Performed By: #### 1 988-5, 67508-6, 54207-9, 3040-3 ####[facility] LABORATORYCLIA [id number] [place] [address] [place] Anion gap [Moles/Vol] 9 mmol/L Normal 8-15 [facility] Comment on above: Order Comment: Speci men Type: BLOOD SPECIMENOrdering Facility: [facility] Address: [address] [place] [address] Performed By: #### 1 988-5, 46385-4, 61098-1, 3040-3 ####[facility] LABORATORYCLIA [id number] [place] [address] [place] AST [Catalytic activity/Vol] 29 U/L Normal 13-35 [facility] Comment on above: Order Comment: Speci men Type: BLOOD SPECIMENOrdering Facility: [facility] Address: [address] [place] [address] [place] [address] Performed By: #### 1 988-5, 28526-6, 10978-0, 3040-3 ####[facility] LABORATORYCLIA [id number] [place] [address] [place] Bilirubin [Mass/Vol] mg/dL Low 0.2-1.3 [facility] Comment on above: Order Comment: Speci men Type: BLOOD SPECIMENOrdering Facility: [facility] Address: [facility] [place] [address] Performed By: #### 1 988-5, 38268-3, 07837-3, 0-3 ####[facility]ORATORYCLIA [id number] [place] [address] [place] Calcium [Mass/Vol] 9.3 mg/dL Normal 8.5-10.2 [facility] Comment on above: Order Comment: Speci men Type: BLOOD SPECIMENOrdering Facility: [facility] Address: [address] [place] [address] Performed By: #### 1 988-5, 89629-0, 03702-5, 0-3 ####[facility]ORATORYCLIA [id number] [place] [address] [place] Chloride [Moles/Vol] 98 mmol/L Normal 98-107 [facility] Comment on above: Order Comment: Speci men Type: BLOOD SPECIMENOrdering Facility: [facility] Address: [address] [place] [address] Performed By: #### 1 988-5, 45871-4, 64753-9, 0-3 ####[facility]ORATORYCLIA [id number] [place] [address] [place] CO2 [Moles/Vol] 28 mmol/L Normal 22-30 [facility] Comment on above: Order Comment: Speci men Type: BLOOD SPECIMENOrdering Facility: [facility] Address: [address] [place] [address] Performed By: #### 1 988-5, 93333-4, 88396-5, 3040-3 ####[facility]ORATORYCLIA [id number] [place] [address] [place] Creatinine [Mass/Vol] 0.76 mg/dL Normal 0.58-0.96 [facility] Comment on above: Order Comment: Speci men Type: BLOOD SPECIMENOrdering Facility: [facility] Address: [address] [place] [address] Performed By: #### 1 988-5, 24808-5, 45099-8, 3040-3 ####[facility]ORATORYCLIA [id number] [place] [id number] [place] Creatinine and Glomerular filtration rate.predicted panel (S/P/Bld) 75 mL/min/1.73m??? Normal >=60 [facility] Comment on above: Order Comment: Fan meade Type: BLOOD SPECIMENOrdering Facility: [facility] Address: [address] [place] [address] Result Comment: Hilda mated Glomerular Filtration Rate [...] actual GFR. Performed By: #### 1 988-5, 90972-9, 93044-4, 3040-3 ####[facility]ORATORYCLIA [id number] [place] [id number] [place] Glucose [Mass/Vol] 260 mg/dL High 74-99 [facility] Comment on above: Order Comment: Fan meade Type: BLOOD SPECIMENOrdering Facility: [facility] Address: [address] [place] [address] Result Comment: The [place] [employer] (ADA) provides guidance for cutoff [...] Standards of Medical Care in Diabetes 2016, [place] [employer]. Diabetes Care. 2016.39(Suppl 1). Performed By: #### 1 988-5, 90082-1, 88194-4, 0-3 ####[facility] LABORATORYCLIA [id number] [place] [address] [place] Potassium [Moles/Vol] 4.5 mmol/L Normal 3.7-5.1 [facility] Comment on above: Order Comment: Speci men Type: BLOOD SPECIMENOrdering Facility: [facility] Address: [address] [place] [address] Performed By: #### 1 988-5, 80187-7, 67741-1, 0-3 ####[facility]ORATORYCLIA [id number] [place] [id number] [place] Protein [Mass/Vol] 5.5 g/dL Low 6.3-8.0 [facility] Comment on above: Order Comment: Speci men Type: BLOOD SPECIMENOrdering Facility: [facility] Address: [address] [place] [address] Performed By: #### 1 988-5, 49765-4, 37674-3, 0-3 ####[facility] LABORATORYCLIA [id number] [place] [id number] [place] Sodium [Moles/Vol] 135 mmol/L Low 136-144 [facility] Comment on above: Order Comment: Speci men Type: BLOOD SPECIMENOrdering Facility: [facility] Address: [address] [place] [address] Performed By: #### 1 988-5, 17705-9, 29981-9, 0-3 ####[facility] LABORATORYCLIA [id number] [place] [address] [place] Urea nitrogen [Mass/Vol] 43 mg/dL High 7-21 [facility] Comment on above: Order Comment: Speci men Type: BLOOD SPECIMENOrdering Facility: [facility] Address: [address] [place] [address] Performed By: #### 1 988-5, 16511-1, 43852-0, 3040-3 ####[facility] LABORATORYCLIA [id number] [place] [address] [place] ESR Westergren method (Bld) [Velocity]on 12-07-2024 ESR (Bld) [Velocity] 103 mm/h High 0-20 [facility] Comment on above: Order Comment: Speci men Type: BLOOD SPECIMENOrdering Facility: [facility] Address: [address] [place] [address] Performed By: #### 4 537-7 ####[facility] LABCLIA [id number] [facility] [id number] [address] [place] Folate SerPl-mCncon 12-07-19 25 Folate [Mass/Vol] 7.7 ng/mL Normal >4.7 [facility] Comment on above: Order Comment: Speci men Type: BLOOD SPECIMENOrdering Facility: [facility] Address: [address] [place] [address] Performed By: #### 2 284-8, 2132-9 ####[facility]ORATORYCLIA [id number] [address] STATES OF [facility] Lipase SerPl-cCncon 12-07-19 25 Lipase [Catalytic activity/Vol] 50 U/L Normal 16-61 [facility] Comment on above: Order Comment: Speci men Type: BLOOD SPECIMENOrdering Facility: [facility] Address: [address] [place] [address] Performed By: #### 1 988-5, 34477-6, 12411-2, 3040-3 ####[facility]ORATORYCLIA [id number] [place] [id number] [place] Magnesium SerPl-mCncon 12-07 Magnesium [Mass/Vol] 1.7 mg/dL Normal 1.7-2.3 [facility] Comment on above: Order Comment: Speci men Type: BLOOD SPECIMENOrdering Facility: [facility] Address: [address] [place] [address] Performed By: #### 1 988-5, 89546-3, 88834-1, 3040-3 ####[facility]ORATORYCLIA [id number] [place] [address] [place] US DVT LOWER BILon 01-24-202 5 US DVT LOWER RADHA Normal [facility] Vit B12 SerPl-mCncon 025 Cobalamin (Vitamin B12) [Mass/Vol] 400 pg/mL Normal 232-1245 [facility] Comment on above: Order Comment: Speci men Type: BLOOD SPECIMENOrdering Facility: [facility] Address: [address] [place] [address] Performed By: #### 2 284-8, 2132-9 ####[facility]ORATORYCLIA [id number] [place] [address] [place] XR ABD 2V SUPINE W UPR/DECUB /CTLon 12-07-2024 XR ABD 2V SUPINE W UPR/DECUB/CTL Normal [facility] CASE MANAGEMon 12-06-2024 CASE MANAGEM [facility] CBC W Auto Differential pane l (Bld)on 12-06-2024 Basophils (Bld) [#/Vol] 0.03 10*3/uL Normal <0.11 [facility] Comment on above: Order Comment: Speci men Type: BLOOD SPECIMENOrdering Facility: [facility] Address: [address] [place] [address] Performed By: #### 5 7021-8 ####[facility] LABORATORYCLIA [id number] [address] STATES [facility] Basophils/100 WBC (Bld) 0.2 % Normal [facility] Comment on above: Order Comment: Speci men Type: BLOOD SPECIMENOrdering Facility: [facility] Address: [address] [place] [address] Performed By: #### 5 7021-8 ####[facility] LABORATORYCLIA [id number] [place] [address] [place] Differential cell count method Nom (Bld) Auto Normal [facility] Comment on above: Order Comment: Speci men Type: BLOOD SPECIMENOrdering Facility: [facility] Address: [address] [place] [address] Performed By: #### 5 7021-8 ####[facility] LABORATORYCLIA [id number] [place] [address] [place] Eosinophils (Bld) [#/Vol] 0.09 10*3/uL Normal <0.46 [facility] Comment on above: Order Comment: Speci men Type: BLOOD SPECIMENOrdering Facility: [facility] Address: [address] [place] [address] Performed By: #### 5 7021-8 ####VILLARREAL LABORATORYCLIA [id number] [address] [place] Eosinophils/100 WBC (Bld) 0.6 % Normal [facility] Comment on above: Order Comment: Speci men Type: BLOOD SPECIMENOrdering Facility: [facility] Address: [address] [place] [address] Performed By: #### 5 7021-8 ####[facility] LABORATORYCLIA [id number] [address] Erythrocyte distribution width (RBC) [Ratio] 15.9 % High 11.5-15.0 [facility] Comment on above: Order Comment: Speci men Type: BLOOD SPECIMENOrdering Facility: [facility] Address: [address] [place] [address] Performed By: #### 5 7021-8 ####[facility] LABORATORYCLIA [id number] [address] Hematocrit (Bld) [Volume fraction] 25.5 % Low 36.0-46.0 [facility] Comment on above: Order Comment: Speci men Type: BLOOD SPECIMENOrdering Facility: [facility] Address: [address] [place] [address] Performed By: #### 5 7021-8 ####[facility] LABORATORYCLIA [id number] [address] [place] Hemoglobin (Bld) [Mass/Vol] 8.3 g/dL Low 11.5-15.5 [facility] Comment on above: Order Comment: Speci men Type: BLOOD SPECIMENOrdering Facility: [facility] Address: [address] [place] [address] Performed By: #### 5 7021-8 ####[facility] LABORATORYCLIA [id number] [address] [place] Immature granulocytes (Bld) [#/Vol] 0.15 10*3/uL High <0.10 [facility] Comment on above: Order Comment: Speci men Type: BLOOD SPECIMENOrdering Facility: [facility] Address: [address] [place] [address] Performed By: #### 5 7021-8 ####[facility] LABORATORYCLIA [id number] [address] [place] Immature granulocytes/100 WBC (Bld) 1.0 % Normal [facility] Comment on above: Order Comment: Speci men Type: BLOOD SPECIMENOrdering Facility: [facility] Address: [address] [place] [address] Performed By: #### 5 7021-8 ####[facility] LABORATORYCLIA [id number] [address] [place] Lymphocytes (Bld) [#/Vol] 0.98 10*3/uL Low 1.00-4.00 [facility] Comment on above: Order Comment: Speci men Type: BLOOD SPECIMENOrdering Facility: [facility] Address: [address] [place] [address] Performed By: #### 5 7021-8 ####[facility] LABORATORYCLIA [id number] [address] [place] [facility] Lymphocytes/100 WBC (Bld) 6.7 % Normal [facility] Comment on above: Order Comment: Speci men Type: BLOOD SPECIMENOrdering Facility: [facility] Address: [address] [place] [address] Performed By: #### 5 7021-8 ####[facility] LABORATORYCLIA [id number] [place] [address] [place] MCH (RBC) [Entitic mass] 27.9 pg Normal 26.0-34.0 [facility] Comment on above: Order Comment: Speci men Type: BLOOD SPECIMENOrdering Facility: [facility] Address: [address] [place] [address] Performed By: #### 5 7021-8 ####[facility] LABORATORYCLIA [id number] [place] [address] [place] MCHC (RBC) [Mass/Vol] 32.5 g/dL Normal 30.5-36.0 [facility] Comment on above: Order Comment: Speci men Type: BLOOD SPECIMENOrdering Facility: [facility] Address: [address] [place] [address] Performed By: #### 5 7021-8 ####[facility] LABORATORYCLIA [id number] [place] [address] [place] MCV (RBC) [Entitic vol] 85.9 fL Normal 80.0-100.0 [facility] Comment on above: Order Comment: Speci men Type: BLOOD SPECIMENOrdering Facility: [facility] Address: [address] [place] [address] Performed By: #### 5 7021-8 ####[facility] LABORATORYCLIA [id number] [place] [address] [place] Monocytes (Bld) [#/Vol] 0.94 10*3/uL High <0.87 [facility] Comment on above: Order Comment: Speci men Type: BLOOD SPECIMENOrdering Facility: [facility] Address: [address] [place] [address] Performed By: #### 5 7021-8 ####[facility] LABORATORYCLIA [id number] [address] Monocytes/100 WBC (Bld) 6.5 % Normal [facility] Comment on above: Order Comment: Speci men Type: BLOOD SPECIMENOrdering Facility: [facility] Address: [address] [place] [address] Performed By: #### 5 7021-8 ####[facility]ILL[facility] LABORATORYCLIA [id number] [place] [address] [place] Neutrophils (Bld) [#/Vol] 12.37 10*3/uL High 1.45-7.50 [facility] Comment on above: Order Comment: Speci men Type: BLOOD SPECIMENOrdering Facility: [facility] Address: [address] [place] [address] Performed By: #### 5 7021-8 ####[facility] LABORATORYCLIA [id number] [address] [place] [facility] Neutrophils/100 WBC (Bld) 85.0 % Normal [facility] Comment on above: Order Comment: Speci men Type: BLOOD SPECIMENOrdering Facility: [facility] Address: [address] [place] [address] Performed By: #### 5 7021-8 ####[facility] LABORATORYCLIA [id number] [place] [address] [place] Nucleated RBC (Bld) [#/Vol] 10*3/uL Normal <0.01 [facility] Comment on above: Order Comment: Speci men Type: BLOOD SPECIMENOrdering Facility: [facility] Address: [address] [place] [address] Performed By: #### 5 7021-8 ####[facility] LABORATORYCLIA [id number] [address] [place] Nucleated RBC/100 WBC (Bld) [Ratio] 0.0 /100 WBC Normal [facility] Comment on above: Order Comment: Speci men Type: BLOOD SPECIMENOrdering Facility: [facility] Address: [address] [place] [address] Performed By: #### 5 7021-8 ####[facility] LABORATORYCLIA [id number] [place] [address] [place] Platelet mean volume (Bld) [Entitic vol] 8.3 fL Low 9.0-12.7 [facility] Comment on above: Order Comment: Speci men Type: BLOOD SPECIMENOrdering Facility: [facility] Address: [address] [place] [address] Performed By: #### 5 7021-8 ####[facility] LABORATORYCLIA [id number] [place] [address] [place] Platelets (Bld) [#/Vol] 602 10*3/uL High 150-400 [facility] Comment on above: Order Comment: Speci men Type: BLOOD SPECIMENOrdering Facility: [facility] Address: [address] [place] [address] Performed By: #### 5 7021-8 ####[facility] LABORATORYCLIA [id number] [place] [address] [place] RBC (Bld) [#/Vol] 2.97 10*6/uL Low 3.90-5.[address] [facility] Comment on above: Order Comment: Speci men Type: BLOOD SPECIMENOrdering Facility: [facility] Address: [address] [place] [address] Performed By: #### 5 7021-8 ####[facility]ORATORYCLIA [id number] [place] [address] [place] WBC (Bld) [#/Vol] 14.56 10*3/uL High 3.70-11.00 [facility] Comment on above: Order Comment: Speci men Type: BLOOD SPECIMENOrdering Facility: [facility] Address: [address] [place] [address] Performed By: #### 5 7021-8 ####[facility]ORATORYCLIA [id number] [address] CONSULTon 12-06-2024 CONSULT Normal [facility] CONSULT Normal [facility] CONSULT PROGon 12-06-2024 CONSULT PROG Normal [facility] CONSULT PROG [facility] Comprehensive metabolic 2000 panelon 12-06-2024 Albumin [Mass/Vol] 2.5 g/dL Low 3.9-4.9 [facility] Comment on above: Order Comment: Speci men Type: BLOOD SPECIMENOrdering Facility: [facility] Address: [address] [place] [address] Performed By: #### 2 951-2, , ####[facility] LABORATORYCLIA [id number] [place] [id number] [facility] ALP [Catalytic activity/Vol] 112 U/L Normal 34-123 [facility] Comment on above: Order Comment: Speci men Type: BLOOD SPECIMENOrdering Facility: [facility] Address: [address] [place] [address] Performed By: #### 2 951-2, , 40584-2 ####[facility] LABORATORYCLIA [id number] [place] [address] [place] ALT [Catalytic activity/Vol] U/L Low 7-38 [facility] Comment on above: Order Comment: Speci men Type: BLOOD SPECIMENOrdering Facility: [facility] Address: [address] [place] [id number] Performed By: #### 2 951-2, , ####[facility] LABORATORYCLIA [id number] [place] [address] [place] Anion gap [Moles/Vol] 10 mmol/L Normal 8-15 [facility] Comment on above: Order Comment: Speci men Type: BLOOD SPECIMENOrdering Facility: [facility] Address: [address] [place] [address] Performed By: #### 2 951-2, , ####VILLAR[facility] LABORATORYCLIA [id number] [address] [place] AST [Catalytic activity/Vol] 25 U/L Normal 13-35 [facility] Comment on above: Order Comment: Speci men Type: BLOOD SPECIMENOrdering Facility: [facility] Address: [address] [place] [address] Performed By: #### 2 951-2, , ####VILL[facility] LABORATORYCLIA [id number] [place] [address] [place] Bilirubin [Mass/Vol] mg/dL Low 0.2-1.3 [facility] Comment on above: Order Comment: Speci men Type: BLOOD SPECIMENOrdering Facility: [facility] Address: [address] [place] [address] Performed By: #### 2 951-2, , ####[facility] LABORATORYCLIA [id number] [place] [address] [place] Calcium [Mass/Vol] 9.5 mg/dL Normal 8.5-10.2 [facility] Comment on above: Order Comment: Speci men Type: BLOOD SPECIMENOrdering Facility: [facility] Address: [address] [place] [address] Performed By: #### 2 951-2, , ####[facility]ORATORYCLIA [id number] [place] [address] [place] Chloride [Moles/Vol] 97 mmol/L Low 98-107 [facility] Comment on above: Order Comment: Speci men Type: BLOOD SPECIMENOrdering Facility: [facility] Address: [address] [place] [address] Performed By: #### 2 951-2, , ####[facility]ORATORYCLIA [id number] [place] [id number] [place] CO2 [Moles/Vol] 27 mmol/L Normal 22-30 [facility] Comment on above: Order Comment: Speci men Type: BLOOD SPECIMENOrdering Facility: [facility] Address: [address] [place] [address] Performed By: #### 2 951-2, , ####[facility] LABORATORYCLIA [id number] [place] [address] [place] [facility] Creatinine [Mass/Vol] 0.95 mg/dL Normal 0.58-0.96 [facility] Comment on above: Order Comment: Speci men Type: BLOOD SPECIMENOrdering Facility: [facility] Address: [address] [place] [address] Performed By: #### 2 951-2, , ####[facility]ORATORYCLIA [id number] [address] Creatinine and Glomerular filtration rate.predicted panel (S/P/Bld) 58 mL/min/1.73m??? Low >=60 [facility] Comment on above: Order Comment: Speci men Type: BLOOD SPECIMENOrdering Facility: [facility] Address: [address] [place] [address] Result Comment: Hilda mated Glomerular Filtration Rate [...] GFR. Performed By: #### 2 951-2, , ####[facility] LABORATORYCLIA [id number] [place] [address] [place] Glucose [Mass/Vol] 93 mg/dL Normal 74-99 [facility] Comment on above: Order Comment: Fan meade Type: BLOOD SPECIMENOrdering Facility: [facility] Address: [address] [place] [address] Result Comment: The [place] [employer] (ADA) provides guidance for cutoff [...] Standards of Medical Care in Diabetes 2016, [place] [employer]. Diabetes Care. 2016.39(Suppl 1). Performed By: #### 2 951-2, , ####[facility] LABORATORYCLIA [id number] [place] [id number] [place] Potassium [Moles/Vol] 3.8 mmol/L Normal 3.7-5.1 [facility] Comment on above: Order Comment: Fan meade Type: BLOOD SPECIMENOrdering Facility: [facility] Address: [address] [place] [address] Performed By: #### 2 951-2, , ####[facility]ORATORYCLIA [id number] [place] [address] [place] Protein [Mass/Vol] 5.7 g/dL Low 6.3-8.0 [facility] Comment on above: Order Comment: Fan meade Type: BLOOD SPECIMENOrdering Facility: [facility] Address: [address] [place], [place] [address] Performed By: #### 2 951-2, , ####V[facility] LABORATORYCLIA [id number] [place] [address] [place] Urea nitrogen [Mass/Vol] 45 mg/dL High 7-21 [facility] Comment on above: Order Comment: Speci men Type: BLOOD SPECIMENOrdering Facility: [facility] Address: [address] [place] [address] Performed By: #### 2 951-2, , ####[facility] LABORATORYCLIA [id number] [place] [address] [place] Magnesium SerPl-mCncon 12-06 Magnesium [Mass/Vol] 1.8 mg/dL Normal 1.7-2.3 [facility] Comment on above: Order Comment: Speci men Type: BLOOD SPECIMENOrdering Facility: [facility] Address: [address] [place] [address] Performed By: #### 2 951-2, , ####VILL[facility] LABORATORYCLIA [id number] [place] [id number] [place] Sodium SerPl-sCncon 12-06-19 25 Sodium [Moles/Vol] 135 mmol/L Low 136-144 [facility] Comment on above: Order Comment: Speci men Type: BLOOD SPECIMENOrdering Facility: [facility] Address: [address] [place] [address] Performed By: #### 2 951-2 ####[facility] LABORATORYCLIA [id number] [place] [address] [place] Sodium [Moles/Vol] 132 mmol/L Low 136-144 [facility] Comment on above: Order Comment: Speci men Type: BLOOD SPECIMENOrdering Facility: [facility] Address: [address] [place] [address] Performed By: #### 2 951-2 ####[facility] LABORATORYCLIA [id number] [place] [address] [place] Sodium [Moles/Vol] 136 mmol/L Normal 136-144 [facility] Comment on above: Order Comment: Speci men Type: BLOOD SPECIMENOrdering Facility: [facility] Address: [address] [place] [address] Performed By: #### 2 951-2 ####[facility] LABORATORYCLIA [id number] [place] [address] [place] Sodium [Moles/Vol] 134 mmol/L Low 136-144 [facility] Comment on above: Order Comment: Speci men Type: BLOOD SPECIMENOrdering Facility: [facility] Address: [address] [place] [address] Performed By: #### 2 951-2, 83819-9, 48451-0 ####[facility] LABORATORYCLIA [id number] [place] [address] [place] Sodium [Moles/Vol] 131 mmol/L Low 136-144 [facility] Comment on above: Order Comment: Speci men Type: BLOOD SPECIMENOrdering Facility: [facility] Address: [address] [place] [address] Performed By: #### 2 951-2 ####[facility] LABORATORYCLIA [id number] [place] [address] [place] THERAPY NTon 12-06-2024 THERAPY NT Normal [facility] URINALYSIS, REFLEX MICROSCOP ICon 12-06-2024 Bilirubin Ql (U) Negative Normal Negative [facility] Comment on above: Order Comment: Speci men Type: URINE SPECIMENOrdering Facility: [facility] Address: [address] [place] [address] Performed By: #### L [id number] ####[facility] LABORATORYCLIA [id number] [address] [place] Clarity (Unsp spec) Clear Normal Clear [facility] Comment on above: Order Comment: Speci men Type: URINE SPECIMENOrdering Facility: [facility] Address: [address] [place] [address] Performed By: #### L [id number] ####[facility] LABORATORYCLIA [id number] [address] [place] Color (U) Yellow Normal Yellow [facility] Comment on above: Order Comment: Speci men Type: URINE SPECIMENOrdering Facility: [facility] Address: [address] [place] [address] Performed By: #### L [id number] ####[facility] LABORATORYCLIA [id number] [address] STATES OF [facility] Epithelial cells LM.HPF (Urine sed) [#/Area] Few Normal [facility] Comment on above: Order Comment: Speci men Type: URINE SPECIMENOrdering Facility: [facility] Address: [address] [place] [address] Performed By: #### L [id number] ####[facility] LABORATORYCLIA [id number] [address] [place] Glucose Test strip (U) [Mass/Vol] Negative Normal Negative [facility] Comment on above: Order Comment: Speci men Type: URINE SPECIMENOrdering Facility: [facility] Address: [address] [place] [address] Performed By: #### L [id number] ####[facility] LABORATORYCLIA [id number] [place] [address] [place] Hemoglobin Ql (U) Negative Normal Negative [facility] Comment on above: Order Comment: Speci men Type: URINE SPECIMENOrdering Facility: [facility] Address: [address] [place] [address] Performed By: #### L [id number] ####[facility] LABORATORYCLIA [id number] [address] [place] Ketones Ql (U) Negative Normal Negative [facility] Comment on above: Order Comment: Speci men Type: URINE SPECIMENOrdering Facility: [facility] Address: [address] [place] [address] Performed By: #### L [id number] ####[facility] LABORATORYCLIA [id number] [address] Leukocyte esterase Test strip Ql (U) 1+ Abnormal Negative [facility] Comment on above: Order Comment: Speci men Type: URINE SPECIMENOrdering Facility: [facility] Address: [address] [place] [address] Performed By: #### L [id number] ####[facility] LABORATORYCLIA [id number] [place] [address] [place] Nitrite Ql (U) Negative Normal Negative [facility] Comment on above: Order Comment: Speci men Type: URINE SPECIMENOrdering Facility: [facility] Address: [address] [place] [address] Performed By: #### L [id number] ####[facility] LABORATORYCLIA [id number] [address] [place] pH (U) 6.0 [pH] Normal 5.0-8.0 [facility] Comment on above: Order Comment: Speci men Type: URINE SPECIMENOrdering Facility: [facility] Address: [address] [place] [address] Performed By: #### L [id number] ####[facility] LABORATORYCLIA [id number] [address] Protein (U) [Mass/Vol] 1+ Abnormal Negative [facility] Comment on above: Order Comment: Speci men Type: URINE SPECIMENOrdering Facility: [facility] Address: [address] [place] [address] Performed By: #### L [id number] ####[facility] LABORATORYCLIA [id number] [address] RBC LM.HPF (Urine sed) [#/Area] 0-3 /HPF Normal 0-3 /HPF [facility] Comment on above: Order Comment: Speci men Type: URINE SPECIMENOrdering Facility: [facility] Address: [address] [place] [address] Performed By: #### L [id number] ####[facility] LABORATORYCLIA [id number] [address] Specific gravity (U) [Rel density] 1.010 Normal 1.005-1.030 [facility] Comment on above: Order Comment: Speci men Type: URINE SPECIMENOrdering Facility: [facility] Address: [address] [place] [address] Performed By: #### L [id number] ####[facility]ORATORYCLIA [id number] [place] [address] [place] Urobilinogen Ql (U) 0.2 EU/dL Normal 0.2-1.0 EU/dL [facility] Comment on above: Order Comment: Speci men Type: URINE SPECIMENOrdering Facility: [facility] Address: [address] [place] [address] Performed By: #### L [id number] ####[facility]ORATORYCLIA [id number] [place] [address] [place] WBC LM.HPF (Urine sed) [#/Area] 0-5 /HPF Normal 0-5 /HPF [facility] Comment on above: Order Comment: Speci men Type: URINE SPECIMENOrdering Facility: [facility] Address: [address] [place] [address] Performed By: #### L [id number] ####[facility]ATORYCLIA [id number] [address] [place] Yeast.budding LM.HPF (Urine sed) [#/Area] Few Abnormal None Seen [facility] Comment on above: Order Comment: Speci men Type: URINE SPECIMENOrdering Facility: [facility] Address: [address] [place] [address] Performed By: #### L [id number] ####[facility]ORATORYCLIA [id number] [place] [address] [place] ALLIED HEALTHon 12-05-2024 ALLIED HEALTH Normal [facility] CASE MANAGEMon 12-05-2024 CASE MANAGEM Normal [facility] CASE MANAGEM Normal [facility] CBC W Auto Differential pane l (Bld)on 12-05-2024 Basophils (Bld) [#/Vol] 10*3/uL Normal <0.11 [facility] Comment on above: Order Comment: Speci men Type: BLOOD SPECIMENOrdering Facility: [facility] Address: [address] [place] [address] Performed By: #### 5 7021-8 ####[facility]ATORYCLIA [id number] [address] [place] Basophils/100 WBC (Bld) 0.1 % Normal [facility] Comment on above: Order Comment: Speci men Type: BLOOD SPECIMENOrdering Facility: [facility] Address: [address] [place] [address] Performed By: #### 5 7021-8 ####[facility]ORATORYCLIA [id number] [place] [address] [place] Differential cell count method Nom (Bld) Auto Normal [facility] Comment on above: Order Comment: Speci men Type: BLOOD SPECIMENOrdering Facility: [facility] Address: [address] [place] [address] Performed By: #### 5 7021-8 ####[facility]ORATORYCLIA [id number] [place] [address] [place] Eosinophils (Bld) [#/Vol] 10*3/uL Normal <0.46 [facility] Comment on above: Order Comment: Speci men Type: BLOOD SPECIMENOrdering Facility: [facility] Address: [address] [place] [address] Performed By: #### 5 7021-8 ####[facility]ORATORYCLIA [id number] [place] [address] [place] Eosinophils/100 WBC (Bld) 0.0 % Normal [facility] Comment on above: Order Comment: Speci men Type: BLOOD SPECIMENOrdering Facility: [facility] Address: [address] [place] [address] Performed By: #### 5 7021-8 ####[facility]ORATORYCLIA [id number] [place] [address] [place] Erythrocyte distribution width (RBC) [Ratio] 15.8 % High 11.5-15.0 [facility] Comment on above: Order Comment: Speci men Type: BLOOD SPECIMENOrdering Facility: [facility] Address: [address] [place] [address] Performed By: #### 5 7021-8 ####[facility]ORATORYCLIA [id number] [place] [address] [place] Hematocrit (Bld) [Volume fraction] 26.3 % Low 36.0-46.0 [facility] Comment on above: Order Comment: Speci men Type: BLOOD SPECIMENOrdering Facility: [facility] Address: [address] [place] [address] Performed By: #### 5 7021-8 ####[facility]ORATORYCLIA [id number] [place] [address] [place] Hemoglobin (Bld) [Mass/Vol] 8.5 g/dL Low 11.5-15.5 [facility] Comment on above: Order Comment: Speci men Type: BLOOD SPECIMENOrdering Facility: [facility] Address: [address] [place] [address] Performed By: #### 5 7021-8 ####[facility]ORATORYCLIA [id number] [place] [address] [place] Immature granulocytes (Bld) [#/Vol] 0.11 10*3/uL High <0.10 [facility] Comment on above: Order Comment: Speci men Type: BLOOD SPECIMENOrdering Facility: [facility] Address: [address] [place] [address] Performed By: #### 5 7021-8 ####[facility]ORATORYCLIA [id number] [place] [address] [place] Immature granulocytes/100 WBC (Bld) 0.9 % Normal [facility] Comment on above: Order Comment: Speci men Type: BLOOD SPECIMENOrdering Facility: [facility] Address: [address] [place] [address] Performed By: #### 5 7021-8 ####[facility] LABORATORYCLIA [id number] [place] [address] [place] Lymphocytes (Bld) [#/Vol] 0.46 10*3/uL Low 1.00-4.00 [facility] Comment on above: Order Comment: Speci men Type: BLOOD SPECIMENOrdering Facility: [facility] Address: [address] [place] [address] Performed By: #### 5 7021-8 ####[facility] LABORATORYCLIA [id number] [place] [address] [place] Lymphocytes/100 WBC (Bld) 3.8 % Normal [facility] Comment on above: Order Comment: Speci men Type: BLOOD SPECIMENOrdering Facility: [facility] Address: [address] [place] [address] Performed By: #### 5 7021-8 ####[facility] LABORATORYCLIA [id number] [address] MCH (RBC) [Entitic mass] 27.9 pg Normal 26.0-34.0 [facility] Comment on above: Order Comment: Speci men Type: BLOOD SPECIMENOrdering Facility: [facility] Address: [address] [place] [address] Performed By: #### 5 7021-8 ####[facility] LABORATORYCLIA [id number] [address] MCHC (RBC) [Mass/Vol] 32.3 g/dL Normal 30.5-36.0 [facility] Comment on above: Order Comment: Speci men Type: BLOOD SPECIMENOrdering Facility: [facility] Address: [address] [place] [address] Performed By: #### 5 7021-8 ####[facility] LABORATORYCLIA [id number] [address] MCV (RBC) [Entitic vol] 86.2 fL Normal 80.0-100.0 [facility] Comment on above: Order Comment: Speci men Type: BLOOD SPECIMENOrdering Facility: [facility] Address: [address] [place] [address] Performed By: #### 5 7021-8 ####VILL[facility] LABORATORYCLIA [id number] [address] Monocytes (Bld) [#/Vol] 0.18 10*3/uL Normal <0.87 [facility] Comment on above: Order Comment: Speci men Type: BLOOD SPECIMENOrdering Facility: [facility] Address: [address] [place] [address] Performed By: #### 5 7021-8 ####VILL[facility] LABORATORYCLIA [id number] [address] Monocytes/100 WBC (Bld) 1.5 % Normal [facility] Comment on above: Order Comment: Speci men Type: BLOOD SPECIMENOrdering Facility: [facility] Address: [facility] [place] [address] Performed By: #### 5 7021-8 ####V[facility] LABORATORYCLIA [id number] [place] [address] [place] Neutrophils (Bld) [#/Vol] 11.38 10*3/uL High 1.45-7.50 [facility] Comment on above: Order Comment: Speci men Type: BLOOD SPECIMENOrdering Facility: [facility] Address: [address] [place] [address] Performed By: #### 5 7021-8 ####VILLAR[facility]AL LABORATORYCLIA [id number] [address] [place] Neutrophils/100 WBC (Bld) 93.7 % Normal [facility] Comment on above: Order Comment: Speci men Type: BLOOD SPECIMENOrdering Facility: [facility] Address: [address] [place] [address] Performed By: #### 5 7021-8 ####VILLAR[facility]AL LABORATORYCLIA [id number] [place] [address] [place] Nucleated RBC (Bld) [#/Vol] 10*3/uL Normal <0.01 [facility] Comment on above: Order Comment: Speci men Type: BLOOD SPECIMENOrdering Facility: [facility] Address: [address] [place] [address] Performed By: #### 5 7021-8 ####VILLAR[facility]AL LABORATORYCLIA [id number] [address] [place] Nucleated RBC/100 WBC (Bld) [Ratio] 0.0 /100 WBC Normal [facility] Comment on above: Order Comment: Speci men Type: BLOOD SPECIMENOrdering Facility: [facility] Address: [address] [place] [address] Performed By: #### 5 7021-8 ####VILLARREAL LABORATORYCLIA [id number] [place] [address] [place] Platelet mean volume (Bld) [Entitic vol] 8.8 fL Low 9.0-12.7 [facility] Comment on above: Order Comment: Speci men Type: BLOOD SPECIMENOrdering Facility: [facility] Address: [facility] [place] [address] Performed By: #### 5 7021-8 ####VILLARREAL LABORATORYCLIA [id number] [address] [place] Platelets (Bld) [#/Vol] 568 10*3/uL High 150-400 [facility] Comment on above: Order Comment: Speci men Type: BLOOD SPECIMENOrdering Facility: [facility] Address: [address] [place] [address] Performed By: #### 5 7021-8 ####VILLAR[facility]AL LABORATORYCLIA [id number] [address] [place] RBC (Bld) [#/Vol] 3.05 10*6/uL Low 3.90-5.[address] [facility] Comment on above: Order Comment: Speci men Type: BLOOD SPECIMENOrdering Facility: [facility] Address: [address] [place] [address] Performed By: #### 5 7021-8 ####VILLAR[facility]AL LABORATORYCLIA [id number] [address] [place] WBC (Bld) [#/Vol] 12.14 10*3/uL High 3.70-11.00 [facility] Comment on above: Order Comment: Speci men Type: BLOOD SPECIMENOrdering Facility: [facility] Address: [facility] [place] [address] Performed By: #### 5 7021-8 ####VILLARREAL LABORATORYCLIA [id number] [address] [place] CBC panel Auto (Bld)on 12-05 Erythrocyte distribution width (RBC) [Ratio] 15.8 % High 11.5-15.0 [facility] Comment on above: Order Comment: Speci men Type: BLOOD SPECIMENOrdering Facility: [facility] Address: [address] [place] [address] Performed By: #### 5 8410-2 ####[facility]ILL[facility] LABORATORYCLIA [id number] [address] Hematocrit (Bld) [Volume fraction] 24.8 % Low 36.0-46.0 [facility] Comment on above: Order Comment: Speci men Type: BLOOD SPECIMENOrdering Facility: [facility] Address: [address] [place] [address] Performed By: #### 5 8410-2 ####VILL[facility] LABORATORYCLIA [id number] [address] Hemoglobin (Bld) [Mass/Vol] 8.2 g/dL Low 11.5-15.5 [facility] Comment on above: Order Comment: Speci men Type: BLOOD SPECIMENOrdering Facility: [facility] Address: [address] [place] [address] Performed By: #### 5 8410-2 ####VILLAR[facility] LABORATORYCLIA [id number] [address] MCH (RBC) [Entitic mass] 28.1 pg Normal 26.0-34.0 [facility] Comment on above: Order Comment: Speci men Type: BLOOD SPECIMENOrdering Facility: [facility] Address: [address] [place] [address] Performed By: #### 5 8410-2 ####VILLAR[facility] LABORATORYCLIA [id number] [address] MCHC (RBC) [Mass/Vol] 33.1 g/dL Normal 30.5-36.0 [facility] Comment on above: Order Comment: Speci men Type: BLOOD SPECIMENOrdering Facility: [facility] Address: [address] [place] [address] Performed By: #### 5 8410-2 ####VILLAR[facility] LABORATORYCLIA [id number] [address] MCV (RBC) [Entitic vol] 84.9 fL Normal 80.0-100.0 [facility] Comment on above: Order Comment: Speci men Type: BLOOD SPECIMENOrdering Facility: [facility] Address: [address] [place] [address] Performed By: #### 5 8410-2 ####VILLAR[facility]AL LABORATORYCLIA [id number] [place] [address] [place] Nucleated RBC (Bld) [#/Vol] 10*3/uL Normal <0.01 [facility] Comment on above: Order Comment: Speci men Type: BLOOD SPECIMENOrdering Facility: [facility] Address: [address] [place] [address] Performed By: #### 5 8410-2 ####VILLARREAL LABORATORYCLIA [id number] [place] [address] [place] Platelet mean volume (Bld) [Entitic vol] 8.8 fL Low 9.0-12.7 [facility] Comment on above: Order Comment: Speci men Type: BLOOD SPECIMENOrdering Facility: [facility] Address: [address] [place] [address] Performed By: #### 5 8410-2 ####VILLARREAL LABORATORYCLIA [id number] [address] [place] Platelets (Bld) [#/Vol] 574 10*3/uL High 150-400 [facility] Comment on above: Order Comment: Speci men Type: BLOOD SPECIMENOrdering Facility: [facility] Address: [address] [place] [address] Performed By: #### 5 8410-2 ####VILLARREAL LABORATORYCLIA [id number] [place] [address] [place] RBC (Bld) [#/Vol] 2.92 10*6/uL Low 3.90-5.[address] [facility] Comment on above: Order Comment: Speci men Type: BLOOD SPECIMENOrdering Facility: [facility] Address: [address] [place] [address] Performed By: #### 5 8410-2 ####VILLARREAL LABORATORYCLIA [id number] [address] [place] WBC (Bld) [#/Vol] 13.26 10*3/uL High 3.70-11.00 [facility] Comment on above: Order Comment: Speci men Type: BLOOD SPECIMENOrdering Facility: [facility] Address: [address] [place] [id number] Performed By: #### 5 8410-2 ####VILLARREAL LABORATORYCLIA [id number] [place] [address] [place] CONSULT PROGon 12-05-2024 CONSULT PROG Normal [facility] CONSULT PROG Normal [facility] CONSULT PROG Normal [facility] Comprehensive metabolic 2000 panelon 12-05-2024 Albumin [Mass/Vol] 2.5 g/dL Low 3.9-4.9 [facility] Comment on above: Order Comment: Speci men Type: BLOOD SPECIMENOrdering Facility: [facility] Address: [facility] [place] [address] Performed By: #### 3 040-3, 92840-7 ####VILLARREAL LABORATORYCLIA [id number] [place] [address] [place] ALP [Catalytic activity/Vol] 117 U/L Normal 34-123 [facility] Comment on above: Order Comment: Speci men Type: BLOOD SPECIMENOrdering Facility: [facility] Address: [address] [place] [id number] Performed By: #### 3 040-3, ####VILLARREAL LABORATORYCLIA [id number] [place] [address] [place] ALT [Catalytic activity/Vol] U/L Low 7-38 [facility] Comment on above: Order Comment: Speci men Type: BLOOD SPECIMENOrdering Facility: [facility] Address: [address] [place] [address] Performed By: #### 3 040-3, ####VILLARREAL LABORATORYCLIA [id number] [place] [address] [place] Anion gap [Moles/Vol] 13 mmol/L Normal 8-15 [facility] Comment on above: Order Comment: Speci men Type: BLOOD SPECIMENOrdering Facility: [facility] Address: [address] [facility] [place] [id number] Performed By: #### 3 040-3, 74802-9 ####VILLARREAL LABORATORYCLIA [id number] [place] [address] [place] AST [Catalytic activity/Vol] 18 U/L Normal 13-35 [facility] Comment on above: Order Comment: Speci men Type: BLOOD SPECIMENOrdering Facility: [facility] Address: [address] [place] [address] [place] [address] Performed By: #### 3 040-3, ####VILLARREAL LABORATORYCLIA [id number] [place] [address] [place] Bilirubin [Mass/Vol] mg/dL Low 0.2-1.3 [facility] Comment on above: Order Comment: Speci men Type: BLOOD SPECIMENOrdering Facility: [facility] Address: [address] [place] [address] Performed By: #### 3 -3, ####VILLARREAL LABORATORYCLIA [id number] [place] [address] [place] Calcium [Mass/Vol] 9.5 mg/dL Normal 8.5-10.2 [facility] Comment on above: Order Comment: Speci men Type: BLOOD SPECIMENOrdering Facility: [facility] Address: [address] [place] [address] Performed By: #### 3 040-3, ####VILLARREAL LABORATORYCLIA [id number] [place] [address] [place] Chloride [Moles/Vol] 92 mmol/L Low 98-107 [facility] Comment on above: Order Comment: Speci men Type: BLOOD SPECIMENOrdering Facility: [facility] Address: [address] [place] [address] Performed By: #### 3 040-3, ####VILLARREAL LABORATORYCLIA [id number] [place] [address] [place] CO2 [Moles/Vol] 24 mmol/L Normal 22-30 [facility] Comment on above: Order Comment: Speci men Type: BLOOD SPECIMENOrdering Facility: [facility] Address: [address] [place] [address] Performed By: #### 3 040-3, ####VILLARREAL LABORATORYCLIA [id number] [place] [address] [place] Creatinine [Mass/Vol] 1.04 mg/dL High 0.58-0.96 [facility] Comment on above: Order Comment: Fan meade Type: BLOOD SPECIMENOrdering Facility: [facility] Address: [address] [place] [address] Performed By: #### 3 040-3, 36453-0 ####VILLARREAL LABORATORYCLIA [id number] [place] [address] [place] Creatinine and Glomerular filtration rate.predicted panel (S/P/Bld) 52 mL/min/1.73m??? Low >=60 [facility] Comment on above: Order Comment: Fan meade Type: BLOOD SPECIMENOrdering Facility: [facility] Address: [address] [place] [address] Result Comment: Hilda mated Glomerular Filtration Rate [...] actual GFR. Performed By: #### 3 040-3, 28537-0 ####VILLARREAL LABORATORYCLIA [id number] [address] [place] Glucose [Mass/Vol] 279 mg/dL High 74-99 [facility] Comment on above: Order Comment: Fan meade Type: BLOOD SPECIMENOrdering Facility: [facility] Address: [address] [place] [address] Result Comment: The [place] [employer] (ADA) provides guidance for cutoff [...] Standards of Medical Care in Diabetes 2016, [place] [employer]. Diabetes Care. 2016.39(Suppl 1). Performed By: #### 3 040-3, 42379-6 ####VILLARREAL LABORATORYCLIA [id number] [place] [address] [place] Potassium [Moles/Vol] 4.4 mmol/L Normal 3.7-5.1 [facility] Comment on above: Order Comment: Fan meade Type: BLOOD SPECIMENOrdering Facility: [facility] Address: [address] [place] [address] Performed By: #### 3 040-3, 63789-2 ####VILLARREAL LABORATORYCLIA [id number] [place] [address] [place] Protein [Mass/Vol] 5.8 g/dL Low 6.3-8.0 [facility] Comment on above: Order Comment: Fan meade Type: BLOOD SPECIMENOrdering Facility: [facility] Address: [address] [place] [address] Performed By: #### 3 -3, 18268-1 ####[facility] LABORATORYCLIA [id number] [place] [address] [place] Sodium [Moles/Vol] 129 mmol/L Low 136-144 [facility] Comment on above: Order Comment: Fan meade Type: BLOOD SPECIMENOrdering Facility: [facility] Address: [address] [place] [address] Performed By: #### 3 -3, 28297-5 ####VILLARREAL LABORATORYCLIA [id number] [place] [address] [place] Urea nitrogen [Mass/Vol] 49 mg/dL High 7-21 [facility] Comment on above: Order Comment: Fan meade Type: BLOOD SPECIMENOrdering Facility: [facility] Address: [address] [place] [address] Performed By: #### 3 040-3, 10842-0 ####VILLARREAL LABORATORYCLIA [id number] [place] [address] [place] Albumin [Mass/Vol] 2.5 g/dL Low 3.9-4.9 [facility] Comment on above: Order Comment: Speci men Type: BLOOD SPECIMENOrdering Facility: [facility] Address: [address] [place] [id number] Performed By: #### 2 951-2, 87916-9, ####VILLARREAL LABORATORYCLIA [id number] [address] ALP [Catalytic activity/Vol] 122 U/L Normal 34-123 [facility] Comment on above: Order Comment: Speci men Type: BLOOD SPECIMENOrdering Facility: [facility] Address: [address] [place] [address] Performed By: #### 2 951-2, , ####VILLARREAL LABORATORYCLIA [id number] [address] ALT [Catalytic activity/Vol] U/L Low 7-38 [facility] Comment on above: Order Comment: Speci men Type: BLOOD SPECIMENOrdering Facility: [facility] Address: [address] [place] [id number] Performed By: #### 2 951-2, , ####VILLARREAL LABORATORYCLIA [id number] [address] Anion gap [Moles/Vol] 11 mmol/L Normal 8-15 [facility] Comment on above: Order Comment: Speci men Type: BLOOD SPECIMENOrdering Facility: [facility] Address: [address] [place] [id number] Performed By: #### 2 951-2, , ####VILLARREAL LABORATORYCLIA [id number] [place] [id number] [facility] AST [Catalytic activity/Vol] 21 U/L Normal 13-35 [facility] Comment on above: Order Comment: Speci men Type: BLOOD SPECIMENOrdering Facility: [facility] Address: [address] [facility] [place] [id number] Performed By: #### 2 951-2, , ####VILLARREAL LABORATORYCLIA [id number] [place] [address] [place] Bilirubin [Mass/Vol] mg/dL Low 0.2-1.3 [facility] Comment on above: Order Comment: Speci men Type: BLOOD SPECIMENOrdering Facility: [facility] Address: [address] [place] [address] Performed By: #### 2 951-2, , ####VILLARREAL LABORATORYCLIA [id number] [place] [address] [place] Calcium [Mass/Vol] 9.8 mg/dL Normal 8.5-10.2 [facility] Comment on above: Order Comment: Speci men Type: BLOOD SPECIMENOrdering Facility: [facility] Address: [address] [place] [address] Performed By: #### 2 951-2, , ####VILLARREAL LABORATORYCLIA [id number] [place] [address] [place] Chloride [Moles/Vol] 94 mmol/L Low 98-107 [facility] Comment on above: Order Comment: Speci men Type: BLOOD SPECIMENOrdering Facility: [facility] Address: [address] [place] [address] Performed By: #### 2 951-2, , ####VILLARREAL LABORATORYCLIA [id number] [place] [address] [place] CO2 [Moles/Vol] 26 mmol/L Normal 22-30 [facility] Comment on above: Order Comment: Speci men Type: BLOOD SPECIMENOrdering Facility: [facility] Address: [address] [place], [place] [address] Performed By: #### 2 951-2, , ####VILLARREAL LABORATORYCLIA [id number] [place] [address] [place] Creatinine [Mass/Vol] 0.89 mg/dL Normal 0.58-0.96 [facility] Comment on above: Order Comment: Speci men Type: BLOOD SPECIMENOrdering Facility: [facility] Address: [address] [place] [address] Performed By: #### 2 951-2, 80963-8, ####[facility]ORATORYCLIA [id number] [place] [id number] [place] Creatinine and Glomerular filtration rate.predicted panel (S/P/Bld) 62 mL/min/1.73m??? Normal >=60 [facility] Comment on above: Order Comment: Fan maede Type: BLOOD SPECIMENOrdering Facility: [facility] Address: [address] [place] [address] Result Comment: Hilda mated Glomerular Filtration Rate [...] actual GFR. Performed By: #### 2 951-2, 89069-6, 91309-5 ####VILLARREAL LABORATORYCLIA [id number] [place] [id number] [place] Glucose [Mass/Vol] 238 mg/dL High 74-99 [facility] Comment on above: Order Comment: Fan meade Type: BLOOD SPECIMENOrdering Facility: [facility] Address: [address] [place] [address] Result Comment: The [place] [employer] (ADA) provides guidance for cutoff [...] Standards of Medical Care in Diabetes 2016, [place] [employer]. Diabetes Care. 2016.39(Suppl 1). Performed By: #### 2 951-2, 56920-0, ####[facility] LABORATORYCLIA [id number] [place] [address] [place] Potassium [Moles/Vol] 5.2 mmol/L High 3.7-5.1 [facility] Comment on above: Order Comment: Speci men Type: BLOOD SPECIMENOrdering Facility: [facility] Address: [address] [place] [address] Performed By: #### 2 951-2, , ####[facility]ORATORYCLIA [id number] [place] [address] [place] Protein [Mass/Vol] 6.1 g/dL Low 6.3-8.0 [facility] Comment on above: Order Comment: Speci men Type: BLOOD SPECIMENOrdering Facility: [facility] Address: [address] [place] [address] Performed By: #### 2 951-2, , ####[facility]ORATORYCLIA [id number] [place] [address] [place] Urea nitrogen [Mass/Vol] 41 mg/dL High 7-21 [facility] Comment on above: Order Comment: Speci men Type: BLOOD SPECIMENOrdering Facility: [facility] Address: [address] [place] [address] Performed By: #### 2 951-2, , ####[facility] LABORATORYCLIA [id number] [place] [address] [place] ECG COMPLETEon 12-05-2024 ECG COMPLETE Normal [facility] Lipase SerPl-cCncon 12-05-19 25 Lipase [Catalytic activity/Vol] 31 U/L Normal 16-61 [facility] Comment on above: Order Comment: Speci men Type: BLOOD SPECIMENOrdering Facility: [facility] Address: [address] [place] [address] Performed By: #### 3 040-3, 13198-3 ####[facility]ORATORYCLIA [id number] [place] [address] [place] Magnesium SerPl-mCncon 12-05 Magnesium [Mass/Vol] 2.0 mg/dL Normal 1.7-2.3 [facility] Comment on above: Order Comment: Speci men Type: BLOOD SPECIMENOrdering Facility: [facility] Address: [address] [place] [address] Performed By: #### 2 951-2, 61202-9, ####[facility] LABORATORYCLIA [id number] [place] [address] [place] SEPSIS LACTATEon 12-05-2024 Lactate [Moles/Vol] 1.5 mmol/L Normal 0.5-2.[address] [facility] Comment on above: Order Comment: Speci men Type: BLOOD SPECIMENOrdering Facility: [facility] Address: [address] [place] [address] Performed By: #### S LACT ####[facility] LABORATORYCLIA [id number] [place] [address] [place] Sodium SerPl-sCncon 12-05-19 25 Sodium [Moles/Vol] 127 mmol/L Low 136-144 [facility] Comment on above: Order Comment: Speci men Type: BLOOD SPECIMENOrdering Facility: [facility] Address: [address] [place] [address] Performed By: #### 2 951-2 ####[facility] LABORATORYCLIA [id number] [place] [address] [place] Sodium [Moles/Vol] 129 mmol/L Low 136-144 [facility] Comment on above: Order Comment: Speci men Type: BLOOD SPECIMENOrdering Facility: [facility] Address: [address] [place] [address] Performed By: #### 2 951-2 ####[facility] LABORATORYCLIA [id number] [place] [address] [place] Sodium [Moles/Vol] 131 mmol/L Low 136-144 [facility] Comment on above: Order Comment: Speci men Type: BLOOD SPECIMENOrdering Facility: [facility] Address: [address] [place] [address] Performed By: #### 2 951-2, 70931-8, 40317-2 ####[facility] LABORATORYCLIA [id number] [place] [address] [place] THERAPY NTon 12-05-2024 THERAPY NT Normal [facility] XR ABDOMEN 1V SUPINEon 12-05 XR ABDOMEN 1V SUPINE Normal [facility] CASE MANAGEMon 12-04-2024 CASE MANAGEM Normal [facility] CBC W Auto Differential pane l (Bld)on 12-04-2024 Basophils (Bld) [#/Vol] 0.05 10*3/uL Normal <0.11 [facility] Comment on above: Order Comment: Speci men Type: BLOOD SPECIMENOrdering Facility: [facility] Address: [address] [place] [address] Performed By: #### 5 7021-8 ####[facility]ORATORYCLIA [id number] [place] [address] [place] Basophils/100 WBC (Bld) 0.2 % Normal [facility] Comment on above: Order Comment: Speci men Type: BLOOD SPECIMENOrdering Facility: [facility] Address: [address] [place] [address] Performed By: #### 5 7021-8 ####[facility]ORY[facility] [id number] [place] [address] [place] Differential cell count method Nom (Bld) Auto Normal [facility] Comment on above: Order Comment: Speci men Type: BLOOD SPECIMENOrdering Facility: [facility] Address: [address] [place] [address] Performed By: #### 5 7021-8 ####[facility] LABORATORYCLIA [id number] [place] [id number] [place] Eosinophils (Bld) [#/Vol] 10*3/uL Normal <0.46 [facility] Comment on above: Order Comment: Speci men Type: BLOOD SPECIMENOrdering Facility: [facility] Address: [address] [place] [address] Performed By: #### 5 7021-8 ####[facility] LABORATORYCLIA [id number] [place] [address] [place] Eosinophils/100 WBC (Bld) 0.1 % Normal [facility] Comment on above: Order Comment: Speci men Type: BLOOD SPECIMENOrdering Facility: [facility] Address: [facility] [place] [address] Performed By: #### 5 7021-8 ####[facility] LABORATORYCLIA [id number] [place] [address] [place] Erythrocyte distribution width (RBC) [Ratio] 15.8 % High 11.5-15.0 [facility] Comment on above: Order Comment: Speci men Type: BLOOD SPECIMENOrdering Facility: [facility] Address: [address] [place] [address] Performed By: #### 5 7021-8 ####[facility] LABORATORYCLIA [id number] [place] [address] [place] Hematocrit (Bld) [Volume fraction] 25.9 % Low 36.0-46.0 [facility] Comment on above: Order Comment: Speci men Type: BLOOD SPECIMENOrdering Facility: [facility] Address: [address] [place] [address] Performed By: #### 5 7021-8 ####[facility] LABORATORYCLIA [id number] [place] [address] [place] Hemoglobin (Bld) [Mass/Vol] 8.5 g/dL Low 11.5-15.5 [facility] Comment on above: Order Comment: Speci men Type: BLOOD SPECIMENOrdering Facility: [facility] Address: [address] [place] [address] Performed By: #### 5 7021-8 ####[facility] LABORATORYCLIA [id number] [place] [address] [place] Immature granulocytes (Bld) [#/Vol] 0.27 10*3/uL High <0.10 [facility] Comment on above: Order Comment: Speci men Type: BLOOD SPECIMENOrdering Facility: [facility] Address: [address] [place] [address] Performed By: #### 5 7021-8 ####[facility] LABORATORYCLIA [id number] [address] [place] Immature granulocytes/100 WBC (Bld) 1.3 % Normal [facility] Comment on above: Order Comment: Speci men Type: BLOOD SPECIMENOrdering Facility: [facility] Address: [address] [place] [address] Performed By: #### 5 7021-8 ####[facility] LABORATORYCLIA [id number] [address] Lymphocytes (Bld) [#/Vol] 0.64 10*3/uL Low 1.00-4.00 [facility] Comment on above: Order Comment: Speci men Type: BLOOD SPECIMENOrdering Facility: [facility] Address: [address] [place] [address] Performed By: #### 5 7021-8 ####[facility] LABORATORYCLIA [id number] [address] Lymphocytes/100 WBC (Bld) 3.1 % Normal [facility] Comment on above: Order Comment: Speci men Type: BLOOD SPECIMENOrdering Facility: [facility] Address: [address] [place] [address] Performed By: #### 5 7021-8 ####[facility] LABORATORYCLIA [id number] [address] [place] MCH (RBC) [Entitic mass] 28.1 pg Normal 26.0-34.0 [facility] Comment on above: Order Comment: Speci men Type: BLOOD SPECIMENOrdering Facility: [facility] Address: [address] [place] [address] Performed By: #### 5 7021-8 ####[facility] LABORATORYCLIA [id number] [address] MCHC (RBC) [Mass/Vol] 32.8 g/dL Normal 30.5-36.0 [facility] Comment on above: Order Comment: Speci men Type: BLOOD SPECIMENOrdering Facility: [facility] Address: [address] [place] [address] Performed By: #### 5 7021-8 ####[facility] LABORATORYCLIA [id number] [place] [address] [place] MCV (RBC) [Entitic vol] 85.8 fL Normal 80.0-100.0 [facility] Comment on above: Order Comment: Speci men Type: BLOOD SPECIMENOrdering Facility: [facility] Address: [address] [place] [address] Performed By: #### 5 7021-8 ####[facility] LABORATORYCLIA [id number] [place] [address] [place] Monocytes (Bld) [#/Vol] 1.09 10*3/uL High <0.87 [facility] Comment on above: Order Comment: Speci men Type: BLOOD SPECIMENOrdering Facility: [facility] Address: [address] [place] [address] Performed By: #### 5 7021-8 ####[facility] LABORATORYCLIA [id number] [address] [place] Monocytes/100 WBC (Bld) 5.3 % Normal [facility] Comment on above: Order Comment: Speci men Type: BLOOD SPECIMENOrdering Facility: [facility] Address: [address] [place] [address] Performed By: #### 5 7021-8 ####[facility] LABORATORYCLIA [id number] [place] [address] [place] Neutrophils (Bld) [#/Vol] 18.59 10*3/uL High 1.45-7.50 [facility] Comment on above: Order Comment: Speci men Type: BLOOD SPECIMENOrdering Facility: [facility] Address: [address] [place] [address] Performed By: #### 5 7021-8 ####[facility] LABORATORYCLIA [id number] [place] [address] [place] Neutrophils/100 WBC (Bld) 90.0 % Normal [facility] Comment on above: Order Comment: Speci men Type: BLOOD SPECIMENOrdering Facility: [facility] Address: [address] [place] [address] Performed By: #### 5 7021-8 ####[facility] LABORATORYCLIA [id number] [place] [address] [place] Nucleated RBC (Bld) [#/Vol] 10*3/uL Normal <0.01 [facility] Comment on above: Order Comment: Speci men Type: BLOOD SPECIMENOrdering Facility: [facility] Address: [address] [place] [address] Performed By: #### 5 7021-8 ####[facility] LABORATORYCLIA [id number] [place] [address] [place] Nucleated RBC/100 WBC (Bld) [Ratio] 0.0 /100 WBC Normal [facility] Comment on above: Order Comment: Speci men Type: BLOOD SPECIMENOrdering Facility: [facility] Address: [address] [place] [address] Performed By: #### 5 7021-8 ####[facility] LABORATORYCLIA [id number] [place] [address] [place] Platelet mean volume (Bld) [Entitic vol] 8.7 fL Low 9.0-12.7 [facility] Comment on above: Order Comment: Speci men Type: BLOOD SPECIMENOrdering Facility: [facility] Address: [address] [place] [address] Performed By: #### 5 7021-8 ####[facility] LABORATORYCLIA [id number] [place] [address] [place] Platelets (Bld) [#/Vol] 518 10*3/uL High 150-400 [facility] Comment on above: Order Comment: Speci men Type: BLOOD SPECIMENOrdering Facility: [facility] Address: [address] [place] [address] Performed By: #### 5 7021-8 ####[facility] LABORATORYCLIA [id number] [place] [address] [place] RBC (Bld) [#/Vol] 3.02 10*6/uL Low 3.90-5.[address] [facility] Comment on above: Order Comment: Speci men Type: BLOOD SPECIMENOrdering Facility: [facility] Address: [facility] [place] [address] Performed By: #### 5 7021-8 ####[facility]ORATORYCLIA [id number] [place] [address] [place] WBC (Bld) [#/Vol] 20.66 10*3/uL High 3.70-11.00 [facility] Comment on above: Order Comment: Speci men Type: BLOOD SPECIMENOrdering Facility: [facility] Address: [address] [place] [address] Performed By: #### 5 7021-8 ####[facility]ORATORYCLIA [id number] [place] [address] [place] CBC W Ordered Manual Differe ntial panel (Bld)on 12-04-2024 Basophils (Bld) [#/Vol] 0.03 10*3/uL Normal <0.11 [facility] Comment on above: Order Comment: Speci men Type: BLOOD SPECIMENOrdering Facility: [facility] Address: [address] [place] [address] Performed By: #### S TFREV ####[facility] LABCLIA [id number] [place] [address] [place]#### 63990-6 ####[facility]ORATORYCLIA [id number] [address] [place] [facility] Basophils/100 WBC (Bld) 0.2 % Normal [facility] Comment on above: Order Comment: Speci men Type: BLOOD SPECIMENOrdering Facility: [facility] Address: [address] [place] [address] Performed By: #### S TFREV ####[facility] LABCLIA [id number] [place] [address] [place]#### 94871-2 ####[facility]ORATORYCLIA [id number] [address] STATES OF [facility] Differential cell count method Nom (Bld) Auto Normal [facility] Comment on above: Order Comment: Speci men Type: BLOOD SPECIMENOrdering Facility: [facility] Address: [address] [place] [address] Performed By: #### S TFREV ####[facility] LABCLIA [id number] [place] [address] [place]#### 44279-7 ####[facility] LABORATORYCLIA [id number] [place] [address] [place] Eosinophils (Bld) [#/Vol] 10*3/uL Normal <0.46 [facility] Comment on above: Order Comment: Speci men Type: BLOOD SPECIMENOrdering Facility: [facility] Address: [address] [place] [address] Performed By: #### S TFREV ####[facility] LABCLIA [id number] [place] [address] [place]#### 63291-4 ####[facility] LABORATORYCLIA [id number] [place] [address] [place] Eosinophils/100 WBC (Bld) 0.1 % Normal [facility] Comment on above: Order Comment: Speci men Type: BLOOD SPECIMENOrdering Facility: [facility] Address: [address] [place] [address] Performed By: #### S TFREV ####[facility] LABCLIA [id number] [place] [address] [place]#### 21208-1 ####[facility] LABORATORYCLIA [id number] [place] [address] [place] Erythrocyte distribution width (RBC) [Ratio] 15.9 % High 11.5-15.0 [facility] Comment on above: Order Comment: Speci men Type: BLOOD SPECIMENOrdering Facility: [facility] Address: [facility] [place] [address] Performed By: #### S TFREV ####[facility] LABCLIA [id number] [place] [address] [place]#### 01190-8 ####[facility] LABORATORYCLIA [id number] [address] [place] Hematocrit (Bld) [Volume fraction] 26.2 % Low 36.0-46.0 [facility] Comment on above: Order Comment: Speci men Type: BLOOD SPECIMENOrdering Facility: [facility] Address: [address] [place] [address] Performed By: #### S TFREV ####[facility] LABCLIA [id number] [place] [address] [place]#### 97324-9 ####[facility] LABORATORYCLIA [id number] [place] [address] [place] Hemoglobin (Bld) [Mass/Vol] 8.7 g/dL Low 11.5-15.5 [facility] Comment on above: Order Comment: Speci men Type: BLOOD SPECIMENOrdering Facility: [facility] Address: [address] [place] [address] Performed By: #### S TFREV ####[facility] LABCLIA [id number] [address] [place]#### 21967-1 ####[facility] LABORATORYCLIA [id number] [address] [place] Immature granulocytes (Bld) [#/Vol] 0.20 10*3/uL High <0.10 [facility] Comment on above: Order Comment: Speci men Type: BLOOD SPECIMENOrdering Facility: [facility] Address: [address] [place] [address] Performed By: #### S TFREV ####[facility] LABCLIA [id number] [place] [address] [place]#### 17463-0 ####[facility] LABORATORYCLIA [id number] [address] [place] Immature granulocytes/100 WBC (Bld) 1.3 % Normal [facility] Comment on above: Order Comment: Speci men Type: BLOOD SPECIMENOrdering Facility: [facility] Address: [address] [place] [address] Performed By: #### S TFREV ####[facility] LABCLIA [id number] [place] [address] [place]#### 07393-5 ####[facility] LABORATORYCLIA [id number] [address] [place] Lymphocytes (Bld) [#/Vol] 0.56 10*3/uL Low 1.00-4.00 [facility] Comment on above: Order Comment: Speci men Type: BLOOD SPECIMENOrdering Facility: [facility] Address: [address] [place] [address] Performed By: #### S TFREV ####[facility] LABCLIA [id number] [address] [place]#### 14507-0 ####[facility] LABORATORYCLIA [id number] [address] [place] Lymphocytes/100 WBC (Bld) 3.5 % Normal [facility] Comment on above: Order Comment: Speci men Type: BLOOD SPECIMENOrdering Facility: [facility] Address: [address] [place] [address] Performed By: #### S TFREV ####[facility] LABCLIA [id number] [place] [address] [place]#### 59129-2 ####[facility] LABORATORYCLIA [id number] [place] [address] [place] MCH (RBC) [Entitic mass] 28.3 pg Normal 26.0-34.0 [facility] Comment on above: Order Comment: Speci men Type: BLOOD SPECIMENOrdering Facility: [facility] Address: [address] [place] [address] Performed By: #### S TFREV ####[facility] LABCLIA [id number] [place] [address] [place]#### 46226-2 ####[facility] LABORATORYCLIA [id number] [place] [address] [place] MCHC (RBC) [Mass/Vol] 33.2 g/dL Normal 30.5-36.0 [facility] Comment on above: Order Comment: Speci men Type: BLOOD SPECIMENOrdering Facility: [facility] Address: [address] [place] [address] Performed By: #### S TFREV ####[facility] LABCLIA [id number] [address] [place]#### 00167-8 ####[facility] LABORATORYCLIA [id number] [address] [place] MCV (RBC) [Entitic vol] 85.3 fL Normal 80.0-100.0 [facility] Comment on above: Order Comment: Speci men Type: BLOOD SPECIMENOrdering Facility: [facility] Address: [address] [place] [address] Performed By: #### S TFREV ####[facility] LABCLIA [id number] [address] [place]#### 54531-1 ####[facility] LABORATORYCLIA [id number] [address] [place] Monocytes (Bld) [#/Vol] 0.74 10*3/uL Normal <0.87 [facility] Comment on above: Order Comment: Speci men Type: BLOOD SPECIMENOrdering Facility: [facility] Address: [address] [place] [address] Performed By: #### S TFREV ####[facility] LABCLIA [id number] [place] [address] [place] [facility] [place]#### 23721-2 ####[facility] LABORATORYCLIA [id number] [address] Monocytes/100 WBC (Bld) 4.6 % Normal [facility] Comment on above: Order Comment: Speci men Type: BLOOD SPECIMENOrdering Facility: [facility] Address: [address] [place] [address] Performed By: #### S TFREV ####[facility] LABCLIA [id number] [place] [address] [place]#### 87765-2 ####[facility] LABORATORYCLIA [id number] [place] [address] [place] Neutrophils (Bld) [#/Vol] 14.38 10*3/uL High 1.45-7.50 [facility] Comment on above: Order Comment: Speci men Type: BLOOD SPECIMENOrdering Facility: [facility] Address: [address] [place] [address] Performed By: #### S TFREV ####[facility] LABCLIA [id number] [place] [address] [place]#### 89357-6 ####[facility] LABORATORYCLIA [id number] [place] [address] [place] Neutrophils/100 WBC (Bld) 90.3 % Normal [facility] Comment on above: Order Comment: Speci men Type: BLOOD SPECIMENOrdering Facility: [facility] Address: [address] [place] [address] Performed By: #### S TFREV ####[facility] LABCLIA [id number] [place] [address] [place]#### 00713-8 ####[facility] LABORATORYCLIA [id number] [place] [address] [place] Nucleated RBC (Bld) [#/Vol] 10*3/uL Normal <0.01 [facility] Comment on above: Order Comment: Speci men Type: BLOOD SPECIMENOrdering Facility: [facility] Address: [address] [place] [address] Performed By: #### S TFREV ####[facility] LABCLIA [id number] [facility] [facility] [address]#### 67389-8 ####[facility] LABORATORYCLIA [id number] [address] Nucleated RBC/100 WBC (Bld) [Ratio] 0.0 /100 WBC Normal [facility] Comment on above: Order Comment: Speci men Type: BLOOD SPECIMENOrdering Facility: [facility] Address: [address] [place] [address] Performed By: #### S TFREV ####[facility] LABCLIA [id number] [address] [place]#### 85619-0 ####[facility] LABORATORYCLIA [id number] [address] [place] [facility] Platelet mean volume (Bld) [Entitic vol] 8.8 fL Low 9.0-12.7 [facility] Comment on above: Order Comment: Speci men Type: BLOOD SPECIMENOrdering Facility: [facility] Address: [address] [place] [address] Performed By: #### S TFREV ####[facility] LABCLIA [id number] [address] [place]#### 71840-8 ####[facility]ORATORYCLIA [id number] [address] [place] Platelets (Bld) [#/Vol] 512 10*3/uL High 150-400 [facility] Comment on above: Order Comment: Speci men Type: BLOOD SPECIMENOrdering Facility: [facility] Address: [address] [place] [address] Performed By: #### S TFREV ####[facility] LABCLIA [id number] [place] [address] [place] [facility] [place]#### 99169-5 ####[facility] LABORATORYCLIA [id number] [address] [place] RBC (Bld) [#/Vol] 3.07 10*6/uL Low 3.90-5.[address] [facility] Comment on above: Order Comment: Speci men Type: BLOOD SPECIMENOrdering Facility: [facility] Address: [address] [place] [address] Performed By: #### S TFREV ####[facility] LABCLIA [id number] [place] [address] [place]#### 99234-0 ####[facility]ORATORYCLIA [id number] [place] [address] [place] WBC (Bld) [#/Vol] 15.92 10*3/uL High 3.70-11.00 [facility] Comment on above: Order Comment: Speci men Type: BLOOD SPECIMENOrdering Facility: [facility] Address: [address] [place] [address] Performed By: #### S TFREV ####[facility] LABCLIA [id number] [place] [address] [place]#### 80714-7 ####[facility]ATORYCLIA [id number] [place] [address] [place] CONSULTon 12-04-2024 CONSULT Normal [facility] CONSULT PROGon 12-04-2024 CONSULT PROG Normal [facility] CONSULT PROG Normal [facility] metabolic 2000 panelon 12-04-2024 Albumin [Mass/Vol] 2.5 g/dL Low 3.9-4.9 [facility] Comment on above: Order Comment: Speci men Type: BLOOD SPECIMENOrdering Facility: [facility] Address: [address] [place] [address] Performed By: #### 2 4323-8, 17253-3, 2951-2 ####[facility]ATORYCLIA [id number] [place] [address] [place] ALP [Catalytic activity/Vol] 112 U/L Normal 34-123 [facility] Comment on above: Order Comment: Speci men Type: BLOOD SPECIMENOrdering Facility: [facility] Address: [address] [place] [address] Performed By: #### 2 4323-8, 61187-0, 2950-2 ####[facility]ORATORYCLIA [id number] [place] [address] [place] ALT [Catalytic activity/Vol] U/L Low 7-38 [facility] Comment on above: Order Comment: Speci men Type: BLOOD SPECIMENOrdering Facility: [facility] Address: [address] [place] [id number] Performed By: #### 2 4323-8, 82161-4, 2950-2 ####[facility]ATORYCLIA [id number] [place] [address] [place] Anion gap [Moles/Vol] 10 mmol/L Normal 8-15 [facility] Comment on above: Order Comment: Speci men Type: BLOOD SPECIMENOrdering Facility: [facility] Address: [address] [place] [address] Performed By: #### 2 4322-8, , 2950-2 ####[facility]ORATORYCLIA [id number] [place] [address] [place] AST [Catalytic activity/Vol] 31 U/L Normal 13-35 [facility] Comment on above: Order Comment: Speci men Type: BLOOD SPECIMENOrdering Facility: [facility] Address: [address] [place] [id number] Performed By: #### 2 4323-8, , 2950-2 ####[facility]ORATORYCLIA [id number] [place] [id number] [place] Bilirubin [Mass/Vol] mg/dL Low 0.2-1.3 [facility] Comment on above: Order Comment: Speci men Type: BLOOD SPECIMENOrdering Facility: [facility] Address: [address] [place] [id number] Performed By: #### 2 4323-8, 82192-1, 2950-2 ####[facility]ORATORYCLIA [id number] [place] [address] [place] Calcium [Mass/Vol] 9.7 mg/dL Normal 8.5-10.2 [facility] Comment on above: Order Comment: Speci men Type: BLOOD SPECIMENOrdering Facility: [facility] Address: [address] [place] [address] Performed By: #### 2 4323-8, 87959-9, 2950-2 ####[facility]ORATORYCLIA [id number] [place] [address] [place] Chloride [Moles/Vol] 95 mmol/L Low 98-107 [facility] Comment on above: Order Comment: Speci men Type: BLOOD SPECIMENOrdering Facility: [facility] Address: [address] [place] [address] Performed By: #### 2 4323-8, , 2 ####[facility]ATORYCLIA [id number] [place] [address] [place] CO2 [Moles/Vol] 27 mmol/L Normal 22-30 [facility] Comment on above: Order Comment: Speci men Type: BLOOD SPECIMENOrdering Facility: [facility] Address: [address] [place] [address] Performed By: #### 2 4323-8, , 2 ####[facility]ATORYCLIA [id number] [place] [address] [place] Creatinine [Mass/Vol] 0.84 mg/dL Normal 0.58-0.96 [facility] Comment on above: Order Comment: Speci men Type: BLOOD SPECIMENOrdering Facility: [facility] Address: [address] [place] [address] Performed By: #### 2 4323-8, , 2 ####[facility]ORATORYCLIA [id number] [place] [id number] [facility] [place] Creatinine and Glomerular filtration rate.predicted panel (S/P/Bld) 67 mL/min/1.73m??? Normal >=60 [facility] Comment on above: Order Comment: Speci men Type: BLOOD SPECIMENOrdering Facility: [facility] Address: [address] [place] [address] Result Comment: Hilda mated Glomerular Filtration Rate [...] actual GFR. Performed By: #### 2 4323-8, , 2950- ####[facility] LABORATORYCLIA [id number] [place] [address] [place] Glucose [Mass/Vol] 60 mg/dL Low 74-99 [facility] Comment on above: Order Comment: Fan meade Type: BLOOD SPECIMENOrdering Facility: [facility] Address: [address] [place] [address] Result Comment: The [place] [employer] (ADA) provides guidance for cutoff [...] Standards of Medical Care in Diabetes 2016, [place] Diabetes Association. Diabetes Care. 2016.39(Suppl 1). Performed By: #### 2 4323-8, , 2950-12 ####[facility]ATORYCLIA [id number] [place] [address] [place] Potassium [Moles/Vol] 4.6 mmol/L Normal 3.7-5.1 [facility] Comment on above: Order Comment: Fan meade Type: BLOOD SPECIMENOrdering Facility: [facility] Address: [address] [place] [address] Performed By: #### 2 4323-8, , 2950-2 ####[facility]ATORYCLIA [id number] [place] [address] [place] Protein [Mass/Vol] 5.9 g/dL Low 6.3-8.0 [facility] Comment on above: Order Comment: Speci men Type: BLOOD SPECIMENOrdering Facility: [facility] Address: [address] [place] [address] [place] [address] Performed By: #### 2 4323-8, 45640-3, 2950-2 ####[facility]ATORYCLIA [id number] [place] [address] [place] Urea nitrogen [Mass/Vol] 37 mg/dL High 06-03 [facility] Comment on above: Order Comment: Speci men Type: BLOOD SPECIMENOrdering Facility: [facility] Address: [address] [place] [address] Performed By: #### 2 4323-8, , 2950-12 ####[facility]ATORYCLIA [id number] [place] [address] [place] Creatinine Unsp time (U) [Ma ss/Vol]on 12-04-2024 Creatinine (U) [Mass/Vol] 41.7 mg/dL Normal 20.0-300.0 [facility] Comment on above: Order Comment: Speci men Type: URINE SPECIMENOrdering Facility: [facility] Address: [address] [place] [address] Performed By: #### 3 5678-2, 65813-9, 12993-0 ####[facility] LABCLIA [id number] [facility] [id number] [address] [place] Magnesium SerPl-mCncon 12-04 Magnesium [Mass/Vol] 2.0 mg/dL Normal 1.7-2.3 [facility] Comment on above: Order Comment: Speci men Type: BLOOD SPECIMENOrdering Facility: [facility] Address: [address] [place] [address] [place] [address] Performed By: #### 2 4323-8, 63791-5, 2 ####[facility]ATORYCLIA [id number] [place] [address] [place] NUTRITIONon 12-04-2024 NUTRITION Normal [facility] Osmolality Uron 12-04-2024 Osmolality (U) [Osmolality] 412 mosm/kg Normal 50-1200 [facility] Comment on above: Order Comment: Speci men Type: URINE SPECIMENOrdering Facility: [facility] Address: [address] [place] [address] Performed By: #### 2 695-5 ####[facility] LABCLIA [id number] [address] PATHOLOGIST INTERPRETATION C BC/DIFFon 12-04-2024 [employer]door Adventure [employer] review Mckay (Unsp spec) [Interp] No review performed. Normal [facility] Comment on above: Order Comment: Speci men Type: BLOOD SPECIMENOrdering Facility: [facility] Address: [address] [place] [address] Performed By: #### S TFREV ####[facility] LABCLIA [id number] [address] [place]#### 36572-0 ####[facility]ORYCLIA [id number] [address] [place] STAFF REVIEW, CBCDIF Normal [facility] Comment on above: Order Comment: Speci men Type: BLOOD SPECIMENOrdering Facility: [facility] Address: [address] [place] [address] Performed By: #### S TFREV ####[facility] LABCLIA [id number] [address] [place]#### 57529-0 ####[facility]ATORYCLIA [id number] [place] [address] [place] PT panel Coag (PPP)on 2024 INR Coag (PPP) [Relative time] 1.0 {INR} Normal 0.9-1.3 [facility] Comment on above: Order Comment: Speci men Type: BLOOD SPECIMENOrdering Facility: [facility] Address: [address] [place] [address] Result Comment: Kendra min K Antagonist (VKA) Therapeutic Range: INR 2 to 3 (Target INR of 2.5)Note: For patients treated with VKA drugs, such as warfarin, the [place] [employer] 2012 Guideline recommends [...] al. Chest 2012, 141:7S-47SNishimura RA, et al. [facility] 2017, 70: 252-289 Performed By: #### 3 4528-0 ####[facility]ORYCLIA [id number] [place] [address] [place] PT Coag (PPP) [Time] 10.6 s Normal 9.7-13.0 [facility] Comment on above: Order Comment: Speci men Type: BLOOD SPECIMENOrdering Facility: [facility] Address: [address] [place] [address] Performed By: #### 3 4528-0 ####[facility]ATORYCLIA [id number] [place] [address] [place] Potassium ?Tm Ur-sCncon 11-15 Potassium Unsp time (U) [Moles/Vol] 41.7 mmol/L Normal 10.0-160.0 [facility] Comment on above: Order Comment: Speci men Type: URINE SPECIMENOrdering Facility: [facility] Address: [address] [place] [address] Performed By: #### 3 5678-2, 38507-8, 18659-6 ####[facility] LABCLIA [id number] [facility] [id number] [address] [place] Sodium ?Tm Ur-sCncon 025 Sodium Unsp time (U) [Moles/Vol] <20 Normal 14-216 [facility] Comment on above: Order Comment: Speci men Type: URINE SPECIMENOrdering Facility: [facility] Address: [address] [place] [address] Performed By: #### 3 5678-2, 64767-0, 85942-7 ####[facility] LABCLIA [id number] [facility] [id number] [place] [address] [place] Sodium SerPl-sCncon 12-04-19 25 Sodium [Moles/Vol] 128 mmol/L Low 136-144 [facility] Comment on above: Order Comment: Speci men Type: BLOOD SPECIMENOrdering Facility: [facility] Address: [address] [place] [address] Performed By: #### 2 951-2 ####[facility]ORYCLIA [id number] [place] [address] [place] Sodium [Moles/Vol] 133 mmol/L Low 136-144 [facility] Comment on above: Order Comment: Speci men Type: BLOOD SPECIMENOrdering Facility: [facility] Address: [address] [place] [address] Performed By: #### 2 951-2 ####[facility]ATORYCLIA [id number] [place] [address] [place] Sodium [Moles/Vol] 130 mmol/L Low 136-144 [facility] Comment on above: Order Comment: Speci men Type: BLOOD SPECIMENOrdering Facility: [facility] Address: [address] [place] [address] Performed By: #### 2 951-2 ####[facility]ORYCLIA [id number] [place] [address] [place] Sodium [Moles/Vol] 132 mmol/L Low 136-144 [facility] Comment on above: Order Comment: Speci men Type: BLOOD SPECIMENOrdering Facility: [facility] Address: [address] [place] [address] Performed By: #### 2 4323-8, 28837-3, 2951-2 ####[facility]ATORYCLIA [id number] [place] [address] [place] Sodium [Moles/Vol] 132 mmol/L Low 136-144 [facility] Comment on above: Order Comment: Fan meade Type: BLOOD SPECIMENOrdering Facility: [facility] Address: [address] [place] [address] Performed By: #### 2 951-2 ####[facility]ATORYCLIA [id number] [place] [address] [place] THERAPY NTon 12-04-2024 THERAPY NT Normal [facility] ALLIED HEALTHon 12-03-2024 ALLIED HEALTH [facility] RUBEN BY IFA SCREENon 12-03-19 Nuclear Ab pattern (S) [Interp] Nuclear homogeneous Normal [facility] Comment on above: Order Comment: Fan meade Type: BLOOD SPECIMENOrdering Facility: [facility] Address: [address] [place] [address] Performed By: #### A NAIFS ####[facility] LABCLIA [id number] [place] [address] [place] Nuclear Ab Ql (S) Positive Abnormal Negative [facility] Comment on above: Order Comment: Fan meade Type: BLOOD SPECIMENOrdering Facility: [facility] Address: [address] [place] [address] Result Comment: Anti -nuclear antibody test is used as an aid in diagnosis of systemic autoimmune diseases. Where positive and clinically warranted, follow-up using disease-specific testing is recommended. Low positive titers are not uncommon with advanced age, certain chronic infections, and malignancies among others.Test methodology: Indirect fluorescence immunoassay (IFA) using HEp-2 cells.1:160 Performed By: #### A NAIFS ####[facility] LABCLIA [id number] [place] [address] [place] CASE MANAGEMon 12-03-2024 CASE MANAGEM [facility] CBC W Auto Differential pane l (Bld)on 12-03-2024 Basophils (Bld) [#/Vol] 0.06 10*3/uL Normal <0.11 [facility] Comment on above: Order Comment: Fan meade Type: BLOOD SPECIMENOrdering Facility: [facility] Address: [address] [place] [address] Performed By: #### 5 7021-8 ####[facility]ATORYCLIA [id number] [place] [address] [place] Basophils/100 WBC (Bld) 0.3 % Normal [facility] Comment on above: Order Comment: Speci men Type: BLOOD SPECIMENOrdering Facility: [facility] Address: [address] [place] [address] Performed By: #### 5 7021-8 ####[facility]ATORYCLIA [id number] [place] [address] [place] Differential cell count method Nom (Bld) Auto Normal [facility] Comment on above: Order Comment: Speci men Type: BLOOD SPECIMENOrdering Facility: [facility] Address: [address] [place] [address] Performed By: #### 5 7021-8 ####[facility]ATORYCLIA [id number] [place] [address] [place] Eosinophils (Bld) [#/Vol] 0.18 10*3/uL Normal <0.46 [facility] Comment on above: Order Comment: Speci men Type: BLOOD SPECIMENOrdering Facility: [facility] Address: [address] [place] [address] Performed By: #### 5 7021-8 ####[facility]ORYCLIA [id number] [address] [place] Eosinophils/100 WBC (Bld) 0.9 % Normal [facility] Comment on above: Order Comment: Speci men Type: BLOOD SPECIMENOrdering Facility: [facility] Address: [address] [place] [address] Performed By: #### 5 7021-8 ####[facility]ORYCLIA [id number] [place] [address] [place] Erythrocyte distribution width (RBC) [Ratio] 15.6 % High 11.5-15.0 [facility] Comment on above: Order Comment: Speci men Type: BLOOD SPECIMENOrdering Facility: [facility] Address: [address] [place] [address] Performed By: #### 5 7021-8 ####[facility]ORYCLIA [id number] [address] [place] Hematocrit (Bld) [Volume fraction] 26.0 % Low 36.0-46.0 [facility] Comment on above: Order Comment: Speci men Type: BLOOD SPECIMENOrdering Facility: [facility] Address: [address] [place] [address] Performed By: #### 5 7021-8 ####[facility]ORYCLIA [id number] [place] [address] [place] Hemoglobin (Bld) [Mass/Vol] 8.5 g/dL Low 11.5-15.5 [facility] Comment on above: Order Comment: Speci men Type: BLOOD SPECIMENOrdering Facility: [facility] Address: [address] [place] [address] Performed By: #### 5 7021-8 ####[facility]ORYCLIA [id number] [place] [address] [place] Immature granulocytes (Bld) [#/Vol] 0.29 10*3/uL High <0.10 [facility] Comment on above: Order Comment: Speci men Type: BLOOD SPECIMENOrdering Facility: [facility] Address: [address] [place] [address] Performed By: #### 5 7021-8 ####[facility]ORYCLIA [id number] [address] [place] Immature granulocytes/100 WBC (Bld) 1.5 % Normal [facility] Comment on above: Order Comment: Speci men Type: BLOOD SPECIMENOrdering Facility: [facility] Address: [address] [place] [address] Performed By: #### 5 7021-8 ####[facility]ORYCLIA [id number] [place] [address] [facility] [place] Lymphocytes (Bld) [#/Vol] 0.75 10*3/uL Low 1.00-4.00 [facility] Comment on above: Order Comment: Speci men Type: BLOOD SPECIMENOrdering Facility: [facility] Address: [address] [place] [address] Performed By: #### 5 7021-8 ####[facility]ORYCLIA [id number] [address] Lymphocytes/100 WBC (Bld) 3.8 % Normal [facility] Comment on above: Order Comment: Speci men Type: BLOOD SPECIMENOrdering Facility: [facility] Address: [address] [place] [address] Performed By: #### 5 7021-8 ####[facility]ORYCLIA [id number] [address] MCH (RBC) [Entitic mass] 28.5 pg Normal 26.0-34.0 [facility] Comment on above: Order Comment: Speci men Type: BLOOD SPECIMENOrdering Facility: [facility] Address: [address] [place] [address] Performed By: #### 5 7021-8 ####[facility]ORYCLIA [id number] [address] MCHC (RBC) [Mass/Vol] 32.7 g/dL Normal 30.5-36.0 [facility] Comment on above: Order Comment: Speci men Type: BLOOD SPECIMENOrdering Facility: [facility] Address: [address] [place] [address] Performed By: #### 5 7021-8 ####[facility]ORYCLIA [id number] [address] MCV (RBC) [Entitic vol] 87.2 fL Normal 80.0-100.0 [facility] Comment on above: Order Comment: Speci men Type: BLOOD SPECIMENOrdering Facility: [facility] Address: [address] [place] [address] Performed By: #### 5 7021-8 ####[facility]ORYCLIA [id number] [address] Monocytes (Bld) [#/Vol] 0.93 10*3/uL High <0.87 [facility] Comment on above: Order Comment: Speci men Type: BLOOD SPECIMENOrdering Facility: [facility] Address: [address] [place] [address] Performed By: #### 5 7021-8 ####[facility]ATORYCLIA [id number] [place] [address] [place] Monocytes/100 WBC (Bld) 4.7 % Normal [facility] Comment on above: Order Comment: Speci men Type: BLOOD SPECIMENOrdering Facility: [facility] Address: [address] [place] [address] Performed By: #### 5 7021-8 ####[facility]ATORYCLIA [id number] [place] [address] [place] Neutrophils (Bld) [#/Vol] 17.78 10*3/uL High 1.45-7.50 [facility] Comment on above: Order Comment: Speci men Type: BLOOD SPECIMENOrdering Facility: [facility] Address: [address] [place] [address] Performed By: #### 5 7021-8 ####[facility]ATORYCLIA [id number] [place] [address] [place] Neutrophils/100 WBC (Bld) 88.8 % Normal [facility] Comment on above: Order Comment: Speci men Type: BLOOD SPECIMENOrdering Facility: [facility] Address: [address] [place] [address] Performed By: #### 5 7021-8 ####[facility]ATORYCLIA [id number] [place] [address] [place] Nucleated RBC (Bld) [#/Vol] 10*3/uL Normal <0.01 [facility] Comment on above: Order Comment: Speci men Type: BLOOD SPECIMENOrdering Facility: [facility] Address: [address] [place] [address] Performed By: #### 5 7021-8 ####[facility]ATORYCLIA [id number] [place] [address] [place] Nucleated RBC/100 WBC (Bld) [Ratio] 0.0 /100 WBC Normal [facility] Comment on above: Order Comment: Speci men Type: BLOOD SPECIMENOrdering Facility: [facility] Address: [address] [place] [address] Performed By: #### 5 7021-8 ####[facility]ATORYCLIA [id number] [place] [id number] [place] Platelet mean volume (Bld) [Entitic vol] 8.6 fL Low 9.0-12.7 [facility] Comment on above: Order Comment: Speci men Type: BLOOD SPECIMENOrdering Facility: [facility] Address: [address] [place] [address] Performed By: #### 5 7021-8 ####[facility]ATORYCLIA [id number] [place] [id number] [place] Platelets (Bld) [#/Vol] 442 10*3/uL High 150-400 [facility] Comment on above: Order Comment: Speci men Type: BLOOD SPECIMENOrdering Facility: [facility] Address: [address] [place] [address] Performed By: #### 5 7021-8 ####[facility]ATORYCLIA [id number] [place] [address] [place] RBC (Bld) [#/Vol] 2.98 10*6/uL Low 3.90-5.[address] [facility] Comment on above: Order Comment: Speci men Type: BLOOD SPECIMENOrdering Facility: [facility] Address: [facility] [place] [address] Performed By: #### 5 7021-8 ####[facility]ATORYCLIA [id number] [place] [id number] [place] WBC (Bld) [#/Vol] 19.99 10*3/uL High 3.70-11.00 [facility] Comment on above: Order Comment: Speci men Type: BLOOD SPECIMENOrdering Facility: [facility] Address: [facility] [place] [address] Performed By: #### 5 7021-8 ####[facility]ORATORYCLIA [id number] [place] [address] [place] CONSULTon 12-03-2024 CONSULT Normal [facility] CONSULT Normal [facility] CONSULT PROGon 12-03-2024 CONSULT PROG Normal [facility] CONSULT PROG Normal [facility] CONSULT PROG Normal [facility] CRP SerPl-mCncon 12-03-2024 CRP [Mass/Vol] 20.0 mg/dL High <0.9 [facility] Comment on above: Order Comment: Speci men Type: BLOOD SPECIMENOrdering Facility: [facility] Address: [address] [place] [address] Performed By: #### 1 988-5, 21105-8, ####[facility]ATORYCLIA [id number] [place] [address] [place] [address] CHEST WO IVCONon 12-03-19 CT CHEST WO IVCON Invalid Interpretation Code [facility] Comprehensive metabolic 2000 panelon 12-03-2024 Albumin [Mass/Vol] 2.5 g/dL Low 3.9-4.9 [facility] Comment on above: Order Comment: Speci men Type: BLOOD SPECIMENOrdering Facility: [facility] Address: [address] [place] [address] Performed By: #### 1 988-5, 53420-9, 85308-7 ####[facility]ATORYCLIA [id number] [place] [address] [place] ALP [Catalytic activity/Vol] 93 U/L Normal 34-123 [facility] Comment on above: Order Comment: Speci men Type: BLOOD SPECIMENOrdering Facility: [facility] Address: [address] [place] [address] Performed By: #### 1 988-5, 65148-4, 37600-0 ####[facility]ORATORYCLIA [id number] [place] [address] [place] ALT [Catalytic activity/Vol] U/L Low 7-38 [facility] Comment on above: Order Comment: Speci men Type: BLOOD SPECIMENOrdering Facility: [facility] Address: [address] [place] [address] Performed By: #### 1 988-5, 52626-5, 58067-3 ####[facility]ORATORYCLIA [id number] [address] [place] Anion gap [Moles/Vol] 10 mmol/L Normal 8-15 [facility] Comment on above: Order Comment: Speci men Type: BLOOD SPECIMENOrdering Facility: [facility] Address: [address] [place] [address] Performed By: #### 1 988-5, 33532-1, ####[facility]ORATORYCLIA [id number] [place] [address] [place] AST [Catalytic activity/Vol] 15 U/L Normal 13-35 [facility] Comment on above: Order Comment: Speci men Type: BLOOD SPECIMENOrdering Facility: [facility] Address: [facility] [place] [address] Performed By: #### 1 988-5, , ####[facility]ORATORYCLIA [id number] [address] [place] Bilirubin [Mass/Vol] 0.2 mg/dL Normal 0.2-1.3 [facility] Comment on above: Order Comment: Speci men Type: BLOOD SPECIMENOrdering Facility: [facility] Address: [address] [place] [address] Performed By: #### 1 988-5, , ####[facility] LABORATORYCLIA [id number] [address] [facility] Calcium [Mass/Vol] 9.2 mg/dL Normal 8.5-10.2 [facility] Comment on above: Order Comment: Speci men Type: BLOOD SPECIMENOrdering Facility: [facility] Address: [address] [place] [address] Performed By: #### 1 988-5, , ####[facility]ORATORYCLIA [id number] [address] [place] Chloride [Moles/Vol] 94 mmol/L Low 98-107 [facility] Comment on above: Order Comment: Speci men Type: BLOOD SPECIMENOrdering Facility: [facility] Address: [address] [place] [address] Performed By: #### 1 988-5, 31539-9, ####[facility] LABORATORYCLIA [id number] [place] [address] [place] CO2 [Moles/Vol] 24 mmol/L Normal 22-30 [facility] Comment on above: Order Comment: Speci men Type: BLOOD SPECIMENOrdering Facility: [facility] Address: [address] [place] [address] Performed By: #### 1 988-5, , ####[facility] LABORATORYCLIA [id number] [place] [address] [place] Creatinine [Mass/Vol] 0.92 mg/dL Normal 0.58-0.96 [facility] Comment on above: Order Comment: Speci men Type: BLOOD SPECIMENOrdering Facility: [facility] Address: [address] [place] [address] Performed By: #### 1 988-5, , ####[facility]ATORYCLIA [id number] [place] [address] [place] [facility] Creatinine and Glomerular filtration rate.predicted panel (S/P/Bld) 60 mL/min/1.73m??? Normal >=60 [facility] Comment on above: Order Comment: Speci men Type: BLOOD SPECIMENOrdering Facility: [facility] Address: [address] [place] [address] Result Comment: Hilda mated Glomerular Filtration Rate [...] actual GFR. Performed By: #### 1 988-5, 00135-7, 11538-4 ####[facility] LABORATORYCLIA [id number] [place] [address] [place] Glucose [Mass/Vol] 246 mg/dL High 74-99 [facility] Comment on above: Order Comment: Speci men Type: BLOOD SPECIMENOrdering Facility: [facility] Address: [address] [place] [address] Result Comment: The [place] [employer] (ADA) provides guidance for cutoff [...] Standards of Medical Care in Diabetes 2016, [place] [employer]. Diabetes Care. 2016.39(Suppl 1). Performed By: #### 1 988-5, , ####[facility] LABORATORYCLIA [id number] [place] [address] [place] Potassium [Moles/Vol] 4.6 mmol/L Normal 3.7-5.1 [facility] Comment on above: Order Comment: Fan meade Type: BLOOD SPECIMENOrdering Facility: [facility] Address: [address] [place] [address] Performed By: #### 1 988-5, , ####[facility] LABORATORYCLIA [id number] [place] [address] [place] Protein [Mass/Vol] 5.7 g/dL Low 6.3-8.0 [facility] Comment on above: Order Comment: Fan meade Type: BLOOD SPECIMENOrdering Facility: [facility] Address: [address] [place] [address] Performed By: #### 1 988-5, , ####[facility] LABORATORYCLIA [id number] [place] [id number] [place] Sodium [Moles/Vol] 128 mmol/L Low 136-144 [facility] Comment on above: Order Comment: Fan meade Type: BLOOD SPECIMENOrdering Facility: [facility] Address: [address] [place] [address] Performed By: #### 1 988-5, 93735-3, 48199-0 ####[facility]ORATORYCLIA [id number] [place] [address] [place] Urea nitrogen [Mass/Vol] 37 mg/dL High 7-21 [facility] Comment on above: Order Comment: Speci men Type: BLOOD SPECIMENOrdering Facility: [facility] Address: [address] [place] [address] Performed By: #### 1 988-5, 80730-3, ####[facility] LABORATORYCLIA [id number] [place] [address] [place] Cyclic citrullinated peptide IgG Qnon 12-03-2024 CCP ANTIBODY IGG QUALITATIVE Negative Normal Negative [facility] Comment on above: Order Comment: Speci men Type: BLOOD SPECIMENOrdering Facility: [facility] Address: [address] [place] [address] Performed By: #### 3 3935-8 ####[facility] LABCLIA [id number] [place] [address] [place] ESR Westergren method (Bld) [Velocity]on 12-03-2024 ESR (Bld) [Velocity] 124 mm/h High 0-20 [facility] Comment on above: Order Comment: Speci men Type: BLOOD SPECIMENOrdering Facility: [facility] Address: [address] [place] [address] Performed By: #### 4 537-7 ####[facility] LABCLIA [id number] [place] [id number] [place] Magnesium SerPl-mCncon 12-03 Magnesium [Mass/Vol] 1.8 mg/dL Normal 1.7-2.3 [facility] Comment on above: Order Comment: Speci men Type: BLOOD SPECIMENOrdering Facility: [facility] Address: [address] [place] [address] Performed By: #### 1 988-5, 26818-4, ####[facility] LABORATORYCLIA [id number] [place] [address] [place] Rheumatoid fact SerPl-aCncon 12-03-2024 Rheumatoid factor Qn 19 [IU]/mL High <16 [facility] Comment on above: Order Comment: Speci men Type: BLOOD SPECIMENOrdering Facility: [facility] Address: [address] [place] [address] Performed By: #### 1 1572-5 ####[facility] LABCLIA [id number] [facility] [id number] [place], [place] [address] [place] Sodium SerPl-sCncon 12-03-19 25 Sodium [Moles/Vol] 129 mmol/L Low 136-144 [facility] Comment on above: Order Comment: Speci men Type: BLOOD SPECIMENOrdering Facility: [facility] Address: [address] [place] [address] Performed By: #### 2 951-2 ####[facility] LABORATORYCLIA [id number] [place] [address] [place] Sodium [Moles/Vol] 130 mmol/L Low 136-144 [facility] Comment on above: Order Comment: Speci men Type: BLOOD SPECIMENOrdering Facility: [facility] Address: [address] [place] [address] Performed By: #### 2 951-2 ####[facility] LABORATORYCLIA [id number] [address] [place] Sodium [Moles/Vol] 128 mmol/L Low 136-144 [facility] Comment on above: Order Comment: Speci men Type: BLOOD SPECIMENOrdering Facility: [facility] Address: [address] [place] [address] Performed By: #### 2 951-2 ####[facility] LABORATORYCLIA [id number] [place] [address] [place] THERAPY NTon 12-03-2024 THERAPY NT Normal [facility] THERAPY NT Normal [facility] THERAPY NT Normal [facility] cCP IgG SerPl-aCncon 025 Cyclic citrullinated peptide IgG Qn <15 Normal <20 [facility] Comment on above: Order Comment: Speci men Type: BLOOD SPECIMENOrdering Facility: [facility] Address: [address] [place] [address] Performed By: #### 3 3935-8 ####[facility] LABCLIA [id number] [place] [id number] [place] 25(OH)D3 SerPl-mCncon 2024 25-hydroxyvitamin D3 [Mass/Vol] 13.4 ng/mL Low 31.0-80.0 [facility] Comment on above: Order Comment: Speci men Type: BLOOD SPECIMENOrdering Facility: [facility] Address: [address] [place] [address] Result Comment: Clas sification of 25 [place] Vitamin D status:Deficiency/Insufficiency: < or = 30 ng/ml.Sufficiency/Optimal Levels: 31-80 ng/mLToxicity: > 100 ng/mL.Test performed by chemiluminescent immunoassay. Performed By: #### 1 989-3, 19740-0, 29763-0, [facility], 6969-0 ####[facility] LABCLIA [id number] [place] [address] [place] ALLIED HEALTHon 12-02-2024 [facility] Normal [facility] Normal [facility] ARTERIAL BLOOD GASESon 12-02 Base excess Calc (Bld) [Moles/Vol] 4 mmol/L High 0-2 [facility] Comment on above: Order Comment: Speci men Type: ARTERIAL BLOOD SPECIMENOrdering Facility: [facility] Address: [address] [place] [address] Performed By: #### A LLBG ####[facility] RESPIRATORYIA [id number] [facility] [id number] [place] [address] Carboxyhemoglobin (BldA) [Mass fraction] 1.4 % Normal 0.0-2.0 [facility] Comment on above: Order Comment: Speci men Type: ARTERIAL BLOOD SPECIMENOrdering Facility: [facility] Address: [address] [place] [address] Result Comment: Carb oxyhemoglobin Reference Range for Smokers: 2.0-8.0% Performed By: #### A LLBG ####[facility] [id number] [facility] RESPIRAT[facility] [id number] [address] [address] CO2 (Bld) [Partial pressure] 41 mm Hg Normal 36-46 [facility] Comment on above: Order Comment: Speci men Type: ARTERIAL BLOOD SPECIMENOrdering Facility: [facility] Address: [address] [place] [address] Performed By: #### A LLBG ####[facility] [id number] [facility]OS[facility] RESPIRATORY [id number] [address] [address] CO2 adjusted to patient's actual temperature (Bld) [Partial pressure] Normal [facility] Comment on above: Order Comment: Speci men Type: ARTERIAL BLOOD SPECIMENOrdering Facility: [facility] Address: [address] [place] [address] Performed By: #### A LLBG ####[facility] [id number] [facility]OSP[facility] RESPIRATORY [id number] [address] [address] HCO3 (Bld) [Moles/Vol] 28 mmol/L High 22-26 [facility] Comment on above: Order Comment: Speci men Type: ARTERIAL BLOOD SPECIMENOrdering Facility: [facility] Address: [address] [place] [address] Performed By: #### A LLBG ####[facility]IRATORYBARRE CITY [facility] [id number] [facility] RESPIRATORY [id number] [address] [address] Hemoglobin (Bld) [Mass/Vol] 10.3 g/dL Low 11.5-15.5 [facility] Comment on above: Order Comment: Speci men Type: ARTERIAL BLOOD SPECIMENOrdering Facility: [facility] Address: [address] [place] [address] Performed By: #### A LLBG ####[facility] [id number] [facility]OS[facility] RESPIRATORY [id number] [address] [address] Lactate [Moles/Vol] 1.0 mmol/L Normal 0.5-2.[address] [facility] Comment on above: Order Comment: Speci men Type: ARTERIAL BLOOD SPECIMENOrdering Facility: [facility] Address: [address] [place] [address] Performed By: #### A LLBG ####[facility]PIRATORYBARRE CITY [facility] [id number] [facility]OS[facility] RESPIRATORY [id number] [address] [address] Methemoglobin (Bld) [Mass fraction] % Normal 0.0-1.5 [facility] Comment on above: Order Comment: Speci men Type: ARTERIAL BLOOD SPECIMENOrdering Facility: [facility] Address: [address] [place] [address] Performed By: #### A LLBG ####[place] [id number] [place] [address] RESPIRATORY [id number] [address] [address] O2 THERAPY RA=Room Air [facility] Comment on above: Order Comment: Speci men Type: ARTERIAL BLOOD SPECIMENOrdering Facility: [facility] Address: [address] [place] [address] Performed By: #### A LLBG ####[facility] [id number] [facility]OSP[facility] RESPIRATORY [id number] [address] [address] Oxygen (Bld) [Partial pressure] 61 mm Hg Low 85-95 [facility] Comment on above: Order Comment: Speci men Type: ARTERIAL BLOOD SPECIMENOrdering Facility: [facility] Address: [address] [place] [address] Performed By: #### A LLBG ####[facility]PIRATORYBARRE CITY [facility] [id number] [facility] RESPIRATORY [id number] [address] [address] Oxygen adjusted to patient's actual temperature (Bld) [Partial pressure] Normal [facility] Comment on above: Order Comment: Speci men Type: ARTERIAL BLOOD SPECIMENOrdering Facility: [facility] Address: [address] [place] [address] Performed By: #### A LLBG ####[place] [id number] [place] [address] RESPIRATORY [id number] [address] [address] Oxyhemoglobin (BldA) [Mass fraction] 90 % Low 95-98 [facility] Comment on above: Order Comment: Speci men Type: ARTERIAL BLOOD SPECIMENOrdering Facility: [facility] Address: [address] [place] [address] Performed By: #### A LLBG ####[facility] RESPIRATORYCLIA [id number] [facility]OS[facility] RESPIRAT[facility] [id number] [address] [address] pH (Bld) 7.45 [pH] Normal 7.35-7.45 [facility] Comment on above: Order Comment: Speci men Type: ARTERIAL BLOOD SPECIMENOrdering Facility: [facility] Address: [address] [place] [address] Performed By: #### A LLBG ####[facility] RESPIRATORYCLIA [id number] [facility] RESPIRATORY [id number] [address] [address] pH adjusted to patient's actual temperature (Bld) Normal [facility] Comment on above: Order Comment: Speci men Type: ARTERIAL BLOOD SPECIMENOrdering Facility: [facility] Address: [address] [place] [address] Performed By: #### A LLBG ####[facility] RESPIRATORYCLIA [id number] [facility] RESPIRATORY [id number] [address] [address] PO2 / FIO2 RATIO 290 mmHg Low >300 [facility] Comment on above: Order Comment: Speci men Type: ARTERIAL BLOOD SPECIMENOrdering Facility: [facility] Address: [address] [place] [address] Performed By: #### A LLBG ####[facility] RESPIRATORYCLIA [id number] [facility]OS[facility] RESPIRATORY [id number] [address] [address] Potassium [Moles/Vol] 4.0 mmol/L Normal 3.5-5.0 [facility] Comment on above: Order Comment: Speci men Type: ARTERIAL BLOOD SPECIMENOrdering Facility: [facility] Address: [address] [place] [address] Performed By: #### A LLBG ####[facility] RESPIRATORYCLIA [id number] [facility] RESPIRAT[facility] [id number] [address] [place] [address] Ammonia Plas-sCncon 12-02-19 25 Ammonia (P) [Moles/Vol] 14 umol/L Normal 11-51 [facility] Comment on above: Order Comment: Speci men Type: BLOOD SPECIMENOrdering Facility: [facility] Address: [address] [place] [address] Performed By: #### 1 6362-6 ####[facility] LABORATORYCLIA [id number] [place] [address] [place] CBC W Auto Differential pane l (Bld)on 12-02-2024 Basophils (Bld) [#/Vol] 0.06 10*3/uL Normal <0.11 [facility] Comment on above: Order Comment: Speci men Type: BLOOD SPECIMENOrdering Facility: [facility] Address: [address] [place] [address] Performed By: #### 5 7021-8 ####[facility] LABORATORYCLIA [id number] [place] [address] [place] Basophils/100 WBC (Bld) 0.3 % Normal [facility] Comment on above: Order Comment: Speci men Type: BLOOD SPECIMENOrdering Facility: [facility] Address: [address] [place] [address] Performed By: #### 5 7021-8 ####[facility] LABORATORYCLIA [id number] [place] [address] [place] Differential cell count method Nom (Bld) Auto Normal [facility] Comment on above: Order Comment: Speci men Type: BLOOD SPECIMENOrdering Facility: [facility] Address: [address] [place] [address] Performed By: #### 5 7021-8 ####[facility] LABORATORYCLIA [id number] [place] [address] [place] Eosinophils (Bld) [#/Vol] 0.24 10*3/uL Normal <0.46 [facility] Comment on above: Order Comment: Speci men Type: BLOOD SPECIMENOrdering Facility: [facility] Address: [address] [place] [address] Performed By: #### 5 7021-8 ####[facility] LABORATORYCLIA [id number] [address] [place] Eosinophils/100 WBC (Bld) 1.2 % Normal [facility] Comment on above: Order Comment: Speci men Type: BLOOD SPECIMENOrdering Facility: [facility] Address: [address] [place] [address] Performed By: #### 5 7021-8 ####[facility] LABORATORYCLIA [id number] [address] [place] Erythrocyte distribution width (RBC) [Ratio] 15.6 % High 11.5-15.0 [facility] Comment on above: Order Comment: Speci men Type: BLOOD SPECIMENOrdering Facility: [facility] Address: [address] [place] [address] Performed By: #### 5 7021-8 ####[facility] LABORATORYCLIA [id number] [address] [place] Hematocrit (Bld) [Volume fraction] 27.1 % Low 36.0-46.0 [facility] Comment on above: Order Comment: Speci men Type: BLOOD SPECIMENOrdering Facility: [facility] Address: [address] [place] [address] Performed By: #### 5 7021-8 ####[facility] LABORATORYCLIA [id number] [address] [place] Hemoglobin (Bld) [Mass/Vol] 9.0 g/dL Low 11.5-15.5 [facility] Comment on above: Order Comment: Speci men Type: BLOOD SPECIMENOrdering Facility: [facility] Address: [address] [place] [address] Performed By: #### 5 7021-8 ####[facility] LABORATORYCLIA [id number] [address] [place] Immature granulocytes (Bld) [#/Vol] 0.23 10*3/uL High <0.10 [facility] Comment on above: Order Comment: Speci men Type: BLOOD SPECIMENOrdering Facility: [facility] Address: [address] [place] [address] Performed By: #### 5 7021-8 ####[facility] LABORATORYCLIA [id number] [address] Immature granulocytes/100 WBC (Bld) 1.2 % Normal [facility] Comment on above: Order Comment: Speci men Type: BLOOD SPECIMENOrdering Facility: [facility] Address: [address] [place] [address] Performed By: #### 5 7021-8 ####[facility] LABORATORYCLIA [id number] [place] [address] [place] Lymphocytes (Bld) [#/Vol] 0.92 10*3/uL Low 1.00-4.00 [facility] Comment on above: Order Comment: Speci men Type: BLOOD SPECIMENOrdering Facility: [facility] Address: [address] [place] [address] Performed By: #### 5 7021-8 ####[facility] LABORATORYCLIA [id number] [address] Lymphocytes/100 WBC (Bld) 4.7 % Normal [facility] Comment on above: Order Comment: Speci men Type: BLOOD SPECIMENOrdering Facility: [facility] Address: [address] [place] [address] Performed By: #### 5 7021-8 ####[facility] LABORATORYCLIA [id number] [address] [place] MCH (RBC) [Entitic mass] 28.2 pg Normal 26.0-34.0 [facility] Comment on above: Order Comment: Speci men Type: BLOOD SPECIMENOrdering Facility: [facility] Address: [address] [place] [address] Performed By: #### 5 7021-8 ####[facility] LABORATORYCLIA [id number] [place] [address] [place] MCHC (RBC) [Mass/Vol] 33.2 g/dL Normal 30.5-36.0 [facility] Comment on above: Order Comment: Speci men Type: BLOOD SPECIMENOrdering Facility: [facility] Address: [address] [place] [address] Performed By: #### 5 7021-8 ####[facility] LABORATORYCLIA [id number] [address] [place] MCV (RBC) [Entitic vol] 85.0 fL Normal 80.0-100.0 [facility] Comment on above: Order Comment: Speci men Type: BLOOD SPECIMENOrdering Facility: [facility] Address: [address] [place] [address] Performed By: #### 5 7021-8 ####[facility] LABORATORYCLIA [id number] [place] [address] [place] Monocytes (Bld) [#/Vol] 1.07 10*3/uL High <0.87 [facility] Comment on above: Order Comment: Speci men Type: BLOOD SPECIMENOrdering Facility: [facility] Address: [address] [place] [address] Performed By: #### 5 7021-8 ####[facility] LABORATORYCLIA [id number] [address] [place] Monocytes/100 WBC (Bld) 5.4 % Normal [facility] Comment on above: Order Comment: Speci men Type: BLOOD SPECIMENOrdering Facility: [facility] Address: [address] [place] [address] Performed By: #### 5 7021-8 ####[facility] LABORATORYCLIA [id number] [place] [address] [place] Neutrophils (Bld) [#/Vol] 17.12 10*3/uL High 1.45-7.50 [facility] Comment on above: Order Comment: Speci men Type: BLOOD SPECIMENOrdering Facility: [facility] Address: [address] [place] [address] Performed By: #### 5 7021-8 ####[facility] LABORATORYCLIA [id number] [address] [place] Neutrophils/100 WBC (Bld) 87.2 % Normal [facility] Comment on above: Order Comment: Speci men Type: BLOOD SPECIMENOrdering Facility: [facility] Address: [address] [place] [address] Performed By: #### 5 7021-8 ####[facility] LABORATORYCLIA [id number] [address] [place] Nucleated RBC (Bld) [#/Vol] 10*3/uL Normal <0.01 [facility] Comment on above: Order Comment: Speci men Type: BLOOD SPECIMENOrdering Facility: [facility] Address: [address] [place] [address] Performed By: #### 5 7021-8 ####[facility] LABORATORYCLIA [id number] [address] [place] Nucleated RBC/100 WBC (Bld) [Ratio] 0.0 /100 WBC Normal [facility] Comment on above: Order Comment: Speci men Type: BLOOD SPECIMENOrdering Facility: [facility] Address: [address] [place] [address] Performed By: #### 5 7021-8 ####[facility] LABORATORYCLIA [id number] [place] [address] [place] Platelet mean volume (Bld) [Entitic vol] 8.8 fL Low 9.0-12.7 [facility] Comment on above: Order Comment: Speci men Type: BLOOD SPECIMENOrdering Facility: [facility] Address: [address] [place] [address] Performed By: #### 5 7021-8 ####[facility] LABORATORYCLIA [id number] [place] [address] [place] Platelets (Bld) [#/Vol] 439 10*3/uL High 150-400 [facility] Comment on above: Order Comment: Speci men Type: BLOOD SPECIMENOrdering Facility: [facility] Address: [address] [place] [address] Performed By: #### 5 7021-8 ####[facility] LABORATORYCLIA [id number] [place] [address] [place] RBC (Bld) [#/Vol] 3.19 10*6/uL Low 3.90-5.[address] [facility] Comment on above: Order Comment: Speci men Type: BLOOD SPECIMENOrdering Facility: [facility] Address: [address] [place] [address] Performed By: #### 5 7021-8 ####[facility] LABORATORYCLIA [id number] [address] OF [facility] WBC (Bld) [#/Vol] 19.64 10*3/uL High 3.70-11.00 [facility] Comment on above: Order Comment: Speci men Type: BLOOD SPECIMENOrdering Facility: [facility] Address: [address] [place] [address] Performed By: #### 5 7021-8 ####[facility] LABORATORYCLIA [id number] [address] [place] CK SerPl-cCncon 12-02-2024 CK [Catalytic activity/Vol] 48 U/L Normal 42-196 [facility] Comment on above: Order Comment: Speci men Type: BLOOD SPECIMENOrdering Facility: [facility] Address: [address] [place] [address] Performed By: #### 2 951-2, 2157-6, 3084-1 ####[facility] LABORATORYCLIA [id number] [address] OF [facility] CONSULT PROGon 12-02-2024 CONSULT PROG Normal [facility] CRP SerPl-mCncon 12-02-2024 CRP [Mass/Vol] 14.2 mg/dL High <0.9 [facility] Comment on above: Order Comment: Speci men Type: BLOOD SPECIMENOrdering Facility: [facility] Address: [address] [place] [address] Performed By: #### 3 084-1, 65593-0, 76191-6, 1987- ####[facility] LABORATORYCLIA [id number] [address] [place] Comprehensive metabolic 2000 panelon 12-02-2024 Albumin [Mass/Vol] 2.3 g/dL Low 3.9-4.9 [facility] Comment on above: Order Comment: Speci men Type: BLOOD SPECIMENOrdering Facility: [facility] Address: [address] [place] [address] [place] [address] Performed By: #### 3 084-1, , , 1988-03 ####[facility] LABORATORYCLIA [id number] [place] [address] [place] ALP [Catalytic activity/Vol] 94 U/L Normal 34-123 [facility] Comment on above: Order Comment: Speci men Type: BLOOD SPECIMENOrdering Facility: [facility] Address: [address] [place] [address] Performed By: #### 3 084-1, , , 1988-03 ####[facility] LABORATORYCLIA [id number] [place] [address] [place] ALT [Catalytic activity/Vol] U/L Low 7-38 [facility] Comment on above: Order Comment: Speci men Type: BLOOD SPECIMENOrdering Facility: [facility] Address: [address] [place] [address] Performed By: #### 3 084-1, , , 1988-03 ####[facility] LABORATORYCLIA [id number] [place] [address] [place] Anion gap [Moles/Vol] 11 mmol/L Normal 8-15 [facility] Comment on above: Order Comment: Speci men Type: BLOOD SPECIMENOrdering Facility: [facility] Address: [address] [place] [address] Performed By: #### 3 084-1, , , 1988-03 ####[facility] LABORATORYCLIA [id number] [place] [address] [place] AST [Catalytic activity/Vol] 15 U/L Normal 13-35 [facility] Comment on above: Order Comment: Speci men Type: BLOOD SPECIMENOrdering Facility: [facility] Address: [address] [place] [address] Performed By: #### 3 084-1, , , 1988-03 ####[facility] LABORATORYCLIA [id number] [place] [address] [place] Bilirubin [Mass/Vol] 0.2 mg/dL Normal 0.2-1.3 [facility] Comment on above: Order Comment: Speci men Type: BLOOD SPECIMENOrdering Facility: [facility] Address: [address] [place] [address] Performed By: #### 3 084-1, , , 1988-03 ####[facility] LABORATORYCLIA [id number] [place] [address] [place] Calcium [Mass/Vol] 9.0 mg/dL Normal 8.5-10.2 [facility] Comment on above: Order Comment: Speci men Type: BLOOD SPECIMENOrdering Facility: [facility] Address: [address] [place] [address] Performed By: #### 3 084-1, , , 1988-03 ####[facility] LABORATORYCLIA [id number] [place] [address] [place] Chloride [Moles/Vol] 93 mmol/L Low 98-107 [facility] Comment on above: Order Comment: Speci men Type: BLOOD SPECIMENOrdering Facility: [facility] Address: [address] [place] [address] Performed By: #### 3 084-1, , , 1988-03 ####[facility]ATORYCLIA [id number] [place] [address] [place] CO2 [Moles/Vol] 24 mmol/L Normal 22-30 [facility] Comment on above: Order Comment: Speci men Type: BLOOD SPECIMENOrdering Facility: [facility] Address: [address] [place] [address] Performed By: #### 3 084-1, , , 1988-03 ####[facility]ORYCL[facility] [id number] [place] [address] [place] Creatinine [Mass/Vol] 0.89 mg/dL Normal 0.58-0.96 [facility] Comment on above: Order Comment: Speci men Type: BLOOD SPECIMENOrdering Facility: [facility] Address: [address] [place] [address] Performed By: #### 3 084-1, , , 1988-03 ####[facility]ORATORYCLIA [id number] [place] [address] [place] Creatinine and Glomerular filtration rate.predicted panel (S/P/Bld) 62 mL/min/1.73m??? Normal >=60 [facility] Comment on above: Order Comment: Fan meade Type: BLOOD SPECIMENOrdering Facility: [facility] Address: [address] [place] [address] Result Comment: Hilda mated Glomerular Filtration Rate [...] By: #### 3 084-1, , , 1988-03 ####[facility]ORATORYCLIA [id number] [place] [id number] [place] Glucose [Mass/Vol] 289 mg/dL High 74-99 [facility] Comment on above: Order Comment: Kateleroy meade Type: BLOOD SPECIMENOrdering Facility: [facility] Address: [address] [place] [address] Result Comment: The [place] [employer] (ADA) provides guidance for cutoff [...] Standards of Medical Care in Diabetes 2016, [place] [employer]. Diabetes Care. 2016.39(Suppl 1). Performed By: #### 3 084-1, , , 1988-03 ####[facility]ATORYCLIA [id number] [place] [address] [place] Potassium [Moles/Vol] 4.4 mmol/L Normal 3.7-5.1 [facility] Comment on above: Order Comment: Speci men Type: BLOOD SPECIMENOrdering Facility: [facility] Address: [address] [place] [address] Performed By: #### 3 084-1, , , 1988-03 ####[facility]ORATORYCLIA [id number] [place] [address] [place] Protein [Mass/Vol] 5.6 g/dL Low 6.3-8.0 [facility] Comment on above: Order Comment: Speci men Type: BLOOD SPECIMENOrdering Facility: [facility] Address: [address] [place] [address] Performed By: #### 3 084-1, , , 1988-03 ####[facility]ORATORYCLIA [id number] [place] [address] [place] Sodium [Moles/Vol] 128 mmol/L Low 136-144 [facility] Comment on above: Order Comment: Speci men Type: BLOOD SPECIMENOrdering Facility: [facility] Address: [address] [place] [address] Performed By: #### 3 084-1, , , 1988-03 ####[facility]ORATORYCLIA [id number] [place] [address] [place] Urea nitrogen [Mass/Vol] 36 mg/dL High 7-21 [facility] Comment on above: Order Comment: Speci men Type: BLOOD SPECIMENOrdering Facility: [facility] Address: [address] [place] [address] Performed By: #### 3 084-1, , , 1988-03 ####[facility]ORATORYCLIA [id number] [place] [address] [place] DNA double strand Ab IA Qn ( S)on 12-02-2024 DNA ANTIBODY 117 IU/mL Normal <=200 [facility] Comment on above: Order Comment: Speci men Type: BLOOD SPECIMENOrdering Facility: [facility] Address: [address] [place] [address] Result Comment: Nega tive: <200 IU/mLEquivocal: 201-300 IU/mLModerate Positive: 301-800 IU/mLStrong Positive: >801 IU/mL Performed By: #### 1 989-3, 28633-6, 25896-2, ANCA, 6969-0 ####[facility] LABIA [id number] [place] [address] [place] DNA ANTIBODY QUALITATIVE INTERPRETATION Negative Normal Negative [facility] Comment on above: Order Comment: Speci men Type: BLOOD SPECIMENOrdering Facility: [facility] Address: [address] [place] [address] Performed By: #### 1 989-3, 27040-8, 73742-9, ANCA, 6969-0 ####[facility] LABIA [id number] [place] [address] [place] ESR Westergren method (Bld) [Velocity]on 12-02-2024 ESR (Bld) [Velocity] 120 mm/h High 0-20 [facility] Comment on above: Order Comment: Speci men Type: BLOOD SPECIMENOrdering Facility: [facility] Address: [address] [place] [address] Performed By: #### 4 537-7 ####[facility] LABIA [id number] [place] [address] [place] MRI BRAIN WO/W IVCONon 12-02 MRI BRAIN WO/W IVCON Normal [facility] MRI CERVICAL SPINE WO/W IVCO Non 12-02-2024 MRI CERVICAL SPINE WO/W IVCON Normal [facility] MRI LUMBAR SPINE WO/W IVCONo n 12-02-2024 MRI LUMBAR SPINE WO/W IVCON Normal [facility] MRI THORACIC SPINE WO/W IVCO Non 12-02-2024 MRI THORACIC SPINE WO/W IVCON Normal [facility] Magnesium SerPl-mCncon 12-02 Magnesium [Mass/Vol] 1.5 mg/dL Low 1.7-2.3 [facility] Comment on above: Order Comment: Speci men Type: BLOOD SPECIMENOrdering Facility: [facility] Address: [address] [place] [address] Performed By: #### 3 084-1, 87842-4, 22529-1, 1988-03 ####[facility]ORYCLIA [id number] [place] [address] [place] Myeloperoxidase Ab Ser-aCnco n 12-02-2024 Myeloperoxidase Ab Qn (S) <0.2 Normal <1.0 [facility] Comment on above: Order Comment: Speci men Type: BLOOD SPECIMENOrdering Facility: [facility] Address: [address] [place] [address] Performed By: #### 1 989-3, 43835-8, 20582-7, [facility], 6969-0 ####[facility] LABCLIA [id number] [place] [address] [place] Osmolality SerPlon Osmolality [Osmolality] 285 mosm/kg Normal 275-300 [facility] Comment on above: Order Comment: Speci men Type: BLOOD SPECIMENOrdering Facility: [facility] Address: [address] [place] [address] Performed By: #### 2 692-2 ####[facility] LABCLIA [id number] [place] [id number] [place] Osmolality Uron 12-02-2024 Osmolality (U) [Osmolality] 488 mosm/kg Normal 50-1200 [facility] Comment on above: Order Comment: Speci men Type: URINE SPECIMENOrdering Facility: [facility] Address: [address] [place] [address] Performed By: #### 2 695-5 ####[facility] LABCLIA [id number] [place] [id number] [place] PROTEINASE 3 ANTIBODYon 11-14 Proteinase 3 Ab Qn (S) <0.2 Normal <1.0 [facility] Comment on above: Order Comment: Speci men Type: BLOOD SPECIMENOrdering Facility: [facility] Address: [address] [place] [address] Performed By: #### 1 989-3, 26805-4, 77366-5, ANCA, 6969-0 ####[facility] LABCLIA [id number] [place] [address] [place] Phosphate SerPl-mCncon 12-02 Phosphate [Mass/Vol] 3.0 mg/dL Normal 2.7-4.8 [facility] Comment on above: Order Comment: Speci men Type: BLOOD SPECIMENOrdering Facility: [facility] Address: [address] [place] [address] Performed By: #### 2 777-1 ####[facility]ATORYCLIA [id number] [place] [address] [place] Smooth muscle Ab Ql (S)on ACTIN SMOOTH MUSCLE IGG QUALITATIVE Negative Normal Negative [facility] Comment on above: Order Comment: Speci men Type: BLOOD SPECIMENOrdering Facility: [facility] Address: [address] [place] [address] Performed By: #### 1 989-3, 74292-6, 05235-2, ANCA, 6969-0 ####[facility] LABCLIA [id number] [place] [id number] [place] ACTIN SMOOTH MUSCLE IGG QUANTITATIVE 3 Units Normal <20 [facility] Comment on above: Order Comment: Speci men Type: BLOOD SPECIMENOrdering Facility: [facility] Address: [address] [place] [address] Performed By: #### 1 989-3, 23975-8, 81940-4, ANCA, 6969-0 ####[facility] LABCLIA [id number] [id number] [address] [place] Sodium SerPl-sCncon 12-02-19 25 Sodium [Moles/Vol] 127 mmol/L Low 136-144 [facility] Comment on above: Order Comment: Speci men Type: BLOOD SPECIMENOrdering Facility: [facility] Address: [address] [place] [address] Performed By: #### 2 951-2 ####[facility]ATORYCLIA [id number] [place] [address] [place] Sodium [Moles/Vol] 130 mmol/L Low 136-144 [facility] Comment on above: Order Comment: Speci men Type: BLOOD SPECIMENOrdering Facility: [facility] Address: [address] [place] [address] Performed By: #### 2 951-2, 2157-6, 3084-1 ####[facility]ORATORYCLIA [id number] [place] [address] [place] US ABD RIGHT UPPER QUADRANTo n 12-02-2024 US ABD RIGHT UPPER QUADRANT Normal [facility] US ABD SPLEEN -NBon 12-02-19 25 US ABD SPLEEN -NB Normal [facility] US EXT MASS/FLUID COLLECTION LTon 12-02-2024 US EXT MASS/FLUID COLLECTION LT Normal [facility] Urate SerPl-mCncon 5 Urate [Mass/Vol] 4.9 mg/dL Normal 2.5-6.6 [facility] Comment on above: Order Comment: Speci men Type: BLOOD SPECIMENOrdering Facility: [facility] Address: [address] [place], [place] [address] [address] Performed By: #### 2 951-2, 36, 3084-1 ####[facility]ORATORYCLIA [id number] [address] [place] Urate [Mass/Vol] 5.1 mg/dL Normal 2.5-6.6 [facility] Comment on above: Order Comment: Speci men Type: BLOOD SPECIMENOrdering Facility: [facility] Address: [address] [place] [address] Performed By: #### 3 084-1, 61739-1, 88209-7, 1987- ####[facility]ATORYCLIA [id number] [place] [address] [place] ALLIED HEALTHon 12-01-2024 ALLIED HEALTH Normal [facility] Bacteria Ur Culton Bacteria identified Cx Nom (U) CULTURE, URINE: Mixed microbiota: ORGANISM ID: 1 <10,000 CFU/ml Lactose negative gram negative bacilli Insignificant colony count. No further workup. Normal [facility] Comment on above: Performed By: #### 6 30-4 ####[facility] LABCLIA [id number] [facility] [id number] [address] [place] Basic metabolic 2000 panelon 12-01-2024 Anion gap [Moles/Vol] 12 mmol/L Normal 8-15 [facility] Comment on above: Order Comment: Speci men Type: BLOOD SPECIMENOrdering Facility: [facility] Address: [address] [place] [address] Performed By: #### 2 4321-2 ####[facility]ORYCLIA [id number] [place] [address] [place] Calcium [Mass/Vol] 8.7 mg/dL Normal 8.5-10.2 [facility] Comment on above: Order Comment: Speci men Type: BLOOD SPECIMENOrdering Facility: [facility] Address: [address] [place] [address] Performed By: #### 2 4321-2 ####[facility]ATORYCLIA [id number] [place] [address] [place] Chloride [Moles/Vol] 91 mmol/L Low 98-107 [facility] Comment on above: Order Comment: Speci men Type: BLOOD SPECIMENOrdering Facility: [facility] Address: [address] [place] [address] Performed By: #### 2 4321-2 ####[facility]ATORYCLIA [id number] [place] [address] [place] CO2 [Moles/Vol] 25 mmol/L Normal 22-30 [facility] Comment on above: Order Comment: Speci men Type: BLOOD SPECIMENOrdering Facility: [facility] Address: [address] [place] [address] Performed By: #### 2 4321-2 ####[facility]ATORYCLIA [id number] [address] Creatinine [Mass/Vol] 1.03 mg/dL High 0.58-0.96 [facility] Comment on above: Order Comment: Fan halina Type: BLOOD SPECIMENOrdering Facility: [facility] Address: [address] [place] [address] Performed By: #### 2 4321-2 ####[facility]ORATORYCLIA [id number] [address] Creatinine and Glomerular filtration rate.predicted panel (S/P/Bld) 52 mL/min/1.73m??? Low >=60 [facility] Comment on above: Order Comment: Fan meade Type: BLOOD SPECIMENOrdering Facility: [facility] Address: [address] [place] [address] Result Comment: Hilda mated Glomerular Filtration Rate [...] Performed By: #### 2 4321-2 ####[facility]ATORYCLIA [id number] [address] Glucose [Mass/Vol] 200 mg/dL High 74-99 [facility] Comment on above: Order Comment: Fan [facility] Type: BLOOD SPECIMENOrdering Facility: [facility] Address: [address] [place] [address] Result Comment: The [place] [employer] (ADA) provides guidance for cutoff [...] Standards of Medical Care in Diabetes 2016, [place] [employer]. Diabetes Care. 2016.39(Suppl 1). Performed By: #### 2 4321-2 ####[facility]ATORYCLIA [id number] [place] [address] [place] Potassium [Moles/Vol] 4.7 mmol/L Normal 3.7-5.1 [facility] Comment on above: Order Comment: Fan meade Type: BLOOD SPECIMENOrdering Facility: [facility] Address: [address] [place] [address] Performed By: #### 2 4321-2 ####[facility]ORATORYCLIA [id number] [place] [address] [place] Sodium [Moles/Vol] 128 mmol/L Low 136-144 [facility] Comment on above: Order Comment: Fan meaed Type: BLOOD SPECIMENOrdering Facility: [facility] Address: [address] [place] [address] Performed By: #### 2 4321-2 ####[facility]ORATORYCLIA [id number] [place] [address] [place] Urea nitrogen [Mass/Vol] 36 mg/dL High 7-21 [facility] Comment on above: Order Comment: Fan meade Type: BLOOD SPECIMENOrdering Facility: [facility] Address: [address] [place] [address] Performed By: #### 2 4321-2 ####[facility]ORATORYCLIA [id number] [place] [address] [place] Anion gap [Moles/Vol] 12 mmol/L Normal 8-15 [facility] Comment on above: Order Comment: Fan meade Type: BLOOD SPECIMENOrdering Facility: [facility] Address: [address] [place] [address] Performed By: #### 1 9123-9, 95871-7, 55581-0, 60945-5, 68818-4 ####[facility]ORATORYCLIA [id number] [place] [address] [place] Calcium [Mass/Vol] 9.4 mg/dL Normal 8.5-10.2 [facility] Comment on above: Order Comment: Speci men Type: BLOOD SPECIMENOrdering Facility: [facility] Address: [address] [place] [address] Performed By: #### 1 9123-9, 95675-1, 14295-1, 05719-9, 71443-7 ####[facility]ORYCLIA [id number] [place] [address] [place] Chloride [Moles/Vol] 92 mmol/L Low 98-107 [facility] Comment on above: Order Comment: Speci men Type: BLOOD SPECIMENOrdering Facility: [facility] Address: [address] [place] [address] Performed By: #### 1 9123-9, 04652-0, 32673-6, 70066-3, 32731-5 ####[facility]ATORYCLIA [id number] [place] [address] [place] CO2 [Moles/Vol] 25 mmol/L Normal 22-30 [facility] Comment on above: Order Comment: Speci men Type: BLOOD SPECIMENOrdering Facility: [facility] Address: [address] [place] [address] Performed By: #### 1 9123-9, 59818-9, 22052-6, 72473-0, 61544-7 ####[facility]ATORYCLIA [id number] [place] [address] [place] Creatinine [Mass/Vol] 0.95 mg/dL Normal 0.58-0.96 [facility] Comment on above: Order Comment: Speci men Type: BLOOD SPECIMENOrdering Facility: [facility] Address: [address] [place] [address] Performed By: #### 1 9123-9, 73999-0, 81514-6, 82938-8, 24371-7 ####[facility]ATORYCLIA [id number] [place] [address] [place] Creatinine and Glomerular filtration rate.predicted panel (S/P/Bld) 58 mL/min/1.73m??? Low >=60 [facility] Comment on above: Order Comment: Fan meade Type: BLOOD SPECIMENOrdering Facility: [facility] Address: [address] [place] [address] Result Comment: Hilda mated Glomerular Filtration Rate [...] actual GFR. Performed By: #### 1 9123-9, 83691-1, 22079-0, 59217-8, 61344-0 ####[facility]ATORYCLIA [id number] [place] [address] [place] Glucose [Mass/Vol] 230 mg/dL High 74-99 [facility] Comment on above: Order Comment: Fan meade Type: BLOOD SPECIMENOrdering Facility: [facility] Address: [address] [place] [address] Result Comment: The [place] [employer] (ADA) provides guidance for cutoff [...] Standards of Medical Care in Diabetes 2016, [place] [employer]. Diabetes Care. 2016.39(Suppl 1). Performed By: #### 1 9123-9, 57486-3, 06701-6, 70951-1, 04203-3 ####[facility]ATORYCLIA [id number] [place] [address] [place] Potassium [Moles/Vol] 4.7 mmol/L Normal 3.7-5.1 [facility] Comment on above: Order Comment: Speci men Type: BLOOD SPECIMENOrdering Facility: [facility] Address: [address] [place] [address] Performed By: #### 1 9123-9, 37648-1, 06090-3, 15338-5, 64915-7 ####[facility]ORATORYCLIA [id number] [place] [address] [place] [facility] Sodium [Moles/Vol] 129 mmol/L Low 136-144 [facility] Comment on above: Order Comment: Speci men Type: BLOOD SPECIMENOrdering Facility: [facility] Address: [address] [place] [address] Performed By: #### 1 9123-9, 87207-8, 71775-4, 13940-9, 25005-8 ####[facility]ORYCLIA [id number] [address] STATES OF [facility] Urea nitrogen [Mass/Vol] 36 mg/dL High 7-21 [facility] Comment on above: Order Comment: Speci men Type: BLOOD SPECIMENOrdering Facility: [facility] Address: [address] [place] [address] Performed By: #### 1 9123-9, 30112-2, 24954-5, 14465-4, 12709-0 ####[facility]ORYCLIA [id number] [address] STATES OF [facility] CBC W Auto Differential pane l (Bld)on 12-01-2024 Basophils (Bld) [#/Vol] 0.06 10*3/uL Normal <0.11 [facility] Comment on above: Order Comment: Speci men Type: BLOOD SPECIMENOrdering Facility: [facility] Address: [address] [place] [address] Performed By: #### 5 7021-8 ####[facility]ATORYCLIA [id number] [address] STATES [facility] Basophils/100 WBC (Bld) 0.3 % Normal [facility] Comment on above: Order Comment: Speci men Type: BLOOD SPECIMENOrdering Facility: [facility] Address: [address] [place] [address] Performed By: #### 5 7021-8 ####[facility]ORATORYCLIA [id number] [address] [place] Differential cell count method Nom (Bld) Auto Normal [facility] Comment on above: Order Comment: Speci men Type: BLOOD SPECIMENOrdering Facility: [facility] Address: [address] [place] [address] Performed By: #### 5 7021-8 ####[facility]ATORYCLIA [id number] [place] [address] [place] Eosinophils (Bld) [#/Vol] 0.20 10*3/uL Normal <0.46 [facility] Comment on above: Order Comment: Speci men Type: BLOOD SPECIMENOrdering Facility: [facility] Address: [address] [place] [address] Performed By: #### 5 7021-8 ####[facility]ATORYCLIA [id number] [address] [place] Eosinophils/100 WBC (Bld) 0.9 % Normal [facility] Comment on above: Order Comment: Speci men Type: BLOOD SPECIMENOrdering Facility: [facility] Address: [address] [place] [address] Performed By: #### 5 7021-8 ####[facility]ATORYCLIA [id number] [address] Erythrocyte distribution width (RBC) [Ratio] 15.9 % High 11.5-15.0 [facility] Comment on above: Order Comment: Speci men Type: BLOOD SPECIMENOrdering Facility: [facility] Address: [address] [place] [address] Performed By: #### 5 7021-8 ####[facility]ATORYCLIA [id number] [address] [place] Hematocrit (Bld) [Volume fraction] 26.6 % Low 36.0-46.0 [facility] Comment on above: Order Comment: Speci men Type: BLOOD SPECIMENOrdering Facility: [facility] Address: [address] [place], [place] [address], [place] [address] Performed By: #### 5 7021-8 ####[facility]ORATORYCLIA [id number] [place] [address] [place] Hemoglobin (Bld) [Mass/Vol] 8.8 g/dL Low 11.5-15.5 [facility] Comment on above: Order Comment: Speci men Type: BLOOD SPECIMENOrdering Facility: [facility] Address: [address] [place] [address] Performed By: #### 5 7021-8 ####[facility]ORATORYCLIA [id number] [place] [address] [place] Immature granulocytes (Bld) [#/Vol] 0.32 10*3/uL High <0.10 [facility] Comment on above: Order Comment: Speci men Type: BLOOD SPECIMENOrdering Facility: [facility] Address: [address] [place] [address] Performed By: #### 5 7021-8 ####[facility]ORATORYCLIA [id number] [place] [address] [place] Immature granulocytes/100 WBC (Bld) 1.4 % Normal [facility] Comment on above: Order Comment: Speci men Type: BLOOD SPECIMENOrdering Facility: [facility] Address: [address] [place] [address] Performed By: #### 5 7021-8 ####[facility]ORATORYCLIA [id number] [place] [address] [place] Lymphocytes (Bld) [#/Vol] 1.00 10*3/uL Normal 1.00-4.00 [facility] Comment on above: Order Comment: Speci men Type: BLOOD SPECIMENOrdering Facility: [facility] Address: [address] [place] [address] Performed By: #### 5 7021-8 ####[facility]ORATORYCLIA [id number] [place] [address] [place] Lymphocytes/100 WBC (Bld) 4.5 % Normal [facility] Comment on above: Order Comment: Speci men Type: BLOOD SPECIMENOrdering Facility: [facility] Address: [address] [place] [address] Performed By: #### 5 7021-8 ####[facility]ATORYCLIA [id number] [address] MCH (RBC) [Entitic mass] 28.3 pg Normal 26.0-34.0 [facility] Comment on above: Order Comment: Speci men Type: BLOOD SPECIMENOrdering Facility: [facility] Address: [address] [place] [address] Performed By: #### 5 7021-8 ####[facility]ATORYCLIA [id number] [place] [address] [place] MCHC (RBC) [Mass/Vol] 33.1 g/dL Normal 30.5-36.0 [facility] Comment on above: Order Comment: Speci men Type: BLOOD SPECIMENOrdering Facility: [facility] Address: [address] [place] [address] Performed By: #### 5 7021-8 ####[facility]ATORYCLIA [id number] [address] MCV (RBC) [Entitic vol] 85.5 fL Normal 80.0-100.0 [facility] Comment on above: Order Comment: Speci men Type: BLOOD SPECIMENOrdering Facility: [facility] Address: [address] [place] [address] Performed By: #### 5 7021-8 ####[facility]ORATORYCLIA [id number] [address] [place] Monocytes (Bld) [#/Vol] 1.18 10*3/uL High <0.87 [facility] Comment on above: Order Comment: Speci men Type: BLOOD SPECIMENOrdering Facility: [facility] Address: [address] [place] [address] Performed By: #### 5 7021-8 ####[facility]ATORYCLIA [id number] [address] Monocytes/100 WBC (Bld) 5.3 % Normal [facility] Comment on above: Order Comment: Speci men Type: BLOOD SPECIMENOrdering Facility: [facility] Address: [address] [place] [address] Performed By: #### 5 7021-8 ####[facility]ORATORYCLIA [id number] [address] [place] Neutrophils (Bld) [#/Vol] 19.49 10*3/uL High 1.45-7.50 [facility] Comment on above: Order Comment: Speci men Type: BLOOD SPECIMENOrdering Facility: [facility] Address: [address] [place] [address] Performed By: #### 5 7021-8 ####VILLARREAL LABORATORYCLIA [id number] [address] [place] Neutrophils/100 WBC (Bld) 87.6 % Normal [facility] Comment on above: Order Comment: Speci men Type: BLOOD SPECIMENOrdering Facility: [facility] Address: [address] [place] [address] Performed By: #### 5 7021-8 ####[facility] LABORATORYCLIA [id number] [place] [address] [place] Nucleated RBC (Bld) [#/Vol] 10*3/uL Normal <0.01 [facility] Comment on above: Order Comment: Speci men Type: BLOOD SPECIMENOrdering Facility: [facility] Address: [address] [place] [address] Performed By: #### 5 7021-8 ####[facility] LABORATORYCLIA [id number] [address] [place] Nucleated RBC/100 WBC (Bld) [Ratio] 0.0 /100 WBC Normal [facility] Comment on above: Order Comment: Speci men Type: BLOOD SPECIMENOrdering Facility: [facility] Address: [address] [place] [address] Performed By: #### 5 7021-8 ####[facility] LABORATORYCLIA [id number] [place] [address] [place] Platelet mean volume (Bld) [Entitic vol] 8.7 fL Low 9.0-12.7 [facility] Comment on above: Order Comment: Speci men Type: BLOOD SPECIMENOrdering Facility: [facility] Address: [address] [place] [address] Performed By: #### 5 7021-8 ####[facility] LABORATORYCLIA [id number] [address] [place] Platelets (Bld) [#/Vol] 435 10*3/uL High 150-400 [facility] Comment on above: Order Comment: Speci men Type: BLOOD SPECIMENOrdering Facility: [facility] Address: [address] [place] [address] Performed By: #### 5 7021-8 ####[facility] LABORATORYCLIA [id number] [place] [address] [place] RBC (Bld) [#/Vol] 3.11 10*6/uL Low 3.90-5.[address] [facility] Comment on above: Order Comment: Speci men Type: BLOOD SPECIMENOrdering Facility: [facility] Address: [address] [place] [address] Performed By: #### 5 7021-8 ####[facility] LABORATORYCLIA [id number] [place] [address] [place] WBC (Bld) [#/Vol] 22.25 10*3/uL High 3.70-11.00 [facility] Comment on above: Order Comment: Speci men Type: BLOOD SPECIMENOrdering Facility: [facility] Address: [address] [place] [address] Performed By: #### 5 7021-8 ####[facility] LABORATORYCLIA [id number] [address] [place] CONSULT PROGon 12-01-2024 CONSULT PROG [facility] CONSULT PROG [facility] CT ABD/PEL W IVCONon 025 CT ABD/PEL W IVCON Normal [facility] ECG COMPLETEon 12-01-2024 ECG COMPLETE Normal [facility] Hepatic function 2000 panelo n 12-01-2024 Albumin [Mass/Vol] 2.7 g/dL Low 3.9-4.9 [facility] Comment on above: Order Comment: Speci men Type: BLOOD SPECIMENOrdering Facility: [facility] Address: [address] [place] [address] Performed By: #### 1 9123-9, 23309-0, 05465-9, 06737-2, 45626-0 ####[facility] LABORATORYCLIA [id number] [address] STATES OF [facility] ALP [Catalytic activity/Vol] 79 U/L Normal 34-123 [facility] Comment on above: Order Comment: Speci men Type: BLOOD SPECIMENOrdering Facility: [facility] Address: [address] [place] [address] Performed By: #### 1 9123-9, 82783-9, 54405-0, 41534-3, 62737-5 ####[facility] LABORATORYCLIA [id number] [address] [place] ALT [Catalytic activity/Vol] U/L Low 7-38 [facility] Comment on above: Order Comment: Speci men Type: BLOOD SPECIMENOrdering Facility: [facility] Address: [address] [place] [address] Performed By: #### 1 9123-9, 50662-4, 52725-5, 27188-9, 46541-2 ####[facility] LABORATORYCLIA [id number] [address] [place] [facility] AST [Catalytic activity/Vol] 20 U/L Normal 13-35 [facility] Comment on above: Order Comment: Speci men Type: BLOOD SPECIMENOrdering Facility: [facility] Address: [address] [place] [address] Performed By: #### 1 9123-9, 10581-0, 87593-0, 35183-9, 32213-6 ####[facility] LABORATORYCLIA [id number] [address] Bilirubin [Mass/Vol] 0.2 mg/dL Normal 0.2-1.3 [facility] Comment on above: Order Comment: Speci men Type: BLOOD SPECIMENOrdering Facility: [facility] Address: [address] [place] [address] Performed By: #### 1 9123-9, 19461-2, 81506-7, 09616-8, 94356-3 ####[facility]ORATORYCLIA [id number] [place] [address] [place] Bilirubin.conjugated [Mass/Vol] mg/dL Normal <0.3 [facility] Comment on above: Order Comment: Speci men Type: BLOOD SPECIMENOrdering Facility: [facility] Address: [facility] [address] Performed By: #### 1 9123-9, 92538-5, 35926-0, 52455-3, 17923-1 ####[facility]ORATORYCLIA [id number] [address] [place] [facility] Protein [Mass/Vol] 5.9 g/dL Low 6.3-8.0 [facility] Comment on above: Order Comment: Speci men Type: BLOOD SPECIMENOrdering Facility: [facility] Address: [facility] [place] [address] Performed By: #### 1 9123-9, 01838-6, 22159-3, 69593-4, 47680-0 ####[facility]ORATORYCLIA [id number] [address] [place] MRI ANKLE WO IVCON LTon 11-14 MRI ANKLE WO IVCON LT Normal [facility] MRI FOOT/TOES WO IVCON LTon 12-01-2024 MRI FOOT/TOES WO IVCON LT Normal [facility] Magnesium SerPl-mCncon 12-01 Magnesium [Mass/Vol] 2.3 mg/dL Normal 1.7-2.3 [facility] Comment on above: Order Comment: Speci men Type: BLOOD SPECIMENOrdering Facility: [facility] Address: [address] [place] [address] Performed By: #### 1 9123-9, 58516-3, 55121-3, 47383-5, 17211-4 ####[facility]ORATORYCLIA [id number] [address] [place] NT-proBNP SerPl-mCncon 01-18 -2025 Natriuretic peptide.B prohormone N-Terminal [Mass/Vol] 1162 pg/mL High <450 [facility] Comment on above: Order Comment: Speci men Type: BLOOD SPECIMENOrdering Facility: [facility] Address: [address] [place] [address] Performed By: #### 1 9123-9, 49944-2, 51692-4, 53323-7, 44152-0 ####[facility] LABORATORYCLIA [id number] [address] [place] Procalcitonin SerPl-mCncon 0 12-01-2024 Procalcitonin [Mass/Vol] 0.24 ng/mL High <0.09 [facility] Comment on above: Order Comment: Speci men Type: BLOOD SPECIMENOrdering Facility: [facility] Address: [address] [place] [address] Result Comment: For a guided interpretation of test results, please visit the Change in Procalcitonin Calculator, [email or web address]. Performed By: #### 1 9123-9, 04620-0, 96094-5, 74635-5, 50753-6 ####[facility] LABORATORYCLIA [id number] [place] [address] [place] SEPSIS LACTATEon 12-01-2024 Lactate [Moles/Vol] 1.5 mmol/L Normal 0.5-2.[address] [facility] Comment on above: Order Comment: Speci men Type: BLOOD SPECIMENOrdering Facility: [facility] Address: [address] [place] [address] Performed By: #### S LACT ####[facility] LABORATORYCLIA [id number] [place] [address] [place] Sodium ?Tm Ur-sCncon 025 Sodium Unsp time (U) [Moles/Vol] 39 mmol/L Normal 14-216 [facility] Comment on above: Order Comment: Speci men Type: URINE SPECIMENOrdering Facility: [facility] Address: [address] [place] [address] Performed By: #### 3 5678-2 ####[facility] LABCLIA [id number] [address] [place] [address] [place] URINALYSIS, REFLEX MICROSCOP ICon 12-01-2024 Bacteria LM.HPF (Urine sed) [#/Area] Few Abnormal None Seen [facility] Comment on above: Order Comment: Speci men Type: URINE SPECIMENOrdering Facility: [facility] Address: [address] [place] [address] Performed By: #### L [id number] ####[facility] LABORATORYCLIA [id number] [place] [address] [place] Bilirubin Ql (U) Negative Normal Negative [facility] Comment on above: Order Comment: Speci men Type: URINE SPECIMENOrdering Facility: [facility] Address: [address] [place] [address] Performed By: #### L [id number] ####[facility] OHIOCLIA [id number] [address] [place] Clarity (Unsp spec) Clear Normal Clear [facility] Comment on above: Order Comment: Speci men Type: URINE SPECIMENOrdering Facility: [facility] Address: [address] [place] [address] Performed By: #### L [id number] ####[facility] LABORATORYCLIA [id number] [address] Color (U) Yellow Normal Yellow [facility] Comment on above: Order Comment: Speci men Type: URINE SPECIMENOrdering Facility: [facility] Address: [address] [place] [address] Performed By: #### L [id number] ####[facility] LABORATORYCLIA [id number] [address] [place] Epithelial cells LM.HPF (Urine sed) [#/Area] Few Normal [facility] Comment on above: Order Comment: Speci men Type: URINE SPECIMENOrdering Facility: [facility] Address: [address] [place] [address] Performed By: #### L [id number] ####[facility] LABORATORYCLIA [id number] [address] [place] Glucose Test strip (U) [Mass/Vol] Trace Abnormal Negative [facility] Comment on above: Order Comment: Speci men Type: URINE SPECIMENOrdering Facility: [facility] Address: [address] [place] [address] Performed By: #### L [id number] ####[facility] LABORATORYCLIA [id number] [address] Hemoglobin Ql (U) Negative Normal Negative [facility] Comment on above: Order Comment: Speci men Type: URINE SPECIMENOrdering Facility: [facility] Address: [address] [place] [address] Performed By: #### L [id number] ####[facility] LABORATORYCLIA [id number] [address] Ketones Ql (U) Trace Abnormal Negative [facility] Comment on above: Order Comment: Speci men Type: URINE SPECIMENOrdering Facility: [facility] Address: [address] [place] [address] Performed By: #### L [id number] ####[facility] LABORATORYCLIA [id number] [address] Leukocyte esterase Test strip Ql (U) Trace Abnormal Negative [facility] Comment on above: Order Comment: Speci men Type: URINE SPECIMENOrdering Facility: [facility] Address: [address] [place] [address] Performed By: #### L [id number] ####[facility] LABORATORYCLIA [id number] [address] Nitrite Ql (U) Negative Normal Negative [facility] Comment on above: Order Comment: Speci men Type: URINE SPECIMENOrdering Facility: [facility] Address: [address] [place] [address] Performed By: #### L [id number] ####[facility] LABORATORYCLIA [id number] [address] pH (U) 5.5 [pH] Normal 5.0-8.0 [facility] Comment on above: Order Comment: Speci men Type: URINE SPECIMENOrdering Facility: [facility] Address: [address] [place] [address] Performed By: #### L [id number] ####[facility] LABORATORYCLIA [id number] [address] Protein (U) [Mass/Vol] 2+ Abnormal Negative [facility] Comment on above: Order Comment: Speci men Type: URINE SPECIMENOrdering Facility: [facility] Address: [address] [place] [address] Performed By: #### L [id number] ####[facility] LABORATORYCLIA [id number] [address] [place] RBC LM.HPF (Urine sed) [#/Area] 0-3 /HPF Normal 0-3 /HPF [facility] Comment on above: Order Comment: Speci men Type: URINE SPECIMENOrdering Facility: [facility] Address: [address] [place] [address] Performed By: #### L [id number] ####[facility] LABORATORYCLIA [id number] [address] Specific gravity (U) [Rel density] 1.025 Normal 1.005-1.030 [facility] Comment on above: Order Comment: Speci men Type: URINE SPECIMENOrdering Facility: [facility] Address: [address] [place] [address] Performed By: #### L [id number] ####[facility] LABORATORYCLIA [id number] [address] Urobilinogen Ql (U) 0.2 EU/dL Normal 0.2-1.0 EU/dL [facility] Comment on above: Order Comment: Speci men Type: URINE SPECIMENOrdering Facility: [facility] Address: [address] [place] [address] Performed By: #### L [id number] ####[facility] LABORATORYCLIA [id number] [address] WBC LM.HPF (Urine sed) [#/Area] 6-10 /HPF Abnormal 0-5 /HPF [facility] Comment on above: Order Comment: Speci men Type: URINE SPECIMENOrdering Facility: [facility] Address: [address] [place] [address] Performed By: #### L [id number] ####[facility] LABORATORYCLIA [id number] [place] [address] [place] Yeast.budding LM.HPF (Urine sed) [#/Area] Few Abnormal None Seen [facility] Comment on above: Order Comment: Speci men Type: URINE SPECIMENOrdering Facility: [facility] Address: [address] [place] [address] Performed By: #### L [id number] ####[facility] LABORATORYCLIA [id number] [place] [address] [place] ALLIED HEALTHon 11-30-2024 ALLIED HEALTH Normal [facility] Bacteria Bld Culton 11-30-19 25 Bacteria identified Cx Nom (Bld) CULTURE, BLOOD: No growth 5 days Normal [facility] Comment on above: Performed By: #### 6 00-7 ####[facility] LABCLIA [id number] [place] [address] [place] Bacteria identified Cx Nom (Bld) CULTURE, BLOOD: No growth 5 days Normal [facility] Comment on above: Performed By: #### 6 00-7 ####[facility] LABCLIA [id number] [place] [address] [place] Basic metabolic 2000 panelon 11-30-2024 Anion gap [Moles/Vol] 12 mmol/L Normal 8-15 [facility] Comment on above: Order Comment: Speci men Type: BLOOD SPECIMENOrdering Facility: [facility] Address: [address] [place] [address] Performed By: #### 2 4321-2, 54576-3 ####[facility]ORATORYCLIA [id number] [place] [address] [place] Calcium [Mass/Vol] 9.1 mg/dL Normal 8.5-10.2 [facility] Comment on above: Order Comment: Speci men Type: BLOOD SPECIMENOrdering Facility: [facility] Address: [address] [place] [address] Performed By: #### 2 4321-2, ####[facility] LABORATORYCLIA [id number] [place] [address] [place] Chloride [Moles/Vol] 95 mmol/L Low 98-107 [facility] Comment on above: Order Comment: Specleroy meade Type: BLOOD SPECIMENOrdering Facility: [facility] Address: [address] [place] [address] Performed By: #### 2 4321-2, ####[facility] LABORATORYCLIA [id number] [place] [address] [place] CO2 [Moles/Vol] 25 mmol/L Normal 22-30 [facility] Comment on above: Order Comment: Katei halina Type: BLOOD SPECIMENOrdering Facility: [facility] Address: [address] [place] [address] Performed By: #### 2 4321-2, ####[facility] LABORATORYCLIA [id number] [place] [id number] [place] Creatinine [Mass/Vol] 0.86 mg/dL Normal 0.58-0.96 [facility] Comment on above: Order Comment: Fan meade Type: BLOOD SPECIMENOrdering Facility: [facility] Address: [address] [place] [address] Performed By: #### 2 4321-2, ####[facility] LABORATORYCLIA [id number] [address] Creatinine and Glomerular filtration rate.predicted panel (S/P/Bld) 65 mL/min/1.73m??? Normal >=60 [facility] Comment on above: Order Comment: Fan meade Type: BLOOD SPECIMENOrdering Facility: [facility] Address: [address] [place] [address] Result Comment: Hilda mated Glomerular Filtration Rate [...] reflect actual GFR. Performed By: #### 2 ####[facility] LABORATORYCLIA [id number] [place] [id number] [place] Glucose [Mass/Vol] 237 mg/dL High 74-99 [facility] Comment on above: Order Comment: Fan meade Type: BLOOD SPECIMENOrdering Facility: [facility] Address: [address] [place] [address] Result Comment: The [place] [employer] (ADA) provides guidance for cutoff [...] Standards of Medical Care in Diabetes 2016, [place] [employer]. Diabetes Care. 2016.39(Suppl 1). Performed By: #### 2 ####[facility] LABORATORYCLIA [id number] [place] [address] [place] Potassium [Moles/Vol] 4.2 mmol/L Normal 3.7-5.1 [facility] Comment on above: Order Comment: Fan meade Type: BLOOD SPECIMENOrdering Facility: [facility] Address: [address] [place] [address] Performed By: #### 2 4320-12, ####[facility] LABORATORYCLIA [id number] [place] [address] [place] Sodium [Moles/Vol] 132 mmol/L Low 136-144 [facility] Comment on above: Order Comment: Fan meade Type: BLOOD SPECIMENOrdering Facility: [facility] Address: [address] [place], [place] [address] Performed By: #### 2 4320-12, ####[facility] LABORATORYCLIA [id number] [place] [address] [place] Urea nitrogen [Mass/Vol] 26 mg/dL High 7-21 [facility] Comment on above: Order Comment: Speci men Type: BLOOD SPECIMENOrdering Facility: [facility] Address: [address] [place] [address] Performed By: #### 2 4321-2, 85672-0 ####[facility] LABORATORYCLIA [id number] [place] [address] [place] CASE MANAGEMon 11-30-2024 CASE MANAGEM Normal [facility] CASE MANAGEM Normal [facility] CBC W Auto Differential pane l (Bld)on 11-30-2024 Basophils (Bld) [#/Vol] 0.05 10*3/uL Normal <0.11 [facility] Comment on above: Order Comment: Speci men Type: BLOOD SPECIMENOrdering Facility: [facility] Address: [address] [place] [address] Performed By: #### 5 7021-8 ####[facility] LABORATORYCLIA [id number] [place] [address] [place] Basophils/100 WBC (Bld) 0.3 % Normal [facility] Comment on above: Order Comment: Speci men Type: BLOOD SPECIMENOrdering Facility: [facility] Address: [address] [place] [address] Performed By: #### 5 7021-8 ####[facility] LABORATORYCLIA [id number] [place] [address] [place] Differential cell count method Nom (Bld) Auto Normal [facility] Comment on above: Order Comment: Speci men Type: BLOOD SPECIMENOrdering Facility: [facility] Address: [address] [place] [address] Performed By: #### 5 7021-8 ####[facility] LABORATORYCLIA [id number] [place] [address] [place] Eosinophils (Bld) [#/Vol] 0.27 10*3/uL Normal <0.46 [facility] Comment on above: Order Comment: Speci men Type: BLOOD SPECIMENOrdering Facility: [facility] Address: [address] [place] [address] Performed By: #### 5 7021-8 ####[facility] LABORATORYCLIA [id number] [place] [address] [place] Eosinophils/100 WBC (Bld) 1.8 % Normal [facility] Comment on above: Order Comment: Speci men Type: BLOOD SPECIMENOrdering Facility: [facility] Address: [address] [place] [address] Performed By: #### 5 7021-8 ####[facility] LABORATORYCLIA [id number] [place] [address] [place] Erythrocyte distribution width (RBC) [Ratio] 15.6 % High 11.5-15.0 [facility] Comment on above: Order Comment: Speci men Type: BLOOD SPECIMENOrdering Facility: [facility] Address: [address] [place] [address] Performed By: #### 5 7021-8 ####[facility]ORATORYCLIA [id number] [place] [address] [place] Hematocrit (Bld) [Volume fraction] 29.9 % Low 36.0-46.0 [facility] Comment on above: Order Comment: Speci men Type: BLOOD SPECIMENOrdering Facility: [facility] Address: [address] [place] [address] Performed By: #### 5 7021-8 ####[facility] LABORATORYCLIA [id number] [place] [address] [place] Hemoglobin (Bld) [Mass/Vol] 9.9 g/dL Low 11.5-15.5 [facility] Comment on above: Order Comment: Speci men Type: BLOOD SPECIMENOrdering Facility: [facility] Address: [address] [place] [address] Performed By: #### 5 7021-8 ####[facility]ORATORYCLIA [id number] [place] [address] [place] Immature granulocytes (Bld) [#/Vol] 0.24 10*3/uL High <0.10 [facility] Comment on above: Order Comment: Speci men Type: BLOOD SPECIMENOrdering Facility: [facility] Address: [address] [place] [address] Performed By: #### 5 7021-8 ####[facility] LABORATORYCLIA [id number] [address] [place] Immature granulocytes/100 WBC (Bld) 1.6 % Normal [facility] Comment on above: Order Comment: Speci men Type: BLOOD SPECIMENOrdering Facility: [facility] Address: [address] [place] [address] Performed By: #### 5 7021-8 ####[facility] LABORATORYCLIA [id number] [place] [address] [place] Lymphocytes (Bld) [#/Vol] 0.92 10*3/uL Low 1.00-4.00 [facility] Comment on above: Order Comment: Speci men Type: BLOOD SPECIMENOrdering Facility: [facility] Address: [address] [place] [address] Performed By: #### 5 7021-8 ####[facility] LABORATORYCLIA [id number] [address] [place] [facility] Lymphocytes/100 WBC (Bld) 6.1 % Normal [facility] Comment on above: Order Comment: Speci men Type: BLOOD SPECIMENOrdering Facility: [facility] Address: [address] [place] [address] Performed By: #### 5 7021-8 ####[facility] LABORATORYCLIA [id number] [address] [place] MCH (RBC) [Entitic mass] 28.3 pg Normal 26.0-34.0 [facility] Comment on above: Order Comment: Speci men Type: BLOOD SPECIMENOrdering Facility: [facility] Address: [address] [place] [address] Performed By: #### 5 7021-8 ####[facility] LABORATORYCLIA [id number] [address] [place] MCHC (RBC) [Mass/Vol] 33.1 g/dL Normal 30.5-36.0 [facility] Comment on above: Order Comment: Speci men Type: BLOOD SPECIMENOrdering Facility: [facility] Address: [address] [place] [address] Performed By: #### 5 7021-8 ####[facility] LABORATORYCLIA [id number] [place] [address] [place] MCV (RBC) [Entitic vol] 85.4 fL Normal 80.0-100.0 [facility] Comment on above: Order Comment: Speci men Type: BLOOD SPECIMENOrdering Facility: [facility] Address: [address] [place] [address] Performed By: #### 5 7021-8 ####[facility] LABORATORYCLIA [id number] [place] [address] [place] Monocytes (Bld) [#/Vol] 0.99 10*3/uL High <0.87 [facility] Comment on above: Order Comment: Speci men Type: BLOOD SPECIMENOrdering Facility: [facility] Address: [address] [place] [address] Performed By: #### 5 7021-8 ####[facility] LABORATORYCLIA [id number] [address] [place] Monocytes/100 WBC (Bld) 6.6 % Normal [facility] Comment on above: Order Comment: Speci men Type: BLOOD SPECIMENOrdering Facility: [facility] Address: [address] [place] [address] Performed By: #### 5 7021-8 ####[facility]ILL[facility] LABORATORYCLIA [id number] [place] [address] [place] Neutrophils (Bld) [#/Vol] 12.52 10*3/uL High 1.45-7.50 [facility] Comment on above: Order Comment: Speci men Type: BLOOD SPECIMENOrdering Facility: [facility] Address: [address] [place] [address] Performed By: #### 5 7021-8 ####[facility] LABORATORYCLIA [id number] [address] [place] Neutrophils/100 WBC (Bld) 83.6 % Normal [facility] Comment on above: Order Comment: Speci men Type: BLOOD SPECIMENOrdering Facility: [facility] Address: [address] [place] [address] Performed By: #### 5 7021-8 ####[facility] LABORATORYCLIA [id number] [place] [address] [place] Nucleated RBC (Bld) [#/Vol] 10*3/uL Normal <0.01 [facility] Comment on above: Order Comment: Speci men Type: BLOOD SPECIMENOrdering Facility: [facility] Address: [address] [place] [address] Performed By: #### 5 7021-8 ####[facility] LABORATORYCLIA [id number] [address] Nucleated RBC/100 WBC (Bld) [Ratio] 0.0 /100 WBC Normal [facility] Comment on above: Order Comment: Speci men Type: BLOOD SPECIMENOrdering Facility: [facility] Address: [address] [place] [address] Performed By: #### 5 7021-8 ####[facility] LABORATORYCLIA [id number] [place] [address] [place] Platelet mean volume (Bld) [Entitic vol] 8.6 fL Low 9.0-12.7 [facility] Comment on above: Order Comment: Speci men Type: BLOOD SPECIMENOrdering Facility: [facility] Address: [address] [place] [address] Performed By: #### 5 7021-8 ####[facility] LABORATORYCLIA [id number] [place] [address] [place] Platelets (Bld) [#/Vol] 436 10*3/uL High 150-400 [facility] Comment on above: Order Comment: Speci men Type: BLOOD SPECIMENOrdering Facility: [facility] Address: [address] [place] [address] Performed By: #### 5 7021-8 ####VILLAR[facility] LABORATORYCLIA [id number] [place] [address] [place] RBC (Bld) [#/Vol] 3.50 10*6/uL Low 3.90-5.[address] [facility] Comment on above: Order Comment: Speci men Type: BLOOD SPECIMENOrdering Facility: [facility] Address: [facility] [place] [address] Performed By: #### 5 7021-8 ####[facility]ORATORYCLIA [id number] [address] [place] WBC (Bld) [#/Vol] 14.99 10*3/uL High 3.70-11.00 [facility] Comment on above: Order Comment: Speci men Type: BLOOD SPECIMENOrdering Facility: [facility] Address: [address] [place] [address] Performed By: #### 5 7021-8 ####[facility] LABORATORYCLIA [id number] [address] CONSULT PROGon 11-30-2024 CONSULT PROG Normal [facility] CONSULT PROG Normal [facility] Magnesium SerPl-mCncon 11-30 Magnesium [Mass/Vol] 1.6 mg/dL Low 1.7-2.3 [facility] Comment on above: Order Comment: Speci men Type: BLOOD SPECIMENOrdering Facility: [facility] Address: [address] [place] [address] Performed By: #### 2 4321-2, 70449-0 ####[facility]ORATORYCLIA [id number] [address] Urinalysis complete panel (U )on 11-30-2024 Bacteria LM.HPF (Urine sed) [#/Area] Few Abnormal None Seen [facility] Comment on above: Order Comment: Speci men Type: URINE SPECIMENOrdering Facility: [facility] Address: [address] [place] [address] Performed By: #### 2 4356-8 ####[facility] LABORATORYCLIA [id number] [address] Bilirubin Ql (U) Negative Normal Negative [facility] Comment on above: Order Comment: Speci men Type: URINE SPECIMENOrdering Facility: [facility] Address: [address] [place] [address] Performed By: #### 2 4356-8 ####VILLAR[facility] LABORATORYCLIA [id number] [address] Clarity (Unsp spec) Clear Normal Clear [facility] Comment on above: Order Comment: Speci men Type: URINE SPECIMENOrdering Facility: [facility] Address: [address] [place] [address] Performed By: #### 2 4356-8 ####[facility] LABORATORYCLIA [id number] [address] Color (U) Yellow Normal Yellow [facility] Comment on above: Order Comment: Speci men Type: URINE SPECIMENOrdering Facility: [facility] Address: [address] [place] [address] Result Comment: Urin e received in non-preservative tube. Interpret results with caution. To ensure optimal and accurate results, transfer urine to the BD Vacutainer Plus urine preservative tube. Performed By: #### 2 4356-8 ####[facility] LABORATORYCLIA [id number] [address] Epithelial cells LM.HPF (Urine sed) [#/Area] Few Normal [facility] Comment on above: Order Comment: Speci men Type: URINE SPECIMENOrdering Facility: [facility] Address: [address] [place] [address] Performed By: #### 2 4356-8 ####[facility] LABORATORYCLIA [id number] [address] Glucose Test strip (U) [Mass/Vol] 1+ Abnormal Negative [facility] Comment on above: Order Comment: Speci men Type: URINE SPECIMENOrdering Facility: [facility] Address: [address] [place] [address] Performed By: #### 2 4356-8 ####[facility] LABORATORYCLIA [id number] [address] Hemoglobin Ql (U) Negative Normal Negative [facility] Comment on above: Order Comment: Speci men Type: URINE SPECIMENOrdering Facility: [facility] Address: [address] [place] [address] Performed By: #### 2 4356-8 ####[facility] LABORATORYCLIA [id number] [address] Ketones Ql (U) Trace Abnormal Negative [facility] Comment on above: Order Comment: Speci men Type: URINE SPECIMENOrdering Facility: [facility] Address: [address] [place] [address] Performed By: #### 2 4356-8 ####[facility] LABORATORYCLIA [id number] [address] Leukocyte esterase Test strip Ql (U) Trace Abnormal Negative [facility] Comment on above: Order Comment: Speci men Type: URINE SPECIMENOrdering Facility: [facility] Address: [address] [place] [address] Performed By: #### 2 4356-8 ####[facility] LABORATORYCLIA [id number] [address] Nitrite Ql (U) Negative Normal Negative [facility] Comment on above: Order Comment: Speci men Type: URINE SPECIMENOrdering Facility: [facility] Address: [address] [place] [address] Performed By: #### 2 4356-8 ####[facility] LABORATORYCLIA [id number] [address] pH (U) 6.5 [pH] Normal 5.0-8.0 [facility] Comment on above: Order Comment: Speci men Type: URINE SPECIMENOrdering Facility: [facility] Address: [address] [place] [address] Performed By: #### 2 4356-8 ####[facility] LABORATORYCLIA [id number] [address] [place] Protein (U) [Mass/Vol] 1+ Abnormal Negative [facility] Comment on above: Order Comment: Speci men Type: URINE SPECIMENOrdering Facility: [facility] Address: [address] [place] [address] Performed By: #### 2 4356-8 ####[facility] LABORATORYCLIA [id number] [place] [address] RBC LM.HPF (Urine sed) [#/Area] 0-3 /HPF Normal 0-3 /HPF [facility] Comment on above: Order Comment: Speci men Type: URINE SPECIMENOrdering Facility: [facility] Address: [address] [place] [address] Performed By: #### 2 4356-8 ####[facility]ORATORYCLIA [id number] [address] Specific gravity (U) [Rel density] 1.010 Normal 1.005-1.030 [facility] Comment on above: Order Comment: Speci men Type: URINE SPECIMENOrdering Facility: [facility] Address: [address] [place] [address] Performed By: #### 2 4356-8 ####[facility]ORATORYCLIA [id number] [address] Urobilinogen Ql (U) 0.2 EU/dL Normal 0.2-1.0 EU/dL [facility] Comment on above: Order Comment: Speci men Type: URINE SPECIMENOrdering Facility: [facility] Address: [address] [place] [address] Performed By: #### 2 4356-8 ####[facility] LABORATORYCLIA [id number] [address] WBC LM.HPF (Urine sed) [#/Area] 0-5 /HPF Normal 0-5 /HPF [facility] Comment on above: Order Comment: Speci men Type: URINE SPECIMENOrdering Facility: [facility] Address: [address] [place] [address] Performed By: #### 2 4356-8 ####[facility] LABORATORYCLIA [id number] [address] Yeast.budding LM.HPF (Urine sed) [#/Area] Few Abnormal None Seen [facility] Comment on above: Order Comment: Speci men Type: URINE SPECIMENOrdering Facility: [facility] Address: [address] [place] [address] Performed By: #### 2 4356-8 ####[facility] LABORATORYCLIA [id number] [place] [address] [place] XR CHEST 1V FRONTAL PORTon 0 11-30-2024 XR CHEST 1V FRONTAL PORT Normal [facility] Basic metabolic 2000 panelon 11-29-2024 Anion gap [Moles/Vol] 13 mmol/L Normal 8-15 [facility] Comment on above: Order Comment: Speci men Type: BLOOD SPECIMENOrdering Facility: [facility] Address: [address] [place] [address] Performed By: #### 2 432-2, ####V[facility] LABORATORYCLIA [id number] [place] [address] [place] Calcium [Mass/Vol] 8.8 mg/dL Normal 8.5-10.2 [facility] Comment on above: Order Comment: Speci men Type: BLOOD SPECIMENOrdering Facility: [facility] Address: [address] [place] [address] Performed By: #### 2 432-2, ####[facility] LABORATORYCLIA [id number] [place] [address] [place] Chloride [Moles/Vol] 95 mmol/L Low 98-107 [facility] Comment on above: Order Comment: Speci men Type: BLOOD SPECIMENOrdering Facility: [facility] Address: [address] [place] [address] Performed By: #### 2 4321-2, ####[facility] LABORATORYCLIA [id number] [place] [id number] [place] CO2 [Moles/Vol] 25 mmol/L Normal 22-30 [facility] Comment on above: Order Comment: Speci men Type: BLOOD SPECIMENOrdering Facility: [facility] Address: [address] [place], [place] [address] Performed By: #### 2 432-2, ####[facility] LABORATORYCLIA [id number] [place] [address] [place] Creatinine [Mass/Vol] 0.80 mg/dL Normal 0.58-0.96 [facility] Comment on above: Order Comment: Speci men Type: BLOOD SPECIMENOrdering Facility: [facility] Address: [address] [place] [address] Performed By: #### 2 432-2, ####V[facility] LABORATORYCLIA [id number] [place] [address] [place] Creatinine and Glomerular filtration rate.predicted panel (S/P/Bld) 71 mL/min/1.73m??? Normal >=60 [facility] Comment on above: Order Comment: Fan meade Type: BLOOD SPECIMENOrdering Facility: [facility] Address: [address] [place] [address] Result Comment: Hilda mated Glomerular Filtration Rate [...] reflect actual GFR. Performed By: #### 2 432-, ####V[facility] LABORATORYCLIA [id number] [place] [address] [place] Glucose [Mass/Vol] 287 mg/dL High 74-99 [facility] Comment on above: Order Comment: aFn meade Type: BLOOD SPECIMENOrdering Facility: [facility] Address: [address] [place] [address] Result Comment: The [place] [employer] (ADA) provides guidance for cutoff [...] Standards of Medical Care in Diabetes 2016, [place] [employer]. Diabetes Care. 2016.39(Suppl 1). Performed By: #### 2 432-2, ####[facility] LABORATORYCLIA [id number] [place] [address] [place] Potassium [Moles/Vol] 4.1 mmol/L Normal 3.7-5.1 [facility] Comment on above: Order Comment: Speci men Type: BLOOD SPECIMENOrdering Facility: [facility] Address: [address] [place] [address] Performed By: #### 2 4321-2, ####VILL[facility] LABORATORYCLIA [id number] [place] [id number] [place] Sodium [Moles/Vol] 133 mmol/L Low 136-144 [facility] Comment on above: Order Comment: Speci men Type: BLOOD SPECIMENOrdering Facility: [facility] Address: [address] [place] [address] Performed By: #### 2 4321-2, ####VILL[facility] LABORATORYCLIA [id number] [place] [address] [place] Urea nitrogen [Mass/Vol] 30 mg/dL High 7-21 [facility] Comment on above: Order Comment: Speci men Type: BLOOD SPECIMENOrdering Facility: [facility] Address: [address] [place] [address] Performed By: #### 2 4321-2, ####[facility] LABORATORYCLIA [id number] [place] [id number] [place] CASE MANAGEMon 11-29-2024 CASE MANAGEM Normal [facility] CASE MANAGEM Normal [facility] CBC panel Auto (Bld)on 11-29 Erythrocyte distribution width (RBC) [Ratio] 15.2 % High 11.5-15.0 [facility] Comment on above: Order Comment: Speci men Type: BLOOD SPECIMENOrdering Facility: [facility] Address: [address] [place] [address] Performed By: #### 5 8410-2 ####[facility] LABORATORYCLIA [id number] [place] [address] [place] Hematocrit (Bld) [Volume fraction] 27.9 % Low 36.0-46.0 [facility] Comment on above: Order Comment: Speci men Type: BLOOD SPECIMENOrdering Facility: [facility] Address: [address] [place] [address] Performed By: #### 5 8410-2 ####[facility] LABORATORYCLIA [id number] [address] [place] Hemoglobin (Bld) [Mass/Vol] 9.3 g/dL Low 11.5-15.5 [facility] Comment on above: Order Comment: Speci men Type: BLOOD SPECIMENOrdering Facility: [facility] Address: [address] [place] [address] Performed By: #### 5 8410-2 ####[facility] LABORATORYCLIA [id number] [address] [place] [facility] MCH (RBC) [Entitic mass] 28.2 pg Normal 26.0-34.0 [facility] Comment on above: Order Comment: Speci men Type: BLOOD SPECIMENOrdering Facility: [facility] Address: [address] [place] [address] Performed By: #### 5 8410-2 ####[facility] LABORATORYCLIA [id number] [address] MCHC (RBC) [Mass/Vol] 33.3 g/dL Normal 30.5-36.0 [facility] Comment on above: Order Comment: Speci men Type: BLOOD SPECIMENOrdering Facility: [facility] Address: [address] [place] [address] Performed By: #### 5 8410-2 ####[facility] LABORATORYCLIA [id number] [address] MCV (RBC) [Entitic vol] 84.5 fL Normal 80.0-100.0 [facility] Comment on above: Order Comment: Speci men Type: BLOOD SPECIMENOrdering Facility: [facility] Address: [address] [place] [address] Performed By: #### 5 8410-2 ####[facility] LABORATORYCLIA [id number] [address] Nucleated RBC (Bld) [#/Vol] 10*3/uL Normal <0.01 [facility] Comment on above: Order Comment: Speci men Type: BLOOD SPECIMENOrdering Facility: [facility] Address: [facility] [place] [address] Performed By: #### 5 8410-2 ####[facility] LABORATORYCLIA [id number] [place] [address] [place] Platelet mean volume (Bld) [Entitic vol] 8.8 fL Low 9.0-12.7 [facility] Comment on above: Order Comment: Speci men Type: BLOOD SPECIMENOrdering Facility: [facility] Address: [address] [place] [address] Performed By: #### 5 8410-2 ####[facility] LABORATORYCLIA [id number] [place] [address] [place] Platelets (Bld) [#/Vol] 425 10*3/uL High 150-400 [facility] Comment on above: Order Comment: Speci men Type: BLOOD SPECIMENOrdering Facility: [facility] Address: [address] [place] [address] Performed By: #### 5 8410-2 ####[facility] LABORATORYCLIA [id number] [place] [address] [place] RBC (Bld) [#/Vol] 3.30 10*6/uL Low 3.90-5.[address] [facility] Comment on above: Order Comment: Speci men Type: BLOOD SPECIMENOrdering Facility: [facility] Address: [address] [place] [address] Performed By: #### 5 8410-2 ####[facility] LABORATORYCLIA [id number] [place] [address] [place] WBC (Bld) [#/Vol] 12.17 10*3/uL High 3.70-11.00 [facility] Comment on above: Order Comment: Speci men Type: BLOOD SPECIMENOrdering Facility: [facility] Address: [address] [place] [address] Performed By: #### 5 8410-2 ####[facility] LABORATORYCLIA [id number] [place] [address] [place] CONSULT PROGon 11-29-2024 CONSULT PROG Normal [facility] CONSULT PROG Normal [facility] Magnesium SerPl-mCncon 11-29 Magnesium [Mass/Vol] 1.4 mg/dL Low 1.7-2.3 [facility] Comment on above: Order Comment: Speci men Type: BLOOD SPECIMENOrdering Facility: [facility] Address: [address] [place] [address] Performed By: #### 2 4321-2, ####[facility] LABORATORYCLIA [id number] [place] [address] [place] Basic metabolic 2000 panelon 11-28-2024 Anion gap [Moles/Vol] 14 mmol/L Normal 8-15 [facility] Comment on above: Order Comment: Speci men Type: BLOOD SPECIMENOrdering Facility: [facility] Address: [address] [place] [address] Performed By: #### 2 4321-2, , 2776-11 ####[facility] LABORATORYCLIA [id number] [place] [address] [place] Calcium [Mass/Vol] 9.4 mg/dL Normal 8.5-10.2 [facility] Comment on above: Order Comment: Speci men Type: BLOOD SPECIMENOrdering Facility: [facility] Address: [address] [place] [address] Performed By: #### 2 4321-2, , 2776-11 ####[facility] LABORATORYCLIA [id number] [place] [address] [place] Chloride [Moles/Vol] 96 mmol/L Low 98-107 [facility] Comment on above: Order Comment: Speci men Type: BLOOD SPECIMENOrdering Facility: [facility] Address: [address] [place] [address] Performed By: #### 2 4321-2, , 2776-11 ####[facility] LABORATORYCLIA [id number] [place] [address] [place] CO2 [Moles/Vol] 25 mmol/L Normal 22-30 [facility] Comment on above: Order Comment: Fan meade Type: BLOOD SPECIMENOrdering Facility: [facility] Address: [address] [place] [id number] Performed By: #### 2 4321-2, , 2776-11 ####[facility]ORATORYCLIA [id number] [place] [address] [place] Creatinine [Mass/Vol] 0.80 mg/dL Normal 0.58-0.96 [facility] Comment on above: Order Comment: Specleroy men Type: BLOOD SPECIMENOrdering Facility: [facility] Address: [address] [place] [address] Performed By: #### 2 4321-2, , 2776-11 ####[facility]ORATORYCLIA [id number] [address] STATES OF [facility] Creatinine and Glomerular filtration rate.predicted panel (S/P/Bld) 71 mL/min/1.73m??? Normal >=60 [facility] Comment on above: Order Comment: Fan meade Type: BLOOD SPECIMENOrdering Facility: [facility] Address: [address] [place] [address] Result Comment: Hilda mated Glomerular Filtration Rate [...] Performed By: #### 2 4321-2, , 2776-11 ####[facility]ORATORYCLIA [id number] [place] [address] [place] Glucose [Mass/Vol] 149 mg/dL High 74-99 [facility] Comment on above: Order Comment: Fan halina Type: BLOOD SPECIMENOrdering Facility: [facility] Address: [address] [place] [address] Result Comment: The [place] [employer] (ADA) provides guidance for cutoff [...] Standards of Medical Care in Diabetes 2016, [place] [employer]. Diabetes Care. 2016.39(Suppl 1). Performed By: #### 2 4321-2, , 2776- ####[facility] LABORATORYCLIA [id number] [place] [address] [place] Potassium [Moles/Vol] 4.6 mmol/L Normal 3.7-5.1 [facility] Comment on above: Order Comment: Fan meade Type: BLOOD SPECIMENOrdering Facility: [facility] Address: [address] [place] [address] Performed By: #### 2 4321-2, , 2776-11 ####[facility] LABORATORYCLIA [id number] [address] STATES OF [facility] Sodium [Moles/Vol] 135 mmol/L Low 136-144 [facility] Comment on above: Order Comment: Fan meade Type: BLOOD SPECIMENOrdering Facility: [facility] Address: [address] [place] [address] Performed By: #### 2 4321-2, , 2776-11 ####[facility] LABORATORYCLIA [id number] [place] [id number] [place] Urea nitrogen [Mass/Vol] 28 mg/dL High 7-21 [facility] Comment on above: Order Comment: Fan meade Type: BLOOD SPECIMENOrdering Facility: [facility] Address: [facility] [place] [address] Performed By: #### 2 4321-2, , 2776-11 ####[facility] LABORATORYCLIA [id number] [place] [id number] [place] CASE MANAGENorth [facility] 11-28-2024 CASE MANAGEM Normal [facility] CBC W Auto Differential pane l (Bld)on 11-28-2024 Basophils (Bld) [#/Vol] 0.05 10*3/uL Normal <0.11 [facility] Comment on above: Order Comment: Speci men Type: BLOOD SPECIMENOrdering Facility: [facility] Address: [address] [place] [address] Performed By: #### 5 7021-8 ####[facility] LABORATORYCLIA [id number] [place] [address] [place] Basophils/100 WBC (Bld) 0.5 % Normal [facility] Comment on above: Order Comment: Speci men Type: BLOOD SPECIMENOrdering Facility: [facility] Address: [address] [place] [address] Performed By: #### 5 7021-8 ####[facility] LABORATORYCLIA [id number] [address] [place] Differential cell count method Nom (Bld) Auto Normal [facility] Comment on above: Order Comment: Speci men Type: BLOOD SPECIMENOrdering Facility: [facility] Address: [address] [place] [address] Performed By: #### 5 7021-8 ####[facility] LABORATORYCLIA [id number] [place] [address] [place] Eosinophils (Bld) [#/Vol] 0.43 10*3/uL Normal <0.46 [facility] Comment on above: Order Comment: Speci men Type: BLOOD SPECIMENOrdering Facility: [facility] Address: [address] [place] [address] Performed By: #### 5 7021-8 ####[facility] LABORATORYCLIA [id number] [place] [address] [place] Eosinophils/100 WBC (Bld) 3.9 % Normal [facility] Comment on above: Order Comment: Speci men Type: BLOOD SPECIMENOrdering Facility: [facility] Address: [address] [place] [address] Performed By: #### 5 7021-8 ####[facility] LABORATORYCLIA [id number] [address] [place] Erythrocyte distribution width (RBC) [Ratio] 15.3 % High 11.5-15.0 [facility] Comment on above: Order Comment: Speci men Type: BLOOD SPECIMENOrdering Facility: [facility] Address: [address] [place] [address] Performed By: #### 5 7021-8 ####[facility] LABORATORYCLIA [id number] [address] [place] Hematocrit (Bld) [Volume fraction] 32.2 % Low 36.0-46.0 [facility] Comment on above: Order Comment: Speci men Type: BLOOD SPECIMENOrdering Facility: [facility] Address: [address] [place] [address] Performed By: #### 5 7021-8 ####[facility] LABORATORYCLIA [id number] [address] [place] Hemoglobin (Bld) [Mass/Vol] 10.4 g/dL Low 11.5-15.5 [facility] Comment on above: Order Comment: Speci men Type: BLOOD SPECIMENOrdering Facility: [facility] [facility] Address: [address] [place] [address] Performed By: #### 5 7021-8 ####[facility] LABORATORYCLIA [id number] [address] [place] Immature granulocytes (Bld) [#/Vol] 0.17 10*3/uL High <0.10 [facility] Comment on above: Order Comment: Speci men Type: BLOOD SPECIMENOrdering Facility: [facility] Address: [address] [place] [address] Performed By: #### 5 7021-8 ####[facility] LABORATORYCLIA [id number] [address] Immature granulocytes/100 WBC (Bld) 1.6 % Normal [facility] Comment on above: Order Comment: Speci men Type: BLOOD SPECIMENOrdering Facility: [facility] Address: [address] [place] [address] Performed By: #### 5 7021-8 ####[facility] LABORATORYCLIA [id number] [address] [place] Lymphocytes (Bld) [#/Vol] 0.95 10*3/uL Low 1.00-4.00 [facility] Comment on above: Order Comment: Speci men Type: BLOOD SPECIMENOrdering Facility: [facility] Address: [address] [place] [address] Performed By: #### 5 7021-8 ####[facility] LABORATORYCLIA [id number] [address] Lymphocytes/100 WBC (Bld) 8.7 % Normal [facility] Comment on above: Order Comment: Speci men Type: BLOOD SPECIMENOrdering Facility: [facility] Address: [address] [place] [address] Performed By: #### 5 7021-8 ####[facility] LABORATORYCLIA [id number] [address] MCH (RBC) [Entitic mass] 27.7 pg Normal 26.0-34.0 [facility] Comment on above: Order Comment: Speci men Type: BLOOD SPECIMENOrdering Facility: [facility] Address: [address] [place] [address] Performed By: #### 5 7021-8 ####[facility] LABORATORYCLIA [id number] [address] MCHC (RBC) [Mass/Vol] 32.3 g/dL Normal 30.5-36.0 [facility] Comment on above: Order Comment: Speci men Type: BLOOD SPECIMENOrdering Facility: [facility] Address: [address] [place] [address] Performed By: #### 5 7021-8 ####[facility] LABORATORYCLIA [id number] [address] MCV (RBC) [Entitic vol] 85.6 fL Normal 80.0-100.0 [facility] Comment on above: Order Comment: Speci men Type: BLOOD SPECIMENOrdering Facility: [facility] Address: [address] [place] [address] Performed By: #### 5 7021-8 ####[facility] LABORATORYCLIA [id number] [place] [address] [place] Monocytes (Bld) [#/Vol] 0.89 10*3/uL High <0.87 [facility] Comment on above: Order Comment: Speci men Type: BLOOD SPECIMENOrdering Facility: [facility] Address: [address] [place] [address] Performed By: #### 5 7021-8 ####[facility] LABORATORYCLIA [id number] [address] [place] Monocytes/100 WBC (Bld) 8.1 % Normal [facility] Comment on above: Order Comment: Speci men Type: BLOOD SPECIMENOrdering Facility: [facility] Address: [address] [place] [address] Performed By: #### 5 7021-8 ####[facility] LABORATORYCLIA [id number] [place] [address] [place] Neutrophils (Bld) [#/Vol] 8.45 10*3/uL High 1.45-7.50 [facility] Comment on above: Order Comment: Speci men Type: BLOOD SPECIMENOrdering Facility: [facility] Address: [address] [place] [address] Performed By: #### 5 7021-8 ####[facility] LABORATORYCLIA [id number] [address] [place] Neutrophils/100 WBC (Bld) 77.2 % Normal [facility] Comment on above: Order Comment: Speci men Type: BLOOD SPECIMENOrdering Facility: [facility] Address: [address] [place] [address] Performed By: #### 5 7021-8 ####[facility] LABORATORYCLIA [id number] [place] [address] [place] Nucleated RBC (Bld) [#/Vol] 10*3/uL Normal <0.01 [facility] Comment on above: Order Comment: Speci men Type: BLOOD SPECIMENOrdering Facility: [facility] Address: [address] [place] [address] Performed By: #### 5 7021-8 ####[facility] LABORATORYCLIA [id number] [address] [place] Nucleated RBC/100 WBC (Bld) [Ratio] 0.0 /100 WBC Normal [facility] Comment on above: Order Comment: Speci men Type: BLOOD SPECIMENOrdering Facility: [facility] Address: [address] [place] [address] Performed By: #### 5 7021-8 ####[facility] LABORATORYCLIA [id number] [address] [place] Platelet mean volume (Bld) [Entitic vol] 9.0 fL Normal 9.0-12.7 [facility] Comment on above: Order Comment: Speci men Type: BLOOD SPECIMENOrdering Facility: [facility] Address: [address] [place] [address] Performed By: #### 5 7021-8 ####[facility] LABORATORYCLIA [id number] [address] [place] Platelets (Bld) [#/Vol] 413 10*3/uL High 150-400 [facility] Comment on above: Order Comment: Speci men Type: BLOOD SPECIMENOrdering Facility: [facility] Address: [facility] [place] [address] Performed By: #### 5 7021-8 ####[facility] LABORATORYCLIA [id number] [address] [place] RBC (Bld) [#/Vol] 3.76 10*6/uL Low 3.90-5.[address] [facility] Comment on above: Order Comment: Speci men Type: BLOOD SPECIMENOrdering Facility: [facility] Address: [address] [place] [address] Performed By: #### 5 7021-8 ####[facility] LABORATORYCLIA [id number] [address] [place] WBC (Bld) [#/Vol] 10.94 10*3/uL Normal 3.70-11.00 [facility] Comment on above: Order Comment: Speci men Type: BLOOD SPECIMENOrdering Facility: [facility] Address: [facility] [place] [id number] Performed By: #### 5 7021-8 ####[facility] LABORATORYCLIA [id number] [place] [id number] [place] CONSULT PROGon 11-28-2024 CONSULT PROG Normal [facility] CONSULT PROG Normal [facility] CONSULT PROG Normal [facility] Magnesium SerPl-mCncon 11-28 Magnesium [Mass/Vol] 1.9 mg/dL Normal 1.7-2.3 [facility] Comment on above: Order Comment: Speci men Type: BLOOD SPECIMENOrdering Facility: [facility] Address: [facility] [place] [id number] Performed By: #### 2 4321-2, 86944-4, 2777-1 ####[facility] LABORATORYCLIA [id number] [address] [place] Phosphate SerPl-mCncon 11-28 Phosphate [Mass/Vol] 3.4 mg/dL Normal 2.7-4.8 [facility] Comment on above: Order Comment: Speci men Type: BLOOD SPECIMENOrdering Facility: [facility] Address: [facility] [place] [id number] Performed By: #### 2 4321-2, 16176-1, 2777-1 ####[facility] LABORATORYCLIA [id number] [address] [place] THERAPY NTon 11-28-2024 THERAPY NT [facility] THERAPY NT Normal [facility] ALLIED HEALTHon 11-27-2024 ALLIED HEALTH [facility] ANES POSTPROC EVALon 025 ANES POSTPROC EVAL [facility] ANES PRE-OPon 11-27-2024 ANES PRE-OP [facility] Bacteria Spec Anaerobe Culto n 11-27-2024 Bacteria identified Anaer cx Nom (Unsp spec) Negative [facility] Comment on above: Performed By: #### 6 35-3, 6462-6 ####[facility] LABCLIA [id number] [place] [id number] [place] Bacteria Wnd Culton 11-27-19 25 Bacteria identified Cx Nom (Wound) Abnormal [facility] Comment on above: Performed By: #### 6 35-3, 6462-6 ####[facility] LABCLIA [id number] [place] [id number] [place] Basic metabolic 2000 panelon 11-27-2024 Anion gap [Moles/Vol] 13 mmol/L Normal 8-15 [facility] Comment on above: Order Comment: Speci men Type: BLOOD SPECIMENOrdering Facility: [facility] Address: [address] [place] [address] Performed By: #### 2 4321-2, , 2776-11 ####[facility]ORATORYCLIA [id number] [place] [address] [place] Calcium [Mass/Vol] 9.0 mg/dL Normal 8.5-10.2 [facility] Comment on above: Order Comment: Speci men Type: BLOOD SPECIMENOrdering Facility: [facility] Address: [address] [place] [address] Performed By: #### 2 4321-2, , 2776-11 ####[facility] LABORATORYCLIA [id number] [place] [address] [place] Chloride [Moles/Vol] 94 mmol/L Low 98-107 [facility] Comment on above: Order Comment: Speci men Type: BLOOD SPECIMENOrdering Facility: [facility] Address: [address] [place] [address] Performed By: #### 2 4321-2, , 2776-11 ####[facility]ORATORYCLIA [id number] [place] [address] [place] CO2 [Moles/Vol] 25 mmol/L Normal 22-30 [facility] Comment on above: Order Comment: Speci men Type: BLOOD SPECIMENOrdering Facility: [facility] Address: [address] [place] [address] Performed By: #### 2 4321-2, , 2776-11 ####[facility] LABORATORYCLIA [id number] [place] [address] [place] Creatinine [Mass/Vol] 0.76 mg/dL Normal 0.58-0.96 [facility] Comment on above: Order Comment: Fan meade Type: BLOOD SPECIMENOrdering Facility: [facility] Address: [address] [place] [address] Performed By: #### 2 4321-2, , 2776-11 ####[facility]ORATORYCLIA [id number] [place] [address] [place] Creatinine and Glomerular filtration rate.predicted panel (S/P/Bld) 75 mL/min/1.73m??? Normal >=60 [facility] Comment on above: Order Comment: Fan meade Type: BLOOD SPECIMENOrdering Facility: [facility] Address: [address] [place] [address] Result Comment: Hilda mated Glomerular Filtration Rate [...] #### 2 4321-2, , 2776-11 ####[facility] LABORATORYCLIA [id number] [place] [address] [place] Glucose [Mass/Vol] 251 mg/dL High 74-99 [facility] Comment on above: Order Comment: Fan meade Type: BLOOD SPECIMENOrdering Facility: [facility] Address: [address] [place] [address] Result Comment: The [place] [employer] (ADA) provides guidance for cutoff [...] Standards of Medical Care in Diabetes 2016, [place] [employer]. Diabetes Care. 2016.39(Suppl 1). Performed By: #### 2 4321-2, , 2776-11 ####[facility] LABORATORYCLIA [id number] [place] [address] [place] Potassium [Moles/Vol] 3.6 mmol/L Low 3.7-5.1 [facility] Comment on above: Order Comment: Fan meade Type: BLOOD SPECIMENOrdering Facility: [facility] Address: [address] [place] [address] Performed By: #### 2 4321-2, , 2776-11 ####[facility] LABORATORYCLIA [id number] [address] STATES [facility] Sodium [Moles/Vol] 132 mmol/L Low 136-144 [facility] Comment on above: Order Comment: Fan meade Type: BLOOD SPECIMENOrdering Facility: [facility] Address: [address] [place] [address] Performed By: #### 2 4321-2, , 2776-11 ####[facility] LABORATORYCLIA [id number] [address] [place] Urea nitrogen [Mass/Vol] 29 mg/dL High 7-21 [facility] Comment on above: Order Comment: Fan meade Type: BLOOD SPECIMENOrdering Facility: [facility] Address: [address] [place] [address] Performed By: #### 2 4321-2, , 2776-11 ####[facility]ORATORYCLIA [id number] [address] [place] CASE MANAGEMon 11-27-2024 CASE MANAGEM Normal [facility] CBC panel Auto (Bld)on 11-27 Erythrocyte distribution width (RBC) [Ratio] 15.1 % High 11.5-15.0 [facility] Comment on above: Order Comment: Speci men Type: BLOOD SPECIMENOrdering Facility: [facility] Address: [address] [place] [address] Performed By: #### 5 8410-2 ####[facility] LABORATORYCLIA [id number] [address] Hematocrit (Bld) [Volume fraction] 29.3 % Low 36.0-46.0 [facility] Comment on above: Order Comment: Speci men Type: BLOOD SPECIMENOrdering Facility: [facility] Address: [address] [place] [address] Performed By: #### 5 8410-2 ####[facility] LABORATORYCLIA [id number] [address] Hemoglobin (Bld) [Mass/Vol] 9.9 g/dL Low 11.5-15.5 [facility] Comment on above: Order Comment: Speci men Type: BLOOD SPECIMENOrdering Facility: [facility] Address: [address] [place] [address] Performed By: #### 5 8410-2 ####[facility] LABORATORYCLIA [id number] [address] MCH (RBC) [Entitic mass] 28.2 pg Normal 26.0-34.0 [facility] Comment on above: Order Comment: Speci men Type: BLOOD SPECIMENOrdering Facility: [facility] Address: [address] [place] [address] Performed By: #### 5 8410-2 ####[facility] LABORATORYCLIA [id number] [address] MCHC (RBC) [Mass/Vol] 33.8 g/dL Normal 30.5-36.0 [facility] Comment on above: Order Comment: Speci men Type: BLOOD SPECIMENOrdering Facility: [facility] Address: [address] [place] [address] Performed By: #### 5 8410-2 ####[facility] LABORATORYCLIA [id number] [address] MCV (RBC) [Entitic vol] 83.5 fL Normal 80.0-100.0 [facility] Comment on above: Order Comment: Speci men Type: BLOOD SPECIMENOrdering Facility: [facility] Address: [address] [place] [address] Performed By: #### 5 8410-2 ####[facility] LABORATORYCLIA [id number] [place] [address] [place] Nucleated RBC (Bld) [#/Vol] 10*3/uL Normal <0.01 [facility] Comment on above: Order Comment: Speci men Type: BLOOD SPECIMENOrdering Facility: [facility] Address: [address] [place] [address] Performed By: #### 5 8410-2 ####[facility] LABORATORYCLIA [id number] [place] [address] [place] Platelet mean volume (Bld) [Entitic vol] 9.1 fL Normal 9.0-12.7 [facility] Comment on above: Order Comment: Speci men Type: BLOOD SPECIMENOrdering Facility: [facility] Address: [address] [place] [address] Performed By: #### 5 8410-2 ####[facility] LABORATORYCLIA [id number] [place] [address] [place] Platelets (Bld) [#/Vol] 383 10*3/uL Normal 150-400 [facility] Comment on above: Order Comment: Speci men Type: BLOOD SPECIMENOrdering Facility: [facility] Address: [address] [place] [address] Performed By: #### 5 8410-2 ####[facility] LABORATORYCLIA [id number] [place] [address] [place] RBC (Bld) [#/Vol] 3.51 10*6/uL Low 3.90-5.[address] [facility] Comment on above: Order Comment: Speci men Type: BLOOD SPECIMENOrdering Facility: [facility] Address: [address] [place] [address] Performed By: #### 5 8410-2 ####[facility] LABORATORYCLIA [id number] [place] [address] [place] WBC (Bld) [#/Vol] 11.65 10*3/uL High 3.70-11.00 [facility] Comment on above: Order Comment: Speci men Type: BLOOD SPECIMENOrdering Facility: [facility] Address: [address] [place] [address] Performed By: #### 5 8410-2 ####[facility]ORATORYCLIA [id number] [place] [id number] [facility] [place] CONSULT PROGon 11-27-2024 CONSULT PROG [facility] Magnesium SerPl[facility]27 Magnesium [Mass/Vol] 1.6 mg/dL Low 1.7-2.3 [facility] Comment on above: Order Comment: Speci men Type: BLOOD SPECIMENOrdering Facility: [facility] Address: [address] [place] [address] Performed By: #### 2 4321-2, 17090-5, 2777-1 ####[facility]ORATORYCLIA [id number] [address] [place] NUTRITIONon 11-27-2024 NUTRITION Normal [facility] OPERATIVE NOon 11-27-2024 OPERATIVE NO [facility] Phosphate SerPl-ncon 11-27 Phosphate [Mass/Vol] 3.7 mg/dL Normal 2.7-4.8 [facility] Comment on above: Order Comment: Speci men Type: BLOOD SPECIMENOrdering Facility: [facility] Address: [address] [place] [address] Performed By: #### 2 4321-2, 61072-9, 2777-1 ####[facility]ORATORYCLIA [id number] [place] [id number] [facility] [place] THERAPY NTon 11-27-2024 THERAPY NT Normal [facility] US ABD RIGHT UPPER QUADRANTo n 11-27-2024 US ABD RIGHT UPPER QUADRANT Normal [facility] US ABD SPLEEN -NBon 11-27-19 US ABD SPLEEN -NB [facility] Basic metabolic 2000 panelon 11-26-2024 Anion gap [Moles/Vol] 10 mmol/L Normal 8-15 [facility] Comment on above: Order Comment: Speci men Type: BLOOD SPECIMENOrdering Facility: [facility] Address: [address] [place] [place] [id number] Performed By: #### 2 4321-2, , 2776-11 ####[facility] LABORATORYCLIA [id number] [place] [address] [place] Calcium [Mass/Vol] 9.2 mg/dL Normal 8.5-10.2 [facility] Comment on above: Order Comment: Speci men Type: BLOOD SPECIMENOrdering Facility: [facility] Address: [address] [place] [address] Performed By: #### 2 4321-2, , 2776-11 ####[facility] LABORATORYCLIA [id number] [place] [address] [place] Chloride [Moles/Vol] 94 mmol/L Low 98-107 [facility] Comment on above: Order Comment: Speci men Type: BLOOD SPECIMENOrdering Facility: [facility] Address: [address] [place] [address] Performed By: #### 2 4321-2, , 2776-11 ####[facility] LABORATORYCLIA [id number] [place] [address] [place] CO2 [Moles/Vol] 28 mmol/L Normal 22-30 [facility] Comment on above: Order Comment: Speci men Type: BLOOD SPECIMENOrdering Facility: [facility] Address: [address] [facility] [place] [place] [address] Performed By: #### 2 4321-2, , 2776-11 ####[facility] LABORATORYCLIA [id number] [place] [address] [place] Creatinine [Mass/Vol] 0.98 mg/dL High 0.58-0.96 [facility] Comment on above: Order Comment: Speci men Type: BLOOD SPECIMENOrdering Facility: [facility] Address: [address] [place] [address] Performed By: #### 2 4321-2, , 2776-11 ####[facility] LABORATORYCLIA [id number] [place] [address] [place] Creatinine and Glomerular filtration rate.predicted panel (S/P/Bld) 56 mL/min/1.73m??? Low >=60 [facility] Comment on above: Order Comment: Fan meade Type: BLOOD SPECIMENOrdering Facility: [facility] Address: [address] [place] [address] Result Comment: Hilda mated Glomerular Filtration Rate [...] actual GFR. Performed By: #### 2 4321-2, 42260-6, 2776-11 ####[facility]ORATORYCLIA [id number] [place] [address] [place] Glucose [Mass/Vol] 244 mg/dL High 74-99 [facility] Comment on above: Order Comment: Fan meade Type: BLOOD SPECIMENOrdering Facility: [facility] Address: [address] [place] [address] Result Comment: The [place] [employer] (ADA) provides guidance for cutoff [...] Standards of Medical Care in Diabetes 2016, [place] [employer]. Diabetes Care. 2016.39(Suppl 1). Performed By: #### 2 4321-2, 45157-0, 2776-11 ####[facility]ORATORYCLIA [id number] [place] [address] [place] Potassium [Moles/Vol] 4.4 mmol/L Normal 3.7-5.1 [facility] Comment on above: Order Comment: Speci men Type: BLOOD SPECIMENOrdering Facility: [facility] Address: [address] [place] [address] Performed By: #### 2 4321-2, 87479-9, 2776-11 ####[facility] LABORATORYCLIA [id number] [place] [address] [place] Sodium [Moles/Vol] 132 mmol/L Low 136-144 [facility] Comment on above: Order Comment: Speci men Type: BLOOD SPECIMENOrdering Facility: [facility] Address: [address] [place] [address] Performed By: #### 2 4321-2, , 2776-11 ####[facility]ORATORYCLIA [id number] [place] [address] [place] Urea nitrogen [Mass/Vol] 37 mg/dL High 7-21 [facility] Comment on above: Order Comment: Speci men Type: BLOOD SPECIMENOrdering Facility: [facility] Address: [address] [place] [address] Performed By: #### 2 4321-2, , 2776-11 ####[facility]ORATORYCLIA [id number] [address] [place] CASE MANAGEMon 11-26-2024 CASE MANAGEM Normal [facility] CBC W Auto Differential pane l (Bld)on 11-26-2024 Basophils (Bld) [#/Vol] 0.04 10*3/uL Normal <0.11 [facility] Comment on above: Order Comment: Speci men Type: BLOOD SPECIMENOrdering Facility: [facility] Address: [address] [place] [address] Performed By: #### 5 7021-8 ####[facility]ORATORYCLIA [id number] [address] [place] Basophils/100 WBC (Bld) 0.4 % Normal [facility] Comment on above: Order Comment: Speci men Type: BLOOD SPECIMENOrdering Facility: [facility] Address: [address] [place] [address] Performed By: #### 5 7021-8 ####[facility]ORATORYCLIA [id number] [address] [place] Differential cell count method Nom (Bld) Auto Normal [facility] Comment on above: Order Comment: Speci men Type: BLOOD SPECIMENOrdering Facility: [facility] Address: [address] [place] [address] Performed By: #### 5 7021-8 ####[facility] LABORATORYCLIA [id number] [place] [address] [place] Eosinophils (Bld) [#/Vol] 0.41 10*3/uL Normal <0.46 [facility] Comment on above: Order Comment: Speci men Type: BLOOD SPECIMENOrdering Facility: [facility] Address: [address] [place] [address] Performed By: #### 5 7021-8 ####[facility] LABORATORYCLIA [id number] [address] Eosinophils/100 WBC (Bld) 3.9 % Normal [facility] Comment on above: Order Comment: Speci men Type: BLOOD SPECIMENOrdering Facility: [facility] Address: [address] [place] [address] Performed By: #### 5 7021-8 ####[facility] LABORATORYCLIA [id number] [address] [place] Erythrocyte distribution width (RBC) [Ratio] 14.9 % Normal 11.5-15.0 [facility] Comment on above: Order Comment: Speci men Type: BLOOD SPECIMENOrdering Facility: [facility] Address: [address] [place] [address] Performed By: #### 5 7021-8 ####[facility]ORATORYCLIA [id number] [address] [place] Hematocrit (Bld) [Volume fraction] 30.0 % Low 36.0-46.0 [facility] Comment on above: Order Comment: Speci men Type: BLOOD SPECIMENOrdering Facility: [facility] Address: [address] [place] [address] Performed By: #### 5 7021-8 ####[facility]ORATORYCLIA [id number] [place] [address] [place] Hemoglobin (Bld) [Mass/Vol] 10.1 g/dL Low 11.5-15.5 [facility] Comment on above: Order Comment: Speci men Type: BLOOD SPECIMENOrdering Facility: [facility] Address: [address] [place] [address] Performed By: #### 5 7021-8 ####[facility]ILL[facility] LABORATORYCLIA [id number] [place] [address] [place] Immature granulocytes (Bld) [#/Vol] 0.09 10*3/uL Normal <0.10 [facility] Comment on above: Order Comment: Speci men Type: BLOOD SPECIMENOrdering Facility: [facility] Address: [address] [place] [address] Performed By: #### 5 7021-8 ####[facility]ILLAR[facility]AL LABORATORYCLIA [id number] [address] [place] Immature granulocytes/100 WBC (Bld) 0.9 % Normal [facility] Comment on above: Order Comment: Speci men Type: BLOOD SPECIMENOrdering Facility: [facility] Address: [address] [place] [address] Performed By: #### 5 7021-8 ####[facility] LABORATORYCLIA [id number] [place] [address] [place] Lymphocytes (Bld) [#/Vol] 1.04 10*3/uL Normal 1.00-4.00 [facility] Comment on above: Order Comment: Speci men Type: BLOOD SPECIMENOrdering Facility: [facility] Address: [address] [place] [address] Performed By: #### 5 7021-8 ####[facility] LABORATORYCLIA [id number] [address] [place] Lymphocytes/100 WBC (Bld) 9.9 % Normal [facility] Comment on above: Order Comment: Speci men Type: BLOOD SPECIMENOrdering Facility: [facility] Address: [address] [place] [address] Performed By: #### 5 7021-8 ####[facility] LABORATORYCLIA [id number] [address] MCH (RBC) [Entitic mass] 28.1 pg Normal 26.0-34.0 [facility] Comment on above: Order Comment: Speci men Type: BLOOD SPECIMENOrdering Facility: [facility] Address: [address] [place] [address] Performed By: #### 5 7021-8 ####[facility] LABORATORYCLIA [id number] [address] [place] MCHC (RBC) [Mass/Vol] 33.7 g/dL Normal 30.5-36.0 [facility] Comment on above: Order Comment: Speci men Type: BLOOD SPECIMENOrdering Facility: [facility] Address: [address] [place] [address] Performed By: #### 5 7021-8 ####[facility] LABORATORYCLIA [id number] [address] MCV (RBC) [Entitic vol] 83.3 fL Normal 80.0-100.0 [facility] Comment on above: Order Comment: Speci men Type: BLOOD SPECIMENOrdering Facility: [facility] Address: [address] [place] [address] Performed By: #### 5 7021-8 ####[facility] LABORATORYCLIA [id number] [address] [place] Monocytes (Bld) [#/Vol] 0.93 10*3/uL High <0.87 [facility] Comment on above: Order Comment: Speci men Type: BLOOD SPECIMENOrdering Facility: [facility] Address: [address] [place] [address] Performed By: #### 5 7021-8 ####[facility] LABORATORYCLIA [id number] [address] Monocytes/100 WBC (Bld) 8.9 % Normal [facility] Comment on above: Order Comment: Speci men Type: BLOOD SPECIMENOrdering Facility: [facility] Address: [address] [place] [address] Performed By: #### 5 7021-8 ####[facility] LABORATORYCLIA [id number] [place] [address] [place] Neutrophils (Bld) [#/Vol] 7.97 10*3/uL High 1.45-7.50 [facility] Comment on above: Order Comment: Speci men Type: BLOOD SPECIMENOrdering Facility: [facility] Address: [address] [place] [address] Performed By: #### 5 7021-8 ####[facility] LABORATORYCLIA [id number] [address] [place] Neutrophils/100 WBC (Bld) 76.0 % Normal [facility] Comment on above: Order Comment: Speci men Type: BLOOD SPECIMENOrdering Facility: [facility] Address: [address] [place] [address] Performed By: #### 5 7021-8 ####[facility] LABORATORYCLIA [id number] [place] [address] [place] Nucleated RBC (Bld) [#/Vol] 10*3/uL Normal <0.01 [facility] Comment on above: Order Comment: Speci men Type: BLOOD SPECIMENOrdering Facility: [facility] Address: [address] [place] [address] Performed By: #### 5 7021-8 ####[facility] LABORATORYCLIA [id number] [address] Nucleated RBC/100 WBC (Bld) [Ratio] 0.0 /100 WBC Normal [facility] Comment on above: Order Comment: Speci men Type: BLOOD SPECIMENOrdering Facility: [facility] Address: [address] [place] [address] Performed By: #### 5 7021-8 ####[facility] LABORATORYCLIA [id number] [address] Platelet mean volume (Bld) [Entitic vol] 9.0 fL Normal 9.0-12.7 [facility] Comment on above: Order Comment: Speci men Type: BLOOD SPECIMENOrdering Facility: [facility] Address: [address] [place], [place] [address], [place] [address] Performed By: #### 5 7021-8 ####[facility] LABORATORYCLIA [id number] [address] [place] Platelets (Bld) [#/Vol] 381 10*3/uL Normal 150-400 [facility] Comment on above: Order Comment: Speci men Type: BLOOD SPECIMENOrdering Facility: [facility] Address: [address] [place] [address] Performed By: #### 5 7021-8 ####[facility] LABORATORYCLIA [id number] [address] [place] RBC (Bld) [#/Vol] 3.60 10*6/uL Low 3.90-5.[address] [facility] Comment on above: Order Comment: Speci men Type: BLOOD SPECIMENOrdering Facility: [facility] Address: [address] [place] [id number] Performed By: #### 5 7021-8 ####[facility] LABORATORYCLIA [id number] [address] [place] WBC (Bld) [#/Vol] 10.48 10*3/uL Normal 3.70-11.00 [facility] Comment on above: Order Comment: Speci men Type: BLOOD SPECIMENOrdering Facility: [facility] Address: [address] [place] [address] Performed By: #### 5 7021-8 ####[facility] LABORATORYCLIA [id number] [place] [id number] [facility] [place] CNPNon 11-26-2024 CNPN Telephone (HEMAST) YUSUF MEDINA ([id number]) 1935 [facility] Date Time Provider Department 11/26/24 [facility] During your visit today, we recorded the following information about you: Sue Urbina 11/26/2024 9:54 AM Signed Spoke w/ pt behavioral health associate, Demetria. Pt is still inpatient. When she is discharged she will be sent to a rehab and will not be able to make appts. Any time soon. Please advise for further requirements. Grupo Mendez MD 11/26/2024 5:[address] Mendez reviewed labs from [facility]. Dr. Mendez recommended for patient to be seen around mid Dec 2024 as hem/onc follow-up. Grupo Mendez MD November 26, 2024 5:33 PM Allergies As of Date: 11/26/2024 (No Known Allergies) Date Reviewed: 11/26/2024 Reviewed by: Renetta Monge RN - Fully Assessed Reason for Visit: Appointment [186] Prescriptions as of 11/26/2024 - meloxicam (MOBIC) 15 mg tablet TAKE 1 TABLET BY MOUTH ONCE DAILY NEEDED FOR PAIN. DO NOT COMBINE WITH DICLOFENAC GEL - traZODone (DESYREL) 50 mg tablet Take 1 tablet by mouth at bedtime as needed for sedation. - blood sugar diagnostic ([employer] CorporationTOUCH ULTRA TEST) test strip Test blood sugar [...] patient by: CAREGIVER José Miguel Swanson [facility] Problem List As Of Date 11/26/2024 Noted [...] (capsule) sprain (more content not included)... Normal [facility] CONSULT PROGon 11-26-2024 CONSULT PROG [facility] CONSULT PROG [facility] CONSULT PROG [facility] CT ABD/PEL WO IVCONon 2024 CT ABD/PEL WO IVCON [facility] Lipase SerPl-cCncon 11-26-19 25 Lipase [Catalytic activity/Vol] 22 U/L Normal 16-61 [facility] Comment on above: Order Comment: Speci men Type: BLOOD SPECIMENOrdering Facility: [facility] Address: [address] [place] [address] Performed By: #### 3 040-3 ####[facility] LABORATORYCLIA [id number] [place] [address] [facility] [place] Magnesium SerPl-mCncon 11-26 Magnesium [Mass/Vol] 2.0 mg/dL Normal 1.7-2.3 [facility] Comment on above: Order Comment: Speci men Type: BLOOD SPECIMENOrdering Facility: [facility] Address: [address] [place] [address] Performed By: #### 2 4321-2, 90772-6, 2777-1 ####[facility] LABORATORYCLIA [id number] [address] OF [facility] NURSING PROGon 11-26-2024 NURSING PROG Normal [facility] Phosphate SerPl-mCncon 11-26 Phosphate [Mass/Vol] 3.0 mg/dL Normal 2.7-4.8 [facility] Comment on above: Order Comment: Speci men Type: BLOOD SPECIMENOrdering Facility: [facility] Address: [address] [place] [address] Performed By: #### 2 4321-2, 52253-9, 2777-1 ####[facility] LABORATORYCLIA [id number] [place] [id number] [place] Basic metabolic 2000 panelon 11-25-2024 Anion gap [Moles/Vol] 12 mmol/L Normal 8-15 [facility] Comment on above: Order Comment: Speci men Type: BLOOD SPECIMENOrdering Facility: [facility] Address: [address] [place] [address] Performed By: #### 2 4321-2, ####[facility] LABORATORYCLIA [id number] [place] [address] [place] Calcium [Mass/Vol] 8.9 mg/dL Normal 8.5-10.2 [facility] Comment on above: Order Comment: Speci men Type: BLOOD SPECIMENOrdering Facility: [facility] Address: [address] [place] [address] Performed By: #### 2 4321-2, ####[facility] LABORATORYCLIA [id number] [place] [address] [place] Chloride [Moles/Vol] 94 mmol/L Low 98-107 [facility] Comment on above: Order Comment: Speci men Type: BLOOD SPECIMENOrdering Facility: [facility] Address: [address] [place] [address] Performed By: #### 2 4321-2, ####[facility] LABORATORYCLIA [id number] [place] [address] [place] CO2 [Moles/Vol] 24 mmol/L Normal 22-30 [facility] Comment on above: Order Comment: Speci men Type: BLOOD SPECIMENOrdering Facility: [facility] Address: [address] [place] [address] Performed By: #### 2 4321-2, ####[facility] LABORATORYCLIA [id number] [place] [address] [place] Creatinine [Mass/Vol] 0.79 mg/dL Normal 0.58-0.96 [facility] Comment on above: Order Comment: Speci men Type: BLOOD SPECIMENOrdering Facility: [facility] Address: [address] [place] [address] Performed By: #### 2 432-2, ####[facility] LABORATORYCLIA [id number] [place] [address] [facility] [place] Creatinine and Glomerular filtration rate.predicted panel (S/P/Bld) 72 mL/min/1.73m??? Normal >=60 [facility] Comment on above: Order Comment: Speci men Type: BLOOD SPECIMENOrdering Facility: [facility] Address: [address] [place] [address] Result Comment: Hilda mated Glomerular Filtration Rate [...] actual GFR. Performed By: #### 2 43211-15, ####[facility] LABORATORYCLIA [id number] [place] [address] [place] Glucose [Mass/Vol] 251 mg/dL High 74-99 [facility] Comment on above: Order Comment: Fan meade Type: BLOOD SPECIMENOrdering Facility: [facility] Address: [address] [place] [address] Result Comment: The [place] [employer] (ADA) provides guidance for cutoff [...] Standards of Medical Care in Diabetes 2016, [place] [employer]. Diabetes Care. 2016.39(Suppl 1). Performed By: #### 2 4320-12, ####[facility] LABORATORYCLIA [id number] [place] [address] [place] Potassium [Moles/Vol] 3.9 mmol/L Normal 3.7-5.1 [facility] Comment on above: Order Comment: Fan meade Type: BLOOD SPECIMENOrdering Facility: [facility] Address: [address] [place] [address] Performed By: #### 2 4320-12, ####[facility] LABORATORYCLIA [id number] [place] [address] [place] Sodium [Moles/Vol] 130 mmol/L Low 136-144 [facility] Comment on above: Order Comment: Fan meade Type: BLOOD SPECIMENOrdering Facility: [facility] Address: [address] [place] [address] Performed By: #### 2 4321-2, 37942-8 ####[facility] LABORATORYCLIA [id number] [address] STATES [facility] Urea nitrogen [Mass/Vol] 32 mg/dL High 7- [facility] Comment on above: Order Comment: Speci men Type: BLOOD SPECIMENOrdering Facility: [facility] Address: [address] [place] [address] Performed By: #### 2 4321-2, 69672-7 ####[facility] LABORATORYCLIA [id number] [place] [address] [place] CBC W Auto Differential pane l (Bld)on 11-25-2024 Basophils (Bld) [#/Vol] 0.05 10*3/uL Normal <0.11 [facility] Comment on above: Order Comment: Speci men Type: BLOOD SPECIMENOrdering Facility: [facility] Address: [address] [place] [address] Performed By: #### 5 7021-8 ####[facility] LABORATORYCLIA [id number] [place] [address] [place] Basophils/100 WBC (Bld) 0.4 % Normal [facility] Comment on above: Order Comment: Speci men Type: BLOOD SPECIMENOrdering Facility: [facility] Address: [address] [place] [address] Performed By: #### 5 7021-8 ####[facility] LABORATORYCLIA [id number] [address] Differential cell count method Nom (Bld) Auto Normal [facility] Comment on above: Order Comment: Speci men Type: BLOOD SPECIMENOrdering Facility: [facility] Address: [address] [place] [address] Performed By: #### 5 7021-8 ####[facility] LABORATORYCLIA [id number] [place] [address] [place] Eosinophils (Bld) [#/Vol] 0.11 10*3/uL Normal <0.46 [facility] Comment on above: Order Comment: Speci men Type: BLOOD SPECIMENOrdering Facility: [facility] Address: [address] [place] [address] Performed By: #### 5 7021-8 ####[facility] LABORATORYCLIA [id number] [address] [place] Eosinophils/100 WBC (Bld) 0.8 % Normal [facility] Comment on above: Order Comment: Speci men Type: BLOOD SPECIMENOrdering Facility: [facility] Address: [address] [place] [address] Performed By: #### 5 7021-8 ####[facility] LABORATORYCLIA [id number] [address] [place] Erythrocyte distribution width (RBC) [Ratio] 14.9 % Normal 11.5-15.0 [facility] Comment on above: Order Comment: Speci men Type: BLOOD SPECIMENOrdering Facility: [facility] Address: [address] [place] [address] Performed By: #### 5 7021-8 ####[facility] LABORATORYCLIA [id number] [address] [place] Hematocrit (Bld) [Volume fraction] 31.8 % Low 36.0-46.0 [facility] Comment on above: Order Comment: Speci men Type: BLOOD SPECIMENOrdering Facility: [facility] Address: [address] [place] [address] Performed By: #### 5 7021-8 ####[facility] LABORATORYCLIA [id number] [place] [address] [place] Hemoglobin (Bld) [Mass/Vol] 10.5 g/dL Low 11.5-15.5 [facility] Comment on above: Order Comment: Speci men Type: BLOOD SPECIMENOrdering Facility: [facility] Address: [address] [place] [address] Performed By: #### 5 7021-8 ####[facility] LABORATORYCLIA [id number] [address] [place] Immature granulocytes (Bld) [#/Vol] 0.09 10*3/uL Normal <0.10 [facility] Comment on above: Order Comment: Speci men Type: BLOOD SPECIMENOrdering Facility: [facility] Address: [address] [place] [address] Performed By: #### 5 7021-8 ####[facility] LABORATORYCLIA [id number] [address] Immature granulocytes/100 WBC (Bld) 0.6 % Normal [facility] Comment on above: Order Comment: Speci men Type: BLOOD SPECIMENOrdering Facility: [facility] Address: [address] [place] [address] Performed By: #### 5 7021-8 ####[facility] LABORATORYCLIA [id number] [address] [place] Lymphocytes (Bld) [#/Vol] 1.18 10*3/uL Normal 1.00-4.00 [facility] Comment on above: Order Comment: Speci men Type: BLOOD SPECIMENOrdering Facility: [facility] Address: [address] [place] [address] Performed By: #### 5 7021-8 ####[facility] LABORATORYCLIA [id number] [address] Lymphocytes/100 WBC (Bld) 8.5 % Normal [facility] Comment on above: Order Comment: Speci men Type: BLOOD SPECIMENOrdering Facility: [facility] Address: [address] [place] [address] Performed By: #### 5 7021-8 ####[facility] LABORATORYCLIA [id number] [address] MCH (RBC) [Entitic mass] 27.8 pg Normal 26.0-34.0 [facility] Comment on above: Order Comment: Speci men Type: BLOOD SPECIMENOrdering Facility: [facility] Address: [address] [place] [address] Performed By: #### 5 7021-8 ####[facility] LABORATORYCLIA [id number] [address] MCHC (RBC) [Mass/Vol] 33.0 g/dL Normal 30.5-36.0 [facility] Comment on above: Order Comment: Speci men Type: BLOOD SPECIMENOrdering Facility: [facility] Address: [address] [place] [address] Performed By: #### 5 7021-8 ####[facility] LABORATORYCLIA [id number] [place] [address] [place] MCV (RBC) [Entitic vol] 84.1 fL Normal 80.0-100.0 [facility] Comment on above: Order Comment: Speci men Type: BLOOD SPECIMENOrdering Facility: [facility] Address: [address] [place] [address] Performed By: #### 5 7021-8 ####[facility] LABORATORYCLIA [id number] [place] [address] [place] Monocytes (Bld) [#/Vol] 1.11 10*3/uL High <0.87 [facility] Comment on above: Order Comment: Speci men Type: BLOOD SPECIMENOrdering Facility: [facility] Address: [address] [place] [address] Performed By: #### 5 7021-8 ####[facility] LABORATORYCLIA [id number] [address] [place] Monocytes/100 WBC (Bld) 8.0 % Normal [facility] Comment on above: Order Comment: Speci men Type: BLOOD SPECIMENOrdering Facility: [facility] Address: [address] [place] [address] Performed By: #### 5 7021-8 ####[facility] LABORATORYCLIA [id number] [place] [address] [place] Neutrophils (Bld) [#/Vol] 11.41 10*3/uL High 1.45-7.50 [facility] Comment on above: Order Comment: Speci men Type: BLOOD SPECIMENOrdering Facility: [facility] Address: [address] [place] [address] Performed By: #### 5 7021-8 ####[facility] LABORATORYCLIA [id number] [address] [place] Neutrophils/100 WBC (Bld) 81.7 % Normal [facility] Comment on above: Order Comment: Speci men Type: BLOOD SPECIMENOrdering Facility: [facility] Address: [address] [place] [address] Performed By: #### 5 7021-8 ####[facility] LABORATORYCLIA [id number] [place] [address] [place] Nucleated RBC (Bld) [#/Vol] 10*3/uL Normal <0.01 [facility] Comment on above: Order Comment: Speci men Type: BLOOD SPECIMENOrdering Facility: [facility] Address: [address] [place] [address] Performed By: #### 5 7021-8 ####[facility] LABORATORYCLIA [id number] [address] Nucleated RBC/100 WBC (Bld) [Ratio] 0.0 /100 WBC Normal [facility] Comment on above: Order Comment: Speci men Type: BLOOD SPECIMENOrdering Facility: [facility] Address: [address] [place] [address] Performed By: #### 5 7021-8 ####[facility] LABORATORYCLIA [id number] [place] [address] [place] Platelet mean volume (Bld) [Entitic vol] 9.4 fL Normal 9.0-12.7 [facility] Comment on above: Order Comment: Speci men Type: BLOOD SPECIMENOrdering Facility: [facility] Address: [address] [place] [address] Performed By: #### 5 7021-8 ####[facility] LABORATORYCLIA [id number] [place] [address] [place] Platelets (Bld) [#/Vol] 358 10*3/uL Normal 150-400 [facility] Comment on above: Order Comment: Speci men Type: BLOOD SPECIMENOrdering Facility: [facility] Address: [address] [place] [address] Performed By: #### 5 7021-8 ####[facility] LABORATORYCLIA [id number] [place] [address] [place] RBC (Bld) [#/Vol] 3.78 10*6/uL Low 3.90-5.[address] [facility] Comment on above: Order Comment: Speci men Type: BLOOD SPECIMENOrdering Facility: [facility] Address: [address] [place] [address] Performed By: #### 5 7021-8 ####[facility] LABORATORYCLIA [id number] [place] [address] [place] [facility] WBC (Bld) [#/Vol] 13.95 10*3/uL High 3.70-11.00 [facility] Comment on above: Order Comment: Speci men Type: BLOOD SPECIMENOrdering Facility: [facility] Address: [address] [place] [address] Performed By: #### 5 7021-8 ####[facility]ORATORYCLIA [id number] [address] CONSULT PROGon 11-25-2024 CONSULT PRO Normal [facility] CONSULT PROG Normal [facility] Magnesium SerPl-mCncon 11-25 Magnesium [Mass/Vol] 1.1 mg/dL Low 1.7-2.3 [facility] Comment on above: Order Comment: Speci men Type: BLOOD SPECIMENOrdering Facility: [facility] Address: [address] [place] [address] Performed By: #### 2 4321-2, 82267-0 ####[facility] LABORATORYCLIA [id number] [place] [id number] [place] Basic metabolic 2000 panelon 11-24-2024 Anion gap [Moles/Vol] 14 mmol/L Normal 8-15 [facility] Comment on above: Order Comment: Speci men Type: BLOOD SPECIMENOrdering Facility: [facility] Address: [address] [place] [address] Performed By: #### 2 4321-2 ####[facility] LABORATORYCLIA [id number] [place] [address] [place] Calcium [Mass/Vol] 8.8 mg/dL Normal 8.5-10.2 [facility] Comment on above: Order Comment: Speci men Type: BLOOD SPECIMENOrdering Facility: [facility] Address: [address] [place] [address] Performed By: #### 2 4321-2 ####[facility] LABORATORYCLIA [id number] [address] Chloride [Moles/Vol] 95 mmol/L Low 98-107 [facility] Comment on above: Order Comment: Speci men Type: BLOOD SPECIMENOrdering Facility: [facility] Address: [address] [place] [address] Performed By: #### 2 4321-2 ####[facility] LABORATORYCLIA [id number] [place] [id number] [place] CO2 [Moles/Vol] 24 mmol/L Normal 22-30 [facility] Comment on above: Order Comment: Speci men Type: BLOOD SPECIMENOrdering Facility: [facility] Address: [address] [place] [address] Performed By: #### 2 4321-2 ####[facility] LABORATORYCLIA [id number] [address] STATES OF [facility] Creatinine [Mass/Vol] 0.92 mg/dL Normal 0.58-0.96 [facility] Comment on above: Order Comment: Speci men Type: BLOOD SPECIMENOrdering Facility: [facility] Address: [address] [place] [address] Performed By: #### 2 4321-2 ####[facility] LABORATORYCLIA [id number] [address] Creatinine and Glomerular filtration rate.predicted panel (S/P/Bld) 60 mL/min/1.73m??? Normal >=60 [facility] Comment on above: Order Comment: Speci men Type: BLOOD SPECIMENOrdering Facility: [facility] Address: [address] [place] [address] Result Comment: Hilda mated Glomerular Filtration Rate [...] Performed By: #### 2 4321-2 ####[facility] LABORATORYCLIA [id number] [place] [address] [place] Glucose [Mass/Vol] 202 mg/dL High 74-99 [facility] Comment on above: Order Comment: Fan meade Type: BLOOD SPECIMENOrdering Facility: [facility] Address: [address] [place] [address] Result Comment: The [place] [employer] (ADA) provides guidance for cutoff [...] Standards of Medical Care in Diabetes 2016, [place] [employer]. Diabetes Care. 2016.39(Suppl 1). Performed By: #### 2 4321-2 ####[facility] LABORATORYCLIA [id number] [place] [address] [place] Potassium [Moles/Vol] 4.0 mmol/L Normal 3.7-5.1 [facility] Comment on above: Order Comment: Fan meade Type: BLOOD SPECIMENOrdering Facility: [facility] Address: [address] [place] [address] Performed By: #### 2 4321-2 ####[facility]ORATORYCLIA [id number] [place] [id number] [place] Sodium [Moles/Vol] 133 mmol/L Low 136-144 [facility] Comment on above: Order Comment: Fan meade Type: BLOOD SPECIMENOrdering Facility: [facility] Address: [address] [place] [address] Performed By: #### 2 4321-2 ####[facility] LABORATORYCLIA [id number] [address] Urea nitrogen [Mass/Vol] 39 mg/dL High 7-21 [facility] Comment on above: Order Comment: Speci men Type: BLOOD SPECIMENOrdering Facility: [facility] Address: [address] [place] [address] Performed By: #### 2 4321-2 ####[facility] LABORATORYCLIA [id number] [address] [place] CBC panel Auto (Bld)on 11-24 Erythrocyte distribution width (RBC) [Ratio] 15.2 % High 11.5-15.0 [facility] Comment on above: Order Comment: Speci men Type: BLOOD SPECIMENOrdering Facility: [facility] Address: [address] [place] [address] Performed By: #### 5 8410-2 ####[facility] LABORATORYCLIA [id number] [address] [place] Hematocrit (Bld) [Volume fraction] 29.3 % Low 36.0-46.0 [facility] Comment on above: Order Comment: Speci men Type: BLOOD SPECIMENOrdering Facility: [facility] Address: [address] [place] [address] Performed By: #### 5 8410-2 ####[facility] LABORATORYCLIA [id number] [address] [place] Hemoglobin (Bld) [Mass/Vol] 9.7 g/dL Low 11.5-15.5 [facility] Comment on above: Order Comment: Speci men Type: BLOOD SPECIMENOrdering Facility: [facility] Address: [address] [place] [address] Performed By: #### 5 8410-2 ####[facility] LABORATORYCLIA [id number] [address] MCH (RBC) [Entitic mass] 27.8 pg Normal 26.0-34.0 [facility] Comment on above: Order Comment: Speci men Type: BLOOD SPECIMENOrdering Facility: [facility] Address: [address] [place] [address] Performed By: #### 5 8410-2 ####[facility] LABORATORYCLIA [id number] [address] [place] MCHC (RBC) [Mass/Vol] 33.1 g/dL Normal 30.5-36.0 [facility] Comment on above: Order Comment: Speci men Type: BLOOD SPECIMENOrdering Facility: [facility] Address: [address] [place] [address] Performed By: #### 5 8410-2 ####[facility] LABORATORYCLIA [id number] [place] [address] [place] MCV (RBC) [Entitic vol] 84.0 fL Normal 80.0-100.0 [facility] Comment on above: Order Comment: Speci men Type: BLOOD SPECIMENOrdering Facility: [facility] Address: [address] [place] [address] Performed By: #### 5 8410-2 ####[facility] LABORATORYCLIA [id number] [place] [address] [place] Nucleated RBC (Bld) [#/Vol] 10*3/uL Normal <0.01 [facility] Comment on above: Order Comment: Speci men Type: BLOOD SPECIMENOrdering Facility: [facility] Address: [address] [place] [address] Performed By: #### 5 8410-2 ####[facility] LABORATORYCLIA [id number] [address] [place] Platelet mean volume (Bld) [Entitic vol] 9.5 fL Normal 9.0-12.7 [facility] Comment on above: Order Comment: Speci men Type: BLOOD SPECIMENOrdering Facility: [facility] Address: [address] [place] [address] Performed By: #### 5 8410-2 ####[facility] LABORATORYCLIA [id number] [address] [place] Platelets (Bld) [#/Vol] 338 10*3/uL Normal 150-400 [facility] Comment on above: Order Comment: Speci men Type: BLOOD SPECIMENOrdering Facility: [facility] Address: [address] [place] [address] Performed By: #### 5 8410-2 ####[facility] LABORATORYCLIA [id number] [address] RBC (Bld) [#/Vol] 3.49 10*6/uL Low 3.90-5.[address] [facility] Comment on above: Order Comment: Speci men Type: BLOOD SPECIMENOrdering Facility: [facility] Address: [address] [place] [id number] Performed By: #### 5 8410-2 ####[facility] LABORATORYCLIA [id number] [address] WBC (Bld) [#/Vol] 12.48 10*3/uL High 3.70-11.00 [facility] Comment on above: Order Comment: Speci men Type: BLOOD SPECIMENOrdering Facility: [facility] Address: [address] [place], [place] [address] Performed By: #### 5 8410-2 ####[facility] LABORATORYCLIA [id number] [address] CONSULTon 11-24-2024 CONSULT [facility] CONSULT PROGon 11-24-2024 CONSULT PROG [facility] CONSULT PROG [facility] Vancomycin [place] SerPl-mCncon 11-24-2024 Vancomycin random [Mass/Vol] 11.6 ug/mL Normal 10.0-20.0 [facility] Comment on above: Order Comment: Speci men Type: BLOOD SPECIMENOrdering Facility: [facility] Address: [address] [place] [phone] Result Comment: Refe rence ranges and high/low indicator flags are provided as general guidelines only. The treating physician must determine appropriate target levels/dosing based on the specific clinical situation. Performed By: #### 4 091-5 ####[facility] LABORATORYCLIA [id number] [place] [id number] [facility] Basic metabolic 2000 panelon 11-23-2024 Anion gap [Moles/Vol] 14 mmol/L Normal 8-15 [facility] Comment on above: Order Comment: Speci men Type: BLOOD SPECIMENOrdering Facility: [facility] Address: [address] [place] [address] Performed By: #### 2 4321-2 ####[facility]ORATORYCLIA [id number] [place] [address] [place] Calcium [Mass/Vol] 8.7 mg/dL Normal 8.5-10.2 [facility] Comment on above: Order Comment: Speci men Type: BLOOD SPECIMENOrdering Facility: [facility] Address: [address] [place] [address] Performed By: #### 2 4321-2 ####[facility] LABORATORYCLIA [id number] [place] [address] [place] Chloride [Moles/Vol] 98 mmol/L Normal 98-107 [facility] Comment on above: Order Comment: Speci men Type: BLOOD SPECIMENOrdering Facility: [facility] Address: [address] [place] [address] Performed By: #### 2 4321-2 ####[facility] LABORATORYCLIA [id number] [place] [address] [place] CO2 [Moles/Vol] 24 mmol/L Normal 22-30 [facility] Comment on above: Order Comment: Speci men Type: BLOOD SPECIMENOrdering Facility: [facility] Address: [address] [place] [address] Performed By: #### 2 4321-2 ####[facility] LABORATORYCLIA [id number] [address] [place] Creatinine [Mass/Vol] 0.96 mg/dL Normal 0.58-0.96 [facility] Comment on above: Order Comment: Speci men Type: BLOOD SPECIMENOrdering Facility: [facility] Address: [address] [place] [address] Performed By: #### 2 4321-2 ####[facility]ORATORYCLIA [id number] [address] [place] Creatinine and Glomerular filtration rate.predicted panel (S/P/Bld) 57 mL/min/1.73m??? Low >=60 [facility] Comment on above: Order Comment: Speci men Type: BLOOD SPECIMENOrdering Facility: [facility] Address: [address] [place] [address] Result Comment: Hilda mated Glomerular Filtration Rate [...] actual GFR. Performed By: #### 2 4321-2 ####[facility]ORATORYCLIA [id number] [place] [address] [place] Glucose [Mass/Vol] 193 mg/dL High 74-99 [facility] Comment on above: Order Comment: Fan meade Type: BLOOD SPECIMENOrdering Facility: [facility] Address: [address] [place] [address] Result Comment: The [place] [employer] (ADA) provides guidance for cutoff [...] Standards of Medical Care in Diabetes 2016, [place] [employer]. Diabetes Care. 2016.39(Suppl 1). Performed By: #### 2 4321-2 ####[facility]ORATORYCLIA [id number] [place] [id number] [place] Potassium [Moles/Vol] 4.1 mmol/L Normal 3.7-5.1 [facility] Comment on above: Order Comment: Fan meade Type: BLOOD SPECIMENOrdering Facility: [facility] Address: [address] [place] [phone] Performed By: #### 2 4321-2 ####[facility]ORATORYCLIA [id number] [place] [address] [place] Sodium [Moles/Vol] 136 mmol/L Normal 136-144 [facility] Comment on above: Order Comment: Speci men Type: BLOOD SPECIMENOrdering Facility: [facility] Address: [address] [place] [address] Performed By: #### 2 4321-2 ####[facility] LABORATORYCLIA [id number] [address] [place] [facility] Urea nitrogen [Mass/Vol] 31 mg/dL High 7-21 [facility] Comment on above: Order Comment: Speci men Type: BLOOD SPECIMENOrdering Facility: [facility] Address: [address] [place] [address] Performed By: #### 2 4321-2 ####[facility] LABORATORYCLIA [id number] [address] CASE MANAGEMon 11-23-2024 CASE MANAGEM Normal [facility] CBC panel Auto (Bld)on 11-23 Erythrocyte distribution width (RBC) [Ratio] 15.1 % High 11.5-15.0 [facility] Comment on above: Order Comment: Speci men Type: BLOOD SPECIMENOrdering Facility: [facility] Address: [address] [place] [address] Performed By: #### 5 8410-2 ####[facility] LABORATORYCLIA [id number] [address] [place] Hematocrit (Bld) [Volume fraction] 30.5 % Low 36.0-46.0 [facility] Comment on above: Order Comment: Speci men Type: BLOOD SPECIMENOrdering Facility: [facility] Address: [address] [facility] [place] [place] [address] Performed By: #### 5 8410-2 ####[facility]ORATORYCLIA [id number] [address] [place] Hemoglobin (Bld) [Mass/Vol] 10.2 g/dL Low 11.5-15.5 [facility] Comment on above: Order Comment: Speci men Type: BLOOD SPECIMENOrdering Facility: [facility] Address: [address] [place] [address] Performed By: #### 5 8410-2 ####[facility]ORATORYCLIA [id number] [address] MCH (RBC) [Entitic mass] 28.2 pg Normal 26.0-34.0 [facility] Comment on above: Order Comment: Speci men Type: BLOOD SPECIMENOrdering Facility: [facility] Address: [address] [place] [address] Performed By: #### 5 8410-2 ####[facility]ORATORYCLIA [id number] [address] [place] MCHC (RBC) [Mass/Vol] 33.4 g/dL Normal 30.5-36.0 [facility] Comment on above: Order Comment: Speci men Type: BLOOD SPECIMENOrdering Facility: [facility] Address: [address] [place] [address] Performed By: #### 5 8410-2 ####[facility]ORATORYCLIA [id number] [address] MCV (RBC) [Entitic vol] 84.3 fL Normal 80.0-100.0 [facility] Comment on above: Order Comment: Speci men Type: BLOOD SPECIMENOrdering Facility: [facility] Address: [address] [place] [address] Performed By: #### 5 8410-2 ####[facility]ORATORYCLIA [id number] [address] Nucleated RBC (Bld) [#/Vol] 10*3/uL Normal <0.01 [facility] Comment on above: Order Comment: Speci men Type: BLOOD SPECIMENOrdering Facility: [facility] Address: [address] [place] [address] Performed By: #### 5 8410-2 ####[facility]ORATORYCLIA [id number] [address] Platelet mean volume (Bld) [Entitic vol] 9.5 fL Normal 9.0-12.7 [facility] Comment on above: Order Comment: Speci men Type: BLOOD SPECIMENOrdering Facility: [facility] Address: [address] [place] [phone] Performed By: #### 5 8410-2 ####[facility]ORATORYCLIA [id number] [place] [id number] [facility] [place] Platelets (Bld) [#/Vol] 338 10*3/uL Normal 150-400 [facility] Comment on above: Order Comment: Speci men Type: BLOOD SPECIMENOrdering Facility: [facility] Address: [address] [place] [address] Performed By: #### 5 8410-2 ####[facility]ATORYCLIA [id number] [place] [address] [place] RBC (Bld) [#/Vol] 3.62 10*6/uL Low 3.90-5.[address] [facility] Comment on above: Order Comment: Speci men Type: BLOOD SPECIMENOrdering Facility: [facility] Address: [address] [place] [address] Performed By: #### 5 8410-2 ####[facility]ATORYCLIA [id number] [place] [address] [place] WBC (Bld) [#/Vol] 15.48 10*3/uL High 3.70-11.00 [facility] Comment on above: Order Comment: Speci men Type: BLOOD SPECIMENOrdering Facility: [facility] Address: [address] [place] [address] Performed By: #### 5 8410-2 ####[facility]ORATORYCLIA [id number] [place] [id number] [facility] [place] CONSULT PROGon 11-23-2024 CONSULT PROG Normal [facility] THERAPY NTon 11-23-2024 THERAPY NT Normal [facility] THERAPY NT Normal [facility] Bacteria Spec Anaerobe Culto n 11-22-2024 Bacteria identified Anaer cx Nom (Unsp spec) Negative [facility] Comment on above: Performed By: #### 6 462-6, 635-3 ####[facility] LABCLIA [id number] [facility] [id number] [address] [place] Bacteria Wnd Culton 11-22-19 25 Bacteria identified Cx Nom (Wound) ORGANISM ID: 1 Many Staphylococcus aureus Refer to specimen collected on 11/21/2024 at 10:34 PM [[id number]] GRAM STAIN: Rare Gram positive cocci Rare Polymorphonuclear leukocytes Abnormal [facility] Comment on above: Performed By: #### 6 462-6, 635-3 ####[facility] LABCLIA [id number] [address] [id number] [address] [place] Basic metabolic 2000 panelon 11-22-2024 Anion gap [Moles/Vol] 11 mmol/L Normal 8-15 [facility] Comment on above: Order Comment: Speci men Type: BLOOD SPECIMENOrdering Facility: [facility] Address: [address] [place] [address] Performed By: #### 2 4321-2 ####[facility]ORATORYCLIA [id number] [place] [address] [place] Calcium [Mass/Vol] 8.2 mg/dL Low 8.5-10.2 [facility] Comment on above: Order Comment: Speci men Type: BLOOD SPECIMENOrdering Facility: [facility] Address: [address] [place] [address] Performed By: #### 2 4321-2 ####[facility]ORATORYCLIA [id number] [place] [address] [place] Chloride [Moles/Vol] 97 mmol/L Low 98-107 [facility] Comment on above: Order Comment: Speci men Type: BLOOD SPECIMENOrdering Facility: [facility] Address: [address] [place] [address] Performed By: #### 2 4321-2 ####[facility] LABORATORYCLIA [id number] [place] [address] [place] CO2 [Moles/Vol] 25 mmol/L Normal 22-30 [facility] Comment on above: Order Comment: Speci men Type: BLOOD SPECIMENOrdering Facility: [facility] Address: [address] [place] [address] Performed By: #### 2 4321-2 ####[facility]ORATORYCLIA [id number] [address] [place] Creatinine [Mass/Vol] 0.89 mg/dL Normal 0.58-0.96 [facility] Comment on above: Order Comment: Fan meade Type: BLOOD SPECIMENOrdering Facility: [facility] Address: [address] [place] [address] Performed By: #### 2 4321-2 ####[facility]ATORYCLIA [id number] [address] Creatinine and Glomerular filtration rate.predicted panel (S/P/Bld) 62 mL/min/1.73m??? Normal >=60 [facility] Comment on above: Order Comment: Fan meade Type: BLOOD SPECIMENOrdering Facility: [facility] Address: [address] [place] [address] Result Comment: Hilda mated Glomerular Filtration Rate [...] actual GFR. Performed By: #### 2 4321-2 ####[facility]ORATORYCLIA [id number] [address] [place] Glucose [Mass/Vol] 291 mg/dL High 74-99 [facility] Comment on above: Order Comment: Fan meade Type: BLOOD SPECIMENOrdering Facility: [facility] Address: [address] [place] [address] Result Comment: The [place] [employer] (ADA) provides guidance for cutoff [...] Standards of Medical Care in Diabetes 2016, [place] [employer]. Diabetes Care. 2016.39(Suppl 1). Performed By: #### 2 4321-2 ####[facility] LABORATORYCLIA [id number] [place] [address] [place] Potassium [Moles/Vol] 4.1 mmol/L Normal 3.7-5.1 [facility] Comment on above: Order Comment: Fan meade Type: BLOOD SPECIMENOrdering Facility: [facility] Address: [address] [place] [address] Performed By: #### 2 4321-2 ####[facility]ATORYCLIA [id number] [address] [place] Sodium [Moles/Vol] 133 mmol/L Low 136-144 [facility] Comment on above: Order Comment: Fan meade Type: BLOOD SPECIMENOrdering Facility: [facility] Address: [address] [place] [address] Performed By: #### 2 4321-2 ####[facility]ORATORYCLIA [id number] [place] [id number] [place] Urea nitrogen [Mass/Vol] 30 mg/dL High 7-21 [facility] Comment on above: Order Comment: Fan meade Type: BLOOD SPECIMENOrdering Facility: [facility] Address: [address] [place] [address] Performed By: #### 2 4321-2 ####[facility]ORATORYCLIA [id number] [place] [id number] [place] CASE MGT INIT ASSESon 2024 CASE MGT INIT ASS Normal [facility] CBC panel Auto (Bld)on 11-22 Erythrocyte distribution width (RBC) [Ratio] 15.2 % High 11.5-15.0 [facility] Comment on above: Order Comment: Fan meade Type: BLOOD SPECIMENOrdering Facility: [facility] Address: [address] [place] [address] Performed By: #### 5 8410-2 ####[facility]ORATORYCLIA [id number] [place] [address] [place] Hematocrit (Bld) [Volume fraction] 28.5 % Low 36.0-46.0 [facility] Comment on above: Order Comment: Speci men Type: BLOOD SPECIMENOrdering Facility: [facility] Address: [address] [place] [address] Performed By: #### 5 8410-2 ####[facility]ORATORYCLIA [id number] [address] [place] Hemoglobin (Bld) [Mass/Vol] 9.3 g/dL Low 11.5-15.5 [facility] Comment on above: Order Comment: Speci men Type: BLOOD SPECIMENOrdering Facility: [facility] Address: [address] [place] [address] Performed By: #### 5 8410-2 ####[facility] LABORATORYCLIA [id number] [address] [place] MCH (RBC) [Entitic mass] 27.8 pg Normal 26.0-34.0 [facility] Comment on above: Order Comment: Speci men Type: BLOOD SPECIMENOrdering Facility: [facility] Address: [address] [place] [address] Performed By: #### 5 8410-2 ####[facility] LABORATORYCLIA [id number] [address] [place] MCHC (RBC) [Mass/Vol] 32.6 g/dL Normal 30.5-36.0 [facility] Comment on above: Order Comment: Speci men Type: BLOOD SPECIMENOrdering Facility: [facility] Address: [address] [place] [address] Performed By: #### 5 8410-2 ####[facility]ORATORYCLIA [id number] [address] [place] [facility] MCV (RBC) [Entitic vol] 85.3 fL Normal 80.0-100.0 [facility] Comment on above: Order Comment: Speci men Type: BLOOD SPECIMENOrdering Facility: [facility] Address: [address] [place] [address] Performed By: #### 5 8410-2 ####[facility] LABORATORYCLIA [id number] [place] [address] [place] Nucleated RBC (Bld) [#/Vol] 10*3/uL Normal <0.01 [facility] Comment on above: Order Comment: Speci men Type: BLOOD SPECIMENOrdering Facility: [facility] Address: [address] [place] [address] Performed By: #### 5 8410-2 ####[facility]ORATORYCLIA [id number] [place] [address] [place] Platelet mean volume (Bld) [Entitic vol] 9.5 fL Normal 9.0-12.7 [facility] Comment on above: Order Comment: Speci men Type: BLOOD SPECIMENOrdering Facility: [facility] Address: [address] [place] [address] Performed By: #### 5 8410-2 ####[facility]ORATORYCLIA [id number] [place] [address] [place] Platelets (Bld) [#/Vol] 294 10*3/uL Normal 150-400 [facility] Comment on above: Order Comment: Speci men Type: BLOOD SPECIMENOrdering Facility: [facility] Address: [address] [place] [address] Performed By: #### 5 8410-2 ####[facility]ORATORYCLIA [id number] [place] [address] [place] RBC (Bld) [#/Vol] 3.34 10*6/uL Low 3.90-5.[address] [facility] Comment on above: Order Comment: Speci men Type: BLOOD SPECIMENOrdering Facility: [facility] Address: [address] [place] [address] Performed By: #### 5 8410-2 ####[facility] LABORATORYCLIA [id number] [place] [id number] [place] WBC (Bld) [#/Vol] 15.66 10*3/uL High 3.70-11.00 [facility] Comment on above: Order Comment: Speci men Type: BLOOD SPECIMENOrdering Facility: [facility] Address: [address] [place] [address] Performed By: #### 5 8410-2 ####[facility]ORATORYCLIA [id number] [place] [address] [place] CONSULTon 11-22-2024 CONSULT Normal [facility] CONSULT PROGon 11-22-2024 CONSULT PROG [facility] ESR Westergren method (Bld) [Velocity]on 11-22-2024 ESR (Bld) [Velocity] 40 mm/h High 0-20 [facility] Comment on above: Order Comment: Speci men Type: BLOOD SPECIMENOrdering Facility: [facility] Address: [address] [place] [address] Performed By: #### 4 537-7 ####[facility] LABCLIA [id number] [place] [address] [place] HISTORY PHYSICALon HISTORY PHYSICAL Normal [facility] NUTRITIONon 11-22-2024 NUTRITION Normal [facility] SEPSIS LACTATE W/ REFLEX (SE COND)on 11-22-2024 Lactate [Moles/Vol] 1.9 mmol/L Normal 0.5-2.[address] [facility] Comment on above: Order Comment: Speci men Type: BLOOD SPECIMENOrdering Facility: [facility] Address: [address] [place] [address] Performed By: #### S LACT2 ####[facility]ORATORYCLIA [id number] [place] [id number] [place] US ANKLE BRACHIAL INDICESon 11-22-2024 US ANKLE BRACHIAL INDICES Normal [facility] Bacteria Bld Culton 11-21-19 25 Bacteria identified Cx Nom (Bld) CULTURE, BLOOD: No growth 5 days Normal [facility] Comment on above: Performed By: #### 6 00-7 ####[facility] LABCLIA [id number] [place] [address] [place] Bacteria identified Cx Nom (Bld) ORGANISM ID: 1 Gram positive diphtheroid-like bacilli Probable contaminant. Susceptibility testing will not be performed. Call lab within 72 hours to initiate workup if clinically indicated. GRAM STAIN: Gram positive bacilli Abnormal [facility] Comment on above: Performed By: #### 6 00-7 ####[facility] [facility] [id number] [address] [place] Bacteria Wnd Culton 11-21-19 25 Bacteria identified Cx Nom (Wound) Abnormal [facility] Comment on above: Performed By: #### 6 462-6 ####[facility] LABCLIA [id number] [place] [address] [place] CBC W Auto Differential pane l (Bld)on 11-21-2024 Basophils (Bld) [#/Vol] 0.04 10*3/uL Normal <0.11 [facility] Comment on above: Order Comment: Speci men Type: BLOOD SPECIMENOrdering Facility: [facility] Address: [address] [place] [address] Performed By: #### 5 5454-3 ####[facility] LABCLIA [id number] [address] [place]#### 78768-3 ####[facility]ORYCLIA [id number] [address] Basophils/100 WBC (Bld) 0.2 % Normal [facility] Comment on above: Order Comment: Speci men Type: BLOOD SPECIMENOrdering Facility: [facility] Address: [address] [place] [address] Performed By: #### 5 5454-3 ####[facility] LABCLIA [id number] [address] [place]#### 87654-2 ####[facility]ORYCLIA [id number] [address] Differential cell count method Nom (Bld) Auto Normal [facility] Comment on above: Order Comment: Speci men Type: BLOOD SPECIMENOrdering Facility: [facility] Address: [address] [place] [address] Performed By: #### 5 5454-3 ####[facility] LABCLIA [id number] [place] [address] [place]#### 84548-0 ####[facility] [id number] [address] Eosinophils (Bld) [#/Vol] 10*3/uL Normal <0.46 [facility] Comment on above: Order Comment: Speci men Type: BLOOD SPECIMENOrdering Facility: [facility] Address: [address] [place] [address] Performed By: #### 5 5454-3 ####[facility] LABCLIA [id number] [address] [place]#### 19835-1 ####[facility] [id number] [address] Eosinophils/100 WBC (Bld) 0.0 % Normal [facility] Comment on above: Order Comment: Speci men Type: BLOOD SPECIMENOrdering Facility: [facility] Address: [address] [place] [address] Performed By: #### 5 5454-3 ####[facility] LABCLIA [id number] [address]#### 62872-7 ####[facility] [id number] [address] [place] [facility] Erythrocyte distribution width (RBC) [Ratio] 15.0 % Normal 11.5-15.0 [facility] Comment on above: Order Comment: Speci men Type: BLOOD SPECIMENOrdering Facility: [facility] Address: [address] [place] [address] Performed By: #### 5 5454-3 ####[facility] LABCLIA [id number] [address] [place]#### 49825-6 ####[facility] [id number] [address] [place] Hematocrit (Bld) [Volume fraction] 32.3 % Low 36.0-46.0 [facility] Comment on above: Order Comment: Speci men Type: BLOOD SPECIMENOrdering Facility: [facility] Address: [address] [place] [address] Performed By: #### 5 5454-3 ####[facility] LABCLIA [id number] [place] [address] [place]#### 69595-4 ####[facility]ORYCLIA [id number] [place] [address] [place] Hemoglobin (Bld) [Mass/Vol] 10.9 g/dL Low 11.5-15.5 [facility] Comment on above: Order Comment: Speci men Type: BLOOD SPECIMENOrdering Facility: [facility] Address: [address] [place] [address] Performed By: #### 5 5454-3 ####[facility] LABCLIA [id number] [place] [address] [place]#### 17720-9 ####[facility]ORYCLIA [id number] [place] [address] [place] Immature granulocytes (Bld) [#/Vol] 0.13 10*3/uL High <0.10 [facility] Comment on above: Order Comment: Speci men Type: BLOOD SPECIMENOrdering Facility: [facility] Address: [address] [place] [address] Performed By: #### 5 5454-3 ####[facility] LABCLIA [id number] [place] [address] [place]#### 49839-3 ####[facility]ORYCLIA [id number] [address] [place] Immature granulocytes/100 WBC (Bld) 0.7 % Normal [facility] Comment on above: Order Comment: Speci men Type: BLOOD SPECIMENOrdering Facility: [facility] Address: [address] [place] [address] Performed By: #### 5 5454-3 ####[facility] LABCLIA [id number] [place] [address] [place] [facility] [place]#### 60432-4 ####[facility]ORYCLIA [id number] [address] Lymphocytes (Bld) [#/Vol] 0.76 10*3/uL Low 1.00-4.00 [facility] Comment on above: Order Comment: Speci men Type: BLOOD SPECIMENOrdering Facility: [facility] Address: [address] [place] [address] Performed By: #### 5 5454-3 ####[facility] LABCLIA [id number] [address] [place]#### 83897-1 ####[facility]ORYCLIA [id number] [address] Lymphocytes/100 WBC (Bld) 3.8 % Normal [facility] Comment on above: Order Comment: Speci men Type: BLOOD SPECIMENOrdering Facility: [facility] Address: [address] [place] [address] Performed By: #### 5 5454-3 ####[facility] LABCLIA [id number] [address] [place]#### 34274-2 ####[facility]ORYCLIA [id number] [address] [place] MCH (RBC) [Entitic mass] 28.5 pg Normal 26.0-34.0 [facility] Comment on above: Order Comment: Speci men Type: BLOOD SPECIMENOrdering Facility: [facility] Address: [address] [place] [address] Performed By: #### 5 5454-3 ####[facility] LABCLIA [id number] [place] [address] [place]#### 88508-5 ####[facility]ORYCLIA [id number] [address] [place] [facility] MCHC (RBC) [Mass/Vol] 33.7 g/dL Normal 30.5-36.0 [facility] Comment on above: Order Comment: Speci men Type: BLOOD SPECIMENOrdering Facility: [facility] Address: [address] [place] [address] Performed By: #### 5 5454-3 ####[facility] LABCLIA [id number] [address] [place]#### 43151-7 ####[facility]ORYCLIA [id number] [address] MCV (RBC) [Entitic vol] 84.3 fL Normal 80.0-100.0 [facility] Comment on above: Order Comment: Speci men Type: BLOOD SPECIMENOrdering Facility: [facility] Address: [address] [place] [address] Performed By: #### 5 5454-3 ####[facility] LABCLIA [id number] [address] [place]#### 96061-4 ####[facility]ORYCLIA [id number] [address] [place] Monocytes (Bld) [#/Vol] 0.94 10*3/uL High <0.87 [facility] Comment on above: Order Comment: Speci men Type: BLOOD SPECIMENOrdering Facility: [facility] Address: [address] [place] [address] Performed By: #### 5 5454-3 ####[facility] LABCLIA [id number] [place] [address] [place]#### 56084-1 ####[facility]ORYCLIA [id number] [address] [place] Monocytes/100 WBC (Bld) 4.7 % Normal [facility] Comment on above: Order Comment: Speci men Type: BLOOD SPECIMENOrdering Facility: [facility] Address: [address] [place] [address] Performed By: #### 5 5454-3 ####[facility] LABCLIA [id number] [place] [address] [place]#### 38959-0 ####[facility]ORYCLIA [id number] [place] [address] [place] Neutrophils (Bld) [#/Vol] 17.99 10*3/uL High 1.45-7.50 [facility] Comment on above: Order Comment: Speci men Type: BLOOD SPECIMENOrdering Facility: [facility] Address: [address] [place] [address] Performed By: #### 5 5454-3 ####[facility] LABCLIA [id number] [place] [address] [place]#### 79725-3 ####[facility]ORYCLIA [id number] [address] [place] Neutrophils/100 WBC (Bld) 90.6 % Normal [facility] Comment on above: Order Comment: Speci men Type: BLOOD SPECIMENOrdering Facility: [facility] Address: [address] [place] [address] Performed By: #### 5 5454-3 ####[facility] LABCLIA [id number] [place] [address] [place]#### 71724-2 ####[facility]ORYCLIA [id number] [place] [address] [place] Nucleated RBC (Bld) [#/Vol] 10*3/uL Normal <0.01 [facility] Comment on above: Order Comment: Speci men Type: BLOOD SPECIMENOrdering Facility: [facility] Address: [address] [place] [address] Performed By: #### 5 5454-3 ####[facility] LABCLIA [id number] [address] [place]#### 83263-9 ####[facility]CLIA [id number] [address] Nucleated RBC/100 WBC (Bld) [Ratio] 0.0 /100 WBC Normal [facility] Comment on above: Order Comment: Speci men Type: BLOOD SPECIMENOrdering Facility: [facility] Address: [address] [place] [address] Performed By: #### 5 5454-3 ####[facility] LABCLIA [id number] [address] [place]#### 21407-4 ####[facility]ORYCLIA [id number] [address] [place] [facility] Platelet mean volume (Bld) [Entitic vol] 9.0 fL Normal 9.0-12.7 [facility] Comment on above: Order Comment: Speci men Type: BLOOD SPECIMENOrdering Facility: [facility] Address: [address] [place] [address] Performed By: #### 5 5454-3 ####[facility] LABCLIA [id number] [address] [place]#### 45153-1 ####[facility]CLIA [id number] [address] [place] Platelets (Bld) [#/Vol] 326 10*3/uL Normal 150-400 [facility] Comment on above: Order Comment: Speci men Type: BLOOD SPECIMENOrdering Facility: [facility] Address: [address] [place] [address] Performed By: #### 5 5454-3 ####[facility] LABCLIA [id number] [place] [address] [place] [facility] [place]#### 88192-4 ####[facility]ORYCLIA [id number] [place] [address] [place] RBC (Bld) [#/Vol] 3.83 10*6/uL Low 3.90-5.[address] [facility] Comment on above: Order Comment: Speci men Type: BLOOD SPECIMENOrdering Facility: [facility] Address: [address] [place] [address] [place] [address] Performed By: #### 5 5454-3 ####[facility] LABCLIA [id number] [place] [address] [place]#### 83465-1 ####[facility]ORYCLIA [id number] [place] [address] [place] WBC (Bld) [#/Vol] 19.86 10*3/uL High 3.70-11.00 [facility] Comment on above: Order Comment: Speci men Type: BLOOD SPECIMENOrdering Facility: [facility] Address: [address] [place] [address] Performed By: #### 5 5454-3 ####[facility] LABCLIA [id number] [place] [address] [place]#### 94466-0 ####[facility]ORYCLIA [id number] [address] [place] CRP SerPl-mCncon 11-21-2024 CRP [Mass/Vol] 3.8 mg/dL High <0.9 [facility] Comment on above: Order Comment: Speci men Type: BLOOD SPECIMENOrdering Facility: [facility] Address: [address] [place] [address] [place] [address] Performed By: #### 2 4323-8, 21262-5, 1987-, 19674-1 ####[facility]ORYCLIA [id number] [place] [address] [place] Comprehensive metabolic 2000 panelon 11-21-2024 Albumin [Mass/Vol] 3.7 g/dL Low 3.9-4.9 [facility] Comment on above: Order Comment: Speci men Type: BLOOD SPECIMENOrdering Facility: [facility] Address: [address] [place] [address] Performed By: #### 2 4323-8, 77386-1, 1988-03, ####[facility]ORYCLIA [id number] [place] [address] [place] ALP [Catalytic activity/Vol] 90 U/L Normal 34-123 [facility] Comment on above: Order Comment: Speci men Type: BLOOD SPECIMENOrdering Facility: [facility] Address: [address] [place] [address] Performed By: #### 2 4323-8, 49006-0, 1988-03, ####[facility]ORYCLIA [id number] [place] [address] [place] [facility] ALT [Catalytic activity/Vol] 10 U/L Normal 7-38 [facility] Comment on above: Order Comment: Speci men Type: BLOOD SPECIMENOrdering Facility: [facility] Address: [address] [place] [address] Performed By: #### 2 4323-8, 81877-3, 1988-03, ####[facility]ORYCLIA [id number] [address] [place] [facility] Anion gap [Moles/Vol] 13 mmol/L Normal 8-15 [facility] Comment on above: Order Comment: Speci men Type: BLOOD SPECIMENOrdering Facility: [facility] Address: [address] [place] [address] Performed By: #### 2 4323-8, 13594-4, 1988-03, ####[facility]ORYCLIA [id number] [address] [place] [facility] AST [Catalytic activity/Vol] 14 U/L Normal 13-35 [facility] Comment on above: Order Comment: Speci men Type: BLOOD SPECIMENOrdering Facility: [facility] Address: [address] [place] [address] Performed By: #### 2 4323-8, 12057-7, 1988-03, 44110-7 ####[facility]ORYCLIA [id number] [place] [address] [place] Bilirubin [Mass/Vol] 0.2 mg/dL Normal 0.2-1.3 [facility] Comment on above: Order Comment: Speci men Type: BLOOD SPECIMENOrdering Facility: [facility] Address: [facility] [place] [address] Performed By: #### 2 4323-8, 10699-6, 1988-03, ####[facility]ORYCLIA [id number] [place] [address] [place] Calcium [Mass/Vol] 9.3 mg/dL Normal 8.5-10.2 [facility] Comment on above: Order Comment: Speci men Type: BLOOD SPECIMENOrdering Facility: [facility] Address: [address] [place] [address] Performed By: #### 2 4323-8, 93584-8, 1988-03, ####[facility]ORYCLIA [id number] [place] [address] [place] Chloride [Moles/Vol] 96 mmol/L Low 98-107 [facility] Comment on above: Order Comment: Speci men Type: BLOOD SPECIMENOrdering Facility: [facility] Address: [address] [place] [address] Performed By: #### 2 4323-8, , 1988-03, ####[facility]ORYCLIA [id number] [place] [address] [place] CO2 [Moles/Vol] 25 mmol/L Normal 22-30 [facility] Comment on above: Order Comment: Speci men Type: BLOOD SPECIMENOrdering Facility: [facility] Address: [address] [place] [address] Performed By: #### 2 4323-8, 32681-3, 1988-03, ####[facility]ORYCLIA [id number] [place] [address] [place] Creatinine [Mass/Vol] 1.02 mg/dL High 0.58-0.96 [facility] Comment on above: Order Comment: Speci men Type: BLOOD SPECIMENOrdering Facility: [facility] Address: [address] [place] [address] Performed By: #### 2 4323-8, 49850-6, 1988-03, ####[facility]ORYCLIA [id number] [place] [id number] [place] Creatinine and Glomerular filtration rate.predicted panel (S/P/Bld) 53 mL/min/1.73m??? Low >=60 [facility] Comment on above: Order Comment: Fan meade Type: BLOOD SPECIMENOrdering Facility: [facility] Address: [address] [place] [address] Result Comment: Hilda mated Glomerular Filtration Rate [...] actual GFR. Performed By: #### 2 4323-8, 38894-8, 1988-03, ####[facility]ORYCLIA [id number] [place] [id number] [place] Glucose [Mass/Vol] 314 mg/dL High 74-99 [facility] Comment on above: Order Comment: Fan meade Type: BLOOD SPECIMENOrdering Facility: [facility] Address: [address] [place] [address] Result Comment: The [place] Diabetes [employer] (ADA) provides guidance for cutoff [...] Standards of Medical Care in Diabetes 2016, [place] [employer]. Diabetes Care. 2016.39(Suppl 1). Performed By: #### 2 4323-8, 32892-3, 1988-03, ####[facility]ORYCLIA [id number] [place] [address] [place] Potassium [Moles/Vol] 4.7 mmol/L Normal 3.7-5.1 [facility] Comment on above: Order Comment: Speci men Type: BLOOD SPECIMENOrdering Facility: [facility] Address: [address] [place] [address] Performed By: #### 2 4323-8, 91229-1, 1988-03, 83278-2 ####[facility]ORYCLIA [id number] [place] [id number] [place] Protein [Mass/Vol] 6.4 g/dL Normal 6.3-8.0 [facility] Comment on above: Order Comment: Speci men Type: BLOOD SPECIMENOrdering Facility: [facility] Address: [address] [place] [address] Performed By: #### 2 4323-8, 15395-6, 1988-03, ####[facility]ORYCLIA [id number] [address] [place] Sodium [Moles/Vol] 134 mmol/L Low 136-144 [facility] Comment on above: Order Comment: Speci men Type: BLOOD SPECIMENOrdering Facility: [facility] Address: [address] [place] [address] Performed By: #### 2 4323-8, 73679-5, 1988-03, 73036-2 ####[facility]ORYCLIA [id number] [place] [id number] [place] Urea nitrogen [Mass/Vol] 37 mg/dL High 7-21 [facility] Comment on above: Order Comment: Speci men Type: BLOOD SPECIMENOrdering Facility: [facility] Address: [address] [place] [address] Performed By: #### 2 4323-8, 03163-5, 1988-03, ####[facility]ORYCLIA [id number] [place] [address] [place] ED PROV NOTEon 11-21-2024 ED PROV NOTE Normal [facility] ED Triage Noteon 11-21-2024 ED Triage Note Normal [facility] HbA1c (Bld)on 11-21-2024 Average glucose Estimated from glycated hemoglobin (Bld) [Mass/Vol] 252 mg/dL Normal [facility] Comment on above: Order Comment: Fan meade Type: BLOOD SPECIMENOrdering Facility: [facility] Address: [address] [place] [address] Result Comment: eAG: (Estimated average glucose) is a calculated value from HgbA1c and is pharmaceutical specialty representative of the average blood glucose level in the last 2-3 month period. Performed By: #### 5 5454-3 ####[facility] LABCLIA [id number] [address] [place]#### 52883-9 ####[facility]ITAL[facility] [id number] [address] [place] HbA1c (Bld) [Mass fraction] 10.4 % High 4.3-5.6 [facility] Comment on above: Order Comment: aFn meade Type: BLOOD SPECIMENOrdering Facility: [facility] Address: [address] [place] [address] Result Comment: [place] Diabetes Association guidelines indicate that patients with HgbA1c in the range 5.7-6.4% are at increased risk for development of diabetes, and intervention by lifestyle modification may be beneficial. HgbA1c greater or equal to 6.5% is considered diagnostic of diabetes. Performed By: #### 5 5454-3 ####[facility] LABCLIA [id number] [address] [place]#### 87513-7 ####[facility]ORYCLIA [id number] [address] [place] [facility] NT-proBNP [facility] 11-21 Natriuretic peptide.B prohormone N-Terminal [Mass/Vol] 1157 pg/mL High <450 [facility] Comment on above: Order Comment: Fan meade Type: BLOOD SPECIMENOrdering Facility: [facility] Address: [address] [place] [address] Performed By: #### 2 4323-8, 82750-2, 1988-03, ####[facility]ORYCLIA [id number] [address] Procalcitonin SerPl-mCncon 0 11-21-2024 Procalcitonin [Mass/Vol] 0.14 ng/mL High <0.09 [facility] Comment on above: Order Comment: Speci men Type: BLOOD SPECIMENOrdering Facility: [facility] Address: [address] [place] [address] Result Comment: For a guided interpretation of test results, please visit the Change in Procalcitonin Calculator, [email or web address]. Performed By: #### 2 4323-8, 46076-8, 1988-03, ####[facility]ORYCLIA [id number] [address] [place] SEPSIS LACTATE W/ REFLEX (IN ITIAL)on 11-21-2024 Lactate [Moles/Vol] 2.2 mmol/L High 0.5-2.[address] [facility] Comment on above: Order Comment: Speci men Type: BLOOD SPECIMENOrdering Facility: [facility] Address: [address] [place] [address] Performed By: #### S LACTR ####[facility]ORYCLIA [id number] [address] [place] XR ANKLE 3V AP/LAT/OBL RTon 11-21-2024 XR ANKLE 3V AP/LAT/OBL RT Normal [facility] CBC W Auto Differential pane l (Bld)on 11-19-2024 Basophils (Bld) [#/Vol] 0.05 10*3/uL Normal <0.11 [facility] Comment on above: Order Comment: Speci men Type: BLOOD SPECIMENOrdering Facility: [facility] Address: [address] [place] [address] Performed By: #### 5 7021-8 ####[facility] LABCLIA [id number] [address] [place] Basophils/100 WBC (Bld) 0.5 % Normal [facility] Comment on above: Order Comment: Speci men Type: BLOOD SPECIMENOrdering Facility: [facility] Address: [address] [place] [address] Performed By: #### 5 7021-8 ####[facility] LABCLIA [id number] [place] [address] [place] Differential cell count method Nom (Bld) Auto Normal [facility] Comment on above: Order Comment: Speci men Type: BLOOD SPECIMENOrdering Facility: [facility] Address: [address] [place] [address] Performed By: #### 5 7021-8 ####[facility] LABCLIA [id number] [place] [address] [place] Eosinophils (Bld) [#/Vol] 0.12 10*3/uL Normal <0.46 [facility] Comment on above: Order Comment: Speci men Type: BLOOD SPECIMENOrdering Facility: [facility] Address: [address] [place] [address] Performed By: #### 5 7021-8 ####[facility] LABCLIA [id number] [place] [address] [place] Eosinophils/100 WBC (Bld) 1.3 % Normal [facility] Comment on above: Order Comment: Speci men Type: BLOOD SPECIMENOrdering Facility: [facility] Address: [address] [place] [address] Performed By: #### 5 7021-8 ####[facility] LABCLIA [id number] [place] [address] [place] Erythrocyte distribution width (RBC) [Ratio] 14.8 % Normal 11.5-15.0 [facility] Comment on above: Order Comment: Speci men Type: BLOOD SPECIMENOrdering Facility: [facility] Address: [address] [place] [address] Performed By: #### 5 7021-8 ####[facility] LABCLIA [id number] [place] [address] [place] Hematocrit (Bld) [Volume fraction] 35.8 % Low 36.0-46.0 [facility] Comment on above: Order Comment: Speci men Type: BLOOD SPECIMENOrdering Facility: [facility] Address: [address] [place] [address] Performed By: #### 5 7021-8 ####[facility] LABCLIA [id number] [place] [address] [place] Hemoglobin (Bld) [Mass/Vol] 11.5 g/dL Normal 11.5-15.5 [facility] [facility] Comment on above: Order Comment: Speci men Type: BLOOD SPECIMENOrdering Facility: [facility] Address: [address] [place] [address] Performed By: #### 5 7021-8 ####[facility] LABIA [id number] [place] [address] [place] Immature granulocytes (Bld) [#/Vol] 0.07 10*3/uL Normal <0.10 [facility] Comment on above: Order Comment: Speci men Type: BLOOD SPECIMENOrdering Facility: [facility] Address: [address] [place] [address] Performed By: #### 5 7021-8 ####[facility] LABIA [id number] [place] [address] [place] Immature granulocytes/100 WBC (Bld) 0.7 % Normal [facility] Comment on above: Order Comment: Speci men Type: BLOOD SPECIMENOrdering Facility: [facility] Address: [address] [place] [address] Performed By: #### 5 7021-8 ####[facility] LABIA [id number] [place] [address] [place] Lymphocytes (Bld) [#/Vol] 1.19 10*3/uL Normal 1.00-4.00 [facility] Comment on above: Order Comment: Speci men Type: BLOOD SPECIMENOrdering Facility: [facility] Address: [address] [place] [address] Performed By: #### 5 7021-8 ####[facility] LABIA [id number] [place] [address] [place] Lymphocytes/100 WBC (Bld) 12.7 % Normal [facility] Comment on above: Order Comment: Speci men Type: BLOOD SPECIMENOrdering Facility: [facility] Address: [address] [place] [address] Performed By: #### 5 7021-8 ####[facility] LABIA [id number] [place] [address] [place] MCH (RBC) [Entitic mass] 28.0 pg Normal 26.0-34.0 [facility] Comment on above: Order Comment: Speci men Type: BLOOD SPECIMENOrdering Facility: [facility] Address: [address] [place] [address] Performed By: #### 5 7021-8 ####[facility] LABIA [id number] [place] [address] [place] MCHC (RBC) [Mass/Vol] 32.1 g/dL Normal 30.5-36.0 [facility] Comment on above: Order Comment: Speci men Type: BLOOD SPECIMENOrdering Facility: [facility] Address: [address] [place] [address] Performed By: #### 5 7021-8 ####[facility] LABIA [id number] [place] [address] [place] MCV (RBC) [Entitic vol] 87.1 fL Normal 80.0-100.0 [facility] Comment on above: Order Comment: Speci men Type: BLOOD SPECIMENOrdering Facility: [facility] Address: [address] [place] [address] Performed By: #### 5 7021-8 ####[facility] LABCLIA [id number] [place] [address] [place] Monocytes (Bld) [#/Vol] 0.67 10*3/uL Normal <0.87 [facility] Comment on above: Order Comment: Speci men Type: BLOOD SPECIMENOrdering Facility: [facility] Address: [address] [place] [address] Performed By: #### 5 7021-8 ####[facility] LABCLIA [id number] [place] [address] [place] Monocytes/100 WBC (Bld) 7.1 % Normal [facility] Comment on above: Order Comment: Speci men Type: BLOOD SPECIMENOrdering Facility: [facility] Address: [address] [place] [address] Performed By: #### 5 7021-8 ####[facility] LABCLIA [id number] [place] [address] [place] Neutrophils (Bld) [#/Vol] 7.29 10*3/uL Normal 1.45-7.50 [facility] Comment on above: Order Comment: Speci men Type: BLOOD SPECIMENOrdering Facility: [facility] Address: [address] [place] [address] Performed By: #### 5 7021-8 ####[facility] LABCLIA [id number] [place] [address] [place] Neutrophils/100 WBC (Bld) 77.7 % Normal [facility] Comment on above: Order Comment: Speci men Type: BLOOD SPECIMENOrdering Facility: [facility] Address: [address] [place] [address] Performed By: #### 5 7021-8 ####[facility] LABCLIA [id number] [address] [id number] [address] [place] Nucleated RBC (Bld) [#/Vol] 10*3/uL Normal <0.01 [facility] Comment on above: Order Comment: Speci men Type: BLOOD SPECIMENOrdering Facility: [facility] Address: [address] [place] [address] Performed By: #### 5 7021-8 ####[facility] LABCLIA [id number] [place] [address] [place] Nucleated RBC/100 WBC (Bld) [Ratio] 0.0 /100 WBC Normal [facility] Comment on above: Order Comment: Speci men Type: BLOOD SPECIMENOrdering Facility: [facility] Address: [address] [place] [address] Performed By: #### 5 7021-8 ####[facility] LABCLIA [id number] [place] [address] [place] Platelet mean volume (Bld) [Entitic vol] 9.6 fL Normal 9.0-12.7 [facility] Comment on above: Order Comment: Speci men Type: BLOOD SPECIMENOrdering Facility: [facility] Address: [address] [place] [address] Performed By: #### 5 7021-8 ####[facility] LABIA [id number] [place] [address] [place] Platelets (Bld) [#/Vol] 405 10*3/uL High 150-400 [facility] Comment on above: Order Comment: Speci men Type: BLOOD SPECIMENOrdering Facility: [facility] Address: [address] [place] [address] Performed By: #### 5 7021-8 ####[facility] LABCLIA [id number] [place] [address] [place] RBC (Bld) [#/Vol] 4.11 10*6/uL Normal 3.90-5.20 [facility] Comment on above: Order Comment: Speci men Type: BLOOD SPECIMENOrdering Facility: [facility] Address: [address] [place] [address] Performed By: #### 5 7021-8 ####[facility] LABIA [id number] [place] [address] [place] WBC (Bld) [#/Vol] 9.39 10*3/uL Normal 3.70-11.00 [facility] Comment on above: Order Comment: Speci men Type: BLOOD SPECIMENOrdering Facility: [facility] Address: [address] [place] [address] Performed By: #### 5 7021-8 ####[facility] LABIA [id number] [place] [address] [place] Ferritin SerPl-ncon 2024 Ferritin [Mass/Vol] 39.6 ng/mL Normal 14.7-205.1 [facility] Comment on above: Order Comment: Speci men Type: BLOOD SPECIMENOrdering Facility: [facility] Address: [address] [place] [address] Performed By: #### 5 0190-8, 2276-4 ####[facility] LABIA [id number] [place] [address] [place] Iron and Iron binding capaci ty panelon 11-19-2024 Iron [Mass/Vol] 65 ug/dL Normal 41-186 [facility] Comment on above: Order Comment: Speci men Type: BLOOD SPECIMENOrdering Facility: [facility] Address: [address] [place] [address] Performed By: #### 5 0190-8, 2276-4 ####[facility] LABIA [id number] [place] [address] [place] Iron binding capacity [Mass/Vol] 392 ug/dL High 232-386 [facility] Comment on above: Order Comment: Speci men Type: BLOOD SPECIMENOrdering Facility: [facility] Address: [address] [place], [place] [address] Performed By: #### 5 0190-8, 2276-4 ####[facility] LABCLIA [id number] [place] [id number] [place] Iron/TIBC [Molar ratio] 16.6 % Normal 15.0-57.0 C [facility] Comment on above: Order Comment: Speci men Type: BLOOD SPECIMENOrdering Facility: [facility] Address: [address] [place] [id number] Performed By: #### 5 0190-8, 2276-4 ####[facility] LABCLIA [id number] [place] [address] [place] MR Ankle - right WO contrast on 11-19-2024 IMPRESSION: Nonspecific circumferential subcutaneous/soft tissue edema involving the distal leg and ankle. Muscle fatty changes and edema which may be related to disuse. Moderate midfoot osteoarthritis. No evidence of inflammatory arthritis. Meter Reader: PHU Transcribe Date/Time: Nov 19 2024 10:47A Dictated by : CHANDNI ZIMMERMAN MD This examination was interpreted and the report reviewed and electronically signed by: LAZARO OHARA MD on Nov 19 2024 1:28PM [facility] DIVISION OF RADIOLOGY * * *Final Report* * * DATE OF EXAM: Nov 19 2024 10:08AM [facility] 0164 - MRI ANKLE WO IVCON [...] significant additional findings. DIVISION OF RADIOLOGY Provider, [facility] - 11/19/2024 * * *Final Report* [...] midfoot osteoarthritis. No evidence of inflammatory arthritis. Meter Reader: PSCB Transcribe Date/Time: Nov 19 2024 10:47A Dictated by : CHANDNI ZIMMERMAN MD This examination was interpreted and the report reviewed and electronically signed by: LAZARO OHARA MD on Nov 19 2024 1:28PM EST Radiology Study observation (narrative) [facility] MR Ankle - right WO contrast Ordered By: [facility] Provider on 11-19-2024 MRI ANKLE WO IVCON RTon MRI ANKLE [...] midfoot osteoarthritis. No evidence of inflammatory arthritis. Meter Reader: PHU Transcribe Date/Time: Nov 19 2024 10:47A Dictated by : CHANDNI ZIMMERMAN MD This examination was interpreted and the report reviewed and electronically signed by: LAZARO OHARA MD on Nov 19 2024 1:28PM EST [id number] Normal [facility] Zinc SerPl-mCncon 11-19-2024 Zinc [Mass/Vol] 55 ug/dL Low 60-120 [facility] Comment on above: Order Comment: Speci men Type: BLOOD SPECIMEN [facility] Address: [address] [place] [address] Result Comment: This test was developed, and its performance characteristics determined by the Department of Pathology and Laboratory Medicine. It has not been cleared or approved by the FDA. The Department of Pathology and Laboratory Medicine is regulated under CLIA as qualified to perform high-complexity testing. This test is used for clinical purposes. It should not be regarded as investigational or for research. Performed By: #### 5 763-8 #### [facility] CLIA [id number] [address] [place] [address] OF [facility] Arti 11-06-2024 JACINTA Telephone ([facility]) YUSUF MEDINA ([id number]) 1935 F [place] Date Time Provider Department 11/06/24 WILLIE KAUR [facility] During your visit today, we recorded the following information about you: Willie Kaur APRN.CNP 11/06/2024 8:58 AM Signed Currently has Rheumatology scheduled 01/04/25. Are there any sooner appointments and would family be interested? She has been seeing Hematology and they think that her abnormal blood work may have a Rheumatology cause. Willie Kaur APRN.DRAKE Steffi Sen 11/06/2024 9:16 AM Signed Patient took a [...] patient by: CAREGIVER José Miguel Swanson [facility] Problem List As Of Date 11/06/2024 Noted [...] 07/17/2013 05/11/2016 (more content not included)... 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 Patient is leaving to [place] for 2 weeks I will schedule lab [...] BLOOD COUNT AND DIFFERENTIAL [SQCBCDIF] Order #: [id number] FUTURE IRON AND TIBC [SQIRON] Order #: [id number] FUTURE FERRITIN [SQFERR] Order #: [id number] FUTURE ZINC BLD [SQZINC] Order #: [id number] FUTURE Prescriptions as of 11/05/2024 - meloxicam (MOBIC) 15 mg tablet TAKE 1 TABLET BY MOUTH ONCE DAILY NEEDED FOR PAIN. DO NOT COMBINE WITH DICLOFENAC GEL - traZODone (DESYREL) 50 mg tablet Take 1 tablet by mouth at bedtime as needed for sedation. - blood sugar diagnostic (Jump[employer] CorporationTOUCH ULTRA TEST) test strip Test blood sugar [...] patient by: CAREGIVER José Miguel Swanson [facility] Problem List As Of Date 11/05/2024 Noted [...] [N18.9] 05/11/2016 (more content not included)... Normal [facility] CNOVon 11-01-2024 CNOV Office Visit (OT[facility] ) YUSUF MEDINA ([id number]) 1935 F [place] Date Time Provider Department 11/01/24 2:50 PM SIMONE KEVIN [facility] During your visit today, we recorded the [...] L REMV CATARACT EXTRACAP,INSERT LENS Bilateral 2020 [facility] Family History: FAMILY HISTORY Problem Relation Age of Onset None Brother None Sister None Brother Medications: Current Outpatient Medications Medication Sig meloxicam (MOBIC) 15 mg tablet TAKE 1 TABLET BY MOUTH ONCE DAILY NEEDED FOR PAIN. DO NOT COMBINE WITH DICLOFENAC GEL traZODone (DESYREL) 50 mg tablet Take 1 tablet by mouth at bedtime as needed for sedation. blood sugar diagnostic (Kimb[employer]CH ULTRA TEST) test strip Test blood sugar [...] Plan: Rig (more content not included)... Normal [facility] CRP SerPl-mCncon 11-01-2024 CRP [Mass/Vol] 0.3 mg/dL Normal <0.9 [facility] Comment on above: Order Comment: Specleroy meade Type: BLOOD SPECIMEN [facility] Address: [address] [place] [address] Performed By: #### 2 132-9, 2284-8 #### [facility] CLIA [id number] [address] [place] [address] [place] ESR Westergren method (Bld) [Velocity]on 11-01-2024 ESR (Bld) [Velocity] 36 mm/h [facility] 0[facility]20 [facility] Comment on above: Order Comment: Fan meade Type: BLOOD SPECIMEN [facility] Address: [address] [place] [address] Performed By: #### 5 763-8 #### [facility] CLIA [id number] [address] [place] [address] [place] XR ANKLE 3V [...] planus and mild to moderate midfoot osteoarthritis. Meter Reader: [facility] Transcribe Date/Time: Nov 02 2024 11:17A Dictated by : SHARYN UMANA MD This examination was interpreted and the report reviewed and electronically signed by: SHARYN UMANA MD on Nov 02 2024 11:20AM EST [id number] Normal [facility] XR FOOT 3V AP/LAT/OBL RTon 1 01-02-2024 [...] planus and mild to moderate midfoot osteoarthritis. Meter Reader: [facility] Transcribe Date/Time: Nov 02 2024 11:17A Dictated by : SHARYN UMANA MD This examination was interpreted and the report reviewed and electronically signed by: SHARYN UMANA MD on Nov 02 2024 11:20AM EST [id number] Normal [facility] CNOVon 10-29-2024 CNOV Office Visit ([facility] ) YUSUF MEDINA ([id number]) 1935 F [place] Date Time Provider Department 10/29/24 4:20 PM AB BENSON [facility] During your visit today, we recorded the following information about you: Temperature Pulse Blood pressure Weight 99.3 degrees 66/minute 159/72 48 kg Ab Benson MD 11/04/2024 7:29 PM Signed This note was created using Allerg[employer] Research Corporationriter. Subjective Yusuf Medina is a 88 year [...] needed for sedation. - blood sugar diagnostic ([employer] ULTRA TEST) test strip Test blood sugar [...] patient by: CAREGIVER José Miguel Swanson [facility] Problem List As Of Date 10/29/2024 Noted [...] intervert*10/31/2010 Osteoart (more content not included)... Normal [facility] CNOVon 09-20-2024 CNOV Office Visit (OTMBHT ) YUSUF MEDINA ([id number]) 1935 F [place] Date Time Provider Department [...] L REMV CATARACT EXTRACAP,INSERT LENS Bilateral 2020 [facility] Family History: FAMILY HISTORY Problem Relation Age of Onset None Brother None Sister None Brother Medications: Current Outpatient Medications Medication Sig traZODone (DESYREL) 50 mg tablet Take 1 tablet by mouth at bedtime as needed for sedation. blood sugar diagnostic (ONETOUCH ULTRA TEST) test [...] malleolus NTTP (more content not included)... Normal [facility] BCR/ABL1 P210 AND P190 DIAGN OSTIC PCR BLOODon 09-19-2024 BCR/ABL1 P210 AND P190 DIAGNOSTIC PCR BLOOD RESULT BCR/ABL1 p210 and p190 Diagnostic PCR Laboratory Accession Number: [id number] Sample Type: Peripheral Blood Result: NOT DETECTED; [...] this sample, and cDNA prepared by reverse automobile radio repairer. Real time PCR was performed in two separate reactions, using primers for e13a2 and/or e14a2 BCR/ABL1 fusion transcripts and ABL1 transcripts for p210 detection and primers for e1a2 BCR/ABL1 fusion transcripts and ABL1 transcripts for p190 detection (QuantideX BCR/ABL IS assay, [employer], [place], [place]). This assay has a limit [...] developed and its performance characteristics determined by 's Pathology and Laboratory Medicine Department. It has not been cleared or approved by the FDA. 's Pathology and Laboratory Medicine Department is regulated under CLIA as certified to perform high-complexity testing. This test is used for clinical purposes. It should not be regarded as investigational or for research. Testing and interpretation performed at , [address] [place] [address]. CLIA Number: [id number] As reviewed by José Miguel Persaud MD [facility] METHYLMALONIC ACIDon 024 Methylmalonate [Moles/Vol] 0.29 umol/L NINF - 0.40 umol/L Comment on above: This test was develo ped, and its performance characteristics determined by the Department of Pathology and Laboratory Medicine. It has not been cleared or approved by the FDA. The Department of Pathology and Laboratory Medicine is regulated under CLIA as qualified to perform high-complexity testing. This test is used for clinical purposes. It should not be regarded as investigational or for research. Methylmalonate [Moles/Vol]on 09-19-2024 Interpretation and review of laboratory results Normal [facility] XR CALCANEUS 2V AXIAL/LAT RT on 09-19-2024 XR CALCANEUS 2V AXIAL/LAT RT * * *Final Report* * * DATE OF EXAM: Sep 19 2024 2:13PM STX 5307 - XR CALCANEUS 2V AXIAL/LAT RT [...] planus with calcaneal enthesophytes and bone demineralization. Meter Reader: PSCB Transcribe Date/Time: Sep 21 2024 11:34A Dictated by : ALEJANDRA MONCADA MD This examination was interpreted and the report reviewed and electronically signed by: ALEJANDRA MONCADA MD on Sep 21 2024 11:39AM EST [id number] Normal [facility] XR FOOT 3V AP/LAT/OBL RTon 1 11-19-2023 [...] toes with hammertoe deformities. 4. Calcaneal enthesophytes. Meter Reader: PSCB Transcribe Date/Time: Sep 21 2024 11:40A Dictated by : ALEJANDRA MONCADA MD This examination was interpreted and the report reviewed and electronically signed by: ALEJANDRA MONCADA MD on Sep 21 2024 11:59AM EST [id number] Normal [facility] CCP ANTIBODY IGGOrdered By: Robin Zavala on 09-18-2024 Cyclic citrullinated peptide IgG Qn NINF CNPNon 09-18-2024 CNPN Telephone ([facility]) YUSUF MEDINA ([id number]) 1935 F [facility] Date Time Provider Department 09/18/24 GRUPO MENDEZ HEMAST During your visit today, we recorded the following information about you: Grupo Mendez MD 09/18/2024 9:19 PM Signed Results were reviewed. I spoke with [id number] Demetria about suspicion for calcaneal bone fracture. [...] initial encounter [S92.001A] Order(s):CONSULT PANEL TO ORTHOPAEDICS [928785] Order #: [id number]: 1 FUTURE Prescriptions as of 09/18/2024 - traZODone (DESYREL) 50 mg tablet Take 1 tablet by mouth at bedtime as needed for sedation. - blood sugar diagnostic (ONETOUCH ULTRA TEST) [...] patient by: CAREGIVER José Miguel Swanson [facility] Problem List As Of Date 09/18/2024 Noted [...] dependent (NIDDM*03/07 (more content not included)... Normal [facility] COPPER BLOODon 09-18-2024 Copper [Mass/Vol] 128 ug/dL 80 - 155 ug/dL Comment on above: This test was develo ped, and its performance characteristics determined by the Department of Pathology and Laboratory Medicine. It has not been cleared or approved by the FDA. The Department of Pathology and Laboratory Medicine is regulated under CLIA as qualified to perform high-complexity testing. This test is used for clinical purposes. It should not be regarded as investigational or for research. Interpretation and review of laboratory results Normal Cyclic citrullinated peptide IgG QnOrdered By: Robin Zavala on 09-18-2024 CCP Antibody IgG Qualitative Negative Negative Interpretation and review of laboratory results Normal This test is used as aid in diagnosis of Rheumatoid arthritis (RA). A negative result cannot rule out RA where clinically suspected. Clinical correlation is required. The following results were obtained with an [employer] CCP IgG JOE. Cyclic Citrullinated Peptide IgG values obtained with different manufacturers' assay methods may not be used interchangeably. The magnitude of the reported IgG levels cannot be correlated to an endpoint titer. [facility] FERRITINon 09-18-2024 Ferritin [Mass/Vol] 59.9 ng/mL 14.7 - 2 05.1 ng/mL FOLATE, SERUMon 09-18-2024 Folate [Mass/Vol] 18.8 ng/mL 4.7 - PINF ng/mL Ferritin [Mass/Vol]on 2023 Interpretation and review of laboratory results Normal [facility] HOMOCYSTEINEon 09-18-2024 Homocysteine [Moles/Vol] 21.2 umol/L High NINF - 15.1 umol/L Homocysteine [Moles/Vol]on 11-18-2023 Interpretation and review of laboratory results Abnormal [facility] Iron and Iron binding capaci ty panelon 09-18-2024 Interpretation and review of laboratory results Abnormal Iron [Mass/Vol] 29 ug/dL Low 41 - 186 ug/dL Iron binding capacity [Mass/Vol] 407 ug/dL High 232 - 386 ug/dL Iron/TIBC [Molar ratio] 7.1 % Low 15.0 - 57.0 % No Panel InformationOrdered By: Cheryl Sinha on 09-18-2024 No Panel Informationon 09-18 Interpretation and review of laboratory results Normal [facility] Nuclear Ab IA Ql (S)Ordered By: Lien Matson on 09-18-2024 RUBEN Scr Qual Positive Abnormal Negative Comment on above: The qualitative anti nuclear antibody screen test performed using the following antigens: dsDNA, Chromatin, Ribosomal P, SS-A 60, SS-A 52, SS-B, Sm, SmRNP, PLUNGER SCOOP OPERATOR A, PLUNGER SCOOP OPERATOR 68, Scl-70, Nadege-1, and Centromere B. Methodology: Multiplex flow immunoassay. Interpretation and review of laboratory results Abnormal [facility] URIC ACIDon 09-18-2024 Urate [Mass/Vol] 5.6 mg/dL 2.5 - 6.6 mg/dL US DVT LOWER RTon 09-18-2024 US DVT LOWER RT Normal [facility] Lower extremity vein - ri ghton 09-18-2024 IMPRESSION: Negative study for proximal DVT in the right lower extremity. Negative study for calf DVT in the right lower extremity. Negative study for superficial thrombophlebitis in the imaged segments of the right lower extremity. Meter Reader: PHU Transcribe Date/Time: Sep 18 2024 9:14A Dictated by : ZACH THOMPSON MD This examination was interpreted and the report reviewed and electronically signed by: ZACH THOMPSON MD on Sep 18 2024 9:20AM [facility] RADIOLOGY * * *Final Report* * * [...] spontaneous respirophasic flow. Normal response to augmentation. [facility] RADIOLOGY Provider, Kalyan [facility] - 09/18/2024 * * *Final Report* [...] imaged segments of the right lower extremity. Meter Reader: [facility]ITAL[facility] Transcribe Date/Time: Sep 18 2024 9:14A Dictated by : ZACH THOMPSON MD This examination was interpreted and the report reviewed and electronically signed by: ZACH THOMPSON MD on Sep 18 2024 9:20AM EST Radiology Study observation (narrative) [facility] US Lower extremity vein - ri ghtOrdered By: Ccf Provider on 09-18-2024 Urate [Mass/Vol]on Interpretation and review of laboratory results Normal VITAMIN B12on 09-18-2024 Cobalamin (Vitamin B12) [Mass/Vol] 433 pg/mL 232 - 1245 pg/mL XR Ankle - right AP and Late ral and obliqueon 09-18-2024 IMPRESSION: Marked right ankle soft tissue swelling. Osteopenia and suspicion of nondisplaced calcaneus fracture. Degenerative changes, calcaneal enthesophytes, and pes planus. Meter Reader: [facility] Transcribe Date/Time: Sep 18 2024 12:20P Dictated by : GERTRUDIS MONCADA MD This examination was interpreted and the report reviewed and electronically signed by: GERTRUDIS MONCADA MD on Sep 18 2024 12:22PM [facility] DIVISION OF RADIOLOGY * * *Final Report* [...] Degenerative changes, calcaneal enthesophytes, and pes planus. Meter Reader: PSCMary Transcribe Date/Time: Sep 18 2024 12:20P Dictated by : GERTRUDIS MONCADA MD This examination was interpreted and the report reviewed and electronically signed by: GERTRUDIS MONCADA MD on Sep 18 2024 12:22PM EST XR Ankle - right AP and Late ral and obliqueOrdered By: Ccf Provider on 09-18-2024 ZINC BLDOrdered By: Cheryl rodriguez on 09-18-2024 Zinc [Mass/Vol] 55 ug/dL Low 60 - 120 ug/dL Comment on above: This test was develo ped, and its performance characteristics determined by the Department of Pathology and Laboratory Medicine. It has not been cleared or approved by the FDA. The Department of Pathology and Laboratory Medicine is regulated under CLIA as qualified to perform high-complexity testing. This test is used for clinical purposes. It should not be regarded as investigational or for research. Zinc [Mass/Vol]Ordered By: Roxane Sinha on 09-18-2024 Interpretation and review of laboratory results Abnormal RUBEN BY IFA SCREENon 09-17-20 24 Nuclear Ab pattern (S) [Interp] Nuclear homogeneous Normal [facility] Comment on above: Order Comment: Speci men Type: BLOOD SPECIMEN Ordering Facility: [facility] Address: [address] [place] [address] Performed By: #### 5 7021-8 #### [facility] CLIA [id number] [address] [place] [address] [place] Nuclear Ab Ql (S) Positive Abnormal Negative [facility] Comment on above: Order Comment: Speci men Type: BLOOD SPECIMEN Ordering Facility: [facility] Address: [address] [place] [address] Result Comment: Anti -nuclear antibody test is used as an aid in diagnosis of systemic autoimmune diseases. Where positive and clinically warranted, follow-up using disease-specific testing is recommended. Low positive titers are not uncommon with advanced age, certain chronic infections, and malignancies among others. Test methodology: Indirect fluorescence immunoassay (IFA) using HEp-2 cells. 1:320 Performed By: #### 5 7021-8 #### [facility] CLIA [id number] [address] [place] [address] [place] BCR/ABL1 P190 NCN P210 % IS MR BLOODon 09-17-2024 BCR/ABL1 P190 NCN(%BCR/ABL1:ABL1) N/A Normal [facility] Comment on above: Order Comment: Speci men Type: BLOOD SPECIMENOrdering Facility: [facility] Address: [address] [place] [address] Performed By: #### B CRPB1 ####[facility] LIMSCLIA [id number] [place] [address] [place]#### ISMRNCNPB ####[facility] LAB[facility]IA [id number] [place] [address] [place] BCR/ABL1 P210 %IS N/A Normal [facility] Comment on above: Order Comment: Speci men Type: BLOOD SPECIMENOrdering Facility: [facility] Address: [address] [place] [address] Performed By: #### B CRPB1 ####[facility] LIMSCLIA [id number] [place] [address] [place]#### ISMRNCNPB ####[facility] LABCLIA [id number] [place] [address] [place] BCR/ABL1 P210 MR N/A Normal [facility] Comment on above: Order Comment: Speci men Type: BLOOD SPECIMENOrdering Facility: [facility] Address: [address] [place] [address] Performed By: #### B CRPB1 ####[facility] LIMSCLIA [id number] [address] OF [place]#### ISMRNCNPB ####[facility] LABCLIA [id number] [address] [place] BCR/ABL1 P210 AND P190 DIAGN OSTIC PCR BLOODon 09-17-2024 BCR/ABL1 P210 AND P190 DIAGNOSTIC PCR BLOOD RESULT Normal [facility] Comment on above: Order Comment: Speci men Type: BLOOD SPECIMENOrdering Facility: [facility] Address: [address] [place] [address] Result Comment: BCR/ ABL1 p210 and p190 Diagnostic PCR Laboratory Accession Number: [id number] Sample Type: Peripheral Blood Result: NOT DETECTED; [...] this sample, and cDNA prepared by reverse automobile radio repairer. Real time PCR was performed in two separate reactions, using primers for e13a2 and/or e14a2 BCR/ABL1 fusion transcripts and ABL1 transcripts for p210 detection and primers for e1a2 BCR/ABL1 fusion transcripts and ABL1 transcripts for p190 detection (QuantideX BCR/ABL IS assay, [employer], [place], [place]). This assay has a limit [...] developed and its performance characteristics determined by 's Pathology and Laboratory Medicine Department. It has not been cleared or approved by the FDA. 's Pathology and Laboratory Medicine Department is regulated under CLIA as certified to perform high-complexity testing. This test is used for clinical purposes. It should not be regarded as investigational or for research. Testing and interpretation performed at , [facility] [place] [address]. CLIA Number: [id number] As reviewed by José Miguel Persaud MD Performed By: #### B CRPB1 ####[facility] LIMSCLIA [id number] [address] [place]#### ISMRNCNPB ####[facility] LABCLIA [id number] [place] [address] [place] CBC W Ordered Manual Differe ntial panel (Bld)on 09-17-2024 Basophils (Bld) [#/Vol] 0.03 10*3/uL [facility] Bas[facility]100 WBC (Bld) 0.3 % C [facility] Differential cell count method Nom (Bld) Auto Eosinophils (Bld) [#/Vol] 0.07 10*3/uL [facility] Eosinophils/100 WBC (Bld) 0.7 % Erythrocyte distribution width (RBC) [Ratio] 14.2 % 11.5 - 15.0 % Hematocrit (Bld) [Volume fraction] 35.2 % Low 36.0 - 46.0 % Hemoglobin (Bld) [Mass/Vol] 11.4 g/dL Low 11.5 - 15.5 g/dL Immature granulocytes (Bld) [#/Vol] 0.06 10*3/uL [facility] Immature granulocytes/100 WBC (Bld) 0.6 % Interpretation and review of laboratory results Abnormal Lymphocytes (Bld) [#/Vol] 1.42 10*3/uL Lymphocytes/100 WBC (Bld) 15.1 % MCH (RBC) [Entitic mass] 28.6 pg 26.0 - 34.0 pg MCHC (RBC) [Mass/Vol] 32.4 g/dL 30.5 - 36.0 g/dL MCV (RBC) [Entitic vol] 88.2 fL 80.0 - 100.0 fL Monocytes (Bld) [#/Vol] 0.52 10*3/uL [facility] Monocytes/100 WBC (Bld) 5.5 % C [facility] Neutrophils (Bld) [#/Vol] 7.33 10*3/uL Neutrophils/100 WBC (Bld) 77.8 % Nucleated RBC (Bld) [#/Vol] [facility] Nucleated RBC/100 WBC (Bld) [Ratio] 0.0 % /100 WBC Platelet mean volume (Bld) [Entitic vol] 9.8 fL 9.0 - 12.7 fL Platelets (Bld) [#/Vol] 409 10*3/uL High RBC (Bld) [#/Vol] 3.99 10*6/uL 3.90 - 5.2 0 m/uL WBC (Bld) [#/Vol] 9.43 10*3/uL [facility] This is an appended report. These results have been appended to a previously verified report. [facility] Basophils (Bld) [#/Vol] 0.03 10*3/uL Normal <0.11 [facility] Comment on above: Order Comment: Speci men Type: BLOOD SPECIMENOrdering Facility: [facility] Address: [address] [place] [address] Performed By: #### 1 4196-0, [id number], STEVERARDO, 44185-3 ####[facility] LABCLIA [id number] [place] [address] [place] Basophils/100 WBC (Bld) 0.3 % Normal C [facility] Comment on above: Order Comment: Speci men Type: BLOOD SPECIMENOrdering Facility: [facility] Address: [address] [place] [address] Performed By: #### 1 4196-0, [id number], STEVERARDO, 87388-1 ####[facility] LABCLIA [id number] [place] [address] [place] Differential cell count method Nom (Bld) Auto Normal [facility] Comment on above: Order Comment: Speci men Type: BLOOD SPECIMENOrdering Facility: [facility] Address: [address] [place] [address] Performed By: #### 1 4196-0, [id number], STFRZAID, 23479-0 ####[facility] LABCLIA [id number] [place] [address] [place] Eosinophils (Bld) [#/Vol] 0.07 10*3/uL Normal <0.46 [facility] Comment on above: Order Comment: Speci men Type: BLOOD SPECIMENOrdering Facility: [facility] Address: [address] [place] [address] Performed By: #### 1 4196-0, [id number], STFREV, 26110-4 ####[facility] LABCLIA [id number] [place] [address] [place] Eosinophils/100 WBC (Bld) 0.7 % Normal [facility] Comment on above: Order Comment: Speci men Type: BLOOD SPECIMENOrdering Facility: [facility] Address: [address] [place] [address] Performed By: #### 1 4196-0, [id number], STFREV, 39314-9 ####[facility] LABCLIA [id number] [place] [address] [place] Erythrocyte distribution width (RBC) [Ratio] 14.2 % Normal 11.5-15.0 [facility] Comment on above: Order Comment: Speci men Type: BLOOD SPECIMENOrdering Facility: [facility] Address: [address] [place] [address] Performed By: #### 1 4196-0, [id number], STFREV, 99969-0 ####[facility] LABCLIA [id number] [place] [address] [place] Hematocrit (Bld) [Volume fraction] 35.2 % Low 36.0-46.0 [facility] Comment on above: Order Comment: Speci men Type: BLOOD SPECIMENOrdering Facility: [facility] Address: [address] [place] [address] Performed By: #### 1 4196-0, [id number], STFREV, 76505-0 ####[facility] LABCLIA [id number] [place] [address] [place] Hemoglobin (Bld) [Mass/Vol] 11.4 g/dL Low 11.5-15.5 [facility] Comment on above: Order Comment: Speci men Type: BLOOD SPECIMENOrdering Facility: [facility] Address: [address] [place] [address] Performed By: #### 1 4196-0, [id number], STFRZAID, 29622-9 ####[facility] LABCLIA [id number] [place] [address] [place] Immature granulocytes (Bld) [#/Vol] 0.06 10*3/uL Normal <0.10 [facility] Comment on above: Order Comment: Speci men Type: BLOOD SPECIMENOrdering Facility: [facility] Address: [address] [place] [address] Performed By: #### 1 4196-0, [id number], STEVERARDO, 68174-3 ####[facility] LABCLIA [id number] [place] [address] [place] Immature granulocytes/100 WBC (Bld) 0.6 % Normal [facility] Comment on above: Order Comment: Speci men Type: BLOOD SPECIMENOrdering Facility: [facility] Address: [address] [place] [address] Performed By: #### 1 4196-0, [id number], STEVERARDO, 04692-5 ####[facility] LABCLIA [id number] [place] [address] [place] Lymphocytes (Bld) [#/Vol] 1.42 10*3/uL Normal 1.00-4.00 [facility] Comment on above: Order Comment: Speci men Type: BLOOD SPECIMENOrdering Facility: [facility] Address: [address] [place] [address] Performed By: #### 1 4196-0, [id number], STEVERARDO, 47721-1 ####[facility] LABCLIA [id number] [place] [address] [place] Lymphocytes/100 WBC (Bld) 15.1 % Normal [facility] Comment on above: Order Comment: Speci men Type: BLOOD SPECIMENOrdering Facility: [facility] Address: [address] [place] [address] Performed By: #### 1 4196-0, [id number], RADHA 63490-3 ####[facility] LABCLIA [id number] [address] STATES [facility] MCH (RBC) [Entitic mass] 28.6 pg Normal 26.0-34.0 [facility] Comment on above: Order Comment: Speci men Type: BLOOD SPECIMENOrdering Facility: [facility] Address: [address] [place] [address] Performed By: #### 1 4196-0, [id number], RADHA 00669-3 ####[facility] LABCLIA [id number] [address] [place] MCHC (RBC) [Mass/Vol] 32.4 g/dL Normal 30.5-36.0 [facility] Comment on above: Order Comment: Speci men Type: BLOOD SPECIMENOrdering Facility: [facility] Address: [address] [place] [address] Performed By: #### 1 4196-0, [id number], RADHA 77552-8 ####[facility] LABCLIA [id number] [place] [address] [place] MCV (RBC) [Entitic vol] 88.2 fL Normal 80.0-100.0 [facility] Comment on above: Order Comment: Speci men Type: BLOOD SPECIMENOrdering Facility: [facility] Address: [address] [place] [address] Performed By: #### 1 4196-0, [id number], RADHA 10648-4 ####[facility] LABCLIA [id number] [place] [address] [place] Monocytes (Bld) [#/Vol] 0.52 10*3/uL Normal <0.87 [facility] Comment on above: Order Comment: Speci men Type: BLOOD SPECIMENOrdering Facility: [facility] Address: [address] [place] [address] Performed By: #### 1 4196-0, [id number], STFRZAID, 98781-3 ####[facility] LABCLIA [id number] [place] [address] [place] Monocytes/100 WBC (Bld) 5.5 % Normal [facility] Comment on above: Order Comment: Speci men Type: BLOOD SPECIMENOrdering Facility: [facility] Address: [address] [place] [address] Performed By: #### 1 4196-0, [id number], STEVERARDO, 56944-9 ####[facility] LABCLIA [id number] [place] [address] [place] Neutrophils (Bld) [#/Vol] 7.33 10*3/uL Normal 1.45-7.50 [facility] Comment on above: Order Comment: Speci men Type: BLOOD SPECIMENOrdering Facility: [facility] Address: [address] [place] [address] Performed By: #### 1 4196-0, [id number], STEVERARDO, 26241-2 ####[facility] LABCLIA [id number] [place] [address] [place] Neutrophils/100 WBC (Bld) 77.8 % Normal [facility] Comment on above: Order Comment: Speci men Type: BLOOD SPECIMENOrdering Facility: [facility] Address: [address] [place] [address] Performed By: #### 1 4196-0, [id number], STEVERARDO, 10454-0 ####[facility] LABCLIA [id number] [place] [address] [place] Nucleated RBC (Bld) [#/Vol] 10*3/uL Normal <0.01 [facility] Comment on above: Order Comment: Speci men Type: BLOOD SPECIMENOrdering Facility: [facility] Address: [address] [place] [address] Performed By: #### 1 4196-0, [id number], STEVERARDO, 97735-2 ####[facility] LABCLIA [id number] [place] [address] [place] Nucleated RBC/100 WBC (Bld) [Ratio] 0.0 /100 WBC Normal [facility] Comment on above: Order Comment: Speci men Type: BLOOD SPECIMENOrdering Facility: [facility] Address: [address] [place] [address] Performed By: #### 1 4196-0, [id number], RADHA 57617-9 ####[facility] LABCLIA [id number] [place] [address] [place] Platelet mean volume (Bld) [Entitic vol] 9.8 fL Normal 9.0-12.7 [facility] Comment on above: Order Comment: Speci men Type: BLOOD SPECIMENOrdering Facility: [facility] Address: [address] [place] [address] Performed By: #### 1 4196-0, [id number], RADHA 81555-1 ####[facility] LABCLIA [id number] [place] [address] [place] Platelets (Bld) [#/Vol] 409 10*3/uL High 150-400 [facility] Comment on above: Order Comment: Speci men Type: BLOOD SPECIMENOrdering Facility: [facility] Address: [address] [place] [address] Performed By: #### 1 4196-0, [id number], RADHA, 60093-7 ####[facility] LABCLIA [id number] [place] [address] [place] RBC (Bld) [#/Vol] 3.99 10*6/uL Normal 3.90-5.20 [facility] Comment on above: Order Comment: Speci men Type: BLOOD SPECIMENOrdering Facility: [facility] Address: [address] [place] [address] Performed By: #### 1 4196-0, [id number], STFR, 53229-3 ####[facility] LABCLIA [id number] [place] [address] [place] WBC (Bld) [#/Vol] 9.43 10*3/uL Normal 3.70-11.00 [facility] Comment on above: Order Comment: Speci men Type: BLOOD SPECIMENOrdering Facility: [facility] Address: [address] [place] [address] Performed By: #### 1 4196-0, [id number], [facility], 38535-4 ####[facility] LABCLIA [id number] [address] [place] CNOVSPon 09-17-2024 CNOVSP Visit (SP) Office (HEMAST) YUSUF MEDINA ([id number]) 1935 [facility] Date Time Provider Department 09/17/24 3:10 PM [facility] During your visit today, we recorded the [...] office to be evaluated for leukocytosis. ASSESSMENT: (D72.829) Leukocytosis, unspecified type (primary encounter [...] L REMV CATARACT EXTRACAP,INSERT LENS Bilateral 2020 [facility] FAMILY HISTORY Problem Relation Age of Onset [...] as needed for sedation. blood sugar diagnostic (ONETOUCH ULTRA TEST) test strip Test blood sugar once daily glipiZIDE (GLUCOTROL XL) 2.5 mg 24 hr tablet TAKE 1 TABLET BY MOUTH ONCE DAILY lisinopril-hydroCHLORO thiazide (ZESTORETIC) 20-25 mg per tablet Take 1 tablet by mouth once daily. pioglitazone (more content not included)... Normal [facility] COPPER BLOODon 09-17-2024 Copper [Mass/Vol] 128 ug/dL Normal 80-155 [facility] Comment on above: Order Comment: Speci men Type: BLOOD SPECIMEN [facility] Facility: [facility] Address: [address] [place] [address] Result Comment: This test was developed, and its performance characteristics determined by the Department of Pathology and Laboratory Medicine. It has not been cleared or approved by the FDA. The Department of Pathology and Laboratory Medicine is regulated under CLIA as qualified to perform high-complexity testing. This test is used for clinical purposes. It should not be regarded as investigational or for research. Performed By: #### 5 763-8 #### [facility] CLIA [id number] [address] [place] [address] [place] Centromere Ab IF Ql (S)on Centromere Ab Qn (S) <0.2 Normal <1.0 [facility] Comment on above: Order Comment: Speci men Type: BLOOD SPECIMEN [facility] Address: [address] [place] [address] Result Comment: Anti -centromere antibody is used as in aid in diagnosis of systemic sclerosis. Clinical correlation is required. Test Methodology: Multiplex flow immunoassay. Performed By: #### 5 7021-8 #### [facility] CLIA [id number] [address] [place] [address] [place] CENTROMERE AB QUAL Negative Normal Negative [facility] Comment on above: Order Comment: Speci halina Type: BLOOD SPECIMEN [facility] Address: [address] [place] [address] Performed By: #### 5 7021-8 #### [facility] CLIA [id number] [address] [place] [address] [place] Chromatin Ab Qnon 09-17-2024 CHROMATIN AB QUAL Negative Normal Negative [facility] Comment on above: Order Comment: Speci men Type: BLOOD SPECIMEN [facility] Facility: [facility] Address: [address] [place] [address] Performed By: #### 1 3964-2 #### [facility] CLIA [id number] [address] [place] [address] [place] Chromatin Ab SerPl-aCncon Chromatin Ab Qn <0.2 Normal <1.0 [facility] Comment on above: Order Comment: Speci men Type: BLOOD SPECIMEN [facility] Address: [address] [place] [address] Result Comment: Test Methodology: Multiplex flow immunoassay. Performed By: #### 1 3964-2 #### [facility] CLIA [id number] [address] [place] [address] [place] Cyclic citrullinated peptide IgG Qnon 09-17-2024 CCP ANTIBODY IGG QUALITATIVE Negative Normal Negative [facility] Comment on above: Order Comment: Speci men Type: BLOOD SPECIMEN [facility] Address: [address] [place] [address] Performed By: #### 5 763-8 #### [facility] CLIA [id number] [address] [place] [address] [place] DNA double strand Ab IA Qn ( S)on 09-17-2024 DNA ANTIBODY 175 IU/mL Normal <=200 [facility] Comment on above: Order Comment: Speci men Type: BLOOD SPECIMEN [facility]ing [facility] Address: [address] [place] [address] Result Comment: Nega tive: <200 IU/mL Equivocal: 201-300 IU/mL Moderate Positive: 301-800 IU/mL Strong Positive: >801 IU/mL Performed By: #### 5 7021-8 #### [facility] CLIA [id number] [address] [place] [address] [place] DNA ANTIBODY QUALITATIVE INTERPRETATION Negative Normal Negative [facility] Comment on above: Order Comment: Speci men Type: BLOOD SPECIMEN [facility] Address: [address] [place] [address] Performed By: #### 5 7021-8 #### [facility] CLIA [id number] [address] [place] [address] [place] EUFEMIA Jo1 Ab Ser-aCncon 2023 Nadege-1 extractable nuclear Ab Qn (S) <0.2 Normal <1.0 [facility] Comment on above: Order Comment: Speci men Type: BLOOD SPECIMEN [facility] Address: [address] [place] [address] Performed By: #### 5 7021-8 #### [facility] CLIA [id number] [address] [place] [address] [place] EUFEMIA PLUNGER SCOOP OPERATOR Ab Ser-aCncon 2023 Ribonucleoprotein extractable nuclear Ab Qn (S) <0.2 Normal <1.0 [facility] Comment on above: Order Comment: Speci men Type: BLOOD SPECIMEN [facility] Address: [address] [place] [address] Performed By: #### 1 3964-2 #### [facility] CLIA [id number] [address] [place] [address] [place] [place] Ribonucleoprotein extractable nuclear Ab Qn (S) 2.3 AI High <1.0 [facility] Comment on above: Order Comment: Speci men Type: BLOOD SPECIMEN Ordering Facility: [facility] Address: [address] [place] [address] Performed By: #### 5 7021-8 #### [facility] CLIA [id number] [address] [place] [address] [place] EUFEMIA SM IgG Ser-aCncon 2023 Bang extractable nuclear IgG Qn (S) <0.2 Normal <1.0 [facility] Comment on above: Order Comment: Speci men Type: BLOOD SPECIMEN Ordering Facility: [facility] Address: [address] [place] [address] Performed By: #### 5 7021-8 #### [facility] CLIA [id number] [address] [place] [address] [place] EUFEMIA SS-A Ab Ser-aCncon 09-17 Sjogrens syndrome-A extractable nuclear Ab Qn (S) <0.2 Normal <1.0 [facility] Comment on above: Order Comment: Speci men Type: BLOOD SPECIMEN Ordering Facility: [facility] Address: [address] [place] [address] Result Comment: Test Methodology: Multiplex flow immunoassay. Performed By: #### 5 7021-8 #### [facility] CLIA [id number] [address] [place] [address] [place] EUFEMIA SS-B Ab Ser-aCncon 09-17 Sjogrens syndrome-B extractable nuclear Ab Qn (S) <0.2 Normal <1.0 [facility] Comment on above: Order Comment: Speci men Type: BLOOD SPECIMEN Ordering Facility: [facility] Address: [address] [place] [address] Result Comment: Anti -SSB (anti-La) antibody is used as an aid in diagnosis of a variety of systemic autoimmune diseases, especially for Sjogren's syndrome and systemic lupus erythematosus. Clinical correlation is required. Test Methodology: Multiplex flow immunoassay. Performed By: #### 1 3964-2 #### [facility] CLIA [id number] [address] [place] [address] [place] Ferritin SerPl-mCncon 2023 Ferritin [Mass/Vol] 59.9 ng/mL Normal 14.7-205.1 [facility] Comment on above: Order Comment: Speci men Type: BLOOD SPECIMENOrdering Facility: [facility] Address: [address] [place] [address] Performed By: #### 5 0190-8, 3084-1, 2276-4 ####[facility] [id number] [place] [address] [place] Folate SerPl-mCncon 09-17-20 24 Folate [Mass/Vol] 18.8 ng/mL Normal >4.7 [facility] Comment on above: Order Comment: Speci men Type: BLOOD SPECIMEN Ordering Facility: [facility] Address: [address] [place] [address] Performed By: #### 2 132-9, 2284-8 #### [facility] CLIA [id number] [address] [place] [address] [place] Hcys SerPl-sCncon 09-17-2024 Homocysteine [Moles/Vol] 21.2 umol/L High <15.1 [facility] Comment on above: Order Comment: Speci men Type: BLOOD SPECIMEN Ordering Facility: [facility] Address: [address] [place] [address] Performed By: #### 5 763-8 #### [facility] CLIA [id number] [address] [place] [address] OF [place] IMMUNOFIXATION SCREEN, SERUM on 09-17-2024 [...] monoclonal gammopathy. Clinical correlation is necessary. Normal [facility] Comment on above: Order Comment: Fan meade Type: BLOOD SPECIMENOrdering Facility: [facility] Address: [address] [place] [address] Performed By: #### I FES ####[facility] [id number] [address] OF [place] MPA RESULT A poorly defined region of restricted mobility is present that may represent an M protein. Abnormal No M protein is identified. [facility] Comment on above: Order Comment: Katei halina Type: BLOOD SPECIMENOrdering Facility: [facility] Address: [address] [place] [address] Performed By: #### I FES ####[facility] [id number] [address] [place] STAFF REVIEW (MPA) Reviewed by Brianne Mosley M.D., Ph.D Normal [facility] Comment on above: Order Comment: Speci men Type: BLOOD SPECIMENOrdering Facility: [facility] Address: [address] [place] [address] Performed By: #### I [facility] ####[facility] [id number] [place] [address] [place] IMMUNOGLOBULINS,IGG,IGA,IGMo n 09-17-2024 IgA [Mass/Vol] 142 mg/dL Normal 70-400 [facility] Comment on above: Order Comment: Speci men Type: BLOOD SPECIMEN Ordering Facility: [facility] Address: [address] [place] [address] Performed By: #### 5 763-8 #### [facility] CLIA [id number] [address] [place] [address] [place] IgG [Mass/Vol] 750 mg/dL Normal 700-1600 [facility] Comment on above: Order Comment: Speci men Type: BLOOD SPECIMEN Ordering Facility: [facility] Address: [address] [place] [address] Performed By: #### 5 763-8 #### [facility] CLIA [id number] [address] [place] [address] [place] IgM [Mass/Vol] 23 mg/dL Low 40-230 [facility] Comment on above: Order Comment: Speci men Type: BLOOD SPECIMEN Ordering Facility: [facility] Address: [address] [place] [address] Performed By: #### 5 763-8 #### [facility] CLIA [id number] [address] [place] [address] [place] Iron and Iron binding capaci ty panelon 09-17-2024 Iron [Mass/Vol] 29 ug/dL Low 41-186 [facility] Comment on above: Order Comment: Speci men Type: BLOOD SPECIMENOrdering Facility: [facility] Address: [address] [place] [address] Performed By: #### 5 0190-8, 3084-1, 2276-4 ####[facility] [id number] [place] [id number] [place] Iron binding capacity [Mass/Vol] 407 ug/dL High 232-386 [facility] Comment on above: Order Comment: Speci men Type: BLOOD SPECIMENOrdering Facility: [facility] Address: [address] [place] [address] Performed By: #### 5 0190-8, 3083-, 2276-02 ####[facility] [id number] [place] [id number] [place] Iron/TIBC [Molar ratio] 7.1 % Low 15.0-57.0 C [facility] Comment on above: Order Comment: Speci men Type: BLOOD SPECIMENOrdering Facility: [facility] Address: [address] [place] [address] Performed By: #### 5 0190-8, 3083-, 2276-02 ####[facility] [id number] [place] [address] [place] Nadege-1 extractable nuclear Ab Qn (S)on 09-17-2024 NADEGE 1 ANTIBODY QUAL Negative Normal Negative [facility] Comment on above: Order Comment: Speci men Type: BLOOD SPECIMEN Ordering Facility: [facility] Address: [address] [place] [address] Result Comment: Anti -NADEGE-1 antibody is used as an aid in diagnosis of polymyositis and dermatomyositis especially with pulmonary involvement. A negative result cannot rule out polymyositis or dermatomyositis. Clinical correlation is required. Test Methodology: Multiplex flow immunoassay. Performed By: #### 5 7021-8 #### [facility] CLIA [id number] [address] [place] [address] [place] KAPPA/BOWEN,FREE,SERon 2023 Immunoglobulin light chains.kappa.free (S) [Mass/Vol] 45.2 mg/L High 3.3-19.4 [facility] Comment on above: Order Comment: Speci men Type: BLOOD SPECIMEN Ordering Facility: [facility] Address: [address] [place] [address] Result Comment: Rare ly, increased serum free light chains levels may not be detected or accurately quantified due to prozone phenomenon or in high viscosity samples using this immunoturbidimetric assay. Correlation with other laboratory results and clinical findings is recommended. The [place]oxee Free Light Chain was performed using the Binding Site Optilite immunoturbidimetric method. Result obtained with different assay methods or kits cannot be used interchangeably. Performed By: #### 5 763-8 #### [facility] CLIA [id number] [address] [place] [address] [place] Immunoglobulin light chains.kappa/Immunoglob ulin light chains.lambda (S) [Mass ratio] 1.57 Normal 0.26-1.65 [facility] Comment on above: Order Comment: Speci halina Type: BLOOD SPECIMEN Ordering Facility: [facility] Address: [address] [place] [address] Performed By: #### 5 763-8 #### [facility] CLIA [id number] [address] [place] [address] [place] Immunoglobulin light chains.lambda.free [Mass/Vol] 28.8 mg/L High 5.7-26.3 [facility] Comment on above: Order Comment: Kateleroy meade Type: BLOOD SPECIMEN Ordering Facility: [facility] Address: [address] [place] [address] Result Comment: Rare ly, increased serum free [...] cannot be used interchangeably. Performed By: #### 5 763-8 #### [facility] CLIA [id number] [address] [place] [address] [place] Methylmalonate SerPl-sCncon 09-17-2024 Methylmalonate [Moles/Vol] 0.29 umol/L Normal <=0.40 [facility] Comment on above: Order Comment: Speci men Type: BLOOD SPECIMEN Ordering Facility: [facility] Address: [address] [place] [address] Result Comment: This test was developed, and its performance characteristics determined by the Department of Pathology and Laboratory Medicine. It has not been cleared or approved by the FDA. The Department of Pathology and Laboratory Medicine is regulated under CLIA as qualified to perform high-complexity testing. This test is used for clinical purposes. It should not be regarded as investigational or for research. Performed By: #### 1 3964-2 #### [facility] CLIA [id number] [address] [place] [address] [place] Nuclear Ab IA Ql (S)on 09-17 RUBEN SCR QUAL Positive Abnormal Negative [facility] Comment on above: Order Comment: Speci men Type: BLOOD SPECIMEN Ordering Facility: [facility] Address: [address] [place] [address] Result Comment: The qualitative antinuclear antibody screen test performed using the following antigens: dsDNA, Chromatin, Ribosomal P, SS-A 60, SS-A 52, SS-B, Sm, SmRNP, PLUNGER SCOOP OPERATOR A, PLUNGER SCOOP OPERATOR 68, Scl-70, Nadege-1, and Centromere B. Methodology: Multiplex flow immunoassay. Performed By: #### 1 3964-2 #### [facility] CLIA [id number] [address] [place] [address] [place] PATHOLOGIST INTERPRETATION C BC/DIFFon 09-17-2024 [employer]door Adventure Leader review Mckay (Unsp spec) [Interp] Reviewed by Dominga Johnson MD [facility] Comment on above: Order Comment: Speci men Type: BLOOD SPECIMENOrdering Facility: [facility] Address: [address] [place] [address] Performed By: #### 1 4196-0, [id number], RADHA, 82981-0 ####[facility] [id number] [place] [address] [place] STAFF REVIEW, CBCDIF Normal [facility] Comment on above: Order Comment: Speci men Type: BLOOD SPECIMENOrdering Facility: [facility] Address: [address] [place] [address] Result Comment: Norm ocytic anemia without polychromasia Thrombocytosis Performed By: #### 1 4196-0, [id number], [facility], 51501-6 ####[facility] [id number] [place] [address] [place] RBC MORPHOLOGYon 09-17-2024 Platelets Estimate (Bld) [#/Vol] Increased Normal [facility] Comment on above: Order Comment: Speci men Type: BLOOD SPECIMENOrdering Facility: [facility] Address: [address] [place] [address] Performed By: #### 1 4196-0, [id number], [facility], 54714-6 ####[facility] [id number] [place] [address] [place] RBC morphology finding Nom (Bld) Reviewed: unremarkable Normal [facility] Comment on above: Order Comment: Speci men Type: BLOOD SPECIMENOrdering Facility: [facility] Address: [address] [place] [address] Performed By: #### 1 4196-0, [id number], [facility], 61208-3 ####[facility] [id number] [place] [address] [place] RETICULOCYTE COUNTon 024 Reticulocytes (Bld) [#/Vol] 0.078 10*3/uL Retics #on 09-17-2024 Reticulocytes (Bld) [#/Vol] 0.66325 10*3/uL Normal 0.018-0.100 [facility] Comment on above: Order Comment: Speci men Type: BLOOD SPECIMENOrdering Facility: [facility] Address: [address] [place] [address] Performed By: #### 1 4196-0, [id number], [facility], 91119-5 ####[facility] [id number] [place] [address] [place] Reticulocytes (Bld) [#/Vol]o n 09-17-2024 Interpretation and review of laboratory results Normal Reticulocytes/100 RBC (Bld) 2.0 % 0.4 - 2.0 % [facility] Reticulocytes/100 RBC (Bld) 2.0 % Normal 0.4-2.0 [facility] Comment on above: Order Comment: Fan meade Type: BLOOD SPECIMENOrdering Facility: [facility] Address: [address] [place] [address] Performed By: #### 1 4196-0, [id number], [facility], 70959-6 ####[facility] [id number] [place] [address] [place] Ribonucleoprotein extractabl e nuclear Ab Qn (S)on 09-17-2024 ANTI-PLUNGER SCOOP OPERATOR QUAL Positive Abnormal Negative [facility] Comment on above: Order Comment: Fan meade Type: BLOOD SPECIMEN Ordering Facility: [facility] Address: [address] [place] [address] Performed By: #### 5 7021-8 #### [facility] CLIA [id number] [address] [place] [address] [place] RIBOSOMAL PLUNGER SCOOP OPERATOR QUAL Negative Normal Negative [facility] Comment on above: Order Comment: Fan meade Type: BLOOD SPECIMEN Ordering Facility: [facility] Address: [address] [place] [address] Result Comment: Anti -Ribosomal RNA (Ribosomal P) antibody is used as an aid in diagnosis of systemic autoimmune diseases especially systemic lupus erythematosus and mixed connective tissue disease. Cross-reactivity with Anti-bang antibody is not uncommon. Clinical correlation is required. Test Methodology: Multiplex flow immunoassay. Performed By: #### 1 3964-2 #### [facility] CLIA [id number] [address] [place], [place] [address] [place] [address] [place] SCL-70 extractable nuclear I gG IA Qn (S)on 09-17-2024 SCLERODERMA AB QUAL Negative Normal [facility] Comment on above: Order Comment: Speci men Type: BLOOD SPECIMEN Ordering Facility: [facility] Address: [address] [place] [address] Performed By: #### 5 7021-8 #### [facility] CLIA [id number] [address] [place] [address] [place] SCLERODERMA IGG AB <0.2 Normal <1.0 [facility] Comment on above: Order Comment: Speci men Type: BLOOD SPECIMEN Ordering Facility: [facility] Address: [address] [place] [address] Result Comment: Scl- 70/Scleroderma antibody test is used as an aid in diagnosis of systemic sclerosis especially the diffuse cutaneous form. A negative result cannot rule out systemic sclerosis. The final interpretation should consider clinical picture and other test results such as anti-centromere antibody. Test Methodology: Multiplex flow immunoassay. Performed By: #### 5 7021-8 #### [facility] CLIA [id number] [address] [place] [address] [place] Sjogrens syndrome-A extracta ble nuclear Ab Qn (S)on 09-17-2024 SSA ANTIBODY QUAL Negative Normal Negative [facility] Comment on above: Order Comment: Speci men Type: BLOOD SPECIMEN Ordering Facility: [facility] Address: [address] [place] [address] Performed By: #### 5 7021-8 #### [facility] CLIA [id number] [address] [place] [address] [place] Sjogrens syndrome-B extracta ble nuclear Ab Qn (S)on 09-17-2024 SSB ANTIBODY QUAL Negative Normal Negative [facility] Comment on above: Order Comment: Speci men Type: BLOOD SPECIMEN Ordering Facility: [facility] Address: [address] [place], [place] [address] Performed By: #### 1 3964-2 #### [facility] CLIA [id number] [address] [place] [address] [place] Bang extractable nuclear Ig G Qn (S)on 09-17-2024 SM ANTIBODY QUAL Negative Normal Negative [facility] Comment on above: Order Comment: Speci men Type: BLOOD SPECIMEN Ordering Facility: [facility] Address: [address] [place] [address] Result Comment: Anti -Sm (Bang) antibody is used as an aid in diagnosis of systemic lupus erythematosus and its presence is associated with renal disease. A negative result cannot rule out systemic lupus erythematosus. Clinical correlation is required. Test Methodology: Multiplex flow immunoassay. Performed By: #### 5 7021-8 #### [facility] CLIA [id number] [facility] [place] [address] [place] Urate SerPl-mCncon 4 Urate [Mass/Vol] 5.6 mg/dL Normal 2.5-6.6 [facility] Comment on above: Order Comment: Speci men Type: BLOOD SPECIMENOrdering Facility: [facility] Address: [address] [place] [address] Performed By: #### 5 0190-8, 3084-1, 2276-4 ####[facility] [id number] [place] [address] [place] Vit B12 SerPl-mCncon 024 Cobalamin (Vitamin B12) [Mass/Vol] 433 pg/mL Normal 232-1245 [facility] Comment on above: Order Comment: Speci men Type: BLOOD SPECIMEN Ordering [facility] Address: [address] [place] [address] Performed By: #### 2 132-9, 2284-8 #### [facility] CLIA [id number] [address] [place] [address] [place] XR ANKLE 3V [...] Degenerative changes, calcaneal enthesophytes, and pes planus. Meter Reader: PSCMary Transcribe Date/Time: Sep 18 2024 12:20P Dictated by : GERTRUDIS MONCADA MD This examination was interpreted and the report reviewed and electronically signed by: GERTRUDIS MONCADA MD on Sep 18 2024 12:22PM EST [id number] Normal [facility] XR Ankle - right AP and Late ral and obliqueon 09-17-2024 Radiology Study observation (narrative) [facility] Zinc SerPl-mCncon 09-17-2024 Zinc [Mass/Vol] 55 ug/dL Low 60-120 [facility] Comment on above: Order Comment: Speci men Type: BLOOD SPECIMEN Ordering Facility: [facility] Address: [address] [place] [address] [place] [id number] Result Comment: This test was developed, and its performance characteristics determined by the Department of Pathology and Laboratory Medicine. It has not been cleared or approved by the FDA. The Department of Pathology and Laboratory Medicine is regulated under CLIA as qualified to perform high-complexity testing. This test is used for clinical purposes. It should not be regarded as investigational or for research. Performed By: #### 5 763-8 #### [facility] CLIA [id number] [address] [place] [address] [place] cCP IgG SerPl-aCncon 04-2 024 Cyclic citrullinated peptide IgG Qn <15 Normal <20 [facility] Comment on above: Order Comment: Speci men Type: BLOOD SPECIMEN [facility] Address: [address] [place] [address] Performed By: #### 5 763-8 #### [facility] CLIA [id number] [address] [place] [address] [place] CNOVon 09-13-2024 CNOV Office Visit ([facility] ) YUSUF MEDINA ([id number]) 1935 [facility] Date Time Provider Department 09/13/24 10:00 AM MIGDALIA CRAMER [facility] During your visit today, we recorded the [...] lipid panel in 6 months MD Bela Sanchez Kevin D, MD 09/13/2024 10:27 AM Signed Screening schedule [...] changes, you (more content not included)... Normal [facility] Arti 08-21-2024 [facility] Telephone ([facility]) YUSUF MEDINA ([id number]) 1935 [address] [place] Date Time Provider Department 08/21/24 MIGDALIA CRAMER [facility] During your visit today, we recorded the [...] currently out of the office. ,Willie Kaur APRN.Agustina Blackman 08/22/2024 8:09 AM Signed Patients [...] patient by: CAREGIVER José Miguel Swanson [facility] Problem List As Of Date 08/21/2024 Noted [...] 12/07/2017 Cervic (more content not included)... Normal [facility] ALBUMIN/CREATININE RATIO, UR INEon 08-14-2024 Albumin DL <= 20 mg/L (U) [Mass/Vol] 387.7 mg/L Normal [facility] Comment on above: Order Comment: Speci men Type: URINE SPECIMENOrdering Facility: [facility] Address: [address], [place] [address] Performed By: #### U ACR, 2888-6 ####[facility] [id number] [place] [address] [place] Albumin/Creatinine (U) [Mass ratio] 483 mg/g High <30 [facility] Comment on above: Order Comment: Speci men Type: URINE SPECIMENOrdering Facility: [facility] Address: [address] [place] [address] Result Comment: Adul t Male and Female Nephrotic Criteria: <30 mg/g is considered normal to mildly increased 30-300 mg/g is considered moderately increased >300 mg/g is considered severely increased KDIGO. (2013). KDIGO 2012 Clinical Practice Guideline for the Evaluation and Management of Chronic Kidney Disease. Official Journal of the International Society of Nephrology, 3(1), 1-150. Performed By: #### U ACR, 2886 ####[facility] [id number] [place] [address] [place] Creatinine (U) [Mass/Vol] 80.2 mg/dL Normal 20.0-300.0 [facility] Comment on above: Order Comment: Speci men Type: URINE SPECIMENOrdering Facility: [facility] Address: [address] [place] [address] Performed By: #### U ACR, 288[address] ####[facility] [id number] [place] [address] [place] Bacteria Ur Culton [...] technique or straight catheterization for???urine???collecti on. Normal [facility] Comment on above: Performed By: #### 6 30-4 ####[facility] [id number] [place] [address] [place] Basic metabolic 2000 panelon 08-14-2024 Anion gap [Moles/Vol] 13 mmol/L Normal 8-15 [facility] Comment on above: Order Comment: Speci men Type: BLOOD SPECIMEN [facility] Address: [address] [place] [address] Performed By: #### 1 3964-2 #### [facility] [facility] CLIA [id number] [address] [place] [address] [place] Calcium [Mass/Vol] 9.9 mg/dL Normal 8.5-10.2 [facility] Comment on above: Order Comment: Speci men Type: BLOOD SPECIMEN Ordering Facility: [facility] Address: [address] [place] [address] Performed By: #### 1 3964-2 #### [facility] CLIA [id number] [address] [place] [address] [place] Chloride [Moles/Vol] 96 mmol/L Low 98-107 [facility] Comment on above: Order Comment: Speci men Type: BLOOD SPECIMEN Ordering Facility: [facility] Address: [address] [place] [address] Performed By: #### 1 3964-2 #### [facility] CLIA [id number] [address] [place] [address] [place] CO2 [Moles/Vol] 24 mmol/L Normal 22-30 [facility] Comment on above: Order Comment: Speci men Type: BLOOD SPECIMEN Ordering Facility: [facility] Address: [address] [place] [address] Performed By: #### 1 3964-2 #### [facility] CLIA [id number] [address] [place], [place] [address] [place] Creatinine [Mass/Vol] 0.89 mg/dL Normal 0.58-0.96 [facility] Comment on above: Order Comment: Fan meade Type: BLOOD SPECIMEN Ordering Facility: [facility] Address: [address] [place] [address] Performed By: #### 1 3964-2 #### [facility] CLIA [id number] [address] [place] [address] [place] Creatinine and Glomerular filtration rate.predicted panel (S/P/Bld) 62 mL/min/1.73m??? Normal >=60 [facility] Comment on above: Order Comment: Fan meade Type: BLOOD SPECIMEN Ordering Facility: [facility] Address: [address] [place] [address] Result Comment: Hilda mated Glomerular Filtration Rate [...] reflect actual GFR. Performed By: #### 1 3964-2 #### [facility] CLIA [id number] [address] [place] [address] [place] Glucose [Mass/Vol] 245 mg/dL High 74-99 [facility] Comment on above: Order Comment: Fan meade Type: BLOOD SPECIMEN Ordering Facility: [facility] Address: [address] [place] [address] Result Comment: The [place] Diabetes [employer] (ADA) provides guidance for cutoff [...] Standards of Medical Care in Diabetes 2016, [place] [employer]. Diabetes Care. 2016.39(Suppl 1). Performed By: #### 1 3964-2 #### [facility] CLIA [id number] [address] [place] [address] [place] Potassium [Moles/Vol] 4.9 mmol/L Normal 3.7-5.1 [facility] Comment on above: Order Comment: Speci men Type: BLOOD SPECIMEN Ordering Facility: [facility] Address: [address] [place] [address] Performed By: #### 1 3964-2 #### [facility] CLIA [id number] [address] [place] [address] [place] Sodium [Moles/Vol] 133 mmol/L Low 136-144 [facility] Comment on above: Order Comment: Speci men Type: BLOOD SPECIMEN Ordering Facility: [facility] Address: [address] [place] [address] Performed By: #### 1 3964-2 #### [facility] CLIA [id number] [address] [place] [address] [place] Urea nitrogen [Mass/Vol] 29 mg/dL High 7-21 [facility] Comment on above: Order Comment: Speci men Type: BLOOD SPECIMEN Ordering Facility: [facility] Address: [address] [place] [address] Performed By: #### 1 3964-2 #### [facility] CLIA [id number] [address] [place] [address] [place] CBC W Ordered Manual Differe ntial panel (Bld)on 08-14-2024 Basophils (Bld) [#/Vol] 0.05 10*3/uL Normal <0.11 [facility] Comment on above: Order Comment: Speci men Type: BLOOD SPECIMENOrdering Facility: [facility] Address: [address] [place] [address] Performed By: #### 5 7782-5, 4537-7, STFREV ####[facility] [id number] [place] [address] [place] Basophils/100 WBC (Bld) 0.4 % Normal [facility] Comment on above: Order Comment: Speci men Type: BLOOD SPECIMENOrdering Facility: [facility] Address: [address] [place] [address] Performed By: #### 5 7782-5, 4537-7, STFREV ####[facility] [id number] [place] [address] [place] Differential cell count method Nom (Bld) Auto Normal [facility] Comment on above: Order Comment: Speci men Type: BLOOD SPECIMENOrdering Facility: [facility] Address: [address] [place] [address] Performed By: #### 5 7782-5, 4537-7, STFREV ####[facility] [id number] [place] [address] [place] Eosinophils (Bld) [#/Vol] 0.04 10*3/uL Normal <0.46 [facility] Comment on above: Order Comment: Speci men Type: BLOOD SPECIMENOrdering Facility: [facility] Address: [address] [place] [address] Performed By: #### 5 7782-5, 4537-7, STFREV ####[facility] [id number] [place] [address] [place] Eosinophils/100 WBC (Bld) 0.3 % Normal [facility] Comment on above: Order Comment: Speci men Type: BLOOD SPECIMENOrdering Facility: [facility] Address: [address] [place] [address] Performed By: #### 5 7782-5, 4537-7, STFREV ####[facility] [id number] [place] [address] [place] Erythrocyte distribution width (RBC) [Ratio] 14.9 % Normal 11.5-15.0 [facility] Comment on above: Order Comment: Speci men Type: BLOOD SPECIMENOrdering Facility: [facility] Address: [address] [place] [address] Performed By: #### 5 7782-5, 4537-7, STFREV ####[facility] [id number] [place] [address] [place] Hematocrit (Bld) [Volume fraction] 35.2 % Low 36.0-46.0 [facility] Comment on above: Order Comment: Speci men Type: BLOOD SPECIMENOrdering Facility: [facility] Address: [address] [place] [address] Performed By: #### 5 7782-5, 4537-7, STFREV ####[facility] [id number] [place] [address] [place] Hemoglobin (Bld) [Mass/Vol] 11.2 g/dL Low 11.5-15.5 [facility] Comment on above: Order Comment: Speci men Type: BLOOD SPECIMENOrdering Facility: [facility] Address: [address] [place] [address] Performed By: #### 5 7782-5, 4537-7, STFREV ####[facility] [id number] [place] [address] [place] Immature granulocytes (Bld) [#/Vol] 0.06 10*3/uL Normal <0.10 [facility] Comment on above: Order Comment: Speci men Type: BLOOD SPECIMENOrdering Facility: [facility] Address: [address] [place] [address] Performed By: #### 5 7782-5, 4537-7, STFREV ####[facility] [id number] [place] [address] [place] Immature granulocytes/100 WBC (Bld) 0.5 % Normal [facility] Comment on above: Order Comment: Speci men Type: BLOOD SPECIMENOrdering Facility: [facility] Address: [address] [place] [address] Performed By: #### 5 7782-5, 4537-7, STFREV ####[facility] [id number] [place] [address] [place] Lymphocytes (Bld) [#/Vol] 1.40 10*3/uL Normal 1.00-4.00 [facility] Comment on above: Order Comment: Speci men Type: BLOOD SPECIMENOrdering Facility: [facility] Address: [address] [place] [address] Performed By: #### 5 7782-5, 4537-7, STFREV ####[facility] [id number] [place] [address] [place] Lymphocytes/100 WBC (Bld) 11.3 % Normal [facility] Comment on above: Order Comment: Speci men Type: BLOOD SPECIMENOrdering Facility: [facility] Address: [address] [place] [address] Performed By: #### 5 7782-5, 4537-7, STFREV ####[facility] [id number] [place] [address] [place] MCH (RBC) [Entitic mass] 28.4 pg Normal 26.0-34.0 [facility] Comment on above: Order Comment: Speci men Type: BLOOD SPECIMENOrdering Facility: [facility] Address: [address] [place] [address] Performed By: #### 5 7782-5, 4537-7, STFREV ####[facility] [id number] [place] [address] [place] MCHC (RBC) [Mass/Vol] 31.8 g/dL Normal 30.5-36.0 [facility] Comment on above: Order Comment: Speci men Type: BLOOD SPECIMENOrdering Facility: [facility] Address: [address] [place] [address] Performed By: #### 5 7782-5, 4537-7, STFREV ####[facility] [id number] [place] [address] [place] MCV (RBC) [Entitic vol] 89.3 fL Normal 80.0-100.0 [facility] Comment on above: Order Comment: Speci men Type: BLOOD SPECIMENOrdering Facility: [facility] Address: [address] [place] [address] Performed By: #### 5 7782-5, 4537-7, STFRZAID ####[facility] [id number] [place] [address] [place] Monocytes (Bld) [#/Vol] 0.83 10*3/uL Normal <0.87 [facility] Comment on above: Order Comment: Speci men Type: BLOOD SPECIMENOrdering Facility: [facility] Address: [address] [place] [address] Performed By: #### 5 7782-5, 4537-7, STFREV ####[facility] [id number] [place] [address] [place] Monocytes/100 WBC (Bld) 6.7 % Normal [facility] Comment on above: Order Comment: Speci men Type: BLOOD SPECIMENOrdering Facility: [facility] Address: [address] [place] [address] Performed By: #### 5 7782-5, 4537-7, STFREV ####[facility] [id number] [place] [address] [place] Neutrophils (Bld) [#/Vol] 10.03 10*3/uL High 1.45-7.50 [facility] Comment on above: Order Comment: Speci men Type: BLOOD SPECIMENOrdering Facility: [facility] Address: [address] [place] [address] Performed By: #### 5 7782-5, 4537-7, STFREV ####[facility] [id number] [place] [address] [place] Neutrophils/100 WBC (Bld) 80.8 % Normal [facility] Comment on above: Order Comment: Speci men Type: BLOOD SPECIMENOrdering Facility: [facility] Address: [address] [place] [address] Performed By: #### 5 7782-5, 4537-7, STFREV ####[facility] [id number] [place] [address] [place] Nucleated RBC (Bld) [#/Vol] 10*3/uL Normal <0.01 [facility] Comment on above: Order Comment: Speci men Type: BLOOD SPECIMENOrdering Facility: [facility] Address: [address] [place] [address] Performed By: #### 5 7782-5, 4537-7, STFREV ####[facility] [id number] [place] [address] [place] Nucleated RBC/100 WBC (Bld) [Ratio] 0.0 /100 WBC Normal [facility] Comment on above: Order Comment: Speci men Type: BLOOD SPECIMENOrdering Facility: [facility] Address: [address] [place] [address] Performed By: #### 5 7782-5, 4537-7, STFREV ####[facility] [id number] [place] [address] [place] Platelet mean volume (Bld) [Entitic vol] 10.2 fL Normal 9.0-12.7 [facility] Comment on above: Order Comment: Speci men Type: BLOOD SPECIMENOrdering Facility: [facility] Address: [address] [place] [address] Performed By: #### 5 7782-5, 4537-7, STFREV ####[facility] [id number] [place] [id number] [place] Platelets (Bld) [#/Vol] 330 10*3/uL Normal 150-400 [facility] Comment on above: Order Comment: Speci men Type: BLOOD SPECIMENOrdering Facility: [facility] Address: [address] [place] [address] Performed By: #### 5 7782-5, 4537-7, STFREV ####[facility] [id number] [place] [address] [place] RBC (Bld) [#/Vol] 3.94 10*6/uL Normal 3.90-5.20 [facility] Comment on above: Order Comment: Speci men Type: BLOOD SPECIMENOrdering Facility: [facility] Address: [address] [place] [address] Performed By: #### 5 7782-5, 4537-7, STFREV ####[facility] [id number] [place] [address] [place] WBC (Bld) [#/Vol] 12.41 10*3/uL High 3.70-11.00 [facility] Comment on above: Order Comment: Speci men Type: BLOOD SPECIMENOrdering Facility: [facility] Address: [address] [place] [address] Performed By: #### 5 7782-5, 4537-7, STFREV ####[facility] [id number] [place] [id number] [place] CNOVon 08-14-2024 CNOV Office Visit ([facility] ) YUSUF MEDINA ([id number]) 1935 F [place]BERTO Date Time Provider Department 08/14/24 10:40 AM MIGDALIA CRAMER [facility] During your visit today, we recorded the [...] COMBINE WITH DICLOFENAC GEL blood sugar diagnostic (ONETOUCH ULTRA TEST) test [...] no acute (more content not included)... Normal [facility] CRP SerPl-mCncon 08-14-2024 CRP [Mass/Vol] 7.8 mg/dL High <0.9 [facility] Comment on above: Order Comment: Speci men Type: BLOOD SPECIMEN Ordering Facility: [facility] Address: [address] [place] [address] Performed By: #### 1 3964-2 #### [facility] CLIA [id number] [address] [place] [address] [place] ESR Westergren method (Bld) [Velocity]on 08-14-2024 ESR (Bld) [Velocity] 40 mm/h [facility]-20 [facility] Comment on above: Order Comment: Speci men Type: BLOOD SPECIMENOrdering Facility: [facility] Address: [address] [place] [address] Performed By: #### 5 7782-5, 4537-7, STFREV ####[facility] [id number] [place] [address] [place] HbA1c (Bld)on 08-14-2024 Average glucose Estimated from glycated hemoglobin (Bld) [Mass/Vol] 197 mg/dL Normal [facility] Comment on above: Order Comment: Speci men Type: BLOOD SPECIMENOrdering Facility: [facility] Address: [address] [place] [address] Result Comment: eAG: (Estimated average glucose) is a calculated value from HgbA1c and is pharmaceutical specialty representative of the average blood glucose level in the last 2-3 month period. Performed By: #### 5 5454-3 ####[facility] [id number] [place] [address] [place] HbA1c (Bld) [Mass fraction] 8.5 % High 4.3-5.6 [facility] Comment on above: Order Comment: Fan meade Type: BLOOD SPECIMENOrdering Facility: [facility] Address: [address] [place] [address] Result Comment: [place] Diabetes Association guidelines indicate that patients with HgbA1c in the range 5.7-6.4% are at increased risk for development of diabetes, and intervention by lifestyle modification may be beneficial. HgbA1c greater or equal to 6.5% is considered diagnostic of diabetes. Performed By: #### 5 5454-3 ####[facility] [id number] [address] [place] PATHOLOGIST INTERPRETATION C BC/DIFFon 08-14-2024 [employer] review Mckay (Unsp spec) [Interp] No review performed. Normal [facility] Comment on above: Order Comment: Fan meade Type: BLOOD SPECIMENOrdering Facility: [facility] Address: [address] [place] [address] Performed By: #### 5 7782-5, 4537-7, STFREV ####[facility] [id number] [address] [place] STAFF REVIEW, CBCDIF Normal [facility] Comment on above: Order Comment: Fan meade Type: BLOOD SPECIMENOrdering Facility: [facility] Address: [address] [place] [address] Result Comment: The Pathologist Interpretation on this sample was cancelled because the hematology analyzer did not flag any parameters as requiring manual review. If there is a specific clinical concern for which you would like a pathologist to review the blood smear, please call Lab Client Services within 28 days. Performed By: #### 5 7782-5, 4537-7, STFREV ####[facility] [id number] [place] [address] [place] PROTEIN ELECTROPHORESIS SERU M (P)on 08-14-2024 Albumin [Mass/Vol] 3.80 g/dL Normal 3.43-5.41 [facility] Comment on above: Order Comment: Speci men Type: BLOOD SPECIMEN Order[facility] Address: [address] [place] [address] Performed By: #### 5 763-8 #### [facility] CLIA [id number] [address] [place] [address] [place] Alpha 1 globulin Elph [Mass/Vol] 0.46 g/dL High 0.18-0.43 [facility] Comment on above: Order Comment: Speci men Type: BLOOD SPECIMEN Order[facility]: [facility] Address: [address] [place] [address] Performed By: #### 5 763-8 #### [facility] CLIA [id number] [address] [place] [address] [place] Alpha 2 globulin Elph [Mass/Vol] 1.03 g/dL High 0.42-0.98 [facility] Comment on above: Order Comment: Speci men Type: BLOOD SPECIMEN Order[facility] Facility: [facility] Address: [address] [place] [address] Performed By: #### 5 763-8 #### [facility] CLIA [id number] [address] [place] [address] [place] Beta globulin Elph [Mass/Vol] 0.84 g/dL Normal 0.61-1.17 [facility] Comment on above: Order Comment: Speci men Type: BLOOD SPECIMEN Order[facility]: [facility] Address: [address] [place] [address] Performed By: #### 5 763-8 #### [facility] CLIA [id number] [address] [place] [address] [place] Gamma globulin Elph [Mass/Vol] 0.58 g/dL Normal 0.53-1.51 [facility] Comment on above: Order Comment: Fan meade Type: BLOOD SPECIMEN [facility]: [facility] Address: [address] [place] [address] Performed By: #### 5 763-8 #### [facility] CLIA [id number] [address] [place] [address] [place] INTERPRETATION COMMENT FOR PROTEIN ELECTROPHORESIS The atypical region is relatively poorly defined and may represent an unusual presentation of polyclonal immunoglobulins, but cannot rule out the presence of a low level M protein. If clinically indicated, monoclonal protein analysis and serum free light chain analysis are suggested to evaluate further for monoclonal gammopathy. Normal [facility] Comment on above: Order Comment: Fan meade Type: BLOOD SPECIMEN [facility] Address: [address] [place] [address] Performed By: #### 5 763-8 #### [facility] CLIA [id number] [address] [place] [address] [place] M-PROTEIN LOCATION Normal [facility] Comment on above: Order Comment: Fan meade Type: BLOOD SPECIMEN [facility] Address: [address] [place] [address] Result Comment: Not Applicable. Performed By: #### 5 763-8 #### [facility] CLIA [id number] [address] [place], [place] [address] [place] Protein Fractions [Interp] An atypical region of restricted mobility is identified on protein electrophoresis. Abnormal No definitive M protein is identified on protein electrophore sis. [facility] Comment on above: Order Comment: Fan meade Type: BLOOD SPECIMEN [facility] Address: [address] [place] [address] Performed By: #### 5 763-8 #### [facility] CLIA [id number] [address] [place] [address] [place] Protein.monoclonal Elph [Mass/Vol] 0.00 g/dL Normal <=0.00 [facility] Comment on above: Order Comment: Speci men Type: BLOOD SPECIMEN [facility]ing Facility: [facility] Address: [address] [place] [address] Performed By: #### 5 763-8 #### [facility] CLIA [id number] [address] [place] [address] [place] SPE STAFF REVIEW Reviewed by Tanisha Sanchez MD [facility] Comment on above: Order Comment: Speci men Type: BLOOD SPECIMEN [facility] Address: [address] [place] [address] Performed By: #### 5 763-8 #### [facility] CLIA [id number] [address] [place] [address] [place] Prot SerPl-mCncon 08-14-2024 Protein [Mass/Vol] 6.7 g/dL Normal 6.3-8.0 [facility] Comment on above: Order Comment: Speci men Type: BLOOD SPECIMEN [facility] Address: [address] [place] [address] Performed By: #### 1 3964-2 #### [facility] CLIA [id number] [address] [place] [address] [place] Prot Ur-mCncon 08-14-2024 Protein (U) [Mass/Vol] 78 mg/dL High 0-20 [facility] Comment on above: Order Comment: Speci men Type: URINE SPECIMENOrdering Facility: [facility] Address: [address] [place] [address] Performed By: #### U ACR, 2888-6 ####[facility] [id number] [place] [address] [place] TSH SerPl-aCncon 08-14-2024 TSH Qn 1.120 m[IU]/L Normal 0.270-4.200 [facility] Comment on above: Order Comment: Speci men Type: BLOOD SPECIMEN [facility]: [facility] Address: [address] [place] [address] Performed By: #### 1 3964-2 #### [facility] CLIA [id number] [address] [place] [address] [place] URINALYSIS, DIPSTICK ONLYon 08-14-2024 Bilirubin Ql (U) Negative Normal Negative [facility] Comment on above: Order Comment: Speci men Type: BLOOD SPECIMEN [facility] Address: [address] [place] [address] Performed By: #### 2 132-9, 2283-8 #### [facility] CLIA [id number] [address] [place] [address] [place] Clarity (Unsp spec) Clear Normal [facility] Comment on above: Order Comment: Speci men Type: BLOOD SPECIMEN [facility] Address: [address] [place] [address] Performed By: #### 2 132-9, 8 #### [facility] CLIA [id number] [address] [place] [address] [place] Color (U) Yellow Normal Yellow [facility] Comment on above: Order Comment: Speci men Type: BLOOD SPECIMEN [facility] Address: [address] [place] [address] Performed By: #### 2 132-9, 2283-8 #### [facility] CLIA [id number] [address] [place] [address] [place] Glucose Test strip (U) [Mass/Vol] 1+ Abnormal Negative [facility] Comment on above: Order Comment: Speci men Type: BLOOD SPECIMEN Ordering Facility: [facility] Address: [address] [place] [address] Performed By: #### 2 132-9, 8 #### [facility] CLIA [id number] [facility] [place] [id number] [place] Hemoglobin Ql (U) Negative Normal Negative [facility] Comment on above: Order Comment: Speci men Type: BLOOD SPECIMEN Ordering Facility: [facility] Address: [address] [place] [address] Performed By: #### 2 132-9, 8 #### [facility] CLIA [id number] [address] [place] [address] [place] Ketones Ql (U) Negative Normal Negative [facility] Comment on above: Order Comment: Speci men Type: BLOOD SPECIMEN Ordering Facility: [facility] Address: [address] [place] [address] Performed By: #### 2 132-9, 8 #### [facility] CLIA [id number] [address] [place] [address] [place] Leukocyte esterase Test strip Ql (U) Negative Normal Negative [facility] Comment on above: Order Comment: Speci men Type: BLOOD SPECIMEN Ordering Facility: [facility] Address: [address] [place] [address] Performed By: #### 2 132-9, 8 #### [facility] CLIA [id number] [address] [place] [address] [place] Nitrite Ql (U) Negative Normal Negative [facility] Comment on above: Order Comment: Speci men Type: BLOOD SPECIMEN Ordering Facility: [facility] Address: [address] [place], [place] [address] Performed By: #### 2 132-9, 8 #### [facility] CLIA [id number] [address] [place], [place] [address] [place] pH (U) 6.5 [pH] Normal <8.5 [facility] Comment on above: Order Comment: Speci men Type: BLOOD SPECIMEN Ordering Facility: [facility] Address: [address] [place] [address] Performed By: #### 2 132-9, 8 #### [facility] CLIA [id number] [address] [place] [address] [place] Protein (U) [Mass/Vol] 2+ Abnormal Negative [facility] Comment on above: Order Comment: Speci men Type: BLOOD SPECIMEN Ordering Facility: [facility] Address: [address] [place] [address] Performed By: #### 2 132-9, 8 #### [facility] CLIA [id number] [address] [place] [address] [place] Specific gravity (U) [Rel density] 1.020 Normal 1.005-1.030 [facility] Comment on above: Order Comment: Speci men Type: BLOOD SPECIMEN Ordering Facility: [facility] Address: [address] [place] [address] Performed By: #### 2 132-9, 8 #### [facility] CLIA [id number] [address] [place] [address] [place] Urobilinogen Ql (U) 1.0 EU/dL Normal 0.2-1.0 EU/dL [facility] Comment on above: Order Comment: Speci men Type: BLOOD SPECIMEN Ordering Facility: [facility] Address: [address] [place] [address] Performed By: #### 2 132-9, 8 #### [facility] CLIA [id number] [address] [place] [address] [place] URINE PROTEIN ELECTROPHORESI S RANDOM (P)on 08-14-2024 Albumin Elph (U) [Mass fraction] 69.11 % Normal [facility] Comment on above: Order Comment: Speci men Type: URINE SPECIMENOrdering Facility: [facility] Address: [address] [place] [address] Performed By: #### L [id number] ####[facility] [id number] [place] [address] [place] Alpha 1 globulin Elph (U) [Mass fraction] 7.87 % Normal [facility] Comment on above: Order Comment: Speci men Type: URINE SPECIMENOrdering Facility: [facility] Address: [address] [place] [address] Performed By: #### L [id number] ####[facility] [id number] [place] [address] [place] Alpha 2 globulin Elph (U) [Mass fraction] 6.40 % Normal [facility] Comment on above: Order Comment: Speci men Type: URINE SPECIMENOrdering Facility: [facility] Address: [address] [place] [address] Performed By: #### L [id number] ####[facility] [id number] [place] [address] [place] Beta globulin Elph (U) [Mass fraction] 11.20 % Normal [facility] Comment on above: Order Comment: Speci men Type: URINE SPECIMENOrdering Facility: [facility] Address: [address] [place] [address] Performed By: #### L [id number] ####[facility] [id number] [place] [address] [place] Gamma globulin Elph (U) [Mass fraction] 5.42 % Normal [facility] Comment on above: Order Comment: Speci men Type: URINE SPECIMENOrdering Facility: [facility] Address: [address] [place] [address] Performed By: #### L [id number] ####[facility] [id number] [place] [address] [place] Protein Fractions Elph Mckay (U) [Interp] No definitive M protein is identified on protein electrophoresis. Normal No definitive M protein is identified on protein electrophore sis. [facility] Comment on above: Order Comment: Speci men Type: URINE SPECIMENOrdering Facility: [facility] Address: [address] [place] [address] Performed By: #### L [id number] ####[facility] [id number] [address] STAFF REVIEW (URINE ELECTRO) Reviewed by Brianne Mosley M.D., Ph.D Normal [facility] Comment on above: Order Comment: Speci men Type: URINE SPECIMENOrdering Facility: [facility] Address: [address] [place] [address] Performed By: #### L [id number] ####[facility] [id number] [address] ALLIED HEALTHon 08-13-2024 ALLIED HEALTH HNO ID: [id number] Author: TYESHA CHENEY RT(Kenna) Service: Radiology Author Type: Technologist Type: Allied [...] PATIENT PRESENTS WITH AN IMPLANTABLE OR ATTACHED CUTTER OUT: No RADIOLOGY DEPARTMENT: General X-ray: Exam(s) Completed: Chest X-Ray PERIPHERAL IV DATA: Not applicable SIGNED BY: RT Carolina(Kenna) August 13, 2024 3:49 PM [facility] CBC W Auto Differential pane l (Bld)on 08-13-2024 Basophils (Bld) [#/Vol] 0.03 10*3/uL Normal <0.11 [facility] Comment on above: Order Comment: Speci men Type: BLOOD SPECIMEN Ordering Facility: [facility] Address: [address] [place] [address] Performed By: #### 5 7021-8 #### [facility] CLIA [id number] [address] [place] [address] [place] Basophils/100 WBC (Bld) 0.2 % Normal [facility] Comment on above: Order Comment: Speci men Type: BLOOD SPECIMEN Ordering Facility: [facility] Address: [address] [place] [address] Performed By: #### 5 7021-8 #### [facility] CLIA [id number] [address] [place] [address] [place] Differential cell count method Nom (Bld) Auto Normal [facility] Comment on above: Order Comment: Speci men Type: BLOOD SPECIMEN Ordering Facility: [facility] Address: [address] [place] [address] Performed By: #### 5 7021-8 #### [facility] CLIA [id number] [address] [place] [address] [place] Eosinophils (Bld) [#/Vol] 10*3/uL Normal <0.46 [facility] Comment on above: Order Comment: Speci men Type: BLOOD SPECIMEN Ordering Facility: [facility] Address: [address] [place] [address] Performed By: #### 5 7021-8 #### [facility] CLIA [id number] [address] [place] [address] [place] Eosinophils/100 WBC (Bld) 0.1 % Normal [facility] Comment on above: Order Comment: Speci men Type: BLOOD SPECIMEN Ordering Facility: [facility] Address: [address] [place] [address] Performed By: #### 5 7021-8 #### [facility] CLIA [id number] [address] [place] [address] [place] Erythrocyte distribution width (RBC) [Ratio] 14.6 % Normal 11.5-15.0 [facility] Comment on above: Order Comment: Speci men Type: BLOOD SPECIMEN Ordering Facility: [facility] Address: [address] [place] [address] Performed By: #### 5 7021-8 #### [facility] CLIA [id number] [address] [place] [address] [place] Hematocrit (Bld) [Volume fraction] 33.5 % Low 36.0-46.0 [facility] Comment on above: Order Comment: Speci men Type: BLOOD SPECIMEN Ordering Facility: [facility] Address: [address] [place] [address] Performed By: #### 5 7021-8 #### [facility] CLIA [id number] [address] [place] [address] [place] Hemoglobin (Bld) [Mass/Vol] 10.9 g/dL Low 11.5-15.5 [facility] Comment on above: Order Comment: Speci men Type: BLOOD SPECIMEN Ordering Facility: [facility] Address: [address] [place] [address] Performed By: #### 5 7021-8 #### [facility] CLIA [id number] [address] [place] [address] [place] Immature granulocytes (Bld) [#/Vol] 0.09 10*3/uL Normal <0.10 [facility] Comment on above: Order Comment: Speci men Type: BLOOD SPECIMEN Ordering Facility: [facility] Address: [address] [place] [address] Performed By: #### 5 7021-8 #### [facility] CLIA [id number] [address] [place] [address] [place] Immature granulocytes/100 WBC (Bld) 0.5 % Normal [facility] Comment on above: Order Comment: Speci men Type: BLOOD SPECIMEN Ordering Facility: [facility] Address: [address] [place] [address] Performed By: #### 5 7021-8 #### [facility] CLIA [id number] [address] [place] Lymphocytes (Bld) [#/Vol] 0.91 10*3/uL Low 1.00-4.00 [facility] Comment on above: Order Comment: Speci men Type: BLOOD SPECIMEN Ordering Facility: [facility] Address: [address] [place] [address] Performed By: #### 5 7021-8 #### [facility] CLIA [id number] [address] [place] [address] [place] Lymphocytes/100 WBC (Bld) 5.3 % Normal [facility] Comment on above: Order Comment: Speci men Type: BLOOD SPECIMEN Ordering Facility: [facility] Address: [address] [place] [address] Performed By: #### 5 7021-8 #### [facility] CLIA [id number] [address] [place] [address] [place] MCH (RBC) [Entitic mass] 28.6 pg Normal 26.0-34.0 [facility] Comment on above: Order Comment: Speci men Type: BLOOD SPECIMEN Ordering Facility: [facility] Address: [address] [place] [address] Performed By: #### 5 7021-8 #### [facility] CLIA [id number] [address] [place] MCHC (RBC) [Mass/Vol] 32.5 g/dL Normal 30.5-36.0 [facility] Comment on above: Order Comment: Speci men Type: BLOOD SPECIMEN Ordering Facility: [facility] Address: [address] [place] [address] Performed By: #### 5 7021-8 #### [facility] CLIA [id number] [address] [place] [address] [place] MCV (RBC) [Entitic vol] 87.9 fL Normal 80.0-100.0 [facility] Comment on above: Order Comment: Speci men Type: BLOOD SPECIMEN Ordering Facility: [facility] Address: [address] [place] [address] Performed By: #### 5 7021-8 #### [facility] CLIA [id number] [address] [place] [address] [place] Monocytes (Bld) [#/Vol] 0.91 10*3/uL High <0.87 [facility] Comment on above: Order Comment: Speci men Type: BLOOD SPECIMEN Ordering Facility: [facility] Address: [address] [place] [address] Performed By: #### 5 7021-8 #### [facility] CLIA [id number] [address] [place] [address] [place] Monocytes/100 WBC (Bld) 5.3 % Normal [facility] Comment on above: Order Comment: Speci men Type: BLOOD SPECIMEN Ordering Facility: [facility] Address: [address] [place] [address] Performed By: #### 5 7021-8 #### [facility] CLIA [id number] [address] [place] [address] [place] Neutrophils (Bld) [#/Vol] 15.20 10*3/uL High 1.45-7.50 [facility] Comment on above: Order Comment: Speci men Type: BLOOD SPECIMEN Ordering Facility: [facility] Address: [address] [place] [address] Performed By: #### 5 7021-8 #### [facility] CLIA [id number] [address] [place] [address] [place] Neutrophils/100 WBC (Bld) 88.6 % Normal [facility] Comment on above: Order Comment: Speci men Type: BLOOD SPECIMEN Ordering Facility: [facility] Address: [address] [place] [address] Performed By: #### 5 7021-8 #### [facility] CLIA [id number] [address] [place] [address] [place] Nucleated RBC (Bld) [#/Vol] 10*3/uL Normal <0.01 [facility] Comment on above: Order Comment: Speci men Type: BLOOD SPECIMEN Ordering Facility: [facility] Address: [address] [place] [address] Performed By: #### 5 7021-8 #### [facility] CLIA [id number] [address] [place] [address] [place] Nucleated RBC/100 WBC (Bld) [Ratio] 0.0 /100 WBC Normal [facility] Comment on above: Order Comment: Speci men Type: BLOOD SPECIMEN Ordering Facility: [facility] Address: [address] [place] [address] Performed By: #### 5 7021-8 #### [facility] CLIA [id number] [address] [place] [address] [place] Platelet mean volume (Bld) [Entitic vol] 9.0 fL Normal 9.0-12.7 [facility] Comment on above: Order Comment: Speci men Type: BLOOD SPECIMEN Ordering Facility: [facility] Address: [address] [place] [address] Performed By: #### 5 7021-8 #### [facility] CLIA [id number] [address] [place] [address] [place] Platelets (Bld) [#/Vol] 321 10*3/uL Normal 150-400 [facility] Comment on above: Order Comment: Speci men Type: BLOOD SPECIMEN Ordering Facility: [facility] Address: [address] [place] [address] Performed By: #### 5 7021-8 #### [facility] CLIA [id number] [address] [place] [address] [place] RBC (Bld) [#/Vol] 3.81 10*6/uL Low 3.90-5.20 [facility] Comment on above: Order Comment: Speci men Type: BLOOD SPECIMEN Ordering Facility: [facility] Address: [address] [place] [address] Performed By: #### 5 7021-8 #### [facility] CLIA [id number] [address] [place] [address] [place] WBC (Bld) [#/Vol] 17.15 10*3/uL High 3.70-11.00 [facility] Comment on above: Order Comment: Speci men Type: BLOOD SPECIMEN Ordering Facility: [facility] Address: [address] [place] [address] Performed By: #### 5 7021-8 #### [facility] CLIA [id number] [address] [place] [address] [place] CK SerPl-cCncon 08-13-2024 CK [Catalytic activity/Vol] 56 U/L Normal 42-196 [facility] Comment on above: Order Comment: Speci men Type: BLOOD SPECIMEN Ordering Facility: [facility] Address: [address] [place] [address] Performed By: #### 5 7021-8 #### [facility] CLIA [id number] [address] [place] [address] [place] Comprehensive metabolic 2000 panelon 08-13-2024 Albumin [Mass/Vol] 4.0 g/dL Normal 3.9-4.9 [facility] Comment on above: Order Comment: Speci men Type: BLOOD SPECIMEN Ordering Facility: [facility] Address: [address] [place] [address] Performed By: #### 5 763-8 #### [facility] CLIA [id number] [address] [place] [id number] [place] [address] [place] ALP [Catalytic activity/Vol] 99 U/L Normal 34-123 [facility] Comment on above: Order Comment: Speci men Type: BLOOD SPECIMEN Ordering Facility: [facility] Address: [address] [place] [address] Performed By: #### 5 763-8 #### [facility] CLIA [id number] [address] [place] [address] [place] ALT [Catalytic activity/Vol] 15 U/L Normal 7-38 [facility] Comment on above: Order Comment: Speci men Type: BLOOD SPECIMEN Ordering Facility: [facility] Address: [address] [place] [address] Performed By: #### 5 763-8 #### [facility] CLIA [id number] [address] [place] [address] [place] Anion gap [Moles/Vol] 14 mmol/L Normal 8-15 [facility] Comment on above: Order Comment: Speci men Type: BLOOD SPECIMEN Ordering Facility: [facility] Address: [address] [place] [address] Performed By: #### 5 763-8 #### [facility] CLIA [id number] [address] [place] [address] [place] AST [Catalytic activity/Vol] 18 U/L Normal 13-35 [facility] Comment on above: Order Comment: Speci men Type: BLOOD SPECIMEN Ordering Facility: [facility] Address: [address] [place] [address] Performed By: #### 5 763-8 #### [facility] CLIA [id number] [address] [place] [address] [place] Bilirubin [Mass/Vol] 0.2 mg/dL Normal 0.2-1.3 [facility] Comment on above: Order Comment: Speci men Type: BLOOD SPECIMEN Ordering Facility: [facility] Address: [address] [place] [address] Performed By: #### 5 763-8 #### [facility] CLIA [id number] [address] [place] [address] [place] Calcium [Mass/Vol] 9.2 mg/dL Normal 8.5-10.2 [facility] Comment on above: Order Comment: Speci men Type: BLOOD SPECIMEN Ordering Facility: [facility] Address: [address] [place] [address] Performed By: #### 5 763-8 #### [facility] CLIA [id number] [address] [place] [address] [place] Chloride [Moles/Vol] 96 mmol/L Low 98-107 [facility] Comment on above: Order Comment: Speci men Type: BLOOD SPECIMEN Ordering Facility: [facility] Address: [address] [place] [address] Performed By: #### 5 763-8 #### [facility] CLIA [id number] [address] [place] [address] [place] CO2 [Moles/Vol] 24 mmol/L Normal 22-30 [facility] Comment on above: Order Comment: Speci men Type: BLOOD SPECIMEN Ordering Facility: [facility] Address: [address] [place] [address] Performed By: #### 5 763-8 #### [facility] CLIA [id number] [address] [place] [address] [place] Creatinine [Mass/Vol] 0.87 mg/dL Normal 0.58-0.96 [facility] Comment on above: Order Comment: Speci men Type: BLOOD SPECIMEN Ordering Facility: [facility] Address: [address] [place] [address] Performed By: #### 5 763-8 #### [facility] CLIA [id number] [address] [place] [address] [place] Creatinine and Glomerular filtration rate.predicted panel (S/P/Bld) 64 mL/min/1.73m??? Normal >=60 [facility] Comment on above: Order Comment: Speci men Type: BLOOD SPECIMEN Ordering Facility: [facility] Address: [address] [place] [address] Result Comment: Hilda mated Glomerular Filtration Rate [...] accurately reflect actual GFR. Performed By: #### 5 763-8 #### [facility] CLIA [id number] [address] [place] [address] [place] Glucose [Mass/Vol] 212 mg/dL High 74-99 [facility] Comment on above: Order Comment: Specleroy meade Type: BLOOD SPECIMEN Ordering Facility: [facility] Address: [address] [place] [address] Result Comment: The [place] [employer] (ADA) provides guidance for cutoff [...] Standards of Medical Care in Diabetes 2016, [place] [employer]. Diabetes Care. 2016.39(Suppl 1). Performed By: #### 5 763-8 #### [facility] CLIA [id number] [address] [place] [address] [place] Potassium [Moles/Vol] 4.6 mmol/L Normal 3.7-5.1 [facility] Comment on above: Order Comment: Fan meade Type: BLOOD SPECIMEN Ordering Facility: [facility] Address: [address] [place] [address] Performed By: #### 5 763-8 #### [facility] CLIA [id number] [address] [place] [address] [place] Protein [Mass/Vol] 6.5 g/dL Normal 6.3-8.0 [facility] Comment on above: Order Comment: Speci men Type: BLOOD SPECIMEN Ordering Facility: [facility] Address: [address] [place] [address] Performed By: #### 5 763-8 #### [facility] CLIA [id number] [address] [place] [address] [place] Sodium [Moles/Vol] 134 mmol/L Low 136-144 [facility] Comment on above: Order Comment: Speci men Type: BLOOD SPECIMEN Ordering Facility: [facility] Address: [address] [place] [address] Performed By: #### 5 763-8 #### [facility] CLIA [id number] [address] [place] [address] [place] Urea nitrogen [Mass/Vol] 29 mg/dL High 7-21 [facility] Comment on above: Order Comment: Speci men Type: BLOOD SPECIMEN Ordering Facility: [facility] Address: [address] [place] [address] Performed By: #### 5 763-8 #### [facility] CLIA [id number] [address] [place] [address] [place] ECG COMPLETEon 08-13-2024 ECG COMPLETE Ventricular Rate : 9 7 BPM Atrial Rate : 97 BPM P-R Interval : 174 ms QRS Duration : 78 ms Q-T Interval : 328 ms QTC Calculation(Bazett) : 416 ms Calculated P Reliance : 64 degrees Calculated R Reliance : 29 degrees Calculated T Reliance : 68 degrees SINUS RHYTHM WITH PREMATURE ATRIAL COMPLEXES CANNOT EXCLUDE ANTERIOR MYOCARDIAL INFARCTION , AGE UNDETERMINED ABNORMAL ECG 1402 08/13/2024 Confirmed by DO ROMO ALAN ([id number]), design editor CAROLINA MERRITT ([id number]) on 08/14/2024 8:29:13 AM NAME : YUSUF MEDINA PID : [id number] : 1935 Gender : Female Race : ORD : [id number] Procedure Date : Aug 13 2024 14:04:37 Edit Date : Aug 14 2024 08:29:17 Diagnosis: SINUS RHYTHM WITH PREMATURE ATRIAL COMPLEXES CANNOT EXCLUDE ANTERIOR MYOCARDIAL INFARCTION , AGE UNDETERMINED ABNORMAL ECG 1402 08/13/2024 Confirmed by DO ROMO ALAN ([id number]), design editor CAROLINA MERRITT ([id number]) on 08/14/2024 8:29:13 AM Test Reason : Chest Pain Location : 215 : [facility] [id number] Overread By : DO ROMO ALAN Edited By : CAROLINA MERRITT Referred By : , Acquired by : Ally MURGUIA [facility] ED NOTEon 08-13-2024 ED NOTE HNO ID: [id number] Author: ELIF SAM RN Service: Nursing Author Type: Registered Nurse Type: ED Notes Filed: 08/13/2024 17:42 Note Text: Pt given discharge instructions. Verbalized understanding. Pt taken to daughters car by wheelchair. Normal [facility] ED NOTE HNO ID: [id number] Author: KONSTANTIN FLORES RN Service: Nursing Author [...] staff of any changes in condition. Normal [facility] ED PROV NOTEon 08-13-2024 ED PROV NOTE HNO ID: [id number] Author: MARIUSZ ROMO DO Service: Emergency Medicine [...] better. Her daughter is translating. They speak Ivorian. She does not want me to call an additional non licensed nuclear plant operator. Patient does not have headache. No posterior head or neck pain. No chest pain. No thoracic lumbar back pain. No abdominal pain. No dysuria. No urinary frequency. No diarrhea. No constipation. She really is without complaints. She believes she has been eating fine. Her daughter adds that sometimes when they put her pill farm planner medications together she takes both a.m. [...] - REMV CATARACT EXTRACAP,INSERT LENS Bilateral 2020 [facility] FAMILY HISTORY Problem Relation Age of Onset [...] / D (more content not included)... Normal [facility] HIGH SENSITIVITY TROPONIN T (INITIAL)on 08-13-2024 Troponin T.cardiac High sensitivity method [Mass/Vol] 30 ng/L High <12 [facility] Comment on above: Order Comment: Speci men Type: BLOOD SPECIMEN Ordering Facility: [facility] Address: [address] [place] [address] Performed By: #### 5 763-8 #### [facility] CLIA [id number] [address] [place] [address] [place] HIGH SENSITIVITY TROPONIN T (SECOND)on 08-13-2024 Troponin T.cardiac High sensitivity method [Mass/Vol] 29 ng/L High <12 [facility] Comment on above: Order Comment: Fan meade Type: BLOOD SPECIMENOrdering Facility: [facility] Address: [address] [place] [address] Performed By: #### L [id number] ###[facility]ATORYCLIA [id number] [place] [address] [place] PT panel Coag (PPP)on 2023 INR Coag (PPP) [Relative time] 1.0 {INR} Normal 0.9-1.3 [facility] Comment on above: Order Comment: Fan meade Type: BLOOD SPECIMENOrdering Facility: [facility] Address: [address] [place] [address] Result Comment: Kendra min K Antagonist (VKA) Therapeutic Range: INR 2 to 3 (Target INR of 2.5) Note: For patients treated with VKA drugs, such as warfarin, the [place] [employer] 2012 Guideline recommends [...] to 3.5 (target INR of 3). Norma TURNER, et al. Chest 2012, 141:7S-47S John TORRES et al. JAC 2017, 70: 252-289 Performed By: #### 3 4528-0 ###[facility]ATORYCLIA [id number] [place] [address] [place] PT Coag (PPP) [Time] 10.6 s Normal 9.7-13.0 [facility] Comment on above: Order Comment: Speci men Type: BLOOD SPECIMENOrdering Facility: [facility] Address: [address] [place] [address] Performed By: #### 3 4528-0 ####[facility]ORYCLIA [id number] [place] [address] [place] Urinalysis complete panel (U )on 08-13-2024 Bilirubin Ql (U) Negative Normal Negative [facility] Comment on above: Order Comment: Speci men Type: BLOOD SPECIMEN Ordering Facility: [facility] Address: [address] [place] [address] Performed By: #### 2 132-9, 2283-8 #### [facility] CLIA [id number] [address] [place] [address] [place] Clarity (Unsp spec) Clear Normal [facility] Comment on above: Order Comment: Speci men Type: BLOOD SPECIMEN Ordering Facility: [facility] Address: [address] [place] [address] Performed By: #### 2 132-9, 2283-8 #### [facility] CLIA [id number] [address] [place] [address] [place] Color (U) Yellow Normal yellow [facility] Comment on above: Order Comment: Speci men Type: BLOOD SPECIMEN Ordering Facility: [facility] Address: [address] [place] [address] Performed By: #### 2 132-9, 2283-8 #### [facility] CLIA [id number] [address] [place] [address] [place] Epithelial cells LM.HPF (Urine sed) [#/Area] Few Normal [facility] Comment on above: Order Comment: Speci men Type: BLOOD SPECIMEN Ordering Facility: [facility] Address: [address] [place] [address] Result Comment: Few Performed By: #### 2 132-9, 8 #### [facility] CLIA [id number] [address] [place] [address] [place] Glucose Test strip (U) [Mass/Vol] Negative Normal Trace, Negative [facility] Comment on above: Order Comment: Speci men Type: BLOOD SPECIMEN Ordering Facility: [facility] Address: [address] [place] [address] Performed By: #### 2 132-9, 8 #### [facility] CLIA [id number] [address] [place] [address] [place] Hemoglobin Ql (U) Trace Normal Negative, Trace [facility] Comment on above: Order Comment: Speci men Type: BLOOD SPECIMEN Ordering Facility: [facility] Address: [address] [place] [address] Performed By: #### 2 132-9, 8 #### [facility] CLIA [id number] [address] [place] [address] [place] Ketones Ql (U) Negative Normal Negative, Trace [facility] Comment on above: Order Comment: Speci men Type: BLOOD SPECIMEN Ordering Facility: [facility] Address: [address] [place] [address] Performed By: #### 2 132-9, 8 #### [facility] CLIA [id number] [address] [place], [place] [address] [place] Leukocyte esterase Test strip Ql (U) Negative Normal Negative, 25 Vain/uL [facility] Comment on above: Order Comment: Speci men Type: BLOOD SPECIMEN Ordering Facility: [facility] Address: [address] [place], [place] [address] Performed By: #### 2 132-9, 2283-8 #### [facility] CLIA [id number] [address] [place] [address] [place] Nitrite Ql (U) Negative Normal Negative [facility] Comment on above: Order Comment: Speci men Type: BLOOD SPECIMEN Ordering Facility: [facility] Address: [address] [place] [address] Performed By: #### 2 132-9, 2283-8 #### [facility] CLIA [id number] [address] [place] [address] [place] pH (U) 6.0 [pH] Normal 5.0-8.0 [facility] Comment on above: Order Comment: Speci men Type: BLOOD SPECIMEN Ordering Facility: [facility] Address: [address] [place] [address] Performed By: #### 2 132-9, 8 #### [facility] CLIA [id number] [address] [place] [address] [place] Protein (U) [Mass/Vol] 1+ Abnormal Trace , Negative [facility] Comment on above: Order Comment: Speci men Type: BLOOD SPECIMEN Ordering Facility: [facility] Address: [address] [place] [address] Performed By: #### 2 132-9, 8 #### [facility] CLIA [id number] [address] [place] [address] [place] RBC LM.HPF (Urine sed) [#/Area] 3-5 /HPF Abnormal 0-3 /HPF [facility] Comment on above: Order Comment: Speci men Type: BLOOD SPECIMEN Ordering Facility: [facility] Address: [address] [place] [address] Performed By: #### 2 132-9, 8 #### [facility] CLIA [id number] [address] [place] [address] [place] Specific gravity (U) [Rel density] 1.021 Normal 1.005-1.030 [facility] Comment on above: Order Comment: Speci men Type: BLOOD SPECIMEN Ordering Facility: [facility] Address: [address] [place] [address] Performed By: #### 2 132-9, 2284-8 #### [facility] CLIA [id number] [address] [place] [address] [place] Urobilinogen Ql (U) Normal Normal [facility] Comment on above: Order Comment: Speci men Type: BLOOD SPECIMEN Ordering Facility: [facility] Address: [address] [place] [address] Performed By: #### 2 132-9, 2284-8 #### [facility] CLIA [id number] [address] [place] [address] [place] WBC LM.HPF (Urine sed) [#/Area] 0-5 /HPF Normal 0-5 /HPF [facility] Comment on above: Order Comment: Speci men Type: BLOOD SPECIMEN Ordering Facility: [facility] Address: [address] [place] [address] Performed By: #### 2 132-9, 2284-8 #### [facility] CLIA [id number] [address] [place] [address] [place] XR CHEST 1V [...] of bilateral shoulders IMPRESSION: Bilateral basilar atelectasis Meter Reader: PHU Transcribe Date/Time: Aug 13 2024 4:03P Dictated by : GILLIAN ELLIOTT MD This examination was interpreted and the report reviewed and electronically signed by: GILLIAN ELLIOTT MD on Aug 13 2024 4:04PM EST [id number] Normal [facility] CNOVon 07-12-2024 CNOV Office Visit ([facility] ) YUSUF MEDINA ([id number]) 1935 F ALBERTO Date Time Provider Department 07/12/24 9:40 AM MIGDALIA CRAMER [facility] During your visit today, we recorded the [...] [D50.9] Order(s):BASIC METABOLIC PANEL [SQBMP] Order #: [id number] FUTURE HEMOGLOBIN A1C [VUWCU9E] Order #: [id number] FUTURE ALBUMIN/CREATININE RATIO, URINE [SQUACR] Order #: [id number] FUTURE COMPLETE BLOOD COUNT [SQCBC] Order #: [id number] FUTURE THYROID STIMULATING HORMONE [SQTSH] Order #: [id number] FUTURE Prescriptions as of 07/12/2024 - pioglitazone [...] mouth once daily. - blood sugar diagnostic (ONETOUCH ULTRA TEST) test strip Test blood sugar once daily - diclofenac (VOLTARE (more content not included)... Normal [facility] Basic metabolic 2000 panelon 07-11-2024 Anion gap [Moles/Vol] 14 mmol/L Normal 8-15 [facility] Comment on above: Order Comment: Speci men Type: BLOOD SPECIMENOrdering Facility: [facility] Address: [address] [place] [address] [place] [id number] Performed By: #### 2 4321-2 ####[facility] LABCLIA [id number] [place] [id number] [place] Calcium [Mass/Vol] 9.9 mg/dL Normal 8.5-10.2 [facility] Comment on above: Order Comment: Speci men Type: BLOOD SPECIMENOrdering Facility: [facility] Address: [address] [place] [address] Performed By: #### 2 4321-2 ####[facility] LABCLIA [id number] [place] [address] [place] Chloride [Moles/Vol] 101 mmol/L Normal 98-107 [facility] Comment on above: Order Comment: Speci men Type: BLOOD SPECIMENOrdering Facility: [facility] Address: [address] [place] [address] Performed By: #### 2 4321-2 ####[facility] LABCLIA [id number] [place] [address] [place] CO2 [Moles/Vol] 20 mmol/L Low 22-30 [facility] Comment on above: Order Comment: Speci men Type: BLOOD SPECIMENOrdering Facility: [facility] Address: [address] [place] [address] Performed By: #### 2 4321-2 ####[facility] LABCLIA [id number] [place] [address] [place] Creatinine [Mass/Vol] 0.93 mg/dL Normal 0.58-0.96 [facility] Comment on above: Order Comment: Speci men Type: BLOOD SPECIMENOrdering Facility: [facility] Address: [address] [place] [address] Performed By: #### 2 4321-2 ####[facility] LABCLIA [id number] [address] [place] Creatinine and Glomerular filtration rate.predicted panel (S/P/Bld) 59 mL/min/1.73m??? Low >=60 [facility] Comment on above: Order Comment: Fan meade Type: BLOOD SPECIMENOrdering Facility: [facility] Address: [address] [place] [address] Result Comment: Hilda mated Glomerular Filtration Rate [...] 2 4321-2 ####[facility] LABCLIA [id number] [place] [address] [place] Glucose [Mass/Vol] 244 mg/dL High 74-99 [facility] Comment on above: Order Comment: Fan meade Type: BLOOD SPECIMENOrdering Facility: [facility] Address: [address] [place] [address] Result Comment: The [place] Diabetes Association (ADA) provides guidance for cutoff [...] Standards of Medical Care in Diabetes 2016, [place] [employer] Association. Diabetes Care. 2016.39(Suppl 1). Performed By: #### 2 4321-2 ####[facility] LABCLIA [id number] [place] [address] [place] Potassium [Moles/Vol] 5.2 mmol/L High 3.7-5.1 [facility] Comment on above: Order Comment: Fan meade Type: BLOOD SPECIMENOrdering Facility: [facility] Address: [address] [place] [address] Performed By: #### 2 4321-2 ####[facility] LABCLIA [id number] [place] [address] [place] Sodium [Moles/Vol] 135 mmol/L Low 136-144 [facility] Comment on above: Order Comment: Speci men Type: BLOOD SPECIMENOrdering Facility: [facility] Address: [address] [place] [address] Performed By: #### 2 4321-2 ####[facility] LABCLIA [id number] [place] [address] [place] Urea nitrogen [Mass/Vol] 30 mg/dL High 7-21 [facility] Comment on above: Order Comment: Speci men Type: BLOOD SPECIMENOrdering Facility: [facility] Address: [address] [place] [address] Performed By: #### 2 4321-2 ####[facility] LABCLIA [id number] [place] [address] [place] HbA1c (Bld)on 07-11-2024 Average glucose Estimated from glycated hemoglobin (Bld) [Mass/Vol] 189 mg/dL Normal [facility] Comment on above: Order Comment: Speci men Type: BLOOD SPECIMENOrdering Facility: [facility] Address: [address] [place] [address] Result Comment: eAG: (Estimated average glucose) is a calculated value from HgbA1c and is pharmaceutical specialty representative of the average blood glucose level in the last 2-3 month period. Performed By: #### 5 5454-3 ####[facility] LAB[facility]IA [id number] [facility] [id number] [place] HbA1c (Bld) [Mass fraction] 8.2 % High 4.3-5.6 [facility] Comment on above: Order Comment: Speci men Type: BLOOD SPECIMENOrdering Facility: [facility] Address: [address] [place] [address] Result Comment: [place] Diabetes Association guidelines indicate that patients with HgbA1c in the range 5.7-6.4% are at increased risk for development of diabetes, and intervention by lifestyle modification may be beneficial. HgbA1c greater or equal to 6.5% is considered diagnostic of diabetes. Performed By: #### 5 5454-3 ####[facility] LABCLIA [id number] [address] [place] LIPID PANEL, NONFASTINGon Cholesterol [Mass/Vol] 151 mg/dL Normal <200 [facility] Comment on above: Order Comment: Speci men Type: BLOOD SPECIMEN Ordering [facility]: [facility] Address: [address] [place] [address] Result Comment: <200 mg/dL, Desirable 200-239 mg/dL, Borderline high >239 mg/dL, High Performed By: #### 1 3964-2 #### [facility] CLIA [id number] [address] [place] [address] [place] HDL CHOLESTEROL, NF 59 mg/dL Normal >39 [facility] Comment on above: Order Comment: Fan meade Type: BLOOD SPECIMEN Order[facility]: [facility] Address: [address] [place] [address] Result Comment: 40-5 9 mg/dL, Acceptable >59 mg/dL, High: Negative risk factor for coronary heart disease <40 mg/dL, Low: Positive risk factor for coronary heart disease Performed By: #### 1 3964-2 #### [facility] CLIA [id number] [address] [place] [address] [place] LDL CHOLESTEROL, NF 71 mg/dL Normal <100 [facility] Comment on above: Order Comment: Katei [facility] Type: BLOOD SPECIMEN Ordering Facility: [facility] Address: [address] [place] [address] Result Comment: <100 mg/dL, Optimal 100-129 mg/dL, Near optimal/above optimal 130-159 mg/dL, Borderline high 160-189 mg/dL, High >189 mg/dL, Very high Secondary prevention optimal LDL Cholesterol levels are recommended to be < 70 mg/dL Performed By: #### 1 3964-2 #### [facility] CLIA [id number] [address] [place] [address] [place] LDL/HDL RATIO, NF 1.20 mg/dL Normal <2.54 [facility] Comment on above: Order Comment: Fan meade Type: BLOOD SPECIMEN Order[facility] Facility: [facility] Address: [address] [place] [address] Result Comment: Refe rence: 1. National Cholesterol Education Program ATP III Guideline At-A-Glance Quick Desk Reference: National Heart, Lung, and Blood [place]. National Institutes of Health. 2001: NIH Publication No. 01-3305. 2. An International Atherosclerosis Society position paper: global recommendations for the management of dyslipidemia: executive summary, Atherosclerosis. 2014: 232(2):410-413. Performed By: #### 1 3964-2 #### [facility] CLIA [id number] [address] [place] [address] [place] NON HDL CHOL, NF 92 mg/dL Normal <130 [facility] Comment on above: Order Comment: Fan meade Type: BLOOD SPECIMEN Order[facility] Address: [address] [place] [address] Result Comment: <130 mg/dL, Optimal 130-159 mg/dL, Near optimal/above optimal 160-189 mg/dL, Borderline high 190-219 mg/dL, High >219 mg/dL, Very high Secondary prevention optimal non HDL Cholesterol levels are recommended to be <100 mg/dL Performed By: #### 1 3964-2 #### [facility] CLIA [id number] [address] [place] [address] [place] T CHOL/HDL RATIO NF 2.56 mg/dL Normal <5.10 [facility] Comment on above: Order Comment: Fan men Type: BLOOD SPECIMEN [facility] Address: [address] [place] [address] Performed By: #### 1 3964-2 #### [facility] CLIA [id number] [address] [place] [address] [place] TRIGLYCERIDES, NF 107 mg/dL Normal <150 [facility] Comment on above: Order Comment: Specleroy meade Type: BLOOD SPECIMEN [facility] Address: [address] [place] [address] Result Comment: <150 mg/dL, Normal 150-199 mg/dL, Borderline high 200-499 mg/dL, High >499 mg/dL, Very high Performed By: #### 1 3964-2 #### [facility] CLIA [id number] [address] [place] [address] [place] VLDL CHOLESTEROL, NF 21 mg/dL Normal <30 [facility] Comment on above: Order Comment: Fan meade Type: BLOOD SPECIMEN [facility] Address: [address] [place] [address] Performed By: #### 1 3964-2 #### [facility] CLIA [id number] [address] [place] [address] [place] Home Health Progress Noteon 12-09-2021 Home Health Progress Note Follow up call placed to patient regarding HHC. Spoke with Yusuf regarding services. Patient states no services needed and hung up on caller. [facility] BASICMETAon 12-07-2021 GFR AA 45 Normal [facility] Comment on above: Result Comment: Afri can [place] GFR Calc Medical judgement is necessary to [...] for drug dosing. Performed By: #### C D:[id number], [id number], 640820, 774550, 438222, 509998 #### [facility] [address] [place] [address] Shovel Mechanic: Robert Ybarra MD Glomerular Filtration Rate 37 mL/min/1.73m? Normal [facility] Comment on above: Result Comment: Non GFR [...] for drug dosing. Performed By: #### C D:[id number], 2377604, 080747, 101449, 088899, 368441 #### [facility] [address] [place] [address] Shovel Mechanic: Robert Ybarra MD Osmolality [Osmolality] 287 mosm/kg Normal 275-295 [facility] Comment on above: Performed By: #### C D:[id number], 3786953, 297735, 752428, 588364, 258423 #### [facility] [address] [place] [address] Shovel Mechanic: Robert Ybarra MD Urea nitrogen/Creatinine [Mass ratio] 19.1 mg/mg Normal [facility] Comment on above: Performed By: #### C D:[id number], 4376981, 567661, 165713, 328823, 359220 #### [facility] [address] [place] [address] Shovel Mechanic: Robert Ybarra MD Calcium [Mass/Vol] 9.7 mg/dL Normal 8.5-10.5 [facility] Comment on above: Performed By: #### C D:[id number], 6833706, 673934, 091523, 639389, 682874 #### [facility] [address] [place] [address] Shovel Mechanic: Robert Ybarra MD Chloride [Moles/Vol] 107 mmol/L Normal 100-109 [facility] Comment on above: Performed By: #### C D:[id number], 9340867, 309329, 608898, 412660, 734662 #### [facility] [address] [place] [address] Shovel Mechanic: Robert Ybarra MD CO2 [Moles/Vol] 25.9 mmol/L Normal 21.0-32.0 [facility] Comment on above: Performed By: #### C D:[id number], 4272998, 922282, 436755, 675478, 531814 #### [facility] [address] [place] [address] Shovel Mechanic: Robert Ybarra MD Creatinine [Mass/Vol] 1.4 mg/dL High 0.6-1.0 [facility] Comment on above: Performed By: #### C D:[id number], 0110134, 605798, 466973, 396453, 331296 #### [facility] [address] [place] [address] Shovel Mechanic: Robert Ybarra MD Glucose [Mass/Vol] 177 mg/dL [...] not be affected. Performed By: #### C D:[id number], 2795225, 870297, 540410, 081439, 467493 #### [facility] [address] [place] [address] Shovel Mechanic: Robert Ybarra MD Potassium [Moles/Vol] 4.7 mmol/L Normal 3.5-5.1 [facility] Comment on above: Performed By: #### C D:[id number], 0895345, 195168, 393211, 034433, 953066 #### [facility] [address] [place] [address] Shovel Mechanic: Robert Ybarra MD Sodium [Moles/Vol] 139 mmol/L Normal 135-145 [facility] Comment on above: Performed By: #### C D:[id number], 1688616, 594885, 728078, 073733, 629756 #### [facility] [address] [place] [address] Shovel Mechanic: Robert Ybarra MD Urea nitrogen [Mass/Vol] 26 mg/dL High 10-20 [facility] Comment on above: Performed By: #### C D:[id number], 3451037, 057239, 615373, 861065, 093340 #### [facility] [address] [place] [address] [id number] Shovel Mechanic: Robert Ybarra MD CPKon 12-07-2021 CPK 1185 unit/L Critically abnormal 26-192 [facility] Comment on above: Result Comment: Crit ical Result(s) called at: 13:24:37 on 12/07/2021 by: MIRNA rechecked, RBR to: Dr. Beckford Performed By: #### C D:[id number], 7823787, 485127, 933185, 565849, 942339 #### [facility] [address] [place], [place] [id number] Shovel Mechanic: Robert Ybarra MD Utilization Review Noteon Utilization Review Note Inpatient recomm ended. Inpatient ordered. Patient with #1 acute hypothermia. YUSUF MEDINA 12/03/21 [id number] CCE 200 INPT UPDATED CERNER TO [facility] Verified admit thru the portal [id number] PATIENT ALREADY DISCHARGED AT THE TIME OF THIS REVIEW. Faxed Normal [facility] Discharge Educationon 2021 Discharge Education Patient Education Material Normal [facility] Inpatient Patient Summaryon 12-05-2021 Inpatient Patient Summary [facility] Discharge Instructions [address] [place] [address] \.br\(Patient Copy)\.br\ \.br\ \.br\Name: YUSUF MEDINA : 1935 \.br\Diagnosis: Abrasion of right elbow; Benign essential hypertension; Chronic kidney disease (CKD), stage III (moderate); Contusion of right thigh; Diabetes mellitus type II, controlled; acute Hypothermia \.br\ \.br\Allergies: No Known Allergies\.br\ \.br\Registration Date: 12/03/21\.br\\.br\\.br \ \.br\ Current Date Time: 12/05/2021 07:42:18 \.br\ \.br\Address: [address] [place] [address] \.br\ \.br\ \.br\Primary Care Provider: \.br\Name: RADHA CRAMER\.br\ \.br\ \.br\Thank you for choosing [facility] for your care. You are very important to us. Our goal is to demonstrate our high quality medical care and provide you with a very good patient experience.\.br\ You may receive a survey about our service. Please take the time to complete the survey and return it so we can continue to enhance our service.\.br\ Thank you again for allowing [facility] to care for your medical needs. [...] in more information on smoking cessation, contact [facility]ess[facility] [phone]\.br\ \.br\ DIET Eat a variety of nutritious [...] Connection / Physician Referral and Health Information [phone].\.br\Hear t and [facility] [place] [id number] ( )\.br\S easons of a Woman?s Life [phone] \.br\ \.br\ Call immediately if you or [...] discomfort: M (more content not included)... Normal [facility] AUTO DIFFon 12-04-2021 Baso Count 0.05 x1000 Normal 0.00-0.20 [facility] Comment on above: Performed By: #### 1 , 306999, 845851, 8720153 ####[facility] [address] [place] [address] Medical Director: Robert Ybarra MD Basos % 0.5 % Normal [facility] Comment on above: Performed By: #### 1 , 008289, 831480, 7012498 ####[facility] [address] [place] [address] Medical Director: Robert Ybarra MD Eos Count 0.01 x1000 Normal 0.00-0.50 [facility] Comment on above: Performed By: #### 1 , 989205, 099887, 5160838 ####[facility] [address] [place] [address] Medical Director: Robert Ybarra MD Eosinophils/100 WBC (Bld) 0.1 % Normal [facility] Comment on above: Performed By: #### 1 , 999633, 626167, 7451720 ####[facility] [address] [place] [address] Medical Director: Robert Ybarra MD Lymph Count 1.19 x1000 Low 1.20-4.80 [facility] Comment on above: Performed By: #### 1 , 168517, 111637, 0911935 ####[facility] [address] [place] [address] Medical Director: Robert Ybarra MD Lymphocytes/100 WBC (Bld) 11.8 % Normal [facility] Comment on above: Performed By: #### 1 , 696216, 273566, 2637514 ####[facility] [address] [place] [address] Medical Director: Robert Ybarra MD Fallon Count 0.57 x1000 Normal 0.10-1.00 [facility] Comment on above: Performed By: #### 1 13426, 024077, 284952, 5170006 ####[facility] [address] [place] [address] Medical Director: Robert Ybarra MD Monocytes/100 WBC (Bld) 5.6 % Normal [facility] Comment on above: Performed By: #### 1 , 448623, 120104, 3390136 ####[facility] [address] [place] [address] Medical Director: Robert Ybarra MD Neutrophil Count (ANC) 8.28 x1000 Normal 1.40-8.80 [facility] Comment on above: Performed By: #### 1 , 262620, 385987, 3339743 ####[facility] [address] [place] [address] Medical Director: Robert Ybarra MD Neutrophils/100 WBC (Bld) 82.0 % Normal [facility] Comment on above: Performed By: #### 1 , 656008, 251961, 6055521 ####[facility] [address] [place] [address] Medical Director: Robert Ybarra MD B12 FOLATEon 12-04-2021 Cobalamin (Vitamin B12) [Mass/Vol] 455 pg/mL Normal 193-986 [facility] Comment on above: Performed By: #### 1 , 288171, 435348, 0492501 ####[facility] [address] [place] [address] Medical Director: Robert Ybarra MD FOLATE 14.3 ng/mL Normal 3.1-17.5 [facility] Comment on above: Performed By: #### 1 , 972221, 510241, 7472512 ####[facility] [address] [place], [place] [address]) [phone] Director: Robert Ybarra MD BLD GASon 12-04-2021 MAGGIE TEST [facility] Comment on above: Performed By: #### C D:[id number], 0227418, 443322, 531472, 786354, 381580 #### [facility] [address] [place] [address] Shovel Mechanic: Robert Ybarra MD Base Excess -5.0 mmol/L [facility] Comment on above: Performed By: #### C D:[id number], 0049603, 198172, 621954, 674815, 788185 #### [facility] [address] [place] [address] Shovel Mechanic: Robert Ybarra MD ePAP 0 cmH20 [facility] Comment on above: Performed By: #### C D:[id number], 5197266, 539357, 687431, 357198, 939313 #### [facility] [address] [place] [address] Shovel Mechanic: Robert Ybarra MD FIO2 36 % [facility] Comment on above: Performed By: #### C D:486673722, 1453117, 225831, 434326, 516021, 879866 #### [facility] [address] [place] [address] Shovel Mechanic: Robert Ybarra MD HCO3 (Bld) [Moles/Vol] 19.8 mmol/L Low 22.0-26.0 [facility] Comment on above: Performed By: #### C D:986656813, 8988951, 369897, 494120, 648385, 633288 #### [facility] Services [address] [place] [address] Shovel Mechanic: Robert Ybarra MD iPAP 0 cmH20 [facility] Comment on above: Performed By: #### C D:842936152, 4238829, 904124, 747494, 286906, 082586 #### [facility] [address] [place] [address] Shovel Mechanic: Robert Ybarra MD O2 L/M 4.0 Normal [facility] Comment on above: Performed By: #### C D:[id number], 8092177, 704074, 679811, 418137, 249359 #### [facility] [address] [place] [address] Shovel Mechanic: Robert Ybarra MD Oxygen (Bld) [Partial pressure] 82.0 mm[Hg] Normal 80.0-100.0 [facility] Comment on above: Performed By: #### C D:401253333, 4064284, 274974, 556681, 422422, 427014 #### [facility] [address] [place] [address] Shovel Mechanic: Robert Ybarra MD Oxygen saturation in Blood 94.1 % Normal [facility] Comment on above: Performed By: #### C D:449799230, 4784507, 429749, 286502, 522491, 177303 #### [facility] [address] [place] [address] Shovel Mechanic: Robert Ybarra MD PCO2 35.6 mmHg Normal 35.0-45.0 [facility] Comment on above: Performed By: #### C D:[id number], 9974571, 784453, 049386, 352428, 597295 #### [facility] [address] [place] [address] Shovel Mechanic: Robert Ybarra MD PEEP 0.0 cmH20 Normal [facility] Comment on above: Performed By: #### C D:293852562, 6867213, 852220, 167696, 047278, 802762 #### [facility] [address] [place] [address] Shovel Mechanic: Robert Ybarra MD pH (Bld) 7.363 [pH] Normal 7.350-7.450 [facility] Comment on above: Performed By: #### C D:633622237, 0219190, 277492, 528001, 131087, 941033 #### [facility] [address] [place] [address] Shovel Mechanic: Robert Ybarra MD PO2/FiO2 Ratio 228 Low 300-500 [facility] Comment on above: Performed By: #### C D:485711048, 5770710, 953544, 486619, 478768, 656729 #### [facility] [address] [place] [address] Shovel Mechanic: Robert Ybarra MD Pressure Support. 0 cmH20 [facility] Comment on above: Performed By: #### C D:607880017, 6189065, 076245, 680147, 309915, 737999 #### [facility] [address] [place] [address] Shovel Mechanic: Robert Ybarra MD RATE 0 bpm [facility] Comment on above: Performed By: #### C D:918764935, 0022492, 741936, 494698, 757128, 793428 #### [facility] [address] [place] [address] Shovel Mechanic: Robert Ybarra MD TEMP 37.0 degC Normal <=37.0 [facility] Comment on above: Performed By: #### C D:091813689, 9895140, 184609, 232671, 809221, 662269 #### [facility] [address] [place] [address] Shovel Mechanic: Robert Ybarra MD Type of Specimen RB Art Normal [facility] Comment on above: Result Comment: RR A RT = Right Artery RB ART = Right Brachial Artery LR ART = Left Radial Artery LB ART = Left Brachial Artery RF ART = Right Femoral Artery LF ART = Left Femoral Artery Performed By: #### C D:528367926, 3039006, 285591, 935185, 107596, 004157 #### [facility] [address] [place] [address] Shovel Mechanic: Robert Ybarra MD Ventilation Nasalcan Normal [facility] Comment on above: Performed By: #### C D:228969084, 2101737, 236194, 964948, 009196, 813826 #### [facility] [address] [place] [address] Shovel Mechanic: Robert Ybarra MD VT 00 mL Normal [facility] Comment on above: Performed By: #### C D:513446241, 3828338, 263809, 584560, 754418, 617049 #### [facility] [address] [place] [address] Shovel Mechanic: Robert Ybarra MD CBCNDon 12-04-2021 Erythrocyte distribution width (RBC) [Ratio] 14.2 % Normal 11.5-14.5 [facility] Comment on above: Performed By: #### C D:068947641, 1114136, 356574, 516241, 022497, 754957 #### [facility] [address] [place] [address] Shovel Mechanic: Robert Ybarra MD Hematocrit (Bld) [Volume fraction] 30.1 % Low 36.0-46.0 [facility] Comment on above: Performed By: #### C D:999891514, 5413632, 011086, 561221, 538584, 715574 #### [facility] [address] [place] [address] Shovel Mechanic: Robert Ybarra MD Hemoglobin (Bld) [Mass/Vol] 10.1 g/dL Low 12.0-16.0 [facility] Comment on above: Performed By: #### C D:231882906, 4156722, 904383, 056886, 544360, 763249 #### [facility] [address] [place] [address] Shovel Mechanic: Robert Ybarar MD Instr WBC ND 13.8 Normal [facility] Comment on above: Performed By: #### C D:623621815, 1362574, 741994, 756068, 309548, 432680 #### [facility] [address] [place] [address] Shovel Mechanic: Robert Ybarra MD MCH (RBC) [Entitic mass] 29.8 pg Normal 27.0-34.0 [facility] Comment on above: Performed By: #### C D:106655493, 9739072, 672089, 875453, 402517, 178538 #### [facility] [address] [place] [address] Shovel Mechanic: Robert Ybarra MD MCHC (RBC) [Mass/Vol] 33.6 g/dL Normal 32.0-37.0 [facility] Comment on above: Performed By: #### C D:663231502, 0405393, 445830, 007980, 803401, 715547 #### [facility] [address] [place] [address] Shovel Mechanic: Robert Ybarra MD MCV (RBC) [Entitic vol] 88.9 fL Normal 80.0-100.0 [facility] Comment on above: Performed By: #### C D:031909875, 8631363, 328390, 568653, 781643, 284898 #### [facility] [address] [place] [address] Shovel Mechanic: Robert Ybarra MD Platelet 294 x1000 Normal 150-450 [facility] Comment on above: Performed By: #### C D:601162430, 5150090, 276414, 439757, 026537, 883693 #### [facility] [address] [place] [address] Shovel Mechanic: Robert Ybarra MD Platelet mean volume (Bld) [Entitic vol] 6.9 fL Low 7.4-10.4 [facility] Comment on above: Performed By: #### C D:392116520, 9098262, 670177, 601704, 486310, 389154 #### [facility] [address] [place] [address] Shovel Mechanic: Robert Ybarra MD RBC 3.38 x10 Low 4.20-5.40 [facility] Comment on above: Result Comment: Note : RBC morphology is normal unless otherwise stated. Evaluation performed only if differential is requested. Performed By: #### C D:027483916, 4453609, 939317, 038075, 079104, 414191 #### [facility] [address] [place] [address] Shovel Mechanic: Robert Ybarra MD WBC 13.8 x10 High 4.5-11.0 [facility] Comment on above: Performed By: #### C D:995196876, 9956271, 815821, 289046, 193161, 757175 #### [facility] [address] [place] [address] Shovel Mechanic: Robert Ybarra MD COMPMETAon 12-04-2021 Albumin [Mass/Vol] 2.9 g/dL Low 3.4-5.0 [facility] Comment on above: Performed By: #### C D:367491308, 9137131, 006543, 393971, 280121, 079273 #### [facility] [address] [place] [address] Shovel Mechanic: Robert Ybarra MD Albumin/Globulin [Mass ratio] 1.2 {ratio} Normal [facility] Comment on above: Performed By: #### C D:587156241, 2339401, 438609, 798157, 207808, 708191 #### [facility] [address] [place] [address] Shovel Mechanic: Robert Ybarra MD Alk Phos 58 unit/L Normal 45-117 [facility] Comment on above: Performed By: #### C D:[id number], 5411785, 512459, 672132, 017439, 535701 #### [facility] [address] [place] [address] Shovel Mechanic: Robert Ybarra MD Bilirubin [Mass/Vol] 0.25 mg/dL Normal 0.20-1.00 [facility] Comment on above: Result Comment: Use of this assay is not recommended for patients undergoing treatment with eltrombopag due to the potential for falsely elevated results. Performed By: #### C D:132478409, 7334689, 178385, 930609, 469317, 377502 #### [facility] [address] [place] [address] Shovel Mechanic: Robert Ybarra MD Calcium [Mass/Vol] 8.5 mg/dL Normal 8.5-10.5 [facility] Comment on above: Performed By: #### C D:101892209, 0845231, 781862, 206897, 354023, 852334 #### [facility] [address] [place] [address] Shovel Mechanic: Robert Ybarra MD Chloride [Moles/Vol] 106 mmol/L Normal 100-109 [facility] Comment on above: Performed By: #### C D:018493202, 2240451, 117445, 714819, 825749, 196523 #### [facility] [address] [place] [address] Shovel Mechanic: Robert Ybarra MD CO2 [Moles/Vol] 22.7 mmol/L Normal 21.0-32.0 [facility] Comment on above: Performed By: #### C D:333798833, 5192205, 672037, 367964, 809832, 922074 #### [facility] [address] [place] [address] Shovel Mechanic: Robert Ybarra MD Creatinine [Mass/Vol] 1.3 mg/dL High 0.6-1.0 [facility] Comment on above: Performed By: #### C D:120297728, 0864081, 648022, 235255, 462482, 561136 #### [facility] [address] [place] [address] Shovel Mechanic: Robert Ybarra MD GFR AA 46 [facility] Comment on above: Result Comment: Afri can [place]ral[place] GFR Calc Medical judgement is necessary to [...] for drug dosing. Performed By: #### C D:178283505, 4093289, 740098, 738261, 588532, 540916 #### [facility] [address] [place] [address] Shovel Mechanic: Robert Ybarra MD Globulin (S) [Mass/Vol] 2.4 g/dL Normal S [facility] Comment on above: Performed By: #### C D:302840631, 7175254, 398510, 001260, 893331, 728945 #### [facility] [address] [place] [address] Shovel Mechanic: Robert Ybarra MD Glomerular Filtration Rate 38 mL/min/1.73m? Normal [facility] Comment on above: Result Comment: Non GFR [...] for drug dosing. Performed By: #### C D:830735236, 6673137, 441693, 850675, 533281, 774808 #### [facility] [address] [place] [address] Shovel Mechanic: Robert Yabrra MD Glucose [Mass/Vol] 186 mg/dL High 72-100 [...] not be affected. Performed By: #### C D:[id number], 9849965, 163570, 619938, 974260, 972431 #### [facility] [address] [place] [address] Shovel Mechanic: Robert Ybarra MD GOT 123 unit/L High 15-37 [facility] Comment on above: Result Comment: revi ewed Venipuncture should occur prior to sulfasalazine and/or sulfapyridine administration due to the potential for falsely depressed results. Baseline assay values before administration of sulfasalazine and sulfapyridine therapy would not be affected. Performed By: #### C D:[id number], 1533368, 989524, 659055, 260434, 209348 #### [facility] [address] [place] [address] Shovel Mechanic: Robert Ybarra MD GPT 92 unit/L High 13-56 [facility] Comment on above: Result Comment: revi ewed Venipuncture should occur prior to sulfasalazine and/or sulfapyridine administration due to the potential for falsely depressed results. Baseline assay values before administration of sulfasalazine and sulfapyridine therapy would not be affected. Performed By: #### C D:[id number], 9135265, 667365, 453130, 446448, 786636 #### [facility] [address] [place] [address] Shovel Mechanic: Robert Ybarra MD Osmolality [Osmolality] 289 mosm/kg Normal 275-295 [facility] Comment on above: Performed By: #### C D:924399052, 4316353, 713087, 186669, 304973, 590668 #### [facility] [address] [place] [address] Shovel Mechanic: Robert Ybarra MD Potassium [Moles/Vol] 4.3 mmol/L Normal 3.5-5.1 [facility] Comment on above: Performed By: #### C D:143922024, 4473081, 389863, 339458, 613785, 129949 #### [facility] [address] [place] [address] Shovel Mechanic: Robert Ybarra MD Protein [Mass/Vol] 5.3 g/dL Low 6.0-8.5 [facility] Comment on above: Performed By: #### C D:242602525, 1407668, 833575, 421649, 976232, 386374 #### [facility] [address] [place] [address] Shovel Mechanic: Robert Ybarra MD Sodium [Moles/Vol] 137 mmol/L Normal 135-145 [facility] Comment on above: Performed By: #### C D:817453418, 1862050, 552322, 894380, 524807, 948123 #### [facility] [address] [place] [address] Shovel Mechanic: Robert Ybarra MD Urea nitrogen [Mass/Vol] 42 mg/dL High 10-20 [facility] Comment on above: Performed By: #### C D:275594475, 5744177, 440917, 108950, 356900, 484214 #### [facility] [address] [place] [address] Shovel Mechanic: Robert Ybarra MD Urea nitrogen/Creatinine [Mass ratio] 31.8 mg/mg Normal [facility] Comment on above: Performed By: #### C D:[id number], 5465243, 094703, 776652, 872425, 492780 #### [facility] [address] [place] [address] Shovel Mechanic: Robert Ybarra MD CPKoscottie 12-04-2021 CPK 3684 unit/L Critically abnormal [address] [place] [address] Comment on above: Result Comment: Crit ical Result(s) called at: 17:08:41 on 12/04/2021 by: Kp dennison RBR to: TC Performed By: #### C D:[id number], 7561220, 481714, 082679, 460055, 106110 #### [facility] [address] [place] [address] Shovel Mechanic: Robert Ybarra MD CPK 2217 unit/L Critically abnormal [address] [place] [address] Comment on above: Result Comment: Crit ical Result(s) called at: 04:10:50 on 12/04/2021 by: Byron dennison, RBR to: SF&XA&&XA&reviewed Performed By: #### C D:[id number], 1466150, 534803, 568262, 244860, 383062 #### [facility] [address] [place] [address] Shovel Mechanic: Robert Ybarra MD CPK 926 unit/L High [address] [place] [address] Comment on above: Performed By: #### 1 69940 ####[facility] [address] [place] [address] Medical Director: Robert Ybarra MD Consult Reporton 12-04-2021 Consult Report Patient: YUSUF MEDINA Age: 85 years Sex: Female : 1935 Associated Diagnoses: None Author: YENNY HODGE, [facility] Consult Note IMPRESSION: Mechanical fall. Rhabdomyolysis Type II RI elevated troponin without ACS Afib with slow [...] MG TAB 650 mg 2 tabs, ORAL, [id number] ACETAMINOPHEN 325 MG TAB 650 mg 2 tabs, ORAL, [id number] DEXTROSE 50% 50ML SYRINGE/VIAL 12.5 g 25 mL, IV Push, PRN DEXTROSE 50% 50ML SYRINGE/VIAL 25 g 50 mL, IV Push, PRN GLUCAGON 1MG INJ 1 mg, IM, PRN GLUCOSE GEL 15GM/42ML 15 g 1 packets, ORAL, PRN GLUCOSE GEL 15GM/42ML 30 g 2 packets, ORAL, PRN ONDANSETRON=ZOFRAN INJ 4 mg 2 mL, IV Push, [id number] Allergies (1) Active Reaction No Known Allergies [...] 04:00) Resp Rate H 26br/min (DEC 04 14:00) SBP 124 mmHg (DEC 04 14:00) DBP L 45mmHg (DEC 04 14:00) BMI 23.87 (DEC 04 04:45) General: Awake [...] available. BNP No qualifying data available. Normal [facility] Consult Report Patient: YUSUF MEDINA Age: 85 years Sex: Female : 1935 Associated Diagnoses: None Author: JEREMY DENTON MDSH History of Present Illness 85-year-old lady. Admitted 12/03/2021 Fell. Also confused. History was limited also because of language barrier. Apparently lives alone. Apparently had gone to the [employer] to [employer]. She fell. Unknown why she fell [...] is able to speak little bit of Icelandic. Her son lives in the [facility]. She lives alone. She said she went to [employer] in the chicken coop and there [...] MG TAB 650 mg 2 tabs, ORAL, [id number] ACETAMINOPHEN 325 MG TAB 650 mg 2 tabs, ORAL, [id number] DEXTROSE 50% 50ML SYRINGE/VIAL 12.5 g 25 mL, IV Push, PRN DEXTROSE 50% 50ML SYRINGE/VIAL 25 g 50 mL, IV Push, PRN GLUCAGON 1MG INJ 1 mg, IM, PRN GLUCOSE GEL 15GM/42ML 15 g 1 packets, ORAL, PRN GLUCOSE GEL 15GM/42ML 30 g 2 packets, ORAL, PRN ONDANSETRON=ZOFRAN INJ 4 mg 2 mL, IV Push, [id number] PERFLUTREN 2 ML INJ 2 ML, IV [...] Last Charted Temp Rectal 37.8 degC (DEC 04:) Heart Rate Peripheral 77 bpm (DEC 04 08:00) Resp Rate H 22br/min (DEC 04:) SBP 122 mmHg (DEC 04:) DBP L 55mmHg (DEC 04:) BMI 23.87 (DEC 04 04:45) Neurologic exam: Mental Status: Speech and language were okay. She spoke in broken Icelandic. Good eye contact. Followed commands. She knew [...] Glucose Random (more content not included)... Normal [facility] Consult Report Patient: YUSUF MEDINA Age: 85 [...] Tylenol: 650 mg = 2 tabs, ORAL, [id number], PRN: Mild Pain Tylenol: 650 mg = 2 tabs, ORAL, [id number], PRN: Temperature Above 102 Zofran: 4 mg = 2 mL, IV Push, [id number], PRN: Nausea/Vomiting glucagon: 1 mg, IM, PRN, [...] MG TAB 650 mg 2 tabs, ORAL, [id number] ACETAMINOPHEN 325 MG TAB 650 mg 2 tabs, ORAL, [id number] DEXTROSE 50% 50ML SYRINGE/VIAL 12.5 g 25 mL, IV Push, PRN DEXTROSE 50% 50ML SYRINGE/VIAL 25 g 50 mL, IV Push, PRN GLUCAGON 1MG INJ 1 mg, IM, PRN GLUCOSE GEL 15GM/42ML 15 g 1 packets, ORAL, PRN GLUCOSE GEL 15GM/42ML 30 g 2 packets, ORAL, PRN ONDANSETRON=ZOFRAN INJ 4 mg 2 mL, IV Push, [id number] PERFLUTREN 2 ML INJ 2 ML, IV [...] No activ (more content not included)... Normal [facility] ED Discharge Educationon ED Discharge Education Normal So [facility] ED Patient Summaryon 022 ED Patient Summary [facility] Emergency Department Discharge Instructions [address] [place] [address] \.br\(Patient Copy)\.br\ \.br\Name: CAROLDELISAA : 1935 \.br\Allergies: No Known Allergies\.br\Diagnosi s: Diagnoses This Visit\.br\ Abrasion of right elbow (S50.311A)\.br\ acute Hypothermia (T68.XXXA)\.br\ Contusion of right thigh (S70.11XA)\.br\ Fall ([id number])\.br\ Hypothermia due to exposure ([id number])\.br\\ .br\\.br\ \.br\ Visit Date: 12/03/2021 19:54:53 \.br\ Current Date Time: 12/04/2021 01:06:15 \.br\Address: [address] [place] [address] \.br\ \.br\ \.br\Primary Care Provider: \.br\Name: RADHA CRAMER\.br\ \.br\ \.br\Emergency Department Care Providers: \.br\ Primary Physician: IDA ALMODOVAR MD \.br\ \.br\ \.br\\.br\Thank you for choosing [facility] for your emergency care. You are very important to us. Our goal is to demonstrate our high quality medical care, and provide you with a very good patient experience.\.br\\.br\Y ou may receive a survey about our service. Please take the time to complete the survey and return it so we can continue to enhance our service.\.br\\.br\Than k you again for allowing the [facility] Emergency Department to care for your medical needs. If you have questions about your care or follow up information please contact us at [phone].\.br\\.br \ Follow-Up Instructions\.br\ \.b r\CAROL YUSUF has been given these follow-up instructions:\.br\\.br \Patient Education Materials\.br\ \.br\DELISA RUDDA has been given the following patient education materials:\.br\\.br\ \.br\BEFORE YOU LEAVE\.br\\.br\Set up your [facility] oDeskfe account!\.br\ \.br\Healthe[employer] is a secure, online health management tool that connects you to portions of your hospital-based electronic medical record, allowing you to see test results, manage appointments, access discharge care instructions and much more.\.br\ \.br\You can access oDeskfe from a computer, tablet or smartphone. Enrollment/registratio n is required. If you do not have a oDeskfe account, please provide us with an email address before you leave so that we may set up an account for you.\.br\ \.br\New to MOVL!\.br\You may now securely connect some of the health management apps you use (e.g., fitness trackers, dietary trackers, etc.) to your health record in [facility] MOVL. This new feature provides expanded access to your health and wellness data, which will help you and your care team make informed decisions about your health care. \.br\If you are interested in using a health management gordo not currently connected to MOVL, contact a Training Associate at [phone] or [email or web address]. We will determine if the gordo meets the technical requirements to connect to [facility] MOVL and assure the security of your private [...] health or substance abuse issue, please call [facility] at [phone] or the National Suicide Prevention Lifeline at .\.br\ \.br\\.br\ \.br\ \.br\CAROL Almazan VIORICA, have received the follow-up provider(s) list, medication information and patient education materials/instructions and have verbalized understanding.\.br\ \.br\ \.br\Patient Signature \.br\Kalen e \.br\Leif e \.br\ \.br\ \.br\ Provider Signature \.br\Kalen e \.br\Leif e Normal [facility] ED Physician Reporton 2021 ED Physician Report [...] 20:47:00, rate 37, No ST-T changes, normal [place] & QRS intervals, EP Interp, The Rhythm [...] \.br\ Lymph % 24.2 % NA \.br\ Fallon % 3.7 % NA \.br\ Neutrophil % 70.8 % NA \.br\ Eosin % 0.9 % NA \.br\ Basos % 0.4 % NA \.br\ Lymph Count 5.46 x1000 HI \.br\ Fallon Count 0.84 x1000 NORMAL \.br\ Neutrophil Count [...] mg/dL H (more content not included)... Normal [facility] ED Progress Noteon 2 ED Progress Note 12/03/211954 PT TO ROOM 12 ARRIVED BY SQUAD TRAUMA CALLED FROM FIELD, SEE PAPER CHART FOR INFO. Normal [facility] HEMOon 12-04-2021 DIFF? No Normal [facility] Comment on above: Performed By: #### 1 , 140315, 750993, 2101919 ####[facility] [address] [place], [place] [id number]) [phone] Director: Robert Ybarra MD Erythrocyte distribution width (RBC) [Ratio] 14.7 % High 11.5-14.5 [facility] Comment on above: Performed By: #### 1 , 412527, 194392, 8114094 ####[facility] [address] [place], [place] [id number]) [phone] Director: Robert Ybarra MD Hematocrit (Bld) [Volume fraction] 30.7 % Low 36.0-46.0 [facility] Comment on above: Performed By: #### 1 , 909516, 225500, 7998525 ####[facility] [address] [place], [place] [id number]) [phone] Director: Robert Ybarra MD Hemoglobin (Bld) [Mass/Vol] 10.4 g/dL Low 12.0-16.0 [facility] Comment on above: Performed By: #### 1 , 014909, 871943, 0738142 ####[facility] [address]36[address] [place], [place] [address]) [phone] Director: Robert Ybarra MD Instr WBC 10.1 Normal [facility] Comment on above: Performed By: #### 1 , 672438, 724226, 1740676 ####[facility] [address]ss[address] [place], [place] [id number]) [phone] Director: Robert Ybarra MD MCH (RBC) [Entitic mass] 30.2 pg Normal 27.0-34.0 [facility] Comment on above: Performed By: #### 1 , 593123, 080576, 2923259 ####[facility] [address]wlbx460[address] [place], [place] [address]) [phone] Director: Robert Ybarra MD MCHC (RBC) [Mass/Vol] 33.9 g/dL Normal 32.0-37.0 [facility] [place] [facility] Comment on above: Performed By: #### 1 33558, 735948, 823469, 7507047 ####[facility] [address]avthm[address] [place] [address] Medical Director: Robert Ybarra MD MCV (RBC) [Entitic vol] 89.3 fL Normal 80.0-100.0 [facility] Comment on above: Performed By: #### 1 , 989958, 381632, 7327705 ####[facility] [address]tt[address] [place] [address] Medical Director: Robert Ybarra MD Nucleated RBC 0 /100WBC Normal [facility] Comment on above: Performed By: #### 1 , 610822, 273729, 6233050 ####[facility] [address] [place] [address] Medical Director: Robert Ybarra MD Platelet 310 x1000 Normal 150-450 [facility] Comment on above: Performed By: #### 1 44558, 681945, 107248, 8603449 ####[facility] [address] [place] [address] Medical Director: Robert Ybarra MD Platelet mean volume (Bld) [Entitic vol] 7.2 fL Low 7.4-10.4 [facility] Comment on above: Performed By: #### 1 , 893857, 780422, 1474582 ####[facility] [address]jfl[address] [place] [address] Medical Director: Robert Ybarra MD RBC 3.44 x10 Low 4.20-5.40 [facility] Comment on above: Result Comment: Note : RBC morphology is normal unless otherwise stated. Evaluation performed only if differential is requested. Performed By: #### 1 78985, 484287, 411321, 7090475 ####[facility] [address] [place] [address] Medical Director: Robert Ybarra MD WBC 10.1 x10 Normal 4.5-11.0 [facility] Comment on above: Performed By: #### 1 56198, 793211, 688322, 7403892 ####[facility] [address] [place] [address] Medical Director: Robert Ybarra MD HGB A1Con 12-04-2021 HbA1c (Bld) [Mass fraction] 6.7 % Normal [facility] Comment on above: Result Comment: Refe rence Range: Diabetic Greater than or equal to 6.5 % Prediabetic 5.7?6.4 % Normal Less than 5.7 % Performed By: #### 1 61329 ####[facility] [address] [place] [address] Medical Director: Robert Ybarra MD IRON GROUPon 12-04-2021 Iron [Mass/Vol] 36 ug/dL Low 40-170 [facility] Comment on above: Result Comment: Resu lts may be inaccurate if performed within 14 days of IV iron dextran administration. Performed By: #### 1 98137, 872187, 563880, 3808833 ####[facility] [address] [place] [address] Medical Director: Robert Ybarra MD Saturation 9.8 % Low 20.0-50.0 [facility] Comment on above: Performed By: #### 1 18187, 144958, 010585, 2821678 ####[facility] [address] [place] [address] Medical Director: Robert Ybarra MD TIBC 367 ug/dl Normal 250-450 [facility] Comment on above: Result Comment: Resu lts may be inaccurate if performed within 14 days of IV iron dextran administration. Performed By: #### 1 61582, 153245, 433706, 7095568 ####[facility] [address]hkff[address]107 [place] [address] Medical Director: Robert Ybarra MD MG LEVELon 12-04-2021 Magnesium [Mass/Vol] 1.6 mg/dL Normal 1.6-2.6 [facility] Comment on above: Performed By: #### C D:[id number], 6344599, 277013, 633521, 072015, 880142 #### [facility] [address] [place] [address] Shovel Mechanic: Robert Ybarra MD Nursing Clinical Noteon 11-15 [...] at all times. Hourly rounding completed. Normal [facility] Nursing Clinical Note got report from ED [...] 37.5, bear hugger is still on. Normal [facility] POC Glucoseon 12-04-2021 Glucose [Mass/Vol] 152 mg/dL High 72-100 [facility] Comment on above: Performed By: #### C D:[id number], 5144196, 884260, 946915, 481220, 727382 #### [facility] [address] [place] [address] Shovel Mechanic: Robert Ybarra MD Glucose [Mass/Vol] 177 mg/dL High 72-100 [facility] Comment on above: Performed By: #### C D:[id number], 1620759, 477625, 718157, 913871, 079572 #### [facility] [address] [place] [address] Shovel Mechanic: Robert Ybarra MD Progress Note-Physicianon Progress Note-Physician [...] BMP in 24 hrs. Gertrudis Beckford DO Stippler Normal [facility] Progress Note-Physician Patient: YUSUF MEDINA Age: 85 [...] home. She does not consent to short-term detention facility placement. The family will be available to stay with her until she completely recovered with son arriving from [place] this afternoon. Objective Vital Signs (last 24 hrs) Last Charted Temp Rectal 37.8 degC (DEC 04:00) Heart Rate Peripheral 77 bpm (DEC 04:) Resp Rate H 26br/min (DEC 04:) SBP 124 mmHg (DEC 04:) DBP L 45mmHg (DEC 04:) BMI 23.87 (DEC 04 04:45) General: Alert [...] Plan Diagnosis Abrasion of right elbow - DRN95-EU S50.311A, Emergency medicine, Medical. Acute Hypothermia - IMD21-LP T68.XXXA, Emergency medicine, Medical. Contusion of right thigh - IAF94-BN S70.11XA, Emergency medicine, Medical. Fall - PNED [id number], Medical. Hypothermia due to exposure - PNED [id number], Medical. She has recovered from hypothermic episode and is now at normal baseline mental status and does not consent to detention facility placement. She will be discharged to home with home health care and family will monitor condition and safety.. Diagnosis Chronic kidney disease (CKD), stage III (moderate) - KRG25-ES N18.30, Medical. The patient's creatinine level is at their normal baseline. There is no significant changes in the patient's GFR. The patient's present medications will be continued. The patient's renal function will be monitored.. Diagnosis Diabetes mellitus type II, controlled - JHU01-LJ E11.9, Medical. The patient's blood sugars are adequately controlled. The present medications will be continued, with glucometer checks before meals and at bedtime and sliding scale coverage.. Education and Follow-up: Discharge Planning: Plan to discharge ( To home, Total time that I spent on this patient's discharge is greater than 30 minutes; 32minutes total. ). Normal [facility] T4on 12-04-2021 T4 [Mass/Vol] 9.9 ug/dL Normal 4.5-10.9 [facility] Comment on above: Result Comment: Shireen puncture should occur prior to sulfasalazine administration due to the potential for falsely elevated results. Baseline assay values before administration of sulfasalazine and sulfapyridine therapy would not be affected. Performed By: #### C D:[id number], 9489762, 495886, 815220, 167375, 435409 #### [facility] [address] [place], [place] [address] Shovel Mechanic: Robert Ybarra MD TROPONIN HS 2HRon 12-04-2021 Delta Troponin 2 Hr 39 pg/mL High 0-14 [facility] Comment on above: Result Comment: The term acute myocardial infarction should be used when there is acute myocardial injury with clinical evidence of acute myocardial ischemia and the rise or fall of serial Troponin HS values (delta troponin) greater than or equal to 15 pg/mL with at least one Troponin HS value above the 99th percentile reference range Performed By: #### C D:[id number] #### [facility] [address] [place], [place] [address] Shovel Mechanic: Robert Ybarra MD Troponin HS 2 Hr 105 pg/mL High 3-54 [facility] Comment on above: Performed By: #### C D:[id number] #### [facility] [address] [place] [address] Shovel Mechanic: Robert Ybarra MD TROPONIN HS 6HRon 12-04-2021 Delta Troponin 6 Hr 232 pg/mL [facility] 0-14 [facility] Comment on above: Result Comment: The term acute myocardial infarction should be used when there is acute myocardial injury with clinical evidence of acute myocardial ischemia and the rise or fall of serial Troponin HS values (delta troponin) greater than or equal to 15 pg/mL with at least one Troponin HS value above the 99th percentile reference range Performed By: #### C D:[id number], 4090807, 431927, 703892, 884485, 443044 #### [facility] [address] [place] [address] Shovel Mechanic: Robert Ybarra MD Troponin HS 6 Hr 337 pg/mL Critically abnormal 3-54 [facility] Comment on above: Result Comment: Crit ical Result(s) called at: 04:06:04 on 12/04/2021 by: Byron dennison, RBR to: SF Performed By: #### C D:[id number], 3114854, 703587, 347336, 632324, 740308 #### [facility] [address] [place] [address] Shovel Mechanic: Robert Ybarra MD TSHon 12-04-2021 TSH Qn 0.53 m[IU]/L Normal 0.36-3.74 [facility] Comment on above: Result Comment: High levels of serum biotin may interfere with this test. Performed By: #### C D:[id number], 0749318, 799177, 832233, 958895, 442179 #### [facility] [address] [place] [address] Shovel Mechanic: Robert Ybarra MD U DOA WITH FENTANYLon 2021 Amphetamines, U Negative Normal [facility] Comment on above: Result Comment: Urin e [...] non-medical purposes. Urine for Drugs of Abuse [place] Levels: Barbiturate 200 ng/ml PCP 25 ng/ml Cocaine 300 ng/ml Opiates 2000 ng/ml Amphetamines 1000 ng/ml Benzodiazepines 200 ng/ml THC 50 ng/ml EXTC 500 ng/ml Performed By: #### C D:[id number] ####[facility] [address] [place], [place] [id number]) [phone] Director: Robert Ybarra MD Barbituates, [facility] Comment on above: Performed By: #### C D:[id number] ####[facility] [address] [place], [place] [address]) [phone] Director: Robert Ybarra MD Benzodiazepines, Negative [facility] Comment on above: Performed By: #### C D:[id number] ####[facility] T[address]xdpmr65[address] [place], [place] [address]) [phone] Director: Robert Ybarra MD Cocaine, [facility] Comment on above: Performed By: #### C D:[id number] ####[facility] [address]kl[address]46 [place] [address] Medical Director: Robert Ybarra MD Ecstasy, [facility] Comment on above: Performed By: #### C D:[id number] ####[facility] [address] [place] [id number]) [phone] Director: Robert Ybarra MD Fentanyl, Negative [facility] Comment on above: Result Comment: Urin adam for Fentanyl provides preliminary test results only. A more specific alternate method must be used in order to obtain a confirmed analytical result. Gas chromatography/mass spectrometry is the preferred confirmatory method. Clinical consideration and professional judgment should be applied to any drug of abuse test result, particularly when preliminary positive results are used. Results should not be used for non-medical purposes. Urine Fentanyl [place] Level: 1 ng/ml Performed By: #### C D:[id number] ####[facility] [address] [place] [address] Medical Director: Robert Ybarra MD Opiates, U Negative Normal [facility] Comment on above: Performed By: #### C D:[id number] ####[facility] X[address]mdmjfv91522 [place], [place] [id number]) [phone] Director: Robert Ybarra MD PCP, U Negative Normal [facility] Comment on above: Performed By: #### C D:[id number] ####[facility] [address]uzw[address]69 [place] [address] Medical Director: Robert Ybarra MD THC, U Negative Normal [facility] Comment on above: Performed By: #### C D:[id number] ####[facility] [address]x35936 [place], [place] [address]) [phone] Director: Robert Ybarra MD UAon 12-04-2021 Appearance, U Hazy Normal [facility] Comment on above: Performed By: #### C D:[id number], 6719844, 973547, 878760, 876092, 970867 #### [facility] [address] [place] [address] Shovel Mechanic: Robert Ybarra MD Bacteria, U Occasional Normal [facility] Comment on above: Performed By: #### C D:[id number], 7741564, 798917, 087031, 355257, 004021 #### [facility] [address] [place] [address] Shovel Mechanic: Robert Ybarra MD Bilirubin, U Negative Normal Negative [facility] Comment on above: Performed By: #### C D:[id number], 8104767, 118822, 527366, 696560, 630758 #### [facility] [address] [place] [address] Shovel Mechanic: Robert Ybarra MD Blood, U Large Abnormal Negative [facility] Comment on above: Performed By: #### C D:[id number], 2582733, 275762, 985574, 967707, 534994 #### [facility] [address] [place] [address] Shovel Mechanic: Robert Ybarra MD Color, U Yellow Normal [facility] Comment on above: Performed By: #### C D:[id number], 3433565, 955551, 608710, 217750, 467990 #### [facility] [address] [place] [address] Shovel Mechanic: Robert Ybarra MD Glucose Qual, U 150 mg/dl Abnormal Negative [facility] Comment on above: Performed By: #### C D:[id number], 2304380, 335631, 138091, 567421, 588237 #### [facility] [address] [place] [address] Shovel Mechanic: Robert Ybarra MD Ketones, U Trace Abnormal Negative [facility] Comment on above: Performed By: #### C D:[id number], 3710609, 870721, 345393, 347993, 652022 #### [facility] [address] [place] [address] Shovel Mechanic: Robert Ybarra MD Leukocyte Esterase, U Negative Normal Negative [facility] [place] [facility] Comment on above: Performed By: #### C D:[id number], 4750078, 873904, 186775, 021379, 926680 #### [facility] [address] [place] [address] Shovel Mechanic: Robert Ybarra MD Mucous, U Occasional Normal [facility] Comment on above: Performed By: #### C D:[id number], 3284101, 092216, 757569, 988354, 513925 #### [facility] [address] [place] [address] Shovel Mechanic: Robert Ybarra MD Nitrite, U Negative Normal Negative [facility] Comment on above: Performed By: #### C D:[id number], 7236482, 116292, 676765, 699464, 174910 #### [facility] [address] [place] [address] Shovel Mechanic: Robert Ybarra MD pH, U 5.0 Normal 4.5-8.0 [facility] Comment on above: Performed By: #### C D:[id number], 0035332, 646980, 647042, 936593, 149248 #### [facility] [address] [place] [address] Shovel Mechanic: Robert Ybarra MD Protein, U Negative Normal Negative [facility] Comment on above: Performed By: #### C D:[id number], 2996268, 778475, 888287, 204244, 237482 #### [facility] [address] [place] [address] Shovel Mechanic: Robert Ybarra MD RBC/HPF, U 2 #/HPF Normal 0-3 [facility] Comment on above: Performed By: #### C D:[id number], 3923080, 184608, 854179, 010270, 511541 #### [facility] [address] [place] [address] Shovel Mechanic: Robert Ybarra MD Specific Brunson, U 1.009 Normal 1.001-1.035 [facility] Comment on above: Performed By: #### C D:[id number], 0013541, 588751, 538787, 911546, 436515 #### [facility] [address] [place] [address] Shovel Mechanic: Robert Ybarra MD Squamous Epithelial Cells, U 1 #/HPF Normal [facility] Comment on above: Performed By: #### C D:[id number], 7315270, 919043, 941378, 046856, 159791 #### [facility] [address] [place] [address] Shovel Mechanic: Robert Ybarra MD U MICRO Indicated Normal [facility] Comment on above: Performed By: #### C D:[id number], 7309170, 842952, 436963, 707533, 018775 #### [facility] [address] [place] [address] Shovel Mechanic: Robert Ybarra MD Urobilinogen Qual, U <2.0 mg/dl Normal <2.0 mg/dl [facility] Comment on above: Result Comment: EU/d l and mg/dl are equivalent units. Performed By: #### C D:[id number], 3808962, 721038, 111282, 968624, 630775 #### [facility] [address] [place] [address] 61728 Shovel Mechanic: Robert Ybarra MD WBC/HPF, U 2 #/HPF Normal 0-5 [facility] Comment on above: Performed By: #### C D:[id number], 7141170, 183498, 681354, 305880, 191270 #### [facility] [address] [place] [address] 68401 Shovel Mechanic: Robert Ybarra MD VIT D 25 LEVELon 12-04-2021 Vit D 25 16 ng/mL Normal [facility] Comment on above: Result Comment: Less than 20 ng/ml Deficient 20-30 ng/ml Insufficient 30-100 ng/ml Sufficient Greater than 100 ng/ml Potential toxicity Patients who have recently undergone fluorescein dye angiography in the past 48 to 72 hours (or longer if renal insufficient) may have falsely elevated results. Performed By: #### 9 [id number] ####[facility] [address] [place] [id number] Medical Director: Robert Ybarra MD XR ELBOW [...] by: Silvia Hill DO 12/03/2021 10:59 PM TWIST MAKER Technologist: JUAN PABLO PHILIPPE Dictated By: SILVIA HILL DO Signed By: SILVIA HILL DO Signed Out: 12/03/21 23:59:23 Normal [facility] ALCOHOL SERUMon 12-03-2021 Alcohol, Serum <3 Normal [facility] Comment on above: Result Comment: Note : Alcohol values performed at [facility] are performed on Serum and reported in mg/dl, which is different then the state reporting units of g/dl which is performed on whole blood. Result reporting units are based on test methodology and are not interchangable. Performed By: #### C D:[id number], 8718425, 026083, 288883, 862591, 942689 #### [facility] [address] [place] [address] 91615 Shovel Mechanic: Robert Ybarra MD APTTon 12-03-2021 aPTT Coag (Bld) [Time] 30.4 s Normal 26.0-39.0 So [facility] Comment on above: Performed By: #### C D:[id number], 2703818, 818737, 704141, 808260, 230929 #### [facility] [address] [place] [address] 49343 Shovel Mechanic: Robert Ybarra MD AUTO DIFFon 12-03-2021 Baso Count 0.09 x1000 Normal 0.00-0.20 [facility] Comment on above: Performed By: #### C D:[id number], 5956682, 457450, 562736, 500855, 772128 #### [facility] [address] [place] [address] 21780 Shovel Mechanic: Robert Ybarra MD Basos % 0.4 % Normal [facility] Comment on above: Performed By: #### C D:[id number], 5260415, 159674, 960260, 265461, 339151 #### [facility] [address] [place] [address] 71556 Shovel Mechanic: Robert Ybarra MD Eos Count 0.21 x1000 Normal 0.00-0.50 [facility] Comment on above: Performed By: #### C D:[id number], 9985158, 350913, 514158, 642500, 412787 #### [facility] [address] [place], [place] [address] Shovel Mechanic: Robert Ybarra MD Eosinophils/100 WBC (Bld) 0.9 % Normal [facility] Comment on above: Performed By: #### C D:[id number], 7208017, 978078, 942907, 663955, 481326 #### [facility] [address] [place] [address] 39202 Shovel Mechanic: Robert Ybarra MD Lymph Count 5.46 x1000 High 1.20-4.80 [facility] Comment on above: Performed By: #### C D:[id number], 7652624, 036314, 663944, 583922, 497680 #### [facility] [address] [place] [address] 60737 Shovel Mechanic: Robert Ybarra MD Lymphocytes/100 WBC (Bld) 24.2 % Normal [facility] Comment on above: Performed By: #### C D:[id number], 3785901, 772309, 302349, 981573, 301508 #### [facility] [address] [place] [address] 45129 Shovel Mechanic: Robert Ybarra MD Fallon Count 0.84 x1000 Normal 0.10-1.00 [facility] Comment on above: Performed By: #### C D:[id number], 2675699, 917266, 130100, 820176, 064871 #### [facility] [address] [place] [address] 27878 Shovel Mechanic: Robert Ybarra MD Monocytes/100 WBC (Bld) 3.7 % Normal [facility] Comment on above: Performed By: #### C D:[id number], 5443075, 376649, 389146, 605749, 957447 #### [facility] [address] [place] [address] 93790 Shovel Mechanic: Robert Ybarra MD Neutrophil Count (ANC) 15.99 x1000 High 1.40-8.80 [facility] Comment on above: Performed By: #### C D:[id number], 5560487, 879988, 512284, 028882, 219153 #### [facility] [address] [place] [address] 29110 Shovel Mechanic: Robert Ybarra MD Neutrophils/100 WBC (Bld) 70.8 % Normal [facility] Comment on above: Performed By: #### C D:[id number], 1921210, 132959, 346568, 619401, 527188 #### [facility] [address] [place] [address] 04095 Shovel Mechanic: Robert Ybarra MD Scan Differential Diff Scd Normal [facility] Comment on above: Result Comment: Slid e reviewed by technologist. Performed By: #### C D:[id number], 8403558, 847653, 883694, 783010, 763752 #### [facility] [address] [place] [address] 99137 Shovel Mechanic: Robert Ybarra MD BLD GASon 12-03-2021 MAGGIE TEST Normal [facility] Comment on above: Performed By: #### C D:[id number], 8422737, 622755, 033743, 202360, 389770 #### [facility] [address] [place] [address] Shovel Mechanic: Robert Ybarra MD Base Excess -11.8 mmol/L [facility] Comment on above: Performed By: #### C D:[id number], 2766431, 066786, 970733, 313921, 227573 #### [facility] [address] [place] [address] 79904 Shovel Mechanic: Robert Ybarra MD ePAP 0 cmH20 [facility] Comment on above: Performed By: #### C D:[id number], 3661245, 426600, 292008, 053242, 147582 #### [facility] [address] [place] [address] 92794 Shovel Mechanic: Robert Ybarra MD FIO2 100 % Normal [facility] Comment on above: Performed By: #### C D:230549048, 9198313, 761361, 741255, 473756, 501673 #### [facility] [address] [place] [address] 05598 Shovel Mechanic: Robert Ybarra MD HCO3 (Bld) [Moles/Vol] 15.5 mmol/L Low 22.0-26.0 S [facility] Comment on above: Performed By: #### C D:[id number], 9296467, 757845, 613116, 573899, 476195 #### [facility] [address] [place] [address] 75122 Shovel Mechanic: Robert Ybarra MD iPAP 0 cmH20 [facility] Comment on above: Performed By: #### C D:861291182, 8317398, 545710, 703481, 134304, 836014 #### [facility] [address] [place] [address] 18949 Shovel Mechanic: Robert Ybarra MD O2 L/M 15.0 [facility] Comment on above: Performed By: #### C D:[id number], 6594549, 647882, 180151, 355746, 811924 #### [facility] [address] [place] [address] 48399 Shovel Mechanic: Robert Ybarra MD Oxygen (Bld) [Partial pressure] 64.6 mm[Hg] Low 80.0-100.0 [facility] Comment on above: Performed By: #### C D:214106013, 1300611, 979282, 537390, 789198, 866562 #### [facility] [address] [place] [address] 70371 Shovel Mechanic: Robert Ybarra MD Oxygen saturation in Blood 86.6 % Normal [facility] Comment on above: Performed By: #### C D:925607382, 0874762, 338643, 934518, 750353, 624175 #### [facility] [address] [place] [address] 47581 Shovel Mechanic: Robert Ybarra MD PCO2 41.0 mmHg Normal 35.0-45.0 [facility] Comment on above: Performed By: #### C D:842370514, 7062835, 729366, 025053, 144201, 969872 #### [facility] [address] [place] [address] 31075 Shovel Mechanic: Robert Ybarra MD PEEP 0.0 cmH20 Normal [facility] Comment on above: Performed By: #### C D:[id number], 5006740, 767522, 290652, 013174, 957276 #### [facility] [address] [place] [address] 00982 Shovel Mechanic: Robert Ybarra MD pH (Bld) 7.196 [pH] Critically abnormal 7.350-7.450 [facility] Comment on above: Result Comment: RESU LTS CALLED WITH READBACK TO DR. SABRINA MOHAN 12/03/2021 21:02:41 EST. Performed By: #### C D:[id number], 8306735, 877271, 991041, 731673, 112977 #### [facility] [address] [place] [address] 07426 Shovel Mechanic: Robert Ybarra MD PO2/FiO2 Ratio 65 Low 300-500 [facility] Comment on above: Performed By: #### C D:701276307, 3487555, 676789, 399658, 309227, 640433 #### [facility] [address] [place] [address] 68193 Shovel Mechanic: Robert Ybarra MD Pressure Support. 0 cmH20 [facility] Comment on above: Performed By: #### C D:[id number], 0562412, 933440, 802016, 639281, 907193 #### [facility] [address] [place] [address] 85712 Shovel Mechanic: Robert Ybarra MD RATE 0 bpm [facility] Comment on above: Performed By: #### C D:485606905, 9518792, 234809, 567421, 801763, 746160 #### [facility] [address] [place] [address] 08138 Shovel Mechanic: Robert Ybarra MD TEMP 37.0 degC Normal <=37.0 [facility] Comment on above: Performed By: #### C D:[id number], 7845934, 282149, 812668, 304412, 768554 #### [facility] [address] [place] [address] 42372 Shovel Mechanic: Robert Ybarra MD Type of Specimen Venous Normal [facility] Comment on above: Result Comment: RR A RT = Right Artery RB ART = Right Brachial Artery LR ART = Left Radial Artery LB ART = Left Brachial Artery RF ART = Right Femoral Artery LF ART = Left Femoral Artery Performed By: #### C D:[id number], 8854745, 404792, 468366, 234961, 673335 #### [facility] [address] [place] [address] Shovel Mechanic: Robert Ybarra MD Ventilation Mask [facility] Comment on above: Performed By: #### C D:365786041, 7044118, 688725, 341890, 698217, 204764 #### [facility] [address] [place] [address] Shovel Mechanic: Robert Ybarra MD VT 00 mL [facility] Comment on above: Performed By: #### C D:585092190, 3639315, 018525, 393190, 263835, 164527 #### [facility] [address] [place] [address] 68832 Shovel Mechanic: Robert Ybarra MD COMPMETAon 12-03-2021 Albumin/Globulin [Mass ratio] 1.3 {ratio} [facility] Comment on above: Performed By: #### C D:127901237, 9499692, 882204, 709568, 932163, 727739 #### [facility] [address] [place] [address] 97656 Shovel Mechanic: Robert Ybarra MD GFR AA 36 [facility] Comment on above: Result Comment: Afri can Gibraltarian GFR Calc Medical judgement is necessary to [...] for drug dosing. Performed By: #### C D:[id number], 1061901, 220261, 928763, 662230, 445871 #### [facility] [address] [place] [address] Shovel Mechanic: Robert Ybarra MD Glomerular Filtration Rate 30 mL/min/1.73m? Normal [facility] Comment on above: Result Comment: Non GFR [...] for drug dosing. Performed By: #### C D:542228385, 1603000, 746851, 113999, 582193, 517230 #### [facility] [address] [place] [address] 70632 Shovel Mechanic: Robert Ybarra MD Osmolality [Osmolality] 297 mosm/kg High 275-295 [facility] Comment on above: Performed By: #### C D:054397889, 7160588, 596500, 092330, 492009, 170771 #### [facility] [address] [place] [address] 98193 Shovel Mechanic: Robert Ybarra MD Urea nitrogen/Creatinine [Mass ratio] 27.3 mg/mg Normal [facility] Comment on above: Performed By: #### C D:431794110, 2694963, 993759, 640202, 855787, 695604 #### [facility] [address] [place] [address] 84985 Shovel Mechanic: Robert Ybarra MD Albumin [Mass/Vol] 3.2 g/dL Low 3.4-5.0 [facility] Comment on above: Performed By: #### C D:[id number], 7886487, 782721, 875144, 764085, 762971 #### [facility] [address] [place] [address] 91359 Shovel Mechanic: Robert Ybarra MD Alk Phos 60 unit/L Normal 45-117 [facility] Comment on above: Performed By: #### C D:[id number], 7318684, 582567, 584998, 403967, 962863 #### [facility] [address] [place] [address] Shovel Mechanic: Robert Ybarra MD Bilirubin [Mass/Vol] 0.26 mg/dL Normal 0.20-1.00 [facility] Comment on above: Result Comment: Use of this assay is not recommended for patients undergoing treatment with eltrombopag due to the potential for falsely elevated results. Performed By: #### C D:[id number], 5430820, 849383, 881298, 663907, 300582 #### [facility] [address] [place] [address] 01779 Shovel Mechanic: Robert Ybarra MD Calcium [Mass/Vol] 8.9 mg/dL Normal 8.5-10.5 [facility] Comment on above: Performed By: #### C D:143588261, 4445113, 205450, 632388, 415922, 182847 #### [facility] [address] [place] [address] 86231 Shovel Mechanic: Robert Ybarra MD Chloride [Moles/Vol] 105 mmol/L Normal 100-109 [facility] Comment on above: Performed By: #### C D:990152480, 2577827, 541693, 028801, 635193, 702175 #### [facility] [address] [place] [address] 64500 Shovel Mechanic: Robert Ybarra MD CO2 [Moles/Vol] 18.9 mmol/L Low 21.0-32.0 [facility] Comment on above: Performed By: #### C D:068607250, 3807716, 525735, 130947, 899148, 291269 #### [facility] [address] [place] [address] 80984 Shovel Mechanic: Robert Ybarra MD Creatinine [Mass/Vol] 1.6 mg/dL High 0.6-1.0 [facility] [place] [facility] Comment on above: Performed By: #### C D:488278959, 9039099, 283782, 467220, 289310, 778553 #### [facility] [address] [place] [address] Shovel Mechanic: Robert Ybarra MD Globulin (S) [Mass/Vol] 2.4 g/dL Normal S [facility] Comment on above: Performed By: #### C D:[id number], 6572356, 215719, 915097, 145500, 365883 #### [facility] [address] [place] [address] 68243 Shovel Mechanic: Robert Ybarra MD Glucose [Mass/Vol] 270 mg/dL [...] not be affected. Performed By: #### C D:900124886, 7713196, 529226, 851622, 297297, 963138 #### [facility] [address] [place] [address] 55172 Shovel Mechanic: Robert Ybarra MD GOT 61 unit/L High 15-37 [facility] Comment on above: Result Comment: Resu lts may be increased due to hemolysis. Venipuncture should occur prior to sulfasalazine and/or sulfapyridine administration due to the potential for falsely depressed results. Baseline assay values before administration of sulfasalazine and sulfapyridine therapy would not be affected. Performed By: #### C D:613644953, 3647436, 526879, 073691, 584963, 591151 #### [facility] [address] [place] [address] 47654 Shovel Mechanic: Robert Ybarra MD GPT 49 unit/L Normal 13-56 [facility] Comment on above: Result Comment: Shireen puncture should occur prior to sulfasalazine and/or sulfapyridine administration due to the potential for falsely depressed results. Baseline assay values before administration of sulfasalazine and sulfapyridine therapy would not be affected. Performed By: #### C D:[id number], 6385727, 152277, 223809, 547472, 760929 #### [facility] [address] [place] [address] Shovel Mechanic: Robert Ybarra MD Potassium [Moles/Vol] 5.5 mmol/L High 3.5-5.1 [facility] [place] [facility] Comment on above: Result Comment: Resu lts may be increased due to hemolysis. Performed By: #### C D:[id number], 5385904, 037169, 610683, 672497, 811581 #### [facility] [address] [place] [address] 49230 Shovel Mechanic: Robert Ybarra MD Protein [Mass/Vol] 5.6 g/dL Low 6.0-8.5 [facility] Comment on above: Performed By: #### C D:606010362, 8023867, 176173, 215386, 496296, 905848 #### [facility] [address] [place] [address] 90950 Shovel Mechanic: Robert Ybarra MD Sodium [Moles/Vol] 138 mmol/L Normal 135-145 [facility] Comment on above: Performed By: #### C D:840400290, 7831280, 428102, 463265, 803157, 664629 #### [facility] [address] [place] [address] 49008 Shovel Mechanic: Robert Ybarra MD Urea nitrogen [Mass/Vol] 45 mg/dL High 10-20 [facility] Comment on above: Performed By: #### C D:660630887, 6115616, 375921, 686093, 258300, 145322 #### [facility] [place] [address] Shovel Mechanic: Robert Ybarra MD CT ABD PELVIS WO [...] by: David Barraza MD 12/03/2021 7:49 PM TWIST MAKER Normal [facility] Comment on above: Order Comment: NO OR AL CONTRAST Result Comment: Tech nologist: [facility],AL,ND Dictated By: DAVID BARRAZA MD Signed By: [...] by: David Barraza MD 12/03/2021 7:37 PM TWIST MAKER Technologist: KATJA GARVIN ND Dictated By: DAVID BARRAZA MD Signed By: DAVID BARRAZA MD Signed Out: 12/03/21 20:37:46 Normal [facility] CT CERVICAL SPINE WO CONTRAS Ton 12-03-2021 [...] by: David Barraza MD 12/03/2021 7:40 PM TWIST MAKER Workstation: [id number] Technologist: KATJA GARVIN ND Dictated By: DAVID BARRAZA MD Signed By: DAVID BARRAZA MD Signed Out: 12/03/21 20:40:[address] [facility] [address] CHEST WO CONTRSTon 2021 CT CHEST [...] by: David Barraza MD 12/03/2021 7:46 PM TWIST MAKER Workstation: [id number] Technologist: KATJA GARVIN ND Dictated By: DAVID BARRAZA MD Signed By: DAVID BARRAZA MD Signed Out: 12/03/21 20:46:42 Normal [facility] ED Pre-Arrival Formon 2021 ED Pre-Arrival Form Pre-Arrival Summary Name: ADRYAN-KENDRICK, Current Date: 12/03/2021 19:55:10 EST Gender: Date of : Age: Pre-Arrival Type: EMS ETA: 12/03/2021 20:08:00 EST Primary Care Physician: Presenting Problem: Pre-Arrival User: Laura Smith RN Referring Source: Location: 1 [facility] Emergency Department [address] [place] [address]. [place] [address] Notes: Vital Signs: Doctor Call Back: DNR Status: Miscellaneous Issues: Normal [facility] HEMOon 12-03-2021 DIFF? No Normal [facility] Comment on above: Performed By: #### C D:[id number], 9940217, 748906, 353908, 458166, 220850 #### [facility] [address] [place] [address] 87571 Shovel Mechanic: Robert Ybarra MD Nucleated RBC 0 /100WBC Normal [facility] Comment on above: Performed By: #### C D:[id number], 0913886, 628314, 647988, 293090, 400040 #### [facility] [address] [place] [address] 50000 Shovel Mechanic: Robetr Ybarra MD [facility] Actions See Notes Abnormal [facility] Comment on above: Result Comment: Scan Slide. Perform manual diff if needed. Scan Slide. Path Review if Required. SNV Performed By: #### C D:[id number], 0052576, 020857, 378081, 204492, 085464 #### [facility] [address] [place] [address] 66292 Shovel Mechanic: Robert Ybarra MD Erythrocyte distribution width (RBC) [Ratio] 14.6 % High 11.5-14.5 [facility] Comment on above: Performed By: #### C D:[id number], 6760361, 556518, 817802, 185436, 193723 #### [facility] [address] [place] [address] 30913 Shovel Mechanic: Robert Ybarra MD Hematocrit (Bld) [Volume fraction] 31.2 % Low 36.0-46.0 [facility] Comment on above: Performed By: #### C D:088123499, 4658394, 004271, 224677, 470409, 987400 #### [facility] [address] [place] [address] 22138 Shovel Mechanic: Robert Ybarra MD Hemoglobin (Bld) [Mass/Vol] 10.1 g/dL Low 12.0-16.0 [facility] Comment on above: Performed By: #### C D:290719006, 9053873, 141924, 420517, 836613, 815576 #### [facility] [address] [place] [address] 68190 Shovel Mechanic: Robert Ybarra MD Instr WBC 22.6 Normal [facility] Comment on above: Performed By: #### C D:525455014, 7291351, 587473, 916373, 286145, 018640 #### [facility] [address] [place] [address] 79366 Shovel Mechanic: Robert Ybarra MD MCH (RBC) [Entitic mass] 29.6 pg Normal 27.0-34.0 [facility] Comment on above: Performed By: #### C D:[id number], 5818126, 292791, 965894, 752466, 340692 #### [facility] [address] [place] [address] 48656 Shovel Mechanic: Robert Ybarra MD MCHC (RBC) [Mass/Vol] 32.6 g/dL Normal 32.0-37.0 [facility] [place] [facility] Comment on above: Performed By: #### C D:560532962, 8837205, 746713, 761438, 817648, 171603 #### [facility] [address] [place] [address] 62105 Shovel Mechanic: Robert Ybarra MD MCV (RBC) [Entitic vol] 90.9 fL Normal 80.0-100.0 S [facility] Comment on above: Performed By: #### C D:[id number], 9805100, 887825, 281850, 764671, 281661 #### [facility] [address] [place], [place] [address] Shovel Mechanic: Robert Ybarra MD MDW 16.08 Normal 13.98-20.00 [facility] Comment on above: Result Comment: MDW Interpretation: [...] risk of Sepsis. Performed By: #### C D:[id number], 9738770, 738701, 062769, 184828, 656465 #### [facility] [address] [place] [address] 68722 Shovel Mechanic: Robert Ybarra MD Platelet 347 x1000 Normal 150-450 [facility] Comment on above: Performed By: #### C D:[id number], 6966800, 309214, 809481, 910646, 596165 #### [facility] [address] [place] [address] 64503 Shovel Mechanic: Robert Ybarra MD Platelet mean volume (Bld) [Entitic vol] 6.7 fL Low 7.4-10.4 [facility] Comment on above: Performed By: #### C D:[id number], 7056400, 083738, 044388, 437408, 187122 #### [facility] [address] [place] [address] 58990 Shovel Mechanic: Robert Ybarra MD RBC 3.43 x10 Low 4.20-5.40 [facility] Comment on above: Result Comment: Note : RBC morphology is normal unless otherwise stated. Evaluation performed only if differential is requested. Performed By: #### C D:[id number], 4182828, 722625, 093163, 404263, 298737 #### [facility] [address] [place] [address] Shovel Mechanic: Robert Ybarra MD WBC 22.6 x10 High 4.5-11.0 [facility] Comment on above: Performed By: #### C D:176493676, 4938087, 467923, 487080, 578293, 801046 #### [facility] [address] [place] [address] Shovel Mechanic: Robert Ybarra MD I8on 12-03-2021 Anion gap [Moles/Vol] 16 mmol/L Normal 10-20 [facility] [place] [facility] Comment on above: Performed By: #### C D:[id number] ####[facility] [address] [place] [address] Medical Director: Robert Ybarra MD Chloride [Moles/Vol] 104 mmol/L Normal 98-109 [facility] Comment on above: Performed By: #### C D:[id number] ####[facility] [id number] [place] [address] Medical Director: Robert Ybarra MD CO2 [Moles/Vol] 21 mmol/L Low 24-32 [facility] Comment on above: Performed By: #### C D:[id number] ####[facility] [address] [place] [address] Medical Director: Robert Ybarra MD Creatinine [Mass/Vol] 1.7 mg/dL High 0.6-1.3 [facility] Comment on above: Performed By: #### C D:[id number] ####[facility] Fomgysfo62800 [place] [address] Medical Director: Robert Ybarra MD Glucose [Mass/Vol] 268 mg/dL High 72-110 [facility] Comment on above: Performed By: #### C D:[id number] ####[facility] Ovuivrcw10828 [place] [address] Medical Director: Robert Ybarra MD Hct, I-Stat 30 %PCV Low 40-54 [facility] Comment on above: Performed By: #### C D:[id number] ####[facility] Zuisnely45763 [place], [place] [id number]) [phone] Director: Robert Ybarra MD Hemoglobin (Bld) [Mass/Vol] 10.2 g/dL Low 14.0-18.0 [facility] Comment on above: Result Comment: The calculation of hemoglobin from hematocrit assumes a normal MCHC. Performed By: #### C D:[id number] ####[facility] Neboydkb49823 [place] [address] Medical Director: Robert Ybarra MD Ionized Calcium, I-Stat 1.24 mmol/L Normal 1.12-1.32 [facility] Comment on above: Performed By: #### C D:[id number] ####[facility] Cxlgtfez48729 [place], [place] [id number]) [phone] Director: Robert Ybarra MD Potassium [Moles/Vol] 5.2 mmol/L High 3.7-5.1 [facility] Comment on above: Performed By: #### C D:[id number] ####[facility] Iglttdgr15977 [place] [address] Medical Director: Robert Ybarra MD Sodium [Moles/Vol] 134 mmol/L Low 138-146 [facility] Comment on above: Performed By: #### C D:[id number] ####[facility] [address]ve[address]wjz81144 [place] [address] Medical Director: Robert Ybarra MD Urea nitrogen [Mass/Vol] 43 mg/dL High 8-26 [facility] Comment on above: Performed By: #### C D:[id number] ####[facility] Nqwxnpiv85440 [place] [address] Medical Director: Robert Ybarra MD PT INRon 12-03-2021 INR Coag (PPP) [Relative time] 1.0 {INR} Normal [facility] Comment on above: Result Comment: INR Reference Range: Normal reference range for INR on patients not on anticoagulant therapy: 0.9-1.1 General therapeutic range for patients on anticoagulant therapy: 2.0-3.5 Performed By: #### C D:[id number], [id number], [id number], [id number], [id number] #### [facility] [address] [place] [address] Shovel Mechanic: Robert bYarra MD Protime Patient 11.7 seconds Normal 9.8-13.4 [facility] Comment on above: Performed By: #### C D:[id number], [id number], [id number], [id number], [id number], [id number] #### [facility] [address] [place] [address] Shovel Mechanic: Robert Ybarra MD TROPONIN HS 0HRon 12-03-2021 Troponin HS 0 Hr 66 pg/mL High 3-54 [facility] Comment on above: Performed By: #### C D:[id number], [id number], [id number], [id number], [id number], [id number] #### [facility] [address] [place] [address] Shovel Mechanic: Robert Ybarra MD XR CHEST PORTABLEon 12-03-19 [...] by: David Barraza MD 12/03/2021 7:26 PM TWIST MAKER Technologist: SR JOSE MARTIN,RL Dictated By: DAVID BARRAZA MD Signed By: DAVID BARRAZA MD Signed Out: 12/03/21 20:26:51 Normal [facility] XR PELVIS APon 12-03-2021 XR PELVIS AP [...] by: David Barraza MD 12/03/2021 7:26 PM TWIST MAKER Technologist: SR JOSE MARTIN,RL Dictated By: DAVID BARRAZA MD Signed By: DAVID BARRAZA MD Signed Out: 12/03/21 20:26:00 Normal [facility] pH Venouson 12-03-2021 pH Venous 7.196 Critically abnormal 7.310-7.410 [facility] Comment on above: Result Comment: RESU LTS CALLED WITH READBACK TO DR. SABRINA MOHAN 12/03/2021 21:04:42 EST. Performed By: #### C D:[id number] ####[facility] Uduhtuyp53114 [place] [address] Medical Director: Robert Ybarra MD XR Shoulder - left 3 Viewson 07-14-2021 IMPRESSION: 1. Advanced glenoid humeral osteoarthritis and chronic rotator cuff arthropathy with increased glenoid humeral joint space narrowing compared to the prior study. Meter Reader: PHU Transcribe Date/Time: Jul 14 2021 9:03A Dictated by : MIRNA VIZCAINO MD This examination was interpreted and the report reviewed and electronically signed by: MIRNA VIZCAINO MD on Jul 14 2021 9:05AM [facility] DIVISION OF RADIOLOGY * * *Final Report* [...] left upper lung. DIVISION OF RADIOLOGY Provider, [facility] - 07/14/2021 * * *Final Report* [...] space narrowing compared to the prior study. Meter Reader: PHU Transcribe Date/Time: Jul 14 2021 9:03A Dictated by : MIRNA VIZCAINO MD This examination was interpreted and the report reviewed and electronically signed by: MIRNA VIZCAINO MD on Aug 31 2021 9:05AM [facility] Radiology Study observation (narrative) Mira archibald [facility] XR Shoulder - left 3 ViewsOr dered By: [facility] Provider on 07-14-2021 Vital Signs Date Time Vital Sign Value Performing Clinician Facility 02-13-2025 13:33-0400 Body temperature 97.7 [degF] Liencece Bang DPM Work Phone: 02-13-2025 13:33-0400 Diastolic blood pressure 68 mm[Hg] Lien Bang DPM Work Phone: 02-13-2025 13:33-0400 Heart rate 101 /min Lien Bang DPM Work Phone: 02-13-2025 13:33-0400 Respiratory rate 20 /min Lien Bang DPM Work Phone: 02-13-2025 13:33-0400 SaO2% (BldA) [Mass fraction] 98 % Lien Bang DPM Work Phone: 02-13-2025 13:33-0400 Systolic blood pressure 119 mm[Hg] Lien Bang DPM Work Phone: 01-16-2025 13:41-0500 Body temperature 97.59 [degF] Liencece Bang DPM Work Phone: 01-16-2025 13:41-0500 Diastolic blood pressure 73 mm[Hg] Lien Bang DPM Work Phone: 01-16-2025 13:41-0500 Heart rate 76 /min Lien Bang DPM Work Phone: 01-16-2025 13:41-0500 SaO2% (BldA) [Mass fraction] 96 % Lien Bang DPM Work Phone: 01-16-2025 13:41-0500 Systolic blood pressure 132 mm[Hg] Lien Bang DPM Work Phone: 01-08-2025 13:32-0500 Body temperature 98.1 [degF] Pierce Chi MD Work Phone: 01-08-2025 13:32-0500 Diastolic blood pressure 74 mm[Hg] Pierce Chi MD Work Phone: 01-08-2025 13:32-0500 Heart rate 95 /min Pierce Chi MD Work Phone: 01-08-2025 13:32-0500 SaO2% (BldA) [Mass fraction] 97 % Pierce Chi MD Work Phone: 01-08-2025 13:32-0500 Systolic blood pressure 165 mm[Hg] Pierce Chi MD Work Phone: 01-04-2025 08:05-0500 Body height 152.4 cm Tyesha Singleton MD Work Phone: 01-04-2025 08:05-0500 Body mass index (BMI) [Ratio] 20.24 kg/m2 Tyesha Singleton MD Work Phone: 01-04-2025 08:05-0500 Body weight 47 kg Tyesha Singleton MD Work Phone: 01-04-2025 08:05-0500 Diastolic blood pressure 59 mm[Hg] Tyesha Singleton MD Work Phone: Comment on above: per facility paperwork BP is at baseline 01-04-2025 08:05-0500 Heart rate 84 /min Tyesha Singleton MD Work Phone: 01-04-2025 08:05-0500 Respiratory rate 16 /min Tyesha Singleton MD Work Phone: 01-04-2025 08:05-0500 Systolic blood pressure 165 mm[Hg] Tyesha Singleton MD Work Phone: Comment on above: per facility paperwork BP is at baseline 01-02-2025 08:44-0500 Diastolic blood pressure 72 mm[Hg] [place] Maria Luisa g MD Work Phone: Comment on above: recheck 01-02-2025 08:44-0500 Systolic blood pressure 152 mm[Hg] Grupo Mendez MD Work Phone: Comment on above: recheck 01-02-2025 08:41-0500 Body mass index (BMI) [Ratio] 20.24 kg/m2 Grupo Mendez MD Work Phone: 01-02-2025 08:41-0500 Body temperature 97.9 [degF] Grupo Mendez MD Work Phone: 01-02-2025 08:41-0500 Body weight 47 kg Grupo Mendez MD Work Phone: 01-02-2025 08:41-0500 Heart rate 85 /min Grupo Mendez MD Work Phone: 01-02-2025 08:41-0500 Respiratory rate 18 /min Grupo Mendez MD Work Phone: 01-02-2025 08:41-0500 SaO2% (BldA) [Mass fraction] 96 % Grupo Mendez MD Work Phone: 12-26-2024 13:07-0500 Body temperature 97.3 [degF] Lien Bang DPM Work Phone: 12-26-2024 13:07-0500 Diastolic blood pressure 79 mm[Hg] Lien Bang DPM Work Phone: 12-26-2024 13:07-0500 Heart rate 96 /min Lien Bang DPM Work Phone: 12-26-2024 13:07-0500 SaO2% (BldA) [Mass fraction] 95 % Lien Bang DPM Work Phone: 12-26-2024 13:07-0500 Systolic blood pressure 164 mm[Hg] Lien Alex DPTj Work Phone: 12-02-2024 12:26-0500 SaO2% (BldA) [Mass fraction] 92 % UNKNOWN PROVIDER [facility] Comment on above: Order Comment: Specimen Type: ARTERIAL B LOOD SPECIMENOrdering Facility: [facility] Address: [address] [place] [address] [place] [id number] Performed By: #### A LLBG ####[facility]ATORY[id number] [id number] [place] [id number] 10-29-2024 16:27-0500 Diastolic blood pressure 72 mm[Hg] Ab Benson MD Work Phone: Comment on above: trupbp 10-29-2024 16:27-0500 Heart rate 66 /min Ab Benson MD Work Phone: 10-29-2024 16:27-0500 Systolic blood pressure 159 mm[Hg] Ab Benson MD Work Phone: Comment on above: trupbp 10-29-2024 16:24-0500 Body mass index (BMI) [Ratio] 20.67 kg/m2 Ab Benson MD Work Phone: 10-29-2024 16:24-0500 Body temperature 99.3 [degF] Ab Benson MD Work Phone: 10-29-2024 16:24-0500 Body weight 48 kg Ab Benson MD Work Phone: 10-29-2024 16:24-0500 SaO2% (BldA) [Mass fraction] 97 % Ab Benson MD Work Phone: 09-17-2024 15:04-0500 Body mass index (BMI) [Ratio] 22.48 kg/m2 Grupo Mendez MD Work Phone: 09-17-2024 15:04-0500 Body weight 52.2 kg Grupo Mendez MD Work Phone: 09-17-2024 15:04-0500 Diastolic blood pressure 88 mm[Hg] Grupo ochoa MD Work Phone: 09-17-2024 15:04-0500 Heart rate 92 /min Grupo Mendez MD Work Phone: 09-17-2024 15:04-0500 Respiratory rate 16 /min Grupo Mendez MD Work Phone: 09-17-2024 15:04-0500 SaO2% (BldA) [Mass fraction] 99 % Grupo Mendez MD Work Phone: 09-17-2024 15:04-0500 Systolic blood pressure 166 mm[Hg] Grupo Mendez MD Work Phone: 09-13-2024 10:45-0400 Diastolic blood pressure 60 mm[Hg] Migdalia Archibald Work Phone: 09-13-2024 10:45-0400 Systolic blood pressure 150 mm[Hg] Migdalia Cramer MD Work Phone: 09-13-2024 10:20-0400 Body mass index (BMI) [Ratio] 22.09 kg/m2 Migdalia Cramer MD Work Phone: 09-13-2024 10:20-0400 Body weight 51.3 kg Migdalia Cramer MD Work Phone: 09-13-2024 10:20-0400 Heart rate 98 /min Migdalia Cramer MD Work Phone: 08-14-2024 10:36-0400 Body mass index (BMI) [Ratio] 22 kg/m2 Migdalia Cramer MD Work Phone: 08-14-2024 10:36-0400 Body temperature 97.59 [degF] Migdalia Cramer MD Work Phone: 08-14-2024 10:36-0400 Body weight 51.1 kg Migdalia Cramer MD Work Phone: 08-14-2024 10:36-0400 Diastolic blood pressure 68 mm[Hg] Migdalia Archibald Work Phone: 08-14-2024 10:36-0400 Heart rate 91 /min Migdalia Cramer MD Work Phone: 08-14-2024 10:36-0400 SaO2% (BldA) [Mass fraction] 96 % Migdalia Cramer MD Work Phone: 08-14-2024 10:36-0400 Systolic blood pressure 125 mm[Hg] Migdalia Cramer MD Work Phone: 07-12-2024 09:59-0400 Diastolic blood pressure 70 mm[Hg] Migdalia Archibald Work Phone: 07-12-2024 09:59-0400 Systolic blood pressure 142 mm[Hg] Migdalia Cramer MD Work Phone: 07-12-2024 09:31-0400 Body mass index (BMI) [Ratio] 21.23 kg/m2 Migdalia Cramer MD Work Phone: 07-12-2024 09:31-0400 Body weight 49.3 kg Migdalia Cramer MD Work Phone: 07-12-2024 09:31-0400 Heart rate 80 /min Migdalia Cramer MD Work Phone: 04-13-2023 15:23-0400 Body temperature 98.01 [degF] Willie Mitsch GENERAL FORECASTER.MEDICAL MANAGEMENT SPECIALIST Work Phone: 04-13-2023 15:23-0400 Body weight 54.07 kg Willie Mitsch GENERAL FORECASTER.MEDICAL MANAGEMENT SPECIALIST Work Phone: 04-13-2023 15:23-0400 Diastolic blood pressure 63 mm[Hg] Willie Mitsch GENERAL FORECASTER.MEDICAL MANAGEMENT SPECIALIST Work Phone: 04-13-2023 15:23-0400 Heart rate 80 /min Willie Mitsch GENERAL FORECASTER.MEDICAL MANAGEMENT SPECIALIST Work Phone: 04-13-2023 15:23-0400 Systolic blood pressure 125 mm[Hg] Willie Mitsch GENERAL FORECASTER.MEDICAL MANAGEMENT SPECIALIST Work Phone: 03-29-2023 15:26-0400 Body weight 53.34 kg Willie Mitsch GENERAL FORECASTER.MEDICAL MANAGEMENT SPECIALIST Work Phone: 03-29-2023 15:26-0400 Diastolic blood pressure 71 mm[Hg] Willie Mitsch GENERAL FORECASTER.MEDICAL MANAGEMENT SPECIALIST Work Phone: 03-29-2023 15:26-0400 Heart rate 80 /min Willie Mitsch GENERAL FORECASTER.MEDICAL MANAGEMENT SPECIALIST Work Phone: 03-29-2023 15:26-0400 Systolic blood pressure 150 mm[Hg] Willie Mitsch GENERAL FORECASTER.MEDICAL MANAGEMENT SPECIALIST Work Phone: 03-17-2023 14:18-0400 Body weight 54.88 kg Willie Mitsch GENERAL FORECASTER.MEDICAL MANAGEMENT SPECIALIST Work Phone: 03-17-2023 14:18-0400 Diastolic blood pressure 67 mm[Hg] Willie Mitsch GENERAL FORECASTER.MEDICAL MANAGEMENT SPECIALIST Work Phone: 03-17-2023 14:18-0400 Heart rate 86 /min Willie Mitsch GENERAL FORECASTER.MEDICAL MANAGEMENT SPECIALIST Work Phone: 03-17-2023 14:18-0400 Systolic blood pressure 146 mm[Hg] Willie Mitsch GENERAL FORECASTER.MEDICAL MANAGEMENT SPECIALIST Work Phone: 10-23-2022 08:59-0500 Body weight 55.48 kg Migdalia Cramer MD Work Phone: 10-23-2022 08:59-0500 Diastolic blood pressure 82 mm[Hg] Migdalia Archibald Work Phone: 10-23-2022 08:59-0500 Heart rate 87 /min Migdalia Cramer MD Work Phone: 10-23-2022 08:59-0500 Systolic blood pressure 145 mm[Hg] Migdalia Cramer MD Work Phone: 05-08-2022 08:07-0400 Diastolic blood pressure 70 mm[Hg] Migdalia Archibald Work Phone: 05-08-2022 08:07-0400 Heart rate 70 /min Migdalia Cramer MD Work Phone: 05-08-2022 08:07-0400 Systolic blood pressure 130 mm[Hg] Migdalia Cramer MD Work Phone: 05-08-2022 08:05-0400 Body weight 53.48 kg Migdalia Cramer MD Work Phone: 04-03-2022 08:08-0400 Body temperature 98.01 [degF] Migdalia Cramer MD Work Phone: 04-03-2022 08:08-0400 Body weight 52.34 kg Migdalia Cramer MD Work Phone: 04-03-2022 08:08-0400 Diastolic blood pressure 68 mm[Hg] Migdalia Archibald Work Phone: 04-03-2022 08:08-0400 Heart rate 76 /min Migdalia Cramer MD Work Phone: 04-03-2022 08:08-0400 Systolic blood pressure 137 mm[Hg] Migdalia Cramer MD Work Phone: Encounters Encounter Date Encounter Type Care Provider Facility Start: 05-01-2025 End: 05-01-2025 Telephone encounter Tyesha Singleton MD Work Phone: Rheumatology Start: 04-29-2025 ambulatory Mario Depshanell RODAS Facili ty:[facility] Start: 04-26-2025 ambulatory Mario Depshanell RODAS Facili ty:[facility] Start: 04-10-2025 ambulatory Mario RODAS Facili ty:[facility] Start: 04-10-2025 Registered Referred Mario Mak [facility] Start: 04-01-2025 End: 04-01-2025 ambulatory Mario Mak MD [facility] Work Phone: Start: 04-01-2025 End: 04-01-2025 Departed Referred Mario Mak MD -[facility] Start: 04-01-2025 Registered Referred Mario Mak MD -[facility] Start: 04-01-2025 End: 04-01-2025 ambulatory Mario RODAS Facility:[facility] Start: 03-12-2025 End: 03-12-2025 ambulatory Mario Mak MD [facility] Work Phone: Start: 03-12-2025 End: 03-12-2025 Departed Referred Mario Mak MD -[facility] Start: 03-12-2025 Registered Referred Mario Mak MD -[facility] Start: 03-12-2025 End: 03-12-2025 ambulatory Mario RODAS Facility:[facility] Start: 03-04-2025 End: 03-04-2025 ambulatory Mario Mak MD [facility] Work Phone: Start: 03-04-2025 End: 03-04-2025 Departed Referred Mario Mak MD -[facility] Start: 03-04-2025 End: 03-04-2025 ambulatory Mario RODAS Facility:[facility] Start: 02-13-2025 End: 02-13-2025 Patient encounter procedure Lien Bang DPTj Work Phone: Plastic Surgery Comment on above: 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) Start: 02-13-2025 End: 02-13-2025 ambulatory LIEN BANG Facility:[facility] Start: 02-11-2025 End: 02-11-2025 Telephone encounter Tyesha Singleton MD Work Phone: Rheumatology Comment on above: Results (Lab results ) Start: 02-04-2025 End: 02-04-2025 ambulatory Mario Mak MD [facility] Work Phone: Start: 02-04-2025 End: 02-04-2025 Departed Referred Mario Mak MD [facility] Start: 02-04-2025 Registered Referred Mario Mak MD [facility] Start: 02-04-2025 End: 02-04-2025 ambulatory Mario RODAS Facility:[facility] Start: 01-16-2025 End: 01-18-2025 Refill Willie Kaur APRN.CNP Work Phone: Family Medicine Comment on above: Refill Request Start: 01-16-2025 End: 01-16-2025 ambulatory LIEN BANG Facility:[facility] Start: 01-16-2025 End: 01-16-2025 Patient encounter procedure Lien Bang DPTj Work Phone: Plastic Surgery Comment on above: Pressure injury of r ight ankle, stage 3 (HCC) (Primary Dx) Start: 01-15-2025 End: 01-15-2025 ambulatory Mario Mak MD [facility] Work Phone: Start: 01-15-2025 End: 01-15-2025 Departed Referred Mario Mak MD [facility] Start: 01-15-2025 End: 01-15-2025 ambulatory Mario RODAS Facility:[facility] Start: 01-08-2025 End: 01-08-2025 Patient encounter procedure [...] 01-08-2025 End: 01-08-2025 ambulatory UNKNOWN PROVIDER Facility:[facility] Start: 01-07-2025 ambulatory Marioscottie Coburn ty:[facility] Start: 01-07-2025 Registered Referred Mario Mak MD -[facility] Start: 01-04-2025 End: 01-04-2025 ambulatory MIGDALIA Dragan [place] [facility] [place] Facility:[facility] Start: 01-04-2025 End: 01-04-2025 Office outpatient new 45 minutes Tyesha Singleton MD Work Phone: Rheumatology Comment on above: Pseudogout (Primary Dx); Ankle swelling, right; Medication monitoring encounter Start: 01-03-2025 End: 01-10-2025 Telephone encounter Migdalia Cramer MD Work Phone: [address] [place] [address] Comment on above: Patient Update Start: 01-02-2025 End: 01-02-2025 Telephone encounter Aditi Alvaro ALLEN Work Phone: Hematology/Oncology Comment on above: Distress Assessment Start: 01-02-2025 End: 01-02-2025 ambulatory MIGDALIA CRAMER Facility:[facility] Start: 01-02-2025 End: 01-02-2025 ambulatory Grupo Mendez MD Work Phone: Hematology/Oncology Comment on above: Leukocytosis, unspec ified type (Primary Dx); Normocytic anemia; Vitamin B6 deficiency; Cellulitis of right ankle Start: 01-02-2025 End: 01-02-2025 Patient encounter procedure Grupo Mendez MD Work Phone: Hematology/Oncology Start: 2024 ambulatory Marioscottie Coburn ty:[facility] Start: 2024 Registered Referred Mario Mak MD -[facility] Start: 12-26-2024 End: 12-26-2024 Telephone encounter Migdalia Cramer MD Work Phone: Internal Medicine [place] Comment on above: rehab discharge conc erns Start: 12-26-2024 End: 12-26-2024 Patient encounter procedure Lien Bang DPM Work Phone: Plastic Surgery Comment on above: 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) Start: 12-26-2024 End: 12-26-2024 ambulatory Migdalia Cramer MD Work Phone: [facility] Comment on above: Call with Nasreen foster Start: 12-25-2024 End: 12-25-2024 Refill Willie Kaur APRN.MEDICAL MANAGEMENT SPECIALIST Work Phone: [facility] Comment on above: Refill Request Start: 12-24-2024 ambulatory Mario Coburn ty:[facility] Start: 12-24-2024 Registered Referred Mario Mak MD -[facility] Start: 12-18-2024 End: 12-18-2024 E-mail encounter from caregiver Willie Kaur APRN.CNP Work Phone: [facility] Start: 12-18-2024 End: 12-18-2024 Follow-up encounter Willie Kaur APRN.MEDICAL MANAGEMENT SPECIALIST Work Phone: [facility] Comment on above: [facility] follow up Start: 12-17-2024 ambulatory Mario Coburn ty:[facility] Start: 12-17-2024 Registered Referred Mario Mak MD -[facility] Start: 12-12-2024 End: 12-12-2024 Evaluation and management of inpatient DANIEL NATHSenia CASTILLO Facility:[facility] Start: 12-10-2024 End: 12-10-2024 Evaluation and management of inpatient DANIEL MUROSenia CASTILLO Facility:[facility] Start: 11-29-2024 End: 01-08-2025 Telephone encounter Pierce Chi MD Work Phone: [facility] Comment on above: [employer] (FO R IDC USE ONLY) Start: 11-28-2024 End: 11-28-2024 ambulatory Pierce Chi MD Work Phone: [place] Provider Adult Comment on above: [employer] Start Start: 11-26-2024 End: 11-26-2024 Telephone encounter Grupo Mendez MD Work Phone: Hematology/Oncology Comment on above: Appointment Start: 11-23-2024 End: 11-27-2024 Refill Willie Kaur APRN.MEDICAL MANAGEMENT SPECIALIST Work Phone: [facility] Comment on above: Refill Request Start: 11-21-2024 End: 12-12-2024 Evaluation and management of inpatient SHAUN SUAREZ Facility:[facility] Start: 11-21-2024 End: 11-22-2024 ambulatory Migdalia Cramer MD Work Phone: [facility] Comment on above: MRi and tests Start: 11-19-2024 End: 11-19-2024 ambulatory MIGDALIA CRAMER Facility:[facility] Start: 11-19-2024 End: 11-19-2024 ambulatory MIGDALIA CRAMER Facility:[facility] Start: 11-19-2024 End: 11-19-2024 Subsequent hospital visit by physician [facility] (I-Stat/3t) MRI [facility] Comment on above: Chronic pain of righ t ankle [M25.571, G89.29] Start: 11-06-2024 End: 11-06-2024 ambulatory Grupo Mendez MD Work Phone: Hematology/Oncology Comment on above: [employer] up coming a ppt Start: 11-06-2024 End: 12-11-2024 Telephone encounter Willie Kaur APRN.MEDICAL MANAGEMENT SPECIALIST Work Phone: [facility] Comment on above: Appointment (Rheumat ology) Start: 11-05-2024 End: 11-05-2024 Telephone encounter Grupo Mendez MD Work Phone: Hematology/Oncology Comment on above: Results Start: 11-01-2024 End: 11-01-2024 ambulatory MIGDALIA CRAMER Facility:[facility] Start: 11-01-2024 End: 11-01-2024 ambulatory MIGDALIA CRAMER Facility:[facility] Start: 11-01-2024 End: 11-01-2024 Patient encounter procedure Simone Kevin MD Work Phone: Orthopaedic Surgery [facility] Comment on above: Right ankle swelling (Primary Dx); Chronic pain of right ankle Start: 11-01-2024 End: 11-01-2024 Subsequent hospital visit by physician Max Counts Include [facility] 1 Xray [facility] Comment on above: Right ankle swelling [M25.471] Start: 10-29-2024 End: 10-29-2024 ambulatory MIGDALIA CRAMER Facility:[facility] Start: 10-29-2024 End: 10-29-2024 Office outpatient visit 15 minutes Ab Benson MD Work Phone: Family Medicine Comment on above: Chronic pain of righ t ankle (Primary Dx) Start: 10-11-2024 End: 10-12-2024 Refill Willie Kaur APRN.CNP Work Phone: Family Medicine Comment on above: Refill Request Start: 09-20-2024 End: 09-20-2024 ambulatory MIGDALIA CRAMER Facility:[facility] Start: 09-20-2024 End: 09-20-2024 Patient encounter procedure Simone Kevin MD Work Phone: Orthopaedic Surgery [facility] Comment on above: Right ankle swelling ; Closed nondisplaced fracture of right calcaneus, unspecified portion of calcaneus, initial encounter Start: 09-19-2024 End: 09-19-2024 ambulatory MIGDALIA CRAMER Facility:[facility] Start: 09-19-2024 End: 09-19-2024 Subsequent hospital visit by physician Max Counts Include 234 Beds At [facility] [place] Work Phone: Radiology Comment on above: Pain in joint involv ing right ankle and foot [M25.571] Start: 09-18-2024 End: 09-18-2024 Telephone encounter Grupo Mendez MD Work Phone: Hematology/Oncology Comment on above: Results (Suspicion f or calcaneal bone fracture ) Start: 09-18-2024 ambulatory GRUPO MENDEZ Facili :[facility] Start: 09-18-2024 End: 09-18-2024 Subsequent hospital visit by physician [facility] Work Phone: Radiology Comment on above: Right ankle swelling [M25.471] Start: 09-17-2024 End: 09-18-2024 ambulatory MIGDALIA CRAMER Facility:[facility] Start: 09-17-2024 End: 09-17-2024 Subsequent hospital visit by physician Max Counts Include 234 Beds At [facility] [place] Work Phone: Radiology Comment on [...] Start: 09-13-2024 End: 09-13-2024 ambulatory MIGDALIA CRAMER Facility:[facility] Start: 09-13-2024 End: 09-13-2024 Patient encounter procedure [...] Work Phone: Family Medicine Comment on above: Lab results and next steps Start: 09-04-2024 End: 09-05-2024 E-mail encounter from caregiver Migdalia Cramer MD Work Phone: Family Medicine Start: 08-21-2024 End: 08-24-2024 Refill Migdalia Cramer MD Work Phone: Family [facility] Comment on above: Refill Request Results Start: 08-14-2024 End: 08-14-2024 ambulatory MIGDALIA CRAMER Facility:[facility] Start: 08-14-2024 End: 08-14-2024 ambulatory MIGDALIA CRAMER Facility:[facility] Start: 08-14-2024 End: 08-14-2024 Office outpatient visit 25 minutes Migdalia Cramer MD Work Phone: Family [facility] Comment on above: Generalized weakness (Primary Dx); Headache, unspecified headache type; Leukocytosis, unspecified type; CKD stage 3 due to type 2 diabetes mellitus (HCC); Normocytic anemia; Essential hypertension; Insomnia; Arthralgia, unspecified joint Start: 08-13-2024 End: 08-13-2024 Emergency department patient visit MARIUSZ ROMO Facility:[facility] Start: 08-13-2024 End: 08-13-2024 ambulatory Migdalia Cramer MD Work Phone: Family [facility] Comment on above: Fatigue Start: 08-09-2024 End: 08-10-2024 Refill Willie Kaur APRN.CNP Work Phone: [facility] Comment on above: Refill Request Start: 07-19-2024 End: 07-19-2024 Refill Migdalia Cramer MD Work Phone: [facility] Comment on above: Refill Request Start: 07-12-2024 End: 07-12-2024 ambulatory MIGDALIA CRAMER Facility:[facility] Start: 07-12-2024 End: 07-12-2024 Office outpatient visit 25 minutes Migdalia Cramer MD Work Phone: [facility] Comment on above: Essential hypertensi on (Primary Dx); CKD stage 3 due to type 2 diabetes mellitus (HCC); Hypertensive kidney disease with stage 3b chronic kidney disease (HCC); Hyperlipidemia associated with type 2 diabetes mellitus (HCC) (HCC); Diabetes mellitus, non-insulin dependent (NIDDM or type II) (HCC); Dyslipidemia; Weight loss; Iron deficiency anemia, unspecified iron deficiency anemia type Start: 07-11-2024 End: 07-11-2024 ambulatory MIGDALIA CRAMER Facility:[facility] Start: 05-23-2024 Refill Willie Mitsch GENERAL FORECASTER.MEDICAL MANAGEMENT SPECIALIST Work Phone: [facility] Comment on above: Refill Request Start: 04-25-2024 Refill Willie Mitsch GENERAL FORECASTER.MEDICAL MANAGEMENT SPECIALIST Work Phone: [facility] Comment on above: Refill Request Start: 04-16-2024 Telephone encounter Migdalia hidalgo MD Work Phone: [facility] Comment on above: Medication Problem Start: 03-21-2024 End: 03-21-2024 Patient encounter procedure Gertrudis Gordon Fly DO Work Phone: Ophthalmology Comment on above: Type 2 diabetes karen itus without retinopathy (HCC) (Primary Dx); Pseudophakia Start: 03-13-2024 ambulatory Lien Rutledge MA [facility] Start: 03-13-2024 Patient encounter procedure Lien Rutledge MA [facility] Comment on above: Population Health Na vigation Outreach ([facility]/) Start: 02-28-2024 Refill Migdalia gordon MD Work Phone: [facility] Start: 02-01-2024 Refill Ok [place] Work Phone: [facility] Comment on above: Refill Request Start: 01-31-2024 Refill Ok [place] Work Phone: [facility] Comment on above: Refill Request Start: 01-23-2024 Refill Migdalia gordon MD Work Phone: [facility] Comment on above: Refill Request Start: 01-11-2024 Refill Migdalia gordon MD Work Phone: [facility] Start: 10-14-2023 Refill Migdalia gordon MD Work Phone: [facility] Comment on above: Refill Request Start: 09-05-2023 Refill Willie Mitsch GENERAL FORECASTER.MEDICAL MANAGEMENT SPECIALIST Work Phone: Family Medicine Comment on above: Refill Request Start: 08-31-2023 Telephone encounter Migdalia hidalgo MD Work Phone: Family Medicine Comment on above: Medication Problem Start: 06-23-2023 Refill Migdalia gordon MD Work Phone: Family Medicine Comment on above: Refill Request Start: 06-02-2023 Refill Migdalia gordon MD Work Phone: Family Medicine Comment on above: Refill Request Start: 05-11-2023 ambulatory Migdalia gordon MD Work Phone: Family Medicine Comment on above: Blood sugar levels Start: 04-28-2023 ambulatory No Pcp Christelle [place] [facility] [place] Start: 04-19-2023 Telephone encounter Migdalia hidalgo MD Work Phone: Family Medicine Comment on above: Appointment (Re: [facility] appointment) Patient Question (Re : Blood Glucose Monitor) Start: 04-13-2023 End: 04-13-2023 Patient encounter procedure Willie Kaur APRN.MEDICAL MANAGEMENT SPECIALIST Work Phone: Family Medicine Comment on above: Diabetes mellitus, n on-insulin dependent (NIDDM or type II) (HCC) (Primary Dx); CKD stage 3 due to type 2 diabetes mellitus (HCC) Start: 03-29-2023 End: 03-29-2023 Patient encounter procedure Willie Kaur APRN.MEDICAL MANAGEMENT SPECIALIST Work Phone: Family Medicine Comment on above: [...] 03-17-2023 End: 03-17-2023 Patient encounter procedure Willie Mitsch GENERAL FORECASTER.MEDICAL MANAGEMENT SPECIALIST Work Phone: Family Medicine Comment on above: Pain in both hands ( Primary Dx); Pain in both wrists; Leukocytosis, unspecified type; Type 2 diabetes mellitus with stage 3 chronic kidney disease, without long-term current use of insulin, unspecified whether stage 3a or 3b CKD (HCC); Muscular deconditioning Start: 03-10-2023 Patient Outreach Lien jensen RN Work Phone: [employer] Comment on above: Transition Of Care ( [facility] [place], initial outreach) Start: 02-22-2023 Refill Willie Mitsch GENERAL FORECASTER.MEDICAL MANAGEMENT SPECIALIST Work Phone: Family Medicine [place] Comment on above: Refill Request Start: 01-19-2023 Telephone encounter Migdalia hidalgo MD Work Phone: Family Medicine Comment on above: Refill Request Start: 12-28-2022 Refill Willie Mitsch GENERAL FORECASTER.MEDICAL MANAGEMENT SPECIALIST Work Phone: Family [facility] Comment on above: Refill Request Start: 10-23-2022 End: 10-23-2022 Patient encounter procedure Migdalia Cramer MD Work Phone: Family [facility] Comment on above: Diabetes mellitus, n on-insulin [...] Medicine Comment on above: Refill Request Start: 08-17-2022 Refill Willie Mitsch GENERAL FORECASTER.MEDICAL MANAGEMENT SPECIALIST Work Phone: Family [facility] Comment on above: Refill Request (SEE RX NOTES) Start: 06-10-2022 Telephone encounter Migdalia hidalgo MD Work Phone: Family Medicine Comment on above: Orders (Cologuard no t completed) Start: 05-28-2022 Telephone encounter Migdalia hidalgo MD Work Phone: Family Medicine Comment on above: Medication Problem ( Glyburide) [...] Start: 04-27-2022 ambulatory Katia Farooq RN IN [facility] Start: 04-27-2022 Follow-up encounter Katia love RN [employer] Comment on above: Transition Of Care ( TCM follow up) Start: 04-26-2022 Telephone encounter Migdalia hidalgo MD Work Phone: Family Medicine [place] Comment on above: Patient Question Start: 04-08-2022 Telephone encounter Migdalia hidalgo MD Work Phone: Family Medicine Comment on above: Lab Orders Start: 04-03-2022 End: 04-03-2022 Patient encounter procedure Migdalia Cramer MD Work Phone: Family Medicine Comment on above: Acute cystitis witho ut [...] 03-30-2022 ambulatory Migdalia gordon MD Work Phone: [facility] Comment on above: Pain; UTI Start: 03-29-2022 Telephone encounter Willie Christos norman APRN.MEDICAL MANAGEMENT SPECIALIST Work Phone: [facility] Comment on above: Appointment (please make sure she schedules hospital follow up) Start: 03-23-2022 Refill Migdalia gordon MD Work Phone: Internal Medicine Comment on above: Refill Request Start: 03-19-2022 Refill Williedavid Kaur APRN.MEDICAL MANAGEMENT SPECIALIST Work Phone: [facility] Comment on above: Refill Request Start: 02-25-2022 Telephone encounter Migdalia hidalgo MD Work Phone: [facility] Comment on above: Medication Request Start: 12-25-2021 Refill Migdalia gordon MD Work Phone: [facility] Comment on above: Refill Request Start: 07-14-2021 End: 07-14-2021 Subsequent hospital visit by physician [facility] Work Phone: Radiology Comment on above: [...] Comment: Speci men Type: BLOOD SPECIMENOrdering Facility: [facility] Address: [address] [place] [address] Performed By: #### T SCR ####CC MAIN BLOOD BANKCLIA [id number] [place] [address] [place] Start: 2024 Measurement of [...] Author Start: 09-13-2025 Anxiety Screening Anxiety Screening Start: 09-13-2025 Covid-19 Vaccine ( season) Covid-19 Vaccine ( season) Comment on above: Postponed from 07/15/2024 (Declined at t his time) Start: 09-13-2025 Depression Screening Depression Screening Start: 09-13-2025 Diabetic foot examination Diabetic Foot Exam Start: 09-13-2025 RSV Vaccine (1 - 1-dose 75+ series) RSV Vaccine (1 - 1-dose 75+ series) Comment on above: Postponed from 2010 (Declined at t his time) Start: 09-13-2025 Shingrix Vaccine (2 of 3) Shingrix Vaccine (2 of 3) Comment on above: Postponed from 03/19/2015 (Declined at t his time) Start: 09-13-2025 Urine microalbumin profile DTaP,Tdap,Td Vaccine (1 - Tdap) Comment on above: Postponed from 1954 (Declined at t his time) Start: 08-14-2025 Hepatitis B screening Urine Albumin:Creatinine Ratio Start: 07-15-2025 Influenza vaccination Influenza Vaccine (Season Ended) Start: 07-11-2025 Hepatitis B surface antibody level LDL Cholesterol Start: 07-05-2025 End: 07-05-2025 Patient encounter procedure Rheumatology Comment on above: Return in about 6 months (around 07/04/20 25) for Pseudogout 20m. F/u 6 months Start: 05-13-2025 Influenza vaccination Influenza Vaccine (#1) [place] [facility] [place] Comment on above: Postponed from 07/15/2024 (Declined at t his time) Start: 03-21-2025 Glaucoma screening Dilated Retinal Exam Start: 03-12-2025 End: 03-12-2025 Patient encounter procedure 03/12/2025 9:00 AM EDT Office Visit Family Medicine [id number] [place] [address] [place] [address] [place] [phone] 6 month follow up Family Medicine Comment on above: 6 month follow up Start: 02-19-2025 Hemoglobin A1c measurement HbA1C Start: 02-13-2025 End: 05-15-2025 CBC W Auto Differential panel - Blood COMPLETE BLOOD COUNT AND DIFFERENTIAL Lab Routine Normocytic anemia Expected: 02/13/2025, Expires: 05/15/2025 [facility] Work Phone: Comment on above: Expected: 02/13/2025, Expires: Start: 02-13-2025 End: 05-15-2025 Comprehensive metabolic 2000 panel - Serum or Plasma COMPREHENSIVE METABOLIC PANEL Lab Routine Normocytic anemia Expected: 02/13/2025, Expires: 05/15/2025 Comment on above: Expected: 02/13/2025, Expires: Start: 02-13-2025 End: 05-15-2025 Pyridoxine [Mass/volume] in Serum or Plasma VITAMIN B6/PYRIDOXIN Lab Routine Normocytic anemia Vitamin B6 deficiency Expected: 02/13/2025, Expires: 05/15/2025 Comment on above: Expected: 02/13/2025, Expires: Start: 02-13-2025 End: 02-13-2025 Patient encounter procedure 02/13/2025 1:30 PM EDT Office Visit Plastic Surgery [address] [place] [address] Lien Bang, DPM [address], [address] [place] [address] appt confirmed with Nj at [facility] Right ankle-rescheduled with Malia at [facility] 01-28-2025 10:22am-KT Plastic Surgery Comment on above: appt confirmed with Nj at [facility] ristioan orting Right ankle-rescheduled with Malia at [facility] 01-28-2025 10:22am-KT Start: 02-11-2025 End: 09-13-2025 Basic metabolic 2000 panel - Serum or Plasma BASIC METABOLIC PANEL Lab Routine Essential hypertension Hypertensive kidney disease with stage 3b chronic kidney disease (HCC) CKD stage 3 due to type 2 diabetes mellitus (HCC) Diabetes mellitus, non-insulin dependent (NIDDM or type II) (HCC) Expected: 02/11/2025, Expires: 09/13/2025 [facility] Work Phone: Comment on above: Expected: 02/11/2025, Expires: Start: 02-11-2025 End: 05-13-2025 CBC panel - Blood by Automated count COMPLETE BLOOD COUNT Lab Routine Iron deficiency anemia, unspecified iron deficiency anemia type Leukocytosis, unspecified type Expected: 02/11/2025, Expires: 05/13/2025 Comment on above: Expected: 02/11/2025, Expires: Start: 02-11-2025 End: 09-13-2025 Hemoglobin A1c in Blood HEMOGLOBIN A1C Lab Routine Diabetes mellitus, non-insulin dependent (NIDDM or type II) (HCC) Expected: 02/11/2025, Expires: 09/13/2025 Comment on above: Expected: 02/11/2025, Expires: Start: 02-11-2025 End: 09-13-2025 LIPID PANEL, NONFASTING LIPID PANEL, NONFASTING Lab Routine Hyperlipidemia associated with type 2 diabetes mellitus (HCC) (HCC) Diabetes mellitus, non-insulin dependent (NIDDM or type II) (HCC) Expected: 02/11/2025, Expires: 09/13/2025 Comment on above: Expected: 02/11/2025, Expires: Start: 01-30-2025 End: 01-30-2025 Patient encounter procedure 01/30/2025 1:30 PM EDT Office Visit Plastic Surgery [address] [place] [address] Lien Bang DPM [address], [address] [place] [address] [phone] Right ankle Plastic Surgery Comment on above: Right ankle Start: 01-16-2025 End: 01-16-2025 Patient encounter procedure 01/16/2025 1:00 PM EST Office Visit Plastic Surgery [address] [place] [address] Lien Bang DPM [address], [address] [place] [address] [phone] Right ankle Plastic Surgery Comment on above: Right ankle Start: 01-08-2025 End: 01-08-2025 Patient encounter procedure Plastic Surgery Comment on above: new to us f/u abx from hospital visit mark carranza from [facility] [phone] f/u abx from hospita l visit patient from [facility] [phone] confirmed with Nj at [facility] 01/04/2021 f/u abx from hospital visit patient from [facility] [phone] Start: 01-04-2025 End: 01-04-2025 Patient encounter procedure 01/04/2025 8:00 AM EST Office Visit Rheumatology [address] [facility] [place], [place] [id number] Tyesha Singleton MD [address] [place] [address] [address] mcghee Rheumatology Comment on above: Inflammatory Arthritis per dr mcghee Start: 01-02-2025 End: 01-02-2025 Follow-up encounter 01/02/2025 8:30 AM EST Visit (SP) Office Hematology/Oncology [address] [place] [address] [place] [address] [place] [address] Follow up Hematology/Oncology Comment on above: Follow up Start: 12-26-2024 End: 12-26-2024 Patient encounter procedure 12/26/2024 1:00 PM EST Office Visit Plastic Surgery [address] [place] [address] Lien Bang DPM [address] [facility], [address] [place] [id number] new to us right ankle -f/u from [...] - 11/27/2024 3:53 PM EST Surgery [facility] Surgery [address] [place] [address] Keerthi Plata, ANIRUDH [address] [facility], [address] [place] [address] INCISION AND DRAINAGE ABSCESS EXTREMITY LOWER SIMPLE OR SINGLE [facility] Surgery Comment on above: INCISION AND [...] 9:10 AM EST Visit (SP) Office Hematology/Oncology [address] [place] [address] [place] [address] [place] [address] folow up Iron Hematology/Oncology Comment on above: folow up Iron Start: 11-21-2024 End: 02-20-2025 CBC W Auto Differential panel - Blood COMPLETE BLOOD COUNT AND DIFFERENTIAL Lab Routine Normocytic anemia Leukocytosis, unspecified type Expected: 11/21/2024, Expires: 02/20/2025 [facility] Work Phone: Comment on above: Expected: 11/21/2024, Expires: Start: 11-21-2024 End: 02-20-2025 Ferritin [Mass/volume] in Serum or Plasma FERRITIN Lab Routine Normocytic anemia Expected: 11/21/2024, Expires: 02/20/2025 Comment on above: Expected: 11/21/2024, Expires: Start: 11-21-2024 End: 02-20-2025 Iron and Iron binding capacity panel - Serum or Plasma IRON AND TIBC Lab Routine Normocytic anemia Expected: 11/21/2024, Expires: 02/20/2025 Comment on above: Expected: 11/21/2024, Expires: Start: 11-21-2024 End: 02-20-2025 Zinc [Mass/volume] in Serum or Plasma ZINC BLD Lab Routine Normocytic anemia Expected: 11/21/2024, Expires: 02/20/2025 Comment on above: Expected: 11/21/2024, Expires: Start: 11-21-2024 End: 11-21-2024 ambulatory 11/21/2024 9:15 AM EST Results Only [facility] [address] [place] [address] lab [facility] Comment on above: lab Start: 11-19-2024 End: 11-19-2024 Patient encounter procedure 11/19/2024 9:30 AM EST Appointment MRI [facility] [address] [place] [address] Chronic pain of right ankle [M25.571, G89.29] MRI [facility] Comment on above: Chronic pain of right ankle [M25.571, G8 9.29] Start: 11-14-2024 Advance Directive Discussion Advance Directive Discussion Start: 11-14-2024 Hemoglobin A1c measurement HbA1C Start: 11-14-2024 Medicare Advantage Annual Wellness Visit Medicare Advantage Annual Wellness Visit Start: 11-01-2024 End: 01-31-2025 C reactive protein [Mass/volume] in Serum or Plasma Comment on above: Expected: 11/01/2024, Expires: Start: 11-01-2024 End: 01-31-2025 Erythrocyte sedimentation rate Comment on above: Expected: 11/01/2024, Expires: Start: 10-11-2024 Hemoglobin A1c measurement HbA1C Start: 09-20-2024 End: 09-20-2024 Patient encounter procedure 09/20/2024 9:10 AM EST Office Visit Orthopaedic Surgery [facility] [address] [place] [address] Simone Kevin MD [address] [place] [address] Right ankle swelling [M25.471]; Closed nondisplaced fracture of right calcaneus, unspecified portion of calcaneus, initial encounter [S92.001A] Orthopaedic Surgery [facility] Comment on above: Right ankle swelling [M25.471]; Closed n ondisplaced fracture of right calcaneus, unspecified portion of calcaneus, initial encounter [S92.001A] Start: 09-18-2024 End: 09-18-2024 Patient encounter procedure 09/18/2024 8:15 AM EST Appointment Radiology [address] [place] [address] Right ankle swelling [M25.471] Radiology Comment on above: Right ankle swelling [M25.471] Start: 09-17-2024 End: 09-17-2024 FQHC visit new patient 09/17/2024 3:10 PM EST Visit (SP) Office Hematology/Oncology [address] [place] [address] [place] [address] [place] [address] New patient Hematology/Oncology Comment on above: New patient Start: 09-17-2024 End: 12-17-2024 Pyridoxine [Mass/volume] in Serum or Plasma [facility] Work Phone: Comment on above: Expected: 09/17/2024, Expires: Start: 09-13-2024 End: 09-13-2024 Patient encounter procedure 09/13/2024 10:00 AM EDT Office Visit Family Medicine [address] [place], [place] [id number] Migdalia Cramer MD [address] [place] [address] AWV Due Family Medicine Comment on above: AWV Due Start: 09-11-2024 End: 12-11-2024 Basic metabolic 2000 panel - Serum or Plasma BASIC METABOLIC PANEL Lab Routine CKD stage 3 due to type 2 diabetes mellitus (HCC) Hypertensive kidney disease with stage 3b chronic kidney disease (HCC) Essential hypertension Diabetes mellitus, non-insulin dependent (NIDDM or type II) (HCC) Expected: 09/11/2024, Expires: 12/11/2024 [facility] Work Phone: Comment on above: Expected: 09/11/2024, Expires: Start: 09-11-2024 End: 12-11-2024 CBC panel - Blood by Automated count COMPLETE BLOOD COUNT Lab Routine Iron deficiency anemia, unspecified iron deficiency anemia type Expected: 09/11/2024, Expires: 12/11/2024 Comment on above: Expected: 09/11/2024, Expires: Start: 09-11-2024 End: 12-11-2024 Hemoglobin A1c in Blood HEMOGLOBIN A1C Lab Routine Diabetes mellitus, non-insulin dependent (NIDDM or type II) (HCC) Expected: 09/11/2024, Expires: 12/11/2024 Comment on above: Expected: 09/11/2024, Expires: Start: 09-11-2024 End: 12-11-2024 Microalbumin/Creatinine [Mass Ratio] in Urine ALBUMIN/CREATININE RATIO, URINE Lab Routine CKD stage 3 due to type 2 diabetes mellitus (HCC) Essential hypertension Diabetes mellitus, non-insulin dependent (NIDDM or type II) (HCC) Expected: 09/11/2024, Expires: 12/11/2024 Comment on above: Expected: 09/11/2024, Expires: Start: [...] deficiency anemia type Expected: 09/11/2024, Expires: 12/11/2024 Comment on above: Expected: 09/11/2024, Expires: Start: 08-14-2024 End: 11-13-2024 Bacteria identified in Urine by Culture Comment on above: Expected: 08/14/2024, Expires: Start: 08-14-2024 End: 11-13-2024 C reactive protein [Mass/volume] in Serum or Plasma Comment on above: Expected: 08/14/2024, Expires: Start: 08-14-2024 End: 11-13-2024 CBC W Ordered Manual Differential panel - Blood Comment on above: Expected: 08/14/2024, Expires: Start: 08-14-2024 End: 11-13-2024 Erythrocyte sedimentation rate [facility] Work Phone: Comment on above: Expected: 08/14/2024, Expires: Start: 08-14-2024 End: 11-13-2024 [facility] Comment on above: Expected: 08/14/2024, Expires: Start: 08-14-2024 End: 11-13-2024 PROTEIN ELECTROPHORESIS SERUM W/[facility] Comment on above: Expected: 08/14/2024, Expires: Start: 08-14-2024 End: 11-13-2024 URINALYSIS, DIPSTICK ONLY Comment on above: Expected: 08/14/2024, Expires: Start: 08-14-2024 End: 08-14-2024 Patient encounter procedure 08/14/2024 10:40 AM EDT Office Visit Family Medicine [address] [place], [place] [id number] [place]ramer [place] [id number] [place], [place] [id number] Elevated white count and dehydration/fatigue Family Medicine Comment on above: Elevated white count and dehydration/fat igue Start: 07-15-2024 Covid-19 Vaccine ( season) Covid-19 Vaccine () Start: 07-15-2024 Covid-19 Vaccine ( season) Covid-19 Vaccine ( season) Start: 07-15-2024 Influenza vaccination Start: 07-12-2024 End: 07-12-2024 Patient encounter procedure 07/12/2024 9:40 AM EDT Office Visit Family Medicine [address] [place] [address] [place] [address] [place] [address] Follow Up Family Medicine Comment on above: Follow Up Start: 04-12-2024 End: 04-12-2024 Patient encounter procedure 04/12/2024 11:30 AM EDT Office Visit Rheumatology [address] [place] [id number] [place] [address] [place] [phone] HFU pseudogout Rheumatology Comment on above: HFU pseudogout Start: 03-21-2024 End: 03-21-2024 Patient encounter procedure 03/21/2024 10:45 AM EDT Office Visit OPHT Ophthalmology [id number] [place], [place] [id number] Gertrudis Bill, DO [address] [place] [address] Dilated Retinal Exam Ophthalmology Comment on above: Dilated Retinal Exam Start: 03-13-2024 End: 09-13-2024 Basic metabolic 2000 panel - Serum or Plasma BASIC METABOLIC PANEL Lab Routine Diabetes mellitus, non-insulin dependent (NIDDM or type II) (HCC) Hyperlipidemia associated with type 2 diabetes mellitus (HCC) (HCC) Essential hypertension Expected: 03/13/2024, Expires: 09/13/2024 Comment on above: Expected: 03/13/2024, Expires: 4 Start: 03-13-2024 End: 09-13-2024 Hemoglobin A1c in Blood HEMOGLOBIN A1C Lab Routine Diabetes mellitus, non-insulin dependent (NIDDM or type II) (HCC) Expected: 03/13/2024, Expires: 09/13/2024 [facility] Work Phone: Comment on above: Expected: 03/13/2024, Expires: 4 Start: 03-13-2024 End: 09-13-2024 LIPID PANEL, NONFASTING LIPID PANEL, NONFASTING Lab Routine Hyperlipidemia associated with type 2 diabetes mellitus (HCC) (HCC) Expected: 03/13/2024, Expires: 09/13/2024 Comment on above: Expected: 03/13/2024, Expires: Start: 03-13-2024 End: 09-13-2024 Microalbumin/Creatinine [Mass Ratio] in Urine ALBUMIN/CREATININE RATIO, URINE Lab Routine Diabetes mellitus, non-insulin dependent (NIDDM or type II) (HCC) Expected: 03/13/2024, Expires: 09/13/2024 Comment on above: Expected: 03/13/2024, Expires: Start: 11-14-2023 Advance Directive Discussion Advance Directive Discussion Start: 11-14-2023 Behavioral Health Screening Behavioral Health Screening Start: 11-14-2023 Depression Assessment Depression Assessment Start: 11-12-2023 Hemoglobin A1c measurement HbA1C Start: 11-12-2023 Hemoglobin A1c/Hemoglobin.total in Blood HBA1C Start: 10-23-2023 3 comp foot exam completed DIABETIC FOOT EXAM Start: 10-23-2023 Diabetic foot examination Diabetic Foot Exam Start: 10-21-2023 Hepatitis B screening URINE ALBUMIN:CREATININE RATIO Start: 10-21-2023 Hepatitis B surface antibody level LDL CHOLESTEROL Start: 09-07-2023 Hemoglobin A1c/Hemoglobin.total in Blood HBA1C Start: 07-15-2023 Covid-19 Vaccine ( season) Covid-19 Vaccine ( season) Start: 07-15-2023 Influenza vaccination Start: 06-17-2023 End: 08-17-2023 Basic metabolic 2000 panel - Serum or Plasma BASIC METABOLIC PNL Lab Routine Type 2 diabetes mellitus with stage 3 chronic kidney disease, without long-term current use of insulin, unspecified whether stage 3a or 3b CKD (HCC) Expected: 06/17/2023 (Approximate), Expires: 08/17/2023 [facility] Work Phone: Comment on above: Expected: 06/17/2023 (Approximate), Expi res: 08/17/2023 Start: 06-17-2023 End: 08-17-2023 Hemoglobin A1c in Blood HGB A1C Lab Routine Type 2 diabetes mellitus with stage 3 chronic kidney disease, without long-term current use of insulin, unspecified whether stage 3a or 3b CKD (HCC) Expected: 06/17/2023 (Approximate), Expires: 08/17/2023 [facility] Work Phone: Comment on above: Expected: 06/17/2023 (Approximate), Expi res: 08/17/2023 Start: 04-29-2023 End: 06-29-2023 Basic metabolic 2000 panel - Serum or Plasma BASIC METABOLIC PNL Lab Routine CKD stage 3 due to type 2 diabetes mellitus (HCC) Diabetes mellitus, non-insulin dependent (NIDDM or type II) (HCC) Expected: 04/29/2023 (Approximate), Expires: 06/29/2023 [facility] Work Phone: Comment on above: Expected: 04/29/2023 (Approximate), Expi res: 06/29/2023 Start: 04-21-2023 Hemoglobin A1c/Hemoglobin.total in Blood HBA1C Start: 03-23-2023 End: 05-23-2023 Basic metabolic 2000 panel - Serum or Plasma BASIC METABOLIC PNL Lab Routine Diabetes mellitus, non-insulin dependent (NIDDM or type II) (HCC) Expected: 03/23/2023, Expires: 05/23/2023 [facility] Work Phone: Comment on above: Expected: 03/23/2023, Expires: 3 Start: 03-23-2023 End: 05-23-2023 Hemoglobin A1c in Blood HGB A1C Lab Routine Diabetes mellitus, non-insulin dependent (NIDDM or type II) (HCC) Expected: 03/23/2023, Expires: 05/23/2023 [facility] Work Phone: Comment on above: Expected: 03/23/2023, Expires: 3 Start: 03-23-2023 End: 05-23-2023 SCHEDULE LAB TESTING SCHEDULE LAB TESTING Lab Routine Diabetes mellitus, non-insulin dependent (NIDDM or type II) (HCC) Expected: 03/23/2023, Expires: 05/23/2023 [facility] Work Phone: Comment on above: Expected: 03/23/2023, Expires: 3 Start: 11-14-2022 ADVANCE DIRECTIVE DISCUSSION ADVANCE DIRECTIVE DISCUSSION Start: 11-14-2022 DEPRESSION ASSESSMENT DEPRESSION ASSESSMENT Start: 10-27-2022 Hemoglobin A1c/Hemoglobin.total in Blood HBA1C Start: 10-15-2022 3 comp foot exam completed DIABETIC FOOT EXAM Start: 10-15-2022 SHINGRIX VACCINE (2 of 3) SHINGRIX VACCINE (2 of 3) Comment on above: Postponed from 03/19/2015 (Declined at t his time) Start: 10-15-2022 Urine microalbumin profile DTAP,TDAP,TD (1 - Tdap) Comment on above: Postponed from 1954 (Declined at t his time) Start: 10-12-2022 Hepatitis B screening URINE ALBUMIN:CREATININE RATIO Start: 10-12-2022 Hepatitis B surface antibody level LDL CHOLESTEROL Start: 10-08-2022 End: 12-08-2022 ALBUMIN/CREAT RATIO RND UR ALBUMIN/CREAT RATIO RND UR Lab Routine Diabetes mellitus, non-insulin dependent (NIDDM or type II) (HCC) Hypertensive kidney disease with stage 3b chronic kidney disease (HCC) Expected: 10/08/2022, Expires: 12/08/2022 [facility] Work Phone: Comment on above: Expected: 10/08/2022, Expires: 3 Start: 10-08-2022 End: 12-08-2022 Basic metabolic 2000 panel - Serum or Plasma BASIC METABOLIC PNL Lab Routine Diabetes mellitus, non-insulin dependent (NIDDM or type II) (HCC) CKD stage 3 due to type 2 diabetes mellitus (HCC) Essential hypertension Hypertensive kidney disease with stage 3b chronic kidney disease (HCC) Expected: 10/08/2022, Expires: 12/08/2022 [facility] Work Phone: Comment on above: Expected: 10/08/2022, Expires: 3 Start: 10-08-2022 End: 12-08-2022 Hemoglobin A1c in Blood HGB A1C Lab Routine Diabetes mellitus, non-insulin dependent (NIDDM or type II) (HCC) Expected: 10/08/2022, Expires: 12/08/2022 [facility] Work Phone: Comment on above: Expected: 10/08/2022, Expires: 3 Start: 10-08-2022 End: 12-08-2022 LIPID PANEL, NONFASTING LIPID PANEL, NONFASTING Lab Routine Diabetes mellitus, non-insulin dependent (NIDDM or type II) (HCC) Hyperlipidemia associated with type 2 diabetes mellitus (HCC) Expected: 10/08/2022, Expires: 12/08/2022 [facility] Work Phone: Comment on above: Expected: 10/08/2022, Expires: 3 Start: 09-24-2022 Hemoglobin A1c/Hemoglobin.total in Blood HBA1C Start: 07-26-2022 End: 09-25-2022 CBC panel - Blood by Automated count CBC Lab Routine Iron deficiency anemia, unspecified iron deficiency anemia type CKD stage 3 due to type 2 diabetes mellitus (HCC) Expected: 07/26/2022, Expires: 09/25/2022 [facility] Work Phone: Comment on above: Expected: 07/26/2022, Expires: 2 Start: 07-26-2022 End: 09-25-2022 Ferritin [Mass/volume] in Serum or Plasma FERRITIN BLD Lab Routine Iron deficiency anemia, unspecified iron deficiency anemia type Expected: 07/26/2022, Expires: 09/25/2022 [facility] Work Phone: Comment on above: Expected: 07/26/2022, Expires: 2 Start: 07-26-2022 End: 09-25-2022 Iron and Iron binding capacity panel - Serum or Plasma IRON + TIBC Lab Routine Iron deficiency anemia, unspecified iron deficiency anemia type Expected: 07/26/2022, Expires: 09/25/2022 [facility] Work Phone: Comment on above: Expected: 07/26/2022, Expires: 2 Start: 07-15-2022 Influenza vaccination Start: 04-26-2022 End: 06-26-2022 CBC panel - Blood by Automated count CBC Lab Routine Iron deficiency anemia, unspecified iron deficiency anemia type Expected: 04/26/2022, Expires: 06/26/2022 [facility] Work Phone: Comment on above: Expected: 04/26/2022, Expires: 2 Start: 04-26-2022 End: 06-26-2022 RETIC COUNT RETIC COUNT Lab Routine Iron deficiency anemia, unspecified iron deficiency anemia type Expected: 04/26/2022, Expires: 06/26/2022 [facility] Work Phone: Comment on above: Expected: 04/26/2022, Expires: 2 Start: 04-12-2022 End: 06-12-2022 Bacteria identified in Urine by Culture URINE CULTURE Microbiology Routine Acute cystitis without hematuria Expected: 04/12/2022, Expires: 06/12/2022 [facility] Work Phone: Comment on above: Expected: 04/12/2022, Expires: 2 Start: 04-12-2022 End: 06-12-2022 URINALYSIS, DIPSTICK ONLY URINALYSIS, DIPSTICK ONLY Lab Routine Acute cystitis without hematuria Expected: 04/12/2022, Expires: 06/12/2022 [facility] Work Phone: Comment on above: Expected: 04/12/2022, Expires: 2 Start: 04-11-2022 Hemoglobin A1c/Hemoglobin.total in Blood HBA1C Start: 11-14-2021 ADVANCE DIRECTIVE DISCUSSION ADVANCE DIRECTIVE DISCUSSION Start: 11-14-2021 DEPRESSION ASSESSMENT DEPRESSION ASSESSMENT Start: 12-07-2018 Glaucoma screening Dilated Retinal Exam Start: 12-07-2018 Hepatitis C antibody, confirmatory test DILATED RETINAL EXAM Start: 10-22-2016 PNEUMOCOCCAL: 65+ (2 - PPSV23 or PCV20) PNEUMOCOCCAL: 65+ (2 - PPSV23 or PCV20) Start: 03-19-2015 SHINGRIX VACCINE (2 of 3) SHINGRIX VACCINE (2 of 3) Start: 06-14-2013 Colonoscopy COLONOSCOPY Start: 06-14-2013 Screening for malignant neoplasm of colon Colonoscopy Start: 06-15-2012 COLORECTAL CANCER SCREENING COLORECTAL CANCER SCREENING Start: 06-15-2012 Screening for malignant neoplasm of colon Colorectal Cancer Screening Start: 2010 RSV Vaccine (1 - 1-dose 75+ series) RSV Vaccine (1 - 1-dose 75+ series) Start: 1995 Hepatitis B Vaccine (1 of 3 - Risk 3-dose series) Hepatitis B Vaccine (1 of 3 - Risk 3-dose series) Start: 1995 RSV Vaccine (1 - 1-dose 60+ series) RSV Vaccine (1 - 1-dose 60+ series) Start: 1980 COLOGUARD (FIT-DNA) COLOGUARD (FIT-DNA) Start: [address] COLONOGRAPHY Start: 1980 FECAL OCCULT BLOOD FECAL OCCULT BLOOD Start: 1980 Screening for malignant neoplasm of colon Start: 1980 SIGMOIDOSCOPY SIGMOIDOSCOPY Start: 1954 Urine microalbumin profile Start: 1953 Anxiety Screening Anxiety Screening Start: 1953 Depression Screening Depression Screening Start: 1940 COVID-19 VACCINE (#1) COVID-19 VACCINE (#1) Start: 1940 COVID-19 VACCINE (1) COVID-19 VACCINE (1) Start: 06-30-1936 COVID-19 VACCINE (#1) COVID-19 VACCINE (#1) COLOGUARD COLOGUARD Lab Ro utine Screening for colon cancer Ordered: 04/08/2022 [facility] Work Phone: Comment on above: Ordered: 04/08/2022 End: 12-01-2025 MR Ankle - right WO contrast MRI ANKLE WO IVCON RIGHT Radiology Routine Chronic pain of right ankle 1 Occurrences starting 11/01/2024 until 12/01/2025 Comment on above: 1 Occurrences starting 11/01/2024 until 12/01/2025 End: 09-17-2024 XR Ankle - right AP and Lateral and oblique [facility] Work Phone: Comment on above: 1 Occurrences starting 09/17/2024 until 09/17/2024 End: 12-01-2025 XR Ankle - right AP and Lateral and oblique XR ANKLE GENERAL 3V AP/LAT/OBL RIGHT Radiology Routine Right ankle swelling 1 Occurrences starting 11/01/2024 until 12/01/2025 [facility] Work Phone: Comment on above: 1 Occurrences starting 11/01/2024 until 12/01/2025 XR Ankle - right AP and Lateral and oblique XR ANKLE GENERAL 3V AP/LAT/OBL RIGHT Radiology Routine Right ankle swelling 11/01/2024 2:21 PM [facility] XR Calcaneus - right 2 Views XR CALCANEUS 2V AXIAL/LAT RIGHT Radiology Routine Pain in joint involving right ankle and foot 09/19/2024 2:13 PM [facility] XR Foot - right AP a nd Lateral and oblique XR FOOT GENERAL 3V AP/LAT/OBL RIGHT Radiology Routine Pain in joint involving right ankle and foot 09/19/2024 2:13 PM EST [facility] Work Phone: End: 12-01-2025 XR Foot - right AP and Lateral and oblique XR FOOT GENERAL 3V AP/LAT/OBL RIGHT Radiology Routine Right ankle swelling 1 Occurrences starting 11/01/2024 until 12/01/2025 Comment on above: 1 Occurrences starting 11/01/2024 until 12/01/2025 XR Foot - right AP a nd Lateral and oblique XR FOOT GENERAL 3V AP/LAT/OBL RIGHT Radiology Routine Right ankle swelling 11/01/2024 2:21 PM EST [facility] Immunizations Immunization Date Immunization Notes Care Provider Shaun peterson 12-07-2017 influenza virus vacc ine, unspecified formulation Migdalia Cramer MD Work Phone: 12-01-2016 influenza, high dose seasonal, preservative-free Migdalia Cramer MD Work Phone: 10-22-2015 pneumococcal conjuga te vaccine, 13 valent Migdalia Cramer MD Work Phone: Work Phone: 08-15-2015 influenza, high dose seasonal, preservative-free Migdalia Cramer MD Work Phone: 01-22-2015 zoster vaccine, live Migdalia alfonso MD Work Phone: 09-18-2014 influenza, seasonal, injectable Migdalia Cramer MD Work Phone: Work Phone: 09-04-2013 influenza virus vacc ine, unspecified formulation Migdalia Cramer MD Work Phone: 08-23-2012 influenza virus vacc ine, unspecified formulation Migdalia Cramer MD Work Phone: Work Phone: 11-22-2011 pneumococcal polysaccharide vaccine, 23 valent Migdalia Cramer MD Work Phone: 09-15-2011 influenza virus vacc ine, unspecified formulation Migdalia Cramer MD Work Phone: 09-03-2010 influenza virus vacc ine, unspecified formulation Migdalia Cramer MD Work Phone: Payers Date Payer Category Payer Self-pay 2020 Medicare [facility] PPO [id number] 2020-[facility] [phone] [address] [address] [place] [address] PPO [id number] 2020 Medicare [facility] PPO [id number] 2020-Present [phone] [address] [address] [place] [address] PPO [id number] 2020 Medicare (Managed Care) [facility] PPO [id number] 2020 Medicare [id number] Unknown [id number] Unknown [id number] Unknown [id number] Unknown [id number] Unknown [id number] Unknown [id number] Unknown [id number] Unknown [id number] Social History Date Type Detail Facility Start: 09-16-2011 End: 10-23-2022 Tobacco smoking status NHIS Never smoked tobacco Start: 10-15-2021 End: 02-13-2025 Alcohol intake Current non-drinker of alcohol (finding) Start: 09-10-2020 End: 03-08-2023 History SDOH Alcohol Frequency 1 Start: 09-10-2020 End: 09-16-2020 History SDOH Social Connections Phone 5 Start: 09-10-2020 End: 09-16-2020 History SDOH Social Connections Get Together 2 Start: 09-10-2020 History SDOH Social Connections Roman Catholic 3 Start: 09-10-2020 History SDOH Social Connections Living 4 Start: 1935 Sex Assigned At Not on file [facility] Start: 11-09-2021 End: 12-09-2021 Exposure to SARS-CoV-2 (event) Unable to assess Start: 06-14-2021 End: 05-08-2022 Exposure to SARS-CoV-2 (event) Not sure Start: 09-16-2011 End: 10-23-2022 Tobacco use and exposure Smokeless tobacco non-user Start: 09-09-2020 End: 03-17-2023 History of Social function [facility] Start: 09-09-2020 End: 03-17-2023 Social connection and isolation panel Do you belong to any clubs or organizations such as temple groups, unions, fraternal or athletic groups, or school groups? Yes Are you now , , , , never or living with a partner? How often to you hav e a drink containing alcohol? Never Average Number of Drinks Not on file [facility] Work Phone: Do you feel stress - tense, restless, nervous, or anxious, or unable to sleep at night because your mind is troubled all the time - these days [OSQ] Only a little (I/We) worried whelowell er (my/our) food would run out before (I/we) got money to buy more. Never true Work Phone: In the past 12 month s, was there a time when you were not able to pay the mortgage or rent on time? No [facility] Work Phone: Start: 02-14-2025 End: 02-21-2025 Sex Female (finding) [facility] Start: 1935 Sex Assigned At Female [facility] Medical Equipment Procedure Code Equipment Code Equipment Origin al Text Equipment Identifier Dates [id number], [id number], [id number] Start: 2019 End: 08-21-2024 Comment on above: USE DIRECTED TO T EST BLOOD SUGARS 3 TIMES A DAY Test blood sugar onc e daily Functional Status Date Assessment Result Facility 12-12-2024 Are you deaf, or do you have serious difficulty hearing No 12/12/2024 1:12 PM Petrona Arreguin RN No 12-12-2024 Are you blind, or do you have serious difficulty seeing, even when wearing glasses No 12/12/2024 1:12 PM Petrona Arreguin RN No 12-12-2024 Do you have serious difficulty walking or climbing stairs No 12/12/2024 1:12 PM Petrona Arreguin RN No 12-12-2024 Do you have difficul ty dressing or bathing No 12/12/2024 1:12 PM Petrona Arreguin RN No 12-12-2024 Because of a physica l, mental, or emotional condition, do you have difficulty doing errands alone such as visiting a physician's office or shopping No 12/12/2024 1:12 PM Petrona Arreguin RN No 03-09-2023 Are you deaf, or do you have serious difficulty hearing Yes 03/09/2023 4:15 PM Shannon Kraus, LIT Yes 03-09-2023 Are you blind, or do you have serious difficulty seeing, even when wearing glasses No 03/09/2023 4:15 PM EDT Shannon Stringer RN No 03-09-2023 Do you have serious difficulty walking or climbing stairs Yes 03/09/2023 4:15 PM EDT Shannon Stringer, LIT Yes 03-09-2023 Do you have difficul ty dressing or bathing Yes 03/09/2023 4:15 PM EDT Shannon Stringer, LIT Yes 03-09-2023 Because of a physica l, mental, or emotional condition, do you have difficulty doing errands alone such as visiting a physician's office or shopping Yes 03/09/2023 4:15 PM EDT Shannon Stringer RN Yes Mental Status Date Assessment Result Facility 12-12-2024 Because of a physica l, mental, or emotional condition, do you have serious difficulty concentrating, remembering, or making decisions No 12/12/2024 1:12 PM Petrona Arreguin RN No 03-09-2023 Because of a physica l, mental, or emotional condition, do you have serious difficulty concentrating, remembering, or making decisions Yes 03/09/2023 4:15 PM EDT Shannon Stringer RN Yes Clinical Notes 05-25-2017 to 05-01-2025 Telephone Encounter - Ketty Remy LPN - 05/01/2025 4:37 PM EDTTelephone Encounter - Ketty Remy LPN - 05/01/2025 4:37 PM Lien Gilman DPM - 02/14/2025 9:04 AM EDTPatient Instructions Note Date & Type Note Facility 05-01-2025 Telephone encounter Note Received results of labs done on [facility] from 04/29/25 (abnormal results in bold): CRP 21.0 sed rate 32 Report sent for scanning. 05-01-2025 Miscellaneous Notes Received results of labs done on [facility] from 04/29/25 (abnormal results in bold): CRP 21.0 sed rate 32 Report sent for scanning. documented in this encounter 02-14-2025 Note [facility] 02-14-2025 History of Present illness Narrative Date of Visit: 02/13/2025 CHIEF COMPLAINT: Right ankle wound and RT heel pressure check SP OR right ankle incision and drainage and ulcer debridement 11/27/24 DM II, HgbA1c 10.4 (11/21/24) ADM 11/21/24-12/12/24 HISTORY OF PRESENT ILLNESS: Patient presents to the wound center for follow up since admission to [facility] 11/21/24 where she underwent RT [...] warm to warm from proximal to distal Foot Dermatologic Exam: RT ankle lateral ankle [...] pad every other day. She is at [facility] can WB AT BL continue offloading right [...] accompanied by family members Home Care Company/Nursing Facility:[facility] Consent captured for debridement per Lien Bang DPM and alex until July 2025 Anticoagulant Therapy: N/A Living Situation (ie... 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 Bang in 2 weeks - Continue [...] of the right lateral ankle Sign In: 1356 A Moment of CARE was completed. Appropriate PPE (Personal Protective Equipment) worn by all providers involved with the procedure. Special equipment utilized curette . Patient/Surrogate Stated/Verified: Patient name, Date of , Relevant allergies, and The intended procedure Time Out: 7528 Relevant labs, photos, and/or imaging studies have [...] [facility] documented in this encounter 02-13-2025 Instructions Margie Steiner RN - 02/13/2025 1:29 PM EDT WOUND CARE INSTRUCTIONS- Yusuf Medina [facility] - [facility]ound Care Instructions: - Gather [...] for 1 additional month then stop Apply tubi-regional commercial sales manager D to bilateral lower legs Apply a Single layer tubi-regional commercial sales manager compression stocking to the right foot base [...] following changes to the Wound Center at [phone] or go to the Emergency Department: Fever or chills Increased drainage Green or yellow drainage Foul odor Increased pain Hardness around the wound Redness, warmth or swelling of the surrounding tissue Color change to the wound When contacting the wound center at the ([phone]): Leave a message that includes your full [...] emergency department. PLAN/ORDERS: - Return to the [facility] for a follow-up with plan examiner Dr. Bang in 2 weeks - Continue [...] nail care and foot check Lien Bang DPM/osvaldo/patrick documented in this encounter 02-13-2025 Note [facility] 02-11-2025 Telephone encounter Note Received results of labs done on 02/04/2025 from [facility] (abnormal results in bold): sed rate 23 0-30 Report sent for scanning. 02-11-2025 Miscellaneous Notes Received results of labs done on 02/04/2025 from [facility] (abnormal results in bold): sed rate 23 0-30 Report sent for scanning. documented in this encounter 01-18-2025 Telephone encounter Note Noted Willie Kaur APRN.CNP 01-18-2025 Miscellaneous Notes Noted Willie Kaur APRN.CNP Contacted [facility] spoke with Gabbie (nurse), I asked to clarify patient's medication or send updated med list. She states We don't need anything from you She's living here permanently & uses primary care in-house doc. No further information was given or obtained. Chart indicates that she is at [facility], phone number on a fax recently received indicates the SNF is [phone]. Please call the facility that she is at to verify which cholesterol medicine she is taking since caregiver Demetria is not currently in chare of medication administration and can't clarify pravachol vs lipitor. Thank you. Willie Kaur APRN.CNP/ Relative Demetria states the patient is in a fpc now, so she needs someone to reach out to her because she states they are giving her different medications at the fpc. Please reach out to her at [phone] Attempted to contact relative Demetria with no success. Left VM requesting call back. If relative returns call, please clarify prescription. Images from the original note were not included. Pended med is Pravastatin (Pravachol). [facility] med list indicates atorvastatin (Lipitor). Please clarify [...] Jame Hernandez MA documented in this encounter 01-18-2025 Telephone encounter Note Contacted [facility] spoke with Gabbie (nurse), I asked to clarify patient's medication or send updated med list. She states We don't need anything from you She's living here permanently & uses primary care in-house doc. No further information was given or obtained. [facility] 01-18-2025 Telephone encounter Note Chart indicates that she is at [facility], phone number on a fax recently received indicates the SNF is [phone]. Please call the facility that she is at to verify which cholesterol medicine she is taking since caregiver Demetria is not currently in chare of medication administration and can't clarify pravachol vs lipitor. Thank you. Willie Kaur APRN.MEDICAL MANAGEMENT SPECIALIST/ [facility] 01-17-2025 Telephone encounter Note Relative Demetria states the patient is in a fpc now, so she needs someone to reach out to her because she states they are giving her different medications at the fpc. Please reach out to her at [phone] [facility] 01-17-2025 Telephone encounter Note Attempted to contact relative Demetria with no success. Left VM requesting call back. If relative returns call, please clarify prescription. [facility] 01-17-2025 Note [facility] 01-17-2025 History of Present illness Narrative Date of Visit: 01/16/2025 CHIEF COMPLAINT: Right ankle wound and RT heel pressure check SP OR right ankle incision and drainage and ulcer debridement 11/27/24 DM II, HgbA1c 10.4 (11/21/24) ADM 11/21/24-12/12/24 HISTORY OF PRESENT ILLNESS: Patient presents to the wound center for follow up since admission to [facility] 11/21/24 where she underwent RT [...] negative pressure. To continue wound vac at [place]. Removed vac dressing and debrided wound today. [...] tubigrip every other day. She is at [facility] can WB AT continue offloading right [...] accompanied by family members Home Care Company/Nursing Facility:[facility] Consent captured for debridement per Lien Bang DPM and alex until July 2025 Anticoagulant Therapy: N/A Living Situation (ie... Apartment, house, RESIDENTIAL): Facility Who lives with patient: Self Who will be performing wound care: 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 DME: Facility SPECIAL NEEDS: Coordination of care N/A Emotional support N/A OR set-up N/A Assessment Services Manager N/A Incontinence needs N/A DISCHARGED in stable condition to: Arrived via wheelchair accompanied by family & aide PLAN/ORDERS: - Return to the [facility] for a follow-up with plan examiner Dr. Bang in 2 weeks - Follow-up [...] 5-9, consult the Hyperbaric Center Nanette Welch RN/akiko documented in this encounter 01-17-2025 Telephone encounter Note Images from the original note were not included. Pended med is Pravastatin (Pravachol). [facility] med list indicates atorvastatin (Lipitor). Please clarify which patient is taking. Willie Kaur APRN.MEDICAL MANAGEMENT SPECIALIST 01-16-2025 Telephone encounter Note Patient has been [...] Please review and advise. Jame Hernandez MA 01-16-2025 Instructions Nanette Welch RN - 01/16/2025 1:12 PM EST WOUND CARE INSTRUCTIONS- Yusuf Medina Wound location: Right Ankle [facility]: - Please re-apply wound VAC [...] the wound base. - Cover with 4x4 [place] SAP bordered foam or equivalent dressing. - Change your dressing every other day or as needed to maintain a clean, dry and intact dressing. Apply a Single layer tubi-regional commercial sales manager compression stocking to the right foot base [...] following changes to the Wound Center at [phone] or go to the Emergency Department: Fever or chills Increased drainage Green or yellow drainage Foul odor Increased pain Hardness around the wound Redness, warmth or swelling of the surrounding tissue Color change to the wound When contacting the wound center at the ([phone]): Leave a message that includes your full [...] emergency department. PLAN/ORDERS: - Return to the [facility] for a follow-up with plan examiner Dr. aBng in 2 weeks - Follow-up in the [...] Bang DPM /mh/fm documented in this encounter 01-16-2025 Note [facility] 01-08-2025 Telephone encounter Note Per Alon-- Labs rev [place] stop date today PICC removal in the [...] the picc line after the last dose. 01-08-2025 Miscellaneous Notes Per Alon-- Labs rev [place] stop date today PICC removal in the [...] has an appt today with Alon at [facility]. She's currently on Cefazolin 2g iv [...] Spoke to the nurse, Gabbie, naveen requested Dec 3 labs wnl The differential wasn't done on the cbc The EMERGENCY MANAGEMENT CONSULTANT has added it on moving forward The results were attached to the M drive Spoke to the EMERGENCY MANAGEMENT CONSULTANTnaveen requested Lilo from [facility] called [phone] to schedule the follow up, I gave her the [facility] number and 01/08 for the schedule date. Delfina Elias Yusuf is still inpt at [facility] She will be d/c to [facility] [phone] Summary: COPAT ACTION-FOR IDC USE ONLY Images from the original note were not included. 11/28/2024 8:48 PM Pierce Chi NM PROVIDER ADULT [id number] Patient Info Patient Name Sex Yusuf Medina ([id number]) Female 1935 Encounter Notes Progress Notes by Pierce Chi MD, encounter date 11/28/2024: Progress Notes Outpatient Parenteral Antimicrobial Therapy (OPAT) Start Form Patient Info Patient MRN Patient Name Address Date of [id number] Yusuf Medina [address] [facility] [id number] 1935 Start Date 11/28/2024 Physician Group [facility] [...] Monitoring Treatment Course Pierce Chi MD Address [address] [place] [address] Prescribing Provider's signature - electronically signed by Pierce Chi MD on 11/28/24 at 8:50 PM documented in this encounter 01-08-2025 Note [facility] 02-25-2025 History of Present illness Narrative Images from [...] or type II) CATIE PLAN: Labs rev [place] stop date today PICC removal in the [...] accompanied by family members Home Care Company/Nursing Facility:[facility] Consent captured for debridement per Lien Bang DPM and good until December 2024 Anticoagulant Therapy: N/A Living Situation (ie... 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 Bang on January 16 at 1:00 [...] - Please follow-up with your PCP or ship's pilot about your elevated blood pressure readings. - [...] Cinthia Dao RN/TC documented in this encounter 01-08-2025 Instructions Cinthia Dao RN - 01/08/2025 12:51 PM EST WOUND CARE INSTRUCTIONS- Yusuf Medina Wound location: Right Ankle [facility] HOME: - Please re-apply wound VAC today [...] following changes to the Wound Center at [phone] or go to the Emergency Department: Fever or chills Increased drainage Green or yellow drainage Foul odor Increased pain Hardness around the wound Redness, warmth or swelling of the surrounding tissue Color change to the wound When contacting the wound center at the ([phone]): Leave a message that includes your full [...] emergency department. PLAN/ORDERS: - Return to the [facility] for a follow-up with plan examiner Dr. Bang on January 16 at 1:00 [...] - Please follow-up with your PCP or ship's pilot about your elevated blood pressure readings. - If you have any questions or concerns that cannot be answered with the following information, please follow the instructions listed above on how to contact the wound center. Pierce Chi MD/ALANA/JOHN documented in this encounter 01-08-2025 Note [facility] 01-08-2025 Telephone encounter Note Yusuf has an appt today with Alon at [facility]. She's currently on Cefazolin 2g iv q8 with a stop date for today. 01-07-2025 Telephone encounter Note Jan 07 labs reviewed, no changes The creat was never done The results were attached to the M drive 01-04-2025 Telephone encounter Note Received record release from [facility]. Faxed to number provided on form, confirmation fax received. 01-04-2025 Miscellaneous Notes Received record release from [facility]. Faxed to number provided on form, confirmation fax received. The initial note indicates that a pharmaceutical specialty representative is calling and gave return phone number [phone]. I called this number and phone rang and rang numerous times. No voice mail. I can print of POA, stamp and fax since this is a facility to facility request. Given to nursing. If the pharmaceutical specialty representative needs anything else and calls back, Please ask for name and direct line so that return call can be made. Thank you. Willie Kaur APRN.DRAKE Spoke with a physician office secretary at [facility], he took the info again to get us a signed records release faxed to the office. Please watch for fax Please advise [facility] that if patient signs record release, they can get any records they need from [facility] medical records. Or family can sign record request at fpc and fpc can fax Family Medicine the records request and I can send what I can. Our fax is [phone]. Willie Kaur APRN.MEDICAL MANAGEMENT SPECIALIST Records release was not signed. Please review and advice. Received call from [facility]. The pharmaceutical specialty representative has appointment with patient's sons this afternoon at 2 pm and is requesting Advanced Directive/POA paperwork that was scanned in on 2/17. Advised to send records request, but she is concerned about not having this paperwork by 2 pm meeting. Student Counselor can be reached at [phone]. Fax number given for records request as well. documented in this encounter 01-04-2025 Telephone encounter Note The initial note indicates that a pharmaceutical specialty representative is calling and gave return phone number [phone]. I called this number and phone rang and rang numerous times. No voice mail. I can print of POA, stamp and fax since this is a facility to facility request. Given to nursing. If the pharmaceutical specialty representative needs anything else and calls back, Please ask for name and direct line so that return call can be made. Thank you. Willie Kaur APRN.MEDICAL MANAGEMENT SPECIALIST 01-04-2025 Telephone encounter Note Spoke with a physician office secretary at [facility], he took the info again to get us a signed records release faxed to the office. Please watch for fax 01-04-2025 Telephone encounter Note Please advise [facility] that if patient signs record release, they can get any records they need from [facility] medical records. Or family can sign record request at fpc and fpc can fax Family Medicine the records request and I can send what I can. Our fax is [phone]. Willie Kaur APRN.DRAKE 01-04-2025 Note HNO ID: [id number] Author: TYESHA SINGLETON MD Service: ? Author [...] with dramatic improvement Currently she is in [place] and here with AVELINA and nurse aid who gives the history Currently she is pain free Also spoke with her nurse at [place] who states patient does nto complain of pain, pretty sedentary. No specific complaints at [place] per nurse Currently doing well, no pain at present Family states after debridement of rt ankle- patient feels weak and does not want to walk around Was living alone until 2 months ago and now at [place]. Prior to debridement , patient was not [...] L REMV CATARACT EXTRACAP,INSERT LENS Bilateral 2020 [facility] predniSONE (DELTASONE) 5 mg tablet Take 5 [...] Sister None B (more content not included)... [facility] 01-04-2025 History of Present illness Narrative Yusuf [...] with dramatic improvement Currently she is in [place] and here with AVELINA and nurse aid who gives the history Currently she is pain free Also spoke with her nurse at [place] who states patient does nto complain of pain, pretty sedentary. No specific complaints at [place] per nurse Currently doing well, no pain at present Family states after debridement of rt ankle- patient feels weak and does not want to walk around Was living alone until 2 months ago and now at [place]. Prior to debridement , patient was not [...] L REMV CATARACT EXTRACAP,INSERT LENS Bilateral 2020 [facility] predniSONE (DELTASONE) 5 mg tablet Take 5 [...] every day prn -written instructions given to [place] as well as verbal instructions to family and nurse who is taking care of her at [place] 2. Rt ankle cellulitis and osteomyelitis -currently [...] Swollen Glands: No documented in this encounter 01-03-2025 Telephone encounter Note Records release was not signed. Please review and advice. [facility] 01-03-2025 Telephone encounter Note Received call from [facility]. The pharmaceutical specialty representative has appointment with patient's sons this afternoon at 2 pm and is requesting Advanced Directive/POA paperwork that was scanned in on 12/31. Advised to send records request, but she is concerned about not having this paperwork by 2 pm meeting. Student Counselor can be reached at [phone]. Fax number given for records request as well. [facility] 01-02-2025 Telephone encounter Note SOCIAL WORK Date of Service: Thursday January 02, 2025 [facility] Tube Cleaning Operator (SW) Aditi Lopez attempted to contact Yusuf Medina by phone using embalmer/funeral director services to complete the distress assessment. Yusuf has been diagnosed with Normocytic anemia. She flagged for moderate depression on 12-31-24. 08/14/2018 11/21/2024 2024 PHQ-9 Score 9 13 12 SW spoke with Yusuf's family member Mercedes. She advised that Yusuf is in a detention facility. Mercedes advised that she completed the questionnaire without the patient. She also noted that Yusuf will most likely not understand the Ivorian embalmer/funeral director because she speaks a different dialect. At this time, social work service is declined/deferred based on: she pt is at a SNF and family member completed the questionnaire. Please re-consult social work if any other psychosocial needs arise. Unable To Reach Patient PLAN: Follow up on an as needed basis ALEJANDRO Encarnacion [facility] Work Phone: 01-02-2025 Miscellaneous Notes SOCIAL WORK Date of Service: Thursday January 02, 2025 [facility] Tube Cleaning Operator (SW) Aditi Lopez attempted to contact Yusuf Medina by phone using embalmer/funeral director services to complete the distress assessment. Yusuf has been diagnosed with Normocytic anemia. She flagged for moderate depression on 12-31-24. 08/14/2018 11/21/2024 2024 PHQ-9 Score 9 13 12 SW spoke with Yusuf's family member Mercedes. She advised that Yusuf is in a detention facility. Mercedes advised that she completed the questionnaire without the patient. She also noted that Yusuf will most likely not understand the Ivorian embalmer/funeral director because she speaks a different dialect. At this time, social work service is declined/deferred based on: she pt is at a SNF and family member completed the questionnaire. Please re-consult social work if any other psychosocial needs arise. Unable To Reach Patient PLAN: Follow up on an as needed basis ALEJANDRO Encarnacion documented in this encounter 01-02-2025 Instructions Grupo Mendez MD - 01/02/2025 9:19 AM EST Hemoglobin was low at 7.8 Obtaining repeat lab to determine if blood transfusion needed and if needs nutrient support for anemia Recommend repeating blood counts once weekly for next 6 weeks starting next week Please schedule follow-up with Dr. Mendez in 7 weeks For scheduling questions, please call [phone] (tests and appointments). Ask for the oncology medical office scheduler. For symptom management or care coordination questions, please call Renetta at [phone] or use my chart to reach us. After hours with medical questions, please call the doctor on-call at [phone]. Thank you, Grupo Mendez MD documented in this encounter 01-02-2025 Note HNO ID: [id number] Author: GRUPO MENDEZ MD Service: ? Author [...] L REMV CATARACT EXTRACAP,INSERT LENS Bilateral 2020 [facility] FAMILY HISTORY Problem Relation Age of Onset [...] (3 mL) I (more content not included)... [facility] 01-02-2025 History of Present illness Narrative Referring [...] She is undergoing broad spectrum antibiotics through tuesday. She is seeing ID on 01/08/2025. She [...] L REMV CATARACT EXTRACAP,INSERT LENS Bilateral 2020 [facility] FAMILY HISTORY Problem Relation Age of Onset [...] Range Status 01/02/2025 5.9 % Final Abs [place] Date Value Ref Range Status 01/02/2025 0.61 [...] today's encounter, 01/02/2025) documented in this encounter 2024 Telephone encounter Note Dec 31 labs reviewed, no changes The results were attached to the M drive 12-27-2024 Note [facility] 12-27-2024 History of Present illness Narrative Date of Visit: 12/26/2024 CHIEF COMPLAINT: Right ankle wound and NEW RT heel pressure ulcer OR right ankle incision and drainage and ulcer debridement 11/27/24 DM II, HgbA1c 10.4 (11/21/24) ADM 11/21/24-12/12/24 HISTORY OF PRESENT ILLNESS: Patient presents to the wound center for first follow up since admission to [facility] 11/21/24 where she underwent RT [...] PT, but mostly non ambulatory currently at [facility]. Denies N/V/F/C/D/SOB/CP/LP HX S/p RT ankle I&D [...] unsuccessful, became inflamed and infected. Patient arrived via:wheel [facility] Company/Nursing Facility:[facility] rehab until 01/08 for IV abx Consent captured for debridement per Lien Bang DPM and alex until December 2024. Special Instructions (for example, patient stands at the bedside for exam/dressing): Anticoagulant Therapy:n/a Living Situation (ie... 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 Provider seeing patient:Lien Bang ANIRUDH __ WOUND ASSESSMENT: Refer to Provider's Wound [...] COMPRESSION: N/A DME: [employer] order date DME: [facility] , PH: [phone] SPECIAL NEEDS: Coordination of care N/A Emotional support N/A OR set-up N/A Assessment Services Manager N/A Incontinence needs N/A DISCHARGED in stable [...] of questions 5-9, consult the Hyperbaric Center Sravanthi Hollis RN/TC documented in this encounter 12-26-2024 Telephone encounter Note Noted Willie Kaur APRN.CNP 12-26-2024 Miscellaneous Notes Noted Willie Kaur APRN.CNP Contacted kyrie Armstrong--advised we do not have POA from pt [...] caregiver demetria tapia calling to have her WorkCast message she sent below addressed. Yusuf Robles's sons and are in town to make an assessment whether she is able to go home from rehab. Can you talk with them to help with their decision? Please call Nathaniel Medina at [phone]. They are here till Tuesday 12 noon. Thank you. documented in this encounter 12-26-2024 Telephone encounter Note Contacted kyrie Armstrong--advised we do not have POA from pt to disclose health information to him Advised Nathaniel that the rehab team will need to make determination if pt is able to be discharged from rehab, we are unable to make that decision or act on pt behalf until she is discharged. Nathaniel states he will get a POA to act on pt's behalf 12-26-2024 Telephone encounter Note Dec 24 labs reviewed, no changes The results were attached to the M drive 12-26-2024 Telephone encounter Note Addressed in other encounter. Willie Kaur APRN.MEDICAL MANAGEMENT SPECIALIST 12-26-2024 Miscellaneous Notes Addressed in other encounter. Willie Kaur APRN.MEDICAL MANAGEMENT SPECIALIST documented in this encounter 12-26-2024 Instructions Sravanthi Hollis RN - 12/26/2024 1:09 PM EST WOUND CARE INSTRUCTIONS- Yusuf Medina [facility]ound [facility]: [facility] -PLEASE CONTINUE WOUND VAC PREVIOUS ON [...] following changes to the Wound Center at [phone] or go to the Emergency Department: Fever or chills Increased drainage Green or yellow drainage Foul odor Increased pain Hardness around the wound Redness, warmth or swelling of the surrounding tissue Color change to the wound When contacting the wound center at the ([phone]): Leave a message that includes your full [...] to be scheduled through Central Scheduling. Call [phone].(If applicable) Please be aware that the Covid19 exposure questions will be asked as you enter the hospital and as you arrive to each area. Thank you for your patience and understanding as we attempt to protect our patients during this difficult time. Lien Bang DPM/fhm/tc documented in this encounter 12-26-2024 Note [facility] 12-26-2024 Telephone encounter Note I wish [...] physical safety for discharge. Willie Kaur APRN.DRAKE 12-26-2024 Telephone encounter Note Spoke to the nurse, naveen Cartwright requested 12-26-2024 Telephone encounter Note Patients caregiver demetria tapia calling to have her WorkCast message she sent below addressed. Yusuf Robles's sons and are in town to make an assessment whether she is able to go home from rehab. Can you talk with them to help with their decision? Please call Nathaniel Medina at [phone]. They are here till Tuesday 12 noon. Thank you. Work Phone: 12-25-2024 Telephone encounter Note The following approved medication requests have been transmitted electronically. Requested Prescriptions Signed Prescriptions Disp Refills amLODIPine (NORVASC) 5 mg tablet 90 tablet 3 Sig: TAKE 1 TABLET BY MOUTH ONCE DAILY Authorizing Provider: WILLIE KAUR APRN.MEDICAL MANAGEMENT SPECIALIST 12-25-2024 Miscellaneous Notes The following approved medication requests have been transmitted electronically. Requested Prescriptions Signed Prescriptions Disp Refills amLODIPine (NORVASC) 5 mg tablet 90 tablet 3 Sig: TAKE 1 TABLET BY MOUTH ONCE DAILY Authorizing Provider: WILLIE KAUR APRN.MEDICAL MANAGEMENT SPECIALIST Patient has been identified by name and [...] Aditi Phan LPN documented in this encounter 12-25-2024 Telephone encounter Note Patient has been [...] Please review and advise. Aditi Phan LPN 12-20-2024 Telephone encounter Note Dec 17 labs wnl The differential wasn't done on the cbc The EMERGENCY MANAGEMENT CONSULTANT has added it on moving forward The results were attached to the M drive [facility] 12-20-2024 Telephone encounter Note Spoke to the EMERGENCY MANAGEMENT CONSULTANT, naveen requested [facility] 12-13-2024 Telephone encounter Note Lilo from [facility] called [phone] to schedule the follow up, I gave her the [facility] number and 01/08 for the schedule date. Delfina Elias [facility] 12-11-2024 Note [facility] 12-10-2024 Telephone encounter Note Yusuf is still inpt at [facility] She will be d/c to [facility] [phone] [facility] 12-10-2024 Note [facility] 12-10-2024 Note [facility] 12-09-2024 Note [facility] 12-09-2024 Note [facility] 12-08-2024 Note [facility] 12-07-2024 Note [facility] 12-07-2024 [facility] [facility] 12-06-2024 Note [facility] 12-05-2024 Note [facility] 12-04-2024 Note [facility] 12-03-2024 Note [facility] 12-02-2024 Note [facility] 12-01-2024 Note [facility] 12-01-2024 Note [facility] 12-01-2024 Note [facility] 11-30-2024 Note [facility] 11-29-2024 Note [facility] 11-29-2024 Telephone encounter Note Summary: COPAT ACTION-FOR IDC USE ONLY Images from the original note were not included. 11/28/2024 8:48 PM Pierce Chi NM PROVIDER ADULT [id number] Patient Info Patient Name Sex Yusuf Medina ([id number]) Female 1935 Encounter Notes Progress Notes by Pierce Chi MD, encounter date 11/28/2024: Progress Notes Outpatient Parenteral Antimicrobial Therapy (OPAT) Start Form Patient Info Patient MRN Patient Name Address Date of [id number] Yusuf Medina [address] [facility] [id number] 1935 Start Date 11/28/2024 Physician Group [facility] [...] Monitoring Treatment Course Pierce Chi MD Address [address] [place] [address] Prescribing Provider's signature - electronically signed by Pierce Chi MD on 11/28/24 at 8:50 PM 11-29-2024 Note [facility] 11-28-2024 Note [facility] 11-28-2024 History of Present illness Narrative Images from the original note were not included. Outpatient Parenteral Antimicrobial Therapy (OPAT) Start Form Patient Info Patient MRN Patient Name Address Date of [id number] Yusuf Medina [address] [facility] [id number] 1935 Start Date 11/28/2024 [facility]ician Group [facility] [...] Monitoring Treatment Course Pierce Chi MD Address [address] [place] [address] Prescribing Provider's signature - electronically signed by Pierce Chi MD on 11/28/24 at 8:50 PM documented in this encounter 11-28-2024 Note [facility] 11-28-2024 Note [facility] 11-27-2024 Telephone encounter Note The following approved medication requests have been transmitted electronically. Requested Prescriptions Signed Prescriptions Disp Refills metFORMIN (GLUCOPHAGE) 850 mg tablet 180 tablet 3 Sig: TAKE 1 TABLET BY MOUTH TWICE DAILY WITH MEALS Authorizing Provider: WILLIE KAUR APRN.MEDICAL MANAGEMENT SPECIALIST 11-27-2024 Miscellaneous Notes The following approved medication requests have been transmitted electronically. Requested Prescriptions Signed Prescriptions Disp Refills metFORMIN (GLUCOPHAGE) 850 mg tablet 180 tablet 3 Sig: TAKE 1 TABLET BY MOUTH TWICE DAILY WITH MEALS Authorizing Provider: WILLIE KAUR APRN.CNP Patient has [...] Martina Tucker MA documented in this encounter 11-27-2024 [facility] 11-27-2024 Telephone encounter Note Patient has [...] Please review and advise. Martina Tucker MA 11-26-[address] Mendez reviewed labs from [facility]. Dr. Mendez recommended for patient to be seen around mid Dec 2024 as hem/onc follow-up. Grupo Mendez MD November 26, 2024 5:33 PM Work Phone: 11-26-[address] Mendez reviewed labs from [facility]. Dr. Mendez recommended for patient to be seen around mid Dec 2024 as hem/onc follow-up. Grupo Mendez MD November 26, 2024 5:33 PM Spoke w/ pt behavioral health associateDemetria. Pt is still inpatient. When she is discharged she will be sent to a rehab and will not be able to make appts. Any time soon. Please advise for further requirements. documented in this encounter 11-26-2024 Note [facility] 11-26-2024 Telephone encounter Note Spoke w/ pt behavioral health associateDemetria. Pt is still inpatient. When she is discharged she will be sent to a rehab and will not be able to make appts. Any time soon. Please advise for further requirements. 11-26-2024 Note [facility] 11-25-2024 Note [facility] 11-24-2024 Note [facility] 11-23-2024 Note [facility] 11-23-2024 Note [facility] 11-22-2024 Note [facility] 11-21-2024 Note [facility] 11-21-2024 Telephone encounter Note Currently has appointment in Rheumatology 01/04/25 to evaluate for inflammatory arthritis. There was a Hematology appointment scheduled 12/03/24, but rescheduled by family due to location. MRI ankle 11/19/24 ordered by Orthopedics. Patient sent My Chart message to Orthopedics 11/20/24. I reminded patient/family that My Chart can take up to 72 business hours for response. Willie Kaur APRN.DRAKE 11-21-2024 Miscellaneous Notes Currently has appointment in Rheumatology 01/04/25 to evaluate for inflammatory arthritis. There was a Hematology appointment scheduled 12/03/24, but rescheduled by family due to location. MRI ankle 11/19/24 ordered by Orthopedics. Patient sent My Chart message to Orthopedics 11/20/24. I reminded patient/family that My Chart can take up to 72 business hours for response. Willie Kaur APRN.CNP documented in this encounter 11-19-2024 History of Present illness Narrative Radiology [...] PATIENT PRESENTS WITH AN IMPLANTABLE OR ATTACHED CUTTER OUT: No RADIOLOGY DEPARTMENT: MR; Exam(s) Completed: Lower MSK: Ankle/Hind Foot, right PERIPHERAL IV DATA: Not applicable SIGNED BY: FRANCIS Tierney November 19, 2024 10:07 AM documented in this encounter 11-19-2024 Note HNO ID: [id number] Author: YAZ MAYFIELD MRI Tech Service: Radiology Author Type: Network Control Technician Type: Progress Notes Filed: 11/19/2024 10:08 Note [...] PATIENT PRESENTS WITH AN IMPLANTABLE OR ATTACHED CUTTER OUT: No RADIOLOGY DEPARTMENT: MR; Exam(s) Completed: Lower MSK: Ankle/Hind Foot, right PERIPHERAL IV DATA: Not applicable SIGNED BY: FRANCIS Tierney November 19, 2024 10:07 AM [facility] 11-06-2024 Telephone encounter Note Patient took a sooner appt in November. 11-06-2024 Miscellaneous Notes Patient took a sooner appt in November. Currently has Rheumatology scheduled 01/04/25. Are there any sooner appointments and would family be interested? She has been seeing Hematology and they think that her abnormal blood work may have a Rheumatology cause. Willie Kaur APRN.MEDICAL MANAGEMENT SPECIALIST documented in this encounter 11-06-2024 Telephone encounter Note Currently has Rheumatology scheduled 01/04/25. Are there any sooner appointments and would family be interested? She has been seeing Hematology and they think that her abnormal blood work may have a Rheumatology cause. 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 Patient is leaving to [place] for 2 weeks I will schedule lab on 11/21/2024 and see her on 11/22/2024 at 9:10 AM for iron deficiency (this is separate issue). Renetta with care coordination will kindly help with arranging lab and follow-up as above. Patient and family aware of my plan. 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 Patient is leaving to [place] for 2 weeks I will schedule lab on 11/21/2024 and see her on 11/22/2024 at 9:10 AM for iron deficiency (this is separate issue). Renetta with care coordination will kindly help with arranging lab and follow-up as above. Patient and family aware of my plan. Grupo Mendez MD November 05, 2024 6:55 PM documented in this encounter 11-01-2024 Note Addended by: SIMONE AGUILAR on: 11/01/2024 03:34 PM Modules accepted: Orders 11-01-2024 Miscellaneous Notes Addended by: SIMONE KEVIN on: 11/01/2024 03:34 PM Modules accepted: Orders documented in this encounter 11-01-2024 Note HNO ID: [id number] Author: SIMONE KEVIN MD Service: ? Author [...] L REMV CATARACT EXTRACAP,INSERT LENS Bilateral 2020 [facility] Family History: FAMILY HISTORY Problem Relation Age of Onset None Brother None Sister None Brother Medications: Current Outpatient Medications Medication Sig meloxicam (MOBIC) 15 mg tablet TAKE 1 TABLET BY MOUTH ONCE DAILY NEEDED FOR PAIN. DO NOT COMBINE WITH DICLOFENAC GEL traZODone (DESYREL) 50 mg tablet Take 1 tablet by mouth at bedtime as needed for sedation. blood sugar diagnostic ([employer] CorporationTOUCH ULTRA TEST) test strip Test blood sugar [...] her anatomy B (more content not included)... [facility] 11-01-2024 History of Present illness Narrative November [...] L REMV CATARACT EXTRACAP,INSERT LENS Bilateral 2020 [facility] Family History: FAMILY HISTORY Problem Relation Age of Onset None Brother None Sister None Brother Medications: Current Outpatient Medications Medication Sig meloxicam (MOBIC) 15 mg tablet TAKE 1 TABLET BY MOUTH ONCE DAILY NEEDED FOR PAIN. DO NOT COMBINE WITH DICLOFENAC GEL traZODone (DESYREL) 50 mg tablet Take 1 tablet by mouth at bedtime as needed for sedation. blood sugar diagnostic (ONETOUCH ULTRA TEST) test [...] next visit: No [place]: [place] [id number] [facility] [id number] FELLOW / RESIDENT: No fellow or resident assisted in this office visit. Simone Kevin MD documented in this encounter 10-29-2024 Note HNO ID: [id number] Author: AB BENSON MD Service: ? Author Type: Physician Type: Progress Notes Filed: 11/04/2024 19:29 Note Text: This note was created using [employer]. Subjective Yusuf Mednia is a 88 year old female About [...] and family voiced understanding. Ab Benson MD [facility] 10-29-2024 History of Present illness Narrative Images from the original note were not included. This note was created using [employer]. Subjective Yusuf Medina is a 88 year [...] Ab Benson MD documented in this encounter 10-12-2024 Telephone encounter Note The following approved medication requests have been transmitted electronically. Requested Prescriptions Signed Prescriptions Disp Refills meloxicam (MOBIC) 15 mg tablet 90 tablet 3 Sig: TAKE 1 TABLET BY MOUTH ONCE DAILY NEEDED FOR PAIN. DO NOT COMBINE WITH DICLOFENAC GEL Authorizing Provider: WILLIE KAUR APRN.CNP 10-12-2024 Miscellaneous Notes The following approved medication requests have been transmitted electronically. Requested Prescriptions Signed Prescriptions Disp Refills meloxicam (MOBIC) 15 mg tablet 90 tablet 3 Sig: TAKE 1 TABLET BY MOUTH ONCE DAILY NEEDED FOR PAIN. DO NOT COMBINE WITH DICLOFENAC GEL Authorizing Provider: WILLIE KAUR APRN.CNP Patient has [...] Martina Tucker MA documented in this encounter 10-12-2024 Telephone encounter Note Patient has been [...] Please review and advise. Martina Tucker MA 09-20-2024 History of Present illness Narrative September [...] L REMV CATARACT EXTRACAP,INSERT LENS Bilateral 2020 [facility] Family History: FAMILY HISTORY Problem Relation Age of Onset None Brother None Sister None Brother Medications: Current Outpatient Medications Medication Sig traZODone (DESYREL) 50 mg tablet Take 1 tablet by mouth at bedtime as needed for sedation. blood sugar diagnostic (Kimb[employer]CH ULTRA TEST) test strip Test blood sugar [...] next visit: No PCP: [place] [id number] [facility] [id number] FELLOW / RESIDENT: No fellow or resident assisted in this office visit. Simone Kevin MD documented in this encounter 09-20-2024 Note HNO ID: [id number] Author: SIMONE KEVIN MD Service: ? Author [...] L REMV CATARACT EXTRACAP,INSERT LENS Bilateral 2020 [facility] Family History: FAMILY HISTORY Problem Relation Age of Onset None Brother None Sister None Brother Medications: Current Outpatient Medications Medication Sig traZODone (DESYREL) 50 mg tablet Take 1 tablet by mouth at bedtime as needed for sedation. blood sugar diagnostic ([employer] CorporationTOUCH ULTRA TEST) test strip Test blood sugar [...] May have so (more content not included)... [facility] 09-19-2024 History of Present illness Narrative Radiology [...] PATIENT PRESENTS WITH AN IMPLANTABLE OR ATTACHED CUTTER OUT: No RADIOLOGY DEPARTMENT: General X-ray: Exam(s) Completed: Lower Extremity X-Ray(s): Foot, Right and Wt. Bearing and Heel, Right and Wt. Bearing PERIPHERAL IV DATA: Not applicable SIGNED BY: RUT Hui September 19, 2024 2:13 PM documented in this encounter 09-19-2024 Note HNO ID: [id number] Author: ZAID KUHN CT Service: Radiology Author [...] PATIENT PRESENTS WITH AN IMPLANTABLE OR ATTACHED CUTTER OUT: No RADIOLOGY DEPARTMENT: General X-ray: Exam(s) Completed: Lower Extremity X-Ray(s): Foot, Right and Wt. Bearing and Heel, Right and Wt. Bearing PERIPHERAL IV DATA: Not applicable SIGNED BY: RUT Hui September 19, 2024 2:13 PM [facility] 09-18-2024 Telephone encounter Note Results were reviewed. I spoke with [id number] Demetria about suspicion for calcaneal bone fracture. Orders Signed This Visit (1) CONSULT PANEL TO ORTHOPAEDICS STAT, Dx: 1. Right ankle swelling 2. Closed nondisplaced fracture of right calcaneus, unspecified portion of calcaneus, initial encounte Grupo Mendez MD September 18, 2024 9:19 PM 09-18-2024 Miscellaneous Notes Results were reviewed. I spoke with egtprf-la-trg Demetria about suspicion for calcaneal bone fracture. Orders Signed This Visit (1) CONSULT PANEL TO ORTHOPAEDICS STAT, Dx: 1. Right ankle swelling 2. Closed nondisplaced fracture of right calcaneus, unspecified portion of calcaneus, initial encounte Grupo Mendez MD September 18, 2024 9:19 PM documented in this encounter 09-18-2024 History of Present illness Narrative Radiology [...] PATIENT PRESENTS WITH AN IMPLANTABLE OR ATTACHED CUTTER OUT: No RADIOLOGY DEPARTMENT: Ultrasound PERIPHERAL IV DATA: Not applicable SIGNED BY: Christina Tucker RDMS September 18, 2024 8:37 AM documented in this encounter 09-18-2024 Note [facility] 09-17-2024 Telephone encounter Note This was addressed in hematology appointment in [place]. Closing this encounter 09-17-2024 Miscellaneous Notes This was addressed in hematology appointment in [place]. Closing this encounter left for patient's son. She has an appointment today in [place]-can Yusuf go to express care there after hematology? documented in this encounter 09-17-2024 Instructions Grupo Mendez MD - 09/17/2024 3:52 PM EST Please schedule Xray right ankle today Please schedule STAT US DVT right lower leg tomorrow Please send patient to lab today For scheduling questions, please call [phone] (tests and appointments). Ask for the oncology medical office scheduler. For symptom management or care coordination questions, please call Renetta Holder at [phone] or use my chart to reach us. After hours with medical questions, please call the doctor on-call at [phone]. Thank you, Grupo Mendez MD documented in this encounter 09-17-2024 History of Present illness Narrative Consultation requested by Dr. Migdalia Cramer for an opinion regarding leukocytosis. My final recommendations will be communicated back to the requesting physician by way of shared Medical record or letter to requesting physician via US mail. Presenting complaint: Patient Yusuf Medina was sent to my office to be evaluated for leukocytosis. ASSESSMENT: (D71.429) Leukocytosis, unspecified type (primary encounter diagnosis) Comment: [...] L REMV CATARACT EXTRACAP,INSERT LENS Bilateral 2020 [facility] FAMILY HISTORY Problem Relation Age of Onset [...] as needed for sedation. blood sugar diagnostic (KimbiaUCH ULTRA TEST) test strip Test blood sugar [...] Range Status 09/17/2024 5.5 % Final Abs [place]on Date Value Ref Range Status 09/17/2024 0.52 [...] Migdalia Ortiz MD documented in this encounter 09-17-2024 Note HNO ID: [id number] Author: GRUPO MENDEZ MD Service: ? Author [...] office to be evaluated for leukocytosis. ASSESSMENT: (J15.864) Leukocytosis, unspecified type (primary encounter diagnosis) Comment: [...] L REMV CATARACT EXTRACAP,INSERT LENS Bilateral 2020 [facility] FAMILY HISTORY Problem Relation Age of Onset [...] as needed for sedation. blood sugar diagnostic (ONETOUCH ULTRA TEST) test [...] ONCE DAILY metFORMIN (more content not included)... [facility] 09-17-2024 Telephone encounter Note Vm left for patient's son. She has an appointment today in [place]-can Yusuf go to express care there after hematology? 09-13-2024 Note HNO ID: [id number] Author: MIGDALIA CRAMER MD Service: ? Author [...] panel in 6 months Migdalia Cramer MD [facility] 09-13-2024 History of Present illness Narrative Images [...] Migdalia Cramer MD documented in this encounter 09-13-2024 Instructions Migdalia Cramer MD - 09/13/2024 [...] review all the medicines you take, even werp-jzg-xugwfsp medicines. As you get older, the way [...] certain medical conditions. documented in this encounter 09-04-2024 Telephone encounter Note Patient has been scheduled for 09/17 Thank you 09-04-2024 Miscellaneous Notes Patient has been scheduled for 09/17 Thank you Please contact the patient's yarfbq-ow-bnx Demetria at [phone] to assist with scheduling a consult with hematology/oncology for a high white blood cell count. I sent a MyCNuvolat message today about test results: Rhys Castillo and oNri Augustin for the delay in communicating about the [...] recommend we get a consultation with a marine pipe welder, a blood specialist. I put an order in for a consultation and will ask a medical office scheduler to contact you to get it set up. We just want to make sure there is nothing serious going on that we should be more concerned about. Migdalia Cramer MD documented in this encounter 09-04-2024 Telephone encounter Note Please contact the patient's nwjqoh-ki-arj Demetria at [phone] to assist with scheduling a consult with hematology/oncology for a high white blood cell count. I sent a [employer] message today about test results: Rhys Castillo and Nori Augustin for the delay in communicating about the [...] recommend we get a consultation with a marine pipe welder, a blood specialist. I put an order in for a consultation and will ask a medical office scheduler to contact you to get it set up. We just want to make sure there is nothing serious going on that we should be more concerned about. Migdalia Cramer MD 08-22-2024 Telephone encounter Note Patients sister in law has been informed. Thank you 08-22-2024 Miscellaneous Notes Patients sister in law [...] of the labs. documented in this encounter 08-21-2024 Telephone encounter Note Please let her know that Dr. Cramer is currently evaluating the lab results and will reach out to her as soon as he is able. He is currently out of the office. ,Willie Kaur APRN.CNP 08-21-2024 Telephone encounter Note The following approved medication requests have been transmitted electronically. Requested Prescriptions Signed Prescriptions Disp Refills blood sugar diagnostic (ONETOUCH ULTRA TEST) test strip 100 Strip 3 Sig: Test blood sugar once daily Authorizing Provider: WILLIE KAUR APRN.CNP 08-21-2024 Miscellaneous Notes The following approved medication [...] 2024 10:12 AM documented in this encounter 08-21-2024 Telephone encounter Note Patient has been [...] Please review and advise. Jame Hernandez MA [facility] 08-21-2024 Telephone encounter Note Prescription Refill [...] Perla Perez August 21, 2024 10:12 AM [facility] 08-21-2024 Telephone encounter Note Patients sister in law called and wanted to discuss the results of the labs. [facility] 08-14-2024 History of Present illness Narrative [...] COMBINE WITH DICLOFENAC GEL blood sugar diagnostic (KimbiaUCH ULTRA TEST) test strip Test blood sugar [...] a long period of time Willie Kaur APRN.MEDICAL MANAGEMENT SPECIALIST I have personally performed a xdgt-jn-[id number] evaluation on this patient. I have reviewed [...] Migdalia Cramer MD documented in this encounter 08-14-2024 Note HNO ID: [id number] Author: MIGDALIA CRAMER MD Service: ? Author [...] COMBINE WITH DICLOFENAC GEL blood sugar diagnostic (ONETOUCH ULTRA TEST) test [...] swelling or eryt (more content not included)... [facility] 08-13-2024 Note SARS-COV-2 (AGENT OF COVID-19) RNA: Not detected INFLUENZA A RNA: Not detected INFLUENZA B RNA: Not detected RESPIRATORY SYNCYTIAL VIRUS (RSV) RNA: Not detected [facility] Comment on above: Performed By: #### 9 [id number] ####[facility] LABORATORYCLIA [id number] [address] [facility] 08-13-2024 Telephone encounter Note Called sister in law who is with the patient, patient is Ivorian speaking. ? Blood sugar-patient checks every am, did not do today and is not understanding that sister in law would like her to check it now. She did eat this morning Falls recently Concern based on pill box that she may have taken a days Sister-in -law is in agreement that patient needs to be seen in an emergency room-[place] is close. Reason for Disposition [1] Drinking very little AND [2] dehydration suspected (e.g., no urine > 12 hours, very dry mouth, very lightheaded) Answer Assessment - Initial Assessment Questions 1. DESCRIPTION: Describe how you are feeling. Patient speaks Ivorian, Sister-in -law is there with her. Patient [...] pain) no Protocols used: Weakness (Generalized) and Mbfbwia-[id number]-[id number] 08-13-2024 Miscellaneous Notes Called sister in law who is with the patient, patient is Ivorian speaking. ? Blood sugar-patient checks every am, did not do today and is not understanding that sister in law would like her to check it now. She did eat this morning [place] recently Concern based on pill box that she may have taken a days Sister-in -law is in agreement that patient needs to be seen in an emergency room-[place] is close. Reason for Disposition [1] Drinking very little AND [2] dehydration suspected (e.g., no urine > 12 hours, very dry mouth, very lightheaded) Answer Assessment - Initial Assessment Questions 1. DESCRIPTION: Describe how you are feeling. Patient speaks Ivorian, Sister-in -law is there with her. Patient [...] pain) no Protocols used: Weakness (Generalized) and Usvsqko-FMQLC-ST Patient's caregiver Demetria spoke with the patient [...] seen today. Demetria can be reached at [phone]. documented in this encounter 08-13-2024 Telephone encounter Note Patient's caregiver Demetria [...] seen today. Demetria can be reached at [phone]. 08-10-2024 Telephone encounter Note The following approved medication requests have been transmitted electronically. Requested Prescriptions Signed Prescriptions Disp Refills glipiZIDE (GLUCOTROL XL) 2.5 mg 24 hr tablet 90 tablet 3 Sig: TAKE 1 TABLET BY MOUTH ONCE DAILY Authorizing Provider: WILLIE KAUR APRN.DRAKE 08-10-2024 Miscellaneous Notes The following approved medication [...] Sandrita Christianson LPN documented in this encounter 08-10-2024 Telephone encounter Note Patient has been [...] Please review and advise. Sandrita Christianson LPN 07-19-2024 Telephone encounter Note The following approved [...] BEING SHIPPED Authorizing Provider: WILLIE KAUR APRN.CNP 07-19-2024 Miscellaneous Notes The following approved medication [...] KAUR APRN.CNP Short term supply to [facility], termite exterminator helper to [facility] per message below. [...] 2024 9:49 AM documented in this encounter 07-19-2024 Telephone encounter Note Short term supply to [facility], termite exterminator helper to [facility] per message below. 07-19-2024 Telephone encounter Note Prescription Refill Information [...] Perla Perez July 19, 2024 9:49 AM 07-12-2024 Instructions Migdalia Cramer MD - 07/12/2024 9:56 AM EDT Try drinking 1 Glucerna a day to get some extra calories. I don't want you to continue to lose weight. Take all medications exactly as prescribed. Please have labs done again in late August. Keep appointment scheduled for 09/13/24 for Medicare Annual Wellness Visit. documented in this encounter 07-12-2024 Note HNO ID: [id number] Author: MIGDALIA CRAMRE MD Service: ? Author Type: Physician Type: [...] of keeping this visit Migdalia Cramer MD [facility] 07-12-2024 History of Present illness Narrative SUBJECTIVE: [...] Migdalia Cramer MD documented in this encounter 05-23-2024 Telephone encounter Note Patient has been [...] Please review and advise. Sandrita Christianson LPN 05-23-2024 Miscellaneous Notes Patient has been identified [...] sehe only has 2 pills left Perla Bang [facility] May 23, 2024 10:28 AM documented in this encounter 05-23-2024 Telephone encounter Note Prescription Refill Information [...] sehe only has 2 pills left Perla Bang [facility] May 23, 2024 10:28 AM 04-26-2024 Telephone encounter Note Scheduled for Medicare AWV 09/13/24 Has lab orders The following approved medication requests have been transmitted electronically. Requested Prescriptions Signed Prescriptions Disp Refills pioglitazone (ACTOS) 45 mg tablet 90 tablet 3 Sig: Take 1 tablet by mouth once daily. Authorizing Provider: MIGDALIA CRAMER MD 04-26-2024 Miscellaneous Notes Scheduled for Medicare AWV [...] Jame Hernandez MA documented in this encounter 04-26-2024 Telephone encounter Note Patient has been [...] Please review and advise. Jame Hernandez MA 04-16-2024 Telephone encounter Note Spoke with Demetria caldwell and explained that her current Rx is for Glipizide/Glucotrol 2.5 mg once daily - not for Glyburide. Verbalized understanding. No further questions. 04-16-2024 Miscellaneous Notes Spoke with Demetria caldwell and explained that her current Rx is for Glipizide/Glucotrol 2.5 mg once daily - not for Glyburide. Verbalized understanding. No further questions. 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 Please advise documented in this encounter 04-16-2024 Telephone encounter Note Patients in law Augustin called and needs clarification on the patient diabetes medications she stated that she got a call from [place] stating that she had glyburide ready for corn picker but she thought she was supposed to be taking glipizide. Please advise 03-21-2024 History of Present illness Narrative Type [...] its relevant components. documented in this encounter 03-13-2024 History of Present illness Narrative POPULATION HEALTH NAVIGATION OUTREACH Action/FYI Order approved by provider. Demetria informed. Reason for Outreach Community Monitoring/Network Navigator Pools & Phone Line: Phone Line Patient Contacted: Spoke to patient/parent/or legal guardian Patient identified by name and : Yes Community Monitoring/Network Navigator Pools & Phone Line actions taken: No action needed Navigation Signature: Lien Rutledge MA March 13, 2024 4:52 PM POPULATION HEALTH NAVIGATION OUTREACH Action/FYI Spoke with [id number] Demetria. Patient is on [facility] for the following HM care gaps: Schedule [...] - Dilated Retinal Exam 04/12/2024 in [facility] with ADITI CAMARGO HFU pseudogout 07/12/2024 in [facility] with MIGDALIA CRAMER - Follow Up, HCC Gap Closure 09/13/2024 in [facility] with MIGDALIA CRAMER - AWV Due HCC related Navigation Signature: Lien Rutledge MA March 13, 2024 2:52 PM documented in this encounter 02-28-2024 Miscellaneous Notes The following approved medication requests have been transmitted electronically. Requested Prescriptions Signed Prescriptions Disp Refills lansoprazole (PREVACID) 30 mg capsule 90 capsule 3 Sig: Take 1 capsule by mouth once daily. Authorizing Provider: WILLIE KAUR APRN.MEDICAL MANAGEMENT SPECIALIST Order pended for mail Last OV-04/23/2023 [facility] Next OV-none Structural Design Engineer is calling ,asking for a refill on the following medications . pravastatin (PRAVACHOL) 20 mg tablet 90 tablet 3 10/23/2022 10/23/2023 Sig: Take 1 tablet by mouth once daily. Sent to pharmacy as: pravastatin (PRAVACHOL) 20 mg tablet Class: Normal Route: ORAL Order: [id number] E-Prescribing Status: Receipt confirmed by pharmacy (10/23/2022 9:10 AM EST) She doesn't have many left , they are asking for this fill to be sent to the [facility] . Then if she gets refills send it to the mail in pharmacy . Please advise and route back so we can make behavioral health associate aware . Thanks documented in this encounter 02-01-2024 Miscellaneous Notes The following approved medication requests have been transmitted electronically. Requested Prescriptions Signed Prescriptions Disp Refills lisinopril-hydroCHLOROthiazide (ZESTORETIC) 20-25 mg per tablet 90 tablet 3 Sig: TAKE 1 TABLET BY MOUTH ONCE DAILY Authorizing Provider: WILLIE KAUR APRN.CNP documented in this encounter 02-01-2024 Miscellaneous Notes The following approved medication requests have been transmitted electronically. Requested Prescriptions Signed Prescriptions Disp Refills amLODIPine (NORVASC) 5 mg tablet 90 tablet 3 Sig: TAKE 1 TABLET BY MOUTH ONCE DAILY Authorizing Provider: WILLIE KAUR APRN.CNP documented in this encounter 01-24-2024 Miscellaneous Notes Contacted the caregiver stated the patient corn picker the prescription. Request denied no further action needed. 7 day short term Rx sent to [facility] on 01/11/24. 1 year termite exterminator helper Rx sent to [facility] on 01/11/24. Please call to clarify if anything is needed. Pended Rx in this encounter is another 7 day supply Metformin. Willie Kaur APRN.CNP Patient has been identified [...] review and advise. Jame Hernandez MA [address] Willie Kaur APRN.CNP Order Providers Prescribing Provider Encounter Provider Willie Kaur APRN.Migdalia Victoria MD Outpatient Medication Detail Disp Refills Start End metFORMIN (GLUCOPHAGE) 850 mg tablet 14 tablet 0 01/11/2024 01/18/2024 Sig: Take 1 tablet by mouth two times a day with meals for 7 days. Sent to pharmacy as: metFORMIN (GLUCOPHAGE) 850 mg tablet Class: Normal Route: ORAL Order: [id number] E-Prescribing Pt states she is completely out and mail order has not come in would like a short supply sent to [facility] documented in this encounter 01-11-2024 Miscellaneous Notes The following approved medication [...] day with meals. Authorizing Provider: WILLIE KAUR APRN.CNP Patient has [...] for temporary supply to be sent to [facility] while they wait for [facility] for 90 day supply. Please review and advise. Jame Hernandez MA Yusuf Medina called today. Reason : Yusuf behavioral health associate is calling today , she states the [...] mg tablet Class: Normal Route: ORAL Order: [id number] E-Prescribing Status: Receipt confirmed by pharmacy (10/14/2023 2:49 PM EST) Please advise and route back so caregiver can be updated . Thanks documented in this encounter 10-14-2023 Miscellaneous Notes The following approved medication [...] also needs an emergency script sent to [facility] [address] in [place]. Patient has been identified by name and date of : Yes Requested Prescriptions Pending Prescriptions Disp Refills metFORMIN (GLUCOPHAGE) 850 mg tablet 180 tablet 3 Sig: Take 1 tablet by mouth two times a day with meals. RX INSTRUCTIONS: Patient aware RX escripted to mail away pharmacy. No need to notify patient. Dinora Perez documented in this encounter 09-06-2023 Miscellaneous Notes The following approved medication [...] Jame Hernandez MA documented in this encounter 08-31-2023 Miscellaneous Notes Called the number on the chart and confirmed with behavioral health associate that the medication has been sent as [...] once daily. Authorizing Provider: WILLIE KAUR APRN.CNP Contacted Demetria who states patient is out of Glipizide as of today, she took her last pill today. Informed her that 1 year supply was sent to [facility] pharmacy on 06/02/23. Demetria states that's the problem, all her medications need to go through mail order as her insurance will not cover medications sent to [facility]. Informed her that will send high priority to provider to send short term supply of medication to pharmacy today so it can be picked up and termite exterminator helper supply to be sent through mail order. Demetria agreeable and verbalized understanding. Please advise Thank you! Please call to review with Demetria the pharmacy issue for patient's Glipizide. She is asking for a call today as the patient has 1 left. documented in this encounter 06-23-2023 Miscellaneous Notes The following approved medication requests have been transmitted electronically. Requested Prescriptions Signed Prescriptions Disp Refills metFORMIN (GLUCOPHAGE) 850 mg tablet 180 tablet 3 Sig: Take 1 tablet by mouth twice daily with meals. Authorizing Provider: WILLIE KAUR APRN.CNP Patient has [...] Laura Hay Pss documented in this encounter 06-03-2023 Miscellaneous Notes Called and left VM. Morro Tomas, Patient [employer] 1st attempt Lvm , will try again [...] would like the medication sent to the [facility] Pharmacy [address] [place] [id number] Leanne Ding documented in this encounter 05-12-2023 Miscellaneous Notes 7.6 (03/08/2023) documented in this encounter 04-28-2023 History of Present illness Narrative POPULATION HEALTH NAVIGATION OUTREACH Action/I Patient Outreach: Left voicemail for patient to call back to schedule in RST. (Please see Epic order dated for (03/17/2023). Any agent can assist with scheduling. Patient Identified by Name and : NO Outreach Outcome/Action Unable to reach patient: Left message Did you use a PCP flex slot to schedule this appointment? No Reason for Outreach Care Gap or Scheduling/Wellness visits Payer: Payor: [facility] MEDICARE / Plan: [facility] MEDICARE ADVANTAGE PPO / Product Type: PPO [...] 2023 12:52 PM documented in this encounter 04-20-2023 Miscellaneous Notes Contacted patient's caregiver Demetria, [...] glucometer as needed Authorizing Provider: WILLIE KAUR APRN.MEDICAL MANAGEMENT SPECIALIST Contacted patient's caregiver Demetria who states patient's blood sugar monitor is 10 or more years old and patient's blood sugar read 25, then it read in the 200's when re-checked it right after. Demetria wondering if patient's blood glucose monitor working correctly & if she needs a new one? Please advise Thank you Patient's behavioral health associate Demetria calling with a question for a nurse regarding the patient's blood glucose monitor. Please call. TY documented in this encounter 04-20-2023 Miscellaneous Notes Caregiver made aware Appointment [...] if ok. TY documented in this encounter 04-13-2023 Instructions Willie Kaur APRN.CNP - 04/13/2023 3:33 PM EDT CONTINUE Actos 45 mg once daily REDUCE DOSE Instead of 1000 mg Metformin twice daily, you should decrease dose to 850 mg twice daily START 2.5 mg Glipizide If you develop dizziness, light headedness, sweating, nausea, shakiness check your blood sugar to see if you are dropping too low documented in this encounter 04-13-2023 History of Present illness Narrative SUBJECTIVE: [...] discussed risks, benefits, alternatives to restarting Glipizide Demetria and Yusuf are most comfortable restarting Glipizide We will [...] diabetes. Demetria must come to act as embalmer/funeral director, they decline embalmer/funeral director. Patients last HgbA1C was Hemoglobin A1C (%) Date Value 03/08/2023 7.6 10/21/2022 7.5 04/27/2022 7.1 10/12/2021 7.4 09/10/2020 6.7 01/24/2020 6.8 ). Last BP 04/13/23 : 125/63 03/29/23 : 150/71 03/17/23 : 146/67 CKD3 Creatinine Date Value Ref Range Status 03/09/2023 0.92 0.58 - 0.96 mg/dL Final Demetria as embalmer/funeral director Declines [facility] embalmer/funeral director Current Outpatient Medications on File Prior to Visit Medication Sig metFORMIN (GLUCOPHAGE) 1,000 mg tablet Take 1 tablet by mouth twice daily with meals. blood sugar diagnostic (ONETOUCH ULTRA TEST) test [...] mellitus, non-insulin dependent (NIDDM or type II) ([facility]) - ICD9: 250.00, ICD10: E11.9 [...] diabetes. Demetria must come to act as embalmer/funeral director, they decline embalmer/funeral director. - GLIPIZIDE ER 2.5 MG TABLET, EXTENDED RELEASE 24 HR 2. CKD stage 3 due to type 2 diabetes mellitus (HCC) - ICD9: 250.40, 585.3, ICD10: E11.22, N18.30 - Stable Willie Kaur APRN.MEDICAL MANAGEMENT SPECIALIST documented in this encounter 03-29-2023 Instructions Willie Kaur APRN.MEDICAL MANAGEMENT SPECIALIST - 03/29/2023 3:50 PM EDT Check blood sugar once per day Tuesday - check in morning Tuesday - check in evening Tuesday - check in morning Tuesday - check in evening - check in morning Tuesday - check in evening Tuesday - check in morning documented in this encounter 03-29-2023 History of Present illness Narrative SUBJECTIVE: Yusuf Medina is a 87 year old female who presents for 2 week evaluation and treatment of DM Sister in law Augustin acts as embalmer/funeral director, declines phone embalmer/funeral director 03/17/23 Family Medicine office visit Sister in [...] 171 Here with sister in law Demetria Since our last visit she denies excessive [...] BY MOUTH ONCE DAILY blood sugar diagnostic ([employer]CH ULTRA TEST) test strip Test blood sugar [...] months - METFORMIN 1,000 MG TABLET - [employer] Corporation[employer]CH ULTRA TEST STRIPS - BASIC METABOLIC PNL 2. Essential hypertension - ICD9: 401.9, ICD10: I10 - Fair control 3. CKD stage 3 due to type 2 diabetes mellitus (HCC) - ICD9: 250.40, 585.3, ICD10: E11.22, N18.30 - Check kidney function one month after increased dose Metformin. Keep close eye on kidney function - BASIC METABOLIC PNL Willie Kaur APRN.CNP documented in this encounter 03-24-2023 Miscellaneous Notes Called caregiver and went [...] overnight. Metformin won't. Called patient caregiver Demetria back. Demetria states that the patients blood sugar [...] like office to call her back at [phone] as soon as possible. Patient has been identified by name and birthdate. Duration of symptoms: N/A Person calling: caregiver: Demetria Call patient at: at home [phone] (home) [phone] (cell) Was an appointment scheduled: No Closing statement: Results or non-symptom based questions: Thank you for calling , your call will be returned within the next business day. Laura Hay Pss documented in this encounter 03-22-2023 Miscellaneous Notes Spoke with patient's caregiver, Demetria. Documented in nurse triage encounter from 03/18/23. Patient caregiver called back.She would like a call back at [phone] Thanks Left message to call the office back, may speak with any available triage nurse. Gabbie Melchor RN Demetria is calling on behalf of Yusuf. She has blood sugars readings to give and would like to speak to a nurse with the readings and any changed to meds. Please call her at [phone] documented in this encounter 03-17-2023 History of Present illness Narrative Transitional [...] Lymph 1.00 - 4.00 k/uL 0.71 (L) [place]on% % 5.7 Abs Fallon <0.87 k/uL 0.99 (H) Eosin% % 0.7 [...] Demetria prefers to not drive to [place] so she will try to reschedule this. - CONSULT TO SLEEP TECHNOLOGIST 3. Leukocytosis, unspecified type - ICD9: 288.60, ICD10: D72.829 - Resolved 4. Type 2 diabetes mellitus with stage 3 chronic kidney disease, without long-term current use of insulin ([facility]) - ICD9: 250.40, 585.3, ICD10: E11.22, N18.30 [...] 2023 2:20 PM documented in this encounter 03-10-2023 History of Present illness Narrative Noted Willie Kaur APRN.CNP TCM Home Visit Referral Source of Stratification: TCM [facility] Hospital Admission Status: Discharged Readmission Risk [...] new/worsening symptoms Confirmed PCP appt tomorrow Lien Hankins RN SUMMARY: Discharge Network Status: In-Network Discharge Pt discharged from [facility] on 03/09/23. Admitted for: Arthalgia Contact made with patient: Yes Hi my name is Lien Hankins RN and I am calling from the on behalf of your PCP, Migdalia Cramer [...] like to speak with a social work food court team member to help give you support [...] will send your request to a medical office scheduler who will contact and assist you [...] Ordered -: No documented in this encounter 03-07-2023 History of Past i llness Narrative [...] of this encounter (statuses as of 03/10/2023) 04-24-2023 History of Past illness Narrative* Problem Noted [...] of this encounter (statuses as of 03/19/2023) 04-24-2023 History of Past illness Narrative* Problem Noted [...] of this encounter (statuses as of 03/23/2023) 04-24-2023 History of Past illness Narrative* Problem Noted [...] of this encounter (statuses as of 03/24/2023) 04-24-2023 History of Past illness Narrative* Problem Noted [...] of this encounter (statuses as of 03/30/2023) 04-24-2023 History of Past illness Narrative* Problem Noted [...] of this encounter (statuses as of 04/14/2023) 04-24-2023 History of Past illness Narrative* Problem Noted [...] of this encounter (statuses as of 04/20/2023) 04-24-2023 History of Past illness Narrative* Problem Noted [...] of this encounter (statuses as of 04/20/2023) 04-24-2023 History of Past illness Narrative* Problem Noted [...] of this encounter (statuses as of 04/28/2023) 04-24-2023 History of Past illness Narrative* Problem Noted [...] of this encounter (statuses as of 05/16/2023) 04-24-2023 History of Past illness Narrative* Problem Noted [...] of this encounter (statuses as of 06/15/2023) 04-24-2023 History of Past illness Narrative* Problem Noted [...] of this encounter (statuses as of 06/23/2023) 04-24-2023 History of Past illness Narrative* Problem Noted [...] of this encounter (statuses as of 08/31/2023) 04-24-2023 History of Past illness Narrative* Problem Noted [...] of this encounter (statuses as of 09/06/2023) 04-24-2023 History of Past illness Narrative* Problem Noted [...] of this encounter (statuses as of 10/14/2023) 04-24-2023 History of Past illness Narrative* Problem Noted [...] of this encounter (statuses as of 01/12/2024) 04-24-2023 History of Past illness Narrative* Problem Noted [...] of this encounter (statuses as of 01/24/2024) 04-24-2023 History of Past illness Narrative* Problem Noted [...] of this encounter (statuses as of 02/01/2024) 04-24-2023 History of Past illness Narrative* Problem Noted [...] Chronic Pain service -Patient's niece and MARK Chicasie called Dr. Martines on 08/26/2015 to get [...] of this encounter (statuses as of 02/01/2024) 04-24-2023 History of Past illness Narrative* Problem Noted [...] of this encounter (statuses as of 02/29/2024) [place] [id number] Miscellaneous Notes* Telephone Encounter - [place] [...] advise. Jame Hernandez MA documented in this encounter03-08-2023 Miscellaneous Notes* Telephone Encounter - Willie Kaur [...] Allergies: Patient has no known allergies. (home) [phone] (cell) Reason for call: patient needs a refill on the following medications Disp Refills Start End blood sugar diagnostic (ONETOUCH ULTRA BLUE TEST STRIP) test strip 300 Strip 3 2019 Sig: USE DIRECTED TO TEST BLOOD SUGARS 3 TIMES A DAY Sent to pharmacy as: blood sugar diagnostic (ONETOUCH ULTRA BLUE TEST STRIP) test strip Class: Normal Order: [id number] E-Prescribing Status: Receipt confirmed by pharmacy (2019 10:20 AM EST) Please advise and make patient aware Thanks documented in this encounter02-14-2023 Miscellaneous Notes* Telephone Encounter - Willie Kaur APRN.CNP - 12/28/2022 12:58 PM EST The following approved medication requests have been transmitted electronically. Requested Prescriptions Signed Prescriptions Disp Refills meloxicam (MOBIC) 15 mg tablet 90 tablet 3 Sig: TAKE 1 TABLET BY MOUTH ONCE DAILY NEEDED FOR PAIN Authorizing Provider: WILLIE KAUR APRN.CNP * Telephone [...] advise. Sandrita Christianson LPN documented in this encounter12-10-2022 History of Present illness Narrative* Migdalia Cramer [...] exam Declines vaccines BMP and A1c in May Return to office in 6 months for follow-up. Migdalia Cramer MD documented in this encounter11-21-2022 Miscellaneous Notes* Telephone Encounter - Willie Kaur [...] advise. Sandrita Christianson LPN documented in this encounter11-17-2022 Miscellaneous Notes* Telephone Encounter - Willie Kaur [...] Last office visit in this department: 05/08/2022 FOV-10/23/22 RX INSTRUCTIONS: Patient aware RX will be sent to pharmacy. No need to notify patient. Patient phones requesting refills as follows: Requested Prescriptions Pending Prescriptions Disp Refills lansoprazole (PREVACID) 30 mg capsule [Pharmacy Med Name: Lansoprazole 30 MG Oral Capsule Delayed Release] 90 capsule 3 Sig: TAKE 1 CAPSULE BY MOUTH ONCE DAILY Please review and advise. Sandrita Christianson LPN documented in this encounter10-04-2022 Miscellaneous Notes* Telephone Encounter - Agustina Hernandez [...] she only wants 14 days to local [facility] Pharmacy - I made a copy and corrected the amount. Then I entered her request for the mail order going to [facility]. Each is assigned to the correct Pharmacy . Patient aware RX will be sent to pharmacy. Please call Demetria once sent at [phone]. Jodi Perez documented in this encounter07-29-2022 Miscellaneous Notes* Telephone Encounter - Willie Kaur [...] his note. They should be able to corn picker a kit form [facility] lab. He also asked them to consider a diagnostic colonoscopy, which is not Cologuard. Willie Kaur APRN.CNP * Telephone Encounter - Sandrita Christianson LPN - 06/10/2022 9:56 AM EDT Fax received from [employer] that pt has not completed Cologuard that was ordered on 04/08/22. Fax scanned into pt's chart (according to chart, pt had diag occult blood exam on 04/27/22) Please advise Thank you documented in this encounter07-15-2022 Miscellaneous Notes* Telephone Encounter - Willie Kaur APRN.CNP - 05/28/2022 1:43 PM EDT Noted and agree. Short term supply sent The following approved medication requests have been transmitted electronically. Signed Prescriptions Disp Refills glipiZIDE (GLUCOTROL XL) 2.5 mg 24 hr tablet 30 tablet 0 Sig: Take 1 tablet by mouth once daily. DANIEL: No Authorizing Provider: WILLIE KAUR APRN.CNP * Telephone Encounter - Sandrita Christianson LPN - 05/28/2022 10:01 AM EDT Demetria called office back with questions- Is glipizide on mail order because she does not have any glipizide left? Structural Design Engineer then proceeded to ask questions regarding pioglitazone-is [...] send Short term supply of Glipizide to [facility] pharmacy- [address] (pended for provider). * Telephone Encounter - Sandrita Christianson LPN - 05/28/2022 9:24 AM EDT PSS received call from pt's behavioral health associate Demetria. Pt informed Demetria that she is [...] will call our office. documented in this encounter06-25-2022 History of Present illness Narrative* Migdalia Cramer [...] meds yet today Pt discharged from [facility] on 03/29/22. Admitted for: Pain in arms and legs with elevated white count and urinary tract infection Admitted to [facility] 03/23-03/26 and 03/26-03/29 (pain worsened and [...] BY MOUTH ONCE DAILY blood sugar diagnostic ([employer] ULTRA BLUE TEST STRIP) test strip USE [...] surrogates are brother Jesús and sister in law Augustin Migdalia Cramer MD documented in this encounter06-14-2022 History of Present illness Narrative* Katia Farooq [...] patient's care. Summary: Pt discharged from [facility] on 03/29/22. Admitted for: Pain in arms and legs with elevated white count and urinary tract infection Concerns: No concerns at this time. [employer] Lining plan for next outreach: No further follow up needed at this time. TCM outreach complete. Signature Katia Farooq RN April 27, 2022 documented in this encounter06-14-2022 Evaluation note* Diagnosis Hypertensive kidney disease with stage 3 chronic kidney disease, unspecified whether stage 3a or 3b CKD (HCC)- Primary documented in this encounter 06-13-2022 Miscellaneous Notes* Telephone Encounter - Cheryl Anders [...] 4:28 PM EDT Call placed to pt's behavioral health associate, Demetria. Informed her of the 2 blood work orders to have completed, & that pt [facility] when she goes for lab draw. Demetria also confirmed that they Did corn picker IFOBT but pt Having trouble going to [...] PA-C * Telephone Encounter - [facility] [place] - 04/26/2022 9:37 AM EDT Patient caregiver Demetria calling to ask about the lab order in patient chart regarding the follow up urine. She states patient received a bottle for her to hand carry her urine, is that correct? Or is it to be done when she arrives at the [facility]? And [facility] Demetria states when patient came in for labs she was told there were no orders and she does not want that to happen again. Call caregiver Demetria to discuss at [phone] documented in this encounter05-26-2022 Miscellaneous Notes* Telephone Encounter - Sandrita Christianson LPN - 04/08/2022 1:25 PM EDT Pt's POA/behavioral health associate Demetria notified & had no questions/concerns. * Telephone Encounter - Willie Kaur APRN.CNP - 04/08/2022 11:47 AM EDT Please notify patient that Cologuard has been ordered and [employer] will reach out toconfirm mailing address. Willie Mitsch, GENERAL [employer].MEDICAL MANAGEMENT SPECIALIST * Telephone Encounter - Yeimy Dubon - 04/08/2022 10:37 AM EDT Patient's behavioral health associate, Demetria is calling requesting the Cologuard kit. She is asking for the kit or prescription for the kit. Please return call at [phone] documented in this encounter05-21-2022 Instructions* Patient Instructions* Migdalia Cramer MD - [...] of March. Consider colonoscopy. documented in this encounter05-21-2022 History of Present illness Narrative* Migdalia Cramer [...] completed Yes SUMMARY: Pt discharged from [facility] on 03/29/22. Admitted for: Pain in arms and legs with elevated white count and urinary tract infection Admitted to [facility] 03/23-03/26 and 03/26-03/29 (pain worsened and [...] increased fatigue, less energy Pain today is 06/23, R arm ROS: (those not included in [...] of the right femoral acetabular joint with [id number] contact, subchondral sclerosis and marginal osteophytosis. Left [...] 04/03/2022 8:06 AM EDT documented in this encounter05-17-2022 Miscellaneous Notes* Telephone Encounter - Willie Kaur [...] up Willie Kaur APRN.CNP documented in this encounter05-17-2022 Miscellaneous Notes* Telephone Encounter - Willie Kaur APRN.CNP - 03/30/2022 10:53 AM EDT Noted and agree with OV Willie Kaur APRN.CNP * Telephone Encounter - Magnolia Johnson RN - 03/30/2022 10:17 AM EDT Spoke with patients disabilities caregiver Demetria. She had questions for the doctor [...] pain (volearen gel and lidocaine patches) and disabilities caregiver is not sure how long she should be using those (advised for now to continue until follow up appointment) Offered several appointments this week but her disabilities caregiver Demetria is having trouble getting her to [...] Assessment Questions Recently in the hospital. Pt disabilities caregiver wanted a follow up to discuss med changes and how to help with her pain more termite exterminator helper. Protocols used: INFORMATION ONLY CALL - NO [id number] * Telephone Encounter - Cinthia ZANA Guaman - 03/30/2022 9:16 AM EDT This morning Yusuf caregiver called with some concerns . She has had the patient in the ER two times in the last few days. She is experiencing all over painand would like more suggestions on how to help the patient . Please Advise Thanks documented in this encounter05-14-2022 History of Past illness Narrative* Problem Noted [...] of this encounter (statuses as of 03/30/2022) 05-14-2022 History of Past illness Narrative* Problem Noted [...] of this encounter (statuses as of 03/30/2022) 05-14-2022 History of Past illness Narrative* Problem Noted [...] of this encounter (statuses as of 04/03/2022) 05-14-2022 History of Past illness Narrative* Problem Noted [...] of this encounter (statuses as of 04/08/2022) 05-14-2022 History of Past illness Narrative* Problem Noted [...] of this encounter (statuses as of 04/26/2022) 05-14-2022 History of Past illness Narrative* Problem Noted [...] of this encounter (statuses as of 04/27/2022) 05-14-2022 History of Past illness Narrative* Problem Noted [...] of this encounter (statuses as of 05/08/2022) 05-14-2022 History of Past illness Narrative* Problem Noted [...] of this encounter (statuses as of 05/28/2022) 05-14-2022 History of Past illness Narrative* Problem Noted [...] of this encounter (statuses as of 06/11/2022) 05-14-2022 History of Past illness Narrative* Problem Noted [...] -MARK Huizar in Neurosurgery spoke with Dr. Maritnes as to whether patient requires expedited morphine [...] of this encounter (statuses as of 08/18/2022) 05-14-2022 History of Past illness Narrative* Problem Noted [...] of this encounter (statuses as of 09/30/2022) 05-14-2022 History of Past illness Narrative* Problem Noted [...] of this encounter (statuses as of 10/04/2022) 05-14-2022 History of Past illness Narrative* Problem Noted [...] of this encounter (statuses as of 11/15/2022) 05-14-2022 History of Past illness Narrative* Problem Noted [...] of this encounter (statuses as of 12/28/2022) 05-14-2022 History of Past illness Narrative* Problem Noted [...] of this encounter (statuses as of 01/20/2023) 05-14-2022 History of Past illness Narrative* Problem Noted [...] of this encounter (statuses as of 02/22/2023) 05-12-2022 Miscellaneous Notes* Telephone Encounter - Willie Kaur APRN.[facility] - 03/25/2022 11:55 AM EDT The following approved medication requests have been transmitted electronically. Signed Prescriptions Disp Refills glipiZIDE (GLUCOTROL XL) 2.5 mg 24 hr tablet 30 tablet 1 Sig: Take 1 tablet by mouth once daily. (local supply while waiting for mail order) Authorizing Provider: WILLIE KAUR APRN.CNP * Telephone Encounter - Aditi Perez - 03/23/2022 10:20 AM EDT [facility] is processing the script Tuesday and patient will be out of meds for about 2 weeks. Brother is calling to have a local pharmacy handle the discrepancy. * Telephone Encounter - Aditi Perez - 03/23/2022 10:18 AM EDT Pharmacy verified in [facility] Patient has been identified by name and [...] (136 lb 3.2 oz) Please advise. Aditi Perez documented in this encounter05-09-2022 Miscellaneous Notes* Telephone Encounter - Willie Kaur [...] and advise. Sangita Herring [place] [address]-15-2022 Miscellaneous Notes* Telephone Encounter - Agustina Hernandez [...] pain DANIEL: No Authorizing Provider: WILLIE KAUR APRN.CNP * Telephone Encounter - Tyesha Ruel Pss - 02/25/2022 3:33 PM EDT Patient's caregiver, Mercedes, stated she tried to refill patient's meloxicam, but [facility] told her itwas discontinued. Epic shows as discontinued. Please review and advise at [phone]. documented in this encounter02-22-2022 Miscellaneous Notes* Telephone Encounter - Lucinda Tapia [...] sent to the pharmacy. Please call patient's behavioral health associate at [phone] Daniel Holder documented in this encounter01-24-2022 NoteHome care referral received for patient. Attempted to reach via telephone, however no answer. Voicemail left for return call. [facility]01-21-2022 [facility] CONSULTATION YUSUF MEDINA CCE [id number] ICU NIGHAT PEN[place] [id number] REFERRING PHYSICIAN: CONSULTING PHYSICIAN: Gertrudis Beckford DO DATE OF CONSULTATION: 12/04/2021 CHIEF COMPLAINT: Status post fall. HISTORY OF PRESENT ILLNESS: This 85-year-old Ivorian woman was taking care of her 16 [...] 2 diabetes. SOCIAL HISTORY: Patient immigrated from [facility] with her by way of 10 years [...] included. 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 She had fallen. It is unknown [...] Last Charted Temp Rectal L 35.5degC (DEC 04:55) Heart Rate Peripheral H 106bpm (DEC 04:30) Resp Rate 18 br/min (DEC 04:) SBP 126 mmHg (DEC 04:) DBP L 48mmHg (DEC 04:) General: alert, no acute distress, lying in [...] levels of other ser (more content not included)...[facility]01-20-2022 NotePatient: YUSUF MEDINA Age: 85 years Sex: [...] Neurological no speech. Procedure FAST: done by me- no intraperitoneal fluid seen Impression and Plan found down, unknown mechanism, hypothermia Plan: warm, CT eval [facility]08-31-2021 History of Present illness Narrative* Giovanny Salmon RT(R) - 07/14/2021 8:45 AM EDT Radiology [...] IV DATA: Not applicable SIGNED BY: RT Judith(Kenan) July 14, 2021 9:01 AM documented in this encounter07-12-2017 History of Past illness Narrative* Problem Noted [...] of this encounter (statuses as of 02/18/2022) 07-12-2017 History of Past illness Narrative* Problem Noted [...] of this encounter (statuses as of 02/26/2022) 07-12-2017 History of Past illness Narrative* Problem Noted [...] of this encounter (statuses as of 03/22/2022) 07-12-2017 History of Past illness Narrative* Problem Noted [...] of this encounter (statuses as of 03/25/2022) Evaluation note* Diagnosis Type 2 diabetes mellitus with stage 3 chronic kidney disease, without long-term current use of insulin (HCC) DDD (degenerative disc disease), cervical Degeneration of cervical intervertebral disc [facility] Diagnosis DDD (degenerative disc disease), cervical Degeneration of cervical intervertebral disc [facility]* Diagnosis Essential hypertension Unspecified essential hypertension [facility]* Diagnosis Acute cystitis without [...] not elsewhere classified [facility]* Diagnosis Screening for colon cancer- Primary Special screening for malignant neoplasms, colon [facility]* Diagnosis Iron deficiency anemia, unspecified iron deficiency anemia type- Primary [facility]* Diagnosis Iron deficiency anemia, [...] kidney disease (HCC) [facility]* Diagnosis Gastroesophageal reflux disease without esophagitis Esophageal reflux [facility]* Diagnosis Type 2 diabetes mellitus with stage 3 chronic kidney disease, without long-term current use of insulin (HCC) [facility]* Diagnosis Diabetes mellitus, non-insulin [...] diabetes mellitus (HCC) [facility]* Diagnosis Diabetes mellitus, non-insulin dependent (NIDDM or type II) (HCC)- Primary [facility]* Diagnosis Essential hypertension Unspecified essential hypertension [facility]* Diagnosis Pain in both hands- Primary Pain in both wrists Pain in joint, forearm Leukocytosis, unspecified type Type 2 diabetes mellitus with stage 3 chronic kidney disease, without long-term current use of insulin, unspecified whether stage 3a or 3b CKD (HCC) Muscular deconditioning Muscular wasting and disuse atrophy, not elsewhere classified [facility]* Diagnosis Diabetes mellitus, non-insulin dependent (NIDDM or type II) (HCC)- Primary Essential hypertension Unspecified essential hypertension CKD stage 3 due to type 2 diabetes mellitus (HCC) [facility]* Diagnosis Diabetes mellitus, non-insulin dependent (NIDDM or type II) (HCC)- Primary CKD stage 3 due to type 2 diabetes mellitus (HCC) [facility]* Diagnosis Diabetes mellitus, non-insulin dependent (NIDDM or type II) (HCC) [facility]* Diagnosis Diabetes mellitus, non-insulin dependent (NIDDM or type II) (HCC) [facility]* Diagnosis Gastroesophageal reflux disease without esophagitis Esophageal reflux [facility]* Diagnosis Diabetes mellitus, non-insulin dependent (NIDDM or type II) (HCC)- Primary documented [facility] this encounter [facility]* Diagnosis Diabetes mellitus, non-insulin dependent (NIDDM or type II) (HCC) [facility]* Diagnosis Essential hypertension Unspecified essential hypertension [facility]* Diagnosis Essential hypertension Unspecified essential hypertension [facility]* Diagnosis Gastroesophageal reflux disease without esophagitis Esophageal reflux [facility]* Diagnosis Diabetes mellitus, non-insulin dependent (NIDDM or type II) (HCC)- Primary Hyperlipidemia associated with type 2 diabetes mellitus (HCC) (HCC) Essential hypertension Unspecified essential hypertension [facility]* Diagnosis Type 2 diabetes mellitus without retinopathy (HCC)- Primary Type II or unspecified type diabetes mellitus without mention of complication, not stated as uncontrolled Pseudophakia Lens replaced by other means [facility]* Diagnosis Type 2 diabetes mellitus with stage 3 chronic kidney disease, without long-term current use of insulin (HCC) [facility]* Diagnosis Diabetes mellitus, non-insulin dependent (NIDDM or type II) (HCC) [facility]* Diagnosis Essential hypertension- Primary [...] deficiency anemia type [facility]* Diagnosis Essential hypertension Unspecified essential hypertension [facility]* Diagnosis Generalized weakness- Primary Other malaise and fatigue Headache, unspecified headache type Leukocytosis, unspecified type CKD stage 3 due to type 2 diabetes mellitus (HCC) Normocytic anemia Anemia, unspecified Essential hypertension Unspecified essential hypertension Insomnia Insomnia, unspecified Arthralgia, unspecified joint [facility] Pain Generalized pain [facility]* Diagnosis Leukocytosis, unspecified type- Primary [facility]* Diagnosis Right ankle swelling Effusion of ankle and foot joint [facility]* Diagnosis Right ankle swelling- Primary Effusion of ankle and foot joint Closed nondisplaced fracture of right calcaneus, unspecified portion of calcaneus, initial encounter [facility] Diagnosis Right ankle swelling Effusion of ankle and foot joint [facility]* Diagnosis Pain in joint involving right ankle and foot [facility] Diagnosis Right ankle swelling Effusion of ankle and foot joint Closed nondisplaced fracture of right calcaneus, unspecified portion of calcaneus, initial encounter [facility] this [facility]* Diagnosis Leukocytosis, unspecified type- Primary Normocytic anemia Anemia, unspecified Right ankle swelling Effusion of ankle and foot joint Right ankle swelling Effusion of ankle and foot joint Right ankle swelling Effusion of ankle and foot joint [facility]* Diagnosis Medicare annual wellness [...] Leukocytosis, unspecified type [facility]* Diagnosis Right ankle swelling- Primary Effusion of ankle and foot joint Chronic pain of right ankle [facility]* Diagnosis Right ankle swelling Effusion of ankle and foot joint [facility]* Diagnosis Chronic pain of right ankle- Primary documented [facility] this encounter [facility]* Diagnosis Normocytic anemia- Primary Anemia, unspecified Leukocytosis, unspecified type documented in this encounter 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 note* Diagnosis Non-pressure chronic ulcer of right [...] kidney disease (HCC) [facility]* Diagnosis Pressure injury of right ankle, stage 3 (HCC)- Primary [facility]* Diagnosis Hyperlipidemia with target LDL less than 100 Other and unspecified hyperlipidemia documented in this encounter [facility] note* Diagnosis Leukocytosis, unspecified type- Primary Normocytic anemia Anemia, unspecified Vitamin B6 deficiency Cellulitis of right ankle documented in this encounter [facility] noteNo assessment information availableWMercy Health St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)- Primary Ulcer of ankle documented in this encounter [facility] for referral (narrative)* Diagnostic Procedure Only (Routine) - Closed Specialty Diagnoses / Procedures Referred By Alisa t Referred To Contact XR IMAGING Diagnoses Pain Procedures XR SHOULDER GENERAL 3V OR MORE AP/TRUE AP/OTHER LT X-RAY SHOULDER COMPLET [place] [address] [place] [address] [place] [address] [place] [address] Referral ID Status Reason Start Date Expiration Date V isits Requested Visits Authorized [id number] Closed Auto-Generate d Referral 07/09/2021 08/08/2022 1 1 [facility] for referral (narrative)* Diagnostic Procedure Only (Routine) - Closed Specialty Diagnoses / Procedures Referred By Contac t Referred To Contact XR IMAGING Diagnoses Right ankle swelling Procedures XR ANKLE GENERAL 3V AP/LAT/OBL RIGHT RADEX ANKLE COMPLETE MINIMUM 3 [place] [address] [address] [place] [id number] [place] [address] Referral ID Status Reason Start Date Expiration Date V isits Requested Visits Authorized [id number] Closed Auto-Generate d Referral 09/17/2024 10/17/2025 1 1 [facility] for referral (narrative)* Diagnostic Procedure Only (Urgent) - Closed Specialty Diagnoses / Procedures Referred By Contac t Referred To Contact US IMAGING Diagnoses Right ankle swelling Procedures US DVT LOWER RIGHT DUP-SCAN XTR VEINS UNILATERAL/LIMITED STUDY Grupo Mendez [place] [id number] [place] [address] [place] [address] Referral ID Status Reason Start Date Expiration Date V isits Requested Visits Authorized [id number] Closed Auto-Generate d Referral 09/18/2024 10/17/2025 1 1 [facility] for referral (narrative)* Diagnostic Procedure Only (Routine) - Closed Specialty Diagnoses / Procedures Referred By Contac t Referred To Contact XR IMAGING Diagnoses Right ankle swelling Procedures XR ANKLE GENERAL 3V AP/LAT/OBL RIGHT RADEX ANKLE COMPLETE MINIMUM 3 [place] [address] [phone] [place] [address] Referral ID Status Reason Start Date Expiration Date V isits Requested Visits Authorized [id number] Closed Auto-Generate d Referral 09/17/2024 10/17/2025 1 1 * Diagnostic Procedure Only (Urgent) - Closed Specialty Diagnoses / Procedures Referred By Contac t Referred To Contact US IMAGING Diagnoses Right ankle swelling Procedures US DVT LOWER RIGHT DUP-SCAN XTR VEINS UNILATERAL/[place] [address] [phone] [place] [address] Referral ID Status Reason Start Date Expiration Date V isits Requested Visits Authorized [id number] Closed Auto-Generate d Referral 09/18/2024 10/17/2025 1 1 Reason for referral (narrative)No reason for referral information availableWMercy Health St[facility] Work Phone: Reason for visit Narrative* Diagnostic Procedure Only (Routine) - Closed Specialty Diagnoses / Procedures Referred By Contac t Referred To Contact XR IMAGING Diagnoses Pain in joint involving right ankle and foot Procedures XR CALCANEUS 2V AXIAL/LAT RIGHT RADEX CALCANEUS MINIMUM 2 VIEWS Simone Kevin MD [address] [place] [address] [place] [address] Referral ID Status Reason Start Date Expiration Date V isits Requested Visits Authorized [id number] Closed Auto-Generate d Referral 09/19/2024 10/19/2025 1 1 Summary Purpose Family History No Family History Records FoundNo Family History Records FoundNo Family History Records FoundNo Family History Records Found Advance Directives No Advanced Directives Records FoundDocuments on File Type Date Recorded Patient Student Counselor Expl anation Advance Directive(s) 2024 10:00 AM [...] Documents on File Type Date Recorded Patient Student Counselor Expl anation Advance Directive(s) 08/28/2015 9:03 PM Date Activated Date Inactivated Comments 03/07/2023 4:44 AM 03/09/2023 7:53 PM Date Activated Date Inactivated Comments 03/24/2022 3:23 PM 03/26/2022 7:51 PM Latest Code Status on File Code Status Date Activated Date Inactivated Comments Full Code 03/24/2022 3:23 PM 03/26/2022 7:51 PM Full Code Order Discussed With: Patient Documents on File Type Date Recorded Patient Student Counselor Expl anation Advance Directive(s) Advance Directive(s) 05/19/2020 10:04 PM Advance Directive(s) 03/11/2017 1:34 PM Advance Directive(s) 12/10/2016 5:24 PM Advance Directive(s) 04/17/2016 11:22 AM Advance Directive(s) 08/28/2015 9:03 PM Documents on File Type Date Recorded Patient Student Counselor Expl anation Advance Directive(s) Advance Directive(s) 03/23/2022 11:09 PM Advance Directive(s) 05/19/2020 10:04 PM Advance Directive(s) 03/11/2017 1:34 PM Advance Directive(s) 12/10/2016 5:24 PM Advance Directive(s) 04/17/2016 11:22 AM Advance Directive(s) 08/28/2015 9:03 PM Latest Code Status on File Code Status Date Activated Date Inactivated Comments Full Code 03/24/2022 3:23 PM Documents on File Type Date Recorded Patient Student Counselor Expl anation Advance Directive(s) Advance Directive(s) 03/27/2022 12:20 AM Advance Directive(s) 03/23/2022 11:09 PM Advance Directive(s) 05/19/2020 10:04 PM Advance Directive(s) 03/11/2017 1:34 PM Advance Directive(s) 12/10/2016 5:24 PM Advance Directive(s) 04/17/2016 11:22 AM Advance Directive(s) 08/28/2015 9:03 PM Documents on File Type Date Recorded Patient Student Counselor Expl anation Advance Directive(s) 08/28/2015 9:03 PM [...] Referral Specialty Diagnoses / Procedures Referred By Alisa t Referred To Contact Ophthalmology Diagnoses Screening for diabetic retinopathy Procedures CONSULT TO OPHTHALMOLOGY OFFICE/OUTPATIENT [facility] 60-[place] [address] [place] [address] Referral ID Status Reason Start Date Expiration Date Visits Requested Visits Authorized [id number] Pending Review PCP Requested Referral 2 10/23/2023 1 1 Specialty Diagnoses / Procedures Referred By Contkika t Referred To Contact [facility] Diagnoses Muscular deconditioning Procedures CONSULT TO PHYSICAL THERAPY PHYSICAL THERAPY EVALUATION HIGH COMPLEX 45 MINS [facility], GENERAL FORECASTER.MEDICAL MANAGEMENT SPECIALIST [address] [place] [id number] [facility] [place] [address] [place] [address] Referral ID Status Reason Start Date Expiration Date Visits Requested Visits Authorized [id number] Pending Review Auto-Generat ed Referral 03/17/2023 03/16/2024 1 1 Specialty Diagnoses / Procedures Referred By Contac t Referred To Contact [facility] Diagnoses Pain in both hands Pain in both wrists Procedures CONSULT TO SLEEP TECHNOLOGIST OCCUPATIONAL THERAPY EVAL HIGH COMPLEX 60 MINS Willie Kaur, GENERAL FORECASTER.MEDICAL MANAGEMENT SPECIALIST [address] [place] [id number] [facility] [place] [id number] [place] [address] Referral ID Status Reason Start Date Expiration Date Visits Requested Visits Authorized [id number] Pending Review Auto-Generat ed Referral 03/17/2023 03/16/2024 1 1 Specialty Diagnoses / Procedures Referred By Contac t Referred To Contact Diagnoses Leukocytosis, unspecified type Procedures CONSULT TO HEMATOLOGY/ONCOLOGY OFFICE/OUTPATIENT [facility] [address] [place] [address] [place] [address] Referral ID Status Reason Start Date Expiration Date Visits Requested Visits Authorized [id number] Authorized PCP Requested Referral 09/04/2025 1 1 Specialty Diagnoses / Procedures Referred By Contac t Referred To Contact Orthopedics Diagnoses Right ankle swelling Closed nondisplaced fracture of right calcaneus, unspecified portion of calcaneus, initial encounter Procedures CONSULT PANEL TO ORTHOPAEDICS OFFICE/OUTPATIENT [facility] [address] [place] [address] [place] [address] Referral ID Status Reason Start Date Expiration Date Visits Requested Visits Authorized [id number] Authorized PCP Requested Referral 09/18/2024 09/18/2025 1 1 Specialty Diagnoses / Procedures Referred By Contac t Referred To Contact MR IMAGING Diagnoses Chronic pain of right ankle Procedures MRI ANKLE WO IVCON RIGHT MRI ANY JT LOWER EXTREM W/O CONTRAST MATRL Simone Kevin MD [address] [place] [address] Mr [facility] [place] [address] Referral ID Status Reason Start Date Expiration Date Visits Requested Visits Authorized [id number] Authorized Auto-Generat ed Referral 12/01/2025 1 1 Specialty Diagnoses / Procedures Referred By Contac t Referred To Contact XR IMAGING Diagnoses Right ankle swelling Procedures XR FOOT GENERAL 3V AP/LAT/OBL RIGHT RADEX FOOT COMPLETE MINIMUM 3 VIEWS Simone Kevin MD [address] [place] [address] X[facility] Imaging [place] [address] Referral ID Status Reason Start Date Expiration Date V isits Requested Visits Authorized [id number] Closed Auto-Generate d Referral 11/01/2024 12/01/2025 1 1 Specialty Diagnoses / Procedures Referred By Contac t Referred To Contact XR IMAGING Diagnoses Right ankle swelling Procedures XR ANKLE GENERAL 3V AP/LAT/OBL RIGHT RADEX ANKLE COMPLETE MINIMUM 3 VIEWS Simone Kevin MD [address] [place] [address] X[facility] [place] [address] Referral ID Status Reason Start Date Expiration Date V isits Requested Visits Authorized [id number] Closed Auto-Generate d Referral 11/01/2024 12/01/2025 1 1 Referral ID Status Reason Start Date Expiration Date V isits Requested Visits Authorized [id number] Closed Auto-Generate d Referral 11/01/2024 12/01/2025 1 1 Chief Complaint and Reason for Visit Chief Complaint Admit Date LAB WORK December 17, 2024 4 :00am LAB WORK December 24, 2024 4:00am LABWORK 2024 5:00am LABWORK January 07, 2025 5:00am CUSTODIAL LAB WORK January 15, 2025 5: 00am Chief Complaint Admit Date LAB WORK December 17, 2024 4 :00am LAB WORK December 24, 2024 4:00am LABWORK 2024 5:00am LABWORK January 07, 2025 5:00am CUSTODIAL LAB WORK January 15, 2025 5: 00am CUSTODIAL LAB WORK February 04, 2025 5 :00am Chief Complaint Admit Date LAB WORK December 17, 2024 4 :00am LAB WORK December 24, 2024 4:00am LABWORK 2024 5:00am LABWORK January 07, 2025 5:00am CUSTODIAL LAB WORK January 15, 2025 5: 00am CUSTODIAL LAB WORK February 04, 2025 5 :00am CUSTODIAL LAB WORK March 04, 2025 5 :00am Chief Complaint Admit Date LAB WORK December 24, 2024 4:00am LABWORK 2024 5:00am LABWORK January 07, 2025 5:00am CUSTODIAL LAB WORK January 15, 2025 5: 00am CUSTODIAL LAB WORK February 04, 2025 5 :00am CUSTODIAL LAB WORK March 04, 2025 5 :00am CUSTODIAL LAB WORK March 12, 2025 4 :00am LABWORK April 01, 2025 5:00a m Chief Complaint Admit Date LAB WORK December 24, 2024 4:00am LABWORK 2024 5:00am LABWORK January 07, 2025 5:00am CUSTODIAL LAB WORK January 15, 2025 5: 00am CUSTODIAL LAB WORK February 04, 2025 5 :00am CUSTODIAL LAB WORK March 04, 2025 5 :00am CUSTODIAL LAB WORK March 12, 2025 4 :00am Additional Source Comments INFORMATION SOURCE (unrecogn ized section and content) DATE CREATED AUTHOR 12/10/2021 [facility] DATE CREATED AUTHOR AUTHOR'S ORGANIZ ATION 02/16/2025 [facility] DATE CREATED AUTHOR AUTHOR'S ORGANIZ ATION 05/05/2025 [facility] DATE CREATED AUTHOR AUTHOR'S ORGANIZ ATION 05/26/2025 [facility] Source Comments (unrecognize d section and content) In the event this informatio n is protected by the Federal Confidentiality of Alcohol and Drug Abuse Patient Records regulations: The Federal rules restrict any use of the information to criminally investigate or prosecute any alcohol or drug abuse patient.In the event this information is protected by the Federal Confidentiality of Alcohol and Drug Abuse Patient Records regulations: The Federal rules restrict any use of the information to criminally investigate or prosecute any alcohol or drug abuse patient.In the event this information is protected by the Federal Confidentiality of Alcohol and Drug Abuse Patient Records regulations: The Federal rules restrict any use of the information to criminally investigate or prosecute any alcohol or drug abuse patient.In the event this information is protected by the Federal Confidentiality of Alcohol and Drug Abuse Patient Records regulations: The Federal rules restrict any use of the information to criminally investigate or prosecute any alcohol or drug abuse patient.In the event this information is protected by the Federal Confidentiality of Alcohol and Drug Abuse Patient Records regulations: The Federal rules restrict any use of the information to criminally investigate or prosecute any alcohol or drug abuse patient.In the event this information is protected by the Federal Confidentiality of Alcohol and Drug Abuse Patient Records regulations: The Federal rules restrict any use of the information to criminally investigate or prosecute any alcohol or drug abuse patient.In the event this information is protected by the Federal Confidentiality of Alcohol and Drug Abuse Patient Records regulations: The Federal rules restrict any use of the information to criminally investigate or prosecute any alcohol or drug abuse patient.In the event this information is protected by the Federal Confidentiality of Alcohol and Drug Abuse Patient Records regulations: The Federal rules restrict any use of the information to criminally investigate or prosecute any alcohol or drug abuse patient.In the event this information is protected by the Federal Confidentiality of Alcohol and Drug Abuse Patient Records regulations: The Federal rules restrict any use of the information to criminally investigate or prosecute any alcohol or drug abuse patient.In the event this information is protected by the Federal Confidentiality of Alcohol and Drug Abuse Patient Records regulations: The Federal rules restrict any use of the information to criminally investigate or prosecute any alcohol or drug abuse patient.In the event this information is protected by the Federal Confidentiality of Alcohol and Drug Abuse Patient Records regulations: The Federal rules restrict any use of the information to criminally investigate or prosecute any alcohol or drug abuse patient.In the event this information is protected by the Federal Confidentiality of Alcohol and Drug Abuse Patient Records regulations: The Federal rules restrict any use of the information to criminally investigate or prosecute any alcohol or drug abuse patient.In the event this information is protected by the Federal Confidentiality of Alcohol and Drug Abuse Patient Records regulations: The Federal rules restrict any use of the information to criminally investigate or prosecute any alcohol or drug abuse patient.In the event this information is protected by the Federal Confidentiality of Alcohol and Drug Abuse Patient Records regulations: The Federal rules restrict any use of the information to criminally investigate or prosecute any alcohol or drug abuse patient.In the event this information is protected by the Federal Confidentiality of Alcohol and Drug Abuse Patient Records regulations: The Federal rules restrict any use of the information to criminally investigate or prosecute any alcohol or drug abuse patient.In the event this information is protected by the Federal Confidentiality of Alcohol and Drug Abuse Patient Records regulations: The Federal rules restrict any use of the information to criminally investigate or prosecute any alcohol or drug abuse patient.In the event this information is protected by the Federal Confidentiality of Alcohol and Drug Abuse Patient Records regulations: The Federal rules restrict any use of the information to criminally investigate or prosecute any alcohol or drug abuse patient.In the event this information is protected by the Federal Confidentiality of Alcohol and Drug Abuse Patient Records regulations: The Federal rules restrict any use of the information to criminally investigate or prosecute any alcohol or drug abuse patient.In the event this information is protected by the Federal Confidentiality of Alcohol and Drug Abuse Patient Records regulations: The Federal rules restrict any use of the information to criminally investigate or prosecute any alcohol or drug abuse patient.In the event this information is protected by the Federal Confidentiality of Alcohol and Drug Abuse Patient Records regulations: The Federal rules restrict any use of the information to criminally investigate or prosecute any alcohol or drug abuse patient.In the event this information is protected by the Federal Confidentiality of Alcohol and Drug Abuse Patient Records regulations: The Federal rules restrict any use of the information to criminally investigate or prosecute any alcohol or drug abuse patient.In the event this information is protected by the Federal Confidentiality of Alcohol and Drug Abuse Patient Records regulations: The Federal rules restrict any use of the information to criminally investigate or prosecute any alcohol or drug abuse patient.In the event this information is protected by the Federal Confidentiality of Alcohol and Drug Abuse Patient Records regulations: The Federal rules restrict any use of the information to criminally investigate or prosecute any alcohol or drug abuse patient.In the event this information is protected by the Federal Confidentiality of Alcohol and Drug Abuse Patient Records regulations: The Federal rules restrict any use of the information to criminally investigate or prosecute any alcohol or drug abuse patient.In the event this information is protected by the Federal Confidentiality of Alcohol and Drug Abuse Patient Records regulations: The Federal rules restrict any use of the information to criminally investigate or prosecute any alcohol or drug abuse patient.In the event this information is protected by the Federal Confidentiality of Alcohol and Drug Abuse Patient Records regulations: The Federal rules restrict any use of the information to criminally investigate or prosecute any alcohol or drug abuse patient.In the event this information is protected by the Federal Confidentiality of Alcohol and Drug Abuse Patient Records regulations: The Federal rules restrict any use of the information to criminally investigate or prosecute any alcohol or drug abuse patient.In the event this information is protected by the Federal Confidentiality of Alcohol and Drug Abuse Patient Records regulations: The Federal rules restrict any use of the information to criminally investigate or prosecute any alcohol or drug abuse patient.In the event this information is protected by the Federal Confidentiality of Alcohol and Drug Abuse Patient Records regulations: The Federal rules restrict any use of the information to criminally investigate or prosecute any alcohol or drug abuse patient.In the event this information is protected by the Federal Confidentiality of Alcohol and Drug Abuse Patient Records regulations: The Federal rules restrict any use of the information to criminally investigate or prosecute any alcohol or drug abuse patient.In the event this information is protected by the Federal Confidentiality of Alcohol and Drug Abuse Patient Records regulations: The Federal rules restrict any use of the information to criminally investigate or prosecute any alcohol or drug abuse patient.In the event this information is protected by the Federal Confidentiality of Alcohol and Drug Abuse Patient Records regulations: The Federal rules restrict any use of the information to criminally investigate or prosecute any alcohol or drug abuse patient.In the event this information is protected by the Federal Confidentiality of Alcohol and Drug Abuse Patient Records regulations: The Federal rules restrict any use of the information to criminally investigate or prosecute any alcohol or drug abuse patient.In the event this information is protected by the Federal Confidentiality of Alcohol and Drug Abuse Patient Records regulations: The Federal rules restrict any use of the information to criminally investigate or prosecute any alcohol or drug abuse patient.In the event this information is protected by the Federal Confidentiality of Alcohol and Drug Abuse Patient Records regulations: The Federal rules restrict any use of the information to criminally investigate or prosecute any alcohol or drug abuse patient.In the event this information is protected by the Federal Confidentiality of Alcohol and Drug Abuse Patient Records regulations: The Federal rules restrict any use of the information to criminally investigate or prosecute any alcohol or drug abuse patient.In the event this information is protected by the Federal Confidentiality of Alcohol and Drug Abuse Patient Records regulations: The Federal rules restrict any use of the information to criminally investigate or prosecute any alcohol or drug abuse patient.In the event this information is protected by the Federal Confidentiality of Alcohol and Drug Abuse Patient Records regulations: The Federal rules restrict any use of the information to criminally investigate or prosecute any alcohol or drug abuse patient.In the event this information is protected by the Federal Confidentiality of Alcohol and Drug Abuse Patient Records regulations: The Federal rules restrict any use of the information to criminally investigate or prosecute any alcohol or drug abuse patient.In the event this information is protected by the Federal Confidentiality of Alcohol and Drug Abuse Patient Records regulations: The Federal rules restrict any use of the information to criminally investigate or prosecute any alcohol or drug abuse patient.In the event this information is protected by the Federal Confidentiality of Alcohol and Drug Abuse Patient Records regulations: The Federal rules restrict any use of the information to criminally investigate or prosecute any alcohol or drug abuse patient.In the event this information is protected by the Federal Confidentiality of Alcohol and Drug Abuse Patient Records regulations: The Federal rules restrict any use of the information to criminally investigate or prosecute any alcohol or drug abuse patient.In the event this information is protected by the Federal Confidentiality of Alcohol and Drug Abuse Patient Records regulations: The Federal rules restrict any use of the information to criminally investigate or prosecute any alcohol or drug abuse patient.In the event this information is protected by the Federal Confidentiality of Alcohol and Drug Abuse Patient Records regulations: The Federal rules restrict any use of the information to criminally investigate or prosecute any alcohol or drug abuse patient.In the event this information is protected by the Federal Confidentiality of Alcohol and Drug Abuse Patient Records regulations: The Federal rules restrict any use of the information to criminally investigate or prosecute any alcohol or drug abuse patient.In the event this information is protected by the Federal Confidentiality of Alcohol and Drug Abuse Patient Records regulations: The Federal rules restrict any use of the information to criminally investigate or prosecute any alcohol or drug abuse patient.In the event this information is protected by the Federal Confidentiality of Alcohol and Drug Abuse Patient Records regulations: The Federal rules restrict any use of the information to criminally investigate or prosecute any alcohol or drug abuse patient.In the event this information is protected by the Federal Confidentiality of Alcohol and Drug Abuse Patient Records regulations: The Federal rules restrict any use of the information to criminally investigate or prosecute any alcohol or drug abuse patient.In the event this information is protected by the Federal Confidentiality of Alcohol and Drug Abuse Patient Records regulations: The Federal rules restrict any use of the information to criminally investigate or prosecute any alcohol or drug abuse patient.In the event this information is protected by the Federal Confidentiality of Alcohol and Drug Abuse Patient Records regulations: The Federal rules restrict any use of the information to criminally investigate or prosecute any alcohol or drug abuse patient.In the event this information is protected by the Federal Confidentiality of Alcohol and Drug Abuse Patient Records regulations: The Federal rules restrict any use of the information to criminally investigate or prosecute any alcohol or drug abuse patient.In the event this information is protected by the Federal Confidentiality of Alcohol and Drug Abuse Patient Records regulations: The Federal rules restrict any use of the information to criminally investigate or prosecute any alcohol or drug abuse patient.In the event this information is protected by the Federal Confidentiality of Alcohol and Drug Abuse Patient Records regulations: The Federal rules restrict any use of the information to criminally investigate or prosecute any alcohol or drug abuse patient.In the event this information is protected by the Federal Confidentiality of Alcohol and Drug Abuse Patient Records regulations: The Federal rules restrict any use of the information to criminally investigate or prosecute any alcohol or drug abuse patient.In the event this information is protected by the Federal Confidentiality of Alcohol and Drug Abuse Patient Records regulations: The Federal rules restrict any use of the information to criminally investigate or prosecute any alcohol or drug abuse patient.In the event this information is protected by the Federal Confidentiality of Alcohol and Drug Abuse Patient Records regulations: The Federal rules restrict any use of the information to criminally investigate or prosecute any alcohol or drug abuse patient.In the event this information is protected by the Federal Confidentiality of Alcohol and Drug Abuse Patient Records regulations: The Federal rules restrict any use of the information to criminally investigate or prosecute any alcohol or drug abuse patient.In the event this information is protected by the Federal Confidentiality of Alcohol and Drug Abuse Patient Records regulations: The Federal rules restrict any use of the information to criminally investigate or prosecute any alcohol or drug abuse patient.In the event this information is protected by the Federal Confidentiality of Alcohol and Drug Abuse Patient Records regulations: The Federal rules restrict any use of the information to criminally investigate or prosecute any alcohol or drug abuse patient.In the event this information is protected by the Federal Confidentiality of Alcohol and Drug Abuse Patient Records regulations: The Federal rules restrict any use of the information to criminally investigate or prosecute any alcohol or drug abuse patient.In the event this information is protected by the Federal Confidentiality of Alcohol and Drug Abuse Patient Records regulations: The Federal rules restrict any use of the information to criminally investigate or prosecute any alcohol or drug abuse patient.In the event this information is protected by the Federal Confidentiality of Alcohol and Drug Abuse Patient Records regulations: The Federal rules restrict any use of the information to criminally investigate or prosecute any alcohol or drug abuse patient.In the event this information is protected by the Federal Confidentiality of Alcohol and Drug Abuse Patient Records regulations: The Federal rules restrict any use of the information to criminally investigate or prosecute any alcohol or drug abuse patient.In the event this information is protected by the Federal Confidentiality of Alcohol and Drug Abuse Patient Records regulations: The Federal rules restrict any use of the information to criminally investigate or prosecute any alcohol or drug abuse patient.In the event this information is protected by the Federal Confidentiality of Alcohol and Drug Abuse Patient Records regulations: The Federal rules restrict any use of the information to criminally investigate or prosecute any alcohol or drug abuse patient.In the event this information is protected by the Federal Confidentiality of Alcohol and Drug Abuse Patient Records regulations: The Federal rules restrict any use of the information to criminally investigate or prosecute any alcohol or drug abuse patient.In the event this information is protected by the Federal Confidentiality of Alcohol and Drug Abuse Patient Records regulations: The Federal rules restrict any use of the information to criminally investigate or prosecute any alcohol or drug abuse patient.In the event this information is protected by the Federal Confidentiality of Alcohol and Drug Abuse Patient Records regulations: The Federal rules restrict any use of the information to criminally investigate or prosecute any alcohol or drug abuse patient.In the event this information is protected by the Federal Confidentiality of Alcohol and Drug Abuse Patient Records regulations: The Federal rules restrict any use of the information to criminally investigate or prosecute any alcohol or drug abuse patient.In the event this information is protected by the Federal Confidentiality of Alcohol and Drug Abuse Patient Records regulations: The Federal rules restrict any use of the information to criminally investigate or prosecute any alcohol or drug abuse patient.In the event this information is protected by the Federal Confidentiality of Alcohol and Drug Abuse Patient Records regulations: The Federal rules restrict any use of the information to criminally investigate or prosecute any alcohol or drug abuse patient.In the event this information is protected by the Federal Confidentiality of Alcohol and Drug Abuse Patient Records regulations: The Federal rules restrict any use of the information to criminally investigate or prosecute any alcohol or drug abuse patient.In the event this information is protected by the Federal Confidentiality of Alcohol and Drug Abuse Patient Records regulations: The Federal rules restrict any use of the information to criminally investigate or prosecute any alcohol or drug abuse patient.In the event this information is protected by the Federal Confidentiality of Alcohol and Drug Abuse Patient Records regulations: The Federal rules restrict any use of the information to criminally investigate or prosecute any alcohol or drug abuse patient.In the event this information is protected by the Federal Confidentiality of Alcohol and Drug Abuse Patient Records regulations: The Federal rules restrict any use of the information to criminally investigate or prosecute any alcohol or drug abuse patient.In the event this information is protected by the Federal Confidentiality of Alcohol and Drug Abuse Patient Records regulations: The Federal rules restrict any use of the information to criminally investigate or prosecute any alcohol or drug abuse patient.In the event this information is protected by the Federal Confidentiality of Alcohol and Drug Abuse Patient Records regulations: The Federal rules restrict any use of the information to criminally investigate or prosecute any alcohol or drug abuse patient.In the event this information is protected by the Federal Confidentiality of Alcohol and Drug Abuse Patient Records regulations: The Federal rules restrict any use of the information to criminally investigate or prosecute any alcohol or drug abuse patient.In the event this information is protected by the Federal Confidentiality of Alcohol and Drug Abuse Patient Records regulations: The Federal rules restrict any use of the information to criminally investigate or prosecute any alcohol or drug abuse patient.In the event this information is protected by the Federal Confidentiality of Alcohol and Drug Abuse Patient Records regulations: The Federal rules restrict any use of the information to criminally investigate or prosecute any alcohol or drug abuse patient.In the event this information is protected by the Federal Confidentiality of Alcohol and Drug Abuse Patient Records regulations: The Federal rules restrict any use of the information to criminally investigate or prosecute any alcohol or drug abuse patient.In the event this information is protected by the Federal Confidentiality of Alcohol and Drug Abuse Patient Records regulations: The Federal rules restrict any use of the information to criminally investigate or prosecute any alcohol or drug abuse patient.In the event this information is protected by the Federal Confidentiality of Alcohol and Drug Abuse Patient Records regulations: The Federal rules restrict any use of the information to criminally investigate or prosecute any alcohol or drug abuse patient.In the event this information is protected by the Federal Confidentiality of Alcohol and Drug Abuse Patient Records regulations: The Federal rules restrict any use of the information to criminally investigate or prosecute any alcohol or drug abuse patient.In the event this information is protected by the Federal Confidentiality of Alcohol and Drug Abuse Patient Records regulations: The Federal rules restrict any use of the information to criminally investigate or prosecute any alcohol or drug abuse patient.In the event this information is protected by the Federal Confidentiality of Alcohol and Drug Abuse Patient Records regulations: The Federal rules restrict any use of the information to criminally investigate or prosecute any alcohol or drug abuse patient.In the event this information is protected by the Federal Confidentiality of Alcohol and Drug Abuse Patient Records regulations: The Federal rules restrict any use of the information to criminally investigate or prosecute any alcohol or drug abuse patient.In the event this information is protected by the Federal Confidentiality of Alcohol and Drug Abuse Patient Records regulations: The Federal rules restrict any use of the information to criminally investigate or prosecute any alcohol or drug abuse patient.In the event this information is protected by the Federal Confidentiality of Alcohol and Drug Abuse Patient Records regulations: The Federal rules restrict any use of the information to criminally investigate or prosecute any alcohol or drug abuse patient.In the event this information is protected by the Federal Confidentiality of Alcohol and Drug Abuse Patient Records regulations: The Federal rules restrict any use of the information to criminally investigate or prosecute any alcohol or drug abuse patient. Reason for Visit (unrecogniz ed section and [...] Date Comments Population Health Navigation Outreach 03/13/2024 [facility] [place] [facility] Reason Comments Diabetic Eye Exam Reason Comments Follow Up Reason Onset Date Comments Fatigue 08/13/2024 Reason Comments Hospital Follow Up Reason Comments Radiology XR Specialty Diagnoses / Procedures Referred By Contac t Referred To Contact XR IMAGING Diagnoses Pain Procedures XR SHOULDER GENERAL 3V OR MORE AP/TRUE AP/OTHER LT X-RAY SHOULDER COMPLET [place] [address] [place] [address] [place] [address] [place] [address] Referral ID Status Reason Start Date Expiration Date V isits Requested Visits Authorized [id number] Closed Auto-Generate d Referral 07/09/2021 08/08/2022 1 1 Reason Comments Results Reason Comments Radio Gen RMP Radiology Service Pr ogress NotePATIENT NAME: Yusuf MedinaMRN: [id number] OF SERVICE: September 17, 2024TIME: 4:30 PMPATIENT [...] COMPLETE MINIMUM 3 [place] [address] [place] [address] [place] [address] Referral ID Status Reason Start Date Expiration Date V isits Requested Visits Authorized [id number] Closed Auto-Generate d Referral 09/17/2024 10/17/2025 1 1 Reason Comments Results Suspicion for calcan eal bone fracture Reason Comments Radiology US Specialty Diagnoses / Procedures Referred By Contac t Referred To Contact US IMAGING Diagnoses Right ankle swelling Procedures US DVT LOWER RIGHT DUP-SCAN XTR VEINS UNILATERAL/[place] [address] [place] [address] Us Imaging [facility] Referral ID Status Reason Start Date Expiration Date V isits Requested Visits Authorized [id number] Closed Auto-Generate d Referral 09/18/2024 10/17/2025 1 1 Reason Comments New 8/10 PAIN CONSTANT A ABEL Pain 8/10 PAIN CONSTANT A ABEL Specialty Diagnoses / Procedures Referred By Contac t Referred To Contact Orthopedics / ORTHOPAEDIC SURGERY Diagnoses Right ankle swelling Closed nondisplaced fracture of right calcaneus, unspecified portion of calcaneus, initial encounter Procedures CONSULT PANEL TO ORTHOPAEDICS OFFICE/OUTPATIENT [facility] [address] [place] [address] [place] [address] [facility] [address] [place] [address] Referral ID Status Reason Start Date Expiration Date V isits Requested Visits Authorized [id number] Closed PCP Requested Referral 09/18/2024 09/18/2025 1 1 Reason Comments Consult leukocytosis Specialty Diagnoses / Procedures Referred By Alisa t Referred To Contact Diagnoses Leukocytosis, unspecified type Procedures CONSULT TO HEMATOLOGY/ONCOLOGY OFFICE/OUTPATIENT [facility] [address] [place] [address] [place] [id number] Referral ID Status Reason Start Date Expiration Date V isits Requested Visits Authorized [id number] Closed PCP Requested Referral 09/04/2024 09/04/2025 1 1 Reason Comments Medicare Wellness Exam Reason Comments Follow Up Reason Comments Radio Gen RMP Radiology Service Pr ogress NotePATIENT NAME: Yusuf MedinaMRN: [id number] OF SERVICE: November 01, 2024TIME: 2:15 PMPATIENT [...] COMPLETE MINIMUM 3 VIEWS Simone Kevin MD [address] [place] [address] Xr Imaging [place] [address] Referral ID Status Reason Start Date Expiration Date V isits Requested Visits Authorized [id number] Closed Auto-Generate d Referral 11/01/2024 12/01/2025 1 1 Reason Comments infection on ankle Right ankle looks in fected Specialty Diagnoses / Procedures Referred By Alisa leavitt Referred To Contact MR IMAGING Diagnoses Chronic pain of right ankle Procedures MRI ANKLE WO IVCON RIGHT MRI ANY JT LOWER EXTREM W/O CONTRAST Simone Galindo MD [address] [place] [id number] [place] [address] Referral ID Status Reason Start Date Expiration Date V isits Requested Visits Authorized [id number] Closed Auto-Generate d Referral 11/01/2024 12/01/2025 1 [...] Care Teams (unrecognized sec tion and content) Strike Out Machine Operator Relationship Specialty [place] [address] [place] [address] PCP - General [facility] 10/05/10 Edenilson Townsend [address] [place] [address] Consulting Optometry 12/07/17 Strike Out Machine Operator Relationship Specialty [place] [address] [place] [address] PCP - [facility] 10/05/10 Edenilson Townsend [address] [place] [address] Consulting Optometry 12/07/17 Strike Out Machine Operator Relationship Specialty [place] [address] [place] [address] PCP - General Family [facility] 10/05/10 Edenilson Townsend [address] [facility] [place] [address] Consulting Optometry 12/07/17 Strike Out Machine Operator Relationship Specialty [place] [address] [place] [address] PCP - General Family Practice 10/05/10 Edenilson Townsend [address] [place] [address] Consulting Optometry 12/07/17 José Miguel Swanson, [facility] [address] [place] [address] Transitional Care Pharmacist Pharmacy 03/30/22 04/30/22 Katia Farooq, smocker Surg Nurse 03/30/22 04/29/22 Strike Out Machine Operator Relationship Specialty [place] [address] [place] [address] PCP - General Family Practice 10/05/10 Edenilson Townsend [address] [facility] [place] [address] Consulting Optometry 12/07/17 José Miguel Swanson, [facility] [address] [place] [address] Transitional Care Pharmacist Pharmacy 03/30/22 04/30/22 Katia Farooq, smocker Surg Nurse 03/30/22 04/29/22 Strike Out Machine Operator Relationship Specialty [place] [address] [place] [address] PCP - General Family Practice 10/05/10 Edenilson Townsend [address] [place] [address] Consulting Optometry 12/07/17 José Miguel Swanson, [facility] [address] [place] [address] Transitional Care Pharmacist Pharmacy 03/30/22 04/30/22 Katia Farooq, smocker Surg Nurse 03/30/22 04/29/22 Strike Out Machine Operator Relationship Specialty [place] [address] [place] [address] PCP - General Family Practice 10/05/10 Edenilson Townsend [address] [place] [address] Consulting Optometry 12/07/17 [facility] [address] [place] [address] Transitional Care Pharmacist Pharmacy 03/30/22 04/30/22 Katia Farooq, smocker Surg Nurse 03/30/22 04/29/22 Strike Out Machine Operator Relationship Specialty [place] [address] [place] [address] PCP - General Family Practice 10/05/10 Edenilson Townsend [address] [place] [address] Consulting Optometry 12/07/17 José Miguel Swanson, [facility] [address] [place] [address] Transitional Care Pharmacist Pharmacy 03/30/22 04/30/22 Katia Farooq, smocker Surg Nurse 03/30/22 04/29/22 Strike Out Machine Operator Relationship Specialty [place] [address] [place] [address] PCP - General Family Practice 10/05/10 Edenilson Townsend [address] [place] [address] Consulting Optometry 12/07/17 Strike Out Machine Operator Relationship Specialty [place] [address] [place] [address] PCP - General Family Practice 10/05/10 Edenilson Townsend [address] [place] [address] Consulting Optometry 12/07/17 Strike Out Machine Operator Relationship Specialty [place] [address] [place] [address] PCP - General Family Practice 10/05/10 Edenilson Townsend [address] [place] [address] Consulting Optometry 12/07/17 Strike Out Machine Operator Relationship Specialty [place] [address] [place] [address] PCP - General Family Medicine 10/05/10 Edenilson Townsend [address] [place] [address] Consulting Optometry 12/07/17 Strike Out Machine Operator Relationship Specialty [place] [address] [place] [address] PCP - General Family Medicine 10/05/10 Edenilson Townsend [address] [place] [address] Consulting Optometry 12/07/17 Strike Out Machine Operator Relationship Specialty [place] [address] [place] [address] PCP - General Family Medicine 10/05/10 Edenilson Townsend [address] [place] [address] Consulting Optometry 12/07/17 Strike Out Machine Operator Relationship Specialty [place] [address] [place] [address] PCP - General Family Medicine 10/05/10 Edenilson Townsend [address] [facility] [place] [address] Consulting Optometry 12/07/17 Strike Out Machine Operator Relationship Specialty [place] [address] [place] [address] PCP - General Family Medicine 10/05/10 Edenilson Townsend [address] [facility] [place] [address] Consulting Optometry 12/07/17 [place] [address] [place] [address] Primary Care Surg Nurse 03/10/23 04/08/23 Strike Out Machine Operator Relationship Specialty [place] [address] [place] [address] PCP - General Family Medicine 10/05/10 Edenilson Townsend [address] [facility] [place] [address] Consulting Optometry 12/07/17 [place] [address] [place] [address] Primary Care Surg Nurse 03/10/23 04/08/23 Strike Out Machine Operator Relationship Specialty [place] [address] [place] [address] PCP - General Family Medicine 10/05/10 Edenilson Townsend [address] [facility] [place] [address] Consulting Optometry 12/07/17 [place] [address] [place] [address] Primary Care Surg Nurse 03/10/23 04/08/23 Strike Out Machine Operator Relationship Specialty [place] [address] [place] [address] PCP - General Family Medicine 10/05/10 Edenilson Townsend [address] [facility] [place] [address] Consulting Optometry 12/07/17 [place] [address] [place] [address] Primary Care Surg Nurse 03/10/23 04/08/23 Strike Out Machine Operator Relationship Specialty [place] [address] [place] [address] PCP - General Family Medicine 10/05/10 Edenilson Townsend [address] [facility] [place] [address] Consulting Optometry 12/07/17 Strike Out Machine Operator Relationship Specialty Start [place] [address] [place] [address] PCP - General Family Medicine 10/05/10 Edenilson Townsend [address] [facility] [place] [address] Consulting Optometry 12/07/17 Strike Out Machine Operator Relationship Specialty Start [place] [address] [place] [address] PCP - General Family Medicine 10/05/10 Edenilson Townsend [address] [facility] [place] [address] Consulting Optometry 12/07/17 Strike Out Machine Operator Relationship Specialty [place] [address] [place] [address] PCP - General Family Medicine 10/05/10 Edenilson Townsend [address] [place] [address] Consulting Optometry 12/07/17 Strike Out Machine Operator Relationship Specialty [place] [address] [place] [address] PCP - General Family Medicine 10/05/10 Edenilson Townsend [address] [place] [address] Consulting Optometry 12/07/17 Strike Out Machine Operator Relationship Specialty [place] [address] [place] [address] PCP - General Family Medicine 10/05/10 Edenilson Townsend [address] [facility] [place] [address] Consulting Optometry 12/07/17 Strike Out Machine Operator Relationship Specialty [place] [address] [place] [address] PCP - General Family Medicine 10/05/10 Edenilson Townsend, CHETNA [address] [facility] [place] [address] Consulting Optometry 12/07/17 Strike Out Machine Operator Relationship Specialty [place] [address] [place] [address] PCP - General Family Medicine 10/05/10 Edenilson Townsend, CHETNA [address] [facility] [place] [address] Consulting Optometry 12/07/17 Strike Out Machine Operator Relationship Specialty [place] [address] [place] [address] PCP - General Family Medicine 10/05/10 Edenilson Townsend, OD [address] [place] [address] Consulting Optometry 12/07/17 Strike Out Machine Operator Relationship Specialty [place] [address] [place] [address] PCP - General Family Medicine 10/05/10 Edenilson Townsend, OD [address] [facility] [place] [address] Consulting Optometry 12/07/17 Strike Out Machine Operator Relationship Specialty Start [place] [address] [place] [address] PCP - General Family Medicine 10/05/10 Edenilson Townsend, OD [address] [facility] [place] [address] Consulting Optometry 12/07/17 Strike Out Machine Operator Relationship Specialty Start [place] [address] [place] [address] PCP - General Family Medicine 10/05/10 Edenilson Townsend, OD [address] [facility] [place] [address] Consulting Optometry 12/07/17 Strike Out Machine Operator Relationship Specialty Start [place] [address] [place] [address] PCP - General Family Medicine 10/05/10 [place]ilson Townsend [place] [address] [place] [address] Consulting Optometry 12/07/17 Strike Out Machine Operator Relationship Specialty Start [place] [address] [place] [address] PCP - General Family Medicine 10/05/10 Edenilson Townsend OD [address] [facility] [place] [address] Consulting Optometry 12/07/17 Strike Out Machine Operator Relationship Specialty Start [place] [address] [place] [address] PCP - General Family Medicine 10/05/10 Edenilson Townsend OD [address] [facility] [place] [address] Consulting Optometry 12/07/17 Strike Out Machine Operator Relationship Specialty Start [place] [address] [place] [address] PCP - General Family Medicine 10/05/10 Edenilson Townsend OD [address] [facility] [place] [address] Consulting Optometry 12/07/17 Strike Out Machine Operator Relationship Specialty Start [place] [address] [place] [address] PCP - General Family Medicine 10/05/10 Edenilson Townsend OD [address] [facility] [address] Consulting Optometry 12/07/17 Strike Out Machine Operator Relationship Specialty Start [place] [address] [place] [address] PCP - General Family Medicine 10/05/10 Edenilson Townsend, OD [address] [facility] [address] Consulting Optometry 12/07/17 Strike Out Machine Operator Relationship Specialty Start [place] [address] [place] [address] PCP - General Family Medicine 10/05/10 Edenilson Townsend, OD [address] [facility] [place] [address] Consulting Optometry 12/07/17 Strike Out Machine Operator Relationship Specialty Start [place] [address] [place] [address] PCP - General Family Medicine 10/05/10 Edenilson Townsend, OD [address] [facility] [address] Consulting Optometry 12/07/17 Strike Out Machine Operator Relationship Specialty Start [place] [address] [place] [address] PCP - General Family Medicine 10/05/10 Edenilson Townsend, OD [address] [facility] [address] Consulting Optometry 12/07/17 Strike Out Machine Operator Relationship Specialty Start [place] [address] [place] [address] PCP - General Family Medicine 10/05/10 Edenilson Townsend OD [address] [place] [address] Consulting Optometry 12/07/17 Strike Out Machine Operator Relationship Specialty [place] [address] [place] [address] PCP - General Family Medicine 10/05/10 Edenilson Townsend OD [address] [place] [address] Consulting Optometry 12/07/17 Strike Out Machine Operator Relationship Specialty Start [place] [address] [place] [address] PCP - General Family Medicine 10/05/10 Edenilson Townsend OD [address] [place] [address] Consulting Optometry 12/07/17 Strike Out Machine Operator Relationship Specialty [place] [address] [place] [address] PCP - General Family Medicine 10/05/10 Edenilson Townsend OD [address] [place] [address] Consulting Optometry 12/07/17 Strike Out Machine Operator Relationship Specialty [place] [address] [place] [address] PCP - General Family Medicine 10/05/10 Edenilson Townsend OD [address] [place] [address] Consulting Optometry 12/07/17 Cinthia Ponce GENERAL FORECASTER.MEDICAL MANAGEMENT SPECIALIST [address] [place] [address] Supervisor Vacuum Metalizing Family [facility] 10/21/24 Willie Kaur, GENERAL FORECASTER.MEDICAL MANAGEMENT SPECIALIST [address] [place] [address] Supervisor Vacuum Metalizing Family [facility] 10/21/24 Strike Out Machine Operator Relationship Specialty [place] [address] [place] [address] PCP - General Family Medicine 10/05/10 Edenilson Townsend [address] [place] [address] Consulting Optometry 12/07/17 Cinthia Ponce GENERAL FORECASTER.MEDICAL MANAGEMENT SPECIALIST [address] [place] [address] [facility] 10/21/24 Willie Kaur, GENERAL FORECASTER.MEDICAL MANAGEMENT SPECIALIST [address] [place] [address] [facility] 10/21/24 Strike Out Machine Operator Relationship Specialty Start [place] [address] [place] [address] PCP - General Family Medicine 10/05/10 Edenilson Townsend [address] [place] [address] Consulting Optometry 12/07/17 Cinthia Ponce GENERAL FORECASTER.MEDICAL MANAGEMENT SPECIALIST [address] [place] [address] Supervisor Vacuum Metalizing Family [facility] 10/21/24 Willie Kaur APRN.MEDICAL MANAGEMENT SPECIALIST [address] [place] [address] Supervisor Vacuum Metalizing Family Medicine 10/21/24 Strike Out Machine Operator Relationship Specialty Start Date End Date Migdalia Cramer MD [address] [place] [address] PCP - General Family Medicine 10/05/10 Edenilson Townsend OD [address] [place] [address] Consulting Optometry 12/07/17 Cinthia Ponce GENERAL FORECASTER.MEDICAL MANAGEMENT SPECIALIST [address] [place] [address] Supervisor Vacuum Metalizing Family Medicine 10/21/24 Willie Kaur, GENERAL FORECASTER.MEDICAL MANAGEMENT SPECIALIST [address] [place] [address] Supervisor Vacuum Metalizing Family Medicine 10/21/24 Strike Out Machine Operator Relationship Specialty [place] [address] [place] [address] PCP - General Family Medicine 10/05/10 Edenilson Townsend OD [address] [place] [address] Consulting Optometry 12/07/17 Cinthia Ponce GENERAL FORECASTER.MEDICAL MANAGEMENT SPECIALIST [address] [place] [address] Supervisor Vacuum Metalizing Family Medicine 10/21/24 Willie Kaur, GENERAL FORECASTER.MEDICAL MANAGEMENT SPECIALIST [address] [place] [address] Supervisor Vacuum Metalizing [facility] 10/21/24 Strike Out Machine Operator Relationship Specialty [place] [address] [place] [address] PCP - General Family Medicine 10/05/10 Edenilson Townsend, CHETNA [address] [place] [address] Consulting Optometry 12/07/17 Cinthia Ponce GENERAL FORECASTER.MEDICAL MANAGEMENT SPECIALIST [address] [place] [address] Supervisor Vacuum Metalizing [facility] 10/21/24 Willie Kaur, GENERAL FORECASTER.MEDICAL MANAGEMENT SPECIALIST [address] [place] [address] [facility] 10/[facility]/24 Strike Out Machine Operator Relationship Specialty [place] [address] [place] [address] PCP - General Family Medicine 10/05/10 Edenilson Townsend, CHETNA [address] [place] [address] Consulting Optometry 12/07/17 Cinthia Ponce GENERAL FORECASTER.MEDICAL MANAGEMENT SPECIALIST [address] [place] [address] Supervisor Vacuum Metalizing Family Medicine 10/21/24 Willie Kaur GENERAL FORECASTER.MEDICAL MANAGEMENT SPECIALIST [address] [place] [place] [address] Supervisor Vacuum Metalizing Family [facility] 10/21/24 Strike Out Machine Operator Relationship Specialty [place] [address] [place] [address] PCP - General Family Medicine 10/05/10 Edenilson Townsend, OD [address] [place] [address] Consulting Optometry 12/07/17 Cinthia Ponce, GENERAL FORECASTER.MEDICAL MANAGEMENT SPECIALIST [address] [place] [address] Supervisor Vacuum Metalizing Family [facility] 10/21/24 Willie Kaur, GENERAL FORECASTER.MEDICAL MANAGEMENT SPECIALIST [address] [place] [address] Supervisor Vacuum Metalizing Family [facility] 10/21/24 Strike Out Machine Operator Relationship Specialty [place] [address] [place] [address] PCP - General Family Medicine 10/05/10 Edenilson Townsend, OD [address] [place] [address] Consulting Optometry 12/07/17 Cinthia Ponce, GENERAL FORECASTER.MEDICAL MANAGEMENT SPECIALIST [address] [place] [address] Supervisor Vacuum Metalizing Family [facility] 10/21/24 Willie Kaur, GENERAL FORECASTER.MEDICAL MANAGEMENT SPECIALIST [address] [place] [address] Supervisor Vacuum Metalizing Family [facility] 10/21/24 Strike Out Machine Operator Relationship Specialty [place] [address] [place] [address] PCP - General Family Medicine 10/05/10 Edenilson Townsend, OD [address] [place] [address] Consulting Optometry 12/07/17 Cinthia Ponce, GENERAL FORECASTER.MEDICAL MANAGEMENT SPECIALIST [address] [place] [address] Supervisor Vacuum Metalizing Family [facility] 10/21/24 Willie Kaur, GENERAL FORECASTER.MEDICAL MANAGEMENT SPECIALIST [address] [place] [address] Supervisor Vacuum Metalizing Family [facility] 10/21/24 Strike Out Machine Operator Relationship Specialty [place] [address] [place] [address] PCP - General Family Medicine 10/05/10 Edenilson Townsend, OD [address] [place] [address] Consulting Optometry 12/07/17 Cinthia Ponce, GENERAL FORECASTER.MEDICAL MANAGEMENT SPECIALIST [address] [place] [address] Supervisor Vacuum Metalizing Family [facility] 10/21/24 Willie Kaur GENERAL FORECASTER.MEDICAL MANAGEMENT SPECIALIST [address] [place] [address] Supervisor Vacuum Metalizing Family [facility] 10/21/24 Strike Out Machine Operator Relationship Specialty [place] [address] [place] [address] PCP - General Family Medicine 10/05/10 Edenilson Townsend, OD [address] [place] [address] Consulting Optometry 12/07/17 Cinthia Ponce, GENERAL FORECASTER.MEDICAL MANAGEMENT SPECIALIST [address] [place] [address] Supervisor Vacuum Metalizing Family [facility] 10/21/24 Willie Kaur, GENERAL FORECASTER.MEDICAL MANAGEMENT SPECIALIST [address] [place] [address] Supervisor Vacuum Metalizing Family [facility] 10/21/24 Strike Out Machine Operator Relationship Specialty [place] [address] [place] [address] PCP - General Family Medicine 10/05/10 Edenilson Townsned, CHETNA [address] [place] [address] Consulting Optometry 12/07/17 Cinthia Ponce, GENERAL FORECASTER.MEDICAL MANAGEMENT SPECIALIST [address] [place] [address] Supervisor Vacuum Metalizing Family [facility] 10/21/24 Willie Kaur, GENERAL FORECASTER.MEDICAL MANAGEMENT SPECIALIST [address] [place] [address] Supervisor Vacuum Metalizing Family [facility] 10/21/24 Strike Out Machine Operator Relationship Specialty [place] [address] [place] [address] PCP - General Family Medicine 10/05/10 Edenilson Townsend OD [address] [facility] [address] Consulting Optometry 12/07/17 Cinthia Ponce, GENERAL FORECASTER.MEDICAL MANAGEMENT SPECIALIST [address] [place] [address] Supervisor Vacuum Metalizing Family Medicine 10/21/24 Willie Kaur, GENERAL FORECASTER.MEDICAL MANAGEMENT SPECIALIST [address] [place] [address] Supervisor Vacuum Metalizing Family [facility] 10/21/24 Strike Out Machine Operator Relationship Specialty [place] [address] [place] [address] PCP - General Family Medicine 10/05/10 Edenilson Townsend OD [address] [place] [address] Consulting Optometry 12/07/17 Cinthia Ponce, GENERAL FORECASTER.MEDICAL MANAGEMENT SPECIALIST [address] [place] [address] Supervisor Vacuum Metalizing Family Medicine 10/21/24 Willie Kaur, GENERAL FORECASTER.MEDICAL MANAGEMENT SPECIALIST [address] [place] [address] Supervisor Vacuum Metalizing Family [facility] 10/21/24 Strike Out Machine Operator Relationship Specialty Start [place] [address] [place] [address] PCP - General Family Medicine 10/05/10 Edenilson Townsend OD [address] [place] [address] Consulting Optometry 12/07/17 Cinthia Ponce GENERAL FORECASTER.MEDICAL MANAGEMENT SPECIALIST [address] [place] [address] Supervisor Vacuum Metalizing Family Medicine 10/21/24 Willie Kaur, GENERAL FORECASTER.MEDICAL MANAGEMENT SPECIALIST [address] [place] [address] Supervisor Vacuum Metalizing Family Medicine 10/21/24 Strike Out Machine Operator Relationship Specialty Start [place] [address] [place] [address] PCP - General Family Medicine 10/05/10 Edenilson Townsend, OD [address] [place] [address] Consulting Optometry 12/07/17 Cinthia Ponce, GENERAL FORECASTER.MEDICAL MANAGEMENT SPECIALIST [address] [place] [address] Supervisor Vacuum Metalizing Family Medicine 10/21/24 Willie Kaur, GENERAL FORECASTER.MEDICAL MANAGEMENT SPECIALIST [address] [place] [address] Supervisor Vacuum Metalizing Family [facility] 10/21/24 Strike Out Machine Operator Relationship Specialty Start [place] [address] [place] [address] PCP - General Family Medicine 10/05/10 Edenilson Townsend, OD [address] [place] [address] Consulting Optometry 12/07/17 Cinthia Ponce GENERAL FORECASTER.MEDICAL MANAGEMENT SPECIALIST [address] [place] [address] Supervisor Vacuum Metalizing Family [facility] 10/21/24 Willie Kaur APRN.MEDICAL MANAGEMENT SPECIALIST [address] [facility] [address] Supervisor Vacuum Metalizing Family Medicine 10/21/24 Strike Out Machine Operator Relationship Specialty Start [place] [address] [place] [address] PCP - General Family Medicine 10/05/10 Edenilson Townsend OD [address] [place] [address] Consulting Optometry 12/07/17 Cinthia Ponce GENERAL FORECASTER.MEDICAL MANAGEMENT SPECIALIST [address] [place] [address] Supervisor Vacuum Metalizing Family Medicine 10/21/24 Willie Kaur GENERAL FORECASTER.MEDICAL MANAGEMENT SPECIALIST [address] [place] [address] Supervisor Vacuum Metalizing Family [facility] 10/21/24 Strike Out Machine Operator Relationship Specialty [place] [address] [place] [address] PCP - General Family Medicine 10/05/10 Edenilson Townsend OD [address] [place] [address] Consulting Optometry 12/07/17 Cinthia Ponce GENERAL FORECASTER.MEDICAL MANAGEMENT SPECIALIST [address] [place] [address] Supervisor Vacuum Metalizing Family [facility] 10/21/24 Willie Kaur, GENERAL FORECASTER.MEDICAL MANAGEMENT SPECIALIST [address] [place] [address] Supervisor Vacuum Metalizing Family [facility] 10/21/24 Team Status: Active Member Role Status [...] Provider Active S tart: February 04, 2025 Strike Out Machine Operator Relationship Specialty Start [place] [address] [place] [address] PCP - General Family Medicine 10/05/10 Edenilson Townsend OD [address] [place] [address] Consulting Optometry 12/07/17 Cinthia Ponce, GENERAL FORECASTER.MEDICAL MANAGEMENT SPECIALIST [address] [place] [address] Supervisor Vacuum Metalizing [facility] 10/21/24 Willie Kaur, GENERAL FORECASTER.MEDICAL MANAGEMENT SPECIALIST [address] [place] [address] Supervisor Vacuum Metalizing Family [facility] 10/21/24 Team Status: Inactive Member Role Status [...] Provider Active S tart: April 10, 2025 Team Status: Active Member Role Status Dates Mario RODAS MD Attending Provider Active S tart: April 01, 2025 Strike Out Machine Operator Relationship Specialty Start [place] [address] [place] [address] PCP - General Family Medicine 10/05/10 Edenilson Townsend OD [address] [place] [address] Consulting Optometry 12/07/17 Willie Kaur APRN.CNP [address] [place], [place] [id number] [facility] 10/21/24 Goals (unrecognized section and content) Goals may [...] BE BASED ON THE PRIMARY CLINICAL RECORDS. [facility] [employer] [facility]. provides no warranty or guarantee of the accuracy or completeness of information in this document.
--- OUTSIDE RECORDS SUMMARY | 2025-05-27 04:58 | XMS RPT_ITS | CCD ---
Author Organization [facility] ion [facility] Care Team Providers Care Books Binder Name Role Phone Migdalia Cramer MD Primary Care Provider Edenilson Townsend Unavailable [facility] Unavailable Oseas MURRIETA, Katia Unavailable UnavailMigdalia Matute MD Primary Care Provider Edenilson Townsend Unavailable Migdalia Cramer MD Primary Care Provider Edenilson Townsend Unavailable [phone] Lien Hankins RN Unavailable Edenilson Townsend OD Unavailable Migdalia Cramer MD Primary Care Provider Kris LEASE ANALYST.Cinthia JUAN Unavailable [facility].Willie JUAN Unavailable Aubree HODGE, Mario Attending Provider Unavailable Aubree HODGE, Mario Referring Provider Unavailable PROVIDER, UNKNOWN [...] Primary Care Unavailable MITSCH, WILLIE Referring Unavailable CRMAER, MIGDALIA Archibald Primary Care Unavailable MITSCH, WILLIE [...] Unavailable OSCAR, GRUPO Referring Unavailable CRAMER, MIGDALIA Acrhibald Primary Care Unavailable SIMONE KEVIN Referring Unavailable [...] Comment on above: Take 1 capsule by [facility] once daily for 3 doses. colchicine [...] needed. docusate sodium 50 mg / sennosides, retirement 8.6 mg oral tablet (10 sources) take [...] Comment on above: Take 1 tablet by iwoan th once daily. Take 1 tablet by [...] on above: Take 1 capsule by mo [facility] once daily. TAKE 1 CAPSULE BY MO [facility] ONCE DAILY melatonin 3 mg oral [...] disease, without long-term current use of insulin ([facility]) TAKE 1 TABLET BY MOUTH ONCE DAILY 90 tablet 3 06/18/2022 Active Start: 08-19-2020 End: 07-14-2021 pioglitazone (ACTOS) 45 mg t ablet Indications: Type 2 diabetes mellitus with stage 3 chronic kidney disease, without long-term current use of insulin ([facility]) TAKE 1 TABLET BY MOUTH ONCE DAILY 90 tablet 3 07/14/2021 Active Comment on above: TAKE 1 TABLET BY IWONA TH ONCE DAILY polyethylene glycol 3350 71989 mg powder for oral solution (20 sources) [...] Test Name Value Interpretation Reference Range Facility [facility] 05-01-2025 CNPN Telephone (RHEUAV) YUSUF MEDINA ([id number]) 1935 [address] [facility] Date Time Provider Department 05/01/25 TYESHA SINGLETON During your visit today, we recorded the following information about you: Ketty Remy LPN 05/01/2025 4:38 PM Signed Received results of labs done on [facility] from 04/29/25 (abnormal results in bold): CRP 21.0 sed rate 32 Report sent for scanning. Tyesha Singleton MD 05/02/2025 8:14 AM Signed Please ask her to come in for follow up with me. Also make sure she is taking the colchicine and mobic as prescribed. MD Solomon Pruett Trena, LPN 05/02/2025 10:30 AM Signed Called and spoke to Lanbccvd-jh-uzf, Demetria. Patient is in a long-term care facility. Called facility [phone], but unable to speak to nurse as [...] this patient by: CAREGIVER José Miguel Swanson [facility] Problem List As Of Date 05/01/2025 Noted [...] 10/31/2010 09/23/2014 (more content not included)... Normal [facility] CRPon 04-29-2025 C-REACTIVE PROT 21.00 mg/L High 0.0-3.0 [facility] Comment on above: Order Comment: 107.1 Performed By: #### L 503.6030, L503.0105, L506.0250, L500.4050, L100.0100, L101.9900 #### [facility] [address] [place], [place], [id number] Erythrocyte Sed Rateon 04-29 SED RATE 32 mm/hr High 0-30 [facility] Comment on above: Order Comment: 107.1 Performed By: #### L 503.6030, L503.0105, L506.0250, L500.4050, L100.0100, L101.9900 #### [facility] [address] [place], [place], [address] Urine Cultureon 04-28-2025 URC 107-1 #2 Below infection level. PROBABLE PROTEUS SPECIES Escherichia coli Termo Count 11,000-25,000 Gram negative anabell Gram negative [...] TMP SMX Islt HEMANT <=20 S Normal [facility] Comment on above: Performed By: #### L 503.6030, L503.0105, L506.0250, L500.4050, L100.0100, L101.9900 #### [facility] [address] [place], [address] Urinalysis, Completeon 04-26 CAST,FINE GRAN 0-5 SEEN Normal 0-5 [facility] Comment on above: Order Comment: 107.1 Performed By: #### L 503.6030, L503.0105, L506.0250, L500.4050, L100.0100, L101.9900 #### [facility] [address] [place], [address] CAST,HYALINE 5-10 SEEN Normal 0-5 [facility] Comment on above: Order Comment: 107.1 Performed By: #### L 503.6030, L503.0105, L506.0250, L500.4050, L100.0100, L101.9900 #### [facility] [address] [place], [address] BACTERIA 1+ /hpf Normal None Seen [facility] Comment on above: Order Comment: 107.1 Performed By: #### L 503.6030, L503.0105, L506.0250, L500.4050, L100.0100, L101.9900 #### [facility] [address] [place], [address] EPI,SQUAMOUS 5-10 SEEN Normal 5-10 [facility] Comment on above: Order Comment: 107.1 Performed By: #### L 503.6030, L503.0105, L506.0250, L500.4050, L100.0100, L101.9900 #### [facility] [address] [place], [address] WBC 0-5 SEEN Normal 0-5 [facility] Comment on above: Order Comment: 107.1 Performed By: #### L 503.6030, L503.0105, L506.0250, L500.4050, L100.0100, L101.9900 #### [facility] [address] [place], [address] Mucus Ql (Urine sed) 0 SEEN Normal [facility] Comment on above: Order Comment: 107.1 Performed By: #### L 503.6030, L503.0105, L506.0250, L500.4050, L100.0100, L101.9900 #### [facility] [address] [place], [address] RBC 0 SEEN Normal 0-5 [facility] Comment on above: Order Comment: 107.1 Performed By: #### L 503.6030, L503.0105, L506.0250, L500.4050, L100.0100, L101.9900 #### [facility] [address] [place], [address] Urine Cultureon 04-12-2025 URC 107-1 #2 Probable Proteus species. Below infection level. Escherichia coli Termo Count 50,000-80,000 Gram negative anabell Gram negative [...] TMP SMX Islt HEMANT <=20 S Normal [facility] Comment on above: Performed By: #### L 503.6030, L503.0105, L506.0250, L500.4050, L100.0100, L101.9900 #### [facility] [address] [place], [address] Urinalysis, Completeon 04-11 CAST,HYALINE 0-5 SEEN Normal 0-5 [facility] Comment on above: Order Comment: 107.1 Performed By: #### L 503.6030, L503.0105, L506.0250, L500.4050, L100.0100, L101.9900 #### [facility] [address] [place], [address] BACTERIA 1+ /hpf Normal None Seen [facility] Comment on above: Order Comment: 107.1 Performed By: #### L 503.6030, L503.0105, L506.0250, L500.4050, L100.0100, L101.9900 #### [facility] [address] [place], [address] EPI,SQUAMOUS 0-5 SEEN Normal 5-10 [facility] Comment on above: Order Comment: 107.1 Performed By: #### L 503.6030, L503.0105, L506.0250, L500.4050, L100.0100, L101.9900 #### [facility] [address] [place], [address] RBC 0-5 SEEN Normal 0-5 [facility] Comment on above: Order Comment: 107.1 Performed By: #### L 503.6030, L503.0105, L506.0250, L500.4050, L100.0100, L101.9900 #### [facility] [address] [place], [address] WBC 5-10 SEEN Normal 0-5 [facility] Comment on above: Order Comment: 107.1 Performed By: #### L 503.6030, L503.0105, L506.0250, L500.4050, L100.0100, L101.9900 #### [facility] [address] [place], [address] Mucus Ql (Urine sed) 0 SEEN Normal [facility] Comment on above: Order Comment: 107.1 Performed By: #### L 503.6030, L503.0105, L506.0250, L500.4050, L100.0100, L101.9900 #### [facility] [place] [address] [place], [address] Bilirubin Test strip Ql (U)O rdered By: Mario Mak on 04-10-2025 Bilirubin Ql (U) Negative Negative [facility] Hyaline casts LM.LPF (Urine sed) [#/Area]Ordered By: Mario Mak on 04-10-2025 Hyaline casts (Urine sed) [#/Area] 0 /[LPF] 0-5 [facility] Ketones Test strip Ql (U)Ord ered By: Mario Mak on 04-10-2025 Ketones Ql (U) Negative Negative [facility] Microscopic analysis of urin e for red blood cells (RBC)Ordered By: Mario Mak on 04-10-2025 Microscopic analysis of urine for red blood cells (RBC) 0-5 SEEN /hpf 0-5 [facility] Mucus LM Ql (Urine sed)Order ed By: Mario Mak on 04-10-2025 Mucus Ql (Urine sed) 0 SEEN /hpf [facility] Nitrite Test strip Ql (U)Ord ered By: Mario Mak on 04-10-2025 Nitrite Ql (U) Negative Negative [facility] Protein Test strip Ql (U)Ord ered By: Mario Mak on 04-10-2025 Protein Ql (U) 100 mg/dl High Negative [facility] Squamous epithelial cells de tection in urine sediment by light microscopyOrdered By: Mario Mak on 04-10-2025 Epithelial cells.squamous LM Ql (Urine sed) 0-5 SEEN /hpf 5-10 [facility] Urine clarityOrdered By: Shwetha Mak on 04-10-2025 Clarity (U) Clear Clear [facility] Urine color determinationOrd ered By: Mario Mak on 04-10-2025 Color (U) Yellow Yellow [facility] Urine cultureOrdered By: Shwetha Mak on 04-10-2025 Bacteria identified Cx Nom (U) Escherichia coli Abnormal [facility] Bacteria identified Cx Nom (U) Negative Abnormal [facility] Urine glucose detectionOrder ed By: Mario Mak on 04-10-2025 Glucose Ql (U) Normal mg/dl Normal [facility] Urine leukocyte esterase det ection by dipstickOrdered By: Mario Mak on 04-10-2025 Leukocyte esterase Test strip Ql (U) 100 /ul High Negative [facility] Urine pHOrdered By: Mario reece on 04-10-2025 pH (U) 6.0 [pH] 5.0 - 8.0 [facility] Urine sediment bacteria coun t by microscopy (number/high power field)Ordered By: Mario Mak on 04-10-2025 Bacteria LM.HPF (Urine sed) [#/Area] 1 /[HPF] None Seen [facility] Urine specific gravity measu rementOrdered By: Mario Mak on 04-10-2025 Specific gravity (U) [Rel density] 1.015 1.002-1.030 [facility] Urine urobilinogen measureme ntOrdered By: Mario Mak on 04-10-2025 Urobilinogen Ql (U) Normal mg/dl Normal [facility] White blood cell countOrdere d By: Mario Mak on 04-10-2025 White blood cell count 5-10 SEEN /hpf 0-5 [facility] CRPon 04-01-2025 C-REACTIVE PROT < 3.00 Normal 0.0-3.0 [facility] Comment on above: Order Comment: 107-1 Performed By: #### L 501.6710, L101.9900 #### [facility] [address] [place], [place], [id number] Erythrocyte Sed Rateon 04-01 SED RATE 14 mm/hr Normal 0-30 [facility] Comment on above: Order Comment: 107.1 Performed By: #### L 503.6030, L503.0105, L506.0250, L500.4050, L100.0100, L101.9900 #### [facility] [address] [place], [address] Erythrocyte sedimentation ra teOrdered By: Mario Mak on 04-01-2025 ESR (Bld) [Velocity] 14 mm/h 0-30 [facility] Serum or plasma C reactive p rotein measurement (mass/volume)Ordered By: Mario Mak on 04-01-2025 CRP [Mass/Vol] mg/L 0.0-3.0 [facility] Hemoglobin A1c percentageOrd ered By: Mario Mak on 03-12-2025 HbA1c (Bld) [Mass fraction] 7.4 % High <=5.6 [facility] Comment on above: Normal < 5.7 % Predi abetic 5.7 - 6.4 % Diabetic >or= 6.5 % Please note range changes. Order Comment: 107.1 Result Comment: Norm al < 5.7 % Prediabetic 5.7 - 6.4 % Diabetic >or= 6.5 % Please note range changes. Performed By: #### L 503.6030, L503.0105, L506.0250, L500.4050, L100.0100, L101.9900 #### [facility] [address] [place], [place], [id number] CRPon 03-04-2025 C-REACTIVE PROT < 3.00 Normal 0.0-3.0 [facility] Comment on above: Order Comment: 107.1 Performed By: #### L 503.6030, L503.0105, L506.0250, L500.4050, L100.0100, L101.9900 #### [facility] [address] [place], [place], [id number] Erythrocyte Sed Rateon 03-04 SED RATE 12 mm/hr Normal 0-30 [facility] Comment on above: Order Comment: 107.1 Performed By: #### L 503.6030, L503.0105, L506.0250, L500.4050, L100.0100, L101.9900 #### [facility] [address] [place], [place], [id number] Erythrocyte sedimentation ra teOrdered By: Mario Mak on 03-04-2025 ESR (Bld) [Velocity] 12 mm/h 0-30 [facility] Serum or plasma C reactive p rotein measurement (mass/volume)Ordered By: Mario Mak on 03-04-2025 CRP [Mass/Vol] mg/L 0.0-3.0 [facility] CNOVon 02-13-2025 CNOV Normal [facility] CNPNon 02-11-2025 CNPN Telephone (RHEUAV) YUSUF MEDINA ([id number]) 1935 [address] Date Time Provider Department 02/11/25 TYESHA SINGLETON During your visit today, we recorded the following information about you: Lidia aCrbajal LPN 02/11/2025 1:00 PM Signed Received results of labs done on 02/04/2025 from [facility] (abnormal results in bold): sed rate 23 [...] this patient by: CAREGIVER José Miguel Swanson [facility] Problem List As Of [...] arthritis [M16.10] (more content not included)... Normal [facility] CRPon 02-04-2025 C-REACTIVE PROT < 3.00 Normal 0.0-3.0 [facility] Comment on above: Order Comment: 107.1 Performed By: #### L 503.6030, L503.0105, L506.0250, L500.4050, L100.0100, L101.9900 #### [facility] [address] [place], [place], [id number] CRP [Mass/Vol]Ordered By: Moreno on 02-04-2025 C-Reactive Protein Extended Range < 3.00 mg/L 0.0-3.0 [facility] Erythrocyte Sed Rateon 02-04 SED RATE 23 mm/hr Normal 0-30 [facility] Comment on above: Order Comment: 107.1 Performed By: #### L 503.6030, L503.0105, L506.0250, L500.4050, L100.0100, L101.9900 #### [facility] [address] [place], [place], [id number] Erythrocyte sedimentation ra teOrdered By: Mario Mak on 02-04-2025 ESR (Bld) [Velocity] 23 mm/h 0-30 [facility] Serum or plasma C reactive p rotein measurement (mass/volume)Ordered By: Mario Mak on 02-04-2025 CRP [Mass/Vol] mg/L 0.0-3.0 [facility] CNOVon 01-16-2025 CNOV [facility] Absolute lymphocyte countOrd ered By: Mario Mak on 01-15-2025 Lymphocytes Auto (Unsp spec) [#/Vol] 1.16 10*3/uL 0.83-4.51 [facility] Absolute neutrophil countOrd ered By: Mario Mak on 01-15-2025 Neutrophils (Bld) [#/Vol] 5.9 10*3/uL 2.0-7.7 [facility] Anion gap in Serum or Plasma Ordered By: Mario Mak on 01-15-2025 Anion gap [Moles/Vol] 12 mmol/L 5-15 [facility] Automated lymphocyte count a s percentage of total leukocytesOrdered By: Mario Mak on 01-15-2025 Lymphocytes/100 WBC Auto (Unsp spec) 14.3 % Low 19-41 [facility] BUN/creatinine ratioOrdered By: Mario Mak on 01-15-2025 Urea nitrogen/Creatinine [Mass ratio] 35.3 mg/mg High 10-20 [facility] Basic Metabolic Profile (BMP )on 01-15-2025 BUN/CRE 35.3 RATIO High 10-20 [facility] Comment on above: Order Comment: 107.1 Performed By: #### L 503.6030, L503.0105, L506.0250, L500.4050, L100.0100, L101.9900 #### [facility] [address] [place], [address] Calcium [Mass/Vol] 9.1 mg/dL Normal 7.6-11.0 [facility] Comment on above: Order Comment: 107.1 Performed By: #### L 503.6030, L503.0105, L506.0250, L500.4050, L100.0100, L101.9900 #### [facility] [address] [place], [address] Chloride [Moles/Vol] 101 mmol/L Normal 98-108 [facility] Comment on above: Order Comment: 107.1 Performed By: #### L 503.6030, L503.0105, L506.0250, L500.4050, L100.0100, L101.9900 #### [facility] [address] [place], [address] CO2 [Moles/Vol] 26.0 mmol/L Normal 21.0-32.0 [facility] Comment on above: Order Comment: 107.1 Performed By: #### L 503.6030, L503.0105, L506.0250, L500.4050, L100.0100, L101.9900 #### [facility] [address] [place], [address] Creatinine [Mass/Vol] 0.76 mg/dL Normal 0.70-1.20 [facility] Comment on above: Order Comment: 107.1 Performed By: #### L 503.6030, L503.0105, L506.0250, L500.4050, L100.0100, L101.9900 #### [facility] [address] [place], [address] GAP 12 Normal 5-15 [facility] Comment on above: Order Comment: 107.1 Performed By: #### L 503.6030, L503.0105, L506.0250, L500.4050, L100.0100, L101.9900 #### [facility] [address] [place], [address] GFR/1.73 sq M.predicted among non-blacks MDRD (S/P/Bld) [Vol rate/Area] 75 mL/min/{1.73_m2} Normal >60 [facility] Comment on above: Order Comment: 107.1 Result Comment: mL/m in/1.73m2 CKD-EPI Creatinine Equation (2020) Performed By: #### L 503.6030, L503.0105, L506.0250, L500.4050, L100.0100, L101.9900 #### [facility] [address] [place], [address] Glucose [Mass/Vol] 108 mg/dL High 70-99 [facility] Comment on above: Order Comment: 107.1 Performed By: #### L 503.6030, L503.0105, L506.0250, L500.4050, L100.0100, L101.9900 #### [facility] [address] [place], [address] Potassium [Moles/Vol] 4.6 mmol/L Normal 3.3-5.1 [facility] Comment on above: Order Comment: 107.1 Performed By: #### L 503.6030, L503.0105, L506.0250, L500.4050, L100.0100, L101.9900 #### [facility] [address] [place], [address] Sodium [Moles/Vol] 139 mmol/L Normal 133-145 [facility] Comment on above: Order Comment: 107.1 Performed By: #### L 503.6030, L503.0105, L506.0250, L500.4050, L100.0100, L101.9900 #### [facility] [address] [place], [address] Urea nitrogen [Mass/Vol] 27 mg/dL High 4-19 [facility] Comment on above: Order Comment: 107.1 Performed By: #### L 503.6030, L503.0105, L506.0250, L500.4050, L100.0100, L101.9900 #### [facility] [address] [place], [address] Basophil percentageOrdered B y: Mario Mak on 01-15-2025 Basophils/100 WBC (Bld) 0.5 % 0-1 [facility] CBC W/Diff, Automatedon 03-0 Absolute Lymph 1.16 X10 3/uL Normal 0.83-4.51 [facility] Comment on above: Order Comment: 107.1 Performed By: #### L 503.6030, L503.0105, L506.0250, L500.4050, L100.0100, L101.9900 #### [facility] [address] [place], [address] Absolute Neut 5.9 X10 3/uL Normal 2.0-7.7 [facility] Comment on above: Order Comment: 107.1 Performed By: #### L 503.6030, L503.0105, L506.0250, L500.4050, L100.0100, L101.9900 #### [facility] [address] [place], [address] Basophils/100 WBC (Bld) 0.5 % Normal 0-1 [facility] Comment on above: Order Comment: 107.1 Performed By: #### L 503.6030, L503.0105, L506.0250, L500.4050, L100.0100, L101.9900 #### [facility] [address] [place], [address] Eosinophils/100 WBC (Bld) 4.1 % Normal 0-5 [facility] Comment on above: Order Comment: 107.1 Performed By: #### L 503.6030, L503.0105, L506.0250, L500.4050, L100.0100, L101.9900 #### [facility] [address] [place], [address] Erythrocyte distribution width (RBC) [Ratio] 16.0 % High 11.6-14.6 [facility] Comment on above: Order Comment: 107.1 Performed By: #### L 503.6030, L503.0105, L506.0250, L500.4050, L100.0100, L101.9900 #### [facility] [address] [place], [address] Hematocrit (Bld) [Volume fraction] 29.0 % Low 37-47 [facility] Comment on above: Order Comment: 107.1 Performed By: #### L 503.6030, L503.0105, L506.0250, L500.4050, L100.0100, L101.9900 #### [facility] [address] [place], [address] Hemoglobin (Bld) [Mass/Vol] 9.4 g/dL Low 12.0-15.0 [facility] Comment on above: Order Comment: 107.1 Performed By: #### L 503.6030, L503.0105, L506.0250, L500.4050, L100.0100, L101.9900 #### [facility] [address] [place], [address] IG% 1.100 High 0.0-0.9 [facility] Comment on above: Order Comment: 107.1 Result Comment: IG% - Immature Granulocytes (promyelocytes, myelocytes and metamyelocytes) > 1% indicates that a LEFT SHIFT is Present. Performed By: #### L 503.6030, L503.0105, L506.0250, L500.4050, L100.0100, L101.9900 #### [facility] [address] [place], [address] Lymphocytes/100 WBC (Bld) 14.3 % Low 19-41 [facility] Comment on above: Order Comment: 107.1 Performed By: #### L 503.6030, L503.0105, L506.0250, L500.4050, L100.0100, L101.9900 #### [facility] [address] [place], [address] MCH (RBC) [Entitic mass] 29.5 pg Normal 27.0-32.0 [facility] Comment on above: Order Comment: 107.1 Performed By: #### L 503.6030, L503.0105, L506.0250, L500.4050, L100.0100, L101.9900 #### [facility] [address] [place], [address] MCHC (RBC) [Mass/Vol] 32.4 g/dL Normal 32-36 [facility] Comment on above: Order Comment: 107.1 Performed By: #### L 503.6030, L503.0105, L506.0250, L500.4050, L100.0100, L101.9900 #### [facility] [address] [place], [address] MCV (RBC) [Entitic vol] 90.9 fL Normal 81-99 [facility] Comment on above: Order Comment: 107.1 Performed By: #### L 503.6030, L503.0105, L506.0250, L500.4050, L100.0100, L101.9900 #### [facility] [address] [place], [address] Monocytes/100 WBC (Bld) 8.1 % Normal 0-10 [facility] Comment on above: Order Comment: 107.1 Performed By: #### L 503.6030, L503.0105, L506.0250, L500.4050, L100.0100, L101.9900 #### [facility] [address] [place], [address] Neutrophils/100 WBC (Bld) 71.9 % High 47-70 [facility] Comment on above: Order Comment: 107.1 Performed By: #### L 503.6030, L503.0105, L506.0250, L500.4050, L100.0100, L101.9900 #### [facility] [address] [place], [address] Nucleated RBC (Bld) [#/Vol] 0 10*3/uL Normal 0-5 [facility] Comment on above: Order Comment: 107.1 Performed By: #### L 503.6030, L503.0105, L506.0250, L500.4050, L100.0100, L101.9900 #### [facility] [address] [place], [address] Platelet mean volume (Bld) [Entitic vol] 9.4 fL Normal 6.2-12.0 [facility] Comment on above: Order Comment: 107.1 Performed By: #### L 503.6030, L503.0105, L506.0250, L500.4050, L100.0100, L101.9900 #### [facility] [address] [place], [address] Platelets (Bld) [#/Vol] 390 10*3/uL Normal 150-450 [facility] Comment on above: Order Comment: 107.1 Performed By: #### L 503.6030, L503.0105, L506.0250, L500.4050, L100.0100, L101.9900 #### [facility] [address] [place], [address] RBC (Bld) [#/Vol] 3.19 10*6/uL Low 4.2-5.4 [facility] Comment on above: Order Comment: 107.1 Performed By: #### L 503.6030, L503.0105, L506.0250, L500.4050, L100.0100, L101.9900 #### [facility] [address] [place], [address] RDW SD 53.4 fl High 35.1-43.9 [facility] Comment on above: Order Comment: 107.1 Performed By: #### L 503.6030, L503.0105, L506.0250, L500.4050, L100.0100, L101.9900 #### [facility] [address] [place], [address] WBC (Bld) [#/Vol] 8.1 10*3/uL Normal 4.4-11.0 [facility] Comment on above: Order Comment: 107.1 Performed By: #### L 503.6030, L503.0105, L506.0250, L500.4050, L100.0100, L101.9900 #### [facility] [place], [address] Carbon dioxide, total [Moles /volume] in Central venous bloodOrdered By: Mario Mak on 01-15-2025 CO2 [Moles/Vol] 26.0 mmol/L 21.0-32.0 [facility] Chloride assayOrdered By: Moreno on 01-15-2025 Chloride [Moles/Vol] 101 mmol/L 98-108 [facility] Eosinophil percentageOrdered By: Mario Mak on 01-15-2025 Eosinophils/100 WBC (Bld) 4.1 % 0-5 [facility] Erythrocyte distribution wid th (RBC) [Ratio]Ordered By: Mario Mak on 01-15-2025 Erythrocyte distribution width (RBC) [Entitic vol] 53.4 fL High 35.1-43.9 [facility] Erythrocyte distribution wid th ratioOrdered By: Mario Mak on 01-15-2025 Erythrocyte distribution width (RBC) [Ratio] 16.0 % High 11.6-14.6 [facility] Erythrocyte distribution wid th standard deviationOrdered By: Mario Mak on 01-15-2025 Erythrocyte distribution width (RBC) [Ratio] 53.4 fl High 35.1-43.9 [facility] GFR/1.73 sq M.predicted ida g non-blacks MDRD (S/P/Bld) [Vol rate/Area]Ordered By: Mario Mak on 01-15-2025 Estimated GFR (MDRD) Non-Af Amer 75 >60 [facility] Comment on above: mL/min/1.73m2 CKD-EP I Creatinine Equation (2020) Glomerular filtration rate ( GFR) estimation/1.73 sq m using serum, plasma, or whole bOrdered By: Mario Mak on 01-15-2025 GFR/1.73 sq M.predicted among non-blacks MDRD (S/P/Bld) [Vol rate/Area] 75 mL/min/{1.73_m2} >60 [facility] Comment on above: mL/min/1.73m2 CKD-EP I Creatinine Equation (2020) Hematocrit Auto (Bld) [Volum e fraction]Ordered By: Mario Mak on 01-15-2025 Hematocrit (Bld) [Volume fraction] 29.0 % Low 37-47 [facility] Hemoglobin measurementOrdere d By: Mario Mak on 01-15-2025 Hemoglobin (Bld) [Mass/Vol] 9.4 g/dL Low 12.0-15.0 [facility] Immature granulocytes/100 WB C Auto (Bld)Ordered By: Mario Mak on 01-15-2025 Immature granulocytes/100 WBC (Bld) 1.100 % High 0.0-0.9 [facility] Comment on above: IG% - Immature Granu locytes (promyelocytes, myelocytes and metamyelocytes) > 1% indicates that a LEFT SHIFT is Present. Lymphocytes Auto (Unsp spec) [#/Vol]Ordered By: Mario Mak on 01-15-2025 Lymphocytes (Bld) [#/Vol] 1.16 10*3/uL 0.83-4.51 [facility] Lymphocytes/100 WBC Auto (Un sp spec)Ordered By: Mario Mak on 01-15-2025 Lymphocytes/100 WBC (Bld) 14.3 % Low 19-41 [facility] MCV (mean corpuscular volume ) determinationOrdered By: Mario Mak on 01-15-2025 MCV (RBC) [Entitic vol] 90.9 fL 81-99 [facility] Mean corpuscular hemoglobin (MCH) determinationOrdered By: Mario Mak on 01-15-2025 MCH (RBC) [Entitic mass] 29.5 pg 27.0-32.0 [facility] Mean corpuscular hemoglobin concentration (MCHC) determinationOrdered By: Mario Mak on 01-15-2025 MCHC (RBC) [Mass/Vol] 32.4 g/dL 32-36 [facility] Mean platelet volume determi nationOrdered By: Mario Mak on 01-15-2025 Platelet mean volume (Bld) [Entitic vol] 9.4 fL 6.2-12.0 [facility] Monocyte percentageOrdered B y: Mario Mak on 01-15-2025 Monocytes/100 WBC (Bld) 8.1 % 0-10 [facility] Neutrophil percentageOrdered By: Mario Mak on 01-15-2025 Neutrophils/100 WBC (Bld) 71.9 % High 47-70 [facility] Nucleated red blood cell per centageOrdered By: Mario Mak on 01-15-2025 Nucleated RBC/100 WBC (Bld) [Ratio] 0 % 0-5 [facility] Platelet countOrdered By: Moreno on 01-15-2025 Platelets (Bld) [#/Vol] 390 10*3/uL 150-450 [facility] Potassium (Unsp spec) [Mass/ Vol]Ordered By: Mario Mak on 01-15-2025 Potassium [Moles/Vol] 4.6 mmol/L 3.3-5.1 [facility] Potassium measurement (mass/ volume)Ordered By: Mario Mak on 01-15-2025 Potassium (Unsp spec) [Mass/Vol] 4.6 mmol/L 3.3-5.1 [facility] RBC Auto (Bld) [#/Vol]Ordere d By: Mario Mak on 01-15-2025 RBC (Bld) [#/Vol] 3.19 10*6/uL Low 4.2-5.4 [facility] Serum creatinine measurement (mass/volume)Ordered By: Mario Mak on 01-15-2025 Creatinine [Mass/Vol] 0.76 mg/dL 0.70-1.20 [facility] Serum glucose measurement (m ass/volume)Ordered By: Mario Mak on 01-15-2025 Glucose [Mass/Vol] 108 mg/dL High 70-99 [facility] Serum or plasma calcium roma urement (mass/volume)Ordered By: Mario Mak on 01-15-2025 Calcium [Mass/Vol] 9.1 mg/dL 7.6-11.0 [facility] Serum or plasma urea nitroge n measurement (mass/volume)Ordered By: Mario Mak on 01-15-2025 Urea nitrogen [Mass/Vol] 27 mg/dL High - [facility] Sodium levelOrdered By: Mario Mak on 01-15-2025 Sodium [Moles/Vol] 139 mmol/L 133-145 [facility] White blood cell (WBC) count Ordered By: Mario Mak on 01-15-2025 WBC (Bld) [#/Vol] 8.1 10*3/uL 4.4-11.0 [facility]-2025 [facility] Absolute lymphocyte countOrd ered By: Mario Mak on 01-07-2025 Lymphocytes Auto (Unsp spec) [#/Vol] 0.98 10*3/uL 0.83-4.51 [facility] Absolute neutrophil countOrd ered By: Mario Mak on 01-07-2025 Neutrophils (Bld) [#/Vol] 5.7 10*3/uL 2.0-7.7 [facility] Albumin to globulin ratioOrd ered By: Mario Mak on 01-07-2025 Albumin/Globulin [Mass ratio] 0.6 {ratio} Low 0.9-2.4 [facility] Automated lymphocyte count a s percentage of total leukocytesOrdered By: Mario Mak on 01-07-2025 Lymphocytes/100 WBC Auto (Unsp spec) 12.6 % Low 19-41 [facility] Basophil percentageOrdered B y: Mario Mak on 01-07-2025 Basophils/100 WBC (Bld) 0.5 % 0-1 [facility] Bilirubin, totalOrdered By: Mario Mak on 01-07-2025 Bilirubin [Mass/Vol] 0.20 mg/dL 0.20-1.00 [facility] Comment on above: For patients on eltr ombopag therapy, use of Dimension [place] TBIL is not recommended. Blood urea nitrogen (BUN)/cr eatinine ratioOrdered By: Mario Mak on 01-07-2025 Urea nitrogen/Creatinine [Mass ratio] 37.0 mg/mg High 10-20 [facility] CBC W/Diff, Automatedon 12-16 Absolute Lymph 0.98 X10 3/uL Normal 0.83-4.51 [facility] Comment on above: Order Comment: 107.1 Performed By: #### L 503.6030, L503.0105, L506.0250, L500.4050, L100.0100, L101.9900 #### [facility] [address] [place], [address] Absolute Neut 5.7 X10 3/uL Normal 2.0-7.7 [facility] Comment on above: Order Comment: 107.1 Performed By: #### L 503.6030, L503.0105, L506.0250, L500.4050, L100.0100, L101.9900 #### [facility] [address] [place], [address] Basophils/100 WBC (Bld) 0.5 % Normal 0-1 [facility] Comment on above: Order Comment: 107.1 Performed By: #### L 503.6030, L503.0105, L506.0250, L500.4050, L100.0100, L101.9900 #### [facility] [address] [place], [address] Eosinophils/100 WBC (Bld) 3.2 % Normal 0-5 [facility] Comment on above: Order Comment: 107.1 Performed By: #### L 503.6030, L503.0105, L506.0250, L500.4050, L100.0100, L101.9900 #### [facility] [address] [place], [address] Erythrocyte distribution width (RBC) [Ratio] 16.5 % High 11.6-14.6 [facility] Comment on above: Order Comment: 107.1 Performed By: #### L 503.6030, L503.0105, L506.0250, L500.4050, L100.0100, L101.9900 #### [facility] [address] [place], [address] Hematocrit (Bld) [Volume fraction] 28.5 % Low 37-47 [facility] Comment on above: Order Comment: 107.1 Performed By: #### L 503.6030, L503.0105, L506.0250, L500.4050, L100.0100, L101.9900 #### [facility] [address] [place], [address] Hemoglobin (Bld) [Mass/Vol] 8.9 g/dL Low 12.0-15.0 [facility] Comment on above: Order Comment: 107.1 Performed By: #### L 503.6030, L503.0105, L506.0250, L500.4050, L100.0100, L101.9900 #### [facility] [address] [place], [address] IG% 0.600 Normal 0.0-0.9 [facility] Comment on above: Order Comment: 107.1 Result Comment: IG% - Immature Granulocytes (promyelocytes, myelocytes and metamyelocytes) > 1% indicates that a LEFT SHIFT is Present. Performed By: #### L 503.6030, L503.0105, L506.0250, L500.4050, L100.0100, L101.9900 #### [facility] [address] [place], [address] Lymphocytes/100 WBC (Bld) 12.6 % Low 19-41 [facility] Comment on above: Order Comment: 107.1 Performed By: #### L 503.6030, L503.0105, L506.0250, L500.4050, L100.0100, L101.9900 #### [facility] [address] [place], [address] MCH (RBC) [Entitic mass] 28.7 pg Normal 27.0-32.0 [facility] Comment on above: Order Comment: 107.1 Performed By: #### L 503.6030, L503.0105, L506.0250, L500.4050, L100.0100, L101.9900 #### [facility] [address] [place], [address] MCHC (RBC) [Mass/Vol] 31.2 g/dL Low 32-36 [facility] Comment on above: Order Comment: 107.1 Performed By: #### L 503.6030, L503.0105, L506.0250, L500.4050, L100.0100, L101.9900 #### [facility] [address] [place], [address] MCV (RBC) [Entitic vol] 91.9 fL Normal 81-99 [facility] Comment on above: Order Comment: 107.1 Performed By: #### L 503.6030, L503.0105, L506.0250, L500.4050, L100.0100, L101.9900 #### [facility] [address] [place], [address] Monocytes/100 WBC (Bld) 9.9 % Normal 0-10 [facility] Comment on above: Order Comment: 107.1 Performed By: #### L 503.6030, L503.0105, L506.0250, L500.4050, L100.0100, L101.9900 #### [facility] [address] [place], [address] Neutrophils/100 WBC (Bld) 73.2 % High 47-70 [facility] Comment on above: Order Comment: 107.1 Performed By: #### L 503.6030, L503.0105, L506.0250, L500.4050, L100.0100, L101.9900 #### [facility] [address] [place], [address] Nucleated RBC (Bld) [#/Vol] 0 10*3/uL Normal 0-5 [facility] Comment on above: Order Comment: 107.1 Performed By: #### L 503.6030, L503.0105, L506.0250, L500.4050, L100.0100, L101.9900 #### [facility] [address] [place], [address] Platelet mean volume (Bld) [Entitic vol] 9.8 fL Normal 6.2-12.0 [facility] Comment on above: Order Comment: 107.1 Performed By: #### L 503.6030, L503.0105, L506.0250, L500.4050, L100.0100, L101.9900 #### [facility] [address] [place], [address] Platelets (Bld) [#/Vol] 319 10*3/uL Normal 150-450 [facility] Comment on above: Order Comment: 107.1 Performed By: #### L 503.6030, L503.0105, L506.0250, L500.4050, L100.0100, L101.9900 #### [facility] [address] [place], [address] RBC (Bld) [#/Vol] 3.10 10*6/uL Low 4.2-5.4 [facility] Comment on above: Order Comment: 107.1 Performed By: #### L 503.6030, L503.0105, L506.0250, L500.4050, L100.0100, L101.9900 #### [facility] [address] [place], [address] RDW SD 56.5 fl High 35.1-43.9 [facility] Comment on above: Order Comment: 107.1 Performed By: #### L 503.6030, L503.0105, L506.0250, L500.4050, L100.0100, L101.9900 #### [facility] [address] [place], [address] WBC (Bld) [#/Vol] 7.8 10*3/uL Normal 4.4-11.0 [facility] Comment on above: Order Comment: 107.1 Performed By: #### L 503.6030, L503.0105, L506.0250, L500.4050, L100.0100, L101.9900 #### [facility] [address] [place], [address] Carbon dioxide measurementOr dered By: Mario Mak on 01-07-2025 CO2 [Moles/Vol] 28.0 mmol/L 21.0-32.0 [facility] Chloride measurementOrdered By: Mario Mak on 01-07-2025 Chloride [Moles/Vol] 105 mmol/L 98-107 [facility] Comprehensive Metabolic Prof ilon 01-07-2025 Albumin [Mass/Vol] 2.1 g/dL Low 3.2-5.0 [facility] Comment on above: Performed By: #### L 503.6030, L503.0105, L506.0250, L500.4050, L100.0100, L101.9900 #### [facility] [address] [place], [address] Albumin/Globulin [Mass ratio] 0.6 {ratio} Low 0.9-2.4 [facility] Comment on above: Performed By: #### L 503.6030, L503.0105, L506.0250, L500.4050, L100.0100, L101.9900 #### [facility] [address] [place], [address] ALK P 95 U/L Normal 45-117 [facility] Comment on above: Performed By: #### L 503.6030, L503.0105, L506.0250, L500.4050, L100.0100, L101.9900 #### [facility] [address] [place], [address] ALT [Catalytic activity/Vol] U/L Low 13-56 [facility] Comment on above: Performed By: #### L 503.6030, L503.0105, L506.0250, L500.4050, L100.0100, L101.9900 #### [facility] [address] [place], [address] AST [Catalytic activity/Vol] 21 U/L Normal 15-37 [facility] Comment on above: Performed By: #### L 503.6030, L503.0105, L506.0250, L500.4050, L100.0100, L101.9900 #### [facility] [address] [place], [address] Bilirubin [Mass/Vol] 0.20 mg/dL Normal 0.20-1.00 [facility] Comment on above: Result Comment: For patients on eltrombopag therapy, use of Dimension [place] TBIL is not recommended. Performed By: #### L 503.6030, L503.0105, L506.0250, L500.4050, L100.0100, L101.9900 #### [facility] [address] [place], [address] BUN/CRE 37.0 RATIO High 10-20 [facility] Comment on above: Performed By: #### L 503.6030, L503.0105, L506.0250, L500.4050, L100.0100, L101.9900 #### [facility] [address] [place], [address] CA,Total 8.6 mg/dL Normal 8.5-10.1 [facility] Comment on above: Performed By: #### L 503.6030, L503.0105, L506.0250, L500.4050, L100.0100, L101.9900 #### [facility] [address] [place], [address] Chloride [Moles/Vol] 105 mmol/L Normal 98-107 [facility] Comment on above: Performed By: #### L 503.6030, L503.0105, L506.0250, L500.4050, L100.0100, L101.9900 #### [facility] [address] [place], [address] CO2 [Moles/Vol] 28.0 mmol/L Normal 21.0-32.0 [facility] Comment on above: Performed By: #### L 503.6030, L503.0105, L506.0250, L500.4050, L100.0100, L101.9900 #### [facility] [address] [place], [address] Creatinine [Mass/Vol] 0.76 mg/dL Normal 0.55-1.02 [facility] Comment on above: Result Comment: The validity of the calculated GFR GFRAA in patients over 70 years has not been determined. Clinical correlation is essential. Performed By: #### L 503.6030, L503.0105, L506.0250, L500.4050, L100.0100, L101.9900 #### [facility] [address] [place], [address] EST GFR - AA 93 mL/min Normal >60 [facility] Comment on above: Result Comment: Afri can [place] GFR Calc Performed By: #### L 503.6030, L503.0105, L506.0250, L500.4050, L100.0100, L101.9900 #### [facility] [address] [place], [address] GAP 7 Normal 5-15 [facility] Comment on above: Performed By: #### L 503.6030, L503.0105, L506.0250, L500.4050, L100.0100, L101.9900 #### [facility] [address] [place], [address] GFR/1.73 sq M.predicted among non-blacks MDRD (S/P/Bld) [Vol rate/Area] 77 mL/min/{1.73_m2} Normal >60 [facility] Comment on above: Result Comment: Non- GFR Calc Performed By: #### L 503.6030, L503.0105, L506.0250, L500.4050, L100.0100, L101.9900 #### [facility] [address] [place], [address] Globulin (S) [Mass/Vol] 3.4 g/dL Normal 2.2-4.2 [facility] Comment on above: Performed By: #### L 503.6030, L503.0105, L506.0250, L500.4050, L100.0100, L101.9900 #### [facility] [address] [place], [address] Glucose [Mass/Vol] 58 mg/dL Low 74-106 [facility] Comment on above: Performed By: #### L 503.6030, L503.0105, L506.0250, L500.4050, L100.0100, L101.9900 #### [facility] [address] [place], [address] Potassium [Moles/Vol] 4.1 mmol/L Normal 3.5-5.1 [facility] Comment on above: Performed By: #### L 503.6030, L503.0105, L506.0250, L500.4050, L100.0100, L101.9900 #### [facility] [address] [place], [address] Sodium [Moles/Vol] 139 mmol/L Normal 136-145 [facility] Comment on above: Performed By: #### L 503.6030, L503.0105, L506.0250, L500.4050, L100.0100, L101.9900 #### [facility] [address] [place], [address] T PROT 5.5 g/dL Low 6.4-8.2 [facility] Comment on above: Performed By: #### L 503.6030, L503.0105, L506.0250, L500.4050, L100.0100, L101.9900 #### [facility] [address] [place], [address] Urea nitrogen [Mass/Vol] 28 mg/dL High 7-18 [facility] Comment on above: Performed By: #### L 503.6030, L503.0105, L506.0250, L500.4050, L100.0100, L101.9900 #### [facility] [address] [place], [address] Eosinophil percentageOrdered By: Mario Mak on 01-07-2025 Eosinophils/100 WBC (Bld) 3.2 % 0-5 [facility] Erythrocyte Sed Rateon 01-07 SED RATE 41 mm/hr High 0-30 [facility] Comment on above: Order Comment: 107.1 Performed By: #### L 503.6030, L503.0105, L506.0250, L500.4050, L100.0100, L101.9900 #### [facility] [address] [place], [address] Erythrocyte distribution wid th (RBC) [Ratio]Ordered By: Mario Mak on 01-07-2025 Erythrocyte distribution width (RBC) [Entitic vol] 56.5 fL High 35.1-43.9 [facility] Erythrocyte distribution wid th ratioOrdered By: Mario Mak on 01-07-2025 Erythrocyte distribution width (RBC) [Ratio] 16.5 % High 11.6-14.6 [facility] Erythrocyte distribution wid th standard deviationOrdered By: Mario Mak on 01-07-2025 Erythrocyte distribution width (RBC) [Ratio] 56.5 fl High 35.1-43.9 [facility] Erythrocyte sedimentation ra teOrdered By: Mario Mak on 01-07-2025 ESR (Bld) [Velocity] 41 mm/h High 0-30 [facility] Estimated glomerular filtrat ion rate (GFR) AmericanOrdered By: Mario Mak on 01-07-2025 Estimated GFR (MDRD) Amer 93 mL/min >60 [facility] Comment on above: GFR Calc Glomerular filtration rate ( GFR) estimationOrdered By: Mario Mak on 01-07-2025 Estimated GFR (MDRD) Non-Af Amer 77 mL/min >60 [facility] Comment on above: Non- GFR Calc GFR/1.73 sq M.predicted among non-blacks MDRD (S/P/Bld) [Vol rate/Area] 77 mL/min/{1.73_m2} >60 [facility] Comment on above: Non- GFR Calc Glucose measurementOrdered B y: Mario Mak on 01-07-2025 Glucose [Mass/Vol] 58 mg/dL Low 74-106 [facility] Hematocrit Auto (Bld) [Volum e fraction]Ordered By: Mario Mak on 01-07-2025 Hematocrit (Bld) [Volume fraction] 28.5 % Low 37-47 [facility] Hemoglobin measurementOrdere d By: Mario Mak on 01-07-2025 Hemoglobin (Bld) [Mass/Vol] 8.9 g/dL Low 12.0-15.0 [facility] Immature granulocytes/100 WB C Auto (Bld)Ordered By: Mario Mak on 01-07-2025 Immature granulocytes/100 WBC (Bld) 0.600 % 0.0-0.9 [facility] Comment on above: IG% - Immature Granu locytes (promyelocytes, myelocytes and metamyelocytes) > 1% indicates that a LEFT SHIFT is Present. Laboratory - Chemistry and C hemistry - challengeOrdered By: Mario Mak on 01-07-2025 AST [Catalytic activity/Vol] 21 U/L 15-37 [facility] Lymphocytes Auto (Unsp spec) [#/Vol]Ordered By: Mario Mak on 01-07-2025 Lymphocytes (Bld) [#/Vol] 0.98 10*3/uL 0.83-4.51 [facility] Lymphocytes/100 WBC Auto (Un sp spec)Ordered By: Mario Mak on 01-07-2025 Lymphocytes/100 WBC (Bld) 12.6 % Low 19-41 [facility] MCV (mean corpuscular volume ) determinationOrdered By: Mario Mak on 01-07-2025 MCV (RBC) [Entitic vol] 91.9 fL 81-99 [facility] Mean corpuscular hemoglobin (MCH) determinationOrdered By: Mario Mak on 01-07-2025 MCH (RBC) [Entitic mass] 28.7 pg 27.0-32.0 [facility] Mean corpuscular hemoglobin concentration (MCHC) determinationOrdered By: Mario Mak on 01-07-2025 MCHC (RBC) [Mass/Vol] 31.2 g/dL Low 32-36 [facility] Mean platelet volume determi nationOrdered By: Mario Mak on 01-07-2025 Platelet mean volume (Bld) [Entitic vol] 9.8 fL 6.2-12.0 [facility] Monocyte percentageOrdered B y: Mario Mak on 01-07-2025 Monocytes/100 WBC (Bld) 9.9 % 0-10 [facility] Neutrophil percentageOrdered By: Mario Mak on 01-07-2025 Neutrophils/100 WBC (Bld) 73.2 % High 47-70 [facility] Nucleated red blood cell per centageOrdered By: Mario Mak on 01-07-2025 Nucleated RBC/100 WBC (Bld) [Ratio] 0 % 0-5 [facility] Platelet countOrdered By: Moreno on 01-07-2025 Platelets (Bld) [#/Vol] 319 10*3/uL 150-450 [facility] Potassium measurementOrdered By: Mario Mak on 01-07-2025 Potassium [Moles/Vol] 4.1 mmol/L 3.5-5.1 [facility] RBC Auto (Bld) [#/Vol]Ordere d By: Mario Mak on 01-07-2025 RBC (Bld) [#/Vol] 3.10 10*6/uL Low 4.2-5.4 [facility] Serum anion gap measurementO rdered By: Mario Mak on 01-07-2025 Anion gap [Moles/Vol] 7 mmol/L 5-15 [facility] Serum globulin measurementOr dered By: Mario Mak on 01-07-2025 Globulin (S) [Mass/Vol] 3.4 g/dL 2.2-4.2 [facility] Serum or plasma alanine melara otransferase (ALT) measurementOrdered By: Mario Mak on 01-07-2025 ALT [Catalytic activity/Vol] U/L Low 13-56 [facility] Serum or plasma albumin roma urement (mass/volume)Ordered By: Mario Mak on 01-07-2025 Albumin [Mass/Vol] 2.1 g/dL Low 3.2-5.0 [facility] Serum or plasma alkaline krystal sphatase measurementOrdered By: Mario Mak on 01-07-2025 ALP [Catalytic activity/Vol] 95 U/L 45-117 [facility] Serum or plasma calcium roma urement (mass/volume)Ordered By: Mario Mak on 01-07-2025 Calcium [Mass/Vol] 8.6 mg/dL 8.5-10.1 [facility] Serum or plasma creatinine m easurement (mass/volume)Ordered By: Mario Mak on 01-07-2025 Creatinine [Mass/Vol] 0.76 mg/dL 0.55-1.02 [facility] Comment on above: The validity of the calculated GFR & GFRAA in patients over 70 years has not been determined. Clinical correlation is essential. Serum or plasma urea nitroge n measurement (mass/volume)Ordered By: Mario Mak on 01-07-2025 Urea nitrogen [Mass/Vol] 28 mg/dL High 7-18 [facility] Sodium levelOrdered By: Mario Mak on 01-07-2025 Sodium [Moles/Vol] 139 mmol/L 136-145 [facility] Total proteinOrdered By: Shwetha Mak on 01-07-2025 Protein [Mass/Vol] 5.5 g/dL Low 6.4-8.2 [facility] White blood cell (WBC) count Ordered By: Mario Mak on 01-07-2025 WBC (Bld) [#/Vol] 7.8 10*3/uL 4.4-11.0 [facility] Pyridoxine [Mass/Vol]on 12-16 Interpretation and review of laboratory results [facility] VITAMIN B6/PYRIDOXINon 01-06 Pyridoxine [Mass/Vol] 13.8 nmol/L Low 20.0 - 125.0 nmol/L [facility] Comment on above: INTERPRETIVE INFORMA TION: Vitamin B6 (Pyridoxal 5-Phosphate) Pyridoxal 5'-phosphate measured in a specimen collected following an 8-hour or overnight fast accurately indicates vitamin B6 nutritional status. Non-fasting specimen concentration reflects recent vitamin intake. This test was developed and its performance characteristics determined by [facility]. It has not been cleared or approved by the [place] Food and Drug Administration. This test was performed in a CLIA certified laboratory and is intended for clinical purposes. Performed By: [facility] [address] [place] [id number] Senior [employer]actor Operator: Marcellus Raza MD, PhD CLIA Number: [id number] [place] 01-04-2025 [facility] Office Visit (MARJORIE ) YUSUF MEDINA ([id number]) 1935 [address] Date Time Provider Department [...] with dramatic improvement Currently she is in [place] and here with [facility] and nurse aid who gives the history Currently she is pain free Also spoke with her nurse at [place] who states patient does nto complain of pain, pretty sedentary. No specific complaints at [facility] per nurse Currently doing well, no pain at present Family states after debridement of rt ankle- patient feels weak and does not want to walk around Was living alone until 2 months ago and now at [place]. Prior to debridement , patient was not [...] L REMV CATARACT EXTRACAP,INSERT LENS Bilateral [address] [facility] predniSONE (DELTASONE) 5 mg tablet Take [...] by mouth (more content not included)... Normal [facility] 01-03-2025 DRAKEN Telephone (4CQ) YUSUF MEDINA ([id number]) 1935 [address] Date Time Provider Department 01/03/25 MIGDALIA CRAMER 4CQ During your visit today, we recorded the following information about you: Alicia Coffey 01/03/2025 12:30 PM Addendum Received call from [facility]. The personal banking representative has appointment with patient's sons this afternoon at 2 pm and is requesting Advanced Directive/POA paperwork that was scanned in on 12/31. Advised to send records request, but she is concerned about not having this paperwork by 2 pm meeting. Antique Furniture Repairer can be reached at [phone]. Fax number given for records request as well. Jame Tam MA 01/03/2025 4:16 PM Signed Records release was not signed. Please review and advice. Willie Kaur APRN.DRAKE 01/04/2025 9:45 AM Signed Please advise [facility] that if patient signs record release, they can get any records they need from [facility] medical records. Or family can sign record request at [facility] and [facility] can fax Family Medicine the records request and I can send what I can. Our fax is [phone]. Willie Kaur APRN.DRAKE [facility] Keke Mckinney RN 01/04/2025 12:12 PM Signed Spoke with a national secretary at [facility], he took the info again to get us a signed records release faxed to the office. Please watch for fax Willie Kaur APRN.DRAKE 01/04/2025 4:20 PM Signed The initial note indicates that a personal banking representative is calling and gave return phone number [phone]. I called this number and phone rang and rang numerous times. No voice mail. I can print of POA, stamp and fax since this is a facility to facility request. Given to nursing. If the personal banking representative needs anything else and calls back, Please ask for name and direct line so that return call can be made. Thank you. Willie Kaur APRN.Sandrita Arevalo LPN 01/04/2025 4:29 PM Signed Received record release from [facility]. Faxed to number provided on form, confirmation [...] this patient by: CAREGIVER José Miguel Swanson [facility] Problem List As Of Date 01/03/2025 Noted Resolved Osteoarth NOS-other site [M19.90] 09/15/2011 BENIGN HYPERTENSION [I10] 12/01/2016 Diabetes mellitus (HCC) [E11.9] 04/10/2003 Esophageal reflux [K21.9] 06/15/2006 Lumbago [M54.50] 05/31/2007 09/15/2011 Urgency of urination [R39.15] (more content not included)... Normal [facility] COPPER BLOODon 01-03-2025 Copper [Mass/Vol] 128 ug/dL 80 - 155 ug/dL [facility] Comment on above: This test was corina ped, and its performance characteristics determined by the [facility] Department of Pathology and Laboratory Medicine. It has not been cleared or approved by the FDA. The [facility] Department of Pathology and Laboratory Medicine is regulated under CLIA as qualified to perform high-complexity testing. This test is used for clinical purposes. It should not be regarded as investigational or for research. Interpretation and review of laboratory results Normal [facility] FERRITINon 01-03-2025 Ferritin [Mass/Vol] 865 ng/mL High 14.7 - 2 05.1 ng/mL [facility] FOLATE, SERUMon 01-03-2025 Folate [Mass/Vol] 14.8 ng/mL 4.7 - PINF ng/mL [facility] Ferritin [Mass/Vol]on 2024 Interpretation and review of laboratory results Abnormal [facility] Iron and Iron binding capaci ty panelon 01-03-2025 Interpretation and review of laboratory results Normal [facility] Iron [Mass/Vol] 46 ug/dL 41 - 186 ug/dL [facility] Iron binding capacity [Mass/Vol] 245 ug/dL 232 - 386 ug/dL [facility] Iron/TIBC [Molar ratio] 18.8 % 15.0 - 57.0 % [facility] No Panel InformationOrdered By: Ok Mederos on 01-03-2025 [facility] No Panel Informationon 01-03 Interpretation and review of laboratory results [facility] VITAMIN B12on 01-03-2025 Cobalamin (Vitamin B12) [Mass/Vol] 582 pg/mL 232 - 1245 pg/mL [facility] ZINC BLDOrdered By: Ok da silva on 01-03-2025 Zinc [Mass/Vol] 56 ug/dL Low 60 - 120 ug/dL [facility] Comment on above: This test was develo ped, and its performance characteristics determined by the [facility] Department of Pathology and Laboratory Medicine. It has not been cleared or approved by the FDA. The [facility] Department of Pathology and Laboratory Medicine is regulated under CLIA as qualified to perform high-complexity testing. This test is used for clinical purposes. It should not be regarded as investigational or for research. Zinc [Mass/Vol]Ordered By: Ricardo Mederos on 01-03-2025 Interpretation and review of laboratory results Abnormal [facility] CBC W Auto Differential pane l (Bld)on 01-02-2025 Basophils (Bld) [#/Vol] 0.03 10*3/uL [facility] Basophils/100 WBC (Bld) 0.3 % [facility] Differential cell count method Nom (Bld) Auto [facility] Eosinophils (Bld) [#/Vol] 0.3 10*3/uL [facility] Eosinophils/100 WBC (Bld) 2.9 % [facility] Erythrocyte distribution width (RBC) [Ratio] 17.2 % High 11.5 - 15.0 % [facility] Hematocrit (Bld) [Volume fraction] 34.1 % Low 36.0 - 46.0 % [facility] Hemoglobin (Bld) [Mass/Vol] 10.5 g/dL Low 11.5 - 15.5 g/dL [facility] Immature granulocytes (Bld) [#/Vol] 0.1 10*3/uL High [facility] Immature granulocytes/100 WBC (Bld) 1 % [facility] Interpretation and review of laboratory results Abnormal [facility] Lymphocytes (Bld) [#/Vol] 0.78 10*3/uL Low [facility] Lymphocytes/100 WBC (Bld) 7.5 % [facility] MCH (RBC) [Entitic mass] 28.5 pg 26.0 - 34.0 pg [facility] MCHC (RBC) [Mass/Vol] 30.8 g/dL 30.5 - 36.0 g/dL [facility] MCV (RBC) [Entitic vol] 92.4 fL 80.0 - 100.0 fL [facility] Monocytes (Bld) [#/Vol] 0.61 10*3/uL [facility] Monocytes/100 WBC (Bld) 5.9 % C [facility] Neutrophils (Bld) [#/Vol] 8.56 10*3/uL High [facility] Neutrophils/100 WBC (Bld) 82.4 % [facility] Nucleated RBC (Bld) [#/Vol] [facility] Nucleated RBC/100 WBC (Bld) [Ratio] 0 % /100 WBC [facility] Platelet mean volume (Bld) [Entitic vol] 8.7 fL Low 9.0 - 12.7 fL [facility] Platelets (Bld) [#/Vol] 362 10*3/uL [facility] RBC (Bld) [#/Vol] 3.69 10*6/uL Low 3.90 - 5.2 0 m/uL [facility] WBC (Bld) [#/Vol] 10.38 10*3/uL [facility] Basophils (Bld) [#/Vol] 0.03 10*3/uL Normal <0.11 [facility] Comment on above: Order Comment: Speci men Type: BLOOD SPECIMENOrdering Facility: [facility] Address: [address] [place] [address] Performed By: #### 5 7021-8 ####[facility] LABCLIA [id number] [place] [id number] [place] Basophils/100 WBC (Bld) 0.3 % Normal [facility] Comment on above: Order Comment: Speci men Type: BLOOD SPECIMENOrdering Facility: [facility] Address: [address] [place] [address] Performed By: #### 5 7021-8 ####[facility] LABCLIA [id number] [place] [address] [place] Differential cell count method Nom (Bld) Auto Normal [facility] Comment on above: Order Comment: Speci men Type: BLOOD SPECIMENOrdering Facility: [facility] Address: [address] [place] [address] Performed By: #### 5 7021-8 ####[facility] LABCLIA [id number] [place] [address] [place] Eosinophils (Bld) [#/Vol] 0.30 10*3/uL Normal <0.46 [facility] Comment on above: Order Comment: Speci men Type: BLOOD SPECIMENOrdering Facility: [facility] Address: [address] [place] [address] Performed By: #### 5 7021-8 ####[facility] LABCLIA [id number] [place] [address] [place] Eosinophils/100 WBC (Bld) 2.9 % Normal [facility] Comment on above: Order Comment: Speci men Type: BLOOD SPECIMENOrdering Facility: [facility] Address: [address] [place] [address] Performed By: #### 5 7021-8 ####[facility] LABCLIA [id number] [place] [address] [place] Erythrocyte distribution width (RBC) [Ratio] 17.2 % High 11.5-15.0 [facility] Comment on above: Order Comment: Speci men Type: BLOOD SPECIMENOrdering Facility: [facility] Address: [address] [place] [address] Performed By: #### 5 7021-8 ####[facility] LABCLIA [id number] [place] [address] [place] Hematocrit (Bld) [Volume fraction] 34.1 % Low 36.0-46.0 [facility] Comment on above: Order Comment: Speci men Type: BLOOD SPECIMENOrdering Facility: [facility] Address: [address] [place] [address] Performed By: #### 5 7021-8 ####[facility] LABIA [id number] [place] [address] [place] Hemoglobin (Bld) [Mass/Vol] 10.5 g/dL Low 11.5-15.5 [facility] Comment on above: Order Comment: Speci men Type: BLOOD SPECIMENOrdering Facility: [facility] Address: [address] [place] [address] Performed By: #### 5 7021-8 ####[facility] LABIA [id number] [place] [address] [place] Immature granulocytes (Bld) [#/Vol] 0.10 10*3/uL High <0.10 [facility] Comment on above: Order Comment: Speci men Type: BLOOD SPECIMENOrdering Facility: [facility] Address: [address] [place] [address] Performed By: #### 5 7021-8 ####[facility] LABCLIA [id number] [place] [address] [place] Immature granulocytes/100 WBC (Bld) 1.0 % Normal [facility] Comment on above: Order Comment: Speci men Type: BLOOD SPECIMENOrdering Facility: [facility] Address: [address] [place] [address] Performed By: #### 5 7021-8 ####[facility] LABCLIA [id number] [address] [place] Lymphocytes (Bld) [#/Vol] 0.78 10*3/uL Low 1.00-4.00 [facility] Comment on above: Order Comment: Speci men Type: BLOOD SPECIMENOrdering Facility: [facility] Address: [address] [place] [address] Performed By: #### 5 7021-8 ####[facility] LABCLIA [id number] [address] [place] Lymphocytes/100 WBC (Bld) 7.5 % Normal [facility] Comment on above: Order Comment: Speci men Type: BLOOD SPECIMENOrdering Facility: [facility] Address: [address] [place] [address] Performed By: #### 5 7021-8 ####[facility] LABIA [id number] [place] [address] [place] MCH (RBC) [Entitic mass] 28.5 pg Normal 26.0-34.0 [facility] Comment on above: Order Comment: Speci men Type: BLOOD SPECIMENOrdering Facility: [facility] Address: [address] [place] [address] Performed By: #### 5 7021-8 ####[facility] LABCLIA [id number] [place] [address] [place] MCHC (RBC) [Mass/Vol] 30.8 g/dL Normal 30.5-36.0 [facility] Comment on above: Order Comment: Speci men Type: BLOOD SPECIMENOrdering Facility: [facility] Address: [address] [place] [address] Performed By: #### 5 7021-8 ####[facility] LABCLIA [id number] [place] [address] [place] MCV (RBC) [Entitic vol] 92.4 fL Normal 80.0-100.0 C [facility] Comment on above: Order Comment: Speci men Type: BLOOD SPECIMENOrdering Facility: [facility] Address: [address] [place] [address] Performed By: #### 5 7021-8 ####[facility] LABCLIA [id number] [place] [address] [place] Monocytes (Bld) [#/Vol] 0.61 10*3/uL Normal <0.87 [facility] Comment on above: Order Comment: Speci men Type: BLOOD SPECIMENOrdering Facility: [facility] Address: [address] [place] [address] Performed By: #### 5 7021-8 ####[facility] LABCLIA [id number] [place] [address] [place] Monocytes/100 WBC (Bld) 5.9 % Normal [facility] Comment on above: Order Comment: Speci men Type: BLOOD SPECIMENOrdering Facility: [facility] Address: [address] [place] [address] Performed By: #### 5 7021-8 ####[facility] LABCLIA [id number] [place] [address] [place] Neutrophils (Bld) [#/Vol] 8.56 10*3/uL High 1.45-7.50 [facility] Comment on above: Order Comment: Speci men Type: BLOOD SPECIMENOrdering Facility: [facility] Address: [address] [place] [address] Performed By: #### 5 7021-8 ####[facility] LABCLIA [id number] [place] [address] [place] Neutrophils/100 WBC (Bld) 82.4 % Normal [facility] Comment on above: Order Comment: Speci men Type: BLOOD SPECIMENOrdering Facility: [facility] Address: [address] [place] [address] Performed By: #### 5 7021-8 ####[facility] LABCLIA [id number] [address] [place] Nucleated RBC (Bld) [#/Vol] 10*3/uL Normal <0.01 [facility] Comment on above: Order Comment: Speci men Type: BLOOD SPECIMENOrdering Facility: [facility] Address: [address] [place] [address] Performed By: #### 5 7021-8 ####[facility] LABIA [id number] [place] [address] [place] Nucleated RBC/100 WBC (Bld) [Ratio] 0.0 /100 WBC Normal [facility] Comment on above: Order Comment: Speci men Type: BLOOD SPECIMENOrdering Facility: [facility] Address: [address] [place] [address] Performed By: #### 5 7021-8 ####[facility] LABIA [id number] [place] [address] [place] Platelet mean volume (Bld) [Entitic vol] 8.7 fL Low 9.0-12.7 [facility] Comment on above: Order Comment: Speci men Type: BLOOD SPECIMENOrdering Facility: [facility] Address: [address] [place] [address] Performed By: #### 5 7021-8 ####[facility] LABCLIA [id number] [place] [address] [place] Platelets (Bld) [#/Vol] 362 10*3/uL Normal 150-400 [facility] Comment on above: Order Comment: Speci men Type: BLOOD SPECIMENOrdering Facility: [facility] Address: [address] [place] [address] Performed By: #### 5 7021-8 ####[facility] LABCLIA [id number] [place] [address] [place] RBC (Bld) [#/Vol] 3.69 10*6/uL Low 3.90-5.20 [facility] Comment on above: Order Comment: Speci men Type: BLOOD SPECIMENOrdering Facility: [facility] Address: [address] [place] [address] Performed By: #### 5 7021-8 ####[facility] LABCLIA [id number] [place] [id number] [facility] WBC (Bld) [#/Vol] 10.38 10*3/uL Normal 3.70-11.00 [facility] Comment on above: Order Comment: Speci men Type: BLOOD SPECIMENOrdering Facility: [facility] Address: [address] [place] [address] Performed By: #### 5 7021-8 ####[facility] LABCLIA [id number] [address] OF [facility] CNOVSPon 01-02-2025 CNOVSP Visit (SP) Office (HEMAST) YUSUF MEDINA ([id number]) 1935 [facility] Date Time Provider Department 01/02/25 8:30 AM [...] L REMV CATARACT EXTRACAP,INSERT LENS Bilateral 2020 [facility] FAMILY HISTORY Problem Relation Age of [...] daily. amLODI (more content not included)... Normal [facility] CNPNon 01-02-2025 CNPN Telephone (HEMAST) YUSUF MEDINA ([id number]) 1935 F [place] Date Time Provider Department 01/02/25 ADITI LOPEZ HEMLUL During your visit today, we recorded the following information about you: Aditi Lopez LISW 01/02/2025 4:03 PM Signed SOCIAL WORK Date of Service: Thursday January 02, [address] [facility] Winding Machine Operator (SW) Aditi Lopez attempted to contact Yusuf Medina by phone using foreman/project manager services to complete the distress assessment. Yusuf [...] Yusuf will most likely not understand the Barb[place] foreman/project manager because she speaks a different dialect. At [...] this patient by: CAREGIVER José Miguel Swanson [facility] Problem List As Of [...] Osteoarth NOS-p (more content not included)... Normal [facility] CONFIRM BLOOD TYPEon 025 ABO group Nom (Bld) O [facility] Rh Nom (Bld) Positive [facility] ABO O Normal [facility] Comment on above: Order Comment: Speci men Type: BLOOD SPECIMENOrdering Facility: [facility] Address: [address] [place] [address] [place] [id number] Performed By: #### C ONABO ####[facility] BLOOD BANKCLIA [id number] [place] [address] [place] Rh Nom (Bld) Positive Normal [facility] Comment on above: Order Comment: Speci men Type: BLOOD SPECIMENOrdering Facility: [facility] Address: [address] [place] [address] Performed By: #### C ONABO ####[facility] BLOOD BANKCLIA [id number] [address] [place] COPPER BLOODon 01-02-2025 Copper [Mass/Vol] 128 ug/dL Normal 80-155 [facility] Comment on above: Order Comment: Speci men Type: BLOOD SPECIMENOrdering Facility: [facility] Address: [address] [place] [address] Result Comment: This test was developed, and its performance characteristics determined by the [facility] Department of Pathology and Laboratory Medicine. It has not been cleared or approved by the FDA. The [facility] Department of Pathology and Laboratory Medicine is regulated under CLIA as qualified to perform high-complexity testing. This test is used for clinical purposes. It should not be regarded as investigational or for research. Performed By: #### 5 763-8, COPPER ####[facility] LABCLIA [id number] [address] [place] Comprehensive metabolic 2000 panelOrdered By: Aminta Lim on 01-02-2025 Albumin [Mass/Vol] 3.5 g/dL Low 3.9 - 4.9 g/dL [facility] ALP [Catalytic activity/Vol] 128 U/L High 34 - 123 U/L [facility] ALT [Catalytic activity/Vol] U/L Low 7 - 38 U/L [facility] Anion gap [Moles/Vol] 13 mmol/L 8 - 15 mmol/L [facility] AST [Catalytic activity/Vol] 15 U/L 13 - 35 U/L [facility] Bilirubin [Mass/Vol] 0.2 mg/dL 0.2 - 1 .3 mg/dL [facility] Calcium [Mass/Vol] 9.1 mg/dL 8.5 - 10. 2 mg/dL [facility] Chloride [Moles/Vol] 98 mmol/L 98 - 10 7 mmol/L [facility] CO2 [Moles/Vol] 26 mmol/L 22 - 30 mmol/L [facility] Creatinine [Mass/Vol] 0.82 mg/dL 0.58 - 0.96 mg/dL [facility] GFR/1.73 sq M.predicted among non-blacks MDRD (S/P/Bld) [Vol rate/Area] 68 mL/min/{1.73_m2} - PINF [facility] Comment on above: Estimated Glomerular Filtration [...] 276 mg/dL High 74 - 99 mg/dL [facility] Comment on above: The [place] [employer] Association (ADA) provides guidance for [...] Standards of Medical Care in Diabetes 2016, [place] [employer]. Diabetes Care. 2016.39(Suppl 1). Interpretation and review of laboratory results Abnormal [facility] Potassium [Moles/Vol] 5.1 mmol/L 3.7 - 5.1 mmol/L [facility] Protein [Mass/Vol] 5.9 g/dL Low 6.3 - 8.0 g/dL [facility] Sodium [Moles/Vol] 137 mmol/L 136 - 144 mmol/L [facility] Urea nitrogen [Mass/Vol] 29 mg/dL High 7 - 21 mg/dL [facility] Comprehensive metabolic 2000 panelon 01-02-2025 Albumin [Mass/Vol] 3.5 g/dL Low 3.9-4.9 [facility] Comment on above: Order Comment: Speci men Type: BLOOD SPECIMENOrdering Facility: [facility] Address: [address] [place] [address] Performed By: #### 2 4323-8 ####[facility] LABCLIA [id number] [place] [address] [place] ALP [Catalytic activity/Vol] 128 U/L High 34-123 [facility] Comment on above: Order Comment: Speci men Type: BLOOD SPECIMENOrdering Facility: [facility] Address: [address] [place] [address] Performed By: #### 2 4323-8 ####[facility] LABCLIA [id number] [place] [address] [place] ALT [Catalytic activity/Vol] U/L Low 7-38 [facility] Comment on above: Order Comment: Speci men Type: BLOOD SPECIMENOrdering Facility: [facility] Address: [address] [place] [address] Performed By: #### 2 4323-8 ####[facility] LABCLIA [id number] [place] [address] [place] Anion gap [Moles/Vol] 13 mmol/L Normal 8-15 [facility] Comment on above: Order Comment: Speci men Type: BLOOD SPECIMENOrdering Facility: [facility] Address: [address] [place] [address] Performed By: #### 2 4323-8 ####[facility] LABCLIA [id number] [place] [address] [place] AST [Catalytic activity/Vol] 15 U/L Normal 13-35 [facility] Comment on above: Order Comment: Speci men Type: BLOOD SPECIMENOrdering Facility: [facility] Address: [address] [place] [address] Performed By: #### 2 4323-8 ####[facility] LABCLIA [id number] [place] [address] [place] Bilirubin [Mass/Vol] 0.2 mg/dL Normal 0.2-1.3 [facility] Comment on above: Order Comment: Speci men Type: BLOOD SPECIMENOrdering Facility: [facility] Address: [address] [place] [address] Performed By: #### 2 4323-8 ####[facility] LABCLIA [id number] [place] [address] [place] Calcium [Mass/Vol] 9.1 mg/dL Normal 8.5-10.2 [facility] Comment on above: Order Comment: Speci men Type: BLOOD SPECIMENOrdering Facility: [facility] Address: [address] [place] [address] Performed By: #### 2 4323-8 ####[facility] LABCLIA [id number] [place] [address] [place] Chloride [Moles/Vol] 98 mmol/L Normal 98-107 [facility] Comment on above: Order Comment: Speci men Type: BLOOD SPECIMENOrdering Facility: [facility] Address: [address] [place] [address] Performed By: #### 2 4323-8 ####[facility] LABCLIA [id number] [place] [address] [place] CO2 [Moles/Vol] 26 mmol/L Normal 22-30 [facility] Comment on above: Order Comment: Speci men Type: BLOOD SPECIMENOrdering Facility: [facility] Address: [address] [place] [address] Performed By: #### 2 4323-8 ####[facility] LABCLIA [id number] [place] [address] [place] Creatinine [Mass/Vol] 0.82 mg/dL Normal 0.58-0.96 [facility] Comment on above: Order Comment: Fan meade Type: BLOOD SPECIMENOrdering Facility: [facility] Address: [address] [place] [address] Performed By: #### 2 4323-8 ####[facility] LABCLIA [id number] [place] [address] [place] Creatinine and Glomerular filtration rate.predicted panel (S/P/Bld) 68 mL/min/1.73m??? Normal >=60 [facility] Comment on above: Order Comment: Fan meade Type: BLOOD SPECIMENOrdering Facility: [facility] Address: [address] [place] [address] Result Comment: Hilda mated Glomerular Filtration Rate [...] 2 4323-8 ####[facility] LABCLIA [id number] [place] [id number] [place] Glucose [Mass/Vol] 276 mg/dL High 74-99 [facility] Comment on above: Order Comment: Fan meade Type: BLOOD SPECIMENOrdering Facility: [facility] Address: [address] [place] [address] Result Comment: The [place] [employer] (ADA) provides guidance for cutoff [...] Standards of Medical Care in Diabetes 2016, [place] [employer]. Diabetes Care. 2016.39(Suppl 1). Performed By: #### 2 4323-8 ####[facility] LABCLIA [id number] [place] [address] [place] Potassium [Moles/Vol] 5.1 mmol/L Normal 3.7-5.1 [facility] Comment on above: Order Comment: Speci men Type: BLOOD SPECIMENOrdering Facility: [facility] Address: [address] [place] [address] Performed By: #### 2 4323-8 ####[facility] LABCLIA [id number] [place] [address] [place] Protein [Mass/Vol] 5.9 g/dL Low 6.3-8.0 [facility] Comment on above: Order Comment: Speci men Type: BLOOD SPECIMENOrdering Facility: [facility] Address: [address] [place] [address] Performed By: #### 2 4323-8 ####[facility] LABIA [id number] [place] [address] [place] Sodium [Moles/Vol] 137 mmol/L Normal 136-144 [facility] Comment on above: Order Comment: Speci men Type: BLOOD SPECIMENOrdering Facility: [facility] Address: [address] [place] [address] Performed By: #### 2 4323-8 ####[facility] LABIA [id number] [place] [id number] [place] Urea nitrogen [Mass/Vol] 29 mg/dL High 7-21 [facility] Comment on above: Order Comment: Speci men Type: BLOOD SPECIMENOrdering Facility: [facility] Address: [address] [place] [address] Performed By: #### 2 4323-8 ####[facility] LABCLIA [id number] [place] [address] [place] ESR Westergren method (Bld) [Velocity]on 01-02-2025 ESR (Bld) [Velocity] 47 mm/h High [facility] Interpretation and review of laboratory results Abnormal [facility] ESR (Bld) [Velocity] 47 mm/h High 0-20 [facility] Comment on above: Order Comment: Speci men Type: BLOOD SPECIMEN [facility] Address: [address] [place] [address] Performed By: #### 5 7021-8 #### [facility] CLIA [id number] [facility] [place] [address] [place] Ferritin SerPl-mCncon 2024 Ferritin [Mass/Vol] 865.0 ng/mL High 14.7-205.1 [facility] Comment on above: Order Comment: Speci men Type: BLOOD SPECIMENOrdering Facility: [facility] Address: [address] [place] [address] Performed By: #### 2 132-9, 2276-4, 65972-4, 2284-8 ####[facility] LABCLIA [id number] [place] [address] [place] Folate SerPl-mCncon 01-02-20 25 Folate [Mass/Vol] 14.8 ng/mL Normal >4.7 [facility] Comment on above: Order Comment: Speci men Type: BLOOD SPECIMENOrdering Facility: [facility] Address: [address] [place] [address] Performed By: #### 2 132-9, 2276-4, 79963-7, 2284-8 ####[facility] LABIA [id number] [place] [address] [place] Iron and Iron binding capaci ty panelon 01-02-2025 Iron [Mass/Vol] 46 ug/dL Normal 41-186 [facility] Comment on above: Order Comment: Speci men Type: BLOOD SPECIMENOrdering Facility: [facility] Address: [address] [place] [address] Performed By: #### 2 132-9, 2276-4, 08734-9, 2284-8 ####[facility] LABCLIA [id number] [place] [address] [place] Iron binding capacity [Mass/Vol] 245 ug/dL Normal 232-386 [facility] Comment on above: Order Comment: Speci men Type: BLOOD SPECIMENOrdering Facility: [facility] Address: [address] [place] [address] Performed By: #### 2 132-9, 2276-4, 69014-0, 2284-8 ####[facility] LABCLIA [id number] [place] [address] [place] Iron/TIBC [Molar ratio] 18.8 % Normal 15.0-57.0 [facility] Comment on above: Order Comment: Speci men Type: BLOOD SPECIMENOrdering Facility: [facility] Address: [address] [place] [address] Performed By: #### 2 132-9, 2276-4, 66913-4, 2284-8 ####[facility] LABCLIA [id number] [place] [address] [place] TYPE + SCREENon 01-02-2025 ABO group Nom (Bld) O [facility] Blood group antibody screen Ql Negative [facility] Rh Nom (Bld) Positive [facility] Type and Screen Expiration 01/05/2025 23:59 [facility] ABO O Normal [facility] Comment on above: Order Comment: Speci men Type: BLOOD SPECIMENOrdering Facility: [facility] Address: [address] [place] [address] Performed By: #### T SCR ####[facility] BLOOD BANKIA [id number] [place] [address] [place] Rh Nom (Bld) Positive Normal [facility] Comment on above: Order Comment: Speci men Type: BLOOD SPECIMENOrdering Facility: [facility] Address: [address] [place] [address] Performed By: #### T SCR ####[facility] BLOOD BANKCLIA [id number] [place] [id number] [place] TYPE AND SCREEN EXPIRATION 01/05/2025 23:59 Normal [facility] Comment on above: Order Comment: Speci men Type: BLOOD SPECIMENOrdering Facility: [facility] Address: [address] [place] [address] Performed By: #### T SCR ####[facility] BLOOD BANKCLIA [id number] [place] [address] [place] VITAMIN B6/PYRIDOXINon 01-02 VITAMIN B6 13.8 nmol/L Low 20.0-125.0 [facility] Comment on above: Order Comment: Speci men Type: BLOOD SPECIMEN [facility] Address: [address] [place] [address] Result Comment: INTE RPRETIVE INFORMATION: Vitamin B6 (Pyridoxal 5-Phosphate) Pyridoxal 5'-phosphate measured in a specimen collected following an 8-hour or overnight fast accurately indicates vitamin B6 nutritional status. Non-fasting specimen concentration reflects recent vitamin intake. This test was developed and its performance characteristics determined by [facility]. It has not been cleared or approved by the [place] Food and Drug Administration. This test was performed in a CLIA certified laboratory and is intended for clinical purposes. Performed By: [facility] [address] [place] [id number] Senior Reactor Operator: Marcellus Raza MD, PhD CLIA Number: [id number] Performed By: #### 1 3964-2 #### [facility] CLIA [id number] [address] [place] [address] [place] Vit B12 SerPl-mCncon 025 Cobalamin (Vitamin B12) [Mass/Vol] 582 pg/mL Normal 232-1245 [facility] Comment on above: Order Comment: Speci men Type: BLOOD SPECIMENOrdering Facility: [facility] Address: [address] [place] [address] Performed By: #### 2 132-9, 2276-4, 40419-3, 2284-8 ####[facility] LABCLIA [id number] [place] [address] [place] Zinc SerPl-mCncon 01-02-2025 Zinc [Mass/Vol] 56 ug/dL Low 60-120 [facility] Comment on above: Order Comment: Speci men Type: BLOOD SPECIMENOrdering Facility: [facility] Address: [address] [place] [address] Result Comment: This test was developed, and its performance characteristics determined by the [facility] Department of Pathology and Laboratory Medicine. It has not been cleared or approved by the FDA. The [facility] Department of Pathology and Laboratory Medicine is regulated under CLIA as qualified to perform high-complexity testing. This test is used for clinical purposes. It should not be regarded as investigational or for research. Performed By: #### 5 763-8, COPPER ####[facility] LABCLIA [id number] [place] [address] [place] Absolute lymphocyte countOrd ered By: Mario Mak on 2024 Lymphocytes Auto (Unsp spec) [#/Vol] 0.88 10*3/uL 0.83-4.51 [facility] Absolute neutrophil countOrd ered By: Mario Mak on 2024 Neutrophils (Bld) [#/Vol] 5.4 10*3/uL 2.0-7.7 [facility] Albumin to globulin ratioOrd ered By: Mario Mak on 2024 Albumin/Globulin [Mass ratio] 0.7 {ratio} Low 0.9-2.4 [facility] Automated lymphocyte count a s percentage of total leukocytesOrdered By: Mario Mak on 2024 Lymphocytes/100 WBC Auto (Unsp spec) 11.9 % Low 19-41 [facility] Basophil percentageOrdered B y: Mario Mak on 2024 Basophils/100 WBC (Bld) 0.3 % 0-1 [facility] Bilirubin, totalOrdered By: Mario Mak on 2024 Bilirubin [Mass/Vol] 0.30 mg/dL 0.20-1.00 [facility] Comment on above: For patients on eltr ombopag therapy, use of Dimension [place] TBIL is not recommended. Blood urea nitrogen (BUN)/cr eatinine ratioOrdered By: Mario Mak on 2024 Urea nitrogen/Creatinine [Mass ratio] 30.9 mg/mg High 10-20 [facility] CBC W/Diff, Automatedon 12-15 Absolute Lymph 0.88 X10 3/uL Normal 0.83-4.51 [facility] Comment on above: Order Comment: 107.1 Performed By: #### L 503.6030, L503.0105, L506.0250, L500.4050, L100.0100, L101.9900 #### [facility] [address] [place], [address] Absolute Neut 5.4 X10 3/uL Normal 2.0-7.7 [facility] Comment on above: Order Comment: 107.1 Performed By: #### L 503.6030, L503.0105, L506.0250, L500.4050, L100.0100, L101.9900 #### [facility] [address] [place], [address] Basophils/100 WBC (Bld) 0.3 % Normal 0-1 [facility] Comment on above: Order Comment: 107.1 Performed By: #### L 503.6030, L503.0105, L506.0250, L500.4050, L100.0100, L101.9900 #### [facility] [address] [place], [address] Eosinophils/100 WBC (Bld) 6.3 % High 0-5 [facility] Comment on above: Order Comment: 107.1 Performed By: #### L 503.6030, L503.0105, L506.0250, L500.4050, L100.0100, L101.9900 #### [facility] [address] [place], [address] Erythrocyte distribution width (RBC) [Ratio] 17.1 % High 11.6-14.6 [facility] Comment on above: Order Comment: 107.1 Performed By: #### L 503.6030, L503.0105, L506.0250, L500.4050, L100.0100, L101.9900 #### [facility] [address] [place], [address] Hematocrit (Bld) [Volume fraction] 29.8 % Low 37-47 [facility] Comment on above: Order Comment: 107.1 Performed By: #### L 503.6030, L503.0105, L506.0250, L500.4050, L100.0100, L101.9900 #### [facility] [address] [place], [address] Hemoglobin (Bld) [Mass/Vol] 9.4 g/dL Low 12.0-15.0 [facility] Comment on above: Order Comment: 107.1 Performed By: #### L 503.6030, L503.0105, L506.0250, L500.4050, L100.0100, L101.9900 #### [facility] [address] [place], [address] IG% 1.100 High 0.0-0.9 [facility] Comment on above: Order Comment: 107.1 Result Comment: IG% - Immature Granulocytes (promyelocytes, myelocytes and metamyelocytes) > 1% indicates that a LEFT SHIFT is Present. Performed By: #### L 503.6030, L503.0105, L506.0250, L500.4050, L100.0100, L101.9900 #### [facility] [address] [place], [address] Lymphocytes/100 WBC (Bld) 11.9 % Low 19-41 [facility] Comment on above: Order Comment: 107.1 Performed By: #### L 503.6030, L503.0105, L506.0250, L500.4050, L100.0100, L101.9900 #### [facility] [address] [place], [address] MCH (RBC) [Entitic mass] 28.4 pg Normal 27.0-32.0 [facility] Comment on above: Order Comment: 107.1 Performed By: #### L 503.6030, L503.0105, L506.0250, L500.4050, L100.0100, L101.9900 #### [facility] [address] [place], [address] MCHC (RBC) [Mass/Vol] 31.5 g/dL Low 32-36 [facility] Comment on above: Order Comment: 107.1 Performed By: #### L 503.6030, L503.0105, L506.0250, L500.4050, L100.0100, L101.9900 #### [facility] [address] [place], [address] MCV (RBC) [Entitic vol] 90.0 fL Normal 81-99 [facility] Comment on above: Order Comment: 107.1 Performed By: #### L 503.6030, L503.0105, L506.0250, L500.4050, L100.0100, L101.9900 #### [facility] [address] [place], [address] Monocytes/100 WBC (Bld) 7.5 % Normal 0-10 [facility] Comment on above: Order Comment: 107.1 Performed By: #### L 503.6030, L503.0105, L506.0250, L500.4050, L100.0100, L101.9900 #### [facility] [address] [place], [address] Neutrophils/100 WBC (Bld) 72.9 % High 47-70 [facility] Comment on above: Order Comment: 107.1 Performed By: #### L 503.6030, L503.0105, L506.0250, L500.4050, L100.0100, L101.9900 #### [facility] [address] [place], [address] Nucleated RBC (Bld) [#/Vol] 0 10*3/uL Normal 0-5 [facility] Comment on above: Order Comment: 107.1 Performed By: #### L 503.6030, L503.0105, L506.0250, L500.4050, L100.0100, L101.9900 #### [facility] [address] [place], [address] Platelet mean volume (Bld) [Entitic vol] 9.2 fL Normal 6.2-12.0 [facility] Comment on above: Order Comment: 107.1 Performed By: #### L 503.6030, L503.0105, L506.0250, L500.4050, L100.0100, L101.9900 #### [facility] [address] [place], [address] Platelets (Bld) [#/Vol] 361 10*3/uL Normal 150-450 [facility] Comment on above: Order Comment: 107.1 Performed By: #### L 503.6030, L503.0105, L506.0250, L500.4050, L100.0100, L101.9900 #### [facility] [address] [place], [address] RBC (Bld) [#/Vol] 3.31 10*6/uL Low 4.2-5.4 [facility] Comment on above: Order Comment: 107.1 Performed By: #### L 503.6030, L503.0105, L506.0250, L500.4050, L100.0100, L101.9900 #### [facility] [address] [place], [address] RDW SD 56.3 fl High 35.1-43.9 [facility] Comment on above: Order Comment: 107.1 Performed By: #### L 503.6030, L503.0105, L506.0250, L500.4050, L100.0100, L101.9900 #### [facility] [address] [place], [address] WBC (Bld) [#/Vol] 7.4 10*3/uL Normal 4.4-11.0 [facility] Comment on above: Order Comment: 107.1 Performed By: #### L 503.6030, L503.0105, L506.0250, L500.4050, L100.0100, L101.9900 #### [facility] [address] [place], [address] Carbon dioxide measurementOr dered By: Mario Mak on 2024 CO2 [Moles/Vol] 28.0 mmol/L 21.0-32.0 [facility] Chloride measurementOrdered By: Mario Mak on 2024 Chloride [Moles/Vol] 102 mmol/L 98-107 [facility] Comprehensive Metabolic Prof ilon 2024 Albumin [Mass/Vol] 2.1 g/dL Low 3.2-5.0 [facility] Comment on above: Order Comment: 107.1 Performed By: #### L 503.6030, L503.0105, L506.0250, L500.4050, L100.0100, L101.9900 #### [facility] [address] [place], [address] Albumin/Globulin [Mass ratio] 0.7 {ratio} Low 0.9-2.4 [facility] Comment on above: Order Comment: 107.1 Performed By: #### L 503.6030, L503.0105, L506.0250, L500.4050, L100.0100, L101.9900 #### [facility] [address] [place], [address] ALK P 102 U/L Normal 45-117 [facility] Comment on above: Order Comment: 107.1 Performed By: #### L 503.6030, L503.0105, L506.0250, L500.4050, L100.0100, L101.9900 #### [facility] [address] [place], [address] ALT [Catalytic activity/Vol] U/L Low 13-56 [facility] Comment on above: Order Comment: 107.1 Performed By: #### L 503.6030, L503.0105, L506.0250, L500.4050, L100.0100, L101.9900 #### [facility] [address] [place], [address] AST [Catalytic activity/Vol] 15 U/L Normal 15-37 [facility] Comment on above: Order Comment: 107.1 Performed By: #### L 503.6030, L503.0105, L506.0250, L500.4050, L100.0100, L101.9900 #### [facility] [address] [place], [address] Bilirubin [Mass/Vol] 0.30 mg/dL Normal 0.20-1.00 [facility] Comment on above: Order Comment: 107.1 Result Comment: For patients on eltrombopag therapy, use of Dimension [place] TBIL is not recommended. Performed By: #### L 503.6030, L503.0105, L506.0250, L500.4050, L100.0100, L101.9900 #### [facility] [address] [place], [address] BUN/CRE 30.9 RATIO High 10-20 [facility] Comment on above: Order Comment: 107.1 Performed By: #### L 503.6030, L503.0105, L506.0250, L500.4050, L100.0100, L101.9900 #### [facility] [address] [place], [address] CA,Total 8.7 mg/dL Normal 8.5-10.1 [facility] Comment on above: Order Comment: 107.1 Performed By: #### L 503.6030, L503.0105, L506.0250, L500.4050, L100.0100, L101.9900 #### [facility] [address] [place], [address] Chloride [Moles/Vol] 102 mmol/L Normal 98-107 [facility] Comment on above: Order Comment: 107.1 Performed By: #### L 503.6030, L503.0105, L506.0250, L500.4050, L100.0100, L101.9900 #### [facility] [address] [place], [address] CO2 [Moles/Vol] 28.0 mmol/L Normal 21.0-32.0 [facility] Comment on above: Order Comment: 107.1 Performed By: #### L 503.6030, L503.0105, L506.0250, L500.4050, L100.0100, L101.9900 #### [facility] [address] [place], [address] Creatinine [Mass/Vol] 0.87 mg/dL Normal 0.55-1.02 [facility] Comment on above: Order Comment: 107.1 Result Comment: The validity of the calculated GFR GFRAA in patients over 70 years has not been determined. Clinical correlation is essential. Performed By: #### L 503.6030, L503.0105, L506.0250, L500.4050, L100.0100, L101.9900 #### [facility] [address] [place], [address] EST GFR - AA 79 mL/min Normal >60 [facility] Comment on above: Order Comment: 107.1 Result Comment: Afri can [place] GFR Calc Performed By: #### L 503.6030, L503.0105, L506.0250, L500.4050, L100.0100, L101.9900 #### [facility] [address] [place], [address] GAP 7 Normal 5-15 [facility] Comment on above: Order Comment: 107.1 Performed By: #### L 503.6030, L503.0105, L506.0250, L500.4050, L100.0100, L101.9900 #### [facility] [address] [place], [address] GFR/1.73 sq M.predicted among non-blacks MDRD (S/P/Bld) [Vol rate/Area] 65 mL/min/{1.73_m2} Normal >60 [facility] Comment on above: Order Comment: 107.1 Result Comment: Non- GFR Calc Performed By: #### L 503.6030, L503.0105, L506.0250, L500.4050, L100.0100, L101.9900 #### [facility] [address] [place], [address] Globulin (S) [Mass/Vol] 3.1 g/dL Normal 2.2-4.2 [facility] Comment on above: Order Comment: 107.1 Performed By: #### L 503.6030, L503.0105, L506.0250, L500.4050, L100.0100, L101.9900 #### [facility] [address] [place], [address] Glucose [Mass/Vol] 192 mg/dL High 74-106 [facility] Comment on above: Order Comment: 107.1 Result Comment: Fast ing Glucose result greater than or equal to 126 mg/dL suggests DIABETES MELLITUS per A.D.A. criteria. Performed By: #### L 503.6030, L503.0105, L506.0250, L500.4050, L100.0100, L101.9900 #### [facility] [address] [place], [address] Potassium [Moles/Vol] 3.9 mmol/L Normal 3.5-5.1 [facility] Comment on above: Order Comment: 107.1 Performed By: #### L 503.6030, L503.0105, L506.0250, L500.4050, L100.0100, L101.9900 #### [facility] [address] [place], [address] Sodium [Moles/Vol] 137 mmol/L Normal 136-145 [facility] Comment on above: Order Comment: 107.1 Performed By: #### L 503.6030, L503.0105, L506.0250, L500.4050, L100.0100, L101.9900 #### [facility] [address] [place], [address] T PROT 5.2 g/dL Low 6.4-8.2 [facility] Comment on above: Order Comment: 107.1 Performed By: #### L 503.6030, L503.0105, L506.0250, L500.4050, L100.0100, L101.9900 #### [facility] [address] [place], [address] Urea nitrogen [Mass/Vol] 27 mg/dL High 7-18 [facility] Comment on above: Order Comment: 107.1 Performed By: #### L 503.6030, L503.0105, L506.0250, L500.4050, L100.0100, L101.9900 #### [facility] [address] [place], [place], [address] Eosinophil percentageOrdered By: Mario Mak on 2024 Eosinophils/100 WBC (Bld) 6.3 % High 0-5 [facility] Erythrocyte Sed Rateon 12-31 SED RATE 27 mm/hr Normal 0-30 [facility] Comment on above: Order Comment: 107.1 Performed By: #### L 503.6030, L503.0105, L506.0250, L500.4050, L100.0100, L101.9900 #### [facility] [address] [place], [place], [address] Erythrocyte distribution wid th (RBC) [Ratio]Ordered By: Mario Mak on 2024 Erythrocyte distribution width (RBC) [Entitic vol] 56.3 fL High 35.1-43.9 [facility] Erythrocyte distribution wid th ratioOrdered By: Mario Mak on 2024 Erythrocyte distribution width (RBC) [Ratio] 17.1 % High 11.6-14.6 [facility] Erythrocyte distribution wid th standard deviationOrdered By: Mario Mak on 2024 Erythrocyte distribution width (RBC) [Ratio] 56.3 fl High 35.1-43.9 [facility] Erythrocyte sedimentation ra teOrdered By: Mario Mak on 2024 ESR (Bld) [Velocity] 27 mm/h 0-30 [facility] Estimated glomerular filtrat ion rate (GFR) AmericanOrdered By: Mario Mak on 2024 Estimated GFR (MDRD) Amer 79 mL/min >60 [facility] Comment on above: GFR Calc Glomerular filtration rate ( GFR) estimationOrdered By: Mario Mak on 2024 Estimated GFR (MDRD) Non-Af Amer 65 mL/min >60 [facility] Comment on above: Non- GFR Calc GFR/1.73 sq M.predicted among non-blacks MDRD (S/P/Bld) [Vol rate/Area] 65 mL/min/{1.73_m2} >60 [facility] Comment on above: Non- GFR Calc Glucose measurementOrdered B y: Mario Mak on 2024 Glucose [Mass/Vol] 192 mg/dL High 74-106 [facility] Comment on above: Fasting Glucose resu lt greater than or equal to 126 mg/dL suggests DIABETES MELLITUS per A.D.A. criteria. Hematocrit Auto (Bld) [Volum e fraction]Ordered By: Mario Mak on 2024 Hematocrit (Bld) [Volume fraction] 29.8 % Low 37-47 [facility] Hemoglobin measurementOrdere d By: Mario Mak on 2024 Hemoglobin (Bld) [Mass/Vol] 9.4 g/dL Low 12.0-15.0 [facility] Immature granulocytes/100 WB C Auto (Bld)Ordered By: Mario Mak on 2024 Immature granulocytes/100 WBC (Bld) 1.100 % High 0.0-0.9 [facility] Comment on above: IG% - Immature Granu locytes (promyelocytes, myelocytes and metamyelocytes) > 1% indicates that a LEFT SHIFT is Present. Laboratory - Chemistry and C hemistry - challengeOrdered By: Mario Mak on 2024 AST [Catalytic activity/Vol] 15 U/L 15-37 [facility] Lymphocytes Auto (Unsp spec) [#/Vol]Ordered By: Mario Mka on 2024 Lymphocytes (Bld) [#/Vol] 0.88 10*3/uL 0.83-4.51 [facility] Lymphocytes/100 WBC Auto (Un sp spec)Ordered By: Mario Mak on 2024 Lymphocytes/100 WBC (Bld) 11.9 % Low 19-41 [facility] MCV (mean corpuscular volume ) determinationOrdered By: Mario Mak on 2024 MCV (RBC) [Entitic vol] 90.0 fL 81-99 [facility] Mean corpuscular hemoglobin (MCH) determinationOrdered By: Mario Mak on 2024 MCH (RBC) [Entitic mass] 28.4 pg 27.0-32.0 [facility] Mean corpuscular hemoglobin concentration (MCHC) determinationOrdered By: Mario Mak on 2024 MCHC (RBC) [Mass/Vol] 31.5 g/dL Low 32-36 [facility] Mean platelet volume determi nationOrdered By: Maroi Mak on 2024 Platelet mean volume (Bld) [Entitic vol] 9.2 fL 6.2-12.0 [facility] Monocyte percentageOrdered B y: Mario Mak on 2024 Monocytes/100 WBC (Bld) 7.5 % 0-10 [facility] Neutrophil percentageOrdered By: Mario Mak on 2024 Neutrophils/100 WBC (Bld) 72.9 % High 47-70 [facility] Nucleated red blood cell per centageOrdered By: Mario Mak on 2024 Nucleated RBC/100 WBC (Bld) [Ratio] 0 % 0-5 [facility] Platelet countOrdered By: Moreno on 2024 Platelets (Bld) [#/Vol] 361 10*3/uL 150-450 [facility] Potassium measurementOrdered By: Mario Mak on 2024 Potassium [Moles/Vol] 3.9 mmol/L 3.5-5.1 [facility] RBC Auto (Bld) [#/Vol]Ordere d By: Mario Mak on 2024 RBC (Bld) [#/Vol] 3.31 10*6/uL Low 4.2-5.4 [facility] Serum anion gap measurementO rdered By: Mario Mak on 2024 Anion gap [Moles/Vol] 7 mmol/L 5-15 [facility] Serum globulin measurementOr dered By: Mario Mak on 2024 Globulin (S) [Mass/Vol] 3.1 g/dL 2.2-4.2 [facility] Serum or plasma alanine melara otransferase (ALT) measurementOrdered By: Mario Mak on 2024 ALT [Catalytic activity/Vol] U/L Low 13-56 [facility] Serum or plasma albumin roma urement (mass/volume)Ordered By: Mario Mak on 2024 Albumin [Mass/Vol] 2.1 g/dL Low 3.2-5.0 [facility] Serum or plasma alkaline krystal sphatase measurementOrdered By: Mario Mak on 2024 ALP [Catalytic activity/Vol] 102 U/L 45-117 [facility] Serum or plasma calcium roma urement (mass/volume)Ordered By: Mario Mak on 2024 Calcium [Mass/Vol] 8.7 mg/dL 8.5-10.1 [facility] Serum or plasma creatinine m easurement (mass/volume)Ordered By: Mario Mak 2024 Creatinine [Mass/Vol] 0.87 mg/dL 0.55-1.02 [facility] Comment on above: The validity of the calculated GFR & GFRAA in patients over 70 years has not been determined. Clinical correlation is essential. Serum or plasma urea nitroge n measurement (mass/volume)Ordered By: Mario Mak on 2024 Urea nitrogen [Mass/Vol] 27 mg/dL High 7-18 [facility] Sodium levelOrdered By: Mario Mak on 2024 Sodium [Moles/Vol] 137 mmol/L 136-145 [facility] Total proteinOrdered By: Shwetha Mak on 2024 Protein [Mass/Vol] 5.2 g/dL Low 6.4-8.2 [facility] White blood cell (WBC) count Ordered By: Mario Mak on 2024 WBC (Bld) [#/Vol] 7.4 10*3/uL 4.4-11.0 [facility] CNOVon 12-26-2024 CNOV [facility] 12-26-2024 CNPN Telephone (INTMIN) YUSUF MEDINA ([id number]) 1935 F [address] Date Time Provider Department 12/26/24 MIGDALIA CRAMER During your visit today, we recorded the following information about you: Linda Perez, Nikia Q 12/26/2024 9:24 AM Signed Patients caregiver demetria tapia calling to have her [employer] [place] message she sent below addressed. HiYusuf's sons and are in town to make an assessment whether she is able to go home from rehab. Can you talk with them to help with their decision? Please call Nathaniel Medina at [phone]. They are here till Tuesday 12 noon. [...] this patient by: CAREGIVER José Miguel Swanson [facility] Problem List As Of [...] 02/19/2011 02/12/2014 (more content not included)... Normal [facility] Absolute lymphocyte countOrd ered By: Mario Mak on 12-24-2024 Lymphocytes Auto (Unsp spec) [#/Vol] 0.98 10*3/uL 0.83-4.51 [facility] Absolute neutrophil countOrd ered By: Mario Mak on 12-24-2024 Neutrophils (Bld) [#/Vol] 3.8 10*3/uL 2.0-7.7 [facility] Albumin to globulin ratioOrd ered By: Mario Mak on 12-24-2024 Albumin/Globulin [Mass ratio] 0.6 {ratio} Low 0.9-2.4 [facility] Automated lymphocyte count a s percentage of total leukocytesOrdered By: Mario Mak on 12-24-2024 Lymphocytes/100 WBC Auto (Unsp spec) 17.8 % Low 19-41 [facility] Basophil percentageOrdered B y: Mario Mak on 12-24-2024 Basophils/100 WBC (Bld) 0.5 % 0-1 [facility] Bilirubin, totalOrdered By: Mario Mak on 12-24-2024 Bilirubin [Mass/Vol] 0.30 mg/dL 0.20-1.00 [facility] Comment on above: For patients on eltr ombopag therapy, use of Dimension [place] TBIL is not recommended. Blood urea nitrogen (BUN)/cr eatinine ratioOrdered By: Mario Mak on 12-24-2024 Urea nitrogen/Creatinine [Mass ratio] 30.0 mg/mg High 10-20 [facility] CBC W/Diff, Automatedon 12-15 Absolute Lymph 0.98 X10 3/uL Normal 0.83-4.51 [facility] Comment on above: Order Comment: 107.1 Performed By: #### L 503.6030, L503.0105, L506.0250, L500.4050, L100.0100, L101.9900 #### [facility] [address] [place], [address] Absolute Neut 3.8 X10 3/uL Normal 2.0-7.7 [facility] Comment on above: Order Comment: 107.1 Performed By: #### L 503.6030, L503.0105, L506.0250, L500.4050, L100.0100, L101.9900 #### [facility] [address] [place], [address] Basophils/100 WBC (Bld) 0.5 % Normal 0-1 [facility] Comment on above: Order Comment: 107.1 Performed By: #### L 503.6030, L503.0105, L506.0250, L500.4050, L100.0100, L101.9900 #### [facility] [address] [place], [address] Eosinophils/100 WBC (Bld) 5.1 % High 0-5 [facility] Comment on above: Order Comment: 107.1 Performed By: #### L 503.6030, L503.0105, L506.0250, L500.4050, L100.0100, L101.9900 #### [facility] [address] [place], [address] Erythrocyte distribution width (RBC) [Ratio] 16.8 % High 11.6-14.6 [facility] Comment on above: Order Comment: 107.1 Performed By: #### L 503.6030, L503.0105, L506.0250, L500.4050, L100.0100, L101.9900 #### [facility] [address] [place], [address] Hematocrit (Bld) [Volume fraction] 27.5 % Low 37-47 [facility] Comment on above: Order Comment: 107.1 Performed By: #### L 503.6030, L503.0105, L506.0250, L500.4050, L100.0100, L101.9900 #### [facility] [address] [place], [address] Hemoglobin (Bld) [Mass/Vol] 8.9 g/dL Low 12.0-15.0 [facility] Comment on above: Order Comment: 107.1 Performed By: #### L 503.6030, L503.0105, L506.0250, L500.4050, L100.0100, L101.9900 #### [facility] [address] [place], [address] IG% 0.900 Normal 0.0-0.9 [facility] Comment on above: Order Comment: 107.1 Result Comment: IG% - Immature Granulocytes (promyelocytes, myelocytes and metamyelocytes) > 1% indicates that a LEFT SHIFT is Present. Performed By: #### L 503.6030, L503.0105, L506.0250, L500.4050, L100.0100, L101.9900 #### [facility] [address] [place], [address] Lymphocytes/100 WBC (Bld) 17.8 % Low 19-41 [facility] Comment on above: Order Comment: 107.1 Performed By: #### L 503.6030, L503.0105, L506.0250, L500.4050, L100.0100, L101.9900 #### [facility] [address] [place], [address] MCH (RBC) [Entitic mass] 29.0 pg Normal 27.0-32.0 [facility] Comment on above: Order Comment: 107.1 Performed By: #### L 503.6030, L503.0105, L506.0250, L500.4050, L100.0100, L101.9900 #### [facility] [address] [place], [address] MCHC (RBC) [Mass/Vol] 32.4 g/dL Normal 32-36 [facility] Comment on above: Order Comment: 107.1 Performed By: #### L 503.6030, L503.0105, L506.0250, L500.4050, L100.0100, L101.9900 #### [facility] [address] [place], [address] MCV (RBC) [Entitic vol] 89.6 fL Normal 81-99 [facility] Comment on above: Order Comment: 107.1 Performed By: #### L 503.6030, L503.0105, L506.0250, L500.4050, L100.0100, L101.9900 #### [facility] [address] [place], [address] Monocytes/100 WBC (Bld) 7.3 % Normal 0-10 [facility] Comment on above: Order Comment: 107.1 Performed By: #### L 503.6030, L503.0105, L506.0250, L500.4050, L100.0100, L101.9900 #### [facility] [address] [place], [address] Neutrophils/100 WBC (Bld) 68.4 % Normal 47-70 [facility] Comment on above: Order Comment: 107.1 Performed By: #### L 503.6030, L503.0105, L506.0250, L500.4050, L100.0100, L101.9900 #### [facility] [address] [place], [address] Nucleated RBC (Bld) [#/Vol] 0 10*3/uL Normal 0-5 [facility] Comment on above: Order Comment: 107.1 Performed By: #### L 503.6030, L503.0105, L506.0250, L500.4050, L100.0100, L101.9900 #### [facility] [address] [place], [address] Platelet mean volume (Bld) [Entitic vol] 9.3 fL Normal 6.2-12.0 [facility] Comment on above: Order Comment: 107.1 Performed By: #### L 503.6030, L503.0105, L506.0250, L500.4050, L100.0100, L101.9900 #### [facility] [address] [place], [address] Platelets (Bld) [#/Vol] 309 10*3/uL Normal 150-450 [facility] Comment on above: Order Comment: 107.1 Performed By: #### L 503.6030, L503.0105, L506.0250, L500.4050, L100.0100, L101.9900 #### [facility] [address] [place], [address] RBC (Bld) [#/Vol] 3.07 10*6/uL Low 4.2-5.4 [facility] Comment on above: Order Comment: 107.1 Performed By: #### L 503.6030, L503.0105, L506.0250, L500.4050, L100.0100, L101.9900 #### [facility] [address] [place], [address] RDW SD 55.5 fl High 35.1-43.9 [facility] Comment on above: Order Comment: 107.1 Performed By: #### L 503.6030, L503.0105, L506.0250, L500.4050, L100.0100, L101.9900 #### [facility] [address] [place], [address] WBC (Bld) [#/Vol] 5.5 10*3/uL Normal 4.4-11.0 [facility] Comment on above: Order Comment: 107.1 Performed By: #### L 503.6030, L503.0105, L506.0250, L500.4050, L100.0100, L101.9900 #### [facility] [address] [place], [address] Carbon dioxide measurementOr dered By: Mario Mak on 12-24-2024 CO2 [Moles/Vol] 29.0 mmol/L 21.0-32.0 [facility] Chloride measurementOrdered By: Mario Mak on 12-24-2024 Chloride [Moles/Vol] 106 mmol/L 98-107 [facility] Comprehensive Metabolic Prof ilon 12-24-2024 Albumin [Mass/Vol] 2.0 g/dL Low 3.2-5.0 [facility] Comment on above: Order Comment: 107.1 Performed By: #### L 503.6030, L503.0105, L506.0250, L500.4050, L100.0100, L101.9900 #### [facility] [address] [place], [address] Albumin/Globulin [Mass ratio] 0.6 {ratio} Low 0.9-2.4 [facility] Comment on above: Order Comment: 107.1 Performed By: #### L 503.6030, L503.0105, L506.0250, L500.4050, L100.0100, L101.9900 #### [facility] [address] [place], [address] ALK P 108 U/L Normal 45-117 [facility] Comment on above: Order Comment: 107.1 Performed By: #### L 503.6030, L503.0105, L506.0250, L500.4050, L100.0100, L101.9900 #### [facility] [address] [place], [address] ALT [Catalytic activity/Vol] U/L Low 13-56 [facility] Comment on above: Order Comment: 107.1 Performed By: #### L 503.6030, L503.0105, L506.0250, L500.4050, L100.0100, L101.9900 #### [facility] [address] [place], [address] AST [Catalytic activity/Vol] 17 U/L Normal 15-37 [facility] Comment on above: Order Comment: 107.1 Performed By: #### L 503.6030, L503.0105, L506.0250, L500.4050, L100.0100, L101.9900 #### [facility] [address] [place], [address] Bilirubin [Mass/Vol] 0.30 mg/dL Normal 0.20-1.00 [facility] Comment on above: Order Comment: 107.1 Result Comment: For patients on eltrombopag therapy, use of Dimension [place] TBIL is not recommended. Performed By: #### L 503.6030, L503.0105, L506.0250, L500.4050, L100.0100, L101.9900 #### [facility] [address] [place], [address] BUN/CRE 30.0 RATIO High 10-20 [facility] Comment on above: Order Comment: 107.1 Performed By: #### L 503.6030, L503.0105, L506.0250, L500.4050, L100.0100, L101.9900 #### [facility] [address] [place], [address] CA,Total 8.8 mg/dL Normal 8.5-10.1 [facility] Comment on above: Order Comment: 107.1 Performed By: #### L 503.6030, L503.0105, L506.0250, L500.4050, L100.0100, L101.9900 #### [facility] [address] [place], [address] Chloride [Moles/Vol] 106 mmol/L Normal 98-107 [facility] Comment on above: Order Comment: 107.1 Performed By: #### L 503.6030, L503.0105, L506.0250, L500.4050, L100.0100, L101.9900 #### [facility] [address] [place], [address] CO2 [Moles/Vol] 29.0 mmol/L Normal 21.0-32.0 [facility] Comment on above: Order Comment: 107.1 Performed By: #### L 503.6030, L503.0105, L506.0250, L500.4050, L100.0100, L101.9900 #### [facility] [address] [place], [address] Creatinine [Mass/Vol] 0.83 mg/dL Normal 0.55-1.02 [facility] Comment on above: Order Comment: 107.1 Result Comment: The validity of the calculated GFR GFRAA in patients over 70 years has not been determined. Clinical correlation is essential. Performed By: #### L 503.6030, L503.0105, L506.0250, L500.4050, L100.0100, L101.9900 #### [facility] [address] [place], [address] EST GFR - AA 83 mL/min Normal >60 [facility] Comment on above: Order Comment: 107.1 Result Comment: Afri can [place] GFR Calc Performed By: #### L 503.6030, L503.0105, L506.0250, L500.4050, L100.0100, L101.9900 #### [facility] [address] [place], [address] GAP 7 Normal 5-15 [facility] Comment on above: Order Comment: 107.1 Performed By: #### L 503.6030, L503.0105, L506.0250, L500.4050, L100.0100, L101.9900 #### [facility] [address] [place], [address] GFR/1.73 sq M.predicted among non-blacks MDRD (S/P/Bld) [Vol rate/Area] 68 mL/min/{1.73_m2} Normal >60 [facility] Comment on above: Order Comment: 107.1 Result Comment: Non- GFR Calc Performed By: #### L 503.6030, L503.0105, L506.0250, L500.4050, L100.0100, L101.9900 #### [facility] [address] [place], [address] Globulin (S) [Mass/Vol] 3.4 g/dL Normal 2.2-4.2 [facility] Comment on above: Order Comment: 107.1 Performed By: #### L 503.6030, L503.0105, L506.0250, L500.4050, L100.0100, L101.9900 #### [facility] [address] [place], [address] Glucose [Mass/Vol] 76 mg/dL Normal 74-106 [facility] Comment on above: Order Comment: 107.1 Performed By: #### L 503.6030, L503.0105, L506.0250, L500.4050, L100.0100, L101.9900 #### [facility] [address] [place], [address] Potassium [Moles/Vol] 4.0 mmol/L Normal 3.5-5.1 [facility] Comment on above: Order Comment: 107.1 Performed By: #### L 503.6030, L503.0105, L506.0250, L500.4050, L100.0100, L101.9900 #### [facility] [address] [place], [address] Sodium [Moles/Vol] 141 mmol/L Normal 136-145 [facility] Comment on above: Order Comment: 107.1 Performed By: #### L 503.6030, L503.0105, L506.0250, L500.4050, L100.0100, L101.9900 #### [facility] [address] [place], [address] T PROT 5.4 g/dL Low 6.4-8.2 [facility] Comment on above: Order Comment: 107.1 Performed By: #### L 503.6030, L503.0105, L506.0250, L500.4050, L100.0100, L101.9900 #### [facility] [address] [place], [place], [id number] Urea nitrogen [Mass/Vol] 25 mg/dL High 7-18 [facility] Comment on above: Order Comment: 107.1 Performed By: #### L 503.6030, L503.0105, L506.0250, L500.4050, L100.0100, L101.9900 #### [facility] [address] [place], [address] Eosinophil percentageOrdered By: Mario Mak on 12-24-2024 Eosinophils/100 WBC (Bld) 5.1 % High 0-5 [facility] Erythrocyte Sed Rateon 12-24 SED RATE 38 mm/hr High 0-30 [facility] Comment on above: Order Comment: 107.1 Performed By: #### L 503.6030, L503.0105, L506.0250, L500.4050, L100.0100, L101.9900 #### [facility] [address] [place], [place], [id number] Erythrocyte distribution wid th (RBC) [Ratio]Ordered By: Mario Mak on 12-24-2024 Erythrocyte distribution width (RBC) [Entitic vol] 55.5 fL High 35.1-43.9 [facility] Erythrocyte distribution wid th ratioOrdered By: Mario Mak on 12-24-2024 Erythrocyte distribution width (RBC) [Ratio] 16.8 % High 11.6-14.6 [facility] Erythrocyte distribution wid th standard deviationOrdered By: Mario Mak on 12-24-2024 Erythrocyte distribution width (RBC) [Ratio] 55.5 fl High 35.1-43.9 [facility] Erythrocyte sedimentation ra teOrdered By: Mario Mak on 12-24-2024 ESR (Bld) [Velocity] 38 mm/h High 0-30 [facility] Estimated glomerular filtrat ion rate (GFR) AmericanOrdered By: Mario Mak on 12-24-2024 Estimated GFR (MDRD) Amer 83 mL/min >60 [facility] Comment on above: GFR Calc Folates, (Folic Acid)on 12-15 FOLATES 6.70 ng/mL Normal 3.1-55.4 [facility] Comment on above: Order Comment: 107.1 N Performed By: #### L 503.6030, L503.0105, L506.0250, L500.4050, L100.0100, L101.9900 #### [facility] [place], [place], [id number] Folic acid measurementOrdere d By: Mario Mak on 12-24-2024 Folate 6.70 ng/mL 3.1-55.4 [facility] Glomerular filtration rate ( GFR) estimationOrdered By: Mario Mak on 12-24-2024 Estimated GFR (MDRD) Non-Af Amer 68 mL/min >60 [facility] Comment on above: Non- GFR Calc GFR/1.73 sq M.predicted among non-blacks MDRD (S/P/Bld) [Vol rate/Area] 68 mL/min/{1.73_m2} >60 [facility] Comment on above: Non- GFR Calc Glucose measurementOrdered B y: Mario Mak on 12-24-2024 Glucose [Mass/Vol] 76 mg/dL 74-106 [facility] Hematocrit Auto (Bld) [Volum e fraction]Ordered By: Mario Mak on 12-24-2024 Hematocrit (Bld) [Volume fraction] 27.5 % Low 37-47 [facility] Hemoglobin measurementOrdere d By: Mario Mak on 12-24-2024 Hemoglobin (Bld) [Mass/Vol] 8.9 g/dL Low 12.0-15.0 [facility] Immature granulocytes/100 WB C Auto (Bld)Ordered By: Mario Mak on 12-24-2024 Immature granulocytes/100 WBC (Bld) 0.900 % 0.0-0.9 [facility] Comment on above: IG% - Immature Granu locytes (promyelocytes, myelocytes and metamyelocytes) > 1% indicates that a LEFT SHIFT is Present. Iron (Unsp spec) [Mass/Mass] Ordered By: Mario Mak on 12-24-2024 Iron [Mass/Vol] 58 ug/dL 50-170 [facility] Iron measurement (mass/mass) Ordered By: Mario Mak on 12-24-2024 Iron (Unsp spec) [Mass/Mass] 58 ug/dL 50-170 [facility] Iron saturation [Mass fracti on]Ordered By: Mario Mak on 12-24-2024 Iron Saturation 35.4 % 15.0-55.0 [facility] Iron+Iron Binding Capacityon 12-24-2024 Iron [Mass/Vol] 58 ug/dL Normal 50-170 [facility] Comment on above: Order Comment: 107.1 Performed By: #### L 503.6030, L503.0105, L506.0250, L500.4050, L100.0100, L101.9900 #### [facility] [address] [place], [place], [id number] (154) IRON SATURATION 35.4 Normal 15.0-55.0 [facility] Comment on above: Order Comment: 107.1 Performed By: #### L 503.6030, L503.0105, L506.0250, L500.4050, L100.0100, L101.9900 #### [facility] [address] [place], [address] TIBC 164 ug/dL Low 250-450 [facility] Comment on above: Order Comment: 107.1 Performed By: #### L 503.6030, L503.0105, L506.0250, L500.4050, L100.0100, L101.9900 #### [facility] [address] [place], [place], [id number] Laboratory - Chemistry and C hemistry - challengeOrdered By: Mario Mak on 12-24-2024 AST [Catalytic activity/Vol] 17 U/L 15-37 [facility] Lymphocytes Auto (Unsp spec) [#/Vol]Ordered By: Mario Mak on 12-24-2024 Lymphocytes (Bld) [#/Vol] 0.98 10*3/uL 0.83-4.51 [facility] Lymphocytes/100 WBC Auto (Un sp spec)Ordered By: Mario Mak on 12-24-2024 Lymphocytes/100 WBC (Bld) 17.8 % Low 19-41 [facility] MCV (mean corpuscular volume ) determinationOrdered By: Mario Mak on 12-24-2024 MCV (RBC) [Entitic vol] 89.6 fL 81-99 [facility] Mean corpuscular hemoglobin (MCH) determinationOrdered By: Mario Mak on 12-24-2024 MCH (RBC) [Entitic mass] 29.0 pg 27.0-32.0 [facility] Mean corpuscular hemoglobin concentration (MCHC) determinationOrdered By: Mario Mak on 12-24-2024 MCHC (RBC) [Mass/Vol] 32.4 g/dL 32-36 [facility] Mean platelet volume determi nationOrdered By: Mario Mak on 12-24-2024 Platelet mean volume (Bld) [Entitic vol] 9.3 fL 6.2-12.0 [facility] Monocyte percentageOrdered B y: Mario Mak on 12-24-2024 Monocytes/100 WBC (Bld) 7.3 % 0-10 [facility] Neutrophil percentageOrdered By: Mario Mak on 12-24-2024 Neutrophils/100 WBC (Bld) 68.4 % 47-70 [facility] Nucleated red blood cell per centageOrdered By: Mario Mak on 12-24-2024 Nucleated RBC/100 WBC (Bld) [Ratio] 0 % 0-5 [facility] Platelet countOrdered By: Moreno on 12-24-2024 Platelets (Bld) [#/Vol] 309 10*3/uL 150-450 [facility] Potassium measurementOrdered By: Mario Mak on 12-24-2024 Potassium [Moles/Vol] 4.0 mmol/L 3.5-5.1 [facility] RBC Auto (Bld) [#/Vol]Ordere d By: Mario Mak on 12-24-2024 RBC (Bld) [#/Vol] 3.07 10*6/uL Low 4.2-5.4 [facility] Serum anion gap measurementO rdered By: Mario Mak on 12-24-2024 Anion gap [Moles/Vol] 7 mmol/L 5-15 [facility] Serum globulin measurementOr dered By: Mario Mak on 12-24-2024 Globulin (S) [Mass/Vol] 3.4 g/dL 2.2-4.2 [facility] Serum or plasma alanine melara otransferase (ALT) measurementOrdered By: Mario Mak on 12-24-2024 ALT [Catalytic activity/Vol] U/L Low 13-56 [facility] Serum or plasma albumin roma urement (mass/volume)Ordered By: Mario Mak on 12-24-2024 Albumin [Mass/Vol] 2.0 g/dL Low 3.2-5.0 [facility] Serum or plasma alkaline krystal sphatase measurementOrdered By: Mario Mak on 12-24-2024 ALP [Catalytic activity/Vol] 108 U/L 45-117 [facility] Serum or plasma calcium roma urement (mass/volume)Ordered By: Mario Mak on 12-24-2024 Calcium [Mass/Vol] 8.8 mg/dL 8.5-10.1 [facility] Serum or plasma creatinine m easurement (mass/volume)Ordered By: Mario Mak on 12-24-2024 Creatinine [Mass/Vol] 0.83 mg/dL 0.55-1.02 [facility] Comment on above: The validity of the calculated GFR & GFRAA in patients over 70 years has not been determined. Clinical correlation is essential. Serum or plasma iron saturat ion measurement (mass fraction)Ordered By: Mario Mak on 12-24-2024 Iron saturation [Mass fraction] 35.4 % 15.0-55.0 [facility] Serum or plasma urea nitroge n measurement (mass/volume)Ordered By: Mario Mak on 12-24-2024 Urea nitrogen [Mass/Vol] 25 mg/dL High 7-18 [facility] Sodium levelOrdered By: Mario Mak on 12-24-2024 Sodium [Moles/Vol] 141 mmol/L 136-145 [facility] TIBCOrdered By: Mario Mak on 12-24-2024 Total Iron Binding Capacity 164 ug/dL Low 250-450 [facility] Total proteinOrdered By: Shwetha Mak on 12-24-2024 Protein [Mass/Vol] 5.4 g/dL Low 6.4-8.2 [facility] Vitamin B12on 12-24-2024 Cobalamin (Vitamin B12) [Mass/Vol] 407 pg/mL Normal 211-911 [facility] Comment on above: Order Comment: 107.1 Performed By: #### L 503.6030, L503.0105, L506.0250, L500.4050, L100.0100, L101.9900 #### [facility] [address] [place], [address] Vitamin B12 measurementOrder ed By: Mario Mak on 12-24-2024 Cobalamin (Vitamin B12) [Mass/Vol] 407 pg/mL 211-911 [facility] White blood cell (WBC) count Ordered By: Mario Mak on 12-24-2024 WBC (Bld) [#/Vol] 5.5 10*3/uL 4.4-11.0 [facility] Albumin to globulin ratioOrd ered By: Mario Mak on 12-17-2024 Albumin/Globulin [Mass ratio] 0.6 {ratio} Low 0.9-2.4 [facility] Bilirubin, totalOrdered By: Mario Mak on 12-17-2024 Bilirubin [Mass/Vol] 0.30 mg/dL 0.20-1.00 [facility] Comment on above: For patients on eltr ombopag therapy, use of Dimension [place] TBIL is not recommended. Blood urea nitrogen (BUN)/cr eatinine ratioOrdered By: Mario Mak on 12-17-2024 Urea nitrogen/Creatinine [Mass ratio] 38.9 mg/mg High 10-20 [facility] CBC-Complete Blood Cnt No Di ffon 12-17-2024 Erythrocyte distribution width (RBC) [Ratio] 17.8 % High 11.6-14.6 [facility] Comment on above: Order Comment: 107.1 Performed By: #### L 101.9900, L100.0500, L500.4050 #### [facility] [address] [place], [address] Hematocrit (Bld) [Volume fraction] 24.9 % Low 37-47 [facility] Comment on above: Order Comment: 107.1 Performed By: #### L 101.9900, L100.0500, L500.4050 #### [facility] [address] [place], [address] Hemoglobin (Bld) [Mass/Vol] 7.7 g/dL Low 12.0-15.0 [facility] Comment on above: Order Comment: 107.1 Performed By: #### L 101.9900, L100.0500, L500.4050 #### [facility] [address] [place], [address] MCH (RBC) [Entitic mass] 28.3 pg Normal 27.0-32.0 [facility] Comment on above: Order Comment: 107.1 Performed By: #### L 101.9900, L100.0500, L500.4050 #### [facility] [address] [place], [address] MCHC (RBC) [Mass/Vol] 30.9 g/dL Low 32-36 [facility] Comment on above: Order Comment: 107.1 Performed By: #### L 101.9900, L100.0500, L500.4050 #### [facility] [address] [place], [address] MCV (RBC) [Entitic vol] 91.5 fL Normal 81-99 [facility] Comment on above: Order Comment: 107.1 Performed By: #### L 101.9900, L100.0500, L500.4050 #### [facility] [address] [place], [address] Platelet mean volume (Bld) [Entitic vol] 8.7 fL Normal 6.2-12.0 [facility] Comment on above: Order Comment: 107.1 Performed By: #### L 101.9900, L100.0500, L500.4050 #### [facility] [address] [place], [address] Platelets (Bld) [#/Vol] 391 10*3/uL Normal 150-450 [facility] Comment on above: Order Comment: 107.1 Performed By: #### L 101.9900, L100.0500, L500.4050 #### [facility] [address] [place], [address] RBC (Bld) [#/Vol] 2.72 10*6/uL Low 4.2-5.4 [facility] Comment on above: Order Comment: 107.1 Performed By: #### L 101.9900, L100.0500, L500.4050 #### [facility] [address] [place], [address] RDW SD 59.4 fl High 35.1-43.9 [facility] Comment on above: Order Comment: 107.1 Performed By: #### L 101.9900, L100.0500, L500.4050 #### [facility] [address] [place], [address] WBC (Bld) [#/Vol] 7.6 10*3/uL Normal 4.4-11.0 [facility] Comment on above: Order Comment: 107.1 Performed By: #### L 101.9900, L100.0500, L500.4050 #### [facility] [address] [place], [address] Carbon dioxide measurementOr dered By: Mario Mak on 12-17-2024 CO2 [Moles/Vol] 25.0 mmol/L 21.0-32.0 [facility] Chloride measurementOrdered By: Mario Mak on 12-17-2024 Chloride [Moles/Vol] 104 mmol/L 98-107 [facility] Comprehensive Metabolic Prof ilon 12-17-2024 Albumin [Mass/Vol] 1.9 g/dL Low 3.2-5.0 [facility] Comment on above: Order Comment: 107.1 Performed By: #### L 101.9900, L100.0500, L500.4050 #### [facility] [address] [place], [address] Albumin/Globulin [Mass ratio] 0.6 {ratio} Low 0.9-2.4 [facility] Comment on above: Order Comment: 107.1 Performed By: #### L 101.9900, L100.0500, L500.4050 #### [facility] [address] [place], [address] ALK P 96 U/L Normal 45-117 [facility] Comment on above: Order Comment: 107.1 Performed By: #### L 101.9900, L100.0500, L500.4050 #### [facility] [address] [place], [address] ALT [Catalytic activity/Vol] 9 U/L Low 13-56 [facility] Comment on above: Order Comment: 107.1 Performed By: #### L 101.9900, L100.0500, L500.4050 #### [facility] [address] [place], [address] AST [Catalytic activity/Vol] 26 U/L Normal 15-37 [facility] Comment on above: Order Comment: 107.1 Performed By: #### L 101.9900, L100.0500, L500.4050 #### [facility] [address] [place], [address] Bilirubin [Mass/Vol] 0.30 mg/dL Normal 0.20-1.00 [facility] Comment on above: Order Comment: 107.1 Result Comment: For patients on eltrombopag therapy, use of Dimension [place] TBIL is not recommended. Performed By: #### L 101.9900, L100.0500, L500.4050 #### [facility] [address] [place], [address] BUN/CRE 38.9 RATIO High 10-20 [facility] Comment on above: Order Comment: 107.1 Performed By: #### L 101.9900, L100.0500, L500.4050 #### [facility] [address] [place], [address] CA,Total 8.4 mg/dL Low 8.5-10.1 [facility] Comment on above: Order Comment: 107.1 Performed By: #### L 101.9900, L100.0500, L500.4050 #### [facility] [address] [place], [address] Chloride [Moles/Vol] 104 mmol/L Normal 98-107 [facility] Comment on above: Order Comment: 107.1 Performed By: #### L 101.9900, L100.0500, L500.4050 #### [facility] [address] [place], [address] CO2 [Moles/Vol] 25.0 mmol/L Normal 21.0-32.0 [facility] Comment on above: Order Comment: 107.1 Performed By: #### L 101.9900, L100.0500, L500.4050 #### [facility] [address] [place], [address] Creatinine [Mass/Vol] 0.77 mg/dL Normal 0.55-1.02 [facility] Comment on above: Order Comment: 107.1 Result Comment: The validity of the calculated GFR GFRAA in patients over 70 years has not been determined. Clinical correlation is essential. Performed By: #### L 101.9900, L100.0500, L500.4050 #### [facility] [address] [place], [address] EST GFR - AA 91 mL/min Normal >60 [facility] Comment on above: Order Comment: 107.1 Result Comment: Afri can [place] GFR Calc Performed By: #### L 101.9900, L100.0500, L500.4050 #### [facility] [address] [place], [address] GAP 8 Normal 5-15 [facility] Comment on above: Order Comment: 107.1 Performed By: #### L 101.9900, L100.0500, L500.4050 #### [facility] [address] [place], [address] GFR/1.73 sq M.predicted among non-blacks MDRD (S/P/Bld) [Vol rate/Area] 75 mL/min/{1.73_m2} Normal >60 [facility] Comment on above: Order Comment: 107.1 Result Comment: Non- GFR Calc Performed By: #### L 101.9900, L100.0500, L500.4050 #### [facility] [address] [place], [address] Globulin (S) [Mass/Vol] 3.2 g/dL Normal 2.2-4.2 [facility] Comment on above: Order Comment: 107.1 Performed By: #### L 101.9900, L100.0500, L500.4050 #### [facility] [address] [place], [address] Glucose [Mass/Vol] 203 mg/dL High 74-106 [facility] Comment on above: Order Comment: 107.1 Result Comment: Gluc ose result greater than or equal to 200 mg/dL suggests DIABETES MELLITUS per A.D.A. criteria. Performed By: #### L 101.9900, L100.0500, L500.4050 #### [facility] [address] [place], [address] Potassium [Moles/Vol] 4.2 mmol/L Normal 3.5-5.1 [facility] Comment on above: Order Comment: 107.1 Performed By: #### L 101.9900, L100.0500, L500.4050 #### [facility] [address] [place], [address] Sodium [Moles/Vol] 137 mmol/L Normal 136-145 [facility] Comment on above: Order Comment: 107.1 Performed By: #### L 101.9900, L100.0500, L500.4050 #### [facility] [address] [place], [address] T PROT 5.1 g/dL Low 6.4-8.2 [facility] Comment on above: Order Comment: 107.1 Performed By: #### L 101.9900, L100.0500, L500.4050 #### [facility] [address] [place], [address] Urea nitrogen [Mass/Vol] 30 mg/dL High 7-18 [facility] Comment on above: Order Comment: 107.1 Performed By: #### L 101.9900, L100.0500, L500.4050 #### [facility] [address] [place], [address] Erythrocyte Sed Rateon 12-17 SED RATE 24 mm/hr Normal 0-30 [facility] Comment on above: Order Comment: 107.1 Performed By: #### L 101.9900, L100.0500, L500.4050 #### [facility] [place], [address] Erythrocyte distribution wid th (RBC) [Ratio]Ordered By: Mario Mak on 12-17-2024 Erythrocyte distribution width (RBC) [Entitic vol] 59.4 fL High 35.1-43.9 [facility] Erythrocyte distribution wid th ratioOrdered By: Mario Mak on 12-17-2024 Erythrocyte distribution width (RBC) [Ratio] 17.8 % High 11.6-14.6 [facility] Erythrocyte distribution wid th standard deviationOrdered By: Mario Mak on 12-17-2024 Erythrocyte distribution width (RBC) [Ratio] 59.4 fl High 35.1-43.9 [facility] Erythrocyte sedimentation ra teOrdered By: Mario Mak on 12-17-2024 ESR (Bld) [Velocity] 24 mm/h 0-30 [facility] Estimated glomerular filtrat ion rate (GFR) AmericanOrdered By: Mario Mak on 12-17-2024 Estimated GFR (MDRD) Amer 91 mL/min >60 [facility] Comment on above: GFR Calc Glomerular filtration rate ( GFR) estimationOrdered By: Mario Mak on 12-17-2024 Estimated GFR (MDRD) Non-Af Amer 75 mL/min >60 [facility] Comment on above: Non- GFR Calc GFR/1.73 sq M.predicted among non-blacks MDRD (S/P/Bld) [Vol rate/Area] 75 mL/min/{1.73_m2} >60 [facility] Comment on above: Non- GFR Calc Glucose measurementOrdered B y: Mario Mak on 12-17-2024 Glucose [Mass/Vol] 203 mg/dL High 74-106 [facility] Comment on above: Glucose result great er than or equal to 200 mg/dLsuggests DIABETES MELLITUS per A.D.A. criteria. Hematocrit Auto (Bld) [Volum e fraction]Ordered By: Mario Mak on 12-17-2024 Hematocrit (Bld) [Volume fraction] 24.9 % Low 37-47 [facility] Hemoglobin measurementOrdere d By: Mario Mak on 12-17-2024 Hemoglobin (Bld) [Mass/Vol] 7.7 g/dL Low 12.0-15.0 [facility] - Chemistry and C hemistry - challengeOrdered By: Mario Mak on 12-17-2024 AST [Catalytic activity/Vol] 26 U/L 15-37 [facility] MCV (mean corpuscular volume ) determinationOrdered By: Mario Mak on 12-17-2024 MCV (RBC) [Entitic vol] 91.5 fL 81-99 [facility] Mean corpuscular hemoglobin (MCH) determinationOrdered By: Mario Mak on 12-17-2024 MCH (RBC) [Entitic mass] 28.3 pg 27.0-32.0 [facility] Mean corpuscular hemoglobin concentration (MCHC) determinationOrdered By: Mario Mak on 12-17-2024 MCHC (RBC) [Mass/Vol] 30.9 g/dL Low 32-36 [facility] Mean platelet volume determi nationOrdered By: Mario Mak on 12-17-2024 Platelet mean volume (Bld) [Entitic vol] 8.7 fL 6.2-12.0 [facility] Platelet countOrdered By: Moreno on 12-17-2024 Platelets (Bld) [#/Vol] 391 10*3/uL 150-450 [facility] Potassium measurementOrdered By: Mario Mak on 12-17-2024 Potassium [Moles/Vol] 4.2 mmol/L 3.5-5.1 [facility] RBC Auto (Bld) [#/Vol]Ordere d By: Mario Mak on 12-17-2024 RBC (Bld) [#/Vol] 2.72 10*6/uL Low 4.2-5.4 [facility] Serum anion gap measurementO rdered By: Mario Mak on 12-17-2024 Anion gap [Moles/Vol] 8 mmol/L 5-15 [facility] Serum globulin measurementOr dered By: Mario Mak on 12-17-2024 Globulin (S) [Mass/Vol] 3.2 g/dL 2.2-4.2 [facility] Serum or plasma alanine melara otransferase (ALT) measurementOrdered By: Mario Mak on 12-17-2024 ALT [Catalytic activity/Vol] 9 U/L Low 13-56 [facility] Serum or plasma albumin roma urement (mass/volume)Ordered By: Mario Mak on 12-17-2024 Albumin [Mass/Vol] 1.9 g/dL Low 3.2-5.0 [facility] Serum or plasma alkaline krystal sphatase measurementOrdered By: Mario Mak on 12-17-2024 ALP [Catalytic activity/Vol] 96 U/L 45-117 [facility] Serum or plasma calcium roma urement (mass/volume)Ordered By: Mario Mak on 12-17-2024 Calcium [Mass/Vol] 8.4 mg/dL Low 8.5-10.1 [facility] Serum or plasma creatinine m easurement (mass/volume)Ordered By: Mario Mak on 12-17-2024 Creatinine [Mass/Vol] 0.77 mg/dL 0.55-1.02 [facility] Comment on above: The validity of the calculated GFR & GFRAA in patients over 70 years has not been determined. Clinical correlation is essential. Serum or plasma urea nitroge n measurement (mass/volume)Ordered By: Mario Mak on 12-17-2024 Urea nitrogen [Mass/Vol] 30 mg/dL High 7-18 [facility] Sodium levelOrdered By: Mario Mak on 12-17-2024 Sodium [Moles/Vol] 137 mmol/L 136-145 [facility] Total proteinOrdered By: Shwetha Mak on 12-17-2024 Protein [Mass/Vol] 5.1 g/dL Low 6.4-8.2 [facility] White blood cell (WBC) count Ordered By: Mario Mak on 12-17-2024 WBC (Bld) [#/Vol] 7.6 10*3/uL 4.4-11.0 [facility] ANES POSTPROC EVALon 025 ANES POSTPROC EVAL Normal [facility] ANES PRE-OPon 12-12-2024 ANES PRE-OP Normal [facility] BRIEF OP NOTon 12-12-2024 BRIEF OP NOT Normal [facility] Basic metabolic 2000 panelon 12-12-2024 Anion gap [Moles/Vol] 9 mmol/L Normal 8-15 [facility] Comment on above: Order Comment: Speci men Type: BLOOD SPECIMENOrdering Facility: [facility] Address: [address] [place] [address] Performed By: #### 2 4321-2 ####[facility] LABORATORYCLIA [id number] [place] [address] [place] Calcium [Mass/Vol] 8.9 mg/dL Normal 8.5-10.2 [facility] Comment on above: Order Comment: Speci men Type: BLOOD SPECIMENOrdering Facility: [facility] Address: [address] [place] [address] Performed By: #### 2 4321-2 ####[facility]ILLARRE[facility] LABORATORYCLIA [id number] [place] [address] [place] Chloride [Moles/Vol] 104 mmol/L Normal 98-[address] [facility] Comment on above: Order Comment: Speci men Type: BLOOD SPECIMENOrdering Facility: [facility] Address: [address] [place] [address] Performed By: #### 2 4321-2 ####VILLARRE[facility] LABORATORYCLIA [id number] [place] [id number] [place] CO2 [Moles/Vol] 24 mmol/L Normal 22-30 [facility] Comment on above: Order Comment: Speci men Type: BLOOD SPECIMENOrdering Facility: [facility] Address: [address] [place] [address] Performed By: #### 2 4321-2 ####VILLARRE[facility] LABORATORYCLIA [id number] [place] [id number] [place] Creatinine [Mass/Vol] 0.74 mg/dL Normal 0.58-0.96 [facility] Comment on above: Order Comment: Speci men Type: BLOOD SPECIMENOrdering Facility: [facility] Address: [address] [place] [address] Performed By: #### 2 4321-2 ####VILLARREAL LABORATORYCLIA [id number] [place] [id number] [facility] Creatinine and Glomerular filtration rate.predicted panel (S/P/Bld) 78 mL/min/1.73m??? Normal >=60 [facility] Comment on above: Order Comment: Fan meade Type: BLOOD SPECIMENOrdering Facility: [facility] Address: [address] [place] [address] Result Comment: Hilda mated Glomerular Filtration Rate [...] Performed By: #### 2 4321-2 ####VILLARREAL LABORATORYCLIA [id number] [place] [id number] [place] Glucose [Mass/Vol] 139 mg/dL High 74-99 [facility] Comment on above: Order Comment: Fan meade Type: BLOOD SPECIMENOrdering Facility: [facility] Address: [address] [place] [address] Result Comment: The [place] [employer] (ADA) provides guidance for cutoff [...] Standards of Medical Care in Diabetes 2016, [place] [employer]. Diabetes Care. 2016.39(Suppl 1). Performed By: #### 2 4321-2 ####VILLARREAL LABORATORYCLIA [id number] [place] [id number] [place] Potassium [Moles/Vol] 3.8 mmol/L Normal 3.7-5.1 [facility] Comment on above: Order Comment: Speci men Type: BLOOD SPECIMENOrdering Facility: [facility] Address: [address] [place] [address] Performed By: #### 2 4321-2 ####VILLARREAL LABORATORYCLIA [id number] [address] [place] Sodium [Moles/Vol] 137 mmol/L Normal 136-144 [facility] Comment on above: Order Comment: Speci men Type: BLOOD SPECIMENOrdering Facility: [facility] Address: [address] [place] [address] Performed By: #### 2 4321-2 ####VILLARREAL LABORATORYCLIA [id number] [address] [place] Urea nitrogen [Mass/Vol] 24 mg/dL High 7-21 [facility] Comment on above: Order Comment: Speci men Type: BLOOD SPECIMENOrdering Facility: [facility] Address: [address] [place] [address] Performed By: #### 2 4321-2 ####VILLARREAL LABORATORYCLIA [id number] [address] [place] CASE MANAGEMon 12-12-2024 CASE MANAGEM Normal [facility] CASE MANAGEM Normal [facility] CBC W Auto Differential pane l (Bld)on 12-12-2024 Basophils (Bld) [#/Vol] 0.03 10*3/uL Normal <0.11 [facility] Comment on above: Order Comment: Speci men Type: BLOOD SPECIMENOrdering Facility: [facility] Address: [address] [place] [address] Performed By: #### 5 7021-8 ####VILLARREAL LABORATORYCLIA [id number] [address] [place] Basophils/100 WBC (Bld) 0.3 % Normal [facility] Comment on above: Order Comment: Speci men Type: BLOOD SPECIMENOrdering Facility: [facility] Address: [address] [place] [address] Performed By: #### 5 7021-8 ####VILLARREAL LABORATORYCLIA [id number] [address] [place] Differential cell count method Nom (Bld) Auto Normal [facility] Comment on above: Order Comment: Speci men Type: BLOOD SPECIMENOrdering Facility: [facility] Address: [address] [place] [address] Performed By: #### 5 7021-8 ####VILLARREAL LABORATORYCLIA [id number] [place] [address] [place] Eosinophils (Bld) [#/Vol] 0.15 10*3/uL Normal <0.46 [facility] Comment on above: Order Comment: Speci men Type: BLOOD SPECIMENOrdering Facility: [facility] Address: [address] [place] [address] Performed By: #### 5 7021-8 ####VILLARREAL LABORATORYCLIA [id number] [address] [place] Eosinophils/100 WBC (Bld) 1.7 % Normal [facility] Comment on above: Order Comment: Speci men Type: BLOOD SPECIMENOrdering Facility: [facility] Address: [address] [place] [address] Performed By: #### 5 7021-8 ####VILLARRE[facility] LABORATORYCLIA [id number] [address] [place] Erythrocyte distribution width (RBC) [Ratio] 16.7 % High 11.5-15.0 [facility] Comment on above: Order Comment: Speci men Type: BLOOD SPECIMENOrdering Facility: [facility] Address: [address] [place] [address] Performed By: #### 5 7021-8 ####VILLARREAL LABORATORYCLIA [id number] [address] [place] Hematocrit (Bld) [Volume fraction] 24.4 % Low 36.0-46.0 [facility] Comment on above: Order Comment: Speci men Type: BLOOD SPECIMENOrdering Facility: [facility] Address: [address] [place] [address] Performed By: #### 5 7021-8 ####VILLARRE[facility] LABORATORYCLIA [id number] [place] [address] [place] Hemoglobin (Bld) [Mass/Vol] 7.8 g/dL Low 11.5-15.5 [facility] Comment on above: Order Comment: Speci men Type: BLOOD SPECIMENOrdering Facility: [facility] Address: [address] [place] [address] Performed By: #### 5 7021-8 ####VILLARRE[facility] LABORATORYCLIA [id number] [place] [address] [place] Immature granulocytes (Bld) [#/Vol] 0.10 10*3/uL High <0.10 [facility] Comment on above: Order Comment: Speci men Type: BLOOD SPECIMENOrdering Facility: [facility] Address: [address] [place] [address] Performed By: #### 5 7021-8 ####VILLARRE[facility] LABORATORYCLIA [id number] [address] [place] Immature granulocytes/100 WBC (Bld) 1.2 % Normal [facility] Comment on above: Order Comment: Speci men Type: BLOOD SPECIMENOrdering Facility: [facility] Address: [address] [place] [address] Performed By: #### 5 7021-8 ####VILLARRE[facility] LABORATORYCLIA [id number] [place] [address] [place] Lymphocytes (Bld) [#/Vol] 1.19 10*3/uL Normal 1.00-4.00 [facility] Comment on above: Order Comment: Speci men Type: BLOOD SPECIMENOrdering Facility: [facility] Address: [address] [place] [address] Performed By: #### 5 7021-8 ####VILLARREAL LABORATORYCLIA [id number] [address] [place] Lymphocytes/100 WBC (Bld) 13.7 % Normal [facility] Comment on above: Order Comment: Speci men Type: BLOOD SPECIMENOrdering Facility: [facility] Address: [address] [place] [address] Performed By: #### 5 7021-8 ####VILLARRE[facility] LABORATORYCLIA [id number] [address] MCH (RBC) [Entitic mass] 28.1 pg Normal 26.0-34.0 [facility] [facility] Comment on above: Order Comment: Speci men Type: BLOOD SPECIMENOrdering Facility: [facility] Address: [address] [place] [address] Performed By: #### 5 7021-8 ####VILLARREAL LABORATORYCLIA [id number] [address] [place] MCHC (RBC) [Mass/Vol] 32.0 g/dL Normal 30.5-36.0 [facility] Comment on above: Order Comment: Speci men Type: BLOOD SPECIMENOrdering Facility: [facility] Address: [address] [place] [address] Performed By: #### 5 7021-8 ####VILLARREAL LABORATORYCLIA [id number] [address] MCV (RBC) [Entitic vol] 87.8 fL Normal 80.0-100.[address] [facility] Comment on above: Order Comment: Speci men Type: BLOOD SPECIMENOrdering Facility: [facility] Address: [address] [place] [address] Performed By: #### 5 7021-8 ####VILLARREAL LABORATORYCLIA [id number] [address] Monocytes (Bld) [#/Vol] 0.66 10*3/uL Normal <0.87 [facility] Comment on above: Order Comment: Speci men Type: BLOOD SPECIMENOrdering Facility: [facility] Address: [address] [place] [address] Performed By: #### 5 7021-8 ####VILLARREAL LABORATORYCLIA [id number] [address] Monocytes/100 WBC (Bld) 7.6 % Normal [facility] Comment on above: Order Comment: Speci men Type: BLOOD SPECIMENOrdering Facility: [facility] Address: [address] [place] [address] Performed By: #### 5 7021-8 ####VILLARREAL LABORATORYCLIA [id number] [place] [address] [place] Neutrophils (Bld) [#/Vol] 6.54 10*3/uL Normal 1.45-7.50 [facility] Comment on above: Order Comment: Speci men Type: BLOOD SPECIMENOrdering Facility: [facility] Address: [address] [place] [address] Performed By: #### 5 7021-8 ####VILLARREAL LABORATORYCLIA [id number] [place] [address] [place] Neutrophils/100 WBC (Bld) 75.5 % Normal [facility] Comment on above: Order Comment: Speci men Type: BLOOD SPECIMENOrdering Facility: [facility] Address: [address] [place] [address] Performed By: #### 5 7021-8 ####VILLARREAL LABORATORYCLIA [id number] [place] [address] [place] Nucleated RBC (Bld) [#/Vol] 10*3/uL Normal <0.01 [facility] Comment on above: Order Comment: Speci men Type: BLOOD SPECIMENOrdering Facility: [facility] Address: [address] [place] [address] Performed By: #### 5 7021-8 ####VILLARREAL LABORATORYCLIA [id number] [address] [place] Nucleated RBC/100 WBC (Bld) [Ratio] 0.0 /100 WBC Normal [facility] Comment on above: Order Comment: Speci men Type: BLOOD SPECIMENOrdering Facility: [facility] Address: [address] [place] [address] Performed By: #### 5 7021-8 ####VILLARREAL LABORATORYCLIA [id number] [address] [place] Platelet mean volume (Bld) [Entitic vol] 8.0 fL Low 9.0-12.7 [facility] Comment on above: Order Comment: Speci men Type: BLOOD SPECIMENOrdering Facility: [facility] Address: [address] [place] [id number] Performed By: #### 5 7021-8 ####VILLARREAL LABORATORYCLIA [id number] [address] [place] Platelets (Bld) [#/Vol] 571 10*3/uL High 150-400 [facility] Comment on above: Order Comment: Speci men Type: BLOOD SPECIMENOrdering Facility: [facility] Address: [facility] [place] [id number] Performed By: #### 5 7021-8 ####VILLARREAL LABORATORYCLIA [id number] [place] [address] [place] RBC (Bld) [#/Vol] 2.78 10*6/uL Low 3.90-5.20 [facility] Comment on above: Order Comment: Speci men Type: BLOOD SPECIMENOrdering Facility: [facility] Address: [address] [place] [address] Performed By: #### 5 7021-8 ####VILLARREAL LABORATORYCLIA [id number] [address] [place] WBC (Bld) [#/Vol] 8.67 10*3/uL Normal 3.70-11.00 [facility] Comment on above: Order Comment: Speci men Type: BLOOD SPECIMENOrdering Facility: [facility] Address: [address] [place], [place] [address] Performed By: #### 5 7021-8 ####VILLARREAL LABORATORYCLIA [id number] [place] [id number] [facility] [place] CNDSon 12-12-2024 CNDS Normal [facility] CONSULT PROGon 12-12-2024 CONSULT PROG Normal [facility] CONSULT PROG Normal [facility] CONSULT PROG Normal [facility] OPERATIVE NOon 12-12-2024 OPERATIVE NO Normal [facility] Basic metabolic 2000 panelon 12-11-2024 Anion gap [Moles/Vol] 11 mmol/L Normal 8-15 [facility] Comment on above: Order Comment: Speci men Type: BLOOD SPECIMENOrdering Facility: [facility] Address: [address] [place] [address] Performed By: #### 2 4321-2 ####VILLARREAL LABORATORYCLIA [id number] [place] [address] [place] Calcium [Mass/Vol] 9.1 mg/dL Normal 8.5-10.2 [facility] Comment on above: Order Comment: Speci men Type: BLOOD SPECIMENOrdering Facility: [facility] Address: [address] [place] [address] Performed By: #### 2 4321-2 ####VILLARREAL LABORATORYCLIA [id number] [place] [address] [place] Chloride [Moles/Vol] 102 mmol/L Normal 98-[address] [facility] Comment on above: Order Comment: Speci men Type: BLOOD SPECIMENOrdering Facility: [facility] Address: [address] [place] [address] Performed By: #### 2 4321-2 ####VILLARREAL LABORATORYCLIA [id number] [place] [address] [place] CO2 [Moles/Vol] 25 mmol/L Normal 22-30 [facility] Comment on above: Order Comment: Speci men Type: BLOOD SPECIMENOrdering Facility: [facility] Address: [address] [place] [address] Performed By: #### 2 4321-2 ####VILLARREAL LABORATORYCLIA [id number] [address] [place] Creatinine [Mass/Vol] 0.80 mg/dL Normal 0.58-0.96 [facility] Comment on above: Order Comment: Speci men Type: BLOOD SPECIMENOrdering Facility: [facility] Address: [address] [place] [address] Performed By: #### 2 4321-2 ####VILLARREAL LABORATORYCLIA [id number] [address] Creatinine and Glomerular filtration rate.predicted panel (S/P/Bld) 71 mL/min/1.73m??? Normal >=60 [facility] Comment on above: Order Comment: Speci men Type: BLOOD SPECIMENOrdering Facility: [facility] Address: [address] [place] [address] Result Comment: Hilda mated Glomerular Filtration Rate [...] actual GFR. Performed By: #### 2 4321-2 ####MASON LABORATORYCLIA [id number] [place] [id number] [place] Glucose [Mass/Vol] 203 mg/dL High 74-99 [facility] Comment on above: Order Comment: Fan meade Type: BLOOD SPECIMENOrdering Facility: [facility] Address: [address] [place] [address] Result Comment: The [place] (ADA) provides guidance for cutoff [...] Standards of Medical Care in Diabetes 2016, [employer]. Diabetes Care. 2016.39(Suppl 1). Performed By: #### 2 4321-2 ####MASON LABORATORYCLIA [id number] [place] [id number] [place] Potassium [Moles/Vol] 3.8 mmol/L Normal 3.7-5.1 [facility] Comment on above: Order Comment: Fan meade Type: BLOOD SPECIMENOrdering Facility: [facility] Address: [address] [place] [id number] Performed By: #### 2 4321-2 ####VILLARREAL LABORATORYCLIA [id number] [place] [address] [place] Sodium [Moles/Vol] 138 mmol/L Normal 136-144 [facility] Comment on above: Order Comment: Speci men Type: BLOOD SPECIMENOrdering Facility: [facility] Address: [address] [place] [address] Performed By: #### 2 4321-2 ####VILLARREAL LABORATORYCLIA [id number] [place] [address] [place] Urea nitrogen [Mass/Vol] 33 mg/dL High 7-21 [facility] Comment on above: Order Comment: Speci men Type: BLOOD SPECIMENOrdering Facility: [facility] Address: [address] [place] [address] Performed By: #### 2 4321-2 ####VILLARREAL LABORATORYCLIA [id number] [address] [place] CASE MANAGEMon 12-11-2024 CASE MANAGEM [facility] CBC W Auto Differential pane l (Bld)on 12-11-2024 Basophils (Bld) [#/Vol] 10*3/uL Normal <0.[address] [facility] Comment on above: Order Comment: Speci men Type: BLOOD SPECIMENOrdering Facility: [facility] Address: [address] [place] [address] Performed By: #### 5 7021-8 ####VILLARREAL LABORATORYCLIA [id number] [address] [place] Basophils/100 WBC (Bld) 0.2 % Normal [facility] Comment on above: Order Comment: Speci men Type: BLOOD SPECIMENOrdering Facility: [facility] Address: [address] [place] [address] Performed By: #### 5 7021-8 ####VILLARREAL LABORATORYCLIA [id number] [place] [address] [place] Differential cell count method Nom (Bld) Auto [facility] Comment on above: Order Comment: Speci men Type: BLOOD SPECIMENOrdering Facility: [facility] Address: [address] [place] [address] Performed By: #### 5 7021-8 ####VILLARREAL LABORATORYCLIA [id number] [place] [address] [place] Eosinophils (Bld) [#/Vol] 0.11 10*3/uL Normal <0.46 [facility] Comment on above: Order Comment: Speci men Type: BLOOD SPECIMENOrdering Facility: [facility] Address: [address] [place] [address] Performed By: #### 5 7021-8 ####VILLARREAL LABORATORYCLIA [id number] [address] [place] Eosinophils/100 WBC (Bld) 1.1 % Normal [facility] Comment on above: Order Comment: Speci men Type: BLOOD SPECIMENOrdering Facility: [facility] Address: [address] [place] [address] Performed By: #### 5 7021-8 ####VILLARREAL LABORATORYCLIA [id number] [address] [place] Erythrocyte distribution width (RBC) [Ratio] 16.8 % High 11.5-15.0 [facility] Comment on above: Order Comment: Speci men Type: BLOOD SPECIMENOrdering Facility: [facility] Address: [address] [place] [address] Performed By: #### 5 7021-8 ####VILLARREAL LABORATORYCLIA [id number] [address] Hematocrit (Bld) [Volume fraction] 25.2 % Low 36.0-46.0 [facility] Comment on above: Order Comment: Speci men Type: BLOOD SPECIMENOrdering Facility: [facility] Address: [address] [place] [address] Performed By: #### 5 7021-8 ####VILLARREAL LABORATORYCLIA [id number] [address] [place] Hemoglobin (Bld) [Mass/Vol] 8.4 g/dL Low 11.5-15.5 [facility] Comment on above: Order Comment: Speci men Type: BLOOD SPECIMENOrdering Facility: [facility] Address: [address] [place] [address] Performed By: #### 5 7021-8 ####VILLARREAL LABORATORYCLIA [id number] [address] [place] Immature granulocytes (Bld) [#/Vol] 0.16 10*3/uL High <0.10 [facility] Comment on above: Order Comment: Speci men Type: BLOOD SPECIMENOrdering Facility: [facility] Address: [address] [place] [address] Performed By: #### 5 7021-8 ####VILLARREAL LABORATORYCLIA [id number] [address] [place] Immature granulocytes/100 WBC (Bld) 1.5 % Normal [facility] Comment on above: Order Comment: Speci men Type: BLOOD SPECIMENOrdering Facility: [facility] Address: [address] [place] [address] Performed By: #### 5 7021-8 ####VILLARREAL LABORATORYCLIA [id number] [address] [place] Lymphocytes (Bld) [#/Vol] 1.13 10*3/uL Normal 1.00-4.00 [facility] Comment on above: Order Comment: Speci men Type: BLOOD SPECIMENOrdering Facility: [facility] Address: [address] [place] [address] Performed By: #### 5 7021-8 ####VILLARREAL LABORATORYCLIA [id number] [address] Lymphocytes/100 WBC (Bld) 10.9 % Normal [facility] Comment on above: Order Comment: Speci men Type: BLOOD SPECIMENOrdering Facility: [facility] Address: [address] [place] [address] Performed By: #### 5 7021-8 ####VILLARREAL LABORATORYCLIA [id number] [place] [address] [place] MCH (RBC) [Entitic mass] 28.7 pg Normal 26.0-34.0 [facility] Comment on above: Order Comment: Speci men Type: BLOOD SPECIMENOrdering Facility: [facility] Address: [address] [place] [address] Performed By: #### 5 7021-8 ####VILLARREAL LABORATORYCLIA [id number] [place] [address] [place] MCHC (RBC) [Mass/Vol] 33.3 g/dL Normal 30.5-36.0 [facility] Comment on above: Order Comment: Speci men Type: BLOOD SPECIMENOrdering Facility: [facility] Address: [address] [place] [address] Performed By: #### 5 7021-8 ####VILLARREAL LABORATORYCLIA [id number] [place] [address] [place] MCV (RBC) [Entitic vol] 86.0 fL Normal 80.0-100.[address] [facility] Comment on above: Order Comment: Speci men Type: BLOOD SPECIMENOrdering Facility: [facility] Address: [address] [place] [address] Performed By: #### 5 7021-8 ####VILLARREAL LABORATORYCLIA [id number] [place] [address] [place] Monocytes (Bld) [#/Vol] 0.64 10*3/uL Normal <0.87 [facility] Comment on above: Order Comment: Speci men Type: BLOOD SPECIMENOrdering Facility: [facility] Address: [address] [place] [address] Performed By: #### 5 7021-8 ####VILLARREAL LABORATORYCLIA [id number] [address] Monocytes/100 WBC (Bld) 6.2 % Normal [facility] Comment on above: Order Comment: Speci men Type: BLOOD SPECIMENOrdering Facility: [facility] Address: [address] [place] [address] Performed By: #### 5 7021-8 ####VILLARREAL LABORATORYCLIA [id number] [place] [address] [place] Neutrophils (Bld) [#/Vol] 8.31 10*3/uL High 1.45-7.50 [facility] Comment on above: Order Comment: Speci men Type: BLOOD SPECIMENOrdering Facility: [facility] Address: [address] [place] [address] Performed By: #### 5 7021-8 ####VILLARREAL LABORATORYCLIA [id number] [place] [address] [place] Neutrophils/100 WBC (Bld) 80.1 % Normal [facility] Comment on above: Order Comment: Speci men Type: BLOOD SPECIMENOrdering Facility: [facility] Address: [address] [place] [address] Performed By: #### 5 7021-8 ####VILLARREAL LABORATORYCLIA [id number] [place] [address] [place] Nucleated RBC (Bld) [#/Vol] 10*3/uL Normal <0.01 [facility] Comment on above: Order Comment: Speci men Type: BLOOD SPECIMENOrdering Facility: [facility] Address: [address] [place] [address] Performed By: #### 5 7021-8 ####VILLARREAL LABORATORYCLIA [id number] [address] [place] Nucleated RBC/100 WBC (Bld) [Ratio] 0.0 /100 WBC Normal [facility] Comment on above: Order Comment: Speci men Type: BLOOD SPECIMENOrdering Facility: [facility] Address: [address] [place] [address] Performed By: #### 5 7021-8 ####VILLARREAL LABORATORYCLIA [id number] [place] [address] [place] Platelet mean volume (Bld) [Entitic vol] 7.9 fL Low 9.0-12.7 [facility] Comment on above: Order Comment: Speci men Type: BLOOD SPECIMENOrdering Facility: [facility] Address: [address] [place] [address] Performed By: #### 5 7021-8 ####VILLARREAL LABORATORYCLIA [id number] [place] [address] [place] Platelets (Bld) [#/Vol] 600 10*3/uL High 150-400 [facility] Comment on above: Order Comment: Speci men Type: BLOOD SPECIMENOrdering Facility: [facility] Address: [address] [place] [address] Performed By: #### 5 7021-8 ####VILLARREAL LABORATORYCLIA [id number] [place] [address] [place] RBC (Bld) [#/Vol] 2.93 10*6/uL Low 3.90-5.20 [facility] Comment on above: Order Comment: Speci men Type: BLOOD SPECIMENOrdering Facility: [facility] Address: [address] [place] [address] Performed By: #### 5 7021-8 ####VILLARREAL LABORATORYCLIA [id number] [place] [id number] [place] WBC (Bld) [#/Vol] 10.37 10*3/uL Normal 3.70-11.[address] [facility] Comment on above: Order Comment: Speci men Type: BLOOD SPECIMENOrdering Facility: [facility] Address: [address] [place] [address] Performed By: #### 5 7021-8 ####MASON LABORATORYCLIA [id number] [place] [id number] [place] CONSULT PROGon 12-11-2024 CONSULT PROG Normal [facility] CONSULT PROG Normal [facility] CONSULT PROG Normal [facility] CONSULT PROG Normal [facility] CONSULT PROG Normal [facility] NUTRITIONon 12-11-2024 NUTRITION Normal [facility] ANES POSTPROC EVALon 025 ANES POSTPROC EVAL [facility] ANES PRE-OPon 12-10-2024 ANES PRE-OP [facility] BRIEF OP NOTon 12-10-2024 BRIEF OP NOT [facility] Basic metabolic 2000 panelon 12-10-2024 Anion gap [Moles/Vol] 10 mmol/L Normal 8-15 [facility] Comment on above: Order Comment: Speci men Type: BLOOD SPECIMENOrdering Facility: [facility] Address: [address] [place], [place] [address] Performed By: #### 2 4321-2 ####VILLARREAL LABORATORYCLIA [id number] [place] [id number] [place] Calcium [Mass/Vol] 8.9 mg/dL Normal 8.5-10.2 [facility] Comment on above: Order Comment: Speci men Type: BLOOD SPECIMENOrdering Facility: [facility] Address: [address] [place] [address] Performed By: #### 2 4321-2 ####VILLARREAL LABORATORYCLIA [id number] [address] Chloride [Moles/Vol] 102 mmol/L Normal 98-[address] [facility] Comment on above: Order Comment: Speci men Type: BLOOD SPECIMENOrdering Facility: [facility] Address: [address] [place] [address] Performed By: #### 2 4321-2 ####VILLARREAL LABORATORYCLIA [id number] [address] [place] CO2 [Moles/Vol] 26 mmol/L Normal 22-30 [facility] Comment on above: Order Comment: Speci men Type: BLOOD SPECIMENOrdering Facility: [facility] Address: [address] [place] [address] Performed By: #### 2 4321-2 ####VILLARREAL LABORATORYCLIA [id number] [address] OF [facility] Creatinine [Mass/Vol] 0.68 mg/dL Normal 0.58-0.96 [facility] Comment on above: Order Comment: Speci men Type: BLOOD SPECIMENOrdering Facility: [facility] Address: [address] [place] [address] Performed By: #### 2 4321-2 ####VILLARREAL LABORATORYCLIA [id number] [address] Creatinine and Glomerular filtration rate.predicted panel (S/P/Bld) 84 mL/min/1.73m??? Normal >=60 [facility] Comment on above: Order Comment: Speci men Type: BLOOD SPECIMENOrdering Facility: [facility] Address: [address] [place] [address] Result Comment: Hilda mated Glomerular Filtration Rate [...] Performed By: #### 2 4321-2 ####VILLARREAL LABORATORYCLIA [id number] [place] [address] [place] Glucose [Mass/Vol] 79 mg/dL Normal 74-99 [facility] Comment on above: Order Comment: Fan meade Type: BLOOD SPECIMENOrdering Facility: [facility] Address: [address] [place] [address] Result Comment: The [place] [employer] (ADA) provides guidance for cutoff [...] Standards of Medical Care in Diabetes 2016, [place] [employer]. Diabetes Care. 2016.39(Suppl 1). Performed By: #### 2 4321-2 ####VILLARREAL LABORATORYCLIA [id number] [place] [address] [place] Potassium [Moles/Vol] 4.1 mmol/L Normal 3.7-5.1 [facility] Comment on above: Order Comment: Fan meade Type: BLOOD SPECIMENOrdering Facility: [facility] Address: [address] [place] [address] Performed By: #### 2 4321-2 ####VILLARREAL LABORATORYCLIA [id number] [place] [id number] [place] Sodium [Moles/Vol] 138 mmol/L Normal 136-144 [facility] Comment on above: Order Comment: Fan meade Type: BLOOD SPECIMENOrdering Facility: [facility] Address: [address] [place] [address] Performed By: #### 2 4321-2 ####VILLARREAL LABORATORYCLIA [id number] [address] [place] Urea nitrogen [Mass/Vol] 45 mg/dL High 7-21 [facility] Comment on above: Order Comment: Speci men Type: BLOOD SPECIMENOrdering Facility: [facility] Address: [address] [place] [address] Performed By: #### 2 4321-2 ####VILLARREAL LABORATORYCLIA [id number] [address] [place] CASE MANAGEMon 12-10-2024 CASE MANAGEM Normal [facility] CBC W Auto Differential pane l (Bld)on 12-10-2024 Basophils (Bld) [#/Vol] 10*3/uL Normal <0.[address] [facility] Comment on above: Order Comment: Speci men Type: BLOOD SPECIMENOrdering Facility: [facility] Address: [address] [place] [address] Performed By: #### 5 7021-8 ####VILLARREAL LABORATORYCLIA [id number] [place] [address] [place] Basophils/100 WBC (Bld) 0.2 % Normal [facility] Comment on above: Order Comment: Speci men Type: BLOOD SPECIMENOrdering Facility: [facility] Address: [address] [place] [address] Performed By: #### 5 7021-8 ####VILLARREAL LABORATORYCLIA [id number] [address] [place] Differential cell count method Nom (Bld) Auto Normal [facility] Comment on above: Order Comment: Speci men Type: BLOOD SPECIMENOrdering Facility: [facility] Address: [address] [place] [address] Performed By: #### 5 7021-8 ####VILLARREAL LABORATORYCLIA [id number] [place] [address] [place] Eosinophils (Bld) [#/Vol] 0.07 10*3/uL Normal <0.46 [facility] Comment on above: Order Comment: Speci men Type: BLOOD SPECIMENOrdering Facility: [facility] Address: [address] [place] [address] Performed By: #### 5 7021-8 ####VILLARREAL LABORATORYCLIA [id number] [place] [address] [place] Eosinophils/100 WBC (Bld) 0.6 % Normal [facility] Comment on above: Order Comment: Speci men Type: BLOOD SPECIMENOrdering Facility: [facility] Address: [address] [place] [address] Performed By: #### 5 7021-8 ####VILLARREAL LABORATORYCLIA [id number] [place] [address] [place] Erythrocyte distribution width (RBC) [Ratio] 16.6 % High 11.5-15.0 [facility] Comment on above: Order Comment: Speci men Type: BLOOD SPECIMENOrdering Facility: [facility] Address: [address] [place] [address] Performed By: #### 5 7021-8 ####VILLARREAL LABORATORYCLIA [id number] [address] [place] Hematocrit (Bld) [Volume fraction] 23.9 % Low 36.0-46.0 [facility] Comment on above: Order Comment: Speci men Type: BLOOD SPECIMENOrdering Facility: [facility] Address: [address] [place] [address] Performed By: #### 5 7021-8 ####VILLARRAEL LABORATORYCLIA [id number] [address] [place] Hemoglobin (Bld) [Mass/Vol] 7.8 g/dL Low 11.5-15.5 [facility] Comment on above: Order Comment: Speci men Type: BLOOD SPECIMENOrdering Facility: [facility] Address: [address] [place] [address] Performed By: #### 5 7021-8 ####VILLARREAL LABORATORYCLIA [id number] [address] [place] Immature granulocytes (Bld) [#/Vol] 0.16 10*3/uL High <0.10 [facility] Comment on above: Order Comment: Speci men Type: BLOOD SPECIMENOrdering Facility: [facility] Address: [address] [place] [address] Performed By: #### 5 7021-8 ####[facility] LABORATORYCLIA [id number] [address] Immature granulocytes/100 WBC (Bld) 1.4 % Normal [facility] Comment on above: Order Comment: Speci men Type: BLOOD SPECIMENOrdering Facility: [facility] Address: [address] [place] [address] Performed By: #### 5 7021-8 ####VILLARREAL LABORATORYCLIA [id number] [address] [place] Lymphocytes (Bld) [#/Vol] 1.18 10*3/uL Normal 1.00-4.00 [facility] Comment on above: Order Comment: Speci men Type: BLOOD SPECIMENOrdering Facility: [facility] Address: [address] [place] [address] Performed By: #### 5 7021-8 ####VILLARREAL LABORATORYCLIA [id number] [address] Lymphocytes/100 WBC (Bld) 10.3 % Normal [facility] Comment on above: Order Comment: Speci men Type: BLOOD SPECIMENOrdering Facility: [facility] Address: [address] [place] [address] Performed By: #### 5 7021-8 ####VILLARREAL LABORATORYCLIA [id number] [address] [place] MCH (RBC) [Entitic mass] 28.9 pg Normal 26.0-34.0 [facility] Comment on above: Order Comment: Speci men Type: BLOOD SPECIMENOrdering Facility: [facility] Address: [address] [place] [address] Performed By: #### 5 7021-8 ####VILLARREAL LABORATORYCLIA [id number] [address] MCHC (RBC) [Mass/Vol] 32.6 g/dL Normal 30.5-36.0 [facility] Comment on above: Order Comment: Speci men Type: BLOOD SPECIMENOrdering Facility: [facility] Address: [address] [place] [address] Performed By: #### 5 7021-8 ####VILLARREAL LABORATORYCLIA [id number] [place] [address] [place] MCV (RBC) [Entitic vol] 88.5 fL Normal 80.0-100.[address] [facility] Comment on above: Order Comment: Speci men Type: BLOOD SPECIMENOrdering Facility: [facility] Address: [address] [place] [address] Performed By: #### 5 7021-8 ####VILLARREAL LABORATORYCLIA [id number] [place] [address] [place] [facility] [place] Monocytes (Bld) [#/Vol] 0.70 10*3/uL Normal <0.87 [facility] Comment on above: Order Comment: Speci men Type: BLOOD SPECIMENOrdering Facility: [facility] Address: [address] [place] [address] Performed By: #### 5 7021-8 ####VILLARREAL LABORATORYCLIA [id number] [address] Monocytes/100 WBC (Bld) 6.1 % Normal [facility] Comment on above: Order Comment: Speci men Type: BLOOD SPECIMENOrdering Facility: [facility] Address: [address] [place] [address] Performed By: #### 5 7021-8 ####VILLARREAL LABORATORYCLIA [id number] [address] [place] Neutrophils (Bld) [#/Vol] 9.32 10*3/uL High 1.45-7.50 [facility] Comment on above: Order Comment: Speci men Type: BLOOD SPECIMENOrdering Facility: [facility] Address: [address] [place] [address] Performed By: #### 5 7021-8 ####VILLARREAL LABORATORYCLIA [id number] [address] Neutrophils/100 WBC (Bld) 81.4 % Normal [facility] Comment on above: Order Comment: Speci men Type: BLOOD SPECIMENOrdering Facility: [facility] Address: [address] [place] [address] Performed By: #### 5 7021-8 ####VILLARREAL LABORATORYCLIA [id number] [place] [address] [place] Nucleated RBC (Bld) [#/Vol] 10*3/uL Normal <0.01 [facility] Comment on above: Order Comment: Speci men Type: BLOOD SPECIMENOrdering Facility: [facility] Address: [address] [place] [address] Performed By: #### 5 7021-8 ####VILLARREAL LABORATORYCLIA [id number] [place] [address] [place] Nucleated RBC/100 WBC (Bld) [Ratio] 0.0 /100 WBC Normal [facility] Comment on above: Order Comment: Speci men Type: BLOOD SPECIMENOrdering Facility: [facility] Address: [address] [place] [address] Performed By: #### 5 7021-8 ####VILLARREAL LABORATORYCLIA [id number] [place] [address] [place] Platelet mean volume (Bld) [Entitic vol] 8.1 fL Low 9.0-12.7 [facility] Comment on above: Order Comment: Speci men Type: BLOOD SPECIMENOrdering Facility: [facility] Address: [address] [place] [address] Performed By: #### 5 7021-8 ####VILLARREAL LABORATORYCLIA [id number] [place] [address] [place] Platelets (Bld) [#/Vol] 579 10*3/uL High 150-400 [facility] Comment on above: Order Comment: Speci men Type: BLOOD SPECIMENOrdering Facility: [facility] Address: [address] [place] [address] Performed By: #### 5 7021-8 ####VILLARREAL LABORATORYCLIA [id number] [place] [address] [place] RBC (Bld) [#/Vol] 2.70 10*6/uL Low 3.90-5.20 [facility] Comment on above: Order Comment: Speci men Type: BLOOD SPECIMENOrdering Facility: [facility] Address: [address] [place] [address] Performed By: #### 5 7021-8 ####MAS[facility] LABORATORYCLIA [id number] [place] [address] [place] WBC (Bld) [#/Vol] 11.45 10*3/uL High 3.70-11.[address] [facility] Comment on above: Order Comment: Speci men Type: BLOOD SPECIMENOrdering Facility: [facility] Address: [address] [place] [address] Performed By: #### 5 7021-8 ####MASON LABORATORYCLIA [id number] [address] CONSULT PROGon 12-10-2024 CONSULT PROG [facility] CONSULT PROG [facility] CONSULT PROG [facility] CONSULT PROG [facility] OPERATIVE NOon 12-10-2024 OPERATIVE NO [facility] SURGICAL PATHOLOGYon 025 CASE REPORT [facility] Comment on above: Order Comment: Speci men Type: TISSUE SPECIMENOrdering Facility: [facility] Address: [address] [place] [address] Result Comment: Surg ical Pathology Report Case: [id number] Provider: José Miguel Morgan MD Collected: 12/10/2024 07:37 AMOrdering Location: [facility] Endoscopy Received: 12/10/2024 08:27 AMPathologist: Jesús Jeff MDSpecimens: A) - Small Bowel, Duodenum, Biopsy, sprue B) - Stomach, Biopsy, hp C) - Esophagus, Biopsy, at 30 cm r/o krystina Performed By: #### S ####[facility] LABCLIA [id number] [address] STATES OF [facility]APROM[facility] LABCLIA [id number] [address] FINAL DIAGNOSIS Normal [facility] Comment on above: Order Comment: Speci men Type: TISSUE SPECIMENOrdering Facility: [facility] Address: [address] [place] [address] Result Comment: A. D uodenum, biopsy:- Focal gastric surface metaplasia associated with mild regenerative epithelial changes.- No other significant pathologic alteration.B. Stomach, biopsy:- Reactive gastropathy.- No morphologic evidence of Helicobacter pylori.C. Esophagus at 30 cm, biopsy:- Fragments of of unremarkable squamous mucosa.- No evidence of Krystina.JRG/mm/12/11/2024 Performed By: #### S ####[facility] LABCLIA [id number] [address] LABCLIA [id number] [address] OF [facility] FINAL PERFORMING LAB [facility] Comment on above: Order Comment: Speci men Type: TISSUE SPECIMENOrdering Facility: [facility] Address: [address] [place] [address] Result Comment: Diag nostic interpretation performed at: [facility], [address] [place] [address] CLIA# [id number] Director: Manfred Diallo MD Performed By: #### S ####[facility] LABCLIA [id number] [address] LABCLIA [id number] [address] GROSS DESCRIPTION Normal [facility] Comment on above: Order Comment: Speci men Type: TISSUE SPECIMENOrdering Facility: [facility] Address: [address] [place] [address] Result Comment: A. S mall Bowel, Duodenum, [...] submitted in one cassette.Gross examination performed at [facility], [address] [place], [place] [address] December 10, 2024 10:50 AM Performed By: #### S ####[facility] LABCLIA [id number] [place] [address] [facility] LABCLIA [id number] [address] [address] [facility] THERAPY NTon 12-10-2024 THERAPY NT [facility] THERAPY NT Normal [facility] Basic metabolic 2000 panelon 12-09-2024 Anion gap [Moles/Vol] 10 mmol/L Normal 8-15 [facility] Comment on above: Order Comment: Speci men Type: BLOOD SPECIMENOrdering Facility: [facility] Address: [address] [place] [address] Performed By: #### 2 4321-2, 11687-3, 2276-02 ####MASON LABORATORYCLIA [id number] [place] [address] [place] Calcium [Mass/Vol] 9.3 mg/dL Normal 8.5-10.2 [facility] Comment on above: Order Comment: Speci men Type: BLOOD SPECIMENOrdering Facility: [facility] Address: [address] [place] [address] Performed By: #### 2 4321-2, 56026-1, 2275-4 ####[facility]AS[facility] LABORATORYCLIA [id number] [place] [address] [place] Chloride [Moles/Vol] 100 mmol/L Normal 98-[address] [facility] Comment on above: Order Comment: Speci men Type: BLOOD SPECIMENOrdering Facility: [facility] Address: [facility] [place] [address] Performed By: #### 2 4321-2, 68852-6, 2275-4 ####M[facility] LABORATORYCLIA [id number] [place] [address] [place] CO2 [Moles/Vol] 26 mmol/L Normal 22-30 [facility] Comment on above: Order Comment: Fan meade Type: BLOOD SPECIMENOrdering Facility: [facility] Address: [address] [place] [address] Performed By: #### 2 4321-2, 08610-4, 4 ####[facility] LABORATORYCLIA [id number] [place] [address] [place] Creatinine [Mass/Vol] 0.80 mg/dL Normal 0.58-0.96 [facility] Comment on above: Order Comment: Fan men Type: BLOOD SPECIMENOrdering Facility: [facility] Address: [address] [place] [address] Performed By: #### 2 4321-2, 31334-8, 2276-02 ####VILLARREAL LABORATORYCLIA [id number] [address] Creatinine and Glomerular filtration rate.predicted panel (S/P/Bld) 71 mL/min/1.73m??? Normal >=60 [facility] Comment on above: Order Comment: Fan meade Type: BLOOD SPECIMENOrdering Facility: [facility] Address: [address] [place] [address] Result Comment: Hilda mated Glomerular Filtration Rate [...] actual GFR. Performed By: #### 2 4321-2, 71714-5, 2276-02 ####VILLARREAL LABORATORYCLIA [id number] [place] [id number] [place] Glucose [Mass/Vol] 151 mg/dL High 74-99 [facility] Comment on above: Order Comment: Fan halina Type: BLOOD SPECIMENOrdering Facility: [facility] Address: [address] [place] [address] Result Comment: The [place] [employer] (ADA) provides guidance for cutoff [...] Standards of Medical Care in Diabetes 2016, [place] [employer]. Diabetes Care. 2016.39(Suppl 1). Performed By: #### 2 4321-2, 43617-8, 6-4 ####VILLARREAL LABORATORYCLIA [id number] [place] [address] [place] Potassium [Moles/Vol] 4.5 mmol/L Normal 3.7-5.1 [facility] Comment on above: Order Comment: Fan meade Type: BLOOD SPECIMENOrdering Facility: [facility] Address: [address] [place] [address] Performed By: #### 2 4321-2, 58999-6, 4 ####VILLARREAL LABORATORYCLIA [id number] [place] [address] [place] Sodium [Moles/Vol] 136 mmol/L Normal 136-144 [facility] Comment on above: Order Comment: Fan meade Type: BLOOD SPECIMENOrdering Facility: [facility] Address: [address] [place] [address] Performed By: #### 2 4321-2, 48884-8, 2275-4 ####VILLARREAL LABORATORYCLIA [id number] [place] [address] [place] Urea nitrogen [Mass/Vol] 43 mg/dL High 7-21 [facility] Comment on above: Order Comment: Fan meade Type: BLOOD SPECIMENOrdering Facility: [facility] Address: [address] [place] [address] Performed By: #### 2 4321-2, 13197-6, 2275-4 ####VILLARREAL LABORATORYCLIA [id number] [address] [place] CBC W Auto Differential pane l (Bld)on 12-09-2024 Basophils (Bld) [#/Vol] 10*3/uL Normal <0.[address] [facility] Comment on above: Order Comment: Speci men Type: BLOOD SPECIMENOrdering Facility: [facility] Address: [address] [place] [address] Performed By: #### 5 7021-8 ####VILLARREAL LABORATORYCLIA [id number] [address] Basophils/100 WBC (Bld) 0.1 % Normal [facility] Comment on above: Order Comment: Speci men Type: BLOOD SPECIMENOrdering Facility: [facility] Address: [address] [place] [address] Performed By: #### 5 7021-8 ####VILLARREAL LABORATORYCLIA [id number] [address] Differential cell count method Nom (Bld) Auto Normal [facility] Comment on above: Order Comment: Speci men Type: BLOOD SPECIMENOrdering Facility: [facility] Address: [address] [place] [address] Performed By: #### 5 7021-8 ####VILLARREAL LABORATORYCLIA [id number] [address] [place] Eosinophils (Bld) [#/Vol] 0.15 10*3/uL Normal <0.46 [facility] Comment on above: Order Comment: Speci men Type: BLOOD SPECIMENOrdering Facility: [facility] Address: [address] [place] [address] Performed By: #### 5 7021-8 ####VILLARREAL LABORATORYCLIA [id number] [address] Eosinophils/100 WBC (Bld) 1.4 % Normal [facility] Comment on above: Order Comment: Speci men Type: BLOOD SPECIMENOrdering Facility: [facility] Address: [address] [place] [address] Performed By: #### 5 7021-8 ####VILLARRE[facility] LABORATORYCLIA [id number] [place] [address] [place] Erythrocyte distribution width (RBC) [Ratio] 16.4 % High 11.5-15.0 [facility] Comment on above: Order Comment: Speci men Type: BLOOD SPECIMENOrdering Facility: [facility] Address: [address] [place] [address] Performed By: #### 5 7021-8 ####VILLARRE[facility] LABORATORYCLIA [id number] [place] [address] [place] Hematocrit (Bld) [Volume fraction] 24.0 % Low 36.0-46.0 [facility] Comment on above: Order Comment: Speci men Type: BLOOD SPECIMENOrdering Facility: [facility] Address: [address] [place] [address] Performed By: #### 5 7021-8 ####VILLARRE[facility] LABORATORYCLIA [id number] [place] [address] [place] Hemoglobin (Bld) [Mass/Vol] 7.6 g/dL Low 11.5-15.5 [facility] Comment on above: Order Comment: Speci men Type: BLOOD SPECIMENOrdering Facility: [facility] Address: [address] [place] [address] Performed By: #### 5 7021-8 ####VILLARRE[facility] LABORATORYCLIA [id number] [place] [address] [place] Immature granulocytes (Bld) [#/Vol] 0.23 10*3/uL High <0.10 [facility] Comment on above: Order Comment: Speci men Type: BLOOD SPECIMENOrdering Facility: [facility] Address: [address] [place] [address] Performed By: #### 5 7021-8 ####VILLARRE[facility] LABORATORYCLIA [id number] [place] [address] [place] Immature granulocytes/100 WBC (Bld) 2.1 % Normal [facility] Comment on above: Order Comment: Speci men Type: BLOOD SPECIMENOrdering Facility: [facility] Address: [address] [place] [address] Performed By: #### 5 7021-8 ####VILLARRE[facility] LABORATORYCLIA [id number] [address] Lymphocytes (Bld) [#/Vol] 1.43 10*3/uL Normal 1.00-4.00 [facility] Comment on above: Order Comment: Speci men Type: BLOOD SPECIMENOrdering Facility: [facility] Address: [address] [place] [address] Performed By: #### 5 7021-8 ####VILLARRE[facility] LABORATORYCLIA [id number] [address] Lymphocytes/100 WBC (Bld) 13.3 % Normal [facility] Comment on above: Order Comment: Speci men Type: BLOOD SPECIMENOrdering Facility: [facility] Address: [address] [place] [address] Performed By: #### 5 7021-8 ####VILLARRE[facility] LABORATORYCLIA [id number] [address] STATES [facility] MCH (RBC) [Entitic mass] 27.9 pg Normal 26.0-34.0 [facility] Comment on above: Order Comment: Speci men Type: BLOOD SPECIMENOrdering Facility: [facility] Address: [address] [place] [address] Performed By: #### 5 7021-8 ####VILLARRE[facility] LABORATORYCLIA [id number] [address] MCHC (RBC) [Mass/Vol] 31.7 g/dL Normal 30.5-36.0 [facility] Comment on above: Order Comment: Speci men Type: BLOOD SPECIMENOrdering Facility: [facility] Address: [address] [place] [address] Performed By: #### 5 7021-8 ####VILLARREAL LABORATORYCLIA [id number] [address] MCV (RBC) [Entitic vol] 88.2 fL Normal 80.0-100.[address] [facility] Comment on above: Order Comment: Speci men Type: BLOOD SPECIMENOrdering Facility: [facility] Address: [address] [place] [address] Performed By: #### 5 7021-8 ####VILLARRE[facility] LABORATORYCLIA [id number] [place] [address] [place] Monocytes (Bld) [#/Vol] 0.62 10*3/uL Normal <0.87 [facility] Comment on above: Order Comment: Speci men Type: BLOOD SPECIMENOrdering Facility: [facility] Address: [address] [place] [address] Performed By: #### 5 7021-8 ####VILLARREAL LABORATORYCLIA [id number] [place] [address] [place] Monocytes/100 WBC (Bld) 5.8 % Normal [facility] Comment on above: Order Comment: Speci men Type: BLOOD SPECIMENOrdering Facility: [facility] Address: [address] [place] [address] Performed By: #### 5 7021-8 ####VILLARREAL LABORATORYCLIA [id number] [place] [address] [place] Neutrophils (Bld) [#/Vol] 8.31 10*3/uL High 1.45-7.50 [facility] Comment on above: Order Comment: Speci men Type: BLOOD SPECIMENOrdering Facility: [facility] Address: [address] [place] [address] Performed By: #### 5 7021-8 ####VILLARREAL LABORATORYCLIA [id number] [address] [place] Neutrophils/100 WBC (Bld) 77.3 % Normal [facility] Comment on above: Order Comment: Speci men Type: BLOOD SPECIMENOrdering Facility: [facility] Address: [address] [place] [address] Performed By: #### 5 7021-8 ####VILLARREAL LABORATORYCLIA [id number] [place] [address] [place] Nucleated RBC (Bld) [#/Vol] 10*3/uL Normal <0.01 [facility] Comment on above: Order Comment: Speci men Type: BLOOD SPECIMENOrdering Facility: [facility] Address: [address] [place] [address] Performed By: #### 5 7021-8 ####VILLARRE[facility] LABORATORYCLIA [id number] [place] [address] [place] Nucleated RBC/100 WBC (Bld) [Ratio] 0.0 /100 WBC Normal [facility] Comment on above: Order Comment: Speci men Type: BLOOD SPECIMENOrdering Facility: [facility] Address: [address] [place] [address] Performed By: #### 5 7021-8 ####VILLARREAL LABORATORYCLIA [id number] [place] [address] [place] Platelet mean volume (Bld) [Entitic vol] 8.3 fL Low 9.0-12.7 [facility] Comment on above: Order Comment: Speci men Type: BLOOD SPECIMENOrdering Facility: [facility] Address: [address] [place] [address] Performed By: #### 5 7021-8 ####VILL[facility] LABORATORYCLIA [id number] [address] [place] Platelets (Bld) [#/Vol] 577 10*3/uL High 150-400 [facility] Comment on above: Order Comment: Speci men Type: BLOOD SPECIMENOrdering Facility: [facility] Address: [address] [place] [address] Performed By: #### 5 7021-8 ####VILL[facility] LABORATORYCLIA [id number] [place] [address] [place] RBC (Bld) [#/Vol] 2.72 10*6/uL Low 3.90-5.20 [facility] Comment on above: Order Comment: Speci men Type: BLOOD SPECIMENOrdering Facility: [facility] Address: [address] [place] [address] Performed By: #### 5 7021-8 ####VILLARREAL LABORATORYCLIA [id number] [address] [place] WBC (Bld) [#/Vol] 10.75 10*3/uL Normal 3.70-11.[address] [facility] Comment on above: Order Comment: Speci men Type: BLOOD SPECIMENOrdering Facility: [facility] Address: [address] [place] [address] Performed By: #### 5 7021-8 ####[facility] LABORATORYCLIA [id number] [place] [address] [place] CELIAC SCREENon 12-09-2024 GLIAD DEAMIDATED IGA QUAL Negative Normal Negative, Test not Indicated [facility] Comment on above: Order Comment: Speci men Type: BLOOD SPECIMENOrdering Facility: [facility] Address: [address] [place] [address] Result Comment: This is used as an aid in diagnosis of celiac disease. Clinical correlation is required.The following results were obtained with an [employer]ite Gliadin IgA JOE Gliadin. Gliadin IgA values obtained with different manufacturers' assay methods may not be used interchangeably. The magnitude of the reported IgA levels cannot be correlated to an endpoint titer. Performed By: #### L [id number] ####[facility] LABCLIA [id number] [place] [address] [place] Gliadin peptide IgA Qn (S) 2 Units Normal <20 [facility] Comment on above: Order Comment: Speci men Type: BLOOD SPECIMENOrdering Facility: [facility] Address: [address] [place] [address] Performed By: #### L [id number] ####[facility] LABCLIA [id number] [place] [address] [place] INTERPRETATION No serological evidence of celiac disease, however, if celiac disease is clinically suspected and patient is not on gluten-free diet, histological diagnosis may be considered. HLA testing may help with risk assessment. Normal [facility] Comment on above: Order Comment: Speci men Type: BLOOD SPECIMENOrdering Facility: [facility] Address: [address] [place] [address] Performed By: #### L [id number] ####[facility] LABCLIA [id number] [place] [address] [place] TRANSGLUTAMINASE IGA ABS INTERPRETATION Negative Normal Negative [facility] Comment on above: Order Comment: Speci men Type: BLOOD SPECIMENOrdering Facility: [facility] Address: [address] [place] [address] Result Comment: The following results were obtained with [employer] R h-tTG IgA JOE.???R h-tTG IgA values obtained with different manufacturers' assay methods may not be used interchangeably. The magnitude of the reported IgA levels cannot be corelated to an endpoint???concentration.This is used as an aid in diagnosis of celiac disease. Clinical correlation is required. Performed By: #### L [id number] ####[facility] LABCLIA [id number] [place] [address] [place] tTG IgA Qn (S) <2 Normal <4 [facility] Comment on above: Order Comment: [facility] Type: BLOOD SPECIMENOrdering Facility: [facility] Address: [address] [place] [address] Performed By: #### L [id number] ####[facility] LABCLIA [id number] [place] [address] [place] CONSULT PROGon 12-09-2024 CONSULT PROG Normal [facility] CONSULT PROG Normal [facility] CONSULT PROG Normal [facility] Ferritin SerPl-mCncon 2024 Ferritin [Mass/Vol] 1588.0 ng/mL High 14.7-205.1 [place] [facility] Comment on above: Order Comment: Speci [facility] Type: BLOOD SPECIMENOrdering Facility: [facility] Address: [address] [place] [address] Performed By: #### 2 4321-2, 53221-1, 2276-4 ####[facility]AS[facility] LABORATORYCLIA [id number] [place] [address] [place] Haptoglob SerPl-mCncon 12-09 Haptoglobin [Mass/Vol] 483 mg/dL High 31-238 [facility] Comment on above: Order Comment: [facility] Type: BLOOD SPECIMENOrdering Facility: [facility] Address: [address] [place] [address] Performed By: #### 4 542-7 ####[facility] LABCLIA [id number] [place] [id number] [place] IgA SerPl-mCncon 12-09-2024 IgA [Mass/Vol] 166 mg/dL Normal 70-400 [facility] Comment on above: Order Comment: Speci men Type: BLOOD SPECIMENOrdering Facility: [facility] Address: [address] [place] [address] Performed By: #### 2 458-8 ####[facility] LABCLIA [id number] [place] [id number] [place] Iron and Iron binding capaci ty panelon 12-09-2024 Iron [Mass/Vol] 91 ug/dL Normal 41-186 [facility] Comment on above: Order Comment: Speci men Type: BLOOD SPECIMENOrdering Facility: [facility] Address: [address] [place] [address] Performed By: #### 2 4321-2, 94789-4, 2276-02 ####VILLARREAL LABORATORYCLIA [id number] [address] Iron binding capacity [Mass/Vol] 223 ug/dL Low 232-386 [facility] Comment on above: Order Comment: Speci men Type: BLOOD SPECIMENOrdering Facility: [facility] Address: [address] [place] [address] Performed By: #### 2 4321-2, 59076-9, 2275-4 ####MASON LABORATORYCLIA [id number] [address] STATES OF [facility] Iron/TIBC [Molar ratio] 40.8 % Normal 15.0-57.[address] [facility] Comment on above: Order Comment: Speci men Type: BLOOD SPECIMENOrdering Facility: [facility] Address: [address] [place] [address] Performed By: #### 2 4321-2, 79510-7, 2275-4 ####VILLARREAL LABORATORYCLIA [id number] [place] [address] [place] CBC W Auto Differential pane l (Bld)on 12-08-2024 Basophils (Bld) [#/Vol] 0.03 10*3/uL Normal <0.11 [facility] Comment on above: Order Comment: Speci men Type: BLOOD SPECIMENOrdering Facility: [facility] Address: [address] [place] [address] Performed By: #### 5 7021-8 ####VILLARREAL LABORATORYCLIA [id number] [place] [address] [place] Basophils/100 WBC (Bld) 0.3 % Normal [facility] Comment on above: Order Comment: Speci men Type: BLOOD SPECIMENOrdering Facility: [facility] Address: [address] [place] [address] Performed By: #### 5 7021-8 ####VILLARREAL LABORATORYCLIA [id number] [address] [place] Differential cell count method Nom (Bld) Auto Normal [facility] Comment on above: Order Comment: Speci men Type: BLOOD SPECIMENOrdering Facility: [facility] Address: [address] [place] [address] Performed By: #### 5 7021-8 ####VILLARREAL LABORATORYCLIA [id number] [place] [address] [place] Eosinophils (Bld) [#/Vol] 0.13 10*3/uL Normal <0.46 [facility] Comment on above: Order Comment: Speci men Type: BLOOD SPECIMENOrdering Facility: [facility] Address: [address] [place] [address] Performed By: #### 5 7021-8 ####VILLARREAL LABORATORYCLIA [id number] [address] Eosinophils/100 WBC (Bld) 1.1 % Normal [facility] Comment on above: Order Comment: Speci men Type: BLOOD SPECIMENOrdering Facility: [facility] Address: [address] [place] [address] Performed By: #### 5 7021-8 ####VILLARREAL LABORATORYCLIA [id number] [place] [address] [place] Erythrocyte distribution width (RBC) [Ratio] 16.0 % High 11.5-15.0 [facility] Comment on above: Order Comment: Speci men Type: BLOOD SPECIMENOrdering Facility: [facility] Address: [address] [place] [address] Performed By: #### 5 7021-8 ####VILLARREAL LABORATORYCLIA [id number] [place] [address] [place] Hematocrit (Bld) [Volume fraction] 24.0 % Low 36.0-46.0 [facility] Comment on above: Order Comment: Speci men Type: BLOOD SPECIMENOrdering Facility: [facility] Address: [address] [place] [address] Performed By: #### 5 7021-8 ####VILLARREAL LABORATORYCLIA [id number] [place] [address] [place] Hemoglobin (Bld) [Mass/Vol] 7.7 g/dL Low 11.5-15.5 [facility] Comment on above: Order Comment: Speci men Type: BLOOD SPECIMENOrdering Facility: [facility] Address: [address] [place] [address] Performed By: #### 5 7021-8 ####VILLARREAL LABORATORYCLIA [id number] [place] [address] [place] Immature granulocytes (Bld) [#/Vol] 0.19 10*3/uL High <0.10 [facility] Comment on above: Order Comment: Speci men Type: BLOOD SPECIMENOrdering Facility: [facility] Address: [address] [place] [address] Performed By: #### 5 7021-8 ####VILLARREAL LABORATORYCLIA [id number] [address] [place] Immature granulocytes/100 WBC (Bld) 1.6 % Normal [facility] Comment on above: Order Comment: Speci men Type: BLOOD SPECIMENOrdering Facility: [facility] Address: [address] [place] [address] Performed By: #### 5 7021-8 ####VILLARREAL LABORATORYCLIA [id number] [place] [address] [place] Lymphocytes (Bld) [#/Vol] 1.38 10*3/uL Normal 1.00-4.00 [facility] Comment on above: Order Comment: Speci men Type: BLOOD SPECIMENOrdering Facility: [facility] Address: [address] [place] [address] Performed By: #### 5 7021-8 ####VILLARREAL LABORATORYCLIA [id number] [address] Lymphocytes/100 WBC (Bld) 11.9 % Normal [facility] Comment on above: Order Comment: Speci men Type: BLOOD SPECIMENOrdering Facility: [facility] Address: [address] [place] [address] Performed By: #### 5 7021-8 ####VILLARREAL LABORATORYCLIA [id number] [address] [place] MCH (RBC) [Entitic mass] 28.2 pg Normal 26.0-34.0 [facility] Comment on above: Order Comment: Speci men Type: BLOOD SPECIMENOrdering Facility: [facility] Address: [address] [place] [address] Performed By: #### 5 7021-8 ####VILLARREAL LABORATORYCLIA [id number] [address] [place] MCHC (RBC) [Mass/Vol] 32.1 g/dL Normal 30.5-36.0 [facility] Comment on above: Order Comment: Speci men Type: BLOOD SPECIMENOrdering Facility: [facility] Address: [address] [place] [address] Performed By: #### 5 7021-8 ####VILLARREAL LABORATORYCLIA [id number] [address] [place] MCV (RBC) [Entitic vol] 87.9 fL Normal 80.0-100.[address] [facility] Comment on above: Order Comment: Speci men Type: BLOOD SPECIMENOrdering Facility: [facility] Address: [address] [place] [address] Performed By: #### 5 7021-8 ####VILLARREAL LABORATORYCLIA [id number] [place] [address] [place] Monocytes (Bld) [#/Vol] 0.77 10*3/uL Normal <0.87 [facility] Comment on above: Order Comment: Speci men Type: BLOOD SPECIMENOrdering Facility: [facility] Address: [address] [place] [address] Performed By: #### 5 7021-8 ####VILLARREAL LABORATORYCLIA [id number] [place] [address] [place] Monocytes/100 WBC (Bld) 6.6 % Normal [facility] Comment on above: Order Comment: Speci men Type: BLOOD SPECIMENOrdering Facility: [facility] Address: [address] [place] [address] Performed By: #### 5 7021-8 ####VILLARREAL LABORATORYCLIA [id number] [place] [address] [place] Neutrophils (Bld) [#/Vol] 9.10 10*3/uL High 1.45-7.50 [facility] Comment on above: Order Comment: Speci men Type: BLOOD SPECIMENOrdering Facility: [facility] Address: [address] [place] [address] Performed By: #### 5 7021-8 ####VILLARREAL LABORATORYCLIA [id number] [address] [place] Neutrophils/100 WBC (Bld) 78.5 % Normal [facility] Comment on above: Order Comment: Speci men Type: BLOOD SPECIMENOrdering Facility: [facility] Address: [address] [place] [address] Performed By: #### 5 7021-8 ####VILLARREAL LABORATORYCLIA [id number] [place] [id number] [place] Nucleated RBC (Bld) [#/Vol] 10*3/uL Normal <0.01 [facility] Comment on above: Order Comment: Speci men Type: BLOOD SPECIMENOrdering Facility: [facility] Address: [address] [place] [address] Performed By: #### 5 7021-8 ####VILLARREAL LABORATORYCLIA [id number] [place] [address] [place] Nucleated RBC/100 WBC (Bld) [Ratio] 0.0 /100 WBC Normal [facility] Comment on above: Order Comment: Speci men Type: BLOOD SPECIMENOrdering Facility: [facility] Address: [address] [place] [address] Performed By: #### 5 7021-8 ####VILLARREAL LABORATORYCLIA [id number] [place] [address] [place] Platelet mean volume (Bld) [Entitic vol] 8.4 fL Low 9.0-12.7 [facility] Comment on above: Order Comment: Speci men Type: BLOOD SPECIMENOrdering Facility: [facility] Address: [address] [place] [address] Performed By: #### 5 7021-8 ####MASON LABORATORYCLIA [id number] [place] [address] [place] Platelets (Bld) [#/Vol] 577 10*3/uL High 150-400 [facility] Comment on above: Order Comment: Speci men Type: BLOOD SPECIMENOrdering Facility: [facility] Address: [address] [place] [address] Performed By: #### 5 7021-8 ####MASON LABORATORYCLIA [id number] [place] [address] [place] RBC (Bld) [#/Vol] 2.73 10*6/uL Low 3.90-5.20 [facility] Comment on above: Order Comment: Speci men Type: BLOOD SPECIMENOrdering Facility: [facility] Address: [address] [place] [address] Performed By: #### 5 7021-8 ####VILLARREAL LABORATORYCLIA [id number] [place] [id number] [place] WBC (Bld) [#/Vol] 11.60 10*3/uL High 3.70-11.[address] [facility] Comment on above: Order Comment: Speci men Type: BLOOD SPECIMENOrdering Facility: [facility] Address: [address] [place] [address] Performed By: #### 5 7021-8 ####VILLARREAL LABORATORYCLIA [id number] [place] [address] [place] CONSULT PROGon 12-08-2024 CONSULT PROG Normal [facility] CONSULT PROG Normal [facility] CONSULT PROG Normal [facility] Comprehensive metabolic 2000 panelon 12-08-2024 Albumin [Mass/Vol] 2.6 g/dL Low 3.9-4.9 [facility] Comment on above: Order Comment: Speci men Type: BLOOD SPECIMENOrdering Facility: [facility] Address: [address] [place] [id number] Performed By: #### 2 4323-8, ####VILLARREAL LABORATORYCLIA [id number] [place] [address] [place] ALP [Catalytic activity/Vol] 106 U/L Normal 34-123 [facility] Comment on above: Order Comment: Speci men Type: BLOOD SPECIMENOrdering Facility: [facility] Address: [address] [place] [address] Performed By: #### 2 4323-8, ####VILLARREAL LABORATORYCLIA [id number] [place] [address] [place] ALT [Catalytic activity/Vol] U/L Low 7-38 [facility] Comment on above: Order Comment: Speci men Type: BLOOD SPECIMENOrdering Facility: [facility] Address: [address] [place] [address] Performed By: #### 2 4323-8, ####VILLARREAL LABORATORYCLIA [id number] [place] [id number] [place] Anion gap [Moles/Vol] 8 mmol/L Normal 8-15 [facility] Comment on above: Order Comment: Speci men Type: BLOOD SPECIMENOrdering Facility: [facility] Address: [address] [place] [id number] Performed By: #### 2 4323-8, ####VILLARREAL LABORATORYCLIA [id number] [place] [id number] [place] AST [Catalytic activity/Vol] 20 U/L Normal 13-35 [facility] Comment on above: Order Comment: Speci men Type: BLOOD SPECIMENOrdering Facility: [facility] Address: [address] [place] [address] Performed By: #### 2 432-8, ####VILLARREAL LABORATORYCLIA [id number] [place] [address] [place] Bilirubin [Mass/Vol] mg/dL Low 0.2-1.[address] [facility] Comment on above: Order Comment: Speci men Type: BLOOD SPECIMENOrdering Facility: [facility] Address: [address] [place] [address] Performed By: #### 2 8, ####VILLARREAL LABORATORYCLIA [id number] [place] [address] [place] Calcium [Mass/Vol] 9.0 mg/dL Normal 8.5-10.2 [facility] Comment on above: Order Comment: Speci men Type: BLOOD SPECIMENOrdering Facility: [facility] Address: [address] [place] [address] Performed By: #### 2 4323-06, ####VILLARREAL LABORATORYCLIA [id number] [place] [address] [place] Chloride [Moles/Vol] 99 mmol/L Normal 98-[address] [facility] Comment on above: Order Comment: Speci men Type: BLOOD SPECIMENOrdering Facility: [facility] Address: [address] [place] [address] Performed By: #### 2 4323-06, ####VILLARREAL LABORATORYCLIA [id number] [place] [id number] [place] CO2 [Moles/Vol] 27 mmol/L Normal 22-30 [facility] Comment on above: Order Comment: Speci men Type: BLOOD SPECIMENOrdering Facility: [facility] Address: [address] [place] [address] Performed By: #### 2 432-8, ####VILLARREAL LABORATORYCLIA [id number] [place] [address] [place] Creatinine [Mass/Vol] 0.86 mg/dL Normal 0.58-0.96 [facility] Comment on above: Order Comment: Fan meade Type: BLOOD SPECIMENOrdering Facility: [facility] Address: [address] [place] [address] Performed By: #### 2 4323-8, ####VILLARREAL LABORATORYCLIA [id number] [place] [address] [place] [facility] Creatinine and Glomerular filtration rate.predicted panel (S/P/Bld) 65 mL/min/1.73m??? Normal >=60 [facility] Comment on above: Order Comment: Fan meade Type: BLOOD SPECIMENOrdering Facility: [facility] Address: [address] [place] [address] Result Comment: Hilda mated Glomerular Filtration Rate [...] Performed By: #### 2 4323-8, ####VILLARREAL LABORATORYCLIA [id number] [place] [id number] [place] Glucose [Mass/Vol] 170 mg/dL High 74-99 [facility] Comment on above: Order Comment: Fan meade Type: BLOOD SPECIMENOrdering Facility: [facility] Address: [address] [place], [place] [id number] Result Comment: The [place] [employer] (ADA) provides guidance for cutoff [...] Standards of Medical Care in Diabetes 2016, [place] [employer]. Diabetes Care. 2016.39(Suppl 1). Performed By: #### 2 4323-8, ####VILLARREAL LABORATORYCLIA [id number] [place] [address] [place] Potassium [Moles/Vol] 4.5 mmol/L Normal 3.7-5.1 [facility] Comment on above: Order Comment: Speci men Type: BLOOD SPECIMENOrdering Facility: [facility] Address: [address] [place] [address] Performed By: #### 2 4328, ####VILLARREAL LABORATORYCLIA [id number] [place] [address] [place] Protein [Mass/Vol] 5.3 g/dL Low 6.3-8.0 [facility] Comment on above: Order Comment: Speci men Type: BLOOD SPECIMENOrdering Facility: [facility] Address: [address] [place] [address] Performed By: #### 2 4323-06, ####VILLARREAL LABORATORYCLIA [id number] [place] [address] [place] Sodium [Moles/Vol] 134 mmol/L Low 136-144 [facility] Comment on above: Order Comment: Katei men Type: BLOOD SPECIMENOrdering Facility: [facility] Address: [address] [place] [address] Performed By: #### 2 4323-06, ####VILLARREAL LABORATORYCLIA [id number] [place] [id number] [place] Urea nitrogen [Mass/Vol] 45 mg/dL High 7-21 [facility] Comment on above: Order Comment: Speci men Type: BLOOD SPECIMENOrdering Facility: [facility] Address: [facility] [place] [address] Performed By: #### 2 43201-19, ####VILLARREAL LABORATORYCLIA [id number] [place] [address] [place] Magnesium SerPl-mCncon 12-08 Magnesium [Mass/Vol] 1.7 mg/dL Normal 1.7-2.[address] [facility] Comment on above: Order Comment: Speci men Type: BLOOD SPECIMENOrdering Facility: [facility] Address: [address] [place] [address] Performed By: #### 2 4323-8, 33345-8 ####VILLARREAL LABORATORYCLIA [id number] [address] OCCULT BLD EXAM-DIAGon 12-08 OCCULT BLD EXAM-DIAG Negative Normal [facility] Comment on above: Performed By: #### O BDX ####MASON LABORATORYCLIA [id number] [address] [place] ALLIED HEALTHon 12-07-[address] [facility] HEALTH [facility] CASE MANAGEMon 12-07-2024 CASE MANAGEM [facility] CBC W Auto Differential pane l (Bld)on 12-07-2024 Basophils (Bld) [#/Vol] 10*3/uL Normal <0.[address] [facility] Comment on above: Order Comment: Speci men Type: BLOOD SPECIMENOrdering Facility: [facility] Address: [address] [place] [address] Performed By: #### 5 7021-8 ####VILLARREAL LABORATORYCLIA [id number] [address] Basophils/100 WBC (Bld) 0.2 % Normal [facility] Comment on above: Order Comment: Speci men Type: BLOOD SPECIMENOrdering Facility: [facility] Address: [address] [place] [address] Performed By: #### 5 7021-8 ####VILLARREAL LABORATORYCLIA [id number] [address] STATES OF [facility] Differential cell count method Nom (Bld) Auto [facility] Comment on above: Order Comment: Speci men Type: BLOOD SPECIMENOrdering Facility: [facility] Address: [address] [place] [address] Performed By: #### 5 7021-8 ####VILLARREAL LABORATORYCLIA [id number] [address] [place] Eosinophils (Bld) [#/Vol] 0.09 10*3/uL Normal <0.46 [facility] Comment on above: Order Comment: Speci men Type: BLOOD SPECIMENOrdering Facility: [facility] Address: [address] [place] [address] Performed By: #### 5 7021-8 ####VILLARREAL LABORATORYCLIA [id number] [address] [place] Eosinophils/100 WBC (Bld) 0.8 % Normal [facility] Comment on above: Order Comment: Speci men Type: BLOOD SPECIMENOrdering Facility: [facility] Address: [address] [place] [address] Performed By: #### 5 7021-8 ####VILLARREAL LABORATORYCLIA [id number] [address] [place] Erythrocyte distribution width (RBC) [Ratio] 16.0 % High 11.5-15.0 [facility] Comment on above: Order Comment: Speci men Type: BLOOD SPECIMENOrdering Facility: [facility] Address: [address] [place] [address] Performed By: #### 5 7021-8 ####VILLARREAL LABORATORYCLIA [id number] [address] Hematocrit (Bld) [Volume fraction] 25.2 % Low 36.0-46.0 [facility] Comment on above: Order Comment: Speci men Type: BLOOD SPECIMENOrdering Facility: [facility] Address: [address] [place] [address] Performed By: #### 5 7021-8 ####VILLARREAL LABORATORYCLIA [id number] [address] [place] Hemoglobin (Bld) [Mass/Vol] 8.2 g/dL Low 11.5-15.5 [facility] Comment on above: Order Comment: Speci men Type: BLOOD SPECIMENOrdering Facility: [facility] Address: [address] [place] [address] Performed By: #### 5 7021-8 ####VILLARREAL LABORATORYCLIA [id number] [address] [place] Immature granulocytes (Bld) [#/Vol] 0.18 10*3/uL High <0.10 [facility] Comment on above: Order Comment: Speci men Type: BLOOD SPECIMENOrdering Facility: [facility] Address: [address] [place] [address] Performed By: #### 5 7021-8 ####VILLARREAL LABORATORYCLIA [id number] [address] [place] Immature granulocytes/100 WBC (Bld) 1.6 % Normal [facility] Comment on above: Order Comment: Speci men Type: BLOOD SPECIMENOrdering Facility: [facility] Address: [address] [place] [address] Performed By: #### 5 7021-8 ####VILLARREAL LABORATORYCLIA [id number] [address] [place] Lymphocytes (Bld) [#/Vol] 0.83 10*3/uL Low 1.00-4.00 [facility] Comment on above: Order Comment: Speci men Type: BLOOD SPECIMENOrdering Facility: [facility] Address: [address] [place] [address] Performed By: #### 5 7021-8 ####VILLARREAL LABORATORYCLIA [id number] [address] Lymphocytes/100 WBC (Bld) 7.6 % Normal [facility] Comment on above: Order Comment: Speci men Type: BLOOD SPECIMENOrdering Facility: [facility] Address: [address] [place] [address] Performed By: #### 5 7021-8 ####VILLARREAL LABORATORYCLIA [id number] [place] [address] [place] MCH (RBC) [Entitic mass] 28.5 pg Normal 26.0-34.0 [facility] Comment on above: Order Comment: Speci men Type: BLOOD SPECIMENOrdering Facility: [facility] Address: [address] [place] [address] Performed By: #### 5 7021-8 ####VILLARREAL LABORATORYCLIA [id number] [address] MCHC (RBC) [Mass/Vol] 32.5 g/dL Normal 30.5-36.0 [facility] Comment on above: Order Comment: Speci men Type: BLOOD SPECIMENOrdering Facility: [facility] Address: [address] [place] [address] Performed By: #### 5 7021-8 ####VILLARREAL LABORATORYCLIA [id number] [address] MCV (RBC) [Entitic vol] 87.5 fL Normal 80.0-100.[address] [facility] Comment on above: Order Comment: Speci men Type: BLOOD SPECIMENOrdering Facility: [facility] Address: [address] [place] [address] Performed By: #### 5 7021-8 ####VILLARREAL LABORATORYCLIA [id number] [address] [place] Monocytes (Bld) [#/Vol] 0.81 10*3/uL Normal <0.87 [facility] Comment on above: Order Comment: Speci men Type: BLOOD SPECIMENOrdering Facility: [facility] Address: [address] [place] [address] Performed By: #### 5 7021-8 ####VILLARREAL LABORATORYCLIA [id number] [address] Monocytes/100 WBC (Bld) 7.4 % Normal [facility] Comment on above: Order Comment: Speci men Type: BLOOD SPECIMENOrdering Facility: [facility] Address: [address] [place] [address] Performed By: #### 5 7021-8 ####VILLARREAL LABORATORYCLIA [id number] [place] [address] [place] Neutrophils (Bld) [#/Vol] 8.99 10*3/uL High 1.45-7.50 [facility] Comment on above: Order Comment: Speci men Type: BLOOD SPECIMENOrdering Facility: [facility] Address: [address] [place] [address] Performed By: #### 5 7021-8 ####VILLARREAL LABORATORYCLIA [id number] [address] Neutrophils/100 WBC (Bld) 82.4 % Normal [facility] Comment on above: Order Comment: Speci men Type: BLOOD SPECIMENOrdering Facility: [facility] Address: [address] [place] [address] Performed By: #### 5 7021-8 ####VILLARREAL LABORATORYCLIA [id number] [place] [address] [place] Nucleated RBC (Bld) [#/Vol] 10*3/uL Normal <0.01 [facility] Comment on above: Order Comment: Speci men Type: BLOOD SPECIMENOrdering Facility: [facility] Address: [address] [place] [address] Performed By: #### 5 7021-8 ####VILLARREAL LABORATORYCLIA [id number] [address] [place] Nucleated RBC/100 WBC (Bld) [Ratio] 0.0 /100 WBC Normal [facility] Comment on above: Order Comment: Speci men Type: BLOOD SPECIMENOrdering Facility: [facility] Address: [address] [place] [address] Performed By: #### 5 7021-8 ####VILLARREAL LABORATORYCLIA [id number] [address] [place] Platelet mean volume (Bld) [Entitic vol] 8.3 fL Low 9.0-12.7 [facility] Comment on above: Order Comment: Speci men Type: BLOOD SPECIMENOrdering Facility: [facility] Address: [address] [place] [address] Performed By: #### 5 7021-8 ####VILLARREAL LABORATORYCLIA [id number] [address] [place] Platelets (Bld) [#/Vol] 564 10*3/uL High 150-400 [facility] Comment on above: Order Comment: Speci men Type: BLOOD SPECIMENOrdering Facility: [facility] Address: [address] [place] [address] Performed By: #### 5 7021-8 ####VILLARREAL LABORATORYCLIA [id number] [place] [id number] [place] RBC (Bld) [#/Vol] 2.88 10*6/uL Low 3.90-5.20 [facility] Comment on above: Order Comment: Speci men Type: BLOOD SPECIMENOrdering Facility: [facility] Address: [address] [place] [address] Performed By: #### 5 7021-8 ####VILLARREAL LABORATORYCLIA [id number] [address] OF [facility] WBC (Bld) [#/Vol] 10.92 10*3/uL Normal 3.70-11.[address] [facility] Comment on above: Order Comment: Speci men Type: BLOOD SPECIMENOrdering Facility: [facility] Address: [address] [place] [address] Performed By: #### 5 7021-8 ####VILLARREAL LABORATORYCLIA [id number] [address] [place] CONSULTon 12-07-2024 CONSULT Normal [facility] CONSULT PROGon 12-07-2024 CONSULT PROG Normal [facility] CONSULT PROG Normal [facility] CONSULT PROG Normal [facility] CONSULT [facility] Normal [facility] CRP SerPl-mCncon 12-07-2024 CRP [Mass/Vol] 3.6 mg/dL High <0.9 [facility] Comment on above: Order Comment: Speci men Type: BLOOD SPECIMENOrdering Facility: [facility] Address: [address] [place] [address] Performed By: #### 1 988-5, 67751-0, 59754-7, 3040-3 ####VILLARREAL LABORATORYCLIA [id number] [address] Comprehensive metabolic 2000 panelon 12-07-2024 Albumin [Mass/Vol] 2.6 g/dL Low 3.9-4.9 [facility] Comment on above: Order Comment: Speci men Type: BLOOD SPECIMENOrdering Facility: [facility] Address: [address] [place] [address] Performed By: #### 1 988-5, 33281-4, 86594-0, 3040-3 ####VILLARREAL LABORATORYCLIA [id number] [place] [address] [place] ALP [Catalytic activity/Vol] 111 U/L Normal 34-123 [facility] Comment on above: Order Comment: Speci men Type: BLOOD SPECIMENOrdering Facility: [facility] Address: [address] [place] [address] Performed By: #### 1 988-5, 36253-9, 83798-5, 3040-3 ####VILLARREAL LABORATORYCLIA [id number] [place] [address] [place] ALT [Catalytic activity/Vol] U/L Low 7-38 [facility] Comment on above: Order Comment: Speci men Type: BLOOD SPECIMENOrdering Facility: [facility] Address: [address] [place] [address] Performed By: #### 1 988-5, 79621-6, 38135-4, 3040-3 ####VILLARREAL LABORATORYCLIA [id number] [place] [address] [place] Anion gap [Moles/Vol] 9 mmol/L Normal 8-15 [facility] Comment on above: Order Comment: Speci men Type: BLOOD SPECIMENOrdering Facility: [facility] Address: [address] [place] [address] Performed By: #### 1 988-5, 64876-8, 72099-3, 3040-3 ####VILLARREAL LABORATORYCLIA [id number] [place] [address] [place] AST [Catalytic activity/Vol] 29 U/L Normal 13-35 [facility] Comment on above: Order Comment: Speci men Type: BLOOD SPECIMENOrdering Facility: [facility] Address: [address] [place] [address] [place] [address] Performed By: #### 1 988-5, 35713-0, 95891-4, 3040-3 ####VILLARREAL LABORATORYCLIA [id number] [place] [address] [place] Bilirubin [Mass/Vol] mg/dL Low 0.2-1.[address] [facility] Comment on above: Order Comment: Speci men Type: BLOOD SPECIMENOrdering Facility: [facility] Address: [facility] [place] [address] Performed By: #### 1 988-5, 39642-5, 66984-1, 0-3 ####MASON LABORATORYCLIA [id number] [place] [address] [place] Calcium [Mass/Vol] 9.3 mg/dL Normal 8.5-10.2 [facility] Comment on above: Order Comment: Speci men Type: BLOOD SPECIMENOrdering Facility: [facility] Address: [address] [place] [address] Performed By: #### 1 988-5, 84329-3, 43192-5, 0-3 ####MASON LABORATORYCLIA [id number] [place] [address] [place] Chloride [Moles/Vol] 98 mmol/L Normal 98-[address] [facility] Comment on above: Order Comment: Speci men Type: BLOOD SPECIMENOrdering Facility: [facility] Address: [address] [place] [address] Performed By: #### 1 988-5, 46476-7, 63699-9, 0-3 ####MASON LABORATORYCLIA [id number] [place] [address] [place] CO2 [Moles/Vol] 28 mmol/L Normal 22-30 [facility] Comment on above: Order Comment: Speci men Type: BLOOD SPECIMENOrdering Facility: [facility] Address: [address] [place] [address] Performed By: #### 1 988-5, 01792-7, 41299-9, 3040-3 ####MASON LABORATORYCLIA [id number] [place] [address] [place] Creatinine [Mass/Vol] 0.76 mg/dL Normal 0.58-0.96 [facility] Comment on above: Order Comment: Speci men Type: BLOOD SPECIMENOrdering Facility: [facility] Address: [address] [place] [address] Performed By: #### 1 988-5, 83902-7, 97442-0, 3040-3 ####MASON LABORATORYCLIA [id number] [place] [id number] [place] Creatinine and Glomerular filtration rate.predicted panel (S/P/Bld) 75 mL/min/1.73m??? Normal >=60 [facility] Comment on above: Order Comment: Fan meade Type: BLOOD SPECIMENOrdering Facility: [facility] Address: [address] [place] [address] Result Comment: Hilda mated Glomerular Filtration Rate [...] actual GFR. Performed By: #### 1 988-5, 10053-0, 57620-5, 3040-3 ####MASON LABORATORYCLIA [id number] [place] [id number] [place] Glucose [Mass/Vol] 260 mg/dL High 74-99 [facility] Comment on above: Order Comment: Fan meade Type: BLOOD SPECIMENOrdering Facility: [facility] Address: [address] [place] [address] Result Comment: The [place] [employer] (ADA) provides guidance for cutoff [...] Standards of Medical Care in Diabetes 2016, [place] [employer]. Diabetes Care. 2016.39(Suppl 1). Performed By: #### 1 988-5, 52465-0, 08623-9, 0-3 ####VILLARREAL LABORATORYCLIA [id number] [place] [address] [place] Potassium [Moles/Vol] 4.5 mmol/L Normal 3.7-5.1 [facility] Comment on above: Order Comment: Speci men Type: BLOOD SPECIMENOrdering Facility: [facility] Address: [address] [place] [address] Performed By: #### 1 988-5, 91002-1, 85822-2, 0-3 ####MASON LABORATORYCLIA [id number] [place] [id number] [place] Protein [Mass/Vol] 5.5 g/dL Low 6.3-8.0 [facility] Comment on above: Order Comment: Speci men Type: BLOOD SPECIMENOrdering Facility: [facility] Address: [address] [place] [address] Performed By: #### 1 988-5, 40695-4, 66218-0, 0-3 ####VILLARREAL LABORATORYCLIA [id number] [place] [id number] [place] Sodium [Moles/Vol] 135 mmol/L Low 136-144 [facility] Comment on above: Order Comment: Speci men Type: BLOOD SPECIMENOrdering Facility: [facility] Address: [address] [place] [address] Performed By: #### 1 988-5, 24592-8, 34350-0, 0-3 ####VILLARREAL LABORATORYCLIA [id number] [place] [address] [place] Urea nitrogen [Mass/Vol] 43 mg/dL High 7-21 [facility] Comment on above: Order Comment: Speci men Type: BLOOD SPECIMENOrdering Facility: [facility] Address: [address] [place] [address] Performed By: #### 1 988-5, 56697-7, 37918-4, 3040-3 ####VILLARREAL LABORATORYCLIA [id number] [place] [address] [place] ESR Westergren method (Bld) [Velocity]on 12-07-2024 ESR (Bld) [Velocity] 103 mm/h High 0-[address] [facility] Comment on above: Order Comment: Speci men Type: BLOOD SPECIMENOrdering Facility: [facility] Address: [address] [place] [address] Performed By: #### 4 537-7 ####[facility] LABCLIA [id number] [facility] [id number] [address] [place] Folate SerPl-mCncon 12-07-19 25 Folate [Mass/Vol] 7.7 ng/mL Normal >4.7 [facility] Comment on above: Order Comment: Speci men Type: BLOOD SPECIMENOrdering Facility: [facility] Address: [address] [place] [address] Performed By: #### 2 284-8, 2132-9 ####MASON LABORATORYCLIA [id number] [address] STATES OF [facility] Lipase SerPl-cCncon 12-07-19 25 Lipase [Catalytic activity/Vol] 50 U/L Normal 16-61 [facility] Comment on above: Order Comment: Speci men Type: BLOOD SPECIMENOrdering Facility: [facility] Address: [address] [place] [address] Performed By: #### 1 988-5, 67910-3, 29889-3, 3040-3 ####MASON LABORATORYCLIA [id number] [place] [id number] [place] Magnesium SerPl-mCncon 12-07 Magnesium [Mass/Vol] 1.7 mg/dL Normal 1.7-2.[address] [facility] Comment on above: Order Comment: Speci men Type: BLOOD SPECIMENOrdering Facility: [facility] Address: [address] [place] [address] Performed By: #### 1 988-5, 80704-0, 00284-1, 3040-3 ####MASON LABORATORYCLIA [id number] [place] [address] [place] US DVT LOWER BILon 01-24-202 5 US DVT LOWER RADHA Normal [facility] Vit B12 SerPl-mCncon 025 Cobalamin (Vitamin B12) [Mass/Vol] 400 pg/mL Normal 232-1245 [facility] Comment on above: Order Comment: Speci men Type: BLOOD SPECIMENOrdering Facility: [facility] Address: [address] [place] [address] Performed By: #### 2 284-8, 2132-9 ####MASON LABORATORYCLIA [id number] [place] [address] [place] XR ABD 2V SUPINE W UPR/DECUB /CTLon 12-07-2024 XR ABD 2V SUPINE W UPR/DECUB/CTL Normal [facility] CASE MANAGEMon 12-06-2024 CASE MANAGEM [facility] CBC W Auto Differential pane l (Bld)on 12-06-2024 Basophils (Bld) [#/Vol] 0.03 10*3/uL Normal <0.11 [facility] Comment on above: Order Comment: Speci men Type: BLOOD SPECIMENOrdering Facility: [facility] Address: [address] [place] [address] Performed By: #### 5 7021-8 ####VILLARREAL LABORATORYCLIA [id number] [address] STATES [facility] Basophils/100 WBC (Bld) 0.2 % Normal [facility] Comment on above: Order Comment: Speci men Type: BLOOD SPECIMENOrdering Facility: [facility] Address: [address] [place] [address] Performed By: #### 5 7021-8 ####VILLARREAL LABORATORYCLIA [id number] [place] [address] [place] Differential cell count method Nom (Bld) Auto Normal [facility] Comment on above: Order Comment: Speci men Type: BLOOD SPECIMENOrdering Facility: [facility] Address: [address] [place] [address] Performed By: #### 5 7021-8 ####VILLARREAL LABORATORYCLIA [id number] [place] [address] [place] Eosinophils (Bld) [#/Vol] 0.09 10*3/uL Normal <0.46 [facility] Comment on above: Order Comment: Speci men Type: BLOOD SPECIMENOrdering Facility: [facility] Address: [address] [place] [address] Performed By: #### 5 7021-8 ####VILLARREAL LABORATORYCLIA [id number] [address] [place] Eosinophils/100 WBC (Bld) 0.6 % Normal [facility] Comment on above: Order Comment: Speci men Type: BLOOD SPECIMENOrdering Facility: [facility] Address: [address] [place] [address] Performed By: #### 5 7021-8 ####VILLARREAL LABORATORYCLIA [id number] [address] Erythrocyte distribution width (RBC) [Ratio] 15.9 % High 11.5-15.0 [facility] Comment on above: Order Comment: Speci men Type: BLOOD SPECIMENOrdering Facility: [facility] Address: [address] [place] [address] Performed By: #### 5 7021-8 ####VILLARREAL LABORATORYCLIA [id number] [address] Hematocrit (Bld) [Volume fraction] 25.5 % Low 36.0-46.0 [facility] Comment on above: Order Comment: Speci men Type: BLOOD SPECIMENOrdering Facility: [facility] Address: [address] [place] [address] Performed By: #### 5 7021-8 ####VILLARREAL LABORATORYCLIA [id number] [address] [place] Hemoglobin (Bld) [Mass/Vol] 8.3 g/dL Low 11.5-15.5 [facility] Comment on above: Order Comment: Speci men Type: BLOOD SPECIMENOrdering Facility: [facility] Address: [address] [place] [address] Performed By: #### 5 7021-8 ####VILLARREAL LABORATORYCLIA [id number] [address] [place] Immature granulocytes (Bld) [#/Vol] 0.15 10*3/uL High <0.10 [facility] Comment on above: Order Comment: Speci men Type: BLOOD SPECIMENOrdering Facility: [facility] Address: [address] [place] [address] Performed By: #### 5 7021-8 ####VILLARREAL LABORATORYCLIA [id number] [address] [place] Immature granulocytes/100 WBC (Bld) 1.0 % Normal [facility] Comment on above: Order Comment: Speci men Type: BLOOD SPECIMENOrdering Facility: [facility] Address: [address] [place] [address] Performed By: #### 5 7021-8 ####VILLARREAL LABORATORYCLIA [id number] [address] [place] Lymphocytes (Bld) [#/Vol] 0.98 10*3/uL Low 1.00-4.00 [facility] Comment on above: Order Comment: Speci men Type: BLOOD SPECIMENOrdering Facility: [facility] Address: [address] [place] [address] Performed By: #### 5 7021-8 ####VILLARREAL LABORATORYCLIA [id number] [address] STATES [facility] Lymphocytes/100 WBC (Bld) 6.7 % Normal [facility] Comment on above: Order Comment: Speci men Type: BLOOD SPECIMENOrdering Facility: [facility] Address: [address] [place] [address] Performed By: #### 5 7021-8 ####VILLARREAL LABORATORYCLIA [id number] [place] [address] [place] MCH (RBC) [Entitic mass] 27.9 pg Normal 26.0-34.0 [facility] Comment on above: Order Comment: Speci men Type: BLOOD SPECIMENOrdering Facility: [facility] Address: [address] [place] [address] Performed By: #### 5 7021-8 ####VILLARREAL LABORATORYCLIA [id number] [place] [address] [place] MCHC (RBC) [Mass/Vol] 32.5 g/dL Normal 30.5-36.0 [facility] Comment on above: Order Comment: Speci men Type: BLOOD SPECIMENOrdering Facility: [facility] Address: [address] [place] [address] Performed By: #### 5 7021-8 ####VILLARREAL LABORATORYCLIA [id number] [place] [address] [place] MCV (RBC) [Entitic vol] 85.9 fL Normal 80.0-100.[address] [facility] Comment on above: Order Comment: Speci men Type: BLOOD SPECIMENOrdering Facility: [facility] Address: [address] [place] [address] Performed By: #### 5 7021-8 ####VILLARREAL LABORATORYCLIA [id number] [place] [address] [place] Monocytes (Bld) [#/Vol] 0.94 10*3/uL High <0.87 [facility] Comment on above: Order Comment: Speci men Type: BLOOD SPECIMENOrdering Facility: [facility] Address: [address] [place] [address] Performed By: #### 5 7021-8 ####VILLARREAL LABORATORYCLIA [id number] [address] Monocytes/100 WBC (Bld) 6.5 % Normal [facility] Comment on above: Order Comment: Speci men Type: BLOOD SPECIMENOrdering Facility: [facility] Address: [address] [place] [address] Performed By: #### 5 7021-8 ####VILLARREAL LABORATORYCLIA [id number] [place] [address] [place] Neutrophils (Bld) [#/Vol] 12.37 10*3/uL High 1.45-7.50 [facility] Comment on above: Order Comment: Speci men Type: BLOOD SPECIMENOrdering Facility: [facility] Address: [address] [place] [address] Performed By: #### 5 7021-8 ####VILLARREAL LABORATORYCLIA [id number] [address] STATES [facility] Neutrophils/100 WBC (Bld) 85.0 % Normal [facility] Comment on above: Order Comment: Speci men Type: BLOOD SPECIMENOrdering Facility: [facility] Address: [address] [place] [address] Performed By: #### 5 7021-8 ####VILLARREAL LABORATORYCLIA [id number] [place] [address] [place] Nucleated RBC (Bld) [#/Vol] 10*3/uL Normal <0.01 [facility] Comment on above: Order Comment: Speci men Type: BLOOD SPECIMENOrdering Facility: [facility] Address: [address] [place] [address] Performed By: #### 5 7021-8 ####VILLARREAL LABORATORYCLIA [id number] [address] [place] Nucleated RBC/100 WBC (Bld) [Ratio] 0.0 /100 WBC Normal [facility] Comment on above: Order Comment: Speci men Type: BLOOD SPECIMENOrdering Facility: [facility] Address: [address] [place] [address] Performed By: #### 5 7021-8 ####VILLARREAL LABORATORYCLIA [id number] [place] [address] [place] Platelet mean volume (Bld) [Entitic vol] 8.3 fL Low 9.0-12.7 [facility] Comment on above: Order Comment: Speci men Type: BLOOD SPECIMENOrdering Facility: [facility] Address: [address] [place] [address] Performed By: #### 5 7021-8 ####VILLARREAL LABORATORYCLIA [id number] [place] [address] [place] Platelets (Bld) [#/Vol] 602 10*3/uL High 150-400 [facility] Comment on above: Order Comment: Speci men Type: BLOOD SPECIMENOrdering Facility: [facility] Address: [address] [place] [address] Performed By: #### 5 7021-8 ####VILLARREAL LABORATORYCLIA [id number] [place] [address] [place] RBC (Bld) [#/Vol] 2.97 10*6/uL Low 3.90-5.20 [facility] Comment on above: Order Comment: Speci men Type: BLOOD SPECIMENOrdering Facility: [facility] Address: [address] [place] [address] Performed By: #### 5 7021-8 ####MASON LABORATORYCLIA [id number] [place] [address] [place] WBC (Bld) [#/Vol] 14.56 10*3/uL High 3.70-11.[address] [facility] Comment on above: Order Comment: Speci men Type: BLOOD SPECIMENOrdering Facility: [facility] Address: [address] [place] [address] Performed By: #### 5 7021-8 ####MASON LABORATORYCLIA [id number] [address] CONSULTon 12-06-2024 CONSULT Normal [facility] CONSULT Normal [facility] CONSULT PROGon 12-06-2024 CONSULT PROG Normal [facility] CONSULT PROG [facility] Comprehensive metabolic 2000 panelon 12-06-2024 Albumin [Mass/Vol] 2.5 g/dL Low 3.9-4.9 [facility] Comment on above: Order Comment: Speci men Type: BLOOD SPECIMENOrdering Facility: [facility] Address: [address] [place] [address] Performed By: #### 2 951-2, , ####MASON LABORATORYCLIA [id number] [place] [id number] [facility] ALP [Catalytic activity/Vol] 112 U/L Normal 34-123 [facility] Comment on above: Order Comment: Speci men Type: BLOOD SPECIMENOrdering Facility: [facility] Address: [address] [place] [address] Performed By: #### 2 951-2, , 78365-8 ####MASON LABORATORYCLIA [id number] [place] [address] [place] ALT [Catalytic activity/Vol] U/L Low 7-38 [facility] Comment on above: Order Comment: Speci men Type: BLOOD SPECIMENOrdering Facility: [facility] Address: [address] [place] [id number] Performed By: #### 2 951-2, , ####VILLARREAL LABORATORYCLIA [id number] [place] [address] [place] Anion gap [Moles/Vol] 10 mmol/L Normal 8-15 [facility] Comment on above: Order Comment: Speci men Type: BLOOD SPECIMENOrdering Facility: [facility] Address: [address] [place] [address] Performed By: #### 2 951-2, , ####VILLARREAL LABORATORYCLIA [id number] [address] [place] AST [Catalytic activity/Vol] 25 U/L Normal 13-35 [facility] Comment on above: Order Comment: Speci men Type: BLOOD SPECIMENOrdering Facility: [facility] Address: [address] [place] [address] Performed By: #### 2 951-2, , ####VILLARREAL LABORATORYCLIA [id number] [place] [address] [place] Bilirubin [Mass/Vol] mg/dL Low 0.2-1.[address] [facility] Comment on above: Order Comment: Speci men Type: BLOOD SPECIMENOrdering Facility: [facility] Address: [address] [place] [address] Performed By: #### 2 951-2, , ####VILLARREAL LABORATORYCLIA [id number] [place] [address] [place] Calcium [Mass/Vol] 9.5 mg/dL Normal 8.5-10.2 [facility] Comment on above: Order Comment: Speci men Type: BLOOD SPECIMENOrdering Facility: [facility] Address: [address] [place] [address] Performed By: #### 2 951-2, , ####MASON LABORATORYCLIA [id number] [place] [address] [place] Chloride [Moles/Vol] 97 mmol/L Low 98-[address] [facility] Comment on above: Order Comment: Speci men Type: BLOOD SPECIMENOrdering Facility: [facility] Address: [address] [place] [address] Performed By: #### 2 951-2, , ####MASON LABORATORYCLIA [id number] [place] [id number] [place] CO2 [Moles/Vol] 27 mmol/L Normal 22-30 [facility] Comment on above: Order Comment: Speci men Type: BLOOD SPECIMENOrdering Facility: [facility] Address: [address] [place] [address] Performed By: #### 2 951-2, , ####MASON LABORATORYCLIA [id number] [place] [address] [place] [facility] Creatinine [Mass/Vol] 0.95 mg/dL Normal 0.58-0.96 [facility] Comment on above: Order Comment: Speci men Type: BLOOD SPECIMENOrdering Facility: [facility] Address: [address] [place] [address] Performed By: #### 2 951-2, , ####MASON LABORATORYCLIA [id number] [address] Creatinine and Glomerular filtration rate.predicted panel (S/P/Bld) 58 mL/min/1.73m??? Low >=60 [facility] Comment on above: Order Comment: Speci men Type: BLOOD SPECIMENOrdering Facility: [facility] Address: [address] [place] [address] Result Comment: Hilda mated Glomerular Filtration Rate [...] GFR. Performed By: #### 2 951-2, , ####MASON LABORATORYCLIA [id number] [place] [address] [place] Glucose [Mass/Vol] 93 mg/dL Normal 74-99 [facility] Comment on above: Order Comment: Fan meade Type: BLOOD SPECIMENOrdering Facility: [facility] Address: [address] [place] [address] Result Comment: The [place] [employer] (ADA) provides guidance for cutoff [...] Standards of Medical Care in Diabetes 2016, [employer]. Diabetes Care. 2016.39(Suppl 1). Performed By: #### 2 951-2, , ####VILLARREAL LABORATORYCLIA [id number] [place] [id number] [place] Potassium [Moles/Vol] 3.8 mmol/L Normal 3.7-5.1 [facility] Comment on above: Order Comment: aFn meade Type: BLOOD SPECIMENOrdering Facility: [facility] Address: [address] [place] [address] Performed By: #### 2 951-2, , ####MASON LABORATORYCLIA [id number] [place] [address] [place] Protein [Mass/Vol] 5.7 g/dL Low 6.3-8.0 [facility] Comment on above: Order Comment: Fan meade Type: BLOOD SPECIMENOrdering Facility: [facility] Address: [address] [place], [place] [address] Performed By: #### 2 951-2, , ####VILLARREAL LABORATORYCLIA [id number] [place] [address] [place] Urea nitrogen [Mass/Vol] 45 mg/dL High 7-21 [facility] Comment on above: Order Comment: Speci men Type: BLOOD SPECIMENOrdering Facility: [facility] Address: [address] [place] [address] Performed By: #### 2 951-2, , ####VILLARREAL LABORATORYCLIA [id number] [place] [address] [place] Magnesium SerPl-mCncon 12-06 Magnesium [Mass/Vol] 1.8 mg/dL Normal 1.7-2.[address] [facility] Comment on above: Order Comment: Speci men Type: BLOOD SPECIMENOrdering Facility: [facility] Address: [address] [place] [address] Performed By: #### 2 951-2, , ####VILLARREAL LABORATORYCLIA [id number] [place] [id number] [place] Sodium SerPl-sCncon 12-06-19 25 Sodium [Moles/Vol] 135 mmol/L Low 136-144 [facility] Comment on above: Order Comment: Speci men Type: BLOOD SPECIMENOrdering Facility: [facility] Address: [address] [place] [address] Performed By: #### 2 951-2 ####VILLARREAL LABORATORYCLIA [id number] [place] [address] [place] Sodium [Moles/Vol] 132 mmol/L Low 136-144 [facility] Comment on above: Order Comment: Speci men Type: BLOOD SPECIMENOrdering Facility: [facility] Address: [address] [place] [address] Performed By: #### 2 951-2 ####VILLARREAL LABORATORYCLIA [id number] [place] [address] [place] Sodium [Moles/Vol] 136 mmol/L Normal 136-144 [facility] Comment on above: Order Comment: Speci men Type: BLOOD SPECIMENOrdering Facility: [facility] Address: [address] [place] [address] Performed By: #### 2 951-2 ####VILLARREAL LABORATORYCLIA [id number] [place] [address] [place] Sodium [Moles/Vol] 134 mmol/L Low 136-144 [facility] Comment on above: Order Comment: Speci men Type: BLOOD SPECIMENOrdering Facility: [facility] Address: [address] [place] [address] Performed By: #### 2 951-2, 39225-0, 53693-8 ####VILLARREAL LABORATORYCLIA [id number] [place] [address] [place] Sodium [Moles/Vol] 131 mmol/L Low 136-144 [facility] Comment on above: Order Comment: Speci men Type: BLOOD SPECIMENOrdering Facility: [facility] Address: [address] [place] [address] Performed By: #### 2 951-2 ####VILLARREAL LABORATORYCLIA [id number] [place] [address] [place] THERAPY NTon 12-06-2024 THERAPY NT Normal [facility] URINALYSIS, REFLEX MICROSCOP ICon 12-06-2024 Bilirubin Ql (U) Negative Normal Negative [facility] Comment on above: Order Comment: Speci men Type: URINE SPECIMENOrdering Facility: [facility] Address: [address] [place] [address] Performed By: #### L [id number] ####VILLARREAL LABORATORYCLIA [id number] [address] [place] Clarity (Unsp spec) Clear Normal Clear [facility] Comment on above: Order Comment: Speci men Type: URINE SPECIMENOrdering Facility: [facility] Address: [address] [place] [address] Performed By: #### L [id number] ####VILLARREAL LABORATORYCLIA [id number] [address] [place] Color (U) Yellow Normal Yellow [facility] Comment on above: Order Comment: Speci men Type: URINE SPECIMENOrdering Facility: [facility] Address: [address] [place] [address] Performed By: #### L [id number] ####VILLARREAL LABORATORYCLIA [id number] [address] STATES OF [facility] Epithelial cells LM.HPF (Urine sed) [#/Area] Few Normal [facility] Comment on above: Order Comment: Speci men Type: URINE SPECIMENOrdering Facility: [facility] Address: [address] [place] [address] Performed By: #### L [id number] ####VILLARREAL LABORATORYCLIA [id number] [address] [place] Glucose Test strip (U) [Mass/Vol] Negative Normal Negative [facility] Comment on above: Order Comment: Speci men Type: URINE SPECIMENOrdering Facility: [facility] Address: [address] [place] [address] Performed By: #### L [id number] ####VILLARREAL LABORATORYCLIA [id number] [place] [address] [place] Hemoglobin Ql (U) Negative Normal Negative [facility] Comment on above: Order Comment: Speci men Type: URINE SPECIMENOrdering Facility: [facility] Address: [address] [place] [address] Performed By: #### L [id number] ####VILLARREAL LABORATORYCLIA [id number] [address] [place] Ketones Ql (U) Negative Normal Negative [facility] Comment on above: Order Comment: Speci men Type: URINE SPECIMENOrdering Facility: [facility] Address: [address] [place] [address] Performed By: #### L [id number] ####VILLARREAL LABORATORYCLIA [id number] [address] Leukocyte esterase Test strip Ql (U) 1+ Abnormal Negative [facility] Comment on above: Order Comment: Speci men Type: URINE SPECIMENOrdering Facility: [facility] Address: [address] [place] [address] Performed By: #### L [id number] ####VILLARREAL LABORATORYCLIA [id number] [place] [address] [place] Nitrite Ql (U) Negative Normal Negative [facility] Comment on above: Order Comment: Speci men Type: URINE SPECIMENOrdering Facility: [facility] Address: [address] [place] [address] Performed By: #### L [id number] ####VILLARREAL LABORATORYCLIA [id number] [address] [place] pH (U) 6.0 [pH] Normal 5.0-8.0 [facility] Comment on above: Order Comment: Speci men Type: URINE SPECIMENOrdering Facility: [facility] Address: [address] [place] [address] Performed By: #### L [id number] ####VILLARREAL LABORATORYCLIA [id number] [address] Protein (U) [Mass/Vol] 1+ Abnormal Negative [facility] Comment on above: Order Comment: Speci men Type: URINE SPECIMENOrdering Facility: [facility] Address: [address] [place] [address] Performed By: #### L [id number] ####VILLARREAL LABORATORYCLIA [id number] [address] RBC LM.HPF (Urine sed) [#/Area] 0-3 /HPF Normal 0-3 /HPF [facility] Comment on above: Order Comment: Speci men Type: URINE SPECIMENOrdering Facility: [facility] Address: [address] [place] [address] Performed By: #### L [id number] ####VILLARREAL LABORATORYCLIA [id number] [address] Specific gravity (U) [Rel density] 1.010 Normal 1.005-1.030 [facility] Comment on above: Order Comment: Speci men Type: URINE SPECIMENOrdering Facility: [facility] Address: [address] [place] [address] Performed By: #### L [id number] ####VILLARREAL LABORATORYCLIA [id number] [place] [address] [place] Urobilinogen Ql (U) 0.2 EU/dL Normal 0.2-1.0 EU/dL [facility] Comment on above: Order Comment: Speci men Type: URINE SPECIMENOrdering Facility: [facility] Address: [address] [place] [address] Performed By: #### L [id number] ####VILLARREAL LABORATORYCLIA [id number] [place] [address] [place] WBC LM.HPF (Urine sed) [#/Area] 0-5 /HPF Normal 0-5 /HPF [facility] Comment on above: Order Comment: Speci men Type: URINE SPECIMENOrdering Facility: [facility] Address: [address] [place] [address] Performed By: #### L [id number] ####MASON LABORATORYCLIA [id number] [address] [place] Yeast.budding LM.HPF (Urine sed) [#/Area] Few Abnormal None Seen [facility] Comment on above: Order Comment: Speci men Type: URINE SPECIMENOrdering Facility: [facility] Address: [address] [place] [address] Performed By: #### L [id number] ####MASON LABORATORYCLIA [id number] [place] [address] [place] ALLIED HEALTHon 12-05-2024 ALLIED HEALTH Normal [facility] CASE MANAGEMon 12-05-2024 CASE MANAGEM Normal [facility] CASE MANAGEM Normal [facility] CBC W Auto Differential pane l (Bld)on 12-05-2024 Basophils (Bld) [#/Vol] 10*3/uL Normal <0.[address] [facility] Comment on above: Order Comment: Speci men Type: BLOOD SPECIMENOrdering Facility: [facility] Address: [address] [place] [address] Performed By: #### 5 7021-8 ####MASON LABORATORYCLIA [id number] [address] [place] Basophils/100 WBC (Bld) 0.1 % Normal [facility] Comment on above: Order Comment: Speci men Type: BLOOD SPECIMENOrdering Facility: [facility] Address: [address] [place] [address] Performed By: #### 5 7021-8 ####VILLARREAL LABORATORYCLIA [id number] [place] [address] [place] Differential cell count method Nom (Bld) Auto Normal [facility] Comment on above: Order Comment: Speci men Type: BLOOD SPECIMENOrdering Facility: [facility] Address: [address] [place] [address] Performed By: #### 5 7021-8 ####VILLARREAL LABORATORYCLIA [id number] [place] [address] [place] Eosinophils (Bld) [#/Vol] 10*3/uL Normal <0.46 [facility] Comment on above: Order Comment: Speci men Type: BLOOD SPECIMENOrdering Facility: [facility] Address: [address] [place] [address] Performed By: #### 5 7021-8 ####VILLARREAL LABORATORYCLIA [id number] [place] [address] [place] Eosinophils/100 WBC (Bld) 0.0 % Normal [facility] Comment on above: Order Comment: Speci men Type: BLOOD SPECIMENOrdering Facility: [facility] Address: [address] [place] [address] Performed By: #### 5 7021-8 ####VILLARREAL LABORATORYCLIA [id number] [place] [address] [place] Erythrocyte distribution width (RBC) [Ratio] 15.8 % High 11.5-15.0 [facility] Comment on above: Order Comment: Speci men Type: BLOOD SPECIMENOrdering Facility: [facility] Address: [address] [place] [address] Performed By: #### 5 7021-8 ####VILLARREAL LABORATORYCLIA [id number] [place] [address] [place] Hematocrit (Bld) [Volume fraction] 26.3 % Low 36.0-46.0 [facility] Comment on above: Order Comment: Speci men Type: BLOOD SPECIMENOrdering Facility: [facility] Address: [address] [place] [address] Performed By: #### 5 7021-8 ####VILLARREAL LABORATORYCLIA [id number] [place] [address] [place] Hemoglobin (Bld) [Mass/Vol] 8.5 g/dL Low 11.5-15.5 [facility] Comment on above: Order Comment: Speci men Type: BLOOD SPECIMENOrdering Facility: [facility] Address: [address] [place] [address] Performed By: #### 5 7021-8 ####VILLARREAL LABORATORYCLIA [id number] [place] [address] [place] Immature granulocytes (Bld) [#/Vol] 0.11 10*3/uL High <0.10 [facility] Comment on above: Order Comment: Speci men Type: BLOOD SPECIMENOrdering Facility: [facility] Address: [address] [place] [address] Performed By: #### 5 7021-8 ####VILLARREAL LABORATORYCLIA [id number] [place] [address] [place] Immature granulocytes/100 WBC (Bld) 0.9 % Normal [facility] Comment on above: Order Comment: Speci men Type: BLOOD SPECIMENOrdering Facility: [facility] Address: [address] [place] [address] Performed By: #### 5 7021-8 ####VILLARREAL LABORATORYCLIA [id number] [place] [address] [place] Lymphocytes (Bld) [#/Vol] 0.46 10*3/uL Low 1.00-4.00 [facility] Comment on above: Order Comment: Speci men Type: BLOOD SPECIMENOrdering Facility: [facility] Address: [address] [place] [address] Performed By: #### 5 7021-8 ####VILLARREAL LABORATORYCLIA [id number] [place] [address] [place] Lymphocytes/100 WBC (Bld) 3.8 % Normal [facility] Comment on above: Order Comment: Speci men Type: BLOOD SPECIMENOrdering Facility: [facility] Address: [address] [place] [address] Performed By: #### 5 7021-8 ####VILLARREAL LABORATORYCLIA [id number] [address] MCH (RBC) [Entitic mass] 27.9 pg Normal 26.0-34.0 [facility] Comment on above: Order Comment: Speci men Type: BLOOD SPECIMENOrdering Facility: [facility] Address: [address] [place] [address] Performed By: #### 5 7021-8 ####VILLARREAL LABORATORYCLIA [id number] [address] MCHC (RBC) [Mass/Vol] 32.3 g/dL Normal 30.5-36.0 [facility] Comment on above: Order Comment: Speci men Type: BLOOD SPECIMENOrdering Facility: [facility] Address: [address] [place] [address] Performed By: #### 5 7021-8 ####VILLARREAL LABORATORYCLIA [id number] [address] MCV (RBC) [Entitic vol] 86.2 fL Normal 80.0-100.[address] [facility] Comment on above: Order Comment: Speci men Type: BLOOD SPECIMENOrdering Facility: [facility] Address: [address] [place] [address] Performed By: #### 5 7021-8 ####VILLARREAL LABORATORYCLIA [id number] [address] Monocytes (Bld) [#/Vol] 0.18 10*3/uL Normal <0.87 [facility] Comment on above: Order Comment: Speci men Type: BLOOD SPECIMENOrdering Facility: [facility] Address: [address] [place] [address] Performed By: #### 5 7021-8 ####VILLARREAL LABORATORYCLIA [id number] [address] Monocytes/100 WBC (Bld) 1.5 % Normal [facility] Comment on above: Order Comment: Speci men Type: BLOOD SPECIMENOrdering Facility: [facility] Address: [facility] [place] [address] Performed By: #### 5 7021-8 ####VILLARREAL LABORATORYCLIA [id number] [place] [address] [place] Neutrophils (Bld) [#/Vol] 11.38 10*3/uL High 1.45-7.50 [facility] Comment on above: Order Comment: Speci men Type: BLOOD SPECIMENOrdering Facility: [facility] Address: [address] [place] [address] Performed By: #### 5 7021-8 ####VILLARREAL LABORATORYCLIA [id number] [address] [place] Neutrophils/100 WBC (Bld) 93.7 % Normal [facility] Comment on above: Order Comment: Speci men Type: BLOOD SPECIMENOrdering Facility: [facility] Address: [address] [place] [address] Performed By: #### 5 7021-8 ####VILLARREAL LABORATORYCLIA [id number] [place] [address] [place] Nucleated RBC (Bld) [#/Vol] 10*3/uL Normal <0.01 [facility] Comment on above: Order Comment: Speci men Type: BLOOD SPECIMENOrdering Facility: [facility] Address: [address] [place] [address] Performed By: #### 5 7021-8 ####VILLARREAL LABORATORYCLIA [id number] [address] [place] Nucleated RBC/100 WBC (Bld) [Ratio] 0.0 /100 WBC Normal [facility] Comment on above: Order Comment: Speci men Type: BLOOD SPECIMENOrdering Facility: [facility] Address: [address] [place] [address] Performed By: #### 5 7021-8 ####VILLARREAL LABORATORYCLIA [id number] [place] [address] [place] Platelet mean volume (Bld) [Entitic vol] 8.8 fL Low 9.0-12.7 [facility] Comment on above: Order Comment: Speci men Type: BLOOD SPECIMENOrdering Facility: [facility] Address: [facility] [place] [address] Performed By: #### 5 7021-8 ####VILLARREAL LABORATORYCLIA [id number] [address] [place] Platelets (Bld) [#/Vol] 568 10*3/uL High 150-400 [facility] Comment on above: Order Comment: Speci men Type: BLOOD SPECIMENOrdering Facility: [facility] Address: [address] [place] [address] Performed By: #### 5 7021-8 ####VILLARREAL LABORATORYCLIA [id number] [address] [place] RBC (Bld) [#/Vol] 3.05 10*6/uL Low 3.90-5.20 [facility] Comment on above: Order Comment: Speci men Type: BLOOD SPECIMENOrdering Facility: [facility] Address: [address] [place] [address] Performed By: #### 5 7021-8 ####VILLARREAL LABORATORYCLIA [id number] [address] [place] WBC (Bld) [#/Vol] 12.14 10*3/uL High 3.70-11.[address] [facility] Comment on above: Order Comment: Speci men Type: BLOOD SPECIMENOrdering Facility: [facility] Address: [facility] [place] [address] Performed By: #### 5 7021-8 ####VILLARREAL LABORATORYCLIA [id number] [address] [place] CBC panel Auto (Bld)on 12-05 Erythrocyte distribution width (RBC) [Ratio] 15.8 % High 11.5-15.0 [facility] Comment on above: Order Comment: Speci men Type: BLOOD SPECIMENOrdering Facility: [facility] Address: [address] [place] [address] Performed By: #### 5 8410-2 ####VILLARREAL LABORATORYCLIA [id number] [address] Hematocrit (Bld) [Volume fraction] 24.8 % Low 36.0-46.0 [facility] Comment on above: Order Comment: Speci men Type: BLOOD SPECIMENOrdering Facility: [facility] Address: [address] [place] [address] Performed By: #### 5 8410-2 ####VILLARREAL LABORATORYCLIA [id number] [address] Hemoglobin (Bld) [Mass/Vol] 8.2 g/dL Low 11.5-15.5 [facility] Comment on above: Order Comment: Speci men Type: BLOOD SPECIMENOrdering Facility: [facility] Address: [address] [place] [address] Performed By: #### 5 8410-2 ####VILLARREAL LABORATORYCLIA [id number] [address] MCH (RBC) [Entitic mass] 28.1 pg Normal 26.0-34.0 [facility] Comment on above: Order Comment: Speci men Type: BLOOD SPECIMENOrdering Facility: [facility] Address: [address] [place] [address] Performed By: #### 5 8410-2 ####VILLARREAL LABORATORYCLIA [id number] [address] MCHC (RBC) [Mass/Vol] 33.1 g/dL Normal 30.5-36.0 [facility] Comment on above: Order Comment: Speci men Type: BLOOD SPECIMENOrdering Facility: [facility] Address: [address] [place] [address] Performed By: #### 5 8410-2 ####VILLARREAL LABORATORYCLIA [id number] [address] MCV (RBC) [Entitic vol] 84.9 fL Normal 80.0-100.[address] [facility] Comment on above: Order Comment: Speci men Type: BLOOD SPECIMENOrdering Facility: [facility] Address: [address] [place] [address] Performed By: #### 5 8410-2 ####VILLARREAL LABORATORYCLIA [id number] [place] [address] [place] Nucleated RBC (Bld) [#/Vol] 10*3/uL Normal <0.01 [facility] Comment on above: Order Comment: Speci men Type: BLOOD SPECIMENOrdering Facility: [facility] Address: [address] [place] [address] Performed By: #### 5 8410-2 ####VILLARREAL LABORATORYCLIA [id number] [place] [address] [place] Platelet mean volume (Bld) [Entitic vol] 8.8 fL Low 9.0-12.7 [facility] Comment on above: Order Comment: Speci men Type: BLOOD SPECIMENOrdering Facility: [facility] Address: [address] [place] [address] Performed By: #### 5 8410-2 ####VILLARREAL LABORATORYCLIA [id number] [address] [place] Platelets (Bld) [#/Vol] 574 10*3/uL High 150-400 [facility] Comment on above: Order Comment: Speci men Type: BLOOD SPECIMENOrdering Facility: [facility] Address: [address] [place] [address] Performed By: #### 5 8410-2 ####VILLARREAL LABORATORYCLIA [id number] [place] [address] [place] RBC (Bld) [#/Vol] 2.92 10*6/uL Low 3.90-5.20 [facility] Comment on above: Order Comment: Speci men Type: BLOOD SPECIMENOrdering Facility: [facility] Address: [address] [place] [address] Performed By: #### 5 8410-2 ####VILLARREAL LABORATORYCLIA [id number] [address] [place] WBC (Bld) [#/Vol] 13.26 10*3/uL High 3.70-11.[address] [facility] Comment on above: Order Comment: Speci men Type: BLOOD SPECIMENOrdering Facility: [facility] Address: [address] [place] [id number] Performed By: #### 5 8410-2 ####VILLARREAL LABORATORYCLIA [id number] [place] [address] [place] CONSULT PROGon 12-05-2024 CONSULT PROG Normal [facility] CONSULT PROG Normal [facility] CONSULT PROG Normal [facility] Comprehensive metabolic 2000 panelon 12-05-2024 Albumin [Mass/Vol] 2.5 g/dL Low 3.9-4.9 [facility] Comment on above: Order Comment: Speci men Type: BLOOD SPECIMENOrdering Facility: [facility] Address: [facility] [place] [address] Performed By: #### 3 040-3, 54910-2 ####VILLARREAL LABORATORYCLIA [id number] [place] [address] [place] ALP [Catalytic activity/Vol] 117 U/L Normal 34-123 [facility] Comment on above: Order Comment: Speci men Type: BLOOD SPECIMENOrdering Facility: [facility] Address: [address] [place] [id number] Performed By: #### 3 040-3, ####VILLARREAL LABORATORYCLIA [id number] [place] [address] [place] ALT [Catalytic activity/Vol] U/L Low 7-38 [facility] Comment on above: Order Comment: Speci men Type: BLOOD SPECIMENOrdering Facility: [facility] Address: [address] [place] [address] Performed By: #### 3 040-3, ####VILLARREAL LABORATORYCLIA [id number] [place] [address] [place] Anion gap [Moles/Vol] 13 mmol/L Normal 8-15 [facility] Comment on above: Order Comment: Speci men Type: BLOOD SPECIMENOrdering Facility: [facility] Address: [address] [facility] [place] [id number] Performed By: #### 3 040-3, 31720-8 ####VILLARREAL LABORATORYCLIA [id number] [place] [address] [place] AST [Catalytic activity/Vol] 18 U/L Normal 13-35 [facility] Comment on above: Order Comment: Speci men Type: BLOOD SPECIMENOrdering Facility: [facility] Address: [address] [place] [address] [place] [address] Performed By: #### 3 040-3, ####VILLARREAL LABORATORYCLIA [id number] [place] [address] [place] Bilirubin [Mass/Vol] mg/dL Low 0.2-1.[address] [facility] Comment on above: Order Comment: Speci men Type: BLOOD SPECIMENOrdering Facility: [facility] Address: [address] [place] [address] Performed By: #### 3 -3, ####VILLARREAL LABORATORYCLIA [id number] [place] [address] [place] Calcium [Mass/Vol] 9.5 mg/dL Normal 8.5-10.2 [facility] Comment on above: Order Comment: Speci men Type: BLOOD SPECIMENOrdering Facility: [facility] Address: [address] [place] [address] Performed By: #### 3 040-3, ####VILLARREAL LABORATORYCLIA [id number] [place] [address] [place] Chloride [Moles/Vol] 92 mmol/L Low 98-[address] [facility] Comment on above: Order Comment: Speci men Type: BLOOD SPECIMENOrdering Facility: [facility] Address: [address] [place] [address] Performed By: #### 3 040-3, ####VILLARREAL LABORATORYCLIA [id number] [place] [address] [place] CO2 [Moles/Vol] 24 mmol/L Normal 22-30 [facility] Comment on above: Order Comment: Speci men Type: BLOOD SPECIMENOrdering Facility: [facility] Address: [address] [place] [address] Performed By: #### 3 040-3, ####VILLARREAL LABORATORYCLIA [id number] [place] [address] [place] Creatinine [Mass/Vol] 1.04 mg/dL High 0.58-0.96 [facility] Comment on above: Order Comment: Fan meade Type: BLOOD SPECIMENOrdering Facility: [facility] Address: [address] [place] [address] Performed By: #### 3 040-3, 33131-3 ####VILLARREAL LABORATORYCLIA [id number] [place] [address] [place] Creatinine and Glomerular filtration rate.predicted panel (S/P/Bld) 52 mL/min/1.73m??? Low >=60 [facility] Comment on above: Order Comment: Fan meade Type: BLOOD SPECIMENOrdering Facility: [facility] Address: [address] [place] [address] Result Comment: Hilda mated Glomerular Filtration Rate [...] actual GFR. Performed By: #### 3 040-3, 83303-0 ####VILLARREAL LABORATORYCLIA [id number] [address] [place] Glucose [Mass/Vol] 279 mg/dL High 74-99 [facility] Comment on above: Order Comment: Fan meade Type: BLOOD SPECIMENOrdering Facility: [facility] Address: [address] [place] [address] Result Comment: The [place] [employer] (ADA) provides guidance for cutoff [...] Standards of Medical Care in Diabetes 2016, [place] [employer]. Diabetes Care. 2016.39(Suppl 1). Performed By: #### 3 040-3, 84639-4 ####VILLARREAL LABORATORYCLIA [id number] [place] [address] [place] Potassium [Moles/Vol] 4.4 mmol/L Normal 3.7-5.1 [facility] Comment on above: Order Comment: Fan meade Type: BLOOD SPECIMENOrdering Facility: [facility] Address: [address] [place] [address] Performed By: #### 3 040-3, 19439-7 ####VILLARREAL LABORATORYCLIA [id number] [place] [address] [place] Protein [Mass/Vol] 5.8 g/dL Low 6.3-8.0 [facility] Comment on above: Order Comment: Fan meade Type: BLOOD SPECIMENOrdering Facility: [facility] Address: [address] [place] [address] Performed By: #### 3 -3, 88904-2 ####VILLARREAL LABORATORYCLIA [id number] [place] [address] [place] Sodium [Moles/Vol] 129 mmol/L Low 136-144 [facility] Comment on above: Order Comment: Fan meade Type: BLOOD SPECIMENOrdering Facility: [facility] Address: [address] [place] [address] Performed By: #### 3 -3, 86794-0 ####VILLARREAL LABORATORYCLIA [id number] [place] [address] [place] Urea nitrogen [Mass/Vol] 49 mg/dL High 7-21 [facility] Comment on above: Order Comment: Fan meade Type: BLOOD SPECIMENOrdering Facility: [facility] Address: [address] [place] [address] Performed By: #### 3 040-3, 34969-8 ####VILLARREAL LABORATORYCLIA [id number] [place] [address] [place] Albumin [Mass/Vol] 2.5 g/dL Low 3.9-4.9 [facility] Comment on above: Order Comment: Speci men Type: BLOOD SPECIMENOrdering Facility: [facility] Address: [address] [place] [id number] Performed By: #### 2 951-2, 07890-8, ####VILLARREAL LABORATORYCLIA [id number] [address] ALP [Catalytic activity/Vol] 122 U/L Normal 34-123 [facility] Comment on above: Order Comment: Speci men Type: BLOOD SPECIMENOrdering Facility: [facility] Address: [address] [place] [address] Performed By: #### 2 951-2, , ####VILLARREAL LABORATORYCLIA [id number] [address] ALT [Catalytic activity/Vol] U/L Low 7-38 [facility] Comment on above: Order Comment: Speci men Type: BLOOD SPECIMENOrdering Facility: [facility] Address: [address] [place] [id number] Performed By: #### 2 951-2, , ####VILLARREAL LABORATORYCLIA [id number] [address] Anion gap [Moles/Vol] 11 mmol/L Normal 8-15 [facility] Comment on above: Order Comment: Speci men Type: BLOOD SPECIMENOrdering Facility: [facility] Address: [address] [place] [id number] Performed By: #### 2 951-2, , ####VILLARREAL LABORATORYCLIA [id number] [place] [id number] [facility] AST [Catalytic activity/Vol] 21 U/L Normal 13-35 [facility] Comment on above: Order Comment: Speci men Type: BLOOD SPECIMENOrdering Facility: [facility] Address: [address] [facility] [place] [address] Performed By: #### 2 951-2, , ####VILLARREAL LABORATORYCLIA [id number] [place] [address] [place] Bilirubin [Mass/Vol] mg/dL Low 0.2-1.[address] [facility] Comment on above: Order Comment: Speci men Type: BLOOD SPECIMENOrdering Facility: [facility] Address: [address] [place] [address] Performed By: #### 2 951-2, , ####VILLARREAL LABORATORYCLIA [id number] [place] [address] [place] Calcium [Mass/Vol] 9.8 mg/dL Normal 8.5-10.2 [facility] Comment on above: Order Comment: Speci men Type: BLOOD SPECIMENOrdering Facility: [facility] Address: [address] [place] [address] Performed By: #### 2 951-2, , ####VILLARREAL LABORATORYCLIA [id number] [place] [address] [place] Chloride [Moles/Vol] 94 mmol/L Low 98-[address] [facility] Comment on above: Order Comment: Speci men Type: BLOOD SPECIMENOrdering Facility: [facility] Address: [address] [place] [address] Performed By: #### 2 951-2, , ####VILLARREAL LABORATORYCLIA [id number] [place] [address] [place] CO2 [Moles/Vol] 26 mmol/L Normal 22-30 [facility] Comment on above: Order Comment: Speci men Type: BLOOD SPECIMENOrdering Facility: [facility] Address: [address] [place], [place] [id number] Performed By: #### 2 951-2, , ####VILLARREAL LABORATORYCLIA [id number] [place] [address] [place] Creatinine [Mass/Vol] 0.89 mg/dL Normal 0.58-0.96 [facility] Comment on above: Order Comment: Speci men Type: BLOOD SPECIMENOrdering Facility: [facility] Address: [address] [place] [address] Performed By: #### 2 951-2, 67985-3, ####MASON LABORATORYCLIA [id number] [place] [id number] [place] Creatinine and Glomerular filtration rate.predicted panel (S/P/Bld) 62 mL/min/1.73m??? Normal >=60 [facility] Comment on above: Order Comment: Fan meade Type: BLOOD SPECIMENOrdering Facility: [facility] Address: [address] [place] [address] Result Comment: Hilda mated Glomerular Filtration Rate [...] actual GFR. Performed By: #### 2 951-2, 14167-2, 07471-9 ####VILLARREAL LABORATORYCLIA [id number] [place] [id number] [place] Glucose [Mass/Vol] 238 mg/dL High 74-99 [facility] Comment on above: Order Comment: Fan meade Type: BLOOD SPECIMENOrdering Facility: [facility] Address: [address] [place] [address] Result Comment: The [place] [employer] (ADA) provides guidance for cutoff [...] Standards of Medical Care in Diabetes 2016, [employer] [employer]. Diabetes Care. 2016.39(Suppl 1). Performed By: #### 2 951-2, 11330-0, ####MASON LABORATORYCLIA [id number] [place] [address] [place] Potassium [Moles/Vol] 5.2 mmol/L High 3.7-5.1 [facility] Comment on above: Order Comment: Speci men Type: BLOOD SPECIMENOrdering Facility: [facility] Address: [address] [place] [address] Performed By: #### 2 951-2, , ####MASON LABORATORYCLIA [id number] [place] [address] [place] Protein [Mass/Vol] 6.1 g/dL Low 6.3-8.0 [facility] Comment on above: Order Comment: Speci men Type: BLOOD SPECIMENOrdering Facility: [facility] Address: [address] [place] [address] Performed By: #### 2 951-2, , ####MASON LABORATORYCLIA [id number] [place] [address] [place] Urea nitrogen [Mass/Vol] 41 mg/dL High 7-21 [facility] Comment on above: Order Comment: Speci men Type: BLOOD SPECIMENOrdering Facility: [facility] Address: [address] [place] [address] Performed By: #### 2 951-2, , ####MASON LABORATORYCLIA [id number] [place] [address] [place] ECG COMPLETEon 12-05-2024 ECG COMPLETE Normal [facility] Lipase SerPl-cCncon 12-05-19 25 Lipase [Catalytic activity/Vol] 31 U/L Normal 16-61 [facility] Comment on above: Order Comment: Speci men Type: BLOOD SPECIMENOrdering Facility: [facility] Address: [address] [place] [address] Performed By: #### 3 040-3, 80686-1 ####MASON LABORATORYCLIA [id number] [place] [address] [place] Magnesium SerPl-mCncon 12-05 Magnesium [Mass/Vol] 2.0 mg/dL Normal 1.7-2.[address] [facility] Comment on above: Order Comment: Speci men Type: BLOOD SPECIMENOrdering Facility: [facility] Address: [address] [place] [address] Performed By: #### 2 951-2, 07538-6, ####VILLARREAL LABORATORYCLIA [id number] [place] [address] [place] SEPSIS LACTATEon 12-05-2024 Lactate [Moles/Vol] 1.5 mmol/L Normal 0.5-2.0 [facility] Comment on above: Order Comment: Speci men Type: BLOOD SPECIMENOrdering Facility: [facility] Address: [address] [place] [address] Performed By: #### S LACT ####VILLARREAL LABORATORYCLIA [id number] [place] [address] [place] Sodium SerPl-sCncon 12-05-19 25 Sodium [Moles/Vol] 127 mmol/L Low 136-144 [facility] Comment on above: Order Comment: Speci men Type: BLOOD SPECIMENOrdering Facility: [facility] Address: [address] [place] [address] Performed By: #### 2 951-2 ####VILLARREAL LABORATORYCLIA [id number] [place] [address] [place] Sodium [Moles/Vol] 129 mmol/L Low 136-144 [facility] Comment on above: Order Comment: Speci men Type: BLOOD SPECIMENOrdering Facility: [facility] Address: [address] [place] [address] Performed By: #### 2 951-2 ####VILLARREAL LABORATORYCLIA [id number] [place] [address] [place] Sodium [Moles/Vol] 131 mmol/L Low 136-144 [facility] Comment on above: Order Comment: Speci men Type: BLOOD SPECIMENOrdering Facility: [facility] Address: [address] [place] [address] Performed By: #### 2 951-2, 47119-7, 98232-3 ####MASON LABORATORYCLIA [id number] [place] [address] [place] THERAPY NTon 12-05-2024 THERAPY NT Normal [facility] XR ABDOMEN 1V SUPINEon 12-05 XR ABDOMEN 1V SUPINE Normal [facility] CASE MANAGEMon 12-04-2024 CASE MANAGEM Normal [facility] CBC W Auto Differential pane l (Bld)on 12-04-2024 Basophils (Bld) [#/Vol] 0.05 10*3/uL Normal <0.11 [facility] Comment on above: Order Comment: Speci men Type: BLOOD SPECIMENOrdering Facility: [facility] Address: [address] [place] [address] Performed By: #### 5 7021-8 ####MASON LABORATORYCLIA [id number] [place] [address] [place] Basophils/100 WBC (Bld) 0.2 % Normal [facility] Comment on above: Order Comment: Speci men Type: BLOOD SPECIMENOrdering Facility: [facility] Address: [address] [place] [address] Performed By: #### 5 7021-8 ####VILLARREAL LABORATORYCLIA [id number] [place] [address] [place] Differential cell count method Nom (Bld) Auto Normal [facility] Comment on above: Order Comment: Speci men Type: BLOOD SPECIMENOrdering Facility: [facility] Address: [address] [place] [address] Performed By: #### 5 7021-8 ####VILLARREAL LABORATORYCLIA [id number] [place] [id number] [place] Eosinophils (Bld) [#/Vol] 10*3/uL Normal <0.46 [facility] Comment on above: Order Comment: Speci men Type: BLOOD SPECIMENOrdering Facility: [facility] Address: [address] [place] [address] Performed By: #### 5 7021-8 ####VILLARREAL LABORATORYCLIA [id number] [place] [address] [place] Eosinophils/100 WBC (Bld) 0.1 % Normal [facility] Comment on above: Order Comment: Speci men Type: BLOOD SPECIMENOrdering Facility: [facility] Address: [facility] [place] [address] Performed By: #### 5 7021-8 ####VILLARREAL LABORATORYCLIA [id number] [place] [address] [place] Erythrocyte distribution width (RBC) [Ratio] 15.8 % High 11.5-15.0 [facility] Comment on above: Order Comment: Speci men Type: BLOOD SPECIMENOrdering Facility: [facility] Address: [address] [place] [address] Performed By: #### 5 7021-8 ####VILLARREAL LABORATORYCLIA [id number] [place] [address] [place] Hematocrit (Bld) [Volume fraction] 25.9 % Low 36.0-46.0 [facility] Comment on above: Order Comment: Speci men Type: BLOOD SPECIMENOrdering Facility: [facility] Address: [address] [place] [address] Performed By: #### 5 7021-8 ####VILLARREAL LABORATORYCLIA [id number] [place] [address] [place] Hemoglobin (Bld) [Mass/Vol] 8.5 g/dL Low 11.5-15.5 [facility] Comment on above: Order Comment: Speci men Type: BLOOD SPECIMENOrdering Facility: [facility] Address: [address] [place] [address] Performed By: #### 5 7021-8 ####VILLARREAL LABORATORYCLIA [id number] [place] [address] [place] Immature granulocytes (Bld) [#/Vol] 0.27 10*3/uL High <0.10 [facility] Comment on above: Order Comment: Speci men Type: BLOOD SPECIMENOrdering Facility: [facility] Address: [address] [place] [address] Performed By: #### 5 7021-8 ####VILLARREAL LABORATORYCLIA [id number] [address] [place] Immature granulocytes/100 WBC (Bld) 1.3 % Normal [facility] Comment on above: Order Comment: Speci men Type: BLOOD SPECIMENOrdering Facility: [facility] Address: [address] [place] [address] Performed By: #### 5 7021-8 ####VILLARREAL LABORATORYCLIA [id number] [address] Lymphocytes (Bld) [#/Vol] 0.64 10*3/uL Low 1.00-4.00 [facility] Comment on above: Order Comment: Speci men Type: BLOOD SPECIMENOrdering Facility: [facility] Address: [address] [place] [address] Performed By: #### 5 7021-8 ####VILLARREAL LABORATORYCLIA [id number] [address] Lymphocytes/100 WBC (Bld) 3.1 % Normal [facility] Comment on above: Order Comment: Speci men Type: BLOOD SPECIMENOrdering Facility: [facility] Address: [address] [place] [address] Performed By: #### 5 7021-8 ####VILLARREAL LABORATORYCLIA [id number] [address] [place] MCH (RBC) [Entitic mass] 28.1 pg Normal 26.0-34.0 [facility] Comment on above: Order Comment: Speci men Type: BLOOD SPECIMENOrdering Facility: [facility] Address: [address] [place] [address] Performed By: #### 5 7021-8 ####VILLARREAL LABORATORYCLIA [id number] [address] MCHC (RBC) [Mass/Vol] 32.8 g/dL Normal 30.5-36.0 [facility] Comment on above: Order Comment: Speci men Type: BLOOD SPECIMENOrdering Facility: [facility] Address: [address] [place] [address] Performed By: #### 5 7021-8 ####VILLARREAL LABORATORYCLIA [id number] [place] [address] [place] MCV (RBC) [Entitic vol] 85.8 fL Normal 80.0-100.[address] [facility] Comment on above: Order Comment: Speci men Type: BLOOD SPECIMENOrdering Facility: [facility] Address: [address] [place] [address] Performed By: #### 5 7021-8 ####VILLARREAL LABORATORYCLIA [id number] [place] [address] [place] Monocytes (Bld) [#/Vol] 1.09 10*3/uL High <0.87 [facility] Comment on above: Order Comment: Speci men Type: BLOOD SPECIMENOrdering Facility: [facility] Address: [address] [place] [address] Performed By: #### 5 7021-8 ####VILLARREAL LABORATORYCLIA [id number] [address] [place] Monocytes/100 WBC (Bld) 5.3 % Normal [facility] Comment on above: Order Comment: Speci men Type: BLOOD SPECIMENOrdering Facility: [facility] Address: [address] [place] [address] Performed By: #### 5 7021-8 ####VILLARREAL LABORATORYCLIA [id number] [place] [address] [place] Neutrophils (Bld) [#/Vol] 18.59 10*3/uL High 1.45-7.50 [facility] Comment on above: Order Comment: Speci men Type: BLOOD SPECIMENOrdering Facility: [facility] Address: [address] [place] [address] Performed By: #### 5 7021-8 ####VILLARREAL LABORATORYCLIA [id number] [place] [address] [place] Neutrophils/100 WBC (Bld) 90.0 % Normal [facility] Comment on above: Order Comment: Speci men Type: BLOOD SPECIMENOrdering Facility: [facility] Address: [address] [place] [address] Performed By: #### 5 7021-8 ####VILLARREAL LABORATORYCLIA [id number] [place] [address] [place] Nucleated RBC (Bld) [#/Vol] 10*3/uL Normal <0.01 [facility] Comment on above: Order Comment: Speci men Type: BLOOD SPECIMENOrdering Facility: [facility] Address: [address] [place] [address] Performed By: #### 5 7021-8 ####VILLARREAL LABORATORYCLIA [id number] [place] [address] [place] Nucleated RBC/100 WBC (Bld) [Ratio] 0.0 /100 WBC Normal [facility] Comment on above: Order Comment: Speci men Type: BLOOD SPECIMENOrdering Facility: [facility] Address: [address] [place] [address] Performed By: #### 5 7021-8 ####VILLARREAL LABORATORYCLIA [id number] [place] [address] [place] Platelet mean volume (Bld) [Entitic vol] 8.7 fL Low 9.0-12.7 [facility] Comment on above: Order Comment: Speci men Type: BLOOD SPECIMENOrdering Facility: [facility] Address: [address] [place] [address] Performed By: #### 5 7021-8 ####VILLARREAL LABORATORYCLIA [id number] [place] [address] [place] Platelets (Bld) [#/Vol] 518 10*3/uL High 150-400 [facility] Comment on above: Order Comment: Speci men Type: BLOOD SPECIMENOrdering Facility: [facility] Address: [address] [place] [address] Performed By: #### 5 7021-8 ####VILLARREAL LABORATORYCLIA [id number] [place] [address] [place] RBC (Bld) [#/Vol] 3.02 10*6/uL Low 3.90-5.20 [facility] Comment on above: Order Comment: Speci men Type: BLOOD SPECIMENOrdering Facility: [facility] Address: [facility] [place] [address] Performed By: #### 5 7021-8 ####MASON LABORATORYCLIA [id number] [place] [address] [place] WBC (Bld) [#/Vol] 20.66 10*3/uL High 3.70-11.[address] [facility] Comment on above: Order Comment: Speci men Type: BLOOD SPECIMENOrdering Facility: [facility] Address: [address] [place] [address] Performed By: #### 5 7021-8 ####MASON LABORATORYCLIA [id number] [place] [address] [place] CBC W Ordered Manual Differe ntial panel (Bld)on 12-04-2024 Basophils (Bld) [#/Vol] 0.03 10*3/uL Normal <0.11 [facility] Comment on above: Order Comment: Speci men Type: BLOOD SPECIMENOrdering Facility: [facility] Address: [address] [place] [address] Performed By: #### S TFREV ####[facility] LABCLIA [id number] [place] [address] [place]#### 79579-6 ####MASON LABORATORYCLIA [id number] [address] [place] [facility] Basophils/100 WBC (Bld) 0.2 % Normal [facility] Comment on above: Order Comment: Speci men Type: BLOOD SPECIMENOrdering Facility: [facility] Address: [address] [place] [address] Performed By: #### S TFREV ####[facility] LABCLIA [id number] [place] [address] [place]#### 43763-5 ####MASON LABORATORYCLIA [id number] [address] STATES OF [facility] Differential cell count method Nom (Bld) Auto Normal [facility] Comment on above: Order Comment: Speci men Type: BLOOD SPECIMENOrdering Facility: [facility] Address: [address] [place] [address] Performed By: #### S TFREV ####[facility] LABCLIA [id number] [place] [address] [place]#### 72102-7 ####VILLARREAL LABORATORYCLIA [id number] [place] [address] [place] Eosinophils (Bld) [#/Vol] 10*3/uL Normal <0.46 [facility] Comment on above: Order Comment: Speci men Type: BLOOD SPECIMENOrdering Facility: [facility] Address: [address] [place] [address] Performed By: #### S TFREV ####[facility] LABCLIA [id number] [place] [address] [place]#### 52259-6 ####VILLARREAL LABORATORYCLIA [id number] [place] [address] [place] Eosinophils/100 WBC (Bld) 0.1 % Normal [facility] Comment on above: Order Comment: Speci men Type: BLOOD SPECIMENOrdering Facility: [facility] Address: [address] [place] [address] Performed By: #### S TFREV ####[facility] LABCLIA [id number] [place] [address] [place]#### 13128-9 ####VILLARREAL LABORATORYCLIA [id number] [place] [address] [place] Erythrocyte distribution width (RBC) [Ratio] 15.9 % High 11.5-15.0 [facility] Comment on above: Order Comment: Speci men Type: BLOOD SPECIMENOrdering Facility: [facility] Address: [facility] [place] [address] Performed By: #### S TFREV ####[facility] LABCLIA [id number] [place] [address] [place]#### 42878-7 ####VILLARREAL LABORATORYCLIA [id number] [address] [place] Hematocrit (Bld) [Volume fraction] 26.2 % Low 36.0-46.0 [facility] Comment on above: Order Comment: Speci men Type: BLOOD SPECIMENOrdering Facility: [facility] Address: [address] [place] [address] Performed By: #### S TFREV ####[facility] LABCLIA [id number] [place] [address] [place]#### 16740-0 ####VILLARREAL LABORATORYCLIA [id number] [place] [address] [place] Hemoglobin (Bld) [Mass/Vol] 8.7 g/dL Low 11.5-15.5 [facility] Comment on above: Order Comment: Speci men Type: BLOOD SPECIMENOrdering Facility: [facility] Address: [address] [place] [address] Performed By: #### S TFREV ####[facility] LABCLIA [id number] [address] [place]#### 16813-2 ####VILLARREAL LABORATORYCLIA [id number] [address] [place] Immature granulocytes (Bld) [#/Vol] 0.20 10*3/uL High <0.10 [facility] Comment on above: Order Comment: Speci men Type: BLOOD SPECIMENOrdering Facility: [facility] Address: [address] [place] [address] Performed By: #### S TFREV ####[facility] LABCLIA [id number] [place] [address] [place]#### [id number] ####[facility] LABORATORYCLIA [id number] [address] [place] Immature granulocytes/100 WBC (Bld) 1.3 % Normal [facility] Comment on above: Order Comment: Speci men Type: BLOOD SPECIMENOrdering Facility: [facility] [facility]OSP[facility] Address: [address] [place] [address] Performed By: #### S TFREV ####[facility] LABCLIA [id number] [place] [address] [place]#### 71476-2 ####[facility] LABORATORYCLIA [id number] [address] [place] Lymphocytes (Bld) [#/Vol] 0.56 10*3/uL Low 1.00-4.00 [facility] Comment on above: Order Comment: Speci men Type: BLOOD SPECIMENOrdering Facility: [facility] Address: [address] [place] [address] Performed By: #### S TFREV ####[facility] LABCLIA [id number] [address] [place]#### 85298-5 ####[facility] LABORATORYCLIA [id number] [address] [place] Lymphocytes/100 WBC (Bld) 3.5 % Normal [facility] Comment on above: Order Comment: Speci men Type: BLOOD SPECIMENOrdering Facility: [facility] Address: [address] [place] [address] Performed By: #### S TFREV ####[facility] LABCLIA [id number] [place] [address] [place]#### 31382-6 ####[facility] LABORATORYCLIA [id number] [place] [address] [place] MCH (RBC) [Entitic mass] 28.3 pg Normal 26.0-34.0 [facility] Comment on above: Order Comment: Speci men Type: BLOOD SPECIMENOrdering Facility: [facility] Address: [address] [place] [address] Performed By: #### S TFREV ####[facility] LABCLIA [id number] [place] [address] [place]#### 64063-8 ####[facility] LABORATORYCLIA [id number] [place] [address] [place] MCHC (RBC) [Mass/Vol] 33.2 g/dL Normal 30.5-36.0 [facility] Comment on above: Order Comment: Speci men Type: BLOOD SPECIMENOrdering Facility: [facility] Address: [address] [place] [address] Performed By: #### S TFREV ####[facility] LABCLIA [id number] [address] [place]#### 69229-4 ####[facility] LABORATORYCLIA [id number] [address] [place] MCV (RBC) [Entitic vol] 85.3 fL Normal 80.0-100.[address] [facility] Comment on above: Order Comment: Speci men Type: BLOOD SPECIMENOrdering Facility: [facility] Address: [address] [place] [address] Performed By: #### S TFREV ####[facility] LABCLIA [id number] [address] [place]#### 33159-1 ####[facility] LABORATORYCLIA [id number] [address] [place] Monocytes (Bld) [#/Vol] 0.74 10*3/uL Normal <0.87 [facility] Comment on above: Order Comment: Speci men Type: BLOOD SPECIMENOrdering Facility: [facility] Address: [address] [place] [address] Performed By: #### S TFREV ####[facility] LABCLIA [id number] [place] [address] [facility] [place]#### 58032-0 ####[facility] LABORATORYCLIA [id number] [address] Monocytes/100 WBC (Bld) 4.6 % Normal [facility] Comment on above: Order Comment: Speci men Type: BLOOD SPECIMENOrdering Facility: [facility] Address: [address] [place] [address] Performed By: #### S TFREV ####[facility] LABCLIA [id number] [place] [address] [place]#### 37765-7 ####[facility] LABORATORYCLIA [id number] [place] [address] [place] Neutrophils (Bld) [#/Vol] 14.38 10*3/uL High 1.45-7.50 [facility] Comment on above: Order Comment: Speci men Type: BLOOD SPECIMENOrdering Facility: [facility] Address: [address] [place] [address] Performed By: #### S TFREV ####[facility] LABCLIA [id number] [place] [address] [place]#### 75745-2 ####[facility] LABORATORYCLIA [id number] [place] [address] [place] Neutrophils/100 WBC (Bld) 90.3 % Normal [facility] Comment on above: Order Comment: Speci men Type: BLOOD SPECIMENOrdering Facility: [facility] Address: [address] [place] [address] Performed By: #### S TFREV ####[facility] LABCLIA [id number] [place] [address] [place]#### 64165-1 ####[facility] LABORATORYCLIA [id number] [place] [address] [place] Nucleated RBC (Bld) [#/Vol] 10*3/uL Normal <0.01 [facility] Comment on above: Order Comment: Speci men Type: BLOOD SPECIMENOrdering Facility: [facility] Address: [address] [place] [address] Performed By: #### S TFREV ####[facility] LABCLIA [id number] [place] AV[address]#### 59382-9 ####[facility] LABORATORYCLIA [id number] [address] Nucleated RBC/100 WBC (Bld) [Ratio] 0.0 /100 WBC Normal [facility] Comment on above: Order Comment: Speci men Type: BLOOD SPECIMENOrdering Facility: [facility] Address: [address] [place] [address] Performed By: #### S TFREV ####[facility] LABCLIA [id number] [address] [place]#### 29132-8 ####[facility] LABORATORYCLIA [id number] [address] [place] [facility] Platelet mean volume (Bld) [Entitic vol] 8.8 fL Low 9.0-12.7 [facility] Comment on above: Order Comment: Speci men Type: BLOOD SPECIMENOrdering Facility: [facility] Address: [address] [place] [address] Performed By: #### S TFREV ####[facility] LABCLIA [id number] [address] [place]#### 40547-2 ####[facility] LABORATORYCLIA [id number] [address] [place] Platelets (Bld) [#/Vol] 512 10*3/uL High 150-400 [facility] Comment on above: Order Comment: Speci men Type: BLOOD SPECIMENOrdering Facility: [facility] Address: [address] [place] [address] Performed By: #### S TFREV ####[facility] LABCLIA [id number] [place] [address] [facility] [place]#### 37630-1 ####[facility] LABORATORYCLIA [id number] [address] [place] RBC (Bld) [#/Vol] 3.07 10*6/uL Low 3.90-5.20 [facility] Comment on above: Order Comment: Speci men Type: BLOOD SPECIMENOrdering Facility: [facility] Address: [address] [place] [address] Performed By: #### S TFREV ####[facility] LABCLIA [id number] [place] [address] [place]#### 99528-6 ####[facility] LABORATORYCLIA [id number] [place] [address] [place] WBC (Bld) [#/Vol] 15.92 10*3/uL High 3.70-11.[address] [facility] Comment on above: Order Comment: Speci men Type: BLOOD SPECIMENOrdering Facility: [facility] Address: [address] [place] [address] Performed By: #### S TFREV ####[facility] LABCLIA [id number] [place] [address] [place]#### 54988-0 ####[facility] LABORATORYCLIA [id number] [place] [address] [place] CONSULTon 12-04-2024 CONSULT Normal [facility] CONSULT PROGon 12-04-2024 CONSULT PROG Normal [facility] CONSULT PROG Normal [facility] metabolic 2000 panelon 12-04-2024 Albumin [Mass/Vol] 2.5 g/dL Low 3.9-4.9 [facility] Comment on above: Order Comment: Speci men Type: BLOOD SPECIMENOrdering Facility: [facility] Address: [address] [place] [address] Performed By: #### 2 4323-8, 13591-8, 2951-2 ####[facility] LABORATORYCLIA [id number] [place] [address] [place] ALP [Catalytic activity/Vol] 112 U/L Normal 34-123 [facility] Comment on above: Order Comment: Speci men Type: BLOOD SPECIMENOrdering Facility: [facility] Address: [address] [place] [address] Performed By: #### 2 4323-8, 69641-8, 2950-2 ####[facility] LABORATORYCLIA [id number] [place] [address] [place] ALT [Catalytic activity/Vol] U/L Low 7-38 [facility] Comment on above: Order Comment: Speci men Type: BLOOD SPECIMENOrdering Facility: [facility] Address: [address] [place] [address] Performed By: #### 2 4323-8, 48832-6, 2950-2 ####[facility] LABORATORYCLIA [id number] [place] [address] [place] Anion gap [Moles/Vol] 10 mmol/L Normal 8-15 [facility] Comment on above: Order Comment: Speci men Type: BLOOD SPECIMENOrdering Facility: [facility] Address: [address] [place] [address] Performed By: #### 2 4322-8, , 2950-2 ####[facility] LABORATORYCLIA [id number] [place] [address] [place] AST [Catalytic activity/Vol] 31 U/L Normal 13-35 [facility] Comment on above: Order Comment: Speci men Type: BLOOD SPECIMENOrdering Facility: [facility] Address: [address] [place] [address] Performed By: #### 2 4323-8, , 2950-2 ####[facility] LABORATORYCLIA [id number] [place] [id number] [place] Bilirubin [Mass/Vol] mg/dL Low 0.2-1.[address] [facility] Comment on above: Order Comment: Speci men Type: BLOOD SPECIMENOrdering Facility: [facility] Address: [address] [place] [address] Performed By: #### 2 4323-8, 92411-4, 2950-2 ####[facility] LABORATORYCLIA [id number] [place] [address] [place] Calcium [Mass/Vol] 9.7 mg/dL Normal 8.5-10.2 [facility] Comment on above: Order Comment: Speci men Type: BLOOD SPECIMENOrdering Facility: [facility] Address: [address] [place] [address] Performed By: #### 2 4323-8, 57624-4, 2950-2 ####[facility] LABORATORYCLIA [id number] [place] [address] [place] Chloride [Moles/Vol] 95 mmol/L Low 98-[address] [facility] Comment on above: Order Comment: Speci men Type: BLOOD SPECIMENOrdering Facility: [facility] Address: [address] [place] [address] Performed By: #### 2 4323-8, , 2 ####[facility] LABORATORYCLIA [id number] [place] [address] [place] CO2 [Moles/Vol] 27 mmol/L Normal 22-30 [facility] Comment on above: Order Comment: Speci men Type: BLOOD SPECIMENOrdering Facility: [facility] Address: [address] [place] [address] Performed By: #### 2 4323-8, , 2 ####[facility] LABORATORYCLIA [id number] [place] [address] [place] Creatinine [Mass/Vol] 0.84 mg/dL Normal 0.58-0.96 [facility] Comment on above: Order Comment: Speci men Type: BLOOD SPECIMENOrdering Facility: [facility] Address: [address] [place] [address] Performed By: #### 2 4323-8, , 2 ####[facility] LABORATORYCLIA [id number] [place] [id number] [facility] [place] Creatinine and Glomerular filtration rate.predicted panel (S/P/Bld) 67 mL/min/1.73m??? Normal >=60 [facility] Comment on above: Order Comment: Speci men Type: BLOOD SPECIMENOrdering Facility: [facility] Address: [address] [place] [address] Result Comment: Hilda mated Glomerular Filtration Rate [...] Performed By: #### 2 4323-8, , 2950- ####[facility] LABORATORYCLIA [id number] [place] [address] [place] Glucose [Mass/Vol] 60 mg/dL Low 74-99 [facility] Comment on above: Order Comment: Fan meade Type: BLOOD SPECIMENOrdering Facility: [facility] Address: [address] [place] [address] Result Comment: The [employer] (ADA) provides guidance for cutoff [...] Standards of Medical Care in Diabetes 2016, [employer]. Diabetes Care. 2016.39(Suppl 1). Performed By: #### 2 4323-8, , 2950-12 ####[facility] LABORATORYCLIA [id number] [place] [address] [place] Potassium [Moles/Vol] 4.6 mmol/L Normal 3.7-5.1 [facility] Comment on above: Order Comment: Fan meade Type: BLOOD SPECIMENOrdering Facility: [facility] Address: [address] [place] [address] Performed By: #### 2 4323-8, , 2950-2 ####[facility] LABORATORYCLIA [id number] [place] [address] [place] Protein [Mass/Vol] 5.9 g/dL Low 6.3-8.0 [facility] Comment on above: Order Comment: Speci men Type: BLOOD SPECIMENOrdering Facility: [facility] Address: [address] [place] [address] [place] [address] Performed By: #### 2 4323-8, 15358-3, 2950-2 ####[facility] LABORATORYCLIA [id number] [place] [address] [place] Urea nitrogen [Mass/Vol] 37 mg/dL High 06-03 [facility] Comment on above: Order Comment: Speci men Type: BLOOD SPECIMENOrdering Facility: [facility] Address: [address] [place] [address] Performed By: #### 2 4323-8, , 2950-12 ####[facility] LABORATORYCLIA [id number] [place] [address] [place] Creatinine Unsp time (U) [Ma ss/Vol]on 12-04-2024 Creatinine (U) [Mass/Vol] 41.7 mg/dL Normal 20.0-300.0 [facility] Comment on above: Order Comment: Speci men Type: URINE SPECIMENOrdering Facility: [facility] Address: [address] [place] [address] Performed By: #### 3 5678-2, 96882-9, 25044-3 ####[facility] LABCLIA [id number] [facility] [id number] [address] [place] Magnesium SerPl-mCncon 12-04 Magnesium [Mass/Vol] 2.0 mg/dL Normal 1.7-2.[address] [facility] Comment on above: Order Comment: Speci men Type: BLOOD SPECIMENOrdering Facility: [facility] Address: [address] [place] [address] [place] [address] Performed By: #### 2 4323-8, 85744-2, 2 ####[facility] LABORATORYCLIA [id number] [place] [address] [place] NUTRITIONon 12-04-2024 NUTRITION Normal [facility] Osmolality Uron 12-04-2024 Osmolality (U) [Osmolality] 412 mosm/kg Normal 50-1200 [facility] Comment on above: Order Comment: Speci men Type: URINE SPECIMENOrdering Facility: [facility] Address: [address] [place] [address] Performed By: #### 2 695-5 ####[facility] LABCLIA [id number] [address] PATHOLOGIST INTERPRETATION C BC/DIFFon 12-04-2024 [employer] review Mckay (Unsp spec) [Interp] No review performed. Normal [facility] Comment on above: Order Comment: Speci men Type: BLOOD SPECIMENOrdering Facility: [facility] Address: [address] [place] [address] Performed By: #### S TFREV ####[facility] LABCLIA [id number] [address] [place]#### 54027-1 ####[facility] LABORATORYCLIA [id number] [address] [place] STAFF REVIEW, CBCDIF Normal [facility] Comment on above: Order Comment: Speci men Type: BLOOD SPECIMENOrdering Facility: [facility] Address: [address] [place] [address] Performed By: #### S TFREV ####[facility] LABCLIA [id number] [address] [place]#### 78712-6 ####[facility] LABORATORYCLIA [id number] [place] [address] [place] PT panel Coag (PPP)on 2024 INR Coag (PPP) [Relative time] 1.0 {INR} Normal 0.9-1.3 [facility] Comment on above: Order Comment: Speci men Type: BLOOD SPECIMENOrdering Facility: [facility] Address: [address] [place] [address] Result Comment: Kendra min K Antagonist (VKA) Therapeutic Range: INR 2 to 3 (Target INR of 2.5)Note: For patients treated with VKA drugs, such as warfarin, the [employer] 2012 Guideline recommends [...] al. Chest 2012, 141:7S-47SNishimura RA, et al. [facility] 2017, 70: 252-289 Performed By: #### 3 4528-0 ####[facility] LABORATORYCLIA [id number] [place] [address] [place] PT Coag (PPP) [Time] 10.6 s Normal 9.7-13.[address] [facility] Comment on above: Order Comment: Speci men Type: BLOOD SPECIMENOrdering Facility: [facility] Address: [address] [place] [address] Performed By: #### 3 4528-0 ####[facility] LABORATORYCLIA [id number] [place] [address] [place] Potassium ?Tm Ur-sCncon 11-15 Potassium Unsp time (U) [Moles/Vol] 41.7 mmol/L Normal 10.0-160.0 [facility] Comment on above: Order Comment: Speci men Type: URINE SPECIMENOrdering Facility: [facility] Address: [address] [place] [address] Performed By: #### 3 5678-2, 92012-0, 99871-6 ####[facility] LABCLIA [id number] [facility] [id number] [address] [place] Sodium ?Tm Ur-sCncon 025 Sodium Unsp time (U) [Moles/Vol] <20 Normal 14-216 [facility] Comment on above: Order Comment: Speci men Type: URINE SPECIMENOrdering Facility: [facility] Address: [address] [place] [address] Performed By: #### 3 5678-2, 94569-7, 28781-2 ####[facility] LABCLIA [id number] [facility] [id number] [place] [address] [place] Sodium SerPl-sCncon 12-04-19 25 Sodium [Moles/Vol] 128 mmol/L Low 136-144 [facility] Comment on above: Order Comment: Speci men Type: BLOOD SPECIMENOrdering Facility: [facility] Address: [address] [place] [address] Performed By: #### 2 951-2 ####[facility] LABORATORYCLIA [id number] [place] [address] [place] Sodium [Moles/Vol] 133 mmol/L Low 136-144 [facility] Comment on above: Order Comment: Speci men Type: BLOOD SPECIMENOrdering Facility: [facility] Address: [address] [place] [address] Performed By: #### 2 951-2 ####[facility] LABORATORYCLIA [id number] [place] [address] [place] Sodium [Moles/Vol] 130 mmol/L Low 136-144 [facility] Comment on above: Order Comment: Speci men Type: BLOOD SPECIMENOrdering Facility: [facility] Address: [address] [place] [address] Performed By: #### 2 951-2 ####[facility] LABORATORYCLIA [id number] [place] [address] [place] Sodium [Moles/Vol] 132 mmol/L Low 136-144 [facility] Comment on above: Order Comment: Speci men Type: BLOOD SPECIMENOrdering Facility: [facility] Address: [address] [place] [address] Performed By: #### 2 4323-8, 83670-0, 2951-2 ####[facility] LABORATORYCLIA [id number] [place] [address] [place] Sodium [Moles/Vol] 132 mmol/L Low 136-144 [facility] Comment on above: Order Comment: Fan meade Type: BLOOD SPECIMENOrdering Facility: [facility] Address: [address] [place] [address] Performed By: #### 2 951-2 ####[facility] LABORATORYCLIA [id number] [place] [address] [place] THERAPY NTon 12-04-2024 THERAPY NT Normal [facility] ALLIED HEALTHon 12-03-2024 ALLIED HEALTH [facility] RUBEN BY IFA SCREENon 12-03-19 Nuclear Ab pattern (S) [Interp] Nuclear homogeneous Normal [facility] Comment on above: Order Comment: Fan meade Type: BLOOD SPECIMENOrdering Facility: [facility] Address: [address] [place] [address] Performed By: #### A NAIFS ####[facility] LABCLIA [id number] [place] [address] [place] Nuclear Ab Ql (S) Positive Abnormal Negative [facility] Comment on above: Order Comment: Fan meade Type: BLOOD SPECIMENOrdering Facility: [facility] Address: [address] [place] [address] Result Comment: Anti -nuclear antibody test is used as an aid in diagnosis of systemic autoimmune diseases. Where positive and clinically warranted, follow-up using disease-specific testing is recommended. Low positive titers are not uncommon with advanced age, certain chronic infections, and malignancies among others.Test methodology: Indirect fluorescence immunoassay (IFA) using HEp-2 cells.1:160 Performed By: #### A NAIFS ####[facility] LABCLIA [id number] [place] [address] [place] CASE MANAGEMon 12-03-2024 CASE MANAGEM [facility] CBC W Auto Differential pane l (Bld)on 12-03-2024 Basophils (Bld) [#/Vol] 0.06 10*3/uL Normal <0.11 [facility] Comment on above: Order Comment: Fan meade Type: BLOOD SPECIMENOrdering Facility: [facility] Address: [address] [place] [address] Performed By: #### 5 7021-8 ####[facility] LABORATORYCLIA [id number] [place] [address] [place] Basophils/100 WBC (Bld) 0.3 % Normal [facility] Comment on above: Order Comment: Speci men Type: BLOOD SPECIMENOrdering Facility: [facility] Address: [address] [place] [address] Performed By: #### 5 7021-8 ####[facility] LABORATORYCLIA [id number] [place] [address] [place] Differential cell count method Nom (Bld) Auto Normal [facility] Comment on above: Order Comment: Speci men Type: BLOOD SPECIMENOrdering Facility: [facility] Address: [address] [place] [address] Performed By: #### 5 7021-8 ####[facility] LABORATORYCLIA [id number] [place] [address] [place] Eosinophils (Bld) [#/Vol] 0.18 10*3/uL Normal <0.46 [facility] Comment on above: Order Comment: Speci men Type: BLOOD SPECIMENOrdering Facility: [facility] Address: [address] [place] [address] Performed By: #### 5 7021-8 ####[facility] LABORATORYCLIA [id number] [address] [place] Eosinophils/100 WBC (Bld) 0.9 % Normal [facility] Comment on above: Order Comment: Speci men Type: BLOOD SPECIMENOrdering Facility: [facility] Address: [address] [place] [address] Performed By: #### 5 7021-8 ####[facility] LABORATORYCLIA [id number] [place] [address] [place] Erythrocyte distribution width (RBC) [Ratio] 15.6 % High 11.5-15.0 [facility] Comment on above: Order Comment: Speci men Type: BLOOD SPECIMENOrdering Facility: [facility] Address: [address] [place] [address] Performed By: #### 5 7021-8 ####[facility] LABORATORYCLIA [id number] [address] [place] Hematocrit (Bld) [Volume fraction] 26.0 % Low 36.0-46.0 [facility] Comment on above: Order Comment: Speci men Type: BLOOD SPECIMENOrdering Facility: [facility] Address: [address] [place] [address] Performed By: #### 5 7021-8 ####[facility] LABORATORYCLIA [id number] [place] [address] [place] Hemoglobin (Bld) [Mass/Vol] 8.5 g/dL Low 11.5-15.5 [facility] Comment on above: Order Comment: Speci men Type: BLOOD SPECIMENOrdering Facility: [facility] Address: [address] [place] [address] Performed By: #### 5 7021-8 ####[facility] LABORATORYCLIA [id number] [place] [address] [place] Immature granulocytes (Bld) [#/Vol] 0.29 10*3/uL High <0.10 [facility] Comment on above: Order Comment: Speci men Type: BLOOD SPECIMENOrdering Facility: [facility] Address: [address] [place] [address] Performed By: #### 5 7021-8 ####[facility] LABORATORYCLIA [id number] [address] [place] Immature granulocytes/100 WBC (Bld) 1.5 % Normal [facility] Comment on above: Order Comment: Speci men Type: BLOOD SPECIMENOrdering Facility: [facility] Address: [address] [place] [address] Performed By: #### 5 7021-8 ####[facility] LABORATORYCLIA [id number] [place] [address] [facility] [place] Lymphocytes (Bld) [#/Vol] 0.75 10*3/uL Low 1.00-4.00 [facility] Comment on above: Order Comment: Speci men Type: BLOOD SPECIMENOrdering Facility: [facility] Address: [address] [place] [address] Performed By: #### 5 7021-8 ####VILLARREAL LABORATORYCLIA [id number] [address] Lymphocytes/100 WBC (Bld) 3.8 % Normal [facility] Comment on above: Order Comment: Speci men Type: BLOOD SPECIMENOrdering Facility: [facility] Address: [address] [place] [address] Performed By: #### 5 7021-8 ####[facility] LABORATORYCLIA [id number] [address] MCH (RBC) [Entitic mass] 28.5 pg Normal 26.0-34.0 [facility] Comment on above: Order Comment: Speci men Type: BLOOD SPECIMENOrdering Facility: [facility] Address: [address] [place] [address] Performed By: #### 5 7021-8 ####VILLARREAL LABORATORYCLIA [id number] [address] MCHC (RBC) [Mass/Vol] 32.7 g/dL Normal 30.5-36.0 [facility] Comment on above: Order Comment: Speci men Type: BLOOD SPECIMENOrdering Facility: [facility] Address: [address] [place] [address] Performed By: #### 5 7021-8 ####VILLARREAL LABORATORYCLIA [id number] [address] MCV (RBC) [Entitic vol] 87.2 fL Normal 80.0-100.[address] [facility] Comment on above: Order Comment: Speci men Type: BLOOD SPECIMENOrdering Facility: [facility] Address: [address] [place] [address] Performed By: #### 5 7021-8 ####VILLARREAL LABORATORYCLIA [id number] [address] Monocytes (Bld) [#/Vol] 0.93 10*3/uL High <0.87 [facility] Comment on above: Order Comment: Speci men Type: BLOOD SPECIMENOrdering Facility: [facility] Address: [address] [place] [address] Performed By: #### 5 7021-8 ####VILLARREAL LABORATORYCLIA [id number] [place] [address] [place] Monocytes/100 WBC (Bld) 4.7 % Normal [facility] Comment on above: Order Comment: Speci men Type: BLOOD SPECIMENOrdering Facility: [facility] Address: [address] [place] [address] Performed By: #### 5 7021-8 ####VILLARREAL LABORATORYCLIA [id number] [place] [address] [place] Neutrophils (Bld) [#/Vol] 17.78 10*3/uL High 1.45-7.50 [facility] Comment on above: Order Comment: Speci men Type: BLOOD SPECIMENOrdering Facility: [facility] Address: [address] [place] [address] Performed By: #### 5 7021-8 ####VILLARREAL LABORATORYCLIA [id number] [place] [address] [place] Neutrophils/100 WBC (Bld) 88.8 % Normal [facility] Comment on above: Order Comment: Speci men Type: BLOOD SPECIMENOrdering Facility: [facility] Address: [address] [place] [address] Performed By: #### 5 7021-8 ####VILLARREAL LABORATORYCLIA [id number] [place] [address] [place] Nucleated RBC (Bld) [#/Vol] 10*3/uL Normal <0.01 [facility] Comment on above: Order Comment: Speci men Type: BLOOD SPECIMENOrdering Facility: [facility] Address: [address] [place] [address] Performed By: #### 5 7021-8 ####VILLARREAL LABORATORYCLIA [id number] [place] [address] [place] Nucleated RBC/100 WBC (Bld) [Ratio] 0.0 /100 WBC Normal [facility] Comment on above: Order Comment: Speci men Type: BLOOD SPECIMENOrdering Facility: [facility] Address: [address] [place] [address] Performed By: #### 5 7021-8 ####VILLARREAL LABORATORYCLIA [id number] [place] [id number] [place] Platelet mean volume (Bld) [Entitic vol] 8.6 fL Low 9.0-12.7 [facility] Comment on above: Order Comment: Speci men Type: BLOOD SPECIMENOrdering Facility: [facility] Address: [address] [place] [address] Performed By: #### 5 7021-8 ####VILLARREAL LABORATORYCLIA [id number] [place] [id number] [place] Platelets (Bld) [#/Vol] 442 10*3/uL High 150-400 [facility] Comment on above: Order Comment: Speci men Type: BLOOD SPECIMENOrdering Facility: [facility] Address: [address] [place] [address] Performed By: #### 5 7021-8 ####VILLARREAL LABORATORYCLIA [id number] [place] [address] [place] RBC (Bld) [#/Vol] 2.98 10*6/uL Low 3.90-5.20 [facility] Comment on above: Order Comment: Speci men Type: BLOOD SPECIMENOrdering Facility: [facility] Address: [facility] [place] [address] Performed By: #### 5 7021-8 ####VILLARREAL LABORATORYCLIA [id number] [place] [id number] [place] WBC (Bld) [#/Vol] 19.99 10*3/uL High 3.70-11.[address] [facility] Comment on above: Order Comment: Speci men Type: BLOOD SPECIMENOrdering Facility: [facility] Address: [facility] [place] [address] Performed By: #### 5 7021-8 ####VILLARREAL LABORATORYCLIA [id number] [place] [address] [place] CONSULTon 12-03-2024 CONSULT Normal [facility] CONSULT Normal [facility] CONSULT PROGon 12-03-2024 CONSULT PROG Normal [facility] CONSULT PROG Normal [facility] CONSULT PROG Normal [facility] CRP SerPl-mCncon 12-03-2024 CRP [Mass/Vol] 20.0 mg/dL High <0.9 [facility] Comment on above: Order Comment: Speci men Type: BLOOD SPECIMENOrdering Facility: [facility] Address: [address] [place] [address] Performed By: #### 1 988-5, 03515-3, ####[facility] LABORATORYCLIA [id number] [place] [address] [place] CHEST WO IVCONon 12-03-19 CT CHEST WO IVCON Invalid Interpretation Code [facility] Comprehensive metabolic 2000 panelon 12-03-2024 Albumin [Mass/Vol] 2.5 g/dL Low 3.9-4.9 [facility] Comment on above: Order Comment: Speci men Type: BLOOD SPECIMENOrdering Facility: [facility] Address: [address] [place] [address] Performed By: #### 1 988-5, 02976-9, 43695-0 ####M[facility]ON LABORATORYCLIA [id number] [place] [address] [place] ALP [Catalytic activity/Vol] 93 U/L Normal 34-123 [facility] Comment on above: Order Comment: Speci men Type: BLOOD SPECIMENOrdering Facility: [facility] Address: [address] [place] [address] Performed By: #### 1 988-5, 83007-7, 92865-4 ####VILLARREAL LABORATORYCLIA [id number] [place] [address] [place] ALT [Catalytic activity/Vol] U/L Low 7-38 [facility] Comment on above: Order Comment: Speci men Type: BLOOD SPECIMENOrdering Facility: [facility] Address: [address] [place] [address] Performed By: #### 1 988-5, 61269-6, 54648-9 ####VILLARREAL LABORATORYCLIA [id number] [address] [place] Anion gap [Moles/Vol] 10 mmol/L Normal 8-15 [facility] Comment on above: Order Comment: Speci men Type: BLOOD SPECIMENOrdering Facility: [facility] Address: [address] [place] [address] Performed By: #### 1 988-5, 39609-4, ####VILLARREAL LABORATORYCLIA [id number] [place] [address] [place] AST [Catalytic activity/Vol] 15 U/L Normal 13-35 [facility] Comment on above: Order Comment: Speci men Type: BLOOD SPECIMENOrdering Facility: [facility] Address: [facility] [place] [address] Performed By: #### 1 988-5, , ####VILLARREAL LABORATORYCLIA [id number] [address] [place] Bilirubin [Mass/Vol] 0.2 mg/dL Normal 0.2-1.[address] [facility] Comment on above: Order Comment: Speci men Type: BLOOD SPECIMENOrdering Facility: [facility] Address: [address] [place] [address] Performed By: #### 1 988-5, , ####VILLARREAL LABORATORYCLIA [id number] [address] [facility] Calcium [Mass/Vol] 9.2 mg/dL Normal 8.5-10.2 [facility] Comment on above: Order Comment: Speci men Type: BLOOD SPECIMENOrdering Facility: [facility] Address: [address] [place] [address] Performed By: #### 1 988-5, , ####VILLARREAL LABORATORYCLIA [id number] [address] [place] Chloride [Moles/Vol] 94 mmol/L Low 98-[address] [facility] Comment on above: Order Comment: Speci men Type: BLOOD SPECIMENOrdering Facility: [facility] Address: [address] [facility] [place] [address] Performed By: #### 1 988-5, 26250-2, ####VILLARREAL LABORATORYCLIA [id number] [place] [address] [place] CO2 [Moles/Vol] 24 mmol/L Normal 22-30 [facility] Comment on above: Order Comment: Speci men Type: BLOOD SPECIMENOrdering Facility: [facility] Address: [address] [place] [address] Performed By: #### 1 988-5, , ####VILLARREAL LABORATORYCLIA [id number] [place] [address] [place] Creatinine [Mass/Vol] 0.92 mg/dL Normal 0.58-0.96 [facility] Comment on above: Order Comment: Speci men Type: BLOOD SPECIMENOrdering Facility: [facility] Address: [address] [place] [address] Performed By: #### 1 988-5, , ####MASON LABORATORYCLIA [id number] [place] [address] [place] [facility] Creatinine and Glomerular filtration rate.predicted panel (S/P/Bld) 60 mL/min/1.73m??? Normal >=60 [facility] Comment on above: Order Comment: Speci men Type: BLOOD SPECIMENOrdering Facility: [facility] Address: [address] [place] [address] Result Comment: Hilda mated Glomerular Filtration Rate [...] actual GFR. Performed By: #### 1 988-5, 10108-3, 33003-4 ####VILLARREAL LABORATORYCLIA [id number] [place] [address] [place] Glucose [Mass/Vol] 246 mg/dL High 74-99 [facility] Comment on above: Order Comment: Speci men Type: BLOOD SPECIMENOrdering Facility: [facility] Address: [address] [place] [address] Result Comment: The [place] [employer] (ADA) provides guidance for cutoff [...] Standards of Medical Care in Diabetes 2016, [place] [employer]. Diabetes Care. 2016.39(Suppl 1). Performed By: #### 1 988-5, , ####VILLARREAL LABORATORYCLIA [id number] [place] [address] [place] Potassium [Moles/Vol] 4.6 mmol/L Normal 3.7-5.1 [facility] Comment on above: Order Comment: Fan meade Type: BLOOD SPECIMENOrdering Facility: [facility] Address: [address] [place] [address] Performed By: #### 1 988-5, , ####VILLARREAL LABORATORYCLIA [id number] [place] [address] [place] Protein [Mass/Vol] 5.7 g/dL Low 6.3-8.0 [facility] Comment on above: Order Comment: Fan meade Type: BLOOD SPECIMENOrdering Facility: [facility] Address: [address] [place] [address] Performed By: #### 1 988-5, , ####VILLARREAL LABORATORYCLIA [id number] [place] [id number] [place] Sodium [Moles/Vol] 128 mmol/L Low 136-144 [facility] Comment on above: Order Comment: Fan meade Type: BLOOD SPECIMENOrdering Facility: [facility] Address: [address] [place] [address] Performed By: #### 1 988-5, 73094-6, 61272-9 ####MASON LABORATORYCLIA [id number] [place] [address] [place] Urea nitrogen [Mass/Vol] 37 mg/dL High 7-21 [facility] Comment on above: Order Comment: Speci men Type: BLOOD SPECIMENOrdering Facility: [facility] Address: [address] [place] [address] Performed By: #### 1 988-5, 77604-2, ####VILLARREAL LABORATORYCLIA [id number] [place] [address] [place] Cyclic citrullinated peptide IgG Qnon 12-03-2024 CCP ANTIBODY IGG QUALITATIVE Negative Normal Negative [facility] Comment on above: Order Comment: Speci men Type: BLOOD SPECIMENOrdering Facility: [facility] Address: [address] [place] [address] Performed By: #### 3 3935-8 ####[facility] LABCLIA [id number] [place] [address] [place] ESR Westergren method (Bld) [Velocity]on 12-03-2024 ESR (Bld) [Velocity] 124 mm/h High 0-[address] [facility] Comment on above: Order Comment: Speci men Type: BLOOD SPECIMENOrdering Facility: [facility] Address: [address] [place] [address] Performed By: #### 4 537-7 ####[facility] LABCLIA [id number] [place] [id number] [place] Magnesium SerPl-mCncon 12-03 Magnesium [Mass/Vol] 1.8 mg/dL Normal 1.7-2.[address] [facility] Comment on above: Order Comment: Speci men Type: BLOOD SPECIMENOrdering Facility: [facility] Address: [address] [place] [address] Performed By: #### 1 988-5, 67170-0, ####VILLARREAL LABORATORYCLIA [id number] [place] [address] [place] Rheumatoid fact SerPl-aCncon 12-03-2024 Rheumatoid factor Qn 19 [IU]/mL High <[address] [facility] Comment on above: Order Comment: Speci men Type: BLOOD SPECIMENOrdering Facility: [facility] Address: [address] [place] [address] Performed By: #### 1 1572-5 ####[facility] LABCLIA [id number] [facility] [id number] [place], [place] [id number] [place] Sodium SerPl-sCncon 12-03-19 25 Sodium [Moles/Vol] 129 mmol/L Low 136-144 [facility] Comment on above: Order Comment: Speci men Type: BLOOD SPECIMENOrdering Facility: [facility] Address: [address] [place] [address] Performed By: #### 2 951-2 ####VILLARREAL LABORATORYCLIA [id number] [place] [address] [place] Sodium [Moles/Vol] 130 mmol/L Low 136-144 [facility] Comment on above: Order Comment: Speci men Type: BLOOD SPECIMENOrdering Facility: [facility] Address: [address] [place] [address] Performed By: #### 2 951-2 ####VILLARREAL LABORATORYCLIA [id number] [address] [place] Sodium [Moles/Vol] 128 mmol/L Low 136-144 [facility] Comment on above: Order Comment: Speci men Type: BLOOD SPECIMENOrdering Facility: [facility] Address: [address] [place] [address] Performed By: #### 2 951-2 ####VILLARREAL LABORATORYCLIA [id number] [place] [address] [place] THERAPY NTon 12-03-2024 THERAPY NT Normal [facility] THERAPY NT Normal [facility] THERAPY NT Normal [facility] cCP IgG SerPl-aCncon 025 Cyclic citrullinated peptide IgG Qn <15 Normal <20 [facility] Comment on above: Order Comment: Speci men Type: BLOOD SPECIMENOrdering Facility: [facility] Address: [address] [place] [address] Performed By: #### 3 3935-8 ####[facility] LABCLIA [id number] [place] [id number] [place] 25(OH)D3 SerPl-mCncon 2024 25-hydroxyvitamin D3 [Mass/Vol] 13.4 ng/mL Low 31.0-80.0 [facility] Comment on above: Order Comment: Speci men Type: BLOOD SPECIMENOrdering Facility: [facility] Address: [address] [place] [address] Result Comment: Clas sification of 25 [place] Vitamin D status:Deficiency/Insufficiency: < or = 30 ng/ml.Sufficiency/Optimal Levels: 31-80 ng/mLToxicity: > 100 ng/mL.Test performed by chemiluminescent immunoassay. Performed By: #### 1 989-3, 41229-3, 24701-9, [facility], 6969-0 ####[facility] LABCLIA [id number] [place] [address] [place] ALLIED HEALTHon 12-02-2024 [facility] Normal [facility] Normal [facility] ARTERIAL BLOOD GASESon 12-02 Base excess Calc (Bld) [Moles/Vol] 4 mmol/L High 0-2 [facility] Comment on above: Order Comment: Speci men Type: ARTERIAL BLOOD SPECIMENOrdering Facility: [facility] Address: [address] [place] [address] Performed By: #### A LLBG ####[facility] RESPIRATORYIA [id number] [facility] RESPIRATORY [id number] [place] [address] Carboxyhemoglobin (BldA) [Mass fraction] 1.4 % Normal 0.0-2.0 [facility] Comment on above: Order Comment: Speci men Type: ARTERIAL BLOOD SPECIMENOrdering Facility: [facility] Address: [address] [place] [address] Result Comment: Carb oxyhemoglobin Reference Range for Smokers: 2.0-8.0% Performed By: #### A LLBG ####[facility] [id number] [facility]OS[facility] RESPIRATORY [id number] [address] [address] CO2 (Bld) [Partial pressure] 41 mm Hg Normal 36-46 [facility] Comment on above: Order Comment: Speci men Type: ARTERIAL BLOOD SPECIMENOrdering Facility: [facility] Address: [address] [place] [address] Performed By: #### A LLBG ####[facility] [id number] [facility] RESPIRATORY [id number] [address] [address] CO2 adjusted to patient's actual temperature (Bld) [Partial pressure] Normal [facility] Comment on above: Order Comment: Speci men Type: ARTERIAL BLOOD SPECIMENOrdering Facility: [facility] Address: [address] [place] [address] Performed By: #### A LLBG ####[facility] [id number] [facility] RESPIRATORY [id number] [address] [address] HCO3 (Bld) [Moles/Vol] 28 mmol/L High 22-26 [facility] Comment on above: Order Comment: Speci men Type: ARTERIAL BLOOD SPECIMENOrdering Facility: [facility] Address: [address] [place] [address] Performed By: #### A LLBG ####[facility] [id number] [facility]OS[facility] RESPIRATORY [id number] [address] Hemoglobin (Bld) [Mass/Vol] 10.3 g/dL Low 11.5-15.5 [facility] Comment on above: Order Comment: Speci men Type: ARTERIAL BLOOD SPECIMENOrdering Facility: [facility] Address: [address] [place] [address] Performed By: #### A LLBG ####[facility] [id number] [facility]OS[facility] RESPIRATORY [id number] [address] [address] Lactate [Moles/Vol] 1.0 mmol/L Normal 0.5-2.2 [facility] Comment on above: Order Comment: Speci men Type: ARTERIAL BLOOD SPECIMENOrdering Facility: [facility] Address: [address] [place] [address] Performed By: #### A LLBG ####[facility] [id number] [facility]OS[facility] RESPIRATORY [id number] [address] [address] Methemoglobin (Bld) [Mass fraction] % Normal 0.0-1.5 [facility] Comment on above: Order Comment: Speci men Type: ARTERIAL BLOOD SPECIMENOrdering Facility: [facility] Address: [address] [place] [address] Performed By: #### A LLBG ####[place] [id number] [place] [address] RESPIRATORY [id number] [address] O2 THERAPY RA=[facility] Comment on above: Order Comment: Speci men Type: ARTERIAL BLOOD SPECIMENOrdering Facility: [facility] Address: [address] [place] [address] Performed By: #### A LLBG ####[facility] [id number] [facility]OS[facility] RESPIRATORY [id number] [address] [address] Oxygen (Bld) [Partial pressure] 61 mm Hg Low 85-95 [facility] Comment on above: Order Comment: Speci men Type: ARTERIAL BLOOD SPECIMENOrdering Facility: [facility] Address: [address] [place] [address] Performed By: #### A LLBG ####[facility] [id number] [facility] RESPIRATORY [id number] [address] Oxygen adjusted to patient's actual temperature (Bld) [Partial pressure] Normal [facility] Comment on above: Order Comment: Speci men Type: ARTERIAL BLOOD SPECIMENOrdering Facility: [facility] Address: [address] [place] [address] Performed By: #### A LLBG ####[place] [id number] [place] [address] RESPIRATORY [id number] [address] [address] Oxyhemoglobin (BldA) [Mass fraction] 90 % Low 95-98 [facility] Comment on above: Order Comment: Speci men Type: ARTERIAL BLOOD SPECIMENOrdering Facility: [facility] Address: [address] [place] [address] Performed By: #### A LLBG ####[facility] RESPIRATORYCLIA [id number] [facility] RESPIRATORY [id number] [address] [address] pH (Bld) 7.45 [pH] Normal 7.35-7.45 [facility] Comment on above: Order Comment: Speci men Type: ARTERIAL BLOOD SPECIMENOrdering Facility: [facility] Address: [address] [place] [address] Performed By: #### A LLBG ####[facility] RESPIRATORYCLIA [id number] [facility] RESPIRATORY [id number] [address] [address] pH adjusted to patient's actual temperature (Bld) Normal [facility] Comment on above: Order Comment: Speci men Type: ARTERIAL BLOOD SPECIMENOrdering Facility: [facility] Address: [address] [place] [address] Performed By: #### A LLBG ####[facility] RESPIRATORYCLIA [id number] [facility]OS[facility] RESPIRATORY [id number] [address] [address] PO2 / FIO2 RATIO 290 mmHg Low >300 [facility] Comment on above: Order Comment: Speci men Type: ARTERIAL BLOOD SPECIMENOrdering Facility: [facility] Address: [address] [place] [address] Performed By: #### A LLBG ####[facility] RESPIRATORYCLIA [id number] [facility] RESPIRATORY [id number] [address] [address] Potassium [Moles/Vol] 4.0 mmol/L Normal 3.5-5.0 [facility] Comment on above: Order Comment: Speci men Type: ARTERIAL BLOOD SPECIMENOrdering Facility: [facility] Address: [address] [place] [address] Performed By: #### A LLBG ####[facility] RESPIRATORYCLIA [id number] [facility] RESPIRATORY [id number] [address] [place] [address] Ammonia Plas-sCncon 12-02-19 25 Ammonia (P) [Moles/Vol] 14 umol/L Normal 11-[address] [facility] Comment on above: Order Comment: Speci men Type: BLOOD SPECIMENOrdering Facility: [facility] Address: [address] [place] [address] Performed By: #### 1 6362-6 ####VILLARREAL LABORATORYCLIA [id number] [place] [address] [place] CBC W Auto Differential pane l (Bld)on 12-02-2024 Basophils (Bld) [#/Vol] 0.06 10*3/uL Normal <0.11 [facility] Comment on above: Order Comment: Speci men Type: BLOOD SPECIMENOrdering Facility: [facility] Address: [address] [place] [address] Performed By: #### 5 7021-8 ####VILLARRE[facility] LABORATORYCLIA [id number] [place] [address] [place] Basophils/100 WBC (Bld) 0.3 % Normal [facility] Comment on above: Order Comment: Speci men Type: BLOOD SPECIMENOrdering Facility: [facility] Address: [address] [place] [address] Performed By: #### 5 7021-8 ####VILLARRE[facility] LABORATORYCLIA [id number] [place] [address] [place] Differential cell count method Nom (Bld) Auto Normal [facility] Comment on above: Order Comment: Speci men Type: BLOOD SPECIMENOrdering Facility: [facility] Address: [address] [place] [address] Performed By: #### 5 7021-8 ####VILLARRE[facility] LABORATORYCLIA [id number] [place] [address] [place] Eosinophils (Bld) [#/Vol] 0.24 10*3/uL Normal <0.46 [facility] Comment on above: Order Comment: Speci men Type: BLOOD SPECIMENOrdering Facility: [facility] Address: [address] [place] [address] Performed By: #### 5 7021-8 ####VILLARRE[facility] LABORATORYCLIA [id number] [address] [place] Eosinophils/100 WBC (Bld) 1.2 % Normal [facility] Comment on above: Order Comment: Speci men Type: BLOOD SPECIMENOrdering Facility: [facility] Address: [address] [place] [address] Performed By: #### 5 7021-8 ####VILLARRE[facility] LABORATORYCLIA [id number] [address] [place] Erythrocyte distribution width (RBC) [Ratio] 15.6 % High 11.5-15.0 [facility] Comment on above: Order Comment: Speci men Type: BLOOD SPECIMENOrdering Facility: [facility] Address: [address] [place] [address] Performed By: #### 5 7021-8 ####VILLARRE[facility] LABORATORYCLIA [id number] [address] [place] Hematocrit (Bld) [Volume fraction] 27.1 % Low 36.0-46.0 [facility] Comment on above: Order Comment: Speci men Type: BLOOD SPECIMENOrdering Facility: [facility] Address: [address] [place] [address] Performed By: #### 5 7021-8 ####VILL[facility]AL LABORATORYCLIA [id number] [address] [place] Hemoglobin (Bld) [Mass/Vol] 9.0 g/dL Low 11.5-15.5 [facility] Comment on above: Order Comment: Speci men Type: BLOOD SPECIMENOrdering Facility: [facility] Address: [address] [place] [address] Performed By: #### 5 7021-8 ####VILLARREAL LABORATORYCLIA [id number] [address] [place] Immature granulocytes (Bld) [#/Vol] 0.23 10*3/uL High <0.10 [facility] Comment on above: Order Comment: Speci men Type: BLOOD SPECIMENOrdering Facility: [facility] Address: [address] [place] [address] Performed By: #### 5 7021-8 ####VILLARREAL LABORATORYCLIA [id number] [address] Immature granulocytes/100 WBC (Bld) 1.2 % Normal [facility] Comment on above: Order Comment: Speci men Type: BLOOD SPECIMENOrdering Facility: [facility] Address: [address] [place] [address] Performed By: #### 5 7021-8 ####VILLARREAL LABORATORYCLIA [id number] [place] [address] [place] Lymphocytes (Bld) [#/Vol] 0.92 10*3/uL Low 1.00-4.00 [facility] Comment on above: Order Comment: Speci men Type: BLOOD SPECIMENOrdering Facility: [facility] Address: [address] [place] [address] Performed By: #### 5 7021-8 ####VILLARREAL LABORATORYCLIA [id number] [address] Lymphocytes/100 WBC (Bld) 4.7 % Normal [facility] Comment on above: Order Comment: Speci men Type: BLOOD SPECIMENOrdering Facility: [facility] Address: [address] [place] [address] Performed By: #### 5 7021-8 ####VILLARREAL LABORATORYCLIA [id number] [address] [place] MCH (RBC) [Entitic mass] 28.2 pg Normal 26.0-34.0 [facility] Comment on above: Order Comment: Speci men Type: BLOOD SPECIMENOrdering Facility: [facility] Address: [address] [place] [address] Performed By: #### 5 7021-8 ####VILLARREAL LABORATORYCLIA [id number] [place] [address] [place] MCHC (RBC) [Mass/Vol] 33.2 g/dL Normal 30.5-36.0 [facility] Comment on above: Order Comment: Speci men Type: BLOOD SPECIMENOrdering Facility: [facility] Address: [address] [place] [address] Performed By: #### 5 7021-8 ####VILLARREAL LABORATORYCLIA [id number] [address] [place] MCV (RBC) [Entitic vol] 85.0 fL Normal 80.0-100.0 M [facility] Comment on above: Order Comment: Speci men Type: BLOOD SPECIMENOrdering Facility: [facility] Address: [address] [place] [address] Performed By: #### 5 7021-8 ####VILLARREAL LABORATORYCLIA [id number] [place] [address] [place] Monocytes (Bld) [#/Vol] 1.07 10*3/uL High <0.87 [facility] Comment on above: Order Comment: Speci men Type: BLOOD SPECIMENOrdering Facility: [facility] Address: [address] [place] [address] Performed By: #### 5 7021-8 ####VILLARREAL LABORATORYCLIA [id number] [address] [place] Monocytes/100 WBC (Bld) 5.4 % Normal [facility] Comment on above: Order Comment: Speci men Type: BLOOD SPECIMENOrdering Facility: [facility] Address: [address] [place] [address] Performed By: #### 5 7021-8 ####VILLARREAL LABORATORYCLIA [id number] [place] [address] [place] Neutrophils (Bld) [#/Vol] 17.12 10*3/uL High 1.45-7.50 [facility] Comment on above: Order Comment: Speci men Type: BLOOD SPECIMENOrdering Facility: [facility] Address: [address] [place] [address] Performed By: #### 5 7021-8 ####VILLARREAL LABORATORYCLIA [id number] [address] [place] Neutrophils/100 WBC (Bld) 87.2 % Normal [facility] Comment on above: Order Comment: Speci men Type: BLOOD SPECIMENOrdering Facility: [facility] Address: [address] [place] [address] Performed By: #### 5 7021-8 ####VILLARREAL LABORATORYCLIA [id number] [address] [place] Nucleated RBC (Bld) [#/Vol] 10*3/uL Normal <0.01 [facility] Comment on above: Order Comment: Speci men Type: BLOOD SPECIMENOrdering Facility: [facility] Address: [address] [place] [address] Performed By: #### 5 7021-8 ####VILLARREAL LABORATORYCLIA [id number] [address] [place] Nucleated RBC/100 WBC (Bld) [Ratio] 0.0 /100 WBC Normal [facility] Comment on above: Order Comment: Speci men Type: BLOOD SPECIMENOrdering Facility: [facility] Address: [address] [place] [address] Performed By: #### 5 7021-8 ####VILLARREAL LABORATORYCLIA [id number] [place] [address] [place] Platelet mean volume (Bld) [Entitic vol] 8.8 fL Low 9.0-12.7 [facility] Comment on above: Order Comment: Speci men Type: BLOOD SPECIMENOrdering Facility: [facility] Address: [address] [place] [address] Performed By: #### 5 7021-8 ####VILLARREAL LABORATORYCLIA [id number] [place] [address] [place] Platelets (Bld) [#/Vol] 439 10*3/uL High 150-400 [facility] Comment on above: Order Comment: Speci men Type: BLOOD SPECIMENOrdering Facility: [facility] Address: [address] [place] [address] Performed By: #### 5 7021-8 ####VILLARREAL LABORATORYCLIA [id number] [place] [address] [place] RBC (Bld) [#/Vol] 3.19 10*6/uL Low 3.90-5.20 [facility] Comment on above: Order Comment: Speci men Type: BLOOD SPECIMENOrdering Facility: [facility] Address: [address] [place] [address] Performed By: #### 5 7021-8 ####MASON LABORATORYCLIA [id number] [address] OF [facility] WBC (Bld) [#/Vol] 19.64 10*3/uL High 3.70-11.[address] [facility] Comment on above: Order Comment: Speci men Type: BLOOD SPECIMENOrdering Facility: [facility] Address: [address] [place] [address] Performed By: #### 5 7021-8 ####MASON LABORATORYCLIA [id number] [address] [place] CK SerPl-cCncon 12-02-2024 CK [Catalytic activity/Vol] 48 U/L Normal 42-196 [facility] Comment on above: Order Comment: Speci men Type: BLOOD SPECIMENOrdering Facility: [facility] Address: [address] [place] [address] Performed By: #### 2 951-2, 2157-6, 3084-1 ####MASON LABORATORYCLIA [id number] [address] OF [facility] CONSULT PROGon 12-02-2024 CONSULT PROG Normal [facility] CRP SerPl-mCncon 12-02-2024 CRP [Mass/Vol] 14.2 mg/dL High <0.9 [facility] Comment on above: Order Comment: Speci men Type: BLOOD SPECIMENOrdering Facility: [facility] Address: [address] [place] [address] Performed By: #### 3 084-1, 19798-2, 82956-5, 1987- ####MASON LABORATORYCLIA [id number] [address] [place] Comprehensive metabolic 2000 panelon 12-02-2024 Albumin [Mass/Vol] 2.3 g/dL Low 3.9-4.9 [facility] Comment on above: Order Comment: Speci men Type: BLOOD SPECIMENOrdering Facility: [facility] Address: [address] [place] [address] [place] [address] Performed By: #### 3 084-1, , , 1988-03 ####VILLARREAL LABORATORYCLIA [id number] [place] [address] [place] ALP [Catalytic activity/Vol] 94 U/L Normal 34-123 [facility] Comment on above: Order Comment: Speci men Type: BLOOD SPECIMENOrdering Facility: [facility] Address: [address] [place] [address] Performed By: #### 3 084-1, , , 1988-03 ####VILLARREAL LABORATORYCLIA [id number] [place] [address] [place] ALT [Catalytic activity/Vol] U/L Low 7-38 [facility] Comment on above: Order Comment: Speci men Type: BLOOD SPECIMENOrdering Facility: [facility] Address: [address] [place] [address] Performed By: #### 3 084-1, , , 1988-03 ####VILLARREAL LABORATORYCLIA [id number] [place] [address] [place] Anion gap [Moles/Vol] 11 mmol/L Normal 8-15 [facility] Comment on above: Order Comment: Speci men Type: BLOOD SPECIMENOrdering Facility: [facility] Address: [address] [place] [address] Performed By: #### 3 084-1, , , 1988-03 ####VILLARREAL LABORATORYCLIA [id number] [place] [address] [place] AST [Catalytic activity/Vol] 15 U/L Normal 13-35 [facility] Comment on above: Order Comment: Speci men Type: BLOOD SPECIMENOrdering Facility: [facility] Address: [address] [place] [address] Performed By: #### 3 084-1, , , 1988-03 ####VILLARREAL LABORATORYCLIA [id number] [place] [address] [place] Bilirubin [Mass/Vol] 0.2 mg/dL Normal 0.2-1.[address] [facility] Comment on above: Order Comment: Speci men Type: BLOOD SPECIMENOrdering Facility: [facility] Address: [address] [place] [address] Performed By: #### 3 084-1, , , 1988-03 ####MASON LABORATORYCLIA [id number] [place] [address] [place] Calcium [Mass/Vol] 9.0 mg/dL Normal 8.5-10.2 [facility] Comment on above: Order Comment: Speci men Type: BLOOD SPECIMENOrdering Facility: [facility] Address: [address] [place] [address] Performed By: #### 3 084-1, , , 1988-03 ####MASON LABORATORYCLIA [id number] [place] [address] [place] Chloride [Moles/Vol] 93 mmol/L Low 98-[address] [facility] Comment on above: Order Comment: Speci men Type: BLOOD SPECIMENOrdering Facility: [facility] Address: [address] [place] [address] Performed By: #### 3 084-1, , , 1988-03 ####MASON LABORATORYCLIA [id number] [place] [address] [place] CO2 [Moles/Vol] 24 mmol/L Normal 22-30 [facility] Comment on above: Order Comment: Speci men Type: BLOOD SPECIMENOrdering Facility: [facility] Address: [address] [place] [address] Performed By: #### 3 084-1, , , 1988-03 ####VILLARREAL LABORATORYCLIA [id number] [place] [address] [place] Creatinine [Mass/Vol] 0.89 mg/dL Normal 0.58-0.96 [facility] Comment on above: Order Comment: Speci men Type: BLOOD SPECIMENOrdering Facility: [facility] Address: [address] [place] [address] Performed By: #### 3 084-1, , , 1988-03 ####VILLARREAL LABORATORYCLIA [id number] [place] [address] [place] Creatinine and Glomerular filtration rate.predicted panel (S/P/Bld) 62 mL/min/1.73m??? Normal >=60 [facility] Comment on above: Order Comment: Fan meade Type: BLOOD SPECIMENOrdering Facility: [facility] Address: [address] [place] [address] Result Comment: Hilda mated Glomerular Filtration Rate [...] By: #### 3 084-1, , , 1988-03 ####MASON LABORATORYCLIA [id number] [place] [id number] [place] Glucose [Mass/Vol] 289 mg/dL High 74-99 [facility] Comment on above: Order Comment: Kateleroy meade Type: BLOOD SPECIMENOrdering Facility: [facility] Address: [address] [place] [address] Result Comment: The [place] [employer] (ADA) provides guidance for cutoff [...] Standards of Medical Care in Diabetes 2016, [employer]. Diabetes Care. 2016.39(Suppl 1). Performed By: #### 3 084-1, , , 1988-03 ####VILLARREAL LABORATORYCLIA [id number] [place] [address] [place] Potassium [Moles/Vol] 4.4 mmol/L Normal 3.7-5.1 [facility] Comment on above: Order Comment: Speci men Type: BLOOD SPECIMENOrdering Facility: [facility] Address: [address] [place] [address] Performed By: #### 3 084-1, , , 1988-03 ####VILLARREAL LABORATORYCLIA [id number] [place] [address] [place] Protein [Mass/Vol] 5.6 g/dL Low 6.3-8.0 [facility] Comment on above: Order Comment: Speci men Type: BLOOD SPECIMENOrdering Facility: [facility] Address: [address] [place] [address] Performed By: #### 3 084-1, , , 1988-03 ####VILLARRAEL LABORATORYCLIA [id number] [place] [address] [place] Sodium [Moles/Vol] 128 mmol/L Low 136-144 [facility] Comment on above: Order Comment: Speci men Type: BLOOD SPECIMENOrdering Facility: [facility] Address: [address] [place] [address] Performed By: #### 3 084-1, , , 1988-03 ####VILLARREAL LABORATORYCLIA [id number] [place] [address] [place] Urea nitrogen [Mass/Vol] 36 mg/dL High 7-21 [facility] Comment on above: Order Comment: Speci men Type: BLOOD SPECIMENOrdering Facility: [facility] Address: [address] [place] [address] Performed By: #### 3 084-1, , , 1988-03 ####VILLARREAL LABORATORYCLIA [id number] [place] [address] [place] DNA double strand Ab IA Qn ( S)on 12-02-2024 DNA ANTIBODY 117 IU/mL Normal <=200 [facility] Comment on above: Order Comment: Speci men Type: BLOOD SPECIMENOrdering Facility: [facility] Address: [address] [place] [address] Result Comment: Nega tive: <200 IU/mLEquivocal: 201-300 IU/mLModerate Positive: 301-800 IU/mLStrong Positive: >801 IU/mL Performed By: #### 1 989-3, 89561-0, 94764-0, ANCA, 6969-0 ####[facility] LABIA [id number] [place] [address] [place] DNA ANTIBODY QUALITATIVE INTERPRETATION Negative Normal Negative [facility] Comment on above: Order Comment: Speci men Type: BLOOD SPECIMENOrdering Facility: [facility] Address: [address] [place] [address] Performed By: #### 1 989-3, 47238-3, 61687-8, ANCA, 6969-0 ####[facility] LABIA [id number] [place] [address] [place] ESR Westergren method (Bld) [Velocity]on 12-02-2024 ESR (Bld) [Velocity] 120 mm/h High 0-[address] [facility] Comment on above: Order Comment: Speci men Type: BLOOD SPECIMENOrdering Facility: [facility] Address: [address] [place] [address] Performed By: #### 4 537-7 ####[facility] LABIA [id number] [place] [address] [place] MRI BRAIN WO/W IVCONon 12-02 MRI BRAIN WO/W IVCON Normal [facility] MRI CERVICAL SPINE WO/W IVCO Non 12-02-2024 MRI CERVICAL SPINE WO/W IVCON Normal [facility] MRI LUMBAR SPINE WO/W IVCONo n 12-02-2024 MRI LUMBAR SPINE WO/W IVCON Normal [facility] MRI THORACIC SPINE WO/W IVCO Non 12-02-2024 MRI THORACIC SPINE WO/W IVCON Normal [facility] Magnesium SerPl-mCncon 12-02 Magnesium [Mass/Vol] 1.5 mg/dL Low 1.7-2.[address] [facility] Comment on above: Order Comment: Speci men Type: BLOOD SPECIMENOrdering Facility: [facility] Address: [address] [place] [address] Performed By: #### 3 084-1, 45501-6, 90863-9, 1988-03 ####MASON LABORATORYCLIA [id number] [place] [address] [place] Myeloperoxidase Ab Ser-aCnco n 12-02-2024 Myeloperoxidase Ab Qn (S) <0.2 Normal <1.0 [facility] Comment on above: Order Comment: Speci men Type: BLOOD SPECIMENOrdering Facility: [facility] Address: [address] [place] [address] Performed By: #### 1 989-3, 94338-5, 26274-7, [facility], 6969-0 ####[facility] LABCLIA [id number] [place] [address] [place] Osmolality SerPlon Osmolality [Osmolality] 285 mosm/kg Normal 275-300 [facility] Comment on above: Order Comment: Speci men Type: BLOOD SPECIMENOrdering Facility: [facility] Address: [address] [place] [address] Performed By: #### 2 692-2 ####[facility] LABCLIA [id number] [place] [id number] [place] Osmolality Uron 12-02-2024 Osmolality (U) [Osmolality] 488 mosm/kg Normal 50-1200 [facility] Comment on above: Order Comment: Speci men Type: URINE SPECIMENOrdering Facility: [facility] Address: [address] [place] [address] Performed By: #### 2 695-5 ####[facility] LABCLIA [id number] [place] [id number] [place] PROTEINASE 3 ANTIBODYon 11-14 Proteinase 3 Ab Qn (S) <0.2 Normal <1.0 [facility] Comment on above: Order Comment: Speci men Type: BLOOD SPECIMENOrdering Facility: [facility] Address: [address] [place] [address] Performed By: #### 1 989-3, 64360-0, 94039-8, ANCA, 6969-0 ####[facility] LABCLIA [id number] [place] [address] [place] Phosphate SerPl-mCncon 12-02 Phosphate [Mass/Vol] 3.0 mg/dL Normal 2.7-4.[address] [facility] Comment on above: Order Comment: Speci men Type: BLOOD SPECIMENOrdering Facility: [facility] Address: [address] [place] [address] Performed By: #### 2 777-1 ####MASON LABORATORYCLIA [id number] [place] [address] [place] Smooth muscle Ab Ql (S)on ACTIN SMOOTH MUSCLE IGG QUALITATIVE Negative Normal Negative [facility] Comment on above: Order Comment: Speci men Type: BLOOD SPECIMENOrdering Facility: [facility] Address: [address] [place] [address] Performed By: #### 1 989-3, 97460-6, 82838-9, ANCA, 6969-0 ####[facility] LABCLIA [id number] [place] [id number] [place] ACTIN SMOOTH MUSCLE IGG QUANTITATIVE 3 Units Normal <20 [facility] Comment on above: Order Comment: Speci men Type: BLOOD SPECIMENOrdering Facility: [facility] Address: [address] [place] [address] Performed By: #### 1 989-3, 55174-1, 11878-0, ANCA, 6969-0 ####[facility] LABCLIA [id number] [id number] [address] [place] Sodium SerPl-sCncon 12-02-19 25 Sodium [Moles/Vol] 127 mmol/L Low 136-144 [facility] Comment on above: Order Comment: Speci men Type: BLOOD SPECIMENOrdering Facility: [facility] Address: [address] [place] [address] Performed By: #### 2 951-2 ####VILLARREAL LABORATORYCLIA [id number] [place] [address] [place] Sodium [Moles/Vol] 130 mmol/L Low 136-144 [facility] Comment on above: Order Comment: Speci men Type: BLOOD SPECIMENOrdering Facility: [facility] Address: [address] [place] [address] Performed By: #### 2 951-2, 2157-6, 3084-1 ####VILLARREAL LABORATORYCLIA [id number] [place] [address] [place] US ABD RIGHT UPPER QUADRANTo n 12-02-2024 US ABD RIGHT UPPER QUADRANT Normal [facility] US ABD SPLEEN -NBon 12-02-19 25 US ABD SPLEEN -NB Normal [facility] US EXT MASS/FLUID COLLECTION LTon 12-02-2024 US EXT MASS/FLUID COLLECTION LT Normal [facility] Urate SerPl-mCncon 5 Urate [Mass/Vol] 4.9 mg/dL Normal 2.5-6.6 [facility] Comment on above: Order Comment: Speci men Type: BLOOD SPECIMENOrdering Facility: [facility] Address: [address] [place], [place] [address] [address] Performed By: #### 2 951-2, 06, 3084-1 ####VILLARREAL LABORATORYCLIA [id number] [address] [place] Urate [Mass/Vol] 5.1 mg/dL Normal 2.5-6.6 [facility] Comment on above: Order Comment: Speci men Type: BLOOD SPECIMENOrdering Facility: [facility] Address: [address] [place] [address] Performed By: #### 3 084-1, 53380-9, 28014-8, 1987- ####MASON LABORATORYCLIA [id number] [place] [address] [place] ALLIED HEALTHon 12-01-2024 ALLIED HEALTH Normal [facility] Bacteria Ur Culton Bacteria identified Cx Nom (U) CULTURE, URINE: Mixed microbiota: ORGANISM ID: 1 <10,000 CFU/ml Lactose negative gram negative bacilli Insignificant colony count. No further workup. Normal [facility] Comment on above: Performed By: #### 6 30-4 ####[facility] LABCLIA [id number] [facility] [id number] [address] [place] Basic metabolic 2000 panelon 12-01-2024 Anion gap [Moles/Vol] 12 mmol/L Normal 8-15 [facility] Comment on above: Order Comment: Speci men Type: BLOOD SPECIMENOrdering Facility: [facility] Address: [address] [place] [address] Performed By: #### 2 4321-2 ####MAS[facility] LABORATORYCLIA [id number] [place] [address] [place] Calcium [Mass/Vol] 8.7 mg/dL Normal 8.5-10.2 [facility] Comment on above: Order Comment: Speci men Type: BLOOD SPECIMENOrdering Facility: [facility] Address: [address] [place] [address] Performed By: #### 2 4321-2 ####MAS[facility] LABORATORYCLIA [id number] [place] [address] [place] Chloride [Moles/Vol] 91 mmol/L Low 98-[address] [facility] Comment on above: Order Comment: Speci men Type: BLOOD SPECIMENOrdering Facility: [facility] Address: [address] [place] [address] Performed By: #### 2 4321-2 ####VILLARRE[facility] LABORATORYCLIA [id number] [place] [address] [place] CO2 [Moles/Vol] 25 mmol/L Normal 22-30 [facility] Comment on above: Order Comment: Speci men Type: BLOOD SPECIMENOrdering Facility: [facility] Address: [address] [place] [address] Performed By: #### 2 4321-2 ####VILLAR[facility] LABORATORYCLIA [id number] [address] Creatinine [Mass/Vol] 1.03 mg/dL High 0.58-0.96 [facility] Comment on above: Order Comment: Fan halina Type: BLOOD SPECIMENOrdering Facility: [facility] Address: [address] [place] [address] Performed By: #### 2 4321-2 ####VILL[facility] LABORATORYCLIA [id number] [address] Creatinine and Glomerular filtration rate.predicted panel (S/P/Bld) 52 mL/min/1.73m??? Low >=60 [facility] Comment on above: Order Comment: Fan meade Type: BLOOD SPECIMENOrdering Facility: [facility] Address: [address] [place] [address] Result Comment: Hilda mated Glomerular Filtration Rate [...] Performed By: #### 2 4321-2 ####VILL[facility] LABORATORYCLIA [id number] [address] Glucose [Mass/Vol] 200 mg/dL High 74-99 [facility] Comment on above: Order Comment: Fan [facility] Type: BLOOD SPECIMENOrdering Facility: [facility] Address: [address] [place] [address] Result Comment: The [place] [employer] (ADA) provides guidance for cutoff [...] Standards of Medical Care in Diabetes 2016, [place] [employer]. Diabetes Care. 2016.39(Suppl 1). Performed By: #### 2 4321-2 ####VILLARRE[facility] LABORATORYCLIA [id number] [place] [address] [place] Potassium [Moles/Vol] 4.7 mmol/L Normal 3.7-5.1 [facility] Comment on above: Order Comment: Fan meade Type: BLOOD SPECIMENOrdering Facility: [facility] Address: [address] [place] [address] Performed By: #### 2 4321-2 ####VILLARRE[facility] LABORATORYCLIA [id number] [place] [address] [place] Sodium [Moles/Vol] 128 mmol/L Low 136-144 [facility] Comment on above: Order Comment: Fan meade Type: BLOOD SPECIMENOrdering Facility: [facility] Address: [address] [place] [address] Performed By: #### 2 4321-2 ####VILLAR[facility] LABORATORYCLIA [id number] [place] [address] [place] Urea nitrogen [Mass/Vol] 36 mg/dL High 7-21 [facility] Comment on above: Order Comment: Fan meade Type: BLOOD SPECIMENOrdering Facility: [facility] Address: [address] [place] [address] Performed By: #### 2 4321-2 ####VILLARREAL LABORATORYCLIA [id number] [place] [address] [place] Anion gap [Moles/Vol] 12 mmol/L Normal 8-15 [facility] Comment on above: Order Comment: Fan meade Type: BLOOD SPECIMENOrdering Facility: [facility] Address: [address] [place] [address] Performed By: #### 1 9123-9, 33728-0, 10452-9, 44814-3, 29251-1 ####[facility]ILL[facility]RE[facility] LABORATORYCLIA [id number] [place] [address] [place] Calcium [Mass/Vol] 9.4 mg/dL Normal 8.5-10.2 [facility] Comment on above: Order Comment: Speci men Type: BLOOD SPECIMENOrdering Facility: [facility] Address: [address] [place] [address] Performed By: #### 1 9123-9, 75234-6, 89043-2, 48667-9, 49614-0 ####MASON LABORATORYCLIA [id number] [place] [address] [place] Chloride [Moles/Vol] 92 mmol/L Low 98-[address] [facility] Comment on above: Order Comment: Speci men Type: BLOOD SPECIMENOrdering Facility: [facility] Address: [address] [place] [address] Performed By: #### 1 9123-9, 65811-2, 02575-0, 16029-8, 30598-1 ####[facility]ASON LABORATORYCLIA [id number] [place] [address] [place] CO2 [Moles/Vol] 25 mmol/L Normal 22-30 [facility] Comment on above: Order Comment: Speci men Type: BLOOD SPECIMENOrdering Facility: [facility] Address: [address] [place] [address] Performed By: #### 1 9123-9, 53109-2, 88453-1, 90155-3, 13098-0 ####MASON LABORATORYCLIA [id number] [place] [address] [place] Creatinine [Mass/Vol] 0.95 mg/dL Normal 0.58-0.96 [facility] Comment on above: Order Comment: Speci men Type: BLOOD SPECIMENOrdering Facility: [facility] Address: [address] [place] [address] Performed By: #### 1 9123-9, 96004-9, 67717-3, 43910-8, 87497-6 ####MASON LABORATORYCLIA [id number] [place] [address] [place] Creatinine and Glomerular filtration rate.predicted panel (S/P/Bld) 58 mL/min/1.73m??? Low >=60 [facility] Comment on above: Order Comment: Fan meade Type: BLOOD SPECIMENOrdering Facility: [facility] Address: [address] [place] [address] Result Comment: Hilda mated Glomerular Filtration Rate [...] actual GFR. Performed By: #### 1 9123-9, 81656-3, 82579-2, 76224-3, 68018-2 ####MASON LABORATORYCLIA [id number] [place] [address] [place] Glucose [Mass/Vol] 230 mg/dL High 74-99 [facility] Comment on above: Order Comment: Fan meade Type: BLOOD SPECIMENOrdering Facility: [facility] Address: [address] [place] [address] Result Comment: The [place] [employer] (ADA) provides guidance for cutoff [...] Standards of Medical Care in Diabetes 2016, [employer]. Diabetes Care. 2016.39(Suppl 1). Performed By: #### 1 9123-9, 58777-4, 00968-2, 53311-8, 45484-2 ####MASON LABORATORYCLIA [id number] [place] [address] [place] Potassium [Moles/Vol] 4.7 mmol/L Normal 3.7-5.1 [facility] Comment on above: Order Comment: Speci men Type: BLOOD SPECIMENOrdering Facility: [facility] Address: [address] [place] [address] Performed By: #### 1 9123-9, 32172-0, 59582-5, 99579-8, 33330-0 ####VILLARREAL LABORATORYCLIA [id number] [place] [address] [place] [facility] Sodium [Moles/Vol] 129 mmol/L Low 136-144 [facility] Comment on above: Order Comment: Speci men Type: BLOOD SPECIMENOrdering Facility: [facility] Address: [address] [place] [address] Performed By: #### 1 9123-9, 26151-2, 82744-5, 40423-2, 45666-7 ####MASON LABORATORYCLIA [id number] [address] STATES OF [facility] Urea nitrogen [Mass/Vol] 36 mg/dL High 7-21 [facility] Comment on above: Order Comment: Speci men Type: BLOOD SPECIMENOrdering Facility: [facility] Address: [address] [place] [address] Performed By: #### 1 9123-9, 61824-3, 44515-9, 89221-2, 97670-4 ####MASON LABORATORYCLIA [id number] [address] STATES [place] [facility] CBC W Auto Differential pane l (Bld)on 12-01-2024 Basophils (Bld) [#/Vol] 0.06 10*3/uL Normal <0.11 [facility] Comment on above: Order Comment: Speci men Type: BLOOD SPECIMENOrdering Facility: [facility] Address: [address] [place] [address] Performed By: #### 5 7021-8 ####MASON LABORATORYCLIA [id number] [address] STATES [facility] Basophils/100 WBC (Bld) 0.3 % Normal [facility] Comment on above: Order Comment: Speci men Type: BLOOD SPECIMENOrdering Facility: [facility] Address: [address] [place] [address] Performed By: #### 5 7021-8 ####VILLARREAL LABORATORYCLIA [id number] [address] [place] Differential cell count method Nom (Bld) Auto Normal [facility] Comment on above: Order Comment: Speci men Type: BLOOD SPECIMENOrdering Facility: [facility] Address: [address] [place] [address] Performed By: #### 5 7021-8 ####VILLARREAL LABORATORYCLIA [id number] [place] [address] [place] Eosinophils (Bld) [#/Vol] 0.20 10*3/uL Normal <0.46 [facility] Comment on above: Order Comment: Speci men Type: BLOOD SPECIMENOrdering Facility: [facility] Address: [address] [place] [address] Performed By: #### 5 7021-8 ####VILLARREAL LABORATORYCLIA [id number] [address] [place] Eosinophils/100 WBC (Bld) 0.9 % Normal [facility] Comment on above: Order Comment: Speci men Type: BLOOD SPECIMENOrdering Facility: [facility] Address: [address] [place] [address] Performed By: #### 5 7021-8 ####VILLARREAL LABORATORYCLIA [id number] [address] Erythrocyte distribution width (RBC) [Ratio] 15.9 % High 11.5-15.0 [facility] Comment on above: Order Comment: Speci men Type: BLOOD SPECIMENOrdering Facility: [facility] Address: [address] [place] [address] Performed By: #### 5 7021-8 ####VILLARREAL LABORATORYCLIA [id number] [address] [place] Hematocrit (Bld) [Volume fraction] 26.6 % Low 36.0-46.0 [facility] Comment on above: Order Comment: Speci men Type: BLOOD SPECIMENOrdering Facility: [facility] Address: [address] [place], [place] [address], [place] [address] Performed By: #### 5 7021-8 ####VILLARREAL LABORATORYCLIA [id number] [place] [address] [place] Hemoglobin (Bld) [Mass/Vol] 8.8 g/dL Low 11.5-15.5 [facility] Comment on above: Order Comment: Speci men Type: BLOOD SPECIMENOrdering Facility: [facility] Address: [address] [place] [address] Performed By: #### 5 7021-8 ####VILLARREAL LABORATORYCLIA [id number] [place] [address] [place] Immature granulocytes (Bld) [#/Vol] 0.32 10*3/uL High <0.10 [facility] Comment on above: Order Comment: Speci men Type: BLOOD SPECIMENOrdering Facility: [facility] Address: [address] [place] [address] Performed By: #### 5 7021-8 ####VILLARREAL LABORATORYCLIA [id number] [place] [address] [place] Immature granulocytes/100 WBC (Bld) 1.4 % Normal [facility] Comment on above: Order Comment: Speci men Type: BLOOD SPECIMENOrdering Facility: [facility] Address: [address] [place] [address] Performed By: #### 5 7021-8 ####VILLARREAL LABORATORYCLIA [id number] [place] [address] [place] Lymphocytes (Bld) [#/Vol] 1.00 10*3/uL Normal 1.00-4.00 [facility] Comment on above: Order Comment: Speci men Type: BLOOD SPECIMENOrdering Facility: [facility] Address: [address] [place] [address] Performed By: #### 5 7021-8 ####VILLARREAL LABORATORYCLIA [id number] [place] [address] [place] Lymphocytes/100 WBC (Bld) 4.5 % Normal [facility] Comment on above: Order Comment: Speci men Type: BLOOD SPECIMENOrdering Facility: [facility] Address: [address] [place] [address] Performed By: #### 5 7021-8 ####VILLARREAL LABORATORYCLIA [id number] [address] MCH (RBC) [Entitic mass] 28.3 pg Normal 26.0-34.0 [facility] Comment on above: Order Comment: Speci men Type: BLOOD SPECIMENOrdering Facility: [facility] Address: [address] [place] [address] Performed By: #### 5 7021-8 ####VILLARREAL LABORATORYCLIA [id number] [place] [address] [place] MCHC (RBC) [Mass/Vol] 33.1 g/dL Normal 30.5-36.0 [facility] Comment on above: Order Comment: Speci men Type: BLOOD SPECIMENOrdering Facility: [facility] Address: [address] [place] [address] Performed By: #### 5 7021-8 ####VILLARREAL LABORATORYCLIA [id number] [address] MCV (RBC) [Entitic vol] 85.5 fL Normal 80.0-100.[address] [facility] Comment on above: Order Comment: Speci men Type: BLOOD SPECIMENOrdering Facility: [facility] Address: [address] [place] [address] Performed By: #### 5 7021-8 ####VILLARREAL LABORATORYCLIA [id number] [address] [place] Monocytes (Bld) [#/Vol] 1.18 10*3/uL High <0.87 [facility] Comment on above: Order Comment: Speci men Type: BLOOD SPECIMENOrdering Facility: [facility] Address: [address] [place] [address] Performed By: #### 5 7021-8 ####VILLARREAL LABORATORYCLIA [id number] [address] Monocytes/100 WBC (Bld) 5.3 % Normal [facility] Comment on above: Order Comment: Speci men Type: BLOOD SPECIMENOrdering Facility: [facility] Address: [address] [place] [address] Performed By: #### 5 7021-8 ####VILLARREAL LABORATORYCLIA [id number] [address] [place] Neutrophils (Bld) [#/Vol] 19.49 10*3/uL High 1.45-7.50 [facility] Comment on above: Order Comment: Speci men Type: BLOOD SPECIMENOrdering Facility: [facility] Address: [address] [place] [address] Performed By: #### 5 7021-8 ####VILLARREAL LABORATORYCLIA [id number] [address] [place] Neutrophils/100 WBC (Bld) 87.6 % Normal [facility] Comment on above: Order Comment: Speci men Type: BLOOD SPECIMENOrdering Facility: [facility] Address: [address] [place] [address] Performed By: #### 5 7021-8 ####VILLARREAL LABORATORYCLIA [id number] [place] [address] [place] Nucleated RBC (Bld) [#/Vol] 10*3/uL Normal <0.01 [facility] Comment on above: Order Comment: Speci men Type: BLOOD SPECIMENOrdering Facility: [facility] Address: [address] [place] [address] Performed By: #### 5 7021-8 ####VILLARREAL LABORATORYCLIA [id number] [address] [place] Nucleated RBC/100 WBC (Bld) [Ratio] 0.0 /100 WBC Normal [facility] Comment on above: Order Comment: Speci men Type: BLOOD SPECIMENOrdering Facility: [facility] Address: [address] [place] [address] Performed By: #### 5 7021-8 ####VILLARREAL LABORATORYCLIA [id number] [place] [address] [place] Platelet mean volume (Bld) [Entitic vol] 8.7 fL Low 9.0-12.7 [facility] Comment on above: Order Comment: Speci men Type: BLOOD SPECIMENOrdering Facility: [facility] Address: [address] [place] [address] Performed By: #### 5 7021-8 ####VILLARREAL LABORATORYCLIA [id number] [address] [place] Platelets (Bld) [#/Vol] 435 10*3/uL High 150-400 [facility] Comment on above: Order Comment: Speci men Type: BLOOD SPECIMENOrdering Facility: [facility] Address: [address] [place] [address] Performed By: #### 5 7021-8 ####VILLARREAL LABORATORYCLIA [id number] [place] [address] [place] RBC (Bld) [#/Vol] 3.11 10*6/uL Low 3.90-5.20 [facility] Comment on above: Order Comment: Speci men Type: BLOOD SPECIMENOrdering Facility: [facility] Address: [address] [place] [address] Performed By: #### 5 7021-8 ####VILLARREAL LABORATORYCLIA [id number] [place] [address] [place] WBC (Bld) [#/Vol] 22.25 10*3/uL High 3.70-11.[address] [facility] Comment on above: Order Comment: Speci men Type: BLOOD SPECIMENOrdering Facility: [facility] Address: [address] [place] [address] Performed By: #### 5 7021-8 ####VILLARREAL LABORATORYCLIA [id number] [address] [place] CONSULT PROGon 12-01-2024 CONSULT PROG [facility] CONSULT PROG [facility] CT ABD/PEL W IVCONon 025 CT ABD/PEL W IVCON Normal [facility] ECG COMPLETEon 12-01-2024 ECG COMPLETE Normal [facility] Hepatic function 2000 panelo n 12-01-2024 Albumin [Mass/Vol] 2.7 g/dL Low 3.9-4.9 [facility] Comment on above: Order Comment: Speci men Type: BLOOD SPECIMENOrdering Facility: [facility] Address: [address] [place] [address] Performed By: #### 1 9123-9, 70627-1, 62065-1, 56751-5, 77586-5 ####VILLARREAL LABORATORYCLIA [id number] [address] STATES OF [facility] ALP [Catalytic activity/Vol] 79 U/L Normal 34-123 [facility] Comment on above: Order Comment: Speci men Type: BLOOD SPECIMENOrdering Facility: [facility] Address: [address] [place] [address] Performed By: #### 1 9123-9, 58385-8, 59562-5, 29174-3, 22387-2 ####VILLARREAL LABORATORYCLIA [id number] [address] [place] ALT [Catalytic activity/Vol] U/L Low 7-38 [facility] Comment on above: Order Comment: Speci men Type: BLOOD SPECIMENOrdering Facility: [facility] Address: [address] [place] [address] Performed By: #### 1 9123-9, 53379-0, 00955-6, 44139-2, 72988-1 ####VILLARRE[facility] LABORATORYCLIA [id number] [address] [place] [facility] AST [Catalytic activity/Vol] 20 U/L Normal 13-35 [facility] Comment on above: Order Comment: Speci men Type: BLOOD SPECIMENOrdering Facility: [facility] Address: [address] [place] [address] Performed By: #### 1 9123-9, 43446-3, 15769-9, 01235-3, 74209-7 ####VILLARREAL LABORATORYCLIA [id number] [address] Bilirubin [Mass/Vol] 0.2 mg/dL Normal 0.2-1.[address] [facility] Comment on above: Order Comment: Speci men Type: BLOOD SPECIMENOrdering Facility: [facility] Address: [address] [place] [address] Performed By: #### 1 9123-9, 26965-3, 46397-2, 37923-6, 57143-7 ####MASON LABORATORYCLIA [id number] [place] [address] [place] Bilirubin.conjugated [Mass/Vol] mg/dL Normal <0.3 [facility] Comment on above: Order Comment: Speci men Type: BLOOD SPECIMENOrdering Facility: [facility] Address: [facility] [place] [address] Performed By: #### 1 9123-9, 36916-0, 93072-6, 25145-9, 14395-5 ####MASON LABORATORYCLIA [id number] [address] [place] [facility] Protein [Mass/Vol] 5.9 g/dL Low 6.3-8.0 [facility] Comment on above: Order Comment: Speci men Type: BLOOD SPECIMENOrdering Facility: [facility] Address: [facility] [place] [address] Performed By: #### 1 9123-9, 20165-8, 85193-1, 52351-5, 94827-4 ####MASON LABORATORYCLIA [id number] [address] [place] MRI ANKLE WO IVCON LTon 11-14 MRI ANKLE WO IVCON LT Normal [facility] MRI FOOT/TOES WO IVCON LTon 12-01-2024 MRI FOOT/TOES WO IVCON LT Normal [facility] Magnesium SerPl-mCncon 12-01 Magnesium [Mass/Vol] 2.3 mg/dL Normal 1.7-2.[address] [facility] Comment on above: Order Comment: Speci men Type: BLOOD SPECIMENOrdering Facility: [facility] Address: [address] [place] [address] Performed By: #### 1 9123-9, 69602-6, 93524-6, 88570-2, 29871-8 ####MASON LABORATORYCLIA [id number] [address] [place] NT-proBNP SerPl-mCncon 01-18 -2025 Natriuretic peptide.B prohormone N-Terminal [Mass/Vol] 1162 pg/mL High <450 [facility] Comment on above: Order Comment: Speci men Type: BLOOD SPECIMENOrdering Facility: [facility] Address: [address] [place] [address] Performed By: #### 1 9123-9, 45807-2, 29794-5, 50601-3, 63641-4 ####VILLARREAL LABORATORYCLIA [id number] [address] [place] Procalcitonin SerPl-mCncon 0 12-01-2024 Procalcitonin [Mass/Vol] 0.24 ng/mL High <0.09 [facility] Comment on above: Order Comment: Speci men Type: BLOOD SPECIMENOrdering Facility: [facility] Address: [address] [place] [address] Result Comment: For a guided interpretation of test results, please visit the Change in Procalcitonin Calculator, [email or web address]. Performed By: #### 1 9123-9, 11002-5, 28272-3, 80317-7, 25846-7 ####VILLARREAL LABORATORYCLIA [id number] [place] [address] [place] SEPSIS LACTATEon 12-01-2024 Lactate [Moles/Vol] 1.5 mmol/L Normal 0.5-2.0 [facility] Comment on above: Order Comment: Speci men Type: BLOOD SPECIMENOrdering Facility: [facility] Address: [address] [place] [address] Performed By: #### S LACT ####VILLARREAL LABORATORYCLIA [id number] [place] [address] [place] Sodium ?Tm Ur-sCncon 025 Sodium Unsp time (U) [Moles/Vol] 39 mmol/L Normal 14-216 [facility] Comment on above: Order Comment: Speci men Type: URINE SPECIMENOrdering Facility: [facility] Address: [address] [place] [address] Performed By: #### 3 5678-2 ####[facility] LABCLIA [id number] [address] [place] [address] [place] URINALYSIS, REFLEX MICROSCOP ICon 12-01-2024 Bacteria LM.HPF (Urine sed) [#/Area] Few Abnormal None Seen [facility] Comment on above: Order Comment: Speci men Type: URINE SPECIMENOrdering Facility: [facility] Address: [address] [place] [address] Performed By: #### L [id number] ####VILLARREAL LABORATORYCLIA [id number] [place] [address] [place] Bilirubin Ql (U) Negative Normal Negative [facility] Comment on above: Order Comment: Speci men Type: URINE SPECIMENOrdering Facility: [facility] Address: [address] [place] [address] Performed By: #### L [id number] ####[facility]CL[facility] [id number] [address] [place] Clarity (Unsp spec) Clear Normal Clear [facility] Comment on above: Order Comment: Speci men Type: URINE SPECIMENOrdering Facility: [facility] Address: [address] [place] [address] Performed By: #### L [id number] ####VILLARREAL LABORATORYCLIA [id number] [address] Color (U) Yellow Normal Yellow [facility] Comment on above: Order Comment: Speci men Type: URINE SPECIMENOrdering Facility: [facility] Address: [address] [place] [address] Performed By: #### L [id number] ####VILLARREAL LABORATORYCLIA [id number] [address] [place] Epithelial cells LM.HPF (Urine sed) [#/Area] Few Normal [facility] Comment on above: Order Comment: Speci men Type: URINE SPECIMENOrdering Facility: [facility] Address: [address] [place] [address] Performed By: #### L [id number] ####VILLARREAL LABORATORYCLIA [id number] [address] [place] Glucose Test strip (U) [Mass/Vol] Trace Abnormal Negative [facility] Comment on above: Order Comment: Speci men Type: URINE SPECIMENOrdering Facility: [facility] Address: [address] [place] [address] Performed By: #### L [id number] ####VILLARREAL LABORATORYCLIA [id number] [address] Hemoglobin Ql (U) Negative Normal Negative [facility] Comment on above: Order Comment: Speci men Type: URINE SPECIMENOrdering Facility: [facility] Address: [address] [place] [address] Performed By: #### L [id number] ####VILL[facility] LABORATORYCLIA [id number] [address] Ketones Ql (U) Trace Abnormal Negative [facility] Comment on above: Order Comment: Speci men Type: URINE SPECIMENOrdering Facility: [facility] Address: [address] [place] [address] Performed By: #### L [id number] ####VILLARRE[facility] LABORATORYCLIA [id number] [address] Leukocyte esterase Test strip Ql (U) Trace Abnormal Negative [facility] Comment on above: Order Comment: Speci men Type: URINE SPECIMENOrdering Facility: [facility] Address: [address] [place] [address] Performed By: #### L [id number] ####VILL[facility] LABORATORYCLIA [id number] [address] Nitrite Ql (U) Negative Normal Negative [facility] Comment on above: Order Comment: Speci men Type: URINE SPECIMENOrdering Facility: [facility] Address: [address] [place] [address] Performed By: #### L [id number] ####VILL[facility] LABORATORYCLIA [id number] [address] pH (U) 5.5 [pH] Normal 5.0-8.0 [facility] Comment on above: Order Comment: Speci men Type: URINE SPECIMENOrdering Facility: [facility] Address: [address] [place] [address] Performed By: #### L [id number] ####VILL[facility] LABORATORYCLIA [id number] [address] Protein (U) [Mass/Vol] 2+ Abnormal Negative [facility] Comment on above: Order Comment: Speci men Type: URINE SPECIMENOrdering Facility: [facility] Address: [address] [place] [address] Performed By: #### L [id number] ####[facility] LABORATORYCLIA [id number] [address] [place] RBC LM.HPF (Urine sed) [#/Area] 0-3 /HPF Normal 0-3 /HPF [facility] Comment on above: Order Comment: Speci men Type: URINE SPECIMENOrdering Facility: [facility] Address: [address] [place] [address] Performed By: #### L [id number] ####[facility] LABORATORYCLIA [id number] [address] Specific gravity (U) [Rel density] 1.025 Normal 1.005-1.030 [facility] Comment on above: Order Comment: Speci men Type: URINE SPECIMENOrdering Facility: [facility] Address: [address] [place] [address] Performed By: #### L [id number] ####[facility] LABORATORYCLIA [id number] [address] Urobilinogen Ql (U) 0.2 EU/dL Normal 0.2-1.0 EU/dL [facility] Comment on above: Order Comment: Speci men Type: URINE SPECIMENOrdering Facility: [facility] Address: [address] [place] [address] Performed By: #### L [id number] ####[facility] LABORATORYCLIA [id number] [address] WBC LM.HPF (Urine sed) [#/Area] 6-10 /HPF Abnormal 0-5 /HPF [facility] Comment on above: Order Comment: Speci men Type: URINE SPECIMENOrdering Facility: [facility] Address: [address] [place] [address] Performed By: #### L [id number] ####VILL[facility] LABORATORYCLIA [id number] [place] [address] [place] Yeast.budding LM.HPF (Urine sed) [#/Area] Few Abnormal None Seen [facility] Comment on above: Order Comment: Speci men Type: URINE SPECIMENOrdering Facility: [facility] Address: [address] [place] [address] Performed By: #### L [id number] ####VILL[facility]AL LABORATORYCLIA [id number] [place] [address] [place] ALLIED HEALTHon 11-30-2024 ALLIED HEALTH Normal [facility] Bacteria Bld Culton 11-30-19 25 Bacteria identified Cx Nom (Bld) CULTURE, BLOOD: No growth 5 days Normal [facility] Comment on above: Performed By: #### 6 00-7 ####[facility] LABCLIA [id number] [place] [address] [place] Bacteria identified Cx Nom (Bld) CULTURE, BLOOD: No growth 5 days Normal [facility] Comment on above: Performed By: #### 6 00-7 ####[facility] LABCLIA [id number] [place] [address] [place] Basic metabolic 2000 panelon 11-30-2024 Anion gap [Moles/Vol] 12 mmol/L Normal 8-15 [facility] Comment on above: Order Comment: Speci men Type: BLOOD SPECIMENOrdering Facility: [facility] Address: [address] [place] [address] Performed By: #### 2 4321-2, 16833-8 ####MASON LABORATORYCLIA [id number] [place] [address] [place] Calcium [Mass/Vol] 9.1 mg/dL Normal 8.5-10.2 [facility] Comment on above: Order Comment: Speci men Type: BLOOD SPECIMENOrdering Facility: [facility] Address: [address] [place] [address] Performed By: #### 2 4321-2, ####VLILARREAL LABORATORYCLIA [id number] [place] [address] [place] Chloride [Moles/Vol] 95 mmol/L Low 98-[address] [facility] Comment on above: Order Comment: Specleroy meade Type: BLOOD SPECIMENOrdering Facility: [facility] Address: [address] [place] [address] Performed By: #### 2 4321-2, ####VILLARREAL LABORATORYCLIA [id number] [place] [address] [place] CO2 [Moles/Vol] 25 mmol/L Normal 22-30 [facility] Comment on above: Order Comment: Katei halina Type: BLOOD SPECIMENOrdering Facility: [facility] Address: [address] [place] [address] Performed By: #### 2 4321-2, ####VILLARREAL LABORATORYCLIA [id number] [place] [id number] [place] Creatinine [Mass/Vol] 0.86 mg/dL Normal 0.58-0.96 [facility] Comment on above: Order Comment: Fan meade Type: BLOOD SPECIMENOrdering Facility: [facility] Address: [address] [place] [address] Performed By: #### 2 4321-2, ####VILLARREAL LABORATORYCLIA [id number] [address] Creatinine and Glomerular filtration rate.predicted panel (S/P/Bld) 65 mL/min/1.73m??? Normal >=60 [facility] Comment on above: Order Comment: Fan meade Type: BLOOD SPECIMENOrdering Facility: [facility] Address: [address] [place] [address] Result Comment: Hilda mated Glomerular Filtration Rate [...] GFR. Performed By: #### 2 ####VILLARREAL LABORATORYCLIA [id number] [place] [id number] [place] Glucose [Mass/Vol] 237 mg/dL High 74-99 [facility] Comment on above: Order Comment: Fan meade Type: BLOOD SPECIMENOrdering Facility: [facility] Address: [address] [place] [address] Result Comment: The [employer] (ADA) provides guidance for cutoff [...] Standards of Medical Care in Diabetes 2016, [employer]. Diabetes Care. 2016.39(Suppl 1). Performed By: #### 2 ####VILLARREAL LABORATORYCLIA [id number] [place] [address] [place] Potassium [Moles/Vol] 4.2 mmol/L Normal 3.7-5.1 [facility] Comment on above: Order Comment: Fan meade Type: BLOOD SPECIMENOrdering Facility: [facility] Address: [address] [place] [address] Performed By: #### 2 4320-12, ####VILLARREAL LABORATORYCLIA [id number] [place] [address] [place] Sodium [Moles/Vol] 132 mmol/L Low 136-144 [facility] Comment on above: Order Comment: Fan meade Type: BLOOD SPECIMENOrdering Facility: [facility] Address: [address] [place], [place] [address] Performed By: #### 2 4320-12, ####VILLARREAL LABORATORYCLIA [id number] [place] [address] [place] Urea nitrogen [Mass/Vol] 26 mg/dL High 7-21 [facility] Comment on above: Order Comment: Speci men Type: BLOOD SPECIMENOrdering Facility: [facility] Address: [address] [place] [address] Performed By: #### 2 4321-2, 73009-4 ####VILLARREAL LABORATORYCLIA [id number] [place] [address] [place] CASE MANAGEMon 11-30-2024 CASE MANAGEM Normal [facility] CASE MANAGEM Normal [facility] CBC W Auto Differential pane l (Bld)on 11-30-2024 Basophils (Bld) [#/Vol] 0.05 10*3/uL Normal <0.11 [facility] Comment on above: Order Comment: Speci men Type: BLOOD SPECIMENOrdering Facility: [facility] Address: [address] [place] [address] Performed By: #### 5 7021-8 ####VILLARREAL LABORATORYCLIA [id number] [place] [address] [place] Basophils/100 WBC (Bld) 0.3 % Normal [facility] Comment on above: Order Comment: Speci men Type: BLOOD SPECIMENOrdering Facility: [facility] Address: [address] [place] [address] Performed By: #### 5 7021-8 ####VILLARREAL LABORATORYCLIA [id number] [place] [address] [place] Differential cell count method Nom (Bld) Auto Normal [facility] Comment on above: Order Comment: Speci men Type: BLOOD SPECIMENOrdering Facility: [facility] Address: [address] [place] [address] Performed By: #### 5 7021-8 ####VILLARREAL LABORATORYCLIA [id number] [place] [address] [place] Eosinophils (Bld) [#/Vol] 0.27 10*3/uL Normal <0.46 [facility] Comment on above: Order Comment: Speci men Type: BLOOD SPECIMENOrdering Facility: [facility] Address: [address] [place] [address] Performed By: #### 5 7021-8 ####VILLARREAL LABORATORYCLIA [id number] [place] [address] [place] Eosinophils/100 WBC (Bld) 1.8 % Normal [facility] Comment on above: Order Comment: Speci men Type: BLOOD SPECIMENOrdering Facility: [facility] Address: [address] [place] [address] Performed By: #### 5 7021-8 ####VILLARREAL LABORATORYCLIA [id number] [place] [address] [place] Erythrocyte distribution width (RBC) [Ratio] 15.6 % High 11.5-15.0 [facility] Comment on above: Order Comment: Speci men Type: BLOOD SPECIMENOrdering Facility: [facility] Address: [address] [place] [address] Performed By: #### 5 7021-8 ####VILLARREAL LABORATORYCLIA [id number] [place] [address] [place] Hematocrit (Bld) [Volume fraction] 29.9 % Low 36.0-46.0 [facility] Comment on above: Order Comment: Speci men Type: BLOOD SPECIMENOrdering Facility: [facility] Address: [address] [place] [address] Performed By: #### 5 7021-8 ####VILLARREAL LABORATORYCLIA [id number] [place] [address] [place] Hemoglobin (Bld) [Mass/Vol] 9.9 g/dL Low 11.5-15.5 [facility] Comment on above: Order Comment: Speci men Type: BLOOD SPECIMENOrdering Facility: [facility] Address: [address] [place] [address] Performed By: #### 5 7021-8 ####VILLRAREAL LABORATORYCLIA [id number] [place] [address] [place] Immature granulocytes (Bld) [#/Vol] 0.24 10*3/uL High <0.10 [facility] Comment on above: Order Comment: Speci men Type: BLOOD SPECIMENOrdering Facility: [facility] Address: [address] [place] [address] Performed By: #### 5 7021-8 ####VILLARREAL LABORATORYCLIA [id number] [address] [place] Immature granulocytes/100 WBC (Bld) 1.6 % Normal [facility] Comment on above: Order Comment: Speci men Type: BLOOD SPECIMENOrdering Facility: [facility] Address: [address] [place] [address] Performed By: #### 5 7021-8 ####VILLARREAL LABORATORYCLIA [id number] [place] [address] [place] Lymphocytes (Bld) [#/Vol] 0.92 10*3/uL Low 1.00-4.00 [facility] Comment on above: Order Comment: Speci men Type: BLOOD SPECIMENOrdering Facility: [facility] Address: [address] [place] [address] Performed By: #### 5 7021-8 ####VILLARREAL LABORATORYCLIA [id number] [address] [place] [facility] Lymphocytes/100 WBC (Bld) 6.1 % Normal [facility] Comment on above: Order Comment: Speci men Type: BLOOD SPECIMENOrdering Facility: [facility] Address: [address] [place] [address] Performed By: #### 5 7021-8 ####VILLARREAL LABORATORYCLIA [id number] [address] [place] MCH (RBC) [Entitic mass] 28.3 pg Normal 26.0-34.0 [facility] Comment on above: Order Comment: Speci men Type: BLOOD SPECIMENOrdering Facility: [facility] Address: [address] [place] [address] Performed By: #### 5 7021-8 ####VILLARREAL LABORATORYCLIA [id number] [address] [place] MCHC (RBC) [Mass/Vol] 33.1 g/dL Normal 30.5-36.0 [facility] Comment on above: Order Comment: Speci men Type: BLOOD SPECIMENOrdering Facility: [facility] Address: [address] [place] [address] Performed By: #### 5 7021-8 ####VILLARREAL LABORATORYCLIA [id number] [place] [address] [place] MCV (RBC) [Entitic vol] 85.4 fL Normal 80.0-100.[address] [facility] Comment on above: Order Comment: Speci men Type: BLOOD SPECIMENOrdering Facility: [facility] Address: [address] [place] [address] Performed By: #### 5 7021-8 ####VILLARREAL LABORATORYCLIA [id number] [place] [address] [place] Monocytes (Bld) [#/Vol] 0.99 10*3/uL High <0.87 [facility] Comment on above: Order Comment: Speci men Type: BLOOD SPECIMENOrdering Facility: [facility] Address: [address] [place] [address] Performed By: #### 5 7021-8 ####VILLARREAL LABORATORYCLIA [id number] [address] [place] Monocytes/100 WBC (Bld) 6.6 % Normal [facility] Comment on above: Order Comment: Speci men Type: BLOOD SPECIMENOrdering Facility: [facility] Address: [address] [place] [address] Performed By: #### 5 7021-8 ####VILLARREAL LABORATORYCLIA [id number] [place] [address] [place] Neutrophils (Bld) [#/Vol] 12.52 10*3/uL High 1.45-7.50 [facility] Comment on above: Order Comment: Speci men Type: BLOOD SPECIMENOrdering Facility: [facility] Address: [address] [place] [address] Performed By: #### 5 7021-8 ####VILLARREAL LABORATORYCLIA [id number] [address] [place] Neutrophils/100 WBC (Bld) 83.6 % Normal [facility] Comment on above: Order Comment: Speci men Type: BLOOD SPECIMENOrdering Facility: [facility] Address: [address] [place] [address] Performed By: #### 5 7021-8 ####VILLARREAL LABORATORYCLIA [id number] [place] [address] [place] Nucleated RBC (Bld) [#/Vol] 10*3/uL Normal <0.01 [facility] Comment on above: Order Comment: Speci men Type: BLOOD SPECIMENOrdering Facility: [facility] Address: [address] [place] [address] Performed By: #### 5 7021-8 ####VILLARREAL LABORATORYCLIA [id number] [address] Nucleated RBC/100 WBC (Bld) [Ratio] 0.0 /100 WBC Normal [facility] Comment on above: Order Comment: Speci men Type: BLOOD SPECIMENOrdering Facility: [facility] Address: [address] [place] [address] Performed By: #### 5 7021-8 ####VILLARREAL LABORATORYCLIA [id number] [place] [address] [place] Platelet mean volume (Bld) [Entitic vol] 8.6 fL Low 9.0-12.7 [facility] Comment on above: Order Comment: Speci men Type: BLOOD SPECIMENOrdering Facility: [facility] Address: [address] [place] [address] Performed By: #### 5 7021-8 ####VILLARREAL LABORATORYCLIA [id number] [place] [address] [place] Platelets (Bld) [#/Vol] 436 10*3/uL High 150-400 [facility] Comment on above: Order Comment: Speci men Type: BLOOD SPECIMENOrdering Facility: [facility] Address: [address] [place] [address] Performed By: #### 5 7021-8 ####VILLARREAL LABORATORYCLIA [id number] [place] [address] [place] RBC (Bld) [#/Vol] 3.50 10*6/uL Low 3.90-5.20 [facility] Comment on above: Order Comment: Speci men Type: BLOOD SPECIMENOrdering Facility: [facility] Address: [facility] [place] [address] Performed By: #### 5 7021-8 ####MASON LABORATORYCLIA [id number] [address] [place] WBC (Bld) [#/Vol] 14.99 10*3/uL High 3.70-11.[address] [facility] Comment on above: Order Comment: Speci men Type: BLOOD SPECIMENOrdering Facility: [facility] Address: [address] [place] [address] Performed By: #### 5 7021-8 ####MASON LABORATORYCLIA [id number] [address] CONSULT PROGon 11-30-2024 CONSULT PROG Normal [facility] CONSULT PROG Normal [facility] Magnesium SerPl-mCncon 11-30 Magnesium [Mass/Vol] 1.6 mg/dL Low 1.7-2.[address] [facility] Comment on above: Order Comment: Speci men Type: BLOOD SPECIMENOrdering Facility: [facility] Address: [address] [place] [address] Performed By: #### 2 4321-2, 50783-7 ####MASON LABORATORYCLIA [id number] [address] Urinalysis complete panel (U )on 11-30-2024 Bacteria LM.HPF (Urine sed) [#/Area] Few Abnormal None Seen [facility] Comment on above: Order Comment: Speci men Type: URINE SPECIMENOrdering Facility: [facility] Address: [address] [place] [address] Performed By: #### 2 4356-8 ####MASON LABORATORYCLIA [id number] [address] Bilirubin Ql (U) Negative Normal Negative [facility] Comment on above: Order Comment: Speci men Type: URINE SPECIMENOrdering Facility: [facility] Address: [address] [place] [address] Performed By: #### 2 4356-8 ####VILLARREAL LABORATORYCLIA [id number] [address] Clarity (Unsp spec) Clear Normal Clear [facility] Comment on above: Order Comment: Speci men Type: URINE SPECIMENOrdering Facility: [facility] Address: [address] [place] [address] Performed By: #### 2 4356-8 ####VILLARREAL LABORATORYCLIA [id number] [address] Color (U) Yellow Normal Yellow [facility] Comment on above: Order Comment: Speci men Type: URINE SPECIMENOrdering Facility: [facility] Address: [address] [place] [address] Result Comment: Urin e received in non-preservative tube. Interpret results with caution. To ensure optimal and accurate results, transfer urine to the BD Vacutainer Plus urine preservative tube. Performed By: #### 2 4356-8 ####VILLARREAL LABORATORYCLIA [id number] [address] Epithelial cells LM.HPF (Urine sed) [#/Area] Few Normal [facility] Comment on above: Order Comment: Speci men Type: URINE SPECIMENOrdering Facility: [facility] Address: [address] [place] [address] Performed By: #### 2 4356-8 ####VILLARREAL LABORATORYCLIA [id number] [address] Glucose Test strip (U) [Mass/Vol] 1+ Abnormal Negative [facility] Comment on above: Order Comment: Speci men Type: URINE SPECIMENOrdering Facility: [facility] Address: [address] [place] [address] Performed By: #### 2 4356-8 ####VILLARREAL LABORATORYCLIA [id number] [address] Hemoglobin Ql (U) Negative Normal Negative [facility] Comment on above: Order Comment: Speci men Type: URINE SPECIMENOrdering Facility: [facility] Address: [address] [place] [address] Performed By: #### 2 4356-8 ####VILLARREAL LABORATORYCLIA [id number] [address] Ketones Ql (U) Trace Abnormal Negative [facility] Comment on above: Order Comment: Speci men Type: URINE SPECIMENOrdering Facility: [facility] Address: [address] [place] [address] Performed By: #### 2 4356-8 ####VILLARREAL LABORATORYCLIA [id number] [address] Leukocyte esterase Test strip Ql (U) Trace Abnormal Negative [facility] Comment on above: Order Comment: Speci men Type: URINE SPECIMENOrdering Facility: [facility] Address: [address] [place] [address] Performed By: #### 2 4356-8 ####VILLARREAL LABORATORYCLIA [id number] [address] Nitrite Ql (U) Negative Normal Negative [facility] Comment on above: Order Comment: Speci men Type: URINE SPECIMENOrdering Facility: [facility] Address: [address] [place] [address] Performed By: #### 2 4356-8 ####VILLARREAL LABORATORYCLIA [id number] [address] pH (U) 6.5 [pH] Normal 5.0-8.0 [facility] Comment on above: Order Comment: Speci men Type: URINE SPECIMENOrdering Facility: [facility] Address: [address] [place] [address] Performed By: #### 2 4356-8 ####VILLARREAL LABORATORYCLIA [id number] [address] [place] Protein (U) [Mass/Vol] 1+ Abnormal Negative [facility] Comment on above: Order Comment: Speci men Type: URINE SPECIMENOrdering Facility: [facility] Address: [address] [place] [address] Performed By: #### 2 4356-8 ####VILLARREAL LABORATORYCLIA [id number] [place] [address] RBC LM.HPF (Urine sed) [#/Area] 0-3 /HPF Normal 0-3 /HPF [facility] Comment on above: Order Comment: Speci men Type: URINE SPECIMENOrdering Facility: [facility] Address: [address] [place] [address] Performed By: #### 2 4356-8 ####MASON LABORATORYCLIA [id number] [address] Specific gravity (U) [Rel density] 1.010 Normal 1.005-1.030 [facility] Comment on above: Order Comment: Speci men Type: URINE SPECIMENOrdering Facility: [facility] Address: [address] [place] [address] Performed By: #### 2 4356-8 ####MASON LABORATORYCLIA [id number] [address] Urobilinogen Ql (U) 0.2 EU/dL Normal 0.2-1.0 EU/dL [facility] Comment on above: Order Comment: Speci men Type: URINE SPECIMENOrdering Facility: [facility] Address: [address] [place] [address] Performed By: #### 2 4356-8 ####VILLARREAL LABORATORYCLIA [id number] [address] WBC LM.HPF (Urine sed) [#/Area] 0-5 /HPF Normal 0-5 /HPF [facility] Comment on above: Order Comment: Speci men Type: URINE SPECIMENOrdering Facility: [facility] Address: [address] [place] [address] Performed By: #### 2 4356-8 ####VILLARREAL LABORATORYCLIA [id number] [address] Yeast.budding LM.HPF (Urine sed) [#/Area] Few Abnormal None Seen [facility] Comment on above: Order Comment: Speci men Type: URINE SPECIMENOrdering Facility: [facility] Address: [address] [place] [address] Performed By: #### 2 4356-8 ####VILLARREAL LABORATORYCLIA [id number] [place] [address] [place] XR CHEST 1V FRONTAL PORTon 0 11-30-2024 XR CHEST 1V FRONTAL PORT Normal [facility] Basic metabolic 2000 panelon 11-29-2024 Anion gap [Moles/Vol] 13 mmol/L Normal 8-15 [facility] Comment on above: Order Comment: Speci men Type: BLOOD SPECIMENOrdering Facility: [facility] Address: [address] [place] [address] Performed By: #### 2 432-2, ####VILLARREAL LABORATORYCLIA [id number] [place] [address] [place] Calcium [Mass/Vol] 8.8 mg/dL Normal 8.5-10.2 [facility] Comment on above: Order Comment: Speci men Type: BLOOD SPECIMENOrdering Facility: [facility] Address: [address] [place] [address] Performed By: #### 2 432-2, ####VILLARREAL LABORATORYCLIA [id number] [place] [address] [place] Chloride [Moles/Vol] 95 mmol/L Low 98-[address] [facility] Comment on above: Order Comment: Speci men Type: BLOOD SPECIMENOrdering Facility: [facility] Address: [address] [place] [address] Performed By: #### 2 4321-2, ####VILLARREAL LABORATORYCLIA [id number] [place] [id number] [place] CO2 [Moles/Vol] 25 mmol/L Normal 22-30 [facility] Comment on above: Order Comment: Speci men Type: BLOOD SPECIMENOrdering Facility: [facility] Address: [address] [place], [place] [address] Performed By: #### 2 432-2, ####VILLARREAL LABORATORYCLIA [id number] [place] [address] [place] Creatinine [Mass/Vol] 0.80 mg/dL Normal 0.58-0.96 [facility] Comment on above: Order Comment: Speci men Type: BLOOD SPECIMENOrdering Facility: [facility] Address: [address] [place] [address] Performed By: #### 2 432-2, ####VILLARREAL LABORATORYCLIA [id number] [place] [address] [place] Creatinine and Glomerular filtration rate.predicted panel (S/P/Bld) 71 mL/min/1.73m??? Normal >=60 [facility] Comment on above: Order Comment: Fan meade Type: BLOOD SPECIMENOrdering Facility: [facility] Address: [address] [place] [address] Result Comment: Hilda mated Glomerular Filtration Rate [...] Performed By: #### 2 432-, ####VILLARREAL LABORATORYCLIA [id number] [place] [address] [place] Glucose [Mass/Vol] 287 mg/dL High 74-99 [facility] Comment on above: Order Comment: Fan meade Type: BLOOD SPECIMENOrdering Facility: [facility] Address: [address] [place] [address] Result Comment: The [place] [employer] (ADA) provides guidance for cutoff [...] Standards of Medical Care in Diabetes 2016, [place] [employer]. Diabetes Care. 2016.39(Suppl 1). Performed By: #### 2 432-2, ####VILLARREAL LABORATORYCLIA [id number] [place] [address] [place] Potassium [Moles/Vol] 4.1 mmol/L Normal 3.7-5.1 [facility] Comment on above: Order Comment: Speci men Type: BLOOD SPECIMENOrdering Facility: [facility] Address: [address] [place] [address] Performed By: #### 2 4321-2, ####VILLARREAL LABORATORYCLIA [id number] [place] [id number] [place] Sodium [Moles/Vol] 133 mmol/L Low 136-144 [facility] Comment on above: Order Comment: Speci men Type: BLOOD SPECIMENOrdering Facility: [facility] Address: [address] [place] [address] Performed By: #### 2 4321-2, ####VILLARREAL LABORATORYCLIA [id number] [place] [address] [place] Urea nitrogen [Mass/Vol] 30 mg/dL High 7-21 [facility] Comment on above: Order Comment: Speci men Type: BLOOD SPECIMENOrdering Facility: [facility] Address: [address] [place] [address] Performed By: #### 2 4321-2, ####VILLARREAL LABORATORYCLIA [id number] [place] [id number] [place] CASE MANAGEMon 11-29-2024 CASE MANAGEM Normal [facility] CASE MANAGEM Normal [facility] CBC panel Auto (Bld)on 11-29 Erythrocyte distribution width (RBC) [Ratio] 15.2 % High 11.5-15.0 [facility] Comment on above: Order Comment: Speci men Type: BLOOD SPECIMENOrdering Facility: [facility] Address: [address] [place] [address] Performed By: #### 5 8410-2 ####VILLARREAL LABORATORYCLIA [id number] [place] [address] [place] Hematocrit (Bld) [Volume fraction] 27.9 % Low 36.0-46.0 [facility] Comment on above: Order Comment: Speci men Type: BLOOD SPECIMENOrdering Facility: [facility] Address: [address] [place] [address] Performed By: #### 5 8410-2 ####VILLARREAL LABORATORYCLIA [id number] [address] [place] Hemoglobin (Bld) [Mass/Vol] 9.3 g/dL Low 11.5-15.5 [facility] Comment on above: Order Comment: Speci men Type: BLOOD SPECIMENOrdering Facility: [facility] Address: [address] [place] [address] Performed By: #### 5 8410-2 ####VILLARREAL LABORATORYCLIA [id number] [address] [place] [facility] MCH (RBC) [Entitic mass] 28.2 pg Normal 26.0-34.0 [facility] Comment on above: Order Comment: Speci men Type: BLOOD SPECIMENOrdering Facility: [facility] Address: [address] [place] [address] Performed By: #### 5 8410-2 ####VILLARREAL LABORATORYCLIA [id number] [address] MCHC (RBC) [Mass/Vol] 33.3 g/dL Normal 30.5-36.0 [facility] Comment on above: Order Comment: Speci men Type: BLOOD SPECIMENOrdering Facility: [facility] Address: [address] [place] [address] Performed By: #### 5 8410-2 ####VILLARREAL LABORATORYCLIA [id number] [address] MCV (RBC) [Entitic vol] 84.5 fL Normal 80.0-100.[address] [facility] Comment on above: Order Comment: Speci men Type: BLOOD SPECIMENOrdering Facility: [facility] Address: [address] [place] [address] Performed By: #### 5 8410-2 ####VILLARREAL LABORATORYCLIA [id number] [address] Nucleated RBC (Bld) [#/Vol] 10*3/uL Normal <0.01 [facility] Comment on above: Order Comment: Speci men Type: BLOOD SPECIMENOrdering Facility: [facility] Address: [facility] [place] [address] Performed By: #### 5 8410-2 ####VILLARREAL LABORATORYCLIA [id number] [place] [address] [place] Platelet mean volume (Bld) [Entitic vol] 8.8 fL Low 9.0-12.7 [facility] Comment on above: Order Comment: Speci men Type: BLOOD SPECIMENOrdering Facility: [facility] Address: [address] [place] [address] Performed By: #### 5 8410-2 ####VILLARREAL LABORATORYCLIA [id number] [place] [address] [place] Platelets (Bld) [#/Vol] 425 10*3/uL High 150-400 [facility] Comment on above: Order Comment: Speci men Type: BLOOD SPECIMENOrdering Facility: [facility] Address: [address] [place] [address] Performed By: #### 5 8410-2 ####VILLARREAL LABORATORYCLIA [id number] [place] [address] [place] RBC (Bld) [#/Vol] 3.30 10*6/uL Low 3.90-5.20 [facility] Comment on above: Order Comment: Speci men Type: BLOOD SPECIMENOrdering Facility: [facility] Address: [address] [place] [address] Performed By: #### 5 8410-2 ####VILLARREAL LABORATORYCLIA [id number] [place] [address] [place] WBC (Bld) [#/Vol] 12.17 10*3/uL High 3.70-11.[address] [facility] Comment on above: Order Comment: Speci men Type: BLOOD SPECIMENOrdering Facility: [facility] Address: [address] [place] [address] Performed By: #### 5 8410-2 ####VILLARREAL LABORATORYCLIA [id number] [place] [address] [place] CONSULT PROGon 11-29-2024 CONSULT PROG Normal [facility] CONSULT PROG Normal [facility] Magnesium SerPl-mCncon 11-29 Magnesium [Mass/Vol] 1.4 mg/dL Low 1.7-2.[address] [facility] Comment on above: Order Comment: Speci men Type: BLOOD SPECIMENOrdering Facility: [facility] Address: [address] [place] [address] Performed By: #### 2 4321-2, ####VILLARREAL LABORATORYCLIA [id number] [place] [address] [place] Basic metabolic 2000 panelon 11-28-2024 Anion gap [Moles/Vol] 14 mmol/L Normal 8-15 [facility] Comment on above: Order Comment: Speci men Type: BLOOD SPECIMENOrdering Facility: [facility] Address: [address] [place] [address] Performed By: #### 2 4321-2, , 2776-11 ####VILLARREAL LABORATORYCLIA [id number] [place] [address] [place] Calcium [Mass/Vol] 9.4 mg/dL Normal 8.5-10.2 [facility] Comment on above: Order Comment: Speci men Type: BLOOD SPECIMENOrdering Facility: [facility] Address: [address] [place] [address] Performed By: #### 2 4321-2, , 2776-11 ####VILLARREAL LABORATORYCLIA [id number] [place] [address] [place] Chloride [Moles/Vol] 96 mmol/L Low 98-[address] [facility] Comment on above: Order Comment: Speci men Type: BLOOD SPECIMENOrdering Facility: [facility] Address: [address] [place] [address] Performed By: #### 2 4321-2, , 2776-11 ####VILLARREAL LABORATORYCLIA [id number] [place] [address] [place] CO2 [Moles/Vol] 25 mmol/L Normal 22-30 [facility] Comment on above: Order Comment: Fan meade Type: BLOOD SPECIMENOrdering Facility: [facility] Address: [address] [place] [id number] Performed By: #### 2 4321-2, , 2776-11 ####MASON LABORATORYCLIA [id number] [place] [address] [place] Creatinine [Mass/Vol] 0.80 mg/dL Normal 0.58-0.96 [facility] Comment on above: Order Comment: Specleroy men Type: BLOOD SPECIMENOrdering Facility: [facility] Address: [address] [place] [address] Performed By: #### 2 4321-2, , 2776-11 ####MASON LABORATORYCLIA [id number] [address] STATES OF [facility] Creatinine and Glomerular filtration rate.predicted panel (S/P/Bld) 71 mL/min/1.73m??? Normal >=60 [facility] Comment on above: Order Comment: Fan meade Type: BLOOD SPECIMENOrdering Facility: [facility] Address: [address] [place] [address] Result Comment: Hilda mated Glomerular Filtration Rate [...] Performed By: #### 2 4321-2, , 2776-11 ####MASON LABORATORYCLIA [id number] [place] [address] [place] Glucose [Mass/Vol] 149 mg/dL High 74-99 [facility] Comment on above: Order Comment: Fan halina Type: BLOOD SPECIMENOrdering Facility: [facility] Address: [address] [place] [address] Result Comment: The [place] [employer] (ADA) provides guidance for cutoff [...] Standards of Medical Care in Diabetes 2016, [employer] [employer]. Diabetes Care. 2016.39(Suppl 1). Performed By: #### 2 4321-2, , 2776- ####VILLARREAL LABORATORYCLIA [id number] [place] [address] [place] Potassium [Moles/Vol] 4.6 mmol/L Normal 3.7-5.1 [facility] Comment on above: Order Comment: Fan meade Type: BLOOD SPECIMENOrdering Facility: [facility] Address: [address] [place] [address] Performed By: #### 2 4321-2, , 2776-11 ####VILLARREAL LABORATORYCLIA [id number] [address] STATES OF [facility] Sodium [Moles/Vol] 135 mmol/L Low 136-144 [facility] Comment on above: Order Comment: Fan meade Type: BLOOD SPECIMENOrdering Facility: [facility] Address: [address] [place] [address] Performed By: #### 2 4321-2, , 2776-11 ####VILLARREAL LABORATORYCLIA [id number] [place] [id number] [place] Urea nitrogen [Mass/Vol] 28 mg/dL High 7-21 [facility] Comment on above: Order Comment: Fan meade Type: BLOOD SPECIMENOrdering Facility: [facility] Address: [facility] [place] [address] Performed By: #### 2 4321-2, , 2776-11 ####VILLARREAL LABORATORYCLIA [id number] [place] [id number] [place] [facility] CASE MANAGEM Normal [facility] CBC W Auto Differential pane l (Bld)on 11-28-2024 Basophils (Bld) [#/Vol] 0.05 10*3/uL Normal <0.11 [facility] Comment on above: Order Comment: Speci men Type: BLOOD SPECIMENOrdering Facility: [facility] Address: [address] [place] [address] Performed By: #### 5 7021-8 ####VILLARREAL LABORATORYCLIA [id number] [place] [address] [place] Basophils/100 WBC (Bld) 0.5 % Normal [facility] Comment on above: Order Comment: Speci men Type: BLOOD SPECIMENOrdering Facility: [facility] Address: [address] [place] [address] Performed By: #### 5 7021-8 ####VILLARREAL LABORATORYCLIA [id number] [address] [place] Differential cell count method Nom (Bld) Auto Normal [facility] Comment on above: Order Comment: Speci men Type: BLOOD SPECIMENOrdering Facility: [facility] Address: [address] [place] [address] Performed By: #### 5 7021-8 ####VILLARREAL LABORATORYCLIA [id number] [place] [address] [place] Eosinophils (Bld) [#/Vol] 0.43 10*3/uL Normal <0.46 [facility] Comment on above: Order Comment: Speci men Type: BLOOD SPECIMENOrdering Facility: [facility] Address: [address] [place] [address] Performed By: #### 5 7021-8 ####VILLARREAL LABORATORYCLIA [id number] [place] [address] [place] Eosinophils/100 WBC (Bld) 3.9 % Normal [facility] Comment on above: Order Comment: Speci men Type: BLOOD SPECIMENOrdering Facility: [facility] Address: [address] [place] [address] Performed By: #### 5 7021-8 ####VILLARREAL LABORATORYCLIA [id number] [address] [place] Erythrocyte distribution width (RBC) [Ratio] 15.3 % High 11.5-15.0 [facility] Comment on above: Order Comment: Speci men Type: BLOOD SPECIMENOrdering Facility: [facility] Address: [address] [place] [address] Performed By: #### 5 7021-8 ####VILLARREAL LABORATORYCLIA [id number] [address] [place] Hematocrit (Bld) [Volume fraction] 32.2 % Low 36.0-46.0 [facility] Comment on above: Order Comment: Speci men Type: BLOOD SPECIMENOrdering Facility: [facility] Address: [address] [place] [address] Performed By: #### 5 7021-8 ####VILLARREAL LABORATORYCLIA [id number] [address] [place] Hemoglobin (Bld) [Mass/Vol] 10.4 g/dL Low 11.5-15.5 [facility] Comment on above: Order Comment: Speci men Type: BLOOD SPECIMENOrdering Facility: [facility] Address: [address] [place] [address] Performed By: #### 5 7021-8 ####VILLARREAL LABORATORYCLIA [id number] [address] [place] Immature granulocytes (Bld) [#/Vol] 0.17 10*3/uL High <0.10 [facility] Comment on above: Order Comment: Speci men Type: BLOOD SPECIMENOrdering Facility: [facility] Address: [address] [place] [address] Performed By: #### 5 7021-8 ####VILLARREAL LABORATORYCLIA [id number] [address] Immature granulocytes/100 WBC (Bld) 1.6 % Normal [facility] Comment on above: Order Comment: Speci men Type: BLOOD SPECIMENOrdering Facility: [facility] Address: [address] [place] [address] Performed By: #### 5 7021-8 ####VILLARREAL LABORATORYCLIA [id number] [address] [place] Lymphocytes (Bld) [#/Vol] 0.95 10*3/uL Low 1.00-4.00 [facility] Comment on above: Order Comment: Speci men Type: BLOOD SPECIMENOrdering Facility: [facility] Address: [address] [place] [address] Performed By: #### 5 7021-8 ####VILLARREAL LABORATORYCLIA [id number] [address] Lymphocytes/100 WBC (Bld) 8.7 % Normal [facility] Comment on above: Order Comment: Speci men Type: BLOOD SPECIMENOrdering Facility: [facility] Address: [address] [place] [address] Performed By: #### 5 7021-8 ####VILLARREAL LABORATORYCLIA [id number] [address] MCH (RBC) [Entitic mass] 27.7 pg Normal 26.0-34.0 [facility] Comment on above: Order Comment: Speci men Type: BLOOD SPECIMENOrdering Facility: [facility] Address: [address] [place] [address] Performed By: #### 5 7021-8 ####VILLARREAL LABORATORYCLIA [id number] [address] MCHC (RBC) [Mass/Vol] 32.3 g/dL Normal 30.5-36.0 [facility] Comment on above: Order Comment: Speci men Type: BLOOD SPECIMENOrdering Facility: [facility] Address: [address] [place] [address] Performed By: #### 5 7021-8 ####VILLARREAL LABORATORYCLIA [id number] [address] MCV (RBC) [Entitic vol] 85.6 fL Normal 80.0-100.[address] [facility] Comment on above: Order Comment: Speci men Type: BLOOD SPECIMENOrdering Facility: [facility] Address: [address] [place] [address] Performed By: #### 5 7021-8 ####VILLARREAL LABORATORYCLIA [id number] [place] [address] [place] Monocytes (Bld) [#/Vol] 0.89 10*3/uL High <0.87 [facility] Comment on above: Order Comment: Speci men Type: BLOOD SPECIMENOrdering Facility: [facility] Address: [address] [place] [address] Performed By: #### 5 7021-8 ####VILLARREAL LABORATORYCLIA [id number] [address] [place] Monocytes/100 WBC (Bld) 8.1 % Normal [facility] Comment on above: Order Comment: Speci men Type: BLOOD SPECIMENOrdering Facility: [facility] Address: [address] [place] [address] Performed By: #### 5 7021-8 ####VILLARREAL LABORATORYCLIA [id number] [place] [address] [place] Neutrophils (Bld) [#/Vol] 8.45 10*3/uL High 1.45-7.50 [facility] Comment on above: Order Comment: Speci men Type: BLOOD SPECIMENOrdering Facility: [facility] Address: [address] [place] [address] Performed By: #### 5 7021-8 ####VILLARREAL LABORATORYCLIA [id number] [address] [place] Neutrophils/100 WBC (Bld) 77.2 % Normal [facility] Comment on above: Order Comment: Speci men Type: BLOOD SPECIMENOrdering Facility: [facility] Address: [address] [place] [address] Performed By: #### 5 7021-8 ####VILLARREAL LABORATORYCLIA [id number] [place] [address] [place] Nucleated RBC (Bld) [#/Vol] 10*3/uL Normal <0.01 [facility] Comment on above: Order Comment: Speci men Type: BLOOD SPECIMENOrdering Facility: [facility] Address: [address] [place] [address] Performed By: #### 5 7021-8 ####VILLARREAL LABORATORYCLIA [id number] [address] [place] Nucleated RBC/100 WBC (Bld) [Ratio] 0.0 /100 WBC Normal [facility] Comment on above: Order Comment: Speci men Type: BLOOD SPECIMENOrdering Facility: [facility] Address: [address] [place] [address] Performed By: #### 5 7021-8 ####VILLARREAL LABORATORYCLIA [id number] [address] [place] Platelet mean volume (Bld) [Entitic vol] 9.0 fL Normal 9.0-12.7 [facility] Comment on above: Order Comment: Speci men Type: BLOOD SPECIMENOrdering Facility: [facility] Address: [address] [place] [address] Performed By: #### 5 7021-8 ####VILLARREAL LABORATORYCLIA [id number] [address] [place] Platelets (Bld) [#/Vol] 413 10*3/uL High 150-400 [facility] Comment on above: Order Comment: Speci men Type: BLOOD SPECIMENOrdering Facility: [facility] Address: [facility] [place] [address] Performed By: #### 5 7021-8 ####VILLARREAL LABORATORYCLIA [id number] [address] [place] RBC (Bld) [#/Vol] 3.76 10*6/uL Low 3.90-5.20 [facility] Comment on above: Order Comment: Speci men Type: BLOOD SPECIMENOrdering Facility: [facility] Address: [address] [place] [address] Performed By: #### 5 7021-8 ####VILLARREAL LABORATORYCLIA [id number] [address] [place] WBC (Bld) [#/Vol] 10.94 10*3/uL Normal 3.70-11.[address] [facility] Comment on above: Order Comment: Speci men Type: BLOOD SPECIMENOrdering Facility: [facility] Address: [facility] [place] [address] Performed By: #### 5 7021-8 ####VILLARREAL LABORATORYCLIA [id number] [place] [id number] [place] CONSULT PROGon 11-28-2024 CONSULT PROG Normal [facility] CONSULT PROG Normal [facility] CONSULT PROG Normal [facility] Magnesium SerPl-mCncon 11-28 Magnesium [Mass/Vol] 1.9 mg/dL Normal 1.7-2.[address] [facility] Comment on above: Order Comment: Speci men Type: BLOOD SPECIMENOrdering Facility: [facility] Address: [facility] [place] [address] Performed By: #### 2 4321-2, 46150-0, 2777-1 ####VILLARREAL LABORATORYCLIA [id number] [address] [place] Phosphate SerPl-mCncon 11-28 Phosphate [Mass/Vol] 3.4 mg/dL Normal 2.7-4.[address] [facility] Comment on above: Order Comment: Speci men Type: BLOOD SPECIMENOrdering Facility: [facility] Address: [facility] [place] [address] Performed By: #### 2 4321-2, 99493-2, 2777-1 ####VILLARREAL LABORATORYCLIA [id number] [address] [place] THERAPY NTon 11-28-2024 THERAPY NT [facility] THERAPY NT Normal [facility] ALLIED HEALTHon 11-27-2024 ALLIED HEALTH [facility] ANES POSTPROC EVALon 025 ANES POSTPROC EVAL [facility] ANES PRE-OPon 11-27-2024 ANES PRE-OP [facility] Bacteria Spec Anaerobe Culto n 11-27-2024 Bacteria identified Anaer cx Nom (Unsp spec) Negative [facility] Comment on above: Performed By: #### 6 35-3, 6462-6 ####[facility] LABCLIA [id number] [place] [id number] [place] Bacteria Wnd Culton 11-27-19 25 Bacteria identified Cx Nom (Wound) Abnormal [facility] Comment on above: Performed By: #### 6 35-3, 6462-6 ####[facility] LABCLIA [id number] [place] [id number] [place] Basic metabolic 2000 panelon 11-27-2024 Anion gap [Moles/Vol] 13 mmol/L Normal 8-15 [facility] Comment on above: Order Comment: Speci men Type: BLOOD SPECIMENOrdering Facility: [facility] Address: [address] [place] [address] Performed By: #### 2 4321-2, , 2776-11 ####MASON LABORATORYCLIA [id number] [place] [address] [place] Calcium [Mass/Vol] 9.0 mg/dL Normal 8.5-10.2 [facility] Comment on above: Order Comment: Speci men Type: BLOOD SPECIMENOrdering Facility: [facility] Address: [address] [place] [address] Performed By: #### 2 4321-2, , 2776-11 ####VILLARREAL LABORATORYCLIA [id number] [place] [address] [place] Chloride [Moles/Vol] 94 mmol/L Low 98-[address] [facility] Comment on above: Order Comment: Speci men Type: BLOOD SPECIMENOrdering Facility: [facility] Address: [address] [place] [address] Performed By: #### 2 4321-2, , 2776-11 ####MASON LABORATORYCLIA [id number] [place] [address] [place] CO2 [Moles/Vol] 25 mmol/L Normal 22-30 [facility] Comment on above: Order Comment: Speci men Type: BLOOD SPECIMENOrdering Facility: [facility] Address: [address] [place] [address] Performed By: #### 2 4321-2, , 2776-11 ####VILLARREAL LABORATORYCLIA [id number] [place] [address] [place] Creatinine [Mass/Vol] 0.76 mg/dL Normal 0.58-0.96 [facility] Comment on above: Order Comment: Fan meade Type: BLOOD SPECIMENOrdering Facility: [facility] Address: [address] [place] [address] Performed By: #### 2 4321-2, , 2776-11 ####MASON LABORATORYCLIA [id number] [place] [address] [place] Creatinine and Glomerular filtration rate.predicted panel (S/P/Bld) 75 mL/min/1.73m??? Normal >=60 [facility] Comment on above: Order Comment: Fan meade Type: BLOOD SPECIMENOrdering Facility: [facility] Address: [address] [place] [address] Result Comment: Hilda mated Glomerular Filtration Rate [...] #### 2 4321-2, , 2776-11 ####VILLARREAL LABORATORYCLIA [id number] [place] [address] [place] Glucose [Mass/Vol] 251 mg/dL High 74-99 [facility] Comment on above: Order Comment: Fan meade Type: BLOOD SPECIMENOrdering Facility: [facility] Address: [address] [place] [address] Result Comment: The [place] [employer] (ADA) provides guidance for cutoff [...] Standards of Medical Care in Diabetes 2016, [place] [employer]. Diabetes Care. 2016.39(Suppl 1). Performed By: #### 2 4321-2, , 2776-11 ####VILLARREAL LABORATORYCLIA [id number] [place] [address] [place] Potassium [Moles/Vol] 3.6 mmol/L Low 3.7-5.1 [facility] Comment on above: Order Comment: Fan meade Type: BLOOD SPECIMENOrdering Facility: [facility] Address: [address] [place] [address] Performed By: #### 2 4321-2, , 2776-11 ####VILLARREAL LABORATORYCLIA [id number] [address] STATES [facility] Sodium [Moles/Vol] 132 mmol/L Low 136-144 [facility] Comment on above: Order Comment: Fan meade Type: BLOOD SPECIMENOrdering Facility: [facility] Address: [address] [place] [address] Performed By: #### 2 4321-2, , 2776-11 ####VILLARREAL LABORATORYCLIA [id number] [address] [place] Urea nitrogen [Mass/Vol] 29 mg/dL High 7-21 [facility] Comment on above: Order Comment: Fan meade Type: BLOOD SPECIMENOrdering Facility: [facility] Address: [address] [place] [address] Performed By: #### 2 4321-2, , 2776-11 ####MASON LABORATORYCLIA [id number] [address] [place] CASE MANAGEMon 11-27-2024 CASE MANAGEM Normal [facility] CBC panel Auto (Bld)on 11-27 Erythrocyte distribution width (RBC) [Ratio] 15.1 % High 11.5-15.0 [facility] Comment on above: Order Comment: Speci men Type: BLOOD SPECIMENOrdering Facility: [facility] Address: [address] [place] [address] Performed By: #### 5 8410-2 ####VILLARREAL LABORATORYCLIA [id number] [address] Hematocrit (Bld) [Volume fraction] 29.3 % Low 36.0-46.0 [facility] Comment on above: Order Comment: Speci men Type: BLOOD SPECIMENOrdering Facility: [facility] Address: [address] [place] [address] Performed By: #### 5 8410-2 ####VILLARREAL LABORATORYCLIA [id number] [address] Hemoglobin (Bld) [Mass/Vol] 9.9 g/dL Low 11.5-15.5 [facility] Comment on above: Order Comment: Speci men Type: BLOOD SPECIMENOrdering Facility: [facility] Address: [address] [place] [address] Performed By: #### 5 8410-2 ####VILLARREAL LABORATORYCLIA [id number] [address] MCH (RBC) [Entitic mass] 28.2 pg Normal 26.0-34.0 [facility] Comment on above: Order Comment: Speci men Type: BLOOD SPECIMENOrdering Facility: [facility] Address: [address] [place] [address] Performed By: #### 5 8410-2 ####VILLARREAL LABORATORYCLIA [id number] [address] MCHC (RBC) [Mass/Vol] 33.8 g/dL Normal 30.5-36.0 [facility] Comment on above: Order Comment: Speci men Type: BLOOD SPECIMENOrdering Facility: [facility] Address: [address] [place] [address] Performed By: #### 5 8410-2 ####VILLARREAL LABORATORYCLIA [id number] [address] MCV (RBC) [Entitic vol] 83.5 fL Normal 80.0-100.[address] [facility] Comment on above: Order Comment: Speci men Type: BLOOD SPECIMENOrdering Facility: [facility] Address: [address] [facility] [place] [address] Performed By: #### 5 8410-2 ####VILLARREAL LABORATORYCLIA [id number] [place] [address] [place] Nucleated RBC (Bld) [#/Vol] 10*3/uL Normal <0.01 [facility] Comment on above: Order Comment: Speci men Type: BLOOD SPECIMENOrdering Facility: [facility] Address: [address] [place] [address] Performed By: #### 5 8410-2 ####VILLARREAL LABORATORYCLIA [id number] [place] [address] [place] Platelet mean volume (Bld) [Entitic vol] 9.1 fL Normal 9.0-12.7 [facility] Comment on above: Order Comment: Speci men Type: BLOOD SPECIMENOrdering Facility: [facility] Address: [address] [place] [address] Performed By: #### 5 8410-2 ####VILLARREAL LABORATORYCLIA [id number] [place] [address] [place] Platelets (Bld) [#/Vol] 383 10*3/uL Normal 150-400 [facility] Comment on above: Order Comment: Speci men Type: BLOOD SPECIMENOrdering Facility: [facility] Address: [address] [place] [address] Performed By: #### 5 8410-2 ####VILLARREAL LABORATORYCLIA [id number] [place] [address] [place] RBC (Bld) [#/Vol] 3.51 10*6/uL Low 3.90-5.20 [facility] Comment on above: Order Comment: Speci men Type: BLOOD SPECIMENOrdering Facility: [facility] [facility] Address: [address] [place] [address] Performed By: #### 5 8410-2 ####VILLARREAL LABORATORYCLIA [id number] [place] [address] [place] WBC (Bld) [#/Vol] 11.65 10*3/uL High 3.70-11.[address] [facility] Comment on above: Order Comment: Speci men Type: BLOOD SPECIMENOrdering Facility: [facility] Address: [address] [place] [address] Performed By: #### 5 8410-2 ####MASON LABORATORYCLIA [id number] [place] [id number] [facility] [place] CONSULT PROGon 11-27-2024 CONSULT PROG [facility]27 Magnesium [Mass/Vol] 1.6 mg/dL Low 1.7-2.[address] [facility] Comment on above: Order Comment: Speci men Type: BLOOD SPECIMENOrdering Facility: [facility] Address: [address] [place] [address] Performed By: #### 2 4321-2, 50090-6, 2777-1 ####MASON LABORATORYCLIA [id number] [address] [place] NUTRITIONon 11-27-2024 NUTRITION Normal [facility] OPERATIVE NOon 11-27-2024 OPERATIVE NO [facility] Phosphate SerPl-ncon 11-27 Phosphate [Mass/Vol] 3.7 mg/dL Normal 2.7-4.[address] [facility] Comment on above: Order Comment: Speci men Type: BLOOD SPECIMENOrdering Facility: [facility] Address: [address] [place] [address] Performed By: #### 2 4321-2, 06230-6, 2777-1 ####MASON LABORATORYCLIA [id number] [place] [id number] [facility] [place] THERAPY NTon 11-27-2024 THERAPY NT Normal [facility] US ABD RIGHT UPPER QUADRANTo n 11-27-2024 US ABD RIGHT UPPER QUADRANT Normal [facility] US ABD SPLEEN -NBon 11-27-19 US ABD SPLEEN -NB [facility] Basic metabolic 2000 panelon 11-26-2024 Anion gap [Moles/Vol] 10 mmol/L Normal 8-15 [facility] Comment on above: Order Comment: Speci men Type: BLOOD SPECIMENOrdering Facility: [facility] Address: [address] [place] [id number] Performed By: #### 2 4321-2, , 2776-11 ####VILLARREAL LABORATORYCLIA [id number] [place] [address] [place] Calcium [Mass/Vol] 9.2 mg/dL Normal 8.5-10.2 [facility] Comment on above: Order Comment: Speci men Type: BLOOD SPECIMENOrdering Facility: [facility] Address: [address] [facility] [place] [address] Performed By: #### 2 4321-2, , 2776-11 ####VILLARREAL LABORATORYCLIA [id number] [place] [address] [place] Chloride [Moles/Vol] 94 mmol/L Low 98-[address] [facility] Comment on above: Order Comment: Speci men Type: BLOOD SPECIMENOrdering Facility: [facility] Address: [address] [place] [address] Performed By: #### 2 4321-2, , 2776-11 ####VILLARREAL LABORATORYCLIA [id number] [place] [address] [place] CO2 [Moles/Vol] 28 mmol/L Normal 22-30 [facility] Comment on above: Order Comment: Speci men Type: BLOOD SPECIMENOrdering Facility: [facility] Address: [address] [facility] [place] [address] Performed By: #### 2 4321-2, , 2776-11 ####VILLARREAL LABORATORYCLIA [id number] [place] [address] [place] Creatinine [Mass/Vol] 0.98 mg/dL High 0.58-0.96 [facility] Comment on above: Order Comment: Speci men Type: BLOOD SPECIMENOrdering Facility: [facility] Address: [address] [facility] [place] [address] Performed By: #### 2 4321-2, , 2776-11 ####VILLARREAL LABORATORYCLIA [id number] [place] [address] [place] Creatinine and Glomerular filtration rate.predicted panel (S/P/Bld) 56 mL/min/1.73m??? Low >=60 [facility] Comment on above: Order Comment: Fan meade Type: BLOOD SPECIMENOrdering Facility: [facility] Address: [address] [place] [address] Result Comment: Hilda mated Glomerular Filtration Rate [...] actual GFR. Performed By: #### 2 4321-2, 13865-6, 2776-11 ####MASON LABORATORYCLIA [id number] [place] [address] [place] Glucose [Mass/Vol] 244 mg/dL High 74-99 [facility] Comment on above: Order Comment: Fan meade Type: BLOOD SPECIMENOrdering Facility: [facility] Address: [address] [place] [address] Result Comment: The [place] [employer] (ADA) provides guidance for cutoff [...] Standards of Medical Care in Diabetes 2016, [place] [employer]. Diabetes Care. 2016.39(Suppl 1). Performed By: #### 2 4321-2, 18147-7, 2776-11 ####MASON LABORATORYCLIA [id number] [place] [address] [place] Potassium [Moles/Vol] 4.4 mmol/L Normal 3.7-5.1 [facility] Comment on above: Order Comment: Speci men Type: BLOOD SPECIMENOrdering Facility: [facility] Address: [address] [place] [address] Performed By: #### 2 4321-2, 81149-5, 2776-11 ####VILLARREAL LABORATORYCLIA [id number] [place] [address] [place] Sodium [Moles/Vol] 132 mmol/L Low 136-144 [facility] Comment on above: Order Comment: Speci men Type: BLOOD SPECIMENOrdering Facility: [facility] Address: [address] [place] [address] Performed By: #### 2 4321-2, , 2776-11 ####MASON LABORATORYCLIA [id number] [place] [address] [place] Urea nitrogen [Mass/Vol] 37 mg/dL High 7-21 [facility] Comment on above: Order Comment: Speci men Type: BLOOD SPECIMENOrdering Facility: [facility] Address: [address] [place] [address] Performed By: #### 2 4321-2, , 2776-11 ####MASON LABORATORYCLIA [id number] [address] [place] CASE MANAGEMon 11-26-2024 CASE MANAGEM Normal [facility] CBC W Auto Differential pane l (Bld)on 11-26-2024 Basophils (Bld) [#/Vol] 0.04 10*3/uL Normal <0.11 [facility] Comment on above: Order Comment: Speci men Type: BLOOD SPECIMENOrdering Facility: [facility] Address: [address] [place] [address] Performed By: #### 5 7021-8 ####MASON LABORATORYCLIA [id number] [address] [place] Basophils/100 WBC (Bld) 0.4 % Normal [facility] Comment on above: Order Comment: Speci men Type: BLOOD SPECIMENOrdering Facility: [facility] Address: [address] [place] [address] Performed By: #### 5 7021-8 ####VILLARREAL LABORATORYCLIA [id number] [address] [place] Differential cell count method Nom (Bld) Auto Normal [facility] Comment on above: Order Comment: Speci men Type: BLOOD SPECIMENOrdering Facility: [facility] Address: [address] [place] [address] Performed By: #### 5 7021-8 ####VILLARREAL LABORATORYCLIA [id number] [place] [address] [place] Eosinophils (Bld) [#/Vol] 0.41 10*3/uL Normal <0.46 [facility] Comment on above: Order Comment: Speci men Type: BLOOD SPECIMENOrdering Facility: [facility] Address: [address] [place] [address] Performed By: #### 5 7021-8 ####VILLARREAL LABORATORYCLIA [id number] [address] Eosinophils/100 WBC (Bld) 3.9 % Normal [facility] Comment on above: Order Comment: Speci men Type: BLOOD SPECIMENOrdering Facility: [facility] Address: [address] [place] [address] Performed By: #### 5 7021-8 ####VILLARREAL LABORATORYCLIA [id number] [address] [place] Erythrocyte distribution width (RBC) [Ratio] 14.9 % Normal 11.5-15.0 [facility] Comment on above: Order Comment: Speci men Type: BLOOD SPECIMENOrdering Facility: [facility] Address: [address] [place] [address] Performed By: #### 5 7021-8 ####VILLARREAL LABORATORYCLIA [id number] [address] [place] Hematocrit (Bld) [Volume fraction] 30.0 % Low 36.0-46.0 [facility] Comment on above: Order Comment: Speci men Type: BLOOD SPECIMENOrdering Facility: [facility] Address: [address] [place] [address] Performed By: #### 5 7021-8 ####VILLARREAL LABORATORYCLIA [id number] [place] [address] [place] Hemoglobin (Bld) [Mass/Vol] 10.1 g/dL Low 11.5-15.5 [facility] Comment on above: Order Comment: Speci men Type: BLOOD SPECIMENOrdering Facility: [facility] Address: [address] [place] [address] Performed By: #### 5 7021-8 ####VILLARREAL LABORATORYCLIA [id number] [place] [address] [place] Immature granulocytes (Bld) [#/Vol] 0.09 10*3/uL Normal <0.10 [facility] Comment on above: Order Comment: Speci men Type: BLOOD SPECIMENOrdering Facility: [facility] Address: [address] [place] [address] Performed By: #### 5 7021-8 ####VILLARREAL LABORATORYCLIA [id number] [address] [place] Immature granulocytes/100 WBC (Bld) 0.9 % Normal [facility] Comment on above: Order Comment: Speci men Type: BLOOD SPECIMENOrdering Facility: [facility] Address: [address] [place] [address] Performed By: #### 5 7021-8 ####VILLARREAL LABORATORYCLIA [id number] [place] [address] [place] Lymphocytes (Bld) [#/Vol] 1.04 10*3/uL Normal 1.00-4.00 [facility] Comment on above: Order Comment: Speci men Type: BLOOD SPECIMENOrdering Facility: [facility] Address: [address] [place] [address] Performed By: #### 5 7021-8 ####VILLARREAL LABORATORYCLIA [id number] [address] [place] Lymphocytes/100 WBC (Bld) 9.9 % Normal [facility] Comment on above: Order Comment: Speci men Type: BLOOD SPECIMENOrdering Facility: [facility] Address: [address] [place] [address] Performed By: #### 5 7021-8 ####VILLARREAL LABORATORYCLIA [id number] [address] MCH (RBC) [Entitic mass] 28.1 pg Normal 26.0-34.0 [facility] Comment on above: Order Comment: Speci men Type: BLOOD SPECIMENOrdering Facility: [facility] Address: [address] [place] [address] Performed By: #### 5 7021-8 ####VILLARREAL LABORATORYCLIA [id number] [address] [place] MCHC (RBC) [Mass/Vol] 33.7 g/dL Normal 30.5-36.0 [facility] Comment on above: Order Comment: Speci men Type: BLOOD SPECIMENOrdering Facility: [facility] Address: [address] [place] [address] Performed By: #### 5 7021-8 ####VILLARREAL LABORATORYCLIA [id number] [address] MCV (RBC) [Entitic vol] 83.3 fL Normal 80.0-100.[address] [facility] Comment on above: Order Comment: Speci men Type: BLOOD SPECIMENOrdering Facility: [facility] Address: [address] [place] [address] Performed By: #### 5 7021-8 ####VILLARREAL LABORATORYCLIA [id number] [address] [place] Monocytes (Bld) [#/Vol] 0.93 10*3/uL High <0.87 [facility] Comment on above: Order Comment: Speci men Type: BLOOD SPECIMENOrdering Facility: [facility] Address: [address] [place] [address] Performed By: #### 5 7021-8 ####VILLARREAL LABORATORYCLIA [id number] [address] Monocytes/100 WBC (Bld) 8.9 % Normal [facility] Comment on above: Order Comment: Speci men Type: BLOOD SPECIMENOrdering Facility: [facility] Address: [address] [place] [address] Performed By: #### 5 7021-8 ####VILLARREAL LABORATORYCLIA [id number] [place] [address] [place] Neutrophils (Bld) [#/Vol] 7.97 10*3/uL High 1.45-7.50 [facility] Comment on above: Order Comment: Speci men Type: BLOOD SPECIMENOrdering Facility: [facility] Address: [address] [place] [address] Performed By: #### 5 7021-8 ####VILLARREAL LABORATORYCLIA [id number] [address] [place] Neutrophils/100 WBC (Bld) 76.0 % Normal [facility] Comment on above: Order Comment: Speci men Type: BLOOD SPECIMENOrdering Facility: [facility] Address: [address] [place] [address] Performed By: #### 5 7021-8 ####VILLARREAL LABORATORYCLIA [id number] [place] [address] [place] Nucleated RBC (Bld) [#/Vol] 10*3/uL Normal <0.01 [facility] Comment on above: Order Comment: Speci men Type: BLOOD SPECIMENOrdering Facility: [facility] Address: [address] [place] [address] Performed By: #### 5 7021-8 ####VILLARREAL LABORATORYCLIA [id number] [address] Nucleated RBC/100 WBC (Bld) [Ratio] 0.0 /100 WBC Normal [facility] Comment on above: Order Comment: Speci men Type: BLOOD SPECIMENOrdering Facility: [facility] Address: [address] [place] [address] Performed By: #### 5 7021-8 ####VILLARREAL LABORATORYCLIA [id number] [address] Platelet mean volume (Bld) [Entitic vol] 9.0 fL Normal 9.0-12.7 [facility] Comment on above: Order Comment: Speci men Type: BLOOD SPECIMENOrdering Facility: [facility] Address: [address] [place], [place] [address], [place] [address] Performed By: #### 5 7021-8 ####MASON LABORATORYCLIA [id number] [address] [place] Platelets (Bld) [#/Vol] 381 10*3/uL Normal 150-400 [facility] Comment on above: Order Comment: Speci men Type: BLOOD SPECIMENOrdering Facility: [facility] Address: [address] [place] [address] Performed By: #### 5 7021-8 ####MASON LABORATORYCLIA [id number] [address] [place] RBC (Bld) [#/Vol] 3.60 10*6/uL Low 3.90-5.20 [facility] Comment on above: Order Comment: Speci men Type: BLOOD SPECIMENOrdering Facility: [facility] Address: [address] [place] [id number] Performed By: #### 5 7021-8 ####MASON LABORATORYCLIA [id number] [address] [place] WBC (Bld) [#/Vol] 10.48 10*3/uL Normal 3.70-11.[address] [facility] Comment on above: Order Comment: Speci men Type: BLOOD SPECIMENOrdering Facility: [facility] Address: [address] [place] [id number] Performed By: #### 5 7021-8 ####MASON LABORATORYCLIA [id number] [place] [id number] [facility] [place] CNPNon 11-26-2024 CNPN Telephone (HEMAST) YUSUF MEDINA ([id number]) 1935 [facility] Date Time Provider Department 11/26/24 [facility]UPO [facility]ENDE[facility]EMAST During your visit today, we recorded the following information about you: Sue Urbina 11/26/2024 9:54 AM Signed Spoke w/ pt resource conservation manager, Demetria. Pt is still inpatient. When she is discharged she will be sent to a rehab and will not be able to make appts. Any time soon. Please advise for further requirements. Grupo Mendez MD 11/26/2024 5:[address] Mendez reviewed labs from [facility]. Dr. Mendez recommended for patient to [...] needed for sedation. - blood sugar diagnostic ([employer]TOUCH ULTRA TEST) test strip Test blood sugar [...] this patient by: CAREGIVER José Miguel Swanson [facility] Problem List As Of [...] (capsule) sprain (more content not included)... Normal [facility] CONSULT PROGon 11-26-2024 CONSULT PROG [facility] CONSULT PROG [facility] CONSULT PROG [facility] CT ABD/PEL WO IVCONon 2024 CT ABD/PEL WO IVCON [facility] Lipase SerPl-cCncon 11-26-19 25 Lipase [Catalytic activity/Vol] 22 U/L Normal 16-61 [facility] Comment on above: Order Comment: Speci men Type: BLOOD SPECIMENOrdering Facility: [facility] Address: [address] [place] [address] Performed By: #### 3 040-3 ####MASON LABORATORYCLIA [id number] [place] [address] [facility] [place] Magnesium SerPl-mCncon 11-26 Magnesium [Mass/Vol] 2.0 mg/dL Normal 1.7-2.[address] [facility] Comment on above: Order Comment: Speci men Type: BLOOD SPECIMENOrdering Facility: [facility] Address: [address] [place] [address] Performed By: #### 2 4321-2, 28887-6, 2777-1 ####MASON LABORATORYCLIA [id number] [address] OF [facility] NURSING PROGon 11-26-2024 NURSING PROG Normal [facility] Phosphate SerPl-mCncon 11-26 Phosphate [Mass/Vol] 3.0 mg/dL Normal 2.7-4.[address] [facility] Comment on above: Order Comment: Speci men Type: BLOOD SPECIMENOrdering Facility: [facility] Address: [address] [place] [address] Performed By: #### 2 4321-2, 73950-4, 2777-1 ####MASON LABORATORYCLIA [id number] [place] [id number] [place] Basic metabolic 2000 panelon 11-25-2024 Anion gap [Moles/Vol] 12 mmol/L Normal 8-15 [facility] Comment on above: Order Comment: Speci men Type: BLOOD SPECIMENOrdering Facility: [facility] Address: [address] [place] [address] Performed By: #### 2 4321-2, ####MASON LABORATORYCLIA [id number] [place] [address] [place] Calcium [Mass/Vol] 8.9 mg/dL Normal 8.5-10.2 [facility] Comment on above: Order Comment: Speci men Type: BLOOD SPECIMENOrdering Facility: [facility] Address: [address] [place] [address] Performed By: #### 2 4321-2, ####VILLARREAL LABORATORYCLIA [id number] [place] [address] [place] Chloride [Moles/Vol] 94 mmol/L Low 98-[address] [facility] Comment on above: Order Comment: Speci men Type: BLOOD SPECIMENOrdering Facility: [facility] Address: [address] [place] [address] Performed By: #### 2 4321-2, ####VILLARREAL LABORATORYCLIA [id number] [place] [address] [place] CO2 [Moles/Vol] 24 mmol/L Normal 22-30 [facility] Comment on above: Order Comment: Speci men Type: BLOOD SPECIMENOrdering Facility: [facility] Address: [address] [place] [address] Performed By: #### 2 4321-2, ####VILLARREAL LABORATORYCLIA [id number] [place] [address] [place] Creatinine [Mass/Vol] 0.79 mg/dL Normal 0.58-0.96 [facility] Comment on above: Order Comment: Speci men Type: BLOOD SPECIMENOrdering Facility: [facility] Address: [address] [place] [address] Performed By: #### 2 432-2, ####VILLARREAL LABORATORYCLIA [id number] [place] [address] [facility] [place] Creatinine and Glomerular filtration rate.predicted panel (S/P/Bld) 72 mL/min/1.73m??? Normal >=60 [facility] Comment on above: Order Comment: Speci men Type: BLOOD SPECIMENOrdering Facility: [facility] Address: [address] [place] [address] Result Comment: Hilda mated Glomerular Filtration Rate [...] Performed By: #### 2 43211-15, ####VILLARREAL LABORATORYCLIA [id number] [place] [address] [place] Glucose [Mass/Vol] 251 mg/dL High 74-99 [facility] Comment on above: Order Comment: Fan meade Type: BLOOD SPECIMENOrdering Facility: [facility] Address: [address] [place] [address] Result Comment: The [place] [employer] (ADA) provides guidance for cutoff [...] Standards of Medical Care in Diabetes 2016, [place] [employer]. Diabetes Care. 2016.39(Suppl 1). Performed By: #### 2 4320-12, ####MASON LABORATORYCLIA [id number] [place] [address] [place] Potassium [Moles/Vol] 3.9 mmol/L Normal 3.7-5.1 [facility] Comment on above: Order Comment: Fan meade Type: BLOOD SPECIMENOrdering Facility: [facility] Address: [address] [place] [address] Performed By: #### 2 4320-12, ####VILLARREAL LABORATORYCLIA [id number] [place] [address] [place] Sodium [Moles/Vol] 130 mmol/L Low 136-144 [facility] Comment on above: Order Comment: Fan meade Type: BLOOD SPECIMENOrdering Facility: [facility] Address: [address] [place] [address] Performed By: #### 2 4321-2, 81135-2 ####VILLARREAL LABORATORYCLIA [id number] [address] STATES [facility] Urea nitrogen [Mass/Vol] 32 mg/dL High 7- [facility] Comment on above: Order Comment: Speci men Type: BLOOD SPECIMENOrdering Facility: [facility] Address: [address] [place] [address] Performed By: #### 2 4321-2, 04084-3 ####VILLARREAL LABORATORYCLIA [id number] [place] [address] [place] CBC W Auto Differential pane l (Bld)on 11-25-2024 Basophils (Bld) [#/Vol] 0.05 10*3/uL Normal <0.11 [facility] Comment on above: Order Comment: Speci men Type: BLOOD SPECIMENOrdering Facility: [facility] Address: [address] [place] [address] Performed By: #### 5 7021-8 ####VILLARREAL LABORATORYCLIA [id number] [place] [address] [place] Basophils/100 WBC (Bld) 0.4 % Normal [facility] Comment on above: Order Comment: Speci men Type: BLOOD SPECIMENOrdering Facility: [facility] Address: [address] [place] [address] Performed By: #### 5 7021-8 ####VILLARREAL LABORATORYCLIA [id number] [address] Differential cell count method Nom (Bld) Auto Normal [facility] Comment on above: Order Comment: Speci men Type: BLOOD SPECIMENOrdering Facility: [facility] Address: [address] [place] [address] Performed By: #### 5 7021-8 ####VILLARREAL LABORATORYCLIA [id number] [place] [address] [place] Eosinophils (Bld) [#/Vol] 0.11 10*3/uL Normal <0.46 [facility] Comment on above: Order Comment: Speci men Type: BLOOD SPECIMENOrdering Facility: [facility] Address: [address] [place] [address] Performed By: #### 5 7021-8 ####VILLARREAL LABORATORYCLIA [id number] [address] [place] Eosinophils/100 WBC (Bld) 0.8 % Normal [facility] Comment on above: Order Comment: Speci men Type: BLOOD SPECIMENOrdering Facility: [facility] Address: [address] [place] [address] Performed By: #### 5 7021-8 ####VILLARREAL LABORATORYCLIA [id number] [address] [place] Erythrocyte distribution width (RBC) [Ratio] 14.9 % Normal 11.5-15.0 [facility] Comment on above: Order Comment: Speci men Type: BLOOD SPECIMENOrdering Facility: [facility] Address: [address] [place] [address] Performed By: #### 5 7021-8 ####VILLARREAL LABORATORYCLIA [id number] [address] [place] Hematocrit (Bld) [Volume fraction] 31.8 % Low 36.0-46.0 [facility] Comment on above: Order Comment: Speci men Type: BLOOD SPECIMENOrdering Facility: [facility] Address: [address] [place] [address] Performed By: #### 5 7021-8 ####VILLARREAL LABORATORYCLIA [id number] [place] [address] [place] Hemoglobin (Bld) [Mass/Vol] 10.5 g/dL Low 11.5-15.5 [facility] Comment on above: Order Comment: Speci men Type: BLOOD SPECIMENOrdering Facility: [facility] Address: [address] [place] [address] Performed By: #### 5 7021-8 ####VILLARREAL LABORATORYCLIA [id number] [address] [place] Immature granulocytes (Bld) [#/Vol] 0.09 10*3/uL Normal <0.10 [facility] Comment on above: Order Comment: Speci men Type: BLOOD SPECIMENOrdering Facility: [facility] Address: [address] [place] [address] Performed By: #### 5 7021-8 ####VILLARREAL LABORATORYCLIA [id number] [address] Immature granulocytes/100 WBC (Bld) 0.6 % Normal [facility] Comment on above: Order Comment: Speci men Type: BLOOD SPECIMENOrdering Facility: [facility] Address: [address] [place] [address] Performed By: #### 5 7021-8 ####VILLARREAL LABORATORYCLIA [id number] [address] [place] Lymphocytes (Bld) [#/Vol] 1.18 10*3/uL Normal 1.00-4.00 [facility] Comment on above: Order Comment: Speci men Type: BLOOD SPECIMENOrdering Facility: [facility] Address: [address] [place] [address] Performed By: #### 5 7021-8 ####VILLARREAL LABORATORYCLIA [id number] [address] Lymphocytes/100 WBC (Bld) 8.5 % Normal [facility] Comment on above: Order Comment: Speci men Type: BLOOD SPECIMENOrdering Facility: [facility] Address: [address] [place] [address] Performed By: #### 5 7021-8 ####VILLARREAL LABORATORYCLIA [id number] [address] MCH (RBC) [Entitic mass] 27.8 pg Normal 26.0-34.0 [facility] Comment on above: Order Comment: Speci men Type: BLOOD SPECIMENOrdering Facility: [facility] Address: [address] [place] [address] Performed By: #### 5 7021-8 ####VILLARREAL LABORATORYCLIA [id number] [address] MCHC (RBC) [Mass/Vol] 33.0 g/dL Normal 30.5-36.0 [facility] Comment on above: Order Comment: Speci men Type: BLOOD SPECIMENOrdering Facility: [facility] Address: [address] [place] [address] Performed By: #### 5 7021-8 ####VILLARREAL LABORATORYCLIA [id number] [place] [address] [place] MCV (RBC) [Entitic vol] 84.1 fL Normal 80.0-100.[address] [facility] Comment on above: Order Comment: Speci men Type: BLOOD SPECIMENOrdering Facility: [facility] Address: [address] [place] [address] Performed By: #### 5 7021-8 ####VILLARREAL LABORATORYCLIA [id number] [place] [address] [place] Monocytes (Bld) [#/Vol] 1.11 10*3/uL High <0.87 [facility] Comment on above: Order Comment: Speci men Type: BLOOD SPECIMENOrdering Facility: [facility] Address: [address] [place] [address] Performed By: #### 5 7021-8 ####VILLARREAL LABORATORYCLIA [id number] [address] [place] Monocytes/100 WBC (Bld) 8.0 % Normal [facility] Comment on above: Order Comment: Speci men Type: BLOOD SPECIMENOrdering Facility: [facility] Address: [address] [place] [address] Performed By: #### 5 7021-8 ####VILLARREAL LABORATORYCLIA [id number] [place] [address] [place] Neutrophils (Bld) [#/Vol] 11.41 10*3/uL High 1.45-7.50 [facility] Comment on above: Order Comment: Speci men Type: BLOOD SPECIMENOrdering Facility: [facility] Address: [address] [place] [address] Performed By: #### 5 7021-8 ####VILLARREAL LABORATORYCLIA [id number] [address] [place] Neutrophils/100 WBC (Bld) 81.7 % Normal [facility] Comment on above: Order Comment: Speci men Type: BLOOD SPECIMENOrdering Facility: [facility] Address: [address] [place] [address] Performed By: #### 5 7021-8 ####VILLARREAL LABORATORYCLIA [id number] [place] [address] [place] Nucleated RBC (Bld) [#/Vol] 10*3/uL Normal <0.01 [facility] Comment on above: Order Comment: Speci men Type: BLOOD SPECIMENOrdering Facility: [facility] Address: [address] [place] [address] Performed By: #### 5 7021-8 ####VILLARREAL LABORATORYCLIA [id number] [address] Nucleated RBC/100 WBC (Bld) [Ratio] 0.0 /100 WBC Normal [facility] Comment on above: Order Comment: Speci men Type: BLOOD SPECIMENOrdering Facility: [facility] Address: [address] [place] [address] Performed By: #### 5 7021-8 ####VILLARREAL LABORATORYCLIA [id number] [place] [address] [place] Platelet mean volume (Bld) [Entitic vol] 9.4 fL Normal 9.0-12.7 [facility] Comment on above: Order Comment: Speci men Type: BLOOD SPECIMENOrdering Facility: [facility] Address: [address] [place] [address] Performed By: #### 5 7021-8 ####VILLARREAL LABORATORYCLIA [id number] [place] [address] [place] Platelets (Bld) [#/Vol] 358 10*3/uL Normal 150-400 [facility] Comment on above: Order Comment: Speci men Type: BLOOD SPECIMENOrdering Facility: [facility] Address: [address] [place] [address] Performed By: #### 5 7021-8 ####VILLARREAL LABORATORYCLIA [id number] [place] [address] [place] RBC (Bld) [#/Vol] 3.78 10*6/uL Low 3.90-5.20 [facility] Comment on above: Order Comment: Speci men Type: BLOOD SPECIMENOrdering Facility: [facility] Address: [address] [place] [address] Performed By: #### 5 7021-8 ####VILLARREAL LABORATORYCLIA [id number] [place] [address] [place] [facility] WBC (Bld) [#/Vol] 13.95 10*3/uL High 3.70-11.[address] [facility] Comment on above: Order Comment: Speci men Type: BLOOD SPECIMENOrdering Facility: [facility] Address: [address] [place] [address] Performed By: #### 5 7021-8 ####MASON LABORATORYCLIA [id number] [address] CONSULT PROGon 11-25-2024 CONSULT PRO Normal [facility] CONSULT PROG Normal [facility] Magnesium SerPl-mCncon 11-25 Magnesium [Mass/Vol] 1.1 mg/dL Low 1.7-2.[address] [facility] Comment on above: Order Comment: Speci men Type: BLOOD SPECIMENOrdering Facility: [facility] Address: [address] [place] [address] Performed By: #### 2 4321-2, 99309-5 ####VILLARREAL LABORATORYCLIA [id number] [place] [id number] [place] Basic metabolic 2000 panelon 11-24-2024 Anion gap [Moles/Vol] 14 mmol/L Normal 8-15 [facility] Comment on above: Order Comment: Speci men Type: BLOOD SPECIMENOrdering Facility: [facility] Address: [address] [place] [address] Performed By: #### 2 4321-2 ####VILLARREAL LABORATORYCLIA [id number] [place] [address] [place] Calcium [Mass/Vol] 8.8 mg/dL Normal 8.5-10.2 [facility] Comment on above: Order Comment: Speci men Type: BLOOD SPECIMENOrdering Facility: [facility] Address: [address] [place] [address] Performed By: #### 2 4321-2 ####VILLARREAL LABORATORYCLIA [id number] [address] Chloride [Moles/Vol] 95 mmol/L Low 98-[address] [facility] Comment on above: Order Comment: Speci men Type: BLOOD SPECIMENOrdering Facility: [facility] Address: [address] [place] [address] Performed By: #### 2 4321-2 ####VILLARREAL LABORATORYCLIA [id number] [place] [id number] [place] CO2 [Moles/Vol] 24 mmol/L Normal 22-30 [facility] Comment on above: Order Comment: Speci men Type: BLOOD SPECIMENOrdering Facility: [facility] Address: [address] [place] [address] Performed By: #### 2 4321-2 ####VILLARREAL LABORATORYCLIA [id number] [address] STATES OF [facility] Creatinine [Mass/Vol] 0.92 mg/dL Normal 0.58-0.96 [facility] Comment on above: Order Comment: Speci men Type: BLOOD SPECIMENOrdering Facility: [facility] Address: [address] [place] [address] Performed By: #### 2 4321-2 ####VILLARREAL LABORATORYCLIA [id number] [address] Creatinine and Glomerular filtration rate.predicted panel (S/P/Bld) 60 mL/min/1.73m??? Normal >=60 [facility] Comment on above: Order Comment: Speci men Type: BLOOD SPECIMENOrdering Facility: [facility] Address: [address] [place] [address] Result Comment: Hilda mated Glomerular Filtration Rate [...] Performed By: #### 2 4321-2 ####VILLARREAL LABORATORYCLIA [id number] [place] [address] [place] Glucose [Mass/Vol] 202 mg/dL High 74-99 [facility] Comment on above: Order Comment: Fan meade Type: BLOOD SPECIMENOrdering Facility: [facility] Address: [address] [place] [address] Result Comment: The [place] [employer] (ADA) provides guidance for cutoff [...] Standards of Medical Care in Diabetes 2016, [employer]. Diabetes Care. 2016.39(Suppl 1). Performed By: #### 2 4321-2 ####MASON LABORATORYCLIA [id number] [place] [address] [place] Potassium [Moles/Vol] 4.0 mmol/L Normal 3.7-5.1 [facility] Comment on above: Order Comment: Fan meade Type: BLOOD SPECIMENOrdering Facility: [facility] Address: [address] [place] [address] Performed By: #### 2 4321-2 ####VILLARREAL LABORATORYCLIA [id number] [place] [id number] [place] Sodium [Moles/Vol] 133 mmol/L Low 136-144 [facility] Comment on above: Order Comment: Fan meade Type: BLOOD SPECIMENOrdering Facility: [facility] Address: [address] [place] [address] Performed By: #### 2 4321-2 ####VILLARREAL LABORATORYCLIA [id number] [address] Urea nitrogen [Mass/Vol] 39 mg/dL High 7-21 [facility] Comment on above: Order Comment: Speci men Type: BLOOD SPECIMENOrdering Facility: [facility] Address: [address] [place] [address] Performed By: #### 2 4321-2 ####VILLARREAL LABORATORYCLIA [id number] [address] [place] CBC panel Auto (Bld)on 11-24 Erythrocyte distribution width (RBC) [Ratio] 15.2 % High 11.5-15.0 [facility] Comment on above: Order Comment: Speci men Type: BLOOD SPECIMENOrdering Facility: [facility] Address: [address] [place] [address] Performed By: #### 5 8410-2 ####VILLARREAL LABORATORYCLIA [id number] [address] [place] Hematocrit (Bld) [Volume fraction] 29.3 % Low 36.0-46.0 [facility] Comment on above: Order Comment: Speci men Type: BLOOD SPECIMENOrdering Facility: [facility] Address: [address] [place] [address] Performed By: #### 5 8410-2 ####VILLARREAL LABORATORYCLIA [id number] [address] [place] Hemoglobin (Bld) [Mass/Vol] 9.7 g/dL Low 11.5-15.5 [facility] Comment on above: Order Comment: Speci men Type: BLOOD SPECIMENOrdering Facility: [facility] Address: [address] [place] [address] Performed By: #### 5 8410-2 ####VILLARREAL LABORATORYCLIA [id number] [address] MCH (RBC) [Entitic mass] 27.8 pg Normal 26.0-34.0 [facility] Comment on above: Order Comment: Speci men Type: BLOOD SPECIMENOrdering Facility: [facility] Address: [address] [place] [address] Performed By: #### 5 8410-2 ####VILLARREAL LABORATORYCLIA [id number] [address] [place] MCHC (RBC) [Mass/Vol] 33.1 g/dL Normal 30.5-36.0 [facility] Comment on above: Order Comment: Speci men Type: BLOOD SPECIMENOrdering Facility: [facility] Address: [address] [place] [address] Performed By: #### 5 8410-2 ####VILLARREAL LABORATORYCLIA [id number] [place] [address] [place] MCV (RBC) [Entitic vol] 84.0 fL Normal 80.0-100.0 M [facility] Comment on above: Order Comment: Speci men Type: BLOOD SPECIMENOrdering Facility: [facility] Address: [address] [place] [address] Performed By: #### 5 8410-2 ####VILLARREAL LABORATORYCLIA [id number] [place] [address] [place] Nucleated RBC (Bld) [#/Vol] 10*3/uL Normal <0.01 [facility] Comment on above: Order Comment: Speci men Type: BLOOD SPECIMENOrdering Facility: [facility] Address: [address] [place] [address] Performed By: #### 5 8410-2 ####VILLARREAL LABORATORYCLIA [id number] [address] [place] Platelet mean volume (Bld) [Entitic vol] 9.5 fL Normal 9.0-12.7 [facility] Comment on above: Order Comment: Speci men Type: BLOOD SPECIMENOrdering Facility: [facility] Address: [address] [place] [address] Performed By: #### 5 8410-2 ####VILLARREAL LABORATORYCLIA [id number] [address] [place] Platelets (Bld) [#/Vol] 338 10*3/uL Normal 150-400 [facility] Comment on above: Order Comment: Speci men Type: BLOOD SPECIMENOrdering Facility: [facility] Address: [address] [place] [address] Performed By: #### 5 8410-2 ####VILLARREAL LABORATORYCLIA [id number] [address] RBC (Bld) [#/Vol] 3.49 10*6/uL Low 3.90-5.20 [facility] Comment on above: Order Comment: Speci men Type: BLOOD SPECIMENOrdering Facility: [facility] Address: [address] [place] [id number] Performed By: #### 5 8410-2 ####VILLARREAL LABORATORYCLIA [id number] [address] WBC (Bld) [#/Vol] 12.48 10*3/uL High 3.70-11.[address] [facility] Comment on above: Order Comment: Speci men Type: BLOOD SPECIMENOrdering Facility: [facility] Address: [address] [place], [place] [address] Performed By: #### 5 8410-2 ####VILLARREAL LABORATORYCLIA [id number] [address] CONSULTon 11-24-2024 CONSULT [facility] CONSULT PROGon 11-24-2024 CONSULT PROG [facility] CONSULT PROG [facility] Vancomycin [place] SerPl-mCncon 11-24-2024 Vancomycin random [Mass/Vol] 11.6 ug/mL Normal 10.0-20.0 [facility] Comment on above: Order Comment: Speci men Type: BLOOD SPECIMENOrdering Facility: [facility] Address: [address] [place] [id number] Result Comment: Refe rence ranges and high/low indicator flags are provided as general guidelines only. The treating physician must determine appropriate target levels/dosing based on the specific clinical situation. Performed By: #### 4 091-5 ####VILLARREAL LABORATORYCLIA [id number] [place] [id number] [facility] Basic metabolic 2000 panelon 11-23-2024 Anion gap [Moles/Vol] 14 mmol/L Normal 8-15 [facility] Comment on above: Order Comment: Speci men Type: BLOOD SPECIMENOrdering Facility: [facility] Address: [address] [place] [address] Performed By: #### 2 4321-2 ####VILLARREAL LABORATORYCLIA [id number] [place] [address] [place] Calcium [Mass/Vol] 8.7 mg/dL Normal 8.5-10.2 [facility] Comment on above: Order Comment: Speci men Type: BLOOD SPECIMENOrdering Facility: [facility] Address: [address] [place] [address] Performed By: #### 2 4321-2 ####VILLARREAL LABORATORYCLIA [id number] [place] [address] [place] Chloride [Moles/Vol] 98 mmol/L Normal 98-[address] [facility] Comment on above: Order Comment: Speci men Type: BLOOD SPECIMENOrdering Facility: [facility] Address: [address] [place] [address] Performed By: #### 2 4321-2 ####VILLARREAL LABORATORYCLIA [id number] [place] [address] [place] CO2 [Moles/Vol] 24 mmol/L Normal 22-30 [facility] Comment on above: Order Comment: Speci men Type: BLOOD SPECIMENOrdering Facility: [facility] Address: [address] [place] [address] Performed By: #### 2 4321-2 ####VILLARREAL LABORATORYCLIA [id number] [address] [place] Creatinine [Mass/Vol] 0.96 mg/dL Normal 0.58-0.96 [facility] Comment on above: Order Comment: Speci men Type: BLOOD SPECIMENOrdering Facility: [facility] Address: [address] [place] [address] Performed By: #### 2 4321-2 ####VILLARREAL LABORATORYCLIA [id number] [address] [place] Creatinine and Glomerular filtration rate.predicted panel (S/P/Bld) 57 mL/min/1.73m??? Low >=60 [facility] Comment on above: Order Comment: Speci men Type: BLOOD SPECIMENOrdering Facility: [facility] Address: [address] [place] [address] Result Comment: Hilda mated Glomerular Filtration Rate [...] actual GFR. Performed By: #### 2 4321-2 ####MASON LABORATORYCLIA [id number] [place] [address] [place] Glucose [Mass/Vol] 193 mg/dL High 74-99 [facility] Comment on above: Order Comment: Fan meade Type: BLOOD SPECIMENOrdering Facility: [facility] Address: [address] [place] [address] Result Comment: The [place] [employer] (ADA) provides guidance for cutoff [...] Standards of Medical Care in Diabetes 2016, [place] [employer]. Diabetes Care. 2016.39(Suppl 1). Performed By: #### 2 4321-2 ####MASON LABORATORYCLIA [id number] [place] [id number] [place] Potassium [Moles/Vol] 4.1 mmol/L Normal 3.7-5.1 [facility] Comment on above: Order Comment: Fan meade Type: BLOOD SPECIMENOrdering Facility: [facility] Address: [address] [place] [id number] Performed By: #### 2 4321-2 ####MASON LABORATORYCLIA [id number] [place] [address] [place] Sodium [Moles/Vol] 136 mmol/L Normal 136-144 [facility] Comment on above: Order Comment: Speci men Type: BLOOD SPECIMENOrdering Facility: [facility] Address: [address] [place] [address] Performed By: #### 2 4321-2 ####VILLARREAL LABORATORYCLIA [id number] [address] STATES [facility] Urea nitrogen [Mass/Vol] 31 mg/dL High 7-21 [facility] Comment on above: Order Comment: Speci men Type: BLOOD SPECIMENOrdering Facility: [facility] Address: [address] [place] [address] Performed By: #### 2 4321-2 ####VILLARREAL LABORATORYCLIA [id number] [address] CASE MANAGEMon 11-23-2024 CASE MANAGEM Normal [facility] CBC panel Auto (Bld)on 11-23 Erythrocyte distribution width (RBC) [Ratio] 15.1 % High 11.5-15.0 [facility] Comment on above: Order Comment: Speci men Type: BLOOD SPECIMENOrdering Facility: [facility] Address: [address] [place] [address] Performed By: #### 5 8410-2 ####VILLARREAL LABORATORYCLIA [id number] [address] [place] Hematocrit (Bld) [Volume fraction] 30.5 % Low 36.0-46.0 [facility] Comment on above: Order Comment: Speci men Type: BLOOD SPECIMENOrdering Facility: [facility] Address: [address] [facility] [place] [address] Performed By: #### 5 8410-2 ####VILLARREAL LABORATORYCLIA [id number] [address] [place] Hemoglobin (Bld) [Mass/Vol] 10.2 g/dL Low 11.5-15.5 [facility] Comment on above: Order Comment: Speci men Type: BLOOD SPECIMENOrdering Facility: [facility] Address: [address] [place] [address] Performed By: #### 5 8410-2 ####VILLARREAL LABORATORYCLIA [id number] [address] MCH (RBC) [Entitic mass] 28.2 pg Normal 26.0-34.0 [facility] Comment on above: Order Comment: Speci men Type: BLOOD SPECIMENOrdering Facility: [facility] Address: [address] [place] [address] Performed By: #### 5 8410-2 ####VILLARREAL LABORATORYCLIA [id number] [address] [place] MCHC (RBC) [Mass/Vol] 33.4 g/dL Normal 30.5-36.0 [facility] Comment on above: Order Comment: Speci men Type: BLOOD SPECIMENOrdering Facility: [facility] Address: [address] [place] [address] Performed By: #### 5 8410-2 ####VILLARREAL LABORATORYCLIA [id number] [address] MCV (RBC) [Entitic vol] 84.3 fL Normal 80.0-100.0 M [facility] Comment on above: Order Comment: Speci men Type: BLOOD SPECIMENOrdering Facility: [facility] Address: [address] [place] [address] Performed By: #### 5 8410-2 ####VILLARREAL LABORATORYCLIA [id number] [address] Nucleated RBC (Bld) [#/Vol] 10*3/uL Normal <0.01 [facility] Comment on above: Order Comment: Speci men Type: BLOOD SPECIMENOrdering Facility: [facility] Address: [address] [place] [address] Performed By: #### 5 8410-2 ####VILLARREAL LABORATORYCLIA [id number] [address] Platelet mean volume (Bld) [Entitic vol] 9.5 fL Normal 9.0-12.7 [facility] Comment on above: Order Comment: Speci men Type: BLOOD SPECIMENOrdering Facility: [facility] Address: [address] [place] [id number] Performed By: #### 5 8410-2 ####VILLARREAL LABORATORYCLIA [id number] [place] [id number] [facility] [place] Platelets (Bld) [#/Vol] 338 10*3/uL Normal 150-400 [facility] Comment on above: Order Comment: Speci men Type: BLOOD SPECIMENOrdering Facility: [facility] Address: [address] [place] [address] Performed By: #### 5 8410-2 ####MASON LABORATORYCLIA [id number] [place] [address] [place] RBC (Bld) [#/Vol] 3.62 10*6/uL Low 3.90-5.20 [facility] Comment on above: Order Comment: Speci men Type: BLOOD SPECIMENOrdering Facility: [facility] Address: [address] [place] [address] Performed By: #### 5 8410-2 ####MASON LABORATORYCLIA [id number] [place] [address] [place] WBC (Bld) [#/Vol] 15.48 10*3/uL High 3.70-11.[address] [facility] Comment on above: Order Comment: Speci men Type: BLOOD SPECIMENOrdering Facility: [facility] Address: [address] [place] [address] Performed By: #### 5 8410-2 ####MASON LABORATORYCLIA [id number] [place] [id number] [facility] [place] CONSULT PROGon 11-23-2024 CONSULT PROG Normal [facility] THERAPY NTon 11-23-2024 THERAPY NT Normal [facility] THERAPY NT Normal [facility] Bacteria Spec Anaerobe Culto n 11-22-2024 Bacteria identified Anaer cx Nom (Unsp spec) Negative [facility] Comment on above: Performed By: #### 6 462-6, 635-3 ####[facility] LABCLIA [id number] [facility] [id number] [address] [place] Bacteria Wnd Culton 11-22-19 25 Bacteria identified Cx Nom (Wound) ORGANISM ID: 1 Many Staphylococcus aureus Refer to specimen collected on 11/21/2024 at 10:34 PM [[id number]] GRAM STAIN: Rare Gram positive cocci Rare Polymorphonuclear leukocytes Abnormal [facility] Comment on above: Performed By: #### 6 462-6, 635-3 ####[facility] LABCLIA [id number] [address] [id number] [address] [place] Basic metabolic 2000 panelon 11-22-2024 Anion gap [Moles/Vol] 11 mmol/L Normal 8-15 [facility] Comment on above: Order Comment: Speci men Type: BLOOD SPECIMENOrdering Facility: [facility] Address: [address] [place] [address] Performed By: #### 2 4321-2 ####MASON LABORATORYCLIA [id number] [place] [address] [place] Calcium [Mass/Vol] 8.2 mg/dL Low 8.5-10.2 [facility] Comment on above: Order Comment: Speci men Type: BLOOD SPECIMENOrdering Facility: [facility] Address: [address] [place] [address] Performed By: #### 2 4321-2 ####MASON LABORATORYCLIA [id number] [place] [address] [place] Chloride [Moles/Vol] 97 mmol/L Low 98-[address] [facility] Comment on above: Order Comment: Speci men Type: BLOOD SPECIMENOrdering Facility: [facility] Address: [address] [place] [address] Performed By: #### 2 4321-2 ####VILLARREAL LABORATORYCLIA [id number] [place] [address] [place] CO2 [Moles/Vol] 25 mmol/L Normal 22-30 [facility] Comment on above: Order Comment: Speci men Type: BLOOD SPECIMENOrdering Facility: [facility] Address: [address] [place] [address] Performed By: #### 2 4321-2 ####VILLARREAL LABORATORYCLIA [id number] [address] [place] Creatinine [Mass/Vol] 0.89 mg/dL Normal 0.58-0.96 [facility] Comment on above: Order Comment: Fan meade Type: BLOOD SPECIMENOrdering Facility: [facility] Address: [address] [place] [address] Performed By: #### 2 4321-2 ####MASON LABORATORYCLIA [id number] [address] Creatinine and Glomerular filtration rate.predicted panel (S/P/Bld) 62 mL/min/1.73m??? Normal >=60 [facility] Comment on above: Order Comment: Fan meade Type: BLOOD SPECIMENOrdering Facility: [facility] Address: [address] [place] [address] Result Comment: Hilda mated Glomerular Filtration Rate [...] actual GFR. Performed By: #### 2 4321-2 ####[facility] LABORATORYCLIA [id number] [address] [place] Glucose [Mass/Vol] 291 mg/dL High 74-99 [facility] Comment on above: Order Comment: Fan meade Type: BLOOD SPECIMENOrdering Facility: [facility] Address: [address] [place] [address] Result Comment: The [employer] (ADA) provides guidance for cutoff [...] Standards of Medical Care in Diabetes 2016, [employer]. Diabetes Care. 2016.39(Suppl 1). Performed By: #### 2 4321-2 ####[facility] LABORATORYCLIA [id number] [place] [address] [place] Potassium [Moles/Vol] 4.1 mmol/L Normal 3.7-5.1 [facility] Comment on above: Order Comment: Fan meade Type: BLOOD SPECIMENOrdering Facility: [facility] Address: [address] [place] [address] Performed By: #### 2 4321-2 ####MASON LABORATORYCLIA [id number] [address] [place] Sodium [Moles/Vol] 133 mmol/L Low 136-144 [facility] Comment on above: Order Comment: Fan meade Type: BLOOD SPECIMENOrdering Facility: [facility] Address: [address] [place] [address] Performed By: #### 2 4321-2 ####MASON LABORATORYCLIA [id number] [place] [id number] [place] Urea nitrogen [Mass/Vol] 30 mg/dL High 7-21 [facility] Comment on above: Order Comment: Fan meade Type: BLOOD SPECIMENOrdering Facility: [facility] Address: [address] [place] [address] Performed By: #### 2 4321-2 ####MASON LABORATORYCLIA [id number] [place] [id number] [place] CASE MGT INIT ASSESon 2024 CASE MGT INIT ASS Normal [facility] CBC panel Auto (Bld)on 11-22 Erythrocyte distribution width (RBC) [Ratio] 15.2 % High 11.5-15.0 [facility] Comment on above: Order Comment: Fan meade Type: BLOOD SPECIMENOrdering Facility: [facility] Address: [address] [place] [address] Performed By: #### 5 8410-2 ####MASON LABORATORYCLIA [id number] [place] [address] [place] Hematocrit (Bld) [Volume fraction] 28.5 % Low 36.0-46.0 [facility] Comment on above: Order Comment: Speci men Type: BLOOD SPECIMENOrdering Facility: [facility] Address: [address] [place] [address] Performed By: #### 5 8410-2 ####VILLARREAL LABORATORYCLIA [id number] [address] [place] Hemoglobin (Bld) [Mass/Vol] 9.3 g/dL Low 11.5-15.5 [facility] Comment on above: Order Comment: Speci men Type: BLOOD SPECIMENOrdering Facility: [facility] Address: [address] [place] [address] Performed By: #### 5 8410-2 ####VILLARREAL LABORATORYCLIA [id number] [address] [place] MCH (RBC) [Entitic mass] 27.8 pg Normal 26.0-34.0 [facility] Comment on above: Order Comment: Speci men Type: BLOOD SPECIMENOrdering Facility: [facility] Address: [address] [place] [address] Performed By: #### 5 8410-2 ####VILLAR[facility] LABORATORYCLIA [id number] [address] [place] MCHC (RBC) [Mass/Vol] 32.6 g/dL Normal 30.5-36.0 [facility] Comment on above: Order Comment: Speci men Type: BLOOD SPECIMENOrdering Facility: [facility] Address: [address] [place] [address] Performed By: #### 5 8410-2 ####VILLARREAL LABORATORYCLIA [id number] [address] STATES [facility] MCV (RBC) [Entitic vol] 85.3 fL Normal 80.0-100.[address] [facility] Comment on above: Order Comment: Speci men Type: BLOOD SPECIMENOrdering Facility: [facility] Address: [address] [place] [address] Performed By: #### 5 8410-2 ####VILLARREAL LABORATORYCLIA [id number] [place] [address] [place] Nucleated RBC (Bld) [#/Vol] 10*3/uL Normal <0.01 [facility] Comment on above: Order Comment: Speci men Type: BLOOD SPECIMENOrdering Facility: [facility] Address: [address] [place] [address] Performed By: #### 5 8410-2 ####MASON LABORATORYCLIA [id number] [place] [address] [place] Platelet mean volume (Bld) [Entitic vol] 9.5 fL Normal 9.0-12.7 [facility] Comment on above: Order Comment: Speci men Type: BLOOD SPECIMENOrdering Facility: [facility] Address: [address] [place] [address] Performed By: #### 5 8410-2 ####MASON LABORATORYCLIA [id number] [place] [address] [place] Platelets (Bld) [#/Vol] 294 10*3/uL Normal 150-400 [facility] Comment on above: Order Comment: Speci men Type: BLOOD SPECIMENOrdering Facility: [facility] Address: [address] [place] [address] Performed By: #### 5 8410-2 ####MASON LABORATORYCLIA [id number] [place] [address] [place] RBC (Bld) [#/Vol] 3.34 10*6/uL Low 3.90-5.20 [facility] Comment on above: Order Comment: Speci men Type: BLOOD SPECIMENOrdering Facility: [facility] Address: [address] [place] [address] Performed By: #### 5 8410-2 ####VILLARREAL LABORATORYCLIA [id number] [place] [id number] [place] WBC (Bld) [#/Vol] 15.66 10*3/uL High 3.70-11.[address] [facility] Comment on above: Order Comment: Speci men Type: BLOOD SPECIMENOrdering Facility: [facility] Address: [address] [place] [address] Performed By: #### 5 8410-2 ####MASON LABORATORYCLIA [id number] [place] [address] [place] CONSULTon 11-22-2024 CONSULT Normal [facility] CONSULT PROGon 11-22-2024 CONSULT PROG [facility] ESR Westergren method (Bld) [Velocity]on 11-22-2024 ESR (Bld) [Velocity] 40 mm/h High 0-[address] [facility] Comment on above: Order Comment: Speci men Type: BLOOD SPECIMENOrdering Facility: [facility] Address: [address] [place] [address] Performed By: #### 4 537-7 ####[facility] LABCLIA [id number] [place] [address] [place] HISTORY PHYSICALon HISTORY PHYSICAL Normal [facility] NUTRITIONon 11-22-2024 NUTRITION Normal [facility] SEPSIS LACTATE W/ REFLEX (SE COND)on 11-22-2024 Lactate [Moles/Vol] 1.9 mmol/L Normal 0.5-2.0 [facility] Comment on above: Order Comment: Speci men Type: BLOOD SPECIMENOrdering Facility: [facility] Address: [address] [place] [address] Performed By: #### S LACT2 ####MASON LABORATORYCLIA [id number] [place] [id number] [place] US ANKLE BRACHIAL INDICESon 11-22-2024 US ANKLE BRACHIAL INDICES Normal [facility] Bacteria Bld Culton 11-21-19 25 Bacteria identified Cx Nom (Bld) CULTURE, BLOOD: No growth 5 days Normal [facility] Comment on above: Performed By: #### 6 00-7 ####[facility] LABCLIA [id number] [place] [address] [place] Bacteria identified Cx Nom (Bld) ORGANISM ID: 1 Gram positive diphtheroid-like bacilli Probable contaminant. Susceptibility testing will not be performed. Call lab within 72 hours to initiate workup if clinically indicated. GRAM STAIN: Gram positive bacilli Abnormal [facility] Comment on above: Performed By: #### 6 00-7 ####[facility] LABCLIA [id number] [address] [place] Bacteria Wnd Culton 11-21-19 25 Bacteria identified Cx Nom (Wound) Abnormal [facility] Comment on above: Performed By: #### 6 462-6 ####[facility] LABCLIA [id number] [place] [address] [place] CBC W Auto Differential pane l (Bld)on 11-21-2024 Basophils (Bld) [#/Vol] 0.04 10*3/uL Normal <0.11 [facility] Comment on above: Order Comment: Speci men Type: BLOOD SPECIMENOrdering Facility: [facility] Address: [address] [place] [address] Performed By: #### 5 5454-3 ####[facility] LABCLIA [id number] [address] [place]#### 23348-4 ####[facility]ON LABORATORYCLIA [id number] [address] Basophils/100 WBC (Bld) 0.2 % Normal [facility] Comment on above: Order Comment: Speci men Type: BLOOD SPECIMENOrdering Facility: [facility] Address: [address] [place] [address] Performed By: #### 5 5454-3 ####[facility] LABCLIA [id number] [address] [place]#### [address]40[address]-6 ####[facility]ON LABORATORYCLIA [id number] [address] Differential cell count method Nom (Bld) Auto Normal [facility] Comment on above: Order Comment: Speci men Type: BLOOD SPECIMENOrdering Facility: [facility] Address: [address] [place] [address] Performed By: #### 5 5454-3 ####[facility] LABCLIA [id number] [place] [address] [place]#### 71944-9 ####[facility] LABORATORYCLIA [id number] [address] Eosinophils (Bld) [#/Vol] 10*3/uL Normal <0.46 [facility] Comment on above: Order Comment: Speci men Type: BLOOD SPECIMENOrdering Facility: [facility] Address: [address] [place] [address] Performed By: #### 5 5454-3 ####[facility] LABCLIA [id number] [address] [place]#### 26521-9 ####V[facility] LABORATORYCLIA [id number] [address] Eosinophils/100 WBC (Bld) 0.0 % Normal [facility] Comment on above: Order Comment: Speci men Type: BLOOD SPECIMENOrdering Facility: [facility] Address: [address] [place] [address] Performed By: #### 5 5454-3 ####[facility] LABCLIA [id number] [address]#### 63157-6 ####VILL[facility] LABORATORYCLIA [id number] [address] STATES [facility] Erythrocyte distribution width (RBC) [Ratio] 15.0 % Normal 11.5-15.0 [facility] Comment on above: Order Comment: Speci men Type: BLOOD SPECIMENOrdering Facility: [facility] Address: [address] [place] [address] Performed By: #### 5 5454-3 ####[facility] LABCLIA [id number] [address] [place]#### 70487-7 ####[facility] LABORATORYCLIA [id number] [address] [place] Hematocrit (Bld) [Volume fraction] 32.3 % Low 36.0-46.0 [facility] Comment on above: Order Comment: Speci men Type: BLOOD SPECIMENOrdering Facility: [facility] Address: [address] [place] [address] Performed By: #### 5 5454-3 ####[facility] LABCLIA [id number] [place] [address] [place]#### 87628-8 ####[facility] LABORATORYCLIA [id number] [place] [address] [place] Hemoglobin (Bld) [Mass/Vol] 10.9 g/dL Low 11.5-15.5 [facility] Comment on above: Order Comment: Speci men Type: BLOOD SPECIMENOrdering Facility: [facility] Address: [address] [place] [address] Performed By: #### 5 5454-3 ####[facility] LABCLIA [id number] [place] [address] [place]#### 36321-1 ####[facility] LABORATORYCLIA [id number] [place] [address] [place] Immature granulocytes (Bld) [#/Vol] 0.13 10*3/uL High <0.10 [facility] Comment on above: Order Comment: Speci men Type: BLOOD SPECIMENOrdering Facility: [facility] Address: [address] [place] [address] Performed By: #### 5 5454-3 ####[facility] LABCLIA [id number] [place] [address] [place]#### 28678-6 ####V[facility] LABORATORYCLIA [id number] [address] [place] Immature granulocytes/100 WBC (Bld) 0.7 % Normal [facility] Comment on above: Order Comment: Speci men Type: BLOOD SPECIMENOrdering Facility: [facility] Address: [address] [place] [address] Performed By: #### 5 5454-3 ####[facility] LABCLIA [id number] [place] [address] [place] [facility] [place]#### 60909-2 ####VILL[facility] LABORATORYCLIA [id number] [address] Lymphocytes (Bld) [#/Vol] 0.76 10*3/uL Low 1.00-4.00 [facility] Comment on above: Order Comment: Speci men Type: BLOOD SPECIMENOrdering Facility: [facility] Address: [address] [place] [address] Performed By: #### 5 5454-3 ####[facility] LABCLIA [id number] [address] [place]#### 96805-0 ####[facility] LABORATORYCLIA [id number] [address] Lymphocytes/100 WBC (Bld) 3.8 % Normal [facility] Comment on above: Order Comment: Speci men Type: BLOOD SPECIMENOrdering Facility: [facility] Address: [address] [place] [address] Performed By: #### 5 5454-3 ####[facility] LABCLIA [id number] [address] [place]#### 34860-8 ####V[facility] LABORATORYCLIA [id number] [address] [place] MCH (RBC) [Entitic mass] 28.5 pg Normal 26.0-34.0 [facility] Comment on above: Order Comment: Speci men Type: BLOOD SPECIMENOrdering Facility: [facility] Address: [address] [place] [address] Performed By: #### 5 5454-3 ####[facility] LABCLIA [id number] [place] [address] [place]#### 21594-1 ####VILLAR[facility] LABORATORYCLIA [id number] [address] STATES [facility] MCHC (RBC) [Mass/Vol] 33.7 g/dL Normal 30.5-36.0 [facility] Comment on above: Order Comment: Speci men Type: BLOOD SPECIMENOrdering Facility: [facility] Address: [address] [place] [address] Performed By: #### 5 5454-3 ####[facility] LABCLIA [id number] [address] [place]#### 80668-5 ####V[facility] LABORATORYCLIA [id number] [address] MCV (RBC) [Entitic vol] 84.3 fL Normal 80.0-100.[address] [facility] Comment on above: Order Comment: Speci men Type: BLOOD SPECIMENOrdering Facility: [facility] Address: [address] [place] [address] Performed By: #### 5 5454-3 ####[facility] LABCLIA [id number] [address] [place]#### 46299-4 ####V[facility] LABORATORYCLIA [id number] [address] [place] Monocytes (Bld) [#/Vol] 0.94 10*3/uL High <0.87 [facility] Comment on above: Order Comment: Speci men Type: BLOOD SPECIMENOrdering Facility: [facility] Address: [address] [place] [address] Performed By: #### 5 5454-3 ####[facility] LABCLIA [id number] [place] [address] [place]#### 66033-8 ####V[facility] LABORATORYCLIA [id number] [address] [place] Monocytes/100 WBC (Bld) 4.7 % Normal [facility] Comment on above: Order Comment: Speci men Type: BLOOD SPECIMENOrdering Facility: [facility] Address: [address] [place] [address] Performed By: #### 5 5454-3 ####[facility] LABCLIA [id number] [place] [address] [place]#### 94953-9 ####V[facility] LABORATORYCLIA [id number] [place] [address] [place] Neutrophils (Bld) [#/Vol] 17.99 10*3/uL High 1.45-7.50 [facility] Comment on above: Order Comment: Speci men Type: BLOOD SPECIMENOrdering Facility: [facility] Address: [address] [place] [address] Performed By: #### 5 5454-3 ####[facility] LABCLIA [id number] [place] [address] [place]#### 32006-9 ####V[facility] LABORATORYCLIA [id number] [address] [place] Neutrophils/100 WBC (Bld) 90.6 % Normal [facility] Comment on above: Order Comment: Speci men Type: BLOOD SPECIMENOrdering Facility: [facility] Address: [address] [place] [address] Performed By: #### 5 5454-3 ####[facility] LABCLIA [id number] [place] [address] [place]#### 67189-1 ####VILLARRELA LABORATORYCLIA [id number] [place] [address] [place] Nucleated RBC (Bld) [#/Vol] 10*3/uL Normal <0.01 [facility] Comment on above: Order Comment: Speci men Type: BLOOD SPECIMENOrdering Facility: [facility] Address: [address] [place] [address] Performed By: #### 5 5454-3 ####[facility] LABCLIA [id number] [address] [place]#### 08051-4 ####V[facility] LABORATORYCLIA [id number] [address] Nucleated RBC/100 WBC (Bld) [Ratio] 0.0 /100 WBC Normal [facility] Comment on above: Order Comment: Speci men Type: BLOOD SPECIMENOrdering Facility: [facility] Address: [address] [place] [address] Performed By: #### 5 5454-3 ####[facility] LABCLIA [id number] [address] [place]#### 53718-6 ####VILL[facility] LABORATORYCLIA [id number] [address] STATES [facility] Platelet mean volume (Bld) [Entitic vol] 9.0 fL Normal 9.0-12.7 [facility] Comment on above: Order Comment: Speci men Type: BLOOD SPECIMENOrdering Facility: [facility] Address: [address] [place] [address] Performed By: #### 5 5454-3 ####[facility] LABCLIA [id number] [address] [place]#### 26986-1 ####[facility] LABORATORYCLIA [id number] [address] [place] Platelets (Bld) [#/Vol] 326 10*3/uL Normal 150-400 [facility] Comment on above: Order Comment: Speci men Type: BLOOD SPECIMENOrdering Facility: [facility] Address: [address] [place] [address] Performed By: #### 5 5454-3 ####[facility] LABCLIA [id number] [place] [address] [facility] [place]#### 61582-2 ####[facility] LABORATORYCLIA [id number] [place] [address] [place] RBC (Bld) [#/Vol] 3.83 10*6/uL Low 3.90-5.20 [facility] Comment on above: Order Comment: Speci men Type: BLOOD SPECIMENOrdering Facility: [facility] Address: [address] [place] [address] [place] [address] Performed By: #### 5 5454-3 ####[facility] LABCLIA [id number] [place] [address] [place]#### 45114-2 ####[facility] LABORATORYCLIA [id number] [place] [address] [place] WBC (Bld) [#/Vol] 19.86 10*3/uL High 3.70-11.[address] [facility] Comment on above: Order Comment: Speci men Type: BLOOD SPECIMENOrdering Facility: [facility] Address: [address] [place] [address] Performed By: #### 5 5454-3 ####[facility] LABCLIA [id number] [place] [address] [place]#### 30158-7 ####[facility] LABORATORYCLIA [id number] [address] [place] CRP SerPl-mCncon 11-21-2024 CRP [Mass/Vol] 3.8 mg/dL High <0.9 [facility] Comment on above: Order Comment: Speci men Type: BLOOD SPECIMENOrdering Facility: [facility] Address: [address] [place] [address] [place] [address] Performed By: #### 2 4323-8, 33213-9, 1987-, 39336-4 ####[facility] LABORATORYCLIA [id number] [place] [address] [place] Comprehensive metabolic 2000 panelon 11-21-2024 Albumin [Mass/Vol] 3.7 g/dL Low 3.9-4.9 [facility] Comment on above: Order Comment: Speci men Type: BLOOD SPECIMENOrdering Facility: [facility] Address: [address] [place] [address] Performed By: #### 2 4323-8, 32301-2, 1988-03, ####[facility] LABORATORYCLIA [id number] [place] [address] [place] ALP [Catalytic activity/Vol] 90 U/L Normal 34-123 [facility] Comment on above: Order Comment: Speci men Type: BLOOD SPECIMENOrdering Facility: [facility] Address: [address] [place] [address] Performed By: #### 2 4323-8, 27047-1, 1988-03, ####[facility] LABORATORYCLIA [id number] [place] [address] [place] [facility] ALT [Catalytic activity/Vol] 10 U/L Normal 7-38 [facility] Comment on above: Order Comment: Speci men Type: BLOOD SPECIMENOrdering Facility: [facility] Address: [address] [place] [address] Performed By: #### 2 4323-8, 22783-8, 1988-03, ####[facility] LABORATORYCLIA [id number] [address] STATES [facility] Anion gap [Moles/Vol] 13 mmol/L Normal 8-15 [facility] Comment on above: Order Comment: Speci men Type: BLOOD SPECIMENOrdering Facility: [facility] Address: [address] [place] [address] Performed By: #### 2 4323-8, 85153-6, 1988-03, ####[facility] LABORATORYCLIA [id number] [address] [place] [facility] AST [Catalytic activity/Vol] 14 U/L Normal 13-35 [facility] Comment on above: Order Comment: Speci men Type: BLOOD SPECIMENOrdering Facility: [facility] Address: [address] [place] [address] Performed By: #### 2 4323-8, 18282-8, 1988-03, 57633-3 ####[facility] LABORATORYCLIA [id number] [place] [address] [place] Bilirubin [Mass/Vol] 0.2 mg/dL Normal 0.2-1.[address] [facility] Comment on above: Order Comment: Speci men Type: BLOOD SPECIMENOrdering Facility: [facility] Address: [facility] [place] [address] Performed By: #### 2 4323-8, 63190-2, 1988-03, ####V[facility] LABORATORYCLIA [id number] [place] [address] [place] Calcium [Mass/Vol] 9.3 mg/dL Normal 8.5-10.2 [facility] Comment on above: Order Comment: Speci men Type: BLOOD SPECIMENOrdering Facility: [facility] Address: [address] [place] [address] Performed By: #### 2 4323-8, 54810-9, 1988-03, ####[facility] LABORATORYCLIA [id number] [place] [address] [place] Chloride [Moles/Vol] 96 mmol/L Low 98-[address] [facility] Comment on above: Order Comment: Speci men Type: BLOOD SPECIMENOrdering Facility: [facility] Address: [address] [place] [address] Performed By: #### 2 4323-8, , 1988-03, ####[facility] LABORATORYCLIA [id number] [place] [address] [place] CO2 [Moles/Vol] 25 mmol/L Normal 22-30 [facility] Comment on above: Order Comment: Speci men Type: BLOOD SPECIMENOrdering Facility: [facility] Address: [address] [place] [address] Performed By: #### 2 4323-8, 68562-9, 1988-03, ####[facility] LABORATORYCLIA [id number] [place] [address] [place] Creatinine [Mass/Vol] 1.02 mg/dL High 0.58-0.96 [facility] Comment on above: Order Comment: Speci men Type: BLOOD SPECIMENOrdering Facility: [facility] Address: [address] [place] [address] Performed By: #### 2 4323-8, 45635-8, 1988-03, ####[facility] LABORATORYCLIA [id number] [place] [id number] [place] Creatinine and Glomerular filtration rate.predicted panel (S/P/Bld) 53 mL/min/1.73m??? Low >=60 [facility] Comment on above: Order Comment: Fan meade Type: BLOOD SPECIMENOrdering Facility: [facility] Address: [address] [place] [address] Result Comment: Hilda mated Glomerular Filtration Rate [...] actual GFR. Performed By: #### 2 4323-8, 34427-8, 1988-03, ####[facility] LABORATORYCLIA [id number] [place] [id number] [place] Glucose [Mass/Vol] 314 mg/dL High 74-99 [facility] Comment on above: Order Comment: Fan meade Type: BLOOD SPECIMENOrdering Facility: [facility] Address: [address] [place] [address] Result Comment: The [place] [employer] (ADA) provides guidance for cutoff [...] Standards of Medical Care in Diabetes 2016, [place] [employer]. Diabetes Care. 2016.39(Suppl 1). Performed By: #### 2 4323-8, 23402-9, 1988-03, ####[facility] LABORATORYCLIA [id number] [place] [address] [place] Potassium [Moles/Vol] 4.7 mmol/L Normal 3.7-5.1 [facility] Comment on above: Order Comment: Speci men Type: BLOOD SPECIMENOrdering Facility: [facility] [facility] Address: [address] [place] [address] Performed By: #### 2 4323-8, 62918-3, 1988-03, 78452-3 ####[facility] LABORATORYCLIA [id number] [place] [id number] [place] Protein [Mass/Vol] 6.4 g/dL Normal 6.3-8.0 [facility] Comment on above: Order Comment: Speci men Type: BLOOD SPECIMENOrdering Facility: [facility] Address: [address] [place] [address] Performed By: #### 2 4323-8, 12114-9, 1988-03, ####[facility] LABORATORYCLIA [id number] [address] [place] Sodium [Moles/Vol] 134 mmol/L Low 136-144 [facility] Comment on above: Order Comment: Speci men Type: BLOOD SPECIMENOrdering Facility: [facility] Address: [address] [place] [address] Performed By: #### 2 4323-8, 45708-8, 1988-03, 92584-7 ####[facility] LABORATORYCLIA [id number] [place] [id number] [place] Urea nitrogen [Mass/Vol] 37 mg/dL High 7-21 [facility] Comment on above: Order Comment: Speci men Type: BLOOD SPECIMENOrdering Facility: [facility] Address: [address] [place] [address] Performed By: #### 2 4323-8, 21746-1, 1988-03, ####VILLARREAL LABORATORYCLIA [id number] [place] [address] [place] ED PROV NOTEon 11-21-2024 ED PROV NOTE Normal [facility] ED Triage Noteon 11-21-2024 ED Triage Note Normal [facility] HbA1c (Bld)on 11-21-2024 Average glucose Estimated from glycated hemoglobin (Bld) [Mass/Vol] 252 mg/dL Normal [facility] Comment on above: Order Comment: Fan meade Type: BLOOD SPECIMENOrdering Facility: [facility] Address: [address] [place] [address] Result Comment: eAG: (Estimated average glucose) is a calculated value from HgbA1c and is personal banking representative of the average blood glucose level in the last 2-3 month period. Performed By: #### 5 5454-3 ####[facility] LABCLIA [id number] [address] [place]#### 06755-2 ####[facility]ITAL[facility] [id number] [address] [place] HbA1c (Bld) [Mass fraction] 10.4 % High 4.3-5.6 [facility] Comment on above: Order Comment: Fna meade Type: BLOOD SPECIMENOrdering Facility: [facility] Address: [address] [place] [address] Result Comment: Amer [place] Diabetes Association guidelines indicate that patients with HgbA1c in the range 5.7-6.4% are at increased risk for development of diabetes, and intervention by lifestyle modification may be beneficial. HgbA1c greater or equal to 6.5% is considered diagnostic of diabetes. Performed By: #### 5 5454-3 ####[facility] LABCLIA [id number] [address] [place]#### 11096-5 ####[facility] LABORATORYCLIA [id number] [address] STATES [facility] NT-proBNP [facility] 11-21 Natriuretic peptide.B prohormone N-Terminal [Mass/Vol] 1157 pg/mL High <450 [facility] Comment on above: Order Comment: Fan meade Type: BLOOD SPECIMENOrdering Facility: [facility] Address: [address] [place] [address] Performed By: #### 2 4323-8, 46938-8, 1988-03, ####[facility] LABORATORYCLIA [id number] [address] Procalcitonin SerPl-mCncon 0 11-21-2024 Procalcitonin [Mass/Vol] 0.14 ng/mL High <0.09 [facility] Comment on above: Order Comment: Speci men Type: BLOOD SPECIMENOrdering Facility: [facility] Address: [address] [place] [address] Result Comment: For a guided interpretation of test results, please visit the Change in Procalcitonin Calculator, [email or web address]. Performed By: #### 2 4323-8, 22711-7, 1988-03, ####[facility] LABORATORYCLIA [id number] [address] [place] SEPSIS LACTATE W/ REFLEX (IN ITIAL)on 11-21-2024 Lactate [Moles/Vol] 2.2 mmol/L High 0.5-2.0 [facility] Comment on above: Order Comment: Speci men Type: BLOOD SPECIMENOrdering Facility: [facility] Address: [address] [place] [address] Performed By: #### S LACTR ####[facility] LABORATORYCLIA [id number] [address] [place] XR ANKLE 3V AP/LAT/OBL RTon 11-21-2024 XR ANKLE 3V AP/LAT/OBL RT Normal [facility] CBC W Auto Differential pane l (Bld)on 11-19-2024 Basophils (Bld) [#/Vol] 0.05 10*3/uL Normal <0.11 [facility] Comment on above: Order Comment: Speci men Type: BLOOD SPECIMENOrdering Facility: [facility] Address: [address] [place] [address] Performed By: #### 5 7021-8 ####[facility] LABCLIA [id number] [address] [place] Basophils/100 WBC (Bld) 0.5 % Normal [facility] Comment on above: Order Comment: Speci men Type: BLOOD SPECIMENOrdering Facility: [facility] Address: [address] [place] [address] Performed By: #### 5 7021-8 ####[facility] LABCLIA [id number] [place] [address] [place] Differential cell count method Nom (Bld) Auto Normal [facility] Comment on above: Order Comment: Speci men Type: BLOOD SPECIMENOrdering Facility: [facility] Address: [address] [place] [address] Performed By: #### 5 7021-8 ####[facility] LABCLIA [id number] [place] [address] [place] Eosinophils (Bld) [#/Vol] 0.12 10*3/uL Normal <0.46 [facility] Comment on above: Order Comment: Speci men Type: BLOOD SPECIMENOrdering Facility: [facility] Address: [address] [place] [address] Performed By: #### 5 7021-8 ####[facility] LABCLIA [id number] [place] [address] [place] Eosinophils/100 WBC (Bld) 1.3 % Normal [facility] Comment on above: Order Comment: Speci men Type: BLOOD SPECIMENOrdering Facility: [facility] Address: [address] [place] [address] Performed By: #### 5 7021-8 ####[facility] LABCLIA [id number] [place] [address] [place] Erythrocyte distribution width (RBC) [Ratio] 14.8 % Normal 11.5-15.0 [facility] Comment on above: Order Comment: Speci men Type: BLOOD SPECIMENOrdering Facility: [facility] Address: [address] [place] [address] Performed By: #### 5 7021-8 ####[facility] LABCLIA [id number] [place] [address] [place] Hematocrit (Bld) [Volume fraction] 35.8 % Low 36.0-46.0 [facility] Comment on above: Order Comment: Speci men Type: BLOOD SPECIMENOrdering Facility: [facility] Address: [address] [place] [address] Performed By: #### 5 7021-8 ####[facility] LABCLIA [id number] [place] [address] [place] Hemoglobin (Bld) [Mass/Vol] 11.5 g/dL Normal 11.5-15.5 [facility] Comment on above: Order Comment: Speci men Type: BLOOD SPECIMENOrdering Facility: [facility] Address: [address] [place] [address] Performed By: #### 5 7021-8 ####[facility] LABIA [id number] [place] [address] [place] Immature granulocytes (Bld) [#/Vol] 0.07 10*3/uL Normal <0.10 [facility] Comment on above: Order Comment: Speci men Type: BLOOD SPECIMENOrdering Facility: [facility] Address: [address] [place] [address] Performed By: #### 5 7021-8 ####[facility] LABIA [id number] [place] [address] [place] Immature granulocytes/100 WBC (Bld) 0.7 % Normal [facility] Comment on above: Order Comment: Speci men Type: BLOOD SPECIMENOrdering Facility: [facility] Address: [address] [place] [address] Performed By: #### 5 7021-8 ####[facility] LABIA [id number] [place] [address] [place] Lymphocytes (Bld) [#/Vol] 1.19 10*3/uL Normal 1.00-4.00 [facility] Comment on above: Order Comment: Speci men Type: BLOOD SPECIMENOrdering Facility: [facility] Address: [address] [place] [address] Performed By: #### 5 7021-8 ####[facility] LABIA [id number] [place] [address] [place] Lymphocytes/100 WBC (Bld) 12.7 % Normal [facility] Comment on above: Order Comment: Speci men Type: BLOOD SPECIMENOrdering Facility: [facility] Address: [address] [place] [address] Performed By: #### 5 7021-8 ####[facility] LABIA [id number] [place] [address] [place] MCH (RBC) [Entitic mass] 28.0 pg Normal 26.0-34.0 [facility] Comment on above: Order Comment: Speci men Type: BLOOD SPECIMENOrdering Facility: [facility] Address: [address] [place] [address] Performed By: #### 5 7021-8 ####[facility] LABIA [id number] [place] [address] [place] MCHC (RBC) [Mass/Vol] 32.1 g/dL Normal 30.5-36.0 [facility] Comment on above: Order Comment: Speci men Type: BLOOD SPECIMENOrdering Facility: [facility] Address: [address] [place] [address] Performed By: #### 5 7021-8 ####[facility] LABIA [id number] [place] [address] [place] MCV (RBC) [Entitic vol] 87.1 fL Normal 80.0-100.0 [facility] Comment on above: Order Comment: Speci men Type: BLOOD SPECIMENOrdering Facility: [facility] Address: [address] [place] [address] Performed By: #### 5 7021-8 ####[facility] LABCLIA [id number] [place] [address] [place] Monocytes (Bld) [#/Vol] 0.67 10*3/uL Normal <0.87 [facility] Comment on above: Order Comment: Speci men Type: BLOOD SPECIMENOrdering Facility: [facility] Address: [address] [place] [address] Performed By: #### 5 7021-8 ####[facility] LABCLIA [id number] [place] [address] [place] Monocytes/100 WBC (Bld) 7.1 % Normal [facility] Comment on above: Order Comment: Speci men Type: BLOOD SPECIMENOrdering Facility: [facility] Address: [address] [place] [address] Performed By: #### 5 7021-8 ####[facility] LABCLIA [id number] [place] [address] [place] Neutrophils (Bld) [#/Vol] 7.29 10*3/uL Normal 1.45-7.50 [facility] Comment on above: Order Comment: Speci men Type: BLOOD SPECIMENOrdering Facility: [facility] Address: [address] [place] [address] Performed By: #### 5 7021-8 ####[facility] LABCLIA [id number] [place] [address] [place] Neutrophils/100 WBC (Bld) 77.7 % Normal [facility] Comment on above: Order Comment: Speci men Type: BLOOD SPECIMENOrdering Facility: [facility] Address: [address] [place] [address] Performed By: #### 5 7021-8 ####[facility] LABCLIA [id number] [address] [id number] [address] [place] Nucleated RBC (Bld) [#/Vol] 10*3/uL Normal <0.01 [facility] Comment on above: Order Comment: Speci men Type: BLOOD SPECIMENOrdering Facility: [facility] Address: [address] [place] [address] Performed By: #### 5 7021-8 ####[facility] LABCLIA [id number] [place] [address] [place] Nucleated RBC/100 WBC (Bld) [Ratio] 0.0 /100 WBC Normal [facility] Comment on above: Order Comment: Speci men Type: BLOOD SPECIMENOrdering Facility: [facility] Address: [address] [place] [address] Performed By: #### 5 7021-8 ####[facility] LABCLIA [id number] [place] [address] [place] Platelet mean volume (Bld) [Entitic vol] 9.6 fL Normal 9.0-12.7 [facility] Comment on above: Order Comment: Speci men Type: BLOOD SPECIMENOrdering Facility: [facility] Address: [address] [place] [address] Performed By: #### 5 7021-8 ####[facility] LABIA [id number] [place] [address] [place] Platelets (Bld) [#/Vol] 405 10*3/uL High 150-400 [facility] Comment on above: Order Comment: Speci men Type: BLOOD SPECIMENOrdering Facility: [facility] Address: [address] [place] [address] Performed By: #### 5 7021-8 ####[facility] LABCLIA [id number] [place] [address] [place] RBC (Bld) [#/Vol] 4.11 10*6/uL Normal 3.90-5.20 [facility] Comment on above: Order Comment: Speci men Type: BLOOD SPECIMENOrdering Facility: [facility] Address: [address] [place] [address] Performed By: #### 5 7021-8 ####[facility] LABIA [id number] [place] [address] [place] WBC (Bld) [#/Vol] 9.39 10*3/uL Normal 3.70-11.00 [facility] Comment on above: Order Comment: Speci men Type: BLOOD SPECIMENOrdering Facility: [facility] Address: [address] [place] [address] Performed By: #### 5 7021-8 ####[facility] LABIA [id number] [place] [address] [place] Ferritin SerPl-ncon 2024 Ferritin [Mass/Vol] 39.6 ng/mL Normal 14.7-205.1 [facility] Comment on above: Order Comment: Speci men Type: BLOOD SPECIMENOrdering Facility: [facility] Address: [address] [place] [address] Performed By: #### 5 0190-8, 2276-4 ####[facility] LABIA [id number] [place] [address] [place] Iron and Iron binding capaci ty panelon 11-19-2024 Iron [Mass/Vol] 65 ug/dL Normal 41-186 [facility] Comment on above: Order Comment: Speci men Type: BLOOD SPECIMENOrdering Facility: [facility] Address: [address] [place] [address] Performed By: #### 5 0190-8, 2276-4 ####[facility] LABIA [id number] [place] [address] [place] Iron binding capacity [Mass/Vol] 392 ug/dL High 232-386 [facility] Comment on above: Order Comment: Speci men Type: BLOOD SPECIMENOrdering Facility: [facility] Address: [address] [place], [place] [id number] Performed By: #### 5 0190-8, 2276-4 ####[facility] LABCLIA [id number] [place] [id number] [place] Iron/TIBC [Molar ratio] 16.6 % Normal 15.0-57.0 [facility] Comment on above: Order Comment: Speci men Type: BLOOD SPECIMENOrdering Facility: [facility] Address: [address] [facility] [place] [id number] Performed By: #### 5 0190-8, 2276-4 ####[facility] LABCLIA [id number] [place] [address] [place] MR Ankle - right WO contrast on 11-19-2024 IMPRESSION: Nonspecific circumferential subcutaneous/soft tissue edema involving the distal leg and ankle. Muscle fatty changes and edema which may be related to disuse. Moderate midfoot osteoarthritis. No evidence of inflammatory arthritis. Medical Technologist Chief: PHU Transcribe Date/Time: Nov 19 2024 10:47A Dictated by : CHANDNI ZIMMERMAN MD This examination was interpreted and the report reviewed and electronically signed by: LAZARO OHARA MD on Nov 19 2024 1:28PM [facility] DIVISION OF RADIOLOGY * * *Final Report* * * DATE OF EXAM: Nov 19 2024 10:08AM [facility] 0164 - MRI ANKLE WO IVCON RT [...] RADIOLOGY Provider, [facility] - 11/19/2024 * * *Final [...] midfoot osteoarthritis. No evidence of inflammatory arthritis. Medical Technologist Chief: PSCB Transcribe Date/Time: Nov 19 2024 10:47A Dictated by : CHANDNI ZIMMERMAN MD This examination was interpreted and the report reviewed and electronically signed by: LAZARO OHARA MD on Nov 19 2024 1:28PM EST [facility] Radiology [facility]ative[facility] Ankle - right WO contrast Ordered By: Ccf Provider on 11-19-2024 [facility] MRI ANKLE WO IVCON RTon MRI [...] midfoot osteoarthritis. No evidence of inflammatory arthritis. Medical Technologist Chief: PHU Transcribe Date/Time: Nov 19 2024 10:47A Dictated by : CHANDNI ZIMMERMAN MD This examination was interpreted and the report reviewed and electronically signed by: LAZARO OHARA MD on Nov 19 2024 1:28PM EST [id number] Normal [facility] Zinc SerPl-mCncon 11-19-2024 Zinc [Mass/Vol] 55 ug/dL Low 60-120 [facility] Comment on above: Order Comment: Speci men Type: BLOOD SPECIMEN [facility] Address: [address] [place] [address] Result Comment: This test was developed, and its performance characteristics determined by the [facility] Department of Pathology and Laboratory Medicine. It has not been cleared or approved by the FDA. The [facility] Department of Pathology and Laboratory Medicine is regulated under CLIA as qualified to perform high-complexity testing. This test is used for clinical purposes. It should not be regarded as investigational or for research. Performed By: #### 5 763-8 #### [facility] CLIA [id number] [address] [place] [address] OF [facility] Arti 11-06-2024 JACINTA Telephone ([facility]) YUSUF MEDINA ([id number]) 1935 F [birth year] Date Time Provider Department 11/06/24 WILLIE KAUR [facility] During your visit today, we recorded [...] this patient by: CAREGIVER José Miguel Swanson [facility] Problem List As Of [...] 07/17/2013 05/11/2016 (more content not included)... 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 Patient is leaving to [place] for 2 weeks I will schedule lab [...] BLOOD COUNT AND DIFFERENTIAL [SQCBCDIF] Order #: [id number] FUTURE IRON AND TIBC [SQIRON] Order #: [id number] FUTURE FERRITIN [SQFERR] Order #: [id number] FUTURE ZINC BLD [SQZINC] Order #: [id number] FUTURE Prescriptions as of 11/05/2024 - meloxicam (MOBIC) 15 mg tablet TAKE 1 TABLET BY MOUTH ONCE DAILY NEEDED FOR PAIN. DO NOT COMBINE WITH DICLOFENAC GEL - traZODone (DESYREL) 50 mg tablet Take 1 tablet by mouth at bedtime as needed for sedation. - blood sugar diagnostic ([employer]TOUCH ULTRA TEST) test strip Test blood sugar [...] this patient by: CAREGIVER José Miguel Swanson [facility] Problem List As Of [...] [N18.9] 05/11/2016 (more content not included)... Normal [facility] CNOVon 11-01-2024 CNOV Office Visit ([facility] ) YUSUF MEDINA ([id number]) 1935 F [place] Date Time Provider Department 11/01/24 2:50 PM SIMONE KEVIN [facility] During your visit today, we recorded the [...] L REMV CATARACT EXTRACAP,INSERT LENS Bilateral 2020 [facility] Family History: FAMILY HISTORY Problem Relation Age of Onset None Brother None Sister None Brother Medications: Current Outpatient Medications Medication Sig meloxicam (MOBIC) 15 mg tablet TAKE 1 TABLET BY MOUTH ONCE DAILY NEEDED FOR PAIN. DO NOT COMBINE WITH DICLOFENAC GEL traZODone (DESYREL) 50 mg tablet Take 1 tablet by mouth at bedtime as needed for sedation. blood sugar diagnostic ([employer] TechnologiesUCH ULTRA TEST) test strip Test blood sugar [...] Plan: Rig (more content not included)... Normal [facility] CRP SerPl-mCncon 11-01-2024 CRP [Mass/Vol] 0.3 mg/dL Normal <0.9 [facility] Comment on above: Order Comment: Specleroy meade Type: BLOOD SPECIMEN [facility] Address: [address] [place] [address] Performed By: #### 2 132-9, 2284-8 #### [facility] CLIA [id number] [address] [place] [address] [place] ESR Westergren method (Bld) [Velocity]on 11-01-2024 ESR (Bld) [Velocity] 36 mm/h [facility] Comment on above: Order Comment: Fan meade Type: BLOOD SPECIMEN [facility] Address: [address] [place] [address] Performed By: #### 5 763-8 #### [facility] CLIA [id number] [address] [place] [address] [place] XR ANKLE 3V [...] planus and mild to moderate midfoot osteoarthritis. Medical Technologist Chief: [facility] Transcribe Date/Time: Nov 02 2024 11:17A Dictated by : SHARYN UMANA MD This examination was interpreted and the report reviewed and electronically signed by: SHARYN UMANA MD on Nov 02 2024 11:20AM EST [id number] Normal [facility] XR FOOT 3V AP/LAT/OBL RTon 1 [...] planus and mild to moderate midfoot osteoarthritis. Medical Technologist Chief: [facility] Transcribe Date/Time: Nov 02 2024 11:17A Dictated by : SHARYN UMANA MD This examination was interpreted and the report reviewed and electronically signed by: SHARYN UMANA MD on Nov 02 2024 11:20AM EST [id number] Normal [facility] CNOVon 10-29-2024 CNOV Office Visit ([facility] ) YUSUF MEDINA ([id number]) 1935 F [place][birth year] Date Time Provider Department 10/29/24 4:20 PM AB BENSON [facility] During your visit today, we recorded the following information about you: Temperature Pulse Blood pressure Weight 99.3 degrees 66/minute 159/72 48 kg Ab Benson MD 11/04/2024 7:29 PM Signed This note was created using Cranite Systemsriter. Subjective Yusuf Medina is a 88 year [...] needed for sedation. - blood sugar diagnostic ([employer]U ULTRA TEST) test strip Test blood sugar [...] this patient by: CAREGIVER José Miguel Swanson [facility] Problem List As Of [...] intervert*10/31/2010 [employer] (more content not included)... Normal [facility] CNOVon 09-20-2024 CNOV Office Visit (OTMB[facility] ) YUSUF MEDINA ([id number]) 1935 F [place] Date Time Provider Department [...] L REMV CATARACT EXTRACAP,INSERT LENS Bilateral 2020 [facility] Family History: FAMILY HISTORY Problem Relation [...] malleolus NTTP (more content not included)... Normal [facility] BCR/ABL1 P210 AND P190 DIAGN OSTIC PCR BLOODon 09-19-2024 BCR/ABL1 P210 AND P190 DIAGNOSTIC PCR BLOOD RESULT BCR/ABL1 p210 and p190 Diagnostic PCR Laboratory Accession Number: [id number] Sample Type: Peripheral Blood Result: NOT DETECTED; [...] this sample, and cDNA prepared by [employer]. Real time PCR was performed in two separate reactions, using primers for e13a2 and/or e14a2 BCR/ABL1 fusion transcripts and ABL1 transcripts for p210 detection and primers for e1a2 BCR/ABL1 fusion transcripts and ABL1 transcripts for p190 detection ([employer] BCR/ABL IS assay, [employer], [place], [place]). This assay has a limit [...] developed and its performance characteristics determined by [facility]'s Pathology and Laboratory Medicine Department. It has not been cleared or approved by the FDA. [facility]'s Pathology and Laboratory Medicine Department is regulated under CLIA as certified to perform high-complexity testing. This test is used for clinical purposes. It should not be regarded as investigational or for research. Testing and interpretation performed at [facility], [address] [place] [address]. CLIA Number: [id number] As reviewed by José Miguel Persaud [facility] METHYLMALONIC ACIDon 024 Methylmalonate [Moles/Vol] 0.29 umol/L NINF - 0.40 umol/L [facility] Comment on above: This test was develo ped, and its performance characteristics determined by the [facility] Department of Pathology and Laboratory Medicine. It has not been cleared or approved by the FDA. The [facility] Department of Pathology and Laboratory Medicine is regulated under CLIA as qualified to perform high-complexity testing. This test is used for clinical purposes. It should not be regarded as investigational or for research. Methylmalonate [Moles/Vol]on 09-19-2024 Interpretation and review of laboratory results [facility] XR CALCANEUS 2V AXIAL/LAT RT on [...] planus with calcaneal enthesophytes and bone demineralization. Medical Technologist Chief: PSCB Transcribe Date/Time: Sep 21 2024 11:34A Dictated by : ALEJANDRA MONCADA MD This examination was interpreted and the report reviewed and electronically signed by: ALEJANDRA MONCADA MD on Sep 21 2024 11:39AM EST [id number] Normal [facility] XR FOOT 3V AP/LAT/OBL RTon 1 [...] toes with hammertoe deformities. 4. Calcaneal enthesophytes. Medical Technologist Chief: PSCB Transcribe Date/Time: Sep 21 2024 11:40A Dictated by : ALEJANDRA MONCADA MD This examination was interpreted and the report reviewed and electronically signed by: ALEJANDRA MONCADA MD on Sep 21 2024 11:59AM EST [id number] Normal [facility] CCP ANTIBODY IGGOrdered By: Robin Zavala on 09-18-2024 Cyclic citrullinated peptide IgG Qn NINF [facility] CNPNon 09-18-2024 CNPN Telephone (HEMAST) YUSUF MEDINA ([id number]) [address] [facility] Date Time Provider Department 09/18/24 GRUPO MENDEZ HEMAST During your visit today, we recorded the following information about you: Grupo Mendez MD 09/18/2024 9:19 PM Signed Results were reviewed. I spoke with [id number]-rue Demetria about suspicion for calcaneal bone fracture. [...] initial encounter [S92.001A] Order(s):CONSULT PANEL TO ORTHOPAEDICS [428592] Order #: [id number]: 1 FUTURE Prescriptions as of 09/18/2024 - [...] this patient by: CAREGIVER José Miguel Swanson [facility] Problem List As Of [...] dependent (NIDDM*03/07 (more content not included)... Normal [facility] COPPER BLOODon 09-18-2024 Copper [Mass/Vol] 128 ug/dL 80 - 155 ug/dL [facility] Comment on above: This test was develo ped, and its performance characteristics determined by the [facility] Department of Pathology and Laboratory Medicine. It has not been cleared or approved by the FDA. The [facility] Department of Pathology and Laboratory Medicine is regulated under CLIA as qualified to perform high-complexity testing. This test is used for clinical purposes. It should not be regarded as investigational or for research. Interpretation and review of laboratory results Normal [facility] Cyclic citrullinated peptide IgG QnOrdered By: Robin Zavala on 09-18-2024 CCP Antibody IgG Qualitative Negative Negative [facility] Interpretation and review of laboratory results Normal [facility] This test is used as aid in diagnosis of Rheumatoid arthritis (RA). A negative result cannot rule out RA where clinically suspected. Clinical correlation is required. The following results were obtained with an [employer] QUANTA Lite CCP IgG JOE. Cyclic Citrullinated Peptide IgG values obtained with different manufacturers' assay methods may not be used interchangeably. The magnitude of the reported IgG levels cannot be correlated to an endpoint titer. [facility] FERRITINon 09-18-2024 Ferritin [Mass/Vol] 59.9 ng/mL 14.7 - 2 05.1 ng/mL [facility] FOLATE, SERUMon 09-18-2024 Folate [Mass/Vol] 18.8 ng/mL 4.7 - PINF ng/mL [facility] Ferritin [Mass/Vol]on 2023 Interpretation and review of laboratory results [facility] HOMOCYSTEINEon 09-18-2024 Homocysteine [Moles/Vol] 21.2 umol/L High NINF - 15.1 umol/L [facility] Homocysteine [Moles/Vol]on 11-18-2023 Interpretation and review of laboratory results Abnormal [facility] Iron and Iron binding capaci ty panelon 09-18-2024 Interpretation and review of laboratory results Abnormal [facility] Iron [Mass/Vol] 29 ug/dL Low 41 - 186 ug/dL [facility] Iron binding capacity [Mass/Vol] 407 ug/dL High 232 - 386 ug/dL [facility] Iron/TIBC [Molar ratio] 7.1 % Low 15.0 - 57.0 % [facility] No Panel InformationOrdered By: Cheryl Sinha on 09-18-2024 [facility] No Panel Informationon 09-18 Interpretation and review of laboratory results Normal [facility] Nuclear Ab IA Ql (S)Ordered By: Lien Matson on 09-18-2024 RUBEN Scr Qual Positive Abnormal Negative [facility] Comment on above: The qualitative anti nuclear antibody screen test performed using the following antigens: dsDNA, Chromatin, Ribosomal P, SS-A 60, SS-A 52, SS-B, Sm, SmRNP, FAMILY AND CONSUMER SCIENCE PROFESSOR A, FAMILY AND CONSUMER SCIENCE PROFESSOR 68, Scl-70, Nadege-1, and Centromere B. Methodology: Multiplex flow immunoassay. Interpretation and review of laboratory results Abnormal [facility] URIC ACIDon 09-18-2024 Urate [Mass/Vol] 5.6 mg/dL 2.5 - 6.6 mg/dL [facility] US DVT LOWER RTon 09-18-2024 US DVT LOWER RT Normal [facility] Lower extremity vein - ri ghton 09-18-2024 IMPRESSION: Negative study for proximal DVT in the right lower extremity. Negative study for calf DVT in the right lower extremity. Negative study for superficial thrombophlebitis in the imaged segments of the right lower extremity. Medical Technologist Chief: PHU Transcribe Date/Time: Sep 18 2024 9:14A Dictated by : ZACH THOMPSON MD This examination was interpreted and the report reviewed and electronically signed by: ZACH THOMPSON MD on Sep 18 2024 9:20AM [facility] * * *Final Report* * * [...] spontaneous respirophasic flow. Normal response to augmentation. [facility] Provider, [facility] - [...] imaged segments of the right lower extremity. Medical Technologist [facility] Transcribe Date/Time: Sep 18 2024 9:14A Dictated by : ZACH THOMPSON MD This examination was interpreted and the report reviewed and electronically signed by: ZACH THOMPSON MD on Sep 18 2024 9:20AM EST [facility] Radiology Study observation (narrative) [facility] US Lower extremity vein - ri ghtOrdered By: Ccf Provider on 09-18-2024 [facility] Urate [Mass/Vol]on Interpretation and review of laboratory results Normal [facility] VITAMIN B12on 09-18-2024 Cobalamin (Vitamin B12) [Mass/Vol] 433 pg/mL 232 - 1245 pg/mL [facility] XR Ankle - right AP and Late ral and obliqueon 09-18-2024 IMPRESSION: Marked right ankle soft tissue swelling. Osteopenia and suspicion of nondisplaced calcaneus fracture. Degenerative changes, calcaneal enthesophytes, and pes planus. Medical Technologist Chief: [facility] Transcribe Date/Time: Sep 18 2024 12:20P Dictated by : GERTRUDIS MONCADA MD This examination was interpreted and the report reviewed and electronically signed by: GERTRUDIS MONCADA MD on Sep 18 2024 12:22PM [facility] * * *Final Report* [...] Degenerative changes, calcaneal enthesophytes, and pes planus. Medical Technologist Chief: PSCMary Transcribe Date/Time: Sep 18 2024 12:20P Dictated by : GERTRUDIS MONCADA MD This examination was interpreted and the report reviewed and electronically signed by: GERTRUDIS MONCADA MD on Sep 18 2024 12:22PM EST [facility] XR Ankle - right AP and Late ral and obliqueOrdered By: Ccf Provider on 09-18-2024 [facility] ZINC BLDOrdered By: Cheryl rodriguez on 09-18-2024 Zinc [Mass/Vol] 55 ug/dL Low 60 - 120 ug/dL [facility] Comment on above: This test was develo ped, and its performance characteristics determined by the [facility] Department of Pathology and Laboratory Medicine. It has not been cleared or approved by the FDA. The [facility] Department of Pathology and Laboratory Medicine is regulated under CLIA as qualified to perform high-complexity testing. This test is used for clinical purposes. It should not be regarded as investigational or for research. Zinc [Mass/Vol]Ordered By: Roxane Sinha on 09-18-2024 Interpretation and review of laboratory results Abnormal [facility] RUBEN BY IFA SCREENon 09-17-20 24 Nuclear Ab pattern (S) [Interp] Nuclear homogeneous Normal [facility] Comment on above: Order Comment: Speci men Type: BLOOD SPECIMEN Ordering Facility: [facility] Address: [address] [place] [address] Performed By: #### 5 7021-8 #### [facility] CLIA [id number] [address] [place] [address] [place] Nuclear Ab Ql (S) Positive Abnormal Negative [facility] Comment on above: Order Comment: Speci men Type: BLOOD SPECIMEN Ordering Facility: [facility] Address: [address] [place] [address] Result Comment: Anti -nuclear antibody test is used as an aid in diagnosis of systemic autoimmune diseases. Where positive and clinically warranted, follow-up using disease-specific testing is recommended. Low positive titers are not uncommon with advanced age, certain chronic infections, and malignancies among others. Test methodology: Indirect fluorescence immunoassay (IFA) using HEp-2 cells. 1:320 Performed By: #### 5 7021-8 #### [facility] CLIA [id number] [address] [place] [address] [place] BCR/ABL1 P190 NCN P210 % IS MR BLOODon 09-17-2024 BCR/ABL1 P190 NCN(%BCR/ABL1:ABL1) N/A Normal [facility] Comment on above: Order Comment: Speci men Type: BLOOD SPECIMENOrdering Facility: [facility] Address: [address] [place] [address] Performed By: #### B CRPB1 ####[facility] LIMSCLIA [id number] [place] [address] [place]#### ISMRNCNPB ####[facility] LABCLIA [id number] [place] [address] [place] BCR/ABL1 P210 %IS N/A Normal [facility] Comment on above: Order Comment: Speci men Type: BLOOD SPECIMENOrdering Facility: [facility] Address: [address] [place] [address] Performed By: #### B CRPB1 ####[facility] LIMSCLIA [id number] [place] [address] [place]#### ISMRNCNPB ####[facility] LABCLIA [id number] [place] [address] [place] BCR/ABL1 P210 MR N/A Normal [facility] Comment on above: Order Comment: Speci men Type: BLOOD SPECIMENOrdering Facility: [facility] Address: [address] [place] [address] Performed By: #### B CRPB1 ####[facility] LIMSCLIA [id number] [address] [place]#### ISMRNCNPB ####[facility] LABCLIA [id number] [address] [place] BCR/ABL1 P210 AND P190 DIAGN OSTIC PCR BLOODon 09-17-2024 BCR/ABL1 P210 AND P190 DIAGNOSTIC PCR BLOOD RESULT Normal [facility] Comment on above: Order Comment: Speci men Type: BLOOD SPECIMENOrdering Facility: [facility] Address: [address] [place] [address] Result Comment: BCR/ ABL1 p210 and p190 Diagnostic PCR Laboratory Accession Number: [id number] Sample Type: Peripheral Blood Result: NOT DETECTED; [...] this sample, and cDNA prepared by [employer] director international. Real time PCR was performed in two separate reactions, using primers for e13a2 and/or e14a2 BCR/ABL1 fusion transcripts and ABL1 transcripts for p210 detection and primers for e1a2 BCR/ABL1 fusion transcripts and ABL1 transcripts for p190 detection (Quantide[employer] BCR/ABL IS assay, [employer], [place], [place]). This assay has a limit [...] developed and its performance characteristics determined by [facility]'s Pathology and Laboratory Medicine Department. It has not been cleared or approved by the FDA. [facility]'s Pathology and Laboratory Medicine Department is regulated under CLIA as certified to perform high-complexity testing. This test is used for clinical purposes. It should not be regarded as investigational or for research. Testing and interpretation performed at [facility], [facility] [place] [address]. CLIA Number: [id number] As reviewed by José Miguel Persaud MD Performed By: #### B CRPB1 ####[facility] LIMSCLIA [id number] [address] [place]#### ISMRNCNPB ####[facility] LABCLIA [id number] [place] [address] [place] CBC W Ordered Manual Differe ntial panel (Bld)on 09-17-2024 Basophils (Bld) [#/Vol] 0.03 10*3/uL [facility] Basophils/100 WBC (Bld) 0.3 % C [facility] Differential cell count method Nom (Bld) Auto [facility] Eosinophils (Bld) [#/Vol] 0.07 10*3/uL [facility] Eosinophils/100 WBC (Bld) 0.7 % [facility] Erythrocyte distribution width (RBC) [Ratio] 14.2 % 11.5 - 15.0 % [facility] Hematocrit (Bld) [Volume fraction] 35.2 % Low 36.0 - 46.0 % [facility] Hemoglobin (Bld) [Mass/Vol] 11.4 g/dL Low 11.5 - 15.5 g/dL [facility] Immature granulocytes (Bld) [#/Vol] 0.06 10*3/uL [facility] Immature granulocytes/100 WBC (Bld) 0.6 % [facility] Interpretation and review of laboratory results Abnormal [facility] Lymphocytes (Bld) [#/Vol] 1.42 10*3/uL [facility] Lymphocytes/100 WBC (Bld) 15.1 % [facility] MCH (RBC) [Entitic mass] 28.6 pg 26.0 - 34.0 pg [facility] MCHC (RBC) [Mass/Vol] 32.4 g/dL 30.5 - 36.0 g/dL [facility] MCV (RBC) [Entitic vol] 88.2 fL 80.0 - 100.0 fL [facility] Monocytes (Bld) [#/Vol] 0.52 10*3/uL [facility] Monocytes/100 WBC (Bld) 5.5 % C [facility] Neutrophils (Bld) [#/Vol] 7.33 10*3/uL [facility] Neutrophils/100 WBC (Bld) 77.8 % [facility] Nucleated RBC (Bld) [#/Vol] [facility] Nucleated RBC/100 WBC (Bld) [Ratio] 0.0 % /100 WBC [facility] Platelet mean volume (Bld) [Entitic vol] 9.8 fL 9.0 - 12.7 fL [facility] Platelets (Bld) [#/Vol] 409 10*3/uL High [facility] RBC (Bld) [#/Vol] 3.99 10*6/uL 3.90 - 5.2 0 m/uL [facility] WBC (Bld) [#/Vol] 9.43 10*3/uL [facility] This is an appended report. These results have been appended to a previously verified report. [facility] Basophils (Bld) [#/Vol] 0.03 10*3/uL Normal <0.11 [facility] Comment on above: Order Comment: Speci men Type: BLOOD SPECIMENOrdering Facility: [facility] Address: [address] [place] [address] Performed By: #### 1 4196-0, [id number], STEVERARDO, 49528-8 ####[facility] LABCLIA [id number] [place] [address] [place] Basophils/100 WBC (Bld) 0.3 % Normal C [facility] Comment on above: Order Comment: Speci men Type: BLOOD SPECIMENOrdering Facility: [facility] Address: [address] [place] [address] Performed By: #### 1 4196-0, [id number], STEVERARDO, 79246-2 ####[facility] LABCLIA [id number] [place] [address] [place] Differential cell count method Nom (Bld) Auto Normal [facility] Comment on above: Order Comment: Speci men Type: BLOOD SPECIMENOrdering Facility: [facility] Address: [address] [place] [address] Performed By: #### 1 4196-0, [id number], STFRZAID, 40459-7 ####[facility] LABCLIA [id number] [place] [address] [place] Eosinophils (Bld) [#/Vol] 0.07 10*3/uL Normal <0.46 [facility] Comment on above: Order Comment: Speci men Type: BLOOD SPECIMENOrdering Facility: [facility] Address: [address] [place] [address] Performed By: #### 1 4196-0, [id number], STFREV, 79199-1 ####[facility] LABCLIA [id number] [place] [address] [place] Eosinophils/100 WBC (Bld) 0.7 % Normal [facility] Comment on above: Order Comment: Speci men Type: BLOOD SPECIMENOrdering Facility: [facility] Address: [address] [place] [address] Performed By: #### 1 4196-0, [id number], STFREV, 17512-2 ####[facility] LABCLIA [id number] [place] [address] [place] Erythrocyte distribution width (RBC) [Ratio] 14.2 % Normal 11.5-15.0 [facility] Comment on above: Order Comment: Speci men Type: BLOOD SPECIMENOrdering Facility: [facility] Address: [address] [place] [address] Performed By: #### 1 4196-0, [id number], STFREV, 16768-6 ####[facility] LABCLIA [id number] [place] [address] [place] Hematocrit (Bld) [Volume fraction] 35.2 % Low 36.0-46.0 [facility] Comment on above: Order Comment: Speci men Type: BLOOD SPECIMENOrdering Facility: [facility] Address: [address] [place] [address] Performed By: #### 1 4196-0, [id number], STFREV, 83972-0 ####[facility] LABCLIA [id number] [place] [address] [place] Hemoglobin (Bld) [Mass/Vol] 11.4 g/dL Low 11.5-15.5 [facility] Comment on above: Order Comment: Speci men Type: BLOOD SPECIMENOrdering Facility: [facility] Address: [address] [place] [address] Performed By: #### 1 4196-0, [id number], STFRZAID, 49265-9 ####[facility] LABCLIA [id number] [place] [address] [place] Immature granulocytes (Bld) [#/Vol] 0.06 10*3/uL Normal <0.10 [facility] Comment on above: Order Comment: Speci men Type: BLOOD SPECIMENOrdering Facility: [facility] Address: [address] [place] [address] Performed By: #### 1 4196-0, [id number], STEVERARDO, 67671-9 ####[facility] LABCLIA [id number] [place] [address] [place] Immature granulocytes/100 WBC (Bld) 0.6 % Normal [facility] Comment on above: Order Comment: Speci men Type: BLOOD SPECIMENOrdering Facility: [facility] Address: [address] [place] [address] Performed By: #### 1 4196-0, [id number], STEVERARDO, 79820-0 ####[facility] LABCLIA [id number] [place] [address] [place] Lymphocytes (Bld) [#/Vol] 1.42 10*3/uL Normal 1.00-4.00 [facility] Comment on above: Order Comment: Speci men Type: BLOOD SPECIMENOrdering Facility: [facility] Address: [address] [place] [address] Performed By: #### 1 4196-0, [id number], STEVERARDO, 19190-4 ####[facility] LABCLIA [id number] [place] [address] [place] Lymphocytes/100 WBC (Bld) 15.1 % Normal [facility] Comment on above: Order Comment: Speci men Type: BLOOD SPECIMENOrdering Facility: [facility] Address: [address] [place] [address] Performed By: #### 1 4196-0, [id number], RADHA 26791-6 ####[facility] LABCLIA [id number] [address] STATES [facility] MCH (RBC) [Entitic mass] 28.6 pg Normal 26.0-34.0 [facility] Comment on above: Order Comment: Speci men Type: BLOOD SPECIMENOrdering Facility: [facility] Address: [address] [place] [address] Performed By: #### 1 4196-0, [id number], RADHA 13676-0 ####[facility] LABCLIA [id number] [address] [place] MCHC (RBC) [Mass/Vol] 32.4 g/dL Normal 30.5-36.0 [facility] Comment on above: Order Comment: Speci men Type: BLOOD SPECIMENOrdering Facility: [facility] Address: [address] [place] [address] Performed By: #### 1 4196-0, [id number], RADHA 28475-1 ####[facility] LABCLIA [id number] [place] [address] [place] MCV (RBC) [Entitic vol] 88.2 fL Normal 80.0-100.0 [facility] Comment on above: Order Comment: Speci men Type: BLOOD SPECIMENOrdering Facility: [facility] Address: [address] [place] [address] Performed By: #### 1 4196-0, [id number], RADHA 55914-5 ####[facility] LABCLIA [id number] [place] [address] [place] Monocytes (Bld) [#/Vol] 0.52 10*3/uL Normal <0.87 [facility] Comment on above: Order Comment: Speci men Type: BLOOD SPECIMENOrdering Facility: [facility] Address: [address] [place] [address] Performed By: #### 1 4196-0, [id number], STFRZAID, 10107-8 ####[facility] LABCLIA [id number] [place] [address] [place] Monocytes/100 WBC (Bld) 5.5 % Normal [facility] Comment on above: Order Comment: Speci men Type: BLOOD SPECIMENOrdering Facility: [facility] Address: [address] [place] [address] Performed By: #### 1 4196-0, [id number], STEVERARDO, 75018-7 ####[facility] LABCLIA [id number] [place] [address] [place] Neutrophils (Bld) [#/Vol] 7.33 10*3/uL Normal 1.45-7.50 [facility] Comment on above: Order Comment: Speci men Type: BLOOD SPECIMENOrdering Facility: [facility] Address: [address] [place] [address] Performed By: #### 1 4196-0, [id number], STEVERARDO, 57146-0 ####[facility] LABCLIA [id number] [place] [address] [place] Neutrophils/100 WBC (Bld) 77.8 % Normal [facility] Comment on above: Order Comment: Speci men Type: BLOOD SPECIMENOrdering Facility: [facility] Address: [address] [place] [address] Performed By: #### 1 4196-0, [id number], STEVERARDO, 85723-7 ####[facility] LABCLIA [id number] [place] [address] [place] Nucleated RBC (Bld) [#/Vol] 10*3/uL Normal <0.01 [facility] Comment on above: Order Comment: Speci men Type: BLOOD SPECIMENOrdering Facility: [facility] Address: [address] [place] [address] Performed By: #### 1 4196-0, [id number], STEVERARDO, 73145-2 ####[facility] LABCLIA [id number] [place] [address] [place] Nucleated RBC/100 WBC (Bld) [Ratio] 0.0 /100 WBC Normal [facility] Comment on above: Order Comment: Speci men Type: BLOOD SPECIMENOrdering Facility: [facility] Address: [address] [place] [address] Performed By: #### 1 4196-0, [id number], RADHA 55494-7 ####[facility] LABCLIA [id number] [place] [address] [place] Platelet mean volume (Bld) [Entitic vol] 9.8 fL Normal 9.0-12.7 [facility] Comment on above: Order Comment: Speci men Type: BLOOD SPECIMENOrdering Facility: [facility] Address: [address] [place] [address] Performed By: #### 1 4196-0, [id number], RADHA 61884-9 ####[facility] LABCLIA [id number] [place] [address] [place] Platelets (Bld) [#/Vol] 409 10*3/uL High 150-400 [facility] Comment on above: Order Comment: Speci men Type: BLOOD SPECIMENOrdering Facility: [facility] Address: [address] [place] [address] Performed By: #### 1 4196-0, [id number], RADHA, 61519-8 ####[facility] [id number] [place] [address] [place] RBC (Bld) [#/Vol] 3.99 10*6/uL Normal 3.90-5.20 [facility] Comment on above: Order Comment: Speci men Type: BLOOD SPECIMENOrdering Facility: [facility] Address: [address] [place] [address] Performed By: #### 1 4196-0, [id number], STFR, 73052-5 ####[facility] [id number] [place] [address] [place] WBC (Bld) [#/Vol] 9.43 10*3/uL Normal 3.70-11.00 [facility] Comment on above: Order Comment: Speci men Type: BLOOD SPECIMENOrdering Facility: [facility] Address: [address] [place] [address] Performed By: #### 1 4196-0, [id number], [facility], 31145-9 ####[facility] [id number] [address] [place] CNOVSPon 09-17-2024 CNOVSP Visit (SP) Office (HEMAST) YUSUF EMDINA ([id number]) 1935 [facility] [...] L REMV CATARACT EXTRACAP,INSERT LENS Bilateral [address] [facility] FAMILY HISTORY Problem Relation Age of [...] daily. pioglitazone (more content not included)... Normal [facility] COPPER BLOODon 09-17-2024 Copper [Mass/Vol] 128 ug/dL Normal 80-155 [facility] Comment on above: Order Comment: Speci men Type: BLOOD SPECIMEN [facility] Address: [address] [place] [address] Result Comment: This test was developed, and its performance characteristics determined by the [facility] Department of Pathology and Laboratory Medicine. It has not been cleared or approved by the FDA. The [facility] Department of Pathology and Laboratory Medicine is regulated under CLIA as qualified to perform high-complexity testing. This test is used for clinical purposes. It should not be regarded as investigational or for research. Performed By: #### 5 763-8 #### [facility] CLIA [id number] [address] [place] [address] [place] Centromere Ab IF Ql (S)on Centromere Ab Qn (S) <0.2 Normal <1.0 [facility] Comment on above: Order Comment: Speci men Type: BLOOD SPECIMEN [facility] Address: [address] [place] [address] Result Comment: Anti -centromere antibody is used as in aid in diagnosis of systemic sclerosis. Clinical correlation is required. Test Methodology: Multiplex flow immunoassay. Performed By: #### 5 7021-8 #### [facility] CLIA [id number] [address] [place] [address] [place] CENTROMERE AB QUAL Negative Normal Negative [facility] Comment on above: Order Comment: Speci halina Type: BLOOD SPECIMEN [facility] Address: [address] [place] [address] Performed By: #### 5 7021-8 #### [facility] CLIA [id number] [address] [place] [address] [place] Chromatin Ab Qnon 09-17-2024 CHROMATIN AB QUAL Negative Normal Negative [facility] Comment on above: Order Comment: Speci men Type: BLOOD SPECIMEN [facility] Address: [address] [place] [address] Performed By: #### 1 3964-2 #### [facility] CLIA [id number] [address] [place] [address] [place] Chromatin Ab SerPl-aCncon Chromatin Ab Qn <0.2 Normal <1.0 [facility] Comment on above: Order Comment: Speci men Type: BLOOD SPECIMEN [facility] Address: [address] [place] [address] Result Comment: Test Methodology: Multiplex flow immunoassay. Performed By: #### 1 3964-2 #### [facility] CLIA [id number] [address] [place] [address] [place] Cyclic citrullinated peptide IgG Qnon 09-17-2024 CCP ANTIBODY IGG QUALITATIVE Negative Normal Negative [facility] Comment on above: Order Comment: Speci men Type: BLOOD SPECIMEN [facility] Address: [address] [place] [address] Performed By: #### 5 763-8 #### [facility] CLIA [id number] [address] [place] [address] [place] DNA double strand Ab IA Qn ( S)on 09-17-2024 DNA ANTIBODY 175 IU/mL Normal <=200 [facility] Comment on above: Order Comment: Speci men Type: BLOOD SPECIMEN [facility] Address: [address] [place] [address] Result Comment: Nega tive: <200 IU/mL Equivocal: 201-300 IU/mL Moderate Positive: 301-800 IU/mL Strong Positive: >801 IU/mL Performed By: #### 5 7021-8 #### [facility] CLIA [id number] [address] [place] [address] [place] DNA ANTIBODY QUALITATIVE INTERPRETATION Negative Normal Negative [facility] Comment on above: Order Comment: Speci men Type: BLOOD SPECIMEN [facility] Address: [address] [place] [address] Performed By: #### 5 7021-8 #### [facility] CLIA [id number] [address] [place] [address] [place] EUFEMIA Jo1 Ab Ser-aCncon 2023 Nadege-1 extractable nuclear Ab Qn (S) <0.2 Normal <1.0 [facility] Comment on above: Order Comment: Speci men Type: BLOOD SPECIMEN [facility] Address: [address] [place] [address] Performed By: #### 5 7021-8 #### [facility] CLIA [id number] [address] [place] [address] [place] EUFEMIA FAMILY AND CONSUMER SCIENCE PROFESSOR Ab Ser-aCncon 2023 Ribonucleoprotein extractable nuclear Ab Qn (S) <0.2 Normal <1.0 [facility] Comment on above: Order Comment: Speci men Type: BLOOD SPECIMEN [facility] Address: [address] [place] [address] Performed By: #### 1 3964-2 #### [facility] CLIA [id number] [address] [place] [address] [place] Ribonucleoprotein extractable nuclear Ab Qn (S) 2.3 AI High <1.0 [facility] Comment on above: Order Comment: Speci men Type: BLOOD SPECIMEN [facility] Address: [address] [place] [address] Performed By: #### 5 7021-8 #### [facility] CLIA [id number] [address] [place] [address] [place] EUFEMIA SM IgG Ser-aCncon 2023 Bang extractable nuclear IgG Qn (S) <0.2 Normal <1.0 [facility] Comment on above: Order Comment: Speci men Type: BLOOD SPECIMEN [facility] Address: [address] [place] [address] Performed By: #### 5 7021-8 #### [facility] CLIA [id number] [address] [place] [address] [place] EUFEMIA SS-A Ab Ser-aCncon 09-17 Sjogrens syndrome-A extractable nuclear Ab Qn (S) <0.2 Normal <1.0 [facility] Comment on above: Order Comment: Speci men Type: BLOOD SPECIMEN [facility] Address: [address] [place] [address] Result Comment: Test Methodology: Multiplex flow immunoassay. Performed By: #### 5 7021-8 #### [facility] CLIA [id number] [address] [place] [address] [place] EUFEMIA SS-B Ab Ser-aCncon 09-17 Sjogrens syndrome-B extractable nuclear Ab Qn (S) <0.2 Normal <1.0 [facility] Comment on above: Order Comment: Speci men Type: BLOOD SPECIMEN [facility] Address: [address] [place] [address] Result Comment: Anti -SSB (anti-La) antibody is used as an aid in diagnosis of a variety of systemic autoimmune diseases, especially for Sjogren's syndrome and systemic lupus erythematosus. Clinical correlation is required. Test Methodology: Multiplex flow immunoassay. Performed By: #### 1 3964-2 #### [facility] CLIA [id number] [address] [place] [address] [place] Ferritin SerPl-mCncon 2023 Ferritin [Mass/Vol] 59.9 ng/mL Normal 14.7-205.1 [facility] Comment on above: Order Comment: Speci men Type: BLOOD SPECIMENOrdering Facility: [facility] Address: [address] [place] [address] Performed By: #### 5 0190-8, 3084-1, 2276-4 ####[facility]IA [id number] [place] [address] [place] Folate SerPl-mCncon 09-17-20 24 Folate [Mass/Vol] 18.8 ng/mL Normal >4.7 [facility] Comment on above: Order Comment: Speci men Type: BLOOD SPECIMEN [facility] Address: [address] [place] [address] Performed By: #### 2 132-9, 2284-8 #### [facility] CLIA [id number] [address] [place] [address] [place] Hcys SerPl-sCncon 09-17-2024 Homocysteine [Moles/Vol] 21.2 umol/L High <15.1 [facility] Comment on above: Order Comment: Speci men Type: BLOOD SPECIMEN [facility] Address: [address] [place] [address] Performed By: #### 5 763-8 #### [facility] CLIA [id number] [address] [place] [address] [place] IMMUNOFIXATION SCREEN, SERUM on 09-17-2024 [...] monoclonal gammopathy. Clinical correlation is necessary. Normal [facility] Comment on above: Order Comment: Fan meade Type: BLOOD SPECIMENOrdering Facility: [facility] Address: [address] [place] [address] Performed By: #### I FES ####[facility] [id number] [address] [place] MPA RESULT A poorly defined region of restricted mobility is present that may represent an M protein. Abnormal No M protein is identified. [facility] Comment on above: Order Comment: Katei halina Type: BLOOD SPECIMENOrdering Facility: [facility] Address: [address] [place] [address] Performed By: #### I FES ####[facility] [id number] [address] [place] STAFF REVIEW (MPA) Reviewed by Brianne Mosley M.D., Ph.D Normal [facility] Comment on above: Order Comment: Speci men Type: BLOOD SPECIMENOrdering Facility: [facility] Address: [address] [place] [address] Performed By: #### I [facility] ####[facility] [id number] [place] [address] [place] IMMUNOGLOBULINS,IGG,IGA,IGMo n 09-17-2024 IgA [Mass/Vol] 142 mg/dL Normal 70-400 [facility] Comment on above: Order Comment: Speci men Type: BLOOD SPECIMEN [facility] Address: [address] [place] [address] Performed By: #### 5 763-8 #### [facility] CLIA [id number] [address] [place] [address] [place] IgG [Mass/Vol] 750 mg/dL Normal 700-1600 [facility] Comment on above: Order Comment: Speci men Type: BLOOD SPECIMEN [facility] Address: [address] [place] [address] Performed By: #### 5 763-8 #### [facility] CLIA [id number] [address] [place] [address] [place] IgM [Mass/Vol] 23 mg/dL Low 40-230 [facility] Comment on above: Order Comment: Speci men Type: BLOOD SPECIMEN [facility] Address: [address] [place] [address] Performed By: #### 5 763-8 #### [facility] CLIA [id number] [address] [place] [address] [place] Iron and Iron binding capaci ty panelon 09-17-2024 Iron [Mass/Vol] 29 ug/dL Low 41-186 [facility] Comment on above: Order Comment: Speci men Type: BLOOD SPECIMENOrdering Facility: [facility] Address: [address] [place] [address] Performed By: #### 5 0190-8, 3084-1, 2276-4 ####[facility]IA [id number] [place] [id number] [place] Iron binding capacity [Mass/Vol] 407 ug/dL High 232-386 [facility] Comment on above: Order Comment: Speci men Type: BLOOD SPECIMENOrdering Facility: [facility] Address: [address] [place] [address] Performed By: #### 5 0190-8, 3083-, 2276-02 ####[facility] [id number] [place] [id number] [place] Iron/TIBC [Molar ratio] 7.1 % Low 15.0-57.0 C [facility] Comment on above: Order Comment: Speci men Type: BLOOD SPECIMENOrdering Facility: [facility] Address: [address] [place] [address] Performed By: #### 5 0190-8, 3083-, 2276-02 ####[facility]IA [id number] [place] [address] [place] Nadege-1 extractable nuclear Ab Qn (S)on 09-17-2024 NADEGE 1 ANTIBODY QUAL Negative Normal Negative [facility] Comment on above: Order Comment: Speci men Type: BLOOD SPECIMEN [facility] Address: [address] [place] [address] Result Comment: Anti -NADEGE-1 antibody is used as an aid in diagnosis of polymyositis and dermatomyositis especially with pulmonary involvement. A negative result cannot rule out polymyositis or dermatomyositis. Clinical correlation is required. Test Methodology: Multiplex flow immunoassay. Performed By: #### 5 7021-8 #### [facility] CLIA [id number] [address] [place] [address] [place] KAPPA/BOWEN,FREE,SERon 2023 Immunoglobulin light chains.kappa.free (S) [Mass/Vol] 45.2 mg/L High 3.3-19.4 [facility] Comment on above: Order Comment: Speci men Type: BLOOD SPECIMEN [facility] Address: [address] [place] [address] Result Comment: Rare ly, increased serum free light chains levels may not be detected or accurately quantified due to prozone phenomenon or in high viscosity samples using this immunoturbidimetric assay. Correlation with other laboratory results and clinical findings is recommended. The [place] Free Light Chain was performed using the Binding Site Optilite immunoturbidimetric method. Result obtained with different assay methods or kits cannot be used interchangeably. Performed By: #### 5 763-8 #### [facility] CLIA [id number] [address] [place] [address] [place] Immunoglobulin light chains.kappa/Immunoglob ulin light chains.lambda (S) [Mass ratio] 1.57 Normal 0.26-1.65 [facility] Comment on above: Order Comment: Speci halina Type: BLOOD SPECIMEN [facility] Address: [address] [place] [address] Performed By: #### 5 763-8 #### [facility] CLIA [id number] [address] [place] [address] [place] Immunoglobulin light chains.lambda.free [Mass/Vol] 28.8 mg/L High 5.7-26.3 [facility] Comment on above: Order Comment: Kateleroy meade Type: BLOOD SPECIMEN [facility] Address: [address] [place] [address] Result Comment: Rare ly, increased serum free [...] interchangeably. Performed By: #### 5 763-8 #### [facility] CLIA [id number] [address] [place] [address] [place] Methylmalonate SerPl-sCncon 09-17-2024 Methylmalonate [Moles/Vol] 0.29 umol/L Normal <=0.40 [facility] Comment on above: Order Comment: Speci men Type: BLOOD SPECIMEN [facility] Address: [address] [place] [address] Result Comment: This test was developed, and its performance characteristics determined by the [facility] Department of Pathology and Laboratory Medicine. It has not been cleared or approved by the FDA. The [facility] Department of Pathology and Laboratory Medicine is regulated under CLIA as qualified to perform high-complexity testing. This test is used for clinical purposes. It should not be regarded as investigational or for research. Performed By: #### 1 3964-2 #### [facility] CLIA [id number] [address] [place] [address] [place] Nuclear Ab IA Ql (S)on 09-17 RUBEN SCR QUAL Positive Abnormal Negative [facility] Comment on above: Order Comment: Speci men Type: BLOOD SPECIMEN [facility] Address: [address] [place] [address] Result Comment: The qualitative antinuclear antibody screen test performed using the following antigens: dsDNA, Chromatin, Ribosomal P, SS-A 60, SS-A 52, SS-B, Sm, SmRNP, FAMILY AND CONSUMER SCIENCE PROFESSOR A, FAMILY AND CONSUMER SCIENCE PROFESSOR 68, Scl-70, Nadege-1, and Centromere B. Methodology: Multiplex flow immunoassay. Performed By: #### 1 3964-2 #### [facility] CLIA [id number] [address] [place] [address] [place] PATHOLOGIST INTERPRETATION C BC/DIFFon 09-17-2024 [employer] review Mckay (Unsp spec) [Interp] Reviewed by Dominga Johnson MD [facility] Comment on above: Order Comment: Speci men Type: BLOOD SPECIMENOrdering Facility: [facility] Address: [address] [place] [address] Performed By: #### 1 4196-0, [id number], RADHA, 76906-7 ####[facility] [id number] [place] [address] [place] STAFF REVIEW, CBCDIF Normal [facility] Comment on above: Order Comment: Speci men Type: BLOOD SPECIMENOrdering Facility: [facility] Address: [address] [place] [address] Result Comment: Norm ocytic anemia without polychromasia Thrombocytosis Performed By: #### 1 4196-0, [id number], [facility], 72808-3 ####[facility] [id number] [place] [address] [place] RBC MORPHOLOGYon 09-17-2024 Platelets Estimate (Bld) [#/Vol] Increased Normal [facility] Comment on above: Order Comment: Speci men Type: BLOOD SPECIMENOrdering Facility: [facility] Address: [address] [place] [address] Performed By: #### 1 4196-0, [id number], [facility], 84550-0 ####[facility] [id number] [place] [address] [place] RBC morphology finding Nom (Bld) Reviewed: unremarkable Normal [facility] Comment on above: Order Comment: Speci men Type: BLOOD SPECIMENOrdering Facility: [facility] Address: [address] [place] [address] Performed By: #### 1 4196-0, [id number], [facility], 62443-2 ####[facility] [id number] [place] [address] [place] RETICULOCYTE COUNTon 024 Reticulocytes (Bld) [#/Vol] 0.078 10*3/uL [facility] Retics #on 09-17-2024 Reticulocytes (Bld) [#/Vol] 0.89772 10*3/uL Normal 0.018-0.100 [facility] Comment on above: Order Comment: Speci men Type: BLOOD SPECIMENOrdering Facility: [facility] Address: [address] [place] [address] Performed By: #### 1 4196-0, [id number], [facility], 59248-0 ####[facility] [id number] [place] [address] [place] Reticulocytes (Bld) [#/Vol]o n 09-17-2024 Interpretation and review of laboratory results Normal [facility] Reticulocytes/100 RBC (Bld) 2.0 % 0.4 - 2.0 % [facility] Reticulocytes/100 RBC (Bld) 2.0 % Normal 0.4-2.0 [facility] Comment on above: Order Comment: Fan meade Type: BLOOD SPECIMENOrdering Facility: [facility] Address: [address] [place] [address] Performed By: #### 1 4196-0, [id number], [facility], 24884-9 ####[facility] [id number] [place] [address] [place] Ribonucleoprotein extractabl e nuclear Ab Qn (S)on 09-17-2024 ANTI-FAMILY AND CONSUMER SCIENCE PROFESSOR QUAL Positive Abnormal Negative [facility] Comment on above: Order Comment: Fan meade Type: BLOOD SPECIMEN [facility] Address: [address] [place] [address] Performed By: #### 5 7021-8 #### [facility] CLIA [id number] [address] [place] [address] [place] RIBOSOMAL FAMILY AND CONSUMER SCIENCE PROFESSOR QUAL Negative Normal Negative [facility] Comment on above: Order Comment: Fan meade Type: BLOOD SPECIMEN [facility] Address: [address] [place] [address] Result Comment: Anti -Ribosomal RNA (Ribosomal P) antibody is used as an aid in diagnosis of systemic autoimmune diseases especially systemic lupus erythematosus and mixed connective tissue disease. Cross-reactivity with Anti-bang antibody is not uncommon. Clinical correlation is required. Test Methodology: Multiplex flow immunoassay. Performed By: #### 1 3964-2 #### [facility] CLIA [id number] [address] [place], [place] [address] [address] [place] SCL-70 extractable nuclear I gG IA Qn (S)on 09-17-2024 SCLERODERMA AB QUAL Negative Normal Negative [facility] Comment on above: Order Comment: Speci men Type: BLOOD SPECIMEN [facility] Address: [address] [place] [address] Performed By: #### 5 7021-8 #### [facility] CLIA [id number] [address] [place] [address] [place] SCLERODERMA IGG AB <0.2 Normal <1.0 [facility] Comment on above: Order Comment: Speci men Type: BLOOD SPECIMEN [facility] Address: [address] [place] [address] Result Comment: Scl- 70/Scleroderma antibody test is used as an aid in diagnosis of systemic sclerosis especially the diffuse cutaneous form. A negative result cannot rule out systemic sclerosis. The final interpretation should consider clinical picture and other test results such as anti-centromere antibody. Test Methodology: Multiplex flow immunoassay. Performed By: #### 5 7021-8 #### [facility] CLIA [id number] [address] [place] [address] [place] Sjogrens syndrome-A extracta ble nuclear Ab Qn (S)on 09-17-2024 SSA ANTIBODY QUAL Negative Normal Negative [facility] Comment on above: Order Comment: Speci men Type: BLOOD SPECIMEN [facility] Address: [address] [place] [address] Performed By: #### 5 7021-8 #### [facility] CLIA [id number] [address] [place] [address] [place] Sjogrens syndrome-B extracta ble nuclear Ab Qn (S)on 09-17-2024 SSB ANTIBODY QUAL Negative Normal Negative [facility] Comment on above: Order Comment: Speci men Type: BLOOD SPECIMEN [facility] Address: [address] [place], [place] [id number] Performed By: #### 1 3964-2 #### [facility] CLIA [id number] [address] [place] [address] [place] Bang extractable nuclear Ig G Qn (S)on 09-17-2024 SM ANTIBODY QUAL Negative Normal Negative [facility] Comment on above: Order Comment: Speci men Type: BLOOD SPECIMEN [facility] Address: [address] [place] [address] Result Comment: Anti -Sm (Bnag) antibody is used as an aid in diagnosis of systemic lupus erythematosus and its presence is associated with renal disease. A negative result cannot rule out systemic lupus erythematosus. Clinical correlation is required. Test Methodology: Multiplex flow immunoassay. Performed By: #### 5 7021-8 #### [facility] CLIA [id number] [facility] [place] [address] [place] Urate SerPl-mCncon 4 Urate [Mass/Vol] 5.6 mg/dL Normal 2.5-6.6 [facility] Comment on above: Order Comment: Speci men Type: BLOOD SPECIMENOrdering Facility: [facility] Address: [address] [place] [address] Performed By: #### 5 0190-8, 3084-1, 2276-4 ####[facility] [id number] [place] [address] [place] Vit B12 SerPl-mCncon 024 Cobalamin (Vitamin B12) [Mass/Vol] 433 pg/mL Normal 232-1245 [facility] Comment on above: Order Comment: Speci men Type: BLOOD SPECIMEN [facility] Address: [address] [place] [address] Performed By: #### 2 132-9, 2284-8 #### [facility] CLIA [id number] [address] [place] [address] [place] XR ANKLE 3V [...] Degenerative changes, calcaneal enthesophytes, and pes planus. Medical Technologist Chief: PSCMary Transcribe Date/Time: Sep 18 2024 12:20P Dictated by : GERTRUDIS MONCADA MD This examination was interpreted and the report reviewed and electronically signed by: GERTRUDIS MONCADA MD on Sep 18 2024 12:22PM EST [id number] Normal [facility] XR Ankle - right AP and Late ral and obliqueon 09-17-2024 Radiology Study observation (narrative) [facility] Zinc SerPl-mCncon 09-17-2024 Zinc [Mass/Vol] 55 ug/dL Low 60-120 [facility] Comment on above: Order Comment: Speci men Type: BLOOD SPECIMEN [facility] Address: [address] [place] [address] [place] [id number] Result Comment: This test was developed, and its performance characteristics determined by the [facility] Department of Pathology and Laboratory Medicine. It has not been cleared or approved by the FDA. The [facility] Department of Pathology and Laboratory Medicine is regulated under CLIA as qualified to perform high-complexity testing. This test is used for clinical purposes. It should not be regarded as investigational or for research. Performed By: #### 5 763-8 #### [facility] CLIA [id number] [address] [place] [address] [place] cCP IgG SerPl-aCncon 04-2 024 Cyclic citrullinated peptide IgG Qn <15 Normal <20 [facility] Comment on above: Order Comment: Speci men Type: BLOOD SPECIMEN [facility] Address: [address] [place] [address] Performed By: #### 5 763-8 #### [facility] CLIA [id number] [address] [place] [address] [place] CNOVon 09-13-2024 CNOV Office Visit ([facility] ) YUSUF MEDINA ([id number]) 1935 [facility] Date Time Provider Department 09/13/24 10:00 AM MGIDALIA CRAMER [facility] During your visit today, we recorded [...] changes, you (more content not included)... Normal [facility] Arti 08-21-2024 [facility] Telephone ([facility]) YUSUF MEDINA ([id number]) 1935 F [place] Date Time Provider Department 08/21/24 MIGDALIA CRAMER [facility] During your visit today, we recorded [...] this patient by: CAREGIVER José Miguel Swanson [facility] Problem List As Of [...] 12/07/2017 Cervic (more content not included)... Normal [facility] ALBUMIN/CREATININE RATIO, UR INEon 08-14-2024 Albumin DL <= 20 mg/L (U) [Mass/Vol] 387.7 mg/L Normal [facility] Comment on above: Order Comment: Speci men Type: URINE SPECIMENOrdering Facility: [facility] Address: [address], [place] [address] Performed By: #### U ACR, 2888-6 ####[facility] [id number] [place] [address] [place] Albumin/Creatinine (U) [Mass ratio] 483 mg/g High <30 [facility] Comment on above: Order Comment: Speci men Type: URINE SPECIMENOrdering Facility: [facility] Address: [address] [place] [address] Result Comment: Adul t Male and Female Nephrotic Criteria: <30 mg/g is considered normal to mildly increased 30-300 mg/g is considered moderately increased >300 mg/g is considered severely increased KDIGO. (2013). KDIGO 2012 Clinical Practice Guideline for the Evaluation and Management of Chronic Kidney Disease. Official Journal of the International Society of Nephrology, 3(1), 1-150. Performed By: #### U ACR, 2886 ####[facility] [id number] [place] [address] [place] Creatinine (U) [Mass/Vol] 80.2 mg/dL Normal 20.0-300.0 [facility] Comment on above: Order Comment: Speci men Type: URINE SPECIMENOrdering Facility: [facility] Address: [address] [place] [address] Performed By: #### U ACR, 28886 ####[facility] [id number] [place] [address] [place] Bacteria Ur Culton [...] technique or straight catheterization for???urine???collecti on. Normal [facility] Comment on above: Performed By: #### 6 30-4 ####[facility] [id number] [place] [address] [place] Basic metabolic 2000 panelon 08-14-2024 Anion gap [Moles/Vol] 13 mmol/L Normal 8-15 [facility] Comment on above: Order Comment: Speci men Type: BLOOD SPECIMEN [facility] Address: [address] [place] [address] Performed By: #### 1 3964-2 #### [facility] CLIA [id number] [address] [place] [address] [place] Calcium [Mass/Vol] 9.9 mg/dL Normal 8.5-10.2 [facility] Comment on above: Order Comment: Speci men Type: BLOOD SPECIMEN [facility] Address: [address] [place] [address] Performed By: #### 1 3964-2 #### [facility] CLIA [id number] [address] [place] [address] [place] Chloride [Moles/Vol] 96 mmol/L Low 98-107 [facility] Comment on above: Order Comment: Speci men Type: BLOOD SPECIMEN [facility] Address: [address] [place] [address] Performed By: #### 1 3964-2 #### [facility] CLIA [id number] [address] [place] [address] [place] CO2 [Moles/Vol] 24 mmol/L Normal 22-30 [facility] Comment on above: Order Comment: Speci men Type: BLOOD SPECIMEN [facility] Address: [address] [place] [address] Performed By: #### 1 3964-2 #### [facility] CLIA [id number] [address] [place], [place] [address] [place] Creatinine [Mass/Vol] 0.89 mg/dL Normal 0.58-0.96 [facility] Comment on above: Order Comment: Fan meade Type: BLOOD SPECIMEN [facility] Address: [address] [place] [address] Performed By: #### 1 3964-2 #### [facility] CLIA [id number] [address] [place] [address] [place] Creatinine and Glomerular filtration rate.predicted panel (S/P/Bld) 62 mL/min/1.73m??? Normal >=60 [facility] Comment on above: Order Comment: Fan meade Type: BLOOD SPECIMEN [facility] Address: [address] [place] [address] Result Comment: Hilda mated Glomerular Filtration Rate [...] GFR. Performed By: #### 1 3964-2 #### [facility] CLIA [id number] [address] [place] [address] [place] Glucose [Mass/Vol] 245 mg/dL High 74-99 [facility] Comment on above: Order Comment: Fan meade Type: BLOOD SPECIMEN [facility] Address: [address] [place] [address] Result Comment: The [place] Diabetes Association (ADA) provides guidance for cutoff [...] Standards of Medical Care in Diabetes 2016, [place] Diabetes Association. Diabetes Care. 2016.39(Suppl 1). Performed By: #### 1 3964-2 #### [facility] CLIA [id number] [address] [place] [address] [place] Potassium [Moles/Vol] 4.9 mmol/L Normal 3.7-5.1 [facility] Comment on above: Order Comment: Speci men Type: BLOOD SPECIMEN [facility] Address: [address] [place] [address] Performed By: #### 1 3964-2 #### [facility] CLIA [id number] [address] [place] [address] [place] Sodium [Moles/Vol] 133 mmol/L Low 136-144 [facility] Comment on above: Order Comment: Speci men Type: BLOOD SPECIMEN [facility] Address: [address] [place] [address] Performed By: #### 1 3964-2 #### [facility] CLIA [id number] [address] [place] [address] [place] Urea nitrogen [Mass/Vol] 29 mg/dL High 7-21 [facility] Comment on above: Order Comment: Speci men Type: BLOOD SPECIMEN [facility] Address: [address] [place] [address] Performed By: #### 1 3964-2 #### [facility] CLIA [id number] [address] [place] [address] [place] CBC W Ordered Manual Differe ntial panel (Bld)on 08-14-2024 Basophils (Bld) [#/Vol] 0.05 10*3/uL Normal <0.11 [facility] Comment on above: Order Comment: Speci men Type: BLOOD SPECIMENOrdering Facility: [facility] Address: [address] [place] [address] Performed By: #### 5 7782-5, 4537-7, STFREV ####[facility] [id number] [place] [address] [place] Basophils/100 WBC (Bld) 0.4 % Normal [facility] Comment on above: Order Comment: Speci men Type: BLOOD SPECIMENOrdering Facility: [facility] Address: [address] [place] [address] Performed By: #### 5 7782-5, 4537-7, STFREV ####[facility] [id number] [place] [address] [place] Differential cell count method Nom (Bld) Auto Normal [facility] Comment on above: Order Comment: Speci men Type: BLOOD SPECIMENOrdering Facility: [facility] Address: [address] [place] [address] Performed By: #### 5 7782-5, 4537-7, STFREV ####[facility] [id number] [place] [address] [place] Eosinophils (Bld) [#/Vol] 0.04 10*3/uL Normal <0.46 [facility] Comment on above: Order Comment: Speci men Type: BLOOD SPECIMENOrdering Facility: [facility] Address: [address] [place] [address] Performed By: #### 5 7782-5, 4537-7, STFREV ####[facility] [id number] [place] [address] [place] Eosinophils/100 WBC (Bld) 0.3 % Normal [facility] Comment on above: Order Comment: Speci men Type: BLOOD SPECIMENOrdering Facility: [facility] Address: [address] [place] [address] Performed By: #### 5 7782-5, 4537-7, STFREV ####[facility] [id number] [place] [address] [place] Erythrocyte distribution width (RBC) [Ratio] 14.9 % Normal 11.5-15.0 [facility] Comment on above: Order Comment: Speci men Type: BLOOD SPECIMENOrdering Facility: [facility] Address: [address] [place] [address] Performed By: #### 5 7782-5, 4537-7, STFREV ####[facility] [id number] [place] [address] [place] Hematocrit (Bld) [Volume fraction] 35.2 % Low 36.0-46.0 [facility] Comment on above: Order Comment: Speci men Type: BLOOD SPECIMENOrdering Facility: [facility] Address: [address] [place] [address] Performed By: #### 5 7782-5, 4537-7, STFREV ####[facility] [id number] [place] [address] [place] Hemoglobin (Bld) [Mass/Vol] 11.2 g/dL Low 11.5-15.5 [facility] Comment on above: Order Comment: Speci men Type: BLOOD SPECIMENOrdering Facility: [facility] Address: [address] [place] [address] Performed By: #### 5 7782-5, 4537-7, STFREV ####[facility] [id number] [place] [address] [place] Immature granulocytes (Bld) [#/Vol] 0.06 10*3/uL Normal <0.10 [facility] Comment on above: Order Comment: Speci men Type: BLOOD SPECIMENOrdering Facility: [facility] Address: [address] [place] [address] Performed By: #### 5 7782-5, 4537-7, STFREV ####[facility] [id number] [place] [address] [place] Immature granulocytes/100 WBC (Bld) 0.5 % Normal [facility] Comment on above: Order Comment: Speci men Type: BLOOD SPECIMENOrdering Facility: [facility] Address: [address] [place] [address] Performed By: #### 5 7782-5, 4537-7, STFREV ####[facility] [id number] [place] [address] [place] Lymphocytes (Bld) [#/Vol] 1.40 10*3/uL Normal 1.00-4.00 [facility] Comment on above: Order Comment: Speci men Type: BLOOD SPECIMENOrdering Facility: [facility] Address: [address] [place] [address] Performed By: #### 5 7782-5, 4537-7, STFREV ####[facility] [id number] [place] [address] [place] Lymphocytes/100 WBC (Bld) 11.3 % Normal [facility] Comment on above: Order Comment: Speci men Type: BLOOD SPECIMENOrdering Facility: [facility] Address: [address] [place] [address] Performed By: #### 5 7782-5, 4537-7, STFREV ####[facility] [id number] [place] [address] [place] MCH (RBC) [Entitic mass] 28.4 pg Normal 26.0-34.0 [facility] Comment on above: Order Comment: Speci men Type: BLOOD SPECIMENOrdering Facility: [facility] Address: [address] [place] [address] Performed By: #### 5 7782-5, 4537-7, STFREV ####[facility] [id number] [place] [address] [place] MCHC (RBC) [Mass/Vol] 31.8 g/dL Normal 30.5-36.0 [facility] Comment on above: Order Comment: Speci men Type: BLOOD SPECIMENOrdering Facility: [facility] Address: [address] [place] [address] Performed By: #### 5 7782-5, 4537-7, STFREV ####[facility] [id number] [place] [address] [place] MCV (RBC) [Entitic vol] 89.3 fL Normal 80.0-100.0 [facility] Comment on above: Order Comment: Speci men Type: BLOOD SPECIMENOrdering Facility: [facility] Address: [address] [place] [address] Performed By: #### 5 7782-5, 4537-7, STFRZAID ####[facility] [id number] [place] [address] [place] Monocytes (Bld) [#/Vol] 0.83 10*3/uL Normal <0.87 [facility] Comment on above: Order Comment: Speci men Type: BLOOD SPECIMENOrdering Facility: [facility] Address: [address] [place] [address] Performed By: #### 5 7782-5, 4537-7, STFREV ####[facility] [id number] [place] [address] [place] Monocytes/100 WBC (Bld) 6.7 % Normal [facility] Comment on above: Order Comment: Speci men Type: BLOOD SPECIMENOrdering Facility: [facility] Address: [address] [place] [address] Performed By: #### 5 7782-5, 4537-7, STFREV ####[facility] [id number] [place] [address] [place] Neutrophils (Bld) [#/Vol] 10.03 10*3/uL High 1.45-7.50 [facility] Comment on above: Order Comment: Speci men Type: BLOOD SPECIMENOrdering Facility: [facility] Address: [address] [place] [address] Performed By: #### 5 7782-5, 4537-7, STFREV ####[facility] [id number] [place] [address] [place] Neutrophils/100 WBC (Bld) 80.8 % Normal [facility] Comment on above: Order Comment: Speci men Type: BLOOD SPECIMENOrdering Facility: [facility] Address: [address] [place] [address] Performed By: #### 5 7782-5, 4537-7, STFREV ####[facility] [id number] [place] [address] [place] Nucleated RBC (Bld) [#/Vol] 10*3/uL Normal <0.01 [facility] Comment on above: Order Comment: Speci men Type: BLOOD SPECIMENOrdering Facility: [facility] Address: [address] [place] [address] Performed By: #### 5 7782-5, 4537-7, STFREV ####[facility] [id number] [place] [address] [place] Nucleated RBC/100 WBC (Bld) [Ratio] 0.0 /100 WBC Normal [facility] Comment on above: Order Comment: Speci men Type: BLOOD SPECIMENOrdering Facility: [facility] Address: [address] [place] [address] Performed By: #### 5 7782-5, 4537-7, STFREV ####[facility] [id number] [place] [address] [place] Platelet mean volume (Bld) [Entitic vol] 10.2 fL Normal 9.0-12.7 [facility] Comment on above: Order Comment: Speci men Type: BLOOD SPECIMENOrdering Facility: [facility] Address: [address] [place] [address] Performed By: #### 5 7782-5, 4537-7, STFREV ####[facility] [id number] [place] [id number] [place] Platelets (Bld) [#/Vol] 330 10*3/uL Normal 150-400 [facility] Comment on above: Order Comment: Speci men Type: BLOOD SPECIMENOrdering Facility: [facility] Address: [address] [place] [address] Performed By: #### 5 7782-5, 4537-7, STFREV ####[facility] [id number] [place] [address] [place] RBC (Bld) [#/Vol] 3.94 10*6/uL Normal 3.90-5.20 [facility] Comment on above: Order Comment: Speci men Type: BLOOD SPECIMENOrdering Facility: [facility] Address: [address] [place] [address] Performed By: #### 5 7782-5, 4537-7, STFREV ####[facility] [id number] [place] [address] [place] WBC (Bld) [#/Vol] 12.41 10*3/uL High 3.70-11.00 [facility] Comment on above: Order Comment: Speci men Type: BLOOD SPECIMENOrdering Facility: [facility] Address: [address] [place] [address] Performed By: #### 5 7782-5, 4537-7, STFREV ####[facility] [id number] [place] [id number] [place] CNOVon 08-14-2024 CNOV Office Visit ([facility] ) YUSUF MEDINA ([id number]) 1935 F [place] Date Time Provider Department 08/14/24 10:40 AM MIGDALIA CRAMER [facility] During your visit today, we recorded [...] no acute (more content not included)... Normal [facility] CRP SerPl-mCncon 08-14-2024 CRP [Mass/Vol] 7.8 mg/dL High <0.9 [facility] Comment on above: Order Comment: Speci men Type: BLOOD SPECIMEN [facility] Address: [address] [place] [address] Performed By: #### 1 3964-2 #### [facility] CLIA [id number] [address] [place] [address] [place] ESR Westergren method (Bld) [Velocity]on 08-14-2024 ESR (Bld) [Velocity] 40 mm/h [facility] 0-20 [facility] Comment on above: Order Comment: Speci men Type: BLOOD SPECIMENOrdering Facility: [facility] Address: [address] [place] [address] Performed By: #### 5 7782-5, 4537-7, STFREV ####[facility] [id number] [place] [address] [place] HbA1c (Bld)on 08-14-2024 Average glucose Estimated from glycated hemoglobin (Bld) [Mass/Vol] 197 mg/dL Normal [facility] Comment on above: Order Comment: Speci men Type: BLOOD SPECIMENOrdering Facility: [facility] Address: [address] [place] [address] Result Comment: eAG: (Estimated average glucose) is a calculated value from HgbA1c and is personal banking representative of the average blood glucose level in the last 2-3 month period. Performed By: #### 5 5454-3 ####[facility] [id number] [place] [address] [place] HbA1c (Bld) [Mass fraction] 8.5 % High 4.3-5.6 [facility] Comment on above: Order Comment: Fan meade Type: BLOOD SPECIMENOrdering Facility: [facility] Address: [address] [place] [address] Result Comment: [place] Diabetes Association guidelines indicate that patients with HgbA1c in the range 5.7-6.4% are at increased risk for development of diabetes, and intervention by lifestyle modification may be beneficial. HgbA1c greater or equal to 6.5% is considered diagnostic of diabetes. Performed By: #### 5 5454-3 ####[facility] [id number] [address] [place] PATHOLOGIST INTERPRETATION C BC/DIFFon 08-14-2024 [employer] review Mckay (Unsp spec) [Interp] No review performed. Normal [facility] Comment on above: Order Comment: Fan meade Type: BLOOD SPECIMENOrdering Facility: [facility] Address: [address] [place] [address] Performed By: #### 5 7782-5, 4537-7, STFREV ####[facility] [id number] [address] [place] STAFF REVIEW, CBCDIF Normal [facility] Comment on above: Order Comment: Fan meade Type: BLOOD SPECIMENOrdering Facility: [facility] Address: [address] [place] [address] Result Comment: The Pathologist Interpretation on this sample was cancelled because the hematology analyzer did not flag any parameters as requiring manual review. If there is a specific clinical concern for which you would like a pathologist to review the blood smear, please call Lab Client Services within 28 days. Performed By: #### 5 7782-5, 4537-7, STFREV ####[facility] [id number] [place] [address] [place] PROTEIN ELECTROPHORESIS SERU M (P)on 08-14-2024 Albumin [Mass/Vol] 3.80 g/dL Normal 3.43-5.41 [facility] Comment on above: Order Comment: Speci men Type: BLOOD SPECIMEN [facility] Address: [address] [place] [address] Performed By: #### 5 763-8 #### [facility] CLIA [id number] [address] [place] [address] [place] Alpha 1 globulin Elph [Mass/Vol] 0.46 g/dL High 0.18-0.43 [facility] Comment on above: Order Comment: Speci men Type: BLOOD SPECIMEN [facility] Address: [address] [place] [address] Performed By: #### 5 763-8 #### [facility] CLIA [id number] [address] [place] [address] [place] Alpha 2 globulin Elph [Mass/Vol] 1.03 g/dL High 0.42-0.98 [facility] Comment on above: Order Comment: Speci men Type: BLOOD SPECIMEN [facility] Address: [address] [place] [address] Performed By: #### 5 763-8 #### [facility] CLIA [id number] [address] [place] [address] [place] Beta globulin Elph [Mass/Vol] 0.84 g/dL Normal 0.61-1.17 [facility] Comment on above: Order Comment: Speci men Type: BLOOD SPECIMEN [facility] Address: [address] [place] [address] Performed By: #### 5 763-8 #### [facility] CLIA [id number] [address] [place] [address] [place] Gamma globulin Elph [Mass/Vol] 0.58 g/dL Normal 0.53-1.51 [facility] Comment on above: Order Comment: Fan meade Type: BLOOD SPECIMEN [facility] Address: [address] [place] [address] Performed By: #### 5 763-8 #### [facility] CLIA [id number] [place] [address] [place] INTERPRETATION COMMENT FOR PROTEIN ELECTROPHORESIS The atypical region is relatively poorly defined and may represent an unusual presentation of polyclonal immunoglobulins, but cannot rule out the presence of a low level M protein. If clinically indicated, monoclonal protein analysis and serum free light chain analysis are suggested to evaluate further for monoclonal gammopathy. Normal [facility] Comment on above: Order Comment: Fan meade Type: BLOOD SPECIMEN Ordering Facility: [facility] Address: [address] [place] [address] Performed By: #### 5 763-8 #### [facility] CLIA [id number] [address] [place] [address] [place] M-PROTEIN LOCATION Normal [facility] Comment on above: Order Comment: Fan meade Type: BLOOD SPECIMEN Ordering Facility: [facility] Address: [address] [place] [address] Result Comment: Not Applicable. Performed By: #### 5 763-8 #### [facility] CLIA [id number] [address] [place], [place] [address] [place] Protein Fractions [Interp] An atypical region of restricted mobility is identified on protein electrophoresis. Abnormal No definitive M protein is identified on protein electrophore sis. [facility] Comment on above: Order Comment: Fan meade Type: BLOOD SPECIMEN Ordering Facility: [facility] Address: [address] [place] [address] Performed By: #### 5 763-8 #### [facility] CLIA [id number] [address] [place] [address] [place] Protein.monoclonal Elph [Mass/Vol] 0.00 g/dL Normal <=0.00 [facility] Comment on above: Order Comment: Speci men Type: BLOOD SPECIMEN Ordering Facility: [facility] Address: [address] [place] [address] Performed By: #### 5 763-8 #### [facility] CLIA [id number] [address] [place] [address] [place] SPE STAFF REVIEW Reviewed by Tanisha Sanchez MD [facility] Comment on above: Order Comment: Speci men Type: BLOOD SPECIMEN Ordering Facility: [facility] Address: [address] [place] [address] Performed By: #### 5 763-8 #### [facility] CLIA [id number] [address] [place] [address] [place] Prot SerPl-mCncon 08-14-2024 Protein [Mass/Vol] 6.7 g/dL Normal 6.3-8.0 [facility] Comment on above: Order Comment: Speci men Type: BLOOD SPECIMEN Ordering Facility: [facility] Address: [address] [place] [address] Performed By: #### 1 3964-2 #### [facility] CLIA [id number] [address] [place] [address] [place] Prot Ur-mCncon 08-14-2024 Protein (U) [Mass/Vol] 78 mg/dL High 0-20 [facility] Comment on above: Order Comment: Speci men Type: URINE SPECIMENOrdering Facility: [facility] Address: [address] [place] [address] Performed By: #### U ACR, 2888-6 ####[facility] [id number] [place] [address] [place] TSH SerPl-aCncon 08-14-2024 TSH Qn 1.120 m[IU]/L Normal 0.270-4.200 [facility] Comment on above: Order Comment: Speci men Type: BLOOD SPECIMEN Ordering Facility: [facility] Address: [address] [place] [address] Performed By: #### 1 3964-2 #### [facility] CLIA [id number] [address] [place] [address] [place] URINALYSIS, DIPSTICK ONLYon 08-14-2024 Bilirubin Ql (U) Negative Normal Negative [facility] Comment on above: Order Comment: Speci men Type: BLOOD SPECIMEN Ordering Facility: [facility] Address: [address] [place] [address] Performed By: #### 2 132-9, 2283-8 #### [facility] CLIA [id number] [address] [place] [address] [place] Clarity (Unsp spec) Clear Normal Clear [facility] Comment on above: Order Comment: Speci men Type: BLOOD SPECIMEN Ordering Facility: [facility] Address: [address] [place] [address] Performed By: #### 2 132-9, 8 #### [facility] CLIA [id number] [address] [place] [address] [place] Color (U) Yellow Normal Yellow [facility] Comment on above: Order Comment: Speci men Type: BLOOD SPECIMEN Ordering Facility: [facility] Address: [address] [place] [address] Performed By: #### 2 132-9, 2283-8 #### [facility] CLIA [id number] [address] [place] [address] [place] Glucose Test strip (U) [Mass/Vol] 1+ Abnormal Negative [facility] Comment on above: Order Comment: Speci men Type: BLOOD SPECIMEN Ordering Facility: [facility] Address: [address] [place] [address] Performed By: #### 2 132-9, 8 #### [facility] CLIA [id number] [facility] [place] [id number] [place] Hemoglobin Ql (U) Negative Normal Negative [facility] Comment on above: Order Comment: Speci men Type: BLOOD SPECIMEN Ordering [facility]: [facility] Address: [address] [place] [address] Performed By: #### 2 132-9, 8 #### [facility] CLIA [id number] [address] [place] [address] [place] Ketones Ql (U) Negative Normal Negative [facility] Comment on above: Order Comment: Speci men Type: BLOOD SPECIMEN Ordering Facility: [facility] Address: [address] [place] [address] Performed By: #### 2 132-9, 8 #### [facility] CLIA [id number] [address] [place] [address] [place] Leukocyte esterase Test strip Ql (U) Negative Normal Negative [facility] Comment on above: Order Comment: Speci men Type: BLOOD SPECIMEN Ordering Facility: [facility] Address: [address] [place] [address] Performed By: #### 2 132-9, 8 #### [facility] CLIA [id number] [address] [place] [address] [place] Nitrite Ql (U) Negative Normal Negative [facility] Comment on above: Order Comment: Speci men Type: BLOOD SPECIMEN Ordering Facility: [facility] Address: [address] [place], [place] [id number] Performed By: #### 2 132-9, 8 #### [facility] CLIA [id number] [address] [place], [place] [address] [place] pH (U) 6.5 [pH] Normal <8.5 [facility] Comment on above: Order Comment: Speci men Type: BLOOD SPECIMEN Ordering Facility: [facility] Address: [address] [place] [address] Performed By: #### 2 132-9, 8 #### [facility] CLIA [id number] [address] [place] [address] [place] Protein (U) [Mass/Vol] 2+ Abnormal Negative [facility] Comment on above: Order Comment: Speci men Type: BLOOD SPECIMEN Ordering Facility: [facility] Address: [address] [place] [address] Performed By: #### 2 132-9, 8 #### [facility] CLIA [id number] [address] [place] [address] [place] Specific gravity (U) [Rel density] 1.020 Normal 1.005-1.030 [facility] Comment on above: Order Comment: Speci men Type: BLOOD SPECIMEN Ordering Facility: [facility] Address: [address] [place] [address] Performed By: #### 2 132-9, 8 #### [facility] CLIA [id number] [address] [place] [address] [place] Urobilinogen Ql (U) 1.0 EU/dL Normal 0.2-1.0 EU/dL [facility] Comment on above: Order Comment: Speci men Type: BLOOD SPECIMEN Ordering Facility: [facility] Address: [address] [place] [address] Performed By: #### 2 132-9, 8 #### [facility] CLIA [id number] [address] [place] [address] [place] URINE PROTEIN ELECTROPHORESI S RANDOM (P)on 08-14-2024 Albumin Elph (U) [Mass fraction] 69.11 % Normal [facility] Comment on above: Order Comment: Speci men Type: URINE SPECIMENOrdering Facility: [facility] Address: [address] [place] [address] Performed By: #### L [id number] ####[facility] [id number] [place] [address] [place] Alpha 1 globulin Elph (U) [Mass fraction] 7.87 % Normal [facility] Comment on above: Order Comment: Speci men Type: URINE SPECIMENOrdering Facility: [facility] Address: [address] [place] [address] Performed By: #### L [id number] ####[facility] [id number] [place] [address] [place] Alpha 2 globulin Elph (U) [Mass fraction] 6.40 % Normal [facility] Comment on above: Order Comment: Speci men Type: URINE SPECIMENOrdering Facility: [facility] Address: [address] [place] [address] Performed By: #### L [id number] ####[facility] [id number] [place] [address] [place] Beta globulin Elph (U) [Mass fraction] 11.20 % Normal [facility] Comment on above: Order Comment: Speci men Type: URINE SPECIMENOrdering Facility: [facility] Address: [address] [place] [address] Performed By: #### L [id number] ####[facility] [id number] [place] [address] [place] Gamma globulin Elph (U) [Mass fraction] 5.42 % Normal [facility] Comment on above: Order Comment: Speci men Type: URINE SPECIMENOrdering Facility: [facility] Address: [address] [place] [address] Performed By: #### L [id number] ####[facility] [id number] [place] [address] [place] Protein Fractions Elph Mckay (U) [Interp] No definitive M protein is identified on protein electrophoresis. Normal No definitive M protein is identified on protein electrophore sis. [facility] Comment on above: Order Comment: Speci men Type: URINE SPECIMENOrdering Facility: [facility] Address: [address] [place] [address] Performed By: #### L [id number] ####[facility] [id number] [address] STAFF REVIEW (URINE ELECTRO) Reviewed by Brianne Mosley M.D., Ph.D Normal [facility] Comment on above: Order Comment: Speci men Type: URINE SPECIMENOrdering Facility: [facility] Address: [address] [place] [address] Performed By: #### L [id number] ####[facility] [id number] [address] ALLIED HEALTHon 08-13-2024 ALLIED HEALTH HNO ID: [id number] Author: TYESHA CHENEY RT(Kenna) Service: Radiology Author [...] PATIENT PRESENTS WITH AN IMPLANTABLE OR ATTACHED KILN BURNER HELPER: No RADIOLOGY DEPARTMENT: General X-ray: Exam(s) Completed: Chest X-Ray PERIPHERAL IV DATA: Not applicable SIGNED BY: RT Carolina(Kenna) August 13, 2024 3:49 PM [facility] CBC W Auto Differential pane l (Bld)on 08-13-2024 Basophils (Bld) [#/Vol] 0.03 10*3/uL Normal <0.11 [facility] Comment on above: Order Comment: Speci men Type: BLOOD SPECIMEN Order[facility] Address: [address] [place] [address] Performed By: #### 5 7021-8 #### [facility] CLIA [id number] [address] [place] [address] [place] Basophils/100 WBC (Bld) 0.2 % Normal [facility] Comment on above: Order Comment: Speci men Type: BLOOD SPECIMEN Ordering Facility[facility] Address: [address] [place] [address] Performed By: #### 5 7021-8 #### [facility] CLIA [id number] [address] [place] [address] [place] Differential cell count method Nom (Bld) Auto Normal [facility] Comment on above: Order Comment: Speci men Type: BLOOD SPECIMEN Order[facility] Address: [address] [place] [address] Performed By: #### 5 7021-8 #### [facility] CLIA [id number] [address] [place] [address] [place] Eosinophils (Bld) [#/Vol] 10*3/uL Normal <0.46 [facility] Comment on above: Order Comment: Speci men Type: BLOOD SPECIMEN [facility] Address: [address] [place] [address] Performed By: #### 5 7021-8 #### [facility] CLIA [id number] [address] [place] [address] [place] Eosinophils/100 WBC (Bld) 0.1 % Normal [facility] Comment on above: Order Comment: Speci men Type: BLOOD SPECIMEN Order[facility] Address: [address] [place] [address] Performed By: #### 5 7021-8 #### [facility] CLIA [id number] [address] [place] [address] [place] Erythrocyte distribution width (RBC) [Ratio] 14.6 % Normal 11.5-15.0 [facility] Comment on above: Order Comment: Speci men Type: BLOOD SPECIMEN Ordering [facility] Address: [address] [place] [address] Performed By: #### 5 7021-8 #### [facility] CLIA [id number] [address] [place] [address] [place] Hematocrit (Bld) [Volume fraction] 33.5 % Low 36.0-46.0 [facility] Comment on above: Order Comment: Speci men Type: BLOOD SPECIMEN Order[facility] Address: [address] [place] [address] Performed By: #### 5 7021-8 #### [facility] CLIA [id number] [address] [place] [address] [place] Hemoglobin (Bld) [Mass/Vol] 10.9 g/dL Low 11.5-15.5 [facility] Comment on above: Order Comment: Speci men Type: BLOOD SPECIMEN [facility] Address: [address] [place] [address] Performed By: #### 5 7021-8 #### [facility] CLIA [id number] [address] [place] [address] [place] Immature granulocytes (Bld) [#/Vol] 0.09 10*3/uL Normal <0.10 [facility] Comment on above: Order Comment: Speci men Type: BLOOD SPECIMEN Order[facility] Address: [address] [place] [address] Performed By: #### 5 7021-8 #### [facility] CLIA [id number] [address] [place] [address] [place] Immature granulocytes/100 WBC (Bld) 0.5 % Normal [facility] Comment on above: Order Comment: Speci men Type: BLOOD SPECIMEN [facility] Facility[facility] Address: [address] [place] [address] Performed By: #### 5 7021-8 #### [facility] CLIA [id number] [address] [place] Lymphocytes (Bld) [#/Vol] 0.91 10*3/uL Low 1.00-4.00 [facility] Comment on above: Order Comment: Speci men Type: BLOOD SPECIMEN [facility] Address: [address] [place] [address] Performed By: #### 5 7021-8 #### [facility] CLIA [id number] [address] [place] [address] [place] Lymphocytes/100 WBC (Bld) 5.3 % Normal [facility] Comment on above: Order Comment: Speci men Type: BLOOD SPECIMEN [facility] Address: [address] [place] [address] Performed By: #### 5 7021-8 #### [facility] CLIA [id number] [address] [place] [address] [place] MCH (RBC) [Entitic mass] 28.6 pg Normal 26.0-34.0 [facility] Comment on above: Order Comment: Speci men Type: BLOOD SPECIMEN [facility] Address: [address] [place] [address] Performed By: #### 5 7021-8 #### [facility] CLIA [id number] [address] [place] MCHC (RBC) [Mass/Vol] 32.5 g/dL Normal 30.5-36.0 [facility] Comment on above: Order Comment: Speci men Type: BLOOD SPECIMEN [facility] Address: [address] [place] [address] Performed By: #### 5 7021-8 #### [facility] CLIA [id number] [address] [place] [address] [place] MCV (RBC) [Entitic vol] 87.9 fL Normal 80.0-100.0 [facility] Comment on above: Order Comment: Speci men Type: BLOOD SPECIMEN [facility] Address: [address] [place] [address] Performed By: #### 5 7021-8 #### [facility] CLIA [id number] [address] [place] [address] [place] Monocytes (Bld) [#/Vol] 0.91 10*3/uL High <0.87 [facility] Comment on above: Order Comment: Speci men Type: BLOOD SPECIMEN [facility] Address: [address] [place] [address] Performed By: #### 5 7021-8 #### [facility] CLIA [id number] [address] [place] [address] [place] Monocytes/100 WBC (Bld) 5.3 % Normal [facility] Comment on above: Order Comment: Speci men Type: BLOOD SPECIMEN [facility] Address: [address] [place] [address] Performed By: #### 5 7021-8 #### [facility] CLIA [id number] [address] [place] [address] [place] Neutrophils (Bld) [#/Vol] 15.20 10*3/uL High 1.45-7.50 [facility] Comment on above: Order Comment: Speci men Type: BLOOD SPECIMEN [facility] Address: [address] [place] [address] Performed By: #### 5 7021-8 #### [facility] CLIA [id number] [address] [place] [address] [place] Neutrophils/100 WBC (Bld) 88.6 % Normal [facility] Comment on above: Order Comment: Speci men Type: BLOOD SPECIMEN [facility] Address: [address] [place] [address] Performed By: #### 5 7021-8 #### [facility] CLIA [id number] [address] [place] [address] [place] Nucleated RBC (Bld) [#/Vol] 10*3/uL Normal <0.01 [facility] Comment on above: Order Comment: Speci men Type: BLOOD SPECIMEN [facility] Address: [address] [place] [address] Performed By: #### 5 7021-8 #### [facility] CLIA [id number] [address] [place] [address] [place] Nucleated RBC/100 WBC (Bld) [Ratio] 0.0 /100 WBC Normal [facility] Comment on above: Order Comment: Speci men Type: BLOOD SPECIMEN [facility] Address: [address] [place] [address] Performed By: #### 5 7021-8 #### [facility] CLIA [id number] [address] [place] [address] [place] Platelet mean volume (Bld) [Entitic vol] 9.0 fL Normal 9.0-12.7 [facility] Comment on above: Order Comment: Speci men Type: BLOOD SPECIMEN [facility] Address: [address] [place] [address] Performed By: #### 5 7021-8 #### [facility] CLIA [id number] [address] [place] [address] [place] Platelets (Bld) [#/Vol] 321 10*3/uL Normal 150-400 [facility] Comment on above: Order Comment: Speci men Type: BLOOD SPECIMEN [facility] Address: [address] [place] [address] Performed By: #### 5 7021-8 #### [facility] CLIA [id number] [address] [place] [address] [place] RBC (Bld) [#/Vol] 3.81 10*6/uL Low 3.90-5.20 [facility] Comment on above: Order Comment: Speci men Type: BLOOD SPECIMEN [facility] Address: [address] [place] [address] Performed By: #### 5 7021-8 #### [facility] CLIA [id number] [address] [place] [address] [place] WBC (Bld) [#/Vol] 17.15 10*3/uL High 3.70-11.00 [facility] Comment on above: Order Comment: Speci men Type: BLOOD SPECIMEN [facility] Address: [address] [place] [address] Performed By: #### 5 7021-8 #### [facility] CLIA [id number] [address] [place] [address] [place] CK SerPl-cCncon 08-13-2024 CK [Catalytic activity/Vol] 56 U/L Normal 42-196 [facility] Comment on above: Order Comment: Speci men Type: BLOOD SPECIMEN [facility] Address: [address] [place] [address] Performed By: #### 5 7021-8 #### [facility] CLIA [id number] [address] [place] [address] [place] Comprehensive metabolic 2000 panelon 08-13-2024 Albumin [Mass/Vol] 4.0 g/dL Normal 3.9-4.9 [facility] Comment on above: Order Comment: Speci men Type: BLOOD SPECIMEN [facility] Address: [address] [place] [address] Performed By: #### 5 763-8 #### [facility] CLIA [id number] [address] [place] [id number] [place] [address] [place] ALP [Catalytic activity/Vol] 99 U/L Normal 34-123 [facility] Comment on above: Order Comment: Speci men Type: BLOOD SPECIMEN [facility] Address: [address] [place] [address] Performed By: #### 5 763-8 #### [facility] CLIA [id number] [address] [place] [address] [place] ALT [Catalytic activity/Vol] 15 U/L Normal 7-38 [facility] Comment on above: Order Comment: Speci men Type: BLOOD SPECIMEN [facility] Address: [address] [place] [address] Performed By: #### 5 763-8 #### [facility] CLIA [id number] [address] [place] [address] [place] Anion gap [Moles/Vol] 14 mmol/L Normal 8-15 [facility] Comment on above: Order Comment: Speci men Type: BLOOD SPECIMEN [facility] Address: [address] [place] [address] Performed By: #### 5 763-8 #### [facility] CLIA [id number] [address] [place] [address] [place] AST [Catalytic activity/Vol] 18 U/L Normal 13-35 [facility] Comment on above: Order Comment: Speci men Type: BLOOD SPECIMEN [facility] Address: [address] [place] [address] Performed By: #### 5 763-8 #### [facility] CLIA [id number] [address] [place] [address] [place] Bilirubin [Mass/Vol] 0.2 mg/dL Normal 0.2-1.3 [facility] Comment on above: Order Comment: Speci men Type: BLOOD SPECIMEN [facility] Address: [address] [place] [address] Performed By: #### 5 763-8 #### [facility] CLIA [id number] [address] [place] [address] [place] Calcium [Mass/Vol] 9.2 mg/dL Normal 8.5-10.2 [facility] Comment on above: Order Comment: Speci men Type: BLOOD SPECIMEN Ordering Facility: [facility] Address: [address] [place] [address] Performed By: #### 5 763-8 #### [facility] CLIA [id number] [address] [place] [address] [place] Chloride [Moles/Vol] 96 mmol/L Low 98-107 [facility] Comment on above: Order Comment: Speci men Type: BLOOD SPECIMEN Ordering Facility: [facility] Address: [address] [place] [address] Performed By: #### 5 763-8 #### [facility] CLIA [id number] [address] [place] [address] [place] CO2 [Moles/Vol] 24 mmol/L Normal 22-30 [facility] Comment on above: Order Comment: Speci men Type: BLOOD SPECIMEN Ordering Facility: [facility] Address: [address] [place] [address] Performed By: #### 5 763-8 #### [facility] CLIA [id number] [address] [place] [address] [place] Creatinine [Mass/Vol] 0.87 mg/dL Normal 0.58-0.96 [facility] Comment on above: Order Comment: Speci men Type: BLOOD SPECIMEN Ordering Facility: [facility] Address: [address] [place] [address] Performed By: #### 5 763-8 #### [facility] CLIA [id number] [address] [place] [address] [place] Creatinine and Glomerular filtration rate.predicted panel (S/P/Bld) 64 mL/min/1.73m??? Normal >=60 [facility] Comment on above: Order Comment: Speci men Type: BLOOD SPECIMEN Ordering Facility: [facility] Address: [address] [place] [address] Result Comment: Hilda mated Glomerular Filtration Rate [...] GFR. Performed By: #### 5 763-8 #### [facility] CLIA [id number] [address] [place] [address] [place] Glucose [Mass/Vol] 212 mg/dL High 74-99 [facility] Comment on above: Order Comment: Specleroy meade Type: BLOOD SPECIMEN Ordering Facility: [facility] Address: [address] [place] [address] Result Comment: The [place] Diabetes Association (ADA) provides guidance for cutoff [...] Standards of Medical Care in Diabetes 2016, [place] [employer]. Diabetes Care. 2016.39(Suppl 1). Performed By: #### 5 763-8 #### [facility] CLIA [id number] [address] [place] [address] [place] Potassium [Moles/Vol] 4.6 mmol/L Normal 3.7-5.1 [facility] Comment on above: Order Comment: Fan meade Type: BLOOD SPECIMEN Ordering Facility: [facility] Address: [address] [place] [address] Performed By: #### 5 763-8 #### [facility] CLIA [id number] [address] [place] [address] [place] Protein [Mass/Vol] 6.5 g/dL Normal 6.3-8.0 [facility] Comment on above: Order Comment: Speci men Type: BLOOD SPECIMEN Ordering Facility: [facility] Address: [address] [place] [address] Performed By: #### 5 763-8 #### [facility] CLIA [id number] [address] [place] [address] [place] Sodium [Moles/Vol] 134 mmol/L Low 136-144 [facility] Comment on above: Order Comment: Speci men Type: BLOOD SPECIMEN [facility]ing [facility] Address: [address] [place] [address] Performed By: #### 5 763-8 #### [facility] CLIA [id number] [address] [place] [address] [place] Urea nitrogen [Mass/Vol] 29 mg/dL High 7-21 [facility] Comment on above: Order Comment: Speci men Type: BLOOD SPECIMEN Ordering Facility[facility] Address: [address] [place] [address] Performed By: #### 5 763-8 #### [facility] CLIA [id number] [address] [place] [address] [place] ECG COMPLETEon 08-13-2024 ECG COMPLETE Ventricular Rate : 9 7 BPM Atrial Rate : 97 BPM P-R Interval : 174 ms QRS Duration : 78 ms Q-T Interval : 328 ms QTC Calculation(Bazett) : 416 ms Calculated P Mission : 64 degrees Calculated R Mission : 29 degrees Calculated T Mission : 68 degrees SINUS RHYTHM WITH PREMATURE ATRIAL COMPLEXES CANNOT EXCLUDE ANTERIOR MYOCARDIAL INFARCTION , AGE UNDETERMINED ABNORMAL ECG 1402 08/13/2024 Confirmed by DO ROMO ALAN ([id number]), metropolitan editor CAROLINA MERRITT ([id number]) on 08/14/2024 8:29:13 AM NAME : YUSUF MEDINA PID : [id number] : 1935 Gender : Female Race : ORD : [id number] Procedure Date : Aug 13 2024 14:04:37 Edit Date : Aug 14 2024 08:29:17 Diagnosis: SINUS RHYTHM WITH PREMATURE ATRIAL COMPLEXES CANNOT EXCLUDE ANTERIOR MYOCARDIAL INFARCTION , AGE UNDETERMINED ABNORMAL ECG 1402 08/13/2024 Confirmed by DO ROMO ALAN ([id number]), metropolitan editor CAROLINA MERRITT ([id number]) on 08/14/2024 8:29:13 AM Test Reason : Chest Pain Location : 215 : [id number] Overread By : DO ROMO ALAN Edited By : CAROLINA MERRITT Referred By : , Acquired by : Ally MURGUIA [facility] ED NOTEon 08-13-2024 ED NOTE HNO ID: [id number] Author: ELIF SAM RN Service: Nursing Author Type: Registered Nurse Type: ED Notes Filed: 08/13/2024 17:42 Note Text: Pt given discharge instructions. Verbalized understanding. Pt taken to daughters car by wheelchair. Normal [facility] ED NOTE HNO ID: [id number] Author: KONSTANTIN FLORES RN Service: Nursing Author [...] staff of any changes in condition. Normal [facility] ED PROV NOTEon 08-13-2024 ED PROV NOTE HNO ID: [id number] Author: MARIUSZ ROMO DO Service: Emergency Medicine [...] better. Her daughter is translating. They speak Barbadian. She does not want me to call an additional working supervisor. Patient does not have headache. No posterior head or neck pain. No chest pain. No thoracic lumbar back pain. No abdominal pain. No dysuria. No urinary frequency. No diarrhea. No constipation. She really is without complaints. She believes she has been eating fine. Her daughter adds that sometimes when they put her pill marketing planner medications together she takes both a.m. [...] - REMV CATARACT EXTRACAP,INSERT LENS Bilateral [address] [facility] FAMILY HISTORY Problem Relation Age of [...] / D (more content not included)... Normal [facility] HIGH SENSITIVITY TROPONIN T (INITIAL)on 08-13-2024 Troponin T.cardiac High sensitivity method [Mass/Vol] 30 ng/L High <12 [facility] Comment on above: Order Comment: Speci men Type: BLOOD SPECIMEN Ordering Facility: [facility] Address: [address] [place] [address] Performed By: #### 5 763-8 #### [facility] CLIA [id number] [address] [place] [address] [place] HIGH SENSITIVITY TROPONIN T (SECOND)on 08-13-2024 Troponin T.cardiac High sensitivity method [Mass/Vol] 29 ng/L High <12 [facility] Comment on above: Order Comment: Fan meade Type: BLOOD SPECIMENOrdering Facility: [facility] Address: [address] [place] [address] Performed By: #### L [id number] ###[facility]IA [id number] [place] [address] [place] PT panel Coag (PPP)on 2023 INR Coag (PPP) [Relative time] 1.0 {INR} Normal 0.9-1.3 [facility] Comment on above: Order Comment: Fan meade Type: BLOOD SPECIMENOrdering Facility: [facility] Address: [address] [place] [address] Result Comment: Kendra min K Antagonist (VKA) Therapeutic Range: INR 2 to 3 (Target INR of 2.5) Note: For patients treated with VKA drugs, such as warfarin, the [place] [employer] 2012 Guideline recommends [...] 3 4528-0 ###[facility]ORYCLIA [id number] [place] [address] [place] PT Coag (PPP) [Time] 10.6 s Normal 9.7-13.0 [facility] Comment on above: Order Comment: Speci men Type: BLOOD SPECIMENOrdering Facility: [facility] Address: [address] [place] [address] Performed By: #### 3 4528-0 ####[facility]IA [id number] [place] [address] [place] Urinalysis complete panel (U )on 08-13-2024 Bilirubin Ql (U) Negative Normal Negative [facility] Comment on above: Order Comment: Speci men Type: BLOOD SPECIMEN Ordering [facility] Address: [address] [place] [address] Performed By: #### 2 132-9, 2283-8 #### [facility] CLIA [id number] [address] [place] [address] [place] Clarity (Unsp spec) Clear Normal Clear [facility] Comment on above: Order Comment: Speci men Type: BLOOD SPECIMEN [facility] Address: [address] [place] [address] Performed By: #### 2 132-9, 2283-8 #### [facility] CLIA [id number] [address] [place] [address] [place] Color (U) Yellow Normal yellow [facility] Comment on above: Order Comment: Speci men Type: BLOOD SPECIMEN [facility] Address: [address] [place] [address] Performed By: #### 2 132-9, 2283-8 #### [facility] CLIA [id number] [address] [place] [address] [place] Epithelial cells LM.HPF (Urine sed) [#/Area] Few Normal [facility] Comment on above: Order Comment: Speci men Type: BLOOD SPECIMEN Ordering Facility[facility] Address: [address] [place] [address] Result Comment: Few Performed By: #### 2 132-9, 8 #### [facility] CLIA [id number] [address] [place] [address] [place] Glucose Test strip (U) [Mass/Vol] Negative Normal Trace, Negative [facility] Comment on above: Order Comment: Speci men Type: BLOOD SPECIMEN Ordering Facility[facility] Address: [address] [place] [address] Performed By: #### 2 132-9, 8 #### [facility] CLIA [id number] [address] [place] [address] [place] Hemoglobin Ql (U) Trace Normal Negative, Trace [facility] Comment on above: Order Comment: Speci men Type: BLOOD SPECIMEN [facility] Address: [address] [place] [address] Performed By: #### 2 132-9, 8 #### [facility] CLIA [id number] [address] [place] [address] [place] Ketones Ql (U) Negative Normal Negative, Trace [facility] Comment on above: Order Comment: Speci men Type: BLOOD SPECIMEN Order[facility] Address: [address] [place] [address] Performed By: #### 2 132-9, 8 #### [facility] CLIA [id number] [address] [place], [place] [address] [place] Leukocyte esterase Test strip Ql (U) Negative Normal Negative, 25 Vani/uL [facility] Comment on above: Order Comment: Speci men Type: BLOOD SPECIMEN [facility] Facility[facility] Address: [address] [place], [place] [address] Performed By: #### 2 132-9, 2283-8 #### [facility] CLIA [id number] [address] [place] [address] [place] Nitrite Ql (U) Negative Normal Negative [facility] Comment on above: Order Comment: Speci men Type: BLOOD SPECIMEN [facility] Address: [address] [place] [address] Performed By: #### 2 132-9, 2283-8 #### [facility] CLIA [id number] [address] [place] [address] [place] pH (U) 6.0 [pH] Normal 5.0-8.0 [facility] Comment on above: Order Comment: Speci men Type: BLOOD SPECIMEN [facility] Address: [address] [place] [address] Performed By: #### 2 132-9, 8 #### [facility] CLIA [id number] [address] [place] [address] [place] Protein (U) [Mass/Vol] 1+ Abnormal Trace , Negative [facility] Comment on above: Order Comment: Speci men Type: BLOOD SPECIMEN [facility] Address: [address] [place] [address] Performed By: #### 2 132-9, 8 #### [facility] CLIA [id number] [address] [place] [address] [place] RBC LM.HPF (Urine sed) [#/Area] 3-5 /HPF Abnormal 0-3 /HPF [facility] Comment on above: Order Comment: Speci men Type: BLOOD SPECIMEN [facility] Address: [address] [place] [address] Performed By: #### 2 132-9, 8 #### [facility] CLIA [id number] [address] [place] [address] [place] Specific gravity (U) [Rel density] 1.021 Normal 1.005-1.030 [facility] Comment on above: Order Comment: Speci men Type: BLOOD SPECIMEN [facility] Address: [address] [place] [address] Performed By: #### 2 132-9, 2284-8 #### [facility] CLIA [id number] [address] [place] [address] [place] Urobilinogen Ql (U) Normal Normal Normal [facility] Comment on above: Order Comment: Speci men Type: BLOOD SPECIMEN [facility] Address: [address] [place] [address] Performed By: #### 2 132-9, 2284-8 #### [facility] CLIA [id number] [address] [place] [address] [place] WBC LM.HPF (Urine sed) [#/Area] 0-5 /HPF Normal 0-5 /HPF [facility] Comment on above: Order Comment: Speci men Type: BLOOD SPECIMEN [facility] Address: [address] [place] [address] Performed By: #### 2 132-9, 2284-8 #### [facility] CLIA [id number] [address] [place] [address] [place] XR CHEST 1V [...] of bilateral shoulders IMPRESSION: Bilateral basilar atelectasis Medical Technologist Chief: PHU Transcribe Date/Time: Aug 13 2024 4:03P Dictated by : GILLIAN ELLIOTT MD This examination was interpreted and the report reviewed and electronically signed by: GILLIAN ELLIOTT MD on Aug 13 2024 4:04PM EST [id number] Normal [facility] CNOVon 07-12-2024 CNOV Office Visit ([facility] ) YUSUF MEDINA ([id number]) 1935 F ALBERTO Date Time Provider Department 07/12/24 9:40 AM MIGDALIA CRAMER [facility] During your visit today, we recorded [...] [D50.9] Order(s):BASIC METABOLIC PANEL [SQBMP] Order #: [id number] FUTURE HEMOGLOBIN A1C [YPAWU5S] Order #: [id number] FUTURE ALBUMIN/CREATININE RATIO, URINE [SQUACR] Order #: [id number] FUTURE COMPLETE BLOOD COUNT [SQCBC] Order #: [id number] FUTURE THYROID STIMULATING HORMONE [SQTSH] Order #: [id number] FUTURE Prescriptions as of 07/12/2024 - pioglitazone [...] diclofenac (VOLTARE (more content not included)... Normal [facility] Basic metabolic 2000 panelon 07-11-2024 Anion gap [Moles/Vol] 14 mmol/L Normal 8-15 [facility] Comment on above: Order Comment: Speci men Type: BLOOD SPECIMENOrdering Facility: [facility] Address: [address] [place] [address] [place] [id number] Performed By: #### 2 4321-2 ####[facility] LAB[facility]IA [id number] [place] [address] [place] Calcium [Mass/Vol] 9.9 mg/dL Normal 8.5-10.2 [facility] Comment on above: Order Comment: Speci men Type: BLOOD SPECIMENOrdering Facility: [facility] Address: [address] [place] [address] Performed By: #### 2 4321-2 ####[facility] LAB[facility]IA [id number] [place] [address] [place] Chloride [Moles/Vol] 101 mmol/L Normal 98-107 [facility] Comment on above: Order Comment: Speci men Type: BLOOD SPECIMENOrdering Facility: [facility] Address: [address] [place] [address] Performed By: #### 2 4321-2 ####[facility] LABCLIA [id number] [place] [address] [place] CO2 [Moles/Vol] 20 mmol/L Low 22-30 [facility] Comment on above: Order Comment: Speci men Type: BLOOD SPECIMENOrdering Facility: [facility] Address: [address] [place] [address] Performed By: #### 2 4321-2 ####[facility] LAB[facility]IA [id number] [place] [address] [place] Creatinine [Mass/Vol] 0.93 mg/dL Normal 0.58-0.96 [facility] Comment on above: Order Comment: Speci men Type: BLOOD SPECIMENOrdering Facility: [facility] Address: [address] [place] [address] Performed By: #### 2 4321-2 ####[facility] LABCLIA [id number] [address] [place] Creatinine and Glomerular filtration rate.predicted panel (S/P/Bld) 59 mL/min/1.73m??? Low >=60 [facility] Comment on above: Order Comment: Fan meade Type: BLOOD SPECIMENOrdering Facility: [facility] Address: [address] [place] [address] Result Comment: Hilda mated Glomerular Filtration Rate [...] 2 4321-2 ####[facility] LAB[facility]IA [id number] [place] [address] [place] Glucose [Mass/Vol] 244 mg/dL High 74-99 [facility] Comment on above: Order Comment: Fan meade Type: BLOOD SPECIMENOrdering Facility: [facility] Address: [address] [place] [address] Result Comment: The [place] Diabetes Association (ADA) provides guidance for cutoff [...] Standards of Medical Care in Diabetes 2016, [place] [employer]. Diabetes Care. 2016.39(Suppl 1). Performed By: #### 2 4321-2 ####[facility] LAB[facility]IA [id number] [place] [address] [place] Potassium [Moles/Vol] 5.2 mmol/L High 3.7-5.1 [facility] Comment on above: Order Comment: Fan meade Type: BLOOD SPECIMENOrdering Facility: [facility] Address: [address] [place] [address] Performed By: #### 2 4321-2 ####[facility] LAB[facility]IA [id number] [place] [address] [place] Sodium [Moles/Vol] 135 mmol/L Low 136-144 [facility] Comment on above: Order Comment: Speci men Type: BLOOD SPECIMENOrdering Facility: [facility] Address: [address] [place] [address] Performed By: #### 2 4321-2 ####[facility] LABCLIA [id number] [place] [address] [place] Urea nitrogen [Mass/Vol] 30 mg/dL High 7-21 [facility] Comment on above: Order Comment: Speci men Type: BLOOD SPECIMENOrdering Facility: [facility] Address: [address] [place] [address] Performed By: #### 2 4321-2 ####[facility] LABCLIA [id number] [place] [address] [place] HbA1c (Bld)on 07-11-2024 Average glucose Estimated from glycated hemoglobin (Bld) [Mass/Vol] 189 mg/dL Normal [facility] Comment on above: Order Comment: Speci men Type: BLOOD SPECIMENOrdering Facility: [facility] Address: [address] [place] [address] Result Comment: eAG: (Estimated average glucose) is a calculated value from HgbA1c and is personal banking representative of the average blood glucose level in the last 2-3 month period. Performed By: #### 5 5454-3 ####[facility] [id number] [facility] [id number] [place] HbA1c (Bld) [Mass fraction] 8.2 % High 4.3-5.6 [facility] Comment on above: Order Comment: Speci men Type: BLOOD SPECIMENOrdering Facility: [facility] Address: [address] [place] [address] Result Comment: Amer [place] Diabetes Association guidelines indicate that patients with HgbA1c in the range 5.7-6.4% are at increased risk for development of diabetes, and intervention by lifestyle modification may be beneficial. HgbA1c greater or equal to 6.5% is considered diagnostic of diabetes. Performed By: #### 5 5454-3 ####[facility] LAB[facility]IA [id number] [address] [place] LIPID PANEL, NONFASTINGon Cholesterol [Mass/Vol] 151 mg/dL Normal <200 [facility] Comment on above: Order Comment: Speci men Type: BLOOD SPECIMEN [facility] Address: [address] [place] [address] Result Comment: <200 mg/dL, Desirable 200-239 mg/dL, Borderline high >239 mg/dL, High Performed By: #### 1 3964-2 #### [facility] CLIA [id number] [address] [place] [address] [place] HDL CHOLESTEROL, NF 59 mg/dL Normal >39 [facility] Comment on above: Order Comment: Fan meade Type: BLOOD SPECIMEN [facility] Address: [address] [place] [address] Result Comment: 40-5 9 mg/dL, Acceptable >59 mg/dL, High: Negative risk factor for coronary heart disease <40 mg/dL, Low: Positive risk factor for coronary heart disease Performed By: #### 1 3964-2 #### [facility] CLIA [id number] [address] [place] [address] [place] LDL CHOLESTEROL, NF 71 mg/dL Normal <100 [facility] Comment on above: Order Comment: [facility] Type: BLOOD SPECIMEN [facility] Address: [address] [place] [address] Result Comment: <100 mg/dL, Optimal 100-129 mg/dL, Near optimal/above optimal 130-159 mg/dL, Borderline high 160-189 mg/dL, High >189 mg/dL, Very high Secondary prevention optimal LDL Cholesterol levels are recommended to be < 70 mg/dL Performed By: #### 1 3964-2 #### [facility] CLIA [id number] [address] [place] [address] [place] LDL/HDL RATIO, NF 1.20 mg/dL Normal <2.54 [facility] Comment on above: Order Comment: Fan meade Type: BLOOD SPECIMEN [facility] Address: [address] [place] [address] Result Comment: Refe rence: 1. National Cholesterol Education Program ATP III Guideline At-A-Glance Quick Desk Reference: National Heart, Lung, and Blood [place]. National Institutes of Health. 2001: NIH Publication No. 01-3305. 2. An International Atherosclerosis Society position paper: global recommendations for the management of dyslipidemia: executive summary, Atherosclerosis. 2014: 232(2):410-413. Performed By: #### 1 3964-2 #### [facility] CLIA [id number] [address] [place] [address] [place] NON HDL CHOL, NF 92 mg/dL Normal <130 [facility] Comment on above: Order Comment: Fan meade Type: BLOOD SPECIMEN [facility] Address: [address] [place] [address] Result Comment: <130 mg/dL, Optimal 130-159 mg/dL, Near optimal/above optimal 160-189 mg/dL, Borderline high 190-219 mg/dL, High >219 mg/dL, Very high Secondary prevention optimal non HDL Cholesterol levels are recommended to be <100 mg/dL Performed By: #### 1 3964-2 #### [facility] CLIA [id number] [address] [place] [address] [place] T CHOL/HDL RATIO NF 2.56 mg/dL Normal <5.10 [facility] Comment on above: Order Comment: Fan men Type: BLOOD SPECIMEN [facility] Address: [address] [place] [address] Performed By: #### 1 3964-2 #### [facility] CLIA [id number] [address] [place] [address] [place] TRIGLYCERIDES, NF 107 mg/dL Normal <150 [facility] Comment on above: Order Comment: Specleroy meade Type: BLOOD SPECIMEN [facility] Address: [address] [place] [address] Result Comment: <150 mg/dL, Normal 150-199 mg/dL, Borderline high 200-499 mg/dL, High >499 mg/dL, Very high Performed By: #### 1 3964-2 #### [facility] CLIA [id number] [address] [place] [address] [place] VLDL CHOLESTEROL, NF 21 mg/dL Normal <30 [facility] Comment on above: Order Comment: Fan meade Type: BLOOD SPECIMEN Ordering Facility: [facility] Address: [address] [place] [address] Performed By: #### 1 3964-2 #### [facility] CLIA [id number] [address] [place] [address] [place] Home Health Progress Noteon 12-09-2021 Home Health Progress Note Follow up call placed to patient regarding HHC. Spoke with Yusuf regarding services. Patient states no services needed and hung up on caller. Will cancel referral to [facility]. Normal [facility] BASICMETAon 12-07-2021 GFR AA 45 Normal [facility] Comment on above: Result Comment: Afri can Turkmen GFR Calc Medical judgement is necessary to [...] for drug dosing. Performed By: #### C D:[id number], 5776470, 358640, 478042, 795964, 624215 #### [facility] [address] [place] [address] Automatic Pattern Edger: Robert Ybarra MD Glomerular Filtration Rate 37 mL/min/1.73m? Normal [facility] Comment on above: Result Comment: [...] for drug dosing. Performed By: #### C D:[id number], 7814429, 568713, 821813, 505285, 217983 #### [facility] [address] [place] [address]69 Automatic Pattern Edger: Robert Ybarra MD Osmolality [Osmolality] 287 mosm/kg Normal 275-295 [facility] Comment on above: Performed By: #### C D:[id number], 8804252, 750597, 285343, 612035, 327073 #### [facility] [address] [place] [address] 81447 Automatic Pattern Edger: Robert Ybarra MD Urea nitrogen/Creatinine [Mass ratio] 19.1 mg/mg Normal [facility] Comment on above: Performed By: #### C D:[id number], 1124508, 145074, 310188, 062868, 799905 #### [facility] [address] [place] [address] 28436 Automatic Pattern Edger: Robert Ybarra MD Calcium [Mass/Vol] 9.7 mg/dL Normal 8.5-10.5 [facility] Comment on above: Performed By: #### C D:[id number], 3699017, 143266, 334864, 573612, 183512 #### [facility] [address] [place] [address] 73540 Automatic Pattern Edger: Robert Ybarra MD Chloride [Moles/Vol] 107 mmol/L Normal 100-109 [facility] Comment on above: Performed By: #### C D:[id number], 3270049, 096644, 546124, 106143, 325665 #### [facility] [address] [place] [address] Automatic Pattern Edger: Robert Ybarra MD CO2 [Moles/Vol] 25.9 mmol/L Normal 21.0-32.0 [facility] Comment on above: Performed By: #### C D:[id number], 6995808, 230037, 175007, 983928, 356011 #### [facility] [address] [place] [address] 29349 Automatic Pattern Edger: Robert Ybarra MD Creatinine [Mass/Vol] 1.4 mg/dL High 0.6-1.0 [facility] Comment on above: Performed By: #### C D:[id number], 7778260, 294140, 005896, 019552, 602131 #### [facility] [address] [place] [address] 796[address] Automatic Pattern Edger: Robert Ybarra MD Glucose [Mass/Vol] 177 mg/dL High 72-100 [facility] Comment on above: Result Comment: Shireen puncture should occur prior to sulfasalazine administration due to the potential for falsely depressed results. Venipuncture should occur prior to sulfapyridine administration due to the potential falsely elevated results. Baseline assay values before administration of sulfasalazine and sulfapyridine therapy would not be affected. Performed By: #### C D:[id number], 2255364, 754330, 121360, 896521, 614943 #### [facility] [address] [place] [address] 80262 Automatic Pattern Edger: Robert Ybarra MD Potassium [Moles/Vol] 4.7 mmol/L Normal 3.5-5.1 [facility] Comment on above: Performed By: #### C D:[id number], 0667394, 783336, 245800, 079857, 887464 #### [facility] [address] [place] [address] Automatic Pattern Edger: Robert Ybarra MD Sodium [Moles/Vol] 139 mmol/L Normal 135-145 [facility] Comment on above: Performed By: #### C D:[id number], 3588532, 513510, 646382, 466268, 480317 #### [facility] [address] [place] [address] Automatic Pattern Edger: Robert Ybarra MD Urea nitrogen [Mass/Vol] 26 mg/dL High 10-20 [facility] Comment on above: Performed By: #### C D:[id number], 6760797, 663977, 867888, 156414, 754323 #### [facility] [address] [place] [address] [id number] Automatic Pattern Edger: Robert Ybarra MD CPKon 12-07-2021 CPK 1185 unit/L Critically abnormal 26-192 [facility] Comment on above: Result Comment: Crit ical Result(s) called at: 13:24:37 on 12/07/2021 by: MIRNA rechecked, RBR to: Dr. Beckford Performed By: #### C D:[id number], 9692071, 928249, 537360, 832903, 918754 #### [facility] [address] [place], [place] 932[address] Automatic Pattern Edger: Robert Ybarra MD Utilization Review Noteon Utilization Review Note Inpatient recomm ended. Inpatient ordered. Patient with #1 acute hypothermia. YUSUF MEDINA 12/03/21 [id number] CCE 200 INPT UPDATED CERNER TO [facility] MEDICARE Verified admit thru the portal [id number] PATIENT ALREADY DISCHARGED AT THE TIME OF THIS REVIEW. Faxed Normal [facility] Discharge Educationon 2021 Discharge Education Patient Education Material Normal [facility] Inpatient Patient Summaryon 12-05-2021 Inpatient Patient Summary [facility] Discharge Instructions [address] [place] [address] \.br\(Patient Copy)\.br\ \.br\ \.br\Name: YUSUF MEDINA : 1935 \.br\Diagnosis: Abrasion of right elbow; Benign essential hypertension; Chronic kidney disease (CKD), stage III (moderate); Contusion of right thigh; Diabetes mellitus type II, controlled; acute Hypothermia \.br\ \.br\Allergies: No Known Allergies\.br\ \.br\Registration Date: 12/03/21\.br\\.br\\.br \ \.br\ Current Date Time: 12/05/2021 07:42:18 \.br\ \.br\Address: [address] [place] [address] \.br\ \.br\ \.br\Primary Care Provider: \.br\Name: RADHA CRAMER\.br\ \.br\ \.br\Thank you for choosing [facility] for your care. You are very important to us. Our goal is to demonstrate our high quality medical care and provide you with a very good patient experience.\.br\ You may receive a survey about our service. Please take the time to complete the survey and return it so we can continue to enhance our service.\.br\ Thank you again for allowing [facility] to care for your medical needs. [...] in more information on smoking cessation, contact [facility]?s Tobacco Cessation [facility] [phone]\.br\ \.br\ DIET Eat a variety of nutritious [...] Connection / Physician Referral and Health Information [phone].\.br\[facility] [place] [id number]-[id number] ( )\.br\S easons of a Woman?s Life [phone] \.br\ \.br\ Call immediately if you or [...] discomfort: M (more content not included)... Normal [facility] AUTO DIFFon 12-04-2021 Baso Count 0.05 x1000 Normal 0.00-0.20 [facility] Comment on above: Performed By: #### 1 , 105504, 777744, 5758947 ####[facility] [address] [place] [address] Medical Director: Robert Ybarra MD Basos % 0.5 % Normal [facility] Comment on above: Performed By: #### 1 , 003040, 206567, 7455057 ####[facility] [address] [place] [address] Medical Director: Robert Ybarra MD Eos Count 0.01 x1000 Normal 0.00-0.50 [facility] Comment on above: Performed By: #### 1 , 975345, 303488, 9947647 ####[facility] [address] [place] [address] Medical Director: Robert Ybarra MD Eosinophils/100 WBC (Bld) 0.1 % Normal [facility] Comment on above: Performed By: #### 1 , 281176, 754705, 9135147 ####[facility] [address] [place] [address] Medical Director: Robert Ybarra MD Lymph Count 1.19 x1000 Low 1.20-4.80 [facility] Comment on above: Performed By: #### 1 , 696928, 425075, 4835288 ####[facility] [address] [place] [address] Medical Director: Robert Ybarra MD Lymphocytes/100 WBC (Bld) 11.8 % Normal [facility] Comment on above: Performed By: #### 1 , 822016, 354504, 0204554 ####[facility] [address] [place] [address] Medical Director: Robert Ybarra MD Ontonagon Count 0.57 x1000 Normal 0.10-1.00 [facility] Comment on above: Performed By: #### 1 35679, 221289, 041129, 7997212 ####[facility] [address] [place] [address] Medical Director: Robert Ybarra MD Monocytes/100 WBC (Bld) 5.6 % Normal [facility] Comment on above: Performed By: #### 1 , 255280, 288890, 0027076 ####[facility] [address] [place] [address] Medical Director: Robert Ybarra MD Neutrophil Count (ANC) 8.28 x1000 Normal 1.40-8.80 [facility] Comment on above: Performed By: #### 1 , 410521, 171453, 9321318 ####[facility] [address] [place] [address] Medical Director: Robert Ybarra MD Neutrophils/100 WBC (Bld) 82.0 % Normal [facility] Comment on above: Performed By: #### 1 , 087674, 704458, 2992989 ####[facility] [address] [place] [address] Medical Director: Robert Ybarra MD B12 FOLATEon 12-04-2021 Cobalamin (Vitamin B12) [Mass/Vol] 455 pg/mL Normal 193-986 [facility] Comment on above: Performed By: #### 1 , 435182, 386864, 2977976 ####[facility] [address] [place] [address] Medical Director: Robert Ybarra MD FOLATE 14.3 ng/mL Normal 3.1-17.5 [facility] Comment on above: Performed By: #### 1 , 806673, 000434, 8278417 ####[facility] [address] [place], [place] [address]) [phone] Director: Robert Ybarra MD BLD GASon 12-04-2021 MAGGIE TEST [facility] Comment on above: Performed By: #### C D:[id number], 9411250, 643164, 094353, 692634, 029134 #### [facility] [address] [place] [address] Automatic Pattern Edger: Robert Ybarra MD Base Excess -5.0 mmol/L [facility] Comment on above: Performed By: #### C D:[id number], 4746453, 036431, 313471, 521094, 962478 #### [facility] [address] [place] [address] 10105 Automatic Pattern Edger: Robert Ybarra MD ePAP 0 cmH20 [facility] Comment on above: Performed By: #### C D:[id number], 5609032, 622711, 390127, 320939, 727704 #### [facility] [address] [place] [address]34 Automatic Pattern Edger: Robert Ybarra MD FIO2 36 % [facility] Comment on above: Performed By: #### C D:697129795, 5886389, 375823, 690612, 042334, 240073 #### [facility] [address] [place] [address] 79312 Automatic Pattern Edger: Robert Ybarra MD HCO3 (Bld) [Moles/Vol] 19.8 mmol/L Low 22.0-26.0 [facility] Comment on above: Performed By: #### C D:858401421, 2178650, 954489, 072823, 985072, 668590 #### [facility] [address] [place] [address] Automatic Pattern Edger: Robert Ybarra MD iPAP 0 cmH20 [facility] Comment on above: Performed By: #### C D:234115606, 2892289, 997648, 586172, 873479, 466467 #### [facility] [address] [place] [address]64 Automatic Pattern Edger: Robert Ybarra MD O2 L/M 4.0 Normal [facility] Comment on above: Performed By: #### C D:330390232, 7531027, 383951, 708794, 309886, 678175 #### [facility] [address] [place] [address] 99601 Automatic Pattern Edger: Robert Ybarra MD Oxygen (Bld) [Partial pressure] 82.0 mm[Hg] Normal 80.0-100.0 [facility] Comment on above: Performed By: #### C D:302082521, 4627789, 703805, 781006, 777762, 747545 #### [facility] [address] [place] [address] 71151 Automatic Pattern Edger: Robert Ybarra MD Oxygen saturation in Blood 94.1 % Normal [facility] Comment on above: Performed By: #### C D:828586149, 8642397, 932416, 604366, 301265, 939888 #### [facility] [address] [place] [address] 52653 Automatic Pattern Edger: Robert Ybarra MD PCO2 35.6 mmHg Normal 35.0-45.0 [facility] Comment on above: Performed By: #### C D:248878903, 0691237, 819329, 224072, 662353, 793308 #### [facility] [address] [place] [address] 03076 Automatic Pattern Edger: Robert Ybarra MD PEEP 0.0 cmH20 Normal [facility] Comment on above: Performed By: #### C D:272120951, 5535906, 293212, 800660, 084812, 123225 #### [facility] [address] [place] [address] 42844 Automatic Pattern Edger: Robert Ybarra MD pH (Bld) 7.363 [pH] Normal 7.350-7.450 [facility] Comment on above: Performed By: #### C D:418976867, 2006456, 651911, 712983, 287501, 788733 #### [facility] [address] [place] [address] 85981 Automatic Pattern Edger: Robert Ybarra MD PO2/FiO2 Ratio 228 Low 300-500 [facility] Comment on above: Performed By: #### C D:485369784, 7143433, 832999, 613763, 916873, 105419 #### [facility] [address] [place] [address] 33755 Automatic Pattern Edger: Robert Ybarra MD Pressure Support. 0 cmH20 [facility] Comment on above: Performed By: #### C D:926009267, 8384945, 640724, 075478, 047750, 232157 #### [facility] [address] [place] [address] 18065 Automatic Pattern Edger: Robert Ybarra MD RATE 0 bpm [facility] Comment on above: Performed By: #### C D:232169096, 6925955, 359539, 083665, 420671, 983835 #### [facility] [address] [place] [address] 67371 Automatic Pattern Edger: Robert Ybarra MD TEMP 37.0 degC Normal <=37.0 [facility] Comment on above: Performed By: #### C D:588663015, 1727669, 963932, 248757, 944379, 481554 #### [facility] [address] [place] [address] 81917 Automatic Pattern Edger: Robert Ybarra MD Type of Specimen RB Art Normal [facility] Comment on above: Result Comment: RR A RT = Right Artery RB ART = Right Brachial Artery LR ART = Left Radial Artery LB ART = Left Brachial Artery RF ART = Right Femoral Artery LF ART = Left Femoral Artery Performed By: #### C D:459814656, 5218270, 203712, 938685, 577119, 465382 #### [facility] [address] [place] [address]39 Automatic Pattern Edger: Robert Ybarra MD Ventilation Nasalcan Normal [facility] Comment on above: Performed By: #### C D:690001851, 8276829, 415755, 736407, 546970, 490308 #### [facility] [address] [place] [address] 18079 Automatic Pattern Edger: Robert Ybarra MD VT 00 mL Normal [facility] Comment on above: Performed By: #### C D:917488053, 6752894, 072216, 958159, 685441, 313522 #### [facility] [address] [place] [address] 90734 Automatic Pattern Edger: Robert Ybarra MD CBCNDon 12-04-2021 Erythrocyte distribution width (RBC) [Ratio] 14.2 % Normal 11.5-14.5 [facility] Comment on above: Performed By: #### C D:286016231, 2460199, 839391, 403027, 059088, 627131 #### [facility] [address] [place] [address] 05417 Automatic Pattern Edger: Robert Ybarra MD Hematocrit (Bld) [Volume fraction] 30.1 % Low 36.0-46.0 [facility] Comment on above: Performed By: #### C D:523883637, 7900237, 210641, 237389, 588073, 673277 #### [facility] [address] [place] [address] 34384 Automatic Pattern Edger: Robert Ybarra MD Hemoglobin (Bld) [Mass/Vol] 10.1 g/dL Low 12.0-16.0 [facility] Comment on above: Performed By: #### C D:164554467, 4235699, 395824, 880936, 335657, 555152 #### [facility] [address] [place] [address] 37951 Automatic Pattern Edger: Robert Ybarra MD Instr WBC ND 13.8 Normal [facility] Comment on above: Performed By: #### C D:713835316, 2823744, 608080, 864418, 222122, 522810 #### [facility] [address] [place] [address] 77975 Automatic Pattern Edger: Robert Ybarra MD MCH (RBC) [Entitic mass] 29.8 pg Normal 27.0-34.0 [facility] Comment on above: Performed By: #### C D:284632742, 5636480, 698415, 453718, 341275, 963711 #### [facility] [address] [place] [address] 92674 Automatic Pattern Edger: Robert Ybarra MD MCHC (RBC) [Mass/Vol] 33.6 g/dL Normal 32.0-37.0 [facility] Comment on above: Performed By: #### C D:080023543, 8179601, 617081, 019788, 525647, 625756 #### [facility] [address] [place] [address] 82457 Automatic Pattern Edger: Robert Ybarra MD MCV (RBC) [Entitic vol] 88.9 fL Normal 80.0-100.[address] [facility] Comment on above: Performed By: #### C D:529418059, 3470483, 196609, 370260, 150583, 833121 #### [facility] [address] [place] [address] 18716 Automatic Pattern Edger: Robert Ybarra MD Platelet 294 x1000 Normal 150-450 [facility] Comment on above: Performed By: #### C D:817763839, 6213488, 436085, 796966, 070270, 134962 #### [facility] [address] [place] [address] 66574 Automatic Pattern Edger: Robert Ybarra MD Platelet mean volume (Bld) [Entitic vol] 6.9 fL Low 7.4-10.4 [facility] Comment on above: Performed By: #### C D:088567149, 5394228, 085413, 586890, 660138, 115470 #### [facility] [address] [place] [address] 88776 Automatic Pattern Edger: Robert Ybarra MD RBC 3.38 x10 Low 4.20-5.40 [facility] Comment on above: Result Comment: Note : RBC morphology is normal unless otherwise stated. Evaluation performed only if differential is requested. Performed By: #### C D:019366262, 9523262, 795850, 622504, 936913, 120883 #### [facility] [address] [place] [address] 08954 Automatic Pattern Edger: Robert Ybarra MD WBC 13.8 x10 High 4.5-11.0 [facility] Comment on above: Performed By: #### C D:622333883, 1375032, 134133, 643368, 047565, 489023 #### [facility] [address] [place] [address] 44312 Automatic Pattern Edger: Robert Ybarra MD COMPMETAon 12-04-2021 Albumin [Mass/Vol] 2.9 g/dL Low 3.4-5.0 [facility] Comment on above: Performed By: #### C D:445761377, 5171092, 503685, 116678, 172131, 025355 #### [facility] [address] [place] [address] 16652 Automatic Pattern Edger: Robert Ybarra MD Albumin/Globulin [Mass ratio] 1.2 {ratio} Normal [facility] Comment on above: Performed By: #### C D:066810831, 1351486, 580243, 902791, 927786, 795270 #### [facility] [address] [place] [address] Automatic Pattern Edger: Robert Ybarra MD Alk Phos 58 unit/L Normal 45-117 [facility] Comment on above: Performed By: #### C D:777581342, 2418459, 726364, 819134, 300901, 265791 #### [facility] [address] [place] [address] 76505 Automatic Pattern Edger: Robert Ybarra MD Bilirubin [Mass/Vol] 0.25 mg/dL Normal 0.20-1.00 [facility] Comment on above: Result Comment: Use of this assay is not recommended for patients undergoing treatment with eltrombopag due to the potential for falsely elevated results. Performed By: #### C D:479802802, 4529850, 480808, 274289, 953933, 274827 #### [facility] [address] [place] [address] 58004 Automatic Pattern Edger: Robert Ybarra MD Calcium [Mass/Vol] 8.5 mg/dL Normal 8.5-10.5 [facility] Comment on above: Performed By: #### C D:470047294, 1115922, 934267, 509255, 413220, 389938 #### [facility] [address] [place] [address] 59724 Automatic Pattern Edger: Robert Ybarra MD Chloride [Moles/Vol] 106 mmol/L Normal 100-109 [facility] Comment on above: Performed By: #### C D:709372709, 4767743, 330216, 888688, 415207, 103448 #### [facility] [address] [place] [address] 15153 Automatic Pattern Edger: Robert Ybarra MD CO2 [Moles/Vol] 22.7 mmol/L Normal 21.0-32.0 [facility] Comment on above: Performed By: #### C D:678031713, 4060397, 450810, 453656, 175825, 568217 #### [facility] [address] [place] [address] 80886 Automatic Pattern Edger: Robert Ybarra MD Creatinine [Mass/Vol] 1.3 mg/dL High 0.6-1.0 [facility] Comment on above: Performed By: #### C D:462162624, 8069770, 727604, 782029, 628400, 972210 #### [facility] [address] [place] [address] 73416 Automatic Pattern Edger: Robert Ybarra MD GFR AA 46 [facility] Comment on above: Result Comment: Afri can Turkmen GFR Calc Medical judgement is necessary to [...] for drug dosing. Performed By: #### C D:731773228, 5613301, 370226, 298461, 559439, 328666 #### [facility] [address] [place] [address] 70610 Automatic Pattern Edger: Robert Ybarra MD Globulin (S) [Mass/Vol] 2.4 g/dL Normal [facility] Comment on above: Performed By: #### C D:180599566, 3616042, 769601, 024987, 405444, 871365 #### [facility] [address] [place] [address] 23326 Automatic Pattern Edger: Robert Ybarra MD Glomerular Filtration Rate 38 mL/min/1.73m? Normal [facility] Comment on above: Result Comment: [...] for drug dosing. Performed By: #### C D:[id number], 6788484, 851675, 096060, 479380, 402290 #### [facility] [address] [place] [address] Automatic Pattern Edger: Robert Ybarra MD Glucose [Mass/Vol] 186 mg/dL High 72-100 [facility] Comment on above: Result Comment: Shireen puncture should occur prior to sulfasalazine administration due to the potential for falsely depressed results. Venipuncture should occur prior to sulfapyridine administration due to the potential falsely elevated results. Baseline assay values before administration of sulfasalazine and sulfapyridine therapy would not be affected. Performed By: #### C D:[id number], [id number], 697258, 250405, 974717, 722380 #### [facility] [address] [place] [address] 33381 Automatic Pattern Edger: Robert Ybarra MD GOT 123 unit/L High 15-37 [facility] Comment on above: Result Comment: revi ewed Venipuncture should occur prior to sulfasalazine and/or sulfapyridine administration due to the potential for falsely depressed results. Baseline assay values before administration of sulfasalazine and sulfapyridine therapy would not be affected. Performed By: #### C D:[id number], 8067327, 881048, 793343, 817984, 056485 #### [facility] [address] [place] [address] 84469 Automatic Pattern Edger: Robert Ybarra MD GPT 92 unit/L High 13-56 [facility] Comment on above: Result Comment: revi ewed Venipuncture should occur prior to sulfasalazine and/or sulfapyridine administration due to the potential for falsely depressed results. Baseline assay values before administration of sulfasalazine and sulfapyridine therapy would not be affected. Performed By: #### C D:[id number], 3009307, 712943, 990657, 601903, 875250 #### [facility] [address] [place] [address] 25413 Automatic Pattern Edger: Robert Ybarra MD Osmolality [Osmolality] 289 mosm/kg Normal 275-295 [facility] Comment on above: Performed By: #### C D:[id number], 0197989, 708710, 032719, 403140, 625606 #### [facility] [address] [place] [address] 80305 Automatic Pattern Edger: Robert Ybarra MD Potassium [Moles/Vol] 4.3 mmol/L Normal 3.5-5.1 [facility] Comment on above: Performed By: #### C D:[id number], 5837355, 468691, 667231, 697284, 212040 #### [facility] [address] [place] [address] 72626 Automatic Pattern Edger: Robert Ybarra MD Protein [Mass/Vol] 5.3 g/dL Low 6.0-8.5 [facility] Comment on above: Performed By: #### C D:[id number], 9403941, 496050, 854929, 141856, 209658 #### [facility] [address] [place] [address] 13460 Automatic Pattern Edger: Robert Ybarra MD Sodium [Moles/Vol] 137 mmol/L Normal 135-145 [facility] Comment on above: Performed By: #### C D:[id number], 5426415, 430182, 514839, 201018, 639325 #### [facility] [address] [place] [address] 74937 Automatic Pattern Edger: Robert Ybarra MD Urea nitrogen [Mass/Vol] 42 mg/dL High 10-20 [facility] Comment on above: Performed By: #### C D:[id number], 0791985, 335729, 154830, 405625, 634690 #### [facility] [address] [place] [address] 44130 Automatic Pattern Edger: Robert Ybarra MD Urea nitrogen/Creatinine [Mass ratio] 31.8 mg/mg Normal [facility] Comment on above: Performed By: #### C D:[id number], 2624196, 873779, 904702, 638249, 506791 #### [facility] [address] [place] [address] 44130 Automatic Pattern Edger: Robert Ybarra MD CPKoscottie 12-04-2021 CPK 3684 unit/L Critically abnormal [address] [place] [address] Comment on above: Result Comment: Crit ical Result(s) called at: 17:08:41 on 12/04/2021 by: Kp deninson RBR to: TC Performed By: #### C D:[id number], 9946716, 894466, 067729, 685928, 416987 #### [facility] [address] [place] [address] 44130 Automatic Pattern Edger: Robert Ybarra MD CPK 2217 unit/L Critically abnormal [address] [place] [address] Comment on above: Result Comment: Crit ical Result(s) called at: 04:10:50 on 12/04/2021 by: Byron dennison, RBR to: SF&XA&&XA&reviewed Performed By: #### C D:[id number], 6322706, 430461, 877856, 180071, 835405 #### [facility] [address] [place] [address] 44130 Automatic Pattern Edger: Robert Ybarra MD CPK 926 unit/L High [address] [place] [address] Comment on above: Performed By: #### 1 28351 ####[facility] [address] [place] [address] 85882 Medical Director: Robert Ybarra MD Consult Reporton 12-04-2021 Consult Report Patient: YUSUF MEDINA Age: 85 years Sex: Female : 1935 Associated Diagnoses: None Author: YENNY HODGE, [facility] Consult Note IMPRESSION: Mechanical fall. Rhabdomyolysis Type II NV elevated troponin without ACS Afib with slow [...] MG TAB 650 mg 2 tabs, ORAL, [id number] ACETAMINOPHEN 325 MG TAB 650 mg 2 tabs, ORAL, [id number] DEXTROSE 50% 50ML SYRINGE/VIAL 12.5 g 25 mL, IV Push, PRN DEXTROSE 50% 50ML SYRINGE/VIAL 25 g 50 mL, IV Push, PRN GLUCAGON 1MG INJ 1 mg, IM, PRN GLUCOSE GEL 15GM/42ML 15 g 1 packets, ORAL, PRN GLUCOSE GEL 15GM/42ML 30 g 2 packets, ORAL, PRN ONDANSETRON=ZOFRAN INJ 4 mg 2 mL, IV Push, [id number] Allergies (1) Active Reaction No Known Allergies [...] available. BNP No qualifying data available. Normal [facility] Consult Report Patient: YUSUF MEDINA Age: 85 years Sex: Female : 1935 Associated Diagnoses: None Author: JEREMY DENTON MDSH History of Present Illness 85-year-old lady. Admitted 12/03/2021 Fell. Also confused. History was limited also because of language barrier. Apparently lives alone. 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 She fell. Unknown why she fell [...] is able to speak little bit of Burmese. Her son lives in the [facility]. She lives alone. She said she went to car pick up driver eggs in the chicken coop and there [...] MG TAB 650 mg 2 tabs, ORAL, [id number] ACETAMINOPHEN 325 MG TAB 650 mg 2 tabs, ORAL, [id number] DEXTROSE 50% 50ML SYRINGE/VIAL 12.5 g 25 mL, IV Push, PRN DEXTROSE 50% 50ML SYRINGE/VIAL 25 g 50 mL, IV Push, PRN GLUCAGON 1MG INJ 1 mg, IM, PRN GLUCOSE GEL 15GM/42ML 15 g 1 packets, ORAL, PRN GLUCOSE GEL 15GM/42ML 30 g 2 packets, ORAL, PRN ONDANSETRON=ZOFRAN INJ 4 mg 2 mL, IV Push, [id number] PERFLUTREN 2 ML INJ 2 ML, IV [...] language were okay. She spoke in broken Burmese. Good eye contact. Followed commands. She knew [...] Glucose Random (more content not included)... Normal [facility] Consult Report Patient: YUSUF MEDINA [...] Tylenol: 650 mg = 2 tabs, ORAL, [id number], PRN: Mild Pain Tylenol: 650 mg = 2 tabs, ORAL, [id number], PRN: Temperature Above 102 Zofran: 4 mg = 2 mL, IV Push, [id number], PRN: Nausea/Vomiting glucagon: 1 mg, IM, PRN, [...] MG TAB 650 mg 2 tabs, ORAL, [id number] ACETAMINOPHEN 325 MG TAB 650 mg 2 tabs, ORAL, K4YQHDU DEXTROSE 50% 50ML SYRINGE/VIAL 12.5 g 25 mL, IV Push, PRN DEXTROSE 50% 50ML SYRINGE/VIAL 25 g 50 mL, IV Push, PRN GLUCAGON 1MG INJ 1 mg, IM, PRN GLUCOSE GEL 15GM/42ML 15 g 1 packets, ORAL, PRN GLUCOSE GEL 15GM/42ML 30 g 2 packets, ORAL, PRN ONDANSETRON=ZOFRAN INJ 4 mg 2 mL, IV Push, [id number] PERFLUTREN 2 ML INJ 2 ML, IV [...] No activ (more content not included)... Normal [facility] ED Discharge Educationon ED Discharge Education Normal [facility] ED Patient Summaryon 022 ED Patient Summary [facility] Emergency Department Discharge Instructions [address] [place] [address] \.br\(Patient Copy)\.br\ \.br\Name: CAROLDELISAA : 1935 \.br\Allergies: No Known Allergies\.br\Diagnosi s: Diagnoses This Visit\.br\ Abrasion of right elbow (S50.311A)\.br\ acute Hypothermia (T68.XXXA)\.br\ Contusion of right thigh (S70.11XA)\.br\ Fall ([id number])\.br\ Hypothermia due to exposure ([id number])\.br\\ .br\\.br\ \.br\ Visit Date: 12/03/2021 19:54:53 \.br\ Current Date Time: 12/04/2021 01:06:15 \.br\Address: [address] [place] [address] \.br\ \.br\ \.br\Primary Care Provider: \.br\Name: RADHA CRAMER\.br\ \.br\ \.br\Emergency Department Care Providers: \.br\ Primary Physician: IDA ALMODOVAR MD \.br\ \.br\ \.br\\.br\Thank you for choosing [facility] for your emergency care. You are very important to us. Our goal is to demonstrate our high quality medical care, and provide you with a very good patient experience.\.br\\.br\Y ou may receive a survey about our service. Please take the time to complete the survey and return it so we can continue to enhance our service.\.br\\.br\Than k you again for allowing the [facility] Emergency Department to care for your medical needs. If you have questions about your care or follow up information please contact us at [phone].\.br\\.br \ Follow-Up Instructions\.br\ \.b r\CAROL YUSUF has been given these follow-up instructions:\.br\\.br \Patient Education Materials\.br\ \.br\DELISA RUDDA has been given the following patient education materials:\.br\\.br\ \.br\BEFORE YOU LEAVE\.br\\.br\Set up your [facility] [employer] account!\.br\ \.br\[employer] is a secure, online health management tool that connects you to portions of your hospital-based electronic medical record, allowing you to see test results, manage appointments, access discharge care instructions and much more.\.br\ \.br\You can access [employer] from a computer, tablet or smartphone. Enrollment/registratio n is required. If you do not have a [employer] account, please provide us with an email address before you leave so that we may set up an account for you.\.br\ \.br\New to [employer]!\.br\You may now securely connect some of the health management apps you use (e.g., fitness trackers, dietary trackers, etc.) to your health record in [facility] [employer]. This new feature provides expanded access to your health and wellness data, which will help you and your care team make informed decisions about your health care. \.br\If you are interested in using a health management gordo not currently connected to [employer], contact a Drop Hammer Mechanic at [phone] or [email or web address]. We will determine if the gordo meets the technical requirements to connect to [facility] [employer] and assure the security of your private [...] health or substance abuse issue, please call [facility] at [phone] or the National Suicide Prevention Lifeline at .\.br\ \.br\\.br\ \.br\ \.br\CAROL Almazan VIORICA, have received the follow-up provider(s) list, medication information and patient education materials/instructions and have verbalized understanding.\.br\ \.br\ \.br\Patient Signature \.br\Kalen e \.br\Leif e \.br\ \.br\ \.br\ Provider Signature \.br\Kalen e \.br\Leif e Normal [facility] ED Physician Reporton 2021 ED [...] 20:47:00, rate 37, No ST-T changes, normal DC & QRS intervals, EP Interp, The Rhythm [...] \.br\ Lymph % 24.2 % NA \.br\ [place] % 3.7 % NA \.br\ Neutrophil % 70.8 % NA \.br\ Eosin % 0.9 % NA \.br\ Basos % 0.4 % NA \.br\ Lymph Count 5.46 x1000 HI \.br\ [place] Count 0.84 x1000 NORMAL \.br\ Neutrophil Count [...] mg/dL H (more content not included)... Normal [facility] ED Progress Noteon 2 ED Progress Note 12/03/211954 PT TO ROOM 12 ARRIVED BY SQUAD TRAUMA CALLED FROM FIELD, SEE PAPER CHART FOR INFO. Normal [facility] HEMOon 12-04-2021 DIFF? No Normal [facility] Comment on above: Performed By: #### 1 , 564966, 779127, 7117158 ####[facility] [address] [place], [place] [address]) [phone] Director: Robert Ybarra MD Erythrocyte distribution width (RBC) [Ratio] 14.7 % High 11.5-14.5 [facility] Comment on above: Performed By: #### 1 , 850349, 763167, 2757903 ####[facility] [address] [place], [place] [address]) [phone] Director: Robert Ybarra MD Hematocrit (Bld) [Volume fraction] 30.7 % Low 36.0-46.0 [facility] Comment on above: Performed By: #### 1 , 880394, 702393, 0374954 ####[facility] [address] [place], [place] [address]) [phone] Director: Robert Ybarra MD Hemoglobin (Bld) [Mass/Vol] 10.4 g/dL Low 12.0-16.0 [facility] Comment on above: Performed By: #### 1 , 894039, 088306, 6176245 ####[facility] [address] [place], [place] [address]) [phone] Director: Robert Ybarra MD Instr WBC 10.1 Normal [facility] Comment on above: Performed By: #### 1 , 052607, 652918, 4289989 ####[facility] [address] [place], [place] [address]) [phone] Director: Robert Ybarra MD MCH (RBC) [Entitic mass] 30.2 pg Normal 27.0-34.0 [facility] Comment on above: Performed By: #### 1 , 115090, 177798, 9042673 ####[facility] [address] [place], [place] [address]) [phone] Director: Robert Ybarra MD MCHC (RBC) [Mass/Vol] 33.9 g/dL Normal 32.0-37.0 [facility] Comment on above: Performed By: #### 1 08557, 761894, 639898, 4908783 ####[facility] [address] [place] [address] Medical Director: Robert Ybarra MD MCV (RBC) [Entitic vol] 89.3 fL Normal 80.0-100.[address] [facility] Comment on above: Performed By: #### 1 , 000785, 833530, 1911826 ####[facility] [address] [place] [address] Medical Director: Robert Ybarra MD Nucleated RBC 0 /100WBC Normal [facility] Comment on above: Performed By: #### 1 , 043182, 699828, 9480446 ####[facility] [address] [place] [address] Medical Director: Robert Ybarra MD Platelet 310 x1000 Normal 150-450 [facility] Comment on above: Performed By: #### 1 34970, 166529, 216422, 8533944 ####[facility] [address] [place] [address]16 Medical Director: Robert Ybarra MD Platelet mean volume (Bld) [Entitic vol] 7.2 fL Low 7.4-10.4 [facility] Comment on above: Performed By: #### 1 , 931634, 122560, 1872781 ####[facility] [address] [place] [address] Medical Director: Robert Ybarra MD RBC 3.44 x10 Low 4.20-5.40 [facility] Comment on above: Result Comment: Note : RBC morphology is normal unless otherwise stated. Evaluation performed only if differential is requested. Performed By: #### 1 49951, 810976, 092382, 3539982 ####[facility] [address] [place] [address] Medical Director: Robert Ybarra MD WBC 10.1 x10 Normal 4.5-11.0 [facility] Comment on above: Performed By: #### 1 88773, 397299, 215457, 0993778 ####[facility] [address] [place] [address] Medical Director: Robert Ybarra MD HGB A1Con 12-04-2021 HbA1c (Bld) [Mass fraction] 6.7 % Normal [facility] Comment on above: Result Comment: Refe rence Range: Diabetic Greater than or equal to 6.5 % Prediabetic 5.7?6.4 % Normal Less than 5.7 % Performed By: #### 1 81651 ####[facility] [address] [place] [address] Medical Director: Robert Ybarra MD IRON GROUPon 12-04-2021 Iron [Mass/Vol] 36 ug/dL Low 40-170 [facility] Comment on above: Result Comment: Resu lts may be inaccurate if performed within 14 days of IV iron dextran administration. Performed By: #### 1 63315, 218040, 547684, 1390550 ####[facility] [address] [place] [address] Medical Director: Robert Ybarra MD Saturation 9.8 % Low 20.0-50.0 [facility] Comment on above: Performed By: #### 1 18874, 233938, 384166, 9072224 ####[facility] [address]cb[address] [place] [address] Medical Director: Robert Ybarra MD TIBC 367 ug/dl Normal 250-450 [facility] Comment on above: Result Comment: Resu lts may be inaccurate if performed within 14 days of IV iron dextran administration. Performed By: #### 1 21817, 722737, 317434, 5585155 ####[facility] [address] [place] [address] Medical Director: Robert Ybarra MD MG LEVELon 12-04-2021 Magnesium [Mass/Vol] 1.6 mg/dL Normal 1.6-2.6 [facility] Comment on above: Performed By: #### C D:[id number], 0445886, 569462, 076826, 284698, 457786 #### [facility] [address] [place] [address] Automatic Pattern Edger: Robert Ybarra MD Nursing Clinical Noteon 11-15 [...] at all times. Hourly rounding completed. Normal [facility] Nursing Clinical Note got report [...] 37.5, bear hugger is still on. Normal [facility] POC Glucoseon 12-04-2021 Glucose [Mass/Vol] 152 mg/dL High 72-100 [facility] Comment on above: Performed By: #### C D:[id number], 6728101, 178391, 751304, 169468, 339750 #### [facility] [address] [place] [address] 32382 Automatic Pattern Edger: Robert Ybarra MD Glucose [Mass/Vol] 177 mg/dL High 72-100 [facility] Comment on above: Performed By: #### C D:[id number], 5135665, 688831, 796698, 090732, 918796 #### [facility] [address] [place] [address] Automatic Pattern Edger: Robert Ybarra MD Progress Note-Physicianon Progress Note-Physician [...] BMP in 24 hrs. Gertrudis Beckford DO Inside Sales Coordinator Normal [facility] Progress Note-Physician Patient: YUSUF MEDINA [...] she completely recovered with son arriving from [place] this afternoon. Objective Vital Signs (last 24 [...] Plan Diagnosis Abrasion of right elbow - UNX69-EX S50.311A, Emergency medicine, Medical. Acute Hypothermia - QGU24-HU T68.XXXA, Emergency medicine, Medical. Contusion of right thigh - XGY67-CL S70.11XA, Emergency medicine, Medical. Fall - PNED [id number], Medical. Hypothermia due to exposure - PNED [id number], Medical. She has recovered from hypothermic episode and is now at normal baseline mental status and does not consent to detention facility placement. She will be discharged to home with home health care and family will monitor condition and safety.. Diagnosis Chronic kidney disease (CKD), stage III (moderate) - IBV71-EW N18.30, Medical. The patient's creatinine level is at their normal baseline. There is no significant changes in the patient's GFR. The patient's present medications will be continued. The patient's renal function will be monitored.. Diagnosis Diabetes mellitus type II, controlled - CDK87-II E11.9, Medical. The patient's blood sugars are adequately controlled. The present medications will be continued, with glucometer checks before meals and at bedtime and sliding scale coverage.. Education and Follow-up: Discharge Planning: Plan to discharge ( To home, Total time that I spent on this patient's discharge is greater than 30 minutes; 32minutes total. ). Normal [facility] T4on 12-04-2021 T4 [Mass/Vol] 9.9 ug/dL Normal 4.5-10.9 [facility] Comment on above: Result Comment: Shireen puncture should occur prior to sulfasalazine administration due to the potential for falsely elevated results. Baseline assay values before administration of sulfasalazine and sulfapyridine therapy would not be affected. Performed By: #### C D:[id number], 0747747, 040783, 520404, 675417, 094043 #### [facility] [address] [place], [place] [address] Automatic Pattern Edger: Robert Ybarra MD TROPONIN HS 2HRon 12-04-2021 Delta Troponin 2 Hr 39 pg/mL High 0-14 [facility] Comment on above: Result Comment: The term acute myocardial infarction should be used when there is acute myocardial injury with clinical evidence of acute myocardial ischemia and the rise or fall of serial Troponin HS values (delta troponin) greater than or equal to 15 pg/mL with at least one Troponin HS value above the 99th percentile reference range Performed By: #### C D:[id number] #### [facility] [address] [place], [place] [address] Automatic Pattern Edger: Robert Ybarra MD Troponin HS 2 Hr 105 pg/mL High 3-54 [facility] Comment on above: Performed By: #### C D:[id number] #### [facility] [address] [place] [address] Automatic Pattern Edger: Robert Ybarra MD TROPONIN HS 6HRon 12-04-2021 Delta Troponin 6 Hr 232 pg/mL [facility] 0-14 [facility] Comment on above: Result Comment: The term acute myocardial infarction should be used when there is acute myocardial injury with clinical evidence of acute myocardial ischemia and the rise or fall of serial Troponin HS values (delta troponin) greater than or equal to 15 pg/mL with at least one Troponin HS value above the 99th percentile reference range Performed By: #### C D:[id number], 7232079, 961518, 810114, 961629, 434944 #### [facility] [address] [place] [address] Automatic Pattern Edger: Robert Ybarra MD Troponin HS 6 Hr 337 pg/mL Critically abnormal 3-54 [facility] Comment on above: Result Comment: Crit ical Result(s) called at: 04:06:04 on 12/04/2021 by: Byron dennison, RBR to: SF Performed By: #### C D:[id number], 2478323, 227875, 444308, 241597, 509854 #### [facility] [address] [place] [address] Automatic Pattern Edger: Robert Ybarra MD TSHon 12-04-2021 TSH Qn 0.53 m[IU]/L Normal 0.36-3.74 [facility] Comment on above: Result Comment: High levels of serum biotin may interfere with this test. Performed By: #### C D:[id number], 0855945, 579960, 351664, 551645, 678789 #### [facility] [address] [place] [address] Automatic Pattern Edger: Robert Ybarra MD U DOA WITH FENTANYLon 2021 Amphetamines, U Negative Normal [facility] Comment on above: Result Comment: [...] non-medical purposes. Urine for Drugs of Abuse [place] Levels: Barbiturate 200 ng/ml PCP 25 ng/ml Cocaine 300 ng/ml Opiates 2000 ng/ml Amphetamines 1000 ng/ml Benzodiazepines 200 ng/ml THC 50 ng/ml EXTC 500 ng/ml Performed By: #### C D:[id number] ####[facility] [address] [place], [place] [address]) [phone] Director: Robert Ybarra MD Barbituates, [facility] Comment on above: Performed By: #### C D:[id number] ####[facility] [address] [place], [place] [address]) [phone] Director: Robert Ybarra MD Benzodiazepines, Negative [facility] Comment on above: Performed By: #### C D:[id number] ####[facility] [address] [place], [place] [address]) [phone] Director: Robert Ybarra MD Cocaine, [facility] Comment on above: Performed By: #### C D:[id number] ####[facility] [address]ef[address] [place] [address] Medical Director: Robert Ybarra MD Ecstasy, [facility] Comment on above: Performed By: #### C D:[id number] ####[facility] [address] [place] [id number]) [phone] Director: Robert Ybarra MD Fentanyl, Negative [facility] Comment on above: Result Comment: Urin adam [...] be used for non-medical purposes. Urine Fentanyl [place] Level: 1 ng/ml Performed By: #### C D:[id number] ####[facility] [address] [place] [id number] Medical Director: Robert Ybarra MD Opiates, U Negative Normal [facility] Comment on above: Performed By: #### C D:[id number] ####[facility] Lxurskwl65[address] [place], [place] [id number]) [phone] Director: Robert Ybarra MD PCP, U Negative Normal [facility] Comment on above: Performed By: #### C D:[id number] ####[facility] [address] [place] [address] Medical Director: Robert Ybarra MD THC, U Negative Normal [facility] Comment on above: Performed By: #### C D:[id number] ####[facility] Idt[address]996 [place], [place] [id number]) [phone] Director: Robert Ybarra MD UAon 12-04-2021 Appearance, U Hazy Normal [facility] Comment on above: Performed By: #### C D:[id number], 4949514, 585882, 829669, 237071, 346452 #### [facility] [address] [place] [address] 46155 Automatic Pattern Edger: Robert Ybarra MD Bacteria, U Occasional Normal [facility] Comment on above: Performed By: #### C D:[id number], 3798020, 423274, 112083, 189793, 675779 #### [facility] [address] [place] [address] Automatic Pattern Edger: Robert Ybarra MD Bilirubin, U Negative Normal Negative [facility] Comment on above: Performed By: #### C D:[id number], 6998304, 291235, 218191, 907087, 537671 #### [facility] [address] [place] [address] Automatic Pattern Edger: Robert Ybarra MD Blood, U Large Abnormal Negative [facility] Comment on above: Performed By: #### C D:[id number], 0866456, 063886, 650387, 981427, 716920 #### [facility] [address] [place] [address] 93063 Automatic Pattern Edger: Robert Ybarra MD Color, U Yellow Normal [facility] Comment on above: Performed By: #### C D:[id number], 4345143, 268062, 929663, 086976, 299464 #### [facility] [address] [place] [address] 10455 Automatic Pattern Edger: Robert Ybarra MD Glucose Qual, U 150 mg/dl Abnormal Negative [facility] Comment on above: Performed By: #### C D:[id number], 6600732, 364706, 089114, 866596, 710765 #### [facility] [address] [place] [address] 69508 Automatic Pattern Edger: Robert Ybarra MD Ketones, U Trace Abnormal Negative [facility] Comment on above: Performed By: #### C D:[id number], 7024521, 490107, 194795, 918184, 475522 #### [facility] [address] [place] [address] 30325 Automatic Pattern Edger: Robert Ybarra MD Leukocyte Esterase, U Negative Normal Negative [facility] Comment on above: Performed By: #### C D:[id number], 2985094, 400039, 345655, 105165, 623716 #### [facility] [address] [place] [address] 26819 Automatic Pattern Edger: Robert Ybarra MD Mucous, U Occasional Normal [facility] Comment on above: Performed By: #### C D:[id number], 2812562, 187228, 108090, 282428, 478473 #### [facility] [address] [place] [address] Automatic Pattern Edger: Robert Ybarra MD Nitrite, U Negative Normal Negative [facility] Comment on above: Performed By: #### C D:[id number], 8893012, 717100, 196965, 339229, 957475 #### [facility] [address] [place] [address] 38700 Automatic Pattern Edger: Robert Ybarra MD pH, U 5.0 Normal 4.5-8.0 [facility] Comment on above: Performed By: #### C D:[id number], 2489580, 206383, 566609, 843924, 775638 #### [facility] [address] [place] [address] 69211 Automatic Pattern Edger: Robert Ybarra MD Protein, U Negative Normal Negative [facility] Comment on above: Performed By: #### C D:[id number], 8400996, 783373, 464298, 822580, 634456 #### [facility] [address] [place] [address] 96058 Automatic Pattern Edger: Robert Ybarra MD RBC/HPF, U 2 #/HPF Normal 0-3 [facility] Comment on above: Performed By: #### C D:[id number], 8888143, 024508, 182434, 738443, 742530 #### [facility] [address] [place] [address] 36390 Automatic Pattern Edger: Robert Ybarra MD Specific [place], U 1.009 Normal 1.001-1.035 [facility] Comment on above: Performed By: #### C D:[id number], 2205058, 603559, 334122, 097819, 859588 #### [facility] [address] [place] [address] 54236 Automatic Pattern Edger: Robert Ybarra MD Squamous Epithelial Cells, U 1 #/HPF Normal [facility] Comment on above: Performed By: #### C D:[id number], 3569221, 721933, 297997, 417606, 769011 #### [facility] [address] [place] [address] Automatic Pattern Edger: Robert Ybarra MD U MICRO Indicated Normal [facility] Comment on above: Performed By: #### C D:[id number], 4540878, 519383, 931266, 181782, 561773 #### [facility] [address] [place] [address] 83228 Automatic Pattern Edger: Robert Ybarra MD Urobilinogen Qual, U <2.0 mg/dl Normal <2.0 mg/dl [facility] Comment on above: Result Comment: EU/d l and mg/dl are equivalent units. Performed By: #### C D:[id number], 2867031, 584218, 943297, 306279, 568810 #### [facility] [address] [place] [address] 43972 Automatic Pattern Edger: Robert Ybarra MD WBC/HPF, U 2 #/HPF Normal 0-5 [facility] Comment on above: Performed By: #### C D:[id number], 4068902, 577643, 553675, 474154, 881248 #### [facility] [address] [place] [address] 73446 Automatic Pattern Edger: Robert Ybarra MD VIT D 25 LEVELon 12-04-2021 Vit D 25 16 ng/mL Normal [facility] Comment on above: Result Comment: Less than 20 ng/ml Deficient 20-30 ng/ml Insufficient 30-100 ng/ml Sufficient Greater than 100 ng/ml Potential toxicity Patients who have recently undergone fluorescein dye angiography in the past 48 to 72 hours (or longer if renal insufficient) may have falsely elevated results. Performed By: #### 9 [id number] ####[facility] [address] [place] [address] Medical Director: Robert Ybarra MD XR ELBOW [...] by: Silvia Hill DO 12/03/2021 10:59 PM SALESPERSON [employer] Technologist: JUAN PABLO PHILIPPE Dictated By: SILVIA HILL DO Signed By: SILVIA HILL DO Signed Out: 12/03/21 23:59:23 Normal [facility] ALCOHOL SERUMon 12-03-2021 Alcohol, Serum <3 Normal [facility] Comment on above: Result Comment: Note : Alcohol values performed at [facility] are performed on Serum and reported in mg/dl, which is different then the state reporting units of g/dl which is performed on whole blood. Result reporting units are based on test methodology and are not interchangable. Performed By: #### C D:[id number], 9960283, 596876, 407147, 934858, 262141 #### [facility] [address] [place] [address] 76003 Automatic Pattern Edger: Robert Ybarra MD APTTon 12-03-2021 aPTT Coag (Bld) [Time] 30.4 s Normal 26.0-39.0 [facility] Comment on above: Performed By: #### C D:[id number], 9668072, 146042, 726797, 264987, 908950 #### [facility] [address] [place] [address] 48518 Automatic Pattern Edger: Robert Ybarra MD AUTO DIFFon 12-03-2021 Baso Count 0.09 x1000 Normal 0.00-0.20 [facility] Comment on above: Performed By: #### C D:[id number], 0583951, 834801, 811831, 794253, 910663 #### [facility] [address] [place] [address] 81680 Automatic Pattern Edger: Robert Ybarra MD Basos % 0.4 % Normal [facility] Comment on above: Performed By: #### C D:060759054, 3599069, 419065, 920965, 203231, 751641 #### [facility] [address] [place] [address] 35470 Automatic Pattern Edger: Robert Ybarra MD Eos Count 0.21 x1000 Normal 0.00-0.50 [facility] Comment on above: Performed By: #### C D:[id number], 7111973, 982361, 284842, 784238, 469885 #### [facility] [address] [place], [place] [address] Automatic Pattern Edger: Robert Ybarra MD Eosinophils/100 WBC (Bld) 0.9 % Normal [facility] Comment on above: Performed By: #### C D:[id number], 2325949, 470462, 977803, 514552, 615079 #### [facility] [address] [place] [address] 68005 Automatic Pattern Edger: Robert Ybarra MD Lymph Count 5.46 x1000 High 1.20-4.80 [facility] Comment on above: Performed By: #### C D:[id number], 1819598, 679890, 006596, 510227, 935129 #### [facility] [address] [place] [address] 94753 Automatic Pattern Edger: Robert Ybarra MD Lymphocytes/100 WBC (Bld) 24.2 % Normal [facility] Comment on above: Performed By: #### C D:[id number], 5913473, 201751, 941821, 956092, 524625 #### [facility] [address] [place] [address]648 Automatic Pattern Edger: Robert Ybarra MD [place] Count 0.84 x1000 Normal 0.10-1.00 [facility] Comment on above: Performed By: #### C D:246179043, 1073130, 412524, 694748, 317928, 446995 #### [facility] [address] [place] [address] 87857 Automatic Pattern Edger: Robert Ybarra MD Monocytes/100 WBC (Bld) 3.7 % Normal [facility] Comment on above: Performed By: #### C D:[id number], 8924532, 778885, 546155, 379044, 411127 #### [facility] [address] [place] [address] 18411 Automatic Pattern Edger: Robert Ybarra MD Neutrophil Count (ANC) 15.99 x1000 High 1.40-8.80 [facility] Comment on above: Performed By: #### C D:[id number], 2689200, 504722, 021670, 307949, 560777 #### [facility] [address] [place] [address] 20654 Automatic Pattern Edger: Robert Ybarra MD Neutrophils/100 WBC (Bld) 70.8 % Normal [facility] Comment on above: Performed By: #### C D:[id number], 9238691, 091092, 694467, 050779, 949247 #### [facility] [address] [place] [address] 53185 Automatic Pattern Edger: Robert Ybarra MD Scan Differential Diff Scd Normal [facility] Comment on above: Result Comment: Slid e reviewed by technologist. Performed By: #### C D:[id number], 1623232, 810118, 586756, 420808, 733060 #### [facility] [address] [place] [address] 19185 Automatic Pattern Edger: Robert Ybarra MD BLD GASon 12-03-2021 MAGGIE TEST Normal [facility] Comment on above: Performed By: #### C D:[id number], 5429682, 918520, 143140, 567869, 357027 #### [facility] [address] [place] [address] Automatic Pattern Edger: Robert Ybarra MD Base Excess -11.8 mmol/L [facility] Comment on above: Performed By: #### C D:[id number], 0922888, 259006, 298192, 886158, 517964 #### [facility] [address] [place] [address] 48298 Automatic Pattern Edger: Robert Ybarra MD ePAP 0 cmH20 [facility] Comment on above: Performed By: #### C D:[id number], 9114847, 880213, 962891, 749297, 794826 #### [facility] [address] [place] [address] 43115 Automatic Pattern Edger: Robert Ybarra MD FIO2 100 % Normal [facility] Comment on above: Performed By: #### C D:[id number], 8399407, 774547, 099049, 289779, 593632 #### [facility] [address] [place] [address] 12902 Automatic Pattern Edger: Robert Ybarra MD HCO3 (Bld) [Moles/Vol] 15.5 mmol/L Low 22.0-26.[address] [facility] Comment on above: Performed By: #### C D:[id number], 1189611, 919220, 248667, 191607, 257482 #### [facility] [address] [place] [address] 94656 Automatic Pattern Edger: Robert Ybarra MD iPAP 0 cmH20 [facility] Comment on above: Performed By: #### C D:[id number], 0564067, 818320, 954777, 167718, 878917 #### [facility] [address] [place] [address] 42154 Automatic Pattern Edger: Robert Ybarra MD O2 L/M 15.0 [facility] Comment on above: Performed By: #### C D:[id number], 4040309, 455692, 118042, 899261, 715694 #### [facility] [address] [place] [address] 47932 Automatic Pattern Edger: Robert Ybarra MD Oxygen (Bld) [Partial pressure] 64.6 mm[Hg] Low 80.0-100.0 [facility] Comment on above: Performed By: #### C D:[id number], 1834001, 588010, 286130, 291749, 394535 #### [facility] [address] [place] [address] 81309 Automatic Pattern Edger: Robert Ybarra MD Oxygen saturation in Blood 86.6 % Normal [facility] Comment on above: Performed By: #### C D:[id number], 7328583, 289998, 103126, 157230, 960531 #### [facility] [address] [place] [address] 37240 Automatic Pattern Edger: Robert Ybarra MD PCO2 41.0 mmHg Normal 35.0-45.0 [facility] Comment on above: Performed By: #### C D:[id number], 7841207, 954172, 237659, 541777, 356721 #### [facility] [address] [place] [address] 60800 Automatic Pattern Edger: Robert Ybarra MD PEEP 0.0 cmH20 Normal [facility] Comment on above: Performed By: #### C D:[id number], 4643097, 641340, 283365, 034410, 640089 #### [facility] [address] [place] [address] 43857 Automatic Pattern Edger: Robert Ybarra MD pH (Bld) 7.196 [pH] Critically abnormal 7.350-7.450 [facility] Comment on above: Result Comment: RESU LTS CALLED WITH READBACK TO DR. SABRINA MOHAN 12/03/2021 21:02:41 EST. Performed By: #### C D:[id number], 2886937, 915816, 457608, 628369, 524078 #### [facility] [address] [place] [address] 38233 Automatic Pattern Edger: Robert Ybarra MD PO2/FiO2 Ratio 65 Low 300-500 [facility] Comment on above: Performed By: #### C D:[id number], 7535479, 272124, 825934, 723974, 498279 #### [facility] [address] [place] [address] 98777 Automatic Pattern Edger: Robert Ybarra MD Pressure Support. 0 cmH20 [facility] Comment on above: Performed By: #### C D:[id number], 2024994, 257223, 230088, 753300, 152144 #### [facility] [address] [place] [address] 65242 Automatic Pattern Edger: Robert Ybarra MD RATE 0 bpm [facility] Comment on above: Performed By: #### C D:[id number], 9012361, 409604, 423689, 493679, 923054 #### [facility] [address] [place] [address] 71266 Automatic Pattern Edger: Robert Ybarra MD TEMP 37.0 degC Normal <=37.0 [facility] Comment on above: Performed By: #### C D:[id number], 6882496, 716697, 190176, 176294, 254671 #### [facility] [address] [place] [address] 93560 Automatic Pattern Edger: Robert Ybarra MD Type of Specimen Venous Normal [facility] Comment on above: Result Comment: RR A RT = Right Artery RB ART = Right Brachial Artery LR ART = Left Radial Artery LB ART = Left Brachial Artery RF ART = Right Femoral Artery LF ART = Left Femoral Artery Performed By: #### C D:[id number], 5696898, 225812, 862610, 662776, 130813 #### [facility] [address] [place] [address] Automatic Pattern Edger: Robert Ybarra MD Ventilation Mask [facility] Comment on above: Performed By: #### C D:[id number], 1621303, 090158, 591385, 802829, 458288 #### [facility] [address] [place] [address] Automatic Pattern Edger: Robert Ybarra MD VT 00 mL [facility] Comment on above: Performed By: #### C D:[id number], 6035843, 757099, 915456, 866161, 778828 #### [facility] [address] [place] [address] 13747 Automatic Pattern Edger: Robert Ybarra MD COMPMETAon 12-03-2021 Albumin/Globulin [Mass ratio] 1.3 {ratio} [facility] Comment on above: Performed By: #### C D:[id number], 2155583, 827271, 542177, 957402, 486347 #### [facility] [address] [place] [address] 62958 Automatic Pattern Edger: Robert Ybarra MD GFR AA 36 [facility] Comment on above: Result Comment: Afri can Turkmen GFR Calc Medical judgement is necessary to [...] for drug dosing. Performed By: #### C D:[id number], 0826539, 473628, 318016, 417874, 346800 #### [facility] [address] [place] [address] Automatic Pattern Edger: Robert Ybarra MD Glomerular Filtration Rate 30 mL/min/1.73m? Normal [facility] Comment on above: Result Comment: [...] for drug dosing. Performed By: #### C D:[id number], 6457503, 327839, 024947, 277244, 785599 #### [facility] [address] [place] [address] 44929 Automatic Pattern Edger: Robert Ybarra MD Osmolality [Osmolality] 297 mosm/kg High 275-295 [facility] Comment on above: Performed By: #### C D:108397995, 1334304, 286816, 186275, 312229, 312521 #### [facility] [address] [place] [address] 28548 Automatic Pattern Edger: Robert Ybarra MD Urea nitrogen/Creatinine [Mass ratio] 27.3 mg/mg Normal [facility] Comment on above: Performed By: #### C D:898698287, 7203988, 492475, 717306, 925238, 002671 #### [facility] [address] [place] [address] 33041 Automatic Pattern Edger: Robert Ybarra MD Albumin [Mass/Vol] 3.2 g/dL Low 3.4-5.0 [facility] Comment on above: Performed By: #### C D:[id number], 8373214, 805799, 013552, 410368, 037955 #### [facility] [address] [place] [address] 55609 Automatic Pattern Edger: Robert Ybarra MD Alk Phos 60 unit/L Normal 45-117 [facility] Comment on above: Performed By: #### C D:[id number], 4886285, 682963, 459783, 055153, 532364 #### [facility] [address] [place] [address] Automatic Pattern Edger: Robert Ybarra MD Bilirubin [Mass/Vol] 0.26 mg/dL Normal 0.20-1.00 [facility] Comment on above: Result Comment: Use of this assay is not recommended for patients undergoing treatment with eltrombopag due to the potential for falsely elevated results. Performed By: #### C D:[id number], 2678829, 640647, 069265, 712653, 116062 #### [facility] [address] [place] [address] 12874 Automatic Pattern Edger: Robert Ybarra MD Calcium [Mass/Vol] 8.9 mg/dL Normal 8.5-10.5 [facility] Comment on above: Performed By: #### C D:[id number], 1071467, 777994, 270653, 284197, 585386 #### [facility] [address] [place] [address] 23570 Automatic Pattern Edger: Robert Ybarra MD Chloride [Moles/Vol] 105 mmol/L Normal 100-109 [facility] Comment on above: Performed By: #### C D:[id number], 7928878, 272900, 916050, 680036, 010261 #### [facility] [address] [place] [address] 67196 Automatic Pattern Edger: Robert Ybarra MD CO2 [Moles/Vol] 18.9 mmol/L Low 21.0-32.0 [facility] Comment on above: Performed By: #### C D:[id number], 6231243, 325374, 203550, 971157, 113028 #### [facility] [address] [place] [address] 75663 Automatic Pattern Edger: Robert Ybarra MD Creatinine [Mass/Vol] 1.6 mg/dL High 0.6-1.0 [facility] Comment on above: Performed By: #### C D:705623013, 0677101, 542037, 909835, 426656, 744438 #### [facility] [address] [place] [address] Automatic Pattern Edger: Robert Ybarra MD Globulin (S) [Mass/Vol] 2.4 g/dL Normal [facility] Comment on above: Performed By: #### C D:[id number], 1387019, 758958, 665877, 803566, 476144 #### [facility] [address] [place] [address] 82235 Automatic Pattern Edger: Robert Ybarra MD Glucose [Mass/Vol] 270 mg/dL High 72-100 [facility] Comment on above: Result Comment: Shireen puncture should occur prior to sulfasalazine administration due to the potential for falsely depressed results. Venipuncture should occur prior to sulfapyridine administration due to the potential falsely elevated results. Baseline assay values before administration of sulfasalazine and sulfapyridine therapy would not be affected. Performed By: #### C D:[id number], 8498676, 127819, 823558, 201931, 217364 #### [facility] [address] [place] [address] 15300 Automatic Pattern Edger: Robert Ybarra MD GOT 61 unit/L High 15-37 [facility] Comment on above: Result Comment: Resu lts may be increased due to hemolysis. Venipuncture should occur prior to sulfasalazine and/or sulfapyridine administration due to the potential for falsely depressed results. Baseline assay values before administration of sulfasalazine and sulfapyridine therapy would not be affected. Performed By: #### C D:[id number], 0578219, 175977, 451523, 221995, 914014 #### [facility] [address] [place] [address] 16054 Automatic Pattern Edger: Robert Ybarra MD GPT 49 unit/L Normal 13-56 [facility] Comment on above: Result Comment: Shireen puncture should occur prior to sulfasalazine and/or sulfapyridine administration due to the potential for falsely depressed results. Baseline assay values before administration of sulfasalazine and sulfapyridine therapy would not be affected. Performed By: #### C D:[id number], 9647806, 262109, 817047, 164801, 893299 #### [facility] [address] [place] [address] Automatic Pattern Edger: Robert Ybarra MD Potassium [Moles/Vol] 5.5 mmol/L High 3.5-5.1 [facility] [facility] Comment on above: Result Comment: Resu lts may be increased due to hemolysis. Performed By: #### C D:[id number], [id number], 602411, 332032, 684019, 619992 #### [facility] [address] [place] [address] Automatic Pattern Edger: Robert Ybarra MD Protein [Mass/Vol] 5.6 g/dL Low 6.0-8.5 [facility] Comment on above: Performed By: #### C D:[id number], [id number], 521995, 191734, 243940, 680270 #### [facility] [address] [place] [address] Automatic Pattern Edger: Robert Ybarra MD Sodium [Moles/Vol] 138 mmol/L Normal 135-145 [facility] Comment on above: Performed By: #### C D:[id number], 0127288, 493747, 719853, 506488, 371818 #### [facility] [address] [place] [address] 75009 Automatic Pattern Edger: Robert Ybarra MD Urea nitrogen [Mass/Vol] 45 mg/dL High 10-20 [facility] Comment on above: Performed By: #### C D:[id number], 1625548, 356759, 504807, 219232, 656310 #### [facility] [place] [address] Automatic Pattern Edger: Robert Ybarra MD CT ABD PELVIS WO [...] by: David Barraza MD 12/03/2021 7:49 PM SALESPERSON [employer] Normal [facility] Comment on above: Order Comment: [...] by: David Barraza MD 12/03/2021 7:37 PM [employer]ESPERSON [employer] Technologist: KATJA GARVIN ND Dictated By: DAVID BARRAZA MD Signed By: DAVID BARRAZA MD Signed Out: 12/03/21 20:37:46 Normal [facility] CT CERVICAL SPINE WO CONTRAS [...] by: David Barraza MD 12/03/2021 7:40 PM [employer]ESPERSON [employer] Workstation: [id number] Technologist: KATJA GARVIN ND Dictated By: DAVID BARRAZA MD Signed By: DAVID BARRAZA MD Signed Out: 12/03/21 20:40:23 Normal [facility] CT CHEST WO CONTRSTon 2021 [...] by: David Barraza MD 12/03/2021 7:46 PM [employer]ESPERSON [employer] Workstation: [id number] Technologist: KATJA GARVIN ND Dictated By: DAVID BARRAZA MD Signed By: DAVID BARRAZA MD Signed Out: 12/03/21 20:46:42 Normal [facility] ED Pre-Arrival Formon 2021 ED Pre-Arrival Form Pre-Arrival Summary Name: ADRYAN-KENDRICK, Current Date: 12/03/2021 19:55:10 EST Gender: Date of : Age: Pre-Arrival Type: EMS ETA: 12/03/2021 20:08:00 EST Primary Care Physician: Presenting Problem: Pre-Arrival User: Laura Smith RN Referring Source: Location: 1 [facility] Emergency Department [address] [place] [address]. [place] [address] Notes: Vital Signs: Doctor Call Back: DNR Status: Miscellaneous Issues: Normal [facility] HEMOon 12-03-2021 DIFF? No Normal [facility] Comment on above: Performed By: #### C D:[id number], [id number], 582372, 562735, 873478, 975847 #### [facility] [address] [place] [address] 84274 Automatic Pattern Edger: Robert Ybarra MD Nucleated RBC 0 /100WBC Normal [facility] Comment on above: Performed By: #### C D:[id number], 2021013, 990749, 342194, 512350, 619294 #### [facility] [address] [place] [address] 88019 Automatic Pattern Edger: Robert Ybarra MD [facility] Actions See Notes Abnormal [facility] Comment on above: Result Comment: Scan Slide. Perform manual diff if needed. Scan Slide. Path Review if Required. SNV Performed By: #### C D:[id number], 7658090, 974964, 248167, 165795, 991299 #### [facility] [address] [place] [address] 02331 Automatic Pattern Edger: Robert Ybarra MD Erythrocyte distribution width (RBC) [Ratio] 14.6 % High 11.5-14.5 [facility] Comment on above: Performed By: #### C D:[id number], 0855981, 778870, 017973, 498997, 757219 #### [facility] [address] [place] [address] 17779 Automatic Pattern Edger: Robert Ybarra MD Hematocrit (Bld) [Volume fraction] 31.2 % Low 36.0-46.0 [facility] Comment on above: Performed By: #### C D:[id number], 0899178, 945037, 251717, 435488, 383980 #### [facility] [address] [place] [address] 28915 Automatic Pattern Edger: Robert Ybarra MD Hemoglobin (Bld) [Mass/Vol] 10.1 g/dL Low 12.0-16.0 [facility] Comment on above: Performed By: #### C D:[id number], 4392863, 585571, 786415, 044381, 764995 #### [facility] [address] [place] [address] 22602 Automatic Pattern Edger: Robert Ybarra MD Instr WBC 22.6 Normal [facility] Comment on above: Performed By: #### C D:[id number], 8066249, 593593, 809432, 787162, 947364 #### [facility] [address] [place] [address] 45965 Automatic Pattern Edger: Robert Ybarra MD MCH (RBC) [Entitic mass] 29.6 pg Normal 27.0-34.0 [facility] Comment on above: Performed By: #### C D:[id number], 8990379, 617449, 230211, 784080, 860005 #### [facility] [address] [place] [address] 21171 Automatic Pattern Edger: Robert Ybarra MD MCHC (RBC) [Mass/Vol] 32.6 g/dL Normal 32.0-37.0 [facility] Comment on above: Performed By: #### C D:[id number], 8701854, 312037, 524744, 857325, 741780 #### [facility] [address] [place] [address] 95984 Automatic Pattern Edger: Robert Ybarra MD MCV (RBC) [Entitic vol] 90.9 fL Normal 80.0-100.[address] [facility] Comment on above: Performed By: #### C D:[id number], 5428318, 640194, 809380, 781087, 427447 #### [facility] [address] [place], [place] [address] Automatic Pattern Edger: Robert Ybarra MD MDW 16.08 Normal 13.98-20.00 [facility] Comment on above: Result Comment: [...] risk of Sepsis. Performed By: #### C D:[id number], 8729083, 297103, 725433, 897143, 097128 #### [facility] [address] [place] [address] 37646 Automatic Pattern Edger: Robert Ybarra MD Platelet 347 x1000 Normal 150-450 [facility] Comment on above: Performed By: #### C D:[id number], 8914126, 282773, 540447, 180990, 045953 #### [facility] [address] [place] [address] 68621 Automatic Pattern Edger: Robert Ybarra MD Platelet mean volume (Bld) [Entitic vol] 6.7 fL Low 7.4-10.4 [facility] Comment on above: Performed By: #### C D:[id number], 3465245, 058409, 438528, 823667, 459414 #### [facility] [address] [place] [address] 98942 Automatic Pattern Edger: Robert Ybarra MD RBC 3.43 x10 Low 4.20-5.40 [facility] Comment on above: Result Comment: Note : RBC morphology is normal unless otherwise stated. Evaluation performed only if differential is requested. Performed By: #### C D:[id number], 9526309, 901461, 977822, 111424, 915162 #### [facility] [address] [place] [address] Automatic Pattern Edger: Robert Ybarra MD WBC 22.6 x10 High 4.5-11.0 [facility] Comment on above: Performed By: #### C D:[id number], 5444362, 974752, 698195, 319693, 746243 #### [facility] [address] [place] [address] Automatic Pattern Edger: Robert Ybarra MD I8on 12-03-2021 Anion gap [Moles/Vol] 16 mmol/L Normal 10-20 [facility] Comment on above: Performed By: #### C D:[id number] ####[facility] [address] [place] [address] Medical Director: Robert Ybarra MD Chloride [Moles/Vol] 104 mmol/L Normal 98-109 [facility] Comment on above: Performed By: #### C D:[id number] ####[facility] [address] [place] [address] Medical Director: Robert Ybarra MD CO2 [Moles/Vol] 21 mmol/L Low 24-32 [facility] Comment on above: Performed By: #### C D:[id number] ####[facility] [address] [place] [address] Medical Director: Robert Ybarra MD Creatinine [Mass/Vol] 1.7 mg/dL High 0.6-1.3 [facility] Comment on above: Performed By: #### C D:[id number] ####[facility] [address] [place] [address] Medical Director: Robert Ybarra MD Glucose [Mass/Vol] 268 mg/dL High 72-110 [facility] Comment on above: Performed By: #### C D:[id number] ####[facility] [address] [place] [address] Medical Director: Robert Ybarra MD Hct, I-Stat 30 %PCV Low 40-54 [facility] Comment on above: Performed By: #### C D:[id number] ####[facility] [address] [place], [place] [address]) [phone] Director: Robert Ybarra MD Hemoglobin (Bld) [Mass/Vol] 10.2 g/dL Low 14.0-18.0 [facility] Comment on above: Result Comment: The calculation of hemoglobin from hematocrit assumes a normal MCHC. Performed By: #### C D:[id number] ####[facility] [address] [place] [address] Medical Director: Robert Ybarra MD Ionized Calcium, I-Stat 1.24 mmol/L Normal 1.12-1.32 [facility] Comment on above: Performed By: #### C D:[id number] ####[facility] [address] [place], [place] [id number]) [phone] Director: Robert Ybarra MD Potassium [Moles/Vol] 5.2 mmol/L High 3.7-5.1 [facility] Comment on above: Performed By: #### C D:[id number] ####[facility] [address] [place] [address] Medical Director: Robert Ybarra MD Sodium [Moles/Vol] 134 mmol/L Low 138-146 [facility] Comment on above: Performed By: #### C D:[id number] ####[facility] [address] [place] [address] Medical Director: Robert Ybarra MD Urea nitrogen [Mass/Vol] 43 mg/dL High 8-26 [facility] Comment on above: Performed By: #### C D:[id number] ####[facility] [address] [place] [address] Medical Director: Robert Ybarra MD PT INRon 12-03-2021 INR Coag (PPP) [Relative time] 1.0 {INR} Normal [facility] Comment on above: Result Comment: INR Reference Range: Normal reference range for INR on patients not on anticoagulant therapy: 0.9-1.1 General therapeutic range for patients on anticoagulant therapy: 2.0-3.5 Performed By: #### C D:[id number], 1939557, 132457, 848678, 414604, 119235 #### [facility] [address] [place] [address] Automatic Pattern Edger: Robert Ybarra MD Protime Patient 11.7 seconds Normal 9.8-13.4 [facility] Comment on above: Performed By: #### C D:[id number], 2013247, 702731, 209974, 907517, 326370 #### [facility] [address] [place] [address] 56822 Automatic Pattern Edger: Robert Ybarra MD TROPONIN HS 0HRon 12-03-2021 Troponin HS 0 Hr 66 pg/mL High 3-54 [facility] Comment on above: Performed By: #### C D:[id number], 1140569, 923547, 475638, 105056, 162752 #### [facility] [address] [place] [address] Automatic Pattern Edger: Robert Ybarra MD XR CHEST PORTABLEon 12-03-19 [...] evidence of acute disease Electronically signed by: Dvaid Barraza MD 12/03/2021 7:26 PM [employer]ESP[employer] Technologist: SR JOSE MARTIN,RL Dictated By: DAVID BARRAZA MD Signed By: DAVID BARRAZA MD Signed Out: 12/03/21 20:26:51 Normal [facility] XR PELVIS APon 12-03-2021 XR [...] by: David Barraza MD 12/03/2021 7:26 PM SALESPERSON [employer] Technologist: SR JOSE MARTIN,RL Dictated By: DAVID BARRAZA MD Signed By: DAVID BARRAZA MD Signed Out: 12/03/21 20:26:00 Normal [facility] pH Venouson 12-03-2021 pH Venous 7.196 Critically abnormal 7.310-7.410 [facility] Comment on above: Result Comment: RESU LTS CALLED WITH READBACK TO DR. SABRINA MOHAN 12/03/2021 21:04:42 EST. Performed By: #### C D:[id number] ####[facility] [address] [place] [address] Medical Director: Robert Ybarra MD XR Shoulder - left 3 Viewson 07-14-2021 IMPRESSION: 1. Advanced glenoid humeral osteoarthritis and chronic rotator cuff arthropathy with increased glenoid humeral joint space narrowing compared to the prior study. Medical Technologist Chief: PHU Transcribe Date/Time: Jul 14 2021 9:03A Dictated by : MIRNA VIZCAINO MD This examination was interpreted and the report reviewed and electronically signed by: MIRNA VIZCAINO MD on Jul 14 2021 9:05AM [facility] DIVISION OF RADIOLOGY * * *Final Report* [...] left upper lung. DIVISION OF RADIOLOGY Provider, [facility] - 07/14/2021 * * *Final [...] space narrowing compared to the prior study. Medical Technologist Chief: PHU Transcribe Date/Time: Jul 14 2021 9:03A Dictated by : MIRNA VIZCAINO MD This examination was interpreted and the report reviewed and electronically signed by: MIRNA VIZCAINO MD on Aug 31 2021 9:05AM [facility] Radiology Study observation (narrative) Mira archibald [facility] XR Shoulder - left 3 ViewsOr dered By: [facility] Provider on 07-14-2021 [facility] Vital Signs Date Time Vital Sign Value Performing Clinician Facility 02-13-2025 13:33-0400 Body temperature 97.7 [degF] Liencece Bang DPM Work Phone: [facility] 02-13-2025 13:33-0400 Diastolic blood pressure 68 mm[Hg] Lien Bang DPM Work Phone: [facility] 02-13-2025 13:33-0400 Heart rate 101 /min Lien Bang DPM Work Phone: [facility] 02-13-2025 13:33-0400 Respiratory rate 20 /min Lien Bang DPM Work Phone: [facility] 02-13-2025 13:33-0400 SaO2% (BldA) [Mass fraction] 98 % Lien Bang DPM Work Phone: [facility] 02-13-2025 13:33-0400 Systolic blood pressure 119 mm[Hg] Lien Bang DPM Work Phone: [facility] 01-16-2025 13:41-0500 Body temperature 97.59 [degF] Liencece Bang DPM Work Phone: [facility] 01-16-2025 13:41-0500 Diastolic blood pressure 73 mm[Hg] Lien Bang DPM Work Phone: [facility] 01-16-2025 13:41-0500 Heart rate 76 /min Lien Bang DPM Work Phone: [facility] 01-16-2025 13:41-0500 SaO2% (BldA) [Mass fraction] 96 % Lien Bang DPM Work Phone: [facility] 01-16-2025 13:41-0500 Systolic blood pressure 132 mm[Hg] Lien Bang DPM Work Phone: [facility] 01-08-2025 13:32-0500 Body temperature 98.1 [degF] Pierce Chi MD Work Phone: [facility] 01-08-2025 13:32-0500 Diastolic blood pressure 74 mm[Hg] Pierce Chi MD Work Phone: [facility] 01-08-2025 13:32-0500 Heart rate 95 /min Pierce Chi MD Work Phone: [facility] 01-08-2025 13:32-0500 SaO2% (BldA) [Mass fraction] 97 % Pierce Chi MD Work Phone: [facility] 01-08-2025 13:32-0500 Systolic blood pressure 165 mm[Hg] Pierce Chi MD Work Phone: [facility] 01-04-2025 08:05-0500 Body height 152.4 cm Tyesha Singleton MD Work Phone: [facility] 01-04-2025 08:05-0500 Body mass index (BMI) [Ratio] 20.24 kg/m2 Tyesha Singleton MD Work Phone: [facility] 01-04-2025 08:05-0500 Body weight 47 kg Tyesha Singleton MD Work Phone: [facility] 01-04-2025 08:05-0500 Diastolic blood pressure 59 mm[Hg] Tyesha Singleton MD Work Phone: [facility] Comment on above: per facility paperwork BP is at baseline 01-04-2025 08:05-0500 Heart rate 84 /min Tyesha Singleton MD Work Phone: [facility] 01-04-2025 08:05-0500 Respiratory rate 16 /min Tyesha Singleton MD Work Phone: [facility] 01-04-2025 08:05-0500 Systolic blood pressure 165 mm[Hg] Tyesha Singleton MD Work Phone: [facility] Comment on above: per facility paperwork BP is at baseline 01-02-2025 08:44-0500 Diastolic blood pressure 72 mm[Hg] Franklin Maria Luisa g MD Work Phone: [facility] Comment on above: recheck 01-02-2025 08:44-0500 Systolic blood pressure 152 mm[Hg] Grupo Mendez MD Work Phone: [facility] Comment on above: recheck 01-02-2025 08:41-0500 Body mass index (BMI) [Ratio] 20.24 kg/m2 Grupo Mendez MD Work Phone: [facility] 01-02-2025 08:41-0500 Body temperature 97.9 [degF] Grupo Mendez MD Work Phone: [facility] 01-02-2025 08:41-0500 Body weight 47 kg Gurpo Mendez MD Work Phone: [facility] 01-02-2025 08:41-0500 Heart rate 85 /min Grupo Mendez MD Work Phone: [facility] 01-02-2025 08:41-0500 Respiratory rate 18 /min Grupo Mendez MD Work Phone: [facility] 01-02-2025 08:41-0500 SaO2% (BldA) [Mass fraction] 96 % Grupo Mendez MD Work Phone: [facility] 12-26-2024 13:07-0500 Body temperature 97.3 [degF] Lien Bang DPM Work Phone: [facility] 12-26-2024 13:07-0500 Diastolic blood pressure 79 mm[Hg] Lien Bang DPM Work Phone: [facility] 12-26-2024 13:07-0500 Heart rate 96 /min Lien Bang DPM Work Phone: [facility] 12-26-2024 13:07-0500 SaO2% (BldA) [Mass fraction] 95 % Lien Bang DPM Work Phone: [facility] 12-26-2024 13:07-0500 Systolic blood pressure 164 mm[Hg] Lien Alex DPTj Work Phone: [facility] 12-02-2024 12:26-0500 SaO2% (BldA) [Mass fraction] 92 % UNKNOWN PROVIDER [facility] Comment on above: Order Comment: Specimen Type: ARTERIAL B LOOD SPECIMENOrdering Facility: [facility] Address: [address] [place] [address] [place] [id number] Performed By: #### A LLBG ####[facility] RESPIRATORYCLIA [id number] [facility] [id number] [place] [id number] 10-29-2024 16:27-0500 Diastolic blood pressure 72 mm[Hg] Ab Benson MD Work Phone: [facility] Comment on above: trupbp 10-29-2024 16:27-0500 Heart rate 66 /min Ab Benson MD Work Phone: [facility] 10-29-2024 16:27-0500 Systolic blood pressure 159 mm[Hg] Ab Benson MD Work Phone: [facility] Comment on above: trupbp 10-29-2024 16:24-0500 Body mass index (BMI) [Ratio] 20.67 kg/m2 Ab Benson MD Work Phone: [facility] 10-29-2024 16:24-0500 Body temperature 99.3 [degF] Ab Benson MD Work Phone: [facility] 10-29-2024 16:24-0500 Body weight 48 kg Ab Benson MD Work Phone: [facility] 10-29-2024 16:24-0500 SaO2% (BldA) [Mass fraction] 97 % Ab Benson MD Work Phone: [facility] 09-17-2024 15:04-0500 Body mass index (BMI) [Ratio] 22.48 kg/m2 Grupo Mendez MD Work Phone: [facility] 09-17-2024 15:04-0500 Body weight 52.2 kg Grupo Mendez MD Work Phone: [facility] 09-17-2024 15:04-0500 Diastolic blood pressure 88 mm[Hg] Grupo ochoa MD Work Phone: [facility] 09-17-2024 15:04-0500 Heart rate 92 /min Grupo Mendez MD Work Phone: [facility] 09-17-2024 15:04-0500 Respiratory rate 16 /min Grupo Mendez MD Work Phone: [facility] 09-17-2024 15:04-0500 SaO2% (BldA) [Mass fraction] 99 % Grupo Mendez MD Work Phone: [facility] 09-17-2024 15:04-0500 Systolic blood pressure 166 mm[Hg] Grupo Mendez MD Work Phone: [facility] 09-13-2024 10:45-0400 Diastolic blood pressure 60 mm[Hg] Migdalia Archibald Work Phone: [facility] 09-13-2024 10:45-0400 Systolic blood pressure 150 mm[Hg] Migdalia Cramer MD Work Phone: [facility] 09-13-2024 10:20-0400 Body mass index (BMI) [Ratio] 22.09 kg/m2 Migdalia Cramer MD Work Phone: [facility] 09-13-2024 10:20-0400 Body weight 51.3 kg Migdalia Cramer MD Work Phone: [facility] 09-13-2024 10:20-0400 Heart rate 98 /min Migdalia Cramer MD Work Phone: [facility] 08-14-2024 10:36-0400 Body mass index (BMI) [Ratio] 22 kg/m2 Migdalia Cramer MD Work Phone: [facility] 08-14-2024 10:36-0400 Body temperature 97.59 [degF] Migdalia Cramer MD Work Phone: [facility] 08-14-2024 10:36-0400 Body weight 51.1 kg Migdalia Cramer MD Work Phone: [facility] 08-14-2024 10:36-0400 Diastolic blood pressure 68 mm[Hg] Migdalia Archibald Work Phone: [facility] 08-14-2024 10:36-0400 Heart rate 91 /min Migdalia Cramer MD Work Phone: [facility] 08-14-2024 10:36-0400 SaO2% (BldA) [Mass fraction] 96 % Migdalia Cramer MD Work Phone: [facility] 08-14-2024 10:36-0400 Systolic blood pressure 125 mm[Hg] Migdalia Cramer MD Work Phone: [facility] 07-12-2024 09:59-0400 Diastolic blood pressure 70 mm[Hg] Migdalia Archibald Work Phone: [facility] 07-12-2024 09:59-0400 Systolic blood pressure 142 mm[Hg] Migdalia Cramer MD Work Phone: [facility] 07-12-2024 09:31-0400 Body mass index (BMI) [Ratio] 21.23 kg/m2 Migdalia Cramer MD Work Phone: [facility] 07-12-2024 09:31-0400 Body weight 49.3 kg Migdalia Cramer MD Work Phone: [facility] 07-12-2024 09:31-0400 Heart rate 80 /min Migdalia Cramer MD Work Phone: [facility] 04-13-2023 15:23-0400 Body temperature 98.01 [degF] Willie Mitsch LEASE ANALYST.BENEFITS SPECIALIST RECRUITER Work Phone: [facility] 04-13-2023 15:23-0400 Body weight 54.07 kg Willie Mitsch LEASE ANALYST.BENEFITS SPECIALIST RECRUITER Work Phone: [facility] 04-13-2023 15:23-0400 Diastolic blood pressure 63 mm[Hg] Willie Mitsch LEASE ANALYST.BENEFITS SPECIALIST RECRUITER Work Phone: [facility] 04-13-2023 15:23-0400 Heart rate 80 /min Willie Mitsch LEASE ANALYST.BENEFITS SPECIALIST RECRUITER Work Phone: [facility] 04-13-2023 15:23-0400 Systolic blood pressure 125 mm[Hg] Willie Mitsch LEASE ANALYST.BENEFITS SPECIALIST RECRUITER Work Phone: [facility] 03-29-2023 15:26-0400 Body weight 53.34 kg Willie Mitsch LEASE ANALYST.BENEFITS SPECIALIST RECRUITER Work Phone: [facility] 03-29-2023 15:26-0400 Diastolic blood pressure 71 mm[Hg] Willie Mitsch LEASE ANALYST.BENEFITS SPECIALIST RECRUITER Work Phone: [facility] 03-29-2023 15:26-0400 Heart rate 80 /min Willie Mitsch LEASE ANALYST.BENEFITS SPECIALIST RECRUITER Work Phone: [facility] 03-29-2023 15:26-0400 Systolic blood pressure 150 mm[Hg] Willie Mitsch LEASE ANALYST.BENEFITS SPECIALIST RECRUITER Work Phone: [facility] 03-17-2023 14:18-0400 Body weight 54.88 kg Willie Mitsch LEASE ANALYST.BENEFITS SPECIALIST RECRUITER Work Phone: [facility] 03-17-2023 14:18-0400 Diastolic blood pressure 67 mm[Hg] Willie Mitsch LEASE ANALYST.BENEFITS SPECIALIST RECRUITER Work Phone: [facility] 03-17-2023 14:18-0400 Heart rate 86 /min Willie Mitsch LEASE ANALYST.BENEFITS SPECIALIST RECRUITER Work Phone: [facility] 03-17-2023 14:18-0400 Systolic blood pressure 146 mm[Hg] Willie Mitsch LEASE ANALYST.BENEFITS SPECIALIST RECRUITER Work Phone: [facility] 10-23-2022 08:59-0500 Body weight 55.48 kg Migdalia Cramer MD Work Phone: [facility] 10-23-2022 08:59-0500 Diastolic blood pressure 82 mm[Hg] Migdalia Archibald Work Phone: [facility] 10-23-2022 08:59-0500 Heart rate 87 /min Migdalia Cramer MD Work Phone: [facility] 10-23-2022 08:59-0500 Systolic blood pressure 145 mm[Hg] Migdalia Cramer MD Work Phone: [facility] 05-08-2022 08:07-0400 Diastolic blood pressure 70 mm[Hg] Migdalia Archibald Work Phone: [facility] 05-08-2022 08:07-0400 Heart rate 70 /min Migdalia Cramer MD Work Phone: [facility] 05-08-2022 08:07-0400 Systolic blood pressure 130 mm[Hg] Migdalia Cramer MD Work Phone: [facility] 05-08-2022 08:05-0400 Body weight 53.48 kg Migdalia Cramer MD Work Phone: [facility] 04-03-2022 08:08-0400 Body temperature 98.01 [degF] Migdalia Cramer MD Work Phone: [facility] 04-03-2022 08:08-0400 Body weight 52.34 kg Migdalia Cramer MD Work Phone: [facility] 04-03-2022 08:08-0400 Diastolic blood pressure 68 mm[Hg] Migdalia Archibald Work Phone: [facility] 04-03-2022 08:08-0400 Heart rate 76 /min Migdalia Cramer MD Work Phone: [facility] 04-03-2022 08:08-0400 Systolic blood pressure 137 mm[Hg] Migdalia Cramer MD Work Phone: [facility] Encounters Encounter Date Encounter Type Care Provider Facility Start: 05-01-2025 End: 05-01-2025 Telephone encounter Tyesha Singleton MD Work Phone: Rheumatology Start: 04-29-2025 ambulatory Mario Depshanell RODAS Facili ty:[facility] Start: 04-26-2025 ambulatory Mario Depshanell RODAS Facili ty:[facility] Start: 04-10-2025 ambulatory Mario RODAS Facili ty:[facility] Start: 04-10-2025 Registered Referred Mario Mak MD [facility] Start: 04-01-2025 End: 04-01-2025 ambulatory Mario Mak MD [facility] Work Phone: Start: 04-01-2025 End: 04-01-2025 Departed Referred Mario Mak MD [facility] Start: 04-01-2025 Registered Referred Mario Mak MD -[facility] Start: 04-01-2025 End: 04-01-2025 ambulatory Mario RODAS Facility:[facility] Start: 03-12-2025 End: 03-12-2025 ambulatory Mario Mak MD [facility] Work Phone: Start: 03-12-2025 End: 03-12-2025 Departed Referred Mario Mak MD [facility] Start: 03-12-2025 Registered Referred Mario Mak MD -[facility] Start: 03-12-2025 End: 03-12-2025 ambulatory Mario RODAS Facility:[facility] Start: 03-04-2025 End: 03-04-2025 ambulatory Mario Mak MD [facility] Work Phone: Start: 03-04-2025 End: 03-04-2025 Departed Referred Mario Mak MD [facility] Start: 03-04-2025 End: 03-04-2025 ambulatory Mario RODAS Facility:[facility] Start: 02-13-2025 End: 02-13-2025 Patient encounter procedure Lien Bang DPTj Work Phone: Plastic Surgery Comment on above: 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) Start: 02-13-2025 End: 02-13-2025 ambulatory LIEN BANG Facility:[facility] Start: 02-11-2025 End: 02-11-2025 Telephone encounter Tyesha Singleton MD Work Phone: Rheumatology Comment on above: Results (Lab results ) Start: 02-04-2025 End: 02-04-2025 ambulatory Mario Mak MD [facility] Work Phone: Start: 02-04-2025 End: 02-04-2025 Departed Referred Mario Mak MD [facility] Start: 02-04-2025 Registered Referred Mario Mak MD [facility] Start: 02-04-2025 End: 02-04-2025 ambulatory Mario RODAS Facility:[facility] Start: 01-16-2025 End: 01-18-2025 Refill Willie Kaur APRN.CNP Work Phone: Family Medicine Comment on above: Refill Request Start: 01-16-2025 End: 01-16-2025 ambulatory LIEN BANG Facility:[facility] Start: 01-16-2025 End: 01-16-2025 Patient encounter procedure Lien Bang DPTj Work Phone: Plastic Surgery Comment on above: Pressure injury of r ight ankle, stage 3 (HCC) (Primary Dx) Start: 01-15-2025 End: 01-15-2025 ambulatory Mario Mak MD [facility] Work Phone: Start: 01-15-2025 End: 01-15-2025 Departed Referred Mario Mak MD [facility] Start: 01-15-2025 End: 01-15-2025 ambulatory Mario RODAS Facility:[facility] Start: 01-08-2025 End: 01-08-2025 Patient encounter [...] Start: 01-08-2025 End: 01-08-2025 ambulatory UNKNOWN PROVIDER Facility:[facility] Start: 01-07-2025 ambulatory Marioscottie Coburn ty:[facility] Start: 01-07-2025 Registered Referred Mario Mak MD -[facility] Start: 01-04-2025 End: 01-04-2025 ambulatory MIGDALIA Dragan SIGEL Facility:[facility] Start: 01-04-2025 End: 01-04-2025 Office outpatient new 45 minutes Tyesha Singleton MD Work Phone: Rheumatology Comment on above: Pseudogout (Primary Dx); Ankle swelling, right; Medication monitoring encounter Start: 01-03-2025 End: 01-10-2025 Telephone encounter Migdalia Cramer MD Work Phone: [address] [place] [address] Comment on above: Patient Update Start: 01-02-2025 End: 01-02-2025 Telephone encounter Aditi Alvaro ALLEN Work Phone: Hematology/Oncology Comment on above: Distress Assessment Start: 01-02-2025 End: 01-02-2025 ambulatory MIGDALIA CRAMER Facility:[facility] Start: 01-02-2025 End: 01-02-2025 ambulatory Grupo Mendez MD Work Phone: Hematology/Oncology Comment on above: Leukocytosis, unspec ified type (Primary Dx); Normocytic anemia; Vitamin B6 deficiency; Cellulitis of right ankle Start: 01-02-2025 End: 01-02-2025 Patient encounter procedure Grupo Mendez MD Work Phone: Hematology/Oncology Start: 2024 ambulatory Marioscottie Coburn ty:[facility] Start: 2024 Registered Referred Mario Mak MD -[facility] Start: 12-26-2024 End: 12-26-2024 Telephone encounter Migdalia Cramer MD Work Phone: Internal Medicine [place] Comment on above: rehab discharge conc erns Start: 12-26-2024 End: 12-26-2024 Patient encounter procedure Lien Bang DPM Work Phone: Plastic Surgery Comment on above: 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 Comment on above: Refill Request Start: 12-24-2024 ambulatory Mario Coburn ty:[facility] Start: 12-24-2024 Registered Referred Mario Mak MD -[facility] Start: 12-18-2024 End: 12-18-2024 E-mail encounter from caregiver Willie Kaur APRN.CNP Work Phone: [facility] Start: 12-18-2024 End: 12-18-2024 Follow-up encounter Willie Kaur APRN.BENEFITS SPECIALIST RECRUITER Work Phone: [facility] Comment on above: [facility] follow up Start: 12-17-2024 ambulatory Mario Coburn ty:[facility] Start: 12-17-2024 Registered Referred Mario Mak MD -[facility] Start: 12-12-2024 End: 12-12-2024 Evaluation and management of inpatient DANIEL NATHSenia CASTILLO Facility:[facility] Start: 12-10-2024 End: 12-10-2024 Evaluation and management of inpatient DANIEL MUROSenia CASTILLO Facility:[facility] Start: 11-29-2024 End: 01-08-2025 Telephone encounter [...] Start: 11-23-2024 End: 11-27-2024 Refill Willie Kaur APRN.BENEFITS SPECIALIST RECRUITER Work Phone: [facility] Comment on above: Refill Request Start: 11-21-2024 End: 12-12-2024 Evaluation and management of inpatient SHAUN SUAREZ Facility:[facility] Start: 11-21-2024 End: 11-22-2024 ambulatory Migdalia Cramer MD Work Phone: [facility] Comment on above: MRi and tests Start: 11-19-2024 End: 11-19-2024 ambulatory MIGDALIA CRAMER Facility:[facility] Start: 11-19-2024 End: 11-19-2024 ambulatory MIGDALIA CRAMER Facility:[facility] Start: 11-19-2024 End: 11-19-2024 Subsequent hospital visit by physician [facility] (I-Stat/3t) MRI [facility] Comment on above: Chronic pain of righ t ankle [M25.571, G89.29] Start: 11-06-2024 End: 11-06-2024 ambulatory Grupo Mendez MD Work Phone: Hematology/Oncology Comment on above: [employer] up coming a ppt Start: 11-06-2024 End: 12-11-2024 Telephone encounter Willie Kaur APRN.BENEFITS SPECIALIST RECRUITER Work Phone: [facility] Comment on above: Appointment (Rheumat ology) Start: 11-05-2024 End: 11-05-2024 Telephone encounter Grupo Mendez MD Work Phone: Hematology/Oncology Comment on above: Results Start: 11-01-2024 End: 11-01-2024 ambulatory MIGDALIA CRAMER Facility:[facility] Start: 11-01-2024 End: 11-01-2024 ambulatory MIGDALIA CRAMER Facility:[facility] Start: 11-01-2024 End: 11-01-2024 Patient encounter procedure Simone Kevin MD Work Phone: Orthopaedic Surgery [facility] Comment on above: Right ankle swelling (Primary Dx); Chronic pain of right ankle Start: 11-01-2024 End: 11-01-2024 Subsequent hospital visit by physician Max [facility] 1 Xray [facility] Comment on above: Right ankle swelling [M25.471] Start: 10-29-2024 End: 10-29-2024 ambulatory MIGDALIA CRAMER Facility:[facility] Start: 10-29-2024 End: 10-29-2024 Office outpatient visit 15 minutes Ab Benson MD Work Phone: Family Medicine Comment on above: Chronic pain of righ t ankle (Primary Dx) Start: 10-11-2024 End: 10-12-2024 Refill Willie Kaur APRN.CNP Work Phone: Family Medicine Comment on above: Refill Request Start: 09-20-2024 End: 09-20-2024 ambulatory MIGDALIA CRAMER Facility:[facility] Start: 09-20-2024 End: 09-20-2024 Patient encounter procedure Simone Kevin MD Work Phone: Orthopaedic Surgery [facility] Comment on above: Right ankle swelling ; Closed nondisplaced fracture of right calcaneus, unspecified portion of calcaneus, initial encounter Start: 09-19-2024 End: 09-19-2024 ambulatory MIGDALIA CRAMER Facility:[facility] Start: 09-19-2024 End: 09-19-2024 Subsequent hospital visit by physician Mxa [facility] Adryan Work Phone: Radiology Comment on above: Pain in joint involv ing right ankle and foot [M25.571] Start: 09-18-2024 End: 09-18-2024 Telephone encounter Grupo Mendez MD Work Phone: Hematology/Oncology Comment on above: Results (Suspicion f or calcaneal bone fracture ) Start: 09-18-2024 ambulatory GRUPO MENDEZ Facili :[facility] Start: 09-18-2024 End: 09-18-2024 Subsequent hospital visit by physician [facility] Work Phone: Radiology Comment on above: Right ankle swelling [M25.471] Start: 09-17-2024 End: 09-18-2024 ambulatory MIGDALIA CRAMER Facility:[facility] Start: 09-17-2024 End: 09-17-2024 Subsequent hospital visit by physician Max [facility] Adryan Work Phone: Radiology Comment on [...] Start: 09-13-2024 End: 09-13-2024 ambulatory MIGDALIA CRAMER Facility:[facility] Start: 09-13-2024 End: 09-13-2024 Patient encounter procedure [...] unspecified type Start: 09-04-2024 End: 09-05-2024 ambulatory iMgdalia Cramer MD Work Phone: Family Medicine Comment on above: Lab results and next steps Start: 09-04-2024 End: 09-05-2024 E-mail encounter from caregiver Migdalia Cramer MD Work Phone: Family Medicine Start: 08-21-2024 End: 08-24-2024 Refill Migdalia Cramer MD Work Phone: Family [facility] Comment on above: Refill Request Results Start: 08-14-2024 End: 08-14-2024 ambulatory MIGDALIA CRAMER Facility:[facility] Start: 08-14-2024 End: 08-14-2024 ambulatory MIGDALIA CRAMER Facility:[facility] Start: 08-14-2024 End: 08-14-2024 Office outpatient visit 25 minutes Migdalia Cramer MD Work Phone: Family [facility] Comment on above: Generalized weakness (Primary Dx); Headache, unspecified headache type; Leukocytosis, unspecified type; CKD stage 3 due to type 2 diabetes mellitus (HCC); Normocytic anemia; Essential hypertension; Insomnia; Arthralgia, unspecified joint Start: 08-13-2024 End: 08-13-2024 Emergency department patient visit MARIUSZ ROMO Facility:[facility] Start: 08-13-2024 End: 08-13-2024 ambulatory Migdalia Cramer MD Work Phone: Family [facility] Comment on above: Fatigue Start: 08-09-2024 End: 08-10-2024 Refill Willie Kaur APRN.CNP Work Phone: [facility] Comment on above: Refill Request Start: 07-19-2024 End: 07-19-2024 Refill Migdalia Cramer MD Work Phone: [facility] Comment on above: Refill Request Start: 07-12-2024 End: 07-12-2024 ambulatory MIGDALIA CRAMER Facility:[facility] Start: 07-12-2024 End: 07-12-2024 Office outpatient visit 25 minutes Migdalia Cramer MD Work Phone: [facility] Comment on above: Essential hypertensi on (Primary [...] Start: 07-11-2024 End: 07-11-2024 ambulatory MIGDALIA CRAMER Facility:[facility] Start: 05-23-2024 Refill Willie Mitsch LEASE ANALYST.BENEFITS SPECIALIST RECRUITER Work Phone: [facility] Comment on above: Refill Request Start: 04-25-2024 Refill Willie Mitsch LEASE ANALYST.BENEFITS SPECIALIST RECRUITER Work Phone: [facility] Comment on above: Refill Request Start: 04-16-2024 Telephone encounter Migdalia hidalgo MD Work Phone: [facility] Comment on above: Medication Problem Start: 03-21-2024 End: 03-21-2024 Patient encounter procedure Gertrudis Gordon Fly DO Work Phone: Ophthalmology Comment on above: Type 2 diabetes karen itus without retinopathy (HCC) (Primary Dx); Pseudophakia Start: 03-13-2024 ambulatory Lien Rutledge [facility] [place] Start: 03-13-2024 Patient encounter procedure Lien Rutledge MA [facility] [place] Comment on above: Population Health Na vigation Outreach ([facility]/) Start: 02-28-2024 Refill Migdalia gordon MD Work Phone: [facility] Start: 02-01-2024 Refill Ok [place] Work Phone: [facility] Comment on above: Refill Request Start: 01-31-2024 Refill Ok [place] Work Phone: [facility] Comment on above: Refill Request Start: 01-23-2024 Refill Migdalia gordon MD Work Phone: [facility] Comment on above: Refill Request Start: 01-11-2024 Refill Migdalia gordon MD Work Phone: [facility] Start: 10-14-2023 Refill Migdalia gordon MD Work Phone: [facility] Comment on above: Refill Request Start: 09-05-2023 Refill Willie Mitsch LEASE ANALYST.BENEFITS SPECIALIST RECRUITER Work Phone: Family Medicine Comment on above: [...] Start: 04-28-2023 ambulatory No Pcp Christelle [place] [employer] [place] Start: 04-19-2023 Telephone encounter Migdalia hidalgo MD Work Phone: Family Medicine Comment on above: Appointment (Re: [facility] oming appointment) Patient Question (Re : Blood Glucose Monitor) Start: 04-13-2023 End: 04-13-2023 Patient encounter procedure Willie Kaur APRN.BENEFITS SPECIALIST RECRUITER Work Phone: Family Medicine Comment on above: Diabetes mellitus, n on-insulin dependent (NIDDM or type II) (HCC) (Primary Dx); CKD stage 3 due to type 2 diabetes mellitus (HCC) Start: 03-29-2023 End: 03-29-2023 Patient encounter procedure Willie Kaur APRN.BENEFITS SPECIALIST RECRUITER Work Phone: Family Medicine Comment on above: [...] End: 03-17-2023 Patient encounter procedure Willie Mitsch LEASE ANALYST.BENEFITS SPECIALIST RECRUITER Work Phone: Family Medicine Comment on above: Pain in both hands ( Primary Dx); Pain in both wrists; Leukocytosis, unspecified type; Type 2 diabetes mellitus with stage 3 chronic kidney disease, without long-term current use of insulin, unspecified whether stage 3a or 3b CKD (HCC); Muscular deconditioning Start: 03-10-2023 Patient Outreach Lien jensen RN Work Phone: Nurse Care Manager Management Comment on above: Transition Of Care ( [facility], initial outreach) Start: 02-22-2023 Refill Willie Mitsch LEASE ANALYST.BENEFITS SPECIALIST RECRUITER Work Phone: Family Medicine [place] Comment on above: Refill Request Start: 01-19-2023 Telephone encounter Migdalia hidalgo MD Work Phone: Family Medicine Comment on above: Refill Request Start: 12-28-2022 Refill Willie Mitsch LEASE ANALYST.BENEFITS SPECIALIST RECRUITER Work Phone: Family [facility] Comment on above: Refill Request Start: 10-23-2022 End: 10-23-2022 Patient encounter procedure Migdalia Cramer MD Work Phone: Family [facility] Comment on above: Diabetes mellitus, n on-insulin [...] Refill Request Start: 08-17-2022 Refill Willie Mitsch LEASE ANALYST.BENEFITS SPECIALIST RECRUITER Work Phone: Family [facility] Comment on above: Refill Request (SEE RX [...] Start: 04-27-2022 ambulatory Katia Farooq RN IN [facility] Start: 04-27-2022 Follow-up encounter Katia love RN Nurse Care Manager Management Comment on above: Transition Of Care ( TCM follow up) Start: 04-26-2022 Telephone encounter Migdalia hidalgo MD Work Phone: Family Medicine [place] Comment on above: Patient Question Start: 04-08-2022 [...] 03-30-2022 ambulatory Migdalia gordon MD Work Phone: [facility] Comment on above: Pain; UTI Start: 03-29-2022 Telephone encounter Willie Christos norman APRN.BENEFITS SPECIALIST RECRUITER Work Phone: [facility] Comment on above: Appointment (please make sure she schedules hospital follow up) Start: 03-23-2022 Refill Migdalia gordon MD Work Phone: Internal Medicine Comment on above: Refill Request Start: 03-19-2022 Refill Williedavid Kaur APRN.BENEFITS SPECIALIST RECRUITER Work Phone: [facility] Comment on above: Refill Request Start: 02-25-2022 Telephone encounter Migdalia hidalgo MD Work Phone: [facility] Comment on above: Medication Request Start: 12-25-2021 Refill Migdalia gordon MD Work Phone: [facility] Comment on above: Refill Request Start: 07-14-2021 End: 07-14-2021 Subsequent hospital visit by physician Xr [facility] Work Phone: Radiology Comment on above: Pain [...] Comment: Speci men Type: BLOOD SPECIMENOrdering Facility: [facility] Address: [address] [place] [address] Performed By: #### T SCR ####CC MAIN BLOOD BANKCLIA [id number] [place] [address] [place] Start: 2024 Measurement [...] Author Start: 09-13-2025 Anxiety Screening Anxiety Screening [facility] Start: 09-13-2025 Covid-19 Vaccine ( season) Covid-19 Vaccine ( season) [facility] Comment on above: Postponed from 07/15/2024 (Declined at t his time) Start: 09-13-2025 Depression Screening Depression Screening [facility] Start: 09-13-2025 Diabetic foot examination Diabetic Foot Exam [facility] Start: 09-13-2025 RSV Vaccine (1 - 1-dose 75+ series) RSV Vaccine (1 - 1-dose 75+ series) [facility] Comment on above: Postponed from 2010 (Declined at t his time) Start: 09-13-2025 Shingrix Vaccine (2 of 3) Shingrix Vaccine (2 of 3) [facility] Comment on above: Postponed from 03/19/2015 (Declined at t his time) Start: 09-13-2025 Urine microalbumin profile DTaP,Tdap,Td Vaccine (1 - Tdap) [facility] Comment on above: Postponed from 1954 (Declined at t his time) Start: 08-14-2025 Hepatitis B screening Urine Albumin:Creatinine Ratio [facility] Start: 07-15-2025 Influenza vaccination Influenza Vaccine (Season Ended) [facility] Start: 07-11-2025 Hepatitis B surface antibody level LDL Cholesterol [facility] Start: 07-05-2025 End: 07-05-2025 Patient encounter procedure Rheumatology Comment on above: Return in about 6 months (around 07/04/20 25) for Pseudogout 20m. F/u 6 months Start: 05-13-2025 Influenza vaccination Influenza Vaccine (#1) [place] [facility] [place] Comment on above: Postponed from 07/15/2024 (Declined at t his time) Start: 03-21-2025 Glaucoma screening Dilated Retinal Exam [facility] Start: 03-12-2025 End: 03-12-2025 Patient encounter procedure 03/12/2025 9:00 AM EDT Office Visit Family Medicine [id number] [place] [id number] [place] [id number] [place] [id number] 6 month follow up Family Medicine Comment on above: 6 month follow up Start: 02-19-2025 Hemoglobin A1c measurement HbA1C [facility] Start: 02-13-2025 End: 05-15-2025 CBC W Auto Differential panel - Blood COMPLETE BLOOD COUNT AND DIFFERENTIAL Lab Routine Normocytic anemia Expected: 02/13/2025, Expires: 05/15/2025 [facility] Work Phone: Comment on above: Expected: 02/13/2025, Expires: Start: 02-13-2025 End: 05-15-2025 Comprehensive metabolic 2000 panel - Serum or Plasma COMPREHENSIVE METABOLIC PANEL Lab Routine Normocytic anemia Expected: 02/13/2025, Expires: 05/15/2025 [facility] Comment on above: Expected: 02/13/2025, Expires: Start: 02-13-2025 End: 05-15-2025 Pyridoxine [Mass/volume] in Serum or Plasma VITAMIN B6/PYRIDOXIN Lab Routine Normocytic anemia Vitamin B6 deficiency Expected: 02/13/2025, Expires: 05/15/2025 [facility] Comment on above: Expected: 02/13/2025, Expires: Start: 02-13-2025 End: 02-13-2025 Patient encounter procedure 02/13/2025 1:30 PM EDT Office Visit Plastic Surgery [address] [place] [address] Lien Bang, DPM [address], [address] [place] [address] appt confirmed with Nj at [facility] Right ankle-rescheduled with Malia at [facility] 01-28-2025 10:22am-KT Plastic Surgery Comment on above: appt confirmed with [facility] at [facility] [place] Right ankle-rescheduled with Malia at [facility] 01-28-2025 10:22am-KT Start: 02-11-2025 End: 09-13-2025 Basic metabolic 2000 panel - Serum or Plasma BASIC METABOLIC PANEL Lab Routine Essential hypertension Hypertensive kidney disease with stage 3b chronic kidney disease (HCC) CKD stage 3 due to type 2 diabetes mellitus (HCC) Diabetes mellitus, non-insulin dependent (NIDDM or type II) (HCC) Expected: 02/11/2025, Expires: 09/13/2025 [facility] Work Phone: Comment on above: Expected: 02/11/2025, Expires: Start: 02-11-2025 End: 05-13-2025 CBC panel - Blood by Automated count COMPLETE BLOOD COUNT Lab Routine Iron deficiency anemia, unspecified iron deficiency anemia type Leukocytosis, unspecified type Expected: 02/11/2025, Expires: 05/13/2025 [facility] Comment on above: Expected: 02/11/2025, Expires: Start: 02-11-2025 End: 09-13-2025 Hemoglobin A1c in Blood HEMOGLOBIN A1C Lab Routine Diabetes mellitus, non-insulin dependent (NIDDM or type II) (HCC) Expected: 02/11/2025, Expires: 09/13/2025 [facility] Comment on above: Expected: 02/11/2025, Expires: Start: 02-11-2025 End: 09-13-2025 LIPID PANEL, NONFASTING LIPID PANEL, NONFASTING Lab Routine Hyperlipidemia associated with type 2 diabetes mellitus (HCC) (HCC) Diabetes mellitus, non-insulin dependent (NIDDM or type II) (HCC) Expected: 02/11/2025, Expires: 09/13/2025 [facility] Comment on above: Expected: 02/11/2025, Expires: Start: 01-30-2025 End: 01-30-2025 Patient encounter procedure 01/30/2025 1:30 PM EDT Office Visit Plastic Surgery [address] [place] [address] Lien Bang DPM [address], [address] [place] [address] [phone] Right ankle Plastic Surgery Comment on above: Right ankle Start: 01-16-2025 End: 01-16-2025 Patient encounter procedure 01/16/2025 1:00 PM EST Office Visit Plastic Surgery [address] [place] [address] Lien Bang DPM [address], [address] [place] [address] [phone] Right ankle Plastic Surgery Comment on above: Right ankle Start: 01-08-2025 End: 01-08-2025 Patient encounter procedure Plastic Surgery Comment on above: new to us f/u abx from hospital visit mark carranza from [facility] [phone] f/u abx from hospita l visit patient from [facility] [phone] confirmed with [place] at [facility] 01/04/2021 f/u abx from hospital visit patient from [facility] [phone] Start: 01-04-2025 End: 01-04-2025 Patient encounter procedure 01/04/2025 8:00 AM EST Office Visit Rheumatology [address] [facility] [place], [place] [id number] Tyesha Singleton MD [address] [place] [address] [address] mcghee Rheumatology Comment on above: Inflammatory Arthritis per dr mcghee Start: 01-02-2025 End: 01-02-2025 Follow-up encounter 01/02/2025 8:30 AM EST Visit (SP) Office Hematology/Oncology [address] [place] [address] [place] [address] [place] [address] Follow up Hematology/Oncology Comment on above: Follow up Start: 12-26-2024 End: 12-26-2024 Patient encounter procedure 12/26/2024 1:00 PM EST Office Visit Plastic Surgery [address] [place] [address] Lien Bang DPM [address] [facility], [address] [place] [phone] new to us right ankle -f/u from [...] EST - 11/27/2024 3:53 PM EST Surgery [facility] Surgery [address] [place] [address] Keerthi Plata, ANIRUDH [address] [facility], [address] [place] [address] INCISION AND DRAINAGE ABSCESS EXTREMITY LOWER SIMPLE OR SINGLE [facility] Surgery Comment on above: INCISION AND [...] 9:10 AM EST Visit (SP) Office Hematology/Oncology [address] [place] [address] [place] [address] [place] [address] folow up Iron Hematology/Oncology Comment on above: folow up Iron Start: 11-21-2024 End: 02-20-2025 CBC W Auto Differential panel - Blood COMPLETE BLOOD COUNT AND DIFFERENTIAL Lab Routine Normocytic anemia Leukocytosis, unspecified type Expected: 11/21/2024, Expires: 02/20/2025 [facility] Work Phone: Comment on above: Expected: 11/21/2024, Expires: Start: 11-21-2024 End: 02-20-2025 Ferritin [Mass/volume] in Serum or Plasma FERRITIN Lab Routine Normocytic anemia Expected: 11/21/2024, Expires: 02/20/2025 [facility] Comment on above: Expected: 11/21/2024, Expires: Start: 11-21-2024 End: 02-20-2025 Iron and Iron binding capacity panel - Serum or Plasma IRON AND TIBC Lab Routine Normocytic anemia Expected: 11/21/2024, Expires: 02/20/2025 [facility] Comment on above: Expected: 11/21/2024, Expires: Start: 11-21-2024 End: 02-20-2025 Zinc [Mass/volume] in Serum or Plasma ZINC BLD Lab Routine Normocytic anemia Expected: 11/21/2024, Expires: 02/20/2025 [facility] Comment on above: Expected: 11/21/2024, Expires: Start: 11-21-2024 End: 11-21-2024 ambulatory 11/21/2024 9:15 AM EST Results Only [facility] [address] [place] [address] lab [facility] Comment on above: lab Start: 11-19-2024 End: 11-19-2024 Patient encounter procedure 11/19/2024 9:30 AM EST Appointment MRI [facility] [address] [place] [address] Chronic pain of right ankle [M25.571, G89.29] MRI [facility] Comment on above: Chronic pain of right ankle [M25.571, G8 9.29] Start: 11-14-2024 Advance Directive Discussion Advance Directive Discussion [facility] Start: 11-14-2024 Hemoglobin A1c measurement HbA1C [facility] Start: 11-14-2024 Medicare Advantage Annual Wellness Visit Medicare Advantage Annual Wellness Visit [facility] Start: 11-01-2024 End: 01-31-2025 C reactive protein [Mass/volume] in Serum or Plasma [facility] Comment on above: Expected: 11/01/2024, Expires: Start: 11-01-2024 End: 01-31-2025 Erythrocyte sedimentation rate [facility] Comment on above: Expected: 11/01/2024, Expires: Start: 10-11-2024 Hemoglobin A1c measurement HbA1C [facility] Start: 09-20-2024 End: 09-20-2024 Patient encounter procedure 09/20/2024 9:10 AM EST Office Visit Orthopaedic Surgery [facility] [address] [place] [address] Simone Kevin MD [address] [place] [address] Right ankle swelling [M25.471]; Closed nondisplaced fracture of right calcaneus, unspecified portion of calcaneus, initial encounter [S92.001A] Orthopaedic Surgery [facility] Comment on above: Right ankle swelling [M25.471]; Closed n ondisplaced fracture of right calcaneus, unspecified portion of calcaneus, initial encounter [S92.001A] Start: 09-18-2024 End: 09-18-2024 Patient encounter procedure 09/18/2024 8:15 AM EST Appointment Radiology [address] [place] [address] Right ankle swelling [M25.471] Radiology Comment on above: Right ankle swelling [M25.471] Start: 09-17-2024 End: 09-17-2024 FQHC visit new patient 09/17/2024 3:10 PM EST Visit (SP) Office Hematology/Oncology [address] [place] [address] [place] [address] [place] [address] New patient Hematology/Oncology Comment on above: New patient Start: 09-17-2024 End: 12-17-2024 Pyridoxine [Mass/volume] in Serum or Plasma [facility] Work Phone: Comment on above: Expected: 09/17/2024, Expires: Start: 09-13-2024 End: 09-13-2024 Patient encounter procedure 09/13/2024 10:00 AM EDT Office Visit Family Medicine [address] [place], [place] [id number] Migdalia Cramer MD [address] [place] [address] AWV Due Family Medicine Comment on above: AWV Due Start: 09-11-2024 End: 12-11-2024 Basic metabolic 2000 panel - Serum or Plasma BASIC METABOLIC PANEL Lab Routine CKD stage 3 due to type 2 diabetes mellitus (HCC) Hypertensive kidney disease with stage 3b chronic kidney disease (HCC) Essential hypertension Diabetes mellitus, non-insulin dependent (NIDDM or type II) (HCC) Expected: 09/11/2024, Expires: 12/11/2024 [facility] Work Phone: Comment on above: Expected: 09/11/2024, Expires: Start: 09-11-2024 End: 12-11-2024 CBC panel - Blood by Automated count COMPLETE BLOOD COUNT Lab Routine Iron deficiency anemia, unspecified iron deficiency anemia type Expected: 09/11/2024, Expires: 12/11/2024 [facility] Comment on above: Expected: 09/11/2024, Expires: Start: 09-11-2024 End: 12-11-2024 Hemoglobin A1c in Blood HEMOGLOBIN A1C Lab Routine Diabetes mellitus, non-insulin dependent (NIDDM or type II) (HCC) Expected: 09/11/2024, Expires: 12/11/2024 [facility] Comment on above: Expected: 09/11/2024, Expires: Start: 09-11-2024 End: 12-11-2024 Microalbumin/Creatinine [Mass Ratio] in Urine ALBUMIN/CREATININE RATIO, URINE Lab Routine CKD stage 3 due to type 2 diabetes mellitus (HCC) Essential hypertension Diabetes mellitus, non-insulin dependent (NIDDM or type II) (HCC) Expected: 09/11/2024, Expires: 12/11/2024 [facility] Comment on above: Expected: 09/11/2024, Expires: [...] deficiency anemia type Expected: 09/11/2024, Expires: 12/11/2024 [facility] Comment on above: Expected: 09/11/2024, Expires: Start: 08-14-2024 End: 11-13-2024 Bacteria identified in Urine by Culture [facility] Comment on above: Expected: 08/14/2024, Expires: Start: 08-14-2024 End: 11-13-2024 C reactive protein [Mass/volume] in Serum or Plasma [facility] Comment on above: Expected: 08/14/2024, Expires: Start: 08-14-2024 End: 11-13-2024 CBC W Ordered Manual Differential panel - Blood [facility] Comment on above: Expected: 08/14/2024, Expires: Start: 08-14-2024 End: 11-13-2024 Erythrocyte sedimentation rate [facility] Work Phone: Comment on above: Expected: 08/14/2024, Expires: Start: 08-14-2024 End: 11-13-2024 PROTEIN ELECT RND UR W/BANNERP [facility] Comment on above: Expected: 08/14/2024, Expires: Start: 08-14-2024 End: 11-13-2024 PROTEIN ELECTROPHORESIS SERUM W/[facility] Comment on above: Expected: 08/14/2024, Expires: Start: 08-14-2024 End: 11-13-2024 URINALYSIS, DIPSTICK ONLY [facility] Comment on above: Expected: 08/14/2024, Expires: Start: 08-14-2024 End: 08-14-2024 Patient encounter procedure 08/14/2024 10:40 AM EDT Office Visit Family Medicine [address] [place], [place] [phone] Migdalia [place]ramer [place] [id number] [place], [place] [id number] Elevated white count and dehydration/fatigue Family Medicine Comment on above: Elevated white count and dehydration/fat igue Start: 07-15-2024 Covid-19 Vaccine ( season) Covid-19 Vaccine () [facility] Start: 07-15-2024 Covid-19 Vaccine ( season) Covid-19 Vaccine ( season) [facility] Start: 07-15-2024 Influenza vaccination [facility] Start: 07-12-2024 End: 07-12-2024 Patient encounter procedure 07/12/2024 9:40 AM EDT Office Visit Family Medicine [address] [place] [address] [place] [address] [place] [address] Follow Up Family Medicine Comment on above: Follow Up Start: 04-12-2024 End: 04-12-2024 Patient encounter procedure 04/12/2024 11:30 AM EDT Office Visit Rheumatology [address] [place] [phone] [place] [address] [phone] HFU pseudogout Rheumatology Comment on above: HFU pseudogout Start: 03-21-2024 End: 03-21-2024 Patient encounter procedure 03/21/2024 10:45 AM EDT Office Visit [facility] Ophthalmology [id number] [place], [place] [phone] Gertrudis Bill, DO [address] [place] [address] Dilated Retinal Exam Ophthalmology Comment on above: Dilated Retinal Exam Start: 03-13-2024 End: 09-13-2024 Basic metabolic 2000 panel - Serum or Plasma BASIC METABOLIC PANEL Lab Routine Diabetes mellitus, non-insulin dependent (NIDDM or type II) (HCC) Hyperlipidemia associated with type 2 diabetes mellitus (HCC) (HCC) Essential hypertension Expected: 03/13/2024, Expires: 09/13/2024 [facility] Comment on above: Expected: 03/13/2024, Expires: 4 Start: 03-13-2024 End: 09-13-2024 Hemoglobin A1c in Blood HEMOGLOBIN A1C Lab Routine Diabetes mellitus, non-insulin dependent (NIDDM or type II) (HCC) Expected: 03/13/2024, Expires: 09/13/2024 [facility] Work Phone: Comment on above: Expected: 03/13/2024, Expires: 4 Start: 03-13-2024 End: 09-13-2024 LIPID PANEL, NONFASTING LIPID PANEL, NONFASTING Lab Routine Hyperlipidemia associated with type 2 diabetes mellitus (HCC) (HCC) Expected: 03/13/2024, Expires: 09/13/2024 [facility] Comment on above: Expected: 03/13/2024, Expires: Start: 03-13-2024 End: 09-13-2024 Microalbumin/Creatinine [Mass Ratio] in Urine ALBUMIN/CREATININE RATIO, URINE Lab Routine Diabetes mellitus, non-insulin dependent (NIDDM or type II) (HCC) Expected: 03/13/2024, Expires: 09/13/2024 [facility] Comment on above: Expected: 03/13/2024, Expires: Start: 11-14-2023 Advance Directive Discussion Advance Directive Discussion [facility] Start: 11-14-2023 Behavioral Health Screening Behavioral Health Screening [facility] Start: 11-14-2023 Depression Assessment Depression Assessment [facility] Start: 11-12-2023 Hemoglobin A1c measurement HbA1C [facility] Start: 11-12-2023 Hemoglobin A1c/Hemoglobin.total in Blood HBA1C [facility] Start: 10-23-2023 3 comp foot exam completed DIABETIC FOOT EXAM [facility] Start: 10-23-2023 Diabetic foot examination Diabetic Foot Exam [facility] Start: 10-21-2023 Hepatitis B screening URINE ALBUMIN:CREATININE RATIO [facility] Start: 10-21-2023 Hepatitis B surface antibody level LDL CHOLESTEROL [facility] Start: 09-07-2023 Hemoglobin A1c/Hemoglobin.total in Blood HBA1C [facility] Start: 07-15-2023 Covid-19 Vaccine ( season) Covid-19 Vaccine ( season) [facility] Start: 07-15-2023 Influenza vaccination [facility] Start: 06-17-2023 End: 08-17-2023 Basic metabolic 2000 panel - Serum or Plasma BASIC METABOLIC PNL Lab Routine Type 2 diabetes mellitus with stage 3 chronic kidney disease, without long-term current use of insulin, unspecified whether stage 3a or 3b CKD (HCC) Expected: 06/17/2023 (Approximate), Expires: 08/17/2023 [facility] Work Phone: Comment on above: Expected: 06/17/2023 (Approximate), Expi res: 08/17/2023 Start: 06-17-2023 End: 08-17-2023 Hemoglobin A1c in Blood HGB A1C Lab Routine Type 2 diabetes mellitus with stage 3 chronic kidney disease, without long-term current use of insulin, unspecified whether stage 3a or 3b CKD (HCC) Expected: 06/17/2023 (Approximate), Expires: 08/17/2023 [facility] Work Phone: Comment on above: Expected: 06/17/2023 (Approximate), Expi res: 08/17/2023 Start: 04-29-2023 End: 06-29-2023 Basic metabolic 2000 panel - Serum or Plasma BASIC METABOLIC PNL Lab Routine CKD stage 3 due to type 2 diabetes mellitus (HCC) Diabetes mellitus, non-insulin dependent (NIDDM or type II) (HCC) Expected: 04/29/2023 (Approximate), Expires: 06/29/2023 [facility] Work Phone: Comment on above: Expected: 04/29/2023 (Approximate), Expi res: 06/29/2023 Start: 04-21-2023 Hemoglobin A1c/Hemoglobin.total in Blood HBA1C [facility] Start: 03-23-2023 End: 05-23-2023 Basic metabolic 2000 panel - Serum or Plasma BASIC METABOLIC PNL Lab Routine Diabetes mellitus, non-insulin dependent (NIDDM or type II) (HCC) Expected: 03/23/2023, Expires: 05/23/2023 [facility] Work Phone: Comment on above: Expected: 03/23/2023, Expires: 3 Start: 03-23-2023 End: 05-23-2023 Hemoglobin A1c in Blood HGB A1C Lab Routine Diabetes mellitus, non-insulin dependent (NIDDM or type II) (HCC) Expected: 03/23/2023, Expires: 05/23/2023 [facility] Work Phone: Comment on above: Expected: 03/23/2023, Expires: 3 Start: 03-23-2023 End: 05-23-2023 SCHEDULE LAB TESTING SCHEDULE LAB TESTING Lab Routine Diabetes mellitus, non-insulin dependent (NIDDM or type II) (HCC) Expected: 03/23/2023, Expires: 05/23/2023 [facility] Work Phone: Comment on above: Expected: 03/23/2023, Expires: 3 Start: 11-14-2022 ADVANCE DIRECTIVE DISCUSSION ADVANCE DIRECTIVE DISCUSSION [facility] Start: 11-14-2022 DEPRESSION ASSESSMENT DEPRESSION ASSESSMENT [facility] Start: 10-27-2022 Hemoglobin A1c/Hemoglobin.total in Blood HBA1C [facility] Start: 10-15-2022 3 comp foot exam completed DIABETIC FOOT EXAM [facility] Start: 10-15-2022 SHINGRIX VACCINE (2 of 3) SHINGRIX VACCINE (2 of 3) [facility] Comment on above: Postponed from 03/19/2015 (Declined at t his time) Start: 10-15-2022 Urine microalbumin profile DTAP,TDAP,TD (1 - Tdap) [facility] Comment on above: Postponed from 1954 (Declined at t his time) Start: 10-12-2022 Hepatitis B screening URINE ALBUMIN:CREATININE RATIO [facility] Start: 10-12-2022 Hepatitis B surface antibody level LDL CHOLESTEROL [facility] Start: 10-08-2022 End: 12-08-2022 ALBUMIN/CREAT RATIO RND UR ALBUMIN/CREAT RATIO RND UR Lab Routine Diabetes mellitus, non-insulin dependent (NIDDM or type II) (HCC) Hypertensive kidney disease with stage 3b chronic kidney disease (HCC) Expected: 10/08/2022, Expires: 12/08/2022 [facility] Work Phone: Comment on above: Expected: 10/08/2022, Expires: 3 Start: 10-08-2022 End: 12-08-2022 Basic metabolic 2000 panel - Serum or Plasma BASIC METABOLIC PNL Lab Routine Diabetes mellitus, non-insulin dependent (NIDDM or type II) (HCC) CKD stage 3 due to type 2 diabetes mellitus (HCC) Essential hypertension Hypertensive kidney disease with stage 3b chronic kidney disease (HCC) Expected: 10/08/2022, Expires: 12/08/2022 [facility] Work Phone: Comment on above: Expected: 10/08/2022, Expires: 3 Start: 10-08-2022 End: 12-08-2022 Hemoglobin A1c in Blood HGB A1C Lab Routine Diabetes mellitus, non-insulin dependent (NIDDM or type II) (HCC) Expected: 10/08/2022, Expires: 12/08/2022 [facility] Work Phone: Comment on above: Expected: 10/08/2022, Expires: 3 Start: 10-08-2022 End: 12-08-2022 LIPID PANEL, NONFASTING LIPID PANEL, NONFASTING Lab Routine Diabetes mellitus, non-insulin dependent (NIDDM or type II) (HCC) Hyperlipidemia associated with type 2 diabetes mellitus (HCC) Expected: 10/08/2022, Expires: 12/08/2022 [facility] Work Phone: Comment on above: Expected: 10/08/2022, Expires: 3 Start: 09-24-2022 Hemoglobin A1c/Hemoglobin.total in Blood HBA1C [facility] Start: 07-26-2022 End: 09-25-2022 CBC panel - Blood by Automated count CBC Lab Routine Iron deficiency anemia, unspecified iron deficiency anemia type CKD stage 3 due to type 2 diabetes mellitus (HCC) Expected: 07/26/2022, Expires: 09/25/2022 [facility] Work Phone: Comment on above: Expected: 07/26/2022, Expires: 2 Start: 07-26-2022 End: 09-25-2022 Ferritin [Mass/volume] in Serum or Plasma FERRITIN BLD Lab Routine Iron deficiency anemia, unspecified iron deficiency anemia type Expected: 07/26/2022, Expires: 09/25/2022 [facility] Work Phone: Comment on above: Expected: 07/26/2022, Expires: 2 Start: 07-26-2022 End: 09-25-2022 Iron and Iron binding capacity panel - Serum or Plasma IRON + TIBC Lab Routine Iron deficiency anemia, unspecified iron deficiency anemia type Expected: 07/26/2022, Expires: 09/25/2022 [facility] Work Phone: Comment on above: Expected: 07/26/2022, Expires: 2 Start: 07-15-2022 Influenza vaccination [facility] Start: 04-26-2022 End: 06-26-2022 CBC panel - Blood by Automated count CBC Lab Routine Iron deficiency anemia, unspecified iron deficiency anemia type Expected: 04/26/2022, Expires: 06/26/2022 [facility] Work Phone: Comment on above: Expected: 04/26/2022, Expires: 2 Start: 04-26-2022 End: 06-26-2022 RETIC COUNT RETIC COUNT Lab Routine Iron deficiency anemia, unspecified iron deficiency anemia type Expected: 04/26/2022, Expires: 06/26/2022 [facility] Work Phone: Comment on above: Expected: 04/26/2022, Expires: 2 Start: 04-12-2022 End: 06-12-2022 Bacteria identified in Urine by Culture URINE CULTURE Microbiology Routine Acute cystitis without hematuria Expected: 04/12/2022, Expires: 06/12/2022 [facility] Work Phone: Comment on above: Expected: 04/12/2022, Expires: 2 Start: 04-12-2022 End: 06-12-2022 URINALYSIS, DIPSTICK ONLY URINALYSIS, DIPSTICK ONLY Lab Routine Acute cystitis without hematuria Expected: 04/12/2022, Expires: 06/12/2022 [facility] Work Phone: Comment on above: Expected: 04/12/2022, Expires: 2 Start: 04-11-2022 Hemoglobin A1c/Hemoglobin.total in Blood HBA1C [facility] Start: 11-14-2021 ADVANCE DIRECTIVE DISCUSSION ADVANCE DIRECTIVE DISCUSSION [facility] Start: 11-14-2021 DEPRESSION ASSESSMENT DEPRESSION ASSESSMENT [facility] Start: 12-07-2018 Glaucoma screening Dilated Retinal Exam [facility] Start: 12-07-2018 Hepatitis C antibody, confirmatory test DILATED RETINAL EXAM [facility] Start: 10-22-2016 PNEUMOCOCCAL: 65+ (2 - PPSV23 or PCV20) PNEUMOCOCCAL: 65+ (2 - PPSV23 or PCV20) [facility] Start: 03-19-2015 SHINGRIX VACCINE (2 of 3) SHINGRIX VACCINE (2 of 3) [facility] Start: 06-14-2013 Colonoscopy COLONOSCOPY [facility] Start: 06-14-2013 Screening for malignant neoplasm of colon Colonoscopy [facility] Start: 06-15-2012 COLORECTAL CANCER SCREENING COLORECTAL CANCER SCREENING [facility] Start: 06-15-2012 Screening for malignant neoplasm of colon Colorectal Cancer Screening [facility] Start: 2010 RSV Vaccine (1 - 1-dose 75+ series) RSV Vaccine (1 - 1-dose 75+ series) [facility] Start: 1995 Hepatitis B Vaccine (1 of 3 - Risk 3-dose series) Hepatitis B Vaccine (1 of 3 - Risk 3-dose series) [facility] Start: 1995 RSV Vaccine (1 - 1-dose 60+ series) RSV Vaccine (1 - 1-dose 60+ series) [facility] Start: 1980 COLOGUARD (FIT-DNA) COLOGUARD (FIT-DNA) [facility] Start: [address] COLONOGRAPHY [facility] Start: 1980 FECAL OCCULT BLOOD FECAL OCCULT BLOOD [facility] Start: 1980 Screening for malignant neoplasm of colon [facility] Start: 1980 SIGMOIDOSCOPY SIGMOIDOSCOPY [facility] Start: 1954 Urine microalbumin profile [facility] Start: 1953 Anxiety Screening Anxiety Screening [facility] Start: 1953 Depression Screening Depression Screening [facility] Start: 1940 COVID-19 VACCINE (#1) COVID-19 VACCINE (#1) [facility] Start: 1940 COVID-19 VACCINE (1) COVID-19 VACCINE (1) [facility] Start: 06-30-1936 COVID-19 VACCINE (#1) COVID-19 VACCINE (#1) [facility] COLOGUARD COLOGUARD Lab Ro utine Screening for colon cancer Ordered: 04/08/2022 [facility] Work Phone: Comment on above: Ordered: 04/08/2022 End: 12-01-2025 MR Ankle - right WO contrast MRI ANKLE WO IVCON RIGHT Radiology Routine Chronic pain of right ankle 1 Occurrences starting 11/01/2024 until 12/01/2025 [facility] Comment on above: 1 Occurrences starting 11/01/2024 until 12/01/2025 End: 09-17-2024 XR Ankle - right AP and Lateral and oblique [facility] Work Phone: Comment on above: 1 Occurrences starting 09/17/2024 until 09/17/2024 End: 12-01-2025 XR Ankle - right AP and Lateral and oblique XR ANKLE GENERAL 3V AP/LAT/OBL RIGHT Radiology Routine Right ankle swelling 1 Occurrences starting 11/01/2024 until 12/01/2025 [facility] Work Phone: Comment on above: 1 Occurrences starting 11/01/2024 until 12/01/2025 XR Ankle - right AP and Lateral and oblique XR ANKLE GENERAL 3V AP/LAT/OBL RIGHT Radiology Routine Right ankle swelling 11/01/2024 2:[address] [facility] XR Calcaneus - right 2 Views XR CALCANEUS 2V AXIAL/LAT RIGHT Radiology Routine Pain in joint involving right ankle and foot 09/19/2024 2:[address] [facility] XR Foot - right AP a nd Lateral and oblique XR FOOT GENERAL 3V AP/LAT/OBL RIGHT Radiology Routine Pain in joint involving right ankle and foot 09/19/2024 2:13 PM EST [facility] Work Phone: End: 12-01-2025 XR Foot - right AP and Lateral and oblique XR FOOT GENERAL 3V AP/LAT/OBL RIGHT Radiology Routine Right ankle swelling 1 Occurrences starting 11/01/2024 until 12/01/2025 [facility] Comment on above: 1 Occurrences starting 11/01/2024 until 12/01/2025 XR Foot - right AP a nd Lateral and oblique XR FOOT GENERAL 3V AP/LAT/OBL RIGHT Radiology Routine Right ankle swelling 11/01/2024 2:21 PM EST [facility] Immunizations Immunization Date Immunization Notes Care Provider Shaun peterson 12-07-2017 influenza virus vacc ine, unspecified formulation Migdalia Cramer MD Work Phone: [facility] 12-01-2016 influenza, high dose seasonal, preservative-free Migdalia Cramer MD Work Phone: [facility] 10-22-2015 pneumococcal conjuga te vaccine, 13 valent Migdalia Cramer MD Work Phone: [facility] Work Phone: 08-15-2015 influenza, high dose seasonal, preservative-free Migdalia Cramer MD Work Phone: [facility] 01-22-2015 zoster vaccine, live Migdalia alfonso MD Work Phone: [facility] 09-18-2014 influenza, seasonal, injectable Migdalia Cramer MD Work Phone: [facility] Work Phone: 09-04-2013 influenza virus vacc ine, unspecified formulation Migdalia Cramer MD Work Phone: [facility] 08-23-2012 influenza virus vacc ine, unspecified formulation Migdalia Cramer MD Work Phone: [facility] Work Phone: 11-22-2011 pneumococcal polysaccharide vaccine, 23 valent Migdalia Cramer MD Work Phone: [facility] 09-15-2011 influenza virus vacc ine, unspecified formulation Migdalia Cramer MD Work Phone: [facility] 09-03-2010 influenza virus vacc ine, unspecified formulation Migdalia Cramer MD Work Phone: [facility] Payers Date Payer Category Payer Self-pay 2020 Medicare [facility] MEDICARE [facility] MEDICARE ADVANTAGE PPO [id number] [address]-[facility] [phone] [address] [address] [place] [address] PPO [id number] 2020 Medicare [facility] MEDICARE [facility] MEDICARE ADVANTAGE PPO [id number] 2020-Present [phone] [address] [address] [place] [address] PPO [id number] 2020 Medicare (Managed Care) [facility] MEDI CARE ADVANTAGE PPO [id number] 2020 Medicare [id number] Unknown [id number] Unknown [id number] Unknown [id number] Unknown [id number] Unknown [id number] Unknown [id number] Unknown [id number] Unknown [id number] Social History Date Type Detail Facility Start: 09-16-2011 End: 10-23-2022 Tobacco smoking status NHIS Never smoked tobacco [facility] Start: 10-15-2021 End: 02-13-2025 Alcohol intake Current non-drinker of alcohol (finding) [facility] Start: 09-10-2020 End: 03-08-2023 History SDOH Alcohol Frequency 1 [facility] Start: 09-10-2020 End: 09-16-2020 History SDOH Social Connections Phone 5 [facility] Start: 09-10-2020 End: 09-16-2020 History SDOH Social Connections Get Together 2 [facility] Start: 09-10-2020 History SDOH Social Connections Jehovah'[employer] Witness 3 [facility] Start: 09-10-2020 History SDOH Social Connections Living 4 [facility] Start: 1935 Sex Assigned At Not on file [facility] Start: 11-09-2021 End: 12-09-2021 Exposure to SARS-CoV-2 (event) Unable to assess [facility] Start: 06-14-2021 End: 05-08-2022 Exposure to SARS-CoV-2 (event) Not sure [facility] Start: 09-16-2011 End: 10-23-2022 Tobacco use and exposure Smokeless tobacco non-user [facility] Start: 09-09-2020 End: 03-17-2023 [facility] Start: 09-09-2020 End: 03-17-2023 Social connection and isolation panel [facility] Do you belong to any clubs or organizations such as orthodox groups, unions, fraternal or athletic groups, or school groups? Yes [facility] Are you now , , , , never or living with a partner? [facility] How often to you hav e a drink containing alcohol? Never [facility] Average Number of Drinks Not on file [facility] Work Phone: Do you feel stress - tense, restless, nervous, or anxious, or unable to sleep at night because your mind is troubled all the time - these days [OSQ] Only a little [facility] (I/We) worried whelowell er (my/our) food would run out before (I/we) got money to buy more. Never true [facility] Work Phone: In the past 12 month s, was there a time when you were not able to pay the mortgage or rent on time? No [facility] Work Phone: Start: 02-14-2025 End: 02-21-2025 Sex Female (finding) [facility] Start: 1935 Sex Assigned At Female [facility] Medical Equipment Procedure Code Equipment Code Equipment Origin al Text Equipment Identifier Dates [id number], [id number], [id number] Start: 2019 End: 08-21-2024 Comment on above: USE DIRECTED TO T EST BLOOD SUGARS 3 TIMES A DAY Test blood sugar onc e daily Functional Status Date Assessment Result Facility 12-12-2024 Are you deaf, or do you have serious difficulty hearing No 12/12/2024 1:12 PM Petrona Arreguin RN No [facility] 12-12-2024 Are you blind, or do you have serious difficulty seeing, even when wearing glasses No 12/12/2024 1:12 PM Petrona Arreguin RN No [facility] 12-12-2024 Do you have serious difficulty walking or climbing stairs No 12/12/2024 1:12 PM Petrona Arreguin RN No [facility] 12-12-2024 Do you have difficul ty dressing or bathing No 12/12/2024 1:12 PM Petrona Arreguin RN No [facility] 12-12-2024 Because of a physica l, mental, or emotional condition, do you have difficulty doing errands alone such as visiting a physician's office or shopping No 12/12/2024 1:12 PM Petrona Arreguin RN No [facility] 03-09-2023 Are you deaf, or do you have serious difficulty hearing Yes 03/09/2023 4:15 PM Shannon Kraus, LIT Yes [facility] 03-09-2023 Are you blind, or do you have serious difficulty seeing, even when wearing glasses No 03/09/2023 4:15 PM EDT Shannon Stringer RN No [facility] 03-09-2023 Do you have serious difficulty walking or climbing stairs Yes 03/09/2023 4:15 PM EDT Shannon Stringer, LIT Yes [facility] 03-09-2023 Do you have difficul ty dressing or bathing Yes 03/09/2023 4:15 PM EDT Shannon Stringer, LIT Yes [facility] 03-09-2023 Because of a physica l, mental, or emotional condition, do you have difficulty doing errands alone such as visiting a physician's office or shopping Yes 03/09/2023 4:15 PM EDT Shannon Stringer RN Yes [facility] Mental Status Date Assessment Result Facility 12-12-2024 Because of a physica l, mental, or emotional condition, do you have serious difficulty concentrating, remembering, or making decisions No 12/12/2024 1:12 PM Petrona Arreguin RN No [facility] 03-09-2023 Because of a physica l, mental, or emotional condition, do you have serious difficulty concentrating, remembering, or making decisions Yes 03/09/2023 4:15 PM EDT Shannon Stringer RN Yes [facility] Clinical Notes 05-25-2017 to 05-01-2025 Telephone Encounter - Ketty Remy LPN - 05/01/2025 4:37 PM EDTTelephone Encounter - Ketty Remy LPN - 05/01/2025 4:37 PM Lien Gilman DPM - 02/14/2025 9:04 AM EDTPatient Instructions Note Date & Type Note Facility 05-01-2025 Telephone encounter Note Received results of labs done on [facility] from 04/29/25 (abnormal results in bold): CRP 21.0 sed rate 32 Report sent for scanning. [facility] 05-01-2025 Miscellaneous Notes Received results of labs done on [facility] from 04/29/25 (abnormal results in bold): CRP 21.0 sed rate 32 Report sent for scanning. documented in this encounter [facility] 02-14-2025 Note [facility] 02-14-2025 History of Present illness Narrative Date of Visit: 02/13/2025 CHIEF COMPLAINT: Right ankle wound and RT heel pressure check SP OR right ankle incision and drainage and ulcer debridement 11/27/24 DM II, HgbA1c 10.4 (11/21/24) ADM 11/21/24-12/12/24 HISTORY OF PRESENT ILLNESS: Patient presents to the wound center for follow up since admission to [facility] 11/21/24 where she underwent RT ankle [...] pad every other day. She is at [facility] can WB AT BL continue offloading [...] accompanied by family members Home Care Company/Nursing Facility:[facility] Consent captured for debridement per Lien Bang DPM and alex until July 2025 Anticoagulant Therapy: N/A Living Situation (ie... 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 Bang in 2 weeks - Continue [...] allergies, and The intended procedure Time Out: 0108 Relevant labs, photos, and/or imaging studies have [...] [facility] documented in this encounter [facility] 02-13-2025 Instructions Margie Steiner RN - 02/13/2025 1:29 PM EDT WOUND CARE INSTRUCTIONS- Yusuf Medina Wound location: Right Ankle [facility]: - Wound Care Instructions: - Gather [...] for 1 additional month then stop Apply tubi-screw remover D to bilateral lower legs Apply a Single layer tubi-screw remover compression stocking to the right foot base [...] following changes to the Wound Center at [phone] or go to the Emergency Department: Fever or chills Increased drainage Green or yellow drainage Foul odor Increased pain Hardness around the wound Redness, warmth or swelling of the surrounding tissue Color change to the wound When contacting the wound center at the ([phone]): Leave a message that includes your full [...] emergency department. PLAN/ORDERS: - Return to the [facility] for a follow-up with television anchor Dr. Bang in 2 weeks - Continue [...] Lien Bang DPM/osvaldo/patrick documented in this encounter [facility] 02-13-2025 Note [facility] 02-11-2025 Telephone encounter Note Received results of labs done on 02/04/2025 from [facility] (abnormal results in bold): sed rate 23 0-30 Report sent for scanning. [facility] 02-11-2025 Miscellaneous Notes Received results of labs done on 02/04/2025 from [facility] (abnormal results in bold): sed rate 23 0-30 Report sent for scanning. documented in this encounter [facility] 01-18-2025 Telephone encounter Note Noted Willie Kaur APRN.CNP [facility] 01-18-2025 Miscellaneous Notes Noted Willie Kaur APRN.CNP Contacted [facility] spoke with Gabbie (nurse), I asked to clarify patient's medication or send updated med list. She states We don't need anything from you She's living here permanently & uses primary care in-house doc. No further information was given or obtained. Chart indicates that she is at [facility], phone number on a fax recently received indicates the SNF is [phone]. Please call the facility that she is at to verify which cholesterol medicine she is taking since caregiver Demetria is not currently in chare of medication administration and can't clarify pravachol vs lipitor. Thank you. Willie Kaur APRN.CNP/ Relative Demetria states the patient is in a ch[facility] now, so she needs someone to reach out to her because she states they are giving her different medications at the chcf. Please reach out to her at [phone] Attempted to contact relative Demetria with no success. Left VM requesting call back. If relative returns call, please clarify prescription. Images from the original note were not included. Pended med is Pravastatin (Pravachol). [facility] med list indicates atorvastatin (Lipitor). Please [...] Jame Hernandez MA documented in this encounter [facility] 01-18-2025 Telephone encounter Note Contacted [facility] spoke with Gabbie (nurse), I asked to clarify patient's medication or send updated med list. She states We don't need anything from you She's living here permanently & uses primary care in-house doc. No further information was given or obtained. [facility] 01-18-2025 Telephone encounter Note Chart indicates that she is at [facility], phone number on a fax recently received indicates the SNF is [phone]. Please call the facility that she is at to verify which cholesterol medicine she is taking since caregiver Demetria is not currently in chare of medication administration and can't clarify pravachol vs lipitor. Thank you. Willie Kaur APRN.BENEFITS SPECIALIST RECRUITER/ [facility] 01-17-2025 Telephone encounter Note Relative Demetria states the patient is in a chcf now, so she needs someone to reach out to her because she states they are giving her different medications at the chcf. Please reach out to her at [phone] [facility] 01-17-2025 Telephone encounter Note Attempted to contact relative Demetria with no success. Left VM requesting call back. If relative returns call, please clarify prescription. [facility] 01-17-2025 Note [facility] 01-17-2025 History of Present illness Narrative Date of Visit: 01/16/2025 CHIEF COMPLAINT: Right ankle wound and RT heel pressure check SP OR right ankle incision and drainage and ulcer debridement 11/27/24 DM II, HgbA1c 10.4 (11/21/24) ADM 11/21/24-12/12/24 HISTORY OF PRESENT ILLNESS: Patient presents to the wound center for follow up since admission to [facility] 11/21/24 where she underwent RT ankle [...] negative pressure. To continue wound vac at AR. Removed vac dressing and debrided wound today. [...] tubigrip every other day. She is at [facility] can WB AT continue offloading [...] accompanied by family members Home Care Company/Nursing Facility:[facility] Consent captured for debridement per Lien Bang DPM and alex until July 2025 Anticoagulant Therapy: N/A Living Situation (ie... Apartment, house, LONG-TERM): Facility Who lives with patient: Self Who will be performing wound care: 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 DME: Facility SPECIAL NEEDS: Coordination of care N/A Emotional support N/A OR set-up N/A Executive Administrator N/A Incontinence needs N/A DISCHARGED in stable condition to: Arrived via wheelchair accompanied by family & aide PLAN/ORDERS: - Return to the [facility] for a follow-up with television anchor Dr. Bang in 2 weeks - Follow-up [...] Nanette Welch RN/akiko documented in this encounter [facility] 01-17-2025 Telephone encounter Note Images from the original note were not included. Pended med is Pravastatin (Pravachol). [facility] med list indicates atorvastatin (Lipitor). Please clarify which patient is taking. Willie Kaur APRN.BENEFITS SPECIALIST RECRUITER [facility] 01-16-2025 Telephone encounter Note Patient has [...] Please review and advise. Jame Hernandez MA [facility] 01-16-2025 Instructions Nanette Welch RN - 01/16/2025 1:12 PM EST WOUND CARE INSTRUCTIONS- Yusuf Medina Wound location: Right Ankle [facility] HOME: - Please re-apply wound VAC today [...] the wound base. - Cover with 4x4 [place] SAP bordered foam or equivalent dressing. - Change your dressing every other day or as needed to maintain a clean, dry and intact dressing. Apply a Single layer tubi-screw remover compression stocking to the right foot base [...] following changes to the Wound Center at [phone] or go to the Emergency Department: Fever or chills Increased drainage Green or yellow drainage Foul odor Increased pain Hardness around the wound Redness, warmth or swelling of the surrounding tissue Color change to the wound When contacting the wound center at the ([phone]): Leave a message that includes your full [...] emergency department. PLAN/ORDERS: - Return to the [facility] for a follow-up with television anchor Dr. Bang in 2 weeks - Follow-up [...] Bang DPM /mh/fm documented in this encounter [facility] 01-16-2025 Note [facility] 01-08-2025 Telephone encounter Note Per Alon-- Labs rev Page stop date today PICC removal in the [...] the picc line after the last dose. [facility] 01-08-2025 Miscellaneous Notes Per Alon-- Labs rev Page stop date today PICC removal in the [...] has an appt today with Alon at [facility]. She's currently on Cefazolin 2g iv [...] differential wasn't done on the cbc The HOLISTIC SPECIALIST has added it on moving forward The results were attached to the M drive Spoke to the HOLISTIC SPECIALISTnaveen requested Lilo from [facility] called [phone] to schedule the follow up, I gave her the [facility] number and 01/08 for the schedule date. Delfina Elias Yusuf is still inpt at [facility] She will be d/c to [facility] [phone] Summary: COPAT ACTION-FOR IDC USE ONLY Images from the original note were not included. 11/28/2024 8:48 PM Pierce Chi IN PROVIDER ADULT [id number] Patient Info Patient Name Sex Yusuf Medina ([id number]) Female 1935 Encounter Notes Progress Notes by Pierce Chi MD, encounter date 11/28/2024: Progress Notes [facility] Outpatient Parenteral Antimicrobial Therapy (OPAT) Start Form Patient Info Patient MRN Patient Name Address Date of [id number] Yusuf Medina [address] [facility] [id number] 1935 Start Date 11/28/2024 Physician Group [facility] [...] Monitoring Treatment Course Pierce Chi MD Address [address] [place] [address] Prescribing Provider's signature - electronically signed by Pierce Chi MD on 11/28/24 at 8:50 PM documented in this encounter [facility] 01-08-2025 Note [facility] 02-25-2025 History of Present illness Narrative [...] or type II) CATIE PLAN: Labs rev Page stop date today PICC removal in the [...] accompanied by family members Home Care Company/Nursing Facility:[facility] Consent captured for debridement per Lien Bang DPM and good until December 2024 Anticoagulant Therapy: N/A Living Situation (ie... 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 Bang on January 16 at 1:00 [...] - Please follow-up with your PCP or printed circuit layout taper about your elevated blood pressure readings. - [...] Cinthia Dao RN/TC documented in this encounter [facility] 01-08-2025 Instructions Cinthia Dao RN - 01/08/2025 12:51 PM EST WOUND CARE INSTRUCTIONS- Yusuf Medina Wound location: Right Ankle [facility]: - Please re-apply wound VAC today [...] following changes to the Wound Center at [phone] or go to the Emergency Department: Fever or chills Increased drainage Green or yellow drainage Foul odor Increased pain Hardness around the wound Redness, warmth or swelling of the surrounding tissue Color change to the wound When contacting the wound center at the ([phone]): Leave a message that includes your full [...] emergency department. PLAN/ORDERS: - Return to the [facility] for a follow-up with television anchor Dr. Bang on January 16 at 1:00 [...] - Please follow-up with your PCP or printed circuit layout taper about your elevated blood pressure readings. - If you have any questions or concerns that cannot be answered with the following information, please follow the instructions listed above on how to contact the wound center. Pierce Chi MD/ALANA/JOHN documented in this encounter [facility] 01-08-2025 Note [facility] 01-08-2025 Telephone encounter Note Yusuf has an appt today with Alon at [facility]. She's currently on Cefazolin 2g iv q8 with a stop date for today. [facility] 01-07-2025 Telephone encounter Note Jan 07 labs reviewed, no changes The creat was never done The results were attached to the M drive [facility] 01-04-2025 Telephone encounter Note Received record release from [facility]. Faxed to number provided on form, confirmation fax received. [facility] 01-04-2025 Miscellaneous Notes Received record release from [facility]. Faxed to number provided on form, confirmation fax received. The initial note indicates that a personal banking representative is calling and gave return phone number [phone]. I called this number and phone rang and rang numerous times. No voice mail. I can print of POA, stamp and fax since this is a facility to facility request. Given to nursing. If the personal banking representative needs anything else and calls back, Please ask for name and direct line so that return call can be made. Thank you. Willie Kaur APRN.DRAKE Spoke with a national secretary at [facility], he took the info again to get us a signed records release faxed to the office. Please watch for fax Please advise [facility] that if patient signs record release, they can get any records they need from [facility] medical records. Or family can sign record request at [facility] and [facility] can fax Family Medicine the records request and I can send what I can. Our fax is [phone]. Willie Kaur APRN.BENEFITS SPECIALIST RECRUITER Records release was not signed. Please review and advice. Received call from [facility]. The personal banking representative has appointment with patient's sons this afternoon at 2 pm and is requesting Advanced Directive/POA paperwork that was scanned in on 2/17. Advised to send records request, but she is concerned about not having this paperwork by 2 pm meeting. Antique Furniture Repairer can be reached at [phone]. Fax number given for records request as well. documented in this encounter [facility] 01-04-2025 Telephone encounter Note The initial note indicates that a personal banking representative is calling and gave return phone number [phone]. I called this number and phone rang and rang numerous times. No voice mail. I can print of POA, stamp and fax since this is a facility to facility request. Given to nursing. If the personal banking representative needs anything else and calls back, Please ask for name and direct line so that return call can be made. Thank you. Willie Kaur APRN.BENEFITS SPECIALIST RECRUITER [facility] 01-04-2025 Telephone encounter Note Spoke with a national secretary at [facility], he took the info again to get us a signed records release faxed to the office. Please watch for fax [facility] 01-04-2025 Telephone encounter Note Please advise [facility] that if patient signs record release, they can get any records they need from [facility] medical records. Or family can sign record request at [facility] and [facility] can fax Family Medicine the records request and I can send what I can. Our fax is [phone]. Willie Kaur APRN.DRAKE [facility] 01-04-2025 Note HNO ID: [id number] Author: TYESHA SINGLETON MD Service: ? Author [...] with dramatic improvement Currently she is in [place] and here with AVELINA and nurse aid who gives the history Currently she is pain free Also spoke with her nurse at [facility] who states patient does nto complain of pain, pretty sedentary. No specific complaints at [facility] per nurse Currently doing well, no pain at present Family states after debridement of rt ankle- patient feels weak and does not want to walk around Was living alone until 2 months ago and now at [facility]. Prior to debridement , patient was not [...] L REMV CATARACT EXTRACAP,INSERT LENS Bilateral [address] [facility] predniSONE (DELTASONE) 5 mg tablet Take [...] Sister None B (more content not included)... [facility] 01-04-2025 History of Present illness Narrative [...] with dramatic improvement Currently she is in [place] and here with AVELINA and nurse aid who gives the history Currently she is pain free Also spoke with her nurse at [facility] who states patient does nto complain of pain, pretty sedentary. No specific complaints at [facility] per nurse Currently doing well, no pain at present Family states after debridement of rt ankle- patient feels weak and does not want to walk around Was living alone until 2 months ago and now at [facility]. Prior to debridement , patient was not [...] L REMV CATARACT EXTRACAP,INSERT LENS Bilateral [address] [facility] predniSONE (DELTASONE) 5 mg tablet Take [...] every day prn -written instructions given to [facility] as well as verbal instructions to family and nurse who is taking care of her at [facility] 2. Rt ankle cellulitis and osteomyelitis -currently [...] Swollen Glands: No documented in this encounter [facility] 01-03-2025 Telephone encounter Note Records release was not signed. Please review and advice. [facility] 01-03-2025 Telephone encounter Note Received call from [facility]. The personal banking representative has appointment with patient's sons this afternoon at 2 pm and is requesting Advanced Directive/POA paperwork that was scanned in on 12/31. Advised to send records request, but she is concerned about not having this paperwork by 2 pm meeting. Antique Furniture Repairer can be reached at [phone]. Fax number given for records request as well. [facility] 01-02-2025 Telephone encounter Note SOCIAL WORK Date of Service: Thursday January 02, [address] [facility] Winding Machine Operator (SW) Aditi Lopez attempted to contact Yusuf Medina by phone using foreman/project manager services to complete the distress assessment. Yusuf [...] Yusuf will most likely not understand the Barb[place] foreman/project manager because she speaks a different dialect. At this time, social work service is declined/deferred based on: she pt is at a SNF and family member completed the questionnaire. Please re-consult social work if any other psychosocial needs arise. Unable To Reach Patient PLAN: Follow up on an as needed basis ALEJANDRO Encarnacion [facility] Work Phone: 01-02-2025 Miscellaneous Notes SOCIAL WORK Date of Service: Thursday January 02, [address] [facility] Winding Machine Operator (SW) Aditi Lopez attempted to contact Yusuf Medina by phone using foreman/project manager services to complete the distress assessment. Yusuf [...] Yusuf will most likely not understand the Barb[place] foreman/project manager because she speaks a different dialect. At this time, social work service is declined/deferred based on: she pt is at a SNF and family member completed the questionnaire. Please re-consult social work if any other psychosocial needs arise. Unable To Reach Patient PLAN: Follow up on an as needed basis ALEJANDRO Encarnacion documented in this encounter [facility] 01-02-2025 Instructions Grupo Mendez MD - 01/02/2025 9:19 AM EST Hemoglobin was low at 7.8 Obtaining repeat lab to determine if blood transfusion needed and if needs nutrient support for anemia Recommend repeating blood counts once weekly for next 6 weeks starting next week Please schedule follow-up with Dr. Mendez in 7 weeks For scheduling questions, please call [phone] (tests and appointments). Ask for the oncology senior master scheduler. For symptom management or care coordination questions, please call Renetta at [phone] or use my chart to reach us. After hours with medical questions, please call the doctor on-call at [phone]. Thank you, Grupo Mendez MD documented in this encounter [facility] 01-02-2025 Note HNO ID: [id number] Author: GRUPO MENDEZ MD Service: ? Author [...] L REMV CATARACT EXTRACAP,INSERT LENS Bilateral 2020 [facility] FAMILY HISTORY Problem Relation Age of [...] (3 mL) I (more content not included)... [facility] 01-02-2025 History of Present illness Narrative [...] L REMV CATARACT EXTRACAP,INSERT LENS Bilateral [address] [facility] FAMILY HISTORY Problem Relation Age of [...] Range Status 01/02/2025 5.9 % Final Abs [place] Date Value Ref Range Status 01/02/2025 0.61 [...] today's encounter, 01/02/2025) documented in this encounter [facility] 2024 Telephone encounter Note Dec 31 labs reviewed, no changes The results were attached to the M drive [facility] 12-27-2024 Note [facility] 12-27-2024 History of Present illness Narrative Date of Visit: 12/26/2024 CHIEF COMPLAINT: Right ankle wound and NEW RT heel pressure ulcer OR right ankle incision and drainage and ulcer debridement 11/27/24 DM II, HgbA1c 10.4 (11/21/24) ADM 11/21/24-12/12/24 HISTORY OF PRESENT ILLNESS: Patient presents to the wound center for first follow up since admission to [facility] 11/21/24 where she underwent RT ankle [...] PT, but mostly non ambulatory currently at [facility]. Denies N/V/F/C/D/SOB/CP/LP HX S/p RT ankle I&D [...] became inflamed and infected. Patient arrived via:[facility]/Nursing Facility:[facility] rehab until 01/08 for IV abx Consent captured for debridement per Lien Bang DPM and alex until December 2024. Special Instructions (for example, patient stands at the bedside for exam/dressing): Anticoagulant Therapy:n/a Living Situation (ie... 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 Provider seeing patient:Lien Bang ANIRUDH __ WOUND [...] COMPRESSION: N/A DME: Prism order date DME: [facility] [employer] , PH: [phone] SPECIAL NEEDS: Coordination of care N/A Emotional support N/A OR set-up N/A Executive Administrator N/A Incontinence needs N/A DISCHARGED in stable [...] Sravanthi Hollis RN/TC documented in this encounter [facility] 12-26-2024 Telephone encounter Note Noted Willie Kaur APRN.CNP [facility] 12-26-2024 Miscellaneous Notes Noted Willie Kaur [...] caregiver demetria tapia calling to have her [employer] [place] message she sent below addressed. Yusuf Robles's sons and are in town to make an assessment whether she is able to go home from rehab. Can you talk with them to help with their decision? Please call Nathaniel Medina at [phone]. They are here till Tuesday 12 noon. Thank you. documented in this encounter [facility] 12-26-2024 Telephone encounter Note Contacted kyrie Armstrong--advised [...] a POA to act on pt's behalf [facility] 12-26-2024 Telephone encounter Note Dec 24 labs reviewed, no changes The results were attached to the M drive [facility] 12-26-2024 Telephone encounter Note Addressed in other encounter. Willie Kaur APRN.BENEFITS SPECIALIST RECRUITER [facility] 12-26-2024 Miscellaneous Notes Addressed in other encounter. Willie Kaur APRN.BENEFITS SPECIALIST RECRUITER documented in this encounter [facility] 12-26-2024 Instructions Sravanthi Hollis RN - 12/26/2024 1:09 PM EST WOUND CARE INSTRUCTIONS- Yusuf Medina [facility]ound [facility]: [facility] -PLEASE CONTINUE WOUND VAC PREVIOUS ON [...] following changes to the Wound Center at [phone] or go to the Emergency Department: Fever or chills Increased drainage Green or yellow drainage Foul odor Increased pain Hardness around the wound Redness, warmth or swelling of the surrounding tissue Color change to the wound When contacting the wound center at the ([phone]): Leave a message that includes your full [...] to be scheduled through Central Scheduling. Call [phone].(If applicable) Please be aware that the Covid19 exposure questions will be asked as you enter the hospital and as you arrive to each area. Thank you for your patience and understanding as we attempt to protect our patients during this difficult time. Lien Bang DPM/fhm/tc documented in this encounter [facility] 12-26-2024 Note [facility] 12-26-2024 Telephone encounter Note I wish [...] physical safety for discharge. Willie Kaur APRN.DRAKE [facility] 12-26-2024 Telephone encounter Note Spoke to the nurse, naveen Cartwright requested [facility] 12-26-2024 Telephone encounter Note Patients caregiver demetria tapia calling to have her [employer] [place] message she sent below addressed. Yusuf Robles's sons and are in town to make an assessment whether she is able to go home from rehab. Can you talk with them to help with their decision? Please call Nathaniel Medina at [phone]. They are here till Tuesday 12 noon. Thank you. [facility] Work Phone: 12-25-2024 Telephone encounter Note The following approved medication requests have been transmitted electronically. Requested Prescriptions Signed Prescriptions Disp Refills amLODIPine (NORVASC) 5 mg tablet 90 tablet 3 Sig: TAKE 1 TABLET BY MOUTH ONCE DAILY Authorizing Provider: WILLIE KAUR APRN.BENEFITS SPECIALIST RECRUITER [facility] 12-25-2024 Miscellaneous Notes The following approved medication requests have been transmitted electronically. Requested Prescriptions Signed Prescriptions Disp Refills amLODIPine (NORVASC) 5 mg tablet 90 tablet 3 Sig: TAKE 1 TABLET BY MOUTH ONCE DAILY Authorizing Provider: WILLIE KAUR APRN.BENEFITS SPECIALIST RECRUITER Patient has been identified by name and [...] Aditi Phan LPN documented in this encounter [facility] 12-25-2024 Telephone encounter Note Patient has [...] Please review and advise. Aditi Phan LPN [facility] 12-20-2024 Telephone encounter Note Dec 17 labs wnl The differential wasn't done on the cbc The HOLISTIC SPECIALIST has added it on moving forward The results were attached to the M drive [facility] 12-20-2024 Telephone encounter Note Spoke to the HOLISTIC SPECIALIST, naveen requested [facility] 12-13-2024 Telephone encounter Note Lilo from [facility] called [phone] to schedule the follow up, I gave her the [facility] number and 01/08 for the schedule date. Delfina Elias [facility] 12-11-2024 Note [facility] 12-10-2024 Telephone encounter Note Yusuf is still inpt at [facility] She will be d/c to [facility] [phone] [facility] 12-10-2024 Note [facility] 12-10-2024 Note [facility] 12-09-2024 Note [facility] 12-09-2024 Note [facility] 12-08-2024 Note [facility] 12-07-2024 Note [facility] 12-07-2024 Note [facility] 12-06-2024 Note [facility] 12-05-2024 Note [facility] 12-04-2024 Note [facility] 12-03-2024 Note [facility] 12-02-2024 Note [facility] 12-01-2024 Note [facility] 12-01-2024 Note [facility] 12-01-2024 Note [facility] 11-30-2024 Note [facility] 11-29-2024 Note [facility] 11-29-2024 Telephone encounter Note Summary: COPAT ACTION-FOR IDC USE ONLY Images from the original note were not included. 11/28/2024 8:48 PM Pierce Chi IN PROVIDER ADULT [id number] Patient Info Patient Name Sex Yusuf Medina ([id number]) Female 1935 Encounter Notes Progress Notes by Pierce Chi MD, encounter date 11/28/2024: Progress Notes [facility] Outpatient Parenteral Antimicrobial Therapy (OPAT) Start Form Patient Info Patient MRN Patient Name Address Date of [id number] Yusuf Medina [address] [facility] [id number] 1935 Start Date 11/28/2024 Physician Group [facility] [...] Monitoring Treatment Course Pierce Chi MD Address [address] [place] [address] Prescribing Provider's signature - electronically signed by Pierce Chi MD on 11/28/24 at 8:50 PM [facility] 11-29-2024 Note [facility] 11-28-2024 Note [facility] 11-28-2024 History of Present illness Narrative Images from the original note were not included. [facility] Outpatient Parenteral Antimicrobial Therapy (OPAT) Start Form Patient Info Patient MRN Patient Name Address Date of [id number] Yusuf Medina [address] [facility] [id number] 1935 Start Date 11/28/2024 [facility]ician [facility] [...] Monitoring Treatment Course Pierce Chi MD Address [address] [place] [address] Prescribing Provider's signature - electronically signed by Pierce Chi MD on 11/28/24 at 8:50 PM documented in this encounter [facility] 11-28-2024 Note [facility] 11-28-2024 Note [facility] 11-27-2024 Telephone encounter Note The following approved medication requests have been transmitted electronically. Requested Prescriptions Signed Prescriptions Disp Refills metFORMIN (GLUCOPHAGE) 850 mg tablet 180 tablet 3 Sig: TAKE 1 TABLET BY MOUTH TWICE DAILY WITH MEALS Authorizing Provider: WILLIE KAUR APRN.BENEFITS SPECIALIST RECRUITER [facility] 11-27-2024 Miscellaneous Notes The following approved [...] Martina Tucker MA documented in this encounter [facility] 11-27-2024 [facility] 11-27-2024 Telephone encounter Note Patient has been [...] Please review and advise. Martina Tucker MA [facility] 11-26-[address] Mendez reviewed labs from [facility]. Dr. Mendez recommended for patient to be seen around mid Dec 2024 as hem/onc follow-up. Grupo Mendez MD November 26, 2024 5:33 PM [facility] Work Phone: 11-26-[address] Mendez reviewed labs from [facility]. Dr. Mendez recommended for patient to be seen around mid Dec 2024 as hem/onc follow-up. Grupo Mendez MD November 26, 2024 5:33 PM Spoke w/ pt resource conservation managerDemetria. Pt is still inpatient. When she is discharged she will be sent to a rehab and will not be able to make appts. Any time soon. Please advise for further requirements. documented in this encounter [facility] 11-26-2024 Note [facility] 11-26-2024 Telephone encounter Note Spoke w/ pt resource conservation managerDemetria. Pt is still inpatient. When she is discharged she will be sent to a rehab and will not be able to make appts. Any time soon. Please advise for further requirements. [facility] 11-26-2024 Note [facility] 11-25-2024 Note [facility] 11-24-2024 Note [facility] 11-23-2024 Note [facility] 11-23-2024 Note [facility] 11-22-2024 Note [facility] 11-21-2024 Note [facility] 11-21-2024 Telephone encounter Note Currently has appointment in Rheumatology 01/04/25 to evaluate for inflammatory arthritis. There was a Hematology appointment scheduled 12/03/24, but rescheduled by family due to location. MRI ankle 11/19/24 ordered by Orthopedics. Patient sent My Chart message to Orthopedics 11/20/24. I reminded patient/family that My Chart can take up to 72 business hours for response. Willie Kaur APRN.DRAKE [facility] 11-21-2024 Miscellaneous Notes Currently has appointment [...] Willie Kaur APRN.CNP documented in this encounter [facility] 11-19-2024 History of Present illness Narrative Radiology Service Progress Note PATIENT NAME: Ysuuf Medina DATE OF SERVICE: November 19, 2024 [...] PATIENT PRESENTS WITH AN IMPLANTABLE OR ATTACHED KILN BURNER HELPER: No RADIOLOGY DEPARTMENT: MR; Exam(s) Completed: Lower MSK: Ankle/Hind Foot, right PERIPHERAL IV DATA: Not applicable SIGNED BY: FRANCIS Tierney November 19, 2024 10:07 AM documented in this encounter [facility] 11-19-2024 Note HNO ID: [id number] Author: YAZ MAYFIELD MRI Tech Service: Radiology Author Type: Gum Puller Type: Progress Notes Filed: 11/19/2024 10:08 Note [...] PATIENT PRESENTS WITH AN IMPLANTABLE OR ATTACHED KILN BURNER HELPER: No RADIOLOGY DEPARTMENT: MR; Exam(s) Completed: Lower MSK: Ankle/Hind Foot, right PERIPHERAL IV DATA: Not applicable SIGNED BY: FRANCIS Tierney November 19, 2024 10:07 AM [facility] 11-06-2024 Telephone encounter Note Patient took a sooner appt in November. [facility] 11-06-2024 Miscellaneous Notes Patient took a sooner appt in November. Currently has Rheumatology scheduled 01/04/25. Are there any sooner appointments and would family be interested? She has been seeing Hematology and they think that her abnormal blood work may have a Rheumatology cause. iWllie Kaur APRN.BENEFITS SPECIALIST RECRUITER documented in this encounter [facility] 11-06-2024 Telephone encounter Note Currently has Rheumatology scheduled 01/04/25. Are there any sooner appointments and would family be interested? She has been seeing Hematology and they think that her abnormal blood work may have a Rheumatology cause. Willie Kaur APRN.BENEFITS SPECIALIST RECRUITER [facility] 11-05-2024 Telephone encounter Note Patient has secondary leukocytosis in the setting of highly elevated sed rate, RUBEN 1:320 titer, positive FAMILY AND CONSUMER SCIENCE PROFESSOR Hematology work-up was essentially negative highlighting concern for rheumatological disease. Patient is leaving to [place] for 2 weeks I will schedule lab on 11/21/2024 and see her on 11/22/2024 at 9:10 AM for iron deficiency (this is separate issue). Renetta with care coordination will kindly help with arranging lab and follow-up as above. Patient and family aware of my plan. Grupo Mendez MD November 05, 2024 6:55 PM [facility] 11-05-2024 Miscellaneous Notes Patient has secondary leukocytosis in the setting of highly elevated sed rate, RUBEN 1:320 titer, positive FAMILY AND CONSUMER SCIENCE PROFESSOR Hematology work-up was essentially negative highlighting concern for rheumatological disease. Patient is leaving to [place] for 2 weeks I will schedule lab on 11/21/2024 and see her on 11/22/2024 at 9:10 AM for iron deficiency (this is separate issue). Renetta with care coordination will kindly help with arranging lab and follow-up as above. Patient and family aware of my plan. Grupo Mendez MD November 05, 2024 6:55 PM documented in this encounter [facility] 11-01-2024 Note Addended by: SIMONE AGUILAR on: 11/01/2024 03:34 PM Modules accepted: Orders [facility] 11-01-2024 Miscellaneous Notes Addended by: SIMONE KEVIN on: 11/01/2024 03:34 PM Modules accepted: Orders documented in this encounter [facility] 11-01-2024 Note HNO ID: [id number] Author: SIMOEN KEVIN MD Service: ? Author Type: Physician [...] L REMV CATARACT EXTRACAP,INSERT LENS Bilateral [address] [facility] Family History: FAMILY HISTORY Problem Relation Age of Onset None Brother None Sister None Brother Medications: Current Outpatient Medications Medication Sig meloxicam (MOBIC) 15 mg tablet TAKE 1 TABLET BY MOUTH ONCE DAILY NEEDED FOR PAIN. DO NOT COMBINE WITH DICLOFENAC GEL traZODone (DESYREL) 50 mg tablet Take 1 tablet by mouth at bedtime as needed for sedation. blood sugar diagnostic ([employer]TOUCH ULTRA TEST) test strip Test blood sugar [...] her anatomy B (more content not included)... [facility] 11-01-2024 History of Present illness Narrative [...] L REMV CATARACT EXTRACAP,INSERT LENS Bilateral 2020 [facility] Family History: FAMILY HISTORY Problem Relation [...] next visit: No PCP: [place] [id number] [facility] [address] FELLOW / RESIDENT: No fellow or resident assisted in this office visit. Simone Kevin MD documented in this encounter [facility] 10-29-2024 Note HNO ID: [id number] Author: AB BENSON MD Service: ? Author Type: Physician Type: Progress Notes Filed: 11/04/2024 19:29 Note Text: This note was created using Cranite Systems[employer]. Subjective Yusuf Medina is a 88 year [...] and family voiced understanding. Ab Benson MD [facility] 10-29-2024 History of Present illness Narrative Images from the original note were not included. This note was created using [employer]. Subjective Yusuf Medina is a 88 year [...] Ab Benson MD documented in this encounter [facility] 10-12-2024 Telephone encounter Note The following approved medication requests have been transmitted electronically. Requested Prescriptions Signed Prescriptions Disp Refills meloxicam (MOBIC) 15 mg tablet 90 tablet 3 Sig: TAKE 1 TABLET BY MOUTH ONCE DAILY NEEDED FOR PAIN. DO NOT COMBINE WITH DICLOFENAC GEL Authorizing Provider: WILLIE KAUR APRN.CNP [facility] 10-12-2024 Miscellaneous Notes The following approved [...] Martina Tucker MA documented in this encounter [facility] 10-12-2024 Telephone encounter Note Patient has [...] DICLOFENAC GEL Please review and advise. Martina Tucekr MA [facility] 09-20-2024 History of Present illness Narrative [...] L REMV CATARACT EXTRACAP,INSERT LENS Bilateral [address] [facility] Family History: FAMILY HISTORY Problem Relation Age of Onset None Brother None Sister None Brother Medications: Current Outpatient Medications Medication Sig traZODone (DESYREL) 50 mg tablet Take 1 tablet by mouth at bedtime as needed for sedation. blood sugar diagnostic ([employer] Technologies[employer]CH ULTRA TEST) test strip Test blood sugar [...] next visit: No P[place]: [place] [id number] [facility] [id number] FELLOW / RESIDENT: No fellow or resident assisted in this office visit. Simone Kevin MD documented in this encounter [facility] 09-20-2024 Note HNO ID: [id number] Author: SIMONE KEVIN MD Service: ? Author [...] L REMV CATARACT EXTRACAP,INSERT LENS Bilateral [address] [facility] Family History: FAMILY HISTORY Problem Relation Age of Onset None Brother None Sister None Brother Medications: Current Outpatient Medications Medication Sig traZODone (DESYREL) 50 mg tablet Take 1 tablet by mouth at bedtime as needed for sedation. blood sugar diagnostic ([employer]TOUCH ULTRA TEST) test strip Test blood sugar [...] May have so (more content not included)... [facility] 09-19-2024 History of Present illness Narrative Radiology Service Progress Note PATIENT NAME: Yuusf Medina DATE OF SERVICE: September 19, 2024 [...] PATIENT PRESENTS WITH AN IMPLANTABLE OR ATTACHED KILN BURNER HELPER: No RADIOLOGY DEPARTMENT: General X-ray: Exam(s) Completed: Lower Extremity X-Ray(s): Foot, Right and Wt. Bearing and Heel, Right and Wt. Bearing PERIPHERAL IV DATA: Not applicable SIGNED BY: RUT Hui September 19, 2024 2:13 PM documented in this encounter [facility] 09-19-2024 Note HNO ID: [id number] Author: ZAID KUHN CT Service: Radiology Author [...] PATIENT PRESENTS WITH AN IMPLANTABLE OR ATTACHED KILN BURNER HELPER: No RADIOLOGY DEPARTMENT: General X-ray: Exam(s) Completed: Lower Extremity X-Ray(s): Foot, Right and Wt. Bearing and Heel, Right and Wt. Bearing PERIPHERAL IV DATA: Not applicable SIGNED BY: RUT Hui September 19, 2024 2:13 PM [facility] 09-18-2024 Telephone encounter Note Results were reviewed. I spoke with lczpwm-bx-ide Demetria about suspicion for calcaneal bone fracture. Orders Signed This Visit (1) CONSULT PANEL TO ORTHOPAEDICS STAT, Dx: 1. Right ankle swelling 2. Closed nondisplaced fracture of right calcaneus, unspecified portion of calcaneus, initial encounte Grupo Mendez MD September 18, 2024 9:19 PM [facility] 09-18-2024 Miscellaneous Notes Results were reviewed. I spoke with drovdd-hr-yme Demetria about suspicion for calcaneal bone fracture. Orders Signed This Visit (1) CONSULT PANEL TO ORTHOPAEDICS STAT, Dx: 1. Right ankle swelling 2. Closed nondisplaced fracture of right calcaneus, unspecified portion of calcaneus, initial encounte Grupo Mendez MD September 18, 2024 9:19 PM documented in this encounter [facility] 09-18-2024 History of Present illness Narrative [...] PATIENT PRESENTS WITH AN IMPLANTABLE OR ATTACHED KILN BURNER HELPER: No RADIOLOGY DEPARTMENT: Ultrasound PERIPHERAL IV DATA: Not applicable SIGNED BY: Christina Tucker RDMS September 18, 2024 8:37 AM documented in this encounter [facility] 09-18-2024 Note [facility] 09-17-2024 Telephone encounter Note This was addressed in hematology appointment in [place]. Closing this encounter [facility] 09-17-2024 Miscellaneous Notes This was addressed in hematology appointment in [place]. Closing this encounter Electronically signed by [facility] Keke Mckinney RN at 09/17/2024 4:23 PM EST left for patient's son. She has an appointment today in [place]-can Yusuf go to express care there after hematology? Electronically signed by [facility] Keke Mckinney RN at 09/17/2024 10:23 AM EST documented in this encounter [facility] 09-17-2024 Instructions Grupo Mendez MD - 09/17/2024 3:52 PM EST Please schedule Xray right ankle today Please schedule STAT US DVT right lower leg tomorrow Please send patient to lab today For scheduling questions, please call [phone] (tests and appointments). Ask for the oncology senior master scheduler. For symptom management or care coordination questions, please call Renetta Holder at [phone] or use my chart to reach us. After hours with medical questions, please call the doctor on-call at [phone]. Thank you, Grupo Mendez MD documented in this encounter [facility] 09-17-2024 History of Present illness Narrative Consultation requested by Dr. Migdalia Cramer for an opinion regarding leukocytosis. My final recommendations will be communicated back to the requesting physician by way of shared Medical record or letter to requesting physician via US mail. Presenting complaint: Patient Yusuf Medina was sent to my office to be evaluated for leukocytosis. ASSESSMENT: (D73.756) Leukocytosis, unspecified type (primary encounter diagnosis) Comment: [...] L REMV CATARACT EXTRACAP,INSERT LENS Bilateral [address] [facility] FAMILY HISTORY Problem Relation Age of [...] as needed for sedation. blood sugar diagnostic ([employer] TechnologiesUCH ULTRA TEST) test strip Test blood sugar [...] Range Status 09/17/2024 5.5 % Final Abs [place] Date Value Ref Range Status 09/17/2024 0.52 [...] Migdalia Ortiz MD documented in this encounter [facility] 09-17-2024 Note HNO ID: [id number] Author: GRUPO MENDEZ MD Service: ? Author [...] office to be evaluated for leukocytosis. ASSESSMENT: (L82.678) Leukocytosis, unspecified type (primary encounter diagnosis) Comment: [...] L REMV CATARACT EXTRACAP,INSERT LENS Bilateral [address] [facility] FAMILY HISTORY Problem Relation Age of [...] ONCE DAILY metFORMIN (more content not included)... [facility] 09-17-2024 Telephone encounter Note Vm left for patient's son. She has an appointment today in [place]-can Yusuf go to express care there after hematology? [facility] 09-13-2024 Note HNO ID: [id number] Author: MIGDALIA CRAMER MD Service: ? Author [...] panel in 6 months Migdalia Cramer MD [facility] 09-13-2024 History of Present illness Narrative [...] Migdalia Cramer MD documented in this encounter [facility] 09-13-2024 Instructions Migdalia Cramer MD - [...] review all the medicines you take, even rdkv-vmc-swnunqi medicines. As you get older, the way [...] certain medical conditions. documented in this encounter [facility] 09-04-2024 Telephone encounter Note Patient has been scheduled for 09/17 Thank you [facility] 09-04-2024 Miscellaneous Notes Patient has been scheduled for 09/17 Thank you Please contact the patient's dpecbo-gq-cbw Demetria at [phone] to assist with scheduling a consult with hematology/oncology for a high white blood cell count. I sent a MyCPentahot message today about test results: Rhys Castillo [...] recommend we get a consultation with a rehabilitation technician, a blood specialist. I put an order in for a consultation and will ask a senior master scheduler to contact you to get it set up. We just want to make sure there is nothing serious going on that we should be more concerned about. Migdalia Cramer MD documented in this encounter [facility] 09-04-2024 Telephone encounter Note Please contact the patient's pnpaah-dr-dei Demetria at [phone] to assist with scheduling a consult with hematology/oncology for a high white blood cell count. I sent a WeLiket message today about test results: Rhys Castillo [...] recommend we get a consultation with a rehabilitation technician, a blood specialist. I put an order in for a consultation and will ask a senior master scheduler to contact you to get it set up. We just want to make sure there is nothing serious going on that we should be more concerned about. Migdalia Cramer MD [facility] 08-22-2024 Telephone encounter Note Patients sister in law has been informed. Thank you [facility] 08-22-2024 Miscellaneous Notes Patients sister in [...] of the labs. documented in this encounter [facility] 08-21-2024 Telephone encounter Note Please let her know that Dr. Cramer is currently evaluating the lab results and will reach out to her as soon as he is able. He is currently out of the office. ,Willie Kaur APRN.CNP [facility] 08-21-2024 Telephone encounter Note The following approved medication requests have been transmitted electronically. Requested Prescriptions Signed Prescriptions Disp Refills blood sugar diagnostic (ONETOUCH ULTRA TEST) test strip 100 Strip 3 Sig: Test blood sugar once daily Authorizing Provider: WILLIE KAUR APRN.CNP [facility] 08-21-2024 Miscellaneous Notes The following approved [...] 2024 10:12 AM documented in this encounter [facility] 08-21-2024 Telephone encounter Note Patient has [...] Please review and advise. Jame Hernandez MA [facility] 08-21-2024 Telephone encounter Note Prescription Refill Information [...] Perla Perez August 21, 2024 10:12 AM [facility] 08-21-2024 Telephone encounter Note Patients sister in law called and wanted to discuss the results of the labs. [facility] 08-14-2024 History of Present illness Narrative Yusuf [...] COMBINE WITH DICLOFENAC GEL blood sugar diagnostic ([employer] TechnologiesUCH ULTRA TEST) test strip Test blood sugar [...] a long period of time Willie Kaur APRN.BENEFITS SPECIALIST RECRUITER I have personally performed a lqwb-cb-gqcu evaluation on this patient. I have reviewed [...] Migdalia Cramer MD documented in this encounter [facility] 08-14-2024 Note HNO ID: [id number] Author: MIGDALIA CRAMER MD Service: ? Author [...] swelling or eryt (more content not included)... [facility] 08-13-2024 Note SARS-COV-2 (AGENT OF COVID-19) RNA: Not detected INFLUENZA A RNA: Not detected INFLUENZA B RNA: Not detected RESPIRATORY SYNCYTIAL VIRUS (RSV) RNA: Not detected [facility] Comment on above: Performed By: #### 9 [id number] ####[facility] LABORATORYCLIA [id number] [address] [facility] 08-13-2024 Telephone encounter Note Called sister in law who is with the patient, patient is Barbadian speaking. ? Blood sugar-patient checks every am, did not do today and is not understanding that sister in law would like her to check it now. She did eat this morning Falls recently Concern based on pill box that she may have taken a days Sister-in -law is in agreement that patient needs to be seen in an emergency room-[place] is close. Reason for Disposition [1] Drinking very little AND [2] dehydration suspected (e.g., no urine > 12 hours, very dry mouth, very lightheaded) Answer Assessment - Initial Assessment Questions 1. DESCRIPTION: Describe how you are feeling. Patient speaks Barbadian, Sister-in -law is there with her. Patient [...] pain) no Protocols used: Weakness (Generalized) and Vetycrv-CIYMW-KX [facility] 08-13-2024 Miscellaneous Notes Called sister in law who is with the patient, patient is Barbadian speaking. ? Blood sugar-patient checks every am, did not do today and is not understanding that sister in law would like her to check it now. She did eat this morning [place] recently Concern based on pill box that she may have taken a days Sister-in -law is in agreement that patient needs to be seen in an emergency room-[place] is close. Reason for Disposition [1] Drinking very little AND [2] dehydration suspected (e.g., no urine > 12 hours, very dry mouth, very lightheaded) Answer Assessment - Initial Assessment Questions 1. DESCRIPTION: Describe how you are feeling. Patient speaks Barbadian, Sister-in -law is there with her. Patient [...] pain) no Protocols used: Weakness (Generalized) and Iwlaoaa-RNPUZ-QJ Patient's caregiver Demetria spoke with the patient [...] seen today. Demetria can be reached at [phone]. documented in this encounter [facility] 08-13-2024 Telephone encounter Note Patient's caregiver [...] seen today. Demetria can be reached at [phone]. [facility] 08-10-2024 Telephone encounter Note The following approved medication requests have been transmitted electronically. Requested Prescriptions Signed Prescriptions Disp Refills glipiZIDE (GLUCOTROL XL) 2.5 mg 24 hr tablet 90 tablet 3 Sig: TAKE 1 TABLET BY MOUTH ONCE DAILY Authorizing Provider: WILLIE KAUR APRN.DRAKE [facility] 08-10-2024 Miscellaneous Notes The following approved [...] Sandrita Christianson LPN documented in this encounter [facility] 08-10-2024 Telephone encounter Note Patient has [...] Please review and advise. Sandrita Christianson LPN [facility] 07-19-2024 Telephone encounter Note The following [...] BEING SHIPPED Authorizing Provider: WILLIE KAUR APRN.CNP [facility] 07-19-2024 Miscellaneous Notes The following approved [...] KAUR APRN.CNP Short term supply to [facility], vermin exterminator to [facility] per message below. [...] 2024 9:49 AM documented in this encounter [facility] 07-19-2024 Telephone encounter Note [facility] term supply to [facility], vermin exterminator to [facility] pharmacy per message below. [facility] 07-19-2024 Telephone encounter Note Prescription Refill [...] Perla Perez July 19, 2024 9:49 AM [facility] 07-12-2024 Instructions Migdalia Cramer MD - 07/12/2024 9:56 AM EDT Try drinking 1 Glucerna a day to get some extra calories. I don't want you to continue to lose weight. Take all medications exactly as prescribed. Please have labs done again in late August. Keep appointment scheduled for 09/13/24 for Medicare Annual Wellness Visit. documented in this encounter [facility] 07-12-2024 Note HNO ID: [id number] Author: MIGDALIA CRAMER MD Service: ? Author [...] of keeping this visit Migdalia Cramer MD [facility] 07-12-2024 History of Present illness Narrative [...] Migdalia Cramer MD documented in this encounter [facility] 05-23-2024 Telephone encounter Note Patient has [...] Please review and advise. Sandrita Christianson LPN [facility] 05-23-2024 Miscellaneous Notes Patient has been [...] only has 2 pills left Perla Bang [facility] May 23, 2024 10:28 AM documented in this encounter [facility] 05-23-2024 Telephone encounter Note Prescription Refill [...] only has 2 pills left Perla Bang [facility] May 23, 2024 10:28 AM [facility] 04-26-2024 Telephone encounter Note Scheduled for Medicare AWV 09/13/24 Has lab orders The following approved medication requests have been transmitted electronically. Requested Prescriptions Signed Prescriptions Disp Refills pioglitazone (ACTOS) 45 mg tablet 90 tablet 3 Sig: Take 1 tablet by mouth once daily. Authorizing Provider: MIGDALIA CRAMER MD [facility] 04-26-2024 Miscellaneous Notes Scheduled for Medicare [...] Jame Hernandez MA documented in this encounter [facility] 04-26-2024 Telephone encounter Note Patient has [...] Please review and advise. Jame Hernandez MA [facility] 04-16-2024 Telephone encounter Note Spoke with Demetria caldwell and explained that her current Rx is for Glipizide/Glucotrol 2.5 mg once daily - not for Glyburide. Verbalized understanding. No further questions. [facility] 04-16-2024 Miscellaneous Notes Spoke with Demetria caldwell and explained that her current Rx is for Glipizide/Glucotrol 2.5 mg once daily - not for Glyburide. Verbalized understanding. No further questions. 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 Please advise [facility] 03-21-2024 History of Present illness Narrative [...] its relevant components. documented in this encounter [facility] 03-13-2024 History of Present illness Narrative [...] POPULATION HEALTH NAVIGATION OUTREACH Action/FYI Spoke with nhhxmi-jz-qkq Demetria. Patient is on [facility] for the following HM care gaps: Schedule [...] with ADITI CAMARGO HFU pseudogout 07/12/2024 in [facility] with MIGDALIA CRAMER - Follow Up, HCC Gap Closure 09/13/2024 in [facility] with MIGDALIA CRAMER - AWV Due HCC related Navigation Signature: Lien Rutledge MA March 13, 2024 2:52 PM documented in this encounter [facility] 02-28-2024 Miscellaneous Notes The following approved medication requests have been transmitted electronically. Requested Prescriptions Signed Prescriptions Disp Refills lansoprazole (PREVACID) 30 mg capsule 90 capsule 3 Sig: Take 1 capsule by mouth once daily. Authorizing Provider: WILLIE KAUR APRN.BENEFITS SPECIALIST RECRUITER Order pended for mail Last OV-04/23/2023 [facility] Next OV-none Shovel Mechanic is calling ,asking for a refill on the following medications . pravastatin (PRAVACHOL) 20 mg tablet 90 tablet 3 10/23/2022 10/23/2023 Sig: Take 1 tablet by mouth once daily. Sent to pharmacy as: pravastatin (PRAVACHOL) 20 mg tablet Class: Normal Route: ORAL Order: [id number] E-Prescribing Status: Receipt confirmed by pharmacy (10/23/2022 9:10 AM EST) She doesn't have many left , they are asking for this fill to be sent to the [facility] . Then if she gets refills send it to the mail in pharmacy . Please advise and route back so we can make resource conservation manager aware . Thanks documented in this encounter [facility] 02-01-2024 Miscellaneous Notes The following approved medication requests have been transmitted electronically. Requested Prescriptions Signed Prescriptions Disp Refills lisinopril-hydroCHLOROthiazide (ZESTORETIC) 20-25 mg per tablet 90 tablet 3 Sig: TAKE 1 TABLET BY MOUTH ONCE DAILY Authorizing Provider: WILLIE KAUR APRN.CNP documented in this encounter [facility] 02-01-2024 Miscellaneous Notes The following approved medication requests have been transmitted electronically. Requested Prescriptions Signed Prescriptions Disp Refills amLODIPine (NORVASC) 5 mg tablet 90 tablet 3 Sig: TAKE 1 TABLET BY MOUTH ONCE DAILY Authorizing Provider: WILLIE KAUR APRN.CNP documented in this encounter [facility] 01-24-2024 Miscellaneous Notes Contacted the caregiver stated the patient car pick up driver the prescription. Request denied no further action needed. 7 day short term Rx sent to [facility] on 01/11/24. 1 year vermin exterminator Rx sent to [facility] on 01/11/24. Please call to clarify [...] mg tablet Class: Normal Route: ORAL Order: [id number] E-Prescribing Pt states she is completely out and mail order has not come in would like a short supply sent to [facility] documented in this encounter [facility] 01-11-2024 Miscellaneous Notes The following approved [...] for temporary supply to be sent to [facility] while they wait for [facility] for 90 day supply. Please review and advise. Jame Hernandez MA Yusuf Medina called today. Reason : Yusuf resource conservation manager is calling today , she states the [...] mg tablet Class: Normal Route: ORAL Order: [id number] E-Prescribing Status: Receipt confirmed by pharmacy (10/14/2023 2:49 PM EST) Please advise and route back so caregiver can be updated . Thanks documented in this encounter [facility] 10-14-2023 Miscellaneous Notes The following approved [...] also needs an emergency script sent to [facility] [address] in [place]. Patient has been identified by name and date of : Yes Requested Prescriptions Pending Prescriptions Disp Refills metFORMIN (GLUCOPHAGE) 850 mg tablet 180 tablet 3 Sig: Take 1 tablet by mouth two times a day with meals. RX INSTRUCTIONS: Patient aware RX escripted to mail away pharmacy. No need to notify patient. Dinora Perez documented in this encounter [facility] 09-06-2023 Miscellaneous Notes The following approved [...] Jame Hernandez MA documented in this encounter [facility] 08-31-2023 Miscellaneous Notes Called the number on the chart and confirmed with resource conservation manager that the medication has been sent as [...] that 1 year supply was sent to [facility] pharmacy on 06/02/23. Demetria states that's the problem, all her medications need to go through mail order as her insurance will not cover medications sent to [facility]. Informed her that will send high priority to provider to send short term supply of medication to pharmacy today so it can be picked up and vermin exterminator supply to be sent through mail order. Demetria agreeable and verbalized understanding. Please advise Thank you! Please call to review with Demetria the pharmacy issue for patient's Glipizide. She is asking for a call today as the patient has 1 left. documented in this encounter [facility] 06-23-2023 Miscellaneous Notes The following approved [...] Laura Hay Pss documented in this encounter [facility] 06-03-2023 Miscellaneous Notes Called and left VM. Morro Tomas, Patient Trestle Mechanic 1st attempt Lvm , will try again [...] would like the medication sent to the [facility] Pharmacy [address] [place] [id number] Leanne Ding documented in this encounter [facility] 05-12-2023 Miscellaneous Notes 7.6 (03/08/2023) documented in this encounter [facility] 04-28-2023 History of Present illness Narrative [...] Care Gap or Scheduling/Wellness visits Payer: Payor: [facility] MEDICARE / Plan: [facility] MEDICARE ADVANTAGE PPO / Product Type: PPO [...] 2023 12:52 PM documented in this encounter [facility] 04-20-2023 Miscellaneous Notes Contacted patient's caregiver [...] glucometer as needed Authorizing Provider: WILLIE KAUR APRN.BENEFITS SPECIALIST RECRUITER Contacted patient's caregiver Demetria who states patient's blood sugar monitor is 10 or more years old and patient's blood sugar read 25, then it read in the 200's when re-checked it right after. Demetria wondering if patient's blood glucose monitor working correctly & if she needs a new one? Please advise Thank you Patient's resource conservation manager Demetria calling with a question for a nurse regarding the patient's blood glucose monitor. Please call. TY documented in this encounter [facility] 04-20-2023 Miscellaneous Notes Caregiver made aware [...] if ok. TY documented in this encounter [facility] 04-13-2023 Instructions Willie Kaur APRN.CNP - 04/13/2023 3:33 PM EDT CONTINUE Actos 45 mg once daily REDUCE DOSE Instead of 1000 mg Metformin twice daily, you should decrease dose to 850 mg twice daily START 2.5 mg Glipizide If you develop dizziness, light headedness, sweating, nausea, shakiness check your blood sugar to see if you are dropping too low documented in this encounter [facility] 04-13-2023 History of Present illness Narrative [...] diabetes. Demetria must come to act as foreman/project manager, they decline foreman/project manager. Patients last HgbA1C was Hemoglobin A1C (%) Date Value 03/08/2023 7.6 10/21/2022 7.5 04/27/2022 7.1 10/12/2021 7.4 09/10/2020 6.7 01/24/2020 6.8 ). Last BP 04/13/23 : 125/63 03/29/23 : 150/71 03/17/23 : 146/67 CKD3 Creatinine Date Value Ref Range Status 03/09/2023 0.92 0.58 - 0.96 mg/dL Final Demetria as foreman/project manager Declines [facility] foreman/project manager Current Outpatient Medications on File Prior to [...] mellitus, non-insulin dependent (NIDDM or type II) ([facility]) - ICD9: 250.00, ICD10: E11.9 (primary diagnosis) [...] diabetes. Demetria must come to act as foreman/project manager, they decline foreman/project manager. - GLIPIZIDE ER 2.5 MG TABLET, EXTENDED RELEASE 24 HR 2. CKD stage 3 due to type 2 diabetes mellitus (HCC) - ICD9: 250.40, 585.3, ICD10: E11.22, N18.30 - Stable Willie Kaur APRN.BENEFITS SPECIALIST RECRUITER documented in this encounter [facility] 03-29-2023 Instructions Willie Kaur APRN.BENEFITS SPECIALIST RECRUITER - 03/29/2023 3:50 PM EDT Check blood sugar once per day Tuesday - check in morning Tuesday - check in evening Tuesday - check in morning Tuesday - check in evening - check in morning Tuesday - check in evening Tuesday - check in morning documented in this encounter [facility] 03-29-2023 History of Present illness Narrative SUBJECTIVE: Yusuf Medina is a 87 year old female who presents for 2 week evaluation and treatment of DM Sister in law Augustin acts as foreman/project manager, declines phone foreman/project manager 03/17/23 Family Medicine office visit Sister in [...] BY MOUTH ONCE DAILY blood sugar diagnostic ([employer]TOUCH ULTRA TEST) test strip Test blood sugar [...] months - METFORMIN 1,000 MG TABLET - [employer]TOUCH ULTRA TEST STRIPS - BASIC METABOLIC PNL 2. Essential hypertension - ICD9: 401.9, ICD10: I10 - Fair control 3. CKD stage 3 due to type 2 diabetes mellitus (HCC) - ICD9: 250.40, 585.3, ICD10: E11.22, N18.30 - Check kidney function one month after increased dose Metformin. Keep close eye on kidney function - BASIC METABOLIC PNL Willie Kaur APRN.CNP documented in this encounter [facility] 03-24-2023 Miscellaneous Notes Called caregiver and [...] Please review and advise. Demetria is calling Migdalai Cramer MD today with concern regarding Patient Update (Medication update on how it is working with the change in medication -please call her caregiver Demetria )she would like office to call her back at [phone] as soon as possible. Patient has been identified by name and birthdate. Duration of symptoms: N/A Person calling: caregiver: Demetria Call patient at: at home [phone] (home) [phone] (cell) Was an appointment scheduled: No Closing statement: Results or non-symptom based questions: Thank you for calling [facility], your call will be returned within the next business day. Laura Hay Pss documented in this encounter [facility] 03-22-2023 Miscellaneous Notes Spoke with patient's caregiver, Demetria. Documented in nurse triage encounter from 03/18/23. Patient caregiver called back.She would like a call back at [phone] Thanks Left message to call the office back, may speak with any available triage nurse. Gabbie Melchor RN Demetria is calling on behalf of Yusuf. She has blood sugars readings to give and would like to speak to a nurse with the readings and any changed to meds. Please call her at [phone] documented in this encounter [facility] 03-17-2023 History of Present illness Narrative [...] Lymph 1.00 - 4.00 k/uL 0.71 (L) [place]% % 5.7 Abs [place] <0.87 k/uL 0.99 (H) Eosin% % 0.7 [...] Demetria prefers to not drive to [address] [place] so she will try to reschedule this. - CONSULT TO CLINICAL PROGRAMMER 3. Leukocytosis, unspecified type - ICD9: 288.60, ICD10: D72.829 - Resolved 4. Type 2 diabetes mellitus with stage 3 chronic kidney disease, without long-term current use of insulin ([facility]) - ICD9: 250.40, 585.3, ICD10: E11.22, N18.30 [...] 2023 2:20 PM documented in this encounter [facility] 03-10-2023 History of Present illness Narrative Noted Willie Kaur APRN.CNP TCM Home Visit Referral Source of Stratification: TCM [facility] Admission Status: Discharged Readmission Risk Score: [...] Network Status: In-Network Discharge Pt discharged from [facility] on 03[facility]09[facility]23. Admitted for: Arthalgia Contact made with patient: Yes Hi my name is Lien Hankins RN and I am calling from the [facility] on behalf of your PCP, Migdalia [...] like to speak with a social work steam fitter helper to help give you support for any [...] I will send your request to a senior master scheduler who will contact and assist you [...] Ordered -: No documented in this encounter [facility] 03-07-2023 History of Past i llness [...] of this encounter (statuses as of 03/10/2023) [facility] History of Past illness Narrative* Problem [...] of this encounter (statuses as of 03/19/2023) [facility] History of Past illness Narrative* Problem [...] of this encounter (statuses as of 03/23/2023) [facility] History of Past illness Narrative* Problem [...] of this encounter (statuses as of 03/24/2023) [facility] History of Past illness Narrative* Problem [...] of this encounter (statuses as of 03/30/2023) [facility] History of Past illness Narrative* Problem [...] morphine pump implantation while inpatient, but Dr. Martnies prefers to allow Anesthesia Pain service to [...] share their concern. -I spoke with Guillaume Fernanod in Social Work and he is going [...] of this encounter (statuses as of 04/14/2023) [facility] History of Past illness Narrative* Problem [...] of this encounter (statuses as of 04/20/2023) [facility] of Past illness Narrative* Problem [...] of this encounter (statuses as of 04/20/2023) [facility] History of Past illness Narrative* Problem [...] of this encounter (statuses as of 04/28/2023) [facility] of Past illness Narrative* Problem [...] of this encounter (statuses as of 05/16/2023) [facility] History of Past illness Narrative* Problem [...] of this encounter (statuses as of 06/15/2023) [facility] History of Past illness Narrative* Problem [...] of this encounter (statuses as of 06/23/2023) [facility] of Past illness Narrative* Problem [...] of this encounter (statuses as of 08/31/2023) [facility] History of Past illness Narrative* Problem [...] of this encounter (statuses as of 09/06/2023) [facility] History of Past illness Narrative* Problem [...] of this encounter (statuses as of 10/14/2023) [facility] History of Past illness Narrative* Problem [...] of this encounter (statuses as of 01/12/2024) [facility] History of Past illness Narrative* Problem [...] of this encounter (statuses as of 01/24/2024) [facility] History of Past illness Narrative* Problem [...] of this encounter (statuses as of 02/01/2024) [facility] History of Past illness Narrative* Problem [...] of this encounter (statuses as of 02/01/2024) [facility] History of Past illness Narrative* Problem [...] of this encounter (statuses as of 02/29/2024) [place] [address]-11-2023 Miscellaneous Notes* Telephone Encounter - Ok King [...] advise. Jame Hernandez MA documented in this encounter[facility] Miscellaneous Notes* Telephone Encounter - Willie [...] Allergies: Patient has no known allergies. (home) [phone] (cell) Reason for call: patient needs a refill on the following medications Disp Refills Start End blood sugar diagnostic (ONETOUCH ULTRA BLUE TEST STRIP) test strip 300 Strip 3 2019 Sig: USE DIRECTED TO TEST BLOOD SUGARS 3 TIMES A DAY Sent to pharmacy as: blood sugar diagnostic (ONETOUCH ULTRA BLUE TEST STRIP) test strip Class: Normal Order: [id number] E-Prescribing Status: Receipt confirmed by pharmacy (2019 10:20 AM EST) Please advise and make patient aware Thanks documented [facility] Miscellaneous Notes* Telephone Encounter - Willie [...] advise. Sandrita Christianson LPN documented in this encounter[facility] History of Present illness Narrative* Migdalia [...] follow-up. Migdalia Cramer MD documented in this encounter[facility] Miscellaneous Notes* Telephone Encounter - Willie [...] advise. Sandrita Christianson LPN documented in this encounterPark[facility] Miscellaneous Notes* Telephone Encounter - Willie [...] advise. Sandrita Christianson LPN documented in this encounterPark[facility] Miscellaneous Notes* Telephone Encounter - Agustina [...] she only wants 14 days to local [facility] - I made a copy and corrected the amount. Then I entered her request for the mail order going to [facility]. Each is assigned to the correct Pharmacy . Patient aware RX will be sent to pharmacy. Please call Demetria once sent at [phone]. Jodi Perez documented in this encounterPark[facility]07[facility] Miscellaneous Notes* Telephone Encounter - Willie [...] his note. They should be able to car pick up driver a kit form [facility] lab. He also asked them to consider a diagnostic colonoscopy, which is not Cologuard. Willie Kaur APRN.CNP * Telephone Encounter - Sandrita Christianson LPN - 06/10/2022 9:56 AM EDT Fax received from [employer] that pt has not completed Cologuard that was ordered on 04/08/22. Fax scanned into pt's chart (according to chart, pt had diag occult blood exam on 04/27/22) Please advise Thank you documented in this encounterPark[facility]07[facility]22 Miscellaneous Notes* Telephone Encounter - Willie [...] she does not have any glipizide left? Shovel Mechanic then proceeded to ask questions regarding pioglitazone-is [...] send Short term supply of Glipizide to [facility]- [address] (pended for provider). * Telephone Encounter - Sandrita Christianson LPN - 05/28/2022 9:24 AM EDT PSS received call from pt's resource conservation manager Demetria. Pt informed Demetria that she is [...] will call our office. documented in this encounterPark[facility] History of Present illness Narrative* Migdalia [...] daily meds yet today Pt discharged from [facility] on 03/29/22. Admitted for: Pain in arms and legs with elevated white count and urinary tract infection Admitted to [facility] 03/23-03/26 and 03/26-03/29 (pain worsened and [...] BY MOUTH ONCE DAILY blood sugar diagnostic ([employer] UL[employer] BLUE TEST STRIP) test strip USE [...] Augustin Migdalia Cramer MD documented in this encounterPark[facility]06[facility] History of Present illness Narrative* Katia [...] in patient's care. Summary: Pt discharged from [facility] on 03/29/22. Admitted for: Pain in arms and legs with elevated white count and urinary tract infection Concerns: No concerns at this time. Customer Professional plan for next outreach: No further follow up needed at this time. TCM outreach complete. Signature Katia Farooq RN April 27, 2022 documented in this encounterPark[facility]06-[facility] Evaluation note* Diagnosis Hypertensive kidney disease with stage 3 chronic kidney disease, unspecified whether stage 3a or 3b CKD (HCC)- Primary documented in this encounter [facility]06-13-[facility]22 Miscellaneous Notes* Telephone Encounter - Cheryl [...] 4:28 PM EDT Call placed to pt's resource conservation manager, Demetria. Informed her of the 2 blood work orders to have completed, & that pt [facility] when she goes for lab draw. Demetria also confirmed that they Did car pick up driver IFOBT but pt Having trouble going to [...] PA-C * Telephone Encounter - Irene [facility]ois [facility] - 04/26/2022 9:37 AM EDT Patient caregiver Demetria calling to ask about the lab order in patient chart regarding the follow up urine. She states patient received a bottle for her to hand carry her urine, is that correct? Or is it to be done when [facility]? And exactly [facility] Demetria states when patient came in for labs she was told there were no orders and she does not want that to happen again. Call caregiver Demetria to discuss at [phone] documented in this encounterPark[facility]05[facility] Miscellaneous Notes* Telephone Encounter - Sandrita Christianson LPN - 04/08/2022 1:25 PM EDT Pt's POA/resource conservation manager Demetria notified & had no questions/concerns. * Telephone Encounter - Willie Kaur APRN.CNP - 04/08/2022 11:47 AM EDT Please notify patient that Cologuard has been ordered and [employer] will reach out toconfirm mailing address. Willie Mitsch, LEASE ANALYST.BENEFITS SPECIALIST RECRUITER * Telephone Encounter - Yeimy Dubon - 04/08/2022 10:37 AM EDT Patient's resource conservation manager, Demetria is calling requesting the Cologuard kit. She is asking for the kit or prescription for the kit. Please return call at [phone] documented in this encounterPark[facility] Instructions* Patient Instructions* Migdalia Cramer MD [...] of March. Consider colonoscopy. documented in this encounterParkview Health [facility]05-21-[facility]22 History of Present illness Narrative* Migdalia [...] review completed Yes SUMMARY: Pt discharged from [facility] on 03/29/22. Admitted for: Pain in arms and legs with elevated white count and urinary tract infection Admitted to [facility] 03/23-03/26 and 03/26-03/29 (pain worsened and [...] of the right femoral acetabular joint with [id number] contact, subchondral sclerosis and marginal osteophytosis. Left [...] 04/03/2022 8:06 AM EDT documented in this encounterParkview [facility]05-17-[facility]22 Miscellaneous Notes* Telephone Encounter - Willie [...] up Willie Kaur APRN.CNP documented in this encounterParkview Health [facility]05-17-2022 Miscellaneous Notes* Telephone Encounter - Willie Kaur APRN.CNP - 03/30/2022 10:53 AM EDT Noted and agree with OV Willie Kaur APRN.CNP * Telephone Encounter - Magnolia Johnson RN - 03/30/2022 10:17 AM EDT Spoke with patients medicare biller Demetria. She had questions for the doctor [...] pain (volearen gel and lidocaine patches) and medicare biller is not sure how long she should be using those (advised for now to continue until follow up appointment) Offered several appointments this week but her medicare biller Demetria is having trouble getting her to [...] Assessment Questions Recently in the hospital. Pt medicare biller wanted a follow up to discuss med changes and how to help with her pain more vermin exterminator. Protocols used: INFORMATION ONLY CALL - NO [id number] * Telephone Encounter - Cinthia ZANA Guaman - 03/30/2022 9:16 AM EDT This morning Yusuf caregiver called with some concerns . She has had the patient in the ER two times in the last few days. She is experiencing all over painand would like more suggestions on how to help the patient . Please Advise Thanks documented in this encounterParkview Health [facility]05-14-[facility] History of Past illness Narrative* Problem [...] of this encounter (statuses as of 03/30/2022) [facility] of [facility] illness Narrative* Problem [...] of this encounter (statuses as of 03/30/2022) [facility] of [facility] illness Narrative* Problem [...] of this encounter (statuses as of 04/03/2022) [facility] of [facility] illness Narrative* Problem [...] of this encounter (statuses as of 04/08/2022) [facility] of [facility] illness Narrative* Problem [...] of this encounter (statuses as of 04/26/2022) [facility] Narrative* Problem [...] of this encounter (statuses as of 04/27/2022) [facility] Narrative* Problem [...] of this encounter (statuses as of 05/08/2022) [facility] of Past illness Narrative* Problem [...] of this encounter (statuses as of 05/28/2022) [facility] of [facility] illness Narrative* Problem [...] morphine pump implantation while inpatient, but Dr. Matrines prefers to allow Anesthesia Pain service to treat her pain while inpatient with plan for pump implantation as outpatient. Tentatively planning for pump implantation on October 01, 2015. Neurosurgery would like patient to follow-up with Anesthesia Chronic Pain in outpatient setting. Appointment ordered (scheduled for 09/05/15 at 08:40am C25). -Greatly appreciate Serenity's recs from Chronic Pain service -Patient's niece and POA Larua called Dr. Martines on 08/26/2015 to get [...] of this encounter (statuses as of 06/11/2022) [facility] of [facility] illness Narrative* Problem [...] of this encounter (statuses as of 08/18/2022) [facility] illness Narrative* Problem [...] of this encounter (statuses as of 09/30/2022) [facility] Narrative* Problem [...] of this encounter (statuses as of 10/04/2022) [facility] Narrative* Problem [...] of this encounter (statuses as of 11/15/2022) [facility] Narrative* Problem [...] of this encounter (statuses as of 12/28/2022) [facility] Narrative* Problem [...] of this encounter (statuses as of 01/20/2023) [facility] Narrative* Problem [...] of this encounter (statuses as of 02/22/2023) [facility] Miscellaneous Notes* Telephone Encounter - Willie Kaur APRN.[facility] - 03/25/2022 11:55 AM EDT The following [...] 03/23/2022 10:18 AM EDT Pharmacy verified in [facility] Patient has been identified by name [...] Please advise. Aditi Perez documented in this encounterParkview Health [facility]05-09-2022 Miscellaneous Notes* Telephone Encounter - Willie [...] and advise. Sangita Herring [place] encounter[place] [address]-15-2022 Miscellaneous Notes* Telephone Encounter - Agustina Hernandez [...] as discontinued. Please review and advise at [phone]. documented in this encounterParkview Health [facility]02-22-2022 Miscellaneous Notes* Telephone Encounter - Lucinda [...] sent to the pharmacy. Please call patient's resource conservation manager at [phone] Daniel Holder documented in this encounterParkview Health [facility]01-24-2022 NoteHome care referral received for patient. Attempted to reach via telephone, however no answer. Voicemail left for return call. [facility]01-21-2022 [facility] CONSULTATION YUSUF MEDINA CCE [id number] ICU NIGHAT PENNY MD [id number] REFERRING PHYSICIAN: CONSULTING PHYSICIAN: Gertrudis Beckford DO DATE OF CONSULTATION: 12/04/2021 CHIEF COMPLAINT: Status post fall. HISTORY OF PRESENT ILLNESS: This 85-year-old [place] woman was taking care of her 16 [...] 2 diabetes. 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 She had fallen. It is unknown [...] levels of other ser (more content not included)...[facility]01-20-2022 NotePatient: YUSUF MEDINA Age: 85 [...] unknown mechanism, hypothermia Plan: warm, CT eval [facility]08-31-2021 History of Present illness Narrative* Giovanny Salmon [...] IV DATA: Not applicable SIGNED BY: RT Judith(Kenna) July 14, 2021 9:01 AM documented in this encounterParkview [facility]07-12[facility] History of Past illness Narrative* Problem [...] of this encounter (statuses as of 02/18/2022) [facility] of Past illness Narrative* Problem [...] of this encounter (statuses as of 02/26/2022) [facility] of Past illness Narrative* Problem [...] of this encounter (statuses as of 03/22/2022) [facility] of Past illness Narrative* Problem [...] of this encounter (statuses as of 03/25/2022) [facility]* Diagnosis Type 2 diabetes mellitus with stage 3 chronic kidney disease, without long-term current use of insulin (HCC) DDD (degenerative disc disease), cervical Degeneration of cervical intervertebral disc [facility] [facility] Diagnosis DDD (degenerative disc disease), cervical Degeneration of cervical intervertebral disc [facility] Diagnosis Essential hypertension Unspecified essential hypertension [facility] Diagnosis Acute cystitis without [...] not elsewhere classified [facility] Diagnosis Screening for colon cancer- Primary Special screening for malignant neoplasms, colon documented [facility] Diagnosis Iron deficiency anemia, unspecified iron deficiency anemia type- Primary [facility] Diagnosis Iron deficiency anemia, [...] kidney disease (HCC) documented [facility] Diagnosis Gastroesophageal reflux disease without esophagitis Esophageal reflux [facility] Diagnosis Type 2 diabetes mellitus with stage 3 chronic kidney disease, without long-term current use of insulin (HCC) [facility] Diagnosis Diabetes mellitus, non-insulin [...] diabetes mellitus (HCC) documented [facility] Diagnosis Diabetes mellitus, non-insulin dependent (NIDDM or type II) (HCC)- Primary [facility] Diagnosis Essential hypertension Unspecified essential hypertension [facility] Diagnosis Pain in both hands- Primary Pain in both wrists Pain in joint, forearm Leukocytosis, unspecified type Type 2 diabetes mellitus with stage 3 chronic kidney disease, without long-term current use of insulin, unspecified whether stage 3a or 3b CKD (HCC) Muscular deconditioning Muscular wasting and disuse atrophy, not elsewhere classified [facility] Diagnosis Diabetes mellitus, non-insulin dependent (NIDDM or type II) (HCC)- Primary Essential hypertension Unspecified essential hypertension CKD stage 3 due to type 2 diabetes mellitus (HCC) documented [facility] Diagnosis Diabetes mellitus, non-insulin dependent (NIDDM or type II) (HCC)- Primary CKD stage 3 due to type 2 diabetes mellitus (HCC) documented [facility] Diagnosis Diabetes mellitus, non-insulin dependent (NIDDM or type II) (HCC) [facility] Diagnosis Diabetes mellitus, non-insulin dependent (NIDDM or type II) (HCC) documented [facility] Diagnosis Gastroesophageal reflux disease without esophagitis Esophageal reflux [facility] Diagnosis Diabetes mellitus, non-insulin dependent (NIDDM or type II) (HCC)- Primary [facility] Diagnosis Diabetes mellitus, non-insulin dependent (NIDDM or type II) (HCC) documented [facility] Diagnosis Essential hypertension Unspecified essential hypertension [facility] Diagnosis Essential hypertension Unspecified essential hypertension [facility] Diagnosis Gastroesophageal reflux disease without esophagitis Esophageal reflux documented [facility] Diagnosis Diabetes mellitus, non-insulin dependent (NIDDM or type II) (HCC)- Primary Hyperlipidemia associated with type 2 diabetes mellitus (HCC) (HCC) Essential hypertension Unspecified essential hypertension [facility] Diagnosis Type 2 diabetes mellitus without retinopathy (HCC)- Primary Type II or unspecified type diabetes mellitus without mention of complication, not stated as uncontrolled Pseudophakia Lens replaced by other means documented [facility] Diagnosis Type 2 diabetes mellitus with stage 3 chronic kidney disease, without long-term current use of insulin (HCC) documented [facility] Diagnosis Diabetes mellitus, non-insulin dependent (NIDDM or type II) (HCC) documented [facility] Diagnosis Essential hypertension- Primary [...] deficiency anemia type documented [facility] Diagnosis Essential hypertension Unspecified essential hypertension [facility] Diagnosis Generalized weakness- Primary Other malaise and fatigue Headache, unspecified headache type Leukocytosis, unspecified type CKD stage 3 due to type 2 diabetes mellitus (HCC) Normocytic anemia Anemia, unspecified Essential hypertension Unspecified essential hypertension Insomnia Insomnia, unspecified Arthralgia, unspecified joint [facility] Pain Generalized pain [facility] Diagnosis Leukocytosis, unspecified type- Primary [facility] Diagnosis Right ankle swelling Effusion of ankle and foot joint [facility] Diagnosis Right ankle swelling- Primary Effusion of ankle and foot joint Closed nondisplaced fracture of right calcaneus, unspecified portion of calcaneus, initial encounter [facility] Diagnosis Right ankle swelling Effusion of ankle and foot joint [facility] Diagnosis Pain in joint involving right ankle and foot [facility] Diagnosis Right ankle swelling Effusion of ankle and foot joint Closed nondisplaced fracture of right calcaneus, unspecified portion of calcaneus, initial encounter [facility] Diagnosis Leukocytosis, unspecified type- Primary Normocytic anemia Anemia, unspecified Right ankle swelling Effusion of ankle and foot joint Right ankle swelling Effusion of ankle and foot joint Right ankle swelling Effusion of ankle and foot joint [facility] Diagnosis Medicare annual wellness [...] Leukocytosis, unspecified type [facility] Diagnosis Right ankle swelling- Primary Effusion of ankle and foot joint Chronic pain of right ankle [facility] Diagnosis Right ankle swelling Effusion of ankle and foot joint [facility] Diagnosis Chronic pain of right ankle- Primary [facility] Diagnosis Normocytic anemia- Primary Anemia, unspecified Leukocytosis, unspecified type documented in this encounter [facility] note* Diagnosis Chronic pain of right ankle [facility] Diagnosis Essential hypertension Unspecified essential hypertension [facility]* Diagnosis 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)- Primary Ulcer of ankle [facility]* Diagnosis Pseudogout- Primary Other disorder of calcium metabolism Ankle swelling, right Medication monitoring encounter Encounter for therapeutic drug monitoring documented in this encounter [facility] note* Diagnosis Non-pressure chronic ulcer of [...] kidney disease (HCC) documented [facility] Diagnosis Pressure injury of right ankle, stage 3 (HCC)- Primary [facility]* Diagnosis Hyperlipidemia with target LDL less than 100 Other and unspecified hyperlipidemia documented in this encounter [facility] note* Diagnosis Leukocytosis, unspecified type- Primary Normocytic anemia Anemia, unspecified Vitamin B6 deficiency Cellulitis of right ankle documented in this encounter [facility] noteNo assessment information availableWCincinnati [facility] Work Phone: Evaluation note* Diagnosis 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)- Primary Ulcer of ankle documented in this encounter [facility] for referral (narrative)* Diagnostic Procedure Only (Routine) - Closed Specialty Diagnoses / Procedures Referred By Alisa t Referred To Contact XR IMAGING Diagnoses Pain Procedures XR SHOULDER GENERAL 3V OR MORE AP/TRUE AP/OTHER LT X-RAY SHOULDER COMPLET [place] [address] [place] [address] [place] [address] [place] [address] Referral ID Status Reason Start Date Expiration Date V isits Requested Visits Authorized [id number] Closed Auto-Generate d Referral 07/09/2021 08/08/2022 1 1 [facility] for referral (narrative)* Diagnostic Procedure Only (Routine) - Closed Specialty Diagnoses / Procedures Referred By Contac t Referred To Contact XR IMAGING Diagnoses Right ankle swelling Procedures XR ANKLE GENERAL 3V AP/LAT/OBL RIGHT RADEX ANKLE COMPLETE MINIMUM 3 [place] [address] [place] [phone] [place] [address] Referral ID Status Reason Start Date Expiration Date V isits Requested Visits Authorized [id number] Closed Auto-Generate d Referral 09/17/2024 10/17/2025 1 1 [facility] for referral (narrative)* Diagnostic Procedure Only (Urgent) - Closed Specialty Diagnoses / Procedures Referred By Contac t Referred To Contact US IMAGING Diagnoses Right ankle swelling Procedures US DVT LOWER RIGHT DUP-SCAN XTR VEINS UNILATERAL/LIMITED STUDY Grupo Mendez [place] [id number] [place] [address] [place] [address] Referral ID Status Reason Start Date Expiration Date V isits Requested Visits Authorized [id number] Closed Auto-Generate d Referral 09/18/2024 10/17/2025 1 1 [facility] for referral (narrative)* Diagnostic Procedure Only (Routine) - Closed Specialty Diagnoses / Procedures Referred By Contac t Referred To Contact XR IMAGING Diagnoses Right ankle swelling Procedures XR ANKLE GENERAL 3V AP/LAT/OBL RIGHT RADEX ANKLE COMPLETE MINIMUM 3 [place] [address] [place] [phone] [place] [address] Referral ID Status Reason Start Date Expiration Date V isits Requested Visits Authorized [id number] Closed Auto-Generate d Referral 09/17/2024 10/17/2025 1 1 * Diagnostic Procedure Only (Urgent) - Closed Specialty Diagnoses / Procedures Referred By Contac t Referred To Contact US IMAGING Diagnoses Right ankle swelling Procedures US DVT LOWER RIGHT DUP-SCAN XTR VEINS UNILATERAL/[place] [address] [place] [phone] [place] [address] Referral ID Status Reason Start Date Expiration Date V isits Requested Visits Authorized [id number] Closed Auto-Generate d Referral 09/18/2024 10/17/2025 1 1 [facility] ([facility]ative)No reason for referral information availableWCincinnati [facility] Work Phone: Reason for visit Narrative* Diagnostic Procedure Only (Routine) - Closed Specialty Diagnoses / Procedures Referred By Contac t Referred To Contact XR IMAGING Diagnoses Pain in joint involving right ankle and foot Procedures XR CALCANEUS 2V AXIAL/LAT RIGHT RADEX CALCANEUS MINIMUM 2 VIEWS Simone Kevin MD [address] [place] [address] [place] [address] Referral ID Status Reason Start Date Expiration Date V isits Requested Visits Authorized [id number] Closed Auto-Generate d Referral 09/19/2024 10/19/2025 1 1 [facility] Summary Purpose Family History No Family History Records FoundNo Family History Records FoundNo Family History Records FoundNo Family History Records Found Advance Directives No Advanced Directives Records FoundDocuments on File Type Date Recorded 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 Advance Directive(s) 2024 10:00 AM [...] Documents on File Type Date Recorded 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 Advance Directive(s) 08/28/2015 9:03 PM Date Activated Date Inactivated Comments 03/07/2023 4:44 AM 03/09/2023 7:53 PM Date Activated Date Inactivated Comments 03/24/2022 3:23 PM 03/26/2022 7:51 PM Latest Code Status on File Code Status Date Activated Date Inactivated Comments Full Code 03/24/2022 3:23 PM 03/26/2022 7:51 PM Full Code Order Discussed With: Patient Documents on File Type Date Recorded 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 Advance Directive(s) Advance Directive(s) 05/19/2020 10:04 PM Advance Directive(s) 03/11/2017 1:34 PM Advance Directive(s) 12/10/2016 5:24 PM Advance Directive(s) 04/17/2016 11:22 AM Advance Directive(s) 08/28/2015 9:03 PM Documents on File Type Date Recorded 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 Advance Directive(s) Advance Directive(s) 03/23/2022 11:09 PM Advance Directive(s) 05/19/2020 10:04 PM Advance Directive(s) 03/11/2017 1:34 PM Advance Directive(s) 12/10/2016 5:24 PM Advance Directive(s) 04/17/2016 11:22 AM Advance Directive(s) 08/28/2015 9:03 PM Latest Code Status on File Code Status Date Activated Date Inactivated Comments Full Code 03/24/2022 3:23 PM Documents on File Type Date Recorded 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 Advance Directive(s) Advance Directive(s) 03/27/2022 12:20 AM Advance Directive(s) 03/23/2022 11:09 PM Advance Directive(s) 05/19/2020 10:04 PM Advance Directive(s) 03/11/2017 1:34 PM Advance Directive(s) 12/10/2016 5:24 PM Advance Directive(s) 04/17/2016 11:22 AM Advance Directive(s) 08/28/2015 9:03 PM Documents on File Type Date Recorded 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 Advance Directive(s) 08/28/2015 9:03 PM [...] diabetic retinopathy Procedures CONSULT TO OPHTHALMOLOGY OFFICE/OUTPATIENT [facility] MDM 60-[place] [address] [place] [address] Referral ID Status Reason Start Date Expiration Date Visits Requested Visits Authorized [id number] Pending Review PCP Requested Referral 2 10/23/2023 1 1 Specialty Diagnoses / Procedures Referred By Contkika t Referred To Contact [facility] Diagnoses Muscular deconditioning Procedures CONSULT TO PHYSICAL THERAPY PHYSICAL THERAPY EVALUATION HIGH COMPLEX 45 MINS [facility] CenterWillie norman, LEASE ANALYST.BENEFITS SPECIALIST RECRUITER [address] [place] [phone] [facility] [place] [address] [place] [address] Referral ID Status Reason Start Date Expiration Date Visits Requested Visits Authorized [id number] Pending Review Auto-Generat ed Referral 03/17/2023 03/16/2024 1 1 Specialty Diagnoses / Procedures Referred By Contac t Referred To Contact [facility] Diagnoses Pain in both hands Pain in both wrists Procedures CONSULT TO CLINICAL PROGRAMMER OCCUPATIONAL THERAPY EVAL HIGH COMPLEX 60 MINS Willie Kaur, LEASE ANALYST.BENEFITS SPECIALIST RECRUITER [address] [place] [phone] [facility] [place] [phone] [place] [address] Referral ID Status Reason Start Date Expiration Date Visits Requested Visits Authorized [id number] Pending Review Auto-Generat ed Referral 03/17/2023 03/16/2024 1 1 Specialty Diagnoses / Procedures Referred By Contac t Referred To Contact Diagnoses Leukocytosis, unspecified type Procedures CONSULT TO HEMATOLOGY/ONCOLOGY OFFICE/OUTPATIENT [facility] [address] [place] [address] [place] [address] Referral ID Status Reason Start Date Expiration Date Visits Requested Visits Authorized [id number] Authorized PCP Requested Referral 09/04/2025 1 1 Specialty Diagnoses / Procedures Referred By Contac t Referred To Contact Orthopedics Diagnoses Right ankle swelling Closed nondisplaced fracture of right calcaneus, unspecified portion of calcaneus, initial encounter Procedures CONSULT PANEL TO ORTHOPAEDICS OFFICE/OUTPATIENT [facility] [address] [place] [address] [place] [address] Referral ID Status Reason Start Date Expiration Date Visits Requested Visits Authorized [id number] Authorized PCP Requested Referral 09/18/2024 09/18/2025 1 1 Specialty Diagnoses / Procedures Referred By Contac t Referred To Contact MR IMAGING Diagnoses Chronic pain of right ankle Procedures MRI ANKLE WO IVCON RIGHT MRI ANY JT LOWER EXTREM W/O CONTRAST MATRL Simone Kevin MD [address] [place] [address] Mr [facility] [place] [address] Referral ID Status Reason Start Date Expiration Date Visits Requested Visits Authorized [id number] Authorized Auto-Generat ed Referral 12/01/2025 1 1 Specialty Diagnoses / Procedures Referred By Contac t Referred To Contact XR IMAGING Diagnoses Right ankle swelling Procedures XR FOOT GENERAL 3V AP/LAT/OBL RIGHT RADEX FOOT COMPLETE MINIMUM 3 VIEWS Simone Kevin MD [address] [place] [address] Xr Imaging [place] [address] Referral ID Status Reason Start Date Expiration Date V isits Requested Visits Authorized [id number] Closed Auto-Generate d Referral 11/01/2024 12/01/2025 1 1 Specialty Diagnoses / Procedures Referred By Contac t Referred To Contact XR IMAGING Diagnoses Right ankle swelling Procedures XR ANKLE GENERAL 3V AP/LAT/OBL RIGHT RADEX ANKLE COMPLETE MINIMUM 3 VIEWS Simone Kevin MD [address] [place] [address] X[facility] Imaging [place] [address] Referral ID Status Reason Start Date Expiration Date V isits Requested Visits Authorized [id number] Closed Auto-Generate d Referral 11/01/2024 12/01/2025 1 1 Referral ID Status Reason Start Date Expiration Date V isits Requested Visits Authorized [id number] Closed Auto-Generate d Referral 11/01/2024 12/01/2025 1 1 Chief Complaint and Reason for Visit Chief Complaint Admit Date LAB WORK December 17, 2024 4 :00am LAB WORK December 24, 2024 4:00am LABWORK 2024 5:00am LABWORK January 07, 2025 5:00am [facility] LAB WORK January 15, 2025 5: 00am Chief Complaint Admit Date LAB WORK December 17, 2024 4 :00am LAB WORK December 24, 2024 4:00am LABWORK 2024 5:00am LABWORK January 07, 2025 5:00am [facility] LAB WORK January 15, 2025 5: 00am [facility] LAB WORK February 04, 2025 5 :00am Chief Complaint Admit Date LAB WORK December 17, 2024 4 :00am LAB WORK December 24, 2024 4:00am LABWORK 2024 5:00am LABWORK January 07, 2025 5:00am [facility] LAB WORK January 15, 2025 5: 00am [facility] LAB WORK February 04, 2025 5 :00am [facility] LAB WORK March 04, 2025 5 :00am Chief Complaint Admit Date LAB WORK December 24, 2024 4:00am LABWORK 2024 5:00am LABWORK January 07, 2025 5:00am [facility] LAB WORK January 15, 2025 5: 00am [facility] LAB WORK February 04, 2025 5 :00am [facility] LAB WORK March 04, 2025 5 :00am [facility] LAB WORK March 12, 2025 4 :00am LABWORK April 01, 2025 5:00a m Chief Complaint Admit Date LAB WORK December 24, 2024 4:00am LABWORK 2024 5:00am LABWORK January 07, 2025 5:00am [facility] LAB WORK January 15, 2025 5: 00am [facility] LAB WORK February 04, 2025 5 :00am [facility] LAB WORK March 04, 2025 5 :00am [facility] LAB WORK March 12, 2025 4 :00am Additional Source Comments INFORMATION SOURCE (unrecogn ized section and content) DATE CREATED AUTHOR 12/10/2021 [facility] DATE CREATED AUTHOR AUTHOR'S ORGANIZ ATION 02/16/2025 [facility] DATE CREATED AUTHOR AUTHOR'S ORGANIZ ATION 05/05/2025 [facility] DATE CREATED AUTHOR AUTHOR'S ORGANIZ ATION 05/26/2025 [facility] Source Comments (unrecognize d section and content) In the event this informatio n is protected by the Federal Confidentiality of Alcohol and Drug Abuse Patient Records regulations: The Federal rules restrict any use of the information to criminally investigate or prosecute any alcohol or drug abuse patient.[facility] the event this information is protected by the Federal Confidentiality of Alcohol and Drug Abuse Patient Records regulations: The Federal rules restrict any use of the information to criminally investigate or prosecute any alcohol or drug abuse patient.[facility] Hospital[facility] the event this information is protected by the Federal Confidentiality of Alcohol and Drug Abuse Patient Records regulations: The Federal rules restrict any use of the information to criminally investigate or prosecute any alcohol or drug abuse patient.[facility] Hospital[facility] the event this information is protected by the Federal Confidentiality of Alcohol and Drug Abuse Patient Records regulations: The Federal rules restrict any use of the information to criminally investigate or prosecute any alcohol or drug abuse patient.[facility] Hospital[facility] the event this information is protected by the Federal Confidentiality of Alcohol and Drug Abuse Patient Records regulations: The Federal rules restrict any use of the information to criminally investigate or prosecute any alcohol or drug abuse patient.[facility] HospitalIn the event this information is protected by the Federal Confidentiality of Alcohol and Drug Abuse Patient Records regulations: The Federal rules restrict any use of the information to criminally investigate or prosecute any alcohol or drug abuse patient.[facility] HospitalIn the event this information is protected by the Federal Confidentiality of Alcohol and Drug Abuse Patient Records regulations: The Federal rules restrict any use of the information to criminally investigate or prosecute any alcohol or drug abuse patient.[facility] HospitalIn the event this information is protected by the Federal Confidentiality of Alcohol and Drug Abuse Patient Records regulations: The Federal rules restrict any use of the information to criminally investigate or prosecute any alcohol or drug abuse patient.[facility] HospitalIn the event this information is protected by the Federal Confidentiality of Alcohol and Drug Abuse Patient Records regulations: The Federal rules restrict any use of the information to criminally investigate or prosecute any alcohol or drug abuse patient.[facility] HospitalIn the event this information is protected by the Federal Confidentiality of Alcohol and Drug Abuse Patient Records regulations: The Federal rules restrict any use of the information to criminally investigate or prosecute any alcohol or drug abuse patient.[facility] HospitalIn the event this information is protected by the Federal Confidentiality of Alcohol and Drug Abuse Patient Records regulations: The Federal rules restrict any use of the information to criminally investigate or prosecute any alcohol or drug abuse patient.[facility] HospitalIn the event this information is protected by the Federal Confidentiality of Alcohol and Drug Abuse Patient Records regulations: The Federal rules restrict any use of the information to criminally investigate or prosecute any alcohol or drug abuse patient.[facility] HospitalIn the event this information is protected by the Federal Confidentiality of Alcohol and Drug Abuse Patient Records regulations: The Federal rules restrict any use of the information to criminally investigate or prosecute any alcohol or drug abuse patient.[facility] HospitalIn the event this information is protected by the Federal Confidentiality of Alcohol and Drug Abuse Patient Records regulations: The Federal rules restrict any use of the information to criminally investigate or prosecute any alcohol or drug abuse patient.[facility] HospitalIn the event this information is protected by the Federal Confidentiality of Alcohol and Drug Abuse Patient Records regulations: The Federal rules restrict any use of the information to criminally investigate or prosecute any alcohol or drug abuse patient.[facility] HospitalIn the event this information is protected by the Federal Confidentiality of Alcohol and Drug Abuse Patient Records regulations: The Federal rules restrict any use of the information to criminally investigate or prosecute any alcohol or drug abuse patient.[facility] HospitalIn the event this information is protected by the Federal Confidentiality of Alcohol and Drug Abuse Patient Records regulations: The Federal rules restrict any use of the information to criminally investigate or prosecute any alcohol or drug abuse patient.[facility] HospitalIn the event this information is protected by the Federal Confidentiality of Alcohol and Drug Abuse Patient Records regulations: The Federal rules restrict any use of the information to criminally investigate or prosecute any alcohol or drug abuse patient.[facility] HospitalIn the event this information is protected by the Federal Confidentiality of Alcohol and Drug Abuse Patient Records regulations: The Federal rules restrict any use of the information to criminally investigate or prosecute any alcohol or drug abuse patient.[facility] HospitalIn the event this information is protected by the Federal Confidentiality of Alcohol and Drug Abuse Patient Records regulations: The Federal rules restrict any use of the information to criminally investigate or prosecute any alcohol or drug abuse patient.[facility] HospitalIn the event this information is protected by the Federal Confidentiality of Alcohol and Drug Abuse Patient Records regulations: The Federal rules restrict any use of the information to criminally investigate or prosecute any alcohol or drug abuse patient.[facility] HospitalIn the event this information is protected by the Federal Confidentiality of Alcohol and Drug Abuse Patient Records regulations: The Federal rules restrict any use of the information to criminally investigate or prosecute any alcohol or drug abuse patient.[facility] HospitalIn the event this information is protected by the Federal Confidentiality of Alcohol and Drug Abuse Patient Records regulations: The Federal rules restrict any use of the information to criminally investigate or prosecute any alcohol or drug abuse patient.[facility] HospitalIn the event this information is protected by the Federal Confidentiality of Alcohol and Drug Abuse Patient Records regulations: The Federal rules restrict any use of the information to criminally investigate or prosecute any alcohol or drug abuse patient.[facility] HospitalIn the event this information is protected by the Federal Confidentiality of Alcohol and Drug Abuse Patient Records regulations: The Federal rules restrict any use of the information to criminally investigate or prosecute any alcohol or drug abuse patient.[facility] HospitalIn the event this information is protected by the Federal Confidentiality of Alcohol and Drug Abuse Patient Records regulations: The Federal rules restrict any use of the information to criminally investigate or prosecute any alcohol or drug abuse patient.[facility] HospitalIn the event this information is protected by the Federal Confidentiality of Alcohol and Drug Abuse Patient Records regulations: The Federal rules restrict any use of the information to criminally investigate or prosecute any alcohol or drug abuse patient.[facility] HospitalIn the event this information is protected by the Federal Confidentiality of Alcohol and Drug Abuse Patient Records regulations: The Federal rules restrict any use of the information to criminally investigate or prosecute any alcohol or drug abuse patient.[facility] HospitalIn the event this information is protected by the Federal Confidentiality of Alcohol and Drug Abuse Patient Records regulations: The Federal rules restrict any use of the information to criminally investigate or prosecute any alcohol or drug abuse patient.[facility] HospitalIn the event this information is protected by the Federal Confidentiality of Alcohol and Drug Abuse Patient Records regulations: The Federal rules restrict any use of the information to criminally investigate or prosecute any alcohol or drug abuse patient.[facility] HospitalIn the event this information is protected by the Federal Confidentiality of Alcohol and Drug Abuse Patient Records regulations: The Federal rules restrict any use of the information to criminally investigate or prosecute any alcohol or drug abuse patient.[facility] HospitalIn the event this information is protected by the Federal Confidentiality of Alcohol and Drug Abuse Patient Records regulations: The Federal rules restrict any use of the information to criminally investigate or prosecute any alcohol or drug abuse patient.[facility] HospitalIn the event this information is protected by the Federal Confidentiality of Alcohol and Drug Abuse Patient Records regulations: The Federal rules restrict any use of the information to criminally investigate or prosecute any alcohol or drug abuse patient.[facility] HospitalIn the event this information is protected by the Federal Confidentiality of Alcohol and Drug Abuse Patient Records regulations: The Federal rules restrict any use of the information to criminally investigate or prosecute any alcohol or drug abuse patient.[facility] HospitalIn the event this information is protected by the Federal Confidentiality of Alcohol and Drug Abuse Patient Records regulations: The Federal rules restrict any use of the information to criminally investigate or prosecute any alcohol or drug abuse patient.[facility] HospitalIn the event this information is protected by the Federal Confidentiality of Alcohol and Drug Abuse Patient Records regulations: The Federal rules restrict any use of the information to criminally investigate or prosecute any alcohol or drug abuse patient.[facility] HospitalIn the event this information is protected by the Federal Confidentiality of Alcohol and Drug Abuse Patient Records regulations: The Federal rules restrict any use of the information to criminally investigate or prosecute any alcohol or drug abuse patient.[facility] HospitalIn the event this information is protected by the Federal Confidentiality of Alcohol and Drug Abuse Patient Records regulations: The Federal rules restrict any use of the information to criminally investigate or prosecute any alcohol or drug abuse patient.[facility] HospitalIn the event this information is protected by the Federal Confidentiality of Alcohol and Drug Abuse Patient Records regulations: The Federal rules restrict any use of the information to criminally investigate or prosecute any alcohol or drug abuse patient.[facility] HospitalIn the event this information is protected by the Federal Confidentiality of Alcohol and Drug Abuse Patient Records regulations: The Federal rules restrict any use of the information to criminally investigate or prosecute any alcohol or drug abuse patient.[facility] HospitalIn the event this information is protected by the Federal Confidentiality of Alcohol and Drug Abuse Patient Records regulations: The Federal rules restrict any use of the information to criminally investigate or prosecute any alcohol or drug abuse patient.[facility] HospitalIn the event this information is protected by the Federal Confidentiality of Alcohol and Drug Abuse Patient Records regulations: The Federal rules restrict any use of the information to criminally investigate or prosecute any alcohol or drug abuse patient.[facility] HospitalIn the event this information is protected by the Federal Confidentiality of Alcohol and Drug Abuse Patient Records regulations: The Federal rules restrict any use of the information to criminally investigate or prosecute any alcohol or drug abuse patient.[facility] HospitalIn the event this information is protected by the Federal Confidentiality of Alcohol and Drug Abuse Patient Records regulations: The Federal rules restrict any use of the information to criminally investigate or prosecute any alcohol or drug abuse patient.[facility] HospitalIn the event this information is protected by the Federal Confidentiality of Alcohol and Drug Abuse Patient Records regulations: The Federal rules restrict any use of the information to criminally investigate or prosecute any alcohol or drug abuse patient.[facility] HospitalIn the event this information is protected by the Federal Confidentiality of Alcohol and Drug Abuse Patient Records regulations: The Federal rules restrict any use of the information to criminally investigate or prosecute any alcohol or drug abuse patient.[facility] HospitalIn the event this information is protected by the Federal Confidentiality of Alcohol and Drug Abuse Patient Records regulations: The Federal rules restrict any use of the information to criminally investigate or prosecute any alcohol or drug abuse patient.[facility] HospitalIn the event this information is protected by the Federal Confidentiality of Alcohol and Drug Abuse Patient Records regulations: The Federal rules restrict any use of the information to criminally investigate or prosecute any alcohol or drug abuse patient.[facility] HospitalIn the event this information is protected by the Federal Confidentiality of Alcohol and Drug Abuse Patient Records regulations: The Federal rules restrict any use of the information to criminally investigate or prosecute any alcohol or drug abuse patient.[facility] HospitalIn the event this information is protected by the Federal Confidentiality of Alcohol and Drug Abuse Patient Records regulations: The Federal rules restrict any use of the information to criminally investigate or prosecute any alcohol or drug abuse patient.[facility] HospitalIn the event this information is protected by the Federal Confidentiality of Alcohol and Drug Abuse Patient Records regulations: The Federal rules restrict any use of the information to criminally investigate or prosecute any alcohol or drug abuse patient.[facility] HospitalIn the event this information is protected by the Federal Confidentiality of Alcohol and Drug Abuse Patient Records regulations: The Federal rules restrict any use of the information to criminally investigate or prosecute any alcohol or drug abuse patient.[facility] HospitalIn the event this information is protected by the Federal Confidentiality of Alcohol and Drug Abuse Patient Records regulations: The Federal rules restrict any use of the information to criminally investigate or prosecute any alcohol or drug abuse patient.[facility] HospitalIn the event this information is protected by the Federal Confidentiality of Alcohol and Drug Abuse Patient Records regulations: The Federal rules restrict any use of the information to criminally investigate or prosecute any alcohol or drug abuse patient.[facility] HospitalIn the event this information is protected by the Federal Confidentiality of Alcohol and Drug Abuse Patient Records regulations: The Federal rules restrict any use of the information to criminally investigate or prosecute any alcohol or drug abuse patient.[facility] HospitalIn the event this information is protected by the Federal Confidentiality of Alcohol and Drug Abuse Patient Records regulations: The Federal rules restrict any use of the information to criminally investigate or prosecute any alcohol or drug abuse patient.[facility] HospitalIn the event this information is protected by the Federal Confidentiality of Alcohol and Drug Abuse Patient Records regulations: The Federal rules restrict any use of the information to criminally investigate or prosecute any alcohol or drug abuse patient.[facility] HospitalIn the event this information is protected by the Federal Confidentiality of Alcohol and Drug Abuse Patient Records regulations: The Federal rules restrict any use of the information to criminally investigate or prosecute any alcohol or drug abuse patient.[facility] HospitalIn the event this information is protected by the Federal Confidentiality of Alcohol and Drug Abuse Patient Records regulations: The Federal rules restrict any use of the information to criminally investigate or prosecute any alcohol or drug abuse patient.[facility] HospitalIn the event this information is protected by the Federal Confidentiality of Alcohol and Drug Abuse Patient Records regulations: The Federal rules restrict any use of the information to criminally investigate or prosecute any alcohol or drug abuse patient.[facility] HospitalIn the event this information is protected by the Federal Confidentiality of Alcohol and Drug Abuse Patient Records regulations: The Federal rules restrict any use of the information to criminally investigate or prosecute any alcohol or drug abuse patient.[facility] HospitalIn the event this information is protected by the Federal Confidentiality of Alcohol and Drug Abuse Patient Records regulations: The Federal rules restrict any use of the information to criminally investigate or prosecute any alcohol or drug abuse patient.[facility] HospitalIn the event this information is protected by the Federal Confidentiality of Alcohol and Drug Abuse Patient Records regulations: The Federal rules restrict any use of the information to criminally investigate or prosecute any alcohol or drug abuse patient.[facility] HospitalIn the event this information is protected by the Federal Confidentiality of Alcohol and Drug Abuse Patient Records regulations: The Federal rules restrict any use of the information to criminally investigate or prosecute any alcohol or drug abuse patient.[facility] HospitalIn the event this information is protected by the Federal Confidentiality of Alcohol and Drug Abuse Patient Records regulations: The Federal rules restrict any use of the information to criminally investigate or prosecute any alcohol or drug abuse patient.[facility] HospitalIn the event this information is protected by the Federal Confidentiality of Alcohol and Drug Abuse Patient Records regulations: The Federal rules restrict any use of the information to criminally investigate or prosecute any alcohol or drug abuse patient.[facility] HospitalIn the event this information is protected by the Federal Confidentiality of Alcohol and Drug Abuse Patient Records regulations: The Federal rules restrict any use of the information to criminally investigate or prosecute any alcohol or drug abuse patient.[facility] HospitalIn the event this information is protected by the Federal Confidentiality of Alcohol and Drug Abuse Patient Records regulations: The Federal rules restrict any use of the information to criminally investigate or prosecute any alcohol or drug abuse patient.[facility] HospitalIn the event this information is protected by the Federal Confidentiality of Alcohol and Drug Abuse Patient Records regulations: The Federal rules restrict any use of the information to criminally investigate or prosecute any alcohol or drug abuse patient.[facility] HospitalIn the event this information is protected by the Federal Confidentiality of Alcohol and Drug Abuse Patient Records regulations: The Federal rules restrict any use of the information to criminally investigate or prosecute any alcohol or drug abuse patient.[facility] HospitalIn the event this information is protected by the Federal Confidentiality of Alcohol and Drug Abuse Patient Records regulations: The Federal rules restrict any use of the information to criminally investigate or prosecute any alcohol or drug abuse patient.[facility] HospitalIn the event this information is protected by the Federal Confidentiality of Alcohol and Drug Abuse Patient Records regulations: The Federal rules restrict any use of the information to criminally investigate or prosecute any alcohol or drug abuse patient.[facility] HospitalIn the event this information is protected by the Federal Confidentiality of Alcohol and Drug Abuse Patient Records regulations: The Federal rules restrict any use of the information to criminally investigate or prosecute any alcohol or drug abuse patient.[facility] HospitalIn the event this information is protected by the Federal Confidentiality of Alcohol and Drug Abuse Patient Records regulations: The Federal rules restrict any use of the information to criminally investigate or prosecute any alcohol or drug abuse patient.[facility] HospitalIn the event this information is protected by the Federal Confidentiality of Alcohol and Drug Abuse Patient Records regulations: The Federal rules restrict any use of the information to criminally investigate or prosecute any alcohol or drug abuse patient.[facility] HospitalIn the event this information is protected by the Federal Confidentiality of Alcohol and Drug Abuse Patient Records regulations: The Federal rules restrict any use of the information to criminally investigate or prosecute any alcohol or drug abuse patient.[facility] HospitalIn the event this information is protected by the Federal Confidentiality of Alcohol and Drug Abuse Patient Records regulations: The Federal rules restrict any use of the information to criminally investigate or prosecute any alcohol or drug abuse patient.[facility] HospitalIn the event this information is protected by the Federal Confidentiality of Alcohol and Drug Abuse Patient Records regulations: The Federal rules restrict any use of the information to criminally investigate or prosecute any alcohol or drug abuse patient.[facility] HospitalIn the event this information is protected by the Federal Confidentiality of Alcohol and Drug Abuse Patient Records regulations: The Federal rules restrict any use of the information to criminally investigate or prosecute any alcohol or drug abuse patient.[facility] HospitalIn the event this information is protected by the Federal Confidentiality of Alcohol and Drug Abuse Patient Records regulations: The Federal rules restrict any use of the information to criminally investigate or prosecute any alcohol or drug abuse patient.[facility] HospitalIn the event this information is protected by the Federal Confidentiality of Alcohol and Drug Abuse Patient Records regulations: The Federal rules restrict any use of the information to criminally investigate or prosecute any alcohol or drug abuse patient.[facility] HospitalIn the event this information is protected by the Federal Confidentiality of Alcohol and Drug Abuse Patient Records regulations: The Federal rules restrict any use of the information to criminally investigate or prosecute any alcohol or drug abuse patient.[facility] HospitalIn the event this information is protected by the Federal Confidentiality of Alcohol and Drug Abuse Patient Records regulations: The Federal rules restrict any use of the information to criminally investigate or prosecute any alcohol or drug abuse patient.[facility] HospitalIn the event this information is protected by the Federal Confidentiality of Alcohol and Drug Abuse Patient Records regulations: The Federal rules restrict any use of the information to criminally investigate or prosecute any alcohol or drug abuse patient.[facility] HospitalIn the event this information is protected by the Federal Confidentiality of Alcohol and Drug Abuse Patient Records regulations: The Federal rules restrict any use of the information to criminally investigate or prosecute any alcohol or drug abuse patient.[facility] HospitalIn the event this information is protected by the Federal Confidentiality of Alcohol and Drug Abuse Patient Records regulations: The Federal rules restrict any use of the information to criminally investigate or prosecute any alcohol or drug abuse patient.[facility] HospitalIn the event this information is protected by the Federal Confidentiality of Alcohol and Drug Abuse Patient Records regulations: The Federal rules restrict any use of the information to criminally investigate or prosecute any alcohol or drug abuse patient.[facility] HospitalIn the event this information is protected by the Federal Confidentiality of Alcohol and Drug Abuse Patient Records regulations: The Federal rules restrict any use of the information to criminally investigate or prosecute any alcohol or drug abuse patient.[facility] HospitalIn the event this information is protected by the Federal Confidentiality of Alcohol and Drug Abuse Patient Records regulations: The Federal rules restrict any use of the information to criminally investigate or prosecute any alcohol or drug abuse patient.[facility] HospitalIn the event this information is protected by the Federal Confidentiality of Alcohol and Drug Abuse Patient Records regulations: The Federal rules restrict any use of the information to criminally investigate or prosecute any alcohol or drug abuse patient.[facility] Reason for Visit (unrecogniz ed section [...] Date Comments Population Health Navigation Outreach 03/13/2024 [facility] [place] PCSA Reason Comments Diabetic Eye Exam Reason Comments Follow Up Reason Onset Date Comments Fatigue 08/13/2024 Reason Comments Hospital Follow Up Reason Comments Radiology XR Specialty Diagnoses / Procedures Referred By Contac t Referred To Contact XR IMAGING Diagnoses Pain Procedures XR SHOULDER GENERAL 3V OR MORE AP/TRUE AP/OTHER LT X-RAY SHOULDER COMPLET [place] [address] [place] [address] [place] [address] [place] [address] Referral ID Status Reason Start Date Expiration Date V isits Requested Visits Authorized [id number] Closed Auto-Generate d Referral 07/09/2021 08/08/2022 1 1 Reason Comments Results Reason Comments Radio Gen [facility] Radiology Service Pr ogress NotePATIENT NAME: Yusuf MedinaMRN: [id number] OF SERVICE: September 17, 2024TIME: 4:30 PMPATIENT [...] COMPLETE MINIMUM 3 [place] [address] [place] [address] [place] [address] Referral ID Status Reason Start Date Expiration Date V isits Requested Visits Authorized [id number] Closed Auto-Generate d Referral 09/17/2024 10/17/2025 1 1 Reason Comments Results Suspicion for calcan eal bone fracture Reason Comments Radiology US Specialty Diagnoses / Procedures Referred By Contac t Referred To Contact US IMAGING Diagnoses Right ankle swelling Procedures US DVT LOWER RIGHT DUP-SCAN XTR VEINS UNILATERAL/[place] [address] [place] [address] Us Imaging [facility] Referral ID Status Reason Start Date Expiration Date V isits Requested Visits Authorized [id number] Closed Auto-Generate d Referral 09/18/2024 10/17/2025 1 1 Reason Comments New 8/10 PAIN CONSTANT A ABEL Pain 8/10 PAIN CONSTANT A ABEL Specialty Diagnoses / Procedures Referred By Contac t Referred To Contact Orthopedics / ORTHOPAEDIC SURGERY Diagnoses Right ankle swelling Closed nondisplaced fracture of right calcaneus, unspecified portion of calcaneus, initial encounter Procedures CONSULT PANEL TO ORTHOPAEDICS OFFICE/OUTPATIENT [facility] [address] [place] [address] [place] [address] [facility] [address] [place] [address] Referral ID Status Reason Start Date Expiration Date V isits Requested Visits Authorized [id number] Closed PCP Requested Referral 09/18/2024 09/18/2025 1 1 Reason Comments Consult leukocytosis Specialty Diagnoses / Procedures Referred By Alisa t Referred To Contact Diagnoses Leukocytosis, unspecified type Procedures CONSULT TO HEMATOLOGY/ONCOLOGY OFFICE/OUTPATIENT [facility] 60 [place] [address] [place] [id number] Referral ID Status Reason Start Date Expiration Date V isits Requested Visits Authorized [id number] Closed PCP Requested Referral 09/04/2024 09/04/2025 1 1 Reason Comments Medicare Wellness Exam Reason Comments Follow Up Reason Comments Radio Gen RMP Radiology Service Pr ogress NotePATIENT NAME: Yusuf MedinaMRN: [id number] OF SERVICE: November 01, 2024TIME: 2:15 PMPATIENT [...] COMPLETE MINIMUM 3 VIEWS Simone Kevin MD [address] [place] [address] [facility] [place] [address] Referral ID Status Reason Start Date Expiration Date V isits Requested Visits Authorized [id number] Closed Auto-Generate d Referral 11/01/2024 12/01/2025 1 1 Reason Comments infection on ankle Right ankle looks in fected Specialty Diagnoses / Procedures Referred By Alisa leavitt Referred To Contact MR IMAGING Diagnoses Chronic pain of right ankle Procedures MRI ANKLE WO IVCON RIGHT MRI ANY JT LOWER EXTREM W/O CONTRAST Simone Galindo MD [address] [place] [id number] [place] [address] Referral ID Status Reason Start Date Expiration Date V isits Requested Visits Authorized [id number] Closed Auto-Generate d Referral 11/01/2024 12/01/2025 1 [...] Care Teams (unrecognized sec tion and content) Books Binder Relationship Specialty [place] [address] [place] [address] PCP - General [facility] 10/05/10 Edenilson Townsend [address] [place] [address] Consulting Optometry 12/07/17 Books Binder Relationship Specialty [place] [address] [place] [address] PCP - [facility] 10/05/10 Edenilson Townsend [address] [place] [address] Consulting Optometry 12/07/17 Books Binder Relationship Specialty [place] [address] [place] [address] PCP - General Family [facility] 10/05/10 Edenilson Townsend [address] [place] [address] Consulting Optometry 12/07/17 Books Binder Relationship Specialty [place] [address] [place] [address] PCP - General Family Practice 10/05/10 Edenilson Townsend [address] [place] [address] Consulting Optometry 12/07/17 José Miguel Swanson, [facility] [address] [place] [address] Transitional Care Pharmacist Pharmacy 03/30/22 04/30/22 Katia Farooq, wood scrap handler Revenue Cycle Analyst 03/30/22 04/29/22 Books Binder Relationship Specialty [place] [address] [place] [address] PCP - General Family Practice 10/05/10 Edenilson Townsend [address] [place] [address] Consulting Optometry 12/07/17 José Miguel Swanson, [facility] [address] [place] [address] Transitional Care Pharmacist Pharmacy 03/30/22 04/30/22 Katia Farooq, wood scrap handler Revenue Cycle Analyst 03/30/22 04/29/22 Books Binder Relationship Specialty [place] [address] [place] [address] PCP - General Family Practice 10/05/10 Edenilson Townsend [address] [place] [address] Consulting Optometry 12/07/17 Jos éMiguel Swanson, [facility] [address] [place] [address] Transitional Care Pharmacist Pharmacy 03/30/22 04/30/22 Katia Farooq, wood scrap handler Revenue Cycle Analyst 03/30/22 04/29/22 Books Binder Relationship Specialty [place] [address] [place] [address] PCP - General Family Practice 10/05/10 Edneilson Townsend [address] [place] [address] Consulting Optometry 12/07/17 [facility] [address] [place] [address] Transitional Care Pharmacist Pharmacy 03/30/22 04/30/22 Katia Farooq, wood scrap handler Revenue Cycle Analyst 03/30/22 04/29/22 Books Binder Relationship Specialty [place] [address] [place] [address] PCP - General Family Practice 10/05/10 Edenilson Townsend [address] [place] [address] Consulting Optometry 12/07/17 José Miguel Swanson, [facility] [address] [place] [address] Transitional Care Pharmacist Pharmacy 03/30/22 04/30/22 Katia Farooq, wood scrap handler Revenue Cycle Analyst 03/30/22 04/29/22 Books Binder Relationship Specialty [place] [address] [place] [address] PCP - General Family Practice 10/05/10 Edenilson Townsend [address] [place] [address] Consulting Optometry 12/07/17 Books Binder Relationship Specialty [place] [address] [place] [address] PCP - General Family Practice 10/05/10 Edenilson Townsend [address] [place] [address] Consulting Optometry 12/07/17 Books Binder Relationship Specialty [place] [address] [place] [address] PCP - General Family Practice 10/05/10 Edenilson Townsend [address] [place] [address] Consulting Optometry 12/07/17 Books Binder Relationship Specialty [place] [address] [place] [address] PCP - General Family Medicine 10/05/10 Edenilson Townsend [address] [facility] [place] [address] Consulting Optometry 12/07/17 Books Binder Relationship Specialty [place] [address] [place] [address] PCP - General Family Medicine 10/05/10 Edenilson Townsend [address] [facility] [place] [address] Consulting Optometry 12/07/17 Books Binder Relationship Specialty [place] [address] [place] [address] PCP - General Family Medicine 10/05/10 Edenilson Townsend [address] [place] [address] Consulting Optometry 12/07/17 Books Binder Relationship Specialty [place] [address] [place] [address] PCP - General Family Medicine 10/05/10 Edenilson Townsend [address] [place] [address] Consulting Optometry 12/07/17 Books Binder Relationship Specialty [place] [address] [place] [address] PCP - General Family Medicine 10/05/10 Edenilson Townsend [address] [place] [address] Consulting Optometry 12/07/17 [place] [address] [place] [address] Primary Care Revenue Cycle Analyst 03/10/23 04/08/23 Books Binder Relationship Specialty [place] [address] [place] [address] PCP - General Family Medicine 10/05/10 Edenilson Townsend [address] [place] [address] Consulting Optometry 12/07/17 [place] [address] [place] [address] Primary Care Revenue Cycle Analyst 03/10/23 04/08/23 Books Binder Relationship Specialty [place] [address] [place] [address] PCP - General Family Medicine 10/05/10 Edenilson Townsend [address] [place] [address] Consulting Optometry 12/07/17 [place] [address] [place] [address] Primary Care Revenue Cycle Analyst 03/10/23 04/08/23 Books Binder Relationship Specialty [place] [address] [place] [address] PCP - General Family Medicine 10/05/10 Edenilson Townsend [address] [place] [address] Consulting Optometry 12/07/17 [place] [address] [place] [address] Primary Care Revenue Cycle Analyst 03/10/23 04/08/23 Books Binder Relationship Specialty [place] [address] [place] [address] PCP - General Family Medicine 10/05/10 Edenilson Townsend [address] [place] [address] Consulting Optometry 12/07/17 Books Binder Relationship Specialty [place] [address] [place] [address] PCP - General Family Medicine 10/05/10 Edenilson Townsend [address] [place] [address] Consulting Optometry 12/07/17 Books Binder Relationship Specialty [place] [address] [place] [address] PCP - General Family Medicine 10/05/10 Edenilson Townsend [address] [place] [address] Consulting Optometry 12/07/17 Books Binder Relationship Specialty [place] [address] [place] [address] PCP - General Family Medicine 10/05/10 Edenilson Townsend [address] [facility] [place] [address] Consulting Optometry 12/07/17 Books Binder Relationship Specialty [place] [address] [place] [address] PCP - General Family Medicine 10/05/10 Edenilson Townsend [address] [facility] [place] [address] Consulting Optometry 12/07/17 Books Binder Relationship Specialty [place] [address] [place] [address] PCP - General Family Medicine 10/05/10 Edenilson Townsend [address] [place] [address] Consulting Optometry 12/07/17 Books Binder Relationship Specialty [place] [address] [place] [address] PCP - General Family Medicine 10/05/10 Edenilson Townsend, CHETNA [address] [place] [address] Consulting Optometry 12/07/17 Books Binder Relationship Specialty [place] [address] [place] [address] PCP - General Family Medicine 10/05/10 Edenilson Townsend, CHETNA [address] [place] [address] Consulting Optometry 12/07/17 Books Binder Relationship Specialty [place] [address] [place] [address] PCP - General Family Medicine 10/05/10 Edenilson Townsend, [place] [address] [place] [address] Consulting Optometry 12/07/17 Books Binder Relationship Specialty [place] [address] [place] [address] PCP - General Family Medicine 10/05/10 Edenilson Townsend, [place] [address] [place] [address] Consulting Optometry 12/07/17 Books Binder Relationship Specialty [place] [address] [place] [address] PCP - General Family Medicine 10/05/10 Edenilson Townsend, OD [address] [place] [address] Consulting Optometry 12/07/17 Books Binder Relationship Specialty [place] [address] [place] [address] PCP - General Family Medicine 10/05/10 Edenilson Townsend, OD [address] [place] [address] Consulting Optometry 12/07/17 Books Binder Relationship Specialty [place] [address] [place] [address] PCP - General Family Medicine 10/05/10 [place] [address] [facility] [place] [address] Consulting Optometry 12/07/17 Books Binder Relationship Specialty [place] [address] [place] [address] PCP - General Family Medicine 10/05/10 [place]ilson Townsend OD [address] [place] [address] Consulting Optometry 12/07/17 Books Binder Relationship Specialty Start [place] [address] [place] [address] PCP - General Family Medicine 10/05/10 [place]ilson Townsend OD [address] [place] [address] Consulting Optometry 12/07/17 Books Binder Relationship Specialty [place] [address] [place] [address] PCP - General Family Medicine 10/05/10 Edenilson Townsend OD [address] [place] [address] Consulting Optometry 12/07/17 Books Binder Relationship Specialty [place] [address] [place] [address] PCP - General Family Medicine 10/05/10 [place] OD [address] [place] [address] Consulting Optometry 12/07/17 Books Binder Relationship Specialty Start [place] [address] [place] [address] PCP - General Family Medicine 10/05/10 Edenilson Townsend, OD [address] [place] [address] Consulting Optometry 12/07/17 Books Binder Relationship Specialty Start [place] [address] [place] [address] PCP - General Family Medicine 10/05/10 Edenilson Townsend, OD [address] [place] [address] Consulting Optometry 12/07/17 Books Binder Relationship Specialty Start [place] [address] [place] [address] PCP - General Family Medicine 10/05/10 Edenilson Townsend, OD [address] [place] [address] Consulting Optometry 12/07/17 Books Binder Relationship Specialty [place] [address] [place] [address] PCP - General Family Medicine 10/05/10 Edenilson Townsend, OD [address] [place] [address] Consulting Optometry 12/07/17 Books Binder Relationship Specialty Start [place] [address] [place] [address] PCP - General Family Medicine 10/05/10 Edenilson Townsend OD [address] [place] [address] Consulting Optometry 12/07/17 Books Binder Relationship Specialty [place] [address] [place] [address] PCP - General Family Medicine 10/05/10 Edenilson Townsend OD [address] [place] [address] Consulting Optometry 12/07/17 Books Binder Relationship Specialty Start [place] [address] [place] [address] PCP - General Family Medicine 10/05/10 [place]ilson Townsend OD [address] [facility] [place] [address] Consulting Optometry 12/07/17 Books Binder Relationship Specialty [place] [address] [place] [address] PCP - General Family Medicine 10/05/10 Edenilson Townsend OD [address] [facility] [place] [address] Consulting Optometry 12/07/17 Books Binder Relationship Specialty [place] [address] [place] [address] PCP - General Family Medicine 10/05/10 Edenilson Townsend OD [address] [place] [address] Consulting Optometry 12/07/17 Cinthia Ponce LEASE ANALYST.BENEFITS SPECIALIST RECRUITER [address] [place] [address] Cigar Head Peg[facility] 10/21/24 Willie Kaur, LEASE ANALYST.BENEFITS SPECIALIST RECRUITER [address] [place] [address] [facility] 10/21/24 Books Binder Relationship Specialty [place] [address] [place] [address] PCP - General Family Medicine 10/05/10 Edenilson Townsend OD [address] [place] [address] Consulting Optometry 12/07/17 Cinthia Ponce LEASE ANALYST.BENEFITS SPECIALIST RECRUITER [address] [place] [address] [facility] 10/21/24 Willie Kaur, LEASE ANALYST.BENEFITS SPECIALIST RECRUITER [address] [place] [address] [facility] 10/21/24 Books Binder Relationship Specialty Start [place] [address] [place] [address] PCP - General Family Medicine 10/05/10 Edenilson Townsend OD [address] [place] [address] Consulting Optometry 12/07/17 Cinthia Ponce LEASE ANALYST.BENEFITS SPECIALIST RECRUITER [address] [place] [address] [facility] 10/21/24 Willie Kaur APRN.BENEFITS SPECIALIST RECRUITER [address] [facility] [place] [address] [facility] 10/21/24 Books Binder Relationship Specialty [place] [address] [place] [address] PCP - General Family Medicine 10/05/10 Edenilson Townsend OD [address] [place] [address] Consulting Optometry 12/07/17 Cinthia Ponce LEASE ANALYST.BENEFITS SPECIALIST RECRUITER [address] [place] [address] [facility] 10/21/24 Willie Kaur, LEASE ANALYST.BENEFITS SPECIALIST RECRUITER [address] [facility] [place] [address] [facility] 10/21/24 Books Binder Relationship Specialty [place] [address] [place] [address] PCP - General Family Medicine 10/05/10 Edenilson Townsend OD [address] [place] [address] Consulting Optometry 12/07/17 Cinthia Ponce LEASE ANALYST.BENEFITS SPECIALIST RECRUITER [address] [place] [address] [facility] 10/21/24 Willie Kaur, LEASE ANALYST.BENEFITS SPECIALIST RECRUITER [address] [place] [address] Cigar Head Pegger [facility] 10/21/24 Books Binder Relationship Specialty Start [place] [address] [place] [address] PCP - General Family Medicine 10/05/10 Edenilson Townsend, CHETNA [address] [place] [address] Consulting Optometry 12/07/17 Cinthia Ponce LEASE ANALYST.BENEFITS SPECIALIST RECRUITER [address] [place] [address] Cigar Head Pegger [facility] 10/21/24 Willie Kaur, LEASE ANALYST.BENEFITS SPECIALIST RECRUITER [address] [place] [address] [facility] 10/21/24 Books Binder Relationship Specialty [place] [address] [place] [address] PCP - General Family Medicine 10/05/10 Edenilson Townsend, CHETNA [address] [place] [address] Consulting Optometry 12/07/17 Cinthia Ponce LEASE ANALYST.BENEFITS SPECIALIST RECRUITER [address] [place] [address] [facility] 10/21/24 Willie Kaur LEASE ANALYST.BENEFITS SPECIALIST RECRUITER [address] [facility] [place] [address] [facility] 10/21/24 Books Binder Relationship Specialty [place] [address] [place] [address] PCP - General Family Medicine 10/05/10 Edenilson Townsend, OD [address] [place] [address] Consulting Optometry 12/07/17 Cinthia Ponce, LEASE ANALYST.BENEFITS SPECIALIST RECRUITER [address] [place] [address] [facility] 10/21/24 Willie Kaur, LEASE ANALYST.BENEFITS SPECIALIST RECRUITER [address] [place] [address] [facility] 10/21/24 Books Binder Relationship Specialty Start [place] [address] [place] [address] PCP - General Family Medicine 10/05/10 Edenilson Townsend, OD [address] [place] [address] Consulting Optometry 12/07/17 Cinthia Ponce, LEASE ANALYST.BENEFITS SPECIALIST RECRUITER [address] [place] [address] [facility] 10/21/24 Willie Kaur, LEASE ANALYST.BENEFITS SPECIALIST RECRUITER [address] [place] [address] [facility] 10/21/24 Books Binder Relationship Specialty Start [place] [address] [place] [address] PCP - General Family Medicine 10/05/10 Edenilson Townsend, [address] [place] [address] Consulting Optometry 12/07/17 Cinthia Ponce, LEASE ANALYST.BENEFITS SPECIALIST RECRUITER [address] [place] [address] [facility] 10/21/24 Willie Kaur, LEASE ANALYST.BENEFITS SPECIALIST RECRUITER [address] [place] [address] [facility] 10/21/24 Books Binder Relationship Specialty [place] [address] [place] [address] PCP - General Family Medicine 10/05/10 Edenilson Townsend, OD [address] [place] [address] Consulting Optometry 12/07/17 Cinthia Ponce, LEASE ANALYST.BENEFITS SPECIALIST RECRUITER [address] [place] [address] [facility] 10/21/24 Willie Kaur LEASE ANALYST.BENEFITS SPECIALIST RECRUITER [address] [place] [address] [facility] 10/21/24 Books Binder Relationship Specialty Start [place] [address] [place] [address] PCP - General Family Medicine 10/05/10 Edenilson Townsend, OD [address] [place] [address] Consulting Optometry 12/07/17 Cinthia Ponce, LEASE ANALYST.BENEFITS SPECIALIST RECRUITER [address] [place] [address] [facility] 10/21/24 Willie Kaur, LEASE ANALYST.BENEFITS SPECIALIST RECRUITER [address] [place] [address] [facility] 10/21/24 Books Binder Relationship Specialty Start [place] [address] [place] [address] PCP - General Family Medicine 10/05/10 Edenilson Townsend, CHE[address]NA [address] [place] [address] Consulting Optometry 12/07/17 Cinthia Ponce, LEASE ANALYST.BENEFITS SPECIALIST RECRUITER [address] [place] [address] [facility] 10/21/24 Willie Kaur, LEASE ANALYST.BENEFITS SPECIALIST RECRUITER [address] [place] [address] [facility] 10/21/24 Books Binder Relationship Specialty Start [place] [address] [place] [address] PCP - General Family Medicine 10/05/10 [place] OD [address] [place] [address] Consulting Optometry 12/07/17 Cinthia Ponce, LEASE ANALYST.BENEFITS SPECIALIST RECRUITER [address] [place] [address] [facility] 10/21/24 Willie Kaur, LEASE ANALYST.BENEFITS SPECIALIST RECRUITER [address] [place] [address] [facility] 10/21/24 Books Binder Relationship Specialty Start [place] [address] [place] [address] PCP - General Family Medicine 10/05/10 Edenilson Townsend OD [address] [place] [address] Consulting Optometry 12/07/17 Cinthia Ponce, LEASE ANALYST.BENEFITS SPECIALIST RECRUITER [address] [place] [address] [facility] 10/21/24 Willie Kaur, LEASE ANALYST.BENEFITS SPECIALIST RECRUITER [address] [place] [address] [facility] 10/21/24 Books Binder Relationship Specialty Start [place] [address] [place] [address] PCP - General Family Medicine 10/05/10 Edenilson Townsend OD [address] [place] [address] Consulting Optometry 12/07/17 Cinthia Ponce LEASE ANALYST.BENEFITS SPECIALIST RECRUITER [address] [place] [address] [facility] 10/21/24 Willie Kaur, LEASE ANALYST.BENEFITS SPECIALIST RECRUITER [address] [place] [address] [facility] 10/21/24 Books Binder Relationship Specialty Start [place] [address] [place] [address] PCP - General Family Medicine 10/05/10 Edenilson Townsend, OD [address] [place] [address] Consulting Optometry 12/07/17 Cinthia Ponce, LEASE ANALYST.BENEFITS SPECIALIST RECRUITER [address] [place] [address] [facility] 10/21/24 Willie Kaur, LEASE ANALYST.BENEFITS SPECIALIST RECRUITER [address] [place] [address] [facility] 10/21/24 Books Binder Relationship Specialty Start [place] [address] [place] [address] PCP - General Family Medicine 10/05/10 Edenilson Townsend, OD [address] [place] [address] Consulting Optometry 12/07/17 Cinthia Ponce LEASE ANALYST.BENEFITS SPECIALIST RECRUITER [address] [place] [address] [facility] 10/21/24 Willie Kaur APRN.BENEFITS SPECIALIST RECRUITER [address] [facility] [place] [place] [address] [facility] 10/21/24 Books Binder Relationship Specialty Start [place] [address] [place] [address] PCP - General Family Medicine 10/05/10 Edenilson Townsend OD [address] [place] [address] Consulting Optometry 12/07/17 Cinthia Ponce LEASE ANALYST.BENEFITS SPECIALIST RECRUITER [address] [place] [address] [facility] 10/21/24 Willie Kaur LEASE ANALYST.BENEFITS SPECIALIST RECRUITER [address] [place] [address] [facility] 10/21/24 Books Binder Relationship Specialty Start Date End Date Migdalia [place] [id number] [place] [address] PCP - General Family Medicine 10/05/10 Edenilson Townsend OD [address] [place] [address] Consulting Optometry 12/07/17 Cinthia Ponce LEASE ANALYST.BENEFITS SPECIALIST RECRUITER [address] [place] [address] [facility] 10/21/24 Willie Kaur, LEASE ANALYST.BENEFITS SPECIALIST RECRUITER [address] [place] [address] [facility] 10/21/24 Team Status: Active Member Role Status [...] Provider Active S tart: February 04, 2025 Books Binder Relationship Specialty Start [place] [address] [place] [address] PCP - General Family Medicine 10/05/10 Edenilson Townsend OD [address] [place] [address] Consulting Optometry 12/07/17 Cinthia Ponce, LEASE ANALYST.BENEFITS SPECIALIST RECRUITER [address] [place] [address] Cigar Head [facility]ger [facility] 10/21/24 Willie Kaur, LEASE ANALYST.BENEFITS SPECIALIST RECRUITER [address] [place] [address] [facility] 10/21/24 Team Status: Inactive Member [...] Provider Active S tart: April 01, 2025 Books Binder Relationship Specialty Start [place] [address] [place] [address] PCP - General Family Medicine 10/05/10 Edenilson Townsend OD [address] [place] [address] Consulting Optometry 12/07/17 Willie Kaur APRN.CNP [address] [employer] [place], [place] [id number] [facility] 10/21/24 Goals (unrecognized section and content) Goals [...] BE BASED ON THE PRIMARY CLINICAL RECORDS. [employer] [facility]. provides no warranty or guarantee of the accuracy or completeness of information in this document.
[2025-05-27 09:15] LABS: CRP < 3.00 mg/L (0.0-3.0)
== END ==
LOC: OLS.ACH 04:00
PROVIDERS: Referring Provider Internal Medicine; Visit Provider Internal Medicine
DX: Z86.14 Personal history of Methicillin resistant Staphylococcus aureus infection (principal); M46.92 Unspecified inflammatory spondylopathy, cervical region; M19.079 Primary osteoarthritis, unspecified ankle and foot
CPT/HCPCS: 36415; 85652; 86140

== ENCOUNTER → 2025-06-04 | Outpatient (REF) | payer MEDICARE, SELFPAY ==
--- OUTSIDE RECORDS SUMMARY | 2025-06-04 04:01 | XMS RPT_ITS | CCD ---
Author Organization [facility] ion Partnership [facility] Care Team Providers [facility] [employer] Name Role Phone Migdalia Cramer MD Primary Care Provider Edenilson Townsend Unavailable [phone] [facility] Unavailable Oseas MURRIETA, Katia Unavailable UnavailMigdalia Matute MD Primary Care Provider Edenilson Townsend Unavailable Migdalia Cramer MD Primary Care Provider Edenilson Townsend Unavailable [phone] Lien Hankins RN Unavailable Edenilson Townsend OD Unavailable [phone] Migdalia Cramer MD Primary Care Provider Kris BROADCAST TECHNICIAN.Cinthia JUAN Unavailable [facility] BROADCAST TECHNICIAN.Willie JUAN Unavailable [phone] Aubree HODGE, Mario Attending Provider Unavailable Aubree [...] Primary Care Unavailable ELMA THOMPSON Attending Unavailable Depvikkio MD, Mario Attending Provider Unavailable Deperro MD, Mario Referring Provider Unavailable Deperro OLS, Mario Attending Unavailable Deperro [...] Attending Unavailable Deperro OLS, Mario Referring Unavailable MIGDALIA CRAMER Primary Care Unavailable TYESHA SINGLETON Attending Unavailable MIGDALIA CRAMER Primary Care Unavailable MITEEMRSON WILLIE Referring Unavailable CRAMER, MIGDALIA Archibald Primary Care Unavailable MITFRANCK HATCHANDA Referring Unavailable CRAMER, MIGDALIA Dragan Primary Care Unavailable CRAMER, MIGDALIA Archibald Referring Unavailable OSCAR, GRUPO Attending Unavailable CRAMER, MIGDALIA Archibald Primary Care Unavailable MIGDALIA CRAMER Attending Unavailable MIGDALIA CRAMER Primary Care Unavailable OSCAR, GRUPO Referring Unavailable CRAMER, MIGDALIA Archibald Primary Care Unavailable DORITA SIMONE Referring Unavailable CRAMER, MIGDALIA Archibald Primary Care Unavailable MARIUSZ ROMO Attending Unavailable MIGDALIA CRAMER Primary Care Unavailable SIMONE KEVIN Referring Unavailable CRAMER, MIGDALIA Archibald Primary Care Unavailable OSCAR, GRUPO Referring Unavailable CRAMER, MIGDALIA Archibald Primary Care Unavailable OSCAR, GRUPO Referring Unavailable CRAMER, MIGDALIA Dragan Primary Care Unavailable DORITA SIMONE Referring Unavailable CRAMER, MIGDALIA Archibald Primary Care Unavailable OSCAR, GRUPO Referring Unavailable SIMONE KEVIN Attending Unavailable BELA, MIGDALIA Archibald Primary Care Unavailable AB BENSON Attending Unavailable CRAMER, MIGDALIA Archibald Primary Care Unavailable SELF Referring Unavailable SIMONE KEVIN Attending Unavailable MIGDALIA CRAMER Primary Care Unavailable DORITA SIMONE Referring Unavailable CRAMER, MIGDALIA Archibald Primary Care Unavailable OSCAR, GRUPO Referring Unavailable BELA, MIGDALIA Archibald Primary Care Unavailable OSCAR, GRUPO Attending Unavailable MIGDALIA CRAMER Primary Care Unavailable MIGDALIA CRAMER Attending Unavailable MIGDALIA CRAMER Primary Care Unavailable MIGDALIA CRAMER Attending Unavailable MARIUSZ ROMO Referring Unavailable Medications Current Medications Medication Drug Class(es) Dates Sig (Normalized) Sig (Original) acetaminophen 325 mg oral capsule (11 sources) take 2 tablets by mouth three times daily for pain acetaminophen 325 mg cap Take 325 mg by mouth two times a day. Give 2 tablets by mouth three times a day for pain for 2 weeks Active albuterol 0.833 mg/ml / ipratropium bromide 0.167 mg/ml inhalation solution (6 sources) Anticholinergic, beta2-Adrenergic Agonist take 3 mL [...] DAILY ascorbic acid 500 mg oral tablet (6 sources) Vitamin C take 1 tablet by mouth twice daily ascorbic acid, vitamin C, (VITAMIN C) 500 mg tablet Take 500 mg by mouth two times a day. Active atorvastatin 40 mg oral tablet (6 sources) HMG-CoA Reductase Inhibitor take 1 tablet [...] Comment on above: Take 1 capsule by [facility] once daily for 3 doses. colchicine 0.6 mg oral tablet (17 sources) Start: 12-12-2024 End: 03-12-2025 take 1 [...] needed. docusate sodium 50 mg / sennosides, chcf 8.6 mg oral tablet (11 sources) take 1 tablet by mouth once [...] by iwona th twice daily. GLUCAGON INJECTION (6 sources) GLUCAGON INJECTI ON 1 mg by INJECTION(UNSPECIFIED PARENTERAL ROUTES) route as needed (hypoglycemia). If glucose is less than 70 and non-responsive or NPO. Repeat blood sugar in 15 minutes. Active 3 ml insulin glargine 100 unt/ml pen injector (17 sources) Insulin Analog Start: inject 22 [IU] by subcutaneous injection once daily at bedtime insulin glargine 100 unit/mL (3 mL) Inject 22 Units subcutaneously daily at bedtime. 12/12/2024 Active insulin lispro 100 unt/ml injectable solution (17 sources) Insulin Analog Start: inject 8 [IU] [...] affected area lisinopril 20 mg oral tablet (17 sources) Angiotensin Converting Enzyme Inhibitor Start: take 1 tablet by mouth once daily lisinopril (ZESTRIL) 20 mg tablet Take 1 tablet by mouth once daily. 12/12/2024 Active magnesium hydroxide 80 mg/ml oral suspension (11 sources) take 5 mL by mouth once [...] pantoprazole 40 mg delayed release oral tablet (17 sources) Proton Pump Inhibitor Start: take 1 [...] once daily. predniSONE 5 mg oral tablet (16 sources) Start: 12-12-2024 End: 2024 take 4 [...] psyllium 3400 mg powder for oral suspension (11 sources) psyllium husk (METAMUCIL) 3.4 gram/5.4 gram powd Take 3.4 g by mouth once daily. One time a day for constipation Active therapeutic multivitamin-minerals (THERA-M PLUS) 9 mg iron-400 mcg tablet (6 sources) therapeutic multivitamin-mineral s (THERA-M PLUS) 9 [...] Active vitamin b6 50 mg oral tablet (7 sources) Start: 5 take 1 tablet by [...] MAIL ORDER Take 1 tablet by iwona th once daily. (local supply while waiting for [...] on above: Take 1 capsule by mo [facility] once daily. TAKE 1 CAPSULE BY MO [facility] ONCE DAILY melatonin 3 mg oral [...] insulin (HCC) TAKE 1 TABLET BY MOUTH ONCE DAILY 90 tablet 3 06/18/2022 Active Start: 08-19-2020 End: 07-14-2021 pioglitazone (ACTOS) 45 mg t ablet Indications: Type 2 diabetes mellitus with stage 3 chronic kidney disease, without long-term current use of insulin ([facility]) TAKE 1 TABLET BY MOUTH ONCE DAILY 90 tablet 3 07/14/2021 Active Comment on above: TAKE 1 TABLET BY IWONA TH ONCE DAILY polyethylene glycol 3350 07379 mg powder for oral solution (20 sources) [...] Problem Date Documented Date Episodic/Chronic Anxiety disorders (18 sources) Anxiety; Translations: [Anxiety disorder, unspecified] Onset: [...] 09-15-2011 Episodic Gout and other crystal arthropathies (20 sources) Pyrophosphate arthritis; 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 [...] insomnia] Onset: 05-25-2017 05-25-2017 Chronic Nutritional deficiencies (18 sources) Vitamin D deficiency; Translations: [Vitamin D [...] fitting of prostheses; and adjustment of devices (18 sources) Patient encounter status; Translations: [Encounter for [...] mention of infection] 09-13-2024 Episodic Thyroid disorders (18 sources) Thyroid nodule; Translations: [Nontoxic single thyroid nodule] Onset: 12-08-2024 12-08-2024 Chronic Unclassified (1 source) Wound Check Onset: 01-16-2025 Urinary tract infections (20 sources) Acute cystitis; Translations: [Acute cystitis without hematuria] Onset: 03-24-2022 Resolved: 03-26-2022 03-24-2022 Episodic Past or Other Problems Problem Classification Problem Date Documented Da te Episodic/Chronic Abdominal pain (18 sources) Left upper quadrant pain; Translations: [Left [...] 2 03-27-2022 Episodic Deficiency and other anemia (18 sources) Anemia; Translations: [Anemia, unspecified] Onset: 5 12-06-2024 Episodic Deficiency and other anemia (18 sources) Chronic anemia; Translations: [Anemia, unspecified] Onset: [...] Resolved: 7 12-01-2016 Chronic Headache; including migraine (19 sources) Headache; Translations: [Headache, unspecified headache type] Onset: 5 08-14-2024 Episodic Immunizations and screening for infectious disease (18 sources) Anti-nuclear factor positive; Translations: [Other specified abnormal immunological findings in serum] Onset: 5 12-06-2024 Episodic Malaise and fatigue (20 sources) Asthenia; Translations: [Weakness] Onset: 4 08-14-2024 Episodic Menopausal disorders (20 sources) Atrophic vaginitis; Translations: [Postmenopausal atrophic vaginitis] Onset: 7 Resolved: 6 05-11-2016 Chronic Neoplasms of unspecified nature or uncertain behavior (18 sources) Thrombocytosis; Translations: [Thrombocytosis] Onset: 5 12-06-2024 [...] 2 03-29-2022 Episodic Other connective tissue disease (18 sources) Foot pain; Translations: [Pain in left foot] Onset: 5 12-06-2024 Episodic Other connective tissue disease (18 sources) Muscle pain; Translations: [Myalgia, unspecified site] Onset: 5 12-06-2024 Episodic Other connective tissue disease (18 sources) Muscle weakness of limb; Translations: [Other [...] 05-11-2016 Episodic Other inflammatory condition of skin (18 sources) Erythema; Translations: [Erythematous condition, unspecified] Onset: 5 12-06-2024 Episodic Other injuries and conditions due to external causes (18 sources) Open wound; Translations: [Other injury of [...] 3 03-09-2023 Episodic Other non-traumatic joint disorders (18 sources) Acute ankle pain; Translations: [Pain in [...] 2 03-24-2022 Episodic Phlebitis; thrombophlebitis and thromboembolism (18 sources) Thrombophlebitis of superficial vein of left upper limb; Translations: [Phlebitis and thrombophlebitis of other sites] Onset: 5 12-06-2024 Episodic Residual codes; unclassified (20 sources) Unable to perform personal care activity; Translations: [Other specified health status] Onset: 2 Resolved: 2 03-29-2022 Episodic Residual codes; unclassified (19 sources) Pain; Translations: [Pain, unspecified] Onset: 5 Resolved: 5 07-14-2021 Episodic Residual codes; unclassified (18 sources) Generalized acute body pains; Translations: [Pain, unspecified] Onset: 5 12-06-2024 Episodic Residual codes; unclassified (18 sources) Altered mental status; Translations: [Altered mental [...] Test Name Value Interpretation Reference Range Facility [facility] 05-28-2025 [facility] Telephone ([place]) YUSUF MEDINA ([id number]) 1935 [facility] Date Time Provider Department 05/28/25 TYESHA SINGLETON Drug Response [id number] During your visit today, we recorded the following information about you: Lidia Carbajal LPN 05/28/2025 2:12 PM Signed Received results of labs done on 05/27/2025 from [facility] (abnormal results in bold): CRP <3.00 0.0-3.0 sed rate 14 0-30 Report sent for scanning. Allergies As of Date: 05/28/2025 (No Known Allergies) Date Reviewed: 02/13/2025 Reviewed by: Margie Steiner, LIT - Fully Assessed Reason for Visit: Results [95] Cmt: Outside lab results Prescriptions as of 05/28/2025 - atorvastatin (LIPITOR) 40 mg tablet Take [...] this patient by: CAREGIVER José Miguel Swanson [facility] Problem List As Of Date 05/28/2025 Noted Resolved Osteoarth NOS-other site [M19.90] 09/15/2011 [...] 02/19/2011 02/12/2014 Gait disturbance [R26.9] 05/20/2011 05/11/2016 Hi (more content not included)... Normal [facility] CRPon 05-27-2025 C-REACTIVE PROT < 3.00 Normal 0.0-3.0 [facility] Comment on above: Order Comment: 107.1 Performed By: #### L 500.4050, L101.9900, L100.0500 #### [facility] [address] [place], [place], [id number] Erythrocyte Sed Rateon 05-27 SED RATE 14 mm/hr Normal 0-30 [facility] Comment on above: Order Comment: 107.1 Performed By: #### L 500.4050, L101.9900, L100.0500 #### [facility] [address] [place], [place], [id number] CNPNon 05-01-2025 CNPN Telephone (MARJORIE) YUSUF MEDINA ([id number]) 1935 F [place] Date Time Provider Department 05/01/25 TYESHA SINGLETON During your visit today, we recorded the following information about you: Ketty Remy LPN 05/01/2025 4:38 PM Signed Received results of labs done on [facility] from 04/29/25 (abnormal results in bold): CRP 21.0 sed rate 32 Report sent for scanning. Tyesha Singleton MD 05/02/2025 8:14 AM Signed Please ask her to come in for follow up with me. Also make sure she is taking the colchicine and mobic as prescribed. MD Solomon Pruett Trena, LPN 05/02/2025 10:30 AM Signed Called and spoke to [id number], Demetria. Patient is in a long-term care facility. Called facility [phone], but unable to speak to nurse as [...] this patient by: CAREGIVER José Miguel Swanson [facility] Problem List As Of Date [...] 10/31/2010 09/23/2014 (more content not included)... Normal [facility] CRPon 04-29-2025 C-REACTIVE PROT 21.00 mg/L High 0.0-3.0 [facility] Comment on above: Order Comment: 107.1 Performed By: #### L 500.4050, L101.9900, L100.0500 #### [facility] [address] [place], [place], [id number] Erythrocyte Sed Rateon 04-29 SED RATE 32 mm/hr High 0-30 [facility] Comment on above: Order Comment: 107.1 Performed By: #### L 500.4050, L101.9900, L100.0500 #### [facility] [address] [place], [place], [id number] Urine Cultureon 04-28-2025 URC 107-1 #2 Below infection level. PROBABLE PROTEUS SPECIES Escherichia coli [place] Count 11,000-25,000 Gram negative anabell Gram negative anabell Escherichia coli: REACTION Ampicillin Islt HEMANT >=32 R Ampicillin+Sulbac Islt HEMANT 16 Cefepime Islt HEMANT <=0.12 S cefTRIAXone Islt HEMANT 32 R Ciprofloxacin Islt HEMANT 0.5 I B-Lactamase Extended Susc Islt NEG Gentamicin Islt HEMNAT <=1 S levoFLOXacin Islt HEMANT 1 I Meropenem Islt HEMANT <=0.25 S Nitrofurantoin Islt HEMANT 32 S Pip+Tazo Islt HEMANT 8 S TMP SMX Islt HEMANT <=20 S Normal [facility] Comment on above: Performed By: #### L 500.4050, L101.9900, L100.0500 #### [facility] [address] [place], [address] Urinalysis, Completeon 04-26 CAST,FINE GRAN 0-5 SEEN Normal 0-5 [facility] Comment on above: Order Comment: 107.1 Performed By: #### L 500.4050, L101.9900, L100.0500 #### [facility] [address] [place], [address] CAST,HYALINE 5-10 SEEN Normal 0-5 [facility] Comment on above: Order Comment: 107.1 Performed By: #### L 500.4050, L101.9900, L100.0500 #### [facility] [address] [place], [address] BACTERIA 1+ /hpf Normal None Seen [facility] Comment on above: Order Comment: 107.1 Performed By: #### L 500.4050, L101.9900, L100.0500 #### [facility] [address] [place], [address] EPI,SQUAMOUS 5-10 SEEN Normal 5-10 [facility] Comment on above: Order Comment: 107.1 Performed By: #### L 500.4050, L101.9900, L100.0500 #### [facility] [address] [place], [address] WBC 0-5 SEEN Normal 0-5 [facility] Comment on above: Order Comment: 107.1 Performed By: #### L 500.4050, L101.9900, L100.0500 #### [facility] [address] [place], [address] Mucus Ql (Urine sed) 0 SEEN Normal [facility] Comment on above: Order Comment: 107.1 Performed By: #### L 500.4050, L101.9900, L100.0500 #### [facility] [address] [place], [address] RBC 0 SEEN Normal 0-5 [facility] Comment on above: Order Comment: 107.1 Performed By: #### L 500.4050, L101.9900, L100.0500 #### [facility] [address] [place], [address] Urine Cultureon 04-12-2025 URC 107-1 #2 Probable Proteus species. Below infection level. Escherichia coli [place] Count 50,000-80,000 Gram negative anabell Gram negative [...] TMP SMX Islt HEMANT <=20 S Normal [facility] Comment on above: Performed By: #### L 500.4050, L101.9900, L100.0500 #### [facility] [address] [place], [address] Urinalysis, Completeon 04-11 CAST,HYALINE 0-5 SEEN Normal 0-5 [facility] Comment on above: Order Comment: 107.1 Performed By: #### L 500.4050, L101.9900, L100.0500 #### [facility] [address] [place], [address] BACTERIA 1+ /hpf Normal None Seen [facility] Comment on above: Order Comment: 107.1 Performed By: #### L 500.4050, L101.9900, L100.0500 #### [facility] [address] [place], [address] EPI,SQUAMOUS 0-5 SEEN Normal 5-10 [facility] Comment on above: Order Comment: 107.1 Performed By: #### L 500.4050, L101.9900, L100.0500 #### [facility] [address] [place], [address] RBC 0-5 SEEN Normal 0-5 [facility] Comment on above: Order Comment: 107.1 Performed By: #### L 500.4050, L101.9900, L100.0500 #### [facility] [address] [place], [address] WBC 5-10 SEEN Normal 0-5 [facility] Comment on above: Order Comment: 107.1 Performed By: #### L 500.4050, L101.9900, L100.0500 #### [facility] [address] [place], [address] Mucus Ql (Urine sed) 0 SEEN Normal [facility] Comment on above: Order Comment: 107.1 Performed By: #### L 500.4050, L101.9900, L100.0500 #### [facility] [address] [place], [address] Bilirubin Test strip Ql (U)O rdered By: Mario Mak on 04-10-2025 Bilirubin Ql (U) Negative Negative [facility] Hyaline casts LM.LPF (Urine sed) [#/Area]Ordered By: Mario Mak on 04-10-2025 Hyaline casts (Urine sed) [#/Area] 0 /[LPF] 0-5 [facility] Ketones Test strip Ql (U)Ord ered By: Mario Mak on 04-10-2025 Ketones Ql (U) Negative Negative [facility] Microscopic analysis of urin e for red blood cells (RBC)Ordered By: Mario Mak on 04-10-2025 Microscopic analysis of urine for red blood cells (RBC) 0-5 SEEN /hpf 0-5 [facility] Mucus LM Ql (Urine sed)Order ed By: Mario Mak on 04-10-2025 Mucus Ql (Urine sed) 0 SEEN /hpf [facility] Nitrite Test strip Ql (U)Ord ered By: Mario Mak on 04-10-2025 Nitrite Ql (U) Negative Negative [facility] Protein Test strip Ql (U)Ord ered By: Mario Mak on 04-10-2025 Protein Ql (U) 100 mg/dl High Negative [facility] Squamous epithelial cells de tection in urine sediment by light microscopyOrdered By: Mario Mak on 04-10-2025 Epithelial cells.squamous LM Ql (Urine sed) 0-5 SEEN /hpf 5-10 [facility] Urine clarityOrdered By: Shwetha Mak on 04-10-2025 Clarity (U) Clear Clear [facility] Urine color determinationOrd ered By: Mario Mak on 04-10-2025 Color (U) Yellow Yellow [facility] Urine cultureOrdered By: Shwetha Mak on 04-10-2025 Bacteria identified Cx Nom (U) Escherichia coli Abnormal [facility] Bacteria identified Cx Nom (U) Negative Abnormal [facility] Urine glucose detectionOrder ed By: Mario Mak on 04-10-2025 Glucose Ql (U) Normal mg/dl Normal [facility] Urine leukocyte esterase det ection by dipstickOrdered By: Mario Mak on 04-10-2025 Leukocyte esterase Test strip Ql (U) 100 /ul High Negative [facility] Urine pHOrdered By: Mario reece on 04-10-2025 pH (U) 6.0 [pH] 5.0 - 8.0 [facility] Urine sediment bacteria coun t by microscopy (number/high power field)Ordered By: Mario Mak on 04-10-2025 Bacteria LM.HPF (Urine sed) [#/Area] 1 /[HPF] None Seen [facility] Urine specific gravity measu rementOrdered By: Mario Mak on 04-10-2025 Specific gravity (U) [Rel density] 1.015 1.002-1.030 [facility] Urine urobilinogen measureme ntOrdered By: Mario Mak on 04-10-2025 Urobilinogen Ql (U) Normal mg/dl Normal [facility] White blood cell countOrdere d By: Mario Mak on 04-10-2025 White blood cell count 5-10 SEEN /hpf 0-5 [facility] CRPon 04-01-2025 C-REACTIVE PROT < 3.00 Normal 0.0-3.0 [facility] Comment on above: Order Comment: 107.1 Performed By: #### L 503.6030, L503.0105, L506.0250, L500.4050, L100.0100, L101.9900 #### [facility] [address] [place], [address] Erythrocyte Sed Rateon 04-01 SED RATE 14 mm/hr Normal 0-30 [facility] Comment on above: Order Comment: 107.1 Performed By: #### L 503.6030, L503.0105, L506.0250, L500.4050, L100.0100, L101.9900 #### [facility] [address] [place], [place], [id number] Erythrocyte sedimentation ra teOrdered By: Mario Mak on 04-01-2025 ESR (Bld) [Velocity] 14 mm/h 0-30 [facility] Serum or plasma C reactive p rotein measurement (mass/volume)Ordered By: Mario Mak on 04-01-2025 CRP [Mass/Vol] mg/L 0.0-3.0 [facility] Hemoglobin A1c percentageOrd ered By: Mario Mak on 03-12-2025 HbA1c (Bld) [Mass fraction] 7.4 % High <=5.6 [facility] Comment on above: Normal < 5.7 % Predi abetic 5.7 - 6.4 % Diabetic >or= 6.5 % Please note range changes. Order Comment: 107.1 Result Comment: Norm al < 5.7 % Prediabetic 5.7 - 6.4 % Diabetic >or= 6.5 % Please note range changes. Performed By: #### L 500.4050, L101.9900, L100.0500 #### [facility] [address] [place], [address] CRPon 03-04-2025 C-REACTIVE PROT < 3.00 Normal 0.0-3.0 [facility] Comment on above: Order Comment: 107.1 Performed By: #### L 500.4050, L101.9900, L100.0500 #### [facility] [address] [place], [address] Erythrocyte Sed Rateon 03-04 SED RATE 12 mm/hr Normal 0-30 [facility] Comment on above: Order Comment: 107.1 Performed By: #### L 500.4050, L101.9900, L100.0500 #### [facility] [address] [place], [address] Erythrocyte sedimentation ra teOrdered By: Mario Mak on 03-04-2025 ESR (Bld) [Velocity] 12 mm/h 0-30 [facility] Serum or plasma C reactive p rotein measurement (mass/volume)Ordered By: Mario Mak on 03-04-2025 CRP [Mass/Vol] mg/L 0.0-3.0 [facility] CNOVon 02-13-2025 CNOV [facility] CNPNon 02-11-2025 CNPN Telephone (MARJORIE) YUSUF MEDINA ([id number]) 1935 F [place] Date Time Provider Department 02/11/25 TYESHA SINGLETON During your visit today, we recorded the following information about you: Solomon LidiaRIGOBERTO 02/11/2025 1:00 PM Signed Received results of labs done on 02/04/2025 from [facility] (abnormal results in bold): sed rate [...] this patient by: CAREGIVER José Miguel Swanson [facility] Problem List As Of Date [...] arthritis [M16.10] (more content not included)... Normal [facility] CRPon 02-04-2025 C-REACTIVE PROT < 3.00 Normal 0.0-3.0 [facility] Comment on above: Order Comment: 107.1 Performed By: #### L 500.4050, L101.9900, L100.0500 #### [facility] [address] [place], [place], [id number] CRP [Mass/Vol]Ordered By: Moreno on 02-04-2025 C-Reactive Protein Extended Range < 3.00 mg/L 0.0-3.0 [facility] Erythrocyte Sed Rateon 02-04 SED RATE 23 mm/hr Normal 0-30 [facility] Comment on above: Order Comment: 107.1 Performed By: #### L 500.4050, L101.9900, L100.0500 #### [facility] [address] [place], [address] Erythrocyte sedimentation ra teOrdered By: Mario Mak on 02-04-2025 ESR (Bld) [Velocity] 23 mm/h 0-30 [facility] Serum or plasma C reactive p rotein measurement (mass/volume)Ordered By: Mario Mak on 02-04-2025 CRP [Mass/Vol] mg/L 0.0-3.0 [facility] CNOVon 01-16-2025 CNOV [facility] Absolute lymphocyte countOrd ered By: Mario Mak on 01-15-2025 Lymphocytes Auto (Unsp spec) [#/Vol] 1.16 10*3/uL 0.83-4.51 [facility] Absolute neutrophil countOrd ered By: Mario Mak on 01-15-2025 Neutrophils (Bld) [#/Vol] 5.9 10*3/uL 2.0-7.7 [facility] Anion gap in Serum or Plasma Ordered By: Mario Mak on 01-15-2025 Anion gap [Moles/Vol] 12 mmol/L 5-15 [facility] Automated lymphocyte count a s percentage of total leukocytesOrdered By: Mario Mak on 01-15-2025 Lymphocytes/100 WBC Auto (Unsp spec) 14.3 % Low 19-41 [facility] BUN/creatinine ratioOrdered By: Mario Mak on 01-15-2025 Urea nitrogen/Creatinine [Mass ratio] 35.3 mg/mg High 10-20 [facility] Basic Metabolic Profile (BMP )on 01-15-2025 BUN/CRE 35.3 RATIO High 10- [facility] Comment on above: Order Comment: 107.1 Performed By: #### L 500.4050, L101.9900, L100.0500 #### [facility] [address] [place], [address] Calcium [Mass/Vol] 9.1 mg/dL Normal 7.6-11.0 [facility] Comment on above: Order Comment: 107.1 Performed By: #### L 500.4050, L101.9900, L100.0500 #### [facility] [address] [place], [address] Chloride [Moles/Vol] 101 mmol/L Normal 98-108 [facility] Comment on above: Order Comment: 107.1 Performed By: #### L 500.4050, L101.9900, L100.0500 #### [facility] [address] [place], [address] CO2 [Moles/Vol] 26.0 mmol/L Normal 21.0-32.0 [facility] Comment on above: Order Comment: 107.1 Performed By: #### L 500.4050, L101.9900, L100.0500 #### [facility] [address] [place], [address] Creatinine [Mass/Vol] 0.76 mg/dL Normal 0.70-1.20 [facility] Comment on above: Order Comment: 107.1 Performed By: #### L 500.4050, L101.9900, L100.0500 #### [facility] [address] [place], [address] GAP 12 Normal 5-15 [facility] Comment on above: Order Comment: 107.1 Performed By: #### L 500.4050, L101.9900, L100.0500 #### [facility] [address] [place], [address] GFR/1.73 sq M.predicted among non-blacks MDRD (S/P/Bld) [Vol rate/Area] 75 mL/min/{1.73_m2} Normal >60 [facility] Comment on above: Order Comment: 107.1 Result Comment: mL/m in/1.73m2 CKD-EPI Creatinine Equation (2020) Performed By: #### L 500.4050, L101.9900, L100.0500 #### [facility] [address] [place], [address] Glucose [Mass/Vol] 108 mg/dL High 70-99 [facility] Comment on above: Order Comment: 107.1 Performed By: #### L 500.4050, L101.9900, L100.0500 #### [facility] [address] [place], [address] Potassium [Moles/Vol] 4.6 mmol/L Normal 3.3-5.1 [facility] Comment on above: Order Comment: 107.1 Performed By: #### L 500.4050, L101.9900, L100.0500 #### [facility] [address] [place], [address] Sodium [Moles/Vol] 139 mmol/L Normal 133-145 [facility] Comment on above: Order Comment: 107.1 Performed By: #### L 500.4050, L101.9900, L100.0500 #### [facility] [address] [place], [address] Urea nitrogen [Mass/Vol] 27 mg/dL High 4-19 [facility] Comment on above: Order Comment: 107.1 Performed By: #### L 500.4050, L101.9900, L100.0500 #### [facility] [address] [place], [address] Basophil percentageOrdered B y: Mario Mak on 01-15-2025 Basophils/100 WBC (Bld) 0.5 % 0-1 [facility] CBC W/Diff, Automatedon 03-0 Absolute Lymph 1.16 X10 3/uL Normal 0.83-4.51 [facility] Comment on above: Order Comment: 107.1 Performed By: #### L 500.4050, L101.9900, L100.0500 #### [facility] [address] [place], [address] Absolute Neut 5.9 X10 3/uL Normal 2.0-7.7 [facility] Comment on above: Order Comment: 107.1 Performed By: #### L 500.4050, L101.9900, L100.0500 #### [facility] [address] [place], [address] Basophils/100 WBC (Bld) 0.5 % Normal 0-1 [facility] Comment on above: Order Comment: 107.1 Performed By: #### L 500.4050, L101.9900, L100.0500 #### [facility] [address] [place], [address] Eosinophils/100 WBC (Bld) 4.1 % Normal 0-5 [facility] Comment on above: Order Comment: 107.1 Performed By: #### L 500.4050, L101.9900, L100.0500 #### [facility] [address] [place], [address] Erythrocyte distribution width (RBC) [Ratio] 16.0 % High 11.6-14.6 [facility] Comment on above: Order Comment: 107.1 Performed By: #### L 500.4050, L101.9900, L100.0500 #### [facility] [address] [place], [address] Hematocrit (Bld) [Volume fraction] 29.0 % Low 37-47 [facility] Comment on above: Order Comment: 107.1 Performed By: #### L 500.4050, L101.9900, L100.0500 #### [facility] [address] [place], [address] Hemoglobin (Bld) [Mass/Vol] 9.4 g/dL Low 12.0-15.0 [facility] Comment on above: Order Comment: 107.1 Performed By: #### L 500.4050, L101.9900, L100.0500 #### [facility] [address] [place], [address] IG% 1.100 High 0.0-0.9 [facility] Comment on above: Order Comment: 107.1 Result Comment: IG% - Immature Granulocytes (promyelocytes, myelocytes and metamyelocytes) > 1% indicates that a LEFT SHIFT is Present. Performed By: #### L 500.4050, L101.9900, L100.0500 #### [facility] [address] [place], [address] Lymphocytes/100 WBC (Bld) 14.3 % Low 19-41 [facility] Comment on above: Order Comment: 107.1 Performed By: #### L 500.4050, L101.9900, L100.0500 #### [facility] [address] [place], [address] MCH (RBC) [Entitic mass] 29.5 pg Normal 27.0-32.0 [facility] Comment on above: Order Comment: 107.1 Performed By: #### L 500.4050, L101.9900, L100.0500 #### [facility] [address] [place], [address] MCHC (RBC) [Mass/Vol] 32.4 g/dL Normal 32-36 [facility] Comment on above: Order Comment: 107.1 Performed By: #### L 500.4050, L101.9900, L100.0500 #### [facility] [address] [place], [address] MCV (RBC) [Entitic vol] 90.9 fL Normal 81-99 [facility] Comment on above: Order Comment: 107.1 Performed By: #### L 500.4050, L101.9900, L100.0500 #### [facility] [address] [place], [address] Monocytes/100 WBC (Bld) 8.1 % Normal 0-10 [facility] Comment on above: Order Comment: 107.1 Performed By: #### L 500.4050, L101.9900, L100.0500 #### [facility] [address] [place], [address] Neutrophils/100 WBC (Bld) 71.9 % High 47-70 [facility] Comment on above: Order Comment: 107.1 Performed By: #### L 500.4050, L101.9900, L100.0500 #### [facility] [address] [place], [address] Nucleated RBC (Bld) [#/Vol] 0 10*3/uL Normal 0-5 [facility] Comment on above: Order Comment: 107.1 Performed By: #### L 500.4050, L101.9900, L100.0500 #### [facility] [address] [place], [address] Platelet mean volume (Bld) [Entitic vol] 9.4 fL Normal 6.2-12.0 [facility] Comment on above: Order Comment: 107.1 Performed By: #### L 500.4050, L101.9900, L100.0500 #### [facility] [address] [place], [address] Platelets (Bld) [#/Vol] 390 10*3/uL Normal 150-450 [facility] Comment on above: Order Comment: 107.1 Performed By: #### L 500.4050, L101.9900, L100.0500 #### [facility] [address] [place], [address] RBC (Bld) [#/Vol] 3.19 10*6/uL Low 4.2-5.4 [facility] Comment on above: Order Comment: 107.1 Performed By: #### L 500.4050, L101.9900, L100.0500 #### [facility] [address] [place], [address] RDW SD 53.4 fl High 35.1-43.9 [facility] Comment on above: Order Comment: 107.1 Performed By: #### L 500.4050, L101.9900, L100.0500 #### [facility] [address] [place], [address] WBC (Bld) [#/Vol] 8.1 10*3/uL Normal 4.4-11.0 [facility] Comment on above: Order Comment: 107.1 Performed By: #### L 500.4050, L101.9900, L100.0500 #### [facility] [address] [place], [address] Carbon dioxide, total [Moles /volume] in Central venous bloodOrdered By: Mario Mak on 01-15-2025 CO2 [Moles/Vol] 26.0 mmol/L 21.0-32.0 [facility] Chloride assayOrdered By: Moreno on 01-15-2025 Chloride [Moles/Vol] 101 mmol/L 98-108 [facility] Eosinophil percentageOrdered By: Mario Mak on 01-15-2025 Eosinophils/100 WBC (Bld) 4.1 % 0-5 [facility] Erythrocyte distribution wid th (RBC) [Ratio]Ordered By: Mario Mak on 01-15-2025 Erythrocyte distribution width (RBC) [Entitic vol] 53.4 fL High 35.1-43.9 [facility] Erythrocyte distribution wid th ratioOrdered By: Mario Mak on 01-15-2025 Erythrocyte distribution width (RBC) [Ratio] 16.0 % High 11.6-14.6 [facility] Erythrocyte distribution wid th standard deviationOrdered By: Mario Mak on 01-15-2025 Erythrocyte distribution width (RBC) [Ratio] 53.4 fl High 35.1-43.9 [facility] GFR/1.73 sq M.predicted ida g non-blacks MDRD (S/P/Bld) [Vol rate/Area]Ordered By: Mario Mak on 01-15-2025 Estimated GFR (MDRD) Non-Af Amer 75 >60 [facility] Comment on above: mL/min/1.73m2 CKD-EP I Creatinine Equation (2020) Glomerular filtration rate ( GFR) estimation/1.73 sq m using serum, plasma, or whole bOrdered By: Mario Mak on 01-15-2025 GFR/1.73 sq M.predicted among non-blacks MDRD (S/P/Bld) [Vol rate/Area] 75 mL/min/{1.73_m2} >60 [facility] Comment on above: mL/min/1.73m2 CKD-EP I Creatinine Equation (2020) Hematocrit Auto (Bld) [Volum e fraction]Ordered By: Mario Mak on 01-15-2025 Hematocrit (Bld) [Volume fraction] 29.0 % Low 37-47 [facility] Hemoglobin measurementOrdere d By: Mario Mak on 01-15-2025 Hemoglobin (Bld) [Mass/Vol] 9.4 g/dL Low 12.0-15.0 [facility] Immature granulocytes/100 WB C Auto (Bld)Ordered By: Mario Mak on 01-15-2025 Immature granulocytes/100 WBC (Bld) 1.100 % High 0.0-0.9 [facility] Comment on above: IG% - Immature Granu locytes (promyelocytes, myelocytes and metamyelocytes) > 1% indicates that a LEFT SHIFT is Present. Lymphocytes Auto (Unsp spec) [#/Vol]Ordered By: Mario Mak on 01-15-2025 Lymphocytes (Bld) [#/Vol] 1.16 10*3/uL 0.83-4.51 [facility] Lymphocytes/100 WBC Auto (Un sp spec)Ordered By: Mario Mak on 01-15-2025 Lymphocytes/100 WBC (Bld) 14.3 % Low 19-41 [facility] MCV (mean corpuscular volume ) determinationOrdered By: Mario Mak on 01-15-2025 MCV (RBC) [Entitic vol] 90.9 fL 81-99 [facility] Mean corpuscular hemoglobin (MCH) determinationOrdered By: Mario Mak on 01-15-2025 MCH (RBC) [Entitic mass] 29.5 pg 27.0-32.0 [facility] Mean corpuscular hemoglobin concentration (MCHC) determinationOrdered By: Mario Mak on 01-15-2025 MCHC (RBC) [Mass/Vol] 32.4 g/dL 32-36 [facility] Mean platelet volume determi nationOrdered By: Mario Mak on 01-15-2025 Platelet mean volume (Bld) [Entitic vol] 9.4 fL 6.2-12.0 [facility] Monocyte percentageOrdered B y: Mario Mak on 01-15-2025 Monocytes/100 WBC (Bld) 8.1 % 0-10 [facility] Neutrophil percentageOrdered By: Mario Mak on 01-15-2025 Neutrophils/100 WBC (Bld) 71.9 % High 47-70 [facility] Nucleated red blood cell per centageOrdered By: Mario Mak on 01-15-2025 Nucleated RBC/100 WBC (Bld) [Ratio] 0 % 0-5 [facility] Platelet countOrdered By: Moreno on 01-15-2025 Platelets (Bld) [#/Vol] 390 10*3/uL 150-450 [facility] Potassium (Unsp spec) [Mass/ Vol]Ordered By: Mario Mak on 01-15-2025 Potassium [Moles/Vol] 4.6 mmol/L 3.3-5.1 [facility] Potassium measurement (mass/ volume)Ordered By: Mario Mak on 01-15-2025 Potassium (Unsp spec) [Mass/Vol] 4.6 mmol/L 3.3-5.1 [facility] RBC Auto (Bld) [#/Vol]Ordere d By: Mario Mak on 01-15-2025 RBC (Bld) [#/Vol] 3.19 10*6/uL Low 4.2-5.4 [facility] Serum creatinine measurement (mass/volume)Ordered By: Mario Mak on 01-15-2025 Creatinine [Mass/Vol] 0.76 mg/dL 0.70-1.20 [facility] Serum glucose measurement (m ass/volume)Ordered By: Mario Mak on 01-15-2025 Glucose [Mass/Vol] 108 mg/dL High 70-99 [facility] Serum or plasma calcium roma urement (mass/volume)Ordered By: Mario Mak on 01-15-2025 Calcium [Mass/Vol] 9.1 mg/dL 7.6-11.0 [facility] Serum or plasma urea nitroge n measurement (mass/volume)Ordered By: Mario Mak on 01-15-2025 Urea nitrogen [Mass/Vol] 27 mg/dL High 4-19 [facility] Sodium levelOrdered By: Mario Mak on 01-15-2025 Sodium [Moles/Vol] 139 mmol/L 133-145 [facility] White blood cell (WBC) count Ordered By: Mario Mak on 01-15-2025 WBC (Bld) [#/Vol] 8.1 10*3/uL 4.4-11.0 [facility] lymphocyte countOrd ered By: Mario Mak on 01-07-2025 Lymphocytes Auto (Unsp spec) [#/Vol] 0.98 10*3/uL 0.83-4.51 [facility] Absolute neutrophil countOrd ered By: Mario Mak on 01-07-2025 Neutrophils (Bld) [#/Vol] 5.7 10*3/uL 2.0-7.7 [facility] Albumin to globulin ratioOrd ered By: Mario Mak on 01-07-2025 Albumin/Globulin [Mass ratio] 0.6 {ratio} Low 0.9-2.4 [facility] Automated lymphocyte count a s percentage of total leukocytesOrdered By: Mario Mak on 01-07-2025 Lymphocytes/100 WBC Auto (Unsp spec) 12.6 % Low 19-41 [facility] Basophil percentageOrdered B y: Mario Mak on 01-07-2025 Basophils/100 WBC (Bld) 0.5 % 0-1 [facility] Bilirubin, totalOrdered By: Mario Mak on 01-07-2025 Bilirubin [Mass/Vol] 0.20 mg/dL 0.20-1.00 [facility] Comment on above: For patients on eltr ombopag therapy, use of Dimension [place] TBIL is not recommended. Blood urea nitrogen (BUN)/cr eatinine ratioOrdered By: Mario Mak on 01-07-2025 Urea nitrogen/Creatinine [Mass ratio] 37.0 mg/mg High 10-20 [facility] CBC W/Diff, Automatedon 12-16 Absolute Lymph 0.98 X10 3/uL Normal 0.83-4.51 [facility] Comment on above: Order Comment: 107.1 Performed By: #### L 500.4050, L101.9900, L100.0500 #### [facility] [address] [place], [address] Absolute Neut 5.7 X10 3/uL Normal 2.0-7.7 [facility] Comment on above: Order Comment: 107.1 Performed By: #### L 500.4050, L101.9900, L100.0500 #### [facility] [address] [place], [address] Basophils/100 WBC (Bld) 0.5 % Normal 0-1 [facility] Comment on above: Order Comment: 107.1 Performed By: #### L 500.4050, L101.9900, L100.0500 #### [facility] [address] [place], [address] Eosinophils/100 WBC (Bld) 3.2 % Normal 0-5 [facility] Comment on above: Order Comment: 107.1 Performed By: #### L 500.4050, L101.9900, L100.0500 #### [facility] [address] [place], [address] Erythrocyte distribution width (RBC) [Ratio] 16.5 % High 11.6-14.6 [facility] Comment on above: Order Comment: 107.1 Performed By: #### L 500.4050, L101.9900, L100.0500 #### [facility] [address] [place], [address] Hematocrit (Bld) [Volume fraction] 28.5 % Low 37-47 [facility] Comment on above: Order Comment: 107.1 Performed By: #### L 500.4050, L101.9900, L100.0500 #### [facility] [address] [place], [address] Hemoglobin (Bld) [Mass/Vol] 8.9 g/dL Low 12.0-15.0 [facility] Comment on above: Order Comment: 107.1 Performed By: #### L 500.4050, L101.9900, L100.0500 #### [facility] [address] [place], [address] IG% 0.600 Normal 0.0-0.9 [facility] Comment on above: Order Comment: 107.1 Result Comment: IG% - Immature Granulocytes (promyelocytes, myelocytes and metamyelocytes) > 1% indicates that a LEFT SHIFT is Present. Performed By: #### L 500.4050, L101.9900, L100.0500 #### [facility] [address] [place], [address] Lymphocytes/100 WBC (Bld) 12.6 % Low 19-41 [facility] Comment on above: Order Comment: 107.1 Performed By: #### L 500.4050, L101.9900, L100.0500 #### [facility] [address] [place], [address] MCH (RBC) [Entitic mass] 28.7 pg Normal 27.0-32.0 [facility] Comment on above: Order Comment: 107.1 Performed By: #### L 500.4050, L101.9900, L100.0500 #### [facility] [address] [place], [address] MCHC (RBC) [Mass/Vol] 31.2 g/dL Low 32-36 [facility] Comment on above: Order Comment: 107.1 Performed By: #### L 500.4050, L101.9900, L100.0500 #### [facility] [address] [place], [address] MCV (RBC) [Entitic vol] 91.9 fL Normal 81-99 [facility] Comment on above: Order Comment: 107.1 Performed By: #### L 500.4050, L101.9900, L100.0500 #### [facility] [address] [place], [address] Monocytes/100 WBC (Bld) 9.9 % Normal 0-10 [facility] Comment on above: Order Comment: 107.1 Performed By: #### L 500.4050, L101.9900, L100.0500 #### [facility] [address] [place], [address] Neutrophils/100 WBC (Bld) 73.2 % High 47-70 [facility] Comment on above: Order Comment: 107.1 Performed By: #### L 500.4050, L101.9900, L100.0500 #### [facility] [address] [place], [address] Nucleated RBC (Bld) [#/Vol] 0 10*3/uL Normal 0-5 [facility] Comment on above: Order Comment: 107.1 Performed By: #### L 500.4050, L101.9900, L100.0500 #### [facility] [address] [place], [address] Platelet mean volume (Bld) [Entitic vol] 9.8 fL Normal 6.2-12.0 [facility] Comment on above: Order Comment: 107.1 Performed By: #### L 500.4050, L101.9900, L100.0500 #### [facility] [address] [place], [address] Platelets (Bld) [#/Vol] 319 10*3/uL Normal 150-450 [facility] Comment on above: Order Comment: 107.1 Performed By: #### L 500.4050, L101.9900, L100.0500 #### [facility] [address] [place], [address] RBC (Bld) [#/Vol] 3.10 10*6/uL Low 4.2-5.4 [facility] Comment on above: Order Comment: 107.1 Performed By: #### L 500.4050, L101.9900, L100.0500 #### [facility] [address] [place], [address] RDW SD 56.5 fl High 35.1-43.9 [facility] Comment on above: Order Comment: 107.1 Performed By: #### L 500.4050, L101.9900, L100.0500 #### [facility] [address] [place], [address] WBC (Bld) [#/Vol] 7.8 10*3/uL Normal 4.4-11.0 [facility] Comment on above: Order Comment: 107.1 Performed By: #### L 500.4050, L101.9900, L100.0500 #### [facility] [address] [place], [address] Carbon dioxide measurementOr dered By: Mario Mak on 01-07-2025 CO2 [Moles/Vol] 28.0 mmol/L 21.0-32.0 [facility] Chloride measurementOrdered By: Mario Mak on 01-07-2025 Chloride [Moles/Vol] 105 mmol/L 98-107 [facility] Comprehensive Metabolic Prof ilon 01-07-2025 Albumin [Mass/Vol] 2.1 g/dL Low 3.2-5.0 [facility] Comment on above: Performed By: #### L 500.4050, L101.9900, L100.0500 #### [facility] [address] [place], [address] Albumin/Globulin [Mass ratio] 0.6 {ratio} Low 0.9-2.4 [facility] Comment on above: Performed By: #### L 500.4050, L101.9900, L100.0500 #### [facility] [address] [place], [address] ALK P 95 U/L Normal 45-117 [facility] Comment on above: Performed By: #### L 500.4050, L101.9900, L100.0500 #### [facility] [address] [place], [address] ALT [Catalytic activity/Vol] U/L Low 13-56 [facility] Comment on above: Performed By: #### L 500.4050, L101.9900, L100.0500 #### [facility] [address] [place], [address] AST [Catalytic activity/Vol] 21 U/L Normal 15-37 [facility] Comment on above: Performed By: #### L 500.4050, L101.9900, L100.0500 #### [facility] [address] [place], [address] Bilirubin [Mass/Vol] 0.20 mg/dL Normal 0.20-1.00 [facility] Comment on above: Result Comment: For patients on eltrombopag therapy, use of Dimension [place] TBIL is not recommended. Performed By: #### L 500.4050, L101.9900, L100.0500 #### [facility] [address] [place], [address] BUN/CRE 37.0 RATIO High 10-20 [facility] Comment on above: Performed By: #### L 500.4050, L101.9900, L100.0500 #### [facility] [address] [place], [address] CA,Total 8.6 mg/dL Normal 8.5-10.1 [facility] Comment on above: Performed By: #### L 500.4050, L101.9900, L100.0500 #### [facility] [address] [place], [address] Chloride [Moles/Vol] 105 mmol/L Normal 98-107 [facility] Comment on above: Performed By: #### L 500.4050, L101.9900, L100.0500 #### [facility] [address] [place], [address] CO2 [Moles/Vol] 28.0 mmol/L Normal 21.0-32.0 [facility] Comment on above: Performed By: #### L 500.4050, L101.9900, L100.0500 #### [facility] [address] [place], [address] Creatinine [Mass/Vol] 0.76 mg/dL Normal 0.55-1.02 [facility] Comment on above: Result Comment: The validity of the calculated GFR GFRAA in patients over 70 years has not been determined. Clinical correlation is essential. Performed By: #### L 500.4050, L101.9900, L100.0500 #### [facility] [address] [place], [address] EST GFR - AA 93 mL/min Normal >60 [facility] Comment on above: Result Comment: Afri can [place] GFR Calc Performed By: #### L 500.4050, L101.9900, L100.0500 #### [facility] [address] [place], [address] GAP 7 Normal 5-15 [facility] Comment on above: Performed By: #### L 500.4050, L101.9900, L100.0500 #### [facility] [address] [place], [address] GFR/1.73 sq M.predicted among non-blacks MDRD (S/P/Bld) [Vol rate/Area] 77 mL/min/{1.73_m2} Normal >60 [facility] Comment on above: Result Comment: Non- GFR Calc Performed By: #### L 500.4050, L101.9900, L100.0500 #### [facility] [address] [place], [address] Globulin (S) [Mass/Vol] 3.4 g/dL Normal 2.2-4.2 [facility] Comment on above: Performed By: #### L 500.4050, L101.9900, L100.0500 #### [facility] [address] [place], [address] Glucose [Mass/Vol] 58 mg/dL Low 74-106 [facility] Comment on above: Performed By: #### L 500.4050, L101.9900, L100.0500 #### [facility] [address] [place], [address] Potassium [Moles/Vol] 4.1 mmol/L Normal 3.5-5.1 [facility] Comment on above: Performed By: #### L 500.4050, L101.9900, L100.0500 #### [facility] [address] [place], [address] Sodium [Moles/Vol] 139 mmol/L Normal 136-145 [facility] Comment on above: Performed By: #### L 500.4050, L101.9900, L100.0500 #### [facility] [address] [place], [address] T PROT 5.5 g/dL Low 6.4-8.2 [facility] Comment on above: Performed By: #### L 500.4050, L101.9900, L100.0500 #### [facility] [address] [place], [address] Urea nitrogen [Mass/Vol] 28 mg/dL High 7-18 [facility] Comment on above: Performed By: #### L 500.4050, L101.9900, L100.0500 #### [facility] [address] [place], [address] Eosinophil percentageOrdered By: Mario Mak on 01-07-2025 Eosinophils/100 WBC (Bld) 3.2 % 0-5 [facility] Erythrocyte Sed Rateon 01-07 SED RATE 41 mm/hr High 0-30 [facility] Comment on above: Order Comment: 107-1 Performed By: #### L 100.0100, L500.4050, L101.9900 #### [facility] [address] [place], [address] Erythrocyte distribution wid th (RBC) [Ratio]Ordered By: Mario Mak on 01-07-2025 Erythrocyte distribution width (RBC) [Entitic vol] 56.5 fL High 35.1-43.9 [facility] Erythrocyte distribution wid th ratioOrdered By: Mario Mak on 01-07-2025 Erythrocyte distribution width (RBC) [Ratio] 16.5 % High 11.6-14.6 [facility] Erythrocyte distribution wid th standard deviationOrdered By: Mario Mak on 01-07-2025 Erythrocyte distribution width (RBC) [Ratio] 56.5 fl High 35.1-43.9 [facility] Erythrocyte sedimentation ra teOrdered By: Mario Mak on 01-07-2025 ESR (Bld) [Velocity] 41 mm/h High 0-30 [facility] Estimated glomerular filtrat ion rate (GFR) AmericanOrdered By: Mario Mak on 01-07-2025 Estimated GFR (MDRD) Amer 93 mL/min >60 [facility] Comment on above: GFR Calc Glomerular filtration rate ( GFR) estimationOrdered By: Mario Mak on 01-07-2025 Estimated GFR (MDRD) Non-Af Amer 77 mL/min >60 [facility] Comment on above: Non- GFR Calc GFR/1.73 sq M.predicted among non-blacks MDRD (S/P/Bld) [Vol rate/Area] 77 mL/min/{1.73_m2} >60 [facility] Comment on above: Non- GFR Calc Glucose measurementOrdered B y: Mario Mak on 01-07-2025 Glucose [Mass/Vol] 58 mg/dL Low 74-106 [facility] Hematocrit Auto (Bld) [Volum e fraction]Ordered By: Mario Mak on 01-07-2025 Hematocrit (Bld) [Volume fraction] 28.5 % Low 37-47 [facility] Hemoglobin measurementOrdere d By: Mario Mak on 01-07-2025 Hemoglobin (Bld) [Mass/Vol] 8.9 g/dL Low 12.0-15.0 [facility] Immature granulocytes/100 WB C Auto (Bld)Ordered By: Mario Mak on 01-07-2025 Immature granulocytes/100 WBC (Bld) 0.600 % 0.0-0.9 [facility] Comment on above: IG% - Immature Granu locytes (promyelocytes, myelocytes and metamyelocytes) > 1% indicates that a LEFT SHIFT is Present. Laboratory - Chemistry and C hemistry - challengeOrdered By: Mario Mak on 01-07-2025 AST [Catalytic activity/Vol] 21 U/L 15-37 [facility] Lymphocytes Auto (Unsp spec) [#/Vol]Ordered By: Mario Mak on 01-07-2025 Lymphocytes (Bld) [#/Vol] 0.98 10*3/uL 0.83-4.51 [facility] Lymphocytes/100 WBC Auto (Un sp spec)Ordered By: Mario Mak on 01-07-2025 Lymphocytes/100 WBC (Bld) 12.6 % Low 19-41 [facility] MCV (mean corpuscular volume ) determinationOrdered By: Mario Mak on 01-07-2025 MCV (RBC) [Entitic vol] 91.9 fL 81-99 [facility] Mean corpuscular hemoglobin (MCH) determinationOrdered By: Mario Mak on 01-07-2025 MCH (RBC) [Entitic mass] 28.7 pg 27.0-32.0 [facility] Mean corpuscular hemoglobin concentration (MCHC) determinationOrdered By: Mario Mak on 01-07-2025 MCHC (RBC) [Mass/Vol] 31.2 g/dL Low 32-36 [facility] Mean platelet volume determi nationOrdered By: Mario Mak on 01-07-2025 Platelet mean volume (Bld) [Entitic vol] 9.8 fL 6.2-12.0 [facility] Monocyte percentageOrdered B y: Mario Mak on 01-07-2025 Monocytes/100 WBC (Bld) 9.9 % 0-10 [facility] Neutrophil percentageOrdered By: Mario Mak on 01-07-2025 Neutrophils/100 WBC (Bld) 73.2 % High 47-70 [facility] Nucleated red blood cell per centageOrdered By: Mario Mak on 01-07-2025 Nucleated RBC/100 WBC (Bld) [Ratio] 0 % 0-5 [facility] Platelet countOrdered By: Moreno on 01-07-2025 Platelets (Bld) [#/Vol] 319 10*3/uL 150-450 [facility] Potassium measurementOrdered By: Mario Mak on 01-07-2025 Potassium [Moles/Vol] 4.1 mmol/L 3.5-5.1 [facility] RBC Auto (Bld) [#/Vol]Ordere d By: Mario Mak on 01-07-2025 RBC (Bld) [#/Vol] 3.10 10*6/uL Low 4.2-5.4 [facility] Serum anion gap measurementO rdered By: Mario Mak on 01-07-2025 Anion gap [Moles/Vol] 7 mmol/L 5-15 [facility] Serum globulin measurementOr dered By: Mario Mak on 01-07-2025 Globulin (S) [Mass/Vol] 3.4 g/dL 2.2-4.2 [facility] Serum or plasma alanine melara otransferase (ALT) measurementOrdered By: Mario Mak on 01-07-2025 ALT [Catalytic activity/Vol] U/L Low 13-56 [facility] Serum or plasma albumin roma urement (mass/volume)Ordered By: Mario Mak on 01-07-2025 Albumin [Mass/Vol] 2.1 g/dL Low 3.2-5.0 [facility] Serum or plasma alkaline krystal sphatase measurementOrdered By: Mario Mak on 01-07-2025 ALP [Catalytic activity/Vol] 95 U/L 45-117 [facility] Serum or plasma calcium roma urement (mass/volume)Ordered By: Mario Mak on 01-07-2025 Calcium [Mass/Vol] 8.6 mg/dL 8.5-10.1 [facility] Serum or plasma creatinine m easurement (mass/volume)Ordered By: Mario Mak on 01-07-2025 Creatinine [Mass/Vol] 0.76 mg/dL 0.55-1.02 [facility] Comment on above: The validity of the calculated GFR & GFRAA in patients over 70 years has not been determined. Clinical correlation is essential. Serum or plasma urea nitroge n measurement (mass/volume)Ordered By: Mario Mak on 01-07-2025 Urea nitrogen [Mass/Vol] 28 mg/dL High 7-18 [facility] Sodium levelOrdered By: Mario Mak on 01-07-2025 Sodium [Moles/Vol] 139 mmol/L 136-145 [facility] Total proteinOrdered By: Shwetha Mak on 01-07-2025 Protein [Mass/Vol] 5.5 g/dL Low 6.4-8.2 [facility] White blood cell (WBC) count Ordered By: Mario Mak on 01-07-2025 WBC (Bld) [#/Vol] 7.8 10*3/uL 4.4-11.0 [facility] Pyridoxine [Mass/Vol]on 12-16 Interpretation and review of laboratory results Abnormal [facility] VITAMIN B6/PYRIDOXINon 01-06 Pyridoxine [Mass/Vol] 13.8 nmol/L Low 20.0 - 125.0 nmol/L [facility] Comment on above: INTERPRETIVE INFORMA TION: Vitamin B6 (Pyridoxal 5-Phosphate) Pyridoxal 5'-phosphate measured in a specimen collected following an 8-hour or overnight fast accurately indicates vitamin B6 nutritional status. Non-fasting specimen concentration reflects recent vitamin intake. This test was developed and its performance characteristics determined by [facility]. It has not been cleared or approved by the [place] Food and Drug Administration. This test was performed in a CLIA certified laboratory and is intended for clinical purposes. Performed By: [facility] [address] [place] [address] Senior Policy Analyst: Marcellus Raza MD, PhD CLIA Number: [id number] [facility] 01-04-2025 OV Office Visit (MARJORIE ) YUSUF EMDINA ([id number]) 1935 F [place]BERTO Date Time Provider Department [...] with dramatic improvement Currently she is in [place] and here with AVELINA and nurse aid who gives the history Currently she is pain free Also spoke with [place] nurse [place] who states patient does nto complain of pain, pretty sedentary. No specific complaints at [place] per nurse Currently doing well, no pain at present Family states after debridement of rt ankle- patient feels weak and does not want to walk around Was living alone until 2 months ago and now at [place]. Prior to debridement , patient was not [...] L REMV CATARACT EXTRACAP,INSERT LENS Bilateral 2020 [facility] predniSONE (DELTASONE) 5 mg tablet Take 5 [...] by mouth (more content not included)... [facility]AC[facility]TA [facility] (4CQ) CAROLYUSUF ([id number]) 1935 F [place]BERT[place] Date Time Provider Department 01/03/25 MIGDALIA CRAMER 4CQ During your visit today, we recorded the following information about you: Alicia Coffey 01/03/2025 12:30 PM Addendum Received call from [facility]. The outbound call center representative has appointment with patient's sons this afternoon at 2 pm and is requesting Advanced Directive/POA paperwork that was scanned in on 12/31. Advised to send records request, but she is concerned about not having this paperwork by 2 pm meeting. Kitchen Mechanic can be reached at [phone]. Fax number given for records request as well. Jame Tam MA 01/03/2025 4:16 PM Signed Records release was not signed. Please review and advice. Willie Kaur APRN.DRAKE 01/04/2025 9:45 AM Signed Please advise [facility] that if patient signs record release, they can get any records they need from [facility] medical records. Or family can sign record request at [facility] can fax Family Medicine the records request and I can send what I can. Our fax is [phone]. Willie Kaur APRN.Keke Page RN 01/04/2025 12:12 PM Signed Spoke with a ward secretary at [facility], he took the info again to get us a signed records release faxed to the office. Please watch for fax Willie Kaur APRN.DRAKE 01/04/2025 4:20 PM Signed The initial note indicates that a "outbound call center representative" is calling and gave return phone number [phone]. I called this number and phone rang and rang numerous times. No voice mail. I can print of POA, stamp and fax since this is a facility to facility request. Given to nursing. If the "outbound call center representative" needs anything else and calls back, Please ask for name and direct line so that return call can be made. Thank you. Willie Kaur APRN.Sandrita Arevalo LPN 01/04/2025 4:29 PM Signed Received record release from [facility]. Faxed to number provided on form, [...] this patient by: CAREGIVER José Miguel Swanson [facility] Problem List As Of Date 01/03/2025 Noted Resolved Osteoarth NOS-other site [M19.90] 09/15/2011 BENIGN HYPERTENSION [I10] 12/01/2016 Diabetes mellitus (HCC) [E11.9] 04/10/2003 Esophageal reflux [K21.9] 06/15/2006 Lumbago [M54.50] 05/31/2007 09/15/2011 Urgency of urination [R39.15] (more content not included)... Normal [facility] COPPER BLOODon 01-03-2025 Copper [Mass/Vol] 128 ug/dL 80 - 155 ug/dL [facility] Comment on above: This test was corina ped, and its performance characteristics determined by the [facility] Department of Pathology and Laboratory Medicine. It has not been cleared or approved by the FDA. The [facility] Department of Pathology and Laboratory Medicine is regulated under CLIA as qualified to perform high-complexity testing. This test is used for clinical purposes. It should not be regarded as investigational or for research. Interpretation and review of laboratory results Normal [facility] FERRITINon 01-03-2025 Ferritin [Mass/Vol] 865 ng/mL High 14.7 - 2 05.1 ng/mL [facility] FOLATE, SERUMon 01-03-2025 Folate [Mass/Vol] 14.8 ng/mL 4.7 - PINF ng/mL [facility] Ferritin [Mass/Vol]on 2024 Interpretation and review of laboratory results Abnormal [facility] Iron and Iron binding capaci ty panelon 01-03-2025 Interpretation and review of laboratory results Normal [facility] Iron [Mass/Vol] 46 ug/dL 41 - 186 ug/dL [facility] Iron binding capacity [Mass/Vol] 245 ug/dL 232 - 386 ug/dL [facility] Iron/TIBC [Molar ratio] 18.8 % 15.0 - 57.0 % [facility] No Panel InformationOrdered By: Ok Mederos on 01-03-2025 [facility] No Panel Informationon 01-03 Interpretation and review of laboratory results Normal [facility] VITAMIN B12on 01-03-2025 Cobalamin (Vitamin B12) [Mass/Vol] 582 pg/mL 232 - 1245 pg/mL [facility] ZINC BLDOrdered By: Ok da silva on 01-03-2025 Zinc [Mass/Vol] 56 ug/dL Low 60 - 120 ug/dL [facility] Comment on above: This test was develo ped, and its performance characteristics determined by the [facility] Department of Pathology and Laboratory Medicine. It has not been cleared or approved by the FDA. The [facility] Department of Pathology and Laboratory Medicine is regulated under CLIA as qualified to perform high-complexity testing. This test is used for clinical purposes. It should not be regarded as investigational or for research. Zinc [Mass/Vol]Ordered By: Ricardo Mederos on 01-03-2025 Interpretation and review of laboratory results Abnormal [facility] CBC W Auto Differential pane l (Bld)on 01-02-2025 Basophils (Bld) [#/Vol] 0.03 10*3/uL [facility] Basophils/100 WBC (Bld) 0.3 % [facility] Differential cell count method Nom (Bld) Auto [facility] Eosinophils (Bld) [#/Vol] 0.3 10*3/uL [facility] Eosinophils/100 WBC (Bld) 2.9 % [facility] Erythrocyte distribution width (RBC) [Ratio] 17.2 % High 11.5 - 15.0 % [facility] Hematocrit (Bld) [Volume fraction] 34.1 % Low 36.0 - 46.0 % [facility] Hemoglobin (Bld) [Mass/Vol] 10.5 g/dL Low 11.5 - 15.5 g/dL [facility] Immature granulocytes (Bld) [#/Vol] 0.1 10*3/uL High [facility] Immature granulocytes/100 WBC (Bld) 1 % [facility] Interpretation and review of laboratory results Abnormal [facility] Lymphocytes (Bld) [#/Vol] 0.78 10*3/uL Low [facility] Lymphocytes/100 WBC (Bld) 7.5 % [facility] MCH (RBC) [Entitic mass] 28.5 pg 26.0 - 34.0 pg [facility] MCHC (RBC) [Mass/Vol] 30.8 g/dL 30.5 - 36.0 g/dL [facility] MCV (RBC) [Entitic vol] 92.4 fL 80.0 - 100.0 fL [facility] Monocytes (Bld) [#/Vol] 0.61 10*3/uL [facility] Monocytes/100 WBC (Bld) 5.9 % [facility] Neutrophils (Bld) [#/Vol] 8.56 10*3/uL High [facility] Neutrophils/100 WBC (Bld) 82.4 % [facility] Nucleated RBC (Bld) [#/Vol] [facility] Nucleated RBC/100 WBC (Bld) [Ratio] 0 % /100 WBC [facility] Platelet mean volume (Bld) [Entitic vol] 8.7 fL Low 9.0 - 12.7 fL [facility] Platelets (Bld) [#/Vol] 362 10*3/uL [facility] RBC (Bld) [#/Vol] 3.69 10*6/uL Low 3.90 - 5.2 0 m/uL [facility] WBC (Bld) [#/Vol] 10.38 10*3/uL [facility] Basophils (Bld) [#/Vol] 0.03 10*3/uL Normal <0.11 [facility] Comment on above: Order Comment: Speci men Type: BLOOD SPECIMENOrdering Facility: [facility] Address: [address] [place] [address] Performed By: #### 5 7021-8 ####[facility] LABCLIA [id number] [place] [address] [place] Basophils/100 WBC (Bld) 0.3 % Normal [facility] Comment on above: Order Comment: Speci men Type: BLOOD SPECIMENOrdering Facility: [facility] Address: [address] [place] [address] Performed By: #### 5 7021-8 ####[facility] LABCLIA [id number] [place] [address] [place] Differential cell count method Nom (Bld) Auto Normal [facility] Comment on above: Order Comment: Speci men Type: BLOOD SPECIMENOrdering Facility: [facility] Address: [address] [place] [address] Performed By: #### 5 7021-8 ####[facility] LABCLIA [id number] [place] [address] [place] Eosinophils (Bld) [#/Vol] 0.30 10*3/uL Normal <0.46 [facility] Comment on above: Order Comment: Speci men Type: BLOOD SPECIMENOrdering Facility: [facility] Address: [address] [place] [address] Performed By: #### 5 7021-8 ####[facility] LABCLIA [id number] [place] [address] [place] Eosinophils/100 WBC (Bld) 2.9 % Normal [facility] Comment on above: Order Comment: Speci men Type: BLOOD SPECIMENOrdering Facility: [facility] Address: [address] [place] [address] Performed By: #### 5 7021-8 ####[facility] LABCLIA [id number] [place] [address] [place] Erythrocyte distribution width (RBC) [Ratio] 17.2 % High 11.5-15.0 [facility] Comment on above: Order Comment: Speci men Type: BLOOD SPECIMENOrdering Facility: [facility] Address: [address] [place] [address] Performed By: #### 5 7021-8 ####[facility] LABIA [id number] [place] [address] [place] Hematocrit (Bld) [Volume fraction] 34.1 % Low 36.0-46.0 [facility] Comment on above: Order Comment: Speci men Type: BLOOD SPECIMENOrdering Facility: [facility] Address: [address] [place] [address] Performed By: #### 5 7021-8 ####[facility] LABIA [id number] [place] [address] [place] Hemoglobin (Bld) [Mass/Vol] 10.5 g/dL Low 11.5-15.5 [facility] Comment on above: Order Comment: Speci men Type: BLOOD SPECIMENOrdering Facility: [facility] Address: [address] [place] [address] Performed By: #### 5 7021-8 ####[facility] LABIA [id number] [place] [address] [place] Immature granulocytes (Bld) [#/Vol] 0.10 10*3/uL High <0.10 [facility] Comment on above: Order Comment: Speci men Type: BLOOD SPECIMENOrdering Facility: [facility] Address: [address] [place] [address] Performed By: #### 5 7021-8 ####[facility] LABCLIA [id number] [place] [id number] [place] Immature granulocytes/100 WBC (Bld) 1.0 % Normal [facility] Comment on above: Order Comment: Speci men Type: BLOOD SPECIMENOrdering Facility: [facility] Address: [address] [place] [address] Performed By: #### 5 7021-8 ####[facility] LABCLIA [id number] [place] [id number] [place] Lymphocytes (Bld) [#/Vol] 0.78 10*3/uL Low 1.00-4.00 [facility] Comment on above: Order Comment: Speci men Type: BLOOD SPECIMENOrdering Facility: [facility] Address: [address] [place] [address] Performed By: #### 5 7021-8 ####[facility] LABCLIA [id number] [address] [place] Lymphocytes/100 WBC (Bld) 7.5 % Normal [facility] Comment on above: Order Comment: Speci men Type: BLOOD SPECIMENOrdering Facility: [facility] Address: [address] [place] [address] Performed By: #### 5 7021-8 ####[facility] LABCLIA [id number] [place] [id number] [place] MCH (RBC) [Entitic mass] 28.5 pg Normal 26.0-34.0 [facility] Comment on above: Order Comment: Speci men Type: BLOOD SPECIMENOrdering Facility: [facility] Address: [address] [place] [address] Performed By: #### 5 7021-8 ####[facility] LABCLIA [id number] [place] [id number] [place] MCHC (RBC) [Mass/Vol] 30.8 g/dL Normal 30.5-36.0 [facility] Comment on above: Order Comment: Speci men Type: BLOOD SPECIMENOrdering Facility: [facility] Address: [address] [place] [address] Performed By: #### 5 7021-8 ####[facility] LABCLIA [id number] [place] [address] [place] MCV (RBC) [Entitic vol] 92.4 fL Normal 80.0-100.0 [facility] Comment on above: Order Comment: Speci men Type: BLOOD SPECIMENOrdering Facility: [facility] Address: [address] [place] [address] Performed By: #### 5 7021-8 ####[facility] LABCLIA [id number] [place] [address] [place] Monocytes (Bld) [#/Vol] 0.61 10*3/uL Normal <0.87 [facility] Comment on above: Order Comment: Speci men Type: BLOOD SPECIMENOrdering Facility: [facility] Address: [address] [place] [address] Performed By: #### 5 7021-8 ####[facility] LABCLIA [id number] [place] [address] [place] Monocytes/100 WBC (Bld) 5.9 % Normal [facility] Comment on above: Order Comment: Speci men Type: BLOOD SPECIMENOrdering Facility: [facility] Address: [address] [place] [address] Performed By: #### 5 7021-8 ####[facility] LABCLIA [id number] [place] [address] [place] Neutrophils (Bld) [#/Vol] 8.56 10*3/uL High 1.45-7.50 [facility] Comment on above: Order Comment: Speci men Type: BLOOD SPECIMENOrdering Facility: [facility] Address: [address] [place] [address] Performed By: #### 5 7021-8 ####[facility] LABCLIA [id number] [place] [address] [place] Neutrophils/100 WBC (Bld) 82.4 % Normal [facility] Comment on above: Order Comment: Speci men Type: BLOOD SPECIMENOrdering Facility: [facility] Address: [address] [place] [address] Performed By: #### 5 7021-8 ####[facility] LABIA [id number] [address] Nucleated RBC (Bld) [#/Vol] 10*3/uL Normal <0.01 [facility] Comment on above: Order Comment: Speci men Type: BLOOD SPECIMENOrdering Facility: [facility] Address: [address] [place] [address] Performed By: #### 5 7021-8 ####[facility] LABIA [id number] [address] [place] Nucleated RBC/100 WBC (Bld) [Ratio] 0.0 /100 WBC Normal [facility] Comment on above: Order Comment: Speci men Type: BLOOD SPECIMENOrdering Facility: [facility] Address: [address] [place] [address] Performed By: #### 5 7021-8 ####[facility] LABIA [id number] [place] [address] [place] [place] Platelet mean volume (Bld) [Entitic vol] 8.7 fL Low 9.0-12.7 [facility] Comment on above: Order Comment: Speci men Type: BLOOD SPECIMENOrdering Facility: [facility] Address: [address] [place] [address] Performed By: #### 5 7021-8 ####[facility] LABIA [id number] [place] [address] [place] Platelets (Bld) [#/Vol] 362 10*3/uL Normal 150-400 [facility] Comment on above: Order Comment: Speci men Type: BLOOD SPECIMENOrdering Facility: [facility] Address: [address] [place] [address] Performed By: #### 5 7021-8 ####[facility] LABCLIA [id number] [place] [address] [place] RBC (Bld) [#/Vol] 3.69 10*6/uL Low 3.90-5.20 [facility] Comment on above: Order Comment: Speci men Type: BLOOD SPECIMENOrdering Facility: [facility] Address: [address] [place] [address] Performed By: #### 5 7021-8 ####[facility] LABCLIA [id number] [place] [id number] [facility] WBC (Bld) [#/Vol] 10.38 10*3/uL Normal 3.70-11.[address] [facility] Comment on above: Order Comment: Speci men Type: BLOOD SPECIMENOrdering Facility: [facility] Address: [address] [place] [address] Performed By: #### 5 7021-8 ####[facility] LABCLIA [id number] [place] [id number] [facility] CNOVSPon 01-02-2025 CNOVSP Visit (SP) Office (HEMAST) YUSUF MEDINA ([id number]) 1935 [facility] Date Time Provider Department 01/02/25 8:30 AM [facility] HEMAST During your visit today, [...] L REMV CATARACT EXTRACAP,INSERT LENS Bilateral 2020 [facility] FAMILY HISTORY Problem Relation Age of Onset [...] daily. amLODI (more content not included)... Normal [facility] CNPNon 01-02-2025 CNPN Telephone (HEMAST) YUSUF MEDINA ([id number]) 1935 F [place] Date Time Provider Department 01/02/25 ADITI LOPEZ During your visit today, we recorded the following information about you: Aditi Lopez LISW 01/02/2025 4:03 PM Signed SOCIAL WORK Date of Service: Thursday January 02, 2025 [facility] Financial Recording Clerk (SW) Aditi Lopez attempted to contact Yusuf Medina by phone using paraprofessional interpreter services to complete the distress assessment. Yusuf has been diagnosed with Normocytic anemia. She flagged for moderate depression on 12-31-24. 08/14/2018 11/21/2024 2024 PHQ-9 Score 9 13 12 LYRIC spoke with Yusuf's family member Mercedes. She advised that Yusuf is in a [facility] facility. Mercedes advised that she completed the questionnaire without the patient. She also noted that Yusuf will most likely not understand the [place] paraprofessional interpreter because she speaks a different dialect. At [...] this patient by: CAREGIVER José Miguel Swanson [facility] Problem List As Of Date [...] Osteoarth NOS-p (more content not included)... Normal [facility] CONFIRM BLOOD TYPEon 025 ABO group Nom (Bld) O [facility] Rh Nom (Bld) Positive [facility] ABO O Normal [facility] Comment on above: Order Comment: Speci men Type: BLOOD SPECIMENOrdering Facility: [facility] Address: [address] [place] [address] Performed By: #### C ONABO ####[facility] BLOOD BANKCLIA [id number] [address] [place] Rh Nom (Bld) Positive Normal [facility] Comment on above: Order Comment: Speci men Type: BLOOD SPECIMENOrdering Facility: [facility] Address: [address] [place] [address] Performed By: #### C ONABO ####[facility] BLOOD BANKCLIA [id number] [address] [place] BLOODon 01-02-2025 Copper [Mass/Vol] 128 ug/dL Normal 80-155 [facility] Comment on above: Order Comment: Speci men Type: BLOOD SPECIMENOrdering Facility: [facility] Address: [address] [place] [address] Result Comment: This test was developed, and its performance characteristics determined by the [facility] Department of Pathology and Laboratory Medicine. It has not been cleared or approved by the FDA. The [facility] Department of Pathology and Laboratory Medicine is regulated under CLIA as qualified to perform high-complexity testing. This test is used for clinical purposes. It should not be regarded as investigational or for research. Performed By: #### 5 763-8, COPPER ####[facility] LABCLIA [id number] [address] [place] Comprehensive metabolic 2000 panelOrdered By: Aminta Lim on 01-02-2025 Albumin [Mass/Vol] 3.5 g/dL Low 3.9 - 4.9 g/dL [facility] ALP [Catalytic activity/Vol] 128 U/L High 34 - 123 U/L [facility] ALT [Catalytic activity/Vol] U/L Low 7 - 38 U/L [facility] Anion gap [Moles/Vol] 13 mmol/L 8 - 15 mmol/L [facility] AST [Catalytic activity/Vol] 15 U/L 13 - 35 U/L [facility] Bilirubin [Mass/Vol] 0.2 mg/dL 0.2 - 1 .3 mg/dL [facility] Calcium [Mass/Vol] 9.1 mg/dL 8.5 - 10. 2 mg/dL [facility] Chloride [Moles/Vol] 98 mmol/L 98 - 10 7 mmol/L [facility] CO2 [Moles/Vol] 26 mmol/L 22 - 30 mmol/L [facility] Creatinine [Mass/Vol] 0.82 mg/dL 0.58 - 0.96 mg/dL [facility] GFR/1.73 sq M.predicted among non-blacks MDRD (S/P/Bld) [Vol rate/Area] 68 mL/min/{1.73_m2} - PINF [facility] Comment on above: Estimated Glomerular Filtration [...] 276 mg/dL High 74 - 99 mg/dL [facility] Comment on above: The [place] Diabete s Association (ADA) provides guidance for [...] Standards of Medical Care in Diabetes 2016, [place] Diabetes Association. Diabetes Care. 2016.39(Suppl 1). Interpretation and review of laboratory results Abnormal [facility] Potassium [Moles/Vol] 5.1 mmol/L 3.7 - 5.1 mmol/L [facility] Protein [Mass/Vol] 5.9 g/dL Low 6.3 - 8.0 g/dL [facility] Sodium [Moles/Vol] 137 mmol/L 136 - 144 mmol/L [facility] Urea nitrogen [Mass/Vol] 29 mg/dL High 7 - 21 mg/dL [facility] Comprehensive metabolic 2000 panelon 01-02-2025 Albumin [Mass/Vol] 3.5 g/dL Low 3.9-4.9 [facility] Comment on above: Order Comment: Speci men Type: BLOOD SPECIMENOrdering Facility: [facility] Address: [address] [place] [address] Performed By: #### 2 4323-8 ####[facility] LABCLIA [id number] [place] [address] [place] ALP [Catalytic activity/Vol] 128 U/L High 34-123 [facility] Comment on above: Order Comment: Speci men Type: BLOOD SPECIMENOrdering Facility: [facility] Address: [address] [place] [address] Performed By: #### 2 4323-8 ####[facility] LABCLIA [id number] [place] [address] [place] ALT [Catalytic activity/Vol] U/L Low 7-38 [facility] Comment on above: Order Comment: Speci men Type: BLOOD SPECIMENOrdering Facility: [facility] Address: [address] [place] [address] Performed By: #### 2 4323-8 ####[facility] LABCLIA [id number] [place] [address] [place] Anion gap [Moles/Vol] 13 mmol/L Normal 8-15 [facility] Comment on above: Order Comment: Speci men Type: BLOOD SPECIMENOrdering Facility: [facility] Address: [address] [place] [address] Performed By: #### 2 4323-8 ####[facility] LABCLIA [id number] [place] [address] [place] AST [Catalytic activity/Vol] 15 U/L Normal 13-35 [facility] Comment on above: Order Comment: Speci men Type: BLOOD SPECIMENOrdering Facility: [facility] Address: [address] [place] [address] Performed By: #### 2 4323-8 ####[facility] LABCLIA [id number] [place] [id number] [place] Bilirubin [Mass/Vol] 0.2 mg/dL Normal 0.2-1.[address] [facility] Comment on above: Order Comment: Speci men Type: BLOOD SPECIMENOrdering Facility: [facility] Address: [address] [place] [address] Performed By: #### 2 4323-8 ####[facility] LABCLIA [id number] [place] [address] [place] Calcium [Mass/Vol] 9.1 mg/dL Normal 8.5-10.2 [facility] Comment on above: Order Comment: Speci men Type: BLOOD SPECIMENOrdering Facility: [facility] Address: [address] [place] [address] Performed By: #### 2 4323-8 ####[facility] LABCLIA [id number] [place] [address] [place] Chloride [Moles/Vol] 98 mmol/L Normal 98-[address] [facility] Comment on above: Order Comment: Speci men Type: BLOOD SPECIMENOrdering Facility: [facility] Address: [address] [place] [address] Performed By: #### 2 4323-8 ####[facility] LABCLIA [id number] [place] [address] [place] CO2 [Moles/Vol] 26 mmol/L Normal 22-30 [facility] Comment on above: Order Comment: Speci men Type: BLOOD SPECIMENOrdering Facility: [facility] Address: [address] [place] [address] Performed By: #### 2 4323-8 ####[facility] LABCLIA [id number] [place] [address] [place] Creatinine [Mass/Vol] 0.82 mg/dL Normal 0.58-0.96 [facility] Comment on above: Order Comment: Speci men Type: BLOOD SPECIMENOrdering Facility: [facility] Address: [address] [place] [address] Performed By: #### 2 4323-8 ####[facility] LABCLIA [id number] [place] [id number] [place] Creatinine and Glomerular filtration rate.predicted panel (S/P/Bld) 68 mL/min/1.73m??? Normal >=60 [facility] Comment on above: Order Comment: Kateleroy meade Type: BLOOD SPECIMENOrdering Facility: [facility] Address: [address] [place] [address] Result Comment: Hilda mated Glomerular Filtration Rate [...] GFR. Performed By: #### 2 4323-8 ####[facility] LABCLIA [id number] [place] [address] [place] Glucose [Mass/Vol] 276 mg/dL High 74-99 [facility] Comment on above: Order Comment: Fan meade Type: BLOOD SPECIMENOrdering Facility: [facility] Address: [address] [place] [address] Result Comment: The [place] Diabetes Association (ADA) provides guidance for cutoff [...] Standards of Medical Care in Diabetes 2016, [place] Diabetes Association. Diabetes Care. 2016.39(Suppl 1). Performed By: #### 2 4323-8 ####[facility] LABCLIA [id number] [place] [address] [place] Potassium [Moles/Vol] 5.1 mmol/L Normal 3.7-5.1 [facility] Comment on above: Order Comment: Speci men Type: BLOOD SPECIMENOrdering Facility: [facility] Address: [address] [place] [address] Performed By: #### 2 4323-8 ####[facility] LABCLIA [id number] [place] [address] [place] Protein [Mass/Vol] 5.9 g/dL Low 6.3-8.0 [facility] Comment on above: Order Comment: Speci men Type: BLOOD SPECIMENOrdering Facility: [facility] Address: [address] [place] [address] Performed By: #### 2 4323-8 ####[facility] LABIA [id number] [place] [address] [place] Sodium [Moles/Vol] 137 mmol/L Normal 136-144 [facility] Comment on above: Order Comment: Speci men Type: BLOOD SPECIMENOrdering Facility: [facility] Address: [address] [place] [address] Performed By: #### 2 4323-8 ####[facility] LABCLIA [id number] [place] [address] [place] Urea nitrogen [Mass/Vol] 29 mg/dL High 7-21 [facility] Comment on above: Order Comment: Speci men Type: BLOOD SPECIMENOrdering Facility: [facility] Address: [address] [place] [address] Performed By: #### 2 4323-8 ####[facility] LABCLIA [id number] [place] [id number] [place] ESR Westergren method (Bld) [Velocity]on 01-02-2025 ESR (Bld) [Velocity] 47 mm/h High [facility] Interpretation and review of laboratory results Abnormal [facility] ESR (Bld) [Velocity] 47 mm/h High 0-[address] [facility] Comment on above: Order Comment: Speci men Type: BLOOD SPECIMEN Ordering Facility: [facility] Address: [address] [place] [address] Performed By: #### 5 7021-8 #### [facility] CLIA [id number] [facility] [place] [address] [place] Ferritin SerPl-mCncon 2024 Ferritin [Mass/Vol] 865.0 ng/mL High 14.7-205.[address] [facility] Comment on above: Order Comment: Speci men Type: BLOOD SPECIMENOrdering Facility: [facility] Address: [address] [place] [address] Performed By: #### 2 132-9, 2276-4, 97353-2, 2284-8 ####[facility] LABCLIA [id number] [place] [address] [place] Folate SerPl-mCncon 01-02-20 25 Folate [Mass/Vol] 14.8 ng/mL Normal >4.7 [facility] Comment on above: Order Comment: Speci men Type: BLOOD SPECIMENOrdering Facility: [facility] Address: [address] [place] [address] Performed By: #### 2 132-9, 2276-4, 61730-0, 4-8 ####[facility] LABIA [id number] [place] [address] [place] Iron and Iron binding capaci ty panelon 01-02-2025 Iron [Mass/Vol] 46 ug/dL Normal 41-186 [facility] Comment on above: Order Comment: Speci men Type: BLOOD SPECIMENOrdering Facility: [facility] Address: [address] [place] [address] Performed By: #### 2 132-9, 2276-4, 86274-5, 2283-8 ####[facility] LABCLIA [id number] [address] [address] [place] Iron binding capacity [Mass/Vol] 245 ug/dL Normal 232-386 [facility] Comment on above: Order Comment: Speci men Type: BLOOD SPECIMENOrdering Facility: [facility] Address: [address] [place] [address] Performed By: #### 2 132-9, 2276-4, 95555-3, 2284-8 ####[facility] LABCLIA [id number] [address] [address] [place] Iron/TIBC [Molar ratio] 18.8 % Normal 15.0-57.0 [facility] Comment on above: Order Comment: Speci men Type: BLOOD SPECIMENOrdering Facility: [facility] Address: [address] [place] [address] Performed By: #### 2 132-9, 2276-4, 95446-6, 2284-8 ####[facility] LABCLIA [id number] [place] [id number] [place] TYPE + SCREENon 01-02-2025 ABO group Nom (Bld) O [facility] Blood group antibody screen Ql Negative [facility] Rh Nom (Bld) Positive [facility] Type and Screen Expiration 01/05/2025 23:59 [facility] ABO O Normal [facility] Comment on above: Order Comment: Speci men Type: BLOOD SPECIMENOrdering Facility: [facility] Address: [address] [place] [address] Performed By: #### T SCR ####[facility] BLOOD BANKCLIA [id number] [place] [address] [place] Rh Nom (Bld) Positive Normal [facility] Comment on above: Order Comment: Speci men Type: BLOOD SPECIMENOrdering Facility: [facility] Address: [address] [place] [address] Performed By: #### T SCR ####[facility] BLOOD BANKCLIA [id number] [place] [address] [place] TYPE AND SCREEN EXPIRATION 01/05/2025 23:59 Normal [facility] Comment on above: Order Comment: Speci men Type: BLOOD SPECIMENOrdering Facility: [facility] Address: [address] [place] [address] Performed By: #### T SCR ####[facility] BLOOD BANKCLIA [id number] [place] [address] [place] VITAMIN B6/PYRIDOXINon 01-02 VITAMIN B6 13.8 nmol/L Low 20.0-125.0 [facility] Comment on above: Order Comment: Speci men Type: BLOOD SPECIMEN Ordering Facility: [facility] Address: [address] [place] [address] Result Comment: INTE RPRETIVE INFORMATION: Vitamin B6 (Pyridoxal 5-Phosphate) Pyridoxal 5'-phosphate measured in a specimen collected following an 8-hour or overnight fast accurately indicates vitamin B6 nutritional status. Non-fasting specimen concentration reflects recent vitamin intake. This test was developed and its performance characteristics determined by [facility]. It has not been cleared or approved by the [place] Food and Drug Administration. This test was performed in a CLIA certified laboratory and is intended for clinical purposes. Performed By: [facility] [address] [place] [address] Senior Policy Analyst: Marcellus Raza MD, PhD CLIA Number: [id number] Performed By: #### 1 3964-2 #### [facility] CLIA [id number] [address] [place] [address] [place] Vit B12 SerPl-mCncon 025 Cobalamin (Vitamin B12) [Mass/Vol] 582 pg/mL Normal 232-1245 [facility] Comment on above: Order Comment: Speci men Type: BLOOD SPECIMENOrdering Facility: [facility] Address: [address] [place] [address] Performed By: #### 2 132-9, 2276-4, 44759-4, 2284-8 ####[facility] LABCLIA [id number] [place] [address] [place] Zinc SerPl-mCncon 01-02-2025 Zinc [Mass/Vol] 56 ug/dL Low 60-120 [facility] Comment on above: Order Comment: Speci men Type: BLOOD SPECIMENOrdering Facility: [facility] Address: [address] [place] [address] Result Comment: This test was developed, and its performance characteristics determined by the [facility] Department of Pathology and Laboratory Medicine. It has not been cleared or approved by the FDA. The [facility] Department of Pathology and Laboratory Medicine is regulated under CLIA as qualified to perform high-complexity testing. This test is used for clinical purposes. It should not be regarded as investigational or for research. Performed By: #### 5 763-8, COPPER ####[facility] LABCLIA [id number] [place] [address] [place] Absolute lymphocyte countOrd ered By: Mario Mak on 2024 Lymphocytes Auto (Unsp spec) [#/Vol] 0.88 10*3/uL 0.83-4.51 [facility] Absolute neutrophil countOrd ered By: Mario Mak on 2024 Neutrophils (Bld) [#/Vol] 5.4 10*3/uL 2.0-7.7 [facility] Albumin to globulin ratioOrd ered By: Mario Mak on 2024 Albumin/Globulin [Mass ratio] 0.7 {ratio} Low 0.9-2.4 [facility] Automated lymphocyte count a s percentage of total leukocytesOrdered By: Mario Mak on 2024 Lymphocytes/100 WBC Auto (Unsp spec) 11.9 % Low 19-41 [facility] Basophil percentageOrdered B y: Mario Mak on 2024 Basophils/100 WBC (Bld) 0.3 % 0-1 [facility] Bilirubin, totalOrdered By: Mario Mak on 2024 Bilirubin [Mass/Vol] 0.30 mg/dL 0.20-1.00 [facility] Comment on above: For patients on eltr ombopag therapy, use of Dimension [place] TBIL is not recommended. Blood urea nitrogen (BUN)/cr eatinine ratioOrdered By: Mario Mak on 2024 Urea nitrogen/Creatinine [Mass ratio] 30.9 mg/mg High 10-20 [facility] CBC W/Diff, Automatedon 12-15 Absolute Lymph 0.88 X10 3/uL Normal 0.83-4.51 [facility] Comment on above: Order Comment: 107.1 Performed By: #### L 500.4050, L101.9900, L100.0500 #### [facility] [address] [place], [address] Absolute Neut 5.4 X10 3/uL Normal 2.0-7.7 [facility] Comment on above: Order Comment: 107.1 Performed By: #### L 500.4050, L101.9900, L100.0500 #### [facility] [address] [place], [address] Basophils/100 WBC (Bld) 0.3 % Normal 0-1 [facility] Comment on above: Order Comment: 107.1 Performed By: #### L 500.4050, L101.9900, L100.0500 #### [facility] [address] [place], [address] Eosinophils/100 WBC (Bld) 6.3 % High 0-5 [facility] Comment on above: Order Comment: 107.1 Performed By: #### L 500.4050, L101.9900, L100.0500 #### [facility] [address] [place], [address] Erythrocyte distribution width (RBC) [Ratio] 17.1 % High 11.6-14.6 [facility] Comment on above: Order Comment: 107.1 Performed By: #### L 500.4050, L101.9900, L100.0500 #### [facility] [address] [place], [address] Hematocrit (Bld) [Volume fraction] 29.8 % Low 37-47 [facility] Comment on above: Order Comment: 107.1 Performed By: #### L 500.4050, L101.9900, L100.0500 #### [facility] [address] [place], [address] Hemoglobin (Bld) [Mass/Vol] 9.4 g/dL Low 12.0-15.0 [facility] Comment on above: Order Comment: 107.1 Performed By: #### L 500.4050, L101.9900, L100.0500 #### [facility] [address] [place], [address] IG% 1.100 High 0.0-0.9 [facility] Comment on above: Order Comment: 107.1 Result Comment: IG% - Immature Granulocytes (promyelocytes, myelocytes and metamyelocytes) > 1% indicates that a LEFT SHIFT is Present. Performed By: #### L 500.4050, L101.9900, L100.0500 #### [facility] [address] [place], [address] Lymphocytes/100 WBC (Bld) 11.9 % Low 19-41 [facility] Comment on above: Order Comment: 107.1 Performed By: #### L 500.4050, L101.9900, L100.0500 #### [facility] [address] [place], [address] MCH (RBC) [Entitic mass] 28.4 pg Normal 27.0-32.0 [facility] Comment on above: Order Comment: 107.1 Performed By: #### L 500.4050, L101.9900, L100.0500 #### [facility] [address] [place], [address] MCHC (RBC) [Mass/Vol] 31.5 g/dL Low 32-36 [facility] Comment on above: Order Comment: 107.1 Performed By: #### L 500.4050, L101.9900, L100.0500 #### [facility] [address] [place], [address] MCV (RBC) [Entitic vol] 90.0 fL Normal 81-99 [facility] Comment on above: Order Comment: 107.1 Performed By: #### L 500.4050, L101.9900, L100.0500 #### [facility] [address] [place], [address] Monocytes/100 WBC (Bld) 7.5 % Normal 0-10 [facility] Comment on above: Order Comment: 107.1 Performed By: #### L 500.4050, L101.9900, L100.0500 #### [facility] [address] [place], [address] Neutrophils/100 WBC (Bld) 72.9 % High 47-70 [facility] Comment on above: Order Comment: 107.1 Performed By: #### L 500.4050, L101.9900, L100.0500 #### [facility] [address] [place], [address] Nucleated RBC (Bld) [#/Vol] 0 10*3/uL Normal 0-5 [facility] Comment on above: Order Comment: 107.1 Performed By: #### L 500.4050, L101.9900, L100.0500 #### [facility] [address] [place], [address] Platelet mean volume (Bld) [Entitic vol] 9.2 fL Normal 6.2-12.0 [facility] Comment on above: Order Comment: 107.1 Performed By: #### L 500.4050, L101.9900, L100.0500 #### [facility] [address] [place], [address] Platelets (Bld) [#/Vol] 361 10*3/uL Normal 150-450 [facility] Comment on above: Order Comment: 107.1 Performed By: #### L 500.4050, L101.9900, L100.0500 #### [facility] [address] [place], [address] RBC (Bld) [#/Vol] 3.31 10*6/uL Low 4.2-5.4 [facility] Comment on above: Order Comment: 107.1 Performed By: #### L 500.4050, L101.9900, L100.0500 #### [facility] [address] [place], [address] RDW SD 56.3 fl High 35.1-43.9 [facility] Comment on above: Order Comment: 107.1 Performed By: #### L 500.4050, L101.9900, L100.0500 #### [facility] [address] [place], [address] WBC (Bld) [#/Vol] 7.4 10*3/uL Normal 4.4-11.0 [facility] Comment on above: Order Comment: 107.1 Performed By: #### L 500.4050, L101.9900, L100.0500 #### [facility] [address] [place], [address] Carbon dioxide measurementOr dered By: Mario Mak on 2024 CO2 [Moles/Vol] 28.0 mmol/L 21.0-32.0 [facility] Chloride measurementOrdered By: Mario Mak on 2024 Chloride [Moles/Vol] 102 mmol/L 98-107 [facility] Comprehensive Metabolic Prof ilon 2024 Albumin [Mass/Vol] 2.1 g/dL Low 3.2-5.0 [facility] Comment on above: Order Comment: 107.1 Performed By: #### L 500.4050, L101.9900, L100.0500 #### [facility] [address] [place], [address] Albumin/Globulin [Mass ratio] 0.7 {ratio} Low 0.9-2.4 [facility] Comment on above: Order Comment: 107.1 Performed By: #### L 500.4050, L101.9900, L100.0500 #### [facility] [address] [place], [address] ALK P 102 U/L Normal 45-117 [facility] Comment on above: Order Comment: 107.1 Performed By: #### L 500.4050, L101.9900, L100.0500 #### [facility] [address] [place], [address] ALT [Catalytic activity/Vol] U/L Low 13-56 [facility] Comment on above: Order Comment: 107.1 Performed By: #### L 500.4050, L101.9900, L100.0500 #### [facility] [address] [place], [address] AST [Catalytic activity/Vol] 15 U/L Normal 15-37 [facility] Comment on above: Order Comment: 107.1 Performed By: #### L 500.4050, L101.9900, L100.0500 #### [facility] [address] [place], [address] Bilirubin [Mass/Vol] 0.30 mg/dL Normal 0.20-1.00 [facility] Comment on above: Order Comment: 107.1 Result Comment: For patients on eltrombopag therapy, use of Dimension [place] TBIL is not recommended. Performed By: #### L 500.4050, L101.9900, L100.0500 #### [facility] [address] [place], [address] BUN/CRE 30.9 RATIO High 10-20 [facility] Comment on above: Order Comment: 107.1 Performed By: #### L 500.4050, L101.9900, L100.0500 #### [facility] [address] [place], [address] CA,Total 8.7 mg/dL Normal 8.5-10.1 [facility] Comment on above: Order Comment: 107.1 Performed By: #### L 500.4050, L101.9900, L100.0500 #### [facility] [address] [place], [address] Chloride [Moles/Vol] 102 mmol/L Normal 98-107 [facility] Comment on above: Order Comment: 107.1 Performed By: #### L 500.4050, L101.9900, L100.0500 #### [facility] [address] [place], [address] CO2 [Moles/Vol] 28.0 mmol/L Normal 21.0-32.0 [facility] Comment on above: Order Comment: 107.1 Performed By: #### L 500.4050, L101.9900, L100.0500 #### [facility] [address] [place], [address] Creatinine [Mass/Vol] 0.87 mg/dL Normal 0.55-1.02 [facility] Comment on above: Order Comment: 107.1 Result Comment: The validity of the calculated GFR GFRAA in patients over 70 years has not been determined. Clinical correlation is essential. Performed By: #### L 500.4050, L101.9900, L100.0500 #### [facility] [address] [place], [address] EST GFR - AA 79 mL/min Normal >60 [facility] Comment on above: Order Comment: 107.1 Result Comment: Afri can [place] GFR Calc Performed By: #### L 500.4050, L101.9900, L100.0500 #### [facility] [address] [place], [address] GAP 7 Normal 5-15 [facility] Comment on above: Order Comment: 107.1 Performed By: #### L 500.4050, L101.9900, L100.0500 #### [facility] [address] [place], [address] GFR/1.73 sq M.predicted among non-blacks MDRD (S/P/Bld) [Vol rate/Area] 65 mL/min/{1.73_m2} Normal >60 [facility] Comment on above: Order Comment: 107.1 Result Comment: Non- GFR Calc Performed By: #### L 500.4050, L101.9900, L100.0500 #### [facility] [address] [place], [address] Globulin (S) [Mass/Vol] 3.1 g/dL Normal 2.2-4.2 [facility] Comment on above: Order Comment: 107.1 Performed By: #### L 500.4050, L101.9900, L100.0500 #### [facility] [address] [place], [address] Glucose [Mass/Vol] 192 mg/dL High 74-106 [facility] Comment on above: Order Comment: 107.1 Result Comment: Fast ing Glucose result greater than or equal to 126 mg/dL suggests DIABETES MELLITUS per A.D.A. criteria. Performed By: #### L 500.4050, L101.9900, L100.0500 #### [facility] [address] [place], [address] Potassium [Moles/Vol] 3.9 mmol/L Normal 3.5-5.1 [facility] Comment on above: Order Comment: 107.1 Performed By: #### L 500.4050, L101.9900, L100.0500 #### [facility] [address] [place], [address] Sodium [Moles/Vol] 137 mmol/L Normal 136-145 [facility] Comment on above: Order Comment: 107.1 Performed By: #### L 500.4050, L101.9900, L100.0500 #### [facility] [address] [place], [address] T PROT 5.2 g/dL Low 6.4-8.2 [facility] Comment on above: Order Comment: 107.1 Performed By: #### L 500.4050, L101.9900, L100.0500 #### [facility] [address] [place], [address] Urea nitrogen [Mass/Vol] 27 mg/dL High 7-18 [facility] Comment on above: Order Comment: 107.1 Performed By: #### L 500.4050, L101.9900, L100.0500 #### [facility] [address] [place], [address] Eosinophil percentageOrdered By: Mario Mak on 2024 Eosinophils/100 WBC (Bld) 6.3 % High 0-5 [facility] Erythrocyte Sed Rateon 12-31 SED RATE 27 mm/hr Normal 0-30 [facility] Comment on above: Order Comment: 107.1 Performed By: #### L 500.4050, L101.9900, L100.0500 #### [facility] [address] [place], [address] Erythrocyte distribution wid th (RBC) [Ratio]Ordered By: Mario Mak on 2024 Erythrocyte distribution width (RBC) [Entitic vol] 56.3 fL High 35.1-43.9 [facility] Erythrocyte distribution wid th ratioOrdered By: Mario Mak on 2024 Erythrocyte distribution width (RBC) [Ratio] 17.1 % High 11.6-14.6 [facility] Erythrocyte distribution wid th standard deviationOrdered By: Mario Mak on 2024 Erythrocyte distribution width (RBC) [Ratio] 56.3 fl High 35.1-43.9 [facility] Erythrocyte sedimentation ra teOrdered By: Mario Mak on 2024 ESR (Bld) [Velocity] 27 mm/h 0-30 [facility] Estimated glomerular filtrat ion rate (GFR) AmericanOrdered By: Mario Mak on 2024 Estimated GFR (MDRD) Amer 79 mL/min >60 [facility] Comment on above: GFR Calc Glomerular filtration rate ( GFR) estimationOrdered By: Mario Mak on 2024 Estimated GFR (MDRD) Non-Af Amer 65 mL/min >60 [facility] Comment on above: Non- GFR Calc GFR/1.73 sq M.predicted among non-blacks MDRD (S/P/Bld) [Vol rate/Area] 65 mL/min/{1.73_m2} >60 [facility] Comment on above: Non- GFR Calc Glucose measurementOrdered B y: Mario Mak on 2024 Glucose [Mass/Vol] 192 mg/dL High 74-106 [facility] Comment on above: Fasting Glucose resu lt greater than or equal to 126 mg/dL suggests DIABETES MELLITUS per A.D.A. criteria. Hematocrit Auto (Bld) [Volum e fraction]Ordered By: Mario Mak on 2024 Hematocrit (Bld) [Volume fraction] 29.8 % Low 37-47 [facility] Hemoglobin measurementOrdere d By: Mario Mak on 2024 Hemoglobin (Bld) [Mass/Vol] 9.4 g/dL Low 12.0-15.0 [facility] Immature granulocytes/100 WB C Auto (Bld)Ordered By: Mario Mak on 2024 Immature granulocytes/100 WBC (Bld) 1.100 % High 0.0-0.9 [facility] Comment on above: IG% - Immature Granu locytes (promyelocytes, myelocytes and metamyelocytes) > 1% indicates that a LEFT SHIFT is Present. Laboratory - Chemistry and C hemistry - challengeOrdered By: Mario Mak on 2024 AST [Catalytic activity/Vol] 15 U/L 15-37 [facility] Lymphocytes Auto (Unsp spec) [#/Vol]Ordered By: Mario Mak on 2024 Lymphocytes (Bld) [#/Vol] 0.88 10*3/uL 0.83-4.51 [facility] Lymphocytes/100 WBC Auto (Un sp spec)Ordered By: Mario Mak on 2024 Lymphocytes/100 WBC (Bld) 11.9 % Low 19-41 [facility] MCV (mean corpuscular volume ) determinationOrdered By: Mario Mak on 2024 MCV (RBC) [Entitic vol] 90.0 fL 81-99 [facility] Mean corpuscular hemoglobin (MCH) determinationOrdered By: Mario Mak on 2024 MCH (RBC) [Entitic mass] 28.4 pg 27.0-32.0 [facility] Mean corpuscular hemoglobin concentration (MCHC) determinationOrdered By: Mario Mak on 2024 MCHC (RBC) [Mass/Vol] 31.5 g/dL Low 32-36 [facility] Mean platelet volume determi nationOrdered By: Mario Mak on 2024 Platelet mean volume (Bld) [Entitic vol] 9.2 fL 6.2-12.0 [facility] Monocyte percentageOrdered B y: Mario Mak on 2024 Monocytes/100 WBC (Bld) 7.5 % 0-10 [facility] Neutrophil percentageOrdered By: Mario Mak on 2024 Neutrophils/100 WBC (Bld) 72.9 % High 47-70 [facility] Nucleated red blood cell per centageOrdered By: Mario Mak on 2024 Nucleated RBC/100 WBC (Bld) [Ratio] 0 % 0-5 [facility] Platelet countOrdered By: Moreno on 2024 Platelets (Bld) [#/Vol] 361 10*3/uL 150-450 [facility] Potassium measurementOrdered By: Mario Mak on 2024 Potassium [Moles/Vol] 3.9 mmol/L 3.5-5.1 [facility] RBC Auto (Bld) [#/Vol]Ordere d By: Mario Mak on 2024 RBC (Bld) [#/Vol] 3.31 10*6/uL Low 4.2-5.4 [facility] Serum anion gap measurementO rdered By: Mario Mak on 2024 Anion gap [Moles/Vol] 7 mmol/L 5-15 [facility] Serum globulin measurementOr dered By: Mario Mak on 2024 Globulin (S) [Mass/Vol] 3.1 g/dL 2.2-4.2 [facility] Serum or plasma alanine melara otransferase (ALT) measurementOrdered By: Mario Mak on 2024 ALT [Catalytic activity/Vol] U/L Low 13-56 [facility] Serum or plasma albumin roma urement (mass/volume)Ordered By: Mario Mak on 2024 Albumin [Mass/Vol] 2.1 g/dL Low 3.2-5.0 [facility] Serum or plasma alkaline krystal sphatase measurementOrdered By: Mario Mak on 2024 ALP [Catalytic activity/Vol] 102 U/L 45-117 [facility] Serum or plasma calcium roma urement (mass/volume)Ordered By: Mario Mak on 2024 Calcium [Mass/Vol] 8.7 mg/dL 8.5-10.1 [facility] Serum or plasma creatinine m easurement (mass/volume)Ordered By: Mario Mak on 2024 Creatinine [Mass/Vol] 0.87 mg/dL 0.55-1.02 [facility] Comment on above: The validity of the calculated GFR & GFRAA in patients over 70 years has not been determined. Clinical correlation is essential. Serum or plasma urea nitroge n measurement (mass/volume)Ordered By: Mario Mak on 2024 Urea nitrogen [Mass/Vol] 27 mg/dL High 7-18 [facility] Sodium levelOrdered By: Mario Mak on 2024 Sodium [Moles/Vol] 137 mmol/L 136-145 [facility] Total proteinOrdered By: Shwetha Mak on 2024 Protein [Mass/Vol] 5.2 g/dL Low 6.4-8.2 [facility] White blood cell (WBC) count Ordered By: Mario Mak on 2024 WBC (Bld) [#/Vol] 7.4 10*3/uL 4.4-11.0 [facility] CNOVon 12-26-2024 CNOV [facility] CNPNon 12-26-2024 CNPN Telephone (INTMIN) CAROLYUSUF ([id number]) 1935 F [facility] Date Time Provider Department 12/26/24 MIGDALIA CRAMER INTMIN During your visit today, we recorded the following information about you: Nikia Trinidad 12/26/2024 9:24 AM Signed Patients caregiver demetria tapia calling to have her [employer] message she sent below addressed. Yusuf Robles's sons and are in town to make an assessment whether she is able to go home from rehab. Can you talk with them to help with their decision? Please call Nathaniel Medina at [phone]. They are here till Tuesday 12 noon. Thank you. Willie Kaur APRN.LICENSED MARRIAGE AND FAMILY THERAPIST 12/26/2024 1:10 PM Signed I wish I [...] this patient by: CAREGIVER José Miguel Swanson [facility] Problem List As Of Date [...] 02/19/2011 02/12/2014 (more content not included)... Normal [facility] Absolute lymphocyte countOrd ered By: Mario Mak on 12-24-2024 Lymphocytes Auto (Unsp spec) [#/Vol] 0.98 10*3/uL 0.83-4.51 [facility] Absolute neutrophil countOrd ered By: Mario Mak on 12-24-2024 Neutrophils (Bld) [#/Vol] 3.8 10*3/uL 2.0-7.7 [facility] Albumin to globulin ratioOrd ered By: Mario Mak on 12-24-2024 Albumin/Globulin [Mass ratio] 0.6 {ratio} Low 0.9-2.4 [facility] Automated lymphocyte count a s percentage of total leukocytesOrdered By: Mario Mak on 12-24-2024 Lymphocytes/100 WBC Auto (Unsp spec) 17.8 % Low 19-41 [facility] Basophil percentageOrdered B y: Mario Mak on 12-24-2024 Basophils/100 WBC (Bld) 0.5 % 0-1 [facility] Bilirubin, totalOrdered By: Mario Mak on 12-24-2024 Bilirubin [Mass/Vol] 0.30 mg/dL 0.20-1.00 [facility] Comment on above: For patients on eltr ombopag therapy, use of Dimension [place] TBIL is not recommended. Blood urea nitrogen (BUN)/cr eatinine ratioOrdered By: Mario Mak on 12-24-2024 Urea nitrogen/Creatinine [Mass ratio] 30.0 mg/mg High 10-20 [facility] CBC W/Diff, Automatedon 02- 0-2024 Absolute Lymph 0.98 X10 3/uL Normal 0.83-4.51 [facility] Comment on above: Order Comment: 107.1 Performed By: #### L 503.6030, L503.0105, L506.0250, L500.4050, L100.0100, L101.9900 #### [facility] [address] [place], [address] Absolute Neut 3.8 X10 3/uL Normal 2.0-7.7 [facility] Comment on above: Order Comment: 107.1 Performed By: #### L 503.6030, L503.0105, L506.0250, L500.4050, L100.0100, L101.9900 #### [facility] [address] [place], [address] Basophils/100 WBC (Bld) 0.5 % Normal 0-1 [facility] Comment on above: Order Comment: 107.1 Performed By: #### L 503.6030, L503.0105, L506.0250, L500.4050, L100.0100, L101.9900 #### [facility] [address] [place], [address] Eosinophils/100 WBC (Bld) 5.1 % High 0-5 [facility] Comment on above: Order Comment: 107.1 Performed By: #### L 503.6030, L503.0105, L506.0250, L500.4050, L100.0100, L101.9900 #### [facility] [address] [place], [address] Erythrocyte distribution width (RBC) [Ratio] 16.8 % High 11.6-14.6 [facility] Comment on above: Order Comment: 107.1 Performed By: #### L 503.6030, L503.0105, L506.0250, L500.4050, L100.0100, L101.9900 #### [facility] [address] [place], [address] Hematocrit (Bld) [Volume fraction] 27.5 % Low 37-47 [facility] Comment on above: Order Comment: 107.1 Performed By: #### L 503.6030, L503.0105, L506.0250, L500.4050, L100.0100, L101.9900 #### [facility] [address] [place], [address] Hemoglobin (Bld) [Mass/Vol] 8.9 g/dL Low 12.0-15.0 [facility] Comment on above: Order Comment: 107.1 Performed By: #### L 503.6030, L503.0105, L506.0250, L500.4050, L100.0100, L101.9900 #### [facility] [address] [place], [address] IG% 0.900 Normal 0.0-0.9 [facility] Comment on above: Order Comment: 107.1 Result Comment: IG% - Immature Granulocytes (promyelocytes, myelocytes and metamyelocytes) > 1% indicates that a LEFT SHIFT is Present. Performed By: #### L 503.6030, L503.0105, L506.0250, L500.4050, L100.0100, L101.9900 #### [facility] [address] [place], [address] Lymphocytes/100 WBC (Bld) 17.8 % Low 19-41 [facility] Comment on above: Order Comment: 107.1 Performed By: #### L 503.6030, L503.0105, L506.0250, L500.4050, L100.0100, L101.9900 #### [facility] [address] [place], [address] MCH (RBC) [Entitic mass] 29.0 pg Normal 27.0-32.0 [facility] Comment on above: Order Comment: 107.1 Performed By: #### L 503.6030, L503.0105, L506.0250, L500.4050, L100.0100, L101.9900 #### [facility] [address] [place], [address] MCHC (RBC) [Mass/Vol] 32.4 g/dL Normal 32-36 [facility] Comment on above: Order Comment: 107.1 Performed By: #### L 503.6030, L503.0105, L506.0250, L500.4050, L100.0100, L101.9900 #### [facility] [address] [place], [address] MCV (RBC) [Entitic vol] 89.6 fL Normal 81-99 [facility] Comment on above: Order Comment: 107.1 Performed By: #### L 503.6030, L503.0105, L506.0250, L500.4050, L100.0100, L101.9900 #### [facility] [address] [place], [address] Monocytes/100 WBC (Bld) 7.3 % Normal 0-10 [facility] Comment on above: Order Comment: 107.1 Performed By: #### L 503.6030, L503.0105, L506.0250, L500.4050, L100.0100, L101.9900 #### [facility] [address] [place], [address] Neutrophils/100 WBC (Bld) 68.4 % Normal 47-70 [facility] Comment on above: Order Comment: 107.1 Performed By: #### L 503.6030, L503.0105, L506.0250, L500.4050, L100.0100, L101.9900 #### [facility] [address] [place], [address] Nucleated RBC (Bld) [#/Vol] 0 10*3/uL Normal 0-5 [facility] Comment on above: Order Comment: 107.1 Performed By: #### L 503.6030, L503.0105, L506.0250, L500.4050, L100.0100, L101.9900 #### [facility] [address] [place], [address] Platelet mean volume (Bld) [Entitic vol] 9.3 fL Normal 6.2-12.0 [facility] Comment on above: Order Comment: 107.1 Performed By: #### L 503.6030, L503.0105, L506.0250, L500.4050, L100.0100, L101.9900 #### [facility] [address] [place], [address] Platelets (Bld) [#/Vol] 309 10*3/uL Normal 150-450 [facility] Comment on above: Order Comment: 107.1 Performed By: #### L 503.6030, L503.0105, L506.0250, L500.4050, L100.0100, L101.9900 #### [facility] [address] [place], [address] RBC (Bld) [#/Vol] 3.07 10*6/uL Low 4.2-5.4 [facility] Comment on above: Order Comment: 107.1 Performed By: #### L 503.6030, L503.0105, L506.0250, L500.4050, L100.0100, L101.9900 #### [facility] [address] [place], [address] RDW SD 55.5 fl High 35.1-43.9 [facility] Comment on above: Order Comment: 107.1 Performed By: #### L 503.6030, L503.0105, L506.0250, L500.4050, L100.0100, L101.9900 #### [facility] [address] [place], [address] WBC (Bld) [#/Vol] 5.5 10*3/uL Normal 4.4-11.0 [facility] Comment on above: Order Comment: 107.1 Performed By: #### L 503.6030, L503.0105, L506.0250, L500.4050, L100.0100, L101.9900 #### [facility] [address] [place], [address] Carbon dioxide measurementOr dered By: Mario Mak on 12-24-2024 CO2 [Moles/Vol] 29.0 mmol/L 21.0-32.0 [facility] Chloride measurementOrdered By: Mario Mak on 12-24-2024 Chloride [Moles/Vol] 106 mmol/L 98-107 [facility] Comprehensive Metabolic Prof ilon 12-24-2024 Albumin [Mass/Vol] 2.0 g/dL Low 3.2-5.0 [facility] Comment on above: Order Comment: 107.1 Performed By: #### L 503.6030, L503.0105, L506.0250, L500.4050, L100.0100, L101.9900 #### [facility] [address] [place], [address] Albumin/Globulin [Mass ratio] 0.6 {ratio} Low 0.9-2.4 [facility] Comment on above: Order Comment: 107.1 Performed By: #### L 503.6030, L503.0105, L506.0250, L500.4050, L100.0100, L101.9900 #### [facility] [address] [place], [address] ALK P 108 U/L Normal 45-117 [facility] Comment on above: Order Comment: 107.1 Performed By: #### L 503.6030, L503.0105, L506.0250, L500.4050, L100.0100, L101.9900 #### [facility] [address] [place], [address] ALT [Catalytic activity/Vol] U/L Low 13-56 [facility] Comment on above: Order Comment: 107.1 Performed By: #### L 503.6030, L503.0105, L506.0250, L500.4050, L100.0100, L101.9900 #### [facility] [address] [place], [address] AST [Catalytic activity/Vol] 17 U/L Normal 15-37 [facility] Comment on above: Order Comment: 107.1 Performed By: #### L 503.6030, L503.0105, L506.0250, L500.4050, L100.0100, L101.9900 #### [facility] [address] [place], [address] Bilirubin [Mass/Vol] 0.30 mg/dL Normal 0.20-1.00 [facility] Comment on above: Order Comment: 107.1 Result Comment: For patients on eltrombopag therapy, use of Dimension [place] TBIL is not recommended. Performed By: #### L 503.6030, L503.0105, L506.0250, L500.4050, L100.0100, L101.9900 #### [facility] [address] [place], [address] BUN/CRE 30.0 RATIO High 10-20 [facility] Comment on above: Order Comment: 107.1 Performed By: #### L 503.6030, L503.0105, L506.0250, L500.4050, L100.0100, L101.9900 #### [facility] [address] [place], [address] CA,Total 8.8 mg/dL Normal 8.5-10.1 [facility] Comment on above: Order Comment: 107.1 Performed By: #### L 503.6030, L503.0105, L506.0250, L500.4050, L100.0100, L101.9900 #### [facility] [address] [place], [address] Chloride [Moles/Vol] 106 mmol/L Normal 98-107 [facility] Comment on above: Order Comment: 107.1 Performed By: #### L 503.6030, L503.0105, L506.0250, L500.4050, L100.0100, L101.9900 #### [facility] [address] [place], [address] CO2 [Moles/Vol] 29.0 mmol/L Normal 21.0-32.0 [facility] Comment on above: Order Comment: 107.1 Performed By: #### L 503.6030, L503.0105, L506.0250, L500.4050, L100.0100, L101.9900 #### [facility] [address] [place], [address] Creatinine [Mass/Vol] 0.83 mg/dL Normal 0.55-1.02 [facility] Comment on above: Order Comment: 107.1 Result Comment: The validity of the calculated GFR GFRAA in patients over 70 years has not been determined. Clinical correlation is essential. Performed By: #### L 503.6030, L503.0105, L506.0250, L500.4050, L100.0100, L101.9900 #### [facility] [address] [place], [address] EST GFR - AA 83 mL/min Normal >60 [facility] Comment on above: Order Comment: 107.1 Result Comment: Afri can [place] GFR Calc Performed By: #### L 503.6030, L503.0105, L506.0250, L500.4050, L100.0100, L101.9900 #### [facility] [address] [place], [address] GAP 7 Normal 5-15 [facility] Comment on above: Order Comment: 107.1 Performed By: #### L 503.6030, L503.0105, L506.0250, L500.4050, L100.0100, L101.9900 #### [facility] [address] [place], [address] GFR/1.73 sq M.predicted among non-blacks MDRD (S/P/Bld) [Vol rate/Area] 68 mL/min/{1.73_m2} Normal >60 [facility] Comment on above: Order Comment: 107.1 Result Comment: Non- GFR Calc Performed By: #### L 503.6030, L503.0105, L506.0250, L500.4050, L100.0100, L101.9900 #### [facility] [address] [place], [address] Globulin (S) [Mass/Vol] 3.4 g/dL Normal 2.2-4.2 [facility] Comment on above: Order Comment: 107.1 Performed By: #### L 503.6030, L503.0105, L506.0250, L500.4050, L100.0100, L101.9900 #### [facility] [address] [place], [address] Glucose [Mass/Vol] 76 mg/dL Normal 74-106 [facility] Comment on above: Order Comment: 107.1 Performed By: #### L 503.6030, L503.0105, L506.0250, L500.4050, L100.0100, L101.9900 #### [facility] [address] [place], [address] Potassium [Moles/Vol] 4.0 mmol/L Normal 3.5-5.1 [facility] Comment on above: Order Comment: 107.1 Performed By: #### L 503.6030, L503.0105, L506.0250, L500.4050, L100.0100, L101.9900 #### [facility] [address] [place], [address] Sodium [Moles/Vol] 141 mmol/L Normal 136-145 [facility] Comment on above: Order Comment: 107.1 Performed By: #### L 503.6030, L503.0105, L506.0250, L500.4050, L100.0100, L101.9900 #### [facility] [address] [place], [address] T PROT 5.4 g/dL Low 6.4-8.2 [facility] Comment on above: Order Comment: 107.1 Performed By: #### L 503.6030, L503.0105, L506.0250, L500.4050, L100.0100, L101.9900 #### [facility] [address] [place], [address] Urea nitrogen [Mass/Vol] 25 mg/dL High 7-18 [facility] Comment on above: Order Comment: 107.1 Performed By: #### L 503.6030, L503.0105, L506.0250, L500.4050, L100.0100, L101.9900 #### [facility] [address] [place], [address] Eosinophil percentageOrdered By: Mario Mak on 12-24-2024 Eosinophils/100 WBC (Bld) 5.1 % High 0-5 [facility] Erythrocyte Sed Rateon 12-24 SED RATE 38 mm/hr High 0-30 [facility] Comment on above: Order Comment: 107.1 Performed By: #### L 503.6030, L503.0105, L506.0250, L500.4050, L100.0100, L101.9900 #### [facility] [address] [place], [address] Erythrocyte distribution wid th (RBC) [Ratio]Ordered By: Mario Mak on 12-24-2024 Erythrocyte distribution width (RBC) [Entitic vol] 55.5 fL High 35.1-43.9 [facility] Erythrocyte distribution wid th ratioOrdered By: Mario Mak on 12-24-2024 Erythrocyte distribution width (RBC) [Ratio] 16.8 % High 11.6-14.6 [facility] Erythrocyte distribution wid th standard deviationOrdered By: Mario Mak on 12-24-2024 Erythrocyte distribution width (RBC) [Ratio] 55.5 fl High 35.1-43.9 [facility] Erythrocyte sedimentation ra teOrdered By: Mario Mak on 12-24-2024 ESR (Bld) [Velocity] 38 mm/h High 0-30 [facility] Estimated glomerular filtrat ion rate (GFR) AmericanOrdered By: Mario Mak on 12-24-2024 Estimated GFR (MDRD) Amer 83 mL/min >60 [facility] Comment on above: GFR Calc Folates, (Folic Acid)on 12-15 FOLATES 6.70 ng/mL Normal 3.1-55.4 [facility] Comment on above: Order Comment: 107.1 N Performed By: #### L 503.6030, L503.0105, L506.0250, L500.4050, L100.0100, L101.9900 #### [facility] [address] [place], [address] Folic acid measurementOrdere d By: Mario Mak on 12-24-2024 Folate 6.70 ng/mL 3.1-55.4 [facility] Glomerular filtration rate ( GFR) estimationOrdered By: Mario Mak on 12-24-2024 Estimated GFR (MDRD) Non-Af Amer 68 mL/min >60 [facility] Comment on above: Non- GFR Calc GFR/1.73 sq M.predicted among non-blacks MDRD (S/P/Bld) [Vol rate/Area] 68 mL/min/{1.73_m2} >60 [facility] Comment on above: Non- GFR Calc Glucose measurementOrdered B y: Mario Mak on 12-24-2024 Glucose [Mass/Vol] 76 mg/dL 74-106 [facility] Hematocrit Auto (Bld) [Volum e fraction]Ordered By: Mario Mak on 12-24-2024 Hematocrit (Bld) [Volume fraction] 27.5 % Low 37-47 [facility] Hemoglobin measurementOrdere d By: Mario Mak on 12-24-2024 Hemoglobin (Bld) [Mass/Vol] 8.9 g/dL Low 12.0-15.0 [facility] Immature granulocytes/100 WB C Auto (Bld)Ordered By: Mario Mak on 12-24-2024 Immature granulocytes/100 WBC (Bld) 0.900 % 0.0-0.9 [facility] Comment on above: IG% - Immature Granu locytes (promyelocytes, myelocytes and metamyelocytes) > 1% indicates that a LEFT SHIFT is Present. Iron (Unsp spec) [Mass/Mass] Ordered By: Mario Mak on 12-24-2024 Iron [Mass/Vol] 58 ug/dL 50-170 [facility] Iron measurement (mass/mass) Ordered By: Mario Mak on 12-24-2024 Iron (Unsp spec) [Mass/Mass] 58 ug/dL 50-170 [facility] Iron saturation [Mass fracti on]Ordered By: Mario Mak on 12-24-2024 Iron Saturation 35.4 % 15.0-55.0 [facility] Iron+Iron Binding Capacityon 12-24-2024 Iron [Mass/Vol] 58 ug/dL Normal 50-170 [facility] Comment on above: Order Comment: 107.1 Performed By: #### L 503.6030, L503.0105, L506.0250, L500.4050, L100.0100, L101.9900 #### [facility] [address] [place], [place], [address] IRON SATURATION 35.4 Normal 15.0-55.0 [facility] Comment on above: Order Comment: 107.1 Performed By: #### L 503.6030, L503.0105, L506.0250, L500.4050, L100.0100, L101.9900 #### [facility] [address] [place], [address] TIBC 164 ug/dL Low 250-450 [facility] Comment on above: Order Comment: 107.1 Performed By: #### L 503.6030, L503.0105, L506.0250, L500.4050, L100.0100, L101.9900 #### [facility] [address] [place], [place], [id number] Laboratory - Chemistry and C hemistry - challengeOrdered By: Mario Mak on 12-24-2024 AST [Catalytic activity/Vol] 17 U/L 15-37 [facility] Lymphocytes Auto (Unsp spec) [#/Vol]Ordered By: Mario Mak on 12-24-2024 Lymphocytes (Bld) [#/Vol] 0.98 10*3/uL 0.83-4.51 [facility] Lymphocytes/100 WBC Auto (Un sp spec)Ordered By: Mario Mak on 12-24-2024 Lymphocytes/100 WBC (Bld) 17.8 % Low 19-41 [facility] MCV (mean corpuscular volume ) determinationOrdered By: Mario Mak on 12-24-2024 MCV (RBC) [Entitic vol] 89.6 fL 81-99 [facility] Mean corpuscular hemoglobin (MCH) determinationOrdered By: Mario Mak on 12-24-2024 MCH (RBC) [Entitic mass] 29.0 pg 27.0-32.0 [facility] Mean corpuscular hemoglobin concentration (MCHC) determinationOrdered By: Mario Mak on 12-24-2024 MCHC (RBC) [Mass/Vol] 32.4 g/dL 32-36 [facility] Mean platelet volume determi nationOrdered By: Mario Mak on 12-24-2024 Platelet mean volume (Bld) [Entitic vol] 9.3 fL 6.2-12.0 [facility] Monocyte percentageOrdered B y: Mario Mak on 12-24-2024 Monocytes/100 WBC (Bld) 7.3 % 0-10 [facility] Neutrophil percentageOrdered By: Mario Mak on 12-24-2024 Neutrophils/100 WBC (Bld) 68.4 % 47-70 [facility] Nucleated red blood cell per centageOrdered By: Mario Mak on 12-24-2024 Nucleated RBC/100 WBC (Bld) [Ratio] 0 % 0-5 [facility] Platelet countOrdered By: Moreno on 12-24-2024 Platelets (Bld) [#/Vol] 309 10*3/uL 150-450 [facility] Potassium measurementOrdered By: Mario Mak on 12-24-2024 Potassium [Moles/Vol] 4.0 mmol/L 3.5-5.1 [facility] RBC Auto (Bld) [#/Vol]Ordere d By: Mario Mak on 12-24-2024 RBC (Bld) [#/Vol] 3.07 10*6/uL Low 4.2-5.4 [facility] Serum anion gap measurementO rdered By: Mario Mak on 12-24-2024 Anion gap [Moles/Vol] 7 mmol/L 5-15 [facility] Serum globulin measurementOr dered By: Mario Mak on 12-24-2024 Globulin (S) [Mass/Vol] 3.4 g/dL 2.2-4.2 [facility] Serum or plasma alanine melara otransferase (ALT) measurementOrdered By: Mario Mak on 12-24-2024 ALT [Catalytic activity/Vol] U/L Low 13-56 [facility] Serum or plasma albumin roma urement (mass/volume)Ordered By: Mario Mak on 12-24-2024 Albumin [Mass/Vol] 2.0 g/dL Low 3.2-5.0 [facility] Serum or plasma alkaline krystal sphatase measurementOrdered By: Mario Mak on 12-24-2024 ALP [Catalytic activity/Vol] 108 U/L 45-117 [facility] Serum or plasma calcium roma urement (mass/volume)Ordered By: Mario Mak on 12-24-2024 Calcium [Mass/Vol] 8.8 mg/dL 8.5-10.1 [facility] Serum or plasma creatinine m easurement (mass/volume)Ordered By: Mario Mak on 12-24-2024 Creatinine [Mass/Vol] 0.83 mg/dL 0.55-1.02 [facility] Comment on above: The validity of the calculated GFR & GFRAA in patients over 70 years has not been determined. Clinical correlation is essential. Serum or plasma iron saturat ion measurement (mass fraction)Ordered By: Mario Mak on 12-24-2024 Iron saturation [Mass fraction] 35.4 % 15.0-55.0 [facility] Serum or plasma urea nitroge n measurement (mass/volume)Ordered By: Mario Mak on 12-24-2024 Urea nitrogen [Mass/Vol] 25 mg/dL High 7-18 [facility] Sodium levelOrdered By: Mario Mak on 12-24-2024 Sodium [Moles/Vol] 141 mmol/L 136-145 [facility] TIBCOrdered By: Mario Mak on 12-24-2024 Total Iron Binding Capacity 164 ug/dL Low 250-450 [facility] Total proteinOrdered By: Shwetha Mak on 12-24-2024 Protein [Mass/Vol] 5.4 g/dL Low 6.4-8.2 [facility] Vitamin B12on 12-24-2024 Cobalamin (Vitamin B12) [Mass/Vol] 407 pg/mL Normal 211-911 [facility] Comment on above: Order Comment: 107.1 Performed By: #### L 503.6030, L503.0105, L506.0250, L500.4050, L100.0100, L101.9900 #### [facility] [address] [place], [address] Vitamin B12 measurementOrder ed By: Mario Mak on 12-24-2024 Cobalamin (Vitamin B12) [Mass/Vol] 407 pg/mL 211-911 [facility] White blood cell (WBC) count Ordered By: Mario Mak on 12-24-2024 WBC (Bld) [#/Vol] 5.5 10*3/uL 4.4-11.0 [facility] Albumin to globulin ratioOrd ered By: Mario Mak on 12-17-2024 Albumin/Globulin [Mass ratio] 0.6 {ratio} Low 0.9-2.4 [facility] Bilirubin, totalOrdered By: Mario Mak on 12-17-2024 Bilirubin [Mass/Vol] 0.30 mg/dL 0.20-1.00 [facility] Comment on above: For patients on eltr ombopag therapy, use of Dimension [place] TBIL is not recommended. Blood urea nitrogen (BUN)/cr eatinine ratioOrdered By: Mario Mak on 12-17-2024 Urea nitrogen/Creatinine [Mass ratio] 38.9 mg/mg High 10-20 [facility] CBC-Complete Blood Cnt No Di ffon 12-17-2024 Erythrocyte distribution width (RBC) [Ratio] 17.8 % High 11.6-14.6 [facility] Comment on above: Order Comment: 107.1 Performed By: #### L 500.4050, L101.9900, L100.0500 #### [facility] [address] [place], [address] Hematocrit (Bld) [Volume fraction] 24.9 % Low 37-47 [facility] Comment on above: Order Comment: 107.1 Performed By: #### L 500.4050, L101.9900, L100.0500 #### [facility] [address] [place], [address] Hemoglobin (Bld) [Mass/Vol] 7.7 g/dL Low 12.0-15.0 [facility] Comment on above: Order Comment: 107.1 Performed By: #### L 500.4050, L101.9900, L100.0500 #### [facility] [address] [place], [address] MCH (RBC) [Entitic mass] 28.3 pg Normal 27.0-32.0 [facility] Comment on above: Order Comment: 107.1 Performed By: #### L 500.4050, L101.9900, L100.0500 #### [facility] [address] [place], [address] MCHC (RBC) [Mass/Vol] 30.9 g/dL Low 32-36 [facility] Comment on above: Order Comment: 107.1 Performed By: #### L 500.4050, L101.9900, L100.0500 #### [facility] [address] [place], [address] MCV (RBC) [Entitic vol] 91.5 fL Normal 81-99 [facility] Comment on above: Order Comment: 107.1 Performed By: #### L 500.4050, L101.9900, L100.0500 #### [facility] [address] [place], [address] Platelet mean volume (Bld) [Entitic vol] 8.7 fL Normal 6.2-12.0 [facility] Comment on above: Order Comment: 107.1 Performed By: #### L 500.4050, L101.9900, L100.0500 #### [facility] [address] [place], [address] Platelets (Bld) [#/Vol] 391 10*3/uL Normal 150-450 [facility] Comment on above: Order Comment: 107.1 Performed By: #### L 500.4050, L101.9900, L100.0500 #### [facility] [address] [place], [address] RBC (Bld) [#/Vol] 2.72 10*6/uL Low 4.2-5.4 [facility] Comment on above: Order Comment: 107.1 Performed By: #### L 500.4050, L101.9900, L100.0500 #### [facility] [address] [place], [address] RDW SD 59.4 fl High 35.1-43.9 [facility] Comment on above: Order Comment: 107.1 Performed By: #### L 500.4050, L101.9900, L100.0500 #### [facility] [address] [place], [address] WBC (Bld) [#/Vol] 7.6 10*3/uL Normal 4.4-11.0 [facility] Comment on above: Order Comment: 107.1 Performed By: #### L 500.4050, L101.9900, L100.0500 #### [facility] [address] [place], [address] Carbon dioxide measurementOr dered By: Mario Mak on 12-17-2024 CO2 [Moles/Vol] 25.0 mmol/L 21.0-32.0 [facility] Chloride measurementOrdered By: Mario Mak on 12-17-2024 Chloride [Moles/Vol] 104 mmol/L 98-107 [facility] Comprehensive Metabolic Prof ilon 12-17-2024 Albumin [Mass/Vol] 1.9 g/dL Low 3.2-5.0 [facility] Comment on above: Order Comment: 107.1 Performed By: #### L 500.4050, L101.9900, L100.0500 #### [facility] [address] [place], [address] Albumin/Globulin [Mass ratio] 0.6 {ratio} Low 0.9-2.4 [facility] Comment on above: Order Comment: 107.1 Performed By: #### L 500.4050, L101.9900, L100.0500 #### [facility] [address] [place], [address] ALK P 96 U/L Normal 45-117 [facility] Comment on above: Order Comment: 107.1 Performed By: #### L 500.4050, L101.9900, L100.0500 #### [facility] [address] [place], [address] ALT [Catalytic activity/Vol] 9 U/L Low 13-56 [facility] Comment on above: Order Comment: 107.1 Performed By: #### L 500.4050, L101.9900, L100.0500 #### [facility] [address] [place], [address] AST [Catalytic activity/Vol] 26 U/L Normal 15-37 [facility] Comment on above: Order Comment: 107.1 Performed By: #### L 500.4050, L101.9900, L100.0500 #### [facility] [address] [place], [address] Bilirubin [Mass/Vol] 0.30 mg/dL Normal 0.20-1.00 [facility] Comment on above: Order Comment: 107.1 Result Comment: For patients on eltrombopag therapy, use of Dimension [place] TBIL is not recommended. Performed By: #### L 500.4050, L101.9900, L100.0500 #### [facility] [address] [place], [address] BUN/CRE 38.9 RATIO High 10-20 [facility] Comment on above: Order Comment: 107.1 Performed By: #### L 500.4050, L101.9900, L100.0500 #### [facility] [address] [place], [address] CA,Total 8.4 mg/dL Low 8.5-10.1 [facility] Comment on above: Order Comment: 107.1 Performed By: #### L 500.4050, L101.9900, L100.0500 #### [facility] [address] [place], [address] Chloride [Moles/Vol] 104 mmol/L Normal 98-107 [facility] Comment on above: Order Comment: 107.1 Performed By: #### L 500.4050, L101.9900, L100.0500 #### [facility] [address] [place], [address] CO2 [Moles/Vol] 25.0 mmol/L Normal 21.0-32.0 [facility] Comment on above: Order Comment: 107.1 Performed By: #### L 500.4050, L101.9900, L100.0500 #### [facility] [address] [place], [address] Creatinine [Mass/Vol] 0.77 mg/dL Normal 0.55-1.02 [facility] Comment on above: Order Comment: 107.1 Result Comment: The validity of the calculated GFR GFRAA in patients over 70 years has not been determined. Clinical correlation is essential. Performed By: #### L 500.4050, L101.9900, L100.0500 #### [facility] [address] [place], [address] EST GFR - AA 91 mL/min Normal >60 [facility] Comment on above: Order Comment: 107.1 Result Comment: Afri can [place] GFR Calc Performed By: #### L 500.4050, L101.9900, L100.0500 #### [facility] [address] [place], [address] GAP 8 Normal 5-15 [facility] Comment on above: Order Comment: 107.1 Performed By: #### L 500.4050, L101.9900, L100.0500 #### [facility] [address] [place], [address] GFR/1.73 sq M.predicted among non-blacks MDRD (S/P/Bld) [Vol rate/Area] 75 mL/min/{1.73_m2} Normal >60 [facility] Comment on above: Order Comment: 107.1 Result Comment: Non- GFR Calc Performed By: #### L 500.4050, L101.9900, L100.0500 #### [facility] [address] [place], [address] Globulin (S) [Mass/Vol] 3.2 g/dL Normal 2.2-4.2 [facility] Comment on above: Order Comment: 107.1 Performed By: #### L 500.4050, L101.9900, L100.0500 #### [facility] [address] [place], [address] Glucose [Mass/Vol] 203 mg/dL High 74-106 [facility] Comment on above: Order Comment: 107.1 Result Comment: Gluc ose result greater than or equal to 200 mg/dL suggests DIABETES MELLITUS per A.D.A. criteria. Performed By: #### L 500.4050, L101.9900, L100.0500 #### [facility] [address] [place], [address] Potassium [Moles/Vol] 4.2 mmol/L Normal 3.5-5.1 [facility] Comment on above: Order Comment: 107.1 Performed By: #### L 500.4050, L101.9900, L100.0500 #### [facility] [address] [place], [address] Sodium [Moles/Vol] 137 mmol/L Normal 136-145 [facility] Comment on above: Order Comment: 107.1 Performed By: #### L 500.4050, L101.9900, L100.0500 #### [facility] [address] [place], [address] T PROT 5.1 g/dL Low 6.4-8.2 [facility] Comment on above: Order Comment: 107.1 Performed By: #### L 500.4050, L101.9900, L100.0500 #### [facility] [address] [place], [address] Urea nitrogen [Mass/Vol] 30 mg/dL High 7-18 [facility] Comment on above: Order Comment: 107.1 Performed By: #### L 500.4050, L101.9900, L100.0500 #### [facility] [address] [place], [address] Erythrocyte Sed Rateon 12-17 SED RATE 24 mm/hr Normal 0-30 [facility] Comment on above: Order Comment: 107.1 Performed By: #### L 500.4050, L101.9900, L100.0500 #### [facility] [address] [place], [address] Erythrocyte distribution wid th (RBC) [Ratio]Ordered By: Mario Mak on 12-17-2024 Erythrocyte distribution width (RBC) [Entitic vol] 59.4 fL High 35.1-43.9 [facility] Erythrocyte distribution wid th ratioOrdered By: Mario Mak on 12-17-2024 Erythrocyte distribution width (RBC) [Ratio] 17.8 % High 11.6-14.6 [facility] Erythrocyte distribution wid th standard deviationOrdered By: Mario Mak on 12-17-2024 Erythrocyte distribution width (RBC) [Ratio] 59.4 fl High 35.1-43.9 [facility] Erythrocyte sedimentation ra teOrdered By: Mario Mak on 12-17-2024 ESR (Bld) [Velocity] 24 mm/h 0-30 [facility] Estimated glomerular filtrat ion rate (GFR) AmericanOrdered By: Mario Mak on 12-17-2024 Estimated GFR (MDRD) Amer 91 mL/min >60 [facility] Comment on above: GFR Calc Glomerular filtration rate ( GFR) estimationOrdered By: Mario Mak on 12-17-2024 Estimated GFR (MDRD) Non-Af Amer 75 mL/min >60 [facility] Comment on above: Non- GFR Calc GFR/1.73 sq M.predicted among non-blacks MDRD (S/P/Bld) [Vol rate/Area] 75 mL/min/{1.73_m2} >60 [facility] Comment on above: Non- GFR Calc Glucose measurementOrdered B y: Mario Mak on 12-17-2024 Glucose [Mass/Vol] 203 mg/dL High 74-106 [facility] Comment on above: Glucose result great er than or equal to 200 mg/dLsuggests DIABETES MELLITUS per A.D.A. criteria. Hematocrit Auto (Bld) [Volum e fraction]Ordered By: Mario Mak on 12-17-2024 Hematocrit (Bld) [Volume fraction] 24.9 % Low 37-47 [facility] Hemoglobin measurementOrdere d By: Mario Mak on 12-17-2024 Hemoglobin (Bld) [Mass/Vol] 7.7 g/dL Low 12.0-15.0 [facility] - Chemistry and C hemistry - challengeOrdered By: Mario Mak on 12-17-2024 AST [Catalytic activity/Vol] 26 U/L 15-37 [facility] MCV (mean corpuscular volume ) determinationOrdered By: Mario Mak on 12-17-2024 MCV (RBC) [Entitic vol] 91.5 fL 81-99 [facility] Mean corpuscular hemoglobin (MCH) determinationOrdered By: Mario Mak on 12-17-2024 MCH (RBC) [Entitic mass] 28.3 pg 27.0-32.0 [facility] Mean corpuscular hemoglobin concentration (MCHC) determinationOrdered By: Mario Mak on 12-17-2024 MCHC (RBC) [Mass/Vol] 30.9 g/dL Low 32-36 [facility] Mean platelet volume determi nationOrdered By: Mario Mak on 12-17-2024 Platelet mean volume (Bld) [Entitic vol] 8.7 fL 6.2-12.0 [facility] Platelet countOrdered By: Moreno on 12-17-2024 Platelets (Bld) [#/Vol] 391 10*3/uL 150-450 [facility] Potassium measurementOrdered By: Mario Mak on 12-17-2024 Potassium [Moles/Vol] 4.2 mmol/L 3.5-5.1 [facility] RBC Auto (Bld) [#/Vol]Ordere d By: Mario Mak on 12-17-2024 RBC (Bld) [#/Vol] 2.72 10*6/uL Low 4.2-5.4 [facility] Serum anion gap measurementO rdered By: Mario Mak on 12-17-2024 Anion gap [Moles/Vol] 8 mmol/L 5-15 [facility] Serum globulin measurementOr dered By: Mario Mak on 12-17-2024 Globulin (S) [Mass/Vol] 3.2 g/dL 2.2-4.2 [facility] Serum or plasma alanine melara otransferase (ALT) measurementOrdered By: Mario Mak on 12-17-2024 ALT [Catalytic activity/Vol] 9 U/L Low 13-56 [facility] Serum or plasma albumin roma urement (mass/volume)Ordered By: Mario Mak on 12-17-2024 Albumin [Mass/Vol] 1.9 g/dL Low 3.2-5.0 [facility] Serum or plasma alkaline krystal sphatase measurementOrdered By: Mario Mak on 12-17-2024 ALP [Catalytic activity/Vol] 96 U/L 45-117 [facility] Serum or plasma calcium roma urement (mass/volume)Ordered By: Mario Mak on 12-17-2024 Calcium [Mass/Vol] 8.4 mg/dL Low 8.5-10.1 [facility] Serum or plasma creatinine m easurement (mass/volume)Ordered By: Mario Mak on 12-17-2024 Creatinine [Mass/Vol] 0.77 mg/dL 0.55-1.02 [facility] Comment on above: The validity of the calculated GFR & GFRAA in patients over 70 years has not been determined. Clinical correlation is essential. Serum or plasma urea nitroge n measurement (mass/volume)Ordered By: Mario Mak on 12-17-2024 Urea nitrogen [Mass/Vol] 30 mg/dL High 7-18 [facility] Sodium levelOrdered By: Mario Mak on 12-17-2024 Sodium [Moles/Vol] 137 mmol/L 136-145 [facility] Total proteinOrdered By: Shwetha Mak on 12-17-2024 Protein [Mass/Vol] 5.1 g/dL Low 6.4-8.2 [facility] White blood cell (WBC) count Ordered By: Mario Mak on 12-17-2024 WBC (Bld) [#/Vol] 7.6 10*3/uL 4.4-11.0 [facility] ANES POSTPROC EVALon 025 ANES POSTPROC EVAL Normal [facility] ANES PRE-OPon 12-12-2024 ANES PRE-OP Normal [facility] BRIEF OP NOTon 12-12-2024 BRIEF OP NOT Normal [facility] Basic metabolic 2000 panelon 12-12-2024 Anion gap [Moles/Vol] 9 mmol/L Normal 8-15 [facility] Comment on above: Order Comment: Speci men Type: BLOOD SPECIMENOrdering Facility: [facility] Address: [address] [place] [address] Performed By: #### 2 4321-2 ####[facility] LABORATORYCLIA [id number] [place] [address] [place] Calcium [Mass/Vol] 8.9 mg/dL Normal 8.5-10.2 [facility] Comment on above: Order Comment: Speci men Type: BLOOD SPECIMENOrdering Facility: [facility] Address: [address] [place] [address] Performed By: #### 2 4321-2 ####GREELEY LABORATORYCLIA [id number] [address] [place] Chloride [Moles/Vol] 104 mmol/L Normal 98-107 [facility] Comment on above: Order Comment: Speci men Type: BLOOD SPECIMENOrdering Facility: [facility] Address: [address] [place] [address] Performed By: #### 2 4321-2 ####VILLARREAL LABORATORYCLIA [id number] [address] [place] CO2 [Moles/Vol] 24 mmol/L Normal 22-30 [facility] Comment on above: Order Comment: Speci men Type: BLOOD SPECIMENOrdering Facility: [facility] Address: [address] [place] [address] Performed By: #### 2 4321-2 ####VILLARREAL LABORATORYCLIA [id number] [address] Creatinine [Mass/Vol] 0.74 mg/dL Normal 0.58-0.96 [facility] Comment on above: Order Comment: Speci men Type: BLOOD SPECIMENOrdering Facility: [facility] Address: [address] [place] [address] Performed By: #### 2 4321-2 ####VILLARREAL LABORATORYCLIA [id number] [address] Creatinine and Glomerular filtration rate.predicted panel (S/P/Bld) 78 mL/min/1.73m??? Normal >=60 [facility] Comment on above: Order Comment: Speci men Type: BLOOD SPECIMENOrdering Facility: [facility] Address: [address] [place] [address] Result Comment: Hilda mated Glomerular Filtration Rate [...] Performed By: #### 2 4321-2 ####VILLARREAL LABORATORYCLIA [id number] [place] [address] [place] Glucose [Mass/Vol] 139 mg/dL High 74-99 [facility] Comment on above: Order Comment: Speci men Type: BLOOD SPECIMENOrdering Facility: [facility] Address: [address] [place], [place] [address] Result Comment: The [place] [employer] (ADA) provides guidance for cutoff [...] Standards of Medical Care in Diabetes 2016, [place] [employer]. Diabetes Care. 2016.39(Suppl 1). Performed By: #### 2 4321-2 ####VILLARREAL LABORATORYCLIA [id number] [place] [address] [place] Potassium [Moles/Vol] 3.8 mmol/L Normal 3.7-5.1 [facility] Comment on above: Order Comment: Fan halina Type: BLOOD SPECIMENOrdering Facility: [facility] Address: [address] [place] [address] Performed By: #### 2 4321-2 ####VILLARREAL LABORATORYCLIA [id number] [place] [address] [place] Sodium [Moles/Vol] 137 mmol/L Normal 136-144 [facility] Comment on above: Order Comment: Katei halina Type: BLOOD SPECIMENOrdering Facility: [facility] Address: [address] [place] [address] Performed By: #### 2 4321-2 ####VILLARREAL LABORATORYCLIA [id number] [place] [id number] [place] Urea nitrogen [Mass/Vol] 24 mg/dL High 7-21 [facility] Comment on above: Order Comment: Speci men Type: BLOOD SPECIMENOrdering Facility: [facility] Address: [address] [place] [address] Performed By: #### 2 4321-2 ####VILLARREAL LABORATORYCLIA [id number] [place] [address] [place] CASE MANAGEMon 12-12-2024 CASE MANAGEM Normal [facility] CASE MANAGEM [facility] CBC W Auto Differential pane l (Bld)on 12-12-2024 Basophils (Bld) [#/Vol] 0.03 10*3/uL Normal <0.11 [facility] Comment on above: Order Comment: Speci men Type: BLOOD SPECIMENOrdering Facility: [facility] Address: [address] [place] [address] Performed By: #### 5 7021-8 ####VILLARREAL LABORATORYCLIA [id number] [address] [place] Basophils/100 WBC (Bld) 0.3 % Normal [facility] Comment on above: Order Comment: Speci men Type: BLOOD SPECIMENOrdering Facility: [facility] Address: [address] [place] [address] Performed By: #### 5 7021-8 ####VILLARREAL LABORATORYCLIA [id number] [place] [address] [place] Differential cell count method Nom (Bld) Auto Normal [facility] Comment on above: Order Comment: Speci men Type: BLOOD SPECIMENOrdering Facility: [facility] Address: [address] [place] [address] Performed By: #### 5 7021-8 ####VILLARREAL LABORATORYCLIA [id number] [place] [address] [place] Eosinophils (Bld) [#/Vol] 0.15 10*3/uL Normal <0.46 [facility] Comment on above: Order Comment: Speci men Type: BLOOD SPECIMENOrdering Facility: [facility] Address: [address] [place] [address] Performed By: #### 5 7021-8 ####VILLARREAL LABORATORYCLIA [id number] [place] [address] [place] Eosinophils/100 WBC (Bld) 1.7 % Normal [facility] Comment on above: Order Comment: Speci men Type: BLOOD SPECIMENOrdering Facility: [facility] Address: [address] [place] [address] Performed By: #### 5 7021-8 ####VILLARREAL LABORATORYCLIA [id number] [place] [address] [place] Erythrocyte distribution width (RBC) [Ratio] 16.7 % High 11.5-15.0 [facility] Comment on above: Order Comment: Speci men Type: BLOOD SPECIMENOrdering Facility: [facility] Address: [address] [place] [address] Performed By: #### 5 7021-8 ####VILLARREAL LABORATORYCLIA [id number] [place] [address] [place] Hematocrit (Bld) [Volume fraction] 24.4 % Low 36.0-46.0 [facility] Comment on above: Order Comment: Speci men Type: BLOOD SPECIMENOrdering Facility: [facility] Address: [address] [place] [address] Performed By: #### 5 7021-8 ####VILLARREAL LABORATORYCLIA [id number] [place] [address] [place] Hemoglobin (Bld) [Mass/Vol] 7.8 g/dL Low 11.5-15.5 [facility] Comment on above: Order Comment: Speci men Type: BLOOD SPECIMENOrdering Facility: [facility] Address: [address] [place] [address] Performed By: #### 5 7021-8 ####VILLARREAL LABORATORYCLIA [id number] [place] [address] [place] Immature granulocytes (Bld) [#/Vol] 0.10 10*3/uL High <0.10 [facility] Comment on above: Order Comment: Speci men Type: BLOOD SPECIMENOrdering Facility: [facility] Address: [address] [place] [address] Performed By: #### 5 7021-8 ####VILLARREAL LABORATORYCLIA [id number] [place] [address] [place] Immature granulocytes/100 WBC (Bld) 1.2 % Normal [facility] Comment on above: Order Comment: Speci men Type: BLOOD SPECIMENOrdering Facility: [facility] Address: [address] [place] [address] Performed By: #### 5 7021-8 ####VILLARREAL LABORATORYCLIA [id number] [address] Lymphocytes (Bld) [#/Vol] 1.19 10*3/uL Normal 1.00-4.00 [facility] Comment on above: Order Comment: Speci men Type: BLOOD SPECIMENOrdering Facility: [facility] Address: [address] [place] [address] Performed By: #### 5 7021-8 ####VILLARREAL LABORATORYCLIA [id number] [address] Lymphocytes/100 WBC (Bld) 13.7 % Normal [facility] Comment on above: Order Comment: Speci men Type: BLOOD SPECIMENOrdering Facility: [facility] Address: [address] [place] [address] Performed By: #### 5 7021-8 ####VILLARREAL LABORATORYCLIA [id number] [address] MCH (RBC) [Entitic mass] 28.1 pg Normal 26.0-34.0 [facility] Comment on above: Order Comment: Speci men Type: BLOOD SPECIMENOrdering Facility: [facility] Address: [address] [place] [address] Performed By: #### 5 7021-8 ####VILLARREAL LABORATORYCLIA [id number] [address] [place] [facility] MCHC (RBC) [Mass/Vol] 32.0 g/dL Normal 30.5-36.0 [facility] Comment on above: Order Comment: Speci men Type: BLOOD SPECIMENOrdering Facility: [facility] Address: [address] [place] [address] Performed By: #### 5 7021-8 ####VILLARREAL LABORATORYCLIA [id number] [place] [address] [place] MCV (RBC) [Entitic vol] 87.8 fL Normal 80.0-100.0 [facility] Comment on above: Order Comment: Speci men Type: BLOOD SPECIMENOrdering Facility: [facility] Address: [address] [place] [address] Performed By: #### 5 7021-8 ####VILLARREAL LABORATORYCLIA [id number] [place] [address] [place] Monocytes (Bld) [#/Vol] 0.66 10*3/uL Normal <0.87 [facility] Comment on above: Order Comment: Speci men Type: BLOOD SPECIMENOrdering Facility: [facility] Address: [address] [place] [address] Performed By: #### 5 7021-8 ####VILLARREAL LABORATORYCLIA [id number] [address] Monocytes/100 WBC (Bld) 7.6 % Normal [facility] Comment on above: Order Comment: Speci men Type: BLOOD SPECIMENOrdering Facility: [facility] Address: [address] [place] [address] Performed By: #### 5 7021-8 ####VILLARREAL LABORATORYCLIA [id number] [place] [address] [place] Neutrophils (Bld) [#/Vol] 6.54 10*3/uL Normal 1.45-7.50 [facility] Comment on above: Order Comment: Speci men Type: BLOOD SPECIMENOrdering Facility: [facility] Address: [address] [place] [address] Performed By: #### 5 7021-8 ####VILLARREAL LABORATORYCLIA [id number] [place] [id number] [place] Neutrophils/100 WBC (Bld) 75.5 % Normal [facility] Comment on above: Order Comment: Speci men Type: BLOOD SPECIMENOrdering Facility: [facility] Address: [address] [place] [address] Performed By: #### 5 7021-8 ####VILLARREAL LABORATORYCLIA [id number] [place] [address] [place] Nucleated RBC (Bld) [#/Vol] 10*3/uL Normal <0.01 [facility] Comment on above: Order Comment: Speci men Type: BLOOD SPECIMENOrdering Facility: [facility] Address: [address] [place] [address] Performed By: #### 5 7021-8 ####VILLARREAL LABORATORYCLIA [id number] [place] [id number] [place] Nucleated RBC/100 WBC (Bld) [Ratio] 0.0 /100 WBC Normal [facility] Comment on above: Order Comment: Speci men Type: BLOOD SPECIMENOrdering Facility: [facility] Address: [address] [place] [address] Performed By: #### 5 7021-8 ####VILLARREAL LABORATORYCLIA [id number] [place] [address] [place] Platelet mean volume (Bld) [Entitic vol] 8.0 fL Low 9.0-12.7 [facility] Comment on above: Order Comment: Speci men Type: BLOOD SPECIMENOrdering Facility: [facility] Address: [address] [place] [address] Performed By: #### 5 7021-8 ####VILLARREAL LABORATORYCLIA [id number] [place] [address] [place] Platelets (Bld) [#/Vol] 571 10*3/uL High 150-400 [facility] Comment on above: Order Comment: Speci men Type: BLOOD SPECIMENOrdering Facility: [facility] Address: [address] [place] [address] Performed By: #### 5 7021-8 ####VILLARREAL LABORATORYCLIA [id number] [place] [address] [place] RBC (Bld) [#/Vol] 2.78 10*6/uL Low 3.90-5.[address] [facility] Comment on above: Order Comment: Speci men Type: BLOOD SPECIMENOrdering Facility: [facility] Address: [address] [place] [address] Performed By: #### 5 7021-8 ####VILLARREAL LABORATORYCLIA [id number] [place] [address] [place] WBC (Bld) [#/Vol] 8.67 10*3/uL Normal 3.70-11.[address] [facility] Comment on above: Order Comment: Speci men Type: BLOOD SPECIMENOrdering Facility: [facility] Address: [address] [place] [address] Performed By: #### 5 7021-8 ####VILLARREAL LABORATORYCLIA [id number] [place] [address] [place] CNDSon 12-12-2024 CNDS [facility] CONSULT PROGon 12-12-2024 CONSULT PROG [facility] OPER[facility] NOon 12-12-2024 OPERATIVE [facility] Basic metabolic 2000 panelon 12-11-2024 Anion gap [Moles/Vol] 11 mmol/L Normal 8-15 [facility] Comment on above: Order Comment: Speci men Type: BLOOD SPECIMENOrdering Facility: [facility] Address: [address] [place] [address] Performed By: #### 2 4321-2 ####VILLARREAL LABORATORYCLIA [id number] [place] [address] [place] Calcium [Mass/Vol] 9.1 mg/dL Normal 8.5-10.2 [facility] Comment on above: Order Comment: Speci men Type: BLOOD SPECIMENOrdering Facility: [facility] Address: [address] [place] [address] Performed By: #### 2 4321-2 ####VILLARREAL LABORATORYCLIA [id number] [place] [address] [place] Chloride [Moles/Vol] 102 mmol/L Normal 98-107 [facility] Comment on above: Order Comment: Speci men Type: BLOOD SPECIMENOrdering Facility: [facility] Address: [address] [place] [address] Performed By: #### 2 4321-2 ####VILLARREAL LABORATORYCLIA [id number] [place] [address] [place] CO2 [Moles/Vol] 25 mmol/L Normal 22-30 [facility] Comment on above: Order Comment: Fan meade Type: BLOOD SPECIMENOrdering Facility: [facility] Address: [address] [place] [address] Performed By: #### 2 4321-2 ####VILLARREAL LABORATORYCLIA [id number] [address] STATES OF [facility] Creatinine [Mass/Vol] 0.80 mg/dL Normal 0.58-0.96 [facility] Comment on above: Order Comment: Fan meade Type: BLOOD SPECIMENOrdering Facility: [facility] Address: [address] [place] [address] Performed By: #### 2 4321-2 ####GREE[facility] LABORATORYCLIA [id number] [address] Creatinine and Glomerular filtration rate.predicted panel (S/P/Bld) 71 mL/min/1.73m??? Normal >=60 [facility] Comment on above: Order Comment: Fan meade Type: BLOOD SPECIMENOrdering Facility: [facility] Address: [address] [place] [address] Result Comment: Hilda mated Glomerular Filtration Rate [...] Performed By: #### 2 4321-2 ####VILLARREAL LABORATORYCLIA [id number] [address] STATES OF [facility] Glucose [Mass/Vol] 203 mg/dL High 74-99 [facility] Comment on above: Order Comment: Fan halina Type: BLOOD SPECIMENOrdering Facility: [facility] Address: [address] [place] [address] Result Comment: The [place] Diabetes [employer] (ADA) provides guidance for cutoff [...] Standards of Medical Care in Diabetes 2016, [place] [employer]. Diabetes Care. 2016.39(Suppl 1). Performed By: #### 2 4321-2 ####VILLARREAL LABORATORYCLIA [id number] [place] [address] [place] Potassium [Moles/Vol] 3.8 mmol/L Normal 3.7-5.1 [facility] Comment on above: Order Comment: Fan meade Type: BLOOD SPECIMENOrdering Facility: [facility] Address: [address] [place] [address] Performed By: #### 2 4321-2 ####VILLARREAL LABORATORYCLIA [id number] [address] [place] Sodium [Moles/Vol] 138 mmol/L Normal 136-144 [facility] Comment on above: Order Comment: Fan meade Type: BLOOD SPECIMENOrdering Facility: [facility] Address: [address] [place] [address] Performed By: #### 2 4321-2 ####VILLARREAL LABORATORYCLIA [id number] [address] [place] Urea nitrogen [Mass/Vol] 33 mg/dL High 7-21 [facility] Comment on above: Order Comment: aFn meade Type: BLOOD SPECIMENOrdering Facility: [facility] Address: [address] [place] [address] Performed By: #### 2 4321-2 ####VILLARREAL LABORATORYCLIA [id number] [place] [id number] [place] CASE MANAGEMon 12-11-2024 CASE MANAGEM Normal [facility] CBC W Auto Differential pane l (Bld)on 12-11-2024 Basophils (Bld) [#/Vol] 10*3/uL Normal <0.11 [facility] Comment on above: Order Comment: Speci men Type: BLOOD SPECIMENOrdering Facility: [facility] Address: [address] [place] [address] Performed By: #### 5 7021-8 ####VILLARREAL LABORATORYCLIA [id number] [place] [address] [place] Basophils/100 WBC (Bld) 0.2 % Normal [facility] Comment on above: Order Comment: Speci men Type: BLOOD SPECIMENOrdering Facility: [facility] Address: [address] [place] [address] Performed By: #### 5 7021-8 ####VILLARREAL LABORATORYCLIA [id number] [place] [address] [place] Differential cell count method Nom (Bld) Auto Normal [facility] Comment on above: Order Comment: Speci men Type: BLOOD SPECIMENOrdering Facility: [facility] Address: [address] [place] [address] Performed By: #### 5 7021-8 ####VILLARREAL LABORATORYCLIA [id number] [place] [address] [place] Eosinophils (Bld) [#/Vol] 0.11 10*3/uL Normal <0.46 [facility] Comment on above: Order Comment: Speci men Type: BLOOD SPECIMENOrdering Facility: [facility] Address: [address] [place] [address] Performed By: #### 5 7021-8 ####VILLARREAL LABORATORYCLIA [id number] [address] [place] Eosinophils/100 WBC (Bld) 1.1 % Normal [facility] Comment on above: Order Comment: Speci men Type: BLOOD SPECIMENOrdering Facility: [facility] Address: [address] [place] [address] Performed By: #### 5 7021-8 ####VILLARREAL LABORATORYCLIA [id number] [place] [address] [place] Erythrocyte distribution width (RBC) [Ratio] 16.8 % High 11.5-15.0 [facility] Comment on above: Order Comment: Speci men Type: BLOOD SPECIMENOrdering Facility: [facility] Address: [address] [place], [place] [address], [place] [address] Performed By: #### 5 7021-8 ####VILLARREAL LABORATORYCLIA [id number] [place] [address] [place] Hematocrit (Bld) [Volume fraction] 25.2 % Low 36.0-46.0 [facility] Comment on above: Order Comment: Speci men Type: BLOOD SPECIMENOrdering Facility: [facility] Address: [address] [place] [address] Performed By: #### 5 7021-8 ####VILLARREAL LABORATORYCLIA [id number] [place] [address] [place] Hemoglobin (Bld) [Mass/Vol] 8.4 g/dL Low 11.5-15.5 [facility] Comment on above: Order Comment: Speci men Type: BLOOD SPECIMENOrdering Facility: [facility] Address: [address] [place] [address] Performed By: #### 5 7021-8 ####VILLARREAL LABORATORYCLIA [id number] [place] [address] [place] Immature granulocytes (Bld) [#/Vol] 0.16 10*3/uL High <0.10 [facility] Comment on above: Order Comment: Speci men Type: BLOOD SPECIMENOrdering Facility: [facility] Address: [address] [place] [address] [place] [address] Performed By: #### 5 7021-8 ####VILLARRE[facility] LABORATORYCLIA [id number] [place] [address] [place] Immature granulocytes/100 WBC (Bld) 1.5 % Normal [facility] Comment on above: Order Comment: Speci men Type: BLOOD SPECIMENOrdering Facility: [facility] Address: [address] [place] [address] [place] [address] Performed By: #### 5 7021-8 ####VILLARREAL LABORATORYCLIA [id number] [place] [address] [place] Lymphocytes (Bld) [#/Vol] 1.13 10*3/uL Normal 1.00-4.00 [facility] Comment on above: Order Comment: Speci men Type: BLOOD SPECIMENOrdering Facility: [facility] Address: [address] [place] [address] Performed By: #### 5 7021-8 ####VILLARREAL LABORATORYCLIA [id number] [address] Lymphocytes/100 WBC (Bld) 10.9 % Normal [facility] Comment on above: Order Comment: Speci men Type: BLOOD SPECIMENOrdering Facility: [facility] Address: [address] [place] [address] Performed By: #### 5 7021-8 ####VILLARREAL LABORATORYCLIA [id number] [address] MCH (RBC) [Entitic mass] 28.7 pg Normal 26.0-34.0 [facility] Comment on above: Order Comment: Speci men Type: BLOOD SPECIMENOrdering Facility: [facility] Address: [address] [place] [address] Performed By: #### 5 7021-8 ####VILLARREAL LABORATORYCLIA [id number] [address] [place] MCHC (RBC) [Mass/Vol] 33.3 g/dL Normal 30.5-36.0 [facility] Comment on above: Order Comment: Speci men Type: BLOOD SPECIMENOrdering Facility: [facility] Address: [address] [place] [address] Performed By: #### 5 7021-8 ####VILLARREAL LABORATORYCLIA [id number] [address] MCV (RBC) [Entitic vol] 86.0 fL Normal 80.0-100.0 [facility] Comment on above: Order Comment: Speci men Type: BLOOD SPECIMENOrdering Facility: [facility] Address: [address] [place] [address] Performed By: #### 5 7021-8 ####VILLARREAL LABORATORYCLIA [id number] [address] Monocytes (Bld) [#/Vol] 0.64 10*3/uL Normal <0.87 [facility] Comment on above: Order Comment: Speci men Type: BLOOD SPECIMENOrdering Facility: [facility] Address: [address] [place] [address] Performed By: #### 5 7021-8 ####VILLARREAL LABORATORYCLIA [id number] [address] [place] Monocytes/100 WBC (Bld) 6.2 % Normal [facility] Comment on above: Order Comment: Speci men Type: BLOOD SPECIMENOrdering Facility: [facility] Address: [address] [place] [address] Performed By: #### 5 7021-8 ####VILLARREAL LABORATORYCLIA [id number] [place] [address] [place] Neutrophils (Bld) [#/Vol] 8.31 10*3/uL High 1.45-7.50 [facility] Comment on above: Order Comment: Speci men Type: BLOOD SPECIMENOrdering Facility: [facility] Address: [address] [place] [address] Performed By: #### 5 7021-8 ####VILLARREAL LABORATORYCLIA [id number] [place] [address] [place] Neutrophils/100 WBC (Bld) 80.1 % Normal [facility] Comment on above: Order Comment: Speci men Type: BLOOD SPECIMENOrdering Facility: [facility] Address: [address] [place] [address] Performed By: #### 5 7021-8 ####VILLARREAL LABORATORYCLIA [id number] [place] [address] [place] Nucleated RBC (Bld) [#/Vol] 10*3/uL Normal <0.01 [facility] Comment on above: Order Comment: Speci men Type: BLOOD SPECIMENOrdering Facility: [facility] Address: [address] [place] [address] Performed By: #### 5 7021-8 ####VILLARREAL LABORATORYCLIA [id number] [place] [address] [place] Nucleated RBC/100 WBC (Bld) [Ratio] 0.0 /100 WBC Normal [facility] Comment on above: Order Comment: Speci men Type: BLOOD SPECIMENOrdering Facility: [facility] Address: [address] [place] [address] Performed By: #### 5 7021-8 ####VILLARREAL LABORATORYCLIA [id number] [place] [address] [place] Platelet mean volume (Bld) [Entitic vol] 7.9 fL Low 9.0-12.7 [facility] Comment on above: Order Comment: Speci men Type: BLOOD SPECIMENOrdering Facility: [facility] Address: [address] [place] [address] Performed By: #### 5 7021-8 ####VILLARREAL LABORATORYCLIA [id number] [place] [address] [place] Platelets (Bld) [#/Vol] 600 10*3/uL High 150-400 [facility] Comment on above: Order Comment: Speci men Type: BLOOD SPECIMENOrdering Facility: [facility] Address: [facility] [place] [address] Performed By: #### 5 7021-8 ####VILLARREAL LABORATORYCLIA [id number] [place] [address] [place] RBC (Bld) [#/Vol] 2.93 10*6/uL Low 3.90-5.[address] [facility] Comment on above: Order Comment: Speci men Type: BLOOD SPECIMENOrdering Facility: [facility] Address: [address] [place] [address] Performed By: #### 5 7021-8 ####VILLARREAL LABORATORYCLIA [id number] [place] [id number] [place] WBC (Bld) [#/Vol] 10.37 10*3/uL Normal 3.70-11.00 [facility] Comment on above: Order Comment: Speci men Type: BLOOD SPECIMENOrdering Facility: [facility] Address: [facility] [place] [address] Performed By: #### 5 7021-8 ####VILLARREAL LABORATORYCLIA [id number] [place] [id number] [facility] [place] CONSULT PROGon 12-11-2024 CONSULT PROG Normal [facility] CONSULT PROG Normal [facility] CONSULT PROG Normal [facility] CONSULT PROG Normal [facility] CONSULT PROG Normal [facility] NUTRITIONon 12-11-2024 NUTRITION Normal [facility] ANES POSTPROC EVALon 025 ANES POSTPROC EVAL Normal [facility] ANES PRE-OPon 12-10-2024 ANES PRE-OP [facility] BRIEF OP NOTon 12-10-2024 BRIEF OP NOT Normal [facility] Basic metabolic 2000 panelon 12-10-2024 Anion gap [Moles/Vol] 10 mmol/L Normal 8-15 [facility] Comment on above: Order Comment: Speci men Type: BLOOD SPECIMENOrdering Facility: [facility] Address: [address] [place] [address] Performed By: #### 2 4321-2 ####VILLARREAL LABORATORYCLIA [id number] [place] [address] [place] Calcium [Mass/Vol] 8.9 mg/dL Normal 8.5-10.2 [facility] Comment on above: Order Comment: Speci men Type: BLOOD SPECIMENOrdering Facility: [facility] Address: [address] [place] [address] Performed By: #### 2 4321-2 ####VILLARREAL LABORATORYCLIA [id number] [place] [address] [place] Chloride [Moles/Vol] 102 mmol/L Normal 98-107 [facility] Comment on above: Order Comment: Speci men Type: BLOOD SPECIMENOrdering Facility: [facility] Address: [address] [place] [address] Performed By: #### 2 4321-2 ####VILLARREAL LABORATORYCLIA [id number] [place] [address] [place] CO2 [Moles/Vol] 26 mmol/L Normal 22-30 [facility] Comment on above: Order Comment: Speci men Type: BLOOD SPECIMENOrdering Facility: [facility] Address: [address] [place] [address] Performed By: #### 2 4321-2 ####VILLARREAL LABORATORYCLIA [id number] [address] STATES OF [facility] Creatinine [Mass/Vol] 0.68 mg/dL Normal 0.58-0.96 [facility] Comment on above: Order Comment: Fan meade Type: BLOOD SPECIMENOrdering Facility: [facility] Address: [address] [place] [address] Performed By: #### 2 4321-2 ####[facility] LABORATORYCLIA [id number] [address] Creatinine and Glomerular filtration rate.predicted panel (S/P/Bld) 84 mL/min/1.73m??? Normal >=60 [facility] Comment on above: Order Comment: Fan meade Type: BLOOD SPECIMENOrdering Facility: [facility] Address: [address] [place] [address] Result Comment: Hilda mated Glomerular Filtration Rate [...] actual GFR. Performed By: #### 2 4321-2 ####[facility] LABORATORYCLIA [id number] [address] STATES OF [facility] Glucose [Mass/Vol] 79 mg/dL Normal 74-99 [facility] Comment on above: Order Comment: Fan meade Type: BLOOD SPECIMENOrdering Facility: [facility] Address: [address] [place] [address] Result Comment: The [place] [employer] (ADA) provides guidance for cutoff [...] Standards of Medical Care in Diabetes 2016, [place] [employer]. Diabetes Care. 2016.39(Suppl 1). Performed By: #### 2 4321-2 ####VILLARREAL LABORATORYCLIA [id number] [place] [address] [place] Potassium [Moles/Vol] 4.1 mmol/L Normal 3.7-5.1 [facility] Comment on above: Order Comment: Speci men Type: BLOOD SPECIMENOrdering Facility: [facility] Address: [address] [place] [address] Performed By: #### 2 4321-2 ####VILLARREAL LABORATORYCLIA [id number] [place] [address] [place] Sodium [Moles/Vol] 138 mmol/L Normal 136-144 [facility] Comment on above: Order Comment: Fan meade Type: BLOOD SPECIMENOrdering Facility: [facility] Address: [address] [place] [address] Performed By: #### 2 4321-2 ####VILLARREAL LABORATORYCLIA [id number] [place] [address] [place] Urea nitrogen [Mass/Vol] 45 mg/dL High 7-21 [facility] Comment on above: Order Comment: Fan meade Type: BLOOD SPECIMENOrdering Facility: [facility] Address: [address] [place] [address] Performed By: #### 2 4321-2 ####VILLARREAL LABORATORYCLIA [id number] [address] [place] CASE MANAGEMon 12-10-2024 CASE MANAGEM Normal [facility] CBC W Auto Differential pane l (Bld)on 12-10-2024 Basophils (Bld) [#/Vol] 10*3/uL Normal <0.11 [facility] Comment on above: Order Comment: Fan men Type: BLOOD SPECIMENOrdering Facility: [facility] Address: [address] [place] [address] Performed By: #### 5 7021-8 ####VILLARREAL LABORATORYCLIA [id number] [address] [place] Basophils/100 WBC (Bld) 0.2 % Normal [facility] Comment on above: Order Comment: Speci men Type: BLOOD SPECIMENOrdering Facility: [facility] Address: [address] [place] [address] Performed By: #### 5 7021-8 ####VILLARREAL LABORATORYCLIA [id number] [place] [address] [place] Differential cell count method Nom (Bld) Auto Normal [facility] Comment on above: Order Comment: Speci men Type: BLOOD SPECIMENOrdering Facility: [facility] Address: [address] [place] [address] Performed By: #### 5 7021-8 ####VILLARREAL LABORATORYCLIA [id number] [place] [address] [place] Eosinophils (Bld) [#/Vol] 0.07 10*3/uL Normal <0.46 [facility] Comment on above: Order Comment: Speci men Type: BLOOD SPECIMENOrdering Facility: [facility] Address: [address] [place] [address] Performed By: #### 5 7021-8 ####VILLARREAL LABORATORYCLIA [id number] [place] [address] [place] Eosinophils/100 WBC (Bld) 0.6 % Normal [facility] Comment on above: Order Comment: Speci men Type: BLOOD SPECIMENOrdering Facility: [facility] Address: [address] [place] [address] Performed By: #### 5 7021-8 ####VILLARREAL LABORATORYCLIA [id number] [place] [address] [place] Erythrocyte distribution width (RBC) [Ratio] 16.6 % High 11.5-15.0 [facility] Comment on above: Order Comment: Speci men Type: BLOOD SPECIMENOrdering Facility: [facility] Address: [address] [place] [address] Performed By: #### 5 7021-8 ####VILLARREAL LABORATORYCLIA [id number] [place] [address] [place] Hematocrit (Bld) [Volume fraction] 23.9 % Low 36.0-46.0 [facility] Comment on above: Order Comment: Speci men Type: BLOOD SPECIMENOrdering Facility: [facility] Address: [address] [place] [address] Performed By: #### 5 7021-8 ####VILLARREAL LABORATORYCLIA [id number] [place] [address] [place] Hemoglobin (Bld) [Mass/Vol] 7.8 g/dL Low 11.5-15.5 [facility] Comment on above: Order Comment: Speci men Type: BLOOD SPECIMENOrdering Facility: [facility] Address: [address] [place] [address] Performed By: #### 5 7021-8 ####VILLARREAL LABORATORYCLIA [id number] [place] [address] [place] Immature granulocytes (Bld) [#/Vol] 0.16 10*3/uL High <0.10 [facility] Comment on above: Order Comment: Speci men Type: BLOOD SPECIMENOrdering Facility: [facility] Address: [address] [place] [address] Performed By: #### 5 7021-8 ####VILLARREAL LABORATORYCLIA [id number] [address] [place] Immature granulocytes/100 WBC (Bld) 1.4 % Normal [facility] Comment on above: Order Comment: Speci men Type: BLOOD SPECIMENOrdering Facility: [facility] Address: [address] [place] [address] Performed By: #### 5 7021-8 ####VILLARRE[facility] LABORATORYCLIA [id number] [place] [address] [place] Lymphocytes (Bld) [#/Vol] 1.18 10*3/uL Normal 1.00-4.00 [facility] Comment on above: Order Comment: Speci men Type: BLOOD SPECIMENOrdering Facility: [facility] Address: [address] [place] [address] Performed By: #### 5 7021-8 ####VILLARREAL LABORATORYCLIA [id number] [address] [place] Lymphocytes/100 WBC (Bld) 10.3 % Normal [facility] Comment on above: Order Comment: Speci men Type: BLOOD SPECIMENOrdering Facility: [facility] Address: [address] [place] [address] Performed By: #### 5 7021-8 ####VILLARRE[facility] LABORATORYCLIA [id number] [address] MCH (RBC) [Entitic mass] 28.9 pg Normal 26.0-34.0 [facility] Comment on above: Order Comment: Speci men Type: BLOOD SPECIMENOrdering Facility: [facility] Address: [address] [place] [address] Performed By: #### 5 7021-8 ####VILLARRE[facility] LABORATORYCLIA [id number] [address] MCHC (RBC) [Mass/Vol] 32.6 g/dL Normal 30.5-36.0 [facility] Comment on above: Order Comment: Speci men Type: BLOOD SPECIMENOrdering Facility: [facility] Address: [address] [place] [address] Performed By: #### 5 7021-8 ####VILL[facility] LABORATORYCLIA [id number] [address] MCV (RBC) [Entitic vol] 88.5 fL Normal 80.0-100.0 [facility] Comment on above: Order Comment: Speci men Type: BLOOD SPECIMENOrdering Facility: [facility] Address: [address] [place] [address] Performed By: #### 5 7021-8 ####VILLAR[facility] LABORATORYCLIA [id number] [address] Monocytes (Bld) [#/Vol] 0.70 10*3/uL Normal <0.87 [facility] Comment on above: Order Comment: Speci men Type: BLOOD SPECIMENOrdering Facility: [facility] Address: [address] [place] [address] Performed By: #### 5 7021-8 ####VILLARREAL LABORATORYCLIA [id number] [place] [address] [place] Monocytes/100 WBC (Bld) 6.1 % Normal [facility] Comment on above: Order Comment: Speci men Type: BLOOD SPECIMENOrdering Facility: [facility] Address: [address] [place] [address] Performed By: #### 5 7021-8 ####VILLARRE[facility] LABORATORYCLIA [id number] [place] [address] [place] Neutrophils (Bld) [#/Vol] 9.32 10*3/uL High 1.45-7.50 [facility] Comment on above: Order Comment: Speci men Type: BLOOD SPECIMENOrdering Facility: [facility] Address: [address] [place] [address] Performed By: #### 5 7021-8 ####VILLARRE[facility] LABORATORYCLIA [id number] [address] [place] Neutrophils/100 WBC (Bld) 81.4 % Normal [facility] Comment on above: Order Comment: Speci men Type: BLOOD SPECIMENOrdering Facility: [facility] Address: [address] [place] [address] Performed By: #### 5 7021-8 ####VILLARRE[facility] LABORATORYCLIA [id number] [place] [address] [place] Nucleated RBC (Bld) [#/Vol] 10*3/uL Normal <0.01 [facility] Comment on above: Order Comment: Speci men Type: BLOOD SPECIMENOrdering Facility: [facility] Address: [address] [place] [address] Performed By: #### 5 7021-8 ####VILLARRE[facility] LABORATORYCLIA [id number] [place] [address] [place] Nucleated RBC/100 WBC (Bld) [Ratio] 0.0 /100 WBC Normal [facility] Comment on above: Order Comment: Speci men Type: BLOOD SPECIMENOrdering Facility: [facility] Address: [address] [place] [address] Performed By: #### 5 7021-8 ####VILL[facility]RE[facility] LABORATORYCLIA [id number] [place] [address] [place] Platelet mean volume (Bld) [Entitic vol] 8.1 fL Low 9.0-12.7 [facility] Comment on above: Order Comment: Speci men Type: BLOOD SPECIMENOrdering Facility: [facility] Address: [address] [place] [address] Performed By: #### 5 7021-8 ####V[facility] LABORATORYCLIA [id number] [place] [address] [place] Platelets (Bld) [#/Vol] 579 10*3/uL High 150-400 [facility] Comment on above: Order Comment: Speci men Type: BLOOD SPECIMENOrdering Facility: [facility] Address: [address] [place] [address] Performed By: #### 5 7021-8 ####V[facility] LABORATORYCLIA [id number] [place] [address] [place] RBC (Bld) [#/Vol] 2.70 10*6/uL Low 3.90-5.[address] [facility] Comment on above: Order Comment: Speci men Type: BLOOD SPECIMENOrdering Facility: [facility] Address: [address] [place] [address] Performed By: #### 5 7021-8 ####V[facility] LABORATORYCLIA [id number] [address] [place] WBC (Bld) [#/Vol] 11.45 10*3/uL High 3.70-11.00 [facility] Comment on above: Order Comment: Speci men Type: BLOOD SPECIMENOrdering Facility: [facility] Address: [address] [place] [address] Performed By: #### 5 7021-8 ####V[facility] LABORATORYCLIA [id number] [address] [place] CONSULT PROGon 12-10-2024 CONSULT PROG [facility] CONSULT PROG [facility] CONSULT PROG [facility] CONSULT PROG [facility] OPERATIVE NOon 12-10-2024 OPERATIVE NO [facility] SURGICAL PATHOLOGYon 025 CASE REPORT [facility] Comment on above: Order Comment: Speci men Type: TISSUE SPECIMENOrdering Facility: [facility] Address: [address] [place] [address] Result Comment: Surg ica Pathology Report Case: [id number] Provider: José Miguel Morgan MD Collected: 12/10/2024 07:37 AMOrdering Location: [facility] Endoscopy Received: 12/10/2024 08:27 AMPathologist: Jesús Jeff MDSpecimens: A) - Small Bowel, Duodenum, Biopsy, sprue B) - Stomach, Biopsy, hp C) - Esophagus, Biopsy, at 30 cm r/o krystina Performed By: #### S ####[facility] LABCLIA [id number] [address] LABCLIA [id number] [address] FINAL DIAGNOSIS Normal [facility] Comment on above: Order Comment: Speci men Type: TISSUE SPECIMENOrdering Facility: [facility] Address: [address] [place] [address] Result Comment: A. D uodenum, biopsy:- Focal gastric surface metaplasia associated with mild regenerative epithelial changes.- No other significant pathologic alteration.B. Stomach, biopsy:- Reactive gastropathy.- No morphologic evidence of Helicobacter pylori.C. Esophagus at 30 cm, biopsy:- Fragments of of unremarkable squamous mucosa.- No evidence of Krystina.JRG/mm/12/11/2024 Performed By: #### S ####[facility] LABCLIA [id number] [place] [id number] [facility] LABCLIA [id number] [address] FINAL PERFORMING LAB Normal [facility] Comment on above: Order Comment: Speci men Type: TISSUE SPECIMENOrdering Facility: [facility] Address: [address] [place] [address] Result Comment: Diag nostic interpretation performed at: [facility], [address] [place] [address] CLIA# [id number] Director: Manfred Diallo MD Performed By: #### S ####[facility] LABCLIA [id number] [place] [id number] [facility] LABCLIA [id number] [address] [place] GROSS DESCRIPTION [facility] Comment on above: Order Comment: Speci men Type: TISSUE SPECIMENOrdering Facility: [facility] Address: [address] [place] [address] Result Comment: A. S mall Bowel, Duodenum, [...] submitted in one cassette.Gross examination performed at [facility], [address] [place], [place] [address]AMS December 10, 2024 10:50 AM Performed By: #### S ####[facility] LABCLIA [id number] [place] [id number] [facility] LABCLIA [id number] [address] [place] THERAPY NTon 12-10-2024 THERAPY NT [facility] THERAPY NT [facility] Basic metabolic 2000 panelon 12-09-2024 Anion gap [Moles/Vol] 10 mmol/L Normal 8-15 [facility] Comment on above: Order Comment: Speci men Type: BLOOD SPECIMENOrdering Facility: [facility] Address: [address] [place] [address] Performed By: #### 2 4321-2, 35272-9, [id number] ####[facility] LABORATORYCLIA [id number] [place] [address] [place] Calcium [Mass/Vol] 9.3 mg/dL Normal 8.5-10.2 [facility] Comment on above: Order Comment: Speci men Type: BLOOD SPECIMENOrdering Facility: [facility] [facility] Address: [address] [place] [address] Performed By: #### 2 4321-2, 83777-2, 2276-02 ####VILLARRE[facility] LABORATORYCLIA [id number] [place] [address] [place] Chloride [Moles/Vol] 100 mmol/L Normal 98-107 [facility] Comment on above: Order Comment: Speci men Type: BLOOD SPECIMENOrdering Facility: [facility] Address: [address] [place] [address] Performed By: #### 2 4321-2, 76517-9, 2276-02 ####VILLARREAL LABORATORYCLIA [id number] [place] [address] [place] CO2 [Moles/Vol] 26 mmol/L Normal 22-30 [facility] Comment on above: Order Comment: Speci men Type: BLOOD SPECIMENOrdering Facility: [facility] Address: [address] [place] [address] Performed By: #### 2 4321-2, 90357-2, 2276-02 ####VILLARREAL LABORATORYCLIA [id number] [place] [address] [place] Creatinine [Mass/Vol] 0.80 mg/dL Normal 0.58-0.96 [facility] Comment on above: Order Comment: Speci men Type: BLOOD SPECIMENOrdering Facility: [facility] Address: [address] [place] [address] Performed By: #### 2 4321-2, 75682-6, 2275-4 ####VILLARREAL LABORATORYCLIA [id number] [place] [address] [place] Creatinine and Glomerular filtration rate.predicted panel (S/P/Bld) 71 mL/min/1.73m??? Normal >=60 [facility] Comment on above: Order Comment: Fan meade Type: BLOOD SPECIMENOrdering Facility: [facility] Address: [address] [place] [address] Result Comment: Hilda mated Glomerular Filtration Rate [...] actual GFR. Performed By: #### 2 4321-2, 13841-9, 2276-4 ####G[facility] LABORATORYCLIA [id number] [place] [id number] [place] Glucose [Mass/Vol] 151 mg/dL High 74-99 [facility] Comment on above: Order Comment: Fan [place]ade Type: BLOOD SPECIMENOrdering Facility: [facility] Address: [address] [place] [address] Result Comment: The [place] [employer] (ADA) provides guidance for cutoff [...] Standards of Medical Care in Diabetes 2016, [place] [employer]. Diabetes Care. 2016.39(Suppl 1). Performed By: #### 2 4321-2, 97589-2, 2276-4 ####GREELEY LABORATORYCLIA [id number] [place] [address] [place] Potassium [Moles/Vol] 4.5 mmol/L Normal 3.7-5.1 [facility] Comment on above: Order Comment: Fan [place]ade Type: BLOOD SPECIMENOrdering Facility: [facility] Address: [address] [place] [address] Performed By: #### 2 4321-2, 03877-5, 6-4 ####VILLARREAL LABORATORYCLIA [id number] [place] [address] [place] Sodium [Moles/Vol] 136 mmol/L Normal 136-144 [facility] Comment on above: Order Comment: Speci men Type: BLOOD SPECIMENOrdering Facility: [facility] Address: [address] [place] [address] Performed By: #### 2 4321-2, 83192-1, 6-4 ####VILLARREAL LABORATORYCLIA [id number] [place] [address] [place] Urea nitrogen [Mass/Vol] 43 mg/dL High 7-21 [facility] Comment on above: Order Comment: Speci men Type: BLOOD SPECIMENOrdering Facility: [facility] Address: [address] [place] [address] Performed By: #### 2 4321-2, 94121-2, 2275-4 ####VILLARREAL LABORATORYCLIA [id number] [place] [address] [place] CBC W Auto Differential pane l (Bld)on 12-09-2024 Basophils (Bld) [#/Vol] 10*3/uL Normal <0.11 [facility] Comment on above: Order Comment: Speci men Type: BLOOD SPECIMENOrdering Facility: [facility] Address: [address] [place] [address] Performed By: #### 5 7021-8 ####VILLARREAL LABORATORYCLIA [id number] [address] [place] Basophils/100 WBC (Bld) 0.1 % Normal [facility] Comment on above: Order Comment: Speci men Type: BLOOD SPECIMENOrdering Facility: [facility] Address: [address] [place] [address] Performed By: #### 5 7021-8 ####VILLARREAL LABORATORYCLIA [id number] [address] Differential cell count method Nom (Bld) Auto Normal [facility] Comment on above: Order Comment: Speci men Type: BLOOD SPECIMENOrdering Facility: [facility] Address: [address] [place] [address] Performed By: #### 5 7021-8 ####VILLARREAL LABORATORYCLIA [id number] [address] Eosinophils (Bld) [#/Vol] 0.15 10*3/uL Normal <0.46 [facility] Comment on above: Order Comment: Speci men Type: BLOOD SPECIMENOrdering Facility: [facility] Address: [address] [place] [address] Performed By: #### 5 7021-8 ####VILLARREAL LABORATORYCLIA [id number] [address] Eosinophils/100 WBC (Bld) 1.4 % Normal [facility] Comment on above: Order Comment: Speci men Type: BLOOD SPECIMENOrdering Facility: [facility] Address: [address] [place] [address] Performed By: #### 5 7021-8 ####VILLARREAL LABORATORYCLIA [id number] [address] Erythrocyte distribution width (RBC) [Ratio] 16.4 % High 11.5-15.0 [facility] Comment on above: Order Comment: Speci men Type: BLOOD SPECIMENOrdering Facility: [facility] Address: [address] [place] [address] Performed By: #### 5 7021-8 ####VILLARREAL LABORATORYCLIA [id number] [address] Hematocrit (Bld) [Volume fraction] 24.0 % Low 36.0-46.0 [facility] Comment on above: Order Comment: Speci men Type: BLOOD SPECIMENOrdering Facility: [facility] Address: [address] [place] [address] Performed By: #### 5 7021-8 ####VILLARREAL LABORATORYCLIA [id number] [address] [place] Hemoglobin (Bld) [Mass/Vol] 7.6 g/dL Low 11.5-15.5 [facility] Comment on above: Order Comment: Speci men Type: BLOOD SPECIMENOrdering Facility: [facility] Address: [address] [place] [address] Performed By: #### 5 7021-8 ####VILLARREAL LABORATORYCLIA [id number] [address] [place] Immature granulocytes (Bld) [#/Vol] 0.23 10*3/uL High <0.10 [facility] Comment on above: Order Comment: Speci men Type: BLOOD SPECIMENOrdering Facility: [facility] Address: [address] [place] [address] Performed By: #### 5 7021-8 ####VILLARREAL LABORATORYCLIA [id number] [address] Immature granulocytes/100 WBC (Bld) 2.1 % Normal [facility] Comment on above: Order Comment: Speci men Type: BLOOD SPECIMENOrdering Facility: [facility] Address: [address] [place] [address] Performed By: #### 5 7021-8 ####VILLARREAL LABORATORYCLIA [id number] [place] [address] [place] Lymphocytes (Bld) [#/Vol] 1.43 10*3/uL Normal 1.00-4.00 [facility] Comment on above: Order Comment: Speci men Type: BLOOD SPECIMENOrdering Facility: [facility] Address: [address] [place] [address] Performed By: #### 5 7021-8 ####VILLARREAL LABORATORYCLIA [id number] [address] [place] Lymphocytes/100 WBC (Bld) 13.3 % Normal [facility] Comment on above: Order Comment: Speci men Type: BLOOD SPECIMENOrdering Facility: [facility] Address: [address] [place] [address] Performed By: #### 5 7021-8 ####VILLARREAL LABORATORYCLIA [id number] [place] [address] [place] MCH (RBC) [Entitic mass] 27.9 pg Normal 26.0-34.0 [facility] Comment on above: Order Comment: Speci men Type: BLOOD SPECIMENOrdering Facility: [facility] Address: [address] [place] [address] Performed By: #### 5 7021-8 ####VILLARREAL LABORATORYCLIA [id number] [address] [place] MCHC (RBC) [Mass/Vol] 31.7 g/dL Normal 30.5-36.0 [facility] Comment on above: Order Comment: Speci men Type: BLOOD SPECIMENOrdering Facility: [facility] Address: [address] [place] [address] Performed By: #### 5 7021-8 ####VILLARREAL LABORATORYCLIA [id number] [address] [place] [employer] [facility] MCV (RBC) [Entitic vol] 88.2 fL Normal 80.0-100.0 [facility] Comment on above: Order Comment: Speci men Type: BLOOD SPECIMENOrdering Facility: [facility] Address: [address] [place] [address] Performed By: #### 5 7021-8 ####VILLARREAL LABORATORYCLIA [id number] [place] [address] [place] Monocytes (Bld) [#/Vol] 0.62 10*3/uL Normal <0.87 [facility] Comment on above: Order Comment: Speci men Type: BLOOD SPECIMENOrdering Facility: [facility] Address: [address] [place] [address] Performed By: #### 5 7021-8 ####VILLARREAL LABORATORYCLIA [id number] [address] Monocytes/100 WBC (Bld) 5.8 % Normal [facility] Comment on above: Order Comment: Speci men Type: BLOOD SPECIMENOrdering Facility: [facility] Address: [address] [place] [address] Performed By: #### 5 7021-8 ####VILLARREAL LABORATORYCLIA [id number] [address] [place] Neutrophils (Bld) [#/Vol] 8.31 10*3/uL High 1.45-7.50 [facility] Comment on above: Order Comment: Speci men Type: BLOOD SPECIMENOrdering Facility: [facility] Address: [address] [place] [address] Performed By: #### 5 7021-8 ####VILLARREAL LABORATORYCLIA [id number] [address] [place] Neutrophils/100 WBC (Bld) 77.3 % Normal [facility] Comment on above: Order Comment: Speci men Type: BLOOD SPECIMENOrdering Facility: [facility] Address: [address] [place] [address] Performed By: #### 5 7021-8 ####VILLARREAL LABORATORYCLIA [id number] [place] [address] [place] Nucleated RBC (Bld) [#/Vol] 10*3/uL Normal <0.01 [facility] Comment on above: Order Comment: Speci men Type: BLOOD SPECIMENOrdering Facility: [facility] Address: [address] [place] [address] Performed By: #### 5 7021-8 ####VILLARREAL LABORATORYCLIA [id number] [address] [place] [employer] [facility] Nucleated RBC/100 WBC (Bld) [Ratio] 0.0 /100 WBC Normal [facility] Comment on above: Order Comment: Speci men Type: BLOOD SPECIMENOrdering Facility: [facility] Address: [address] [place] [address] Performed By: #### 5 7021-8 ####VILLARREAL LABORATORYCLIA [id number] [place] [address] [place] Platelet mean volume (Bld) [Entitic vol] 8.3 fL Low 9.0-12.7 [facility] Comment on above: Order Comment: Speci men Type: BLOOD SPECIMENOrdering Facility: [facility] Address: [address] [place] [address] Performed By: #### 5 7021-8 ####VILLARREAL LABORATORYCLIA [id number] [place] [address] [place] Platelets (Bld) [#/Vol] 577 10*3/uL High 150-400 [facility] Comment on above: Order Comment: Fan [place] Type: BLOOD SPECIMENOrdering Facility: [facility] Address: [facility] [place] [address] Performed By: #### 5 7021-8 ####[facility] LABORATORYCLIA [id number] [address] [place] RBC (Bld) [#/Vol] 2.72 10*6/uL Low 3.90-5.[address] [facility] Comment on above: Order Comment: Fan [facility] Type: BLOOD SPECIMENOrdering Facility: [facility] Address: [address] [place] [address] Performed By: #### 5 7021-8 ####[facility] LABORATORYCLIA [id number] [address] WBC (Bld) [#/Vol] 10.75 10*3/uL Normal 3.70-11.00 [facility] Comment on above: Order Comment: Fan [facility] Type: BLOOD SPECIMENOrdering Facility: [facility] Address: [address] [place] [address] Performed By: #### 5 7021-8 ####[facility] LABORATORYCLIA [id number] [address] CELIAC SCREENon 12-09-2024 GLIAD DEAMIDATED IGA QUAL Negative Normal Negative, Test not Indicated [facility] Comment on above: Order Comment: Fan [facility] Type: BLOOD SPECIMENOrdering Facility: [facility] Address: [address] [place] [address] Result Comment: This is used as an aid in diagnosis of celiac disease. Clinical correlation is required.The following results were obtained with an [employer] QUANTA Lite Gliadin IgA JOE Gliadin. Gliadin IgA values obtained with different manufacturers' assay methods may not be used interchangeably. The magnitude of the reported IgA levels cannot be correlated to an endpoint titer. Performed By: #### L [id number] ####[facility] LABCLIA [id number] [facility] [id number] [place] Gliadin peptide IgA Qn (S) 2 Units Normal <20 [facility] Comment on above: Order Comment: Speci men Type: BLOOD SPECIMENOrdering Facility: [facility] Address: [address] [place] [address] Performed By: #### L [id number] ####[facility] LABCLIA [id number] [address] [place] INTERPRETATION No serological evidence of celiac disease, however, if celiac disease is clinically suspected and patient is not on gluten-free diet, histological diagnosis may be considered. HLA testing may help with risk assessment. Normal [facility] Comment on above: Order Comment: Speci men Type: BLOOD SPECIMENOrdering Facility: [facility] Address: [address] [place] [address] Performed By: #### L [id number] ####[facility] LABCLIA [id number] [address] [place] TRANSGLUTAMINASE IGA ABS INTERPRETATION Negative Normal Negative [facility] Comment on above: Order Comment: Speci men Type: BLOOD SPECIMENOrdering Facility: [facility] Address: [address] [place] [address] Result Comment: The following results were obtained with [employer] R h-tTG IgA JOE.???R h-tTG IgA values obtained with different manufacturers' assay methods may not be used interchangeably. The magnitude of the reported IgA levels cannot be corelated to an endpoint???concentration.This is used as an aid in diagnosis of celiac disease. Clinical correlation is required. Performed By: #### L [id number] ####[facility] LABCLIA [id number] [place] [address] [place] tTG IgA Qn (S) <2 Normal <4 [facility] Comment on above: Order Comment: [facility] Type: BLOOD SPECIMENOrdering Facility: [facility] Address: [address] [place] [address] Performed By: #### L [id number] ####[facility] LABCLIA [id number] [address] [place] CONSULT PROGon 12-09-2024 CONSULT PROG Normal [facility] CONSULT PROG Normal [facility] CONSULT PROG Normal [facility] Ferritin SerPl-mCncon 2024 Ferritin [Mass/Vol] 1588.0 ng/mL High 14.7-205.1 [facility] Comment on above: Order Comment: Speci men Type: BLOOD SPECIMENOrdering Facility: [facility] Address: [address] [place] [address] Performed By: #### 2 4321-2, 84635-3, 2276-4 ####[facility] LABORATORYCLIA [id number] [place] [address] [place] Haptoglob SerPl-mCncon 12-09 Haptoglobin [Mass/Vol] 483 mg/dL High 31-238 [facility] Comment on above: Order Comment: Speci men Type: BLOOD SPECIMENOrdering Facility: [facility] Address: [address] [place] [address] Performed By: #### 4 542-7 ####[facility] LABCLIA [id number] [place] [address] [place] IgA SerPl-mCncon 12-09-2024 IgA [Mass/Vol] 166 mg/dL Normal 70-400 [facility] Comment on above: Order Comment: Speci men Type: BLOOD SPECIMENOrdering Facility: [facility] Address: [address] [place] [address] Performed By: #### 2 458-8 ####[facility] LABCLIA [id number] [place] [address] [place] Iron and Iron binding capaci ty panelon 12-09-2024 Iron [Mass/Vol] 91 ug/dL Normal 41-186 [facility] Comment on above: Order Comment: Speci men Type: BLOOD SPECIMENOrdering Facility: [facility] Address: [address] [place] [address] Performed By: #### 2 4321-2, 81417-3, 2276-4 ####VILLAR[facility] LABORATORYCLIA [id number] [address] [place] [employer] [facility] Iron binding capacity [Mass/Vol] 223 ug/dL Low 232-386 [facility] Comment on above: Order Comment: Speci men Type: BLOOD SPECIMENOrdering Facility: [facility] Address: [address] [place] [address] Performed By: #### 2 4321-2, 58019-7, 2276-4 ####[facility] LABORATORYCLIA [id number] [address] [place] [facility] Iron/TIBC [Molar ratio] 40.8 % Normal 15.0-57.0 [facility] Comment on above: Order Comment: Speci men Type: BLOOD SPECIMENOrdering Facility: [facility] Address: [address] [place] [address] Performed By: #### 2 4321-2, 63263-5, 2276-4 ####[facility] LABORATORYCLIA [id number] [address] [place] CBC W Auto Differential pane l (Bld)on 12-08-2024 Basophils (Bld) [#/Vol] 0.03 10*3/uL Normal <0.11 [facility] Comment on above: Order Comment: Speci men Type: BLOOD SPECIMENOrdering Facility: [facility] Address: [address] [place] [address] Performed By: #### 5 7021-8 ####VILLARREAL LABORATORYCLIA [id number] [place] [id number] [place] [employer] [facility] Basophils/100 WBC (Bld) 0.3 % Normal [facility] Comment on above: Order Comment: Speci men Type: BLOOD SPECIMENOrdering Facility: [facility] Address: [address] [place] [address] Performed By: #### 5 7021-8 ####VILL[facility] LABORATORYCLIA [id number] [address] Differential cell count method Nom (Bld) Auto Normal [facility] Comment on above: Order Comment: Speci men Type: BLOOD SPECIMENOrdering Facility: [facility] Address: [address] [place] [address] Performed By: #### 5 7021-8 ####[facility] LABORATORYCLIA [id number] [address] [place] Eosinophils (Bld) [#/Vol] 0.13 10*3/uL Normal <0.46 [facility] Comment on above: Order Comment: Speci men Type: BLOOD SPECIMENOrdering Facility: [facility] Address: [address] [place] [address] Performed By: #### 5 7021-8 ####VILL[facility] LABORATORYCLIA [id number] [address] [place] Eosinophils/100 WBC (Bld) 1.1 % Normal [facility] Comment on above: Order Comment: Speci men Type: BLOOD SPECIMENOrdering Facility: [facility] Address: [address] [place] [address] Performed By: #### 5 7021-8 ####VILL[facility] LABORATORYCLIA [id number] [address] Erythrocyte distribution width (RBC) [Ratio] 16.0 % High 11.5-15.0 [facility] Comment on above: Order Comment: Speci men Type: BLOOD SPECIMENOrdering Facility: [facility] Address: [address] [place] [address] Performed By: #### 5 7021-8 ####VILL[facility] LABORATORYCLIA [id number] [address] Hematocrit (Bld) [Volume fraction] 24.0 % Low 36.0-46.0 [facility] Comment on above: Order Comment: Speci men Type: BLOOD SPECIMENOrdering Facility: [facility] Address: [address] [place] [address] Performed By: #### 5 7021-8 ####[facility] LABORATORYCLIA [id number] [address] Hemoglobin (Bld) [Mass/Vol] 7.7 g/dL Low 11.5-15.5 [facility] Comment on above: Order Comment: Speci men Type: BLOOD SPECIMENOrdering Facility: [facility] Address: [address] [place] [address] Performed By: #### 5 7021-8 ####[facility] LABORATORYCLIA [id number] [place] [address] [place] Immature granulocytes (Bld) [#/Vol] 0.19 10*3/uL High <0.10 [facility] Comment on above: Order Comment: Speci men Type: BLOOD SPECIMENOrdering Facility: [facility] Address: [address] [place] [address] Performed By: #### 5 7021-8 ####[facility] LABORATORYCLIA [id number] [place] [address] [place] Immature granulocytes/100 WBC (Bld) 1.6 % Normal [facility] Comment on above: Order Comment: Speci men Type: BLOOD SPECIMENOrdering Facility: [facility] Address: [address] [place] [address] Performed By: #### 5 7021-8 ####[facility] LABORATORYCLIA [id number] [place] [address] [place] Lymphocytes (Bld) [#/Vol] 1.38 10*3/uL Normal 1.00-4.00 [facility] Comment on above: Order Comment: Speci men Type: BLOOD SPECIMENOrdering Facility: [facility] Address: [address] [place] [address] Performed By: #### 5 7021-8 ####[facility] LABORATORYCLIA [id number] [place] [address] [place] Lymphocytes/100 WBC (Bld) 11.9 % Normal [facility] Comment on above: Order Comment: Speci men Type: BLOOD SPECIMENOrdering Facility: [facility] Address: [address] [place] [address] Performed By: #### 5 7021-8 ####[facility] LABORATORYCLIA [id number] [place] [address] [place] MCH (RBC) [Entitic mass] 28.2 pg Normal 26.0-34.0 [facility] Comment on above: Order Comment: Speci men Type: BLOOD SPECIMENOrdering Facility: [facility] Address: [address] [place] [address] Performed By: #### 5 7021-8 ####[facility] LABORATORYCLIA [id number] [place] [address] [place] MCHC (RBC) [Mass/Vol] 32.1 g/dL Normal 30.5-36.0 [facility] Comment on above: Order Comment: Speci men Type: BLOOD SPECIMENOrdering Facility: [facility] Address: [address] [place] [address] Performed By: #### 5 7021-8 ####VILLARREAL LABORATORYCLIA [id number] [place] [address] [place] MCV (RBC) [Entitic vol] 87.9 fL Normal 80.0-100.0 [facility] Comment on above: Order Comment: Speci men Type: BLOOD SPECIMENOrdering Facility: [facility] Address: [address] [place] [address] Performed By: #### 5 7021-8 ####VILLARREAL LABORATORYCLIA [id number] [place] [address] [place] Monocytes (Bld) [#/Vol] 0.77 10*3/uL Normal <0.87 [facility] Comment on above: Order Comment: Speci men Type: BLOOD SPECIMENOrdering Facility: [facility] Address: [address] [place] [address] Performed By: #### 5 7021-8 ####VILLARREAL LABORATORYCLIA [id number] [address] [place] Monocytes/100 WBC (Bld) 6.6 % Normal [facility] Comment on above: Order Comment: Speci men Type: BLOOD SPECIMENOrdering Facility: [facility] Address: [address] [place] [address] Performed By: #### 5 7021-8 ####VILLARREAL LABORATORYCLIA [id number] [place] [address] [place] Neutrophils (Bld) [#/Vol] 9.10 10*3/uL High 1.45-7.50 [facility] Comment on above: Order Comment: Speci men Type: BLOOD SPECIMENOrdering Facility: [facility] Address: [address] [place] [address] Performed By: #### 5 7021-8 ####VILLARREAL LABORATORYCLIA [id number] [address] [place] Neutrophils/100 WBC (Bld) 78.5 % Normal [facility] Comment on above: Order Comment: Speci men Type: BLOOD SPECIMENOrdering Facility: [facility] Address: [address] [place] [address] Performed By: #### 5 7021-8 ####VILLARREAL LABORATORYCLIA [id number] [address] [place] Nucleated RBC (Bld) [#/Vol] 10*3/uL Normal <0.01 [facility] Comment on above: Order Comment: Speci men Type: BLOOD SPECIMENOrdering Facility: [facility] Address: [address] [place] [address] Performed By: #### 5 7021-8 ####VILLARREAL LABORATORYCLIA [id number] [address] [place] Nucleated RBC/100 WBC (Bld) [Ratio] 0.0 /100 WBC Normal [facility] Comment on above: Order Comment: Speci men Type: BLOOD SPECIMENOrdering Facility: [facility] Address: [address] [place] [address] Performed By: #### 5 7021-8 ####VILLARREAL LABORATORYCLIA [id number] [place] [address] [place] Platelet mean volume (Bld) [Entitic vol] 8.4 fL Low 9.0-12.7 [facility] Comment on above: Order Comment: Speci men Type: BLOOD SPECIMENOrdering Facility: [facility] Address: [address] [place] [address] Performed By: #### 5 7021-8 ####VILLARREAL LABORATORYCLIA [id number] [place] [address] [place] Platelets (Bld) [#/Vol] 577 10*3/uL High 150-400 [facility] Comment on above: Order Comment: Speci men Type: BLOOD SPECIMENOrdering Facility: [facility] Address: [address] [facility] [place] [id number] Performed By: #### 5 7021-8 ####VILLARREAL LABORATORYCLIA [id number] [address] [place] RBC (Bld) [#/Vol] 2.73 10*6/uL Low 3.90-5.[address] [facility] Comment on above: Order Comment: Speci men Type: BLOOD SPECIMENOrdering Facility: [facility] Address: [address] [place] [address] Performed By: #### 5 7021-8 ####GREELEY LABORATORYCLIA [id number] [address] OF [facility] WBC (Bld) [#/Vol] 11.60 10*3/uL High 3.70-11.00 [facility] Comment on above: Order Comment: Speci men Type: BLOOD SPECIMENOrdering Facility: [facility] Address: [address] [place] [address] Performed By: #### 5 7021-8 ####GREELEY LABORATORYCLIA [id number] [address] CONSULT PROGon 12-08-2024 CONSULT PROG Normal [facility] CONSULT PROG Normal [facility] CONSULT PRO Normal [facility] Comprehensive metabolic 2000 panelon 12-08-2024 Albumin [Mass/Vol] 2.6 g/dL Low 3.9-4.9 [facility] Comment on above: Order Comment: Speci men Type: BLOOD SPECIMENOrdering Facility: [facility] Address: [address] [place], [place] [address] Performed By: #### 2 4323-8, 75253-9 ####GREELEY LABORATORYCLIA [id number] [address] ALP [Catalytic activity/Vol] 106 U/L Normal 34-123 [facility] Comment on above: Order Comment: Speci men Type: BLOOD SPECIMENOrdering Facility: [facility] Address: [address] [place] [address] Performed By: #### 2 432-8, ####VILLARREAL LABORATORYCLIA [id number] [place] [address] [place] ALT [Catalytic activity/Vol] U/L Low 7-38 [facility] Comment on above: Order Comment: Speci men Type: BLOOD SPECIMENOrdering Facility: [facility] Address: [address] [place] [phone] Performed By: #### 2 432-8, 43430-4 ####VILLARRAEL LABORATORYCLIA [id number] [place] [id number] [place] Anion gap [Moles/Vol] 8 mmol/L Normal 8-15 [facility] Comment on above: Order Comment: Speci men Type: BLOOD SPECIMENOrdering Facility: [facility] Address: [address] [place] [address] Performed By: #### 2 432-8, ####VILLARREAL LABORATORYCLIA [id number] [address] [place] AST [Catalytic activity/Vol] 20 U/L Normal 13-35 [facility] Comment on above: Order Comment: Speci men Type: BLOOD SPECIMENOrdering Facility: [facility] Address: [address] [place] [address] Performed By: #### 2 8, ####VILLARREAL LABORATORYCLIA [id number] [place] [id number] [place] Bilirubin [Mass/Vol] mg/dL Low 0.2-1.3 [facility] Comment on above: Order Comment: Speci men Type: BLOOD SPECIMENOrdering Facility: [facility] Address: [address] [place] [phone] Performed By: #### 2 4323-8, ####VILLARREAL LABORATORYCLIA [id number] [address] STATES OF [facility] Calcium [Mass/Vol] 9.0 mg/dL Normal 8.5-10.2 [facility] Comment on above: Order Comment: Speci men Type: BLOOD SPECIMENOrdering Facility: [facility] Address: [address] [place], [place] [address] Performed By: #### 2 4323-8, ####VILLARREAL LABORATORYCLIA [id number] [place] [id number] [place] Chloride [Moles/Vol] 99 mmol/L Normal 98-107 [facility] Comment on above: Order Comment: Speci men Type: BLOOD SPECIMENOrdering Facility: [facility] Address: [address] [place] [address] Performed By: #### 2 4323-8, ####VILLARREAL LABORATORYCLIA [id number] [place] [id number] [place] CO2 [Moles/Vol] 27 mmol/L Normal 22-30 [facility] Comment on above: Order Comment: Speci men Type: BLOOD SPECIMENOrdering Facility: [facility] Address: [address] [place] [address] Performed By: #### 2 4323-8, ####VILLARREAL LABORATORYCLIA [id number] [place] [id number] [place] Creatinine [Mass/Vol] 0.86 mg/dL Normal 0.58-0.96 [facility] Comment on above: Order Comment: Speci men Type: BLOOD SPECIMENOrdering Facility: [facility] Address: [address] [place] [address] Performed By: #### 2 4323-8, ####VILLARREAL LABORATORYCLIA [id number] [address] Creatinine and Glomerular filtration rate.predicted panel (S/P/Bld) 65 mL/min/1.73m??? Normal >=60 [facility] Comment on above: Order Comment: Speci men Type: BLOOD SPECIMENOrdering Facility: [facility] Address: [address] [place] [address] Result Comment: Hilda mated Glomerular Filtration Rate [...] Performed By: #### 2 4323-8, ####VILLARREAL LABORATORYCLIA [id number] [place] [address] [place] Glucose [Mass/Vol] 170 mg/dL High 74-99 [facility] Comment on above: Order Comment: Fan meade Type: BLOOD SPECIMENOrdering Facility: [facility] Address: [address] [place], [place] [address] Result Comment: The [place] [employer] (ADA) provides guidance for cutoff [...] Standards of Medical Care in Diabetes 2016, [place] [employer]. Diabetes Care. 2016.39(Suppl 1). Performed By: #### 2 4323-8, ####GREELEY LABORATORYCLIA [id number] [place] [address] [place] Potassium [Moles/Vol] 4.5 mmol/L Normal 3.7-5.1 [facility] Comment on above: Order Comment: Fan meade Type: BLOOD SPECIMENOrdering Facility: [facility] Address: [address] [place] [phone] Performed By: #### 2 4323-8, ####VILLARREAL LABORATORYCLIA [id number] [place] [id number] [place] Protein [Mass/Vol] 5.3 g/dL Low 6.3-8.0 [facility] Comment on above: Order Comment: Fan meade Type: BLOOD SPECIMENOrdering Facility: [facility] Address: [address] [place] [address] Performed By: #### 2 432, ####VILLARREAL LABORATORYCLIA [id number] [place] [id number] [place] Sodium [Moles/Vol] 134 mmol/L Low 136-144 [facility] Comment on above: Order Comment: Speci men Type: BLOOD SPECIMENOrdering Facility: [facility] Address: [address] [place] [address] Performed By: #### 2 4323-8, ####VILLARREAL LABORATORYCLIA [id number] [place] [address] [place] Urea nitrogen [Mass/Vol] 45 mg/dL High 7-21 [facility] Comment on above: Order Comment: Speci men Type: BLOOD SPECIMENOrdering Facility: [facility] Address: [address] [place] [address] Performed By: #### 2 4323-8, ####VILLARREAL LABORATORYCLIA [id number] [place] [address] [place] Magnesium SerPl-mCncon 12-08 Magnesium [Mass/Vol] 1.7 mg/dL Normal 1.7-2.3 [facility] Comment on above: Order Comment: Speci men Type: BLOOD SPECIMENOrdering Facility: [facility] Address: [address] [place] [address] Performed By: #### 2 4323-8, ####VILLARREAL LABORATORYCLIA [id number] [place] [address] [place] OCCULT BLD EXAM-DIAGon 12-08 OCCULT BLD EXAM-DIAG Negative [facility] Comment on above: Performed By: #### O BDX ####VILLARREAL LABORATORYCLIA [id number] [place] [id number] [place] ALLIED HEALTHon 12-07-2024 ALLIED HEALTH Normal [facility] ALLIED HEALTH [facility] CASE MANAGEMon 12-07-2024 CASE MANAGEM [facility] CBC W Auto Differential pane l (Bld)on 12-07-2024 Basophils (Bld) [#/Vol] 10*3/uL Normal <0.11 [facility] Comment on above: Order Comment: Speci men Type: BLOOD SPECIMENOrdering Facility: [facility] Address: [address] [place] [address] Performed By: #### 5 7021-8 ####VILLARREAL LABORATORYCLIA [id number] [place] [address] [place] Basophils/100 WBC (Bld) 0.2 % Normal [facility] Comment on above: Order Comment: Speci men Type: BLOOD SPECIMENOrdering Facility: [facility] Address: [address] [place] [address] Performed By: #### 5 7021-8 ####VILLARREAL LABORATORYCLIA [id number] [place] [address] [place] Differential cell count method Nom (Bld) Auto Normal [facility] Comment on above: Order Comment: Speci men Type: BLOOD SPECIMENOrdering Facility: [facility] Address: [address] [place] [address] Performed By: #### 5 7021-8 ####VILLARREAL LABORATORYCLIA [id number] [place] [address] [place] Eosinophils (Bld) [#/Vol] 0.09 10*3/uL Normal <0.46 [facility] Comment on above: Order Comment: Speci men Type: BLOOD SPECIMENOrdering Facility: [facility] Address: [address] [place] [address] Performed By: #### 5 7021-8 ####VILLARREAL LABORATORYCLIA [id number] [place] [address] [place] Eosinophils/100 WBC (Bld) 0.8 % Normal [facility] Comment on above: Order Comment: Speci men Type: BLOOD SPECIMENOrdering Facility: [facility] Address: [address] [place] [address] Performed By: #### 5 7021-8 ####VILLARREAL LABORATORYCLIA [id number] [place] [address] [place] Erythrocyte distribution width (RBC) [Ratio] 16.0 % High 11.5-15.0 [facility] Comment on above: Order Comment: Speci men Type: BLOOD SPECIMENOrdering Facility: [facility] Address: [address] [place] [address] Performed By: #### 5 7021-8 ####VILLARREAL LABORATORYCLIA [id number] [address] [place] Hematocrit (Bld) [Volume fraction] 25.2 % Low 36.0-46.0 [facility] Comment on above: Order Comment: Speci men Type: BLOOD SPECIMENOrdering Facility: [facility] Address: [address] [place] [address] Performed By: #### 5 7021-8 ####VILLARREAL LABORATORYCLIA [id number] [place] [address] [place] Hemoglobin (Bld) [Mass/Vol] 8.2 g/dL Low 11.5-15.5 [facility] Comment on above: Order Comment: Speci men Type: BLOOD SPECIMENOrdering Facility: [facility] Address: [address] [place], [place] [address] [address] Performed By: #### 5 7021-8 ####VILLARREAL LABORATORYCLIA [id number] [address] [place] Immature granulocytes (Bld) [#/Vol] 0.18 10*3/uL High <0.10 [facility] Comment on above: Order Comment: Speci men Type: BLOOD SPECIMENOrdering Facility: [facility] Address: [address] [place] [address] [place] [address] Performed By: #### 5 7021-8 ####VILLARREAL LABORATORYCLIA [id number] [address] [place] Immature granulocytes/100 WBC (Bld) 1.6 % Normal [facility] Comment on above: Order Comment: Speci men Type: BLOOD SPECIMENOrdering Facility: [facility] Address: [address] [place] [address] [place] [address] Performed By: #### 5 7021-8 ####VILLARREAL LABORATORYCLIA [id number] [address] [place] Lymphocytes (Bld) [#/Vol] 0.83 10*3/uL Low 1.00-4.00 [facility] Comment on above: Order Comment: Speci men Type: BLOOD SPECIMENOrdering Facility: [facility] Address: [address] [place] [address] Performed By: #### 5 7021-8 ####VILLARREAL LABORATORYCLIA [id number] [address] Lymphocytes/100 WBC (Bld) 7.6 % Normal [facility] Comment on above: Order Comment: Speci men Type: BLOOD SPECIMENOrdering Facility: [facility] Address: [address] [place] [address] Performed By: #### 5 7021-8 ####VILLARREAL LABORATORYCLIA [id number] [address] MCH (RBC) [Entitic mass] 28.5 pg Normal 26.0-34.0 [facility] Comment on above: Order Comment: Speci men Type: BLOOD SPECIMENOrdering Facility: [facility] Address: [address] [place] [address] Performed By: #### 5 7021-8 ####VILLARREAL LABORATORYCLIA [id number] [address] [place] MCHC (RBC) [Mass/Vol] 32.5 g/dL Normal 30.5-36.0 [facility] Comment on above: Order Comment: Speci men Type: BLOOD SPECIMENOrdering Facility: [facility] Address: [address] [place] [address] Performed By: #### 5 7021-8 ####VILLARREAL LABORATORYCLIA [id number] [address] MCV (RBC) [Entitic vol] 87.5 fL Normal 80.0-100.0 [facility] Comment on above: Order Comment: Speci men Type: BLOOD SPECIMENOrdering Facility: [facility] Address: [address] [place] [address] Performed By: #### 5 7021-8 ####VILLARREAL LABORATORYCLIA [id number] [address] Monocytes (Bld) [#/Vol] 0.81 10*3/uL Normal <0.87 [facility] Comment on above: Order Comment: Speci men Type: BLOOD SPECIMENOrdering Facility: [facility] Address: [address] [place] [address] Performed By: #### 5 7021-8 ####VILLARREAL LABORATORYCLIA [id number] [place] [address] [place] Monocytes/100 WBC (Bld) 7.4 % Normal [facility] Comment on above: Order Comment: Speci men Type: BLOOD SPECIMENOrdering Facility: [facility] Address: [address] [place] [address] Performed By: #### 5 7021-8 ####VILLARREAL LABORATORYCLIA [id number] [place] [address] [place] Neutrophils (Bld) [#/Vol] 8.99 10*3/uL High 1.45-7.50 [facility] Comment on above: Order Comment: Speci men Type: BLOOD SPECIMENOrdering Facility: [facility] Address: [address] [place] [address] Performed By: #### 5 7021-8 ####VILLARREAL LABORATORYCLIA [id number] [place] [address] [place] Neutrophils/100 WBC (Bld) 82.4 % Normal [facility] Comment on above: Order Comment: Speci men Type: BLOOD SPECIMENOrdering Facility: [facility] Address: [address] [place] [address] Performed By: #### 5 7021-8 ####VILLARREAL LABORATORYCLIA [id number] [place] [address] [place] Nucleated RBC (Bld) [#/Vol] 10*3/uL Normal <0.01 [facility] Comment on above: Order Comment: Speci men Type: BLOOD SPECIMENOrdering Facility: [facility] Address: [address] [place] [address] Performed By: #### 5 7021-8 ####VILLARREAL LABORATORYCLIA [id number] [place] [address] [place] Nucleated RBC/100 WBC (Bld) [Ratio] 0.0 /100 WBC Normal [facility] Comment on above: Order Comment: Speci men Type: BLOOD SPECIMENOrdering Facility: [facility] Address: [address] [place] [address] Performed By: #### 5 7021-8 ####VILLARREAL LABORATORYCLIA [id number] [address] [place] Platelet mean volume (Bld) [Entitic vol] 8.3 fL Low 9.0-12.7 [facility] Comment on above: Order Comment: Speci men Type: BLOOD SPECIMENOrdering Facility: [facility] Address: [address] [place] [address] Performed By: #### 5 7021-8 ####VILLARREAL LABORATORYCLIA [id number] [address] [place] Platelets (Bld) [#/Vol] 564 10*3/uL High 150-400 [facility] Comment on above: Order Comment: Speci men Type: BLOOD SPECIMENOrdering Facility: [facility] Address: [address] [place] [address] Performed By: #### 5 7021-8 ####VILLARREAL LABORATORYCLIA [id number] [address] [place] RBC (Bld) [#/Vol] 2.88 10*6/uL Low 3.90-5.[address] [facility] Comment on above: Order Comment: Speci men Type: BLOOD SPECIMENOrdering Facility: [facility] Address: [address] [place] [address] Performed By: #### 5 7021-8 ####VILLARREAL LABORATORYCLIA [id number] [address] [place] WBC (Bld) [#/Vol] 10.92 10*3/uL Normal 3.70-11.00 [facility] Comment on above: Order Comment: Speci men Type: BLOOD SPECIMENOrdering Facility: [facility] Address: [address] [place] [address] Performed By: #### 5 7021-8 ####VILLARREAL LABORATORYCLIA [id number] [address] CONSULTon 12-07-2024 CONSULT Normal [facility] CONSULT PROGon 12-07-2024 CONSULT PROG Normal [facility] CONSULT PROG Normal [facility] CONSULT PROG Normal [facility] CONSULT PROG Normal [facility] CRP SerPl-mCncon 12-07-2024 CRP [Mass/Vol] 3.6 mg/dL High <0.9 [facility] Comment on above: Order Comment: Speci men Type: BLOOD SPECIMENOrdering Facility: [facility] Address: [address] [place] [address] Performed By: #### 1 988-5, 42317-1, 34226-0, 3040-3 ####VILLARREAL LABORATORYCLIA [id number] [address] Comprehensive metabolic 2000 panelon 12-07-2024 Albumin [Mass/Vol] 2.6 g/dL Low 3.9-4.9 [facility] Comment on above: Order Comment: Speci men Type: BLOOD SPECIMENOrdering Facility: [facility] Address: [address] [place] [address] Performed By: #### 1 988-5, 41744-0, 01515-8, 3040-3 ####GREELEY LABORATORYCLIA [id number] [address] STATES OF [facility] ALP [Catalytic activity/Vol] 111 U/L Normal 34-123 [facility] Comment on above: Order Comment: Speci men Type: BLOOD SPECIMENOrdering Facility: [facility] Address: [address] [place] [address] Performed By: #### 1 988-5, 54145-0, 25666-2, 3040-3 ####VILLARREAL LABORATORYCLIA [id number] [place] [address] [facility] ALT [Catalytic activity/Vol] U/L Low 7-38 [facility] Comment on above: Order Comment: Speci men Type: BLOOD SPECIMENOrdering Facility: [facility] Address: [address] [place] [address] Performed By: #### 1 988-5, 68176-2, 01796-9, 3040-3 ####VILLARREAL LABORATORYCLIA [id number] [place] [address] [place] Anion gap [Moles/Vol] 9 mmol/L Normal 8-15 [facility] Comment on above: Order Comment: Speci men Type: BLOOD SPECIMENOrdering Facility: [facility] Address: [address] [place] [address] Performed By: #### 1 988-5, 95771-7, 31819-3, 0-3 ####VILLARREAL LABORATORYCLIA [id number] [place] [address] [place] AST [Catalytic activity/Vol] 29 U/L Normal 13-35 [facility] Comment on above: Order Comment: Speci men Type: BLOOD SPECIMENOrdering Facility: [facility] Address: [address] [place] [address] Performed By: #### 1 988-5, 28189-6, 70389-3, 0-3 ####GREELEY LABORATORYCLIA [id number] [place] [address] [place] Bilirubin [Mass/Vol] mg/dL Low 0.2-1.3 [facility] Comment on above: Order Comment: Speci men Type: BLOOD SPECIMENOrdering Facility: [facility] Address: [address] [place] [address] Performed By: #### 1 988-5, 51595-2, 16025-9, 0-3 ####[facility] LABORATORYCLIA [id number] [place] [address] [place] Calcium [Mass/Vol] 9.3 mg/dL Normal 8.5-10.2 [facility] Comment on above: Order Comment: Speci men Type: BLOOD SPECIMENOrdering Facility: [facility] Address: [address] [place] [address] Performed By: #### 1 988-5, 27238-7, 56920-1, 3040-3 ####[facility]ORATORYCLIA [id number] [place] [address] [place] Chloride [Moles/Vol] 98 mmol/L Normal 98-107 [facility] Comment on above: Order Comment: Speci men Type: BLOOD SPECIMENOrdering Facility: [facility] Address: [address] [place], [place] [address] Performed By: #### 1 988-5, 20845-9, 91733-3, 3039-3 ####[facility] LABORATORYCLIA [id number] [place] [address] [place] CO2 [Moles/Vol] 28 mmol/L Normal 22-30 [facility] Comment on above: Order Comment: Speci men Type: BLOOD SPECIMENOrdering Facility: [facility] Address: [address] [place], [place] [address] Performed By: #### 1 988-5, 24811-4, , 3 ####[facility] LABORATORYCLIA [id number] [place] [address] [place] Creatinine [Mass/Vol] 0.76 mg/dL Normal 0.58-0.96 [facility] Comment on above: Order Comment: Speci men Type: BLOOD SPECIMENOrdering Facility: [facility] Address: [address] [place] [address] Performed By: #### 1 988-5, 72173-3, , 3 ####[facility] LABORATORYCLIA [id number] [address] Creatinine and Glomerular filtration rate.predicted panel (S/P/Bld) 75 mL/min/1.73m??? Normal >=60 [facility] Comment on above: Order Comment: Speci men Type: BLOOD SPECIMENOrdering Facility: [facility] Address: [address] [place], [place] [address] Result Comment: Hilda mated Glomerular Filtration Rate [...] actual GFR. Performed By: #### 1 988-5, 32912-8, , 3 ####[facility] LABORATORYCLIA [id number] [place] [address] [place] Glucose [Mass/Vol] 260 mg/dL High 74-99 [facility] Comment on above: Order Comment: Fan meade Type: BLOOD SPECIMENOrdering Facility: [facility] Address: [address] [place] [address] Result Comment: The [place] Diabetes Association (ADA) provides guidance for cutoff [...] Standards of Medical Care in Diabetes 2016, [place] [employer]. Diabetes Care. 2016.39(Suppl 1). Performed By: #### 1 988-5, 52090-9, , 3039-3 ####[facility] LABORATORYCLIA [id number] [place] [address] [place] Potassium [Moles/Vol] 4.5 mmol/L Normal 3.7-5.1 [facility] Comment on above: Order Comment: Fan meade Type: BLOOD SPECIMENOrdering Facility: [facility] Address: [address] [place], [place] [address] Performed By: #### 1 988-5, 72339-3, , 3039-3 ####[facility] LABORATORYCLIA [id number] [place] [address] [place] Protein [Mass/Vol] 5.5 g/dL Low 6.3-8.0 [facility] Comment on above: Order Comment: Fan meade Type: BLOOD SPECIMENOrdering Facility: [facility] Address: [address] [place], [place] [address] Performed By: #### 1 988-5, 89852-5, 66958-3, 3040-3 ####[facility] LABORATORYCLIA [id number] [place] [address] [place] Sodium [Moles/Vol] 135 mmol/L Low 136-144 [facility] Comment on above: Order Comment: Speci men Type: BLOOD SPECIMENOrdering Facility: [facility] Address: [address] [place] [address] Performed By: #### 1 988-5, 54454-8, 76510-7, 3040-3 ####[facility] LABORATORYCLIA [id number] [place] [address] [place] Urea nitrogen [Mass/Vol] 43 mg/dL High 7-21 [facility] Comment on above: Order Comment: Speci men Type: BLOOD SPECIMENOrdering Facility: [facility] Address: [address] [place] [address] Performed By: #### 1 988-5, 55694-1, 85741-3, 3040-3 ####[facility] LABORATORYCLIA [id number] [address] [place] ESR Westergren method (Bld) [Velocity]on 12-07-2024 ESR (Bld) [Velocity] 103 mm/h High 0-20 [facility] Comment on above: Order Comment: Speci men Type: BLOOD SPECIMENOrdering Facility: [facility] Address: [address] [place] [address] Performed By: #### 4 537-7 ####[facility] LABCLIA [id number] [facility] [id number] [address] [place] Folate SerPl-mCncon 12-07-19 25 Folate [Mass/Vol] 7.7 ng/mL Normal >4.7 [facility] Comment on above: Order Comment: Speci men Type: BLOOD SPECIMENOrdering Facility: [facility] Address: [address] [place] [address] Performed By: #### 2 284-8, 2132-9 ####[facility] LABORATORYCLIA [id number] [place] [address] [place] Lipase SerPl-cCncon 12-07-19 25 Lipase [Catalytic activity/Vol] 50 U/L Normal 16-61 [facility] Comment on above: Order Comment: Speci men Type: BLOOD SPECIMENOrdering Facility: [facility] Address: [address] [place], [place] [address] Performed By: #### 1 988-5, 49379-9, 07907-5, 3040-3 ####[facility] LABORATORYCLIA [id number] [address] [facility] Magnesium [facility] Hospitalon [facility]-07 Magnesium [Mass/Vol] 1.7 mg/dL Normal 1.7-2.3 [facility] Comment on above: Order Comment: Speci men Type: BLOOD SPECIMENOrdering Facility: [facility] Address: [address] [place] [address] Performed By: #### 1 988-5, 97830-2, 73099-4, 3040-3 ####[facility] LABORATORYCLIA [id number] [place] [address] [place] US DVT LOWER BILon 5 US DVT LOWER RADHA Normal [facility] Vit B12 SerPl-[facility] Hospitalon 025 Cobalamin (Vitamin B12) [Mass/Vol] 400 pg/mL Normal 232-1245 [facility] Comment on above: Order Comment: Speci men Type: BLOOD SPECIMENOrdering Facility: [facility] Address: [address] [place] [address] Performed By: #### 2 284-8, 2132-9 ####[facility] LABORATORYCLIA [id number] [address] [place] XR ABD 2V SUPINE W UPR/DECUB /CTLon 12-07-2024 XR ABD 2V SUPINE W UPR/DECUB/CTL Normal [facility] CASE MANAGEMon 12-06-2024 CASE MANAGEM Normal [facility] CBC W Auto Differential pane l (Bld)on 12-06-2024 Basophils (Bld) [#/Vol] 0.03 10*3/uL Normal <0.11 [facility] Comment on above: Order Comment: Speci men Type: BLOOD SPECIMENOrdering Facility: [facility] Address: [address] [place] [address] Performed By: #### 5 7021-8 ####[facility] LABORATORYCLIA [id number] [place] [address] [place] Basophils/100 WBC (Bld) 0.2 % Normal [facility] Comment on above: Order Comment: Speci men Type: BLOOD SPECIMENOrdering Facility: [facility] Address: [address] [place] [address] Performed By: #### 5 7021-8 ####[facility] LABORATORYCLIA [id number] [place] [address] [place] Differential cell count method Nom (Bld) Auto Normal [facility] Comment on above: Order Comment: Speci men Type: BLOOD SPECIMENOrdering Facility: [facility] Address: [address] [place] [address] Performed By: #### 5 7021-8 ####[facility] LABORATORYCLIA [id number] [place] [address] [place] Eosinophils (Bld) [#/Vol] 0.09 10*3/uL Normal <0.46 [facility] Comment on above: Order Comment: Speci men Type: BLOOD SPECIMENOrdering Facility: [facility] Address: [address] [place] [address] Performed By: #### 5 7021-8 ####[facility] LABORATORYCLIA [id number] [address] [place] Eosinophils/100 WBC (Bld) 0.6 % Normal [facility] Comment on above: Order Comment: Speci men Type: BLOOD SPECIMENOrdering Facility: [facility] Address: [address] [place] [address] Performed By: #### 5 7021-8 ####[facility] LABORATORYCLIA [id number] [place] [address] [place] Erythrocyte distribution width (RBC) [Ratio] 15.9 % High 11.5-15.0 [facility] Comment on above: Order Comment: Speci men Type: BLOOD SPECIMENOrdering Facility: [facility] Address: [address] [place] [address] Performed By: #### 5 7021-8 ####[facility] LABORATORYCLIA [id number] [address] Hematocrit (Bld) [Volume fraction] 25.5 % Low 36.0-46.0 [facility] Comment on above: Order Comment: Speci men Type: BLOOD SPECIMENOrdering Facility: [facility] Address: [address] [place] [address] Performed By: #### 5 7021-8 ####[facility] LABORATORYCLIA [id number] [address] [place] Hemoglobin (Bld) [Mass/Vol] 8.3 g/dL Low 11.5-15.5 [facility] Comment on above: Order Comment: Speci men Type: BLOOD SPECIMENOrdering Facility: [facility] Address: [address] [place] [address] Performed By: #### 5 7021-8 ####[facility] LABORATORYCLIA [id number] [address] [place] Immature granulocytes (Bld) [#/Vol] 0.15 10*3/uL High <0.10 [facility] Comment on above: Order Comment: Speci men Type: BLOOD SPECIMENOrdering Facility: [facility] Address: [address] [place] [address] Performed By: #### 5 7021-8 ####[facility] LABORATORYCLIA [id number] [address] [place] Immature granulocytes/100 WBC (Bld) 1.0 % Normal [facility] Comment on above: Order Comment: Speci men Type: BLOOD SPECIMENOrdering Facility: [facility] Address: [address] [place] [address] Performed By: #### 5 7021-8 ####[facility] LABORATORYCLIA [id number] [address] Lymphocytes (Bld) [#/Vol] 0.98 10*3/uL Low 1.00-4.00 [facility] Comment on above: Order Comment: Speci men Type: BLOOD SPECIMENOrdering Facility: [facility] Address: [address] [place] [address] Performed By: #### 5 7021-8 ####[facility] LABORATORYCLIA [id number] [address] Lymphocytes/100 WBC (Bld) 6.7 % Normal [facility] Comment on above: Order Comment: Speci men Type: BLOOD SPECIMENOrdering Facility: [facility] Address: [address] [place] [address] Performed By: #### 5 7021-8 ####[facility] LABORATORYCLIA [id number] [address] [place] MCH (RBC) [Entitic mass] 27.9 pg Normal 26.0-34.0 [facility] Comment on above: Order Comment: Speci men Type: BLOOD SPECIMENOrdering Facility: [facility] Address: [address] [place] [address] Performed By: #### 5 7021-8 ####[facility] LABORATORYCLIA [id number] [address] MCHC (RBC) [Mass/Vol] 32.5 g/dL Normal 30.5-36.0 [facility] Comment on above: Order Comment: Speci men Type: BLOOD SPECIMENOrdering Facility: [facility] Address: [address] [place] [address] Performed By: #### 5 7021-8 ####[facility] LABORATORYCLIA [id number] [address] MCV (RBC) [Entitic vol] 85.9 fL Normal 80.0-100.0 [facility] Comment on above: Order Comment: Speci men Type: BLOOD SPECIMENOrdering Facility: [facility] Address: [address] [place] [address] Performed By: #### 5 7021-8 ####[facility] LABORATORYCLIA [id number] [address] [place] Monocytes (Bld) [#/Vol] 0.94 10*3/uL High <0.87 [facility] Comment on above: Order Comment: Speci men Type: BLOOD SPECIMENOrdering Facility: [facility] Address: [address] [place] [address] Performed By: #### 5 7021-8 ####[facility] LABORATORYCLIA [id number] [place] [address] [place] Monocytes/100 WBC (Bld) 6.5 % Normal [facility] Comment on above: Order Comment: Speci men Type: BLOOD SPECIMENOrdering Facility: [facility] Address: [address] [place] [address] Performed By: #### 5 7021-8 ####[facility] LABORATORYCLIA [id number] [place] [address] [place] Neutrophils (Bld) [#/Vol] 12.37 10*3/uL High 1.45-7.50 [facility] Comment on above: Order Comment: Speci men Type: BLOOD SPECIMENOrdering Facility: [facility] Address: [address] [place] [address] Performed By: #### 5 7021-8 ####[facility] LABORATORYCLIA [id number] [place] [address] [place] Neutrophils/100 WBC (Bld) 85.0 % Normal [facility] Comment on above: Order Comment: Speci men Type: BLOOD SPECIMENOrdering Facility: [facility] Address: [address] [place] [address] Performed By: #### 5 7021-8 ####[facility] LABORATORYCLIA [id number] [place] [address] [place] Nucleated RBC (Bld) [#/Vol] 10*3/uL Normal <0.01 [facility] Comment on above: Order Comment: Speci men Type: BLOOD SPECIMENOrdering Facility: [facility] Address: [address] [place] [address] Performed By: #### 5 7021-8 ####[facility] LABORATORYCLIA [id number] [place] [address] [place] Nucleated RBC/100 WBC (Bld) [Ratio] 0.0 /100 WBC Normal [facility] Comment on above: Order Comment: Speci men Type: BLOOD SPECIMENOrdering Facility: [facility] Address: [address] [place] [address] Performed By: #### 5 7021-8 ####[facility] LABORATORYCLIA [id number] [place] [address] [place] Platelet mean volume (Bld) [Entitic vol] 8.3 fL Low 9.0-12.7 [facility] Comment on above: Order Comment: Speci men Type: BLOOD SPECIMENOrdering Facility: [facility] Address: [address] [place], [place] [address] [address] Performed By: #### 5 7021-8 ####V[facility] LABORATORYCLIA [id number] [place] [id number] [place] Platelets (Bld) [#/Vol] 602 10*3/uL High 150-400 [facility] Comment on above: Order Comment: Speci men Type: BLOOD SPECIMENOrdering Facility: [facility] Address: [facility] [place] [address] Performed By: #### 5 7021-8 ####[facility] LABORATORYCLIA [id number] [place] [address] [place] RBC (Bld) [#/Vol] 2.97 10*6/uL Low 3.90-5.[address] [facility] Comment on above: Order Comment: Speci men Type: BLOOD SPECIMENOrdering Facility: [facility] Address: [facility] [place] [address] Performed By: #### 5 7021-8 ####[facility] LABORATORYCLIA [id number] [place] [address] [place] WBC (Bld) [#/Vol] 14.56 10*3/uL High 3.70-11.00 [facility] Comment on above: Order Comment: Speci men Type: BLOOD SPECIMENOrdering Facility: [facility] Address: [address] [place], [place] [address] [address] Performed By: #### 5 7021-8 ####V[facility] LABORATORYCLIA [id number] [place] [id number] [place] CONSULTon 12-06-2024 CONSULT Normal [facility] CONSULT Normal [facility] CONSULT PROGon 12-06-2024 CONSULT PROG [facility] CONSULT PROG [facility] Comprehensive metabolic 2000 panelon 12-06-2024 Albumin [Mass/Vol] 2.5 g/dL Low 3.9-4.9 [facility] Comment on above: Order Comment: Speci men Type: BLOOD SPECIMENOrdering Facility: [facility] Address: [address] [place] [address] Performed By: #### 2 951-2, , ####V[facility] LABORATORYCLIA [id number] [place] [address] [place] ALP [Catalytic activity/Vol] 112 U/L Normal 34-123 [facility] Comment on above: Order Comment: Speci men Type: BLOOD SPECIMENOrdering Facility: [facility] Address: [address] [place] [address] Performed By: #### 2 951-2, , ####V[facility] LABORATORYCLIA [id number] [address] [place] ALT [Catalytic activity/Vol] U/L Low 7-38 [facility] Comment on above: Order Comment: Speci men Type: BLOOD SPECIMENOrdering Facility: [facility] Address: [address] [place] [address] Performed By: #### 2 951-2, , 05116-6 ####[facility] LABORATORYCLIA [id number] [place] [address] [place] Anion gap [Moles/Vol] 10 mmol/L Normal 8-15 [facility] Comment on above: Order Comment: Speci men Type: BLOOD SPECIMENOrdering Facility: [facility] Address: [address] [place] [address] Performed By: #### 2 951-2, , ####V[facility] LABORATORYCLIA [id number] [place] [address] [place] AST [Catalytic activity/Vol] 25 U/L Normal 13-35 [facility] Comment on above: Order Comment: Speci men Type: BLOOD SPECIMENOrdering Facility: [facility] Address: [address] [facility] [place] [address] Performed By: #### 2 951-2, , ####V[facility] LABORATORYCLIA [id number] [place] [address] [place] Bilirubin [Mass/Vol] mg/dL Low 0.2-1.3 [facility] Comment on above: Order Comment: Speci men Type: BLOOD SPECIMENOrdering Facility: [facility] Address: [address] [place] [address] Performed By: #### 2 951-2, , ####V[facility] LABORATORYCLIA [id number] [place] [address] [place] Calcium [Mass/Vol] 9.5 mg/dL Normal 8.5-10.2 [facility] Comment on above: Order Comment: Speci men Type: BLOOD SPECIMENOrdering Facility: [facility] Address: [address] [place] [address] Performed By: #### 2 951-2, , ####VILL[facility] LABORATORYCLIA [id number] [place] [address] [place] Chloride [Moles/Vol] 97 mmol/L Low 98-107 [facility] Comment on above: Order Comment: Speci men Type: BLOOD SPECIMENOrdering Facility: [facility] Address: [address] [place] [address] Performed By: #### 2 951-2, , ####VILL[facility] LABORATORYCLIA [id number] [place] [address] [place] CO2 [Moles/Vol] 27 mmol/L Normal 22-30 [facility] Comment on above: Order Comment: Speci men Type: BLOOD SPECIMENOrdering Facility: [facility] Address: [address] [place] [address] Performed By: #### 2 951-2, , ####VILL[facility] LABORATORYCLIA [id number] [place] [address] [place] Creatinine [Mass/Vol] 0.95 mg/dL Normal 0.58-0.96 [facility] Comment on above: Order Comment: Fan meade Type: BLOOD SPECIMENOrdering Facility: [facility] Address: [address] [place] [address] Performed By: #### 2 951-2, 80721-0, ####VILLARREAL LABORATORYCLIA [id number] [place] [id number] [facility] Creatinine and Glomerular filtration rate.predicted panel (S/P/Bld) 58 mL/min/1.73m??? Low >=60 [facility] Comment on above: Order Comment: Fan meade Type: BLOOD SPECIMENOrdering Facility: [facility] Address: [address] [place] [address] Result Comment: Hilda mated Glomerular Filtration Rate [...] GFR. Performed By: #### 2 951-2, , ####VILLARRE[facility] LABORATORYCLIA [id number] [place] [id number] [place] [facility] Glucose [Mass/Vol] 93 mg/dL Normal 74-99 [facility] Comment on above: Order Comment: Fan meade Type: BLOOD SPECIMENOrdering Facility: [facility] Address: [address] [place] [address] Result Comment: The [place] [employer] (ADA) provides guidance for cutoff [...] Standards of Medical Care in Diabetes 2016, [place] [employer]. Diabetes Care. 2016.39(Suppl 1). Performed By: #### 2 951-2, , ####VILLARREAL LABORATORYCLIA [id number] [place] [address] [place] Potassium [Moles/Vol] 3.8 mmol/L Normal 3.7-5.1 [facility] Comment on above: Order Comment: Speci men Type: BLOOD SPECIMENOrdering Facility: [facility] Address: [address] [place], [place] [address] Performed By: #### 2 951-2, , ####VILLARRE[facility] LABORATORYCLIA [id number] [place] [address] [place] Protein [Mass/Vol] 5.7 g/dL Low 6.3-8.0 [facility] Comment on above: Order Comment: Speci men Type: BLOOD SPECIMENOrdering Facility: [facility] Address: [address] [place], [place] [address] Performed By: #### 2 951-2, , ####VILLARREAL LABORATORYCLIA [id number] [place] [id number] [place] Urea nitrogen [Mass/Vol] 45 mg/dL High 7-21 [facility] Comment on above: Order Comment: Speci men Type: BLOOD SPECIMENOrdering Facility: [facility] Address: [address] [place] [address] Performed By: #### 2 951-2, , ####VILLARREAL LABORATORYCLIA [id number] [place] [address] [place] Magnesium SerPl-mCncon 12-06 Magnesium [Mass/Vol] 1.8 mg/dL Normal 1.7-2.3 [facility] Comment on above: Order Comment: Katei men Type: BLOOD SPECIMENOrdering Facility: [facility] Address: [address] [place] [address] Performed By: #### 2 951-2, , ####VILLARREAL LABORATORYCLIA [id number] [place] [address] [place] Sodium SerPl-sCncon 12-06-19 25 Sodium [Moles/Vol] 135 mmol/L Low 136-144 [facility] Comment on above: Order Comment: Speci men Type: BLOOD SPECIMENOrdering Facility: [facility] Address: [address] [place] [address] Performed By: #### 2 951-2 ####VILLARREAL LABORATORYCLIA [id number] [place] [address] [place] Sodium [Moles/Vol] 132 mmol/L Low 136-144 [facility] Comment on above: Order Comment: Speci men Type: BLOOD SPECIMENOrdering Facility: [facility] Address: [address] [place] [address] Performed By: #### 2 951-2 ####VILLARREAL LABORATORYCLIA [id number] [place] [address] [place] Sodium [Moles/Vol] 136 mmol/L Normal 136-144 [facility] Comment on above: Order Comment: Speci men Type: BLOOD SPECIMENOrdering Facility: [facility] Address: [address] [place] [address] Performed By: #### 2 951-2 ####VILLARRE[facility] LABORATORYCLIA [id number] [place] [address] [place] Sodium [Moles/Vol] 134 mmol/L Low 136-144 [facility] Comment on above: Order Comment: Speci men Type: BLOOD SPECIMENOrdering Facility: [facility] Address: [address] [place], [place] [id number] Performed By: #### 2 951-2, , ####VILLARREAL LABORATORYCLIA [id number] [place] [address] [place] Sodium [Moles/Vol] 131 mmol/L Low 136-144 [facility] Comment on above: Order Comment: Speci men Type: BLOOD SPECIMENOrdering Facility: [facility] Address: [address] [place] [address] Performed By: #### 2 951-2 ####VILLARREAL LABORATORYCLIA [id number] [place] [address] [place] [facility] [place] THERAPY NTon 12-06-2024 THERAPY NT Normal [facility] URINALYSIS, REFLEX MICROSCOP ICon 12-06-2024 Bilirubin Ql (U) Negative Normal Negative [facility] Comment on above: Order Comment: Speci men Type: URINE SPECIMENOrdering Facility: [facility] Address: [address] [place] [address] Performed By: #### L [id number] ####VILLARREAL LABORATORYCLIA [id number] [address] Clarity (Unsp spec) Clear Normal Clear [facility] Comment on above: Order Comment: Speci men Type: URINE SPECIMENOrdering Facility: [facility] Address: [address] [place] [address] Performed By: #### L [id number] ####VILLARREAL LABORATORYCLIA [id number] [address] [place] Color (U) Yellow Normal Yellow [facility] Comment on above: Order Comment: Speci men Type: URINE SPECIMENOrdering Facility: [facility] Address: [address] [place] [address] Performed By: #### L [id number] ####VILLARREAL LABORATORYCLIA [id number] [address] Epithelial cells LM.HPF (Urine sed) [#/Area] Few Normal [facility] Comment on above: Order Comment: Speci men Type: URINE SPECIMENOrdering Facility: [facility] Address: [address] [place] [address] Performed By: #### L [id number] ####VILLARREAL LABORATORYCLIA [id number] [place] [id number] [facility] [place] Glucose Test strip (U) [Mass/Vol] Negative Normal Negative [facility] Comment on above: Order Comment: Speci men Type: URINE SPECIMENOrdering Facility: [facility] Address: [address] [place] [address] Performed By: #### L [id number] ####VILLARREAL LABORATORYCLIA [id number] [place] [address] [place] Hemoglobin Ql (U) Negative Normal Negative [facility] Comment on above: Order Comment: Speci men Type: URINE SPECIMENOrdering Facility: [facility] Address: [address] [place] [address] Performed By: #### L [id number] ####VILLARREAL LABORATORYCLIA [id number] [place] [address] [place] Ketones Ql (U) Negative Normal Negative [facility] Comment on above: Order Comment: Speci men Type: URINE SPECIMENOrdering Facility: [facility] Address: [address] [place] [address] Performed By: #### L [id number] ####VILLARREAL LABORATORYCLIA [id number] [address] [place] Leukocyte esterase Test strip Ql (U) 1+ Abnormal Negative [facility] Comment on above: Order Comment: Speci men Type: URINE SPECIMENOrdering Facility: [facility] Address: [address] [place] [address] Performed By: #### L [id number] ####VILLARREAL LABORATORYCLIA [id number] [place] [address] [place] Nitrite Ql (U) Negative Normal Negative [facility] Comment on above: Order Comment: Speci men Type: URINE SPECIMENOrdering Facility: [facility] Address: [address] [place] [address] Performed By: #### L [id number] ####VILLARREAL LABORATORYCLIA [id number] [place] [address] [place] pH (U) 6.0 [pH] Normal 5.0-8.0 [facility] Comment on above: Order Comment: Speci men Type: URINE SPECIMENOrdering Facility: [facility] Address: [address] [place] [address] Performed By: #### L [id number] ####VILLARREAL LABORATORYCLIA [id number] [place] [address] [place] Protein (U) [Mass/Vol] 1+ Abnormal Negative [facility] Comment on above: Order Comment: Speci men Type: URINE SPECIMENOrdering Facility: [facility] Address: [address] [place] [address] Performed By: #### L [id number] ####VILLARREAL LABORATORYCLIA [id number] [address] RBC LM.HPF (Urine sed) [#/Area] 0-3 /HPF Normal 0-3 /HPF [facility] Comment on above: Order Comment: Speci men Type: URINE SPECIMENOrdering Facility: [facility] Address: [address] [place] [address] Performed By: #### L [id number] ####VILLARREAL LABORATORYCLIA [id number] [address] Specific gravity (U) [Rel density] 1.010 Normal 1.005-1.030 [facility] Comment on above: Order Comment: Speci men Type: URINE SPECIMENOrdering Facility: [facility] Address: [address] [place] [address] Performed By: #### L [id number] ####VILLARREAL LABORATORYCLIA [id number] [address] Urobilinogen Ql (U) 0.2 EU/dL Normal 0.2-1.0 EU/dL [facility] Comment on above: Order Comment: Speci men Type: URINE SPECIMENOrdering Facility: [facility] Address: [address] [place] [address] Performed By: #### L [id number] ####VILLARREAL LABORATORYCLIA [id number] [address] WBC LM.HPF (Urine sed) [#/Area] 0-5 /HPF Normal 0-5 /HPF [facility] Comment on above: Order Comment: Speci men Type: URINE SPECIMENOrdering Facility: [facility] Address: [address] [place] [address] Performed By: #### L [id number] ####VILLARREAL LABORATORYCLIA [id number] [address] Yeast.budding LM.HPF (Urine sed) [#/Area] Few Abnormal None Seen [facility] Comment on above: Order Comment: Speci men Type: URINE SPECIMENOrdering Facility: [facility] Address: [address] [place] [address] Performed By: #### L [id number] ####VILLARREAL LABORATORYCLIA [id number] [place] [address] [place] ALLIED HEALTHon 12-05-2024 ALLIED HEALTH Normal [facility] CASE MANAGEMon 12-05-2024 CASE MANAGEM Normal [facility] CASE MANAGEM Normal [facility] CBC W Auto Differential pane l (Bld)on 12-05-2024 Basophils (Bld) [#/Vol] 10*3/uL Normal <0.11 [facility] Comment on above: Order Comment: Speci men Type: BLOOD SPECIMENOrdering Facility: [facility] Address: [address] [place] [address] Performed By: #### 5 7021-8 ####VILLARREAL LABORATORYCLIA [id number] [place] [address] [place] Basophils/100 WBC (Bld) 0.1 % Normal [facility] Comment on above: Order Comment: Speci men Type: BLOOD SPECIMENOrdering Facility: [facility] Address: [address] [place] [address] Performed By: #### 5 7021-8 ####VILLARREAL LABORATORYCLIA [id number] [place] [address] [place] Differential cell count method Nom (Bld) Auto Normal [facility] Comment on above: Order Comment: Speci men Type: BLOOD SPECIMENOrdering Facility: [facility] Address: [address] [place] [address] Performed By: #### 5 7021-8 ####VILLARREAL LABORATORYCLIA [id number] [place] [address] [place] Eosinophils (Bld) [#/Vol] 10*3/uL Normal <0.46 [facility] Comment on above: Order Comment: Speci men Type: BLOOD SPECIMENOrdering Facility: [facility] Address: [address] [place] [address] Performed By: #### 5 7021-8 ####VILLARREAL LABORATORYCLIA [id number] [place] [address] [place] Eosinophils/100 WBC (Bld) 0.0 % Normal [facility] Comment on above: Order Comment: Speci men Type: BLOOD SPECIMENOrdering Facility: [facility] Address: [address] [place] [address] Performed By: #### 5 7021-8 ####VILLARREAL LABORATORYCLIA [id number] [place] [address] [place] Erythrocyte distribution width (RBC) [Ratio] 15.8 % High 11.5-15.0 [facility] Comment on above: Order Comment: Speci men Type: BLOOD SPECIMENOrdering Facility: [facility] Address: [address] [place] [address] Performed By: #### 5 7021-8 ####VILLARREAL LABORATORYCLIA [id number] [place] [address] [place] Hematocrit (Bld) [Volume fraction] 26.3 % Low 36.0-46.0 [facility] Comment on above: Order Comment: Speci men Type: BLOOD SPECIMENOrdering Facility: [facility] Address: [address] [place] [address] Performed By: #### 5 7021-8 ####VILLARREAL LABORATORYCLIA [id number] [place] [address] [place] Hemoglobin (Bld) [Mass/Vol] 8.5 g/dL Low 11.5-15.5 [facility] Comment on above: Order Comment: Speci men Type: BLOOD SPECIMENOrdering Facility: [facility] Address: [address] [place] [address] Performed By: #### 5 7021-8 ####VILLARREAL LABORATORYCLIA [id number] [address] [place] Immature granulocytes (Bld) [#/Vol] 0.11 10*3/uL High <0.10 [facility] Comment on above: Order Comment: Speci men Type: BLOOD SPECIMENOrdering Facility: [facility] Address: [address] [place] [address] Performed By: #### 5 7021-8 ####VILLARREAL LABORATORYCLIA [id number] [address] Immature granulocytes/100 WBC (Bld) 0.9 % Normal [facility] Comment on above: Order Comment: Speci men Type: BLOOD SPECIMENOrdering Facility: [facility] Address: [address] [place] [address] Performed By: #### 5 7021-8 ####VILLARREAL LABORATORYCLIA [id number] [address] Lymphocytes (Bld) [#/Vol] 0.46 10*3/uL Low 1.00-4.00 [facility] Comment on above: Order Comment: Speci men Type: BLOOD SPECIMENOrdering Facility: [facility] Address: [address] [place] [address] Performed By: #### 5 7021-8 ####VILLARREAL LABORATORYCLIA [id number] [address] Lymphocytes/100 WBC (Bld) 3.8 % Normal [facility] Comment on above: Order Comment: Speci men Type: BLOOD SPECIMENOrdering Facility: [facility] Address: [address] [place] [address] Performed By: #### 5 7021-8 ####VILLARREAL LABORATORYCLIA [id number] [address] MCH (RBC) [Entitic mass] 27.9 pg Normal 26.0-34.0 [facility] Comment on above: Order Comment: Speci men Type: BLOOD SPECIMENOrdering Facility: [facility] Address: [address] [place] [address] Performed By: #### 5 7021-8 ####VILLARREAL LABORATORYCLIA [id number] [address] MCHC (RBC) [Mass/Vol] 32.3 g/dL Normal 30.5-36.0 [facility] Comment on above: Order Comment: Speci men Type: BLOOD SPECIMENOrdering Facility: [facility] Address: [address] [place] [address] Performed By: #### 5 7021-8 ####VILLARREAL LABORATORYCLIA [id number] [place] [address] [place] MCV (RBC) [Entitic vol] 86.2 fL Normal 80.0-100.0 [facility] Comment on above: Order Comment: Speci men Type: BLOOD SPECIMENOrdering Facility: [facility] Address: [address] [place] [address] Performed By: #### 5 7021-8 ####VILLARREAL LABORATORYCLIA [id number] [place] [address] [place] Monocytes (Bld) [#/Vol] 0.18 10*3/uL Normal <0.87 [facility] Comment on above: Order Comment: Speci men Type: BLOOD SPECIMENOrdering Facility: [facility] Address: [address] [place] [address] Performed By: #### 5 7021-8 ####VILLARREAL LABORATORYCLIA [id number] [address] [place] Monocytes/100 WBC (Bld) 1.5 % Normal [facility] Comment on above: Order Comment: Speci men Type: BLOOD SPECIMENOrdering Facility: [facility] Address: [address] [place] [address] Performed By: #### 5 7021-8 ####VILLARREAL LABORATORYCLIA [id number] [place] [address] [place] Neutrophils (Bld) [#/Vol] 11.38 10*3/uL High 1.45-7.50 [facility] Comment on above: Order Comment: Speci men Type: BLOOD SPECIMENOrdering Facility: [facility] Address: [address] [place] [address] Performed By: #### 5 7021-8 ####VILLARREAL LABORATORYCLIA [id number] [address] Neutrophils/100 WBC (Bld) 93.7 % Normal [facility] Comment on above: Order Comment: Speci men Type: BLOOD SPECIMENOrdering Facility: [facility] Address: [address] [place] [address] Performed By: #### 5 7021-8 ####VILLARREAL LABORATORYCLIA [id number] [place] [address] [place] Nucleated RBC (Bld) [#/Vol] 10*3/uL Normal <0.01 [facility] Comment on above: Order Comment: Speci men Type: BLOOD SPECIMENOrdering Facility: [facility] Address: [address] [place] [address] Performed By: #### 5 7021-8 ####VILLARREAL LABORATORYCLIA [id number] [place] [id number] [place] Nucleated RBC/100 WBC (Bld) [Ratio] 0.0 /100 WBC Normal [facility] Comment on above: Order Comment: Speci men Type: BLOOD SPECIMENOrdering Facility: [facility] Address: [address] [place] [address] Performed By: #### 5 7021-8 ####VILLARREAL LABORATORYCLIA [id number] [place] [address] [place] Platelet mean volume (Bld) [Entitic vol] 8.8 fL Low 9.0-12.7 [facility] Comment on above: Order Comment: Speci men Type: BLOOD SPECIMENOrdering Facility: [facility] Address: [address] [place] [address] Performed By: #### 5 7021-8 ####VILLARREAL LABORATORYCLIA [id number] [place] [id number] [place] Platelets (Bld) [#/Vol] 568 10*3/uL High 150-400 [facility] Comment on above: Order Comment: Speci men Type: BLOOD SPECIMENOrdering Facility: [facility] Address: [address] [place] [address] Performed By: #### 5 7021-8 ####VILLARREAL LABORATORYCLIA [id number] [place] [address] [place] RBC (Bld) [#/Vol] 3.05 10*6/uL Low 3.90-5.[address] [facility] Comment on above: Order Comment: Speci men Type: BLOOD SPECIMENOrdering Facility: [facility] Address: [address] [address] Performed By: #### 5 7021-8 ####VILLARREAL LABORATORYCLIA [id number] [address] WBC (Bld) [#/Vol] 12.14 10*3/uL High 3.70-11.00 [facility] Comment on above: Order Comment: Speci men Type: BLOOD SPECIMENOrdering Facility: [facility] Address: [address] [place] [address] Performed By: #### 5 7021-8 ####VILLARREAL LABORATORYCLIA [id number] [address] CBC panel Auto (Bld)on 12-05 Erythrocyte distribution width (RBC) [Ratio] 15.8 % High 11.5-15.0 [facility] Comment on above: Order Comment: Speci men Type: BLOOD SPECIMENOrdering Facility: [facility] Address: [address] [place] [address] Performed By: #### 5 8410-2 ####VILLARREAL LABORATORYCLIA [id number] [address] Hematocrit (Bld) [Volume fraction] 24.8 % Low 36.0-46.0 [facility] Comment on above: Order Comment: Speci men Type: BLOOD SPECIMENOrdering Facility: [facility] Address: [address] [place] [address] Performed By: #### 5 8410-2 ####VILLARREAL LABORATORYCLIA [id number] [address] Hemoglobin (Bld) [Mass/Vol] 8.2 g/dL Low 11.5-15.5 [facility] Comment on above: Order Comment: Speci men Type: BLOOD SPECIMENOrdering Facility: [facility] Address: [address] [place] [address] Performed By: #### 5 8410-2 ####VILLARREAL LABORATORYCLIA [id number] [address] MCH (RBC) [Entitic mass] 28.1 pg Normal 26.0-34.0 [facility] Comment on above: Order Comment: Speci men Type: BLOOD SPECIMENOrdering Facility: [facility] Address: [address] [place] [address] Performed By: #### 5 8410-2 ####VILLARREAL LABORATORYCLIA [id number] [address] MCHC (RBC) [Mass/Vol] 33.1 g/dL Normal 30.5-36.0 [facility] Comment on above: Order Comment: Speci men Type: BLOOD SPECIMENOrdering Facility: [facility] Address: [address] [place] [address] Performed By: #### 5 8410-2 ####[place] LABORATORYCLIA [id number] [address] MCV (RBC) [Entitic vol] 84.9 fL Normal 80.0-100.0 [facility] Comment on above: Order Comment: Speci men Type: BLOOD SPECIMENOrdering Facility: [facility] Address: [address] [place] [address] Performed By: #### 5 8410-2 ####[place] LABORATORYCLIA [id number] [address] Nucleated RBC (Bld) [#/Vol] 10*3/uL Normal <0.01 [facility] Comment on above: Order Comment: Speci men Type: BLOOD SPECIMENOrdering Facility: [facility] Address: [address] [place] [address] Performed By: #### 5 8410-2 ####[place] LABORATORYCLIA [id number] [address] Platelet mean volume (Bld) [Entitic vol] 8.8 fL Low 9.0-12.7 [facility] Comment on above: Order Comment: Speci men Type: BLOOD SPECIMENOrdering Facility: [facility] Address: [address] [place] [address] Performed By: #### 5 8410-2 ####VILLARREAL LABORATORYCLIA [id number] [address] Platelets (Bld) [#/Vol] 574 10*3/uL High 150-400 [facility] Comment on above: Order Comment: Speci men Type: BLOOD SPECIMENOrdering Facility: [facility] Address: [facility] [place] [address] Performed By: #### 5 8410-2 ####VILLARREAL LABORATORYCLIA [id number] [address] [facility] RBC (Bld) [#/Vol] 2.92 10*6/uL Low 3.90-5.[address] [facility] Comment on above: Order Comment: Speci men Type: BLOOD SPECIMENOrdering Facility: [facility] Address: [address] [place] [address] Performed By: #### 5 8410-2 ####[place] LABORATORYCLIA [id number] [address] WBC (Bld) [#/Vol] 13.26 10*3/uL High 3.70-11.00 [facility] Comment on above: Order Comment: Speci men Type: BLOOD SPECIMENOrdering Facility: [facility] Address: [address] [place] [address] Performed By: #### 5 8410-2 ####[place] LABORATORYCLIA [id number] [address] CONSULT PROGon 12-05-2024 CONSULT PROG Normal [facility] CONSULT PROG Normal [facility] CONSULT PRO Normal [facility] Comprehensive metabolic 2000 panelon 12-05-2024 Albumin [Mass/Vol] 2.5 g/dL Low 3.9-4.9 [facility] Comment on above: Order Comment: Speci men Type: BLOOD SPECIMENOrdering Facility: [facility] Address: [address] [place] [address] Performed By: #### 3 040-3, 21227-9 ####[place] LABORATORYCLIA [id number] [address] [place] ALP [Catalytic activity/Vol] 117 U/L Normal 34-123 [facility] Comment on above: Order Comment: Speci men Type: BLOOD SPECIMENOrdering Facility: [facility] Address: [address] [facility] [place] [address] Performed By: #### 3 040-3, 14322-5 ####VILLARREAL LABORATORYCLIA [id number] [place] [address] [place] [facility] ALT [Catalytic activity/Vol] U/L Low 7-38 [facility] Comment on above: Order Comment: Speci men Type: BLOOD SPECIMENOrdering Facility: [facility] Address: [address] [place], [place] [address] [address] Performed By: #### 3 040-3, ####VILLARREAL LABORATORYCLIA [id number] [place] [address] [place] Anion gap [Moles/Vol] 13 mmol/L Normal 8-15 [facility] Comment on above: Order Comment: Speci men Type: BLOOD SPECIMENOrdering Facility: [facility] Address: [address] [place] [address] Performed By: #### 3 -3, 59116-0 ####VILLARREAL LABORATORYCLIA [id number] [address] [place] AST [Catalytic activity/Vol] 18 U/L Normal 13-35 [facility] Comment on above: Order Comment: Speci men Type: BLOOD SPECIMENOrdering Facility: [facility] Address: [facility] [place] [address] Performed By: #### 3 040-3, 18878-5 ####VILLARREAL LABORATORYCLIA [id number] [place] [address] [place] Bilirubin [Mass/Vol] mg/dL Low 0.2-1.3 [facility] Comment on above: Order Comment: Speci men Type: BLOOD SPECIMENOrdering Facility: [facility] Address: [address] [place] [address] [place] [address] Performed By: #### 3 040-3, 22399-8 ####VILLARREAL LABORATORYCLIA [id number] [place] [address] [place] Calcium [Mass/Vol] 9.5 mg/dL Normal 8.5-10.2 [facility] Comment on above: Order Comment: Speci men Type: BLOOD SPECIMENOrdering Facility: [facility] Address: [address] [place] [address] Performed By: #### 3 040-3, 90749-3 ####VILLARRE[facility] LABORATORYCLIA [id number] [place] [address] [place] Chloride [Moles/Vol] 92 mmol/L Low 98-107 [facility] Comment on above: Order Comment: Speci men Type: BLOOD SPECIMENOrdering Facility: [facility] Address: [address] [place] [address] Performed By: #### 3 040-3, 41743-6 ####VILL[facility] LABORATORYCLIA [id number] [place] [address] [place] CO2 [Moles/Vol] 24 mmol/L Normal 22-30 [facility] Comment on above: Order Comment: Speci men Type: BLOOD SPECIMENOrdering Facility: [facility] Address: [address] [place] [address] Performed By: #### 3 040-3, 53168-0 ####VILLARRE[facility] LABORATORYCLIA [id number] [place] [address] [place] Creatinine [Mass/Vol] 1.04 mg/dL High 0.58-0.96 [facility] Comment on above: Order Comment: Speci men Type: BLOOD SPECIMENOrdering Facility: [facility] Address: [address] [place] [address] Performed By: #### 3 040-3, 18886-8 ####VILLARREAL LABORATORYCLIA [id number] [address] Creatinine and Glomerular filtration rate.predicted panel (S/P/Bld) 52 mL/min/1.73m??? Low >=60 [facility] Comment on above: Order Comment: Speci men Type: BLOOD SPECIMENOrdering Facility: [facility] Address: [address] [place] [address] Result Comment: Hilda mated Glomerular Filtration Rate [...] actual GFR. Performed By: #### 3 040-3, 17065-6 ####[facility] LABORATORYCLIA [id number] [place] [address] [place] Glucose [Mass/Vol] 279 mg/dL High 74-99 [facility] Comment on above: Order Comment: Fan meade Type: BLOOD SPECIMENOrdering Facility: [facility] Address: [address] [place] [address] Result Comment: The [place] [employer] (ADA) provides guidance for cutoff [...] Standards of Medical Care in Diabetes 2016, [place] [employer]. Diabetes Care. 2016.39(Suppl 1). Performed By: #### 3 040-3, 89318-4 ####VILLARREAL LABORATORYCLIA [id number] [place] [address] [place] Potassium [Moles/Vol] 4.4 mmol/L Normal 3.7-5.1 [facility] Comment on above: Order Comment: Fan meade Type: BLOOD SPECIMENOrdering Facility: [facility] Address: [address] [id number] Performed By: #### 3 040-3, 18484-5 ####VILLARREAL LABORATORYCLIA [id number] [place] [id number] [place] Protein [Mass/Vol] 5.8 g/dL Low 6.3-8.0 [facility] Comment on above: Order Comment: Fan meade Type: BLOOD SPECIMENOrdering Facility: [facility] Address: [address] [place] [address] Performed By: #### 3 040-3, 86258-1 ####VILLARRE[facility] LABORATORYCLIA [id number] [place] [address] [place] Sodium [Moles/Vol] 129 mmol/L Low 136-144 [facility] Comment on above: Order Comment: Speci men Type: BLOOD SPECIMENOrdering Facility: [facility] Address: [address] [place] [address] Performed By: #### 3 040-3, 38735-3 ####VILLARREAL LABORATORYCLIA [id number] [place] [address] [place] Urea nitrogen [Mass/Vol] 49 mg/dL High 7-21 [facility] Comment on above: Order Comment: Speci men Type: BLOOD SPECIMENOrdering Facility: [facility] Address: [address] [place] [address] Performed By: #### 3 040-3, 84539-2 ####VILLARREAL LABORATORYCLIA [id number] [place] [address] [place] [facility] Albumin [Mass/Vol] 2.5 g/dL Low 3.9-4.9 [facility] Comment on above: Order Comment: Speci men Type: BLOOD SPECIMENOrdering Facility: [facility] Address: [address] [place] [address] Performed By: #### 2 951-2, , ####VILLARREAL LABORATORYCLIA [id number] [address] [place] ALP [Catalytic activity/Vol] 122 U/L Normal 34-123 [facility] Comment on above: Order Comment: Speci men Type: BLOOD SPECIMENOrdering Facility: [facility] Address: [address] [place] [address] Performed By: #### 2 951-2, , ####VILLARREAL LABORATORYCLIA [id number] [place] [address] [place] ALT [Catalytic activity/Vol] U/L Low 7-38 [facility] Comment on above: Order Comment: Speci men Type: BLOOD SPECIMENOrdering Facility: [facility] Address: [address] [place] [address] Performed By: #### 2 951-2, , ####VILLARREAL LABORATORYCLIA [id number] [place] [address] [place] Anion gap [Moles/Vol] 11 mmol/L Normal 8-15 [facility] Comment on above: Order Comment: Speci men Type: BLOOD SPECIMENOrdering Facility: [facility] Address: [facility] [place] [address] Performed By: #### 2 951-2, , ####VILLARREAL LABORATORYCLIA [id number] [place] [address] [place] AST [Catalytic activity/Vol] 21 U/L Normal 13-35 [facility] Comment on above: Order Comment: Speci men Type: BLOOD SPECIMENOrdering Facility: [facility] Address: [facility] [place] [address] Performed By: #### 2 951-2, , ####VILLARREAL LABORATORYCLIA [id number] [place] [id number] [place] Bilirubin [Mass/Vol] mg/dL Low 0.2-1.3 [facility] Comment on above: Order Comment: Speci men Type: BLOOD SPECIMENOrdering Facility: [facility] Address: [facility] [place] [address] Performed By: #### 2 951-2, , ####VILLARREAL LABORATORYCLIA [id number] [place] [id number] [place] Calcium [Mass/Vol] 9.8 mg/dL Normal 8.5-10.2 [facility] Comment on above: Order Comment: Speci men Type: BLOOD SPECIMENOrdering Facility: [facility] Address: [facility] [place] [address] Performed By: #### 2 951-2, , ####VILLARREAL LABORATORYCLIA [id number] [place] [id number] [place] Chloride [Moles/Vol] 94 mmol/L Low 98-107 [facility] Comment on above: Order Comment: Fan meade Type: BLOOD SPECIMENOrdering Facility: [facility] Address: [address] [place], [place] [address] Performed By: #### 2 951-2, , ####[facility] LABORATORYCLIA [id number] [place] [address] [place] CO2 [Moles/Vol] 26 mmol/L Normal 22-30 [facility] Comment on above: Order Comment: Fan men Type: BLOOD SPECIMENOrdering Facility: [facility] Address: [address] [place] [address] Performed By: #### 2 951-2, , ####[facility] LABORATORYCLIA [id number] [address] [place] Creatinine [Mass/Vol] 0.89 mg/dL Normal 0.58-0.96 [facility] Comment on above: Order Comment: Fan men Type: BLOOD SPECIMENOrdering Facility: [facility] Address: [address] [place], [place] [address] Performed By: #### 2 951-2, , ####[facility] LABORATORYCLIA [id number] [address] Creatinine and Glomerular filtration rate.predicted panel (S/P/Bld) 62 mL/min/1.73m??? Normal >=60 [facility] Comment on above: Order Comment: Fan men Type: BLOOD SPECIMENOrdering Facility: [facility] Address: [address] [place], [place] [phone] Result Comment: Hilda mated Glomerular Filtration Rate [...] GFR. Performed By: #### 2 951-2, , ####[facility] LABORATORYCLIA [id number] [place] [address] [place] Glucose [Mass/Vol] 238 mg/dL High 74-99 [facility] Comment on above: Order Comment: Fan meade Type: BLOOD SPECIMENOrdering Facility: [facility] Address: [address] [place] [address] Result Comment: The [place] Diabetes [employer] (ADA) provides guidance for cutoff [...] Standards of Medical Care in Diabetes 2016, [place] [employer]. Diabetes Care. 2016.39(Suppl 1). Performed By: #### 2 951-2, , ####[facility] LABORATORYCLIA [id number] [place] [address] [place] Potassium [Moles/Vol] 5.2 mmol/L High 3.7-5.1 [facility] Comment on above: Order Comment: Fan meade Type: BLOOD SPECIMENOrdering Facility: [facility] Address: [address] [place] [address] Performed By: #### 2 951-2, , ####[facility] LABORATORYCLIA [id number] [place] [address] [place] Protein [Mass/Vol] 6.1 g/dL Low 6.3-8.0 [facility] Comment on above: Order Comment: Fan meade Type: BLOOD SPECIMENOrdering Facility: [facility] Address: [address] [place] [address] Performed By: #### 2 951-2, , ####VILLARREAL LABORATORYCLIA [id number] [place] [address] [place] Urea nitrogen [Mass/Vol] 41 mg/dL High 7-21 [facility] Comment on above: Order Comment: Speci men Type: BLOOD SPECIMENOrdering Facility: [facility] Address: [address] [place] [address] Performed By: #### 2 951-2, 85402-7, 26101-3 ####[facility] LABORATORYCLIA [id number] [place] [address] [place] ECG COMPLETEon 12-05-2024 ECG COMPLETE Normal [facility] Lipase SerPl-cCncon 12-05-19 25 Lipase [Catalytic activity/Vol] 31 U/L Normal 16-61 [facility] Comment on above: Order Comment: Speci men Type: BLOOD SPECIMENOrdering Facility: [facility] Address: [address] [place] [address] Performed By: #### 3 040-3, 74972-6 ####[facility] LABORATORYCLIA [id number] [place] [address] [place] Magnesium SerPl-mCncon 12-05 Magnesium [Mass/Vol] 2.0 mg/dL Normal 1.7-2.3 [facility] Comment on above: Order Comment: Speci men Type: BLOOD SPECIMENOrdering Facility: [facility] Address: [address] [place] [address] Performed By: #### 2 951-2, 69383-9, 94934-4 ####VILLARRE[facility] LABORATORYCLIA [id number] [place] [address] [place] SEPSIS LACTATEon 12-05-2024 Lactate [Moles/Vol] 1.5 mmol/L Normal 0.5-2.[address] [facility] Comment on above: Order Comment: Speci men Type: BLOOD SPECIMENOrdering Facility: [facility] Address: [address] [place] [address] Performed By: #### S LACT ####VILL[facility] LABORATORYCLIA [id number] [place] [address] [place] Sodium SerPl-sCncon 12-05-19 25 Sodium [Moles/Vol] 127 mmol/L Low 136-144 [facility] Comment on above: Order Comment: Speci men Type: BLOOD SPECIMENOrdering Facility: [facility] Address: [address] [place] [address] Performed By: #### 2 951-2 ####VILLARRE[facility] LABORATORYCLIA [id number] [place] [address] [place] Sodium [Moles/Vol] 129 mmol/L Low 136-144 [facility] Comment on above: Order Comment: Speci men Type: BLOOD SPECIMENOrdering Facility: [facility] Address: [address] [place] [address] Performed By: #### 2 951-2 ####VILLAR[facility] LABORATORYCLIA [id number] [place] [address] [place] Sodium [Moles/Vol] 131 mmol/L Low 136-144 [facility] Comment on above: Order Comment: Speci men Type: BLOOD SPECIMENOrdering Facility: [facility] Address: [address] [place] [address] Performed By: #### 2 951-2, 10644-1, 83846-0 ####VILLARRE[facility] LABORATORYCLIA [id number] [place] [address] [place] THERAPY NTon 12-05-2024 THERAPY NT [facility] XR ABDOMEN 1V SUPINEon 12-05 XR ABDOMEN 1V SUPINE [facility] CASE MANAGEMon 12-04-2024 CASE MANAGEM [facility] CBC W Auto Differential pane l (Bld)on 12-04-2024 Basophils (Bld) [#/Vol] 0.05 10*3/uL Normal <0.11 [facility] Comment on above: Order Comment: Speci men Type: BLOOD SPECIMENOrdering Facility: [facility] Address: [address] [place] [address] Performed By: #### 5 7021-8 ####VILLARRE[facility] LABORATORYCLIA [id number] [place] [address] [place] Basophils/100 WBC (Bld) 0.2 % Normal [facility] Comment on above: Order Comment: Speci men Type: BLOOD SPECIMENOrdering Facility: [facility] Address: [address] [place] [address] Performed By: #### 5 7021-8 ####VILLARRE[facility] LABORATORYCLIA [id number] [address] Differential cell count method Nom (Bld) Auto Normal [facility] Comment on above: Order Comment: Speci men Type: BLOOD SPECIMENOrdering Facility: [facility] Address: [address] [place] [address] Performed By: #### 5 7021-8 ####VILLARRE[facility] LABORATORYCLIA [id number] [place] [address] [place] Eosinophils (Bld) [#/Vol] 10*3/uL Normal <0.46 [facility] Comment on above: Order Comment: Speci men Type: BLOOD SPECIMENOrdering Facility: [facility] Address: [address] [place] [address] Performed By: #### 5 7021-8 ####VILLAR[facility] LABORATORYCLIA [id number] [address] Eosinophils/100 WBC (Bld) 0.1 % Normal [facility] Comment on above: Order Comment: Speci men Type: BLOOD SPECIMENOrdering Facility: [facility] Address: [address] [place] [address] Performed By: #### 5 7021-8 ####VILLARRE[facility] LABORATORYCLIA [id number] [address] [place] Erythrocyte distribution width (RBC) [Ratio] 15.8 % High 11.5-15.0 [facility] Comment on above: Order Comment: Speci men Type: BLOOD SPECIMENOrdering Facility: [facility] Address: [address] [place] [address] Performed By: #### 5 7021-8 ####VILLARRE[facility] LABORATORYCLIA [id number] [address] [place] Hematocrit (Bld) [Volume fraction] 25.9 % Low 36.0-46.0 [facility] Comment on above: Order Comment: Speci men Type: BLOOD SPECIMENOrdering Facility: [facility] Address: [address] [place] [address] Performed By: #### 5 7021-8 ####VILLAR[facility] LABORATORYCLIA [id number] [place] [address] [place] Hemoglobin (Bld) [Mass/Vol] 8.5 g/dL Low 11.5-15.5 [facility] Comment on above: Order Comment: Speci men Type: BLOOD SPECIMENOrdering Facility: [facility] Address: [address] [place] [address] Performed By: #### 5 7021-8 ####VILLAR[facility] LABORATORYCLIA [id number] [place] [address] [place] Immature granulocytes (Bld) [#/Vol] 0.27 10*3/uL High <0.10 [facility] Comment on above: Order Comment: Speci men Type: BLOOD SPECIMENOrdering Facility: [facility] Address: [address] [place] [address] Performed By: #### 5 7021-8 ####VILLARRE[facility] LABORATORYCLIA [id number] [place] [address] [place] Immature granulocytes/100 WBC (Bld) 1.3 % Normal [facility] Comment on above: Order Comment: Speci men Type: BLOOD SPECIMENOrdering Facility: [facility] Address: [address] [place] [address] Performed By: #### 5 7021-8 ####VILLAR[facility] LABORATORYCLIA [id number] [place] [address] [place] Lymphocytes (Bld) [#/Vol] 0.64 10*3/uL Low 1.00-4.00 [facility] Comment on above: Order Comment: Speci men Type: BLOOD SPECIMENOrdering Facility: [facility] Address: [address] [place] [address] Performed By: #### 5 7021-8 ####VILLARRE[facility] LABORATORYCLIA [id number] [address] [place] Lymphocytes/100 WBC (Bld) 3.1 % Normal [facility] Comment on above: Order Comment: Speci men Type: BLOOD SPECIMENOrdering Facility: [facility] Address: [address] [place] [address] Performed By: #### 5 7021-8 ####VILLAR[facility] LABORATORYCLIA [id number] [place] [address] [place] MCH (RBC) [Entitic mass] 28.1 pg Normal 26.0-34.0 [facility] Comment on above: Order Comment: Speci men Type: BLOOD SPECIMENOrdering Facility: [facility] Address: [address] [place] [address] Performed By: #### 5 7021-8 ####VILL[facility] LABORATORYCLIA [id number] [place] [address] [place] MCHC (RBC) [Mass/Vol] 32.8 g/dL Normal 30.5-36.0 [facility] Comment on above: Order Comment: Speci men Type: BLOOD SPECIMENOrdering Facility: [facility] Address: [address] [place] [address] Performed By: #### 5 7021-8 ####VILL[facility] LABORATORYCLIA [id number] [address] [place] MCV (RBC) [Entitic vol] 85.8 fL Normal 80.0-100.0 [facility] Comment on above: Order Comment: Speci men Type: BLOOD SPECIMENOrdering Facility: [facility] Address: [address] [place] [address] Performed By: #### 5 7021-8 ####V[facility] LABORATORYCLIA [id number] [place] [address] [place] Monocytes (Bld) [#/Vol] 1.09 10*3/uL High <0.87 [facility] Comment on above: Order Comment: Speci men Type: BLOOD SPECIMENOrdering Facility: [facility] Address: [address] [place] [address] Performed By: #### 5 7021-8 ####V[facility] LABORATORYCLIA [id number] [address] Monocytes/100 WBC (Bld) 5.3 % Normal [facility] Comment on above: Order Comment: Speci men Type: BLOOD SPECIMENOrdering Facility: [facility] Address: [address] [place] [address] Performed By: #### 5 7021-8 ####V[facility] LABORATORYCLIA [id number] [place] [address] [place] Neutrophils (Bld) [#/Vol] 18.59 10*3/uL High 1.45-7.50 [facility] Comment on above: Order Comment: Speci men Type: BLOOD SPECIMENOrdering Facility: [facility] Address: [address] [place] [address] Performed By: #### 5 7021-8 ####VILL[facility] LABORATORYCLIA [id number] [address] [place] Neutrophils/100 WBC (Bld) 90.0 % Normal [facility] Comment on above: Order Comment: Speci men Type: BLOOD SPECIMENOrdering Facility: [facility] Address: [address] [place] [address] Performed By: #### 5 7021-8 ####V[facility] LABORATORYCLIA [id number] [place] [address] [place] Nucleated RBC (Bld) [#/Vol] 10*3/uL Normal <0.01 [facility] Comment on above: Order Comment: Speci men Type: BLOOD SPECIMENOrdering Facility: [facility] Address: [address] [place] [address] Performed By: #### 5 7021-8 ####VILL[facility] LABORATORYCLIA [id number] [place] [address] [place] Nucleated RBC/100 WBC (Bld) [Ratio] 0.0 /100 WBC Normal [facility] Comment on above: Order Comment: Speci men Type: BLOOD SPECIMENOrdering Facility: [facility] Address: [address] [place] [address] Performed By: #### 5 7021-8 ####VILL[facility] LABORATORYCLIA [id number] [place] [address] [place] Platelet mean volume (Bld) [Entitic vol] 8.7 fL Low 9.0-12.7 [facility] Comment on above: Order Comment: Speci men Type: BLOOD SPECIMENOrdering Facility: [facility] Address: [address] [place] [address] Performed By: #### 5 7021-8 ####VILL[facility] LABORATORYCLIA [id number] [address] Platelets (Bld) [#/Vol] 518 10*3/uL High 150-400 [facility] Comment on above: Order Comment: Speci men Type: BLOOD SPECIMENOrdering Facility: [facility] Address: [address] [place] [address] Performed By: #### 5 7021-8 ####VILL[facility] LABORATORYCLIA [id number] [address] [place] RBC (Bld) [#/Vol] 3.02 10*6/uL Low 3.90-5.[address] [facility] Comment on above: Order Comment: Speci men Type: BLOOD SPECIMENOrdering Facility: [facility] Address: [address] [place] [address] Performed By: #### 5 7021-8 ####VILL[facility] LABORATORYCLIA [id number] [address] [place] WBC (Bld) [#/Vol] 20.66 10*3/uL High 3.70-11.00 [facility] Comment on above: Order Comment: Speci men Type: BLOOD SPECIMENOrdering Facility: [facility] Address: [address] [place] [address] Performed By: #### 5 7021-8 ####VILL[facility] LABORATORYCLIA [id number] [place] [id number] [facility] CBC W Ordered Manual Differe ntial panel (Bld)on 12-04-2024 Basophils (Bld) [#/Vol] 0.03 10*3/uL Normal <0.11 [facility] Comment on above: Order Comment: Speci men Type: BLOOD SPECIMENOrdering Facility: [facility] Address: [address] [place] [address] Performed By: #### S TFREV ####[facility] LABCL[facility] [id number] [place] [address] [place]#### 64096-7 ####V[facility] LABORATORYCLIA [id number] [place] [address] [place] Basophils/100 WBC (Bld) 0.2 % Normal [facility] Comment on above: Order Comment: Speci men Type: BLOOD SPECIMENOrdering Facility: [facility] Address: [address] [place] [address] Performed By: #### S TFREV ####[facility] LABCLIA [id number] [place] [address] [place]#### 68071-4 ####[facility] LABORATORYCLIA [id number] [place] [address] [place] Differential cell count method Nom (Bld) Auto Normal [facility] Comment on above: Order Comment: Speci men Type: BLOOD SPECIMENOrdering Facility: [facility] Address: [address] [place] [address] Performed By: #### S TFREV ####[facility] LABCL[facility] [id number] [place] [address] [place]#### 69873-0 ####[facility] LABORATORYCLIA [id number] [place] [address] [place] Eosinophils (Bld) [#/Vol] 10*3/uL Normal <0.46 [facility] Comment on above: Order Comment: Speci men Type: BLOOD SPECIMENOrdering Facility: [facility] Address: [address] [place] [address] Performed By: #### S TFREV ####[facility] LABCL[facility] [id number] [place] [address] [place]#### 46571-1 ####[facility] LABORATORYCLIA [id number] [place] [address] [place] Eosinophils/100 WBC (Bld) 0.1 % Normal [facility] Comment on above: Order Comment: Speci men Type: BLOOD SPECIMENOrdering Facility: [facility] Address: [address] [place] [address] Performed By: #### S TFREV ####[facility] LABCLIA [id number] [place] [address] [place]#### 33334-2 ####[facility] LABORATORYCLIA [id number] [place] [address] [place] Erythrocyte distribution width (RBC) [Ratio] 15.9 % High 11.5-15.0 [facility] Comment on above: Order Comment: Speci men Type: BLOOD SPECIMENOrdering Facility: [facility] Address: [address] [place] [address] Performed By: #### S TFREV ####[facility] [id number] [place] [address] [place]#### 22362-7 ####[facility]ORATORYCLIA [id number] [place] [address] [place] Hematocrit (Bld) [Volume fraction] 26.2 % Low 36.0-46.0 [facility] Comment on above: Order Comment: Speci men Type: BLOOD SPECIMENOrdering Facility: [facility] Address: [address] [place] [address] Performed By: #### S TFREV ####[facility] LAB[facility] [id number] [place] [address] [place]#### 48612-4 ####[facility]ORATORYCLIA [id number] [place] [address] [place] Hemoglobin (Bld) [Mass/Vol] 8.7 g/dL Low 11.5-15.5 [facility] Comment on above: Order Comment: Speci men Type: BLOOD SPECIMENOrdering Facility: [facility] Address: [address] [place] [address] Performed By: #### S TFREV ####[facility] [id number] [place] [address] [place]#### 94966-0 ####[facility] LABORATORYCLIA [id number] [place] [address] [place] Immature granulocytes (Bld) [#/Vol] 0.20 10*3/uL High <0.10 [facility] Comment on above: Order Comment: Speci men Type: BLOOD SPECIMENOrdering Facility: [facility] Address: [address] [place] [address] Performed By: #### S TFREV ####[facility] [id number] [place] [address] [place]#### 51370-9 ####[facility] LABORATORYCLIA [id number] [address] [place] Immature granulocytes/100 WBC (Bld) 1.3 % Normal [facility] Comment on above: Order Comment: Speci men Type: BLOOD SPECIMENOrdering Facility: [facility] Address: [address] [place] [address] Performed By: #### S TFREV ####[facility] [id number] [place] [address] [place]#### 47618-7 ####[facility] LABORATORYCLIA [id number] [place] [address] [place] Lymphocytes (Bld) [#/Vol] 0.56 10*3/uL Low 1.00-4.00 [facility] Comment on above: Order Comment: Speci men Type: BLOOD SPECIMENOrdering Facility: [facility] Address: [facility] [place] [address] Performed By: #### S TFREV ####[facility] [id number] [place] [address] [place]#### 97643-9 ####[facility] LABORATORYCLIA [id number] [place] [address] [place] Lymphocytes/100 WBC (Bld) 3.5 % Normal [facility] Comment on above: Order Comment: Speci men Type: BLOOD SPECIMENOrdering Facility: [facility] Address: [address] [place] [address] Performed By: #### S TFREV ####[facility] [id number] [address] [place]#### 54852-1 ####[facility] LABORATORYCLIA [id number] [address] MCH (RBC) [Entitic mass] 28.3 pg Normal 26.0-34.0 [facility] Comment on above: Order Comment: Speci men Type: BLOOD SPECIMENOrdering Facility: [facility] Address: [address] [place] [address] Performed By: #### S TFREV ####[facility] [id number] [address] [place]#### 46727-1 ####[facility] LABORATORYCLIA [id number] [address] [place] MCHC (RBC) [Mass/Vol] 33.2 g/dL Normal 30.5-36.0 [facility] Comment on above: Order Comment: Speci men Type: BLOOD SPECIMENOrdering Facility: [facility] Address: [address] [place] [address] Performed By: #### S TFREV ####[facility] [id number] [address] [place]#### 24076-3 ####[facility] LABORATORYCLIA [id number] [address] MCV (RBC) [Entitic vol] 85.3 fL Normal 80.0-100.0 [facility] Comment on above: Order Comment: Speci men Type: BLOOD SPECIMENOrdering Facility: [facility] Address: [address] [place] [address] Performed By: #### S TFREV ####[facility] [id number] [place] [address] [place]#### 55109-5 ####[facility] LABORATORYCLIA [id number] [place] [address] [place] Monocytes (Bld) [#/Vol] 0.74 10*3/uL Normal <0.87 [facility] Comment on above: Order Comment: Speci men Type: BLOOD SPECIMENOrdering Facility: [facility] Address: [address] [place] [address] Performed By: #### S TFREV ####[facility] [id number] [place] [address] [place]#### 39888-0 ####[facility] LABORATORYCLIA [id number] [place] [address] [place] Monocytes/100 WBC (Bld) 4.6 % Normal [facility] Comment on above: Order Comment: Speci men Type: BLOOD SPECIMENOrdering Facility: [facility] Address: [address] [place] [address] Performed By: #### S TFREV ####[facility] [id number] [place] [address] [place]#### 90243-5 ####[facility] LABORATORYCLIA [id number] [place] [address] [place] Neutrophils (Bld) [#/Vol] 14.38 10*3/uL High 1.45-7.50 [facility] Comment on above: Order Comment: Speci men Type: BLOOD SPECIMENOrdering Facility: [facility] Address: [address] [place] [address] Performed By: #### S TFREV ####[facility] [id number] [place] [address] [place]#### 22240-3 ####[facility] LABORATORYCLIA [id number] [address] Neutrophils/100 WBC (Bld) 90.3 % Normal [facility] Comment on above: Order Comment: Speci men Type: BLOOD SPECIMENOrdering Facility: [facility] Address: [address] [place] [address] Performed By: #### S TFREV ####[facility] [id number] [place] [address] [place]#### 70781-3 ####[facility] LABORATORYCLIA [id number] [place] [address] [place] Nucleated RBC (Bld) [#/Vol] 10*3/uL Normal <0.01 [facility] Comment on above: Order Comment: Speci men Type: BLOOD SPECIMENOrdering Facility: [facility] Address: [address] [place] [address] Performed By: #### S TFREV ####[facility] [id number] [place] [address] [place]#### 82646-3 ####[facility] LABORATORYCLIA [id number] [address] [place] Nucleated RBC/100 WBC (Bld) [Ratio] 0.0 /100 WBC Normal [facility] Comment on above: Order Comment: Speci men Type: BLOOD SPECIMENOrdering Facility: [facility] Address: [address] [place] [address] Performed By: #### S TFREV ####[facility] [id number] [place] [address] [place]#### 98297-6 ####[facility] LABORATORYCLIA [id number] [place] [address] [place] Platelet mean volume (Bld) [Entitic vol] 8.8 fL Low 9.0-12.7 [facility] Comment on above: Order Comment: Speci men Type: BLOOD SPECIMENOrdering Facility: [facility] Address: [address] [place] [address] Performed By: #### S TFREV ####[facility] [id number] [place] [address] [place]#### 48363-1 ####[facility]ORATORYCLIA [id number] [place] [address] [place] Platelets (Bld) [#/Vol] 512 10*3/uL High 150-400 [facility] Comment on above: Order Comment: Speci men Type: BLOOD SPECIMENOrdering Facility: [facility] Address: [address] [place] [address] Performed By: #### S TFREV ####[facility] [id number] [place] [address] [place]#### 71710-0 ####[facility]ORATORYCLIA [id number] [place] [address] [place] RBC (Bld) [#/Vol] 3.07 10*6/uL Low 3.90-5.[address] [facility] Comment on above: Order Comment: Speci men Type: BLOOD SPECIMENOrdering Facility: [facility] Address: [address] [place] [address] Performed By: #### S TFREV ####[facility] [id number] [place] [address] [place]#### 23230-2 ####[facility]ORATORYCLIA [id number] [place] [address] [place] WBC (Bld) [#/Vol] 15.92 10*3/uL High 3.70-11.00 [facility] Comment on above: Order Comment: Speci men Type: BLOOD SPECIMENOrdering Facility: [facility] Address: [address] [place] [address] Performed By: #### S TFREV ####[facility] [id number] [place] [address] [place]#### 49635-9 ####[facility] LABORATORYCLIA [id number] [place] [address] [facility] [place] CONSULTon 12-04-2024 CONSULT Normal [facility] CONSULT PROGon 12-04-2024 CONSULT PROG Normal [facility] CONSULT PROG Normal [facility] CONSULT PROG Normal [facility] Comprehensive metabolic 2000 panelon 12-04-2024 Albumin [Mass/Vol] 2.5 g/dL Low 3.9-4.9 [facility] Comment on above: Order Comment: Speci men Type: BLOOD SPECIMENOrdering Facility: [facility] Address: [address] [place], [place] [address] Performed By: #### 2 4323-8, 41058-6, 2950-2 ####[facility] LABORATORYCLIA [id number] [address] [place] ALP [Catalytic activity/Vol] 112 U/L Normal 34-123 [facility] Comment on above: Order Comment: Speci men Type: BLOOD SPECIMENOrdering Facility: [facility] Address: [address] [place], [place] [address] Performed By: #### 2 4323-8, 62894-7, 2950-2 ####[facility] LABORATORYCLIA [id number] [address] [place] [facility] ALT [Catalytic activity/Vol] U/L Low 7-38 [facility] Comment on above: Order Comment: Speci men Type: BLOOD SPECIMENOrdering Facility: [facility] Address: [address] [place] [address] Performed By: #### 2 4323-8, 83867-7, 2950-2 ####[facility] LABORATORYCLIA [id number] [place] [id number] [place] [facility] Anion gap [Moles/Vol] 10 mmol/L Normal 8-15 [facility] Comment on above: Order Comment: Speci men Type: BLOOD SPECIMENOrdering Facility: [facility] Address: [address] [place] [address] Performed By: #### 2 4323-8, 54329-8, 2950-2 ####[facility] LABORATORYCLIA [id number] [place] [address] [place] AST [Catalytic activity/Vol] 31 U/L Normal 13-35 [facility] Comment on above: Order Comment: Speci men Type: BLOOD SPECIMENOrdering Facility: [facility] Address: [address] [place] [address] Performed By: #### 2 4323-8, 05218-1, 2950-2 ####[facility] LABORATORYCLIA [id number] [place] [address] [place] Bilirubin [Mass/Vol] mg/dL Low 0.2-1.3 [facility] Comment on above: Order Comment: Speci men Type: BLOOD SPECIMENOrdering Facility: [facility] Address: [address] [place] [address] Performed By: #### 2 4323-8, , 2950-2 ####[facility] LABORATORYCLIA [id number] [place] [address] [place] Calcium [Mass/Vol] 9.7 mg/dL Normal 8.5-10.2 [facility] Comment on above: Order Comment: Speci men Type: BLOOD SPECIMENOrdering Facility: [facility] Address: [address] [place] [address] Performed By: #### 2 4323-8, , 2 ####[facility] LABORATORYCLIA [id number] [place] [address] [place] Chloride [Moles/Vol] 95 mmol/L Low 98-107 [facility] Comment on above: Order Comment: Speci men Type: BLOOD SPECIMENOrdering Facility: [facility] Address: [address] [place] [address] Performed By: #### 2 4323-8, 21663-0, 2950-2 ####[facility] LABORATORYCLIA [id number] [place] [address] [place] CO2 [Moles/Vol] 27 mmol/L Normal 22-30 [facility] Comment on above: Order Comment: Speci men Type: BLOOD SPECIMENOrdering Facility: [facility] Address: [address] [place] [address] [place] [address] Performed By: #### 2 4323-8, 39757-1, 295-2 ####[facility] LABORATORYCLIA [id number] [place] [id number] [place] [facility] Creatinine [Mass/Vol] 0.84 mg/dL Normal 0.58-0.96 [facility] Comment on above: Order Comment: Fan meade Type: BLOOD SPECIMENOrdering Facility: [facility] Address: [address] [place] [address] Performed By: #### 2 4323-8, 76021-8, 2950-2 ####[facility] LABORATORYCLIA [id number] [place] [id number] [facility] Creatinine and Glomerular filtration rate.predicted panel (S/P/Bld) 67 mL/min/1.73m??? Normal >=60 [facility] Comment on above: Order Comment: Fan meade Type: BLOOD SPECIMENOrdering Facility: [facility] Address: [address] [place] [address] Result Comment: Hilda mated Glomerular Filtration Rate [...] actual GFR. Performed By: #### 2 4323-8, 58750-8, 2950-2 ####[facility] LABORATORYCLIA [id number] [place] [id number] [place] [facility] Glucose [Mass/Vol] 60 mg/dL Low 74-99 [facility] Comment on above: Order Comment: Fan meade Type: BLOOD SPECIMENOrdering Facility: [facility] Address: [address] [place] [address] Result Comment: The [place] [employer] (ADA) provides guidance for cutoff [...] Standards of Medical Care in Diabetes 2016, [place] [employer]. Diabetes Care. 2016.39(Suppl 1). Performed By: #### 2 4323-8, , 2950-2 ####[facility] LABORATORYCLIA [id number] [place] [id number] [place] Potassium [Moles/Vol] 4.6 mmol/L Normal 3.7-5.1 [facility] Comment on above: Order Comment: Fan meade Type: BLOOD SPECIMENOrdering Facility: [facility] Address: [address] [place] [address] Performed By: #### 2 4323-8, , 2 ####[facility] LABORATORYCLIA [id number] [place] [address] [place] Protein [Mass/Vol] 5.9 g/dL Low 6.3-8.0 [facility] Comment on above: Order Comment: Fan meade Type: BLOOD SPECIMENOrdering Facility: [facility] Address: [address] [place] [address] Performed By: #### 2 4323-8, , 2950-2 ####[facility] LABORATORYCLIA [id number] [place] [address] [place] Urea nitrogen [Mass/Vol] 37 mg/dL High 06-03 [facility] Comment on above: Order Comment: Fan meade Type: BLOOD SPECIMENOrdering Facility: [facility] Address: [address] [place] [address] Performed By: #### 2 4323-8, , 2950-2 ####[facility] LABORATORYCLIA [id number] [place] [id number] [place] Creatinine Unsp time (U) [Ma ss/Vol]on 12-04-2024 Creatinine (U) [Mass/Vol] 41.7 mg/dL Normal 20.0-300.0 [facility] Comment on above: Order Comment: Speci men Type: URINE SPECIMENOrdering Facility: [facility] Address: [address] [place] [address] Performed By: #### 3 5678-2, 02822-7, 19822-1 ####[facility] [id number] [place] [address] [place] Magnesium SerPl-mCncon 12-04 Magnesium [Mass/Vol] 2.0 mg/dL Normal 1.7-2.3 [facility] Comment on above: Order Comment: Speci men Type: BLOOD SPECIMENOrdering Facility: [facility] Address: [address] [place] [address] Performed By: #### 2 4323-8, 79389-4, 2951-2 ####[facility] LABORATORYCLIA [id number] [place] [address] [place] NUTRITIONon 12-04-2024 NUTRITION Normal [facility] Osmolality Uron 12-04-2024 Osmolality (U) [Osmolality] 412 mosm/kg Normal 50-1200 [facility] Comment on above: Order Comment: Speci men Type: URINE SPECIMENOrdering Facility: [facility] Address: [address] [place] [address] Performed By: #### 2 695-5 ####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 Normal [facility] Comment on above: Order Comment: Speci men Type: BLOOD SPECIMENOrdering Facility: [facility] Address: [address] [place] [address] Performed By: #### S TFREV ####[facility] [id number] [place] [address] [place]#### 53811-9 ####[facility] LABORATORYCLIA [id number] [address] STAFF REVIEW, CBCDIF Normal [facility] Comment on above: Order Comment: Fan meade Type: BLOOD SPECIMENOrdering Facility: [facility] Address: [address] [place] [address] Performed By: #### S TFREV ####[facility] [id number] [facility] [id number]#### 30690-0 ####[facility] LABORATORYCLIA [id number] [address] PT panel Coag (PPP)on 2024 INR Coag (PPP) [Relative time] 1.0 {INR} Normal 0.9-1.3 [facility] Comment on above: Order Comment: Fan meade Type: BLOOD SPECIMENOrdering Facility: [facility] Address: [address] [place] [address] Result Comment: Kendra min K Antagonist (VKA) Therapeutic Range: INR 2 to 3 (Target INR of 2.5)Note: For patients treated with VKA drugs, such as warfarin, the [place] [employer] 2012 Guideline recommends [...] al. Chest 2012, 141:7S-47SNishimura RA, et al. [facility] 2017, 70: 252-289 Performed By: #### 3 4528-0 ####[facility] LABORATORYCLIA [id number] [address] [place] PT Coag (PPP) [Time] 10.6 s Normal 9.7-13.0 [facility] Comment on above: Order Comment: Speci men Type: BLOOD SPECIMENOrdering Facility: [facility] Address: [address] [place] [address] Performed By: #### 3 4528-0 ####[facility] LABORATORYCLIA [id number] [place] [address] [place] Potassium ?Tm Ur-sCncon 11-15 Potassium Unsp time (U) [Moles/Vol] 41.7 mmol/L Normal 10.0-160.0 [facility] Comment on above: Order Comment: Speci men Type: URINE SPECIMENOrdering Facility: [facility] Address: [address] [place] [address] Performed By: #### 3 5678-2, 86459-7, 91139-7 ####[facility] [id number] [place] [address] [place] Sodium ?Tm Ur-sCncon 025 Sodium Unsp time (U) [Moles/Vol] <20 Normal 14-216 [facility] Comment on above: Order Comment: Speci men Type: URINE SPECIMENOrdering Facility: [facility] Address: [address] [place] [address] Performed By: #### 3 5678-2, 17789-1, 42572-2 ####[facility] LAB[facility] [id number] [place] [id number] [place] Sodium SerPl-sCncon 12-04-19 25 Sodium [Moles/Vol] 128 mmol/L Low 136-144 [facility] Comment on above: Order Comment: Speci men Type: BLOOD SPECIMENOrdering Facility: [facility] Address: [address] [place] [address] Performed By: #### 2 951-2 ####[facility] LABORATORYCLIA [id number] [place] [address] [place] Sodium [Moles/Vol] 133 mmol/L Low 136-144 [facility] Comment on above: Order Comment: Speci men Type: BLOOD SPECIMENOrdering Facility: [facility] Address: [address] [place] [address] Performed By: #### 2 951-2 ####[facility] LABORATORYCLIA [id number] [place] [address] [place] Sodium [Moles/Vol] 130 mmol/L Low 136-144 [facility] Comment on above: Order Comment: Speci men Type: BLOOD SPECIMENOrdering Facility: [facility] Address: [address] [place] [address] Performed By: #### 2 951-2 ####[facility] LABORATORYCLIA [id number] [place] [address] [place] Sodium [Moles/Vol] 132 mmol/L Low 136-144 [facility] Comment on above: Order Comment: Speci men Type: BLOOD SPECIMENOrdering Facility: [facility] Address: [address] [place] [address] Performed By: #### 2 4323-8, 58020-6, 2951-2 ####[facility] LABORATORYCLIA [id number] [place] [address] [place] Sodium [Moles/Vol] 132 mmol/L Low 136-144 [facility] Comment on above: Order Comment: Speci men Type: BLOOD SPECIMENOrdering Facility: [facility] Address: [address] [place] [address] Performed By: #### 2 951-2 ####[facility] LABORATORYCLIA [id number] [place] [address] [place] THERAPY NTon 12-04-2024 THERAPY NT Normal [facility] ALLIED HEALTHon 12-03-2024 ALLIED HEALTH [facility] RUBEN BY IFA SCREENon 12-03-19 Nuclear Ab pattern (S) [Interp] Nuclear homogeneous Normal [facility] Comment on above: Order Comment: Speci men Type: BLOOD SPECIMENOrdering Facility: [facility] Address: [address] [place] [address] Performed By: #### A NAIFS ####[facility] LABCL[facility] [id number] [facility] [id number] [place] [address] [place] Nuclear Ab Ql (S) Positive Abnormal Negative [facility] Comment on above: Order Comment: Speci halina Type: BLOOD SPECIMENOrdering Facility: [facility] Address: [address] [place] [address] Result Comment: Anti -nuclear antibody test is used as an aid in diagnosis of systemic autoimmune diseases. Where positive and clinically warranted, follow-up using disease-specific testing is recommended. Low positive titers are not uncommon with advanced age, certain chronic infections, and malignancies among others.Test methodology: Indirect fluorescence immunoassay (IFA) using HEp-2 cells.1:160 Performed By: #### A NAIFS ####[facility] [id number] [facility] [id number] [place] [address] [place] CASE MANAGEMon 12-03-2024 CASE MANAGEM Normal [facility] CBC W Auto Differential pane l (Bld)on 12-03-2024 Basophils (Bld) [#/Vol] 0.06 10*3/uL Normal <0.11 [facility] Comment on above: Order Comment: Speci men Type: BLOOD SPECIMENOrdering Facility: [facility] Address: [address] [place] [address] Performed By: #### 5 7021-8 ####[facility] LABORATORYCLIA [id number] [address] [place] Basophils/100 WBC (Bld) 0.3 % Normal [facility] Comment on above: Order Comment: Speci halina Type: BLOOD SPECIMENOrdering Facility: [facility] Address: [address] [place] [address] Performed By: #### 5 7021-8 ####[facility] LABORATORYCLIA [id number] [address] [place] [facility] Differential cell count method Nom (Bld) Auto Normal [facility] Comment on above: Order Comment: Speci men Type: BLOOD SPECIMENOrdering Facility: [facility] Address: [address] [place] [address] Performed By: #### 5 7021-8 ####[facility] LABORATORYCLIA [id number] [address] [place] Eosinophils (Bld) [#/Vol] 0.18 10*3/uL Normal <0.46 [facility] Comment on above: Order Comment: Speci men Type: BLOOD SPECIMENOrdering Facility: [facility] Address: [address] [place] [address] Performed By: #### 5 7021-8 ####VILLARREAL LABORATORYCLIA [id number] [address] [place] [facility] Eosinophils/100 WBC (Bld) 0.9 % Normal [facility] Comment on above: Order Comment: Speci men Type: BLOOD SPECIMENOrdering Facility: [facility] Address: [address] [place] [address] Performed By: #### 5 7021-8 ####VILLARREAL LABORATORYCLIA [id number] [address] Erythrocyte distribution width (RBC) [Ratio] 15.6 % High 11.5-15.0 [facility] Comment on above: Order Comment: Speci men Type: BLOOD SPECIMENOrdering Facility: [facility] Address: [address] [place] [address] Performed By: #### 5 7021-8 ####VILLARREAL LABORATORYCLIA [id number] [address] Hematocrit (Bld) [Volume fraction] 26.0 % Low 36.0-46.0 [facility] Comment on above: Order Comment: Speci men Type: BLOOD SPECIMENOrdering Facility: [facility] Address: [address] [place] [address] Performed By: #### 5 7021-8 ####VILLARREAL LABORATORYCLIA [id number] [address] Hemoglobin (Bld) [Mass/Vol] 8.5 g/dL Low 11.5-15.5 [facility] Comment on above: Order Comment: Speci men Type: BLOOD SPECIMENOrdering Facility: [facility] Address: [address] [place] [address] Performed By: #### 5 7021-8 ####VILLARREAL LABORATORYCLIA [id number] [place] [address] [place] Immature granulocytes (Bld) [#/Vol] 0.29 10*3/uL High <0.10 [facility] Comment on above: Order Comment: Speci men Type: BLOOD SPECIMENOrdering Facility: [facility] Address: [address] [place] [address] Performed By: #### 5 7021-8 ####VILLARREAL LABORATORYCLIA [id number] [address] Immature granulocytes/100 WBC (Bld) 1.5 % Normal [facility] Comment on above: Order Comment: Speci men Type: BLOOD SPECIMENOrdering Facility: [facility] Address: [address] [place] [address] Performed By: #### 5 7021-8 ####VILLARREAL LABORATORYCLIA [id number] [address] Lymphocytes (Bld) [#/Vol] 0.75 10*3/uL Low 1.00-4.00 [facility] Comment on above: Order Comment: Speci men Type: BLOOD SPECIMENOrdering Facility: [facility] Address: [address] [place] [address] Performed By: #### 5 7021-8 ####VILLARREAL LABORATORYCLIA [id number] [address] Lymphocytes/100 WBC (Bld) 3.8 % Normal [facility] Comment on above: Order Comment: Speci men Type: BLOOD SPECIMENOrdering Facility: [facility] Address: [address] [place] [address] Performed By: #### 5 7021-8 ####VILLARREAL LABORATORYCLIA [id number] [address] MCH (RBC) [Entitic mass] 28.5 pg Normal 26.0-34.0 [facility] Comment on above: Order Comment: Speci men Type: BLOOD SPECIMENOrdering Facility: [facility] Address: [address] [place] [address] Performed By: #### 5 7021-8 ####VILLARREAL LABORATORYCLIA [id number] [place] [address] [place] MCHC (RBC) [Mass/Vol] 32.7 g/dL Normal 30.5-36.0 [facility] Comment on above: Order Comment: Speci men Type: BLOOD SPECIMENOrdering Facility: [facility] Address: [address] [place] [address] [place] [address] Performed By: #### 5 7021-8 ####VILLARREAL LABORATORYCLIA [id number] [address] [place] MCV (RBC) [Entitic vol] 87.2 fL Normal 80.0-100.0 [facility] Comment on above: Order Comment: Speci men Type: BLOOD SPECIMENOrdering Facility: [facility] Address: [address] [place] [address] Performed By: #### 5 7021-8 ####VILLARREAL LABORATORYCLIA [id number] [address] [place] Monocytes (Bld) [#/Vol] 0.93 10*3/uL High <0.87 [facility] Comment on above: Order Comment: Speci men Type: BLOOD SPECIMENOrdering Facility: [facility] Address: [address] [place] [address] Performed By: #### 5 7021-8 ####VILLARREAL LABORATORYCLIA [id number] [address] Monocytes/100 WBC (Bld) 4.7 % Normal [facility] Comment on above: Order Comment: Speci men Type: BLOOD SPECIMENOrdering Facility: [facility] Address: [address] [place] [address] Performed By: #### 5 7021-8 ####VILLARREAL LABORATORYCLIA [id number] [place] [address] [place] Neutrophils (Bld) [#/Vol] 17.78 10*3/uL High 1.45-7.50 [facility] Comment on above: Order Comment: Speci men Type: BLOOD SPECIMENOrdering Facility: [facility] Address: [address] [place] [address] Performed By: #### 5 7021-8 ####VILLARREAL LABORATORYCLIA [id number] [address] [place] Neutrophils/100 WBC (Bld) 88.8 % Normal [facility] Comment on above: Order Comment: Speci men Type: BLOOD SPECIMENOrdering Facility: [facility] Address: [address] [place] [address] Performed By: #### 5 7021-8 ####VILLARREAL LABORATORYCLIA [id number] [place] [address] [place] Nucleated RBC (Bld) [#/Vol] 10*3/uL Normal <0.01 [facility] Comment on above: Order Comment: Speci men Type: BLOOD SPECIMENOrdering Facility: [facility] Address: [address] [place] [address] Performed By: #### 5 7021-8 ####VILLARREAL LABORATORYCLIA [id number] [address] [place] Nucleated RBC/100 WBC (Bld) [Ratio] 0.0 /100 WBC Normal [facility] Comment on above: Order Comment: Speci men Type: BLOOD SPECIMENOrdering Facility: [facility] Address: [address] [place] [address] Performed By: #### 5 7021-8 ####VILLARREAL LABORATORYCLIA [id number] [place] [address] [place] Platelet mean volume (Bld) [Entitic vol] 8.6 fL Low 9.0-12.7 [facility] Comment on above: Order Comment: Speci men Type: BLOOD SPECIMENOrdering Facility: [facility] Address: [address] [place] [address] Performed By: #### 5 7021-8 ####VILLARREAL LABORATORYCLIA [id number] [place] [address] [place] Platelets (Bld) [#/Vol] 442 10*3/uL High 150-400 [facility] Comment on above: Order Comment: Speci men Type: BLOOD SPECIMENOrdering Facility: [facility] Address: [address] [place] [address] Performed By: #### 5 7021-8 ####VILLARREAL LABORATORYCLIA [id number] [place] [address] [place] RBC (Bld) [#/Vol] 2.98 10*6/uL Low 3.90-5.[address] [facility] Comment on above: Order Comment: Speci men Type: BLOOD SPECIMENOrdering Facility: [facility] Address: [address] [place] [address] Performed By: #### 5 7021-8 ####G[facility] LABORATORYCLIA [id number] [place] [address] [place] WBC (Bld) [#/Vol] 19.99 10*3/uL High 3.70-11.00 [facility] Comment on above: Order Comment: Speci men Type: BLOOD SPECIMENOrdering Facility: [facility] Address: [address] [place] [address] Performed By: #### 5 7021-8 ####GREELEY LABORATORYCLIA [id number] [address] [place] CONSULTon 12-03-2024 CONSULT Normal [facility] CONSULT Normal [facility] CONSULT PROGon 12-03-2024 CONSULT PROG Normal [facility] CONSULT PROG [facility] CONSULT PROG [facility] CRP SerPl-mCncon 12-03-2024 CRP [Mass/Vol] 20.0 mg/dL High <0.9 [facility] Comment on above: Order Comment: Speci men Type: BLOOD SPECIMENOrdering Facility: [facility] Address: [address] [place] [address] Performed By: #### 1 988-5, 79459-4, 73053-6 ####GREELEY LABORATORYCLIA [id number] [place] [address] [place] CHEST WO IVCONon 12-03-19 CT CHEST WO IVCON Invalid Interpretation Code [facility] Comprehensive metabolic 2000 panelon 12-03-2024 Albumin [Mass/Vol] 2.5 g/dL Low 3.9-4.9 [facility] Comment on above: Order Comment: Speci men Type: BLOOD SPECIMENOrdering Facility: [facility] Address: [address] [place] [address] Performed By: #### 1 988-5, 59400-3, 16882-6 ####VILLARREAL LABORATORYCLIA [id number] [place] [address] [place] ALP [Catalytic activity/Vol] 93 U/L Normal 34-123 [facility] Comment on above: Order Comment: Speci men Type: BLOOD SPECIMENOrdering Facility: [facility] Address: [address] [place] [address] Performed By: #### 1 988-5, 62488-2, ####VILLARREAL LABORATORYCLIA [id number] [place] [address] [place] ALT [Catalytic activity/Vol] U/L Low 7-38 [facility] Comment on above: Order Comment: Speci men Type: BLOOD SPECIMENOrdering Facility: [facility] Address: [address] [place] [address] Performed By: #### 1 988-5, , ####VILLARREAL LABORATORYCLIA [id number] [place] [address] [place] Anion gap [Moles/Vol] 10 mmol/L Normal 8-15 [facility] Comment on above: Order Comment: Speci men Type: BLOOD SPECIMENOrdering Facility: [facility] Address: [address] [place] [address] Performed By: #### 1 988-5, 03429-5, ####VILLARREAL LABORATORYCLIA [id number] [place] [address] [place] AST [Catalytic activity/Vol] 15 U/L Normal 13-35 [facility] Comment on above: Order Comment: Speci men Type: BLOOD SPECIMENOrdering Facility: [facility] Address: [address] [place] [address] Performed By: #### 1 988-5, 16360-8, 16109-0 ####VLILARREAL LABORATORYCLIA [id number] [place] [address] [place] Bilirubin [Mass/Vol] 0.2 mg/dL Normal 0.2-1.3 [facility] Comment on above: Order Comment: Speci men Type: BLOOD SPECIMENOrdering Facility: [facility] Address: [address] [place] [address] Performed By: #### 1 988-5, , ####VILLARREAL LABORATORYCLIA [id number] [place] [address] [place] Calcium [Mass/Vol] 9.2 mg/dL Normal 8.5-10.2 [facility] Comment on above: Order Comment: Speci men Type: BLOOD SPECIMENOrdering Facility: [facility] Address: [address] [place] [address] Performed By: #### 1 988-5, , ####VILLARREAL LABORATORYCLIA [id number] [place] [address] [place] Chloride [Moles/Vol] 94 mmol/L Low 98-107 [facility] Comment on above: Order Comment: Speci men Type: BLOOD SPECIMENOrdering Facility: [facility] Address: [address] [place] [address] Performed By: #### 1 988-5, , ####VILLARREAL LABORATORYCLIA [id number] [place] [address] [place] CO2 [Moles/Vol] 24 mmol/L Normal 22-30 [facility] Comment on above: Order Comment: Speci men Type: BLOOD SPECIMENOrdering Facility: [facility] Address: [address] [place] [address] Performed By: #### 1 988-5, , ####VILLARREAL LABORATORYCLIA [id number] [place] [address] [place] Creatinine [Mass/Vol] 0.92 mg/dL Normal 0.58-0.96 [facility] Comment on above: Order Comment: Speci men Type: BLOOD SPECIMENOrdering Facility: [facility] Address: [address] [place] [address] Performed By: #### 1 988-5, , ####VILLARREAL LABORATORYCLIA [id number] [place] [id number] [place] Creatinine and Glomerular filtration rate.predicted panel (S/P/Bld) 60 mL/min/1.73m??? Normal >=60 [facility] Comment on above: Order Comment: Fan meade Type: BLOOD SPECIMENOrdering Facility: [facility] Address: [address] [place] [address] Result Comment: Hilda mated Glomerular Filtration Rate [...] actual GFR. Performed By: #### 1 988-5, 65921-0, ####G[facility] LABORATORYCLIA [id number] [place] [id number] [place] Glucose [Mass/Vol] 246 mg/dL High 74-99 [facility] Comment on above: Order Comment: Fan meade Type: BLOOD SPECIMENOrdering Facility: [facility] Address: [address] [place] [address] Result Comment: The [place] [employer] (ADA) provides guidance for cutoff [...] Standards of Medical Care in Diabetes 2016, [place] [employer]. Diabetes Care. 2016.39(Suppl 1). Performed By: #### 1 988-5, 62982-5, ####GREELEY LABORATORYCLIA [id number] [place] [address] [place] Potassium [Moles/Vol] 4.6 mmol/L Normal 3.7-5.1 [facility] Comment on above: Order Comment: Speci men Type: BLOOD SPECIMENOrdering Facility: [facility] Address: [address] [place] [address] Performed By: #### 1 988-5, 59436-3, ####VILLARREAL LABORATORYCLIA [id number] [place] [address] [place] Protein [Mass/Vol] 5.7 g/dL Low 6.3-8.0 [facility] Comment on above: Order Comment: Speci men Type: BLOOD SPECIMENOrdering Facility: [facility] Address: [address] [place] [address] Performed By: #### 1 988-5, , ####VILLARREAL LABORATORYCLIA [id number] [address] [place] Sodium [Moles/Vol] 128 mmol/L Low 136-144 [facility] Comment on above: Order Comment: Speci men Type: BLOOD SPECIMENOrdering Facility: [facility] Address: [address] [place] [address] Performed By: #### 1 988-5, , ####VILLARREAL LABORATORYCLIA [id number] [address] [place] Urea nitrogen [Mass/Vol] 37 mg/dL High 7-21 [facility] Comment on above: Order Comment: Speci men Type: BLOOD SPECIMENOrdering Facility: [facility] Address: [address] [place] [address] Performed By: #### 1 988-5, 45346-3, 57223-2 ####VILLARREAL LABORATORYCLIA [id number] [address] [place] Cyclic citrullinated peptide IgG Qnon 12-03-2024 CCP ANTIBODY IGG QUALITATIVE Negative Normal Negative [facility] Comment on above: Order Comment: Speci men Type: BLOOD SPECIMENOrdering Facility: [facility] Address: [address] [place] [address] Performed By: #### 3 3935-8 ####[facility] LABCLIA [id number] [address] [address] [place] ESR Westergren method (Bld) [Velocity]on 12-03-2024 ESR (Bld) [Velocity] 124 mm/h High 0-20 [facility] Comment on above: Order Comment: Speci men Type: BLOOD SPECIMENOrdering Facility: [facility] Address: [address] [place] [address] Performed By: #### 4 537-7 ####[facility] LABCLIA [id number] [place] [address] [place] Magnesium SerPl-mCncon 12-03 Magnesium [Mass/Vol] 1.8 mg/dL Normal 1.7-2.3 [facility] Comment on above: Order Comment: Speci men Type: BLOOD SPECIMENOrdering Facility: [facility] Address: [address] [place] [address] Performed By: #### 1 988-5, 10804-0, 66103-9 ####G[facility] LABORATORYCLIA [id number] [place] [id number] [place] Rheumatoid fact SerPl-aCncon 12-03-2024 Rheumatoid factor Qn 19 [IU]/mL High <16 [facility] Comment on above: Order Comment: Speci men Type: BLOOD SPECIMENOrdering Facility: [facility] Address: [address] [place] [address] Performed By: #### 1 1572-5 ####[facility] LABIA [id number] [place] [id number] [place] Sodium SerPl-sCncon 12-03-19 Sodium [Moles/Vol] 129 mmol/L Low 136-144 [facility] Comment on above: Order Comment: Speci men Type: BLOOD SPECIMENOrdering Facility: [facility] Address: [address] [place] [address] Performed By: #### 2 951-2 ####G[facility] LABORATORYCLIA [id number] [place] [address] [place] Sodium [Moles/Vol] 130 mmol/L Low 136-144 [facility] Comment on above: Order Comment: Speci men Type: BLOOD SPECIMENOrdering Facility: [facility] Address: [address] [place] [address] Performed By: #### 2 951-2 ####VILLARREAL LABORATORYCLIA [id number] [address] STATES OF [facility] Sodium [Moles/Vol] 128 mmol/L Low 136-144 [facility] Comment on above: Order Comment: Speci men Type: BLOOD SPECIMENOrdering Facility: [facility] Address: [address] [place] [address] Performed By: #### 2 951-2 ####G[facility] LABORATORYCLIA [id number] [address] [place] THERAPY NTon 12-03-2024 THERAPY NT Normal [facility] THERAPY NT Normal [facility] THERAPY NT Normal [facility] cCP IgG SerPl-aCncon 025 Cyclic citrullinated peptide IgG Qn <15 Normal <20 [facility] Comment on above: Order Comment: Speci men Type: BLOOD SPECIMENOrdering Facility: [facility] Address: [address] [place] [address] Performed By: #### 3 3935-8 ####[facility] LABCLIA [id number] [address] [place] 25([place])D3 SerPl-mCncon 2024 25-hydroxyvitamin D3 [Mass/Vol] 13.4 ng/mL Low 31.0-80.0 [facility] Comment on above: Order Comment: Speci men Type: BLOOD SPECIMENOrdering Facility: [facility] Address: [address] [place] [address] Result Comment: Clas sification of 25 [place] Vitamin D status:Deficiency/Insufficiency: < or = 30 ng/ml.Sufficiency/Optimal Levels: 31-80 ng/mLToxicity: > 100 ng/mL.Test performed by chemiluminescent immunoassay. Performed By: #### 1 989-3, 03420-6, 47230-1, [facility], 6969-0 ####[facility] LABCLIA [id number] [facility] [id number] [address] [place] ALLIED HEALTHon 12-02-2024 ALLIED HEALTH Normal [facility] ALLIED HEALTH Normal [facility] ARTERIAL BLOOD GASESon 12-02 Base excess Calc (Bld) [Moles/Vol] 4 mmol/L High 0-2 [facility] Comment on above: Order Comment: Speci men Type: ARTERIAL BLOOD SPECIMENOrdering Facility: [facility] Address: [address] [place] [address] Performed By: #### A LLBG ####[facility] RESPIRATORYCLIA [id number] [facility] [id number] [address] [address] Carboxyhemoglobin (BldA) [Mass fraction] 1.4 % Normal 0.0-2.0 [facility] Comment on above: Order Comment: Speci men Type: ARTERIAL BLOOD SPECIMENOrdering Facility: [facility] Address: [address] [place] [address] Result Comment: Carb oxyhemoglobin Reference Range for Smokers: 2.0-8.0% Performed By: #### A LLBG ####[facility] RESPIRATORYCLIA [id number] [facility] [id number] [address] [address] CO2 (Bld) [Partial pressure] 41 mm Hg Normal 36-46 [facility] Comment on above: Order Comment: Speci men Type: ARTERIAL BLOOD SPECIMENOrdering Facility: [facility] Address: [address] [place] [address] Performed By: #### A LLBG ####[facility] RESPIRATORYIA [id number] [facility] [id number] [address] [address] CO2 adjusted to patient's actual temperature (Bld) [Partial pressure] Normal [facility] Comment on above: Order Comment: Speci men Type: ARTERIAL BLOOD SPECIMENOrdering Facility: [facility] Address: [address] [place] [address] Performed By: #### A LLBG ####[facility] RESPIRATORYCLIA [id number] [facility] RESPIRAT[facility] [id number] [address] [address] HCO3 (Bld) [Moles/Vol] 28 mmol/L High 22-26 [facility] Comment on above: Order Comment: Speci men Type: ARTERIAL BLOOD SPECIMENOrdering Facility: [facility] Address: [address] [place] [address] Performed By: #### A LLBG ####[facility] RESPIRATORYVERMONT [facility] [id number] [facility] RESPIRAT[facility] [id number] [address] [address] Hemoglobin (Bld) [Mass/Vol] 10.3 g/dL Low 11.5-15.5 [facility] Comment on above: Order Comment: Speci men Type: ARTERIAL BLOOD SPECIMENOrdering Facility: [facility] Address: [address] [place] [id number] Performed By: #### A LLBG ####[facility] RESPIRATORYVERMONT PSY[facility]ATR[facility] [id number] [facility]OS[facility] RESPIRAT[facility] [id number] [address] [address] Lactate [Moles/Vol] 1.0 mmol/L Normal 0.5-2.[address] [facility] Comment on above: Order Comment: Speci men Type: ARTERIAL BLOOD SPECIMENOrdering Facility: [facility] Address: [address] [place] [address] Performed By: #### A LLBG ####[facility] [id number] [facility]OSP[facility] RESPIRAT[facility] [id number] [address] [address] Methemoglobin (Bld) [Mass fraction] % Normal 0.0-1.5 [facility] Comment on above: Order Comment: Speci men Type: ARTERIAL BLOOD SPECIMENOrdering Facility: [facility] Address: [address] [place] [address] Performed By: #### A LLBG ####[facility] [id number] [facility]OS[facility] RESPIRATORY [id number] [address] [address] O2 THERAPY RA=Room Air Normal [facility] Comment on above: Order Comment: Speci men Type: ARTERIAL BLOOD SPECIMENOrdering Facility: [facility] Address: [address] [place] [address] Performed By: #### A LLBG ####[facility]ATORYIA [id number] [id number] [address] [address] Oxygen (Bld) [Partial pressure] 61 mm Hg Low 85-95 [facility] Comment on above: Order Comment: Speci men Type: ARTERIAL BLOOD SPECIMENOrdering Facility: [facility] Address: [address] [place] [address] Performed By: #### A LLBG ####[place]ORY[facility] [id number] [facility] [id number] [address] [address] Oxygen adjusted to patient's actual temperature (Bld) [Partial pressure] Normal [facility] Comment on above: Order Comment: Speci men Type: ARTERIAL BLOOD SPECIMENOrdering Facility: [facility] Address: [address] [place] [address] Performed By: #### A LLBG ####[facility] [id number] [facility] RESPIRATORY [id number] [address] [address] Oxyhemoglobin (BldA) [Mass fraction] 90 % Low 95-98 [facility] Comment on above: Order Comment: Speci men Type: ARTERIAL BLOOD SPECIMENOrdering Facility: [facility] Address: [address] [place] [address] Performed By: #### A LLBG ####[facility]ORYVER[facility] [id number] [facility]OSP[facility] RESPIRATORY [id number] [address] [address] pH (Bld) 7.45 [pH] Normal 7.35-7.45 [facility] Comment on above: Order Comment: Speci men Type: ARTERIAL BLOOD SPECIMENOrdering Facility: [facility] Address: [address] [place] [address] Performed By: #### A LLBG ####[facility]ATORYVERM[facility] [id number] [facility] RESPIRATORY [id number] [address] [address] pH adjusted to patient's actual temperature (Bld) Normal [facility] Comment on above: Order Comment: Speci men Type: ARTERIAL BLOOD SPECIMENOrdering Facility: [facility] Address: [address] [place] [address] Performed By: #### A LLBG ####[facility] RESPIRATORYIA [id number] [facility]OSP[facility] RESPIRATORY [id number] [address] [address] PO2 / FIO2 RATIO 290 mmHg Low >300 [facility] Comment on above: Order Comment: Speci men Type: ARTERIAL BLOOD SPECIMENOrdering Facility: [facility] Address: [address] [place] [address] Performed By: #### A LLBG ####[facility]ORYVER[facility] [id number] [facility]OSP[facility] RESPIRATORY [id number] [address] [address] Potassium [Moles/Vol] 4.0 mmol/L Normal 3.5-5.0 [facility] Comment on above: Order Comment: Speci men Type: ARTERIAL BLOOD SPECIMENOrdering Facility: [facility] Address: [address] [place] [address] Performed By: #### A LLBG ####[facility]ORYVER[facility] [id number] [facility] RESPIRATORY [id number] [address] [address] Ammonia Plas-sCncon 12-02-19 25 Ammonia (P) [Moles/Vol] 14 umol/L Normal 11-51 [facility] Comment on above: Order Comment: Speci men Type: BLOOD SPECIMENOrdering Facility: [facility] Address: [address] [place] [address] Performed By: #### 1 6362-6 ####[facility] LABORATORYCLIA [id number] [place], [place] [address] [place] [address] OF [facility] CBC W Auto Differential pane l (Bld)on 12-02-2024 Basophils (Bld) [#/Vol] 0.06 10*3/uL Normal <0.11 [facility] Comment on above: Order Comment: Speci men Type: BLOOD SPECIMENOrdering Facility: [facility] Address: [address] [place] [address] Performed By: #### 5 7021-8 ####[facility] LABORATORYCLIA [id number] [place] [address] [place] Basophils/100 WBC (Bld) 0.3 % Normal [facility] Comment on above: Order Comment: Speci men Type: BLOOD SPECIMENOrdering Facility: [facility] Address: [address] [place] [address] Performed By: #### 5 7021-8 ####VILLARREAL LABORATORYCLIA [id number] [address] [place] Differential cell count method Nom (Bld) Auto Normal [facility] Comment on above: Order Comment: Speci men Type: BLOOD SPECIMENOrdering Facility: [facility] Address: [address] [place] [address] Performed By: #### 5 7021-8 ####VILLARREAL LABORATORYCLIA [id number] [place] [address] [place] Eosinophils (Bld) [#/Vol] 0.24 10*3/uL Normal <0.46 [facility] Comment on above: Order Comment: Speci men Type: BLOOD SPECIMENOrdering Facility: [facility] Address: [address] [place] [address] Performed By: #### 5 7021-8 ####VILLARREAL LABORATORYCLIA [id number] [address] Eosinophils/100 WBC (Bld) 1.2 % Normal [facility] Comment on above: Order Comment: Speci men Type: BLOOD SPECIMENOrdering Facility: [facility] Address: [address] [place] [address] Performed By: #### 5 7021-8 ####VILLARREAL LABORATORYCLIA [id number] [address] [place] Erythrocyte distribution width (RBC) [Ratio] 15.6 % High 11.5-15.0 [facility] Comment on above: Order Comment: Speci men Type: BLOOD SPECIMENOrdering Facility: [facility] Address: [address] [place] [address] Performed By: #### 5 7021-8 ####VILLARREAL LABORATORYCLIA [id number] [address] [place] Hematocrit (Bld) [Volume fraction] 27.1 % Low 36.0-46.0 [facility] Comment on above: Order Comment: Speci men Type: BLOOD SPECIMENOrdering Facility: [facility] Address: [address] [place] [address] Performed By: #### 5 7021-8 ####VILLARREAL LABORATORYCLIA [id number] [address] [place] Hemoglobin (Bld) [Mass/Vol] 9.0 g/dL Low 11.5-15.5 [facility] Comment on above: Order Comment: Speci men Type: BLOOD SPECIMENOrdering Facility: [facility] Address: [address] [place] [address] Performed By: #### 5 7021-8 ####VILLARREAL LABORATORYCLIA [id number] [place] [address] [place] Immature granulocytes (Bld) [#/Vol] 0.23 10*3/uL High <0.10 [facility] Comment on above: Order Comment: Speci men Type: BLOOD SPECIMENOrdering Facility: [facility] Address: [address] [place] [address] Performed By: #### 5 7021-8 ####VILLARREAL LABORATORYCLIA [id number] [address] [place] Immature granulocytes/100 WBC (Bld) 1.2 % Normal [facility] Comment on above: Order Comment: Speci men Type: BLOOD SPECIMENOrdering Facility: [facility] Address: [address] [place] [address] Performed By: #### 5 7021-8 ####VILLARREAL LABORATORYCLIA [id number] [place] [address] [place] Lymphocytes (Bld) [#/Vol] 0.92 10*3/uL Low 1.00-4.00 [facility] Comment on above: Order Comment: Speci men Type: BLOOD SPECIMENOrdering Facility: [facility] Address: [address] [place] [address] Performed By: #### 5 7021-8 ####VILLARREAL LABORATORYCLIA [id number] [address] [place] Lymphocytes/100 WBC (Bld) 4.7 % Normal [facility] Comment on above: Order Comment: Speci men Type: BLOOD SPECIMENOrdering Facility: [facility] Address: [address] [place] [address] Performed By: #### 5 7021-8 ####VILLARREAL LABORATORYCLIA [id number] [place] [address] [place] MCH (RBC) [Entitic mass] 28.2 pg Normal 26.0-34.0 [facility] Comment on above: Order Comment: Speci men Type: BLOOD SPECIMENOrdering Facility: [facility] Address: [address] [place] [address] Performed By: #### 5 7021-8 ####VILLARREAL LABORATORYCLIA [id number] [address] [place] MCHC (RBC) [Mass/Vol] 33.2 g/dL Normal 30.5-36.0 [facility] Comment on above: Order Comment: Speci men Type: BLOOD SPECIMENOrdering Facility: [facility] Address: [address] [place] [address] Performed By: #### 5 7021-8 ####VILLARREAL LABORATORYCLIA [id number] [address] MCV (RBC) [Entitic vol] 85.0 fL Normal 80.0-100.0 [facility] Comment on above: Order Comment: Speci men Type: BLOOD SPECIMENOrdering Facility: [facility] Address: [address] [place] [address] Performed By: #### 5 7021-8 ####VILLARREAL LABORATORYCLIA [id number] [address] [place] Monocytes (Bld) [#/Vol] 1.07 10*3/uL High <0.87 [facility] Comment on above: Order Comment: Speci men Type: BLOOD SPECIMENOrdering Facility: [facility] Address: [address] [place] [address] Performed By: #### 5 7021-8 ####VILLARREAL LABORATORYCLIA [id number] [place] [address] [place] Monocytes/100 WBC (Bld) 5.4 % Normal [facility] Comment on above: Order Comment: Speci men Type: BLOOD SPECIMENOrdering Facility: [facility] Address: [address] [place] [address] Performed By: #### 5 7021-8 ####VILL[facility] LABORATORYCLIA [id number] [place] [address] [place] Neutrophils (Bld) [#/Vol] 17.12 10*3/uL High 1.45-7.50 [facility] Comment on above: Order Comment: Speci men Type: BLOOD SPECIMENOrdering Facility: [facility] Address: [address] [place] [address] Performed By: #### 5 7021-8 ####VILLARREAL LABORATORYCLIA [id number] [address] [place] Neutrophils/100 WBC (Bld) 87.2 % Normal [facility] Comment on above: Order Comment: Speci men Type: BLOOD SPECIMENOrdering Facility: [facility] Address: [address] [place] [address] Performed By: #### 5 7021-8 ####VILLAR[facility] LABORATORYCLIA [id number] [place] [address] [place] Nucleated RBC (Bld) [#/Vol] 10*3/uL Normal <0.01 [facility] Comment on above: Order Comment: Speci men Type: BLOOD SPECIMENOrdering Facility: [facility] Address: [address] [place] [address] Performed By: #### 5 7021-8 ####VILLAR[facility] LABORATORYCLIA [id number] [place] [address] [place] Nucleated RBC/100 WBC (Bld) [Ratio] 0.0 /100 WBC Normal [facility] Comment on above: Order Comment: Speci men Type: BLOOD SPECIMENOrdering Facility: [facility] Address: [address] [place] [address] Performed By: #### 5 7021-8 ####VILLAR[facility]AL LABORATORYCLIA [id number] [address] Platelet mean volume (Bld) [Entitic vol] 8.8 fL Low 9.0-12.7 [facility] Comment on above: Order Comment: Speci men Type: BLOOD SPECIMENOrdering Facility: [facility] Address: [address] [place] [address] Performed By: #### 5 7021-8 ####[facility] LABORATORYCLIA [id number] [address] [place] Platelets (Bld) [#/Vol] 439 10*3/uL High 150-400 [facility] Comment on above: Order Comment: Speci men Type: BLOOD SPECIMENOrdering Facility: [facility] Address: [address] [place] [address] Performed By: #### 5 7021-8 ####[facility] LABORATORYCLIA [id number] [place] [address] [place] RBC (Bld) [#/Vol] 3.19 10*6/uL Low 3.90-5.[address] [facility] Comment on above: Order Comment: Speci men Type: BLOOD SPECIMENOrdering Facility: [facility] Address: [address] [place] [address] Performed By: #### 5 7021-8 ####[facility] LABORATORYCLIA [id number] [address] WBC (Bld) [#/Vol] 19.64 10*3/uL High 3.70-11.00 [facility] Comment on above: Order Comment: Speci men Type: BLOOD SPECIMENOrdering Facility: [facility] Address: [address] [place] [address] Performed By: #### 5 7021-8 ####[facility] LABORATORYCLIA [id number] [address] CK SerPl-cCncon 12-02-2024 CK [Catalytic activity/Vol] 48 U/L Normal 42-196 [facility] Comment on above: Order Comment: Speci men Type: BLOOD SPECIMENOrdering Facility: [facility] Address: [address] [place], [place] [address] [id number] Performed By: #### 2 951-2, 2157-6, 3084-1 ####VILLAR[facility]AL LABORATORYCLIA [id number] [address] CONSULT PROGon 12-02-2024 CONSULT PROG Normal [facility] CRP SerPl-mCncon 12-02-2024 CRP [Mass/Vol] 14.2 mg/dL High <0.9 [facility] Comment on above: Order Comment: Speci men Type: BLOOD SPECIMENOrdering Facility: [facility] Address: [address] [place] [address] [place] [id number] Performed By: #### 3 084-1, , , 1988-03 ####VILLARREAL LABORATORYCLIA [id number] [address] OF [facility] Comprehensive metabolic 2000 panelon 12-02-2024 Albumin [Mass/Vol] 2.3 g/dL Low 3.9-4.9 [facility] Comment on above: Order Comment: Speci men Type: BLOOD SPECIMENOrdering Facility: [facility] Address: [address] [place] [address] [place] [id number] Performed By: #### 3 084-1, , , 1988-03 ####VILLARREAL LABORATORYCLIA [id number] [address] STATES OF [facility] ALP [Catalytic activity/Vol] 94 U/L Normal 34-123 [facility] Comment on above: Order Comment: Speci men Type: BLOOD SPECIMENOrdering Facility: [facility] Address: [facility] [place] [id number] Performed By: #### 3 084-1, 21136-7, , 1988-03 ####VILLARREAL LABORATORYCLIA [id number] [address] ALT [Catalytic activity/Vol] U/L Low 7-38 [facility] Comment on above: Order Comment: Speci men Type: BLOOD SPECIMENOrdering Facility: [facility] Address: [address] [place], [place] [address]Dr[place]USSO, [place] [address] Performed By: #### 3 084-1, , , 1988-03 ####VILLARREAL LABORATORYCLIA [id number] [place] [address] [place] Anion gap [Moles/Vol] 11 mmol/L Normal 8-15 [facility] Comment on above: Order Comment: Speci men Type: BLOOD SPECIMENOrdering Facility: [facility] Address: [address] [place] [address] Performed By: #### 3 084-1, , , 1988-03 ####VILLARREAL LABORATORYCLIA [id number] [place] [address] [place] AST [Catalytic activity/Vol] 15 U/L Normal 13-35 [facility] Comment on above: Order Comment: Speci men Type: BLOOD SPECIMENOrdering Facility: [facility] Address: [address] [place] [address] Performed By: #### 3 084-1, , , 1988-03 ####[facility] LABORATORYCLIA [id number] [place] [address] [place] Bilirubin [Mass/Vol] 0.2 mg/dL Normal 0.2-1.3 [facility] Comment on above: Order Comment: Speci men Type: BLOOD SPECIMENOrdering Facility: [facility] Address: [address] [place] [address] Performed By: #### 3 084-1, , , 1988-03 ####[facility] LABORATORYCLIA [id number] [place] [address] [place] Calcium [Mass/Vol] 9.0 mg/dL Normal 8.5-10.2 [facility] Comment on above: Order Comment: Speci men Type: BLOOD SPECIMENOrdering Facility: [facility] Address: [address] [place] [address] Performed By: #### 3 084-1, , , 1988-03 ####[facility] LABORATORYCLIA [id number] [place] [address] [place] Chloride [Moles/Vol] 93 mmol/L Low 98-107 [facility] Comment on above: Order Comment: Fan meade Type: BLOOD SPECIMENOrdering Facility: [facility] Address: [address] [place], [place] [address] Performed By: #### 3 084-1, , , 1988-03 ####[facility] LABORATORYCLIA [id number] [place] [address] [place] CO2 [Moles/Vol] 24 mmol/L Normal 22-30 [facility] Comment on above: Order Comment: Fan meade Type: BLOOD SPECIMENOrdering Facility: [facility] Address: [address] [place] [address] Performed By: #### 3 084-1, , , 1988-03 ####[facility] LABORATORYCLIA [id number] [place] [address] [place] Creatinine [Mass/Vol] 0.89 mg/dL Normal 0.58-0.96 [facility] Comment on above: Order Comment: Fan meade Type: BLOOD SPECIMENOrdering Facility: [facility] Address: [address] [place] [address] Performed By: #### 3 084-1, , , 1988-03 ####[facility] LABORATORYCLIA [id number] [place] [address] [place] Creatinine and Glomerular filtration rate.predicted panel (S/P/Bld) 62 mL/min/1.73m??? Normal >=60 [facility] Comment on above: Order Comment: Fan meade Type: BLOOD SPECIMENOrdering Facility: [facility] Address: [address] [place] [address] Result Comment: Hilda mated Glomerular Filtration Rate [...] GFR. Performed By: #### 3 084-1, , 1988-03 ####[facility] LABORATORYCLIA [id number] [place] [address] [place] Glucose [Mass/Vol] 289 mg/dL High 74-99 [facility] Comment on above: Order Comment: Katei men Type: BLOOD SPECIMENOrdering Facility: [facility] Address: [address] [place] [address] Result Comment: The [place] [employer] (ADA) provides guidance for cutoff [...] Standards of Medical Care in Diabetes 2016, [place] [employer]. Diabetes Care. 2016.39(Suppl 1). Performed By: #### 3 084-1, , 1988-03 ####[facility] LABORATORYCLIA [id number] [place] [id number] [place] Potassium [Moles/Vol] 4.4 mmol/L Normal 3.7-5.1 [facility] Comment on above: Order Comment: Fan meade Type: BLOOD SPECIMENOrdering Facility: [facility] Address: [address] [place] [address] Performed By: #### 3 084-1, , , 1988-03 ####[facility] LABORATORYCLIA [id number] [place] [id number] [place] Protein [Mass/Vol] 5.6 g/dL Low 6.3-8.0 [facility] Comment on above: Order Comment: Fan men Type: BLOOD SPECIMENOrdering Facility: [facility] Address: [address] [place] [address] Performed By: #### 3 084-1, , , 1988-03 ####VILLARREAL LABORATORYCLIA [id number] [place] [address] [place] Sodium [Moles/Vol] 128 mmol/L Low 136-144 [facility] Comment on above: Order Comment: Speci men Type: BLOOD SPECIMENOrdering Facility: [facility] Address: [address] [place] [address] Performed By: #### 3 084-1, , , 1988-03 ####VILLARREAL LABORATORYCLIA [id number] [place] [address] [place] Urea nitrogen [Mass/Vol] 36 mg/dL High 7-21 [facility] Comment on above: Order Comment: Speci men Type: BLOOD SPECIMENOrdering Facility: [facility] Address: [address] [place] [address] Performed By: #### 3 084-1, , , 1988-03 ####G[facility] LABORATORYCLIA [id number] [place] [address] [place] DNA double strand Ab IA Qn ( S)on 12-02-2024 DNA ANTIBODY 117 IU/mL Normal <=200 [facility] Comment on above: Order Comment: Speci men Type: BLOOD SPECIMENOrdering Facility: [facility] Address: [address] [place] [address] Result Comment: Nega tive: <200 IU/mLEquivocal: 201-300 IU/mLModerate Positive: 301-800 IU/mLStrong Positive: >801 IU/mL Performed By: #### 1 989-3, 48712-9, 89403-0, [facility], 6969-0 ####[facility] LABCLIA [id number] [facility] [id number] [address] [place] DNA ANTIBODY QUALITATIVE INTERPRETATION Negative Normal Negative [facility] Comment on above: Order Comment: Speci men Type: BLOOD SPECIMENOrdering Facility: [facility] Address: [address] [place] [address] Performed By: #### 1 989-3, 11160-4, 10327-4, [facility], 6969-0 ####[facility] LABCLIA [id number] [facility] [id number] [place] [id number] [place] ESR Westergren method (Bld) [Velocity]on 12-02-2024 ESR (Bld) [Velocity] 120 mm/h High 0-20 [facility] Comment on above: Order Comment: Speci men Type: BLOOD SPECIMENOrdering Facility: [facility] Address: [address] [place] [address] Performed By: #### 4 537-7 ####[facility] LABCLIA [id number] [facility] [id number] [address] [place] MRI BRAIN WO/W IVCONon 12-02 MRI BRAIN WO/W IVCON Normal [facility] MRI CERVICAL SPINE WO/W IVCO Non 12-02-2024 MRI CERVICAL SPINE WO/W IVCON Normal [facility] MRI LUMBAR SPINE WO/W IVCONo n 12-02-2024 MRI LUMBAR SPINE WO/W IVCON Normal [facility] MRI THORACIC SPINE WO/W IVCO Non 12-02-2024 MRI THORACIC SPINE WO/W IVCON Normal [facility] Magnesium SerPl-mCncon 12-02 Magnesium [Mass/Vol] 1.5 mg/dL Low 1.7-2.3 [facility] Comment on above: Order Comment: Speci men Type: BLOOD SPECIMENOrdering Facility: [facility] Address: [address] [place] [address] Performed By: #### 3 084-1, 02317-4, 91483-9, 1988-03 ####[facility] LABORATORYCLIA [id number] [place] [address] [place] Myeloperoxidase Ab Ser-aCnco n 12-02-2024 Myeloperoxidase Ab Qn (S) <0.2 Normal <1.0 [facility] Comment on above: Order Comment: Speci men Type: BLOOD SPECIMENOrdering Facility: [facility] Address: [address] [place] [address] Performed By: #### 1 989-3, 40508-2, 55812-5, [facility], 6969-0 ####[facility] LABIA [id number] [address] [address] [place] Osmolality SerPlon Osmolality [Osmolality] 285 mosm/kg Normal 275-300 [facility] Comment on above: Order Comment: Speci men Type: BLOOD SPECIMENOrdering Facility: [facility] Address: [address] [place] [address] Performed By: #### 2 692-2 ####[facility] LABIA [id number] [place] [id number] [place] Osmolality Uron 12-02-2024 Osmolality (U) [Osmolality] 488 mosm/kg Normal 50-1200 [facility] Comment on above: Order Comment: Speci men Type: URINE SPECIMENOrdering Facility: [facility] Address: [address] [place] [address] Performed By: #### 2 695-5 ####[facility]PITAL[facility] [id number] [place] [id number] [place] PROTEINASE 3 ANTIBODYon 11-14 Proteinase 3 Ab Qn (S) <0.2 Normal <1.0 [facility] Comment on above: Order Comment: Speci men Type: BLOOD SPECIMENOrdering Facility: [facility] Address: [address] [place] [address] Performed By: #### 1 989-3, 06018-7, 13069-8, [facility], 6969-0 ####[facility] [id number] [address] [address] [place] Phosphate SerPl-mCncon 12-02 Phosphate [Mass/Vol] 3.0 mg/dL Normal 2.7-4.8 [facility] Comment on above: Order Comment: Speci men Type: BLOOD SPECIMENOrdering Facility: [facility] Address: [address] [place] [address] Performed By: #### 2 777-1 ####[facility]ORYCL[facility] [id number] [place] [address] [place] Smooth muscle Ab Ql (S)on ACTIN SMOOTH MUSCLE IGG QUALITATIVE Negative Normal Negative [facility] Comment on above: Order Comment: Speci men Type: BLOOD SPECIMENOrdering Facility: [facility] Address: [address] [place] [address] Performed By: #### 1 989-3, 59199-4, 99460-3, ANCA, 6969-0 ####[facility] [id number] [place] [address] [place] ACTIN SMOOTH MUSCLE IGG QUANTITATIVE 3 Units Normal <20 [facility] Comment on above: Order Comment: Speci men Type: BLOOD SPECIMENOrdering Facility: [facility] Address: [address] [place] [address] Performed By: #### 1 989-3, 97556-7, 57307-6, ANCA, 6969-0 ####[facility] [id number] [place] [address] [place] Sodium SerPl-sCncon 12-02-19 25 Sodium [Moles/Vol] 127 mmol/L Low 136-144 [facility] Comment on above: Order Comment: Speci men Type: BLOOD SPECIMENOrdering Facility: [facility] Address: [address] [place] [address] Performed By: #### 2 951-2 ####[facility]ORYCLIA [id number] [place] [address] [place] Sodium [Moles/Vol] 130 mmol/L Low 136-144 [facility] Comment on above: Order Comment: Speci men Type: BLOOD SPECIMENOrdering Facility: [facility] Address: [address] [place] [address] Performed By: #### 2 951-2, 2157-6, 3084-1 ####[facility]ORATORYCLIA [id number] [place] [id number] [place] US ABD RIGHT UPPER QUADRANTo n 12-02-2024 US ABD RIGHT UPPER QUADRANT Normal [facility] US ABD SPLEEN -NBon 12-02-19 US ABD SPLEEN -NB Normal [facility] US EXT MASS/FLUID COLLECTION LTon 12-02-2024 US EXT MASS/FLUID COLLECTION LT [facility] Urate SerPl-mCncon Urate [Mass/Vol] 4.9 mg/dL Normal 2.5-6.6 [facility] Comment on above: Order Comment: Speci men Type: BLOOD SPECIMENOrdering Facility: [facility] Address: [address] [place] [address] Performed By: #### 2 951-2, 2157-6, 3084-1 ####[facility]ORATORYCLIA [id number] [place] [address] [place] Urate [Mass/Vol] 5.1 mg/dL Normal 2.5-6.6 [facility] Comment on above: Order Comment: Speci men Type: BLOOD SPECIMENOrdering Facility: [facility] Address: [address] [place] [address] Performed By: #### 3 084-1, 90940-8, 19965-9, 1987- ####[facility]ORATORYCLIA [id number] [address] [place] ALLIED HEALTHon 12-01-2024 ALLIED HEALTH [facility] Bacteria Ur Culton 5 Bacteria identified Cx Nom (U) CULTURE, URINE: Mixed microbiota: ORGANISM ID: 1 <10,000 CFU/ml Lactose negative gram negative bacilli Insignificant colony count. No further workup. [facility] Comment on above: Performed By: #### 6 30-4 ####[facility] [id number] [facility] [id number] [id number] [place] Basic metabolic 2000 panelon 12-01-2024 Anion gap [Moles/Vol] 12 mmol/L Normal 8-15 [facility] Comment on above: Order Comment: Speci men Type: BLOOD SPECIMENOrdering Facility: [facility] Address: [address] [place] [address] Performed By: #### 2 4321-2 ####[facility]ORATORYCLIA [id number] [place] [address] [place] Calcium [Mass/Vol] 8.7 mg/dL Normal 8.5-10.2 [facility] Comment on above: Order Comment: Speci men Type: BLOOD SPECIMENOrdering Facility: [facility] Address: [address] [place] [address] Performed By: #### 2 4321-2 ####[facility]ORATORYCLIA [id number] [place] [address] [place] Chloride [Moles/Vol] 91 mmol/L Low 98-107 [facility] Comment on above: Order Comment: Speci men Type: BLOOD SPECIMENOrdering Facility: [facility] Address: [address] [place] [address] Performed By: #### 2 4321-2 ####[facility]ORATORYCLIA [id number] [place] [address] [place] CO2 [Moles/Vol] 25 mmol/L Normal 22-30 [facility] Comment on above: Order Comment: Speci men Type: BLOOD SPECIMENOrdering Facility: [facility] Address: [address] [place] [address] Performed By: #### 2 4321-2 ####[facility]ORATORYCLIA [id number] [address] [place] Creatinine [Mass/Vol] 1.03 mg/dL High 0.58-0.96 [facility] Comment on above: Order Comment: Speci men Type: BLOOD SPECIMENOrdering Facility: [facility] Address: [address] [place] [address] Performed By: #### 2 4321-2 ####[facility]ORATORYCLIA [id number] [address] Creatinine and Glomerular filtration rate.predicted panel (S/P/Bld) 52 mL/min/1.73m??? Low >=60 [facility] Comment on above: Order Comment: Speci men Type: BLOOD SPECIMENOrdering Facility: [facility] Address: [address] [place] [address] Result Comment: Hilda mated Glomerular Filtration Rate [...] actual GFR. Performed By: #### 2 4321-2 ####[facility]ATORYCLIA [id number] [place] [id number] [place] Glucose [Mass/Vol] 200 mg/dL High 74-99 [facility] Comment on above: Order Comment: Fan meade Type: BLOOD SPECIMENOrdering Facility: [facility] Address: [address] [place] [address] Result Comment: The [place] Diabetes [employer] (ADA) provides guidance for cutoff [...] Standards of Medical Care in Diabetes 2016, [place] [employer]. Diabetes Care. 2016.39(Suppl 1). Performed By: #### 2 4321-2 ####[facility]ORATORYCLIA [id number] [place] [id number] [place] Potassium [Moles/Vol] 4.7 mmol/L Normal 3.7-5.1 [facility] Comment on above: Order Comment: Fan meade Type: BLOOD SPECIMENOrdering Facility: [facility] Address: [address] [place] [address] Performed By: #### 2 4321-2 ####[facility] LABORATORYCLIA [id number] [place] [address] [place] Sodium [Moles/Vol] 128 mmol/L Low 136-144 [facility] Comment on above: Order Comment: Speci men Type: BLOOD SPECIMENOrdering Facility: [facility] Address: [address] [place] [address] [place] [address] Performed By: #### 2 4321-2 ####[facility]ORATORYCLIA [id number] [place] [address] [place] Urea nitrogen [Mass/Vol] 36 mg/dL High 7-21 [facility] Comment on above: Order Comment: Speci men Type: BLOOD SPECIMENOrdering Facility: [facility] Address: [address] [place] [address] Performed By: #### 2 4321-2 ####[facility]ORATORYCLIA [id number] [place] [address] [place] Anion gap [Moles/Vol] 12 mmol/L Normal 8-15 [facility] Comment on above: Order Comment: Speci men Type: BLOOD SPECIMENOrdering Facility: [facility] Address: [address] [place] [address] Performed By: #### 1 9123-9, 70223-4, 45401-4, 37635-0, 49494-9 ####[facility] LABORATORYCLIA [id number] [place] [address] [place] Calcium [Mass/Vol] 9.4 mg/dL Normal 8.5-10.2 [facility] Comment on above: Order Comment: Speci men Type: BLOOD SPECIMENOrdering Facility: [facility] Address: [address] [place] [address] Performed By: #### 1 9123-9, 97822-4, 35376-3, 45558-8, 32024-1 ####[facility]ORATORYCLIA [id number] [place] [address] [place] Chloride [Moles/Vol] 92 mmol/L Low 98-107 [facility] Comment on above: Order Comment: Speci men Type: BLOOD SPECIMENOrdering Facility: [facility] Address: [address] [place] [address] Performed By: #### 1 9123-9, 50142-1, 63315-6, 76026-0, 92422-9 ####[facility]ORATORYCLIA [id number] [place] [address] [place] CO2 [Moles/Vol] 25 mmol/L Normal 22-30 [facility] Comment on above: Order Comment: Fan meade Type: BLOOD SPECIMENOrdering Facility: [facility] Address: [address] [place] [address] Performed By: #### 1 9123-9, 53294-3, 94133-6, 49696-8, 69032-1 ####[facility]ORYCLIA [id number] [address] [place] Creatinine [Mass/Vol] 0.95 mg/dL Normal 0.58-0.96 [facility] Comment on above: Order Comment: Fan meade Type: BLOOD SPECIMENOrdering Facility: [facility] Address: [address] [place] [address] Performed By: #### 1 9123-9, 43656-0, 75903-0, 25701-5, 70665-3 ####[facility]ATORYCLIA [id number] [address] [place] [facility] Creatinine and Glomerular filtration rate.predicted panel (S/P/Bld) 58 mL/min/1.73m??? Low >=60 [facility] Comment on above: Order Comment: Fan meade Type: BLOOD SPECIMENOrdering Facility: [facility] Address: [address] [place] [address] Result Comment: Hilda mated Glomerular Filtration Rate [...] actual GFR. Performed By: #### 1 9123-9, 25948-6, 21072-3, 74951-9, 47944-7 ####[facility]ORATORYCLIA [id number] [place] [address] [place] Glucose [Mass/Vol] 230 mg/dL High 74-99 [facility] Comment on above: Order Comment: Fan meade Type: BLOOD SPECIMENOrdering Facility: [facility] Address: [address] [place] [address] Result Comment: The [place] Diabetes [employer] (ADA) provides guidance for cutoff [...] Standards of Medical Care in Diabetes 2016, [place] [employer]. Diabetes Care. 2016.39(Suppl 1). Performed By: #### 1 9123-9, 74675-6, 30265-8, 71013-8, 85134-1 ####[facility]ATORYCLIA [id number] [place] [address] [place] Potassium [Moles/Vol] 4.7 mmol/L Normal 3.7-5.1 [facility] Comment on above: Order Comment: Fan meade Type: BLOOD SPECIMENOrdering Facility: [facility] Address: [address] [place] [address] Performed By: #### 1 9123-9, 14933-0, 21923-2, 57697-0, 66451-2 ####[facility]ORATORYCLIA [id number] [place] [id number] [place] Sodium [Moles/Vol] 129 mmol/L Low 136-144 [facility] Comment on above: Order Comment: Fan meade Type: BLOOD SPECIMENOrdering Facility: [facility] Address: [address] [place], [place] [address] Performed By: #### 1 9123-9, 47274-1, 64305-8, 50477-3, 03671-6 ####[facility]ORATORYCLIA [id number] [place] [address] [place] Urea nitrogen [Mass/Vol] 36 mg/dL High 7-21 [facility] Comment on above: Order Comment: Speci men Type: BLOOD SPECIMENOrdering Facility: [facility] Address: [address] [place] [address] Performed By: #### 1 9123-9, 64371-9, 73953-3, 70663-5, 19301-3 ####[facility]ORATORYCLIA [id number] [address] [place] CBC W Auto Differential pane l (Bld)on 12-01-2024 Basophils (Bld) [#/Vol] 0.06 10*3/uL Normal <0.11 [facility] Comment on above: Order Comment: Speci men Type: BLOOD SPECIMENOrdering Facility: [facility] Address: [address] [place] [address] Performed By: #### 5 7021-8 ####[facility]ORATORYCLIA [id number] [address] [place] Basophils/100 WBC (Bld) 0.3 % Normal [facility] Comment on above: Order Comment: Speci men Type: BLOOD SPECIMENOrdering Facility: [facility] Address: [address] [place] [address] Performed By: #### 5 7021-8 ####[facility]ORATORYCLIA [id number] [address] Differential cell count method Nom (Bld) Auto Normal [facility] Comment on above: Order Comment: Speci men Type: BLOOD SPECIMENOrdering Facility: [facility] Address: [address] [place] [address] Performed By: #### 5 7021-8 ####[facility] LABORATORYCLIA [id number] [place] [address] [place] Eosinophils (Bld) [#/Vol] 0.20 10*3/uL Normal <0.46 [facility] Comment on above: Order Comment: Speci men Type: BLOOD SPECIMENOrdering Facility: [facility] Address: [address] [place] [address] Performed By: #### 5 7021-8 ####[facility] LABORATORYCLIA [id number] [place] [address] [place] Eosinophils/100 WBC (Bld) 0.9 % Normal [facility] Comment on above: Order Comment: Speci men Type: BLOOD SPECIMENOrdering Facility: [facility] Address: [address] [place] [address] Performed By: #### 5 7021-8 ####[facility] LABORATORYCLIA [id number] [place] [address] [place] Erythrocyte distribution width (RBC) [Ratio] 15.9 % High 11.5-15.0 [facility] Comment on above: Order Comment: Speci men Type: BLOOD SPECIMENOrdering Facility: [facility] Address: [address] [place] [address] Performed By: #### 5 7021-8 ####[facility] LABORATORYCLIA [id number] [place] [address] [place] Hematocrit (Bld) [Volume fraction] 26.6 % Low 36.0-46.0 [facility] Comment on above: Order Comment: Speci men Type: BLOOD SPECIMENOrdering Facility: [facility] Address: [address] [place] [address] Performed By: #### 5 7021-8 ####[facility] LABORATORYCLIA [id number] [place] [address] [place] Hemoglobin (Bld) [Mass/Vol] 8.8 g/dL Low 11.5-15.5 [facility] Comment on above: Order Comment: Speci men Type: BLOOD SPECIMENOrdering Facility: [facility] Address: [address] [place] [address] Performed By: #### 5 7021-8 ####[facility] LABORATORYCLIA [id number] [place] [address] [place] Immature granulocytes (Bld) [#/Vol] 0.32 10*3/uL High <0.10 [facility] Comment on above: Order Comment: Speci men Type: BLOOD SPECIMENOrdering Facility: [facility] Address: [address] [place] [address] Performed By: #### 5 7021-8 ####[facility] LABORATORYCLIA [id number] [address] Immature granulocytes/100 WBC (Bld) 1.4 % Normal [facility] Comment on above: Order Comment: Speci men Type: BLOOD SPECIMENOrdering Facility: [facility] Address: [address] [place] [address] Performed By: #### 5 7021-8 ####[facility] LABORATORYCLIA [id number] [place] [address] [place] Lymphocytes (Bld) [#/Vol] 1.00 10*3/uL Normal 1.00-4.00 [facility] Comment on above: Order Comment: Speci men Type: BLOOD SPECIMENOrdering Facility: [facility] Address: [address] [place] [address] Performed By: #### 5 7021-8 ####[facility]ORATORYCLIA [id number] [address] Lymphocytes/100 WBC (Bld) 4.5 % Normal [facility] Comment on above: Order Comment: Speci men Type: BLOOD SPECIMENOrdering Facility: [facility] Address: [address] [place] [address] Performed By: #### 5 7021-8 ####[facility] LABORATORYCLIA [id number] [address] [place] MCH (RBC) [Entitic mass] 28.3 pg Normal 26.0-34.0 [facility] Comment on above: Order Comment: Speci men Type: BLOOD SPECIMENOrdering Facility: [facility] Address: [address] [place] [address] Performed By: #### 5 7021-8 ####[facility] LABORATORYCLIA [id number] [address] [place] [facility] MCHC (RBC) [Mass/Vol] 33.1 g/dL Normal 30.5-36.0 [facility] Comment on above: Order Comment: Speci men Type: BLOOD SPECIMENOrdering Facility: [facility] Address: [address] [place] [address] Performed By: #### 5 7021-8 ####[facility] LABORATORYCLIA [id number] [place] [address] [place] MCV (RBC) [Entitic vol] 85.5 fL Normal 80.0-100.0 [facility] Comment on above: Order Comment: Speci men Type: BLOOD SPECIMENOrdering Facility: [facility] Address: [address] [place] [address] Performed By: #### 5 7021-8 ####[facility] LABORATORYCLIA [id number] [place] [address] [place] Monocytes (Bld) [#/Vol] 1.18 10*3/uL High <0.87 [facility] Comment on above: Order Comment: Speci men Type: BLOOD SPECIMENOrdering Facility: [facility] Address: [address] [place] [address] Performed By: #### 5 7021-8 ####[facility] LABORATORYCLIA [id number] [address] [place] Monocytes/100 WBC (Bld) 5.3 % Normal [facility] Comment on above: Order Comment: Speci men Type: BLOOD SPECIMENOrdering Facility: [facility] Address: [address] [place] [address] Performed By: #### 5 7021-8 ####[facility] LABORATORYCLIA [id number] [place] [address] [place] Neutrophils (Bld) [#/Vol] 19.49 10*3/uL High 1.45-7.50 [facility] Comment on above: Order Comment: Speci men Type: BLOOD SPECIMENOrdering Facility: [facility] Address: [address] [place] [address] Performed By: #### 5 7021-8 ####[facility] LABORATORYCLIA [id number] [place] [address] [place] Neutrophils/100 WBC (Bld) 87.6 % Normal [facility] Comment on above: Order Comment: Speci men Type: BLOOD SPECIMENOrdering Facility: [facility] Address: [address] [place] [address] Performed By: #### 5 7021-8 ####[facility] LABORATORYCLIA [id number] [place] [address] [place] Nucleated RBC (Bld) [#/Vol] 10*3/uL Normal <0.01 [facility] Comment on above: Order Comment: Speci men Type: BLOOD SPECIMENOrdering Facility: [facility] Address: [address] [place] [address] Performed By: #### 5 7021-8 ####[facility] LABORATORYCLIA [id number] [place] [address] [place] Nucleated RBC/100 WBC (Bld) [Ratio] 0.0 /100 WBC Normal [facility] Comment on above: Order Comment: Speci men Type: BLOOD SPECIMENOrdering Facility: [facility] Address: [address] [place] [address] Performed By: #### 5 7021-8 ####[facility] LABORATORYCLIA [id number] [place] [address] [place] Platelet mean volume (Bld) [Entitic vol] 8.7 fL Low 9.0-12.7 [facility] Comment on above: Order Comment: Speci men Type: BLOOD SPECIMENOrdering Facility: [facility] Address: [address] [place] [address] Performed By: #### 5 7021-8 ####[facility] LABORATORYCLIA [id number] [place] [address] [place] Platelets (Bld) [#/Vol] 435 10*3/uL High 150-400 [facility] Comment on above: Order Comment: Speci men Type: BLOOD SPECIMENOrdering Facility: [facility] Address: [address] [place] [address] Performed By: #### 5 7021-8 ####[facility] LABORATORYCLIA [id number] [place] [address] [place] RBC (Bld) [#/Vol] 3.11 10*6/uL Low 3.90-5.[address] [facility] Comment on above: Order Comment: Speci men Type: BLOOD SPECIMENOrdering Facility: [facility] Address: [address] [place] [address] Performed By: #### 5 7021-8 ####[facility] LABORATORYCLIA [id number] [place] [address] [place] WBC (Bld) [#/Vol] 22.25 10*3/uL High 3.70-11.00 [facility] Comment on above: Order Comment: Speci men Type: BLOOD SPECIMENOrdering Facility: [facility] Address: [address] [place] [address] Performed By: #### 5 7021-8 ####[facility]ORATORYCLIA [id number] [address] [place] CONSULT PROGon 12-01-2024 CONSULT PROG [facility] CONSULT PROG [facility] CT ABD/PEL W IVCONon 025 CT ABD/PEL W IVCON [facility] ECG COMPLETEon 12-01-2024 ECG COMPLETE [facility] Hepatic function 2000 panelo n 12-01-2024 Albumin [Mass/Vol] 2.7 g/dL Low 3.9-4.9 [facility] Comment on above: Order Comment: Speci men Type: BLOOD SPECIMENOrdering Facility: [facility] Address: [address] [place] [address] Performed By: #### 1 9123-9, 48043-7, 88036-4, 04141-5, 62972-2 ####[facility]ORATORYCLIA [id number] [address] [place] ALP [Catalytic activity/Vol] 79 U/L Normal 34-123 [facility] Comment on above: Order Comment: Speci men Type: BLOOD SPECIMENOrdering Facility: [facility] Address: [address] [place] [address] Performed By: #### 1 9123-9, 98592-2, 65833-5, 34529-1, 36890-7 ####[facility] LABORATORYCLIA [id number] [place] [address] [place] ALT [Catalytic activity/Vol] U/L Low 7-38 [facility] Comment on above: Order Comment: Speci men Type: BLOOD SPECIMENOrdering Facility: [facility] Address: [address] [place] [address] Performed By: #### 1 9123-9, 86243-1, 75238-7, 16295-5, 21296-4 ####[facility]ORATORYCLIA [id number] [address] AST [Catalytic activity/Vol] 20 U/L Normal 13-35 [facility] Comment on above: Order Comment: Speci men Type: BLOOD SPECIMENOrdering Facility: [facility] Address: [address] [place] [address] Performed By: #### 1 9123-9, 26938-2, 91620-0, 62357-1, 92239-4 ####[facility]ORATORYCLIA [id number] [address] [place] Bilirubin [Mass/Vol] 0.2 mg/dL Normal 0.2-1.3 [facility] Comment on above: Order Comment: Speci men Type: BLOOD SPECIMENOrdering Facility: [facility] Address: [address] [place] [address] Performed By: #### 1 9123-9, 92362-6, 26956-1, 95371-4, 37844-3 ####[facility]ORATORYCLIA [id number] [address] Bilirubin.conjugated [Mass/Vol] mg/dL Normal <0.3 [facility] Comment on above: Order Comment: Speci men Type: BLOOD SPECIMENOrdering Facility: [facility] Address: [address] [place] [address] Performed By: #### 1 9123-9, 08312-6, 02925-6, 88194-9, 28013-7 ####[facility]ORATORYCLIA [id number] [address] Protein [Mass/Vol] 5.9 g/dL Low 6.3-8.0 [facility] Comment on above: Order Comment: Speci men Type: BLOOD SPECIMENOrdering Facility: [facility] Address: [address] [place] [address] Performed By: #### 1 9123-9, 02771-8, 40940-6, 28893-9, 90007-3 ####[facility] LABORATORYCLIA [id number] [address] [place] MRI ANKLE WO IVCON LTon - MRI ANKLE WO IVCON LT Normal [facility] MRI FOOT/TOES WO IVCON LTon 12-01-2024 MRI FOOT/TOES WO IVCON LT Normal [facility] Magnesium SerPl-mCncon 12-01 Magnesium [Mass/Vol] 2.3 mg/dL Normal 1.7-2.3 [facility] Comment on above: Order Comment: Speci men Type: BLOOD SPECIMENOrdering Facility: [facility] Address: [address] [place] [address] Performed By: #### 1 9123-9, 21040-5, 92955-8, 47655-3, 62825-5 ####[facility] LABORATORYCLIA [id number] [address] NT-proBNP SerPl-mCncon 12-01 Natriuretic peptide.B prohormone N-Terminal [Mass/Vol] 1162 pg/mL High <450 [facility] Comment on above: Order Comment: Speci men Type: BLOOD SPECIMENOrdering Facility: [facility] Address: [address] [place] [address] Performed By: #### 1 9123-9, 93499-4, 45907-1, 05346-0, 27487-3 ####[facility] LABORATORYCLIA [id number] [address] Procalcitonin SerPl-mCncon 0 12-01-2024 Procalcitonin [Mass/Vol] 0.24 ng/mL High <0.09 [facility] Comment on above: Order Comment: Speci men Type: BLOOD SPECIMENOrdering Facility: [facility] Address: [address] [place] [address] Result Comment: For a guided interpretation of test results, please visit the Change in Procalcitonin Calculator, [email or web address]. Performed By: #### 1 9123-9, 46517-2, 98542-0, 00919-4, 32610-1 ####[facility] LABORATORYCLIA [id number] [place] [address] [place] SEPSIS LACTATEon 12-01-2024 Lactate [Moles/Vol] 1.5 mmol/L Normal 0.5-2.[address] [facility] Comment on above: Order Comment: Speci men Type: BLOOD SPECIMENOrdering Facility: [facility] Address: [address] [place] [address] Performed By: #### S LACT ####[facility] LABORATORYCLIA [id number] [place] [address] [place] Sodium ?Tm Ur-sCncon 025 Sodium Unsp time (U) [Moles/Vol] 39 mmol/L Normal 14-216 [facility] Comment on above: Order Comment: Speci men Type: URINE SPECIMENOrdering Facility: [facility] Address: [address] [place] [address] Performed By: #### 3 5678-2 ####[facility] LABCL[facility] [id number] [facility] [id number] [place] [address] [place] URINALYSIS, REFLEX MICROSCOP ICon 12-01-2024 Bacteria LM.HPF (Urine sed) [#/Area] Few Abnormal None Seen [facility] Comment on above: Order Comment: Speci men Type: URINE SPECIMENOrdering Facility: [facility] Address: [address] [place] [address] Performed By: #### L [id number] ####VILL[facility] LABORATORYCLIA [id number] [place] [id number] [place] Bilirubin Ql (U) Negative Normal Negative [facility] Comment on above: Order Comment: Speci men Type: URINE SPECIMENOrdering Facility: [facility] Address: [address] [place] [address] Performed By: #### L [id number] ####V[facility]RE[facility] LABORATORYCLIA [id number] [place] [address] [place] Clarity (Unsp spec) Clear Normal Clear [facility] Comment on above: Order Comment: Speci men Type: URINE SPECIMENOrdering Facility: [facility] Address: [address] [place] [address] Performed By: #### L [id number] ####VILLARREAL LABORATORYCLIA [id number] [address] [place] Color (U) Yellow Normal Yellow [facility] Comment on above: Order Comment: Speci men Type: URINE SPECIMENOrdering Facility: [facility] Address: [address] [place] [address] Performed By: #### L [id number] ####[facility] LABORATORYCLIA [id number] [address] [place] Epithelial cells LM.HPF (Urine sed) [#/Area] Few Normal [facility] Comment on above: Order Comment: Speci men Type: URINE SPECIMENOrdering Facility: [facility] Address: [address] [place] [address] Performed By: #### L [id number] ####[facility] LABORATORYCLIA [id number] [address] [place] Glucose Test strip (U) [Mass/Vol] Trace Abnormal Negative [facility] Comment on above: Order Comment: Speci men Type: URINE SPECIMENOrdering Facility: [facility] Address: [address] [place] [address] Performed By: #### L [id number] ####[facility] LABORATORYCLIA [id number] [address] [place] Hemoglobin Ql (U) Negative Normal Negative [facility] Comment on above: Order Comment: Speci men Type: URINE SPECIMENOrdering Facility: [facility] Address: [address] [place] [address] Performed By: #### L [id number] ####[facility] LABORATORYCLIA [id number] [address] [place] Ketones Ql (U) Trace Abnormal Negative [facility] Comment on above: Order Comment: Speci men Type: URINE SPECIMENOrdering Facility: [facility] Address: [address] [place] [address] Performed By: #### L [id number] ####V[facility] LABORATORYCLIA [id number] [place] [address] [place] Leukocyte esterase Test strip Ql (U) Trace Abnormal Negative [facility] Comment on above: Order Comment: Speci men Type: URINE SPECIMENOrdering Facility: [facility] Address: [address] [place] [address] Performed By: #### L [id number] ####V[facility] LABORATORYCLIA [id number] [place] [address] [place] Nitrite Ql (U) Negative Normal Negative [facility] Comment on above: Order Comment: Speci men Type: URINE SPECIMENOrdering Facility: [facility] Address: [address] [place] [address] Performed By: #### L [id number] ####[facility] LABORATORYCLIA [id number] [address] [place] pH (U) 5.5 [pH] Normal 5.0-8.0 [facility] Comment on above: Order Comment: Speci men Type: URINE SPECIMENOrdering Facility: [facility] Address: [address] [place] [address] Performed By: #### L [id number] ####[facility] LABORATORYCLIA [id number] [place] [address] [place] Protein (U) [Mass/Vol] 2+ Abnormal Negative [facility] Comment on above: Order Comment: Speci men Type: URINE SPECIMENOrdering Facility: [facility] Address: [address] [place] [address] Performed By: #### L [id number] ####[facility] LABORATORYCLIA [id number] [place] [address] [place] RBC LM.HPF (Urine sed) [#/Area] 0-3 /HPF Normal 0-3 /HPF [facility] Comment on above: Order Comment: Speci men Type: URINE SPECIMENOrdering Facility: [facility] Address: [address] [place] [address] Performed By: #### L [id number] ####V[facility] LABORATORYCLIA [id number] [place] [address] [place] Specific gravity (U) [Rel density] 1.025 Normal 1.005-1.030 [facility] Comment on above: Order Comment: Speci men Type: URINE SPECIMENOrdering Facility: [facility] Address: [address] [place] [address] Performed By: #### L [id number] ####V[facility] LABORATORYCLIA [id number] [place] [address] [place] Urobilinogen Ql (U) 0.2 EU/dL Normal 0.2-1.0 EU/dL [facility] Comment on above: Order Comment: Speci men Type: URINE SPECIMENOrdering Facility: [facility] Address: [address] [place] [address] Performed By: #### L [id number] ####[facility] LABORATORYCLIA [id number] [place] [address] [place] WBC LM.HPF (Urine sed) [#/Area] 6-10 /HPF Abnormal 0-5 /HPF [facility] Comment on above: Order Comment: Speci men Type: URINE SPECIMENOrdering Facility: [facility] Address: [address] [place] [address] Performed By: #### L [id number] ####[facility] LABORATORYCLIA [id number] [place] [address] [place] Yeast.budding LM.HPF (Urine sed) [#/Area] Few Abnormal None Seen [facility] Comment on above: Order Comment: Speci men Type: URINE SPECIMENOrdering Facility: [facility] Address: [address] [place] [address] Performed By: #### L [id number] ####VILL[facility] LABORATORYCLIA [id number] [place] [address] [place] ALLIED HEALTHon 11-30-2024 ALLIED HEALTH Normal [facility] Bacteria Bld Culton 11-30-19 25 Bacteria identified Cx Nom (Bld) CULTURE, BLOOD: No growth 5 days Normal [facility] Comment on above: Performed By: #### 6 00-7 ####[facility] LABCLIA [id number] [place] [address] [place] Bacteria identified Cx Nom (Bld) CULTURE, BLOOD: No growth 5 days Normal [facility] Comment on above: Performed By: #### 6 00-7 ####[facility] LABCLIA [id number] [id number] [id number] [place] Basic metabolic 2000 panelon 11-30-2024 Anion gap [Moles/Vol] 12 mmol/L Normal 8-15 [facility] Comment on above: Order Comment: Speci men Type: BLOOD SPECIMENOrdering Facility: [facility] Address: [address] [place] [address] Performed By: #### 2 4321-2, ####VILL[facility] LABORATORYCLIA [id number] [place] [address] [place] Calcium [Mass/Vol] 9.1 mg/dL Normal 8.5-10.2 [facility] Comment on above: Order Comment: Speci men Type: BLOOD SPECIMENOrdering Facility: [facility] Address: [address] [place] [address] Performed By: #### 2 432-2, ####VILL[facility] LABORATORYCLIA [id number] [place] [address] [place] Chloride [Moles/Vol] 95 mmol/L Low 98-107 [facility] Comment on above: Order Comment: Speci men Type: BLOOD SPECIMENOrdering Facility: [facility] Address: [address] [place] [address] Performed By: #### 2 432-2, ####VILL[facility] LABORATORYCLIA [id number] [place] [id number] [place] CO2 [Moles/Vol] 25 mmol/L Normal 22-30 [facility] Comment on above: Order Comment: Speci men Type: BLOOD SPECIMENOrdering Facility: [facility] Address: [facility] [place] [address] Performed By: #### 2 4321-2, ####VILLAR[facility] LABORATORYCLIA [id number] [place] [id number] [place] Creatinine [Mass/Vol] 0.86 mg/dL Normal 0.58-0.96 [facility] Comment on above: Order Comment: Fan meade Type: BLOOD SPECIMENOrdering Facility: [facility] Address: [address] [place] [address] Performed By: #### 2 4321-2, ####[facility] LABORATORYCLIA [id number] [place] [address] [place] Creatinine and Glomerular filtration rate.predicted panel (S/P/Bld) 65 mL/min/1.73m??? Normal >=60 [facility] Comment on above: Order Comment: Fan meade Type: BLOOD SPECIMENOrdering Facility: [facility] Address: [address] [place] [address] Result Comment: Hilda mated Glomerular Filtration Rate [...] Performed By: #### 2 4321-2, ####VILL[facility] LABORATORYCLIA [id number] [place] [id number] [place] Glucose [Mass/Vol] 237 mg/dL High 74-99 [facility] Comment on above: Order Comment: Fan meade Type: BLOOD SPECIMENOrdering Facility: [facility] Address: [address] [facility] [place] [address] Result Comment: The [place] [employer] (ADA) provides guidance for cutoff [...] Standards of Medical Care in Diabetes 2016, [place] [employer]. Diabetes Care. 2016.39(Suppl 1). Performed By: #### 2 4321-2, ####VILL[facility] LABORATORYCLIA [id number] [address] [place] Potassium [Moles/Vol] 4.2 mmol/L Normal 3.7-5.1 [facility] Comment on above: Order Comment: Speci men Type: BLOOD SPECIMENOrdering Facility: [facility] Address: [address] [place] [address] Performed By: #### 2 4321-2, ####V[facility] LABORATORYCLIA [id number] [address] [place] Sodium [Moles/Vol] 132 mmol/L Low 136-144 [facility] Comment on above: Order Comment: Speci men Type: BLOOD SPECIMENOrdering Facility: [facility] Address: [address] [place] [address] Performed By: #### 2 4321-2, ####V[facility] LABORATORYCLIA [id number] [address] [place] Urea nitrogen [Mass/Vol] 26 mg/dL High 7-21 [facility] Comment on above: Order Comment: Speci men Type: BLOOD SPECIMENOrdering Facility: [facility] Address: [address] [place] [address] Performed By: #### 2 4321-2, ####V[facility] LABORATORYCLIA [id number] [address] [place] CASE MANAGEMon 11-30-2024 CASE MANAGEM Normal [facility] CASE MANAGEM Normal [facility] CBC W Auto Differential pane l (Bld)on 11-30-2024 Basophils (Bld) [#/Vol] 0.05 10*3/uL Normal <0.11 [facility] Comment on above: Order Comment: Speci men Type: BLOOD SPECIMENOrdering Facility: [facility] Address: [address] [place] [address] Performed By: #### 5 7021-8 ####[facility] LABORATORYCLIA [id number] [place] [address] [place] Basophils/100 WBC (Bld) 0.3 % Normal [facility] Comment on above: Order Comment: Speci men Type: BLOOD SPECIMENOrdering Facility: [facility] Address: [address] [place] [address] Performed By: #### 5 7021-8 ####V[facility] LABORATORYCLIA [id number] [address] [place] Differential cell count method Nom (Bld) Auto Normal [facility] Comment on above: Order Comment: Speci men Type: BLOOD SPECIMENOrdering Facility: [facility] Address: [address] [place] [address] Performed By: #### 5 7021-8 ####VILL[facility] LABORATORYCLIA [id number] [place] [address] [place] Eosinophils (Bld) [#/Vol] 0.27 10*3/uL Normal <0.46 [facility] Comment on above: Order Comment: Speci men Type: BLOOD SPECIMENOrdering Facility: [facility] Address: [address] [place] [address] Performed By: #### 5 7021-8 ####VILL[facility] LABORATORYCLIA [id number] [address] [place] [employer] [facility] Eosinophils/100 WBC (Bld) 1.8 % Normal [facility] Comment on above: Order Comment: Speci men Type: BLOOD SPECIMENOrdering Facility: [facility] Address: [address] [place] [address] Performed By: #### 5 7021-8 ####VILLARRE[facility] LABORATORYCLIA [id number] [place] [address] [place] Erythrocyte distribution width (RBC) [Ratio] 15.6 % High 11.5-15.0 [facility] Comment on above: Order Comment: Speci men Type: BLOOD SPECIMENOrdering Facility: [facility] Address: [address] [place] [address] Performed By: #### 5 7021-8 ####VILL[facility] LABORATORYCLIA [id number] [place] [address] [place] Hematocrit (Bld) [Volume fraction] 29.9 % Low 36.0-46.0 [facility] Comment on above: Order Comment: Speci men Type: BLOOD SPECIMENOrdering Facility: [facility] Address: [address] [place] [address] Performed By: #### 5 7021-8 ####VILL[facility] LABORATORYCLIA [id number] [place] [address] [place] Hemoglobin (Bld) [Mass/Vol] 9.9 g/dL Low 11.5-15.5 [facility] Comment on above: Order Comment: Speci men Type: BLOOD SPECIMENOrdering Facility: [facility] Address: [address] [place] [address] Performed By: #### 5 7021-8 ####VILLARRE[facility] LABORATORYCLIA [id number] [place] [address] [place] Immature granulocytes (Bld) [#/Vol] 0.24 10*3/uL High <0.10 [facility] Comment on above: Order Comment: Speci men Type: BLOOD SPECIMENOrdering Facility: [facility] Address: [address] [place] [address] Performed By: #### 5 7021-8 ####VILLARRE[facility] LABORATORYCLIA [id number] [place] [address] [place] Immature granulocytes/100 WBC (Bld) 1.6 % Normal [facility] Comment on above: Order Comment: Speci men Type: BLOOD SPECIMENOrdering Facility: [facility] Address: [address] [place] [address] Performed By: #### 5 7021-8 ####VILL[facility] LABORATORYCLIA [id number] [place] [address] [place] Lymphocytes (Bld) [#/Vol] 0.92 10*3/uL Low 1.00-4.00 [facility] Comment on above: Order Comment: Speci men Type: BLOOD SPECIMENOrdering Facility: [facility] Address: [address] [place] [address] Performed By: #### 5 7021-8 ####VILL[facility] LABORATORYCLIA [id number] [address] [place] [employer] [facility] Lymphocytes/100 WBC (Bld) 6.1 % Normal [facility] Comment on above: Order Comment: Speci men Type: BLOOD SPECIMENOrdering Facility: [facility] Address: [address] [place] [address] Performed By: #### 5 7021-8 ####VILLAR[facility] LABORATORYCLIA [id number] [address] [place] MCH (RBC) [Entitic mass] 28.3 pg Normal 26.0-34.0 [facility] Comment on above: Order Comment: Speci men Type: BLOOD SPECIMENOrdering Facility: [facility] Address: [address] [place] [address] Performed By: #### 5 7021-8 ####VILLAR[facility] LABORATORYCLIA [id number] [address] [place] MCHC (RBC) [Mass/Vol] 33.1 g/dL Normal 30.5-36.0 [facility] Comment on above: Order Comment: Speci men Type: BLOOD SPECIMENOrdering Facility: [facility] Address: [address] [place] [address] Performed By: #### 5 7021-8 ####VILLARREAL LABORATORYCLIA [id number] [address] MCV (RBC) [Entitic vol] 85.4 fL Normal 80.0-100.0 [facility] Comment on above: Order Comment: Speci men Type: BLOOD SPECIMENOrdering Facility: [facility] Address: [address] [place] [address] Performed By: #### 5 7021-8 ####VILLARRE[facility] LABORATORYCLIA [id number] [address] [place] Monocytes (Bld) [#/Vol] 0.99 10*3/uL High <0.87 [facility] Comment on above: Order Comment: Speci men Type: BLOOD SPECIMENOrdering Facility: [facility] Address: [address] [place] [address] Performed By: #### 5 7021-8 ####VILLARREAL LABORATORYCLIA [id number] [place] [address] [place] Monocytes/100 WBC (Bld) 6.6 % Normal [facility] Comment on above: Order Comment: Speci men Type: BLOOD SPECIMENOrdering Facility: [facility] Address: [address] [place] [address] Performed By: #### 5 7021-8 ####VILLARRE[facility] LABORATORYCLIA [id number] [place] [address] [place] Neutrophils (Bld) [#/Vol] 12.52 10*3/uL High 1.45-7.50 [facility] Comment on above: Order Comment: Speci men Type: BLOOD SPECIMENOrdering Facility: [facility] Address: [address] [place] [address] Performed By: #### 5 7021-8 ####VILLAR[facility] LABORATORYCLIA [id number] [address] [place] Neutrophils/100 WBC (Bld) 83.6 % Normal [facility] Comment on above: Order Comment: Speci men Type: BLOOD SPECIMENOrdering Facility: [facility] Address: [address] [place] [address] Performed By: #### 5 7021-8 ####VILLAR[facility] LABORATORYCLIA [id number] [place] [address] [place] Nucleated RBC (Bld) [#/Vol] 10*3/uL Normal <0.01 [facility] Comment on above: Order Comment: Speci men Type: BLOOD SPECIMENOrdering Facility: [facility] Address: [address] [place] [address] Performed By: #### 5 7021-8 ####VILLARRE[facility] LABORATORYCLIA [id number] [place] [address] [place] Nucleated RBC/100 WBC (Bld) [Ratio] 0.0 /100 WBC Normal [facility] Comment on above: Order Comment: Speci men Type: BLOOD SPECIMENOrdering Facility: [facility] Address: [address] [place] [address] Performed By: #### 5 7021-8 ####VILLARREAL LABORATORYCLIA [id number] [address] [place] Platelet mean volume (Bld) [Entitic vol] 8.6 fL Low 9.0-12.7 [facility] Comment on above: Order Comment: Speci men Type: BLOOD SPECIMENOrdering Facility: [facility] Address: [address] [place] [address] Performed By: #### 5 7021-8 ####[facility] LABORATORYCLIA [id number] [place] [address] [place] Platelets (Bld) [#/Vol] 436 10*3/uL High 150-400 [facility] Comment on above: Order Comment: Speci men Type: BLOOD SPECIMENOrdering Facility: [facility] Address: [address] [place] [address] Performed By: #### 5 7021-8 ####[facility] LABORATORYCLIA [id number] [place] [address] [place] RBC (Bld) [#/Vol] 3.50 10*6/uL Low 3.90-5.[address] [facility] Comment on above: Order Comment: Speci men Type: BLOOD SPECIMENOrdering Facility: [facility] Address: [address] [place] [address] Performed By: #### 5 7021-8 ####[facility] LABORATORYCLIA [id number] [address] [place] WBC (Bld) [#/Vol] 14.99 10*3/uL High 3.70-11.00 [facility] Comment on above: Order Comment: Speci men Type: BLOOD SPECIMENOrdering Facility: [facility] Address: [address] [place] [address] Performed By: #### 5 7021-8 ####G[facility] LABORATORYCLIA [id number] [address] OF [facility] CONSULT PROGon 11-30-2024 CONSULT PROG Normal [facility] CONSULT PROG [facility] Magnesium SerPl-mCncon 11-30 Magnesium [Mass/Vol] 1.6 mg/dL Low 1.7-2.3 [facility] Comment on above: Order Comment: Speci men Type: BLOOD SPECIMENOrdering Facility: [facility] Address: [address] [place] [address] Performed By: #### 2 4321-2, 46823-3 ####VILLARRE[facility] LABORATORYCLIA [id number] [address] Urinalysis complete panel (U )on 11-30-2024 Bacteria LM.HPF (Urine sed) [#/Area] Few Abnormal None Seen [facility] Comment on above: Order Comment: Speci men Type: URINE SPECIMENOrdering Facility: [facility] Address: [address] [place] [address] Performed By: #### 2 4356-8 ####[facility] LABORATORYCLIA [id number] [address] Bilirubin Ql (U) Negative Normal Negative [facility] Comment on above: Order Comment: Speci men Type: URINE SPECIMENOrdering Facility: [facility] Address: [address] [place] [address] Performed By: #### 2 4356-8 ####VILLARREAL LABORATORYCLIA [id number] [address] Clarity (Unsp spec) Clear Normal Clear [facility] Comment on above: Order Comment: Speci men Type: URINE SPECIMENOrdering Facility: [facility] Address: [address] [place] [address] Performed By: #### 2 4356-8 ####VILLARREAL LABORATORYCLIA [id number] [address] Color (U) Yellow Normal Yellow [facility] Comment on above: Order Comment: Speci men Type: URINE SPECIMENOrdering Facility: [facility] Address: [address] [place] [address] Result Comment: Urin e received in non-preservative tube. Interpret results with caution. To ensure optimal and accurate results, transfer urine to the BD Vacutainer Plus urine preservative tube. Performed By: #### 2 4356-8 ####VILLARREAL LABORATORYCLIA [id number] [address] Epithelial cells LM.HPF (Urine sed) [#/Area] Few Normal [facility] Comment on above: Order Comment: Speci men Type: URINE SPECIMENOrdering Facility: [facility] Address: [address] [place] [address] Performed By: #### 2 4356-8 ####VILLARREAL LABORATORYCLIA [id number] [address] Glucose Test strip (U) [Mass/Vol] 1+ Abnormal Negative [facility] Comment on above: Order Comment: Speci men Type: URINE SPECIMENOrdering Facility: [facility] Address: [address] [place] [address] Performed By: #### 2 4356-8 ####VILLARREAL LABORATORYCLIA [id number] [address] [place] [facility] Hemoglobin Ql (U) Negative Normal Negative [facility] Comment on above: Order Comment: Speci men Type: URINE SPECIMENOrdering Facility: [facility] Address: [address] [place] [address] Performed By: #### 2 4356-8 ####VILLARREAL LABORATORYCLIA [id number] [address] Ketones Ql (U) Trace Abnormal Negative [facility] Comment on above: Order Comment: Speci men Type: URINE SPECIMENOrdering Facility: [facility] Address: [address] [place] [address] Performed By: #### 2 4356-8 ####VILLARREAL LABORATORYCLIA [id number] [address] Leukocyte esterase Test strip Ql (U) Trace Abnormal Negative [facility] Comment on above: Order Comment: Speci men Type: URINE SPECIMENOrdering Facility: [facility] Address: [address] [place] [address] Performed By: #### 2 4356-8 ####VILLARREAL LABORATORYCLIA [id number] [place] [address] [place] Nitrite Ql (U) Negative Normal Negative [facility] Comment on above: Order Comment: Speci men Type: URINE SPECIMENOrdering Facility: [facility] Address: [address] [place] [address] Performed By: #### 2 4356-8 ####VILLARREAL LABORATORYCLIA [id number] [address] [place] pH (U) 6.5 [pH] Normal 5.0-8.0 [facility] Comment on above: Order Comment: Speci men Type: URINE SPECIMENOrdering Facility: [facility] Address: [address] [place] [address] Performed By: #### 2 4356-8 ####VILLARREAL LABORATORYCLIA [id number] [place] [address] [place] Protein (U) [Mass/Vol] 1+ Abnormal Negative [facility] Comment on above: Order Comment: Speci men Type: URINE SPECIMENOrdering Facility: [facility] Address: [address] [place] [address] Performed By: #### 2 4356-8 ####GREELEY LABORATORYCLIA [id number] [place] [address] [place] RBC LM.HPF (Urine sed) [#/Area] 0-3 /HPF Normal 0-3 /HPF [facility] Comment on above: Order Comment: Speci men Type: URINE SPECIMENOrdering Facility: [facility] Address: [address] [place] [address] Performed By: #### 2 4356-8 ####VILLARREAL LABORATORYCLIA [id number] [address] [place] Specific gravity (U) [Rel density] 1.010 Normal 1.005-1.030 [facility] Comment on above: Order Comment: Speci men Type: URINE SPECIMENOrdering Facility: [facility] Address: [address] [place] [address] Performed By: #### 2 4356-8 ####VILLARREAL LABORATORYCLIA [id number] [address] [place] Urobilinogen Ql (U) 0.2 EU/dL Normal 0.2-1.0 EU/dL [facility] Comment on above: Order Comment: Speci men Type: URINE SPECIMENOrdering Facility: [facility] Address: [address] [place] [address] Performed By: #### 2 4356-8 ####VILLARREAL LABORATORYCLIA [id number] [address] [place] WBC LM.HPF (Urine sed) [#/Area] 0-5 /HPF Normal 0-5 /HPF [facility] Comment on above: Order Comment: Speci men Type: URINE SPECIMENOrdering Facility: [facility] Address: [address] [place] [address] Performed By: #### 2 4356-8 ####GREELEY LABORATORYCLIA [id number] [place] [address] [place] Yeast.budding LM.HPF (Urine sed) [#/Area] Few Abnormal None Seen [facility] Comment on above: Order Comment: Speci men Type: URINE SPECIMENOrdering Facility: [facility] Address: [address] [place] [address] Performed By: #### 2 4356-8 ####VILLARREAL LABORATORYCLIA [id number] [place] [address] [place] XR CHEST 1V FRONTAL PORTon 0 11-30-2024 XR CHEST 1V FRONTAL PORT Normal [facility] Basic metabolic 2000 panelon 11-29-2024 Anion gap [Moles/Vol] 13 mmol/L Normal 8-15 [facility] Comment on above: Order Comment: Speci men Type: BLOOD SPECIMENOrdering Facility: [facility] Address: [address] [place] [address] Performed By: #### 2 4321-2, ####GREELEY LABORATORYCLIA [id number] [place] [address] [place] Calcium [Mass/Vol] 8.8 mg/dL Normal 8.5-10.2 [facility] Comment on above: Order Comment: Speci men Type: BLOOD SPECIMENOrdering Facility: [facility] Address: [address] [place] [address] Performed By: #### 2 4321-2, ####VILLARREAL LABORATORYCLIA [id number] [place] [address] [place] Chloride [Moles/Vol] 95 mmol/L Low 98-107 [facility] Comment on above: Order Comment: Fan meade Type: BLOOD SPECIMENOrdering Facility: [facility] Address: [address] [place] [address] Performed By: #### 2 432-2, ####VILLARREAL LABORATORYCLIA [id number] [place] [address] [place] CO2 [Moles/Vol] 25 mmol/L Normal 22-30 [facility] Comment on above: Order Comment: Fan meade Type: BLOOD SPECIMENOrdering Facility: [facility] Address: [address] [place] [address] Performed By: #### 2 432-2, ####VILLARREAL LABORATORYCLIA [id number] [place] [address] [place] Creatinine [Mass/Vol] 0.80 mg/dL Normal 0.58-0.96 [facility] Comment on above: Order Comment: Fan meade Type: BLOOD SPECIMENOrdering Facility: [facility] Address: [address] [place] [address] Performed By: #### 2 4320-2, ####VILLARREAL LABORATORYCLIA [id number] [address] Creatinine and Glomerular filtration rate.predicted panel (S/P/Bld) 71 mL/min/1.73m??? Normal >=60 [facility] Comment on above: Order Comment: Fan meade Type: BLOOD SPECIMENOrdering Facility: [facility] Address: [address] [place] [address] Result Comment: Hilda mated Glomerular Filtration Rate [...] reflect actual GFR. Performed By: #### 2 4320-2, ####VILLARREAL LABORATORYCLIA [id number] [place] [id number] [place] Glucose [Mass/Vol] 287 mg/dL High 74-99 [facility] Comment on above: Order Comment: Fan meade Type: BLOOD SPECIMENOrdering Facility: [facility] Address: [address] [place] [address] Result Comment: The [place] [employer] (ADA) provides guidance for cutoff [...] Standards of Medical Care in Diabetes 2016, [place] [employer]. Diabetes Care. 2016.39(Suppl 1). Performed By: #### 2 43211-15, ####VILLARREAL LABORATORYCLIA [id number] [place] [id number] [place] Potassium [Moles/Vol] 4.1 mmol/L Normal 3.7-5.1 [facility] Comment on above: Order Comment: Fan meade Type: BLOOD SPECIMENOrdering Facility: [facility] Address: [address] [place] [address] Performed By: #### 2 4320-12, ####VILLARREAL LABORATORYCLIA [id number] [place] [id number] [place] Sodium [Moles/Vol] 133 mmol/L Low 136-144 [facility] Comment on above: Order Comment: Fan meade Type: BLOOD SPECIMENOrdering Facility: [facility] Address: [address] [place] [address] Performed By: #### 2 43211-15, ####VILLARREAL LABORATORYCLIA [id number] [place] [id number] [place] Urea nitrogen [Mass/Vol] 30 mg/dL High 7-21 [facility] Comment on above: Order Comment: Speci men Type: BLOOD SPECIMENOrdering Facility: [facility] Address: [address] [place] [address] Performed By: #### 2 4321-2, 28382-6 ####VILLARREAL LABORATORYCLIA [id number] [place] [address] [place] CASE MANAGEMon 11-29-2024 CASE MANAGEM Normal [facility] CASE MANAGEM Normal [facility] CBC panel Auto (Bld)on 11-29 Erythrocyte distribution width (RBC) [Ratio] 15.2 % High 11.5-15.0 [facility] Comment on above: Order Comment: Speci men Type: BLOOD SPECIMENOrdering Facility: [facility] Address: [address] [place] [address] Performed By: #### 5 8410-2 ####VILLARREAL LABORATORYCLIA [id number] [address] [place] Hematocrit (Bld) [Volume fraction] 27.9 % Low 36.0-46.0 [facility] Comment on above: Order Comment: Speci men Type: BLOOD SPECIMENOrdering Facility: [facility] Address: [address] [place] [address] Performed By: #### 5 8410-2 ####VILLARREAL LABORATORYCLIA [id number] [address] [place] Hemoglobin (Bld) [Mass/Vol] 9.3 g/dL Low 11.5-15.5 [facility] Comment on above: Order Comment: Speci men Type: BLOOD SPECIMENOrdering Facility: [facility] Address: [address] [place] [address] Performed By: #### 5 8410-2 ####VILLARREAL LABORATORYCLIA [id number] [address] [place] MCH (RBC) [Entitic mass] 28.2 pg Normal 26.0-34.0 [facility] Comment on above: Order Comment: Speci men Type: BLOOD SPECIMENOrdering Facility: [facility] Address: [address] [place] [address] Performed By: #### 5 8410-2 ####VILLARREAL LABORATORYCLIA [id number] [address] [place] [facility] MCHC (RBC) [Mass/Vol] 33.3 g/dL Normal 30.5-36.0 [facility] Comment on above: Order Comment: Speci men Type: BLOOD SPECIMENOrdering Facility: [facility] Address: [address] [place] [address] Performed By: #### 5 8410-2 ####VILLARREAL LABORATORYCLIA [id number] [place] [address] [place] MCV (RBC) [Entitic vol] 84.5 fL Normal 80.0-100.0 [facility] Comment on above: Order Comment: Speci men Type: BLOOD SPECIMENOrdering Facility: [facility] Address: [address] [place] [address] Performed By: #### 5 8410-2 ####VILLARREAL LABORATORYCLIA [id number] [address] [place] Nucleated RBC (Bld) [#/Vol] 10*3/uL Normal <0.01 [facility] Comment on above: Order Comment: Speci men Type: BLOOD SPECIMENOrdering Facility: [facility] Address: [address] [place] [address] Performed By: #### 5 8410-2 ####G[facility] LABORATORYCLIA [id number] [address] [place] Platelet mean volume (Bld) [Entitic vol] 8.8 fL Low 9.0-12.7 [facility] Comment on above: Order Comment: Speci men Type: BLOOD SPECIMENOrdering Facility: [facility] Address: [address] [place] [address] Performed By: #### 5 8410-2 ####GREELEY LABORATORYCLIA [id number] [address] [place] Platelets (Bld) [#/Vol] 425 10*3/uL High 150-400 [facility] Comment on above: Order Comment: Speci men Type: BLOOD SPECIMENOrdering Facility: [facility] Address: [address] [place], [place] [address], [place] [address] Performed By: #### 5 8410-2 ####VILLARREAL LABORATORYCLIA [id number] [place] [address] [place] RBC (Bld) [#/Vol] 3.30 10*6/uL Low 3.90-5.[address] [facility] Comment on above: Order Comment: Speci men Type: BLOOD SPECIMENOrdering Facility: [facility] Address: [address] [id number] Performed By: #### 5 8410-2 ####GREELEY LABORATORYCLIA [id number] [place] [id number] [place] WBC (Bld) [#/Vol] 12.17 10*3/uL High 3.70-11.00 [facility] Comment on above: Order Comment: Speci men Type: BLOOD SPECIMENOrdering Facility: [facility] Address: [address] [place] [phone] Performed By: #### 5 8410-2 ####GREELEY LABORATORYCLIA [id number] [address] CONSULT PROGon 11-29-2024 CONSULT PRO Normal [facility] CONSULT PROG Normal [facility] Magnesium SerPl-mCncon 11-29 Magnesium [Mass/Vol] 1.4 mg/dL Low 1.7-2.3 [facility] Comment on above: Order Comment: Speci men Type: BLOOD SPECIMENOrdering Facility: [facility] Address: [address] [place] [phone] Performed By: #### 2 4321-2, ####VILLARREAL LABORATORYCLIA [id number] [place] [address] [place] Basic metabolic 2000 panelon 11-28-2024 Anion gap [Moles/Vol] 14 mmol/L Normal 06-28 [facility] Comment on above: Order Comment: Speci men Type: BLOOD SPECIMENOrdering Facility: [facility] Address: [address] [place] [phone] Performed By: #### 2 4321-2, 91103-2, 2777-1 ####VILLARREAL LABORATORYCLIA [id number] [place] [address] [place] Calcium [Mass/Vol] 9.4 mg/dL Normal 8.5-10.2 [facility] Comment on above: Order Comment: Speci men Type: BLOOD SPECIMENOrdering Facility: [facility] Address: [address] [place] [address] Performed By: #### 2 4321-2, , 2776-11 ####VILLARREAL LABORATORYCLIA [id number] [place] [address] [place] Chloride [Moles/Vol] 96 mmol/L Low 98-107 [facility] Comment on above: Order Comment: Speci men Type: BLOOD SPECIMENOrdering Facility: [facility] Address: [address] [place] [address] Performed By: #### 2 4321-2, , 2776-11 ####VILLARREAL LABORATORYCLIA [id number] [place] [address] [place] CO2 [Moles/Vol] 25 mmol/L Normal 22-30 [facility] Comment on above: Order Comment: Speci men Type: BLOOD SPECIMENOrdering Facility: [facility] Address: [address] [place] [address] Performed By: #### 2 4321-2, , 2776-11 ####VILLARREAL LABORATORYCLIA [id number] [place] [address] [place] Creatinine [Mass/Vol] 0.80 mg/dL Normal 0.58-0.96 [facility] Comment on above: Order Comment: Speci men Type: BLOOD SPECIMENOrdering Facility: [facility] Address: [address] [place] [address] Performed By: #### 2 4321-2, , 2776-11 ####VILLARREAL LABORATORYCLIA [id number] [address] Creatinine and Glomerular filtration rate.predicted panel (S/P/Bld) 71 mL/min/1.73m??? Normal >=60 [facility] Comment on above: Order Comment: Fan meade Type: BLOOD SPECIMENOrdering Facility: [facility] Address: [address] [place] [address] Result Comment: Hilda mated Glomerular Filtration Rate [...] Performed By: #### 2 4321-2, , 2776-11 ####GREELEY LABORATORYCLIA [id number] [place] [address] [place] Glucose [Mass/Vol] 149 mg/dL High 74-99 [facility] Comment on above: Order Comment: Fan meade Type: BLOOD SPECIMENOrdering Facility: [facility] Address: [address] [place] [address] Result Comment: The [place] Diabetes [employer] (ADA) provides guidance for cutoff [...] Standards of Medical Care in Diabetes 2016, [place] [employer]. Diabetes Care. 2016.39(Suppl 1). Performed By: #### 2 4321-2, , 2776-11 ####GREELEY LABORATORYCLIA [id number] [place] [address] [place] Potassium [Moles/Vol] 4.6 mmol/L Normal 3.7-5.1 [facility] Comment on above: Order Comment: [facility] Type: BLOOD SPECIMENOrdering Facility: [facility] Address: [address] [place] [address] Performed By: #### 2 4321-2, 71400-4, 2776-11 ####VILLARREAL LABORATORYCLIA [id number] [place] [address] [place] Sodium [Moles/Vol] 135 mmol/L Low 136-144 [facility] Comment on above: Order Comment: Speci men Type: BLOOD SPECIMENOrdering Facility: [facility] Address: [address] [place] [address] Performed By: #### 2 4321-2, , 2776-11 ####GREELEY LABORATORYCLIA [id number] [place] [address] [place] Urea nitrogen [Mass/Vol] 28 mg/dL High 7-21 [facility] Comment on above: Order Comment: Speci men Type: BLOOD SPECIMENOrdering Facility: [facility] Address: [address] [place] [address] Performed By: #### 2 4321-2, , 2776-11 ####GREELEY LABORATORYCLIA [id number] [address] [place] CASE MANAGEMon 11-28-2024 CASE MANAGEM Normal [facility] CBC W Auto Differential pane l (Bld)on 11-28-2024 Basophils (Bld) [#/Vol] 0.05 10*3/uL Normal <0.11 [facility] Comment on above: Order Comment: Speci men Type: BLOOD SPECIMENOrdering Facility: [facility] Address: [address] [place] [address] Performed By: #### 5 7021-8 ####GREELEY LABORATORYCLIA [id number] [place] [address] [place] Basophils/100 WBC (Bld) 0.5 % Normal [facility] Comment on above: Order Comment: Speci men Type: BLOOD SPECIMENOrdering Facility: [facility] Address: [address] [place] [address] Performed By: #### 5 7021-8 ####VILLARREAL LABORATORYCLIA [id number] [address] [place] [facility] Differential cell count method Nom (Bld) Auto Normal [facility] Comment on above: Order Comment: Speci men Type: BLOOD SPECIMENOrdering Facility: [facility] Address: [address] [place] [address] Performed By: #### 5 7021-8 ####VILLARREAL LABORATORYCLIA [id number] [place] [address] [place] Eosinophils (Bld) [#/Vol] 0.43 10*3/uL Normal <0.46 [facility] Comment on above: Order Comment: Speci men Type: BLOOD SPECIMENOrdering Facility: [facility] Address: [address] [place] [address] Performed By: #### 5 7021-8 ####VILLARREAL LABORATORYCLIA [id number] [address] [place] Eosinophils/100 WBC (Bld) 3.9 % Normal [facility] Comment on above: Order Comment: Speci men Type: BLOOD SPECIMENOrdering Facility: [facility] Address: [address] [place] [address] Performed By: #### 5 7021-8 ####VILLARREAL LABORATORYCLIA [id number] [address] [place] Erythrocyte distribution width (RBC) [Ratio] 15.3 % High 11.5-15.0 [facility] Comment on above: Order Comment: Speci men Type: BLOOD SPECIMENOrdering Facility: [facility] Address: [address] [place] [address] Performed By: #### 5 7021-8 ####VILLARREAL LABORATORYCLIA [id number] [address] [place] Hematocrit (Bld) [Volume fraction] 32.2 % Low 36.0-46.0 [facility] Comment on above: Order Comment: Speci men Type: BLOOD SPECIMENOrdering Facility: [facility] Address: [address] [place] [address] Performed By: #### 5 7021-8 ####VILLARREAL LABORATORYCLIA [id number] [address] [place] Hemoglobin (Bld) [Mass/Vol] 10.4 g/dL Low 11.5-15.5 [facility] Comment on above: Order Comment: Speci men Type: BLOOD SPECIMENOrdering Facility: [facility] Address: [address] [place] [address] Performed By: #### 5 7021-8 ####VILLARREAL LABORATORYCLIA [id number] [address] Immature granulocytes (Bld) [#/Vol] 0.17 10*3/uL High <0.10 [facility] Comment on above: Order Comment: Speci men Type: BLOOD SPECIMENOrdering Facility: [facility] Address: [address] [place] [address] Performed By: #### 5 7021-8 ####VILLARREAL LABORATORYCLIA [id number] [address] Immature granulocytes/100 WBC (Bld) 1.6 % Normal [facility] Comment on above: Order Comment: Speci men Type: BLOOD SPECIMENOrdering Facility: [facility] Address: [address] [place] [address] Performed By: #### 5 7021-8 ####VILLARREAL LABORATORYCLIA [id number] [place] [address] [place] Lymphocytes (Bld) [#/Vol] 0.95 10*3/uL Low 1.00-4.00 [facility] Comment on above: Order Comment: Speci men Type: BLOOD SPECIMENOrdering Facility: [facility] Address: [address] [place] [address] Performed By: #### 5 7021-8 ####VILLARREAL LABORATORYCLIA [id number] [address] Lymphocytes/100 WBC (Bld) 8.7 % Normal [facility] Comment on above: Order Comment: Speci men Type: BLOOD SPECIMENOrdering Facility: [facility] Address: [address] [place] [address] Performed By: #### 5 7021-8 ####VILLARREAL LABORATORYCLIA [id number] [place] [address] [place] MCH (RBC) [Entitic mass] 27.7 pg Normal 26.0-34.0 [facility] Comment on above: Order Comment: Speci men Type: BLOOD SPECIMENOrdering Facility: [facility] Address: [address] [place] [address] Performed By: #### 5 7021-8 ####[facility] LABORATORYCLIA [id number] [address] [place] MCHC (RBC) [Mass/Vol] 32.3 g/dL Normal 30.5-36.0 [facility] Comment on above: Order Comment: Speci men Type: BLOOD SPECIMENOrdering Facility: [facility] Address: [address] [place] [address] Performed By: #### 5 7021-8 ####VILLARREAL LABORATORYCLIA [id number] [address] MCV (RBC) [Entitic vol] 85.6 fL Normal 80.0-100.0 [facility] Comment on above: Order Comment: Speci men Type: BLOOD SPECIMENOrdering Facility: [facility] Address: [address] [place] [address] Performed By: #### 5 7021-8 ####VILLARREAL LABORATORYCLIA [id number] [address] [place] Monocytes (Bld) [#/Vol] 0.89 10*3/uL High <0.87 [facility] Comment on above: Order Comment: Speci men Type: BLOOD SPECIMENOrdering Facility: [facility] Address: [address] [place] [address] Performed By: #### 5 7021-8 ####VILLARREAL LABORATORYCLIA [id number] [address] Monocytes/100 WBC (Bld) 8.1 % Normal [facility] Comment on above: Order Comment: Speci men Type: BLOOD SPECIMENOrdering Facility: [facility] Address: [address] [place] [address] Performed By: #### 5 7021-8 ####VILLARREAL LABORATORYCLIA [id number] [address] [place] Neutrophils (Bld) [#/Vol] 8.45 10*3/uL High 1.45-7.50 [facility] Comment on above: Order Comment: Speci men Type: BLOOD SPECIMENOrdering Facility: [facility] Address: [address] [place] [address] Performed By: #### 5 7021-8 ####VILLARREAL LABORATORYCLIA [id number] [place] [id number] [place] Neutrophils/100 WBC (Bld) 77.2 % Normal [facility] Comment on above: Order Comment: Speci men Type: BLOOD SPECIMENOrdering Facility: [facility] Address: [address] [place] [address] Performed By: #### 5 7021-8 ####VILLARREAL LABORATORYCLIA [id number] [place] [address] [place] Nucleated RBC (Bld) [#/Vol] 10*3/uL Normal <0.01 [facility] Comment on above: Order Comment: Speci men Type: BLOOD SPECIMENOrdering Facility: [facility] Address: [address] [place] [address] Performed By: #### 5 7021-8 ####VILLARREAL LABORATORYCLIA [id number] [place] [address] [place] Nucleated RBC/100 WBC (Bld) [Ratio] 0.0 /100 WBC Normal [facility] Comment on above: Order Comment: Speci men Type: BLOOD SPECIMENOrdering Facility: [facility] Address: [address] [place] [address] Performed By: #### 5 7021-8 ####VILLARREAL LABORATORYCLIA [id number] [place] [address] [place] Platelet mean volume (Bld) [Entitic vol] 9.0 fL Normal 9.0-12.7 [facility] Comment on above: Order Comment: Speci men Type: BLOOD SPECIMENOrdering Facility: [facility] Address: [address] [place] [address] Performed By: #### 5 7021-8 ####VILLARREAL LABORATORYCLIA [id number] [place] [address] Platelets (Bld) [#/Vol] 413 10*3/uL High 150-400 [facility] Comment on above: Order Comment: Speci men Type: BLOOD SPECIMENOrdering Facility: [facility] Address: [address] [place] [address] Performed By: #### 5 7021-8 ####VILLARREAL LABORATORYCLIA [id number] [address] [place] RBC (Bld) [#/Vol] 3.76 10*6/uL Low 3.90-5.[address] [facility] Comment on above: Order Comment: Speci men Type: BLOOD SPECIMENOrdering Facility: [facility] Address: [address] [place] [address] [place] [address] Performed By: #### 5 7021-8 ####[facility] LABORATORYCLIA [id number] [address] WBC (Bld) [#/Vol] 10.94 10*3/uL Normal 3.70-11.00 [facility] Comment on above: Order Comment: Speci men Type: BLOOD SPECIMENOrdering Facility: [facility] Address: [address] [place] [address] Performed By: #### 5 7021-8 ####VILLARREAL LABORATORYCLIA [id number] [address] [place] CONSULT PROGon 11-28-2024 CONSULT PROG Normal [facility] CONSULT PROG Normal [facility] CONSULT PROG Normal [facility] Magnesium SerPl-mCncon 11-28 Magnesium [Mass/Vol] 1.9 mg/dL Normal 1.7-2.3 [facility] Comment on above: Order Comment: Speci men Type: BLOOD SPECIMENOrdering Facility: [facility] Address: [address] [place] [address] [place] [address] Performed By: #### 2 4321-2, 85963-6, 2777-1 ####VILLARREAL LABORATORYCLIA [id number] [address] [place] Phosphate SerPl-mCncon 11-28 Phosphate [Mass/Vol] 3.4 mg/dL Normal 2.7-4.8 [facility] Comment on above: Order Comment: Speci men Type: BLOOD SPECIMENOrdering Facility: [facility] Address: [address] [place] [address] Performed By: #### 2 4321-2, , 2776-11 ####GREE[facility] LABORATORYCLIA [id number] [place] [address] [place] THERAPY NTon 11-28-2024 THERAPY NT Normal [facility] THERAPY NT Normal [facility] ALLIED HEALTHon 11-27-2024 ALLIED HEALTH [facility] ANES POSTPROC EVALon 025 ANES POSTPROC EVAL [facility] ANES PRE-OPon 11-27-2024 ANES PRE-OP [facility] Bacteria Spec Anaerobe Culto n 11-27-2024 Bacteria identified Anaer cx Nom (Unsp spec) Negative Normal [facility] Comment on above: Performed By: #### 6 35-3, 6462-6 ####[facility] LABCLIA [id number] [address] [address] [place] Bacteria Wnd Culton 11-27-19 25 Bacteria identified Cx Nom (Wound) Abnormal [facility] Comment on above: Performed By: #### 6 35-3, 6462-6 ####[facility] LABCLIA [id number] [address] [address] [place] Basic metabolic 2000 panelon 11-27-2024 Anion gap [Moles/Vol] 13 mmol/L Normal - [facility] Comment on above: Order Comment: Speci men Type: BLOOD SPECIMENOrdering Facility: [facility] Address: [address] [place] [address] Performed By: #### 2 4321-2, , 2776-11 ####[facility] LABORATORYCLIA [id number] [place] [address] [place] Calcium [Mass/Vol] 9.0 mg/dL Normal 8.5-10.2 [facility] Comment on above: Order Comment: Speci men Type: BLOOD SPECIMENOrdering Facility: [facility] Address: [address] [place], [place] [address] Performed By: #### 2 4321-2, , 2776-11 ####VILLARREAL LABORATORYCLIA [id number] [place] [address] [place] Chloride [Moles/Vol] 94 mmol/L Low 98-107 [facility] Comment on above: Order Comment: Speci men Type: BLOOD SPECIMENOrdering Facility: [facility] Address: [address] [place] [address] Performed By: #### 2 4321-2, , 2776-11 ####VILLARRE[facility] LABORATORYCLIA [id number] [place] [address] [place] CO2 [Moles/Vol] 25 mmol/L Normal 22-30 [facility] Comment on above: Order Comment: Speci men Type: BLOOD SPECIMENOrdering Facility: [facility] Address: [address] [place] [address] Performed By: #### 2 4321-2, , 2776-11 ####VILLARREAL LABORATORYCLIA [id number] [place] [address] [place] Creatinine [Mass/Vol] 0.76 mg/dL Normal 0.58-0.96 [facility] Comment on above: Order Comment: Speci men Type: BLOOD SPECIMENOrdering Facility: [facility] Address: [address] [place] [address] Performed By: #### 2 4321-2, , 2776-11 ####VILLARREAL LABORATORYCLIA [id number] [address] Creatinine and Glomerular filtration rate.predicted panel (S/P/Bld) 75 mL/min/1.73m??? Normal >=60 [facility] Comment on above: Order Comment: Speci men Type: BLOOD SPECIMENOrdering Facility: [facility] Address: [address] [place] [address] Result Comment: Hilda mated Glomerular Filtration Rate [...] Performed By: #### 2 4321-2, , 2776-11 ####[facility] LABORATORYCLIA [id number] [place] [address] [place] Glucose [Mass/Vol] 251 mg/dL High 74-99 [facility] Comment on above: Order Comment: Fan [place] Type: BLOOD SPECIMENOrdering Facility: [facility] Address: [address] [place] [address] Result Comment: The [place] [employer] (ADA) provides guidance for cutoff [...] Standards of Medical Care in Diabetes 2016, [place] [employer]. Diabetes Care. 2016.39(Suppl 1). Performed By: #### 2 4321-2, , 2776-11 ####[facility] LABORATORYCLIA [id number] [place] [address] [place] Potassium [Moles/Vol] 3.6 mmol/L Low 3.7-5.1 [facility] Comment on above: Order Comment: Fan [facility] Type: BLOOD SPECIMENOrdering Facility: [facility] Address: [address] [place] [address] Performed By: #### 2 4321-2, , 2776-11 ####VILLARREAL LABORATORYCLIA [id number] [place] [address] [place] Sodium [Moles/Vol] 132 mmol/L Low 136-144 [facility] Comment on above: Order Comment: Speci men Type: BLOOD SPECIMENOrdering Facility: [facility] Address: [address] [place] [address] Performed By: #### 2 4321-2, , 2776-11 ####VILLARREAL LABORATORYCLIA [id number] [address] [place] [facility] Urea nitrogen [Mass/Vol] 29 mg/dL High 7-21 [facility] Comment on above: Order Comment: Speci men Type: BLOOD SPECIMENOrdering Facility: [facility] Address: [address] [place] [address] Performed By: #### 2 4321-2, , 2776-11 ####VILLARREAL LABORATORYCLIA [id number] [address] [place] CASE MANAGEMon 11-27-2024 CASE MANAGEM Normal [facility] CBC panel Auto (Bld)on 11-27 Erythrocyte distribution width (RBC) [Ratio] 15.1 % High 11.5-15.0 [facility] Comment on above: Order Comment: Speci men Type: BLOOD SPECIMENOrdering Facility: [facility] Address: [address] [place] [address] Performed By: #### 5 8410-2 ####VILLARREAL LABORATORYCLIA [id number] [address] [place] Hematocrit (Bld) [Volume fraction] 29.3 % Low 36.0-46.0 [facility] Comment on above: Order Comment: Speci men Type: BLOOD SPECIMENOrdering Facility: [facility] Address: [address] [place] [address] Performed By: #### 5 8410-2 ####VILLARREAL LABORATORYCLIA [id number] [address] [place] Hemoglobin (Bld) [Mass/Vol] 9.9 g/dL Low 11.5-15.5 [facility] Comment on above: Order Comment: Speci men Type: BLOOD SPECIMENOrdering Facility: [facility] Address: [address] [place] [address] Performed By: #### 5 8410-2 ####VILLARREAL LABORATORYCLIA [id number] [address] MCH (RBC) [Entitic mass] 28.2 pg Normal 26.0-34.0 [facility] Comment on above: Order Comment: Speci men Type: BLOOD SPECIMENOrdering Facility: [facility] Address: [address] [place] [address] Performed By: #### 5 8410-2 ####VILLARREAL LABORATORYCLIA [id number] [address] MCHC (RBC) [Mass/Vol] 33.8 g/dL Normal 30.5-36.0 [facility] Comment on above: Order Comment: Speci men Type: BLOOD SPECIMENOrdering Facility: [facility] Address: [address] [place] [address] Performed By: #### 5 8410-2 ####VILLARREAL LABORATORYCLIA [id number] [address] MCV (RBC) [Entitic vol] 83.5 fL Normal 80.0-100.0 [facility] Comment on above: Order Comment: Speci men Type: BLOOD SPECIMENOrdering Facility: [facility] Address: [address] [place] [address] Performed By: #### 5 8410-2 ####VILLARRE[facility] LABORATORYCLIA [id number] [address] Nucleated RBC (Bld) [#/Vol] 10*3/uL Normal <0.01 [facility] Comment on above: Order Comment: Speci men Type: BLOOD SPECIMENOrdering Facility: [facility] Address: [address] [place] [address] Performed By: #### 5 8410-2 ####VILLARREAL LABORATORYCLIA [id number] [address] Platelet mean volume (Bld) [Entitic vol] 9.1 fL Normal 9.0-12.7 [facility] Comment on above: Order Comment: Speci men Type: BLOOD SPECIMENOrdering Facility: [facility] Address: [address] [place] [address] Performed By: #### 5 8410-2 ####[facility] LABORATORYCLIA [id number] [place] [id number] [facility] Platelets (Bld) [#/Vol] 383 10*3/uL Normal 150-400 [facility] Comment on above: Order Comment: Speci men Type: BLOOD SPECIMENOrdering Facility: [facility] Address: [address] [place] [address] Performed By: #### 5 8410-2 ####[facility] LABORATORYCLIA [id number] [address] [place] RBC (Bld) [#/Vol] 3.51 10*6/uL Low 3.90-5.[address] [facility] Comment on above: Order Comment: Speci men Type: BLOOD SPECIMENOrdering Facility: [facility] Address: [address] [place] [address] Performed By: #### 5 8410-2 ####[facility] LABORATORYCLIA [id number] [address] WBC (Bld) [#/Vol] 11.65 10*3/uL High 3.70-11.00 [facility] Comment on above: Order Comment: Speci men Type: BLOOD SPECIMENOrdering Facility: [facility] Address: [address] [place] [address] Performed By: #### 5 8410-2 ####[facility] LABORATORYCLIA [id number] [address] OF [facility] CONSULT PROGon 11-27-2024 CONSULT PROG Normal [facility] Magnesium SerPl-mCncon 11-27 Magnesium [Mass/Vol] 1.6 mg/dL Low 1.7-2.3 [facility] Comment on above: Order Comment: Speci men Type: BLOOD SPECIMENOrdering Facility: [facility] Address: [address] [place] [address] Performed By: #### 2 4321-2, 56290-4, 2777-1 ####[facility] LABORATORYCLIA [id number] [address] [place] NUTRITIONon 11-27-2024 NUTRITION Normal [facility] OPERATIVE NOon 11-27-2024 OPERATIVE NO Normal [facility] Phosphate SerPl-mCncon 11-27 Phosphate [Mass/Vol] 3.7 mg/dL Normal 2.7-4.8 [facility] Comment on above: Order Comment: Speci men Type: BLOOD SPECIMENOrdering Facility: [facility] Address: [address] [place] [address] Performed By: #### 2 4321-2, 31453-8, 2776-11 ####[facility] LABORATORYCLIA [id number] [place] [address] [place] THERAPY NTon 11-27-2024 THERAPY NT Normal [facility] US ABD RIGHT UPPER QUADRANTo n 11-27-2024 US ABD RIGHT UPPER QUADRANT Normal [facility] US ABD SPLEEN -NBon 11-27-19 US ABD SPLEEN -NB [facility] Basic metabolic 2000 panelon 11-26-2024 Anion gap [Moles/Vol] 10 mmol/L Normal 8-15 [facility] Comment on above: Order Comment: Speci men Type: BLOOD SPECIMENOrdering Facility: [facility] Address: [address] [place] [address] Performed By: #### 2 4321-2, , 2776-11 ####[facility] LABORATORYCLIA [id number] [place] [address] [place] Calcium [Mass/Vol] 9.2 mg/dL Normal 8.5-10.2 [facility] Comment on above: Order Comment: Speci men Type: BLOOD SPECIMENOrdering Facility: [facility] Address: [address] [place] [address] Performed By: #### 2 4321-2, , 2776-11 ####[facility] LABORATORYCLIA [id number] [place] [address] [place] Chloride [Moles/Vol] 94 mmol/L Low 98-107 [facility] Comment on above: Order Comment: Speci men Type: BLOOD SPECIMENOrdering Facility: [facility] Address: [address] [place] [address] Performed By: #### 2 4321-2, , 2776-11 ####VILLARREAL LABORATORYCLIA [id number] [place] [address] [place] CO2 [Moles/Vol] 28 mmol/L Normal 22-30 [facility] Comment on above: Order Comment: Fan [place]ade Type: BLOOD SPECIMENOrdering Facility: [facility] Address: [address] [place] [address] Performed By: #### 2 4321-2, , 2776-11 ####VILLARRE[facility] LABORATORYCLIA [id number] [place] [address] [place] Creatinine [Mass/Vol] 0.98 mg/dL High 0.58-0.96 [facility] Comment on above: Order Comment: Fan [place] Type: BLOOD SPECIMENOrdering Facility: [facility] Address: [address] [place] [address] Performed By: #### 2 4321-2, , 2776-11 ####[facility] LABORATORYCLIA [id number] [address] STATES OF [facility] Creatinine and Glomerular filtration rate.predicted panel (S/P/Bld) 56 mL/min/1.73m??? Low >=60 [facility] Comment on above: Order Comment: Fan [place] Type: BLOOD SPECIMENOrdering Facility: [facility] Address: [address] [place] [address] Result Comment: Hilda mated Glomerular Filtration Rate [...] #### 2 4321-2, , 2776-11 ####VILLARRE[facility] LABORATORYCLIA [id number] [place] [address] [place] Glucose [Mass/Vol] 244 mg/dL High 74-99 [facility] Comment on above: Order Comment: Speci men Type: BLOOD SPECIMENOrdering Facility: [facility] Address: [address] [place] [id number] Result Comment: The [place] Diabetes [employer] (ADA) provides guidance for cutoff [...] Standards of Medical Care in Diabetes 2016, [place] [employer]. Diabetes Care. 2016.39(Suppl 1). Performed By: #### 2 4321-2, , 2776-11 ####VILLARRE[facility] LABORATORYCLIA [id number] [place] [address] [place] Potassium [Moles/Vol] 4.4 mmol/L Normal 3.7-5.1 [facility] Comment on above: Order Comment: Fan [place]ade Type: BLOOD SPECIMENOrdering Facility: [facility] Address: [address] [place] [address] Performed By: #### 2 4321-2, , 2776-11 ####VILLARRE[facility] LABORATORYCLIA [id number] [place] [address] [place] Sodium [Moles/Vol] 132 mmol/L Low 136-144 [facility] Comment on above: Order Comment: Fan men Type: BLOOD SPECIMENOrdering Facility: [facility] Address: [address] [place], [place] [address] Performed By: #### 2 4321-2, , 2776-11 ####VILLARRE[facility] LABORATORYCLIA [id number] [place] [address] [place] Urea nitrogen [Mass/Vol] 37 mg/dL High 7-21 [facility] Comment on above: Order Comment: Fan men Type: BLOOD SPECIMENOrdering Facility: [facility] Address: [address] [place] [address] Performed By: #### 2 4321-2, 87711-4, 2777-1 ####VILLAR[facility] LABORATORYCLIA [id number] [place] [address] [place] CASE MANAGEMon 11-26-2024 CASE MANAGEM Normal [facility] CBC W Auto Differential pane l (Bld)on 11-26-2024 Basophils (Bld) [#/Vol] 0.04 10*3/uL Normal <0.11 [facility] Comment on above: Order Comment: Speci men Type: BLOOD SPECIMENOrdering Facility: [facility] Address: [address] [place] [address] Performed By: #### 5 7021-8 ####VILLAR[facility] LABORATORYCLIA [id number] [address] STATES [facility] Basophils/100 WBC (Bld) 0.4 % Normal [facility] Comment on above: Order Comment: Speci men Type: BLOOD SPECIMENOrdering Facility: [facility] Address: [address] [place] [address] Performed By: #### 5 7021-8 ####VILLAR[facility] LABORATORYCLIA [id number] [address] STATES OF [facility] Differential cell count method Nom (Bld) Auto Normal [facility] Comment on above: Order Comment: Speci men Type: BLOOD SPECIMENOrdering Facility: [facility] Address: [address] [place] [address] Performed By: #### 5 7021-8 ####VILL[facility] LABORATORYCLIA [id number] [place] [address] [place] Eosinophils (Bld) [#/Vol] 0.41 10*3/uL Normal <0.46 [facility] Comment on above: Order Comment: Speci men Type: BLOOD SPECIMENOrdering Facility: [facility] Address: [address] [place] [address] Performed By: #### 5 7021-8 ####VILLAR[facility] LABORATORYCLIA [id number] [address] [place] Eosinophils/100 WBC (Bld) 3.9 % Normal [facility] Comment on above: Order Comment: Speci men Type: BLOOD SPECIMENOrdering Facility: [facility] Address: [address] [place] [address] Performed By: #### 5 7021-8 ####VILL[facility] LABORATORYCLIA [id number] [place] [address] [place] Erythrocyte distribution width (RBC) [Ratio] 14.9 % Normal 11.5-15.0 [facility] Comment on above: Order Comment: Speci men Type: BLOOD SPECIMENOrdering Facility: [facility] Address: [address] [place] [address] Performed By: #### 5 7021-8 ####VILLAR[facility] LABORATORYCLIA [id number] [place] [address] [place] Hematocrit (Bld) [Volume fraction] 30.0 % Low 36.0-46.0 [facility] Comment on above: Order Comment: Speci men Type: BLOOD SPECIMENOrdering Facility: [facility] Address: [address] [place] [address] Performed By: #### 5 7021-8 ####VILL[facility] LABORATORYCLIA [id number] [place] [address] [place] Hemoglobin (Bld) [Mass/Vol] 10.1 g/dL Low 11.5-15.5 [facility] Comment on above: Order Comment: Speci men Type: BLOOD SPECIMENOrdering Facility: [facility] Address: [address] [place] [address] Performed By: #### 5 7021-8 ####VILLARRE[facility] LABORATORYCLIA [id number] [place] [address] [place] Immature granulocytes (Bld) [#/Vol] 0.09 10*3/uL Normal <0.10 [facility] Comment on above: Order Comment: Speci men Type: BLOOD SPECIMENOrdering Facility: [facility] Address: [address] [place] [address] Performed By: #### 5 7021-8 ####VILLARRE[facility] LABORATORYCLIA [id number] [place] [address] [place] Immature granulocytes/100 WBC (Bld) 0.9 % Normal [facility] Comment on above: Order Comment: Speci men Type: BLOOD SPECIMENOrdering Facility: [facility] REHABILITATION Address: [address] [place] [address] Performed By: #### 5 7021-8 ####VILLARREAL LABORATORYCLIA [id number] [address] Lymphocytes (Bld) [#/Vol] 1.04 10*3/uL Normal 1.00-4.00 [facility] Comment on above: Order Comment: Speci men Type: BLOOD SPECIMENOrdering Facility: [facility] Address: [address] [place] [address] Performed By: #### 5 7021-8 ####VILLARREAL LABORATORYCLIA [id number] [address] Lymphocytes/100 WBC (Bld) 9.9 % Normal [facility] Comment on above: Order Comment: Speci men Type: BLOOD SPECIMENOrdering Facility: [facility] Address: [address] [place] [address] Performed By: #### 5 7021-8 ####VILLARREAL LABORATORYCLIA [id number] [address] MCH (RBC) [Entitic mass] 28.1 pg Normal 26.0-34.0 [facility] Comment on above: Order Comment: Speci men Type: BLOOD SPECIMENOrdering Facility: [facility] Address: [address] [place] [address] Performed By: #### 5 7021-8 ####VILLARREAL LABORATORYCLIA [id number] [address] MCHC (RBC) [Mass/Vol] 33.7 g/dL Normal 30.5-36.0 [facility] Comment on above: Order Comment: Speci men Type: BLOOD SPECIMENOrdering Facility: [facility] Address: [address] [place] [address] Performed By: #### 5 7021-8 ####VILLARREAL LABORATORYCLIA [id number] [address] MCV (RBC) [Entitic vol] 83.3 fL Normal 80.0-100.0 [facility] Comment on above: Order Comment: Speci men Type: BLOOD SPECIMENOrdering Facility: [facility] Address: [address] [place] [address] Performed By: #### 5 7021-8 ####VILLARREAL LABORATORYCLIA [id number] [place] [address] [place] Monocytes (Bld) [#/Vol] 0.93 10*3/uL High <0.87 [facility] Comment on above: Order Comment: Speci men Type: BLOOD SPECIMENOrdering Facility: [facility] Address: [address] [place] [address] Performed By: #### 5 7021-8 ####VILLARREAL LABORATORYCLIA [id number] [address] [place] Monocytes/100 WBC (Bld) 8.9 % Normal [facility] Comment on above: Order Comment: Speci men Type: BLOOD SPECIMENOrdering Facility: [facility] Address: [address] [place] [address] Performed By: #### 5 7021-8 ####VILLARREAL LABORATORYCLIA [id number] [place] [address] [place] Neutrophils (Bld) [#/Vol] 7.97 10*3/uL High 1.45-7.50 [facility] Comment on above: Order Comment: Speci men Type: BLOOD SPECIMENOrdering Facility: [facility] Address: [address] [place] [address] Performed By: #### 5 7021-8 ####VILLARREAL LABORATORYCLIA [id number] [place] [address] [place] Neutrophils/100 WBC (Bld) 76.0 % Normal [facility] Comment on above: Order Comment: Speci men Type: BLOOD SPECIMENOrdering Facility: [facility] Address: [address] [place] [address] Performed By: #### 5 7021-8 ####VILLARREAL LABORATORYCLIA [id number] [place] [address] [place] Nucleated RBC (Bld) [#/Vol] 10*3/uL Normal <0.01 [facility] Comment on above: Order Comment: Speci men Type: BLOOD SPECIMENOrdering Facility: [facility] Address: [address] [place] [address] Performed By: #### 5 7021-8 ####VILLARREAL LABORATORYCLIA [id number] [address] [place] Nucleated RBC/100 WBC (Bld) [Ratio] 0.0 /100 WBC Normal [facility] Comment on above: Order Comment: Speci men Type: BLOOD SPECIMENOrdering Facility: [facility] Address: [address] [place] [address] Performed By: #### 5 7021-8 ####VILLARREAL LABORATORYCLIA [id number] [place] [address] [place] Platelet mean volume (Bld) [Entitic vol] 9.0 fL Normal 9.0-12.7 [facility] Comment on above: Order Comment: Speci men Type: BLOOD SPECIMENOrdering Facility: [facility] Address: [address] [place] [address] Performed By: #### 5 7021-8 ####VILLARREAL LABORATORYCLIA [id number] [place] [address] [place] Platelets (Bld) [#/Vol] 381 10*3/uL Normal 150-400 [facility] Comment on above: Order Comment: Speci men Type: BLOOD SPECIMENOrdering Facility: [facility] Address: [address] [place] [address] Performed By: #### 5 7021-8 ####VILLARREAL LABORATORYCLIA [id number] [place] [address] [place] RBC (Bld) [#/Vol] 3.60 10*6/uL Low 3.90-5.[address] [facility] Comment on above: Order Comment: Speci men Type: BLOOD SPECIMENOrdering Facility: [facility] Address: [address] [place] [address] Performed By: #### 5 7021-8 ####VILLARREAL LABORATORYCLIA [id number] [place] [address] [place] WBC (Bld) [#/Vol] 10.48 10*3/uL Normal 3.70-11.00 [facility] Comment on above: Order Comment: Speci men Type: BLOOD SPECIMENOrdering Facility: [facility] Address: [address] [place] [address] Performed By: #### 5 7021-8 ####GREELEY LABORATORYCLIA [id number] [place] [address] [facility] [place] CNPNon 11-26-2024 CNPN Telephone (HEMAST) YUSUF MEDINA ([id number]) 1935 [facility] Date Time Provider Department 11/26/24 [facility] HEMAST During your visit today, we recorded the following information about you: Sue Urbina 11/26/2024 9:54 AM Signed 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 Pt is still inpatient. When she is discharged she will be sent to a rehab and will not be able to make appts. Any time soon. Please advise for further requirements. Grupo Mendez MD 11/26/2024 5:[address] Mendez reviewed labs from [facility]. Dr. Mendez recommended for patient to [...] this patient by: CAREGIVER José Miguel Swanson [facility] Problem List As Of Date [...] (capsule) sprain (more content not included)... Normal [facility] ABD/PEL WO IVCONon 2024 CT ABD/PEL WO [facility] Lipase SerPl-cCncon 11-26-19 25 Lipase [Catalytic activity/Vol] 22 U/L Normal 16-61 [facility] Comment on above: Order Comment: Speci men Type: BLOOD SPECIMENOrdering Facility: [facility] Address: [address] [place] [address] Performed By: #### 3 040-3 ####GREELEY LABORATORYCLIA [id number] [address] [place] Magnesium SerPl-mCncon 11-26 Magnesium [Mass/Vol] 2.0 mg/dL Normal 1.7-2.3 [facility] Comment on above: Order Comment: Speci men Type: BLOOD SPECIMENOrdering Facility: [facility] Address: [address] [place] [address] Performed By: #### 2 4321-2, 18634-0, 2777-1 ####GREELEY LABORATORYCLIA [id number] [place] [address] [place] NURSING [facility] Phosphate SerPl-mCncon 11-26 Phosphate [Mass/Vol] 3.0 mg/dL Normal 2.7-4.8 [facility] Comment on above: Order Comment: Speci men Type: BLOOD SPECIMENOrdering Facility: [facility] Address: [address] [place] [address] Performed By: #### 2 4321-2, 20654-0, 2777-1 ####VILLARREAL LABORATORYCLIA [id number] [place] [address] [place] Basic metabolic 2000 panelon 11-25-2024 Anion gap [Moles/Vol] 12 mmol/L Normal 8-15 [facility] Comment on above: Order Comment: Speci men Type: BLOOD SPECIMENOrdering Facility: [facility] Address: [address] [place] [address] Performed By: #### 2 4321-2, ####VILLARREAL LABORATORYCLIA [id number] [place] [address] [place] Calcium [Mass/Vol] 8.9 mg/dL Normal 8.5-10.2 [facility] Comment on above: Order Comment: Speci men Type: BLOOD SPECIMENOrdering Facility: [facility] Address: [address] [place] [address] Performed By: #### 2 4321-2, ####VILLARREAL LABORATORYCLIA [id number] [place] [address] [place] Chloride [Moles/Vol] 94 mmol/L Low 98-107 [facility] Comment on above: Order Comment: Speci men Type: BLOOD SPECIMENOrdering Facility: [facility] Address: [address] [place] [address] Performed By: #### 2 4321-2, ####VILLARREAL LABORATORYCLIA [id number] [place] [address] [place] CO2 [Moles/Vol] 24 mmol/L Normal 22-30 [facility] Comment on above: Order Comment: Speci men Type: BLOOD SPECIMENOrdering Facility: [facility] Address: [address] [place] [address] Performed By: #### 2 4321-2, ####GREELEY LABORATORYCLIA [id number] [place] [address] [place] Creatinine [Mass/Vol] 0.79 mg/dL Normal 0.58-0.96 [facility] Comment on above: Order Comment: Fan meade Type: BLOOD SPECIMENOrdering Facility: [facility] Address: [address] [place] [address] Performed By: #### 2 4321-2, ####GREELEY LABORATORYCLIA [id number] [place] [address] [facility] Creatinine and Glomerular filtration rate.predicted panel (S/P/Bld) 72 mL/min/1.73m??? Normal >=60 [facility] Comment on above: Order Comment: Fan meade Type: BLOOD SPECIMENOrdering Facility: [facility] Address: [address] [place] [address] Result Comment: Hilda mated Glomerular Filtration Rate [...] actual GFR. Performed By: #### 2 4321-2, ####GREELEY LABORATORYCLIA [id number] [place] [id number] [place] Glucose [Mass/Vol] 251 mg/dL High 74-99 [facility] Comment on above: Order Comment: Fan meade Type: BLOOD SPECIMENOrdering Facility: [facility] Address: [address] [place] [address] Result Comment: The [place] [employer] (ADA) provides guidance for cutoff [...] Standards of Medical Care in Diabetes 2016, [place] [employer]. Diabetes Care. 2016.39(Suppl 1). Performed By: #### 2 4321-2, ####VILLARREAL LABORATORYCLIA [id number] [address] [place] Potassium [Moles/Vol] 3.9 mmol/L Normal 3.7-5.1 [facility] Comment on above: Order Comment: Speci men Type: BLOOD SPECIMENOrdering Facility: [facility] Address: [address] [place] [address] Performed By: #### 2 432-2, ####VILLARREAL LABORATORYCLIA [id number] [address] Sodium [Moles/Vol] 130 mmol/L Low 136-144 [facility] Comment on above: Order Comment: Speci men Type: BLOOD SPECIMENOrdering Facility: [facility] Address: [address] [place] [address] Performed By: #### 2 432-, ####VILLARREAL LABORATORYCLIA [id number] [address] [place] [facility] Urea nitrogen [Mass/Vol] 32 mg/dL High 7-21 [facility] Comment on above: Order Comment: Speci men Type: BLOOD SPECIMENOrdering Facility: [facility] Address: [address] [place] [address] Performed By: #### 2 4320-2, ####VILLARREAL LABORATORYCLIA [id number] [place] [address] [place] CBC W Auto Differential pane l (Bld)on 11-25-2024 Basophils (Bld) [#/Vol] 0.05 10*3/uL Normal <0.11 [facility] Comment on above: Order Comment: Speci men Type: BLOOD SPECIMENOrdering Facility: [facility] Address: [address] [place] [address] Performed By: #### 5 7021-8 ####VILLARREAL LABORATORYCLIA [id number] [place] [address] [place] Basophils/100 WBC (Bld) 0.4 % Normal [facility] Comment on above: Order Comment: Speci men Type: BLOOD SPECIMENOrdering Facility: [facility] Address: [address] [place] [address] Performed By: #### 5 7021-8 ####VILLARREAL LABORATORYCLIA [id number] [address] Differential cell count method Nom (Bld) Auto Normal [facility] Comment on above: Order Comment: Speci men Type: BLOOD SPECIMENOrdering Facility: [facility] Address: [address] [place] [address] Performed By: #### 5 7021-8 ####VILLARREAL LABORATORYCLIA [id number] [place] [address] [place] Eosinophils (Bld) [#/Vol] 0.11 10*3/uL Normal <0.46 [facility] Comment on above: Order Comment: Speci men Type: BLOOD SPECIMENOrdering Facility: [facility] Address: [address] [place] [address] Performed By: #### 5 7021-8 ####VILLARREAL LABORATORYCLIA [id number] [address] Eosinophils/100 WBC (Bld) 0.8 % Normal [facility] Comment on above: Order Comment: Speci men Type: BLOOD SPECIMENOrdering Facility: [facility] Address: [address] [place] [address] Performed By: #### 5 7021-8 ####VILLARREAL LABORATORYCLIA [id number] [address] [place] Erythrocyte distribution width (RBC) [Ratio] 14.9 % Normal 11.5-15.0 [facility] Comment on above: Order Comment: Speci men Type: BLOOD SPECIMENOrdering Facility: [facility] Address: [address] [place] [address] Performed By: #### 5 7021-8 ####VILLARREAL LABORATORYCLIA [id number] [address] [place] Hematocrit (Bld) [Volume fraction] 31.8 % Low 36.0-46.0 [facility] Comment on above: Order Comment: Speci men Type: BLOOD SPECIMENOrdering Facility: [facility] Address: [address] [place] [address] Performed By: #### 5 7021-8 ####VILLARREAL LABORATORYCLIA [id number] [place] [address] [place] Hemoglobin (Bld) [Mass/Vol] 10.5 g/dL Low 11.5-15.5 [facility] Comment on above: Order Comment: Speci men Type: BLOOD SPECIMENOrdering Facility: [facility] Address: [address] [place] [address] Performed By: #### 5 7021-8 ####VILLARREAL LABORATORYCLIA [id number] [place] [address] [place] Immature granulocytes (Bld) [#/Vol] 0.09 10*3/uL Normal <0.10 [facility] Comment on above: Order Comment: Speci men Type: BLOOD SPECIMENOrdering Facility: [facility] Address: [address] [place] [address] Performed By: #### 5 7021-8 ####VILLARREAL LABORATORYCLIA [id number] [address] [place] Immature granulocytes/100 WBC (Bld) 0.6 % Normal [facility] Comment on above: Order Comment: Speci men Type: BLOOD SPECIMENOrdering Facility: [facility] Address: [address] [place] [address] Performed By: #### 5 7021-8 ####VILLARREAL LABORATORYCLIA [id number] [place] [address] [place] Lymphocytes (Bld) [#/Vol] 1.18 10*3/uL Normal 1.00-4.00 [facility] Comment on above: Order Comment: Speci men Type: BLOOD SPECIMENOrdering Facility: [facility] Address: [address] [place] [address] Performed By: #### 5 7021-8 ####VILLARREAL LABORATORYCLIA [id number] [address] [place] Lymphocytes/100 WBC (Bld) 8.5 % Normal [facility] Comment on above: Order Comment: Speci men Type: BLOOD SPECIMENOrdering Facility: [facility] Address: [address] [place] [address] Performed By: #### 5 7021-8 ####VILLARREAL LABORATORYCLIA [id number] [address] MCH (RBC) [Entitic mass] 27.8 pg Normal 26.0-34.0 [facility] Comment on above: Order Comment: Speci men Type: BLOOD SPECIMENOrdering Facility: [facility] Address: [address] [place] [address] Performed By: #### 5 7021-8 ####VILLARREAL LABORATORYCLIA [id number] [address] [place] MCHC (RBC) [Mass/Vol] 33.0 g/dL Normal 30.5-36.0 [facility] Comment on above: Order Comment: Speci men Type: BLOOD SPECIMENOrdering Facility: [facility] Address: [address] [place] [address] Performed By: #### 5 7021-8 ####VILLARREAL LABORATORYCLIA [id number] [address] MCV (RBC) [Entitic vol] 84.1 fL Normal 80.0-100.0 [facility] Comment on above: Order Comment: Speci men Type: BLOOD SPECIMENOrdering Facility: [facility] Address: [address] [place] [address] Performed By: #### 5 7021-8 ####VILLARREAL LABORATORYCLIA [id number] [address] Monocytes (Bld) [#/Vol] 1.11 10*3/uL High <0.87 [facility] Comment on above: Order Comment: Speci men Type: BLOOD SPECIMENOrdering Facility: [facility] Address: [address] [place] [address] Performed By: #### 5 7021-8 ####VILLARREAL LABORATORYCLIA [id number] [place] [address] [place] Monocytes/100 WBC (Bld) 8.0 % Normal [facility] Comment on above: Order Comment: Speci men Type: BLOOD SPECIMENOrdering Facility: [facility] Address: [address] [place] [address] Performed By: #### 5 7021-8 ####VILLARREAL LABORATORYCLIA [id number] [place] [address] [place] Neutrophils (Bld) [#/Vol] 11.41 10*3/uL High 1.45-7.50 [facility] Comment on above: Order Comment: Speci men Type: BLOOD SPECIMENOrdering Facility: [facility] Address: [address] [place] [address] Performed By: #### 5 7021-8 ####VILLARREAL LABORATORYCLIA [id number] [place] [address] [place] Neutrophils/100 WBC (Bld) 81.7 % Normal [facility] Comment on above: Order Comment: Speci men Type: BLOOD SPECIMENOrdering Facility: [facility] Address: [address] [place] [address] Performed By: #### 5 7021-8 ####VILLARREAL LABORATORYCLIA [id number] [place] [address] [place] Nucleated RBC (Bld) [#/Vol] 10*3/uL Normal <0.01 [facility] Comment on above: Order Comment: Speci men Type: BLOOD SPECIMENOrdering Facility: [facility] Address: [address] [place] [address] Performed By: #### 5 7021-8 ####VILLARREAL LABORATORYCLIA [id number] [place] [address] [place] Nucleated RBC/100 WBC (Bld) [Ratio] 0.0 /100 WBC Normal [facility] Comment on above: Order Comment: Speci men Type: BLOOD SPECIMENOrdering Facility: [facility] Address: [address] [place] [address] Performed By: #### 5 7021-8 ####VILLARREAL LABORATORYCLIA [id number] [place] [id number] [place] Platelet mean volume (Bld) [Entitic vol] 9.4 fL Normal 9.0-12.7 [facility] Comment on above: Order Comment: Speci men Type: BLOOD SPECIMENOrdering Facility: [facility] Address: [address] [place] [address] Performed By: #### 5 7021-8 ####GREELEY LABORATORYCLIA [id number] [place] [address] [place] Platelets (Bld) [#/Vol] 358 10*3/uL Normal 150-400 [facility] Comment on above: Order Comment: Speci men Type: BLOOD SPECIMENOrdering Facility: [facility] Address: [address] [place] [address] Performed By: #### 5 7021-8 ####GREELEY LABORATORYCLIA [id number] [place] [address] [place] RBC (Bld) [#/Vol] 3.78 10*6/uL Low 3.90-5.[address] [facility] Comment on above: Order Comment: Speci men Type: BLOOD SPECIMENOrdering Facility: [facility] Address: [address] [place] [address] [place] [address] Performed By: #### 5 7021-8 ####GREELEY LABORATORYCLIA [id number] [place] [address] [place] WBC (Bld) [#/Vol] 13.95 10*3/uL High 3.70-11.00 [facility] Comment on above: Order Comment: Speci men Type: BLOOD SPECIMENOrdering Facility: [facility] Address: [address] [place] [address] Performed By: #### 5 7021-8 ####GREELEY LABORATORYCLIA [id number] [address] [place] CONSULT PROGon 11-25-2024 CONSULT PROG Normal [facility] CONSULT PROG Normal [facility] CONSULT PROG Normal [facility] Magnesium SerPl-mCncon 11-25 Magnesium [Mass/Vol] 1.1 mg/dL Low 1.7-2.3 [facility] Comment on above: Order Comment: Speci men Type: BLOOD SPECIMENOrdering Facility: [facility] Address: [facility] [place] [address] Performed By: #### 2 4321-2, 12150-0 ####VILLARREAL LABORATORYCLIA [id number] [place] [address] [place] Basic metabolic 2000 panelon 11-24-2024 Anion gap [Moles/Vol] 14 mmol/L Normal 8-15 [facility] Comment on above: Order Comment: Speci men Type: BLOOD SPECIMENOrdering Facility: [facility] Address: [address] [place] [address] Performed By: #### 2 4321-2 ####VILLARREAL LABORATORYCLIA [id number] [place] [address] [place] Calcium [Mass/Vol] 8.8 mg/dL Normal 8.5-10.2 [facility] Comment on above: Order Comment: Speci men Type: BLOOD SPECIMENOrdering Facility: [facility] Address: [address] [place] [address] Performed By: #### 2 4321-2 ####VILLARREAL LABORATORYCLIA [id number] [place] [address] [place] Chloride [Moles/Vol] 95 mmol/L Low 98-107 [facility] Comment on above: Order Comment: Speci men Type: BLOOD SPECIMENOrdering Facility: [facility] Address: [address] [place] [address] Performed By: #### 2 4321-2 ####VILLARREAL LABORATORYCLIA [id number] [place] [id number] [place] CO2 [Moles/Vol] 24 mmol/L Normal 22-30 [facility] Comment on above: Order Comment: Speci men Type: BLOOD SPECIMENOrdering Facility: [facility] Address: [address] [place] [address] Performed By: #### 2 4321-2 ####VILLARREAL LABORATORYCLIA [id number] [place] [address] [place] Creatinine [Mass/Vol] 0.92 mg/dL Normal 0.58-0.96 [facility] Comment on above: Order Comment: Fan meade Type: BLOOD SPECIMENOrdering Facility: [facility] Address: [address] [place] [address] Performed By: #### 2 4321-2 ####[facility] LABORATORYCLIA [id number] [place] [id number] [facility] Creatinine and Glomerular filtration rate.predicted panel (S/P/Bld) 60 mL/min/1.73m??? Normal >=60 [facility] Comment on above: Order Comment: Fan meade Type: BLOOD SPECIMENOrdering Facility: [facility] Address: [address] [place] [address] Result Comment: Hilda mated Glomerular Filtration Rate [...] actual GFR. Performed By: #### 2 4321-2 ####[facility] LABORATORYCLIA [id number] [address] STATES OF [facility] Glucose [Mass/Vol] 202 mg/dL High 74-99 [facility] Comment on above: Order Comment: Fan meade Type: BLOOD SPECIMENOrdering Facility: [facility] Address: [address] [place] [address] Result Comment: The [place] Diabetes Association (ADA) provides guidance for cutoff [...] Standards of Medical Care in Diabetes 2016, [place] [employer]. Diabetes Care. 2016.39(Suppl 1). Performed By: #### 2 4321-2 ####VILLARRE[facility] LABORATORYCLIA [id number] [address] STATES [facility] Potassium [Moles/Vol] 4.0 mmol/L Normal 3.7-5.1 [facility] Comment on above: Order Comment: Fan meade Type: BLOOD SPECIMENOrdering Facility: [facility] Address: [address] [place] [address] Performed By: #### 2 4321-2 ####VILLARREAL LABORATORYCLIA [id number] [address] [place] [facility] Sodium [Moles/Vol] 133 mmol/L Low 136-144 [facility] Comment on above: Order Comment: Fan meade Type: BLOOD SPECIMENOrdering Facility: [facility] Address: [address] [place] [address] Performed By: #### 2 4321-2 ####VILLARREAL LABORATORYCLIA [id number] [address] [place] [facility] Urea nitrogen [Mass/Vol] 39 mg/dL High 7-21 [facility] Comment on above: Order Comment: Fan meade Type: BLOOD SPECIMENOrdering Facility: [facility] Address: [address] [place] [address] Performed By: #### 2 4321-2 ####VILLARREAL LABORATORYCLIA [id number] [address] CBC panel Auto (Bld)on 11-24 Erythrocyte distribution width (RBC) [Ratio] 15.2 % High 11.5-15.0 [facility] Comment on above: Order Comment: Fan meade Type: BLOOD SPECIMENOrdering Facility: [facility] Address: [address] [place] [address] Performed By: #### 5 8410-2 ####VILLARREAL LABORATORYCLIA [id number] [address] Hematocrit (Bld) [Volume fraction] 29.3 % Low 36.0-46.0 [facility] Comment on above: Order Comment: Speci men Type: BLOOD SPECIMENOrdering Facility: [facility] Address: [address] [place] [address] Performed By: #### 5 8410-2 ####VILLARREAL LABORATORYCLIA [id number] [address] Hemoglobin (Bld) [Mass/Vol] 9.7 g/dL Low 11.5-15.5 [facility] Comment on above: Order Comment: Speci men Type: BLOOD SPECIMENOrdering Facility: [facility] Address: [address] [place] [address] Performed By: #### 5 8410-2 ####VILLARREAL LABORATORYCLIA [id number] [address] MCH (RBC) [Entitic mass] 27.8 pg Normal 26.0-34.0 [facility] Comment on above: Order Comment: Speci men Type: BLOOD SPECIMENOrdering Facility: [facility] Address: [address] [place] [address] Performed By: #### 5 8410-2 ####VILLARREAL LABORATORYCLIA [id number] [address] MCHC (RBC) [Mass/Vol] 33.1 g/dL Normal 30.5-36.0 [facility] Comment on above: Order Comment: Speci men Type: BLOOD SPECIMENOrdering Facility: [facility] Address: [address] [place] [address] Performed By: #### 5 8410-2 ####VILLARREAL LABORATORYCLIA [id number] [address] MCV (RBC) [Entitic vol] 84.0 fL Normal 80.0-100.0 [facility] Comment on above: Order Comment: Speci men Type: BLOOD SPECIMENOrdering Facility: [facility] Address: [address] [place] [address] Performed By: #### 5 8410-2 ####VILLARREAL LABORATORYCLIA [id number] [address] Nucleated RBC (Bld) [#/Vol] 10*3/uL Normal <0.01 [facility] Comment on above: Order Comment: Speci men Type: BLOOD SPECIMENOrdering Facility: [facility] Address: [facility] [place] [address] Performed By: #### 5 8410-2 ####VILLARREAL LABORATORYCLIA [id number] [address] [place] Platelet mean volume (Bld) [Entitic vol] 9.5 fL Normal 9.0-12.7 [facility] Comment on above: Order Comment: Speci men Type: BLOOD SPECIMENOrdering Facility: [facility] Address: [address] [place] [address] Performed By: #### 5 8410-2 ####VILLARREAL LABORATORYCLIA [id number] [address] [place] Platelets (Bld) [#/Vol] 338 10*3/uL Normal 150-400 [facility] Comment on above: Order Comment: Speci men Type: BLOOD SPECIMENOrdering Facility: [facility] Address: [address] [place] [address] Performed By: #### 5 8410-2 ####VILLARREAL LABORATORYCLIA [id number] [place] [address] [place] RBC (Bld) [#/Vol] 3.49 10*6/uL Low 3.90-5.[address] [facility] Comment on above: Order Comment: Speci men Type: BLOOD SPECIMENOrdering Facility: [facility] Address: [address] [place] [address] Performed By: #### 5 8410-2 ####VILLARREAL LABORATORYCLIA [id number] [address] [place] WBC (Bld) [#/Vol] 12.48 10*3/uL High 3.70-11.00 [facility] Comment on above: Order Comment: Speci men Type: BLOOD SPECIMENOrdering Facility: [facility] Address: [address] [place] [address] Performed By: #### 5 8410-2 ####VILLARREAL LABORATORYCLIA [id number] [place] [address] [place] CONSULTon 11-24-2024 CONSULT Normal [facility] CONSULT PROGon 11-24-2024 CONSULT PROG Normal [facility] CONSULT PROG Normal [facility] Vancomycin Blaine SerPl-mCncon 11-24-2024 Vancomycin random [Mass/Vol] 11.6 ug/mL Normal 10.0-20.0 [facility] Comment on above: Order Comment: Speci men Type: BLOOD SPECIMENOrdering Facility: [facility] Address: [address] [place] [address] Result Comment: Refe rence ranges and high/low indicator flags are provided as general guidelines only. The treating physician must determine appropriate target levels/dosing based on the specific clinical situation. Performed By: #### 4 091-5 ####VILLARREAL LABORATORYCLIA [id number] [place] [address] [place] Basic metabolic 2000 panelon 11-23-2024 Anion gap [Moles/Vol] 14 mmol/L Normal 8-15 [facility] Comment on above: Order Comment: Speci men Type: BLOOD SPECIMENOrdering Facility: [facility] Address: [address] [place] [address] Performed By: #### 2 4321-2 ####VILLARRE[facility] LABORATORYCLIA [id number] [place] [address] [place] Calcium [Mass/Vol] 8.7 mg/dL Normal 8.5-10.2 [facility] Comment on above: Order Comment: Speci men Type: BLOOD SPECIMENOrdering Facility: [facility] Address: [address] [place] [address] Performed By: #### 2 4321-2 ####VILLARREAL LABORATORYCLIA [id number] [place] [address] [place] Chloride [Moles/Vol] 98 mmol/L Normal 98-107 [facility] Comment on above: Order Comment: Speci men Type: BLOOD SPECIMENOrdering Facility: [facility] Address: [address] [place] [address] Performed By: #### 2 4321-2 ####VILLARREAL LABORATORYCLIA [id number] [address] CO2 [Moles/Vol] 24 mmol/L Normal 22-30 [facility] Comment on above: Order Comment: Fan meade Type: BLOOD SPECIMENOrdering Facility: [facility] Address: [address] [place] [address] Performed By: #### 2 4321-2 ####VILLARREAL LABORATORYCLIA [id number] [address] [place] [facility] Creatinine [Mass/Vol] 0.96 mg/dL Normal 0.58-0.96 [facility] Comment on above: Order Comment: Fan halina Type: BLOOD SPECIMENOrdering Facility: [facility] Address: [address] [place] [address] Performed By: #### 2 4321-2 ####VILLARREAL LABORATORYCLIA [id number] [address] Creatinine and Glomerular filtration rate.predicted panel (S/P/Bld) 57 mL/min/1.73m??? Low >=60 [facility] Comment on above: Order Comment: Fan meade Type: BLOOD SPECIMENOrdering Facility: [facility] Address: [address] [place] [address] Result Comment: Hilda mated Glomerular Filtration Rate [...] Performed By: #### 2 4321-2 ####VILLARREAL LABORATORYCLIA [id number] [address] Glucose [Mass/Vol] 193 mg/dL High 74-99 [facility] Comment on above: Order Comment: Kateleroy meade Type: BLOOD SPECIMENOrdering Facility: [facility] Address: [address] [place] [address] Result Comment: The [place] Diabetes Association (ADA) provides guidance for cutoff [...] Standards of Medical Care in Diabetes 2016, [place] [employer]. Diabetes Care. 2016.39(Suppl 1). Performed By: #### 2 4321-2 ####VILLARREAL LABORATORYCLIA [id number] [address] STATES OF [facility] Potassium [Moles/Vol] 4.1 mmol/L Normal 3.7-5.1 [facility] Comment on above: Order Comment: Fan meade Type: BLOOD SPECIMENOrdering Facility: [facility] Address: [address] [place] [address] Performed By: #### 2 4321-2 ####VILLARREAL LABORATORYCLIA [id number] [address] Sodium [Moles/Vol] 136 mmol/L Normal 136-144 [facility] Comment on above: Order Comment: Fan meade Type: BLOOD SPECIMENOrdering Facility: [facility] Address: [address] [place] [address] Performed By: #### 2 4321-2 ####VILLARREAL LABORATORYCLIA [id number] [address] [place] [facility] Urea nitrogen [Mass/Vol] 31 mg/dL High 7-21 [facility] Comment on above: Order Comment: Fan meade Type: BLOOD SPECIMENOrdering Facility: [facility] Address: [address] [place] [address] Performed By: #### 2 4321-2 ####VILLARREAL LABORATORYCLIA [id number] [place] [id number] [place] [facility] CASE MANAGEMon 11-23-2024 CASE MANAGEM Normal [facility] CBC panel Auto (Bld)on 11-23 Erythrocyte distribution width (RBC) [Ratio] 15.1 % High 11.5-15.0 [facility] Comment on above: Order Comment: Speci men Type: BLOOD SPECIMENOrdering Facility: [facility] Address: [address] [place] [address] Performed By: #### 5 8410-2 ####VILLARREAL LABORATORYCLIA [id number] [address] [place] Hematocrit (Bld) [Volume fraction] 30.5 % Low 36.0-46.0 [facility] Comment on above: Order Comment: Speci men Type: BLOOD SPECIMENOrdering Facility: [facility] Address: [address] [place] [address] Performed By: #### 5 8410-2 ####VILLARREAL LABORATORYCLIA [id number] [address] [place] Hemoglobin (Bld) [Mass/Vol] 10.2 g/dL Low 11.5-15.5 [facility] Comment on above: Order Comment: Speci men Type: BLOOD SPECIMENOrdering Facility: [facility] Address: [address] [place] [address] Performed By: #### 5 8410-2 ####VILLARREAL LABORATORYCLIA [id number] [address] MCH (RBC) [Entitic mass] 28.2 pg Normal 26.0-34.0 [facility] Comment on above: Order Comment: Speci men Type: BLOOD SPECIMENOrdering Facility: [facility] Address: [address] [place] [address] Performed By: #### 5 8410-2 ####VILLARREAL LABORATORYCLIA [id number] [address] [place] [facility] MCHC (RBC) [Mass/Vol] 33.4 g/dL Normal 30.5-36.0 [facility] Comment on above: Order Comment: Speci men Type: BLOOD SPECIMENOrdering Facility: [facility] Address: [address] [place] [address] Performed By: #### 5 8410-2 ####VILLARREAL LABORATORYCLIA [id number] [address] MCV (RBC) [Entitic vol] 84.3 fL Normal 80.0-100.0 [facility] Comment on above: Order Comment: Speci men Type: BLOOD SPECIMENOrdering Facility: [facility] Address: [address] [facility] [place] [address] Performed By: #### 5 8410-2 ####VILLARREAL LABORATORYCLIA [id number] [place] [address] [place] Nucleated RBC (Bld) [#/Vol] 10*3/uL Normal <0.01 [facility] Comment on above: Order Comment: Speci men Type: BLOOD SPECIMENOrdering Facility: [facility] Address: [address] [place] [address] Performed By: #### 5 8410-2 ####VILLARREAL LABORATORYCLIA [id number] [place] [address] [place] Platelet mean volume (Bld) [Entitic vol] 9.5 fL Normal 9.0-12.7 [facility] Comment on above: Order Comment: Speci men Type: BLOOD SPECIMENOrdering Facility: [facility] Address: [address] [place] [address] Performed By: #### 5 8410-2 ####VILLARREAL LABORATORYCLIA [id number] [place] [address] [place] Platelets (Bld) [#/Vol] 338 10*3/uL Normal 150-400 [facility] Comment on above: Order Comment: Speci men Type: BLOOD SPECIMENOrdering Facility: [facility] Address: [address] [facility] [place] [address] Performed By: #### 5 8410-2 ####VILLARREAL LABORATORYCLIA [id number] [place] [address] [place] RBC (Bld) [#/Vol] 3.62 10*6/uL Low 3.90-5.[address] [facility] Comment on above: Order Comment: Speci men Type: BLOOD SPECIMENOrdering Facility: [facility] Address: [address] [place] [address] Performed By: #### 5 8410-2 ####VILLARREAL LABORATORYCLIA [id number] [place] [address] [place] WBC (Bld) [#/Vol] 15.48 10*3/uL High 3.70-11.00 [facility] Comment on above: Order Comment: Speci men Type: BLOOD SPECIMENOrdering Facility: [facility] Address: [address] [place] [address] Performed By: #### 5 8410-2 ####[facility] LABORATORYCLIA [id number] [place] [address] [place] CONSULT PROGon 11-23-2024 CONSULT PROG Normal [facility] THERAPY NTon 11-23-2024 THERAPY NT Normal [facility] THERAPY NT Normal [facility] Bacteria Spec Anaerobe Culto n 11-22-2024 Bacteria identified Anaer cx Nom (Unsp spec) Negative [facility] Comment on above: Performed By: #### 6 462-6, 635-3 ####[facility] LABCL[facility] [id number] [place] [address] [place] Bacteria Wnd Culton 11-22-19 25 Bacteria identified Cx Nom (Wound) ORGANISM ID: 1 Many Staphylococcus aureus Refer to specimen collected on 11/21/2024 at 10:34 PM [[id number]] GRAM STAIN: Rare Gram positive cocci Rare Polymorphonuclear leukocytes Abnormal [facility] Comment on above: Performed By: #### 6 462-6, 635-3 ####[facility] LABCL[facility] [id number] [place] [address] [place] Basic metabolic 2000 panelon 11-22-2024 Anion gap [Moles/Vol] 11 mmol/L Normal 8-15 [facility] Comment on above: Order Comment: Speci men Type: BLOOD SPECIMENOrdering Facility: [facility] Address: [address] [place] [address] Performed By: #### 2 4321-2 ####G[facility] LABORATORYCLIA [id number] [place] [id number] [place] Calcium [Mass/Vol] 8.2 mg/dL Low 8.5-10.2 [facility] Comment on above: Order Comment: Speci men Type: BLOOD SPECIMENOrdering Facility: [facility] Address: [address] [place] [address] Performed By: #### 2 4321-2 ####VILLARREAL LABORATORYCLIA [id number] [address] Chloride [Moles/Vol] 97 mmol/L Low 98-107 [facility] Comment on above: Order Comment: Speci men Type: BLOOD SPECIMENOrdering Facility: [facility] Address: [address] [place] [address] Performed By: #### 2 4321-2 ####VILLARREAL LABORATORYCLIA [id number] [address] [place] CO2 [Moles/Vol] 25 mmol/L Normal 22-30 [facility] Comment on above: Order Comment: Speci men Type: BLOOD SPECIMENOrdering Facility: [facility] Address: [address] [place] [address] Performed By: #### 2 4321-2 ####VILLARRE[facility] LABORATORYCLIA [id number] [address] Creatinine [Mass/Vol] 0.89 mg/dL Normal 0.58-0.96 [facility] Comment on above: Order Comment: Speci men Type: BLOOD SPECIMENOrdering Facility: [facility] Address: [address] [place] [address] Performed By: #### 2 4321-2 ####[facility] LABORATORYCLIA [id number] [address] Creatinine and Glomerular filtration rate.predicted panel (S/P/Bld) 62 mL/min/1.73m??? Normal >=60 [facility] Comment on above: Order Comment: Speci men Type: BLOOD SPECIMENOrdering Facility: [facility] Address: [address] [place] [address] Result Comment: Hilda mated Glomerular Filtration Rate [...] actual GFR. Performed By: #### 2 4321-2 ####[facility] LABORATORYCLIA [id number] [place] [address] [place] Glucose [Mass/Vol] 291 mg/dL High 74-99 [facility] Comment on above: Order Comment: Fan meade Type: BLOOD SPECIMENOrdering Facility: [facility] Address: [address] [place] [address] Result Comment: The [place] Diabetes [employer] (ADA) provides guidance for cutoff [...] Standards of Medical Care in Diabetes 2016, [place] [employer]. Diabetes Care. 2016.39(Suppl 1). Performed By: #### 2 4321-2 ####[facility] LABORATORYCLIA [id number] [place] [address] [place] Potassium [Moles/Vol] 4.1 mmol/L Normal 3.7-5.1 [facility] Comment on above: Order Comment: Fan meade Type: BLOOD SPECIMENOrdering Facility: [facility] Address: [address] [place] [address] Performed By: #### 2 4321-2 ####[facility] LABORATORYCLIA [id number] [place] [address] [place] Sodium [Moles/Vol] 133 mmol/L Low 136-144 [facility] Comment on above: Order Comment: Fan meade Type: BLOOD SPECIMENOrdering Facility: [facility] Address: [address] [place] [id number] Performed By: #### 2 4321-2 ####VILL[facility]RE[facility] LABORATORYCLIA [id number] [place] [address] [place] Urea nitrogen [Mass/Vol] 30 mg/dL High 7-21 [facility] Comment on above: Order Comment: Speci men Type: BLOOD SPECIMENOrdering Facility: [facility] Address: [address] [place] [address] Performed By: #### 2 4321-2 ####[facility] LABORATORYCLIA [id number] [address] [place] CASE MGT INIT ASSESon 2024 [facility] CBC panel Auto (Bld)on 11-22 Erythrocyte distribution width (RBC) [Ratio] 15.2 % High 11.5-15.0 [facility] Comment on above: Order Comment: Speci men Type: BLOOD SPECIMENOrdering Facility: [facility] Address: [address] [place] [address] Performed By: #### 5 8410-2 ####VILLARREAL LABORATORYCLIA [id number] [address] [place] Hematocrit (Bld) [Volume fraction] 28.5 % Low 36.0-46.0 [facility] Comment on above: Order Comment: Speci men Type: BLOOD SPECIMENOrdering Facility: [facility] Address: [address] [place] [address] Performed By: #### 5 8410-2 ####VILLARRE[facility] LABORATORYCLIA [id number] [place] [address] [place] Hemoglobin (Bld) [Mass/Vol] 9.3 g/dL Low 11.5-15.5 [facility] Comment on above: Order Comment: Speci men Type: BLOOD SPECIMENOrdering Facility: [facility] Address: [address] [place] [address] Performed By: #### 5 8410-2 ####VILLARRE[facility] LABORATORYCLIA [id number] [address] [place] MCH (RBC) [Entitic mass] 27.8 pg Normal 26.0-34.0 [facility] Comment on above: Order Comment: Speci men Type: BLOOD SPECIMENOrdering Facility: [facility] Address: [address] [place] [address] Performed By: #### 5 8410-2 ####VILL[facility]RE[facility] LABORATORYCLIA [id number] [address] [place] MCHC (RBC) [Mass/Vol] 32.6 g/dL Normal 30.5-36.0 [facility] Comment on above: Order Comment: Speci men Type: BLOOD SPECIMENOrdering Facility: [facility] Address: [address] [place] [address] Performed By: #### 5 8410-2 ####VILLARREAL LABORATORYCLIA [id number] [address] [place] MCV (RBC) [Entitic vol] 85.3 fL Normal 80.0-100.0 [facility] Comment on above: Order Comment: Speci men Type: BLOOD SPECIMENOrdering Facility: [facility] Address: [address] [place] [address] Performed By: #### 5 8410-2 ####VILLARREAL LABORATORYCLIA [id number] [address] [place] Nucleated RBC (Bld) [#/Vol] 10*3/uL Normal <0.01 [facility] Comment on above: Order Comment: Speci men Type: BLOOD SPECIMENOrdering Facility: [facility] Address: [address] [place] [address] Performed By: #### 5 8410-2 ####VILLARRE[facility] LABORATORYCLIA [id number] [address] [place] Platelet mean volume (Bld) [Entitic vol] 9.5 fL Normal 9.0-12.7 [facility] Comment on above: Order Comment: Speci men Type: BLOOD SPECIMENOrdering Facility: [facility] Address: [address] [place] [address] Performed By: #### 5 8410-2 ####VILLARREAL LABORATORYCLIA [id number] [address] [place] Platelets (Bld) [#/Vol] 294 10*3/uL Normal 150-400 [facility] Comment on above: Order Comment: Speci men Type: BLOOD SPECIMENOrdering Facility: [facility] Address: [address] [place] [address] Performed By: #### 5 8410-2 ####[facility] LABORATORYCLIA [id number] [address] OF [facility] RBC (Bld) [#/Vol] 3.34 10*6/uL Low 3.90-5.[address] [facility] Comment on above: Order Comment: Speci men Type: BLOOD SPECIMENOrdering Facility: [facility] Address: [address] [place] [address] Performed By: #### 5 8410-2 ####GREELEY LABORATORYCLIA [id number] [address] [place] WBC (Bld) [#/Vol] 15.66 10*3/uL High 3.70-11.00 [facility] Comment on above: Order Comment: Speci men Type: BLOOD SPECIMENOrdering Facility: [facility] Address: [address] [place] [address] Performed By: #### 5 8410-2 ####[facility]ORATORYCLIA [id number] [address] [place] CONSULTon 11-22-2024 CONSULT [facility] CONSULT PROGon 11-22-2024 CONSULT PROG [facility] ESR Westergren method (Bld) [Velocity]on 11-22-2024 ESR (Bld) [Velocity] 40 mm/h High 0-20 [facility] Comment on above: Order Comment: Speci men Type: BLOOD SPECIMENOrdering Facility: [facility] Address: [address] [place] [address] Performed By: #### 4 537-7 ####[facility] [id number] [address] [place] HISTORY PHYSICALon HISTORY PHYSICAL Normal [facility] NUTRITIONon 11-22-2024 NUTRITION Normal [facility] SEPSIS LACTATE W/ REFLEX (SE COND)on 11-22-2024 Lactate [Moles/Vol] 1.9 mmol/L Normal 0.5-2.[address] [facility] Comment on above: Order Comment: Speci men Type: BLOOD SPECIMENOrdering Facility: [facility] Address: [address] [place] [address] Performed By: #### S LACT2 ####[facility] LABORATORYCLIA [id number] [place] [address] [place] US ANKLE BRACHIAL INDICESon 11-22-2024 US ANKLE BRACHIAL INDICES Normal [facility] Bacteria Bld Culton 11-21-19 25 Bacteria identified Cx Nom (Bld) CULTURE, BLOOD: No growth 5 days Normal [facility] Comment on above: Performed By: #### 6 00-7 ####[facility] [id number] [place] [address] [place] Bacteria identified Cx Nom (Bld) ORGANISM ID: 1 Gram positive diphtheroid-like bacilli Probable contaminant. Susceptibility testing will not be performed. Call lab within 72 hours to initiate workup if clinically indicated. GRAM STAIN: Gram positive bacilli Abnormal [facility] Comment on above: Performed By: #### 6 00-7 ####[facility] [id number] [place] [address] [place] Bacteria Wnd Culton 11-21-19 25 Bacteria identified Cx Nom (Wound) Abnormal [facility] Comment on above: Performed By: #### 6 462-6 ####[facility] [id number] [place] [address] [place] CBC W Auto Differential pane l (Bld)on 11-21-2024 Basophils (Bld) [#/Vol] 0.04 10*3/uL Normal <0.11 [facility] Comment on above: Order Comment: Speci men Type: BLOOD SPECIMENOrdering Facility: [facility] Address: [address] [place] [address] Performed By: #### 5 5454-3 ####[facility] [id number] [place] [address] [place]#### 34769-2 ####[facility]ORATORYCLIA [id number] [place] [address] [place] Basophils/100 WBC (Bld) 0.2 % Normal [facility] Comment on above: Order Comment: Speci men Type: BLOOD SPECIMENOrdering Facility: [facility] Address: [address] [place] [address] Performed By: #### 5 5454-3 ####[facility] [id number] [place] [address] [place]#### 66611-3 ####[facility] LABORATORYCLIA [id number] [place] [address] [place] Differential cell count method Nom (Bld) Auto Normal [facility] Comment on above: Order Comment: Speci men Type: BLOOD SPECIMENOrdering Facility: [facility] Address: [address] [place] [address] Performed By: #### 5 5454-3 ####[facility] [id number] [place] [address] [place]#### 39702-2 ####[facility] LABORATORYCLIA [id number] [place] [address] [place] Eosinophils (Bld) [#/Vol] 10*3/uL Normal <0.46 [facility] Comment on above: Order Comment: Speci men Type: BLOOD SPECIMENOrdering Facility: [facility] Address: [address] [place] [address] Performed By: #### 5 5454-3 ####[facility] [id number] [place] [address] [place]#### 08459-4 ####[facility] LABORATORYCLIA [id number] [place] [address] [place] Eosinophils/100 WBC (Bld) 0.0 % Normal [facility] Comment on above: Order Comment: Speci men Type: BLOOD SPECIMENOrdering Facility: [facility] Address: [address] [place] [address] Performed By: #### 5 5454-3 ####[facility] [id number] [place] [address] [place]#### 72770-1 ####[facility] LABORATORYCLIA [id number] [place] [address] [place] Erythrocyte distribution width (RBC) [Ratio] 15.0 % Normal 11.5-15.0 [facility] Comment on above: Order Comment: Speci men Type: BLOOD SPECIMENOrdering Facility: [facility] Address: [address] [place] [address] Performed By: #### 5 5454-3 ####[facility] [id number] [place] [address] [place]#### 39185-2 ####[facility] LABORATORYCLIA [id number] [place] [address] [place] Hematocrit (Bld) [Volume fraction] 32.3 % Low 36.0-46.0 [facility] Comment on above: Order Comment: Speci men Type: BLOOD SPECIMENOrdering Facility: [facility] Address: [address] [place] [address] Performed By: #### 5 5454-3 ####[facility] [id number] [address] [place]#### 83294-0 ####[facility] LABORATORYCLIA [id number] [place] [address] [place] Hemoglobin (Bld) [Mass/Vol] 10.9 g/dL Low 11.5-15.5 [facility] Comment on above: Order Comment: Speci men Type: BLOOD SPECIMENOrdering Facility: [facility] Address: [address] [place] [address] Performed By: #### 5 5454-3 ####[facility]CLIA [id number] [address] [place]#### 46223-1 ####[facility] LABORATORYCLIA [id number] [address] Immature granulocytes (Bld) [#/Vol] 0.13 10*3/uL High <0.10 [facility] Comment on above: Order Comment: Speci men Type: BLOOD SPECIMENOrdering Facility: [facility] Address: [address] [place] [address] Performed By: #### 5 5454-3 ####[facility]CL[facility] [id number] [address] [place]#### 56450-4 ####[facility] LABORATORYCLIA [id number] [address] Immature granulocytes/100 WBC (Bld) 0.7 % Normal [facility] Comment on above: Order Comment: Speci men Type: BLOOD SPECIMENOrdering Facility: [facility] Address: [address] [place] [address] Performed By: #### 5 5454-3 ####[facility] LABCLIA [id number] [address] [place]#### 92838-8 ####[facility] LABORATORYCLIA [id number] [address] [place] Lymphocytes (Bld) [#/Vol] 0.76 10*3/uL Low 1.00-4.00 [facility] Comment on above: Order Comment: Speci men Type: BLOOD SPECIMENOrdering Facility: [facility] Address: [address] [place] [address] Performed By: #### 5 5454-3 ####[facility] LABCL[facility] [id number] [place] [address] [place]#### 11744-0 ####[facility] LABORATORYCLIA [id number] [address] [place] Lymphocytes/100 WBC (Bld) 3.8 % Normal [facility] Comment on above: Order Comment: Speci men Type: BLOOD SPECIMENOrdering Facility: [facility] Address: [address] [place] [address] Performed By: #### 5 5454-3 ####[facility] LABCL[facility] [id number] [address] [place]#### 24719-1 ####[facility]ORATORYCLIA [id number] [address] MCH (RBC) [Entitic mass] 28.5 pg Normal 26.0-34.0 [facility] Comment on above: Order Comment: Speci men Type: BLOOD SPECIMENOrdering Facility: [facility] Address: [address] [place] [address] Performed By: #### 5 5454-3 ####[facility] [id number] [address] [place]#### 27258-2 ####[facility]ORATORYCLIA [id number] [address] MCHC (RBC) [Mass/Vol] 33.7 g/dL Normal 30.5-36.0 [facility] Comment on above: Order Comment: Speci men Type: BLOOD SPECIMENOrdering Facility: [facility] Address: [address] [place] [address] Performed By: #### 5 5454-3 ####[facility] [id number] [address] [place]#### 30483-3 ####[facility] LABORATORYCLIA [id number] [address] MCV (RBC) [Entitic vol] 84.3 fL Normal 80.0-100.0 [facility] Comment on above: Order Comment: Speci men Type: BLOOD SPECIMENOrdering Facility: [facility] Address: [address] [place] [address] Performed By: #### 5 5454-3 ####[facility]CLIA [id number] [place] [address] [place]#### 19945-0 ####[facility] LABORATORYCLIA [id number] [place] [address] [place] Monocytes (Bld) [#/Vol] 0.94 10*3/uL High <0.87 [facility] Comment on above: Order Comment: Speci men Type: BLOOD SPECIMENOrdering Facility: [facility] Address: [address] [place] [address] Performed By: #### 5 5454-3 ####[facility]CL[facility] [id number] [place] [address] [place]#### 31361-8 ####[facility] LABORATORYCLIA [id number] [place] [address] [place] Monocytes/100 WBC (Bld) 4.7 % Normal [facility] Comment on above: Order Comment: Speci men Type: BLOOD SPECIMENOrdering Facility: [facility] Address: [address] [place] [address] Performed By: #### 5 5454-3 ####[facility] [id number] [place] [address] [place]#### 29729-4 ####[facility] LABORATORYCLIA [id number] [place] [address] [place] Neutrophils (Bld) [#/Vol] 17.99 10*3/uL High 1.45-7.50 [facility] Comment on above: Order Comment: Speci men Type: BLOOD SPECIMENOrdering Facility: [facility] Address: [facility] [place] [address] Performed By: #### 5 5454-3 ####[facility] LABCLIA [id number] [place] [address] [place]#### 89016-5 ####[facility] LABORATORYCLIA [id number] [address] Neutrophils/100 WBC (Bld) 90.6 % Normal [facility] Comment on above: Order Comment: Speci men Type: BLOOD SPECIMENOrdering Facility: [facility] Address: [address] [place] [address] Performed By: #### 5 5454-3 ####[facility] LAB[facility] [id number] [place] [address] [place]#### 76200-5 ####[facility] LABORATORYCLIA [id number] [address] [place] Nucleated RBC (Bld) [#/Vol] 10*3/uL Normal <0.01 [facility] Comment on above: Order Comment: Speci men Type: BLOOD SPECIMENOrdering Facility: [facility] Address: [address] [place] [address] Performed By: #### 5 5454-3 ####[facility] [id number] [place] [address] [place]#### 93166-7 ####[facility] LABORATORYCLIA [id number] [address] Nucleated RBC/100 WBC (Bld) [Ratio] 0.0 /100 WBC Normal [facility] Comment on above: Order Comment: Speci men Type: BLOOD SPECIMENOrdering Facility: [facility] Address: [address] [place] [address] Performed By: #### 5 5454-3 ####[facility] LABCLIA [id number] [place] [address] [place]#### 23683-0 ####[facility] LABORATORYCLIA [id number] [address] [place] Platelet mean volume (Bld) [Entitic vol] 9.0 fL Normal 9.0-12.7 [facility] Comment on above: Order Comment: Speci men Type: BLOOD SPECIMENOrdering Facility: [facility] Address: [address] [place] [address] Performed By: #### 5 5454-3 ####[facility] LABCLIA [id number] [place] [address] [place]#### 05947-6 ####[facility]ORATORYCLIA [id number] [place] [address] [place] Platelets (Bld) [#/Vol] 326 10*3/uL Normal 150-400 [facility] Comment on above: Order Comment: Speci men Type: BLOOD SPECIMENOrdering Facility: [facility] Address: [address] [place] [address] Performed By: #### 5 5454-3 ####[facility] LAB[facility] [id number] [place] [address] [place]#### 38786-7 ####[facility]ORATORYCLIA [id number] [place] [address] [place] RBC (Bld) [#/Vol] 3.83 10*6/uL Low 3.90-5.[address] [facility] Comment on above: Order Comment: Speci men Type: BLOOD SPECIMENOrdering Facility: [facility] Address: [address] [place] [address] Performed By: #### 5 5454-3 ####[facility]CLIA [id number] [place] [address] [place]#### 45323-9 ####[facility] LABORATORYCLIA [id number] [place] [address] [place] WBC (Bld) [#/Vol] 19.86 10*3/uL High 3.70-11.00 [facility] Comment on above: Order Comment: Speci men Type: BLOOD SPECIMENOrdering Facility: [facility] Address: [address] [place] [address] Performed By: #### 5 5454-3 ####[facility]CL[facility] [id number] [address] [place]#### 27443-4 ####[facility] LABORATORYCLIA [id number] [address] CRP SerPl-mCncon 11-21-2024 CRP [Mass/Vol] 3.8 mg/dL High <0.9 [facility] Comment on above: Order Comment: Speci men Type: BLOOD SPECIMENOrdering Facility: [facility] Address: [address] [place] [address] Performed By: #### 2 4323-8, 87020-9, 1988-03, ####[facility] LABORATORYCLIA [id number] [address] Comprehensive metabolic 2000 panelon 11-21-2024 Albumin [Mass/Vol] 3.7 g/dL Low 3.9-4.9 [facility] Comment on above: Order Comment: Speci men Type: BLOOD SPECIMENOrdering Facility: [facility] Address: [address] [place] [address] Performed By: #### 2 4323-8, 57036-4, 1988-03, ####[facility] LABORATORYCLIA [id number] [address] [place] ALP [Catalytic activity/Vol] 90 U/L Normal 34-123 [facility] Comment on above: Order Comment: Speci men Type: BLOOD SPECIMENOrdering Facility: [facility] Address: [address] [place] [address] Performed By: #### 2 4323-8, 35122-8, 1988-03, ####[facility] LABORATORYCLIA [id number] [place] [address] [facility] ALT [Catalytic activity/Vol] 10 U/L Normal 7-38 [facility] Comment on above: Order Comment: Speci men Type: BLOOD SPECIMENOrdering Facility: [facility] Address: [address] [place] [address] Performed By: #### 2 4323-8, 51507-1, 1988-03, ####[facility] LABORATORYCLIA [id number] [place] [address] [place] Anion gap [Moles/Vol] 13 mmol/L Normal 8-15 [facility] Comment on above: Order Comment: Speci men Type: BLOOD SPECIMENOrdering Facility: [facility] Address: [address] [place] [address] Performed By: #### 2 4323-8, 47806-2, 1988-03, ####[facility] LABORATORYCLIA [id number] [place] [address] [place] AST [Catalytic activity/Vol] 14 U/L Normal 13-35 [facility] Comment on above: Order Comment: Speci men Type: BLOOD SPECIMENOrdering Facility: [facility] Address: [address] [place] [address] Performed By: #### 2 4323-8, 25417-1, 1988-03, ####[facility] LABORATORYCLIA [id number] [place] [address] [place] Bilirubin [Mass/Vol] 0.2 mg/dL Normal 0.2-1.3 [facility] Comment on above: Order Comment: Speci men Type: BLOOD SPECIMENOrdering Facility: [facility] Address: [address] [place] [address] Performed By: #### 2 4323-8, 69075-8, 1988-03, ####[facility]ORATORYCLIA [id number] [place] [address] [place] Calcium [Mass/Vol] 9.3 mg/dL Normal 8.5-10.2 [facility] Comment on above: Order Comment: Speci men Type: BLOOD SPECIMENOrdering Facility: [facility] Address: [address] [place] [address] Performed By: #### 2 4323-8, 24689-0, 1988-03, ####[facility] LABORATORYCLIA [id number] [place] [address] [place] Chloride [Moles/Vol] 96 mmol/L Low 98-107 [facility] Comment on above: Order Comment: Speci men Type: BLOOD SPECIMENOrdering Facility: [facility] Address: [address] [place], [place] [address] Performed By: #### 2 4323-8, 52670-7, 1988-03, ####[facility] LABORATORYCLIA [id number] [place] [id number] [place] CO2 [Moles/Vol] 25 mmol/L Normal 22-30 [facility] Comment on above: Order Comment: Speci men Type: BLOOD SPECIMENOrdering Facility: [facility] Address: [address] [place] [address] Performed By: #### 2 4323-8, 90163-2, 1988-03, ####[facility] LABORATORYCLIA [id number] [place] [address] [place] Creatinine [Mass/Vol] 1.02 mg/dL High 0.58-0.96 [facility] Comment on above: Order Comment: Speci men Type: BLOOD SPECIMENOrdering Facility: [facility] Address: [address] [place] [address] Performed By: #### 2 4323-8, 48385-3, 1988-03, ####[facility] LABORATORYCLIA [id number] [address] Creatinine and Glomerular filtration rate.predicted panel (S/P/Bld) 53 mL/min/1.73m??? Low >=60 [facility] Comment on above: Order Comment: Speci men Type: BLOOD SPECIMENOrdering Facility: [facility] Address: [address] [place] [address] Result Comment: Hilda mated Glomerular Filtration Rate [...] actual GFR. Performed By: #### 2 4323-8, 71826-1, 1988-03, ####[facility] LABORATORYCLIA [id number] [place] [address] [place] Glucose [Mass/Vol] 314 mg/dL High 74-99 [facility] Comment on above: Order Comment: Fan men Type: BLOOD SPECIMENOrdering Facility: [facility] Address: [address] [place] [address] Result Comment: The [place] Diabetes Association (ADA) provides guidance for cutoff [...] Standards of Medical Care in Diabetes 2016, [place] [employer]. Diabetes Care. 2016.39(Suppl 1). Performed By: #### 2 4323-8, 52171-2, 1988-03, ####[facility] LABORATORYCLIA [id number] [place] [address] [place] Potassium [Moles/Vol] 4.7 mmol/L Normal 3.7-5.1 [facility] Comment on above: Order Comment: Fan halina Type: BLOOD SPECIMENOrdering Facility: [facility] Address: [address] [place] [address] Performed By: #### 2 4323-8, 50937-3, 1988-03, ####[facility] LABORATORYCLIA [id number] [place] [id number] [place] Protein [Mass/Vol] 6.4 g/dL Normal 6.3-8.0 [facility] Comment on above: Order Comment: Fan meade Type: BLOOD SPECIMENOrdering Facility: [facility] Address: [address] [place] [address] Performed By: #### 2 4323-8, 60689-2, 1988-03, ####[facility] LABORATORYCLIA [id number] [place] [id number] [place] Sodium [Moles/Vol] 134 mmol/L Low 136-144 [facility] Comment on above: Order Comment: Fan meade Type: BLOOD SPECIMENOrdering Facility: [facility] Address: [address] [place] [address] Performed By: #### 2 4323-8, 43696-2, 1988-03, 28820-0 ####[facility] LABORATORYCLIA [id number] [place] [address] [place] Urea nitrogen [Mass/Vol] 37 mg/dL High 7-21 [facility] Comment on above: Order Comment: Fan men Type: BLOOD SPECIMENOrdering Facility: [facility] Address: [address] [place] [address] Performed By: #### 2 4323-8, 76919-6, 1988-03, ####[facility] LABORATORYCLIA [id number] [address] [place] ED PROV NOTEon 11-21-2024 ED PROV NOTE Normal [facility] ED Triage Noteon 11-21-2024 ED Triage Note Normal [facility] HbA1c (Bld)on 11-21-2024 Average glucose Estimated from glycated hemoglobin (Bld) [Mass/Vol] 252 mg/dL Normal [facility] Comment on above: Order Comment: Fan meade Type: BLOOD SPECIMENOrdering Facility: [facility] Address: [address] [place] [address] Result Comment: eAG: (Estimated average glucose) is a calculated value from HgbA1c and is outbound call center representative of the average blood glucose level in the last 2-3 month period. Performed By: #### 5 5454-3 ####[facility] LAB[facility]IA [id number] [facility] [id number] [address] [place]#### 33962-1 ####[facility] LABORATORYCLIA [id number] [address] [place] HbA1c (Bld) [Mass fraction] 10.4 % High 4.3-5.6 [facility] Comment on above: Order Comment: Katei men Type: BLOOD SPECIMENOrdering Facility: [facility] Address: [address] [place] [address] Result Comment: [place] Diabetes Association guidelines indicate that patients with HgbA1c in the range 5.7-6.4% are at increased risk for development of diabetes, and intervention by lifestyle modification may be beneficial. HgbA1c greater or equal to 6.5% is considered diagnostic of diabetes. Performed By: #### 5 5454-3 ####[facility] LABCLIA [id number] [address]#### 39301-4 ####[facility]ITALCLIA [id number] [address] NT-proBNP [facility] Hospitalon [facility]-21 Natriuretic peptide.B prohormone N-Terminal [Mass/Vol] 1157 pg/mL High <450 [facility] Comment on above: Order Comment: Speci men Type: BLOOD SPECIMENOrdering Facility: [facility] Address: [address] [place] [address] Performed By: #### 2 4323-8, 33361-7, 1988-03, ####[facility]ITAL[facility]IA [id number] [address] Procalcitonin [facility]-21-2024 Procalcitonin [Mass/Vol] 0.14 ng/mL High <0.09 [facility] Comment on above: Order Comment: Fan meade Type: BLOOD SPECIMENOrdering Facility: [facility] Address: [address] [place] [address] Result Comment: For a guided interpretation of test results, please visit the Change in Procalcitonin Calculator, [email or web address]. Performed By: #### 2 4323-8, 65189-6, 1988-03, ####[facility] [id number] [place] [id number] [facility] SEPSIS LACTATE W/ REFLEX (IN ITIAL)on 11-21-2024 Lactate [Moles/Vol] 2.2 mmol/L High 0.5-2.[address] [facility] Comment on above: Order Comment: Speci men Type: BLOOD SPECIMENOrdering Facility: [facility] Address: [address] [place] [address] Performed By: #### S LACTR ####[facility] [id number] [place] [address] [place] XR ANKLE 3V AP/LAT/OBL RTon 11-21-2024 XR ANKLE 3V AP/LAT/OBL RT Normal [facility] CBC W Auto Differential pane l (Bld)on 11-19-2024 Basophils (Bld) [#/Vol] 0.05 10*3/uL Normal <0.11 [facility] Comment on above: Order Comment: Speci men Type: BLOOD SPECIMENOrdering Facility: [facility] Address: [address] [place] [address] Performed By: #### 5 7021-8 ####[facility] [id number] [place] [address] [place] Basophils/100 WBC (Bld) 0.5 % Normal [facility] Comment on above: Order Comment: Speci men Type: BLOOD SPECIMENOrdering Facility: [facility] Address: [address] [place] [address] Performed By: #### 5 7021-8 ####[facility] [id number] [place] [address] [place] Differential cell count method Nom (Bld) Auto Normal [facility] Comment on above: Order Comment: Speci men Type: BLOOD SPECIMENOrdering Facility: [facility] Address: [address] [place] [address] Performed By: #### 5 7021-8 ####[facility] [id number] [place] [address] [place] Eosinophils (Bld) [#/Vol] 0.12 10*3/uL Normal <0.46 [facility] Comment on above: Order Comment: Speci men Type: BLOOD SPECIMENOrdering Facility: [facility] Address: [address] [place] [address] Performed By: #### 5 7021-8 ####[facility] [id number] [place] [address] [place] Eosinophils/100 WBC (Bld) 1.3 % Normal [facility] Comment on above: Order Comment: Speci men Type: BLOOD SPECIMENOrdering Facility: [facility] Address: [address] [place] [address] Performed By: #### 5 7021-8 ####[facility] [id number] [place] [address] [place] Erythrocyte distribution width (RBC) [Ratio] 14.8 % Normal 11.5-15.0 [facility] Comment on above: Order Comment: Speci men Type: BLOOD SPECIMENOrdering Facility: [facility] Address: [address] [place] [address] Performed By: #### 5 7021-8 ####[facility] [id number] [place] [address] [place] Hematocrit (Bld) [Volume fraction] 35.8 % Low 36.0-46.0 [facility] Comment on above: Order Comment: Speci men Type: BLOOD SPECIMENOrdering Facility: [facility] Address: [address] [place] [address] Performed By: #### 5 7021-8 ####[facility] [id number] [place] [address] [place] Hemoglobin (Bld) [Mass/Vol] 11.5 g/dL Normal 11.5-15.5 [facility] Comment on above: Order Comment: Speci men Type: BLOOD SPECIMENOrdering Facility: [facility] Address: [address] [place] [address] Performed By: #### 5 7021-8 ####[facility] [id number] [place] [address] [place] Immature granulocytes (Bld) [#/Vol] 0.07 10*3/uL Normal <0.10 [facility] Comment on above: Order Comment: Speci men Type: BLOOD SPECIMENOrdering Facility: [facility] Address: [address] [place] [address] Performed By: #### 5 7021-8 ####[facility] [id number] [place] [address] [place] Immature granulocytes/100 WBC (Bld) 0.7 % Normal [facility] Comment on above: Order Comment: Speci men Type: BLOOD SPECIMENOrdering Facility: [facility] Address: [address] [place] [address] Performed By: #### 5 7021-8 ####[facility] [id number] [place] [address] [place] Lymphocytes (Bld) [#/Vol] 1.19 10*3/uL Normal 1.00-4.00 [facility] Comment on above: Order Comment: Speci men Type: BLOOD SPECIMENOrdering Facility: [facility] Address: [address] [place] [address] Performed By: #### 5 7021-8 ####[facility] [id number] [place] [address] [place] Lymphocytes/100 WBC (Bld) 12.7 % Normal [facility] Comment on above: Order Comment: Speci men Type: BLOOD SPECIMENOrdering Facility: [facility] Address: [address] [place] [address] Performed By: #### 5 7021-8 ####[facility] [id number] [place] [address] [place] MCH (RBC) [Entitic mass] 28.0 pg Normal 26.0-34.0 [facility] Comment on above: Order Comment: Speci men Type: BLOOD SPECIMENOrdering Facility: [facility] Address: [address] [place] [address] Performed By: #### 5 7021-8 ####[facility] [id number] [place] [address] [place] MCHC (RBC) [Mass/Vol] 32.1 g/dL Normal 30.5-36.0 [facility] Comment on above: Order Comment: Speci men Type: BLOOD SPECIMENOrdering Facility: [facility] Address: [address] [place] [address] Performed By: #### 5 7021-8 ####[facility] [id number] [place] [address] [place] MCV (RBC) [Entitic vol] 87.1 fL Normal 80.0-100.0 [facility] Comment on above: Order Comment: Speci men Type: BLOOD SPECIMENOrdering Facility: [facility] Address: [address] [place] [address] Performed By: #### 5 7021-8 ####[facility] [id number] [place] [address] [place] Monocytes (Bld) [#/Vol] 0.67 10*3/uL Normal <0.87 [facility] Comment on above: Order Comment: Speci men Type: BLOOD SPECIMENOrdering Facility: [facility] Address: [address] [place] [address] Performed By: #### 5 7021-8 ####[facility] [id number] [place] [address] [place] Monocytes/100 WBC (Bld) 7.1 % Normal [facility] Comment on above: Order Comment: Speci men Type: BLOOD SPECIMENOrdering Facility: [facility] Address: [address] [place] [address] Performed By: #### 5 7021-8 ####[facility] [id number] [place] [address] [place] Neutrophils (Bld) [#/Vol] 7.29 10*3/uL Normal 1.45-7.50 [facility] Comment on above: Order Comment: Speci men Type: BLOOD SPECIMENOrdering Facility: [facility] Address: [address] [place] [address] Performed By: #### 5 7021-8 ####[facility] [id number] [place] [address] [place] Neutrophils/100 WBC (Bld) 77.7 % Normal [facility] Comment on above: Order Comment: Speci men Type: BLOOD SPECIMENOrdering Facility: [facility] Address: [address] [place] [address] Performed By: #### 5 7021-8 ####[facility] [id number] [place] [address] [place] Nucleated RBC (Bld) [#/Vol] 10*3/uL Normal <0.01 [facility] Comment on above: Order Comment: Speci men Type: BLOOD SPECIMENOrdering Facility: [facility] Address: [address] [place] [address] Performed By: #### 5 7021-8 ####[facility] [id number] [place] [address] [place] Nucleated RBC/100 WBC (Bld) [Ratio] 0.0 /100 WBC Normal [facility] Comment on above: Order Comment: Speci men Type: BLOOD SPECIMENOrdering Facility: [facility] Address: [address] [place] [address] Performed By: #### 5 7021-8 ####[facility] [id number] [place] [address] [place] Platelet mean volume (Bld) [Entitic vol] 9.6 fL Normal 9.0-12.7 [facility] Comment on above: Order Comment: Speci men Type: BLOOD SPECIMENOrdering Facility: [facility] Address: [address] [place] [address] Performed By: #### 5 7021-8 ####[facility] [id number] [place] [address] [place] Platelets (Bld) [#/Vol] 405 10*3/uL High 150-400 [facility] Comment on above: Order Comment: Speci men Type: BLOOD SPECIMENOrdering Facility: [facility] Address: [address] [place] [address] Performed By: #### 5 7021-8 ####[facility] [id number] [place] [address] [place] RBC (Bld) [#/Vol] 4.11 10*6/uL Normal 3.90-5.20 [facility] Comment on above: Order Comment: Speci men Type: BLOOD SPECIMENOrdering Facility: [facility] Address: [address] [place] [address] Performed By: #### 5 7021-8 ####[facility] [id number] [place] [address] [place] WBC (Bld) [#/Vol] 9.39 10*3/uL Normal 3.70-11.00 [facility] Comment on above: Order Comment: Speci men Type: BLOOD SPECIMENOrdering Facility: [facility] Address: [address] [place] [address] Performed By: #### 5 7021-8 ####[facility] [id number] [place] [address] [place] Ferritin SerPl-mCncon 2024 Ferritin [Mass/Vol] 39.6 ng/mL Normal 14.7-205.1 [facility] Comment on above: Order Comment: Speci men Type: BLOOD SPECIMENOrdering Facility: [facility] Address: [address] [place] [address] Performed By: #### 5 0190-8, 6-4 ####[facility] [id number] [place] [address] [place] Iron and Iron binding capaci ty panelon 11-19-2024 Iron [Mass/Vol] 65 ug/dL Normal 41-186 [facility] Comment on above: Order Comment: Speci men Type: BLOOD SPECIMENOrdering Facility: [facility] Address: [address] [place] [address] Performed By: #### 5 0190-8, 2275-4 ####[facility] [id number] [address] [place] Iron binding capacity [Mass/Vol] 392 ug/dL High 232-386 [facility] Comment on above: Order Comment: Speci men Type: BLOOD SPECIMENOrdering Facility: [facility] Address: [address] [place] [address] Performed By: #### 5 0190-8, 2275-4 ####[facility] [id number] [place] [address] [place] Iron/TIBC [Molar ratio] 16.6 % Normal 15.0-57.0 [facility] Comment on above: Order Comment: Katei men Type: BLOOD SPECIMENOrdering Facility: [facility] Address: [address] [place] [address] Performed By: #### 5 0190-8, 2275-4 ####[facility] [id number] [place] [address] [place] MR Ankle - right WO contrast on 11-19-2024 IMPRESSION: Nonspecific circumferential subcutaneous/soft tissue edema involving the distal leg and ankle. Muscle fatty changes and edema which may be related to disuse. Moderate midfoot osteoarthritis. No evidence of inflammatory arthritis. Learning And Development Administrator: PHU Transcribe Date/Time: Nov 19 2024 10:47A Dictated by : CHANDNI ZIMMERMAN MD This examination was interpreted and the report reviewed and electronically signed by: LAZARO OHARA MD on Nov 19 2024 1:28PM [facility] DIVISION OF RADIOLOGY * * *Final Report* [...] significant additional findings. DIVISION OF RADIOLOGY Provider, [facility] - 11/19/2024 * * *Final [...] midfoot osteoarthritis. No evidence of inflammatory arthritis. Learning And Development Administrator: PSCB Transcribe Date/Time: Nov 19 2024 10:47A Dictated by : CHANDNI ZIMMERMAN MD This examination was interpreted and the report reviewed and electronically signed by: LAZARO OHARA MD on Nov 19 2024 1:28PM [facility] Radiology Study observation (narrative) [facility] MR Ankle - right WO contrast Ordered By: [facility] Provider on 11-19-2024 [facility] MRI ANKLE WO IVCON RTon MRI ANKLE WO IVCON RT * * *Final Report* * * DATE OF EXAM: Nov 19 2024 10:08AM M 0164 - MRI ANKLE WO IVCON RT [...] midfoot osteoarthritis. No evidence of inflammatory arthritis. Learning And Development Administrator: PSCMary Transcribe Date/Time: Nov 19 2024 10:47A Dictated by : CHANDNI ZIMMERMAN MD This examination was interpreted and the report reviewed and electronically signed by: LAZARO OHARA MD on Nov 19 2024 1:28PM EST [id number] Normal [facility] Zinc SerPl-mCncon 11-19-2024 Zinc [Mass/Vol] 55 ug/dL Low 60-120 [facility] Comment on above: Order Comment: Speci men Type: BLOOD SPECIMEN Ordering Facility: [facility] Address: [address] [place] [address] Result Comment: This test was developed, and its performance characteristics determined by the [facility] Department of Pathology and Laboratory Medicine. It has not been cleared or approved by the FDA. The [facility] Department of Pathology and Laboratory Medicine is regulated under CLIA as qualified to perform high-complexity testing. This test is used for clinical purposes. It should not be regarded as investigational or for research. Performed By: #### 5 763-8 #### [facility] CLIA [id number] [address] [place] [address] OF [facility] Arti 11-06-2024 DRAKEN Telephone ([facility]) CAROLYUSUF ([id number]) 1935 F [place][birth year] Date Time Provider Department 11/06/24 WILLIE KAUR [facility] During your visit today, we recorded the following information about you: Willie Kaur APRN.DRAKE 11/06/2024 8:58 AM Signed Currently has Rheumatology scheduled 01/04/25. Are there any sooner appointments and would family be interested? She has been seeing Hematology and they think that her abnormal blood work may have a Rheumatology cause. Willie Kaur APRN.DRAKE Slava Sena 11/06/2024 9:16 AM Signed Patient [...] this patient by: CAREGIVER José Miguel Swanson [facility] Problem List As Of Date [...] 07/17/2013 05/11/2016 (more content not included)... 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 Patient is leaving to [place] for 2 weeks I will schedule lab [...] BLOOD COUNT AND DIFFERENTIAL [SQCBCDIF] Order #: [id number] FUTURE IRON AND TIBC [SQIRON] Order #: [id number] FUTURE FERRITIN [SQFERR] Order #: [id number] FUTURE ZINC BLD [SQZINC] Order #: [id number] FUTURE Prescriptions as of 11/05/2024 - meloxicam (MOBIC) 15 mg tablet TAKE 1 TABLET BY MOUTH ONCE DAILY NEEDED FOR PAIN. DO NOT COMBINE WITH DICLOFENAC GEL - traZODone (DESYREL) 50 mg tablet Take 1 tablet by mouth at bedtime as needed for sedation. - blood sugar diagnostic (eMotion TechnologiesUCH ULTRA TEST) test strip Test blood [...] this patient by: CAREGIVER José Miguel Swanson [facility] Problem List As Of Date [...] 01/08/2010 09/15/2011 Diabetes Mellitus Type II, Uncontrolled; 2000 [*02/22/2010 12/01/2016 Degenerative arthritis of hip [M16.9] [...] [N18.9] 05/11/2016 (more content not included)... Normal [facility] CNOVon 11-01-2024 CNOV Office Visit (OTMBHT ) YUSUF MEDINA ([id number]) 1935 F [place] Date Time Provider Department 11/01/24 2:50 PM SIMONE KEVIN During your visit today, we recorded the following information about you: Simone Kevin MD 11/01/2024 2:19 PM Signed November 01, 2024 HPI: Yusuf Carol is following up for right ankle. Reports [...] L REMV CATARACT EXTRACAP,INSERT LENS Bilateral 2020 [facility] Family History: FAMILY HISTORY Problem Relation Age of Onset None Brother None Sister None Brother Medications: Current Outpatient Medications Medication Sig meloxicam (MOBIC) 15 mg tablet TAKE 1 TABLET BY MOUTH ONCE DAILY NEEDED FOR PAIN. DO NOT COMBINE WITH DICLOFENAC GEL traZODone (DESYREL) 50 mg tablet Take 1 tablet by mouth at bedtime as needed for sedation. blood sugar diagnostic (Performable ULTRA TEST) test strip Test blood sugar [...] Plan: Rig (more content not included)... Normal [facility] CRP [Mass/Vol] 0.3 mg/dL Normal <0.9 [facility] Comment on above: Order Comment: Speci men Type: BLOOD SPECIMEN Ordering Facility: [facility] Address: [address] [place] [address] Performed By: #### 2 132-9, 2284-8 #### [facility] CLIA [id number] [address] [place] [address] [place] ESR Westergren method (Bld) [Velocity]on 11-01-2024 ESR (Bld) [Velocity] 36 mm/h High 0-[address] [facility] Comment on above: Order Comment: Speci men Type: BLOOD SPECIMEN Ordering Facility: [facility] Address: [address] [place] [address] Performed By: #### 5 763-8 #### [facility] CLIA [id number] [place] XR ANKLE 3V [...] planus and mild to moderate midfoot osteoarthritis. Learning And Development Administrator: Xolve Transcribe Date/Time: Nov 02 2024 11:17A Dictated by : SHARYN UMANA MD This examination was interpreted and the report reviewed and electronically signed by: SHARYN UMANA MD on Nov 02 2024 11:20AM EST [id number] Normal [facility] XR FOOT 3V AP/LAT/OBL RTon 1 01-02-2024 [...] planus and mild to moderate midfoot osteoarthritis. Learning And Development Administrator: PHU Transcribe Date/Time: Nov 02 2024 11:17A Dictated by : SHARYN UMANA MD This examination was interpreted and the report reviewed and electronically signed by: SHARYN UMANA MD on Nov 02 2024 11:20AM EST [id number] Normal [facility] CNOVon 10-29-2024 CNOV Office Visit ([facility] ) YUSUF MEDINA ([id number]) 1935 F [place] Date Time Provider Department 10/29/24 4:20 PM AB BENSON [facility] During your visit today, we recorded the following information about you: Temperature Pulse Blood pressure Weight 99.3 degrees 66/minute 159/72 48 kg Ab Benson MD 11/04/2024 7:29 PM Signed This note was created using Thismomentriter. Subjective Yusuf Medina is a 88 year [...] needed for sedation. - blood sugar diagnostic (Performable ULTRA TEST) test strip Test blood sugar [...] this patient by: CAREGIVER José Miguel Swanson [facility] Problem List As Of Date [...] intervert*10/31/2010 Osteoart (more content not included)... Normal [facility] CNOVon 09-20-2024 CNOV Office Visit (OTMBHT ) YUSUF MEDINA ([id number]) 1935 [place] Date Time Provider Department 09/20/24 9:10 [...] L REMV CATARACT EXTRACAP,INSERT LENS Bilateral 2020 [facility] Family History: FAMILY HISTORY Problem Relation Age of Onset None Brother None Sister None Brother Medications: Current Outpatient Medications Medication Sig traZODone (DESYREL) 50 mg tablet Take 1 tablet by mouth at bedtime as needed for sedation. blood sugar diagnostic (Idenix PharmaceuticalsTOUCH ULTRA TEST) test strip Test blood sugar [...] malleolus NTTP (more content not included)... Normal [facility] BCR/ABL1 P210 AND P190 DIAGN OSTIC PCR BLOODon 09-19-2024 BCR/ABL1 P210 AND P190 DIAGNOSTIC PCR BLOOD RESULT BCR/ABL1 p210 and p190 Diagnostic PCR Laboratory Accession Number: [id number] Sample Type: Peripheral Blood Result: NOT DETECTED; [...] this sample, and cDNA prepared by reverse parking lot laborer. Real time PCR was performed in two separate reactions, using primers for e13a2 and/or e14a2 BCR/ABL1 fusion transcripts and ABL1 transcripts for p210 detection and primers for e1a2 BCR/ABL1 fusion transcripts and ABL1 transcripts for p190 detection (QuantideX BCR/ABL IS assay, [employer], [place], [place]). This assay has a limit of quantification and limit of detection of 0.002 percent IS or MR4.7 for p210 fusion transcripts, and a limit of quantification of 0.0036 percent (LR4.4) and limit of detection of 0.0025 percent (LR4.6) for p190 transcripts. Levels detected above or below the assays' limits of quantitation are resulted as "DETECTED" and quantitation indicated as "greater than" or "less than" the limits of quantitation for the IS percent, MR level and NCN, respectively. Disclaimer: This test was developed and its performance characteristics determined by [facility]'s Pathology and Laboratory Medicine Department. It has not been cleared or approved by the FDA. [facility] Pathology and Laboratory Medicine Department is regulated under CLIA as certified to perform high-complexity testing. This test is used for clinical purposes. It should not be regarded as investigational or for research. Testing and interpretation performed at [facility], [address] [place] [address]. CLIA Number: [id number] As reviewed by José Miguel Persaud MD [facility] METHYLMALONIC ACIDon 024 Methylmalonate [Moles/Vol] 0.29 umol/L [facility] - 0.40 umol/L [facility] Comment on above: This test was develo ped, and its performance characteristics determined by the [facility] Department of Pathology and Laboratory Medicine. It has not been cleared or approved by the FDA. The [facility] Department of Pathology and Laboratory Medicine is regulated under CLIA as qualified to perform high-complexity testing. This test is used for clinical purposes. It should not be regarded as investigational or for research. Methylmalonate [Moles/Vol]on 09-19-2024 Interpretation and review of laboratory results Normal [facility] XR CALCANEUS 2V AXIAL/LAT RT on 09-19-2024 [...] planus with calcaneal enthesophytes and bone demineralization. Learning And Development Administrator: PHU Transcribe Date/Time: Sep 21 2024 11:34A Dictated by : ALEJANDRA MONCADA MD This examination was interpreted and the report reviewed and electronically signed by: ALEJANDRA MONCADA MD on Sep 21 2024 11:39AM EST [id number] Normal [facility] XR FOOT 3V AP/LAT/OBL RTon 1 11-19-2023 [...] toes with hammertoe deformities. 4. Calcaneal enthesophytes. Learning And Development Administrator: PSCB Transcribe Date/Time: Sep 21 2024 11:40A Dictated by : ALEJANDRA MONCADA MD This examination was interpreted and the report reviewed and electronically signed by: ALEJANDRA MONCADA MD on Sep 21 2024 11:59AM EST [id number] [facility] [place] [facility] ANTIBODY IGGOrdered By: Robin Zavala on 09-18-2024 Cyclic citrullinated peptide IgG Qn NINF [facility] CNPNon 09-18-2024 CNPN Telephone (HEMAST) YUSUF MEDINA ([id number]) 1935 [facility] Date Time Provider Department 09/18/24 GRUPO MENDEZ HEMAST During your visit today, we recorded the following information about you: Grupo Mendez MD 09/18/2024 9:19 PM Signed Results were reviewed. I spoke with [id number] Demetria about suspicion for calcaneal bone fracture. [...] initial encounter [S92.001A] Order(s):CONSULT PANEL TO ORTHOPAEDICS [561203] Order #: [id number]: 1 FUTURE Prescriptions as of 09/18/2024 - traZODone (DESYREL) 50 mg tablet Take 1 tablet by mouth at bedtime as needed for sedation. - blood sugar diagnostic (Idenix PharmaceuticalsTOUCH ULTRA TEST) test strip Test blood sugar [...] this patient by: CAREGIVER José Miguel Swanson [facility] Problem List As Of Date [...] dependent (NIDDM*03/07 (more content not included)... Normal [facility] [place] COPPER BLOODon 09-18-2024 Copper [Mass/Vol] 128 ug/dL 80 - 155 ug/dL [facility] Comment on above: This test was corina jiang, and its performance characteristics determined by the [facility] Department of Pathology and Laboratory Medicine. It has not been cleared or approved by the FDA. The [facility] Department of Pathology and Laboratory Medicine is regulated under CLIA as qualified to perform high-complexity testing. This test is used for clinical purposes. It should not be regarded as investigational or for research. Interpretation and review of laboratory results Normal [facility] Cyclic citrullinated peptide IgG QnOrdered By: Robin Zavala on 09-18-2024 CCP Antibody IgG Qualitative Negative Negative [facility] Interpretation and review of laboratory results Normal [facility] This test is used as aid in diagnosis of Rheumatoid arthritis (RA). A negative result cannot rule out RA where clinically suspected. Clinical correlation is required. The following results were obtained with an [employer] QUANTA Lite CCP IgG JOE. Cyclic Citrullinated Peptide IgG values obtained with different manufacturers' assay methods may not be used interchangeably. The magnitude of the reported IgG levels cannot be correlated to an endpoint titer. [facility] FERRITINon 09-18-2024 Ferritin [Mass/Vol] 59.9 ng/mL 14.7 - 2 05.1 ng/mL [facility] FOLATE, SERUMon 09-18-2024 Folate [Mass/Vol] 18.8 ng/mL 4.7 - PINF ng/mL [facility] Ferritin [Mass/Vol]on 2023 Interpretation and review of laboratory results Normal [facility] HOMOCYSTEINEon 09-18-2024 Homocysteine [Moles/Vol] 21.2 umol/L High NINF - 15.1 umol/L [facility] Homocysteine [Moles/Vol]on 11-18-2023 Interpretation and review of laboratory results Abnormal [facility] Iron and Iron binding capaci ty panelon 09-18-2024 Interpretation and review of laboratory results Abnormal [facility] Iron [Mass/Vol] 29 ug/dL Low 41 - 186 ug/dL [facility] Iron binding capacity [Mass/Vol] 407 ug/dL High 232 - 386 ug/dL [facility] Iron/TIBC [Molar ratio] 7.1 % Low 15.0 - 57.0 % [facility] No Panel InformationOrdered By: Cheryl Sinha on 09-18-2024 [facility] No Panel Informationon 09-18 Interpretation and review of laboratory results Normal [facility] Nuclear Ab IA Ql (S)Ordered By: Lien Matson on 09-18-2024 RUBEN Scr Qual Positive Abnormal Negative [facility] Comment on above: The qualitative anti nuclear antibody screen test performed using the following antigens: dsDNA, Chromatin, Ribosomal P, SS-A 60, SS-A 52, SS-B, Sm, SmRNP, BUILDING CONSTRUCTION ESTIMATOR A, BUILDING CONSTRUCTION ESTIMATOR 68, Scl-70, Nadege-1, and Centromere B. Methodology: Multiplex flow immunoassay. Interpretation and review of laboratory results Abnormal [facility] URIC ACIDon 09-18-2024 Urate [Mass/Vol] 5.6 mg/dL 2.5 - 6.6 mg/dL [facility] US DVT LOWER RTon 09-18-2024 US DVT LOWER RT Normal [facility] Lower extremity vein - ri ghton 09-18-2024 IMPRESSION: Negative study for proximal DVT in the right lower extremity. Negative study for calf DVT in the right lower extremity. Negative study for superficial thrombophlebitis in the imaged segments of the right lower extremity. Learning And Development Administrator: PHU Transcribe Date/Time: Sep 18 2024 9:14A Dictated by : ZACH THOMPSON MD This examination was interpreted and the report reviewed and electronically signed by: ZACH THOMPSON MD on Sep 18 2024 9:20AM [facility] * * *Final Report* * * DATE OF EXAM: Sep 18 2024 8:44AM 1007 - US DVT LOWER RT / [...] spontaneous respirophasic flow. Normal response to augmentation. [facility] Provider, [facility] - 09/18/2024 * * *Final Report* * * DATE OF EXAM: Sep 18 2024 8:44AM 1007 - US DVT LOWER RT / [...] a permanent archive and interpreted remotely. MQ: LER_1 COMPARISON: None RESULT: RIGHT LOWER EXTREMITY PROXIMAL [...] imaged segments of the right lower extremity. Learning And Development Administrator: PHU Transcribe Date/Time: Sep 18 2024 9:14A Dictated by : ZACH THOMPSON MD This examination was interpreted and the report reviewed and electronically signed by: ZACH THOMPSON MD on Sep 18 2024 9:20AM EST [facility] Radiology Study observation (narrative) [facility] US Lower extremity vein - ri ghtOrdered By: Ccf Provider on 09-18-2024 [facility] Urate [Mass/Vol]on Interpretation and review of laboratory results Normal [facility] VITAMIN B12on 09-18-2024 Cobalamin (Vitamin B12) [Mass/Vol] 433 pg/mL 232 - 1245 pg/mL [facility] XR Ankle - right AP and Late ral and obliqueon 09-18-2024 IMPRESSION: Marked right ankle soft tissue swelling. Osteopenia and suspicion of nondisplaced calcaneus fracture. Degenerative changes, calcaneal enthesophytes, and pes planus. Learning And Development Administrator: PHU Transcribe Date/Time: Sep 18 2024 12:20P Dictated by : GERTRUDIS MONCADA MD This examination was interpreted and the report reviewed and electronically signed by: GERTRUDIS MONCADA MD on Sep 18 2024 12:22PM [facility] DIVISION OF RADIOLOGY * * *Final Report* * * DATE OF EXAM: Sep 17 2024 4:30PM [facility] 5297 - XR ANKLE 3V AP/LAT/OBL RT [...] ankle. Atherosclerotic calcifications. DIVISION OF RADIOLOGY Provider, [facility] - 09/18/2024 * * *Final Report* * * DATE OF EXAM: Sep 17 2024 4:30PM [facility] 5297 - XR ANKLE 3V AP/LAT/OBL RT [...] Degenerative changes, calcaneal enthesophytes, and pes planus. Learning And Development Administrator: PHU Transcribe Date/Time: Sep 18 2024 12:20P Dictated by : GERTRUDIS MONCADA MD This examination was interpreted and the report reviewed and electronically signed by: GERTRUDIS MONCADA MD on Sep 18 2024 12:22PM EST [facility] XR Ankle - right AP and Late ral and obliqueOrdered By: Ccf Provider on 09-18-2024 [facility] ZINC BLDOrdered By: Cheryl rodriguez on 09-18-2024 Zinc [Mass/Vol] 55 ug/dL Low 60 - 120 ug/dL [facility] Comment on above: This test was develo ped, and its performance characteristics determined by the [facility] Department of Pathology and Laboratory Medicine. It has not been cleared or approved by the FDA. The [facility] Department of Pathology and Laboratory Medicine is regulated under CLIA as qualified to perform high-complexity testing. This test is used for clinical purposes. It should not be regarded as investigational or for research. Zinc [Mass/Vol]Ordered By: Roxane Sinha on 09-18-2024 Interpretation and review of laboratory results Abnormal [facility] RUBEN BY IFA SCREENon 09-17-20 24 Nuclear Ab pattern (S) [Interp] Nuclear homogeneous Normal [facility] [place] Comment on above: Order Comment: Specleroy meade Type: BLOOD SPECIMEN Ordering Facility: [facility] Address: [address] [place] [address] Performed By: #### 5 7021-8 #### [facility] CLIA [id number] [address] [place] [address] OF [facility] Nuclear Ab Ql (S) Positive Abnormal Negative [facility] Comment on above: Order Comment: Fan meade Type: BLOOD SPECIMEN Ordering Facility: [facility] Address: [address] [place] [address] Result Comment: Anti -nuclear antibody test is used as an aid in diagnosis of systemic autoimmune diseases. Where positive and clinically warranted, follow-up using disease-specific testing is recommended. Low positive titers are not uncommon with advanced age, certain chronic infections, and malignancies among others. Test methodology: Indirect fluorescence immunoassay (IFA) using HEp-2 cells. 1:320 Performed By: #### 5 7021-8 #### [facility] CLIA [id number] [place] [address] [place] BCR/ABL1 P190 NCN P210 % IS MR BLOODon 09-17-2024 BCR/ABL1 P190 NCN(%BCR/ABL1:ABL1) N/A Normal [facility] [place] Comment on above: Order Comment: Speci men Type: BLOOD SPECIMENOrdering Facility: [facility] Address: [address] [place] [address] Performed By: #### B CRPB1 ####[facility] LIMSCLIA [id number] [place] [address] [place]#### ISMRNCNPB ####[facility] [id number] [place] [address] [place] BCR/ABL1 P210 %IS N/A Normal [facility] Comment on above: Order Comment: Speci men Type: BLOOD SPECIMENOrdering Facility: [facility] Address: [address] [place] [address] Performed By: #### B CRPB1 ####[facility] LIMSCLIA [id number] [place] [address] [place]#### ISMRNCNPB ####[facility] [id number] [place] [address] [place] BCR/ABL1 P210 MR N/A Normal [facility] Comment on above: Order Comment: Speci men Type: BLOOD SPECIMENOrdering Facility: [facility] Address: [address] [place] [address] Performed By: #### B CRPB1 ####[facility] LIMSCLIA [id number] [place] [address] [place]#### ISMRNCNPB ####[facility] [id number] [place] [id number] [place] BCR/ABL1 P210 AND P190 DIAGN OSTIC PCR BLOODon 09-17-2024 BCR/ABL1 P210 AND P190 DIAGNOSTIC PCR BLOOD RESULT Normal [facility] [place] Comment on above: Order Comment: Speci men Type: BLOOD SPECIMENOrdering Facility: [facility] Address: [address] [place] [id number] Result Comment: BCR/ ABL1 p210 and p190 Diagnostic PCR Laboratory Accession Number: [id number] Sample Type: Peripheral Blood Result: NOT DETECTED; [...] this sample, and cDNA prepared by reverse parking lot laborer. Real time PCR was performed in two separate reactions, using primers for e13a2 and/or e14a2 BCR/ABL1 fusion transcripts and ABL1 transcripts for p210 detection and primers for e1a2 BCR/ABL1 fusion transcripts and ABL1 transcripts for p190 detection ([employer]ideX BCR/ABL IS assay, [employer], [place], [place]). This assay has a limit of quantification and limit of detection of 0.002 percent IS or MR4.7 for p210 fusion transcripts, and a limit of quantification of 0.0036 percent (LR4.4) and limit of detection of 0.0025 percent (LR4.6) for p190 transcripts. Levels detected above or below the assays' limits of quantitation are resulted as "DETECTED" and quantitation indicated as "greater than" or "less than" the limits of quantitation for the IS percent, MR level and NCN, respectively. Disclaimer: This test was developed and its performance characteristics determined by [facility]'s Pathology and Laboratory Medicine Department. It has not been cleared or approved by the FDA. [facility]'s Pathology and Laboratory Medicine Department is regulated under CLIA as certified to perform high-complexity testing. This test is used for clinical purposes. It should not be regarded as investigational or for research. Testing and interpretation performed at [facility], [address] [place] [address]. CLIA Number: [id number] As reviewed by José Miguel Persaud MD Performed By: #### B CRPB1 ####[facility] LIMSCLIA [id number] [address]#### ISMRNCNPB ####[facility] [id number] [address] OF [facility] CBC W Ordered Manual Differe ntial panel (Bld)on 09-17-2024 Basophils (Bld) [#/Vol] 0.03 10*3/uL [facility] Basophils/100 WBC (Bld) 0.3 % [facility] Differential cell count method Nom (Bld) Auto [facility] Eosinophils (Bld) [#/Vol] 0.07 10*3/uL [facility] Eosinophils/100 WBC (Bld) 0.7 % [facility] Erythrocyte distribution width (RBC) [Ratio] 14.2 % 11.5 - 15.0 % [facility] Hematocrit (Bld) [Volume fraction] 35.2 % Low 36.0 - 46.0 % [facility] Hemoglobin (Bld) [Mass/Vol] 11.4 g/dL Low 11.5 - 15.5 g/dL [facility] Immature granulocytes (Bld) [#/Vol] 0.06 10*3/uL [facility] Immature granulocytes/100 WBC (Bld) 0.6 % [facility] Interpretation and review of laboratory results Abnormal [facility] Lymphocytes (Bld) [#/Vol] 1.42 10*3/uL [facility] Lymphocytes/100 WBC (Bld) 15.1 % [facility] MCH (RBC) [Entitic mass] 28.6 pg 26.0 - 34.0 pg [facility] MCHC (RBC) [Mass/Vol] 32.4 g/dL 30.5 - 36.0 g/dL [facility] MCV (RBC) [Entitic vol] 88.2 fL 80.0 - 100.0 fL [facility] Monocytes (Bld) [#/Vol] 0.52 10*3/uL [facility] Monocytes/100 WBC (Bld) 5.5 % [facility] Neutrophils (Bld) [#/Vol] 7.33 10*3/uL [facility] Neutrophils/100 WBC (Bld) 77.8 % [facility] Nucleated RBC (Bld) [#/Vol] [facility] Nucleated RBC/100 WBC (Bld) [Ratio] 0.0 % /100 WBC [facility] Platelet mean volume (Bld) [Entitic vol] 9.8 fL 9.0 - 12.7 fL [facility] Platelets (Bld) [#/Vol] 409 10*3/uL High [facility] RBC (Bld) [#/Vol] 3.99 10*6/uL 3.90 - 5.2 0 m/uL [facility] WBC (Bld) [#/Vol] 9.43 10*3/uL [facility] This is an appended report. These results have been appended to a previously verified report. [facility] Basophils (Bld) [#/Vol] 0.03 10*3/uL Normal <0.11 [facility] [place] Comment on above: Order Comment: Speci men Type: BLOOD SPECIMENOrdering Facility: [facility] Address: [address] [place] [address] Performed By: #### 1 4196-0, [id number] 34566-1 ####[facility] LAB[facility] [id number] [place] [address] [place] Basophils/100 WBC (Bld) 0.3 % Normal [facility] Comment on above: Order Comment: Speci men Type: BLOOD SPECIMENOrdering Facility: [facility] Address: [address] [place] [address] Performed By: #### 1 4196-0, [id number], STEVERARDO, 80103-5 ####[facility] LAB[facility] [id number] [place] [address] [place] Differential cell count method Nom (Bld) Auto Normal [facility] [place] Comment on above: Order Comment: Speci men Type: BLOOD SPECIMENOrdering Facility: [facility] Address: [address] [place] [address] Performed By: #### 1 4196-0, [id number], RADHA, 64192-5 ####[facility] LAB[facility] [id number] [place] [address] [place] Eosinophils (Bld) [#/Vol] 0.07 10*3/uL Normal <0.46 [facility] [place] Comment on above: Order Comment: Speci men Type: BLOOD SPECIMENOrdering Facility: [facility] Address: [address] [place] [address] Performed By: #### 1 4196-0, [id number], RADHA, 35268-3 ####[facility] [id number] [place] [address] [place] Eosinophils/100 WBC (Bld) 0.7 % Normal [facility] Comment on above: Order Comment: Speci men Type: BLOOD SPECIMENOrdering Facility: [facility] Address: [address] [place] [address] Performed By: #### 1 4196-0, [id number], RADHA, 55704-8 ####[facility] [id number] [place] [address] [place] Erythrocyte distribution width (RBC) [Ratio] 14.2 % Normal 11.5-15.0 [facility] [place] Comment on above: Order Comment: Speci men Type: BLOOD SPECIMENOrdering Facility: [facility] Address: [address] [place] [address] Performed By: #### 1 4196-0, [id number], RADHA, 05190-3 ####[facility] LAB[facility] [id number] [place] [address] [place] Hematocrit (Bld) [Volume fraction] 35.2 % Low 36.0-46.0 [facility] [place] Comment on above: Order Comment: Speci men Type: BLOOD SPECIMENOrdering Facility: [facility] Address: [address] [place] [address] Performed By: #### 1 4196-0, [id number], RADHA 68337-1 ####[facility] [id number] [place] [address] [place] Hemoglobin (Bld) [Mass/Vol] 11.4 g/dL Low 11.5-15.5 [facility] [place] Comment on above: Order Comment: Speci men Type: BLOOD SPECIMENOrdering Facility: [facility] Address: [address] [place] [address] Performed By: #### 1 4196-0, [id number], RADHA 42401-9 ####[facility] [id number] [place] [address] [place] Immature granulocytes (Bld) [#/Vol] 0.06 10*3/uL Normal <0.10 [facility] [place] Comment on above: Order Comment: Speci men Type: BLOOD SPECIMENOrdering Facility: [facility] Address: [address] [place] [address] Performed By: #### 1 4196-0, [id number], RADHA 33659-9 ####[facility] LAB[facility] [id number] [place] [address] [place] Immature granulocytes/100 WBC (Bld) 0.6 % Normal [facility] Comment on above: Order Comment: Speci men Type: BLOOD SPECIMENOrdering Facility: [facility] Address: [address] [place] [address] Performed By: #### 1 4196-0, [id number], RADHA 21410-2 ####[facility] [id number] [place] [address] [place] Lymphocytes (Bld) [#/Vol] 1.42 10*3/uL Normal 1.00-4.00 [facility] [place] Comment on above: Order Comment: Speci men Type: BLOOD SPECIMENOrdering Facility: [facility] Address: [address] [place] [address] Performed By: #### 1 4196-0, [id number], RADHA 82446-3 ####[facility] [id number] [place] [address] [place] Lymphocytes/100 WBC (Bld) 15.1 % Normal [facility] Comment on above: Order Comment: Speci men Type: BLOOD SPECIMENOrdering Facility: [facility] Address: [address] [place] [address] Performed By: #### 1 4196-0, [id number] 99377-2 ####[facility] [id number] [place] [address] [place] MCH (RBC) [Entitic mass] 28.6 pg Normal 26.0-34.0 [facility] Comment on above: Order Comment: Speci men Type: BLOOD SPECIMENOrdering Facility: [facility] Address: [address] [place] [address] Performed By: #### 1 4196-0, [id number], RADHA 08351-2 ####[facility] [id number] [place] [address] [place] MCHC (RBC) [Mass/Vol] 32.4 g/dL Normal 30.5-36.0 [facility] Comment on above: Order Comment: Speci men Type: BLOOD SPECIMENOrdering Facility: [facility] Address: [address] [place] [address] Performed By: #### 1 4196-0, [id number], STFRZAID, 66827-9 ####[facility] [id number] [place] [address] [place] MCV (RBC) [Entitic vol] 88.2 fL Normal 80.0-100.0 [facility] Comment on above: Order Comment: Speci men Type: BLOOD SPECIMENOrdering Facility: [facility] Address: [address] [place] [address] Performed By: #### 1 4196-0, [id number], STEVERARDO, 00380-4 ####[facility] [id number] [place] [address] [place] Monocytes (Bld) [#/Vol] 0.52 10*3/uL Normal <0.87 [facility] [place] Comment on above: Order Comment: Speci men Type: BLOOD SPECIMENOrdering Facility: [facility] Address: [address] [place] [address] Performed By: #### 1 4196-0, [id number], STEVERARDO, 04170-0 ####[facility] LAB[facility] [id number] [place] [address] [place] Monocytes/100 WBC (Bld) 5.5 % Normal [facility] Comment on above: Order Comment: Speci men Type: BLOOD SPECIMENOrdering Facility: [facility] Address: [address] [place] [address] Performed By: #### 1 4196-0, [id number], STFRZAID, 38151-0 ####[facility] [id number] [place] [address] [place] Neutrophils (Bld) [#/Vol] 7.33 10*3/uL Normal 1.45-7.50 [facility] [place] Comment on above: Order Comment: Speci men Type: BLOOD SPECIMENOrdering Facility: [facility] Address: [address] [place] [address] Performed By: #### 1 4196-0, [id number], STEVERARDO, 19171-1 ####[facility] [id number] [place] [address] [place] Neutrophils/100 WBC (Bld) 77.8 % Normal [facility] Comment on above: Order Comment: Speci men Type: BLOOD SPECIMENOrdering Facility: [facility] Address: [address] [place] [address] Performed By: #### 1 4196-0, [id number], RADHA, 95947-6 ####[facility] [id number] [place] [address] [place] Nucleated RBC (Bld) [#/Vol] 10*3/uL Normal <0.01 [facility] Comment on above: Order Comment: Speci men Type: BLOOD SPECIMENOrdering Facility: [facility] Address: [address] [place] [address] Performed By: #### 1 4196-0, [id number], RADHA, 99127-9 ####[facility] LABCLIA [id number] [place] [address] [place] Nucleated RBC/100 WBC (Bld) [Ratio] 0.0 /100 WBC Normal [facility] Comment on above: Order Comment: Speci men Type: BLOOD SPECIMENOrdering Facility: [facility] Address: [address] [place] [address] Performed By: #### 1 4196-0, [id number], STEVERARDO, 75335-5 ####[facility] LAB[facility] [id number] [place] [address] [place] Platelet mean volume (Bld) [Entitic vol] 9.8 fL Normal 9.0-12.7 [facility] Comment on above: Order Comment: Speci men Type: BLOOD SPECIMENOrdering Facility: [facility] Address: [address] [place] [address] Performed By: #### 1 4196-0, [id number], STFREV, 51229-8 ####[facility] LAB[facility] [id number] [place] [address] [place] Platelets (Bld) [#/Vol] 409 10*3/uL High 150-400 [facility] [place] Comment on above: Order Comment: Speci men Type: BLOOD SPECIMENOrdering Facility: [facility] Address: [address] [place] [address] Performed By: #### 1 4196-0, [id number], STFREV, 23124-3 ####[facility] [id number] [place] [address] [place] RBC (Bld) [#/Vol] 3.99 10*6/uL Normal 3.90-5.20 [facility] Comment on above: Order Comment: Speci men Type: BLOOD SPECIMENOrdering Facility: [facility] Address: [address] [place] [address] Performed By: #### 1 4196-0, [id number], STFREV, 66250-5 ####[facility] [id number] [place] [address] [place] WBC (Bld) [#/Vol] 9.43 10*3/uL Normal 3.70-11.00 [facility] Comment on above: Order Comment: Speci men Type: BLOOD SPECIMENOrdering Facility: [facility] Address: [address] [place] [address] Performed By: #### 1 4196-0, [id number], STFREV, 82262-0 ####[facility] [id number] [place] [address] [place] CNOVSPon 09-17-2024 CNOVSP Visit (SP) Office (HEMAST) YUSUF MEDINA ([id number]) 1935 F [address] Date Time Provider Department 09/17/24 3:10 PM [...] office to be evaluated for leukocytosis. ASSESSMENT: (D70.800) Leukocytosis, unspecified type (primary encounter diagnosis) Comment: [...] L REMV CATARACT EXTRACAP,INSERT LENS Bilateral 2020 [facility] FAMILY HISTORY Problem Relation Age of Onset [...] as needed for sedation. blood sugar diagnostic (Idenix PharmaceuticalsTOUCH ULTRA TEST) test strip Test blood sugar once daily glipiZIDE (GLUCOTROL XL) 2.5 mg 24 hr tablet TAKE 1 TABLET BY MOUTH ONCE DAILY lisinopril-hydroCHLORO thiazide (ZESTORETIC) 20-25 mg per tablet Take 1 tablet by mouth once daily. pioglitazone (more content not included)... Normal [facility] [place] COPPER BLOODon 09-17-2024 Copper [Mass/Vol] 128 ug/dL Normal 80-155 [facility] Comment on above: Order Comment: Specleroy meade Type: BLOOD SPECIMEN Ordering Facility: [facility] Address: [address] [place] [address] Result Comment: This test was developed, and its performance characteristics determined by the [facility] Department of Pathology and Laboratory Medicine. It has not been cleared or approved by the FDA. The [facility] Department of Pathology and Laboratory Medicine is regulated under CLIA as qualified to perform high-complexity testing. This test is used for clinical purposes. It should not be regarded as investigational or for research. Performed By: #### 5 763-8 #### [facility] CLIA [id number] [address] [place], [place] [address]K [id number] [place] [address] [place] Centromere Ab IF Ql (S)on Centromere Ab Qn (S) <0.2 Normal <1.[address] [facility] Comment on above: Order Comment: Fan meade Type: BLOOD SPECIMEN Ordering Facility: [facility] Address: [address] [place] [address] Result Comment: Anti -centromere antibody is used as in aid in diagnosis of systemic sclerosis. Clinical correlation is required. Test Methodology: Multiplex flow immunoassay. Performed By: #### 5 7021-8 #### [facility] CLIA [id number] [address] [place] [address] [place] CENTROMERE AB QUAL Negative Normal Negative [facility] Comment on above: Order Comment: Speci men Type: BLOOD SPECIMEN Ordering Facility: [facility] Address: [address] [place] [address] Performed By: #### 5 7021-8 #### [facility] CLIA [id number] [address] [place] [address] [place] Chromatin Ab Qnon 09-17-2024 CHROMATIN AB QUAL Negative Normal Negative [facility] Comment on above: Order Comment: Speci men Type: BLOOD SPECIMEN Ordering Facility: [facility] Address: [address] [place] [address] Performed By: #### 1 3964-2 #### [facility] CLIA [id number] [address] [place] [address] [place] Chromatin Ab SerPl-aCncon Chromatin Ab Qn <0.2 Normal <1.0 [facility] [place] Comment on above: Order Comment: Speci men Type: BLOOD SPECIMEN Ordering Facility: [facility] Address: [address] [place] [address] Result Comment: Test Methodology: Multiplex flow immunoassay. Performed By: #### 1 3964-2 #### [facility] CLIA [id number] [address] [place] [address] [place] Cyclic citrullinated peptide IgG Qnon 09-17-2024 CCP ANTIBODY IGG QUALITATIVE Negative Normal Negative [facility] [place] Comment on above: Order Comment: Speci men Type: BLOOD SPECIMEN Ordering Facility: [facility] Address: [address] [place] [address] Performed By: #### 5 763-8 #### [facility] CLIA [id number] [address] [place] [address] [place] DNA double strand Ab IA Qn ( S)on 09-17-2024 DNA ANTIBODY 175 IU/mL Normal <=200 [facility] [place] Comment on above: Order Comment: Speci men Type: BLOOD SPECIMEN Ordering Facility: [facility] Address: [address] [place] [address] Result Comment: Nega tive: <200 IU/mL Equivocal: 201-300 IU/mL Moderate Positive: 301-800 IU/mL Strong Positive: >801 IU/mL Performed By: #### 5 7021-8 #### [facility] CLIA [id number] [address] [place] [address] [place] [facility] DNA ANTIBODY QUALITATIVE INTERPRETATION Negative Normal Negative [facility] [place] Comment on above: Order Comment: Speci men Type: BLOOD SPECIMEN Ordering Facility: [facility] Address: [address] [place] [address] Performed By: #### 5 7021-8 #### [facility] CLIA [id number] [address] [place] [address] [place] EUFEMIA Jo1 Ab Ser-aCncon 2023 Nadege-1 extractable nuclear Ab Qn (S) <0.2 Normal <1.0 [facility] [place] Comment on above: Order Comment: Speci men Type: BLOOD SPECIMEN Ordering Facility: [facility] Address: [address] [place] [address] Performed By: #### 5 7021-8 #### [facility] CLIA [id number] [address] [place] [address] [place] EUFEMIA BUILDING CONSTRUCTION ESTIMATOR Ab Ser-aCncon 2023 Ribonucleoprotein extractable nuclear Ab Qn (S) <0.2 Normal <1.0 [facility] [place] Comment on above: Order Comment: Speci men Type: BLOOD SPECIMEN Ordering Facility: [facility] Address: [address] [place] [address] Performed By: #### 1 3964-2 #### [facility] CLIA [id number] [address] [place] [address] [place] [address] [place] Ribonucleoprotein extractable nuclear Ab Qn (S) 2.3 AI High <1.0 [facility] [place] Comment on above: Order Comment: Speci men Type: BLOOD SPECIMEN Ordering Facility: [facility] Address: [address] [place] [address] Performed By: #### 5 7021-8 #### [facility] CLIA [id number] [address] [place] [address] [place] [facility] [place] EUFEMIA SM IgG Ser-aCncon 2023 Bang extractable nuclear IgG Qn (S) <0.2 Normal <1.0 [facility] [place] Comment on above: Order Comment: Speci men Type: BLOOD SPECIMEN Ordering Facility: [facility] Address: [address] [place] [address] Performed By: #### 5 7021-8 #### [facility] CLIA [id number] [address] [place] [address] [place] EUFEM[place] SS-A Ab Ser-aCncon 09-17 Sjogrens syndrome-A extractable nuclear Ab Qn (S) <0.2 Normal <1.0 [facility] [place] Comment on above: Order Comment: Speci men Type: BLOOD SPECIMEN Ordering Facility: [facility] Address: [address] [place] [address] Result Comment: Test Methodology: Multiplex flow immunoassay. Performed By: #### 5 7021-8 #### [facility] CLIA [id number] [address] [place] [address] [place] [facility] [place] EUFEMIA SS-B Ab Ser-aCncon 09-17 Sjogrens syndrome-B extractable nuclear Ab Qn (S) <0.2 Normal <1.0 [facility] [place] Comment on above: Order Comment: Speci men Type: BLOOD SPECIMEN Ordering Facility: [facility] Address: [address] [place] [address] Result Comment: Anti -SSB (anti-La) antibody is used as an aid in diagnosis of a variety of systemic autoimmune diseases, especially for Sjogren's syndrome and systemic lupus erythematosus. Clinical correlation is required. Test Methodology: Multiplex flow immunoassay. Performed By: #### 1 3964-2 #### [facility] CLIA [id number] [address] [place] [address] [place] Ferritin SerPl-mCncon 2023 Ferritin [Mass/Vol] 59.9 ng/mL Normal 14.7-205.1 [facility] Comment on above: Order Comment: Speci men Type: BLOOD SPECIMENOrdering Facility: [facility] Address: [address] [place] [address] Performed By: #### 5 0190-8, 3084-1, 2276-4 ####[facility] [id number] [place] [address] [place] Folate SerPl-mCncon 09-17-20 Folate [Mass/Vol] 18.8 ng/mL Normal >4.7 [facility] Comment on above: Order Comment: Speci men Type: BLOOD SPECIMEN Ordering Facility: [facility] Address: [address] [place] [address] Performed By: #### 2 132-9, 2284-8 #### [facility] CLIA [id number] [address] [place] [address] [place] Hcys SerPl-sCncon 09-17-2024 Homocysteine [Moles/Vol] 21.2 umol/L High <15.1 [facility] [place] Comment on above: Order Comment: Speci men Type: BLOOD SPECIMEN Ordering Facility: [facility] Address: [address] [place] [address] Performed By: #### 5 763-8 #### [facility] CLIA [id number] [address] [place] [address] [place] IMMUNOFIXATION SCREEN, SERUM on [...] monoclonal gammopathy. Clinical correlation is necessary. Normal [facility] [place] Comment on above: Order Comment: Speci men Type: BLOOD SPECIMENOrdering Facility: [facility] Address: [address] [place] [address] Performed By: #### I FESC ####[facility] [id number] [place] [address] [place] MPA RESULT A poorly defined region of restricted mobility is present that may represent an M protein. Abnormal No M protein is identified. [facility] [place] Comment on above: Order Comment: Speci men Type: BLOOD SPECIMENOrdering Facility: [facility] Address: [address] [place] [address] Performed By: #### I FESC ####[facility] [id number] [address] [place] STAFF REVIEW (MPA) Reviewed by Brianne Mosley M.D., Ph.D Normal [facility] [place] Comment on above: Order Comment: Speci men Type: BLOOD SPECIMENOrdering Facility: [facility] Address: [address] [place] [address] Performed By: #### I FESC ####[facility] [id number] [place] [address] [place] IMMUNOGLOBULINS,IGG,IGA,IGMo n 09-17-2024 IgA [Mass/Vol] 142 mg/dL Normal 70-400 [facility] [place] Comment on above: Order Comment: Speci men Type: BLOOD SPECIMEN Ordering Facility: [facility] Address: [address] [place] [address] Performed By: #### 5 763-8 #### [facility] CLIA [id number] [address] [place] [address] [place] IgG [Mass/Vol] 750 mg/dL Normal 700-1600 [facility] [place] Comment on above: Order Comment: Speci men Type: BLOOD SPECIMEN Ordering Facility: [facility] Address: [address] [place] [address] Performed By: #### 5 763-8 #### [facility] CLIA [id number] [address] [place] [address] [place] IgM [Mass/Vol] 23 mg/dL Low 40-230 [facility] [place] Comment on above: Order Comment: Speci men Type: BLOOD SPECIMEN Ordering Facility: [facility] Address: [address] [place] [address] Performed By: #### 5 763-8 #### [facility] CLIA [id number] [address] [place] [address] [place] Iron and Iron binding capaci ty panelon 09-17-2024 Iron [Mass/Vol] 29 ug/dL Low 41-186 [facility] [place] Comment on above: Order Comment: Speci men Type: BLOOD SPECIMENOrdering Facility: [facility] Address: [address] [place] [address] Performed By: #### 5 0190-8, 3084-1, 6-4 ####[facility] [id number] [place] [address] [place] Iron binding capacity [Mass/Vol] 407 ug/dL High 232-386 [facility] [place] Comment on above: Order Comment: Speci men Type: BLOOD SPECIMENOrdering Facility: [facility] Address: [address] [place] [address] Performed By: #### 5 0190-8, 3084-1, 6-4 ####[facility] [id number] [place] [address] [place] Iron/TIBC [Molar ratio] 7.1 % Low 15.0-57.0 [facility] Comment on above: Order Comment: Speci men Type: BLOOD SPECIMENOrdering Facility: [facility] Address: [address] [place] [address] Performed By: #### 5 0190-8, 3084-1, 2276-4 ####[facility] [id number] [place] [address] [place] Nadege-1 extractable nuclear Ab Qn (S)on 09-17-2024 NADEGE 1 ANTIBODY QUAL Negative Normal Negative [facility] Comment on above: Order Comment: Fan meade Type: BLOOD SPECIMEN Ordering Facility: [facility] Address: [address] [place] [address] Result Comment: Anti -NADEGE-1 antibody is used as an aid in diagnosis of polymyositis and dermatomyositis especially with pulmonary involvement. A negative result cannot rule out polymyositis or dermatomyositis. Clinical correlation is required. Test Methodology: Multiplex flow immunoassay. Performed By: #### 5 7021-8 #### [facility] CLIA [id number] [address] [place] [address] [place] KAPPA/BOWEN,FREE,SERon 2023 Immunoglobulin light chains.kappa.free (S) [Mass/Vol] 45.2 mg/L High 3.3-19.4 [facility] [place] Comment on above: Order Comment: Fan meade Type: BLOOD SPECIMEN Ordering Facility: [facility] Address: [address] [place] [address] Result Comment: Rare ly, increased serum free light chains levels may not be detected or accurately quantified due to prozone phenomenon or in high viscosity samples using this immunoturbidimetric assay. Correlation with other laboratory results and clinical findings is recommended. The [place] Free Light Chain was performed using the Binding Site Optilite immunoturbidimetric method. Result obtained with different assay methods or kits cannot be used interchangeably. Performed By: #### 5 763-8 #### [facility] CLIA [id number] [address] [place] [address] [place] Immunoglobulin light chains.kappa/Immunoglob ulin light chains.lambda (S) [Mass ratio] 1.57 Normal 0.26-1.65 [facility] [place] Comment on above: Order Comment: Fan meade Type: BLOOD SPECIMEN Ordering Facility: [facility] Address: [address] [place] [address] Performed By: #### 5 763-8 #### [facility] CLIA [id number] [address] [place] [address] [place] Immunoglobulin light chains.lambda.free [Mass/Vol] 28.8 mg/L High 5.7-26.3 [facility] [place] Comment on above: Order Comment: Specleroy men Type: BLOOD SPECIMEN Ordering Facility: [facility] Address: [address] [place] [address] Result Comment: Rare ly, increased serum free [...] interchangeably. Performed By: #### 5 763-8 #### [facility] CLIA [id number] [address] [place] [address] [place] Methylmalonate SerPl-sCncon 09-17-2024 Methylmalonate [Moles/Vol] 0.29 umol/L Normal <=0.40 [facility] [place] Comment on above: Order Comment: Fan meade Type: BLOOD SPECIMEN Ordering Facility: [facility] Address: [address] [place] [address] Result Comment: This test was developed, and its performance characteristics determined by the [facility] Department of Pathology and Laboratory Medicine. It has not been cleared or approved by the FDA. The [facility] Department of Pathology and Laboratory Medicine is regulated under CLIA as qualified to perform high-complexity testing. This test is used for clinical purposes. It should not be regarded as investigational or for research. Performed By: #### 1 3964-2 #### [facility] CLIA [id number] [address] [place] [address] [place] Nuclear Ab IA Ql (S)on 09-17 RUBEN SCR QUAL Positive Abnormal Negative [facility] [place] Comment on above: Order Comment: Speci men Type: BLOOD SPECIMEN Ordering Facility: [facility] Address: [address] [place] [address] Result Comment: The qualitative antinuclear antibody screen test performed using the following antigens: dsDNA, Chromatin, Ribosomal P, SS-A 60, SS-A 52, SS-B, Sm, SmRNP, BUILDING CONSTRUCTION ESTIMATOR A, BUILDING CONSTRUCTION ESTIMATOR 68, Scl-70, Nadege-1, and Centromere B. Methodology: Multiplex flow immunoassay. Performed By: #### 1 3964-2 #### [facility] CLIA [id number] [address] [place] [address] [place] PATHOLOGIST INTERPRETATION C BC/DIFFon 09-17-2024 Dry Press Operator Helper review Mckay (Unsp spec) [Interp] Reviewed by Dominga Johnson MD Normal [facility] [place] Comment on above: Order Comment: Speci men Type: BLOOD SPECIMENOrdering Facility: [facility] Address: [address] [place] [address] Performed By: #### 1 4196-0, [id number], STFREV, 55981-2 ####[facility] [id number] [place] [address] [place] STAFF REVIEW, CBCDIF Normal [facility] Comment on above: Order Comment: Speci men Type: BLOOD SPECIMENOrdering Facility: [facility] Address: [address] [place] [address] Result Comment: Norm ocytic anemia without polychromasia Thrombocytosis Performed By: #### 1 4196-0, [id number], STFREV, 52012-7 ####[facility] [id number] [place] [address] [place] RBC MORPHOLOGYon 09-17-2024 Platelets Estimate (Bld) [#/Vol] Increased Normal [facility] [place] Comment on above: Order Comment: Speci men Type: BLOOD SPECIMENOrdering Facility: [facility] Address: [address] [place] [address] Performed By: #### 1 4196-0, [id number], STFRZAID, 35728-1 ####[facility] [id number] [place] [address] [place] RBC morphology finding Nom (Bld) Reviewed: unremarkable Normal [facility] [place] Comment on above: Order Comment: Speci men Type: BLOOD SPECIMENOrdering Facility: [facility] Address: [address] [place] [address] Performed By: #### 1 4196-0, [id number], STFRZAID, 46840-7 ####[facility] [id number] [place] [address] [place] RETICULOCYTE COUNTon 024 Reticulocytes (Bld) [#/Vol] 0.078 10*3/uL [facility] #on 09-17-2024 Reticulocytes (Bld) [#/Vol] 0.53276 10*3/uL Normal 0.018-0.100 [facility] [place] Comment on above: Order Comment: Speci men Type: BLOOD SPECIMENOrdering Facility: [facility] Address: [address] [place] [address] Performed By: #### 1 4196-0, [id number], STEVERARDO, 35470-9 ####[facility] [id number] [place] [address] [place] Reticulocytes (Bld) [#/Vol]o n 09-17-2024 Interpretation and review of laboratory results Normal [facility] Reticulocytes/100 RBC (Bld) 2.0 % 0.4 - 2.0 % [facility] Reticulocytes/100 RBC (Bld) 2.0 % Normal 0.4-2.0 [facility] [place] Comment on above: Order Comment: Speci men Type: BLOOD SPECIMENOrdering Facility: [facility] Address: [address] [place] [address] Performed By: #### 1 4196-0, [id number], STFRZAID, 15058-0 ####[facility] [id number] [facility] [address] [place] Ribonucleoprotein extractabl e nuclear Ab Qn (S)on 09-17-2024 ANTI-BUILDING CONSTRUCTION ESTIMATOR QUAL Positive Abnormal Negative [facility] [place] Comment on above: Order Comment: Fan meade Type: BLOOD SPECIMEN Ordering Facility: [facility] Address: [address] [place] [address] Performed By: #### 5 7021-8 #### [facility] CLIA [id number] [address] [place] [address] [place] RIBOSOMAL BUILDING CONSTRUCTION ESTIMATOR QUAL Negative Normal Negative [facility] Comment on above: Order Comment: Fan meade Type: BLOOD SPECIMEN Ordering Facility: [facility] Address: [address] [place] [address] Result Comment: Anti -Ribosomal RNA (Ribosomal P) antibody is used as an aid in diagnosis of systemic autoimmune diseases especially systemic lupus erythematosus and mixed connective tissue disease. Cross-reactivity with Anti-bang antibody is not uncommon. Clinical correlation is required. Test Methodology: Multiplex flow immunoassay. Performed By: #### 1 3964-2 #### [facility] CLIA [id number] [address] [place] [address] [place] SCL-70 extractable nuclear I gG IA Qn (S)on 09-17-2024 SCLERODERMA AB QUAL Negative Normal Negative [facility] Comment on above: Order Comment: Fan meade Type: BLOOD SPECIMEN Ordering Facility: [facility] Address: [address] [place] [address] Performed By: #### 5 7021-8 #### [facility] CLIA [id number] [address] [place] [address] [place] SCLERODERMA IGG AB <0.2 Normal <1.0 [facility] Comment on above: Order Comment: Fan meade Type: BLOOD SPECIMEN Ordering Facility: [facility] Address: [address] [place] [address] Result Comment: Scl- 70/Scleroderma antibody test is used as an aid in diagnosis of systemic sclerosis especially the diffuse cutaneous form. A negative result cannot rule out systemic sclerosis. The final interpretation should consider clinical picture and other test results such as anti-centromere antibody. Test Methodology: Multiplex flow immunoassay. Performed By: #### 5 7021-8 #### [facility] CLIA [id number] [address] [place] [address] [place] Sjogrens syndrome-A extracta ble nuclear Ab Qn (S)on 09-17-2024 SSA ANTIBODY QUAL Negative Normal Negative [facility] Comment on above: Order Comment: Speci men Type: BLOOD SPECIMEN Ordering Facility: [facility] Address: [address] [place] [address] Performed By: #### 5 7021-8 #### [facility] CLIA [id number] [address] [place] [address] [place] Sjogrens syndrome-B extracta ble nuclear Ab Qn (S)on 09-17-2024 SSB ANTIBODY QUAL Negative Normal Negative [facility] Comment on above: Order Comment: Speci halina Type: BLOOD SPECIMEN Ordering Facility: [facility] Address: [address] [place] [address] Performed By: #### 1 3964-2 #### [facility] CLIA [id number] [address] [place] [address] [place] Bang extractable nuclear Ig G Qn (S)on 09-17-2024 SM ANTIBODY QUAL Negative Normal Negative [facility] Comment on above: Order Comment: Specleroy meade Type: BLOOD SPECIMEN Ordering Facility: [facility] Address: [address] [place] [address] Result Comment: Anti -Sm (Bang) antibody is used as an aid in diagnosis of systemic lupus erythematosus and its presence is associated with renal disease. A negative result cannot rule out systemic lupus erythematosus. Clinical correlation is required. Test Methodology: Multiplex flow immunoassay. Performed By: #### 5 7021-8 #### [facility] CLIA [id number] [address] [place] [address] [place] Urate SerPl-mCncon 4 Urate [Mass/Vol] 5.6 mg/dL Normal 2.5-6.6 [facility] Comment on above: Order Comment: Speci men Type: BLOOD SPECIMENOrdering Facility: [facility] Address: [address] [place] [address] Performed By: #### 5 0190-8, 3084-1, 2276-4 ####[facility] [id number] [address] [place] Vit B12 [facility] Cobalamin (Vitamin B12) [Mass/Vol] 433 pg/mL Normal 232-1245 [facility] Comment on above: Order Comment: Speci men Type: BLOOD SPECIMEN Ordering Facility: [facility] Address: [address] [place] [address] Performed By: #### 2 132-9, 2284-8 #### [facility] CLIA [id number] [address] [place] [address] [place] XR ANKLE 3V AP/LAT/OBL [...] Degenerative changes, calcaneal enthesophytes, and pes planus. Learning And Development Administrator: PHU Transcribe Date/Time: Sep 18 2024 12:20P Dictated by : GERTRUDIS MONCADA MD This examination was interpreted and the report reviewed and electronically signed by: GERTRUDIS MONCADA MD on Sep 18 2024 12:22PM EST [id number] Normal [facility] XR Ankle - right AP and Late ral and obliqueon 09-17-2024 Radiology Study observation (narrative) [facility] Zinc SerPl-mCncon 09-17-2024 Zinc [Mass/Vol] 55 ug/dL Low 60-120 [facility] Comment on above: Order Comment: Fan meade Type: BLOOD SPECIMEN Ordering Facility: [facility] Address: [address] [place] [address] Result Comment: This test was developed, and its performance characteristics determined by the [facility] Department of Pathology and Laboratory Medicine. It has not been cleared or approved by the FDA. The [facility] Department of Pathology and Laboratory Medicine is regulated under CLIA as qualified to perform high-complexity testing. This test is used for clinical purposes. It should not be regarded as investigational or for research. Performed By: #### 5 763-8 #### [facility] CLIA [id number] [address] [place] [address] [place] cCP IgG SerPl-aCncon 024 Cyclic citrullinated peptide IgG Qn <15 Normal <20 [facility] Comment on above: Order Comment: Fan meade Type: BLOOD SPECIMEN Ordering Facility: [facility] Address: [address] [place] [address] Performed By: #### 5 763-8 #### [facility] CLIA [id number] [address] [place] [address] [place] CNOVon 09-13-2024 CNOV Office Visit ([facility] ) YUSUF MEDINA ([id number]) 1935 F [place] Date Time Provider Department 09/13/24 10:00 AM MIGDALIA CRAMER [facility] During your visit today, we recorded [...] changes, you (more content not included)... Normal [facility] Arti 08-21-2024 [facility] Telephone ([facility]) YUSUF MEDINA ([id number]) 1935 [facility] Date Time Provider Department 08/21/24 MIGDALIA CRAMER [facility] During your visit today, we recorded the following information about you: Perla Cramer 08/21/2024 10:12 AM Signed Patients sister in law called and wanted to discuss the results of the labs. Willie Kaur APRN.DRAKE 08/21/2024 4:19 PM Signed Please let her [...] this patient by: CAREGIVER José Miguel Swanson [facility] Problem List As Of Date [...] 12/07/2017 Cervic (more content not included)... Normal [facility] ALBUMIN/CREATININE RATIO, UR INEon 08-14-2024 Albumin DL <= 20 mg/L (U) [Mass/Vol] 387.7 mg/L Normal [facility] Comment on above: Order Comment: Speci men Type: URINE SPECIMENOrdering Facility: [facility] Address: [address] [place] [address] Performed By: #### U ACR, 2888-6 ####[facility] [id number] [place] [address] [place] Albumin/Creatinine (U) [Mass ratio] 483 mg/g High <30 [facility] Comment on above: Order Comment: Speci men Type: URINE SPECIMENOrdering Facility: [facility] Address: [address] [place] [address] Result Comment: Adul t Male and Female Nephrotic Criteria: <30 mg/g is considered normal to mildly increased 30-300 mg/g is considered moderately increased >300 mg/g is considered severely increased KDIGO. (2013). KDIGO 2012 Clinical Practice Guideline for the Evaluation and Management of Chronic Kidney Disease. Official Journal of the International Society of Nephrology, 3(1), 1-150. Performed By: #### U ACR, 2888-6 ####[facility] [id number] [place] [address] [place] Creatinine (U) [Mass/Vol] 80.2 mg/dL Normal 20.0-300.0 [facility] Comment on above: Order Comment: Speci men Type: URINE SPECIMENOrdering Facility: [facility] Address: [address] [place] [address] Performed By: #### U ACR, 2888-6 ####[facility] [id number] [place] [address] [place] Bacteria Ur Culton [...] technique or straight catheterization for???urine???collecti on. Normal [facility] Comment on above: Performed By: #### 6 30-4 ####[facility] [id number] [place] [address] [place] Basic metabolic 2000 panelon 08-14-2024 Anion gap [Moles/Vol] 13 mmol/L Normal 8-15 [facility] Comment on above: Order Comment: Speci men Type: BLOOD SPECIMEN Ordering Facility: [facility] Address: [address] [place] [address] Performed By: #### 1 3964-2 #### [facility] CLIA [id number] [address] [place] [address] [place] Calcium [Mass/Vol] 9.9 mg/dL Normal 8.5-10.2 [facility] Comment on above: Order Comment: Speci men Type: BLOOD SPECIMEN Ordering Facility: [facility] Address: [address] [place] [address] Performed By: #### 1 3964-2 #### [facility] CLIA [id number] [address] [place] [address] [place] Chloride [Moles/Vol] 96 mmol/L Low 98-[address] [facility] Comment on above: Order Comment: Speci men Type: BLOOD SPECIMEN Ordering Facility: [facility] Address: [address] [place] [address] Performed By: #### 1 3964-2 #### [facility] CLIA [id number] [address] [place] [address] [place] CO2 [Moles/Vol] 24 mmol/L Normal 22-30 [facility] Comment on above: Order Comment: Speci men Type: BLOOD SPECIMEN Ordering Facility: [facility] Address: [address] [place] [address] Performed By: #### 1 3964-2 #### [facility] CLIA [id number] [address] [place] [address] [place] Creatinine [Mass/Vol] 0.89 mg/dL Normal 0.58-0.96 [facility] Comment on above: Order Comment: Speci men Type: BLOOD SPECIMEN Ordering Facility: [facility] Address: [address] [place] [address] Performed By: #### 1 3964-2 #### [facility] CLIA [id number] [address] [place] [address] [place] Creatinine and Glomerular filtration rate.predicted panel (S/P/Bld) 62 mL/min/1.73m??? Normal >=60 [facility] Comment on above: Order Comment: Speci men Type: BLOOD SPECIMEN Ordering Facility: [facility] Address: [address] [place] [address] Result Comment: Hilda mated Glomerular Filtration Rate [...] GFR. Performed By: #### 1 3964-2 #### [facility] CLIA [id number] [address] [place] [address] [place] Glucose [Mass/Vol] 245 mg/dL High 74-99 [facility] Comment on above: Order Comment: Fan meade Type: BLOOD SPECIMEN Ordering Facility: [facility] Address: [address] [place] [address] Result Comment: The [place] Diabetes Association (ADA) provides guidance for cutoff [...] Standards of Medical Care in Diabetes 2016, [place] [employer]. Diabetes Care. 2016.39(Suppl 1). Performed By: #### 1 3964-2 #### [facility] CLIA [id number] [address] [place] [address] [place] Potassium [Moles/Vol] 4.9 mmol/L Normal 3.7-5.1 [facility] Comment on above: Order Comment: Fan meade Type: BLOOD SPECIMEN Ordering Facility: [facility] Address: [address] [place] [address] Performed By: #### 1 3964-2 #### [facility] CLIA [id number] [address] [place] [address] [place] Sodium [Moles/Vol] 133 mmol/L Low 136-144 [facility] Comment on above: Order Comment: Fan meade Type: BLOOD SPECIMEN Ordering Facility: [facility] Address: [address] [place] [address] Performed By: #### 1 3964-2 #### [facility] CLIA [id number] [address] [place] [address] [place] Urea nitrogen [Mass/Vol] 29 mg/dL High 7-21 [facility] Comment on above: Order Comment: Speci men Type: BLOOD SPECIMEN Ordering Facility: [facility] Address: [address] [place] [address] Performed By: #### 1 3964-2 #### [facility] CLIA [id number] [address] [place] [address] [place] CBC W Ordered Manual Differe ntial panel (Bld)on 08-14-2024 Basophils (Bld) [#/Vol] 0.05 10*3/uL Normal <0.11 [facility] Comment on above: Order Comment: Speci men Type: BLOOD SPECIMENOrdering Facility: [facility] Address: [address] [place] [address] Performed By: #### 5 7782-5, 4537-7, STFREV ####[facility] [id number] [place] [address] [place] Basophils/100 WBC (Bld) 0.4 % Normal [facility] Comment on above: Order Comment: Speci men Type: BLOOD SPECIMENOrdering Facility: [facility] Address: [address] [place] [address] Performed By: #### 5 7782-5, 4537-7, STFREV ####[facility] [id number] [place] [address] [place] Differential cell count method Nom (Bld) Auto Normal [facility] Comment on above: Order Comment: Speci men Type: BLOOD SPECIMENOrdering Facility: [facility] Address: [address] [place] [address] Performed By: #### 5 7782-5, 4537-7, STFREV ####[facility] [id number] [place] [address] [place] Eosinophils (Bld) [#/Vol] 0.04 10*3/uL Normal <0.46 [facility] Comment on above: Order Comment: Speci men Type: BLOOD SPECIMENOrdering Facility: [facility] Address: [address] [place] [address] Performed By: #### 5 7782-5, 4537-7, STFREV ####[facility] [id number] [place] [address] [place] Eosinophils/100 WBC (Bld) 0.3 % Normal [facility] Comment on above: Order Comment: Speci men Type: BLOOD SPECIMENOrdering Facility: [facility] Address: [address] [place] [address] Performed By: #### 5 7782-5, 4537-7, STFREV ####[facility] [id number] [place] [address] [place] Erythrocyte distribution width (RBC) [Ratio] 14.9 % Normal 11.5-15.0 [facility] Comment on above: Order Comment: Speci men Type: BLOOD SPECIMENOrdering Facility: [facility] Address: [address] [place] [address] Performed By: #### 5 7782-5, 4537-7, STFREV ####[facility] [id number] [place] [address] [place] Hematocrit (Bld) [Volume fraction] 35.2 % Low 36.0-46.0 [facility] Comment on above: Order Comment: Speci men Type: BLOOD SPECIMENOrdering Facility: [facility] Address: [address] [place] [address] Performed By: #### 5 7782-5, 4537-7, STFREV ####[facility] [id number] [place] [address] [place] Hemoglobin (Bld) [Mass/Vol] 11.2 g/dL Low 11.5-15.5 [facility] Comment on above: Order Comment: Speci men Type: BLOOD SPECIMENOrdering Facility: [facility] Address: [address] [place] [address] Performed By: #### 5 7782-5, 4537-7, STFREV ####[facility] [id number] [place] [address] [place] Immature granulocytes (Bld) [#/Vol] 0.06 10*3/uL Normal <0.10 [facility] Comment on above: Order Comment: Speci men Type: BLOOD SPECIMENOrdering Facility: [facility] Address: [address] [place] [address] Performed By: #### 5 7782-5, 4537-7, STFREV ####[facility] [id number] [place] [address] [place] Immature granulocytes/100 WBC (Bld) 0.5 % Normal [facility] Comment on above: Order Comment: Speci men Type: BLOOD SPECIMENOrdering Facility: [facility] Address: [address] [place] [address] Performed By: #### 5 7782-5, 4537-7, STFREV ####[facility] [id number] [place] [address] [place] Lymphocytes (Bld) [#/Vol] 1.40 10*3/uL Normal 1.00-4.00 [facility] Comment on above: Order Comment: Speci men Type: BLOOD SPECIMENOrdering Facility: [facility] Address: [address] [place] [address] Performed By: #### 5 7782-5, 4537-7, STFREV ####[facility] [id number] [place] [address] [place] Lymphocytes/100 WBC (Bld) 11.3 % Normal [facility] Comment on above: Order Comment: Speci men Type: BLOOD SPECIMENOrdering Facility: [facility] Address: [address] [place] [address] Performed By: #### 5 7782-5, 4537-7, STFREV ####[facility] [id number] [place] [address] [place] MCH (RBC) [Entitic mass] 28.4 pg Normal 26.0-34.0 [facility] Comment on above: Order Comment: Speci men Type: BLOOD SPECIMENOrdering Facility: [facility] Address: [address] [place] [address] Performed By: #### 5 7782-5, 4537-7, STFREV ####[facility] [id number] [place] [address] [place] MCHC (RBC) [Mass/Vol] 31.8 g/dL Normal 30.5-36.0 [facility] Comment on above: Order Comment: Speci men Type: BLOOD SPECIMENOrdering Facility: [facility] Address: [address] [place] [address] Performed By: #### 5 7782-5, 4537-7, STFREV ####[facility] [id number] [place] [address] [place] MCV (RBC) [Entitic vol] 89.3 fL Normal 80.0-100.0 [facility] Comment on above: Order Comment: Speci men Type: BLOOD SPECIMENOrdering Facility: [facility] Address: [address] [place] [address] Performed By: #### 5 7782-5, 4537-7, STFREV ####[facility] [id number] [place] [address] [place] Monocytes (Bld) [#/Vol] 0.83 10*3/uL Normal <0.87 [facility] Comment on above: Order Comment: Speci men Type: BLOOD SPECIMENOrdering Facility: [facility] Address: [address] [place] [address] Performed By: #### 5 7782-5, 4537-7, STFREV ####[facility] [id number] [place] [address] [place] Monocytes/100 WBC (Bld) 6.7 % Normal [facility] Comment on above: Order Comment: Speci men Type: BLOOD SPECIMENOrdering Facility: [facility] Address: [address] [place] [address] Performed By: #### 5 7782-5, 453-7, STFREV ####[facility] [id number] [place] [address] [place] Neutrophils (Bld) [#/Vol] 10.03 10*3/uL High 1.45-7.50 [facility] Comment on above: Order Comment: Speci men Type: BLOOD SPECIMENOrdering Facility: [facility] Address: [address] [place] [address] Performed By: #### 5 7782-5, 4536-7, STFREV ####[facility] [id number] [place] [address] [place] Neutrophils/100 WBC (Bld) 80.8 % Normal [facility] Comment on above: Order Comment: Speci men Type: BLOOD SPECIMENOrdering Facility: [facility] Address: [address] [place] [address] Performed By: #### 5 7782-5, 7-7, STFREV ####[facility] [id number] [place] [address] [place] Nucleated RBC (Bld) [#/Vol] 10*3/uL Normal <0.01 [facility] Comment on above: Order Comment: Speci men Type: BLOOD SPECIMENOrdering Facility: [facility] Address: [address] [place] [address] Performed By: #### 5 7782-5, 4537-7, STFRZAID ####[facility] [id number] [place] [id number] [place] Nucleated RBC/100 WBC (Bld) [Ratio] 0.0 /100 WBC Normal [facility] Comment on above: Order Comment: Speci men Type: BLOOD SPECIMENOrdering Facility: [facility] Address: [address] [place] [address] Performed By: #### 5 7782-5, 4537-7, STFRZAID ####[facility] [id number] [place] [address] [place] Platelet mean volume (Bld) [Entitic vol] 10.2 fL Normal 9.0-12.7 [facility] Comment on above: Order Comment: Speci men Type: BLOOD SPECIMENOrdering Facility: [facility] Address: [address] [place] [address] Performed By: #### 5 7782-5, 4537-7, STFRZAID ####[facility] [id number] [place] [address] [place] Platelets (Bld) [#/Vol] 330 10*3/uL Normal 150-400 [facility] Comment on above: Order Comment: Speci men Type: BLOOD SPECIMENOrdering Facility: [facility] Address: [address] [place] [address] Performed By: #### 5 7782-5, 4537-7, STFREV ####[facility] [id number] [place] [address] [place] RBC (Bld) [#/Vol] 3.94 10*6/uL Normal 3.90-5.20 [facility] Comment on above: Order Comment: Speci men Type: BLOOD SPECIMENOrdering Facility: [facility] Address: [facility] [place] [id number] Performed By: #### 5 7782-5, 4537-7, STEVERARDO ####[facility] [id number] [address] [address] [place] WBC (Bld) [#/Vol] 12.41 10*3/uL High 3.70-11.[address] [facility] Comment on above: Order Comment: Speci men Type: BLOOD SPECIMENOrdering Facility: [facility] Address: [address] [place] [id number] Performed By: #### 5 7782-5, 4537-7, STEVERARDO ####[facility] [id number] [place] [id number] [place] CNOVon 08-14-2024 CNOV Office Visit ([facility] ) YUSUF MEDINA ([id number]) 1935 F [place] Date Time Provider Department 08/14/24 10:40 AM MIGDALIA CRAMER [facility] During your visit today, we recorded [...] COMBINE WITH DICLOFENAC GEL blood sugar diagnostic (Idenix PharmaceuticalsTOUCH ULTRA TEST) test strip Test blood sugar [...] no acute (more content not included)... Normal [facility] CRP SerPl-ncon 08-14-2024 CRP [Mass/Vol] 7.8 mg/dL High <0.9 [facility] Comment on above: Order Comment: Speci men Type: BLOOD SPECIMEN Ordering Facility: [facility] Address: [address] [place] [address] [place] [address] Performed By: #### 1 3964-2 #### [facility] CLIA [id number] [address] [place] [address] [place] ESR Westergren method (Bld) [Velocity]on 08-14-2024 ESR (Bld) [Velocity] 40 mm/h High 0-[facility] Comment on above: Order Comment: Speci men Type: BLOOD SPECIMENOrdering Facility: [facility] Address: [address] [place] [address] Performed By: #### 5 7782-5, 4537-7, RADHA ####[facility] [id number] [address] [place] [facility] HbA1c (Bld)on 08-14-2024 Average glucose Estimated from glycated hemoglobin (Bld) [Mass/Vol] 197 mg/dL Normal [facility] Comment on above: Order Comment: Katei men Type: BLOOD SPECIMENOrdering Facility: [facility] Address: [address] [place] [address] Result Comment: eAG: (Estimated average glucose) is a calculated value from HgbA1c and is outbound call center representative of the average blood glucose level in the last 2-3 month period. Performed By: #### 5 5454-3 ####[facility] [id number] [address] [place] [facility] HbA1c (Bld) [Mass fraction] 8.5 % High 4.3-5.6 [facility] Comment on above: Order Comment: [facility] Type: BLOOD SPECIMENOrdering Facility: [facility] [facility] Address: [address] [place] [address] Result Comment: [place] [employer] guidelines indicate that patients with HgbA1c in the range 5.7-6.4% are at increased risk for development of diabetes, and intervention by lifestyle modification may be beneficial. HgbA1c greater or equal to 6.5% is considered diagnostic of diabetes. Performed By: #### 5 5454-3 ####[facility] [id number] [place] [address] [place] PATHOLOGIST INTERPRETATION C BC/DIFFon 08-14-2024 Dry Press Operator Helper review Mckay (Unsp spec) [Interp] No review performed. Normal [facility] Comment on above: Order Comment: Speci men Type: BLOOD SPECIMENOrdering Facility: [facility] Address: [address] [place] [address] Performed By: #### 5 7782-5, 4537-7, STEVERARDO ####[facility] [id number] [place] [address] [place] STAFF REVIEW, CBCDIF Normal [facility] Comment on above: Order Comment: Speci men Type: BLOOD SPECIMENOrdering Facility: [facility] Address: [address] [place] [address] Result Comment: The Pathologist Interpretation on this sample was cancelled because the hematology analyzer did not flag any parameters as requiring manual review. If there is a specific clinical concern for which you would like a pathologist to review the blood smear, please call Lab Client Services within 28 days. Performed By: #### 5 7782-5, 4537-7, STFRZAID ####[facility] [id number] [place] [address] [place] PROTEIN ELECTROPHORESIS SERU M (P)on 08-14-2024 Albumin [Mass/Vol] 3.80 g/dL Normal 3.43-5.41 [facility] Comment on above: Order Comment: Speci men Type: BLOOD SPECIMEN Ordering Facility: [facility] Address: [address] [place] [address] Performed By: #### 5 763-8 #### [facility] CLIA [id number] [address] [place] [address] [place] Alpha 1 globulin Elph [Mass/Vol] 0.46 g/dL High 0.18-0.43 [facility] Comment on above: Order Comment: Speci men Type: BLOOD SPECIMEN Ordering Facility: [facility] Address: [address] [place] [address] Performed By: #### 5 763-8 #### [facility] CLIA [id number] [address] [place] [address] [place] Alpha 2 globulin Elph [Mass/Vol] 1.03 g/dL High 0.42-0.98 [facility] Comment on above: Order Comment: Speci men Type: BLOOD SPECIMEN Ordering Facility: [facility] Address: [address] [place] [address] Performed By: #### 5 763-8 #### [facility] CLIA [id number] [address] [place] [address] [place] Beta globulin Elph [Mass/Vol] 0.84 g/dL Normal 0.61-1.17 [facility] Comment on above: Order Comment: Speci men Type: BLOOD SPECIMEN Ordering Facility: [facility] Address: [address] [place] [address] Performed By: #### 5 763-8 #### [facility] CLIA [id number] [address] [place] [address] [place] Gamma globulin Elph [Mass/Vol] 0.58 g/dL Normal 0.53-1.51 [facility] Comment on above: Order Comment: Katei men Type: BLOOD SPECIMEN Ordering Facility: [facility] Address: [address] [place] [address] Performed By: #### 5 763-8 #### [facility] CLIA [id number] [address] [place] [address] [place] INTERPRETATION COMMENT FOR PROTEIN ELECTROPHORESIS The atypical region is relatively poorly defined and may represent an unusual presentation of polyclonal immunoglobulins, but cannot rule out the presence of a low level M protein. If clinically indicated, monoclonal protein analysis and serum free light chain analysis are suggested to evaluate further for monoclonal gammopathy. Normal [facility] Comment on above: Order Comment: Katei men Type: BLOOD SPECIMEN Ordering Facility: [facility] Address: [address] [place] [address] Performed By: #### 5 763-8 #### [facility] CLIA [id number] [address] [place] [address] [place] M-PROTEIN LOCATION Normal [facility] Comment on above: Order Comment: Speci men Type: BLOOD SPECIMEN Ordering Facility: [facility] Address: [address] [place] [address] Result Comment: Not Applicable. Performed By: #### 5 763-8 #### [facility] CLIA [id number] [address] [place] [address] [place] Protein Fractions [Interp] An atypical region of restricted mobility is identified on protein electrophoresis. Abnormal No definitive M protein is identified on protein electrophore sis. [facility] Comment on above: Order Comment: Speci men Type: BLOOD SPECIMEN Ordering Facility: [facility] Address: [address] [place] [address] Performed By: #### 5 763-8 #### [facility] CLIA [id number] [address] [place] [address] [place] Protein.monoclonal Elph [Mass/Vol] 0.00 g/dL Normal <=0.00 [facility] Comment on above: Order Comment: Speci men Type: BLOOD SPECIMEN Ordering Facility: [facility] Address: [address] [place] [address] Performed By: #### 5 763-8 #### [facility] CLIA [id number] [address] [place], [place] [id number] [place] SPE STAFF REVIEW Reviewed by Tanisha Sanchez MD Normal [facility] Comment on above: Order Comment: Speci men Type: BLOOD SPECIMEN Ordering Facility: [facility] Address: [address] [place] [address] Performed By: #### 5 763-8 #### [facility] CLIA [id number] [address] [place], [place] [address] [place] Prot SerPl-mCncon 08-14-2024 Protein [Mass/Vol] 6.7 g/dL Normal 6.3-8.0 [facility] Comment on above: Order Comment: Speci men Type: BLOOD SPECIMEN Ordering Facility: [facility] Address: [address] [place] [address] Performed By: #### 1 3964-2 #### [facility] CLIA [id number] [address] [place] [address] [place] Prot Ur-mCncon 08-14-2024 Protein (U) [Mass/Vol] 78 mg/dL High 0-20 [facility] Comment on above: Order Comment: Speci men Type: URINE SPECIMENOrdering Facility: [facility] Address: [address] [place] [address] Performed By: #### U ACR, 2888-6 ####[facility] [id number] [place] [address] [place] TSH SerPl-aCncon 08-14-2024 TSH Qn 1.120 m[IU]/L Normal 0.270-4.200 [facility] Comment on above: Order Comment: Speci men Type: BLOOD SPECIMEN Ordering Facility: [facility] Address: [address] [place] [address] Performed By: #### 1 3964-2 #### [facility] CLIA [id number] [address] [place] [address] [place] URINALYSIS, DIPSTICK ONLYon 08-14-2024 Bilirubin Ql (U) Negative Normal Negative [facility] Comment on above: Order Comment: Speci men Type: BLOOD SPECIMEN Ordering Facility: [facility] Address: [address] [place] [address] Performed By: #### 2 132-9, 2284-8 #### [facility] CLIA [id number] [address] [place] [address] [place] Clarity (Unsp spec) Clear Normal Clear [facility] Comment on above: Order Comment: Speci men Type: BLOOD SPECIMEN Ordering Facility: [facility] Address: [address] [place] [id number] Performed By: #### 2 132-9, 8 #### [facility] CLIA [id number] [address] [place] [address] [place] Color (U) Yellow Normal Yellow [facility] Comment on above: Order Comment: Speci men Type: BLOOD SPECIMEN Ordering Facility: [facility] Address: [address] [place] [address] Performed By: #### 2 132-9, 8 #### [facility] CLIA [id number] [address] [place] [address] [place] Glucose Test strip (U) [Mass/Vol] 1+ Abnormal Negative [facility] Comment on above: Order Comment: Speci men Type: BLOOD SPECIMEN Ordering Facility: [facility] Address: [address] [place] [address] Performed By: #### 2 132-9, 8 #### [facility] CLIA [id number] [address] [place] [address] [place] Hemoglobin Ql (U) Negative Normal Negative [facility] Comment on above: Order Comment: Speci men Type: BLOOD SPECIMEN Ordering Facility: [facility] Address: [address] [place] [address] Performed By: #### 2 132-9, 8 #### [facility] CLIA [id number] [address] [place] [address] [place] Ketones Ql (U) Negative Normal Negative [facility] Comment on above: Order Comment: Speci men Type: BLOOD SPECIMEN Ordering Facility: [facility] Address: [address] [place], [place] [address] Performed By: #### 2 132-9, 8 #### [facility] CLIA [id number] [address] [place] [address] [place] Leukocyte esterase Test strip Ql (U) Negative Normal Negative [facility] Comment on above: Order Comment: Speci men Type: BLOOD SPECIMEN Ordering Facility: [facility] Address: [address] [place] [address] Performed By: #### 2 132-9, 8 #### [facility] CLIA [id number] [address] [place] [address] [place] Nitrite Ql (U) Negative Normal Negative [facility] Comment on above: Order Comment: Speci men Type: BLOOD SPECIMEN Ordering Facility: [facility] Address: [address] [place] [address] Performed By: #### 2 132-9, 2284-06 #### [facility] CLIA [id number] [address] [place] [address] [place] pH (U) 6.5 [pH] Normal <8.5 [facility] Comment on above: Order Comment: Speci men Type: BLOOD SPECIMEN Ordering Facility: [facility] Address: [address] [place] [address] Performed By: #### 2 132-9, 2284-06 #### [facility] CLIA [id number] [address] [place] [address] [place] Protein (U) [Mass/Vol] 2+ Abnormal Negative [facility] Comment on above: Order Comment: Speci men Type: BLOOD SPECIMEN Ordering Facility: [facility] Address: [address] [place] [address] Performed By: #### 2 132-9, 2284-06 #### [facility] CLIA [id number] [address] [place] [address] [place] Specific gravity (U) [Rel density] 1.020 Normal 1.005-1.030 [facility] Comment on above: Order Comment: Speci men Type: BLOOD SPECIMEN Ordering Facility: [facility] Address: [address] [place] [address] Performed By: #### 2 132-9, 2284-8 #### [facility] CLIA [id number] [address] [place] [address] [place] Urobilinogen Ql (U) 1.0 EU/dL Normal 0.2-1.0 EU/dL [facility] Comment on above: Order Comment: Speci men Type: BLOOD SPECIMEN Ordering Facility: [facility] Address: [address] [place] [address] Performed By: #### 2 132-9, 2284-8 #### [facility] CLIA [id number] [address] [place] [address] [place] URINE PROTEIN ELECTROPHORESI S RANDOM (P)on 08-14-2024 Albumin Elph (U) [Mass fraction] 69.11 % Normal [facility] Comment on above: Order Comment: Speci men Type: URINE SPECIMENOrdering Facility: [facility] Address: [address] [place] [address] Performed By: #### L [id number] ####[facility] [id number] [place] [address] [place] Alpha 1 globulin Elph (U) [Mass fraction] 7.87 % Normal [facility] Comment on above: Order Comment: Speci men Type: URINE SPECIMENOrdering Facility: [facility] Address: [address] [place] [address] Performed By: #### L [id number] ####[facility] [id number] [place] [address] [place] Alpha 2 globulin Elph (U) [Mass fraction] 6.40 % Normal [facility] Comment on above: Order Comment: Speci men Type: URINE SPECIMENOrdering Facility: [facility] Address: [address] [place] [address] Performed By: #### L [id number] ####[facility] [id number] [place] [address] [place] Beta globulin Elph (U) [Mass fraction] 11.20 % Normal [facility] Comment on above: Order Comment: Speci men Type: URINE SPECIMENOrdering Facility: [facility] Address: [address] [place] [address] Performed By: #### L [id number] ####[facility] [id number] [place] [address] [place] Gamma globulin Elph (U) [Mass fraction] 5.42 % Normal [facility] Comment on above: Order Comment: Speci men Type: URINE SPECIMENOrdering Facility: [facility] Address: [address] [place] [address] Performed By: #### L [id number] ####[facility] [id number] [address] [facility] Protein Fractions Elph Cmkay (U) [Interp] No definitive M protein is identified on protein electrophoresis. Normal No definitive M protein is identified on protein electrophore sis. [facility] Comment on above: Order Comment: Speci men Type: URINE SPECIMENOrdering Facility: [facility] Address: [address] [place] [address] Performed By: #### L [id number] ####[facility] [id number] [address] [place] STAFF REVIEW (URINE ELECTRO) Reviewed by Brianne Mosley M.D., Ph.D Normal [facility] Comment on above: Order Comment: Speci men Type: URINE SPECIMENOrdering Facility: [facility] Address: [address] [place] [address] Performed By: #### L [id number] ####[facility] [id number] [address] [place] ALLIED HEALTHon 08-13-2024 ALLIED HEALTH HNO ID: [id number] Author: TYESHA CHENEY RT(R) Service: Radiology Author Type: Technologist Type: [...] PATIENT PRESENTS WITH AN IMPLANTABLE OR ATTACHED YARD CONDUCTOR: No RADIOLOGY DEPARTMENT: General X-ray: Exam(s) Completed: Chest X-Ray PERIPHERAL IV DATA: Not applicable SIGNED BY: RT Carolina(R) August 13, 2024 3:49 PM Normal [facility] CBC W Auto Differential pane l (Bld)on 08-13-2024 Basophils (Bld) [#/Vol] 0.03 10*3/uL Normal <0.11 [facility] Comment on above: Order Comment: Specleroy meade Type: BLOOD SPECIMEN Ordering Facility: [facility] Address: [address] [place] [address] Performed By: #### 5 7021-8 #### [facility] CLIA [id number] [address] [place] [address] [place] Basophils/100 WBC (Bld) 0.2 % Normal [facility] Comment on above: Order Comment: Speci men Type: BLOOD SPECIMEN Ordering Facility: [facility] Address: [address] [place] [address] Performed By: #### 5 7021-8 #### [facility] CLIA [id number] [address] [place] [address] [place] Differential cell count method Nom (Bld) Auto Normal [facility] Comment on above: Order Comment: Speci men Type: BLOOD SPECIMEN Ordering Facility: [facility] Address: [address] [place] [address] Performed By: #### 5 7021-8 #### [facility] CLIA [id number] [address] [place] [address] [place] Eosinophils (Bld) [#/Vol] 10*3/uL Normal <0.46 [facility] Comment on above: Order Comment: Speci men Type: BLOOD SPECIMEN Ordering Facility: [facility] Address: [address] [place] [address] Performed By: #### 5 7021-8 #### [facility] CLIA [id number] [address] [place] [address] [place] Eosinophils/100 WBC (Bld) 0.1 % Normal [facility] Comment on above: Order Comment: Speci men Type: BLOOD SPECIMEN Ordering Facility: [facility] Address: [address] [place] [address] Performed By: #### 5 7021-8 #### [facility] CLIA [id number] [address] [place] [address] [place] Erythrocyte distribution width (RBC) [Ratio] 14.6 % Normal 11.5-15.0 [facility] Comment on above: Order Comment: Speci men Type: BLOOD SPECIMEN Ordering Facility: [facility] Address: [address] [place] [address] Performed By: #### 5 7021-8 #### [facility] CLIA [id number] [address] [place] [address] [place] Hematocrit (Bld) [Volume fraction] 33.5 % Low 36.0-46.0 [facility] Comment on above: Order Comment: Speci men Type: BLOOD SPECIMEN Ordering Facility: [facility] Address: [address] [place] [address] Performed By: #### 5 7021-8 #### [facility] CLIA [id number] [address] [place] [address] [place] Hemoglobin (Bld) [Mass/Vol] 10.9 g/dL Low 11.5-15.5 [facility] Comment on above: Order Comment: Speci men Type: BLOOD SPECIMEN Ordering Facility: [facility] Address: [address] [place] [address] Performed By: #### 5 7021-8 #### [facility] CLIA [id number] [place] [address] [place] Immature granulocytes (Bld) [#/Vol] 0.09 10*3/uL Normal <0.10 [facility] Comment on above: Order Comment: Speci men Type: BLOOD SPECIMEN Ordering Facility: [facility] Address: [address] [place] [address] Performed By: #### 5 7021-8 #### [facility] CLIA [id number] [address] [place] [address] [place] Immature granulocytes/100 WBC (Bld) 0.5 % Normal [facility] Comment on above: Order Comment: Speci men Type: BLOOD SPECIMEN Ordering Facility: [facility] Address: [address] [place] [address] Performed By: #### 5 7021-8 #### [facility] CLIA [id number] [address] [place] [address] [place] Lymphocytes (Bld) [#/Vol] 0.91 10*3/uL Low 1.00-4.00 [facility] Comment on above: Order Comment: Speci men Type: BLOOD SPECIMEN Ordering Facility: [facility] Address: [address] [place] [address] Performed By: #### 5 7021-8 #### [facility] CLIA [id number] [address] [place] [address] [place] Lymphocytes/100 WBC (Bld) 5.3 % Normal [facility] Comment on above: Order Comment: Speci men Type: BLOOD SPECIMEN Ordering Facility: [facility] Address: [address] [place] [address] Performed By: #### 5 7021-8 #### [facility] CLIA [id number] [facility] [place] [address] [place] [facility] MCH (RBC) [Entitic mass] 28.6 pg Normal 26.0-34.0 [facility] Comment on above: Order Comment: Speci men Type: BLOOD SPECIMEN Ordering Facility: [facility] Address: [address] [place] [address] Performed By: #### 5 7021-8 #### [facility] CLIA [id number] [address] [place] [address] [place] MCHC (RBC) [Mass/Vol] 32.5 g/dL Normal 30.5-36.0 [facility] Comment on above: Order Comment: Speci men Type: BLOOD SPECIMEN Ordering Facility: [facility] Address: [address] [place] [address] Performed By: #### 5 7021-8 #### [facility] CLIA [id number] [address] [place] [address] [place] MCV (RBC) [Entitic vol] 87.9 fL Normal 80.0-100.0 [facility] Comment on above: Order Comment: Speci men Type: BLOOD SPECIMEN Ordering Facility: [facility] Address: [address] [place] [address] Performed By: #### 5 7021-8 #### [facility] CLIA [id number] [address] [place] [address] [place] Monocytes (Bld) [#/Vol] 0.91 10*3/uL High <0.87 [facility] Comment on above: Order Comment: Speci men Type: BLOOD SPECIMEN Ordering Facility: [facility] Address: [address] [place] [address] Performed By: #### 5 7021-8 #### [facility] CLIA [id number] [address] [place] [address] [place] Monocytes/100 WBC (Bld) 5.3 % Normal [facility] Comment on above: Order Comment: Speci men Type: BLOOD SPECIMEN Ordering Facility: [facility] Address: [address] [place] [address] Performed By: #### 5 7021-8 #### [facility] CLIA [id number] [address] [place] [address] [place] Neutrophils (Bld) [#/Vol] 15.20 10*3/uL High 1.45-7.50 [facility] Comment on above: Order Comment: Speci men Type: BLOOD SPECIMEN Ordering Facility: [facility] Address: [address] [place] [address] Performed By: #### 5 7021-8 #### [facility] CLIA [id number] [address] [place] [address] [place] Neutrophils/100 WBC (Bld) 88.6 % Normal [facility] Comment on above: Order Comment: Speci men Type: BLOOD SPECIMEN Ordering Facility: [facility] Address: [address] [place] [address] Performed By: #### 5 7021-8 #### [facility] CLIA [id number] [address] [place] [address] [place] Nucleated RBC (Bld) [#/Vol] 10*3/uL Normal <0.01 [facility] Comment on above: Order Comment: Speci men Type: BLOOD SPECIMEN Ordering Facility: [facility] Address: [address] [place] [address] Performed By: #### 5 7021-8 #### [facility] CLIA [id number] [address] [place] [address] [place] Nucleated RBC/100 WBC (Bld) [Ratio] 0.0 /100 WBC Normal [facility] Comment on above: Order Comment: Speci men Type: BLOOD SPECIMEN Ordering Facility: [facility] Address: [address] [place] [address] Performed By: #### 5 7021-8 #### [facility] CLIA [id number] [address] [place] [address] [place] Platelet mean volume (Bld) [Entitic vol] 9.0 fL Normal 9.0-12.7 [facility] Comment on above: Order Comment: Speci men Type: BLOOD SPECIMEN Ordering Facility: [facility] Address: [address] [place] [address] Performed By: #### 5 7021-8 #### [facility] CLIA [id number] [address] [place] [address] [place] Platelets (Bld) [#/Vol] 321 10*3/uL Normal 150-400 [facility] Comment on above: Order Comment: Speci men Type: BLOOD SPECIMEN Ordering Facility: [facility] Address: [address] [place] [address] Performed By: #### 5 7021-8 #### [facility] CLIA [id number] [facility] [place] [address] [place] RBC (Bld) [#/Vol] 3.81 10*6/uL Low 3.90-5.20 [facility] Comment on above: Order Comment: Speci men Type: BLOOD SPECIMEN Ordering Facility: [facility] Address: [address] [place] [address] Performed By: #### 5 7021-8 #### [facility] CLIA [id number] [address] [place] [address] [place] WBC (Bld) [#/Vol] 17.15 10*3/uL High 3.70-11.[address] [facility] Comment on above: Order Comment: Speci men Type: BLOOD SPECIMEN Ordering Facility: [facility] Address: [address] [place] [address] Performed By: #### 5 7021-8 #### [facility] CLIA [id number] [address] [place] [address] [place] CK SerPl-cCncon 08-13-2024 CK [Catalytic activity/Vol] 56 U/L Normal 42-196 [facility] Comment on above: Order Comment: Speci men Type: BLOOD SPECIMEN Ordering Facility: [facility] Address: [address] [place] [address] Performed By: #### 5 7021-8 #### [facility] CLIA [id number] [address] [place] [address] [place] Comprehensive metabolic 2000 panelon 08-13-2024 Albumin [Mass/Vol] 4.0 g/dL Normal 3.9-4.9 [facility] Comment on above: Order Comment: Speci men Type: BLOOD SPECIMEN Ordering Facility: [facility] Address: [address] [place] [address] Performed By: #### 5 763-8 #### [facility] CLIA [id number] [address] [place] [address] [place] ALP [Catalytic activity/Vol] 99 U/L Normal 34-123 [facility] Comment on above: Order Comment: Speci men Type: BLOOD SPECIMEN Ordering Facility: [facility] Address: [address] [place] [address] Performed By: #### 5 763-8 #### [facility] CLIA [id number] [address] [place] [address] [place] ALT [Catalytic activity/Vol] 15 U/L Normal 7-38 [facility] Comment on above: Order Comment: Speci men Type: BLOOD SPECIMEN Ordering Facility: [facility] Address: [address] [place] [address] Performed By: #### 5 763-8 #### [facility] CLIA [id number] [address] [place] [address] [place] Anion gap [Moles/Vol] 14 mmol/L Normal 8-15 [facility] Comment on above: Order Comment: Speci men Type: BLOOD SPECIMEN Ordering Facility: [facility] Address: [address] [place], [place] [address] Performed By: #### 5 763-8 #### [facility] CLIA [id number] [address] [place] [address] [place] AST [Catalytic activity/Vol] 18 U/L Normal 13-35 [facility] Comment on above: Order Comment: Speci men Type: BLOOD SPECIMEN Ordering Facility: [facility] Address: [address] [place] [address] Performed By: #### 5 763-8 #### [facility] CLIA [id number] [address] [place] [address] [place] Bilirubin [Mass/Vol] 0.2 mg/dL Normal 0.2-1.[address] [facility] Comment on above: Order Comment: Speci men Type: BLOOD SPECIMEN Ordering Facility: [facility] Address: [address] [place] [address] Performed By: #### 5 763-8 #### [facility] CLIA [id number] [address] [place] [address] [place] Calcium [Mass/Vol] 9.2 mg/dL Normal 8.5-10.2 [facility] Comment on above: Order Comment: Speci men Type: BLOOD SPECIMEN Ordering Facility: [facility] Address: [address] [place] [address] Performed By: #### 5 763-8 #### [facility] CLIA [id number] [address] [place] [address] [place] Chloride [Moles/Vol] 96 mmol/L Low 98-[address] [facility] Comment on above: Order Comment: Speci men Type: BLOOD SPECIMEN Ordering Facility: [facility] Address: [address] [place] [address] Performed By: #### 5 763-8 #### [facility] CLIA [id number] [address] [place] [address] [place] CO2 [Moles/Vol] 24 mmol/L Normal 22-30 [facility] Comment on above: Order Comment: Speci men Type: BLOOD SPECIMEN Ordering Facility: [facility] Address: [address] [place] [address] Performed By: #### 5 763-8 #### [facility] CLIA [id number] [address] [place] [address] [place] Creatinine [Mass/Vol] 0.87 mg/dL Normal 0.58-0.96 [facility] Comment on above: Order Comment: Speci men Type: BLOOD SPECIMEN Ordering Facility: [facility] Address: [address] [place] [address] Performed By: #### 5 763-8 #### [facility] CLIA [id number] [address] [place] [address] [place] Creatinine and Glomerular filtration rate.predicted panel (S/P/Bld) 64 mL/min/1.73m??? Normal >=60 [facility] Comment on above: Order Comment: Speci men Type: BLOOD SPECIMEN Ordering Facility: [facility] Address: [address] [place] [address] Result Comment: Hilda mated Glomerular Filtration Rate [...] GFR. Performed By: #### 5 763-8 #### [facility] CLIA [id number] [address] [place] [address] [place] Glucose [Mass/Vol] 212 mg/dL High 74-99 [facility] Comment on above: Order Comment: Speci men Type: BLOOD SPECIMEN Ordering Facility: [facility] Address: [address] [place] [address] Result Comment: The [place] Diabetes [employer] (ADA) provides guidance for cutoff [...] Standards of Medical Care in Diabetes 2016, [place] [employer]. Diabetes Care. 2016.39(Suppl 1). Performed By: #### 5 763-8 #### [facility] CLIA [id number] [address] [place] [address] [place] Potassium [Moles/Vol] 4.6 mmol/L Normal 3.7-5.1 [facility] Comment on above: Order Comment: Katei halina Type: BLOOD SPECIMEN Ordering Facility: [facility] Address: [address] [place] [address] Performed By: #### 5 763-8 #### [facility] CLIA [id number] [address] [place] [address] [place] Protein [Mass/Vol] 6.5 g/dL Normal 6.3-8.0 [facility] Comment on above: Order Comment: Fan meade Type: BLOOD SPECIMEN Ordering Facility: [facility] Address: [address] [place] [address] Performed By: #### 5 763-8 #### [facility] CLIA [id number] [address] [place] [address] [place] Sodium [Moles/Vol] 134 mmol/L Low 136-144 [facility] Comment on above: Order Comment: Katei halina Type: BLOOD SPECIMEN Ordering Facility: [facility] Address: [address] [place] [address] Performed By: #### 5 763-8 #### [facility] CLIA [id number] [address] [place] [address] [place] Urea nitrogen [Mass/Vol] 29 mg/dL High 7-21 [facility] Comment on above: Order Comment: Speci men Type: BLOOD SPECIMEN Ordering Facility: [facility] Address: [address] [place] [address] Performed By: #### 5 763-8 #### [facility] CLIA [id number] [address] [place] [address] [place] ECG COMPLETEon 08-13-2024 ECG COMPLETE Ventricular Rate : 9 7 BPM Atrial Rate : 97 BPM P-R Interval : 174 ms QRS Duration : 78 ms Q-T Interval : 328 ms QTC Calculation(Bazett) : 416 ms Calculated P [place] : 64 degrees Calculated R [place] : 29 degrees Calculated T [place] : 68 degrees SINUS RHYTHM WITH PREMATURE ATRIAL COMPLEXES CANNOT EXCLUDE ANTERIOR MYOCARDIAL INFARCTION , AGE UNDETERMINED ABNORMAL ECG 1402 08/13/2024 Confirmed by DO ROMO ALAN ([id number]), editor farm journal CAROLINA MERRITT ([id number]) on 08/14/2024 8:29:13 AM NAME : YUSUF MEDINA PID : [id number] : 1935 Gender : Female Race : ORD : [id number] Procedure Date : Aug 13 2024 14:04:37 Edit Date : Aug 14 2024 08:29:17 Diagnosis: SINUS RHYTHM WITH PREMATURE ATRIAL COMPLEXES CANNOT EXCLUDE ANTERIOR MYOCARDIAL INFARCTION , AGE UNDETERMINED ABNORMAL ECG 1402 08/13/2024 Confirmed by DO ROMO ALAN ([id number]), editor farm journal CAROLINA MERRITT ([id number]) on 08/14/2024 8:29:13 AM Test Reason : Chest Pain Location : 215 : [address]UED [id number] Overread By : DO ROMO ALAN Edited By : CAROLINA MERRITT Referred By : , Acquired by : Ally MURGUIA [facility] ED NOTEon 08-13-2024 ED NOTE HNO ID: [id number] Author: ELIF SAM RN Service: Nursing Author Type: Registered Nurse Type: ED Notes Filed: 08/13/2024 17:42 Note Text: Pt given discharge instructions. Verbalized understanding. Pt taken to daughters car by wheelchair. Normal [facility] ED NOTE HNO ID: [id number] Author: KONSTANTIN FLORES, RN Service: Nursing Author Type: Registered Nurse [...] staff of any changes in condition. Normal [facility] ED PROV NOTEon 08-13-2024 ED PROV NOTE HNO ID: [id number] Author: MARIUSZ ROMO DO Service: Emergency Medicine [...] better. Her daughter is translating. They speak [place]. She does not want me to call an additional freelance translator. Patient does not have headache. No posterior head or neck pain. No chest pain. No thoracic lumbar back pain. No abdominal pain. No dysuria. No urinary frequency. No diarrhea. No constipation. She really is without complaints. She believes she has been eating fine. 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 and [...] - REMV CATARACT EXTRACAP,INSERT LENS Bilateral 2020 [facility] FAMILY HISTORY Problem Relation Age of Onset [...] / D (more content not included)... Normal [facility] HIGH SENSITIVITY TROPONIN T (INITIAL)on 08-13-2024 Troponin T.cardiac High sensitivity method [Mass/Vol] 30 ng/L High <12 [facility] Comment on above: Order Comment: Speci men Type: BLOOD SPECIMEN Ordering Facility: [facility] Address: [address] [place] [address] Performed By: #### 5 763-8 #### [facility] CLIA [id number] [address] [place] [address] [place] HIGH SENSITIVITY TROPONIN T (SECOND)on 08-13-2024 Troponin T.cardiac High sensitivity method [Mass/Vol] 29 ng/L High <12 [facility] Comment on above: Order Comment: Speci men Type: BLOOD SPECIMENOrdering Facility: [facility] Address: [address] [place] [address] Performed By: #### L [id number] ####[facility] [id number] [place] [address] [place] PT panel Coag (PPP)on 2023 INR Coag (PPP) [Relative time] 1.0 {INR} Normal 0.9-1.3 [facility] Comment on above: Order Comment: Fan meade Type: BLOOD SPECIMENOrdering Facility: [facility] Address: [address] [place] [address] Result Comment: Kendra min K Antagonist (VKA) Therapeutic Range: INR 2 to 3 (Target INR of 2.5) Note: For patients treated with VKA drugs, such as warfarin, the [place] [employer]icians 2012 Guideline recommends [...] Chest 2012, 141:7S-47S John RA, et al. [facility] 2017, 70: 252-289 Performed By: #### 3 4528-0 ####[facility]ORY[facility]IA [id number] [place] [address] [place] PT Coag (PPP) [Time] 10.6 s Normal 9.7-13.[address] [facility] Comment on above: Order Comment: Fan meade Type: BLOOD SPECIMENOrdering Facility: [facility] Address: [address] [place] [address] Performed By: #### 3 4528-0 ####[facility]ORY[facility]IA [id number] [place] [address] [place] Urinalysis complete panel (U )on 08-13-2024 Bilirubin Ql (U) Negative Normal Negative [facility] Comment on above: Order Comment: Fan meade Type: BLOOD SPECIMEN Ordering Facility: [facility] Address: [address] [place] [address] Performed By: #### 2 132-9, 2284-8 #### [facility] CLIA [id number] [address] [place] [address] [place] Clarity (Unsp spec) Clear Normal Clear [facility] Comment on above: Order Comment: Speci men Type: BLOOD SPECIMEN Ordering Facility: [facility] Address: [address] [place] [address] Performed By: #### 2 132-9, 2283-8 #### [facility] CLIA [id number] [address] [place] [address] [place] Color (U) Yellow Normal yellow [facility] Comment on above: Order Comment: Speci men Type: BLOOD SPECIMEN Ordering Facility: [facility] Address: [address] [place] [address] Performed By: #### 2 132-9, 8 #### [facility] CLIA [id number] [address] [place] [address] [place] Epithelial cells LM.HPF (Urine sed) [#/Area] Few Normal [facility] Comment on above: Order Comment: Speci men Type: BLOOD SPECIMEN Ordering Facility: [facility] Address: [address] [place] [address] Result Comment: Few Performed By: #### 2 132-9, 2283-8 #### [facility] CLIA [id number] [address] [place] [address] [place] Glucose Test strip (U) [Mass/Vol] Negative Normal Trace, Negative [facility] Comment on above: Order Comment: Speci men Type: BLOOD SPECIMEN Ordering Facility: [facility] Address: [address] [place] [address] Performed By: #### 2 132-9, 2283-8 #### [facility] CLIA [id number] [address] [place] [address] [place] Hemoglobin Ql (U) Trace Normal Negative, Trace [facility] Comment on above: Order Comment: Speci men Type: BLOOD SPECIMEN Ordering Facility: [facility] Address: [address] [place] [address] Performed By: #### 2 132-9, 8 #### [facility] CLIA [id number] [address] [place] [address] [place] Ketones Ql (U) Negative Normal Negative, Trace [facility] Comment on above: Order Comment: Speci men Type: BLOOD SPECIMEN Ordering Facility: [facility] Address: [address] [place] [address] Performed By: #### 2 132-9, 8 #### [facility] CLIA [id number] [address] [place] [address] [place] Leukocyte esterase Test strip Ql (U) Negative Normal Negative, 25 Vani/uL [facility] Comment on above: Order Comment: Speci men Type: BLOOD SPECIMEN Ordering Facility: [facility] Address: [address] [place] [address] Performed By: #### 2 132-9, 8 #### [facility] CLIA [id number] [address] [place] [address] [place] Nitrite Ql (U) Negative Normal Negative [facility] Comment on above: Order Comment: Speci men Type: BLOOD SPECIMEN Ordering Facility: [facility] Address: [address] [place] [address] Performed By: #### 2 132-9, 8 #### [facility] CLIA [id number] [address] [place] [address] [place] pH (U) 6.0 [pH] Normal 5.0-8.0 [facility] Comment on above: Order Comment: Speci men Type: BLOOD SPECIMEN Ordering Facility: [facility] Address: [address] [place] [address] Performed By: #### 2 132-9, 8 #### [facility] CLIA [id number] [address] [id number] [address] [place] Protein (U) [Mass/Vol] 1+ Abnormal Trace , Negative [facility] Comment on above: Order Comment: Speci men Type: BLOOD SPECIMEN Ordering Facility: [facility] Address: [address] [place] [address] Performed By: #### 2 132-9, 8 #### [facility] CLIA [id number] [address] [place] [address] [place] RBC LM.HPF (Urine sed) [#/Area] 3-5 /HPF Abnormal 0-3 /HPF [facility] Comment on above: Order Comment: Speci men Type: BLOOD SPECIMEN Ordering Facility: [facility] Address: [address] [place] [address] Performed By: #### 2 132-9, 8 #### [facility] CLIA [id number] [address] [place] [address] [place] Specific gravity (U) [Rel density] 1.021 Normal 1.005-1.030 [facility] Comment on above: Order Comment: Speci men Type: BLOOD SPECIMEN Ordering Facility: [facility] Address: [address] [place] [address] Performed By: #### 2 132-9, 8 #### [facility] CLIA [id number] [address] [place] [address] [place] Urobilinogen Ql (U) Normal Normal Normal [facility] Comment on above: Order Comment: Speci men Type: BLOOD SPECIMEN Ordering Facility: [facility] Address: [address] [place] [address] Performed By: #### 2 132-9, 8 #### [facility] CLIA [id number] [address] [place] [address] [place] WBC LM.HPF (Urine sed) [#/Area] 0-5 /HPF Normal 0-5 /HPF [facility] Comment on above: Order Comment: Speci men Type: BLOOD SPECIMEN Ordering Facility: [facility] Address: [address] [place] [address] Performed By: #### 2 132-9, 2284-8 #### 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: PHU Transcribe Date/Time: Aug 13 2024 4:03P Dictated by : GILLIAN ELLIOTT MD This examination was interpreted and the report reviewed and electronically signed by: GILLIAN ELLIOTT MD on Aug 13 2024 4:04PM EST [id number] Normal [facility] CNOVon 07-12-2024 CNOV Office Visit ([facility] ) YUSUF MEDINA ([id number]) 1935 Mendez DOMINGUEZ Date Time Provider Department 07/12/24 9:40 AM MIGDALIA CRAMER [facility] During your visit today, we recorded [...] [D50.9] Order(s):BASIC METABOLIC PANEL [SQBMP] Order #: [id number] FUTURE HEMOGLOBIN A1C [VNIWT3A] Order #: [id number] FUTURE ALBUMIN/CREATININE RATIO, URINE [SQUACR] Order #: [id number] FUTURE COMPLETE BLOOD COUNT [SQCBC] Order #: [id number] FUTURE THYROID STIMULATING HORMONE [SQTSH] Order #: [id number] FUTURE Prescriptions as of 07/12/2024 - pioglitazone [...] mouth once daily. - blood sugar diagnostic (Performable ULTRA TEST) test strip Test blood sugar once daily - diclofenac (VOLTARE (more content not included)... Normal [facility] Basic metabolic 2000 panelon 07-11-2024 Anion gap [Moles/Vol] 14 mmol/L Normal 8-15 [facility] Comment on above: Order Comment: Speci men Type: BLOOD SPECIMENOrdering Facility: [facility] Address: [address] [place] [address] Performed By: #### 2 4321-2 ####[facility] LABCLIA [id number] [place] [address] [place] Calcium [Mass/Vol] 9.9 mg/dL Normal 8.5-10.2 [facility] Comment on above: Order Comment: Speci men Type: BLOOD SPECIMENOrdering Facility: [facility] Address: [address] [place] [address] Performed By: #### 2 4321-2 ####[facility] LABCLIA [id number] [place] [id number] [place] Chloride [Moles/Vol] 101 mmol/L Normal 98-[address] [facility] Comment on above: Order Comment: Speci men Type: BLOOD SPECIMENOrdering Facility: [facility] Address: [address] [place] [address] Performed By: #### 2 4321-2 ####[facility] LABCLIA [id number] [place] [address] [place] CO2 [Moles/Vol] 20 mmol/L Low 22-30 [facility] Comment on above: Order Comment: Speci men Type: BLOOD SPECIMENOrdering Facility: [facility] Address: [address] [place] [address] Performed By: #### 2 4321-2 ####[facility] LABCLIA [id number] [place] [id number] [place] Creatinine [Mass/Vol] 0.93 mg/dL Normal 0.58-0.96 [facility] Comment on above: Order Comment: Speci men Type: BLOOD SPECIMENOrdering Facility: [facility] Address: [address] [place] [address] Performed By: #### 2 4321-2 ####[facility] LABCLIA [id number] [address] Creatinine and Glomerular filtration rate.predicted panel (S/P/Bld) 59 mL/min/1.73m??? Low >=60 [facility] Comment on above: Order Comment: Speci men Type: BLOOD SPECIMENOrdering Facility: [facility] Address: [address] [place] [address] Result Comment: Hilda mated Glomerular Filtration Rate [...] actual GFR. Performed By: #### 2 4321-2 ####[facility] LABCLIA [id number] [place] [id number] [place] Glucose [Mass/Vol] 244 mg/dL High 74-99 [facility] [facility] Comment on above: Order Comment: Speci men Type: BLOOD SPECIMENOrdering Facility: [facility] Address: [address] [place] [address] Result Comment: The [place] Diabetes Association (ADA) provides guidance for cutoff [...] Standards of Medical Care in Diabetes 2016, [place] Diabetes Association. Diabetes Care. 2016.39(Suppl 1). Performed By: #### 2 4321-2 ####[facility] LABCLIA [id number] [place] [address] [place] Potassium [Moles/Vol] 5.2 mmol/L High 3.7-5.1 [facility] Comment on above: Order Comment: Speci men Type: BLOOD SPECIMENOrdering Facility: [facility] Address: [address] [place] [address] Performed By: #### 2 4321-2 ####[facility] LABCLIA [id number] [place] [id number] [place] Sodium [Moles/Vol] 135 mmol/L Low 136-144 [facility] Comment on above: Order Comment: Speci men Type: BLOOD SPECIMENOrdering Facility: [facility] Address: [address] [place] [address] Performed By: #### 2 4321-2 ####[facility] LABCLIA [id number] [place] [id number] [place] Urea nitrogen [Mass/Vol] 30 mg/dL High 7-21 [facility] Comment on above: Order Comment: Speci men Type: BLOOD SPECIMENOrdering Facility: [facility] Address: [address] [place] [address] Performed By: #### 2 4321-2 ####[facility] LABCLIA [id number] [place] [address] [place] HbA1c (Bld)on 07-11-2024 Average glucose Estimated from glycated hemoglobin (Bld) [Mass/Vol] 189 mg/dL Normal [facility] Comment on above: Order Comment: Fan meade Type: BLOOD SPECIMENOrdering Facility: [facility] Address: [address] [place] [address] Result Comment: eAG: (Estimated average glucose) is a calculated value from HgbA1c and is outbound call center representative of the average blood glucose level in the last 2-3 month period. Performed By: #### 5 5454-3 ####[facility] LABCLIA [id number] [place] [address] [place] HbA1c (Bld) [Mass fraction] 8.2 % High 4.3-5.6 [facility] Comment on above: Order Comment: Fan meade Type: BLOOD SPECIMENOrdering Facility: [facility] Address: [address] [place] [address] Result Comment: Amer [place] Diabetes Association guidelines indicate that patients with HgbA1c in the range 5.7-6.4% are at increased risk for development of diabetes, and intervention by lifestyle modification may be beneficial. HgbA1c greater or equal to 6.5% is considered diagnostic of diabetes. Performed By: #### 5 5454-3 ####[facility] LABCLIA [id number] [place] [address] [place] LIPID PANEL, NONFASTINGon Cholesterol [Mass/Vol] 151 mg/dL Normal <200 [facility] Comment on above: Order Comment: Fan meade Type: BLOOD SPECIMEN Ordering Facility: [facility] Address: [address] [place] [address] Result Comment: <200 mg/dL, Desirable 200-239 mg/dL, Borderline high >239 mg/dL, High Performed By: #### 1 3964-2 #### [facility] CLIA [id number] [address] [place] [address] [place] HDL CHOLESTEROL, NF 59 mg/dL Normal >39 [facility] Comment on above: Order Comment: Fan meade Type: BLOOD SPECIMEN Ordering Facility: [facility] Address: [address] [place] [address] Result Comment: 40-5 9 mg/dL, Acceptable >59 mg/dL, High: Negative risk factor for coronary heart disease <40 mg/dL, Low: Positive risk factor for coronary heart disease Performed By: #### 1 3964-2 #### [facility] CLIA [id number] [address] [place] [address] OF [place] [facility] LDL CHOLESTEROL, NF 71 mg/dL Normal <100 [facility] Comment on above: Order Comment: Fan meade Type: BLOOD SPECIMEN Ordering Facility: [facility] Address: [address] [place] [address] Result Comment: <100 mg/dL, Optimal 100-129 mg/dL, Near optimal/above optimal 130-159 mg/dL, Borderline high 160-189 mg/dL, High >189 mg/dL, Very high Secondary prevention optimal LDL Cholesterol levels are recommended to be < 70 mg/dL Performed By: #### 1 3964-2 #### [facility] CLIA [id number] [address] [place] [address] [place] LDL/HDL RATIO, NF 1.20 mg/dL Normal <2.54 [facility] Comment on above: Order Comment: Fan halina Type: BLOOD SPECIMEN Ordering Facility: [facility] Address: [address] [place] [address] Result Comment: Refrosanna esquivelce: 1. National Cholesterol Education Program ATP III Guideline At-A-Glance Quick Desk Reference: National Heart, Lung, and Blood [place]. National Institutes of Health. 2001: NIH Publication No. 01-3305. 2. An International Atherosclerosis Society position paper: global recommendations for the management of dyslipidemia: executive summary, Atherosclerosis. 2014: 232(2):410-413. Performed By: #### 1 3964-2 #### [facility] CLIA [id number] [address] [place] [address] [place] NON HDL CHOL, NF 92 mg/dL Normal <130 [facility] Comment on above: Order Comment: Speci men Type: BLOOD SPECIMEN Ordering Facility: [facility] Address: [address] [place] [address] Result Comment: <130 mg/dL, Optimal 130-159 mg/dL, Near optimal/above optimal 160-189 mg/dL, Borderline high 190-219 mg/dL, High >219 mg/dL, Very high Secondary prevention optimal non HDL Cholesterol levels are recommended to be <100 mg/dL Performed By: #### 1 3964-2 #### [facility] CLIA [id number] [address] [place] [address] [place] T CHOL/HDL RATIO NF 2.56 mg/dL Normal <5.10 [facility] Comment on above: Order Comment: Speci men Type: BLOOD SPECIMEN Ordering Facility: [facility] Address: [address] [place] [address] Performed By: #### 1 3964-2 #### [facility] CLIA [id number] [address] [place] [address] [place] TRIGLYCERIDES, NF 107 mg/dL Normal <150 [facility] Comment on above: Order Comment: Speci men Type: BLOOD SPECIMEN Ordering Facility: [facility] Address: [address] [place] [address] Result Comment: <150 mg/dL, Normal 150-199 mg/dL, Borderline high 200-499 mg/dL, High >499 mg/dL, Very high Performed By: #### 1 3964-2 #### [facility] CLIA [id number] [address] [place] [address] [place] VLDL CHOLESTEROL, NF 21 mg/dL Normal <[address] [facility] Comment on above: Order Comment: Speci men Type: BLOOD SPECIMEN Ordering Facility: [facility] Address: [address] [place] [address] Performed By: #### 1 3964-2 #### [facility] CLIA [id number] [address] [place] [address] [place] [address] [place] Home Health Progress Noteon 12-09-2021 Home Health Progress Note Follow up call placed to patient regarding HHC. Spoke with Yusuf regarding services. Patient states no services needed and hung up on caller. Will cancel referral to [facility]. Normal [facility] BASICMETAon 12-07-2021 GFR AA 45 Normal [facility] Comment on above: Result Comment: Afri can [place] GFR Calc Medical judgement is necessary to [...] for drug dosing. Performed By: #### C D:[id number], 2705776, 060883, 985050, 804408, 284797 #### [facility] [address] [place] [address] Hi Teacher: Robert Ybarra MD Glomerular Filtration Rate 37 mL/min/1.73m? Normal [facility] Comment on above: Result Comment: Non GFR [...] for drug dosing. Performed By: #### C D:[id number], 5062466, 905891, 437048, 902400, 944751 #### [facility] [address] [place] [address] Hi Teacher: Robert Ybarra MD Osmolality [Osmolality] 287 mosm/kg Normal 275-295 [facility] Comment on above: Performed By: #### C D:[id number], 0812294, 256757, 219056, 199830, 029575 #### [facility] [address] [place] [address] Hi Teacher: Robert Ybarra MD Urea nitrogen/Creatinine [Mass ratio] 19.1 mg/mg Normal [facility] Comment on above: Performed By: #### C D:[id number], 8877517, 365515, 073159, 944322, 857042 #### [facility] [address] [place] [address] Hi Teacher: Robert Ybarra MD Calcium [Mass/Vol] 9.7 mg/dL Normal 8.5-10.5 [facility] Comment on above: Performed By: #### C D:[id number], 1363009, 420067, 529549, 964676, 701288 #### [facility] [address] [place] [address] Hi Teacher: Robert Ybarra MD Chloride [Moles/Vol] 107 mmol/L Normal 100-109 [facility] Comment on above: Performed By: #### C D:[id number], 6158022, 630680, 517322, 233020, 705356 #### [facility] [address] [place] [address] Hi Teacher: Robert Ybarra MD CO2 [Moles/Vol] 25.9 mmol/L Normal 21.0-32.0 [facility] Comment on above: Performed By: #### C D:[id number], 0911748, 449183, 415920, 866718, 371389 #### [facility] [address] [place] [address] Hi Teacher: Robert Ybarra MD Creatinine [Mass/Vol] 1.4 mg/dL High 0.6-1.0 [facility] Comment on above: Performed By: #### C D:[id number], 8852404, 225754, 087933, 478406, 402812 #### [facility] [address] [place] [address] Hi Teacher: Robert Ybarra MD Glucose [Mass/Vol] 177 mg/dL High 72-100 [facility] Comment on above: Result Comment: Shireen puncture should occur prior to sulfasalazine administration due to the potential for falsely depressed results. Venipuncture should occur prior to sulfapyridine administration due to the potential falsely elevated results. Baseline assay values before administration of sulfasalazine and sulfapyridine therapy would not be affected. Performed By: #### C D:[id number], 2418107, 352126, 376095, 415218, 008569 #### [facility] [address] [place] [address] Hi Teacher: Robert Ybarra MD Potassium [Moles/Vol] 4.7 mmol/L Normal 3.5-5.1 [facility] Comment on above: Performed By: #### C D:[id number], 4761646, 169213, 914556, 086833, 437297 #### [facility] [address] [place] [address] Hi Teacher: Robert Ybarra MD Sodium [Moles/Vol] 139 mmol/L Normal 135-145 [facility] Comment on above: Performed By: #### C D:[id number], 1778774, 743239, 719426, 724907, 003802 #### [facility] [address] [place] [address] Hi Teacher: Robert Ybarra MD Urea nitrogen [Mass/Vol] 26 mg/dL High 10-20 [facility] Comment on above: Performed By: #### C D:[id number], 0736434, 600081, 341804, 541592, 176267 #### [facility] [address] [place] [address] Hi Teacher: Robert Ybarra MD CPKon 12-07-2021 CPK 1185 unit/L Critically abnormal 26-192 [facility] Comment on above: Result Comment: Crit ical Result(s) called at: 13:24:37 on 12/07/2021 by: MIRNA rechecked, RBR to: Dr. Beckford Performed By: #### C D:[id number], 9118120, 682975, 367571, 691189, 884028 #### [facility] [address] [place] [address] Hi Teacher: Robert Ybarra MD Utilization Review Noteon Utilization Review Note Inpatient recomm ended. Inpatient ordered. Patient with #1 acute hypothermia. YUSUF MEDINA 12/03/21 [id number] CCE 200 INPT UPDATED CERNER TO [facility] Verified admit thru the portal [id number] PATIENT ALREADY DISCHARGED AT THE TIME OF THIS REVIEW. Faxed Normal [facility] Discharge Educationon 2021 Discharge Education Patient Education Material Normal [facility] Inpatient Patient Summaryon 12-05-2021 Inpatient Patient Summary [facility] Discharge Instructions [address] [place] [address] \\.br\\(Patient Copy)\\.br\\ \\.br\\ \\.br\\Name: SARITAANDERSONADRIANYUSUF : 1935 \\.br\\Diagnosis: Abrasion of right elbow; Benign essential hypertension; Chronic kidney disease (CKD), stage III (moderate); Contusion of right thigh; Diabetes mellitus type II, controlled; acute Hypothermia \\.br\\ \\.br\\Allergies: No Known Allergies\\.br\\ \\.br\\Registration Date: 12/03/21\\.br\\\\.br\\\\.br \\ \\.br\\ Current Date Time: 12/05/2021 07:42:18 \\.br\\ \\.br\\Address: [address] [place] [address] \\.br\\ \\.br\\ \\.br\\Primary Care Provider: \\.br\\Name: RADHA CRAMER\\.br\\ \\.br\\ \\.br\\Thank you for choosing [facility] for your care. You are very important to us. Our goal is to demonstrate our high quality medical care and provide you with a very good patient experience.\\.br\\ You may receive a survey about our service. Please take the time to complete the survey and return it so we can continue to enhance our service.\\.br\\ Thank you again for allowing [facility] to care for your medical needs. If you have any questions about your care or follow up information please contact your doctor.\\.br\\\\.br\\Follo w-up Instructions\\.br\\\\.br\\ \\.br\\With: Address: When: \\.br\\Follow Up with your Primary Care Doctor in 7-10 Days \\.br\\\\.br\\\\.br\\\\.br\\\\. br\\\\.br\\Medication Information\\.br\\Only Take The Medicines On This List. \\.br\\Keep This List and Bring It To Your Next Appointment. \\.br\\Medicines To Take At Home: \\.br\\ Medicine Name\\.br\\ (Generic Name) Amount to Take How to Take it How Often to Take it Additional Instructions Next Dose Due \\.br\\ glipiZIDE 2.5 mg oral tablet, extended release\\.br\\(glipizide ) 2.5 mg By Mouth DAILY \\.br\\ Prevacid 30 mg oral delayed release capsule\\.br\\(lansopraz ole) 30 mg By Mouth DAILY \\.br\\ metFORMIN 500 mg oral tablet\\.br\\(metformin = glucophage) 500 mg By Mouth TWICE A DAY \\.br\\ Actos 45 mg oral tablet\\.br\\(pioglitazo ne) 45 mg By Mouth DAILY \\.br\\ Pravachol 20 mg oral tablet\\.br\\(pravastati n) 20 mg By Mouth AT BEDTIME \\.br\\\\.br\\Understandin g your home medicine is important to [...] list with you to all follow up appointments.\\.br\\\\.br \\Patient education materials, if any, will display below\\.br\\\\.br\\ Prescription leaflets, if any, will display below\\.br\\ \\.br\\Guidelines for a Healthy Lifestyle:\\.br\\ ACTIVITY Follow your doctors instructions regarding staying active\\.br\\Balance rest and activity. Continue to do the activities you enjoy if okay with your doctor. Both activity and rest are important to the health of your heart.\\.br\\Avoid people with colds / flu.\\.br\\ \\.br\\ SMOKING Do not smoke or use other nicotine products. Nicotine is in all tobacco products. Nicotine causes damage to the heart, brain, and lungs. It is never too late to quit. Even if you have smoked for years, you can benefit from quitting or smoking less.\\.br\\If you or a loved one is interested in more information on smoking cessation, contact [facility] [phone]\\.br\\ \\.br\\ DIET Eat a variety of nutritious foods from all the food groups. To get the nutrients you need, choose foods like vegetables, fruits, whole-grain products and fat-free or low-fat dairy products most often. Your food choices each day affect your health.\\.br\\Here are some tips for a healthy diet for most people.\\.br\\? Go Lean with Protein---Meats and Dairy products\\.br\\? Choose a variety of Fruits and Vegetables daily\\.br\\? Choose whole grains\\.br\\? Limit Processed and packaged prepared foods \\.br\\ To schedule an outpatient diet education appointment call \\.br\\ \\.br\\ VACCINE Discuss with your Physician the need for pneumococcal vaccine and other vaccines at your next appointment.\\.br\\ \\.br\\ IMPORTANT NUMBERS Health Connection / Physician Referral and Health Information [phone].\\.br\\Hear t and Vascular [place] [id number] ( )\\.br\\S easons of a Woman?s Life [phone] \\.br\\ \\.br\\ Call immediately if you or someone you know are having signs of a STROKE:\\.br\\? Sudden numbness or weakness of the face, arm, or leg, especially on one side of the body\\.br\\? Sudden confusion, trouble speaking or understanding\\.br\\? Sudden trouble seeing in one or both eyes\\.br\\? Sudden trouble walking, dizziness, loss of balance or coordination\\.br\\? Sudden severe headache with no known cause \\.br\\ Call immediately if you or someone you know are having signs of a HEART ATTACK:\\.br\\? Chest discomfort: M (more content not included)... Normal [facility] AUTO DIFFon 12-04-2021 Baso Count 0.05 x1000 Normal 0.00-0.20 [facility] Comment on above: Performed By: #### 1 53743, 696906, 799034, 0990270 ####[facility] [address] [place] [address] Medical Director: Robert Ybarra MD Basos % 0.5 % Normal [facility] Comment on above: Performed By: #### 1 45314, 175343, 457663, 6649612 ####[facility] [address] [place] [address] Medical Director: Robert Ybarra MD Eos Count 0.01 x1000 Normal 0.00-0.50 [facility] Comment on above: Performed By: #### 1 88394, 418889, 773404, 0744648 ####[facility] [address] [place] [address] Medical Director: Robert Ybarra MD Eosinophils/100 WBC (Bld) 0.1 % Normal [facility] Comment on above: Performed By: #### 1 , 161105, 525881, 1778748 ####[facility] [address] [place] [address] Medical Director: Robert Ybarra MD Lymph Count 1.19 x1000 Low 1.20-4.80 [facility] Comment on above: Performed By: #### 1 , 621042, 216560, 7196466 ####[facility] [address] [place] [address] Medical Director: Robert Ybarra MD Lymphocytes/100 WBC (Bld) 11.8 % Normal [facility] Comment on above: Performed By: #### 1 , 970323, 448871, 5033094 ####[facility] [address] [place] [address] Medical Director: Robert Ybarra MD [place] Count 0.57 x1000 Normal 0.10-1.00 [facility] Comment on above: Performed By: #### 1 , 576184, 787140, 7639556 ####[facility] [address] [place] [address] Medical Director: Robert Ybarra MD Monocytes/100 WBC (Bld) 5.6 % Normal [facility] Comment on above: Performed By: #### 1 , 261548, 335352, 8898960 ####[facility] [address] [place] [address] Medical Director: Robert Ybarra MD Neutrophil Count (ANC) 8.28 x1000 Normal 1.40-8.80 [facility] Comment on above: Performed By: #### 1 , 519707, 650242, 9801910 ####[facility] [address] [place] [address] Medical Director: Robert Ybarra MD Neutrophils/100 WBC (Bld) 82.0 % Normal [facility] Comment on above: Performed By: #### 1 27876, 826278, 335150, 7582262 ####[facility] [address] [place] [address] Medical Director: Robert Ybarra MD B12 FOLATEon 12-04-2021 Cobalamin (Vitamin B12) [Mass/Vol] 455 pg/mL Normal 193-986 [facility] Comment on above: Performed By: #### 1 92849, 413992, 340622, 7515423 ####[facility] [address] [place] [address] Medical Director: Robert Ybarra MD FOLATE 14.3 ng/mL Normal 3.1-17.5 [facility] Comment on above: Performed By: #### 1 , 365230, 638757, 2015321 ####[facility] [address] [place] [address] Medical Director: Robert Ybarra MD BLD GASon 12-04-2021 MAGGIE TEST Normal [facility] Comment on above: Performed By: #### C D:[id number], 3211402, 319648, 615820, 525190, 870279 #### [facility] [address] [place] [address] Hi Teacher: Robert Ybarra MD Base Excess -5.0 mmol/L Normal [facility] Comment on above: Performed By: #### C D:[id number], 0294051, 795757, 599333, 132881, 703711 #### [facility] [address] [place] [address] Hi Teacher: Robert Ybarra MD ePAP 0 cmH20 Normal [facility] Comment on above: Performed By: #### C D:[id number], 9758050, 995430, 139529, 286260, 658597 #### [facility] [address] [place] [address] Hi Teacher: Robert Ybarra MD FIO2 36 % Normal [facility] Comment on above: Performed By: #### C D:112079401, 4664856, 676589, 099181, 323730, 429752 #### [facility] [address] [place] [address] Hi Teacher: Robert Ybarra MD HCO3 (Bld) [Moles/Vol] 19.8 mmol/L Low 22.0-26.0 [facility] Comment on above: Performed By: #### C D:[id number], 9387480, 382815, 960503, 416761, 069735 #### [facility] [address] [place], [place] [address] Hi Teacher: Robert Ybarra MD iPAP 0 cmH20 [facility] Comment on above: Performed By: #### C D:[id number], 8842620, 852780, 891032, 175667, 075900 #### [facility] [address] [place] [address] Hi Teacher: Robert Ybarra MD O2 L/M 4.0 [facility] Comment on above: Performed By: #### C D:[id number], 3171560, 662135, 546762, 890875, 828131 #### [facility] [address] [place] [address] Hi Teacher: Robert Ybarra MD Oxygen (Bld) [Partial pressure] 82.0 mm[Hg] Normal 80.0-100.0 [facility] Comment on above: Performed By: #### C D:360323169, 3428075, 498388, 521880, 856721, 548826 #### [facility] [address] [place] [address] Hi Teacher: Robert Ybarra MD Oxygen saturation in Blood 94.1 % Normal [facility] Comment on above: Performed By: #### C D:[id number], 4982225, 432690, 279836, 176573, 296247 #### [facility] [address] [place] [address] Hi Teacher: Robert Ybarra MD PCO2 35.6 mmHg Normal 35.0-45.0 [facility] Comment on above: Performed By: #### C D:608086059, 6612580, 858706, 519329, 174325, 903524 #### [facility] [address] [place] [address] Hi Teacher: Robert Ybarra MD PEEP 0.0 cmH20 Normal [facility] Comment on above: Performed By: #### C D:[id number], 9034666, 837361, 685990, 195115, 847294 #### [facility] [address] [place] [address] Hi Teacher: Robert Ybarra MD pH (Bld) 7.363 [pH] Normal 7.350-7.450 [facility] Comment on above: Performed By: #### C D:253468378, 7043083, 854653, 212847, 661056, 943611 #### [facility] [address] [place] [address] Hi Teacher: Robert Ybarra MD PO2/FiO2 Ratio 228 Low 300-500 [facility] Comment on above: Performed By: #### C D:[id number], 4427919, 407674, 713813, 967266, 311254 #### [facility] [address] [place] [address] Hi Teacher: Robert Ybarra MD Pressure Support. 0 cmH20 Normal [facility] Comment on above: Performed By: #### C D:[id number], 8703633, 605354, 902063, 592341, 428361 #### [facility] [address] [place] [address] Hi Teacher: Robert Ybarra MD RATE 0 bpm Normal [facility] Comment on above: Performed By: #### C D:337908388, 7295641, 026325, 396976, 260599, 640016 #### [facility] [address] [place] [address]1155 Hi Teacher: Robert Ybarra MD TEMP 37.0 degC Normal <=37.0 [facility] Comment on above: Performed By: #### C D:[id number], 1583363, 350698, 704825, 993576, 624217 #### [facility] [address] [place], [place] [id number] Hi Teacher: Robert Ybarra MD Type of Specimen RB Art Normal [facility] Comment on above: Result Comment: RR A RT = Right Artery RB ART = Right Brachial Artery LR ART = Left Radial Artery LB ART = Left Brachial Artery RF ART = Right Femoral Artery LF ART = Left Femoral Artery Performed By: #### C D:[id number], 5519564, 907068, 784347, 803709, 083149 #### [facility] [address] [place] [address] 72717 Hi Teacher: Robert Ybarra MD Ventilation Nasalcan Normal [facility] Comment on above: Performed By: #### C D:[id number], 8600449, 358586, 538467, 900704, 871312 #### [facility] [address] [place] [address]1788 Hi Teacher: Robert Ybarra MD VT 00 mL Normal [facility] Comment on above: Performed By: #### C D:[id number], 1638485, 832147, 232627, 588194, 144221 #### [facility] [address] [place] [address] 95019 Hi Teacher: Robert Ybarra MD CBCNDon 12-04-2021 Erythrocyte distribution width (RBC) [Ratio] 14.2 % Normal 11.5-14.5 [facility] Comment on above: Performed By: #### C D:[id number], 9632949, 740657, 066622, 828044, 834989 #### [facility] [address] [place] [address]3447 Hi Teacher: Robert Ybarra MD Hematocrit (Bld) [Volume fraction] 30.1 % Low 36.0-46.0 [facility] Comment on above: Performed By: #### C D:[id number], 8371941, 150702, 345394, 907928, 469307 #### [facility] [address] [place] [address] 43753 Hi Teacher: Robert Ybarra MD Hemoglobin (Bld) [Mass/Vol] 10.1 g/dL Low 12.0-16.0 [facility] Comment on above: Performed By: #### C D:[id number], 0169444, 360647, 559853, 101111, 266495 #### [facility] [address] [place] [address] 96559 Hi Teacher: Robert Ybarra MD Instr WBC ND 13.8 Normal [facility] Comment on above: Performed By: #### C D:[id number], 9521023, 762462, 498770, 967550, 755532 #### [facility] [address] [place] [address] 82822 Hi Teacher: Robert Ybarra MD MCH (RBC) [Entitic mass] 29.8 pg Normal 27.0-34.0 [facility] Comment on above: Performed By: #### C D:[id number], 3597210, 407340, 348080, 129246, 030528 #### [facility] [address] [place] [address] Hi Teacher: Robert Ybarra MD MCHC (RBC) [Mass/Vol] 33.6 g/dL Normal 32.0-37.0 [facility] Comment on above: Performed By: #### C D:[id number], 5065767, 469874, 822834, 694399, 966993 #### [facility] [address] [place] [address] 67747 Hi Teacher: Robert Ybarra MD MCV (RBC) [Entitic vol] 88.9 fL Normal 80.0-100.0 [facility] Comment on above: Performed By: #### C D:267592263, 5136131, 348904, 811939, 716027, 296761 #### [facility] [address] [place] [address] 01203 Hi Teacher: Robert Ybarra MD Platelet 294 x1000 Normal 150-450 [facility] Comment on above: Performed By: #### C D:086557036, 3336719, 817725, 571965, 757968, 372185 #### [facility] [address] [place] [address] 32171 Hi Teacher: Robert Ybarra MD Platelet mean volume (Bld) [Entitic vol] 6.9 fL Low 7.4-10.4 [facility] Comment on above: Performed By: #### C D:001411183, 8886626, 220336, 391190, 521407, 700527 #### [facility] [address] [place] [address] 15233 Hi Teacher: Robert Ybarra MD RBC 3.38 x10 Low 4.20-5.40 [facility] Comment on above: Result Comment: Note : RBC morphology is normal unless otherwise stated. Evaluation performed only if differential is requested. Performed By: #### C D:[id number], 6277512, 108250, 978522, 095765, 388057 #### [facility] [address] [place] [address] 33261 Hi Teacher: Robert Ybarra MD WBC 13.8 x10 High 4.5-11.0 [facility] Comment on above: Performed By: #### C D:[id number], 8543221, 786742, 444712, 940630, 405997 #### [facility] [address] [place] [address] 80308 Hi Teacher: Robert Ybarra MD COMPMETAon 12-04-2021 Albumin [Mass/Vol] 2.9 g/dL Low 3.4-5.0 [facility] Comment on above: Performed By: #### C D:[id number], 5746910, 898728, 604259, 054520, 303092 #### [facility] [address] [place] [address] 05953 Hi Teacher: Robert Ybarra MD Albumin/Globulin [Mass ratio] 1.2 {ratio} Normal [facility] Comment on above: Performed By: #### C D:[id number], 4614000, 653246, 550317, 607903, 331390 #### [facility] [address] [place] [address] 92053 Hi Teacher: Robert Ybarra MD Alk Phos 58 unit/L Normal 45-117 [facility] Comment on above: Performed By: #### C D:561111653, 0931960, 008428, 776075, 838870, 846803 #### [facility] [address] [place] [address] 24609 Hi Teacher: Robert Ybarra MD Bilirubin [Mass/Vol] 0.25 mg/dL Normal 0.20-1.00 [facility] Comment on above: Result Comment: Use of this assay is not recommended for patients undergoing treatment with eltrombopag due to the potential for falsely elevated results. Performed By: #### C D:769703538, 9817994, 730865, 051489, 630360, 379519 #### [facility] [address] [place] [address] 47940 Hi Teacher: Robert Ybarra MD Calcium [Mass/Vol] 8.5 mg/dL Normal 8.5-10.5 [facility] Comment on above: Performed By: #### C D:[id number], 2000108, 009225, 068135, 620729, 862223 #### [facility] [address] [place] [address] 18263 Hi Teacher: Robert Ybarra MD Chloride [Moles/Vol] 106 mmol/L Normal 100-109 [facility] Comment on above: Performed By: #### C D:283136248, 7957798, 639364, 331049, 081007, 829166 #### [facility] [address] [place] [address] 50349 Hi Teacher: Robert Ybarra MD CO2 [Moles/Vol] 22.7 mmol/L Normal 21.0-32.0 [facility] Comment on above: Performed By: #### C D:546134054, 8153898, 353926, 284260, 264668, 016070 #### [facility] [address] [place] [address] 86496 Hi Teacher: Robert Ybarra MD Creatinine [Mass/Vol] 1.3 mg/dL High 0.6-1.0 [facility] Comment on above: Performed By: #### C D:934362411, 8505909, 924772, 451749, 868423, 579982 #### [facility] [address] [place] [address] 20830 Hi Teacher: Robert Ybarra MD GFR AA 46 Normal [facility] Comment on above: Result Comment: Afri can [place] GFR Calc Medical judgement is necessary to [...] for drug dosing. Performed By: #### C D:[id number], 9467639, 423895, 332645, 295418, 994564 #### [facility] [address] [place] [address] 0556230 Hi Teacher: Robert Ybarra MD Globulin (S) [Mass/Vol] 2.4 g/dL Normal [facility] Comment on above: Performed By: #### C D:134541986, 1534395, 173782, 566589, 589995, 303099 #### [facility] [address] [place] [address] 44130 Hi Teacher: Robert Ybarra MD Glomerular Filtration Rate 38 mL/min/1.73m? Normal [facility] Comment on above: Result Comment: Non GFR [...] for drug dosing. Performed By: #### C D:502477405, 4305358, 875644, 970544, 024382, 895575 #### [facility] [address] [place] [address] Hi Teacher: Robert Ybarra MD Glucose [Mass/Vol] 186 mg/dL High 72-100 [facility] Comment on above: Result Comment: Shireen puncture should occur prior to sulfasalazine administration due to the potential for falsely depressed results. Venipuncture should occur prior to sulfapyridine administration due to the potential falsely elevated results. Baseline assay values before administration of sulfasalazine and sulfapyridine therapy would not be affected. Performed By: #### C D:[id number], 2503779, 162598, 539218, 443944, 074542 #### [facility] [address] [place] [address] 55044 Hi Teacher: Robert Ybarra MD GOT 123 unit/L High 15-37 [facility] Comment on above: Result Comment: revi ewed Venipuncture should occur prior to sulfasalazine and/or sulfapyridine administration due to the potential for falsely depressed results. Baseline assay values before administration of sulfasalazine and sulfapyridine therapy would not be affected. Performed By: #### C D:[id number], 3625650, 316348, 203800, 555852, 684524 #### [facility] [address] [place] [address] 47590 Hi Teacher: Robert Ybarra MD GPT 92 unit/L High 13-56 [facility] Comment on above: Result Comment: revi ewed Venipuncture should occur prior to sulfasalazine and/or sulfapyridine administration due to the potential for falsely depressed results. Baseline assay values before administration of sulfasalazine and sulfapyridine therapy would not be affected. Performed By: #### C D:[id number], 3097279, 282993, 360460, 703232, 282662 #### [facility] [address] [place] [address] 08399 Hi Teacher: Robert Ybrara MD Osmolality [Osmolality] 289 mosm/kg Normal 275-295 [facility] Comment on above: Performed By: #### C D:534561788, 8053157, 697653, 400112, 959106, 846334 #### [facility] [address] [place] [address] 42922 Hi Teacher: Robert Ybarra MD Potassium [Moles/Vol] 4.3 mmol/L Normal 3.5-5.1 [facility] Comment on above: Performed By: #### C D:358408504, 9543530, 101289, 372244, 046271, 276276 #### [facility] [address] [place] [address] Hi Teacher: Robert Ybarra MD Protein [Mass/Vol] 5.3 g/dL Low 6.0-8.5 [facility] Comment on above: Performed By: #### C D:068912863, 2296791, 245595, 237755, 420917, 638233 #### [facility] [address] [place] [address] 75080 Hi Teacher: Robert Ybarra MD Sodium [Moles/Vol] 137 mmol/L Normal 135-145 [facility] Comment on above: Performed By: #### C D:341269223, 4676136, 281725, 873450, 051911, 809199 #### [facility] [address] [place] [address] 17877 Hi Teacher: Robert Ybarra MD Urea nitrogen [Mass/Vol] 42 mg/dL High 10-20 [facility] Comment on above: Performed By: #### C D:[id number], 1683993, 150833, 497934, 694752, 164466 #### [facility] [address] [place] [address] 57746 Hi Teacher: Robert Ybarra MD Urea nitrogen/Creatinine [Mass ratio] 31.8 mg/mg Normal [facility] Comment on above: Performed By: #### C D:041305804, 6757584, 427921, 444587, 332941, 468633 #### [facility] [address] [place] [address] 01040 Hi Teacher: Robert Ybarra MD CPKon 12-04-2021 CPK 3684 unit/L Critically abnormal 26-192 [facility] Comment on above: Result Comment: Crit ical Result(s) called at: 17:08:41 on 12/04/2021 by: Kp [place] rechecked, RBR to: TC Performed By: #### C D:[id number], 0973969, 819231, 881908, 265850, 397630 #### [facility] [address] [place] [address] Hi Teacher: Robert Ybarra MD CPK 2217 unit/L Critically abnormal [address] [place] [address] Comment on above: Result Comment: Crit ical Result(s) called at: 04:10:50 on 12/04/2021 by: Byron Bang rechecked, RBR to: SF&XA&&XA&reviewed Performed By: #### C D:[id number], 6254388, 620613, 991206, 676820, 320813 #### [facility] [address] [place] [address] Hi Teacher: Robert Ybarra MD CPK 926 unit/L High [address] [place] [address] Comment on above: Performed By: #### 1 76774 ####[facility] [address] [place] [address] Medical Director: Robert Ybarra MD Consult Reporton 12-04-2021 Consult Report Patient: YUSUF MEDINA Age: 85 years Sex: Female : 1935 Associated Diagnoses: None Author: YENNY HODGE, [facility] Consult Note IMPRESSION: Mechanical fall. Rhabdomyolysis Type II DC elevated troponin without ACS Afib with slow [...] MG TAB 650 mg 2 tabs, ORAL, [id number] ACETAMINOPHEN 325 MG TAB 650 mg 2 tabs, ORAL, [id number] DEXTROSE 50% 50ML SYRINGE/VIAL 12.5 g 25 mL, IV Push, PRN DEXTROSE 50% 50ML SYRINGE/VIAL 25 g 50 mL, IV Push, PRN GLUCAGON 1MG INJ 1 mg, IM, PRN GLUCOSE GEL 15GM/42ML 15 g 1 packets, ORAL, PRN GLUCOSE GEL 15GM/42ML 30 g 2 packets, ORAL, PRN ONDANSETRON=ZOFRAN INJ 4 mg 2 mL, IV Push, [id number] Allergies (1) Active Reaction No Known Allergies [...] 13:00) Heart Rate Peripheral 77 bpm (DEC 04 14:00) Resp Rate H 26br/min (DEC 04 14:00) [...] available. BNP No qualifying data available. Normal [facility] Consult Report Patient: YUSUF MEDINA Age: 85 years Sex: Female : 1935 Associated Diagnoses: None Author: ERIC DENTON MD History of Present Illness 85-year-old lady. Admitted 12/03/2021 Fell. Also confused. History was limited also because of language barrier. Apparently lives alone. Apparently had gone to the chicken coop to pickle sorter eggs. She fell. Unknown why she fell [...] is able to speak little bit of Turkish. Her son lives in the [facility]. She lives alone. She said she went to pickle sorter eggs in the chicken coop and there [...] MG TAB 650 mg 2 tabs, ORAL, [id number] ACETAMINOPHEN 325 MG TAB 650 mg 2 tabs, ORAL, [id number] DEXTROSE 50% 50ML SYRINGE/VIAL 12.5 g 25 mL, IV Push, PRN DEXTROSE 50% 50ML SYRINGE/VIAL 25 g 50 mL, IV Push, PRN GLUCAGON 1MG INJ 1 mg, IM, PRN GLUCOSE GEL 15GM/42ML 15 g 1 packets, ORAL, PRN GLUCOSE GEL 15GM/42ML 30 g 2 packets, ORAL, PRN ONDANSETRON=ZOFRAN INJ 4 mg 2 mL, IV Push, [id number] PERFLUTREN 2 ML INJ 2 ML, IV [...] language were okay. She spoke in broken Turkish. Good eye contact. Followed commands. She knew [...] Glucose Random (more content not included)... Normal [facility] Consult Report Patient: YUSUF MEDINA Age: 85 [...] Tylenol: 650 mg = 2 tabs, ORAL, [id number], PRN: Mild Pain Tylenol: 650 mg = 2 tabs, ORAL, [id number], PRN: Temperature Above 102 Zofran: 4 mg = 2 mL, IV Push, [id number], PRN: Nausea/Vomiting glucagon: 1 mg, IM, PRN, [...] MG TAB 650 mg 2 tabs, ORAL, [id number] ACETAMINOPHEN 325 MG TAB 650 mg 2 tabs, ORAL, [id number] DEXTROSE 50% 50ML SYRINGE/VIAL 12.5 g 25 mL, IV Push, PRN DEXTROSE 50% 50ML SYRINGE/VIAL 25 g 50 mL, IV Push, PRN GLUCAGON 1MG INJ 1 mg, IM, PRN GLUCOSE GEL 15GM/42ML 15 g 1 packets, ORAL, PRN GLUCOSE GEL 15GM/42ML 30 g 2 packets, ORAL, PRN ONDANSETRON=ZOFRAN INJ 4 mg 2 mL, IV Push, [id number] PERFLUTREN 2 ML INJ 2 ML, IV [...] No activ (more content not included)... Normal [facility] ED Discharge Educationon ED Discharge Education Normal So [facility] ED Patient Summaryon 022 ED Patient Summary [facility] Emergency Department Discharge Instructions [address] [place] [address] \\.br\\(Patient Copy)\\.br\\ \\.br\\Name: YUSUF MEDINA : 1935 \\.br\\Allergies: No Known Allergies\\.br\\Diagnosi s: Diagnoses This Visit\\.br\\ Abrasion of right elbow (S50.311A)\\.br\\ acute Hypothermia (T68.XXXA)\\.br\\ Contusion of right thigh (S70.11XA)\\.br\\ Fall ([id number])\\.br\\ Hypothermia due to exposure ([id number])\\.br\\\\ .br\\\\.br\\ \\.br\\ Visit Date: 12/03/2021 19:54:53 \\.br\\ Current Date Time: 12/04/2021 01:06:15 \\.br\\Address: [address] [place] [address] \\.br\\ \\.br\\ \\.br\\Primary Care Provider: \\.br\\Name: RADHA CRAMER\\.br\\ \\.br\\ \\.br\\Emergency Department Care Providers: \\.br\\ Primary Physician: IDA ALMODOVAR MD \\.br\\ \\.br\\ \\.br\\\\.br\\Thank you for choosing [facility] for your emergency care. You are very important to us. Our goal is to demonstrate our high quality medical care, and provide you with a very good patient experience.\\.br\\\\.br\\Y ou may receive a survey about our service. Please take the time to complete the survey and return it so we can continue to enhance our service.\\.br\\\\.br\\Than k you again for allowing the [facility] Emergency Department to care for your medical needs. If you have questions about your care or follow up information please contact us at [phone].\\.br\\\\.br \\ Follow-Up Instructions\\.br\\ \\.b r\\YUSUF MEDINA has been given these follow-up instructions:\\.br\\\\.br \\Patient Education Materials\\.br\\ \\.br\\YUSUF RUDD has been given the following patient education materials:\\.br\\\\.br\\ \\.br\\BEFORE YOU LEAVE\\.br\\\\.br\\Set up your [facility] [employer] account!\\.br\\ \\.br\\[employer] is a secure, online health management tool that connects you to portions of your hospital-based electronic medical record, allowing you to see test results, manage appointments, access discharge care instructions and much more.\\.br\\ \\.br\\You can access [employer] from a computer, tablet or smartphone. Enrollment/registratio n is required. If you do not have a [employer] account, please provide us with an email address before you leave so that we may set up an account for you.\\.br\\ \\.br\\New to [employer]!\\.br\\You may now securely connect some of the health management apps you use (e.g., fitness trackers, dietary trackers, etc.) to your health record in [facility] [employer]. This new feature provides expanded access to your health and wellness data, which will help you and your care team make informed decisions about your health care. \\.br\\If you are interested in using a health management gordo not currently connected to [employer], contact a [employer]ater at [phone] or [email or web address]. We will determine if the gordo meets the technical requirements to connect to [facility] [employer] and assure the security of your private health information.\\.br\\ \\.br\\ Medication Information\\.br\\ \\.br \\YUSUF MEDINA has been given the following medication information:\\.br\\Only Take The Medicines On This List. \\.br\\Keep This List and Bring It To Your Next Appointment. \\.br\\Medicines To Take At Home: \\.br\\ Medicine Name\\.br\\ (Generic Name) Amount to Take How to Take it How Often to Take it Additional Instructions Next Dose Due \\.br\\ Prevacid 30 mg oral delayed release capsule\\.br\\(lansopraz ole) 30 mg By Mouth DAILY \\.br\\\\.br\\Understandin g your home medicine is important to [...] list with you to all follow up appointments.\\.br\\ \\.br\\If you or a loved one is struggling with a mental health or substance abuse issue, please call [facility] at [phone] or the National Suicide Prevention Lifeline at .\\.br\\ \\.br\\\\.br\\ \\.br\\ \\.br\\I, YUSUF MEDINA, have received the follow-up provider(s) list, medication information and patient education materials/instructions and have verbalized understanding.\\.br\\ \\.br\\ \\.br\\Patient Signature \\.br\\Kalen e \\.br\\Leif e \\.br\\ \\.br\\ \\.br\\ Provider Signature \\.br\\Kalen e \\.br\\Leif e Normal [facility] ED Physician Reporton 2021 ED Physician Report [...] 20:47:00, rate 37, No ST-T changes, normal MT & QRS intervals, EP Interp, The Rhythm [...] 30.4 seconds NORMAL WBC 22.6 x106/uL LOW \\.br\\ HGB 10.1 g/dL LOW \\.br\\ HCT 31.2 % LOW \\.br\\ MCV 90.9 fL NORMAL \\.br\\ MCH 29.6 pg NORMAL \\.br\\ MCHC 32.6 g/dL NORMAL \\.br\\ RDW 14.6 HI \\.br\\ Platelet 347 x1000 NORMAL \\.br\\ MPV 6.7 fL LOW \\.br\\ Nucleated RBC 0 /100WBC NA \\.br\\ Scan Differential Diff Scd \\.br\\ Lymph % 24.2 % NA \\.br\\ [place] % 3.7 % NA \\.br\\ Neutrophil % 70.8 % NA \\.br\\ Eosin % 0.9 % NA \\.br\\ Basos % 0.4 % NA \\.br\\ Lymph Count 5.46 x1000 HI \\.br\\ [place] Count 0.84 x1000 NORMAL \\.br\\ Neutrophil Count (ANC) 15.99 x1000 HI \\.br\\ Eos Count 0.21 x1000 NORMAL \\.br\\ Baso Count 0.09 x1000 NORMAL \\.br\\12/03/2021 20:06 EST BUN, I-Stat 43 mg/dL HI \\.br\\ Na, I-Stat 134 mmol/L LOW \\.br\\ K, I-Stat 5.2 mmol/L HI \\.br\\ CL, I-Stat 104 mmol/L NORMAL \\.br\\ CO2, I-Stat 21 mmol/L LOW \\.br\\ Glucose, I-Stat 268 mg/dL H (more content not included)... Normal [facility] ED Progress Noteon ED Progress Note 12/03/215 PT TO ROOM 12 ARRIVED BY SQUAD TRAUMA CALLED FROM FIELD, SEE PAPER CHART FOR INFO. Normal [facility] HEMOon 12-04-2021 DIFF? No Normal [facility] Comment on above: Performed By: #### 1 94435, 368040, 127203, 9441897 ####[facility] [address] [place] [address] Medical Director: Robert Ybarra MD Erythrocyte distribution width (RBC) [Ratio] 14.7 % High 11.5-14.5 [facility] Comment on above: Performed By: #### 1 79350, 798027, 962685, 9330763 ####[facility] [address] [place] [address] Medical Director: Robert Ybarra MD Hematocrit (Bld) [Volume fraction] 30.7 % Low 36.0-46.0 [facility] Comment on above: Performed By: #### 1 92809, 175078, 120081, 4303946 ####[facility] [address] [place] [address] Medical Director: Robert Ybarra MD Hemoglobin (Bld) [Mass/Vol] 10.4 g/dL Low 12.0-16.0 [facility] Comment on above: Performed By: #### 1 , 914852, 508601, 0628736 ####[facility] [address] [place], [place] [id number]) [phone] Director: Robert Ybarra MD Instr WBC 10.1 Normal [facility] Comment on above: Performed By: #### 1 , 039832, 033112, 2495968 ####[facility] [address] [place], [place] [address]) [phone] Director: Robert Ybarra MD MCH (RBC) [Entitic mass] 30.2 pg Normal 27.0-34.0 [facility] Comment on above: Performed By: #### 1 , 399749, 540133, 5431152 ####[facility] [address] [place] [id number]) [phone] Director: Robert Ybarra MD MCHC (RBC) [Mass/Vol] 33.9 g/dL Normal 32.0-37.0 [facility] Comment on above: Performed By: #### 1 , 540331, 612947, 6933778 ####[facility] [address] [place], [place] [address]) [phone] Director: Robert Ybarra MD MCV (RBC) [Entitic vol] 89.3 fL Normal 80.0-100.0 [facility] Comment on above: Performed By: #### 1 , 371093, 909075, 5635540 ####[facility] [address] [place], [place] [address]) [phone] Director: Robert Ybarra MD Nucleated RBC 0 /100WBC Normal [facility] Comment on above: Performed By: #### 1 , 519921, 109012, 6882220 ####[facility] [address] [place] [address] Medical Director: Robert Ybarra MD Platelet 310 x1000 Normal 150-450 [facility] Comment on above: Performed By: #### 1 41399, 341392, 592898, 9316805 ####[facility] [address] [place] [address] Medical Director: Robert Ybarra MD Platelet mean volume (Bld) [Entitic vol] 7.2 fL Low 7.4-10.4 [facility] Comment on above: Performed By: #### 1 16766, 533162, 752816, 6537236 ####[facility] [address] [place] [address] Medical Director: Robert Ybarra MD RBC 3.44 x10 Low 4.20-5.40 [facility] Comment on above: Result Comment: Note : RBC morphology is normal unless otherwise stated. Evaluation performed only if differential is requested. Performed By: #### 1 10546, 688963, 979967, 1781322 ####[facility] [address] [place] [address] Medical Director: Robert Ybarra MD WBC 10.1 x10 Normal 4.5-11.0 [facility] Comment on above: Performed By: #### 1 41213, 381245, 189847, 6742380 ####[facility] [address] [place] [address] Medical Director: Robert Ybarra MD HGB A1Con 12-04-2021 HbA1c (Bld) [Mass fraction] 6.7 % Normal [facility] Comment on above: Result Comment: Refe rence Range: Diabetic Greater than or equal to 6.5 % Prediabetic 5.7?6.4 % Normal Less than 5.7 % Performed By: #### 1 [id number] ####[facility] [address] [place] [address] Medical Director: Robert Ybarra MD IRON GROUPon 12-04-2021 Iron [Mass/Vol] 36 ug/dL Low 40-170 [facility] Comment on above: Result Comment: Resu lts may be inaccurate if performed within 14 days of IV iron dextran administration. Performed By: #### 1 72554, 388514, 729676, [id number] ####[facility] [address] [place] [address] Medical Director: Robert Ybarra MD Saturation 9.8 % Low 20.0-50.0 [facility] Comment on above: Performed By: #### 1 76825, 672630, 730283, 7482857 ####[facility] [address] [place] [address] Medical Director: Robert Ybarra MD TIBC 367 ug/dl Normal 250-450 [facility] Comment on above: Result Comment: Resu lts may be inaccurate if performed within 14 days of IV iron dextran administration. Performed By: #### 1 56658, 646410, 878603, 6296151 ####[facility] [address] [place] [address] Medical Director: Robert Ybarra MD MG LEVELon 12-04-2021 Magnesium [Mass/Vol] 1.6 mg/dL Normal 1.6-2.6 [facility] Comment on above: Performed By: #### C D:[id number], 1467405, 125596, 987614, 394683, 783781 #### [facility] [address] [place] [address] Hi Teacher: Robert Ybarra MD Nursing Clinical Noteon 11-15 [...] at all times. Hourly rounding completed. Normal [facility] Nursing Clinical Note got report from ED [...] 37.5, bear hugger is still on. Normal [facility] POC Glucoseon 12-04-2021 Glucose [Mass/Vol] 152 mg/dL High 72-100 [facility] Comment on above: Performed By: #### C D:[id number], 8844660, 122626, 629572, 031220, 729207 #### [facility] [address] [place] [address] Hi Teacher: Robert Ybarra MD Glucose [Mass/Vol] 177 mg/dL High 72-100 [facility] Comment on above: Performed By: #### C D:[id number], 8095151, 461119, 345346, 899605, 930343 #### [facility] [address] [place] [address] Hi Teacher: Robert Ybarra MD Progress Note-Physicianon Progress Note-Physician [...] BMP in 24 hrs. Gertrudis Beckford DO Ripsaw Matcher Normal [facility] Progress Note-Physician Patient: YUSUF MEDINA Age: 85 years Sex: Female : 1935 Associated Diagnoses: Abrasion of right elbow; acute Hypothermia; Contusion of right thigh; Fall; Hypothermia due to exposure; Chronic kidney disease (CKD), stage III (moderate); Diabetes mellitus type II, controlled Author: ZOHAIB HODGE, NIGHAT Archibald Subjective The patient reports he feels back to normal and wants to go home. She does not consent to short-term usp facility placement. The family will be available to stay with her until she completely recovered with son arriving from [place] this afternoon. Objective Vital Signs (last 24 hrs) Last Charted Temp Rectal 37.8 degC (DEC 04 13:00) Heart Rate Peripheral 77 bpm (DEC 04 14:00) Resp Rate H 26br/min (DEC 04 14:00) SBP 124 mmHg (DEC 04 14:00) DBP L 45mmHg (DEC 04 14:00) BMI 23.87 (DEC 04 04:45) General: Alert [...] Plan Diagnosis Abrasion of right elbow - [id number] S50.311A, Emergency medicine, Medical. Acute Hypothermia - JOE59-NP T68.XXXA, Emergency medicine, Medical. Contusion of right thigh - VTY34-JV S70.11XA, Emergency medicine, Medical. Fall - PNED [id number], Medical. Hypothermia due to exposure - PNED [id number], Medical. She has recovered from hypothermic episode and is now at normal baseline mental status and does not consent to usp facility placement. She will be discharged to home with home health care and family will monitor condition and safety.. Diagnosis Chronic kidney disease (CKD), stage III (moderate) - [id number]-[id number] N18.30, Medical. The patient's creatinine level is at their normal baseline. There is no significant changes in the patient's GFR. The patient's present medications will be continued. The patient's renal function will be monitored.. Diagnosis Diabetes mellitus type II, controlled - LUZ92-CQ E11.9, Medical. The patient's blood sugars are adequately controlled. The present medications will be continued, with glucometer checks before meals and at bedtime and sliding scale coverage.. Education and Follow-up: Discharge Planning: Plan to discharge ( To home, Total time that I spent on this patient's discharge is greater than 30 minutes; 32minutes total. ). Normal [facility] T4on 12-04-2021 T4 [Mass/Vol] 9.9 ug/dL Normal 4.5-10.9 [facility] Comment on above: Result Comment: Shireen puncture should occur prior to sulfasalazine administration due to the potential for falsely elevated results. Baseline assay values before administration of sulfasalazine and sulfapyridine therapy would not be affected. Performed By: #### C D:[id number], 9471051, 665390, 740153, 774905, 585711 #### [facility] [address] [place] [address] Hi Teacher: Robert Ybarra MD TROPONIN HS 2HRon 12-04-2021 Delta Troponin 2 Hr 39 pg/mL High 0-14 [facility] Comment on above: Result Comment: The term acute myocardial infarction should be used when there is acute myocardial injury with clinical evidence of acute myocardial ischemia and the rise or fall of serial Troponin HS values (delta troponin) greater than or equal to 15 pg/mL with at least one Troponin HS value above the 99th percentile reference range Performed By: #### C D:[id number] #### [facility] [address] [place] [address] Hi Teacher: Robert Ybarra MD Troponin HS 2 Hr 105 pg/mL High 3-54 [facility] Comment on above: Performed By: #### C D:[id number] #### [facility] [address] [place] [address] Hi Teacher: Robert Ybarra MD TROPONIN HS 6HRon 12-04-2021 Delta Troponin 6 Hr 232 pg/mL High 0-14 [facility] Comment on above: Result Comment: The term acute myocardial infarction should be used when there is acute myocardial injury with clinical evidence of acute myocardial ischemia and the rise or fall of serial Troponin HS values (delta troponin) greater than or equal to 15 pg/mL with at least one Troponin HS value above the 99th percentile reference range Performed By: #### C D:[id number], 3911686, 972957, 712304, 228335, 571372 #### [facility] [address] [place] [address] Hi Teacher: Robert Ybarra MD Troponin HS 6 Hr 337 pg/mL Critically abnormal -54 [facility] Comment on above: Result Comment: Crit ical Result(s) called at: 04:06:04 on 12/04/2021 by: REKHA Be to: SF Performed By: #### C D:[id number], 5337081, 311545, 803675, 402655, 481270 #### [facility] [address] [place] [address] Hi Teacher: Robert Ybarra MD TSHon 12-04-2021 TSH Qn 0.53 m[IU]/L Normal 0.36-3.74 [facility] Comment on above: Result Comment: High levels of serum biotin may interfere with this test. Performed By: #### C D:[id number], 6790135, 798202, 933249, 256733, 014850 #### [facility] [address] [place] [address] Hi Teacher: Robert Ybarra MD U DOA WITH FENTANYLon 2021 Amphetamines, U Negative Normal [facility] Comment on above: Result Comment: Urin e [...] non-medical purposes. Urine for Drugs of Abuse [facility] Levels: Barbiturate 200 ng/ml PCP 25 ng/ml Cocaine 300 ng/ml Opiates 2000 ng/ml Amphetamines 1000 ng/ml Benzodiazepines 200 ng/ml THC 50 ng/ml EXTC 500 ng/ml Performed By: #### C D:[id number] ####[facility] [address] [place] [address] Medical Director: Robert Ybarra MD Barbituates, U Negative Normal [facility] Comment on above: Performed By: #### C D:[id number] ####[facility] [address] [place] [address] Medical Director: Robert Ybarra MD Benzodiazepines, U Negative Normal [facility] Comment on above: Performed By: #### C D:[id number] ####[facility] [address] [place] [address] Medical Director: Robert Ybarra MD Cocaine, U Negative [facility] Comment on above: Performed By: #### C D:[id number] ####[facility] [address] [place], [place] [address]) [phone] Director: Robert Ybarra MD Ecstasy, Negative [facility] Comment on above: Performed By: #### C D:[id number] ####[facility] [address] [place], [place] [id number]) [phone] Director: Robert Ybarra MD Fentanyl, [facility] Comment on above: Result Comment: Urin e for Fentanyl provides preliminary test results only. A more specific alternate method must be used in order to obtain a confirmed analytical result. Gas chromatography/mass spectrometry is the preferred confirmatory method. Clinical consideration and professional judgment should be applied to any drug of abuse test result, particularly when preliminary positive results are used. Results should not be used for non-medical purposes. Urine Fentanyl [facility] Level: 1 ng/ml Performed By: #### C D:[id number] ####[facility] [address] [place], [place] [id number]) [phone] Director: Robert Ybarra MD Opiates, [facility] Comment on above: Performed By: #### C D:[id number] ####[facility] [address] [place] [address] Medical Director: Robert Ybarra MD PCP, [facility] Comment on above: Performed By: #### C D:[id number] ####[facility] [address] [place], [place] [address]) [phone] Director: Robert Ybarra MD THC, [facility] Comment on above: Performed By: #### C D:[id number] ####[facility] [address] [place], [place] [address]) [phone] Director: Robert Ybarra MD UAon 12-04-2021 Appearance, U Hazy Normal [facility] Comment on above: Performed By: #### C D:[id number], 8357655, 573924, 779025, 726333, 362483 #### [facility] [address] [place] [address] Hi Teacher: Robert Ybarra MD Bacteria, U Occasional Normal [facility] Comment on above: Performed By: #### C D:[id number], 9739811, 403613, 662531, 635417, 493299 #### [facility] [address] [place] [address] Hi Teacher: Robert Ybarra MD Bilirubin, U Negative Normal Negative [facility] Comment on above: Performed By: #### C D:[id number], 1992107, 923950, 494198, 088541, 870957 #### [facility] [address] [place] [address] Hi Teacher: Robert Ybarra MD Blood, U Large Abnormal Negative [facility] Comment on above: Performed By: #### C D:[id number], 6374417, 894147, 615776, 604189, 816261 #### [facility] [address] [place] [address] Hi Teacher: Robert Ybarra MD Color, U Yellow Normal [facility] Comment on above: Performed By: #### C D:[id number], 8885371, 668497, 302956, 931117, 314828 #### [facility] [address] [place] [address] Hi Teacher: Robert Ybarra MD Glucose Qual, U 150 mg/dl Abnormal Negative [facility] Comment on above: Performed By: #### C D:[id number], 1361121, 691589, 781663, 524833, 113386 #### [facility] [address] [place] [address] Hi Teacher: Robert Ybarra MD Ketones, U Trace Abnormal Negative [facility] Comment on above: Performed By: #### C D:536013517, 8131447, 708466, 695678, 557244, 432667 #### [facility] [address] [place] [address] Hi Teacher: Robert Ybarra MD Leukocyte Esterase, U Negative Normal Negative [facility] Comment on above: Performed By: #### C D:[id number], 7352907, 076256, 426330, 034668, 921983 #### [facility] [address] [place] [address] Hi Teacher: Robert Ybarra MD Mucous, U Occasional Normal [facility] Comment on above: Performed By: #### C D:[id number], 4602342, 353244, 338076, 938852, 205148 #### [facility] [address] [place] [address] Hi Teacher: Robert Ybarra MD Nitrite, U Negative Normal Negative [facility] Comment on above: Performed By: #### C D:[id number], 2651108, 670566, 331980, 417136, 795343 #### [facility] [address] [place] [address] Hi Teacher: Robert Ybarra MD pH, U 5.0 Normal 4.5-8.0 [facility] Comment on above: Performed By: #### C D:[id number], 0402290, 379744, 543367, 323375, 131392 #### [facility] [address] [place] [address] Hi Teacher: Robert Ybarra MD Protein, U Negative Normal Negative [facility] Comment on above: Performed By: #### C D:[id number], 3172384, 968949, 644797, 780484, 607985 #### [facility] [address] [place] [address] Hi Teacher: Robert Ybarra MD RBC/HPF, U 2 #/HPF Normal 0-3 [facility] Comment on above: Performed By: #### C D:[id number], 1923924, 947835, 120622, 897543, 981063 #### [facility] [address] [place] [address] Hi Teacher: Robert Ybarra MD Specific [place], U 1.009 Normal 1.001-1.035 [facility] Comment on above: Performed By: #### C D:[id number], 6269801, 429274, 769426, 321870, 042711 #### [facility] [address] [place] [address] Hi Teacher: Robert Ybarra MD Squamous Epithelial Cells, U 1 #/HPF Normal [facility] Comment on above: Performed By: #### C D:[id number], 1020019, 957126, 067269, 680408, 793423 #### [facility] [address] [place] [address] Hi Teacher: Robert Ybarra MD U MICRO Indicated Normal [facility] Comment on above: Performed By: #### C D:[id number], 4848152, 064615, 484160, 992864, 609897 #### [facility] [address] [place] [address] Hi Teacher: Robert Ybarra MD Urobilinogen Qual, U <2.0 mg/dl Normal <2.0 mg/dl [facility] Comment on above: Result Comment: EU/d l and mg/dl are equivalent units. Performed By: #### C D:[id number], 4265640, 416856, 063236, 053292, 926073 #### [facility] [address] [place] [address] Hi Teacher: Robert Ybarra MD WBC/HPF, U 2 #/HPF Normal 0-5 [facility] Comment on above: Performed By: #### C D:[id number], 8375738, 727360, 807102, 151003, 376057 #### [facility] [address] [place] [address] Hi Teacher: Robert Ybarra MD VIT D 25 LEVELon 12-04-2021 Vit D 25 16 ng/mL Normal [facility] Comment on above: Result Comment: Less than 20 ng/ml Deficient 20-30 ng/ml Insufficient 30-100 ng/ml Sufficient Greater than 100 ng/ml Potential toxicity Patients who have recently undergone fluorescein dye angiography in the past 48 to 72 hours (or longer if renal insufficient) may have falsely elevated results. Performed By: #### 9 [id number] ####[facility] [address] [place] [address] Medical Director: Robert Ybarra MD XR ELBOW [...] by: Silvia Hill DO 12/03/2021 10:59 PM [employer] Technologist: JUAN PABLO PHILIPPE Dictated By: SILVIA HILL DO Signed By: SILVIA HILL DO Signed Out: 12/03/21 23:59:23 Normal [facility] ALCOHOL SERUMon 12-03-2021 Alcohol, Serum <3 Normal [facility] Comment on above: Result Comment: Note : Alcohol values performed at [facility] are performed on Serum and reported in mg/dl, which is different then the state reporting units of g/dl which is performed on whole blood. Result reporting units are based on test methodology and are not interchangable. Performed By: #### C D:[id number], 5265978, 899785, 222794, 090612, 713455 #### [facility] [address] [place], [place] [address] Hi Teacher: Robert Ybarra MD APTTon 12-03-2021 aPTT Coag (Bld) [Time] 30.4 s Normal 26.0-39.0 So [facility] Comment on above: Performed By: #### C D:[id number], 5782928, 847984, 125219, 910710, 935198 #### [facility] [address] [place], [place] [address] Hi Teacher: Robert Ybarra MD AUTO DIFFon 12-03-2021 Baso Count 0.09 x1000 Normal 0.00-0.20 [facility] Comment on above: Performed By: #### C D:[id number], 6721373, 708557, 236546, 644530, 184155 #### [facility] [address] [place], [place] [address] Hi Teacher: Robert Ybarra MD Basos % 0.4 % Normal [facility] Comment on above: Performed By: #### C D:[id number], 3356022, 662667, 889694, 673594, 656315 #### [facility] [address] [place], [place] [address] Hi Teacher: Robert Ybarar MD Eos Count 0.21 x1000 Normal 0.00-0.50 [facility] Comment on above: Performed By: #### C D:[id number], 4133516, 550731, 702773, 707997, 376492 #### [facility] [address] [place] [address] Hi Teacher: Robert Ybarra MD Eosinophils/100 WBC (Bld) 0.9 % Normal [facility] Comment on above: Performed By: #### C D:939215403, 7947828, 743680, 438653, 213668, 614543 #### [facility] [address] [place] [address] Hi Teacher: Robert Ybarra MD Lymph Count 5.46 x1000 High 1.20-4.80 [facility] Comment on above: Performed By: #### C D:[id number], 5838058, 437858, 718381, 635438, 846978 #### [facility] [address] [place] [address] Hi Teacher: Robert Ybarra MD Lymphocytes/100 WBC (Bld) 24.2 % Normal [facility] Comment on above: Performed By: #### C D:[id number], 1905215, 814117, 849366, 766940, 543704 #### [facility] [address] [place], [place] [address] Hi Teacher: Robert Ybarra MD [place] Count 0.84 x1000 Normal 0.10-1.00 [facility] Comment on above: Performed By: #### C D:[id number], 2056580, 480940, 072856, 839687, 182322 #### [facility] [address] [place] [address] Hi Teacher: Robert Ybarra MD Monocytes/100 WBC (Bld) 3.7 % Normal [facility] Comment on above: Performed By: #### C D:[id number], 5082788, 490791, 106608, 225714, 924092 #### [facility] [address] [place] [address] Hi Teacher: Robert Ybarra MD Neutrophil Count (ANC) 15.99 x1000 High 1.40-8.80 [facility] Comment on above: Performed By: #### C D:[id number], 1652329, 294030, 484533, 935655, 563286 #### [facility] [address] [place], [place] [address] Hi Teacher: Robert Ybarra MD Neutrophils/100 WBC (Bld) 70.8 % Normal [facility] Comment on above: Performed By: #### C D:446297831, 8138273, 077550, 464786, 167457, 108903 #### [facility] [address] [place] [address] Hi Teacher: Robert Ybarra MD Scan Differential Diff Scd Normal [facility] Comment on above: Result Comment: Slid e reviewed by technologist. Performed By: #### C D:[id number], 9257442, 721546, 840828, 552065, 493477 #### [facility] [address] [place] [address] Hi Teacher: Robert Ybarra MD BLD GASon 12-03-2021 MAGGIE TEST Normal [facility] Comment on above: Performed By: #### C D:[id number], 0722443, 750853, 363341, 340225, 072000 #### [facility] [address] [place] [address] Hi Teacher: Robert Ybarra MD Base Excess -11.8 mmol/L [facility] Comment on above: Performed By: #### C D:[id number], 7999649, 268269, 910718, 735830, 464422 #### [facility] [address] [place] [address] Hi Teacher: Robert Ybarra MD ePAP 0 cmH20 [facility] Comment on above: Performed By: #### C D:[id number], 7044713, 751727, 582718, 495934, 301802 #### [facility] [address] [place] [address] Hi Teacher: Robert Ybarra MD FIO2 100 % Normal [facility] Comment on above: Performed By: #### C D:065055461, 2236365, 174346, 434279, 089964, 519942 #### [facility] [address] [place] [address] Hi Teacher: Robert Ybarra MD HCO3 (Bld) [Moles/Vol] 15.5 mmol/L Low 22.0-26.0 S [facility] Comment on above: Performed By: #### C D:[id number], 8455327, 881216, 070451, 651337, 602199 #### [facility] [address] [place] [address] Hi Teacher: Robert Ybarra MD iPAP 0 cmH20 [facility] Comment on above: Performed By: #### C D:[id number], 0003037, 988718, 431020, 685452, 818409 #### [facility] [address] [place], [place] [address] Hi Teacher: Robert Ybarra MD O2 L/M 15.0 [facility] Comment on above: Performed By: #### C D:[id number], 7473831, 389427, 369796, 317146, 370871 #### [facility] [address] [place] [address] Hi Teacher: Robert Ybarra MD Oxygen (Bld) [Partial pressure] 64.6 mm[Hg] Low 80.0-100.0 [facility] Comment on above: Performed By: #### C D:[id number], 1621632, 260411, 590854, 127348, 688137 #### [facility] [address] [place] [address] Hi Teacher: Robert Ybarra MD Oxygen saturation in Blood 86.6 % [facility] Comment on above: Performed By: #### C D:086058537, 9413551, 930284, 713439, 566257, 522603 #### [facility] [address] [place] [address] Hi Teacher: Robert Ybarra MD PCO2 41.0 mmHg Normal 35.0-45.0 [facility] Comment on above: Performed By: #### C D:[id number], 8354312, 373109, 843519, 476538, 663789 #### [facility] [address] [place] [address] Hi Teacher: Robert Ybarra MD PEEP 0.0 cmH20 [facility] Comment on above: Performed By: #### C D:[id number], 8175393, 045936, 352576, 679735, 035169 #### [facility] [address] [place] [address] Hi Teacher: Robert Ybarra MD pH (Bld) 7.196 [pH] Critically abnormal 7.350-7.450 [facility] Comment on above: Result Comment: RESU LTS CALLED WITH READBACK TO DR. SABRINA MOHAN 12/03/2021 21:02:41 EST. Performed By: #### C D:[id number], 1801644, 057994, 199324, 784468, 805640 #### [facility] [address] [place] [address] Hi Teacher: Robert Ybarra MD PO2/FiO2 Ratio 65 Low 300-500 [facility] Comment on above: Performed By: #### C D:097927253, 4861112, 166714, 808003, 998119, 932363 #### [facility] [address] [place] [address] Hi Teacher: Robert Ybarra MD Pressure Support. 0 cmH20 [facility] Comment on above: Performed By: #### C D:[id number], 2093662, 365651, 319169, 234506, 081702 #### [facility] [address] [place] [address] Hi Teacher: Robert Ybarra MD RATE 0 bpm Normal [facility] Comment on above: Performed By: #### C D:[id number], 4711914, 647644, 220410, 009729, 488846 #### [facility] [address] [place] [address] Hi Teacher: Robert Ybarra MD TEMP 37.0 degC Normal <=37.0 [facility] Comment on above: Performed By: #### C D:[id number], 2580947, 484835, 471902, 967114, 455503 #### [facility] [address] [place] [address] Hi Teacher: Robert Ybarra MD Type of Specimen Venous Normal [facility] Comment on above: Result Comment: RR A RT = Right Artery RB ART = Right Brachial Artery LR ART = Left Radial Artery LB ART = Left Brachial Artery RF ART = Right Femoral Artery LF ART = Left Femoral Artery Performed By: #### C D:[id number], 4328362, 625525, 417257, 254504, 986427 #### [facility] [address] [place] [address] Hi Teacher: Robert Ybarra MD Ventilation Mask Normal [facility] Comment on above: Performed By: #### C D:[id number], 2739080, 127454, 681625, 628790, 749541 #### [facility] [address] [place] [address] Hi Teacher: Robert Ybarra MD VT 00 mL Normal [facility] Comment on above: Performed By: #### C D:[id number], 2984633, 222438, 874197, 204288, 180492 #### [facility] [address] [place] [address] Hi Teacher: Robert Ybarra MD COMPMETAon 12-03-2021 Albumin/Globulin [Mass ratio] 1.3 {ratio} Normal [facility] Comment on above: Performed By: #### C D:[id number], 8691164, 652219, 223786, 999456, 617240 #### [facility] [address] [place] [address] Hi Teacher: Robert Ybarra MD GFR AA 36 [facility] Comment on above: Result Comment: Afri can [place] GFR Calc Medical judgement is necessary to [...] for drug dosing. Performed By: #### C D:[id number], 8592540, 496075, 371568, 262713, 093976 #### [facility] [address] [place] [address] Hi Teacher: Robert Ybarra MD Glomerular Filtration Rate 30 mL/min/1.73m? Normal [facility] Comment on above: Result Comment: Non GFR [...] for drug dosing. Performed By: #### C D:[id number], 8452463, 143878, 322939, 088156, 969731 #### [facility] [address] [place] [address] Hi Teacher: Robert Ybarra MD Osmolality [Osmolality] 297 mosm/kg High 275-295 [facility] Comment on above: Performed By: #### C D:[id number], 3110945, 599171, 665408, 986437, 549052 #### [facility] [address] [place] [address] Hi Teacher: Robert Ybarra MD Urea nitrogen/Creatinine [Mass ratio] 27.3 mg/mg Normal [facility] Comment on above: Performed By: #### C D:[id number], 9847318, 446071, 684669, 672512, 096710 #### [facility] [address] [place] [address] Hi Teacher: oRbert Ybarra MD Albumin [Mass/Vol] 3.2 g/dL Low 3.4-5.0 [facility] Comment on above: Performed By: #### C D:[id number], 4824522, 700972, 553714, 069196, 352799 #### [facility] [address] [place] [address] Hi Teacher: Robert Ybarra MD Alk Phos 60 unit/L Normal 45-117 [facility] Comment on above: Performed By: #### C D:[id number], 9304116, 007879, 595618, 498490, 970260 #### [facility] [address] [place] [address] Hi Teacher: Robert Ybarra MD Bilirubin [Mass/Vol] 0.26 mg/dL Normal 0.20-1.00 [facility] Comment on above: Result Comment: Use of this assay is not recommended for patients undergoing treatment with eltrombopag due to the potential for falsely elevated results. Performed By: #### C D:[id number], 3426018, 111860, 665894, 551705, 099402 #### [facility] [address] [place] [address] Hi Teacher: Robert Ybarra MD Calcium [Mass/Vol] 8.9 mg/dL Normal 8.5-10.5 [facility] Comment on above: Performed By: #### C D:[id number], 1709072, 210573, 361813, 320617, 474152 #### [facility] [address] [place] [address] Hi Teacher: Robert Ybarra MD Chloride [Moles/Vol] 105 mmol/L Normal 100-109 [facility] Comment on above: Performed By: #### C D:[id number], 3483417, 245532, 444690, 827450, 245277 #### [facility] [address] [place] [address] Hi Teacher: Robert Ybarra MD CO2 [Moles/Vol] 18.9 mmol/L Low 21.0-32.0 [facility] Comment on above: Performed By: #### C D:[id number], 0977104, 883641, 724089, 962918, 726127 #### [facility] [address] [place] [address] Hi Teacher: Robert Ybarra MD Creatinine [Mass/Vol] 1.6 mg/dL High 0.6-1.0 [facility] Comment on above: Performed By: #### C D:[id number], 6565984, 111619, 817962, 004827, 884257 #### [facility] [address] [place] [address] Hi Teacher: Robert Ybarra MD Globulin (S) [Mass/Vol] 2.4 g/dL Normal [facility] Comment on above: Performed By: #### C D:[id number], 1262181, 556942, 297082, 491484, 481005 #### [facility] [address] [place] [address] Hi Teacher: Robert Ybarra MD Glucose [Mass/Vol] 270 mg/dL High 72-100 [facility] Comment on above: Result Comment: Shireen puncture should occur prior to sulfasalazine administration due to the potential for falsely depressed results. Venipuncture should occur prior to sulfapyridine administration due to the potential falsely elevated results. Baseline assay values before administration of sulfasalazine and sulfapyridine therapy would not be affected. Performed By: #### C D:[id number], 6424234, 047953, 531680, 820571, 003769 #### [facility] [address] [place] [address] Hi Teacher: Robert Ybarra MD GOT 61 unit/L High 15-37 [facility] Comment on above: Result Comment: Resu lts may be increased due to hemolysis. Venipuncture should occur prior to sulfasalazine and/or sulfapyridine administration due to the potential for falsely depressed results. Baseline assay values before administration of sulfasalazine and sulfapyridine therapy would not be affected. Performed By: #### C D:[id number], 5641363, 860064, 952950, 492334, 044421 #### [facility] [address] [place] [address] Hi Teacher: Robert Ybarra MD GPT 49 unit/L Normal 13-56 [facility] Comment on above: Result Comment: Shireen puncture should occur prior to sulfasalazine and/or sulfapyridine administration due to the potential for falsely depressed results. Baseline assay values before administration of sulfasalazine and sulfapyridine therapy would not be affected. Performed By: #### C D:[id number], 6091032, 225153, 608800, 307305, 977525 #### [facility] [address] [place] [address] Hi Teacher: Robert Ybarra MD Potassium [Moles/Vol] 5.5 mmol/L High 3.5-5.1 [facility] Comment on above: Result Comment: Resu lts may be increased due to hemolysis. Performed By: #### C D:[id number], 4862746, 908211, 855849, 225099, 999654 #### [facility] [address] [place] [address] Hi Teacher: Robert Ybarra MD Protein [Mass/Vol] 5.6 g/dL Low 6.0-8.5 [facility] Comment on above: Performed By: #### C D:[id number], 1453987, 001792, 897800, 039365, 166421 #### [facility] [address] [place] [address] Hi Teacher: Robert Ybarra MD Sodium [Moles/Vol] 138 mmol/L Normal 135-145 [facility] Comment on above: Performed By: #### C D:[id number], 7738824, 837847, 462739, 510855, 948788 #### [facility] [address] [place] [address] Hi Teacher: Robert Ybarra MD Urea nitrogen [Mass/Vol] 45 mg/dL High 10-20 [facility] Comment on above: Performed By: #### C D:[id number], 9240887, 243962, 741149, 998698, 689602 #### [facility] [address] [place] [address] Hi Teacher: Robert Ybarra MD CT ABD PELVIS WO [...] by: David Barraza MD 12/03/2021 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 Normal [facility] Comment on above: Order Comment: NO OR [...] by: David Barraza MD 12/03/2021 7:37 PM [employer]IST Technologist: KATJA GARVIN ND Dictated By: DAVID BARRAZA MD Signed By: DAVID BARRAZA MD Signed Out: 12/03/21 20:37:[address] [facility] [address] CERVICAL SPINE WO CONTRAS Ton 12-03-2021 [...] by: David Barraza MD 12/03/2021 7:40 PM [employer] SPECIALIST Technologist: KATJA GARVIN ND Dictated By: DAVID BARRAZA MD Signed By: DAVID BARRAZA MD Signed Out: 12/03/21 20:40:[address] [facility] [address] CHEST WO CONTRSTon 2021 CT CHEST [...] by: David Barraza MD 12/03/2021 7:46 PM [employer]IL AND G[employer] SPECIALIST Technologist: KATJA GARVIN ND Dictated By: DAVID BARRAZA MD Signed By: DAVID BARRAZA MD Signed Out: 12/03/21 20:46:42 Normal [facility] ED Pre-Arrival Formon 2021 ED Pre-Arrival Form Pre-Arrival Summary Name: FREDRICK, Current Date: 12/03/2021 19:55:10 EST Gender: Date of : Age: Pre-Arrival Type: EMS ETA: 12/03/2021 20:08:00 EST Primary Care Physician: Presenting Problem: Pre-Arrival User: Laura Smith RN Referring Source: Location: [address] [place] [address] Emergency Department [address] [place] [address] Notes: Vital Signs: Doctor Call Back: DNR Status: Miscellaneous Issues: Normal [facility] HEMOon 12-03-2021 DIFF? No Normal [facility] Comment on above: Performed By: #### C D:[id number], 2711106, 577120, 462371, 845597, 326218 #### [facility] [address] [place], [place] [address] Hi Teacher: Robert Ybarra MD Nucleated RBC 0 /100WBC Normal [facility] Comment on above: Performed By: #### C D:[id number], 3785066, 914659, 326833, 540865, 659829 #### [facility] [address] [place], [place] [address] Hi Teacher: Robert Ybarra MD [facility] Actions See Notes Abnormal [facility] Comment on above: Result Comment: Scan Slide. Perform manual diff if needed. Scan Slide. Path Review if Required. SNV Performed By: #### C D:[id number], 8098180, 935755, 531782, 964346, 777216 #### [facility] [address] [place] [address] Hi Teacher: Robert Ybarra MD Erythrocyte distribution width (RBC) [Ratio] 14.6 % High 11.5-14.5 [facility] Comment on above: Performed By: #### C D:[id number], 3602154, 516676, 641529, 077423, 222357 #### [facility] [address] [place] [address] Hi Teacher: Robert Ybarra MD Hematocrit (Bld) [Volume fraction] 31.2 % Low 36.0-46.0 [facility] Comment on above: Performed By: #### C D:[id number], 1592736, 513406, 680108, 922010, 000807 #### [facility] [address] [place] [address] Hi Teacher: Robert Ybarra MD Hemoglobin (Bld) [Mass/Vol] 10.1 g/dL Low 12.0-16.0 [facility] Comment on above: Performed By: #### C D:[id number], 3160517, 400178, 716969, 856871, 388955 #### [facility] [address] [place] [address]94 Hi Teacher: Robert Ybarra MD Instr WBC 22.6 Normal [facility] Comment on above: Performed By: #### C D:[id number], 8776412, 748712, 420539, 445073, 126184 #### [facility] [address] [place] [address]13 Hi Teacher: Robert Ybarra MD MCH (RBC) [Entitic mass] 29.6 pg Normal 27.0-34.0 [facility] Comment on above: Performed By: #### C D:[id number], 4488203, 380701, 755448, 623492, 157965 #### [facility] [address] [place] [address] Hi Teacher: Robert Ybarra MD MCHC (RBC) [Mass/Vol] 32.6 g/dL Normal 32.0-37.0 [facility] Comment on above: Performed By: #### C D:[id number], 4310707, 643621, 953480, 098783, 785704 #### [facility] [address] [place] [address] Hi Teacher: Robert Ybarra MD MCV (RBC) [Entitic vol] 90.9 fL Normal 80.0-100.0 [facility] Comment on above: Performed By: #### C D:[id number], 2553951, 708075, 733394, 977583, 045878 #### [facility] [address] [place] [address] Hi Teacher: Robert Ybarra MD MDW 16.08 Normal 13.98-20.00 [facility] Comment on above: Result Comment: MDW Interpretation: [...] risk of Sepsis. Performed By: #### C D:[id number], 0781733, 065901, 110267, 974656, 751142 #### [facility] [address] [place] [address] Hi Teacher: Robert Ybarra MD Platelet 347 x1000 Normal 150-450 [facility] Comment on above: Performed By: #### C D:[id number], 0086015, 296592, 888145, 499515, 683643 #### [facility] [address] [place] [address] 18875 Hi Teacher: Robert Ybarra MD Platelet mean volume (Bld) [Entitic vol] 6.7 fL Low 7.4-10.4 [facility] Comment on above: Performed By: #### C D:[id number], 8534918, 375468, 054723, 622437, 524758 #### [facility] [address] [place] [address]805 Hi Teacher: Robert Ybarra MD RBC 3.43 x10 Low 4.20-5.40 [facility] Comment on above: Result Comment: Note : RBC morphology is normal unless otherwise stated. Evaluation performed only if differential is requested. Performed By: #### C D:[id number], 1664142, 086174, 271932, 395515, 512259 #### [facility] [address] [place], [place] [address] Hi Teacher: Robert Ybarra MD WBC 22.6 x10 High 4.5-11.0 [facility] Comment on above: Performed By: #### C D:[id number], 8931766, 077849, 625742, 182257, 202477 #### [facility] [address] [place] [address]78 Hi Teacher: Robert Ybarra MD I8on 12-03-2021 Anion gap [Moles/Vol] 16 mmol/L Normal 10-20 [facility] Comment on above: Performed By: #### C D:[id number] ####[facility] [address] [place] [id number]) [phone] Director: Robert Ybarra MD Chloride [Moles/Vol] 104 mmol/L Normal 98-109 [facility] Comment on above: Performed By: #### C D:[id number] ####[facility] [address] [place], [place] [address]) [phone] Director: Robert Ybarra MD CO2 [Moles/Vol] 21 mmol/L Low 24-32 [facility] Comment on above: Performed By: #### C D:[id number] ####[facility] [address] [place] [id number]) [phone] Director: Robert Ybarra MD Creatinine [Mass/Vol] 1.7 mg/dL High 0.6-1.3 [facility] Comment on above: Performed By: #### C D:[id number] ####[facility] [address] [place], [place] [address]) [phone] Director: Robert Ybarra MD Glucose [Mass/Vol] 268 mg/dL High 72-110 [facility] Comment on above: Performed By: #### C D:[id number] ####[facility] [address] [place] [address] Medical Director: Robert Ybarra MD Hct, I-Stat 30 %PCV Low 40-54 [facility] Comment on above: Performed By: #### C D:[id number] ####[facility] [address] [place] [address] Medical Director: Robert Ybarra MD Hemoglobin (Bld) [Mass/Vol] 10.2 g/dL Low 14.0-18.0 [facility] Comment on above: Result Comment: The calculation of hemoglobin from hematocrit assumes a normal MCHC. Performed By: #### C D:[id number] ####[facility] [address] [place] [id number]) [phone] Director: Robert Ybarra MD Ionized Calcium, I-Stat 1.24 mmol/L Normal 1.12-1.32 [facility] Comment on above: Performed By: #### C D:[id number] ####[facility] [address] [place], [place] [address]) [phone] Director: Robert Ybarra MD Potassium [Moles/Vol] 5.2 mmol/L High 3.7-5.1 [facility] Comment on above: Performed By: #### C D:[id number] ####[facility] [address] [place], [place] [address]) [phone] Director: Robert Ybarra MD Sodium [Moles/Vol] 134 mmol/L Low 138-146 [facility] Comment on above: Performed By: #### C D:[id number] ####[facility] [address] [place] [id number]) [phone] Director: Robert Ybarra MD Urea nitrogen [Mass/Vol] 43 mg/dL High 8-26 [facility] Comment on above: Performed By: #### C D:[id number] ####[facility] [address] [place] [phone]) [phone] Director: Robert Ybarra MD PT INRon 12-03-2021 INR Coag (PPP) [Relative time] 1.0 {INR} Normal [facility] Comment on above: Result Comment: INR Reference Range: Normal reference range for INR on patients not on anticoagulant therapy: 0.9-1.1 General therapeutic range for patients on anticoagulant therapy: 2.0-3.5 Performed By: #### C D:[id number], 3914718, 603180, 231938, 976557, 782120 #### [facility] [address] [place] [address] Hi Teacher: Robert Ybarra MD Protime Patient 11.7 seconds Normal 9.8-13.4 [facility] Comment on above: Performed By: #### C D:[id number], 5344604, 663049, 265307, 771677, 785126 #### [facility] [address] [place] [address] Hi Teacher: Robert Ybarra MD TROPONIN HS 0HRon 12-03-2021 Troponin HS 0 Hr 66 pg/mL High 3-54 [facility] Comment on above: Performed By: #### C D:[id number], 7328940, 075983, 301601, 798718, 726916 #### [facility] [address] [place] [address] Hi Teacher: Robert Ybarra MD XR CHEST PORTABLEon 12-03-19 [...] by: David Barraza MD 12/03/2021 7:26 PM OIL AND G[employer] SPECIALIST Technologist: CM,SR,RL Dictated By: DAVID BARRAZA MD Signed By: DAVID BARRAZA MD Signed Out: 12/03/21 20:26:51 Normal [facility] XR PELVIS APon 12-03-2021 XR PELVIS AP [...] by: David Barraza MD 12/03/2021 7:26 PM OIL AND GAS SPECIALIST Technologist: CM,SR,RL Dictated By: DAVID BARRAZA MD Signed By: DAVID BARRAZA MD Signed Out: 12/03/21 20:26:00 Normal [facility] pH Venouson 12-03-2021 pH Venous 7.196 Critically abnormal 7.310-7.410 [facility] Comment on above: Result Comment: RESU LTS CALLED WITH READBACK TO DR. SABRINA MOHAN 12/03/2021 21:04:42 EST. Performed By: #### C D:[id number] ####[facility] [address] [place] [address] Medical Director: Robert Ybarra MD XR Shoulder - left 3 Viewson 07-14-2021 IMPRESSION: 1. Advanced glenoid humeral osteoarthritis and chronic rotator cuff arthropathy with increased glenoid humeral joint space narrowing compared to the prior study. Learning And Development Administrator: PSCMary Transcribe Date/Time: Jul 14 2021 9:03A Dictated [...] left upper lung. DIVISION OF RADIOLOGY Provider, [facility] Nancy Rowley - 07/14/2021 * * *Final Report* * [...] space narrowing compared to the prior study. Learning And Development Administrator: [facility] Transcribe Date/Time: Jul 14 2021 9:03A Dictated by : MIRNA VIZCAINO MD This examination was interpreted and the report reviewed and electronically signed by: MIRNA VIZCAINO MD on Jul 14 2021 9:05AM EST [facility] Radiology Study observation (narrative) Mira Miranda XR Shoulder - left 3 ViewsOr dered By: Kalyan Provider on 07-14-2021 [facility] Vital Signs Date Time Vital Sign Value Performing Clinician Facility 02-13-2025 13:33-0400 Body temperature 97.7 [degF] Lien Bang DPM Work Phone: [facility] 02-13-2025 13:33-0400 Diastolic blood pressure 68 mm[Hg] Lien Bang DPM Work Phone: [facility] 02-13-2025 13:33-0400 Heart rate 101 /min Lien Bang DPM Work Phone: [facility] 02-13-2025 13:33-0400 Respiratory rate 20 /min Lien Bang DPM Work Phone: [facility] 02-13-2025 13:33-0400 SaO2% (BldA) [Mass fraction] 98 % Lien Bang DPM Work Phone: [facility] 02-13-2025 13:33-0400 Systolic blood pressure 119 mm[Hg] Lien Bang DPM Work Phone: [facility] 01-16-2025 13:41-0500 Body temperature 97.59 [degF] Lien Bang DPM Work Phone: [facility] 01-16-2025 13:41-0500 Diastolic blood pressure 73 mm[Hg] Lien Bang DPM Work Phone: [facility] 01-16-2025 13:41-0500 Heart rate 76 /min Lien Bang DPM Work Phone: [facility] 01-16-2025 13:41-0500 SaO2% (BldA) [Mass fraction] 96 % Lien Bang DPM Work Phone: [facility] 01-16-2025 13:41-0500 Systolic blood pressure 132 mm[Hg] Lien Bang DPM Work Phone: [facility] 01-08-2025 13:32-0500 Body temperature 98.1 [degF] Pierce Chi MD Work Phone: [facility] 01-08-2025 13:32-0500 Diastolic blood pressure 74 mm[Hg] Pierce Chi MD Work Phone: [facility] 01-08-2025 13:32-0500 Heart rate 95 /min Pierce Chi MD Work Phone: [facility] 01-08-2025 13:32-0500 SaO2% (BldA) [Mass fraction] 97 % Pierce Chi MD Work Phone: [facility] 01-08-2025 13:32-0500 Systolic blood pressure 165 mm[Hg] Pierce Chi MD Work Phone: [facility] 01-04-2025 08:05-0500 Body height 152.4 cm Tyesha Singleton MD Work Phone: [facility] 01-04-2025 08:05-0500 Body mass index (BMI) [Ratio] 20.24 kg/m2 Tyesha Singleton MD Work Phone: [facility] 01-04-2025 08:05-0500 Body weight 47 kg Tyesha Singleton MD Work Phone: [facility] 01-04-2025 08:05-0500 Diastolic blood pressure 59 mm[Hg] Tyesha Singleton MD Work Phone: [facility] Comment on above: per facility paperwork BP is at baseline 01-04-2025 08:05-0500 Heart rate 84 /min Tyesha Singleton MD Work Phone: [facility] 01-04-2025 08:05-0500 Respiratory rate 16 /min Tyesha Singleton MD Work Phone: [facility] 01-04-2025 08:05-0500 Systolic blood pressure 165 mm[Hg] Tyesha Singleton MD Work Phone: [facility] Comment on above: per facility paperwork BP is at baseline 01-02-2025 08:44-0500 Diastolic blood pressure 72 mm[Hg] Grupo ochoa MD Work Phone: [facility] Comment on above: recheck 01-02-2025 08:44-0500 Systolic blood pressure 152 mm[Hg] Grupo Mendez MD Work Phone: [facility] Comment on above: recheck 01-02-2025 08:41-0500 Body mass index (BMI) [Ratio] 20.24 kg/m2 Grupo Mendez MD Work Phone: [facility] 01-02-2025 08:41-0500 Body temperature 97.9 [degF] Grupo Mendez MD Work Phone: [facility] 01-02-2025 08:41-0500 Body weight 47 kg Grupo Mendez MD Work Phone: [facility] 01-02-2025 08:41-0500 Heart rate 85 /min Grupo Mendez MD Work Phone: [facility] 01-02-2025 08:41-0500 Respiratory rate 18 /min Grupo Mendez MD Work Phone: [facility] 01-02-2025 08:41-0500 SaO2% (BldA) [Mass fraction] 96 % Grupo Mendez MD Work Phone: [facility] 12-26-2024 13:07-0500 Body temperature 97.3 [degF] Lien Bang DPM Work Phone: [facility] 12-26-2024 13:07-0500 Diastolic blood pressure 79 mm[Hg] Lien Bang DPM Work Phone: [facility] 12-26-2024 13:07-0500 Heart rate 96 /min Lien Bang DPM Work Phone: [facility] 12-26-2024 13:07-0500 SaO2% (BldA) [Mass fraction] 95 % Lien Bang DPM Work Phone: [facility] 12-26-2024 13:07-0500 Systolic blood pressure 164 mm[Hg] Lien Bang DPM Work Phone: [facility] 12-02-2024 12:26-0500 SaO2% (BldA) [Mass fraction] 92 % UNKNOWN PROVIDER [facility] Comment on above: Order Comment: Specimen Type: ARTERIAL B LOOD SPECIMENOrdering Facility: [facility] Address: [address] [place], [place] [id number] Performed By: #### A LLBG ####[facility]PIRATORYCLIA [id number] [id number] [place] [id number] 10-29-2024 16:27-0500 Diastolic blood pressure 72 mm[Hg] Ab Benson MD Work Phone: [facility] Comment on above: trupbp 10-29-2024 16:27-0500 Heart rate 66 /min Ab Benson MD Work Phone: [facility] 10-29-2024 16:27-0500 Systolic blood pressure 159 mm[Hg] Ab Benson MD Work Phone: [facility] Comment on above: trupbp 10-29-2024 16:24-0500 Body mass index (BMI) [Ratio] 20.67 kg/m2 Ab Benson MD Work Phone: [facility] 10-29-2024 16:24-0500 Body temperature 99.3 [degF] Ab Benson MD Work Phone: [facility] 10-29-2024 16:24-0500 Body weight 48 kg Ab Benson MD Work Phone: [facility] 10-29-2024 16:24-0500 SaO2% (BldA) [Mass fraction] 97 % Ab Benson MD Work Phone: [facility] 09-17-2024 15:04-0500 Body mass index (BMI) [Ratio] 22.48 kg/m2 Grupo Mendez MD Work Phone: [facility] 09-17-2024 15:04-0500 Body weight 52.2 kg Grupo Mendez MD Work Phone: [facility] 09-17-2024 15:04-0500 Diastolic blood pressure 88 mm[Hg] Grupo ochoa MD Work Phone: [facility] 09-17-2024 15:04-0500 Heart rate 92 /min Grupo Mendez MD Work Phone: [facility] 09-17-2024 15:04-0500 Respiratory rate 16 /min Grupo Mendez MD Work Phone: [facility] 09-17-2024 15:04-0500 SaO2% (BldA) [Mass fraction] 99 % Grupo Mendez MD Work Phone: [facility] 09-17-2024 15:04-0500 Systolic blood pressure 166 mm[Hg] Grupo Mendez MD Work Phone: [facility] 09-13-2024 10:45-0400 Diastolic blood pressure 60 mm[Hg] Migdalia Archibald Work Phone: [facility] 09-13-2024 10:45-0400 Systolic blood pressure 150 mm[Hg] Migdalia Cramer MD Work Phone: [facility] 09-13-2024 10:20-0400 Body mass index (BMI) [Ratio] 22.09 kg/m2 Migdalia Cramer MD Work Phone: [facility] 09-13-2024 10:20-0400 Body weight 51.3 kg Migdalia Cramer MD Work Phone: [facility] 09-13-2024 10:20-0400 Heart rate 98 /min Migdalia Cramer MD Work Phone: [facility] 08-14-2024 10:36-0400 Body mass index (BMI) [Ratio] 22 kg/m2 Migdalia Cramer MD Work Phone: [facility] 08-14-2024 10:36-0400 Body temperature 97.59 [degF] Migdalia Cramer MD Work Phone: [facility] 08-14-2024 10:36-0400 Body weight 51.1 kg Migdalia Cramer MD Work Phone: [facility] 08-14-2024 10:36-0400 Diastolic blood pressure 68 mm[Hg] Migdalia Archibald Work Phone: [facility] 08-14-2024 10:36-0400 Heart rate 91 /min Migadlia Cramer MD Work Phone: [facility] 08-14-2024 10:36-0400 SaO2% (BldA) [Mass fraction] 96 % Migdalia Cramer MD Work Phone: [facility] 08-14-2024 10:36-0400 Systolic blood pressure 125 mm[Hg] Migdalia Cramer MD Work Phone: [facility] 07-12-2024 09:59-0400 Diastolic blood pressure 70 mm[Hg] Migdalia Archibald Work Phone: [facility] 07-12-2024 09:59-0400 Systolic blood pressure 142 mm[Hg] Migdalia Cramer MD Work Phone: [facility] 07-12-2024 09:31-0400 Body mass index (BMI) [Ratio] 21.23 kg/m2 Migdalia Cramer MD Work Phone: [facility] 07-12-2024 09:31-0400 Body weight 49.3 kg Migdalia Cramer MD Work Phone: [facility] 07-12-2024 09:31-0400 Heart rate 80 /min Migdalia Cramer MD Work Phone: [facility] 04-13-2023 15:23-0400 Body temperature 98.01 [degF] Willie Mitsch BROADCAST TECHNICIAN.LICENSED MARRIAGE AND FAMILY THERAPIST Work Phone: [facility] 04-13-2023 15:23-0400 Body weight 54.07 kg Willie Mitsch BROADCAST TECHNICIAN.LICENSED MARRIAGE AND FAMILY THERAPIST Work Phone: [facility] 04-13-2023 15:23-0400 Diastolic blood pressure 63 mm[Hg] Willie Mitsch BROADCAST TECHNICIAN.LICENSED MARRIAGE AND FAMILY THERAPIST Work Phone: [facility] 04-13-2023 15:23-0400 Heart rate 80 /min Willie Mitsch BROADCAST TECHNICIAN.LICENSED MARRIAGE AND FAMILY THERAPIST Work Phone: [facility] 04-13-2023 15:23-0400 Systolic blood pressure 125 mm[Hg] Willie Mitsch BROADCAST TECHNICIAN.LICENSED MARRIAGE AND FAMILY THERAPIST Work Phone: [facility] 03-29-2023 15:26-0400 Body weight 53.34 kg Willie Mitsch BROADCAST TECHNICIAN.LICENSED MARRIAGE AND FAMILY THERAPIST Work Phone: [facility] 03-29-2023 15:26-0400 Diastolic blood pressure 71 mm[Hg] Willie Mitsch BROADCAST TECHNICIAN.LICENSED MARRIAGE AND FAMILY THERAPIST Work Phone: [facility] 03-29-2023 15:26-0400 Heart rate 80 /min Willie Mitsch BROADCAST TECHNICIAN.LICENSED MARRIAGE AND FAMILY THERAPIST Work Phone: [facility] 03-29-2023 15:26-0400 Systolic blood pressure 150 mm[Hg] Willie Mitsch BROADCAST TECHNICIAN.LICENSED MARRIAGE AND FAMILY THERAPIST Work Phone: [facility] 03-17-2023 14:18-0400 Body weight 54.88 kg Willie Mitsch BROADCAST TECHNICIAN.LICENSED MARRIAGE AND FAMILY THERAPIST Work Phone: [facility] 03-17-2023 14:18-0400 Diastolic blood pressure 67 mm[Hg] Willie Mitsch BROADCAST TECHNICIAN.LICENSED MARRIAGE AND FAMILY THERAPIST Work Phone: [facility] 03-17-2023 14:18-0400 Heart rate 86 /min Willie Mitsch BROADCAST TECHNICIAN.LICENSED MARRIAGE AND FAMILY THERAPIST Work Phone: [facility] 03-17-2023 14:18-0400 Systolic blood pressure 146 mm[Hg] Willie Mitsch BROADCAST TECHNICIAN.LICENSED MARRIAGE AND FAMILY THERAPIST Work Phone: [facility] 10-23-2022 08:59-0500 Body weight 55.48 kg Migdalia Cramer MD Work Phone: [facility] 10-23-2022 08:59-0500 Diastolic blood pressure 82 mm[Hg] Migdalia Archibald Work Phone: [facility] 10-23-2022 08:59-0500 Heart rate 87 /min Migdalia Cramer MD Work Phone: [facility] 10-23-2022 08:59-0500 Systolic blood pressure 145 mm[Hg] Migdalia Cramer MD Work Phone: [facility] 05-08-2022 08:07-0400 Diastolic blood pressure 70 mm[Hg] Migdalia Archibald Work Phone: [facility] 05-08-2022 08:07-0400 Heart rate 70 /min Migdalia Cramer MD Work Phone: [facility] 05-08-2022 08:07-0400 Systolic blood pressure 130 mm[Hg] Migdalia Cramer MD Work Phone: [facility] 05-08-2022 08:05-0400 Body weight 53.48 kg Migdalia Cramer MD Work Phone: [facility] 04-03-2022 08:08-0400 Body temperature 98.01 [degF] Migdalia Cramer MD Work Phone: [facility] 04-03-2022 08:08-0400 Body weight 52.34 kg Migdalia Cramer MD Work Phone: [facility] 04-03-2022 08:08-0400 Diastolic blood pressure 68 mm[Hg] Migdalia Archibald Work Phone: [facility] 04-03-2022 08:08-0400 Heart rate 76 /min Migdalia Cramer MD Work Phone: [facility] 04-03-2022 08:08-0400 Systolic blood pressure 137 mm[Hg] Migdalia Cramer MD Work Phone: [facility] Encounters Encounter Date Encounter Type Care Provider Facility Start: 05-28-2025 End: 05-28-2025 Telephone encounter Tyesha Singleton MD Work Phone: Rheumatology Comment on above: Results (Outside lab results) Start: 05-27-2025 ambulatory Mario RODAS Facili ty:[facility] Start: 05-01-2025 End: 05-01-2025 Telephone encounter Tyesha Singleton MD Work Phone: Rheumatology Start: 04-29-2025 ambulatory Mario RODAS Facili ty:[facility] Start: 04-26-2025 ambulatory Mario RODAS Facili ty:[facility] Start: 04-10-2025 ambulatory Mario RODAS Facili ty:[facility] Start: 04-10-2025 Registered Referred [facility] Start: 04-01-2025 End: 04-01-2025 ambulatory Mario Mak MD [facility] Work Phone: Start: 04-01-2025 End: 04-01-2025 Departed Referred [facility] Start: 04-01-2025 Registered Ref[facility] Start: 04-01-2025 End: 04-01-2025 ambulatory Mario RODAS Facility:[facility] Start: 03-12-2025 End: 03-12-2025 ambulatory Mario Mak MD [facility] Work Phone: Start: 03-12-2025 End: 03-12-2025 Departed Referred Mario Mak MD -[facility] Start: 03-12-2025 Registered Referred Mario Mak MD -[facility] Start: 03-12-2025 End: 03-12-2025 ambulatory Mario RODAS Facility:[facility] Start: 03-04-2025 End: 03-04-2025 ambulatory Mario Mak MD [facility] Work Phone: Start: 03-04-2025 End: 03-04-2025 Departed Referred [facility] Start: 03-04-2025 End: 03-04-2025 ambulatory Mario RODAS Facility:[facility] Start: 02-13-2025 End: 02-13-2025 Patient encounter procedure Lien Alex DPM Work Phone: Plastic Surgery Comment on above: 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) Start: 02-13-2025 End: 02-13-2025 ambulatory LIEN BANG Facility:[facility] Start: 02-11-2025 End: 02-11-2025 Telephone encounter Tyesha Singleton MD Work Phone: Rheumatology Comment on above: Results (Lab results ) Start: 02-04-2025 End: 02-04-2025 ambulatory Mario Mak MD [facility] Work Phone: Start: 02-04-2025 End: 02-04-2025 Departed Referred Mario Mak MD -[facility] Start: 02-04-2025 Registered Referred Mario Mak MD -[facility] Start: 02-04-2025 End: 02-04-2025 ambulatory Mario RODAS Facility:[facility] Start: 01-16-2025 End: 01-18-2025 Refill Willie Kaur APRN.CNP Work Phone: Family Medicine Comment on above: Refill Request Start: 01-16-2025 End: 01-16-2025 ambulatory LIEN BANG Facility:[facility] Start: 01-16-2025 End: 01-16-2025 Patient encounter procedure Lien Bang DPM Work Phone: Plastic Surgery Comment on above: Pressure injury of r ight ankle, stage 3 (HCC) (Primary Dx) Start: 01-15-2025 End: 01-15-2025 ambulatory Mario Mak MD [facility] Work Phone: Start: 01-15-2025 End: 01-15-2025 Departed Referred Mario Mak MD [facility] Start: 01-15-2025 End: 01-15-2025 ambulatory Mario RODAS Facility:[facility] Start: 01-08-2025 End: 01-08-2025 Patient encounter [...] Start: 01-08-2025 End: 01-08-2025 ambulatory UNKNOWN PROVIDER Facility:[facility] Start: 01-07-2025 ambulatory Mario RODAS Facili ty:[facility] Start: 01-07-2025 Registered Referred Mario Mak MD [facility] Start: 01-04-2025 End: 01-04-2025 ambulatory MIGDALIA CRAMER Facility:[facility] Start: 01-04-2025 End: 01-04-2025 Office outpatient new 45 minutes Tyesha Singleton MD Work Phone: Rheumatology Comment on above: Pseudogout (Primary Dx); Ankle swelling, right; Medication monitoring encounter Start: 01-03-2025 End: 01-10-2025 Telephone encounter Migdalia Cramer MD Work Phone: [address] [place] [address] Comment on above: Patient Update Start: 01-02-2025 End: 01-02-2025 Telephone encounter Aditi ALLEN Work Phone: Hematology/Oncology Comment on above: Distress Assessment Start: 01-02-2025 End: 01-02-2025 ambulatory MIGDALIA CRAMER Facility:[facility] Start: 01-02-2025 End: 01-02-2025 ambulatory Grupo Mendez MD Work Phone: Hematology/Oncology Comment on above: Leukocytosis, unspec ified type (Primary Dx); Normocytic anemia; Vitamin B6 deficiency; Cellulitis of right ankle Start: 01-02-2025 End: 01-02-2025 Patient encounter procedure Grupo Mendez MD Work Phone: Hematology/Oncology Start: 2024 ambulatory Marioscottie Coburn ty:[facility] Start: 2024 Registered Referred Mario Mak MD [facility] Start: 12-26-2024 End: 12-26-2024 Telephone encounter Migdalia Cramer MD Work Phone: Internal Medicine [place] Comment on above: rehab discharge conc erns Start: 12-26-2024 End: 12-26-2024 Patient encounter procedure Liencece Bang DPTj Work Phone: Plastic Surgery Comment on above: 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) Start: 12-26-2024 End: 12-26-2024 ambulatory Migdalia Cramer MD Work Phone: Family Medicine Comment on above: Call with Yusuf'heidi sons Start: 12-25-2024 End: 12-25-2024 Refill Willie Kaur APRN.CNP Work Phone: Family Medicine [place] Comment on above: Refill Request Start: 12-24-2024 ambulatory Mario Coburn ty:[facility] Start: 12-24-2024 Registered Referred Mario Mak MD [facility] Start: 12-18-2024 End: 12-18-2024 E-mail encounter from caregiver Willie Sheremerson GREGORY Work Phone: Family Medicine Start: 12-18-2024 End: 12-18-2024 Follow-up encounter Willie Kaur APRN.CNP Work Phone: Family Medicine Comment on above: hospital and [facility] facility follow up Start: 12-17-2024 ambulatory Mario Aubree Coburn ty:[facility] Start: 12-17-2024 Registered Referred Mario Mak MD [facility] Start: 12-12-2024 End: 12-12-2024 Evaluation and management of inpatient DANIEL CASTILLO Facility:[facility] Start: 12-10-2024 End: 12-10-2024 Evaluation and management of inpatient DANIEL CASTILLO Facility:[facility] Start: 11-29-2024 End: 01-08-2025 Telephone encounter Pierce Chi MD Work Phone: [facility] Comment on above: [employer] (FO R [facility] USE ONLY) Start: 11-28-2024 End: 11-28-2024 ambulatory Pierce Chi MD Work Phone: [place] [facility] Comment on above: [employer] Start Start: 11-26-2024 End: 11-26-2024 Telephone encounter Grupo Mendez MD Work Phone: Hematology/Oncology Comment on above: Appointment Start: 11-23-2024 End: 11-27-2024 Refill Willie Kaur APRN.LICENSED MARRIAGE AND FAMILY THERAPIST Work Phone: Family Medicine Comment on above: Refill Request Start: 11-21-2024 End: 12-12-2024 Evaluation and management of inpatient SHAUN SUAREZ Facility:[facility] Start: 11-21-2024 End: 11-22-2024 ambulatory Migdalia Cramer MD Work Phone: Family Medicine Comment on above: MRi and tests Start: 11-19-2024 End: 11-19-2024 ambulatory MIGDALIA CRAMER Facility:[facility] Start: 11-19-2024 End: 11-19-2024 ambulatory MIGDALIA CRAMER Facility:[facility] Start: 11-19-2024 End: 11-19-2024 Subsequent hospital visit by physician Mri [facility] Greta (I-Stat/3t) MRI [facility] Comment on above: Chronic pain of righ t ankle [M25.571, G89.29] Start: 11-06-2024 End: 11-06-2024 ambulatory Grupo Mendez MD Work Phone: Hematology/Oncology Comment on above: [employer] up coming a ppt Start: 11-06-2024 End: 12-11-2024 Telephone encounter Willie Kaur BROADCAST TECHNICIAN.LICENSED MARRIAGE AND FAMILY THERAPIST Work Phone: Family Medicine Comment on above: Appointment (Rheumat ology) Start: 11-05-2024 End: 11-05-2024 Telephone encounter Grupo Mendez MD Work Phone: Hematology/Oncology Comment on above: Results Start: 11-01-2024 End: 11-01-2024 ambulatory MIGDALIA CRAMER Facility:[facility] Start: 11-01-2024 End: 11-01-2024 ambulatory MIGDALIA Dragan [place] Facility:[facility] Start: 11-01-2024 End: 11-01-2024 Patient encounter procedure Simone Kevin MD Work Phone: Orthopaedic Surgery [facility] Comment on above: Right ankle swelling (Primary Dx); Chronic pain of right ankle Start: 11-01-2024 End: 11-01-2024 Subsequent hospital visit by physician Xr [facility] 1 Xray [facility] Comment on above: Right ankle swelling [M25.471] Start: 10-29-2024 End: 10-29-2024 ambulatory MIGDALIA Archibald [place] Facility:[facility] Start: 10-29-2024 End: 10-29-2024 Office outpatient visit 15 minutes Ab Benson MD Work Phone: Family Medicine Comment on above: Chronic pain of righ t ankle (Primary Dx) Start: 10-11-2024 End: 10-12-2024 Refill Willie Kaur BROADCAST TECHNICIAN.LICENSED MARRIAGE AND FAMILY THERAPIST Work Phone: Family Medicine Comment on above: Refill Request Start: 09-20-2024 End: 09-20-2024 ambulatory MIGDALIA CRAMER Facility:[facility] Start: 09-20-2024 End: 09-20-2024 Patient encounter procedure Simone Kevin MD Work Phone: Orthopaedic Surgery [facility] Comment on above: Right ankle swelling ; Closed nondisplaced fracture of right calcaneus, unspecified portion of calcaneus, initial encounter Start: 09-19-2024 End: 09-19-2024 ambulatory MIGDALIA D BELA Facility:[facility] Start: 09-19-2024 End: 09-19-2024 Subsequent hospital visit by physician Xr [facility] [place]ryan Work Phone: Radiology Comment on above: Pain in joint involv ing right ankle and foot [M25.571] Start: 09-18-2024 End: 09-18-2024 Telephone encounter Grupo Mendez MD Work Phone: Hematology/Oncology Comment on above: Results (Suspicion f or calcaneal bone fracture ) Start: 09-18-2024 [facility] Start: 09-18-2024 End: 09-18-2024 Subsequent hospital visit by physician [facility] 2 Work Phone: Radiology Comment on above: Right ankle swelling [M25.471] Start: 09-17-2024 End: 09-18-2024 ambulatory MIGDALIA CRAMER Facility:[facility] Start: 09-17-2024 End: 09-17-2024 Subsequent hospital visit by physician Max [facility] Adryan [...] Start: 09-13-2024 End: 09-13-2024 ambulatory MIGDALIA CRAMER Facility:[facility] Start: 09-13-2024 End: 09-13-2024 Patient encounter [...] ambulatory Migdalia Cramer MD Work Phone: Family [facility] Comment on above: Lab results and next steps Start: 09-04-2024 End: 09-05-2024 E-mail encounter from caregiver Migdalia Cramer MD Work Phone: Family Medicine Start: 08-21-2024 End: 08-24-2024 Refill Migdalia Cramer MD Work Phone: [facility] Comment on above: Refill Request Results Start: 08-14-2024 End: 08-14-2024 ambulatory MIGDALIA CRAMER Facility:[facility] Start: 08-14-2024 End: 08-14-2024 ambulatory MIGDALIA CRAMER Facility:[facility] Start: 08-14-2024 End: 08-14-2024 Office outpatient visit 25 minutes Migdalia Cramer MD Work Phone: Family Medicine Comment on above: Generalized weakness (Primary Dx); Headache, unspecified headache type; Leukocytosis, unspecified type; CKD stage 3 due to type 2 diabetes mellitus (HCC); Normocytic anemia; Essential hypertension; Insomnia; Arthralgia, unspecified joint Start: 08-13-2024 End: 08-13-2024 Emergency department patient visit MIGDALIA CRAMER Facility:[facility] Start: 08-13-2024 End: 08-13-2024 ambulatory Migdalia Cramer MD Work Phone: [facility] Comment on above: Fatigue Start: 08-09-2024 End: 08-10-2024 Refill Willie Mitsch BROADCAST TECHNICIAN.LICENSED MARRIAGE AND FAMILY THERAPIST Work Phone: [facility] Comment on above: Refill Request Start: 07-19-2024 End: 07-19-2024 Refill Migdalia Cramer MD Work Phone: [facility] Comment on above: Refill Request Start: 07-12-2024 End: 07-12-2024 ambulatory MIGDALIA CRAMER Facility:[facility] Start: 07-12-2024 End: 07-12-2024 Office outpatient visit 25 minutes Migdalia Cramer MD Work Phone: [facility] Comment on above: Essential hypertensi [...] Start: 07-11-2024 End: 07-11-2024 ambulatory MIGDALIA CRAMER Facility:[facility] Start: 05-23-2024 Refill Willie Mitsch BROADCAST TECHNICIAN.LICENSED MARRIAGE AND FAMILY THERAPIST Work Phone: [facility] Comment on above: Refill Request Start: 04-25-2024 Refill Willie Mitsch BROADCAST TECHNICIAN.LICENSED MARRIAGE AND FAMILY THERAPIST Work Phone: [facility] Comment on above: Refill Request Start: 04-16-2024 Telephone encounter Migdalia hidalgo MD Work Phone: [facility] Comment on above: Medication Problem Start: 03-21-2024 End: 03-21-2024 Patient encounter procedure Gertrudis Bill DO Work Phone: Ophthalmology Comment on above: Type 2 diabetes karen itus without retinopathy (HCC) (Primary Dx); Pseudophakia Start: 03-13-2024 ambulatory Lien Rutledge [facility] Start: 03-13-2024 Patient encounter procedure Lien Rutledge MA [facility] Comment on above: Population Health Na vigation Outreach ([facility] PCSA/) Start: 02-28-2024 Refill Migdalia gordon MD Work Phone: Family Medicine Start: 02-01-2024 Refill Ok [place] Work Phone: [facility] Comment on above: Refill Request Start: 01-31-2024 Refill Ok [place] Work Phone: [facility] Comment on above: Refill Request Start: 01-23-2024 Refill Migdalia gordon MD Work Phone: [facility] Comment on above: Refill Request Start: 01-11-2024 Refill Migdalia gordon MD Work Phone: [facility] Start: 10-14-2023 Refill Migdalia gordon MD Work Phone: [facility] Comment on above: Refill Request Start: 09-05-2023 Refill Willie Kaur APRN.CNP Work Phone: [facility] Comment on above: Refill Request Start: 08-31-2023 Telephone encounter Migdalia hidalgo MD Work Phone: Family Medicine Comment on above: Medication Problem Start: 06-23-2023 Refill Migdalia gordon MD Work Phone: [facility] Comment on above: Refill Request Start: 06-02-2023 Refill Migdalia gordon MD Work Phone: [facility] Comment on above: Refill Request Start: 05-11-2023 ambulatory Migdalia gordon MD Work Phone: Family Medicine Comment on above: Blood sugar levels Start: 04-28-2023 ambulatory No Pcp Christelle keller [facility] Start: 04-19-2023 Telephone encounter Migdalia hidalgo MD Work Phone: Family Medicine Comment on above: Appointment (Re: [facility] [place] appointment) Patient Question (Re : Blood Glucose Monitor) Start: 04-13-2023 End: 04-13-2023 Patient encounter procedure iWllie Kaur APRN.LICENSED MARRIAGE AND FAMILY THERAPIST Work Phone: Family Medicine Comment on above: Diabetes mellitus, n on-insulin dependent (NIDDM or type II) (HCC) (Primary Dx); CKD stage 3 due to type 2 diabetes mellitus (HCC) Start: 03-29-2023 End: 03-29-2023 Patient encounter procedure Willie Kaur APRN.LICENSED MARRIAGE AND FAMILY THERAPIST Work Phone: Family Medicine Comment on above: [...] End: 03-17-2023 Patient encounter procedure Willie Kaur APRN.LICENSED MARRIAGE AND FAMILY THERAPIST Work Phone: Family Medicine Comment on above: Pain in both hands ( Primary Dx); Pain in both wrists; Leukocytosis, unspecified type; Type 2 diabetes mellitus with stage 3 chronic kidney disease, without long-term current use of insulin, unspecified whether stage 3a or 3b CKD (HCC); Muscular deconditioning Start: 03-10-2023 Patient Outreach Lien jensen RN Work Phone: [employer] Comment on above: Transition Of Care ( [facility] [place], initial outreach) Start: 02-22-2023 Refill Willie Kaur APRN.LICENSED MARRIAGE AND FAMILY THERAPIST Work Phone: Family Medicine [place] Comment on above: Refill Request Start: 01-19-2023 Telephone encounter Migdalia hidalgo MD Work Phone: Family Medicine Comment on above: Refill Request Start: 12-28-2022 Refill Williedavid Kaur BROADCAST TECHNICIAN.LICENSED MARRIAGE AND FAMILY THERAPIST Work Phone: Family [facility] Comment on above: Refill Request Start: 10-23-2022 [...] Refill Migdalia gordon MD Work Phone: [facility] Comment on above: Refill Request Start: 09-29-2022 Refill Migdalia gordon MD Work Phone: [facility] Comment on above: Refill Request Start: 08-17-2022 Refill Willie Mitemerson BROADCAST TECHNICIAN.LICENSED MARRIAGE AND FAMILY THERAPIST Work Phone: [facility] Comment on above: Refill Request (SEE RX NOTES) Start: 06-10-2022 Telephone encounter Migdalia hidalgo MD Work Phone: [facility] Comment on above: Orders (Cologuard no t completed) Start: 05-28-2022 Telephone encounter Migdalia hidalgo MD Work Phone: [facility] Comment on above: Medication Problem ( Glyburide) Start: 05-08-2022 End: 05-08-2022 Patient encounter procedure Migdalia Cramer MD Work Phone: [facility] Comment on above: Iron deficiency anem ia, [...] Start: 04-27-2022 ambulatory Katia Farooq RN IN [facility] [facility] Start: 04-27-2022 Follow-up encounter Katia love RN Infrastructure Administrator Management Comment on above: Transition Of Care ( TCM follow up) Start: 04-26-2022 Telephone encounter Migdalia hidalgo MD Work Phone: [facility] Comment on above: Patient Question Start: 04-08-2022 Telephone encounter Migdalia hidalgo MD Work Phone: Family [facility] Comment on above: Lab Orders Start: 04-03-2022 [...] Work Phone: Family Medicine Comment on above: Pain; UTI Start: 03-29-2022 Telephone encounter Willie hatch APRN.LICENSED MARRIAGE AND FAMILY THERAPIST Work Phone: Family Medicine Comment on above: Appointment (please make sure she schedules hospital follow up) Start: 03-23-2022 Refill Migdalia gordon MD Work Phone: Internal Medicine Comment on above: Refill Request Start: 03-19-2022 Refill Willie Kaur APRN.LICENSED MARRIAGE AND FAMILY THERAPIST Work Phone: [facility] Comment on above: Refill Request Start: 02-25-2022 Telephone encounter Migdalia hidalgo MD Work Phone: Family Medicine Comment on above: Medication Request Start: 12-25-2021 Refill Migdalia gordon MD Work Phone: Family Medicine Comment on above: Refill Request Start: 07-14-2021 End: 07-14-2021 Subsequent hospital visit by physician Xr [place] [...] Comment: Speci men Type: BLOOD SPECIMENOrdering Facility: [facility] Address: [address] [place] [address] Performed By: #### T SCR ####CC MAIN BLOOD BANKCLIA [id number] [place] [address] [place] Start: 2024 Measurement [...] Author Start: 09-13-2025 Anxiety Screening Anxiety Screening [facility] Start: 09-13-2025 Covid-19 Vaccine ( season) Covid-19 Vaccine ( season) [facility] Comment on above: Postponed from 07/15/2024 (Declined at t his time) Start: 09-13-2025 Depression Screening Depression Screening [facility] Start: 09-13-2025 Diabetic foot examination Diabetic Foot Exam [facility] Start: 09-13-2025 RSV Vaccine (1 - 1-dose 75+ series) RSV Vaccine (1 - 1-dose 75+ series) [facility] Comment on above: Postponed from 2010 (Declined at t his time) Start: 09-13-2025 Shingrix Vaccine (2 of 3) Shingrix Vaccine (2 of 3) [facility] Comment on above: Postponed from 03/19/2015 (Declined at t his time) Start: 09-13-2025 Urine microalbumin profile DTaP,Tdap,Td Vaccine (1 - Tdap) [facility] Comment on above: Postponed from 1954 (Declined at t his time) Start: 08-14-2025 Hepatitis B screening Urine Albumin:Creatinine Ratio [facility] Start: 07-15-2025 Influenza vaccination [facility] Start: 07-11-2025 Hepatitis B surface antibody level LDL Cholesterol [facility] Start: 07-05-2025 End: 07-05-2025 Patient encounter procedure Rheumatology Comment on above: Return in about 6 months (around 07/04/20 25) for Pseudogout 20m. F/u 6 months Start: 05-13-2025 Influenza vaccination Influenza Vaccine (#1) [facility] Comment on above: Postponed from 07/15/2024 (Declined at t his time) Start: 03-21-2025 Glaucoma screening Dilated Retinal Exam [facility] Start: 03-12-2025 End: 03-12-2025 Patient encounter procedure 03/12/2025 9:00 AM EDT Office Visit Family Medicine [address] [place] [address] [place] [address] [place] [address] 6 month follow up Family Medicine Comment on above: 6 month follow up Start: 02-19-2025 Hemoglobin A1c measurement HbA1C [facility] Start: 02-13-2025 End: 05-15-2025 CBC W Auto Differential panel - Blood COMPLETE BLOOD COUNT AND DIFFERENTIAL Lab Routine Normocytic anemia Expected: 02/13/2025, Expires: 05/15/2025 [facility] Work Phone: Comment on above: Expected: 02/13/2025, Expires: Start: 02-13-2025 End: 05-15-2025 Comprehensive metabolic 2000 panel - Serum or Plasma COMPREHENSIVE METABOLIC PANEL Lab Routine Normocytic anemia Expected: 02/13/2025, Expires: 05/15/2025 [facility] Comment on above: Expected: 02/13/2025, Expires: Start: 02-13-2025 End: 05-15-2025 Pyridoxine [Mass/volume] in Serum or Plasma VITAMIN B6/PYRIDOXIN Lab Routine Normocytic anemia Vitamin B6 deficiency Expected: 02/13/2025, Expires: 05/15/2025 [facility] Comment on above: Expected: 02/13/2025, Expires: Start: 02-13-2025 End: 02-13-2025 Patient encounter procedure 02/13/2025 1:30 PM EDT Office Visit Plastic Surgery [address] [place] [address] Lien Bang, ANIRUDH [address] [facility], [address] [place] [address] appt confirmed with Nj at [facility] Right ankle-rescheduled with Malia at [facility] 01-28-2025 10:22am- Plastic Surgery Comment on above: appt confirmed with Nj at [facility] Right ankle-rescheduled with Malia at [facility] 01-28-2025 10:22am-KT Start: 02-11-2025 End: 09-13-2025 Basic metabolic 2000 panel - Serum or Plasma BASIC METABOLIC PANEL Lab Routine Essential hypertension Hypertensive kidney disease with stage 3b chronic kidney disease (HCC) CKD stage 3 due to type 2 diabetes mellitus (HCC) Diabetes mellitus, non-insulin dependent (NIDDM or type II) (HCC) Expected: 02/11/2025, Expires: 09/13/2025 [facility] Work Phone: Comment on above: Expected: 02/11/2025, Expires: Start: 02-11-2025 End: 05-13-2025 CBC panel - Blood by Automated count COMPLETE BLOOD COUNT Lab Routine Iron deficiency anemia, unspecified iron deficiency anemia type Leukocytosis, unspecified type Expected: 02/11/2025, Expires: 05/13/2025 [facility] Comment on above: Expected: 02/11/2025, Expires: Start: 02-11-2025 End: 09-13-2025 Hemoglobin A1c in Blood HEMOGLOBIN A1C Lab Routine Diabetes mellitus, non-insulin dependent (NIDDM or type II) (HCC) Expected: 02/11/2025, Expires: 09/13/2025 [facility] Comment on above: Expected: 02/11/2025, Expires: Start: 02-11-2025 End: 09-13-2025 LIPID PANEL, NONFASTING LIPID PANEL, NONFASTING Lab Routine Hyperlipidemia associated with type 2 diabetes mellitus (HCC) (HCC) Diabetes mellitus, non-insulin dependent (NIDDM or type II) (HCC) Expected: 02/11/2025, Expires: 09/13/2025 [facility] Comment on above: Expected: 02/11/2025, Expires: Start: 01-30-2025 End: 01-30-2025 Patient encounter procedure 01/30/2025 1:30 PM EDT Office Visit Plastic Surgery [facility] [place] [address] Lien Bang, ANIRUDH [address], [address] [place] [address] Right ankle Plastic Surgery Comment on above: Right ankle Start: 01-16-2025 End: 01-16-2025 Patient encounter procedure 01/16/2025 1:00 PM EST Office Visit Plastic Surgery [address] [place] [address] Lien Bang DPM [address], [address] [place] [address] Right ankle Plastic Surgery Comment on above: Right ankle Start: 01-08-2025 End: 01-08-2025 Patient encounter procedure Plastic Surgery Comment on above: new to us f/u abx from hospital visit pa tere from [facility] [phone] [facility] [phone] confirmed with Nj at [facility] 01/04/2021 f/u abx from hospital visit patient from [facility] [phone] Start: 01-04-2025 End: 01-04-2025 Patient encounter procedure 01/04/2025 8:00 AM EST Office Visit Rheumatology [address] [place] [address] Tyesha Singleton MD [address] [place] [address] mcghee Rheumatology Comment on above: Inflammatory Arthritis per dr mcghee Start: 01-02-2025 End: 01-02-2025 Follow-up encounter 01/02/2025 8:30 AM EST Visit (SP) Office Hematology/Oncology [address] [place] [address] [place] [address] [place], [place] [id number] Follow up Hematology/Oncology Comment on above: Follow up Start: 12-26-2024 End: 12-26-2024 Patient encounter procedure 12/26/2024 1:00 PM EST Office Visit Plastic Surgery [address] [place] [address] Lien Bang DPM [address] [facility], [address] [place] [id number] new to us right ankle -f/u from [...] EST - 11/27/2024 3:53 PM EST Surgery [facility] Surgery [address] [place] [address] Keerthi Plata DPM [address] [facility], [address] [place] [id number] INCISION AND DRAINAGE ABSCESS EXTREMITY LOWER SIMPLE OR SINGLE [facility] Surgery Comment on above: INCISION AND [...] 9:10 AM EST Visit (SP) Office Hematology/Oncology [address] [place] [address] [place] [address] [place] [address] folow up Iron Hematology/Oncology Comment on above: folow up Iron Start: 11-21-2024 End: 02-20-2025 CBC W Auto Differential panel - Blood COMPLETE BLOOD COUNT AND DIFFERENTIAL Lab Routine Normocytic anemia Leukocytosis, unspecified type Expected: 11/21/2024, Expires: 02/20/2025 [facility] Work Phone: Comment on above: Expected: 11/21/2024, Expires: Start: 11-21-2024 End: 02-20-2025 Ferritin [Mass/volume] in Serum or Plasma FERRITIN Lab Routine Normocytic anemia Expected: 11/21/2024, Expires: 02/20/2025 [facility] Comment on above: Expected: 11/21/2024, Expires: Start: 11-21-2024 End: 02-20-2025 Iron and Iron binding capacity panel - Serum or Plasma IRON AND TIBC Lab Routine Normocytic anemia Expected: 11/21/2024, Expires: 02/20/2025 [facility] Comment on above: Expected: 11/21/2024, Expires: Start: 11-21-2024 End: 02-20-2025 Zinc [Mass/volume] in Serum or Plasma ZINC BLD Lab Routine Normocytic anemia Expected: 11/21/2024, Expires: 02/20/2025 [facility] Comment on above: Expected: 11/21/2024, Expires: Start: 11-21-2024 End: 11-21-2024 ambulatory 11/21/2024 9:15 AM EST Results Only [facility] [address] [place] [address] lab [facility] Comment on above: lab Start: 11-19-2024 End: 11-19-2024 Patient encounter procedure 11/19/2024 9:30 AM EST Appointment MRI [facility] [address] [place] [address] Chronic pain of right ankle [M25.571, G89.29] MRI [facility] Comment on above: Chronic pain of right ankle [M25.571, G8 9.29] Start: 11-14-2024 Advance Directive Discussion Advance Directive Discussion [facility] Start: 11-14-2024 Hemoglobin A1c measurement HbA1C [facility] Start: 11-14-2024 Medicare Advantage Annual Wellness Visit Medicare [facility] Annual Wellness Visit [facility] Start: 11-01-2024 End: 01-31-2025 C reactive protein [Mass/volume] in Serum or Plasma [facility] Comment on above: Expected: 11/01/2024, Expires: Start: 11-01-2024 End: 01-31-2025 Erythrocyte sedimentation rate [facility] Comment on above: Expected: 11/01/2024, Expires: Start: 10-11-2024 Hemoglobin A1c measurement HbA1C [facility] Start: 09-20-2024 End: 09-20-2024 Patient encounter procedure 09/20/2024 9:10 AM EST Office Visit Orthopaedic Surgery [facility] [address] [place] [address] Simone Kevin MD [address] [place] [address] Right ankle swelling [M25.471]; Closed nondisplaced fracture of right calcaneus, unspecified portion of calcaneus, initial encounter [S92.001A] Orthopaedic Surgery [facility] Comment on above: Right ankle swelling [M25.471]; Closed n ondisplaced fracture of right calcaneus, unspecified portion of calcaneus, initial encounter [S92.001A] Start: 09-18-2024 End: 09-18-2024 Patient encounter procedure 09/18/2024 8:15 AM EST Appointment Radiology [address] [place] [address] Right ankle swelling [M25.471] Radiology Comment on above: Right ankle swelling [M25.471] Start: 09-17-2024 End: 09-17-2024 [facility] visit new patient 09/17/2024 3:10 PM EST Visit (SP) Office Hematology/Oncology [address] [place] [address] [place] [address] [place] [address] New patient Hematology/Oncology Comment on above: New patient Start: 09-17-2024 End: 12-17-2024 Pyridoxine [Mass/volume] in Serum or Plasma [facility] Work Phone: Comment on above: Expected: 09/17/2024, Expires: Start: 09-13-2024 End: 09-13-2024 Patient encounter procedure 09/13/2024 10:00 AM EDT Office Visit Family Medicine [id number] [place] [address] [place]ramer [place] [id number] [place] [address] AWV Due Family Medicine Comment on above: AWV Due Start: 09-11-2024 End: 12-11-2024 Basic metabolic 2000 panel - Serum or Plasma BASIC METABOLIC PANEL Lab Routine CKD stage 3 due to type 2 diabetes mellitus (HCC) Hypertensive kidney disease with stage 3b chronic kidney disease (HCC) Essential hypertension Diabetes mellitus, non-insulin dependent (NIDDM or type II) (HCC) Expected: 09/11/2024, Expires: 12/11/2024 [facility] Work Phone: Comment on above: Expected: 09/11/2024, Expires: Start: 09-11-2024 End: 12-11-2024 CBC panel - Blood by Automated count COMPLETE BLOOD COUNT Lab Routine Iron deficiency anemia, unspecified iron deficiency anemia type Expected: 09/11/2024, Expires: 12/11/2024 [facility] Comment on above: Expected: 09/11/2024, Expires: Start: 09-11-2024 End: 12-11-2024 Hemoglobin A1c in Blood HEMOGLOBIN A1C Lab Routine Diabetes mellitus, non-insulin dependent (NIDDM or type II) (HCC) Expected: 09/11/2024, Expires: 12/11/2024 [facility] Comment on above: Expected: 09/11/2024, Expires: Start: 09-11-2024 End: 12-11-2024 Microalbumin/Creatinine [Mass Ratio] in Urine ALBUMIN/CREATININE RATIO, URINE Lab Routine CKD stage 3 due to type 2 diabetes mellitus (HCC) Essential hypertension Diabetes mellitus, non-insulin dependent (NIDDM or type II) (HCC) Expected: 09/11/2024, Expires: 12/11/2024 [facility] Comment on above: Expected: 09/11/2024, Expires: 5 Start: 09-11-2024 End: 12-11-2024 Thyrotropin [Units/volume] in Serum or Plasma THYROID STIMULATING HORMONE Lab Routine Hypertensive kidney disease with stage 3b chronic kidney disease (HCC) Essential hypertension Hyperlipidemia associated with type 2 diabetes mellitus (HCC) (HCC) Diabetes mellitus, non-insulin dependent (NIDDM or type II) (HCC) Dyslipidemia Weight loss Iron deficiency anemia, unspecified iron deficiency anemia type Expected: 09/11/2024, Expires: 12/11/2024 [facility] Comment on above: Expected: 09/11/2024, Expires: 5 Start: 08-14-2024 End: 11-13-2024 Bacteria identified in Urine by Culture [facility] Comment on above: Expected: 08/14/2024, Expires: Start: 08-14-2024 End: 11-13-2024 C reactive protein [Mass/volume] in Serum or Plasma [facility] Comment on above: Expected: 08/14/2024, Expires: Start: 08-14-2024 End: 11-13-2024 CBC W Ordered Manual Differential panel - Blood [facility] Comment on above: Expected: 08/14/2024, Expires: 4 Start: 08-14-2024 End: 11-13-2024 Erythrocyte sedimentation rate [facility] Work Phone: Comment on above: Expected: 08/14/2024, Expires: 4 Start: 08-14-2024 End: 11-13-2024 PROTEIN ELECT RND UR W/INTERP [facility] Comment on above: Expected: 08/14/2024, Expires: 4 Start: 08-14-2024 End: 11-13-2024 PROTEIN ELECTROPHORESIS SERUM W/INTERP [facility] Comment on above: Expected: 08/14/2024, Expires: Start: 08-14-2024 End: 11-13-2024 URINALYSIS, DIPSTICK ONLY [facility] Comment on above: Expected: 08/14/2024, Expires: 4 Start: 08-14-2024 End: 08-14-2024 Patient encounter procedure 08/14/2024 10:40 AM EDT Office Visit Family Medicine [id number] [place] [address], [place] [address] [place] [address] [place] [address] Elevated white count and dehydration/fatigue Family Medicine Comment on above: Elevated white count and dehydration/fat igue Start: 07-15-2024 Covid-19 Vaccine ( season) Covid-19 Vaccine ( season) [facility] Start: 07-15-2024 Covid-19 Vaccine ( season) Covid-19 Vaccine ( season) [facility] Start: 07-15-2024 Influenza vaccination [facility] Start: 07-12-2024 End: 07-12-2024 Patient encounter procedure 07/12/2024 9:40 AM EDT Office Visit Family Medicine [address] [place] [address] [place] [address] [place] [address] Follow Up Family Medicine Comment on above: Follow Up Start: 04-12-2024 End: 04-12-2024 Patient encounter procedure 04/12/2024 11:30 AM EDT Office Visit Rheumatology [address] [place] [id number] [place] [address] [place] [id number] HFU pseudogout Rheumatology Comment on above: HFU pseudogout Start: 03-21-2024 End: 03-21-2024 Patient encounter procedure 03/21/2024 10:45 AM EDT Office Visit [facility]HT Ophthalmology [address] [place] [address] Gertrudis Bill, DO [address] [place], [place] [id number] Dilated Retinal Exam Ophthalmology Comment on above: Dilated Retinal Exam Start: 03-13-2024 End: 09-13-2024 Basic metabolic 2000 panel - Serum or Plasma BASIC METABOLIC PANEL Lab Routine Diabetes mellitus, non-insulin dependent (NIDDM or type II) (HCC) Hyperlipidemia associated with type 2 diabetes mellitus (HCC) (HCC) Essential hypertension Expected: 03/13/2024, Expires: 09/13/2024 [facility] Comment on above: Expected: 03/13/2024, Expires: Start: 03-13-2024 End: 09-13-2024 Hemoglobin A1c in Blood HEMOGLOBIN A1C Lab Routine Diabetes mellitus, non-insulin dependent (NIDDM or type II) (HCC) Expected: 03/13/2024, Expires: 09/13/2024 [facility] Work Phone: Comment on above: Expected: 03/13/2024, Expires: Start: 03-13-2024 End: 09-13-2024 LIPID PANEL, NONFASTING LIPID PANEL, NONFASTING Lab Routine Hyperlipidemia associated with type 2 diabetes mellitus (HCC) (HCC) Expected: 03/13/2024, Expires: 09/13/2024 [facility] Comment on above: Expected: 03/13/2024, Expires: Start: 03-13-2024 End: 09-13-2024 Microalbumin/Creatinine [Mass Ratio] in Urine ALBUMIN/CREATININE RATIO, URINE Lab Routine Diabetes mellitus, non-insulin dependent (NIDDM or type II) (HCC) Expected: 03/13/2024, Expires: 09/13/2024 [facility] Comment on above: Expected: 03/13/2024, Expires: Start: 11-14-2023 Advance Directive Discussion Advance Directive Discussion [facility] Start: 11-14-2023 Behavioral Health Screening Behavioral Health Screening [facility] Start: 11-14-2023 Depression Assessment Depression Assessment [facility] Start: 11-12-2023 Hemoglobin A1c measurement HbA1C [facility] Start: 11-12-2023 Hemoglobin A1c/Hemoglobin.total in Blood HBA1C [facility] Start: 10-23-2023 3 comp foot exam completed DIABETIC FOOT EXAM [facility] Start: 10-23-2023 Diabetic foot examination Diabetic Foot Exam [facility] Start: 10-21-2023 Hepatitis B screening URINE ALBUMIN:CREATININE RATIO [facility] Start: 10-21-2023 Hepatitis B surface antibody level LDL CHOLESTEROL [facility] Start: 09-07-2023 Hemoglobin A1c/Hemoglobin.total in Blood HBA1C [facility] Start: 07-15-2023 Covid-19 Vaccine () Covid-19 Vaccine () [facility] Start: 07-15-2023 Influenza vaccination [facility] Start: 06-17-2023 End: 08-17-2023 Basic metabolic 2000 panel - Serum or Plasma BASIC METABOLIC PNL Lab Routine Type 2 diabetes mellitus with stage 3 chronic kidney disease, without long-term current use of insulin, unspecified whether stage 3a or 3b CKD (HCC) Expected: 06/17/2023 (Approximate), Expires: 08/17/2023 [facility] Work Phone: Comment on above: Expected: 06/17/2023 (Approximate), Expi res: 08/17/2023 Start: 06-17-2023 End: 08-17-2023 Hemoglobin A1c in Blood HGB A1C Lab Routine Type 2 diabetes mellitus with stage 3 chronic kidney disease, without long-term current use of insulin, unspecified whether stage 3a or 3b CKD (HCC) Expected: 06/17/2023 (Approximate), Expires: 08/17/2023 [facility] Work Phone: Comment on above: Expected: 06/17/2023 (Approximate), Expi res: 08/17/2023 Start: 04-29-2023 End: 06-29-2023 Basic metabolic 2000 panel - Serum or Plasma BASIC METABOLIC PNL Lab Routine CKD stage 3 due to type 2 diabetes mellitus (HCC) Diabetes mellitus, non-insulin dependent (NIDDM or type II) (HCC) Expected: 04/29/2023 (Approximate), Expires: 06/29/2023 [facility] Work Phone: Comment on above: Expected: 04/29/2023 (Approximate), Expi res: 06/29/2023 Start: 04-21-2023 Hemoglobin A1c/Hemoglobin.total in Blood HBA1C [facility] Start: 03-23-2023 End: 05-23-2023 Basic metabolic 2000 panel - Serum or Plasma BASIC METABOLIC PNL Lab Routine Diabetes mellitus, non-insulin dependent (NIDDM or type II) (HCC) Expected: 03/23/2023, Expires: 05/23/2023 [facility] Work Phone: Comment on above: Expected: 03/23/2023, Expires: 3 Start: 03-23-2023 End: 05-23-2023 Hemoglobin A1c in Blood HGB A1C Lab Routine Diabetes mellitus, non-insulin dependent (NIDDM or type II) (HCC) Expected: 03/23/2023, Expires: 05/23/2023 [facility] Work Phone: Comment on above: Expected: 03/23/2023, Expires: 3 Start: 03-23-2023 End: 05-23-2023 SCHEDULE LAB TESTING SCHEDULE LAB TESTING Lab Routine Diabetes mellitus, non-insulin dependent (NIDDM or type II) (HCC) Expected: 03/23/2023, Expires: 05/23/2023 [facility] Work Phone: Comment on above: Expected: 03/23/2023, Expires: 3 Start: 11-14-2022 ADVANCE DIRECTIVE DISCUSSION ADVANCE DIRECTIVE DISCUSSION [facility] Start: 11-14-2022 DEPRESSION ASSESSMENT DEPRESSION ASSESSMENT [facility] Start: 10-27-2022 Hemoglobin A1c/Hemoglobin.total in Blood HBA1C [facility] Start: 10-15-2022 3 comp foot exam completed DIABETIC FOOT EXAM [facility] Start: 10-15-2022 SHINGRIX VACCINE (2 of 3) SHINGRIX VACCINE (2 of 3) [facility] Comment on above: Postponed from 03/19/2015 (Declined at t his time) Start: 10-15-2022 Urine microalbumin profile DTAP,TDAP,TD (1 - Tdap) [facility] Comment on above: Postponed from 1954 (Declined at t his time) Start: 10-12-2022 Hepatitis B screening URINE ALBUMIN:CREATININE RATIO [facility] Start: 10-12-2022 Hepatitis B surface antibody level LDL CHOLESTEROL [facility] Start: 10-08-2022 End: 12-08-2022 ALBUMIN/CREAT RATIO RND UR ALBUMIN/CREAT RATIO RND UR Lab Routine Diabetes mellitus, non-insulin dependent (NIDDM or type II) (HCC) Hypertensive kidney disease with stage 3b chronic kidney disease (HCC) Expected: 10/08/2022, Expires: 12/08/2022 [facility] Work Phone: Comment on above: Expected: 10/08/2022, Expires: 3 Start: 10-08-2022 End: 12-08-2022 Basic metabolic 2000 panel - Serum or Plasma BASIC METABOLIC PNL Lab Routine Diabetes mellitus, non-insulin dependent (NIDDM or type II) (HCC) CKD stage 3 due to type 2 diabetes mellitus (HCC) Essential hypertension Hypertensive kidney disease with stage 3b chronic kidney disease (HCC) Expected: 10/08/2022, Expires: 12/08/2022 [facility] Work Phone: Comment on above: Expected: 10/08/2022, Expires: 3 Start: 10-08-2022 End: 12-08-2022 Hemoglobin A1c in Blood HGB A1C Lab Routine Diabetes mellitus, non-insulin dependent (NIDDM or type II) (HCC) Expected: 10/08/2022, Expires: 12/08/2022 [facility] Work Phone: Comment on above: Expected: 10/08/2022, Expires: 3 Start: 10-08-2022 End: 12-08-2022 LIPID PANEL, NONFASTING LIPID PANEL, NONFASTING Lab Routine Diabetes mellitus, non-insulin dependent (NIDDM or type II) (HCC) Hyperlipidemia associated with type 2 diabetes mellitus (HCC) Expected: 10/08/2022, Expires: 12/08/2022 [facility] Work Phone: Comment on above: Expected: 10/08/2022, Expires: 3 Start: 09-24-2022 Hemoglobin A1c/Hemoglobin.total in Blood HBA1C [facility] Start: 07-26-2022 End: 09-25-2022 CBC panel - Blood by Automated count CBC Lab Routine Iron deficiency anemia, unspecified iron deficiency anemia type CKD stage 3 due to type 2 diabetes mellitus (HCC) Expected: 07/26/2022, Expires: 09/25/2022 [facility] Work Phone: Comment on above: Expected: 07/26/2022, Expires: 2 Start: 07-26-2022 End: 09-25-2022 Ferritin [Mass/volume] in Serum or Plasma FERRITIN BLD Lab Routine Iron deficiency anemia, unspecified iron deficiency anemia type Expected: 07/26/2022, Expires: 09/25/2022 [facility] Work Phone: Comment on above: Expected: 07/26/2022, Expires: 2 Start: 07-26-2022 End: 09-25-2022 Iron and Iron binding capacity panel - Serum or Plasma IRON + TIBC Lab Routine Iron deficiency anemia, unspecified iron deficiency anemia type Expected: 07/26/2022, Expires: 09/25/2022 [facility] Work Phone: Comment on above: Expected: 07/26/2022, Expires: 2 Start: 07-15-2022 Influenza vaccination [facility] Start: 04-26-2022 End: 06-26-2022 CBC panel - Blood by Automated count CBC Lab Routine Iron deficiency anemia, unspecified iron deficiency anemia type Expected: 04/26/2022, Expires: 06/26/2022 [facility] Work Phone: Comment on above: Expected: 04/26/2022, Expires: 2 Start: 04-26-2022 End: 06-26-2022 RETIC COUNT RETIC COUNT Lab Routine Iron deficiency anemia, unspecified iron deficiency anemia type Expected: 04/26/2022, Expires: 06/26/2022 [facility] Work Phone: Comment on above: Expected: 04/26/2022, Expires: 2 Start: 04-12-2022 End: 06-12-2022 Bacteria identified in Urine by Culture URINE CULTURE Microbiology Routine Acute cystitis without hematuria Expected: 04/12/2022, Expires: 06/12/2022 [facility] Work Phone: Comment on above: Expected: 04/12/2022, Expires: 2 Start: 04-12-2022 End: 06-12-2022 URINALYSIS, DIPSTICK ONLY URINALYSIS, DIPSTICK ONLY Lab Routine Acute cystitis without hematuria Expected: 04/12/2022, Expires: 06/12/2022 [facility] Work Phone: Comment on above: Expected: 04/12/2022, Expires: 2 Start: 04-11-2022 Hemoglobin A1c/Hemoglobin.total in Blood HBA1C [facility] Start: 11-14-2021 ADVANCE DIRECTIVE DISCUSSION ADVANCE DIRECTIVE DISCUSSION [facility] Start: 11-14-2021 DEPRESSION ASSESSMENT DEPRESSION ASSESSMENT [facility] Start: 12-07-2018 Glaucoma screening Dilated Retinal Exam [facility] Start: 12-07-2018 Hepatitis C antibody, confirmatory test DILATED RETINAL EXAM [facility] Start: 10-22-2016 PNEUMOCOCCAL: 65+ (2 - PPSV23 or PCV20) PNEUMOCOCCAL: 65+ (2 - PPSV23 or PCV20) [facility] Start: 03-19-2015 SHINGRIX VACCINE (2 of 3) SHINGRIX VACCINE (2 of 3) [facility] Start: 06-14-2013 Colonoscopy COLONOSCOPY [facility] Start: 06-14-2013 Screening for malignant neoplasm of colon Colonoscopy [facility] Start: 06-15-2012 COLORECTAL CANCER SCREENING COLORECTAL CANCER SCREENING [facility] Start: 06-15-2012 Screening for malignant neoplasm of colon Colorectal Cancer Screening [facility] Start: 2010 RSV Vaccine (1 - 1-dose 75+ series) RSV Vaccine (1 - 1-dose 75+ series) [facility] Start: 1995 Hepatitis B Vaccine (1 of 3 - Risk 3-dose series) Hepatitis B Vaccine (1 of 3 - Risk 3-dose series) [facility] Start: 1995 RSV Vaccine (1 - 1-dose 60+ series) RSV Vaccine (1 - 1-dose 60+ series) [facility] Start: 1980 COLOGUARD (FIT-DNA) COLOGUARD (FIT-DNA) [facility] Start: [address] COLONOGRAPHY [facility] Start: 1980 FECAL OCCULT BLOOD FECAL OCCULT BLOOD [facility] Start: 1980 Screening for malignant neoplasm of colon [facility] Start: 1980 SIGMOIDOSCOPY SIGMOIDOSCOPY [facility] Start: 1954 Urine microalbumin profile [facility] Start: 1953 Anxiety Screening Anxiety Screening [facility] Start: 1953 Depression Screening Depression Screening [facility] Start: 1940 COVID-19 VACCINE (#1) COVID-19 VACCINE (#1) [facility] Start: 1940 COVID-19 VACCINE (1) COVID-19 VACCINE (1) [facility] Start: 06-30-1936 COVID-19 VACCINE (#1) COVID-19 VACCINE (#1) [facility] COLOGUARD COLOGUARD Lab Ro utine Screening for colon cancer Ordered: 04/08/2022 [facility] Work Phone: Comment on above: Ordered: 04/08/2022 End: 12-01-2025 MR Ankle - right WO contrast MRI ANKLE WO IVCON RIGHT Radiology Routine Chronic pain of right ankle 1 Occurrences starting 11/01/2024 until 12/01/2025 [facility] Comment on above: 1 Occurrences starting 11/01/2024 until 12/01/2025 End: 09-17-2024 XR Ankle - right AP and Lateral and oblique [facility] Work Phone: Comment on above: 1 Occurrences starting 09/17/2024 until 09/17/2024 End: 12-01-2025 XR Ankle - right AP and Lateral and oblique XR ANKLE GENERAL 3V AP/LAT/OBL RIGHT Radiology Routine Right ankle swelling 1 Occurrences starting 11/01/2024 until 12/01/2025 [facility] Work Phone: Comment on above: 1 Occurrences starting 11/01/2024 until 12/01/2025 XR Ankle - right AP and Lateral and oblique XR ANKLE GENERAL 3V AP/LAT/OBL RIGHT Radiology Routine Right ankle swelling 11/01/2024 2:21 PM EST [facility] XR Calcaneus - right 2 Views XR CALCANEUS 2V AXIAL/LAT RIGHT Radiology Routine Pain in joint involving right ankle and foot 09/19/2024 2:13 PM [facility] XR Foot - right AP a nd Lateral and oblique XR FOOT GENERAL 3V AP/LAT/OBL RIGHT Radiology Routine Pain in joint involving right ankle and foot 09/19/2024 2:13 PM EST [facility] Work Phone: End: 12-01-2025 XR Foot - right AP and Lateral and oblique XR FOOT GENERAL 3V AP/LAT/OBL RIGHT Radiology Routine Right ankle swelling 1 Occurrences starting 11/01/2024 until 12/01/2025 [facility] Comment on above: 1 Occurrences starting 11/01/2024 until 12/01/2025 XR Foot - right AP a nd Lateral and oblique XR FOOT GENERAL 3V AP/LAT/OBL RIGHT Radiology Routine Right ankle swelling 11/01/2024 2:21 PM [facility] Immunizations Immunization Date Immunization Notes Care Provider Fa cili 12-07-2017 influenza virus vacc ine, unspecified formulation Migdalia Cramer MD Work Phone: [facility] 12-01-2016 influenza, high dose seasonal, preservative-free Migdalia Cramer MD Work Phone: [facility] 10-22-2015 pneumococcal conjuga te vaccine, 13 valent Migdalia Cramer MD Work Phone: [facility] Work Phone: 08-15-2015 influenza, high dose seasonal, preservative-free Migdalia Cramer MD Work Phone: [facility] 01-22-2015 zoster vaccine, live Migdalia alfonso MD Work Phone: [facility] 09-18-2014 influenza, seasonal, injectable Migdalia Cramer MD Work Phone: [facility] Work Phone: 09-04-2013 influenza virus vacc ine, unspecified formulation Migdalia Cramer MD Work Phone: [facility] 08-23-2012 influenza virus vacc ine, unspecified formulation Migdalia Cramer MD Work Phone: [facility] Work Phone: 11-22-2011 pneumococcal polysaccharide vaccine, 23 valent Migdalia Cramer MD Work Phone: [facility] 09-15-2011 influenza virus vacc ine, unspecified formulation Migdalia Cramer MD Work Phone: [facility] 09-03-2010 influenza virus vacc ine, unspecified formulation Migdalia Cramer MD Work Phone: [facility] Payers Date Payer Category Payer Self-pay 2020 Medicare UHC MEDICARE UHC MEDICARE ADVANTAGE PPO [id number] 2020-Present [phone] [address] [address] [place] [address] PPO [id number] 2020 Medicare UHC MEDICARE UHC MEDICARE ADVANTAGE PPO [id number] 2020-Present [phone] [address] [address] [place] [address] PPO [id number] 2020 Medicare (Managed Care) [facility] [place] [address] [id number] 2020 Medicare [id number] Unknown [id number] Unknown [id number] Unknown [id number] Unknown [id number] Unknown [id number] Unknown [id number] Unknown [id number] Unknown [id number] Unknown [id number] Social History Date Type Detail Facility Start: 09-16-2011 End: 10-23-2022 Tobacco smoking status NHIS Never smoked tobacco [facility] Start: 10-15-2021 End: 02-13-2025 Alcohol intake Current non-drinker of alcohol (finding) [facility] Start: 09-10-2020 End: 03-08-2023 History SDOH Alcohol Frequency 1 [facility] Start: 09-10-2020 End: 09-16-2020 History SDOH Social Connections Phone 5 [facility] Start: 09-10-2020 End: 09-16-2020 History SDOH Social Connections Get Together 2 [facility] Start: 09-10-2020 History SDOH Social Connections Scientologist 3 [facility] Start: 09-10-2020 History SDOH Social Connections Living 4 [facility] Start: 1935 Sex Assigned At Not on file [facility] Start: 11-09-2021 End: 12-09-2021 Exposure to SARS-CoV-2 (event) Unable to assess [facility] Start: 06-14-2021 End: 05-08-2022 Exposure to SARS-CoV-2 (event) Not sure [facility] Start: 09-16-2011 End: 10-23-2022 Tobacco use and exposure Smokeless tobacco non-user [facility] Start: 09-09-2020 End: 03-17-2023 [facility] Start: 09-09-2020 End: 03-17-2023 Social connection and isolation panel [facility] Do you belong to any clubs or organizations such as sabianist groups, unions, fraternal or athletic groups, or school groups? Yes [facility] Are you now , , , , never or living with a partner? [facility] How often to you hav e a drink containing alcohol? Never [facility] Average Number of Drinks Not on file [facility] Work Phone: Do you feel stress - tense, restless, nervous, or anxious, or unable to sleep at night because your mind is troubled all the time - these days [OSQ] Only a little [facility] (I/We) worried wheth er (my/our) food would run out before (I/we) got money to buy more. Never true [facility] Work Phone: In the past 12 month s, was there a time when you were not able to pay the mortgage or rent on time? No [facility] Tobacco smoking stat us NHIS Unknown if ever smoked [facility] Work Phone: Start: 02-14-2025 End: 02-21-2025 Sex Female (finding) [facility] Start: 1935 Sex Assigned At Female [facility] Medical Equipment Procedure Code Equipment Code Equipment Origin al Text Equipment Identifier Dates [id number], [id number], [id number] Start: 2019 End: 08-21-2024 Comment on above: USE DIRECTED TO T EST BLOOD SUGARS 3 TIMES A DAY Test blood sugar onc e daily Functional Status Date Assessment Result Facility 12-12-2024 Are you deaf, or do you have serious difficulty hearing No 12/12/2024 1:12 PM Petrona Arreguin RN No [facility] 12-12-2024 Are you blind, or do you have serious difficulty seeing, even when wearing glasses No 12/12/2024 1:12 PM Petrona Arreguin, LIT No [facility] 12-12-2024 Do you have serious difficulty walking or climbing stairs No 12/12/2024 1:12 PM Petrona Arreguin RN No [facility] 12-12-2024 Do you have difficul ty dressing or bathing No 12/12/2024 1:12 PM Petrona Arreguin RN No [facility] 12-12-2024 Because of a physica l, mental, or emotional condition, do you have difficulty doing errands alone such as visiting a physician's office or shopping No 12/12/2024 1:12 PM Petrona Arreguin RN No [facility] 03-09-2023 Are you deaf, or do you have serious difficulty hearing Yes 03/09/2023 4:15 PM Shannon Kraus RN Yes [facility] 03-09-2023 Are you blind, or do you have serious difficulty seeing, even when wearing glasses No 03/09/2023 4:15 PM Shannon Kraus RN No [facility] 03-09-2023 Do you have serious difficulty walking or climbing stairs Yes 03/09/2023 4:15 PM Shannon Kraus, LIT Yes [facility] 03-09-2023 Do you have difficul ty dressing or bathing Yes 03/09/2023 4:15 PM Shannon Kraus RN Yes [facility] 03-09-2023 Because of a physica l, mental, or emotional condition, do you have difficulty doing errands alone such as visiting a physician's office or shopping Yes 03/09/2023 4:15 PM Shannon Kraus LIT Yes [facility] Mental Status Date Assessment Result Facility 12-12-2024 Because of a physica l, mental, or emotional condition, do you have serious difficulty concentrating, remembering, or making decisions No 12/12/2024 1:12 PM Petrona Arreguin, LIT No [facility] 03-09-2023 Because of a physica l, mental, or emotional condition, do you have serious difficulty concentrating, remembering, or making decisions Yes 03/09/2023 4:15 PM EDT Shannon Stringer, LIT Yes [facility] Clinical Notes 05-25-2017 to 05-28-2025 Telephone Encounter - Lidia Carbajal LPN - 05/28/2025 2:07 PM EDTTelephone Encounter - Lidia Carbajal LPN - 05/28/2025 2:07 PM EDTSLien burgess DPM - 02/14/2025 9:04 AM EDTPatient Instructions Note Date & Type Note Facility 05-28-2025 Telephone encounter Note Received results of labs done on 05/27/2025 from [facility] (abnormal results in bold): CRP <3.00 0.0-3.0 sed rate 14 0-30 Report sent for scanning. [facility] 05-28-2025 Miscellaneous Notes Received results of labs done on 05/27/2025 from [facility] (abnormal results in bold): CRP <3.00 0.0-3.0 sed rate 14 0-30 Report sent for scanning. documented in this encounter [facility] 05-01-2025 Telephone encounter Note Received results of labs done on [facility] from 04/29/25 (abnormal results in bold): CRP 21.0 sed rate 32 Report sent for scanning. [facility] 05-01-2025 Miscellaneous Notes Received results of labs done on [facility] from 04/29/25 (abnormal results in bold): CRP 21.0 sed rate 32 Report sent for scanning. documented in this encounter [facility] 02-14-2025 Note [facility] 02-14-2025 History of Present illness Narrative Date of Visit: 02/13/2025 CHIEF COMPLAINT: Right ankle wound and RT heel pressure check SP OR right ankle incision and drainage and ulcer debridement 11/27/24 DM II, HgbA1c 10.4 (11/21/24) ADM 11/21/24-12/12/24 HISTORY OF PRESENT ILLNESS: Patient presents to the wound center for follow up since admission to [facility] 11/21/24 where she underwent [...] PT, but mostly non ambulatory currently at [facility]. Denies N/V/F/C/D/SOB/CP/LP HX S/p RT ankle I&D (DOS: 11/27/24) SOCIAL HISTORY: Smoking Status: Never smoker PHYSICAL EXAMINATION: Vascular Exam: Foot DP / PT pulses +2/4. CFT [...] pad every other day. She is at [facility] can WB AT continue offloading right heel, no signs pressure [...] by family members Home Care Company/Nursing Facility:[facility] Consent captured for debridement per Lien Bang DPM and alex until July 2025 Anticoagulant Therapy: N/A Living Situation (ie... 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 Bang in 2 weeks - Continue [...] of the right lateral ankle Sign In: 3306 A Moment of CARE was completed. Appropriate PPE (Personal Protective Equipment) worn by all providers involved with the procedure. Special equipment utilized curette . Patient/Surrogate Stated/Verified: Patient name, Date of , Relevant allergies, and The intended procedure Time Out: 6349 Relevant labs, photos, and/or imaging studies have [...] [facility] documented in this encounter [facility] 02-13-2025 Instructions Margie Steiner RN - 02/13/2025 1:29 PM EDT WOUND CARE INSTRUCTIONS- Yusuf Medina Wound location: Right Ankle [facility] HOME: - Wound Care Instructions: - Gather [...] for 1 additional month then stop Apply tubi-ranch hand livestock D to bilateral lower legs Apply a Single layer tubi-ranch hand livestock compression stocking to the right foot base of the toes to 1" below the back of the knee. Please [...] following changes to the Wound Center at [phone] or go to the Emergency Department: Fever or chills Increased drainage Green or yellow drainage Foul odor Increased pain Hardness around the wound Redness, warmth or swelling of the surrounding tissue Color change to the wound When contacting the wound center at the ([phone]): Leave a message that includes your full [...] emergency department. PLAN/ORDERS: - Return to the [facility] for a follow-up with life scientists Dr. Bang in 2 weeks - Continue [...] Lien Bang DPM/osvaldo/patrick documented in this encounter [facility] 02-13-2025 Note [facility] 02-11-2025 Telephone encounter Note Received results of labs done on 02/04/2025 from [facility] (abnormal results in bold): sed rate 23 0-30 Report sent for scanning. [facility] 02-11-2025 Miscellaneous Notes Received results of labs done on 02/04/2025 from [facility] (abnormal results in bold): sed rate 23 0-30 Report sent for scanning. documented in this encounter [facility] 01-18-2025 Telephone encounter Note Noted Willie Kaur APRN.CNP [facility] 01-18-2025 Miscellaneous Notes Noted Willie Kaur APRN.CNP Contacted [facility] spoke with Gabbie (nurse), I asked to clarify patient's medication or send updated med list. She states" We don't need anything from you She's living here permanently & uses primary care in-house doc." No further information was given or obtained. Chart indicates that she is at [facility], phone number on a fax recently received indicates the SNF is [phone]. Please call the facility that she is at to verify which cholesterol medicine she is taking since caregiver Demetria is not currently in chare of medication administration and can't clarify pravachol vs lipitor. Thank you. Willie Kaur APRN.CNP/ Relative Demetria states the patient is in a [facility] now, so she needs someone to reach out to her because she states they are giving her different medications at the [facility]. Please reach out to her at [phone] Attempted to contact relative Demetria with no success. Left VM requesting call back. If relative returns call, please clarify prescription. Images from the original note were not included. Pended med is Pravastatin (Pravachol). Epic med list indicates atorvastatin (Lipitor). Please clarify which patient is taking. Willie Kaur APRN.DRAKE Patient has been identified [...] Jame Hernandez MA documented in this encounter [facility] 01-18-2025 Telephone encounter Note Contacted [facility] spoke with Gabbie (nurse), I asked to clarify patient's medication or send updated med list. She states" We don't need anything from you She's living here permanently & uses primary care in-house doc." No further information was given or obtained. [facility] 01-18-2025 Telephone encounter Note Chart indicates that she is at [facility], phone number on a fax recently received indicates the SNF is [phone]. Please call the facility that she is at to verify which cholesterol medicine she is taking since caregiver Demetria is not currently in chare of medication administration and can't clarify pravachol vs lipitor. Thank you. Willie Kaur APRN.LICENSED MARRIAGE AND FAMILY THERAPIST/ [facility] 01-17-2025 Telephone encounter Note Relative Demetria states the patient is in a [facility] now, so she needs someone to reach out to her because she states they are giving her different medications at the [facility]. Please reach out to her at [phone] [facility] 01-17-2025 Telephone encounter Note Attempted to contact celeste Augustin with no success. Left VM requesting call back. If relative returns call, please clarify prescription. [facility] 01-17-2025 Note [facility] 01-17-2025 History of Present illness Narrative Date of Visit: 01/16/2025 CHIEF COMPLAINT: Right ankle wound and RT heel pressure check SP OR right ankle incision and drainage and ulcer debridement 11/27/24 DM II, HgbA1c 10.4 (11/21/24) ADM 11/21/24-12/12/24 HISTORY OF PRESENT ILLNESS: Patient presents to the wound center for follow up since admission to [facility] 11/21/24 where she underwent [...] PT, but mostly non ambulatory currently at [facility]. Denies N/V/F/C/D/SOB/CP/LP HX S/p RT ankle I&D [...] negative pressure. To continue wound vac at [place]. Removed vac dressing and debrided wound today. [...] tubigrip every other day. She is at [facility] can WB AT continue offloading [...] by family members Home Care Company/Nursing Facility:[facility] Consent captured for debridement per Lien Bang DPM and good until July 2025 Anticoagulant Therapy: N/A Living Situation (ie... 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 DME: Facility SPECIAL NEEDS: Coordination of care N/A Emotional support N/A OR set-up N/A Pharmacy Operations Specialist N/A Incontinence needs N/A DISCHARGED in stable condition to: Arrived via wheelchair accompanied by family & aide PLAN/ORDERS: - Return to the [facility] for a follow-up with life scientists Dr. Bang in 2 weeks - Follow-up [...] Nanette Welch RN/fm documented in this encounter [facility] 01-17-2025 Telephone encounter Note Images from the original note were not included. Pended med is Pravastatin (Pravachol). Epic med list indicates atorvastatin (Lipitor). Please clarify which patient is taking. Willie Kaur APRN.DRAKE [facility] 01-16-2025 Telephone encounter Note Patient has [...] Please review and advise. Jame Hernandez MA [facility] 01-16-2025 Instructions Nanette Welch RN - 01/16/2025 1:12 PM EST WOUND CARE INSTRUCTIONS- Yusuf Medina Wound location: Right Ankle [facility]: - Please re-apply wound VAC today [...] the wound base. - Cover with 4x4 Topaz SAP bordered foam or equivalent dressing. - Change your dressing every other day or as needed to maintain a clean, dry and intact dressing. Apply a Single layer tubi-ranch hand livestock compression stocking to the right foot base of the toes to 1" below the back of the knee. Please [...] following changes to the Wound Center at [phone] or go to the Emergency Department: Fever or chills Increased drainage Green or yellow drainage Foul odor Increased pain Hardness around the wound Redness, warmth or swelling of the surrounding tissue Color change to the wound When contacting the wound center at the ([phone]): Leave a message that includes your full [...] emergency department. PLAN/ORDERS: - Return to the [facility] for a follow-up with life scientists Dr. Bang in 2 weeks - Follow-up [...] Bang DPM /mh/fm documented in this encounter [facility] 01-16-2025 Note [facility] 01-08-2025 Telephone encounter Note Per Alon-- Labs rev Lockhart stop date today PICC removal in the [...] the picc line after the last dose. [facility] 01-08-2025 Miscellaneous Notes Per Alon-- Labs rev Lockhart stop date today PICC removal in the [...] has an appt today with Alon at [facility]. She's currently on Cefazolin 2g iv q8 [...] the M drive Spoke to the nurse, naveen Cartwright requested Dec 17 labs wnl The differential wasn't done on the cbc The AUTOMOTIVE TEACHER has added it on moving forward The results were attached to the M drive Spoke to the AUTOMOTIVE TEACHERnaveen requested Lilo from [facility] called [phone] to schedule the follow up, [facility] and [facility]/08 for the schedule date. Delfina Elias Yusuf is still inpt at [facility] She will be d/c to [facility] [phone] Summary: COPAT ACTION-FOR IDC USE ONLY Images from the original note were not included. 11/28/2024 8:48 PM Pierce LANGFORD PROVIDER ADULT [id number] Patient Info Patient Name Sex Yusuf Medina ([id number]) Female 1935 Encounter Notes Progress Notes by Pierce Chi MD, encounter date 11/28/2024: Progress Notes [facility] Outpatient Parenteral Antimicrobial Therapy (OPAT) Start Form Patient Info Patient MRN Patient Name Address Date of [id number] Yusuf Medina [address] [id number] 1935 Start Date 11/28/2024 Physician Group [facility] [...] Monitoring Treatment Course Pierce Chi MD Address [address] [place] [address] Prescribing Provider's signature - electronically signed by Pierce Chi MD on 11/28/24 at 8:50 PM documented in this encounter [facility] 01-08-2025 Note [facility] 01-08-2025 History of Present illness Narrative [...] or type II) CATIE PLAN: Labs rev Lockhart stop date today PICC removal in the [...] by family members Home Care Company/Nursing Facility:[facility] Consent captured for debridement per Lien Bang DPM and alex until December 2024 Anticoagulant Therapy: N/A Living Situation (ie... 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 DME: Facility SPECIAL NEEDS: Coordination of care N/A Emotional support N/A OR set-up N/A Pharmacy Operations Specialist N/A Incontinence needs N/A DISCHARGED in stable condition to: Arrived via wheelchair accompanied by family & aide PLAN/ORDERS: - Return to the [facility] for a follow-up with life scientists Dr. Bang on January 16 at 1:00 [...] - Please follow-up with your PCP or shiftman about your elevated blood pressure readings. - [...] Cinthia Dao RN/TC documented in this encounter [facility] 01-08-2025 Instructions Cinthia Dao RN - 01/08/2025 12:51 PM EST WOUND CARE INSTRUCTIONS- Yusuf Carol Wound location: Right Ankle [facility] HOME: - Please re-apply wound VAC [...] clean, dry and intact dressing. Apply a 4" CHENG wrap to the left foot & 6" CHENG wrap to the right calf, 1" below the back of the knee. Please [...] following changes to the Wound Center at [phone] or go to the Emergency Department: Fever or chills Increased drainage Green or yellow drainage Foul odor Increased pain Hardness around the wound Redness, warmth or swelling of the surrounding tissue Color change to the wound When contacting the wound center at the ([phone]): Leave a message that includes your full [...] emergency department. PLAN/ORDERS: - Return to the [facility] for a follow-up with life scientists Dr. Bang on January 16 at 1:00 [...] - Please follow-up with your PCP or shiftman about your elevated blood pressure readings. - If you have any questions or concerns that cannot be answered with the following information, please follow the instructions listed above on how to contact the wound center. Pierce Chi MD/ALANA/JOHN documented in this encounter [facility] 01-08-2025 Note [facility] 01-08-2025 Telephone encounter Note Yusuf has an appt today with Alon at [facility]. She's currently on Cefazolin 2g iv q8 with a stop date for today. [facility] 01-07-2025 Telephone encounter Note Jan 07 labs reviewed, no changes The creat was never done The results were attached to the M drive [facility] 01-04-2025 Telephone encounter Note Received record release from [facility]. Faxed to number provided on form, confirmation fax received. [facility] 01-04-2025 Miscellaneous Notes Received record release from [facility]. Faxed to number provided on form, confirmation fax received. The initial note indicates that a "outbound call center representative" is calling and gave return phone number [phone]. I called this number and phone rang and rang numerous times. No voice mail. I can print of POA, stamp and fax since this is a facility to facility request. Given to nursing. If the "outbound call center representative" needs anything else and calls back, Please ask for name and direct line so that return call can be made. Thank you. Willie Kaur APRN.CNP Spoke with a ward secretary at [facility], he took the info again to get us a signed records release faxed to the office. Please watch for fax Please advise [facility] that if patient signs record release, they can get any records they need from [facility] medical records. Or family can sign record request at [facility] can fax Family Medicine the records request and I can send what I can. Our fax is [phone]. Willie Kaur APRN.CNP Records release was not signed. Please review and advice. Received call from [facility]. The outbound call center representative has appointment with patient's sons this afternoon at 2 pm and is requesting Advanced Directive/POA paperwork that was scanned in on 12/31. Advised to send records request, but she is concerned about not having this paperwork by 2 pm meeting. Kitchen Mechanic can be reached at [phone]. Fax number given for records request as well. documented in this encounter [facility] 01-04-2025 Telephone encounter Note The initial note indicates that a "outbound call center representative" is calling and gave return phone number [phone]. I called this number and phone rang and rang numerous times. No voice mail. I can print of POA, stamp and fax since this is a facility to facility request. Given to nursing. If the "outbound call center representative" needs anything else and calls back, Please ask for name and direct line so that return call can be made. Thank you. Willie Kaur APRN.DRAKE [facility] 01-04-2025 Telephone encounter Note Spoke with a ward secretary at [facility], he took the info again to get us a signed records release faxed to the office. Please watch for fax [facility] 01-04-2025 Telephone encounter Note Please advise [facility] that if patient signs record release, they can get any records they need from [facility] medical records. Or family can sign record request at [facility] can fax Family Medicine the records request and I can send what I can. Our fax is [phone]. Willie Kaur APRN.DRAKE [facility] 01-04-2025 Note HNO ID: [id number] Author: TYESHA SINGLETON MD Service: ? Author [...] with dramatic improvement Currently she is in [place] and here with AVELINA and nurse aid who gives the history Currently she is pain free Also spoke with [place] nurse [place] who states patient does nto complain of pain, pretty sedentary. No specific complaints [place] per nurse Currently doing well, no pain at present Family states after debridement of rt ankle- patient feels weak and does not want to walk around Was living alone until 2 months ago and now at [place]. Prior to debridement , patient was not [...] L REMV CATARACT EXTRACAP,INSERT LENS Bilateral 2020 [facility] predniSONE (DELTASONE) 5 mg tablet Take 5 [...] Sister None B (more content not included)... [facility] 01-04-2025 History of Present illness Narrative Yusuf [...] with dramatic improvement Currently she is in [place] and here with AVELINA and nurse aid who gives the history Currently she is pain free Also spoke with her nurse [place] who states patient does nto complain of pain, pretty sedentary. No specific complaints at [place] per nurse Currently doing well, no pain at present Family states after debridement of rt ankle- patient feels weak and does not want to walk around Was living alone until 2 months ago and now at [place]. Prior to debridement , patient was not [...] L REMV CATARACT EXTRACAP,INSERT LENS Bilateral 2020 [facility] predniSONE (DELTASONE) 5 mg tablet Take 5 [...] every day prn -written instructions given to [place] as well as verbal instructions to family and nurse who is taking care of her at [place] 2. Rt ankle cellulitis and osteomyelitis -currently [...] Swollen Glands: No documented in this encounter [facility] 01-03-2025 Telephone encounter Note Records release was not signed. Please review and advice. [facility] 01-03-2025 Telephone encounter Note Received call from [facility]. The outbound call center representative has appointment with patient's sons this afternoon at 2 pm and is requesting Advanced Directive/POA paperwork that was scanned in on 12/31. Advised to send records request, but she is concerned about not having this paperwork by 2 pm meeting. Kitchen Mechanic can be reached at [phone]. Fax number given for records request as well. [facility] 01-02-2025 Telephone encounter Note SOCIAL WORK Date of Service: Thursday January 02, 2025 [facility] Financial Recording Clerk (SW) Aditi Lopez attempted to contact Yusuf Medina by phone using paraprofessional interpreter services to complete the distress assessment. Yusuf has been diagnosed with Normocytic anemia. She flagged for moderate depression on 12-31-24. 08/14/2018 11/21/2024 2024 PHQ-9 Score 9 13 12 LYRIC spoke with Yusuf's family member Mercedes. She advised that Yusuf is in a [facility] facility. Mercedes advised that she completed the questionnaire without the patient. She also noted that Yusuf will most likely not understand the [place]an paraprofessional interpreter because she speaks a different dialect. At this time, social work service is declined/deferred based on: she pt is at a SNF and family member completed the questionnaire. Please re-consult social work if any other psychosocial needs arise. Unable To Reach Patient PLAN: Follow up on an as needed basis ALEJANDRO Encarnacion [facility] Work Phone: 01-02-2025 Miscellaneous Notes SOCIAL WORK Date of Service: Thursday January 02, 2025 [facility] Financial Recording Clerk (SW) Aditi Lopez attempted to contact Yusuf Medina by phone using paraprofessional interpreter services to complete the distress assessment. Yusuf has been diagnosed with Normocytic anemia. She flagged for moderate depression on 12-31-24. 08/14/2018 11/21/2024 2024 PHQ-9 Score 9 13 12 SW spoke with Yusuf's family member Mercedes. She advised that Yusuf is in a [facility] facility. Mercedes advised that she completed the questionnaire without the patient. She also noted that Yusuf will most likely not understand the [place]an paraprofessional interpreter because she speaks a different dialect. At this time, social work service is declined/deferred based on: she pt is at a SNF and family member completed the questionnaire. Please re-consult social work if any other psychosocial needs arise. Unable To Reach Patient PLAN: Follow up on an as needed basis ALEJANDRO Encarnacion documented in this encounter [facility] 01-02-2025 Instructions Grupo Mendez MD - 01/02/2025 9:19 AM EST Hemoglobin was low at 7.8 Obtaining repeat lab to determine if blood transfusion needed and if needs nutrient support for anemia Recommend repeating blood counts once weekly for next 6 weeks starting next week Please schedule follow-up with Dr. Mendez in 7 weeks For scheduling questions, please call [phone] (tests and appointments). Ask for the oncology recruiting scheduler. For symptom management or care coordination questions, please call Renetta at [phone] or use my chart to reach us. After hours with medical questions, please call the doctor on-call at [phone]. Thank you, Grupo Mendez MD documented in this encounter [facility] 01-02-2025 Note HNO ID: [id number] Author: GRUPO MENDEZ MD Service: ? Author [...] L REMV CATARACT EXTRACAP,INSERT LENS Bilateral 2020 [facility] FAMILY HISTORY Problem Relation Age of Onset [...] (3 mL) I (more content not included)... [facility] 01-02-2025 History of Present illness Narrative Referring physician: Dr. Migdalia Cramer Presenting complaint: Patient Yusuf Medina returns for follow-up on leukocytosis, anemia. ASSESSMENT: (Q11.602) Leukocytosis, unspecified type (primary encounter diagnosis) Comment: [...] L REMV CATARACT EXTRACAP,INSERT LENS Bilateral 2020 [facility] FAMILY HISTORY Problem Relation Age of Onset [...] Range Status 01/02/2025 5.9 % Final Abs [place] Date Value Ref Range Status 01/02/2025 0.61 [...] today's encounter, 01/02/2025) documented in this encounter [facility] 2024 Telephone encounter Note Dec 31 labs reviewed, no changes The results were attached to the M drive [facility] 12-27-2024 Note [facility] 12-27-2024 History of Present illness Narrative Date of Visit: 12/26/2024 CHIEF COMPLAINT: Right ankle wound and NEW RT heel pressure ulcer OR right ankle incision and drainage and ulcer debridement 11/27/24 DM II, HgbA1c 10.4 (11/21/24) ADM 11/21/24-12/12/24 HISTORY OF PRESENT ILLNESS: Patient presents to the wound center for first follow up since admission to [facility] where she underwent [...] distal Foot Dermatologic Exam: RT ankle lateral incision [...] unsuccessful, became inflamed and infected. Patient arrived via:[facility]/Nursing Facility:[facility] rehab until 01/08 for IV abx Consent captured for debridement per Lien Bang DPM and alex until December 2024. Special Instructions (for example, patient stands at the bedside for exam/dressing): Anticoagulant Therapy:n/a Living Situation (ie... 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 Yusuf Robles's sons and are in town to make an assessment whether she is able to go home from rehab. Can you talk with them to help with their decision? Please call Nathaniel Medina at [phone]. They are here till Tuesday 12 noon. Thank you. documented in this encounter [facility] 12-26-2024 Telephone encounter Note Contacted kyrie Nathaniel--advised we do not have POA from pt to disclose health information to him Advised Nathaniel that the rehab team will need to make determination if pt is able to be discharged from rehab, we are unable to make that decision or act on pt behalf until she is discharged. Nathaniel states he will get a POA to act on pt's behalf [facility] 12-26-2024 Telephone encounter Note Dec 24 labs reviewed, no changes The results were attached to the M drive [facility] 12-26-2024 Telephone encounter Note Addressed in other encounter. Willie Kaur APRN.LICENSED MARRIAGE AND FAMILY THERAPIST [facility] 12-26-2024 Miscellaneous Notes Addressed in other encounter. Willie Kaur APRN.LICENSED MARRIAGE AND FAMILY THERAPIST documented in this encounter [facility] 12-26-2024 Instructions Sravanthi Hollis RN - 12/26/2024 1:09 PM EST WOUND CARE INSTRUCTIONS- Yusuf Medina Wound location: Right ankle [facility] -PLEASE CONTINUE WOUND VAC PREVIOUS ON THE [...] following changes to the Wound Center at [phone] or go to the Emergency Department: Fever or chills Increased drainage Green or yellow drainage Foul odor Increased pain Hardness around the wound Redness, warmth or swelling of the surrounding tissue Color change to the wound When contacting the wound center at the ([phone]): Leave a message that includes your full [...] to be scheduled through Central Scheduling. Call [phone].(If applicable) Please be aware that the Covid19 exposure questions will be asked as you enter the hospital and as you arrive to each area. Thank you for your patience and understanding as we attempt to protect our patients during this difficult time. Lien Bang DPM/fhm/tc documented in this encounter [facility] 12-26-2024 Note [facility] 12-26-2024 Telephone encounter Note I wish [...] and physical safety for discharge. Willie Kaur APRN.LICENSED MARRIAGE AND FAMILY THERAPIST [facility] 12-26-2024 Telephone encounter Note Spoke to the nurse, naveen Cartwright [facility] 12-26-2024 Telephone encounter Note Patients caregiver demetria tapia calling to have her [employer] message she sent below addressed. Yusuf Robles's sons and are in town to make an assessment whether she is able to go home from rehab. Can you talk with them to help with their decision? Please call Nathaniel Medina at [phone]. They are here till Tuesday 12 noon. Thank you. [facility] Work Phone: 12-25-2024 Telephone encounter Note The following approved medication requests have been transmitted electronically. Requested Prescriptions Signed Prescriptions Disp Refills amLODIPine (NORVASC) 5 mg tablet 90 tablet 3 Sig: TAKE 1 TABLET BY MOUTH ONCE DAILY Authorizing Provider: WILLIE KAUR APRN.LICENSED MARRIAGE AND FAMILY THERAPIST [facility] 12-25-2024 Miscellaneous Notes The following approved medication requests have been transmitted electronically. Requested Prescriptions Signed Prescriptions Disp Refills amLODIPine (NORVASC) 5 mg tablet 90 tablet 3 Sig: TAKE 1 TABLET BY MOUTH ONCE DAILY Authorizing Provider: WILLIE KAUR APRN.LICENSED MARRIAGE AND FAMILY THERAPIST Patient has been identified by name and [...] Aditi Phan LPN documented in this encounter [facility] 12-25-2024 Telephone encounter Note Patient has [...] Please review and advise. Aditi Phan LPN [facility] 12-20-2024 Telephone encounter Note Dec 17 labs wnl The differential wasn't done on the cbc The AUTOMOTIVE TEACHER has added it on moving forward The results were attached to the M drive [facility] 12-20-2024 Telephone encounter Note Spoke to the AUTOMOTIVE TEACHERnaveen requested [facility] 12-13-2024 Telephone encounter Note Lilo from [facility] called [phone] to schedule the follow up, [facility] and [facility]/08 for the schedule date. Delfina Elias [facility] 12-11-2024 Note [facility] 12-10-2024 Telephone encounter Note Yusuf is still inpt at [facility] She will be d/c to [facility] [phone] [facility] 12-10-2024 Note [facility] 12-10-2024 Note [facility] 12-09-2024 Note [facility] 12-09-2024 Note [facility] 12-08-2024 Note [facility] 12-07-2024 Note [facility] 12-07-2024 Note [facility] 12-06-2024 Note [facility] 12-05-2024 Note [facility] 12-04-2024 Note [facility] 12-03-2024 Note [facility] 12-02-2024 Note [facility] 12-01-2024 Note [facility] 12-01-2024 Note [facility] 12-01-2024 Note [facility] 11-30-2024 Note [facility] 11-29-2024 Note [facility] 11-29-2024 Telephone encounter Note Summary: COPAT ACTION-FOR IDC USE ONLY Images from the original note were not included. 11/28/2024 8:48 PM Pierce Chi [place] PROVIDER ADULT [id number] Patient Info Patient Name Sex Yusuf Medina ([id number]) Female 1935 Encounter Notes Progress Notes by Pierce Chi MD, encounter date 11/28/2024: Progress Notes [facility] Outpatient Parenteral Antimicrobial Therapy (OPAT) Start Form Patient Info Patient MRN Patient Name Address Date of [id number] Yusuf Medina [address] [id number] 1935 Start Date 11/28/2024 Physician Group [facility] [...] Monitoring Treatment Course Pierce Chi MD Address [address] [place] [address] Prescribing Provider's signature - electronically signed by Pierce Chi MD on 11/28/24 at 8:50 PM [facility] 11-29-2024 Note [facility] 11-28-2024 Note [facility] 11-28-2024 History of Present illness Narrative Images from the original note were not included. [facility] Outpatient Parenteral Antimicrobial Therapy (OPAT) Start Form Patient Info Patient MRN Patient Name Address Date of [id number] Yusuf Medina [address] [facility] [id number] 1935 Start Date 11/28/2024 Physician Group [facility] [...] Monitoring Treatment Course Pierce Chi MD Address [address] [place] [id number] Prescribing Provider's signature - electronically signed by Pierce Chi MD on 11/28/24 at 8:50 PM documented in this encounter [facility] 11-28-2024 Note [facility] 11-28-2024 Note [facility] 11-27-2024 Telephone encounter Note The following approved medication requests have been transmitted electronically. Requested Prescriptions Signed Prescriptions Disp Refills metFORMIN (GLUCOPHAGE) 850 mg tablet 180 tablet 3 Sig: TAKE 1 TABLET BY MOUTH TWICE DAILY WITH MEALS Authorizing Provider: WILLIE KAUR APRN.CNP [facility] 11-27-2024 Miscellaneous Notes The following approved [...] Martina Tucker MA documented in this encounter [facility] 11-27-2024 Note [facility] 11-27-2024 Telephone encounter Note Patient has [...] Please review and advise. Martina Tucker MA [facility] 11-26-[address] Mendez reviewed labs from [facility]. Dr. Mendez recommended for patient to be seen around mid Dec 2024 as hem/onc follow-up. Grupo Mendez MD November 26, 2024 5:33 PM [facility] Work Phone: 11-26-[address] Mendez reviewed labs from [facility]. Dr. Mendez recommended for patient to be seen around mid Dec 2024 as hem/onc follow-up. Grupo Mendez MD November 26, 2024 5:33 PM Spoke w/ pt conditioner tumbler operatorDemetria. Pt is still inpatient. When she is discharged she will be sent to a rehab and will not be able to make appts. Any time soon. Please advise for further requirements. documented in this encounter [facility] 11-26-2024 Note [facility] 11-26-2024 Telephone encounter Note Spoke w/ pt conditioner tumbler operatorDemetria. Pt is still inpatient. When she is discharged she will be sent to a rehab and will not be able to make appts. Any time soon. Please advise for further requirements. [facility] 11-26-2024 Note [facility] 11-25-2024 Note [facility] 11-24-2024 Note [facility] 11-23-2024 Note [facility] 11-23-2024 Note [facility] 11-22-2024 Note [facility] 11-21-2024 Note [facility] 11-21-2024 Telephone encounter Note Currently has appointment in Rheumatology 01/04/25 to evaluate for inflammatory arthritis. There was a Hematology appointment scheduled 12/03/24, but rescheduled by family due to location. MRI ankle 11/19/24 ordered by Orthopedics. Patient sent My Chart message to Orthopedics 11/20/24. I reminded patient/family that My Chart can take up to 72 business hours for response. Willie Kaur APRN.LICENSED MARRIAGE AND FAMILY THERAPIST [facility] 11-21-2024 Miscellaneous Notes Currently has appointment in Rheumatology 01/04/25 to evaluate for inflammatory arthritis. There was a Hematology appointment scheduled 12/03/24, but rescheduled by family due to location. MRI ankle 11/19/24 ordered by Orthopedics. Patient sent My Chart message to Orthopedics 11/20/24. I reminded patient/family that My Chart can take up to 72 business hours for response. Willie Kaur APRN.LICENSED MARRIAGE AND FAMILY THERAPIST documented in this encounter [facility] 11-19-2024 History of Present illness Narrative [...] PATIENT PRESENTS WITH AN IMPLANTABLE OR ATTACHED YARD CONDUCTOR: No RADIOLOGY DEPARTMENT: MR; Exam(s) Completed: Lower MSK: Ankle/Hind Foot, right PERIPHERAL IV DATA: Not applicable SIGNED BY: FRANCIS Tierney November 19, 2024 10:07 AM documented in this encounter [facility] 11-19-2024 Note HNO ID: [id number] Author: YAZ MAYFIELD MRI Tech Service: Radiology Author Type: Library Specialist Type: Progress Notes Filed: 11/19/2024 10:08 Note [...] PATIENT PRESENTS WITH AN IMPLANTABLE OR ATTACHED YARD CONDUCTOR: No RADIOLOGY DEPARTMENT: MR; Exam(s) Completed: Lower MSK: Ankle/Hind Foot, right PERIPHERAL IV DATA: Not applicable SIGNED BY: FRANCIS Tierney November 19, 2024 10:07 AM [facility] 11-06-2024 Telephone encounter Note Patient took a sooner appt in November. [facility] 11-06-2024 Miscellaneous Notes Patient took a sooner appt in November. Currently has Rheumatology scheduled 01/04/25. Are there any sooner appointments and would family be interested? She has been seeing Hematology and they think that her abnormal blood work may have a Rheumatology cause. Willie Kaur APRN.DRAKE documented in this encounter [facility] 11-06-2024 Telephone encounter Note Currently has Rheumatology scheduled 01/04/25. Are there any sooner appointments and would family be interested? She has been seeing Hematology and they think that her abnormal blood work may have a Rheumatology cause. 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 Patient is leaving to [place] for 2 weeks I will schedule lab on 11/21/2024 and see her on 11/22/2024 at 9:10 AM for iron deficiency (this is separate issue). Renetta with care coordination will kindly help with arranging lab and follow-up as above. Patient and family aware of my plan. 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 Patient is leaving to [place] for 2 weeks I will schedule lab on 11/21/2024 and see her on 11/22/2024 at 9:10 AM for iron deficiency (this is separate issue). Renetta with care coordination will kindly help with arranging lab and follow-up as above. Patient and family aware of my plan. Grupo Mendez MD November 05, 2024 6:55 PM documented in this encounter [facility] 11-01-2024 Note Addended by: SIMONE AGUILAR on: 11/01/2024 03:34 PM Modules accepted: Orders [facility] 11-01-2024 Miscellaneous Notes Addended by: SIMONE KEVIN on: 11/01/2024 03:34 PM Modules accepted: Orders documented in this encounter [facility] 11-01-2024 Note HNO ID: [id number] Author: SIMONE KEVIN MD Service: ? Author [...] L REMV CATARACT EXTRACAP,INSERT LENS Bilateral 2020 [facility] Family History: FAMILY HISTORY Problem Relation Age of Onset None Brother None Sister None Brother Medications: Current Outpatient Medications Medication Sig meloxicam (MOBIC) 15 mg tablet TAKE 1 TABLET BY MOUTH ONCE DAILY NEEDED FOR PAIN. DO NOT COMBINE WITH DICLOFENAC GEL traZODone (DESYREL) 50 mg tablet Take 1 tablet by mouth at bedtime as needed for sedation. blood sugar diagnostic (eMotion TechnologiesUCH ULTRA TEST) test strip Test blood [...] her anatomy B (more content not included)... [facility] 11-01-2024 History of Present illness Narrative November [...] L REMV CATARACT EXTRACAP,INSERT LENS Bilateral 2020 [facility] Family History: FAMILY HISTORY Problem Relation Age of Onset None Brother None Sister None Brother Medications: Current Outpatient Medications Medication Sig meloxicam (MOBIC) 15 mg tablet TAKE 1 TABLET BY MOUTH ONCE DAILY NEEDED FOR PAIN. DO NOT COMBINE WITH DICLOFENAC GEL traZODone (DESYREL) 50 mg tablet Take 1 tablet by mouth at bedtime as needed for sedation. blood sugar diagnostic ([employer]UCH ULTRA TEST) test strip Test blood [...] next visit: No P[place]: [place] [id number] [facility] [address] FELLOW / RESIDENT: No fellow or resident assisted in this office visit. Simone Kevin MD documented in this encounter [facility] 10-29-2024 Note HNO ID: [id number] Author: AB BENSON MD Service: ? Author Type: Physician Type: Progress Notes Filed: 11/04/2024 19:29 Note Text: This note was created using NoteWriter. Subjective Yusuf Medina is a 88 year [...] and family voiced understanding. Ab Benson MD [facility] 10-29-2024 History of Present illness Narrative Images from the original note were not included. This note was created using Thismomentriter. Subjective Yusuf Medina is a 88 year [...] Ab Benson MD documented in this encounter [facility] 10-12-2024 Telephone encounter Note The following approved medication requests have been transmitted electronically. Requested Prescriptions Signed Prescriptions Disp Refills meloxicam (MOBIC) 15 mg tablet 90 tablet 3 Sig: TAKE 1 TABLET BY MOUTH ONCE DAILY NEEDED FOR PAIN. DO NOT COMBINE WITH DICLOFENAC GEL Authorizing Provider: WILLIE KAUR APRN.LICENSED MARRIAGE AND FAMILY THERAPIST [facility] 10-12-2024 Miscellaneous Notes The following approved [...] Martina Tucker MA documented in this encounter [facility] 10-12-2024 Telephone encounter Note Patient has [...] Please review and advise. Martina Tucker MA [facility] 09-20-2024 History of Present illness Narrative September 20, 2024 HPI: uYsuf Medina is a 88 yo female with [...] L REMV CATARACT EXTRACAP,INSERT LENS Bilateral 2020 [facility] Family History: FAMILY HISTORY Problem Relation Age of Onset None Brother None Sister None Brother Medications: Current Outpatient Medications Medication Sig traZODone (DESYREL) 50 mg tablet Take 1 tablet by mouth at bedtime as needed for sedation. blood sugar diagnostic (Performable ULTRA TEST) test strip Test blood sugar [...] next visit: No [place]: [place] [id number] [facility] [id number] FELLOW / RESIDENT: No fellow or resident assisted in this office visit. Simone Kevin MD documented in this encounter [facility] 09-20-2024 Note HNO ID: [id number] Author: SIMONE KEVIN MD Service: ? Author [...] L REMV CATARACT EXTRACAP,INSERT LENS Bilateral 2020 [facility] Family History: FAMILY HISTORY Problem Relation Age [...] May have so (more content not included)... [facility] 09-19-2024 History of Present illness Narrative Radiology [...] PATIENT PRESENTS WITH AN IMPLANTABLE OR ATTACHED YARD CONDUCTOR: No RADIOLOGY DEPARTMENT: General X-ray: Exam(s) Completed: Lower Extremity X-Ray(s): Foot, Right and Wt. Bearing and Heel, Right and Wt. Bearing PERIPHERAL IV DATA: Not applicable SIGNED BY: RUT Hui September 19, 2024 2:13 PM documented in this encounter [facility] 09-19-2024 Note HNO ID: [id number] Author: ZAID KUHN CT Service: Radiology Author [...] PATIENT PRESENTS WITH AN IMPLANTABLE OR ATTACHED YARD CONDUCTOR: No RADIOLOGY DEPARTMENT: General X-ray: Exam(s) Completed: Lower Extremity X-Ray(s): Foot, Right and Wt. Bearing and Heel, Right and Wt. Bearing PERIPHERAL IV DATA: Not applicable SIGNED BY: RUT Hui September 19, 2024 2:13 PM [facility] 09-18-2024 Telephone encounter Note Results were reviewed. I spoke with rnkpue-vs-clb Demetria about suspicion for calcaneal bone fracture. Orders Signed This Visit (1) CONSULT PANEL TO ORTHOPAEDICS STAT, Dx: 1. Right ankle swelling 2. Closed nondisplaced fracture of right calcaneus, unspecified portion of calcaneus, initial encoungogo Mendez MD September 18, 2024 9:19 PM [facility] 09-18-2024 Miscellaneous Notes Results were reviewed. I spoke with uaidml-fi-aed Demetria about suspicion for calcaneal bone fracture. Orders Signed This Visit (1) CONSULT PANEL TO ORTHOPAEDICS STAT, Dx: 1. Right ankle swelling 2. Closed nondisplaced fracture of right calcaneus, unspecified portion of calcaneus, initial encounte Grupo Mendez MD September 18, 2024 9:19 PM documented in this encounter [facility] 09-18-2024 History of Present illness Narrative [...] PATIENT PRESENTS WITH AN IMPLANTABLE OR ATTACHED YARD CONDUCTOR: No RADIOLOGY DEPARTMENT: Ultrasound PERIPHERAL IV DATA: Not applicable SIGNED BY: Christina Tucker RDMS September 18, 2024 8:37 AM documented in this encounter [facility] 09-18-2024 Note [facility] 09-17-2024 Telephone encounter Note This was addressed in hematology appointment in [place]. Closing this encounter [facility] 09-17-2024 Miscellaneous Notes This was addressed in hematology appointment in [place]. Closing this encounter Vm left for patient's son. She has an appointment today in [place]-can Yusuf go to express care there after hematology? documented in this encounter [facility] 09-17-2024 Instructions Grupo Mendez MD - 09/17/2024 3:52 PM EST Please schedule Xray right ankle today Please schedule STAT US DVT right lower leg tomorrow Please send patient to lab today For scheduling questions, please call [phone] (tests and appointments). Ask for the oncology recruiting scheduler. For symptom management or care coordination questions, please call Renetta Holder at [phone] or use my chart to reach us. After hours with medical questions, please call the doctor on-call at [phone]. Thank you, Grupo Mendez MD documented in this encounter [facility] 09-17-2024 History of Present illness Narrative Consultation requested by Dr. Migdalia Cramer for an opinion regarding leukocytosis. My final recommendations will be communicated back to the requesting physician by way of shared Medical record or letter to requesting physician via US mail. Presenting complaint: Patient Yusuf Medina was sent to my office to be evaluated for leukocytosis. ASSESSMENT: (D72.140) Leukocytosis, unspecified type (primary encounter diagnosis) Comment: [...] L REMV CATARACT EXTRACAP,INSERT LENS Bilateral 2020 [facility] FAMILY HISTORY Problem Relation Age of Onset [...] as needed for sedation. blood sugar diagnostic (eMotion TechnologiesUCH ULTRA TEST) test strip Test blood [...] Range Status 09/17/2024 5.5 % Final Abs [place] Date Value Ref Range Status 09/17/2024 0.52 [...] Migdalia Ortiz MD documented in this encounter [facility] 09-17-2024 Note HNO ID: [id number] Author: GRUPO MENDZE MD Service: ? Author Type: Physician Type: [...] office to be evaluated for leukocytosis. ASSESSMENT: (D72.428) Leukocytosis, unspecified type (primary encounter diagnosis) Comment: [...] L REMV CATARACT EXTRACAP,INSERT LENS Bilateral 2020 [facility] FAMILY HISTORY Problem Relation Age of Onset [...] ONCE DAILY metFORMIN (more content not included)... [facility] 09-17-2024 Telephone encounter Note Vm left for patient's son. She has an appointment today in [place]-can Yusuf go to express care there after hematology? [facility] 09-13-2024 Note HNO ID: [id number] Author: MIGDALIA CRAMER MD Service: ? Author [...] panel in 6 months Migdalia Cramer MD [facility] 09-13-2024 History of Present illness Narrative Images [...] Migdalia Cramer MD documented in this encounter [facility] 09-13-2024 Instructions Migdalia Cramer MD - [...] review all the medicines you take, even qitd-gld-cpfczee medicines. As you get older, the way [...] certain medical conditions. documented in this encounter [facility] 09-04-2024 Telephone encounter Note Patient has been scheduled for 09/17 Thank you [facility] 09-04-2024 Miscellaneous Notes Patient has been scheduled for 09/17 Thank you Please contact the patient's wckvnc-hl-kqw Demetria at [phone] to assist with scheduling a consult with hematology/oncology for a high white blood cell count. I sent a MyCZ[employer]it [employer]ured Solutionst message today about test results: Nori Ramos [...] recommend we get a consultation with a visiting housekeeper, a blood specialist. I put an order in for a consultation and will ask a recruiting scheduler to contact you to get it set up. We just want to make sure there is nothing serious going on that we should be more concerned about. Migdalia Cramer MD documented in this encounter [facility] 09-04-2024 Telephone encounter Note Please contact the patient's sucndk-lt-zkk Demetria at [phone] to assist with scheduling a consult with hematology/oncology for a high white blood cell count. I sent a [employer] message today about test results: Nori Ramos [...] recommend we get a consultation with a visiting housekeeper, a blood specialist. I put an order in for a consultation and will ask a recruiting scheduler to contact you to get it set up. We just want to make sure there is nothing serious going on that we should be more concerned about. Migdalia Cramer MD [facility] 08-22-2024 Telephone encounter Note Patients sister in law has been informed. Thank you [facility] 08-22-2024 Miscellaneous Notes Patients sister in [...] of the labs. documented in this encounter [facility] 08-21-2024 Telephone encounter Note Please let her know that Dr. Cramer is currently evaluating the lab results and will reach out to her as soon as he is able. He is currently out of the office. Willie APRN.CNP [facility] 08-21-2024 Telephone encounter Note The following approved medication requests have been transmitted electronically. Requested Prescriptions Signed Prescriptions Disp Refills blood sugar diagnostic (ONETOUCH ULTRA TEST) test strip 100 Strip 3 Sig: Test blood sugar once daily Authorizing Provider: WILLIE KAUR APRN.CNP [facility] 08-21-2024 Miscellaneous Notes The following approved [...] 2024 10:12 AM documented in this encounter [facility] 08-21-2024 Telephone encounter Note Patient has [...] Please review and advise. Jame Hernandez MA [facility] 08-21-2024 Telephone encounter Note Prescription Refill [...] Perla Perez August 21, 2024 10:12 AM [facility] 08-21-2024 Telephone encounter Note Patients sister in law called and wanted to discuss the results of the labs. [facility] 08-14-2024 History of Present illness Narrative [...] COMBINE WITH DICLOFENAC GEL blood sugar diagnostic (Idenix PharmaceuticalsTOUCH ULTRA TEST) test strip Test blood sugar [...] a long period of time Willie Kaur APRN.LICENSED MARRIAGE AND FAMILY THERAPIST I have personally performed a hnjn-em-ofap evaluation on this patient. I have reviewed [...] Migdalia Cramer MD documented in this encounter [facility] 08-14-2024 Note HNO ID: [id number] Author: MIGDALIA CRAMER MD Service: ? Author Type: Physician Type: Progress Notes Filed: 08/14/2024 13:57 Note Text: Yusuf Patrutz is a 88 year old female Patient [...] COMBINE WITH DICLOFENAC GEL blood sugar diagnostic (Idenix PharmaceuticalsTOUCH ULTRA TEST) test strip Test blood sugar [...] swelling or eryt (more content not included)... [facility] 08-13-2024 Note SARS-COV-2 (AGENT OF COVID-19) RNA: Not detected INFLUENZA A RNA: Not detected INFLUENZA B RNA: Not detected RESPIRATORY SYNCYTIAL VIRUS (RSV) RNA: Not detected [facility] Comment on above: Performed By: #### 9 [id number] ####[facility] LABORATORYCLIA [id number] [address] [place] 08-13-2024 Telephone encounter Note Called sister in law who is with the patient, patient is [place]an speaking. ? Blood sugar-patient checks every am, did not do today and is not understanding that sister in law would like her to check it now. She did eat this morning [place] recently Concern based on pill box that she may have taken a days Sister-in -law is in agreement that patient needs to be seen in an emergency room-[place] is close. Reason for Disposition [1] Drinking very little AND [2] dehydration suspected (e.g., no urine > 12 hours, very dry mouth, very lightheaded) Answer Assessment - Initial Assessment Questions 1. DESCRIPTION: "Describe how you are feeling." Patient speaks [place]an, Sister-in -law is there with her. Patient states she is tired and week. Sister-in -law reports that patient is also confused. 2. SEVERITY: "How bad is it?" "Can you stand and walk?" - MILD (0-3): Feels weak or tired, but does not interfere with work, school or normal activities. - MODERATE (4-7): Able to stand and walk; weakness interferes with work, school, or normal activities. - SEVERE (8-10): Unable to stand or walk; unable to do usual activities. Moderate weakness, some difficulty with ambulation which is not her usual 3. ONSET: "When did these symptoms begin?" (e.g., hours, days, weeks, months) Yesterday 4. CAUSE: "What do you think is causing the weakness or fatigue?" (e.g., not drinking enough fluids, medical problem, trouble sleeping) Patient has possibly taken an entire days worth of meds this morning. Also reports trouble sleeping 5. NEW MEDICINES: "Have you started on any new medicines recently?" (e.g., opioid pain medicines, benzodiazepines, muscle relaxants, antidepressants, antihistamines, neuroleptics, beta blockers) No 6. OTHER SYMPTOMS: "Do you have any other symptoms?" (e.g., chest pain, fever, cough, SOB, vomiting, diarrhea, bleeding, other areas of pain) no Protocols used: Weakness (Generalized) and [id number]-PT [facility] 08-13-2024 Miscellaneous Notes Called sister in law who is with the patient, patient is Zimbabwean speaking. ? Blood sugar-patient checks every am, did not do today and is not understanding that sister in law would like her to check it now. She did eat this morning [place] recently Concern based on pill box that she may have taken a days Sister-in -law is in agreement that patient needs to be seen in an emergency room-[place] is close. Reason for Disposition [1] Drinking very little AND [2] dehydration suspected (e.g., no urine > 12 hours, very dry mouth, very lightheaded) Answer Assessment - Initial Assessment Questions 1. DESCRIPTION: "Describe how you are feeling." Patient speaks [place]an, Sister-in -law is there with her. Patient states she is tired and week. Sister-in -law reports that patient is also confused. 2. SEVERITY: "How bad is it?" "Can you stand and walk?" - MILD (0-3): Feels weak or tired, but does not interfere with work, school or normal activities. - MODERATE (4-7): Able to stand and walk; weakness interferes with work, school, or normal activities. - SEVERE (8-10): Unable to stand or walk; unable to do usual activities. Moderate weakness, some difficulty with ambulation which is not her usual 3. ONSET: "When did these symptoms begin?" (e.g., hours, days, weeks, months) Yesterday 4. CAUSE: "What do you think is causing the weakness or fatigue?" (e.g., not drinking enough fluids, medical problem, trouble sleeping) Patient has possibly taken an entire days worth of meds this morning. Also reports trouble sleeping 5. NEW MEDICINES: "Have you started on any new medicines recently?" (e.g., opioid pain medicines, benzodiazepines, muscle relaxants, antidepressants, antihistamines, neuroleptics, beta blockers) No 6. OTHER SYMPTOMS: "Do you have any other symptoms?" (e.g., chest pain, fever, cough, SOB, vomiting, diarrhea, bleeding, other areas of pain) no Protocols used: Weakness (Generalized) and [id number]-UNWDE-FS Patient's caregiver Demetria spoke with the patient [...] seen today. Demetria can be reached at [phone]. documented in this encounter [facility] 08-13-2024 Telephone encounter Note Patient's caregiver [...] seen today. Demetria can be reached at [phone]. [facility] 08-10-2024 Telephone encounter Note The following approved medication requests have been transmitted electronically. Requested Prescriptions Signed Prescriptions Disp Refills glipiZIDE (GLUCOTROL XL) 2.5 mg 24 hr tablet 90 tablet 3 Sig: TAKE 1 TABLET BY MOUTH ONCE DAILY Authorizing Provider: WILLIE KAUR APRN.CNP [facility] 08-10-2024 Miscellaneous Notes The following approved [...] Sandrita Christianson LPN documented in this encounter [facility] 08-10-2024 Telephone encounter Note Patient has [...] Please review and advise. Sandrita Christianson LPN [facility] 07-19-2024 Telephone encounter Note The following [...] BEING SHIPPED Authorizing Provider: WILLIE KAUR APRN.CNP [facility] 07-19-2024 Miscellaneous Notes The following approved [...] WILLIE KAUR APRN.CNP Short term supply to [facility], terminal [place] to [facility] per message below. [...] 2024 9:49 AM documented in this encounter [facility] 07-19-2024 Telephone encounter Note Short term supply to [facility], terminal [facility] to [facility] per message below. [facility] 07-19-2024 Telephone encounter Note Prescription Refill [...] Perla Perez July 19, 2024 9:49 AM [facility] 07-12-2024 Migdalia Moses MD - 07/12/2024 9:56 AM EDT Try drinking 1 Glucerna a day to get some extra calories. I don't want you to continue to lose weight. Take all medications exactly as prescribed. Please have labs done again in late August. Keep appointment scheduled for 09/13/24 for Medicare Annual Wellness Visit. documented in this encounter [facility] 07-12-2024 Note HNO ID: [id number] Author: MIGDALIA CRAMER MD Service: ? Author [...] of keeping this visit Migdalia Cramer MD [facility] 07-12-2024 History of Present illness Narrative SUBJECTIVE: [...] mg daily Hyperlipidemia Pravastatin 20 mg daily \\No CP., palp, inc SOB/STOUT, ankle edema OBJECTIVE: [...] Migdalia Cramer MD documented in this encounter [facility] 05-23-2024 Telephone encounter Note Patient has [...] Please review and advise. Sandrita Christianson LPN [facility] 05-23-2024 Miscellaneous Notes Patient has been [...] 2024 10:28 AM documented in this encounter [facility] 05-23-2024 Telephone encounter Note Prescription Refill [...] sehe only has 2 pills left Perla Preez May 23, 2024 10:28 AM [facility] 04-26-2024 Telephone encounter Note Scheduled for Medicare AWV 09/13/24 Has lab orders The following approved medication requests have been transmitted electronically. Requested Prescriptions Signed Prescriptions Disp Refills pioglitazone (ACTOS) 45 mg tablet 90 tablet 3 Sig: Take 1 tablet by mouth once daily. Authorizing Provider: MIGDALIA CRAMER MD [facility] 04-26-2024 Miscellaneous Notes Scheduled for Medicare [...] Jame Hernandez MA documented in this encounter [facility] 04-26-2024 Telephone encounter Note Patient has [...] Please review and advise. Jame Hernandez MA [facility] 04-16-2024 Telephone encounter Note Spoke with Demetria caldwell and explained that her current Rx is for Glipizide/Glucotrol 2.5 mg once daily - not for Glyburide. Verbalized understanding. No further questions. [facility] 04-16-2024 Miscellaneous Notes Spoke with Demetria caldwell and explained that her current Rx is for Glipizide/Glucotrol 2.5 mg once daily - not for Glyburide. Verbalized understanding. No further questions. Patients sister raymon Augustin called and needs clarification on the patient diabetes medications she stated that she got a call from [employer] stating that she had glyburide ready for pickle sorter but she thought she was supposed to be taking glipizide. Please advise documented in this encounter [facility] 04-16-2024 Telephone encounter Note Patients in law Augustin called and needs clarification on the patient diabetes medications she stated that she got a call from [employer] stating that she had glyburide ready for pickle sorter but she thought she was supposed to be taking glipizide. Please advise [facility] 03-21-2024 History of Present illness [...] its relevant components. documented in this encounter [facility] 03-13-2024 History of Present illness [...] POPULATION HEALTH NAVIGATION OUTREACH Action/FYI Spoke with [id number] Demetria. Patient is on [facility] for the following HM care gaps: Schedule [...] Diabetic Eye Exam HBA1C 03/21/2024 in [facility] with GERTRUDIS BILL - Dilated Retinal Exam 04/12/2024 in [facility] with ADITI CAMARGO - DIMITRIS pseudogout 07/12/2024 in [facility] with MIGDALIA CRAMER - Follow Up, HCC Gap Closure 09/13/2024 in [facility] with MIGDALIA CRAMER - AWV Due HCC related Navigation Signature: Lien Rutledge MA March 13, 2024 2:52 PM documented in this encounter [facility] 02-28-2024 Miscellaneous Notes The following approved medication requests have been transmitted electronically. Requested Prescriptions Signed Prescriptions Disp Refills lansoprazole (PREVACID) 30 mg capsule 90 capsule 3 Sig: Take 1 capsule by mouth once daily. Authorizing Provider: WILLIE KAUR APRN.LICENSED MARRIAGE AND FAMILY THERAPIST Order pended for mail Last OV-04/23/2023 [facility] Next OV-none Kier Drier is calling ,asking for a refill on the following medications . pravastatin (PRAVACHOL) 20 mg tablet 90 tablet 3 10/23/2022 10/23/2023 Sig: Take 1 tablet by mouth once daily. Sent to pharmacy as: pravastatin (PRAVACHOL) 20 mg tablet Class: Normal Route: ORAL Order: [id number] E-Prescribing Status: Receipt confirmed by pharmacy (10/23/2022 9:10 AM EST) She doesn't have many left , they are asking for this fill [facility] . Then if she gets refills send it to the mail in pharmacy . 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 Thanks documented in this encounter [facility] 02-01-2024 Miscellaneous Notes The following approved medication requests have been transmitted electronically. Requested Prescriptions Signed Prescriptions Disp Refills lisinopril-hydroCHLOROthiazide (ZESTORETIC) 20-25 mg per tablet 90 tablet 3 Sig: TAKE 1 TABLET BY MOUTH ONCE DAILY Authorizing Provider: WILLIE KAUR APRN.CNP documented in this encounter [facility] 02-01-2024 Miscellaneous Notes The following approved medication requests have been transmitted electronically. Requested Prescriptions Signed Prescriptions Disp Refills amLODIPine (NORVASC) 5 mg tablet 90 tablet 3 Sig: TAKE 1 TABLET BY MOUTH ONCE DAILY Authorizing Provider: WILLIE KAUR APRN.CNP documented in this encounter [facility] 01-24-2024 Miscellaneous Notes Contacted the caregiver stated the patient pickle sorter the prescription. Request denied no further action needed. 7 day short term Rx sent to [facility] on 01/11/24. 1 year terminal carman Rx sent to [facility] on 01/11/24. Please call to clarify [...] review and advise. Jame Hernandez MA [facility] Willie Kaur APRN.DRAKE Order Providers Prescribing Provider Encounter Provider Willie Kaur APRN.Migdalia Victoria MD Outpatient Medication Detail Disp Refills Start End metFORMIN (GLUCOPHAGE) 850 mg tablet 14 tablet 0 01/11/2024 01/18/2024 Sig: Take 1 tablet by mouth two times a day with meals for 7 days. Sent to pharmacy as: metFORMIN (GLUCOPHAGE) 850 mg tablet Class: Normal Route: ORAL Order: [id number] E-Prescribing Pt states she is completely out and mail order has not come in would like a short supply sent to [facility] documented in this encounter [facility] 01-11-2024 Miscellaneous Notes The following approved [...] for temporary supply to be sent to [facility] while they wait for [facility] for 90 day supply. Please review and advise. Jame Hernandez MA Yusuf Medina called today. Reason : Yusuf conditioner tumbler operator is calling today , she states [...] mg tablet Class: Normal Route: ORAL Order: [id number] E-Prescribing Status: Receipt confirmed by pharmacy (10/14/2023 2:49 PM EST) Please advise and route back so caregiver can be updated . Thanks documented in this encounter [facility] 10-14-2023 Miscellaneous Notes The following approved [...] also needs an emergency script sent to [facility] [address] [place]. Patient has been identified by name and date of : Yes Requested Prescriptions Pending Prescriptions Disp Refills metFORMIN (GLUCOPHAGE) 850 mg tablet 180 tablet 3 Sig: Take 1 tablet by mouth two times a day with meals. RX INSTRUCTIONS: Patient aware RX escripted to mail away pharmacy. No need to notify patient. Dinora Perez documented in this encounter [facility] 09-06-2023 Miscellaneous Notes The following approved [...] Jame Hernandez MA documented in this encounter [facility] 08-31-2023 Miscellaneous Notes Called the number on the chart and confirmed with conditioner tumbler operator that the medication has been sent [...] that 1 year supply was sent to [facility] pharmacy on 06/02/23. Demetria states that's the problem, all her medications need to go through mail order as her insurance will not cover medications sent to [facility]. Informed her that will send high priority to provider to send short term supply of medication to pharmacy today so it can be picked up and terminal carman supply to be sent through mail order. Demetria agreeable and verbalized understanding. Please advise Thank you! Please call to review with Demetria the pharmacy issue for patient's Glipizide. She is asking for a call today as the patient has 1 left. documented in this encounter [facility] 06-23-2023 Miscellaneous Notes The following approved [...] Laura Hay Pss documented in this encounter [facility] 06-03-2023 Miscellaneous Notes Called and left VM. Morro Tomas, Patient Gaming Director 1st attempt Lvm , will try again at a later time Thanks Please let patient know that Rx has been refilled. The following approved medication requests have been transmitted electronically. Requested Prescriptions Signed Prescriptions Disp Refills glipiZIDE (GLUCOTROL XL) 2.5 mg 24 hr tablet 90 tablet 3 Sig: Take 1 tablet by mouth once daily. Authorizing Provider: WILLIE KAUR APRN.LICENSED MARRIAGE AND FAMILY THERAPIST Patient has been identified by name and [...] would like the medication sent to the [facility] Pharmacy [facility] [place] [id number] Leanne Ding documented in this encounter [facility] 05-12-2023 Miscellaneous Notes 7.6 (03/08/2023) documented in this encounter [facility] 04-28-2023 History of Present illness Narrative [...] Care Gap or Scheduling/Wellness visits Payer: Payor: [facility] MEDIC[facility] / Plan: [facility] MEDICARE ADVANTAGE PPO / Product Type: PPO [...] DEPRESSION ASSESSMENT Never done Navigation Signature: Margie Perez April 28, 2023 12:52 PM documented in this encounter [facility] 04-20-2023 Miscellaneous Notes Contacted patient's caregiver [...] glucometer as needed Authorizing Provider: WILLIE KAUR APRN.LICENSED MARRIAGE AND FAMILY THERAPIST Contacted patient's caregiver Demetria who states patient's blood sugar monitor is 10 or more years old and patient's blood sugar read 25, then it read in the 200's when re-checked it right after. Demetria wondering if patient's blood glucose monitor working correctly & if she needs a new one? Please advise Thank you Patient's conditioner tumbler operator Demetria calling with a question for a nurse regarding the patient's blood glucose monitor. Please call. TY documented in this encounter [facility] 04-20-2023 Miscellaneous Notes Caregiver made aware [...] if ok. TY documented in this encounter [facility] 04-13-2023 Instructions Willie Kaur APRN.CNP - [...] dropping too low documented in this encounter [facility] 04-13-2023 History of Present illness Narrative [...] diabetes. Demetria must come to act as paraprofessional interpreter, they decline paraprofessional interpreter. Patients last HgbA1C was Hemoglobin A1C (%) Date Value 03/08/2023 7.6 10/21/2022 7.5 04/27/2022 7.1 10/12/2021 7.4 09/10/2020 6.7 01/24/2020 6.8 ). Last BP 04/13/23 : 125/63 03/29/23 : 150/71 03/17/23 : 146/67 CKD3 Creatinine Date Value Ref Range Status 03/09/2023 0.92 0.58 - 0.96 mg/dL Final Demetria as paraprofessional interpreter Declines [facility] paraprofessional interpreter Current Outpatient Medications on File Prior to Visit Medication Sig metFORMIN (GLUCOPHAGE) 1,000 mg tablet Take 1 tablet by mouth twice daily with meals. blood sugar diagnostic (Performable ULTRA TEST) test strip Test blood sugar [...] diabetes. Demetria must come to act as paraprofessional interpreter, they decline paraprofessional interpreter. - GLIPIZIDE ER 2.5 MG TABLET, EXTENDED RELEASE 24 HR 2. CKD stage 3 due to type 2 diabetes mellitus (HCC) - ICD9: 250.40, 585.3, ICD10: E11.22, N18.30 - Stable Willie Kaur APRN.DRAKE documented in this encounter [facility] 03-29-2023 Instructions Willie Kaur APRN.DRAKE - 03/29/2023 3:50 PM EDT Check blood sugar once per day Tuesday - check in morning Tuesday - check in evening Tuesday - check in morning Tuesday - check in evening - check in morning Tuesday - check in evening Tuesday - check in morning documented in this encounter [facility] 03-29-2023 History of Present illness Narrative SUBJECTIVE: Yusuf Medina is a 87 year old female who presents for 2 week evaluation and treatment of DM Sister in law Augustin acts as paraprofessional interpreter, declines phone paraprofessional interpreter 03/17/23 Family Medicine office visit Sister in [...] ONCE DAILY blood sugar diagnostic (ONETOUCH ULTRA TEST) test [...] months - METFORMIN 1,000 MG TABLET - ONETOUCH ULTRA TEST STRIPS - BASIC METABOLIC PNL 2. Essential hypertension - ICD9: 401.9, ICD10: I10 - Fair control 3. CKD stage 3 due to type 2 diabetes mellitus (HCC) - ICD9: 250.40, 585.3, ICD10: E11.22, N18.30 - Check kidney function one month after increased dose Metformin. Keep close eye on kidney function - BASIC METABOLIC PNL Willie Kaur APRN.LICENSED MARRIAGE AND FAMILY THERAPIST documented in this encounter [facility] 03-24-2023 Miscellaneous Notes Called caregiver and [...] like office to call her back at [phone] as soon as possible. Patient has been identified by name and birthdate. Duration of symptoms: N/A Person calling: caregiver: Demetria Call patient at: at home [phone] (home) [phone] (cell) Was an appointment scheduled: No Closing statement: Results or non-symptom based questions: Thank you for calling [facility], your call will be returned within the next business day. Laura Hay Pss documented in this encounter [facility] 03-22-2023 Miscellaneous Notes Spoke with patient's caregiver, Demetria. Documented in nurse triage encounter from 03/18/23. Patient caregiver called back.She would like a call back at [phone] Thanks Left message to call the office back, may speak with any available triage nurse. Gabbie Melchor RN Demetria is calling on behalf of Yusuf. She has blood sugars readings to give and would like to speak to a nurse with the readings and any changed to meds. Please call her at [phone] documented in this encounter [facility] 03-17-2023 History of Present illness Narrative [...] Lymph 1.00 - 4.00 k/uL 0.71 (L) [place]% % 5.7 Abs [place] <0.87 k/uL 0.99 (H) [place]% % 0.7 [...] no acute distress, and well-hydrated, well nourished, "motor and sensory appear to be normal Lungs: [...] Demetria prefers to not drive to [facility] so she will try to reschedule this. - CONSULT TO GLOBAL CEO 3. Leukocytosis, unspecified type - ICD9: 288.60, ICD10: D72.829 - Resolved 4. Type 2 diabetes mellitus with stage 3 chronic kidney disease, without long-term current use of insulin ([facility]) - ICD9: 250.40, 585.3, ICD10: E11.22, N18.30 - A1C 7.6 on 03/08/23 - Demetria indicates that Yusuf recently reported intermittent dizzy spells that have been apparently occurring for months. Has never checked her sugars during these episodes. Glipizide stopped at discharge 4/27/23 due to the reports of dizzy spells [...] 2023 2:20 PM documented in this encounter [facility] 03-10-2023 History of Present illness Narrative Noted Willie Kaur APRN.CNP TCM Home Visit Referral Source of Stratification: [facility] Admission Status: Discharged Readmission Risk [...] Rheum, 04/23 PCP Spoke with pt's doug Espinosa Zeldasavanah, validated in chart, his number is listed as pt's Reports: pt has some improvement in pain He is not currently with her Advised to call PCP wit new/worsening symptoms Confirmed PCP appt tomorrow Lien Hankins RN SUMMARY: Discharge Network Status: In-Network Discharge Pt discharged from [facility] on 03/09/23. Admitted for: Arthalgia Contact made with patient: Yes Hi my name is Lien Hankins RN and I am calling from the [facility] on behalf of your PCP, Migdalia [...] like to speak with a social work senior engineering team leader to help give you support for any [...] I will send your request to a recruiting scheduler who will contact and assist you [...] Ordered -: No documented in this encounter [facility] 03-07-2023 History of Past i llness [...] of this encounter (statuses as of 03/10/2023) [facility] History of Past illness Narrative* Problem [...] of this encounter (statuses as of 03/19/2023) [facility] History of Past illness Narrative* Problem [...] for 09/05/15 at 08:40am C25). -Greatly appreciate Sreenity's recs from Chronic Pain service -Patient's niece and MARK Sancehz called Dr. Martines on 08/26/2015 to get [...] of this encounter (statuses as of 03/23/2023) [facility] History of Past illness Narrative* Problem [...] of this encounter (statuses as of 03/24/2023) [facility] of Past illness Narrative* Problem [...] of this encounter (statuses as of 03/30/2023) [facility] of [facility] illness Narrative* Problem [...] of this encounter (statuses as of 04/14/2023) [facility] Narrative* Problem [...] of this encounter (statuses as of 04/20/2023) [facility] Past [facility] Narrative* Problem [...] of this encounter (statuses as of 04/20/2023) [facility] Narrative* Problem [...] of this encounter (statuses as of 04/28/2023) [facility] Narrative* Problem [...] of this encounter (statuses as of 05/16/2023) [facility] Narrative* Problem [...] of this encounter (statuses as of 06/15/2023) [facility] Narrative* Problem [...] of this encounter (statuses as of 06/23/2023) [facility] Narrative* Problem [...] of this encounter (statuses as of 08/31/2023) [facility] Narrative* Problem [...] of this encounter (statuses as of 09/06/2023) [facility] Narrative* Problem [...] of this encounter (statuses as of 10/14/2023) [facility] Narrative* Problem [...] of this encounter (statuses as of 01/12/2024) [facility] Narrative* Problem [...] of this encounter (statuses as of 01/24/2024) [facility] Narrative* Problem [...] of this encounter (statuses as of 02/01/2024) [facility] Narrative* Problem [...] of this encounter (statuses as of 02/01/2024) [facility] Narrative* Problem [...] morphine pump implantation while inpatient, but Dr. Martiens prefers to allow Anesthesia Pain service to [...] of this encounter (statuses as of 02/29/2024) [facility]04-11-2023 Miscellaneous Notes* Telephone Encounter - Ok [...] advise. Jame Hernandez MA [facility] Miscellaneous Notes* Telephone Encounter - Willie [...] Allergies: Patient has no known allergies. (home) [phone] (cell) Reason for call: patient needs a refill on the following medications Disp Refills Start End blood sugar diagnostic (ONETOUCH ULTRA BLUE TEST STRIP) test strip 300 Strip 3 2019 Sig: USE DIRECTED TO TEST BLOOD SUGARS 3 TIMES A DAY Sent to pharmacy as: blood sugar diagnostic (ONETOUCH ULTRA BLUE TEST STRIP) test strip Class: Normal Order: [id number] E-Prescribing Status: Receipt confirmed by pharmacy (2019 10:20 AM EST) Please advise and make patient aware Thanks [facility] Miscellaneous Notes* Telephone Encounter - Willie [...] advise. Sandrita Christianson LPN [facility] History of Present illness Narrative* Migdalia [...] follow-up. Migdalia Cramer MD [facility] Miscellaneous Notes* Telephone Encounter - Willie [...] advise. Sandrita Christianson LPN [facility] Miscellaneous Notes* Telephone Encounter - Willie [...] advise. Sandrita Christianson LPN [facility] Miscellaneous Notes* Telephone Encounter - Agustina [...] KAUR APRN.CNP * Telephone Encounter - Jodi Smith Pss - 08/17/2022 4:52 PM EDT Patient has [...] she only wants 14 days to local [facility] - I made a copy and corrected the amount. Then I entered her request for the mail order going to [facility]. Each is assigned to the correct Pharmacy . Patient aware RX will be sent to pharmacy. Please call Demetria once sent at [phone]. Jodi Smith [facility] Miscellaneous Notes* Telephone Encounter - Willie [...] Per 04/08/22 telephone encounter: Dr. Cramer notes states" IFOBT, CBC, Retic count at end of March Recheck Urine too to ensure UTI resolved Cont iron supplement Asked them to consider diagnostic colonoscopy for anemia" There is an order for fecal occult blood that was placed on 03/29/22. That is the "IFOBT" he was referencing in his note. They should be able to pickle sorter a kit form [facility] lab. He also asked them to consider a diagnostic colonoscopy, which is not Cologuard. Willie Kaur APRN.CNP * Telephone Encounter - Sandrita Christianson LPN - 06/10/2022 9:56 AM EDT Fax received from [facility] that pt has not completed Cologuard that was ordered on 04/08/22. Fax scanned into pt's chart (according to chart, pt had diag occult blood exam on 04/27/22) Please advise Thank you [facility] Miscellaneous Notes* Telephone Encounter - Willie [...] she does not have any glipizide left? Kier Drier then proceeded to ask questions regarding pioglitazone-"is she supposed to be taking this? She just received this in the mail." informed her per pt's medication list, yes she should be taking that medication once daily. She stated her went to pt's house yesterday & found that pt is out of glipizide & she does not have any. I asked who sets pt's medications up, demetria stated, "They set medications up for pt." According to chart Glipizide Rx was sent to [facility] on 10/09/21, 90 tabs with 3 refills. I told Demetria to call [facility] to ensure they have an active prescription on file for pt, & if not to call our office back so we can send new prescription. Please send Short term supply of Glipizide to [facility] pharmacy- [address] (pended for provider). * Telephone Encounter - Sandrita Christianson LPN - 05/28/2022 9:24 AM EDT PSS received call from pt's conditioner tumbler operator Demetria. Pt informed Demetria that she [...] will call our office. [facility] History of Present illness Narrative* Migdalia [...] daily meds yet today Pt discharged from [facility] on 03/29/22. Admitted for: Pain in arms and legs with elevated white count and urinary tract infection Admitted to [facility] 03/23-03/26 and 03/26-03/29 (pain worsened and [...] Demetria Migdalia Cramer MD documented in this [facility]Kn[facility]06[facility] History of Present illness Narrative* Katia Farooq RN - 04/27/2022 3:27 PM EDT TRANSITION CARE MANAGEMENT (TCM) FOLLOW-UP NOTE Provider Action/FYI Spoke with caregiver Demetria -validated that she is involved in patient's care. No issues or concerns at this time. Pain is improved. Having BM's per caregiver. Declines consult to CDM. Patient identified by name and date of : YES Spoke with caregiver Demetria -validated that she is involved in patient's care. Summary: Pt discharged from [facility] on 03/29/22. Admitted for: Pain in arms and legs with elevated white count and urinary tract infection Concerns: No concerns at this time. Core Measures Abstractor plan for next outreach: No further follow up needed at this time. TCM outreach complete. Signature Katia Farooq RN April 27, 2022 [facility]* Diagnosis Hypertensive kidney disease with stage 3 chronic kidney disease, unspecified whether stage 3a or 3b CKD (HCC)- Primary [facility] in this encounter [facility] Miscellaneous Notes* Telephone Encounter - Cheryl [...] 4:28 PM EDT Call placed to pt's conditioner tumbler operator, Demetria. Informed her of the 2 blood work orders to have completed, & that pt can give urine sample at [facility] when she goes for lab draw. Demetria also confirmed that they Did pickle sorter IFOBT but pt Having trouble going to [...] Tamayo PA-C * Telephone Encounter - [facility] [place] 04/26/2022 9:37 AM EDT Patient caregiver Demetria calling to ask about the lab order in patient chart regarding the follow up urine. She states patient received a bottle for her to hand carry her urine, is that correct? Or is it to be done when she [facility]? And [facility] Demetria states when patient came in for labs she was told there were no orders and she does not want that to happen again. Call caregiver Demetria to discuss at [phone] documented in [facility]Kn[facility]05[facility]22 Miscellaneous Notes* Telephone Encounter - Sandrita Christianson LPN - 04/08/2022 1:25 PM EDT Pt's POA/conditioner tumbler operator Demetria notified & had no questions/concerns. * Telephone Encounter - Willie Kaur APRN.CNP - 04/08/2022 11:47 AM EDT Please notify patient that Cologuard has been ordered and [employer]olog[employer] will reach out [facility] mailing address. Willie Kaur APRN.CNP * Telephone Encounter - Yeimy Dubon - 04/08/2022 10:37 AM EDT Patient's conditioner tumbler operator, Demetria is calling requesting the Cologuard kit. She is asking for the kit or prescription for the kit. Please return call at [phone] documented in this encounterKn[facility]05-[facility]22 Instructions* Patient Instructions* Migdalia Cramer MD [...] of March. Consider colonoscopy. documented in this encounterKn[facility]05-[facility]22 History of Present illness Narrative* Migdalia [...] review completed Yes SUMMARY: Pt discharged from [facility] on 03/29/22. Admitted for: Pain in arms and legs with elevated white count and urinary tract infection Admitted to [facility] 03/23-03/26 and 03/26-03/29 (pain worsened and she returned to ED 5 hrs after D/C) R arm pain Unable to do ADLs independently E Coli UTI Yusuf Medina is a 86 year old female Patient presents with: Follow Up: E.DErika 03/23/22, 03/26/22 Accompanied today by her brother [...] BY MOUTH ONCE DAILY blood sugar diagnostic ([employer] Technologies[employer]CH ULTRA BLUE TEST STRIP) test strip [...] of the right femoral acetabular joint with efju-fq-osdh contact, subchondral sclerosis and marginal osteophytosis. Left [...] 04/03/2022 8:06 AM EDT documented in this encounterKn[facility]05-17-2022 Miscellaneous Notes* Telephone Encounter - Willie Kaur APRN.CNP - 03/30/2022 4:50 PM EDT Noted and agree with OV 04/03/22 Willie Kaur APRN.DRAKE * Telephone Encounter - Sandrita Christianson [...] up Willie Kaur APRN.CNP documented in this encounterKn[facility]05-17-2022 Miscellaneous Notes* Telephone Encounter - Willie Kaur APRN.CNP - 03/30/2022 10:53 AM EDT Noted and agree with OV Willie Kaur APRN.CNP * Telephone Encounter - Magnolia Johnson RN - 03/30/2022 10:17 AM EDT Spoke with patients career placement specialist Demetria. She had questions for the doctor [...] pain (volearen gel and lidocaine patches) and career placement specialist is not sure how long she should be using those (advised for now to continue until follow up appointment) Offered several appointments this week but her career placement specialist Demetria is having trouble getting her to [...] Assessment Questions Recently in the hospital. Pt career placement specialist wanted a follow up to discuss med changes and how to help with her pain more terminal carman. Protocols used: INFORMATION ONLY CALL - NO [id number] * Telephone Encounter - ZANA Buck - 03/30/2022 9:16 AM EDT This morning Yusuf caregiver called with some concerns . She has had the patient in the ER two times in the last few days. She is experiencing all over painand would like more suggestions on how to help the patient . Please Advise Thanks documented in this encounterKn[facility] Hospital05-14-2022 History of Past illness Narrative* Problem [...] of this encounter (statuses as of 03/30/2022) [facility] of Past illness Narrative* Problem [...] of this encounter (statuses as of 03/30/2022) [facility] of Past illness Narrative* Problem [...] of this encounter (statuses as of 04/03/2022) [facility] of [facility] illness Narrative* Problem [...] of this encounter (statuses as of 04/08/2022) [facility] Narrative* Problem [...] of this encounter (statuses as of 04/26/2022) [facility] Narrative* Problem [...] of this encounter (statuses as of 04/27/2022) [facility] of [facility] illness Narrative* Problem [...] of this encounter (statuses as of 05/08/2022) [facility] of Past illness Narrative* Problem [...] myelopathy 10/3109/15/2011 Diabetes Mellitus Type II, Uncontrolled; 2000 12/01/2016 Vertigo of central origin 01/08/20102010 Peripheral vertigo, [...] of this encounter (statuses as of 05/28/2022) [facility] History of Past illness Narrative* Problem [...] from Chronic Pain service -Patient's niece and MALLORYA Laura called Dr. Martines on 08/26/2015 to [...] of this encounter (statuses as of 06/11/2022) [facility] of Past illness Narrative* Problem [...] of this encounter (statuses as of 08/18/2022) [facility] illness Narrative* Problem [...] of this encounter (statuses as of 09/30/2022) [facility] illness Narrative* Problem [...] of this encounter (statuses as of 10/04/2022) [facility] illness Narrative* Problem [...] of this encounter (statuses as of 11/15/2022) [facility] Narrative* Problem [...] of this encounter (statuses as of 12/28/2022) [facility] Narrative* Problem [...] of this encounter (statuses as of 01/20/2023) [facility] Past illness Narrative* Problem [...] of this encounter (statuses as of 02/22/2023) [facility] Miscellaneous Notes* Telephone Encounter - Willie Kaur APRN.CNP - 03/25/2022 11:55 AM EDT The following approved medication requests have been transmitted electronically. Signed Prescriptions Disp Refills glipiZIDE (GLUCOTROL XL) 2.5 mg 24 hr tablet 30 tablet 1 Sig: Take 1 tablet by mouth once daily. 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 Brother is calling to have a local pharmacy handle the discrepancy. * Telephone Encounter - Aditi Perez - 03/23/2022 10:18 AM EDT Pharmacy verified in [facility] Patient has been identified by name [...] advise. Aditi Novoa Pss documented in this encounterKn[facility] Hospital05-09-2022 Miscellaneous Notes* Telephone Encounter - Willie [...] and advise. Sangita Herring documented in this encounterKnox [facility] Hospital04-15-2022 Miscellaneous Notes* Telephone Encounter - Agustina [...] KAUR APRN.CNP * Telephone Encounter - Tyesha Lipscomb Pss - 02/25/2022 3:33 PM EDT Patient's caregiver, Mercedes, stated she tried to refill patient's meloxicam, but [facility] told her itwas discontinued. Epic shows as discontinued. Please review and advise at [phone]. documented in this encounterKnox Community Hospital02-22-2022 Miscellaneous Notes* Telephone Encounter - Lucinda [...] a 30 day supply sent to the [facility] of the glipizide RX INSTRUCTIONS: Patient requesting a call when RX is approved and sent to the pharmacy. 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 Attempted to reach via telephone, however no answer. Voicemail left for return call. [facility]01-21-2022 [facility] CONSULTATION YUSUF MEDINA [facility] E200 [phone] ICU NIGHAT PENNY MD [id number] REFERRING PHYSICIAN: CONSULTING PHYSICIAN: Gertrudis Beckford DO DATE OF CONSULTATION: 12/04/2021 CHIEF COMPLAINT: Status post fall. HISTORY OF PRESENT ILLNESS: This 85-year-old [place] woman was taking care of her 16 [...] 2 diabetes. 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 She had fallen. It is unknown [...] Last Charted Temp Rectal L 35.5degC (DEC 04:) Heart Rate Peripheral H 106bpm (DEC 04:30) Resp Rate 18 br/min (DEC 04) SBP [...] levels of other ser (more content not included)...[facility]01-20-2022 NotePatient: YUSUF MEDINA Age: 85 years Sex: [...] Neurological no speech. Procedure FAST: done by nj- no intraperitoneal fluid seen Impression and Plan found down, unknown mechanism, hypothermia Plan: warm, CT eval [facility]08-31-2021 History of Present illness Narrative* Giovanny [...] 14, 2021 9:01 AM documented in this encounterKn[facility] Hospital07-12-2017 History of Past illness Narrative* Problem [...] of this encounter (statuses as of 02/18/2022) [facility] of [facility] illness Narrative* Problem [...] of this encounter (statuses as of 02/26/2022) [facility] of [facility] Narrative* Problem [...] of this encounter (statuses as of 03/22/2022) [facility] of [facility] illness Narrative* Problem [...] of this encounter (statuses as of 03/25/2022) [facility]* Diagnosis Type 2 diabetes mellitus with stage 3 chronic kidney disease, without long-term current use of insulin (HCC) DDD (degenerative disc disease), cervical Degeneration of cervical intervertebral disc documented [facility] encounter [facility]* Diagnosis DDD (degenerative disc disease), cervical Degeneration of cervical intervertebral disc [facility]* Diagnosis Essential hypertension Unspecified essential hypertension documented [facility] this encounter [facility]* Diagnosis Acute cystitis without hematuria- Primary [...] not elsewhere classified [facility] Diagnosis Screening for colon cancer- Primary Special screening for malignant neoplasms, colon [facility]* Diagnosis Iron deficiency anemia, unspecified iron deficiency anemia type- Primary [facility]* Diagnosis Iron deficiency anemia, unspecified iron deficiency anemia type- Primary Acute cystitis with hematuria Acute cystitis Diabetes mellitus, non-insulin dependent (NIDDM or type II) (HCC) CKD stage 3 due to type 2 diabetes mellitus (HCC) Essential hypertension Unspecified essential hypertension Hyperlipidemia associated with type 2 diabetes mellitus (HCC) Hypertensive kidney disease with stage 3b chronic kidney disease (HCC) [facility]* Diagnosis Gastroesophageal reflux disease without esophagitis Esophageal reflux [facility]* Diagnosis Type 2 diabetes mellitus with stage 3 chronic kidney disease, without long-term current use of insulin (HCC) [facility]* Diagnosis Diabetes mellitus, non-insulin dependent (NIDDM [...] diabetes mellitus (HCC) [facility]* Diagnosis Diabetes mellitus, non-insulin dependent (NIDDM or type II) (HCC)- Primary [facility]* Diagnosis Essential hypertension Unspecified essential hypertension [facility]* Diagnosis Pain in both hands- Primary Pain in both wrists Pain in joint, forearm Leukocytosis, unspecified type Type 2 diabetes mellitus with stage 3 chronic kidney disease, without long-term current use of insulin, unspecified whether stage 3a or 3b CKD (HCC) Muscular deconditioning Muscular wasting and disuse atrophy, not elsewhere classified [facility]* Diagnosis Diabetes mellitus, non-insulin dependent (NIDDM or type II) (HCC)- Primary Essential hypertension Unspecified essential hypertension CKD stage 3 due to type 2 diabetes mellitus (HCC) [facility]* Diagnosis Diabetes mellitus, non-insulin dependent (NIDDM or type II) (HCC)- Primary CKD stage 3 due to type 2 diabetes mellitus (HCC) documented [facility] encounter [facility]* Diagnosis Diabetes mellitus, non-insulin dependent (NIDDM or type II) (HCC) [facility]* Diagnosis Diabetes mellitus, non-insulin dependent (NIDDM or type II) (HCC) documented [facility]* Diagnosis Gastroesophageal reflux disease without esophagitis Esophageal reflux documented [facility]* Diagnosis Diabetes mellitus, non-insulin dependent (NIDDM or type II) (HCC)- Primary documented [facility]* Diagnosis Diabetes mellitus, non-insulin dependent (NIDDM or type II) (HCC) documented [facility] this encounter [facility]* Diagnosis Essential hypertension Unspecified essential hypertension [facility]* Diagnosis Essential hypertension Unspecified essential hypertension documented [facility]* Diagnosis Gastroesophageal reflux disease without esophagitis Esophageal reflux documented [facility] this [facility]* Diagnosis Diabetes mellitus, non-insulin dependent (NIDDM or type II) (HCC)- Primary Hyperlipidemia associated with type 2 diabetes mellitus (HCC) (HCC) Essential hypertension Unspecified essential hypertension [facility]* Diagnosis Type 2 diabetes mellitus without retinopathy (HCC)- Primary Type II or unspecified type diabetes mellitus without mention of complication, not stated as uncontrolled Pseudophakia Lens replaced by other means [facility]* Diagnosis Type 2 diabetes mellitus with stage 3 chronic kidney disease, without long-term current use of insulin (HCC) [facility]* Diagnosis Diabetes mellitus, non-insulin dependent (NIDDM or type II) (HCC) [facility] Diagnosis Essential hypertension- Primary Unspecified essential [...] deficiency anemia type [facility]* Diagnosis Essential hypertension Unspecified essential hypertension [facility]* Diagnosis Generalized weakness- Primary Other malaise and fatigue Headache, unspecified headache type Leukocytosis, unspecified type CKD stage 3 due to type 2 diabetes mellitus (HCC) Normocytic anemia Anemia, unspecified Essential hypertension Unspecified essential hypertension Insomnia Insomnia, unspecified Arthralgia, unspecified joint [facility]* Diagnosis Pain Generalized pain documented [facility]* Diagnosis Leukocytosis, unspecified type- Primary documented [facility] encounter [facility]* Diagnosis Right ankle swelling Effusion of ankle and foot joint [facility]* Diagnosis Right ankle swelling- Primary Effusion of ankle and foot joint Closed nondisplaced fracture of right calcaneus, unspecified portion of calcaneus, initial encounter documented [facility] encounter [facility]* Diagnosis Right ankle swelling Effusion of ankle and foot joint [facility]* Diagnosis Pain in joint involving right ankle and foot [facility]* Diagnosis Right ankle swelling Effusion of ankle and foot joint Closed nondisplaced fracture of right calcaneus, unspecified portion of calcaneus, initial encounter [facility]* Diagnosis Leukocytosis, unspecified type- Primary Normocytic anemia Anemia, unspecified Right ankle swelling Effusion of ankle and foot joint Right ankle swelling Effusion of ankle and foot joint Right ankle swelling Effusion of ankle and foot joint [facility]* Diagnosis Medicare annual wellness visit, subsequent- [...] Leukocytosis, unspecified type documented [facility]* Diagnosis Right ankle swelling- Primary Effusion of ankle and foot joint Chronic pain of right ankle documented [facility]* Diagnosis Right ankle swelling Effusion of ankle and foot joint [facility]* Diagnosis Chronic pain of right ankle- Primary documented [facility]* Diagnosis Normocytic anemia- Primary Anemia, unspecified Leukocytosis, unspecified type documented [facility] encounter [facility]* Diagnosis Chronic pain of right ankle documented [facility]* Diagnosis Essential hypertension Unspecified essential hypertension [facility]* Diagnosis 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)- Primary Ulcer of ankle [facility]* Diagnosis Pseudogout- Primary Other disorder of calcium metabolism Ankle swelling, right Medication monitoring encounter Encounter for therapeutic drug monitoring documented [facility]* Diagnosis Non-pressure chronic ulcer of right [...] kidney disease (HCC) documented [facility]* Diagnosis Pressure injury of right ankle, stage 3 (HCC)- Primary documented [facility]* Diagnosis Hyperlipidemia with target LDL less than 100 Other and unspecified hyperlipidemia documented [facility]* Diagnosis Leukocytosis, unspecified type- Primary Normocytic anemia Anemia, unspecified Vitamin B6 deficiency Cellulitis of right ankle documented in this encounter [facility] noteNo assessment information availableWBerger Hospital Work Phone: Evaluation note* Diagnosis 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)- Primary Ulcer of ankle documented in this encounter [facility] for referral (narrative)* Diagnostic Procedure Only (Routine) - Closed Specialty Diagnoses / Procedures Referred By Contac t Referred To Contact XR IMAGING Diagnoses Pain Procedures XR SHOULDER GENERAL 3V OR MORE AP/TRUE AP/OTHER LT X-RAY SHOULDER COMPLET [place] [address] [place] [address] [place] [address] [place] [address] Referral ID Status Reason Start Date Expiration Date V isits Requested Visits Authorized [id number] Closed Auto-Generate d Referral 07/09/2021 08/08/2022 1 1 [facility] for referral (narrative)* Diagnostic Procedure Only (Routine) - Closed Specialty Diagnoses / Procedures Referred By Contac t Referred To Contact XR IMAGING Diagnoses Right ankle swelling Procedures XR ANKLE GENERAL 3V AP/LAT/OBL RIGHT RADEX ANKLE COMPLETE MINIMUM 3 [place] [address] [place] [address] [place] [address] Referral ID Status Reason Start Date Expiration Date V isits Requested Visits Authorized [id number] Closed Auto-Generate d Referral 09/17/2024 10/17/2025 1 1 [facility] for referral (narrative)* Diagnostic Procedure Only (Urgent) - Closed Specialty Diagnoses / Procedures Referred By Contac t Referred To Contact US IMAGING Diagnoses Right ankle swelling Procedures US DVT LOWER RIGHT DUP-SCAN XTR VEINS UNILATERAL/[place] [address] [place] [address] [place] [address] Referral ID Status Reason Start Date Expiration Date V isits Requested Visits Authorized [id number] Closed Auto-Generate d Referral 09/18/2024 10/17/2025 1 1 [facility] for referral (narrative)* Diagnostic Procedure Only (Routine) - Closed Specialty Diagnoses / Procedures Referred By Contac t Referred To Contact XR IMAGING Diagnoses Right ankle swelling Procedures XR ANKLE GENERAL 3V AP/LAT/OBL RIGHT RADEX ANKLE COMPLETE MINIMUM 3 [place] [address] [place] [id number] [place] [address] Referral ID Status Reason Start Date Expiration Date V isits Requested Visits Authorized [id number] Closed Auto-Generate d Referral 09/17/2024 10/17/2025 1 1 * Diagnostic Procedure Only (Urgent) - Closed Specialty Diagnoses / Procedures Referred By Alisa t Referred To Contact US IMAGING Diagnoses Right ankle swelling Procedures US DVT LOWER RIGHT DUP-SCAN XTR VEINS UNILATERAL/[place] [address] [place] [address] Us [place] [address] Referral ID Status Reason Start Date Expiration Date V isits Requested Visits Authorized [id number] Closed Auto-Generate d Referral 09/18/2024 10/17/2025 1 1 [facility] for referral (narrative)No reason for referral [facility]: Reason for visit Narrative* Diagnostic Procedure Only (Routine) - Closed Specialty Diagnoses / Procedures Referred By Contac t Referred To Contact XR IMAGING Diagnoses Pain in joint involving right ankle and foot Procedures XR CALCANEUS 2V AXIAL/LAT RIGHT RADEX CALCANEUS MINIMUM 2 VIEWS Simone Kevin MD [address] [phone] [place] [address] Referral ID Status Reason Start Date Expiration Date V isits Requested Visits Authorized [id number] Closed Auto-Generate d Referral 09/19/2024 10/19/2025 1 1 [facility] Summary Purpose Family History No Family History Records FoundNo Family History Records FoundNo Family History Records FoundNo Family History Records Found Advance Directives No Advanced Directives Records FoundDocuments on File Type Date Recorded 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 Advance Directive(s) 2024 10:00 AM [...] Documents on File Type Date Recorded 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 Advance Directive(s) 08/28/2015 9:03 PM Date Activated Date Inactivated Comments 03/07/2023 4:44 AM 03/09/2023 7:53 PM Date Activated Date Inactivated Comments 03/24/2022 3:23 PM 03/26/2022 7:51 PM Latest Code Status on File Code Status Date Activated Date Inactivated Comments Full Code 03/24/2022 3:23 PM 03/26/2022 7:51 PM Full Code Order Discussed With: Patient Documents on File Type Date Recorded 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 Advance Directive(s) Advance Directive(s) 05/19/2020 10:04 PM Advance Directive(s) 03/11/2017 1:34 PM Advance Directive(s) 12/10/2016 5:24 PM Advance Directive(s) 04/17/2016 11:22 AM Advance Directive(s) 08/28/2015 9:03 PM Documents on File Type Date Recorded 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 Advance Directive(s) Advance Directive(s) 03/23/2022 11:09 PM Advance Directive(s) 05/19/2020 10:04 PM Advance Directive(s) 03/11/2017 1:34 PM Advance Directive(s) 12/10/2016 5:24 PM Advance Directive(s) 04/17/2016 11:22 AM Advance Directive(s) 08/28/2015 9:03 PM Latest Code Status on File Code Status Date Activated Date Inactivated Comments Full Code 03/24/2022 3:23 PM Documents on File Type Date Recorded 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 Advance Directive(s) Advance Directive(s) 03/27/2022 12:20 AM Advance Directive(s) 03/23/2022 11:09 PM Advance Directive(s) 05/19/2020 10:04 PM Advance Directive(s) 03/11/2017 1:34 PM Advance Directive(s) 12/10/2016 5:24 PM Advance Directive(s) 04/17/2016 11:22 AM Advance Directive(s) 08/28/2015 9:03 PM Documents on File Type Date Recorded 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 Advance Directive(s) 08/28/2015 9:03 PM [...] Referred By Alisa leavitt Referred To Contact Ophthalmology Diagnoses Screening for diabetic retinopathy Procedures CONSULT TO OPHTHALMOLOGY OFFICE/OUTPATIENT [facility] 60-[place] [address] [place] [address] Referral ID Status Reason Start Date Expiration Date Visits Requested Visits Authorized [id number] Pending Review PCP Requested Referral 2 10/23/2023 1 1 Specialty Diagnoses / Procedures Referred By Contac t Referred To Contact [facility] Diagnoses Muscular deconditioning Procedures CONSULT TO PHYSICAL THERAPY PHYSICAL THERAPY EVALUATION HIGH COMPLEX 45 MINS [facility] [place], 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 [address] [phone] [facility] [place] [id number] Referral ID Status Reason Start Date Expiration Date Visits Requested Visits Authorized [id number] Pending Review Auto-Generat ed Referral 03/17/2023 03/16/2024 1 1 Specialty Diagnoses / Procedures Referred By Contac t Referred To Contact Diagnoses Leukocytosis, unspecified type Procedures CONSULT TO HEMATOLOGY/ONCOLOGY OFFICE/OUTPATIENT [facility] 60 [place] [address] [place] [address] Referral ID Status Reason Start Date Expiration Date Visits Requested Visits Authorized [id number] Authorized PCP Requested Referral 09/04/2025 1 1 Specialty Diagnoses / Procedures Referred By Contac t Referred To Contact Orthopedics Diagnoses Right ankle swelling Closed nondisplaced fracture of right calcaneus, unspecified portion of calcaneus, initial encounter Procedures CONSULT PANEL TO ORTHOPAEDICS OFFICE/OUTPATIENT [facility] [address] [place] [address] [place] [address] Referral ID Status Reason Start Date Expiration Date Visits Requested Visits Authorized [id number] Authorized PCP Requested Referral 09/18/2024 09/18/2025 1 1 Specialty Diagnoses / Procedures Referred By Contac t Referred To Contact MR IMAGING Diagnoses Chronic pain of right ankle Procedures MRI ANKLE WO IVCON RIGHT MRI ANY JT LOWER EXTREM W/O CONTRAST MATRL Simone Kevin MD [address] [place] [address] [facility] [address] [address] Referral ID Status Reason Start Date Expiration Date Visits Requested Visits Authorized [id number] Authorized Auto-Generat ed Referral 12/01/2025 1 1 Specialty Diagnoses / Procedures Referred By Contac t Referred To Contact XR IMAGING Diagnoses Right ankle swelling Procedures XR FOOT GENERAL 3V AP/LAT/OBL RIGHT RADEX FOOT COMPLETE MINIMUM 3 VIEWS Simone Kevin MD [address] [place] [address] X[address] [place] [address] Referral ID Status Reason Start Date Expiration Date V isits Requested Visits Authorized [id number] Closed Auto-Generate d Referral 11/01/2024 12/01/2025 1 1 Specialty Diagnoses / Procedures Referred By Contac t Referred To Contact XR IMAGING Diagnoses Right ankle swelling Procedures XR ANKLE GENERAL 3V AP/LAT/OBL RIGHT RADEX ANKLE COMPLETE MINIMUM 3 VIEWS Simone Kevin MD [address] [id number] Xr Imaging [facility] Referral ID Status Reason Start Date Expiration Date V isits Requested Visits Authorized [id number] Closed Auto-Generate d Referral 11/01/2024 12/01/2025 1 1 Referral ID Status Reason Start Date Expiration Date V isits Requested Visits Authorized [id number] Closed Auto-Generate d Referral 11/01/2024 12/01/2025 1 1 Chief Complaint and Reason for Visit Chief Complaint Admit Date LAB WORK December 17, 2024 4 :00am LAB WORK December 24, 2024 4:00am LABWORK 2024 5:00am LABWORK January 07, 2025 5:00am LONGTERM LAB WORK January 15, 2025 5: 00am Chief Complaint Admit Date LAB WORK December 17, 2024 4 :00am LAB WORK December 24, 2024 4:00am LABWORK 2024 5:00am LABWORK January 07, 2025 5:00am LONGTERM LAB WORK January 15, 2025 5: 00am LONGTERM LAB WORK February 04, 2025 5 :00am Chief Complaint Admit Date LAB WORK December 17, 2024 4 :00am LAB WORK December 24, 2024 4:00am LABWORK 2024 5:00am LABWORK January 07, 2025 5:00am LONGTERM LAB WORK January 15, 2025 5: 00am LONGTERM LAB WORK February 04, 2025 5 :00am LONGTERM LAB WORK March 04, 2025 5 :00am Chief Complaint Admit Date LAB WORK December 24, 2024 4:00am LABWORK 2024 5:00am LABWORK January 07, 2025 5:00am LONGTERM LAB WORK January 15, 2025 5: 00am LONGTERM LAB WORK February 04, 2025 5 :00am LONGTERM LAB WORK March 04, 2025 5 :00am LONGTERM LAB WORK March 12, 2025 4 :00am LABWORK April 01, 2025 5:00a m Chief Complaint Admit Date LAB WORK December 24, 2024 4:00am LABWORK 2024 5:00am LABWORK January 07, 2025 5:00am LONGTERM LAB WORK January 15, 2025 5: 00am LONGTERM LAB WORK February 04, 2025 5 :00am LONGTERM LAB WORK March 04, 2025 5 :00am LONGTERM LAB WORK March 12, 2025 4 :00am Additional Source Comments INFORMATION SOURCE (unrecogn ized section and content) DATE CREATED AUTHOR 12/10/2021 [facility] DATE CREATED AUTHOR AUTHOR'S ORGANIZ ATION 02/16/2025 [facility] DATE CREATED AUTHOR AUTHOR'S ORGANIZ ATION 05/30/2025 [facility] DATE CREATED AUTHOR AUTHOR'S ORGANIZ ATION 06/01/2025 [facility] Source Comments (unrecognize d section and content) In the event this informatio n is protected by the Federal Confidentiality of Alcohol and Drug Abuse Patient Records regulations: The Federal rules restrict any use of the information to criminally investigate or prosecute any alcohol or drug abuse patient.[facility] the event this information is protected by the Federal Confidentiality of Alcohol and Drug Abuse Patient Records regulations: The Federal rules restrict any use of the information to criminally investigate or prosecute any alcohol or drug abuse patient.[facility]In the event this information is protected by the Federal Confidentiality of Alcohol and Drug Abuse Patient Records regulations: The Federal rules restrict any use of the information to criminally investigate or prosecute any alcohol or drug abuse patient.[facility]In the event this information is protected by the Federal Confidentiality of Alcohol and Drug Abuse Patient Records regulations: The Federal rules restrict any use of the information to criminally investigate or prosecute any alcohol or drug abuse patient.[facility]In the event this information is protected by the Federal Confidentiality of Alcohol and Drug Abuse Patient Records regulations: The Federal rules restrict any use of the information to criminally investigate or prosecute any alcohol or drug abuse patient.[facility]In the event this information is protected by the Federal Confidentiality of Alcohol and Drug Abuse Patient Records regulations: The Federal rules restrict any use of the information to criminally investigate or prosecute any alcohol or drug abuse patient.[facility]In the event this information is protected by the Federal Confidentiality of Alcohol and Drug Abuse Patient Records regulations: The Federal rules restrict any use of the information to criminally investigate or prosecute any alcohol or drug abuse patient.[facility]In the event this information is protected by the Federal Confidentiality of Alcohol and Drug Abuse Patient Records regulations: The Federal rules restrict any use of the information to criminally investigate or prosecute any alcohol or drug abuse patient.[facility]In the event this information is protected by the Federal Confidentiality of Alcohol and Drug Abuse Patient Records regulations: The Federal rules restrict any use of the information to criminally investigate or prosecute any alcohol or drug abuse patient.[facility] HospitalIn the event this information is protected by the Federal Confidentiality of Alcohol and Drug Abuse Patient Records regulations: The Federal rules restrict any use of the information to criminally investigate or prosecute any alcohol or drug abuse patient.[facility] HospitalIn the event this information is protected by the Federal Confidentiality of Alcohol and Drug Abuse Patient Records regulations: The Federal rules restrict any use of the information to criminally investigate or prosecute any alcohol or drug abuse patient.[facility] HospitalIn the event this information is protected by the Federal Confidentiality of Alcohol and Drug Abuse Patient Records regulations: The Federal rules restrict any use of the information to criminally investigate or prosecute any alcohol or drug abuse patient.[facility] HospitalIn the event this information is protected by the Federal Confidentiality of Alcohol and Drug Abuse Patient Records regulations: The Federal rules restrict any use of the information to criminally investigate or prosecute any alcohol or drug abuse patient.[facility] HospitalIn the event this information is protected by the Federal Confidentiality of Alcohol and Drug Abuse Patient Records regulations: The Federal rules restrict any use of the information to criminally investigate or prosecute any alcohol or drug abuse patient.[facility] HospitalIn the event this information is protected by the Federal Confidentiality of Alcohol and Drug Abuse Patient Records regulations: The Federal rules restrict any use of the information to criminally investigate or prosecute any alcohol or drug abuse patient.[facility] HospitalIn the event this information is protected by the Federal Confidentiality of Alcohol and Drug Abuse Patient Records regulations: The Federal rules restrict any use of the information to criminally investigate or prosecute any alcohol or drug abuse patient.[facility] HospitalIn the event this information is protected by the Federal Confidentiality of Alcohol and Drug Abuse Patient Records regulations: The Federal rules restrict any use of the information to criminally investigate or prosecute any alcohol or drug abuse patient.[facility] HospitalIn the event this information is protected by the Federal Confidentiality of Alcohol and Drug Abuse Patient Records regulations: The Federal rules restrict any use of the information to criminally investigate or prosecute any alcohol or drug abuse patient.[facility] HospitalIn the event this information is protected by the Federal Confidentiality of Alcohol and Drug Abuse Patient Records regulations: The Federal rules restrict any use of the information to criminally investigate or prosecute any alcohol or drug abuse patient.[facility] HospitalIn the event this information is protected by the Federal Confidentiality of Alcohol and Drug Abuse Patient Records regulations: The Federal rules restrict any use of the information to criminally investigate or prosecute any alcohol or drug abuse patient.[facility] HospitalIn the event this information is protected by the Federal Confidentiality of Alcohol and Drug Abuse Patient Records regulations: The Federal rules restrict any use of the information to criminally investigate or prosecute any alcohol or drug abuse patient.[facility] HospitalIn the event this information is protected by the Federal Confidentiality of Alcohol and Drug Abuse Patient Records regulations: The Federal rules restrict any use of the information to criminally investigate or prosecute any alcohol or drug abuse patient.[facility] HospitalIn the event this information is protected by the Federal Confidentiality of Alcohol and Drug Abuse Patient Records regulations: The Federal rules restrict any use of the information to criminally investigate or prosecute any alcohol or drug abuse patient.[facility] HospitalIn the event this information is protected by the Federal Confidentiality of Alcohol and Drug Abuse Patient Records regulations: The Federal rules restrict any use of the information to criminally investigate or prosecute any alcohol or drug abuse patient.[facility] HospitalIn the event this information is protected by the Federal Confidentiality of Alcohol and Drug Abuse Patient Records regulations: The Federal rules restrict any use of the information to criminally investigate or prosecute any alcohol or drug abuse patient.[facility] HospitalIn the event this information is protected by the Federal Confidentiality of Alcohol and Drug Abuse Patient Records regulations: The Federal rules restrict any use of the information to criminally investigate or prosecute any alcohol or drug abuse patient.[facility] HospitalIn the event this information is protected by the Federal Confidentiality of Alcohol and Drug Abuse Patient Records regulations: The Federal rules restrict any use of the information to criminally investigate or prosecute any alcohol or drug abuse patient.[facility] HospitalIn the event this information is protected by the Federal Confidentiality of Alcohol and Drug Abuse Patient Records regulations: The Federal rules restrict any use of the information to criminally investigate or prosecute any alcohol or drug abuse patient.[facility] HospitalIn the event this information is protected by the Federal Confidentiality of Alcohol and Drug Abuse Patient Records regulations: The Federal rules restrict any use of the information to criminally investigate or prosecute any alcohol or drug abuse patient.[facility] HospitalIn the event this information is protected by the Federal Confidentiality of Alcohol and Drug Abuse Patient Records regulations: The Federal rules restrict any use of the information to criminally investigate or prosecute any alcohol or drug abuse patient.[facility] HospitalIn the event this information is protected by the Federal Confidentiality of Alcohol and Drug Abuse Patient Records regulations: The Federal rules restrict any use of the information to criminally investigate or prosecute any alcohol or drug abuse patient.[facility] HospitalIn the event this information is protected by the Federal Confidentiality of Alcohol and Drug Abuse Patient Records regulations: The Federal rules restrict any use of the information to criminally investigate or prosecute any alcohol or drug abuse patient.[facility] HospitalIn the event this information is protected by the Federal Confidentiality of Alcohol and Drug Abuse Patient Records regulations: The Federal rules restrict any use of the information to criminally investigate or prosecute any alcohol or drug abuse patient.[facility] HospitalIn the event this information is protected by the Federal Confidentiality of Alcohol and Drug Abuse Patient Records regulations: The Federal rules restrict any use of the information to criminally investigate or prosecute any alcohol or drug abuse patient.[facility] HospitalIn the event this information is protected by the Federal Confidentiality of Alcohol and Drug Abuse Patient Records regulations: The Federal rules restrict any use of the information to criminally investigate or prosecute any alcohol or drug abuse patient.[facility] HospitalIn the event this information is protected by the Federal Confidentiality of Alcohol and Drug Abuse Patient Records regulations: The Federal rules restrict any use of the information to criminally investigate or prosecute any alcohol or drug abuse patient.[facility] HospitalIn the event this information is protected by the Federal Confidentiality of Alcohol and Drug Abuse Patient Records regulations: The Federal rules restrict any use of the information to criminally investigate or prosecute any alcohol or drug abuse patient.[facility] HospitalIn the event this information is protected by the Federal Confidentiality of Alcohol and Drug Abuse Patient Records regulations: The Federal rules restrict any use of the information to criminally investigate or prosecute any alcohol or drug abuse patient.[facility] HospitalIn the event this information is protected by the Federal Confidentiality of Alcohol and Drug Abuse Patient Records regulations: The Federal rules restrict any use of the information to criminally investigate or prosecute any alcohol or drug abuse patient.[facility] HospitalIn the event this information is protected by the Federal Confidentiality of Alcohol and Drug Abuse Patient Records regulations: The Federal rules restrict any use of the information to criminally investigate or prosecute any alcohol or drug abuse patient.[facility] HospitalIn the event this information is protected by the Federal Confidentiality of Alcohol and Drug Abuse Patient Records regulations: The Federal rules restrict any use of the information to criminally investigate or prosecute any alcohol or drug abuse patient.[facility] HospitalIn the event this information is protected by the Federal Confidentiality of Alcohol and Drug Abuse Patient Records regulations: The Federal rules restrict any use of the information to criminally investigate or prosecute any alcohol or drug abuse patient.[facility] HospitalIn the event this information is protected by the Federal Confidentiality of Alcohol and Drug Abuse Patient Records regulations: The Federal rules restrict any use of the information to criminally investigate or prosecute any alcohol or drug abuse patient.[facility] HospitalIn the event this information is protected by the Federal Confidentiality of Alcohol and Drug Abuse Patient Records regulations: The Federal rules restrict any use of the information to criminally investigate or prosecute any alcohol or drug abuse patient.[facility] HospitalIn the event this information is protected by the Federal Confidentiality of Alcohol and Drug Abuse Patient Records regulations: The Federal rules restrict any use of the information to criminally investigate or prosecute any alcohol or drug abuse patient.[facility] HospitalIn the event this information is protected by the Federal Confidentiality of Alcohol and Drug Abuse Patient Records regulations: The Federal rules restrict any use of the information to criminally investigate or prosecute any alcohol or drug abuse patient.[facility] HospitalIn the event this information is protected by the Federal Confidentiality of Alcohol and Drug Abuse Patient Records regulations: The Federal rules restrict any use of the information to criminally investigate or prosecute any alcohol or drug abuse patient.[facility] HospitalIn the event this information is protected by the Federal Confidentiality of Alcohol and Drug Abuse Patient Records regulations: The Federal rules restrict any use of the information to criminally investigate or prosecute any alcohol or drug abuse patient.[facility] HospitalIn the event this information is protected by the Federal Confidentiality of Alcohol and Drug Abuse Patient Records regulations: The Federal rules restrict any use of the information to criminally investigate or prosecute any alcohol or drug abuse patient.[facility] HospitalIn the event this information is protected by the Federal Confidentiality of Alcohol and Drug Abuse Patient Records regulations: The Federal rules restrict any use of the information to criminally investigate or prosecute any alcohol or drug abuse patient.[facility] HospitalIn the event this information is protected by the Federal Confidentiality of Alcohol and Drug Abuse Patient Records regulations: The Federal rules restrict any use of the information to criminally investigate or prosecute any alcohol or drug abuse patient.[facility] HospitalIn the event this information is protected by the Federal Confidentiality of Alcohol and Drug Abuse Patient Records regulations: The Federal rules restrict any use of the information to criminally investigate or prosecute any alcohol or drug abuse patient.[facility] HospitalIn the event this information is protected by the Federal Confidentiality of Alcohol and Drug Abuse Patient Records regulations: The Federal rules restrict any use of the information to criminally investigate or prosecute any alcohol or drug abuse patient.[facility] HospitalIn the event this information is protected by the Federal Confidentiality of Alcohol and Drug Abuse Patient Records regulations: The Federal rules restrict any use of the information to criminally investigate or prosecute any alcohol or drug abuse patient.[facility] HospitalIn the event this information is protected by the Federal Confidentiality of Alcohol and Drug Abuse Patient Records regulations: The Federal rules restrict any use of the information to criminally investigate or prosecute any alcohol or drug abuse patient.[facility] HospitalIn the event this information is protected by the Federal Confidentiality of Alcohol and Drug Abuse Patient Records regulations: The Federal rules restrict any use of the information to criminally investigate or prosecute any alcohol or drug abuse patient.[facility] HospitalIn the event this information is protected by the Federal Confidentiality of Alcohol and Drug Abuse Patient Records regulations: The Federal rules restrict any use of the information to criminally investigate or prosecute any alcohol or drug abuse patient.[facility] HospitalIn the event this information is protected by the Federal Confidentiality of Alcohol and Drug Abuse Patient Records regulations: The Federal rules restrict any use of the information to criminally investigate or prosecute any alcohol or drug abuse patient.[facility] HospitalIn the event this information is protected by the Federal Confidentiality of Alcohol and Drug Abuse Patient Records regulations: The Federal rules restrict any use of the information to criminally investigate or prosecute any alcohol or drug abuse patient.[facility] HospitalIn the event this information is protected by the Federal Confidentiality of Alcohol and Drug Abuse Patient Records regulations: The Federal rules restrict any use of the information to criminally investigate or prosecute any alcohol or drug abuse patient.[facility] HospitalIn the event this information is protected by the Federal Confidentiality of Alcohol and Drug Abuse Patient Records regulations: The Federal rules restrict any use of the information to criminally investigate or prosecute any alcohol or drug abuse patient.[facility] HospitalIn the event this information is protected by the Federal Confidentiality of Alcohol and Drug Abuse Patient Records regulations: The Federal rules restrict any use of the information to criminally investigate or prosecute any alcohol or drug abuse patient.[facility] HospitalIn the event this information is protected by the Federal Confidentiality of Alcohol and Drug Abuse Patient Records regulations: The Federal rules restrict any use of the information to criminally investigate or prosecute any alcohol or drug abuse patient.[facility] HospitalIn the event this information is protected by the Federal Confidentiality of Alcohol and Drug Abuse Patient Records regulations: The Federal rules restrict any use of the information to criminally investigate or prosecute any alcohol or drug abuse patient.[facility] HospitalIn the event this information is protected by the Federal Confidentiality of Alcohol and Drug Abuse Patient Records regulations: The Federal rules restrict any use of the information to criminally investigate or prosecute any alcohol or drug abuse patient.[facility] HospitalIn the event this information is protected by the Federal Confidentiality of Alcohol and Drug Abuse Patient Records regulations: The Federal rules restrict any use of the information to criminally investigate or prosecute any alcohol or drug abuse patient.[facility] HospitalIn the event this information is protected by the Federal Confidentiality of Alcohol and Drug Abuse Patient Records regulations: The Federal rules restrict any use of the information to criminally investigate or prosecute any alcohol or drug abuse patient.[facility] HospitalIn the event this information is protected by the Federal Confidentiality of Alcohol and Drug Abuse Patient Records regulations: The Federal rules restrict any use of the information to criminally investigate or prosecute any alcohol or drug abuse patient.[facility] HospitalIn the event this information is protected by the Federal Confidentiality of Alcohol and Drug Abuse Patient Records regulations: The Federal rules restrict any use of the information to criminally investigate or prosecute any alcohol or drug abuse patient.[facility] HospitalIn the event this information is protected by the Federal Confidentiality of Alcohol and Drug Abuse Patient Records regulations: The Federal rules restrict any use of the information to criminally investigate or prosecute any alcohol or drug abuse patient.[facility] HospitalIn the event this information is protected by the Federal Confidentiality of Alcohol and Drug Abuse Patient Records regulations: The Federal rules restrict any use of the information to criminally investigate or prosecute any alcohol or drug abuse patient.[facility] HospitalIn the event this information is protected by the Federal Confidentiality of Alcohol and Drug Abuse Patient Records regulations: The Federal rules restrict any use of the information to criminally investigate or prosecute any alcohol or drug abuse patient.[facility] HospitalIn the event this information is protected by the Federal Confidentiality of Alcohol and Drug Abuse Patient Records regulations: The Federal rules restrict any use of the information to criminally investigate or prosecute any alcohol or drug abuse patient.[facility] HospitalIn the event this information is protected by the Federal Confidentiality of Alcohol and Drug Abuse Patient Records regulations: The Federal rules restrict any use of the information to criminally investigate or prosecute any alcohol or drug abuse patient.[facility] HospitalIn the event this information is protected by the Federal Confidentiality of Alcohol and Drug Abuse Patient Records regulations: The Federal rules restrict any use of the information to criminally investigate or prosecute any alcohol or drug abuse patient.[facility] HospitalIn the event this information is protected by the Federal Confidentiality of Alcohol and Drug Abuse Patient Records regulations: The Federal rules restrict any use of the information to criminally investigate or prosecute any alcohol or drug abuse patient.[facility] HospitalIn the event this information is protected by the Federal Confidentiality of Alcohol and Drug Abuse Patient Records regulations: The Federal rules restrict any use of the information to criminally investigate or prosecute any alcohol or drug abuse patient.[facility] HospitalIn the event this information is protected by the Federal Confidentiality of Alcohol and Drug Abuse Patient Records regulations: The Federal rules restrict any use of the information to criminally investigate or prosecute any alcohol or drug abuse patient.[facility] HospitalIn the event this information is protected by the Federal Confidentiality of Alcohol and Drug Abuse Patient Records regulations: The Federal rules restrict any use of the information to criminally investigate or prosecute any alcohol or drug abuse patient.[facility] HospitalIn the event this information is protected by the Federal Confidentiality of Alcohol and Drug Abuse Patient Records regulations: The Federal rules restrict any use of the information to criminally investigate or prosecute any alcohol or drug abuse patient.[facility] HospitalIn the event this information is protected by the Federal Confidentiality of Alcohol and Drug Abuse Patient Records regulations: The Federal rules restrict any use of the information to criminally investigate or prosecute any alcohol or drug abuse patient.[facility] HospitalIn the event this information is protected by the Federal Confidentiality of Alcohol and Drug Abuse Patient Records regulations: The Federal rules restrict any use of the information to criminally investigate or prosecute any alcohol or drug abuse patient.[facility] HospitalIn the event this information is protected by the Federal Confidentiality of Alcohol and Drug Abuse Patient Records regulations: The Federal rules restrict any use of the information to criminally investigate or prosecute any alcohol or drug abuse patient.[facility] HospitalIn the event this information is protected by the Federal Confidentiality of Alcohol and Drug Abuse Patient Records regulations: The Federal rules restrict any use of the information to criminally investigate or prosecute any alcohol or drug abuse patient.[facility] HospitalIn the event this information is protected by the Federal Confidentiality of Alcohol and Drug Abuse Patient Records regulations: The Federal rules restrict any use of the information to criminally investigate or prosecute any alcohol or drug abuse patient.[facility] HospitalIn the event this information is protected by the Federal Confidentiality of Alcohol and Drug Abuse Patient Records regulations: The Federal rules restrict any use of the information to criminally investigate or prosecute any alcohol or drug abuse patient.[facility] HospitalIn the event this information is protected by the Federal Confidentiality of Alcohol and Drug Abuse Patient Records regulations: The Federal rules restrict any use of the information to criminally investigate or prosecute any alcohol or drug abuse patient.[facility] HospitalIn the event this information is protected by the Federal Confidentiality of Alcohol and Drug Abuse Patient Records regulations: The Federal rules restrict any use of the information to criminally investigate or prosecute any alcohol or drug abuse patient.[facility] HospitalIn the event this information is protected by the Federal Confidentiality of Alcohol and Drug Abuse Patient Records regulations: The Federal rules restrict any use of the information to criminally investigate or prosecute any alcohol or drug abuse patient.[facility] HospitalIn the event this information is protected by the Federal Confidentiality of Alcohol and Drug Abuse Patient Records regulations: The Federal rules restrict any use of the information to criminally investigate or prosecute any alcohol or drug abuse patient.[facility] HospitalIn the event this information is protected by the Federal Confidentiality of Alcohol and Drug Abuse Patient Records regulations: The Federal rules restrict any use of the information to criminally investigate or prosecute any alcohol or drug abuse patient.[facility] Reason for Visit (unrecogniz ed section [...] Date Comments Population Health Navigation Outreach 03/13[facility]2024 [facility] Reason Comments Diabetic Eye Exam Reason Comments Follow Up Reason Onset Date Comments Fatigue 08/13/2024 Reason Comments Hospital Follow Up Reason Comments Radiology XR Specialty Diagnoses / Procedures Referred By Contac t Referred To Contact XR IMAGING Diagnoses Pain Procedures XR SHOULDER GENERAL 3V OR MORE AP/TRUE AP/OTHER LT X-RAY SHOULDER COMPLET [place] [address] [place] [address] [place] [address] Xr Imaging [place] [address] Referral ID Status Reason Start Date Expiration Date V isits Requested Visits Authorized Closed Auto-Generate d Referral 07/09/2021 08/08/2022 1 1 Reason Comments Results Reason Comments Radio Gen RMP Radiology Service Pr ogress NotePATIENT NAME: Yusuf MedinaMRN: [id number] OF SERVICE: September 17, 2024TIME: 4:30 PMPATIENT [...] COMPLETE MINIMUM 3 [place] [address] [place] [id number] Xr Imaging [facility] Referral ID Status Reason Start Date Expiration Date V isits Requested Visits Authorized [id number] Closed Auto-Generate d Referral 09/17/2024 10/17/2025 1 1 Reason Comments Results Suspicion for calcan eal bone fracture Reason Comments Radiology US Specialty Diagnoses / Procedures Referred By Contac t Referred To Contact US IMAGING Diagnoses Right ankle swelling Procedures US DVT LOWER RIGHT DUP-SCAN XTR VEINS UNILATERAL/[place] [address] [place] [id number] Us Imaging [id number] Referral ID Status Reason Start Date Expiration Date V isits Requested Visits Authorized [id number] Closed Auto-Generate d Referral 09/18/2024 10/17/2025 1 1 Reason Comments New 8/10 PAIN CONSTANT A ABEL Pain 8/10 PAIN CONSTANT A ABEL Specialty Diagnoses / Procedures Referred By Contac t Referred To Contact Orthopedics / ORTHOPAEDIC SURGERY Diagnoses Right ankle swelling Closed nondisplaced fracture of right calcaneus, unspecified portion of calcaneus, initial encounter Procedures CONSULT PANEL TO ORTHOPAEDICS OFFICE/OUTPATIENT [facility] 60 [place] [address] [place] [phone] [facility] [address] [place] [address] Referral ID Status Reason Start Date Expiration Date V isits Requested Visits Authorized [id number] Closed PCP Requested Referral 09/18/2024 09/18/2025 1 1 Reason Comments Consult leukocytosis Specialty Diagnoses / Procedures Referred By Contac t Referred To Contact Diagnoses Leukocytosis, unspecified type Procedures CONSULT TO HEMATOLOGY/ONCOLOGY OFFICE/OUTPATIENT [facility] [address] [place] [address] [place] [address] Referral ID Status Reason Start Date Expiration Date V isits Requested Visits Authorized [id number] Closed PCP Requested Referral 09/04/2024 09/04/2025 1 1 Reason Comments Medicare Wellness Exam Reason Comments Follow Up Reason Comments Radio Gen RMP Radiology Service Pr ogress NotePATIENT NAME: Yusuf MedinaMRN: [id number] OF SERVICE: November 01, 2024TIME: 2:15 PMPATIENT [...] eulogio Specialty Diagnoses / Procedures Referred By Alisa leavitt Referred To Contact XR IMAGING Diagnoses Right ankle swelling Procedures XR FOOT GENERAL 3V AP/LAT/OBL RIGHT RADEX FOOT COMPLETE MINIMUM 3 VIEWS Simone Kevin MD [address] [place] [address] Xr Imaging [place] [address] Referral ID Status Reason Start Date Expiration Date V isits Requested Visits Authorized [id number] Closed Auto-Generate d Referral 11/01/2024 12/01/2025 1 1 Reason Comments infection on ankle Right ankle looks in fected Specialty Diagnoses / Procedures Referred By Alisa leavitt Referred To Contact MR IMAGING Diagnoses Chronic pain of right ankle Procedures MRI ANKLE WO IVCON RIGHT MRI ANY JT LOWER EXTREM W/O CONTRAST MATRL Simone Kevin MD [address] [place] [phone] Mr Imaging [place] [address] Referral ID Status Reason Start Date Expiration Date V isits Requested Visits Authorized [id number] Closed Auto-Generate d Referral 11/01/2024 12/01/2025 1 [...] results Reason Comments Wound Check Right ankle Reason Comments Results Outside lab results Care Teams (unrecognized sec tion and content) [employer] Di[employer] Relationship Specialty [place] [address] [place] [address] PCP - General Family Practice 10/05/10 Edenilson Townsend [address] [facility] [place] [address] Consulting Optometry 12/07/17 [employer] Relationship Specialty [place] [address] [place] [address] PCP - General Family Practice 10/05/10 Edenilson Townsend [address] [facility] [place] [address] Consulting Optometry 12/07/17 [employer] Relationship Specialty [place] [address] [place] [address] PCP - General Family Practice 10/05/10 Edenilson Townsend [address] [place] [place] [address] Consulting Optometry 12/07/17 [employer] Relationship Specialty [place] [address] [place] [address] PCP - General Family Practice 10/05/10 Edenilson Townsend [address] [place] [place] [address] Consulting Optometry 12/07/17 José Miguel Swanson, [facility] [address] [place], [place] [id number] Transitional Care Pharmacist Pharmacy 03/30/22 04/30/22 Katia Farooq, corporate travel manager [employer] 03/30/22 04/29/22 [employer] Relationship Specialty [place] [address] [place] [address] PCP - General Family Practice 10/05/10 Edenilson Townsend [address] [place] [address] Consulting Optometry 12/07/17 José Miguel Swanson [facility] [address] [place] [address] Transitional Care Pharmacist Pharmacy 03/30/22 04/30/22 Katia Farooq, corporate travel manager [employer] 03/30/22 04/29/22 [employer] Relationship Specialty [place] [address] [place] [address] PCP - General Family Practice 10/05/10 Edenilson Townsend [address] [place] [address] Consulting Optometry 12/07/17 oJsé Miguel Swanson [facility] [address] [place] [address] Transitional Care Pharmacist Pharmacy 03/30/22 04/30/22 Katia Farooq, corporate travel manager [employer] 03/30/22 04/29/22 [employer] Relationship Specialty [place] [address] [place] [address] PCP - General Family Practice 10/05/10 Edenilson Townsend [address] [place] [address] Consulting Optometry 12/07/17 José Miguel Swanson [facility] [address] [place] [address] Transitional Care Pharmacist Pharmacy 03/30/22 04/30/22 Katia Farooq, corporate travel manager [employer] 03/30/22 04/29/22 [employer] Di[employer] Relationship Specialty [place] [address] [place] [address] PCP - General Family Practice 10/05/10 Edenilson Townsend [address] [place] [place] [address] Consulting Optometry 12/07/17 José Miguel Swanson, [facility] [address] [place] [address] Transitional Care Pharmacist Pharmacy 03/30/22 04/30/22 Katia Farooq, corporate travel manager [employer] 03/30/22 04/29/22 [employer] Di[employer] Relationship Specialty [place] [address] [place] [address] PCP - General Family Practice 10/05/10 Edenilson Townsend [address] [place] [place] [address] Consulting Optometry 12/07/17 [employer] Di[employer] Relationship Specialty [place] [address] [place] [address] PCP - General Family Practice 10/05/10 Edenilson Townsend [address] [place] [place] [address] Consulting Optometry 12/07/17 [employer] Chocolate Dipper Relationship Specialty [place] [address] [place] [address] PCP - General Family Practice 10/05/10 Edenilson Townsend [address] [facility] [place] [place] [address] Consulting Optometry 12/07/17 Cone Chocolate Dipper Relationship Specialty [place] [address] [place] [address] PCP - General Family Medicine 10/05/10 Edenilson Townsend [address] [facility] [place] [place] [address] Consulting Optometry 12/07/17 [employer] Chocolate Dipper Relationship Specialty [place] [address] [place] [address] PCP - General Family Medicine 10/05/10 Edenilson Townsend [address] [place] [place] [address] Consulting Optometry 12/07/17 [employer] Dipper Relationship Specialty [place] [address] [place] [address] PCP - General Family Medicine 10/05/10 Edenilson Townsend [address] [place] [place] [address] Consulting Optometry 12/07/17 [employer] Chocolate Dipper Relationship Specialty Start [place] [address] [place] [address] PCP - General Family Medicine 10/05/10 Edenilson Townsend [address] [place] [address] Consulting Optometry 12/07/17 [employer] Chocolate Dipper Relationship Specialty [place] [address] [place] [address] PCP - General Family Medicine 10/05/10 Edenilson Townsend [address] [facility] [place] [address] Consulting Optometry 12/07/17 [place] [address] [place] [address] Primary Care [employer] 03/10/23 04/08/23 [employer]one Chocolate Dipper Relationship Specialty [place] [address] [place] [address] PCP - General Family Medicine 10/05/10 Edenilson Townsend [address] [facility] [place] [address] Consulting Optometry 12/07/17 [place] [address] [place] [address] [employer] 03/10/23 04/08/23 [employer]one Chocolate Dipper Relationship Specialty [place] [address] [place] [address] PCP - General Family Medicine 10/05/10 Edenilson Townsend [address] [facility] [place] [address] Consulting Optometry 12/07/17 [place] [address] [place] [address] [employer] 03/10/23 04/08/23 Cone Chocolate Dipper Relationship Specialty Start [place] [address] [place] [address] PCP - General Family Medicine 10/05/10 Edenilson Townsend [address] [place] [place] [address] Consulting Optometry 12/07/17 [place] [address] [place] [address] [employer] 03/10/23 04/08/23 [employer]one Chocolate Dipper Relationship Specialty Start [place] [address] [place] [address] PCP - General Family Medicine 10/05/10 Edenilson Townsend [address] [place] [place] [address] Consulting Optometry 12/07/17 Cone Chocolate Dipper Relationship Specialty [place] [address] [place] [address] PCP - General Family Medicine 10/05/10 Edenilson Townsend [address] [facility] [place] [place] [address] Consulting Optometry 12/07/17 Cone Chocolate Dipper Relationship Specialty Start [place] [address] [place] [address] PCP - General Family Medicine 10/05/10 Edenilson Townsend [address] [place] [place] [address] Consulting Optometry 12/07/17 Cone Chocolate Dipper Relationship Specialty Start [place] [address] [place] [address] PCP - General Family Medicine 10/05/10 Edenilson Townsend [address] [facility] [place] [place] [address] Consulting Optometry 12/07/17 Cone Chocolate Dipper Relationship Specialty Start [place] [address] [place] [address] PCP - General Family Medicine 10/05/10 Edenilson Townsend [address] [facility] [place] [place] [address] Consulting Optometry 12/07/17 Cone Chocolate Dipper Relationship Specialty Start [place] [address] [place] [address] PCP - General Family Medicine 10/05/10 Edenilson Townsend [address] [facility] [place] [place] [address] Consulting Optometry 12/07/17 Cone Chocolate Dipper Relationship Specialty Start [place] [address] [place] [address] PCP - General Family Medicine 10/05/10 Edenilson Townsend, [place] [address] [facility] [place] [address] Consulting Optometry 12/07/17 Cone Chocolate Dipper Relationship Specialty Start [place] [address] [place] [address] PCP - General Family Medicine 10/05/10 Edenilson Townsend, [place] [address] [facility] [place] [address] Consulting Optometry 12/07/17 Cone Chocolate Dipper Relationship Specialty Start [place] [address] [place] [address] PCP - General Family Medicine 10/05/10 Edenilson Townsend, OD [address] [place] [address] Consulting Optometry 12/07/17 Cone Chocolate Dipper Relationship Specialty Start [place] [address] [place] [address] PCP - General Family Medicine 10/05/10 Edenilson Townsend, OD [address] [place] [address] Consulting Optometry 12/07/17 Cone Chocolate Dipper Relationship Specialty Start [place] [address] [place] [address] PCP - General Family Medicine 10/05/10 Edenilson Townsend OD [address] [facility] [place] [address] Consulting Optometry 12/07/17 Cone Chocolate Dipper Relationship Specialty Start [place] [address] [place] [address] PCP - General Family Medicine 10/05/10 Edenilson Townsend OD [address] [facility] [place] [address] Consulting Optometry 12/07/17 Cone Chocolate Dipper Relationship Specialty Start [place] [address] [place] [address] PCP - General Family Medicine 10/05/10 Edenilson Townsend OD [address] [facility] [place] [address] Consulting Optometry 12/07/17 Cone Chocolate Dipper Relationship Specialty Start [place] [address] [place] [address] PCP - General Family Medicine 10/05/10 Edenilson Townsend OD [address] [facility] [place] [address] Consulting Optometry 12/07/17 [employer]one Chocolate Dipper Relationship Specialty Start [place] [address] [place] [address] PCP - General Family Medicine 10/05/10 Edenilson Townsend OD [address] [place] [place] [address] Consulting Optometry 12/07/17 [employer]one Chocolate Dipper Relationship Specialty [place] [address] [place] [address] PCP - General Family Medicine 10/05/10 Edenilson Townsend, OD [address] [facility] [place] [address] Consulting Optometry 12/07/17 Cone Chocolate Dipper Relationship Specialty [place] [address] [place] [address] PCP - General Family Medicine 10/05/10 Edenilson Townsend, OD [address] [facility] [place] [address] Consulting Optometry 12/07/17 Cone Chocolate Dipper Relationship Specialty [place] [address] [place] [address] PCP - General Family Medicine 10/05/10 Edenilson Townsend, OD [address] [place] [address] Consulting Optometry 12/07/17 Cone Chocolate Dipper Relationship Specialty [place] [address] [place] [address] PCP - General Family Medicine 10/05/10 Edenilson Townsend, OD [address] [facility] [place] [address] Consulting Optometry 12/07/17 Cone Chocolate Dipper Relationship Specialty [place] [address] [place] [address] PCP - General Family Medicine 10/05/10 Edenislon Townsend OD [address] [place] [address] Consulting Optometry 12/07/17 Cone Chocolate Dipper Relationship Specialty [place] [address] [place] [address] PCP - General Family Medicine 10/05/10 Edenilson Townsend OD [address] [place] [address] Consulting Optometry 12/07/17 Cone Chocolate Dipper Relationship Specialty [place] [address] [place] [address] PCP - General Family Medicine 10/05/10 Edenilson Townsend OD [address] [place] [address] Consulting Optometry 12/07/17 Cone Chocolate Dipper Relationship Specialty [place] [address] [place] [address] PCP - General Family Medicine 10/05/10 Edenilson Townsend OD [address] [place] [address] Consulting Optometry 12/07/17 Cone Chocolate Dipper Relationship Specialty [place] [address] [place] [address] PCP - General Family Medicine 10/05/10 Edenilson Townsend OD [address] [place] [address] Consulting Optometry 12/07/17 Cone Chocolate Dipper Relationship Specialty [place] [address] [place] [address] PCP - General Family Medicine 10/05/10 Edenilson Townsend, OD [address] [facility] [place] [address] Consulting Optometry 12/07/17 Cone Chocolate Dipper Relationship Specialty [place] [address] [place] [address] PCP - General Family Medicine 10/05/10 Edenilson Townsend, OD [address] [place] [address] Consulting Optometry 12/07/17 Cinthia Ponce BROADCAST TECHNICIAN.LICENSED MARRIAGE AND FAMILY THERAPIST [address] [place] [address] Glue Machine Operator Family Medicine 10/21/24 Willie Kuar APRN.LICENSED MARRIAGE AND FAMILY THERAPIST [address] [place] [address] Glue Machine Operator Family Medicine 10/21/24 Cone Chocolate Dipper Relationship Specialty [place] [address] [place] [address] PCP - General Family Medicine 10/05/10 Edenilson Townsend, OD [address] [place] [address] Consulting Optometry 12/07/17 Cinthia Ponce BROADCAST TECHNICIAN.LICENSED MARRIAGE AND FAMILY THERAPIST [address] [place] [address] Glue Machine Operator Family Medicine 10/21/24 Willie Kaur APRN.LICENSED MARRIAGE AND FAMILY THERAPIST [address] [place] [address] Glue Machine Operator Family Medicine 10/21/24 Cone Chocolate Dipper Relationship Specialty [place] [address] [place] [address] PCP - General Family Medicine 10/05/10 Edenilson Townsend OD [address] [place] [address] Consulting Optometry 12/07/17 Cinthia Ponce BROADCAST TECHNICIAN.LICENSED MARRIAGE AND FAMILY THERAPIST [address] [place] [address] Glue Machine Operator Family Medicine 10/21/24 Willie Kaur BROADCAST TECHNICIAN.LICENSED MARRIAGE AND FAMILY THERAPIST [address] [facility] [place] [address] Glue Machine Operator Family [facility] 10/21/24 Cone Chocolate Dipper Relationship Specialty [place] [address] [place] [address] PCP - General Family Medicine 10/05/10 Edenilson Townsend OD [address] [place] [address] Consulting Optometry 12/07/17 Cinthia Ponce BROADCAST TECHNICIAN.LICENSED MARRIAGE AND FAMILY THERAPIST [address] [place] [address] Glue Machine Operator Family Medicine 10/21/24 Willie Kaur, BROADCAST TECHNICIAN.LICENSED MARRIAGE AND FAMILY THERAPIST [address] [place] [address] Glue Machine Operator [facility] 10/21/24 Cone Chocolate Dipper Relationship Specialty [place] [address] [place] [address] PCP - General Family Medicine 10/05/10 Edenilson Townsend, OD [address] [place] [address] Consulting Optometry 12/07/17 Cinthia Ponce, BROADCAST TECHNICIAN.LICENSED MARRIAGE AND FAMILY THERAPIST [address] [place] [address] Glue Machine Operator [facility] 10/21/24 Willie Kaur, BROADCAST TECHNICIAN.LICENSED MARRIAGE AND FAMILY THERAPIST [address] [place] [address] [facility] Cone Chocolate Dipper Relationship Specialty [place] [address] [place] [address] PCP - General Family Medicine 10/05/10 Edenilson Townsend, OD [address] [place] [address] Consulting Optometry 12/07/17 Cinthia Ponce, BROADCAST TECHNICIAN.LICENSED MARRIAGE AND FAMILY THERAPIST [address] [place] [address] Glue Machine Operator Family Medicine 10/21/24 Willie Kaur BROADCAST TECHNICIAN.LICENSED MARRIAGE AND FAMILY THERAPIST [address] [place] [address] Glue Machine Operator Family Medicine 10/21/24 Cone Chocolate Dipper Relationship Specialty [place] [address] [place] [address] PCP - General Family Medicine 10/05/10 Edenilson Townsend, CHETNA [address] [place] [address] Consulting Optometry 12/07/17 Cinthia Ponce, BROADCAST TECHNICIAN.LICENSED MARRIAGE AND FAMILY THERAPIST [address] [place] [address] Glue Machine Operator Family Medicine 10/21/24 Willie Kaur, BROADCAST TECHNICIAN.LICENSED MARRIAGE AND FAMILY THERAPIST [address] [place] [address] Glue Machine Operator Family Medicine 10/21/24 Cone Chocolate Dipper Relationship Specialty Start [place] [address] [place] [address] PCP - General Family Medicine 10/05/10 Edenilson Townsend, CHETNA [address] [place] [address] Consulting Optometry 12/07/17 Cinthia Ponce, BROADCAST TECHNICIAN.LICENSED MARRIAGE AND FAMILY THERAPIST [address] [place] [address] Glue Machine Operator Family Medicine 10/21/24 Willie Kaur, BROADCAST TECHNICIAN.LICENSED MARRIAGE AND FAMILY THERAPIST [address] [place] [address] Glue Machine Operator Family Medicine 10/21/24 Cone Chocolate Dipper Relationship Specialty Start [place] [address] [place] [address] PCP - General Family Medicine 10/05/10 Edenilson Townsend, OD [address] [place] [address] Consulting Optometry 12/07/17 Cinthia Ponce BROADCAST TECHNICIAN.LICENSED MARRIAGE AND FAMILY THERAPIST [address] [place] [address] Glue Machine Operator Family Medicine 10/21/24 Willie Kaur BROADCAST TECHNICIAN.LICENSED MARRIAGE AND FAMILY THERAPIST [address] [place] [address] Glue Machine Operator Family Medicine 10/21/24 Cone Chocolate Dipper Relationship Specialty Start [place] [address] [place] [address] PCP - General Family Medicine 10/05/10 Edenilson Townsend, OD [address] [place] [address] Consulting Optometry 12/07/17 Cinthia Ponce, BROADCAST TECHNICIAN.LICENSED MARRIAGE AND FAMILY THERAPIST [address] [place] [address] Glue Machine Operator Family Medicine 10/21/24 Willie Kaur BROADCAST TECHNICIAN.LICENSED MARRIAGE AND FAMILY THERAPIST [address] [place] [address] Glue Machine Operator Family Medicine 10/21/24 Cone Chocolate Dipper Relationship Specialty Start [place] [address] [place] [address] PCP - General Family Medicine 10/05/10 Edenilson Townsend, CHETNA [address] [place] [address] Consulting Optometry 12/07/17 Cinthia Ponce, BROADCAST TECHNICIAN.LICENSED MARRIAGE AND FAMILY THERAPIST [address] [place] [address] Glue Machine Operator Family Medicine 10/21/24 Willie Kaur, BROADCAST TECHNICIAN.LICENSED MARRIAGE AND FAMILY THERAPIST [address] [place] [address] Glue Machine Operator Family Medicine 10/21/24 Cone Chocolate Dipper Relationship Specialty Start [place] [address] [place] [address] PCP - General Family Medicine 10/05/10 Edenilson Townsend, CHETNA [address] [place] [address] Consulting Optometry 12/07/17 Cinthia Ponce, BROADCAST TECHNICIAN.LICENSED MARRIAGE AND FAMILY THERAPIST [address] [place] [address] Glue Machine Operator Family Medicine 10/21/24 Willie Kaur, BROADCAST TECHNICIAN.LICENSED MARRIAGE AND FAMILY THERAPIST [address] [place] [address] Glue Machine Operator Family Medicine 10/21/24 Cone Chocolate Dipper Relationship Specialty Start [place] [address] [place] [address] PCP - General Family Medicine 10/05/10 Edenilson Townsend, OD [address] [place] [address] Consulting Optometry 12/07/17 Cinthia Ponce, BROADCAST TECHNICIAN.LICENSED MARRIAGE AND FAMILY THERAPIST [address] [place] [address] Glue Machine Operator Family Medicine 10/21/24 Willie Kaur, BROADCAST TECHNICIAN.LICENSED MARRIAGE AND FAMILY THERAPIST [address] [place] [address] Glue Machine Operator Family Medicine 10/21/24 Cone Chocolate Dipper Relationship Specialty Start [place] [address] [place] [address] PCP - General Family Medicine 10/05/10 Edenilson Townsend OD [address] [place] [address] Consulting Optometry 12/07/17 Cinthia Ponce, BROADCAST TECHNICIAN.LICENSED MARRIAGE AND FAMILY THERAPIST [address] [place] [address] Glue Machine Operator Family Medicine 10/21/24 Willie Kaur, BROADCAST TECHNICIAN.LICENSED MARRIAGE AND FAMILY THERAPIST [address] [place] [address] Glue Machine Operator Family Medicine 10/21/24 Cone Chocolate Dipper Relationship Specialty Start [place] [address] [place] [address] PCP - General Family Medicine 10/05/10 Edenilson Townsend OD [address] [place] [address] Consulting Optometry 12/07/17 Cinthia Ponce, BROADCAST TECHNICIAN.LICENSED MARRIAGE AND FAMILY THERAPIST [address] [place] [address] Glue Machine Operator Family Medicine 10/21/24 Willie Kaur, BROADCAST TECHNICIAN.LICENSED MARRIAGE AND FAMILY THERAPIST [address] [place] [address] Glue Machine Operator Family Medicine 10/21/24 Cone Chocolate Dipper Relationship Specialty Start [place] [address] [place] [address] PCP - General Family Medicine 10/05/10 Edenilson Townsend OD [address] [place] [address] Consulting Optometry 12/07/17 Cinthia Ponce, BROADCAST TECHNICIAN.LICENSED MARRIAGE AND FAMILY THERAPIST [address] [place] [address] Glue Machine Operator Family Medicine 10/21/24 Willie Kaur, BROADCAST TECHNICIAN.LICENSED MARRIAGE AND FAMILY THERAPIST [address] [place] [address] Glue Machine Operator Family Medicine 10/21/24 Cone Chocolate Dipper Relationship Specialty Start [place] [address] [place] [address] PCP - General Family Medicine 10/05/10 Edenilson Townsend OD [address] [place] [address] Consulting Optometry 12/07/17 Cinthia Ponce BROADCAST TECHNICIAN.LICENSED MARRIAGE AND FAMILY THERAPIST [address] [place] [address] Glue Machine Operator Family Medicine 10/21/24 Willie Kaur APRN.LICENSED MARRIAGE AND FAMILY THERAPIST [address] [place] [address] Glue Machine Operator Family Medicine 10/21/24 Cone Chocolate Dipper Relationship Specialty Start [place] [address] [place] [address] PCP - General Family Medicine 10/05/10 Edenilson Townsend, CHETNA [address] [place] [address] Consulting Optometry 12/07/17 Cinthia Ponce BROADCAST TECHNICIAN.LICENSED MARRIAGE AND FAMILY THERAPIST [address] [place] [address] Glue Machine Operator Family Medicine 10/21/24 Willie Kaur BROADCAST TECHNICIAN.LICENSED MARRIAGE AND FAMILY THERAPIST [address] [address] [facility] [place] [address] Glue Machine Operator Family [facility] 10/21/24 Cone Chocolate Dipper Relationship Specialty Start [place] [address] [place] [address] PCP - General Family Medicine 10/05/10 Edenilson Townsend, OD [address] [facility] [address] Consulting Optometry 12/07/17 Cinthia Ponce BROADCAST TECHNICIAN.LICENSED MARRIAGE AND FAMILY THERAPIST [address] [place] [address] Glue Machine Operator Family Medicine 10/21/24 Willie Kaur, BROADCAST TECHNICIAN.LICENSED MARRIAGE AND FAMILY THERAPIST [address] [place] [address] Glue Machine Operator Family Medicine 10/21/24 Cone Chocolate Dipper Relationship Specialty Start [place] [address] [place] [address] PCP - General Family Medicine 10/05/10 Edenilson Townsend OD [address] [place] [address] Consulting Optometry 12/07/17 Cinthia Ponce, BROADCAST TECHNICIAN.LICENSED MARRIAGE AND FAMILY THERAPIST [address] [place] [address] Glue Machine Operator Family [facility] 10/21/24 Willie Kaur, BROADCAST TECHNICIAN.LICENSED MARRIAGE AND FAMILY THERAPIST [address] [place] [address] Glue Machine Operator Family [facility] 10/21/24 Team Status: Active Member Role [...] Provider Active S tart: February 04, 2025 Cone Chocolate Dipper Relationship Specialty [place] [address] [place] [address] PCP - General Family Medicine 10/05/10 Edenilson Townsend OD [address] [place] [address] Consulting Optometry 12/07/17 Cinthia Ponce APRN.LICENSED MARRIAGE AND FAMILY THERAPIST [address] [place] [address] Glue Machine Operator Family Medicine 10/21/24 Willie Kaur APRN.LICENSED MARRIAGE AND FAMILY THERAPIST [address] [place] [address] Glue Machine Operator Family [facility] 10/21/24 Team Status: Inactive Member Role [...] Status: Active Member Role Status Dates Mario Aubree RODAS MD Attending Provider Active S tart: April 01, 2025 Cone Chocolate Dipper Relationship Specialty Start [place] [address] [place] [address] PCP - General Family [facility] 10/05/10 Edenilson Townsend OD [address] [place] [address] Consulting Optometry 12/07/17 Willie Kaur, BROADCAST TECHNICIAN.LICENSED MARRIAGE AND FAMILY THERAPIST [address] [place] [address] [facility] 10/21/24 Cone Chocolate Dipper Relationship Specialty [place] [address] [place] [address] PCP - [facility] 10/05/10 Edenilson Townsend OD [address] [place] [address] Consulting Optometry 12/07/17 Fabrizio, Willie, BROADCAST TECHNICIAN.LICENSED MARRIAGE AND FAMILY THERAPIST [address] [place] [address] [facility] 10/21/24 Goals (unrecognized section and content) Goals [...] BE BASED ON THE PRIMARY CLINICAL RECORDS. [facility]. provides no warranty or guarantee of the accuracy or completeness of information in this document.
== END ==
LOC: OLS.ACH 05:00
PROVIDERS: Visit Provider Internal Medicine
DX: E11.65 Type 2 diabetes mellitus with hyperglycemia (principal)
CPT/HCPCS: 36415; 83036

== ENCOUNTER → 2025-06-20 02:00 | Outpatient (REF) | payer MEDICARE, SELFPAY | LOC: OLS.ACH 02:00 | PROVIDERS: Visit Provider Internal Medicine | DX: R19.7 Diarrhea, unspecified (principal) | CPT/HCPCS: 87493 ==

== ENCOUNTER → 2025-06-24 04:00 | Outpatient (REF) | payer MEDICARE, SELFPAY ==
--- OUTSIDE RECORDS SUMMARY | 2025-06-24 04:12 | XMS RPT_ITS | CCD ---
Author Organization [facility] ion Partnership [facility] Care Team Providers Care Lithographic Press Operator Name Role Phone Migdalia Cramer MD Primary Care Provider Edenilson Townsend Unavailable [phone] Sky [facility] Unavailable Katia Farooq RN Unavailable UnavailMigdalia Matute MD Primary Care Provider Edenilson Townsend Unavailable [phone] Migdalia Cramer MD Primary Care Provider Edenilson Townsend Unavailable [phone] Lien Hankins RN Unavailable Edenilson Townsend OD Unavailable [phone] Migdalia Cramer MD Primary Care Provider Kris ENVIRONMENT COORDINATOR.Cinthia JUAN Unavailable [facility] ENVIRONMENT COORDINATOR.Willie JUAN Unavailable [phone] Aubree HODGE, Mario Attending Provider Unavailable [...] Primary Care Unavailable CINTHIA REDD Attending Unavailable JINA CASTILLO DANIEL Referring Unavailable PROVIDER, UNKNOWN Primary Care Unavailable ELMA THOMPSON Attending Unavailable Aubree HODGE, Mario Attending Provider Unavailable Aubree HODGE, Mario Referring Provider Unavailable CRAMER, MIGDALIA D Primary Care Unavailable TYESHA SINGLETON Attending Unavailable CRAMER, MIGDALIA D Primary Care Unavailable MITSCH, WILLIE Referring Unavailable CRAMER, MIGDALIA D Primary Care Unavailable MITSCH, WILLIE Referring Unavailable CRAMER, MIGDALIA D Primary Care Unavailable CRAMER, MIGDALIA D Referring Unavailable OSCAR, GRUPO Attending Unavailable CRAMER, MIGDALIA D Primary Care Unavailable CRAMER, MIGDALIA D Attending Unavailable CRAMER, MIGDALIA D Primary Care Unavailable OSCAR, GRUPO Referring Unavailable CRAMER, MIGDALIA D Primary Care Unavailable DORITASIMONE HORAN Referring Unavailable CRAMER, MIGDALIA D Primary Care Unavailable MARIUSZ ROMO Attending Unavailable CRAMER, MIGDALIA D Primary Care Unavailable DORITA, SIMONE Referring Unavailable CRAMER, MIGDALIA D Primary Care Unavailable OSCAR, GRUPO Referring Unavailable MARSHES SIDING, MIGDALIA D Primary Care Unavailable OSCAR, GRUPO Referring Unavailable CRAMER, MIGDALIA D Primary Care Unavailable DORITA, SIMONE Referring Unavailable CRAMER, MIGDALIA D Primary Care Unavailable OSCAR, GRUPO Referring Unavailable SIMONE KEVIN Attending Unavailable CRAMER, MIGDALIA D Primary Care Unavailable AB BENSON Attending Unavailable CRAMER, MIGDALIA D Primary Care Unavailable SELF Referring Unavailable SIMONE KEVIN Attending Unavailable CRAMER, MIGDALIA D Primary Care Unavailable DORITA, SIMONE Referring Unavailable CRAMER, MIGDALIA D Primary Care Unavailable OSCAR, GRUPO Referring Unavailable CRAMER, MIGDALIA D Primary Care Unavailable OSCAR, GRUPO Attending Unavailable CRAMER, MIGDALIA D Primary Care Unavailable CRAMER, MIGDALIA D Attending Unavailable CRAMER, MIGDALIA D Primary Care Unavailable CRAMER, MIGDALIA D Attending Unavailable MARIUSZ ROMO Referring Unavailable Deperro OLS, Mario Attending Unavailable [...] Attending Unavailable Deperro OLS, Mario Attending Unavailable Medications Current Medications Medication [...] TAKE 1 TABLET BY IWONA ONCE DAILY ascorbic acid 500 mg oral [...] Comment on above: Take 1 capsule by [facility] once daily for 3 doses. colchicine [...] needed. docusate sodium 50 mg / sennosides, half-way 8.6 mg oral tablet (11 sources) take [...] on above: Take 1 tablet by iwona twice daily with meals. TAKE 1 TABLET BY IW[facility] TWICE DAILY WITH MEALS Take 1 tablet by iwona twice daily with meals for 7 days. Take 1 tablet by iwona th two times a day with meals for 7 days. Take 1 tablet by iwona two times a day with meals. pantoprazole 40 mg delayed release oral tablet (17 sources) Proton Pump Inhibitor Start: 5 take 1 tablet by mouth twice daily [...] (20 sources) Serotonin Reuptake Inhibitor Start: End: 4 take 1 tablet by mouth [...] 1 TABLET BY IWONA TH ONCE DAILY lansoprazole 30 mg delayed release oral capsule (20 sources) Proton Pump Inhibitor Start : 11-28 End: 07-12 take 1 capsule by mouth once daily lansoprazole (PREVACID) 30 mg capsule Indications: Gastroesophageal reflux disease without esophagitis Take 1 capsule by mouth once daily. 90 capsule 3 02/28/2024 Suspended Comment on above: Take 1 capsule by mo [facility] once daily. TAKE 1 CAPSULE BY MO [facility] ONCE DAILY melatonin 3 mg oral [...] long-term current use of insulin ([facility]) Take 1 tablet by mouth once daily. 90 tablet 3 04/26/2024 04/26/2025 Suspended Start: 06-18-2022 pioglitazone ( ACTOS) 45 mg tablet Indications: Type 2 diabetes mellitus with stage 3 chronic kidney disease, without long-term current use of insulin ([facility]) TAKE 1 TABLET BY MOUTH ONCE DAILY 90 tablet 3 06/18/2022 Active Start: 08-19-2020 End: 07-14-2021 pioglitazone (ACTOS) 45 mg t ablet Indications: Type 2 diabetes mellitus with stage 3 chronic kidney disease, without long-term current use of insulin ([facility]) TAKE 1 TABLET BY MOUTH ONCE DAILY 90 tablet 3 07/14/2021 Active Comment on above: TAKE 1 TABLET BY I[facility] ONCE DAILY polyethylene glycol 3350 39795 mg powder for oral solution (20 sources) [...] Test Name Value Interpretation Reference Range Facility CDIFF (PCR)on 06-20-2025 CDIFF Pending 027 [id number] NAP1-B1 Presumptive Negative *for epidemiolologic???use C. Diff PCR Negative- No toxigenic C. Diff Detected Normal [facility] Comment on above: Performed By: #### L 503.6030, L503.0105, L506.0250, L500.4050, L100.0100, L101.9900 #### [facility] [address] [place], [place], [id number] Hemoglobin A1con 06-04-2025 HbA1c (Bld) [Mass fraction] 7.2 % High <=5.6 [facility] Comment on above: Order Comment: 107.1 Result Comment: Norm al < 5.7 % Prediabetic 5.7 - 6.4 % Diabetic >or= 6.5 % Please note range changes. Performed By: #### L 500.4050, L101.9900, L100.0500 #### [facility] [address] [place], [place], [id number] [facility] Telephone (Ceba[employer]) YUSUF MEDINA ([id number]) 1935 F [place] Date Time Provider Department 05/28/25 TYESHA SINGLETON During your visit today, we recorded the following information about you: Lidia Carbajal LPN 05/28/2025 2:12 PM Signed Received results of labs done on 05/27/2025 from [facility] (abnormal results in bold): CRP <3.00 0.0-3.0 sed rate 14 0-30 Report sent for scanning. Allergies As of Date: 05/28/2025 (No Known Allergies) Date Reviewed: 02/13/2025 Reviewed by: Margie Steiner RN - Fully Assessed Reason for Visit: [...] patient by: CAREGIVER José Miguel Swanson [facility] Problem List As Of Date 05/28/2025 Noted [...] 05/11/2016 Hi (more content not included)... Normal [facility] CRPon 05-27-2025 C-REACTIVE PROT < 3.00 Normal 0.0-3.0 [facility] Comment on above: Order Comment: 107.1 Performed By: #### L 500.4050, L101.9900, L100.0500 #### [facility] [address] [place], [address] Erythrocyte Sed Rateon 05-27 SED RATE 14 mm/hr Normal 0-30 [facility] Comment on above: Order Comment: 107.1 Performed By: #### L 500.4050, L101.9900, L100.0500 #### [facility] [address] [place], [address] CNPNon [facility] YUSUF MEDINA ([id number]) 1935 F [place] Date Time Provider Department 05/01/25 TYESHA SINGLETON During your visit today, we recorded the following information about you: Ketty Remy LPN 05/01/2025 4:38 PM Signed Received results of labs done on [facility] from 04/29/25 (abnormal results in bold): CRP 21.0 sed rate 32 Report sent for scanning. Tyesha Singleton MD 05/02/2025 8:14 AM Signed Please ask her to come in for follow up with me. Also make sure she is taking the colchicine and mobic as prescribed. MD Solomon Pruett Trena, LPN 05/02/2025 10:30 AM Signed Called and spoke to [id number], Demetria. Patient is in a long-term care facility. Called facility [phone], but unable to speak to nurse as she is with a patient. , fax sent to verify medications and request a call for appointment. Allergies As of Date: 05/01/2025 (No Known Allergies) Date Reviewed: 02/13/2025 Reviewed by: Margie Steiner, LIT - Fully Assessed Prescriptions as of 05/02/2025 [...] patient by: CAREGIVER José Miguel Swanson [facility] Problem List As Of Date 05/01/2025 Noted [...] 10/31/2010 09/23/2014 (more content not included)... Normal [facility] CRPon 04-29-2025 C-REACTIVE PROT 21.00 mg/L High 0.0-3.0 [facility] Comment on above: Order Comment: 107.1 Performed By: #### L 503.6030, L503.0105, L506.0250, L500.4050, L100.0100, L101.9900 #### [facility] [address] [place], [address] Erythrocyte Sed Rateon 04-29 SED RATE 32 mm/hr High 0-30 [facility] Comment on above: Order Comment: 107.1 Performed By: #### L 500.4050, L101.9900, L100.0500 #### [facility] [address] [place], [address] Urine Cultureon 04-28-2025 URC 107-1 #2 Below infection level. PROBABLE PROTEUS SPECIES Escherichia coli [place] Count 11,000-25,000 Gram negative anabell Gram negative [...] TMP SMX Islt HEMANT <=[address] [facility] Comment on above: Performed By: #### L 500.4050, L101.9900, L100.0500 #### [facility] [address] [place], [address] Urinalysis, Completeon 04-26 CAST,FINE GRAN 0-5 SEEN Normal 0-5 [facility] Comment on above: Order Comment: 107.1 Performed By: #### L 500.4050, L101.9900, L100.0500 #### [facility] [address] [place] [place], [address] CAST,HYALINE 5-10 SEEN Normal 0-5 [facility] Comment on above: Order Comment: 107.1 Performed By: #### L 500.4050, L101.9900, L100.0500 #### [facility] [address] [place], [address] BACTERIA 1+ /hpf Normal None Seen [facility] Comment on above: Order Comment: 107.1 Performed By: #### L 500.4050, L101.9900, L100.0500 #### [facility] [address] [place], [address] EPI,SQUAMOUS 5-10 SEEN Normal 5-10 [facility] Comment on above: Order Comment: 107.1 Performed By: #### L 500.4050, L101.9900, L100.0500 #### [facility] [address] [place], [address] WBC 0-5 SEEN Normal 0-5 [facility] Comment on above: Order Comment: 107.1 Performed By: #### L 500.4050, L101.9900, L100.0500 #### [facility] [address] [place], [address] Mucus Ql (Urine sed) 0 SEEN Normal [facility] Comment on above: Order Comment: 107.1 Performed By: #### L 500.4050, L101.9900, L100.0500 #### [facility] [address] [place], [address] RBC 0 SEEN Normal 0-5 [facility] Comment on above: Order Comment: 107.1 Performed By: #### L 500.4050, L101.9900, L100.0500 #### [facility] [address] [place], [address] Urine Cultureon 04-12-2025 URC 107-1 #2 Probable Proteus species. Below infection level. Escherichia coli [place] Count 50,000-80,000 Gram negative anabell Gram negative [...] TMP SMX Islt HEMANT <=[address] [facility] Comment on above: Performed By: #### L 500.4050, L101.9900, L100.0500 #### [facility] [address] [place], [address] Urinalysis, Completeon 04-11 CAST,HYALINE 0-5 SEEN Normal 0-5 [facility] Comment on above: Order Comment: 107.1 Performed By: #### L 500.4050, L101.9900, L100.0500 #### [facility] [address] [place], [address] BACTERIA 1+ /hpf Normal None Seen [facility] Comment on above: Order Comment: 107.1 Performed By: #### L 500.4050, L101.9900, L100.0500 #### [facility] [address] [place], [address] EPI,SQUAMOUS 0-5 SEEN Normal 5-10 [facility] Comment on above: Order Comment: 107.1 Performed By: #### L 500.4050, L101.9900, L100.0500 #### [facility] [address] [place], [address] RBC 0-5 SEEN Normal 0-5 [facility] Comment on above: Order Comment: 107.1 Performed By: #### L 500.4050, L101.9900, L100.0500 #### [facility] [address] [place], [address] WBC 5-10 SEEN Normal 0-5 [facility] Comment on above: Order Comment: 107.1 Performed By: #### L 500.4050, L101.9900, L100.0500 #### [facility] [address] [place], [address] Mucus Ql (Urine sed) 0 SEEN Normal [facility] Comment on above: Order Comment: 107.1 Performed By: #### L 500.4050, L101.9900, L100.0500 #### [facility] [address] [place], [address] Bilirubin Test strip Ql (U)O rdered By: Mario Mak on 04-10-2025 Bilirubin Ql (U) Negative Negative [facility] Hyaline casts LM.LPF (Urine sed) [#/Area]Ordered By: Mario Mak on 04-10-2025 Hyaline casts (Urine sed) [#/Area] 0 /[LPF] 0-5 [facility] Ketones Test strip Ql (U)Ord ered By: Mario Mak on 04-10-2025 Ketones Ql (U) Negative Negative [facility] Microscopic analysis of urin e for red blood cells (RBC)Ordered By: Mario Mak on 04-10-2025 Microscopic analysis of urine for red blood cells (RBC) 0-5 SEEN /hpf 0-5 [facility] Mucus LM Ql (Urine sed)Order ed By: Mario Mak on 04-10-2025 Mucus Ql (Urine sed) 0 SEEN /hpf [facility] Nitrite Test strip Ql (U)Ord ered By: Mario Mak on 04-10-2025 Nitrite Ql (U) Negative Negative [facility] Protein Test strip Ql (U)Ord ered By: Mario Mak on 04-10-2025 Protein Ql (U) 100 mg/dl High Negative [facility] Squamous epithelial cells de tection in urine sediment by light microscopyOrdered By: Mario Mak on 04-10-2025 Epithelial cells.squamous LM Ql (Urine sed) 0-5 SEEN /hpf 5-10 [facility] Urine clarityOrdered By: Shwetha Mak on 04-10-2025 Clarity (U) Clear Clear [facility] Urine color determinationOrd ered By: Mario Mak on 04-10-2025 Color (U) Yellow Yellow [facility] Urine cultureOrdered By: Shwetha Mak on 04-10-2025 Bacteria identified Cx Nom (U) Escherichia coli Abnormal [facility] Bacteria identified Cx Nom (U) Negative Abnormal [facility] Urine glucose detectionOrder ed By: Mario Mak on 04-10-2025 Glucose Ql (U) Normal mg/dl Normal [facility] Urine leukocyte esterase det ection by dipstickOrdered By: Mario Mak on 04-10-2025 Leukocyte esterase Test strip Ql (U) 100 /ul High Negative [facility] Urine pHOrdered By: Mario reece on 04-10-2025 pH (U) 6.0 [pH] 5.0 - 8.0 [facility] Urine sediment bacteria coun t by microscopy (number/high power field)Ordered By: Mario Mak on 04-10-2025 Bacteria LM.HPF (Urine sed) [#/Area] 1 /[HPF] None Seen [facility] Urine specific gravity measu rementOrdered By: Mario Mak on 04-10-2025 Specific gravity (U) [Rel density] 1.015 1.002-1.030 [facility] Urine urobilinogen measureme ntOrdered By: Mario Mak on 04-10-2025 Urobilinogen Ql (U) Normal mg/dl Normal [facility] White blood cell countOrdere d By: Mario Mak on 04-10-2025 White blood cell count 5-10 SEEN /hpf 0-5 [facility] CRPon 04-01-2025 C-REACTIVE PROT < 3.00 Normal 0.0-3.0 [facility] Comment on above: Order Comment: 107.1 Performed By: #### L 503.6030, L503.0105, L506.0250, L500.4050, L100.0100, L101.9900 #### [facility] [address] [place], [address] Erythrocyte Sed Rateon 04-01 SED RATE 14 mm/hr Normal 0-30 [facility] Comment on above: Order Comment: 107.1 Performed By: #### L 503.6030, L503.0105, L506.0250, L500.4050, L100.0100, L101.9900 #### [facility] [address] [place], [place], [id number] Erythrocyte sedimentation ra teOrdered By: Mario Mak on 04-01-2025 ESR (Bld) [Velocity] 14 mm/h 0-30 [facility] Serum or plasma C reactive p rotein measurement (mass/volume)Ordered By: Mario Mak on 04-01-2025 CRP [Mass/Vol] mg/L 0.0-3.0 [facility] Hemoglobin A1c percentageOrd ered By: Mario Mak on 03-12-2025 HbA1c (Bld) [Mass fraction] 7.4 % High <=5.6 [facility] Comment on above: Normal < 5.7 % Predi abetic 5.7 - 6.4 % Diabetic >or= 6.5 % Please note range changes. Order Comment: 107.1 Result Comment: Norm al < 5.7 % Prediabetic 5.7 - 6.4 % Diabetic >or= 6.5 % Please note range changes. Performed By: #### L 500.4050, L101.9900, L100.0500 #### [facility] [address] [place], [place], [id number] CRPon 03-04-2025 C-REACTIVE PROT < 3.00 Normal 0.0-3.0 [facility] Comment on above: Order Comment: 107.1 Performed By: #### L 500.4050, L101.9900, L100.0500 #### [facility] [address] [place], [place], [address] Erythrocyte Sed Rateon 03-04 SED RATE 12 mm/hr Normal 0-30 [facility] Comment on above: Order Comment: 107.1 Performed By: #### L 501.6710, L101.9900 #### [facility] [address] [place], [place], [address] Erythrocyte sedimentation ra teOrdered By: Mario Mak on 03-04-2025 ESR (Bld) [Velocity] 12 mm/h 0-30 [facility] Serum or plasma C reactive p rotein measurement (mass/volume)Ordered By: Mario Mak on 03-04-2025 CRP [Mass/Vol] mg/L 0.0-3.0 [facility] CNOVon 02-13-2025 CNOV Normal [facility] CNPNon 02-11-2025 [facility] Telephone (MARJORIE) YUSUF MEDINA ([id number]) 1935 [facility] Date Time Provider Department 02/11/25 TYESHA SINGLETON During your visit today, we recorded the following information about you: Lidia Carbajal LPN 02/11/2025 1:00 PM Signed Received results of labs done on 02/04/2025 from [facility] (abnormal results in bold): sed [...] patient by: CAREGIVER José Miguel Swanson [facility] Problem List As Of Date 02/11/2025 Noted [...] arthritis [M16.10] (more content not included)... Normal [facility] CRPon 02-04-2025 C-REACTIVE PROT < 3.00 Normal 0.0-3.0 [facility] Comment on above: Order Comment: 107.1 Performed By: #### L 500.4050, L101.9900, L100.0500 #### [facility] [address] [place], [place], [id number] CRP [Mass/Vol]Ordered By: Moreno on 02-04-2025 C-Reactive Protein Extended Range < 3.00 mg/L 0.0-3.0 [facility] Erythrocyte Sed Rateon 02-04 SED RATE 23 mm/hr Normal 0-30 [facility] Comment on above: Order Comment: 107.1 Performed By: #### L 500.4050, L101.9900, L100.0500 #### [facility] [address] [place], [place], [address] Erythrocyte sedimentation ra teOrdered By: Mario Mak on 02-04-2025 ESR (Bld) [Velocity] 23 mm/h 0-30 [facility] Serum or plasma C reactive p rotein measurement (mass/volume)Ordered By: Mario Mak on 02-04-2025 CRP [Mass/Vol] mg/L 0.0-3.0 [facility] CNOVon 01-16-2025 CNOV Normal [facility] Absolute lymphocyte countOrd ered By: Mario Mak on 01-15-2025 Lymphocytes Auto (Unsp spec) [#/Vol] 1.16 10*3/uL 0.83-4.51 [facility] Absolute neutrophil countOrd ered By: Mario Mak on 01-15-2025 Neutrophils (Bld) [#/Vol] 5.9 10*3/uL 2.0-7.7 [facility] Anion gap in Serum or Plasma Ordered By: Mario Mak on 01-15-2025 Anion gap [Moles/Vol] 12 mmol/L 5-15 [facility] Automated lymphocyte count a s percentage of total leukocytesOrdered By: Mario Mak on 01-15-2025 Lymphocytes/100 WBC Auto (Unsp spec) 14.3 % Low 19-41 [facility] BUN/creatinine ratioOrdered By: Mario Mak on 01-15-2025 Urea nitrogen/Creatinine [Mass ratio] 35.3 mg/mg High 10-20 [facility] Basic Metabolic Profile (BMP )on 01-15-2025 BUN/CRE 35.3 RATIO High 10-20 [facility] Comment on above: Order Comment: 107.1 Performed By: #### L 500.4050, L101.9900, L100.0500 #### [facility] [address] [place], [address] Calcium [Mass/Vol] 9.1 mg/dL Normal 7.6-11.0 [facility] Comment on above: Order Comment: 107.1 Performed By: #### L 500.4050, L101.9900, L100.0500 #### [facility] [address] [place], [address] Chloride [Moles/Vol] 101 mmol/L Normal 98-108 [facility] Comment on above: Order Comment: 107.1 Performed By: #### L 500.4050, L101.9900, L100.0500 #### [facility] [address] [place], [address] CO2 [Moles/Vol] 26.0 mmol/L Normal 21.0-32.0 [facility] Comment on above: Order Comment: 107.1 Performed By: #### L 500.4050, L101.9900, L100.0500 #### [facility] [address] [place], [address] Creatinine [Mass/Vol] 0.76 mg/dL Normal 0.70-1.20 [facility] Comment on above: Order Comment: 107.1 Performed By: #### L 500.4050, L101.9900, L100.0500 #### [facility] [address] [place], [address] GAP 12 Normal 5-15 [facility] Comment on above: Order Comment: 107.1 Performed By: #### L 500.4050, L101.9900, L100.0500 #### [facility] [address] [place], [address] GFR/1.73 sq M.predicted among non-blacks MDRD (S/P/Bld) [Vol rate/Area] 75 mL/min/{1.73_m2} Normal >60 [facility] Comment on above: Order Comment: 107.1 Result Comment: mL/m in/1.73m2 CKD-EPI Creatinine Equation (2020) Performed By: #### L 500.4050, L101.9900, L100.0500 #### [facility] [address] [place], [address] Glucose [Mass/Vol] 108 mg/dL High 70-99 [facility] Comment on above: Order Comment: 107.1 Performed By: #### L 500.4050, L101.9900, L100.0500 #### [facility] [address] [place], [address] Potassium [Moles/Vol] 4.6 mmol/L Normal 3.3-5.1 [facility] Comment on above: Order Comment: 107.1 Performed By: #### L 500.4050, L101.9900, L100.0500 #### [facility] [address] [place], [address] Sodium [Moles/Vol] 139 mmol/L Normal 133-145 [facility] Comment on above: Order Comment: 107.1 Performed By: #### L 500.4050, L101.9900, L100.0500 #### [facility] [address] [place], [address] Urea nitrogen [Mass/Vol] 27 mg/dL High 4-19 [facility] Comment on above: Order Comment: 107.1 Performed By: #### L 500.4050, L101.9900, L100.0500 #### [facility] [address] [place], [address] Basophil percentageOrdered B y: Mario Mak on 01-15-2025 Basophils/100 WBC (Bld) 0.5 % 0-1 [facility] CBC W/Diff, Automatedon Absolute Lymph 1.16 X10 3/uL Normal 0.83-4.51 [facility] Comment on above: Order Comment: 107.1 Performed By: #### L 500.4050, L101.9900, L100.0500 #### [facility] [address] [place], [address] Absolute Neut 5.9 X10 3/uL Normal 2.0-7.7 [facility] Comment on above: Order Comment: 107.1 Performed By: #### L 500.4050, L101.9900, L100.0500 #### [facility] [address] [place], [address] Basophils/100 WBC (Bld) 0.5 % Normal 0-1 [facility] Comment on above: Order Comment: 107.1 Performed By: #### L 500.4050, L101.9900, L100.0500 #### [facility] [address] [place], [address] Eosinophils/100 WBC (Bld) 4.1 % Normal 0-5 [facility] Comment on above: Order Comment: 107.1 Performed By: #### L 500.4050, L101.9900, L100.0500 #### [facility] [address] [place], [address] Erythrocyte distribution width (RBC) [Ratio] 16.0 % High 11.6-14.6 [facility] Comment on above: Order Comment: 107.1 Performed By: #### L 500.4050, L101.9900, L100.0500 #### [facility] [address] [place], [address] Hematocrit (Bld) [Volume fraction] 29.0 % Low 37-47 [facility] Comment on above: Order Comment: 107.1 Performed By: #### L 500.4050, L101.9900, L100.0500 #### [facility] [address] [place], [address] Hemoglobin (Bld) [Mass/Vol] 9.4 g/dL Low 12.0-15.0 [facility] Comment on above: Order Comment: 107.1 Performed By: #### L 500.4050, L101.9900, L100.0500 #### [facility] [address] [place], [address] IG% 1.100 High 0.0-0.9 [facility] Comment on above: Order Comment: 107.1 Result Comment: IG% - Immature Granulocytes (promyelocytes, myelocytes and metamyelocytes) > 1% indicates that a LEFT SHIFT is Present. Performed By: #### L 500.4050, L101.9900, L100.0500 #### [facility] [address] [place], [address] Lymphocytes/100 WBC (Bld) 14.3 % Low 19-41 [facility] Comment on above: Order Comment: 107.1 Performed By: #### L 500.4050, L101.9900, L100.0500 #### [facility] [address] [place], [address] MCH (RBC) [Entitic mass] 29.5 pg Normal 27.0-32.0 [facility] Comment on above: Order Comment: 107.1 Performed By: #### L 500.4050, L101.9900, L100.0500 #### [facility] [address] [place], [address] MCHC (RBC) [Mass/Vol] 32.4 g/dL Normal 32-36 [facility] Comment on above: Order Comment: 107.1 Performed By: #### L 500.4050, L101.9900, L100.0500 #### [facility] [address] [place], [address] MCV (RBC) [Entitic vol] 90.9 fL Normal 81-99 [facility] Comment on above: Order Comment: 107.1 Performed By: #### L 500.4050, L101.9900, L100.0500 #### [facility] [address] [place], [address] Monocytes/100 WBC (Bld) 8.1 % Normal 0-10 [facility] Comment on above: Order Comment: 107.1 Performed By: #### L 500.4050, L101.9900, L100.0500 #### [facility] [address] [place], [address] Neutrophils/100 WBC (Bld) 71.9 % High 47-70 [facility] Comment on above: Order Comment: 107.1 Performed By: #### L 500.4050, L101.9900, L100.0500 #### [facility] [address] [place], [address] Nucleated RBC (Bld) [#/Vol] 0 10*3/uL Normal 0-5 [facility] Comment on above: Order Comment: 107.1 Performed By: #### L 500.4050, L101.9900, L100.0500 #### [facility] [address] [place], [address] Platelet mean volume (Bld) [Entitic vol] 9.4 fL Normal 6.2-12.0 [facility] Comment on above: Order Comment: 107.1 Performed By: #### L 500.4050, L101.9900, L100.0500 #### [facility] [address] [place], [address] Platelets (Bld) [#/Vol] 390 10*3/uL Normal 150-450 [facility] Comment on above: Order Comment: 107.1 Performed By: #### L 500.4050, L101.9900, L100.0500 #### [facility] [address] [place], [address] RBC (Bld) [#/Vol] 3.19 10*6/uL Low 4.2-5.4 [facility] Comment on above: Order Comment: 107.1 Performed By: #### L 500.4050, L101.9900, L100.0500 #### [facility] [address] [place], [address] RDW SD 53.4 fl High 35.1-43.9 [facility] Comment on above: Order Comment: 107.1 Performed By: #### L 500.4050, L101.9900, L100.0500 #### [facility] [address] [place], [address] WBC (Bld) [#/Vol] 8.1 10*3/uL Normal 4.4-11.0 [facility] Comment on above: Order Comment: 107.1 Performed By: #### L 500.4050, L101.9900, L100.0500 #### [facility] [address] [place], [address] Carbon dioxide, total [Moles /volume] in Central venous bloodOrdered By: Mario Mak on 01-15-2025 CO2 [Moles/Vol] 26.0 mmol/L 21.0-32.0 [facility] Chloride assayOrdered By: Moreno on 01-15-2025 Chloride [Moles/Vol] 101 mmol/L 98-108 [facility] Eosinophil percentageOrdered By: Mario Mak on 01-15-2025 Eosinophils/100 WBC (Bld) 4.1 % 0-5 [facility] Erythrocyte distribution wid th (RBC) [Ratio]Ordered By: Mario Mak on 01-15-2025 Erythrocyte distribution width (RBC) [Entitic vol] 53.4 fL High 35.1-43.9 [facility] Erythrocyte distribution wid th ratioOrdered By: Mario Mak on 01-15-2025 Erythrocyte distribution width (RBC) [Ratio] 16.0 % High 11.6-14.6 [facility] Erythrocyte distribution wid th standard deviationOrdered By: Mario Mak on 01-15-2025 Erythrocyte distribution width (RBC) [Ratio] 53.4 fl High 35.1-43.9 [facility] GFR/1.73 sq M.predicted ida g non-blacks MDRD (S/P/Bld) [Vol rate/Area]Ordered By: Mario Mak on 01-15-2025 Estimated GFR (MDRD) Non-Af Amer [address] >60 [facility] Comment on above: mL/min/1.73m2 CKD-EP I Creatinine Equation (2020) Glomerular filtration rate ( GFR) estimation/1.73 sq m using serum, plasma, or whole bOrdered By: Mario Mak on 01-15-2025 GFR/1.73 sq M.predicted among non-blacks MDRD (S/P/Bld) [Vol rate/Area] 75 mL/min/{1.73_m2} >60 [facility] Comment on above: mL/min/1.73m2 CKD-EP I Creatinine Equation (2020) Hematocrit Auto (Bld) [Volum e fraction]Ordered By: Mario Mak on 01-15-2025 Hematocrit (Bld) [Volume fraction] 29.0 % Low 37-47 [facility] Hemoglobin measurementOrdere d By: Mario Mak on 01-15-2025 Hemoglobin (Bld) [Mass/Vol] 9.4 g/dL Low 12.0-15.0 [facility] Immature granulocytes/100 WB C Auto (Bld)Ordered By: Mario Mak on 01-15-2025 Immature granulocytes/100 WBC (Bld) 1.100 % High 0.0-0.9 [facility] Comment on above: IG% - Immature Granu locytes (promyelocytes, myelocytes and metamyelocytes) > 1% indicates that a LEFT SHIFT is Present. Lymphocytes Auto (Unsp spec) [#/Vol]Ordered By: Mario Mak on 01-15-2025 Lymphocytes (Bld) [#/Vol] 1.16 10*3/uL 0.83-4.51 [facility] Lymphocytes/100 WBC Auto (Un sp spec)Ordered By: Mario Mak on 01-15-2025 Lymphocytes/100 WBC (Bld) 14.3 % Low 19-41 [facility] MCV (mean corpuscular volume ) determinationOrdered By: Mario Mak on 01-15-2025 MCV (RBC) [Entitic vol] 90.9 fL 81-99 [facility] Mean corpuscular hemoglobin (MCH) determinationOrdered By: Mario Mka on 01-15-2025 MCH (RBC) [Entitic mass] 29.5 pg 27.0-32.0 [facility] Mean corpuscular hemoglobin concentration (MCHC) determinationOrdered By: Mario Mak on 01-15-2025 MCHC (RBC) [Mass/Vol] 32.4 g/dL 32-36 [facility] Mean platelet volume determi nationOrdered By: Mario Mak on 01-15-2025 Platelet mean volume (Bld) [Entitic vol] 9.4 fL 6.2-12.0 [facility] Monocyte percentageOrdered B y: Mario Mak on 01-15-2025 Monocytes/100 WBC (Bld) 8.1 % 0-10 [facility] Neutrophil percentageOrdered By: Mario Mak on 01-15-2025 Neutrophils/100 WBC (Bld) 71.9 % High 47-70 [facility] Nucleated red blood cell per centageOrdered By: Mario Mak on 01-15-2025 Nucleated RBC/100 WBC (Bld) [Ratio] 0 % 0-5 [facility] Platelet countOrdered By: Moreno on 01-15-2025 Platelets (Bld) [#/Vol] 390 10*3/uL 150-450 [facility] Potassium (Unsp spec) [Mass/ Vol]Ordered By: Mario Mak on 01-15-2025 Potassium [Moles/Vol] 4.6 mmol/L 3.3-5.1 [facility] Potassium measurement (mass/ volume)Ordered By: Mario Mak on 01-15-2025 Potassium (Unsp spec) [Mass/Vol] 4.6 mmol/L 3.3-5.1 [facility] RBC Auto (Bld) [#/Vol]Ordere d By: Mario Mak on 01-15-2025 RBC (Bld) [#/Vol] 3.19 10*6/uL Low 4.2-5.4 [facility] Serum creatinine measurement (mass/volume)Ordered By: Mario Mak on 01-15-2025 Creatinine [Mass/Vol] 0.76 mg/dL 0.70-1.20 [facility] Serum glucose measurement (m ass/volume)Ordered By: Mario Mak on 01-15-2025 Glucose [Mass/Vol] 108 mg/dL High 70-99 [facility] Serum or plasma calcium roma urement (mass/volume)Ordered By: Mario Mak on 01-15-2025 Calcium [Mass/Vol] 9.1 mg/dL 7.6-11.0 [facility] Serum or plasma urea nitroge n measurement (mass/volume)Ordered By: Mario Mak on 01-15-2025 Urea nitrogen [Mass/Vol] 27 mg/dL High 4-19 [facility] Sodium levelOrdered By: Mario Mak on 01-15-2025 Sodium [Moles/Vol] 139 mmol/L 133-145 [facility] White blood cell (WBC) count Ordered By: Mario Mak on 01-15-2025 WBC (Bld) [#/Vol] 8.1 10*3/uL 4.4-11.0 [facility] Absolute lymphocyte countOrd ered By: Mario Mak on 01-07-2025 Lymphocytes Auto (Unsp spec) [#/Vol] 0.98 10*3/uL 0.83-4.51 [facility] Absolute neutrophil countOrd ered By: Mario Mak on 01-07-2025 Neutrophils (Bld) [#/Vol] 5.7 10*3/uL 2.0-7.7 [facility] Albumin to globulin ratioOrd ered By: Mario Mak on 01-07-2025 Albumin/Globulin [Mass ratio] 0.6 {ratio} Low 0.9-2.4 [facility] Automated lymphocyte count a s percentage of total leukocytesOrdered By: Mario Mak on 01-07-2025 Lymphocytes/100 WBC Auto (Unsp spec) 12.6 % Low 19-41 [facility] Basophil percentageOrdered B y: Mario Mak on 01-07-2025 Basophils/100 WBC (Bld) 0.5 % 0-1 [facility] Bilirubin, totalOrdered By: Mario Mak on 01-07-2025 Bilirubin [Mass/Vol] 0.20 mg/dL 0.20-1.00 [facility] Comment on above: For patients on eltr ombopag therapy, use of Dimension [place] TBIL is not recommended. Blood urea nitrogen (BUN)/cr eatinine ratioOrdered By: Mario Mak on 01-07-2025 Urea nitrogen/Creatinine [Mass ratio] 37.0 mg/mg High 10-20 [facility] CBC W/Diff, Automatedon 02-2 -2024 Absolute Lymph 0.98 X10 3/uL Normal 0.83-4.51 [facility] Comment on above: Order Comment: 107.1 Performed By: #### L 500.4050, L101.9900, L100.0500 #### [facility] [address] [place], [address] Absolute Neut 5.7 X10 3/uL Normal 2.0-7.7 [facility] Comment on above: Order Comment: 107.1 Performed By: #### L 500.4050, L101.9900, L100.0500 #### [facility] [address] [place], [address] Basophils/100 WBC (Bld) 0.5 % Normal 0-1 [facility] Comment on above: Order Comment: 107.1 Performed By: #### L 500.4050, L101.9900, L100.0500 #### [facility] [address] [place], [address] Eosinophils/100 WBC (Bld) 3.2 % Normal 0-5 [facility] Comment on above: Order Comment: 107.1 Performed By: #### L 500.4050, L101.9900, L100.0500 #### [facility] [address] [place], [address] Erythrocyte distribution width (RBC) [Ratio] 16.5 % High 11.6-14.6 [facility] Comment on above: Order Comment: 107.1 Performed By: #### L 500.4050, L101.9900, L100.0500 #### [facility] [address] [place], [address] Hematocrit (Bld) [Volume fraction] 28.5 % Low 37-47 [facility] Comment on above: Order Comment: 107.1 Performed By: #### L 500.4050, L101.9900, L100.0500 #### [facility] [address] [place], [address] Hemoglobin (Bld) [Mass/Vol] 8.9 g/dL Low 12.0-15.0 [facility] Comment on above: Order Comment: 107.1 Performed By: #### L 500.4050, L101.9900, L100.0500 #### [facility] [address] [place], [address] IG% 0.600 Normal 0.0-0.9 [facility] Comment on above: Order Comment: 107.1 Result Comment: IG% - Immature Granulocytes (promyelocytes, myelocytes and metamyelocytes) > 1% indicates that a LEFT SHIFT is Present. Performed By: #### L 500.4050, L101.9900, L100.0500 #### [facility] [address] [place], [address] Lymphocytes/100 WBC (Bld) 12.6 % Low 19-41 [facility] Comment on above: Order Comment: 107.1 Performed By: #### L 500.4050, L101.9900, L100.0500 #### [facility] [address] [place], [address] MCH (RBC) [Entitic mass] 28.7 pg Normal 27.0-32.0 [facility] Comment on above: Order Comment: 107.1 Performed By: #### L 500.4050, L101.9900, L100.0500 #### [facility] [address] [place], [address] MCHC (RBC) [Mass/Vol] 31.2 g/dL Low 32-36 [facility] Comment on above: Order Comment: 107.1 Performed By: #### L 500.4050, L101.9900, L100.0500 #### [facility] [address] [place], [address] MCV (RBC) [Entitic vol] 91.9 fL Normal 81-99 [facility] Comment on above: Order Comment: 107.1 Performed By: #### L 500.4050, L101.9900, L100.0500 #### [facility] [address] [place], [address] Monocytes/100 WBC (Bld) 9.9 % Normal 0-10 [facility] Comment on above: Order Comment: 107.1 Performed By: #### L 500.4050, L101.9900, L100.0500 #### [facility] [address] [place], [address] Neutrophils/100 WBC (Bld) 73.2 % High 47-70 [facility] Comment on above: Order Comment: 107.1 Performed By: #### L 500.4050, L101.9900, L100.0500 #### [facility] [address] [place], [address] Nucleated RBC (Bld) [#/Vol] 0 10*3/uL Normal 0-5 [facility] Comment on above: Order Comment: 107.1 Performed By: #### L 500.4050, L101.9900, L100.0500 #### [facility] [address] [place], [address] Platelet mean volume (Bld) [Entitic vol] 9.8 fL Normal 6.2-12.0 [facility] Comment on above: Order Comment: 107.1 Performed By: #### L 500.4050, L101.9900, L100.0500 #### [facility] [address] [place], [address] Platelets (Bld) [#/Vol] 319 10*3/uL Normal 150-450 [facility] Comment on above: Order Comment: 107.1 Performed By: #### L 500.4050, L101.9900, L100.0500 #### [facility] [address] [place], [address] RBC (Bld) [#/Vol] 3.10 10*6/uL Low 4.2-5.4 [facility] Comment on above: Order Comment: 107.1 Performed By: #### L 500.4050, L101.9900, L100.0500 #### [facility] [address] [place], [address] RDW SD 56.5 fl High 35.1-43.9 [facility] Comment on above: Order Comment: 107.1 Performed By: #### L 500.4050, L101.9900, L100.0500 #### [facility] [address] [place], [address] WBC (Bld) [#/Vol] 7.8 10*3/uL Normal 4.4-11.0 [facility] Comment on above: Order Comment: 107.1 Performed By: #### L 500.4050, L101.9900, L100.0500 #### [facility] [address] [place], [address] Carbon dioxide measurementOr dered By: Mario Mak on 01-07-2025 CO2 [Moles/Vol] 28.0 mmol/L 21.0-32.0 [facility] Chloride measurementOrdered By: Mario Mak on 01-07-2025 Chloride [Moles/Vol] 105 mmol/L 98-107 [facility] Comprehensive Metabolic Prof ilon 01-07-2025 Albumin [Mass/Vol] 2.1 g/dL Low 3.2-5.0 [facility] Comment on above: Performed By: #### L 500.4050, L101.9900, L100.0500 #### [facility] [address] [place], [address] Albumin/Globulin [Mass ratio] 0.6 {ratio} Low 0.9-2.4 [facility] Comment on above: Performed By: #### L 500.4050, L101.9900, L100.0500 #### [facility] [address] [place], [address] ALK P 95 U/L Normal 45-117 [facility] Comment on above: Performed By: #### L 500.4050, L101.9900, L100.0500 #### [facility] [address] [place], [address] ALT [Catalytic activity/Vol] U/L Low 13-56 [facility] Comment on above: Performed By: #### L 500.4050, L101.9900, L100.0500 #### [facility] [address] [place], [address] AST [Catalytic activity/Vol] 21 U/L Normal 15-37 [facility] Comment on above: Performed By: #### L 500.4050, L101.9900, L100.0500 #### [facility] [address] [place], [address] Bilirubin [Mass/Vol] 0.20 mg/dL Normal 0.20-1.00 [facility] Comment on above: Result Comment: For patients on eltrombopag therapy, use of Dimension [place] TBIL is not recommended. Performed By: #### L 500.4050, L101.9900, L100.0500 #### [facility] [address] [place], [address] BUN/CRE 37.0 RATIO High 10-20 [facility] Comment on above: Performed By: #### L 500.4050, L101.9900, L100.0500 #### [facility] [address] [place], [address] CA,Total 8.6 mg/dL Normal 8.5-10.1 [facility] Comment on above: Performed By: #### L 500.4050, L101.9900, L100.0500 #### [facility] [address] [place], [address] Chloride [Moles/Vol] 105 mmol/L Normal 98-107 [facility] Comment on above: Performed By: #### L 500.4050, L101.9900, L100.0500 #### [facility] [address] [place], [address] CO2 [Moles/Vol] 28.0 mmol/L Normal 21.0-32.0 [facility] Comment on above: Performed By: #### L 500.4050, L101.9900, L100.0500 #### [facility] [address] [place], [address] Creatinine [Mass/Vol] 0.76 mg/dL Normal 0.55-1.02 [facility] Comment on above: Result Comment: The validity of the calculated GFR GFRAA in patients over 70 years has not been determined. Clinical correlation is essential. Performed By: #### L 500.4050, L101.9900, L100.0500 #### [facility] [address] [place], [address] EST GFR - AA 93 mL/min Normal >60 [facility] Comment on above: Result Comment: Afri can Bulgarian GFR Calc Performed By: #### L 500.4050, L101.9900, L100.0500 #### [facility] [address] [place], [address] GAP 7 Normal 5-15 [facility] Comment on above: Performed By: #### L 500.4050, L101.9900, L100.0500 #### [facility] [address] [place], [address] GFR/1.73 sq M.predicted among non-blacks MDRD (S/P/Bld) [Vol rate/Area] 77 mL/min/{1.73_m2} Normal >60 [facility] Comment on above: Result Comment: Non- GFR Calc Performed By: #### L 500.4050, L101.9900, L100.0500 #### [facility] [address] [place], [address] Globulin (S) [Mass/Vol] 3.4 g/dL Normal 2.2-4.2 [facility] Comment on above: Performed By: #### L 500.4050, L101.9900, L100.0500 #### [facility] [address] [place], [address] Glucose [Mass/Vol] 58 mg/dL Low 74-106 [facility] Comment on above: Performed By: #### L 500.4050, L101.9900, L100.0500 #### [facility] [address] [place], [address] Potassium [Moles/Vol] 4.1 mmol/L Normal 3.5-5.1 [facility] Comment on above: Performed By: #### L 500.4050, L101.9900, L100.0500 #### [facility] [address] [place], [address] Sodium [Moles/Vol] 139 mmol/L Normal 136-145 [facility] Comment on above: Performed By: #### L 500.4050, L101.9900, L100.0500 #### [facility] [address] [place], [address] T PROT 5.5 g/dL Low 6.4-8.2 [facility] Comment on above: Performed By: #### L 500.4050, L101.9900, L100.0500 #### [facility] [address] [place], [place], [address] Urea nitrogen [Mass/Vol] 28 mg/dL High 7-18 [facility] Comment on above: Performed By: #### L 500.4050, L101.9900, L100.0500 #### [facility] [address] [place], [address] Eosinophil percentageOrdered By: Mario Mak on 01-07-2025 Eosinophils/100 WBC (Bld) 3.2 % 0-5 [facility] Erythrocyte Sed Rateon 01-07 SED RATE 41 mm/hr High 0-30 [facility] Comment on above: Order Comment: 107.1 Performed By: #### L 500.4050, L101.9900, L100.0500 #### [facility] [address] [place], [place], [address] Erythrocyte distribution wid th (RBC) [Ratio]Ordered By: Mario Mak on 01-07-2025 Erythrocyte distribution width (RBC) [Entitic vol] 56.5 fL High 35.1-43.9 [facility] Erythrocyte distribution wid th ratioOrdered By: Mario Mak on 01-07-2025 Erythrocyte distribution width (RBC) [Ratio] 16.5 % High 11.6-14.6 [facility] Erythrocyte distribution wid th standard deviationOrdered By: Mario Mak on 01-07-2025 Erythrocyte distribution width (RBC) [Ratio] 56.5 fl High 35.1-43.9 [facility] Erythrocyte sedimentation ra teOrdered By: Mario Mak on 01-07-2025 ESR (Bld) [Velocity] 41 mm/h High 0-30 [facility] Estimated glomerular filtrat ion rate (GFR) AmericanOrdered By: Mario Mak on 01-07-2025 Estimated GFR (MDRD) Amer 93 mL/min >60 [facility] Comment on above: GFR Calc Glomerular filtration rate ( GFR) estimationOrdered By: Mario Mak on 01-07-2025 Estimated GFR (MDRD) Non-Af Amer 77 mL/min >60 [facility] Comment on above: Non- GFR Calc GFR/1.73 sq M.predicted among non-blacks MDRD (S/P/Bld) [Vol rate/Area] 77 mL/min/{1.73_m2} >60 [facility] Comment on above: Non- GFR Calc Glucose measurementOrdered B y: Mario Mak on 01-07-2025 Glucose [Mass/Vol] 58 mg/dL Low 74-106 [facility] Hematocrit Auto (Bld) [Volum e fraction]Ordered By: Mario Mak on 01-07-2025 Hematocrit (Bld) [Volume fraction] 28.5 % Low 37-47 [facility] Hemoglobin measurementOrdere d By: Mario Mak on 01-07-2025 Hemoglobin (Bld) [Mass/Vol] 8.9 g/dL Low 12.0-15.0 [facility] Immature granulocytes/100 WB C Auto (Bld)Ordered By: Mario Mak on 01-07-2025 Immature granulocytes/100 WBC (Bld) 0.600 % 0.0-0.9 [facility] Comment on above: IG% - Immature Granu locytes (promyelocytes, myelocytes and metamyelocytes) > 1% indicates that a LEFT SHIFT is Present. Laboratory - Chemistry and C hemistry - challengeOrdered By: Mario Mak on 01-07-2025 AST [Catalytic activity/Vol] 21 U/L 15-37 [facility] Lymphocytes Auto (Unsp spec) [#/Vol]Ordered By: Mario Mak on 01-07-2025 Lymphocytes (Bld) [#/Vol] 0.98 10*3/uL 0.83-4.51 [facility] Lymphocytes/100 WBC Auto (Un sp spec)Ordered By: Mario Mak on 01-07-2025 Lymphocytes/100 WBC (Bld) 12.6 % Low 19-41 [facility] MCV (mean corpuscular volume ) determinationOrdered By: Mario aMk on 01-07-2025 MCV (RBC) [Entitic vol] 91.9 fL 81-99 [facility] Mean corpuscular hemoglobin (MCH) determinationOrdered By: Mario Mak on 01-07-2025 MCH (RBC) [Entitic mass] 28.7 pg 27.0-32.0 [facility] Mean corpuscular hemoglobin concentration (MCHC) determinationOrdered By: Mario Mak on 01-07-2025 MCHC (RBC) [Mass/Vol] 31.2 g/dL Low 32-36 [facility] Mean platelet volume determi nationOrdered By: Mario Mak on 01-07-2025 Platelet mean volume (Bld) [Entitic vol] 9.8 fL 6.2-12.0 [facility] Monocyte percentageOrdered B y: Mario Mak on 01-07-2025 Monocytes/100 WBC (Bld) 9.9 % 0-10 [facility] Neutrophil percentageOrdered By: Mario Mak on 01-07-2025 Neutrophils/100 WBC (Bld) 73.2 % High 47-70 [facility] Nucleated red blood cell per centageOrdered By: Mario Mak on 01-07-2025 Nucleated RBC/100 WBC (Bld) [Ratio] 0 % 0-5 [facility] Platelet countOrdered By: Moreno on 01-07-2025 Platelets (Bld) [#/Vol] 319 10*3/uL 150-450 [facility] Potassium measurementOrdered By: Mario Mak on 01-07-2025 Potassium [Moles/Vol] 4.1 mmol/L 3.5-5.1 [facility] RBC Auto (Bld) [#/Vol]Ordere d By: Mario Mak on 01-07-2025 RBC (Bld) [#/Vol] 3.10 10*6/uL Low 4.2-5.4 [facility] Serum anion gap measurementO rdered By: Mario Mak on 01-07-2025 Anion gap [Moles/Vol] 7 mmol/L 5-15 [facility] Serum globulin measurementOr dered By: Mario Mak on 01-07-2025 Globulin (S) [Mass/Vol] 3.4 g/dL 2.2-4.2 [facility] Serum or plasma alanine melara otransferase (ALT) measurementOrdered By: Mario Mak on 01-07-2025 ALT [Catalytic activity/Vol] U/L Low 13-56 [facility] Serum or plasma albumin roma urement (mass/volume)Ordered By: Mario Mak on 01-07-2025 Albumin [Mass/Vol] 2.1 g/dL Low 3.2-5.0 [facility] Serum or plasma alkaline krystal sphatase measurementOrdered By: Mario Mak on 01-07-2025 ALP [Catalytic activity/Vol] 95 U/L 45-117 [facility] Serum or plasma calcium roma urement (mass/volume)Ordered By: Mario Mak on 01-07-2025 Calcium [Mass/Vol] 8.6 mg/dL 8.5-10.1 [facility] Serum or plasma creatinine m easurement (mass/volume)Ordered By: Mario Mak on 01-07-2025 Creatinine [Mass/Vol] 0.76 mg/dL 0.55-1.02 [facility] Comment on above: The validity of the calculated GFR & GFRAA in patients over 70 years has not been determined. Clinical correlation is essential. Serum or plasma urea nitroge n measurement (mass/volume)Ordered By: Mario Mak on 01-07-2025 Urea nitrogen [Mass/Vol] 28 mg/dL High 7-18 [facility] Sodium levelOrdered By: Mario Mak on 01-07-2025 Sodium [Moles/Vol] 139 mmol/L 136-145 [facility] Total proteinOrdered By: Shwetha Mak on 01-07-2025 Protein [Mass/Vol] 5.5 g/dL Low 6.4-8.2 [facility] White blood cell (WBC) count Ordered By: Mario Mak on 01-07-2025 WBC (Bld) [#/Vol] 7.8 10*3/uL 4.4-11.0 [facility] Pyridoxine [Mass/Vol]on 12-16 Interpretation and review of laboratory results Abnormal [facility] VITAMIN B6/PYRIDOXINon 01-06 Pyridoxine [Mass/Vol] 13.8 nmol/L Low 20.0 - 125.0 nmol/L [facility] Comment on above: INTERPRETIVE INFORMA TION: Vitamin B6 (Pyridoxal 5-Phosphate) Pyridoxal 5'-phosphate measured in a specimen collected following an 8-hour or overnight fast accurately indicates vitamin B6 nutritional status. Non-fasting specimen concentration reflects recent vitamin intake. This test was developed and its performance characteristics determined by [facility]. It has not been cleared or approved by the US Food and Drug Administration. This test was performed in a CLIA certified laboratory and is intended for clinical purposes. Performed By: [facility] [address] [place] [address] Health Care Liaison: Marcellus Raza MD, PhD CLIA Number: [id number] OVon 01-04-2025 [place] Office Visit (MARJORIE ) YUSUF MEDINA ([id number]) 1935 F [facility] Date Time Provider Department 01/04/25 8:00 AM TYESHA SINGLETON During your visit today, we recorded the following information about you: Pulse Respiration Blood pressure Weight 84/minute 16/minute 165/59 47 kg Height 1.524 m Tyesha Singleton MD 01/04/2025 9:10 AM Signed Yusufian Medina is a 89 year old female [...] with dramatic improvement Currently she is in [place] and here with [facility] and nurse aid who gives the history Currently she is pain free Also spoke with her nurse [place] who states patient does nto complain of pain, pretty sedentary. No specific complaints at [place] per nurse Currently doing well, no pain at present Family states after debridement of rt ankle- patient feels weak and does not want to walk around Was living alone until 2 months ago and now at [place]. Prior to debridement , patient was not [...] L REMV CATARACT EXTRACAP,INSERT LENS Bilateral 2020 [facility] predniSONE (DELTASONE) 5 mg tablet Take [...] by mouth (more content not included)... [facility] Telephone (4CQ) YUSUF MEDINA ([id number]) 1935 F [place] Date Time Provider Department 01/03/25 CRAMER, MIGDALIA D 4CQ During your visit today, we recorded the following information about you: Alicia Coffey 01/03/2025 12:30 PM Addendum Received call from [facility]. The administrative representative has appointment with patient's sons this afternoon at 2 pm and is requesting Advanced Directive/POA paperwork that was scanned in on 12/31. Advised to send records request, but she is concerned about not having this paperwork by 2 pm meeting. District Manager Postal Service can be reached at [phone]. Fax number given for records request as well. Jame Tam MA 01/03/2025 4:16 PM Signed Records release was not signed. Please review and advice. Willie Kaur APRN.CNP 01/04/2025 9:45 AM Signed Please advise [facility] that if patient signs record release, they can get any records they need from [facility] medical records. Or family can sign record request at [facility] and [facility] can fax Family Medicine the records request and I can send what I can. Our fax is [phone]. Willie Kaur APRN.Keke Page RN 01/04/2025 12:12 PM Signed Spoke with a laboratory secretary at [facility], he took the info again to get us a signed records release faxed to the office. Please watch for fax Willie Kaur APRN.CNP 01/04/2025 4:20 PM Signed The initial note indicates that a "administrative representative" is calling and gave return phone number [phone]. I called this number and phone rang and rang numerous times. No voice mail. I can print of POA, stamp and fax since this is a facility to facility request. Given to nursing. If the "administrative representative" needs anything else and calls back, Please ask for name and direct line so that return call can be made. Thank you. Willie Kaur APRN.Sandrita Arevalo LPN 01/04/2025 4:29 PM Signed Received record release from [facility]. Faxed to number provided on [...] patient by: CAREGIVER José Miguel Swanson [facility] Problem List As Of Date 01/03/2025 Noted Resolved Osteoarth NOS-other site [M19.90] 09/15/2011 BENIGN HYPERTENSION [I10] 12/01/2016 Diabetes mellitus (HCC) [E11.9] 04/10/2003 Esophageal reflux [K21.9] 06/15/2006 Lumbago [M54.50] 05/31/2007 09/15/2011 Urgency of urination [R39.15] (more content not included)... [facility] COPPER BLOODon 01-03-2025 Copper [Mass/Vol] 128 ug/dL 80 - 155 ug/dL [facility] Comment on above: This test was rossanao ped, and its performance characteristics determined by the [facility] Department of Pathology and Laboratory Medicine. It has not been cleared or approved by the FDA. The [facility] Department of Pathology and Laboratory Medicine is regulated under CLIA as qualified to perform high-complexity testing. This test is used for clinical purposes. It should not be regarded as investigational or for research. Interpretation and review of laboratory results Normal [facility] FERRITINon 01-03-2025 Ferritin [Mass/Vol] 865 ng/mL High 14.7 - 2 05.1 ng/mL [facility] FOLATE, SERUMon 01-03-2025 Folate [Mass/Vol] 14.8 ng/mL 4.7 - PINF ng/mL [facility] Ferritin [Mass/Vol]on 2024 Interpretation and review of laboratory results Abnormal [facility] Iron and Iron binding capaci ty panelon 01-03-2025 Interpretation and review of laboratory results Normal [facility] Iron [Mass/Vol] 46 ug/dL 41 - 186 ug/dL [facility] Iron binding capacity [Mass/Vol] 245 ug/dL 232 - 386 ug/dL [facility] Iron/TIBC [Molar ratio] 18.8 % 15.0 - 57.0 % [facility] No Panel InformationOrdered By: Ok Mederos on 01-03-2025 [facility] No Panel Informationon 01-03 Interpretation and review of laboratory results Normal [facility] VITAMIN B12on 01-03-2025 Cobalamin (Vitamin B12) [Mass/Vol] 582 pg/mL 232 - 1245 pg/mL [facility] ZINC BLDOrdered By: Ok da silva on 01-03-2025 Zinc [Mass/Vol] 56 ug/dL Low 60 - 120 ug/dL [facility] Comment on above: This test was develo ped, and its performance characteristics determined by the [facility] Department of Pathology and Laboratory Medicine. It has not been cleared or approved by the FDA. The [facility] Department of Pathology and Laboratory Medicine is regulated under CLIA as qualified to perform high-complexity testing. This test is used for clinical purposes. It should not be regarded as investigational or for research. Zinc [Mass/Vol]Ordered By: Ricardo Mederos on 01-03-2025 Interpretation and review of laboratory results Abnormal [facility] CBC W Auto Differential pane l (Bld)on 01-02-2025 Basophils (Bld) [#/Vol] 0.03 10*3/uL [facility] Basophils/100 WBC (Bld) 0.3 % [facility] Differential cell count method Nom (Bld) Auto [facility] Eosinophils (Bld) [#/Vol] 0.3 10*3/uL [facility] Eosinophils/100 WBC (Bld) 2.9 % [facility] Erythrocyte distribution width (RBC) [Ratio] 17.2 % High 11.5 - 15.0 % [facility] Hematocrit (Bld) [Volume fraction] 34.1 % Low 36.0 - 46.0 % [facility] Hemoglobin (Bld) [Mass/Vol] 10.5 g/dL Low 11.5 - 15.5 g/dL [facility] Immature granulocytes (Bld) [#/Vol] 0.1 10*3/uL High [facility] Immature granulocytes/100 WBC (Bld) 1 % [facility] Interpretation and review of laboratory results Abnormal [facility] Lymphocytes (Bld) [#/Vol] 0.78 10*3/uL Low [facility] Lymphocytes/100 WBC (Bld) 7.5 % [facility] MCH (RBC) [Entitic mass] 28.5 pg 26.0 - 34.0 pg [facility] MCHC (RBC) [Mass/Vol] 30.8 g/dL 30.5 - 36.0 g/dL [facility] MCV (RBC) [Entitic vol] 92.4 fL 80.0 - 100.0 fL [facility] Monocytes (Bld) [#/Vol] 0.61 10*3/uL [facility] Monocytes/100 WBC (Bld) 5.9 % [facility] Neutrophils (Bld) [#/Vol] 8.56 10*3/uL High [facility] Neutrophils/100 WBC (Bld) 82.4 % [facility] Nucleated [facility] (Bld) [#/Vol[facility] Nucleated RBC/100 WBC (Bld) [Ratio] 0 % /100 WBC [facility] Platelet mean volume (Bld) [Entitic vol] 8.7 fL Low 9.0 - 12.7 fL [facility] Platelets (Bld) [#/Vol] 362 10*3/uL [facility] RBC (Bld) [#/Vol] 3.69 10*6/uL Low 3.90 - 5.2 0 m/uL [facility] WBC (Bld) [#/Vol] 10.38 10*3/uL [facility] Basophils (Bld) [#/Vol] 0.03 10*3/uL Normal <0.11 [facility] Comment on above: Order Comment: Speci men Type: BLOOD SPECIMENOrdering Facility: [facility] Address: [address] [place] [address] Performed By: #### 5 7021-8 ###[facility]KE [facility] LABCLIA [id number] [address] OF [facility] Basophils/100 WBC (Bld) 0.3 % Normal [facility] Comment on above: Order Comment: Speci men Type: BLOOD SPECIMENOrdering Facility: [facility] Address: [address] [place] [address] Performed By: #### 5 7021-8 ####ADRYAN [facility] LABCLIA [id number] [place] [address] [place] Differential cell count method Nom (Bld) Auto Normal [facility] Comment on above: Order Comment: Speci men Type: BLOOD SPECIMENOrdering Facility: [facility] Address: [address] [place] [address] Performed By: #### 5 7021-8 ####ADRYAN [facility]CLIA [id number] [address] [place] Eosinophils (Bld) [#/Vol] 0.30 10*3/uL Normal <0.46 [facility] Comment on above: Order Comment: Speci men Type: BLOOD SPECIMENOrdering Facility: [facility] Address: [address] [place] [address] Performed By: #### 5 7021-8 ####[place]EN[place]EN [facility]CLIA [id number] [address] Eosinophils/100 WBC (Bld) 2.9 % Normal [facility] Comment on above: Order Comment: Speci men Type: BLOOD SPECIMENOrdering Facility: [facility] Address: [address] [place] [address] Performed By: #### 5 7021-8 ####ADRYAN [facility] [id number] [address] [place] Erythrocyte distribution width (RBC) [Ratio] 17.2 % High 11.5-15.0 [facility] Comment on above: Order Comment: Speci men Type: BLOOD SPECIMENOrdering Facility: [facility] Address: [address] [place] [address] Performed By: #### 5 7021-8 ####ADRYAN [facility] [id number] [address] [place] Hematocrit (Bld) [Volume fraction] 34.1 % Low 36.0-46.0 [facility] Comment on above: Order Comment: Speci men Type: BLOOD SPECIMENOrdering Facility: [facility] Address: [address] [place] [address] Performed By: #### 5 7021-8 ####ADRYAN [facility] LABCLIA [id number] [place] [address] [place] Hemoglobin (Bld) [Mass/Vol] 10.5 g/dL Low 11.5-15.5 [facility] Comment on above: Order Comment: Speci men Type: BLOOD SPECIMENOrdering Facility: [facility] Address: [address] [place] [address] Performed By: #### 5 7021-8 ####ADRYAN [facility]CLIA [id number] [place] [address] [place] Immature granulocytes (Bld) [#/Vol] 0.10 10*3/uL High <0.10 [facility] Comment on above: Order Comment: Speci men Type: BLOOD SPECIMENOrdering Facility: [facility] Address: [address] [place] [address] Performed By: #### 5 7021-8 ####ADRYAN [facility] [id number] [address] [place] Immature granulocytes/100 WBC (Bld) 1.0 % Normal [facility] Comment on above: Order Comment: Speci men Type: BLOOD SPECIMENOrdering Facility: [facility] Address: [address] [place] [address] Performed By: #### 5 7021-8 ####ADRYAN [facility] LABCLIA [id number] [place] [address] [place] Lymphocytes (Bld) [#/Vol] 0.78 10*3/uL Low 1.00-4.00 [facility] Comment on above: Order Comment: Speci men Type: BLOOD SPECIMENOrdering Facility: [facility] Address: [address] [place] [address] Performed By: #### 5 7021-8 ####[facility]EN [facility]CLIA [id number] [place] [address] [place] Lymphocytes/100 WBC (Bld) 7.5 % Normal [facility] Comment on above: Order Comment: Speci men Type: BLOOD SPECIMENOrdering Facility: [facility] Address: [address] [place] [address] Performed By: #### 5 7021-8 ####[facility] LABCLIA [id number] [place] [address] [place] MCH (RBC) [Entitic mass] 28.5 pg Normal 26.0-34.0 [facility] Comment on above: Order Comment: Speci men Type: BLOOD SPECIMENOrdering Facility: [facility] Address: [address] [place] [address] Performed By: #### 5 7021-8 ####ADRYAN [facility] LABCLIA [id number] [address] [place] MCHC (RBC) [Mass/Vol] 30.8 g/dL Normal 30.5-36.0 [facility] Comment on above: Order Comment: Speci men Type: BLOOD SPECIMENOrdering Facility: [facility] Address: [address] [place] [address] Performed By: #### 5 7021-8 ####ADRYAN [facility]CLIA [id number] [address] [place] MCV (RBC) [Entitic vol] 92.4 fL Normal 80.0-100.0 [facility] Comment on above: Order Comment: Speci men Type: BLOOD SPECIMENOrdering Facility: [facility] Address: [address] [place] [address] Performed By: #### 5 7021-8 ####ADRYAN [facility] LABCLIA [id number] [address] Monocytes (Bld) [#/Vol] 0.61 10*3/uL Normal <0.87 [facility] Comment on above: Order Comment: Speci men Type: BLOOD SPECIMENOrdering Facility: [facility] Address: [address] [place] [address] Performed By: #### 5 7021-8 ####ADRYAN [facility] LABCLIA [id number] [place] [address] [place] Monocytes/100 WBC (Bld) 5.9 % Normal [facility] Comment on above: Order Comment: Speci men Type: BLOOD SPECIMENOrdering Facility: [facility] Address: [address] [place] [address] Performed By: #### 5 7021-8 ####ADRYAN [facility] LABCLIA [id number] [place] [address] [place] Neutrophils (Bld) [#/Vol] 8.56 10*3/uL High 1.45-7.50 [facility] Comment on above: Order Comment: Speci men Type: BLOOD SPECIMENOrdering Facility: [facility] Address: [address] [place] [address] Performed By: #### 5 7021-8 ####[facility]AN [facility] LABCLIA [id number] [place] [address] [place] Neutrophils/100 WBC (Bld) 82.4 % Normal [facility] Comment on above: Order Comment: Speci men Type: BLOOD SPECIMENOrdering Facility: [facility] Address: [address] [place] [address] Performed By: #### 5 7021-8 ####AD[facility]AN [facility] LABCLIA [id number] [place] [address] [place] Nucleated RBC (Bld) [#/Vol] 10*3/uL Normal <0.01 [facility] Comment on above: Order Comment: Speci men Type: BLOOD SPECIMENOrdering Facility: [facility] Address: [address] [place] [address] Performed By: #### 5 7021-8 ####STRONGSHIEN [facility] LABCLIA [id number] [place] [address] [place] Nucleated RBC/100 WBC (Bld) [Ratio] 0.0 /100 WBC Normal [facility] Comment on above: Order Comment: Speci men Type: BLOOD SPECIMENOrdering Facility: [facility] Address: [address] [place] [address] Performed By: #### 5 7021-8 ####AD[facility]AN [facility] LABCLIA [id number] [place] [address] [place] Platelet mean volume (Bld) [Entitic vol] 8.7 fL Low 9.0-12.7 [facility] Comment on above: Order Comment: Speci men Type: BLOOD SPECIMENOrdering Facility: [facility] Address: [address] [place] [address] Performed By: #### 5 7021-8 ####ADRYAN [facility] LABCLIA [id number] [place] [address] [place] Platelets (Bld) [#/Vol] 362 10*3/uL Normal 150-400 [facility] Comment on above: Order Comment: Speci men Type: BLOOD SPECIMENOrdering Facility: [facility] Address: [address] [place] [address] Performed By: #### 5 7021-8 ####YAREDADEN [facility] LABIA [id number] [place] [address] [place] RBC (Bld) [#/Vol] 3.69 10*6/uL Low 3.90-5.20 [facility] Comment on above: Order Comment: Speci men Type: BLOOD SPECIMENOrdering Facility: [facility] Address: [address] [place] [address] Performed By: #### 5 7021-8 ####[facility] LABCLIA [id number] [place] [address] [place] WBC (Bld) [#/Vol] 10.38 10*3/uL Normal 3.70-11.00 [facility] Comment on above: Order Comment: Speci men Type: BLOOD SPECIMENOrdering Facility: [facility] Address: [address] [place] [id number] Performed By: #### 5 7021-8 ####[place] [facility] LABCLIA [id number] [address] OF [facility] CNOVSPon 01-02-2025 CNOVSP Visit (SP) Office (HEMAST) UYSUF MEDINA ([id number]) 1935 F [place] Date Time Provider Department [...] L REMV CATARACT EXTRACAP,INSERT LENS Bilateral 2020 [facility] FAMILY HISTORY Problem Relation Age of [...] daily. amLODI (more content not included)... [facility] CNPKelsie 01-02-2025 DRAKEN Telephone (HEMAST) YUSUF MEDINA ([id number]) 1935 [facility] Date Time Provider Department 01/02/25 ADITI LOPEZ During your visit today, we recorded the following information about you: Aditi Lopez LISW 01/02/2025 4:03 PM Signed SOCIAL WORK Date of Service: Thursday January 02, 2025 [facility] Stemhole Borer (SW) Aditi Lopez attempted to contact Yusuf Medina by phone using professional builder services to complete the distress assessment. Yusuf has been diagnosed with Normocytic anemia. She flagged for moderate depression on 12-31-24. 08/14/2018 11/21/2024 2024 PHQ-9 Score 9 13 12 LYRIC spoke with Yusuf's family member Mercedes. She advised that Yusuf is in a group home facility. Mercedes advised that she completed the questionnaire without the patient. She also noted that Yusuf will most likely not understand the Brazilian professional builder because she speaks a different dialect. At [...] patient by: CAREGIVER José Miguel Swanson [facility] Problem List As Of Date 01/02/2025 Noted [...] Osteoarth NOS-p (more content not included)... [facility] CONFIRM BLOOD TYPEon 025 ABO group Nom (Bld) O [facility] Rh Nom (Bld) Positive [facility] ABO O Normal [facility] Comment on above: Order Comment: Speci men Type: BLOOD SPECIMENOrdering Facility: [facility] Address: [address] [place] [address] Performed By: #### C ONABO ####[facility] BANKCLIA [id number] [place] [address] [place] Rh Nom (Bld) Positive Normal [facility] Comment on above: Order Comment: Speci men Type: BLOOD SPECIMENOrdering Facility: [facility] Address: [address] [place] [address] Performed By: #### C ONABO ####[facility] BLOOD BANKCLIA [id number] [place] [address] [place] COPPER BLOODon 01-02-2025 Copper [Mass/Vol] 128 ug/dL Normal 80-155 [facility] Comment on above: Order Comment: Speci men Type: BLOOD SPECIMENOrdering Facility: [facility] Address: [address] [facility] [place] [address] Result Comment: This test was developed, and its performance characteristics determined by the [facility] Department of Pathology and Laboratory Medicine. It has not been cleared or approved by the FDA. The [facility] Department of Pathology and Laboratory Medicine is regulated under CLIA as qualified to perform high-complexity testing. This test is used for clinical purposes. It should not be regarded as investigational or for research. Performed By: #### 5 763-8, COPPER ####[facility] LABCLIA [id number] [place] [address] [place] Comprehensive metabolic 2000 panelOrdered By: Aminta Lim on 01-02-2025 Albumin [Mass/Vol] 3.5 g/dL Low 3.9 - 4.9 g/dL [facility] ALP [Catalytic activity/Vol] 128 U/L High 34 - 123 U/L [facility] ALT [Catalytic activity/Vol] U/L Low 7 - 38 U/L [facility] Anion gap [Moles/Vol] 13 mmol/L 8 - 15 mmol/L [facility] AST [Catalytic activity/Vol] 15 U/L 13 - 35 U/L [facility] Bilirubin [Mass/Vol] 0.2 mg/dL 0.2 - 1 .3 mg/dL [facility] Calcium [Mass/Vol] 9.1 mg/dL 8.5 - 10. 2 mg/dL [facility] Chloride [Moles/Vol] 98 mmol/L 98 - 10 7 mmol/L [facility] CO2 [Moles/Vol] 26 mmol/L 22 - 30 mmol/L [facility] Creatinine [Mass/Vol] 0.82 mg/dL 0.58 - 0.96 mg/dL [facility] GFR/1.73 sq M.predicted among non-blacks MDRD (S/P/Bld) [Vol rate/Area] 68 mL/min/{1.73_m2} - PINF [facility] Comment on above: Estimated Glomerular Filtration [...] 276 mg/dL High 74 - 99 mg/dL [facility] Comment on above: The [place] Diab[employer] s Association (ADA) provides guidance for [...] Standards of Medical Care in Diabetes 2016, [place] Diabetes Association. Diabetes Care. 2016.39(Suppl 1). Interpretation and review of laboratory results Abnormal [facility] Potassium [Moles/Vol] 5.1 mmol/L 3.7 - 5.1 mmol/L [facility] Protein [Mass/Vol] 5.9 g/dL Low 6.3 - 8.0 g/dL [facility] Sodium [Moles/Vol] 137 mmol/L 136 - 144 mmol/L [facility] Urea nitrogen [Mass/Vol] 29 mg/dL High 7 - 21 mg/dL [facility] Comprehensive metabolic 2000 panelon 01-02-2025 Albumin [Mass/Vol] 3.5 g/dL Low 3.9-4.9 [facility] Comment on above: Order Comment: Speci men Type: BLOOD SPECIMENOrdering Facility: [facility] Address: [address] [place] [address] Performed By: #### 2 4323-8 ####ADRYAN [facility] LABCLIA [id number] [place] [id number] [place] ALP [Catalytic activity/Vol] 128 U/L High 34-123 [facility] Comment on above: Order Comment: Speci men Type: BLOOD SPECIMENOrdering Facility: [facility] Address: [address] [place] [address] Performed By: #### 2 4323-8 ####ADRYAN [facility] LABCLIA [id number] [place] [address] [place] ALT [Catalytic activity/Vol] U/L Low 7-38 [facility] Comment on above: Order Comment: Speci men Type: BLOOD SPECIMENOrdering Facility: [facility] Address: [address] [place] [address] Performed By: #### 2 4323-8 ####[facility] LABCLIA [id number] [place] [address] [place] Anion gap [Moles/Vol] 13 mmol/L Normal 8-15 [facility] Comment on above: Order Comment: Speci men Type: BLOOD SPECIMENOrdering Facility: [facility] Address: [address] [place] [address] Performed By: #### 2 4323-8 ####[facility] LABCLIA [id number] [place] [address] [place] AST [Catalytic activity/Vol] 15 U/L Normal 13-35 [facility] Comment on above: Order Comment: Speci men Type: BLOOD SPECIMENOrdering Facility: [facility] Address: [address] [place] [address] Performed By: #### 2 4323-8 ####ADRYAN [facility] [id number] [place] [address] [place] Bilirubin [Mass/Vol] 0.2 mg/dL Normal 0.2-1.3 [facility] Comment on above: Order Comment: Speci men Type: BLOOD SPECIMENOrdering Facility: [facility] Address: [address] [place] [address] Performed By: #### 2 4323-8 ####ADRYAN [facility] [id number] [place] [address] [place] Calcium [Mass/Vol] 9.1 mg/dL Normal 8.5-10.2 [facility] Comment on above: Order Comment: Speci men Type: BLOOD SPECIMENOrdering Facility: [facility] Address: [address] [place] [address] Performed By: #### 2 4323-8 ####ADRYAN [facility]CLIA [id number] [place] [id number] [place] Chloride [Moles/Vol] 98 mmol/L Normal 98-107 [facility] Comment on above: Order Comment: Speci men Type: BLOOD SPECIMENOrdering Facility: [facility] Address: [address] [place] [address] Performed By: #### 2 4323-8 ####ADRYAN [facility]CL[facility] [id number] [place] [id number] [place] CO2 [Moles/Vol] 26 mmol/L Normal 22-30 [facility] Comment on above: Order Comment: Speci men Type: BLOOD SPECIMENOrdering Facility: [facility] Address: [address] [place] [address] Performed By: #### 2 4323-8 ####ADRYAN [facility]CL[facility] [id number] [place] [id number] [place] Creatinine [Mass/Vol] 0.82 mg/dL Normal 0.58-0.96 [facility] Comment on above: Order Comment: Speci men Type: BLOOD SPECIMENOrdering Facility: [facility] Address: [address] [place] [address] Performed By: #### 2 4323-8 ####ADRYAN [facility] [id number] [address] Creatinine and Glomerular filtration rate.predicted panel (S/P/Bld) 68 mL/min/1.73m??? Normal >=60 [facility] Comment on above: Order Comment: Speci men Type: BLOOD SPECIMENOrdering Facility: [facility] Address: [address] [place] [address] Result Comment: Hilda mated Glomerular Filtration Rate [...] GFR. Performed By: #### 2 4323-8 ####ADRYAN [facility]CL[facility] [id number] [place] [address] [place] Glucose [Mass/Vol] 276 mg/dL High 74-99 [facility] Comment on above: Order Comment: Speci men Type: BLOOD SPECIMENOrdering Facility: [facility] Address: [address] [place] [address] Result Comment: The [place] Diabetes Association (ADA) provides guidance for cutoff [...] Standards of Medical Care in Diabetes 2016, [place] [employer]. Diabetes Care. 2016.39(Suppl 1). Performed By: #### 2 4323-8 ####ADRYAN [facility] [id number] [place] [address] [place] Potassium [Moles/Vol] 5.1 mmol/L Normal 3.7-5.1 [facility] Comment on above: Order Comment: Speci men Type: BLOOD SPECIMENOrdering Facility: [facility] Address: [address] [place] [id number] Performed By: #### 2 4323-8 ####ADRYAN [facility] [id number] [place] [id number] [place] Protein [Mass/Vol] 5.9 g/dL Low 6.3-8.0 [facility] Comment on above: Order Comment: Speci men Type: BLOOD SPECIMENOrdering Facility: [facility] Address: [address] [place] [address] Performed By: #### 2 4323-8 ####ADRYAN [facility]IA [id number] [place] [id number] [place] Sodium [Moles/Vol] 137 mmol/L Normal 136-144 [facility] Comment on above: Order Comment: Speci men Type: BLOOD SPECIMENOrdering Facility: [facility] Address: [address] [place] [address] Performed By: #### 2 4323-8 ####ADRYAN [facility] [id number] [place] [id number] [place] Urea nitrogen [Mass/Vol] 29 mg/dL High 7-21 [facility] Comment on above: Order Comment: Speci men Type: BLOOD SPECIMENOrdering Facility: [facility] Address: [address] [place] [address] Performed By: #### 2 4323-8 ####ADRYAN [facility] [id number] [place] [id number] [place] ESR Westergren method (Bld) [Velocity]on 01-02-2025 ESR (Bld) [Velocity] 47 mm/h High [facility] Interpretation and review of laboratory results Abnormal [facility] ESR (Bld) [Velocity] 47 mm/h High 0-20 [facility] Comment on above: Order Comment: Speci men Type: BLOOD SPECIMEN [facility] Address: [address] [place] [address] Performed By: #### 5 7021-8 #### JENNIFER [facility] CLIA [id number] [address] [place] [address] [place] Ferritin SerPl-mCncon 2024 Ferritin [Mass/Vol] 865.0 ng/mL High 14.7-205.1 [facility] Comment on above: Order Comment: Speci men Type: BLOOD SPECIMENOrdering Facility: [facility] Address: [address] [place], [place] [address] Performed By: #### 2 132-9, 6-4, 03771-3, 2283-8 ####[facility] LABCLIA [id number] [address] [address] [place] Folate SerPl-ncon 01-02-20 25 Folate [Mass/Vol] 14.8 ng/mL Normal >4.7 [facility] Comment on above: Order Comment: Speci men Type: BLOOD SPECIMENOrdering Facility: [facility] Address: [address] [place] [address] Performed By: #### 2 132-9, 6-4, 91776-1, 8 ####[facility] LABCLIA [id number] [place] [id number] [place] Iron and Iron binding capaci ty panelon 01-02-2025 Iron [Mass/Vol] 46 ug/dL Normal 41-186 [facility] Comment on above: Order Comment: Speci men Type: BLOOD SPECIMENOrdering Facility: [facility] Address: [address] [place] [address] Performed By: #### 2 132-9, 6-4, 44087-9, 8 ####[facility] LABCLIA [id number] [place] [address] [place] Iron binding capacity [Mass/Vol] 245 ug/dL Normal 232-386 [facility] Comment on above: Order Comment: Speci men Type: BLOOD SPECIMENOrdering Facility: [facility] Address: [address] [place] [address] Performed By: #### 2 132-9, 6-4, 64650-1, 8 ####[facility] LABCLIA [id number] [place] [id number] [place] Iron/TIBC [Molar ratio] 18.8 % Normal 15.0-57.0 [facility] Comment on above: Order Comment: Speci men Type: BLOOD SPECIMENOrdering Facility: [facility] Address: [address] [place] [address] Performed By: #### 2 132-9, 2276-4, 50515-4, 2284-8 ####[facility] LABCLIA [id number] [place] [address] [place] TYPE + SCREENon 01-02-2025 ABO group Nom (Bld) O [facility] Blood group antibody screen Ql Negative [facility] Rh Nom (Bld) Positive [facility] Type and Screen Expiration 01/05/2025 23:59 [facility] ABO O Normal [facility] Comment on above: Order Comment: Speci men Type: BLOOD SPECIMENOrdering Facility: [facility] Address: [address] [place] [address] Performed By: #### T SCR ####[facility] BANKCLIA [id number] [place] [address] [place] Rh Nom (Bld) Positive Normal [facility] Comment on above: Order Comment: Speci men Type: BLOOD SPECIMENOrdering Facility: [facility] Address: [address] [place] [address] Performed By: #### T SCR ####[facility] BLOOD BANKCLIA [id number] [place] [address] [place] TYPE AND SCREEN EXPIRATION 01/05/2025 23:59 Normal [facility] Comment on above: Order Comment: Speci men Type: BLOOD SPECIMENOrdering Facility: [facility] Address: [address] [place] [address] Performed By: #### T SCR ####[facility] BLOOD BANKCLIA [id number] [place] [address] [place] VITAMIN B6/PYRIDOXINon 01-02 VITAMIN B6 13.8 nmol/L Low 20.0-125.0 [facility] Comment on above: Order Comment: Speci men Type: BLOOD SPECIMEN [facility] Address: [address] [place] [address] Result Comment: INTE RPRETIVE INFORMATION: Vitamin B6 (Pyridoxal 5-Phosphate) Pyridoxal 5'-phosphate measured in a specimen collected following an 8-hour or overnight fast accurately indicates vitamin B6 nutritional status. Non-fasting specimen concentration reflects recent vitamin intake. This test was developed and its performance characteristics determined by [facility]. It has not been cleared or approved by the [place] Food and Drug Administration. This test was performed in a CLIA certified laboratory and is intended for clinical purposes. Performed By: [facility] [address] [place] [address] Health Care Liaison: Marcellus Raza MD, PhD [place] Number: [id number] Performed By: #### 1 3964-2 #### [facility] CLIA [id number] [address] [place] [address] [place] Vit B12 SerPl-mCncon 025 Cobalamin (Vitamin B12) [Mass/Vol] 582 pg/mL Normal 232-1245 [facility] Comment on above: Order Comment: Speci men Type: BLOOD SPECIMENOrdering Facility: [facility] Address: [address] [place] [address] Performed By: #### 2 132-9, 2276-4, 91571-2, 2284-8 ####[facility] LABCLIA [id number] [place] [address] [place] Zinc SerPl-mCncon 01-02-2025 Zinc [Mass/Vol] 56 ug/dL Low 60-120 [facility] Comment on above: Order Comment: Speci men Type: BLOOD SPECIMENOrdering Facility: [facility] Address: [address] [place] [address] Result Comment: This test was developed, and its performance characteristics determined by the [facility] Department of Pathology and Laboratory Medicine. It has not been cleared or approved by the FDA. The [facility] Department of Pathology and Laboratory Medicine is regulated under CLIA as qualified to perform high-complexity testing. This test is used for clinical purposes. It should not be regarded as investigational or for research. Performed By: #### 5 763-8, COPPER ####[facility] LABCLIA [id number] [facility] [place] [address] [place] Absolute lymphocyte countOrd ered By: Mario Mak on 2024 Lymphocytes Auto (Unsp spec) [#/Vol] 0.88 10*3/uL 0.83-4.51 [facility] Absolute neutrophil countOrd ered By: Mario Mak on 2024 Neutrophils (Bld) [#/Vol] 5.4 10*3/uL 2.0-7.7 [facility] Albumin to globulin ratioOrd ered By: Mario Mak on 2024 Albumin/Globulin [Mass ratio] 0.7 {ratio} Low 0.9-2.4 [facility] Automated lymphocyte count a s percentage of total leukocytesOrdered By: Mario Mak on 2024 Lymphocytes/100 WBC Auto (Unsp spec) 11.9 % Low 19-41 [facility] Basophil percentageOrdered B y: Mario Mak on 2024 Basophils/100 WBC (Bld) 0.3 % 0-1 [facility] Bilirubin, totalOrdered By: Mario Mak on 2024 Bilirubin [Mass/Vol] 0.30 mg/dL 0.20-1.00 [facility] Comment on above: For patients on eltr ombopag therapy, use of Dimension [place] TBIL is not recommended. Blood urea nitrogen (BUN)/cr eatinine ratioOrdered By: Mario Mak on 2024 Urea nitrogen/Creatinine [Mass ratio] 30.9 mg/mg High 10-20 [facility] CBC W/Diff, Automatedon 12-15 Absolute Lymph 0.88 X10 3/uL Normal 0.83-4.51 [facility] Comment on above: Order Comment: 107.1 Performed By: #### L 500.4050, L101.9900, L100.0500 #### [facility] [address] [place], [address] Absolute Neut 5.4 X10 3/uL Normal 2.0-7.7 [facility] Comment on above: Order Comment: 107.1 Performed By: #### L 500.4050, L101.9900, L100.0500 #### [facility] [address] [place], [address] Basophils/100 WBC (Bld) 0.3 % Normal 0-1 [facility] Comment on above: Order Comment: 107.1 Performed By: #### L 500.4050, L101.9900, L100.0500 #### [facility] [address] [place], [address] Eosinophils/100 WBC (Bld) 6.3 % High 0-5 [facility] Comment on above: Order Comment: 107.1 Performed By: #### L 500.4050, L101.9900, L100.0500 #### [facility] [address] [place], [address] Erythrocyte distribution width (RBC) [Ratio] 17.1 % High 11.6-14.6 [facility] Comment on above: Order Comment: 107.1 Performed By: #### L 500.4050, L101.9900, L100.0500 #### [facility] [address] [place], [address] Hematocrit (Bld) [Volume fraction] 29.8 % Low 37-47 [facility] Comment on above: Order Comment: 107.1 Performed By: #### L 500.4050, L101.9900, L100.0500 #### [facility] [address] [place], [address] Hemoglobin (Bld) [Mass/Vol] 9.4 g/dL Low 12.0-15.0 [facility] Comment on above: Order Comment: 107.1 Performed By: #### L 500.4050, L101.9900, L100.0500 #### [facility] [address] [place], [address] IG% 1.100 High 0.0-0.9 [facility] Comment on above: Order Comment: 107.1 Result Comment: IG% - Immature Granulocytes (promyelocytes, myelocytes and metamyelocytes) > 1% indicates that a LEFT SHIFT is Present. Performed By: #### L 500.4050, L101.9900, L100.0500 #### [facility] [address] [place], [address] Lymphocytes/100 WBC (Bld) 11.9 % Low 19-41 [facility] Comment on above: Order Comment: 107.1 Performed By: #### L 500.4050, L101.9900, L100.0500 #### [facility] [address] [place], [address] MCH (RBC) [Entitic mass] 28.4 pg Normal 27.0-32.0 [facility] Comment on above: Order Comment: 107.1 Performed By: #### L 500.4050, L101.9900, L100.0500 #### [facility] [address] [place], [address] MCHC (RBC) [Mass/Vol] 31.5 g/dL Low 32-36 [facility] Comment on above: Order Comment: 107.1 Performed By: #### L 500.4050, L101.9900, L100.0500 #### [facility] [address] [place], [address] MCV (RBC) [Entitic vol] 90.0 fL Normal 81-99 [facility] Comment on above: Order Comment: 107.1 Performed By: #### L 500.4050, L101.9900, L100.0500 #### [facility] [address] [place], [address] Monocytes/100 WBC (Bld) 7.5 % Normal 0-10 [facility] Comment on above: Order Comment: 107.1 Performed By: #### L 500.4050, L101.9900, L100.0500 #### [facility] [address] [place], [address] Neutrophils/100 WBC (Bld) 72.9 % High 47-70 [facility] Comment on above: Order Comment: 107.1 Performed By: #### L 500.4050, L101.9900, L100.0500 #### [facility] [address] [place], [address] Nucleated RBC (Bld) [#/Vol] 0 10*3/uL Normal 0-5 [facility] Comment on above: Order Comment: 107.1 Performed By: #### L 500.4050, L101.9900, L100.0500 #### [facility] [address] [place], [address] Platelet mean volume (Bld) [Entitic vol] 9.2 fL Normal 6.2-12.0 [facility] Comment on above: Order Comment: 107.1 Performed By: #### L 500.4050, L101.9900, L100.0500 #### [facility] [address] [place], [address] Platelets (Bld) [#/Vol] 361 10*3/uL Normal 150-450 [facility] Comment on above: Order Comment: 107.1 Performed By: #### L 500.4050, L101.9900, L100.0500 #### [facility] [address] [place], [address] RBC (Bld) [#/Vol] 3.31 10*6/uL Low 4.2-5.4 [facility] Comment on above: Order Comment: 107.1 Performed By: #### L 500.4050, L101.9900, L100.0500 #### [facility] [address] [place], [address] RDW SD 56.3 fl High 35.1-43.9 [facility] Comment on above: Order Comment: 107.1 Performed By: #### L 500.4050, L101.9900, L100.0500 #### [facility] [address] [place], [address] WBC (Bld) [#/Vol] 7.4 10*3/uL Normal 4.4-11.0 [facility] Comment on above: Order Comment: 107.1 Performed By: #### L 500.4050, L101.9900, L100.0500 #### [facility] [address] [place], [address] Carbon dioxide measurementOr dered By: Mario Mak on 2024 CO2 [Moles/Vol] 28.0 mmol/L 21.0-32.0 [facility] Chloride measurementOrdered By: Mario Mak on 2024 Chloride [Moles/Vol] 102 mmol/L 98-107 [facility] Comprehensive Metabolic Prof ilon 2024 Albumin [Mass/Vol] 2.1 g/dL Low 3.2-5.0 [facility] Comment on above: Order Comment: 107.1 Performed By: #### L 500.4050, L101.9900, L100.0500 #### [facility] [address] [place], [address] Albumin/Globulin [Mass ratio] 0.7 {ratio} Low 0.9-2.4 [facility] Comment on above: Order Comment: 107.1 Performed By: #### L 500.4050, L101.9900, L100.0500 #### [facility] [address] [place], [address] ALK P 102 U/L Normal 45-117 [facility] Comment on above: Order Comment: 107.1 Performed By: #### L 500.4050, L101.9900, L100.0500 #### [facility] [address] [place], [address] ALT [Catalytic activity/Vol] U/L Low 13-56 [facility] Comment on above: Order Comment: 107.1 Performed By: #### L 500.4050, L101.9900, L100.0500 #### [facility] [address] [place], [address] AST [Catalytic activity/Vol] 15 U/L Normal 15-37 [facility] Comment on above: Order Comment: 107.1 Performed By: #### L 500.4050, L101.9900, L100.0500 #### [facility] [address] [place], [address] Bilirubin [Mass/Vol] 0.30 mg/dL Normal 0.20-1.00 [facility] Comment on above: Order Comment: 107.1 Result Comment: For patients on eltrombopag therapy, use of Dimension [place] TBIL is not recommended. Performed By: #### L 500.4050, L101.9900, L100.0500 #### [facility] [address] [place], [address] BUN/CRE 30.9 RATIO High 10-20 [facility] Comment on above: Order Comment: 107.1 Performed By: #### L 500.4050, L101.9900, L100.0500 #### [facility] [address] [place], [address] CA,Total 8.7 mg/dL Normal 8.5-10.1 [facility] Comment on above: Order Comment: 107.1 Performed By: #### L 500.4050, L101.9900, L100.0500 #### [facility] [address] [place], [address] Chloride [Moles/Vol] 102 mmol/L Normal 98-107 [facility] Comment on above: Order Comment: 107.1 Performed By: #### L 500.4050, L101.9900, L100.0500 #### [facility] [address] [place], [address] CO2 [Moles/Vol] 28.0 mmol/L Normal 21.0-32.0 [facility] Comment on above: Order Comment: 107.1 Performed By: #### L 500.4050, L101.9900, L100.0500 #### [facility] [address] [place], [address] Creatinine [Mass/Vol] 0.87 mg/dL Normal 0.55-1.02 [facility] Comment on above: Order Comment: 107.1 Result Comment: The validity of the calculated GFR GFRAA in patients over 70 years has not been determined. Clinical correlation is essential. Performed By: #### L 500.4050, L101.9900, L100.0500 #### [facility] [address] [place], [address] EST GFR - AA 79 mL/min Normal >60 [facility] Comment on above: Order Comment: 107.1 Result Comment: Afri can [place] GFR Calc Performed By: #### L 500.4050, L101.9900, L100.0500 #### [facility] [address] [place], [address] GAP 7 Normal 5-15 [facility] Comment on above: Order Comment: 107.1 Performed By: #### L 500.4050, L101.9900, L100.0500 #### [facility] [address] [place], [address] GFR/1.73 sq M.predicted among non-blacks MDRD (S/P/Bld) [Vol rate/Area] 65 mL/min/{1.73_m2} Normal >60 [facility] Comment on above: Order Comment: 107.1 Result Comment: Non- GFR Calc Performed By: #### L 500.4050, L101.9900, L100.0500 #### [facility] [address] [place], [address] Globulin (S) [Mass/Vol] 3.1 g/dL Normal 2.2-4.2 [facility] Comment on above: Order Comment: 107.1 Performed By: #### L 500.4050, L101.9900, L100.0500 #### [facility] [address] [place], [address] Glucose [Mass/Vol] 192 mg/dL High 74-106 [facility] Comment on above: Order Comment: 107.1 Result Comment: Fast ing Glucose result greater than or equal to 126 mg/dL suggests DIABETES MELLITUS per A.D.A. criteria. Performed By: #### L 500.4050, L101.9900, L100.0500 #### [facility] [address] [place], [address] Potassium [Moles/Vol] 3.9 mmol/L Normal 3.5-5.1 [facility] Comment on above: Order Comment: 107.1 Performed By: #### L 500.4050, L101.9900, L100.0500 #### [facility] [address] [place], [address] Sodium [Moles/Vol] 137 mmol/L Normal 136-145 [facility] Comment on above: Order Comment: 107.1 Performed By: #### L 500.4050, L101.9900, L100.0500 #### [facility] [address] [place], [address] T PROT 5.2 g/dL Low 6.4-8.2 [facility] Comment on above: Order Comment: 107.1 Performed By: #### L 500.4050, L101.9900, L100.0500 #### [facility] [address] [place], [address] Urea nitrogen [Mass/Vol] 27 mg/dL High 7-18 [facility] Comment on above: Order Comment: 107.1 Performed By: #### L 500.4050, L101.9900, L100.0500 #### [facility] [address] [place], [address] Eosinophil percentageOrdered By: Mario Mak on 2024 Eosinophils/100 WBC (Bld) 6.3 % High 0-5 [facility] Erythrocyte Sed Rateon 12-31 SED RATE 27 mm/hr Normal 0-30 [facility] Comment on above: Order Comment: 107.1 Performed By: #### L 500.4050, L101.9900, L100.0500 #### [facility] [address] [place], [address] Erythrocyte distribution wid th (RBC) [Ratio]Ordered By: Mario Mak on 2024 Erythrocyte distribution width (RBC) [Entitic vol] 56.3 fL High 35.1-43.9 [facility] Erythrocyte distribution wid th ratioOrdered By: Mario Mak on 2024 Erythrocyte distribution width (RBC) [Ratio] 17.1 % High 11.6-14.6 [facility] Erythrocyte distribution wid th standard deviationOrdered By: Mario Mak on 2024 Erythrocyte distribution width (RBC) [Ratio] 56.3 fl High 35.1-43.9 [facility] Erythrocyte sedimentation ra teOrdered By: Mario Mka on 2024 ESR (Bld) [Velocity] 27 mm/h 0-30 [facility] Estimated glomerular filtrat ion rate (GFR) AmericanOrdered By: Mario Mak on 2024 Estimated GFR (MDRD) Amer 79 mL/min >60 [facility] Comment on above: GFR Calc Glomerular filtration rate ( GFR) estimationOrdered By: Mario Mak on 2024 Estimated GFR (MDRD) Non-Af Amer 65 mL/min >60 [facility] Comment on above: Non- GFR Calc GFR/1.73 sq M.predicted among non-blacks MDRD (S/P/Bld) [Vol rate/Area] 65 mL/min/{1.73_m2} >60 [facility] Comment on above: Non- GFR Calc Glucose measurementOrdered B y: Mario Mak on 2024 Glucose [Mass/Vol] 192 mg/dL High 74-106 [facility] Comment on above: Fasting Glucose resu lt greater than or equal to 126 mg/dL suggests DIABETES MELLITUS per A.D.A. criteria. Hematocrit Auto (Bld) [Volum e fraction]Ordered By: Mario Mak on 2024 Hematocrit (Bld) [Volume fraction] 29.8 % Low 37-47 [facility] Hemoglobin measurementOrdere d By: Mario Mak on 2024 Hemoglobin (Bld) [Mass/Vol] 9.4 g/dL Low 12.0-15.0 [facility] Immature granulocytes/100 WB C Auto (Bld)Ordered By: Mario Mak on 2024 Immature granulocytes/100 WBC (Bld) 1.100 % High 0.0-0.9 [facility] Comment on above: IG% - Immature Granu locytes (promyelocytes, myelocytes and metamyelocytes) > 1% indicates that a LEFT SHIFT is Present. Laboratory - Chemistry and C hemistry - challengeOrdered By: Mario Mak on 2024 AST [Catalytic activity/Vol] 15 U/L 15-37 [facility] Lymphocytes Auto (Unsp spec) [#/Vol]Ordered By: Mario Mak on 2024 Lymphocytes (Bld) [#/Vol] 0.88 10*3/uL 0.83-4.51 [facility] Lymphocytes/100 WBC Auto (Un sp spec)Ordered By: Mario Mak on 2024 Lymphocytes/100 WBC (Bld) 11.9 % Low 19-41 [facility] MCV (mean corpuscular volume ) determinationOrdered By: Mario Mak on 2024 MCV (RBC) [Entitic vol] 90.0 fL 81-99 [facility] Mean corpuscular hemoglobin (MCH) determinationOrdered By: Mario Mak on 2024 MCH (RBC) [Entitic mass] 28.4 pg 27.0-32.0 [facility] Mean corpuscular hemoglobin concentration (MCHC) determinationOrdered By: Mario Mak on 2024 MCHC (RBC) [Mass/Vol] 31.5 g/dL Low 32-36 [facility] Mean platelet volume determi nationOrdered By: Mario Mak on 2024 Platelet mean volume (Bld) [Entitic vol] 9.2 fL 6.2-12.0 [facility] Monocyte percentageOrdered B y: Mario Mak on 2024 Monocytes/100 WBC (Bld) 7.5 % 0-10 [facility] Neutrophil percentageOrdered By: Mario Mak on 2024 Neutrophils/100 WBC (Bld) 72.9 % High 47-70 [facility] Nucleated red blood cell per centageOrdered By: Mario Mak on 2024 Nucleated RBC/100 WBC (Bld) [Ratio] 0 % 0-5 [facility] Platelet countOrdered By: Moreno on 2024 Platelets (Bld) [#/Vol] 361 10*3/uL 150-450 [facility] Potassium measurementOrdered By: Mario Mak on 2024 Potassium [Moles/Vol] 3.9 mmol/L 3.5-5.1 [facility] RBC Auto (Bld) [#/Vol]Ordere d By: Mario Mak on 2024 RBC (Bld) [#/Vol] 3.31 10*6/uL Low 4.2-5.4 [facility] Serum anion gap measurementO rdered By: Mario Mak on 2024 Anion gap [Moles/Vol] 7 mmol/L 5-15 [facility] Serum globulin measurementOr dered By: Mario Mak on 2024 Globulin (S) [Mass/Vol] 3.1 g/dL 2.2-4.2 [facility] Serum or plasma alanine melara otransferase (ALT) measurementOrdered By: Mario Mak on 2024 ALT [Catalytic activity/Vol] U/L Low 13-56 [facility] Serum or plasma albumin roma urement (mass/volume)Ordered By: Mario Mak on 2024 Albumin [Mass/Vol] 2.1 g/dL Low 3.2-5.0 [facility] Serum or plasma alkaline krystal sphatase measurementOrdered By: Mario Mak on 2024 ALP [Catalytic activity/Vol] 102 U/L 45-117 [facility] Serum or plasma calcium roma urement (mass/volume)Ordered By: Mario Mak on 2024 Calcium [Mass/Vol] 8.7 mg/dL 8.5-10.1 [facility] Serum or plasma creatinine m easurement (mass/volume)Ordered By: Mario Mak on 2024 Creatinine [Mass/Vol] 0.87 mg/dL 0.55-1.02 [facility] Comment on above: The validity of the calculated GFR & GFRAA in patients over 70 years has not been determined. Clinical correlation is essential. Serum or plasma urea nitroge n measurement (mass/volume)Ordered By: Mario Mak on 2024 Urea nitrogen [Mass/Vol] 27 mg/dL High 7-18 [facility] Sodium levelOrdered By: Mario Mak on 2024 Sodium [Moles/Vol] 137 mmol/L 136-145 [facility] Total proteinOrdered By: Shwetha Mak on 2024 Protein [Mass/Vol] 5.2 g/dL Low 6.4-8.2 [facility] White blood cell (WBC) count Ordered By: Mario Mak on 2024 WBC (Bld) [#/Vol] 7.4 10*3/uL 4.4-11.0 [facility] CNOVon 12-26-2024 CNOV Normal [facility] CNPNon 12-26-2024 DRAKEN Telephone (INTMIN) YUSUF MEDINA ([id number]) 1935 [address] Date Time Provider Department 12/26/24 MIGDALIA CRAMER During your visit today, we recorded the following information about you: Nikia Trinidad 12/26/2024 9:24 AM Signed Patients caregiver demetria tapia calling to have her [employer] message she sent below addressed. Yusuf Robles's sons and are in town to make an assessment whether she is able to go home from rehab. Can you talk with them to help with their decision? Please call Nathaniel Medina at [phone]. They are here till Tuesday 12 noon. [...] 12/26/2024 2:46 PM Signed Noted Willie Kaur APRN.DETENTION SERGEANT Allergies As of Date: 12/26/2024 (No Known [...] patient by: CAREGIVER José Miguel Sky [facility] Problem List As Of Date 12/26/2024 Noted [...] 02/19/2011 02/12/2014 (more content not included)... Normal [facility] Absolute lymphocyte countOrd ered By: Mario Mak on 12-24-2024 Lymphocytes Auto (Unsp spec) [#/Vol] 0.98 10*3/uL 0.83-4.51 [facility] Absolute neutrophil countOrd ered By: Mario Mak on 12-24-2024 Neutrophils (Bld) [#/Vol] 3.8 10*3/uL 2.0-7.7 [facility] Albumin to globulin ratioOrd ered By: Mario Mak on 12-24-2024 Albumin/Globulin [Mass ratio] 0.6 {ratio} Low 0.9-2.4 [facility] Automated lymphocyte count a s percentage of total leukocytesOrdered By: Mario Mak on 12-24-2024 Lymphocytes/100 WBC Auto (Unsp spec) 17.8 % Low 19-41 [facility] Basophil percentageOrdered B y: Mario Mak on 12-24-2024 Basophils/100 WBC (Bld) 0.5 % 0-1 [facility] Bilirubin, totalOrdered By: Mario Mak on 12-24-2024 Bilirubin [Mass/Vol] 0.30 mg/dL 0.20-1.00 [facility] Comment on above: For patients on eltr ombopag therapy, use of Dimension [place] TBIL is not recommended. Blood urea nitrogen (BUN)/cr eatinine ratioOrdered By: Mario Mak on 12-24-2024 Urea nitrogen/Creatinine [Mass ratio] 30.0 mg/mg High 10-20 [facility] CBC W/Diff, Automatedon 12-15 Absolute Lymph 0.98 X10 3/uL Normal 0.83-4.51 [facility] Comment on above: Order Comment: 107.1 Performed By: #### L 503.6030, L503.0105, L506.0250, L500.4050, L100.0100, L101.9900 #### [facility] [address] [place], [address] Absolute Neut 3.8 X10 3/uL Normal 2.0-7.7 [facility] Comment on above: Order Comment: 107.1 Performed By: #### L 503.6030, L503.0105, L506.0250, L500.4050, L100.0100, L101.9900 #### [facility] [address] [place], [address] Basophils/100 WBC (Bld) 0.5 % Normal 0-1 [facility] Comment on above: Order Comment: 107.1 Performed By: #### L 503.6030, L503.0105, L506.0250, L500.4050, L100.0100, L101.9900 #### [facility] [address] [place], [address] Eosinophils/100 WBC (Bld) 5.1 % High 0-5 [facility] Comment on above: Order Comment: 107.1 Performed By: #### L 503.6030, L503.0105, L506.0250, L500.4050, L100.0100, L101.9900 #### [facility] [address] [place], [address] Erythrocyte distribution width (RBC) [Ratio] 16.8 % High 11.6-14.6 [facility] Comment on above: Order Comment: 107.1 Performed By: #### L 503.6030, L503.0105, L506.0250, L500.4050, L100.0100, L101.9900 #### [facility] [address] [place], [address] Hematocrit (Bld) [Volume fraction] 27.5 % Low 37-47 [facility] Comment on above: Order Comment: 107.1 Performed By: #### L 503.6030, L503.0105, L506.0250, L500.4050, L100.0100, L101.9900 #### [facility] [address] [place], [address] Hemoglobin (Bld) [Mass/Vol] 8.9 g/dL Low 12.0-15.0 [facility] Comment on above: Order Comment: 107.1 Performed By: #### L 503.6030, L503.0105, L506.0250, L500.4050, L100.0100, L101.9900 #### [facility] [address] [place], [address] IG% 0.900 Normal 0.0-0.9 [facility] Comment on above: Order Comment: 107.1 Result Comment: IG% - Immature Granulocytes (promyelocytes, myelocytes and metamyelocytes) > 1% indicates that a LEFT SHIFT is Present. Performed By: #### L 503.6030, L503.0105, L506.0250, L500.4050, L100.0100, L101.9900 #### [facility] [address] [place], [address] Lymphocytes/100 WBC (Bld) 17.8 % Low 19-41 [facility] Comment on above: Order Comment: 107.1 Performed By: #### L 503.6030, L503.0105, L506.0250, L500.4050, L100.0100, L101.9900 #### [facility] [address] [place], [address] MCH (RBC) [Entitic mass] 29.0 pg Normal 27.0-32.0 [facility] Comment on above: Order Comment: 107.1 Performed By: #### L 503.6030, L503.0105, L506.0250, L500.4050, L100.0100, L101.9900 #### [facility] [address] [place], [address] MCHC (RBC) [Mass/Vol] 32.4 g/dL Normal 32-36 [facility] Comment on above: Order Comment: 107.1 Performed By: #### L 503.6030, L503.0105, L506.0250, L500.4050, L100.0100, L101.9900 #### [facility] [address] [place], [address] MCV (RBC) [Entitic vol] 89.6 fL Normal 81-99 [facility] Comment on above: Order Comment: 107.1 Performed By: #### L 503.6030, L503.0105, L506.0250, L500.4050, L100.0100, L101.9900 #### [facility] [address] [place], [address] Monocytes/100 WBC (Bld) 7.3 % Normal 0-10 [facility] Comment on above: Order Comment: 107.1 Performed By: #### L 503.6030, L503.0105, L506.0250, L500.4050, L100.0100, L101.9900 #### [facility] [address] [place], [address] Neutrophils/100 WBC (Bld) 68.4 % Normal 47-70 [facility] Comment on above: Order Comment: 107.1 Performed By: #### L 503.6030, L503.0105, L506.0250, L500.4050, L100.0100, L101.9900 #### [facility] [address] [place], [address] Nucleated RBC (Bld) [#/Vol] 0 10*3/uL Normal 0-5 [facility] Comment on above: Order Comment: 107.1 Performed By: #### L 503.6030, L503.0105, L506.0250, L500.4050, L100.0100, L101.9900 #### [facility] [address] [place], [address] Platelet mean volume (Bld) [Entitic vol] 9.3 fL Normal 6.2-12.0 [facility] Comment on above: Order Comment: 107.1 Performed By: #### L 503.6030, L503.0105, L506.0250, L500.4050, L100.0100, L101.9900 #### [facility] [address] [place], [address] Platelets (Bld) [#/Vol] 309 10*3/uL Normal 150-450 [facility] Comment on above: Order Comment: 107.1 Performed By: #### L 503.6030, L503.0105, L506.0250, L500.4050, L100.0100, L101.9900 #### [facility] [address] [place], [address] RBC (Bld) [#/Vol] 3.07 10*6/uL Low 4.2-5.4 [facility] Comment on above: Order Comment: 107.1 Performed By: #### L 503.6030, L503.0105, L506.0250, L500.4050, L100.0100, L101.9900 #### [facility] [address] [place], [address] RDW SD 55.5 fl High 35.1-43.9 [facility] Comment on above: Order Comment: 107.1 Performed By: #### L 503.6030, L503.0105, L506.0250, L500.4050, L100.0100, L101.9900 #### [facility] [address] [place], [address] WBC (Bld) [#/Vol] 5.5 10*3/uL Normal 4.4-11.0 [facility] Comment on above: Order Comment: 107.1 Performed By: #### L 503.6030, L503.0105, L506.0250, L500.4050, L100.0100, L101.9900 #### [facility] [address] [place], [address] Carbon dioxide measurementOr dered By: Mario Mak on 12-24-2024 CO2 [Moles/Vol] 29.0 mmol/L 21.0-32.0 [facility] Chloride measurementOrdered By: Mario Mak on 12-24-2024 Chloride [Moles/Vol] 106 mmol/L 98-107 [facility] Comprehensive Metabolic Prof ilon 12-24-2024 Albumin [Mass/Vol] 2.0 g/dL Low 3.2-5.0 [facility] Comment on above: Order Comment: 107.1 Performed By: #### L 503.6030, L503.0105, L506.0250, L500.4050, L100.0100, L101.9900 #### [facility] [address] [place], [address] Albumin/Globulin [Mass ratio] 0.6 {ratio} Low 0.9-2.4 [facility] Comment on above: Order Comment: 107.1 Performed By: #### L 503.6030, L503.0105, L506.0250, L500.4050, L100.0100, L101.9900 #### [facility] [address] [place], [address] ALK P 108 U/L Normal 45-117 [facility] Comment on above: Order Comment: 107.1 Performed By: #### L 503.6030, L503.0105, L506.0250, L500.4050, L100.0100, L101.9900 #### [facility] [address] [place], [address] ALT [Catalytic activity/Vol] U/L Low 13-56 [facility] Comment on above: Order Comment: 107.1 Performed By: #### L 503.6030, L503.0105, L506.0250, L500.4050, L100.0100, L101.9900 #### [facility] [address] [place], [address] AST [Catalytic activity/Vol] 17 U/L Normal 15-37 [facility] Comment on above: Order Comment: 107.1 Performed By: #### L 503.6030, L503.0105, L506.0250, L500.4050, L100.0100, L101.9900 #### [facility] [address] [place], [address] Bilirubin [Mass/Vol] 0.30 mg/dL Normal 0.20-1.00 [facility] Comment on above: Order Comment: 107.1 Result Comment: For patients on eltrombopag therapy, use of Dimension [place] TBIL is not recommended. Performed By: #### L 503.6030, L503.0105, L506.0250, L500.4050, L100.0100, L101.9900 #### [facility] [address] [place], [address] BUN/CRE 30.0 RATIO High 10-20 [facility] Comment on above: Order Comment: 107.1 Performed By: #### L 503.6030, L503.0105, L506.0250, L500.4050, L100.0100, L101.9900 #### [facility] [address] [place], [address] CA,Total 8.8 mg/dL Normal 8.5-10.1 [facility] Comment on above: Order Comment: 107.1 Performed By: #### L 503.6030, L503.0105, L506.0250, L500.4050, L100.0100, L101.9900 #### [facility] [address] [place], [address] Chloride [Moles/Vol] 106 mmol/L Normal 98-107 [facility] Comment on above: Order Comment: 107.1 Performed By: #### L 503.6030, L503.0105, L506.0250, L500.4050, L100.0100, L101.9900 #### [facility] [address] [place], [address] CO2 [Moles/Vol] 29.0 mmol/L Normal 21.0-32.0 [facility] Comment on above: Order Comment: 107.1 Performed By: #### L 503.6030, L503.0105, L506.0250, L500.4050, L100.0100, L101.9900 #### [facility] [address] [place], [address] Creatinine [Mass/Vol] 0.83 mg/dL Normal 0.55-1.02 [facility] Comment on above: Order Comment: 107.1 Result Comment: The validity of the calculated GFR GFRAA in patients over 70 years has not been determined. Clinical correlation is essential. Performed By: #### L 503.6030, L503.0105, L506.0250, L500.4050, L100.0100, L101.9900 #### [facility] [address] [place], [address] EST GFR - AA 83 mL/min Normal >60 [facility] Comment on above: Order Comment: 107.1 Result Comment: Afri can Bulgarian GFR Calc Performed By: #### L 503.6030, L503.0105, L506.0250, L500.4050, L100.0100, L101.9900 #### [facility] [address] [place], [address] GAP 7 Normal 5-15 [facility] Comment on above: Order Comment: 107.1 Performed By: #### L 503.6030, L503.0105, L506.0250, L500.4050, L100.0100, L101.9900 #### [facility] [address] [place], [address] GFR/1.73 sq M.predicted among non-blacks MDRD (S/P/Bld) [Vol rate/Area] 68 mL/min/{1.73_m2} Normal >60 [facility] Comment on above: Order Comment: 107.1 Result Comment: Non- GFR Calc Performed By: #### L 503.6030, L503.0105, L506.0250, L500.4050, L100.0100, L101.9900 #### [facility] [address] [place], [address] Globulin (S) [Mass/Vol] 3.4 g/dL Normal 2.2-4.2 [facility] Comment on above: Order Comment: 107.1 Performed By: #### L 503.6030, L503.0105, L506.0250, L500.4050, L100.0100, L101.9900 #### [facility] [address] [place], [address] Glucose [Mass/Vol] 76 mg/dL Normal 74-106 [facility] Comment on above: Order Comment: 107.1 Performed By: #### L 503.6030, L503.0105, L506.0250, L500.4050, L100.0100, L101.9900 #### [facility] [address] [place], [address] Potassium [Moles/Vol] 4.0 mmol/L Normal 3.5-5.1 [facility] Comment on above: Order Comment: 107.1 Performed By: #### L 503.6030, L503.0105, L506.0250, L500.4050, L100.0100, L101.9900 #### [facility] [address] [place], [address] Sodium [Moles/Vol] 141 mmol/L Normal 136-145 [facility] Comment on above: Order Comment: 107.1 Performed By: #### L 503.6030, L503.0105, L506.0250, L500.4050, L100.0100, L101.9900 #### [facility] [address] [place], [place], [address] T PROT 5.4 g/dL Low 6.4-8.2 [facility] Comment on above: Order Comment: 107.1 Performed By: #### L 503.6030, L503.0105, L506.0250, L500.4050, L100.0100, L101.9900 #### [facility] [address] [place], [place], [address] Urea nitrogen [Mass/Vol] 25 mg/dL High 7-18 [facility] Comment on above: Order Comment: 107.1 Performed By: #### L 503.6030, L503.0105, L506.0250, L500.4050, L100.0100, L101.9900 #### [facility] [address] [place], [place], [address] Eosinophil percentageOrdered By: Mario Mak on 12-24-2024 Eosinophils/100 WBC (Bld) 5.1 % High 0-5 [facility] Erythrocyte Sed Rateon 12-24 SED RATE 38 mm/hr High 0-30 [facility] Comment on above: Order Comment: 107.1 Performed By: #### L 503.6030, L503.0105, L506.0250, L500.4050, L100.0100, L101.9900 #### [facility] [address] [place], [place], [address] Erythrocyte distribution wid th (RBC) [Ratio]Ordered By: Mario Mka on 12-24-2024 Erythrocyte distribution width (RBC) [Entitic vol] 55.5 fL High 35.1-43.9 [facility] Erythrocyte distribution wid th ratioOrdered By: Mario Mak on 12-24-2024 Erythrocyte distribution width (RBC) [Ratio] 16.8 % High 11.6-14.6 [facility] Erythrocyte distribution wid th standard deviationOrdered By: Mario Mak on 12-24-2024 Erythrocyte distribution width (RBC) [Ratio] 55.5 fl High 35.1-43.9 [facility] Erythrocyte sedimentation ra teOrdered By: Mario Mak on 12-24-2024 ESR (Bld) [Velocity] 38 mm/h High 0-30 [facility] Estimated glomerular filtrat ion rate (GFR) AmericanOrdered By: Mario Mak on 12-24-2024 Estimated GFR (MDRD) Amer 83 mL/min >60 [facility] Comment on above: GFR Calc Folates, (Folic Acid)on 12-15 FOLATES 6.70 ng/mL Normal 3.1-55.4 [facility] Comment on above: Order Comment: 107.1 N Performed By: #### L 503.6030, L503.0105, L506.0250, L500.4050, L100.0100, L101.9900 #### [facility] [place], [address] Folic acid measurementOrdere d By: Mario Mak on 12-24-2024 Folate 6.70 ng/mL 3.1-55.4 [facility] Glomerular filtration rate ( GFR) estimationOrdered By: Mario Mak on 12-24-2024 Estimated GFR (MDRD) Non-Af Amer 68 mL/min >60 [facility] Comment on above: Non- GFR Calc GFR/1.73 sq M.predicted among non-blacks MDRD (S/P/Bld) [Vol rate/Area] 68 mL/min/{1.73_m2} >60 [facility] Comment on above: Non- GFR Calc Glucose measurementOrdered B y: Mario Mak on 12-24-2024 Glucose [Mass/Vol] 76 mg/dL 74-106 [facility] Hematocrit Auto (Bld) [Volum e fraction]Ordered By: Mario Mak on 12-24-2024 Hematocrit (Bld) [Volume fraction] 27.5 % Low 37-47 [facility] Hemoglobin measurementOrdere d By: Mario Mak on 12-24-2024 Hemoglobin (Bld) [Mass/Vol] 8.9 g/dL Low 12.0-15.0 [facility] Immature granulocytes/100 WB C Auto (Bld)Ordered By: Mario Mak on 12-24-2024 Immature granulocytes/100 WBC (Bld) 0.900 % 0.0-0.9 [facility] Comment on above: IG% - Immature Granu locytes (promyelocytes, myelocytes and metamyelocytes) > 1% indicates that a LEFT SHIFT is Present. Iron (Unsp spec) [Mass/Mass] Ordered By: Mario Mak on 12-24-2024 Iron [Mass/Vol] 58 ug/dL 50-170 [facility] Iron measurement (mass/mass) Ordered By: Mario Mak on 12-24-2024 Iron (Unsp spec) [Mass/Mass] 58 ug/dL 50-170 [facility] Iron saturation [Mass fracti on]Ordered By: Mario Mak on 12-24-2024 Iron Saturation 35.4 % 15.0-55.0 [facility] Iron+Iron Binding Capacityon 12-24-2024 Iron [Mass/Vol] 58 ug/dL Normal 50-170 [facility] Comment on above: Order Comment: 107.1 Performed By: #### L 503.6030, L503.0105, L506.0250, L500.4050, L100.0100, L101.9900 #### [facility] [address] [facility] [place], [place], [id number] (392 IRON SATURATION 35.4 Normal 15.0-55.0 [facility] Comment on above: Order Comment: 107.1 Performed By: #### L 503.6030, L503.0105, L506.0250, L500.4050, L100.0100, L101.9900 #### [facility] [address] [place], [address] TIBC 164 ug/dL Low 250-450 [facility] Comment on above: Order Comment: 107.1 Performed By: #### L 503.6030, L503.0105, L506.0250, L500.4050, L100.0100, L101.9900 #### [facility] [place] [address], [address] Laboratory - Chemistry and C hemistry - challengeOrdered By: Mario Mak on 12-24-2024 AST [Catalytic activity/Vol] 17 U/L 15-37 [facility] Lymphocytes Auto (Unsp spec) [#/Vol]Ordered By: Mario Mak on 12-24-2024 Lymphocytes (Bld) [#/Vol] 0.98 10*3/uL 0.83-4.51 [facility] Lymphocytes/100 WBC Auto (Un sp spec)Ordered By: Mario Mak on 12-24-2024 Lymphocytes/100 WBC (Bld) 17.8 % Low 19-41 [facility] MCV (mean corpuscular volume ) determinationOrdered By: Mario Mak on 12-24-2024 MCV (RBC) [Entitic vol] 89.6 fL 81-99 [facility] Mean corpuscular hemoglobin (MCH) determinationOrdered By: Mario Mak on 12-24-2024 MCH (RBC) [Entitic mass] 29.0 pg 27.0-32.0 [facility] Mean corpuscular hemoglobin concentration (MCHC) determinationOrdered By: Mario Mak on 12-24-2024 MCHC (RBC) [Mass/Vol] 32.4 g/dL 32-36 [facility] Mean platelet volume determi nationOrdered By: Mario Mak on 12-24-2024 Platelet mean volume (Bld) [Entitic vol] 9.3 fL 6.2-12.0 [facility] Monocyte percentageOrdered B y: Mario Mak on 12-24-2024 Monocytes/100 WBC (Bld) 7.3 % 0-10 [facility] Neutrophil percentageOrdered By: aMrio Mak on 12-24-2024 Neutrophils/100 WBC (Bld) 68.4 % 47-70 [facility] Nucleated red blood cell per centageOrdered By: Mario Mak on 12-24-2024 Nucleated RBC/100 WBC (Bld) [Ratio] 0 % 0-5 [facility] Platelet countOrdered By: Moreno on 12-24-2024 Platelets (Bld) [#/Vol] 309 10*3/uL 150-450 [facility] Potassium measurementOrdered By: Mario Mak on 12-24-2024 Potassium [Moles/Vol] 4.0 mmol/L 3.5-5.1 [facility] RBC Auto (Bld) [#/Vol]Ordere d By: Mario Mak on 12-24-2024 RBC (Bld) [#/Vol] 3.07 10*6/uL Low 4.2-5.4 [facility] Serum anion gap measurementO rdered By: Mario Mak on 12-24-2024 Anion gap [Moles/Vol] 7 mmol/L 5-15 [facility] Serum globulin measurementOr dered By: Mario Mak on 12-24-2024 Globulin (S) [Mass/Vol] 3.4 g/dL 2.2-4.2 [facility] Serum or plasma alanine melara otransferase (ALT) measurementOrdered By: Mario Mak on 12-24-2024 ALT [Catalytic activity/Vol] U/L Low 13-56 [facility] Serum or plasma albumin roma urement (mass/volume)Ordered By: Mario Mak on 12-24-2024 Albumin [Mass/Vol] 2.0 g/dL Low 3.2-5.0 [facility] Serum or plasma alkaline krystal sphatase measurementOrdered By: Mario Mak on 12-24-2024 ALP [Catalytic activity/Vol] 108 U/L 45-117 [facility] Serum or plasma calcium roma urement (mass/volume)Ordered By: Mario Mak on 12-24-2024 Calcium [Mass/Vol] 8.8 mg/dL 8.5-10.1 [facility] Serum or plasma creatinine m easurement (mass/volume)Ordered By: Mario Mak on 12-24-2024 Creatinine [Mass/Vol] 0.83 mg/dL 0.55-1.02 [facility] Comment on above: The validity of the calculated GFR & GFRAA in patients over 70 years has not been determined. Clinical correlation is essential. Serum or plasma iron saturat ion measurement (mass fraction)Ordered By: Mario Mak on 12-24-2024 Iron saturation [Mass fraction] 35.4 % 15.0-55.0 [facility] Serum or plasma urea nitroge n measurement (mass/volume)Ordered By: Mario Mak on 12-24-2024 Urea nitrogen [Mass/Vol] 25 mg/dL High 7-18 [facility] Sodium levelOrdered By: Mario Mak on 12-24-2024 Sodium [Moles/Vol] 141 mmol/L 136-145 [facility] TIBCOrdered By: Mario Mak on 12-24-2024 Total Iron Binding Capacity 164 ug/dL Low 250-450 [facility] Total proteinOrdered By: Shwetha Mak on 12-24-2024 Protein [Mass/Vol] 5.4 g/dL Low 6.4-8.2 [facility] Vitamin B12on 12-24-2024 Cobalamin (Vitamin B12) [Mass/Vol] 407 pg/mL Normal 211-911 [facility] Comment on above: Order Comment: 107.1 Performed By: #### L 503.6030, L503.0105, L506.0250, L500.4050, L100.0100, L101.9900 #### [facility] [place], [address] Vitamin B12 measurementOrder ed By: Mario Mak on 12-24-2024 Cobalamin (Vitamin B12) [Mass/Vol] 407 pg/mL 211-911 [facility] White blood cell (WBC) count Ordered By: Mario Mak on 12-24-2024 WBC (Bld) [#/Vol] 5.5 10*3/uL 4.4-11.0 [facility] Albumin to globulin ratioOrd ered By: Mario Mak on 12-17-2024 Albumin/Globulin [Mass ratio] 0.6 {ratio} Low 0.9-2.4 [facility] Bilirubin, totalOrdered By: Mario Mak on 12-17-2024 Bilirubin [Mass/Vol] 0.30 mg/dL 0.20-1.00 [facility] Comment on above: For patients on eltr ombopag therapy, use of Dimension [place] TBIL is not recommended. Blood urea nitrogen (BUN)/cr eatinine ratioOrdered By: Mario Mak on 12-17-2024 Urea nitrogen/Creatinine [Mass ratio] 38.9 mg/mg High 10-20 [facility] CBC-Complete Blood Cnt No Di ffon 12-17-2024 Erythrocyte distribution width (RBC) [Ratio] 17.8 % High 11.6-14.6 [facility] Comment on above: Order Comment: 107.1 Performed By: #### L 500.4050, L101.9900, L100.0500 #### [facility] [address] [place], [address] Hematocrit (Bld) [Volume fraction] 24.9 % Low 37-47 [facility] Comment on above: Order Comment: 107.1 Performed By: #### L 500.4050, L101.9900, L100.0500 #### [facility] [address] [place], [address] Hemoglobin (Bld) [Mass/Vol] 7.7 g/dL Low 12.0-15.0 [facility] Comment on above: Order Comment: 107.1 Performed By: #### L 500.4050, L101.9900, L100.0500 #### [facility] [address] [place], [address] MCH (RBC) [Entitic mass] 28.3 pg Normal 27.0-32.0 [facility] Comment on above: Order Comment: 107.1 Performed By: #### L 500.4050, L101.9900, L100.0500 #### [facility] [address] [place], [address] MCHC (RBC) [Mass/Vol] 30.9 g/dL Low 32-36 [facility] Comment on above: Order Comment: 107.1 Performed By: #### L 500.4050, L101.9900, L100.0500 #### [facility] [address] [place], [address] MCV (RBC) [Entitic vol] 91.5 fL Normal 81-99 [facility] Comment on above: Order Comment: 107.1 Performed By: #### L 500.4050, L101.9900, L100.0500 #### [facility] [address] [place], [address] Platelet mean volume (Bld) [Entitic vol] 8.7 fL Normal 6.2-12.0 [facility] Comment on above: Order Comment: 107.1 Performed By: #### L 500.4050, L101.9900, L100.0500 #### [facility] [address] [place], [address] Platelets (Bld) [#/Vol] 391 10*3/uL Normal 150-450 [facility] Comment on above: Order Comment: 107.1 Performed By: #### L 500.4050, L101.9900, L100.0500 #### [facility] [address] [place], [address] RBC (Bld) [#/Vol] 2.72 10*6/uL Low 4.2-5.4 [facility] Comment on above: Order Comment: 107.1 Performed By: #### L 500.4050, L101.9900, L100.0500 #### [facility] [address] [place], [address] RDW SD 59.4 fl High 35.1-43.9 [facility] Comment on above: Order Comment: 107.1 Performed By: #### L 500.4050, L101.9900, L100.0500 #### [facility] [address] [place], [address] WBC (Bld) [#/Vol] 7.6 10*3/uL Normal 4.4-11.0 [facility] Comment on above: Order Comment: 107.1 Performed By: #### L 500.4050, L101.9900, L100.0500 #### [facility] [address] [place], [address] Carbon dioxide measurementOr dered By: Mario Mak on 12-17-2024 CO2 [Moles/Vol] 25.0 mmol/L 21.0-32.0 [facility] Chloride measurementOrdered By: Mario Mak on 12-17-2024 Chloride [Moles/Vol] 104 mmol/L 98-107 [facility] Comprehensive Metabolic Prof ilon 12-17-2024 Albumin [Mass/Vol] 1.9 g/dL Low 3.2-5.0 [facility] Comment on above: Order Comment: 107.1 Performed By: #### L 500.4050, L101.9900, L100.0500 #### [facility] [address] [place], [address] Albumin/Globulin [Mass ratio] 0.6 {ratio} Low 0.9-2.4 [facility] Comment on above: Order Comment: 107.1 Performed By: #### L 500.4050, L101.9900, L100.0500 #### [facility] [address] [place], [address] ALK P 96 U/L Normal 45-117 [facility] Comment on above: Order Comment: 107.1 Performed By: #### L 500.4050, L101.9900, L100.0500 #### [facility] [address] [place], [address] ALT [Catalytic activity/Vol] 9 U/L Low 13-56 [facility] Comment on above: Order Comment: 107.1 Performed By: #### L 500.4050, L101.9900, L100.0500 #### [facility] [address] [place], [address] AST [Catalytic activity/Vol] 26 U/L Normal 15-37 [facility] Comment on above: Order Comment: 107.1 Performed By: #### L 500.4050, L101.9900, L100.0500 #### [facility] [address] [place], [address] Bilirubin [Mass/Vol] 0.30 mg/dL Normal 0.20-1.00 [facility] Comment on above: Order Comment: 107.1 Result Comment: For patients on eltrombopag therapy, use of [place] TBIL is not recommended. Performed By: #### L 500.4050, L101.9900, L100.0500 #### [facility] [address] [place], [address] BUN/CRE 38.9 RATIO High 10-20 [facility] Comment on above: Order Comment: 107.1 Performed By: #### L 500.4050, L101.9900, L100.0500 #### [facility] [address] [place], [address] CA,Total 8.4 mg/dL Low 8.5-10.1 [facility] Comment on above: Order Comment: 107.1 Performed By: #### L 500.4050, L101.9900, L100.0500 #### [facility] [address] [place], [address] Chloride [Moles/Vol] 104 mmol/L Normal 98-107 [facility] Comment on above: Order Comment: 107.1 Performed By: #### L 500.4050, L101.9900, L100.0500 #### [facility] [address] [place], [address] CO2 [Moles/Vol] 25.0 mmol/L Normal 21.0-32.0 [facility] Comment on above: Order Comment: 107.1 Performed By: #### L 500.4050, L101.9900, L100.0500 #### [facility] [address] [place], [address] Creatinine [Mass/Vol] 0.77 mg/dL Normal 0.55-1.02 [facility] Comment on above: Order Comment: 107.1 Result Comment: The validity of the calculated GFR GFRAA in patients over 70 years has not been determined. Clinical correlation is essential. Performed By: #### L 500.4050, L101.9900, L100.0500 #### [facility] [address] [place], [address] EST GFR - AA 91 mL/min Normal >60 [facility] Comment on above: Order Comment: 107.1 Result Comment: Afri can [place]ian GFR Calc Performed By: #### L 500.4050, L101.9900, L100.0500 #### [facility] [address] [place], [address] GAP 8 Normal 5-15 [facility] Comment on above: Order Comment: 107.1 Performed By: #### L 500.4050, L101.9900, L100.0500 #### [facility] [address] [place], [address] GFR/1.73 sq M.predicted among non-blacks MDRD (S/P/Bld) [Vol rate/Area] 75 mL/min/{1.73_m2} Normal >60 [facility] Comment on above: Order Comment: 107.1 Result Comment: Non- GFR Calc Performed By: #### L 500.4050, L101.9900, L100.0500 #### [facility] [address] [place], [address] Globulin (S) [Mass/Vol] 3.2 g/dL Normal 2.2-4.2 [facility] Comment on above: Order Comment: 107.1 Performed By: #### L 500.4050, L101.9900, L100.0500 #### [facility] [address] [place], [address] Glucose [Mass/Vol] 203 mg/dL High 74-106 [facility] Comment on above: Order Comment: 107.1 Result Comment: Gluc ose result greater than or equal to 200 mg/dL suggests DIABETES MELLITUS per A.D.A. criteria. Performed By: #### L 500.4050, L101.9900, L100.0500 #### [facility] [address] [place], [address] Potassium [Moles/Vol] 4.2 mmol/L Normal 3.5-5.1 [facility] Comment on above: Order Comment: 107.1 Performed By: #### L 500.4050, L101.9900, L100.0500 #### [facility] [address] [place], [address] Sodium [Moles/Vol] 137 mmol/L Normal 136-145 [facility] Comment on above: Order Comment: 107.1 Performed By: #### L 500.4050, L101.9900, L100.0500 #### [facility] [address] [place], [address] T PROT 5.1 g/dL Low 6.4-8.2 [facility] Comment on above: Order Comment: 107.1 Performed By: #### L 500.4050, L101.9900, L100.0500 #### [facility] [address] [place], [address] Urea nitrogen [Mass/Vol] 30 mg/dL High 7-18 [facility] Comment on above: Order Comment: 107.1 Performed By: #### L 500.4050, L101.9900, L100.0500 #### [facility] [address] [place], [place], [address] Erythrocyte Sed Rateon 12-17 SED RATE 24 mm/hr Normal 0-30 [facility] Comment on above: Order Comment: 107.1 Performed By: #### L 500.4050, L101.9900, L100.0500 #### [facility] [address] [place], [address] Erythrocyte distribution wid th (RBC) [Ratio]Ordered By: Mario Mak on 12-17-2024 Erythrocyte distribution width (RBC) [Entitic vol] 59.4 fL High 35.1-43.9 [facility] Erythrocyte distribution wid th ratioOrdered By: Mario Mak on 12-17-2024 Erythrocyte distribution width (RBC) [Ratio] 17.8 % High 11.6-14.6 [facility] Erythrocyte distribution wid th standard deviationOrdered By: Mario Mak on 12-17-2024 Erythrocyte distribution width (RBC) [Ratio] 59.4 fl High 35.1-43.9 [facility] Erythrocyte sedimentation ra teOrdered By: Mario Mak on 12-17-2024 ESR (Bld) [Velocity] 24 mm/h 0-30 [facility] Estimated glomerular filtrat ion rate (GFR) AmericanOrdered By: Mario Mak on 12-17-2024 Estimated GFR (MDRD) Amer 91 mL/min >60 [facility] Comment on above: GFR Calc Glomerular filtration rate ( GFR) estimationOrdered By: Mario Mak on 12-17-2024 Estimated GFR (MDRD) Non-Af Amer 75 mL/min >60 [facility] Comment on above: Non- GFR Calc GFR/1.73 sq M.predicted among non-blacks MDRD (S/P/Bld) [Vol rate/Area] 75 mL/min/{1.73_m2} >60 [facility] Comment on above: Non- GFR Calc Glucose measurementOrdered B y: Mario Mak on 12-17-2024 Glucose [Mass/Vol] 203 mg/dL High 74-106 [facility] Comment on above: Glucose result great er than or equal to 200 mg/dLsuggests DIABETES MELLITUS per A.D.A. criteria. Hematocrit Auto (Bld) [Volum e fraction]Ordered By: Mario Mak on 12-17-2024 Hematocrit (Bld) [Volume fraction] 24.9 % Low 37-47 [facility] Hemoglobin measurementOrdere d By: Mario Mak on 12-17-2024 Hemoglobin (Bld) [Mass/Vol] 7.7 g/dL Low 12.0-15.0 [facility] - Chemistry and C hemistry - challengeOrdered By: Mario Mak on 12-17-2024 AST [Catalytic activity/Vol] 26 U/L 15-37 [facility] MCV (mean corpuscular volume ) determinationOrdered By: Mario Mak on 12-17-2024 MCV (RBC) [Entitic vol] 91.5 fL 81-99 [facility] Mean corpuscular hemoglobin (MCH) determinationOrdered By: Mario Mak on 12-17-2024 MCH (RBC) [Entitic mass] 28.3 pg 27.0-32.0 [facility] Mean corpuscular hemoglobin concentration (MCHC) determinationOrdered By: Mario Mka on 12-17-2024 MCHC (RBC) [Mass/Vol] 30.9 g/dL Low 32-36 [facility] Mean platelet volume determi nationOrdered By: Mario Mak on 12-17-2024 Platelet mean volume (Bld) [Entitic vol] 8.7 fL 6.2-12.0 [facility] Platelet countOrdered By: Moreno on 12-17-2024 Platelets (Bld) [#/Vol] 391 10*3/uL 150-450 [facility] Potassium measurementOrdered By: Mario Mak on 12-17-2024 Potassium [Moles/Vol] 4.2 mmol/L 3.5-5.1 [facility] RBC Auto (Bld) [#/Vol]Ordere d By: Mario Mak on 02-03-2025 RBC (Bld) [#/Vol] 2.72 10*6/uL Low 4.2-5.4 [facility] Serum anion gap measurementO rdered By: Mario Mak on 12-17-2024 Anion gap [Moles/Vol] 8 mmol/L 5-15 [facility] Serum globulin measurementOr dered By: Mario Mak on 12-17-2024 Globulin (S) [Mass/Vol] 3.2 g/dL 2.2-4.2 [facility] Serum or plasma alanine melara otransferase (ALT) measurementOrdered By: Mario Mak on 12-17-2024 ALT [Catalytic activity/Vol] 9 U/L Low 13-56 [facility] Serum or plasma albumin roma urement (mass/volume)Ordered By: Mario Mak on 12-17-2024 Albumin [Mass/Vol] 1.9 g/dL Low 3.2-5.0 [facility] Serum or plasma alkaline krystal sphatase measurementOrdered By: Mario Mak on 12-17-2024 ALP [Catalytic activity/Vol] 96 U/L 45-117 [facility] Serum or plasma calcium roma urement (mass/volume)Ordered By: Mario Mak on 12-17-2024 Calcium [Mass/Vol] 8.4 mg/dL Low 8.5-10.1 [facility] Serum or plasma creatinine m easurement (mass/volume)Ordered By: Mario Mak on 12-17-2024 Creatinine [Mass/Vol] 0.77 mg/dL 0.55-1.02 [facility] Comment on above: The validity of the calculated GFR & GFRAA in patients over 70 years has not been determined. Clinical correlation is essential. Serum or plasma urea nitroge n measurement (mass/volume)Ordered By: Mario Mak on 12-17-2024 Urea nitrogen [Mass/Vol] 30 mg/dL High 7-18 [facility] Sodium levelOrdered By: Mario Mak on 12-17-2024 Sodium [Moles/Vol] 137 mmol/L 136-145 [facility] Total proteinOrdered By: Shwetha Mak on 12-17-2024 Protein [Mass/Vol] 5.1 g/dL Low 6.4-8.2 [facility] White blood cell (WBC) count Ordered By: Mario Mak on 12-17-2024 WBC (Bld) [#/Vol] 7.6 10*3/uL 4.4-11.0 [facility] ANES POSTPROC EVALon 025 ANES POSTPROC EVAL Normal [facility] ANES PRE-OPon 12-12-2024 ANES PRE-OP Normal [facility] BRIEF OP NOTon 12-12-2024 BRIEF OP NOT Normal [facility] Basic metabolic 2000 panelon 12-12-2024 Anion gap [Moles/Vol] 9 mmol/L Normal 8-15 [facility] Comment on above: Order Comment: Speci men Type: BLOOD SPECIMENOrdering Facility: [facility] Address: [address] [place] [address] Performed By: #### 2 4321-2 ####[facility]ORYCLIA [id number] [place] [address] [place] Calcium [Mass/Vol] 8.9 mg/dL Normal 8.5-10.2 [facility] Comment on above: Order Comment: Speci men Type: BLOOD SPECIMENOrdering Facility: [facility] Address: [address] [place] [address] Performed By: #### 2 4321-2 ####[facility]ORATORYCLIA [id number] [place] [address] [place] Chloride [Moles/Vol] 104 mmol/L Normal 98-107 [facility] Comment on above: Order Comment: Speci men Type: BLOOD SPECIMENOrdering Facility: [facility] Address: [address] [place] [address] Performed By: #### 2 4321-2 ####[facility]ORATORYCLIA [id number] [place] [address] [place] CO2 [Moles/Vol] 24 mmol/L Normal 22-30 [facility] Comment on above: Order Comment: Speci men Type: BLOOD SPECIMENOrdering Facility: [facility] Address: [address] [place] [address] Performed By: #### 2 4321-2 ####[facility]ORYCL[facility] [id number] [address] [place] Creatinine [Mass/Vol] 0.74 mg/dL Normal 0.58-0.96 [facility] Comment on above: Order Comment: Fan meade Type: BLOOD SPECIMENOrdering Facility: [facility] Address: [address] [place] [address] Performed By: #### 2 4321-2 ####[facility]ATORYCLIA [id number] [address] Creatinine and Glomerular filtration rate.predicted panel (S/P/Bld) 78 mL/min/1.73m??? Normal >=60 [facility] Comment on above: Order Comment: Fan meade Type: BLOOD SPECIMENOrdering Facility: [facility] Address: [address] [place] [address] Result Comment: Hilda mated Glomerular Filtration Rate [...] Performed By: #### 2 4321-2 ####[facility] LABORATORYCLIA [id number] [address] [place] [facility] Glucose [Mass/Vol] 139 mg/dL High 74-99 [facility] Comment on above: Order Comment: Fan meade Type: BLOOD SPECIMENOrdering Facility: [facility] Address: [address] [place] [address] Result Comment: The [place] Diabetes Association (ADA) provides guidance for cutoff [...] Standards of Medical Care in Diabetes 2016, [place] [employer] Association. Diabetes Care. 2016.39(Suppl 1). Performed By: #### 2 4321-2 ####[facility] LABORATORYCLIA [id number] [address] [place] Potassium [Moles/Vol] 3.8 mmol/L Normal 3.7-5.1 [facility] Comment on above: Order Comment: Speci men Type: BLOOD SPECIMENOrdering Facility: [facility] Address: [address] [place] [address] Performed By: #### 2 4321-2 ####[facility] LABORATORYCLIA [id number] [address] [place] Sodium [Moles/Vol] 137 mmol/L Normal 136-144 [facility] Comment on above: Order Comment: Speci men Type: BLOOD SPECIMENOrdering Facility: [facility] Address: [address] [place] [address] Performed By: #### 2 4321-2 ####[facility] LABORATORYCLIA [id number] [place] [address] [place] Urea nitrogen [Mass/Vol] 24 mg/dL High 7-21 [facility] Comment on above: Order Comment: Katei men Type: BLOOD SPECIMENOrdering Facility: [facility] Address: [address] [place] [address] Performed By: #### 2 4321-2 ####[facility]ORYCLIA [id number] [address] [place] CASE MANAGEMon 12-12-2024 CASE MANAGEM Normal [facility] CASE MANAGEM Normal [facility] CBC W Auto Differential pane l (Bld)on 12-12-2024 Basophils (Bld) [#/Vol] 0.03 10*3/uL Normal <0.11 [facility] Comment on above: Order Comment: Speci men Type: BLOOD SPECIMENOrdering Facility: [facility] Address: [address] [place] [address] Performed By: #### 5 7021-8 ####[facility]ATORYCLIA [id number] [place] [address] [place] Basophils/100 WBC (Bld) 0.3 % Normal [facility] Comment on above: Order Comment: Speci men Type: BLOOD SPECIMENOrdering Facility: [facility] Address: [address] [place] [address] Performed By: #### 5 7021-8 ####[facility] LABORATORYCLIA [id number] [place] [address] [place] [facility] [place] Differential cell count method Nom (Bld) Auto Normal [facility] Comment on above: Order Comment: Speci men Type: BLOOD SPECIMENOrdering Facility: [facility] Address: [address] [place] [address] Performed By: #### 5 7021-8 ####[facility] LABORATORYCLIA [id number] [place] [address] [place] Eosinophils (Bld) [#/Vol] 0.15 10*3/uL Normal <0.46 [facility] Comment on above: Order Comment: Speci men Type: BLOOD SPECIMENOrdering Facility: [facility] Address: [address] [place] [address] Performed By: #### 5 7021-8 ####[facility] LABORATORYCLIA [id number] [address] Eosinophils/100 WBC (Bld) 1.7 % Normal [facility] Comment on above: Order Comment: Speci men Type: BLOOD SPECIMENOrdering Facility: [facility] Address: [address] [place] [address] Performed By: #### 5 7021-8 ####[facility] LABORATORYCLIA [id number] [address] [place] Erythrocyte distribution width (RBC) [Ratio] 16.7 % High 11.5-15.0 [facility] Comment on above: Order Comment: Speci men Type: BLOOD SPECIMENOrdering Facility: [facility] Address: [address] [place] [address] Performed By: #### 5 7021-8 ####[facility] LABORATORYCLIA [id number] [address] [place] Hematocrit (Bld) [Volume fraction] 24.4 % Low 36.0-46.0 [facility] Comment on above: Order Comment: Speci men Type: BLOOD SPECIMENOrdering Facility: [facility] Address: [address] [place] [address] Performed By: #### 5 7021-8 ####[facility] LABORATORYCLIA [id number] [address] [place] Hemoglobin (Bld) [Mass/Vol] 7.8 g/dL Low 11.5-15.5 [facility] Comment on above: Order Comment: Speci men Type: BLOOD SPECIMENOrdering Facility: [facility] Address: [address] [place] [address] Performed By: #### 5 7021-8 ####[facility] LABORATORYCLIA [id number] [address] [place] Immature granulocytes (Bld) [#/Vol] 0.10 10*3/uL High <0.10 [facility] Comment on above: Order Comment: Speci men Type: BLOOD SPECIMENOrdering Facility: [facility] Address: [address] [place] [address] Performed By: #### 5 7021-8 ####[facility] LABORATORYCLIA [id number] [address] [place] Immature granulocytes/100 WBC (Bld) 1.2 % Normal [facility] Comment on above: Order Comment: Speci men Type: BLOOD SPECIMENOrdering Facility: [facility] Address: [address] [place] [address] Performed By: #### 5 7021-8 ####[facility] LABORATORYCLIA [id number] [place] [address] [place] Lymphocytes (Bld) [#/Vol] 1.19 10*3/uL Normal 1.00-4.00 [facility] Comment on above: Order Comment: Speci men Type: BLOOD SPECIMENOrdering Facility: [facility] Address: [address] [place] [address] Performed By: #### 5 7021-8 ####[facility] LABORATORYCLIA [id number] [address] [place] [facility] Lymphocytes/100 WBC (Bld) 13.7 % Normal [facility] Comment on above: Order Comment: Speci men Type: BLOOD SPECIMENOrdering Facility: [facility] Address: [address] [place] [address] Performed By: #### 5 7021-8 ####[facility] LABORATORYCLIA [id number] [place] [address] [place] MCH (RBC) [Entitic mass] 28.1 pg Normal 26.0-34.0 [facility] Comment on above: Order Comment: Speci men Type: BLOOD SPECIMENOrdering Facility: [facility] Address: [address] [place] [address] Performed By: #### 5 7021-8 ####[facility] LABORATORYCLIA [id number] [address] [place] MCHC (RBC) [Mass/Vol] 32.0 g/dL Normal 30.5-36.0 [facility] Comment on above: Order Comment: Speci men Type: BLOOD SPECIMENOrdering Facility: [facility] Address: [address] [place] [address] Performed By: #### 5 7021-8 ####[facility] LABORATORYCLIA [id number] [address] MCV (RBC) [Entitic vol] 87.8 fL Normal 80.0-100.0 [facility] Comment on above: Order Comment: Speci men Type: BLOOD SPECIMENOrdering Facility: [facility] Address: [address] [place] [address] Performed By: #### 5 7021-8 ####[facility] LABORATORYCLIA [id number] [address] [place] Monocytes (Bld) [#/Vol] 0.66 10*3/uL Normal <0.87 [facility] Comment on above: Order Comment: Speci men Type: BLOOD SPECIMENOrdering Facility: [facility] Address: [address] [place] [address] Performed By: #### 5 7021-8 ####[facility] LABORATORYCLIA [id number] [place] [address] [place] Monocytes/100 WBC (Bld) 7.6 % Normal [facility] Comment on above: Order Comment: Speci men Type: BLOOD SPECIMENOrdering Facility: [facility] Address: [address] [place] [address] Performed By: #### 5 7021-8 ####[facility] LABORATORYCLIA [id number] [place] [address] [place] Neutrophils (Bld) [#/Vol] 6.54 10*3/uL Normal 1.45-7.50 [facility] Comment on above: Order Comment: Speci men Type: BLOOD SPECIMENOrdering Facility: [facility] Address: [address] [place] [address] Performed By: #### 5 7021-8 ####VILLARREAL LABORATORYCLIA [id number] [address] [place] Neutrophils/100 WBC (Bld) 75.5 % Normal [facility] Comment on above: Order Comment: Speci men Type: BLOOD SPECIMENOrdering Facility: [facility] Address: [address] [place] [address] Performed By: #### 5 7021-8 ####VILLARREAL LABORATORYCLIA [id number] [place] [address] [place] Nucleated RBC (Bld) [#/Vol] 10*3/uL Normal <0.01 [facility] Comment on above: Order Comment: Speci men Type: BLOOD SPECIMENOrdering Facility: [facility] Address: [address] [place] [address] Performed By: #### 5 7021-8 ####VILLARREAL LABORATORYCLIA [id number] [place] [address] [place] Nucleated RBC/100 WBC (Bld) [Ratio] 0.0 /100 WBC Normal [facility] Comment on above: Order Comment: Speci men Type: BLOOD SPECIMENOrdering Facility: [facility] Address: [address] [place] [address] Performed By: #### 5 7021-8 ####VILLARREAL LABORATORYCLIA [id number] [address] [place] Platelet mean volume (Bld) [Entitic vol] 8.0 fL Low 9.0-12.7 [facility] Comment on above: Order Comment: Speci men Type: BLOOD SPECIMENOrdering Facility: [facility] Address: [address] [place] [address] Performed By: #### 5 7021-8 ####VILLARREAL LABORATORYCLIA [id number] [place] [address] [facility] [place] Platelets (Bld) [#/Vol] 571 10*3/uL High 150-400 [facility] Comment on above: Order Comment: Speci men Type: BLOOD SPECIMENOrdering Facility: [facility] Address: [address] [place] [address] Performed By: #### 5 7021-8 ####VILLARREAL LABORATORYCLIA [id number] [address] RBC (Bld) [#/Vol] 2.78 10*6/uL Low 3.90-5.20 [facility] Comment on above: Order Comment: Speci men Type: BLOOD SPECIMENOrdering Facility: [facility] Address: [address] [place] [address] Performed By: #### 5 7021-8 ####VILLARREAL LABORATORYCLIA [id number] [address] WBC (Bld) [#/Vol] 8.67 10*3/uL Normal 3.70-11.00 [facility] Comment on above: Order Comment: Speci men Type: BLOOD SPECIMENOrdering Facility: [facility] Address: [address] [place] [address] Performed By: #### 5 7021-8 ####VILLARREAL LABORATORYCLIA [id number] [address] [place] CNDSon 12-12-2024 CNDS Normal [facility] CONSULT PROGon 12-12-2024 CONSULT PROG Normal [facility] CONSULT PROG Normal [facility] CONSULT PROG Normal [facility] OPERATIVE NOon 12-12-2024 OPERATIVE NO Normal [facility] Basic metabolic 2000 panelon 12-11-2024 Anion gap [Moles/Vol] 11 mmol/L Normal 8-15 [facility] Comment on above: Order Comment: Speci men Type: BLOOD SPECIMENOrdering Facility: [facility] Address: [address] [place] [address] Performed By: #### 2 4321-2 ####VILLARREAL LABORATORYCLIA [id number] [place] [address] [place] Calcium [Mass/Vol] 9.1 mg/dL Normal 8.5-10.2 [facility] Comment on above: Order Comment: Speci men Type: BLOOD SPECIMENOrdering Facility: [facility] Address: [address] [place] [address] Performed By: #### 2 4321-2 ####VILLARREAL LABORATORYCLIA [id number] [place] [address] [place] Chloride [Moles/Vol] 102 mmol/L Normal 98-107 [facility] Comment on above: Order Comment: Speci men Type: BLOOD SPECIMENOrdering Facility: [facility] Address: [facility] [place] [address] Performed By: #### 2 4321-2 ####VILLARREAL LABORATORYCLIA [id number] [place] [address] [place] CO2 [Moles/Vol] 25 mmol/L Normal 22-30 [facility] Comment on above: Order Comment: Speci men Type: BLOOD SPECIMENOrdering Facility: [facility] Address: [facility] [place] [address] Performed By: #### 2 4321-2 ####VILLARREAL LABORATORYCLIA [id number] [place] [address] [place] Creatinine [Mass/Vol] 0.80 mg/dL Normal 0.58-0.96 [facility] Comment on above: Order Comment: Speci men Type: BLOOD SPECIMENOrdering Facility: [facility] Address: [address] [place] [address] [place] [address] Performed By: #### 2 4321-2 ####VILLARREAL LABORATORYCLIA [id number] [place] [address] [place] Creatinine and Glomerular filtration rate.predicted panel (S/P/Bld) 71 mL/min/1.73m??? Normal >=60 [facility] Comment on above: Order Comment: Fan meade Type: BLOOD SPECIMENOrdering Facility: [facility] Address: [address] [place] [id number] Result Comment: Hilda mated Glomerular Filtration Rate [...] Performed By: #### 2 4321-2 ####VILLARREAL LABORATORYCLIA [id number] [place] [address] [place] Glucose [Mass/Vol] 203 mg/dL High 74-99 [facility] Comment on above: Order Comment: Fan meade Type: BLOOD SPECIMENOrdering Facility: [facility] Address: [address] [place] [address] Result Comment: The [place] Diabetes Association (ADA) provides guidance for cutoff [...] Standards of Medical Care in Diabetes 2016, [place] [employer]. Diabetes Care. 2016.39(Suppl 1). Performed By: #### 2 4321-2 ####VILLARREAL LABORATORYCLIA [id number] [place] [address] [place] Potassium [Moles/Vol] 3.8 mmol/L Normal 3.7-5.1 [facility] Comment on above: Order Comment: Fan meade Type: BLOOD SPECIMENOrdering Facility: [facility] Address: [address] [place] [address] Performed By: #### 2 4321-2 ####VILLARREAL LABORATORYCLIA [id number] [address] [place] [facility] Sodium [Moles/Vol] 138 mmol/L Normal 136-144 [facility] Comment on above: Order Comment: Speci men Type: BLOOD SPECIMENOrdering Facility: [facility] Address: [address] [place] [address] Performed By: #### 2 4321-2 ####VILLARREAL LABORATORYCLIA [id number] [place] [address] [place] Urea nitrogen [Mass/Vol] 33 mg/dL High 7-21 [facility] Comment on above: Order Comment: Speci men Type: BLOOD SPECIMENOrdering Facility: [facility] Address: [address] [place] [address] Performed By: #### 2 4321-2 ####VILLARREAL LABORATORYCLIA [id number] [address] OF [facility] CASE MANAGEMon 12-11-2024 CASE MANAGEM Normal [facility] CBC W Auto Differential pane l (Bld)on 12-11-2024 Basophils (Bld) [#/Vol] 10*3/uL Normal <0.11 [facility] Comment on above: Order Comment: Speci men Type: BLOOD SPECIMENOrdering Facility: [facility] Address: [address] [place] [address] Performed By: #### 5 7021-8 ####VILLARREAL LABORATORYCLIA [id number] [address] [place] Basophils/100 WBC (Bld) 0.2 % Normal [facility] Comment on above: Order Comment: Speci men Type: BLOOD SPECIMENOrdering Facility: [facility] Address: [address] [place] [address] Performed By: #### 5 7021-8 ####VILLARREAL LABORATORYCLIA [id number] [address] [place] [facility] Differential cell count method Nom (Bld) Auto Normal [facility] Comment on above: Order Comment: Speci men Type: BLOOD SPECIMENOrdering Facility: [facility] Address: [address] [place] [address] Performed By: #### 5 7021-8 ####VILLARREAL LABORATORYCLIA [id number] [place] [address] [place] Eosinophils (Bld) [#/Vol] 0.11 10*3/uL Normal <0.46 [facility] Comment on above: Order Comment: Speci men Type: BLOOD SPECIMENOrdering Facility: [facility] Address: [address] [place] [address] Performed By: #### 5 7021-8 ####VILLARREAL LABORATORYCLIA [id number] [address] [place] Eosinophils/100 WBC (Bld) 1.1 % Normal [facility] Comment on above: Order Comment: Speci men Type: BLOOD SPECIMENOrdering Facility: [facility] Address: [address] [place] [address] Performed By: #### 5 7021-8 ####VILLARREAL LABORATORYCLIA [id number] [address] [place] Erythrocyte distribution width (RBC) [Ratio] 16.8 % High 11.5-15.0 [facility] Comment on above: Order Comment: Speci men Type: BLOOD SPECIMENOrdering Facility: [facility] Address: [address] [place] [address] Performed By: #### 5 7021-8 ####VILLARREAL LABORATORYCLIA [id number] [address] [place] Hematocrit (Bld) [Volume fraction] 25.2 % Low 36.0-46.0 [facility] Comment on above: Order Comment: Speci men Type: BLOOD SPECIMENOrdering Facility: [facility] Address: [address] [place] [address] Performed By: #### 5 7021-8 ####VILLARREAL LABORATORYCLIA [id number] [address] [place] Hemoglobin (Bld) [Mass/Vol] 8.4 g/dL Low 11.5-15.5 [facility] Comment on above: Order Comment: Speci men Type: BLOOD SPECIMENOrdering Facility: [facility] Address: [address] [place] [address] Performed By: #### 5 7021-8 ####VILLARREAL LABORATORYCLIA [id number] [address] [place] Immature granulocytes (Bld) [#/Vol] 0.16 10*3/uL High <0.10 [facility] Comment on above: Order Comment: Speci men Type: BLOOD SPECIMENOrdering Facility: [facility] Address: [address] [place] [address] Performed By: #### 5 7021-8 ####VILLARREAL LABORATORYCLIA [id number] [address] Immature granulocytes/100 WBC (Bld) 1.5 % Normal [facility] Comment on above: Order Comment: Speci men Type: BLOOD SPECIMENOrdering Facility: [facility] Address: [address] [place] [address] Performed By: #### 5 7021-8 ####VILLARREAL LABORATORYCLIA [id number] [place] [address] [place] Lymphocytes (Bld) [#/Vol] 1.13 10*3/uL Normal 1.00-4.00 [facility] Comment on above: Order Comment: Speci men Type: BLOOD SPECIMENOrdering Facility: [facility] Address: [address] [place] [address] Performed By: #### 5 7021-8 ####VILLARREAL LABORATORYCLIA [id number] [address] [place] Lymphocytes/100 WBC (Bld) 10.9 % Normal [facility] Comment on above: Order Comment: Speci men Type: BLOOD SPECIMENOrdering Facility: [facility] Address: [address] [place] [address] Performed By: #### 5 7021-8 ####VILLARREAL LABORATORYCLIA [id number] [place] [address] [place] MCH (RBC) [Entitic mass] 28.7 pg Normal 26.0-34.0 [facility] Comment on above: Order Comment: Speci men Type: BLOOD SPECIMENOrdering Facility: [facility] Address: [address] [place] [address] Performed By: #### 5 7021-8 ####VILLARREAL LABORATORYCLIA [id number] [address] [place] [facility] MCHC (RBC) [Mass/Vol] 33.3 g/dL Normal 30.5-36.0 [facility] Comment on above: Order Comment: Speci men Type: BLOOD SPECIMENOrdering Facility: [facility] Address: [address] [place] [address] Performed By: #### 5 7021-8 ####VILLARREAL LABORATORYCLIA [id number] [address] MCV (RBC) [Entitic vol] 86.0 fL Normal 80.0-100.0 [facility] Comment on above: Order Comment: Speci men Type: BLOOD SPECIMENOrdering Facility: [facility] Address: [address] [place] [address] Performed By: #### 5 7021-8 ####VILLARREAL LABORATORYCLIA [id number] [address] [place] Monocytes (Bld) [#/Vol] 0.64 10*3/uL Normal <0.87 [facility] Comment on above: Order Comment: Speci men Type: BLOOD SPECIMENOrdering Facility: [facility] Address: [address] [place] [address] Performed By: #### 5 7021-8 ####VILLARREAL LABORATORYCLIA [id number] [address] Monocytes/100 WBC (Bld) 6.2 % Normal [facility] Comment on above: Order Comment: Speci men Type: BLOOD SPECIMENOrdering Facility: [facility] Address: [address] [place] [address] Performed By: #### 5 7021-8 ####VILLARREAL LABORATORYCLIA [id number] [address] [place] Neutrophils (Bld) [#/Vol] 8.31 10*3/uL High 1.45-7.50 [facility] Comment on above: Order Comment: Speci men Type: BLOOD SPECIMENOrdering Facility: [facility] Address: [facility] [place] [address] Performed By: #### 5 7021-8 ####VILLARREAL LABORATORYCLIA [id number] [address] [place] Neutrophils/100 WBC (Bld) 80.1 % Normal [facility] Comment on above: Order Comment: Speci men Type: BLOOD SPECIMENOrdering Facility: [facility] Address: [address] [place] [address] Performed By: #### 5 7021-8 ####VILLARREAL LABORATORYCLIA [id number] [place] [address] [place] Nucleated RBC (Bld) [#/Vol] 10*3/uL Normal <0.01 [facility] Comment on above: Order Comment: Speci men Type: BLOOD SPECIMENOrdering Facility: [facility] Address: [address] [place] [address] Performed By: #### 5 7021-8 ####VILLARREAL LABORATORYCLIA [id number] [address] [place] Nucleated RBC/100 WBC (Bld) [Ratio] 0.0 /100 WBC Normal [facility] Comment on above: Order Comment: Speci men Type: BLOOD SPECIMENOrdering Facility: [facility] Address: [address] [place] [address] Performed By: #### 5 7021-8 ####VILLARREAL LABORATORYCLIA [id number] [place] [address] [place] Platelet mean volume (Bld) [Entitic vol] 7.9 fL Low 9.0-12.7 [facility] Comment on above: Order Comment: Speci men Type: BLOOD SPECIMENOrdering Facility: [facility] Address: [address] [place] [address] Performed By: #### 5 7021-8 ####VILLARREAL LABORATORYCLIA [id number] [place] [address] [place] Platelets (Bld) [#/Vol] 600 10*3/uL High 150-400 [facility] Comment on above: Order Comment: Speci men Type: BLOOD SPECIMENOrdering Facility: [facility] Address: [address] [place] [address] Performed By: #### 5 7021-8 ####[facility] LABORATORYCLIA [id number] [place] [address] [place] RBC (Bld) [#/Vol] 2.93 10*6/uL Low 3.90-5.20 [facility] Comment on above: Order Comment: Speci men Type: BLOOD SPECIMENOrdering Facility: [facility] Address: [address] [place] [address] Performed By: #### 5 7021-8 ####[facility] LABORATORYCLIA [id number] [address] WBC (Bld) [#/Vol] 10.37 10*3/uL Normal 3.70-11.00 [facility] Comment on above: Order Comment: Speci men Type: BLOOD SPECIMENOrdering Facility: [facility] Address: [address] [place], [place] [address] Performed By: #### 5 7021-8 ####[facility] LABORATORYCLIA [id number] [address] CONSULT PROGon 12-11-2024 CONSULT PROG Normal [facility] CONSULT PROG Normal [facility] CONSULT PROG Normal [facility] CONSULT PROG Normal [facility] CONSULT PROG Normal [facility] NUTRITIONon 12-11-2024 NUTRITION Normal [facility] ANES POSTPROC EVALon 025 ANES POSTPROC EVAL Normal [facility] ANES PRE-OPon 12-10-2024 ANES PRE-OP [facility] BRIEF OP NOTon 12-10-2024 BRIEF OP NOT Normal [facility] Basic metabolic 2000 panelon 12-10-2024 Anion gap [Moles/Vol] 10 mmol/L Normal 8-15 [facility] Comment on above: Order Comment: Speci men Type: BLOOD SPECIMENOrdering Facility: [facility] Address: [address] [place] [address] Performed By: #### 2 4321-2 ####VILLARREAL LABORATORYCLIA [id number] [place] [address] [place] Calcium [Mass/Vol] 8.9 mg/dL Normal 8.5-10.2 [facility] Comment on above: Order Comment: Speci men Type: BLOOD SPECIMENOrdering Facility: [facility] Address: [address] [place] [address] Performed By: #### 2 4321-2 ####VILLARREAL LABORATORYCLIA [id number] [place] [address] [place] Chloride [Moles/Vol] 102 mmol/L Normal 98-107 [facility] Comment on above: Order Comment: Speci men Type: BLOOD SPECIMENOrdering Facility: [facility] Address: [address] [place] [address] Performed By: #### 2 4321-2 ####VILLARREAL LABORATORYCLIA [id number] [place] [address] [place] CO2 [Moles/Vol] 26 mmol/L Normal 22-30 [facility] Comment on above: Order Comment: Speci men Type: BLOOD SPECIMENOrdering Facility: [facility] Address: [address] [place] [address] Performed By: #### 2 4321-2 ####VILLARREAL LABORATORYCLIA [id number] [address] [place] Creatinine [Mass/Vol] 0.68 mg/dL Normal 0.58-0.96 [facility] Comment on above: Order Comment: Speci men Type: BLOOD SPECIMENOrdering Facility: [facility] Address: [address] [place] [address] Performed By: #### 2 4321-2 ####VILLARREAL LABORATORYCLIA [id number] [address] Creatinine and Glomerular filtration rate.predicted panel (S/P/Bld) 84 mL/min/1.73m??? Normal >=60 [facility] Comment on above: Order Comment: Speci men Type: BLOOD SPECIMENOrdering Facility: [facility] Address: [address] [place] [address] Result Comment: Hilda mated Glomerular Filtration Rate [...] actual GFR. Performed By: #### 2 4321-2 ####[facility] LABORATORYCLIA [id number] [place] [id number] [place] Glucose [Mass/Vol] 79 mg/dL Normal 74-99 [facility] Comment on above: Order Comment: Fan men Type: BLOOD SPECIMENOrdering Facility: [facility] Address: [address] [place] [address] Result Comment: The [place] Diabetes Association (ADA) provides guidance for cutoff [...] Standards of Medical Care in Diabetes 2016, [place] [employer]. Diabetes Care. 2016.39(Suppl 1). Performed By: #### 2 4321-2 ####[facility] LABORATORYCLIA [id number] [place] [id number] [place] Potassium [Moles/Vol] 4.1 mmol/L Normal 3.7-5.1 [facility] Comment on above: Order Comment: Fan men Type: BLOOD SPECIMENOrdering Facility: [facility] Address: [address] [id number] Performed By: #### 2 4321-2 ####VILLARREAL LABORATORYCLIA [id number] [place] [address] [place] Sodium [Moles/Vol] 138 mmol/L Normal 136-144 [facility] Comment on above: Order Comment: Speci men Type: BLOOD SPECIMENOrdering Facility: [facility] Address: [address] [place] [address] Performed By: #### 2 4321-2 ####VILLARREAL LABORATORYCLIA [id number] [place] [address] [place] Urea nitrogen [Mass/Vol] 45 mg/dL High 7-21 [facility] Comment on above: Order Comment: Speci men Type: BLOOD SPECIMENOrdering Facility: [facility] Address: [address] [place] [address] Performed By: #### 2 4321-2 ####VILLARRELA LABORATORYCLIA [id number] [address] [place] CASE MANAGEMon 12-10-2024 CASE MANAGEM [facility] CBC W Auto Differential pane l (Bld)on 12-10-2024 Basophils (Bld) [#/Vol] 10*3/uL Normal <0.11 [facility] Comment on above: Order Comment: Speci men Type: BLOOD SPECIMENOrdering Facility: [facility] Address: [address] [place] [address] Performed By: #### 5 7021-8 ####VILLARREAL LABORATORYCLIA [id number] [place] [address] [place] Basophils/100 WBC (Bld) 0.2 % Normal [facility] Comment on above: Order Comment: Speci men Type: BLOOD SPECIMENOrdering Facility: [facility] Address: [address] [place] [address] Performed By: #### 5 7021-8 ####VILLARREAL LABORATORYCLIA [id number] [place] [address] [place] Differential cell count method Nom (Bld) Auto [facility] Comment on above: Order Comment: Speci men Type: BLOOD SPECIMENOrdering Facility: [facility] Address: [address] [place] [address] Performed By: #### 5 7021-8 ####VILLARREAL LABORATORYCLIA [id number] [place] [address] [place] Eosinophils (Bld) [#/Vol] 0.07 10*3/uL Normal <0.46 [facility] Comment on above: Order Comment: Speci men Type: BLOOD SPECIMENOrdering Facility: [facility] Address: [address] [place] [address] Performed By: #### 5 7021-8 ####VILLARREAL LABORATORYCLIA [id number] [place] [address] [place] Eosinophils/100 WBC (Bld) 0.6 % Normal [facility] Comment on above: Order Comment: Speci men Type: BLOOD SPECIMENOrdering Facility: [facility] Address: [address] [place] [address] Performed By: #### 5 7021-8 ####VILLARREAL LABORATORYCLIA [id number] [address] [place] [facility] Erythrocyte distribution width (RBC) [Ratio] 16.6 % High 11.5-15.0 [facility] Comment on above: Order Comment: Speci men Type: BLOOD SPECIMENOrdering Facility: [facility] Address: [address] [place] [address] Performed By: #### 5 7021-8 ####VILLARRE[facility] LABORATORYCLIA [id number] [address] Hematocrit (Bld) [Volume fraction] 23.9 % Low 36.0-46.0 [facility] Comment on above: Order Comment: Speci men Type: BLOOD SPECIMENOrdering Facility: [facility] Address: [address] [place] [address] Performed By: #### 5 7021-8 ####VILLARRE[facility] LABORATORYCLIA [id number] [place] [address] [place] Hemoglobin (Bld) [Mass/Vol] 7.8 g/dL Low 11.5-15.5 [facility] Comment on above: Order Comment: Speci men Type: BLOOD SPECIMENOrdering Facility: [facility] Address: [address] [place] [address] Performed By: #### 5 7021-8 ####VILLARRE[facility] LABORATORYCLIA [id number] [address] [place] Immature granulocytes (Bld) [#/Vol] 0.16 10*3/uL High <0.10 [facility] Comment on above: Order Comment: Speci men Type: BLOOD SPECIMENOrdering Facility: [facility] Address: [address] [place] [address] Performed By: #### 5 7021-8 ####VILLARRE[facility] LABORATORYCLIA [id number] [address] Immature granulocytes/100 WBC (Bld) 1.4 % Normal [facility] Comment on above: Order Comment: Speci men Type: BLOOD SPECIMENOrdering Facility: [facility] Address: [address] [place] [address] Performed By: #### 5 7021-8 ####VILLARRE[facility] LABORATORYCLIA [id number] [address] Lymphocytes (Bld) [#/Vol] 1.18 10*3/uL Normal 1.00-4.00 [facility] Comment on above: Order Comment: Speci men Type: BLOOD SPECIMENOrdering Facility: [facility] Address: [address] [place] [address] Performed By: #### 5 7021-8 ####VILLARRE[facility] LABORATORYCLIA [id number] [address] Lymphocytes/100 WBC (Bld) 10.3 % Normal [facility] Comment on above: Order Comment: Speci men Type: BLOOD SPECIMENOrdering Facility: [facility] Address: [address] [place] [address] Performed By: #### 5 7021-8 ####VILLARRE[facility] LABORATORYCLIA [id number] [address] [place] MCH (RBC) [Entitic mass] 28.9 pg Normal 26.0-34.0 [facility] Comment on above: Order Comment: Speci men Type: BLOOD SPECIMENOrdering Facility: [facility] Address: [address] [place] [address] Performed By: #### 5 7021-8 ####VILLARREAL LABORATORYCLIA [id number] [address] [place] MCHC (RBC) [Mass/Vol] 32.6 g/dL Normal 30.5-36.0 [facility] Comment on above: Order Comment: Speci men Type: BLOOD SPECIMENOrdering Facility: [facility] Address: [address] [place] [address] Performed By: #### 5 7021-8 ####VILLARREAL LABORATORYCLIA [id number] [place] [address] [place] MCV (RBC) [Entitic vol] 88.5 fL Normal 80.0-100.0 [facility] Comment on above: Order Comment: Speci men Type: BLOOD SPECIMENOrdering Facility: [facility] Address: [address] [place] [address] Performed By: #### 5 7021-8 ####VILLARRE[facility] LABORATORYCLIA [id number] [place] [address] [place] Monocytes (Bld) [#/Vol] 0.70 10*3/uL Normal <0.87 [facility] Comment on above: Order Comment: Speci men Type: BLOOD SPECIMENOrdering Facility: [facility] Address: [address] [place] [address] Performed By: #### 5 7021-8 ####[facility] LABORATORYCLIA [id number] [address] Monocytes/100 WBC (Bld) 6.1 % Normal [facility] Comment on above: Order Comment: Speci men Type: BLOOD SPECIMENOrdering Facility: [facility] Address: [address] [place] [address] Performed By: #### 5 7021-8 ####[facility] LABORATORYCLIA [id number] [place] [address] [place] Neutrophils (Bld) [#/Vol] 9.32 10*3/uL High 1.45-7.50 [facility] Comment on above: Order Comment: Speci men Type: BLOOD SPECIMENOrdering Facility: [facility] Address: [address] [place] [address] Performed By: #### 5 7021-8 ####[facility] LABORATORYCLIA [id number] [address] [place] Neutrophils/100 WBC (Bld) 81.4 % Normal [facility] Comment on above: Order Comment: Speci men Type: BLOOD SPECIMENOrdering Facility: [facility] Address: [address] [place] [address] Performed By: #### 5 7021-8 ####VILLARRE[facility] LABORATORYCLIA [id number] [place] [address] [place] Nucleated RBC (Bld) [#/Vol] 10*3/uL Normal <0.01 [facility] Comment on above: Order Comment: Speci men Type: BLOOD SPECIMENOrdering Facility: [facility] Address: [address] [place] [address] Performed By: #### 5 7021-8 ####VILLARRE[facility] LABORATORYCLIA [id number] [address] [place] Nucleated RBC/100 WBC (Bld) [Ratio] 0.0 /100 WBC Normal [facility] Comment on above: Order Comment: Speci men Type: BLOOD SPECIMENOrdering Facility: [facility] Address: [address] [place] [address] Performed By: #### 5 7021-8 ####VILLARREAL LABORATORYCLIA [id number] [place] [address] [place] Platelet mean volume (Bld) [Entitic vol] 8.1 fL Low 9.0-12.7 [facility] Comment on above: Order Comment: Speci men Type: BLOOD SPECIMENOrdering Facility: [facility] Address: [address] [place] [address] Performed By: #### 5 7021-8 ####VILLARRE[facility] LABORATORYCLIA [id number] [place] [address] [place] Platelets (Bld) [#/Vol] 579 10*3/uL High 150-400 [facility] Comment on above: Order Comment: Speci men Type: BLOOD SPECIMENOrdering Facility: [facility] Address: [address] [place] [address] Performed By: #### 5 7021-8 ####VILLARREAL LABORATORYCLIA [id number] [place] [address] [facility] [place] RBC (Bld) [#/Vol] 2.70 10*6/uL Low 3.90-5.20 [facility] Comment on above: Order Comment: Speci men Type: BLOOD SPECIMENOrdering Facility: [facility] Address: [address] [place] [address] Performed By: #### 5 7021-8 ####[facility] LABORATORYCLIA [id number] [place] [id number] [place] WBC (Bld) [#/Vol] 11.45 10*3/uL High 3.70-11.00 [facility] Comment on above: Order Comment: Speci men Type: BLOOD SPECIMENOrdering Facility: [facility] Address: [address] [place] [address] Performed By: #### 5 7021-8 ####[facility] LABORATORYCLIA [id number] [address] CONSULT PROGon 12-10-2024 CONSULT PROG Normal [facility] CONSULT PROG Normal [facility] CONSULT PROG Normal [facility] CONSULT PROG Normal [facility] OPERATIVE NOon 12-10-2024 OPERATIVE NO Normal [facility] SURGICAL PATHOLOGYon 025 CASE REPORT Normal [facility] Comment on above: Order Comment: Speci men Type: TISSUE SPECIMENOrdering Facility: [facility] Address: [address] [place] [address] Result Comment: Surg ical Pathology Report Case: [id number] Provider: José Miguel Morgan MD Collected: 12/10/2024 07:37 AMOrdering Location: [facility] Endoscopy Received: 12/10/2024 08:27 AMPathologist: Jesús Jeff MDSpecimens: A) - Small Bowel, Duodenum, Biopsy, sprue B) - Stomach, Biopsy, hp C) - Esophagus, Biopsy, at 30 cm r/o krystina Performed By: #### S ####[facility] LABCLIA [id number] [address] STATES OF [facility] LABCLIA [id number] [place] [address] [place] FINAL DIAGNOSIS Normal [facility] Comment on above: Order Comment: Speci men Type: TISSUE SPECIMENOrdering Facility: [facility] Address: [address] [place] [address] Result Comment: A. D uodenum, biopsy:- Focal gastric surface metaplasia associated with mild regenerative epithelial changes.- No other significant pathologic alteration.B. Stomach, biopsy:- Reactive gastropathy.- No morphologic evidence of Helicobacter pylori.C. Esophagus at 30 cm, biopsy:- Fragments of of unremarkable squamous mucosa.- No evidence of Krystina.JRG/mm/12/11/2024 Performed By: #### S ####[facility] LABCLIA [id number] [address] LABCLIA [id number] [place] [address] [place] FINAL PERFORMING LAB Normal [facility] Comment on above: Order Comment: Speci men Type: TISSUE SPECIMENOrdering Facility: [facility] Address: [address] [place] [address] Result Comment: Diag nostic interpretation performed at: [facility], [address] [place] [address] CLIA# [id number] Director: Manfred Diallo MD Performed By: #### S ####[facility] LABCLIA [id number] [address] LABCLIA [id number] [address] [place] GROSS DESCRIPTION [facility] Comment on above: Order Comment: Speci men Type: TISSUE SPECIMENOrdering Facility: [facility] Address: [address] [place] [address] Result Comment: A. S mall Bowel, Duodenum, [...] submitted in one cassette.Gross examination performed at [facility], [address] [place], [place] [address] December 10, 2024 10:50 AM Performed By: #### S ####[facility] LABCLIA [id number] [place] [address] [facility] LABCLIA [id number] [facility] [id number] [place] [address] [facility] THERAPY NTon 12-10-2024 THERAPY NT [facility] THERAPY NT [facility] Basic metabolic 2000 panelon 12-09-2024 Anion gap [Moles/Vol] 10 mmol/L Normal 8-15 [facility] Comment on above: Order Comment: Speci men Type: BLOOD SPECIMENOrdering Facility: [facility] Address: [address] [place], [place] [address] Performed By: #### 2 4321-2, 01152-6, 2276-02 ####[facility] LABORATORYCLIA [id number] [place] [address] [place] Calcium [Mass/Vol] 9.3 mg/dL Normal 8.5-10.2 [facility] Comment on above: Order Comment: Speci men Type: BLOOD SPECIMENOrdering Facility: [facility] Address: [address] [place] [address] Performed By: #### 2 4321-2, 75737-6, 2275- ####[facility] LABORATORYCLIA [id number] [place] [address] [place] Chloride [Moles/Vol] 100 mmol/L Normal 98-107 [facility] Comment on above: Order Comment: Speci men Type: BLOOD SPECIMENOrdering Facility: [facility] Address: [address] [place], [place] [address] Performed By: #### 2 4321-2, 24796-0, 2275-4 ####VILLARRE[facility] LABORATORYCLIA [id number] [place] [address] [place] CO2 [Moles/Vol] 26 mmol/L Normal 22-30 [facility] Comment on above: Order Comment: Speci men Type: BLOOD SPECIMENOrdering Facility: [facility] Address: [address] [place] [address] Performed By: #### 2 4321-2, 11510-3, 2276-02 ####VILLARRE[facility] LABORATORYCLIA [id number] [place] [id number] [place] Creatinine [Mass/Vol] 0.80 mg/dL Normal 0.58-0.96 [facility] Comment on above: Order Comment: Speci men Type: BLOOD SPECIMENOrdering Facility: [facility] Address: [address] [place] [address] Performed By: #### 2 4321-2, 75062-3, 2276-02 ####VILLARRE[facility] LABORATORYCLIA [id number] [address] Creatinine and Glomerular filtration rate.predicted panel (S/P/Bld) 71 mL/min/1.73m??? Normal >=60 [facility] Comment on above: Order Comment: Speci men Type: BLOOD SPECIMENOrdering Facility: [facility] Address: [address] [place] [address] Result Comment: Hilda mated Glomerular Filtration Rate [...] actual GFR. Performed By: #### 2 4321-2, 31328-9, 2275-4 ####VILLARRE[facility] LABORATORYCLIA [id number] [place] [id number] [place] Glucose [Mass/Vol] 151 mg/dL High 74-99 [facility] Comment on above: Order Comment: Katei men Type: BLOOD SPECIMENOrdering Facility: [facility] Address: [address] [place] [address] Result Comment: The [place] Diabetes Association (ADA) provides guidance for cutoff [...] Standards of Medical Care in Diabetes 2016, [place] [employer]. Diabetes Care. 2016.39(Suppl 1). Performed By: #### 2 4321-2, 64134-6, 2275-4 ####V[facility]RE[facility] LABORATORYCLIA [id number] [place] [address] [place] Potassium [Moles/Vol] 4.5 mmol/L Normal 3.7-5.1 [facility] Comment on above: Order Comment: Fan meade Type: BLOOD SPECIMENOrdering Facility: [facility] Address: [address] [place] [address] Performed By: #### 2 4321-2, 21739-5, 2275-4 ####VILLARRE[facility] LABORATORYCLIA [id number] [place] [address] [place] Sodium [Moles/Vol] 136 mmol/L Normal 136-144 [facility] Comment on above: Order Comment: Katei men Type: BLOOD SPECIMENOrdering Facility: [facility] Address: [address] [place], [place] [address] Performed By: #### 2 4321-2, 94277-5, 2275-4 ####V[facility] LABORATORYCLIA [id number] [place] [address] [place] Urea nitrogen [Mass/Vol] 43 mg/dL High 7-21 [facility] Comment on above: Order Comment: Speci men Type: BLOOD SPECIMENOrdering Facility: [facility] Address: [address] [place] [address] Performed By: #### 2 4321-2, 46658-9, 2276-4 ####[facility] LABORATORYCLIA [id number] [place] [address] [place] CBC W Auto Differential pane l (Bld)on 12-09-2024 Basophils (Bld) [#/Vol] 10*3/uL Normal <0.11 [facility] Comment on above: Order Comment: Speci men Type: BLOOD SPECIMENOrdering Facility: [facility] Address: [address] [place] [address] Performed By: #### 5 7021-8 ####[facility] LABORATORYCLIA [id number] [place] [address] [place] Basophils/100 WBC (Bld) 0.1 % Normal [facility] Comment on above: Order Comment: Speci men Type: BLOOD SPECIMENOrdering Facility: [facility] Address: [address] [place] [address] Performed By: #### 5 7021-8 ####V[facility] LABORATORYCLIA [id number] [place] [address] [place] Differential cell count method Nom (Bld) Auto Normal [facility] Comment on above: Order Comment: Speci men Type: BLOOD SPECIMENOrdering Facility: [facility] Address: [address] [place] [address] Performed By: #### 5 7021-8 ####VILLARRE[facility] LABORATORYCLIA [id number] [place] [address] [place] Eosinophils (Bld) [#/Vol] 0.15 10*3/uL Normal <0.46 [facility] Comment on above: Order Comment: Speci men Type: BLOOD SPECIMENOrdering Facility: [facility] Address: [address] [place] [address] Performed By: #### 5 7021-8 ####V[facility] LABORATORYCLIA [id number] [place] [address] [facility] [place] Eosinophils/100 WBC (Bld) 1.4 % Normal [facility] Comment on above: Order Comment: Speci men Type: BLOOD SPECIMENOrdering Facility: [facility] Address: [facility] [place] [address] Performed By: #### 5 7021-8 ####VILLARRE[facility] LABORATORYCLIA [id number] [address] [place] Erythrocyte distribution width (RBC) [Ratio] 16.4 % High 11.5-15.0 [facility] Comment on above: Order Comment: Speci men Type: BLOOD SPECIMENOrdering Facility: [facility] Address: [address] [place] [address] Performed By: #### 5 7021-8 ####[facility] LABORATORYCLIA [id number] [address] [place] Hematocrit (Bld) [Volume fraction] 24.0 % Low 36.0-46.0 [facility] Comment on above: Order Comment: Speci men Type: BLOOD SPECIMENOrdering Facility: [facility] Address: [address] [place] [address] Performed By: #### 5 7021-8 ####[facility] LABORATORYCLIA [id number] [address] [place] Hemoglobin (Bld) [Mass/Vol] 7.6 g/dL Low 11.5-15.5 [facility] Comment on above: Order Comment: Speci men Type: BLOOD SPECIMENOrdering Facility: [facility] Address: [address] [place] [address] Performed By: #### 5 7021-8 ####[facility] LABORATORYCLIA [id number] [address] [place] Immature granulocytes (Bld) [#/Vol] 0.23 10*3/uL High <0.10 [facility] Comment on above: Order Comment: Speci men Type: BLOOD SPECIMENOrdering Facility: [facility] Address: [address] [place] [address] Performed By: #### 5 7021-8 ####V[facility] LABORATORYCLIA [id number] [address] [place] Immature granulocytes/100 WBC (Bld) 2.1 % Normal [facility] Comment on above: Order Comment: Speci men Type: BLOOD SPECIMENOrdering Facility: [facility] Address: [address] [place] [address] Performed By: #### 5 7021-8 ####[facility] LABORATORYCLIA [id number] [address] [place] Lymphocytes (Bld) [#/Vol] 1.43 10*3/uL Normal 1.00-4.00 [facility] Comment on above: Order Comment: Speci men Type: BLOOD SPECIMENOrdering Facility: [facility] Address: [address] [place] [address] Performed By: #### 5 7021-8 ####V[facility] LABORATORYCLIA [id number] [address] Lymphocytes/100 WBC (Bld) 13.3 % Normal [facility] Comment on above: Order Comment: Speci men Type: BLOOD SPECIMENOrdering Facility: [facility] Address: [address] [place] [address] Performed By: #### 5 7021-8 ####[facility] LABORATORYCLIA [id number] [address] [place] MCH (RBC) [Entitic mass] 27.9 pg Normal 26.0-34.0 [facility] Comment on above: Order Comment: Speci men Type: BLOOD SPECIMENOrdering Facility: [facility] Address: [address] [place] [address] Performed By: #### 5 7021-8 ####[facility] LABORATORYCLIA [id number] [address] MCHC (RBC) [Mass/Vol] 31.7 g/dL Normal 30.5-36.0 [facility] Comment on above: Order Comment: Speci men Type: BLOOD SPECIMENOrdering Facility: [facility] Address: [address] [place] [address] Performed By: #### 5 7021-8 ####[facility] LABORATORYCLIA [id number] [address] [place] MCV (RBC) [Entitic vol] 88.2 fL Normal 80.0-100.0 [facility] Comment on above: Order Comment: Speci men Type: BLOOD SPECIMENOrdering Facility: [facility] Address: [address] [place] [address] Performed By: #### 5 7021-8 ####[facility] LABORATORYCLIA [id number] [address] [place] Monocytes (Bld) [#/Vol] 0.62 10*3/uL Normal <0.87 [facility] Comment on above: Order Comment: Speci men Type: BLOOD SPECIMENOrdering Facility: [facility] Address: [address] [place] [address] Performed By: #### 5 7021-8 ####[facility] LABORATORYCLIA [id number] [address] Monocytes/100 WBC (Bld) 5.8 % Normal [facility] Comment on above: Order Comment: Speci men Type: BLOOD SPECIMENOrdering Facility: [facility] Address: [address] [place] [address] Performed By: #### 5 7021-8 ####[facility] LABORATORYCLIA [id number] [address] [place] Neutrophils (Bld) [#/Vol] 8.31 10*3/uL High 1.45-7.50 [facility] Comment on above: Order Comment: Speci men Type: BLOOD SPECIMENOrdering Facility: [facility] Address: [address] [place] [address] Performed By: #### 5 7021-8 ####[facility] LABORATORYCLIA [id number] [address] Neutrophils/100 WBC (Bld) 77.3 % Normal [facility] Comment on above: Order Comment: Speci men Type: BLOOD SPECIMENOrdering Facility: [facility] Address: [address] [place] [address] Performed By: #### 5 7021-8 ####[facility] LABORATORYCLIA [id number] [address] [place] Nucleated RBC (Bld) [#/Vol] 10*3/uL Normal <0.01 [facility] Comment on above: Order Comment: Speci men Type: BLOOD SPECIMENOrdering Facility: [facility] Address: [address] [place] [address] Performed By: #### 5 7021-8 ####[facility] LABORATORYCLIA [id number] [address] [place] Nucleated RBC/100 WBC (Bld) [Ratio] 0.0 /100 WBC Normal [facility] Comment on above: Order Comment: Speci men Type: BLOOD SPECIMENOrdering Facility: [facility] Address: [address] [place] [address] Performed By: #### 5 7021-8 ####[facility] LABORATORYCLIA [id number] [address] [place] Platelet mean volume (Bld) [Entitic vol] 8.3 fL Low 9.0-12.7 [facility] Comment on above: Order Comment: Speci men Type: BLOOD SPECIMENOrdering Facility: [facility] Address: [address] [place] [address] Performed By: #### 5 7021-8 ####[facility] LABORATORYCLIA [id number] [address] [place] Platelets (Bld) [#/Vol] 577 10*3/uL High 150-400 [facility] Comment on above: Order Comment: Speci men Type: BLOOD SPECIMENOrdering Facility: [facility] Address: [address] [place] [address] Performed By: #### 5 7021-8 ####[facility] LABORATORYCLIA [id number] [place] [address] [place] RBC (Bld) [#/Vol] 2.72 10*6/uL Low 3.90-5.20 [facility] Comment on above: Order Comment: Speci men Type: BLOOD SPECIMENOrdering Facility: [facility] Address: [address] [place] [address] Performed By: #### 5 7021-8 ####[facility] LABORATORYCLIA [id number] [address] [place] WBC (Bld) [#/Vol] 10.75 10*3/uL Normal 3.70-11.00 [facility] Comment on above: Order Comment: Fan meade Type: BLOOD SPECIMENOrdering Facility: [facility] Address: [address] [place] [address] Performed By: #### 5 7021-8 ####[facility] LABORATORYCLIA [id number] [address] CELIAC SCREENon 12-09-2024 GLIAD DEAMIDATED IGA QUAL Negative Normal Negative, Test not Indicated [facility] Comment on above: Order Comment: Fan [facility] Type: BLOOD SPECIMENOrdering Facility: [facility] Address: [address] [place] [address] Result Comment: This is used as an aid in diagnosis of celiac disease. Clinical correlation is required.The following results were obtained with an [employer] QUANTA Lite Gliadin IgA JOE Gliadin. Gliadin IgA values obtained with different manufacturers' assay methods may not be used interchangeably. The magnitude of the reported IgA levels cannot be correlated to an endpoint titer. Performed By: #### L [id number] ####[facility] LABCLIA [id number] [address] [place] Gliadin peptide IgA Qn (S) 2 Units Normal <20 [facility] Comment on above: Order Comment: Fan [facility] Type: BLOOD SPECIMENOrdering Facility: [facility] Address: [address] [place] [address] Performed By: #### L [id number] ####[facility] LABCLIA [id number] [address] [place] INTERPRETATION No serological evidence of celiac disease, however, if celiac disease is clinically suspected and patient is not on gluten-free diet, histological diagnosis may be considered. HLA testing may help with risk assessment. Normal [facility] Comment on above: Order Comment: [facility] Type: BLOOD SPECIMENOrdering Facility: [facility] Address: [address] [place] [address] Performed By: #### L [id number] ####[facility] LABCLIA [id number] [place] [address] [place] TRANSGLUTAMINASE IGA ABS INTERPRETATION Negative Normal Negative [facility] Comment on above: Order Comment: Speci men Type: BLOOD SPECIMENOrdering Facility: [facility] Address: [address] [place] [address] Result Comment: The following results were obtained with [employer] R h-tTG IgA JOE.???R h-tTG IgA values obtained with different manufacturers' assay methods may not be used interchangeably. The magnitude of the reported IgA levels cannot be corelated to an endpoint???concentration.This is used as an aid in diagnosis of celiac disease. Clinical correlation is required. Performed By: #### L [id number] ####[facility] LABCLIA [id number] [place] [address] [place] tTG IgA Qn (S) <2 Normal <4 [facility] Comment on above: Order Comment: Speci men Type: BLOOD SPECIMENOrdering Facility: [facility] Address: [address] [place] [address] Performed By: #### L [id number] ####[facility] LABCLIA [id number] [place] [address] [place] CONSULT PROGon 12-09-2024 CONSULT PROG Normal [facility] CONSULT PROG Normal [facility] CONSULT PROG Normal [facility] Ferritin SerPl-mCncon 2024 Ferritin [Mass/Vol] 1588.0 ng/mL High 14.7-205.1 [facility] Comment on above: Order Comment: Speci men Type: BLOOD SPECIMENOrdering Facility: [facility] Address: [address] [place] [address] Performed By: #### 2 4321-2, 71270-8, 2276-4 ####[facility] LABORATORYCLIA [id number] [place] [address] [place] Haptoglob SerPl-mCncon 12-09 Haptoglobin [Mass/Vol] 483 mg/dL High 31-238 [facility] Comment on above: Order Comment: Speci men Type: BLOOD SPECIMENOrdering Facility: [facility] Address: [address] [place] [address] Performed By: #### 4 542-7 ####[facility] LABCLIA [id number] [place] [address] [place] IgA SerPl-mCncon 12-09-2024 IgA [Mass/Vol] 166 mg/dL Normal 70-400 [facility] Comment on above: Order Comment: Speci men Type: BLOOD SPECIMENOrdering Facility: [facility] Address: [address] [place] [address] Performed By: #### 2 458-8 ####[facility] LABCLIA [id number] [place] [address] [place] Iron and Iron binding capaci ty panelon 12-09-2024 Iron [Mass/Vol] 91 ug/dL Normal 41-186 [facility] Comment on above: Order Comment: Speci men Type: BLOOD SPECIMENOrdering Facility: [facility] Address: [address] [place] [address] Performed By: #### 2 4321-2, 74835-1, 2276-4 ####[facility] LABORATORYCLIA [id number] [address] [place] Iron binding capacity [Mass/Vol] 223 ug/dL Low 232-386 [facility] Comment on above: Order Comment: Speci men Type: BLOOD SPECIMENOrdering Facility: [facility] Address: [address] [place] [address] Performed By: #### 2 4321-2, 29747-9, 2276-4 ####[facility] LABORATORYCLIA [id number] [place] [id number] [place] Iron/TIBC [Molar ratio] 40.8 % Normal 15.0-57.0 [facility] Comment on above: Order Comment: Speci men Type: BLOOD SPECIMENOrdering Facility: [facility] Address: [address] [place] [address] Performed By: #### 2 4321-2, 65767-3, 2276-4 ####[facility] LABORATORYCLIA [id number] [place] [address] [place] CBC W Auto Differential pane l (Bld)on 12-08-2024 Basophils (Bld) [#/Vol] 0.03 10*3/uL Normal <0.11 [facility] Comment on above: Order Comment: Speci men Type: BLOOD SPECIMENOrdering Facility: [facility] Address: [address] [place] [address] Performed By: #### 5 7021-8 ####VILLARRE[facility] LABORATORYCLIA [id number] [address] [place] Basophils/100 WBC (Bld) 0.3 % Normal [facility] Comment on above: Order Comment: Speci men Type: BLOOD SPECIMENOrdering Facility: [facility] Address: [address] [place] [address] Performed By: #### 5 7021-8 ####VILLARREAL LABORATORYCLIA [id number] [address] STATES [facility] Differential cell count method Nom (Bld) Auto Normal [facility] Comment on above: Order Comment: Speci men Type: BLOOD SPECIMENOrdering Facility: [facility] Address: [address] [place] [address] Performed By: #### 5 7021-8 ####VILLARREAL LABORATORYCLIA [id number] [place] [address] [place] Eosinophils (Bld) [#/Vol] 0.13 10*3/uL Normal <0.46 [facility] Comment on above: Order Comment: Speci men Type: BLOOD SPECIMENOrdering Facility: [facility] Address: [address] [place] [address] Performed By: #### 5 7021-8 ####VILLARREAL LABORATORYCLIA [id number] [place] [address] [place] Eosinophils/100 WBC (Bld) 1.1 % Normal [facility] Comment on above: Order Comment: Speci men Type: BLOOD SPECIMENOrdering Facility: [facility] Address: [address] [place] [address] Performed By: #### 5 7021-8 ####VILLARREAL LABORATORYCLIA [id number] [place] [address] [place] Erythrocyte distribution width (RBC) [Ratio] 16.0 % High 11.5-15.0 [facility] Comment on above: Order Comment: Speci men Type: BLOOD SPECIMENOrdering Facility: [facility] Address: [address] [place] [address] Performed By: #### 5 7021-8 ####VILLARREAL LABORATORYCLIA [id number] [place] [address] [place] Hematocrit (Bld) [Volume fraction] 24.0 % Low 36.0-46.0 [facility] Comment on above: Order Comment: Speci men Type: BLOOD SPECIMENOrdering Facility: [facility] Address: [address] [place] [address] Performed By: #### 5 7021-8 ####VILLARREAL LABORATORYCLIA [id number] [place] [address] [place] Hemoglobin (Bld) [Mass/Vol] 7.7 g/dL Low 11.5-15.5 [facility] Comment on above: Order Comment: Speci men Type: BLOOD SPECIMENOrdering Facility: [facility] Address: [address] [place] [address] Performed By: #### 5 7021-8 ####VILLARREAL LABORATORYCLIA [id number] [place] [address] [place] Immature granulocytes (Bld) [#/Vol] 0.19 10*3/uL High <0.10 [facility] Comment on above: Order Comment: Speci men Type: BLOOD SPECIMENOrdering Facility: [facility] Address: [address] [place] [address] Performed By: #### 5 7021-8 ####VILLARREAL LABORATORYCLIA [id number] [address] [place] Immature granulocytes/100 WBC (Bld) 1.6 % Normal [facility] Comment on above: Order Comment: Speci men Type: BLOOD SPECIMENOrdering Facility: [facility] Address: [address] [place] [address] Performed By: #### 5 7021-8 ####VILLARREAL LABORATORYCLIA [id number] [address] Lymphocytes (Bld) [#/Vol] 1.38 10*3/uL Normal 1.00-4.00 [facility] Comment on above: Order Comment: Speci men Type: BLOOD SPECIMENOrdering Facility: [facility] Address: [address] [place] [address] Performed By: #### 5 7021-8 ####VILLARREAL LABORATORYCLIA [id number] [address] Lymphocytes/100 WBC (Bld) 11.9 % Normal [facility] Comment on above: Order Comment: Speci men Type: BLOOD SPECIMENOrdering Facility: [facility] Address: [address] [place] [address] Performed By: #### 5 7021-8 ####VILLARREAL LABORATORYCLIA [id number] [address] MCH (RBC) [Entitic mass] 28.2 pg Normal 26.0-34.0 [facility] Comment on above: Order Comment: Speci men Type: BLOOD SPECIMENOrdering Facility: [facility] Address: [address] [place] [address] Performed By: #### 5 7021-8 ####VILLARREAL LABORATORYCLIA [id number] [address] MCHC (RBC) [Mass/Vol] 32.1 g/dL Normal 30.5-36.0 [facility] Comment on above: Order Comment: Speci men Type: BLOOD SPECIMENOrdering Facility: [facility] Address: [address] [place] [address] Performed By: #### 5 7021-8 ####VILLARREAL LABORATORYCLIA [id number] [address] MCV (RBC) [Entitic vol] 87.9 fL Normal 80.0-100.0 [facility] Comment on above: Order Comment: Speci men Type: BLOOD SPECIMENOrdering Facility: [facility] Address: [address] [place] [address] Performed By: #### 5 7021-8 ####VILLARREAL LABORATORYCLIA [id number] [place] [address] [place] Monocytes (Bld) [#/Vol] 0.77 10*3/uL Normal <0.87 [facility] Comment on above: Order Comment: Speci men Type: BLOOD SPECIMENOrdering Facility: [facility] Address: [address] [place] [address] Performed By: #### 5 7021-8 ####VILLARREAL LABORATORYCLIA [id number] [address] [place] Monocytes/100 WBC (Bld) 6.6 % Normal [facility] Comment on above: Order Comment: Speci men Type: BLOOD SPECIMENOrdering Facility: [facility] Address: [address] [place] [address] Performed By: #### 5 7021-8 ####VILLARREAL LABORATORYCLIA [id number] [place] [address] [place] Neutrophils (Bld) [#/Vol] 9.10 10*3/uL High 1.45-7.50 [facility] Comment on above: Order Comment: Speci men Type: BLOOD SPECIMENOrdering Facility: [facility] Address: [address] [place] [address] Performed By: #### 5 7021-8 ####VILLARREAL LABORATORYCLIA [id number] [place] [address] [place] Neutrophils/100 WBC (Bld) 78.5 % Normal [facility] Comment on above: Order Comment: Speci men Type: BLOOD SPECIMENOrdering Facility: [facility] Address: [address] [place] [address] Performed By: #### 5 7021-8 ####VILLARREAL LABORATORYCLIA [id number] [place] [address] [place] Nucleated RBC (Bld) [#/Vol] 10*3/uL Normal <0.01 [facility] Comment on above: Order Comment: Speci men Type: BLOOD SPECIMENOrdering Facility: [facility] Address: [address] [place] [address] Performed By: #### 5 7021-8 ####VILLARREAL LABORATORYCLIA [id number] [address] [place] Nucleated RBC/100 WBC (Bld) [Ratio] 0.0 /100 WBC Normal [facility] Comment on above: Order Comment: Speci men Type: BLOOD SPECIMENOrdering Facility: [facility] Address: [address] [place] [address] Performed By: #### 5 7021-8 ####VILLARREAL LABORATORYCLIA [id number] [address] Platelet mean volume (Bld) [Entitic vol] 8.4 fL Low 9.0-12.7 [facility] Comment on above: Order Comment: Speci men Type: BLOOD SPECIMENOrdering Facility: [facility] Address: [address] [place] [address] Performed By: #### 5 7021-8 ####VILLARREAL LABORATORYCLIA [id number] [address] [place] Platelets (Bld) [#/Vol] 577 10*3/uL High 150-400 [facility] Comment on above: Order Comment: Speci men Type: BLOOD SPECIMENOrdering Facility: [facility] Address: [address] [place] [address] Performed By: #### 5 7021-8 ####VILLARREAL LABORATORYCLIA [id number] [address] [place] RBC (Bld) [#/Vol] 2.73 10*6/uL Low 3.90-5.20 [facility] Comment on above: Order Comment: Speci men Type: BLOOD SPECIMENOrdering Facility: [facility] Address: [address] [place] [address] Performed By: #### 5 7021-8 ####VILLARREAL LABORATORYCLIA [id number] [place] [address] [place] WBC (Bld) [#/Vol] 11.60 10*3/uL High 3.70-11.00 [facility] Comment on above: Order Comment: Speci men Type: BLOOD SPECIMENOrdering Facility: [facility] Address: [address] [place] [address] Performed By: #### 5 7021-8 ####[facility] LABORATORYCLIA [id number] [place] [id number] [facility] [place] CONSULT PROGon 12-08-2024 CONSULT PRO Normal [facility] CONSULT PROG Normal [facility] CONSULT [facility] Comprehensive metabolic 2000 panelon 12-08-2024 Albumin [Mass/Vol] 2.6 g/dL Low 3.9-4.9 [facility] Comment on above: Order Comment: Speci men Type: BLOOD SPECIMENOrdering Facility: [facility] Address: [address] [place] [address] Performed By: #### 2 4323-8, 15575-6 ####[facility] LABORATORYCLIA [id number] [place] [address] [place] ALP [Catalytic activity/Vol] 106 U/L Normal 34-123 [facility] Comment on above: Order Comment: Speci men Type: BLOOD SPECIMENOrdering Facility: [facility] Address: [address] [place] [address] Performed By: #### 2 4323-8, 44846-9 ####[facility] LABORATORYCLIA [id number] [place] [id number] [place] ALT [Catalytic activity/Vol] U/L Low 7-38 [facility] Comment on above: Order Comment: Speci men Type: BLOOD SPECIMENOrdering Facility: [facility] Address: [address] [place] [address] Performed By: #### 2 4323-8, 11785-2 ####VILLARREAL LABORATORYCLIA [id number] [place] [address] [place] Anion gap [Moles/Vol] 8 mmol/L Normal 8-15 [facility] Comment on above: Order Comment: Speci men Type: BLOOD SPECIMENOrdering Facility: [facility] Address: [address] [place] [address] Performed By: #### 2 4323-8, ####VILLARREAL LABORATORYCLIA [id number] [place] [address] [place] AST [Catalytic activity/Vol] 20 U/L Normal 13-35 [facility] Comment on above: Order Comment: Speci men Type: BLOOD SPECIMENOrdering Facility: [facility] Address: [address] [facility] [place] [id number] Performed By: #### 2 4322-8, ####VILLARREAL LABORATORYCLIA [id number] [place] [address] [place] Bilirubin [Mass/Vol] mg/dL Low 0.2-1.3 [facility] Comment on above: Order Comment: Speci men Type: BLOOD SPECIMENOrdering Facility: [facility] Address: [address] [facility] [place] [address] Performed By: #### 2 8, ####VILLARREAL LABORATORYCLIA [id number] [place] [address] [place] Calcium [Mass/Vol] 9.0 mg/dL Normal 8.5-10.2 [facility] Comment on above: Order Comment: Speci men Type: BLOOD SPECIMENOrdering Facility: [facility] Address: [address] [place] [address] Performed By: #### 2 4323-8, ####VILLARREAL LABORATORYCLIA [id number] [place] [id number] [place] Chloride [Moles/Vol] 99 mmol/L Normal 98-107 [facility] Comment on above: Order Comment: Speci men Type: BLOOD SPECIMENOrdering Facility: [facility] Address: [facility] [place] [address] Performed By: #### 2 432-8, ####VLILARREAL LABORATORYCLIA [id number] [place] [address] [place] CO2 [Moles/Vol] 27 mmol/L Normal 22-30 [facility] Comment on above: Order Comment: Speci men Type: BLOOD SPECIMENOrdering Facility: [facility] Address: [address] [place] [address] Performed By: #### 2 4323-8, ####VILLARREAL LABORATORYCLIA [id number] [place] [id number] [place] Creatinine [Mass/Vol] 0.86 mg/dL Normal 0.58-0.96 [facility] Comment on above: Order Comment: Fan halina Type: BLOOD SPECIMENOrdering Facility: [facility] Address: [address] [place] [address] Performed By: #### 2 4323-8, ####VILLARREAL LABORATORYCLIA [id number] [place] [id number] [facility] Creatinine and Glomerular filtration rate.predicted panel (S/P/Bld) 65 mL/min/1.73m??? Normal >=60 [facility] Comment on above: Order Comment: Fan halina Type: BLOOD SPECIMENOrdering Facility: [facility] Address: [address] [place] [address] Result Comment: Hilda mated Glomerular Filtration Rate [...] Performed By: #### 2 4323-8, ####VILLARREAL LABORATORYCLIA [id number] [place] [id number] [place] Glucose [Mass/Vol] 170 mg/dL High 74-99 [facility] Comment on above: Order Comment: Fan meade Type: BLOOD SPECIMENOrdering Facility: [facility] Address: [address] [place] [address] Result Comment: The [place] [employer] Association (ADA) provides guidance for cutoff [...] Standards of Medical Care in Diabetes 2016, [place] [employer]. Diabetes Care. 2016.39(Suppl 1). Performed By: #### 2 8, ####VILLARREAL LABORATORYCLIA [id number] [place] [address] [place] Potassium [Moles/Vol] 4.5 mmol/L Normal 3.7-5.1 [facility] Comment on above: Order Comment: Fan meade Type: BLOOD SPECIMENOrdering Facility: [facility] Address: [address] [place], [place] [address] Performed By: #### 2 4323-06, ####VILLARREAL LABORATORYCLIA [id number] [place] [address] [place] Protein [Mass/Vol] 5.3 g/dL Low 6.3-8.0 [facility] Comment on above: Order Comment: Fan meade Type: BLOOD SPECIMENOrdering Facility: [facility] Address: [address] [place] [address] Performed By: #### 2 4323-06, ####VILLARREAL LABORATORYCLIA [id number] [place] [id number] [place] Sodium [Moles/Vol] 134 mmol/L Low 136-144 [facility] Comment on above: Order Comment: Fan meade Type: BLOOD SPECIMENOrdering Facility: [facility] Address: [address] [place] [id number] Performed By: #### 2 4323-06, ####VILLARREAL LABORATORYCLIA [id number] [place] [id number] [place] Urea nitrogen [Mass/Vol] 45 mg/dL High 7-21 [facility] Comment on above: Order Comment: Fan meade Type: BLOOD SPECIMENOrdering Facility: [facility] Address: [address] [place], [place] [address] Performed By: #### 2 4323-8, 91003-3 ####VILLARREAL LABORATORYCLIA [id number] [place] [address] [place] Magnesium SerPl-mCncon 12-08 Magnesium [Mass/Vol] 1.7 mg/dL Normal 1.7-2.3 [facility] Comment on above: Order Comment: Speci men Type: BLOOD SPECIMENOrdering Facility: [facility] Address: [address] [address] Performed By: #### 2 4323-8, 82492-9 ####VILLARREAL LABORATORYCLIA [id number] [address] [place] OCCULT BLD EXAM-DIAGon 12-08 OCCULT BLD EXAM-DIAG Negative Normal [facility] Comment on above: Performed By: #### O BDX ####VILLARREAL LABORATORYCLIA [id number] [place] [address] [place] ALLIED HEALTHon 12-07-2024 ALLIED HEALTH [facility] CASE MANAGEMon 12-07-2024 CASE MANAGEM [facility] CBC W Auto Differential pane l (Bld)on 12-07-2024 Basophils (Bld) [#/Vol] 10*3/uL Normal <0.11 [facility] Comment on above: Order Comment: Speci men Type: BLOOD SPECIMENOrdering Facility: [facility] Address: [address] [place] [address] Performed By: #### 5 7021-8 ####VILLARREAL LABORATORYCLIA [id number] [address] [place] Basophils/100 WBC (Bld) 0.2 % Normal [facility] Comment on above: Order Comment: Speci men Type: BLOOD SPECIMENOrdering Facility: [facility] Address: [facility] [place] [address] Performed By: #### 5 7021-8 ####VILLARREAL LABORATORYCLIA [id number] [place] [address] [place] Differential cell count method Nom (Bld) Auto Normal [facility] Comment on above: Order Comment: Speci men Type: BLOOD SPECIMENOrdering Facility: [facility] Address: [address] [place] [address] Performed By: #### 5 7021-8 ####VILLARREAL LABORATORYCLIA [id number] [place] [address] [place] Eosinophils (Bld) [#/Vol] 0.09 10*3/uL Normal <0.46 [facility] Comment on above: Order Comment: Speci men Type: BLOOD SPECIMENOrdering Facility: [facility] Address: [address] [place] [address] Performed By: #### 5 7021-8 ####VILLARREAL LABORATORYCLIA [id number] [address] Eosinophils/100 WBC (Bld) 0.8 % Normal [facility] Comment on above: Order Comment: Speci men Type: BLOOD SPECIMENOrdering Facility: [facility] Address: [address] [place] [address] Performed By: #### 5 7021-8 ####VILLARREAL LABORATORYCLIA [id number] [address] [place] Erythrocyte distribution width (RBC) [Ratio] 16.0 % High 11.5-15.0 [facility] Comment on above: Order Comment: Speci men Type: BLOOD SPECIMENOrdering Facility: [facility] Address: [address] [place] [address] Performed By: #### 5 7021-8 ####VILLARREAL LABORATORYCLIA [id number] [address] [place] Hematocrit (Bld) [Volume fraction] 25.2 % Low 36.0-46.0 [facility] Comment on above: Order Comment: Speci men Type: BLOOD SPECIMENOrdering Facility: [facility] Address: [address] [place] [address] Performed By: #### 5 7021-8 ####VILLARREAL LABORATORYCLIA [id number] [address] [place] Hemoglobin (Bld) [Mass/Vol] 8.2 g/dL Low 11.5-15.5 [facility] Comment on above: Order Comment: Speci men Type: BLOOD SPECIMENOrdering Facility: [facility] Address: [address] [place] [address] Performed By: #### 5 7021-8 ####VILLARREAL LABORATORYCLIA [id number] [address] Immature granulocytes (Bld) [#/Vol] 0.18 10*3/uL High <0.10 [facility] Comment on above: Order Comment: Speci men Type: BLOOD SPECIMENOrdering Facility: [facility] Address: [address] [place] [address] Performed By: #### 5 7021-8 ####VILLARREAL LABORATORYCLIA [id number] [address] Immature granulocytes/100 WBC (Bld) 1.6 % Normal [facility] Comment on above: Order Comment: Speci men Type: BLOOD SPECIMENOrdering Facility: [facility] Address: [address] [place] [address] Performed By: #### 5 7021-8 ####VILLARREAL LABORATORYCLIA [id number] [address] [place] Lymphocytes (Bld) [#/Vol] 0.83 10*3/uL Low 1.00-4.00 [facility] Comment on above: Order Comment: Speci men Type: BLOOD SPECIMENOrdering Facility: [facility] Address: [address] [place] [address] Performed By: #### 5 7021-8 ####VILLARREAL LABORATORYCLIA [id number] [address] Lymphocytes/100 WBC (Bld) 7.6 % Normal [facility] Comment on above: Order Comment: Speci men Type: BLOOD SPECIMENOrdering Facility: [facility] Address: [address] [place] [address] Performed By: #### 5 7021-8 ####VILLARREAL LABORATORYCLIA [id number] [address] [place] MCH (RBC) [Entitic mass] 28.5 pg Normal 26.0-34.0 [facility] Comment on above: Order Comment: Speci men Type: BLOOD SPECIMENOrdering Facility: [facility] Address: [address] [place] [address] Performed By: #### 5 7021-8 ####VILLARREAL LABORATORYCLIA [id number] [place] [address] [place] MCHC (RBC) [Mass/Vol] 32.5 g/dL Normal 30.5-36.0 [facility] Comment on above: Order Comment: Speci men Type: BLOOD SPECIMENOrdering Facility: [facility] Address: [address] [place] [address] Performed By: #### 5 7021-8 ####VILLARREAL LABORATORYCLIA [id number] [address] [place] MCV (RBC) [Entitic vol] 87.5 fL Normal 80.0-100.0 [facility] Comment on above: Order Comment: Speci men Type: BLOOD SPECIMENOrdering Facility: [facility] Address: [address] [place] [address] Performed By: #### 5 7021-8 ####VILLARREAL LABORATORYCLIA [id number] [place] [address] [place] Monocytes (Bld) [#/Vol] 0.81 10*3/uL Normal <0.87 [facility] Comment on above: Order Comment: Speci men Type: BLOOD SPECIMENOrdering Facility: [facility] Address: [address] [place] [address] Performed By: #### 5 7021-8 ####VILLARREAL LABORATORYCLIA [id number] [address] [place] Monocytes/100 WBC (Bld) 7.4 % Normal [facility] Comment on above: Order Comment: Speci men Type: BLOOD SPECIMENOrdering Facility: [facility] Address: [address] [place] [address] Performed By: #### 5 7021-8 ####VILLARREAL LABORATORYCLIA [id number] [place] [address] [place] Neutrophils (Bld) [#/Vol] 8.99 10*3/uL High 1.45-7.50 [facility] Comment on above: Order Comment: Speci men Type: BLOOD SPECIMENOrdering Facility: [facility] Address: [address] [place] [address] Performed By: #### 5 7021-8 ####VILLARREAL LABORATORYCLIA [id number] [address] [place] Neutrophils/100 WBC (Bld) 82.4 % Normal [facility] Comment on above: Order Comment: Speci men Type: BLOOD SPECIMENOrdering Facility: [facility] Address: [address] [place] [address] Performed By: #### 5 7021-8 ####VILLARREAL LABORATORYCLIA [id number] [place] [address] [place] Nucleated RBC (Bld) [#/Vol] 10*3/uL Normal <0.01 [facility] Comment on above: Order Comment: Speci men Type: BLOOD SPECIMENOrdering Facility: [facility] Address: [address] [place] [address] Performed By: #### 5 7021-8 ####VILLARREAL LABORATORYCLIA [id number] [address] [place] [facility] Nucleated RBC/100 WBC (Bld) [Ratio] 0.0 /100 WBC Normal [facility] Comment on above: Order Comment: Speci men Type: BLOOD SPECIMENOrdering Facility: [facility] Address: [address] [place] [address] Performed By: #### 5 7021-8 ####VILLARREAL LABORATORYCLIA [id number] [place] [address] [place] Platelet mean volume (Bld) [Entitic vol] 8.3 fL Low 9.0-12.7 [facility] Comment on above: Order Comment: Speci men Type: BLOOD SPECIMENOrdering Facility: [facility] Address: [address] [place] [address] Performed By: #### 5 7021-8 ####VILLARREAL LABORATORYCLIA [id number] [address] Platelets (Bld) [#/Vol] 564 10*3/uL High 150-400 [facility] Comment on above: Order Comment: Speci men Type: BLOOD SPECIMENOrdering Facility: [facility] Address: [address] [place] [address] Performed By: #### 5 7021-8 ####[place] LABORATORYCLIA [id number] [address] [place] RBC (Bld) [#/Vol] 2.88 10*6/uL Low 3.90-5.20 [facility] Comment on above: Order Comment: Speci men Type: BLOOD SPECIMENOrdering Facility: [facility] Address: [address] [place] [address] Performed By: #### 5 7021-8 ####[place] LABORATORYCLIA [id number] [address] WBC (Bld) [#/Vol] 10.92 10*3/uL Normal 3.70-11.00 [facility] Comment on above: Order Comment: Speci men Type: BLOOD SPECIMENOrdering Facility: [facility] Address: [address] [place] [address] Performed By: #### 5 7021-8 ####[place] LABORATORYCLIA [id number] [address] CONSULTon 12-07-2024 CONSULT Normal [facility] CONSULT PROGon 12-07-2024 CONSULT PROG Normal [facility] CONSULT PROG Normal [facility] CONSULT PROG Normal [facility] CONSULT PRO Normal [facility] CRP SerPl-mCncon 12-07-2024 CRP [Mass/Vol] 3.6 mg/dL High <0.9 [facility] Comment on above: Order Comment: Speci men Type: BLOOD SPECIMENOrdering Facility: [facility] Address: [address] [place] [address] Performed By: #### 1 988-5, 07266-2, 33204-2, 3040-3 ####[facility] LABORATORYCLIA [id number] [address] Comprehensive metabolic 2000 panelon 12-07-2024 Albumin [Mass/Vol] 2.6 g/dL Low 3.9-4.9 [facility] Comment on above: Order Comment: Speci men Type: BLOOD SPECIMENOrdering Facility: [facility] Address: [address] [place] [address] Performed By: #### 1 988-5, 68666-5, 92444-4, 3040-3 ####[facility]ORATORYCLIA [id number] [place] [address] [place] [facility] ALP [Catalytic activity/Vol] 111 U/L Normal 34-123 [facility] Comment on above: Order Comment: Speci men Type: BLOOD SPECIMENOrdering Facility: [facility] Address: [address] [place] [address] Performed By: #### 1 988-5, 36356-6, 54426-7, 3040-3 ####[facility] LABORATORYCLIA [id number] [address] [place] [facility] [facility] ALT [Catalytic activity/Vol] U/L Low 7-38 [facility] Comment on above: Order Comment: Speci men Type: BLOOD SPECIMENOrdering Facility: [facility] Address: [address] [place] [address] Performed By: #### 1 988-5, 19149-5, 14895-6, 3040-3 ####VILLARREAL LABORATORYCLIA [id number] [place] [address] [facility] Anion gap [Moles/Vol] 9 mmol/L Normal 8-15 [facility] Comment on above: Order Comment: Speci men Type: BLOOD SPECIMENOrdering Facility: [facility] Address: [address] [place] [address] Performed By: #### 1 988-5, 14177-0, 45131-7, 3040-3 ####VILLARREAL LABORATORYCLIA [id number] [place] [address] [facility] AST [Catalytic activity/Vol] 29 U/L Normal 13-35 [facility] Comment on above: Order Comment: Speci men Type: BLOOD SPECIMENOrdering Facility: [facility] Address: [address] [place] [address] Performed By: #### 1 988-5, 16621-7, 14602-3, 3040-3 ####VILLARREAL LABORATORYCLIA [id number] [place] [address] [place] Bilirubin [Mass/Vol] mg/dL Low 0.2-1.3 [facility] Comment on above: Order Comment: Speci men Type: BLOOD SPECIMENOrdering Facility: [facility] Address: [address] [place] [address] [place] [address] Performed By: #### 1 988-5, 87478-7, 96118-9, 0-3 ####VILLARREAL LABORATORYCLIA [id number] [place] [address] [place] Calcium [Mass/Vol] 9.3 mg/dL Normal 8.5-10.2 [facility] Comment on above: Order Comment: Speci men Type: BLOOD SPECIMENOrdering Facility: [facility] Address: [address] [place] [address] Performed By: #### 1 988-5, 88030-8, 95422-7, 3040-3 ####VILLARREAL LABORATORYCLIA [id number] [place] [address] [place] Chloride [Moles/Vol] 98 mmol/L Normal 98-107 [facility] Comment on above: Order Comment: Speci men Type: BLOOD SPECIMENOrdering Facility: [facility] Address: [address] [place] [address] [place] [address] Performed By: #### 1 988-5, 83259-8, 96792-0, 3040-3 ####VILLARREAL LABORATORYCLIA [id number] [place] [address] [place] CO2 [Moles/Vol] 28 mmol/L Normal 22-30 [facility] Comment on above: Order Comment: Speci men Type: BLOOD SPECIMENOrdering Facility: [facility] Address: [address] [place] [address] [place] [address] Performed By: #### 1 988-5, 11793-6, 44659-2, 3040-3 ####VILLARREAL LABORATORYCLIA [id number] [place] [address] [place] Creatinine [Mass/Vol] 0.76 mg/dL Normal 0.58-0.96 [facility] Comment on above: Order Comment: Fan meade Type: BLOOD SPECIMENOrdering Facility: [facility] Address: [address] [place] [address] Performed By: #### 1 988-5, 29840-5, 96058-8, 0-3 ####[facility] LABORATORYCLIA [id number] [place] [id number] [facility] Creatinine and Glomerular filtration rate.predicted panel (S/P/Bld) 75 mL/min/1.73m??? Normal >=60 [facility] Comment on above: Order Comment: [facility] Type: BLOOD SPECIMENOrdering Facility: [facility] Address: [address] [place] [address] Result Comment: Hilda mated Glomerular Filtration Rate [...] actual GFR. Performed By: #### 1 988-5, 05882-5, 39863-4, 0-3 ####[facility] LABORATORYCLIA [id number] [place] [id number] [place] [facility] Glucose [Mass/Vol] 260 mg/dL High 74-99 [facility] Comment on above: Order Comment: Fan meade Type: BLOOD SPECIMENOrdering Facility: [facility] Address: [address] [place] [address] Result Comment: The [place] Diabetes Association (ADA) provides guidance for cutoff [...] Standards of Medical Care in Diabetes 2016, [place] [employer]. Diabetes Care. 2016.39(Suppl 1). Performed By: #### 1 988-5, 20529-2, 69808-1, 3040-3 ####VILLARREAL LABORATORYCLIA [id number] [place] [address] [place] Potassium [Moles/Vol] 4.5 mmol/L Normal 3.7-5.1 [facility] Comment on above: Order Comment: Speci men Type: BLOOD SPECIMENOrdering Facility: [facility] Address: [address] [place] [address] Performed By: #### 1 988-5, 70274-7, 69808-8, 0-3 ####VILLARREAL LABORATORYCLIA [id number] [place] [address] [place] Protein [Mass/Vol] 5.5 g/dL Low 6.3-8.0 [facility] Comment on above: Order Comment: Speci men Type: BLOOD SPECIMENOrdering Facility: [facility] Address: [address] [place] [address] Performed By: #### 1 988-5, 16102-0, 07431-7, 0-3 ####VILLARREAL LABORATORYCLIA [id number] [place] [id number] [place] Sodium [Moles/Vol] 135 mmol/L Low 136-144 [facility] Comment on above: Order Comment: Speci men Type: BLOOD SPECIMENOrdering Facility: [facility] Address: [address] [place] [address] Performed By: #### 1 988-5, 95885-7, 15875-1, 3040-3 ####VILLARREAL LABORATORYCLIA [id number] [place] [id number] [place] Urea nitrogen [Mass/Vol] 43 mg/dL High 7-21 [facility] Comment on above: Order Comment: Speci men Type: BLOOD SPECIMENOrdering Facility: [facility] Address: [address] [place] [address] Performed By: #### 1 988-5, 03306-7, 33277-3, 3040-3 ####[facility] LABORATORYCLIA [id number] [place] [address] [place] ESR Westergren method (Bld) [Velocity]on 12-07-2024 ESR (Bld) [Velocity] 103 mm/h High 0-20 [facility] Comment on above: Order Comment: Speci men Type: BLOOD SPECIMENOrdering Facility: [facility] Address: [address] [place] [address] Performed By: #### 4 537-7 ####[facility] LABCLIA [id number] [place] [address] [place] Folate SerPl-mCncon 12-07-19 25 Folate [Mass/Vol] 7.7 ng/mL Normal >4.7 [facility] Comment on above: Order Comment: Speci men Type: BLOOD SPECIMENOrdering Facility: [facility] Address: [address] [place] [address] Performed By: #### 2 284-8, 2132-9 ####[facility] LABORATORYCLIA [id number] [place] [address] [place] Lipase SerPl-cCncon 12-07-19 25 Lipase [Catalytic activity/Vol] 50 U/L Normal 16-61 [facility] Comment on above: Order Comment: Speci men Type: BLOOD SPECIMENOrdering Facility: [facility] Address: [address] [place] [address] Performed By: #### 1 988-5, 93335-6, 26607-6, 3040-3 ####[facility] LABORATORYCLIA [id number] [address] [place] Magnesium SerPl-mCncon 12-07 Magnesium [Mass/Vol] 1.7 mg/dL Normal 1.7-2.3 [facility] Comment on above: Order Comment: Speci men Type: BLOOD SPECIMENOrdering Facility: [facility] Address: [address] [place] [id number] Performed By: #### 1 988-5, 75150-1, 35679-6, 3040-3 ####VILLARREAL LABORATORYCLIA [id number] [place] [address] [place] US DVT LOWER BILon US DVT LOWER RADHA Normal [facility] Vit B12 SerPl-mCncon 025 Cobalamin (Vitamin B12) [Mass/Vol] 400 pg/mL Normal 232-1245 [facility] Comment on above: Order Comment: Speci men Type: BLOOD SPECIMENOrdering Facility: [facility] Address: [address] [place] [address] Performed By: #### 2 284-8, 2132-9 ####[facility] LABORATORYCLIA [id number] [place] [address] [place] XR ABD 2V SUPINE W UPR/DECUB /CTLon 12-07-2024 XR ABD 2V SUPINE W UPR/DECUB/CTL Normal [facility] CASE MANAGEMon 12-06-2024 CASE MANAGEM Normal [facility] CBC W Auto Differential pane l (Bld)on 12-06-2024 Basophils (Bld) [#/Vol] 0.03 10*3/uL Normal <0.11 [facility] Comment on above: Order Comment: Speci men Type: BLOOD SPECIMENOrdering Facility: [facility] Address: [address] [place] [address] Performed By: #### 5 7021-8 ####VILLARREAL LABORATORYCLIA [id number] [address] OF [facility] Basophils/100 WBC (Bld) 0.2 % Normal [facility] Comment on above: Order Comment: Speci men Type: BLOOD SPECIMENOrdering Facility: [facility] Address: [address] [place] [address] Performed By: #### 5 7021-8 ####VILLARREAL LABORATORYCLIA [id number] [address] [place] Differential cell count method Nom (Bld) Auto Normal [facility] Comment on above: Order Comment: Speci men Type: BLOOD SPECIMENOrdering Facility: [facility] Address: [address] [place] [address] Performed By: #### 5 7021-8 ####VILLARREAL LABORATORYCLIA [id number] [place] [address] [place] Eosinophils (Bld) [#/Vol] 0.09 10*3/uL Normal <0.46 [facility] Comment on above: Order Comment: Speci men Type: BLOOD SPECIMENOrdering Facility: [facility] Address: [address] [place] [address] Performed By: #### 5 7021-8 ####VILLARREAL LABORATORYCLIA [id number] [place] [address] [place] Eosinophils/100 WBC (Bld) 0.6 % Normal [facility] Comment on above: Order Comment: Speci men Type: BLOOD SPECIMENOrdering Facility: [facility] Address: [address] [place] [address] Performed By: #### 5 7021-8 ####VILLARREAL LABORATORYCLIA [id number] [place] [address] [place] Erythrocyte distribution width (RBC) [Ratio] 15.9 % High 11.5-15.0 [facility] Comment on above: Order Comment: Speci men Type: BLOOD SPECIMENOrdering Facility: [facility] Address: [address] [place] [address] Performed By: #### 5 7021-8 ####VILLARREAL LABORATORYCLIA [id number] [address] [place] Hematocrit (Bld) [Volume fraction] 25.5 % Low 36.0-46.0 [facility] Comment on above: Order Comment: Speci men Type: BLOOD SPECIMENOrdering Facility: [facility] Address: [address] [place] [address] Performed By: #### 5 7021-8 ####VILLARREAL LABORATORYCLIA [id number] [place] [address] [place] Hemoglobin (Bld) [Mass/Vol] 8.3 g/dL Low 11.5-15.5 [facility] Comment on above: Order Comment: Speci men Type: BLOOD SPECIMENOrdering Facility: [facility] Address: [address] [place] [address] Performed By: #### 5 7021-8 ####VILLARREAL LABORATORYCLIA [id number] [address] Immature granulocytes (Bld) [#/Vol] 0.15 10*3/uL High <0.10 [facility] Comment on above: Order Comment: Speci men Type: BLOOD SPECIMENOrdering Facility: [facility] Address: [address] [place] [address] Performed By: #### 5 7021-8 ####VILLARREAL LABORATORYCLIA [id number] [address] Immature granulocytes/100 WBC (Bld) 1.0 % Normal [facility] Comment on above: Order Comment: Speci men Type: BLOOD SPECIMENOrdering Facility: [facility] Address: [address] [place] [address] Performed By: #### 5 7021-8 ####VILLARREAL LABORATORYCLIA [id number] [address] [place] [facility] Lymphocytes (Bld) [#/Vol] 0.98 10*3/uL Low 1.00-4.00 [facility] Comment on above: Order Comment: Speci men Type: BLOOD SPECIMENOrdering Facility: [facility] Address: [address] [place] [address] Performed By: #### 5 7021-8 ####VILLARREAL LABORATORYCLIA [id number] [address] Lymphocytes/100 WBC (Bld) 6.7 % Normal [facility] Comment on above: Order Comment: Speci men Type: BLOOD SPECIMENOrdering Facility: [facility] Address: [address] [place] [address] Performed By: #### 5 7021-8 ####VILLARREAL LABORATORYCLIA [id number] [address] [place] MCH (RBC) [Entitic mass] 27.9 pg Normal 26.0-34.0 [facility] Comment on above: Order Comment: Speci men Type: BLOOD SPECIMENOrdering Facility: [facility] Address: [address] [place] [address] Performed By: #### 5 7021-8 ####VILLARREAL LABORATORYCLIA [id number] [address] [place] [facility] MCHC (RBC) [Mass/Vol] 32.5 g/dL Normal 30.5-36.0 [facility] Comment on above: Order Comment: Speci men Type: BLOOD SPECIMENOrdering Facility: [facility] Address: [address] [place] [address] Performed By: #### 5 7021-8 ####VILLARREAL LABORATORYCLIA [id number] [address] [place] MCV (RBC) [Entitic vol] 85.9 fL Normal 80.0-100.0 [facility] Comment on above: Order Comment: Speci men Type: BLOOD SPECIMENOrdering Facility: [facility] Address: [address] [place] [address] Performed By: #### 5 7021-8 ####VILLARREAL LABORATORYCLIA [id number] [place] [address] [place] Monocytes (Bld) [#/Vol] 0.94 10*3/uL High <0.87 [facility] Comment on above: Order Comment: Speci men Type: BLOOD SPECIMENOrdering Facility: [facility] Address: [address] [place] [address] Performed By: #### 5 7021-8 ####VILLARRE[facility] LABORATORYCLIA [id number] [address] Monocytes/100 WBC (Bld) 6.5 % Normal [facility] Comment on above: Order Comment: Speci men Type: BLOOD SPECIMENOrdering Facility: [facility] Address: [address] [place] [address] Performed By: #### 5 7021-8 ####VILLARREAL LABORATORYCLIA [id number] [place] [address] [place] Neutrophils (Bld) [#/Vol] 12.37 10*3/uL High 1.45-7.50 [facility] Comment on above: Order Comment: Speci men Type: BLOOD SPECIMENOrdering Facility: [facility] Address: [address] [place] [address] Performed By: #### 5 7021-8 ####VILLARRE[facility] LABORATORYCLIA [id number] [address] Neutrophils/100 WBC (Bld) 85.0 % Normal [facility] Comment on above: Order Comment: Speci men Type: BLOOD SPECIMENOrdering Facility: [facility] Address: [address] [place] [address] Performed By: #### 5 7021-8 ####VILLARRE[facility] LABORATORYCLIA [id number] [place] [address] [place] Nucleated RBC (Bld) [#/Vol] 10*3/uL Normal <0.01 [facility] Comment on above: Order Comment: Speci men Type: BLOOD SPECIMENOrdering Facility: [facility] Address: [address] [place] [address] Performed By: #### 5 7021-8 ####VILLARRE[facility] LABORATORYCLIA [id number] [place] [address] [place] Nucleated RBC/100 WBC (Bld) [Ratio] 0.0 /100 WBC Normal [facility] Comment on above: Order Comment: Speci men Type: BLOOD SPECIMENOrdering Facility: [facility] Address: [address] [place] [address] Performed By: #### 5 7021-8 ####VILLARREAL LABORATORYCLIA [id number] [place] [address] [place] Platelet mean volume (Bld) [Entitic vol] 8.3 fL Low 9.0-12.7 [facility] Comment on above: Order Comment: Speci men Type: BLOOD SPECIMENOrdering Facility: [facility] Address: [address] [place] [address] Performed By: #### 5 7021-8 ####VILLARREAL LABORATORYCLIA [id number] [place] [address] [place] Platelets (Bld) [#/Vol] 602 10*3/uL High 150-400 [facility] Comment on above: Order Comment: Speci men Type: BLOOD SPECIMENOrdering Facility: [facility] Address: [address] [place], [place] [address] Performed By: #### 5 7021-8 ####VILLARREAL LABORATORYCLIA [id number] [address] [place] RBC (Bld) [#/Vol] 2.97 10*6/uL Low 3.90-5.20 [facility] Comment on above: Order Comment: Speci men Type: BLOOD SPECIMENOrdering Facility: [facility] Address: [address] [place] [address] Performed By: #### 5 7021-8 ####[facility] LABORATORYCLIA [id number] [address] WBC (Bld) [#/Vol] 14.56 10*3/uL High 3.70-11.00 [facility] Comment on above: Order Comment: Speci men Type: BLOOD SPECIMENOrdering Facility: [facility] Address: [address] [place] [address] Performed By: #### 5 7021-8 ####[facility] LABORATORYCLIA [id number] [address] [place] CONSULTon 12-06-2024 CONSULT Normal [facility] CONSULT Normal [facility] CONSULT PROGon 12-06-2024 CONSULT PROG [facility] CONSULT PROG Normal [facility] Comprehensive metabolic 2000 panelon 12-06-2024 Albumin [Mass/Vol] 2.5 g/dL Low 3.9-4.9 [facility] Comment on above: Order Comment: Speci men Type: BLOOD SPECIMENOrdering Facility: [facility] Address: [address] [place] [address] Performed By: #### 2 951-2, 05393-6, 32079-6 ####[facility] LABORATORYCLIA [id number] [address] [place] ALP [Catalytic activity/Vol] 112 U/L Normal 34-123 [facility] Comment on above: Order Comment: Speci men Type: BLOOD SPECIMENOrdering Facility: [facility] Address: [address] [place] [address] Performed By: #### 2 951-2, , ####VILLARREAL LABORATORYCLIA [id number] [place] [address] [place] ALT [Catalytic activity/Vol] U/L Low 7-38 [facility] Comment on above: Order Comment: Speci men Type: BLOOD SPECIMENOrdering Facility: [facility] Address: [facility] [place] [address] Performed By: #### 2 951-2, , ####VILLARREAL LABORATORYCLIA [id number] [place] [id number] [place] Anion gap [Moles/Vol] 10 mmol/L Normal 8-15 [facility] Comment on above: Order Comment: Speci men Type: BLOOD SPECIMENOrdering Facility: [facility] Address: [address] [place] [address] [place] [address] Performed By: #### 2 951-2, , ####VILLARREAL LABORATORYCLIA [id number] [place] [address] [place] AST [Catalytic activity/Vol] 25 U/L Normal 13-35 [facility] Comment on above: Order Comment: Speci men Type: BLOOD SPECIMENOrdering Facility: [facility] Address: [facility] [place] [address] Performed By: #### 2 951-2, , ####VILLARREAL LABORATORYCLIA [id number] [place] [address] [place] Bilirubin [Mass/Vol] mg/dL Low 0.2-1.3 [facility] Comment on above: Order Comment: Speci men Type: BLOOD SPECIMENOrdering Facility: [facility] Address: [facility] [place] [address] Performed By: #### 2 951-2, , ####VILLARREAL LABORATORYCLIA [id number] [place] [id number] [place] Calcium [Mass/Vol] 9.5 mg/dL Normal 8.5-10.2 [facility] Comment on above: Order Comment: Speci men Type: BLOOD SPECIMENOrdering Facility: [facility] Address: [address] [place] [address] Performed By: #### 2 951-2, , ####VILLARREAL LABORATORYCLIA [id number] [place] [address] [place] Chloride [Moles/Vol] 97 mmol/L Low 98-107 [facility] Comment on above: Order Comment: Speci men Type: BLOOD SPECIMENOrdering Facility: [facility] Address: [address] [place] [address] Performed By: #### 2 951-2, , ####VILLARREAL LABORATORYCLIA [id number] [place] [address] [place] CO2 [Moles/Vol] 27 mmol/L Normal 22-30 [facility] Comment on above: Order Comment: Speci men Type: BLOOD SPECIMENOrdering Facility: [facility] Address: [address] [place] [address] Performed By: #### 2 951-2, , ####VILLARREAL LABORATORYCLIA [id number] [place] [address] [place] Creatinine [Mass/Vol] 0.95 mg/dL Normal 0.58-0.96 [facility] Comment on above: Order Comment: Speci men Type: BLOOD SPECIMENOrdering Facility: [facility] Address: [address] [place] [address] Performed By: #### 2 951-2, , ####VILLARREAL LABORATORYCLIA [id number] [place] [id number] [place] Creatinine and Glomerular filtration rate.predicted panel (S/P/Bld) 58 mL/min/1.73m??? Low >=60 [facility] Comment on above: Order Comment: Speci men Type: BLOOD SPECIMENOrdering Facility: [facility] Address: [address] [place], [place] [address] Result Comment: Hilda mated Glomerular Filtration Rate [...] GFR. Performed By: #### 2 951-2, , ####[facility] LABORATORYCLIA [id number] [place] [id number] [place] Glucose [Mass/Vol] 93 mg/dL Normal 74-99 [facility] Comment on above: Order Comment: Fan meade Type: BLOOD SPECIMENOrdering Facility: [facility] Address: [address] [place] [address] Result Comment: The [place] Diabetes [employer] (ADA) provides guidance for cutoff [...] Standards of Medical Care in Diabetes 2016, [place] [employer]. Diabetes Care. 2016.39(Suppl 1). Performed By: #### 2 951-2, , ####[facility] LABORATORYCLIA [id number] [place] [id number] [place] Potassium [Moles/Vol] 3.8 mmol/L Normal 3.7-5.1 [facility] Comment on above: Order Comment: Fan meade Type: BLOOD SPECIMENOrdering Facility: [facility] Address: [address] [place] [address] Performed By: #### 2 951-2, 71169-7, 70825-6 ####[facility] LABORATORYCLIA [id number] [place] [address] [place] Protein [Mass/Vol] 5.7 g/dL Low 6.3-8.0 [facility] Comment on above: Order Comment: Speci men Type: BLOOD SPECIMENOrdering Facility: [facility] Address: [address] [place] [address] Performed By: #### 2 951-2, , ####VILLARRE[facility] LABORATORYCLIA [id number] [place] [address] [place] Urea nitrogen [Mass/Vol] 45 mg/dL High 7-21 [facility] Comment on above: Order Comment: Speci men Type: BLOOD SPECIMENOrdering Facility: [facility] Address: [address] [place] [address] Performed By: #### 2 951-2, , ####VILLARRE[facility] LABORATORYCLIA [id number] [place] [address] [place] Magnesium SerPl-mCncon 12-06 Magnesium [Mass/Vol] 1.8 mg/dL Normal 1.7-2.3 [facility] Comment on above: Order Comment: Speci men Type: BLOOD SPECIMENOrdering Facility: [facility] Address: [address] [place] [address] Performed By: #### 2 951-2, , ####VILLARREAL LABORATORYCLIA [id number] [place] [address] [place] Sodium SerPl-sCncon 12-06-19 25 Sodium [Moles/Vol] 135 mmol/L Low 136-144 [facility] Comment on above: Order Comment: Speci men Type: BLOOD SPECIMENOrdering Facility: [facility] Address: [address] [place] [address] Performed By: #### 2 951-2 ####VILLARRE[facility] LABORATORYCLIA [id number] [place] [address] [place] Sodium [Moles/Vol] 132 mmol/L Low 136-144 [facility] Comment on above: Order Comment: Speci men Type: BLOOD SPECIMENOrdering Facility: [facility] Address: [address] [place] [address] Performed By: #### 2 951-2 ####VILLARRE[facility] LABORATORYCLIA [id number] [place] [address] [place] Sodium [Moles/Vol] 136 mmol/L Normal 136-144 [facility] Comment on above: Order Comment: Speci men Type: BLOOD SPECIMENOrdering Facility: [facility] Address: [address] [place] [address] Performed By: #### 2 951-2 ####VILLARRE[facility] LABORATORYCLIA [id number] [place] [address] [place] Sodium [Moles/Vol] 134 mmol/L Low 136-144 [facility] Comment on above: Order Comment: Speci men Type: BLOOD SPECIMENOrdering Facility: [facility] Address: [address] [place] [address] Performed By: #### 2 951-2, 57126-4, 01583-1 ####VILLAR[facility] LABORATORYCLIA [id number] [place] [address] [place] Sodium [Moles/Vol] 131 mmol/L Low 136-144 [facility] Comment on above: Order Comment: Speci men Type: BLOOD SPECIMENOrdering Facility: [facility] Address: [address] [place] [address] Performed By: #### 2 951-2 ####VILLARRE[facility] LABORATORYCLIA [id number] [place] [address] [place] THERAPY NTon 12-06-2024 THERAPY NT Normal [facility] URINALYSIS, REFLEX MICROSCOP ICon 12-06-2024 Bilirubin Ql (U) Negative Normal Negative [facility] Comment on above: Order Comment: Speci men Type: URINE SPECIMENOrdering Facility: [facility] Address: [address] [place] [address] Performed By: #### L [id number] ####VILLARREAL LABORATORYCLIA [id number] [place] [address] [place] Clarity (Unsp spec) Clear Normal Clear [facility] Comment on above: Order Comment: Speci men Type: URINE SPECIMENOrdering Facility: [facility] Address: [address] [place] [address] Performed By: #### L [id number] ####VILLARREAL LABORATORYCLIA [id number] [address] [place] Color (U) Yellow Normal Yellow [facility] Comment on above: Order Comment: Speci men Type: URINE SPECIMENOrdering Facility: [facility] Address: [address] [place] [address] Performed By: #### L [id number] ####VILLARREAL LABORATORYCLIA [id number] [place] [address] [place] Epithelial cells LM.HPF (Urine sed) [#/Area] Few Normal [facility] Comment on above: Order Comment: Speci men Type: URINE SPECIMENOrdering Facility: [facility] Address: [address] [place] [address] Performed By: #### L [id number] ####VILLARREAL LABORATORYCLIA [id number] [place] [address] [place] Glucose Test strip (U) [Mass/Vol] Negative Normal Negative [facility] Comment on above: Order Comment: Speci men Type: URINE SPECIMENOrdering Facility: [facility] Address: [address] [place] [address] Performed By: #### L [id number] ####VILLARREAL LABORATORYCLIA [id number] [address] [place] Hemoglobin Ql (U) Negative Normal Negative [facility] Comment on above: Order Comment: Speci men Type: URINE SPECIMENOrdering Facility: [facility] Address: [address] [place] [address] Performed By: #### L [id number] ####VILLARREAL LABORATORYCLIA [id number] [address] [place] Ketones Ql (U) Negative Normal Negative [facility] Comment on above: Order Comment: Speci men Type: URINE SPECIMENOrdering Facility: [facility] Address: [address] [place], [place] [address] Performed By: #### L [id number] ####VILLARREAL LABORATORYCLIA [id number] [place] [address] [place] Leukocyte esterase Test strip Ql (U) 1+ Abnormal Negative [facility] Comment on above: Order Comment: Speci men Type: URINE SPECIMENOrdering Facility: [facility] Address: [address] [place] [address] Performed By: #### L [id number] ####VILLARREAL LABORATORYCLIA [id number] [place] [address] [place] Nitrite Ql (U) Negative Normal Negative [facility] Comment on above: Order Comment: Speci men Type: URINE SPECIMENOrdering Facility: [facility] Address: [address] [place] [address] Performed By: #### L [id number] ####VILLARREAL LABORATORYCLIA [id number] [place] [address] [place] pH (U) 6.0 [pH] Normal 5.0-8.0 [facility] Comment on above: Order Comment: Speci men Type: URINE SPECIMENOrdering Facility: [facility] Address: [address] [place] [address] Performed By: #### L [id number] ####VILLARREAL LABORATORYCLIA [id number] [place] [address] [place] Protein (U) [Mass/Vol] 1+ Abnormal Negative [facility] Comment on above: Order Comment: Speci men Type: URINE SPECIMENOrdering Facility: [facility] Address: [address] [place] [address] Performed By: #### L [id number] ####VILLARREAL LABORATORYCLIA [id number] [place] [address] [place] RBC LM.HPF (Urine sed) [#/Area] 0-3 /HPF Normal 0-3 /HPF [facility] Comment on above: Order Comment: Speci men Type: URINE SPECIMENOrdering Facility: [facility] Address: [address] [place] [address] Performed By: #### L [id number] ####VILLARREAL LABORATORYCLIA [id number] [place] [address] [place] Specific gravity (U) [Rel density] 1.010 Normal 1.005-1.030 [facility] Comment on above: Order Comment: Speci men Type: URINE SPECIMENOrdering Facility: [facility] Address: [address] [place] [address] Performed By: #### L [id number] ####VILLARREAL LABORATORYCLIA [id number] [address] [place] Urobilinogen Ql (U) 0.2 EU/dL Normal 0.2-1.0 EU/dL [facility] Comment on above: Order Comment: Speci men Type: URINE SPECIMENOrdering Facility: [facility] Address: [address] [place] [address] Performed By: #### L [id number] ####[facility] LABORATORYCLIA [id number] [place] [address] [place] WBC LM.HPF (Urine sed) [#/Area] 0-5 /HPF Normal 0-5 /HPF [facility] Comment on above: Order Comment: Speci men Type: URINE SPECIMENOrdering Facility: [facility] Address: [address] [place] [address] Performed By: #### L [id number] ####VILLARREAL LABORATORYCLIA [id number] [address] [place] Yeast.budding LM.HPF (Urine sed) [#/Area] Few Abnormal None Seen [facility] Comment on above: Order Comment: Speci men Type: URINE SPECIMENOrdering Facility: [facility] Address: [address] [place] [address] Performed By: #### L [id number] ####VILLARREAL LABORATORYCLIA [id number] [place] [address] [place] ALLIED HEALTHon 12-05-2024 ALLIED HEALTH Normal [facility] CASE MANAGEMon 12-05-2024 CASE MANAGEM Normal [facility] CASE MANAGEM [facility] CBC W Auto Differential pane l (Bld)on 12-05-2024 Basophils (Bld) [#/Vol] 10*3/uL Normal <0.11 [facility] Comment on above: Order Comment: Speci men Type: BLOOD SPECIMENOrdering Facility: [facility] Address: [address] [place] [address] Performed By: #### 5 7021-8 ####VILLARREAL LABORATORYCLIA [id number] [place] [address] [place] Basophils/100 WBC (Bld) 0.1 % Normal [facility] Comment on above: Order Comment: Speci men Type: BLOOD SPECIMENOrdering Facility: [facility] Address: [address] [place] [address] Performed By: #### 5 7021-8 ####VILLARREAL LABORATORYCLIA [id number] [place] [address] [place] Differential cell count method Nom (Bld) Auto Normal [facility] Comment on above: Order Comment: Speci men Type: BLOOD SPECIMENOrdering Facility: [facility] Address: [address] [place] [address] Performed By: #### 5 7021-8 ####VILLARREAL LABORATORYCLIA [id number] [place] [address] [place] Eosinophils (Bld) [#/Vol] 10*3/uL Normal <0.46 [facility] Comment on above: Order Comment: Speci men Type: BLOOD SPECIMENOrdering Facility: [facility] Address: [address] [place] [address] Performed By: #### 5 7021-8 ####VILLARREAL LABORATORYCLIA [id number] [address] [place] Eosinophils/100 WBC (Bld) 0.0 % Normal [facility] Comment on above: Order Comment: Speci men Type: BLOOD SPECIMENOrdering Facility: [facility] Address: [address] [place] [address] Performed By: #### 5 7021-8 ####VILLARREAL LABORATORYCLIA [id number] [place] [id number] [place] Erythrocyte distribution width (RBC) [Ratio] 15.8 % High 11.5-15.0 [facility] Comment on above: Order Comment: Speci men Type: BLOOD SPECIMENOrdering Facility: [facility] Address: [address] [place] [address] Performed By: #### 5 7021-8 ####VILLARREAL LABORATORYCLIA [id number] [address] Hematocrit (Bld) [Volume fraction] 26.3 % Low 36.0-46.0 [facility] Comment on above: Order Comment: Speci men Type: BLOOD SPECIMENOrdering Facility: [facility] Address: [address] [place] [address] Performed By: #### 5 7021-8 ####VILLARREAL LABORATORYCLIA [id number] [address] [place] Hemoglobin (Bld) [Mass/Vol] 8.5 g/dL Low 11.5-15.5 [facility] Comment on above: Order Comment: Speci men Type: BLOOD SPECIMENOrdering Facility: [facility] Address: [address] [place] [address] Performed By: #### 5 7021-8 ####VILLARREAL LABORATORYCLIA [id number] [address] Immature granulocytes (Bld) [#/Vol] 0.11 10*3/uL High <0.10 [facility] Comment on above: Order Comment: Speci men Type: BLOOD SPECIMENOrdering Facility: [facility] Address: [address] [place] [address] Performed By: #### 5 7021-8 ####VILLARREAL LABORATORYCLIA [id number] [address] Immature granulocytes/100 WBC (Bld) 0.9 % Normal [facility] Comment on above: Order Comment: Speci men Type: BLOOD SPECIMENOrdering Facility: [facility] Address: [address] [place] [address] Performed By: #### 5 7021-8 ####VILLARREAL LABORATORYCLIA [id number] [address] Lymphocytes (Bld) [#/Vol] 0.46 10*3/uL Low 1.00-4.00 [facility] Comment on above: Order Comment: Speci men Type: BLOOD SPECIMENOrdering Facility: [facility] Address: [address] [place] [address] Performed By: #### 5 7021-8 ####VILLARREAL LABORATORYCLIA [id number] [address] Lymphocytes/100 WBC (Bld) 3.8 % Normal [facility] Comment on above: Order Comment: Speci men Type: BLOOD SPECIMENOrdering Facility: [facility] Address: [address] [place] [address] Performed By: #### 5 7021-8 ####VILLARREAL LABORATORYCLIA [id number] [address] MCH (RBC) [Entitic mass] 27.9 pg Normal 26.0-34.0 [facility] Comment on above: Order Comment: Speci men Type: BLOOD SPECIMENOrdering Facility: [facility] Address: [address] [place] [address] Performed By: #### 5 7021-8 ####VILLARREAL LABORATORYCLIA [id number] [address] MCHC (RBC) [Mass/Vol] 32.3 g/dL Normal 30.5-36.0 [facility] Comment on above: Order Comment: Speci men Type: BLOOD SPECIMENOrdering Facility: [facility] Address: [address] [place] [address] Performed By: #### 5 7021-8 ####VILLARREAL LABORATORYCLIA [id number] [address] MCV (RBC) [Entitic vol] 86.2 fL Normal 80.0-100.0 [facility] Comment on above: Order Comment: Speci men Type: BLOOD SPECIMENOrdering Facility: [facility] Address: [address] [place] [address] Performed By: #### 5 7021-8 ####VILLARREAL LABORATORYCLIA [id number] [address] Monocytes (Bld) [#/Vol] 0.18 10*3/uL Normal <0.87 [facility] Comment on above: Order Comment: Speci men Type: BLOOD SPECIMENOrdering Facility: [facility] Address: [address] [place] [address] Performed By: #### 5 7021-8 ####VILLARREAL LABORATORYCLIA [id number] [place] [address] [place] Monocytes/100 WBC (Bld) 1.5 % Normal [facility] Comment on above: Order Comment: Speci men Type: BLOOD SPECIMENOrdering Facility: [facility] Address: [address] [place] [address] Performed By: #### 5 7021-8 ####VILLARREAL LABORATORYCLIA [id number] [place] [address] [place] Neutrophils (Bld) [#/Vol] 11.38 10*3/uL High 1.45-7.50 [facility] Comment on above: Order Comment: Speci men Type: BLOOD SPECIMENOrdering Facility: [facility] Address: [address] [place] [address] Performed By: #### 5 7021-8 ####VILLARREAL LABORATORYCLIA [id number] [place] [address] [place] Neutrophils/100 WBC (Bld) 93.7 % Normal [facility] Comment on above: Order Comment: Speci men Type: BLOOD SPECIMENOrdering Facility: [facility] Address: [address] [place] [address] Performed By: #### 5 7021-8 ####VILLARREAL LABORATORYCLIA [id number] [place] [address] [place] Nucleated RBC (Bld) [#/Vol] 10*3/uL Normal <0.01 [facility] Comment on above: Order Comment: Speci men Type: BLOOD SPECIMENOrdering Facility: [facility] Address: [address] [place] [address] Performed By: #### 5 7021-8 ####VILLARREAL LABORATORYCLIA [id number] [place] [address] [place] Nucleated RBC/100 WBC (Bld) [Ratio] 0.0 /100 WBC Normal [facility] Comment on above: Order Comment: Speci men Type: BLOOD SPECIMENOrdering Facility: [facility] Address: [address] [place] [address] Performed By: #### 5 7021-8 ####VILLARREAL LABORATORYCLIA [id number] [address] [place] Platelet mean volume (Bld) [Entitic vol] 8.8 fL Low 9.0-12.7 [facility] Comment on above: Order Comment: Speci men Type: BLOOD SPECIMENOrdering Facility: [facility] Address: [facility] [place] [address] Performed By: #### 5 7021-8 ####[facility] LABORATORYCLIA [id number] [address] [place] Platelets (Bld) [#/Vol] 568 10*3/uL High 150-400 [facility] Comment on above: Order Comment: Speci men Type: BLOOD SPECIMENOrdering Facility: [facility] Address: [facility] [place] [address] Performed By: #### 5 7021-8 ####[facility] LABORATORYCLIA [id number] [address] [place] RBC (Bld) [#/Vol] 3.05 10*6/uL Low 3.90-5.20 [facility] Comment on above: Order Comment: Speci men Type: BLOOD SPECIMENOrdering Facility: [facility] Address: [facility] [place] [address] Performed By: #### 5 7021-8 ####VILLARREAL LABORATORYCLIA [id number] [address] [place] WBC (Bld) [#/Vol] 12.14 10*3/uL High 3.70-11.00 [facility] Comment on above: Order Comment: Speci men Type: BLOOD SPECIMENOrdering Facility: [facility] Address: [facility] [place] [address] Performed By: #### 5 7021-8 ####VILLARREAL LABORATORYCLIA [id number] [place] [id number] [facility] CBC panel Auto (Bld)on 12-05 Erythrocyte distribution width (RBC) [Ratio] 15.8 % High 11.5-15.0 [facility] Comment on above: Order Comment: Speci men Type: BLOOD SPECIMENOrdering Facility: [facility] Address: [address] [place] [address] Performed By: #### 5 8410-2 ####VILLARREAL LABORATORYCLIA [id number] [address] [place] Hematocrit (Bld) [Volume fraction] 24.8 % Low 36.0-46.0 [facility] Comment on above: Order Comment: Speci men Type: BLOOD SPECIMENOrdering Facility: [facility] Address: [address] [place] [address] Performed By: #### 5 8410-2 ####VILLARREAL LABORATORYCLIA [id number] [address] [place] Hemoglobin (Bld) [Mass/Vol] 8.2 g/dL Low 11.5-15.5 [facility] Comment on above: Order Comment: Speci men Type: BLOOD SPECIMENOrdering Facility: [facility] Address: [address] [place] [address] Performed By: #### 5 8410-2 ####VILLARREAL LABORATORYCLIA [id number] [address] [place] MCH (RBC) [Entitic mass] 28.1 pg Normal 26.0-34.0 [facility] Comment on above: Order Comment: Speci men Type: BLOOD SPECIMENOrdering Facility: [facility] Address: [address] [place] [address] Performed By: #### 5 8410-2 ####VILLARREAL LABORATORYCLIA [id number] [address] [place] MCHC (RBC) [Mass/Vol] 33.1 g/dL Normal 30.5-36.0 [facility] Comment on above: Order Comment: Speci men Type: BLOOD SPECIMENOrdering Facility: [facility] Address: [address] [place] [address] Performed By: #### 5 8410-2 ####VILLARREAL LABORATORYCLIA [id number] [place] [address] [place] MCV (RBC) [Entitic vol] 84.9 fL Normal 80.0-100.0 [facility] Comment on above: Order Comment: Speci men Type: BLOOD SPECIMENOrdering Facility: [facility] Address: [address] [place] [address] Performed By: #### 5 8410-2 ####VILLARREAL LABORATORYCLIA [id number] [place] [address] [place] Nucleated RBC (Bld) [#/Vol] 10*3/uL Normal <0.01 [facility] Comment on above: Order Comment: Speci men Type: BLOOD SPECIMENOrdering Facility: [facility] Address: [address] [place] [address] Performed By: #### 5 8410-2 ####VILLARREAL LABORATORYCLIA [id number] [address] [place] Platelet mean volume (Bld) [Entitic vol] 8.8 fL Low 9.0-12.7 [facility] Comment on above: Order Comment: Speci men Type: BLOOD SPECIMENOrdering Facility: [facility] Address: [address] [place] [address] Performed By: #### 5 8410-2 ####VILLARREAL LABORATORYCLIA [id number] [place] [address] [place] Platelets (Bld) [#/Vol] 574 10*3/uL High 150-400 [facility] Comment on above: Order Comment: Speci men Type: BLOOD SPECIMENOrdering Facility: [facility] Address: [address] [place] [address] Performed By: #### 5 8410-2 ####VILLARREAL LABORATORYCLIA [id number] [place] [address] [place] RBC (Bld) [#/Vol] 2.92 10*6/uL Low 3.90-5.20 [facility] Comment on above: Order Comment: Speci men Type: BLOOD SPECIMENOrdering Facility: [facility] Address: [address] [place] [address] Performed By: #### 5 8410-2 ####VILLARREAL LABORATORYCLIA [id number] [place] [address] [place] WBC (Bld) [#/Vol] 13.26 10*3/uL High 3.70-11.00 [facility] Comment on above: Order Comment: Speci men Type: BLOOD SPECIMENOrdering Facility: [facility] Address: [address] [place] [address] [address] Performed By: #### 5 8410-2 ####[facility] LABORATORYCLIA [id number] [place] [address] [place] [facility] [place] CONSULT PROGon 12-05-2024 CONSULT PRO Normal [facility] CONSULT PROG Normal [facility] CONSULT PROG Normal [facility] Comprehensive metabolic 2000 panelon 12-05-2024 Albumin [Mass/Vol] 2.5 g/dL Low 3.9-4.9 [facility] Comment on above: Order Comment: Speci men Type: BLOOD SPECIMENOrdering Facility: [facility] Address: [address] [place] [address] Performed By: #### 3 040-3, 10705-3 ####[facility] LABORATORYCLIA [id number] [place] [id number] [place] ALP [Catalytic activity/Vol] 117 U/L Normal 34-123 [facility] Comment on above: Order Comment: Speci men Type: BLOOD SPECIMENOrdering Facility: [facility] Address: [address] [place] [address] [place] [address] Performed By: #### 3 040-3, 59424-5 ####[facility] LABORATORYCLIA [id number] [place] [id number] [place] ALT [Catalytic activity/Vol] U/L Low 7-38 [facility] Comment on above: Order Comment: Speci men Type: BLOOD SPECIMENOrdering Facility: [facility] Address: [address] [place] [address] [place] [address] Performed By: #### 3 040-3, 49897-4 ####VILLARREAL LABORATORYCLIA [id number] [place] [address] [place] Anion gap [Moles/Vol] 13 mmol/L Normal 8-15 [facility] Comment on above: Order Comment: Speci men Type: BLOOD SPECIMENOrdering Facility: [facility] Address: [address] [facility] [place] [address] Performed By: #### 3 040-3, ####VILLARREAL LABORATORYCLIA [id number] [place] [address] [place] AST [Catalytic activity/Vol] 18 U/L Normal 13-35 [facility] Comment on above: Order Comment: Speci men Type: BLOOD SPECIMENOrdering Facility: [facility] Address: [address] [place] [address] [place] [address] Performed By: #### 3 040-3, ####VILLARREAL LABORATORYCLIA [id number] [place] [address] [place] Bilirubin [Mass/Vol] mg/dL Low 0.2-1.3 [facility] Comment on above: Order Comment: Speci men Type: BLOOD SPECIMENOrdering Facility: [facility] Address: [address] [place] [address] Performed By: #### 3 040-3, ####VILLARREAL LABORATORYCLIA [id number] [place] [address] [place] Calcium [Mass/Vol] 9.5 mg/dL Normal 8.5-10.2 [facility] Comment on above: Order Comment: Speci men Type: BLOOD SPECIMENOrdering Facility: [facility] Address: [address] [place] [address] [place] [address] Performed By: #### 3 040-3, 40686-9 ####VILLARREAL LABORATORYCLIA [id number] [place] [address] [place] Chloride [Moles/Vol] 92 mmol/L Low 98-107 [facility] Comment on above: Order Comment: Speci men Type: BLOOD SPECIMENOrdering Facility: [facility] Address: [address] [place] [address] [place] [address] Performed By: #### 3 040-3, 89205-3 ####VILLARREAL LABORATORYCLIA [id number] [place] [address] [place] CO2 [Moles/Vol] 24 mmol/L Normal 22-30 [facility] Comment on above: Order Comment: Fan halina Type: BLOOD SPECIMENOrdering Facility: [facility] Address: [address] [place] [address] Performed By: #### 3 040-3, 94064-8 ####VILLARREAL LABORATORYCLIA [id number] [place] [address] [place] Creatinine [Mass/Vol] 1.04 mg/dL High 0.58-0.96 [facility] Comment on above: Order Comment: Kateleroy meade Type: BLOOD SPECIMENOrdering Facility: [facility] Address: [address] [place] [address] Performed By: #### 3 040-3, 04899-8 ####VILLARREAL LABORATORYCLIA [id number] [address] OF [facility] Creatinine and Glomerular filtration rate.predicted panel (S/P/Bld) 52 mL/min/1.73m??? Low >=60 [facility] Comment on above: Order Comment: Fan halina Type: BLOOD SPECIMENOrdering Facility: [facility] Address: [address] [place] [address] Result Comment: Hilda mated Glomerular Filtration Rate [...] actual GFR. Performed By: #### 3 040-3, 75107-7 ####VILLARREAL LABORATORYCLIA [id number] [place] [address] [place] Glucose [Mass/Vol] 279 mg/dL High 74-99 [facility] Comment on above: Order Comment: Fan [facility] Type: BLOOD SPECIMENOrdering Facility: [facility] Address: [address] [place] [address] Result Comment: The [place] [employer] (ADA) provides guidance for cutoff [...] Standards of Medical Care in Diabetes 2016, [place] [employer]. Diabetes Care. 2016.39(Suppl 1). Performed By: #### 3 040-3, ####VILLARREAL LABORATORYCLIA [id number] [place] [address] [place] Potassium [Moles/Vol] 4.4 mmol/L Normal 3.7-5.1 [facility] Comment on above: Order Comment: Fan meade Type: BLOOD SPECIMENOrdering Facility: [facility] Address: [address] [place] [address] Performed By: #### 3 -, ####VILLARREAL LABORATORYCLIA [id number] [place] [address] [place] Protein [Mass/Vol] 5.8 g/dL Low 6.3-8.0 [facility] Comment on above: Order Comment: Fan meade Type: BLOOD SPECIMENOrdering Facility: [facility] Address: [address] [place] [address] Performed By: #### 3 040-3, ####VILLARREAL LABORATORYCLIA [id number] [place] [address] [place] Sodium [Moles/Vol] 129 mmol/L Low 136-144 [facility] Comment on above: Order Comment: Katei halina Type: BLOOD SPECIMENOrdering Facility: [facility] Address: [address] [place] [address] Performed By: #### 3 040-3, 43011-3 ####[facility] LABORATORYCLIA [id number] [place] [address] [place] Urea nitrogen [Mass/Vol] 49 mg/dL High 7-21 [facility] Comment on above: Order Comment: Katei men Type: BLOOD SPECIMENOrdering Facility: [facility] Address: [address] [place] [address] Performed By: #### 3 040-3, 02915-4 ####VILL[facility] LABORATORYCLIA [id number] [place] [address] [place] [facility] Albumin [Mass/Vol] 2.5 g/dL Low 3.9-4.9 [facility] Comment on above: Order Comment: Speci men Type: BLOOD SPECIMENOrdering Facility: [facility] Address: [address] [place] [address] Performed By: #### 2 951-2, 63687-9, ####VILL[facility] LABORATORYCLIA [id number] [place] [address] [place] [place] ALP [Catalytic activity/Vol] 122 U/L Normal 34-123 [facility] Comment on above: Order Comment: Speci men Type: BLOOD SPECIMENOrdering Facility: [facility] Address: [address] [place] [address] Performed By: #### 2 951-2, , ####[facility] LABORATORYCLIA [id number] [place] [address] [place] ALT [Catalytic activity/Vol] U/L Low 7-38 [facility] Comment on above: Order Comment: Speci men Type: BLOOD SPECIMENOrdering Facility: [facility] Address: [address] [place] [address] Performed By: #### 2 951-2, , ####VILLARREAL LABORATORYCLIA [id number] [place] [id number] [place] Anion gap [Moles/Vol] 11 mmol/L Normal 8-15 [facility] Comment on above: Order Comment: Speci men Type: BLOOD SPECIMENOrdering Facility: [facility] Address: [address] [place] [address] Performed By: #### 2 951-2, 52476-0, ####VILLARREAL LABORATORYCLIA [id number] [place] [address] [place] AST [Catalytic activity/Vol] 21 U/L Normal 13-35 [facility] Comment on above: Order Comment: Speci men Type: BLOOD SPECIMENOrdering Facility: [facility] Address: [address] [place] [id number] Performed By: #### 2 951-2, , ####VILLARREAL LABORATORYCLIA [id number] [place] [address] [place] Bilirubin [Mass/Vol] mg/dL Low 0.2-1.3 [facility] Comment on above: Order Comment: Speci men Type: BLOOD SPECIMENOrdering Facility: [facility] Address: [address] [place] [address] Performed By: #### 2 951-2, , ####VILLARREAL LABORATORYCLIA [id number] [place] [address] [place] Calcium [Mass/Vol] 9.8 mg/dL Normal 8.5-10.2 [facility] Comment on above: Order Comment: Speci men Type: BLOOD SPECIMENOrdering Facility: [facility] Address: [address] [place] [id number] Performed By: #### 2 951-2, , ####VILLARREAL LABORATORYCLIA [id number] [place] [address] [place] Chloride [Moles/Vol] 94 mmol/L Low 98-107 [facility] Comment on above: Order Comment: Speci men Type: BLOOD SPECIMENOrdering Facility: [facility] Address: [address] [place] [address] Performed By: #### 2 951-2, , ####VILLARREAL LABORATORYCLIA [id number] [place] [id number] [place] CO2 [Moles/Vol] 26 mmol/L Normal 22-30 [facility] Comment on above: Order Comment: Speci men Type: BLOOD SPECIMENOrdering Facility: [facility] Address: [address] [place] [address] Performed By: #### 2 951-2, , ####[facility] LABORATORYCLIA [id number] [place] [address] [place] Creatinine [Mass/Vol] 0.89 mg/dL Normal 0.58-0.96 [facility] Comment on above: Order Comment: Fan meade Type: BLOOD SPECIMENOrdering Facility: [facility] Address: [address] [place] [address] Performed By: #### 2 951-2, , ####[facility] LABORATORYCLIA [id number] [place] [address] [place] Creatinine and Glomerular filtration rate.predicted panel (S/P/Bld) 62 mL/min/1.73m??? Normal >=60 [facility] Comment on above: Order Comment: Fan meade Type: BLOOD SPECIMENOrdering Facility: [facility] Address: [address] [place] [address] Result Comment: Hilda mated Glomerular Filtration Rate [...] GFR. Performed By: #### 2 951-2, , ####[facility] LABORATORYCLIA [id number] [place] [address] [place] Glucose [Mass/Vol] 238 mg/dL High 74-99 [facility] Comment on above: Order Comment: Fan meade Type: BLOOD SPECIMENOrdering Facility: [facility] Address: [address] [place] [address] Result Comment: The [place] Diabetes Association (ADA) provides guidance for cutoff [...] Standards of Medical Care in Diabetes 2016, [place] [employer]. Diabetes Care. 2016.39(Suppl 1). Performed By: #### 2 951-2, , ####[facility] LABORATORYCLIA [id number] [place] [address] [place] Potassium [Moles/Vol] 5.2 mmol/L High 3.7-5.1 [facility] Comment on above: Order Comment: Fan meade Type: BLOOD SPECIMENOrdering Facility: [facility] Address: [address] [place] [address] Performed By: #### 2 951-2, , ####VILLARREAL LABORATORYCLIA [id number] [place] [address] [place] Protein [Mass/Vol] 6.1 g/dL Low 6.3-8.0 [facility] Comment on above: Order Comment: Fan meade Type: BLOOD SPECIMENOrdering Facility: [facility] Address: [address] [place] [address] Performed By: #### 2 951-2, , ####[facility] LABORATORYCLIA [id number] [address] STATES OF [facility] Urea nitrogen [Mass/Vol] 41 mg/dL High 7-21 [facility] Comment on above: Order Comment: Katei halina Type: BLOOD SPECIMENOrdering Facility: [facility] Address: [address] [place] [address] Performed By: #### 2 951-2, , ####VILLARREAL LABORATORYCLIA [id number] [place] [address] [place] ECG COMPLETEon 12-05-2024 ECG COMPLETE Normal [facility] Lipase SerPl-cCncon 12-05-19 25 Lipase [Catalytic activity/Vol] 31 U/L Normal 16-61 [facility] Comment on above: Order Comment: Katei men Type: BLOOD SPECIMENOrdering Facility: [facility] Address: [address] [place] [address] Performed By: #### 3 040-3, 43198-9 ####VILLARREAL LABORATORYCLIA [id number] [place] [address] [place] Magnesium SerPl-mCncon 12-05 Magnesium [Mass/Vol] 2.0 mg/dL Normal 1.7-2.3 [facility] Comment on above: Order Comment: Speci men Type: BLOOD SPECIMENOrdering Facility: [facility] Address: [address] [place] [address] Performed By: #### 2 951-2, 17250-6, 30369-3 ####VILLARREAL LABORATORYCLIA [id number] [place] [address] [place] SEPSIS LACTATEon 12-05-2024 Lactate [Moles/Vol] 1.5 mmol/L Normal 0.5-2.0 [facility] Comment on above: Order Comment: Speci men Type: BLOOD SPECIMENOrdering Facility: [facility] Address: [address] [place] [address] Performed By: #### S LACT ####VILLARREAL LABORATORYCLIA [id number] [place] [address] [place] Sodium SerPl-sCncon 12-05-19 Sodium [Moles/Vol] 127 mmol/L Low 136-144 [facility] Comment on above: Order Comment: Speci men Type: BLOOD SPECIMENOrdering Facility: [facility] Address: [address] [place] [address] Performed By: #### 2 951-2 ####VILLARRE[facility] LABORATORYCLIA [id number] [place] [address] [place] [facility] Sodium [Moles/Vol] 129 mmol/L Low 136-144 [facility] Comment on above: Order Comment: Speci men Type: BLOOD SPECIMENOrdering Facility: [facility] Address: [address] [place] [address] Performed By: #### 2 951-2 ####VILLARRE[facility] LABORATORYCLIA [id number] [place] [address] [place] Sodium [Moles/Vol] 131 mmol/L Low 136-144 [facility] Comment on above: Order Comment: Speci men Type: BLOOD SPECIMENOrdering Facility: [facility] Address: [address] [place] [address] Performed By: #### 2 951-2, 15304-9, 33518-6 ####VILLARRE[facility] LABORATORYCLIA [id number] [address] [place] THERAPY NTon 12-05-2024 THERAPY NT Normal [facility] XR ABDOMEN 1V SUPINEon 12-05 XR ABDOMEN 1V SUPINE Normal [facility] CASE MANAGEMon 12-04-2024 CASE MANAGEM [facility] CBC W Auto Differential pane l (Bld)on 12-04-2024 Basophils (Bld) [#/Vol] 0.05 10*3/uL Normal <0.11 [facility] Comment on above: Order Comment: Speci men Type: BLOOD SPECIMENOrdering Facility: [facility] Address: [address] [place] [address] Performed By: #### 5 7021-8 ####VILLARRE[facility] LABORATORYCLIA [id number] [place] [address] [place] Basophils/100 WBC (Bld) 0.2 % Normal [facility] Comment on above: Order Comment: Speci men Type: BLOOD SPECIMENOrdering Facility: [facility] Address: [address] [place] [address] Performed By: #### 5 7021-8 ####VILLARREAL LABORATORYCLIA [id number] [place] [address] [place] Differential cell count method Nom (Bld) Auto Normal [facility] Comment on above: Order Comment: Speci men Type: BLOOD SPECIMENOrdering Facility: [facility] Address: [address] [place] [address] Performed By: #### 5 7021-8 ####VILLARREAL LABORATORYCLIA [id number] [place] [address] [place] Eosinophils (Bld) [#/Vol] 10*3/uL Normal <0.46 [facility] Comment on above: Order Comment: Speci men Type: BLOOD SPECIMENOrdering Facility: [facility] Address: [address] [place] [address] Performed By: #### 5 7021-8 ####VILLARREAL LABORATORYCLIA [id number] [address] [place] Eosinophils/100 WBC (Bld) 0.1 % Normal [facility] Comment on above: Order Comment: Speci men Type: BLOOD SPECIMENOrdering Facility: [facility] Address: [address] [place] [address] Performed By: #### 5 7021-8 ####VILLARREAL LABORATORYCLIA [id number] [address] [place] Erythrocyte distribution width (RBC) [Ratio] 15.8 % High 11.5-15.0 [facility] Comment on above: Order Comment: Speci men Type: BLOOD SPECIMENOrdering Facility: [facility] Address: [address] [place] [address] Performed By: #### 5 7021-8 ####VILLARRE[facility] LABORATORYCLIA [id number] [address] [place] Hematocrit (Bld) [Volume fraction] 25.9 % Low 36.0-46.0 [facility] Comment on above: Order Comment: Speci men Type: BLOOD SPECIMENOrdering Facility: [facility] Address: [address] [place] [address] Performed By: #### 5 7021-8 ####VILLARRE[facility] LABORATORYCLIA [id number] [place] [address] [place] Hemoglobin (Bld) [Mass/Vol] 8.5 g/dL Low 11.5-15.5 [facility] Comment on above: Order Comment: Speci men Type: BLOOD SPECIMENOrdering Facility: [facility] Address: [address] [place] [address] Performed By: #### 5 7021-8 ####VILLARRE[facility] LABORATORYCLIA [id number] [address] [place] Immature granulocytes (Bld) [#/Vol] 0.27 10*3/uL High <0.10 [facility] Comment on above: Order Comment: Speci men Type: BLOOD SPECIMENOrdering Facility: [facility] Address: [address] [place] [address] Performed By: #### 5 7021-8 ####VILLARRE[facility] LABORATORYCLIA [id number] [address] [place] Immature granulocytes/100 WBC (Bld) 1.3 % Normal [facility] Comment on above: Order Comment: Speci men Type: BLOOD SPECIMENOrdering Facility: [facility] Address: [address] [place] [address] Performed By: #### 5 7021-8 ####VILLARRE[facility] LABORATORYCLIA [id number] [place] [address] [place] Lymphocytes (Bld) [#/Vol] 0.64 10*3/uL Low 1.00-4.00 [facility] Comment on above: Order Comment: Speci men Type: BLOOD SPECIMENOrdering Facility: [facility] Address: [address] [place] [address] Performed By: #### 5 7021-8 ####VILLARREAL LABORATORYCLIA [id number] [address] Lymphocytes/100 WBC (Bld) 3.1 % Normal [facility] Comment on above: Order Comment: Speci men Type: BLOOD SPECIMENOrdering Facility: [facility] Address: [address] [place] [address] Performed By: #### 5 7021-8 ####VILLARRE[facility] LABORATORYCLIA [id number] [address] [place] MCH (RBC) [Entitic mass] 28.1 pg Normal 26.0-34.0 [facility] Comment on above: Order Comment: Speci men Type: BLOOD SPECIMENOrdering Facility: [facility] Address: [address] [place] [address] Performed By: #### 5 7021-8 ####VILLARRE[facility] LABORATORYCLIA [id number] [address] [place] MCHC (RBC) [Mass/Vol] 32.8 g/dL Normal 30.5-36.0 [facility] Comment on above: Order Comment: Speci men Type: BLOOD SPECIMENOrdering Facility: [facility] Address: [address] [place] [address] Performed By: #### 5 7021-8 ####VILLARRE[facility] LABORATORYCLIA [id number] [place] [address] [place] MCV (RBC) [Entitic vol] 85.8 fL Normal 80.0-100.0 [facility] Comment on above: Order Comment: Speci men Type: BLOOD SPECIMENOrdering Facility: [facility] Address: [address] [place] [address] Performed By: #### 5 7021-8 ####VILLARRE[facility] LABORATORYCLIA [id number] [place] [address] [place] Monocytes (Bld) [#/Vol] 1.09 10*3/uL High <0.87 [facility] Comment on above: Order Comment: Speci men Type: BLOOD SPECIMENOrdering Facility: [facility] Address: [address] [place] [address] Performed By: #### 5 7021-8 ####V[facility] LABORATORYCLIA [id number] [address] [place] Monocytes/100 WBC (Bld) 5.3 % Normal [facility] Comment on above: Order Comment: Speci men Type: BLOOD SPECIMENOrdering Facility: [facility] Address: [address] [place] [address] Performed By: #### 5 7021-8 ####V[facility]ARRE[facility] LABORATORYCLIA [id number] [place] [address] [place] Neutrophils (Bld) [#/Vol] 18.59 10*3/uL High 1.45-7.50 [facility] Comment on above: Order Comment: Speci men Type: BLOOD SPECIMENOrdering Facility: [facility] Address: [address] [place] [address] Performed By: #### 5 7021-8 ####V[facility] LABORATORYCLIA [id number] [place] [address] [place] Neutrophils/100 WBC (Bld) 90.0 % Normal [facility] Comment on above: Order Comment: Speci men Type: BLOOD SPECIMENOrdering Facility: [facility] Address: [address] [place] [address] Performed By: #### 5 7021-8 ####VILLARRE[facility] LABORATORYCLIA [id number] [place] [address] [place] Nucleated RBC (Bld) [#/Vol] 10*3/uL Normal <0.01 [facility] Comment on above: Order Comment: Speci men Type: BLOOD SPECIMENOrdering Facility: [facility] Address: [address] [place] [address] Performed By: #### 5 7021-8 ####VILL[facility] LABORATORYCLIA [id number] [place] [address] [place] Nucleated RBC/100 WBC (Bld) [Ratio] 0.0 /100 WBC Normal [facility] Comment on above: Order Comment: Speci men Type: BLOOD SPECIMENOrdering Facility: [facility] Address: [address] [place] [address] Performed By: #### 5 7021-8 ####V[facility] LABORATORYCLIA [id number] [place] [address] [place] Platelet mean volume (Bld) [Entitic vol] 8.7 fL Low 9.0-12.7 [facility] Comment on above: Order Comment: Speci men Type: BLOOD SPECIMENOrdering Facility: [facility] Address: [address] [place] [address] Performed By: #### 5 7021-8 ####VILLARRE[facility] LABORATORYCLIA [id number] [place] [address] [place] Platelets (Bld) [#/Vol] 518 10*3/uL High 150-400 [facility] Comment on above: Order Comment: Speci men Type: BLOOD SPECIMENOrdering Facility: [facility] Address: [address] [place] [address] Performed By: #### 5 7021-8 ####VILLARRE[facility] LABORATORYCLIA [id number] [place] [address] [place] RBC (Bld) [#/Vol] 3.02 10*6/uL Low 3.90-5.20 [facility] Comment on above: Order Comment: Speci men Type: BLOOD SPECIMENOrdering Facility: [facility] Address: [address] [place] [address] Performed By: #### 5 7021-8 ####[facility] LABORATORYCLIA [id number] [place] [address] [place] [facility] WBC (Bld) [#/Vol] 20.66 10*3/uL High 3.70-11.00 [facility] Comment on above: Order Comment: Speci men Type: BLOOD SPECIMENOrdering Facility: [facility] Address: [address] [place] [address] Performed By: #### 5 7021-8 ####[facility] LABORATORYCLIA [id number] [address] [place] [facility] CBC W Ordered Manual Differe ntial panel (Bld)on 12-04-2024 Basophils (Bld) [#/Vol] 0.03 10*3/uL Normal <0.11 [facility] Comment on above: Order Comment: Speci men Type: BLOOD SPECIMENOrdering Facility: [facility] Address: [address] [place] [address] Performed By: #### S TFREV ####[facility] LABCLIA [id number] [place] [address] [place]#### 33268-4 ####VILL[facility] LABORATORYCLIA [id number] [address] Basophils/100 WBC (Bld) 0.2 % Normal [facility] Comment on above: Order Comment: Speci men Type: BLOOD SPECIMENOrdering Facility: [facility] Address: [address] [place] [address] Performed By: #### S TFREV ####[facility] LABCLIA [id number] [place] [address] [place]#### 52866-0 ####VILL[facility] LABORATORYCLIA [id number] [place] [address] [place] Differential cell count method Nom (Bld) Auto Normal [facility] Comment on above: Order Comment: Speci men Type: BLOOD SPECIMENOrdering Facility: [facility] Address: [address] [place] [address] Performed By: #### S TFREV ####[facility] LABCLIA [id number] [place] [address] [place]#### 17641-0 ####[facility]ORATORYCLIA [id number] [place] [address] [place] Eosinophils (Bld) [#/Vol] 10*3/uL Normal <0.46 [facility] Comment on above: Order Comment: Speci men Type: BLOOD SPECIMENOrdering Facility: [facility] Address: [address] [place] [address] Performed By: #### S TFREV ####[facility] LABCLIA [id number] [place] [address] [place]#### 20447-0 ####[facility] LABORATORYCLIA [id number] [place] [address] [place] Eosinophils/100 WBC (Bld) 0.1 % Normal [facility] Comment on above: Order Comment: Speci men Type: BLOOD SPECIMENOrdering Facility: [facility] Address: [address] [place] [address] Performed By: #### S TFREV ####[facility] LABCLIA [id number] [place] [address] [place]#### 41221-9 ####[facility] LABORATORYCLIA [id number] [place] [address] [place] Erythrocyte distribution width (RBC) [Ratio] 15.9 % High 11.5-15.0 [facility] Comment on above: Order Comment: Speci men Type: BLOOD SPECIMENOrdering Facility: [facility] Address: [address] [place] [address] Performed By: #### S TFREV ####[facility] LABCLIA [id number] [place] [address] [place]#### 27054-9 ####[facility] LABORATORYCLIA [id number] [place] [address] [place] Hematocrit (Bld) [Volume fraction] 26.2 % Low 36.0-46.0 [facility] Comment on above: Order Comment: Speci men Type: BLOOD SPECIMENOrdering Facility: [facility] Address: [address] [place] [address] Performed By: #### S TFREV ####[facility] LABCLIA [id number] [place] [address] [place]#### 49619-3 ####[facility] LABORATORYCLIA [id number] [address] [place] Hemoglobin (Bld) [Mass/Vol] 8.7 g/dL Low 11.5-15.5 [facility] Comment on above: Order Comment: Speci men Type: BLOOD SPECIMENOrdering Facility: [facility] Address: [address] [place] [address] Performed By: #### S TFREV ####[facility] LABCLIA [id number] [place] [address] [place]#### 66238-0 ####[facility] LABORATORYCLIA [id number] [address] Immature granulocytes (Bld) [#/Vol] 0.20 10*3/uL High <0.10 [facility] Comment on above: Order Comment: Speci men Type: BLOOD SPECIMENOrdering Facility: [facility] Address: [address] [place] [address] Performed By: #### S TFREV ####[facility] LABCLIA [id number] [place] [address] [place]#### 34919-7 ####[facility] LABORATORYCLIA [id number] [address] [place] Immature granulocytes/100 WBC (Bld) 1.3 % Normal [facility] Comment on above: Order Comment: Speci men Type: BLOOD SPECIMENOrdering Facility: [facility] Address: [address] [place] [address] Performed By: #### S TFREV ####[facility] LABCLIA [id number] [place] [address] [place]#### 20086-1 ####[facility] LABORATORYCLIA [id number] [place] [address] [place] Lymphocytes (Bld) [#/Vol] 0.56 10*3/uL Low 1.00-4.00 [facility] Comment on above: Order Comment: Speci men Type: BLOOD SPECIMENOrdering Facility: [facility] Address: [address] [place] [address] Performed By: #### S TFREV ####[facility] LABCLIA [id number] [place] [address] [place]#### 22576-4 ####[facility] LABORATORYCLIA [id number] [address] [place] Lymphocytes/100 WBC (Bld) 3.5 % Normal [facility] Comment on above: Order Comment: Speci men Type: BLOOD SPECIMENOrdering Facility: [facility] Address: [address] [place] [address] Performed By: #### S TFREV ####[facility] LABCLIA [id number] [place] [address] [place]#### 68890-4 ####[facility] LABORATORYCLIA [id number] [place] [address] [place] MCH (RBC) [Entitic mass] 28.3 pg Normal 26.0-34.0 [facility] Comment on above: Order Comment: Speci men Type: BLOOD SPECIMENOrdering Facility: [facility] Address: [address] [place] [address] Performed By: #### S TFREV ####[facility] LABCLIA [id number] [place] [address] [place]#### 99422-7 ####[facility] LABORATORYCLIA [id number] [place] [address] [place] MCHC (RBC) [Mass/Vol] 33.2 g/dL Normal 30.5-36.0 [facility] Comment on above: Order Comment: Speci men Type: BLOOD SPECIMENOrdering Facility: [facility] Address: [address] [place] [address] Performed By: #### S TFREV ####[facility] LABCLIA [id number] [place] [address] [place]#### 88243-9 ####[facility] LABORATORYCLIA [id number] [place] [address] [place] MCV (RBC) [Entitic vol] 85.3 fL Normal 80.0-100.0 [facility] Comment on above: Order Comment: Speci men Type: BLOOD SPECIMENOrdering Facility: [facility] Address: [address] [place] [address] Performed By: #### S TFREV ####[facility] LABCLIA [id number] [place] [address] [place]#### 17168-0 ####[facility]ORY[facility] [id number] [address] [place] Monocytes (Bld) [#/Vol] 0.74 10*3/uL Normal <0.87 [facility] Comment on above: Order Comment: Speci men Type: BLOOD SPECIMENOrdering Facility: [facility] Address: [address] [place] [address] Performed By: #### S TFREV ####[facility] LABCLIA [id number] [place] [address] [place]#### 79351-1 ####[facility]ORATORYCLIA [id number] [address] Monocytes/100 WBC (Bld) 4.6 % Normal [facility] Comment on above: Order Comment: Speci men Type: BLOOD SPECIMENOrdering Facility: [facility] Address: [address] [place] [address] Performed By: #### S TFREV ####[facility] LABCLIA [id number] [place] [address] [place]#### 03909-7 ####[facility]ORATORYCLIA [id number] [address] [place] Neutrophils (Bld) [#/Vol] 14.38 10*3/uL High 1.45-7.50 [facility] Comment on above: Order Comment: Speci men Type: BLOOD SPECIMENOrdering Facility: [facility] Address: [address] [place] [address] Performed By: #### S TFREV ####[facility] LABCLIA [id number] [place] [address] [place]#### 70412-9 ####[facility]ORATORYCLIA [id number] [address] [facility] [facility] Neutrophils/100 WBC (Bld) 90.3 % Normal [facility] Comment on above: Order Comment: Speci men Type: BLOOD SPECIMENOrdering Facility: [facility] Address: [address] [place] [address] Performed By: #### S TFREV ####[facility] LABCLIA [id number] [place] [address] [place]#### 78855-4 ####[facility] LABORATORYCLIA [id number] [place] [address] [place] Nucleated RBC (Bld) [#/Vol] 10*3/uL Normal <0.01 [facility] Comment on above: Order Comment: Speci men Type: BLOOD SPECIMENOrdering Facility: [facility] Address: [address] [place] [address] Performed By: #### S TFREV ####[facility] LABCLIA [id number] [place] [address] [place]#### 61508-3 ####[facility]ORATORYCLIA [id number] [place] [address] [place] Nucleated RBC/100 WBC (Bld) [Ratio] 0.0 /100 WBC Normal [facility] Comment on above: Order Comment: Speci men Type: BLOOD SPECIMENOrdering Facility: [facility] Address: [address] [place] [address] Performed By: #### S TFREV ####[facility] LABCLIA [id number] [place] [address] [place]#### 51154-8 ####[facility]ORATORYCLIA [id number] [place] [address] [place] Platelet mean volume (Bld) [Entitic vol] 8.8 fL Low 9.0-12.7 [facility] Comment on above: Order Comment: Speci men Type: BLOOD SPECIMENOrdering Facility: [facility] Address: [address] [place] [address] Performed By: #### S TFREV ####[facility] LABCLIA [id number] [place] [address] [place]#### 22927-6 ####[facility]ORATORYCLIA [id number] [place] [address] [place] Platelets (Bld) [#/Vol] 512 10*3/uL High 150-400 [facility] Comment on above: Order Comment: Speci men Type: BLOOD SPECIMENOrdering Facility: [facility] Address: [address] [place] [address] Performed By: #### S TFREV ####[facility] LABCLIA [id number] [place] [id number] [place]#### 69383-4 ####[facility] LABORATORYCLIA [id number] [place] [address] [place] RBC (Bld) [#/Vol] 3.07 10*6/uL Low 3.90-5.20 [facility] Comment on above: Order Comment: Speci men Type: BLOOD SPECIMENOrdering Facility: [facility] Address: [address] [place] [address] Performed By: #### S TFREV ####[facility] LABCLIA [id number] [place] [address] [place]#### 46199-3 ####[facility] LABORATORYCLIA [id number] [place] [address] [place] WBC (Bld) [#/Vol] 15.92 10*3/uL High 3.70-11.00 [facility] Comment on above: Order Comment: Speci men Type: BLOOD SPECIMENOrdering Facility: [facility] Address: [address] [place] [address] Performed By: #### S TFREV ####[facility] LABCLIA [id number] [place] [address] [place]#### 49293-9 ####[facility] LABORATORYCLIA [id number] [place] [id number] [place] CONSULTon 12-04-2024 CONSULT Normal [facility] CONSULT PROGon 12-04-2024 CONSULT PROG Normal [facility] CONSULT PROG Normal [facility] CONSULT PROG Normal [facility] Comprehensive metabolic 2000 panelon 12-04-2024 Albumin [Mass/Vol] 2.5 g/dL Low 3.9-4.9 [facility] Comment on above: Order Comment: Speci men Type: BLOOD SPECIMENOrdering Facility: [facility] Address: [address] [place] [address] Performed By: #### 2 4323-8, 38065-4, 2951-2 ####[facility] LABORATORYCLIA [id number] [place] [address] [place] ALP [Catalytic activity/Vol] 112 U/L Normal 34-123 [facility] Comment on above: Order Comment: Speci men Type: BLOOD SPECIMENOrdering Facility: [facility] Address: [address] [place] [address] Performed By: #### 2 4323-8, 98568-3, 2950-2 ####[facility] LABORATORYCLIA [id number] [place] [address] [place] [facility] ALT [Catalytic activity/Vol] U/L Low 7-38 [facility] Comment on above: Order Comment: Speci men Type: BLOOD SPECIMENOrdering Facility: [facility] Address: [address] [place] [address] Performed By: #### 2 4323-8, 72352-9, 2950-2 ####[facility] LABORATORYCLIA [id number] [address] Anion gap [Moles/Vol] 10 mmol/L Normal 8-15 [facility] Comment on above: Order Comment: Speci men Type: BLOOD SPECIMENOrdering Facility: [facility] Address: [address] [place] [address] Performed By: #### 2 4323-8, , 2950-2 ####[facility] LABORATORYCLIA [id number] [address] OF [facility] AST [Catalytic activity/Vol] 31 U/L Normal 13-35 [facility] Comment on above: Order Comment: Speci men Type: BLOOD SPECIMENOrdering Facility: [facility] Address: [address] [place] [id number] Performed By: #### 2 4323-8, 07502-5, 2950-2 ####[facility] LABORATORYCLIA [id number] [address] Bilirubin [Mass/Vol] mg/dL Low 0.2-1.3 [facility] Comment on above: Order Comment: Speci men Type: BLOOD SPECIMENOrdering Facility: [facility] Address: [address] [place] [address] Performed By: #### 2 4323-8, , 2950-2 ####[facility] LABORATORYCLIA [id number] [place] [address] [place] Calcium [Mass/Vol] 9.7 mg/dL Normal 8.5-10.2 [facility] Comment on above: Order Comment: Speci men Type: BLOOD SPECIMENOrdering Facility: [facility] Address: [facility] [place] [address] Performed By: #### 2 4323-8, , 2950-12 ####[facility] LABORATORYCLIA [id number] [place] [address] [place] Chloride [Moles/Vol] 95 mmol/L Low 98-107 [facility] Comment on above: Order Comment: Speci men Type: BLOOD SPECIMENOrdering Facility: [facility] Address: [facility] [place] [address] Performed By: #### 2 4323-8, , 2950-12 ####[facility] LABORATORYCLIA [id number] [place] [address] [place] CO2 [Moles/Vol] 27 mmol/L Normal 22-30 [facility] Comment on above: Order Comment: Speci men Type: BLOOD SPECIMENOrdering Facility: [facility] Address: [facility] [place] [address] Performed By: #### 2 4323-8, , 2 ####[facility] LABORATORYCLIA [id number] [place] [address] [place] Creatinine [Mass/Vol] 0.84 mg/dL Normal 0.58-0.96 [facility] Comment on above: Order Comment: Speci men Type: BLOOD SPECIMENOrdering Facility: [facility] Address: [facility] [place] [address] Performed By: #### 2 4323-8, , 2950-2 ####[facility] LABORATORYCLIA [id number] [place] [address] [place] [facility] [place] Creatinine and Glomerular filtration rate.predicted panel (S/P/Bld) 67 mL/min/1.73m??? Normal >=60 [facility] Comment on above: Order Comment: Fan meade Type: BLOOD SPECIMENOrdering Facility: [facility] Address: [address] [place] [address] Result Comment: Hilda mated Glomerular Filtration Rate [...] actual GFR. Performed By: #### 2 4323-8, 63993-8, 295-2 ####[facility] LABORATORYCLIA [id number] [place] [address] [place] Glucose [Mass/Vol] 60 mg/dL Low 74-99 [facility] Comment on above: Order Comment: Fan meade Type: BLOOD SPECIMENOrdering Facility: [facility] Address: [address] [place] [address] Result Comment: The [place] [employer] (ADA) provides guidance for cutoff [...] Standards of Medical Care in Diabetes 2016, [place] [employer]. Diabetes Care. 2016.39(Suppl 1). Performed By: #### 2 4323-8, 53708-7, 295-2 ####[facility] LABORATORYCLIA [id number] [place] [address] [place] Potassium [Moles/Vol] 4.6 mmol/L Normal 3.7-5.1 [facility] Comment on above: Order Comment: Fan meade Type: BLOOD SPECIMENOrdering Facility: [facility] Address: [address] [place], [place] [address] [id number] Performed By: #### 2 4323-8, 13646-3, 295-2 ####[facility] LABORATORYCLIA [id number] [place] [address] [place] Protein [Mass/Vol] 5.9 g/dL Low 6.3-8.0 [facility] Comment on above: Order Comment: Speci men Type: BLOOD SPECIMENOrdering Facility: [facility] Address: [address] [place] [address] Performed By: #### 2 4323-8, 98586-1, 295-2 ####[facility] LABORATORYCLIA [id number] [place] [address] [place] Urea nitrogen [Mass/Vol] 37 mg/dL High 06-03 [facility] Comment on above: Order Comment: Speci men Type: BLOOD SPECIMENOrdering Facility: [facility] Address: [address] [place] [address] Performed By: #### 2 4323-8, , 2952 ####[facility] LABORATORYCLIA [id number] [place] [id number] [place] Creatinine Unsp time (U) [Ma ss/Vol]on 12-04-2024 Creatinine (U) [Mass/Vol] 41.7 mg/dL Normal 20.0-300.0 [facility] Comment on above: Order Comment: Speci men Type: URINE SPECIMENOrdering Facility: [facility] Address: [address] [place] [address] Performed By: #### 3 5678-2, 78991-8, 80960-4 ####[facility] LABCLIA [id number] [facility] [id number] [id number] [place] Magnesium SerPl-mCncon 12-04 Magnesium [Mass/Vol] 2.0 mg/dL Normal 1.7-2.3 [facility] Comment on above: Order Comment: Speci men Type: BLOOD SPECIMENOrdering Facility: [facility] Address: [address] [place] [address] Performed By: #### 2 4323-8, 54947-5, 2951-2 ####[facility]ORATORYCLIA [id number] [place] [address] [place] NUTRITIONon 12-04-2024 NUTRITION Normal [facility] Osmolality Uron 12-04-2024 Osmolality (U) [Osmolality] 412 mosm/kg Normal 50-1200 [facility] Comment on above: Order Comment: Speci men Type: URINE SPECIMENOrdering Facility: [facility] Address: [address] [place] [address] Performed By: #### 2 695-5 ####[facility] LABCLIA [id number] [place] [address] [place] PATHOLOGIST INTERPRETATION C BC/DIFFon 12-04-2024 Nuclear Medicine Physician review Mckay (Unsp spec) [Interp] No review performed. [facility] Comment on above: Order Comment: Speci men Type: BLOOD SPECIMENOrdering Facility: [facility] Address: [address] [place] [address] Performed By: #### S TFREV ####[facility] LABCLIA [id number] [place] [address] [place]#### 27410-9 ####[facility]ORATORYCLIA [id number] [place] [address] [place] STAFF REVIEW, CBCDIF [facility] Comment on above: Order Comment: Speci men Type: BLOOD SPECIMENOrdering Facility: [facility] Address: [address] [place] [address] Performed By: #### S TFREV ####[facility] LABCLIA [id number] [place] [address] [place]#### 30592-0 ####[facility]ORATORYCLIA [id number] [place] [address] [place] PT panel Coag (PPP)on 2024 INR Coag (PPP) [Relative time] 1.0 {INR} Normal 0.9-1.3 [facility] Comment on above: Order Comment: Speci men Type: BLOOD SPECIMENOrdering Facility: [facility] Address: [address] [place] [id number] Result Comment: Kendra min K Antagonist (VKA) Therapeutic Range: INR 2 to 3 (Target INR of 2.5)Note: For patients treated with VKA drugs, such as warfarin, the [place] [employer] 2012 Guideline recommends [...] al. Chest 2012, 141:7S-47SNishimura RA, et al. [facility] 2017, 70: 252-289 Performed By: #### 3 4528-0 ####[facility]ORATORYCLIA [id number] [place] [address] [place] PT Coag (PPP) [Time] 10.6 s Normal 9.7-13.0 [facility] Comment on above: Order Comment: Speci men Type: BLOOD SPECIMENOrdering Facility: [facility] Address: [address] [place] [address] Performed By: #### 3 4528-0 ####[facility]ORATORYCLIA [id number] [place] [address] [place] Potassium ?Tm Ur-sCncon 11-15 Potassium Unsp time (U) [Moles/Vol] 41.7 mmol/L Normal 10.0-160.0 [facility] Comment on above: Order Comment: Speci men Type: URINE SPECIMENOrdering Facility: [facility] Address: [address] [place] [address] Performed By: #### 3 5678-2, 92436-0, 42043-8 ####[facility] LABCLIA [id number] [place] [id number] [place] Sodium ?Tm Ur-sCncon 025 Sodium Unsp time (U) [Moles/Vol] <20 Normal 14-216 [facility] Comment on above: Order Comment: Speci men Type: URINE SPECIMENOrdering Facility: [facility] Address: [address] [place] [address] Performed By: #### 3 5678-2, 84177-7, 48230-3 ####[facility] LABCLIA [id number] [place] [address] [place] Sodium SerPl-sCncon 12-04-19 25 Sodium [Moles/Vol] 128 mmol/L Low 136-144 [facility] Comment on above: Order Comment: Speci men Type: BLOOD SPECIMENOrdering Facility: [facility] Address: [address] [place] [address] Performed By: #### 2 951-2 ####[facility] LABORATORYCLIA [id number] [place] [address] [place] Sodium [Moles/Vol] 133 mmol/L Low 136-144 [facility] Comment on above: Order Comment: Speci men Type: BLOOD SPECIMENOrdering Facility: [facility] Address: [address] [place] [address] Performed By: #### 2 951-2 ####[facility] LABORATORYCLIA [id number] [place] [address] [place] Sodium [Moles/Vol] 130 mmol/L Low 136-144 [facility] Comment on above: Order Comment: Speci men Type: BLOOD SPECIMENOrdering Facility: [facility] Address: [address] [place] [address] Performed By: #### 2 951-2 ####[facility] LABORATORYCLIA [id number] [place] [address] [place] Sodium [Moles/Vol] 132 mmol/L Low 136-144 [facility] Comment on above: Order Comment: Speci men Type: BLOOD SPECIMENOrdering Facility: [facility] Address: [address] [place] [address] Performed By: #### 2 4323-8, 66157-9, 2951-2 ####[facility] LABORATORYCLIA [id number] [place] [address] [place] Sodium [Moles/Vol] 132 mmol/L Low 136-144 [facility] Comment on above: Order Comment: Speci men Type: BLOOD SPECIMENOrdering Facility: [facility] Address: [address] [place] [address] Performed By: #### 2 951-2 ####[facility]ORATORYCLIA [id number] [place] [address] [place] THERAPY NTon 12-04-2024 THERAPY NT Normal [facility] ALLIED HEALTHon 12-03-2024 [facility] RUBEN BY IFA SCREENon 12-03-19 Nuclear Ab pattern (S) [Interp] Nuclear homogeneous Normal [facility] Comment on above: Order Comment: Speci men Type: BLOOD SPECIMENOrdering Facility: [facility] Address: [address] [place] [address] Performed By: #### A NAIFS ####[facility] LABCLIA [id number] [place] [address] [place] Nuclear Ab Ql (S) Positive Abnormal Negative [facility] Comment on above: Order Comment: Speci halina Type: BLOOD SPECIMENOrdering Facility: [facility] Address: [address] [place] [address] Result Comment: Anti -nuclear antibody test is used as an aid in diagnosis of systemic autoimmune diseases. Where positive and clinically warranted, follow-up using disease-specific testing is recommended. Low positive titers are not uncommon with advanced age, certain chronic infections, and malignancies among others.Test methodology: Indirect fluorescence immunoassay (IFA) using HEp-2 cells.1:160 Performed By: #### A NAIFS ####[facility] LABCLIA [id number] [place] [id number] [place] CASE MANAGEMon 01-20-2025 [facility] CBC W Auto Differential pane l (Bld)on 12-03-2024 Basophils (Bld) [#/Vol] 0.06 10*3/uL Normal <0.11 [facility] Comment on above: Order Comment: Speci men Type: BLOOD SPECIMENOrdering Facility: [facility] Address: [address] [place] [address] Performed By: #### 5 7021-8 ####[facility] LABORATORYCLIA [id number] [place] [address] [place] Basophils/100 WBC (Bld) 0.3 % Normal [facility] Comment on above: Order Comment: Speci men Type: BLOOD SPECIMENOrdering Facility: [facility] Address: [address] [place] [address] Performed By: #### 5 7021-8 ####[facility] LABORATORYCLIA [id number] [place] [address] [place] Differential cell count method Nom (Bld) Auto Normal [facility] Comment on above: Order Comment: Speci men Type: BLOOD SPECIMENOrdering Facility: [facility] Address: [address] [place] [address] Performed By: #### 5 7021-8 ####[facility] LABORATORYCLIA [id number] [place] [address] [place] Eosinophils (Bld) [#/Vol] 0.18 10*3/uL Normal <0.46 [facility] Comment on above: Order Comment: Speci men Type: BLOOD SPECIMENOrdering Facility: [facility] Address: [address] [place] [address] Performed By: #### 5 7021-8 ####[facility] LABORATORYCLIA [id number] [place] [id number] [place] Eosinophils/100 WBC (Bld) 0.9 % Normal [facility] Comment on above: Order Comment: Speci men Type: BLOOD SPECIMENOrdering Facility: [facility] Address: [address] [place] [address] Performed By: #### 5 7021-8 ####[facility] LABORATORYCLIA [id number] [place] [address] [place] Erythrocyte distribution width (RBC) [Ratio] 15.6 % High 11.5-15.0 [facility] Comment on above: Order Comment: Speci men Type: BLOOD SPECIMENOrdering Facility: [facility] Address: [address] [place] [address] Performed By: #### 5 7021-8 ####[facility] LABORATORYCLIA [id number] [place] [address] [place] Hematocrit (Bld) [Volume fraction] 26.0 % Low 36.0-46.0 [facility] Comment on above: Order Comment: Speci men Type: BLOOD SPECIMENOrdering Facility: [facility] Address: [address] [place] [address] Performed By: #### 5 7021-8 ####[facility] LABORATORYCLIA [id number] [place] [address] [place] Hemoglobin (Bld) [Mass/Vol] 8.5 g/dL Low 11.5-15.5 [facility] Comment on above: Order Comment: Speci men Type: BLOOD SPECIMENOrdering Facility: [facility] Address: [address] [place] [address] Performed By: #### 5 7021-8 ####[facility] LABORATORYCLIA [id number] [place] [address] [place] Immature granulocytes (Bld) [#/Vol] 0.29 10*3/uL High <0.10 [facility] Comment on above: Order Comment: Speci men Type: BLOOD SPECIMENOrdering Facility: [facility] Address: [address] [place] [address] Performed By: #### 5 7021-8 ####[facility] LABORATORYCLIA [id number] [address] [place] Immature granulocytes/100 WBC (Bld) 1.5 % Normal [facility] Comment on above: Order Comment: Speci men Type: BLOOD SPECIMENOrdering Facility: [facility] Address: [address] [place] [address] Performed By: #### 5 7021-8 ####[facility] LABORATORYCLIA [id number] [address] Lymphocytes (Bld) [#/Vol] 0.75 10*3/uL Low 1.00-4.00 [facility] Comment on above: Order Comment: Speci men Type: BLOOD SPECIMENOrdering Facility: [facility] Address: [address] [place] [address] Performed By: #### 5 7021-8 ####[facility] LABORATORYCLIA [id number] [address] Lymphocytes/100 WBC (Bld) 3.8 % Normal [facility] Comment on above: Order Comment: Speci men Type: BLOOD SPECIMENOrdering Facility: [facility] Address: [address] [place] [address] Performed By: #### 5 7021-8 ####[facility] LABORATORYCLIA [id number] [address] [place] [facility] MCH (RBC) [Entitic mass] 28.5 pg Normal 26.0-34.0 [facility] Comment on above: Order Comment: Speci men Type: BLOOD SPECIMENOrdering Facility: [facility] Address: [address] [place] [address] Performed By: #### 5 7021-8 ####[facility] LABORATORYCLIA [id number] [address] MCHC (RBC) [Mass/Vol] 32.7 g/dL Normal 30.5-36.0 [facility] Comment on above: Order Comment: Speci men Type: BLOOD SPECIMENOrdering Facility: [facility] Address: [address] [place] [address] Performed By: #### 5 7021-8 ####[facility] LABORATORYCLIA [id number] [address] MCV (RBC) [Entitic vol] 87.2 fL Normal 80.0-100.0 [facility] Comment on above: Order Comment: Speci men Type: BLOOD SPECIMENOrdering Facility: [facility] Address: [address] [place] [address] Performed By: #### 5 7021-8 ####[facility] LABORATORYCLIA [id number] [place] [address] [place] Monocytes (Bld) [#/Vol] 0.93 10*3/uL High <0.87 [facility] Comment on above: Order Comment: Speci men Type: BLOOD SPECIMENOrdering Facility: [facility] Address: [address] [place] [address] Performed By: #### 5 7021-8 ####[facility] LABORATORYCLIA [id number] [address] [place] Monocytes/100 WBC (Bld) 4.7 % Normal [facility] Comment on above: Order Comment: Speci men Type: BLOOD SPECIMENOrdering Facility: [facility] Address: [address] [place] [address] Performed By: #### 5 7021-8 ####[facility] LABORATORYCLIA [id number] [place] [address] [place] Neutrophils (Bld) [#/Vol] 17.78 10*3/uL High 1.45-7.50 [facility] Comment on above: Order Comment: Speci men Type: BLOOD SPECIMENOrdering Facility: [facility] Address: [address] [place] [address] Performed By: #### 5 7021-8 ####[facility] LABORATORYCLIA [id number] [address] [place] Neutrophils/100 WBC (Bld) 88.8 % Normal [facility] Comment on above: Order Comment: Speci men Type: BLOOD SPECIMENOrdering Facility: [facility] Address: [address] [place] [address] Performed By: #### 5 7021-8 ####[facility] LABORATORYCLIA [id number] [place] [address] [place] Nucleated RBC (Bld) [#/Vol] 10*3/uL Normal <0.01 [facility] Comment on above: Order Comment: Speci men Type: BLOOD SPECIMENOrdering Facility: [facility] Address: [address] [place] [address] Performed By: #### 5 7021-8 ####[facility] LABORATORYCLIA [id number] [place] [address] [place] Nucleated RBC/100 WBC (Bld) [Ratio] 0.0 /100 WBC Normal [facility] Comment on above: Order Comment: Speci men Type: BLOOD SPECIMENOrdering Facility: [facility] Address: [address] [place] [address] Performed By: #### 5 7021-8 ####VILLARRE[facility] LABORATORYCLIA [id number] [place] [address] [place] Platelet mean volume (Bld) [Entitic vol] 8.6 fL Low 9.0-12.7 [facility] Comment on above: Order Comment: Speci men Type: BLOOD SPECIMENOrdering Facility: [facility] Address: [address] [place] [address] Performed By: #### 5 7021-8 ####VILLARRE[facility] LABORATORYCLIA [id number] [place] [address] [place] Platelets (Bld) [#/Vol] 442 10*3/uL High 150-400 [facility] Comment on above: Order Comment: Speci men Type: BLOOD SPECIMENOrdering Facility: [facility] Address: [address] [place] [address] Performed By: #### 5 7021-8 ####VILLARRE[facility] LABORATORYCLIA [id number] [place] [address] [place] RBC (Bld) [#/Vol] 2.98 10*6/uL Low 3.90-5.20 [facility] Comment on above: Order Comment: Speci men Type: BLOOD SPECIMENOrdering Facility: [facility] Address: [address] [place] [address] Performed By: #### 5 7021-8 ####VILLARREAL LABORATORYCLIA [id number] [place] [address] [place] WBC (Bld) [#/Vol] 19.99 10*3/uL High 3.70-11.00 [facility] Comment on above: Order Comment: Speci men Type: BLOOD SPECIMENOrdering Facility: [facility] Address: [address] [id number] Performed By: #### 5 7021-8 ####[facility] LABORATORYCLIA [id number] [place] [address] [place] CONSULTon 12-03-2024 CONSULT Normal [facility] CONSULT Normal [facility] CONSULT PROGon 12-03-2024 CONSULT PROG Normal [facility] CONSULT PROG Normal [facility] CONSULT PROG Normal [facility] CRP SerPl-mCncon 12-03-2024 CRP [Mass/Vol] 20.0 mg/dL High <0.9 [facility] Comment on above: Order Comment: Speci men Type: BLOOD SPECIMENOrdering Facility: [facility] Address: [facility] [place] [address] Performed By: #### 1 988-5, 30940-9, ####[facility] LABORATORYCLIA [id number] [place] [address] [place] CHEST WO IVCONon 12-03-19 CT CHEST WO IVCON Invalid Interpretation Code [facility] Comprehensive metabolic 2000 panelon 12-03-2024 Albumin [Mass/Vol] 2.5 g/dL Low 3.9-4.9 [facility] Comment on above: Order Comment: Speci men Type: BLOOD SPECIMENOrdering Facility: [facility] Address: [facility] [address] [place] [phone] Performed By: #### 1 988-5, 47380-2, ####[facility] LABORATORYCLIA [id number] [place] [id number] [place] ALP [Catalytic activity/Vol] 93 U/L Normal 34-123 [facility] Comment on above: Order Comment: Speci men Type: BLOOD SPECIMENOrdering Facility: [facility] Address: [facility] [place] [address] Performed By: #### 1 988-5, 86819-5, ####[facility] LABORATORYCLIA [id number] [place] [address] [place] ALT [Catalytic activity/Vol] U/L Low 7-38 [facility] Comment on above: Order Comment: Speci men Type: BLOOD SPECIMENOrdering Facility: [facility] Address: [address] [place] [address] Performed By: #### 1 988-5, , ####[facility] LABORATORYCLIA [id number] [place] [address] [place] Anion gap [Moles/Vol] 10 mmol/L Normal 8-15 [facility] Comment on above: Order Comment: Speci men Type: BLOOD SPECIMENOrdering Facility: [facility] Address: [address] [place] [address] Performed By: #### 1 988-5, , ####[facility] LABORATORYCLIA [id number] [place] [address] [place] AST [Catalytic activity/Vol] 15 U/L Normal 13-35 [facility] Comment on above: Order Comment: Speci men Type: BLOOD SPECIMENOrdering Facility: [facility] Address: [address] [place] [address] Performed By: #### 1 988-5, , ####[facility] LABORATORYCLIA [id number] [place] [address] [place] Bilirubin [Mass/Vol] 0.2 mg/dL Normal 0.2-1.3 [facility] Comment on above: Order Comment: Speci men Type: BLOOD SPECIMENOrdering Facility: [facility] Address: [address] [place] [address] Performed By: #### 1 988-5, , ####[facility] LABORATORYCLIA [id number] [place] [address] [place] Calcium [Mass/Vol] 9.2 mg/dL Normal 8.5-10.2 [facility] Comment on above: Order Comment: Speci men Type: BLOOD SPECIMENOrdering Facility: [facility] Address: [address] [place] [address] Performed By: #### 1 988-5, 22152-0, ####[facility] LABORATORYCLIA [id number] [place] [address] [place] [facility] Chloride [Moles/Vol] 94 mmol/L Low 98-107 [facility] Comment on above: Order Comment: Fan meade Type: BLOOD SPECIMENOrdering Facility: [facility] Address: [address] [place] [address] Performed By: #### 1 988-5, 34742-4, ####[facility] LABORATORYCLIA [id number] [address] [place] CO2 [Moles/Vol] 24 mmol/L Normal 22-30 [facility] Comment on above: Order Comment: Fan meade Type: BLOOD SPECIMENOrdering Facility: [facility] Address: [address] [place] [address] Performed By: #### 1 988-5, 21245-8, ####[facility] LABORATORYCLIA [id number] [address] STATES OF [facility] Creatinine [Mass/Vol] 0.92 mg/dL Normal 0.58-0.96 [facility] Comment on above: Order Comment: Fan meade Type: BLOOD SPECIMENOrdering Facility: [facility] Address: [address] [place] [address] Performed By: #### 1 988-5, 94215-1, ####[place] LABORATORYCLIA [id number] [address] Creatinine and Glomerular filtration rate.predicted panel (S/P/Bld) 60 mL/min/1.73m??? Normal >=60 [facility] Comment on above: Order Comment: Fan meade Type: BLOOD SPECIMENOrdering Facility: [facility] Address: [address] [place] [address] Result Comment: Hilda mated Glomerular Filtration Rate [...] actual GFR. Performed By: #### 1 988-5, 70893-3, ####[facility] LABORATORYCLIA [id number] [place] [address] [place] Glucose [Mass/Vol] 246 mg/dL High 74-99 [facility] Comment on above: Order Comment: Speci men Type: BLOOD SPECIMENOrdering Facility: [facility] Address: [address] [place] [address] Result Comment: The [place] [employer] Association (ADA) provides guidance for cutoff [...] Standards of Medical Care in Diabetes 2016, [place] [employer]. Diabetes Care. 2016.39(Suppl 1). Performed By: #### 1 988-5, 03695-7, ####[facility] LABORATORYCLIA [id number] [place] [id number] [place] Potassium [Moles/Vol] 4.6 mmol/L Normal 3.7-5.1 [facility] Comment on above: Order Comment: Speci men Type: BLOOD SPECIMENOrdering Facility: [facility] Address: [address] [place] [address] Performed By: #### 1 988-5, 10698-5, ####[facility] LABORATORYCLIA [id number] [place] [address] [place] Protein [Mass/Vol] 5.7 g/dL Low 6.3-8.0 [facility] Comment on above: Order Comment: Katei men Type: BLOOD SPECIMENOrdering Facility: [facility] Address: [address] [place], [place] [address] Performed By: #### 1 988-5, 40927-9, ####[facility] LABORATORYCLIA [id number] [place] [address] [place] Sodium [Moles/Vol] 128 mmol/L Low 136-144 [facility] Comment on above: Order Comment: Speci men Type: BLOOD SPECIMENOrdering Facility: [facility] Address: [address] [place] [address] Performed By: #### 1 988-5, 19224-9, 35871-5 ####[facility] LABORATORYCLIA [id number] [place] [address] [place] Urea nitrogen [Mass/Vol] 37 mg/dL High 7-21 [facility] Comment on above: Order Comment: Speci men Type: BLOOD SPECIMENOrdering Facility: [facility] Address: [address] [place] [address] Performed By: #### 1 988-5, 17282-6, 35544-5 ####[facility] LABORATORYCLIA [id number] [place] [address] [place] Cyclic citrullinated peptide IgG Qnon 12-03-2024 CCP ANTIBODY IGG QUALITATIVE Negative Normal Negative [facility] Comment on above: Order Comment: Speci men Type: BLOOD SPECIMENOrdering Facility: [facility] Address: [address] [place] [address] Performed By: #### 3 3935-8 ####[facility] LABCLIA [id number] [place] [address] [place] ESR Westergren method (Bld) [Velocity]on 12-03-2024 ESR (Bld) [Velocity] 124 mm/h High 0-20 [facility] Comment on above: Order Comment: Speci men Type: BLOOD SPECIMENOrdering Facility: [facility] Address: [address] [place] [address] Performed By: #### 4 537-7 ####[facility] LABCLIA [id number] [place] [address] [place] Magnesium SerPl-mCncon 12-03 Magnesium [Mass/Vol] 1.8 mg/dL Normal 1.7-2.3 [facility] Comment on above: Order Comment: Speci men Type: BLOOD SPECIMENOrdering Facility: [facility] Address: [address] [place] [address] Performed By: #### 1 988-5, 04225-0, 24248-3 ####[facility] LABORATORYCLIA [id number] [place] [address] [place] Rheumatoid fact SerPl-aCncon 12-03-2024 Rheumatoid factor Qn 19 [IU]/mL High <16 [facility] Comment on above: Order Comment: Speci men Type: BLOOD SPECIMENOrdering Facility: [facility] Address: [address] [place] [address] Performed By: #### 1 1572-5 ####[facility] LABCLIA [id number] [place] [address] [place] Sodium SerPl-sCncon 12-03-19 25 Sodium [Moles/Vol] 129 mmol/L Low 136-144 [facility] Comment on above: Order Comment: Speci men Type: BLOOD SPECIMENOrdering Facility: [facility] Address: [address] [place] [address] Performed By: #### 2 951-2 ####[facility] LABORATORYCLIA [id number] [place] [address] [place] Sodium [Moles/Vol] 130 mmol/L Low 136-144 [facility] Comment on above: Order Comment: Speci men Type: BLOOD SPECIMENOrdering Facility: [facility] Address: [address] [place] [address] Performed By: #### 2 951-2 ####[facility] LABORATORYCLIA [id number] [place] [address] [place] Sodium [Moles/Vol] 128 mmol/L Low 136-144 [facility] Comment on above: Order Comment: Speci men Type: BLOOD SPECIMENOrdering Facility: [facility] Address: [address] [place] [address] Performed By: #### 2 951-2 ####[facility] LABORATORYCLIA [id number] [place] [address] [place] THERAPY NTon 12-03-2024 THERAPY NT Normal [facility] THERAPY NT Normal [facility] THERAPY NT Normal [facility] cCP IgG SerPl-aCncon 025 Cyclic citrullinated peptide IgG Qn <15 Normal <20 [facility] Comment on above: Order Comment: Speci men Type: BLOOD SPECIMENOrdering Facility: [facility] Address: [address] [place] [address] Performed By: #### 3 3935-8 ####[facility] LABCLIA [id number] [place] [address] [place] 25(OH)D3 SerPl-mCncon 2024 25-hydroxyvitamin D3 [Mass/Vol] 13.4 ng/mL Low 31.0-80.0 [facility] Comment on above: Order Comment: Speci men Type: BLOOD SPECIMENOrdering Facility: [facility] Address: [address] [place] [address] Result Comment: Clas sification of 25 [place] Vitamin D status:Deficiency/Insufficiency: < or = 30 ng/ml.Sufficiency/Optimal Levels: 31-80 ng/mLToxicity: > 100 ng/mL.Test performed by chemiluminescent immunoassay. Performed By: #### 1 989-3, 48888-8, 18127-7, [facility], 6969-0 ####[facility] LABCLIA [id number] [place] [address] [place] ALLIED HEALTHon 12-02-2024 ALLIED HEALTH Normal [facility] ALLIED HEALTH [facility] ARTERIAL BLOOD GASESon 12-02 Base excess Calc (Bld) [Moles/Vol] 4 mmol/L High 0-2 [facility] Comment on above: Order Comment: Speci men Type: ARTERIAL BLOOD SPECIMENOrdering Facility: [facility] Address: [address] [place] [address] Performed By: #### A LLBG ####[facility] RESPIRATORYCLIA [id number] [facility] RES[facility]IRAT[facility] [id number] [address] [address] Carboxyhemoglobin (BldA) [Mass fraction] 1.4 % Normal 0.0-2.0 [facility] Comment on above: Order Comment: Speci men Type: ARTERIAL BLOOD SPECIMENOrdering Facility: [facility] Address: [address] [place] [address] Result Comment: Carb oxyhemoglobin Reference Range for Smokers: 2.0-8.0% Performed By: #### A LLBG ####[facility]IRATORYGIFFORD [facility] [id number] [facility] RESPIRAT[facility] [id number] [address] [address] CO2 (Bld) [Partial pressure] 41 mm Hg Normal 36-46 [facility] Comment on above: Order Comment: Speci men Type: ARTERIAL BLOOD SPECIMENOrdering Facility: [facility] Address: [address] [place] [address] Performed By: #### A LLBG ####[facility]ATORYGIFFORD [facility] [id number] [facility]OSP[facility] RESPIRATORY [id number] [address] [address] CO2 adjusted to patient's actual temperature (Bld) [Partial pressure] Normal [facility] Comment on above: Order Comment: Speci men Type: ARTERIAL BLOOD SPECIMENOrdering Facility: [facility] Address: [address] [place] [address] Performed By: #### A LLBG ####[facility]ATORYGIFFORD [facility] [id number] [facility]OS[facility] RESPIRATORY [id number] [address] [address] HCO3 (Bld) [Moles/Vol] 28 mmol/L High 22-26 [facility] Comment on above: Order Comment: Speci men Type: ARTERIAL BLOOD SPECIMENOrdering Facility: [facility] Address: [address] [place] [address] Performed By: #### A LLBG ####[facility] [id number] [facility]OS[facility] RESPIRATORY [id number] [address] Hemoglobin (Bld) [Mass/Vol] 10.3 g/dL Low 11.5-15.5 [facility] Comment on above: Order Comment: Speci men Type: ARTERIAL BLOOD SPECIMENOrdering Facility: [facility] Address: [address] [place] [address] Performed By: #### A LLBG ####[facility] RESPIRATORYIA [id number] [facility]OSP[facility] RESPIRATORY [id number] [address] Lactate [Moles/Vol] 1.0 mmol/L Normal 0.5-2.2 [facility] Comment on above: Order Comment: Speci men Type: ARTERIAL BLOOD SPECIMENOrdering Facility: [facility] Address: [address] [place] [id number] Performed By: #### A LLBG ####[facility]ATORYGIFFORD [facility] [id number] [facility]OS[facility] RESPIRATORY [id number] [address] Methemoglobin (Bld) [Mass fraction] % Normal 0.0-1.5 [facility] Comment on above: Order Comment: Speci men Type: ARTERIAL BLOOD SPECIMENOrdering Facility: [facility] Address: [address] [place] [id number] Performed By: #### A LLBG ####[facility]ATORYGIFF[facility] [id number] [facility]OS[facility] RESPIRATORY [id number] [address] [address] O2 THERAPY RA=Room Air [facility] Comment on above: Order Comment: Speci men Type: ARTERIAL BLOOD SPECIMENOrdering Facility: [facility] Address: [address] [place] [address] Performed By: #### A LLBG ####[facility]ATORYGIFFORD [facility] [id number] [facility]OS[facility] RESPIRATORY [id number] [address] [address] Oxygen (Bld) [Partial pressure] 61 mm Hg Low 85-95 [facility] Comment on above: Order Comment: Speci men Type: ARTERIAL BLOOD SPECIMENOrdering Facility: [facility] Address: [address] [place] [address] Performed By: #### A LLBG ####[facility]ORYGI[facility] [id number] [facility]OSP[facility] RESPIRATORY [id number] [address] Oxygen adjusted to patient's actual temperature (Bld) [Partial pressure] Normal [facility] Comment on above: Order Comment: Speci men Type: ARTERIAL BLOOD SPECIMENOrdering Facility: [facility] Address: [address] [place] [address] Performed By: #### A LLBG ####[facility] RESPIRATORYIA [id number] [facility]OSP[facility] RESPIRATORY [id number] [address] Oxyhemoglobin (BldA) [Mass fraction] 90 % Low 95-98 [facility] Comment on above: Order Comment: Speci men Type: ARTERIAL BLOOD SPECIMENOrdering Facility: [facility] Address: [address] [place] [address] Performed By: #### A LLBG ####[facility] RESPIRATORY[id number] HOSP[facility] RESPIRATORY [id number] [address] [address] pH (Bld) 7.45 [pH] Normal 7.35-7.45 [facility] Comment on above: Order Comment: Speci men Type: ARTERIAL BLOOD SPECIMENOrdering Facility: [facility] Address: [address] [place] [address] Performed By: #### A LLBG ####[facility] RESPIRATORY[id number] [facility]OS[facility] RESPIRAT[facility] [id number] [address] pH adjusted to patient's actual temperature (Bld) Normal [facility] Comment on above: Order Comment: Speci men Type: ARTERIAL BLOOD SPECIMENOrdering Facility: [facility] Address: [address] [place] [address] Performed By: #### A LLBG ####[facility] RESPIRATORYIA [id number] [facility]OS[facility] RESPIRAT[facility] [id number] [address] [address] PO2 / FIO2 RATIO 290 mmHg Low >300 [facility] Comment on above: Order Comment: Speci men Type: ARTERIAL BLOOD SPECIMENOrdering Facility: [facility] Address: [address] [place] [address] Performed By: #### A LLBG ####[place] RESPIRATORY[id number] [facility]OS[facility] RESPIRATORY [id number] [address] [address] Potassium [Moles/Vol] 4.0 mmol/L Normal 3.5-5.0 [facility] Comment on above: Order Comment: Speci men Type: ARTERIAL BLOOD SPECIMENOrdering Facility: [facility] Address: [address] [place] [address] Performed By: #### A LLBG ####[facility] RESPIRATORYCLIA [id number] [facility]OS[facility] RESPIRATORY [id number] [place] [address] Ammonia Plas-sCncon 12-02-19 25 Ammonia (P) [Moles/Vol] 14 umol/L Normal 11-51 [facility] Comment on above: Order Comment: Speci men Type: BLOOD SPECIMENOrdering Facility: [facility] Address: [address] [place] [address] Performed By: #### 1 6362-6 ####[facility] LABORATORYCLIA [id number] [place] [address] [place] CBC W Auto Differential pane l (Bld)on 12-02-2024 Basophils (Bld) [#/Vol] 0.06 10*3/uL Normal <0.11 [facility] Comment on above: Order Comment: Speci men Type: BLOOD SPECIMENOrdering Facility: [facility] Address: [address] [place] [address] Performed By: #### 5 7021-8 ####[facility] LABORATORYCLIA [id number] [place] [address] [place] Basophils/100 WBC (Bld) 0.3 % Normal [facility] Comment on above: Order Comment: Speci men Type: BLOOD SPECIMENOrdering Facility: [facility] Address: [address] [place] [address] Performed By: #### 5 7021-8 ####[facility] LABORATORYCLIA [id number] [place] [address] [place] Differential cell count method Nom (Bld) Auto Normal [facility] Comment on above: Order Comment: Speci men Type: BLOOD SPECIMENOrdering Facility: [facility] Address: [address] [place] [address] Performed By: #### 5 7021-8 ####[facility] LABORATORYCLIA [id number] [address] [place] Eosinophils (Bld) [#/Vol] 0.24 10*3/uL Normal <0.46 [facility] Comment on above: Order Comment: Speci men Type: BLOOD SPECIMENOrdering Facility: [facility] Address: [address] [place] [address] Performed By: #### 5 7021-8 ####[facility] LABORATORYCLIA [id number] [address] Eosinophils/100 WBC (Bld) 1.2 % Normal [facility] Comment on above: Order Comment: Speci men Type: BLOOD SPECIMENOrdering Facility: [facility] Address: [address] [place] [address] Performed By: #### 5 7021-8 ####[facility] LABORATORYCLIA [id number] [address] [place] Erythrocyte distribution width (RBC) [Ratio] 15.6 % High 11.5-15.0 [facility] Comment on above: Order Comment: Speci men Type: BLOOD SPECIMENOrdering Facility: [facility] Address: [address] [place] [address] Performed By: #### 5 7021-8 ####[facility] LABORATORYCLIA [id number] [address] Hematocrit (Bld) [Volume fraction] 27.1 % Low 36.0-46.0 [facility] Comment on above: Order Comment: Speci men Type: BLOOD SPECIMENOrdering Facility: [facility] Address: [address] [place] [address] Performed By: #### 5 7021-8 ####[facility] LABORATORYCLIA [id number] [address] [place] Hemoglobin (Bld) [Mass/Vol] 9.0 g/dL Low 11.5-15.5 [facility] Comment on above: Order Comment: Speci men Type: BLOOD SPECIMENOrdering Facility: [facility] Address: [address] [place] [address] Performed By: #### 5 7021-8 ####[facility] LABORATORYCLIA [id number] [address] [place] Immature granulocytes (Bld) [#/Vol] 0.23 10*3/uL High <0.10 [facility] Comment on above: Order Comment: Speci men Type: BLOOD SPECIMENOrdering Facility: [facility] Address: [address] [place] [address] Performed By: #### 5 7021-8 ####[facility] LABORATORYCLIA [id number] [address] Immature granulocytes/100 WBC (Bld) 1.2 % Normal [facility] Comment on above: Order Comment: Speci men Type: BLOOD SPECIMENOrdering Facility: [facility] Address: [address] [place] [address] Performed By: #### 5 7021-8 ####[facility] LABORATORYCLIA [id number] [address] [place] Lymphocytes (Bld) [#/Vol] 0.92 10*3/uL Low 1.00-4.00 [facility] Comment on above: Order Comment: Speci men Type: BLOOD SPECIMENOrdering Facility: [facility] Address: [address] [place] [address] Performed By: #### 5 7021-8 ####[facility] LABORATORYCLIA [id number] [address] Lymphocytes/100 WBC (Bld) 4.7 % Normal [facility] Comment on above: Order Comment: Speci men Type: BLOOD SPECIMENOrdering Facility: [facility] Address: [address] [place] [address] Performed By: #### 5 7021-8 ####[facility] LABORATORYCLIA [id number] [place] [address] [place] MCH (RBC) [Entitic mass] 28.2 pg Normal 26.0-34.0 [facility] Comment on above: Order Comment: Speci men Type: BLOOD SPECIMENOrdering Facility: [facility] Address: [address] [place] [address] Performed By: #### 5 7021-8 ####[facility] LABORATORYCLIA [id number] [place] [id number] [place] MCHC (RBC) [Mass/Vol] 33.2 g/dL Normal 30.5-36.0 [facility] Comment on above: Order Comment: Speci men Type: BLOOD SPECIMENOrdering Facility: [facility] Address: [address] [place] [address] Performed By: #### 5 7021-8 ####[facility] LABORATORYCLIA [id number] [place] [address] [place] MCV (RBC) [Entitic vol] 85.0 fL Normal 80.0-100.0 [facility] Comment on above: Order Comment: Speci men Type: BLOOD SPECIMENOrdering Facility: [facility] Address: [address] [place] [address] Performed By: #### 5 7021-8 ####[facility] LABORATORYCLIA [id number] [place] [address] [place] Monocytes (Bld) [#/Vol] 1.07 10*3/uL High <0.87 [facility] Comment on above: Order Comment: Speci men Type: BLOOD SPECIMENOrdering Facility: [facility] Address: [address] [place] [address] Performed By: #### 5 7021-8 ####[facility] LABORATORYCLIA [id number] [address] Monocytes/100 WBC (Bld) 5.4 % Normal [facility] Comment on above: Order Comment: Speci men Type: BLOOD SPECIMENOrdering Facility: [facility] Address: [address] [place] [address] Performed By: #### 5 7021-8 ####VILLARREAL LABORATORYCLIA [id number] [place] [id number] [place] Neutrophils (Bld) [#/Vol] 17.12 10*3/uL High 1.45-7.50 [facility] Comment on above: Order Comment: Speci men Type: BLOOD SPECIMENOrdering Facility: [facility] Address: [address] [place] [address] Performed By: #### 5 7021-8 ####VILLARREAL LABORATORYCLIA [id number] [address] Neutrophils/100 WBC (Bld) 87.2 % Normal [facility] Comment on above: Order Comment: Speci men Type: BLOOD SPECIMENOrdering Facility: [facility] Address: [address] [place] [address] Performed By: #### 5 7021-8 ####VILLARREAL LABORATORYCLIA [id number] [place] [address] [place] Nucleated RBC (Bld) [#/Vol] 10*3/uL Normal <0.01 [facility] Comment on above: Order Comment: Speci men Type: BLOOD SPECIMENOrdering Facility: [facility] Address: [address] [place] [address] Performed By: #### 5 7021-8 ####VILLARREAL LABORATORYCLIA [id number] [address] [place] Nucleated RBC/100 WBC (Bld) [Ratio] 0.0 /100 WBC Normal [facility] Comment on above: Order Comment: Speci men Type: BLOOD SPECIMENOrdering Facility: [facility] Address: [address] [place] [address] Performed By: #### 5 7021-8 ####[facility] LABORATORYCLIA [id number] [address] [place] Platelet mean volume (Bld) [Entitic vol] 8.8 fL Low 9.0-12.7 [facility] Comment on above: Order Comment: Speci men Type: BLOOD SPECIMENOrdering Facility: [facility] Address: [address] [place] [address] Performed By: #### 5 7021-8 ####[facility]ILL[facility]RE[facility] LABORATORYCLIA [id number] [address] [place] Platelets (Bld) [#/Vol] 439 10*3/uL High 150-400 [facility] Comment on above: Order Comment: Speci men Type: BLOOD SPECIMENOrdering Facility: [facility] Address: [address] [place] [address] Performed By: #### 5 7021-8 ####VILLARREAL LABORATORYCLIA [id number] [place] [address] [place] RBC (Bld) [#/Vol] 3.19 10*6/uL Low 3.90-5.20 [facility] Comment on above: Order Comment: Speci men Type: BLOOD SPECIMENOrdering Facility: [facility] Address: [address] [place] [address] Performed By: #### 5 7021-8 ####VILLARREAL LABORATORYCLIA [id number] [place] [address] [place] WBC (Bld) [#/Vol] 19.64 10*3/uL High 3.70-11.00 [facility] Comment on above: Order Comment: Speci men Type: BLOOD SPECIMENOrdering Facility: [facility] Address: [address] [place] [address] Performed By: #### 5 7021-8 ####[facility] LABORATORYCLIA [id number] [address] [place] CK SerPl-cCncon 12-02-2024 CK [Catalytic activity/Vol] 48 U/L Normal 42-196 [facility] Comment on above: Order Comment: Speci men Type: BLOOD SPECIMENOrdering Facility: [facility] Address: [address] [place] [address] Performed By: #### 2 951-2, 2157-6, 3084-1 ####[facility] LABORATORYCLIA [id number] [address] OF [facility] CONSULT PROGon 12-02-2024 CONSULT PROG Normal [facility] CRP SerPl-mCncon 12-02-2024 CRP [Mass/Vol] 14.2 mg/dL High <0.9 [facility] Comment on above: Order Comment: Speci men Type: BLOOD SPECIMENOrdering Facility: [facility] Address: [address] [place] [address] Performed By: #### 3 084-1, 36062-2, 34576-6, 1987 ####VILLARRE[facility] LABORATORYCLIA [id number] [place] [address] [place] Comprehensive metabolic 2000 panelon 12-02-2024 Albumin [Mass/Vol] 2.3 g/dL Low 3.9-4.9 [facility] Comment on above: Order Comment: Speci men Type: BLOOD SPECIMENOrdering Facility: [facility] Address: [address] [place] [address] Performed By: #### 3 084-1, , , 1988-03 ####VILLARREAL LABORATORYCLIA [id number] [place] [address] [place] ALP [Catalytic activity/Vol] 94 U/L Normal 34-123 [facility] Comment on above: Order Comment: Speci men Type: BLOOD SPECIMENOrdering Facility: [facility] Address: [address] [place] [address] Performed By: #### 3 084-1, , , 1988-03 ####VILLARREAL LABORATORYCLIA [id number] [place] [address] [place] ALT [Catalytic activity/Vol] U/L Low 7-38 [facility] Comment on above: Order Comment: Speci men Type: BLOOD SPECIMENOrdering Facility: [facility] Address: [address] [place] [address] Performed By: #### 3 084-1, , , 1988-03 ####VILLARREAL LABORATORYCLIA [id number] [place] [address] [place] Anion gap [Moles/Vol] 11 mmol/L Normal 8-15 [facility] Comment on above: Order Comment: Speci men Type: BLOOD SPECIMENOrdering Facility: [facility] Address: [address] [place] [address] Performed By: #### 3 084-1, , , 1988-03 ####VILLARREAL LABORATORYCLIA [id number] [place] [address] [place] AST [Catalytic activity/Vol] 15 U/L Normal 13-35 [facility] Comment on above: Order Comment: Speci men Type: BLOOD SPECIMENOrdering Facility: [facility] Address: [facility] [place] [address] Performed By: #### 3 084-1, , , 1988-03 ####VILLARRE[facility] LABORATORYCLIA [id number] [place] [address] [place] Bilirubin [Mass/Vol] 0.2 mg/dL Normal 0.2-1.3 [facility] Comment on above: Order Comment: Speci men Type: BLOOD SPECIMENOrdering Facility: [facility] Address: [address] [place] [address] Performed By: #### 3 084-1, , , 1988-03 ####[facility] LABORATORYCLIA [id number] [place] [address] [place] Calcium [Mass/Vol] 9.0 mg/dL Normal 8.5-10.2 [facility] Comment on above: Order Comment: Speci men Type: BLOOD SPECIMENOrdering Facility: [facility] Address: [address] [place] [address] Performed By: #### 3 084-1, , , 1988-03 ####[facility] LABORATORYCLIA [id number] [place] [address] [place] Chloride [Moles/Vol] 93 mmol/L Low 98-107 [facility] Comment on above: Order Comment: Speci men Type: BLOOD SPECIMENOrdering Facility: [facility] Address: [address] [place] [address] Performed By: #### 3 084-1, , , 1988-03 ####[facility] LABORATORYCLIA [id number] [place] [address] [place] CO2 [Moles/Vol] 24 mmol/L Normal 22-30 [facility] Comment on above: Order Comment: Speci men Type: BLOOD SPECIMENOrdering Facility: [facility] Address: [address] [place] [address] Performed By: #### 3 08-1, , , 1988-03 ####[facility] LABORATORYCLIA [id number] [place] [address] [place] [facility] Creatinine [Mass/Vol] 0.89 mg/dL Normal 0.58-0.96 [facility] Comment on above: Order Comment: Fan meade Type: BLOOD SPECIMENOrdering Facility: [facility] Address: [address] [place] [address] Performed By: #### 3 084-1, , , 1988-03 ####[facility] LABORATORYCLIA [id number] [place] [address] [facility] Creatinine and Glomerular filtration rate.predicted panel (S/P/Bld) 62 mL/min/1.73m??? Normal >=60 [facility] Comment on above: Order Comment: [facility] Type: BLOOD SPECIMENOrdering Facility: [facility] Address: [address] [place] [address] Result Comment: Hilda mated Glomerular Filtration Rate [...] By: #### 3 084-1, , , 1988-03 ####[facility] LABORATORYCLIA [id number] [place] [address] [place] Glucose [Mass/Vol] 289 mg/dL High 74-99 [facility] Comment on above: Order Comment: Fan [facility] Type: BLOOD SPECIMENOrdering Facility: [facility] Address: [address] [place] [address] Result Comment: The [place] Diabetes Association (ADA) provides guidance for cutoff [...] Standards of Medical Care in Diabetes 2016, [place] [employer]. Diabetes Care. 2016.39(Suppl 1). Performed By: #### 3 084-1, , , 1988-03 ####VILLARREAL LABORATORYCLIA [id number] [place] [address] [place] Potassium [Moles/Vol] 4.4 mmol/L Normal 3.7-5.1 [facility] Comment on above: Order Comment: Fan [place]ade Type: BLOOD SPECIMENOrdering Facility: [facility] Address: [address] [place] [address] Performed By: #### 3 084-1, , , 1988-03 ####VILLARRE[facility] LABORATORYCLIA [id number] [place] [address] [place] Protein [Mass/Vol] 5.6 g/dL Low 6.3-8.0 [facility] Comment on above: Order Comment: Fan meade Type: BLOOD SPECIMENOrdering Facility: [facility] Address: [address] [place] [address] Performed By: #### 3 084-1, , , 1988-03 ####VILLARRE[facility] LABORATORYCLIA [id number] [place] [address] [place] Sodium [Moles/Vol] 128 mmol/L Low 136-144 [facility] Comment on above: Order Comment: Fan meade Type: BLOOD SPECIMENOrdering Facility: [facility] Address: [address] [place] [address] Performed By: #### 3 084-1, , , 1988-03 ####VILLARREAL LABORATORYCLIA [id number] [place] [address] [place] Urea nitrogen [Mass/Vol] 36 mg/dL High 7-21 [facility] Comment on above: Order Comment: Speci men Type: BLOOD SPECIMENOrdering Facility: [facility] Address: [address] [place] [address] Performed By: #### 3 084-1, 22843-1, 80978-7, 1988-03 ####[facility] LABORATORYCLIA [id number] [place] [address] [place] DNA double strand Ab IA Qn ( S)on 12-02-2024 DNA ANTIBODY 117 IU/mL Normal <=200 [facility] Comment on above: Order Comment: Speci men Type: BLOOD SPECIMENOrdering Facility: [facility] Address: [address] [place] [address] Result Comment: Nega tive: <200 IU/mLEquivocal: 201-300 IU/mLModerate Positive: 301-800 IU/mLStrong Positive: >801 IU/mL Performed By: #### 1 989-3, 19402-3, 26001-9, ANCAC, 6969-0 ####[facility] LABCLIA [id number] [address] [place] DNA ANTIBODY QUALITATIVE INTERPRETATION Negative Normal Negative [facility] Comment on above: Order Comment: Speci men Type: BLOOD SPECIMENOrdering Facility: [facility] Address: [address] [place] [address] Performed By: #### 1 989-3, 38725-8, 91295-3, ANCAC, 6969-0 ####[facility] LABCLIA [id number] [place] [address] [place] ESR Westergren method (Bld) [Velocity]on 12-02-2024 ESR (Bld) [Velocity] 120 mm/h High 0-20 [facility] Comment on above: Order Comment: Speci men Type: BLOOD SPECIMENOrdering Facility: [facility] Address: [address] [place] [address] Performed By: #### 4 537-7 ####[facility] LABCLIA [id number] [place] [address] [place] MRI BRAIN WO/W IVCONon 12-02 MRI BRAIN WO/W IVCON Normal [facility] MRI CERVICAL SPINE WO/W IVCO Non 12-02-2024 MRI CERVICAL SPINE WO/W IVCON Normal [facility] MRI LUMBAR SPINE WO/W IVCONo n 12-02-2024 MRI LUMBAR SPINE WO/W IVCON Normal [facility] MRI THORACIC SPINE WO/W IVCO Non 12-02-2024 MRI THORACIC SPINE WO/W IVCON Normal [facility] Magnesium SerPl-mCncon 12-02 Magnesium [Mass/Vol] 1.5 mg/dL Low 1.7-2.3 [facility] Comment on above: Order Comment: Speci men Type: BLOOD SPECIMENOrdering Facility: [facility] Address: [address] [place] [address] Performed By: #### 3 084-1, 84825-2, 35292-1, 1988-03 ####[facility] LABORATORYCLIA [id number] [place] [address] [place] Myeloperoxidase Ab Ser-aCnco n 12-02-2024 Myeloperoxidase Ab Qn (S) <0.2 Normal <1.0 [facility] Comment on above: Order Comment: Speci men Type: BLOOD SPECIMENOrdering Facility: [facility] Address: [address] [place] [address] Performed By: #### 1 989-3, 90264-3, 62779-6, [facility], 6969-0 ####[facility] LABCLIA [id number] [place] [id number] [place] Osmolality SerPlon Osmolality [Osmolality] 285 mosm/kg Normal 275-300 [facility] Comment on above: Order Comment: Speci men Type: BLOOD SPECIMENOrdering Facility: [facility] Address: [address] [place] [address] Performed By: #### 2 692-2 ####[facility] LABCLIA [id number] [place] [address] [place] Osmolality Uron 12-02-2024 Osmolality (U) [Osmolality] 488 mosm/kg Normal 50-1200 [facility] Comment on above: Order Comment: Speci men Type: URINE SPECIMENOrdering Facility: [facility] Address: [address] [place] [address] Performed By: #### 2 695-5 ####[facility] LABCLIA [id number] [place] [address] [place] PROTEINASE 3 ANTIBODYon 11-14 Proteinase 3 Ab Qn (S) <0.2 Normal <1.0 [facility] Comment on above: Order Comment: Speci men Type: BLOOD SPECIMENOrdering Facility: [facility] Address: [address] [place] [address] Performed By: #### 1 989-3, 51387-9, 43240-0, [facility], 6969-0 ####[facility] LABCLIA [id number] [place] [address] [place] Phosphate SerPl-mCncon 12-02 Phosphate [Mass/Vol] 3.0 mg/dL Normal 2.7-4.8 [facility] Comment on above: Order Comment: Speci men Type: BLOOD SPECIMENOrdering Facility: [facility] Address: [address] [place] [address] Performed By: #### 2 777-1 ####[facility] LABORATORYCLIA [id number] [place] [address] [place] Smooth muscle Ab Ql (S)on ACTIN SMOOTH MUSCLE IGG QUALITATIVE Negative Normal Negative [facility] Comment on above: Order Comment: Speci men Type: BLOOD SPECIMENOrdering Facility: [facility] Address: [address] [place] [address] Performed By: #### 1 989-3, 99009-9, 78104-8, ANCA, 6969-0 ####[facility] LABCLIA [id number] [place] [address] [place] ACTIN SMOOTH MUSCLE IGG QUANTITATIVE 3 Units Normal <20 [facility] Comment on above: Order Comment: Speci men Type: BLOOD SPECIMENOrdering Facility: [facility] Address: [address] [place] [address] Performed By: #### 1 989-3, 34338-9, 39194-9, [facility], 6969-0 ####[facility] LABCLIA [id number] [address] [place] [address] [place] Sodium SerPl-sCncon 12-02-19 25 Sodium [Moles/Vol] 127 mmol/L Low 136-144 [facility] Comment on above: Order Comment: Speci men Type: BLOOD SPECIMENOrdering Facility: [facility] Address: [address] [place] [address] Performed By: #### 2 951-2 ####[facility] LABORATORYCLIA [id number] [place] [address] [place] Sodium [Moles/Vol] 130 mmol/L Low 136-144 [facility] Comment on above: Order Comment: Speci men Type: BLOOD SPECIMENOrdering Facility: [facility] Address: [address] [place] [address] Performed By: #### 2 951-2, 2156-6, 3084-1 ####V[facility] LABORATORYCLIA [id number] [place] [address] [place] US ABD RIGHT UPPER QUADRANTo n 12-02-2024 US ABD RIGHT UPPER QUADRANT Normal [facility] US ABD SPLEEN -NBon 12-02-19 25 US ABD SPLEEN -NB Normal [facility] US EXT MASS/FLUID COLLECTION LTon 12-02-2024 US EXT MASS/FLUID COLLECTION LT Normal [facility] Urate SerPl-mCncon 5 Urate [Mass/Vol] 4.9 mg/dL Normal 2.5-6.6 [facility] Comment on above: Order Comment: Speci men Type: BLOOD SPECIMENOrdering Facility: [facility] Address: [address] [place] [address] Performed By: #### 2 951-2, 7-6, 3084-1 ####V[facility] LABORATORYCLIA [id number] [place] [address] [place] Urate [Mass/Vol] 5.1 mg/dL Normal 2.5-6.6 [facility] Comment on above: Order Comment: Speci men Type: BLOOD SPECIMENOrdering Facility: [facility] Address: [address] [place] [address] Performed By: #### 3 084-1, 08872-7, 35273-3, 1987- ####V[facility]RE[facility] LABORATORYCLIA [id number] [place] [address] [place] ALLIED HEALTHon 12-01-2024 ALLIED HEALTH Normal [facility] Bacteria Ur Culton Bacteria identified Cx Nom (U) CULTURE, URINE: Mixed microbiota: ORGANISM ID: 1 <10,000 CFU/ml Lactose negative gram negative bacilli Insignificant colony count. No further workup. Normal [facility] Comment on above: Performed By: #### 6 30-4 ####[facility] LABCLIA [id number] [address] [id number] [address] [place] Basic metabolic 2000 panelon 12-01-2024 Anion gap [Moles/Vol] 12 mmol/L Normal 8-15 [facility] Comment on above: Order Comment: Speci men Type: BLOOD SPECIMENOrdering Facility: [facility] Address: [address] [place] [address] Performed By: #### 2 4321-2 ####V[facility] LABORATORYCLIA [id number] [place] [id number] [place] Calcium [Mass/Vol] 8.7 mg/dL Normal 8.5-10.2 [facility] Comment on above: Order Comment: Speci men Type: BLOOD SPECIMENOrdering Facility: [facility] Address: [address] [place] [address] Performed By: #### 2 4321-2 ####V[facility] LABORATORYCLIA [id number] [place] [id number] [place] Chloride [Moles/Vol] 91 mmol/L Low 98-107 [facility] Comment on above: Order Comment: Speci men Type: BLOOD SPECIMENOrdering Facility: [facility] Address: [address] [place] [address] Performed By: #### 2 4321-2 ####V[facility] LABORATORYCLIA [id number] [place] [id number] [place] [facility] CO2 [Moles/Vol] 25 mmol/L Normal 22-30 [facility] Comment on above: Order Comment: Fan meade Type: BLOOD SPECIMENOrdering Facility: [facility] Address: [address] [place] [address] Performed By: #### 2 4321-2 ####[facility] LABORATORYCLIA [id number] [address] Creatinine [Mass/Vol] 1.03 mg/dL High 0.58-0.96 [facility] Comment on above: Order Comment: Fan [place] Type: BLOOD SPECIMENOrdering Facility: [facility] Address: [address] [place] [address] Performed By: #### 2 4321-2 ####[facility] LABORATORYCLIA [id number] [address] Creatinine and Glomerular filtration rate.predicted panel (S/P/Bld) 52 mL/min/1.73m??? Low >=60 [facility] Comment on above: Order Comment: Fan [place] Type: BLOOD SPECIMENOrdering Facility: [facility] Address: [address] [place] [address] Result Comment: Hilda mated Glomerular Filtration Rate [...] Performed By: #### 2 4321-2 ####VILL[facility] LABORATORYCLIA [id number] [place] [id number] [place] [facility] Glucose [Mass/Vol] 200 mg/dL High 74-99 [facility] Comment on above: Order Comment: Fan [place] Type: BLOOD SPECIMENOrdering Facility: [facility] Address: [address] [place] [address] Result Comment: The [place] Diabetes Association (ADA) provides guidance for cutoff [...] Standards of Medical Care in Diabetes 2016, [place] [employer]. Diabetes Care. 2016.39(Suppl 1). Performed By: #### 2 4321-2 ####V[facility] LABORATORYCLIA [id number] [place] [address] [place] Potassium [Moles/Vol] 4.7 mmol/L Normal 3.7-5.1 [facility] Comment on above: Order Comment: Fan [place] Type: BLOOD SPECIMENOrdering Facility: [facility] Address: [address] [place] [address] Performed By: #### 2 4321-2 ####[facility] LABORATORYCLIA [id number] [place] [address] [place] Sodium [Moles/Vol] 128 mmol/L Low 136-144 [facility] Comment on above: Order Comment: Fan [place] Type: BLOOD SPECIMENOrdering Facility: [facility] Address: [address] [place] [address] Performed By: #### 2 4321-2 ####[facility] LABORATORYCLIA [id number] [place] [address] [place] Urea nitrogen [Mass/Vol] 36 mg/dL High 7-21 [facility] Comment on above: Order Comment: Fan meaed Type: BLOOD SPECIMENOrdering Facility: [facility] Address: [address] [place] [address] Performed By: #### 2 4321-2 ####[facility] LABORATORYCLIA [id number] [place] [address] [place] Anion gap [Moles/Vol] 12 mmol/L Normal 8-15 [facility] Comment on above: Order Comment: Speci men Type: BLOOD SPECIMENOrdering Facility: [facility] Address: [address] [place] [address] Performed By: #### 1 9123-9, 72123-1, 37896-0, 22248-6, 35134-0 ####[facility] LABORATORYCLIA [id number] [place] [address] [place] Calcium [Mass/Vol] 9.4 mg/dL Normal 8.5-10.2 [facility] Comment on above: Order Comment: Speci men Type: BLOOD SPECIMENOrdering Facility: [facility] Address: [address] [place] [address] Performed By: #### 1 9123-9, 80687-4, 62046-5, 83222-6, 31687-4 ####[facility]ORATORYCLIA [id number] [place] [address] [place] Chloride [Moles/Vol] 92 mmol/L Low 98-107 [facility] Comment on above: Order Comment: Speci men Type: BLOOD SPECIMENOrdering Facility: [facility] Address: [address] [place] [address] Performed By: #### 1 9123-9, 08773-2, 71666-0, 47579-5, 55671-9 ####[facility]ORATORYCLIA [id number] [place] [address] [place] CO2 [Moles/Vol] 25 mmol/L Normal 22-30 [facility] Comment on above: Order Comment: Speci men Type: BLOOD SPECIMENOrdering Facility: [facility] Address: [address] [place] [address] Performed By: #### 1 9123-9, 91327-5, 62948-3, 79272-5, 23458-1 ####[facility]ORATORYCLIA [id number] [place] [address] [place] Creatinine [Mass/Vol] 0.95 mg/dL Normal 0.58-0.96 [facility] Comment on above: Order Comment: Speci men Type: BLOOD SPECIMENOrdering Facility: [facility] Address: [address] [place] [address] Performed By: #### 1 9123-9, 79748-8, 90522-4, 02523-0, 43524-7 ####[facility] LABORATORYCLIA [id number] [place] [address] [place] Creatinine and Glomerular filtration rate.predicted panel (S/P/Bld) 58 mL/min/1.73m??? Low >=60 [facility] Comment on above: Order Comment: Fan [place] Type: BLOOD SPECIMENOrdering Facility: [facility] Address: [address] [place] [address] Result Comment: Hilda mated Glomerular Filtration Rate [...] actual GFR. Performed By: #### 1 9123-9, 15129-4, 55123-6, 34743-2, 50544-5 ####[facility] LABORATORYCLIA [id number] [place] [id number] [place] Glucose [Mass/Vol] 230 mg/dL High 74-99 [facility] Comment on above: Order Comment: Fan [place] Type: BLOOD SPECIMENOrdering Facility: [facility] Address: [address] [place] [address] Result Comment: The [place] Diabetes Association (ADA) provides guidance for cutoff [...] Standards of Medical Care in Diabetes 2016, [place] [employer]. Diabetes Care. 2016.39(Suppl 1). Performed By: #### 1 9123-9, 49322-2, 25545-4, 89697-9, 33789-7 ####[facility] LABORATORYCLIA [id number] [place] [address] [place] Potassium [Moles/Vol] 4.7 mmol/L Normal 3.7-5.1 [facility] Comment on above: Order Comment: Speci men Type: BLOOD SPECIMENOrdering Facility: [facility] Address: [address] [place] [address] Performed By: #### 1 9123-9, 81601-6, 86434-2, 40452-0, 10659-8 ####[facility]ORATORYCLIA [id number] [place] [address] [place] Sodium [Moles/Vol] 129 mmol/L Low 136-144 [facility] Comment on above: Order Comment: Speci men Type: BLOOD SPECIMENOrdering Facility: [facility] Address: [address] [place] [address] Performed By: #### 1 9123-9, 72428-0, 95602-5, 44374-9, 42072-9 ####[facility]ORYCLIA [id number] [place] [address] [place] Urea nitrogen [Mass/Vol] 36 mg/dL High 7-21 [facility] Comment on above: Order Comment: Speci men Type: BLOOD SPECIMENOrdering Facility: [facility] Address: [address] [place] [address] Performed By: #### 1 9123-9, 09492-5, 53335-6, 55343-1, 87882-5 ####[facility]ORYCLIA [id number] [place] [address] [place] CBC W Auto Differential pane l (Bld)on 12-01-2024 Basophils (Bld) [#/Vol] 0.06 10*3/uL Normal <0.11 [facility] Comment on above: Order Comment: Speci men Type: BLOOD SPECIMENOrdering Facility: [facility] Address: [address] [place] [address] Performed By: #### 5 7021-8 ####[facility]ORYCLIA [id number] [place] [address] [place] Basophils/100 WBC (Bld) 0.3 % Normal [facility] Comment on above: Order Comment: Speci men Type: BLOOD SPECIMENOrdering Facility: [facility] Address: [address] [place] [address] Performed By: #### 5 7021-8 ####[facility]ORATORYCLIA [id number] [place] [address]RE[address] Differential cell count method Nom (Bld) Auto Normal [facility] Comment on above: Order Comment: Speci men Type: BLOOD SPECIMENOrdering Facility: [facility] Address: [address] [place] [address] Performed By: #### 5 7021-8 ####[facility] LABORATORYCLIA [id number] [place] [address] [place] Eosinophils (Bld) [#/Vol] 0.20 10*3/uL Normal <0.46 [facility] Comment on above: Order Comment: Speci men Type: BLOOD SPECIMENOrdering Facility: [facility] Address: [address] [place] [address] Performed By: #### 5 7021-8 ####[facility]AR[facility] LABORATORYCLIA [id number] [address] Eosinophils/100 WBC (Bld) 0.9 % Normal [facility] Comment on above: Order Comment: Speci men Type: BLOOD SPECIMENOrdering Facility: [facility] Address: [address] [place] [address] Performed By: #### 5 7021-8 ####[facility] LABORATORYCLIA [id number] [address] [place] Erythrocyte distribution width (RBC) [Ratio] 15.9 % High 11.5-15.0 [facility] Comment on above: Order Comment: Speci men Type: BLOOD SPECIMENOrdering Facility: [facility] Address: [address] [place] [address] Performed By: #### 5 7021-8 ####[facility]AR[facility] LABORATORYCLIA [id number] [address] [place] Hematocrit (Bld) [Volume fraction] 26.6 % Low 36.0-46.0 [facility] Comment on above: Order Comment: Speci men Type: BLOOD SPECIMENOrdering Facility: [facility] Address: [address] [place] [address] Performed By: #### 5 7021-8 ####VILLARRE[facility] LABORATORYCLIA [id number] [place] [address] [place] Hemoglobin (Bld) [Mass/Vol] 8.8 g/dL Low 11.5-15.5 [facility] Comment on above: Order Comment: Speci men Type: BLOOD SPECIMENOrdering Facility: [facility] Address: [address] [place] [address] Performed By: #### 5 7021-8 ####VILLARRE[facility] LABORATORYCLIA [id number] [place] [address] [place] Immature granulocytes (Bld) [#/Vol] 0.32 10*3/uL High <0.10 [facility] Comment on above: Order Comment: Speci men Type: BLOOD SPECIMENOrdering Facility: [facility] Address: [address] [place] [address] Performed By: #### 5 7021-8 ####VILLAR[facility] LABORATORYCLIA [id number] [address] [place] Immature granulocytes/100 WBC (Bld) 1.4 % Normal [facility] Comment on above: Order Comment: Speci men Type: BLOOD SPECIMENOrdering Facility: [facility] Address: [address] [place] [address] Performed By: #### 5 7021-8 ####VILLARRE[facility] LABORATORYCLIA [id number] [place] [address] [place] Lymphocytes (Bld) [#/Vol] 1.00 10*3/uL Normal 1.00-4.00 [facility] Comment on above: Order Comment: Speci men Type: BLOOD SPECIMENOrdering Facility: [facility] Address: [address] [place] [address] Performed By: #### 5 7021-8 ####VILLAR[facility] LABORATORYCLIA [id number] [address] [place] Lymphocytes/100 WBC (Bld) 4.5 % Normal [facility] Comment on above: Order Comment: Speci men Type: BLOOD SPECIMENOrdering Facility: [facility] Address: [address] [place] [address] Performed By: #### 5 7021-8 ####VILLARREAL LABORATORYCLIA [id number] [address] MCH (RBC) [Entitic mass] 28.3 pg Normal 26.0-34.0 [facility] Comment on above: Order Comment: Speci men Type: BLOOD SPECIMENOrdering Facility: [facility] Address: [address] [place] [address] Performed By: #### 5 7021-8 ####VILLAR[facility] LABORATORYCLIA [id number] [address] [place] MCHC (RBC) [Mass/Vol] 33.1 g/dL Normal 30.5-36.0 [facility] Comment on above: Order Comment: Speci men Type: BLOOD SPECIMENOrdering Facility: [facility] Address: [address] [place] [address] Performed By: #### 5 7021-8 ####VILLARRE[facility] LABORATORYCLIA [id number] [address] MCV (RBC) [Entitic vol] 85.5 fL Normal 80.0-100.0 [facility] Comment on above: Order Comment: Speci men Type: BLOOD SPECIMENOrdering Facility: [facility] Address: [address] [place] [address] Performed By: #### 5 7021-8 ####VILLARRE[facility] LABORATORYCLIA [id number] [address] Monocytes (Bld) [#/Vol] 1.18 10*3/uL High <0.87 [facility] Comment on above: Order Comment: Speci men Type: BLOOD SPECIMENOrdering Facility: [facility] Address: [address] [place] [address] Performed By: #### 5 7021-8 ####VILLARRE[facility] LABORATORYCLIA [id number] [place] [address] [place] Monocytes/100 WBC (Bld) 5.3 % Normal [facility] Comment on above: Order Comment: Speci men Type: BLOOD SPECIMENOrdering Facility: [facility] Address: [address] [place] [address] Performed By: #### 5 7021-8 ####VILLARRE[facility] LABORATORYCLIA [id number] [place] [address] [place] Neutrophils (Bld) [#/Vol] 19.49 10*3/uL High 1.45-7.50 [facility] Comment on above: Order Comment: Speci men Type: BLOOD SPECIMENOrdering Facility: [facility] Address: [address] [place] [address] Performed By: #### 5 7021-8 ####VILLARRE[facility] LABORATORYCLIA [id number] [place] [address] [place] Neutrophils/100 WBC (Bld) 87.6 % Normal [facility] Comment on above: Order Comment: Speci men Type: BLOOD SPECIMENOrdering Facility: [facility] Address: [address] [place] [address] Performed By: #### 5 7021-8 ####VILLARRE[facility] LABORATORYCLIA [id number] [place] [address] [place] Nucleated RBC (Bld) [#/Vol] 10*3/uL Normal <0.01 [facility] Comment on above: Order Comment: Speci men Type: BLOOD SPECIMENOrdering Facility: [facility] Address: [address] [place] [address] Performed By: #### 5 7021-8 ####VILLARRE[facility] LABORATORYCLIA [id number] [place] [address] [place] Nucleated RBC/100 WBC (Bld) [Ratio] 0.0 /100 WBC Normal [facility] Comment on above: Order Comment: Speci men Type: BLOOD SPECIMENOrdering Facility: [facility] Address: [address] [place] [address] Performed By: #### 5 7021-8 ####[facility] LABORATORYCLIA [id number] [place] [address] [place] Platelet mean volume (Bld) [Entitic vol] 8.7 fL Low 9.0-12.7 [facility] Comment on above: Order Comment: Speci men Type: BLOOD SPECIMENOrdering Facility: [facility] Address: [address] [place] [address] Performed By: #### 5 7021-8 ####[facility] LABORATORYCLIA [id number] [place] [address] [place] Platelets (Bld) [#/Vol] 435 10*3/uL High 150-400 [facility] Comment on above: Order Comment: Speci men Type: BLOOD SPECIMENOrdering Facility: [facility] Address: [address] [place] [address] Performed By: #### 5 7021-8 ####[facility] LABORATORYCLIA [id number] [place] [address] [place] RBC (Bld) [#/Vol] 3.11 10*6/uL Low 3.90-5.20 [facility] Comment on above: Order Comment: Speci men Type: BLOOD SPECIMENOrdering Facility: [facility] Address: [address] [place] [address] Performed By: #### 5 7021-8 ####[facility] LABORATORYCLIA [id number] [place] [address] [place] WBC (Bld) [#/Vol] 22.25 10*3/uL High 3.70-11.00 [facility] Comment on above: Order Comment: Speci men Type: BLOOD SPECIMENOrdering Facility: [facility] Address: [address] [place] [address] Performed By: #### 5 7021-8 ####[facility] LABORATORYCLIA [id number] [address] [place] CONSULT PROGon 12-01-2024 CONSULT PROG Normal [facility] CONSULT PROG Normal [facility] CT ABD/PEL W IVCONon 025 CT ABD/PEL W IVCON Normal [facility] ECG COMPLETEon 12-01-2024 ECG COMPLETE Normal [facility] Hepatic function 2000 panelo n 12-01-2024 Albumin [Mass/Vol] 2.7 g/dL Low 3.9-4.9 [facility] Comment on above: Order Comment: Speci men Type: BLOOD SPECIMENOrdering Facility: [facility] Address: [address] [place] [address] Performed By: #### 1 9123-9, 29143-8, 75934-8, 86665-8, 45863-2 ####[facility] LABORATORYCLIA [id number] [place] [address] [place] ALP [Catalytic activity/Vol] 79 U/L Normal 34-123 [facility] Comment on above: Order Comment: Speci men Type: BLOOD SPECIMENOrdering Facility: [facility] Address: [address] [place] [address] Performed By: #### 1 9123-9, 57668-2, 48387-0, 10764-2, 50128-3 ####[facility] LABORATORYCLIA [id number] [address] [place] ALT [Catalytic activity/Vol] U/L Low 7-38 [facility] Comment on above: Order Comment: Speci men Type: BLOOD SPECIMENOrdering Facility: [facility] Address: [address] [place] [address] Performed By: #### 1 9123-9, 92219-3, 00791-8, 21276-6, 10710-4 ####[facility] LABORATORYCLIA [id number] [place] [id number] [facility] AST [Catalytic activity/Vol] 20 U/L Normal 13-35 [facility] Comment on above: Order Comment: Speci men Type: BLOOD SPECIMENOrdering Facility: [facility] Address: [address] [place] [address] Performed By: #### 1 9123-9, 79373-2, 43253-4, 38374-9, 60116-6 ####[facility] LABORATORYCLIA [id number] [address] Bilirubin [Mass/Vol] 0.2 mg/dL Normal 0.2-1.3 [facility] Comment on above: Order Comment: Speci men Type: BLOOD SPECIMENOrdering Facility: [facility] Address: [address] [place] [address] Performed By: #### 1 9123-9, 12864-7, 79361-4, 02197-9, 47594-8 ####[facility] LABORATORYCLIA [id number] [address] Bilirubin.conjugated [Mass/Vol] mg/dL Normal <0.3 [facility] Comment on above: Order Comment: Speci men Type: BLOOD SPECIMENOrdering Facility: [facility] Address: [address] [place] [address] Performed By: #### 1 9123-9, 98099-2, 05237-5, 72092-1, 04724-9 ####[facility] LABORATORYCLIA [id number] [address] Protein [Mass/Vol] 5.9 g/dL Low 6.3-8.0 [facility] Comment on above: Order Comment: Speci men Type: BLOOD SPECIMENOrdering Facility: [facility] Address: [address] [place] [address] Performed By: #### 1 9123-9, 22603-1, 01633-7, 29203-4, 62175-3 ####[facility] LABORATORYCLIA [id number] [address] OF [facility] MRI ANKLE WO IVCON LTon 11-14 MRI ANKLE WO IVCON LT Normal [facility] MRI FOOT/TOES WO IVCON LTon 12-01-2024 MRI FOOT/TOES WO IVCON LT Normal [facility] Magnesium SerPl-mCncon 12-01 Magnesium [Mass/Vol] 2.3 mg/dL Normal 1.7-2.3 [facility] Comment on above: Order Comment: Speci men Type: BLOOD SPECIMENOrdering Facility: [facility] Address: [address] [place] [address] Performed By: #### 1 9123-9, 22503-8, 33597-4, 08314-9, 42758-2 ####[facility] LABORATORYCLIA [id number] [address] NT-proBNP SerPl-mCncon 12-01 Natriuretic peptide.B prohormone N-Terminal [Mass/Vol] 1162 pg/mL High <450 [facility] Comment on above: Order Comment: Speci men Type: BLOOD SPECIMENOrdering Facility: [facility] Address: [address] [place] [address] Performed By: #### 1 9123-9, 06016-5, 47811-4, 75053-6, 52106-0 ####[facility] LABORATORYCLIA [id number] [address] Procalcitonin SerPl-ncon 0 12-01-2024 Procalcitonin [Mass/Vol] 0.24 ng/mL High <0.09 [facility] Comment on above: Order Comment: Speci [facility] Type: BLOOD SPECIMENOrdering Facility: [facility] Address: [address] [place] [address] Result Comment: For a guided interpretation of test results, please visit the Change in Procalcitonin Calculator, [email or web address]. Performed By: #### 1 9123-9, 88291-6, 35891-7, 47700-0, 49606-7 ####V[facility] LABORATORYCLIA [id number] [address] SEPSIS LACTATEon 12-01-2024 Lactate [Moles/Vol] 1.5 mmol/L Normal 0.5-2.0 [facility] Comment on above: Order Comment: Speci [facility] Type: BLOOD SPECIMENOrdering Facility: [facility] Address: [address] [place] [address] Performed By: #### S LACT ####VILLAR[facility] LABORATORYCLIA [id number] [address] Sodium ?Tm Ur-sCncon 025 Sodium Unsp time (U) [Moles/Vol] 39 mmol/L Normal 14-216 [facility] Comment on above: Order Comment: Speci men Type: URINE SPECIMENOrdering Facility: [facility] Address: [address] [place] [address] Performed By: #### 3 5678-2 ####[facility] LABCLIA [id number] [address] [id number] [address] [place] URINALYSIS, REFLEX MICROSCOP ICon 12-01-2024 Bacteria LM.HPF (Urine sed) [#/Area] Few Abnormal None Seen [facility] Comment on above: Order Comment: Speci men Type: URINE SPECIMENOrdering Facility: [facility] Address: [address] [place] [address] Performed By: #### L [id number] ####VILLARRE[facility] LABORATORYCLIA [id number] [address] [place] Bilirubin Ql (U) Negative Normal Negative [facility] Comment on above: Order Comment: Speci men Type: URINE SPECIMENOrdering Facility: [facility] Address: [address] [place] [address] Performed By: #### L [id number] ####VILLAR[facility] LABORATORYCLIA [id number] [address] [place] Clarity (Unsp spec) Clear Normal Clear [facility] Comment on above: Order Comment: Speci men Type: URINE SPECIMENOrdering Facility: [facility] Address: [address] [place] [address] Performed By: #### L [id number] ####[facility] LABORATORYCLIA [id number] [address] [place] Color (U) Yellow Normal Yellow [facility] Comment on above: Order Comment: Speci men Type: URINE SPECIMENOrdering Facility: [facility] Address: [address] [place] [address] Performed By: #### L [id number] ####[facility] LABORATORYCLIA [id number] [address] [place] Epithelial cells LM.HPF (Urine sed) [#/Area] Few Normal [facility] Comment on above: Order Comment: Speci men Type: URINE SPECIMENOrdering Facility: [facility] Address: [address] [place] [address] Performed By: #### L [id number] ####[facility] LABORATORYCLIA [id number] [address] Glucose Test strip (U) [Mass/Vol] Trace Abnormal Negative [facility] Comment on above: Order Comment: Speci men Type: URINE SPECIMENOrdering Facility: [facility] Address: [address] [place] [address] Performed By: #### L [id number] ####VILLAR[facility] LABORATORYCLIA [id number] [address] [place] [facility] Hemoglobin Ql (U) Negative Normal Negative [facility] Comment on above: Order Comment: Speci men Type: URINE SPECIMENOrdering Facility: [facility] Address: [address] [place] [address] Performed By: #### L [id number] ####V[facility] LABORATORYCLIA [id number] [address] [place] Ketones Ql (U) Trace Abnormal Negative [facility] Comment on above: Order Comment: Speci men Type: URINE SPECIMENOrdering Facility: [facility] Address: [address] [place] [address] Performed By: #### L [id number] ####[facility] LABORATORYCLIA [id number] [address] Leukocyte esterase Test strip Ql (U) Trace Abnormal Negative [facility] Comment on above: Order Comment: Speci men Type: URINE SPECIMENOrdering Facility: [facility] Address: [address] [place] [address] Performed By: #### L [id number] ####[facility] LABORATORYCLIA [id number] [place] [address] [place] Nitrite Ql (U) Negative Normal Negative [facility] Comment on above: Order Comment: Speci men Type: URINE SPECIMENOrdering Facility: [facility] Address: [address] [place] [address] Performed By: #### L [id number] ####[facility] LABORATORYCLIA [id number] [address] pH (U) 5.5 [pH] Normal 5.0-8.0 [facility] Comment on above: Order Comment: Speci men Type: URINE SPECIMENOrdering Facility: [facility] Address: [address] [place] [address] Performed By: #### L [id number] ####[facility] LABORATORYCLIA [id number] [address] [place] Protein (U) [Mass/Vol] 2+ Abnormal Negative [facility] Comment on above: Order Comment: Speci men Type: URINE SPECIMENOrdering Facility: [facility] Address: [address] [place] [address] Performed By: #### L [id number] ####[facility] LABORATORYCLIA [id number] [address] [place] RBC LM.HPF (Urine sed) [#/Area] 0-3 /HPF Normal 0-3 /HPF [facility] Comment on above: Order Comment: Speci men Type: URINE SPECIMENOrdering Facility: [facility] Address: [address] [place] [address] Performed By: #### L [id number] ####[facility] LABORATORYCLIA [id number] [address] Specific gravity (U) [Rel density] 1.025 Normal 1.005-1.030 [facility] Comment on above: Order Comment: Speci men Type: URINE SPECIMENOrdering Facility: [facility] Address: [address] [place] [address] Performed By: #### L [id number] ####[facility] LABORATORYCLIA [id number] [address] Urobilinogen Ql (U) 0.2 EU/dL Normal 0.2-1.0 EU/dL [facility] Comment on above: Order Comment: Speci men Type: URINE SPECIMENOrdering Facility: [facility] Address: [address] [place] [address] Performed By: #### L [id number] ####[facility] LABORATORYCLIA [id number] [address] [place] WBC LM.HPF (Urine sed) [#/Area] 6-10 /HPF Abnormal 0-5 /HPF [facility] Comment on above: Order Comment: Speci men Type: URINE SPECIMENOrdering Facility: [facility] Address: [address] [place] [address] Performed By: #### L [id number] ####[facility] LABORATORYCLIA [id number] [address] [place] Yeast.budding LM.HPF (Urine sed) [#/Area] Few Abnormal None Seen [facility] Comment on above: Order Comment: Speci men Type: URINE SPECIMENOrdering Facility: [facility] Address: [address] [place] [address] Performed By: #### L [id number] ####[facility] LABORATORYCLIA [id number] [place] [address] [place] ALLIED HEALTHon 11-30-2024 ALLIED HEALTH Normal [facility] Bacteria Bld Culton 11-30-19 25 Bacteria identified Cx Nom (Bld) CULTURE, BLOOD: No growth 5 days Normal [facility] Comment on above: Performed By: #### 6 00-7 ####[facility] LABCLIA [id number] [place] [address] [place] Bacteria identified Cx Nom (Bld) CULTURE, BLOOD: No growth 5 days Normal [facility] Comment on above: Performed By: #### 6 00-7 ####[facility] LABCLIA [id number] [place] [address] [place] Basic metabolic 2000 panelon 11-30-2024 Anion gap [Moles/Vol] 12 mmol/L Normal 8-15 [facility] Comment on above: Order Comment: Speci men Type: BLOOD SPECIMENOrdering Facility: [facility] Address: [address] [place] [address] Performed By: #### 2 4321-2, 08588-1 ####[facility] LABORATORYCLIA [id number] [place] [address] [place] Calcium [Mass/Vol] 9.1 mg/dL Normal 8.5-10.2 [facility] Comment on above: Order Comment: Speci men Type: BLOOD SPECIMENOrdering Facility: [facility] Address: [address] [place] [address] Performed By: #### 2 4321-2, ####[facility] LABORATORYCLIA [id number] [place] [address] [place] Chloride [Moles/Vol] 95 mmol/L Low 98-107 [facility] Comment on above: Order Comment: Speci men Type: BLOOD SPECIMENOrdering Facility: [facility] Address: [address] [place] [address] Performed By: #### 2 4321-2, ####[facility] LABORATORYCLIA [id number] [place] [address] [place] CO2 [Moles/Vol] 25 mmol/L Normal 22-30 [facility] Comment on above: Order Comment: Speci men Type: BLOOD SPECIMENOrdering Facility: [facility] Address: [address] [place] [address] Performed By: #### 2 4321-2, ####[facility] LABORATORYCLIA [id number] [place] [address] [place] Creatinine [Mass/Vol] 0.86 mg/dL Normal 0.58-0.96 [facility] Comment on above: Order Comment: Speci men Type: BLOOD SPECIMENOrdering Facility: [facility] Address: [address] [place] [address] Performed By: #### 2 4321-2, ####[facility] LABORATORYCLIA [id number] [place] [address] [place] [facility] [place] Creatinine and Glomerular filtration rate.predicted panel (S/P/Bld) 65 mL/min/1.73m??? Normal >=60 [facility] Comment on above: Order Comment: Speci men Type: BLOOD SPECIMENOrdering Facility: [facility] Address: [address] [place] [address] Result Comment: Hilda mated Glomerular Filtration Rate [...] actual GFR. Performed By: #### 2 43211-15, ####[facility] LABORATORYCLIA [id number] [place] [address] [place] Glucose [Mass/Vol] 237 mg/dL High 74-99 [facility] Comment on above: Order Comment: Fan meade Type: BLOOD SPECIMENOrdering Facility: [facility] Address: [address] [place], [place] [address] Result Comment: The [place] [employer] (ADA) provides guidance for cutoff [...] Standards of Medical Care in Diabetes 2016, [place] [employer]. Diabetes Care. 2016.39(Suppl 1). Performed By: #### 2 4320-12, ####[facility] LABORATORYCLIA [id number] [place] [address] [place] Potassium [Moles/Vol] 4.2 mmol/L Normal 3.7-5.1 [facility] Comment on above: Order Comment: Fan [place]ade Type: BLOOD SPECIMENOrdering Facility: [facility] Address: [address] [place] [address] Performed By: #### 2 43211-15, ####[facility] LABORATORYCLIA [id number] [place] [address] [place] Sodium [Moles/Vol] 132 mmol/L Low 136-144 [facility] Comment on above: Order Comment: Speci men Type: BLOOD SPECIMENOrdering Facility: [facility] Address: [address] [place] [address] Performed By: #### 2 4321-2, ####[facility] LABORATORYCLIA [id number] [address] [place] [facility] Urea nitrogen [Mass/Vol] 26 mg/dL High 7-21 [facility] Comment on above: Order Comment: Speci men Type: BLOOD SPECIMENOrdering Facility: [facility] Address: [address] [place] [address] Performed By: #### 2 4321-2, ####[facility] LABORATORYCLIA [id number] [address] OF [facility] CASE MANAGEMon 11-30-2024 CASE MANAGEM [facility] CASE MANAGEM [facility] CBC W Auto Differential pane l (Bld)on 11-30-2024 Basophils (Bld) [#/Vol] 0.05 10*3/uL Normal <0.11 [facility] Comment on above: Order Comment: Speci men Type: BLOOD SPECIMENOrdering Facility: [facility] Address: [address] [place] [address] Performed By: #### 5 7021-8 ####[facility] LABORATORYCLIA [id number] [address] [place] Basophils/100 WBC (Bld) 0.3 % Normal [facility] Comment on above: Order Comment: Speci men Type: BLOOD SPECIMENOrdering Facility: [facility] Address: [address] [place] [address] Performed By: #### 5 7021-8 ####VILLARREAL LABORATORYCLIA [id number] [address] [place] [facility] Differential cell count method Nom (Bld) Auto Normal [facility] Comment on above: Order Comment: Speci men Type: BLOOD SPECIMENOrdering Facility: [facility] Address: [address] [place] [address] Performed By: #### 5 7021-8 ####VILLARRE[facility] LABORATORYCLIA [id number] [address] [place] Eosinophils (Bld) [#/Vol] 0.27 10*3/uL Normal <0.46 [facility] Comment on above: Order Comment: Speci men Type: BLOOD SPECIMENOrdering Facility: [facility] Address: [address] [place] [address] Performed By: #### 5 7021-8 ####VILLARRE[facility] LABORATORYCLIA [id number] [address] [place] Eosinophils/100 WBC (Bld) 1.8 % Normal [facility] Comment on above: Order Comment: Speci men Type: BLOOD SPECIMENOrdering Facility: [facility] Address: [address] [place] [address] Performed By: #### 5 7021-8 ####VILL[facility]RE[facility] LABORATORYCLIA [id number] [address] [place] Erythrocyte distribution width (RBC) [Ratio] 15.6 % High 11.5-15.0 [facility] Comment on above: Order Comment: Speci men Type: BLOOD SPECIMENOrdering Facility: [facility] Address: [address] [place] [address] Performed By: #### 5 7021-8 ####VILLARREAL LABORATORYCLIA [id number] [address] [place] Hematocrit (Bld) [Volume fraction] 29.9 % Low 36.0-46.0 [facility] Comment on above: Order Comment: Speci men Type: BLOOD SPECIMENOrdering Facility: [facility] Address: [address] [place] [address] Performed By: #### 5 7021-8 ####VILLARREAL LABORATORYCLIA [id number] [address] [place] Hemoglobin (Bld) [Mass/Vol] 9.9 g/dL Low 11.5-15.5 [facility] Comment on above: Order Comment: Speci men Type: BLOOD SPECIMENOrdering Facility: [facility] Address: [address] [place] [address] Performed By: #### 5 7021-8 ####VILLARREAL LABORATORYCLIA [id number] [address] [place] Immature granulocytes (Bld) [#/Vol] 0.24 10*3/uL High <0.10 [facility] Comment on above: Order Comment: Speci men Type: BLOOD SPECIMENOrdering Facility: [facility] Address: [address] [place] [address] Performed By: #### 5 7021-8 ####VILLARREAL LABORATORYCLIA [id number] [address] Immature granulocytes/100 WBC (Bld) 1.6 % Normal [facility] Comment on above: Order Comment: Speci men Type: BLOOD SPECIMENOrdering Facility: [facility] Address: [address] [place] [address] Performed By: #### 5 7021-8 ####VILLARREAL LABORATORYCLIA [id number] [address] [place] Lymphocytes (Bld) [#/Vol] 0.92 10*3/uL Low 1.00-4.00 [facility] Comment on above: Order Comment: Speci men Type: BLOOD SPECIMENOrdering Facility: [facility] Address: [address] [place] [address] Performed By: #### 5 7021-8 ####VILLARREAL LABORATORYCLIA [id number] [address] Lymphocytes/100 WBC (Bld) 6.1 % Normal [facility] Comment on above: Order Comment: Speci men Type: BLOOD SPECIMENOrdering Facility: [facility] Address: [address] [place] [address] Performed By: #### 5 7021-8 ####VILLARREAL LABORATORYCLIA [id number] [place] [address] [place] MCH (RBC) [Entitic mass] 28.3 pg Normal 26.0-34.0 [facility] Comment on above: Order Comment: Speci men Type: BLOOD SPECIMENOrdering Facility: [facility] Address: [address] [place] [address] Performed By: #### 5 7021-8 ####VILLARREAL LABORATORYCLIA [id number] [place] [address] [place] MCHC (RBC) [Mass/Vol] 33.1 g/dL Normal 30.5-36.0 [facility] Comment on above: Order Comment: Speci men Type: BLOOD SPECIMENOrdering Facility: [facility] Address: [address] [place] [address] Performed By: #### 5 7021-8 ####VILLARREAL LABORATORYCLIA [id number] [place] [address] [place] MCV (RBC) [Entitic vol] 85.4 fL Normal 80.0-100.0 [facility] Comment on above: Order Comment: Speci men Type: BLOOD SPECIMENOrdering Facility: [facility] Address: [address] [place] [address] Performed By: #### 5 7021-8 ####VILLARREAL LABORATORYCLIA [id number] [place] [address] [place] Monocytes (Bld) [#/Vol] 0.99 10*3/uL High <0.87 [facility] Comment on above: Order Comment: Speci men Type: BLOOD SPECIMENOrdering Facility: [facility] Address: [address] [place] [address] Performed By: #### 5 7021-8 ####VILLARREAL LABORATORYCLIA [id number] [address] Monocytes/100 WBC (Bld) 6.6 % Normal [facility] Comment on above: Order Comment: Speci men Type: BLOOD SPECIMENOrdering Facility: [facility] Address: [address] [place] [address] Performed By: #### 5 7021-8 ####VILLARREAL LABORATORYCLIA [id number] [place] [address] [place] Neutrophils (Bld) [#/Vol] 12.52 10*3/uL High 1.45-7.50 [facility] Comment on above: Order Comment: Speci men Type: BLOOD SPECIMENOrdering Facility: [facility] Address: [address] [place] [address] Performed By: #### 5 7021-8 ####VILLARREAL LABORATORYCLIA [id number] [address] Neutrophils/100 WBC (Bld) 83.6 % Normal [facility] Comment on above: Order Comment: Speci men Type: BLOOD SPECIMENOrdering Facility: [facility] Address: [address] [place] [address] Performed By: #### 5 7021-8 ####VILLARREAL LABORATORYCLIA [id number] [place] [address] [place] Nucleated RBC (Bld) [#/Vol] 10*3/uL Normal <0.01 [facility] Comment on above: Order Comment: Speci men Type: BLOOD SPECIMENOrdering Facility: [facility] Address: [address] [place] [address] Performed By: #### 5 7021-8 ####VILLARREAL LABORATORYCLIA [id number] [address] [place] [facility] Nucleated RBC/100 WBC (Bld) [Ratio] 0.0 /100 WBC Normal [facility] Comment on above: Order Comment: Speci men Type: BLOOD SPECIMENOrdering Facility: [facility] Address: [facility] [place] [address] Performed By: #### 5 7021-8 ####VILLARREAL LABORATORYCLIA [id number] [address] [place] Platelet mean volume (Bld) [Entitic vol] 8.6 fL Low 9.0-12.7 [facility] Comment on above: Order Comment: Speci men Type: BLOOD SPECIMENOrdering Facility: [facility] Address: [address] [place] [address] Performed By: #### 5 7021-8 ####VILLARREAL LABORATORYCLIA [id number] [address] [place] Platelets (Bld) [#/Vol] 436 10*3/uL High 150-400 [facility] Comment on above: Order Comment: Speci men Type: BLOOD SPECIMENOrdering Facility: [facility] Address: [address] [place] [address] Performed By: #### 5 7021-8 ####[facility] LABORATORYCLIA [id number] [place] [address] [place] RBC (Bld) [#/Vol] 3.50 10*6/uL Low 3.90-5.20 [facility] Comment on above: Order Comment: Speci men Type: BLOOD SPECIMENOrdering Facility: [facility] Address: [address] [place] [address] Performed By: #### 5 7021-8 ####[facility] LABORATORYCLIA [id number] [place] [address] [place] WBC (Bld) [#/Vol] 14.99 10*3/uL High 3.70-11.00 [facility] Comment on above: Order Comment: Speci men Type: BLOOD SPECIMENOrdering Facility: [facility] Address: [address] [place] [address] Performed By: #### 5 7021-8 ####[facility] LABORATORYCLIA [id number] [address] CONSULT PROGon 11-30-2024 [facility] Magnesium SerPl-mCncon 11-30 Magnesium [Mass/Vol] 1.6 mg/dL Low 1.7-2.3 [facility] Comment on above: Order Comment: Speci men Type: BLOOD SPECIMENOrdering Facility: [facility] Address: [address] [place] [address] Performed By: #### 2 4321-2, 77678-8 ####[facility] LABORATORYCLIA [id number] [address] [place] Urinalysis complete panel (U )on 11-30-2024 Bacteria LM.HPF (Urine sed) [#/Area] Few Abnormal None Seen [facility] Comment on above: Order Comment: Speci men Type: URINE SPECIMENOrdering Facility: [facility] Address: [address] [place] [address] Performed By: #### 2 4356-8 ####VILLARREAL LABORATORYCLIA [id number] [place] [address] [place] Bilirubin Ql (U) Negative Normal Negative [facility] Comment on above: Order Comment: Speci men Type: URINE SPECIMENOrdering Facility: [facility] Address: [address] [place] [address] Performed By: #### 2 4356-8 ####VILLARREAL LABORATORYCLIA [id number] [address] [place] Clarity (Unsp spec) Clear Normal Clear [facility] Comment on above: Order Comment: Speci men Type: URINE SPECIMENOrdering Facility: [facility] Address: [address] [place] [address] Performed By: #### 2 4356-8 ####VILLARREAL LABORATORYCLIA [id number] [address] Color (U) Yellow Normal Yellow [facility] Comment on above: Order Comment: Speci men Type: URINE SPECIMENOrdering Facility: [facility] Address: [address] [place] [address] Result Comment: Urin e received in non-preservative tube. Interpret results with caution. To ensure optimal and accurate results, transfer urine to the BD Vacutainer Plus urine preservative tube. Performed By: #### 2 4356-8 ####VILLARREAL LABORATORYCLIA [id number] [address] [place] Epithelial cells LM.HPF (Urine sed) [#/Area] Few Normal [facility] Comment on above: Order Comment: Speci men Type: URINE SPECIMENOrdering Facility: [facility] Address: [address] [place] [address] Performed By: #### 2 4356-8 ####VILLARREAL LABORATORYCLIA [id number] [place] [id number] [place] Glucose Test strip (U) [Mass/Vol] 1+ Abnormal Negative [facility] Comment on above: Order Comment: Speci men Type: URINE SPECIMENOrdering Facility: [facility] Address: [address] [place] [address] Performed By: #### 2 4356-8 ####VILLARREAL LABORATORYCLIA [id number] [place] [address] [place] Hemoglobin Ql (U) Negative Normal Negative [facility] Comment on above: Order Comment: Speci men Type: URINE SPECIMENOrdering Facility: [facility] Address: [address] [place] [address] Performed By: #### 2 4356-8 ####VILLARREAL LABORATORYCLIA [id number] [place] [address] [place] Ketones Ql (U) Trace Abnormal Negative [facility] Comment on above: Order Comment: Speci men Type: URINE SPECIMENOrdering Facility: [facility] Address: [address] [place] [address] Performed By: #### 2 4356-8 ####VILLARREAL LABORATORYCLIA [id number] [place] [address] [place] Leukocyte esterase Test strip Ql (U) Trace Abnormal Negative [facility] Comment on above: Order Comment: Speci men Type: URINE SPECIMENOrdering Facility: [facility] Address: [address] [place] [address] Performed By: #### 2 4356-8 ####VILLARREAL LABORATORYCLIA [id number] [place] [address] [place] Nitrite Ql (U) Negative Normal Negative [facility] Comment on above: Order Comment: Speci men Type: URINE SPECIMENOrdering Facility: [facility] Address: [address] [place] [address] Performed By: #### 2 4356-8 ####VILLARREAL LABORATORYCLIA [id number] [place] [address] [place] pH (U) 6.5 [pH] Normal 5.0-8.0 [facility] Comment on above: Order Comment: Speci men Type: URINE SPECIMENOrdering Facility: [facility] Address: [address] [place] [address] Performed By: #### 2 4356-8 ####VILLARREAL LABORATORYCLIA [id number] [place] [address] [place] Protein (U) [Mass/Vol] 1+ Abnormal Negative [facility] Comment on above: Order Comment: Speci men Type: URINE SPECIMENOrdering Facility: [facility] Address: [address] [place] [address] Performed By: #### 2 4356-8 ####VILLARREAL LABORATORYCLIA [id number] [address] [place] RBC LM.HPF (Urine sed) [#/Area] 0-3 /HPF Normal 0-3 /HPF [facility] Comment on above: Order Comment: Speci men Type: URINE SPECIMENOrdering Facility: [facility] Address: [address] [place] [address] Performed By: #### 2 4356-8 ####VILLARREAL LABORATORYCLIA [id number] [address] Specific gravity (U) [Rel density] 1.010 Normal 1.005-1.030 [facility] Comment on above: Order Comment: Speci men Type: URINE SPECIMENOrdering Facility: [facility] Address: [address] [place] [address] Performed By: #### 2 4356-8 ####VILLARREAL LABORATORYCLIA [id number] [address] Urobilinogen Ql (U) 0.2 EU/dL Normal 0.2-1.0 EU/dL [facility] Comment on above: Order Comment: Speci men Type: URINE SPECIMENOrdering Facility: [facility] Address: [address] [place] [address] Performed By: #### 2 4356-8 ####VILLARREAL LABORATORYCLIA [id number] [address] [place] WBC LM.HPF (Urine sed) [#/Area] 0-5 /HPF Normal 0-5 /HPF [facility] Comment on above: Order Comment: Speci men Type: URINE SPECIMENOrdering Facility: [facility] Address: [address] [place] [address] Performed By: #### 2 4356-8 ####VILLARREAL LABORATORYCLIA [id number] [address] [place] Yeast.budding LM.HPF (Urine sed) [#/Area] Few Abnormal None Seen [facility] Comment on above: Order Comment: Speci men Type: URINE SPECIMENOrdering Facility: [facility] Address: [address] [place] [address] [place] [address] Performed By: #### 2 4356-8 ####[facility] LABORATORYCLIA [id number] [place] [address] [place] XR CHEST 1V FRONTAL PORTon 0 11-30-2024 XR CHEST 1V FRONTAL PORT Normal [facility] Basic metabolic 2000 panelon 11-29-2024 Anion gap [Moles/Vol] 13 mmol/L Normal 8-15 [facility] Comment on above: Order Comment: Speci men Type: BLOOD SPECIMENOrdering Facility: [facility] Address: [address] [place] [address] Performed By: #### 2 4321-2, ####[facility] LABORATORYCLIA [id number] [place] [address] [place] Calcium [Mass/Vol] 8.8 mg/dL Normal 8.5-10.2 [facility] Comment on above: Order Comment: Speci men Type: BLOOD SPECIMENOrdering Facility: [facility] Address: [address] [place] [address] Performed By: #### 2 4321-2, ####VILLARREAL LABORATORYCLIA [id number] [place] [address] [place] Chloride [Moles/Vol] 95 mmol/L Low 98-107 [facility] Comment on above: Order Comment: Speci men Type: BLOOD SPECIMENOrdering Facility: [facility] Address: [address] [place] [address] Performed By: #### 2 4321-2, ####VILLARREAL LABORATORYCLIA [id number] [place] [address] [place] CO2 [Moles/Vol] 25 mmol/L Normal 22-30 [facility] Comment on above: Order Comment: Speci men Type: BLOOD SPECIMENOrdering Facility: [facility] Address: [address] [place] [address] Performed By: #### 2 4321-2, ####[facility] LABORATORYCLIA [id number] [place] [address] [place] Creatinine [Mass/Vol] 0.80 mg/dL Normal 0.58-0.96 [facility] Comment on above: Order Comment: Fan meade Type: BLOOD SPECIMENOrdering Facility: [facility] Address: [address] [place] [address] Performed By: #### 2 4321-2, ####[facility] LABORATORYCLIA [id number] [place] [address] [place] Creatinine and Glomerular filtration rate.predicted panel (S/P/Bld) 71 mL/min/1.73m??? Normal >=60 [facility] Comment on above: Order Comment: Kate halina Type: BLOOD SPECIMENOrdering Facility: [facility] Address: [address] [place] [address] Result Comment: Hilda mated Glomerular Filtration Rate [...] actual GFR. Performed By: #### 2 4321-2, ####[facility] LABORATORYCLIA [id number] [place] [address] [place] Glucose [Mass/Vol] 287 mg/dL High 74-99 [facility] Comment on above: Order Comment: Fan meade Type: BLOOD SPECIMENOrdering Facility: [facility] Address: [address] [place] [address] Result Comment: The [place] [employer] (ADA) provides guidance for cutoff [...] Standards of Medical Care in Diabetes 2016, [place] [employer]. Diabetes Care. 2016.39(Suppl 1). Performed By: #### 2 4321-2, ####VILLARREAL LABORATORYCLIA [id number] [place] [address] [place] Potassium [Moles/Vol] 4.1 mmol/L Normal 3.7-5.1 [facility] Comment on above: Order Comment: Fan meade Type: BLOOD SPECIMENOrdering Facility: [facility] Address: [address] [place] [address] Performed By: #### 2 432-2, ####VILLARREAL LABORATORYCLIA [id number] [address] [place] [facility] Sodium [Moles/Vol] 133 mmol/L Low 136-144 [facility] Comment on above: Order Comment: Fan meade Type: BLOOD SPECIMENOrdering Facility: [facility] Address: [address] [place] [address] Performed By: #### 2 432-2, ####VILLARREAL LABORATORYCLIA [id number] [address] [place] Urea nitrogen [Mass/Vol] 30 mg/dL High 7-21 [facility] Comment on above: Order Comment: Fan meade Type: BLOOD SPECIMENOrdering Facility: [facility] Address: [address] [place] [address] Performed By: #### 2 2, ####VILLARREAL LABORATORYCLIA [id number] [place] [id number] [place] CASE MANAGEMon 11-29-2024 CASE MANAGEM Normal [facility] CASE MANAGEM Normal [facility] CBC panel Auto (Bld)on 11-29 Erythrocyte distribution width (RBC) [Ratio] 15.2 % High 11.5-15.0 [facility] Comment on above: Order Comment: Fan meade Type: BLOOD SPECIMENOrdering Facility: [facility] Address: [address] [place] [address] Performed By: #### 5 8410-2 ####VILLARREAL LABORATORYCLIA [id number] [address] Hematocrit (Bld) [Volume fraction] 27.9 % Low 36.0-46.0 [facility] Comment on above: Order Comment: Speci men Type: BLOOD SPECIMENOrdering Facility: [facility] Address: [address] [place] [address] Performed By: #### 5 8410-2 ####VILLARREAL LABORATORYCLIA [id number] [address] [place] Hemoglobin (Bld) [Mass/Vol] 9.3 g/dL Low 11.5-15.5 [facility] Comment on above: Order Comment: Speci men Type: BLOOD SPECIMENOrdering Facility: [facility] Address: [address] [place] [address] Performed By: #### 5 8410-2 ####VILLARREAL LABORATORYCLIA [id number] [address] MCH (RBC) [Entitic mass] 28.2 pg Normal 26.0-34.0 [facility] Comment on above: Order Comment: Speci men Type: BLOOD SPECIMENOrdering Facility: [facility] Address: [address] [place] [address] Performed By: #### 5 8410-2 ####VILLARREAL LABORATORYCLIA [id number] [address] MCHC (RBC) [Mass/Vol] 33.3 g/dL Normal 30.5-36.0 [facility] Comment on above: Order Comment: Speci men Type: BLOOD SPECIMENOrdering Facility: [facility] Address: [address] [place] [address] Performed By: #### 5 8410-2 ####VILLARREAL LABORATORYCLIA [id number] [address] MCV (RBC) [Entitic vol] 84.5 fL Normal 80.0-100.0 [facility] Comment on above: Order Comment: Speci men Type: BLOOD SPECIMENOrdering Facility: [facility] Address: [address] [place] [address] Performed By: #### 5 8410-2 ####VILLARRE[facility] LABORATORYCLIA [id number] [place] [address] [place] Nucleated RBC (Bld) [#/Vol] 10*3/uL Normal <0.01 [facility] Comment on above: Order Comment: Speci men Type: BLOOD SPECIMENOrdering Facility: [facility] Address: [address] [place] [address] Performed By: #### 5 8410-2 ####VILLARREAL LABORATORYCLIA [id number] [place] [address] [place] Platelet mean volume (Bld) [Entitic vol] 8.8 fL Low 9.0-12.7 [facility] Comment on above: Order Comment: Speci men Type: BLOOD SPECIMENOrdering Facility: [facility] Address: [address] [place] [address] Performed By: #### 5 8410-2 ####VILLARREAL LABORATORYCLIA [id number] [address] [place] Platelets (Bld) [#/Vol] 425 10*3/uL High 150-400 [facility] Comment on above: Order Comment: Speci men Type: BLOOD SPECIMENOrdering Facility: [facility] Address: [address] [place] [address] Performed By: #### 5 8410-2 ####VILLARRE[facility] LABORATORYCLIA [id number] [place] [address] [place] RBC (Bld) [#/Vol] 3.30 10*6/uL Low 3.90-5.20 [facility] Comment on above: Order Comment: Speci men Type: BLOOD SPECIMENOrdering Facility: [facility] Address: [address] [place] [address] Performed By: #### 5 8410-2 ####VILLARRE[facility] LABORATORYCLIA [id number] [place] [address] [place] WBC (Bld) [#/Vol] 12.17 10*3/uL High 3.70-11.00 [facility] Comment on above: Order Comment: Speci men Type: BLOOD SPECIMENOrdering Facility: [facility] Address: [address] [place] [address] Performed By: #### 5 8410-2 ####[facility] LABORATORYCLIA [id number] [place], [place] [address] [place] [address] [place] CONSULT PROGon 11-29-2024 CONSULT PROG Normal [facility] CONSULT PROG Normal [facility] Magnesium SerPl-mCncon 11-29 Magnesium [Mass/Vol] 1.4 mg/dL Low 1.7-2.3 [facility] Comment on above: Order Comment: Speci men Type: BLOOD SPECIMENOrdering Facility: [facility] Address: [address] [place] [address] Performed By: #### 2 4321-2, ####[facility] LABORATORYCLIA [id number] [place] [address] [place] Basic metabolic 2000 panelon 11-28-2024 Anion gap [Moles/Vol] 14 mmol/L Normal 8-15 [facility] Comment on above: Order Comment: Speci men Type: BLOOD SPECIMENOrdering Facility: [facility] Address: [address] [place] [address] Performed By: #### 2 4321-2, , 2776-11 ####[facility] LABORATORYCLIA [id number] [place] [address] [place] Calcium [Mass/Vol] 9.4 mg/dL Normal 8.5-10.2 [facility] Comment on above: Order Comment: Speci men Type: BLOOD SPECIMENOrdering Facility: [facility] Address: [address] [place] [address] Performed By: #### 2 4321-2, , 2776-11 ####VILLARRE[facility] LABORATORYCLIA [id number] [address] [place] Chloride [Moles/Vol] 96 mmol/L Low 98-107 [facility] Comment on above: Order Comment: Speci men Type: BLOOD SPECIMENOrdering Facility: [facility] Address: [address] [place], [place] [address] [id number] Performed By: #### 2 4321-2, , 2776-11 ####VILLARRE[facility] LABORATORYCLIA [id number] [place] [address] [place] CO2 [Moles/Vol] 25 mmol/L Normal 22-30 [facility] Comment on above: Order Comment: Speci men Type: BLOOD SPECIMENOrdering Facility: [facility] Address: [address] [place] [address] Performed By: #### 2 4321-2, , 2776-11 ####V[facility] LABORATORYCLIA [id number] [address] [place] Creatinine [Mass/Vol] 0.80 mg/dL Normal 0.58-0.96 [facility] Comment on above: Order Comment: Speci men Type: BLOOD SPECIMENOrdering Facility: [facility] Address: [address] [place] [address] Performed By: #### 2 432-2, , 2776-11 ####VILLARRE[facility] LABORATORYCLIA [id number] [address] Creatinine and Glomerular filtration rate.predicted panel (S/P/Bld) 71 mL/min/1.73m??? Normal >=60 [facility] Comment on above: Order Comment: Speci men Type: BLOOD SPECIMENOrdering Facility: [facility] Address: [address] [place] [address] Result Comment: Hilda mated Glomerular Filtration Rate [...] #### 2 4321-2, , 2776-11 ####VILLARRE[facility] LABORATORYCLIA [id number] [place] [address] [place] Glucose [Mass/Vol] 149 mg/dL High 74-99 [facility] Comment on above: Order Comment: Fan meade Type: BLOOD SPECIMENOrdering Facility: [facility] Address: [address] [place] [address] Result Comment: The [place] [employer] (ADA) provides guidance for cutoff [...] Standards of Medical Care in Diabetes 2016, [place] [employer]. Diabetes Care. 2016.39(Suppl 1). Performed By: #### 2 4321-2, , 2776-11 ####[facility]ILL[facility] LABORATORYCLIA [id number] [place] [address] [place] Potassium [Moles/Vol] 4.6 mmol/L Normal 3.7-5.1 [facility] Comment on above: Order Comment: Fan meade Type: BLOOD SPECIMENOrdering Facility: [facility] Address: [address] [place] [address] Performed By: #### 2 4321-2, , 2776-11 ####[facility]RE[facility] LABORATORYCLIA [id number] [place] [address] [place] Sodium [Moles/Vol] 135 mmol/L Low 136-144 [facility] Comment on above: Order Comment: Fan meade Type: BLOOD SPECIMENOrdering Facility: [facility] Address: [address] [place] [address] Performed By: #### 2 4321-2, , 2776-11 ####VILLARREAL LABORATORYCLIA [id number] [place] [address] [place] Urea nitrogen [Mass/Vol] 28 mg/dL High 7-21 [facility] Comment on above: Order Comment: Fan men Type: BLOOD SPECIMENOrdering Facility: [facility] Address: [address] [place] [address] Performed By: #### 2 4321-2, 37939-9, 2777-1 ####VILLARRE[facility] LABORATORYCLIA [id number] [place] [address] [place] CASE MANAGEMon 11-28-2024 CASE MANAGEM Normal [facility] CBC W Auto Differential pane l (Bld)on 11-28-2024 Basophils (Bld) [#/Vol] 0.05 10*3/uL Normal <0.11 [facility] Comment on above: Order Comment: Speci men Type: BLOOD SPECIMENOrdering Facility: [facility] Address: [address] [place] [address] Performed By: #### 5 7021-8 ####VILLARRE[facility] LABORATORYCLIA [id number] [address] [place] Basophils/100 WBC (Bld) 0.5 % Normal [facility] Comment on above: Order Comment: Speci men Type: BLOOD SPECIMENOrdering Facility: [facility] Address: [address] [place] [address] Performed By: #### 5 7021-8 ####VILLARREAL LABORATORYCLIA [id number] [address] [place] [facility] Differential cell count method Nom (Bld) Auto Normal [facility] Comment on above: Order Comment: Speci men Type: BLOOD SPECIMENOrdering Facility: [facility] Address: [address] [place] [address] Performed By: #### 5 7021-8 ####VILLARREAL LABORATORYCLIA [id number] [place] [address] [place] Eosinophils (Bld) [#/Vol] 0.43 10*3/uL Normal <0.46 [facility] Comment on above: Order Comment: Speci men Type: BLOOD SPECIMENOrdering Facility: [facility] Address: [address] [place] [address] Performed By: #### 5 7021-8 ####VILLARREAL LABORATORYCLIA [id number] [place] [address] [place] Eosinophils/100 WBC (Bld) 3.9 % Normal [facility] Comment on above: Order Comment: Speci men Type: BLOOD SPECIMENOrdering Facility: [facility] Address: [address] [place] [address] Performed By: #### 5 7021-8 ####VILLARREAL LABORATORYCLIA [id number] [place] [address] [place] Erythrocyte distribution width (RBC) [Ratio] 15.3 % High 11.5-15.0 [facility] Comment on above: Order Comment: Speci men Type: BLOOD SPECIMENOrdering Facility: [facility] Address: [address] [place] [address] Performed By: #### 5 7021-8 ####VILLARREAL LABORATORYCLIA [id number] [place] [address] [place] Hematocrit (Bld) [Volume fraction] 32.2 % Low 36.0-46.0 [facility] Comment on above: Order Comment: Speci men Type: BLOOD SPECIMENOrdering Facility: [facility] Address: [address] [place] [address] Performed By: #### 5 7021-8 ####VILLARREAL LABORATORYCLIA [id number] [place] [address] [place] Hemoglobin (Bld) [Mass/Vol] 10.4 g/dL Low 11.5-15.5 [facility] Comment on above: Order Comment: Speci men Type: BLOOD SPECIMENOrdering Facility: [facility] Address: [address] [place] [address] Performed By: #### 5 7021-8 ####VILLARREAL LABORATORYCLIA [id number] [place] [address] [place] Immature granulocytes (Bld) [#/Vol] 0.17 10*3/uL High <0.10 [facility] Comment on above: Order Comment: Speci men Type: BLOOD SPECIMENOrdering Facility: [facility] Address: [address] [place] [address] Performed By: #### 5 7021-8 ####VILLARREAL LABORATORYCLIA [id number] [address] Immature granulocytes/100 WBC (Bld) 1.6 % Normal [facility] Comment on above: Order Comment: Speci men Type: BLOOD SPECIMENOrdering Facility: [facility] Address: [address] [place] [address] Performed By: #### 5 7021-8 ####VILLARREAL LABORATORYCLIA [id number] [place] [address] [place] Lymphocytes (Bld) [#/Vol] 0.95 10*3/uL Low 1.00-4.00 [facility] Comment on above: Order Comment: Speci men Type: BLOOD SPECIMENOrdering Facility: [facility] Address: [address] [place] [address] Performed By: #### 5 7021-8 ####VILLARREAL LABORATORYCLIA [id number] [address] Lymphocytes/100 WBC (Bld) 8.7 % Normal [facility] Comment on above: Order Comment: Speci men Type: BLOOD SPECIMENOrdering Facility: [facility] Address: [address] [place] [address] Performed By: #### 5 7021-8 ####VILLARREAL LABORATORYCLIA [id number] [place] [address] [place] MCH (RBC) [Entitic mass] 27.7 pg Normal 26.0-34.0 [facility] Comment on above: Order Comment: Speci men Type: BLOOD SPECIMENOrdering Facility: [facility] Address: [address] [place] [address] Performed By: #### 5 7021-8 ####VILLARREAL LABORATORYCLIA [id number] [address] [place] MCHC (RBC) [Mass/Vol] 32.3 g/dL Normal 30.5-36.0 [facility] Comment on above: Order Comment: Speci men Type: BLOOD SPECIMENOrdering Facility: [facility] Address: [address] [place] [address] Performed By: #### 5 7021-8 ####VILLARRE[facility] LABORATORYCLIA [id number] [place] [address] [place] MCV (RBC) [Entitic vol] 85.6 fL Normal 80.0-100.0 [facility] Comment on above: Order Comment: Speci men Type: BLOOD SPECIMENOrdering Facility: [facility] Address: [address] [place] [address] Performed By: #### 5 7021-8 ####VILLARREAL LABORATORYCLIA [id number] [place] [address] [place] Monocytes (Bld) [#/Vol] 0.89 10*3/uL High <0.87 [facility] Comment on above: Order Comment: Speci men Type: BLOOD SPECIMENOrdering Facility: [facility] Address: [address] [place] [address] Performed By: #### 5 7021-8 ####VILLARREAL LABORATORYCLIA [id number] [address] [place] Monocytes/100 WBC (Bld) 8.1 % Normal [facility] Comment on above: Order Comment: Speci men Type: BLOOD SPECIMENOrdering Facility: [facility] Address: [address] [place] [address] Performed By: #### 5 7021-8 ####VILLARREAL LABORATORYCLIA [id number] [place] [address] [place] Neutrophils (Bld) [#/Vol] 8.45 10*3/uL High 1.45-7.50 [facility] Comment on above: Order Comment: Speci men Type: BLOOD SPECIMENOrdering Facility: [facility] Address: [address] [place] [address] Performed By: #### 5 7021-8 ####VILLARRE[facility] LABORATORYCLIA [id number] [place] [address] [place] Neutrophils/100 WBC (Bld) 77.2 % Normal [facility] Comment on above: Order Comment: Speci men Type: BLOOD SPECIMENOrdering Facility: [facility] Address: [address] [place] [address] Performed By: #### 5 7021-8 ####VILLAR[facility] LABORATORYCLIA [id number] [place] [address] [place] Nucleated RBC (Bld) [#/Vol] 10*3/uL Normal <0.01 [facility] Comment on above: Order Comment: Speci men Type: BLOOD SPECIMENOrdering Facility: [facility] Address: [address] [place] [address] Performed By: #### 5 7021-8 ####VILLARREAL LABORATORYCLIA [id number] [place] [address] [place] Nucleated RBC/100 WBC (Bld) [Ratio] 0.0 /100 WBC Normal [facility] Comment on above: Order Comment: Speci men Type: BLOOD SPECIMENOrdering Facility: [facility] Address: [address] [place] [address] Performed By: #### 5 7021-8 ####VILLARREAL LABORATORYCLIA [id number] [place] [address] [place] Platelet mean volume (Bld) [Entitic vol] 9.0 fL Normal 9.0-12.7 [facility] Comment on above: Order Comment: Speci men Type: BLOOD SPECIMENOrdering Facility: [facility] Address: [address] [place] [address] Performed By: #### 5 7021-8 ####VILLARREAL LABORATORYCLIA [id number] [place] [address] [place] Platelets (Bld) [#/Vol] 413 10*3/uL High 150-400 [facility] Comment on above: Order Comment: Speci men Type: BLOOD SPECIMENOrdering Facility: [facility] Address: [address] [place] [address] Performed By: #### 5 7021-8 ####VILLARREAL LABORATORYCLIA [id number] [place] [address] [place] RBC (Bld) [#/Vol] 3.76 10*6/uL Low 3.90-5.20 [facility] Comment on above: Order Comment: Speci men Type: BLOOD SPECIMENOrdering Facility: [facility] Address: [address] [place] [address] Performed By: #### 5 7021-8 ####VILLARREAL LABORATORYCLIA [id number] [place] [address] [place] WBC (Bld) [#/Vol] 10.94 10*3/uL Normal 3.70-11.00 [facility] Comment on above: Order Comment: Speci men Type: BLOOD SPECIMENOrdering Facility: [facility] Address: [facility] [place] [id number] Performed By: #### 5 7021-8 ####[facility] LABORATORYCLIA [id number] [place] [id number] [place] CONSULT PROGon 11-28-2024 CONSULT PROG Normal [facility] CONSULT PROG Normal [facility] Magnesium SerPl-mCncon 11-28 Magnesium [Mass/Vol] 1.9 mg/dL Normal 1.7-2.3 [facility] Comment on above: Order Comment: Speci men Type: BLOOD SPECIMENOrdering Facility: [facility] Address: [address] [place], [place] [address] [phone] Performed By: #### 2 4321-2, , 2776-11 ####[facility] LABORATORYCLIA [id number] [place] [id number] [place] Phosphate SerPl-mCncon 11-28 Phosphate [Mass/Vol] 3.4 mg/dL Normal 2.7-4.8 [facility] Comment on above: Order Comment: Speci men Type: BLOOD SPECIMENOrdering Facility: [facility] Address: [address] [place], [place] [address] [phone] Performed By: #### 2 4321-2, , 27705-14 ####[facility] LABORATORYCLIA [id number] [place] [address] [place] THERAPY NTon 11-28-2024 THERAPY NT [facility] THERAPY NT [facility] ALLIED HEALTHon 11-27-2024 ALLIED HEALTH [facility] ANES POSTPROC EVALon 025 ANES POSTPROC EVAL Normal [facility] ANES PRE-OPon 11-27-2024 ANES PRE-OP [facility] Bacteria Spec Anaerobe Culto n 11-27-2024 Bacteria identified Anaer cx Nom (Unsp spec) Negative Normal [facility] Comment on above: Performed By: #### 6 35-3, 6462-6 ####[facility] LABCLIA [id number] [address] [address] [place] Bacteria Wnd Culton 11-27-19 25 Bacteria identified Cx Nom (Wound) Abnormal [facility] Comment on above: Performed By: #### 6 35-3, 6462-6 ####[facility] LABCLIA [id number] [address] [address] [place] Basic metabolic 2000 panelon 11-27-2024 Anion gap [Moles/Vol] 13 mmol/L Normal 8-15 [facility] Comment on above: Order Comment: Speci men Type: BLOOD SPECIMENOrdering Facility: [facility] Address: [address] [place] [address] Performed By: #### 2 4321-2, , 2776-11 ####[facility] LABORATORYCLIA [id number] [place] [address] [place] Calcium [Mass/Vol] 9.0 mg/dL Normal 8.5-10.2 [facility] Comment on above: Order Comment: Speci men Type: BLOOD SPECIMENOrdering Facility: [facility] Address: [address] [place] [address] Performed By: #### 2 4321-2, , 2776-11 ####[facility] LABORATORYCLIA [id number] [place] [address] [place] Chloride [Moles/Vol] 94 mmol/L Low 98-107 [facility] Comment on above: Order Comment: Speci men Type: BLOOD SPECIMENOrdering Facility: [facility] Address: [address] [place] [address] Performed By: #### 2 4321-2, , 2776-11 ####VILLARRE[facility] LABORATORYCLIA [id number] [place] [address] [place] CO2 [Moles/Vol] 25 mmol/L Normal 22-30 [facility] Comment on above: Order Comment: Fan meade Type: BLOOD SPECIMENOrdering Facility: [facility] Address: [address] [place] [address] Performed By: #### 2 4321-2, , 2776-11 ####VILLARREAL LABORATORYCLIA [id number] [place] [address] [place] Creatinine [Mass/Vol] 0.76 mg/dL Normal 0.58-0.96 [facility] Comment on above: Order Comment: Fan men Type: BLOOD SPECIMENOrdering Facility: [facility] Address: [address] [place] [address] Performed By: #### 2 4321-2, , 2776-11 ####VILLARRE[facility] LABORATORYCLIA [id number] [place] [id number] [facility] Creatinine and Glomerular filtration rate.predicted panel (S/P/Bld) 75 mL/min/1.73m??? Normal >=60 [facility] Comment on above: Order Comment: Fan meade Type: BLOOD SPECIMENOrdering Facility: [facility] Address: [address] [place] [address] Result Comment: Hilda mated Glomerular Filtration Rate [...] #### 2 4321-2, , 2776-11 ####VILLARRE[facility] LABORATORYCLIA [id number] [place] [address] [place] Glucose [Mass/Vol] 251 mg/dL High 74-99 [facility] Comment on above: Order Comment: Fan halina Type: BLOOD SPECIMENOrdering Facility: [facility] Address: [address] [place] [address] Result Comment: The [place] [employer] (ADA) provides guidance for cutoff [...] Standards of Medical Care in Diabetes 2016, [place] [employer]. Diabetes Care. 2016.39(Suppl 1). Performed By: #### 2 4321-2, , 2776-11 ####VILLARRE[facility] LABORATORYCLIA [id number] [place] [address] [place] Potassium [Moles/Vol] 3.6 mmol/L Low 3.7-5.1 [facility] Comment on above: Order Comment: Fan meade Type: BLOOD SPECIMENOrdering Facility: [facility] Address: [address] [place] [address] Performed By: #### 2 4321-2, , 2776-11 ####VILLAR[facility] LABORATORYCLIA [id number] [place] [address] [place] Sodium [Moles/Vol] 132 mmol/L Low 136-144 [facility] Comment on above: Order Comment: Fan meade Type: BLOOD SPECIMENOrdering Facility: [facility] Address: [address] [place] [address] Performed By: #### 2 4321-2, , 2776-11 ####V[facility] LABORATORYCLIA [id number] [place] [address] [place] Urea nitrogen [Mass/Vol] 29 mg/dL High 7-21 [facility] Comment on above: Order Comment: Fan meade Type: BLOOD SPECIMENOrdering Facility: [facility] Address: [address] [place] [address] Performed By: #### 2 4321-2, , 2776-11 ####VILLAR[facility] LABORATORYCLIA [id number] [address] [place] CASE MANAGEMon 11-27-2024 CASE MANAGEM Normal [facility] CBC panel Auto (Bld)on 11-27 Erythrocyte distribution width (RBC) [Ratio] 15.1 % High 11.5-15.0 [facility] Comment on above: Order Comment: Speci men Type: BLOOD SPECIMENOrdering Facility: [facility] Address: [address] [place] [address] Performed By: #### 5 8410-2 ####VILLARRE[facility] LABORATORYCLIA [id number] [address] Hematocrit (Bld) [Volume fraction] 29.3 % Low 36.0-46.0 [facility] Comment on above: Order Comment: Speci men Type: BLOOD SPECIMENOrdering Facility: [facility] Address: [address] [place] [address] Performed By: #### 5 8410-2 ####VILL[facility] LABORATORYCLIA [id number] [address] Hemoglobin (Bld) [Mass/Vol] 9.9 g/dL Low 11.5-15.5 [facility] Comment on above: Order Comment: Speci men Type: BLOOD SPECIMENOrdering Facility: [facility] Address: [address] [place] [address] Performed By: #### 5 8410-2 ####VILLARRE[facility] LABORATORYCLIA [id number] [address] MCH (RBC) [Entitic mass] 28.2 pg Normal 26.0-34.0 [facility] Comment on above: Order Comment: Speci men Type: BLOOD SPECIMENOrdering Facility: [facility] Address: [address] [place] [address] Performed By: #### 5 8410-2 ####VILLARRE[facility] LABORATORYCLIA [id number] [address] MCHC (RBC) [Mass/Vol] 33.8 g/dL Normal 30.5-36.0 [facility] Comment on above: Order Comment: Speci men Type: BLOOD SPECIMENOrdering Facility: [facility] Address: [address] [place], [place] [address], [place] [address] Performed By: #### 5 8410-2 ####VILLARRE[facility] LABORATORYCLIA [id number] [place] [address] [place] MCV (RBC) [Entitic vol] 83.5 fL Normal 80.0-100.0 [facility] Comment on above: Order Comment: Speci men Type: BLOOD SPECIMENOrdering Facility: [facility] Address: [address] [place] [address] Performed By: #### 5 8410-2 ####VILLAR[facility] LABORATORYCLIA [id number] [place] [address] [place] Nucleated RBC (Bld) [#/Vol] 10*3/uL Normal <0.01 [facility] Comment on above: Order Comment: Speci men Type: BLOOD SPECIMENOrdering Facility: [facility] Address: [address] [place] [address] Performed By: #### 5 8410-2 ####V[facility] LABORATORYCLIA [id number] [place] [address] [place] Platelet mean volume (Bld) [Entitic vol] 9.1 fL Normal 9.0-12.7 [facility] Comment on above: Order Comment: Speci men Type: BLOOD SPECIMENOrdering Facility: [facility] Address: [address] [place] [address] Performed By: #### 5 8410-2 ####VILL[facility] LABORATORYCLIA [id number] [place] [address] [place] Platelets (Bld) [#/Vol] 383 10*3/uL Normal 150-400 [facility] Comment on above: Order Comment: Speci men Type: BLOOD SPECIMENOrdering Facility: [facility] Address: [address] [place] [address] [place] [address] Performed By: #### 5 8410-2 ####V[facility] LABORATORYCLIA [id number] [place] [address] [place] RBC (Bld) [#/Vol] 3.51 10*6/uL Low 3.90-5.20 [facility] Comment on above: Order Comment: Speci men Type: BLOOD SPECIMENOrdering Facility: [facility] Address: [facility] [place] [phone] Performed By: #### 5 8410-2 ####VILL[facility]RE[facility] LABORATORYCLIA [id number] [address] [place] WBC (Bld) [#/Vol] 11.65 10*3/uL High 3.70-11.00 [facility] Comment on above: Order Comment: Speci men Type: BLOOD SPECIMENOrdering Facility: [facility] Address: [facility] [place] [phone] Performed By: #### 5 8410-2 ####V[facility] LABORATORYCLIA [id number] [address] [place] CONSULT PROGon 11-27-2024 CONSULT PROG [facility] Magnesium [facility] Magnesium [Mass/Vol] 1.6 mg/dL Low 1.7-2.3 [facility] Comment on above: Order Comment: Speci men Type: BLOOD SPECIMENOrdering Facility: [facility] Address: [address] [place], [place] [address] [phone] Performed By: #### 2 4321-2, 62428-7, 2777-1 ####[facility] LABORATORYCLIA [id number] [place] [address] [place] NUTRITIONon 11-27-2024 NUTRITION Normal [facility] OPERATIVE NOon 11-27-2024 OPERATIVE NO Normal [facility] Phosphate SerPl-ncon 11-27 Phosphate [Mass/Vol] 3.7 mg/dL Normal 2.7-4.8 [facility] Comment on above: Order Comment: Speci men Type: BLOOD SPECIMENOrdering Facility: [facility] Address: [facility] [place] [address] Performed By: #### 2 4321-2, 03433-0, 2777-1 ####V[facility] LABORATORYCLIA [id number] [place] [address] [place] THERAPY NTon 11-27-2024 THERAPY NT Normal [facility] US ABD RIGHT UPPER QUADRANTo n 11-27-2024 US ABD RIGHT UPPER QUADRANT Normal [facility] US ABD SPLEEN -NBon 11-27-19 US ABD SPLEEN -NB Normal [facility] Basic metabolic 2000 panelon 11-26-2024 Anion gap [Moles/Vol] 10 mmol/L Normal 8-15 [facility] Comment on above: Order Comment: Speci men Type: BLOOD SPECIMENOrdering Facility: [facility] Address: [address] [place] [address] Performed By: #### 2 4321-2, , 2776-11 ####[facility] LABORATORYCLIA [id number] [place] [address] [place] Calcium [Mass/Vol] 9.2 mg/dL Normal 8.5-10.2 [facility] Comment on above: Order Comment: Speci men Type: BLOOD SPECIMENOrdering Facility: [facility] Address: [address] [place] [address] Performed By: #### 2 4321-2, , 2776-11 ####[facility] LABORATORYCLIA [id number] [place] [address] [place] Chloride [Moles/Vol] 94 mmol/L Low 98-107 [facility] Comment on above: Order Comment: Speci men Type: BLOOD SPECIMENOrdering Facility: [facility] Address: [address] [place] [address] Performed By: #### 2 4321-2, , 2776-11 ####[facility] LABORATORYCLIA [id number] [place] [id number] [place] CO2 [Moles/Vol] 28 mmol/L Normal 22-30 [facility] Comment on above: Order Comment: Speci men Type: BLOOD SPECIMENOrdering Facility: [facility] Address: [address] [place] [address] Performed By: #### 2 4321-2, , 2776-11 ####[facility] LABORATORYCLIA [id number] [place] [address] [place] Creatinine [Mass/Vol] 0.98 mg/dL High 0.58-0.96 [facility] Comment on above: Order Comment: Speci men Type: BLOOD SPECIMENOrdering Facility: [facility] Address: [address] [place] [address] Performed By: #### 2 4321-2, , 2776-11 ####[facility] LABORATORYCLIA [id number] [place] [id number] [facility] [place] Creatinine and Glomerular filtration rate.predicted panel (S/P/Bld) 56 mL/min/1.73m??? Low >=60 [facility] Comment on above: Order Comment: Fan meade Type: BLOOD SPECIMENOrdering Facility: [facility] Address: [address] [place] [address] Result Comment: Hilda mated Glomerular Filtration Rate [...] #### 2 4321-2, , 2776-11 ####[facility] LABORATORYCLIA [id number] [place] [id number] [place] Glucose [Mass/Vol] 244 mg/dL High 74-99 [facility] Comment on above: Order Comment: Fan meade Type: BLOOD SPECIMENOrdering Facility: [facility] Address: [address] [place] [address] Result Comment: The [place] [employer] (ADA) provides guidance for cutoff [...] Standards of Medical Care in Diabetes 2016, [place] [employer]. Diabetes Care. 2016.39(Suppl 1). Performed By: #### 2 4321-2, , 2776-11 ####[facility] LABORATORYCLIA [id number] [place] [address] [place] Potassium [Moles/Vol] 4.4 mmol/L Normal 3.7-5.1 [facility] Comment on above: Order Comment: Speci men Type: BLOOD SPECIMENOrdering Facility: [facility] Address: [address] [place] [address] Performed By: #### 2 4321-2, , 2776-11 ####[facility] LABORATORYCLIA [id number] [place] [address] [place] Sodium [Moles/Vol] 132 mmol/L Low 136-144 [facility] Comment on above: Order Comment: Speci men Type: BLOOD SPECIMENOrdering Facility: [facility] Address: [address] [place] [address] Performed By: #### 2 4321-2, , 2776-11 ####[facility]ATORYCLIA [id number] [place] [address] [place] Urea nitrogen [Mass/Vol] 37 mg/dL High 7-21 [facility] Comment on above: Order Comment: Speci men Type: BLOOD SPECIMENOrdering Facility: [facility] Address: [address] [place] [address] Performed By: #### 2 4321-2, , 2776-11 ####[facility]ORATORYCLIA [id number] [address] [place] CASE MANAGEMon 11-26-2024 CASE MANAGEM Normal [facility] CBC W Auto Differential pane l (Bld)on 11-26-2024 Basophils (Bld) [#/Vol] 0.04 10*3/uL Normal <0.11 [facility] Comment on above: Order Comment: Speci men Type: BLOOD SPECIMENOrdering Facility: [facility] Address: [address] [place] [address] Performed By: #### 5 7021-8 ####[facility] LABORATORYCLIA [id number] [place] [address] [place] Basophils/100 WBC (Bld) 0.4 % Normal [facility] Comment on above: Order Comment: Speci men Type: BLOOD SPECIMENOrdering Facility: [facility] Address: [address] [place] [address] Performed By: #### 5 7021-8 ####[facility] LABORATORYCLIA [id number] [place] [address] [place] Differential cell count method Nom (Bld) Auto Normal [facility] Comment on above: Order Comment: Speci men Type: BLOOD SPECIMENOrdering Facility: [facility] Address: [address] [place] [address] Performed By: #### 5 7021-8 ####VILLARRE[facility] LABORATORYCLIA [id number] [place] [address] [place] Eosinophils (Bld) [#/Vol] 0.41 10*3/uL Normal <0.46 [facility] Comment on above: Order Comment: Speci men Type: BLOOD SPECIMENOrdering Facility: [facility] Address: [address] [place] [address] Performed By: #### 5 7021-8 ####VILLARRE[facility] LABORATORYCLIA [id number] [address] STATES [facility] Eosinophils/100 WBC (Bld) 3.9 % Normal [facility] Comment on above: Order Comment: Speci men Type: BLOOD SPECIMENOrdering Facility: [facility] Address: [address] [place] [address] Performed By: #### 5 7021-8 ####VILLARRE[facility] LABORATORYCLIA [id number] [place] [address] [place] Erythrocyte distribution width (RBC) [Ratio] 14.9 % Normal 11.5-15.0 [facility] Comment on above: Order Comment: Speci men Type: BLOOD SPECIMENOrdering Facility: [facility] Address: [address] [place] [address] Performed By: #### 5 7021-8 ####VILLARRE[facility] LABORATORYCLIA [id number] [place] [address] [place] Hematocrit (Bld) [Volume fraction] 30.0 % Low 36.0-46.0 [facility] Comment on above: Order Comment: Speci men Type: BLOOD SPECIMENOrdering Facility: [facility] Address: [address] [place] [address] Performed By: #### 5 7021-8 ####VILLARRE[facility] LABORATORYCLIA [id number] [place] [address] [place] Hemoglobin (Bld) [Mass/Vol] 10.1 g/dL Low 11.5-15.5 [facility] Comment on above: Order Comment: Speci men Type: BLOOD SPECIMENOrdering Facility: [facility] Address: [address] [place] [address] Performed By: #### 5 7021-8 ####VILLARRE[facility] LABORATORYCLIA [id number] [place] [address] [place] Immature granulocytes (Bld) [#/Vol] 0.09 10*3/uL Normal <0.10 [facility] Comment on above: Order Comment: Speci men Type: BLOOD SPECIMENOrdering Facility: [facility] Address: [address] [place] [address] Performed By: #### 5 7021-8 ####VILLARRE[facility] LABORATORYCLIA [id number] [place] [address] [place] Immature granulocytes/100 WBC (Bld) 0.9 % Normal [facility] Comment on above: Order Comment: Speci men Type: BLOOD SPECIMENOrdering Facility: [facility] Address: [address] [place] [address] Performed By: #### 5 7021-8 ####VILLARREAL LABORATORYCLIA [id number] [place] [address] [place] Lymphocytes (Bld) [#/Vol] 1.04 10*3/uL Normal 1.00-4.00 [facility] Comment on above: Order Comment: Speci men Type: BLOOD SPECIMENOrdering Facility: [facility] Address: [address] [place] [address] Performed By: #### 5 7021-8 ####VILLARREAL LABORATORYCLIA [id number] [address] [place] Lymphocytes/100 WBC (Bld) 9.9 % Normal [facility] Comment on above: Order Comment: Speci men Type: BLOOD SPECIMENOrdering Facility: [facility] Address: [address] [place] [address] Performed By: #### 5 7021-8 ####VILLARREAL LABORATORYCLIA [id number] [address] [place] MCH (RBC) [Entitic mass] 28.1 pg Normal 26.0-34.0 [facility] Comment on above: Order Comment: Speci men Type: BLOOD SPECIMENOrdering Facility: [facility] Address: [address] [place] [address] Performed By: #### 5 7021-8 ####VILLARRE[facility] LABORATORYCLIA [id number] [address] [place] MCHC (RBC) [Mass/Vol] 33.7 g/dL Normal 30.5-36.0 [facility] Comment on above: Order Comment: Speci men Type: BLOOD SPECIMENOrdering Facility: [facility] Address: [address] [place] [address] Performed By: #### 5 7021-8 ####VILLARRE[facility] LABORATORYCLIA [id number] [address] MCV (RBC) [Entitic vol] 83.3 fL Normal 80.0-100.0 [facility] Comment on above: Order Comment: Speci men Type: BLOOD SPECIMENOrdering Facility: [facility] Address: [address] [place] [address] Performed By: #### 5 7021-8 ####VILLARRE[facility] LABORATORYCLIA [id number] [place] [address] [place] Monocytes (Bld) [#/Vol] 0.93 10*3/uL High <0.87 [facility] Comment on above: Order Comment: Speci men Type: BLOOD SPECIMENOrdering Facility: [facility] Address: [address] [place] [address] Performed By: #### 5 7021-8 ####VILLARRE[facility] LABORATORYCLIA [id number] [place] [address] [place] Monocytes/100 WBC (Bld) 8.9 % Normal [facility] Comment on above: Order Comment: Speci men Type: BLOOD SPECIMENOrdering Facility: [facility] Address: [address] [place] [address] Performed By: #### 5 7021-8 ####VILLAR[facility] LABORATORYCLIA [id number] [place] [address] [place] Neutrophils (Bld) [#/Vol] 7.97 10*3/uL High 1.45-7.50 [facility] Comment on above: Order Comment: Speci men Type: BLOOD SPECIMENOrdering Facility: [facility] Address: [address] [place] [address] Performed By: #### 5 7021-8 ####V[facility] LABORATORYCLIA [id number] [place] [address] [place] Neutrophils/100 WBC (Bld) 76.0 % Normal [facility] Comment on above: Order Comment: Speci men Type: BLOOD SPECIMENOrdering Facility: [facility] Address: [address] [place] [address] Performed By: #### 5 7021-8 ####VILLAR[facility] LABORATORYCLIA [id number] [place] [address] [place] Nucleated RBC (Bld) [#/Vol] 10*3/uL Normal <0.01 [facility] Comment on above: Order Comment: Speci men Type: BLOOD SPECIMENOrdering Facility: [facility] Address: [address] [place] [address] Performed By: #### 5 7021-8 ####VILLAR[facility] LABORATORYCLIA [id number] [place] [address] [place] Nucleated RBC/100 WBC (Bld) [Ratio] 0.0 /100 WBC Normal [facility] Comment on above: Order Comment: Speci men Type: BLOOD SPECIMENOrdering Facility: [facility] Address: [address] [place] [address] Performed By: #### 5 7021-8 ####V[facility]AR[facility] LABORATORYCLIA [id number] [address] [place] Platelet mean volume (Bld) [Entitic vol] 9.0 fL Normal 9.0-12.7 [facility] Comment on above: Order Comment: Fan meade Type: BLOOD SPECIMENOrdering Facility: [facility] Address: [address] [place] [address] Performed By: #### 5 7021-8 ####[facility] LABORATORYCLIA [id number] [place] [address] [place] Platelets (Bld) [#/Vol] 381 10*3/uL Normal 150-400 [facility] Comment on above: Order Comment: Fan meade Type: BLOOD SPECIMENOrdering Facility: [facility] Address: [address] [place] [address] Performed By: #### 5 7021-8 ####[facility] LABORATORYCLIA [id number] [address] [place] RBC (Bld) [#/Vol] 3.60 10*6/uL Low 3.90-5.20 [facility] Comment on above: Order Comment: Fan meade Type: BLOOD SPECIMENOrdering Facility: [facility] Address: [address] [place] [address] Performed By: #### 5 7021-8 ####[facility] LABORATORYCLIA [id number] [address] [place] WBC (Bld) [#/Vol] 10.48 10*3/uL Normal 3.70-11.00 [facility] Comment on above: Order Comment: Fan meade Type: BLOOD SPECIMENOrdering Facility: [facility] Address: [address] [place] [address] Performed By: #### 5 7021-8 ####[facility] LABORATORYCLIA [id number] [address] OF [facility] Arti 11-26-2024 JACINTA Telephone (HEMAST) YUSUF MEDINA ([id number]) 1935 F [address]O Date Time Provider Department 11/26/24 GRUPO MENDEZ During your visit today, we recorded the following information about you: Carlitos Sue 11/26/2024 9:54 AM Signed Spoke w/ pt certified nurses' aide, Demetria. Pt is still inpatient. When she is discharged she will be sent to a rehab and will not be able to make appts. Any time soon. Please advise for further requirements. Grupo Mendez MD 11/26/2024 5:[address] Mendez reviewed labs from [facility]. Dr. Mendez recommended for patient to [...] needed for sedation. - blood sugar diagnostic (ViadeoTOUCH ULTRA TEST) test strip Test blood sugar [...] patient by: CAREGIVER José Miguel Swanson [facility] Problem List As Of Date 11/26/2024 Noted [...] (capsule) sprain (more content not included)... Normal [facility] CONSULT PROGon 11-26-2024 CONSULT PROG [facility] CONSULT PROG [facility] CONSULT PROG [facility] CT ABD/PEL WO IVCONon 2024 CT ABD/PEL WO IVCON Normal [facility] Lipase SerPl-cCncon 11-26-19 25 Lipase [Catalytic activity/Vol] 22 U/L Normal 16-61 [facility] Comment on above: Order Comment: Speci men Type: BLOOD SPECIMENOrdering Facility: [facility] Address: [address] [place] [address] Performed By: #### 3 040-3 ####[facility] LABORATORYCLIA [id number] [place] [id number] [place] Magnesium SerPl-mCncon 11-26 Magnesium [Mass/Vol] 2.0 mg/dL Normal 1.7-2.3 [facility] Comment on above: Order Comment: Speci men Type: BLOOD SPECIMENOrdering Facility: [facility] Address: [address] [place] [address] Performed By: #### 2 4321-2, 13038-9, 2777-1 ####[facility] LABORATORYCLIA [id number] [place] [id number] [place] NURSING [facility] 11-26[facility]20[facility] Phosphate SerPl-mCncon 11-26 Phosphate [Mass/Vol] 3.0 mg/dL Normal 2.7-4.8 [facility] Comment on above: Order Comment: Speci men Type: BLOOD SPECIMENOrdering Facility: [facility] Address: [address] [place] [address] Performed By: #### 2 4321-2, 71282-3, 2777-1 ####[facility] LABORATORYCLIA [id number] [place] [id number] [place] Basic metabolic 2000 panelon 11-25-2024 Anion gap [Moles/Vol] 12 mmol/L Normal 8-15 [facility] Comment on above: Order Comment: Speci men Type: BLOOD SPECIMENOrdering Facility: [facility] Address: [address] [place] [address] Performed By: #### 2 4320-2, ####VILLARRE[facility] LABORATORYCLIA [id number] [place] [address] [place] Calcium [Mass/Vol] 8.9 mg/dL Normal 8.5-10.2 [facility] Comment on above: Order Comment: Speci men Type: BLOOD SPECIMENOrdering Facility: [facility] Address: [facility] [place] [address] Performed By: #### 2 4320-2, ####VILLARRE[facility] LABORATORYCLIA [id number] [place] [address] [place] Chloride [Moles/Vol] 94 mmol/L Low 98-107 [facility] Comment on above: Order Comment: Speci men Type: BLOOD SPECIMENOrdering Facility: [facility] Address: [address] [place] [address] Performed By: #### 2 2, ####VILLARRE[facility] LABORATORYCLIA [id number] [place] [address] [place] CO2 [Moles/Vol] 24 mmol/L Normal 22-30 [facility] Comment on above: Order Comment: Speci men Type: BLOOD SPECIMENOrdering Facility: [facility] Address: [facility] [place] [address] Performed By: #### 2 2, ####VILLARRE[facility] LABORATORYCLIA [id number] [place] [address] [place] Creatinine [Mass/Vol] 0.79 mg/dL Normal 0.58-0.96 [facility] Comment on above: Order Comment: Speci men Type: BLOOD SPECIMENOrdering Facility: [facility] Address: [address] [place] [address] Performed By: #### 2 432-2, ####VILLARRE[facility] LABORATORYCLIA [id number] [place] [address] [place] Creatinine and Glomerular filtration rate.predicted panel (S/P/Bld) 72 mL/min/1.73m??? Normal >=60 [facility] Comment on above: Order Comment: Fan meade Type: BLOOD SPECIMENOrdering Facility: [facility] Address: [address] [place] [address] Result Comment: Hilda mated Glomerular Filtration Rate [...] Performed By: #### 2 4321-2, ####VILLARREAL LABORATORYCLIA [id number] [place] [address] [place] Glucose [Mass/Vol] 251 mg/dL High 74-99 [facility] Comment on above: Order Comment: Fan meade Type: BLOOD SPECIMENOrdering Facility: [facility] Address: [address] [place] [address] Result Comment: The [place] [employer] (ADA) provides guidance for cutoff [...] Standards of Medical Care in Diabetes 2016, [place] [employer]. Diabetes Care. 2016.39(Suppl 1). Performed By: #### 2 4321-2, ####[facility] LABORATORYCLIA [id number] [place] [address] [place] Potassium [Moles/Vol] 3.9 mmol/L Normal 3.7-5.1 [facility] Comment on above: Order Comment: Fan meade Type: BLOOD SPECIMENOrdering Facility: [facility] Address: [address] [place] [address] Performed By: #### 2 4321-2, ####VILLARREAL LABORATORYCLIA [id number] [address] [place] Sodium [Moles/Vol] 130 mmol/L Low 136-144 [facility] Comment on above: Order Comment: Speci men Type: BLOOD SPECIMENOrdering Facility: [facility] Address: [address] [place] [address] Performed By: #### 2 4321-2, ####VILLARRE[facility] LABORATORYCLIA [id number] [address] [place] [facility] Urea nitrogen [Mass/Vol] 32 mg/dL High 7-21 [facility] Comment on above: Order Comment: Speci men Type: BLOOD SPECIMENOrdering Facility: [facility] Address: [address] [place] [address] Performed By: #### 2 432-2, ####VILLARRE[facility] LABORATORYCLIA [id number] [address] CBC W Auto Differential pane l (Bld)on 11-25-2024 Basophils (Bld) [#/Vol] 0.05 10*3/uL Normal <0.11 [facility] Comment on above: Order Comment: Speci men Type: BLOOD SPECIMENOrdering Facility: [facility] Address: [address] [place] [address] Performed By: #### 5 7021-8 ####VILLARRE[facility] LABORATORYCLIA [id number] [address] Basophils/100 WBC (Bld) 0.4 % Normal [facility] Comment on above: Order Comment: Speci men Type: BLOOD SPECIMENOrdering Facility: [facility] Address: [address] [place] [address] Performed By: #### 5 7021-8 ####VILL[facility] LABORATORYCLIA [id number] [address] Differential cell count method Nom (Bld) Auto Normal [facility] Comment on above: Order Comment: Speci men Type: BLOOD SPECIMENOrdering Facility: [facility] Address: [address] [place] [address] Performed By: #### 5 7021-8 ####VILLARRE[facility] LABORATORYCLIA [id number] [place] [address] [place] Eosinophils (Bld) [#/Vol] 0.11 10*3/uL Normal <0.46 [facility] Comment on above: Order Comment: Speci men Type: BLOOD SPECIMENOrdering Facility: [facility] Address: [address] [place] [address] Performed By: #### 5 7021-8 ####VILLARRE[facility] LABORATORYCLIA [id number] [place] [address] [place] Eosinophils/100 WBC (Bld) 0.8 % Normal [facility] Comment on above: Order Comment: Speci men Type: BLOOD SPECIMENOrdering Facility: [facility] Address: [address] [place] [address] Performed By: #### 5 7021-8 ####VILLARRE[facility] LABORATORYCLIA [id number] [address] [place] Erythrocyte distribution width (RBC) [Ratio] 14.9 % Normal 11.5-15.0 [facility] Comment on above: Order Comment: Speci men Type: BLOOD SPECIMENOrdering Facility: [facility] Address: [address] [place] [address] Performed By: #### 5 7021-8 ####VILLARRE[facility] LABORATORYCLIA [id number] [address] [place] Hematocrit (Bld) [Volume fraction] 31.8 % Low 36.0-46.0 [facility] Comment on above: Order Comment: Speci men Type: BLOOD SPECIMENOrdering Facility: [facility] Address: [address] [place] [address] Performed By: #### 5 7021-8 ####VILLARREAL LABORATORYCLIA [id number] [address] [place] Hemoglobin (Bld) [Mass/Vol] 10.5 g/dL Low 11.5-15.5 [facility] Comment on above: Order Comment: Speci men Type: BLOOD SPECIMENOrdering Facility: [facility] Address: [address] [place] [address] Performed By: #### 5 7021-8 ####VILLARREAL LABORATORYCLIA [id number] [address] [place] Immature granulocytes (Bld) [#/Vol] 0.09 10*3/uL Normal <0.10 [facility] Comment on above: Order Comment: Speci men Type: BLOOD SPECIMENOrdering Facility: [facility] Address: [address] [place] [address] Performed By: #### 5 7021-8 ####VILLARRE[facility] LABORATORYCLIA [id number] [address] Immature granulocytes/100 WBC (Bld) 0.6 % Normal [facility] Comment on above: Order Comment: Speci men Type: BLOOD SPECIMENOrdering Facility: [facility] Address: [address] [place] [address] Performed By: #### 5 7021-8 ####VILLARREAL LABORATORYCLIA [id number] [address] [place] [facility] Lymphocytes (Bld) [#/Vol] 1.18 10*3/uL Normal 1.00-4.00 [facility] Comment on above: Order Comment: Speci men Type: BLOOD SPECIMENOrdering Facility: [facility] Address: [address] [place] [address] Performed By: #### 5 7021-8 ####VILLARREAL LABORATORYCLIA [id number] [address] Lymphocytes/100 WBC (Bld) 8.5 % Normal [facility] Comment on above: Order Comment: Speci men Type: BLOOD SPECIMENOrdering Facility: [facility] Address: [address] [place] [address] Performed By: #### 5 7021-8 ####VILLARREAL LABORATORYCLIA [id number] [address] MCH (RBC) [Entitic mass] 27.8 pg Normal 26.0-34.0 [facility] Comment on above: Order Comment: Speci men Type: BLOOD SPECIMENOrdering Facility: [facility] Address: [address] [place] [address] Performed By: #### 5 7021-8 ####VILLARREAL LABORATORYCLIA [id number] [place] [address] [place] MCHC (RBC) [Mass/Vol] 33.0 g/dL Normal 30.5-36.0 [facility] Comment on above: Order Comment: Speci men Type: BLOOD SPECIMENOrdering Facility: [facility] Address: [address] [place] [address] Performed By: #### 5 7021-8 ####VILLARREAL LABORATORYCLIA [id number] [place] [address] [place] MCV (RBC) [Entitic vol] 84.1 fL Normal 80.0-100.0 [facility] Comment on above: Order Comment: Speci men Type: BLOOD SPECIMENOrdering Facility: [facility] Address: [address] [place] [address] Performed By: #### 5 7021-8 ####VILLARREAL LABORATORYCLIA [id number] [place] [address] [place] Monocytes (Bld) [#/Vol] 1.11 10*3/uL High <0.87 [facility] Comment on above: Order Comment: Speci men Type: BLOOD SPECIMENOrdering Facility: [facility] Address: [address] [place] [address] Performed By: #### 5 7021-8 ####VILLARREAL LABORATORYCLIA [id number] [place] [address] [place] Monocytes/100 WBC (Bld) 8.0 % Normal [facility] Comment on above: Order Comment: Speci men Type: BLOOD SPECIMENOrdering Facility: [facility] Address: [address] [place] [address] Performed By: #### 5 7021-8 ####VILLARREAL LABORATORYCLIA [id number] [place] [address] [place] Neutrophils (Bld) [#/Vol] 11.41 10*3/uL High 1.45-7.50 [facility] Comment on above: Order Comment: Speci men Type: BLOOD SPECIMENOrdering Facility: [facility] Address: [address] [place] [address] Performed By: #### 5 7021-8 ####VILLARREAL LABORATORYCLIA [id number] [place] [address] [place] Neutrophils/100 WBC (Bld) 81.7 % Normal [facility] Comment on above: Order Comment: Speci men Type: BLOOD SPECIMENOrdering Facility: [facility] Address: [address] [place] [address] Performed By: #### 5 7021-8 ####VILLARREAL LABORATORYCLIA [id number] [place] [address] [place] Nucleated RBC (Bld) [#/Vol] 10*3/uL Normal <0.01 [facility] Comment on above: Order Comment: Speci men Type: BLOOD SPECIMENOrdering Facility: [facility] Address: [address] [place] [address] Performed By: #### 5 7021-8 ####VILLARREAL LABORATORYCLIA [id number] [place] [address] [place] Nucleated RBC/100 WBC (Bld) [Ratio] 0.0 /100 WBC Normal [facility] Comment on above: Order Comment: Speci men Type: BLOOD SPECIMENOrdering Facility: [facility] Address: [address] [place] [address] Performed By: #### 5 7021-8 ####VILLARREAL LABORATORYCLIA [id number] [place] [address] [place] Platelet mean volume (Bld) [Entitic vol] 9.4 fL Normal 9.0-12.7 [facility] Comment on above: Order Comment: Speci men Type: BLOOD SPECIMENOrdering Facility: [facility] Address: [address] [place] [address] Performed By: #### 5 7021-8 ####VILLARREAL LABORATORYCLIA [id number] [place] [address] [place] Platelets (Bld) [#/Vol] 358 10*3/uL Normal 150-400 [facility] Comment on above: Order Comment: Speci men Type: BLOOD SPECIMENOrdering Facility: [facility] Address: [address] [place] [place] [id number] Performed By: #### 5 7021-8 ####VILLARREAL LABORATORYCLIA [id number] [address] RBC (Bld) [#/Vol] 3.78 10*6/uL Low 3.90-5.20 [facility] Comment on above: Order Comment: Speci men Type: BLOOD SPECIMENOrdering Facility: [facility] Address: [address] [place] [address] Performed By: #### 5 7021-8 ####VILLARREAL LABORATORYCLIA [id number] [place] [id number] [facility] WBC (Bld) [#/Vol] 13.95 10*3/uL High 3.70-11.00 [facility] Comment on above: Order Comment: Speci men Type: BLOOD SPECIMENOrdering Facility: [facility] Address: [address] [place] [address] Performed By: #### 5 7021-8 ####VILLARREAL LABORATORYCLIA [id number] [address] CONSULT PROGon 11-25-2024 CONSULT PROG Normal [facility] CONSULT PROG Normal [facility] Magnesium SerPl-mCncon 11-25 Magnesium [Mass/Vol] 1.1 mg/dL Low 1.7-2.3 [facility] Comment on above: Order Comment: Speci men Type: BLOOD SPECIMENOrdering Facility: [facility] Address: [address] [place], [place] [address] Performed By: #### 2 4321-2, 23048-4 ####VILLARREAL LABORATORYCLIA [id number] [place] [id number] [facility] Basic metabolic 2000 panelon 11-24-2024 Anion gap [Moles/Vol] 14 mmol/L Normal 8-15 [facility] Comment on above: Order Comment: Speci men Type: BLOOD SPECIMENOrdering Facility: [facility] Address: [address] [place] [address] Performed By: #### 2 4321-2 ####VILLARREAL LABORATORYCLIA [id number] [place] [address] [place] Calcium [Mass/Vol] 8.8 mg/dL Normal 8.5-10.2 [facility] Comment on above: Order Comment: Speci men Type: BLOOD SPECIMENOrdering Facility: [facility] Address: [address] [place] [address] Performed By: #### 2 4321-2 ####VILLARREAL LABORATORYCLIA [id number] [place] [address] [place] Chloride [Moles/Vol] 95 mmol/L Low 98-107 [facility] Comment on above: Order Comment: Speci men Type: BLOOD SPECIMENOrdering Facility: [facility] Address: [address] [place], [place] [address] Performed By: #### 2 4321-2 ####[facility] LABORATORYCLIA [id number] [place] [address] [place] CO2 [Moles/Vol] 24 mmol/L Normal 22-30 [facility] Comment on above: Order Comment: Speci men Type: BLOOD SPECIMENOrdering Facility: [facility] Address: [address] [place] [address] Performed By: #### 2 4321-2 ####VILLARREAL LABORATORYCLIA [id number] [address] [place] Creatinine [Mass/Vol] 0.92 mg/dL Normal 0.58-0.96 [facility] Comment on above: Order Comment: Speci men Type: BLOOD SPECIMENOrdering Facility: [facility] Address: [address] [place] [address] Performed By: #### 2 4321-2 ####VILLARREAL LABORATORYCLIA [id number] [address] Creatinine and Glomerular filtration rate.predicted panel (S/P/Bld) 60 mL/min/1.73m??? Normal >=60 [facility] Comment on above: Order Comment: Speci men Type: BLOOD SPECIMENOrdering Facility: [facility] Address: [address] [place] [address] Result Comment: Hilda mated Glomerular Filtration Rate [...] actual GFR. Performed By: #### 2 4321-2 ####[facility] LABORATORYCLIA [id number] [place] [id number] [place] Glucose [Mass/Vol] 202 mg/dL High 74-99 [facility] Comment on above: Order Comment: Fan men Type: BLOOD SPECIMENOrdering Facility: [facility] Address: [address] [place] [address] Result Comment: The [place] Diabetes Association (ADA) provides guidance for cutoff [...] Standards of Medical Care in Diabetes 2016, [place] [employer]. Diabetes Care. 2016.39(Suppl 1). Performed By: #### 2 4321-2 ####[facility] LABORATORYCLIA [id number] [place] [id number] [place] Potassium [Moles/Vol] 4.0 mmol/L Normal 3.7-5.1 [facility] Comment on above: Order Comment: Katei men Type: BLOOD SPECIMENOrdering Facility: [facility] Address: [address] [place] [id number] Performed By: #### 2 4321-2 ####VILLARREAL LABORATORYCLIA [id number] [place] [address] [place] Sodium [Moles/Vol] 133 mmol/L Low 136-144 [facility] Comment on above: Order Comment: Speci men Type: BLOOD SPECIMENOrdering Facility: [facility] Address: [address] [place] [address] Performed By: #### 2 4321-2 ####VILLARREAL LABORATORYCLIA [id number] [address] STATES [facility] Urea nitrogen [Mass/Vol] 39 mg/dL High 7-21 [facility] Comment on above: Order Comment: Speci men Type: BLOOD SPECIMENOrdering Facility: [facility] Address: [address] [place] [address] Performed By: #### 2 4321-2 ####VILLARREAL LABORATORYCLIA [id number] [address] [place] CBC panel Auto (Bld)on 11-24 Erythrocyte distribution width (RBC) [Ratio] 15.2 % High 11.5-15.0 [facility] Comment on above: Order Comment: Speci men Type: BLOOD SPECIMENOrdering Facility: [facility] Address: [address] [place] [address] Performed By: #### 5 8410-2 ####VILLARREAL LABORATORYCLIA [id number] [address] Hematocrit (Bld) [Volume fraction] 29.3 % Low 36.0-46.0 [facility] Comment on above: Order Comment: Speci men Type: BLOOD SPECIMENOrdering Facility: [facility] Address: [address] [place] [address] Performed By: #### 5 8410-2 ####VILLARREAL LABORATORYCLIA [id number] [address] STATES [facility] Hemoglobin (Bld) [Mass/Vol] 9.7 g/dL Low 11.5-15.5 [facility] Comment on above: Order Comment: Speci men Type: BLOOD SPECIMENOrdering Facility: [facility] Address: [address] [place] [address] Performed By: #### 5 8410-2 ####VILLARREAL LABORATORYCLIA [id number] [address] [place] MCH (RBC) [Entitic mass] 27.8 pg Normal 26.0-34.0 [facility] Comment on above: Order Comment: Speci men Type: BLOOD SPECIMENOrdering Facility: [facility] Address: [address] [place] [address] Performed By: #### 5 8410-2 ####VILLARREAL LABORATORYCLIA [id number] [place] [address] [place] MCHC (RBC) [Mass/Vol] 33.1 g/dL Normal 30.5-36.0 [facility] Comment on above: Order Comment: Speci men Type: BLOOD SPECIMENOrdering Facility: [facility] Address: [address] [place] [address] Performed By: #### 5 8410-2 ####VILLARRE[facility] LABORATORYCLIA [id number] [address] [place] MCV (RBC) [Entitic vol] 84.0 fL Normal 80.0-100.0 [facility] Comment on above: Order Comment: Speci men Type: BLOOD SPECIMENOrdering Facility: [facility] Address: [address] [place] [address] Performed By: #### 5 8410-2 ####VILLARRE[facility] LABORATORYCLIA [id number] [address] [place] Nucleated RBC (Bld) [#/Vol] 10*3/uL Normal <0.01 [facility] Comment on above: Order Comment: Speci men Type: BLOOD SPECIMENOrdering Facility: [facility] Address: [address] [place] [address] Performed By: #### 5 8410-2 ####V[facility]ARRE[facility] LABORATORYCLIA [id number] [address] [place] Platelet mean volume (Bld) [Entitic vol] 9.5 fL Normal 9.0-12.7 [facility] Comment on above: Order Comment: Speci men Type: BLOOD SPECIMENOrdering Facility: [facility] Address: [address] [place] [address] Performed By: #### 5 8410-2 ####VILLARREAL LABORATORYCLIA [id number] [place] [address] [facility] [place] Platelets (Bld) [#/Vol] 338 10*3/uL Normal 150-400 [facility] Comment on above: Order Comment: Speci men Type: BLOOD SPECIMENOrdering Facility: [facility] Address: [address] [place] [address] Performed By: #### 5 8410-2 ####VILLARRE[facility] LABORATORYCLIA [id number] [place] [address] [place] RBC (Bld) [#/Vol] 3.49 10*6/uL Low 3.90-5.20 [facility] Comment on above: Order Comment: Speci men Type: BLOOD SPECIMENOrdering Facility: [facility] Address: [address] [place] [address] Performed By: #### 5 8410-2 ####VILLARRE[facility] LABORATORYCLIA [id number] [address] [place] WBC (Bld) [#/Vol] 12.48 10*3/uL High 3.70-11.00 [facility] Comment on above: Order Comment: Speci men Type: BLOOD SPECIMENOrdering Facility: [facility] Address: [address] [place] [address] Performed By: #### 5 8410-2 ####[facility] LABORATORYCLIA [id number] [address] [place] CONSULTon 11-24-2024 CONSULT Normal [facility] CONSULT PROGon 11-24-2024 CONSULT PROG [facility] CONSULT PROG [facility] Vancomycin [place] SerPl-mCncon 11-24-2024 Vancomycin random [Mass/Vol] 11.6 ug/mL Normal 10.0-20.0 [facility] Comment on above: Order Comment: Speci men Type: BLOOD SPECIMENOrdering Facility: [facility] Address: [address] [place] [address] Result Comment: Refe rence ranges and high/low indicator flags are provided as general guidelines only. The treating physician must determine appropriate target levels/dosing based on the specific clinical situation. Performed By: #### 4 091-5 ####VILLARREAL LABORATORYCLIA [id number] [place] [address] [place] Basic metabolic 2000 panelon 11-23-2024 Anion gap [Moles/Vol] 14 mmol/L Normal 8-15 [facility] Comment on above: Order Comment: Speci men Type: BLOOD SPECIMENOrdering Facility: [facility] Address: [address] [place] [address] Performed By: #### 2 4321-2 ####VILLARRE[facility] LABORATORYCLIA [id number] [place] [address] [place] Calcium [Mass/Vol] 8.7 mg/dL Normal 8.5-10.2 [facility] Comment on above: Order Comment: Speci men Type: BLOOD SPECIMENOrdering Facility: [facility] Address: [address] [place] [address] Performed By: #### 2 4321-2 ####VILLARREAL LABORATORYCLIA [id number] [place] [address] [place] Chloride [Moles/Vol] 98 mmol/L Normal 98-107 [facility] Comment on above: Order Comment: Speci men Type: BLOOD SPECIMENOrdering Facility: [facility] Address: [address] [place] [address] Performed By: #### 2 4321-2 ####VILLARREAL LABORATORYCLIA [id number] [place] [address] [place] CO2 [Moles/Vol] 24 mmol/L Normal 22-30 [facility] Comment on above: Order Comment: Speci men Type: BLOOD SPECIMENOrdering Facility: [facility] Address: [address] [place] [address] Performed By: #### 2 4321-2 ####VILLARREAL LABORATORYCLIA [id number] [place] [address] [place] Creatinine [Mass/Vol] 0.96 mg/dL Normal 0.58-0.96 [facility] Comment on above: Order Comment: Speci men Type: BLOOD SPECIMENOrdering Facility: [facility] Address: [address] [place] [address] Performed By: #### 2 4321-2 ####VILLARREAL LABORATORYCLIA [id number] [place] [address] [place] Creatinine and Glomerular filtration rate.predicted panel (S/P/Bld) 57 mL/min/1.73m??? Low >=60 [facility] Comment on above: Order Comment: Fan meade Type: BLOOD SPECIMENOrdering Facility: [facility] Address: [address] [place] [address] Result Comment: Hilda mated Glomerular Filtration Rate [...] Performed By: #### 2 4321-2 ####VILLARRE[facility] LABORATORYCLIA [id number] [place] [address] [place] Glucose [Mass/Vol] 193 mg/dL High 74-99 [facility] Comment on above: Order Comment: Fan meade Type: BLOOD SPECIMENOrdering Facility: [facility] Address: [address] [place] [address] Result Comment: The [place] Diabetes Association (ADA) provides guidance for cutoff [...] Standards of Medical Care in Diabetes 2016, [place] [employer]. Diabetes Care. 2016.39(Suppl 1). Performed By: #### 2 4321-2 ####VILLARREAL LABORATORYCLIA [id number] [place] [address] [place] Potassium [Moles/Vol] 4.1 mmol/L Normal 3.7-5.1 [facility] Comment on above: Order Comment: Speci men Type: BLOOD SPECIMENOrdering Facility: [facility] Address: [address] [place] [address] Performed By: #### 2 4321-2 ####VILLARREAL LABORATORYCLIA [id number] [address] Sodium [Moles/Vol] 136 mmol/L Normal 136-144 [facility] Comment on above: Order Comment: Speci men Type: BLOOD SPECIMENOrdering Facility: [facility] Address: [address] [place] [address] Performed By: #### 2 4321-2 ####VILLARREAL LABORATORYCLIA [id number] [address] STATES [facility] Urea nitrogen [Mass/Vol] 31 mg/dL High 7-21 [facility] Comment on above: Order Comment: Speci men Type: BLOOD SPECIMENOrdering Facility: [facility] Address: [address] [place] [address] Performed By: #### 2 4321-2 ####VILLARREAL LABORATORYCLIA [id number] [address] OF [facility] CASE MANAGEMon 11-23-2024 CASE MANAGEM Normal [facility] CBC panel Auto (Bld)on 11-23 Erythrocyte distribution width (RBC) [Ratio] 15.1 % High 11.5-15.0 [facility] Comment on above: Order Comment: Speci men Type: BLOOD SPECIMENOrdering Facility: [facility] Address: [address] [place] [address] Performed By: #### 5 8410-2 ####VILLARRE[facility] LABORATORYCLIA [id number] [address] Hematocrit (Bld) [Volume fraction] 30.5 % Low 36.0-46.0 [facility] Comment on above: Order Comment: Speci men Type: BLOOD SPECIMENOrdering Facility: [facility] Address: [address] [place] [address] Performed By: #### 5 8410-2 ####VILLARREAL LABORATORYCLIA [id number] [place] [address] [place] Hemoglobin (Bld) [Mass/Vol] 10.2 g/dL Low 11.5-15.5 [facility] Comment on above: Order Comment: Speci men Type: BLOOD SPECIMENOrdering Facility: [facility] Address: [address] [place] [address] Performed By: #### 5 8410-2 ####VILLARREAL LABORATORYCLIA [id number] [address] MCH (RBC) [Entitic mass] 28.2 pg Normal 26.0-34.0 [facility] Comment on above: Order Comment: Speci men Type: BLOOD SPECIMENOrdering Facility: [facility] Address: [address] [place] [address] Performed By: #### 5 8410-2 ####VILLARREAL LABORATORYCLIA [id number] [address] MCHC (RBC) [Mass/Vol] 33.4 g/dL Normal 30.5-36.0 [facility] Comment on above: Order Comment: Speci men Type: BLOOD SPECIMENOrdering Facility: [facility] Address: [address] [place] [address] Performed By: #### 5 8410-2 ####VILLARREAL LABORATORYCLIA [id number] [address] MCV (RBC) [Entitic vol] 84.3 fL Normal 80.0-100.0 [facility] Comment on above: Order Comment: Speci men Type: BLOOD SPECIMENOrdering Facility: [facility] Address: [address] [place] [address] Performed By: #### 5 8410-2 ####VILLARRE[facility] LABORATORYCLIA [id number] [address] Nucleated RBC (Bld) [#/Vol] 10*3/uL Normal <0.01 [facility] Comment on above: Order Comment: Speci men Type: BLOOD SPECIMENOrdering Facility: [facility] Address: [address] [place] [address] Performed By: #### 5 8410-2 ####VILLARREAL LABORATORYCLIA [id number] [place] [address] [place] Platelet mean volume (Bld) [Entitic vol] 9.5 fL Normal 9.0-12.7 [facility] Comment on above: Order Comment: Speci men Type: BLOOD SPECIMENOrdering Facility: [facility] Address: [address] [place] [address] Performed By: #### 5 8410-2 ####[facility] LABORATORYCLIA [id number] [place] [address] [place] Platelets (Bld) [#/Vol] 338 10*3/uL Normal 150-400 [facility] Comment on above: Order Comment: Speci men Type: BLOOD SPECIMENOrdering Facility: [facility] Address: [address] [place] [address] Performed By: #### 5 8410-2 ####[facility] LABORATORYCLIA [id number] [place] [address] [place] RBC (Bld) [#/Vol] 3.62 10*6/uL Low 3.90-5.20 [facility] Comment on above: Order Comment: Speci men Type: BLOOD SPECIMENOrdering Facility: [facility] Address: [address] [place] [address] Performed By: #### 5 8410-2 ####[facility] LABORATORYCLIA [id number] [address] [place] WBC (Bld) [#/Vol] 15.48 10*3/uL High 3.70-11.00 [facility] Comment on above: Order Comment: Speci men Type: BLOOD SPECIMENOrdering Facility: [facility] Address: [address] [place] [address] Performed By: #### 5 8410-2 ####[facility] LABORATORYCLIA [id number] [address] [place] CONSULT PROGon 11-23-2024 CONSULT PROG Normal [facility] THERAPY NTon 11-23-2024 THERAPY NT Normal [facility] THERAPY NT Normal [facility] Bacteria Spec Anaerobe Culto n 11-22-2024 Bacteria identified Anaer cx Nom (Unsp spec) Negative Normal [facility] Comment on above: Performed By: #### 6 462-6, 635-3 ####[facility] LABCLIA [id number] [place] [address] [place] Bacteria Wnd Culton 11-22-19 25 Bacteria identified Cx Nom (Wound) ORGANISM ID: 1 Many Staphylococcus aureus Refer to specimen collected on 11/21/2024 at 10:34 PM [[id number]] GRAM STAIN: Rare Gram positive cocci Rare Polymorphonuclear leukocytes Abnormal [facility] Comment on above: Performed By: #### 6 462-6, 635-3 ####[facility] LABCLIA [id number] [place] [address] [place] Basic metabolic 2000 panelon 11-22-2024 Anion gap [Moles/Vol] 11 mmol/L Normal 8-15 [facility] Comment on above: Order Comment: Speci men Type: BLOOD SPECIMENOrdering Facility: [facility] Address: [address] [place] [address] Performed By: #### 2 4321-2 ####[facility] LABORATORYCLIA [id number] [place] [address] [place] Calcium [Mass/Vol] 8.2 mg/dL Low 8.5-10.2 [facility] Comment on above: Order Comment: Speci men Type: BLOOD SPECIMENOrdering Facility: [facility] Address: [address] [place] [address] Performed By: #### 2 4321-2 ####[facility] LABORATORYCLIA [id number] [place] [address] [place] Chloride [Moles/Vol] 97 mmol/L Low 98-107 [facility] Comment on above: Order Comment: Speci men Type: BLOOD SPECIMENOrdering Facility: [facility] Address: [address] [place] [address] Performed By: #### 2 4321-2 ####[facility] LABORATORYCLIA [id number] [place] [address] [place] CO2 [Moles/Vol] 25 mmol/L Normal 22-30 [facility] Comment on above: Order Comment: Fan meade Type: BLOOD SPECIMENOrdering Facility: [facility] Address: [address] [place] [address] Performed By: #### 2 4321-2 ####VILLARRE[facility] LABORATORYCLIA [id number] [address] STATES OF [facility] Creatinine [Mass/Vol] 0.89 mg/dL Normal 0.58-0.96 [facility] Comment on above: Order Comment: Fan meade Type: BLOOD SPECIMENOrdering Facility: [facility] Address: [address] [place] [address] Performed By: #### 2 4321-2 ####[facility] LABORATORYCLIA [id number] [address] Creatinine and Glomerular filtration rate.predicted panel (S/P/Bld) 62 mL/min/1.73m??? Normal >=60 [facility] Comment on above: Order Comment: Fan meade Type: BLOOD SPECIMENOrdering Facility: [facility] Address: [address] [place] [address] Result Comment: Hilda mated Glomerular Filtration Rate [...] Performed By: #### 2 4321-2 ####VILL[facility] LABORATORYCLIA [id number] [address] [place] Glucose [Mass/Vol] 291 mg/dL High 74-99 [facility] Comment on above: Order Comment: Kateleroy meade Type: BLOOD SPECIMENOrdering Facility: [facility] Address: [address] [place] [address] Result Comment: The [place] Diabetes Association (ADA) provides guidance for cutoff [...] Standards of Medical Care in Diabetes 2016, [place] [employer]. Diabetes Care. 2016.39(Suppl 1). Performed By: #### 2 4321-2 ####VILL[facility] LABORATORYCLIA [id number] [address] [place] Potassium [Moles/Vol] 4.1 mmol/L Normal 3.7-5.1 [facility] Comment on above: Order Comment: Fan meade Type: BLOOD SPECIMENOrdering Facility: [facility] Address: [address] [place] [address] Performed By: #### 2 4321-2 ####VILLAR[facility] LABORATORYCLIA [id number] [address] [place] Sodium [Moles/Vol] 133 mmol/L Low 136-144 [facility] Comment on above: Order Comment: Fan meade Type: BLOOD SPECIMENOrdering Facility: [facility] Address: [address] [place] [address] Performed By: #### 2 4321-2 ####VILL[facility] LABORATORYCLIA [id number] [address] [place] Urea nitrogen [Mass/Vol] 30 mg/dL High 7-21 [facility] Comment on above: Order Comment: Fan meade Type: BLOOD SPECIMENOrdering Facility: [facility] Address: [address] [place] [address] Performed By: #### 2 4321-2 ####VILLARRE[facility] LABORATORYCLIA [id number] [place] [id number] [place] CASE MGT INIT ASSESon 2024 [facility] CBC panel Auto (Bld)on 11-22 Erythrocyte distribution width (RBC) [Ratio] 15.2 % High 11.5-15.0 [facility] Comment on above: Order Comment: Speci men Type: BLOOD SPECIMENOrdering Facility: [facility] Address: [address] [place] [address] Performed By: #### 5 8410-2 ####V[facility] LABORATORYCLIA [id number] [address] Hematocrit (Bld) [Volume fraction] 28.5 % Low 36.0-46.0 [facility] Comment on above: Order Comment: Speci men Type: BLOOD SPECIMENOrdering Facility: [facility] Address: [address] [place] [address] Performed By: #### 5 8410-2 ####[facility] LABORATORYCLIA [id number] [address] Hemoglobin (Bld) [Mass/Vol] 9.3 g/dL Low 11.5-15.5 [facility] Comment on above: Order Comment: Speci men Type: BLOOD SPECIMENOrdering Facility: [facility] Address: [address] [place] [address] Performed By: #### 5 8410-2 ####[facility] LABORATORYCLIA [id number] [address] MCH (RBC) [Entitic mass] 27.8 pg Normal 26.0-34.0 [facility] Comment on above: Order Comment: Speci men Type: BLOOD SPECIMENOrdering Facility: [facility] Address: [address] [place] [address] Performed By: #### 5 8410-2 ####[facility] LABORATORYCLIA [id number] [address] MCHC (RBC) [Mass/Vol] 32.6 g/dL Normal 30.5-36.0 [facility] Comment on above: Order Comment: Speci men Type: BLOOD SPECIMENOrdering Facility: [facility] Address: [address] [place] [address] Performed By: #### 5 8410-2 ####[facility] LABORATORYCLIA [id number] [address] MCV (RBC) [Entitic vol] 85.3 fL Normal 80.0-100.0 [facility] Comment on above: Order Comment: Speci men Type: BLOOD SPECIMENOrdering Facility: [facility] Address: [address] [place] [address] Performed By: #### 5 8410-2 ####V[facility] LABORATORYCLIA [id number] [place] [address] [place] Nucleated RBC (Bld) [#/Vol] 10*3/uL Normal <0.01 [facility] Comment on above: Order Comment: Speci men Type: BLOOD SPECIMENOrdering Facility: [facility] Address: [address] [place] [address] Performed By: #### 5 8410-2 ####V[facility] LABORATORYCLIA [id number] [address] [place] Platelet mean volume (Bld) [Entitic vol] 9.5 fL Normal 9.0-12.7 [facility] Comment on above: Order Comment: Speci men Type: BLOOD SPECIMENOrdering Facility: [facility] Address: [address] [place] [address] Performed By: #### 5 8410-2 ####[facility] LABORATORYCLIA [id number] [address] [place] Platelets (Bld) [#/Vol] 294 10*3/uL Normal 150-400 [facility] Comment on above: Order Comment: Speci men Type: BLOOD SPECIMENOrdering Facility: [facility] Address: [address] [place] [address] Performed By: #### 5 8410-2 ####VILL[facility] LABORATORYCLIA [id number] [place] [address] [place] RBC (Bld) [#/Vol] 3.34 10*6/uL Low 3.90-5.20 [facility] Comment on above: Order Comment: Speci men Type: BLOOD SPECIMENOrdering Facility: [facility] Address: [address] [place] [address] Performed By: #### 5 8410-2 ####VILL[facility] LABORATORYCLIA [id number] [place] [address] [place] WBC (Bld) [#/Vol] 15.66 10*3/uL High 3.70-11.00 [facility] Comment on above: Order Comment: Speci men Type: BLOOD SPECIMENOrdering Facility: [facility] Address: [address] [place] [address] Performed By: #### 5 8410-2 ####[facility] LABORATORYCLIA [id number] [address] [place] CONSULTon 11-22-2024 CONSULT Normal [facility] CONSULT PROGon 11-22-2024 CONSULT PROG [facility] ESR Westergren method (Bld) [Velocity]on 11-22-2024 ESR (Bld) [Velocity] 40 mm/h High 0-20 [facility] Comment on above: Order Comment: Speci men Type: BLOOD SPECIMENOrdering Facility: [facility] Address: [address] [place] [address] Performed By: #### 4 [id number] ####[facility] LABCLIA [id number] [address] [place] HISTORY PHYSICALon HISTORY PHYSICAL Normal [facility] NUTRITIONon 11-22-2024 NUTRITION Normal [facility] SEPSIS LACTATE W/ REFLEX (SE COND)on 11-22-2024 Lactate [Moles/Vol] 1.9 mmol/L Normal 0.5-2.0 [facility] Comment on above: Order Comment: Speci men Type: BLOOD SPECIMENOrdering Facility: [facility] Address: [address] [place] [address] Performed By: #### S LACT2 ####[facility]ORY[facility] [id number] [place] [id number] [place] US ANKLE BRACHIAL INDICESon 11-22-2024 [place] ANKLE BRACHIAL INDICES Normal [facility] Bacteria Bld Culton 11-21-19 25 Bacteria identified Cx Nom (Bld) CULTURE, BLOOD: No growth 5 days Normal [facility] Comment on above: Performed By: #### 6 00-7 ####[facility] LABCLIA [id number] [place] [address] [place] Bacteria identified Cx Nom (Bld) ORGANISM ID: 1 Gram positive diphtheroid-like bacilli Probable contaminant. Susceptibility testing will not be performed. Call lab within 72 hours to initiate workup if clinically indicated. GRAM STAIN: Gram positive bacilli Abnormal [facility] Comment on above: Performed By: #### 6 00-7 ####[facility] LABCLIA [id number] [place] [address] [place] Bacteria Wnd Culton 11-21-19 25 Bacteria identified Cx Nom (Wound) Abnormal [facility] Comment on above: Performed By: #### 6 462-6 ####[facility] LABCLIA [id number] [place] [address] [place] CBC W Auto Differential pane l (Bld)on 11-21-2024 Basophils (Bld) [#/Vol] 0.04 10*3/uL Normal <0.11 [facility] Comment on above: Order Comment: Speci men Type: BLOOD SPECIMENOrdering Facility: [facility] Address: [address] [place] [address] Performed By: #### 5 5454-3 ####[facility] LABCLIA [id number] [address] [place]#### 48375-3 ####[facility] [id number] [address] [place] Basophils/100 WBC (Bld) 0.2 % Normal [facility] Comment on above: Order Comment: Speci men Type: BLOOD SPECIMENOrdering Facility: [facility] Address: [address] [place] [address] Performed By: #### 5 5454-3 ####[facility] LABCLIA [id number] [place] [address] [place]#### 31220-8 ####[facility]ORY[facility] [id number] [place] [address] [place] Differential cell count method Nom (Bld) Auto Normal [facility] Comment on above: Order Comment: Speci men Type: BLOOD SPECIMENOrdering Facility: [facility] Address: [address] [place] [address] Performed By: #### 5 5454-3 ####[facility] LABCLIA [id number] [place] [address] [place]#### 49544-4 ####[facility] [id number] [place] [address] [place] Eosinophils (Bld) [#/Vol] 10*3/uL Normal <0.46 [facility] Comment on above: Order Comment: Speci men Type: BLOOD SPECIMENOrdering Facility: [facility] Address: [address] [place] [address] Performed By: #### 5 5454-3 ####[facility] LABCLIA [id number] [place] [address] [place]#### 83401-4 ####[facility]ORY[facility] [id number] [place] [address] [place] Eosinophils/100 WBC (Bld) 0.0 % Normal [facility] Comment on above: Order Comment: Speci men Type: BLOOD SPECIMENOrdering Facility: [facility] Address: [address] [place] [address] Performed By: #### 5 5454-3 ####[facility] LABCLIA [id number] [place] [address] [place]#### 50569-6 ####[facility]ORYCLIA [id number] [place] [address] [place] Erythrocyte distribution width (RBC) [Ratio] 15.0 % Normal 11.5-15.0 [facility] Comment on above: Order Comment: Speci men Type: BLOOD SPECIMENOrdering Facility: [facility] Address: [address] [place] [address] Performed By: #### 5 5454-3 ####[facility] LABCLIA [id number] [place] [address] [place]#### 77081-7 ####[facility]ORY[facility]IA [id number] [place] [address] [place] Hematocrit (Bld) [Volume fraction] 32.3 % Low 36.0-46.0 [facility] Comment on above: Order Comment: Speci men Type: BLOOD SPECIMENOrdering Facility: [facility] Address: [address] [place] [address] Performed By: #### 5 5454-3 ####[facility] LABCLIA [id number] [place] [address] [place]#### 07799-5 ####[facility]ORYCLIA [id number] [place] [address] [place] Hemoglobin (Bld) [Mass/Vol] 10.9 g/dL Low 11.5-15.5 [facility] Comment on above: Order Comment: Speci men Type: BLOOD SPECIMENOrdering Facility: [facility] Address: [address] [place] [address] Performed By: #### 5 5454-3 ####[facility] LABCLIA [id number] [place] [address] [place]#### 92784-6 ####[facility]ORYCLIA [id number] [address] [place] Immature granulocytes (Bld) [#/Vol] 0.13 10*3/uL High <0.10 [facility] Comment on above: Order Comment: Speci men Type: BLOOD SPECIMENOrdering Facility: [facility] Address: [address] [place] [address] Performed By: #### 5 5454-3 ####[facility] LABCLIA [id number] [place] [address] [place]#### 44901-6 ####[facility]ORYCLIA [id number] [address] Immature granulocytes/100 WBC (Bld) 0.7 % Normal [facility] Comment on above: Order Comment: Speci men Type: BLOOD SPECIMENOrdering Facility: [facility] Address: [address] [place] [address] Performed By: #### 5 5454-3 ####[facility] LABCLIA [id number] [address] [place]#### 54941-0 ####[facility] [id number] [place] [address] [place] Lymphocytes (Bld) [#/Vol] 0.76 10*3/uL Low 1.00-4.00 [facility] Comment on above: Order Comment: Speci men Type: BLOOD SPECIMENOrdering Facility: [facility] Address: [address] [place] [address] Performed By: #### 5 5454-3 ####[facility] LABCLIA [id number] [address] [place]#### 11262-1 ####[facility] [id number] [address] [place] [facility] Lymphocytes/100 WBC (Bld) 3.8 % Normal [facility] Comment on above: Order Comment: Speci men Type: BLOOD SPECIMENOrdering Facility: [facility] Address: [address] [place] [address] Performed By: #### 5 5454-3 ####[facility] LABCLIA [id number] [place] [address] [place]#### 94297-1 ####[facility]ORYCLIA [id number] [place] [address] [place] MCH (RBC) [Entitic mass] 28.5 pg Normal 26.0-34.0 [facility] Comment on above: Order Comment: Speci men Type: BLOOD SPECIMENOrdering Facility: [facility] Address: [address] [place] [address] Performed By: #### 5 5454-3 ####[facility] LABCLIA [id number] [place] [address] [place]#### 81055-4 ####[facility]ORYCLIA [id number] [place] [address] [place] MCHC (RBC) [Mass/Vol] 33.7 g/dL Normal 30.5-36.0 [facility] Comment on above: Order Comment: Speci men Type: BLOOD SPECIMENOrdering Facility: [facility] Address: [address] [place] [address] Performed By: #### 5 5454-3 ####[facility] LABCLIA [id number] [place] [address] [place]#### 24783-7 ####[facility]ORY[facility] [id number] [place] [address] [place] MCV (RBC) [Entitic vol] 84.3 fL Normal 80.0-100.0 [facility] Comment on above: Order Comment: Speci men Type: BLOOD SPECIMENOrdering Facility: [facility] Address: [address] [place] [address] Performed By: #### 5 5454-3 ####[facility] LABCLIA [id number] [place] [address] [place]#### 20119-4 ####[facility] [id number] [place] [address] [place] Monocytes (Bld) [#/Vol] 0.94 10*3/uL High <0.87 [facility] Comment on above: Order Comment: Speci men Type: BLOOD SPECIMENOrdering Facility: [facility] Address: [address] [place] [address] Performed By: #### 5 5454-3 ####[facility] LABCLIA [id number] [place] [address] [place]#### 19272-4 ####[facility]ORYCLIA [id number] [address] Monocytes/100 WBC (Bld) 4.7 % Normal [facility] Comment on above: Order Comment: Speci men Type: BLOOD SPECIMENOrdering Facility: [facility] Address: [address] [place] [address] Performed By: #### 5 5454-3 ####[facility] LABCLIA [id number] [place] [address] [place]#### 83258-1 ####[facility]ORYCLIA [id number] [address] [place] Neutrophils (Bld) [#/Vol] 17.99 10*3/uL High 1.45-7.50 [facility] Comment on above: Order Comment: Speci men Type: BLOOD SPECIMENOrdering Facility: [facility] Address: [address] [place] [address] Performed By: #### 5 5454-3 ####[facility] LABCLIA [id number] [place] [address] [place]#### 87470-0 ####[facility]CL[facility] [id number] [address] Neutrophils/100 WBC (Bld) 90.6 % Normal [facility] Comment on above: Order Comment: Speci men Type: BLOOD SPECIMENOrdering Facility: [facility] Address: [address] [place] [address] Performed By: #### 5 5454-3 ####[facility] LABCLIA [id number] [place] [address] [place]#### 19219-6 ####[facility]ORYCLIA [id number] [place] [address] [place] Nucleated RBC (Bld) [#/Vol] 10*3/uL Normal <0.01 [facility] Comment on above: Order Comment: Speci men Type: BLOOD SPECIMENOrdering Facility: [facility] Address: [address] [place] [address] Performed By: #### 5 5454-3 ####[facility] LABCLIA [id number] [place] [address] [place]#### 71151-2 ####[facility] [id number] [place] [address] [place] Nucleated RBC/100 WBC (Bld) [Ratio] 0.0 /100 WBC Normal [facility] Comment on above: Order Comment: Speci men Type: BLOOD SPECIMENOrdering Facility: [facility] Address: [address] [place] [address] Performed By: #### 5 5454-3 ####[facility] LABCLIA [id number] [place] [address] [place]#### 17602-7 ####[facility] [id number] [place] [address] [place] Platelet mean volume (Bld) [Entitic vol] 9.0 fL Normal 9.0-12.7 [facility] Comment on above: Order Comment: Speci men Type: BLOOD SPECIMENOrdering Facility: [facility] Address: [address] [place] [address] Performed By: #### 5 5454-3 ####[facility] LABCLIA [id number] [place] [address] [place]#### 97798-2 ####[facility]ORYCLIA [id number] [place] [address] [place] Platelets (Bld) [#/Vol] 326 10*3/uL Normal 150-400 [facility] Comment on above: Order Comment: Speci men Type: BLOOD SPECIMENOrdering Facility: [facility] Address: [address] [place] [address] Performed By: #### 5 5454-3 ####[facility] LABCLIA [id number] [place] [address] [place]#### 46244-5 ####[facility]ORYCLIA [id number] [place] [address] [place] RBC (Bld) [#/Vol] 3.83 10*6/uL Low 3.90-5.20 [facility] Comment on above: Order Comment: Speci men Type: BLOOD SPECIMENOrdering Facility: [facility] Address: [address] [place] [address] Performed By: #### 5 5454-3 ####[facility] LABCLIA [id number] [place] [address] [place]#### 30971-9 ####[facility] [id number] [address] [place] [facility] WBC (Bld) [#/Vol] 19.86 10*3/uL High 3.70-11.00 [facility] Comment on above: Order Comment: Speci men Type: BLOOD SPECIMENOrdering Facility: [facility] Address: [address] [place] [address] Performed By: #### 5 5454-3 ####[facility] LABCLIA [id number] [address] [place]#### 07342-3 ####[facility]ORYCLIA [id number] [address] [place] CRP SerPl-ncon 11-21-2024 CRP [Mass/Vol] 3.8 mg/dL High <0.9 [facility] Comment on above: Order Comment: Speci men Type: BLOOD SPECIMENOrdering Facility: [facility] Address: [address] [place] [address] Performed By: #### 2 4323-8, 74717-5, 1988-5, 67463-9 ####[facility]ORYCLIA [id number] [place] [address] [place] Comprehensive metabolic 2000 panelon 11-21-2024 Albumin [Mass/Vol] 3.7 g/dL Low 3.9-4.9 [facility] Comment on above: Order Comment: Speci men Type: BLOOD SPECIMENOrdering Facility: [facility] Address: [address] [place] [address] Performed By: #### 2 4323-8, 39475-8, 1988-03, ####[facility]ORYCLIA [id number] [address] [place] ALP [Catalytic activity/Vol] 90 U/L Normal 34-123 [facility] Comment on above: Order Comment: Speci men Type: BLOOD SPECIMENOrdering Facility: [facility] Address: [address] [place] [address] [place] [address] Performed By: #### 2 4323-8, 34314-1, 1988-03, ####[facility]ORYCLIA [id number] [address] ALT [Catalytic activity/Vol] 10 U/L Normal 7-38 [facility] Comment on above: Order Comment: Speci men Type: BLOOD SPECIMENOrdering Facility: [facility] Address: [facility] [place] [address] Performed By: #### 2 4323-8, 66042-4, 1988-03, ####[facility]ORYCLIA [id number] [address] Anion gap [Moles/Vol] 13 mmol/L Normal 8-15 [facility] Comment on above: Order Comment: Speci men Type: BLOOD SPECIMENOrdering Facility: [facility] Address: [address] [place] [address] Performed By: #### 2 4323-8, 90233-2, 1988-03, ####[facility]ORYCLIA [id number] [address] AST [Catalytic activity/Vol] 14 U/L Normal 13-35 [facility] Comment on above: Order Comment: Speci men Type: BLOOD SPECIMENOrdering Facility: [facility] Address: [address] [place] [address] [place] [address] Performed By: #### 2 4323-8, 71909-4, 1988-03, ####[facility]ORATORYCLIA [id number] [place] [address] [place] Bilirubin [Mass/Vol] 0.2 mg/dL Normal 0.2-1.3 [facility] Comment on above: Order Comment: Speci men Type: BLOOD SPECIMENOrdering Facility: [facility] Address: [facility] [place] [address] Performed By: #### 2 4323-8, 62409-8, 1988-03, ####[facility]ORYCLIA [id number] [place] [address] [place] Calcium [Mass/Vol] 9.3 mg/dL Normal 8.5-10.2 [facility] Comment on above: Order Comment: Speci men Type: BLOOD SPECIMENOrdering Facility: [facility] Address: [address] [place] [address] [place] [address] Performed By: #### 2 4323-8, 71917-6, 1988-03, ####[facility]ORYCLIA [id number] [place] [address] [place] Chloride [Moles/Vol] 96 mmol/L Low 98-107 [facility] Comment on above: Order Comment: Speci men Type: BLOOD SPECIMENOrdering Facility: [facility] Address: [facility] [place] [address] Performed By: #### 2 4323-8, , 1988-03, ####[facility]ORATORYCLIA [id number] [place] [address] [place] CO2 [Moles/Vol] 25 mmol/L Normal 22-30 [facility] Comment on above: Order Comment: Speci men Type: BLOOD SPECIMENOrdering Facility: [facility] Address: [facility] [place] [address] Performed By: #### 2 4323-8, 76361-8, 1988-03, ####[facility]ATORYCLIA [id number] [place] [address] [place] Creatinine [Mass/Vol] 1.02 mg/dL High 0.58-0.96 [facility] Comment on above: Order Comment: Fan meade Type: BLOOD SPECIMENOrdering Facility: [facility] Address: [address] [place] [address] Performed By: #### 2 4323-8, 34303-0, 1988-03, ####[facility] [id number] [address] Creatinine and Glomerular filtration rate.predicted panel (S/P/Bld) 53 mL/min/1.73m??? Low >=60 [facility] Comment on above: Order Comment: Fan meade Type: BLOOD SPECIMENOrdering Facility: [facility] Address: [address] [place] [address] Result Comment: Hilda mated Glomerular Filtration Rate [...] actual GFR. Performed By: #### 2 4323-8, 82826-7, 1988-03, ####[facility]ATORYCLIA [id number] [address] STATES OF [facility] Glucose [Mass/Vol] 314 mg/dL High 74-99 [facility] Comment on above: Order Comment: Fan meade Type: BLOOD SPECIMENOrdering Facility: [facility] Address: [address] [place] [address] Result Comment: The [place] Diabetes Association (ADA) provides guidance for cutoff [...] Standards of Medical Care in Diabetes 2016, [place] Diabetes Association. Diabetes Care. 2016.39(Suppl 1). Performed By: #### 2 4323-8, 04966-5, 1988-03, ####[facility]ORATORYCLIA [id number] [place] [address] [place] Potassium [Moles/Vol] 4.7 mmol/L Normal 3.7-5.1 [facility] Comment on above: Order Comment: Speci men Type: BLOOD SPECIMENOrdering Facility: [facility] Address: [address] [place] [address] Performed By: #### 2 4323-8, 26974-0, 1988-03, ####[facility]ORATORYCLIA [id number] [place] [address] [place] Protein [Mass/Vol] 6.4 g/dL Normal 6.3-8.0 [facility] Comment on above: Order Comment: Speci men Type: BLOOD SPECIMENOrdering Facility: [facility] Address: [address] [place], [place] [address] Performed By: #### 2 4323-8, 25276-7, 1988-03, ####[facility]ORATORYCLIA [id number] [place] [address] [place] Sodium [Moles/Vol] 134 mmol/L Low 136-144 [facility] Comment on above: Order Comment: Speci men Type: BLOOD SPECIMENOrdering Facility: [facility] Address: [address] [place] [address] Performed By: #### 2 4323-8, 14928-9, 1988-03, ####[facility]ORATORYCLIA [id number] [place] [address] [place] Urea nitrogen [Mass/Vol] 37 mg/dL High 7-21 [facility] Comment on above: Order Comment: Speci men Type: BLOOD SPECIMENOrdering Facility: [facility] Address: [address] [place] [address] Performed By: #### 2 4323-8, 65072-7, 1988-5, 39202-7 ####[facility]ORYCL[facility] [id number] [place] [address] [place] [facility] ED PROV NOTEon 11-21-2024 ED PROV NOTE Normal [facility] ED Triage Noteon 11-21-2024 ED Triage Note Normal [facility] HbA1c (Bld)on 11-21-2024 Average glucose Estimated from glycated hemoglobin (Bld) [Mass/Vol] 252 mg/dL Normal [facility] Comment on above: Order Comment: Speci men Type: BLOOD SPECIMENOrdering Facility: [facility] Address: [address] [place] [address] Result Comment: eAG: (Estimated average glucose) is a calculated value from HgbA1c and is administrative representative of the average blood glucose level in the last 2-3 month period. Performed By: #### 5 5454-3 ####[facility] LABCLIA [id number] [address]#### 66616-5 ####[facility]ORYCL[facility] [id number] [address] [place] [facility] HbA1c (Bld) [Mass fraction] 10.4 % High 4.3-5.6 [facility] Comment on above: Order Comment: Fan meade Type: BLOOD SPECIMENOrdering Facility: [facility] Address: [address] [place] [address] Result Comment: [place] Diabetes Association guidelines indicate that patients with HgbA1c in the range 5.7-6.4% are at increased risk for development of diabetes, and intervention by lifestyle modification may be beneficial. HgbA1c greater or equal to 6.5% is considered diagnostic of diabetes. Performed By: #### 5 5454-3 ####[facility] LABCLIA [id number] [address] [place]#### 35070-4 ####[facility]ORYCLIA [id number] [address] [place] [facility] NT-proBNP [facility] Natriuretic peptide.B prohormone N-Terminal [Mass/Vol] 1157 pg/mL High <450 [facility] Comment on above: Order Comment: Speci men Type: BLOOD SPECIMENOrdering Facility: [facility] Address: [address] [place] [address] Performed By: #### 2 4323-8, 65253-4, 1988-03, 77290-4 ####[facility]ORYCLIA [id number] [place] [id number] [facility] [place] Procalcitonin SerPl-mCncon 0 11-21-2024 Procalcitonin [Mass/Vol] 0.14 ng/mL High <0.09 [facility] Comment on above: Order Comment: Speci men Type: BLOOD SPECIMENOrdering Facility: [facility] Address: [address] [place] [address] Result Comment: For a guided interpretation of test results, please visit the Change in Procalcitonin Calculator, [email or web address]. Performed By: #### 2 4323-8, 19126-1, 1988-03, ####[facility]ORYCLIA [id number] [place] [id number] [place] SEPSIS LACTATE W/ REFLEX (IN ITIAL)on 11-21-2024 Lactate [Moles/Vol] 2.2 mmol/L High 0.5-2.0 [facility] Comment on above: Order Comment: Speci men Type: BLOOD SPECIMENOrdering Facility: [facility] Address: [address] [place] [address] Performed By: #### S LACTR ####[facility]ORYCLIA [id number] [place] [address] [place] XR ANKLE 3V AP/LAT/OBL RTon 11-21-2024 XR ANKLE 3V AP/LAT/OBL RT Normal [facility] CBC W Auto Differential pane l (Bld)on 11-19-2024 Basophils (Bld) [#/Vol] 0.05 10*3/uL Normal <0.11 [facility] Comment on above: Order Comment: Speci men Type: BLOOD SPECIMENOrdering Facility: [facility] Address: [address] [place] [address] Performed By: #### 5 7021-8 ####[facility] LABCLIA [id number] [place] [address] [place] Basophils/100 WBC (Bld) 0.5 % Normal [facility] Comment on above: Order Comment: Speci men Type: BLOOD SPECIMENOrdering Facility: [facility] Address: [address] [place] [address] Performed By: #### 5 7021-8 ####[facility] LABCLIA [id number] [place] [address] [place] Differential cell count method Nom (Bld) Auto Normal [facility] Comment on above: Order Comment: Speci men Type: BLOOD SPECIMENOrdering Facility: [facility] Address: [address] [place] [address] Performed By: #### 5 7021-8 ####[facility] LABCLIA [id number] [place] [address] [place] Eosinophils (Bld) [#/Vol] 0.12 10*3/uL Normal <0.46 [facility] Comment on above: Order Comment: Speci men Type: BLOOD SPECIMENOrdering Facility: [facility] Address: [address] [place] [address] Performed By: #### 5 7021-8 ####[facility] LABCLIA [id number] [place] [address] [place] Eosinophils/100 WBC (Bld) 1.3 % Normal [facility] Comment on above: Order Comment: Speci men Type: BLOOD SPECIMENOrdering Facility: [facility] Address: [address] [place] [address] Performed By: #### 5 7021-8 ####[facility] LABCLIA [id number] [place] [address] [place] Erythrocyte distribution width (RBC) [Ratio] 14.8 % Normal 11.5-15.0 [facility] Comment on above: Order Comment: Speci men Type: BLOOD SPECIMENOrdering Facility: [facility] Address: [address] [place] [address] Performed By: #### 5 7021-8 ####[facility] LABIA [id number] [place] [address] [place] Hematocrit (Bld) [Volume fraction] 35.8 % Low 36.0-46.0 [facility] Comment on above: Order Comment: Speci men Type: BLOOD SPECIMENOrdering Facility: [facility] Address: [address] [place] [address] Performed By: #### 5 7021-8 ####[facility] LABIA [id number] [place] [address] [place] Hemoglobin (Bld) [Mass/Vol] 11.5 g/dL Normal 11.5-15.5 [facility] Comment on above: Order Comment: Speci men Type: BLOOD SPECIMENOrdering Facility: [facility] Address: [address] [place] [address] Performed By: #### 5 7021-8 ####[facility] LABIA [id number] [place] [address] [place] Immature granulocytes (Bld) [#/Vol] 0.07 10*3/uL Normal <0.10 [facility] Comment on above: Order Comment: Speci men Type: BLOOD SPECIMENOrdering Facility: [facility] Address: [address] [place] [address] Performed By: #### 5 7021-8 ####[facility] LABIA [id number] [place] [address] [place] Immature granulocytes/100 WBC (Bld) 0.7 % Normal [facility] Comment on above: Order Comment: Speci men Type: BLOOD SPECIMENOrdering Facility: [facility] Address: [address] [place] [address] Performed By: #### 5 7021-8 ####[facility] LABCLIA [id number] [place] [address] [place] Lymphocytes (Bld) [#/Vol] 1.19 10*3/uL Normal 1.00-4.00 [facility] Comment on above: Order Comment: Speci men Type: BLOOD SPECIMENOrdering Facility: [facility] Address: [address] [place] [address] Performed By: #### 5 7021-8 ####[facility] LABCLIA [id number] [place] [address] [place] Lymphocytes/100 WBC (Bld) 12.7 % Normal [facility] Comment on above: Order Comment: Speci men Type: BLOOD SPECIMENOrdering Facility: [facility] Address: [address] [place] [address] Performed By: #### 5 7021-8 ####[facility] LABCLIA [id number] [place] [address] [place] MCH (RBC) [Entitic mass] 28.0 pg Normal 26.0-34.0 [facility] Comment on above: Order Comment: Speci men Type: BLOOD SPECIMENOrdering Facility: [facility] Address: [address] [place] [address] Performed By: #### 5 7021-8 ####[facility] LABCLIA [id number] [place] [address] [place] MCHC (RBC) [Mass/Vol] 32.1 g/dL Normal 30.5-36.0 [facility] Comment on above: Order Comment: Speci men Type: BLOOD SPECIMENOrdering Facility: [facility] Address: [address] [place] [address] Performed By: #### 5 7021-8 ####[facility] LABCLIA [id number] [place] [address] [place] MCV (RBC) [Entitic vol] 87.1 fL Normal 80.0-100.0 [facility] Comment on above: Order Comment: Speci men Type: BLOOD SPECIMENOrdering Facility: [facility] Address: [address] [place] [address] Performed By: #### 5 7021-8 ####[facility] LABCLIA [id number] [place] [address] [place] Monocytes (Bld) [#/Vol] 0.67 10*3/uL Normal <0.87 [facility] Comment on above: Order Comment: Speci men Type: BLOOD SPECIMENOrdering Facility: [facility] Address: [address] [place] [address] Performed By: #### 5 7021-8 ####[facility] LABCLIA [id number] [place] [address] [place] Monocytes/100 WBC (Bld) 7.1 % Normal [facility] Comment on above: Order Comment: Speci men Type: BLOOD SPECIMENOrdering Facility: [facility] Address: [address] [place] [address] Performed By: #### 5 7021-8 ####[facility] LABCLIA [id number] [place] [address] [place] Neutrophils (Bld) [#/Vol] 7.29 10*3/uL Normal 1.45-7.50 [facility] Comment on above: Order Comment: Speci men Type: BLOOD SPECIMENOrdering Facility: [facility] Address: [address] [place] [address] Performed By: #### 5 7021-8 ####[facility] LABCLIA [id number] [place] [address] [place] Neutrophils/100 WBC (Bld) 77.7 % Normal [facility] Comment on above: Order Comment: Speci men Type: BLOOD SPECIMENOrdering Facility: [facility] Address: [address] [place] [address] Performed By: #### 5 7021-8 ####[facility] LABCLIA [id number] [place] [address] [place] Nucleated RBC (Bld) [#/Vol] 10*3/uL Normal <0.01 [facility] Comment on above: Order Comment: Speci men Type: BLOOD SPECIMENOrdering Facility: [facility] Address: [address] [place] [address] Performed By: #### 5 7021-8 ####[facility] LABCLIA [id number] [place] [address] [place] Nucleated RBC/100 WBC (Bld) [Ratio] 0.0 /100 WBC Normal [facility] Comment on above: Order Comment: Speci men Type: BLOOD SPECIMENOrdering Facility: [facility] Address: [address] [place] [address] Performed By: #### 5 7021-8 ####[facility] LABCLIA [id number] [place] [address] [place] Platelet mean volume (Bld) [Entitic vol] 9.6 fL Normal 9.0-12.7 [facility] Comment on above: Order Comment: Speci men Type: BLOOD SPECIMENOrdering Facility: [facility] Address: [address] [place] [address] Performed By: #### 5 7021-8 ####[facility] LABCLIA [id number] [place] [address] [place] Platelets (Bld) [#/Vol] 405 10*3/uL High 150-400 [facility] Comment on above: Order Comment: Speci men Type: BLOOD SPECIMENOrdering Facility: [facility] Address: [address] [place] [address] Performed By: #### 5 7021-8 ####[facility] LABCLIA [id number] [place] [address] [place] RBC (Bld) [#/Vol] 4.11 10*6/uL Normal 3.90-5.20 [facility] Comment on above: Order Comment: Speci men Type: BLOOD SPECIMENOrdering Facility: [facility] Address: [address] [place] [address] Performed By: #### 5 7021-8 ####[facility] [id number] [place] [address] [place] WBC (Bld) [#/Vol] 9.39 10*3/uL Normal 3.70-11.00 [facility] Comment on above: Order Comment: Speci men Type: BLOOD SPECIMENOrdering Facility: [facility] Address: [address] [place] [address] Performed By: #### 5 7021-8 ####[facility] [id number] [place] [address] [place] Ferritin SerPl-mCncon 2024 Ferritin [Mass/Vol] 39.6 ng/mL Normal 14.7-205.1 [facility] Comment on above: Order Comment: Speci men Type: BLOOD SPECIMENOrdering Facility: [facility] Address: [address] [place] [address] Performed By: #### 5 0190-8, 2276-4 ####[facility] [id number] [place] [address] [place] Iron and Iron binding capaci ty panelon 11-19-2024 Iron [Mass/Vol] 65 ug/dL Normal 41-186 [facility] Comment on above: Order Comment: Speci men Type: BLOOD SPECIMENOrdering Facility: [facility] Address: [address] [place] [address] Performed By: #### 5 0190-8, 2276-4 ####[facility] LABIA [id number] [place] [address] [place] Iron binding capacity [Mass/Vol] 392 ug/dL High 232-386 [facility] Comment on above: Order Comment: Speci men Type: BLOOD SPECIMENOrdering Facility: [facility] Address: [address] [place] [address] Performed By: #### 5 0190-8, 2276-4 ####[facility] LABCLIA [id number] [address] [place] Iron/TIBC [Molar ratio] 16.6 % Normal 15.0-57.0 [facility] Comment on above: Order Comment: Speci men Type: BLOOD SPECIMENOrdering Facility: [facility] Address: [address] [place] [address] Performed By: #### 5 0190-8, 2276-4 ####[facility] LABCLIA [id number] [address] STATES OF [facility] MR Ankle - right WO contrast on 11-19-2024 IMPRESSION: Nonspecific circumferential subcutaneous/soft tissue edema involving the distal leg and ankle. Muscle fatty changes and edema which may be related to disuse. Moderate midfoot osteoarthritis. No evidence of inflammatory arthritis. Elephant Keeper: PHU Transcribe Date/Time: Nov 19 2024 10:47A Dictated by : CHANDNI ZIMMERMAN MD This examination was interpreted and the report reviewed and electronically signed by: LAZARO OAHRA MD on Nov 19 2024 1:28PM [facility] DIVISION OF RADIOLOGY * * *Final Report* * * DATE OF EXAM: Nov 19 2024 10:08AM [facility] 0164 - MRI ANKLE WO IVCON [...] significant additional findings. DIVISION OF RADIOLOGY Provider, [facility] - 11/19/2024 * * *Final Report* * [...] midfoot osteoarthritis. No evidence of inflammatory arthritis. Elephant Keeper: PHU Transcribe Date/Time: Nov 19 2024 10:47A Dictated by : CHANDNI ZIMMERMAN MD This examination was interpreted and the report reviewed and electronically signed by: LAZARO OHARA MD on Nov 19 2024 1:28PM EST [facility] Radiology Study observation (narrative) [facility] MR Ankle - right WO contrast Ordered By: Ccf Provider on 11-19-2024 [facility] MRI ANKLE WO IVCON RTon MRI [...] predominantly lateral. Suspect inflammatory arthritic condition, positive RUEBN, elevated CRP and leukocytes. TECHNIQUE: Routine MRI [...] midfoot osteoarthritis. No evidence of inflammatory arthritis. Elephant Keeper: PHU Transcribe Date/Time: Nov 19 2024 10:47A Dictated by : CHANDNI ZIMMERMAN MD This examination was interpreted and the report reviewed and electronically signed by: LAZARO OHARA MD on Nov 19 2024 1:28PM EST [id number] Normal [facility] Zinc SerPl-mCncon 11-19-2024 Zinc [Mass/Vol] 55 ug/dL Low 60-120 [facility] Comment on above: Order Comment: Speci men Type: BLOOD SPECIMEN [facility] Address: [address] [place] [address] Result Comment: This test was developed, and its performance characteristics determined by the [facility] Department of Pathology and Laboratory Medicine. It has not been cleared or approved by the FDA. The [facility] Department of Pathology and Laboratory Medicine is regulated under CLIA as qualified to perform high-complexity testing. This test is used for clinical purposes. It should not be regarded as investigational or for research. Performed By: #### 5 763-8 #### [facility] CLIA [id number] [address] [place] [address] [place] CNPKelsie 11-06-2024 [facility] Telephone ([facility]) YUSUF MEDINA ([id number]) 1935 F [place] Date Time Provider Department 11/06/24 WILLIE KAUR [facility] During your visit today, we recorded the [...] Known Allergies) Date Reviewed: 11/01/2024 Reviewed by: Eveila Love MA - Fully Assessed Reason for [...] patient by: CAREGIVER José Miguel Swanson [facility] Problem List As Of Date 11/06/2024 Noted [...] 07/17/2013 05/11/2016 (more content not included)... Normal [facility] Arti 11-05-2024 CNPN Telephone ([facility]) YUSUF MEDINA ([id number]) 1935 F [place] Date Time Provider Department 11/05/24 GRUPO MENDEZ [facility]EMAST During your visit today, we recorded the following information about you: Grupo Mendez MD 11/05/2024 6:55 PM Signed Patient has secondary leukocytosis in the setting of highly elevated sed rate, RUBEN 1:320 titer, positive TRUANT OFFICER Hematology work-up was essentially negative highlighting concern for rheumatological disease. Patient is leaving to [place] for 2 weeks I will schedule lab [...] BLOOD COUNT AND DIFFERENTIAL [SQCBCDIF] Order #: [id number] FUTURE IRON AND TIBC [SQIRON] Order #: [id number] FUTURE FERRITIN [SQFERR] Order #: [id number] FUTURE ZINC BLD [SQZINC] Order #: [id number] FUTURE Prescriptions as of 11/05/2024 - meloxicam (MOBIC) 15 mg tablet TAKE 1 TABLET BY MOUTH ONCE DAILY NEEDED FOR PAIN. DO NOT COMBINE WITH DICLOFENAC GEL - traZODone (DESYREL) 50 mg tablet Take 1 tablet by mouth at bedtime as needed for sedation. - blood sugar diagnostic ([employer] ULTRA TEST) test strip Test blood sugar [...] patient by: CAREGIVER José Miguel Swanson [facility] Problem List As Of Date 11/05/2024 Noted [...] [N18.9] 05/11/2016 (more content not included)... Normal [facility] CNOVon 11-01-2024 CNOV Office Visit ([facility] ) YUSUF MEDINA ([id number]) 1935 [place] Date Time Provider Department 11/01/24 2:50 PM SIMONE KEVIN [facility] During your visit today, we recorded the [...] L REMV CATARACT EXTRACAP,INSERT LENS Bilateral 2020 [facility] Family History: FAMILY HISTORY Problem Relation Age of Onset None Brother None Sister None Brother Medications: Current Outpatient Medications Medication Sig meloxicam (MOBIC) 15 mg tablet TAKE 1 TABLET BY MOUTH ONCE DAILY NEEDED FOR PAIN. DO NOT COMBINE WITH DICLOFENAC GEL traZODone (DESYREL) 50 mg tablet Take 1 tablet by mouth at bedtime as needed for sedation. blood sugar diagnostic ([employer]UCH ULTRA TEST) test strip Test blood sugar [...] Plan: Rig (more content not included)... Normal [facility] CRP SerPl-mCncon 11-01-2024 CRP [Mass/Vol] 0.3 mg/dL Normal <0.9 [facility] Comment on above: Order Comment: Fan meade Type: BLOOD SPECIMEN [facility] Address: [address] [place] [address] Performed By: #### 2 132-9, 2284-8 #### [facility] CLIA [id number] [address] [place] [address] [place] ESR Westergren method (Bld) [Velocity]on 11-01-2024 ESR (Bld) [Velocity] 36 mm/h High 0-20 [facility] Comment on above: Order Comment: Fan meade Type: BLOOD SPECIMEN [facility] Address: [address] [place] [address] Performed By: #### 5 763-8 #### [facility] CLIA [id number] [address] [place] [address] [place] XR ANKLE 3V [...] planus and mild to moderate midfoot osteoarthritis. Elephant Keeper: PHU Transcribe Date/Time: Nov 02 2024 11:17A Dictated by : SHARYN UMANA MD This examination was interpreted and the report reviewed and electronically signed by: SHARYN UMANA MD on Nov 02 2024 11:20AM EST [id number] Normal [facility] XR FOOT 3V AP/LAT/OBL RTon 1 [...] planus and mild to moderate midfoot osteoarthritis. Elephant Keeper: [facility] Transcribe Date/Time: Nov 02 2024 11:17A Dictated by : SHARYN UMANA MD This examination was interpreted and the report reviewed and electronically signed by: SHARYN UMANA MD on Nov 02 2024 11:20AM EST [id number] Normal [facility] CNOVon 10-29-2024 CNOV Office Visit ([facility] ) YUSUF MEDINA ([id number]) 1935 F [place] Date Time Provider Department 10/29/24 4:20 PM AB BENSON [facility] During your visit today, we recorded the following information about you: Temperature Pulse Blood pressure Weight 99.3 degrees 66/minute 159/72 48 kg Ab Benson MD 11/04/2024 7:29 PM Signed This note was created using [employer]. Subjective Yusuf Medina is a 88 year [...] needed for sedation. - blood sugar diagnostic ([employer]UCH ULTRA TEST) test strip Test blood sugar [...] patient by: CAREGIVER José Miguel Swanson [facility] Problem List As Of Date 10/29/2024 Noted [...] intervert*10/31/2010 [employer]oart (more content not included)... Normal [facility] CNOVon 09-20-2024 CNOV Office Visit ([facility] ) YUSUF MEDINA ([id number]) 1935 F [place] Date Time Provider Department [...] L REMV CATARACT EXTRACAP,INSERT LENS Bilateral 2020 [facility] Family History: FAMILY HISTORY Problem Relation [...] malleolus NTTP (more content not included)... Normal [facility] BCR/ABL1 P210 AND P190 DIAGN OSTIC PCR BLOODon 09-19-2024 BCR/ABL1 P210 AND P190 DIAGNOSTIC PCR BLOOD RESULT BCR/ABL1 p210 and p190 Diagnostic PCR Laboratory Accession Number: [id number] Sample Type: Peripheral Blood Result: NOT DETECTED; [...] this sample, and cDNA prepared by reverse blind installer. Real time PCR was performed in two separate reactions, using primers for e13a2 and/or e14a2 BCR/ABL1 fusion transcripts and ABL1 transcripts for p210 detection and primers for e1a2 BCR/ABL1 fusion transcripts and ABL1 transcripts for p190 detection ([employer] BCR/ABL IS assay, [employer], [place], [place]). This assay has a limit [...] developed and its performance characteristics determined by [facility]'s Pathology and Laboratory Medicine Department. It has not been cleared or approved by the FDA. [facility]'s Pathology and Laboratory Medicine Department is regulated under CLIA as certified to perform high-complexity testing. This test is used for clinical purposes. It should not be regarded as investigational or for research. Testing and interpretation performed at [facility], [address] [place] [address]. CLIA Number: [id number] As reviewed by José Miguel Persaud MD [facility] METHYLMALONIC ACIDon 024 Methylmalonate [Moles/Vol] 0.29 umol/L NINF - 0.40 umol/L [facility] Comment on above: This test was develo ped, and its performance characteristics determined by the [facility] Department of Pathology and Laboratory Medicine. It has not been cleared or approved by the FDA. The [facility] Department of Pathology and Laboratory Medicine is regulated under CLIA as qualified to perform high-complexity testing. This test is used for clinical purposes. It should not be regarded as investigational or for research. Methylmalonate [Moles/Vol]on 09-19-2024 Interpretation and review of laboratory results Normal [facility] XR CALCANEUS 2V AXIAL/LAT RT on [...] planus with calcaneal enthesophytes and bone demineralization. Elephant Keeper: PHU Transcribe Date/Time: Sep 21 2024 11:34A Dictated by : ALEJANDRA MONCADA MD This examination was interpreted and the report reviewed and electronically signed by: ALEJANDRA MONCADA MD on Sep 21 2024 11:39AM EST [id number] Normal [facility] XR FOOT 3V AP/LAT/OBL RTon 1 [...] toes with hammertoe deformities. 4. Calcaneal enthesophytes. Elephant Keeper: [facility] Transcribe Date/Time: Sep 21 2024 11:40A Dictated by : ALEJANDRA MONCADA MD This examination was interpreted and the report reviewed and electronically signed by: ALEJANDRA MONCADA MD on Sep 21 2024 11:59AM EST [id number] Normal [facility] CCP ANTIBODY IGGOrdered By: Robin Zavala on 09-18-2024 Cyclic citrullinated peptide IgG Qn NINF [facility] CNPNon 09-18-2024 CNPN Telephone ([facility]) YUSUF MEDINA ([id number]) 1935 F [place] Date Time Provider Department 09/18/24 GRUPO MENDEZ During your visit today, we recorded the following information about you: Grupo Mendez MD 09/18/2024 9:19 PM Signed Results were reviewed. I spoke with jovtuj-om-mzc Demetria about suspicion for calcaneal bone fracture. [...] initial encounter [S92.001A] Order(s):CONSULT PANEL TO ORTHOPAEDICS [441550] Order #: [id number]: 1 FUTURE Prescriptions as of 09/18/2024 - traZODone (DESYREL) 50 mg tablet Take 1 tablet by mouth at bedtime as needed for sedation. - blood sugar diagnostic ([employer] ULTRA TEST) test strip Test blood sugar [...] patient by: CAREGIVER José Miguel Swanson [facility] Problem List As Of Date 09/18/2024 Noted [...] dependent (NIDDM*03/07 (more content not included)... Normal [facility] COPPER BLOODon 09-18-2024 Copper [Mass/Vol] 128 ug/dL 80 - 155 ug/dL [facility] Comment on above: This test was corina jiang, and its performance characteristics determined by the [facility] Department of Pathology and Laboratory Medicine. It has not been cleared or approved by the FDA. The [facility] Department of Pathology and Laboratory Medicine is regulated under CLIA as qualified to perform high-complexity testing. This test is used for clinical purposes. It should not be regarded as investigational or for research. Interpretation and review of laboratory results Normal [facility] Cyclic citrullinated peptide IgG QnOrdered By: Robin Zavala on 09-18-2024 CCP Antibody IgG Qualitative Negative Negative [facility] Interpretation and review of laboratory results Normal [facility] This test is used as aid in diagnosis of Rheumatoid arthritis (RA). A negative result cannot rule out RA where clinically suspected. Clinical correlation is required. The following results were obtained with an [employer] QUANTA Lite CCP IgG JOE. Cyclic Citrullinated Peptide IgG values obtained with different manufacturers' assay methods may not be used interchangeably. The magnitude of the reported IgG levels cannot be correlated to an endpoint titer. [facility] FERRITINon 09-18-2024 Ferritin [Mass/Vol] 59.9 ng/mL 14.7 - 2 05.1 ng/mL [facility] FOLATE, SERUMon 09-18-2024 Folate [Mass/Vol] 18.8 ng/mL 4.7 - PINF ng/mL [facility] Ferritin [Mass/Vol]on 2023 Interpretation and review of laboratory results Normal [facility] HOMOCYSTEINEon 09-18-2024 Homocysteine [Moles/Vol] 21.2 umol/L High NINF - 15.1 umol/L [facility] Homocysteine [Moles/Vol]on 11-18-2023 Interpretation and review of laboratory results Abnormal [facility] Iron and Iron binding capaci ty panelon 09-18-2024 Interpretation and review of laboratory results Abnormal [facility] Iron [Mass/Vol] 29 ug/dL Low 41 - 186 ug/dL [facility] Iron binding capacity [Mass/Vol] 407 ug/dL High 232 - 386 ug/dL [facility] Iron/TIBC [Molar ratio] 7.1 % Low 15.0 - 57.0 % [facility] No Panel InformationOrdered By: Cheryl Sinha on 09-18-2024 [facility] No Panel Informationon 09-18 Interpretation and review of laboratory results Normal [facility] Nuclear Ab IA Ql (S)Ordered By: Lien Matson on 09-18-2024 RUBEN Scr Qual Positive Abnormal Negative [facility] Comment on above: The qualitative anti nuclear antibody screen test performed using the following antigens: dsDNA, Chromatin, Ribosomal P, SS-A 60, SS-A 52, SS-B, Sm, SmRNP, TRUANT OFFICER A, TRUANT OFFICER 68, Scl-70, Nadege-1, and Centromere B. Methodology: Multiplex flow immunoassay. Interpretation and review of laboratory results Abnormal [facility] URIC ACIDon 09-18-2024 Urate [Mass/Vol] 5.6 mg/dL 2.5 - 6.6 mg/dL [facility] US DVT LOWER RTon 09-18-2024 US DVT LOWER RT Normal [facility] US Lower extremity vein - [facility] 09-18-2024 IMPRESSION: Negative study for proximal DVT in the right lower extremity. Negative study for calf DVT in the right lower extremity. Negative study for superficial thrombophlebitis in the imaged segments of the right lower extremity. Elephant Keeper: [facility] Transcribe Date/Time: Sep 18 2024 9:14A Dictated by : ZACH THOMPSON MD This examination was interpreted and the report reviewed and electronically signed by: ZACH THOMPSON MD on Sep 18 2024 9:20AM [facility] RADIOLOGY * * *Final Report* * [...] a permanent archive and interpreted remotely. MQ: [id number] COMPARISON: None RESULT: RIGHT LOWER EXTREMITY PROXIMAL [...] spontaneous respirophasic flow. Normal response to augmentation. [facility] Provider, [facility] - 09/18/2024 * * *Final [...] imaged segments of the right lower extremity. Elephant Keeper: PHU Transcribe Date/Time: Sep 18 2024 9:14A Dictated by : ZACH THOMPSON MD This examination was interpreted and the report reviewed and electronically signed by: ZACH THOMPSON MD on Sep 18 2024 9:20AM EST [facility] Radiology Study observation (narrative) [facility] US Lower extremity vein - ri ghtOrdered By: Ccf Provider on 09-18-2024 [facility] Urate [Mass/Vol]on Interpretation and review of laboratory results Normal [facility] VITAMIN B12on 09-18-2024 Cobalamin (Vitamin B12) [Mass/Vol] 433 pg/mL 232 - 1245 pg/mL [facility] XR Ankle - right AP and Late ral and obliqueon 09-18-2024 IMPRESSION: Marked right ankle soft tissue swelling. Osteopenia and suspicion of nondisplaced calcaneus fracture. Degenerative changes, calcaneal enthesophytes, and pes planus. Elephant Keeper: [facility] FLORENCEMary Transcribe Date/Time: Sep 18 2024 12:20P Dictated by : GERTRUDIS MONCADA MD This examination was interpreted and the report reviewed and electronically signed by: GERTRUDIS MONCADA MD on Sep 18 2024 12:22PM [facility] DIVISION OF RADIOLOGY * * *Final Report* [...] Degenerative changes, calcaneal enthesophytes, and pes planus. Elephant Keeper: PHU Transcribe Date/Time: Sep 18 2024 12:20P Dictated by : GERTRUDIS MONCADA MD This examination was interpreted and the report reviewed and electronically signed by: GERTRUDIS MONCADA MD on Sep 18 2024 12:22PM EST [facility] XR Ankle - right AP and Late ral and obliqueOrdered By: Ccf Provider on 09-18-2024 [facility] ZINC BLDOrdered By: Cheryl rodriguez on 09-18-2024 Zinc [Mass/Vol] 55 ug/dL Low 60 - 120 ug/dL [facility] Comment on above: This test was develo ped, and its performance characteristics determined by the [facility] Department of Pathology and Laboratory Medicine. It has not been cleared or approved by the FDA. The [facility] Department of Pathology and Laboratory Medicine is regulated under CLIA as qualified to perform high-complexity testing. This test is used for clinical purposes. It should not be regarded as investigational or for research. Zinc [Mass/Vol]Ordered By: Roxane Sinha on 09-18-2024 Interpretation and review of laboratory results Abnormal [facility] RUBEN BY IFA SCREENon 09-17-20 Nuclear Ab pattern (S) [Interp] Nuclear homogeneous Normal [facility] Comment on above: Order Comment: Fan meade Type: BLOOD SPECIMEN Ordering Facility: [facility] Address: [address] [place] [address] Performed By: #### 5 7021-8 #### [facility] CLIA [id number] [address] [place] [address] [place] Nuclear Ab Ql (S) Positive Abnormal Negative [facility] Comment on above: Order Comment: Fan meade Type: BLOOD SPECIMEN Ordering Facility: [facility] Address: [address] [place] [address] Result Comment: Anti -nuclear antibody test is used as an aid in diagnosis of systemic autoimmune diseases. Where positive and clinically warranted, follow-up using disease-specific testing is recommended. Low positive titers are not uncommon with advanced age, certain chronic infections, and malignancies among others. Test methodology: Indirect fluorescence immunoassay (IFA) using HEp-2 cells. 1:320 Performed By: #### 5 7021-8 #### [facility] CLIA [id number] [address] [place] [address] [place] BCR/ABL1 P190 NCN P210 % IS MR BLOODon 09-17-2024 BCR/ABL1 P190 NCN(%BCR/ABL1:ABL1) N/A Normal [facility] Comment on above: Order Comment: Fan meade Type: BLOOD SPECIMENOrdering Facility: [facility] Address: [address] [place] [address] Performed By: #### B CRPB1 ####[facility] LIMSCLIA [id number] [place] [address] [place]#### ISMRNCNPB ####[facility] [id number] [address] [place] BCR/ABL1 P210 %IS N/A Normal [facility] Comment on above: Order Comment: Speci men Type: BLOOD SPECIMENOrdering Facility: [facility] Address: [address] [place] [address] Performed By: #### B CRPB1 ####[facility] LIMSCLIA [id number] [place] [address] [place]#### ISMRNCNPB ####[facility] LABCLIA [id number] [place] [address] [place] BCR/ABL1 P210 MR N/A Normal [facility] Comment on above: Order Comment: Speci men Type: BLOOD SPECIMENOrdering Facility: [facility] Address: [address] [place] [address] Performed By: #### B CRPB1 ####[facility] LIMSCLIA [id number] [place] [address] [place]#### ISMRNCNPB ####[facility] LABCLIA [id number] [place] [address] [place] BCR/ABL1 P210 AND P190 DIAGN OSTIC PCR BLOODon 09-17-2024 BCR/ABL1 P210 AND P190 DIAGNOSTIC PCR BLOOD RESULT Normal [facility] Comment on above: Order Comment: Speci men Type: BLOOD SPECIMENOrdering Facility: [facility] Address: [address] [place] [address] Result Comment: BCR/ ABL1 p210 and p190 Diagnostic PCR Laboratory Accession Number: [id number] Sample Type: Peripheral Blood Result: NOT DETECTED; [...] this sample, and cDNA prepared by reverse blind installer. Real time PCR was performed in two separate reactions, using primers for e13a2 and/or e14a2 BCR/ABL1 fusion transcripts and ABL1 transcripts for p210 detection and primers for e1a2 BCR/ABL1 fusion transcripts and ABL1 transcripts for p190 detection (QuantideX BCR/ABL IS assay, [employer], [place], [place]). This assay has a limit [...] developed and its performance characteristics determined by [facility]'s Pathology and Laboratory Medicine Department. It has not been cleared or approved by the FDA. [facility]'s Pathology and Laboratory Medicine Department is regulated under CLIA as certified to perform high-complexity testing. This test is used for clinical purposes. It should not be regarded as investigational or for research. Testing and interpretation performed at [facility], [address] [place] [id number]. CLIA Number: [id number] As reviewed by José Miguel Persaud MD Performed By: #### B CRPB1 ####[facility] [id number] [place] [id number] [place]#### ISMRNCNPB ####[facility] LABCLIA [id number] [place] [id number] [place] CBC W Ordered Manual Differe ntial panel (Bld)on 09-17-2024 Basophils (Bld) [#/Vol] 0.03 10*3/uL [facility] [place] Basophils/100 WBC (Bld) 0.3 % [facility] Differential cell count method Nom (Bld) Auto [facility] Eosinophils (Bld) [#/Vol] 0.07 10*3/uL [facility] [place] Eosinophils/100 WBC (Bld) 0.7 % [facility] Erythrocyte distribution width (RBC) [Ratio] 14.2 % 11.5 - 15.0 % [facility] Hematocrit (Bld) [Volume fraction] 35.2 % Low 36.0 - 46.0 % [facility] Hemoglobin (Bld) [Mass/Vol] 11.4 g/dL Low 11.5 - 15.5 g/dL [facility] Immature granulocytes (Bld) [#/Vol] 0.06 10*3/uL [facility] [place] Immature granulocytes/100 WBC (Bld) 0.6 % [facility] Interpretation and review of laboratory results Abnormal [facility] Lymphocytes (Bld) [#/Vol] 1.42 10*3/uL [facility] Lymphocytes/100 WBC (Bld) 15.1 % [facility] MCH (RBC) [Entitic mass] 28.6 pg 26.0 - 34.0 pg [facility] MCHC (RBC) [Mass/Vol] 32.4 g/dL 30.5 - 36.0 g/dL [facility] MCV (RBC) [Entitic vol] 88.2 fL 80.0 - 100.0 fL [facility] Monocytes (Bld) [#/Vol] 0.52 10*3/uL [facility] [place] Monocytes/100 WBC (Bld) 5.5 % [facility] Neutrophils (Bld) [#/Vol] 7.33 10*3/uL [facility] Neutrophils/100 WBC (Bld) 77.8 % [facility] Nucleated RBC (Bld) [#/Vol] NINF [facility] Nucleated RBC/100 WBC (Bld) [Ratio] 0.0 % /100 WBC [facility] Platelet mean volume (Bld) [Entitic vol] 9.8 fL 9.0 - 12.7 fL [facility] Platelets (Bld) [#/Vol] 409 10*3/uL High [facility] RBC (Bld) [#/Vol] 3.99 10*6/uL 3.90 - 5.2 0 m/uL [facility] WBC (Bld) [#/Vol] 9.43 10*3/uL [facility] This is an appended report. These results have been appended to a previously verified report. [facility] Basophils (Bld) [#/Vol] 0.03 10*3/uL Normal <0.11 [facility] Comment on above: Order Comment: Speci men Type: BLOOD SPECIMENOrdering Facility: [facility] Address: [address] [place] [address] Performed By: #### 1 4196-0, [id number], [facility], 01766-3 ####[facility] LABIA [id number] [place] [address] [place] Basophils/100 WBC (Bld) 0.3 % Normal [facility] Comment on above: Order Comment: Speci men Type: BLOOD SPECIMENOrdering Facility: [facility] Address: [address] [place] [address] Performed By: #### 1 4196-0, [id number], [facility] 04967-2 ####[facility] LABCLIA [id number] [place] [address] [place] Differential cell count method Nom (Bld) Auto Normal [facility] Comment on above: Order Comment: Speci men Type: BLOOD SPECIMENOrdering Facility: [facility] Address: [address] [place] [address] Performed By: #### 1 4196-0, [id number], [facility], 48145-6 ####[facility] LABCLIA [id number] [place] [id number] [place] Eosinophils (Bld) [#/Vol] 0.07 10*3/uL Normal <0.46 [facility] Comment on above: Order Comment: Speci men Type: BLOOD SPECIMENOrdering Facility: [facility] Address: [address] [place] [address] Performed By: #### 1 4196-0, [id number], RADHA 57253-1 ####[facility] LABCLIA [id number] [place] [address] [place] Eosinophils/100 WBC (Bld) 0.7 % Normal [facility] Comment on above: Order Comment: Speci men Type: BLOOD SPECIMENOrdering Facility: [facility] Address: [address] [place] [address] Performed By: #### 1 4196-0, [id number], RADHA 39957-1 ####[facility] LABCLIA [id number] [place] [address] [place] Erythrocyte distribution width (RBC) [Ratio] 14.2 % Normal 11.5-15.0 [facility] Comment on above: Order Comment: Speci men Type: BLOOD SPECIMENOrdering Facility: [facility] Address: [address] [place] [address] Performed By: #### 1 4196-0, [id number], RADHA 86453-9 ####[facility] LABCLIA [id number] [place] [id number] [place] Hematocrit (Bld) [Volume fraction] 35.2 % Low 36.0-46.0 [facility] Comment on above: Order Comment: Speci men Type: BLOOD SPECIMENOrdering Facility: [facility] Address: [address] [place] [address] Performed By: #### 1 4196-0, [id number], [place], 81259-2 ####[facility] LABCLIA [id number] [place] [id number] [place] Hemoglobin (Bld) [Mass/Vol] 11.4 g/dL Low 11.5-15.5 [facility] Comment on above: Order Comment: Speci men Type: BLOOD SPECIMENOrdering Facility: [facility] Address: [address] [place] [address] Performed By: #### 1 4196-0, [id number], STFRZAID, 61441-2 ####[facility] LABIA [id number] [place] [address] [place] Immature granulocytes (Bld) [#/Vol] 0.06 10*3/uL Normal <0.10 [facility] Comment on above: Order Comment: Speci men Type: BLOOD SPECIMENOrdering Facility: [facility] Address: [address] [place] [address] Performed By: #### 1 4196-0, [id number], [place], 87153-0 ####[facility] LABIA [id number] [place] [address] [place] Immature granulocytes/100 WBC (Bld) 0.6 % Normal [facility] Comment on above: Order Comment: Speci men Type: BLOOD SPECIMENOrdering Facility: [facility] Address: [address] [place] [address] Performed By: #### 1 4196-0, [id number], STFRZAID, 15905-7 ####[facility] LABIA [id number] [place] [id number] [place] Lymphocytes (Bld) [#/Vol] 1.42 10*3/uL Normal 1.00-4.00 [facility] Comment on above: Order Comment: Speci men Type: BLOOD SPECIMENOrdering Facility: [facility] Address: [address] [place] [address] Performed By: #### 1 4196-0, [id number], STFRZAID, 32106-3 ####[facility] LABIA [id number] [place] [address] [place] Lymphocytes/100 WBC (Bld) 15.1 % Normal [facility] Comment on above: Order Comment: Speci men Type: BLOOD SPECIMENOrdering Facility: [facility] Address: [address] [place] [address] Performed By: #### 1 4196-0, [id number], [facility], 98708-3 ####[facility] LABIA [id number] [place] [address] [place] MCH (RBC) [Entitic mass] 28.6 pg Normal 26.0-34.0 [facility] Comment on above: Order Comment: Speci men Type: BLOOD SPECIMENOrdering Facility: [facility] Address: [address] [place] [address] Performed By: #### 1 4196-0, [id number], [facility] 47671-8 ####[facility] [id number] [place] [address] [place] MCHC (RBC) [Mass/Vol] 32.4 g/dL Normal 30.5-36.0 [facility] Comment on above: Order Comment: Speci men Type: BLOOD SPECIMENOrdering Facility: [facility] Address: [address] [place] [address] Performed By: #### 1 4196-0, [id number], [facility] 65152-5 ####[facility] [id number] [place] [address] [place] MCV (RBC) [Entitic vol] 88.2 fL Normal 80.0-100.0 [facility] Comment on above: Order Comment: Speci men Type: BLOOD SPECIMENOrdering Facility: [facility] Address: [address] [place] [address] Performed By: #### 1 4196-0, [id number], STFREV, 34401-2 ####[facility] LABCLIA [id number] [place] [id number] [place] Monocytes (Bld) [#/Vol] 0.52 10*3/uL Normal <0.87 [facility] Comment on above: Order Comment: Speci men Type: BLOOD SPECIMENOrdering Facility: [facility] Address: [address] [place] [address] Performed By: #### 1 4196-0, [id number], STFREV, 44801-1 ####[facility] LABCLIA [id number] [place] [address] [place] Monocytes/100 WBC (Bld) 5.5 % Normal [facility] Comment on above: Order Comment: Speci men Type: BLOOD SPECIMENOrdering Facility: [facility] Address: [address] [place] [address] Performed By: #### 1 4196-0, [id number], STFREV, 36476-4 ####[facility] LABCLIA [id number] [place] [address] [place] Neutrophils (Bld) [#/Vol] 7.33 10*3/uL Normal 1.45-7.50 [facility] Comment on above: Order Comment: Speci men Type: BLOOD SPECIMENOrdering Facility: [facility] Address: [address] [place] [address] Performed By: #### 1 4196-0, [id number], STFREV, 19141-1 ####[facility] LABCLIA [id number] [place] [address] [place] Neutrophils/100 WBC (Bld) 77.8 % Normal [facility] Comment on above: Order Comment: Speci men Type: BLOOD SPECIMENOrdering Facility: [facility] Address: [address] [place] [address] Performed By: #### 1 4196-0, [id number], STFREV, 48740-0 ####[facility] LABCLIA [id number] [place] [id number] [place] Nucleated RBC (Bld) [#/Vol] 10*3/uL Normal <0.01 [facility] Comment on above: Order Comment: Speci men Type: BLOOD SPECIMENOrdering Facility: [facility] Address: [address] [place] [address] Performed By: #### 1 4196-0, [id number], STFREV, 12700-5 ####[facility] LABIA [id number] [place] [address] [place] Nucleated RBC/100 WBC (Bld) [Ratio] 0.0 /100 WBC Normal [facility] Comment on above: Order Comment: Speci men Type: BLOOD SPECIMENOrdering Facility: [facility] Address: [address] [place] [address] Performed By: #### 1 4196-0, [id number], STFREV, 87787-6 ####[facility] LABIA [id number] [place] [address] [place] Platelet mean volume (Bld) [Entitic vol] 9.8 fL Normal 9.0-12.7 [facility] Comment on above: Order Comment: Speci men Type: BLOOD SPECIMENOrdering Facility: [facility] Address: [address] [place] [address] Performed By: #### 1 4196-0, [id number], STFREV, 99110-4 ####[facility] LABIA [id number] [place] [id number] [place] Platelets (Bld) [#/Vol] 409 10*3/uL High 150-400 [facility] Comment on above: Order Comment: Speci men Type: BLOOD SPECIMENOrdering Facility: [facility] Address: [address] [place] [address] Performed By: #### 1 4196-0, [id number], STFREV, 22510-1 ####[facility] LABCLIA [id number] [place] [id number] [place] RBC (Bld) [#/Vol] 3.99 10*6/uL Normal 3.90-5.20 [facility] Comment on above: Order Comment: Speci men Type: BLOOD SPECIMENOrdering Facility: [facility] Address: [address] [place] [address] Performed By: #### 1 4196-0, [id number], STFREV, 24500-9 ####[facility] LABIA [id number] [place] [address] [place] WBC (Bld) [#/Vol] 9.43 10*3/uL Normal 3.70-11.00 [facility] Comment on above: Order Comment: Speci men Type: BLOOD SPECIMENOrdering Facility: [facility] Address: [address] [place] [address] Performed By: #### 1 4196-0, [id number], STFREV, 60261-7 ####[facility] LABIA [id number] [place] [address] [place] CNOVSPon 09-17-2024 CNOVS Visit (SP) Office ([facility]MAST) YUSUF MEDINA ([id number]) 1935 F [address] Date Time Provider Department 09/17/24 3:10 PM GRUPO MENDEZ HEMLUL During your visit today, we recorded the following information about you: Pulse Respiration Blood pressure Weight 92/minute 16/minute 166/88 52.2 kg Grupo Mendez MD 09/24/2024 3:38 AM Signed Consultation requested by Dr. Migdalia rCamer for an opinion regarding leukocytosis. My final recommendations will be communicated back to the requesting physician by way of shared Medical record or letter to requesting physician via US mail. Presenting complaint: Patient Yusuf Medina was sent to my office to be evaluated for leukocytosis. ASSESSMENT: (G68.938) Leukocytosis, unspecified type (primary encounter diagnosis) Comment: [...] L REMV CATARACT EXTRACAP,INSERT LENS Bilateral 2020 [facility] FAMILY HISTORY Problem Relation Age of [...] as needed for sedation. blood sugar diagnostic ([employer]UCH ULTRA TEST) test strip Test blood sugar once daily glipiZIDE (GLUCOTROL XL) 2.5 mg 24 hr tablet TAKE 1 TABLET BY MOUTH ONCE DAILY lisinopril-hydroCHLORO thiazide (ZESTORETIC) 20-25 mg per tablet Take 1 tablet by mouth once daily. pioglitazone (more content not included)... Normal [facility] COPPER BLOODon 09-17-2024 Copper [Mass/Vol] 128 ug/dL Normal 80-155 [facility] Comment on above: Order Comment: Fan meade Type: BLOOD SPECIMEN [facility] Address: [address] [place] [address] Result Comment: This test was developed, and its performance characteristics determined by the [facility] Department of Pathology and Laboratory Medicine. It has not been cleared or approved by the FDA. The [facility] Department of Pathology and Laboratory Medicine is regulated under CLIA as qualified to perform high-complexity testing. This test is used for clinical purposes. It should not be regarded as investigational or for research. Performed By: #### 5 763-8 #### [facility] CLIA [id number] [address] [place] [address] [place] Centromere Ab IF Ql (S)on Centromere Ab Qn (S) <0.2 Normal <1.0 [facility] Comment on above: Order Comment: Fan meade Type: BLOOD SPECIMEN [facility] Address: [address] [place] [address] Result Comment: Anti -centromere antibody is used as in aid in diagnosis of systemic sclerosis. Clinical correlation is required. Test Methodology: Multiplex flow immunoassay. Performed By: #### 5 7021-8 #### [facility]ENN[facility]ER [facility] CLIA [id number] [address] [place] [address] [place] CENTROMERE AB QUAL Negative Normal Negative [facility] Comment on above: Order Comment: Speci halina Type: BLOOD SPECIMEN [facility] Address: [address] [place] [address] Performed By: #### 5 7021-8 #### CHAZMINDY [facility] CLIA [id number] [address] [place] [address] [place] Chromatin Ab Qnon 09-17-2024 CHROMATIN AB QUAL Negative Normal Negative [facility] Comment on above: Order Comment: Speci men Type: BLOOD SPECIMEN [facility] Address: [address] [place] [address] Performed By: #### 1 3964-2 #### [facility] CLIA [id number] [address] [place] [address] [place] Chromatin Ab SerPl-aCncon Chromatin Ab Qn <0.2 Normal <1.0 [facility] Comment on above: Order Comment: Speci men Type: BLOOD SPECIMEN [facility] Address: [address] [place] [address] Result Comment: Test Methodology: Multiplex flow immunoassay. Performed By: #### 1 3964-2 #### [facility] CLIA [id number] [address] [place] [address] [place] Cyclic citrullinated peptide IgG Qnon 09-17-2024 CCP ANTIBODY IGG QUALITATIVE Negative Normal Negative [facility] Comment on above: Order Comment: Speci men Type: BLOOD SPECIMEN [facility] Address: [address] [place] [address] Performed By: #### 5 763-8 #### [facility] CLIA [id number] [address] [place] [address] [place] DNA double strand Ab IA Qn ( S)on 09-17-2024 DNA ANTIBODY 175 IU/mL Normal <=200 [facility] Comment on above: Order Comment: Speci men Type: BLOOD SPECIMEN [facility] Address: [address] [place] [address] Result Comment: Nega tive: <200 IU/mL Equivocal: 201-300 IU/mL Moderate Positive: 301-800 IU/mL Strong Positive: >801 IU/mL Performed By: #### 5 7021-8 #### [facility] CLIA [id number] [address] [place] [address] [place] DNA ANTIBODY QUALITATIVE INTERPRETATION Negative Normal Negative [facility] Comment on above: Order Comment: Speci men Type: BLOOD SPECIMEN [facility] Address: [address] [place] [address] Performed By: #### 5 7021-8 #### [facility] CLIA [id number] [address] [place] [address] [place] EUFEMIA Jo1 Ab Ser-aCncon 2023 Nadege-1 extractable nuclear Ab Qn (S) <0.2 Normal <1.0 [facility] Comment on above: Order Comment: Speci men Type: BLOOD SPECIMEN [facility] Address: [address] [place] [address] Performed By: #### 5 7021-8 #### [facility] CLIA [id number] [address] [place] [address] [place] EUFEMIA TRUANT OFFICER Ab Ser-aCncon 2023 Ribonucleoprotein extractable nuclear Ab Qn (S) <0.2 Normal <1.0 [facility] Comment on above: Order Comment: Speci men Type: BLOOD SPECIMEN [facility] Address: [address] [place] [address] Performed By: #### 1 3964-2 #### [facility] CLIA [id number] [address] [place] [address] [place] Ribonucleoprotein extractable nuclear Ab Qn (S) 2.3 AI High <1.0 [facility] Comment on above: Order Comment: Speci men Type: BLOOD SPECIMEN [facility] Address: [address] [place] [address] Performed By: #### 5 7021-8 #### [facility] CLIA [id number] [address] [place] [address] [place] EUFEMIA SM IgG Ser-aCncon 2023 Bang extractable nuclear IgG Qn (S) <0.2 Normal <1.0 [facility] Comment on above: Order Comment: Speci men Type: BLOOD SPECIMEN [facility] Facility[facility] Address: [address] [place] [address] Performed By: #### 5 7021-8 #### [facility] CLIA [id number] [facility] [place] [address] [place] EUFEMIA SS-A Ab Ser-aCncon 09-17 Sjogrens syndrome-A extractable nuclear Ab Qn (S) <0.2 Normal <1.0 [facility] Comment on above: Order Comment: Speci men Type: BLOOD SPECIMEN Ordering Facility: [facility] Address: [address] [place] [address] Result Comment: Test Methodology: Multiplex flow immunoassay. Performed By: #### 5 7021-8 #### CHAZMINDY [facility] CLIA [id number] [address] [place] [address] [place] EUFEMIA SS-B Ab Ser-aCncon 09-17 Sjogrens syndrome-B extractable nuclear Ab Qn (S) <0.2 Normal <1.0 [facility] Comment on above: Order Comment: Speci halina Type: BLOOD SPECIMEN Ordering Facility: [facility] Address: [address] [place] [address] Result Comment: Anti -SSB (anti-La) antibody is used as an aid in diagnosis of a variety of systemic autoimmune diseases, especially for Sjogren's syndrome and systemic lupus erythematosus. Clinical correlation is required. Test Methodology: Multiplex flow immunoassay. Performed By: #### 1 3964-2 #### [facility] CLIA [id number] [address] [place] [address] [place] Ferritin SerPl-mCncon 2023 Ferritin [Mass/Vol] 59.9 ng/mL Normal 14.7-205.1 [facility] Comment on above: Order Comment: Speci men Type: BLOOD SPECIMENOrdering Facility: [facility] Address: [address] [place] [address] Performed By: #### 5 0190-8, 3084-1, 2276-4 ####[facility] [id number] [place] [address] [place] Folate SerPl-mCncon 09-17-20 24 Folate [Mass/Vol] 18.8 ng/mL Normal >4.7 [facility] Comment on above: Order Comment: Fan meade Type: BLOOD SPECIMEN Ordering Facility: [facility] Address: [address] [place] [address] Performed By: #### 2 132-9, 2284-8 #### [facility] CLIA [id number] [address] [place] [address] [place] Hcys SerPl-sCncon 09-17-2024 Homocysteine [Moles/Vol] 21.2 umol/L High <15.1 [facility] Comment on above: Order Comment: Fan meade Type: BLOOD SPECIMEN Ordering Facility: [facility] Address: [address] [place] [address] Performed By: #### 5 763-8 #### [facility] CLIA [id number] [address] [place] [address] [place] IMMUNOFIXATION SCREEN, SERUM on 09-17-2024 [...] monoclonal gammopathy. Clinical correlation is necessary. Normal [facility] Comment on above: Order Comment: Fan meade Type: BLOOD SPECIMENOrdering Facility: [facility] Address: [address] [place] [address] Performed By: #### I [facility] ####[facility] [id number] [address] [place] MPA RESULT A poorly defined region of restricted mobility is present that may represent an M protein. Abnormal No M protein is identified. [facility] Comment on above: Order Comment: Fan meade Type: BLOOD SPECIMENOrdering Facility: [facility] Address: [address] [place] [address] Performed By: #### I FES ####[facility] [id number] [place] [address] [place] STAFF REVIEW (MPA) Reviewed by Brianne Mosley M.D., Ph.D Normal [facility] Comment on above: Order Comment: Speci men Type: BLOOD SPECIMENOrdering Facility: [facility] Address: [address] [place] [address] Performed By: #### I FES ####[facility]IA [id number] [place] [address] [place] IMMUNOGLOBULINS,IGG,IGA,IGMo n 09-17-2024 IgA [Mass/Vol] 142 mg/dL Normal 70-400 [facility] Comment on above: Order Comment: Speci men Type: BLOOD SPECIMEN Ordering Facility: [facility] Address: [address] [place] [address] Performed By: #### 5 763-8 #### [facility] CLIA [id number] [address] [place] [address] [place] IgG [Mass/Vol] 750 mg/dL Normal 700-1600 [facility] Comment on above: Order Comment: Speci men Type: BLOOD SPECIMEN Ordering Facility: [facility] Address: [address] [place] [address] Performed By: #### 5 763-8 #### [facility] CLIA [id number] [address] [place] [address] [place] IgM [Mass/Vol] 23 mg/dL Low 40-230 [facility] Comment on above: Order Comment: Speci men Type: BLOOD SPECIMEN Ordering Facility: [facility] Address: [address] [place] [address] Performed By: #### 5 763-8 #### [facility] CLIA [id number] [address] [place] [address] [place] Iron and Iron binding capaci ty panelon 09-17-2024 Iron [Mass/Vol] 29 ug/dL Low 41-186 [facility] Comment on above: Order Comment: Speci men Type: BLOOD SPECIMENOrdering Facility: [facility] Address: [address] [place] [address] Performed By: #### 5 0190-8, 3084-1, 2276-4 ####[facility]IA [id number] [place] [address] [place] Iron binding capacity [Mass/Vol] 407 ug/dL High 232-386 [facility] Comment on above: Order Comment: Speci men Type: BLOOD SPECIMENOrdering Facility: [facility] Address: [address] [place] [address] Performed By: #### 5 0190-8, 3084-1, 6-4 ####[facility] [id number] [place] [address] [place] Iron/TIBC [Molar ratio] 7.1 % Low 15.0-57.0 [facility] Comment on above: Order Comment: Speci men Type: BLOOD SPECIMENOrdering Facility: [facility] Address: [address] [place] [address] Performed By: #### 5 0190-8, 3084-1, 6-4 ####[facility] [id number] [place] [address] [place] Nadege-1 extractable nuclear Ab Qn (S)on 09-17-2024 NADEGE 1 ANTIBODY QUAL Negative Normal Negative [facility] Comment on above: Order Comment: Speci men Type: BLOOD SPECIMEN Ordering Facility: [facility] Address: [address] [place] [address] Result Comment: Anti -NADEGE-1 antibody is used as an aid in diagnosis of polymyositis and dermatomyositis especially with pulmonary involvement. A negative result cannot rule out polymyositis or dermatomyositis. Clinical correlation is required. Test Methodology: Multiplex flow immunoassay. Performed By: #### 5 7021-8 #### [facility] CLIA [id number] [address] [place] [address] [place] KAPPA/BOWEN,FREE,SERon 2023 Immunoglobulin light chains.kappa.free (S) [Mass/Vol] 45.2 mg/L High 3.3-19.4 [facility] Comment on above: Order Comment: Fan meade Type: BLOOD SPECIMEN Ordering Facility: [facility] Address: [address] [place] [address] Result Comment: Rare ly, increased serum free light chains levels may not be detected or accurately quantified due to prozone phenomenon or in high viscosity samples using this immunoturbidimetric assay. Correlation with other laboratory results and clinical findings is recommended. The [place] Free Light Chain was performed using the Binding Site Optilite immunoturbidimetric method. Result obtained with different assay methods or kits cannot be used interchangeably. Performed By: #### 5 763-8 #### [facility] CLIA [id number] [address] [place] [address] [place] Immunoglobulin light chains.kappa/Immunoglob ulin light chains.lambda (S) [Mass ratio] 1.57 Normal 0.26-1.65 [facility] Comment on above: Order Comment: Fan meade Type: BLOOD SPECIMEN Ordering Facility: [facility] Address: [address] [place] [address] Performed By: #### 5 763-8 #### [facility] CLIA [id number] [address] [place] [address] [place] Immunoglobulin light chains.lambda.free [Mass/Vol] 28.8 mg/L High 5.7-26.3 [facility] Comment on above: Order Comment: Fan meade Type: BLOOD SPECIMEN Ordering Facility: [facility] Address: [address] [place] [address] Result Comment: Rare ly, increased serum free [...] interchangeably. Performed By: #### 5 763-8 #### [facility] CLIA [id number] [address] [place] [address] [place] Methylmalonate SerPl-sCncon 09-17-2024 Methylmalonate [Moles/Vol] 0.29 umol/L Normal <=0.40 [facility] Comment on above: Order Comment: Speci men Type: BLOOD SPECIMEN Ordering Facility: [facility] Address: [address] [place] [address] Result Comment: This test was developed, and its performance characteristics determined by the [facility] Department of Pathology and Laboratory Medicine. It has not been cleared or approved by the FDA. The [facility] Department of Pathology and Laboratory Medicine is regulated under CLIA as qualified to perform high-complexity testing. This test is used for clinical purposes. It should not be regarded as investigational or for research. Performed By: #### 1 3964-2 #### [facility] CLIA [id number] [address] [place] [address] [place] Nuclear Ab IA Ql (S)on 09-17 RUBEN SCR QUAL Positive Abnormal Negative [facility] Comment on above: Order Comment: Speci men Type: BLOOD SPECIMEN Ordering Facility: [facility] Address: [address] [place] [address] Result Comment: The qualitative antinuclear antibody screen test performed using the following antigens: dsDNA, Chromatin, Ribosomal P, SS-A 60, SS-A 52, SS-B, Sm, SmRNP, TRUANT OFFICER A, TRUANT OFFICER 68, Scl-70, Nadege-1, and Centromere B. Methodology: Multiplex flow immunoassay. Performed By: #### 1 3964-2 #### [facility] CLIA [id number] [address] [place] [address] [place] PATHOLOGIST INTERPRETATION C BC/DIFFon 09-17-2024 Nuclear Medicine Physician review Mckay (Unsp spec) [Interp] Reviewed by Dominga Johnson MD Normal [facility] Comment on above: Order Comment: Speci men Type: BLOOD SPECIMENOrdering Facility: [facility] Address: [address] [place] [address] Performed By: #### 1 4196-0, [id number], STFREV, 93834-0 ####[facility] [id number] [address] STATES OF [facility] STAFF REVIEW, CBCDIF Normal [facility] Comment on above: Order Comment: Speci men Type: BLOOD SPECIMENOrdering Facility: [facility] Address: [address] [place] [address] Result Comment: Norm ocytic anemia without polychromasia Thrombocytosis Performed By: #### 1 4196-0, [id number], STFREV, 52467-7 ####[facility] [id number] [address] [place] RBC MORPHOLOGYon 09-17-2024 Platelets Estimate (Bld) [#/Vol] Increased Normal [facility] Comment on above: Order Comment: Speci men Type: BLOOD SPECIMENOrdering Facility: [facility] Address: [address] [place] [address] Performed By: #### 1 4196-0, [id number], STFREV, 57974-9 ####[facility] [id number] [address] [place] RBC morphology finding Nom (Bld) Reviewed: unremarkable Normal [facility] Comment on above: Order Comment: Speci men Type: BLOOD SPECIMENOrdering Facility: [facility] Address: [address] [place] [address] Performed By: #### 1 4196-0, [id number], STFREV, 38354-9 ####[facility] [id number] [address] [place] RETICULOCYTE COUNTon 024 Reticulocytes (Bld) [#/Vol] 0.078 10*3/uL [facility] #on 09-17-2024 Reticulocytes (Bld) [#/Vol] 0.71648 10*3/uL Normal 0.018-0.100 [facility] Comment on above: Order Comment: Fan meade Type: BLOOD SPECIMENOrdering Facility: [facility] Address: [address] [place] [address] Performed By: #### 1 4196-0, [id number], [facility], 72293-6 ####[facility] [id number] [place] [address] [place] Reticulocytes (Bld) [#/Vol]o n 09-17-2024 Interpretation and review of laboratory results Normal [facility] Reticulocytes/100 RBC (Bld) 2.0 % 0.4 - 2.0 % [facility] Reticulocytes/100 RBC (Bld) 2.0 % Normal 0.4-2.0 [facility] Comment on above: Order Comment: Fan meade Type: BLOOD SPECIMENOrdering Facility: [facility] Address: [address] [place] [address] Performed By: #### 1 4196-0, [id number], [facility], 96481-4 ####[facility] [id number] [place] [address] [place] Ribonucleoprotein extractabl e nuclear Ab Qn (S)on 09-17-2024 ANTI-TRUANT OFFICER QUAL Positive Abnormal Negative [facility] Comment on above: Order Comment: Fan meade Type: BLOOD SPECIMEN Order[facility] Address: [address] [place] [address] Performed By: #### 5 7021-8 #### JENNIFER [facility] CLIA [id number] [address] [place] [address] [place] RIBOSOMAL TRUANT OFFICER QUAL Negative Normal Negative [facility] Comment on above: Order Comment: Fan meade Type: BLOOD SPECIMEN Ordering Facility: [facility] Address: [address] [place] [address] Result Comment: Anti -Ribosomal RNA (Ribosomal P) antibody is used as an aid in diagnosis of systemic autoimmune diseases especially systemic lupus erythematosus and mixed connective tissue disease. Cross-reactivity with Anti-bang antibody is not uncommon. Clinical correlation is required. Test Methodology: Multiplex flow immunoassay. Performed By: #### 1 3964-2 #### [facility] CLIA [id number] [address] [place], [place] [address] [place] [address] [place] SCL-70 extractable nuclear I gG IA Qn (S)on 09-17-2024 SCLERODERMA AB QUAL Negative Normal Negative [facility] Comment on above: Order Comment: Speci men Type: BLOOD SPECIMEN Ordering Facility: [facility] Address: [address] [place] [address] Performed By: #### 5 7021-8 #### [facility] CLIA [id number] [address] [place] [address] [place] SCLERODERMA IGG AB <0.2 Normal <1.0 [facility] Comment on above: Order Comment: Specleroy meade Type: BLOOD SPECIMEN Ordering Facility: [facility] Address: [address] [place] [address] Result Comment: Scl- 70/Scleroderma antibody test is used as an aid in diagnosis of systemic sclerosis especially the diffuse cutaneous form. A negative result cannot rule out systemic sclerosis. The final interpretation should consider clinical picture and other test results such as anti-centromere antibody. Test Methodology: Multiplex flow immunoassay. Performed By: #### 5 7021-8 #### [facility] CLIA [id number] [address] [place] [address] [place] Sjogrens syndrome-A extracta ble nuclear Ab Qn (S)on 09-17-2024 SSA ANTIBODY QUAL Negative Normal Negative [facility] Comment on above: Order Comment: Speci halina Type: BLOOD SPECIMEN Order[facility] Facility: [facility] Address: [address] [place] [address] Performed By: #### 5 7021-8 #### [facility] CLIA [id number] [address] [place] [address] [place] Sjogrens syndrome-B extracta ble nuclear Ab Qn (S)on 09-17-2024 SSB ANTIBODY QUAL Negative Normal Negative [facility] Comment on above: Order Comment: Speci halina Type: BLOOD SPECIMEN Ordering Facility: [facility] Address: [address] [place] [address] Performed By: #### 1 3964-2 #### [facility] CLIA [id number] [address] [place] [address] [place] Bang extractable nuclear Ig G Qn (S)on 09-17-2024 SM ANTIBODY QUAL Negative Normal Negative [facility] Comment on above: Order Comment: Katei halina Type: BLOOD SPECIMEN Ordering Facility: [facility] Address: [address] [place] [address] Result Comment: Anti -Sm (Bang) antibody is used as an aid in diagnosis of systemic lupus erythematosus and its presence is associated with renal disease. A negative result cannot rule out systemic lupus erythematosus. Clinical correlation is required. Test Methodology: Multiplex flow immunoassay. Performed By: #### 5 7021-8 #### JENNIFER [facility] CLIA [id number] [address] [place] [address] [place] Urate SerPl-mCncon 4 Urate [Mass/Vol] 5.6 mg/dL Normal 2.5-6.6 [facility] Comment on above: Order Comment: Katei halina Type: BLOOD SPECIMENOrdering Facility: [facility] Address: [address] [place] [address] Performed By: #### 5 0190-8, 3084-1, 2276-4 ####[facility] [id number] [place] [address] [place] Vit B12 SerPl-mCncon 024 Cobalamin (Vitamin B12) [Mass/Vol] 433 pg/mL Normal 232-1245 [facility] Comment on above: Order Comment: Katei men Type: BLOOD SPECIMEN Ordering Facility: [facility] Address: [address] [place] [address] Performed By: #### 2 132-9, 2284-8 #### [facility] CLIA [id number] [address] [place], [place] [address] [place] [address] [place] XR ANKLE 3V [...] Degenerative changes, calcaneal enthesophytes, and pes planus. Elephant Keeper: [facility] Transcribe Date/Time: Sep 18 2024 12:20P Dictated by : GERTRUDIS MONCADA MD This examination was interpreted and the report reviewed and electronically signed by: GERTRUDIS MONCADA MD on Sep 18 2024 12:22PM EST [id number] Normal [facility] XR Ankle - right AP and Late ral and obliqueon 09-17-2024 Radiology Study observation (narrative) [facility] Zinc SerPl-mCncon 09-17-2024 Zinc [Mass/Vol] 55 ug/dL Low 60-120 [facility] Comment on above: Order Comment: Speci men Type: BLOOD SPECIMEN Order[facility] Address: [address] [place] [address] Result Comment: This test was developed, and its performance characteristics determined by the [facility] Department of Pathology and Laboratory Medicine. It has not been cleared or approved by the FDA. The [facility] Department of Pathology and Laboratory Medicine is regulated under CLIA as qualified to perform high-complexity testing. This test is used for clinical purposes. It should not be regarded as investigational or for research. Performed By: #### 5 763-8 #### [facility] CLIA [id number] [address] [place] [address] [place] cCP IgG SerPl-aCncon 024 Cyclic citrullinated peptide IgG Qn <15 Normal <20 [facility] Comment on above: Order Comment: Speci men Type: BLOOD SPECIMEN [facility]ing Facility[facility] Address: [address] [place] [address] Performed By: #### 5 763-8 #### [facility] CLIA [id number] [address] [place] [address] [place] CNOVon 09-13-2024 CNOV Office Visit ([facility] ) YUSUF MEDINA ([id number]) 1935 [facility] Date Time Provider Department 09/13/24 10:00 AM MIGDALIA CRAMER [facility] During your visit today, we recorded the [...] changes, you (more content not included)... Normal [facility] Arti 08-21-2024 JACINTA Telephone ([facility]) CAROLYUSUF ([id number]) 1935 [address] [place] Date Time Provider Department 08/21/24 MIGDALIA CRAMER [facility] During your visit today, we recorded the [...] currently out of the office. Willie APRN.Agustina Blakcman 08/22/2024 8:09 AM Signed Patients sister in [...] patient by: CAREGIVER José Miguel Swanson [facility] Problem List As Of Date 08/21/2024 Noted [...] 12/07/2017 Cervic (more content not included)... Normal [facility] ALBUMIN/CREATININE RATIO, UR INEon 08-14-2024 Albumin DL <= 20 mg/L (U) [Mass/Vol] 387.7 mg/L Normal [facility] Comment on above: Order Comment: Speci men Type: URINE SPECIMENOrdering Facility: [facility] Address: [address] [place] [address] Performed By: #### U ACR, 2888-6 ####[facility] [id number] [place] [address] [place] Albumin/Creatinine (U) [Mass ratio] 483 mg/g High <30 [facility] Comment on above: Order Comment: Speci men Type: URINE SPECIMENOrdering Facility: [facility] Address: [address] [place] [address] Result Comment: Adul t Male and Female Nephrotic Criteria: <30 mg/g is considered normal to mildly increased 30-300 mg/g is considered moderately increased >300 mg/g is considered severely increased KDIGO. (2013). KDIGO 2012 Clinical Practice Guideline for the Evaluation and Management of Chronic Kidney Disease. Official Journal of the International Society of Nephrology, 3(1), 1-150. Performed By: #### U ACR, 2888-6 ####[facility] [id number] [place] [address] [place] Creatinine (U) [Mass/Vol] 80.2 mg/dL Normal 20.0-300.0 [facility] Comment on above: Order Comment: Speci men Type: URINE SPECIMENOrdering Facility: [facility] Address: [address] [place] [address] Performed By: #### U ACR, 2888-6 ####[facility] [id number] [place] [address] [place] Bacteria Ur Culton [...] technique or straight catheterization for???urine???collecti on. Normal [facility] Comment on above: Performed By: #### 6 30-4 ####[facility] [id number] [place] [address] [place] Basic metabolic 2000 panelon 08-14-2024 Anion gap [Moles/Vol] 13 mmol/L Normal 8-15 [facility] Comment on above: Order Comment: Speci men Type: BLOOD SPECIMEN [facility]ing Facility[facility] Address: [address] [place] [address] Performed By: #### 1 3964-2 #### [facility] CLIA [id number] [address] [place] [address] [place] Calcium [Mass/Vol] 9.9 mg/dL Normal 8.5-10.2 [facility] Comment on above: Order Comment: Speci men Type: BLOOD SPECIMEN Ordering Facility[facility] Address: [address] [place] [address] Performed By: #### 1 3964-2 #### [facility] CLIA [id number] [address] [place] [address] [place] Chloride [Moles/Vol] 96 mmol/L Low 98-107 [facility] Comment on above: Order Comment: Speci men Type: BLOOD SPECIMEN Ordering Facility: [facility] Address: [address] [place] [address] Performed By: #### 1 3964-2 #### [facility] CLIA [id number] [address] [place] [address] [place] CO2 [Moles/Vol] 24 mmol/L Normal 22-30 [facility] Comment on above: Order Comment: Speci men Type: BLOOD SPECIMEN Ordering Facility: [facility] Address: [address] [place] [address] Performed By: #### 1 3964-2 #### [facility] CLIA [id number] [address] [place] [address] [place] Creatinine [Mass/Vol] 0.89 mg/dL Normal 0.58-0.96 [facility] Comment on above: Order Comment: Fan meade Type: BLOOD SPECIMEN Ordering Facility: [facility] Address: [address] [place] [address] Performed By: #### 1 3964-2 #### [facility] CLIA [id number] [address] [place] [address] [place] Creatinine and Glomerular filtration rate.predicted panel (S/P/Bld) 62 mL/min/1.73m??? Normal >=60 [facility] Comment on above: Order Comment: Fan meade Type: BLOOD SPECIMEN Ordering Facility: [facility] Address: [address] [place] [address] Result Comment: Hilda mated Glomerular Filtration Rate [...] GFR. Performed By: #### 1 3964-2 #### [facility] CLIA [id number] [address] [place] [address] [place] Glucose [Mass/Vol] 245 mg/dL High 74-99 [facility] Comment on above: Order Comment: Fan meade Type: BLOOD SPECIMEN Ordering Facility: [facility] Address: [address] [place] [address] Result Comment: The [place] Diabetes Association (ADA) provides guidance for cutoff [...] Standards of Medical Care in Diabetes 2016, [place] [employer] Association. Diabetes Care. 2016.39(Suppl 1). Performed By: #### 1 3964-2 #### [facility] CLIA [id number] [address] [place] [address] [place] Potassium [Moles/Vol] 4.9 mmol/L Normal 3.7-5.1 [facility] Comment on above: Order Comment: Fan meade Type: BLOOD SPECIMEN Ordering Facility: [facility] Address: [address] [place] [address] Performed By: #### 1 3964-2 #### [facility] CLIA [id number] [address] [place] [address] [place] Sodium [Moles/Vol] 133 mmol/L Low 136-144 [facility] Comment on above: Order Comment: Fan meade Type: BLOOD SPECIMEN Ordering Facility: [facility] Address: [address] [place] [address] Performed By: #### 1 3964-2 #### [facility] CLIA [id number] [address] [place] [address] [place] Urea nitrogen [Mass/Vol] 29 mg/dL High 7-21 [facility] Comment on above: Order Comment: Fan meade Type: BLOOD SPECIMEN Ordering Facility: [facility] Address: [address] [place] [address] Performed By: #### 1 3964-2 #### [facility] CLIA [id number] [address] [place] [address] [place] CBC W Ordered Manual Differe ntial panel (Bld)on 08-14-2024 Basophils (Bld) [#/Vol] 0.05 10*3/uL Normal <0.11 [facility] Comment on above: Order Comment: Speci men Type: BLOOD SPECIMENOrdering Facility: [facility] Address: [address] [place] [address] Performed By: #### 5 7782-5, 4537-7, STFREV ####[facility] [id number] [facility] [place] [address] [place] Basophils/100 WBC (Bld) 0.4 % Normal [facility] Comment on above: Order Comment: Speci men Type: BLOOD SPECIMENOrdering Facility: [facility] Address: [address] [place] [address] Performed By: #### 5 7782-5, 4537-7, STFREV ####[facility] [id number] [place] [address] [place] Differential cell count method Nom (Bld) Auto Normal [facility] Comment on above: Order Comment: Speci men Type: BLOOD SPECIMENOrdering Facility: [facility] Address: [address] [place] [address] Performed By: #### 5 7782-5, 4537-7, STFREV ####[facility] [id number] [place] [address] [place] Eosinophils (Bld) [#/Vol] 0.04 10*3/uL Normal <0.46 [facility] Comment on above: Order Comment: Speci men Type: BLOOD SPECIMENOrdering Facility: [facility] Address: [address] [place] [address] Performed By: #### 5 7782-5, 4537-7, STFREV ####[facility] [id number] [facility] [place] [address] [place] Eosinophils/100 WBC (Bld) 0.3 % Normal [facility] Comment on above: Order Comment: Speci men Type: BLOOD SPECIMENOrdering Facility: [facility] Address: [address] [place] [address] Performed By: #### 5 7782-5, 4537-7, STFRZAID ####[facility] [id number] [place] [address] [place] Erythrocyte distribution width (RBC) [Ratio] 14.9 % Normal 11.5-15.0 [facility] Comment on above: Order Comment: Speci men Type: BLOOD SPECIMENOrdering Facility: [facility] Address: [address] [place] [address] Performed By: #### 5 7782-5, 4537-7, STFRZAID ####[facility] [id number] [place] [address] [place] Hematocrit (Bld) [Volume fraction] 35.2 % Low 36.0-46.0 [facility] Comment on above: Order Comment: Speci men Type: BLOOD SPECIMENOrdering Facility: [facility] Address: [address] [place] [address] Performed By: #### 5 7782-5, 4537-7, STFRZAID ####[facility]IA [id number] [place] [address] [place] Hemoglobin (Bld) [Mass/Vol] 11.2 g/dL Low 11.5-15.5 [facility] Comment on above: Order Comment: Speci men Type: BLOOD SPECIMENOrdering Facility: [facility] Address: [address] [place] [address] Performed By: #### 5 7782-5, 4537-7, STFREV ####[facility]IA [id number] [place] [address] [place] Immature granulocytes (Bld) [#/Vol] 0.06 10*3/uL Normal <0.10 [facility] Comment on above: Order Comment: Speci men Type: BLOOD SPECIMENOrdering Facility: [facility] Address: [address] [place] [address] Performed By: #### 5 7782-5, 4537-7, STFREV ####[facility]IA [id number] [place] [address] [place] Immature granulocytes/100 WBC (Bld) 0.5 % Normal [facility] Comment on above: Order Comment: Speci men Type: BLOOD SPECIMENOrdering Facility: [facility] Address: [address] [place] [address] Performed By: #### 5 7782-5, 4537-7, STFREV ####[facility]IA [id number] [place] [address] [place] Lymphocytes (Bld) [#/Vol] 1.40 10*3/uL Normal 1.00-4.00 [facility] Comment on above: Order Comment: Speci men Type: BLOOD SPECIMENOrdering Facility: [facility] Address: [address] [place] [address] Performed By: #### 5 7782-5, 4537-7, STFREV ####[facility]IA [id number] [place] [address] [place] Lymphocytes/100 WBC (Bld) 11.3 % Normal [facility] Comment on above: Order Comment: Speci men Type: BLOOD SPECIMENOrdering Facility: [facility] Address: [address] [place] [address] Performed By: #### 5 7782-5, 4537-7, STFREV ####[facility]IA [id number] [place] [address] [place] MCH (RBC) [Entitic mass] 28.4 pg Normal 26.0-34.0 [facility] Comment on above: Order Comment: Speci men Type: BLOOD SPECIMENOrdering Facility: [facility] Address: [address] [place] [address] Performed By: #### 5 7782-5, 4536-7, STFREV ####[facility]CLIA [id number] [place] [address] [place] MCHC (RBC) [Mass/Vol] 31.8 g/dL Normal 30.5-36.0 [facility] Comment on above: Order Comment: Speci men Type: BLOOD SPECIMENOrdering Facility: [facility] Address: [address] [place] [address] Performed By: #### 5 7782-5, 7, STFREV ####[facility]CLIA [id number] [place] [address] [place] MCV (RBC) [Entitic vol] 89.3 fL Normal 80.0-100.0 [facility] Comment on above: Order Comment: Speci men Type: BLOOD SPECIMENOrdering Facility: [facility] Address: [address] [place] [address] Performed By: #### 5 7782-5, 7, STFREV ####[facility]IA [id number] [place] [address] [place] Monocytes (Bld) [#/Vol] 0.83 10*3/uL Normal <0.87 [facility] Comment on above: Order Comment: Speci men Type: BLOOD SPECIMENOrdering Facility: [facility] Address: [address] [place] [address] Performed By: #### 5 7782-5, 7, STFREV ####[facility]CLIA [id number] [place] [address] [place] Monocytes/100 WBC (Bld) 6.7 % Normal [facility] Comment on above: Order Comment: Speci men Type: BLOOD SPECIMENOrdering Facility: [facility] Address: [address] [place] [address] Performed By: #### 5 7782-5, 7, STFREV ####[facility]CLIA [id number] [place] [address] [place] Neutrophils (Bld) [#/Vol] 10.03 10*3/uL High 1.45-7.50 [facility] Comment on above: Order Comment: Speci men Type: BLOOD SPECIMENOrdering Facility: [facility] Address: [address] [place] [address] Performed By: #### 5 7782-5, 4537-7, STFREV ####[facility]IA [id number] [place] [address] [place] Neutrophils/100 WBC (Bld) 80.8 % Normal [facility] Comment on above: Order Comment: Speci men Type: BLOOD SPECIMENOrdering Facility: [facility] Address: [address] [place] [address] Performed By: #### 5 7782-5, 4537-7, STFREV ####[facility]CLIA [id number] [place] [address] [place] Nucleated RBC (Bld) [#/Vol] 10*3/uL Normal <0.01 [facility] Comment on above: Order Comment: Speci men Type: BLOOD SPECIMENOrdering Facility: [facility] Address: [address] [place] [address] Performed By: #### 5 7782-5, 4537-7, STFREV ####[facility]IA [id number] [place] [address] [place] Nucleated RBC/100 WBC (Bld) [Ratio] 0.0 /100 WBC Normal [facility] Comment on above: Order Comment: Speci men Type: BLOOD SPECIMENOrdering Facility: [facility] Address: [address] [place] [address] Performed By: #### 5 7782-5, 4537-7, STFREV ####[facility]CLIA [id number] [address] [address] [place] Platelet mean volume (Bld) [Entitic vol] 10.2 fL Normal 9.0-12.7 [facility] Comment on above: Order Comment: Speci men Type: BLOOD SPECIMENOrdering Facility: [facility] Address: [address] [place] [address] Performed By: #### 5 7782-5, 4537-7, STFREV ####[facility]CLIA [id number] [place] [address] [place] Platelets (Bld) [#/Vol] 330 10*3/uL Normal 150-400 [facility] Comment on above: Order Comment: Speci men Type: BLOOD SPECIMENOrdering Facility: [facility] Address: [address] [place] [address] Performed By: #### 5 7782-5, 4537-7, STFREV ####[facility]CLIA [id number] [place] [address] [place] RBC (Bld) [#/Vol] 3.94 10*6/uL Normal 3.90-5.20 [facility] Comment on above: Order Comment: Speci men Type: BLOOD SPECIMENOrdering Facility: [facility] Address: [address] [place] [address] Performed By: #### 5 7782-5, 4537-7, STFREV ####[facility]CLIA [id number] [place] [id number] [place] WBC (Bld) [#/Vol] 12.41 10*3/uL High 3.70-11.00 [facility] Comment on above: Order Comment: Speci men Type: BLOOD SPECIMENOrdering Facility: [facility] Address: [address] [place] [address] Performed By: #### 5 7782-5, 4537-7, STFREV ####[facility]IA [id number] [address] [address] [place] CNOVon 08-14-2024 CNOV Office Visit ([facility] ) YUSUF MEDINA ([id number]) 1935 F [place] Date Time Provider Department 08/14/24 10:40 AM MIGDALIA CRAMER [facility] During your visit today, we recorded the [...] COMBINE WITH DICLOFENAC GEL blood sugar diagnostic (ViadeoTOUCH ULTRA TEST) test strip Test blood sugar [...] no acute (more content not included)... Normal [facility] CRP SerPl-ncon 08-14-2024 CRP [Mass/Vol] 7.8 mg/dL High <0.9 [facility] Comment on above: Order Comment: Speci men Type: BLOOD SPECIMEN Ordering Facility: [facility] Address: [address] [place] [address] Performed By: #### 1 3964-2 #### [facility] CLIA [id number] [address] [place], [place] [address] [address] [place] ESR Westergren method (Bld) [Velocity]on 08-14-2024 ESR (Bld) [Velocity] 40 mm/h High 0-20 [facility] Comment on above: Order Comment: Speci men Type: BLOOD SPECIMENOrdering Facility: [facility] Address: [address] [place] [address] Performed By: #### 5 7782-5, 4537-7, STFREV ####[facility]IA [id number] [place] [id number] [place] HbA1c (Bld)on 08-14-2024 Average glucose Estimated from glycated hemoglobin (Bld) [Mass/Vol] 197 mg/dL Normal [facility] Comment on above: Order Comment: Speci men Type: BLOOD SPECIMENOrdering Facility: [facility] Address: [address] [place] [address] Result Comment: eAG: (Estimated average glucose) is a calculated value from HgbA1c and is administrative representative of the average blood glucose level in the last 2-3 month period. Performed By: #### 5 5454-3 ####[facility] [id number] [place] [address] [place] HbA1c (Bld) [Mass fraction] 8.5 % High 4.3-5.6 [facility] Comment on above: Order Comment: Speci men Type: BLOOD SPECIMENOrdering Facility: [facility] Address: [address] [place] [address] Result Comment: [place] Diabetes Association guidelines indicate that patients with HgbA1c in the range 5.7-6.4% are at increased risk for development of diabetes, and intervention by lifestyle modification may be beneficial. HgbA1c greater or equal to 6.5% is considered diagnostic of diabetes. Performed By: #### 5 5454-3 ####[facility]IA [id number] [place] [address] [place] PATHOLOGIST INTERPRETATION C BC/DIFFon 08-14-2024 Nuclear Medicine Physician review Mckay (Unsp spec) [Interp] No review performed. Normal [facility] Comment on above: Order Comment: Speci men Type: BLOOD SPECIMENOrdering Facility: [facility] Address: [address] [place] [address] Performed By: #### 5 7782-5, 4537-7, STFREV ####[facility]CLIA [id number] [place] [address] [place] STAFF REVIEW, CBCDIF Normal [facility] Comment on above: Order Comment: Speci men Type: BLOOD SPECIMENOrdering Facility: [facility] Address: [address] [place] [address] Result Comment: The Pathologist Interpretation on this sample was cancelled because the hematology analyzer did not flag any parameters as requiring manual review. If there is a specific clinical concern for which you would like a pathologist to review the blood smear, please call Lab Client Services within 28 days. Performed By: #### 5 7782-5, 4537-7, RADHA ####[facility]IA [id number] [place] [address] [place] PROTEIN ELECTROPHORESIS SERU M (P)on 08-14-2024 Albumin [Mass/Vol] 3.80 g/dL Normal 3.43-5.41 [facility] Comment on above: Order Comment: Speci men Type: BLOOD SPECIMEN [facility] Address: [address] [place] [address] Performed By: #### 5 763-8 #### [facility] CLIA [id number] [address] [place] [address] [place] Alpha 1 globulin Elph [Mass/Vol] 0.46 g/dL High 0.18-0.43 [facility] Comment on above: Order Comment: Speci men Type: BLOOD SPECIMEN [facility] Address: [address] [place] [address] Performed By: #### 5 763-8 #### [facility] CLIA [id number] [address] [place] [address] [place] Alpha 2 globulin Elph [Mass/Vol] 1.03 g/dL High 0.42-0.98 [facility] Comment on above: Order Comment: Speci men Type: BLOOD SPECIMEN Ordering Facility[facility] Address: [address] [place] [address] Performed By: #### 5 763-8 #### [facility] CLIA [id number] [address] [place] [address] [place] Beta globulin Elph [Mass/Vol] 0.84 g/dL Normal 0.61-1.17 [facility] Comment on above: Order Comment: Fan meade Type: BLOOD SPECIMEN [facility] Address: [address] [place] [address] Performed By: #### 5 763-8 #### [facility] CLIA [id number] [address] [place] [address] [place] Gamma globulin Elph [Mass/Vol] 0.58 g/dL Normal 0.53-1.51 [facility] Comment on above: Order Comment: Fan meade Type: BLOOD SPECIMEN [facility] Address: [address] [place] [address] Performed By: #### 5 763-8 #### [facility] CLIA [id number] [address] [place] [address] [place] INTERPRETATION COMMENT FOR PROTEIN ELECTROPHORESIS The atypical region is relatively poorly defined and may represent an unusual presentation of polyclonal immunoglobulins, but cannot rule out the presence of a low level M protein. If clinically indicated, monoclonal protein analysis and serum free light chain analysis are suggested to evaluate further for monoclonal gammopathy. Normal [facility] Comment on above: Order Comment: Fan meade Type: BLOOD SPECIMEN Ordering Facility: [facility] Address: [address] [place] [address] Performed By: #### 5 763-8 #### [facility] CLIA [id number] [address] [place] [address] [place] M-PROTEIN LOCATION Normal [facility] Comment on above: Order Comment: Fan meade Type: BLOOD SPECIMEN [facility] Facility[facility] Address: [address] [place] [address] Result Comment: Not Applicable. Performed By: #### 5 763-8 #### [facility] CLIA [id number] [address] [place] [address] [place] Protein Fractions [Interp] An atypical region of restricted mobility is identified on protein electrophoresis. Abnormal No definitive M protein is identified on protein electrophore sis. [facility] Comment on above: Order Comment: Speci men Type: BLOOD SPECIMEN Order[facility] Facility[facility] Address: [address] [place] [address] Performed By: #### 5 763-8 #### [facility] CLIA [id number] [address] [place] [address] [place] Protein.monoclonal Elph [Mass/Vol] 0.00 g/dL Normal <=0.00 [facility] Comment on above: Order Comment: Speci men Type: BLOOD SPECIMEN Ordering Facility: [facility] Address: [address] [place] [address] Performed By: #### 5 763-8 #### [facility] CLIA [id number] [address] [place] [address] [place] SPE STAFF REVIEW Reviewed by Tanisha Sanchez MD [facility] Comment on above: Order Comment: Speci men Type: BLOOD SPECIMEN Ordering Facility: [facility] Address: [address] [place] [address] Performed By: #### 5 763-8 #### [facility] CLIA [id number] [address] [place] [address] [place] Prot SerPl-mCncon 08-14-2024 Protein [Mass/Vol] 6.7 g/dL Normal 6.3-8.0 [facility] Comment on above: Order Comment: Speci men Type: BLOOD SPECIMEN [facility] Address: [address] [place] [address] Performed By: #### 1 3964-2 #### [facility] CLIA [id number] [address] [place] [address] [place] Prot Ur-mCncon 08-14-2024 Protein (U) [Mass/Vol] 78 mg/dL High 0-20 [facility] Comment on above: Order Comment: Speci men Type: URINE SPECIMENOrdering Facility: [facility] Address: [address] [place] [address] Performed By: #### U ACR, 2888-6 ####[facility]IA [id number] [place] [address] [place] TSH SerPl-aCncon 08-14-2024 TSH Qn 1.120 m[IU]/L Normal 0.270-4.200 [facility] Comment on above: Order Comment: Speci men Type: BLOOD SPECIMEN [facility] Address: [address] [place] [address] Performed By: #### 1 3964-2 #### [facility] CLIA [id number] [address] [place] [address] [place] URINALYSIS, DIPSTICK ONLYon 08-14-2024 Bilirubin Ql (U) Negative Normal Negative [facility] Comment on above: Order Comment: Speci men Type: BLOOD SPECIMEN [facility] Address: [address] [place] [address] Performed By: #### 2 132-9, 8 #### [facility] CLIA [id number] [address] [place] [address] [place] Clarity (Unsp spec) Clear Normal Clear [facility] Comment on above: Order Comment: Speci men Type: BLOOD SPECIMEN [facility] Address: [address] [place] [address] Performed By: #### 2 132-9, 2283-8 #### [facility] CLIA [id number] [address] [place] [address] [place] Color (U) Yellow Normal Yellow [facility] Comment on above: Order Comment: Speci men Type: BLOOD SPECIMEN [facility] Address: [address] [place] [address] Performed By: #### 2 132-9, 2283-8 #### [facility] CLIA [id number] [place], [place] [address] [place] Glucose Test strip (U) [Mass/Vol] 1+ Abnormal Negative [facility] Comment on above: Order Comment: Speci men Type: BLOOD SPECIMEN Ordering Facility: [facility] Address: [address] [place] [address] Performed By: #### 2 132-9, 8 #### [facility] CLIA [id number] [address] [place] [address] [place] Hemoglobin Ql (U) Negative Normal Negative [facility] Comment on above: Order Comment: Speci men Type: BLOOD SPECIMEN Ordering Facility: [facility] Address: [address] [place] [address] Performed By: #### 2 132-9, 8 #### [facility] CLIA [id number] [address] [place] [address] [place] Ketones Ql (U) Negative Normal Negative [facility] Comment on above: Order Comment: Speci men Type: BLOOD SPECIMEN Ordering Facility: [facility] Address: [address] [place] [address] Performed By: #### 2 132-9, 8 #### [facility] CLIA [id number] [address] [place] [address] [place] Leukocyte esterase Test strip Ql (U) Negative Normal Negative [facility] Comment on above: Order Comment: Speci men Type: BLOOD SPECIMEN Ordering Facility: [facility] Address: [address] [place], [place] [address] Performed By: #### 2 132-9, 8 #### [facility] CLIA [id number] [address] [place] [address] [place] Nitrite Ql (U) Negative Normal Negative [facility] Comment on above: Order Comment: Speci men Type: BLOOD SPECIMEN Ordering Facility: [facility] Address: [address] [place] [address] Performed By: #### 2 132-9, 8 #### [facility] CLIA [id number] [address] [place] [address] [place] pH (U) 6.5 [pH] Normal <8.5 [facility] Comment on above: Order Comment: Speci men Type: BLOOD SPECIMEN Ordering Facility: [facility] Address: [address] [place] [address] Performed By: #### 2 132-9, 2284-06 #### [facility] CLIA [id number] [address] [place] [address] [place] Protein (U) [Mass/Vol] 2+ Abnormal Negative [facility] Comment on above: Order Comment: Speci men Type: BLOOD SPECIMEN Ordering Facility: [facility] Address: [address] [place] [address] Performed By: #### 2 132-9, 2284-06 #### [facility] CLIA [id number] [address] [place] [address] [place] Specific gravity (U) [Rel density] 1.020 Normal 1.005-1.030 [facility] Comment on above: Order Comment: Speci men Type: BLOOD SPECIMEN Ordering Facility: [facility] Address: [address] [place] [address] Performed By: #### 2 132-9, 2284-06 #### [facility] CLIA [id number] [address] [place] [address] [place] Urobilinogen Ql (U) 1.0 EU/dL Normal 0.2-1.0 EU/dL [facility] Comment on above: Order Comment: Speci men Type: BLOOD SPECIMEN Ordering Facility: [facility] Address: [address] [place] [address] Performed By: #### 2 132-9, 8 #### [facility] CLIA [id number] [address] [place] [address] [place] URINE PROTEIN ELECTROPHORESI S RANDOM (P)on 08-14-2024 Albumin Elph (U) [Mass fraction] 69.11 % Normal [facility] Comment on above: Order Comment: Speci men Type: URINE SPECIMENOrdering Facility: [facility] Address: [address] [place] [address] Performed By: #### L [id number] ####[facility]IA [id number] [place] [address] [place] Alpha 1 globulin Elph (U) [Mass fraction] 7.87 % Normal [facility] Comment on above: Order Comment: Speci men Type: URINE SPECIMENOrdering Facility: [facility] Address: [address] [place] [address] Performed By: #### L [id number] ####[facility] [id number] [place] [address] [place] Alpha 2 globulin Elph (U) [Mass fraction] 6.40 % Normal [facility] Comment on above: Order Comment: Speci men Type: URINE SPECIMENOrdering Facility: [facility] Address: [address] [place] [address] Performed By: #### L [id number] ####[facility]IA [id number] [place] [address] [place] Beta globulin Elph (U) [Mass fraction] 11.20 % Normal [facility] Comment on above: Order Comment: Speci men Type: URINE SPECIMENOrdering Facility: [facility] Address: [address] [place] [address] Performed By: #### L [id number] ####[facility]IA [id number] [place] [address] [place] Gamma globulin Elph (U) [Mass fraction] 5.42 % Normal [facility] Comment on above: Order Comment: Speci men Type: URINE SPECIMENOrdering Facility: [facility] Address: [address] [place] [address] Performed By: #### L [id number] ####[facility]IA [id number] [place] [address] [place] Protein Fractions Elph Mckay (U) [Interp] No definitive M protein is identified on protein electrophoresis. Normal No definitive M protein is identified on protein electrophore sis. [facility] Comment on above: Order Comment: Speci men Type: URINE SPECIMENOrdering Facility: [facility] Address: [address] [place] [address] Performed By: #### L [id number] ####[facility]IA [id number] [address] [place] STAFF REVIEW (URINE ELECTRO) Reviewed by Brianne Mosley M.D., Ph.D Normal [facility] Comment on above: Order Comment: Speci men Type: URINE SPECIMENOrdering Facility: [facility] Address: [address] [place] [address] Performed By: #### L [id number] ####[facility] [id number] [address] [place] ALLIED HEALTHon 08-13-2024 ALLIED HEALTH HNO ID: [id number] Author: TYESHA TERRELL RT(R) Service: Radiology Author [...] PATIENT PRESENTS WITH AN 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: No RADIOLOGY DEPARTMENT: General X-ray: Exam(s) Completed: Chest X-Ray PERIPHERAL IV DATA: Not applicable SIGNED BY: Tyesha Terrell RT(R) August 13, 2024 3:49 PM Normal [facility] CBC W Auto Differential pane l (Bld)on 08-13-2024 Basophils (Bld) [#/Vol] 0.03 10*3/uL Normal <0.11 [facility] Comment on above: Order Comment: Speci men Type: BLOOD SPECIMEN [facility] Address: [address] [place] [address] Performed By: #### 5 7021-8 #### [facility] CLIA [id number] [address] [place] [address] [place] Basophils/100 WBC (Bld) 0.2 % Normal [facility] Comment on above: Order Comment: Speci men Type: BLOOD SPECIMEN [facility] Address: [address] [place] [address] Performed By: #### 5 7021-8 #### [facility] CLIA [id number] [address] [place] [address] [place] Differential cell count method Nom (Bld) Auto Normal [facility] Comment on above: Order Comment: Speci men Type: BLOOD SPECIMEN [facility] Address: [address] [place] [address] Performed By: #### 5 7021-8 #### [facility] CLIA [id number] [address] [place] [address] [place] Eosinophils (Bld) [#/Vol] 10*3/uL Normal <0.46 [facility] Comment on above: Order Comment: Speci men Type: BLOOD SPECIMEN [facility] Address: [address] [place] [address] Performed By: #### 5 7021-8 #### [facility] CLIA [id number] [address] [place] [address] [place] Eosinophils/100 WBC (Bld) 0.1 % Normal [facility] Comment on above: Order Comment: Speci men Type: BLOOD SPECIMEN [facility] Address: [address] [place] [address] Performed By: #### 5 7021-8 #### [facility] CLIA [id number] [address] [place] [address] [place] Erythrocyte distribution width (RBC) [Ratio] 14.6 % Normal 11.5-15.0 [facility] Comment on above: Order Comment: Speci men Type: BLOOD SPECIMEN [facility] Address: [address] [place] [address] Performed By: #### 5 7021-8 #### [facility] CLIA [id number] [address] [place] [address] [place] Hematocrit (Bld) [Volume fraction] 33.5 % Low 36.0-46.0 [facility] Comment on above: Order Comment: Speci men Type: BLOOD SPECIMEN [facility] Address: [address] [place] [address] Performed By: #### 5 7021-8 #### [facility] CLIA [id number] [address] [place] [address] [place] Hemoglobin (Bld) [Mass/Vol] 10.9 g/dL Low 11.5-15.5 [facility] Comment on above: Order Comment: Speci men Type: BLOOD SPECIMEN [facility] Address: [address] [place] [address] Performed By: #### 5 7021-8 #### [facility] CLIA [id number] [address] [place] [address] [place] Immature granulocytes (Bld) [#/Vol] 0.09 10*3/uL Normal <0.10 [facility] Comment on above: Order Comment: Speci men Type: BLOOD SPECIMEN [facility] Address: [address] [place] [address] Performed By: #### 5 7021-8 #### [facility] CLIA [id number] [address] [place] [address] STATES [facility] Immature granulocytes/100 WBC (Bld) 0.5 % Normal [facility] Comment on above: Order Comment: Speci men Type: BLOOD SPECIMEN [facility] Address: [address] [place] [address] Performed By: #### 5 7021-8 #### [facility] CLIA [id number] [address] [place] [address] [place] Lymphocytes (Bld) [#/Vol] 0.91 10*3/uL Low 1.00-4.00 [facility] Comment on above: Order Comment: Speci men Type: BLOOD SPECIMEN [facility] Address: [address] [place] [address] Performed By: #### 5 7021-8 #### [facility] CLIA [id number] [address] [place] [address] STATES [facility] Lymphocytes/100 WBC (Bld) 5.3 % Normal [facility] Comment on above: Order Comment: Speci men Type: BLOOD SPECIMEN [facility] Address: [address] [place] [address] Performed By: #### 5 7021-8 #### [facility] CLIA [id number] [address] [place] [address] [place] MCH (RBC) [Entitic mass] 28.6 pg Normal 26.0-34.0 [facility] Comment on above: Order Comment: Speci men Type: BLOOD SPECIMEN [facility] Address: [address] [place] [address] Performed By: #### 5 7021-8 #### [facility] CLIA [id number] [address] [place] [address] [place] MCHC (RBC) [Mass/Vol] 32.5 g/dL Normal 30.5-36.0 [facility] Comment on above: Order Comment: Speci men Type: BLOOD SPECIMEN [facility] Address: [address] [place] [address] Performed By: #### 5 7021-8 #### [facility] CLIA [id number] [address] [place] [address] [place] MCV (RBC) [Entitic vol] 87.9 fL Normal 80.0-100.0 [facility] Comment on above: Order Comment: Speci men Type: BLOOD SPECIMEN [facility] Address: [address] [place] [address] Performed By: #### 5 7021-8 #### [facility] CLIA [id number] [address] [place] [address] [place] Monocytes (Bld) [#/Vol] 0.91 10*3/uL High <0.87 [facility] Comment on above: Order Comment: Speci men Type: BLOOD SPECIMEN [facility] Address: [address] [place] [address] Performed By: #### 5 7021-8 #### [facility] CLIA [id number] [address] [place] [address] [place] Monocytes/100 WBC (Bld) 5.3 % Normal [facility] Comment on above: Order Comment: Speci men Type: BLOOD SPECIMEN [facility] Address: [address] [place] [address] Performed By: #### 5 7021-8 #### [facility] CLIA [id number] [address] [place] [address] [place] Neutrophils (Bld) [#/Vol] 15.20 10*3/uL High 1.45-7.50 [facility] Comment on above: Order Comment: Speci men Type: BLOOD SPECIMEN [facility] Address: [address] [place] [address] Performed By: #### 5 7021-8 #### [facility] CLIA [id number] [address] [place] [address] [place] Neutrophils/100 WBC (Bld) 88.6 % Normal [facility] Comment on above: Order Comment: Speci men Type: BLOOD SPECIMEN [facility] Address: [address] [place] [address] Performed By: #### 5 7021-8 #### [facility] CLIA [id number] [address] [place] [address] [place] Nucleated RBC (Bld) [#/Vol] 10*3/uL Normal <0.01 [facility] Comment on above: Order Comment: Speci men Type: BLOOD SPECIMEN [facility] Address: [address] [place] [address] Performed By: #### 5 7021-8 #### [facility] CLIA [id number] [address] [place] [address] [place] Nucleated RBC/100 WBC (Bld) [Ratio] 0.0 /100 WBC Normal [facility] Comment on above: Order Comment: Speci men Type: BLOOD SPECIMEN [facility] Address: [address] [place] [address] Performed By: #### 5 7021-8 #### [facility] CLIA [id number] [address] [place] [address] [place] Platelet mean volume (Bld) [Entitic vol] 9.0 fL Normal 9.0-12.7 [facility] Comment on above: Order Comment: Speci men Type: BLOOD SPECIMEN [facility] Address: [address] [place] [address] Performed By: #### 5 7021-8 #### [facility] CLIA [id number] [address] [place] [address] [place] Platelets (Bld) [#/Vol] 321 10*3/uL Normal 150-400 [facility] Comment on above: Order Comment: Speci men Type: BLOOD SPECIMEN [facility] Address: [address] [place] [address] Performed By: #### 5 7021-8 #### [facility] CLIA [id number] [facility] [place] [address] [place] RBC (Bld) [#/Vol] 3.81 10*6/uL Low 3.90-5.20 [facility] Comment on above: Order Comment: Speci men Type: BLOOD SPECIMEN [facility] Address: [address] [place] [address] Performed By: #### 5 7021-8 #### [facility] CLIA [id number] [facility] [place] [address] [place] WBC (Bld) [#/Vol] 17.15 10*3/uL High 3.70-11.00 [facility] Comment on above: Order Comment: Speci men Type: BLOOD SPECIMEN [facility] Address: [address] [place] [address] Performed By: #### 5 7021-8 #### [facility] CLIA [id number] [address] [place] [address] [place] CK SerPl-cCncon 08-13-2024 CK [Catalytic activity/Vol] 56 U/L Normal 42-196 [facility] Comment on above: Order Comment: Speci men Type: BLOOD SPECIMEN [facility] Address: [address] [place] [address] Performed By: #### 5 7021-8 #### [facility] CLIA [id number] [address] [place] [address] [place] Comprehensive metabolic 2000 panelon 08-13-2024 Albumin [Mass/Vol] 4.0 g/dL Normal 3.9-4.9 [facility] Comment on above: Order Comment: Speci men Type: BLOOD SPECIMEN [facility] Address: [address] [place] [address] Performed By: #### 5 763-8 #### [facility] CLIA [id number] [address] [place] [address] [place] ALP [Catalytic activity/Vol] 99 U/L Normal 34-123 [facility] Comment on above: Order Comment: Speci men Type: BLOOD SPECIMEN [facility] Address: [address] [place] [address] Performed By: #### 5 763-8 #### [facility] CLIA [id number] [address] [place] [address] [place] ALT [Catalytic activity/Vol] 15 U/L Normal 7-38 [facility] Comment on above: Order Comment: Speci men Type: BLOOD SPECIMEN [facility] Address: [address] [place] [address] Performed By: #### 5 763-8 #### [facility] CLIA [id number] [address] [place] [address] [place] Anion gap [Moles/Vol] 14 mmol/L Normal 8-15 [facility] Comment on above: Order Comment: Speci men Type: BLOOD SPECIMEN [facility] Address: [address] [place] [address] Performed By: #### 5 763-8 #### [facility] CLIA [id number] [address] [place] [address] [place] AST [Catalytic activity/Vol] 18 U/L Normal 13-35 [facility] Comment on above: Order Comment: Speci men Type: BLOOD SPECIMEN [facility] Address: [address] [place] [address] Performed By: #### 5 763-8 #### [facility] CLIA [id number] [address] [place] [address] [place] Bilirubin [Mass/Vol] 0.2 mg/dL Normal 0.2-1.3 [facility] Comment on above: Order Comment: Speci men Type: BLOOD SPECIMEN [facility] Address: [address] [place], [place] [address] Performed By: #### 5 763-8 #### [facility] CLIA [id number] [address] [place] [address] [place] Calcium [Mass/Vol] 9.2 mg/dL Normal 8.5-10.2 [facility] Comment on above: Order Comment: Speci men Type: BLOOD SPECIMEN [facility] Address: [address] [place] [address] Performed By: #### 5 763-8 #### [facility] CLIA [id number] [address] [place] [address] [place] Chloride [Moles/Vol] 96 mmol/L Low 98-107 [facility] Comment on above: Order Comment: Speci men Type: BLOOD SPECIMEN [facility] Address: [address] [place] [address] Performed By: #### 5 763-8 #### [facility] CLIA [id number] [address] [place] [address] [place] CO2 [Moles/Vol] 24 mmol/L Normal 22-30 [facility] Comment on above: Order Comment: Speci men Type: BLOOD SPECIMEN [facility] Address: [address] [place] [address] Performed By: #### 5 763-8 #### [facility] CLIA [id number] [address] [place] [address] [place] Creatinine [Mass/Vol] 0.87 mg/dL Normal 0.58-0.96 [facility] Comment on above: Order Comment: Speci men Type: BLOOD SPECIMEN [facility] Address: [address] [place] [address] Performed By: #### 5 763-8 #### [facility] CLIA [id number] [address] [place] [address] [place] Creatinine and Glomerular filtration rate.predicted panel (S/P/Bld) 64 mL/min/1.73m??? Normal >=60 [facility] Comment on above: Order Comment: Fan meade Type: BLOOD SPECIMEN [facility] Address: [address] [place] [address] Result Comment: Hilda mated Glomerular Filtration Rate [...] GFR. Performed By: #### 5 763-8 #### [facility] CLIA [id number] [address] [place] [address] [place] Glucose [Mass/Vol] 212 mg/dL High 74-99 [facility] Comment on above: Order Comment: Fan meade Type: BLOOD SPECIMEN [facility] Address: [address] [place] [address] Result Comment: The [place] Diabetes Association (ADA) provides guidance for cutoff [...] Standards of Medical Care in Diabetes 2016, [place] [employer]. Diabetes Care. 2016.39(Suppl 1). Performed By: #### 5 763-8 #### [facility] CLIA [id number] [address] [place] [address] [place] Potassium [Moles/Vol] 4.6 mmol/L Normal 3.7-5.1 [facility] Comment on above: Order Comment: Speci men Type: BLOOD SPECIMEN [facility] Address: [address] [place] [address] Performed By: #### 5 763-8 #### [facility] CLIA [id number] [address] [place] [address] [place] Protein [Mass/Vol] 6.5 g/dL Normal 6.3-8.0 [facility] Comment on above: Order Comment: Speci men Type: BLOOD SPECIMEN [facility] Address: [address] [place] [address] Performed By: #### 5 763-8 #### [facility] CLIA [id number] [address] [place] [address] [place] Sodium [Moles/Vol] 134 mmol/L Low 136-144 [facility] Comment on above: Order Comment: Speci men Type: BLOOD SPECIMEN [facility] Address: [address] [place] [address] Performed By: #### 5 763-8 #### [facility] CLIA [id number] [address] [place] [address] [place] Urea nitrogen [Mass/Vol] 29 mg/dL High 7-21 [facility] Comment on above: Order Comment: Speci men Type: BLOOD SPECIMEN [facility] Address: [address] [place] [address] Performed By: #### 5 763-8 #### [facility] CLIA [id number] [address] [place] [address] [place] ECG COMPLETEon 08-13-2024 ECG COMPLETE Ventricular Rate : 9 7 BPM Atrial Rate : 97 BPM P-R Interval : 174 ms QRS Duration : 78 ms Q-T Interval : 328 ms QTC Calculation(Bazett) : 416 ms Calculated P Bond : 64 degrees Calculated R Bond : 29 degrees Calculated T Bond : 68 degrees SINUS RHYTHM WITH PREMATURE ATRIAL COMPLEXES CANNOT EXCLUDE ANTERIOR MYOCARDIAL INFARCTION , AGE UNDETERMINED ABNORMAL ECG 1402 08/13/2024 Confirmed by DO ROMO ALAN ([id number]), magazine editor CAROLINA MERRITT ([id number]) on 08/14/2024 8:29:13 AM NAME : YUSUF MEDINA PID : [id number] : 1935 Gender : Female Race : ORD : [id number] Procedure Date : Aug 13 2024 14:04:37 Edit Date : Aug 14 2024 08:29:17 Diagnosis: SINUS RHYTHM WITH PREMATURE ATRIAL COMPLEXES CANNOT EXCLUDE ANTERIOR MYOCARDIAL INFARCTION , AGE UNDETERMINED ABNORMAL ECG 1402 08/13/2024 Confirmed by DO ROMO ALAN ([id number]), magazine editor CAROLINA MERRITT ([id number]) on 08/14/2024 8:29:13 AM Test Reason : Chest Pain Location : 215 : [address]UED [id number]-[id number] Overread By : DO ROMO ALAN Edited By : CAROLINA MERRITT Referred By : , Acquired by : Ally MURGUIA [facility] ED NOTEon 08-13-2024 ED NOTE HNO ID: [id number] Author: ELIF SAM, LIT Service: Nursing Author Type: Registered Nurse Type: ED Notes Filed: 08/13/2024 17:42 Note Text: Pt given discharge instructions. Verbalized understanding. Pt taken to daughters car by wheelchair. Normal [facility] ED NOTE HNO ID: [id number] Author: KONSTANTIN FLORES RN Service: Nursing Author [...] notify staff of any changes in condition. [facility] ED PROV NOTEon 08-13-2024 ED PROV NOTE HNO ID: [id number] Author: MARIUSZ ROMO DO Service: Emergency Medicine [...] better. Her daughter is translating. They speak Brazilian. She does not want me to call an additional director of research. Patient does not have headache. No posterior head or neck pain. No chest pain. No thoracic lumbar back pain. No abdominal pain. No dysuria. No urinary frequency. No diarrhea. No constipation. She really is without complaints. She believes she has been eating fine. 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 [...] - REMV CATARACT EXTRACAP,INSERT LENS Bilateral 2020 [facility] FAMILY HISTORY Problem Relation Age of [...] / D (more content not included)... Normal [facility] HIGH SENSITIVITY TROPONIN T (INITIAL)on 08-13-2024 Troponin T.cardiac High sensitivity method [Mass/Vol] 30 ng/L High <12 [facility] Comment on above: Order Comment: Fan meade Type: BLOOD SPECIMEN [facility] Address: [address] [place] [address] Performed By: #### 5 763-8 #### [facility] CLIA [id number] [address] [place] [address] [place] [address] [place] HIGH SENSITIVITY TROPONIN T (SECOND)on 08-13-2024 Troponin T.cardiac High sensitivity method [Mass/Vol] 29 ng/L High <12 [facility] Comment on above: Order Comment: Fan meade Type: BLOOD SPECIMENOrdering Facility: [facility] Address: [address] [place] [address] Performed By: #### L [id number] ####[facility] [id number] [place] [address] [place] PT panel Coag (PPP)on 2023 INR Coag (PPP) [Relative time] 1.0 {INR} Normal 0.9-1.3 [facility] Comment on above: Order Comment: Fan meade Type: BLOOD SPECIMENOrdering Facility: [facility] Address: [address] [place] [address] Result Comment: Kendra min K Antagonist (VKA) Therapeutic Range: INR 2 to 3 (Target INR of 2.5) Note: For patients treated with VKA drugs, such as warfarin, the [place] [employer] 2012 Guideline recommends [...] Chest 2012, 141:7S-47S John RA, et al. [facility] 2017, 70: 252-289 Performed By: #### 3 4528-0 ####[facility] [id number] [place] [address] [place] PT Coag (PPP) [Time] 10.6 s Normal 9.7-13.0 [facility] Comment on above: Order Comment: Speci men Type: BLOOD SPECIMENOrdering Facility: [facility] Address: [address] [place] [address] Performed By: #### 3 4528-0 ####[facility] [id number] [place] [address] [place] Urinalysis complete panel (U )on 08-13-2024 Bilirubin Ql (U) Negative Normal Negative [facility] Comment on above: Order Comment: Speci men Type: BLOOD SPECIMEN Ordering Facility: [facility] Address: [address] [place] [address] Performed By: #### 2 132-9, 4-8 #### [facility] CLIA [id number] [address] [place] [address] [place] Clarity (Unsp spec) Clear Normal Clear [facility] [facility] Comment on above: Order Comment: Speci men Type: BLOOD SPECIMEN Ordering Facility: [facility] Address: [address] [place] [address] Performed By: #### 2 132-9, 4-8 #### [facility] CLIA [id number] [address] [place] [address] [place] Color (U) Yellow Normal yellow [facility] Comment on above: Order Comment: Speci men Type: BLOOD SPECIMEN Ordering Facility: [facility] Address: [address] [place] [address] Performed By: #### 2 132-9, 8 #### [facility] CLIA [id number] [address] [place] [address] [place] Epithelial cells LM.HPF (Urine sed) [#/Area] Few Normal [facility] Comment on above: Order Comment: Speci men Type: BLOOD SPECIMEN Ordering Facility: [facility] Address: [address] [place] [address] Result Comment: Few Performed By: #### 2 132-9, 8 #### [facility] CLIA [id number] [address] [place] [address] [place] Glucose Test strip (U) [Mass/Vol] Negative Normal Trace, Negative [facility] Comment on above: Order Comment: Speci men Type: BLOOD SPECIMEN Ordering Facility: [facility] Address: [address] [place] [address] Performed By: #### 2 132-9, 8 #### [facility] CLIA [id number] [address] [place] [address] [place] Hemoglobin Ql (U) Trace Normal Negative, Trace [facility] Comment on above: Order Comment: Speci men Type: BLOOD SPECIMEN Ordering Facility: [facility] Address: [address] [place] [address] Performed By: #### 2 132-9, 2284-06 #### [facility] CLIA [id number] [address] [place] [address] [place] Ketones Ql (U) Negative Normal Negative, Trace [facility] Comment on above: Order Comment: Speci men Type: BLOOD SPECIMEN Ordering Facility: [facility] Address: [address] [place] [address] Performed By: #### 2 132-9, 8 #### [facility] CLIA [id number] [address] [place] [address] [place] Leukocyte esterase Test strip Ql (U) Negative Normal Negative, 25 Vani/uL [facility] Comment on above: Order Comment: Speci men Type: BLOOD SPECIMEN Ordering Facility: [facility] Address: [address] [place] [address] Performed By: #### 2 132-9, 8 #### [facility] CLIA [id number] [address] [place] [address] [place] Nitrite Ql (U) Negative Normal Negative [facility] Comment on above: Order Comment: Speci men Type: BLOOD SPECIMEN Ordering Facility: [facility] Address: [address] [place] [address] Performed By: #### 2 132-9, 8 #### [facility] CLIA [id number] [address] [place] [address] [place] pH (U) 6.0 [pH] Normal 5.0-8.0 [facility] Comment on above: Order Comment: Speci men Type: BLOOD SPECIMEN Ordering Facility: [facility] Address: [address] [place] [address] Performed By: #### 2 132-9, 8 #### [facility] CLIA [id number] [address] [place] [address] [place] Protein (U) [Mass/Vol] 1+ Abnormal Trace , Negative [facility] Comment on above: Order Comment: Speci men Type: BLOOD SPECIMEN Ordering Facility: [facility] Address: [address] [place] [address] Performed By: #### 2 132-9, 8 #### [facility] CLIA [id number] [address] [place] [address] [place] RBC LM.HPF (Urine sed) [#/Area] 3-5 /HPF Abnormal 0-3 /HPF [facility] Comment on above: Order Comment: Speci men Type: BLOOD SPECIMEN Ordering Facility: [facility] Address: [address] [place] [address] Performed By: #### 2 132-9, 2283-8 #### [facility] CLIA [id number] [address] [place] [address] [place] Specific gravity (U) [Rel density] 1.021 Normal 1.005-1.030 [facility] Comment on above: Order Comment: Speci men Type: BLOOD SPECIMEN Ordering Facility: [facility] Address: [address] [place] [address] Performed By: #### 2 132-9, 2283-8 #### [facility] CLIA [id number] [address] [place] [address] [place] Urobilinogen Ql (U) Normal Normal Normal [facility] Comment on above: Order Comment: Speci men Type: BLOOD SPECIMEN Ordering Facility: [facility] Address: [address] [place] [address] Performed By: #### 2 132-9, 8 #### [facility] CLIA [id number] [address] [place] [address] [place] WBC LM.HPF (Urine sed) [#/Area] 0-5 /HPF Normal 0-5 /HPF [facility] Comment on above: Order Comment: Speci men Type: BLOOD SPECIMEN Ordering Facility: [facility] Address: [address] [place] [address] Performed By: #### 2 132-9, 8 #### [facility] CLIA [id number] [address] [place], [place] [address] [place] XR CHEST 1V [...] of bilateral shoulders IMPRESSION: Bilateral basilar atelectasis Elephant Keeper: PHU Transcribe Date/Time: Aug 13 2024 4:03P Dictated by : GILLIAN ELLIOTT MD This examination was interpreted and the report reviewed and electronically signed by: GILLIAN ELLIOTT MD on Aug 13 2024 4:04PM EST [id number] Normal [facility] CNOVon 07-12-2024 CNOV Office Visit ([facility] ) YUSUF MEDINA ([id number]) 1935 [facility] Date Time Provider Department 07/12/24 9:40 AM MIGDALIA CRAMER [facility] During your visit today, we recorded the [...] [D50.9] Order(s):BASIC METABOLIC PANEL [SQBMP] Order #: [id number] FUTURE HEMOGLOBIN A1C [WIUUI9S] Order #: [id number] FUTURE ALBUMIN/CREATININE RATIO, URINE [SQUACR] Order #: [id number] FUTURE COMPLETE BLOOD COUNT [SQCBC] Order #: [id number] FUTURE THYROID STIMULATING HORMONE [SQTSH] Order #: [id number] FUTURE Prescriptions as of 07/12/2024 - pioglitazone [...] mouth once daily. - blood sugar diagnostic ([employer] ULTRA TEST) test strip Test blood sugar once daily - diclofenac (VOLTARE (more content not included)... Normal [facility] Basic metabolic 2000 panelon 07-11-2024 Anion gap [Moles/Vol] 14 mmol/L Normal 8-15 [facility] Comment on above: Order Comment: Speci men Type: BLOOD SPECIMENOrdering Facility: [facility] Address: [address] [place] [address] Performed By: #### 2 4321-2 ####[facility] [id number] [place] [id number] [place] Calcium [Mass/Vol] 9.9 mg/dL Normal 8.5-10.2 [facility] Comment on above: Order Comment: Speci men Type: BLOOD SPECIMENOrdering Facility: [facility] Address: [address] [place] [address] Performed By: #### 2 4321-2 ####[facility] [id number] [place] [address] [place] Chloride [Moles/Vol] 101 mmol/L Normal 98-107 [facility] Comment on above: Order Comment: Speci men Type: BLOOD SPECIMENOrdering Facility: [facility] Address: [address] [place] [address] Performed By: #### 2 4321-2 ####[facility] [id number] [place] [address] [place] CO2 [Moles/Vol] 20 mmol/L Low 22-30 [facility] Comment on above: Order Comment: Speci men Type: BLOOD SPECIMENOrdering Facility: [facility] Address: [address] [place] [address] Performed By: #### 2 4321-2 ####[facility] [id number] [place] [address] [place] Creatinine [Mass/Vol] 0.93 mg/dL Normal 0.58-0.96 [facility] Comment on above: Order Comment: Speci men Type: BLOOD SPECIMENOrdering Facility: [facility] Address: [address] [place] [address] Performed By: #### 2 4321-2 ####[facility] [id number] [place] [address] [place] Creatinine and Glomerular filtration rate.predicted panel (S/P/Bld) 59 mL/min/1.73m??? Low >=60 [facility] Comment on above: Order Comment: Fan meade Type: BLOOD SPECIMENOrdering Facility: [facility] Address: [address] [place] [address] Result Comment: Hilda mated Glomerular Filtration Rate [...] actual GFR. Performed By: #### 2 4321-2 ####[facility] [id number] [place] [address] [place] Glucose [Mass/Vol] 244 mg/dL High 74-99 [facility] Comment on above: Order Comment: Fan meade Type: BLOOD SPECIMENOrdering Facility: [facility] Address: [address] [place] [address] Result Comment: The [place] Diabetes Association (ADA) provides guidance for cutoff [...] Standards of Medical Care in Diabetes 2016, [place] Diabetes Association. Diabetes Care. 2016.39(Suppl 1). Performed By: #### 2 4321-2 ####[facility] [id number] [place] [address] [place] Potassium [Moles/Vol] 5.2 mmol/L High 3.7-5.1 [facility] Comment on above: Order Comment: Speci men Type: BLOOD SPECIMENOrdering Facility: [facility] Address: [address] [place] [address] Performed By: #### 2 4321-2 ####[facility] [id number] [place] [address] [place] Sodium [Moles/Vol] 135 mmol/L Low 136-144 [facility] Comment on above: Order Comment: Speci men Type: BLOOD SPECIMENOrdering Facility: [facility] Address: [address] [place] [address] Performed By: #### 2 4321-2 ####[facility] [id number] [place] [address] [place] Urea nitrogen [Mass/Vol] 30 mg/dL High 7-21 [facility] Comment on above: Order Comment: Speci men Type: BLOOD SPECIMENOrdering Facility: [facility] Address: [address] [place] [address] Performed By: #### 2 4321-2 ####[facility] [id number] [place] [address] [place] HbA1c (Bld)on 07-11-2024 Average glucose Estimated from glycated hemoglobin (Bld) [Mass/Vol] 189 mg/dL Normal [facility] Comment on above: Order Comment: Speci men Type: BLOOD SPECIMENOrdering Facility: [facility] Address: [address] [place] [address] Result Comment: eAG: (Estimated average glucose) is a calculated value from HgbA1c and is administrative representative of the average blood glucose level in the last 2-3 month period. Performed By: #### 5 5454-3 ####[facility] [id number] [facility] [id number] [address] [place] HbA1c (Bld) [Mass fraction] 8.2 % High 4.3-5.6 [facility] Comment on above: Order Comment: Fan meade Type: BLOOD SPECIMENOrdering Facility: [facility] Address: [address] [place] [address] Result Comment: Shruti ican Diabetes Association guidelines indicate that patients with HgbA1c in the range 5.7-6.4% are at increased risk for development of diabetes, and intervention by lifestyle modification may be beneficial. HgbA1c greater or equal to 6.5% is considered diagnostic of diabetes. Performed By: #### 5 5454-3 ####[facility] [id number] [address] [place] LIPID PANEL, NONFASTINGon Cholesterol [Mass/Vol] 151 mg/dL Normal <200 [facility] Comment on above: Order Comment: Fan meade Type: BLOOD SPECIMEN Ordering Facility: [facility] Address: [address] [place] [address] Result Comment: <200 mg/dL, Desirable 200-239 mg/dL, Borderline high >239 mg/dL, High Performed By: #### 1 3964-2 #### [facility] CLIA [id number] [address] [place] [address] [place] HDL CHOLESTEROL, NF 59 mg/dL Normal >39 [facility] Comment on above: Order Comment: Fan meade Type: BLOOD SPECIMEN Ordering Facility[facility] Address: [address] [place] [address] Result Comment: 40-5 9 mg/dL, Acceptable >59 mg/dL, High: Negative risk factor for coronary heart disease <40 mg/dL, Low: Positive risk factor for coronary heart disease Performed By: #### 1 3964-2 #### [facility] CLIA [id number] [address] [place] [address] [place] LDL CHOLESTEROL, NF 71 mg/dL Normal <100 [facility] Comment on above: Order Comment: Fan meade Type: BLOOD SPECIMEN Ordering Facility: [facility] Address: [address] [place] [address] Result Comment: <100 mg/dL, Optimal 100-129 mg/dL, Near optimal/above optimal 130-159 mg/dL, Borderline high 160-189 mg/dL, High >189 mg/dL, Very high Secondary prevention optimal LDL Cholesterol levels are recommended to be < 70 mg/dL Performed By: #### 1 3964-2 #### [facility] CLIA [id number] [address] [place] [address] [place] LDL/HDL RATIO, NF 1.20 mg/dL Normal <2.54 [facility] Comment on above: Order Comment: Fan meade Type: BLOOD SPECIMEN Ordering Facility: [facility] Address: [address] [place] [address] Result Comment: Refe rence: 1. National Cholesterol Education Program ATP III Guideline At-A-Glance Quick Desk Reference: National Heart, Lung, and Blood [place]. National Institutes of Health. 2001: NIH Publication No. 01-3305. 2. An International Atherosclerosis Society position paper: global recommendations for the management of dyslipidemia: executive summary, Atherosclerosis. 2014: 232(2):410-413. Performed By: #### 1 3964-2 #### [facility] CLIA [id number] [address] [place] [address] [place] NON HDL CHOL, NF 92 mg/dL Normal <130 [facility] Comment on above: Order Comment: Fan meade Type: BLOOD SPECIMEN [facility] Address: [address] [place] [address] Result Comment: <130 mg/dL, Optimal 130-159 mg/dL, Near optimal/above optimal 160-189 mg/dL, Borderline high 190-219 mg/dL, High >219 mg/dL, Very high Secondary prevention optimal non HDL Cholesterol levels are recommended to be <100 mg/dL Performed By: #### 1 3964-2 #### [facility] CLIA [id number] [address] [place], [place] [address] [place] [address] [place] T CHOL/HDL RATIO NF 2.56 mg/dL Normal <5.10 [facility] Comment on above: Order Comment: Specleroy meade Type: BLOOD SPECIMEN Ordering Facility: [facility] Address: [address] [place] [address] Performed By: #### 1 3964-2 #### [facility] CLIA [id number] [address] [place] [address] [place] TRIGLYCERIDES, NF 107 mg/dL Normal <150 [facility] Comment on above: Order Comment: Speci men Type: BLOOD SPECIMEN Ordering [facility] Address: [address] [place] [address] Result Comment: <150 mg/dL, Normal 150-199 mg/dL, Borderline high 200-499 mg/dL, High >499 mg/dL, Very high Performed By: #### 1 3964-2 #### [facility] CLIA [id number] [address] [place] [address] [place] VLDL CHOLESTEROL, NF 21 mg/dL Normal <30 [facility] Comment on above: Order Comment: Fan halina Type: BLOOD SPECIMEN Ordering [facility] Address: [address] [place] [address] Performed By: #### 1 3964-2 #### [facility] CLIA [id number] [address] [place] [address] [place] Home Health Progress Noteon 12-09-2021 Home Health Progress Note Follow up call placed to patient regarding HHC. Spoke with Yusuf regarding services. Patient states no services needed and hung up on caller. Will cancel referral to [facility]. Normal [facility] BASICMETAon 12-07-2021 GFR AA 45 Normal [facility] Comment on above: Result Comment: Afri can Bulgarian GFR Calc Medical judgement is necessary to [...] for drug dosing. Performed By: #### C D:[id number], 0127100, 218714, 088427, 730900, 382500 #### [facility] [address] [place] [address] Pizzamaker: Robert Ybarra MD Glomerular Filtration Rate 37 mL/min/1.73m? Normal [facility] Comment on above: Result Comment: [...] for drug dosing. Performed By: #### C D:[id number], 3996061, 596204, 565256, 615968, 953904 #### [facility] [address] [place] [address] Pizzamaker: Robert Ybarra MD Osmolality [Osmolality] 287 mosm/kg Normal 275-295 [facility] Comment on above: Performed By: #### C D:[id number], 0173591, 351326, 973240, 880402, 669335 #### [facility] [address] [place] [address] Pizzamaker: Robert Ybarra MD Urea nitrogen/Creatinine [Mass ratio] 19.1 mg/mg Normal [facility] Comment on above: Performed By: #### C D:[id number], 9309030, 203485, 398871, 951575, 198688 #### [facility] [address] [place] [address] Pizzamaker: Robert Ybarra MD Calcium [Mass/Vol] 9.7 mg/dL Normal 8.5-10.5 [facility] Comment on above: Performed By: #### C D:[id number], 0189077, 070435, 388785, 203976, 549081 #### [facility] [address] [place] [address] Pizzamaker: Robert Ybarra MD Chloride [Moles/Vol] 107 mmol/L Normal 100-109 [facility] Comment on above: Performed By: #### C D:[id number], 4400395, 004627, 672633, 718769, 684887 #### [facility] [address] [place] [address] Pizzamaker: Robert Ybarra MD CO2 [Moles/Vol] 25.9 mmol/L Normal 21.0-32.0 [facility] Comment on above: Performed By: #### C D:025012650, 8404402, 122074, 158047, 532868, 608656 #### [facility] [address] [place] [address] Pizzamaker: Robert Ybarra MD Creatinine [Mass/Vol] 1.4 mg/dL High 0.6-1.0 [facility] Comment on above: Performed By: #### C D:[id number], 1464421, 594970, 737058, 664569, 318076 #### [facility] [address] [place] [address] Pizzamaker: Robert Ybarra MD Glucose [Mass/Vol] 177 mg/dL High 72-100 [facility] Comment on above: Result Comment: Shireen puncture should occur prior to sulfasalazine administration due to the potential for falsely depressed results. Venipuncture should occur prior to sulfapyridine administration due to the potential falsely elevated results. Baseline assay values before administration of sulfasalazine and sulfapyridine therapy would not be affected. Performed By: #### C D:[id number], 0202762, 422227, 533947, 166473, 636608 #### [facility] [address] [place] [address] Pizzamaker: Robert Ybarra MD Potassium [Moles/Vol] 4.7 mmol/L Normal 3.5-5.1 [facility] Comment on above: Performed By: #### C D:[id number], 6392004, 800514, 404505, 202749, 807641 #### [facility] [address] [place] [address] Pizzamaker: Robert Ybarra MD Sodium [Moles/Vol] 139 mmol/L Normal 135-145 [facility] Comment on above: Performed By: #### C D:[id number], 9423639, 512904, 807833, 406800, 363658 #### [facility] [address] [place] [address] Pizzamaker: Robert Ybarra MD Urea nitrogen [Mass/Vol] 26 mg/dL High 10-20 [facility] Comment on above: Performed By: #### C D:[id number], 6023091, 835765, 392301, 146726, 240722 #### [facility] [address] [place] [address] Pizzamaker: Robert Ybarra MD CPKon 12-07-2021 CPK 1185 unit/L Critically abnormal 26-192 [facility] Comment on above: Result Comment: Crit ical Result(s) called at: 13:24:37 on 12/07/2021 by: MIRNA rechecked, RBR to: Dr. Beckford Performed By: #### C D:[id number], 0944660, 044999, 932946, 716316, 910567 #### [facility] [address] [place] [address] Pizzamaker: Robert Ybarra MD Utilization Review Noteon Utilization Review Note Inpatient recomm ended. Inpatient ordered. Patient with #1 acute hypothermia. YUSUF MEDINA 12/03/21 [id number] CCE 200 INPT UPDATED [facility]ER TO [facility] MEDICARE Verified admit thru the portal [id number] PATIENT ALREADY DISCHARGED AT THE TIME OF THIS REVIEW. Faxed Normal [facility] Discharge Educationon 2021 Discharge Education Patient Education Material Normal [facility] Inpatient Patient Summaryon 12-05-2021 Inpatient Patient Summary [facility] Discharge Instructions [address] [place] [address] \\.br\\(Patient Copy)\\.br\\ \\.br\\ \\.br\\Name: YUSUF MEDINA : 1935 \\.br\\Diagnosis: Abrasion of right elbow; Benign essential hypertension; Chronic kidney disease (CKD), stage III (moderate); Contusion of right thigh; Diabetes mellitus type II, controlled; acute Hypothermia \\.br\\ \\.br\\Allergies: No Known Allergies\\.br\\ \\.br\\Registration Date: 12/03/21\\.br\\\\.br\\\\.br \\ \\.br\\ Current Date Time: 12/05/2021 07:42:18 \\.br\\ \\.br\\Address: [address] [place] [address] \\.br\\ \\.br\\ \\.br\\Primary Care Provider: \\.br\\Name: RADHA CRAMER\\.br\\ \\.br\\ \\.br\\Thank you for choosing [facility] for your care. You are very important to us. Our goal is to demonstrate our high quality medical care and provide you with a very good patient experience.\\.br\\ You may receive a survey about our service. Please take the time to complete the survey and return it so we can continue to enhance our service.\\.br\\ Thank you again for allowing [facility] to care for your medical needs. [...] in more information on smoking cessation, contact [facility]?s Tobacco Cessation [facility] [phone]\\.br\\ \\.br\\ DIET Eat a variety of nutritious [...] Connection / Physician Referral and Health Information [phone].\\.br\\Hear t and Vascular [place] [id number]-KSM-BEAT ( )\\.br\\S easons of a Woman?s Life [phone] \\.br\\ \\.br\\ Call immediately if you or [...] discomfort: M (more content not included)... Normal [facility] AUTO DIFFon 12-04-2021 Baso Count 0.05 x1000 Normal 0.00-0.20 [facility] Comment on above: Performed By: #### 1 , 195869, 491899, 1507478 ####[facility] [id number] [place] [address] Medical Director: Robert Ybarra MD Basos % 0.5 % Normal [facility] Comment on above: Performed By: #### 1 , 413025, 810090, 0721716 ####[facility] [id number] [place] [address] Medical Director: Robert Ybarra MD Eos Count 0.01 x1000 Normal 0.00-0.50 [facility] Comment on above: Performed By: #### 1 , 288855, 041864, 0548757 ####[facility] [id number] [place] [address] Medical Director: Robert Ybarra MD Eosinophils/100 WBC (Bld) 0.1 % Normal [facility] Comment on above: Performed By: #### 1 , 064967, 830608, 0108441 ####[facility] [id number] [place] [address] Medical Director: Robert Ybarra MD Lymph Count 1.19 x1000 Low 1.20-4.80 [facility] Comment on above: Performed By: #### 1 , 097663, 042705, 0074616 ####[facility] [id number] [place] [address] Medical Director: Robert Ybarra MD Lymphocytes/100 WBC (Bld) 11.8 % Normal [facility] Comment on above: Performed By: #### 1 , 962063, 330352, 7559084 ####[facility] [address] [place] [address] Medical Director: Robert Ybarra MD Letcher Count 0.57 x1000 Normal 0.10-1.00 [facility] Comment on above: Performed By: #### 1 , 163722, 876692, [id number] ####[facility] [address] [place] [address] Medical Director: Robert Ybarra MD Monocytes/100 WBC (Bld) 5.6 % Normal [facility] Comment on above: Performed By: #### 1 , 864228, 615617, [id number] ####[facility] [address] [place] [address] Medical Director: Robert Ybarra MD Neutrophil Count (ANC) 8.28 x1000 Normal 1.40-8.80 [facility] Comment on above: Performed By: #### 1 , 466556, 453206, [id number] ####[facility] [address] [place] [address] Medical Director: Robert Ybarra MD Neutrophils/100 WBC (Bld) 82.0 % Normal [facility] Comment on above: Performed By: #### 1 , 103257, 759516, 0008130 ####[facility] [address] [place] [address] Medical Director: Robert Ybarra MD B12 FOLATEon 12-04-2021 Cobalamin (Vitamin B12) [Mass/Vol] 455 pg/mL Normal 193-986 [facility] Comment on above: Performed By: #### 1 , 056449, 748170, 5882660 ####[facility] Laboratory [address] [place], [place] [id number]) [phone] Director: Robert Ybarra MD FOLATE 14.3 ng/mL Normal 3.1-17.5 [facility] Comment on above: Performed By: #### 1 81886, 204391, 055656, 6918270 ####[facility] [address] [place], [place] [id number]) [phone] Director: Robert Ybarra MD BLD GASon 12-04-2021 MAGGIE TEST Normal [facility] Comment on above: Performed By: #### C D:[id number], 8324029, 698966, 488823, 150845, 054149 #### [facility] Services [address] [place] [address] Pizzamaker: Robert Ybarra MD Base Excess -5.0 mmol/L [facility] Comment on above: Performed By: #### C D:[id number], 1300110, 522332, 872525, 632689, 305774 #### [facility] Services [address] [place] [address] Pizzamaker: Robert Ybarra MD ePAP [address] [facility] Comment on above: Performed By: #### C D:[id number], 5584402, 697313, 853182, 435412, 648790 #### [facility] Laboratory Services [address] [place] [address] Pizzamaker: Robert Ybarra MD FIO2 36 % Normal [facility] Comment on above: Performed By: #### C D:[id number], 6168205, 685990, 973829, 837516, 292160 #### [facility] Laboratory Services [address] [place] [address] Pizzamaker: Robert Ybarra MD HCO3 (Bld) [Moles/Vol] 19.8 mmol/L Low 22.0-26.0 [facility] Comment on above: Performed By: #### C D:304324075, 5221065, 922238, 720646, 341985, 514487 #### [facility] Laboratory Services [address] [place] [address] Pizzamaker: Robert Ybarra MD iPAP [address] [facility] Comment on above: Performed By: #### C D:[id number], 1071506, 923581, 110890, 693878, 562892 #### [facility] Laboratory Services [address] [place] [address] Pizzamaker: Robert Ybarra MD O2 L/M 4.0 [facility] Comment on above: Performed By: #### C D:[id number], 5508742, 319213, 304642, 281406, 952960 #### [facility] Services [address] [place], [place] [address] Pizzamaker: Robert Ybarra MD Oxygen (Bld) [Partial pressure] 82.0 mm[Hg] Normal 80.0-100.0 [facility] Comment on above: Performed By: #### C D:092274155, 1147719, 472114, 037207, 031138, 859561 #### [facility] Laboratory Services [address] [place] [address] Pizzamaker: Robert Ybarra MD Oxygen saturation in Blood 94.1 % Normal [facility] Comment on above: Performed By: #### C D:892623910, 4564254, 736883, 217387, 202653, 684812 #### [facility] Laboratory Services [address] [place] [address] Pizzamaker: Robert Ybarra MD PCO2 35.6 mmHg Normal 35.0-45.0 [facility] Comment on above: Performed By: #### C D:606314804, 7310823, 459797, 699657, 629066, 518487 #### [facility] Laboratory Services [address] [place] [address] Pizzamaker: Robert Ybarra MD PEEP 0.0 cmH20 Normal [facility] Comment on above: Performed By: #### C D:998238830, 5100157, 438324, 285198, 800775, 473436 #### [facility] Services [address] [place] [address] Pizzamaker: Robert Ybarra MD pH (Bld) 7.363 [pH] Normal 7.350-7.450 [facility] Comment on above: Performed By: #### C D:328885709, 9006131, 542289, 131048, 110845, 148456 #### [facility] Services [address] [place] [address] Pizzamaker: Robert Ybarra MD PO2/FiO2 Ratio 228 Low 300-500 [facility] Comment on above: Performed By: #### C D:517859574, 5603212, 465557, 002623, 243123, 746741 #### [facility] Services [address] [place] [address] Pizzamaker: Robert Ybarra MD Pressure Support. 0 cmH20 Normal [facility] Comment on above: Performed By: #### C D:085091974, 7532961, 713464, 772260, 334964, 642238 #### [facility] Laboratory Services [address] [place] [address] Pizzamaker: Robert Ybarra MD RATE 0 bpm Normal [facility] Comment on above: Performed By: #### C D:206097823, 0949944, 817307, 103930, 953688, 857323 #### [facility] Laboratory Services [address] [place] [address] Pizzamaker: Robert Ybarra MD TEMP 37.0 degC Normal <=37.0 [facility] Comment on above: Performed By: #### C D:903311339, 7706034, 360756, 575868, 393613, 030677 #### [facility] Services [address] [place] [address] Pizzamaker: Robert Ybarra MD Type of Specimen RB Art Normal [facility] Comment on above: Result Comment: RR A RT = Right Artery RB ART = Right Brachial Artery LR ART = Left Radial Artery LB ART = Left Brachial Artery RF ART = Right Femoral Artery LF ART = Left Femoral Artery Performed By: #### C D:404391706, 5520261, 770050, 136492, 757897, 198793 #### [facility] [address] [place] [address] Pizzamaker: Robert Ybarra MD Ventilation Nasalcan [facility] Comment on above: Performed By: #### C D:685993336, 0145549, 594759, 781979, 949897, 161403 #### [facility] Services [address] [place] [address] Pizzamaker: Robert Ybarra MD VT [address] [facility] Comment on above: Performed By: #### C D:930035737, 9390889, 179629, 890694, 074890, 237276 #### [facility] Services [address] [place] [address] Pizzamaker: Robert Ybarra MD CBCNDon 12-04-2021 Erythrocyte distribution width (RBC) [Ratio] 14.2 % Normal 11.5-14.5 [facility] Comment on above: Performed By: #### C D:269025581, 8246410, 669374, 789804, 501555, 518916 #### [facility] [address] [place] [address] Pizzamaker: Robert Ybarra MD Hematocrit (Bld) [Volume fraction] 30.1 % Low 36.0-46.0 [facility] Comment on above: Performed By: #### C D:877854207, 4724279, 539405, 734036, 754109, 703252 #### [facility] [address] [place], [place] [address] Pizzamaker: Robert Ybarra MD Hemoglobin (Bld) [Mass/Vol] 10.1 g/dL Low 12.0-16.0 [facility] Comment on above: Performed By: #### C D:656200345, 5136525, 467237, 194954, 431600, 622318 #### [facility] [address] [place], [place] [address] Pizzamaker: Robert Ybarra MD Instr WBC ND 13.8 Normal [facility] Comment on above: Performed By: #### C D:610828817, 9699669, 565271, 583436, 522042, 298968 #### [facility] Services [address] [place] [address] Pizzamaker: Robert Ybarra MD MCH (RBC) [Entitic mass] 29.8 pg Normal 27.0-34.0 [facility] Comment on above: Performed By: #### C D:966552162, 7669515, 497066, 657417, 924762, 500312 #### [facility] [address] [place], [place] [address] Pizzamaker: Robert Ybarra MD MCHC (RBC) [Mass/Vol] 33.6 g/dL Normal 32.0-37.0 [facility] Comment on above: Performed By: #### C D:259447422, 8968800, 527080, 364406, 504100, 679952 #### [facility] [address] [place], [place] [address] Pizzamaker: Robert Ybarra MD MCV (RBC) [Entitic vol] 88.9 fL Normal 80.0-100.0 [facility] Comment on above: Performed By: #### C D:368630209, 6867657, 476849, 149690, 103497, 609261 #### [facility] [address] [place] [address] Pizzamaker: Robert Ybarra MD Platelet 294 x1000 Normal 150-450 [facility] Comment on above: Performed By: #### C D:139759323, 1637584, 947651, 782579, 903787, 127815 #### [facility] Services [address] [place] [address] Pizzamaker: Robert Ybarra MD Platelet mean volume (Bld) [Entitic vol] 6.9 fL Low 7.4-10.4 [facility] Comment on above: Performed By: #### C D:731262270, 0704253, 194789, 462088, 889648, 596404 #### [facility] [address] [place] [address] Pizzamaker: Robert Ybarra MD RBC 3.38 x10 Low 4.20-5.40 [facility] Comment on above: Result Comment: Note : RBC morphology is normal unless otherwise stated. Evaluation performed only if differential is requested. Performed By: #### C D:566497905, 3369469, 244194, 614739, 459879, 369256 #### [facility] [address] [place] [address] Pizzamaker: Robert Ybarra MD WBC 13.8 x10 High 4.5-11.0 [facility] Comment on above: Performed By: #### C D:708193633, 6191508, 203165, 570373, 429293, 553639 #### [facility] [address] [place] [address] Pizzamaker: Robert Ybarra MD COMPMETAon 12-04-2021 Albumin [Mass/Vol] 2.9 g/dL Low 3.4-5.0 [facility] Comment on above: Performed By: #### C D:876010295, 1143311, 014477, 232048, 018114, 259159 #### [facility] [address] [place] [address] Pizzamaker: Robert Ybarra MD Albumin/Globulin [Mass ratio] 1.2 {ratio} Normal [facility] Comment on above: Performed By: #### C D:931076650, 9054013, 351518, 450612, 460012, 217413 #### [facility] [address] [place] [address] Pizzamaker: Robert Ybarra MD Alk Phos 58 unit/L Normal 45-117 [facility] Comment on above: Performed By: #### C D:778547701, 3048461, 370452, 489447, 763687, 973659 #### [facility] [address] [place] [address] Pizzamaker: Robert Ybarra MD Bilirubin [Mass/Vol] 0.25 mg/dL Normal 0.20-1.00 [facility] Comment on above: Result Comment: Use of this assay is not recommended for patients undergoing treatment with eltrombopag due to the potential for falsely elevated results. Performed By: #### C D:[id number], 5240607, 401263, 890652, 373922, 081377 #### [facility] [address] [place] [address] Pizzamaker: Robert Ybarra MD Calcium [Mass/Vol] 8.5 mg/dL Normal 8.5-10.5 [facility] Comment on above: Performed By: #### C D:689647970, 0452056, 519912, 600025, 566352, 942881 #### [facility] [address] [place] [address] Pizzamaker: Robert Ybarra MD Chloride [Moles/Vol] 106 mmol/L Normal 100-109 [facility] Comment on above: Performed By: #### C D:338736285, 1564104, 445073, 319826, 843123, 663304 #### [facility] [address] [place] [address] Pizzamaker: Robert Ybarra MD CO2 [Moles/Vol] 22.7 mmol/L Normal 21.0-32.0 [facility] Comment on above: Performed By: #### C D:873288710, 2121038, 422698, 635855, 648071, 809920 #### [facility] [address] [place] [address] Pizzamaker: Robert Ybarra MD Creatinine [Mass/Vol] 1.3 mg/dL High 0.6-1.0 [facility] Comment on above: Performed By: #### C D:[id number], 7976553, 056418, 790399, 612007, 488998 #### [facility] [address] [place] [address] Pizzamaker: Robert Ybarra MD GFR AA 46 Normal [facility] Comment on above: Result Comment: Afri can Bulgarian GFR Calc Medical judgement is necessary to [...] for drug dosing. Performed By: #### C D:107243564, 7418997, 159383, 274228, 262397, 658317 #### [facility] [address] [place] [address] Pizzamaker: Robert Ybarra MD Globulin (S) [Mass/Vol] 2.4 g/dL Normal [facility] Comment on above: Performed By: #### C D:[id number], 8467182, 420908, 278704, 240332, 826390 #### [facility] [address] [place], [place] [address] Pizzamaker: Robert Ybarra MD Glomerular Filtration Rate 38 mL/min/1.73m? Normal [facility] Comment on above: Result Comment: [...] for drug dosing. Performed By: #### C D:002845576, 9361063, 017657, 332787, 784097, 830305 #### [facility] [address] [place] [address] Pizzamaker: Robert Ybarra MD Glucose [Mass/Vol] 186 mg/dL High 72-100 [facility] Comment on above: Result Comment: Shireen puncture should occur prior to sulfasalazine administration due to the potential for falsely depressed results. Venipuncture should occur prior to sulfapyridine administration due to the potential falsely elevated results. Baseline assay values before administration of sulfasalazine and sulfapyridine therapy would not be affected. Performed By: #### C D:[id number], 8125737, 557454, 399691, 647154, 498242 #### [facility] [address] [place] [address] Pizzamaker: Robert Ybarra MD GOT 123 unit/L High 15-37 [facility] Comment on above: Result Comment: revi ewed Venipuncture should occur prior to sulfasalazine and/or sulfapyridine administration due to the potential for falsely depressed results. Baseline assay values before administration of sulfasalazine and sulfapyridine therapy would not be affected. Performed By: #### C D:[id number], 0372925, 232811, 805644, 957157, 503744 #### [facility] [address] [place] [address] Pizzamaker: Robert Ybarra MD GPT 92 unit/L High 13-56 [facility] Comment on above: Result Comment: revi ewed Venipuncture should occur prior to sulfasalazine and/or sulfapyridine administration due to the potential for falsely depressed results. Baseline assay values before administration of sulfasalazine and sulfapyridine therapy would not be affected. Performed By: #### C D:332015917, 2860292, 030566, 050457, 024722, 662080 #### [facility] [address] [place] [address] Pizzamaker: Robert Ybarra MD Osmolality [Osmolality] 289 mosm/kg Normal 275-295 [facility] Comment on above: Performed By: #### C D:[id number], 4922668, 643857, 481587, 462071, 884757 #### [facility] [address] [place] [address] Pizzamaker: Robert Ybarra MD Potassium [Moles/Vol] 4.3 mmol/L Normal 3.5-5.1 [facility] Comment on above: Performed By: #### C D:107576836, 3636064, 070353, 744397, 145780, 347985 #### [facility] [address] [place] [address] Pizzamaker: Robert Ybarra MD Protein [Mass/Vol] 5.3 g/dL Low 6.0-8.5 [facility] Comment on above: Performed By: #### C D:546877782, 2836127, 302461, 441420, 285015, 217187 #### [facility] [address] [place] [address] Pizzamaker: Robert Ybarra MD Sodium [Moles/Vol] 137 mmol/L Normal 135-145 [facility] Comment on above: Performed By: #### C D:558512641, 8688762, 864352, 544283, 038657, 177919 #### [facility] [address] [place] [address] 1672330 Pizzamaker: Robert Ybarra MD Urea nitrogen [Mass/Vol] 42 mg/dL High 10-20 [facility] Comment on above: Performed By: #### C D:755198773, 4008071, 118552, 437972, 209661, 908564 #### [facility] [address] [place] [address]70[address] Pizzamaker: Robert Ybarra MD Urea nitrogen/Creatinine [Mass ratio] 31.8 mg/mg Normal [facility] Comment on above: Performed By: #### C D:445450275, 4185242, 399604, 560330, 540957, 585831 #### [facility] [address] [place], [place] [address] Pizzamaker: Robert Ybarra MD CPKon 12-04-2021 CPK 3684 unit/L Critically abnormal [facility] Comment on above: Result Comment: Crit ical Result(s) called at: 17:08:41 on 12/04/2021 by: Kp wallecked, RBR to: TC Performed By: #### C D:[id number], 9804792, 098754, 834226, 857640, 603812 #### [facility] [address] [place], [place] [address] Pizzamaker: Robert Ybarra MD CPK 2217 unit/L Critically abnormal [address] Comment on above: Result Comment: Crit ical Result(s) called at: 04:10:50 on 12/04/2021 by: Byron wallecked, RBR to: SF&XA&&XA&reviewed Performed By: #### C D:[id number], 8859293, 890679, 709811, 828873, 714795 #### [facility] [address] [place] [address] Pizzamaker: Robert Ybarra MD CPK 926 unit/L High 26-192 [facility] Comment on above: Performed By: #### 1 [address] ####[facility] [address] [place] [address] Medical Director: Robert Ybarra MD Consult Reporton 12-04-2021 Consult Report Patient: YUSUF MEDINA Age: 85 years Sex: Female : 1935 Associated Diagnoses: None Author: YENNY HODGE, [facility] Consult Note IMPRESSION: Mechanical fall. Rhabdomyolysis Type II CA elevated troponin without ACS Afib with slow [...] MG TAB 650 mg 2 tabs, ORAL, [id number] ACETAMINOPHEN 325 MG TAB 650 mg 2 tabs, ORAL, [id number] DEXTROSE 50% 50ML SYRINGE/VIAL 12.5 g 25 mL, IV Push, PRN DEXTROSE 50% 50ML SYRINGE/VIAL 25 g 50 mL, IV Push, PRN GLUCAGON 1MG INJ 1 mg, IM, PRN GLUCOSE GEL 15GM/42ML 15 g 1 packets, ORAL, PRN GLUCOSE GEL 15GM/42ML 30 g 2 packets, ORAL, PRN ONDANSETRON=ZOFRAN INJ 4 mg 2 mL, IV Push, [id number] Allergies (1) Active Reaction No Known Allergies [...] available. BNP No qualifying data available. Normal [facility] Consult Report Patient: YUSUF MEDINA Age: 85 years Sex: Female : 1935 Associated Diagnoses: None Author: ERIC DENTON MD History of Present Illness 85-year-old lady. Admitted 12/03/2021 Fell. Also confused. History was limited also because of language barrier. Apparently lives alone. Apparently had gone to the [email or web address] to pick up man eggs. She fell. Unknown why she fell [...] is able to speak little bit of Wolof. Her son lives in the [facility]. She lives alone. She said she went to pick up man eggs in the chicken coop and there [...] MG TAB 650 mg 2 tabs, ORAL, [id number] ACETAMINOPHEN 325 MG TAB 650 mg 2 tabs, ORAL, [id number] DEXTROSE 50% 50ML SYRINGE/VIAL 12.5 g 25 mL, IV Push, PRN DEXTROSE 50% 50ML SYRINGE/VIAL 25 g 50 mL, IV Push, PRN GLUCAGON 1MG INJ 1 mg, IM, PRN GLUCOSE GEL 15GM/42ML 15 g 1 packets, ORAL, PRN GLUCOSE GEL 15GM/42ML 30 g 2 packets, ORAL, PRN ONDANSETRON=ZOFRAN INJ 4 mg 2 mL, IV Push, [id number] PERFLUTREN 2 ML INJ 2 ML, IV [...] language were okay. She spoke in broken Wolof. Good eye contact. Followed commands. She knew [...] Glucose Random (more content not included)... Normal [facility] Consult Report Patient: YUSUF MEDINA [...] Tylenol: 650 mg = 2 tabs, ORAL, [id number], PRN: Mild Pain Tylenol: 650 mg = 2 tabs, ORAL, [id number], PRN: Temperature Above 102 Zofran: 4 mg = 2 mL, IV Push, [id number], PRN: Nausea/Vomiting glucagon: 1 mg, IM, PRN, [...] MG TAB 650 mg 2 tabs, ORAL, J3CPTAF ACETAMINOPHEN 325 MG TAB 650 mg 2 tabs, ORAL, [id number] DEXTROSE 50% 50ML SYRINGE/VIAL 12.5 g 25 mL, IV Push, PRN DEXTROSE 50% 50ML SYRINGE/VIAL 25 g 50 mL, IV Push, PRN GLUCAGON 1MG INJ 1 mg, IM, PRN GLUCOSE GEL 15GM/42ML 15 g 1 packets, ORAL, PRN GLUCOSE GEL 15GM/42ML 30 g 2 packets, ORAL, PRN ONDANSETRON=ZOFRAN INJ 4 mg 2 mL, IV Push, [id number] PERFLUTREN 2 ML INJ 2 ML, IV [...] No activ (more content not included)... Normal [facility] ED Discharge Educationon ED Discharge Education Normal [facility] ED Patient Summaryon 022 ED Patient Summary [facility] Emergency Department Discharge Instructions [address] [place] [address] \\.br\\(Patient Copy)\\.br\\ \\.br\\Name: YUSUF MEDINA : 1935 \\.br\\Allergies: No Known Allergies\\.br\\Diagnosi s: Diagnoses This Visit\\.br\\ Abrasion of right elbow (S50.311A)\\.br\\ acute Hypothermia (T68.XXXA)\\.br\\ Contusion of right thigh (S70.11XA)\\.br\\ Fall ([id number])\\.br\\ Hypothermia due to exposure ([id number])\\.br\\\\ .br\\\\.br\\ \\.br\\ Visit Date: 12/03/2021 19:54:53 \\.br\\ Current Date Time: 12/04/2021 01:06:15 \\.br\\Address: [address] [place] [address] \\.br\\ \\.br\\ \\.br\\Primary Care Provider: \\.br\\Name: RADHA CRAMER\\.br\\ \\.br\\ \\.br\\Emergency Department Care Providers: \\.br\\ Primary Physician: IDA ALMODOVAR MD \\.br\\ \\.br\\ \\.br\\\\.br\\Thank you for choosing [facility] for your emergency care. You are very important to us. Our goal is to demonstrate our high quality medical care, and provide you with a very good patient experience.\\.br\\\\.br\\Y ou may receive a survey about our service. Please take the time to complete the survey and return it so we can continue to enhance our service.\\.br\\\\.br\\Than k you again for allowing the [facility] Emergency Department to care for your medical needs. If you have questions about your care or follow up information please contact us at [phone].\\.br\\\\.br \\ Follow-Up Instructions\\.br\\ \\.b r\\YUSUF MEDINA has been given these follow-up instructions:\\.br\\\\.br \\Patient Education Materials\\.br\\ \\.br\\P YUSUF MARCIAL has been given the following patient education materials:\\.br\\\\.br\\ \\.br\\BEFORE YOU LEAVE\\.br\\\\.br\\Set up your [facility] [employer] account!\\.br\\ \\.br\\[employer] is a secure, online health management tool that connects you to portions of your hospital-based electronic medical record, allowing you to see test results, manage appointments, access discharge care instructions and much more.\\.br\\ \\.br\\You can access [employer] from a computer, tablet or smartphone. Enrollment/registratio n is required. If you do not have a [employer] account, please provide us with an email address before you leave so that we may set up an account for you.\\.br\\ \\.br\\New to [employer]!\\.br\\You may now securely connect some of the health management apps you use (e.g., fitness trackers, dietary trackers, etc.) to your health record in [facility]. This new feature provides expanded access to your health and wellness data, which will help you and your care team make informed decisions about your health care. \\.br\\If you are interested in using a health management gordo not currently connected to [employer], contact a Grip at [phone] or [email or web address]. We will determine if the gordo meets the technical requirements to connect to [facility] and assure the security of your private [...] health or substance abuse issue, please call [facility] at [phone] or the National Suicide Prevention Lifeline at .\\.br\\ \\.br\\\\.br\\ \\.br\\ \\.br\\CAROL Almazan VIORICA, have received the follow-up provider(s) list, medication information and patient education materials/instructions and have verbalized understanding.\\.br\\ \\.br\\ \\.br\\Patient Signature \\.br\\Kalen e \\.br\\Leif e \\.br\\ \\.br\\ \\.br\\ Provider Signature \\.br\\Kalen e \\.br\\Leif e Normal [facility] ED Physician Reporton 2021 ED [...] 20:47:00, rate 37, No ST-T changes, normal [place] & QRS intervals, EP Interp, The Rhythm [...] \\.br\\ Lymph % 24.2 % NA \\.br\\ Letcher % 3.7 % NA \\.br\\ Neutrophil % 70.8 % NA \\.br\\ Eosin % 0.9 % NA \\.br\\ Basos % 0.4 % NA \\.br\\ Lymph Count 5.46 x1000 HI \\.br\\ Letcher Count 0.84 x1000 NORMAL \\.br\\ Neutrophil Count [...] mg/dL H (more content not included)... Normal [facility] ED Progress Noteon ED Progress Note 12/03/215 PT TO ROOM 12 ARRIVED BY SQUAD TRAUMA CALLED FROM FIELD, SEE PAPER CHART FOR INFO. Normal [facility] HEMOon 12-04-2021 DIFF? No Normal [facility] Comment on above: Performed By: #### 1 68968, 920702, 943025, 2397851 ####[facility] [address] [place], [place] [address]) [phone] Director: Robert Ybarra MD Erythrocyte distribution width (RBC) [Ratio] 14.7 % High 11.5-14.5 [facility] Comment on above: Performed By: #### 1 85851, 162986, 863316, 1380240 ####[facility] [address]135[address] [place], [place] [address]) [phone] Director: Robert Ybarra MD Hematocrit (Bld) [Volume fraction] 30.7 % Low 36.0-46.0 [facility] Comment on above: Performed By: #### 1 53749, 243263, 293986, 5653362 ####[facility] [address] [place], [place] [address]) [phone] Director: Robert Ybarra MD Hemoglobin (Bld) [Mass/Vol] 10.4 g/dL Low 12.0-16.0 [facility] Comment on above: Performed By: #### 1 02853, 557729, 102169, 9571507 ####[facility] [address] [place], [place] [address]) [phone] Director: Robert Ybarra MD Instr WBC 10.1 Normal [facility] Comment on above: Performed By: #### 1 35037, 333595, 215742, 1661911 ####[facility] [address]ns[address] [place], [place] [address]) [phone] Director: Robert Ybarra MD MCH (RBC) [Entitic mass] 30.2 pg Normal 27.0-34.0 [facility] Comment on above: Performed By: #### 1 , 489565, 127853, 6068373 ####[facility] Ors[address]ysk[address]50 [place] [address] Medical Director: Robert Ybarra MD MCHC (RBC) [Mass/Vol] 33.9 g/dL Normal 32.0-37.0 [facility] Comment on above: Performed By: #### 1 , 330613, 986972, 7803016 ####[facility] Eqs[address]dia[address] [place], [place] [address]) [phone] Director: Robert Ybarra MD MCV (RBC) [Entitic vol] 89.3 fL Normal 80.0-100.0 [facility] Comment on above: Performed By: #### 1 , 035844, 445478, 6158142 ####[facility] X[address]ikh[address] [place], [place] [address]) [phone] Director: Robert Ybarra MD Nucleated RBC 0 /100WBC Normal [facility] Comment on above: Performed By: #### 1 , 317103, 359043, 7345234 ####[facility] [address] [place], [place] [address]) [phone] Director: Robert Ybarra MD Platelet 310 x1000 Normal 150-450 [facility] Comment on above: Performed By: #### 1 , 520898, 079929, 6115771 ####[facility] [address]wn[address] [place], [place] [address]) [phone] Director: Robert Ybarra MD Platelet mean volume (Bld) [Entitic vol] 7.2 fL Low 7.4-10.4 [facility] Comment on above: Performed By: #### 1 , 519884, 347666, 0036442 ####[facility] [address]es[address] [place] [address] Medical Director: Robert Ybarra MD RBC 3.44 x10 Low 4.20-5.40 [facility] Comment on above: Result Comment: Note : RBC morphology is normal unless otherwise stated. Evaluation performed only if differential is requested. Performed By: #### 1 36370, 086311, 759820, 8375135 ####[facility] [address]xtejmx11[address] [place] [address] Medical Director: oRbert Ybarra MD WBC 10.1 x10 Normal 4.5-11.0 [facility] Comment on above: Performed By: #### 1 56965, 338118, 015114, 3026210 ####[facility] [address]qbo[address] [place] [address] Medical Director: Robert Ybarra MD HGB A1Con 12-04-2021 HbA1c (Bld) [Mass fraction] 6.7 % Normal [facility] Comment on above: Result Comment: Refe rence Range: Diabetic Greater than or equal to 6.5 % Prediabetic 5.7?6.4 % Normal Less than 5.7 % Performed By: #### 1 83691 ####[facility] [address]vh[address] [place] [address] Medical Director: Robert Ybarra MD IRON GROUPon 12-04-2021 Iron [Mass/Vol] 36 ug/dL Low 40-170 [facility] Comment on above: Result Comment: Resu lts may be inaccurate if performed within 14 days of IV iron dextran administration. Performed By: #### 1 27813, 582723, 675575, 5353464 ####[facility] [address]ud[address] [place] [address] Medical Director: Robert Ybarra MD Saturation 9.8 % Low 20.0-50.0 [facility] Comment on above: Performed By: #### 1 39477, 831687, 038313, 0142864 ####[facility] [address]qrl[address]usr57479 [place] [address] Medical Director: Robert Ybarra MD TIBC 367 ug/dl Normal 250-450 [facility] Comment on above: Result Comment: Resu lts may be inaccurate if performed within 14 days of IV iron dextran administration. Performed By: #### 1 05298, 394630, 664403, 3074907 ####[facility] [address]ie[address] [place] [address] Medical Director: Robert Ybarra MD MG LEVELon 12-04-2021 Magnesium [Mass/Vol] 1.6 mg/dL Normal 1.6-2.6 [facility] Comment on above: Performed By: #### C D:[id number], 3063693, 007648, 191245, 906430, 088166 #### [facility] Services [address] [place], [place] [address] Pizzamaker: Robert Ybarra MD Nursing Clinical Noteon 11-15 [...] concerns, plan is for discharge today. 1215 Kyrie Armstrong at bedside, updated on Pt condition and [...] at all times. Hourly rounding completed. Normal [facility] Nursing Clinical Note got report [...] 37.5, bear hugger is still on. Normal [facility] POC Glucoseon 12-04-2021 Glucose [Mass/Vol] 152 mg/dL High 72-100 [facility] Comment on above: Performed By: #### C D:[id number], 6609946, 886658, 433374, 757699, 183152 #### [facility] Services [address] [place] [id number] Pizzamaker: Robert Ybarra MD Glucose [Mass/Vol] 177 mg/dL High 72-100 [facility] Comment on above: Performed By: #### C D:[id number], 6600102, 414215, 462613, 847295, 450264 #### [facility] Services [address] [place] [address] Pizzamaker: Robert Ybarra MD Progress Note-Physicianon Progress Note-Physician [...] and BMP in 24 hrs. Gertrudis Beckford Pharmaceutical Scientist Normal [facility] Progress Note-Physician Patient: YUSUF MEDINA [...] home. She does not consent to short-term group home facility placement. The family will be available to stay with her until she completely recovered with son arriving from [place] this afternoon. Objective Vital Signs (last 24 hrs) Last Charted Temp Rectal 37.8 degC (DEC 04 13:00) Heart Rate Peripheral 77 bpm (DEC 04:) Resp Rate H 26br/min (DEC 04:00) SBP 124 mmHg (DEC 04:) DBP L [...] Plan Diagnosis Abrasion of right elbow - [id number] S50.311A, Emergency medicine, Medical. Acute Hypothermia - [id number] T68.XXXA, Emergency medicine, Medical. Contusion of right thigh - NDQ77-AB S70.11XA, Emergency medicine, Medical. Fall - PNED [id number], Medical. Hypothermia due to exposure - PNED [id number], Medical. She has recovered from hypothermic episode and is now at normal baseline mental status and does not consent to group home facility placement. She will be discharged to home with home health care and family will monitor condition and safety.. Diagnosis Chronic kidney disease (CKD), stage III (moderate) - ZCZ70-FG N18.30, Medical. The patient's creatinine level is at their normal baseline. There is no significant changes in the patient's GFR. The patient's present medications will be continued. The patient's renal function will be monitored.. Diagnosis Diabetes mellitus type II, controlled - QVC76-LA E11.9, Medical. The patient's blood sugars are adequately controlled. The present medications will be continued, with glucometer checks before meals and at bedtime and sliding scale coverage.. Education and Follow-up: Discharge Planning: Plan to discharge ( To home, Total time that I spent on this patient's discharge is greater than 30 minutes; 32minutes total. ). Normal [facility] T4on 12-04-2021 T4 [Mass/Vol] 9.9 ug/dL Normal 4.5-10.9 [facility] Comment on above: Result Comment: Shireen puncture should occur prior to sulfasalazine administration due to the potential for falsely elevated results. Baseline assay values before administration of sulfasalazine and sulfapyridine therapy would not be affected. Performed By: #### C D:[id number], 1863741, 499118, 881522, 254718, 435281 #### [facility] Services [address] [place] [address] Pizzamaker: Robert Ybarra MD TROPONIN HS 2HRon 12-04-2021 Delta Troponin 2 Hr 39 pg/mL High 0-14 [facility] Comment on above: Result Comment: The term acute myocardial infarction should be used when there is acute myocardial injury with clinical evidence of acute myocardial ischemia and the rise or fall of serial Troponin HS values (delta troponin) greater than or equal to 15 pg/mL with at least one Troponin HS value above the 99th percentile reference range Performed By: #### C D:[id number] #### [facility] Services [address] [place] [address] Pizzamaker: Robert Ybarra MD Troponin HS 2 Hr 105 pg/mL High 3-54 [facility] Comment on above: Performed By: #### C D:[id number] #### [facility] Services [address] [place] [address] Pizzamaker: Robert Ybarra MD TROPONIN HS 6HRon 12-04-2021 Delta Troponin 6 Hr 232 pg/mL High 0-14 [facility] Comment on above: Result Comment: The term acute myocardial infarction should be used when there is acute myocardial injury with clinical evidence of acute myocardial ischemia and the rise or fall of serial Troponin HS values (delta troponin) greater than or equal to 15 pg/mL with at least one Troponin HS value above the 99th percentile reference range Performed By: #### C D:[id number], 8435763, 594651, 097500, 126012, 891859 #### [facility] Services [address] [place] [address] Pizzamaker: Robert Ybarra MD Troponin HS 6 Hr 337 pg/mL Critically abnormal 3-54 [facility] Comment on above: Result Comment: Crit ical Result(s) called at: 04:06:04 on 12/04/2021 by: REKHA Be to: SF Performed By: #### C D:690901671, 9192064, 986599, 910928, 932125, 597044 #### [facility] Services [address] [place] [address] Pizzamaker: Robert Ybarra MD TSHon 12-04-2021 TSH Qn 0.53 m[IU]/L Normal 0.36-3.74 [facility] Comment on above: Result Comment: High levels of serum biotin may interfere with this test. Performed By: #### C D:[id number], 1462383, 603845, 579906, 492800, 777342 #### [facility] Services [address] [place] [address] Pizzamaker: Robert Ybarra MD U DOA WITH FENTANYLon 2021 Amphetamines, U Negative Normal [facility] Comment on above: Result Comment: [...] non-medical purposes. Urine for Drugs of Abuse [place] Levels: Barbiturate 200 ng/ml PCP 25 ng/ml Cocaine 300 ng/ml Opiates 2000 ng/ml Amphetamines 1000 ng/ml Benzodiazepines 200 ng/ml THC 50 ng/ml EXTC 500 ng/ml Performed By: #### C D:[id number] ####[facility] [address] [place] [address] Medical Director: Robert Ybarra MD Barbituates, [facility] Comment on above: Performed By: #### C D:[id number] ####[facility] [address] [place], [place] [address]) [phone] Director: Robert Ybarra MD Benzodiazepines, Negative [facility] Comment on above: Performed By: #### C D:[id number] ####[facility] [address] [place] [id number]) [phone] Director: Robert Ybarra MD Cocaine, [facility] Comment on above: Performed By: #### C D:[id number] ####[facility] [address] [place], [place] [address]) [phone] Director: Robert Ybarra MD Ecstasy, Negative [facility] Comment on above: Performed By: #### C D:[id number] ####[facility] [address] [place], [place] [address]) [phone] Director: Robert Ybarra MD Fentanyl, Negative [facility] Comment on above: Result Comment: [...] be used for non-medical purposes. Urine Fentanyl [place] Level: 1 ng/ml Performed By: #### C D:[id number] ####[facility] [address] [place], [place] [address]) [phone] Director: Robert Ybarra MD Opiates, Negative [facility] Comment on above: Performed By: #### C D:468645386 ####[facility] [address] [place] [id number]) [phone] Director: Robert Ybarra MD PCP, Negative [facility] Comment on above: Performed By: #### C D:[id number] ####[facility] [address] [place] [id number]) [phone] Director: Robert Ybarra MD THC, U Negative [facility] Comment on above: Performed By: #### C D:[id number] ####[facility] [address] [place] [address] Medical Director: Robert Ybarra MD UAon 12-04-2021 Appearance, U Hazy [facility] Comment on above: Performed By: #### C D:[id number], 4292975, 790202, 442128, 549170, 065669 #### [facility] Laboratory Services [address] [place] [address] Pizzamaker: Robert Ybarra MD Bacteria, U Occasional [facility] Comment on above: Performed By: #### C D:[id number], 7957670, 253468, 372550, 099761, 591833 #### [facility] Services [address] [place] [address] Pizzamaker: Robert Ybarra MD Bilirubin, U Negative Normal [facility] Comment on above: Performed By: #### C D:527375920, 6773555, 256574, 198306, 419538, 556661 #### [facility] Laboratory Services [address] [place] [address] Pizzamaker: Robert Ybarra MD Blood, U Large Abnormal Negative [facility] Comment on above: Performed By: #### C D:842135499, 0932387, 476098, 130188, 881620, 690709 #### [facility] Laboratory Services [address] [place] [address] Pizzamaker: Robert Ybarra MD Color, U Yellow Normal [facility] Comment on above: Performed By: #### C D:392221124, 1702195, 868440, 157601, 968551, 136877 #### [facility] Services [address] [place] [address] Pizzamaker: Robert Ybarra MD Glucose Qual, U 150 mg/dl Abnormal Negative [facility] Comment on above: Performed By: #### C D:965579391, 1997775, 516972, 276262, 379680, 974028 #### [facility] Services [address] [place] [address] Pizzamaker: Robert Ybarra MD Ketones, U Trace Abnormal Negative [facility] Comment on above: Performed By: #### C D:[id number], 2733616, 862048, 207400, 094521, 783427 #### [facility] Services [address] [place] [address] Pizzamaker: Robert Ybarra MD Leukocyte Esterase, U Negative Normal Negative [facility] Comment on above: Performed By: #### C D:[id number], 5859184, 147603, 956153, 456130, 213461 #### [facility] Services [address] [place] [address] Pizzamaker: Robert Ybarra MD Mucous, U Occasional Normal [facility] Comment on above: Performed By: #### C D:[id number], 8744933, 131609, 316087, 185461, 195080 #### [facility] Services [address] [place] [address] Pizzamaker: Robert Ybarra MD Nitrite, U Negative Normal Negative [facility] Comment on above: Performed By: #### C D:[id number], 5468659, 651860, 731202, 084157, 115218 #### [facility] Services [address] [place] [address] Pizzamaker: Robert Ybarra MD pH, U 5.0 Normal 4.5-8.0 [facility] Comment on above: Performed By: #### C D:[id number], 7233200, 704893, 925835, 453727, 564054 #### [facility] Services [address] [place] [address] Pizzamaker: Robert Ybarra MD Protein, U Negative Normal Negative [facility] Comment on above: Performed By: #### C D:466494946, 8557238, 248962, 636769, 889332, 588435 #### [facility] Services [address] [place] [address] Pizzamaker: Robert Ybarra MD RBC/HPF, U 2 #/HPF Normal 0-3 [facility] Comment on above: Performed By: #### C D:[id number], 3580240, 216552, 265946, 370600, 167890 #### [facility] Services [address] [place] [address] Pizzamaker: Robert Ybarra MD Specific [place], U 1.009 Normal 1.001-1.035 [facility] Comment on above: Performed By: #### C D:173898217, 9409518, 456097, 436478, 829642, 055763 #### [facility] Services [address] [place] [address] Pizzamaker: Robert Ybarra MD Squamous Epithelial Cells, U 1 #/HPF Normal [facility] Comment on above: Performed By: #### C D:[id number], 7654215, 749513, 014349, 135832, 655325 #### [facility] Services [address] [place] [address] Pizzamaker: Robert Ybarra MD U MICRO Indicated Normal [facility] Comment on above: Performed By: #### C D:[id number], 3893207, 864266, 688513, 068989, 762920 #### [facility] Services [address] [place] [address] Pizzamaker: Robert Ybarra MD Urobilinogen Qual, U <2.0 mg/dl Normal <2.0 mg/dl [facility] Comment on above: Result Comment: EU/d l and mg/dl are equivalent units. Performed By: #### C D:[id number], 1787494, 616985, 400668, 826601, 626436 #### [facility] Services [address] [place] [address] Pizzamaker: Robert Ybarra MD WBC/HPF, U 2 #/HPF Normal 0-5 [facility] Comment on above: Performed By: #### C D:[id number], 3625148, 805154, 545173, 884045, 827954 #### [facility] Services [address] [place] [address] Pizzamaker: Robert Ybarra MD VIT D 25 LEVELon 12-04-2021 Vit D 25 16 ng/mL [facility] Comment on above: Result Comment: Less than 20 ng/ml Deficient 20-30 ng/ml Insufficient 30-100 ng/ml Sufficient Greater than 100 ng/ml Potential toxicity Patients who have recently undergone fluorescein dye angiography in the past 48 to 72 hours (or longer if renal insufficient) may have falsely elevated results. Performed By: #### 9 [id number] ####[facility] [address] [place] [address] Medical Director: Robert Ybarra MD [...] by: Silvia Hill DO 12/03/2021 10:59 PM SCABBLER Technologist: JUAN PABLO PHILIPPE Dictated By: SILVIA HILL DO Signed By: SILVIA HILL DO Signed Out: 12/03/21 23:59:23 Normal [facility] ALCOHOL SERUMon 12-03-2021 Alcohol, Serum <3 Normal [facility] Comment on above: Result Comment: Note : Alcohol values performed at [facility] are performed on Serum and reported in mg/dl, which is different then the state reporting units of g/dl which is performed on whole blood. Result reporting units are based on test methodology and are not interchangable. Performed By: #### C D:[id number], 9997574, 744650, 976138, 543869, 193458 #### [facility] Services [address] [place] [address] Pizzamaker: Robert Ybarra MD APTTon 12-03-2021 aPTT Coag (Bld) [Time] 30.4 s Normal 26.0-39.0 [facility] Comment on above: Performed By: #### C D:[id number], 5100275, 119673, 183346, 598643, 846788 #### [facility] Services [address] [place] [address] Pizzamaker: Robert Ybarra MD AUTO DIFFon 12-03-2021 Baso Count 0.09 x1000 Normal 0.00-0.20 [facility] Comment on above: Performed By: #### C D:[id number], 7347920, 324613, 846126, 835642, 791206 #### [facility] Laboratory Services [address] [place] [address] Pizzamaker: Robert Ybarra MD Basos % 0.4 % Normal [facility] Comment on above: Performed By: #### C D:116528089, 5396726, 909523, 810913, 085235, 115888 #### [facility] Laboratory Services [address] [place] [address] Pizzamaker: Robert Ybarra MD Eos Count 0.21 x1000 Normal 0.00-0.50 [facility] Comment on above: Performed By: #### C D:[id number], 8465716, 368692, 268889, 113234, 141549 #### [facility] Laboratory Services [address] [place] [address] Pizzamaker: Robert Ybarra MD Eosinophils/100 WBC (Bld) 0.9 % Normal [facility] Comment on above: Performed By: #### C D:[id number], 6135533, 213386, 315903, 702559, 009818 #### [facility] [address] [place] [address]12 Pizzamaker: Robert Ybarra MD Lymph Count 5.46 x1000 High 1.20-4.80 [facility] Comment on above: Performed By: #### C D:[id number], 1497670, 438486, 073602, 167347, 962294 #### [facility] [address] [place] [address] 37547 Pizzamaker: Robert Ybarra MD Lymphocytes/100 WBC (Bld) 24.2 % Normal [facility] Comment on above: Performed By: #### C D:[id number], 7920037, 561116, 547326, 690288, 865479 #### [facility] [address] [place] [address] 90953 Pizzamaker: Robert Ybarra MD Letcher Count 0.84 x1000 Normal 0.10-1.00 [facility] Comment on above: Performed By: #### C D:[id number], 9224365, 476357, 257987, 735675, 873299 #### [facility] [address] [place] [address] 34727 Pizzamaker: Robert Ybarra MD Monocytes/100 WBC (Bld) 3.7 % Normal [facility] Comment on above: Performed By: #### C D:[id number], 0370761, 977791, 789137, 960157, 195516 #### [facility] [address] [place], [place] [address] Pizzamaker: Robert Ybarra MD Neutrophil Count (ANC) 15.99 x1000 High 1.40-8.80 [facility] Comment on above: Performed By: #### C D:[id number], 7921643, 568799, 171425, 581683, 412377 #### [facility] [address] [place] [address] 93361 Pizzamaker: Robert Ybarra MD Neutrophils/100 WBC (Bld) 70.8 % Normal [facility] Comment on above: Performed By: #### C D:[id number], 9580039, 137233, 535930, 146720, 071715 #### [facility] [address] [place] [address] 89131 Pizzamaker: Robert Ybarra MD Scan Differential Diff Scd Normal [facility] Comment on above: Result Comment: Slid e reviewed by technologist. Performed By: #### C D:[id number], 8637937, 139560, 252600, 732140, 611818 #### [facility] [address] [place] [address] Pizzamaker: Robert Ybarra MD BLD GASon 12-03-[address] [facility] Comment on above: Performed By: #### C D:[id number], 6200522, 842327, 653989, 542662, 474209 #### [facility] [address] [place] [address] 96373 Pizzamaker: Robert Ybarra MD Base Excess -11.8 mmol/L [facility] Comment on above: Performed By: #### C D:[id number], 8704405, 410978, 787444, 561307, 146253 #### [facility] [address] [place] [address] 83356 Pizzamaker: Robert Ybarra MD ePAP [address] [facility] Comment on above: Performed By: #### C D:[id number], 9493196, 772647, 940547, 575921, 256546 #### [facility] [address] [place] [address] 41660 Pizzamaker: Robert Ybarra MD FIO2 100 % [facility] Comment on above: Performed By: #### C D:[id number], 7881823, 899426, 718171, 794398, 945105 #### [facility] [address] [place] [address] 10894 Pizzamaker: Robert Ybarra MD HCO3 (Bld) [Moles/Vol] 15.5 mmol/L Low 22.0-26.0 [facility] Comment on above: Performed By: #### C D:[id number], 7049802, 790924, 233525, 176499, 049475 #### [facility] [address] [place] [address] 44163 Pizzamaker: Robert Ybarra MD iPAP [address] [facility] Comment on above: Performed By: #### C D:[id number], 4249899, 641166, 973290, 594685, 233862 #### [facility] [address] [place] [address] 03188 Pizzamaker: Robert Ybarra MD O2 L/M 15.0 [facility] Comment on above: Performed By: #### C D:[id number], 1425889, 252133, 486881, 400416, 445638 #### [facility] [address] [place] [address]8411 Pizzamaker: Robert Ybarra MD Oxygen (Bld) [Partial pressure] 64.6 mm[Hg] Low 80.0-100.0 [facility] Comment on above: Performed By: #### C D:[id number], 5561011, 051372, 158760, 299352, 068482 #### [facility] [address] [place] [address] 27804 Pizzamaker: Robert Ybarra MD Oxygen saturation in Blood 86.6 % [facility] Comment on above: Performed By: #### C D:[id number], 2842315, 913230, 070908, 535867, 156151 #### [facility] [address] [place] [address] 01137 Pizzamaker: Robert Ybarra MD PCO2 41.0 mmHg Normal 35.0-45.0 [facility] Comment on above: Performed By: #### C D:[id number], 4964507, 559303, 964445, 637632, 947370 #### [facility] [address] [place] [address] Pizzamaker: Robert Ybarra MD PEEP 0.[address] [facility] Comment on above: Performed By: #### C D:[id number], 6062315, 942765, 735561, 448526, 232602 #### [facility] [address] [place] [address] Pizzamaker: Robert Ybarra MD pH (Bld) 7.196 [pH] Critically abnormal 7.350-7.450 [facility] Comment on above: Result Comment: RESU LTS CALLED WITH READBACK TO DR. SABRINA MOHAN 12/03/2021 21:02:41 EST. Performed By: #### C D:[id number], 5392901, 721522, 288952, 947599, 210320 #### [facility] [address] [place] [address] 90886 Pizzamaker: Robert Ybarra MD PO2/FiO2 Ratio 65 Low 300-500 [facility] Comment on above: Performed By: #### C D:[id number], 9301383, 407074, 732763, 314428, 151634 #### [facility] [address] [place] [address] 52885 Pizzamaker: Robert Ybarra MD Pressure Support. 0 cmH20 Normal [facility] Comment on above: Performed By: #### C D:[id number], 2245105, 117104, 215902, 585251, 719372 #### [facility] [address] [place] [address]15 Pizzamaker: Robert Ybarra MD RATE 0 bpm Normal [facility] Comment on above: Performed By: #### C D:[id number], 3012685, 068117, 304250, 855150, 927324 #### [facility] [address] [place] [address] Pizzamaker: Robert Ybarra MD TEMP 37.0 degC Normal <=37.0 [facility] Comment on above: Performed By: #### C D:[id number], 6441606, 731787, 713143, 575191, 258018 #### [facility] [address] [place] [address] 40873 Pizzamaker: Robert Ybarra MD Type of Specimen Venous Normal [facility] Comment on above: Result Comment: RR A RT = Right Artery RB ART = Right Brachial Artery LR ART = Left Radial Artery LB ART = Left Brachial Artery RF ART = Right Femoral Artery LF ART = Left Femoral Artery Performed By: #### C D:[id number], 4285721, 315291, 808393, 774620, 167033 #### [facility] [address] [place] [address] Pizzamaker: Robert Ybarra MD Ventilation Mask [facility] Comment on above: Performed By: #### C D:[id number], 6698326, 981835, 389885, 554966, 731592 #### [facility] [address] [place] [address] 20944 Pizzamaker: Robert Ybarra MD VT [address] [facility] Comment on above: Performed By: #### C D:844915239, 6998384, 050672, 924839, 788077, 381729 #### [facility] [address] [place] [address] 17166 Pizzamaker: Robert Ybarra MD COMPMETAon 12-03-2021 Albumin/Globulin [Mass ratio] 1.3 {ratio} [facility] Comment on above: Performed By: #### C D:524199585, 8404296, 961205, 780477, 100696, 501200 #### [facility] [address] [place] [address] Pizzamaker: Robert Ybarra MD GFR AA [address] [facility] Comment on above: Result Comment: Afri can Bulgarian GFR Calc Medical judgement is necessary to [...] for drug dosing. Performed By: #### C D:[id number], 2522746, 614920, 718951, 081863, 707748 #### [facility] [address] [place] [address] 46712 Pizzamaker: Robert Ybarra MD Glomerular Filtration Rate 30 mL/min/1.73m? Normal [facility] Comment on above: Result Comment: [...] for drug dosing. Performed By: #### C D:[id number], 1709711, 620422, 086027, 010112, 760861 #### [facility] [address] [place] [address] 24735 Pizzamaker: Robert Ybarra MD Osmolality [Osmolality] 297 mosm/kg High 275-295 [facility] Comment on above: Performed By: #### C D:924980767, 0488306, 117699, 224550, 810131, 255380 #### [facility] [address] [place] [address] 78587 Pizzamaker: Robert Ybarra MD Urea nitrogen/Creatinine [Mass ratio] 27.3 mg/mg [facility] Comment on above: Performed By: #### C D:[id number], 2158434, 320616, 255623, 110662, 198088 #### [facility] [address] [place] [address] 03592 Pizzamaker: Robert Ybarra MD Albumin [Mass/Vol] 3.2 g/dL Low 3.4-5.0 [facility] Comment on above: Performed By: #### C D:[id number], 6126939, 972534, 981773, 848720, 043472 #### [facility] [address] [place] [address] Pizzamaker: Robert Ybarra MD Alk Phos 60 unit/L Normal 45-117 [facility] Comment on above: Performed By: #### C D:[id number], 4057192, 609252, 075209, 962473, 267726 #### [facility] [address] [place] [address] 77653 Pizzamaker: Robert Ybarra MD Bilirubin [Mass/Vol] 0.26 mg/dL Normal 0.20-1.00 [facility] Comment on above: Result Comment: Use of this assay is not recommended for patients undergoing treatment with eltrombopag due to the potential for falsely elevated results. Performed By: #### C D:[id number], 8315054, 031292, 745278, 553443, 684239 #### [facility] [address] [place] [address] 08327 Pizzamaker: Robert Ybarra MD Calcium [Mass/Vol] 8.9 mg/dL Normal 8.5-10.5 [facility] Comment on above: Performed By: #### C D:066733384, 7065233, 191450, 164189, 956168, 969558 #### [facility] [address] [place], [place] [address] Pizzamaker: Robert Ybarra MD Chloride [Moles/Vol] 105 mmol/L Normal 100-109 [facility] Comment on above: Performed By: #### C D:765517239, 8922530, 017124, 937430, 464950, 683445 #### [facility] [address] [place] [address] 55761 Pizzamaker: Robert Ybarra MD CO2 [Moles/Vol] 18.9 mmol/L Low 21.0-32.0 [facility] Comment on above: Performed By: #### C D:[id number], 2677224, 766478, 540193, 131477, 665662 #### [facility] [address] [place] [address] 99423 Pizzamaker: Robert Ybarra MD Creatinine [Mass/Vol] 1.6 mg/dL High 0.6-1.0 [facility] Comment on above: Performed By: #### C D:[id number], 5102700, 165555, 824844, 292122, 208521 #### [facility] [address] [place] [address] 53491 Pizzamaker: Robert Ybarra MD Globulin (S) [Mass/Vol] 2.4 g/dL Normal [facility] Comment on above: Performed By: #### C D:534381900, 0909712, 946411, 575033, 558932, 802703 #### [facility] [address] [place], [place] [address] Pizzamaker: Robert Ybarra MD Glucose [Mass/Vol] 270 mg/dL High 72-100 [facility] Comment on above: Result Comment: Shireen puncture should occur prior to sulfasalazine administration due to the potential for falsely depressed results. Venipuncture should occur prior to sulfapyridine administration due to the potential falsely elevated results. Baseline assay values before administration of sulfasalazine and sulfapyridine therapy would not be affected. Performed By: #### C D:[id number], 2310241, 597539, 866746, 284798, 163859 #### [facility] [address] [place] [address] 03898 Pizzamaker: Robert Ybarra MD GOT 61 unit/L High 15-37 [facility] Comment on above: Result Comment: Resu lts may be increased due to hemolysis. Venipuncture should occur prior to sulfasalazine and/or sulfapyridine administration due to the potential for falsely depressed results. Baseline assay values before administration of sulfasalazine and sulfapyridine therapy would not be affected. Performed By: #### C D:[id number], 7775730, 840803, 316010, 263406, 879418 #### [facility] [address] [place] [address] 76588 Pizzamaker: Robert Ybarra MD GPT 49 unit/L Normal 13-56 [facility] Comment on above: Result Comment: Shireen puncture should occur prior to sulfasalazine and/or sulfapyridine administration due to the potential for falsely depressed results. Baseline assay values before administration of sulfasalazine and sulfapyridine therapy would not be affected. Performed By: #### C D:[id number], 7136247, 450162, 641631, 578603, 066765 #### [facility] [address] [place] [address] 86913 Pizzamaker: Robert Ybarra MD Potassium [Moles/Vol] 5.5 mmol/L High 3.5-5.1 [facility] Comment on above: Result Comment: Resu lts may be increased due to hemolysis. Performed By: #### C D:[id number], 4240565, 299425, 099391, 298219, 424291 #### [facility] [address] [place] [address] 83499 Pizzamaker: Robert Ybarra MD Protein [Mass/Vol] 5.6 g/dL Low 6.0-8.5 [facility] Comment on above: Performed By: #### C D:[id number], 7156437, 641859, 922113, 109363, 595034 #### [facility] [address] [place] [address] 01752 Pizzamaker: Robert Ybarra MD Sodium [Moles/Vol] 138 mmol/L Normal 135-145 [facility] Comment on above: Performed By: #### C D:[id number], 7656420, 650428, 581670, 524407, 096297 #### [facility] [address] [place], [place] [address] Pizzamaker: Robert Ybarra MD Urea nitrogen [Mass/Vol] 45 mg/dL High 09-02 [facility] Comment on above: Performed By: #### C D:[id number], 0120344, 815356, 665354, 036965, 325460 #### [facility] [address] [place] [address] Pizzamaker: Robert Ybarra MD CT ABD PELVIS WO [...] Limited without contrast. Electronically signed by: David Barraaz MD 12/03/2021 7:49 PM SCABBLER Normal [facility] Comment on above: Order Comment: [...] by: David Barraza MD 12/03/2021 7:37 PM SCABBLER Technologist: KATJA GARVIN ND Dictated By: DAVID BARRAZA MD Signed By: DAVID BARRAZA MD Signed Out: 12/03/21 20:37:46 Normal [facility] CT CERVICAL SPINE WO CONTRAS [...] by: David Barraza MD 12/03/2021 7:40 PM SCABBLER Technologist: KATJA GARVIN ND Dictated By: DAVID BARRAZA MD Signed By: DAVID BARRAZA MD Signed Out: 12/03/21 20:40:23 Normal [facility] CT CHEST WO CONTRSTon 2021 [...] by: David Barraza MD 12/03/2021 7:46 PM SCABBLER Technologist: KATJA GARVIN ND Dictated By: DAVID BARRAZA MD Signed By: DAVID BARRAZA MD Signed Out: 12/03/21 20:46:42 Normal [facility] ED Pre-Arrival Formon 2021 ED Pre-Arrival Form Pre-Arrival Summary Name: ADRYAN-TRAUMA, Current Date: 12/03/2021 19:55:10 EST Gender: Date of : Age: Pre-Arrival Type: EMS ETA: 12/03/2021 20:08:00 EST Primary Care Physician: Presenting Problem: Pre-Arrival User: Laura Smith RN Referring Source: Location: 1 [facility] Emergency Department Critical access [place] [address] Notes: Vital Signs: Doctor Call Back: DNR Status: Miscellaneous Issues: Normal [facility] HEMOon 12-03-2021 DIFF? No Normal [facility] Comment on above: Performed By: #### C D:[id number], 7358239, 518157, 708191, 987065, 539235 #### [facility] [address] [place] [address] 85937 Pizzamaker: Robert Ybarra MD Nucleated RBC 0 /100WBC Normal [facility] Comment on above: Performed By: #### C D:[id number], 1702540, 640345, 884077, 640142, 820666 #### [facility] [address] [place] [address] 53333 Pizzamaker: Robert Ybarra MD [facility] Actions See Notes Abnormal [facility] Comment on above: Result Comment: Scan Slide. Perform manual diff if needed. Scan Slide. Path Review if Required. SNV Performed By: #### C D:[id number], 1191101, 767525, 441169, 472521, 264399 #### [facility] [address] [place] [address] 51546 Pizzamaker: Robert Ybarra MD Erythrocyte distribution width (RBC) [Ratio] 14.6 % High 11.5-14.5 [facility] Comment on above: Performed By: #### C D:[id number], 2445559, 071509, 019810, 712681, 543851 #### [facility] [address] [place] [address] 15444 Pizzamaker: Robert Ybarra MD Hematocrit (Bld) [Volume fraction] 31.2 % Low 36.0-46.0 [facility] Comment on above: Performed By: #### C D:[id number], 7017925, 639365, 266892, 230926, 136124 #### [facility] [address] [place] [address] 90879 Pizzamaker: Robert Ybarra MD Hemoglobin (Bld) [Mass/Vol] 10.1 g/dL Low 12.0-16.0 [facility] Comment on above: Performed By: #### C D:[id number], 3872762, 424122, 317295, 053267, 301459 #### [facility] [address] [place] [address] 13790 Pizzamaker: Robert Ybarra MD Instr WBC 22.6 Normal [facility] Comment on above: Performed By: #### C D:[id number], 2813946, 790164, 751238, 443891, 947545 #### [facility] [address] [place] [address] 91306 Pizzamaker: Robert Ybarra MD MCH (RBC) [Entitic mass] 29.6 pg Normal 27.0-34.0 [facility] Comment on above: Performed By: #### C D:[id number], 6269435, 287018, 265814, 175594, 148423 #### [facility] [address] [place] [address] 66504 Pizzamaker: Robert Ybarra MD MCHC (RBC) [Mass/Vol] 32.6 g/dL Normal 32.0-37.0 [facility] Comment on above: Performed By: #### C D:[id number], 0097646, 185663, 366179, 538904, 518870 #### [facility] [address] [place] [address] 62930 Pizzamaker: Robert Ybarra MD MCV (RBC) [Entitic vol] 90.9 fL Normal 80.0-100.0 [facility] Comment on above: Performed By: #### C D:[id number], 6804863, 321258, 234259, 472362, 048176 #### [facility] [address] [place] [address] Pizzamaker: Robert Ybarra MD MDW 16.08 Normal 13.98-20.00 [facility] Comment on above: Result Comment: [...] risk of Sepsis. Performed By: #### C D:[id number], 4991462, 021632, 086861, 863766, 433693 #### [facility] [address] [place] [address] 98488 Pizzamaker: Robert Ybarra MD Platelet 347 x1000 Normal 150-450 [facility] Comment on above: Performed By: #### C D:[id number], 6879759, 443022, 222050, 755767, 864419 #### [facility] [address] [place] [address] 85620 Pizzamaker: Robert Ybarra MD Platelet mean volume (Bld) [Entitic vol] 6.7 fL Low 7.4-10.4 [facility] Comment on above: Performed By: #### C D:[id number], 5155933, 509615, 133038, 878126, 531837 #### [facility] [address] [place] [address] 08850 Pizzamaker: Robert Ybarra MD RBC 3.43 x10 Low 4.20-5.40 [facility] Comment on above: Result Comment: Note : RBC morphology is normal unless otherwise stated. Evaluation performed only if differential is requested. Performed By: #### C D:[id number], 5812903, 930111, 260269, 856657, 677835 #### [facility] [address] [place] [address] 56088 Pizzamaker: Robert Ybarra MD WBC 22.6 x10 High 4.5-11.0 [facility] Comment on above: Performed By: #### C D:[id number], 9735027, 701305, 795485, 432901, 909408 #### [facility] [address] [place], [place] [address] Pizzamaker: Robert Ybarra MD I8on 12-03-2021 Anion gap [Moles/Vol] 16 mmol/L Normal 10-20 [facility] Comment on above: Performed By: #### C D:[id number] ####[facility] [address] [place], [place] [address] Medical Director: Robert Ybarra MD Chloride [Moles/Vol] 104 mmol/L Normal 98-109 [facility] Comment on above: Performed By: #### C D:[id number] ####[facility] [address] [place] [address] Medical Director: Robert Ybarra MD CO2 [Moles/Vol] 21 mmol/L Low 24-32 [facility] Comment on above: Performed By: #### C D:[id number] ####[facility] [address] [place] [address] Medical Director: Robert Ybarra MD Creatinine [Mass/Vol] 1.7 mg/dL High 0.6-1.3 [facility] Comment on above: Performed By: #### C D:[id number] ####[facility] [address] [place], [place] [address]) [phone] Director: Robert Ybarra MD Glucose [Mass/Vol] 268 mg/dL High 72-110 [facility] Comment on above: Performed By: #### C D:[id number] ####[facility] [address] [place], [place] [address]) [phone] Director: Robert Ybarra MD Hct, I-Stat 30 %PCV Low 40-54 [facility] Comment on above: Performed By: #### C D:[id number] ####[facility] [address] [place] [id number]) [phone] Director: Robert Ybarra MD Hemoglobin (Bld) [Mass/Vol] 10.2 g/dL Low 14.0-18.0 [facility] Comment on above: Result Comment: The calculation of hemoglobin from hematocrit assumes a normal MCHC. Performed By: #### C D:[id number] ####[facility] [address] [place] [id number]) [phone] Director: Robert Ybarra MD Ionized Calcium, I-Stat 1.24 mmol/L Normal 1.12-1.32 [facility] Comment on above: Performed By: #### C D:[id number] ####[facility] [address] [place], [place] [address]) [phone] Director: Robert Ybarra MD Potassium [Moles/Vol] 5.2 mmol/L High 3.7-5.1 [facility] Comment on above: Performed By: #### C D:[id number] ####[facility] [address] [place], [place] [address]) [phone] Director: Robert Ybarra MD Sodium [Moles/Vol] 134 mmol/L Low 138-146 [facility] Comment on above: Performed By: #### C D:[id number] ####[facility] [address] [place] [address] Medical Director: Robert Ybarra MD Urea nitrogen [Mass/Vol] 43 mg/dL High 8-26 [facility] Comment on above: Performed By: #### C D:[id number] ####[facility] [id number] [place] [address] Medical Director: Robert Ybarra MD PT INRon 12-03-2021 INR Coag (PPP) [Relative time] 1.0 {INR} Normal [facility] Comment on above: Result Comment: INR Reference Range: Normal reference range for INR on patients not on anticoagulant therapy: 0.9-1.1 General therapeutic range for patients on anticoagulant therapy: 2.0-3.5 Performed By: #### C D:[id number] #### [facility] [address] [place] [address] Pizzamaker: Robert Ybarra MD Protime Patient 11.7 seconds Normal 9.8-13.4 [facility] Comment on above: Performed By: #### C D:[id number] #### [facility] [address] [place] [address] Pizzamaker: Robert Ybarra MD TROPONIN HS 0HRon 12-03-2021 Troponin HS 0 Hr 66 pg/mL High 3-54 [facility] Comment on above: Performed By: #### C D:[id number], [id number], [id number] #### [facility] [address] [place] [address] Pizzamaker: Robert Ybarra MD XR CHEST PORTABLEon 12-03-19 [...] by: David Barraza MD 12/03/2021 7:26 PM SCABBLER Technologist: SR JOSE MARTIN,HENRY Dictated By: DAVID BARRAZA MD Signed By: DAVID BARRAZA MD Signed Out: 12/03/21 20:26:51 Normal [facility] XR PELVIS APon 12-03-2021 XR [...] by: David Barraza MD 12/03/2021 7:26 PM SCABBLER Technologist: SR JOSE MARTIN,RL Dictated By: DAVID BARRAZA MD Signed By: DAVID BARRAZA MD Signed Out: 12/03/21 20:26:00 Normal [facility] pH Venouson 12-03-2021 pH Venous 7.196 Critically abnormal 7.310-7.410 [facility] Comment on above: Result Comment: RESU LTS CALLED WITH READBACK TO DR. SABRINA OMHAN 12/03/2021 21:04:42 EST. Performed By: #### C D:[id number] ####[facility] [id number] [place] [address] Medical Director: Robert Ybarra MD XR Shoulder - left 3 Viewson 07-14-2021 IMPRESSION: 1. Advanced glenoid humeral osteoarthritis and chronic rotator cuff arthropathy with increased glenoid humeral joint space narrowing compared to the prior study. Elephant Keeper: PSCB Transcribe Date/Time: Jul 14 2021 9:03A [...] left upper lung. DIVISION OF RADIOLOGY Provider, [facility] - 07/14/2021 * * *Final Report* * [...] space narrowing compared to the prior study. Elephant Keeper: PSCB Transcribe Date/Time: Jul 14 2021 9:03A Dictated by : MIRNA VIZCAINO MD This examination was interpreted and the report reviewed and electronically signed by: MIRNA VIZCAINO MD on Jul 14 2021 9:05AM EST [facility] Radiology Study observation (narrative) Mira archibald [facility] XR Shoulder - left 3 ViewsOr dered By: [facility] Provider on 07-14-2021 [facility] Vital Signs Date Time Vital Sign Value Performing Clinician Facility 02-13-2025 13:33-0400 Body temperature 97.7 [degF] Lien Bang DPM Work Phone: [facility] 02-13-2025 13:33-0400 Diastolic blood pressure 68 mm[Hg] Lien Bang DPM Work Phone: [facility] 02-13-2025 13:33-0400 Heart rate 101 /min Lien Bang DPM Work Phone: [facility] 02-13-2025 13:33-0400 Respiratory rate 20 /min Lien Bang DPM Work Phone: [facility] 02-13-2025 13:33-0400 SaO2% (BldA) [Mass fraction] 98 % Lien Bang DPM Work Phone: [facility] 02-13-2025 13:33-0400 Systolic blood pressure 119 mm[Hg] Lien Bang DPM Work Phone: [facility] 01-16-2025 13:41-0500 Body temperature 97.59 [degF] Lien Bang DPM Work Phone: [facility] 01-16-2025 13:41-0500 Diastolic blood pressure 73 mm[Hg] Lien Bang DPM Work Phone: [facility] 01-16-2025 13:41-0500 Heart rate 76 /min Lien Bang DPM Work Phone: [facility] 01-16-2025 13:41-0500 SaO2% (BldA) [Mass fraction] 96 % Liencece Bang DPM Work Phone: [facility] 01-16-2025 13:41-0500 Systolic blood pressure 132 mm[Hg] Lien Bang DPM Work Phone: [facility] 01-08-2025 13:32-0500 Body temperature 98.1 [degF] Pierce Chi MD Work Phone: [facility] 01-08-2025 13:32-0500 Diastolic blood pressure 74 mm[Hg] Pierce Chi MD Work Phone: [facility] 01-08-2025 13:32-0500 Heart rate 95 /min Pierce Chi MD Work Phone: [facility] 01-08-2025 13:32-0500 SaO2% (BldA) [Mass fraction] 97 % Pierce Chi MD Work Phone: [facility] 01-08-2025 13:32-0500 Systolic blood pressure 165 mm[Hg] Pierce Chi MD Work Phone: [facility] 01-04-2025 08:05-0500 Body height 152.4 cm Tyesha Singleton MD Work Phone: [facility] 01-04-2025 08:05-0500 Body mass index (BMI) [Ratio] 20.24 kg/m2 Tyesha Singleton MD Work Phone: [facility] 01-04-2025 08:05-0500 Body weight 47 kg Tyesha Singleton MD Work Phone: [facility] 01-04-2025 08:05-0500 Diastolic blood pressure 59 mm[Hg] Tyesha Singleton MD Work Phone: [facility] Comment on above: per facility paperwork BP is at baseline 01-04-2025 08:05-0500 Heart rate 84 /min Tyesha Singleton MD Work Phone: [facility] 01-04-2025 08:05-0500 Respiratory rate 16 /min Tyesha Singlteon MD Work Phone: [facility] 01-04-2025 08:05-0500 Systolic blood pressure 165 mm[Hg] Tyesha Singleton MD Work Phone: [facility] Comment on above: per facility paperwork BP is at baseline 01-02-2025 08:44-0500 Diastolic blood pressure 72 mm[Hg] Grupo ochoa MD Work Phone: [facility] Comment on above: recheck 01-02-2025 08:44-0500 Systolic blood pressure 152 mm[Hg] Grupo Mendez MD Work Phone: [facility] Comment on above: recheck 01-02-2025 08:41-0500 Body mass index (BMI) [Ratio] 20.24 kg/m2 Grupo Mendez MD Work Phone: [facility] 01-02-2025 08:41-0500 Body temperature 97.9 [degF] Grupo Mendez MD Work Phone: [facility] 01-02-2025 08:41-0500 Body weight 47 kg Grupo Mendez MD Work Phone: [facility] 01-02-2025 08:41-0500 Heart rate 85 /min Grupo Mendez MD Work Phone: [facility] 01-02-2025 08:41-0500 Respiratory rate 18 /min Grupo Mendez MD Work Phone: [facility] 01-02-2025 08:41-0500 SaO2% (BldA) [Mass fraction] 96 % Grupo Mendez MD Work Phone: [facility] 12-26-2024 13:07-0500 Body temperature 97.3 [degF] Lien Bang DPM Work Phone: [facility] 12-26-2024 13:07-0500 Diastolic blood pressure 79 mm[Hg] Lien Bang DPM Work Phone: [facility] 12-26-2024 13:07-0500 Heart rate 96 /min Lien Bang DPM Work Phone: [facility] 12-26-2024 13:07-0500 SaO2% (BldA) [Mass fraction] 95 % Lien Bang DPM Work Phone: [facility] 12-26-2024 13:07-0500 Systolic blood pressure 164 mm[Hg] Lien Bang DPM Work Phone: [facility] 12-02-2024 12:26-0500 SaO2% (BldA) [Mass fraction] 92 % UNKNOWN PROVIDER [facility] Comment on above: Order Comment: Specimen Type: ARTERIAL B LOOD SPECIMENOrdering Facility: [facility] Address: [address] [place] [id number] Performed By: #### A LLBG ####[id number] [id number] [place], [place] [id number] 10-29-2024 16:27-0500 Diastolic blood pressure 72 mm[Hg] Ab Benson MD Work Phone: [facility] Comment on above: trupbp 10-29-2024 16:27-0500 Heart rate 66 /min Ab Benson MD Work Phone: [facility] 10-29-2024 16:27-0500 Systolic blood pressure 159 mm[Hg] Ab Benson MD Work Phone: [facility] Comment on above: trupbp 10-29-2024 16:24-0500 Body mass index (BMI) [Ratio] 20.67 kg/m2 Ab Benson MD Work Phone: [facility] 10-29-2024 16:24-0500 Body temperature 99.3 [degF] Ab Benson MD Work Phone: [facility] 10-29-2024 16:24-0500 Body weight 48 kg Ab Benson MD Work Phone: [facility] 10-29-2024 16:24-0500 SaO2% (BldA) [Mass fraction] 97 % Ab Benson MD Work Phone: [facility] 09-17-2024 15:04-0500 Body mass index (BMI) [Ratio] 22.48 kg/m2 Grupo Mendez MD Work Phone: [facility] 09-17-2024 15:04-0500 Body weight 52.2 kg Grupo Mendez MD Work Phone: [facility] 09-17-2024 15:04-0500 Diastolic blood pressure 88 mm[Hg] Grupo ochoa MD Work Phone: [facility] 09-17-2024 15:04-0500 Heart rate 92 /min Grupo Mendez MD Work Phone: [facility] 09-17-2024 15:04-0500 Respiratory rate 16 /min Grupo Mendez MD Work Phone: [facility] 09-17-2024 15:04-0500 SaO2% (BldA) [Mass fraction] 99 % Grupo Mendez MD Work Phone: [facility] 09-17-2024 15:04-0500 Systolic blood pressure 166 mm[Hg] Grupo Mendez MD Work Phone: [facility] 09-13-2024 10:45-0400 Diastolic blood pressure 60 mm[Hg] Migdalia Archibald Work Phone: [facility] 09-13-2024 10:45-0400 Systolic blood pressure 150 mm[Hg] Migdalia Cramer MD Work Phone: [facility] 09-13-2024 10:20-0400 Body mass index (BMI) [Ratio] 22.09 kg/m2 Migdalia Cramer MD Work Phone: [facility] 09-13-2024 10:20-0400 Body weight 51.3 kg Migdalia Cramer MD Work Phone: [facility] 09-13-2024 10:20-0400 Heart rate 98 /min Migdalia Cramer MD Work Phone: [facility] 08-14-2024 10:36-0400 Body mass index (BMI) [Ratio] 22 kg/m2 Migdalia Cramer MD Work Phone: [facility] 08-14-2024 10:36-0400 Body temperature 97.59 [degF] Migdalia Cramer MD Work Phone: [facility] 08-14-2024 10:36-0400 Body weight 51.1 kg Migdalia Cramer MD Work Phone: [facility] 08-14-2024 10:36-0400 Diastolic blood pressure 68 mm[Hg] Migdalia Archibald Work Phone: [facility] 08-14-2024 10:36-0400 Heart rate 91 /min Migdalia Cramer MD Work Phone: [facility] 08-14-2024 10:36-0400 SaO2% (BldA) [Mass fraction] 96 % Migdalia Cramer MD Work Phone: [facility] 08-14-2024 10:36-0400 Systolic blood pressure 125 mm[Hg] Migdalia Cramer MD Work Phone: [facility] 07-12-2024 09:59-0400 Diastolic blood pressure 70 mm[Hg] Migdalia Archibald Work Phone: [facility] 07-12-2024 09:59-0400 Systolic blood pressure 142 mm[Hg] Migdalia Cramer MD Work Phone: [facility] 07-12-2024 09:31-0400 Body mass index (BMI) [Ratio] 21.23 kg/m2 Migdalia Cramer MD Work Phone: [facility] 07-12-2024 09:31-0400 Body weight 49.3 kg Migdalia Cramer MD Work Phone: [facility] 07-12-2024 09:31-0400 Heart rate 80 /min Migdalia Cramer MD Work Phone: [facility] 04-13-2023 15:23-0400 Body temperature 98.01 [degF] Willie Mitsch ENVIRONMENT COORDINATOR.DETENTION SERGEANT Work Phone: [facility] 04-13-2023 15:23-0400 Body weight 54.07 kg Willei Mitsch ENVIRONMENT COORDINATOR.DETENTION SERGEANT Work Phone: [facility] 04-13-2023 15:23-0400 Diastolic blood pressure 63 mm[Hg] Willie Mitsch ENVIRONMENT COORDINATOR.DETENTION SERGEANT Work Phone: [facility] 04-13-2023 15:23-0400 Heart rate 80 /min Willie Mitsch ENVIRONMENT COORDINATOR.DETENTION SERGEANT Work Phone: [facility] 04-13-2023 15:23-0400 Systolic blood pressure 125 mm[Hg] Willie Mitsch ENVIRONMENT COORDINATOR.DETENTION SERGEANT Work Phone: [facility] 03-29-2023 15:26-0400 Body weight 53.34 kg Willie Mitsch ENVIRONMENT COORDINATOR.DETENTION SERGEANT Work Phone: [facility] 03-29-2023 15:26-0400 Diastolic blood pressure 71 mm[Hg] Willie Mitsch ENVIRONMENT COORDINATOR.DETENTION SERGEANT Work Phone: [facility] 03-29-2023 15:26-0400 Heart rate 80 /min Willie Mitsch ENVIRONMENT COORDINATOR.DETENTION SERGEANT Work Phone: [facility] 03-29-2023 15:26-0400 Systolic blood pressure 150 mm[Hg] Willie Mitsch ENVIRONMENT COORDINATOR.DETENTION SERGEANT Work Phone: [facility] 03-17-2023 14:18-0400 Body weight 54.88 kg Willie Mitsch ENVIRONMENT COORDINATOR.DETENTION SERGEANT Work Phone: [facility] 03-17-2023 14:18-0400 Diastolic blood pressure 67 mm[Hg] Willie Mitsch ENVIRONMENT COORDINATOR.DETENTION SERGEANT Work Phone: [facility] 03-17-2023 14:18-0400 Heart rate 86 /min Willie Mitsch ENVIRONMENT COORDINATOR.DETENTION SERGEANT Work Phone: [facility] 03-17-2023 14:18-0400 Systolic blood pressure 146 mm[Hg] Willie Mitsch ENVIRONMENT COORDINATOR.DETENTION SERGEANT Work Phone: [facility] 10-23-2022 08:59-0500 Body weight 55.48 kg Migdalia Cramer MD Work Phone: [facility] 10-23-2022 08:59-0500 Diastolic blood pressure 82 mm[Hg] Migdalia Archibald Work Phone: [facility] 10-23-2022 08:59-0500 Heart rate 87 /min Migdalia Cramer MD Work Phone: [facility] 10-23-2022 08:59-0500 Systolic blood pressure 145 mm[Hg] Migdalia Cramer MD Work Phone: [facility] 05-08-2022 08:07-0400 Diastolic blood pressure 70 mm[Hg] Migdalia Archibald Work Phone: [facility] 05-08-2022 08:07-0400 Heart rate 70 /min Migdalia Cramer MD Work Phone: [facility] 05-08-2022 08:07-0400 Systolic blood pressure 130 mm[Hg] Migdalia Cramer MD Work Phone: [facility] 05-08-2022 08:05-0400 Body weight 53.48 kg Migdalia Cramer MD Work Phone: [facility] 04-03-2022 08:08-0400 Body temperature 98.01 [degF] Migdalia Cramer MD Work Phone: [facility] 04-03-2022 08:08-0400 Body weight 52.34 kg Migdalia Cramer MD Work Phone: [facility] 04-03-2022 08:08-0400 Diastolic blood pressure 68 mm[Hg] Migdalia Archibald Work Phone: [facility] 04-03-2022 08:08-0400 Heart rate 76 /min Migdalia Cramer MD Work Phone: [facility] 04-03-2022 08:08-0400 Systolic blood pressure 137 mm[Hg] Migdalia Cramer MD Work Phone: [facility] Encounters Encounter Date Encounter Type Care Provider Facility Start: 06-20-2025 ambulatory Mario RODAS Facili ty:[facility] Start: 06-04-2025 ambulatory Mario RODAS Facili ty:[facility] Start: 05-28-2025 End: 05-28-2025 Telephone encounter Tyesha Singleton MD Work Phone: Rheumatology Comment on above: Results (Outside lab results) Start: 05-27-2025 ambulatory Mario RODAS Facili ty:[facility] Start: 05-01-2025 End: 05-01-2025 Telephone encounter Tyesha Singleton MD Work Phone: Rheumatology Start: 04-29-2025 ambulatory Mario RODAS Facili ty:[facility] Start: 04-26-2025 ambulatory Mario RODAS Facili ty:[facility] Start: 04-10-2025 ambulatory Mario RODAS Facili ty:[facility] Start: 04-10-2025 Registered Referred [facility] Start: 04-01-2025 End: 04-01-[address] [facility] Work Phone: Start: 04-01-2025 End: 04-01-2025 Departed Referred Mario Mak MD -[facility] Start: 04-01-2025 Registered Referred Mario Mak MD -[facility] Start: 04-01-2025 End: 04-01-2025 ambulatory Mario RODAS Facility:[facility] Start: 03-12-2025 End: 03-12-[address] [facility] Work Phone: Start: 03-12-2025 End: 03-12-2025 Departed Referred Mario Mak MD -[facility] Start: 03-12-2025 Registered Referred Mario Mak MD -[facility] Start: 03-12-2025 End: 03-12-2025 ambulatory Mario RODAS Facility:[facility] Start: 03-04-2025 End: 03-04-[address] [facility] Work Phone: Start: 03-04-2025 End: 03-04-2025 Departed Referred Mario Mak MD -[facility] Start: 03-04-2025 End: 03-04-2025 ambulatory Mario RODAS Facility: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 Work Phone: Start: 02-04-2025 End: 02-04-2025 [facility] Start: 02-04-2025 Registered Referred Mario Mak MD -[facility] Start: 02-04-2025 End: 02-04-2025 ambulatory Mario RODAS Facility:[facility] Start: 01-16-2025 End: 01-18-2025 Refill Willie Kaur APRN.CNP Work Phone: Family Medicine Comment on above: Refill Request Start: 01-16-2025 End: 01-16-2025 ambulatory LIEN BANG Facility:[facility] Start: 01-16-2025 End: 01-16-2025 Patient encounter procedure Lien Bang DPM Work Phone: Plastic Surgery Comment on above: Pressure injury of r ight ankle, stage 3 (HCC) (Primary Dx) Start: 01-15-2025 End: 01-15-[address] [facility] Work Phone: Start: 01-15-2025 End: 01-15-2025 Departed Referred Mario Mak MD -[facility] Start: 01-15-2025 End: 01-15-2025 ambulatory Mario RODAS Facility:[facility] Start: 01-08-2025 End: 01-08-2025 Patient encounter [...] Start: 01-08-2025 End: 01-08-2025 ambulatory UNKNOWN PROVIDER Facility:[facility] Start: 01-07-2025 ambulatory Mario RODAS Facili ty:[facility] Start: 01-07-2025 Registered Referred Mario Mak MD [facility] Start: 01-04-2025 End: 01-04-2025 ambulatory MIGDALIA CRAMER Facility:[facility] Start: 01-04-2025 End: 01-04-2025 Office outpatient new 45 minutes Tyesha Singleton MD Work Phone: Rheumatology Comment on above: Pseudogout (Primary Dx); Ankle swelling, right; Medication monitoring encounter Start: 01-03-2025 End: 01-10-2025 Telephone encounter Migdalia Cramer MD Work Phone: [address] [place] [address] Comment on above: Patient Update Start: 01-02-2025 End: 01-02-2025 Telephone encounter Aditi ALLEN Work Phone: Hematology/Oncology Comment on above: Distress Assessment Start: 01-02-2025 End: 01-02-2025 ambulatory MIGDALIA CRAMER Facility:[facility] Start: 01-02-2025 End: 01-02-2025 ambulatory Grupo Mendez MD Work Phone: Hematology/Oncology Comment on above: Leukocytosis, unspec ified type (Primary Dx); Normocytic anemia; Vitamin B6 deficiency; Cellulitis of right ankle Start: 01-02-2025 End: 01-02-2025 Patient encounter procedure Grupo Mendez MD Work Phone: Hematology/Oncology Start: 2024 ambulatory Mario Coburn ty:[facility] Start: 2024 Registered Referred Mario Mak MD -[facility] Start: 12-26-2024 End: 12-26-2024 Telephone encounter Migdalia Cramer MD Work Phone: Internal Medicine [place] Comment on above: rehab discharge conc erns [...] Refill Willie Kaur APRN.CNP Work Phone: Family [facility] Comment on above: Refill Request Start: 12-24-2024 ambulatory Mario Coburn ty:[facility] Start: 12-24-2024 Registered Referred Mario Mak MD -[facility] Start: 12-18-2024 End: 12-18-2024 E-mail encounter from caregiver Willie Kaur APRN.CNP Work Phone: Family Medicine Start: 12-18-2024 End: 12-18-2024 Follow-up encounter Willie Kaur APRN.CNP Work Phone: Family Medicine Comment on above: hospital and group home facility follow up Start: 12-17-2024 ambulatory Mario Coburn ty:[facility] Start: 12-17-2024 Registered Referred Mario Mak MD -[facility] Start: 12-12-2024 End: 12-12-2024 Evaluation and management of inpatient DANIEL CASTILLO Facility:[facility] Start: 12-10-2024 End: 12-10-2024 Evaluation and management of inpatient DANIEL CASTILLO Facility:[facility] Start: 11-29-2024 End: 01-08-2025 Telephone encounter Pierce hCi MD Work Phone: [facility] Comment on above: [employer] (FO R IDC USE ONLY) Start: 11-28-2024 End: 11-28-2024 ambulatory Pierce Chi MD Work Phone: [place] Provider Adult Comment on above: [employer] Start Start: 11-26-2024 End: 11-26-2024 Telephone encounter Grupo Mendez MD Work Phone: Hematology/Oncology Comment on above: Appointment Start: 11-23-2024 End: 11-27-2024 Refill Willie Kaur APRN.DETENTION SERGEANT Work Phone: Family Medicine Comment on above: Refill Request Start: 11-21-2024 End: 12-12-2024 Evaluation and management of inpatient SHAUN SUAREZ Facility:[facility] Start: 11-21-2024 End: 11-22-2024 ambulatory Migdalia Cramer MD Work Phone: Family Medicine Comment on above: MRi and tests Start: 11-19-2024 End: 11-19-2024 ambulatory MIGDALIA CRAMER Facility:[facility] Start: 11-19-2024 End: 11-19-2024 ambulatory MIGDALIA CRAMER Facility:[facility] Start: 11-19-2024 End: 11-19-2024 Subsequent hospital visit by physician [facility] ([facility]-Stat/3t) [facility] Comment on above: Chronic pain of righ t ankle [M25.571, G89.29] Start: 11-06-2024 End: 11-06-2024 ambulatory Grupo Mendez MD Work Phone: Hematology/Oncology Comment on above: [employer] up coming a ppt Start: 11-06-2024 End: 12-11-2024 Telephone encounter Willie Kaur APRN.DETENTION SERGEANT Work Phone: Family Medicine Comment on above: Appointment (Rheumat ology) Start: 11-05-2024 End: 11-05-2024 Telephone encounter Grupo Mendez MD Work Phone: Hematology/Oncology Comment on above: Results Start: 11-01-2024 End: 11-01-[address] [facility] Facility:[facility] Start: 11-01-2024 End: 11-01-[address] [facility] Facility:[facility] Start: 11-01-2024 End: 11-01-2024 Patient encounter procedure Simone Kevin MD Work Phone: [facility] Comment on above: Right ankle swelling (Primary Dx); Chronic pain of right ankle Start: 11-01-2024 End: 11-01-2024 Subsequent hospital visit by physician [facility] Comment on above: Right ankle swelling [M25.471] Start: 10-29-2024 End: 10-29-2024 [facility] Facility:[facility] Start: 10-29-2024 End: 10-29-2024 Office outpatient visit 15 minutes Ab Benson MD Work Phone: Family Medicine Comment on above: Chronic pain of righ t ankle (Primary Dx) Start: 10-11-2024 End: 10-12-2024 Refill Willie Kaur APRN.DETENTION SERGEANT Work Phone: Family [facility] Comment on above: Refill Request Start: 09-20-2024 End: 09-20-[address] [facility] Facility:[facility] Start: 09-20-2024 End: 09-20-2024 Patient encounter procedure Simone Kevin MD Work Phone: [facility] Comment on above: Right ankle swelling ; Closed nondisplaced fracture of right calcaneus, unspecified portion of calcaneus, initial encounter Start: 09-19-2024 End: 09-19-2024 ambulatory MIGDALIA CRAMER Facility:[facility] Start: 09-19-2024 End: 09-19-2024 Subsequent hospital visit by physician Xr [facility] Work Phone: Radiology Comment on above: Pain in joint involv ing right ankle and foot [M25.571] Start: 09-18-2024 End: 09-18-2024 Telephone encounter Grupo Mendez MD Work Phone: Hematology/Oncology Comment on above: Results (Suspicion f or calcaneal bone fracture ) Start: 09-18-2024 ambulatory GRUPO MENDEZ Facili ty:[facility] Start: 09-18-2024 End: 09-18-2024 Subsequent hospital visit by physician [facility] Work Phone: Radiology Comment on above: Right ankle swelling [M25.471] Start: 09-17-2024 End: 09-18-2024 ambulatory MIGDALIA CRAMER Facility:[facility] Start: 09-17-2024 End: 09-17-2024 Subsequent hospital visit by physician Max [facility] Work Phone: Radiology Comment on above: [...] Start: 09-13-2024 End: 09-13-2024 ambulatory MIGDALIA CRAMER Facility:[facility] Start: 09-13-2024 End: 09-13-2024 Patient encounter procedure [...] 09-05-2024 ambulatory Migdalia Cramer MD Work Phone: [facility] Comment on above: Lab results and next steps Start: 09-04-2024 End: 09-05-2024 E-mail encounter from caregiver Migdalia Cramer MD Work Phone: [facility] Start: 08-21-2024 End: 08-24-2024 Refill Migdalia Cramer MD Work Phone: [facility] Comment on above: Refill Request Results Start: 08-14-2024 End: 08-14-2024 ambulatory MIGDALIA CRAMER Facility:[facility] Start: 08-14-2024 End: 08-14-2024 ambulatory MIGDALIA CRAMER Facility:[facility] Start: 08-14-2024 End: 08-14-2024 Office outpatient visit 25 minutes Migdalia Cramer MD Work Phone: [facility] Comment on above: Generalized weakness (Primary Dx); Headache, unspecified headache type; Leukocytosis, unspecified type; CKD stage 3 due to type 2 diabetes mellitus (HCC); Normocytic anemia; Essential hypertension; Insomnia; Arthralgia, unspecified joint Start: 08-13-2024 End: 08-13-2024 Emergency department patient visit MIGDALIA CRAMER Facility:[facility] Start: 08-13-2024 End: 08-13-2024 ambulatory Migdalia Cramer MD Work Phone: [facility] Comment on above: Fatigue Start: 08-09-2024 End: 08-10-2024 Refill Willie Kaur APRN.CNP Work Phone: [facility] Comment on above: Refill Request Start: 07-19-2024 End: 07-19-2024 Refill Migdalia Cramer MD Work Phone: [facility] Comment on above: Refill Request Start: 07-12-2024 End: 07-12-2024 ambulatory MIGDALIA CRAMER Facility:[facility] Start: 07-12-2024 End: 07-12-2024 Office outpatient visit 25 minutes Migdalia Cramer MD Work Phone: [facility] Comment on above: Essential [...] Start: 07-11-2024 End: 07-11-2024 ambulatory MIGDALIA CRAMER Facility:[facility] Start: 05-23-2024 Refill Willie Mitsch ENVIRONMENT COORDINATOR.DETENTION SERGEANT Work Phone: [facility] Comment on above: Refill Request Start: 04-25-2024 Refill Willie Mitsch ENVIRONMENT COORDINATOR.DETENTION SERGEANT Work Phone: [facility] Comment on above: Refill Request Start: 04-16-2024 Telephone encounter Migdalia hidalgo MD Work Phone: [facility] Comment on above: Medication Problem Start: 03-21-2024 End: 03-21-2024 Patient encounter procedure Gertrudis Bill DO Work Phone: Ophthalmology Comment on above: Type 2 diabetes karen itus without retinopathy (HCC) (Primary Dx); Pseudophakia Start: 03-13-2024 ambulatory Lien Rutledeg MA [facility] Start: 03-13-2024 Patient encounter procedure Lien Rutledge MA [facility] Comment on above: Population Health [facility] Start: 02-28-2024 Refill Migdalia gordon MD Work Phone: [facility] Start: 02-01-2024 Refill Ok [place] Work Phone: [facility] Comment on above: Refill Request Start: 01-31-2024 Refill Ok [place] Work Phone: [facility] Comment on above: Refill Request Start: 01-23-2024 Refill Migdalia gordon MD Work Phone: [facility] Comment on above: Refill Request Start: 01-11-2024 Refill Migdalia gordon MD Work Phone: [facility] Start: 10-14-2023 Refill Migdalia gordon MD Work Phone: [facility] Comment on above: Refill Request Start: 09-05-2023 Refill Willie Kaur APRN.DETENTION SERGEANT Work Phone: [facility] Comment on above: Refill Request Start: 08-31-2023 Telephone encounter Migdalia hidalgo MD Work Phone: [facility] Comment on above: Medication Problem Start: 06-23-2023 Refill Migdalia gordon MD Work Phone: [facility] Comment on above: Refill Request Start: 06-02-2023 Refill Migdalia gordon MD Work Phone: [facility] Comment on above: Refill Request Start: 05-11-2023 ambulatory Migdalia gordon MD Work Phone: [facility] Comment on above: Blood sugar levels Start: 04-28-2023 ambulatory No Pcp [facility] [employer] Start: 04-19-2023 Telephone encounter Migdalia hidalgo MD Work Phone: [facility] Comment on above: Appointment (Re: [facility] appointment) Patient Question (Re : Blood Glucose Monitor) Start: 04-13-2023 End: 04-13-2023 Patient encounter procedure Willie Kaur APRN.DETENTION SERGEANT Work Phone: [facility] Comment on above: Diabetes mellitus, n on-insulin dependent (NIDDM or type II) ([facility]) (Primary Dx); CKD stage 3 due to type 2 diabetes mellitus (HCC) Start: 03-29-2023 End: 03-29-2023 Patient encounter procedure Willie Kaur APRN.DETENTION SERGEANT Work Phone: Family Medicine Comment on above: Diabetes mellitus, n on-insulin dependent (NIDDM or type II) (HCC) (Primary Dx); Essential hypertension; CKD stage 3 due to type 2 diabetes mellitus (HCC) Start: 03-24-2023 Telephone encounter Migdalia hidalgo MD Work Phone: Family Medicine Comment on above: Patient Update (Formerly [facility] update on how it is working with the change in medication -please call her caregiver Demetria ) Start: 03-22-2023 Telephone encounter Migdalia hidalgo MD Work Phone: Family [facility] Comment on above: Patient Question Start: 03-17-2023 End: 03-17-2023 Patient encounter procedure Willie Kaur APRN.DETENTION SERGEANT Work Phone: Family Medicine Comment on above: Pain in both hands ( Primary Dx); Pain in both wrists; Leukocytosis, unspecified type; Type 2 diabetes mellitus with stage 3 chronic kidney disease, without long-term current use of insulin, unspecified whether stage 3a or 3b CKD (HCC); Muscular deconditioning Start: 03-10-2023 Patient Outreach Lien jensen RN Work Phone: [facility] Comment on above: Transition Of Care ( [facility], initial outreach) Start: 02-22-2023 Refill Willie Kaur APRN.DETENTION SERGEANT Work Phone: Family Medicine [place] Comment on above: Refill Request Start: 01-19-2023 Telephone encounter Migdalia hidalgo MD Work Phone: Family Medicine Comment on above: Refill Request Start: 12-28-2022 Refill Willie Kaur APRN.DETENTION SERGEANT Work Phone: Family Medicine Comment on above: [...] above: Refill Request Start: 08-17-2022 Refill Willie Kaur APRN.CNP Work Phone: Family Medicine Comment on above: Refill Request (SEE RX [...] Start: 04-27-2022 ambulatory Katia Farooq RN IN [facility] Start: 04-27-2022 Follow-up encounter Katia love RN [facility] [employer] Comment on above: Transition Of Care ( TCM follow up) Start: 04-26-2022 Telephone encounter Migdalia hidalgo MD Work Phone: Family Medicine [place] Comment on above: Patient Question Start: 04-08-2022 Telephone encounter Migdalia hidalgo MD Work Phone: Family [facility] Comment on above: Lab Orders Start: 04-03-2022 End: 04-03-2022 Patient encounter procedure Migdalia Cramer MD Work Phone: Family [facility] Comment on above: Acute cystitis witho ut [...] ambulatory Migdalia gordon MD Work Phone: Family [facility] Comment on above: Pain; UTI Start: 03-29-2022 Telephone encounter Willie hatch APRN.DETENTION SERGEANT Work Phone: Family [facility] Comment on above: Appointment (please make sure she schedules hospital follow up) Start: 03-23-2022 Refill Migdalia gordon MD Work Phone: Internal Medicine Comment on above: Refill Request Start: 03-19-2022 Refill Willie Kaur APRN.DETENTION SERGEANT Work Phone: [facility] Comment on above: Refill Request Start: 02-25-2022 Telephone encounter Migdalia hidalgo MD Work Phone: [facility] Comment on above: Medication Request Start: 12-25-2021 Refill Migdalia gordon MD Work Phone: Family [facility] Comment on above: Refill Request Start: 07-14-2021 End: 07-14-2021 Subsequent hospital visit by physician Max [facility] Work Phone: Radiology Comment on above: Pain [R52] Procedures Date Procedure Procedure Detail Performing Clinician Start: 04-10-2025 Urine culture Mario Dell mendoza MD Start: 04-10-2025 Urnls dip stick/tabl et reagent auto microscopy Mario Kareeno MD Start: 01-07-2025 Measurement of renal function Mario Mak MD Comment on above: GFR Calc Start: 01-02-2025 Antibody screen MIGDALIA ALFONSO Comment on above: Order Comment: Speci men Type: BLOOD SPECIMENOrdering Facility: [facility] Address: [address] [place] [address] Performed By: #### T SCR ####CC MAIN BLOOD BANKCLIA [id number] [facility] [id number] [address] [place] Start: 2024 Measurement [...] Author Start: 09-13-2025 Anxiety Screening Anxiety Screening [facility] Start: 09-13-2025 Covid-19 Vaccine () Covid-19 Vaccine () [facility] Comment on above: Postponed from 07/15/2024 (Declined at t his time) Start: 09-13-2025 Depression Screening Depression Screening [facility] Start: 09-13-2025 Diabetic foot examination Diabetic Foot Exam [facility] Start: 09-13-2025 RSV Vaccine (1 - 1-dose 75+ series) RSV Vaccine (1 - 1-dose 75+ series) [facility] Comment on above: Postponed from 2010 (Declined at t his time) Start: 09-13-2025 Shingrix Vaccine (2 of 3) Shingrix Vaccine (2 of 3) [facility] Comment on above: Postponed from 03/19/2015 (Declined at t his time) Start: 09-13-2025 Urine microalbumin profile DTaP,Tdap,Td Vaccine (1 - Tdap) [facility] Comment on above: Postponed from 1954 (Declined at t his time) Start: 08-14-2025 Hepatitis B screening Urine Albumin:Creatinine Ratio [facility] Start: 07-15-2025 Influenza vaccination [facility] Start: 07-11-2025 Hepatitis B surface antibody level LDL Cholesterol [facility] Start: 07-05-2025 End: 07-05-2025 Patient encounter procedure Rheumatology Comment on above: Return in about 6 months (around 07/04/20 25) for Pseudogout 20m. F/u 6 months Start: 05-13-2025 Influenza vaccination Influenza Vaccine (#1) [facility] Comment on above: Postponed from 07/15/2024 (Declined at t his time) Start: 03-21-2025 Glaucoma screening Dilated Retinal Exam [facility] Start: 03-12-2025 End: 03-12-2025 Patient encounter procedure 03/12/2025 9:00 AM EDT Office Visit Family Medicine [id number] [place] [address] [place] [address] [place] [address] 6 month follow up Family Medicine Comment on above: 6 month follow up Start: 02-19-2025 Hemoglobin A1c measurement HbA1C [facility] Start: 02-13-2025 End: 05-15-2025 CBC W Auto Differential panel - Blood COMPLETE BLOOD COUNT AND DIFFERENTIAL Lab Routine Normocytic anemia Expected: 02/13/2025, Expires: 05/15/2025 [facility] Work Phone: Comment on above: Expected: 02/13/2025, Expires: Start: 02-13-2025 End: 05-15-2025 Comprehensive metabolic 2000 panel - Serum or Plasma COMPREHENSIVE METABOLIC PANEL Lab Routine Normocytic anemia Expected: 02/13/2025, Expires: 05/15/2025 [facility] Comment on above: Expected: 02/13/2025, Expires: Start: 02-13-2025 End: 05-15-2025 Pyridoxine [Mass/volume] in Serum or Plasma VITAMIN B6/PYRIDOXIN Lab Routine Normocytic anemia Vitamin B6 deficiency Expected: 02/13/2025, Expires: 05/15/2025 [facility] Comment on above: Expected: 02/13/2025, Expires: Start: 02-13-2025 End: 02-13-2025 Patient encounter procedure 02/13/2025 1:30 PM EDT Office Visit Plastic Surgery [address] [place] [address] Lien Bang, ANIRUDH [address] [facility], [address] [place] [address] appt confirmed with Nj at [facility] Right ankle-rescheduled with Malia at [facility] 01-28-2025 10:22am-KT Plastic Surgery Comment on above: appt confirmed with Nj at [facility] Right ankle-rescheduled with Malia at [facility] 01-28-2025 10:22am-KT Start: 02-11-2025 End: 09-13-2025 Basic metabolic 2000 panel - Serum or Plasma BASIC METABOLIC PANEL Lab Routine Essential hypertension Hypertensive kidney disease with stage 3b chronic kidney disease (HCC) CKD stage 3 due to type 2 diabetes mellitus (HCC) Diabetes mellitus, non-insulin dependent (NIDDM or type II) (HCC) Expected: 02/11/2025, Expires: 09/13/2025 [facility] Work Phone: Comment on above: Expected: 02/11/2025, Expires: Start: 02-11-2025 End: 05-13-2025 CBC panel - Blood by Automated count COMPLETE BLOOD COUNT Lab Routine Iron deficiency anemia, unspecified iron deficiency anemia type Leukocytosis, unspecified type Expected: 02/11/2025, Expires: 05/13/2025 [facility] Comment on above: Expected: 02/11/2025, Expires: Start: 02-11-2025 End: 09-13-2025 Hemoglobin A1c in Blood HEMOGLOBIN A1C Lab Routine Diabetes mellitus, non-insulin dependent (NIDDM or type II) (HCC) Expected: 02/11/2025, Expires: 09/13/2025 [facility] Comment on above: Expected: 02/11/2025, Expires: Start: 02-11-2025 End: 09-13-2025 LIPID PANEL, NONFASTING LIPID PANEL, NONFASTING Lab Routine Hyperlipidemia associated with type 2 diabetes mellitus (HCC) (HCC) Diabetes mellitus, non-insulin dependent (NIDDM or type II) (HCC) Expected: 02/11/2025, Expires: 09/13/2025 [facility] Comment on above: Expected: 02/11/2025, Expires: Start: 01-30-2025 End: 01-30-2025 Patient encounter procedure 01/30/2025 1:30 PM EDT Office Visit Plastic Surgery [address] [place] [address] Lien Bang DPM [address], [address] [place] [address] Right ankle Plastic Surgery Comment on above: Right ankle Start: 01-16-2025 End: 01-16-2025 Patient encounter procedure 01/16/2025 1:00 PM EST Office Visit Plastic Surgery [address] [place] [address] Lien Bang, ANIRUDH [address], [address] [place] [address] Right ankle Plastic Surgery Comment on above: Right ankle Start: 01-08-2025 End: 01-08-2025 Patient encounter procedure Plastic Surgery Comment on above: new to us f/u abx from hospital visit mark carranza from [facility] [phone] f/u abx from hospita l visit patient from [facility] [phone] [facility] f/u abx from hospital visit patient from [facility] [phone] Start: 01-04-2025 End: 01-04-2025 Patient encounter procedure 01/04/2025 8:00 AM EST Office Visit Rheumatology [address] [place] [address] Tyesha Singleton MD [address] [facility] [address] [place] [address] mcghee Rheumatology Comment on above: Inflammatory Arthritis per dr mcghee Start: 01-02-2025 End: 01-02-2025 Follow-up encounter 01/02/2025 8:30 AM EST Visit (SP) Office Hematology/Oncology [address] [place] [address] [place] [address] [place] [address] Follow up Hematology/Oncology Comment on above: Follow up Start: 12-26-2024 End: 12-26-2024 Patient encounter procedure 12/26/2024 1:00 PM EST Office Visit Plastic Surgery [address] [place] [address] Lien Bang DPM [address] [facility], [address] [place] [address] new to us right ankle -f/u from [...] EST - 11/27/2024 3:53 PM EST Surgery [facility] Surgery [address] [place] [address] Keerthi Plata, ANIRUDH [address] [facility], [address] [place], [place] [id number] INCISION AND DRAINAGE ABSCESS EXTREMITY LOWER SIMPLE OR SINGLE [facility] Surgery Comment on above: INCISION AND [...] 9:10 AM EST Visit (SP) Office Hematology/Oncology [address] [place] [address] [place] [address] [place] [address] folow up Iron Hematology/Oncology Comment on above: folow up Iron Start: 11-21-2024 End: 02-20-2025 CBC W Auto Differential panel - Blood COMPLETE BLOOD COUNT AND DIFFERENTIAL Lab Routine Normocytic anemia Leukocytosis, unspecified type Expected: 11/21/2024, Expires: 02/20/2025 [facility] Work Phone: Comment on above: Expected: 11/21/2024, Expires: Start: 11-21-2024 End: 02-20-2025 Ferritin [Mass/volume] in Serum or Plasma FERRITIN Lab Routine Normocytic anemia Expected: 11/21/2024, Expires: 02/20/2025 [facility] Comment on above: Expected: 11/21/2024, Expires: Start: 11-21-2024 End: 02-20-2025 Iron and Iron binding capacity panel - Serum or Plasma IRON AND TIBC Lab Routine Normocytic anemia Expected: 11/21/2024, Expires: 02/20/2025 [facility] Comment on above: Expected: 11/21/2024, Expires: Start: 11-21-2024 End: 02-20-2025 Zinc [Mass/volume] in Serum or Plasma ZINC BLD Lab Routine Normocytic anemia Expected: 11/21/2024, Expires: 02/20/2025 [facility] Comment on above: Expected: 11/21/2024, Expires: Start: 11-21-2024 End: 11-21-2024 ambulatory 11/21/2024 9:15 AM EST Results Only [facility] [address] [place] [address] lab [facility] Comment on above: lab Start: 11-19-2024 End: 11-19-2024 Patient encounter procedure 11/19/2024 9:30 AM EST Appointment MRI [facility] [address] [place] [address] Chronic pain of right ankle [M25.571, G89.29] MRI [facility] Comment on above: Chronic pain of right ankle [M25.571, G8 9.29] Start: 11-14-2024 Advance Directive Discussion Advance Directive Discussion [facility] Start: 11-14-2024 Hemoglobin A1c measurement HbA1C [facility] Start: 11-14-2024 Medicare Advantage Annual Wellness Visit Medicare Advantage Annual Wellness Visit [facility] Start: 11-01-2024 End: 01-31-2025 C reactive protein [Mass/volume] in Serum or Plasma [facility] Comment on above: Expected: 11/01/2024, Expires: Start: 11-01-2024 End: 01-31-2025 Erythrocyte sedimentation rate [facility] Comment on above: Expected: 11/01/2024, Expires: Start: 10-11-2024 Hemoglobin A1c measurement HbA1C [facility] Start: 09-20-2024 End: 09-20-2024 Patient encounter procedure 09/20/2024 9:10 AM EST Office Visit Orthopaedic Surgery [facility] [address] [place] [address] Simone Kevin MD [address] [place] [address] Right ankle swelling [M25.471]; Closed nondisplaced fracture of right calcaneus, unspecified portion of calcaneus, initial encounter [S92.001A] Orthopaedic Surgery [facility] Comment on above: Right ankle swelling [M25.471]; Closed n ondisplaced fracture of right calcaneus, unspecified portion of calcaneus, initial encounter [S92.001A] Start: 09-18-2024 End: 09-18-2024 Patient encounter procedure 09/18/2024 8:15 AM EST Appointment Radiology [address] [place] [address] Right ankle swelling [M25.471] Radiology Comment on above: Right ankle swelling [M25.471] Start: 09-17-2024 End: 09-17-2024 FQHC visit new patient 09/17/2024 3:10 PM EST Visit (SP) Office Hematology/Oncology [address] [place] [address] [place] [address] [place] [address] New patient Hematology/Oncology Comment on above: New patient Start: 09-17-2024 End: 12-17-2024 Pyridoxine [Mass/volume] in Serum or Plasma [facility] Work Phone: Comment on above: Expected: 09/17/2024, Expires: Start: 09-13-2024 End: 09-13-2024 Patient encounter procedure 09/13/2024 10:00 AM EDT Office Visit Family Medicine [id number] [place] [address] [place] [address] [place] [address] AWV Due Family Medicine Comment on above: AWV Due Start: 09-11-2024 End: 12-11-2024 Basic metabolic 2000 panel - Serum or Plasma BASIC METABOLIC PANEL Lab Routine CKD stage 3 due to type 2 diabetes mellitus (HCC) Hypertensive kidney disease with stage 3b chronic kidney disease (HCC) Essential hypertension Diabetes mellitus, non-insulin dependent (NIDDM or type II) (HCC) Expected: 09/11/2024, Expires: 12/11/2024 [facility] Work Phone: Comment on above: Expected: 09/11/2024, Expires: Start: 09-11-2024 End: 12-11-2024 CBC panel - Blood by Automated count COMPLETE BLOOD COUNT Lab Routine Iron deficiency anemia, unspecified iron deficiency anemia type Expected: 09/11/2024, Expires: 12/11/2024 [facility] Comment on above: Expected: 09/11/2024, Expires: Start: 09-11-2024 End: 12-11-2024 Hemoglobin A1c in Blood HEMOGLOBIN A1C Lab Routine Diabetes mellitus, non-insulin dependent (NIDDM or type II) (HCC) Expected: 09/11/2024, Expires: 12/11/2024 [facility] Comment on above: Expected: 09/11/2024, Expires: Start: 09-11-2024 End: 12-11-2024 Microalbumin/Creatinine [Mass Ratio] in Urine ALBUMIN/CREATININE RATIO, URINE Lab Routine CKD stage 3 due to type 2 diabetes mellitus (HCC) Essential hypertension Diabetes mellitus, non-insulin dependent (NIDDM or type II) (HCC) Expected: 09/11/2024, Expires: 12/11/2024 [facility] Comment on above: Expected: 09/11/2024, Expires: [...] deficiency anemia type Expected: 09/11/2024, Expires: 12/11/2024 [facility] Comment on above: Expected: 09/11/2024, Expires: 5 Start: 08-14-2024 End: 11-13-2024 Bacteria identified in Urine by Culture [facility] Comment on above: Expected: 08/14/2024, Expires: Start: 08-14-2024 End: 11-13-2024 C reactive protein [Mass/volume] in Serum or Plasma [facility] Comment on above: Expected: 08/14/2024, Expires: Start: 08-14-2024 End: 11-13-2024 CBC W Ordered Manual Differential panel - Blood [facility] Comment on above: Expected: 08/14/2024, Expires: 4 Start: 08-14-2024 End: 11-13-2024 Erythrocyte sedimentation rate [facility] Work Phone: Comment on above: Expected: 08/14/2024, Expires: 4 Start: 08-14-2024 End: 11-13-2024 [facility] Comment on above: Expected: 08/14/2024, Expires: 4 Start: 08-14-2024 End: 11-13-2024 PROTEIN ELECTROPHORESIS SERUM W/INTERP [facility] Comment on above: Expected: 08/14/2024, Expires: Start: 08-14-2024 End: 11-13-2024 URINALYSIS, DIPSTICK ONLY [facility] Comment on above: Expected: 08/14/2024, Expires: 4 Start: 08-14-2024 End: 08-14-2024 Patient encounter procedure 08/14/2024 10:40 AM EDT Office Visit Family Medicine [address] [place] [address] [place] [address] [place] [address] [place] [address] Elevated white count and dehydration/fatigue Family Medicine Comment on above: Elevated white count and dehydration/fat igue Start: 07-15-2024 Covid-19 Vaccine ( season) Covid-19 Vaccine () [facility] Start: 07-15-2024 Covid-19 Vaccine () Covid-19 Vaccine () [facility] Start: 07-15-2024 Influenza vaccination [facility] Start: 07-12-2024 End: 07-12-2024 Patient encounter procedure 07/12/2024 9:40 AM EDT Office Visit Family Medicine [address] [place] [address] [place] [address] [place] [address] Follow Up Family Medicine Comment on above: Follow Up Start: 04-12-2024 End: 04-12-2024 Patient encounter procedure 04/12/2024 11:30 AM EDT Office Visit Rheumatology [address] [place] [id number] [place] [address] [place] [id number] HFU pseudogout Rheumatology Comment on above: HFU pseudogout Start: 03-21-2024 End: 03-21-2024 Patient encounter procedure 03/21/2024 10:45 AM EDT Office Visit OPHT Ophthalmology [address] [place] [address] Gertrudis Bill DO [address] [place] [address] Dilated Retinal Exam Ophthalmology Comment on above: Dilated Retinal Exam Start: 03-13-2024 End: 09-13-2024 Basic metabolic 2000 panel - Serum or Plasma BASIC METABOLIC PANEL Lab Routine Diabetes mellitus, non-insulin dependent (NIDDM or type II) (HCC) Hyperlipidemia associated with type 2 diabetes mellitus (HCC) (HCC) Essential hypertension Expected: 03/13/2024, Expires: 09/13/2024 [facility] Comment on above: Expected: 03/13/2024, Expires: Start: 03-13-2024 End: 09-13-2024 Hemoglobin A1c in Blood HEMOGLOBIN A1C Lab Routine Diabetes mellitus, non-insulin dependent (NIDDM or type II) (HCC) Expected: 03/13/2024, Expires: 09/13/2024 [facility] Work Phone: Comment on above: Expected: 03/13/2024, Expires: Start: 03-13-2024 End: 09-13-2024 LIPID PANEL, NONFASTING LIPID PANEL, NONFASTING Lab Routine Hyperlipidemia associated with type 2 diabetes mellitus (HCC) (HCC) Expected: 03/13/2024, Expires: 09/13/2024 [facility] Comment on above: Expected: 03/13/2024, Expires: Start: 03-13-2024 End: 09-13-2024 Microalbumin/Creatinine [Mass Ratio] in Urine ALBUMIN/CREATININE RATIO, URINE Lab Routine Diabetes mellitus, non-insulin dependent (NIDDM or type II) (HCC) Expected: 03/13/2024, Expires: 09/13/2024 [facility] Comment on above: Expected: 03/13/2024, Expires: 4 Start: 11-14-2023 Advance Directive Discussion Advance Directive Discussion [facility] Start: 11-14-2023 Behavioral Health Screening Behavioral Health Screening [facility] Start: 11-14-2023 Depression Assessment Depression Assessment [facility] Start: 11-12-2023 Hemoglobin A1c measurement HbA1C [facility] Start: 11-12-2023 Hemoglobin A1c/Hemoglobin.total in Blood HBA1C [facility] Start: 10-23-2023 3 comp foot exam completed DIABETIC FOOT EXAM [facility] Start: 10-23-2023 Diabetic foot examination Diabetic Foot Exam [facility] Start: 10-21-2023 Hepatitis B screening URINE ALBUMIN:CREATININE RATIO [facility] Start: 10-21-2023 Hepatitis B surface antibody level LDL CHOLESTEROL [facility] Start: 09-07-2023 Hemoglobin A1c/Hemoglobin.total in Blood HBA1C [facility] Start: 07-15-2023 Covid-19 Vaccine ( season) Covid-19 Vaccine ( season) [facility] Start: 07-15-2023 Influenza vaccination [facility] Start: 06-17-2023 End: 08-17-2023 Basic metabolic 2000 panel - Serum or Plasma BASIC METABOLIC PNL Lab Routine Type 2 diabetes mellitus with stage 3 chronic kidney disease, without long-term current use of insulin, unspecified whether stage 3a or 3b CKD (HCC) Expected: 06/17/2023 (Approximate), Expires: 08/17/2023 [facility] Work Phone: Comment on above: Expected: 06/17/2023 (Approximate), Expi res: 08/17/2023 Start: 06-17-2023 End: 08-17-2023 Hemoglobin A1c in Blood HGB A1C Lab Routine Type 2 diabetes mellitus with stage 3 chronic kidney disease, without long-term current use of insulin, unspecified whether stage 3a or 3b CKD (HCC) Expected: 06/17/2023 (Approximate), Expires: 08/17/2023 [facility] Work Phone: Comment on above: Expected: 06/17/2023 (Approximate), Expi res: 08/17/2023 Start: 04-29-2023 End: 06-29-2023 Basic metabolic 2000 panel - Serum or Plasma BASIC METABOLIC PNL Lab Routine CKD stage 3 due to type 2 diabetes mellitus (HCC) Diabetes mellitus, non-insulin dependent (NIDDM or type II) (HCC) Expected: 04/29/2023 (Approximate), Expires: 06/29/2023 [facility] Work Phone: Comment on above: Expected: 04/29/2023 (Approximate), Expi res: 06/29/2023 Start: 04-21-2023 Hemoglobin A1c/Hemoglobin.total in Blood HBA1C [facility] Start: 03-23-2023 End: 07-10-2023 Basic metabolic 2000 panel - Serum or Plasma BASIC METABOLIC PNL Lab Routine Diabetes mellitus, non-insulin dependent (NIDDM or type II) (HCC) Expected: 03/23/2023, Expires: 05/23/2023 [facility] Work Phone: Comment on above: Expected: 03/23/2023, Expires: 3 Start: 03-23-2023 End: 05-23-2023 Hemoglobin A1c in Blood HGB A1C Lab Routine Diabetes mellitus, non-insulin dependent (NIDDM or type II) (HCC) Expected: 03/23/2023, Expires: 05/23/2023 [facility] Work Phone: Comment on above: Expected: 03/23/2023, Expires: 3 Start: 03-23-2023 End: 05-23-2023 SCHEDULE LAB TESTING SCHEDULE LAB TESTING Lab Routine Diabetes mellitus, non-insulin dependent (NIDDM or type II) ([facility]) Expected: 03/23/2023, Expires: 05/23/2023 [facility] Work Phone: Comment on above: Expected: 03/23/2023, Expires: 3 Start: 11-14-2022 ADVANCE DIRECTIVE DISCUSSION ADVANCE DIRECTIVE DISCUSSION [facility] Start: 11-14-2022 DEPRESSION ASSESSMENT DEPRESSION ASSESSMENT [facility] Start: 10-27-2022 Hemoglobin A1c/Hemoglobin.total in Blood HBA1C [facility] Start: 10-15-2022 3 comp foot exam completed DIABETIC FOOT EXAM [facility] Start: 10-15-2022 SHINGRIX VACCINE (2 of 3) SHINGRIX VACCINE (2 of 3) [facility] Comment on above: Postponed from 03/19/2015 (Declined at t his time) Start: 10-15-2022 Urine microalbumin profile DTAP,TDAP,TD (1 - Tdap) [facility] Comment on above: Postponed from 1954 (Declined at t his time) Start: 10-12-2022 Hepatitis B screening URINE ALBUMIN:CREATININE RATIO [facility] Start: 10-12-2022 Hepatitis B surface antibody level LDL CHOLESTEROL [facility] Start: 10-08-2022 End: 12-08-2022 ALBUMIN/CREAT RATIO RND UR ALBUMIN/CREAT RATIO RND UR Lab Routine Diabetes mellitus, non-insulin dependent (NIDDM or type II) (HCC) Hypertensive kidney disease with stage 3b chronic kidney disease (HCC) Expected: 10/08/2022, Expires: 12/08/2022 [facility] Work Phone: Comment on above: Expected: 10/08/2022, Expires: 3 Start: 10-08-2022 End: 12-08-2022 Basic metabolic 2000 panel - Serum or Plasma BASIC METABOLIC PNL Lab Routine Diabetes mellitus, non-insulin dependent (NIDDM or type II) (HCC) CKD stage 3 due to type 2 diabetes mellitus (HCC) Essential hypertension Hypertensive kidney disease with stage 3b chronic kidney disease (HCC) Expected: 10/08/2022, Expires: 12/08/2022 [facility] Work Phone: Comment on above: Expected: 10/08/2022, Expires: 3 Start: 10-08-2022 End: 12-08-2022 Hemoglobin A1c in Blood HGB A1C Lab Routine Diabetes mellitus, non-insulin dependent (NIDDM or type II) (HCC) Expected: 10/08/2022, Expires: 12/08/2022 [facility] Work Phone: Comment on above: Expected: 10/08/2022, Expires: 3 Start: 10-08-2022 End: 12-08-2022 LIPID PANEL, NONFASTING LIPID PANEL, NONFASTING Lab Routine Diabetes mellitus, non-insulin dependent (NIDDM or type II) (HCC) Hyperlipidemia associated with type 2 diabetes mellitus (HCC) Expected: 10/08/2022, Expires: 12/08/2022 [facility] Work Phone: Comment on above: Expected: 10/08/2022, Expires: 3 Start: 09-24-2022 Hemoglobin A1c/Hemoglobin.total in Blood HBA1C [facility] Start: 07-26-2022 End: 09-25-2022 CBC panel - Blood by Automated count CBC Lab Routine Iron deficiency anemia, unspecified iron deficiency anemia type CKD stage 3 due to type 2 diabetes mellitus (HCC) Expected: 07/26/2022, Expires: 09/25/2022 [facility] Work Phone: Comment on above: Expected: 07/26/2022, Expires: 2 Start: 07-26-2022 End: 09-25-2022 Ferritin [Mass/volume] in Serum or Plasma FERRITIN BLD Lab Routine Iron deficiency anemia, unspecified iron deficiency anemia type Expected: 07/26/2022, Expires: 09/25/2022 [facility] Work Phone: Comment on above: Expected: 07/26/2022, Expires: 2 Start: 07-26-2022 End: 09-25-2022 Iron and Iron binding capacity panel - Serum or Plasma IRON + TIBC Lab Routine Iron deficiency anemia, unspecified iron deficiency anemia type Expected: 07/26/2022, Expires: 09/25/2022 [facility] Work Phone: Comment on above: Expected: 07/26/2022, Expires: 2 Start: 07-15-2022 Influenza vaccination [facility] Start: 04-26-2022 End: 06-26-2022 CBC panel - Blood by Automated count CBC Lab Routine Iron deficiency anemia, unspecified iron deficiency anemia type Expected: 04/26/2022, Expires: 06/26/2022 [facility] Work Phone: Comment on above: Expected: 04/26/2022, Expires: 2 Start: 04-26-2022 End: 06-26-2022 RETIC COUNT RETIC COUNT Lab Routine Iron deficiency anemia, unspecified iron deficiency anemia type Expected: 04/26/2022, Expires: 06/26/2022 [facility] Work Phone: Comment on above: Expected: 04/26/2022, Expires: 2 Start: 04-12-2022 End: 06-12-2022 Bacteria identified in Urine by Culture URINE CULTURE Microbiology Routine Acute cystitis without hematuria Expected: 04/12/2022, Expires: 06/12/2022 [facility] Work Phone: Comment on above: Expected: 04/12/2022, Expires: 2 Start: 04-12-2022 End: 06-12-2022 URINALYSIS, DIPSTICK ONLY URINALYSIS, DIPSTICK ONLY Lab Routine Acute cystitis without hematuria Expected: 04/12/2022, Expires: 06/12/2022 [facility] Work Phone: Comment on above: Expected: 04/12/2022, Expires: 2 Start: 04-11-2022 Hemoglobin A1c/Hemoglobin.total in Blood HBA1C [facility] Start: 11-14-2021 ADVANCE DIRECTIVE DISCUSSION ADVANCE DIRECTIVE DISCUSSION [facility] Start: 11-14-2021 DEPRESSION ASSESSMENT DEPRESSION ASSESSMENT [facility] Start: 12-07-2018 Glaucoma screening Dilated Retinal Exam [facility] Start: 12-07-2018 Hepatitis C antibody, confirmatory test DILATED RETINAL EXAM [facility] Start: 10-22-2016 PNEUMOCOCCAL: 65+ (2 - PPSV23 or PCV20) PNEUMOCOCCAL: 65+ (2 - PPSV23 or PCV20) [facility] Start: 03-19-2015 SHINGRIX VACCINE (2 of 3) SHINGRIX VACCINE (2 of 3) [facility] Start: 06-14-2013 Colonoscopy COLONOSCOPY [facility] Start: 06-14-2013 Screening for malignant neoplasm of colon Colonoscopy [facility] Start: 06-15-2012 COLORECTAL CANCER SCREENING COLORECTAL CANCER SCREENING [facility] Start: 06-15-2012 Screening for malignant neoplasm of colon Colorectal Cancer Screening [facility] Start: 2010 RSV Vaccine (1 - 1-dose 75+ series) RSV Vaccine (1 - 1-dose 75+ series) [facility] Start: 1995 Hepatitis B Vaccine (1 of 3 - Risk 3-dose series) Hepatitis B Vaccine (1 of 3 - Risk 3-dose series) [facility] Start: 1995 RSV Vaccine (1 - 1-dose 60+ series) RSV Vaccine (1 - 1-dose 60+ series) [facility] Start: 1980 COLOGUARD (FIT-DNA) COLOGUARD (FIT-DNA) [facility] Start: [address] COLONOGRAPHY [facility] Start: 1980 FECAL OCCULT BLOOD FECAL OCCULT BLOOD [facility] Start: 1980 Screening for malignant neoplasm of colon [facility] Start: 1980 SIGMOIDOSCOPY SIGMOIDOSCOPY [facility] Start: 1954 Urine microalbumin profile [facility] Start: 1953 Anxiety Screening Anxiety Screening [facility] Start: 1953 Depression Screening Depression Screening [facility] Start: 1940 COVID-19 VACCINE (#1) COVID-19 VACCINE (#1) [facility] Start: 1940 COVID-19 VACCINE (1) COVID-19 VACCINE (1) [facility] Start: 06-30-1936 COVID-19 VACCINE (#1) COVID-19 VACCINE (#1) [facility] COLOGUARD COLOGUARD Lab Ro utine Screening for colon cancer Ordered: 04/08/2022 [facility] Work Phone: Comment on above: Ordered: 04/08/2022 End: 12-01-2025 MR Ankle - right WO contrast MRI ANKLE WO IVCON RIGHT Radiology Routine Chronic pain of right ankle 1 Occurrences starting 11/01/2024 until 12/01/2025 [facility] Comment on above: 1 Occurrences starting 11/01/2024 until 12/01/2025 End: 09-17-2024 XR Ankle - right AP and Lateral and oblique [facility] Work Phone: Comment on above: 1 Occurrences starting 09/17/2024 until 09/17/2024 End: 12-01-2025 XR Ankle - right AP and Lateral and oblique XR ANKLE GENERAL 3V AP/LAT/OBL RIGHT Radiology Routine Right ankle swelling 1 Occurrences starting 11/01/2024 until 12/01/2025 [facility] Work Phone: Comment on above: 1 Occurrences starting 11/01/2024 until 12/01/2025 XR Ankle - right AP and Lateral and oblique XR ANKLE GENERAL 3V AP/LAT/OBL RIGHT Radiology Routine Right ankle swelling 11/01/2024 2:21 PM EST [facility] XR Calcaneus - right 2 Views XR CALCANEUS 2V AXIAL/LAT RIGHT Radiology Routine Pain in joint involving right ankle and foot 09/19/2024 2:13 PM EST [facility] XR Foot - right AP a nd Lateral and oblique XR FOOT GENERAL 3V AP/LAT/OBL RIGHT Radiology Routine Pain in joint involving right ankle and foot 09/19/2024 2:13 PM EST [facility] Work Phone: End: 12-01-2025 XR Foot - right AP and Lateral and oblique XR FOOT GENERAL 3V AP/LAT/OBL RIGHT Radiology Routine Right ankle swelling 1 Occurrences starting 11/01/2024 until 12/01/2025 [facility] Comment on above: 1 Occurrences starting 11/01/2024 until 12/01/2025 XR Foot - right AP a nd Lateral and oblique XR FOOT GENERAL 3V AP/LAT/OBL RIGHT Radiology Routine Right ankle swelling 11/01/2024 2:21 PM EST [facility] Immunizations Immunization Date Immunization Notes Care Provider Shaun peterson 12-07-2017 influenza virus vacc ine, unspecified formulation Migdalia Cramer MD Work Phone: [facility] 12-01-2016 influenza, high dose seasonal, preservative-free Migdalia Cramer MD Work Phone: [facility] 10-22-2015 pneumococcal conjuga te vaccine, 13 valent Migdalia Cramer MD Work Phone: [facility] Work Phone: 08-15-2015 influenza, high dose seasonal, preservative-free Migdalia Cramer MD Work Phone: [facility] 01-22-2015 zoster vaccine, live Migdalia alfonso MD Work Phone: [facility] 09-18-2014 influenza, seasonal, injectable Migdalia Cramer MD Work Phone: [facility] Work Phone: 09-04-2013 influenza virus vacc ine, unspecified formulation Migdalia Cramer MD Work Phone: [facility] 08-23-2012 influenza virus vacc ine, unspecified formulation Migdalia Cramer MD Work Phone: [facility] Work Phone: 11-22-2011 pneumococcal polysaccharide vaccine, 23 valent Migdalia Cramer MD Work Phone: [facility] 09-15-2011 influenza virus vacc ine, unspecified formulation Migdalia Cramer MD Work Phone: [facility] 09-03-2010 influenza virus vacc ine, unspecified formulation Migdalia Cramer MD Work Phone: [facility] Payers Date Payer Category Payer Self-pay 2020 Medicare UHC MEDICARE UHC MEDICARE ADVANTAGE PPO [id number] 2020-Present [phone] [address] [address] [place] [address] PPO [id number] 2020 Medicare UHC MEDICARE UHC MEDICARE ADVANTAGE PPO [id number] 2020-Present [phone] [address] [address] [place] [address] PPO [id number] 2020 Medicare (Managed Care) [facility] CARE ADVANTAGE PPO [id number] 2020 Medicare [id number] Unknown [id number] Unknown [id number] Unknown [id number] Unknown [id number] Unknown [id number] Unknown [id number] Unknown [id number] Unknown [id number] Unknown [id number] Unknown [id number] Unknown [id number] Social History Date Type Detail Facility Start: 09-16-2011 End: 10-23-2022 Tobacco smoking status NHIS Never smoked tobacco [facility] Start: 10-15-2021 End: 02-13-2025 Alcohol intake Current non-drinker of alcohol (finding) [facility] Start: 09-10-2020 End: 03-08-2023 History SDOH Alcohol Frequency 1 [facility] Start: 09-10-2020 End: 09-16-2020 History SDOH Social Connections Phone 5 [facility] Start: 09-10-2020 End: 09-16-2020 History SDOH Social Connections Get Together 2 [facility] Start: 09-10-2020 History SDOH Social Connections Sabianism 3 [facility] Start: 09-10-2020 History SDOH Social Connections Living 4 [facility] Start: 1935 Sex Assigned At Not on file [facility] Start: 11-09-2021 End: 12-09-2021 Exposure to SARS-CoV-2 (event) Unable to assess [facility] Start: 06-14-2021 End: 05-08-2022 Exposure to SARS-CoV-2 (event) Not sure [facility] Start: 09-16-2011 End: 10-23-2022 Tobacco use and exposure Smokeless tobacco non-user [facility] Start: 09-09-2020 End: 03-17-2023 [facility] Start: 09-09-2020 End: 03-17-2023 Social connection and isolation panel [facility] Do you belong to any clubs or organizations such as rastafarian groups, unions, fraternal or athletic groups, or school groups? Yes [facility] Are you now , , , , never or living with a partner? [facility] How often to you hav e a drink containing alcohol? Never [facility] Average Number of Drinks Not on file [facility] Work Phone: Do you feel stress - tense, restless, nervous, or anxious, or unable to sleep at night because your mind is troubled all the time - these days [OSQ] Only a little [facility] (I/We) worried gosia er (my/our) food would run out before (I/we) got money to buy more. Never true [facility] Work Phone: In the past 12 month s, was there a time when you were not able to pay the mortgage or rent on time? No [facility] Tobacco smoking stat [facility] Unknown if ever smoked [facility] Work Phone: Start: 02-14-2025 End: 02-21-2025 Sex Female (finding) [facility] Start: 1935 Sex Assigned At Female [facility] Medical Equipment Procedure Code Equipment Code Equipment Origin al Text Equipment Identifier Dates [id number], [id number], [id number] Start: 2019 End: 08-21-2024 Comment on above: USE DIRECTED TO T EST BLOOD SUGARS 3 TIMES A DAY Test blood sugar onc e daily Functional Status Date Assessment Result Facility 12-12-2024 Are you deaf, or do you have serious difficulty hearing No 12/12/2024 1:12 PM Petrona Arreguin RN No [facility] 12-12-2024 Are you blind, or do you have serious difficulty seeing, even when wearing glasses No 12/12/2024 1:12 PM Petrona Arreguin RN No [facility] 12-12-2024 Do you have serious difficulty walking or climbing stairs No 12/12/2024 1:12 PM Petrona Arreguin, LIT No [facility] 12-12-2024 Do you have difficul ty dressing or bathing No 12/12/2024 1:12 PM Petrona Arreguin, LIT No [facility] 12-12-2024 Because of a physica l, mental, or emotional condition, do you have difficulty doing errands alone such as visiting a physician's office or shopping No 12/12/2024 1:12 PM Petrona Arreguin RN No [facility] 03-09-2023 Are you deaf, or do you have serious difficulty hearing Yes 03/09/2023 4:15 PM EDShannon Root RN Yes [facility] 03-09-2023 Are you blind, or do you have serious difficulty seeing, even when wearing glasses No 03/09/2023 4:15 PM Shannon Kraus RN No [facility] 03-09-2023 Do you have serious difficulty walking or climbing stairs Yes 03/09/2023 4:15 PM Shannon Kraus RN Yes [facility] 03-09-2023 Do you have difficul ty dressing or bathing Yes 03/09/2023 4:15 PM Shannon Kraus RN Yes [facility] 03-09-2023 Because of a physica l, mental, or emotional condition, do you have difficulty doing errands alone such as visiting a physician's office or shopping Yes 03/09/2023 4:15 PM Shannon Kraus RN Yes [facility] Mental Status Date Assessment Result Facility 12-12-2024 Because of a physica l, mental, or emotional condition, do you have serious difficulty concentrating, remembering, or making decisions No 12/12/2024 1:12 PM Petrona Arreguin RN No [facility] 03-09-2023 Because of a physica l, mental, or emotional condition, do you have serious difficulty concentrating, remembering, or making decisions Yes 03/09/2023 4:15 PM EDT Shannon Stringer RN Yes [facility] Clinical Notes 05-25-2017 to 05-28-2025 Telephone Encounter - Lidia Carbajal LPN - 05/28/2025 2:07 PM EDTTelephone Encounter - Lidia Carbajal LPN - 05/28/2025 2:07 PM EDTSLien burgess DPM - 02/14/2025 9:04 AM EDTPatient Instructions Note Date & Type Note Facility 05-28-2025 Telephone encounter Note Received results of labs done on 05/27/2025 from [facility] (abnormal results in bold): CRP <3.00 0.0-3.0 sed rate 14 0-30 Report sent for scanning. [facility] 05-28-2025 Miscellaneous Notes Received results of labs done on 05/27/2025 from [facility] (abnormal results in bold): CRP <3.00 0.0-3.0 sed rate 14 0-30 Report sent for scanning. documented in this encounter [facility] 05-01-2025 Telephone encounter Note Received results of labs done on [facility] from 04/29/25 (abnormal results in bold): CRP 21.0 sed rate 32 Report sent for scanning. [facility] 05-01-2025 Miscellaneous Notes Received results of labs done on [facility] from 04/29/25 (abnormal results in bold): CRP 21.0 sed rate 32 Report sent for scanning. documented in this encounter [facility] 02-14-2025 Note [facility] 02-14-2025 History of Present illness Narrative Date of Visit: 02/13/2025 CHIEF COMPLAINT: Right ankle wound and RT heel pressure check SP OR right ankle incision and drainage and ulcer debridement 11/27/24 DM II, HgbA1c 10.4 (11/21/24) ADM 11/21/24-12/12/24 HISTORY OF PRESENT ILLNESS: Patient presents to the wound center for follow up since admission to [facility] 11/21/24 where she underwent RT ankle I&D [...] wounds or fluctuance. Neurologic Exam: Comments/Other Findings: light touch sensation largely intact. Orthopedic Exam: Additional Orthopedic Findings: 5/5 muscle strength for all pedal muscle [...] pad every other day. She is at [facility] can WB AT continue offloading right heel, [...] by family members Home Care Company/Nursing Facility:[facility] Consent captured for debridement per Lien Bang DPM and good until July 2025 Anticoagulant Therapy: N/A Living Situation (ie... 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 Bang in 2 weeks - Continue [...] [facility] documented in this encounter [facility] 02-13-2025 Instructions Margie Steiner RN - 02/13/2025 1:29 PM EDT WOUND CARE INSTRUCTIONS- Yusuf Medina Wound location: Right Ankle [facility]: - Wound Care Instructions: - Gather [...] for 1 additional month then stop Apply tubi-physical therapist D to bilateral lower legs Apply a Single layer tubi-physical therapist compression stocking to the right foot base [...] following changes to the Wound Center at [phone] or go to the Emergency Department: Fever or chills Increased drainage Green or yellow drainage Foul odor Increased pain Hardness around the wound Redness, warmth or swelling of the surrounding tissue Color change to the wound When contacting the wound center at the ([phone]): Leave a message that includes your full [...] emergency department. PLAN/ORDERS: - Return to the [facility] for a follow-up with home health occupational therapist Dr. Bang in 2 weeks - Continue [...] Lien Bang DPM/osvaldo/patrick documented in this encounter [facility] 02-13-2025 Note [facility] 02-11-2025 Telephone encounter Note Received results of labs done on 02/04/2025 from [facility] (abnormal results in bold): sed rate 23 0-30 Report sent for scanning. [facility] 02-11-2025 Miscellaneous Notes Received results of labs done on 02/04/2025 from [facility] (abnormal results in bold): sed rate 23 0-30 Report sent for scanning. documented in this encounter [facility] 01-18-2025 Telephone encounter Note Noted Willie Kaur APRN.CNP [facility] 01-18-2025 Miscellaneous Notes Noted Willie Kaur APRN.CNP Contacted [facility] spoke with Gabbie (nurse), I asked to clarify patient's medication or send updated med list. She states" We don't need anything from you She's living here permanently & uses primary care in-house doc." No further information was given or obtained. Chart indicates that she is at [facility], phone number on a fax recently received indicates the SNF is [phone]. Please call the facility that she is at to verify which cholesterol medicine she is taking since caregiver Demetria is not currently in chare of medication administration and can't clarify pravachol vs lipitor. Thank you. Willie Kaur APRN.CNP/ Relative Demetria states the patient is in a fci now, so she needs someone to reach out to her because she states they are giving her different medications at the fci. Please reach out to her at [phone] Attempted to contact relative Demetria with no [...] Jame Hernandez MA documented in this encounter [facility] 01-18-2025 Telephone encounter Note Contacted [facility] spoke with Gabbie (nurse), I asked to clarify patient's medication or send updated med list. She states" We don't need anything from you She's living here permanently & uses primary care in-house doc." No further information was given or obtained. [facility] 01-18-2025 Telephone encounter Note Chart indicates that she is at [facility], phone number on a fax recently received indicates the SNF is [phone]. Please call the facility that she is at to verify which cholesterol medicine she is taking since caregiver Demetria is not currently in chare of medication administration and can't clarify pravachol vs lipitor. Thank you. Willie Kaur APRN.DETENTION SERGEANT/ [facility] 01-17-2025 Telephone encounter Note Relative Demetria states the patient is in a fci now, so she needs someone to reach out to her because she states they are giving her different medications at the fci. Please reach out to her at [phone] [facility] 01-17-2025 Telephone encounter Note Attempted to contact relative Demetria with no success. Left VM requesting call back. If relative returns call, please clarify prescription. [facility] 01-17-2025 Note [facility] 01-17-2025 History of Present illness Narrative Date of Visit: 01/16/2025 CHIEF COMPLAINT: Right ankle wound and RT heel pressure check SP OR right ankle incision and drainage and ulcer debridement 11/27/24 DM II, HgbA1c 10.4 (11/21/24) ADM 11/21/24-12/12/24 HISTORY OF PRESENT ILLNESS: Patient presents to the wound center for follow up since admission to [facility] 11/21/24 where she underwent RT ankle I&D [...] negative pressure. To continue wound vac at [place]. Removed vac dressing and debrided wound today. [...] tubigrip every other day. She is at SNF can WB AT continue offloading right heel, [...] by family members Home Care Company/Nursing Facility:[facility] Consent captured for debridement per Lien Bang DPM and good until July 2025 Anticoagulant Therapy: N/A Living Situation (ie... 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 DME: Facility SPECIAL NEEDS: Coordination of care N/A Emotional support N/A OR set-up N/A Refrigeration Tech N/A Incontinence needs N/A DISCHARGED in stable condition to: Arrived via wheelchair accompanied by family & aide PLAN/ORDERS: - Return to the [facility] for a follow-up with home health occupational therapist Dr. Bang in 2 weeks - Follow-up [...] Nanette Welch RN/akiko documented in this encounter [facility] 01-17-2025 Telephone encounter Note Images from the original note were not included. Pended med is Pravastatin (Pravachol). Epic med list indicates atorvastatin (Lipitor). Please clarify which patient is taking. Willie Kaur APRN.DETENTION SERGEANT [facility] 01-16-2025 Telephone encounter Note Patient has [...] Please review and advise. Jame Hernandez MA [facility] 01-16-2025 Instructions Nanette Welch RN - 01/16/2025 1:12 PM EST WOUND CARE INSTRUCTIONS- Yusuf Medina Wound location: Right Ankle [facility] HOME: - Please re-apply wound [...] the wound base. - Cover with 4x4 Aberdeen SAP bordered foam or equivalent dressing. - Change your dressing every other day or as needed to maintain a clean, dry and intact dressing. Apply a Single layer tubi-physical therapist compression stocking to the right foot base [...] following changes to the Wound Center at [phone] or go to the Emergency Department: Fever or chills Increased drainage Green or yellow drainage Foul odor Increased pain Hardness around the wound Redness, warmth or swelling of the surrounding tissue Color change to the wound When contacting the wound center at the ([phone]): Leave a message that includes your full [...] emergency department. PLAN/ORDERS: - Return to the [facility] for a follow-up with home health occupational therapist Dr. Bang in 2 weeks - Follow-up [...] contact the wound center. Lien Bang DPM /otf/fm documented in this encounter [facility] 01-16-2025 Note [facility] 01-08-2025 Telephone encounter Note Per Alon-- Labs rev [place] stop date today PICC removal in the [...] the picc line after the last dose. [facility] 01-08-2025 Miscellaneous Notes Per Alon-- Labs rev [place] stop date today PICC removal in the [...] differential wasn't done on the cbc The COPPER PLATE PRINTER has added it on moving forward The results were attached to the M drive Spoke to the COPPER PLATE PRINTERnaveen requested Lilo from [facility] called [phone] to schedule the follow up, I gave her the [facility] number and 01/08 for the schedule date. Delfina Elias Yusuf is still inpt at [facility] She will be d/c to [facility] [phone] Summary: COPAT ACTION-FOR IDC USE ONLY Images from the original note were not included. 11/28/2024 8:48 PM Pierce Chi GA PROVIDER ADULT [id number] Patient Info Patient Name Sex Yusuf Medina ([id number]) Female 1935 Encounter Notes Progress Notes by Pierce Chi MD, encounter date 11/28/2024: Progress Notes [facility] Outpatient Parenteral Antimicrobial Therapy (OPAT) Start Form Patient Info Patient MRN Patient Name Address Date of [id number] Yusuf Medina [address] [facility] [id number] 1935 Start Date 11/28/2024 Physician Group [facility] [...] Treatment Course Pierce Chi MD Address [address] [place] [address] Prescribing Provider's signature - electronically signed by Pierce Chi MD on 11/28/24 at 8:50 PM documented in this encounter [facility] 01-08-2025 Note [facility] 01-08-2025 History of Present illness Narrative [...] or type II) CATIE PLAN: Labs rev [place] stop date today PICC removal in the [...] by family members Home Care Company/Nursing Facility:[facility] Consent captured for debridement per Lien Bang DPM and alex until December 2024 Anticoagulant Therapy: N/A Living Situation (ie... Apartment, house, BETHANIE): Facility Who lives with patient: Self Who will be performing wound care: SNF staff Available Support System: [employer] cristian Armstrong & Nathaniel Medina; 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 Bang on January 16 at 1:00 [...] - Please follow-up with your PCP or branch sales and service representative about your elevated blood pressure readings. - [...] Cinthia Dao RN/TC documented in this encounter [facility] 01-08-2025 Instructions Cinthia Dao RN - 01/08/2025 12:51 PM EST WOUND CARE INSTRUCTIONS- Yusuf Medina Wound location: Right Ankle [facility] HOME: - Please re-apply wound VAC today [...] following changes to the Wound Center at [phone] or go to the Emergency Department: Fever or chills Increased drainage Green or yellow drainage Foul odor Increased pain Hardness around the wound Redness, warmth or swelling of the surrounding tissue Color change to the wound When contacting the wound center at the ([phone]): Leave a message that includes your full [...] emergency department. PLAN/ORDERS: - Return to the [facility] for a follow-up with home health occupational therapist Dr. Bang on January 16 at 1:00 [...] - Please follow-up with your PCP or branch sales and service representative about your elevated blood pressure readings. - If you have any questions or concerns that cannot be answered with the following information, please follow the instructions listed above on how to contact the wound center. Pierce Chi MD/ALANA/JOHN documented in this encounter [facility] 01-08-2025 Note [facility] 01-08-2025 Telephone encounter Note Yusuf has an appt today with Alon at [facility]. She's currently on Cefazolin 2g iv q8 with a stop date for today. [facility] 01-07-2025 Telephone encounter Note Jan 07 labs reviewed, no changes The creat was never done The results were attached to the M drive [facility] 01-04-2025 Telephone encounter Note Received record release from [facility]. Faxed to number provided on form, confirmation fax received. [facility] 01-04-2025 Miscellaneous Notes Received record release from [facility]. Faxed to number provided on form, confirmation fax received. The initial note indicates that a "administrative representative" is calling and gave return phone number [phone]. I called this number and phone rang and rang numerous times. No voice mail. I can print of POA, stamp and fax since this is a facility to facility request. Given to nursing. If the "administrative representative" needs anything else and calls back, Please ask for name and direct line so that return call can be made. Thank you. Willie Kaur APRN.DRAKE Spoke with a laboratory secretary at [facility], he took the info again to get us a signed records release faxed to the office. Please watch for fax Please advise [facility] that if patient signs record release, they can get any records they need from [facility] medical records. Or family can sign record request at fci and fci can fax Family Medicine the records request and I can send what I can. Our fax is [phone]. Willie Kaur APRN.DRAKE Records release was not signed. Please review and advice. Received call from [facility]. The administrative representative has appointment with patient's sons this afternoon at 2 pm and is requesting Advanced Directive/POA paperwork that was scanned in on 12/31. Advised to send records request, but she is concerned about not having this paperwork by 2 pm meeting. District Manager Postal Service can be reached at [phone]. Fax number given for records request as well. documented in this encounter [facility] 01-04-2025 Telephone encounter Note The initial note indicates that a "administrative representative" is calling and gave return phone number [phone]. I called this number and phone rang and rang numerous times. No voice mail. I can print of POA, stamp and fax since this is a facility to facility request. Given to nursing. If the "administrative representative" needs anything else and calls back, Please ask for name and direct line so that return call can be made. Thank you. Willie Kaur APRN.DRAKE [facility] 01-04-2025 Telephone encounter Note Spoke with a laboratory secretary at [facility], he took the info again to get us a signed records release faxed to the office. Please watch for fax [facility] 01-04-2025 Telephone encounter Note Please advise [facility] that if patient signs record release, they can get any records they need from [facility] medical records. Or family can sign record request at fci and fci can fax Family Medicine the records request and I can send what I can. Our fax is [phone]. Willie Kaur APRN.DRAKE [facility] 01-04-2025 Note HNO ID: [id number] Author: TYESHA SINGLETON MD Service: ? Author [...] with dramatic improvement Currently she is in [place] and here with AVELINA and nurse aid who gives the history Currently she is pain free Also spoke with her nurse [place] who states patient does nto complain of pain, pretty sedentary. No specific complaints at [place] per nurse Currently doing well, no pain at present Family states after debridement of rt ankle- patient feels weak and does not want to walk around Was living alone until 2 months ago and now at [place]. Prior to debridement , patient was not [...] L REMV CATARACT EXTRACAP,INSERT LENS Bilateral 2020 [facility] predniSONE (DELTASONE) 5 mg tablet Take [...] Sister None B (more content not included)... [facility] 01-04-2025 History of Present illness Narrative [...] with dramatic improvement Currently she is in [place] and here with AVELINA and nurse aid who gives the history Currently she is pain free Also spoke with her nurse [place] who states patient does nto complain of pain, pretty sedentary. No specific complaints at [place] per nurse Currently doing well, no pain at present Family states after debridement of rt ankle- patient feels weak and does not want to walk around Was living alone until 2 months ago and now at [place]. Prior to debridement , patient was not [...] L REMV CATARACT EXTRACAP,INSERT LENS Bilateral 2020 [facility] predniSONE (DELTASONE) 5 mg tablet Take [...] every day prn -written instructions given to [place] as well as verbal instructions to family and nurse who is taking care of her at [place] 2. Rt ankle cellulitis and osteomyelitis -currently [...] Swollen Glands: No documented in this encounter [facility] 01-03-2025 Telephone encounter Note Records release was not signed. Please review and advice. [facility] 01-03-2025 Telephone encounter Note Received call from [facility]. The administrative representative has appointment with patient's sons this afternoon at 2 pm and is requesting Advanced Directive/POA paperwork that was scanned in on 12/31. Advised to send records request, but she is concerned about not having this paperwork by 2 pm meeting. District Manager Postal Service can be reached at [phone]. Fax number given for records request as well. [facility] 01-02-2025 Telephone encounter Note SOCIAL WORK Date of Service: Thursday January 02, 2025 [facility] Stemhole Borer (SW) Aditi Lopez attempted to contact Yusuf Medina by phone using professional builder services to complete the distress assessment. Yusuf has been diagnosed with Normocytic anemia. She flagged for moderate depression on 12-31-24. 08/14/2018 11/21/2024 2024 PHQ-9 Score 9 13 12 SW spoke with Yusuf's family member Mercedes. She advised that Yusuf is in a group home facility. Mercedes advised that she completed the questionnaire without the patient. She also noted that Yusuf will most likely not understand the Brazilian professional builder because she speaks a different dialect. At this time, social work service is declined/deferred based on: she pt is at a SNF and family member completed the questionnaire. Please re-consult social work if any other psychosocial needs arise. Unable To Reach Patient PLAN: Follow up on an as needed basis ALEJANDRO Encarnacion [facility] Work Phone: 01-02-2025 Miscellaneous Notes SOCIAL WORK Date of Service: Thursday January 02, 2025 [facility] Stemhole Borer (SW) Aditi Lopez attempted to contact Yusuf Medina by phone using professional builder services to complete the distress assessment. Yusuf has been diagnosed with Normocytic anemia. She flagged for moderate depression on 12-31-24. 08/14/2018 11/21/2024 2024 PHQ-9 Score 9 13 12 SW spoke with Yusuf's family member Mercedes. She advised that Yusuf is in a group home facility. Mercedes advised that she completed the questionnaire without the patient. She also noted that Yusuf will most likely not understand the Brazilian professional builder because she speaks a different dialect. At this time, social work service is declined/deferred based on: she pt is at a SNF and family member completed the questionnaire. Please re-consult social work if any other psychosocial needs arise. Unable To Reach Patient PLAN: Follow up on an as needed basis ALEJANDRO Encarnacion documented in this encounter [facility] 01-02-2025 Instructions Grupo Mendez MD - 01/02/2025 9:19 AM EST Hemoglobin was low at 7.8 Obtaining repeat lab to determine if blood transfusion needed and if needs nutrient support for anemia Recommend repeating blood counts once weekly for next 6 weeks starting next week Please schedule follow-up with Dr. Mendez in 7 weeks For scheduling questions, please call [phone] (tests and appointments). Ask for the oncology soil specialist. For symptom management or care coordination questions, please call Renetta at [phone] or use my chart to reach us. After hours with medical questions, please call the doctor on-call at [phone]. Thank you, Grupo Mendez MD documented in this encounter [facility] 01-02-2025 Note HNO ID: [id number] Author: GRUPO MENDEZ MD Service: ? Author [...] L REMV CATARACT EXTRACAP,INSERT LENS Bilateral 2020 [facility] FAMILY HISTORY Problem Relation Age of [...] (3 mL) I (more content not included)... [facility] 01-02-2025 History of Present illness Narrative [...] L REMV CATARACT EXTRACAP,INSERT LENS Bilateral 2020 [facility] FAMILY HISTORY Problem Relation Age of [...] Range Status 01/02/2025 5.9 % Final Abs Letcher Date Value Ref Range Status 01/02/2025 0.61 [...] today's encounter, 01/02/2025) documented in this encounter [facility] 2024 Telephone encounter Note Dec 31 labs reviewed, no changes The results were attached to the M drive [facility] 12-27-2024 Note [facility] 12-27-2024 History of Present illness Narrative Date of Visit: 12/26/2024 CHIEF COMPLAINT: Right ankle wound and NEW RT heel pressure ulcer OR right ankle incision and drainage and ulcer debridement 11/27/24 DM II, HgbA1c 10.4 (11/21/24) ADM 11/21/24-12/12/24 HISTORY OF PRESENT ILLNESS: Patient presents to the wound center for first follow up since admission to [facility] 11/21/24 where she underwent RT ankle I&D [...] became inflamed and infected. Patient arrived via:[facility] [employer] [facility] Company/Nursing Facility:[facility] rehab until 01/08 for IV abx Consent captured for debridement per Lien Bang DPM and good until December 2024. Special Instructions (for example, patient stands at the bedside for exam/dressing): Anticoagulant Therapy:n/a Living Situation (ie... 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 Provider seeing patient:Lien Bang ANIRUDH __ WOUND [...] COMPRESSION: N/A DME: Prism order date DME: [facility] , PH: [phone] SPECIAL NEEDS: Coordination of care N/A Emotional support N/A OR set-up N/A Refrigeration Tech N/A Incontinence needs N/A DISCHARGED in stable [...] Sravanthi Hollis RN/TC documented in this encounter [facility] 12-26-2024 Telephone encounter Note Noted Willie Kaur APRN.CNP [facility] 12-26-2024 Miscellaneous Notes Noted Willie Kaur [...] caregiver demetria tapia calling to have her Rankomat.pl message she sent below addressed. Yusuf Robles's sons and are in town to make an assessment whether she is able to go home from rehab. Can you talk with them to help with their decision? Please call Nathaniel Medina at [phone]. They are here till Tuesday 12 noon. Thank you. documented in this encounter [facility] 12-26-2024 Telephone encounter Note Contacted kyrie [...] a POA to act on pt's behalf [facility] 12-26-2024 Telephone encounter Note Dec 24 labs reviewed, no changes The results were attached to the M drive [facility] 12-26-2024 Telephone encounter Note Addressed in other encounter. Willie Kaur APRN.DRAKE [facility] 12-26-2024 Miscellaneous Notes Addressed in other encounter. Willie Kaur APRN.DETENTION SERGEANT documented in this encounter [facility] 12-26-2024 Instructions Sravanthi Hollis RN - 12/26/2024 1:09 PM EST WOUND CARE INSTRUCTIONS- Yusuf Medina Wound location: Right ankle [facility] -PLEASE CONTINUE WOUND VAC PREVIOUS ON [...] following changes to the Wound Center at [phone] or go to the Emergency Department: Fever or chills Increased drainage Green or yellow drainage Foul odor Increased pain Hardness around the wound Redness, warmth or swelling of the surrounding tissue Color change to the wound When contacting the wound center at the ([phone]): Leave a message that includes your full [...] to be scheduled through Central Scheduling. Call [phone].(If applicable) Please be aware that the Covid19 exposure questions will be asked as you enter the hospital and as you arrive to each area. Thank you for your patience and understanding as we attempt to protect our patients during this difficult time. Lien Bang DPM/fhm/tc documented in this encounter [facility] 12-26-2024 Note [facility] 12-26-2024 Telephone encounter Note I wish [...] physical safety for discharge. Willie Kaur APRN.DRAKE [facility] 12-26-2024 Telephone encounter Note Spoke to the nurse, naveen Cartwright requested [facility] 12-26-2024 Telephone encounter Note Patients caregiver demetria tapia calling to have her Rankomat[employer]pl message she sent below addressed. Yusuf Robles's sons and are in town to make an assessment whether she is able to go home from rehab. Can you talk with them to help with their decision? Please call Nathaniel Medina at [phone]. They are here till Tuesday 12 noon. Thank you. [facility] Work Phone: 12-25-2024 Telephone encounter Note The following approved medication requests have been transmitted electronically. Requested Prescriptions Signed Prescriptions Disp Refills amLODIPine (NORVASC) 5 mg tablet 90 tablet 3 Sig: TAKE 1 TABLET BY MOUTH ONCE DAILY Authorizing Provider: WILLIE KAUR APRN.DETENTION SERGEANT [facility] 12-25-2024 Miscellaneous Notes The following approved medication requests have been transmitted electronically. Requested Prescriptions Signed Prescriptions Disp Refills amLODIPine (NORVASC) 5 mg tablet 90 tablet 3 Sig: TAKE 1 TABLET BY MOUTH ONCE DAILY Authorizing Provider: WILLIE KAUR APRN.DETENTION SERGEANT Patient has been identified by name and [...] Aditi Phan LPN documented in this encounter [facility] 12-25-2024 Telephone encounter Note Patient has [...] Please review and advise. Aditi Phan LPN [facility] 12-20-2024 Telephone encounter Note Feb 3 labs wnl The differential wasn't done on the cbc The COPPER PLATE PRINTER has added it on moving forward The results were attached to the M drive [facility] 12-20-2024 Telephone encounter Note Spoke to the COPPER PLATE PRINTER, labs requested [facility] 12-13-2024 Telephone encounter Note Lilo from [facility] called [phone] to schedule the follow up, I gave her the [facility] number and 01/08 for the schedule date. Delfina Elias [facility] 12-11-2024 Note [facility] 12-10-2024 Telephone encounter Note Yusuf is still inpt at [facility] She will be d/c to [facility] [phone] [facility] 12-10-2024 Note [facility] 12-10-2024 Note [facility] 12-09-2024 Note [facility] 12-09-2024 Note [facility] 12-08-2024 Note [facility] 12-07-2024 Note [facility] 12-07-2024 Note [facility] 12-06-2024 Note [facility] 12-05-2024 Note [facility] 12-04-2024 Note [facility] 12-03-2024 Note [facility] 12-02-2024 Note [facility] 12-01-2024 Note [facility] 12-01-2024 Note [facility] 12-01-2024 Note [facility] 11-30-2024 Note [facility] 11-29-2024 Note [facility] 11-29-2024 Telephone encounter Note Summary: COPAT ACTION-FOR IDC USE ONLY Images from the original note were not included. 11/28/2024 8:48 PM Pierce Chi GA PROVIDER ADULT [id number] Patient Info Patient Name Sex Yusuf Medina ([id number]) Female 1935 Encounter Notes Progress Notes by Pierce Chi MD, encounter date 11/28/2024: Progress Notes [facility] Outpatient Parenteral Antimicrobial Therapy (OPAT) Start Form Patient Info Patient MRN Patient Name Address Date of [id number] Yusuf Medina [address] [facility] [id number] 1935 Start Date 11/28/2024 Physician Group [facility] [...] Treatment Course Pierce Chi MD Address [address] [place] [address] Prescribing Provider's signature - electronically signed by Pierce Chi MD on 11/28/24 at 8:50 PM [facility] 11-29-2024 Note [facility] 11-28-2024 Note [facility] 11-28-2024 History of Present illness Narrative Images from the original note were not included. [facility] Outpatient Parenteral Antimicrobial Therapy (OPAT) Start Form Patient Info Patient MRN Patient Name Address Date of [id number] Yusuf Medina [id number] [facility] [id number] 1935 Start Date 11/28/2024 Physician Group [facility] [...] Treatment Course Pierce Chi MD Address [address] [place] [address] Prescribing Provider's signature - electronically signed by Pierce Chi MD on 11/28/24 at 8:50 PM documented in this encounter [facility] 11-28-2024 Note [facility] 11-28-2024 Note [facility] 11-27-2024 Telephone encounter Note The following approved medication requests have been transmitted electronically. Requested Prescriptions Signed Prescriptions Disp Refills metFORMIN (GLUCOPHAGE) 850 mg tablet 180 tablet 3 Sig: TAKE 1 TABLET BY MOUTH TWICE DAILY WITH MEALS Authorizing Provider: WILLIE KAUR APRN.CNP [facility] 11-27-2024 Miscellaneous Notes The following approved [...] Martina Tucker MA documented in this encounter [facility] 11-27-2024 Note [facility] 11-27-2024 Telephone encounter Note Patient has [...] Please review and advise. Martina Tucker MA [facility] 11-26-[address] Mendez reviewed labs from [facility]. Dr. Mendez recommended for patient to be seen around mid Dec 2024 as hem/onc follow-up. Grupo Mendez MD November 26, 2024 5:33 PM [facility] Work Phone: 11-26-[address] Mendez reviewed labs from [facility]. Dr. Mendez recommended for patient to be seen around mid Dec 2024 as hem/onc follow-up. Grupo Mendez MD November 26, 2024 5:33 PM Spoke w/ pt certified nurses' aideDemetria. Pt is still inpatient. When she is discharged she will be sent to a rehab and will not be able to make appts. Any time soon. Please advise for further requirements. documented in this encounter [facility] 11-26-2024 Note [facility] 11-26-2024 Telephone encounter Note Spoke w/ pt certified nurses' aideDemetria. Pt is still inpatient. When she is discharged she will be sent to a rehab and will not be able to make appts. Any time soon. Please advise for further requirements. [facility] 11-26-2024 Note [facility] 11-25-2024 Note [facility] 11-24-2024 Note [facility] 11-23-2024 Note [facility] 11-23-2024 Note [facility] 11-22-2024 Note [facility] 11-21-2024 Note [facility] 11-21-2024 Telephone encounter Note Currently has appointment in Rheumatology 01/04/25 to evaluate for inflammatory arthritis. There was a Hematology appointment scheduled 12/03/24, but rescheduled by family due to location. MRI ankle 1/6/25 ordered by Orthopedics. Patient sent My Chart message to Orthopedics 11/20/24. I reminded patient/family that My Chart can take up to 72 business hours for response. Willie Kaur APRN.CNP [facility] 11-21-2024 Miscellaneous Notes Currently has appointment in Rheumatology 01/04/25 to evaluate for inflammatory arthritis. There was a Hematology appointment scheduled 12/03/24, but rescheduled by family due to location. MRI ankle 11/19/24 ordered by Orthopedics. Patient sent My Chart message to Orthopedics 11/20/24. I reminded patient/family that My Chart can take up to 72 business hours for response. Willie Kaur APRN.DRAKE documented in this encounter [facility] 11-19-2024 History of Present illness Narrative [...] PATIENT PRESENTS WITH AN 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: No RADIOLOGY DEPARTMENT: MR; Exam(s) Completed: Lower MSK: Ankle/Hind Foot, right PERIPHERAL IV DATA: Not applicable SIGNED BY: FRANCIS Tierney November 19, 2024 10:07 AM documented in this encounter [facility] 11-19-2024 Note HNO ID: [id number] Author: YAZ MAYFIELD MRI Tech Service: Radiology Author Type: Torsion [place] Coiling Machine Setter Type: Progress Notes Filed: 11/19/2024 10:08 Note [...] PATIENT PRESENTS WITH AN 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: No RADIOLOGY DEPARTMENT: MR; Exam(s) Completed: Lower MSK: Ankle/Hind Foot, right PERIPHERAL IV DATA: Not applicable SIGNED BY: FRANCIS Tierney November 19, 2024 10:07 AM [facility] 11-06-2024 Telephone encounter Note Patient took a sooner appt in November. [facility] 11-06-2024 Miscellaneous Notes Patient took a sooner appt in November. Currently has Rheumatology scheduled 01/04/25. Are there any sooner appointments and would family be interested? She has been seeing Hematology and they think that her abnormal blood work may have a Rheumatology cause. Willie Kaur APRN.DETENTION SERGEANT documented in this encounter [facility] 11-06-2024 Telephone encounter Note Currently has Rheumatology scheduled 01/04/25. Are there any sooner appointments and would family be interested? She has been seeing Hematology and they think that her abnormal blood work may have a Rheumatology cause. Willie Kaur APRN.DETENTION SERGEANT [facility] 11-05-2024 Telephone encounter Note Patient has secondary leukocytosis in the setting of highly elevated sed rate, RUBEN 1:320 titer, positive TRUANT OFFICER Hematology work-up was essentially negative highlighting concern for rheumatological disease. Patient is leaving to [place] for 2 weeks I will schedule lab on 11/21/2024 and see her on 11/22/2024 at 9:10 AM for iron deficiency (this is separate issue). Renetta with care coordination will kindly help with arranging lab and follow-up as above. Patient and family aware of my plan. Grupo Mendez MD November 05, 2024 6:55 PM [facility] 11-05-2024 Miscellaneous Notes Patient has secondary leukocytosis in the setting of highly elevated sed rate, RUBEN 1:320 titer, positive TRUANT OFFICER Hematology work-up was essentially negative highlighting concern for rheumatological disease. Patient is leaving to [place] for 2 weeks I will schedule lab on 11/21/2024 and see her on 11/22/2024 at 9:10 AM for iron deficiency (this is separate issue). Renetta with care coordination will kindly help with arranging lab and follow-up as above. Patient and family aware of my plan. Grupo Mendez MD November 05, 2024 6:55 PM documented in this encounter [facility] 11-01-2024 Note Addended by: SIMONE AGUILAR on: 11/01/2024 03:34 PM Modules accepted: Orders [facility] 11-01-2024 Miscellaneous Notes Addended by: SIMONE KEVIN on: 11/01/2024 03:34 PM Modules accepted: Orders documented in this encounter [facility] 11-01-2024 Note HNO ID: [id number] Author: SIMONE KEVIN MD Service: ? Author [...] L REMV CATARACT EXTRACAP,INSERT LENS Bilateral 2020 [facility] Family History: FAMILY HISTORY Problem Relation [...] her anatomy B (more content not included)... [facility] 11-01-2024 History of Present illness Narrative [...] L REMV CATARACT EXTRACAP,INSERT LENS Bilateral 2020 [facility] Family History: FAMILY HISTORY Problem Relation [...] next visit: No PCP: [place] [id number] [facility] [id number] FELLOW / RESIDENT: No fellow or resident assisted in this office visit. Simone Kevin MD documented in this encounter [facility] 10-29-2024 Note HNO ID: [id number] Author: AB BENSON MD Service: ? Author Type: Physician Type: Progress Notes Filed: 11/04/2024 19:29 Note Text: This note was created using [employer]. Subjective Yusuf Medina is a 88 year [...] and family voiced understanding. Ab Benson MD [facility] 10-29-2024 History of Present illness Narrative Images from the original note were not included. This note was created using [email or web address]. Subjective Yusuf Medina is a 88 year [...] Ab Benson MD documented in this encounter [facility] 10-12-2024 Telephone encounter Note The following approved medication requests have been transmitted electronically. Requested Prescriptions Signed Prescriptions Disp Refills meloxicam (MOBIC) 15 mg tablet 90 tablet 3 Sig: TAKE 1 TABLET BY MOUTH ONCE DAILY NEEDED FOR PAIN. DO NOT COMBINE WITH DICLOFENAC GEL Authorizing Provider: WILLIE KAUR APRN.DETENTION SERGEANT [facility] 10-12-2024 Miscellaneous Notes The following approved [...] WITH DICLOFENAC GEL Please review and advise. Maritna Tucker MA documented in this encounter [facility] 10-12-2024 Telephone encounter Note Patient has [...] Please review and advise. Martina Tucker MA [facility] 09-20-2024 History of Present illness Narrative [...] L REMV CATARACT EXTRACAP,INSERT LENS Bilateral 2020 [facility] Family History: FAMILY HISTORY Problem Relation Age of Onset None Brother None Sister None Brother Medications: Current Outpatient Medications Medication Sig traZODone (DESYREL) 50 mg tablet Take 1 tablet by mouth at bedtime as needed for sedation. blood sugar diagnostic ([employer]UCH ULTRA TEST) test strip Test blood sugar [...] next visit: No PCP: [place] [id number] [facility] [id number] FELLOW / RESIDENT: No fellow or resident assisted in this office visit. Simone Kevin MD documented in this encounter [facility] 09-20-2024 Note HNO ID: [id number] Author: SIMONE KEVIN MD Service: ? Author [...] L REMV CATARACT EXTRACAP,INSERT LENS Bilateral 2020 [facility] Family History: FAMILY HISTORY Problem Relation Age of Onset None Brother None Sister None Brother Medications: Current Outpatient Medications Medication Sig traZODone (DESYREL) 50 mg tablet Take 1 tablet by mouth at bedtime as needed for sedation. blood sugar diagnostic (ViadeoTOUCH ULTRA TEST) test strip Test blood sugar [...] May have so (more content not included)... [facility] 09-19-2024 History of Present illness Narrative [...] PATIENT PRESENTS WITH AN 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: No RADIOLOGY DEPARTMENT: General X-ray: Exam(s) Completed: Lower Extremity X-Ray(s): Foot, Right and Wt. Bearing and Heel, Right and Wt. Bearing PERIPHERAL IV DATA: Not applicable SIGNED BY: RUT Hui September 19, 2024 2:13 PM documented in this encounter [facility] 09-19-2024 Note HNO ID: [id number] Author: ZAID KUHN CT Service: Radiology Author [...] PATIENT PRESENTS WITH AN 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: No RADIOLOGY DEPARTMENT: General X-ray: Exam(s) Completed: Lower Extremity X-Ray(s): Foot, Right and Wt. Bearing and Heel, Right and Wt. Bearing PERIPHERAL IV DATA: Not applicable SIGNED BY: RUT Hui September 19, 2024 2:13 PM [facility] 09-18-2024 Telephone encounter Note Results were reviewed. I spoke with xlgjin-cb-[id number] Demetria about suspicion for calcaneal bone fracture. Orders Signed This Visit (1) CONSULT PANEL TO ORTHOPAEDICS STAT, Dx: 1. Right ankle swelling 2. Closed nondisplaced fracture of right calcaneus, unspecified portion of calcaneus, initial encounte Grupo Mendez MD September 18, 2024 9:19 PM [facility] 09-18-2024 Miscellaneous Notes Results were reviewed. I spoke with vceflh-tf-uij Demetria about suspicion for calcaneal bone fracture. Orders Signed This Visit (1) CONSULT PANEL TO ORTHOPAEDICS STAT, Dx: 1. Right ankle swelling 2. Closed nondisplaced fracture of right calcaneus, unspecified portion of calcaneus, initial encounte Grupo Mendez MD September 18, 2024 9:19 PM documented in this encounter [facility] 09-18-2024 History of Present illness Narrative [...] PATIENT PRESENTS WITH AN 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: No RADIOLOGY DEPARTMENT: Ultrasound PERIPHERAL IV DATA: Not applicable SIGNED BY: Christina Tucker RDMS September 18, 2024 8:37 AM documented in this encounter [facility] 09-18-2024 Note [facility] 09-17-2024 Telephone encounter Note This was addressed in hematology appointment in [place]. Closing this encounter [facility] 09-17-2024 Miscellaneous Notes This was addressed in hematology appointment in [place]. Closing this encounter Vm left for patient's son. She has an appointment today in [place]-can Yusuf go to express care there after hematology? documented in this encounter [facility] 09-17-2024 Instructions Grupo Mendez MD - 09/17/2024 3:52 PM EST Please schedule Xray right ankle today Please schedule STAT US DVT right lower leg tomorrow Please send patient to lab today For scheduling questions, please call [phone] (tests and appointments). Ask for the oncology soil specialist. For symptom management or care coordination questions, please call Renetta Holder at [phone] or use my chart to reach us. After hours with medical questions, please call the doctor on-call at [phone]. Thank you, Grupo Mendez MD documented in this encounter [facility] 09-17-2024 History of Present illness Narrative Consultation requested by Dr. Migdalia Cramer for an opinion regarding leukocytosis. My final recommendations will be communicated back to the requesting physician by way of shared Medical record or letter to requesting physician via US mail. Presenting complaint: Patient Yusuf Medina was sent to my office to be evaluated for leukocytosis. ASSESSMENT: (A87.627) Leukocytosis, unspecified type (primary encounter diagnosis) Comment: [...] L REMV CATARACT EXTRACAP,INSERT LENS Bilateral 2020 [facility] FAMILY HISTORY Problem Relation Age of [...] as needed for sedation. blood sugar diagnostic (ViadeoTOUCH ULTRA TEST) test strip Test blood sugar [...] Range Status 09/17/2024 5.5 % Final Abs Letcher Date Value Ref Range Status 09/17/2024 0.52 [...] 05/19/2020 12 Grupo Mendez MD CC: Migdalia Otriz MD documented in this encounter [facility] 09-17-2024 Note HNO ID: [id number] Author: GRUPO MENDEZ MD Service: ? Author [...] office to be evaluated for leukocytosis. ASSESSMENT: (D79.480) Leukocytosis, unspecified type (primary encounter diagnosis) Comment: [...] L REMV CATARACT EXTRACAP,INSERT LENS Bilateral 2020 [facility] FAMILY HISTORY Problem Relation Age of [...] as needed for sedation. blood sugar diagnostic (ViadeoTOUCH ULTRA TEST) test strip Test blood sugar [...] ONCE DAILY metFORMIN (more content not included)... [facility] 09-17-2024 Telephone encounter Note Vm left for patient's son. She has an appointment today in [place]-can Yusuf go to express care there after hematology? [facility] 09-13-2024 Note HNO ID: [id number] Author: MIGDALIA CRAMER MD Service: ? Author [...] panel in 6 months Migdalia Cramer MD [facility] 09-13-2024 History of Present illness Narrative [...] Migdalia Cramer MD documented in this encounter [facility] 09-13-2024 Instructions Migdalia Cramer MD - [...] review all the medicines you take, even sslh-jab-jhxayfx medicines. As you get older, the way [...] certain medical conditions. documented in this encounter [facility] 09-04-2024 Telephone encounter Note Patient has been scheduled for 09/17 Thank you [facility] 09-04-2024 Miscellaneous Notes Patient has been scheduled for 09/17 Thank you Please contact the patient's ehftky-yj-tav Demetria at [phone] to assist with scheduling a consult with hematology/oncology for a high white blood cell count. I sent a MyChart message today about test results: Rhys Castillo [...] recommend we get a consultation with a life skills specialist, a blood specialist. I put an order in for a consultation and will ask a soil specialist to contact you to get it set up. We just want to make sure there is nothing serious going on that we should be more concerned about. Migdalia Cramer MD documented in this encounter [facility] 09-04-2024 Telephone encounter Note Please contact the patient's emkbvy-qz-bia Demetria at [phone] to assist with scheduling a consult with hematology/oncology for a high white blood cell count. I sent a MyChart message today about test results: Rhys Castillo [...] recommend we get a consultation with a life skills specialist, a blood specialist. I put an order in for a consultation and will ask a soil specialist to contact you to get it set up. We just want to make sure there is nothing serious going on that we should be more concerned about. Migdalia Cramer MD [facility] 08-22-2024 Telephone encounter Note Patients sister in law has been informed. Thank you [facility] 08-22-2024 Miscellaneous Notes Patients sister in law has been informed. Thank you Please let her know that Dr. Cramer is currently evaluating the lab results and will reach out to her as soon as he is able. He is currently out of the office. Willie APRN.CNP Patients sister in law called and wanted to discuss the results of the labs. documented in this encounter [facility] 08-21-2024 Telephone encounter Note Please let her know that Dr. Cramer is currently evaluating the lab results and will reach out to her as soon as he is able. He is currently out of the office. Willie APRN.CNP [facility] 08-21-2024 Telephone encounter Note The following approved medication requests have been transmitted electronically. Requested Prescriptions Signed Prescriptions Disp Refills blood sugar diagnostic (ONETOUCH ULTRA TEST) test strip 100 Strip 3 Sig: Test blood sugar once daily Authorizing Provider: WILLIE KAUR APRN.CNP [facility] 08-21-2024 Miscellaneous Notes The following approved [...] 2024 10:12 AM documented in this encounter [facility] 08-21-2024 Telephone encounter Note Patient has [...] Please review and advise. Jame Hernandez MA [facility] 08-21-2024 Telephone encounter Note Prescription [...] Perla Perez August 21, 2024 10:12 AM [facility] 08-21-2024 Telephone encounter Note Patients sister in law called and wanted to discuss the results of the labs. [facility] 08-14-2024 History of Present illness [...] COMBINE WITH DICLOFENAC GEL blood sugar diagnostic (ViadeoTOUCH ULTRA TEST) test strip Test blood sugar [...] a long period of time Willie Kaur APRN.DETENTION SERGEANT I have personally performed a hmbb-mk-bzbg evaluation on this patient. I have reviewed [...] Migdalia Cramer MD documented in this encounter [facility] 08-14-2024 Note HNO ID: [id number] Author: MIGDALIA CRAMER MD Service: ? Author [...] COMBINE WITH DICLOFENAC GEL blood sugar diagnostic (ViadeoTOUCH ULTRA TEST) test strip Test blood sugar [...] swelling or eryt (more content not included)... [facility] 08-13-2024 Note SARS-COV-2 (AGENT OF COVID-19) RNA: Not detected INFLUENZA A RNA: Not detected INFLUENZA B RNA: Not detected RESPIRATORY SYNCYTIAL VIRUS (RSV) RNA: Not detected [facility] Comment on above: Performed By: #### 9 [id number] ####JENN[facility]ER [facility]ORY[facility] [id number] [address] 08-13-2024 Telephone encounter Note Called sister in law who is with the patient, patient is Brazilian speaking. ? Blood sugar-patient checks every am, did not do today and is not understanding that sister in law would like her to check it now. She did eat this morning Falls recently Concern based on pill box that she may have taken a days Sister-in -law is in agreement that patient needs to be seen in an emergency room-[place] is close. Reason for Disposition [1] Drinking very little AND [2] dehydration suspected (e.g., no urine > 12 hours, very dry mouth, very lightheaded) Answer Assessment - Initial Assessment Questions 1. DESCRIPTION: "Describe how you are feeling." Patient speaks Brazilian, Sister-in -law is there with her. Patient [...] pain) no Protocols used: Weakness (Generalized) and [id number] [facility] 08-13-2024 Miscellaneous Notes Called sister in law who is with the patient, patient is Brazilian speaking. ? Blood sugar-patient checks every am, did not do today and is not understanding that sister in law would like her to check it now. She did eat this morning [place] recently Concern based on pill box that she may have taken a days Sister-in -law is in agreement that patient needs to be seen in an emergency room-[place] is close. Reason for Disposition [1] Drinking very little AND [2] dehydration suspected (e.g., no urine > 12 hours, very dry mouth, very lightheaded) Answer Assessment - Initial Assessment Questions 1. DESCRIPTION: "Describe how you are feeling." Patient speaks Brazilian, Sister-in -law is there with her. Patient [...] pain) no Protocols used: Weakness (Generalized) and Efwiear-[id number] Patient's caregiver Demetria spoke with the patient [...] seen today. Demetria can be reached at [phone]. documented in this encounter [facility] 08-13-2024 Telephone encounter Note Patient's caregiver [...] seen today. Demetria can be reached at [phone]. [facility] 08-10-2024 Telephone encounter Note The following approved medication requests have been transmitted electronically. Requested Prescriptions Signed Prescriptions Disp Refills glipiZIDE (GLUCOTROL XL) 2.5 mg 24 hr tablet 90 tablet 3 Sig: TAKE 1 TABLET BY MOUTH ONCE DAILY Authorizing Provider: MITWILLIE HATCH APRN.CNP [facility] 08-10-2024 Miscellaneous Notes The following approved medication requests have been transmitted electronically. Requested Prescriptions Signed Prescriptions Disp Refills glipiZIDE (GLUCOTROL XL) 2.5 mg 24 hr tablet 90 tablet 3 Sig: TAKE 1 TABLET BY MOUTH ONCE DAILY Authorizing Provider: WILLIE KARU APRN.CNP Patient has been identified by name [...] Sandrita Christianson LPN documented in this encounter [facility] 08-10-2024 Telephone encounter Note Patient has [...] Please review and advise. Sandrita Christianson LPN [facility] 07-19-2024 Telephone encounter Note The following [...] BEING SHIPPED Authorizing Provider: WILLIE KAUR APRN.CNP [facility] 07-19-2024 Miscellaneous Notes The following approved [...] WILLIE KAUR APRN.CNP Short term supply to [facility], residential to [facility] per message below. [...] sent to [facility]. Please advise Perla Bang [facility] July 19, 2024 9:49 AM documented in this encounter [facility] 07-19-2024 Telephone encounter Note Short term supply to [facility], salvage determiner to [facility] pharmacy per message below. [facility] 07-19-2024 Telephone encounter Note Prescription Refill [...] short term refill can be sent to [facility] and then the rest sent to [facility]. Please advise Perla Bang [facility] July 19, 2024 9:49 AM [facility] 07-12-2024 Instructions Migdalia Cramer MD - 07/12/2024 9:56 AM EDT Try drinking 1 Glucerna a day to get some extra calories. I don't want you to continue to lose weight. Take all medications exactly as prescribed. Please have labs done again in late August. Keep appointment scheduled for 09/13/24 for Medicare Annual Wellness Visit. documented in this encounter [facility] 07-12-2024 Note HNO ID: [id number] Author: MIGDALIA CRAMER MD Service: ? Author [...] of keeping this visit Migdalia Cramer MD [facility] 07-12-2024 History of Present illness Narrative [...] Migdalia Cramer MD documented in this encounter [facility] 05-23-2024 Telephone encounter Note Patient has [...] Please review and advise. Sandrita Christianson LPN [facility] 05-23-2024 Miscellaneous Notes Patient has been [...] only has 2 pills left Perla Bang [facility] May 23, 2024 10:28 AM documented in this encounter [facility] 05-23-2024 Telephone encounter Note Prescription Refill [...] only has 2 pills left Perla Bang [facility] May 23, 2024 10:28 AM [facility] 04-26-2024 Telephone encounter Note Scheduled for Medicare AWV 09/13/24 Has lab orders The following approved medication requests have been transmitted electronically. Requested Prescriptions Signed Prescriptions Disp Refills pioglitazone (ACTOS) 45 mg tablet 90 tablet 3 Sig: Take 1 tablet by mouth once daily. Authorizing Provider: MIGDALIA CRAMER MD [facility] 04-26-2024 Miscellaneous Notes Scheduled for Medicare [...] Jame Hernandez MA documented in this encounter [facility] 04-26-2024 Telephone encounter Note Patient has [...] Please review and advise. Jame Hernandez MA [facility] 04-16-2024 Telephone encounter Note Spoke with sister in Demetria saenz and explained that her current Rx is for Glipizide/Glucotrol 2.5 mg once daily - not for Glyburide. Verbalized understanding. No further questions. [facility] 04-16-2024 Miscellaneous Notes Spoke with sister in Demetria saenz and explained that her current Rx is for Glipizide/Glucotrol 2.5 mg once daily - not for Glyburide. Verbalized understanding. No further questions. Patients in law Augustin called and needs clarification on the patient diabetes medications she stated that she got a call from [employer] stating that she had glyburide ready for pick up man but she thought she was supposed to be taking glipizide. Please advise documented in this encounter [facility] 04-16-2024 Telephone encounter Note Patients in law Augustin called and needs clarification on the patient diabetes medications she stated that she got a call from [employer] stating that she had glyburide ready for pick up man but she thought she was supposed to be taking glipizide. Please advise [facility] 03-21-2024 History of Present illness Narrative [...] its relevant components. documented in this encounter [facility] 03-13-2024 History of Present illness Narrative [...] POPULATION HEALTH NAVIGATION OUTREACH Action/FYI Spoke with [id number] Demetria. Patient is on [facility] for the following HM care [...] Diabetic Eye Exam HBA1C 03/21/2024 in [facility] with GERTRUDIS BILL - Dilated Retinal Exam 04/12/2024 in [facility] with ADITI CAMARGO - U pseudogout 07/12/[address] [facility] with MIGDALIA CRAMER - Follow Up, HCC Gap Closure 09/13/[address] [facility] with MIGDALIA CRAMER - AWV Due HCC related Navigation Signature: Lien Rutledge MA March 13, 2024 2:52 PM documented in this encounter [facility] 02-28-2024 Miscellaneous Notes The following approved medication requests have been transmitted electronically. Requested Prescriptions Signed Prescriptions Disp Refills lansoprazole (PREVACID) 30 mg capsule 90 capsule 3 Sig: Take 1 capsule by mouth once daily. Authorizing Provider: WILLIE KAUR APRN.DETENTION SERGEANT Order pended for mail Last OV-04/23/2023 [facility] Next OV-none Production Clerk is calling ,asking for a refill on the following medications . pravastatin (PRAVACHOL) 20 mg tablet 90 tablet 3 10/23/2022 10/23/2023 Sig: Take 1 tablet by mouth once daily. Sent to pharmacy as: pravastatin (PRAVACHOL) 20 mg tablet Class: Normal Route: ORAL Order: [id number] E-Prescribing Status: Receipt confirmed by pharmacy (10/23/2022 9:10 AM EST) She doesn't have many left , they are asking for this fill to be sent to the [facility] . Then if she gets refills send it to the mail in pharmacy . Please advise and route back so we can make certified nurses' aide aware . Thanks documented in this encounter [facility] 02-01-2024 Miscellaneous Notes The following approved medication requests have been transmitted electronically. Requested Prescriptions Signed Prescriptions Disp Refills lisinopril-hydroCHLOROthiazide (ZESTORETIC) 20-25 mg per tablet 90 tablet 3 Sig: TAKE 1 TABLET BY MOUTH ONCE DAILY Authorizing Provider: WILLIE KAUR APRN.CNP documented in this encounter [facility] 02-01-2024 Miscellaneous Notes The following approved medication requests have been transmitted electronically. Requested Prescriptions Signed Prescriptions Disp Refills amLODIPine (NORVASC) 5 mg tablet 90 tablet 3 Sig: TAKE 1 TABLET BY MOUTH ONCE DAILY Authorizing Provider: WILLIE KAUR APRN.CNP documented in this encounter [facility] 01-24-2024 Miscellaneous Notes Contacted the caregiver stated the patient pick up man the prescription. Request denied no further action needed. 7 day short term Rx sent to [facility] on 01/11/24. 1 year residential Rx sent to [facility] on 01/11/24. Please call to clarify [...] Hernandez MA [facility] Willie Kaur APRN.CNP Order Providers Prescribing Provider Encounter Provider Willie Kaur APRN.Migdalia Victoria MD Outpatient Medication Detail Disp Refills Start End metFORMIN (GLUCOPHAGE) 850 mg tablet 14 tablet 0 01/11/2024 01/18/2024 Sig: Take 1 tablet by mouth two times a day with meals for 7 days. Sent to pharmacy as: metFORMIN (GLUCOPHAGE) 850 mg tablet Class: Normal Route: ORAL Order: [id number] E-Prescribing Pt states she is completely out and mail order has not come in would like a short supply sent to [facility] [address] documented in this encounter [facility] 01-11-2024 Miscellaneous Notes The following approved [...] for temporary supply to be sent to [facility] while they wait for [facility] for 90 day supply. Please review and advise. Jame Hernandez MA Yusuf Medina called today. Reason : Yusuf certified nurses' aide is calling today , she states the [...] mg tablet Class: Normal Route: ORAL Order: [id number] E-Prescribing Status: Receipt confirmed by pharmacy (10/14/2023 2:49 PM EST) Please advise and route back so caregiver can be updated . Thanks documented in this encounter [facility] 10-14-2023 Miscellaneous Notes The following approved [...] also needs an emergency script sent to [facility] on [address] [place]. Patient has been identified by name and date of : Yes Requested Prescriptions Pending Prescriptions Disp Refills metFORMIN (GLUCOPHAGE) 850 mg tablet 180 tablet 3 Sig: Take 1 tablet by mouth two times a day with meals. RX INSTRUCTIONS: Patient aware RX escripted to mail away pharmacy. No need to notify patient. Dinora Perez documented in this encounter [facility] 09-06-2023 Miscellaneous Notes The following approved [...] Jame Hernandez MA documented in this encounter [facility] 08-31-2023 Miscellaneous Notes Called the number on the chart and confirmed with certified nurses' aide that the medication has been sent as [...] that 1 year supply was sent to [facility] pharmacy on 06/02/23. Demetria states that's the problem, all her medications need to go through mail order as her insurance will not cover medications sent to [facility]. Informed her that will send high priority to provider to send short term supply of medication to pharmacy today so it can be picked up and residential supply to be sent through mail order. Demetria agreeable and verbalized understanding. Please advise Thank you! Please call to review with Demetria the pharmacy issue for patient's Glipizide. She is asking for a call today as the patient has 1 left. documented in this encounter [facility] 06-23-2023 Miscellaneous Notes The following approved [...] Laura Hay Pss documented in this encounter [facility] 06-03-2023 Miscellaneous Notes Called and left VM. Morro Tomas, Patient Motor Mechanic 1st attempt Lvm , will try [...] would like the medication sent to the [facility] [address] [place] [address] Leanne Ding documented in this encounter [facility] 05-12-2023 Miscellaneous Notes 7.6 (03/08/2023) documented in this encounter [facility] 04-28-2023 History of Present illness Narrative [...] Care Gap or Scheduling/Wellness visits Payer: Payor: [facility] MEDICARE / Plan: [facility] MEDICARE ADVANTAGE PPO / Product [...] 2023 12:52 PM documented in this encounter [facility] 04-20-2023 Miscellaneous Notes Contacted patient's caregiver [...] new one? Please advise Thank you Patient's certified nurses' aide Demetria calling with a question for a nurse regarding the patient's blood glucose monitor. Please call. TY documented in this encounter [facility] 04-20-2023 Miscellaneous Notes Caregiver made aware [...] if ok. TY documented in this encounter [facility] 04-13-2023 Instructions Willie Kaur APRN.CNP - [...] dropping too low documented in this encounter [facility] 04-13-2023 History of Present illness Narrative [...] diabetes. Demetria must come to act as professional builder, they decline professional builder. Patients last HgbA1C was Hemoglobin A1C (%) Date Value 03/08/2023 7.6 10/21/2022 7.5 04/27/2022 7.1 10/12/2021 7.4 09/10/2020 6.7 01/24/2020 6.8 ). Last BP 04/13/23 : 125/63 03/29/23 : 150/71 03/17/23 : 146/67 CKD3 Creatinine Date Value Ref Range Status 03/09/2023 0.92 0.58 - 0.96 mg/dL Final Demetria as professional builder Declines [facility] professional builder Current Outpatient Medications on File Prior to Visit Medication Sig metFORMIN (GLUCOPHAGE) 1,000 mg tablet Take 1 tablet by mouth twice daily with meals. blood sugar diagnostic (ViadeoTOUCH ULTRA TEST) test strip Test blood sugar [...] mellitus, non-insulin dependent (NIDDM or type II) ([facility]) - ICD9: 250.00, ICD10: E11.9 (primary diagnosis) [...] diabetes. Demetria must come to act as professional builder, they decline professional builder. - GLIPIZIDE ER 2.5 MG TABLET, EXTENDED RELEASE 24 HR 2. CKD stage 3 due to type 2 diabetes mellitus (HCC) - ICD9: 250.40, 585.3, ICD10: E11.22, N18.30 - Stable Willie Kaur APRN.DRAKE documented in this encounter [facility] 03-29-2023 Instructions Willie Kaur APRN.DRAKE - 03/29/2023 3:50 PM EDT Check blood sugar once per day Tuesday - check in morning Tuesday - check in evening Tuesday - check in morning Tuesday - check in evening - check in morning Tuesday - check in evening Tuesday - check in morning documented in this encounter [facility] 03-29-2023 History of Present illness Narrative SUBJECTIVE: Yusuf Medina is a 87 year old female who presents for 2 week evaluation and treatment of DM Sister in law Augustin acts as professional builder, declines phone professional builder 03/17/23 Family Medicine office visit Sister in [...] function - BASIC METABOLIC PNL Willie Kaur APRN.DRAKE documented in this encounter [facility] 03-24-2023 Miscellaneous Notes Called caregiver and [...] like office to call her back at [phone] as soon as possible. Patient has been identified by name and birthdate. Duration of symptoms: N/A Person calling: caregiver: Demetria Call patient at: at home [phone] (home) [phone] (cell) Was an appointment scheduled: No Closing statement: Results or non-symptom based questions: Thank you for calling [facility], your call will be returned within the next business day. Laura Hay Pss documented in this encounter [facility] 03-22-2023 Miscellaneous Notes Spoke with patient's caregiver, Demetria. Documented in nurse triage encounter from 03/18/23. Patient caregiver called back.She would like a call back at [phone] Thanks Left message to call the office back, may speak with any available triage nurse. Gabbie Melchor RN Demetria is calling on behalf of Yusuf. She has blood sugars readings to give and would like to speak to a nurse with the readings and any changed to meds. Please call her at [phone] documented in this encounter [facility] 03-17-2023 History of Present illness Narrative [...] Lymph 1.00 - 4.00 k/uL 0.71 (L) Letcher% % 5.7 Abs Letcher <0.87 k/uL 0.99 (H) Eosin% % 0.7 [...] Demetria prefers to not drive to [address] [place] so she will try to reschedule this. - CONSULT TO MANAGER ASSURANCE 3. Leukocytosis, unspecified type - ICD9: 288.60, ICD10: D72.829 - Resolved 4. Type 2 diabetes mellitus with stage 3 chronic kidney disease, without long-term current use of insulin ([facility]) - ICD9: 250.40, 585.3, ICD10: E11.22, N18.30 [...] 2023 2:20 PM documented in this encounter [facility] 03-10-2023 History of Present illness Narrative Noted Willie Kaur APRN.CNP TCM Home Visit Referral Source of Stratification: [facility] Admission Status: Discharged Readmission Risk Score: [...] Network Status: In-Network Discharge Pt discharged from [facility] on 03/09/23. Admitted for: Arthalgia Contact made with patient: Yes Hi my name is Lien Hankins RN and I am calling from the [facility] on behalf of your PCP, Migdalia [...] like to speak with a social work engineering team supervisor to help give you support for any [...] I will send your request to a soil specialist who will contact and assist you with [...] Ordered -: No documented in this encounter [facility] 03-07-2023 History of Past i llness [...] of this encounter (statuses as of 03/10/2023) [facility] History of Past illness Narrative* Problem [...] of this encounter (statuses as of 03/19/2023) [place] [id number] History of Past illness Narrative* Problem Noted [...] of this encounter (statuses as of 03/23/2023) [facility] of Past illness Narrative* Problem [...] Chronic Pain service -Patient's niece and POCece Laura called Dr. Martines on 08/26/2015 to [...] of this encounter (statuses as of 03/24/2023) [facility] of Past [facility] Narrative* Problem [...] of this encounter (statuses as of 03/30/2023) [facility] Narrative* Problem [...] of this encounter (statuses as of 04/14/2023) [facility] Narrative* Problem [...] -Patient's niece and POA Laura called Dr. Maritnes on 08/26/2015 to get an update on [...] of this encounter (statuses as of 04/20/2023) [facility] Narrative* Problem [...] of this encounter (statuses as of 04/20/2023) [facility] Narrative* Problem [...] of this encounter (statuses as of 04/28/2023) [facility] Narrative* Problem [...] of this encounter (statuses as of 05/16/2023) [facility] Narrative* Problem [...] of this encounter (statuses as of 06/15/2023) [facility] Narrative* Problem [...] of this encounter (statuses as of 06/23/2023) [facility] Narrative* Problem [...] of this encounter (statuses as of 08/31/2023) [facility] Narrative* Problem [...] of this encounter (statuses as of 09/06/2023) [facility] Narrative* Problem [...] of this encounter (statuses as of 10/14/2023) [facility] Narrative* Problem [...] of this encounter (statuses as of 01/12/2024) [facility] Narrative* Problem [...] of this encounter (statuses as of 01/24/2024) [facility] Narrative* Problem [...] of this encounter (statuses as of 02/01/2024) [facility] Narrative* Problem [...] of this encounter (statuses as of 02/01/2024) [facility] Narrative* Problem [...] of this encounter (statuses as of 02/29/2024) [facility] Miscellaneous Notes* Telephone Encounter - Ok [...] advise. Jame Hernandez MA [facility] Miscellaneous Notes* Telephone Encounter - Willie Kaur APRN.CNP - 01/19/2023 3:48 PM EST The following approved medication requests have been transmitted electronically. Requested Prescriptions Signed Prescriptions Disp Refills blood sugar diagnostic (ONETOUCH ULTRA TEST) test strip 100 Strip 3 Sig: Test blood sugar once daily Authorizing Provider: WILLIE KAUR APRN.CNP * Telephone Encounter - Cinthia Pierson Christiane - 01/19/2023 10:19 AM EST Yusuf Maciasariel alvarado caregiver is calling today, : 1935 Allergies: Patient has no known allergies. (home) [phone] (cell) Reason for call: patient needs a refill on the following medications Disp Refills Start End blood sugar diagnostic (ONETOUCH ULTRA BLUE TEST STRIP) test strip 300 Strip 3 2019 Sig: USE DIRECTED TO TEST BLOOD SUGARS 3 TIMES A DAY Sent to pharmacy as: blood sugar diagnostic (ONETOUCH ULTRA BLUE TEST STRIP) test strip Class: Normal Order: [id number] E-Prescribing Status: Receipt confirmed by pharmacy (2019 10:20 AM EST) Please advise and make patient aware Thanks [facility] Miscellaneous Notes* Telephone Encounter - Willie [...] advise. Sandrita Christianson LPN [facility] History of Present illness Narrative* Migdalia [...] follow-up. Migdalia Cramer MD [facility] Miscellaneous Notes* Telephone Encounter - Willie Kaur APRN.DRAKE - 10/04/2022 12:47 PM EST The following [...] advise. Sandrita Christianson LPN [facility]17[facility]22 Miscellaneous Notes* Telephone Encounter - Willie [...] advise. Sandrita Christianson LPN documented in [facility]10-[facility]-2022 Miscellaneous Notes* Telephone Encounter - Agustina [...] she only wants 14 days to local [facility] Pharmacy - I made a copy and corrected the amount. Then I entered her request for the mail order going [facility]. Each is assigned to the correct Pharmacy . Patient aware RX will be sent to pharmacy. Please call Demetria once sent at [phone]. Jodi Perez documented in [facility] encounterL[facility]07-29-2022 Miscellaneous Notes* Telephone Encounter - Willie [...] his note. They should be able to pick up man a kit form [facility] lab. He also asked them to consider a diagnostic colonoscopy, which is not Cologuard. Willie Kaur APRN.CNP * Telephone Encounter - Sandrita Christianson LPN - 06/10/2022 9:56 AM EDT Fax received from [employer] that pt has not completed Cologuard that was ordered on 04/08/22. Fax scanned into pt's chart (according to chart, pt had diag occult blood exam on 04/27/22) Please advise Thank you documented in this encounterL[facility]07-15-2022 Miscellaneous Notes* Telephone Encounter - Willie [...] she does not have any glipizide left? Production Clerk then proceeded to ask questions regarding pioglitazone-"is [...] send Short term supply of Glipizide to [facility] pharmacy- [address] (pended for provider). * Telephone Encounter - Sandrita Christianson LPN - 05/28/2022 9:24 AM EDT PSS received call from pt's certified nurses' aide Demetria. Pt informed Demetria that she is out of her Glyburide. PSS transferred call to this nurse, spoke with Demetria who informed me that pt told her she does not have any Glyburide left in her bottle. Reviewed medication list & chart with Demetria on phone. MCmessage from 04/20/21- shows Glyburide was not covered [...] will call our office. documented in [facility] encounterL[facility]06[facility] History of Present illness Narrative* Migdalia [...] daily meds yet today Pt discharged from [facility] on 03/29/22. Admitted for: Pain in arms and legs with elevated white count and urinary tract infection Admitted to [facility] 03/23-03/26 and 03/26-03/29 (pain worsened and [...] BY MOUTH ONCE DAILY blood sugar diagnostic (ViadeoTOUCH ULTRA BLUE TEST STRIP) test strip USE [...] Augustin Migdalia Cramer MD documented in this encounterLuther[facility] Hospital06-14-2022 History of Present illness Narrative* Katia [...] in patient's care. Summary: Pt discharged from [facility] on 03/29/22. Admitted for: Pain in arms and legs with elevated white count and urinary tract infection Concerns: No concerns at this time. [employer] plan for next outreach: No further follow up needed at this time. TCM outreach complete. Signature Katia Farooq RN April 27, 2022 documented in this encounterLuther[facility] Hospital06-14-2022 Evaluation note* Diagnosis Hypertensive kidney disease with stage 3 chronic kidney disease, unspecified whether stage 3a or 3b CKD (HCC)- Primary documented in this encounter [facility]13[facility] Miscellaneous Notes* Telephone Encounter - Cheryl Anders RN - 04/26/2022 5:04 PM EDT Contacted Caregiver Demetria, states pt is not uncomfortable but has not had a bowel movement in 4 days. Demetira states pt takes fiber daily Advised per [...] 4:28 PM EDT Call placed to pt's certified nurses' aide, Demetria. Informed her of the 2 blood work orders to have completed, & that pt can give urine sample at [facility] when she goes for lab draw. Demetria also confirmed that they Did pick up man IFOBT but pt Having trouble going to [...] Juanis Tamayo PA-C * Telephone Encounter - [facility] - 04/26/2022 9:37 AM EDT Patient caregiver Demetria calling to ask about the lab order in patient chart regarding the follow up urine. She states patient received a bottle for her to hand carry her urine, is that correct? Or is it to be done when [facility] the [facility]? And exactly [facility] Demetria states when patient came in for labs she was told there were no orders and she does not want that to happen again. Call caregiver Demetria to discuss at [phone] documented in this encounterLuther[facility] Hospital05-26-2022 Miscellaneous Notes* Telephone Encounter - Sandrita Christianson LPN - 04/08/2022 1:25 PM EDT Pt's POA/certified nurses' aide Demetria notified & had no questions/concerns. * Telephone Encounter - Willie Kaur APRN.CNP - 04/08/2022 11:47 AM EDT Please notify patient that Cologuard has been ordered and Cologuard [employer] will reach out [facility] mailing address. Willie Kaur APRN.DRAKE * Telephone Encounter - Yeimy Jagdish - 04/08/2022 10:37 AM EDT Patient's certified nurses' aide, Demetria is calling requesting the Cologuard kit. She is asking for the kit or prescription for the kit. Please return call at [phone] documented in this encounterLutheran Hospital05-21-2022 Instructions* Patient Instructions* Migdalia Cramer MD [...] of March. Consider colonoscopy. documented in this encounterLutheran Hospital05-21-2022 History of Present illness Narrative* Migdalia [...] review completed Yes SUMMARY: Pt discharged from [facility] on 03/29/22. Admitted for: Pain in arms and legs with elevated white count and urinary tract infection Admitted to [facility] 03/23-03/26 and 03/26-03/29 (pain worsened and [...] of the right femoral acetabular joint with [id number] contact, subchondral sclerosis and marginal osteophytosis. Left [...] 04/03/2022 8:06 AM EDT documented in [facility] encounterL[facility]22 Miscellaneous Notes* Telephone Encounter - Willie [...] up Willie Kaur APRN.CNP documented in this encounterLuther[facility] Hospital05-17-[facility]22 Miscellaneous Notes* Telephone Encounter - Willie Kaur APRN.CNP - 03/30/2022 10:53 AM EDT Noted and agree with OV Willie Kaur APRN.CNP * Telephone Encounter - Magnolia Johnson RN - 03/30/2022 10:17 AM EDT Spoke with patients date night caregiver Demetria. She had questions for the [...] pain (volearen gel and lidocaine patches) and date night caregiver is not sure how long she should be using those (advised for now to continue until follow up appointment) Offered several appointments this week but her date night caregiver Demetria is having trouble getting her [...] Assessment Questions Recently in the hospital. Pt date night caregiver wanted a follow up to discuss med changes and how to help with her pain more residential. Protocols used: INFORMATION ONLY CALL - NO [id number] * Telephone Encounter - ZANA Buck - 03/30/2022 9:16 AM EDT This morning Yusuf caregiver called with some concerns . She has had the patient in the ER two times in the last few days. She is experiencing all over painand would like more suggestions on how to help the patient . Please Advise Thanks documented in this encounterL[facility]22 History of Past illness Narrative* Problem [...] of this encounter (statuses as of 03/30/2022) [facility] Narrative* Problem [...] IV fluids, remains stable. Lumbosacral radiculitis 02/21/2015 01/24/20 18 Rotator cuff (capsule) sprain 08/06/2014 Cervicalgia [...] of this encounter (statuses as of 03/30/2022) [facility] illness Narrative* Problem [...] of this encounter (statuses as of 04/03/2022) [facility] Narrative* Problem [...] of this encounter (statuses as of 04/08/2022) [facility] Narrative* Problem [...] of this encounter (statuses as of 04/26/2022) [facility] Narrative* Problem [...] of this encounter (statuses as of 04/27/2022) [facility] Narrative* Problem [...] of this encounter (statuses as of 05/08/2022) [facility] Narrative* Problem [...] of this encounter (statuses as of 05/28/2022) [facility] Narrative* Problem [...] of this encounter (statuses as of 06/11/2022) [facility] Narrative* Problem [...] of this encounter (statuses as of 08/18/2022) [facility] Narrative* Problem [...] of this encounter (statuses as of 09/30/2022) [facility] Narrative* Problem [...] of this encounter (statuses as of 10/04/2022) [facility] Narrative* Problem [...] of this encounter (statuses as of 11/15/2022) [facility] Narrative* Problem [...] of this encounter (statuses as of 12/28/2022) [facility] Narrative* Problem [...] in outpatient setting. Appointment ordered (scheduled for 10/23/15 at 08:40am C25). -Greatly appreciate Serenity's recs [...] of this encounter (statuses as of 01/20/2023) [facility] Past illness Narrative* Problem [...] 11/23/2013 Osteoarthritis of ankle or foot, right 12/06/201 1 12/07/2017 Diabetes mellitus type 2, controlled, [...] of this encounter (statuses as of 02/22/2023) [facility] Miscellaneous Notes* Telephone Encounter - Willie Mitsch, ENVIRONMENT COORDINATOR.DETENTION SERGEANT - 03/25/2022 11:55 AM EDT The following [...] Please advise. Aditi Perez documented in this encounterLutheran Hospital05-09-2022 Miscellaneous Notes* Telephone Encounter - Willie [...] and advise. Sangita Herring documented in this encounterLutheran Hospital04-15-2022 Miscellaneous Notes* Telephone Encounter - Agustina [...] KAUR APRN.DRAKE * Telephone Encounter - Tyesha Lipscomb Pss - 02/25/2022 3:33 PM EDT Patient's caregiver, Mercedes, stated she tried to refill patient's meloxicam, but [facility] told her itwas discontinued. Epic shows as discontinued. Please review and advise at [phone]. documented in this encounterLutheran Hospital02-22-2022 Miscellaneous Notes* Telephone Encounter - Lucinda [...] a 30 day supply sent to the [facility] of the [facility] RX INSTRUCTIONS: Patient requesting a call when RX is approved and sent to the pharmacy. Please call patient's certified nurses' aide at [phone] Daniel Holder documented in this encounterLutheran Hospital01-24-2022 NoteHome care referral received for patient. Attempted to reach via telephone, however no answer. Voicemail left for return call. [facility]01-21-2022 [facility] CONSULTATION [place]ELL YUSUF CCE [phone] ICU [place]IGHAT [place] [id number] REFERRING PHYSICIAN: CONSULTING PHYSICIAN: Gertrudis Beckford DO DATE OF CONSULTATION: 12/04/2021 CHIEF COMPLAINT: Status post fall. HISTORY OF PRESENT ILLNESS: This 85-year-old Brazilian woman was taking care of her 16 [...] 2 diabetes. SOCIAL HISTORY: Patient immigrated from [facility] with her by way of 10 [...] DO GH/MedQ Job #: (more content not included)...[facility]01-21-2022 Note Patient: YUSUF MEDINA Age: [...] the report, she had gone to the [employer] to pick up man eggs. She had fallen. It is unknown [...] levels of other ser (more content not included)...[facility]01-20-2022 NotePatient: YUSUF MEDINA Age: 85 [...] hypothermia Plan: warm, CT eval [facility]08-31-2021 History of Present illness Narrative* Giovanny Salmon [...] 14, 2021 9:01 AM documented in this encounterLuther[facility] Hospital07-12-2017 History of Past illness Narrative* Problem [...] of this encounter (statuses as of 02/18/2022) [facility] Narrative* Problem [...] of this encounter (statuses as of 02/26/2022) [facility] Narrative* Problem [...] of this encounter (statuses as of 03/22/2022) [facility] Narrative* Problem [...] of this encounter (statuses as of 03/25/2022) [facility] Diagnosis Type 2 diabetes mellitus with stage 3 chronic kidney disease, without long-term current use of insulin (HCC) DDD (degenerative disc disease), cervical Degeneration of cervical intervertebral disc documented in this encounter [facility]* Diagnosis DDD (degenerative disc disease), cervical Degeneration of cervical intervertebral disc [facility] encounter [facility]* Diagnosis Essential hypertension Unspecified essential hypertension [facility] this encounter [facility]* Diagnosis [...] not elsewhere classified documented in this encounter [facility]* Diagnosis Screening for colon cancer- Primary Special screening for malignant neoplasms, colon [facility] Diagnosis Iron deficiency anemia, unspecified iron deficiency anemia type- Primary documented in this encounter [facility]* Diagnosis [...] kidney disease (HCC) documented in this encounter [facility]* Diagnosis Gastroesophageal reflux disease without esophagitis Esophageal reflux documented in this encounter [facility]* Diagnosis Type 2 diabetes mellitus with stage 3 chronic kidney disease, without long-term current use of insulin (HCC) documented in this encounter [facility]* Diagnosis [...] diabetes mellitus (HCC) [facility]* Diagnosis Diabetes mellitus, non-insulin dependent (NIDDM or type II) (HCC)- Primary documented [facility] this encounter [facility]* Diagnosis Essential hypertension Unspecified essential hypertension [facility] this encounter [facility]* Diagnosis Pain in both hands- Primary Pain in both wrists Pain in joint, forearm Leukocytosis, unspecified type Type 2 diabetes mellitus with stage 3 chronic kidney disease, without long-term current use of insulin, unspecified whether stage 3a or 3b CKD (HCC) Muscular deconditioning Muscular wasting and disuse atrophy, not elsewhere classified [facility]* Diagnosis Diabetes mellitus, non-insulin dependent (NIDDM or type II) (HCC)- Primary Essential hypertension Unspecified essential hypertension CKD stage 3 due to type 2 diabetes mellitus (HCC) [facility]* Diagnosis Diabetes mellitus, non-insulin dependent (NIDDM or type II) (HCC)- Primary CKD stage 3 due to type 2 diabetes mellitus (HCC) [facility]* Diagnosis Diabetes mellitus, non-insulin dependent (NIDDM or type II) (HCC) documented in this encounter [facility] note* Diagnosis Diabetes mellitus, non-insulin dependent (NIDDM or type II) (HCC) [facility]* Diagnosis Gastroesophageal reflux disease without esophagitis Esophageal reflux documented in this encounter [facility] note* Diagnosis Diabetes mellitus, non-insulin dependent (NIDDM or type II) (HCC)- Primary documented in this encounter [facility] note* Diagnosis Diabetes mellitus, non-insulin dependent (NIDDM or type II) (HCC) [facility]* Diagnosis Essential hypertension Unspecified essential hypertension [facility]* Diagnosis Essential hypertension Unspecified essential hypertension documented in this encounter [facility] note* Diagnosis Gastroesophageal reflux disease without esophagitis Esophageal reflux [facility]* Diagnosis Diabetes mellitus, non-insulin dependent (NIDDM or type II) (HCC)- Primary Hyperlipidemia associated with type 2 diabetes mellitus (HCC) (HCC) Essential hypertension Unspecified essential hypertension documented in this encounter [facility] note* Diagnosis Type 2 diabetes mellitus without retinopathy (HCC)- Primary Type II or unspecified type diabetes mellitus without mention of complication, not stated as uncontrolled Pseudophakia Lens replaced by other means documented in this encounter [facility] note* Diagnosis Type 2 diabetes mellitus with stage 3 chronic kidney disease, without long-term current use of insulin (HCC) [facility]* Diagnosis Diabetes mellitus, non-insulin dependent (NIDDM or type II) (HCC) [facility]* Diagnosis [...] deficiency anemia type documented [facility] this encounter [facility]* Diagnosis Essential hypertension Unspecified essential hypertension [facility]* Diagnosis Generalized weakness- Primary Other malaise and fatigue Headache, unspecified headache type Leukocytosis, unspecified type CKD stage 3 due to type 2 diabetes mellitus (HCC) Normocytic anemia Anemia, unspecified Essential hypertension Unspecified essential hypertension Insomnia Insomnia, unspecified Arthralgia, unspecified joint [facility]* Diagnosis Pain Generalized pain [facility]* Diagnosis Leukocytosis, unspecified type- Primary documented in this encounter [facility]* Diagnosis Right ankle swelling Effusion of ankle and foot joint [facility] this encounter [facility]* Diagnosis Right ankle swelling- Primary Effusion of ankle and foot joint Closed nondisplaced fracture of right calcaneus, unspecified portion of calcaneus, initial encounter [facility]* Diagnosis Right ankle swelling Effusion of ankle and foot joint [facility]* Diagnosis Pain in joint involving right ankle and foot [facility] Diagnosis Right ankle swelling Effusion of ankle and foot joint Closed nondisplaced fracture of right calcaneus, unspecified portion of calcaneus, initial encounter [facility]* Diagnosis Leukocytosis, unspecified type- Primary Normocytic anemia Anemia, unspecified Right ankle swelling Effusion of ankle and foot joint Right ankle swelling Effusion of ankle and foot joint Right ankle swelling Effusion of ankle and foot joint [facility]* [...] Leukocytosis, unspecified type [facility]* Diagnosis Right ankle swelling- Primary Effusion of ankle and foot joint Chronic pain of right ankle [facility]* Diagnosis Right ankle swelling Effusion of ankle and foot joint [facility]* Diagnosis Chronic pain of right ankle- Primary [facility]* Diagnosis Normocytic anemia- Primary Anemia, unspecified Leukocytosis, unspecified type [facility]* Diagnosis Chronic pain of right ankle [facility]* Diagnosis Essential hypertension Unspecified essential hypertension documented in this encounter [facility] note* Diagnosis 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)- Primary Ulcer of ankle [facility] encounter [facility]* Diagnosis Pseudogout- Primary Other disorder of calcium metabolism Ankle swelling, right Medication monitoring encounter Encounter for therapeutic drug monitoring documented in this encounter [facility] note* Diagnosis Non-pressure chronic ulcer of right [...] kidney disease (HCC) documented [facility] this encounter [facility]* Diagnosis Pressure injury of right ankle, stage 3 (HCC)- Primary [facility]* Diagnosis Hyperlipidemia with target LDL less than 100 Other and unspecified hyperlipidemia documented in this encounter [facility] note* Diagnosis Leukocytosis, unspecified type- Primary Normocytic anemia Anemia, unspecified Vitamin B6 deficiency Cellulitis of right ankle documented in this encounter [facility] noteNo assessment information availableWShelby Memorial Hospital Work Phone: Evaluation note* Diagnosis 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)- Primary Ulcer of ankle documented in this encounter [facility] for referral (narrative)* Diagnostic Procedure Only (Routine) - Closed Specialty Diagnoses / Procedures Referred By Contac t Referred To Contact XR IMAGING Diagnoses Pain Procedures XR SHOULDER GENERAL 3V OR MORE AP/TRUE AP/OTHER LT X-RAY SHOULDER COMPLET [place] 2 [place] [address] [address] [phone] [place] [address] Referral ID Status Reason Start Date Expiration Date V isits Requested Visits Authorized [id number] Closed Auto-Generate d Referral 07/09/2021 08/08/2022 1 1 [facility] for referral (narrative)* Diagnostic Procedure Only (Routine) - Closed Specialty Diagnoses / Procedures Referred By Contac t Referred To Contact XR IMAGING Diagnoses Right ankle swelling Procedures XR ANKLE GENERAL 3V AP/LAT/OBL RIGHT RADEX ANKLE COMPLETE MINIMUM 3 [place] [address] [place] [address] [place] [address] Referral ID Status Reason Start Date Expiration Date V isits Requested Visits Authorized [id number] Closed Auto-Generate d Referral 09/17/2024 10/17/2025 1 1 [facility] for referral (narrative)* Diagnostic Procedure Only (Urgent) - Closed Specialty Diagnoses / Procedures Referred By Contac t Referred To Contact US IMAGING Diagnoses Right ankle swelling Procedures US DVT LOWER RIGHT DUP-SCAN XTR VEINS UNILATERAL/[place] [address] [place] [address] [place] [address] Referral ID Status Reason Start Date Expiration Date V isits Requested Visits Authorized [id number] Closed Auto-Generate d Referral 09/18/2024 10/17/2025 1 1 [facility] for referral (narrative)* Diagnostic Procedure Only (Routine) - Closed Specialty Diagnoses / Procedures Referred By Contac t Referred To Contact XR IMAGING Diagnoses Right ankle swelling Procedures XR ANKLE GENERAL 3V AP/LAT/OBL RIGHT RADEX ANKLE COMPLETE MINIMUM 3 [place] [address] [phone] [place] [address] Referral ID Status Reason Start Date Expiration Date V isits Requested Visits Authorized [id number] Closed Auto-Generate d Referral 09/17/2024 10/17/2025 1 1 * Diagnostic Procedure Only (Urgent) - Closed Specialty Diagnoses / Procedures Referred By Alisa leavitt Referred To Contact US IMAGING Diagnoses Right ankle swelling Procedures US DVT LOWER RIGHT DUP-SCAN XTR VEINS UNILATERAL/[place] [address] [place] [address] [place] [address] Referral ID Status Reason Start Date Expiration Date V isits Requested Visits Authorized [id number] Closed Auto-Generate d Referral 09/18/2024 10/17/2025 1 1 [facility] (narrative)No reason for referral information availableWShelby Memorial Hospital Work Phone: Reason for visit Narrative* Diagnostic Procedure Only (Routine) - Closed Specialty Diagnoses / Procedures Referred By Alisa leavitt Referred To Contact XR IMAGING Diagnoses Pain in joint involving right ankle and foot Procedures XR CALCANEUS 2V AXIAL/LAT RIGHT RADEX CALCANEUS MINIMUM 2 VIEWS Simone Kevin MD [address] [phone] [place] [address] Referral ID Status Reason Start Date Expiration Date V isits Requested Visits Authorized [id number] Closed Auto-Generate d Referral 09/19/2024 10/19/2025 1 1 [facility] Purpose Family History No Family History Records FoundNo Family History Records FoundNo Family History Records FoundNo Family History Records Found Advance Directives No Advanced Directives Records FoundDocuments on File Type Date Recorded Patient District Manager Postal Service Expl anation Advance Directive(s) 2024 10:00 AM [...] Documents on File Type Date Recorded Patient District Manager Postal Service Expl anation Advance Directive(s) 08/28/2015 9:03 PM Date Activated Date Inactivated Comments 03/07/2023 4:44 AM 03/09/2023 7:53 PM Date Activated Date Inactivated Comments 03/24/2022 3:23 PM 03/26/2022 7:51 PM Latest Code Status on File Code Status Date Activated Date Inactivated Comments Full Code 03/24/2022 3:23 PM 03/26/2022 7:51 PM Full Code Order Discussed With: Patient Documents on File Type Date Recorded Patient District Manager Postal Service Expl anation Advance Directive(s) Advance Directive(s) 05/19/2020 10:04 PM Advance Directive(s) 03/11/2017 1:34 PM Advance Directive(s) 12/10/2016 5:24 PM Advance Directive(s) 04/17/2016 11:22 AM Advance Directive(s) 08/28/2015 9:03 PM Documents on File Type Date Recorded Patient District Manager Postal Service Expl anation Advance Directive(s) Advance Directive(s) 03/23/2022 11:09 PM Advance Directive(s) 05/19/2020 10:04 PM Advance Directive(s) 03/11/2017 1:34 PM Advance Directive(s) 12/10/2016 5:24 PM Advance Directive(s) 04/17/2016 11:22 AM Advance Directive(s) 08/28/2015 9:03 PM Latest Code Status on File Code Status Date Activated Date Inactivated Comments Full Code 03/24/2022 3:23 PM Documents on File Type Date Recorded Patient District Manager Postal Service Expl anation Advance Directive(s) Advance Directive(s) 03/27/2022 12:20 AM Advance Directive(s) 03/23/2022 11:09 PM Advance Directive(s) 05/19/2020 10:04 PM Advance Directive(s) 03/11/2017 1:34 PM Advance Directive(s) 12/10/2016 5:24 PM Advance Directive(s) 04/17/2016 11:22 AM Advance Directive(s) 08/28/2015 9:03 PM Documents on File Type Date Recorded Patient District Manager Postal Service Expl anation Advance Directive(s) 08/28/2015 9:03 PM [...] diabetic retinopathy Procedures CONSULT TO OPHTHALMOLOGY OFFICE/OUTPATIENT [facility] MDM 60-[place] [address] [place] [address] Referral ID Status Reason Start Date Expiration Date Visits Requested Visits Authorized [id number] Pending Review PCP Requested Referral 10/23/2023 1 1 Specialty Diagnoses / Procedures Referred By Contac t Referred To Contact [facility] Diagnoses Muscular deconditioning Procedures CONSULT TO PHYSICAL THERAPY PHYSICAL THERAPY EVALUATION HIGH COMPLEX 45 MINS [facility] FacilityWillie hatch, ENVIRONMENT COORDINATOR.DETENTION SERGEANT [address] [place] [id number] [facility] [address] [address] Referral ID Status Reason Start Date Expiration Date Visits Requested Visits Authorized [id number] Pending Review Auto-Generat ed Referral 03/17/2023 03/16/2024 1 1 Specialty Diagnoses / Procedures Referred By Contac t Referred To Contact [facility] Diagnoses Pain in both hands Pain in both wrists Procedures CONSULT TO MANAGER ASSURANCE OCCUPATIONAL THERAPY EVAL HIGH COMPLEX 60 MINS Willie Kaur, ENVIRONMENT COORDINATOR.DETENTION SERGEANT [address] [place] [id number] [facility] [address] [address] Referral ID Status Reason Start Date Expiration Date Visits Requested Visits Authorized [id number] Pending Review Auto-Generat ed Referral 03/17/2023 03/16/2024 1 1 Specialty Diagnoses / Procedures Referred By Contac t Referred To Contact Diagnoses Leukocytosis, unspecified type Procedures CONSULT TO HEMATOLOGY/ONCOLOGY OFFICE/OUTPATIENT [facility] 60 [place] [address] [place] [address] Referral ID Status Reason Start Date Expiration Date Visits Requested Visits Authorized [id number] Authorized PCP Requested Referral 4 09/04/2025 1 1 Specialty Diagnoses / Procedures Referred By Contac t Referred To Contact Orthopedics Diagnoses Right ankle swelling Closed nondisplaced fracture of right calcaneus, unspecified portion of calcaneus, initial encounter Procedures CONSULT PANEL TO ORTHOPAEDICS OFFICE/OUTPATIENT [facility] [address] [place] [address] [place] [address] Referral ID Status Reason Start Date Expiration Date Visits Requested Visits Authorized [id number] Authorized PCP Requested Referral 09/18/2024 09/18/2025 1 1 Specialty Diagnoses / Procedures Referred By Contac t Referred To Contact MR IMAGING Diagnoses Chronic pain of right ankle Procedures MRI ANKLE WO IVCON RIGHT MRI ANY JT LOWER EXTREM W/O CONTRAST MATRL Simone Kevin MD [address] [place] [address] Mr Imaging [place] [address] Referral ID Status Reason Start Date Expiration Date Visits Requested Visits Authorized [id number] Authorized Auto-Generat ed Referral 12/01/2025 1 1 Specialty Diagnoses / Procedures Referred By Contac t Referred To Contact XR IMAGING Diagnoses Right ankle swelling Procedures XR FOOT GENERAL 3V AP/LAT/OBL RIGHT RADEX FOOT COMPLETE MINIMUM 3 VIEWS Simone Kevin MD [address] [place] [id number] Xr Imaging [place] [address] Referral ID Status Reason Start Date Expiration Date V isits Requested Visits Authorized [id number] Closed Auto-Generate d Referral 11/01/2024 12/01/2025 1 1 Specialty Diagnoses / Procedures Referred By Contac t Referred To Contact XR IMAGING Diagnoses Right ankle swelling Procedures XR ANKLE GENERAL 3V AP/LAT/OBL RIGHT RADEX ANKLE COMPLETE MINIMUM 3 VIEWS Simone Kevin MD [address] [place] [address] Xr Imaging [place] [address] Referral ID Status Reason Start Date Expiration Date V isits Requested Visits Authorized [id number] Closed Auto-Generate d Referral 11/01/2024 12/01/2025 1 1 Referral ID Status Reason Start Date Expiration Date V isits Requested Visits Authorized [id number] Closed Auto-Generate d Referral 11/01/2024 12/01/2025 1 1 Chief Complaint and Reason for Visit Chief Complaint Admit Date LAB WORK December 17, 2024 4 :00am LAB WORK December 24, 2024 4:00am LABWORK 2024 5:00am LABWORK January 07, 2025 5:00am CORRECTION LAB WORK January 15, 2025 5: 00am Chief Complaint Admit Date LAB WORK December 17, 2024 4 :00am LAB WORK December 24, 2024 4:00am LABWORK 2024 5:00am LABWORK January 07, 2025 5:00am CORRECTION LAB WORK January 15, 2025 5: 00am CORRECTION LAB WORK February 04, 2025 5 :00am Chief Complaint Admit Date LAB WORK December 17, 2024 4 :00am LAB WORK December 24, 2024 4:00am LABWORK 2024 5:00am LABWORK January 07, 2025 5:00am CORRECTION LAB WORK January 15, 2025 5: 00am CORRECTION LAB WORK February 04, 2025 5 :00am CORRECTION LAB WORK March 04, 2025 5 :00am Chief Complaint Admit Date LAB WORK December 24, 2024 4:00am LABWORK 2024 5:00am LABWORK January 07, 2025 5:00am CORRECTION LAB WORK January 15, 2025 5: 00am CORRECTION LAB WORK February 04, 2025 5 :00am CORRECTION LAB WORK March 04, 2025 5 :00am CORRECTION LAB WORK March 12, 2025 4 :00am LABWORK April 01, 2025 5:00a m Chief Complaint Admit Date LAB WORK December 24, 2024 4:00am LABWORK 2024 5:00am LABWORK January 07, 2025 5:00am CORRECTION LAB WORK January 15, 2025 5: 00am CORRECTION LAB WORK February 04, 2025 5 :00am CORRECTION LAB WORK March 04, 2025 5 :00am CORRECTION LAB WORK March 12, 2025 4 :00am Additional Source Comments INFORMATION SOURCE (unrecogn ized section and content) DATE CREATED AUTHOR 12/10/2021 [facility] DATE CREATED AUTHOR AUTHOR'S ORGANIZ ATION 02/16/2025 [facility] DATE CREATED AUTHOR AUTHOR'S ORGANIZ ATION 06/01/2025 [facility] DATE CREATED AUTHOR AUTHOR'S ORGANIZ ATION 06/21/2025 [facility] Source Comments (unrecognize d section and content) In the event this informatio n is protected by the Federal Confidentiality of Alcohol and Drug Abuse Patient Records regulations: The Federal rules restrict any use of the information to criminally investigate or prosecute any alcohol or drug abuse patient.[facility] the event this information is protected by the Federal Confidentiality of Alcohol and Drug Abuse Patient Records regulations: The Federal rules restrict any use of the information to criminally investigate or prosecute any alcohol or drug abuse patient.[facility] HospitalIn the event this information is protected by the Federal Confidentiality of Alcohol and Drug Abuse Patient Records regulations: The Federal rules restrict any use of the information to criminally investigate or prosecute any alcohol or drug abuse patient.[facility] HospitalIn the event this information is protected by the Federal Confidentiality of Alcohol and Drug Abuse Patient Records regulations: The Federal rules restrict any use of the information to criminally investigate or prosecute any alcohol or drug abuse patient.[facility] HospitalIn the event this information is protected by the Federal Confidentiality of Alcohol and Drug Abuse Patient Records regulations: The Federal rules restrict any use of the information to criminally investigate or prosecute any alcohol or drug abuse patient.[facility] HospitalIn the event this information is protected by the Federal Confidentiality of Alcohol and Drug Abuse Patient Records regulations: The Federal rules restrict any use of the information to criminally investigate or prosecute any alcohol or drug abuse patient.[facility] HospitalIn the event this information is protected by the Federal Confidentiality of Alcohol and Drug Abuse Patient Records regulations: The Federal rules restrict any use of the information to criminally investigate or prosecute any alcohol or drug abuse patient.[facility] HospitalIn the event this information is protected by the Federal Confidentiality of Alcohol and Drug Abuse Patient Records regulations: The Federal rules restrict any use of the information to criminally investigate or prosecute any alcohol or drug abuse patient.[facility] HospitalIn the event this information is protected by the Federal Confidentiality of Alcohol and Drug Abuse Patient Records regulations: The Federal rules restrict any use of the information to criminally investigate or prosecute any alcohol or drug abuse patient.[facility] HospitalIn the event this information is protected by the Federal Confidentiality of Alcohol and Drug Abuse Patient Records regulations: The Federal rules restrict any use of the information to criminally investigate or prosecute any alcohol or drug abuse patient.[facility] HospitalIn the event this information is protected by the Federal Confidentiality of Alcohol and Drug Abuse Patient Records regulations: The Federal rules restrict any use of the information to criminally investigate or prosecute any alcohol or drug abuse patient.[facility] HospitalIn the event this information is protected by the Federal Confidentiality of Alcohol and Drug Abuse Patient Records regulations: The Federal rules restrict any use of the information to criminally investigate or prosecute any alcohol or drug abuse patient.[facility] HospitalIn the event this information is protected by the Federal Confidentiality of Alcohol and Drug Abuse Patient Records regulations: The Federal rules restrict any use of the information to criminally investigate or prosecute any alcohol or drug abuse patient.[facility] HospitalIn the event this information is protected by the Federal Confidentiality of Alcohol and Drug Abuse Patient Records regulations: The Federal rules restrict any use of the information to criminally investigate or prosecute any alcohol or drug abuse patient.[facility] HospitalIn the event this information is protected by the Federal Confidentiality of Alcohol and Drug Abuse Patient Records regulations: The Federal rules restrict any use of the information to criminally investigate or prosecute any alcohol or drug abuse patient.[facility] HospitalIn the event this information is protected by the Federal Confidentiality of Alcohol and Drug Abuse Patient Records regulations: The Federal rules restrict any use of the information to criminally investigate or prosecute any alcohol or drug abuse patient.[facility] HospitalIn the event this information is protected by the Federal Confidentiality of Alcohol and Drug Abuse Patient Records regulations: The Federal rules restrict any use of the information to criminally investigate or prosecute any alcohol or drug abuse patient.[facility] HospitalIn the event this information is protected by the Federal Confidentiality of Alcohol and Drug Abuse Patient Records regulations: The Federal rules restrict any use of the information to criminally investigate or prosecute any alcohol or drug abuse patient.[facility] HospitalIn the event this information is protected by the Federal Confidentiality of Alcohol and Drug Abuse Patient Records regulations: The Federal rules restrict any use of the information to criminally investigate or prosecute any alcohol or drug abuse patient.[facility] HospitalIn the event this information is protected by the Federal Confidentiality of Alcohol and Drug Abuse Patient Records regulations: The Federal rules restrict any use of the information to criminally investigate or prosecute any alcohol or drug abuse patient.[facility] HospitalIn the event this information is protected by the Federal Confidentiality of Alcohol and Drug Abuse Patient Records regulations: The Federal rules restrict any use of the information to criminally investigate or prosecute any alcohol or drug abuse patient.[facility] HospitalIn the event this information is protected by the Federal Confidentiality of Alcohol and Drug Abuse Patient Records regulations: The Federal rules restrict any use of the information to criminally investigate or prosecute any alcohol or drug abuse patient.[facility] HospitalIn the event this information is protected by the Federal Confidentiality of Alcohol and Drug Abuse Patient Records regulations: The Federal rules restrict any use of the information to criminally investigate or prosecute any alcohol or drug abuse patient.[facility] HospitalIn the event this information is protected by the Federal Confidentiality of Alcohol and Drug Abuse Patient Records regulations: The Federal rules restrict any use of the information to criminally investigate or prosecute any alcohol or drug abuse patient.[facility] HospitalIn the event this information is protected by the Federal Confidentiality of Alcohol and Drug Abuse Patient Records regulations: The Federal rules restrict any use of the information to criminally investigate or prosecute any alcohol or drug abuse patient.[facility] HospitalIn the event this information is protected by the Federal Confidentiality of Alcohol and Drug Abuse Patient Records regulations: The Federal rules restrict any use of the information to criminally investigate or prosecute any alcohol or drug abuse patient.[facility] HospitalIn the event this information is protected by the Federal Confidentiality of Alcohol and Drug Abuse Patient Records regulations: The Federal rules restrict any use of the information to criminally investigate or prosecute any alcohol or drug abuse patient.[facility] HospitalIn the event this information is protected by the Federal Confidentiality of Alcohol and Drug Abuse Patient Records regulations: The Federal rules restrict any use of the information to criminally investigate or prosecute any alcohol or drug abuse patient.[facility] HospitalIn the event this information is protected by the Federal Confidentiality of Alcohol and Drug Abuse Patient Records regulations: The Federal rules restrict any use of the information to criminally investigate or prosecute any alcohol or drug abuse patient.[facility] HospitalIn the event this information is protected by the Federal Confidentiality of Alcohol and Drug Abuse Patient Records regulations: The Federal rules restrict any use of the information to criminally investigate or prosecute any alcohol or drug abuse patient.[facility] HospitalIn the event this information is protected by the Federal Confidentiality of Alcohol and Drug Abuse Patient Records regulations: The Federal rules restrict any use of the information to criminally investigate or prosecute any alcohol or drug abuse patient.[facility] HospitalIn the event this information is protected by the Federal Confidentiality of Alcohol and Drug Abuse Patient Records regulations: The Federal rules restrict any use of the information to criminally investigate or prosecute any alcohol or drug abuse patient.[facility] HospitalIn the event this information is protected by the Federal Confidentiality of Alcohol and Drug Abuse Patient Records regulations: The Federal rules restrict any use of the information to criminally investigate or prosecute any alcohol or drug abuse patient.[facility] HospitalIn the event this information is protected by the Federal Confidentiality of Alcohol and Drug Abuse Patient Records regulations: The Federal rules restrict any use of the information to criminally investigate or prosecute any alcohol or drug abuse patient.[facility] HospitalIn the event this information is protected by the Federal Confidentiality of Alcohol and Drug Abuse Patient Records regulations: The Federal rules restrict any use of the information to criminally investigate or prosecute any alcohol or drug abuse patient.[facility] HospitalIn the event this information is protected by the Federal Confidentiality of Alcohol and Drug Abuse Patient Records regulations: The Federal rules restrict any use of the information to criminally investigate or prosecute any alcohol or drug abuse patient.[facility] HospitalIn the event this information is protected by the Federal Confidentiality of Alcohol and Drug Abuse Patient Records regulations: The Federal rules restrict any use of the information to criminally investigate or prosecute any alcohol or drug abuse patient.[facility] HospitalIn the event this information is protected by the Federal Confidentiality of Alcohol and Drug Abuse Patient Records regulations: The Federal rules restrict any use of the information to criminally investigate or prosecute any alcohol or drug abuse patient.[facility] HospitalIn the event this information is protected by the Federal Confidentiality of Alcohol and Drug Abuse Patient Records regulations: The Federal rules restrict any use of the information to criminally investigate or prosecute any alcohol or drug abuse patient.[facility] HospitalIn the event this information is protected by the Federal Confidentiality of Alcohol and Drug Abuse Patient Records regulations: The Federal rules restrict any use of the information to criminally investigate or prosecute any alcohol or drug abuse patient.[facility] HospitalIn the event this information is protected by the Federal Confidentiality of Alcohol and Drug Abuse Patient Records regulations: The Federal rules restrict any use of the information to criminally investigate or prosecute any alcohol or drug abuse patient.[facility] HospitalIn the event this information is protected by the Federal Confidentiality of Alcohol and Drug Abuse Patient Records regulations: The Federal rules restrict any use of the information to criminally investigate or prosecute any alcohol or drug abuse patient.[facility] HospitalIn the event this information is protected by the Federal Confidentiality of Alcohol and Drug Abuse Patient Records regulations: The Federal rules restrict any use of the information to criminally investigate or prosecute any alcohol or drug abuse patient.[facility] HospitalIn the event this information is protected by the Federal Confidentiality of Alcohol and Drug Abuse Patient Records regulations: The Federal rules restrict any use of the information to criminally investigate or prosecute any alcohol or drug abuse patient.[facility] HospitalIn the event this information is protected by the Federal Confidentiality of Alcohol and Drug Abuse Patient Records regulations: The Federal rules restrict any use of the information to criminally investigate or prosecute any alcohol or drug abuse patient.[facility] HospitalIn the event this information is protected by the Federal Confidentiality of Alcohol and Drug Abuse Patient Records regulations: The Federal rules restrict any use of the information to criminally investigate or prosecute any alcohol or drug abuse patient.[facility] HospitalIn the event this information is protected by the Federal Confidentiality of Alcohol and Drug Abuse Patient Records regulations: The Federal rules restrict any use of the information to criminally investigate or prosecute any alcohol or drug abuse patient.[facility] HospitalIn the event this information is protected by the Federal Confidentiality of Alcohol and Drug Abuse Patient Records regulations: The Federal rules restrict any use of the information to criminally investigate or prosecute any alcohol or drug abuse patient.[facility] HospitalIn the event this information is protected by the Federal Confidentiality of Alcohol and Drug Abuse Patient Records regulations: The Federal rules restrict any use of the information to criminally investigate or prosecute any alcohol or drug abuse patient.[facility] HospitalIn the event this information is protected by the Federal Confidentiality of Alcohol and Drug Abuse Patient Records regulations: The Federal rules restrict any use of the information to criminally investigate or prosecute any alcohol or drug abuse patient.[facility] HospitalIn the event this information is protected by the Federal Confidentiality of Alcohol and Drug Abuse Patient Records regulations: The Federal rules restrict any use of the information to criminally investigate or prosecute any alcohol or drug abuse patient.[facility] HospitalIn the event this information is protected by the Federal Confidentiality of Alcohol and Drug Abuse Patient Records regulations: The Federal rules restrict any use of the information to criminally investigate or prosecute any alcohol or drug abuse patient.[facility] HospitalIn the event this information is protected by the Federal Confidentiality of Alcohol and Drug Abuse Patient Records regulations: The Federal rules restrict any use of the information to criminally investigate or prosecute any alcohol or drug abuse patient.[facility] HospitalIn the event this information is protected by the Federal Confidentiality of Alcohol and Drug Abuse Patient Records regulations: The Federal rules restrict any use of the information to criminally investigate or prosecute any alcohol or drug abuse patient.[facility] HospitalIn the event this information is protected by the Federal Confidentiality of Alcohol and Drug Abuse Patient Records regulations: The Federal rules restrict any use of the information to criminally investigate or prosecute any alcohol or drug abuse patient.[facility] HospitalIn the event this information is protected by the Federal Confidentiality of Alcohol and Drug Abuse Patient Records regulations: The Federal rules restrict any use of the information to criminally investigate or prosecute any alcohol or drug abuse patient.[facility] HospitalIn the event this information is protected by the Federal Confidentiality of Alcohol and Drug Abuse Patient Records regulations: The Federal rules restrict any use of the information to criminally investigate or prosecute any alcohol or drug abuse patient.[facility] HospitalIn the event this information is protected by the Federal Confidentiality of Alcohol and Drug Abuse Patient Records regulations: The Federal rules restrict any use of the information to criminally investigate or prosecute any alcohol or drug abuse patient.[facility] HospitalIn the event this information is protected by the Federal Confidentiality of Alcohol and Drug Abuse Patient Records regulations: The Federal rules restrict any use of the information to criminally investigate or prosecute any alcohol or drug abuse patient.[facility] HospitalIn the event this information is protected by the Federal Confidentiality of Alcohol and Drug Abuse Patient Records regulations: The Federal rules restrict any use of the information to criminally investigate or prosecute any alcohol or drug abuse patient.[facility] HospitalIn the event this information is protected by the Federal Confidentiality of Alcohol and Drug Abuse Patient Records regulations: The Federal rules restrict any use of the information to criminally investigate or prosecute any alcohol or drug abuse patient.[facility] HospitalIn the event this information is protected by the Federal Confidentiality of Alcohol and Drug Abuse Patient Records regulations: The Federal rules restrict any use of the information to criminally investigate or prosecute any alcohol or drug abuse patient.[facility] HospitalIn the event this information is protected by the Federal Confidentiality of Alcohol and Drug Abuse Patient Records regulations: The Federal rules restrict any use of the information to criminally investigate or prosecute any alcohol or drug abuse patient.[facility] HospitalIn the event this information is protected by the Federal Confidentiality of Alcohol and Drug Abuse Patient Records regulations: The Federal rules restrict any use of the information to criminally investigate or prosecute any alcohol or drug abuse patient.[facility] HospitalIn the event this information is protected by the Federal Confidentiality of Alcohol and Drug Abuse Patient Records regulations: The Federal rules restrict any use of the information to criminally investigate or prosecute any alcohol or drug abuse patient.[facility] HospitalIn the event this information is protected by the Federal Confidentiality of Alcohol and Drug Abuse Patient Records regulations: The Federal rules restrict any use of the information to criminally investigate or prosecute any alcohol or drug abuse patient.[facility] HospitalIn the event this information is protected by the Federal Confidentiality of Alcohol and Drug Abuse Patient Records regulations: The Federal rules restrict any use of the information to criminally investigate or prosecute any alcohol or drug abuse patient.[facility] HospitalIn the event this information is protected by the Federal Confidentiality of Alcohol and Drug Abuse Patient Records regulations: The Federal rules restrict any use of the information to criminally investigate or prosecute any alcohol or drug abuse patient.[facility] HospitalIn the event this information is protected by the Federal Confidentiality of Alcohol and Drug Abuse Patient Records regulations: The Federal rules restrict any use of the information to criminally investigate or prosecute any alcohol or drug abuse patient.[facility] HospitalIn the event this information is protected by the Federal Confidentiality of Alcohol and Drug Abuse Patient Records regulations: The Federal rules restrict any use of the information to criminally investigate or prosecute any alcohol or drug abuse patient.[facility] HospitalIn the event this information is protected by the Federal Confidentiality of Alcohol and Drug Abuse Patient Records regulations: The Federal rules restrict any use of the information to criminally investigate or prosecute any alcohol or drug abuse patient.[facility] HospitalIn the event this information is protected by the Federal Confidentiality of Alcohol and Drug Abuse Patient Records regulations: The Federal rules restrict any use of the information to criminally investigate or prosecute any alcohol or drug abuse patient.[facility] HospitalIn the event this information is protected by the Federal Confidentiality of Alcohol and Drug Abuse Patient Records regulations: The Federal rules restrict any use of the information to criminally investigate or prosecute any alcohol or drug abuse patient.[facility] HospitalIn the event this information is protected by the Federal Confidentiality of Alcohol and Drug Abuse Patient Records regulations: The Federal rules restrict any use of the information to criminally investigate or prosecute any alcohol or drug abuse patient.[facility] HospitalIn the event this information is protected by the Federal Confidentiality of Alcohol and Drug Abuse Patient Records regulations: The Federal rules restrict any use of the information to criminally investigate or prosecute any alcohol or drug abuse patient.[facility] HospitalIn the event this information is protected by the Federal Confidentiality of Alcohol and Drug Abuse Patient Records regulations: The Federal rules restrict any use of the information to criminally investigate or prosecute any alcohol or drug abuse patient.[facility] HospitalIn the event this information is protected by the Federal Confidentiality of Alcohol and Drug Abuse Patient Records regulations: The Federal rules restrict any use of the information to criminally investigate or prosecute any alcohol or drug abuse patient.[facility] HospitalIn the event this information is protected by the Federal Confidentiality of Alcohol and Drug Abuse Patient Records regulations: The Federal rules restrict any use of the information to criminally investigate or prosecute any alcohol or drug abuse patient.[facility] HospitalIn the event this information is protected by the Federal Confidentiality of Alcohol and Drug Abuse Patient Records regulations: The Federal rules restrict any use of the information to criminally investigate or prosecute any alcohol or drug abuse patient.[facility] HospitalIn the event this information is protected by the Federal Confidentiality of Alcohol and Drug Abuse Patient Records regulations: The Federal rules restrict any use of the information to criminally investigate or prosecute any alcohol or drug abuse patient.[facility] HospitalIn the event this information is protected by the Federal Confidentiality of Alcohol and Drug Abuse Patient Records regulations: The Federal rules restrict any use of the information to criminally investigate or prosecute any alcohol or drug abuse patient.[facility] HospitalIn the event this information is protected by the Federal Confidentiality of Alcohol and Drug Abuse Patient Records regulations: The Federal rules restrict any use of the information to criminally investigate or prosecute any alcohol or drug abuse patient.[facility] HospitalIn the event this information is protected by the Federal Confidentiality of Alcohol and Drug Abuse Patient Records regulations: The Federal rules restrict any use of the information to criminally investigate or prosecute any alcohol or drug abuse patient.[facility] HospitalIn the event this information is protected by the Federal Confidentiality of Alcohol and Drug Abuse Patient Records regulations: The Federal rules restrict any use of the information to criminally investigate or prosecute any alcohol or drug abuse patient.[facility] HospitalIn the event this information is protected by the Federal Confidentiality of Alcohol and Drug Abuse Patient Records regulations: The Federal rules restrict any use of the information to criminally investigate or prosecute any alcohol or drug abuse patient.[facility] HospitalIn the event this information is protected by the Federal Confidentiality of Alcohol and Drug Abuse Patient Records regulations: The Federal rules restrict any use of the information to criminally investigate or prosecute any alcohol or drug abuse patient.[facility] HospitalIn the event this information is protected by the Federal Confidentiality of Alcohol and Drug Abuse Patient Records regulations: The Federal rules restrict any use of the information to criminally investigate or prosecute any alcohol or drug abuse patient.[facility] HospitalIn the event this information is protected by the Federal Confidentiality of Alcohol and Drug Abuse Patient Records regulations: The Federal rules restrict any use of the information to criminally investigate or prosecute any alcohol or drug abuse patient.[facility] HospitalIn the event this information is protected by the Federal Confidentiality of Alcohol and Drug Abuse Patient Records regulations: The Federal rules restrict any use of the information to criminally investigate or prosecute any alcohol or drug abuse patient.[facility] HospitalIn the event this information is protected by the Federal Confidentiality of Alcohol and Drug Abuse Patient Records regulations: The Federal rules restrict any use of the information to criminally investigate or prosecute any alcohol or drug abuse patient.[facility] HospitalIn the event this information is protected by the Federal Confidentiality of Alcohol and Drug Abuse Patient Records regulations: The Federal rules restrict any use of the information to criminally investigate or prosecute any alcohol or drug abuse patient.[facility] Reason for Visit (unrecogniz ed section [...] Date Comments Population Health Navigation Outreach 03/13/2024 [facility] AWV [facility] PCSA Reason Comments Diabetic Eye Exam Reason Comments Follow Up Reason Onset Date Comments Fatigue 08/13/2024 Reason Comments Hospital Follow Up Reason Comments Radiology XR Specialty Diagnoses / Procedures Referred By Contac t Referred To Contact XR IMAGING Diagnoses Pain Procedures XR SHOULDER GENERAL 3V OR MORE AP/TRUE AP/OTHER LT X-RAY SHOULDER COMPLET [place] 2 [place] [address] [id number] [place] [address] Referral ID Status Reason Start Date Expiration Date V isits Requested Visits Authorized [id number] Closed Auto-Generate d Referral 07/09/2021 08/08/2022 1 1 Reason Comments Results Reason Comments Radio Gen RMP Radiology Service Pr ogress NotePATIENT NAME: Yusuf MedinaMRN: [id number] OF SERVICE: September 17, 2024TIME: 4:30 PMPATIENT [...] COMPLETE MINIMUM 3 [place] [address] [phone] [place] [address] Referral ID Status Reason Start Date Expiration Date V isits Requested Visits Authorized [id number] Closed Auto-Generate d Referral 09/17/2024 10/17/2025 1 1 Reason Comments Results Suspicion for calcan eal bone fracture Reason Comments Radiology US Specialty Diagnoses / Procedures Referred By Contac t Referred To Contact US IMAGING Diagnoses Right ankle swelling Procedures US DVT LOWER RIGHT DUP-SCAN XTR VEINS UNILATERAL/[place] [address] [place] [address] [facility] [place] [address] Referral ID Status Reason Start Date Expiration Date V isits Requested Visits Authorized [id number] Closed Auto-Generate d Referral 09/18/2024 10/17/2025 1 1 Reason Comments New 8/10 PAIN CONSTANT A ABEL Pain 8/10 PAIN CONSTANT A ABEL Specialty Diagnoses / Procedures Referred By Contac t Referred To Contact Orthopedics / ORTHOPAEDIC SURGERY Diagnoses Right ankle swelling Closed nondisplaced fracture of right calcaneus, unspecified portion of calcaneus, initial encounter Procedures CONSULT PANEL TO ORTHOPAEDICS OFFICE/OUTPATIENT [facility] [address] [place] [address] [place] [address] [facility] [address] [place] [address] Referral ID Status Reason Start Date Expiration Date V isits Requested Visits Authorized [id number] Closed PCP Requested Referral 09/18/2024 09/18/2025 1 1 Reason Comments Consult leukocytosis Specialty Diagnoses / Procedures Referred By Contac t Referred To Contact Diagnoses Leukocytosis, unspecified type Procedures CONSULT TO HEMATOLOGY/ONCOLOGY OFFICE/OUTPATIENT [facility] [address] [place] [address] [place] [address] Referral ID Status Reason Start Date Expiration Date V isits Requested Visits Authorized [id number] Closed PCP Requested Referral 09/04/2024 09/04/2025 1 1 Reason Comments Medicare Wellness Exam Reason Comments Follow Up Reason Comments Radio Gen RMP Radiology Service Pr ogress NotePATIENT NAME: Yusuf MedinaMRN: [id number] OF SERVICE: November 01, 2024TIME: 2:15 PMPATIENT [...] COMPLETE MINIMUM 3 VIEWS Simone Kevin MD [address] [place] [address] X[facility] [place] [address] Referral ID Status Reason Start Date Expiration Date V isits Requested Visits Authorized [id number] Closed Auto-Generate d Referral 11/01/2024 12/01/2025 1 1 Reason Comments infection on ankle Right ankle looks in fected Specialty Diagnoses / Procedures Referred By Contac t Referred To Contact MR IMAGING Diagnoses Chronic pain of right ankle Procedures MRI ANKLE WO IVCON RIGHT MRI ANY JT LOWER EXTREM W/O CONTRAST MATRL Simone Kevin MD [address] [place] [address] Mr [facility] [place] [address] Referral ID Status Reason Start Date Expiration Date V isits Requested Visits Authorized [id number] Closed Auto-Generate d Referral 11/01/2024 12/01/2025 1 [...] Care Teams (unrecognized sec tion and content) Lithographic Press Operator Relationship Specialty [place] [address] [place] [address] PCP - General Family Practice 10/05/10 Edenilson Townsend [address] [place] [address] Consulting Optometry 12/07/17 Lithographic Press Operator Relationship Specialty [place] [address] [place] [address] PCP - General Family Practice 10/05/10 Edenilson Townsend [address] [facility] [address] Consulting Optometry 12/07/17 Lithographic Press Operator Relationship Specialty [place] [address] [place] [address] PCP - General Family Practice 10/05/10 Edenilson Townsend [address] [facility] [address] Consulting Optometry 12/07/17 Lithographic Press Operator Relationship Specialty [place] [address] [place] [address] PCP - General Family Practice 10/05/10 Edenilson Townsend [address] [facility] [address] Consulting Optometry 12/07/17 José Miguel Swanson, [facility] [address] [place] [address] Transitional Care Pharmacist Pharmacy 03/30/22 04/30/22 Katia Farooq, swage tender Wrapper Layer 03/30/22 04/29/22 Lithographic Press Operator Relationship Specialty [place] [address] [place] [address] PCP - General Family Practice 10/05/10 Edenilson Townsend [address] [facility] [address] Consulting Optometry 12/07/17 José Miguel Swanson [facility] [address] [place] [address] Transitional Care Pharmacist Pharmacy 03/30/22 04/30/22 Katia Farooq, swage tender Wrapper Layer 03/30/22 04/29/22 Lithographic Press Operator Relationship Specialty [place] [address] [place] [address] PCP - General Family Practice 10/05/10 Edenilson Townsend [address] [place] [address] Consulting Optometry 12/07/17 José Miguel Swanson, [facility] [address] [place] [address] Transitional Care Pharmacist Pharmacy 03/30/22 04/30/22 Katia Farooq, swage tender Wrapper Layer 03/30/22 04/29/22 Lithographic Press Operator Relationship Specialty [place] [address] [place] [address] PCP - General Family Practice 10/05/10 Edenilson Townsend [address] [place] [address] Consulting Optometry 12/07/17 José Miguel Swanson, [facility] [address] [place] [address] Transitional Care Pharmacist Pharmacy 03/30/22 04/30/22 Katia Farooq, swage tender Wrapper Layer 03/30/22 04/29/22 Lithographic Press Operator Relationship Specialty [place] [address] [place] [address] PCP - General Family Practice 10/05/10 Edenilson Townsend [address] [place] [address] Consulting Optometry 12/07/17 José Miguel Swanson, [facility] [address] [place], [place] [id number] Transitional Care Pharmacist Pharmacy 03/30/22 04/30/22 Katia Farooq, swage tender Wrapper Layer 03/30/22 04/29/22 Lithographic Press Operator Relationship Specialty [place] [address] [place] [address] PCP - General Family Practice 10/05/10 Edenilson Townsend [address] [place] [address] Consulting Optometry 12/07/17 Lithographic Press Operator Relationship Specialty [place] [address] [place] [address] PCP - General Family Practice 10/05/10 Edenilson Townsend [address] [place] [address] Consulting Optometry 12/07/17 Lithographic Press Operator Relationship Specialty [place] [address] [place] [address] PCP - General Family Practice 10/05/10 Edenilson Townsend [address] [place] [address] Consulting Optometry 12/07/17 Lithographic Press Operator Relationship Specialty Start [place] [address] [place] [address] PCP - General Family Medicine 10/05/10 Edenilson Townsend [address] [place] [address] Consulting Optometry 12/07/17 Lithographic Press Operator Relationship Specialty Start [place] [address] [place] [address] PCP - General Family Medicine 10/05/10 Edenilson Townsend [address] [facility] [address] Consulting Optometry 12/07/17 Lithographic Press Operator Relationship Specialty Start [place] [address] [place] [address] PCP - General Family Medicine 10/05/10 Edenilson Townsend [address] [facility] [place] [address] Consulting Optometry 12/07/17 Lithographic Press Operator Relationship Specialty [place] [address] [place] [address] PCP - General Family Medicine 10/05/10 Edenilson Townsend [address] [place] [address] Consulting Optometry 12/07/17 Lithographic Press Operator Relationship Specialty [place] [address] [place] [address] PCP - General Family Medicine 10/05/10 Edenilson Townsend [address] [facility] [place] [address] Consulting Optometry 12/07/17 [place] [address] [place] [address] Primary Care Wrapper Layer 03/10/23 04/08/23 Lithographic Press Operator Relationship Specialty [place] [address] [place] [address] PCP - General Family Medicine 10/05/10 Edenilson Townsend [address] [facility] [place] [address] Consulting Optometry 12/07/17 [place] [address] [place] [address] Primary Care Wrapper Layer 03/10/23 04/08/23 Lithographic Press Operator Relationship Specialty [place] [address] [place] [address] PCP - General Family Medicine 10/05/10 Edenilson Townsend [address] [facility] [address] Consulting Optometry 12/07/17 [place] [address] [place] [address] Primary Care Wrapper Layer 03/10/23 04/08/23 Lithographic Press Operator Relationship Specialty [place] [address] [place] [address] PCP - General Family Medicine 10/05/10 Edenilson Townsend [address] [facility] [place] [address] Consulting Optometry 12/07/17 [place] [address] [place] [address] Primary Care Wrapper Layer 03/10/23 04/08/23 Lithographic Press Operator Relationship Specialty [place] [address] [place] [address] PCP - General Family Medicine 10/05/10 Edenilson Townsend [address] [facility] [place] [address] Consulting Optometry 12/07/17 Lithographic Press Operator Relationship Specialty [place] [address] [place] [address] PCP - General Family Medicine 10/05/10 Edenilson Townsend [address] [facility] [place] [address] Consulting Optometry 12/07/17 Lithographic Press Operator Relationship Specialty Start [place] [address] [place] [address] PCP - General Family Medicine 10/05/10 Edenilson Townsend [address] [facility] [place] [address] Consulting Optometry 12/07/17 Lithographic Press Operator Relationship Specialty Start [place] [address] [place] [address] PCP - General Family Medicine 10/05/10 Edenilson Townsend [address] [facility] [place] [address] Consulting Optometry 12/07/17 Lithographic Press Operator Relationship Specialty Start [place] [address] [place] [address] PCP - General Family Medicine 10/05/10 Edenilson Townsend [address] [facility] [place] [address] Consulting Optometry 12/07/17 Lithographic Press Operator Relationship Specialty Start [place] [address] [place] [address] PCP - General Family Medicine 10/05/10 Edenilson Townsend [address] [facility] [place] [address] Consulting Optometry 12/07/17 Lithographic Press Operator Relationship Specialty Start [place] [address] [place] [address] PCP - General Family Medicine 10/05/10 Edenilson Townsend OD [address] [place] [address] Consulting Optometry 12/07/17 Lithographic Press Operator Relationship Specialty Start [place] [address] [place] [address] PCP - General Family Medicine 10/05/10 Edenilson Townsend OD [address] [facility] [place] [address] Consulting Optometry 12/07/17 Lithographic Press Operator Relationship Specialty Start [place] [address] [place] [address] PCP - General Family Medicine 10/05/10 Edenilson Townsend OD [address] [facility] [place] [address] Consulting Optometry 12/07/17 Lithographic Press Operator Relationship Specialty Start [place] [address] [place] [address] PCP - General Family Medicine 10/05/10 Edenilson Townsend OD [address] [facility] [place] [address] Consulting Optometry 12/07/17 Lithographic Press Operator Relationship Specialty Start [place] [address] [place] [address] PCP - General Family Medicine 10/05/10 Edenilson Townsend OD [address] [facility] [place] [address] Consulting Optometry 12/07/17 Lithographic Press Operator Relationship Specialty Start [place] [address] [place] [address] PCP - General Family Medicine 10/05/10 Edenilson Townsend, OD [address] [place] [address] Consulting Optometry 12/07/17 Lithographic Press Operator Relationship Specialty Start [place] [address] [place] [address] PCP - General Family Medicine 10/05/10 Edenilson Townsend, CHETNA [address] [facility] [place] [address] Consulting Optometry 12/07/17 Lithographic Press Operator Relationship Specialty Start [place] [address] [place] [address] PCP - General Family Medicine 10/05/10 Edenilson Townsend, OD [address] [facility] [place] [address] Consulting Optometry 12/07/17 Lithographic Press Operator Relationship Specialty Start [place] [address] [place] [address] PCP - General Family Medicine 10/05/10 Edenilson Townsend, OD [address] [facility] [place] [address] Consulting Optometry 12/07/17 Lithographic Press Operator Relationship Specialty Start [place] [address] [place] [address] PCP - General Family Medicine 10/05/10 Edenilson Townsend OD [address] [facility] [place] [address] Consulting Optometry 12/07/17 Lithographic Press Operator Relationship Specialty Start [place] [address] [place] [address] PCP - General Family Medicine 10/05/10 Edenilson Townsend OD [address] [facility] [place] [address] Consulting Optometry 12/07/17 Lithographic Press Operator Relationship Specialty Start [place] [address] [place] [address] PCP - General Family Medicine 10/05/10 Edenilson Townsend OD [address] [facility] [place] [address] Consulting Optometry 12/07/17 Lithographic Press Operator Relationship Specialty Start [place] [address] [place] [address] PCP - General Family Medicine 10/05/10 Edenilsno Townsend OD [address] [facility] [place] [address] Consulting Optometry 12/07/17 Lithographic Press Operator Relationship Specialty Start [place] [address] [place] [address] PCP - General Family Medicine 10/05/10 Edenilson Townsend OD [address] [facility] [place] [address] Consulting Optometry 12/07/17 Lithographic Press Operator Relationship Specialty Start [place] [address] [place] [address] PCP - General Family Medicine 10/05/10 Edenilson Townsend, CHETNA [address] [facility] [place] [address] Consulting Optometry 12/07/17 Lithographic Press Operator Relationship Specialty Start [place] [address] [place] [address] PCP - General Family Medicine 10/05/10 Edenilson Townsend, OD [address] [facility] [place] [address] Consulting Optometry 12/07/17 Lithographic Press Operator Relationship Specialty Start [place] [address] [place] [address] PCP - General Family Medicine 10/05/10 Edenilson Townsend, OD [address] [facility] [place] [address] Consulting Optometry 12/07/17 Lithographic Press Operator Relationship Specialty Start [place] [address] [place] [address] PCP - General Family Medicine 10/05/10 Edenilson Townsend, OD [address] [facility] [place] [address] Consulting Optometry 12/07/17 Lithographic Press Operator Relationship Specialty Start [place] [address] [place] [address] PCP - General Family Medicine 10/05/10 Edenilson Townsend, OD [address] [place] [address] Consulting Optometry 12/07/17 Lithographic Press Operator Relationship Specialty Start [place] [address] [place] [address] PCP - General Family Medicine 10/05/10 Edenilson Townsend, OD [address] [place] [address] Consulting Optometry 12/07/17 Cinthia Ponce, ENVIRONMENT COORDINATOR.DETENTION SERGEANT [id number] [place] [address] Rate Setter Family Medicine 10/21/24 Willie Kaur, ENVIRONMENT COORDINATOR.DETENTION SERGEANT [address] [facility] [place] [address] Rate Setter Family Medicine 10/21/24 Lithographic Press Operator Relationship Specialty [place] [address] [place] [address] PCP - General Family Medicine 10/05/10 Edenilson Townsend, OD [address] [place] [address] Consulting Optometry 12/07/17 Cinthia Ponce, ENVIRONMENT COORDINATOR.DETENTION SERGEANT [id number] [place] [address] Rate Setter Family Medicine 10/21/24 Willie Kaur, ENVIRONMENT COORDINATOR.DETENTION SERGEANT [address] [place] [place] [address] Rate Setter Family Medicine 10/21/24 Lithographic Press Operator Relationship Specialty Start [place] [address] [place] [address] PCP - General Family Medicine 10/05/10 Edenilson Townsend, OD [address] [place] [address] Consulting Optometry 12/07/17 Cinthia Ponce, ENVIRONMENT COORDINATOR.DETENTION SERGEANT [address] [place] [address] Rate Setter Family Medicine 10/21/24 Willie Kaur, ENVIRONMENT COORDINATOR.DETENTION SERGEANT [address] [place] [address] Rate Setter Family Medicine 10/21/24 Lithographic Press Operator Relationship Specialty Start [place] [address] [place] [address] PCP - General Family Medicine 10/05/10 Edenilson Townsend, OD [address] [place] [address] Consulting Optometry 12/07/17 Cinthia Ponce, ENVIRONMENT COORDINATOR.DETENTION SERGEANT [address] [place] [address] Rate Setter Family Medicine 10/21/24 Willie Kaur, ENVIRONMENT COORDINATOR.DETENTION SERGEANT [address] [place] [address] Rate Setter Family Medicine 10/21/24 Lithographic Press Operator Relationship Specialty Start [place] [address] [place] [address] PCP - General Family Medicine 10/05/10 Edenilson Townsend, OD [address] [place] [address] Consulting Optometry 12/07/17 Cinthia Ponce, ENVIRONMENT COORDINATOR.DETENTION SERGEANT [address] [place] [address] Rate Setter Family Medicine 10/21/24 Willie Kaur, ENVIRONMENT COORDINATOR.DETENTION SERGEANT [address] [place] [address] Rate Setter Family Medicine 10/21/24 Lithographic Press Operator Relationship Specialty Start [place] [address] [place] [address] PCP - General Family Medicine 10/05/10 Edenilson Townsend, OD [address] [place] [address] Consulting Optometry 12/07/17 Cinthia Ponce, ENVIRONMENT COORDINATOR.DETENTION SERGEANT [address] [place] [address] Rate Setter Family Medicine 10/21/24 Willie Kaur, ENVIRONMENT COORDINATOR.DETENTION SERGEANT [address] [place] [address] Rate Setter Family Medicine 10/21/24 Lithographic Press Operator Relationship Specialty [place] [address] [place] [address] PCP - General Family Medicine 10/05/10 Edenilson Townsend OD [address] [place] [address] Consulting Optometry 12/07/17 Cinthia Ponce, ENVIRONMENT COORDINATOR.DETENTION SERGEANT [address] [place] [address] Rate Setter Family [facility] 10/21/24 Willie Kaur, ENVIRONMENT COORDINATOR.DETENTION SERGEANT [address] [place] [address] Rate Setter Family [facility] 10/21/24 Lithographic Press Operator Relationship Specialty [place] [address] [place] [address] PCP - General Family Medicine 10/05/10 Edenilson Townsend OD [address] [place] [address] Consulting Optometry 12/07/17 Cinthia Ponce, ENVIRONMENT COORDINATOR.DETENTION SERGEANT [address] [place] [address] Rate Setter Family [facility] 10/21/24 Willie Kaur, ENVIRONMENT COORDINATOR.DETENTION SERGEANT [address] [place] [address] Rate Setter Family [facility] 10/21/24 Lithographic Press Operator Relationship Specialty Start [place] [address] [place] [address] PCP - General Family Medicine 10/05/10 Edenilson Townsend OD [address] [place] [address] Consulting Optometry 12/07/17 Cinthia Ponce, ENVIRONMENT COORDINATOR.DETENTION SERGEANT [address] [place] [address] Rate Setter Family [facility] 10/21/24 Willie Kaur, ENVIRONMENT COORDINATOR.DETENTION SERGEANT [address] [place] [address] Rate Setter Family Medicine 10/21/24 Lithographic Press Operator Relationship Specialty Start [place] [address] [place] [address] PCP - General Family Medicine 10/05/10 Edenilson Townsend OD [address] [place] [address] Consulting Optometry 12/07/17 Cinthia Ponce, ENVIRONMENT COORDINATOR.DETENTION SERGEANT [address] [place] [address] [facility] Family [facility] 10/21/24 Willie Kaur, ENVIRONMENT COORDINATOR.DETENTION SERGEANT [address] [place] [address] [facility] Set[facility] Family [facility] 10/21/24 Lithographic Press Operator Relationship Specialty Start [place] [address] [place] [address] PCP - General Family Medicine 10/05/10 Edenilson Townsend OD [address] [place] [address] Consulting Optometry 12/07/17 Cinthia Ponce, ENVIRONMENT COORDINATOR.DETENTION SERGEANT [address] [place] [address] [facility]ter Family [facility] 10/21/24 Willie Kaur, ENVIRONMENT COORDINATOR.DETENTION SERGEANT [address] [place] [address] Rate Setter Family [facility] 10/21/24 Lithographic Press Operator Relationship Specialty Start [place] [address] [place] [address] PCP - General Family Medicine 10/05/10 Edenilson Townsend OD [address] [place] [address] Consulting Optometry 12/07/17 Cinthia Ponce, ENVIRONMENT COORDINATOR.DETENTION SERGEANT [address] [place] [address] [facility] 10/21/24 Willie Kaur, ENVIRONMENT COORDINATOR.DETENTION SERGEANT [address] [place] [address] Rate Setter [facility] Medicine 10/21/24 Lithographic Press Operator Relationship Specialty Start [place] [address] [place] [address] PCP - General Family Medicine 10/05/10 Edenilson Townsend, OD [address] [place] [address] Consulting Optometry 12/07/17 Cinthia Ponce ENVIRONMENT COORDINATOR.DETENTION SERGEANT [address] [place] [address] Rate Setter Family Medicine 10/21/24 Willie Kaur APRN.DETENTION SERGEANT [address] [place] [address] Rate Setter Family Medicine 10/21/24 Lithographic Press Operator Relationship Specialty Start [place] [address] [place] [address] PCP - General Family Medicine 10/05/10 Edenilson Townsend OD [address] [place] [address] Consulting Optometry 12/07/17 Cinthia Ponce ENVIRONMENT COORDINATOR.DETENTION SERGEANT [address] [place] [address] [facility] Family Medicine 10/21/24 Willie Kaur, ENVIRONMENT COORDINATOR.DETENTION SERGEANT [address] [place] [address] Rate Setter Family [facility] 10/21/24 Lithographic Press Operator Relationship Specialty [place] [address] [place] [address] PCP - General Family Medicine 10/05/10 Edenilson Townsend OD [address] [place] [address] Consulting Optometry 12/07/17 Cinthia Ponce ENVIRONMENT COORDINATOR.DETENTION SERGEANT [address] [place] [address] Rate Setter Family Medicine 10/21/24 Willie Kaur, ENVIRONMENT COORDINATOR.DETENTION SERGEANT [address] [place] [address] Rate Setter [facility] 10/21/24 Lithographic Press Operator Relationship Specialty Start [place] [address] [place] [address] PCP - General Family Medicine 10/05/10 Edenilson Townsend, CHETNA [address] [place] [address] Consulting Optometry 12/07/17 Cinthia Ponce ENVIRONMENT COORDINATOR.DETENTION SERGEANT [address] [place] [address] [facility] Willie Kaur, ENVIRONMENT COORDINATOR.DETENTION SERGEANT [address] [place] [address] [facility] 10/[facility] Lithographic Press Operator Relationship Specialty Start [place] [address] [place] [address] PCP - General Family Medicine 10/05/10 Edenilson Townsend, OD [address] [place] [address] Consulting Optometry 12/07/17 Cinthia Ponce ENVIRONMENT COORDINATOR.DETENTION SERGEANT [address] [place] [address] Rate Setter Family [facility] 10/21/24 Willie Kaur ENVIRONMENT COORDINATOR.DETENTION SERGEANT [address] [place] [address] Rate Setter Family Medicine 10/21/24 Lithographic Press Operator Relationship Specialty Start [place] [address] [place] [address] PCP - General Family Medicine 10/05/10 Edenilson Townsend, CHETNA [address] [place] [address] Consulting Optometry 12/07/17 Cinthia Ponce ENVIRONMENT COORDINATOR.DETENTION SERGEANT [address] [place] [address] [facility] Family [facility] 10/21/24 Willie Kaur, ENVIRONMENT COORDINATOR.DETENTION SERGEANT [address] [place] [address] Rate Setter Family Medicine 10/21/24 Lithographic Press Operator Relationship Specialty Start [place] [address] [place] [address] PCP - General Family Medicine 10/05/10 Edenilson Townsend OD [address] [place] [address] Consulting Optometry 12/07/17 Cinthia Ponce, ENVIRONMENT COORDINATOR.DETENTION SERGEANT [address] [place] [address] Rate Setter Family Medicine 10/21/24 Willie Kaur, ENVIRONMENT COORDINATOR.DETENTION SERGEANT [address] [place] [address] Rate Setter Family Medicine 10/21/24 Lithographic Press Operator Relationship Specialty Start [place] [address] [place] [address] PCP - General Family Medicine 10/05/10 Edenilson Townsend OD [address] [place] [address] Consulting Optometry 12/07/17 Cinthia Ponce, ENVIRONMENT COORDINATOR.DETENTION SERGEANT [address] [place] [address] [facility] 10/21/24 Willie Kaur, ENVIRONMENT COORDINATOR.DETENTION SERGEANT [address] [place], [place] [id number] [facility] 10/21/24 Team Status: Active Member Role Status [...] Provider Active S tart: February 04, 2025 Lithographic Press Operator Relationship Specialty Start [place] [address] [place] [address] PCP - General Family Medicine 10/05/10 Edenilson Townsend OD [address] [place] [address] Consulting Optometry 12/07/17 Cinthia Ponce, ENVIRONMENT COORDINATOR.DETENTION SERGEANT [address] [place] [address] [facility] Family [facility] 10/21/24 Willie Kaur ENVIRONMENT COORDINATOR.DETENTION SERGEANT [address] [place], [place] [address] [facility] 10/21/24 Team Status: Inactive Member [...] Provider Active S tart: April 01, 2025 Lithographic Press Operator Relationship Specialty Start [place] [address] [place], [place] [address] PCP - General Family [facility] 10/05/10 Edenilson Townsend, OD [address] [place] [address] Consulting Optometry 12/07/17 Willie Kaur, ARNOLD.DETENTION SERGEANT [address] [place] [address] [facility] 10/21/24 Lithographic Press Operator Relationship Specialty Start [place] [address] [place] [address] PCP - [facility] 10/05/10 Edenilson Townsend OD [address] [place] [address] Consulting Optometry 12/07/17 Willie Kaur, ENVIRONMENT COORDINATOR.DETENTION SERGEANT [address] [place] [address] [facility] 10/21/24 Goals (unrecognized section and content) Goals [...] BE BASED ON THE PRIMARY CLINICAL RECORDS. [facility] [employer] [facility]. provides no warranty or guarantee of the accuracy or completeness of information in this document.
[2025-06-24 11:05] LABS: CRP < 3.00 mg/L (0.0-3.0)
== END ==
LOC: OLS.ACH 04:00
PROVIDERS: Referring Provider Internal Medicine; Visit Provider Internal Medicine
DX: M46.92 Unspecified inflammatory spondylopathy, cervical region (principal); Z86.14 Personal history of Methicillin resistant Staphylococcus aureus infection
CPT/HCPCS: 36415; 85652; 86140

== ENCOUNTER → 2025-07-22 05:00 | Outpatient (REF) | payer MEDICARE, SELFPAY ==
--- OUTSIDE RECORDS SUMMARY | 2025-07-22 04:01 | XMS RPT_ITS | CCD ---
Author Organization [facility] ion [facility] Care Team Providers Care Precision Machine Operator Name Role Phone Migdalia Cramer MD Primary Care Provider Edenilson Townsend Unavailable Sky [facility] Hospital[facility] Miguel Unavailable Oseas MURRIETA, Katia Unavailable UnavailMigdalia Matute MD Primary Care Provider Edenilson Townsend Unavailable Migdalia Cramer MD Primary Care Provider Edenilson Townsend Unavailable [phone] Lien Hankins RN Unavailable Edenilson Townsend OD Unavailable [phone] Migdalia Cramer MD Primary Care Provider Kris UNDERWATER HUNTER TRAPPER.Cinthia JUAN Unavailable [facility] UNDERWATER HUNTER TRAPPER.Willie JUAN Unavailable Aubree HODGE, Mario Attending Provider [...] Primary Care Unavailable ELMA THOMPSON Attending Unavailable Deperro MD, Mario Attending Provider Unavailable Deperro MD, [...] Referring Unavailable Deperro OLS, Mario Attending Unavailable TYESHA SINGLETON Attending Unavailable MIGDALIA CRAMER Primary Care Unavailable MITSCH, WILLIE Referring Unavailable MIGDALIA CRAMER Primary Care Unavailable MITHOLDEN, WILLIE Referring Unavailable MIGDALIA CRAMER Primary Care Unavailable ANDREA, GRUPO Attending Unavailable MIGDALIA CRAMER Referring Unavailable CRAMER, MIGDALIA Archibald Primary Care Unavailable MIGDALIA CRAMER Attending Unavailable MIGDALIA CRAMER Primary Care Unavailable ANDREA, GRUPO Referring Unavailable MIGDALIA CRAMER Primary Care Unavailable SIMONE KEVIN Referring Unavailable MIGDALIA CRAMER Primary Care Unavailable MARIUSZ ROMO Attending Unavailable MIGDALIA CRAMER Primary Care Unavailable SIMONE KEVIN Referring Unavailable MIGDALIA CRAMER Primary Care Unavailable ANDREA, GRUPO Referring Unavailable CRAMER, MIGDALIA Archibald Primary Care Unavailable ANDREA, GRUPO Referring Unavailable CRAMER, MIGDALIA Archibald Primary Care Unavailable MIGDALIA CRAMER Primary Care Unavailable SIMONE KEVIN Referring Unavailable ANDREA, GRUPO Referring Unavailable MIGDALIA CRAMER Primary Care Unavailable SIMONE KEVIN Attending Unavailable AB BENSON Attending Unavailable MIGDALIA CRAMER Primary Care Unavailable SELF Referring Unavailable MIGDALIA CRAMER Primary Care Unavailable SIMONE KEVIN Attending Unavailable SIMONE KEVIN Referring Unavailable MIGDALIA CRAMER Primary Care Unavailable GRUPO MENDEZ Referring Unavailable MIGDALIA CRAMER Primary Care Unavailable GRUPO MENDEZ Attending Unavailable MIGDALIA CRAMER Primary Care Unavailable MIGDALIA CRAMER Attending Unavailable MIGDALIA CRAMER Primary Care Unavailable MARIUSZ ROMO Referring Unavailable MIGDALIA CRAMER Primary Care Unavailable MIGDALIA CRAMER Attending Unavailable Medications Current Medications Medication Drug Class(es) Dates Sig (Normalized) Sig (Original) acetaminophen 325 mg oral capsule (14 sources) take 2 tablets by mouth three times daily for pain acetaminophen 325 mg cap Take 325 mg by mouth two times a day. Give 2 tablets by mouth three times a day for pain for 2 weeks Active albuterol 0.833 mg/ml / ipratropium bromide 0.167 mg/ml inhalation solution (9 sources) Anticholinergic, beta2-Adrenergic Agonist take 3 mL [...] DAILY ascorbic acid 500 mg oral tablet (9 sources) Vitamin C take 1 tablet by mouth twice daily ascorbic acid, vitamin C, (VITAMIN C) 500 mg tablet Take 500 mg by mouth two times a day. Active atorvastatin 40 mg oral tablet (9 sources) HMG-CoA Reductase Inhibitor take 1 tablet [...] Comment on above: Take 1 capsule by [facility] once daily for 3 doses. colchicine 0.6 mg oral tablet (20 sources) Start: 12-12-2024 End: 03-12-2025 take 1 [...] needed. docusate sodium 50 mg / sennosides, fpc 8.6 mg oral tablet (14 sources) take 1 tablet by mouth once [...] by iwona th twice daily. GLUCAGON INJECTION (9 sources) GLUCAGON INJECTI ON 1 mg by INJECTION(UNSPECIFIED PARENTERAL ROUTES) route as needed (hypoglycemia). If glucose is less than 70 and non-responsive or NPO. Repeat blood sugar in 15 minutes. Active 3 ml insulin glargine 100 unt/ml pen injector (20 sources) Insulin Analog Start: inject 22 [IU] by subcutaneous injection once daily at bedtime insulin glargine 100 unit/mL (3 mL) Inject 22 Units subcutaneously daily at bedtime. 12/12/2024 Active insulin lispro 100 unt/ml injectable solution (20 sources) Insulin Analog Start: inject 8 [IU] [...] affected area lisinopril 20 mg oral tablet (20 sources) Angiotensin Converting Enzyme Inhibitor Start: take 1 tablet by mouth once daily lisinopril (ZESTRIL) 20 mg tablet Take 1 tablet by mouth once daily. 12/12/2024 Active magnesium hydroxide 80 mg/ml oral suspension (14 sources) take 5 mL by mouth once [...] pantoprazole 40 mg delayed release oral tablet (20 sources) Proton Pump Inhibitor Start: take 1 [...] once daily. predniSONE 5 mg oral tablet (19 sources) Start: 12-12-2024 End: 2024 take 4 [...] psyllium 3400 mg powder for oral suspension (14 sources) psyllium husk (METAMUCIL) 3.4 gram/5.4 gram powd Take 3.4 g by mouth once daily. One time a day for constipation Active therapeutic multivitamin-minerals (THERA-M PLUS) 9 mg iron-400 mcg tablet (9 sources) therapeutic multivitamin-mineral s (THERA-M PLUS) 9 [...] Active vitamin b6 50 mg oral tablet (10 sources) Start: 5 take 1 tablet by [...] on above: Take 1 capsule by mo [facility] once daily. TAKE 1 CAPSULE BY MO [facility] ONCE DAILY melatonin 3 mg oral [...] disease, without long-term current use of insulin ([facility]) Take 1 tablet by mouth once daily. 90 tablet 3 04/26/2024 04/26/2025 Suspended Start: 06-18-2022 pioglitazone ( ACTOS) 45 mg tablet Indications: Type 2 diabetes mellitus with stage 3 chronic kidney disease, without long-term current use of insulin ([facility]) TAKE 1 TABLET BY MOUTH ONCE DAILY 90 tablet 3 06/18/2022 Active Start: 08-19-2020 End: 07-14-2021 pioglitazone (ACTOS) 45 mg t ablet Indications: Type 2 diabetes mellitus with stage 3 chronic kidney disease, without long-term current use of insulin ([facility]) TAKE 1 TABLET BY MOUTH ONCE DAILY 90 tablet 3 07/14/2021 Active Comment on above: TAKE 1 TABLET BY IWONA ONCE DAILY polyethylene glycol 3350 40286 mg powder for oral solution (20 sources) [...] Classification Problem Date Documented Da te Episodic/Chronic Anxiety disorders (20 sources) Anxiety; Translations: [Anxiety disorder, unspecified] Onset: 5 12-08-2024 Chronic Bacterial infection; unspecified site (2 [...] hypertension] Onset: 7 Resolved: 7 01-29-2020 Chronic Genitourinary symptoms and ill-defined conditions (20 sources) Urgent desire to urinate; Translations: [Urgency of urination] Onset: 7 Resolved: 7 09-15-2011 Episodic Gout and other crystal arthropathies (20 sources) Pyrophosphate arthritis; 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, multiple sites] Onset: 5 12-07-2024 Chronic Hypertension with complications and secondary hypertension (20 sources) Chronic kidney disease stage 3 due to hypertension; Translations: [Hypertensive chronic kidney disease with stage 1 through stage 4 chronic kidney disease, or unspecified chronic kidney disease] Onset: 1 03-17-2021 Chronic Infective arthritis and osteomyelitis (except that caused by tuberculosis or sexually transmitted disease) (1 source) Osteomyelitis of lower leg; Translations: [Subacute osteomyelitis, right tibia and fibula] 01-08-2025 Chronic Miscellaneous mental health disorders (20 sources) Primary insomnia; Translations: [Primary insomnia] Onset: 7 05-25-2017 Chronic Nutritional deficiencies (20 sources) Vitamin D deficiency; Translations: [Vitamin D [...] signs involving the musculoskeletal system] Episodic Other gastrointestinal disorders (1 source) Diarrhea, unspecified; Translations: [Diarrhea, unspecified] Onset: 5 Episodic Other injuries and conditions due to [...] loss; Translations: [Abnormal weight loss] 07-12-2024 Episodic Other screening for suspected conditions (not mental disorders or infectious disease) (2 sources) Imaging result abnormal; Translations: [Abnormal findings on diagnostic imaging of other specified body structures] 07-05-2025 Chronic Rehabilitation care; fitting of prostheses; and adjustment of devices (20 sources) Patient encounter status; Translations: [Encounter for [...] cervical region] Onset: 0 Resolved: 3 Chronic Superficial injury; contusion (1 source) Abrasion, right ankle, initial encounter; Translations: [Abrasion or friction burn of hip, thigh, leg, and ankle, without mention of infection] 09-13-2024 Episodic Thyroid disorders (20 sources) Thyroid nodule; Translations: [Nontoxic single thyroid nodule] Onset: 5 12-08-2024 Chronic Unclassified (1 source) Wound Check Onset: 5 Urinary tract infections (20 sources) Acute cystitis; Translations: [Acute cystitis without hematuria] Onset: 2 Resolved: 2 03-24-2022 Episodic Past or Other Problems Problem Classification Problem Date Documented Da te Episodic/Chronic Abdominal pain (20 sources) Left upper quadrant pain; Translations: [Left [...] 2 03-27-2022 Episodic Deficiency and other anemia (20 sources) Anemia; Translations: [Anemia, unspecified] Onset: 5 12-06-2024 Episodic Deficiency and other anemia (20 sources) Chronic anemia; Translations: [Anemia, unspecified] Onset: 5 12-08-2024 Episodic Deficiency and other anemia (1 source) Anemia, unspecified; Translations: [Normocytic anemia] Onset: 2 Episodic Fluid and electrolyte disorders (20 sources) Electrolyte imbalance; Translations: [Other disorders of electrolyte and fluid balance, not elsewhere classified] Onset: 2 Resolved: 2 05-11-2022 Episodic Fracture of lower limb (3 sources) Closed fracture of calcaneus; Translations: [Unspecified fracture of right calcaneus, initial encounter for closed fracture] Onset: 4 09-18-2024 Episodic Genitourinary symptoms and ill-defined conditions (20 sources) Urge incontinence of urine; Translations: [Urge incontinence] Onset: 7 Resolved: 7 12-01-2016 Chronic Headache; including migraine (20 sources) Headache; Translations: [Headache, unspecified headache type] Onset: 5 08-14-2024 Episodic Immunizations and screening for infectious disease (20 sources) Anti-nuclear factor positive; Translations: [Other specified abnormal immunological findings in serum] Onset: 5 12-06-2024 Episodic Malaise and fatigue (20 sources) Asthenia; Translations: [Weakness] Onset: 4 08-14-2024 Episodic Menopausal disorders (20 sources) Atrophic vaginitis; Translations: [Postmenopausal atrophic vaginitis] Onset: 7 Resolved: 6 05-11-2016 Chronic Neoplasms of unspecified nature or uncertain behavior (20 sources) Thrombocytosis; Translations: [Thrombocytosis] Onset: 5 12-06-2024 [...] Episodic Other connective tissue disease (20 sources) Foot pain; Translations: [Pain in left foot] Onset: 5 12-06-2024 Episodic Other connective tissue disease (20 sources) Muscle pain; Translations: [Myalgia, unspecified site] Onset: 5 12-06-2024 Episodic Other connective tissue disease (20 sources) Muscle weakness of limb; Translations: [Other [...] 05-11-2016 Episodic Other inflammatory condition of skin (20 sources) Erythema; Translations: [Erythematous condition, unspecified] Onset: 5 12-06-2024 Episodic Other injuries and conditions due to external causes (20 sources) Open wound; Translations: [Other injury of [...] 3 03-09-2023 Episodic Other non-traumatic joint disorders (20 sources) Acute ankle pain; Translations: [Pain in [...] 2 03-24-2022 Episodic Phlebitis; thrombophlebitis and thromboembolism (20 sources) Thrombophlebitis of superficial vein of left upper limb; Translations: [Phlebitis and thrombophlebitis of other sites] Onset: 5 12-06-2024 Episodic Residual codes; unclassified (20 sources) Unable to perform personal care activity; Translations: [Other specified health status] Onset: 2 Resolved: 2 03-29-2022 Episodic Residual codes; unclassified (20 sources) Pain; Translations: [Pain, unspecified] Onset: 5 Resolved: 5 07-14-2021 Episodic Residual codes; unclassified (20 sources) Generalized acute body pains; Translations: [Pain, unspecified] Onset: 5 12-06-2024 Episodic Residual codes; unclassified (20 sources) Altered mental status; Translations: [Altered mental [...] Test Name Value Interpretation Reference Range Facility [facility] 07-05-2025 [facility] Telephone ([employer]) YUSUF MEDINA ([id number]) 1935 [facility] Date Time Provider Department 07/05/25 MARCO A MERIDA During your visit today, we recorded the following information about you: Allergies As of Date: 07/05/2025 (No Known Allergies) Date Reviewed: 02/13/2025 Reviewed by: Margie Steiner RN - Fully Assessed Primary Visit Diagnosis:Abnormal finding of diagnostic imaging [R93.89] Order(s):[facility] TO [facility] [[id number]] Order #: [id number]: 1 FUTURE Prescriptions as of 07/05/2025 - atorvastatin (LIPITOR) 40 mg tablet Take [...] this patient by: CAREGIVER José Miguel Swanson [facility] Problem List As Of Date 07/05/2025 Noted Resolved Osteoarth NOS-other site [M19.90] 09/15/2011 [...] type 2, controlled, without c*05/24/2011 05/11/2016 Renal dysf (more content not included)... Normal [facility] CRPon 06-24-2025 C-REACTIVE PROT < 3.00 Normal 0.0-3.0 [facility] Comment on above: Order Comment: 107.1 Performed By: #### L 501.6710, L101.9900 #### [facility] [address] [place], [address] Erythrocyte Sed Rateon 06-24 SED RATE 15 mm/hr Normal 0-30 [facility] Comment on above: Order Comment: 107.1 Performed By: #### L 501.6710, L101.9900 #### [facility] [address] [place], [address] CDIFF (PCR)on 06-20-2025 CDIFF Pending [phone] [id number] Presumptive Negative *for epidemiolologic???use C. Diff PCR Negative- No toxigenic C. Diff Detected Normal [facility] Comment on above: Performed By: #### L 400.0001, M100.2200 #### [facility] [address] [place], [address] Hemoglobin A1con 06-04-2025 HbA1c (Bld) [Mass fraction] 7.2 % High <=5.6 [facility] Comment on above: Order Comment: 107-1 CLEAN CATCH Result Comment: Norm al < 5.7 % Prediabetic 5.7 - 6.4 % Diabetic >or= 6.5 % Please note range changes. Performed By: #### L 400.0001, M100.2200 #### [facility] [address] [place], [address] [facility] 05-28-2025 [facility] Telephone ([employer]) YUSUF MEDINA ([id number]) 1935 [facility] Date Time Provider Department 05/28/25 TYESHA SINGLETON [employer] During your visit today, we recorded the following information about you: Lidia Carbajal LPN 05/28/2025 2:12 PM Signed Received results of labs done on 05/27/2025 from [facility] (abnormal results in bold): CRP <3.00 [...] this patient by: CAREGIVER José Miguel Swanson [facility] Problem List As Of Date 05/28/2025 Noted [...] 05/11/2016 Hi (more content not included)... Normal [facility] CRPon 05-27-2025 C-REACTIVE PROT < 3.00 Normal 0.0-3.0 [facility] Comment on above: Order Comment: 107-1 CLEAN CATCH Performed By: #### L 400.0001, M100.2200 #### [facility] [address] [place], [place], [address] Erythrocyte Sed Rateon 05-27 SED RATE 14 mm/hr Normal 0-30 [facility] Comment on above: Order Comment: 107-1 CLEAN CATCH Performed By: #### L 400.0001, M100.2200 #### [facility] [address] [place], [place], [address] CNPNon 05-01-2025 [facility] Telephone ([employer]) YUSUF MEDINA ([id number]) 1935 [facility] [place] Date Time Provider Department 05/01/25 TYESHA SINGLETON During your visit today, we recorded the following information about you: Ketty Remy LPN 05/01/2025 4:38 PM Signed Received results of labs done on [facility] from 04/29/25 (abnormal results in bold): CRP 21.0 sed rate 32 Report sent for scanning. Tyesha Singleton MD 05/02/2025 8:14 AM Signed Please ask her to come in for follow up with me. Also make sure she is taking the colchicine and mobic as prescribed. MD Solomon Pruett Trena, LPN 05/02/2025 10:30 AM Signed Called and spoke to [id number], Demetria. Patient is in a long-term care facility. Called facility [phone], but unable to speak to nurse as [...] this patient by: CAREGIVER José Miguel Swanson [facility] Problem List As Of Date 05/01/2025 [...] 10/31/2010 09/23/2014 (more content not included)... Normal [facility] CRPon 04-29-2025 C-REACTIVE PROT 21.00 mg/L High 0.0-3.0 [facility] Comment on above: Order Comment: 107-1 CLEAN CATCH Performed By: #### L 400.0001, M100.2200 #### [facility] [address] [place], [address] Erythrocyte Sed Rateon 04-29 SED RATE 32 mm/hr High 0-30 [facility] Comment on above: Order Comment: 107-1 CLEAN CATCH Performed By: #### L 400.0001, M100.2200 #### [facility] [address] [place], [place], [address] Urine Cultureon 04-28-2025 URC 107-1 #2 Below infection level. PROBABLE PROTEUS SPECIES Escherichia coli [place] Count 11,000-25,000 Gram negative anabell Gram negative [...] TMP SMX Islt HEMANT <=20 S Normal [facility] Comment on above: Performed By: #### L 400.0001, M100.2200 #### [facility] [address] [place], [address] Urinalysis, Completeon 04-26 CAST,FINE GRAN 0-5 SEEN Normal 0-5 [facility] Comment on above: Order Comment: 107-1 CLEAN CATCH Performed By: #### L 400.0001, M100.0 #### [facility] [address] [place], [address] CAST,HYALINE 5-10 SEEN Normal 0-5 [facility] Comment on above: Order Comment: 107-1 CLEAN CATCH Performed By: #### L 400.0001, M100.0 #### [facility] [address] [place], [address] BACTERIA 1+ /hpf Normal None Seen [facility] Comment on above: Order Comment: 107-1 CLEAN CATCH Performed By: #### L 400.0001, M100.0 #### [facility] [address] [place], [address] EPI,SQUAMOUS 5-10 SEEN Normal 5-10 [facility] Comment on above: Order Comment: 107-1 CLEAN CATCH Performed By: #### L 400.0001, M100.0 #### [facility] [address] [place], [address] WBC 0-5 SEEN Normal 0-5 [facility] Comment on above: Order Comment: 107-1 CLEAN CATCH Performed By: #### L 400.0001, M100.2200 #### [facility] [address] [place], [address] Mucus Ql (Urine sed) 0 SEEN Normal [facility] Comment on above: Order Comment: 107-1 CLEAN CATCH Performed By: #### L 400.0001, M1.2199 #### [facility] [address] [place], [address] RBC 0 SEEN Normal 0-5 [facility] Comment on above: Order Comment: 107-1 CLEAN CATCH Performed By: #### L 400.0001, M1 #### [facility] [address] [place], [address] Urine Cultureon 04-12-2025 URC 107-1 #2 Probable Proteus species. Below infection level. Escherichia coli [place] Count 50,000-80,000 Gram negative anabell Gram negative [...] TMP SMX Islt HEMANT <=20 S Normal [facility] Comment on above: Performed By: #### L 400.0001, #### [facility] [address] [place], [address] Urinalysis, Completeon 04-11 CAST,HYALINE 0-5 SEEN Normal 0-5 [facility] Comment on above: Order Comment: 107-1 CLEAN CATCH Performed By: #### L 400.0001, M1 #### [facility] [address] [place], [address] BACTERIA 1+ /hpf Normal None Seen [facility] Comment on above: Order Comment: 107-1 CLEAN CATCH Performed By: #### L 400.0001, M1 #### [facility] [address] [place], [address] EPI,SQUAMOUS 0-5 SEEN Normal 5-10 [facility] Comment on above: Order Comment: 107-1 CLEAN CATCH Performed By: #### L 400.0001, M100.2200 #### [facility] [address] [place], [address] RBC 0-5 SEEN Normal 0-5 [facility] Comment on above: Order Comment: 107-1 CLEAN CATCH Performed By: #### L 400.0001, M100.2200 #### [facility] [address] [place], [address] WBC 5-10 SEEN Normal 0-5 [facility] Comment on above: Order Comment: 107-1 CLEAN CATCH Performed By: #### L 400.0001, M100.2200 #### [facility] [address] [place], [address] Mucus Ql (Urine sed) 0 SEEN Normal [facility] Comment on above: Order Comment: 107-1 CLEAN CATCH Performed By: #### L 400.0001, M100.2200 #### [facility] [address] [place], [address] Bilirubin Test strip Ql (U)O rdered By: Mario Mak on 04-10-2025 Bilirubin Ql (U) Negative Negative [facility] Hyaline casts LM.LPF (Urine sed) [#/Area]Ordered By: Mario Mak on 04-10-2025 Hyaline casts (Urine sed) [#/Area] 0 /[LPF] 0-5 [facility] Ketones Test strip Ql (U)Ord ered By: Mario Mak on 04-10-2025 Ketones Ql (U) Negative Negative [facility] Microscopic analysis of urin e for red blood cells (RBC)Ordered By: Mario aMk on 04-10-2025 Microscopic analysis of urine for red blood cells (RBC) 0-5 SEEN /hpf 0-5 [facility] Mucus LM Ql (Urine sed)Order ed By: Mario Mak on 04-10-2025 Mucus Ql (Urine sed) 0 SEEN /hpf [facility] Nitrite Test strip Ql (U)Ord ered By: Mario Mak on 04-10-2025 Nitrite Ql (U) Negative Negative [facility] Protein Test strip Ql (U)Ord ered By: Mario Mak on 04-10-2025 Protein Ql (U) 100 mg/dl High Negative [facility] Squamous epithelial cells de tection in urine sediment by light microscopyOrdered By: Mario Mak on 04-10-2025 Epithelial cells.squamous LM Ql (Urine sed) 0-5 SEEN /hpf 5-10 [facility] Urine clarityOrdered By: Shwetha Mak on 04-10-2025 Clarity (U) Clear Clear [facility] Urine color determinationOrd ered By: Mario Mak on 04-10-2025 Color (U) Yellow Yellow [facility] Urine cultureOrdered By: Shwetha Mak on 04-10-2025 Bacteria identified Cx Nom (U) Escherichia coli Abnormal [facility] Bacteria identified Cx Nom (U) Negative Abnormal [facility] Urine glucose detectionOrder ed By: Mario Mak on 04-10-2025 Glucose Ql (U) Normal mg/dl Normal [facility] Urine leukocyte esterase det ection by dipstickOrdered By: Mario Mak on 04-10-2025 Leukocyte esterase Test strip Ql (U) 100 /ul High Negative [facility] Urine pHOrdered By: Mario reece on 04-10-2025 pH (U) 6.0 [pH] 5.0 - 8.0 [facility] Urine sediment bacteria coun t by microscopy (number/high power field)Ordered By: Mario Mak on 04-10-2025 Bacteria LM.HPF (Urine sed) [#/Area] 1 /[HPF] None [facility]en [facility] [facility] Urine specific gravity measu rementOrdered By: Mario Mak on 04-10-2025 Specific gravity (U) [Rel density] 1.015 1.002-1.030 [facility] Urine urobilinogen measureme ntOrdered By: Mario Mak on 04-10-2025 Urobilinogen Ql (U) Normal mg/dl Normal [facility] White blood cell countOrdere d By: Mario Mak on 04-10-2025 White blood cell count 5-10 SEEN /hpf 0-5 [facility] CRPon 04-01-2025 C-REACTIVE PROT < 3.00 Normal 0.0-3.0 [facility] Comment on above: Order Comment: 107-1 Performed By: #### L 400.0001, M100.0 #### [facility] Laboratory [address] [place], [address] Erythrocyte Sed Rateon 04-01 SED RATE 14 mm/hr Normal 0-30 [facility] Comment on above: Order Comment: 107-1 Performed By: #### L 400.0001, M100.0 #### [facility] Laboratory [address] [place], [place], [id number] Erythrocyte sedimentation ra teOrdered By: Mario Mak on 04-01-2025 ESR (Bld) [Velocity] 14 mm/h 0-30 [facility] Serum or plasma C reactive p rotein measurement (mass/volume)Ordered By: Mario Mak on 04-01-2025 CRP [Mass/Vol] mg/L 0.0-3.0 [facility] Hemoglobin A1c percentageOrd ered By: Mario Mak on 03-12-2025 HbA1c (Bld) [Mass fraction] 7.4 % High <=5.6 [facility] Comment on above: Normal < 5.7 % Predi abetic 5.7 - 6.4 % Diabetic >or= 6.5 % Please note range changes. Order Comment: 107-1 CLEAN CATCH Result Comment: Norm al < 5.7 % Prediabetic 5.7 - 6.4 % Diabetic >or= 6.5 % Please note range changes. Performed By: #### L 400.0001, M1.0 #### [facility] Laboratory [address] [place], [place], [id number] CRPon 03-04-2025 C-REACTIVE PROT < 3.00 Normal 0.0-3.0 [facility] Comment on above: Order Comment: 107.1 Performed By: #### L 501.6710, L101.9900 #### [facility] Laboratory [address] [place], [place], [address] Erythrocyte Sed Rateon 03-04 SED RATE 12 mm/hr Normal 0-30 [facility] Comment on above: Order Comment: 107.1 Performed By: #### L 501.6710, L101.9900 #### [facility] [address] [place], [address] Erythrocyte sedimentation ra teOrdered By: Mario Mak on 03-04-2025 ESR (Bld) [Velocity] 12 mm/h 0-30 [facility] Serum or plasma C reactive p rotein measurement (mass/volume)Ordered By: Mario Mak on 03-04-2025 CRP [Mass/Vol] mg/L 0.0-3.0 [facility] DRAKEN Telephone ([employer]) YUSUF MEDINA ([id number]) 1935 [facility] Date Time Provider Department 02/11/25 TYESHA SINGLETON During your visit today, we recorded the following information about you: Lidia Carbajal LPN 02/11/2025 1:00 PM Signed Received results of labs done on 02/04/2025 from [facility] (abnormal results in bold): sed rate [...] this patient by: CAREGIVER José Miguel Swanson [facility] Problem List As Of Date 02/11/2025 [...] arthritis [M16.10] (more content not included)... Normal [facility] CRPon 02-04-2025 C-REACTIVE PROT < 3.00 Normal 0.0-3.0 [facility] Comment on above: Order Comment: 107-1 CLEAN CATCH Performed By: #### L 400.0001, M100.0 #### [facility] Laboratory [address] [place], [place], [id number] CRP [Mass/Vol]Ordered By: Moreno on 02-04-2025 C-Reactive Protein Extended Range < 3.00 mg/L 0.0-3.0 [facility] Erythrocyte Sed Rateon 02-04 SED RATE 23 mm/hr Normal 0-30 [facility] Comment on above: Order Comment: 107-1 CLEAN CATCH Performed By: #### L 400.0001, M100.2200 #### [facility] [address] [place], [place], [id number] Erythrocyte sedimentation ra teOrdered By: Mario Mak on 02-04-2025 ESR (Bld) [Velocity] 23 mm/h 0-30 [facility] Serum or plasma C reactive p rotein measurement (mass/volume)Ordered By: Mario Mak on 02-04-2025 CRP [Mass/Vol] mg/L 0.0-3.0 [facility] CNOVon 01-16-2025 CNOV Normal [facility] Absolute lymphocyte countOrd ered By: Mario Mak on 01-15-2025 Lymphocytes Auto (Unsp spec) [#/Vol] 1.16 10*3/uL 0.83-4.51 [facility] Absolute neutrophil countOrd ered By: Mario Mak on 01-15-2025 Neutrophils (Bld) [#/Vol] 5.9 10*3/uL 2.0-7.7 [facility] Anion gap in Serum or Plasma Ordered By: Mario Mak on 01-15-2025 Anion gap [Moles/Vol] 12 mmol/L 5-15 [facility] Automated lymphocyte count a s percentage of total leukocytesOrdered By: Mario Mak on 01-15-2025 Lymphocytes/100 WBC Auto (Unsp spec) 14.3 % Low 19-41 [facility] BUN/creatinine ratioOrdered By: Mario Mak on 01-15-2025 Urea nitrogen/Creatinine [Mass ratio] 35.3 mg/mg High 10-20 [facility] Basic Metabolic Profile (BMP )on 01-15-2025 BUN/CRE 35.3 RATIO High 10-20 [facility] Comment on above: Order Comment: 107.1 Performed By: #### L 501.6710, L101.9900 #### [facility] Laboratory [address] [place], [address] Calcium [Mass/Vol] 9.1 mg/dL Normal 7.6-11.0 [facility] Comment on above: Order Comment: 107.1 Performed By: #### L 501.6710, L101.9900 #### [facility] Laboratory [address] [place], [address] Chloride [Moles/Vol] 101 mmol/L Normal 98-108 [facility] Comment on above: Order Comment: 107.1 Performed By: #### L [id number], L101.9900 #### [facility] [address] [place], [address] CO2 [Moles/Vol] 26.0 mmol/L Normal 21.0-32.0 [facility] Comment on above: Order Comment: 107.1 Performed By: #### L 501.6710, L101.9900 #### [facility] Laboratory [address] [place], [address] Creatinine [Mass/Vol] 0.76 mg/dL Normal 0.70-1.20 [facility] Comment on above: Order Comment: 107.1 Performed By: #### L 501.6710, [id number] #### [facility] [address] [place], [address] GAP 12 Normal 5-15 [facility] Comment on above: Order Comment: 107.1 Performed By: #### L [id number], [id number] #### [facility] [address] [place], [address] GFR/1.73 sq M.predicted among non-blacks MDRD (S/P/Bld) [Vol rate/Area] 75 mL/min/{1.73_m2} Normal >60 [facility] Comment on above: Order Comment: 107.1 Result Comment: mL/m in/1.73m2 CKD-EPI Creatinine Equation (2020) Performed By: #### L 501.6710, L101.9900 #### [facility] [address] [place], [address] Glucose [Mass/Vol] 108 mg/dL High 70-99 [facility] Comment on above: Order Comment: 107.1 Performed By: #### L [id number], L101.9900 #### [facility] [address] [place], [address] Potassium [Moles/Vol] 4.6 mmol/L Normal 3.3-5.1 [facility] Comment on above: Order Comment: 107.1 Performed By: #### L 501.6710, [id number] #### [facility] [address] [place], [address] Sodium [Moles/Vol] 139 mmol/L Normal 133-145 [facility] Comment on above: Order Comment: 107.1 Performed By: #### L 501.6710, L101.9900 #### [facility] [address] [place], [address] Urea nitrogen [Mass/Vol] 27 mg/dL High 4-19 [facility] Comment on above: Order Comment: 107.1 Performed By: #### L 501.6710, [id number] #### [facility] [address] [place], [address] Basophil percentageOrdered B y: Mario Depshanell on 01-15-2025 Basophils/100 WBC (Bld) 0.5 % 0-1 [facility] CBC W/Diff, Automatedon - Absolute Lymph 1.16 X10 3/uL Normal 0.83-4.51 [facility] Comment on above: Order Comment: 107.1 Performed By: #### L [id number], [id number] #### [facility] [address] [place], [address] Absolute Neut 5.9 X10 3/uL Normal 2.0-7.7 [facility] Comment on above: Order Comment: 107.1 Performed By: #### L [id number], L101.9900 #### [facility] [address] [place], [address] Basophils/100 WBC (Bld) 0.5 % Normal 0-1 [facility] Comment on above: Order Comment: 107.1 Performed By: #### L [id number], [id number] #### [facility] [address] [place], [address] Eosinophils/100 WBC (Bld) 4.1 % Normal 0-5 [facility] Comment on above: Order Comment: 107.1 Performed By: #### L [id number], [id number] #### [facility] [address] [place], [address] Erythrocyte distribution width (RBC) [Ratio] 16.0 % High 11.6-14.6 [facility] Comment on above: Order Comment: 107.1 Performed By: #### L [id number], [id number] #### [facility] [address] [place], [address] Hematocrit (Bld) [Volume fraction] 29.0 % Low 37-47 [facility] Comment on above: Order Comment: 107.1 Performed By: #### L [id number], [id number] #### [facility] [address] [place], [address] Hemoglobin (Bld) [Mass/Vol] 9.4 g/dL Low 12.0-15.0 [facility] Comment on above: Order Comment: 107.1 Performed By: #### L [id number], [id number] #### [facility] [address] [place], [address] IG% 1.100 High 0.0-0.9 [facility] Comment on above: Order Comment: 107.1 Result Comment: IG% - Immature Granulocytes (promyelocytes, myelocytes and metamyelocytes) > 1% indicates that a LEFT SHIFT is Present. Performed By: #### L 501.6710, L101.9900 #### [facility] [address] [place], [address] Lymphocytes/100 WBC (Bld) 14.3 % Low 19-41 [facility] Comment on above: Order Comment: 107.1 Performed By: #### L [id number], [id number] #### [facility] [address] [place], [address] MCH (RBC) [Entitic mass] 29.5 pg Normal 27.0-32.0 [facility] Comment on above: Order Comment: 107.1 Performed By: #### L [id number], [id number] #### [facility] [address] [place], [address] MCHC (RBC) [Mass/Vol] 32.4 g/dL Normal 32-36 [facility] Comment on above: Order Comment: 107.1 Performed By: #### L [id number], L101.9900 #### [facility] [address] [place], [address] MCV (RBC) [Entitic vol] 90.9 fL Normal 81-99 [facility] Comment on above: Order Comment: 107.1 Performed By: #### L 501.10, L101.9900 #### [facility] [address] [place], [address] Monocytes/100 WBC (Bld) 8.1 % Normal 0-10 [facility] Comment on above: Order Comment: 107.1 Performed By: #### L [id number], [id number] #### [facility] [address] [place], [address] Neutrophils/100 WBC (Bld) 71.9 % High 47-70 [facility] Comment on above: Order Comment: 107.1 Performed By: #### L [id number], [id number] #### [facility] [address] [place], [address] Nucleated RBC (Bld) [#/Vol] 0 10*3/uL Normal 0-5 [facility] Comment on above: Order Comment: 107.1 Performed By: #### L [id number], L101.9900 #### [facility] [address] [place], [address] Platelet mean volume (Bld) [Entitic vol] 9.4 fL Normal 6.2-12.0 [facility] Comment on above: Order Comment: 107.1 Performed By: #### L [id number], L101.9900 #### [facility] Laboratory [address] [place], [address] Platelets (Bld) [#/Vol] 390 10*3/uL Normal 150-450 [facility] Comment on above: Order Comment: 107.1 Performed By: #### L [id number], L101.9900 #### [facility] [address] [place], [address] RBC (Bld) [#/Vol] 3.19 10*6/uL Low 4.2-5.4 [facility] Comment on above: Order Comment: 107.1 Performed By: #### L [id number], L101.9900 #### [facility] [address] [place], [address] RDW SD 53.4 fl High 35.1-43.9 [facility] Comment on above: Order Comment: 107.1 Performed By: #### L [id number], [id number] #### [facility] [address] [place], [address] WBC (Bld) [#/Vol] 8.1 10*3/uL Normal 4.4-11.0 [facility] Comment on above: Order Comment: 107.1 Performed By: #### L 501.6710, L101.9900 #### [facility] [address] [place], [address] Carbon dioxide, total [Moles /volume] in Central venous bloodOrdered By: Mario Mak on 01-15-2025 CO2 [Moles/Vol] 26.0 mmol/L 21.0-32.0 [facility] Chloride assayOrdered By: Moreno on 01-15-2025 Chloride [Moles/Vol] 101 mmol/L 98-108 [facility] Eosinophil percentageOrdered By: Mario Mka on 01-15-2025 Eosinophils/100 WBC (Bld) 4.1 % 0-5 [facility] Erythrocyte distribution wid th (RBC) [Ratio]Ordered By: Mario Mak on 01-15-2025 Erythrocyte distribution width (RBC) [Entitic vol] 53.4 fL High 35.1-43.9 [facility] Erythrocyte distribution wid th ratioOrdered By: Mario Mak on 01-15-2025 Erythrocyte distribution width (RBC) [Ratio] 16.0 % High 11.6-14.6 [facility] Erythrocyte distribution wid th standard deviationOrdered By: Mario Mak on 01-15-2025 Erythrocyte distribution width (RBC) [Ratio] 53.4 fl High 35.1-43.9 [facility] GFR/1.73 sq M.predicted ida g non-blacks MDRD (S/P/Bld) [Vol rate/Area]Ordered By: Mario Mak on 01-15-2025 Estimated GFR (MDRD) Non-Af Amer 75 >60 [facility] Comment on above: mL/min/1.73m2 CKD-EP I Creatinine Equation (2020) Glomerular filtration rate ( GFR) estimation/1.73 sq m using serum, plasma, or whole bOrdered By: Mario Mak on 01-15-2025 GFR/1.73 sq M.predicted among non-blacks MDRD (S/P/Bld) [Vol rate/Area] 75 mL/min/{1.73_m2} >60 [facility] Comment on above: mL/min/1.73m2 CKD-EP I Creatinine Equation (2020) Hematocrit Auto (Bld) [Volum e fraction]Ordered By: Mario Mak on 01-15-2025 Hematocrit (Bld) [Volume fraction] 29.0 % Low 37-47 [facility] Hemoglobin measurementOrdere d By: Mario Mak on 01-15-2025 Hemoglobin (Bld) [Mass/Vol] 9.4 g/dL Low 12.0-15.0 [facility] Immature granulocytes/100 WB C Auto (Bld)Ordered By: Mario Mak on 01-15-2025 Immature granulocytes/100 WBC (Bld) 1.100 % High 0.0-0.9 [facility] Comment on above: IG% - Immature Granu locytes (promyelocytes, myelocytes and metamyelocytes) > 1% indicates that a LEFT SHIFT is Present. Lymphocytes Auto (Unsp spec) [#/Vol]Ordered By: Mario Mak on 01-15-2025 Lymphocytes (Bld) [#/Vol] 1.16 10*3/uL 0.83-4.51 [facility] Lymphocytes/100 WBC Auto (Un sp spec)Ordered By: Mario Mak on 01-15-2025 Lymphocytes/100 WBC (Bld) 14.3 % Low 19-41 [facility] MCV (mean corpuscular volume ) determinationOrdered By: Mario Mak on 01-15-2025 MCV (RBC) [Entitic vol] 90.9 fL 81-99 [facility] Mean corpuscular hemoglobin (MCH) determinationOrdered By: Mario Mak on 01-15-2025 MCH (RBC) [Entitic mass] 29.5 pg 27.0-32.0 [facility] Mean corpuscular hemoglobin concentration (MCHC) determinationOrdered By: Mario Mak on 01-15-2025 MCHC (RBC) [Mass/Vol] 32.4 g/dL 32-36 [facility] Mean platelet volume determi nationOrdered By: Mario Mak on 01-15-2025 Platelet mean volume (Bld) [Entitic vol] 9.4 fL 6.2-12.0 [facility] Monocyte percentageOrdered B y: Mario Mak on 01-15-2025 Monocytes/100 WBC (Bld) 8.1 % 0-10 [facility] Neutrophil percentageOrdered By: Mario Mak on 01-15-2025 Neutrophils/100 WBC (Bld) 71.9 % High 47-70 [facility] Nucleated red blood cell per centageOrdered By: Mario Mak on 01-15-2025 Nucleated RBC/100 WBC (Bld) [Ratio] 0 % 0-5 [facility] Platelet countOrdered By: Moreno on 01-15-2025 Platelets (Bld) [#/Vol] 390 10*3/uL 150-450 [facility] Potassium (Unsp spec) [Mass/ Vol]Ordered By: Mario Mak on 01-15-2025 Potassium [Moles/Vol] 4.6 mmol/L 3.3-5.1 [facility] Potassium measurement (mass/ volume)Ordered By: Mario Mak on 01-15-2025 Potassium (Unsp spec) [Mass/Vol] 4.6 mmol/L 3.3-5.1 [facility] RBC Auto (Bld) [#/Vol]Ordere d By: Mario Mak on 01-15-2025 RBC (Bld) [#/Vol] 3.19 10*6/uL Low 4.2-5.4 [facility] Serum creatinine measurement (mass/volume)Ordered By: Mario Mak on 01-15-2025 Creatinine [Mass/Vol] 0.76 mg/dL 0.70-1.20 [facility] Serum glucose measurement (m ass/volume)Ordered By: Mario Mak on 01-15-2025 Glucose [Mass/Vol] 108 mg/dL High 70-99 [facility] Serum or plasma calcium roma urement (mass/volume)Ordered By: Mario Mak on 01-15-2025 Calcium [Mass/Vol] 9.1 mg/dL 7.6-11.0 [facility] Serum or plasma urea nitroge n measurement (mass/volume)Ordered By: Mario Mak on 01-15-2025 Urea nitrogen [Mass/Vol] 27 mg/dL High 4-19 [facility] Sodium levelOrdered By: Mario Mak on 01-15-2025 Sodium [Moles/Vol] 139 mmol/L 133-145 [facility] White blood cell (WBC) count Ordered By: Mario Mak on 01-15-2025 WBC (Bld) [#/Vol] 8.1 10*3/uL 4.4-11.0 [facility] CNOVon 01-08-2025 CNOV Normal [facility] Absolute lymphocyte countOrd ered By: Mario Mak on 01-07-2025 Lymphocytes Auto (Unsp spec) [#/Vol] 0.98 10*3/uL 0.83-4.51 [facility] Absolute neutrophil countOrd ered By: Mario Mak on 01-07-2025 Neutrophils (Bld) [#/Vol] 5.7 10*3/uL 2.0-7.7 [facility] Albumin to globulin ratioOrd ered By: Mario Mak on 01-07-2025 Albumin/Globulin [Mass ratio] 0.6 {ratio} Low 0.9-2.4 [facility] Automated lymphocyte count a s percentage of total leukocytesOrdered By: Mario Mak on 01-07-2025 Lymphocytes/100 WBC Auto (Unsp spec) 12.6 % Low 19-41 [facility] Basophil percentageOrdered B y: Mario Mak on 01-07-2025 Basophils/100 WBC (Bld) 0.5 % 0-1 [facility] Bilirubin, totalOrdered By: Mario Mak on 01-07-2025 Bilirubin [Mass/Vol] 0.20 mg/dL 0.20-1.00 [facility] Comment on above: For patients on eltr ombopag therapy, use of [employer] [place] TBIL is not recommended. Blood urea nitrogen (BUN)/cr eatinine ratioOrdered By: Mario Mak on 01-07-2025 Urea nitrogen/Creatinine [Mass ratio] 37.0 mg/mg High 10-20 [facility] CBC W/Diff, Automatedon 12-16 Absolute Lymph 0.98 X10 3/uL Normal 0.83-4.51 [facility] Comment on above: Order Comment: 107.1 Performed By: #### L 501.6710, L101.9900 #### [facility] [address] [place], [place], [id number] Absolute Neut 5.7 X10 3/uL Normal 2.0-7.7 [facility] Comment on above: Order Comment: 107.1 Performed By: #### L [id number], L101.9900 #### [facility] [address] [place], [address] Basophils/100 WBC (Bld) 0.5 % Normal 0-1 [facility] Comment on above: Order Comment: 107.1 Performed By: #### L [id number], [id number] #### [facility] [address] [place], [address] Eosinophils/100 WBC (Bld) 3.2 % Normal 0-5 [facility] Comment on above: Order Comment: 107.1 Performed By: #### L [id number], [id number] #### [facility] [address] [place], [address] Erythrocyte distribution width (RBC) [Ratio] 16.5 % High 11.6-14.6 [facility] Comment on above: Order Comment: 107.1 Performed By: #### L 501.10, [id number] #### [facility] [address] [place], [address] Hematocrit (Bld) [Volume fraction] 28.5 % Low 37-47 [facility] Comment on above: Order Comment: 107.1 Performed By: #### L 501.10, [id number] #### [facility] [address] [place], [address] Hemoglobin (Bld) [Mass/Vol] 8.9 g/dL Low 12.0-15.0 [facility] Comment on above: Order Comment: 107.1 Performed By: #### L [id number], L101.9900 #### [facility] [address] [place], [address] IG% 0.600 Normal 0.0-0.9 [facility] Comment on above: Order Comment: 107.1 Result Comment: IG% - Immature Granulocytes (promyelocytes, myelocytes and metamyelocytes) > 1% indicates that a LEFT SHIFT is Present. Performed By: #### L 501.6710, L101.9900 #### [facility] [address] [place], [address] Lymphocytes/100 WBC (Bld) 12.6 % Low 19-41 [facility] Comment on above: Order Comment: 107.1 Performed By: #### L 501.6710, L101.9900 #### [facility] [address] [place], [address] MCH (RBC) [Entitic mass] 28.7 pg Normal 27.0-32.0 [facility] Comment on above: Order Comment: 107.1 Performed By: #### L [id number], L101.9900 #### [facility] [address] [place], [address] MCHC (RBC) [Mass/Vol] 31.2 g/dL Low 32-36 [facility] Comment on above: Order Comment: 107.1 Performed By: #### L [id number], [id number] #### [facility] [address] [place], [address] MCV (RBC) [Entitic vol] 91.9 fL Normal 81-99 [facility] Comment on above: Order Comment: 107.1 Performed By: #### L [id number], [id number] #### [facility] [address] [place], [address] Monocytes/100 WBC (Bld) 9.9 % Normal 0-10 [facility] Comment on above: Order Comment: 107.1 Performed By: #### L 501.6710, [id number] #### [facility] [address] [place], [address] Neutrophils/100 WBC (Bld) 73.2 % High 47-70 [facility] Comment on above: Order Comment: 107.1 Performed By: #### L [id number], [id number] #### [facility] [address] [place], [address] Nucleated RBC (Bld) [#/Vol] 0 10*3/uL Normal 0-5 [facility] Comment on above: Order Comment: 107.1 Performed By: #### L [id number], [id number] #### [facility] [address] [place], [address] Platelet mean volume (Bld) [Entitic vol] 9.8 fL Normal 6.2-12.0 [facility] Comment on above: Order Comment: 107.1 Performed By: #### L [id number], L101.9900 #### [facility] [address] [place], [address] Platelets (Bld) [#/Vol] 319 10*3/uL Normal 150-450 [facility] Comment on above: Order Comment: 107.1 Performed By: #### L 501.6710, L101.9900 #### [facility] [address] [place], [address] RBC (Bld) [#/Vol] 3.10 10*6/uL Low 4.2-5.4 [facility] Comment on above: Order Comment: 107.1 Performed By: #### L 501.6710, L101.9900 #### [facility] [address] [place], [address] RDW SD 56.5 fl High 35.1-43.9 [facility] Comment on above: Order Comment: 107.1 Performed By: #### L 501.6710, L101.9900 #### [facility] [address] [place], [address] WBC (Bld) [#/Vol] 7.8 10*3/uL Normal 4.4-11.0 [facility] Comment on above: Order Comment: 107.1 Performed By: #### L 501.6710, L101.9900 #### [facility] [address] [place], [address] Carbon dioxide measurementOr dered By: Mario Mak on 01-07-2025 CO2 [Moles/Vol] 28.0 mmol/L 21.0-32.0 [facility] Chloride measurementOrdered By: Mario Mak on 01-07-2025 Chloride [Moles/Vol] 105 mmol/L 98-107 [facility] Comprehensive Metabolic Prof ilon 01-07-2025 Albumin [Mass/Vol] 2.1 g/dL Low 3.2-5.0 [facility] Comment on above: Performed By: #### L 501.6710, L101.9900 #### [facility] [address] [place], [address] Albumin/Globulin [Mass ratio] 0.6 {ratio} Low 0.9-2.4 [facility] Comment on above: Performed By: #### L 501.6710, L101.9900 #### [facility] [address] [place], [address] ALK P 95 U/L Normal 45-117 [facility] Comment on above: Performed By: #### L 501.6710, L101.9900 #### [facility] [address] [place], [address] ALT [Catalytic activity/Vol] U/L Low 13-56 [facility] Comment on above: Performed By: #### L 501.6710, L101.9900 #### [facility] [address] [place], [address] AST [Catalytic activity/Vol] 21 U/L Normal 15-37 [facility] Comment on above: Performed By: #### L 501.6710, L101.9900 #### [facility] [address] [place], [address] Bilirubin [Mass/Vol] 0.20 mg/dL Normal 0.20-1.00 [facility] Comment on above: Result Comment: For patients on eltrombopag therapy, use of Dimension [place] TBIL is not recommended. Performed By: #### L 501.6710, L101.9900 #### [facility] [address] [place], [address] BUN/CRE 37.0 RATIO High 10-20 [facility] Comment on above: Performed By: #### L 501.6710, L101.9900 #### [facility] [address] [place], [address] CA,Total 8.6 mg/dL Normal 8.5-10.1 [facility] Comment on above: Performed By: #### L 501.6710, L101.9900 #### [facility] [address] [place], [address] Chloride [Moles/Vol] 105 mmol/L Normal 98-107 [facility] Comment on above: Performed By: #### L 501.6710, L101.9900 #### [facility] [address] [place], [address] CO2 [Moles/Vol] 28.0 mmol/L Normal 21.0-32.0 [facility] Comment on above: Performed By: #### L 501.6710, L101.9900 #### [facility] [address] [place], [address] Creatinine [Mass/Vol] 0.76 mg/dL Normal 0.55-1.02 [facility] Comment on above: Result Comment: The validity of the calculated GFR GFRAA in patients over 70 years has not been determined. Clinical correlation is essential. Performed By: #### L 501.6710, L101.9900 #### [facility] [address] [place], [address] EST GFR - AA 93 mL/min Normal >60 [facility] Comment on above: Result Comment: Afri can Citizen [place] GFR Calc Performed By: #### L 501.6710, L101.9900 #### [facility] [address] [place], [address] GAP 7 Normal 5-15 [facility] Comment on above: Performed By: #### L 501.6710, L101.9900 #### [facility] [address] [place], [address] GFR/1.73 sq M.predicted among non-blacks MDRD (S/P/Bld) [Vol rate/Area] 77 mL/min/{1.73_m2} Normal >60 [facility] Comment on above: Result Comment: Non- GFR Calc Performed By: #### L 501.6710, L101.9900 #### [facility] [address] [place], [address] Globulin (S) [Mass/Vol] 3.4 g/dL Normal 2.2-4.2 [facility] Comment on above: Performed By: #### L 501.6710, L101.9900 #### [facility] [address] [place], [address] Glucose [Mass/Vol] 58 mg/dL Low 74-106 [facility] Comment on above: Performed By: #### L 501.6710, L101.9900 #### [facility] [address] [place], [address] Potassium [Moles/Vol] 4.1 mmol/L Normal 3.5-5.1 [facility] Comment on above: Performed By: #### L 501.6710, L101.9900 #### [facility] [address] [place], [address] Sodium [Moles/Vol] 139 mmol/L Normal 136-145 [facility] Comment on above: Performed By: #### L 501.6710, L101.9900 #### [facility] [address] [place], [address] T PROT 5.5 g/dL Low 6.4-8.2 [facility] Comment on above: Performed By: #### L 501.6710, L101.9900 #### [facility] [address] [place], [address] Urea nitrogen [Mass/Vol] 28 mg/dL High 7-18 [facility] Comment on above: Performed By: #### L 501.6710, L101.9900 #### [facility] [address] [place], [address] Eosinophil percentageOrdered By: Mario Mak on 01-07-2025 Eosinophils/100 WBC (Bld) 3.2 % 0-5 [facility] Erythrocyte Sed Rateon 01-07 SED RATE 41 mm/hr High 0-30 [facility] Comment on above: Order Comment: 107.1 Performed By: #### L 501.6710, L101.9900 #### [facility] [address] [place], [place], [address] Erythrocyte distribution wid th (RBC) [Ratio]Ordered By: Mario Mak on 01-07-2025 Erythrocyte distribution width (RBC) [Entitic vol] 56.5 fL High 35.1-43.9 [facility] Erythrocyte distribution wid th ratioOrdered By: Mario Mak on 01-07-2025 Erythrocyte distribution width (RBC) [Ratio] 16.5 % High 11.6-14.6 [facility] Erythrocyte distribution wid th standard deviationOrdered By: Mario Mak on 01-07-2025 Erythrocyte distribution width (RBC) [Ratio] 56.5 fl High 35.1-43.9 [facility] Erythrocyte sedimentation ra teOrdered By: Mario Mak on 01-07-2025 ESR (Bld) [Velocity] 41 mm/h High 0-30 [facility] Estimated glomerular filtrat ion rate (GFR) AmericanOrdered By: Mario Mak on 01-07-2025 Estimated GFR (MDRD) Amer 93 mL/min >60 [facility] Comment on above: GFR Calc Glomerular filtration rate ( GFR) estimationOrdered By: Mario Mak on 01-07-2025 Estimated GFR (MDRD) Non-Af Amer 77 mL/min >60 [facility] Comment on above: Non- GFR Calc GFR/1.73 sq M.predicted among non-blacks MDRD (S/P/Bld) [Vol rate/Area] 77 mL/min/{1.73_m2} >60 [facility] Comment on above: Non- GFR Calc Glucose measurementOrdered B y: Mario Mak on 01-07-2025 Glucose [Mass/Vol] 58 mg/dL Low 74-106 [facility] Hematocrit Auto (Bld) [Volum e fraction]Ordered By: Mario Mak on 01-07-2025 Hematocrit (Bld) [Volume fraction] 28.5 % Low 37-47 [facility] Hemoglobin measurementOrdere d By: Mario Mak on 01-07-2025 Hemoglobin (Bld) [Mass/Vol] 8.9 g/dL Low 12.0-15.0 [facility] Immature granulocytes/100 WB C Auto (Bld)Ordered By: Mario Mka on 01-07-2025 Immature granulocytes/100 WBC (Bld) 0.600 % 0.0-0.9 [facility] Comment on above: IG% - Immature Granu locytes (promyelocytes, myelocytes and metamyelocytes) > 1% indicates that a LEFT SHIFT is Present. Laboratory - Chemistry and C hemistry - challengeOrdered By: Mario Mak on 01-07-2025 AST [Catalytic activity/Vol] 21 U/L 15-37 [facility] Lymphocytes Auto (Unsp spec) [#/Vol]Ordered By: Mario Mak on 01-07-2025 Lymphocytes (Bld) [#/Vol] 0.98 10*3/uL 0.83-4.51 [facility] Lymphocytes/100 WBC Auto (Un sp spec)Ordered By: Mario Mak on 01-07-2025 Lymphocytes/100 WBC (Bld) 12.6 % Low 19-41 [facility] MCV (mean corpuscular volume ) determinationOrdered By: Mario Mak on 01-07-2025 MCV (RBC) [Entitic vol] 91.9 fL 81-99 [facility] Mean corpuscular hemoglobin (MCH) determinationOrdered By: Mario Mak on 01-07-2025 MCH (RBC) [Entitic mass] 28.7 pg 27.0-32.0 [facility] Mean corpuscular hemoglobin concentration (MCHC) determinationOrdered By: Mario Mak on 01-07-2025 MCHC (RBC) [Mass/Vol] 31.2 g/dL Low 32-36 [facility] Mean platelet volume determi nationOrdered By: Mario Mak on 01-07-2025 Platelet mean volume (Bld) [Entitic vol] 9.8 fL 6.2-12.0 [facility] Monocyte percentageOrdered B y: Mario Mak on 01-07-2025 Monocytes/100 WBC (Bld) 9.9 % 0-10 [facility] Neutrophil percentageOrdered By: Mario Mak on 01-07-2025 Neutrophils/100 WBC (Bld) 73.2 % High 47-70 [facility] Nucleated red blood cell per centageOrdered By: Mario Mak on 01-07-2025 Nucleated RBC/100 WBC (Bld) [Ratio] 0 % 0-5 [facility] Platelet countOrdered By: Moreno on 01-07-2025 Platelets (Bld) [#/Vol] 319 10*3/uL 150-450 [facility] Potassium measurementOrdered By: Mario Mak on 01-07-2025 Potassium [Moles/Vol] 4.1 mmol/L 3.5-5.1 [facility] RBC Auto (Bld) [#/Vol]Ordere d By: Mario Mak on 01-07-2025 RBC (Bld) [#/Vol] 3.10 10*6/uL Low 4.2-5.4 [facility] Serum anion gap measurementO rdered By: Mario Mak on 01-07-2025 Anion gap [Moles/Vol] 7 mmol/L 5-15 [facility] Serum globulin measurementOr dered By: Mario Mak on 01-07-2025 Globulin (S) [Mass/Vol] 3.4 g/dL 2.2-4.2 [facility] Serum or plasma alanine melara otransferase (ALT) measurementOrdered By: Mario Mak on 01-07-2025 ALT [Catalytic activity/Vol] U/L Low 13-56 [facility] Serum or plasma albumin roma urement (mass/volume)Ordered By: Mario Mak on 01-07-2025 Albumin [Mass/Vol] 2.1 g/dL Low 3.2-5.0 [facility] Serum or plasma alkaline krystal sphatase measurementOrdered By: Mario Mak on 01-07-2025 ALP [Catalytic activity/Vol] 95 U/L 45-117 [facility] Serum or plasma calcium roma urement (mass/volume)Ordered By: Mario Mak on 01-07-2025 Calcium [Mass/Vol] 8.6 mg/dL 8.5-10.1 [facility] Serum or plasma creatinine m easurement (mass/volume)Ordered By: Mario Mak on 01-07-2025 Creatinine [Mass/Vol] 0.76 mg/dL 0.55-1.02 [facility] Comment on above: The validity of the calculated GFR & GFRAA in patients over 70 years has not been determined. Clinical correlation is essential. Serum or plasma urea nitroge n measurement (mass/volume)Ordered By: Mario Mak on 01-07-2025 Urea nitrogen [Mass/Vol] 28 mg/dL High 7-18 [facility] Sodium levelOrdered By: Mario Mak on 01-07-2025 Sodium [Moles/Vol] 139 mmol/L 136-145 [facility] Total proteinOrdered By: Shwetha Mak on 01-07-2025 Protein [Mass/Vol] 5.5 g/dL Low 6.4-8.2 [facility] White blood cell (WBC) count Ordered By: Mario Mak on 01-07-2025 WBC (Bld) [#/Vol] 7.8 10*3/uL 4.4-11.0 [facility] Pyridoxine [Mass/Vol]on 12-16 Interpretation and review of laboratory results Abnormal [facility] VITAMIN B6/PYRIDOXINon 01-06 Pyridoxine [Mass/Vol] 13.8 nmol/L Low 20.0 - 125.0 nmol/L [facility] Comment on above: INTERPRETIVE INFORMA TION: Vitamin B6 (Pyridoxal 5-Phosphate) Pyridoxal 5'-phosphate measured in a specimen collected following an 8-hour or overnight fast accurately indicates vitamin B6 nutritional status. Non-fasting specimen concentration reflects recent vitamin intake. This test was developed and its performance characteristics determined by [facility]. It has not been cleared or approved by the [place] Food and Drug Administration. This test was performed in a CLIA certified laboratory and is intended for clinical purposes. Performed By: [facility] [address] [place] [address] Professor Of Genetics: Marcellus Raza MD, PhD CLIA Number: [id number] [facility] 01-04-2025 ROLANDO Office Visit (MARJORIE ) YUSUF MEDINA ([id number]) 1935 F [facility] [place] Date Time Provider Department 01/04/25 8:00 AM [...] with dramatic improvement Currently she is in [place] and here with AVELINA and nurse aid who gives the history Currently she is pain free Also spoke with her nurse at [place] who states patient does nto complain of pain, pretty sedentary. No specific complaints at [place] per nurse Currently doing well, no pain at present Family states after debridement of rt ankle- patient feels weak and does not want to walk around Was living alone until 2 months ago and now at [place]. Prior to debridement , patient was not [...] L REMV CATARACT EXTRACAP,INSERT LENS Bilateral 2020 [facility] predniSONE (DELTASONE) 5 mg tablet Take [...] by mouth (more content not included)... Normal [facility] Arti 01-03-2025 JACINTA Telephone (4CQ) YUSUF MEDINA ([id number]) 1935 F [place] Date Time Provider Department 01/03/25 MIGDALIA CRAMER 4CQ During your visit today, we recorded the following information about you: Alicia Coffey 01/03/2025 12:30 PM Addendum Received call from [facility]. The retail account representative has appointment with patient's sons this afternoon at 2 pm and is requesting Advanced Directive/POA paperwork that was scanned in on 12/31. Advised to send records request, but she is concerned about not having this paperwork by 2 pm meeting. Fastener Sewing Machine Operator can be reached at [phone]. Fax number given for records request as well. Jame Tam MA 01/03/2025 4:16 PM Signed Records release was not signed. Please review and advice. Willie Kaur APRN.DRAKE 01/04/2025 9:45 AM Signed Please advise [facility] that if patient signs record release, they can get any records they need from [facility] medical records. Or family can sign record request at alf and alf can fax Family Medicine the records request and I can send what I can. Our fax is [phone]. Willie Kaur APRN.Keke Page RN 01/04/2025 12:12 PM Signed Spoke with a unit secretary at [facility], he took the info again to get us a signed records release faxed to the office. Please watch for fax Willie Kaur APRN.DRAKE 01/04/2025 4:20 PM Signed The initial note indicates that a "retail account representative" is calling and gave return phone number [phone]. I called this number and phone rang and rang numerous times. No voice mail. I can print of POA, stamp and fax since this is a facility to facility request. Given to nursing. If the "retail account representative" needs anything else and calls back, Please ask for name and direct line so that return call can be made. Thank you. Willie Kaur APRN.DRAKE Tim ChristiansonRIGOBERTO colvin 01/04/2025 4:29 PM Signed Received record release from [facility]. Faxed to number provided on form, [...] this patient by: CAREGIVER José Miguel Swanson [facility] Problem List As Of Date 01/03/2025 Noted Resolved Osteoarth NOS-other site [M19.90] 09/15/2011 BENIGN HYPERTENSION [I10] 12/01/2016 Diabetes mellitus (HCC) [E11.9] 04/10/2003 Esophageal reflux [K21.9] 06/15/2006 Lumbago [M54.50] 05/31/2007 09/15/2011 Urgency of urination [R39.15] (more content not included)... Normal [facility] COPPER BLOODon 01-03-2025 Copper [Mass/Vol] 128 ug/dL 80 - 155 ug/dL [facility] Comment on above: This test was deviselao ped, and its performance characteristics determined by the [facility] Department of Pathology and Laboratory Medicine. It has not been cleared or approved by the FDA. The [facility] Department of Pathology and Laboratory Medicine is regulated under CLIA as qualified to perform high-complexity testing. This test is used for clinical purposes. It should not be regarded as investigational or for research. Interpretation and review of laboratory results Normal [facility] FERRITINon 01-03-2025 Ferritin [Mass/Vol] 865 ng/mL High 14.7 - 2 05.1 ng/mL [facility] FOLATE, SERUMon 01-03-2025 Folate [Mass/Vol] 14.8 ng/mL 4.7 - PINF ng/mL [facility] Ferritin [Mass/Vol]on 2024 Interpretation and review of laboratory results Abnormal [facility] Iron and Iron binding capaci ty panelon 01-03-2025 Interpretation and review of laboratory results Normal [facility] Iron [Mass/Vol] 46 ug/dL 41 - 186 ug/dL [facility] Iron binding capacity [Mass/Vol] 245 ug/dL 232 - 386 ug/dL [facility] Iron/TIBC [Molar ratio] 18.8 % 15.0 - 57.0 % [facility] No Panel InformationOrdered By: Ok Mederos on 01-03-2025 [facility] No Panel Informationon 01-03 Interpretation and review of laboratory results Normal [facility] VITAMIN B12on 01-03-2025 Cobalamin (Vitamin B12) [Mass/Vol] 582 pg/mL 232 - 1245 pg/mL [facility] ZINC BLDOrdered By: Ok da silva on 01-03-2025 Zinc [Mass/Vol] 56 ug/dL Low 60 - 120 ug/dL [facility] Comment on above: This test was deviselao ped, and its performance characteristics determined by the [facility] Department of Pathology and Laboratory Medicine. It has not been cleared or approved by the FDA. The [facility] Department of Pathology and Laboratory Medicine is regulated under CLIA as qualified to perform high-complexity testing. This test is used for clinical purposes. It should not be regarded as investigational or for research. Zinc [Mass/Vol]Ordered By: Ricardo Mederos on 01-03-2025 Interpretation and review of laboratory results Abnormal [facility] CBC W Auto Differential pane l (Bld)on 01-02-2025 Basophils (Bld) [#/Vol] 0.03 10*3/uL [facility] Basophils/100 WBC (Bld) 0.3 % C [facility] Differential cell count method Nom (Bld) Auto [facility] Eosinophils (Bld) [#/Vol] 0.3 10*3/uL [facility] Eosinophils/100 WBC (Bld) 2.9 % [facility] Erythrocyte distribution width (RBC) [Ratio] 17.2 % High 11.5 - 15.0 % [facility] Hematocrit (Bld) [Volume fraction] 34.1 % Low 36.0 - 46.0 % [facility] Hemoglobin (Bld) [Mass/Vol] 10.5 g/dL Low 11.5 - 15.5 g/dL [facility] Immature granulocytes (Bld) [#/Vol] 0.1 10*3/uL High NINF [facility] Immature granulocytes/100 WBC (Bld) 1 % [facility] Interpretation and review of laboratory results Abnormal [facility] Lymphocytes (Bld) [#/Vol] 0.78 10*3/uL Low [facility] Lymphocytes/100 WBC (Bld) 7.5 % [facility] MCH (RBC) [Entitic mass] 28.5 pg 26.0 - 34.0 pg [facility] MCHC (RBC) [Mass/Vol] 30.8 g/dL 30.5 - 36.0 g/dL [facility] MCV (RBC) [Entitic vol] 92.4 fL 80.0 - 100.0 fL [facility] Monocytes (Bld) [#/Vol] 0.61 10*3/uL [facility] Monocytes/100 WBC (Bld) 5.9 % C [facility] Neutrophils (Bld) [#/Vol] 8.56 10*3/uL High [facility] Neutrophils/100 WBC (Bld) 82.4 % [facility] Nucleated RBC (Bld) [#/Vol] [facility] Nucleated RBC/100 WBC (Bld) [Ratio] 0 % /100 WBC [facility] Platelet mean volume (Bld) [Entitic vol] 8.7 fL Low 9.0 - 12.7 fL [facility] Platelets (Bld) [#/Vol] 362 10*3/uL [facility] RBC (Bld) [#/Vol] 3.69 10*6/uL Low 3.90 - 5.2 0 m/uL [facility] WBC (Bld) [#/Vol] 10.38 10*3/uL [facility] Basophils (Bld) [#/Vol] 0.03 10*3/uL Normal <0.11 [facility] Comment on above: Order Comment: Speci men Type: BLOOD SPECIMENOrdering Facility: [facility] Address: [address] [place] [address] Performed By: #### 5 7021-8 ####[facility] [id number] [address] [place] Basophils/100 WBC (Bld) 0.3 % Normal [facility] Comment on above: Order Comment: Speci men Type: BLOOD SPECIMENOrdering Facility: [facility] Address: [address] [place] [address] Performed By: #### 5 7021-8 ####[facility] [id number] [place] [address] [place] Differential cell count method Nom (Bld) Auto Normal [facility] Comment on above: Order Comment: Speci men Type: BLOOD SPECIMENOrdering Facility: [facility] Address: [address] [place] [address] Performed By: #### 5 7021-8 ####[facility] [id number] [address] [place] Eosinophils (Bld) [#/Vol] 0.30 10*3/uL Normal <0.46 [facility] Comment on above: Order Comment: Speci men Type: BLOOD SPECIMENOrdering Facility: [facility] Address: [address] [place] [address] Performed By: #### 5 7021-8 ####[facility] [id number] [address] Eosinophils/100 WBC (Bld) 2.9 % Normal [facility] Comment on above: Order Comment: Speci men Type: BLOOD SPECIMENOrdering Facility: [facility] Address: [address] [place] [address] Performed By: #### 5 7021-8 ####[facility] [id number] [place] [address] [place] Erythrocyte distribution width (RBC) [Ratio] 17.2 % High 11.5-15.0 [facility] Comment on above: Order Comment: Speci men Type: BLOOD SPECIMENOrdering Facility: [facility] Address: [address] [place] [address] Performed By: #### 5 7021-8 ####[facility] [id number] [place] [address] [place] Hematocrit (Bld) [Volume fraction] 34.1 % Low 36.0-46.0 [facility] Comment on above: Order Comment: Speci men Type: BLOOD SPECIMENOrdering Facility: [facility] Address: [address] [place] [address] Performed By: #### 5 7021-8 ####[facility] [id number] [place] [address] [place] Hemoglobin (Bld) [Mass/Vol] 10.5 g/dL Low 11.5-15.5 [facility] Comment on above: Order Comment: Speci men Type: BLOOD SPECIMENOrdering Facility: [facility] Address: [address] [place] [address] Performed By: #### 5 7021-8 ####[facility] [id number] [place] [address] [place] Immature granulocytes (Bld) [#/Vol] 0.10 10*3/uL High <0.10 [facility] Comment on above: Order Comment: Speci men Type: BLOOD SPECIMENOrdering Facility: [facility] Address: [address] [place] [address] Performed By: #### 5 7021-8 ####[facility] [id number] [place] [address] [place] Immature granulocytes/100 WBC (Bld) 1.0 % Normal [facility] Comment on above: Order Comment: Speci men Type: BLOOD SPECIMENOrdering Facility: [facility] Address: [address] [place] [address] Performed By: #### 5 7021-8 ####[facility] [id number] [place] [address] [place] Lymphocytes (Bld) [#/Vol] 0.78 10*3/uL Low 1.00-4.00 [facility] Comment on above: Order Comment: Speci men Type: BLOOD SPECIMENOrdering Facility: [facility] Address: [address] [place] [address] Performed By: #### 5 7021-8 ####[facility]ADEN [facility] [id number] [address] Lymphocytes/100 WBC (Bld) 7.5 % Normal [facility] Comment on above: Order Comment: Speci men Type: BLOOD SPECIMENOrdering Facility: [facility] Address: [address] [place] [address] Performed By: #### 5 7021-8 ####[facility] [id number] [address] [place] MCH (RBC) [Entitic mass] 28.5 pg Normal 26.0-34.0 [facility] Comment on above: Order Comment: Speci men Type: BLOOD SPECIMENOrdering Facility: [facility] Address: [address] [place] [address] Performed By: #### 5 7021-8 ####[facility] [id number] [address] STATES [facility] MCHC (RBC) [Mass/Vol] 30.8 g/dL Normal 30.5-36.0 [facility] Comment on above: Order Comment: Speci men Type: BLOOD SPECIMENOrdering Facility: [facility] Address: [address] [place] [address] Performed By: #### 5 7021-8 ####[facility] [id number] [address] [place] MCV (RBC) [Entitic vol] 92.4 fL Normal 80.0-100.0 [facility] Comment on above: Order Comment: Speci men Type: BLOOD SPECIMENOrdering Facility: [facility] Address: [address] [place] [address] Performed By: #### 5 7021-8 ####[facility] [id number] [place] [address] [place] Monocytes (Bld) [#/Vol] 0.61 10*3/uL Normal <0.87 [facility] Comment on above: Order Comment: Speci men Type: BLOOD SPECIMENOrdering Facility: [facility] Address: [address] [place] [address] Performed By: #### 5 7021-8 ####[facility] [id number] [place] [address] [place] Monocytes/100 WBC (Bld) 5.9 % Normal [facility] Comment on above: Order Comment: Speci men Type: BLOOD SPECIMENOrdering Facility: [facility] Address: [address] [place] [address] Performed By: #### 5 7021-8 ####[facility] [id number] [place] [address] [place] Neutrophils (Bld) [#/Vol] 8.56 10*3/uL High 1.45-7.50 [facility] Comment on above: Order Comment: Speci men Type: BLOOD SPECIMENOrdering Facility: [facility] Address: [address] [place] [address] Performed By: #### 5 7021-8 ####[facility] [id number] [place] [address] [place] Neutrophils/100 WBC (Bld) 82.4 % Normal [facility] Comment on above: Order Comment: Speci men Type: BLOOD SPECIMENOrdering Facility: [facility] Address: [address] [place] [address] Performed By: #### 5 7021-8 ####[facility] [id number] [place] [address] [place] Nucleated RBC (Bld) [#/Vol] 10*3/uL Normal <0.01 [facility] Comment on above: Order Comment: Speci men Type: BLOOD SPECIMENOrdering Facility: [facility] Address: [address] [place] [address] Performed By: #### 5 7021-8 ####[facility] [id number] [place] [id number] [place] Nucleated RBC/100 WBC (Bld) [Ratio] 0.0 /100 WBC Normal [facility] Comment on above: Order Comment: Speci men Type: BLOOD SPECIMENOrdering Facility: [facility] Address: [address] [place] [address] Performed By: #### 5 7021-8 ####[facility] [id number] [place] [address] [place] Platelet mean volume (Bld) [Entitic vol] 8.7 fL Low 9.0-12.7 [facility] Comment on above: Order Comment: Speci men Type: BLOOD SPECIMENOrdering Facility: [facility] Address: [address] [place] [address] Performed By: #### 5 7021-8 ####[facility] [id number] [place] [address] [place] Platelets (Bld) [#/Vol] 362 10*3/uL Normal 150-400 [facility] Comment on above: Order Comment: Speci men Type: BLOOD SPECIMENOrdering Facility: [facility] Address: [address] [place] [address] Performed By: #### 5 7021-8 ####[facility] [id number] [place] [address] [place] RBC (Bld) [#/Vol] 3.69 10*6/uL Low 3.90-5.20 [facility] Comment on above: Order Comment: Speci men Type: BLOOD SPECIMENOrdering Facility: [facility] Address: [address] [place] [address] Performed By: #### 5 7021-8 ####[facility] [id number] [place] [address] [place] WBC (Bld) [#/Vol] 10.38 10*3/uL Normal 3.70-11.00 [facility] Comment on above: Order Comment: Speci men Type: BLOOD SPECIMENOrdering Facility: [facility] Address: [address] [place] [address] Performed By: #### 5 7021-8 ####[place] [facility] [id number] [address] [place] CNOVSPon 01-02-2025 CNOVSP Visit (SP) Office (HEMAST) YUSUF MEDINA ([id number]) 1935 [facility] Date Time Provider Department 01/02/25 8:30 AM [...] L REMV CATARACT EXTRACAP,INSERT LENS Bilateral 2020 [facility] FAMILY HISTORY Problem Relation Age of [...] daily. amLODI (more content not included)... Normal [facility] Arti 01-02-2025 DRAKEN Telephone (HEMAST) YUSUF MEDINA ([id number]) 1935 F [place] Date Time Provider Department 01/02/25 ADITI LOPEZ During your visit today, we recorded the following information about you: Aditi Lopez LISW 01/02/2025 4:03 PM Signed SOCIAL WORK Date of Service: Thursday January 02, 2025 [facility] Green (SW) Aditi Lopez attempted to contact Yusuf Medina by phone using peoplesoft consultant services to complete the distress assessment. Yusuf has been diagnosed with Normocytic anemia. She flagged for moderate depression on 12-31-24. 08/14/2018 11/21/2024 2024 PHQ-9 Score 9 13 12 SW spoke with Yusuf's family member Mercedes. She advised that Yusuf is in a shelter facility. Mercedes advised that she completed the questionnaire without the patient. She also noted that Yusuf will most likely not understand the Qat[place] peoplesoft consultant because she speaks a different dialect. At [...] this patient by: CAREGIVER José Miguel Swanson [facility] Problem List As Of Date 01/02/2025 [...] Osteoarth NOS-p (more content not included)... Normal [facility] CONFIRM BLOOD TYPEon 025 ABO group Nom (Bld) O [facility] Rh Nom (Bld) Positive [facility] ABO O Normal [facility] Comment on above: Order Comment: Speci men Type: BLOOD SPECIMENOrdering Facility: [facility] Address: [address] [place] [address] Performed By: #### C ONABO ####[facility]ANKCLIA [id number] [place] [address] [place] Rh Nom (Bld) Positive Normal [facility] Comment on above: Order Comment: Speci men Type: BLOOD SPECIMENOrdering Facility: [facility] Address: [address] [place] [address] Performed By: #### C ONABO ####[facility] B[facility] BANKCLIA [id number] [address] [place] COPPER BLOODon 01-02-2025 Copper [Mass/Vol] 128 ug/dL Normal 80-155 [facility] Comment on above: Order Comment: Speci men Type: BLOOD SPECIMENOrdering Facility: [facility] Address: [address] [place] [address] Result Comment: This test was developed, and its performance characteristics determined by the [facility] Department of Pathology and Laboratory Medicine. It has not been cleared or approved by the FDA. The [facility] Department of Pathology and Laboratory Medicine is regulated under CLIA as qualified to perform high-complexity testing. This test is used for clinical purposes. It should not be regarded as investigational or for research. Performed By: #### 5 763-8, COPPER ####[facility] [id number] [address] STATES [facility] Comprehensive metabolic 2000 panelOrdered By: Aminta Lim on 01-02-2025 Albumin [Mass/Vol] 3.5 g/dL Low 3.9 - 4.9 g/dL [facility] ALP [Catalytic activity/Vol] 128 U/L High 34 - 123 U/L [facility] ALT [Catalytic activity/Vol] U/L Low 7 - 38 U/L [facility] Anion gap [Moles/Vol] 13 mmol/L 8 - 15 mmol/L [facility] AST [Catalytic activity/Vol] 15 U/L 13 - 35 U/L [facility] Bilirubin [Mass/Vol] 0.2 mg/dL 0.2 - 1 .3 mg/dL [facility] Calcium [Mass/Vol] 9.1 mg/dL 8.5 - 10. 2 mg/dL [facility] Chloride [Moles/Vol] 98 mmol/L 98 - 10 7 mmol/L [facility] CO2 [Moles/Vol] 26 mmol/L 22 - 30 mmol/L [facility] Creatinine [Mass/Vol] 0.82 mg/dL 0.58 - 0.96 mg/dL [facility] GFR/1.73 sq M.predicted among non-blacks MDRD (S/P/Bld) [Vol rate/Area] 68 mL/min/{1.73_m2} - PINF [facility] Comment on above: Estimated Glomerular Filtration Rate (eGFR) is calculated using the 202 CKD-EPI creatinine equation. This equation utilizes serum creatinine, sex, and age as parameters. The creatinine assay has traceable calibration to isotope dilution-mass spectrometry. Refer to KDIGO guidelines for clinical interpretation. In patients with unstable renal function, e.g. those with acute kidney injury, the eGFR may not accurately reflect actual GFR. Glucose [Mass/Vol] 276 mg/dL High 74 - 99 mg/dL [facility] Comment on above: The [place] Diabete s Association (ADA) provides guidance for [...] Standards of Medical Care in Diabetes 2016, [place] Diabetes Association. Diabetes Care. 2016.39(Suppl 1). Interpretation and review of laboratory results Abnormal [facility] Potassium [Moles/Vol] 5.1 mmol/L 3.7 - 5.1 mmol/L [facility] Protein [Mass/Vol] 5.9 g/dL Low 6.3 - 8.0 g/dL [facility] Sodium [Moles/Vol] 137 mmol/L 136 - 144 mmol/L [facility] Urea nitrogen [Mass/Vol] 29 mg/dL High 7 - 21 mg/dL [facility] Comprehensive metabolic 2000 panelon 01-02-2025 Albumin [Mass/Vol] 3.5 g/dL Low 3.9-4.9 [facility] Comment on above: Order Comment: Speci men Type: BLOOD SPECIMEN [facility] Address: [address] [place] [address] Performed By: #### 5 7021-8 #### [facility] CLIA [id number] [address] [place] [address] [place] ALP [Catalytic activity/Vol] 128 U/L High 34-123 [facility] Comment on above: Order Comment: Speci men Type: BLOOD SPECIMEN [facility] Address: [address] [place] [address] Performed By: #### 5 7021-8 #### [place] [facility] CLIA [id number] [place] ALT [Catalytic activity/Vol] U/L Low 7-38 [facility] Comment on above: Order Comment: Speci men Type: BLOOD SPECIMEN [facility] Address: [address] [place] [address] Performed By: #### 5 7021-8 #### [facility] CLIA [id number] [place] Anion gap [Moles/Vol] 13 mmol/L Normal 8-15 [facility] Comment on above: Order Comment: Speci men Type: BLOOD SPECIMEN [facility] Address: [address] [place] [address] Performed By: #### 5 7021-8 #### [facility] CLIA [id number] STATES [facility] AST [Catalytic activity/Vol] 15 U/L Normal 13-35 [facility] Comment on above: Order Comment: Speci men Type: BLOOD SPECIMEN [facility] Address: [address] [place] [address] Performed By: #### 5 7021-8 #### [facility] CLIA [id number] [address] [place] [address] [place] Bilirubin [Mass/Vol] 0.2 mg/dL Normal 0.2-1.3 [facility] Comment on above: Order Comment: Speci men Type: BLOOD SPECIMEN [facility] Address: [address] [place] [address] Performed By: #### 5 7021-8 #### [facility] CLIA [id number] [address] [place] [address] [place] Calcium [Mass/Vol] 9.1 mg/dL Normal 8.5-10.2 [facility] Comment on above: Order Comment: Speci men Type: BLOOD SPECIMEN [facility] Address: [address] [place] [address] Performed By: #### 5 7021-8 #### [facility] CLIA [id number] [address] [place] [address] [place] Chloride [Moles/Vol] 98 mmol/L Normal 98-107 [facility] Comment on above: Order Comment: Speci men Type: BLOOD SPECIMEN [facility] Address: [address] [place] [address] Performed By: #### 5 7021-8 #### [facility] CLIA [id number] [address] [place] [address] [place] CO2 [Moles/Vol] 26 mmol/L Normal 22-30 [facility] Comment on above: Order Comment: Speci men Type: BLOOD SPECIMEN [facility] Address: [address] [place] [address] Performed By: #### 5 7021-8 #### [facility] CLIA [id number] [address] [place] [address] [place] Creatinine [Mass/Vol] 0.82 mg/dL Normal 0.58-0.96 [facility] Comment on above: Order Comment: Speci men Type: BLOOD SPECIMEN [facility] Address: [address] [place] [address] Performed By: #### 5 7021-8 #### [facility] CLIA [id number] [address] [place] [address] [place] Creatinine and Glomerular filtration rate.predicted panel (S/P/Bld) 68 mL/min/1.73m??? Normal >=60 [facility] Comment on above: Order Comment: Speci men Type: BLOOD SPECIMEN [facility] Address: [address] [place] [address] Result Comment: Hilda mated Glomerular Filtration Rate [...] reflect actual GFR. Performed By: #### 5 7021-8 #### [facility] CLIA [id number] [address] [place] [address] [place] Glucose [Mass/Vol] 276 mg/dL High 74-99 [facility] Comment on above: Order Comment: Fan meade Type: BLOOD SPECIMEN [facility] Address: [address] [place] [address] Result Comment: The [place] Diabetes Association (ADA) provides guidance for cutoff [...] Standards of Medical Care in Diabetes 2016, [place] Diabetes Association. Diabetes Care. 2016.39(Suppl 1). Performed By: #### 5 7021-8 #### [facility] CLIA [id number] [address] [place] [address] [place] Potassium [Moles/Vol] 5.1 mmol/L Normal 3.7-5.1 [facility] Comment on above: Order Comment: Fan meaed Type: BLOOD SPECIMEN [facility] Address: [address] [place] [address] Performed By: #### 5 7021-8 #### [facility] CLIA [id number] [address] [place] [address] [place] Protein [Mass/Vol] 5.9 g/dL Low 6.3-8.0 [facility] Comment on above: Order Comment: Speci men Type: BLOOD SPECIMEN [facility] Address: [address] [place] [address] Performed By: #### 5 7021-8 #### [facility] CLIA [id number] [address] [place] [address] [place] Sodium [Moles/Vol] 137 mmol/L Normal 136-144 [facility] Comment on above: Order Comment: Speci men Type: BLOOD SPECIMEN [facility] Address: [address] [place] [address] Performed By: #### 5 7021-8 #### [facility] CLIA [id number] [address] [place] [address] [place] Urea nitrogen [Mass/Vol] 29 mg/dL High 7-21 [facility] Comment on above: Order Comment: Speci men Type: BLOOD SPECIMEN [facility] Address: [address] [place] [address] Performed By: #### 5 7021-8 #### [facility] CLIA [id number] [address] [place] [address] [place] ESR Westergren method (Bld) [Velocity]on 01-02-2025 ESR (Bld) [Velocity] 47 mm/h High [facility] Interpretation and review of laboratory results Abnormal [facility] ESR (Bld) [Velocity] 47 mm/h High 0-20 [facility] Comment on above: Order Comment: Speci men Type: BLOOD SPECIMEN [facility] Address: [address] [place] [address] Performed By: #### 2 132-9, 2276-4, 01890-1, 2284-8 #### [facility] CLIA [id number] [address] [place] [address] [id number] [address] [place] Ferritin SerPl-mCncon 2024 Ferritin [Mass/Vol] 865.0 ng/mL High 14.7-205.1 [facility] Comment on above: Order Comment: Speci men Type: BLOOD SPECIMEN [facility] Address: [address] [place] [address] Performed By: #### 2 132-9, 2276-4, 86615-6, 2283-8 #### [facility] CLIA [id number] [address] [place] [address] [place] Folate SerPl-mCncon 01-02-20 25 Folate [Mass/Vol] 14.8 ng/mL Normal >4.7 [facility] Comment on above: Order Comment: Speci men Type: BLOOD SPECIMEN [facility] Address: [address] [place] [address] Performed By: #### 2 132-9, 6-4, 00859-3, 2283-8 #### [facility] CLIA [id number] [address] [place] [address] [place] Iron and Iron binding capaci ty panelon 01-02-2025 Iron [Mass/Vol] 46 ug/dL Normal 41-186 [facility] Comment on above: Order Comment: Speci men Type: BLOOD SPECIMEN [facility] Address: [address] [place] [address] Performed By: #### 2 132-9, 6-4, 46405-5, 2283-8 #### [facility] CLIA [id number] [address] [place] [address] [place] Iron binding capacity [Mass/Vol] 245 ug/dL Normal 232-386 [facility] Comment on above: Order Comment: Speci men Type: BLOOD SPECIMEN [facility] Address: [address] [place] [address] Performed By: #### 2 132-9, 2276-4, 11158-8, 2283-8 #### [facility] CLIA [id number] [address] [place] [address] [place] Iron/TIBC [Molar ratio] 18.8 % Normal 15.0-57.0 [facility] Comment on above: Order Comment: Speci men Type: BLOOD SPECIMEN [facility] Address: [address] [place] [address] Performed By: #### 2 132-9, 2276-4, 45692-3, 2284-8 #### [facility] CLIA [id number] [address] [place] [address] [place] TYPE + SCREENon 01-02-2025 ABO group Nom (Bld) O [facility] Blood group antibody screen Ql Negative [facility] Rh Nom (Bld) Positive [facility] Type and Screen Expiration 01/05/2025 23:59 [facility] ABO O Normal [facility] Comment on above: Order Comment: Speci men Type: BLOOD SPECIMEN [facility] Address: [address] [place] [address] Performed By: #### B CRPB1 #### [facility] CLIA [id number] [address] [place] [address] [place] #### ISMRNCNPB #### [facility] CLIA [id number] [address] [place] [address] [place] Rh Nom (Bld) Positive Normal [facility] Comment on above: Order Comment: Speci men Type: BLOOD SPECIMEN [facility] Address: [address] [place] [address] Performed By: #### B CRPB1 #### [facility] CLIA [id number] [address] [place] [address] [place] #### ISMRNCNPB #### [facility] CLIA [id number] [address] [place] [address] [place] TYPE AND SCREEN EXPIRATION 01/05/2025 23:59 Normal [facility] Comment on above: Order Comment: Speci men Type: BLOOD SPECIMEN [facility] Address: [address] [place] [address] Performed By: #### B CRPB1 #### [facility] CLIA [id number] [address] [place] [address] [place] #### ISMRNCNPB #### [facility] CLIA [id number] [address] [place] [address] [place] VITAMIN B6/PYRIDOXINon 01-02 VITAMIN B6 13.8 nmol/L Low 20.0-125.0 [facility] Comment on above: Order Comment: Speci men Type: BLOOD SPECIMEN [facility] Address: [address] [place] [address] Result Comment: INTE RPRETIVE INFORMATION: Vitamin B6 (Pyridoxal 5-Phosphate) Pyridoxal 5'-phosphate measured in a specimen collected following an 8-hour or overnight fast accurately indicates vitamin B6 nutritional status. Non-fasting specimen concentration reflects recent vitamin intake. This test was developed and its performance characteristics determined by [facility]. It has not been cleared or approved by the [place] Food and Drug Administration. This test was performed in a CLIA certified laboratory and is intended for clinical purposes. Performed By: [facility] [address] [place] [address] Professor Of Genetics: Marcellus Raza MD, PhD CLIA Number: [id number] Performed By: #### 5 7021-8 #### [facility] CLIA [id number] [address] [place] [address] [place] Vit B12 SerPl-mCncon 025 Cobalamin (Vitamin B12) [Mass/Vol] 582 pg/mL Normal 232-1245 [facility] Comment on above: Order Comment: Speci men Type: BLOOD SPECIMEN [facility] Address: [address] [place] [address] Performed By: #### 2 132-9, 2276-4, 59736-2, 2284-8 #### [facility] CLIA [id number] [facility] [place] [address] [place] Zinc SerPl-mCncon 01-02-2025 Zinc [Mass/Vol] 56 ug/dL Low 60-120 [facility] Comment on above: Order Comment: Speci men Type: BLOOD SPECIMENOrdering Facility: [facility] Address: [address] [place] [address] Result Comment: This test was developed, and its performance characteristics determined by the [facility] Department of Pathology and Laboratory Medicine. It has not been cleared or approved by the FDA. The [facility] Department of Pathology and Laboratory Medicine is regulated under CLIA as qualified to perform high-complexity testing. This test is used for clinical purposes. It should not be regarded as investigational or for research. Performed By: #### 5 763-8, COPPER ####[facility] LABCLIA [id number] [place] [address] [place] Absolute lymphocyte countOrd ered By: Mario Mak on 2024 Lymphocytes Auto (Unsp spec) [#/Vol] 0.88 10*3/uL 0.83-4.51 [facility] Absolute neutrophil countOrd ered By: Mario Mak on 2024 Neutrophils (Bld) [#/Vol] 5.4 10*3/uL 2.0-7.7 [facility] Albumin to globulin ratioOrd ered By: Mario Mak on 2024 Albumin/Globulin [Mass ratio] 0.7 {ratio} Low 0.9-2.4 [facility] Automated lymphocyte count a s percentage of total leukocytesOrdered By: Mario Mak on 2024 Lymphocytes/100 WBC Auto (Unsp spec) 11.9 % Low 19-41 [facility] Basophil percentageOrdered B y: Mario Mak on 2024 Basophils/100 WBC (Bld) 0.3 % 0-1 [facility] Bilirubin, totalOrdered By: Mario Mak on 2024 Bilirubin [Mass/Vol] 0.30 mg/dL 0.20-1.00 [facility] Comment on above: For patients on eltr ombopag therapy, use of Dimension [place] TBIL is not recommended. Blood urea nitrogen (BUN)/cr eatinine ratioOrdered By: Mario Mak on 2024 Urea nitrogen/Creatinine [Mass ratio] 30.9 mg/mg High 10-20 [facility] CBC W/Diff, Automatedon 12-15 Absolute Lymph 0.88 X10 3/uL Normal 0.83-4.51 [facility] Comment on above: Order Comment: 107.1 Performed By: #### L 501.6710, L101.9900 #### [facility] Laboratory [address] [place], [address] Absolute Neut 5.4 X10 3/uL Normal 2.0-7.7 [facility] Comment on above: Order Comment: 107.1 Performed By: #### L 501.6710, L101.9900 #### [facility] [address] [place], [address] Basophils/100 WBC (Bld) 0.3 % Normal 0-1 [facility] Comment on above: Order Comment: 107.1 Performed By: #### L 501.6710, L101.9900 #### [facility] [address] [place], [address] Eosinophils/100 WBC (Bld) 6.3 % High 0-5 [facility] Comment on above: Order Comment: 107.1 Performed By: #### L 501.6710, L101.9900 #### [facility] [address] [place], [address] Erythrocyte distribution width (RBC) [Ratio] 17.1 % High 11.6-14.6 [facility] Comment on above: Order Comment: 107.1 Performed By: #### L 501.6710, L101.9900 #### [facility] [address] [place], [address] Hematocrit (Bld) [Volume fraction] 29.8 % Low 37-47 [facility] Comment on above: Order Comment: 107.1 Performed By: #### L 501.6710, L101.9900 #### [facility] [address] [place], [address] Hemoglobin (Bld) [Mass/Vol] 9.4 g/dL Low 12.0-15.0 [facility] Comment on above: Order Comment: 107.1 Performed By: #### L 501.6710, L101.9900 #### [facility] [address] [place], [address] IG% 1.100 High 0.0-0.9 [facility] Comment on above: Order Comment: 107.1 Result Comment: IG% - Immature Granulocytes (promyelocytes, myelocytes and metamyelocytes) > 1% indicates that a LEFT SHIFT is Present. Performed By: #### L 501.6710, L101.9900 #### [facility] [address] [place], [address] Lymphocytes/100 WBC (Bld) 11.9 % Low 19-41 [facility] Comment on above: Order Comment: 107.1 Performed By: #### L 501.6710, L101.9900 #### [facility] [address] [place], [address] MCH (RBC) [Entitic mass] 28.4 pg Normal 27.0-32.0 [facility] Comment on above: Order Comment: 107.1 Performed By: #### L 501.6710, L101.9900 #### [facility] [address] [place], [address] MCHC (RBC) [Mass/Vol] 31.5 g/dL Low 32-36 [facility] Comment on above: Order Comment: 107.1 Performed By: #### L 501.6710, L101.9900 #### [facility] [address] [place], [address] MCV (RBC) [Entitic vol] 90.0 fL Normal 81-99 [facility] Comment on above: Order Comment: 107.1 Performed By: #### L 501.6710, L101.9900 #### [facility] [address] [place], [address] Monocytes/100 WBC (Bld) 7.5 % Normal 0-10 [facility] Comment on above: Order Comment: 107.1 Performed By: #### L 501.6710, L101.9900 #### [facility] [address] [place], [address] Neutrophils/100 WBC (Bld) 72.9 % High 47-70 [facility] Comment on above: Order Comment: 107.1 Performed By: #### L 501.6710, L101.9900 #### [facility] [address] [place], [address] Nucleated RBC (Bld) [#/Vol] 0 10*3/uL Normal 0-5 [facility] Comment on above: Order Comment: 107.1 Performed By: #### L 501.6710, L101.9900 #### [facility] [address] [place], [address] Platelet mean volume (Bld) [Entitic vol] 9.2 fL Normal 6.2-12.0 [facility] Comment on above: Order Comment: 107.1 Performed By: #### L 501.6710, L101.9900 #### [facility] [address] [place], [address] Platelets (Bld) [#/Vol] 361 10*3/uL Normal 150-450 [facility] Comment on above: Order Comment: 107.1 Performed By: #### L 501.6710, L101.9900 #### [facility] [address] [place], [address] RBC (Bld) [#/Vol] 3.31 10*6/uL Low 4.2-5.4 [facility] Comment on above: Order Comment: 107.1 Performed By: #### L 501.6710, L101.9900 #### [facility] [address] [place], [address] RDW SD 56.3 fl High 35.1-43.9 [facility] Comment on above: Order Comment: 107.1 Performed By: #### L 501.6710, L101.9900 #### [facility] [address] [place], [address] WBC (Bld) [#/Vol] 7.4 10*3/uL Normal 4.4-11.0 [facility] Comment on above: Order Comment: 107.1 Performed By: #### L 501.6710, L101.9900 #### [facility] [address] [place], [address] Carbon dioxide measurementOr dered By: Mario Mak on 2024 CO2 [Moles/Vol] 28.0 mmol/L 21.0-32.0 [facility] Chloride measurementOrdered By: Mario Mak on 2024 Chloride [Moles/Vol] 102 mmol/L 98-107 [facility] Comprehensive Metabolic Prof ilon 2024 Albumin [Mass/Vol] 2.1 g/dL Low 3.2-5.0 [facility] Comment on above: Order Comment: 107.1 Performed By: #### L 501.6710, L101.9900 #### [facility] [address] [place], [address] Albumin/Globulin [Mass ratio] 0.7 {ratio} Low 0.9-2.4 [facility] Comment on above: Order Comment: 107.1 Performed By: #### L 501.6710, L101.9900 #### [facility] [address] [place], [address] ALK P 102 U/L Normal 45-117 [facility] Comment on above: Order Comment: 107.1 Performed By: #### L 501.6710, L101.9900 #### [facility] [address] [place], [address] ALT [Catalytic activity/Vol] U/L Low 13-56 [facility] Comment on above: Order Comment: 107.1 Performed By: #### L 501.6710, L101.9900 #### [facility] [address] [place], [address] AST [Catalytic activity/Vol] 15 U/L Normal 15-37 [facility] Comment on above: Order Comment: 107.1 Performed By: #### L 501.6710, L101.9900 #### [facility] [address] [place], [address] Bilirubin [Mass/Vol] 0.30 mg/dL Normal 0.20-1.00 [facility] Comment on above: Order Comment: 107.1 Result Comment: For patients on eltrombopag therapy, use of Dimension [place] TBIL is not recommended. Performed By: #### L 501.6710, L101.9900 #### [facility] [address] [place], [address] BUN/CRE 30.9 RATIO High 10-20 [facility] Comment on above: Order Comment: 107.1 Performed By: #### L 501.6710, L101.9900 #### [facility] [address] [place], [address] CA,Total 8.7 mg/dL Normal 8.5-10.1 [facility] Comment on above: Order Comment: 107.1 Performed By: #### L 501.6710, L101.9900 #### [facility] [address] [place], [address] Chloride [Moles/Vol] 102 mmol/L Normal 98-107 [facility] Comment on above: Order Comment: 107.1 Performed By: #### L 501.6710, L101.9900 #### [facility] [address] [place], [address] CO2 [Moles/Vol] 28.0 mmol/L Normal 21.0-32.0 [facility] Comment on above: Order Comment: 107.1 Performed By: #### L 501.6710, L101.9900 #### [facility] [address] [place], [address] Creatinine [Mass/Vol] 0.87 mg/dL Normal 0.55-1.02 [facility] Comment on above: Order Comment: 107.1 Result Comment: The validity of the calculated GFR GFRAA in patients over 70 years has not been determined. Clinical correlation is essential. Performed By: #### L 501.6710, L101.9900 #### [facility] [address] [place], [address] EST GFR - AA 79 mL/min Normal >60 [facility] Comment on above: Order Comment: 107.1 Result Comment: Afri can [place] GFR Calc Performed By: #### L 501.6710, L101.9900 #### [facility] [address] [place], [address] GAP 7 Normal 5-15 [facility] Comment on above: Order Comment: 107.1 Performed By: #### L 501.6710, L101.9900 #### [facility] [address] [place], [address] GFR/1.73 sq M.predicted among non-blacks MDRD (S/P/Bld) [Vol rate/Area] 65 mL/min/{1.73_m2} Normal >60 [facility] Comment on above: Order Comment: 107.1 Result Comment: Non- GFR Calc Performed By: #### L 501.6710, L101.9900 #### [facility] [address] [place], [address] Globulin (S) [Mass/Vol] 3.1 g/dL Normal 2.2-4.2 [facility] Comment on above: Order Comment: 107.1 Performed By: #### L 501.6710, L101.9900 #### [facility] [address] [place], [address] Glucose [Mass/Vol] 192 mg/dL High 74-106 [facility] Comment on above: Order Comment: 107.1 Result Comment: Fast ing Glucose result greater than or equal to 126 mg/dL suggests DIABETES MELLITUS per A.D.A. criteria. Performed By: #### L 501.6710, L101.9900 #### [facility] [address] [place], [address] Potassium [Moles/Vol] 3.9 mmol/L Normal 3.5-5.1 [facility] Comment on above: Order Comment: 107.1 Performed By: #### L 501.10, L101.9900 #### [facility] [address] [place], [address] Sodium [Moles/Vol] 137 mmol/L Normal 136-145 [facility] Comment on above: Order Comment: 107.1 Performed By: #### L 501.6710, L101.9900 #### [facility] [address] [place], [address] T PROT 5.2 g/dL Low 6.4-8.2 [facility] Comment on above: Order Comment: 107.1 Performed By: #### L 501.6710, L101.9900 #### [facility] [address] [place], [place], [address] Urea nitrogen [Mass/Vol] 27 mg/dL High 7-18 [facility] Comment on above: Order Comment: 107.1 Performed By: #### L 501.6710, L101.9900 #### [facility] [address] [place], [place], [address] Eosinophil percentageOrdered By: Mario Mak on 2024 Eosinophils/100 WBC (Bld) 6.3 % High 0-5 [facility] Erythrocyte Sed Rateon 12-31 SED RATE 27 mm/hr Normal 0-30 [facility] Comment on above: Order Comment: 107.1 Performed By: #### L 501.6710, L101.9900 #### [facility] [address] [place], [place], [address] Erythrocyte distribution wid th (RBC) [Ratio]Ordered By: Mario Mak on 2024 Erythrocyte distribution width (RBC) [Entitic vol] 56.3 fL High 35.1-43.9 [facility] Erythrocyte distribution wid th ratioOrdered By: Mario Mak on 2024 Erythrocyte distribution width (RBC) [Ratio] 17.1 % High 11.6-14.6 [facility] Erythrocyte distribution wid th standard deviationOrdered By: Mario Mak on 2024 Erythrocyte distribution width (RBC) [Ratio] 56.3 fl High 35.1-43.9 [facility] Erythrocyte sedimentation ra teOrdered By: Mario Mak on 2024 ESR (Bld) [Velocity] 27 mm/h 0-30 [facility] Estimated glomerular filtrat ion rate (GFR) AmericanOrdered By: Mario Mak on 2024 Estimated GFR (MDRD) Amer 79 mL/min >60 [facility] Comment on above: GFR Calc Glomerular filtration rate ( GFR) estimationOrdered By: Mario Mak on 2024 Estimated GFR (MDRD) Non-Af Amer 65 mL/min >60 [facility] Comment on above: Non- GFR Calc GFR/1.73 sq M.predicted among non-blacks MDRD (S/P/Bld) [Vol rate/Area] 65 mL/min/{1.73_m2} >60 [facility] Comment on above: Non- GFR Calc Glucose measurementOrdered B y: Mario Mak on 2024 Glucose [Mass/Vol] 192 mg/dL High 74-106 [facility] Comment on above: Fasting Glucose resu lt greater than or equal to 126 mg/dL suggests DIABETES MELLITUS per A.D.A. criteria. Hematocrit Auto (Bld) [Volum e fraction]Ordered By: Mario Mak on 2024 Hematocrit (Bld) [Volume fraction] 29.8 % Low 37-47 [facility] Hemoglobin measurementOrdere d By: Mario Mak on 2024 Hemoglobin (Bld) [Mass/Vol] 9.4 g/dL Low 12.0-15.0 [facility] Immature granulocytes/100 WB C Auto (Bld)Ordered By: Mario Mak on 2024 Immature granulocytes/100 WBC (Bld) 1.100 % High 0.0-0.9 [facility] Comment on above: IG% - Immature Granu locytes (promyelocytes, myelocytes and metamyelocytes) > 1% indicates that a LEFT SHIFT is Present. Laboratory - Chemistry and C hemistry - challengeOrdered By: Mario Mak on 2024 AST [Catalytic activity/Vol] 15 U/L 15-37 [facility] Lymphocytes Auto (Unsp spec) [#/Vol]Ordered By: Mario Mak on 2024 Lymphocytes (Bld) [#/Vol] 0.88 10*3/uL 0.83-4.51 [facility] Lymphocytes/100 WBC Auto (Un sp spec)Ordered By: Mario Mak on 2024 Lymphocytes/100 WBC (Bld) 11.9 % Low 19-41 [facility] MCV (mean corpuscular volume ) determinationOrdered By: Mario Mak on 2024 MCV (RBC) [Entitic vol] 90.0 fL 81-99 [facility] Mean corpuscular hemoglobin (MCH) determinationOrdered By: Mario Mak on 2024 MCH (RBC) [Entitic mass] 28.4 pg 27.0-32.0 [facility] Mean corpuscular hemoglobin concentration (MCHC) determinationOrdered By: Mario Mak on 2024 MCHC (RBC) [Mass/Vol] 31.5 g/dL Low 32-36 [facility] Mean platelet volume determi nationOrdered By: Mario Mak on 2024 Platelet mean volume (Bld) [Entitic vol] 9.2 fL 6.2-12.0 [facility] Monocyte percentageOrdered B y: Mario Mak on 2024 Monocytes/100 WBC (Bld) 7.5 % 0-10 [facility] Neutrophil percentageOrdered By: Mario Mak on 2024 Neutrophils/100 WBC (Bld) 72.9 % High 47-70 [facility] Nucleated red blood cell per centageOrdered By: Mario Mak on 2024 Nucleated RBC/100 WBC (Bld) [Ratio] 0 % 0-5 [facility] Platelet countOrdered By: Moreno on 2024 Platelets (Bld) [#/Vol] 361 10*3/uL 150-450 [facility] Potassium measurementOrdered By: Mario Mak on 2024 Potassium [Moles/Vol] 3.9 mmol/L 3.5-5.1 [facility] RBC Auto (Bld) [#/Vol]Ordere d By: Mario Mak on 2024 RBC (Bld) [#/Vol] 3.31 10*6/uL Low 4.2-5.4 [facility] Serum anion gap measurementO rdered By: Mario Mak on 2024 Anion gap [Moles/Vol] 7 mmol/L 5-15 [facility] Serum globulin measurementOr dered By: Mario Mak on 2024 Globulin (S) [Mass/Vol] 3.1 g/dL 2.2-4.2 [facility] Serum or plasma alanine melara otransferase (ALT) measurementOrdered By: Mario Mak on 2024 ALT [Catalytic activity/Vol] U/L Low 13-56 [facility] Serum or plasma albumin roma urement (mass/volume)Ordered By: Mario Mak on 2024 Albumin [Mass/Vol] 2.1 g/dL Low 3.2-5.0 [facility] Serum or plasma alkaline krystal sphatase measurementOrdered By: Mario Mak on 2024 ALP [Catalytic activity/Vol] 102 U/L 45-117 [facility] Serum or plasma calcium roma urement (mass/volume)Ordered By: Mario Mak on 2024 Calcium [Mass/Vol] 8.7 mg/dL 8.5-10.1 [facility] Serum or plasma creatinine m easurement (mass/volume)Ordered By: Mario Mak on 2024 Creatinine [Mass/Vol] 0.87 mg/dL 0.55-1.02 [facility] Comment on above: The validity of the calculated GFR & GFRAA in patients over 70 years has not been determined. Clinical correlation is essential. Serum or plasma urea nitroge n measurement (mass/volume)Ordered By: aMrio Mak on 2024 Urea nitrogen [Mass/Vol] 27 mg/dL High 7-18 [facility] Sodium levelOrdered By: Mario Mak on 2024 Sodium [Moles/Vol] 137 mmol/L 136-145 [facility] Total proteinOrdered By: Shwetha Mak on 2024 Protein [Mass/Vol] 5.2 g/dL Low 6.4-8.2 [facility] White blood cell (WBC) count Ordered By: Mario Mak on 2024 WBC (Bld) [#/Vol] 7.4 10*3/uL 4.4-11.0 [facility] CNOVon 12-26-2024 CNOV [facility] CNPNon 12-26-2024 CNPN Telephone (INTMIN) YUSUF MEDINA ([id number]) 1935 F [address] Date Time Provider Department 12/26/24 MIGDALIA CRAMER During your visit today, we recorded the following information about you: Linda Pss, Nikia Q 12/26/2024 9:24 AM Signed Patients caregiver demetria tapia calling to have her [employer] message she sent below addressed. Yusuf Robles's sons and are in town to make an assessment whether she is able to go home from rehab. Can you talk with them to help with their decision? Please call Nathaniel Medina at [phone]. They are here till Tuesday 12 noon. [...] this patient by: CAREGIVER José Miguel Swanson [facility] Problem List As Of Date 12/26/2024 [...] 02/19/2011 02/12/2014 (more content not included)... Normal [facility] Absolute lymphocyte countOrd ered By: Mario Mak on 12-24-2024 Lymphocytes Auto (Unsp spec) [#/Vol] 0.98 10*3/uL 0.83-4.51 [facility] Absolute neutrophil countOrd ered By: Mario Mak on 12-24-2024 Neutrophils (Bld) [#/Vol] 3.8 10*3/uL 2.0-7.7 [facility] Albumin to globulin ratioOrd ered By: Mario Mak on 12-24-2024 Albumin/Globulin [Mass ratio] 0.6 {ratio} Low 0.9-2.4 [facility] Automated lymphocyte count a s percentage of total leukocytesOrdered By: Mario Mak on 12-24-2024 Lymphocytes/100 WBC Auto (Unsp spec) 17.8 % Low 19-41 [facility] Basophil percentageOrdered B y: Mario Mak on 12-24-2024 Basophils/100 WBC (Bld) 0.5 % 0-1 [facility] Bilirubin, totalOrdered By: Mario Mak on 12-24-2024 Bilirubin [Mass/Vol] 0.30 mg/dL 0.20-1.00 [facility] Comment on above: For patients on eltr ombopag therapy, use of Dimension [place] TBIL is not recommended. Blood urea nitrogen (BUN)/cr eatinine ratioOrdered By: Mario Mak on 12-24-2024 Urea nitrogen/Creatinine [Mass ratio] 30.0 mg/mg High 10-20 [facility] CBC W/Diff, Automatedon 12-15 Absolute Lymph 0.98 X10 3/uL Normal 0.83-4.51 [facility] Comment on above: Order Comment: 107.1 Performed By: #### L 503.6030, L503.0105, L506.0250, L500.4050, L100.0100, L101.9900 #### [facility] [address] [place], [address] Absolute Neut 3.8 X10 3/uL Normal 2.0-7.7 [facility] Comment on above: Order Comment: 107.1 Performed By: #### L 503.6030, L503.0105, L506.0250, L500.4050, L100.0100, L101.9900 #### [facility] [address] [place], [address] Basophils/100 WBC (Bld) 0.5 % Normal 0-1 [facility] Comment on above: Order Comment: 107.1 Performed By: #### L 503.6030, L503.0105, L506.0250, L500.4050, L100.0100, L101.9900 #### [facility] [address] [place], [address] Eosinophils/100 WBC (Bld) 5.1 % High 0-5 [facility] Comment on above: Order Comment: 107.1 Performed By: #### L 503.6030, L503.0105, L506.0250, L500.4050, L100.0100, L101.9900 #### [facility] [address] [place], [address] Erythrocyte distribution width (RBC) [Ratio] 16.8 % High 11.6-14.6 [facility] Comment on above: Order Comment: 107.1 Performed By: #### L 503.6030, L503.0105, L506.0250, L500.4050, L100.0100, L101.9900 #### [facility] [address] [place], [address] Hematocrit (Bld) [Volume fraction] 27.5 % Low 37-47 [facility] Comment on above: Order Comment: 107.1 Performed By: #### L 503.6030, L503.0105, L506.0250, L500.4050, L100.0100, L101.9900 #### [facility] [address] [place], [address] Hemoglobin (Bld) [Mass/Vol] 8.9 g/dL Low 12.0-15.0 [facility] Comment on above: Order Comment: 107.1 Performed By: #### L 503.6030, L503.0105, L506.0250, L500.4050, L100.0100, L101.9900 #### [facility] [address] [place], [address] IG% 0.900 Normal 0.0-0.9 [facility] Comment on above: Order Comment: 107.1 Result Comment: IG% - Immature Granulocytes (promyelocytes, myelocytes and metamyelocytes) > 1% indicates that a LEFT SHIFT is Present. Performed By: #### L 503.6030, L503.0105, L506.0250, L500.4050, L100.0100, L101.9900 #### [facility] [address] [place], [address] Lymphocytes/100 WBC (Bld) 17.8 % Low 19-41 [facility] Comment on above: Order Comment: 107.1 Performed By: #### L 503.6030, L503.0105, L506.0250, L500.4050, L100.0100, L101.9900 #### [facility] [address] [place], [address] MCH (RBC) [Entitic mass] 29.0 pg Normal 27.0-32.0 [facility] Comment on above: Order Comment: 107.1 Performed By: #### L 503.6030, L503.0105, L506.0250, L500.4050, L100.0100, L101.9900 #### [facility] [address] [place], [address] MCHC (RBC) [Mass/Vol] 32.4 g/dL Normal 32-36 [facility] Comment on above: Order Comment: 107.1 Performed By: #### L 503.6030, L503.0105, L506.0250, L500.4050, L100.0100, L101.9900 #### [facility] [address] [place], [address] MCV (RBC) [Entitic vol] 89.6 fL Normal 81-99 [facility] Comment on above: Order Comment: 107.1 Performed By: #### L 503.6030, L503.0105, L506.0250, L500.4050, L100.0100, L101.9900 #### [facility] [address] [place], [address] Monocytes/100 WBC (Bld) 7.3 % Normal 0-10 [facility] Comment on above: Order Comment: 107.1 Performed By: #### L 503.6030, L503.0105, L506.0250, L500.4050, L100.0100, L101.9900 #### [facility] [address] [place], [address] Neutrophils/100 WBC (Bld) 68.4 % Normal 47-70 [facility] Comment on above: Order Comment: 107.1 Performed By: #### L 503.6030, L503.0105, L506.0250, L500.4050, L100.0100, L101.9900 #### [facility] [address] [place], [address] Nucleated RBC (Bld) [#/Vol] 0 10*3/uL Normal 0-5 [facility] Comment on above: Order Comment: 107.1 Performed By: #### L 503.6030, L503.0105, L506.0250, L500.4050, L100.0100, L101.9900 #### [facility] [address] [place], [address] Platelet mean volume (Bld) [Entitic vol] 9.3 fL Normal 6.2-12.0 [facility] Comment on above: Order Comment: 107.1 Performed By: #### L 503.6030, L503.0105, L506.0250, L500.4050, L100.0100, L101.9900 #### [facility] [address] [place], [address] Platelets (Bld) [#/Vol] 309 10*3/uL Normal 150-450 [facility] Comment on above: Order Comment: 107.1 Performed By: #### L 503.6030, L503.0105, L506.0250, L500.4050, L100.0100, L101.9900 #### [facility] [address] [place], [address] RBC (Bld) [#/Vol] 3.07 10*6/uL Low 4.2-5.4 [facility] Comment on above: Order Comment: 107.1 Performed By: #### L 503.6030, L503.0105, L506.0250, L500.4050, L100.0100, L101.9900 #### [facility] [address] [place], [address] RDW SD 55.5 fl High 35.1-43.9 [facility] Comment on above: Order Comment: 107.1 Performed By: #### L 503.6030, L503.0105, L506.0250, L500.4050, L100.0100, L101.9900 #### [facility] [address] [place], [address] WBC (Bld) [#/Vol] 5.5 10*3/uL Normal 4.4-11.0 [facility] Comment on above: Order Comment: 107.1 Performed By: #### L 503.6030, L503.0105, L506.0250, L500.4050, L100.0100, L101.9900 #### [facility] [address] [place], [address] Carbon dioxide measurementOr dered By: Mario Mak on 12-24-2024 CO2 [Moles/Vol] 29.0 mmol/L 21.0-32.0 [facility] Chloride measurementOrdered By: Mario Mak on 12-24-2024 Chloride [Moles/Vol] 106 mmol/L 98-107 [facility] Comprehensive Metabolic Prof ilon 12-24-2024 Albumin [Mass/Vol] 2.0 g/dL Low 3.2-5.0 [facility] Comment on above: Order Comment: 107.1 Performed By: #### L 503.6030, L503.0105, L506.0250, L500.4050, L100.0100, L101.9900 #### [facility] [address] [place], [address] Albumin/Globulin [Mass ratio] 0.6 {ratio} Low 0.9-2.4 [facility] Comment on above: Order Comment: 107.1 Performed By: #### L 503.6030, L503.0105, L506.0250, L500.4050, L100.0100, L101.9900 #### [facility] [address] [place], [address] ALK P 108 U/L Normal 45-117 [facility] Comment on above: Order Comment: 107.1 Performed By: #### L 503.6030, L503.0105, L506.0250, L500.4050, L100.0100, L101.9900 #### [facility] [address] [place], [address] ALT [Catalytic activity/Vol] U/L Low 13-56 [facility] Comment on above: Order Comment: 107.1 Performed By: #### L 503.6030, L503.0105, L506.0250, L500.4050, L100.0100, L101.9900 #### [facility] [address] [place], [address] AST [Catalytic activity/Vol] 17 U/L Normal 15-37 [facility] Comment on above: Order Comment: 107.1 Performed By: #### L 503.6030, L503.0105, L506.0250, L500.4050, L100.0100, L101.9900 #### [facility] [address] [place], [address] Bilirubin [Mass/Vol] 0.30 mg/dL Normal 0.20-1.00 [facility] Comment on above: Order Comment: 107.1 Result Comment: For patients on eltrombopag therapy, use of Dimension [place] TBIL is not recommended. Performed By: #### L 503.6030, L503.0105, L506.0250, L500.4050, L100.0100, L101.9900 #### [facility] [address] [place], [address] BUN/CRE 30.0 RATIO High 10-20 [facility] Comment on above: Order Comment: 107.1 Performed By: #### L 503.6030, L503.0105, L506.0250, L500.4050, L100.0100, L101.9900 #### [facility] [address] [place], [address] CA,Total 8.8 mg/dL Normal 8.5-10.1 [facility] Comment on above: Order Comment: 107.1 Performed By: #### L 503.6030, L503.0105, L506.0250, L500.4050, L100.0100, L101.9900 #### [facility] [address] [place], [address] Chloride [Moles/Vol] 106 mmol/L Normal 98-107 [facility] Comment on above: Order Comment: 107.1 Performed By: #### L 503.6030, L503.0105, L506.0250, L500.4050, L100.0100, L101.9900 #### [facility] [address] [place], [address] CO2 [Moles/Vol] 29.0 mmol/L Normal 21.0-32.0 [facility] Comment on above: Order Comment: 107.1 Performed By: #### L 503.6030, L503.0105, L506.0250, L500.4050, L100.0100, L101.9900 #### [facility] [address] [place], [address] Creatinine [Mass/Vol] 0.83 mg/dL Normal 0.55-1.02 [facility] Comment on above: Order Comment: 107.1 Result Comment: The validity of the calculated GFR GFRAA in patients over 70 years has not been determined. Clinical correlation is essential. Performed By: #### L 503.6030, L503.0105, L506.0250, L500.4050, L100.0100, L101.9900 #### [facility] [address] [place], [address] EST GFR - AA 83 mL/min Normal >60 [facility] Comment on above: Order Comment: 107.1 Result Comment: Afri can [place] GFR Calc Performed By: #### L 503.6030, L503.0105, L506.0250, L500.4050, L100.0100, L101.9900 #### [facility] [address] [place], [address] GAP 7 Normal 5-15 [facility] Comment on above: Order Comment: 107.1 Performed By: #### L 503.6030, L503.0105, L506.0250, L500.4050, L100.0100, L101.9900 #### [facility] [address] [place], [address] GFR/1.73 sq M.predicted among non-blacks MDRD (S/P/Bld) [Vol rate/Area] 68 mL/min/{1.73_m2} Normal >60 [facility] Comment on above: Order Comment: 107.1 Result Comment: Non- GFR Calc Performed By: #### L 503.6030, L503.0105, L506.0250, L500.4050, L100.0100, L101.9900 #### [facility] [address] [place], [address] Globulin (S) [Mass/Vol] 3.4 g/dL Normal 2.2-4.2 [facility] Comment on above: Order Comment: 107.1 Performed By: #### L 503.6030, L503.0105, L506.0250, L500.4050, L100.0100, L101.9900 #### [facility] [address] [place], [address] Glucose [Mass/Vol] 76 mg/dL Normal 74-106 [facility] Comment on above: Order Comment: 107.1 Performed By: #### L 503.6030, L503.0105, L506.0250, L500.4050, L100.0100, L101.9900 #### [facility] [address] [place], [address] Potassium [Moles/Vol] 4.0 mmol/L Normal 3.5-5.1 [facility] Comment on above: Order Comment: 107.1 Performed By: #### L 503.6030, L503.0105, L506.0250, L500.4050, L100.0100, L101.9900 #### [facility] [address] [place], [address] Sodium [Moles/Vol] 141 mmol/L Normal 136-145 [facility] Comment on above: Order Comment: 107.1 Performed By: #### L 503.6030, L503.0105, L506.0250, L500.4050, L100.0100, L101.9900 #### [facility] [address] [place], [address] T PROT 5.4 g/dL Low 6.4-8.2 [facility] Comment on above: Order Comment: 107.1 Performed By: #### L 503.6030, L503.0105, L506.0250, L500.4050, L100.0100, L101.9900 #### [facility] [address] [place], [place], [address] Urea nitrogen [Mass/Vol] 25 mg/dL High 7-18 [facility] Comment on above: Order Comment: 107.1 Performed By: #### L 503.6030, L503.0105, L506.0250, L500.4050, L100.0100, L101.9900 #### [facility] [address] [place], [place], [id number] Eosinophil percentageOrdered By: Mario Mak on 12-24-2024 Eosinophils/100 WBC (Bld) 5.1 % High 0-5 [facility] Erythrocyte Sed Rateon 12-24 SED RATE 38 mm/hr High 0-30 [facility] Comment on above: Order Comment: 107.1 Performed By: #### L 503.6030, L503.0105, L506.0250, L500.4050, L100.0100, L101.9900 #### [facility] [address] [place], [place], [address] Erythrocyte distribution wid th (RBC) [Ratio]Ordered By: Mario Mak on 12-24-2024 Erythrocyte distribution width (RBC) [Entitic vol] 55.5 fL High 35.1-43.9 [facility] Erythrocyte distribution wid th ratioOrdered By: Mario Mak on 12-24-2024 Erythrocyte distribution width (RBC) [Ratio] 16.8 % High 11.6-14.6 [facility] Erythrocyte distribution wid th standard deviationOrdered By: Mario Mak on 12-24-2024 Erythrocyte distribution width (RBC) [Ratio] 55.5 fl High 35.1-43.9 [facility] Erythrocyte sedimentation ra teOrdered By: Mario Mak on 12-24-2024 ESR (Bld) [Velocity] 38 mm/h High 0-30 [facility] Estimated glomerular filtrat ion rate (GFR) AmericanOrdered By: Mario Mak on 12-24-2024 Estimated GFR (MDRD) Amer 83 mL/min >60 [facility] Comment on above: GFR Calc Folates, (Folic Acid)on 12-15 FOLATES 6.70 ng/mL Normal 3.1-55.4 [facility] Comment on above: Order Comment: 107.1 Performed By: #### L 501.6710, L101.9900 #### [facility] [address] [place], [place], [id number] Folic acid measurementOrdere d By: Mario Mak on 12-24-2024 Folate 6.70 ng/mL 3.1-55.4 [facility] Glomerular filtration rate ( GFR) estimationOrdered By: Mario Mak on 12-24-2024 Estimated GFR (MDRD) Non-Af Amer 68 mL/min >60 [facility] Comment on above: Non- GFR Calc GFR/1.73 sq M.predicted among non-blacks MDRD (S/P/Bld) [Vol rate/Area] 68 mL/min/{1.73_m2} >60 [facility] Comment on above: Non- GFR Calc Glucose measurementOrdered B y: Mario Mak on 12-24-2024 Glucose [Mass/Vol] 76 mg/dL 74-106 [facility] Hematocrit Auto (Bld) [Volum e fraction]Ordered By: Mario Mak on 12-24-2024 Hematocrit (Bld) [Volume fraction] 27.5 % Low 37-47 [facility] Hemoglobin measurementOrdere d By: Mario Mak on 12-24-2024 Hemoglobin (Bld) [Mass/Vol] 8.9 g/dL Low 12.0-15.0 [facility] Immature granulocytes/100 WB C Auto (Bld)Ordered By: Mario Mak on 12-24-2024 Immature granulocytes/100 WBC (Bld) 0.900 % 0.0-0.9 [facility] Comment on above: IG% - Immature Granu locytes (promyelocytes, myelocytes and metamyelocytes) > 1% indicates that a LEFT SHIFT is Present. Iron (Unsp spec) [Mass/Mass] Ordered By: Mario Mak on 12-24-2024 Iron [Mass/Vol] 58 ug/dL 50-170 [facility] Iron measurement (mass/mass) Ordered By: Mario Mak on 12-24-2024 Iron (Unsp spec) [Mass/Mass] 58 ug/dL 50-170 [facility] Iron saturation [Mass fracti on]Ordered By: Mario Mak on 12-24-2024 Iron Saturation 35.4 % 15.0-55.0 [facility] Iron+Iron Binding Capacityon 12-24-2024 Iron [Mass/Vol] 58 ug/dL Normal 50-170 [facility] Comment on above: Order Comment: 107.1 Performed By: #### L 501.6710, L101.9900 #### [facility] [address] [facility] [address] IRON SATURATION 35.4 Normal 15.0-55.0 [facility] Comment on above: Order Comment: 107.1 Performed By: #### L 501.6710, L101.9900 #### [facility] [address] [place], [address] TIBC 164 ug/dL Low 250-450 [facility] Comment on above: Order Comment: 107.1 Performed By: #### L 501.6710, L101.9900 #### [facility] [address] [place], [address] Laboratory - Chemistry and C hemistry - challengeOrdered By: Mario Mak on 12-24-2024 AST [Catalytic activity/Vol] 17 U/L 15-37 [facility] Lymphocytes Auto (Unsp spec) [#/Vol]Ordered By: Mario Mak on 12-24-2024 Lymphocytes (Bld) [#/Vol] 0.98 10*3/uL 0.83-4.51 [facility] Lymphocytes/100 WBC Auto (Un sp spec)Ordered By: Mario Mak on 12-24-2024 Lymphocytes/100 WBC (Bld) 17.8 % Low 19-41 [facility] MCV (mean corpuscular volume ) determinationOrdered By: Mario Mak on 12-24-2024 MCV (RBC) [Entitic vol] 89.6 fL 81-99 [facility] Mean corpuscular hemoglobin (MCH) determinationOrdered By: Mario Mak on 12-24-2024 MCH (RBC) [Entitic mass] 29.0 pg 27.0-32.0 [facility] Mean corpuscular hemoglobin concentration (MCHC) determinationOrdered By: Mario Mak on 12-24-2024 MCHC (RBC) [Mass/Vol] 32.4 g/dL 32-36 [facility] Mean platelet volume determi nationOrdered By: Mario Mak on 12-24-2024 Platelet mean volume (Bld) [Entitic vol] 9.3 fL 6.2-12.0 [facility] Monocyte percentageOrdered B y: Mario Mak on 12-24-2024 Monocytes/100 WBC (Bld) 7.3 % 0-10 [facility] Neutrophil percentageOrdered By: Mario Mak on 12-24-2024 Neutrophils/100 WBC (Bld) 68.4 % 47-70 [facility] Nucleated red blood cell per centageOrdered By: Mario Mak on 12-24-2024 Nucleated RBC/100 WBC (Bld) [Ratio] 0 % 0-5 [facility] Platelet countOrdered By: Moreno on 12-24-2024 Platelets (Bld) [#/Vol] 309 10*3/uL 150-450 [facility] Potassium measurementOrdered By: Mario Mak on 12-24-2024 Potassium [Moles/Vol] 4.0 mmol/L 3.5-5.1 [facility] RBC Auto (Bld) [#/Vol]Ordere d By: Mario Mak on 12-24-2024 RBC (Bld) [#/Vol] 3.07 10*6/uL Low 4.2-5.4 [facility] Serum anion gap measurementO rdered By: Mario Mak on 12-24-2024 Anion gap [Moles/Vol] 7 mmol/L 5-15 [facility] Serum globulin measurementOr dered By: Mario Mak on 12-24-2024 Globulin (S) [Mass/Vol] 3.4 g/dL 2.2-4.2 [facility] Serum or plasma alanine melara otransferase (ALT) measurementOrdered By: Mario Mak on 12-24-2024 ALT [Catalytic activity/Vol] U/L Low 13-56 [facility] Serum or plasma albumin roma urement (mass/volume)Ordered By: Mario Mak on 12-24-2024 Albumin [Mass/Vol] 2.0 g/dL Low 3.2-5.0 [facility] Serum or plasma alkaline krystal sphatase measurementOrdered By: Mario Mak on 12-24-2024 ALP [Catalytic activity/Vol] 108 U/L 45-117 [facility] Serum or plasma calcium roma urement (mass/volume)Ordered By: Mario Mak on 12-24-2024 Calcium [Mass/Vol] 8.8 mg/dL 8.5-10.1 [facility] Serum or plasma creatinine m easurement (mass/volume)Ordered By: Mario Mak on 12-24-2024 Creatinine [Mass/Vol] 0.83 mg/dL 0.55-1.02 [facility] Comment on above: The validity of the calculated GFR & GFRAA in patients over 70 years has not been determined. Clinical correlation is essential. Serum or plasma iron saturat ion measurement (mass fraction)Ordered By: Mario Mak on 12-24-2024 Iron saturation [Mass fraction] 35.4 % 15.0-55.0 [facility] Serum or plasma urea nitroge n measurement (mass/volume)Ordered By: Mario Mak on 12-24-2024 Urea nitrogen [Mass/Vol] 25 mg/dL High 7-18 [facility] Sodium levelOrdered By: Mario Mak on 12-24-2024 Sodium [Moles/Vol] 141 mmol/L 136-145 [facility] TIBCOrdered By: Mario Mak on 12-24-2024 Total Iron Binding Capacity 164 ug/dL Low 250-450 [facility] Total proteinOrdered By: Shwetha Mak on 12-24-2024 Protein [Mass/Vol] 5.4 g/dL Low 6.4-8.2 [facility] Vitamin B12on 12-24-2024 Cobalamin (Vitamin B12) [Mass/Vol] 407 pg/mL Normal 211-911 [facility] Comment on above: Order Comment: 107.1 Performed By: #### L 503.6030, L503.0105, L506.0250, L500.4050, L100.0100, L101.9900 #### [facility] [address] [place], [address] Vitamin B12 measurementOrder ed By: Mario Mak on 12-24-2024 Cobalamin (Vitamin B12) [Mass/Vol] 407 pg/mL 211-911 [facility] White blood cell (WBC) count Ordered By: Mario Mak on 12-24-2024 WBC (Bld) [#/Vol] 5.5 10*3/uL 4.4-11.0 [facility] Albumin to globulin ratioOrd ered By: Mario Mak on 12-17-2024 Albumin/Globulin [Mass ratio] 0.6 {ratio} Low 0.9-2.4 [facility] Bilirubin, totalOrdered By: Mario Mak on 12-17-2024 Bilirubin [Mass/Vol] 0.30 mg/dL 0.20-1.00 [facility] Comment on above: For patients on eltr ombopag therapy, use of Dimension [place] TBIL is not recommended. Blood urea nitrogen (BUN)/cr eatinine ratioOrdered By: Mario Mak on 12-17-2024 Urea nitrogen/Creatinine [Mass ratio] 38.9 mg/mg High 10-20 [facility] CBC-Complete Blood Cnt No Di ffon 12-17-2024 Erythrocyte distribution width (RBC) [Ratio] 17.8 % High 11.6-14.6 [facility] Comment on above: Order Comment: 107.1 Performed By: #### L 400.0001, #### [facility] [address] [place], [address] Hematocrit (Bld) [Volume fraction] 24.9 % Low 37-47 [facility] Comment on above: Order Comment: 107.1 Performed By: #### L 400.0001, #### [facility] [address] [place], [address] Hemoglobin (Bld) [Mass/Vol] 7.7 g/dL Low 12.0-15.0 [facility] Comment on above: Order Comment: 107.1 Performed By: #### L 400.0001, #### [facility] [address] [place], [address] MCH (RBC) [Entitic mass] 28.3 pg Normal 27.0-32.0 [facility] Comment on above: Order Comment: 107.1 Performed By: #### L 400.0001, #### [facility] [address] [place], [address] MCHC (RBC) [Mass/Vol] 30.9 g/dL Low 32-36 [facility] Comment on above: Order Comment: 107.1 Performed By: #### L 400.0001, #### [facility] [address] [place], [address] MCV (RBC) [Entitic vol] 91.5 fL Normal 81-99 [facility] Comment on above: Order Comment: 107.1 Performed By: #### L 400.0001, #### [facility] [address] [place], [address] Platelet mean volume (Bld) [Entitic vol] 8.7 fL Normal 6.2-12.0 [facility] Comment on above: Order Comment: 107.1 Performed By: #### L 400.0001, .2199 #### [facility] [address] [place], [address] Platelets (Bld) [#/Vol] 391 10*3/uL Normal 150-450 [facility] Comment on above: Order Comment: 107.1 Performed By: #### L 400.0001, .2199 #### [facility] [address] [place], [address] RBC (Bld) [#/Vol] 2.72 10*6/uL Low 4.2-5.4 [facility] Comment on above: Order Comment: 107.1 Performed By: #### L 400.0001, .2199 #### [facility] [address] [place], [address] RDW SD 59.4 fl High 35.1-43.9 [facility] Comment on above: Order Comment: 107.1 Performed By: #### L 400.0001, .2199 #### [facility] [address] [place], [address] WBC (Bld) [#/Vol] 7.6 10*3/uL Normal 4.4-11.0 [facility] Comment on above: Order Comment: 107.1 Performed By: #### L 400.0001, #### [facility] [address] [place], [address] Carbon dioxide measurementOr dered By: Mario Mak on 12-17-2024 CO2 [Moles/Vol] 25.0 mmol/L 21.0-32.0 [facility] Chloride measurementOrdered By: Mario Mak on 12-17-2024 Chloride [Moles/Vol] 104 mmol/L 98-107 [facility] Comprehensive Metabolic Prof ilon 12-17-2024 Albumin [Mass/Vol] 1.9 g/dL Low 3.2-5.0 [facility] Comment on above: Order Comment: 107.1 Performed By: #### L 400.0001, #### [facility] [address] [place], [address] Albumin/Globulin [Mass ratio] 0.6 {ratio} Low 0.9-2.4 [facility] Comment on above: Order Comment: 107.1 Performed By: #### L 400.0001, #### [facility] [address] [place], [address] ALK P 96 U/L Normal 45-117 [facility] Comment on above: Order Comment: 107.1 Performed By: #### L 400.0001, #### [facility] [address] [place], [address] ALT [Catalytic activity/Vol] 9 U/L Low 13-56 [facility] Comment on above: Order Comment: 107.1 Performed By: #### L 400.0001, #### [facility] [address] [place], [address] AST [Catalytic activity/Vol] 26 U/L Normal 15-37 [facility] Comment on above: Order Comment: 107.1 Performed By: #### L 400.0001, #### [facility] [address] [place], [address] Bilirubin [Mass/Vol] 0.30 mg/dL Normal 0.20-1.00 [facility] Comment on above: Order Comment: 107.1 Result Comment: For patients on eltrombopag therapy, use of Dimension [place] TBIL is not recommended. Performed By: #### L 400.0001, #### [facility] [address] [place], [address] BUN/CRE 38.9 RATIO High 10-20 [facility] Comment on above: Order Comment: 107.1 Performed By: #### L 400.0001, #### [facility] [address] [place], [address] CA,Total 8.4 mg/dL Low 8.5-10.1 [facility] Comment on above: Order Comment: 107.1 Performed By: #### L 400.0001, #### [facility] [address] [place], [address] Chloride [Moles/Vol] 104 mmol/L Normal 98-107 [facility] Comment on above: Order Comment: 107.1 Performed By: #### L 400.0001, #### [facility] [address] [place], [address] CO2 [Moles/Vol] 25.0 mmol/L Normal 21.0-32.0 [facility] Comment on above: Order Comment: 107.1 Performed By: #### L 400.0001, #### [facility] [address] [place], [address] Creatinine [Mass/Vol] 0.77 mg/dL Normal 0.55-1.02 [facility] Comment on above: Order Comment: 107.1 Result Comment: The validity of the calculated GFR GFRAA in patients over 70 years has not been determined. Clinical correlation is essential. Performed By: #### L 400.0001, #### [facility] [facility] [address] [place], [address] EST GFR - AA 91 mL/min Normal >60 [facility] Comment on above: Order Comment: 107.1 Result Comment: Afri can [place] GFR Calc Performed By: #### L 400.0001, #### [facility] [address] [place], [address] GAP 8 Normal 5-15 [facility] Comment on above: Order Comment: 107.1 Performed By: #### L 400.0001, #### [facility] [address] [place], [address] GFR/1.73 sq M.predicted among non-blacks MDRD (S/P/Bld) [Vol rate/Area] 75 mL/min/{1.73_m2} Normal >60 [facility] Comment on above: Order Comment: 107.1 Result Comment: Non- GFR Calc Performed By: #### L 400.0001, #### [facility] [address] [place], [address] Globulin (S) [Mass/Vol] 3.2 g/dL Normal 2.2-4.2 [facility] Comment on above: Order Comment: 107.1 Performed By: #### L 400.0001, #### [facility] [address] [place], [address] Glucose [Mass/Vol] 203 mg/dL High 74-106 [facility] Comment on above: Order Comment: 107.1 Result Comment: Gluc ose result greater than or equal to 200 mg/dL suggests DIABETES MELLITUS per A.D.A. criteria. Performed By: #### L 400.0001, #### [facility] [address] [place], [address] Potassium [Moles/Vol] 4.2 mmol/L Normal 3.5-5.1 [facility] Comment on above: Order Comment: 107.1 Performed By: #### L 400.0001, #### [facility] [address] [place], [address] Sodium [Moles/Vol] 137 mmol/L Normal 136-145 [facility] Comment on above: Order Comment: 107.1 Performed By: #### L 400.0001, #### [facility] [address] [place], [place], [address] T PROT 5.1 g/dL Low 6.4-8.2 [facility] Comment on above: Order Comment: 107.1 Performed By: #### L 400.0001, M100.2200 #### [facility] [address] [place], [address] Urea nitrogen [Mass/Vol] 30 mg/dL High 7-18 [facility] Comment on above: Order Comment: 107.1 Performed By: #### L 400.0001, M100.2200 #### [facility] [address] [place], [address] Erythrocyte Sed Rateon 12-17 SED RATE 24 mm/hr Normal 0-30 [facility] Comment on above: Order Comment: 107.1 Performed By: #### L 400.0001, M100.2200 #### [facility] [address] [place], [address] Erythrocyte distribution wid th (RBC) [Ratio]Ordered By: Mario Mak on 12-17-2024 Erythrocyte distribution width (RBC) [Entitic vol] 59.4 fL High 35.1-43.9 [facility] Erythrocyte distribution wid th ratioOrdered By: Mario Mak on 12-17-2024 Erythrocyte distribution width (RBC) [Ratio] 17.8 % High 11.6-14.6 [facility] Erythrocyte distribution wid th standard deviationOrdered By: Mario Mak on 12-17-2024 Erythrocyte distribution width (RBC) [Ratio] 59.4 fl High 35.1-43.9 [facility] Erythrocyte sedimentation ra teOrdered By: Mario Mak on 12-17-2024 ESR (Bld) [Velocity] 24 mm/h 0-30 [facility] Estimated glomerular filtrat ion rate (GFR) AmericanOrdered By: Mario Mak on 12-17-2024 Estimated GFR (MDRD) Amer 91 mL/min >60 [facility] Comment on above: GFR Calc Glomerular filtration rate ( GFR) estimationOrdered By: Mario Mak on 12-17-2024 Estimated GFR (MDRD) Non-Af Amer 75 mL/min >60 [facility] Comment on above: Non- GFR Calc GFR/1.73 sq M.predicted among non-blacks MDRD (S/P/Bld) [Vol rate/Area] 75 mL/min/{1.73_m2} >60 [facility] Comment on above: Non- GFR Calc Glucose measurementOrdered B y: Mario Mak on 12-17-2024 Glucose [Mass/Vol] 203 mg/dL High 74-106 [facility] Comment on above: Glucose result great er than or equal to 200 mg/dLsuggests DIABETES MELLITUS per A.D.A. criteria. Hematocrit Auto (Bld) [Volum e fraction]Ordered By: Mario Mak on 12-17-2024 Hematocrit (Bld) [Volume fraction] 24.9 % Low 37-47 [facility] Hemoglobin measurementOrdere d By: Mario Mak on 12-17-2024 Hemoglobin (Bld) [Mass/Vol] 7.7 g/dL Low 12.0-15.0 [facility] - Chemistry and C hemistry - challengeOrdered By: Mario Mak on 12-17-2024 AST [Catalytic activity/Vol] 26 U/L 15-37 [facility] MCV (mean corpuscular volume ) determinationOrdered By: Mario Mak on 12-17-2024 MCV (RBC) [Entitic vol] 91.5 fL 81-99 [facility] Mean corpuscular hemoglobin (MCH) determinationOrdered By: Mario Mak on 12-17-2024 MCH (RBC) [Entitic mass] 28.3 pg 27.0-32.0 [facility] Mean corpuscular hemoglobin concentration (MCHC) determinationOrdered By: Mario Mak on 12-17-2024 MCHC (RBC) [Mass/Vol] 30.9 g/dL Low 32-36 [facility] Mean platelet volume determi nationOrdered By: Mario Mak on 12-17-2024 Platelet mean volume (Bld) [Entitic vol] 8.7 fL 6.2-12.0 [facility] Platelet countOrdered By: Moreno on 12-17-2024 Platelets (Bld) [#/Vol] 391 10*3/uL 150-450 [facility] Potassium measurementOrdered By: Mario Mak on 12-17-2024 Potassium [Moles/Vol] 4.2 mmol/L 3.5-5.1 [facility] RBC Auto (Bld) [#/Vol]Ordere d By: Mario Mak on 12-17-2024 RBC (Bld) [#/Vol] 2.72 10*6/uL Low 4.2-5.4 [facility] Serum anion gap measurementO rdered By: Mario Mak on 12-17-2024 Anion gap [Moles/Vol] 8 mmol/L 5-15 [facility] Serum globulin measurementOr dered By: Mario Mak on 12-17-2024 Globulin (S) [Mass/Vol] 3.2 g/dL 2.2-4.2 [facility] Serum or plasma alanine melara otransferase (ALT) measurementOrdered By: Mario Mak on 12-17-2024 ALT [Catalytic activity/Vol] 9 U/L Low 13-56 [facility] Serum or plasma albumin roma urement (mass/volume)Ordered By: Mario Mak on 12-17-2024 Albumin [Mass/Vol] 1.9 g/dL Low 3.2-5.0 [facility] Serum or plasma alkaline krystal sphatase measurementOrdered By: Mario Mak on 12-17-2024 ALP [Catalytic activity/Vol] 96 U/L 45-117 [facility] Serum or plasma calcium roma urement (mass/volume)Ordered By: Mario Mak on 12-17-2024 Calcium [Mass/Vol] 8.4 mg/dL Low 8.5-10.1 [facility] Serum or plasma creatinine m easurement (mass/volume)Ordered By: Mario Mak on 12-17-2024 Creatinine [Mass/Vol] 0.77 mg/dL 0.55-1.02 [facility] Comment on above: The validity of the calculated GFR & GFRAA in patients over 70 years has not been determined. Clinical correlation is essential. Serum or plasma urea nitroge n measurement (mass/volume)Ordered By: Mario Mak on 12-17-2024 Urea nitrogen [Mass/Vol] 30 mg/dL High 7-18 [facility] Sodium levelOrdered By: Mario Mak on 12-17-2024 Sodium [Moles/Vol] 137 mmol/L 136-145 [facility] Total proteinOrdered By: Shwetha Mak on 12-17-2024 Protein [Mass/Vol] 5.1 g/dL Low 6.4-8.2 [facility] White blood cell (WBC) count Ordered By: Mario Mak on 12-17-2024 WBC (Bld) [#/Vol] 7.6 10*3/uL 4.4-11.0 [facility] ANES POSTPROC EVALon 025 ANES POSTPROC EVAL Normal [facility] ANES PRE-OPon 12-12-2024 ANES PRE-OP Normal [facility] BRIEF OP NOTon 12-12-2024 BRIEF OP NOT Normal [facility] Basic metabolic 2000 panelon 12-12-2024 Anion gap [Moles/Vol] 9 mmol/L Normal 8-15 [facility] Comment on above: Order Comment: Speci men Type: BLOOD SPECIMENOrdering Facility: [facility] Address: [address] [place] [address] Performed By: #### 2 4321-2 ####[facility]ORYCLIA [id number] [place] [address] [place] Calcium [Mass/Vol] 8.9 mg/dL Normal 8.5-10.2 [facility] Comment on above: Order Comment: Speci men Type: BLOOD SPECIMENOrdering Facility: [facility] Address: [address] [place] [address] Performed By: #### 2 4321-2 ####[facility]ORYCLIA [id number] [place] [id number] [place] Chloride [Moles/Vol] 104 mmol/L Normal 98-107 [facility] Comment on above: Order Comment: Speci men Type: BLOOD SPECIMENOrdering Facility: [facility] Address: [address] [place] [address] Performed By: #### 2 4321-2 ####[facility]ORYCLIA [id number] [place] [id number] [place] CO2 [Moles/Vol] 24 mmol/L Normal 22-30 [facility] Comment on above: Order Comment: Katei men Type: BLOOD SPECIMENOrdering Facility: [facility] Address: [address] [place] [address] Performed By: #### 2 4321-2 ####[facility]ORATORYCLIA [id number] [address] [place] Creatinine [Mass/Vol] 0.74 mg/dL Normal 0.58-0.96 [facility] Comment on above: Order Comment: Fan meade Type: BLOOD SPECIMENOrdering Facility: [facility] Address: [address] [place] [address] Performed By: #### 2 4321-2 ####[facility]ATORYCLIA [id number] [address] Creatinine and Glomerular filtration rate.predicted panel (S/P/Bld) 78 mL/min/1.73m??? Normal >=60 [facility] Comment on above: Order Comment: Fan meade Type: BLOOD SPECIMENOrdering Facility: [facility] Address: [address] [place] [address] Result Comment: Hilda mated Glomerular Filtration Rate [...] Performed By: #### 2 4321-2 ####[facility]ORATORYCLIA [id number] [place] [id number] [place] Glucose [Mass/Vol] 139 mg/dL High 74-99 [facility] Comment on above: Order Comment: Fan meade Type: BLOOD SPECIMENOrdering Facility: [facility] Address: [address] [place] [address] Result Comment: [place] Diabetes Association (ADA) provides guidance for cutoff [...] Standards of Medical Care in Diabetes 2016, [place] Diabetes Association. Diabetes Care. 2016.39(Suppl 1). Performed By: #### 2 4321-2 ####[facility]ORATORYCLIA [id number] [address] [place] Potassium [Moles/Vol] 3.8 mmol/L Normal 3.7-5.1 [facility] Comment on above: Order Comment: Speci men Type: BLOOD SPECIMENOrdering Facility: [facility] Address: [address] [place] [address] Performed By: #### 2 4321-2 ####[facility]ORATORYCLIA [id number] [address] Sodium [Moles/Vol] 137 mmol/L Normal 136-144 [facility] Comment on above: Order Comment: Speci men Type: BLOOD SPECIMENOrdering Facility: [facility] Address: [address] [place] [address] Performed By: #### 2 4321-2 ####[facility]ORATORYCLIA [id number] [address] STATES [facility] Urea nitrogen [Mass/Vol] 24 mg/dL High 7-21 [facility] Comment on above: Order Comment: Speci men Type: BLOOD SPECIMENOrdering Facility: [facility] Address: [address] [place] [address] Performed By: #### 2 4321-2 ####[facility]ORATORYCLIA [id number] [address] [place] CASE MANAGEMon 12-12-2024 CASE MANAGEM Normal [facility] CASE MANAGEM Normal [facility] CBC W Auto Differential pane l (Bld)on 12-12-2024 Basophils (Bld) [#/Vol] 0.03 10*3/uL Normal <0.11 [facility] Comment on above: Order Comment: Speci men Type: BLOOD SPECIMENOrdering Facility: [facility] Address: [address] [place] [address] Performed By: #### 5 7021-8 ####[facility]ORATORYCLIA [id number] [place] [address] [place] Basophils/100 WBC (Bld) 0.3 % Normal [facility] Comment on above: Order Comment: Speci men Type: BLOOD SPECIMENOrdering Facility: [facility] Address: [address] [place] [address] Performed By: #### 5 7021-8 ####[facility]ORATORYCLIA [id number] [place] [address] [place] Differential cell count method Nom (Bld) Auto Normal [facility] Comment on above: Order Comment: Speci men Type: BLOOD SPECIMENOrdering Facility: [facility] Address: [address] [place] [address] Performed By: #### 5 7021-8 ####[facility]ORATORYCLIA [id number] [place] [address] [place] Eosinophils (Bld) [#/Vol] 0.15 10*3/uL Normal <0.46 [facility] Comment on above: Order Comment: Speci men Type: BLOOD SPECIMENOrdering Facility: [facility] Address: [address] [place] [address] Performed By: #### 5 7021-8 ####[facility]ORATORYCLIA [id number] [place] [id number] [place] Eosinophils/100 WBC (Bld) 1.7 % Normal [facility] Comment on above: Order Comment: Speci men Type: BLOOD SPECIMENOrdering Facility: [facility] Address: [address] [place] [address] Performed By: #### 5 7021-8 ####[facility]ORATORYCLIA [id number] [place] [address] [place] Erythrocyte distribution width (RBC) [Ratio] 16.7 % High 11.5-15.0 [facility] Comment on above: Order Comment: Speci men Type: BLOOD SPECIMENOrdering Facility: [facility] Address: [address] [place] [address] Performed By: #### 5 7021-8 ####[facility]ORATORYCLIA [id number] [address] [place] Hematocrit (Bld) [Volume fraction] 24.4 % Low 36.0-46.0 [facility] Comment on above: Order Comment: Speci men Type: BLOOD SPECIMENOrdering Facility: [facility] Address: [address] [place] [address] Performed By: #### 5 7021-8 ####[facility]ORATORYCLIA [id number] [place] [address] [place] Hemoglobin (Bld) [Mass/Vol] 7.8 g/dL Low 11.5-15.5 [facility] Comment on above: Order Comment: Speci men Type: BLOOD SPECIMENOrdering Facility: [facility] Address: [address] [place] [address] Performed By: #### 5 7021-8 ####[facility]ORATORYCLIA [id number] [address] [place] Immature granulocytes (Bld) [#/Vol] 0.10 10*3/uL High <0.10 [facility] Comment on above: Order Comment: Speci men Type: BLOOD SPECIMENOrdering Facility: [facility] Address: [address] [place] [address] Performed By: #### 5 7021-8 ####[facility]ORATORYCLIA [id number] [address] [place] Immature granulocytes/100 WBC (Bld) 1.2 % Normal [facility] Comment on above: Order Comment: Speci men Type: BLOOD SPECIMENOrdering Facility: [facility] Address: [address] [place] [address] Performed By: #### 5 7021-8 ####[facility]ORATORYCLIA [id number] [address] [place] Lymphocytes (Bld) [#/Vol] 1.19 10*3/uL Normal 1.00-4.00 [facility] Comment on above: Order Comment: Speci men Type: BLOOD SPECIMENOrdering Facility: [facility] Address: [address] [place] [address] Performed By: #### 5 7021-8 ####[facility]ORATORYCLIA [id number] [address] Lymphocytes/100 WBC (Bld) 13.7 % Normal [facility] Comment on above: Order Comment: Speci men Type: BLOOD SPECIMENOrdering Facility: [facility] Address: [address] [place] [address] Performed By: #### 5 7021-8 ####[facility]ORATORYCLIA [id number] [address] [place] MCH (RBC) [Entitic mass] 28.1 pg Normal 26.0-34.0 [facility] Comment on above: Order Comment: Speci men Type: BLOOD SPECIMENOrdering Facility: [facility] Address: [address] [place] [address] Performed By: #### 5 7021-8 ####[facility]ORATORYCLIA [id number] [address] MCHC (RBC) [Mass/Vol] 32.0 g/dL Normal 30.5-36.0 [facility] Comment on above: Order Comment: Speci men Type: BLOOD SPECIMENOrdering Facility: [facility] Address: [address] [place] [address] Performed By: #### 5 7021-8 ####[facility]ORATORYCLIA [id number] [address] MCV (RBC) [Entitic vol] 87.8 fL Normal 80.0-100.0 [facility] Comment on above: Order Comment: Speci men Type: BLOOD SPECIMENOrdering Facility: [facility] Address: [address] [place] [address] Performed By: #### 5 7021-8 ####[facility]ORATORYCLIA [id number] [place] [address] [place] Monocytes (Bld) [#/Vol] 0.66 10*3/uL Normal <0.87 [facility] Comment on above: Order Comment: Speci men Type: BLOOD SPECIMENOrdering Facility: [facility] Address: [address] [place] [address] Performed By: #### 5 7021-8 ####[facility]ORATORYCLIA [id number] [address] [place] Monocytes/100 WBC (Bld) 7.6 % Normal [facility] Comment on above: Order Comment: Speci men Type: BLOOD SPECIMENOrdering Facility: [facility] Address: [address] [place] [address] Performed By: #### 5 7021-8 ####[facility]ORATORYCLIA [id number] [address] [place] Neutrophils (Bld) [#/Vol] 6.54 10*3/uL Normal 1.45-7.50 [facility] Comment on above: Order Comment: Speci men Type: BLOOD SPECIMENOrdering Facility: [facility] Address: [address] [place] [address] Performed By: #### 5 7021-8 ####[facility]ORATORYCLIA [id number] [address] [place] Neutrophils/100 WBC (Bld) 75.5 % Normal [facility] Comment on above: Order Comment: Speci men Type: BLOOD SPECIMENOrdering Facility: [facility] Address: [address] [place] [address] Performed By: #### 5 7021-8 ####[facility]ORATORYCLIA [id number] [place] [address] [place] [facility] [place] Nucleated RBC (Bld) [#/Vol] 10*3/uL Normal <0.01 [facility] Comment on above: Order Comment: Speci men Type: BLOOD SPECIMENOrdering Facility: [facility] Address: [address] [place] [address], [place] [address] Performed By: #### 5 7021-8 ####[facility]ORATORYCLIA [id number] [place] [address] [place] Nucleated RBC/100 WBC (Bld) [Ratio] 0.0 /100 WBC Normal [facility] Comment on above: Order Comment: Speci men Type: BLOOD SPECIMENOrdering Facility: [facility] Address: [address] [place] [address] Performed By: #### 5 7021-8 ####[facility]ORATORYCLIA [id number] [place] [address] [place] Platelet mean volume (Bld) [Entitic vol] 8.0 fL Low 9.0-12.7 [facility] Comment on above: Order Comment: Speci men Type: BLOOD SPECIMENOrdering Facility: [facility] Address: [address] [place] [address] Performed By: #### 5 7021-8 ####[facility]ORATORYCLIA [id number] [address] [place] Platelets (Bld) [#/Vol] 571 10*3/uL High 150-400 [facility] Comment on above: Order Comment: Speci men Type: BLOOD SPECIMENOrdering Facility: [facility] Address: [address] [place] [address] Performed By: #### 5 7021-8 ####[facility]ORATORYCLIA [id number] [place] [address] [place] RBC (Bld) [#/Vol] 2.78 10*6/uL Low 3.90-5.20 [facility] Comment on above: Order Comment: Speci men Type: BLOOD SPECIMENOrdering Facility: [facility] Address: [address] [place] [address] Performed By: #### 5 7021-8 ####[facility]ORATORYCLIA [id number] [address] [place] WBC (Bld) [#/Vol] 8.67 10*3/uL Normal 3.70-11.00 [facility] Comment on above: Order Comment: Speci men Type: BLOOD SPECIMENOrdering Facility: [facility] Address: [address] [place] [address] Performed By: #### 5 7021-8 ####[facility]ORATORYCLIA [id number] [place] [address] [place] CNDSon 12-12-2024 CNDS Normal [facility] CONSULT PROGon 12-12-2024 CONSULT PROG [facility] CONSULT PROG [facility] CONSULT PROG Normal [facility] OPERATIVE NOon 12-12-2024 OPERATIVE NO [facility] Basic metabolic 2000 panelon 12-11-2024 Anion gap [Moles/Vol] 11 mmol/L Normal 8-15 [facility] Comment on above: Order Comment: Speci men Type: BLOOD SPECIMENOrdering Facility: [facility] Address: [address] [place] [address] Performed By: #### 2 4321-2 ####[facility]ORATORYCLIA [id number] [place] [address] [place] Calcium [Mass/Vol] 9.1 mg/dL Normal 8.5-10.2 [facility] Comment on above: Order Comment: Speci men Type: BLOOD SPECIMENOrdering Facility: [facility] Address: [address] [place] [address] Performed By: #### 2 4321-2 ####[facility]ORATORYCLIA [id number] [place] [address] [place] Chloride [Moles/Vol] 102 mmol/L Normal 98-107 [facility] Comment on above: Order Comment: Speci men Type: BLOOD SPECIMENOrdering Facility: [facility] Address: [address] [place] [address] Performed By: #### 2 4321-2 ####[facility] LABORATORYCLIA [id number] [place] [address] [place] CO2 [Moles/Vol] 25 mmol/L Normal 22-30 [facility] Comment on above: Order Comment: Speci men Type: BLOOD SPECIMENOrdering Facility: [facility] Address: [address] [place] [address] Performed By: #### 2 4321-2 ####[facility] LABORATORYCLIA [id number] [place] [address] [place] Creatinine [Mass/Vol] 0.80 mg/dL Normal 0.58-0.96 [facility] Comment on above: Order Comment: Fan meade Type: BLOOD SPECIMENOrdering Facility: [facility] Address: [address] [place] [address] Performed By: #### 2 4321-2 ####[facility]ATORYCLIA [id number] [address] Creatinine and Glomerular filtration rate.predicted panel (S/P/Bld) 71 mL/min/1.73m??? Normal >=60 [facility] Comment on above: Order Comment: Fan meade Type: BLOOD SPECIMENOrdering Facility: [facility] Address: [address] [place] [address] Result Comment: Hilda mated Glomerular Filtration Rate [...] Performed By: #### 2 4321-2 ####[facility]ORATORYCLIA [id number] [address] [place] Glucose [Mass/Vol] 203 mg/dL High 74-99 [facility] Comment on above: Order Comment: Fan meade Type: BLOOD SPECIMENOrdering Facility: [facility] Address: [address] [place] [address] Result Comment: The [place] [employer] (ADA) provides guidance for cutoff [...] Standards of Medical Care in Diabetes 2016, [place] [employer]. Diabetes Care. 2016.39(Suppl 1). Performed By: #### 2 4321-2 ####[facility] LABORATORYCLIA [id number] [place] [address] [place] Potassium [Moles/Vol] 3.8 mmol/L Normal 3.7-5.1 [facility] Comment on above: Order Comment: Speci men Type: BLOOD SPECIMENOrdering Facility: [facility] Address: [address] [place] [address] Performed By: #### 2 4321-2 ####[facility]AR[facility] LABORATORYCLIA [id number] [address] [place] Sodium [Moles/Vol] 138 mmol/L Normal 136-144 [facility] Comment on above: Order Comment: Katei halina Type: BLOOD SPECIMENOrdering Facility: [facility] Address: [address] [place] [address] Performed By: #### 2 4321-2 ####VILLARREAL LABORATORYCLIA [id number] [place] [address] [place] Urea nitrogen [Mass/Vol] 33 mg/dL High 7-21 [facility] Comment on above: Order Comment: Speci halina Type: BLOOD SPECIMENOrdering Facility: [facility] Address: [address] [place] [address] Performed By: #### 2 4321-2 ####VILLARRE[facility] LABORATORYCLIA [id number] [address] [place] CASE MANAGEMon 12-11-2024 CASE MANAGEM Normal [facility] CBC W Auto Differential pane l (Bld)on 12-11-2024 Basophils (Bld) [#/Vol] 10*3/uL Normal <0.11 [facility] Comment on above: Order Comment: Speci men Type: BLOOD SPECIMENOrdering Facility: [facility] Address: [address] [place] [address] Performed By: #### 5 7021-8 ####VILLARREAL LABORATORYCLIA [id number] [place] [address] [place] Basophils/100 WBC (Bld) 0.2 % Normal [facility] Comment on above: Order Comment: Speci men Type: BLOOD SPECIMENOrdering Facility: [facility] Address: [address] [place] [address] Performed By: #### 5 7021-8 ####VILLARREAL LABORATORYCLIA [id number] [place] [address] [place] [facility] [place] Differential cell count method Nom (Bld) Auto Normal [facility] Comment on above: Order Comment: Speci men Type: BLOOD SPECIMENOrdering Facility: [facility] Address: [address] [place] [address] Performed By: #### 5 7021-8 ####VILLARREAL LABORATORYCLIA [id number] [place] [address] [place] Eosinophils (Bld) [#/Vol] 0.11 10*3/uL Normal <0.46 [facility] Comment on above: Order Comment: Speci men Type: BLOOD SPECIMENOrdering Facility: [facility] Address: [address] [place] [address] Performed By: #### 5 7021-8 ####VILLARREAL LABORATORYCLIA [id number] [address] [place] Eosinophils/100 WBC (Bld) 1.1 % Normal [facility] Comment on above: Order Comment: Speci men Type: BLOOD SPECIMENOrdering Facility: [facility] Address: [address] [place] [address] Performed By: #### 5 7021-8 ####VILLARREAL LABORATORYCLIA [id number] [place] [address] [place] Erythrocyte distribution width (RBC) [Ratio] 16.8 % High 11.5-15.0 [facility] Comment on above: Order Comment: Speci men Type: BLOOD SPECIMENOrdering Facility: [facility] Address: [address] [place] [address] Performed By: #### 5 7021-8 ####VILLARREAL LABORATORYCLIA [id number] [place] [address] [place] Hematocrit (Bld) [Volume fraction] 25.2 % Low 36.0-46.0 [facility] Comment on above: Order Comment: Speci men Type: BLOOD SPECIMENOrdering Facility: [facility] Address: [address] [place] [address] Performed By: #### 5 7021-8 ####VILLARREAL LABORATORYCLIA [id number] [place] [address] [place] Hemoglobin (Bld) [Mass/Vol] 8.4 g/dL Low 11.5-15.5 [facility] Comment on above: Order Comment: Speci men Type: BLOOD SPECIMENOrdering Facility: [facility] Address: [address] [place] [address] Performed By: #### 5 7021-8 ####VILLARREAL LABORATORYCLIA [id number] [place] [address] [place] Immature granulocytes (Bld) [#/Vol] 0.16 10*3/uL High <0.10 [facility] Comment on above: Order Comment: Speci men Type: BLOOD SPECIMENOrdering Facility: [facility] Address: [address] [place] [address] Performed By: #### 5 7021-8 ####VILLARREAL LABORATORYCLIA [id number] [place] [address] [place] Immature granulocytes/100 WBC (Bld) 1.5 % Normal [facility] Comment on above: Order Comment: Speci men Type: BLOOD SPECIMENOrdering Facility: [facility] Address: [address] [place] [address] Performed By: #### 5 7021-8 ####VILLARREAL LABORATORYCLIA [id number] [place] [address] [place] Lymphocytes (Bld) [#/Vol] 1.13 10*3/uL Normal 1.00-4.00 [facility] Comment on above: Order Comment: Speci men Type: BLOOD SPECIMENOrdering Facility: [facility] Address: [address] [place] [address] Performed By: #### 5 7021-8 ####VILLARREAL LABORATORYCLIA [id number] [address] STATES [facility] Lymphocytes/100 WBC (Bld) 10.9 % Normal [facility] Comment on above: Order Comment: Speci men Type: BLOOD SPECIMENOrdering Facility: [facility] Address: [address] [place] [address] Performed By: #### 5 7021-8 ####VILLARREAL LABORATORYCLIA [id number] [address] [place] MCH (RBC) [Entitic mass] 28.7 pg Normal 26.0-34.0 [facility] Comment on above: Order Comment: Speci men Type: BLOOD SPECIMENOrdering Facility: [facility] Address: [address] [place] [address] Performed By: #### 5 7021-8 ####VILLARREAL LABORATORYCLIA [id number] [address] [place] MCHC (RBC) [Mass/Vol] 33.3 g/dL Normal 30.5-36.0 [facility] Comment on above: Order Comment: Speci men Type: BLOOD SPECIMENOrdering Facility: [facility] Address: [address] [place] [address] Performed By: #### 5 7021-8 ####VILLARREAL LABORATORYCLIA [id number] [address] MCV (RBC) [Entitic vol] 86.0 fL Normal 80.0-100.0 [facility] Comment on above: Order Comment: Speci men Type: BLOOD SPECIMENOrdering Facility: [facility] Address: [address] [place] [address] Performed By: #### 5 7021-8 ####VILLARREAL LABORATORYCLIA [id number] [address] [place] Monocytes (Bld) [#/Vol] 0.64 10*3/uL Normal <0.87 [facility] Comment on above: Order Comment: Speci men Type: BLOOD SPECIMENOrdering Facility: [facility] Address: [address] [place] [address] Performed By: #### 5 7021-8 ####VILLARREAL LABORATORYCLIA [id number] [place] [address] [place] Monocytes/100 WBC (Bld) 6.2 % Normal [facility] Comment on above: Order Comment: Speci men Type: BLOOD SPECIMENOrdering Facility: [facility] Address: [address] [place] [address] Performed By: #### 5 7021-8 ####VILLARREAL LABORATORYCLIA [id number] [place] [address] [place] Neutrophils (Bld) [#/Vol] 8.31 10*3/uL High 1.45-7.50 [facility] Comment on above: Order Comment: Speci men Type: BLOOD SPECIMENOrdering Facility: [facility] Address: [address] [place] [address] Performed By: #### 5 7021-8 ####VILLARREAL LABORATORYCLIA [id number] [place] [address] [place] Neutrophils/100 WBC (Bld) 80.1 % Normal [facility] Comment on above: Order Comment: Speci men Type: BLOOD SPECIMENOrdering Facility: [facility] Address: [address] [place] [address] Performed By: #### 5 7021-8 ####VILLARREAL LABORATORYCLIA [id number] [place] [address] [place] Nucleated RBC (Bld) [#/Vol] 10*3/uL Normal <0.01 [facility] Comment on above: Order Comment: Speci men Type: BLOOD SPECIMENOrdering Facility: [facility] Address: [address] [place] [address] Performed By: #### 5 7021-8 ####VILLARREAL LABORATORYCLIA [id number] [place] [address] [place] Nucleated RBC/100 WBC (Bld) [Ratio] 0.0 /100 WBC Normal [facility] Comment on above: Order Comment: Speci men Type: BLOOD SPECIMENOrdering Facility: [facility] Address: [address] [place] [address] Performed By: #### 5 7021-8 ####VILLARREAL LABORATORYCLIA [id number] [place] [address] [place] Platelet mean volume (Bld) [Entitic vol] 7.9 fL Low 9.0-12.7 [facility] Comment on above: Order Comment: Speci men Type: BLOOD SPECIMENOrdering Facility: [facility] Address: [address] [place] [address] Performed By: #### 5 7021-8 ####[facility] LABORATORYCLIA [id number] [place] [address] [place] Platelets (Bld) [#/Vol] 600 10*3/uL High 150-400 [facility] Comment on above: Order Comment: Speci men Type: BLOOD SPECIMENOrdering Facility: [facility] Address: [address] [place] [address] Performed By: #### 5 7021-8 ####[facility]ORATORYCLIA [id number] [place] [address] [place] RBC (Bld) [#/Vol] 2.93 10*6/uL Low 3.90-5.20 [facility] Comment on above: Order Comment: Speci men Type: BLOOD SPECIMENOrdering Facility: [facility] Address: [address] [place] [address] Performed By: #### 5 7021-8 ####[facility]ORATORYCLIA [id number] [address] [place] WBC (Bld) [#/Vol] 10.37 10*3/uL Normal 3.70-11.00 [facility] Comment on above: Order Comment: Speci men Type: BLOOD SPECIMENOrdering Facility: [facility] Address: [address] [place], [place] [id number] Performed By: #### 5 7021-8 ####[facility] LABORATORYCLIA [id number] [place] [id number] [facility] [place] CONSULT PROGon 12-11-2024 CONSULT PROG Normal [facility] CONSULT PROG Normal [facility] CONSULT PROG Normal [facility] CONSULT PROG Normal [facility] CONSULT PROG Normal [facility] NUTRITIONon 12-11-2024 NUTRITION Normal [facility] ANES POSTPROC EVALon 025 ANES POSTPROC EVAL Normal [facility] ANES PRE-OPon 12-10-2024 ANES PRE-OP Normal [facility] BRIEF OP NOTon 12-10-2024 BRIEF OP NOT Normal [facility] Basic metabolic 2000 panelon 12-10-2024 Anion gap [Moles/Vol] 10 mmol/L Normal 8-15 [facility] Comment on above: Order Comment: Speci men Type: BLOOD SPECIMENOrdering Facility: [facility] Address: [address] [place] [address] Performed By: #### 2 4321-2 ####[facility] LABORATORYCLIA [id number] [place] [address] [place] Calcium [Mass/Vol] 8.9 mg/dL Normal 8.5-10.2 [facility] Comment on above: Order Comment: Speci men Type: BLOOD SPECIMENOrdering Facility: [facility] Address: [address] [place] [address] Performed By: #### 2 4321-2 ####[facility]ORATORYCLIA [id number] [place] [address] [place] Chloride [Moles/Vol] 102 mmol/L Normal 98-107 [facility] Comment on above: Order Comment: Speci men Type: BLOOD SPECIMENOrdering Facility: [facility] Address: [address] [place] [address] Performed By: #### 2 4321-2 ####[facility]ORATORYCLIA [id number] [place] [address] [place] CO2 [Moles/Vol] 26 mmol/L Normal 22-30 [facility] Comment on above: Order Comment: Speci men Type: BLOOD SPECIMENOrdering Facility: [facility] Address: [address] [place] [address] Performed By: #### 2 4321-2 ####VILLAR[facility] LABORATORYCLIA [id number] [place] [address] [place] Creatinine [Mass/Vol] 0.68 mg/dL Normal 0.58-0.96 [facility] Comment on above: Order Comment: Speci men Type: BLOOD SPECIMENOrdering Facility: [facility] Address: [address] [place] [address] Performed By: #### 2 4321-2 ####VILLARRE[facility] LABORATORYCLIA [id number] [place] [id number] [facility] Creatinine and Glomerular filtration rate.predicted panel (S/P/Bld) 84 mL/min/1.73m??? Normal >=60 [facility] Comment on above: Order Comment: Fan men Type: BLOOD SPECIMENOrdering Facility: [facility] Address: [address] [place] [address] Result Comment: Hilda mated Glomerular Filtration Rate [...] Performed By: #### 2 4321-2 ####VILLARREAL LABORATORYCLIA [id number] [place] [id number] [place] Glucose [Mass/Vol] 79 mg/dL Normal 74-99 [facility] Comment on above: Order Comment: Fan meade Type: BLOOD SPECIMENOrdering Facility: [facility] Address: [address] [place] [address] Result Comment: The [place] Diabetes Association (ADA) provides guidance for cutoff [...] Standards of Medical Care in Diabetes 2016, [place] [employer]. Diabetes Care. 2016.39(Suppl 1). Performed By: #### 2 4321-2 ####VILLARREAL LABORATORYCLIA [id number] [place] [address] [place] Potassium [Moles/Vol] 4.1 mmol/L Normal 3.7-5.1 [facility] Comment on above: Order Comment: Speci men Type: BLOOD SPECIMENOrdering Facility: [facility] Address: [address] [place] [address] Performed By: #### 2 4321-2 ####VILLAR[facility] LABORATORYCLIA [id number] [address] [place] Sodium [Moles/Vol] 138 mmol/L Normal 136-144 [facility] Comment on above: Order Comment: Speci men Type: BLOOD SPECIMENOrdering Facility: [facility] Address: [address] [place] [address] Performed By: #### 2 4321-2 ####VILL[facility] LABORATORYCLIA [id number] [address] [place] Urea nitrogen [Mass/Vol] 45 mg/dL High 7-21 [facility] Comment on above: Order Comment: Speci men Type: BLOOD SPECIMENOrdering Facility: [facility] Address: [address] [place] [address] Performed By: #### 2 4321-2 ####VILL[facility] LABORATORYCLIA [id number] [address] [place] CASE MANAGEMon 12-10-2024 CASE MANAGEM Normal [facility] CBC W Auto Differential pane l (Bld)on 12-10-2024 Basophils (Bld) [#/Vol] 10*3/uL Normal <0.11 [facility] Comment on above: Order Comment: Speci men Type: BLOOD SPECIMENOrdering Facility: [facility] Address: [address] [place] [address] Performed By: #### 5 7021-8 ####VILLARRE[facility] LABORATORYCLIA [id number] [address] [place] Basophils/100 WBC (Bld) 0.2 % Normal [facility] Comment on above: Order Comment: Speci men Type: BLOOD SPECIMENOrdering Facility: [facility] Address: [address] [place] [address] Performed By: #### 5 7021-8 ####VILLARRE[facility] LABORATORYCLIA [id number] [address] [place] Differential cell count method Nom (Bld) Auto Normal [facility] Comment on above: Order Comment: Speci men Type: BLOOD SPECIMENOrdering Facility: [facility] Address: [address] [place] [address] Performed By: #### 5 7021-8 ####VILLARRE[facility] LABORATORYCLIA [id number] [place] [address] [place] Eosinophils (Bld) [#/Vol] 0.07 10*3/uL Normal <0.46 [facility] Comment on above: Order Comment: Speci men Type: BLOOD SPECIMENOrdering Facility: [facility] Address: [address] [place] [address] Performed By: #### 5 7021-8 ####VILLAR[facility] LABORATORYCLIA [id number] [address] Eosinophils/100 WBC (Bld) 0.6 % Normal [facility] Comment on above: Order Comment: Speci men Type: BLOOD SPECIMENOrdering Facility: [facility] Address: [address] [place] [address] Performed By: #### 5 7021-8 ####V[facility] LABORATORYCLIA [id number] [address] [place] Erythrocyte distribution width (RBC) [Ratio] 16.6 % High 11.5-15.0 [facility] Comment on above: Order Comment: Speci men Type: BLOOD SPECIMENOrdering Facility: [facility] Address: [address] [place] [address] Performed By: #### 5 7021-8 ####V[facility] LABORATORYCLIA [id number] [address] [place] Hematocrit (Bld) [Volume fraction] 23.9 % Low 36.0-46.0 [facility] Comment on above: Order Comment: Speci men Type: BLOOD SPECIMENOrdering Facility: [facility] Address: [address] [place] [address] Performed By: #### 5 7021-8 ####V[facility] LABORATORYCLIA [id number] [place] [address] [place] Hemoglobin (Bld) [Mass/Vol] 7.8 g/dL Low 11.5-15.5 [facility] Comment on above: Order Comment: Speci men Type: BLOOD SPECIMENOrdering Facility: [facility] Address: [address] [place] [address] Performed By: #### 5 7021-8 ####V[facility] LABORATORYCLIA [id number] [place] [address] [place] Immature granulocytes (Bld) [#/Vol] 0.16 10*3/uL High <0.10 [facility] Comment on above: Order Comment: Speci men Type: BLOOD SPECIMENOrdering Facility: [facility] Address: [address] [place] [address] Performed By: #### 5 7021-8 ####V[facility] LABORATORYCLIA [id number] [address] [place] Immature granulocytes/100 WBC (Bld) 1.4 % Normal [facility] Comment on above: Order Comment: Speci men Type: BLOOD SPECIMENOrdering Facility: [facility] Address: [address] [place] [address] Performed By: #### 5 7021-8 ####V[facility] LABORATORYCLIA [id number] [place] [address] [place] Lymphocytes (Bld) [#/Vol] 1.18 10*3/uL Normal 1.00-4.00 [facility] Comment on above: Order Comment: Speci men Type: BLOOD SPECIMENOrdering Facility: [facility] Address: [address] [place] [address] Performed By: #### 5 7021-8 ####V[facility] LABORATORYCLIA [id number] [address] [place] Lymphocytes/100 WBC (Bld) 10.3 % Normal [facility] Comment on above: Order Comment: Speci men Type: BLOOD SPECIMENOrdering Facility: [facility] Address: [address] [place] [address] Performed By: #### 5 7021-8 ####V[facility] LABORATORYCLIA [id number] [address] MCH (RBC) [Entitic mass] 28.9 pg Normal 26.0-34.0 [facility] Comment on above: Order Comment: Speci men Type: BLOOD SPECIMENOrdering Facility: [facility] Address: [address] [place] [address] Performed By: #### 5 7021-8 ####[facility] LABORATORYCLIA [id number] [address] [place] MCHC (RBC) [Mass/Vol] 32.6 g/dL Normal 30.5-36.0 [facility] Comment on above: Order Comment: Speci men Type: BLOOD SPECIMENOrdering Facility: [facility] Address: [address] [place] [address] Performed By: #### 5 7021-8 ####[facility] LABORATORYCLIA [id number] [address] MCV (RBC) [Entitic vol] 88.5 fL Normal 80.0-100.0 [facility] Comment on above: Order Comment: Speci men Type: BLOOD SPECIMENOrdering Facility: [facility] Address: [address] [place] [address] Performed By: #### 5 7021-8 ####[facility] LABORATORYCLIA [id number] [address] [place] Monocytes (Bld) [#/Vol] 0.70 10*3/uL Normal <0.87 [facility] Comment on above: Order Comment: Speci men Type: BLOOD SPECIMENOrdering Facility: [facility] Address: [address] [place] [address] Performed By: #### 5 7021-8 ####[facility] LABORATORYCLIA [id number] [address] Monocytes/100 WBC (Bld) 6.1 % Normal [facility] Comment on above: Order Comment: Speci men Type: BLOOD SPECIMENOrdering Facility: [facility] Address: [address] [place] [address] Performed By: #### 5 7021-8 ####[facility] LABORATORYCLIA [id number] [place] [address] [place] Neutrophils (Bld) [#/Vol] 9.32 10*3/uL High 1.45-7.50 [facility] Comment on above: Order Comment: Speci men Type: BLOOD SPECIMENOrdering Facility: [facility] Address: [address] [place] [address] Performed By: #### 5 7021-8 ####[facility] LABORATORYCLIA [id number] [address] [place] Neutrophils/100 WBC (Bld) 81.4 % Normal [facility] Comment on above: Order Comment: Speci men Type: BLOOD SPECIMENOrdering Facility: [facility] Address: [address] [place] [address] Performed By: #### 5 7021-8 ####[facility] LABORATORYCLIA [id number] [place] [address] [place] Nucleated RBC (Bld) [#/Vol] 10*3/uL Normal <0.01 [facility] Comment on above: Order Comment: Speci men Type: BLOOD SPECIMENOrdering Facility: [facility] Address: [address] [place] [address] Performed By: #### 5 7021-8 ####[facility] LABORATORYCLIA [id number] [address] Nucleated RBC/100 WBC (Bld) [Ratio] 0.0 /100 WBC Normal [facility] Comment on above: Order Comment: Speci men Type: BLOOD SPECIMENOrdering Facility: [facility] Address: [address] [place] [address] Performed By: #### 5 7021-8 ####[facility] LABORATORYCLIA [id number] [address] [place] Platelet mean volume (Bld) [Entitic vol] 8.1 fL Low 9.0-12.7 [facility] Comment on above: Order Comment: Speci men Type: BLOOD SPECIMENOrdering Facility: [facility] Address: [address] [place] [address] Performed By: #### 5 7021-8 ####[facility] LABORATORYCLIA [id number] [place] [address] [facility] [place] Platelets (Bld) [#/Vol] 579 10*3/uL High 150-400 [facility] Comment on above: Order Comment: Speci men Type: BLOOD SPECIMENOrdering Facility: [facility] Address: [address] [place] [address] Performed By: #### 5 7021-8 ####[facility] LABORATORYCLIA [id number] [place] [address] [place] RBC (Bld) [#/Vol] 2.70 10*6/uL Low 3.90-5.20 [facility] Comment on above: Order Comment: Speci men Type: BLOOD SPECIMENOrdering Facility: [facility] Address: [address] [place] [address] Performed By: #### 5 7021-8 ####[facility] LABORATORYCLIA [id number] [place] [id number] [place] WBC (Bld) [#/Vol] 11.45 10*3/uL High 3.70-11.00 [facility] Comment on above: Order Comment: Speci men Type: BLOOD SPECIMENOrdering Facility: [facility] Address: [address] [place] [address] Performed By: #### 5 7021-8 ####[facility] LABORATORYCLIA [id number] [place] [address] [facility] [place] CONSULT PROGon 12-10-2024 CONSULT PROG Normal [facility] CONSULT PROG Normal [facility] CONSULT PROG Normal [facility] CONSULT PROG Normal [facility] OPERATIVE NOon 12-10-2024 OPERATIVE NO Normal [facility] SURGICAL PATHOLOGYon 025 CASE REPORT [facility] Comment on above: Order Comment: Speci men Type: TISSUE SPECIMENOrdering Facility: [facility] Address: [address] [place] [address] Result Comment: Surg ical Pathology Report Case: [id number] Provider: José Miguel Morgan MD Collected: 12/10/2024 07:37 AMOrdering Location: [facility] Endoscopy Received: 12/10/2024 08:27 AMPathologist: Jesús Jeff MDSpecimens: A) - Small Bowel, Duodenum, Biopsy, sprue B) - Stomach, Biopsy, hp C) - Esophagus, Biopsy, at 30 cm r/o krystina Performed By: #### S ####[facility] LABCLIA [id number] [address] OF [facility] LABCLIA [id number] [address] FINAL DIAGNOSIS Normal [facility] Comment on above: Order Comment: Speci men Type: TISSUE SPECIMENOrdering Facility: [facility] Address: [address] [place] [address] Result Comment: A. D uodenum, biopsy:- Focal gastric surface metaplasia associated with mild regenerative epithelial changes.- No other significant pathologic alteration.B. Stomach, biopsy:- Reactive gastropathy.- No morphologic evidence of Helicobacter pylori.C. Esophagus at 30 cm, biopsy:- Fragments of of unremarkable squamous mucosa.- No evidence of Krystina.JRG/mm/12/11/2024 Performed By: #### S ####[facility] LABCLIA [id number] [address] LABCLIA [id number] [address] FINAL PERFORMING LAB Normal [facility] Comment on above: Order Comment: Speci men Type: TISSUE SPECIMENOrdering Facility: [facility] Address: [address] [place] [address] Result Comment: Diag nostic interpretation performed at: [facility], [address] [place] [address] CLIA# [id number] Director: Manfred Diallo MD Performed By: #### S ####[facility] LABCLIA [id number] [place] [id number] [facility] LABCLIA [id number] [address] STATES OF [facility] GROSS DESCRIPTION [facility] Comment on above: Order Comment: Speci men Type: TISSUE SPECIMENOrdering Facility: [facility] Address: [address] [place] [address] Result Comment: A. S mall Bowel, Duodenum, [...] in one cassette.Gross examination performed at [facility], [address] [place], [place] [address]AMS December 10, 2024 10:50 AM Performed By: #### S ####[facility] LABCLIA [id number] [place] [id number] [facility] LABCLIA [id number] [address] [place] THERAPY NTon 12-10-2024 THERAPY NT [facility] THERAPY NT [facility] Basic metabolic 2000 panelon 12-09-2024 Anion gap [Moles/Vol] 10 mmol/L Normal 8-15 [facility] Comment on above: Order Comment: Speci men Type: BLOOD SPECIMENOrdering Facility: [facility] Address: [address] [place] [address] Performed By: #### 2 4321-2, 18451-3, 2276-4 ####[facility]ORATORYCLIA [id number] [place] [address] [place] Calcium [Mass/Vol] 9.3 mg/dL Normal 8.5-10.2 [facility] Comment on above: Order Comment: Speci men Type: BLOOD SPECIMENOrdering Facility: [facility] Address: [address] [place] [address] Performed By: #### 2 4321-2, 47423-3, 2275-4 ####[facility] LABORATORYCLIA [id number] [place] [address] [place] Chloride [Moles/Vol] 100 mmol/L Normal 98-107 [facility] Comment on above: Order Comment: Speci men Type: BLOOD SPECIMENOrdering Facility: [facility] Address: [address] [place] [address] Performed By: #### 2 4321-2, 08977-2, 2276-02 ####[facility] LABORATORYCLIA [id number] [place] [address] [place] CO2 [Moles/Vol] 26 mmol/L Normal 22-30 [facility] Comment on above: Order Comment: Speci men Type: BLOOD SPECIMENOrdering Facility: [facility] Address: [address] [place] [address] Performed By: #### 2 4321-2, 76601-2, 2276-02 ####[facility] LABORATORYCLIA [id number] [place] [address] [place] Creatinine [Mass/Vol] 0.80 mg/dL Normal 0.58-0.96 [facility] Comment on above: Order Comment: Speci men Type: BLOOD SPECIMENOrdering Facility: [facility] Address: [address] [place] [address] Performed By: #### 2 4321-2, 80213-4, 4 ####[facility] LABORATORYCLIA [id number] [place] [id number] [facility] Creatinine and Glomerular filtration rate.predicted panel (S/P/Bld) 71 mL/min/1.73m??? Normal >=60 [facility] Comment on above: Order Comment: Speci men Type: BLOOD SPECIMENOrdering Facility: [facility] Address: [address] [place] [address] Result Comment: Hilda mated Glomerular Filtration Rate [...] actual GFR. Performed By: #### 2 4321-2, 68876-2, 2275-4 ####[facility]ORATORYCLIA [id number] [place] [address] [place] Glucose [Mass/Vol] 151 mg/dL High 74-99 [facility] Comment on above: Order Comment: Fan meade Type: BLOOD SPECIMENOrdering Facility: [facility] Address: [address] [place] [address] Result Comment: [place] Diabetes Association (ADA) provides guidance for cutoff [...] Standards of Medical Care in Diabetes 2016, [place] Diabetes Association. Diabetes Care. 2016.39(Suppl 1). Performed By: #### 2 4321-2, 21536-0, 2276-02 ####[facility]ORATORYCLIA [id number] [place] [address] [place] Potassium [Moles/Vol] 4.5 mmol/L Normal 3.7-5.1 [facility] Comment on above: Order Comment: Fan meade Type: BLOOD SPECIMENOrdering Facility: [facility] Address: [address] [place] [address] Performed By: #### 2 4321-2, 41553-6, 2275-4 ####[facility]ORATORYCLIA [id number] [place] [address] [place] Sodium [Moles/Vol] 136 mmol/L Normal 136-144 [facility] Comment on above: Order Comment: Speci men Type: BLOOD SPECIMENOrdering Facility: [facility] Address: [address] [place] [address] Performed By: #### 2 4321-2, 87955-3, 6-4 ####[facility] LABORATORYCLIA [id number] [address] STATES [facility] Urea nitrogen [Mass/Vol] 43 mg/dL High 7-21 [facility] Comment on above: Order Comment: Speci men Type: BLOOD SPECIMENOrdering Facility: [facility] Address: [address] [place] [address] Performed By: #### 2 4321-2, 01443-6, 2276-02 ####[facility] LABORATORYCLIA [id number] [address] [place] CBC W Auto Differential pane l (Bld)on 12-09-2024 Basophils (Bld) [#/Vol] 10*3/uL Normal <0.11 [facility] Comment on above: Order Comment: Speci men Type: BLOOD SPECIMENOrdering Facility: [facility] Address: [address] [place] [address] Performed By: #### 5 7021-8 ####[facility] LABORATORYCLIA [id number] [address] [place] Basophils/100 WBC (Bld) 0.1 % Normal [facility] Comment on above: Order Comment: Speci men Type: BLOOD SPECIMENOrdering Facility: [facility] Address: [address] [place] [address] Performed By: #### 5 7021-8 ####[facility] LABORATORYCLIA [id number] [address] Differential cell count method Nom (Bld) Auto Normal [facility] Comment on above: Order Comment: Speci men Type: BLOOD SPECIMENOrdering Facility: [facility] Address: [address] [place] [address] Performed By: #### 5 7021-8 ####[facility] LABORATORYCLIA [id number] [address] Eosinophils (Bld) [#/Vol] 0.15 10*3/uL Normal <0.46 [facility] Comment on above: Order Comment: Speci men Type: BLOOD SPECIMENOrdering Facility: [facility] Address: [address] [place] [address] Performed By: #### 5 7021-8 ####[facility] LABORATORYCLIA [id number] [address] Eosinophils/100 WBC (Bld) 1.4 % Normal [facility] Comment on above: Order Comment: Speci men Type: BLOOD SPECIMENOrdering Facility: [facility] Address: [address] [place] [address] Performed By: #### 5 7021-8 ####[facility] LABORATORYCLIA [id number] [address] [place] Erythrocyte distribution width (RBC) [Ratio] 16.4 % High 11.5-15.0 [facility] Comment on above: Order Comment: Speci men Type: BLOOD SPECIMENOrdering Facility: [facility] Address: [address] [place] [address] Performed By: #### 5 7021-8 ####[facility] LABORATORYCLIA [id number] [address] Hematocrit (Bld) [Volume fraction] 24.0 % Low 36.0-46.0 [facility] Comment on above: Order Comment: Speci men Type: BLOOD SPECIMENOrdering Facility: [facility] Address: [address] [place] [address] Performed By: #### 5 7021-8 ####[facility] LABORATORYCLIA [id number] [address] [place] Hemoglobin (Bld) [Mass/Vol] 7.6 g/dL Low 11.5-15.5 [facility] Comment on above: Order Comment: Speci men Type: BLOOD SPECIMENOrdering Facility: [facility] Address: [address] [place] [address] Performed By: #### 5 7021-8 ####[facility] LABORATORYCLIA [id number] [address] [place] Immature granulocytes (Bld) [#/Vol] 0.23 10*3/uL High <0.10 [facility] Comment on above: Order Comment: Speci men Type: BLOOD SPECIMENOrdering Facility: [facility] Address: [address] [place] [address] Performed By: #### 5 7021-8 ####[facility] LABORATORYCLIA [id number] [address] Immature granulocytes/100 WBC (Bld) 2.1 % Normal [facility] Comment on above: Order Comment: Speci men Type: BLOOD SPECIMENOrdering Facility: [facility] Address: [address] [place] [address] Performed By: #### 5 7021-8 ####[facility] LABORATORYCLIA [id number] [address] [place] Lymphocytes (Bld) [#/Vol] 1.43 10*3/uL Normal 1.00-4.00 [facility] Comment on above: Order Comment: Speci men Type: BLOOD SPECIMENOrdering Facility: [facility] Address: [address] [place] [address] Performed By: #### 5 7021-8 ####[facility] LABORATORYCLIA [id number] [address] Lymphocytes/100 WBC (Bld) 13.3 % Normal [facility] Comment on above: Order Comment: Speci men Type: BLOOD SPECIMENOrdering Facility: [facility] Address: [address] [place] [address] Performed By: #### 5 7021-8 ####[facility] LABORATORYCLIA [id number] [place] [address] [place] MCH (RBC) [Entitic mass] 27.9 pg Normal 26.0-34.0 [facility] Comment on above: Order Comment: Speci men Type: BLOOD SPECIMENOrdering Facility: [facility] Address: [address] [place] [address] Performed By: #### 5 7021-8 ####[facility] LABORATORYCLIA [id number] [address] [place] MCHC (RBC) [Mass/Vol] 31.7 g/dL Normal 30.5-36.0 [facility] Comment on above: Order Comment: Speci men Type: BLOOD SPECIMENOrdering Facility: [facility] Address: [address] [place] [address] Performed By: #### 5 7021-8 ####[facility] LABORATORYCLIA [id number] [address] MCV (RBC) [Entitic vol] 88.2 fL Normal 80.0-100.0 [facility] Comment on above: Order Comment: Speci men Type: BLOOD SPECIMENOrdering Facility: [facility] Address: [address] [place] [address] Performed By: #### 5 7021-8 ####[facility] LABORATORYCLIA [id number] [address] [place] Monocytes (Bld) [#/Vol] 0.62 10*3/uL Normal <0.87 [facility] Comment on above: Order Comment: Speci men Type: BLOOD SPECIMENOrdering Facility: [facility] Address: [address] [place] [address] Performed By: #### 5 7021-8 ####[facility] LABORATORYCLIA [id number] [address] Monocytes/100 WBC (Bld) 5.8 % Normal [facility] Comment on above: Order Comment: Speci men Type: BLOOD SPECIMENOrdering Facility: [facility] Address: [address] [place] [address] Performed By: #### 5 7021-8 ####[facility] LABORATORYCLIA [id number] [place] [address] [place] Neutrophils (Bld) [#/Vol] 8.31 10*3/uL High 1.45-7.50 [facility] Comment on above: Order Comment: Speci men Type: BLOOD SPECIMENOrdering Facility: [facility] Address: [address] [place] [address] Performed By: #### 5 7021-8 ####[facility] LABORATORYCLIA [id number] [address] Neutrophils/100 WBC (Bld) 77.3 % Normal [facility] Comment on above: Order Comment: Speci men Type: BLOOD SPECIMENOrdering Facility: [facility] Address: [address] [place] [address] Performed By: #### 5 7021-8 ####[facility] LABORATORYCLIA [id number] [address] [place] Nucleated RBC (Bld) [#/Vol] 10*3/uL Normal <0.01 [facility] Comment on above: Order Comment: Speci men Type: BLOOD SPECIMENOrdering Facility: [facility] Address: [address] [place] [address] Performed By: #### 5 7021-8 ####[facility] LABORATORYCLIA [id number] [address] Nucleated RBC/100 WBC (Bld) [Ratio] 0.0 /100 WBC Normal [facility] Comment on above: Order Comment: Speci men Type: BLOOD SPECIMENOrdering Facility: [facility] Address: [address] [place] [address] Performed By: #### 5 7021-8 ####[facility] LABORATORYCLIA [id number] [address] [place] Platelet mean volume (Bld) [Entitic vol] 8.3 fL Low 9.0-12.7 [facility] Comment on above: Order Comment: Speci men Type: BLOOD SPECIMENOrdering Facility: [facility] Address: [address] [place] [address] Performed By: #### 5 7021-8 ####[facility] LABORATORYCLIA [id number] [address] [place] Platelets (Bld) [#/Vol] 577 10*3/uL High 150-400 [facility] Comment on above: Order Comment: Speci men Type: BLOOD SPECIMENOrdering Facility: [facility] Address: [address] [place] [address] Performed By: #### 5 7021-8 ####[facility]ORATORYCLIA [id number] [address] [place] RBC (Bld) [#/Vol] 2.72 10*6/uL Low 3.90-5.20 [facility] Comment on above: Order Comment: Speci men Type: BLOOD SPECIMENOrdering Facility: [facility] Address: [address] [place] [address] Performed By: #### 5 7021-8 ####[facility]ORATORYCLIA [id number] [address] [place] WBC (Bld) [#/Vol] 10.75 10*3/uL Normal 3.70-11.00 [facility] Comment on above: Order Comment: Katei men Type: BLOOD SPECIMENOrdering Facility: [facility] Address: [address] [place] [address] Performed By: #### 5 7021-8 ####[facility]ORATORYCLIA [id number] [address] CELIAC SCREENon 12-09-2024 GLIAD DEAMIDATED IGA QUAL Negative Normal Negative, Test not Indicated [facility] Comment on above: Order Comment: Fan meade Type: BLOOD SPECIMENOrdering Facility: [facility] Address: [address] [place] [address] Result Comment: This is used as an aid in diagnosis of celiac disease. Clinical correlation is required.The following results were obtained with an [employer] QUANTA Lite Gliadin IgA JOE Gliadin. Gliadin IgA values obtained with different manufacturers' assay methods may not be used interchangeably. The magnitude of the reported IgA levels cannot be correlated to an endpoint titer. Performed By: #### L [id number] ####[facility] LABCLIA [id number] [address] [place] Gliadin peptide IgA Qn (S) 2 Units Normal <20 [facility] Comment on above: Order Comment: Speci men Type: BLOOD SPECIMENOrdering Facility: [facility] Address: [address] [place] [address] Performed By: #### L [id number] ####[facility] LABCLIA [id number] [place] [address] [place] INTERPRETATION No serological evidence of celiac disease, however, if celiac disease is clinically suspected and patient is not on gluten-free diet, histological diagnosis may be considered. HLA testing may help with risk assessment. Normal [facility] Comment on above: Order Comment: Specleroy meade Type: BLOOD SPECIMENOrdering Facility: [facility] Address: [address] [place] [address] Performed By: #### L [id number] ####[facility] LABCLIA [id number] [address] TRANSGLUTAMINASE IGA ABS INTERPRETATION Negative Normal Negative [facility] Comment on above: Order Comment: Fan meade Type: BLOOD SPECIMENOrdering Facility: [facility] Address: [address] [place] [address] Result Comment: The following results were obtained with Fa[employer] Lite R h-tTG IgA JOE.???R h-tTG IgA values obtained with different manufacturers' assay methods may not be used interchangeably. The magnitude of the reported IgA levels cannot be corelated to an endpoint???concentration.This is used as an aid in diagnosis of celiac disease. Clinical correlation is required. Performed By: #### L [id number] ####[facility] LABCLIA [id number] [place] [address] [place] tTG IgA Qn (S) <2 Normal <4 [facility] Comment on above: Order Comment: Fan meade Type: BLOOD SPECIMENOrdering Facility: [facility] Address: [address] [place] [address] Performed By: #### L [id number] ####[facility] LABCLIA [id number] [place] [address] [place] CONSULT PROGon 12-09-2024 CONSULT PROG Normal [facility] CONSULT PROG Normal [facility] CONSULT PROG [facility] Ferritin SerPl-mCncon 2024 Ferritin [Mass/Vol] 1588.0 ng/mL High 14.7-205.1 [facility] Comment on above: Order Comment: Speci men Type: BLOOD SPECIMENOrdering Facility: [facility] Address: [address] [place] [address] Performed By: #### 2 4321-2, 03889-3, 2275-4 ####[facility] LABORATORYCLIA [id number] [place] [address] [place] Haptoglob SerPl-mCncon 12-09 Haptoglobin [Mass/Vol] 483 mg/dL High 31-238 [facility] Comment on above: Order Comment: Speci men Type: BLOOD SPECIMENOrdering Facility: [facility] Address: [address] [place] [address] Performed By: #### 4 542-7 ####[facility] LABCLIA [id number] [place] [address] [place] IgA SerPl-mCncon 12-09-2024 IgA [Mass/Vol] 166 mg/dL Normal 70-400 [facility] Comment on above: Order Comment: Speci men Type: BLOOD SPECIMENOrdering Facility: [facility] Address: [address] [place] [address] Performed By: #### 2 458-8 ####[facility] LABCLIA [id number] [place] [address] [place] Iron and Iron binding capaci ty panelon 12-09-2024 Iron [Mass/Vol] 91 ug/dL Normal 41-186 [facility] Comment on above: Order Comment: Speci men Type: BLOOD SPECIMENOrdering Facility: [facility] Address: [address] [place] [address] Performed By: #### 2 4321-2, 14576-4, 2275-4 ####[facility] LABORATORYCLIA [id number] [place] [address] [place] Iron binding capacity [Mass/Vol] 223 ug/dL Low 232-386 [facility] Comment on above: Order Comment: Speci men Type: BLOOD SPECIMENOrdering Facility: [facility] Address: [address] [place] [address] Performed By: #### 2 4321-2, 08966-1, 6-4 ####[facility] LABORATORYCLIA [id number] [address] Iron/TIBC [Molar ratio] 40.8 % Normal 15.0-57.0 [facility] Comment on above: Order Comment: Speci men Type: BLOOD SPECIMENOrdering Facility: [facility] Address: [address] [place] [address] Performed By: #### 2 4321-2, 10419-7, 6-4 ####[facility]ORATORYCLIA [id number] [address] CBC W Auto Differential pane l (Bld)on 12-08-2024 Basophils (Bld) [#/Vol] 0.03 10*3/uL Normal <0.11 [facility] Comment on above: Order Comment: Speci men Type: BLOOD SPECIMENOrdering Facility: [facility] Address: [address] [place] [address] Performed By: #### 5 7021-8 ####[facility] LABORATORYCLIA [id number] [address] Basophils/100 WBC (Bld) 0.3 % Normal [facility] Comment on above: Order Comment: Speci men Type: BLOOD SPECIMENOrdering Facility: [facility] Address: [address] [place] [address] Performed By: #### 5 7021-8 ####[facility] LABORATORYCLIA [id number] [address] Differential cell count method Nom (Bld) Auto Normal [facility] Comment on above: Order Comment: Speci men Type: BLOOD SPECIMENOrdering Facility: [facility] Address: [address] [place] [address] Performed By: #### 5 7021-8 ####[facility] LABORATORYCLIA [id number] [address] Eosinophils (Bld) [#/Vol] 0.13 10*3/uL Normal <0.46 [facility] Comment on above: Order Comment: Speci men Type: BLOOD SPECIMENOrdering Facility: [facility] Address: [address] [place] [address] Performed By: #### 5 7021-8 ####[facility] LABORATORYCLIA [id number] [address] STATES [facility] Eosinophils/100 WBC (Bld) 1.1 % Normal [facility] Comment on above: Order Comment: Speci men Type: BLOOD SPECIMENOrdering Facility: [facility] Address: [address] [place] [address] Performed By: #### 5 7021-8 ####VILLARREAL LABORATORYCLIA [id number] [address] Erythrocyte distribution width (RBC) [Ratio] 16.0 % High 11.5-15.0 [facility] Comment on above: Order Comment: Speci men Type: BLOOD SPECIMENOrdering Facility: [facility] Address: [address] [place] [address] Performed By: #### 5 7021-8 ####VILLARREAL LABORATORYCLIA [id number] [address] Hematocrit (Bld) [Volume fraction] 24.0 % Low 36.0-46.0 [facility] [place] Comment on above: Order Comment: Speci men Type: BLOOD SPECIMENOrdering Facility: [facility] Address: [address] [place] [address] Performed By: #### 5 7021-8 ####VILLARREAL LABORATORYCLIA [id number] [address] Hemoglobin (Bld) [Mass/Vol] 7.7 g/dL Low 11.5-15.5 [facility] [place] Comment on above: Order Comment: Speci men Type: BLOOD SPECIMENOrdering Facility: [facility] Address: [address] [place] [address] Performed By: #### 5 7021-8 ####VILLARREAL LABORATORYCLIA [id number] [place] [address] [place] Immature granulocytes (Bld) [#/Vol] 0.19 10*3/uL High <0.10 [facility] Comment on above: Order Comment: Speci men Type: BLOOD SPECIMENOrdering Facility: [facility] Address: [address] [place] [address] Performed By: #### 5 7021-8 ####VILLARREAL LABORATORYCLIA [id number] [address] Immature granulocytes/100 WBC (Bld) 1.6 % Normal [facility] Comment on above: Order Comment: Speci men Type: BLOOD SPECIMENOrdering Facility: [facility] Address: [address] [place] [address] Performed By: #### 5 7021-8 ####VILLARREAL LABORATORYCLIA [id number] [address] Lymphocytes (Bld) [#/Vol] 1.38 10*3/uL Normal 1.00-4.00 [facility] Comment on above: Order Comment: Speci men Type: BLOOD SPECIMENOrdering Facility: [facility] Address: [address] [place] [address] Performed By: #### 5 7021-8 ####VILLARREAL LABORATORYCLIA [id number] [address] Lymphocytes/100 WBC (Bld) 11.9 % Normal [facility] Comment on above: Order Comment: Speci men Type: BLOOD SPECIMENOrdering Facility: [facility] Address: [address] [place] [address] Performed By: #### 5 7021-8 ####VILLARREAL LABORATORYCLIA [id number] [address] MCH (RBC) [Entitic mass] 28.2 pg Normal 26.0-34.0 [facility] Comment on above: Order Comment: Speci men Type: BLOOD SPECIMENOrdering Facility: [facility] Address: [address] [place] [address] Performed By: #### 5 7021-8 ####VILLARREAL LABORATORYCLIA [id number] [address] [place] MCHC (RBC) [Mass/Vol] 32.1 g/dL Normal 30.5-36.0 [facility] Comment on above: Order Comment: Speci men Type: BLOOD SPECIMENOrdering Facility: [facility] Address: [address] [place] [address] Performed By: #### 5 7021-8 ####VILLARREAL LABORATORYCLIA [id number] [address] MCV (RBC) [Entitic vol] 87.9 fL Normal 80.0-100.0 [facility] Comment on above: Order Comment: Speci men Type: BLOOD SPECIMENOrdering Facility: [facility] Address: [address] [place] [address] Performed By: #### 5 7021-8 ####VILLARREAL LABORATORYCLIA [id number] [address] [place] Monocytes (Bld) [#/Vol] 0.77 10*3/uL Normal <0.87 [facility] Comment on above: Order Comment: Speci men Type: BLOOD SPECIMENOrdering Facility: [facility] Address: [address] [place] [address] Performed By: #### 5 7021-8 ####VILLARREAL LABORATORYCLIA [id number] [address] Monocytes/100 WBC (Bld) 6.6 % Normal [facility] Comment on above: Order Comment: Speci men Type: BLOOD SPECIMENOrdering Facility: [facility] Address: [address] [place] [address] Performed By: #### 5 7021-8 ####VILLARREAL LABORATORYCLIA [id number] [place] [address] [place] Neutrophils (Bld) [#/Vol] 9.10 10*3/uL High 1.45-7.50 [facility] Comment on above: Order Comment: Speci men Type: BLOOD SPECIMENOrdering Facility: [facility] Address: [address] [place] [address] Performed By: #### 5 7021-8 ####VILLARREAL LABORATORYCLIA [id number] [address] Neutrophils/100 WBC (Bld) 78.5 % Normal [facility] Comment on above: Order Comment: Speci men Type: BLOOD SPECIMENOrdering Facility: [facility] Address: [address] [place] [address] Performed By: #### 5 7021-8 ####VILLARREAL LABORATORYCLIA [id number] [place] [address] [place] Nucleated RBC (Bld) [#/Vol] 10*3/uL Normal <0.01 [facility] Comment on above: Order Comment: Speci men Type: BLOOD SPECIMENOrdering Facility: [facility] Address: [address] [place] [address] Performed By: #### 5 7021-8 ####VILLARREAL LABORATORYCLIA [id number] [address] [place] Nucleated RBC/100 WBC (Bld) [Ratio] 0.0 /100 WBC Normal [facility] Comment on above: Order Comment: Speci men Type: BLOOD SPECIMENOrdering Facility: [facility] Address: [address] [place] [address] Performed By: #### 5 7021-8 ####VILLARREAL LABORATORYCLIA [id number] [address] [place] Platelet mean volume (Bld) [Entitic vol] 8.4 fL Low 9.0-12.7 [facility] Comment on above: Order Comment: Speci men Type: BLOOD SPECIMENOrdering Facility: [facility] Address: [address] [place] [address] Performed By: #### 5 7021-8 ####VILLARREAL LABORATORYCLIA [id number] [place] [address] [place] Platelets (Bld) [#/Vol] 577 10*3/uL High 150-400 [facility] Comment on above: Order Comment: Speci men Type: BLOOD SPECIMENOrdering Facility: [facility] Address: [address] [place] [address] Performed By: #### 5 7021-8 ####VILLARREAL LABORATORYCLIA [id number] [place] [id number] [place] RBC (Bld) [#/Vol] 2.73 10*6/uL Low 3.90-5.20 [facility] Comment on above: Order Comment: Speci men Type: BLOOD SPECIMENOrdering Facility: [facility] Address: [address] [place] [address] Performed By: #### 5 7021-8 ####VILLARREAL LABORATORYCLIA [id number] [address] [facility] WBC (Bld) [#/Vol] 11.60 10*3/uL High 3.70-11.00 [facility] Comment on above: Order Comment: Speci men Type: BLOOD SPECIMENOrdering Facility: [facility] Address: [address] [place] [address] Performed By: #### 5 7021-8 ####VILLARREAL LABORATORYCLIA [id number] [address] CONSULT PROGon 12-08-2024 CONSULT PROG Normal [facility] CONSULT PROG Normal [facility] CONSULT [facility] Normal [facility] Comprehensive metabolic 2000 panelon 12-08-2024 Albumin [Mass/Vol] 2.6 g/dL Low 3.9-4.9 [facility] Comment on above: Order Comment: Speci men Type: BLOOD SPECIMENOrdering Facility: [facility] Address: [address] [place] [address] Performed By: #### 2 4323-8, ####VILLARREAL LABORATORYCLIA [id number] [place] [id number] [place] ALP [Catalytic activity/Vol] 106 U/L Normal 34-123 [facility] Comment on above: Order Comment: Speci men Type: BLOOD SPECIMENOrdering Facility: [facility] Address: [address] [place] [address] Performed By: #### 2 4323-8, ####VILLARREAL LABORATORYCLIA [id number] [place] [id number] [place] [facility] [place] ALT [Catalytic activity/Vol] U/L Low 7-38 [facility] Comment on above: Order Comment: Speci men Type: BLOOD SPECIMENOrdering Facility: [facility] Address: [address] [place] [address] Performed By: #### 2 4322-8, ####VILLARREAL LABORATORYCLIA [id number] [place] [address] [place] Anion gap [Moles/Vol] 8 mmol/L Normal 8-15 [facility] Comment on above: Order Comment: Speci men Type: BLOOD SPECIMENOrdering Facility: [facility] Address: [address] [place] [address] Performed By: #### 2 432-8, ####VILLARREAL LABORATORYCLIA [id number] [place] [address] [place] AST [Catalytic activity/Vol] 20 U/L Normal 13-35 [facility] Comment on above: Order Comment: Speci men Type: BLOOD SPECIMENOrdering Facility: [facility] Address: [address] [place] [address] Performed By: #### 2 8, ####VILLARREAL LABORATORYCLIA [id number] [place] [id number] [place] Bilirubin [Mass/Vol] mg/dL Low 0.2-1.3 [facility] Comment on above: Order Comment: Speci men Type: BLOOD SPECIMENOrdering Facility: [facility] Address: [address] [place] [address] Performed By: #### 2 8, ####VILLARREAL LABORATORYCLIA [id number] [place] [id number] [place] Calcium [Mass/Vol] 9.0 mg/dL Normal 8.5-10.2 [facility] Comment on above: Order Comment: Speci men Type: BLOOD SPECIMENOrdering Facility: [facility] Address: [facility] [place] [address] Performed By: #### 2 432-8, ####VILLARREAL LABORATORYCLIA [id number] [place] [id number] [place] Chloride [Moles/Vol] 99 mmol/L Normal 98-107 [facility] Comment on above: Order Comment: Speci men Type: BLOOD SPECIMENOrdering Facility: [facility] Address: [facility] [place] [address] Performed By: #### 2 4323-8, ####VILLARREAL LABORATORYCLIA [id number] [place] [address] [place] CO2 [Moles/Vol] 27 mmol/L Normal 22-30 [facility] Comment on above: Order Comment: Speci men Type: BLOOD SPECIMENOrdering Facility: [facility] Address: [address] [place] [address] Performed By: #### 2 4323-06, ####VILLARREAL LABORATORYCLIA [id number] [place] [address] [place] Creatinine [Mass/Vol] 0.86 mg/dL Normal 0.58-0.96 [facility] Comment on above: Order Comment: Katei men Type: BLOOD SPECIMENOrdering Facility: [facility] Address: [address] [place] [address] Performed By: #### 2 4328, ####VILLARREAL LABORATORYCLIA [id number] [address] Creatinine and Glomerular filtration rate.predicted panel (S/P/Bld) 65 mL/min/1.73m??? Normal >=60 [facility] Comment on above: Order Comment: Fan men Type: BLOOD SPECIMENOrdering Facility: [facility] Address: [address] [place] [address] Result Comment: Hilda mated Glomerular Filtration Rate [...] Performed By: #### 2 4323-8, ####VILLARREAL LABORATORYCLIA [id number] [place] [address] [place] Glucose [Mass/Vol] 170 mg/dL High 74-99 [facility] Comment on above: Order Comment: Speci men Type: BLOOD SPECIMENOrdering Facility: [facility] Address: [address] [place] [address] Result Comment: The [place] Diabetes Association (ADA) provides guidance for cutoff [...] Standards of Medical Care in Diabetes 2016, [place] Diabetes Association. Diabetes Care. 2016.39(Suppl 1). Performed By: #### 2 4323-8, ####VILLARREAL LABORATORYCLIA [id number] [place] [address] [place] Potassium [Moles/Vol] 4.5 mmol/L Normal 3.7-5.1 [facility] Comment on above: Order Comment: Fan halina Type: BLOOD SPECIMENOrdering Facility: [facility] Address: [address] [place] [address] Performed By: #### 2 4323-8, ####VILLARREAL LABORATORYCLIA [id number] [place] [id number] [place] Protein [Mass/Vol] 5.3 g/dL Low 6.3-8.0 [facility] Comment on above: Order Comment: Speci men Type: BLOOD SPECIMENOrdering Facility: [facility] Address: [address] [place] [address] Performed By: #### 2 43238, ####VILLARREAL LABORATORYCLIA [id number] [place] [address] [place] Sodium [Moles/Vol] 134 mmol/L Low 136-144 [facility] Comment on above: Order Comment: Speci men Type: BLOOD SPECIMENOrdering Facility: [facility] Address: [address] [place] [address] Performed By: #### 2 4323-8, 96897-1 ####VILLARREAL LABORATORYCLIA [id number] [place] [address] [place] Urea nitrogen [Mass/Vol] 45 mg/dL High 7- [facility] Comment on above: Order Comment: Speci men Type: BLOOD SPECIMENOrdering Facility: [facility] Address: [address] [place] [address] Performed By: #### 2 4323-8, 21418-1 ####VILLARREAL LABORATORYCLIA [id number] [address] [place] Magnesium SerPl-mCncon 12-08 Magnesium [Mass/Vol] 1.7 mg/dL Normal 1.7-2.3 [facility] Comment on above: Order Comment: Speci men Type: BLOOD SPECIMENOrdering Facility: [facility] Address: [address] [place] [address] Performed By: #### 2 4323-8, 44742-4 ####VILLARREAL LABORATORYCLIA [id number] [address] [place] OCCULT BLD EXAM-DIAGon 12-08 OCCULT BLD EXAM-DIAG Negative [facility] Comment on above: Performed By: #### O BDX ####VILLARREAL LABORATORYCLIA [id number] [place] [id number] [place] ALLIED HEALTHon 12-07-2024 ALLIED HEALTH Normal [facility] ALLIED HEALTH [facility] CASE MANAGEMon 12-07-2024 [facility] CBC W Auto Differential pane l (Bld)on 12-07-2024 Basophils (Bld) [#/Vol] 10*3/uL Normal <0.11 [facility] Comment on above: Order Comment: Speci men Type: BLOOD SPECIMENOrdering Facility: [facility] Address: [address] [place] [address] Performed By: #### 5 7021-8 ####VILLARREAL LABORATORYCLIA [id number] [place] [address] [place] Basophils/100 WBC (Bld) 0.2 % Normal [facility] Comment on above: Order Comment: Speci men Type: BLOOD SPECIMENOrdering Facility: [facility] Address: [address] [place] [address] Performed By: #### 5 7021-8 ####VILLARREAL LABORATORYCLIA [id number] [place] [address] [place] Differential cell count method Nom (Bld) Auto Normal [facility] Comment on above: Order Comment: Speci men Type: BLOOD SPECIMENOrdering Facility: [facility] Address: [address] [place] [address] Performed By: #### 5 7021-8 ####VILLARREAL LABORATORYCLIA [id number] [place] [address] [place] Eosinophils (Bld) [#/Vol] 0.09 10*3/uL Normal <0.46 [facility] Comment on above: Order Comment: Speci men Type: BLOOD SPECIMENOrdering Facility: [facility] Address: [address] [place] [address] Performed By: #### 5 7021-8 ####VILLARREAL LABORATORYCLIA [id number] [address] [place] Eosinophils/100 WBC (Bld) 0.8 % Normal [facility] Comment on above: Order Comment: Speci men Type: BLOOD SPECIMENOrdering Facility: [facility] Address: [address] [place] [address] Performed By: #### 5 7021-8 ####VILLARREAL LABORATORYCLIA [id number] [place] [address] [place] Erythrocyte distribution width (RBC) [Ratio] 16.0 % High 11.5-15.0 [facility] Comment on above: Order Comment: Speci men Type: BLOOD SPECIMENOrdering Facility: [facility] Address: [address] [place] [address] Performed By: #### 5 7021-8 ####VILLARERAL LABORATORYCLIA [id number] [address] [place] Hematocrit (Bld) [Volume fraction] 25.2 % Low 36.0-46.0 [facility] Comment on above: Order Comment: Speci men Type: BLOOD SPECIMENOrdering Facility: [facility] Address: [address] [place] [address] Performed By: #### 5 7021-8 ####VILLARREAL LABORATORYCLIA [id number] [place] [address] [place] Hemoglobin (Bld) [Mass/Vol] 8.2 g/dL Low 11.5-15.5 [facility] Comment on above: Order Comment: Speci men Type: BLOOD SPECIMENOrdering Facility: [facility] Address: [address] [place] [address] Performed By: #### 5 7021-8 ####VILLARREAL LABORATORYCLIA [id number] [place] [address] [place] Immature granulocytes (Bld) [#/Vol] 0.18 10*3/uL High <0.10 [facility] Comment on above: Order Comment: Speci men Type: BLOOD SPECIMENOrdering Facility: [facility] Address: [address] [place] [address] Performed By: #### 5 7021-8 ####VILLARREAL LABORATORYCLIA [id number] [place] [address] [place] Immature granulocytes/100 WBC (Bld) 1.6 % Normal [facility] Comment on above: Order Comment: Speci men Type: BLOOD SPECIMENOrdering Facility: [facility] Address: [address] [place] [address] Performed By: #### 5 7021-8 ####VILLARREAL LABORATORYCLIA [id number] [place] [address] [place] Lymphocytes (Bld) [#/Vol] 0.83 10*3/uL Low 1.00-4.00 [facility] Comment on above: Order Comment: Speci men Type: BLOOD SPECIMENOrdering Facility: [facility] Address: [address] [place] [address] Performed By: #### 5 7021-8 ####VILLARREAL LABORATORYCLIA [id number] [address] [place] Lymphocytes/100 WBC (Bld) 7.6 % Normal [facility] Comment on above: Order Comment: Speci men Type: BLOOD SPECIMENOrdering Facility: [facility] Address: [address] [place] [address] Performed By: #### 5 7021-8 ####VILLARREAL LABORATORYCLIA [id number] [place] [address] [place] MCH (RBC) [Entitic mass] 28.5 pg Normal 26.0-34.0 [facility] Comment on above: Order Comment: Speci men Type: BLOOD SPECIMENOrdering Facility: [facility] Address: [address] [place] [address] Performed By: #### 5 7021-8 ####VILLARREAL LABORATORYCLIA [id number] [address] [place] MCHC (RBC) [Mass/Vol] 32.5 g/dL Normal 30.5-36.0 [facility] Comment on above: Order Comment: Speci men Type: BLOOD SPECIMENOrdering Facility: [facility] Address: [address] [place] [address] Performed By: #### 5 7021-8 ####VILLARREAL LABORATORYCLIA [id number] [address] MCV (RBC) [Entitic vol] 87.5 fL Normal 80.0-100.0 [facility] Comment on above: Order Comment: Speci men Type: BLOOD SPECIMENOrdering Facility: [facility] Address: [address] [place] [address] Performed By: #### 5 7021-8 ####VILLARREAL LABORATORYCLIA [id number] [address] [place] Monocytes (Bld) [#/Vol] 0.81 10*3/uL Normal <0.87 [facility] Comment on above: Order Comment: Speci men Type: BLOOD SPECIMENOrdering Facility: [facility] Address: [address] [place] [address] Performed By: #### 5 7021-8 ####VILLARREAL LABORATORYCLIA [id number] [place] [address] [place] Monocytes/100 WBC (Bld) 7.4 % Normal [facility] Comment on above: Order Comment: Speci men Type: BLOOD SPECIMENOrdering Facility: [facility] Address: [address] [place] [address] Performed By: #### 5 7021-8 ####VILLARREAL LABORATORYCLIA [id number] [place] [address] [place] Neutrophils (Bld) [#/Vol] 8.99 10*3/uL High 1.45-7.50 [facility] Comment on above: Order Comment: Speci men Type: BLOOD SPECIMENOrdering Facility: [facility] Address: [address] [place] [address] Performed By: #### 5 7021-8 ####VILLARREAL LABORATORYCLIA [id number] [place] [address] [place] Neutrophils/100 WBC (Bld) 82.4 % Normal [facility] Comment on above: Order Comment: Speci men Type: BLOOD SPECIMENOrdering Facility: [facility] Address: [address] [place] [address] Performed By: #### 5 7021-8 ####VILLARREAL LABORATORYCLIA [id number] [place] [address] [place] Nucleated RBC (Bld) [#/Vol] 10*3/uL Normal <0.01 [facility] Comment on above: Order Comment: Speci men Type: BLOOD SPECIMENOrdering Facility: [facility] Address: [address] [place] [address] Performed By: #### 5 7021-8 ####VILLARREAL LABORATORYCLIA [id number] [place] [address] [place] Nucleated RBC/100 WBC (Bld) [Ratio] 0.0 /100 WBC Normal [facility] Comment on above: Order Comment: Speci men Type: BLOOD SPECIMENOrdering Facility: [facility] Address: [address] [place] [address] Performed By: #### 5 7021-8 ####VILLARREAL LABORATORYCLIA [id number] [place] [id number] [place] Platelet mean volume (Bld) [Entitic vol] 8.3 fL Low 9.0-12.7 [facility] Comment on above: Order Comment: Speci men Type: BLOOD SPECIMENOrdering Facility: [facility] Address: [address] [place] [address] Performed By: #### 5 7021-8 ####VILLARREAL LABORATORYCLIA [id number] [place] [address] [place] Platelets (Bld) [#/Vol] 564 10*3/uL High 150-400 [facility] Comment on above: Order Comment: Speci men Type: BLOOD SPECIMENOrdering Facility: [facility] Address: [address] [place] [address] Performed By: #### 5 7021-8 ####VILLARREAL LABORATORYCLIA [id number] [place] [address] [place] RBC (Bld) [#/Vol] 2.88 10*6/uL Low 3.90-5.20 [facility] Comment on above: Order Comment: Speci men Type: BLOOD SPECIMENOrdering Facility: [facility] Address: [address] [place] [address] Performed By: #### 5 7021-8 ####VILLARREAL LABORATORYCLIA [id number] [place] [address] [place] WBC (Bld) [#/Vol] 10.92 10*3/uL Normal 3.70-11.00 [facility] Comment on above: Order Comment: Speci men Type: BLOOD SPECIMENOrdering Facility: [facility] Address: [address] [place] [address] Performed By: #### 5 7021-8 ####VILLARREAL LABORATORYCLIA [id number] [place] [id number] [facility] [place] CONSULTon 12-07-2024 CONSULT Normal [facility] CONSULT PROGon 12-07-2024 CONSULT PROG Normal [facility] [facility] CONS[facility] PROG Normal [facility] [place] CONSULT PROG Normal [facility] [place] CONSULT PROG Normal [facility] [place] CRP SerPl-mCncon 12-07-2024 CRP [Mass/Vol] 3.6 mg/dL High <0.9 [facility] [place] Comment on above: Order Comment: Speci men Type: BLOOD SPECIMENOrdering Facility: [facility] Address: [address] [place] [address] Performed By: #### 1 988-5, 68154-2, 36025-9, 3040-3 ####[facility]ORYCLIA [id number] [place] [address] [facility] Comprehensive metabolic 2000 panelon 12-07-2024 Albumin [Mass/Vol] 2.6 g/dL Low 3.9-4.9 [facility] [place] Comment on above: Order Comment: Speci men Type: BLOOD SPECIMENOrdering Facility: [facility] Address: [address] [place] [address] Performed By: #### 1 988-5, 17854-3, 72767-8, 3040-3 ####[facility]ATORYCLIA [id number] [place] [address] [place] ALP [Catalytic activity/Vol] 111 U/L Normal 34-123 [facility] [place] Comment on above: Order Comment: Speci men Type: BLOOD SPECIMENOrdering Facility: [facility] Address: [address] [place] [address] Performed By: #### 1 988-5, 29237-7, 10954-5, 3040-3 ####[facility]ORYCLIA [id number] [place] [id number] [facility] [place] ALT [Catalytic activity/Vol] U/L Low 7-38 [facility] [place] Comment on above: Order Comment: Speci men Type: BLOOD SPECIMENOrdering Facility: [facility] Address: [address] [place] [address] Performed By: #### 1 988-5, 22059-1, 96389-8, 3040-3 ####[facility]ORYCLIA [id number] [place] [address] [place] [facility] Anion gap [Moles/Vol] 9 mmol/L Normal 8-15 [facility] Comment on above: Order Comment: Speci men Type: BLOOD SPECIMENOrdering Facility: [facility] Address: [address] [place] [id number] Performed By: #### 1 988-5, 30366-8, 23146-2, 0-3 ####[facility]ATORYCLIA [id number] [place] [address] [place] AST [Catalytic activity/Vol] 29 U/L Normal 13-35 [facility] [place] Comment on above: Order Comment: Speci men Type: BLOOD SPECIMENOrdering Facility: [facility] Address: [address] [place] [address] Performed By: #### 1 988-5, 61744-3, 29165-4, 3040-3 ####[facility]ORATORYCLIA [id number] [place] [address] [place] Bilirubin [Mass/Vol] mg/dL Low 0.2-1.3 [facility] Comment on above: Order Comment: Speci men Type: BLOOD SPECIMENOrdering Facility: [facility] Address: [address] [place] [address] Performed By: #### 1 988-5, 21816-0, 31532-7, 3040-3 ####[facility]ORATORYCLIA [id number] [place] [address] [place] Calcium [Mass/Vol] 9.3 mg/dL Normal 8.5-10.2 [facility] [place] Comment on above: Order Comment: Speci men Type: BLOOD SPECIMENOrdering Facility: [facility] Address: [address] [place] [address] Performed By: #### 1 988-5, 47668-5, 31535-8, 3040-3 ####[facility]ORATORYCLIA [id number] [place] [id number] [place] Chloride [Moles/Vol] 98 mmol/L Normal 98-107 [facility] Comment on above: Order Comment: Speci men Type: BLOOD SPECIMENOrdering Facility: [facility] Address: [address] [place] [address] Performed By: #### 1 988-5, 46251-5, 73839-0, 0-3 ####[facility]ATORYCLIA [id number] [place] [address] [place] CO2 [Moles/Vol] 28 mmol/L Normal 22-30 [facility] [place] Comment on above: Order Comment: Speci men Type: BLOOD SPECIMENOrdering Facility: [facility] Address: [address] [place] [address] Performed By: #### 1 988-5, 65091-4, 19630-0, 0-3 ####[facility]ATORYCLIA [id number] [place] [address] [place] Creatinine [Mass/Vol] 0.76 mg/dL Normal 0.58-0.96 [facility] Comment on above: Order Comment: Speci men Type: BLOOD SPECIMENOrdering Facility: [facility] Address: [address] [place] [address] Performed By: #### 1 988-5, 52913-8, , 0-3 ####[facility]ATORYCLIA [id number] [address] [facility] Creatinine and Glomerular filtration rate.predicted panel (S/P/Bld) 75 mL/min/1.73m??? Normal >=60 [facility] [place] Comment on above: Order Comment: Speci men Type: BLOOD SPECIMENOrdering Facility: [facility] Address: [address] [place] [address] Result Comment: Hilda mated Glomerular Filtration Rate [...] actual GFR. Performed By: #### 1 988-5, 72551-8, 22747-6, 0-3 ####[facility]ATORYCLIA [id number] [place] [address] [place] Glucose [Mass/Vol] 260 mg/dL High 74-99 [facility] [place] Comment on above: Order Comment: Speci men Type: BLOOD SPECIMENOrdering Facility: [facility] Address: [address] [place], [place] [id number] Result Comment: The [place] Diabetes Association (ADA) provides guidance for cutoff [...] Standards of Medical Care in Diabetes 2016, [place] Diabetes Association. Diabetes Care. 2016.39(Suppl 1). Performed By: #### 1 988-5, 23212-7, 17703-2, 3040-3 ####[facility]ORATORYCLIA [id number] [place] [address] [place] Potassium [Moles/Vol] 4.5 mmol/L Normal 3.7-5.1 [facility] Comment on above: Order Comment: Fan meade Type: BLOOD SPECIMENOrdering Facility: [facility] Address: [address] [place], [place] [id number] Performed By: #### 1 988-5, 46828-0, 45347-0, 3040-3 ####[facility]ORATORYCLIA [id number] [place] [address] [place] Protein [Mass/Vol] 5.5 g/dL Low 6.3-8.0 [facility] [place] Comment on above: Order Comment: Fan meade Type: BLOOD SPECIMENOrdering Facility: [facility] Address: [address] [place], [place] [id number] Performed By: #### 1 988-5, 68426-3, 27311-3, 3040-3 ####[facility]ORATORYCLIA [id number] [place] [address] [place] Sodium [Moles/Vol] 135 mmol/L Low 136-144 [facility] [place] Comment on above: Order Comment: Speci men Type: BLOOD SPECIMENOrdering Facility: [facility] Address: [address] [place] [address] Performed By: #### 1 988-5, 24217-8, 52505-5, 0-3 ####[facility]ATORYCLIA [id number] [place] [address] [place] Urea nitrogen [Mass/Vol] 43 mg/dL High 7-21 [facility] [place] Comment on above: Order Comment: Speci men Type: BLOOD SPECIMENOrdering Facility: [facility] Address: [address] [place] [address] Performed By: #### 1 988-5, 09190-3, 87270-0, 0-3 ####[facility]ATORYCLIA [id number] [place] [address] [place] ESR Westergren method (Bld) [Velocity]on 12-07-2024 ESR (Bld) [Velocity] 103 mm/h High 0-20 [facility] Comment on above: Order Comment: Speci men Type: BLOOD SPECIMENOrdering Facility: [facility] Address: [address] [place] [address] Performed By: #### 4 537-7 ####[facility] LABCLIA [id number] [address] [place] Folate SerPl-mCncon 12-07-19 25 Folate [Mass/Vol] 7.7 ng/mL Normal >4.7 [facility] [place] Comment on above: Order Comment: Speci men Type: BLOOD SPECIMENOrdering Facility: [facility] Address: [address] [place] [address] Performed By: #### 2 284-8, 2132-9 ####[facility]ATORYCLIA [id number] [place] [address] [place] Lipase SerPl-cCncon 12-07-19 25 Lipase [Catalytic activity/Vol] 50 U/L Normal 16-61 [facility] [place] Comment on above: Order Comment: Speci men Type: BLOOD SPECIMENOrdering Facility: [facility] Address: [address] [place] [address] Performed By: #### 1 988-5, 70693-3, 44773-6, 0-3 ####[facility]ATORYCLIA [id number] [address] Magnesium [facility] Magnesium [Mass/Vol] 1.7 mg/dL Normal 1.7-2.3 [facility] Comment on above: Order Comment: Speci men Type: BLOOD SPECIMENOrdering Facility: [facility] Address: [address] [place] [address] Performed By: #### 1 988-5, 48836-4, 24699-7, 0-3 ####[facility]ATORYCLIA [id number] [place] [address] [place] US DVT LOWER BILon 5 US DVT LOWER RADHA Normal [facility] [place] Vit B12 SerPl-ncon 025 Cobalamin (Vitamin B12) [Mass/Vol] 400 pg/mL Normal 232-1245 [facility] [place] Comment on above: Order Comment: Speci men Type: BLOOD SPECIMENOrdering Facility: [facility] Address: [address] [place], [place] [address] [address] Performed By: #### 2 284-8, 2132-9 ####[facility]ATORYCLIA [id number] [address] [place] XR ABD 2V SUPINE W UPR/DECUB /CTLon 12-07-2024 XR ABD 2V SUPINE W UPR/DECUB/CTL Normal [facility] [place] CASE MANAGEMon 12-06-2024 CASE MANAGEM Normal [facility] [place] CBC W Auto Differential pane l (Bld)on 12-06-2024 Basophils (Bld) [#/Vol] 0.03 10*3/uL Normal <0.11 [facility] [place] Comment on above: Order Comment: Speci men Type: BLOOD SPECIMENOrdering Facility: [facility] Address: [address] [address] [address] [place] [id number] Performed By: #### 5 7021-8 ####[facility]ORATORYCLIA [id number] [place] [address] [place] Basophils/100 WBC (Bld) 0.2 % Normal [facility] Comment on above: Order Comment: Speci men Type: BLOOD SPECIMENOrdering Facility: [facility] Address: [address] [place] [address] Performed By: #### 5 7021-8 ####[facility]ORATORYCLIA [id number] [place] [address] [place] Differential cell count method Nom (Bld) Auto Normal [facility] [place] Comment on above: Order Comment: Speci men Type: BLOOD SPECIMENOrdering Facility: [facility] Address: [address] [place] [address] Performed By: #### 5 7021-8 ####[facility]ORATORYCLIA [id number] [place] [address] [place] Eosinophils (Bld) [#/Vol] 0.09 10*3/uL Normal <0.46 [facility] [place] Comment on above: Order Comment: Speci men Type: BLOOD SPECIMENOrdering Facility: [facility] Address: [address] [place] [address] Performed By: #### 5 7021-8 ####[facility]ORATORYCLIA [id number] [address] Eosinophils/100 WBC (Bld) 0.6 % Normal [facility] [place] Comment on above: Order Comment: Speci men Type: BLOOD SPECIMENOrdering Facility: [facility] Address: [address] [place] [address] Performed By: #### 5 7021-8 ####[facility]ORATORYCLIA [id number] [place] [address] [place] Erythrocyte distribution width (RBC) [Ratio] 15.9 % High 11.5-15.0 [facility] [place] Comment on above: Order Comment: Speci men Type: BLOOD SPECIMENOrdering Facility: [facility] Address: [address] [place] [address] Performed By: #### 5 7021-8 ####[facility]ORATORYCLIA [id number] [place] [address] [place] Hematocrit (Bld) [Volume fraction] 25.5 % Low 36.0-46.0 [facility] [place] Comment on above: Order Comment: Speci men Type: BLOOD SPECIMENOrdering Facility: [facility] Address: [address] [place] [address] Performed By: #### 5 7021-8 ####[facility]ORATORYCLIA [id number] [address] [place] Hemoglobin (Bld) [Mass/Vol] 8.3 g/dL Low 11.5-15.5 [facility] [place] Comment on above: Order Comment: Speci men Type: BLOOD SPECIMENOrdering Facility: [facility] Address: [address] [place] [address] Performed By: #### 5 7021-8 ####[facility]ORATORYCLIA [id number] [address] [place] Immature granulocytes (Bld) [#/Vol] 0.15 10*3/uL High <0.10 [facility] [place] Comment on above: Order Comment: Speci men Type: BLOOD SPECIMENOrdering Facility: [facility] Address: [address] [place] [address] Performed By: #### 5 7021-8 ####[facility]ORATORYCLIA [id number] [address] [place] Immature granulocytes/100 WBC (Bld) 1.0 % Normal [facility] [place] Comment on above: Order Comment: Speci men Type: BLOOD SPECIMENOrdering Facility: [facility] Address: [address] [place] [address] Performed By: #### 5 7021-8 ####[facility]ORATORYCLIA [id number] [place] [address] [place] Lymphocytes (Bld) [#/Vol] 0.98 10*3/uL Low 1.00-4.00 [facility] [place] Comment on above: Order Comment: Speci men Type: BLOOD SPECIMENOrdering Facility: [facility] Address: [address] [place] [address] Performed By: #### 5 7021-8 ####[facility]ORATORYCLIA [id number] [place] [address] [place] Lymphocytes/100 WBC (Bld) 6.7 % Normal [facility] [place] Comment on above: Order Comment: Speci men Type: BLOOD SPECIMENOrdering Facility: [facility] Address: [address] [place] [address] Performed By: #### 5 7021-8 ####[facility]ORATORYCLIA [id number] [place] [address] [place] MCH (RBC) [Entitic mass] 27.9 pg Normal 26.0-34.0 [facility] [place] Comment on above: Order Comment: Speci men Type: BLOOD SPECIMENOrdering Facility: [facility] Address: [address] [place] [address] Performed By: #### 5 7021-8 ####[facility] LABORATORYCLIA [id number] [place] [address] [place] MCHC (RBC) [Mass/Vol] 32.5 g/dL Normal 30.5-36.0 [facility] Comment on above: Order Comment: Speci men Type: BLOOD SPECIMENOrdering Facility: [facility] Address: [address] [place] [address] Performed By: #### 5 7021-8 ####[facility] LABORATORYCLIA [id number] [place] [address] [place] MCV (RBC) [Entitic vol] 85.9 fL Normal 80.0-100.0 M [facility] Comment on above: Order Comment: Speci men Type: BLOOD SPECIMENOrdering Facility: [facility] Address: [address] [place] [address] Performed By: #### 5 7021-8 ####[facility] LABORATORYCLIA [id number] [place] [address] [place] Monocytes (Bld) [#/Vol] 0.94 10*3/uL High <0.87 [facility] [place] Comment on above: Order Comment: Speci men Type: BLOOD SPECIMENOrdering Facility: [facility] Address: [address] [place] [address] Performed By: #### 5 7021-8 ####[facility] LABORATORYCLIA [id number] [address] [place] Monocytes/100 WBC (Bld) 6.5 % Normal [facility] Comment on above: Order Comment: Speci men Type: BLOOD SPECIMENOrdering Facility: [facility] Address: [address] [place] [address] Performed By: #### 5 7021-8 ####[facility] LABORATORYCLIA [id number] [place] [address] [place] Neutrophils (Bld) [#/Vol] 12.37 10*3/uL High 1.45-7.50 [facility] [place] Comment on above: Order Comment: Speci men Type: BLOOD SPECIMENOrdering Facility: [facility] Address: [address] [place] [address] Performed By: #### 5 7021-8 ####[facility]ORATORYCLIA [id number] [address] [place] Neutrophils/100 WBC (Bld) 85.0 % Normal [facility] [place] Comment on above: Order Comment: Speci men Type: BLOOD SPECIMENOrdering Facility: [facility] Address: [address] [place] [address] Performed By: #### 5 7021-8 ####[facility] LABORATORYCLIA [id number] [place] [address] [place] Nucleated RBC (Bld) [#/Vol] 10*3/uL Normal <0.01 [facility] [place] Comment on above: Order Comment: Speci men Type: BLOOD SPECIMENOrdering Facility: [facility] Address: [address] [place] [address] Performed By: #### 5 7021-8 ####[facility] LABORATORYCLIA [id number] [place] [address] [place] Nucleated RBC/100 WBC (Bld) [Ratio] 0.0 /100 WBC Normal [facility] [place] Comment on above: Order Comment: Speci men Type: BLOOD SPECIMENOrdering Facility: [facility] Address: [address] [place] [address] Performed By: #### 5 7021-8 ####[facility]ORATORYCLIA [id number] [address] [place] Platelet mean volume (Bld) [Entitic vol] 8.3 fL Low 9.0-12.7 [facility] [place] Comment on above: Order Comment: Speci men Type: BLOOD SPECIMENOrdering Facility: [facility] Address: [address] [place] [address] Performed By: #### 5 7021-8 ####[facility] LABORATORYCLIA [id number] [place] [address] [place] Platelets (Bld) [#/Vol] 602 10*3/uL High 150-400 [facility] [place] Comment on above: Order Comment: Speci men Type: BLOOD SPECIMENOrdering Facility: [facility] Address: [address] [place] [address] Performed By: #### 5 7021-8 ####[facility] LABORATORYCLIA [id number] [place] [address] [place] RBC (Bld) [#/Vol] 2.97 10*6/uL Low 3.90-5.20 [facility] Comment on above: Order Comment: Speci men Type: BLOOD SPECIMENOrdering Facility: [facility] Address: [address] [place] [address] Performed By: #### 5 7021-8 ####[facility]ORATORYCLIA [id number] [place] [address] [place] WBC (Bld) [#/Vol] 14.56 10*3/uL High 3.70-11.00 [facility] Comment on above: Order Comment: Speci men Type: BLOOD SPECIMENOrdering Facility: [facility] Address: [address] [place] [address] Performed By: #### 5 7021-8 ####[facility] LABORATORYCLIA [id number] [address] [place] CONSULTon 12-06-2024 CONSULT Normal [facility] [place] CONSULT Normal [facility] [place] CONSULT PROGon 12-06-2024 CONSULT PROG Normal [facility] [place] CONSULT PROG Normal [facility] [place] Comprehensive metabolic 2000 panelon 12-06-2024 Albumin [Mass/Vol] 2.5 g/dL Low 3.9-4.9 [facility] [place] Comment on above: Order Comment: Speci men Type: BLOOD SPECIMENOrdering Facility: [facility] Address: [address] [place] [address] Performed By: #### 2 951-2, , ####[facility] LABORATORYCLIA [id number] [place] [address] [place] ALP [Catalytic activity/Vol] 112 U/L Normal 34-123 [facility] [place] Comment on above: Order Comment: Speci men Type: BLOOD SPECIMENOrdering Facility: [facility] Address: [address] [place] [address] Performed By: #### 2 951-2, , ####[facility] LABORATORYCLIA [id number] [place] [address] [place] ALT [Catalytic activity/Vol] U/L Low 7-38 [facility] [place] Comment on above: Order Comment: Speci men Type: BLOOD SPECIMENOrdering Facility: [facility] Address: [address] [place] [address] Performed By: #### 2 951-2, , ####[facility] LABORATORYCLIA [id number] [place] [address] [place] Anion gap [Moles/Vol] 10 mmol/L Normal 8-15 [facility] Comment on above: Order Comment: Speci men Type: BLOOD SPECIMENOrdering Facility: [facility] Address: [address] [place] [address] Performed By: #### 2 951-2, , ####[facility] LABORATORYCLIA [id number] [place] [id number] [place] AST [Catalytic activity/Vol] 25 U/L Normal 13-35 [facility] [place] Comment on above: Order Comment: Speci men Type: BLOOD SPECIMENOrdering Facility: [facility] Address: [address] [place] [address] Performed By: #### 2 951-2, , ####[facility] LABORATORYCLIA [id number] [place] [address] [place] Bilirubin [Mass/Vol] mg/dL Low 0.2-1.3 [facility] Comment on above: Order Comment: Speci men Type: BLOOD SPECIMENOrdering Facility: [facility] Address: [address] [place] [address] Performed By: #### 2 951-2, , ####[facility] LABORATORYCLIA [id number] [place] [address] [place] Calcium [Mass/Vol] 9.5 mg/dL Normal 8.5-10.2 [facility] [place] Comment on above: Order Comment: Speci men Type: BLOOD SPECIMENOrdering Facility: [facility] Address: [address] [place] [address] Performed By: #### 2 951-2, , ####[facility] LABORATORYCLIA [id number] [place] [address] [place] Chloride [Moles/Vol] 97 mmol/L Low 98-107 [facility] Comment on above: Order Comment: Speci men Type: BLOOD SPECIMENOrdering Facility: [facility] Address: [address] [place] [address] Performed By: #### 2 951-2, , ####[facility] LABORATORYCLIA [id number] [place] [address] [place] CO2 [Moles/Vol] 27 mmol/L Normal 22-30 [facility] [place] Comment on above: Order Comment: Speci men Type: BLOOD SPECIMENOrdering Facility: [facility] Address: [address] [place] [address] Performed By: #### 2 951-2, , ####[facility] LABORATORYCLIA [id number] [place] [id number] [place] Creatinine [Mass/Vol] 0.95 mg/dL Normal 0.58-0.96 [facility] Comment on above: Order Comment: Speci men Type: BLOOD SPECIMENOrdering Facility: [facility] Address: [address] [place] [address] Performed By: #### 2 951-2, 04745-4, 58080-6 ####[facility] LABORATORYCLIA [id number] [address] Creatinine and Glomerular filtration rate.predicted panel (S/P/Bld) 58 mL/min/1.73m??? Low >=60 [facility] [place] Comment on above: Order Comment: Fan meade Type: BLOOD SPECIMENOrdering Facility: [facility] Address: [address] [place] [address] Result Comment: Hilda mated Glomerular Filtration Rate [...] actual GFR. Performed By: #### 2 951-2, 82442-0, ####[facility] LABORATORYCLIA [id number] [place] [address] [place] Glucose [Mass/Vol] 93 mg/dL Normal 74-99 [facility] [place] Comment on above: Order Comment: Fan meade Type: BLOOD SPECIMENOrdering Facility: [facility] Address: [address] [place] [address] Result Comment: The [place] [employer] (ADA) provides guidance for cutoff [...] Standards of Medical Care in Diabetes 2016, [place] [employer]. Diabetes Care. 2016.39(Suppl 1). Performed By: #### 2 951-2, , ####[facility] LABORATORYCLIA [id number] [place] [address] [place] Potassium [Moles/Vol] 3.8 mmol/L Normal 3.7-5.1 [facility] Comment on above: Order Comment: Speci men Type: BLOOD SPECIMENOrdering Facility: [facility] Address: [address] [place] [address] Performed By: #### 2 951-2, , ####[facility] LABORATORYCLIA [id number] [place] [address] [place] Protein [Mass/Vol] 5.7 g/dL Low 6.3-8.0 [facility] Comment on above: Order Comment: Speci men Type: BLOOD SPECIMENOrdering Facility: [facility] Address: [address] [place] [address] Performed By: #### 2 951-2, , ####[facility]ORATORYCLIA [id number] [place] [address] [place] Urea nitrogen [Mass/Vol] 45 mg/dL High 7-21 [facility] Comment on above: Order Comment: Speci men Type: BLOOD SPECIMENOrdering Facility: [facility] Address: [address] [place] [address] Performed By: #### 2 951-2, , ####[facility]ORATORYCLIA [id number] [place] [address] [place] Magnesium SerPl-mCncon 12-06 Magnesium [Mass/Vol] 1.8 mg/dL Normal 1.7-2.3 [facility] Comment on above: Order Comment: Speci men Type: BLOOD SPECIMENOrdering Facility: [facility] Address: [address] [place] [address] Performed By: #### 2 951-2, , ####[facility] LABORATORYCLIA [id number] [place] [address] [place] Sodium SerPl-sCncon 12-06-19 Sodium [Moles/Vol] 135 mmol/L Low 136-144 [facility] Comment on above: Order Comment: Speci men Type: BLOOD SPECIMENOrdering Facility: [facility] Address: [address] [place] [address] [place] [address] Performed By: #### 2 951-2 ####[facility] LABORATORYCLIA [id number] [place] [address] [place] Sodium [Moles/Vol] 132 mmol/L Low 136-144 [facility] Comment on above: Order Comment: Speci men Type: BLOOD SPECIMENOrdering Facility: [facility] Address: [address] [place] [address] Performed By: #### 2 951-2 ####[facility] LABORATORYCLIA [id number] [place] [address] [place] Sodium [Moles/Vol] 136 mmol/L Normal 136-144 [facility] Comment on above: Order Comment: Speci men Type: BLOOD SPECIMENOrdering Facility: [facility] Address: [address] [place] [address] Performed By: #### 2 951-2 ####[facility] LABORATORYCLIA [id number] [place] [address] [place] Sodium [Moles/Vol] 134 mmol/L Low 136-144 [facility] Comment on above: Order Comment: Speci men Type: BLOOD SPECIMENOrdering Facility: [facility] Address: [address] [place] [address] Performed By: #### 2 951-2, 66521-7, 75109-1 ####[facility] LABORATORYCLIA [id number] [place] [address] [place] Sodium [Moles/Vol] 131 mmol/L Low 136-144 [facility] Comment on above: Order Comment: Speci men Type: BLOOD SPECIMENOrdering Facility: [facility] Address: [address] [place] [address] Performed By: #### 2 951-2 ####[facility] LABORATORYCLIA [id number] [place] [id number] [place] THERAPY NTon 12-06-2024 THERAPY NT Normal [facility] URINALYSIS, REFLEX MICROSCOP ICon 12-06-2024 Bilirubin Ql (U) Negative Normal Negative [facility] Comment on above: Order Comment: Speci men Type: URINE SPECIMENOrdering Facility: [facility] Address: [address] [place] [address] Performed By: #### L [id number] ####[facility] LABORATORYCLIA [id number] [address] [place] Clarity (Unsp spec) Clear Normal Clear [facility] Comment on above: Order Comment: Speci men Type: URINE SPECIMENOrdering Facility: [facility] Address: [address] [place] [address] Performed By: #### L [id number] ####[facility] LABORATORYCLIA [id number] [address] [place] Color (U) Yellow Normal Yellow [facility] Comment on above: Order Comment: Speci men Type: URINE SPECIMENOrdering Facility: [facility] Address: [address] [place] [address] Performed By: #### L [id number] ####[facility] LABORATORYCLIA [id number] [address] [place] Epithelial cells LM.HPF (Urine sed) [#/Area] Few Normal [facility] Comment on above: Order Comment: Speci men Type: URINE SPECIMENOrdering Facility: [facility] Address: [address] [place] [address] Performed By: #### L [id number] ####[facility] LABORATORYCLIA [id number] [place] [id number] [place] Glucose Test strip (U) [Mass/Vol] Negative Normal Negative [facility] Comment on above: Order Comment: Speci men Type: URINE SPECIMENOrdering Facility: [facility] Address: [address] [place] [address] Performed By: #### L [id number] ####[facility] LABORATORYCLIA [id number] [place] [address] [place] Hemoglobin Ql (U) Negative Normal Negative [facility] Comment on above: Order Comment: Speci men Type: URINE SPECIMENOrdering Facility: [facility] Address: [address] [place] [address] Performed By: #### L [id number] ####[facility] LABORATORYCLIA [id number] [place] [address] [place] Ketones Ql (U) Negative Normal Negative [facility] Comment on above: Order Comment: Speci men Type: URINE SPECIMENOrdering Facility: [facility] Address: [address] [place] [address] Performed By: #### L [id number] ####[facility] LABORATORYCLIA [id number] [place] [address] [place] Leukocyte esterase Test strip Ql (U) 1+ Abnormal Negative [facility] Comment on above: Order Comment: Speci men Type: URINE SPECIMENOrdering Facility: [facility] Address: [address] [place] [address] Performed By: #### L [id number] ####[facility] LABORATORYCLIA [id number] [place] [address] [place] Nitrite Ql (U) Negative Normal Negative [facility] Comment on above: Order Comment: Speci men Type: URINE SPECIMENOrdering Facility: [facility] Address: [address] [place] [address] Performed By: #### L [id number] ####[facility] LABORATORYCLIA [id number] [place] [address] [place] pH (U) 6.0 [pH] Normal 5.0-8.0 [facility] Comment on above: Order Comment: Speci men Type: URINE SPECIMENOrdering Facility: [facility] Address: [address] [place] [address] Performed By: #### L [id number] ####[facility] LABORATORYCLIA [id number] [place] [address] [place] Protein (U) [Mass/Vol] 1+ Abnormal Negative [facility] Comment on above: Order Comment: Speci men Type: URINE SPECIMENOrdering Facility: [facility] Address: [address] [place] [address] Performed By: #### L [id number] ####[facility] LABORATORYCLIA [id number] [place] [address] [place] RBC LM.HPF (Urine sed) [#/Area] 0-3 /HPF Normal 0-3 /HPF [facility] Comment on above: Order Comment: Speci men Type: URINE SPECIMENOrdering Facility: [facility] Address: [address] [place] [address] Performed By: #### L [id number] ####[facility] LABORATORYCLIA [id number] [address] [place] Specific gravity (U) [Rel density] 1.010 Normal 1.005-1.030 [facility] Comment on above: Order Comment: Speci men Type: URINE SPECIMENOrdering Facility: [facility] Address: [address] [place] [address] Performed By: #### L [id number] ####[facility] LABORATORYCLIA [id number] [address] [place] Urobilinogen Ql (U) 0.2 EU/dL Normal 0.2-1.0 EU/dL [facility] Comment on above: Order Comment: Speci men Type: URINE SPECIMENOrdering Facility: [facility] Address: [address] [place] [address] Performed By: #### L [id number] ####[facility] LABORATORYCLIA [id number] [address] WBC LM.HPF (Urine sed) [#/Area] 0-5 /HPF Normal 0-5 /HPF [facility] Comment on above: Order Comment: Speci men Type: URINE SPECIMENOrdering Facility: [facility] Address: [address] [place] [address] Performed By: #### L [id number] ####[facility] LABORATORYCLIA [id number] [address] Yeast.budding LM.HPF (Urine sed) [#/Area] Few Abnormal None Seen [facility] Comment on above: Order Comment: Speci men Type: URINE SPECIMENOrdering Facility: [facility] Address: [address] [place] [address] Performed By: #### L [id number] ####[facility] LABORATORYCLIA [id number] [place] [address] [place] ALLIED HEALTHon 12-05-2024 ALLIED HEALTH Normal [facility] CASE MANAGEMon 12-05-2024 CASE MANAGEM Normal [facility] CASE MANAGEM Normal [facility] CBC W Auto Differential pane l (Bld)on 12-05-2024 Basophils (Bld) [#/Vol] 10*3/uL Normal <0.11 [facility] Comment on above: Order Comment: Speci men Type: BLOOD SPECIMENOrdering Facility: [facility] Address: [address] [place] [address] Performed By: #### 5 7021-8 ####[facility] LABORATORYCLIA [id number] [place] [address] [place] Basophils/100 WBC (Bld) 0.1 % Normal [facility] Comment on above: Order Comment: Speci men Type: BLOOD SPECIMENOrdering Facility: [facility] Address: [address] [place] [address] Performed By: #### 5 7021-8 ####[facility] LABORATORYCLIA [id number] [place] [address] [place] Differential cell count method Nom (Bld) Auto Normal [facility] Comment on above: Order Comment: Speci men Type: BLOOD SPECIMENOrdering Facility: [facility] Address: [address] [place] [address] Performed By: #### 5 7021-8 ####[facility] LABORATORYCLIA [id number] [place] [id number] [place] Eosinophils (Bld) [#/Vol] 10*3/uL Normal <0.46 [facility] Comment on above: Order Comment: Speci men Type: BLOOD SPECIMENOrdering Facility: [facility] Address: [address] [place] [address] Performed By: #### 5 7021-8 ####[facility] LABORATORYCLIA [id number] [place] [address] [place] Eosinophils/100 WBC (Bld) 0.0 % Normal [facility] Comment on above: Order Comment: Speci men Type: BLOOD SPECIMENOrdering Facility: [facility] Address: [address] [place] [address] Performed By: #### 5 7021-8 ####[facility] LABORATORYCLIA [id number] [place] [address] [place] Erythrocyte distribution width (RBC) [Ratio] 15.8 % High 11.5-15.0 [facility] Comment on above: Order Comment: Speci men Type: BLOOD SPECIMENOrdering Facility: [facility] Address: [address] [place] [address] Performed By: #### 5 7021-8 ####[facility] LABORATORYCLIA [id number] [place] [address] [place] Hematocrit (Bld) [Volume fraction] 26.3 % Low 36.0-46.0 [facility] Comment on above: Order Comment: Speci men Type: BLOOD SPECIMENOrdering Facility: [facility] Address: [address] [place] [address] Performed By: #### 5 7021-8 ####[facility] LABORATORYCLIA [id number] [place] [address] [place] Hemoglobin (Bld) [Mass/Vol] 8.5 g/dL Low 11.5-15.5 [facility] Comment on above: Order Comment: Speci men Type: BLOOD SPECIMENOrdering Facility: [facility] Address: [address] [place] [address] Performed By: #### 5 7021-8 ####[facility] LABORATORYCLIA [id number] [place] [address] [place] Immature granulocytes (Bld) [#/Vol] 0.11 10*3/uL High <0.10 [facility] Comment on above: Order Comment: Speci men Type: BLOOD SPECIMENOrdering Facility: [facility] Address: [address] [place] [address] Performed By: #### 5 7021-8 ####[facility] LABORATORYCLIA [id number] [address] [place] Immature granulocytes/100 WBC (Bld) 0.9 % Normal [facility] Comment on above: Order Comment: Speci men Type: BLOOD SPECIMENOrdering Facility: [facility] Address: [address] [place] [address] Performed By: #### 5 7021-8 ####[facility] LABORATORYCLIA [id number] [address] Lymphocytes (Bld) [#/Vol] 0.46 10*3/uL Low 1.00-4.00 [facility] Comment on above: Order Comment: Speci men Type: BLOOD SPECIMENOrdering Facility: [facility] Address: [address] [place] [address] Performed By: #### 5 7021-8 ####[facility] LABORATORYCLIA [id number] [address] Lymphocytes/100 WBC (Bld) 3.8 % Normal [facility] Comment on above: Order Comment: Speci men Type: BLOOD SPECIMENOrdering Facility: [facility] Address: [address] [place] [address] Performed By: #### 5 7021-8 ####[facility] LABORATORYCLIA [id number] [address] MCH (RBC) [Entitic mass] 27.9 pg Normal 26.0-34.0 [facility] Comment on above: Order Comment: Speci men Type: BLOOD SPECIMENOrdering Facility: [facility] Address: [address] [place] [address] Performed By: #### 5 7021-8 ####[facility] LABORATORYCLIA [id number] [address] MCHC (RBC) [Mass/Vol] 32.3 g/dL Normal 30.5-36.0 [facility] Comment on above: Order Comment: Speci men Type: BLOOD SPECIMENOrdering Facility: [facility] Address: [address] [place] [address] Performed By: #### 5 7021-8 ####[facility] LABORATORYCLIA [id number] [address] MCV (RBC) [Entitic vol] 86.2 fL Normal 80.0-100.0 [facility] Comment on above: Order Comment: Speci men Type: BLOOD SPECIMENOrdering Facility: [facility] Address: [address] [place] [address] Performed By: #### 5 7021-8 ####[facility] LABORATORYCLIA [id number] [place] [address] [place] Monocytes (Bld) [#/Vol] 0.18 10*3/uL Normal <0.87 [facility] Comment on above: Order Comment: Speci men Type: BLOOD SPECIMENOrdering Facility: [facility] Address: [address] [place] [address] Performed By: #### 5 7021-8 ####[facility] LABORATORYCLIA [id number] [address] [place] Monocytes/100 WBC (Bld) 1.5 % Normal [facility] Comment on above: Order Comment: Speci men Type: BLOOD SPECIMENOrdering Facility: [facility] Address: [address] [place] [address] Performed By: #### 5 7021-8 ####[facility] LABORATORYCLIA [id number] [place] [address] [place] Neutrophils (Bld) [#/Vol] 11.38 10*3/uL High 1.45-7.50 [facility] Comment on above: Order Comment: Speci men Type: BLOOD SPECIMENOrdering Facility: [facility] Address: [address] [place] [address] Performed By: #### 5 7021-8 ####[facility] LABORATORYCLIA [id number] [place] [address] [place] Neutrophils/100 WBC (Bld) 93.7 % Normal [facility] Comment on above: Order Comment: Speci men Type: BLOOD SPECIMENOrdering Facility: [facility] Address: [address] [place] [address] Performed By: #### 5 7021-8 ####[facility] LABORATORYCLIA [id number] [place] [address] [place] Nucleated RBC (Bld) [#/Vol] 10*3/uL Normal <0.01 [facility] Comment on above: Order Comment: Speci men Type: BLOOD SPECIMENOrdering Facility: [facility] Address: [address] [place] [address] Performed By: #### 5 7021-8 ####[facility] LABORATORYCLIA [id number] [address] [place] Nucleated RBC/100 WBC (Bld) [Ratio] 0.0 /100 WBC Normal [facility] Comment on above: Order Comment: Speci men Type: BLOOD SPECIMENOrdering Facility: [facility] Address: [address] [place] [address] Performed By: #### 5 7021-8 ####[facility] LABORATORYCLIA [id number] [address] Platelet mean volume (Bld) [Entitic vol] 8.8 fL Low 9.0-12.7 [facility] Comment on above: Order Comment: Speci men Type: BLOOD SPECIMENOrdering Facility: [facility] Address: [address] [place] [address] Performed By: #### 5 7021-8 ####[facility] LABORATORYCLIA [id number] [address] [place] Platelets (Bld) [#/Vol] 568 10*3/uL High 150-400 [facility] Comment on above: Order Comment: Speci men Type: BLOOD SPECIMENOrdering Facility: [facility] Address: [address] [place] [address] Performed By: #### 5 7021-8 ####[facility] LABORATORYCLIA [id number] [place] [address] [place] RBC (Bld) [#/Vol] 3.05 10*6/uL Low 3.90-5.20 [facility] Comment on above: Order Comment: Speci men Type: BLOOD SPECIMENOrdering Facility: [facility] Address: [address] [place] [address] Performed By: #### 5 7021-8 ####[facility] LABORATORYCLIA [id number] [address] [place] WBC (Bld) [#/Vol] 12.14 10*3/uL High 3.70-11.00 [facility] Comment on above: Order Comment: Speci men Type: BLOOD SPECIMENOrdering Facility: [facility] Address: [address] [place] [address] Performed By: #### 5 7021-8 ####[facility]ORATORYCLIA [id number] [address] CBC panel Auto (Bld)on 12-05 Erythrocyte distribution width (RBC) [Ratio] 15.8 % High 11.5-15.0 [facility] Comment on above: Order Comment: Speci men Type: BLOOD SPECIMENOrdering Facility: [facility] Address: [address] [place] [address] Performed By: #### 5 8410-2 ####[facility]ORATORYCLIA [id number] [address] Hematocrit (Bld) [Volume fraction] 24.8 % Low 36.0-46.0 [facility] Comment on above: Order Comment: Speci men Type: BLOOD SPECIMENOrdering Facility: [facility] Address: [address] [place] [address] Performed By: #### 5 8410-2 ####[facility] LABORATORYCLIA [id number] [address] Hemoglobin (Bld) [Mass/Vol] 8.2 g/dL Low 11.5-15.5 [facility] Comment on above: Order Comment: Speci men Type: BLOOD SPECIMENOrdering Facility: [facility] Address: [address] [place] [address] Performed By: #### 5 8410-2 ####[facility] LABORATORYCLIA [id number] [address] MCH (RBC) [Entitic mass] 28.1 pg Normal 26.0-34.0 [facility] Comment on above: Order Comment: Speci men Type: BLOOD SPECIMENOrdering Facility: [facility] Address: [address] [place] [address] Performed By: #### 5 8410-2 ####[facility] LABORATORYCLIA [id number] [address] [place] MCHC (RBC) [Mass/Vol] 33.1 g/dL Normal 30.5-36.0 [facility] Comment on above: Order Comment: Speci men Type: BLOOD SPECIMENOrdering Facility: [facility] Address: [address] [place] [address] Performed By: #### 5 8410-2 ####[facility] LABORATORYCLIA [id number] [place] [address] [place] MCV (RBC) [Entitic vol] 84.9 fL Normal 80.0-100.0 [facility] Comment on above: Order Comment: Speci men Type: BLOOD SPECIMENOrdering Facility: [facility] Address: [address] [place] [address] Performed By: #### 5 8410-2 ####[facility] LABORATORYCLIA [id number] [address] [place] Nucleated RBC (Bld) [#/Vol] 10*3/uL Normal <0.01 [facility] Comment on above: Order Comment: Speci men Type: BLOOD SPECIMENOrdering Facility: [facility] Address: [address] [place] [address] Performed By: #### 5 8410-2 ####[facility] LABORATORYCLIA [id number] [address] [place] Platelet mean volume (Bld) [Entitic vol] 8.8 fL Low 9.0-12.7 [facility] Comment on above: Order Comment: Speci men Type: BLOOD SPECIMENOrdering Facility: [facility] Address: [address] [place] [address] Performed By: #### 5 8410-2 ####[facility] LABORATORYCLIA [id number] [address] [place] Platelets (Bld) [#/Vol] 574 10*3/uL High 150-400 [facility] Comment on above: Order Comment: Speci men Type: BLOOD SPECIMENOrdering Facility: [facility] Address: [address] [place] [address] Performed By: #### 5 8410-2 ####[facility] LABORATORYCLIA [id number] [place] [address] [place] RBC (Bld) [#/Vol] 2.92 10*6/uL Low 3.90-5.20 [facility] Comment on above: Order Comment: Speci men Type: BLOOD SPECIMENOrdering Facility: [facility] Address: [facility] [place] [address] Performed By: #### 5 8410-2 ####[facility] LABORATORYCLIA [id number] [place] [address] [place] WBC (Bld) [#/Vol] 13.26 10*3/uL High 3.70-11.00 [facility] Comment on above: Order Comment: Speci men Type: BLOOD SPECIMENOrdering Facility: [facility] Address: [address] [place] [address] [place] [address] Performed By: #### 5 8410-2 ####[facility] LABORATORYCLIA [id number] [address] [facility] CONSULT PROGon 12-05-2024 CONSULT PROG Normal [facility] CONSULT PROG Normal [facility] CONSULT PROG Normal [facility] Comprehensive metabolic 2000 panelon 12-05-2024 Albumin [Mass/Vol] 2.5 g/dL Low 3.9-4.9 [facility] Comment on above: Order Comment: Speci men Type: BLOOD SPECIMENOrdering Facility: [facility] Address: [address] [place] [address] [place] [address] Performed By: #### 3 040-3, 13709-2 ####[facility] LABORATORYCLIA [id number] [address] [place] ALP [Catalytic activity/Vol] 117 U/L Normal 34-123 [facility] Comment on above: Order Comment: Speci men Type: BLOOD SPECIMENOrdering Facility: [facility] Address: [address] [place] [address] [place] [address] Performed By: #### 3 040-3, 27847-5 ####[facility] LABORATORYCLIA [id number] [address] [address] STATES [facility] ALT [Catalytic activity/Vol] U/L Low 7-38 [facility] Comment on above: Order Comment: Speci men Type: BLOOD SPECIMENOrdering Facility: [facility] Address: [facility] [place] [address] Performed By: #### 3 040-3, ####[facility] LABORATORYCLIA [id number] [place] [address] [place] Anion gap [Moles/Vol] 13 mmol/L Normal 8-15 [facility] Comment on above: Order Comment: Speci men Type: BLOOD SPECIMENOrdering Facility: [facility] Address: [address] [place], [place] [address] [address] Performed By: #### 3 040-3, ####[facility] LABORATORYCLIA [id number] [address] [place] AST [Catalytic activity/Vol] 18 U/L Normal 13-35 [facility] Comment on above: Order Comment: Speci men Type: BLOOD SPECIMENOrdering Facility: [facility] Address: [address] [place] [address] [place] [address] Performed By: #### 3 040-3, ####[facility] LABORATORYCLIA [id number] [address] [place] Bilirubin [Mass/Vol] mg/dL Low 0.2-1.3 [facility] Comment on above: Order Comment: Speci men Type: BLOOD SPECIMENOrdering Facility: [facility] Address: [address] [place] [address] [place] [address] Performed By: #### 3 040-3, 79320-0 ####VILLAR[facility] LABORATORYCLIA [id number] [address] [place] Calcium [Mass/Vol] 9.5 mg/dL Normal 8.5-10.2 [facility] Comment on above: Order Comment: Speci men Type: BLOOD SPECIMENOrdering Facility: [facility] Address: [address] [place] [address] Performed By: #### 3 040-3, 98516-5 ####VILLARREAL LABORATORYCLIA [id number] [place] [address] [place] Chloride [Moles/Vol] 92 mmol/L Low 98-107 [facility] Comment on above: Order Comment: Fan meade Type: BLOOD SPECIMENOrdering Facility: [facility] Address: [address] [place] [address] Performed By: #### 3 040-3, 63866-0 ####VILLARREAL LABORATORYCLIA [id number] [place] [id number] [place] CO2 [Moles/Vol] 24 mmol/L Normal 22-30 [facility] Comment on above: Order Comment: Fan meade Type: BLOOD SPECIMENOrdering Facility: [facility] Address: [address] [place] [address] Performed By: #### 3 040-3, 81546-7 ####VILLARREAL LABORATORYCLIA [id number] [place] [address] [place] Creatinine [Mass/Vol] 1.04 mg/dL High 0.58-0.96 [facility] Comment on above: Order Comment: Fan meade Type: BLOOD SPECIMENOrdering Facility: [facility] Address: [address] [place] [address] Performed By: #### 3 040-3, 55273-3 ####VILLARREAL LABORATORYCLIA [id number] [address] Creatinine and Glomerular filtration rate.predicted panel (S/P/Bld) 52 mL/min/1.73m??? Low >=60 [facility] Comment on above: Order Comment: Fan meade Type: BLOOD SPECIMENOrdering Facility: [facility] Address: [address] [place] [address] Result Comment: Hilda mated Glomerular Filtration Rate [...] actual GFR. Performed By: #### 3 040-3, 41789-0 ####VILLARREAL LABORATORYCLIA [id number] [place] [address] [place] Glucose [Mass/Vol] 279 mg/dL High 74-99 [facility] [place] Comment on above: Order Comment: Fan meade Type: BLOOD SPECIMENOrdering Facility: [facility] Address: [address] [place] [address] Result Comment: [place] Diabetes Association (ADA) provides guidance for cutoff [...] Standards of Medical Care in Diabetes 2016, [place] Diabetes Association. Diabetes Care. 2016.39(Suppl 1). Performed By: #### 3 040- ####[facility] LABORATORYCLIA [id number] [place] [address] [place] Potassium [Moles/Vol] 4.4 mmol/L Normal 3.7-5.1 [facility] Comment on above: Order Comment: Fan meade Type: BLOOD SPECIMENOrdering Facility: [facility] Address: [address] [place] [address] Performed By: #### 3 -, ####VILLARREAL LABORATORYCLIA [id number] [place] [id number] [place] Protein [Mass/Vol] 5.8 g/dL Low 6.3-8.0 [facility] Comment on above: Order Comment: Fan meade Type: BLOOD SPECIMENOrdering Facility: [facility] Address: [address] [place] [address] Performed By: #### 3 040-, ####VILLARREAL LABORATORYCLIA [id number] [place] [address] [place] Sodium [Moles/Vol] 129 mmol/L Low 136-144 [facility] Comment on above: Order Comment: Speci men Type: BLOOD SPECIMENOrdering Facility: [facility] Address: [address] [place] [address] Performed By: #### 3 040-3, ####VILLARRE[facility] LABORATORYCLIA [id number] [place] [address] [place] Urea nitrogen [Mass/Vol] 49 mg/dL High 7-21 [facility] Comment on above: Order Comment: Speci men Type: BLOOD SPECIMENOrdering Facility: [facility] Address: [address] [place] [address] Performed By: #### 3 040-3, ####VILLAR[facility] LABORATORYCLIA [id number] [place] [address] [place] Albumin [Mass/Vol] 2.5 g/dL Low 3.9-4.9 [facility] Comment on above: Order Comment: Speci men Type: BLOOD SPECIMENOrdering Facility: [facility] Address: [address] [place] [address] Performed By: #### 2 951-2, 17276-8, ####VILLARRE[facility] LABORATORYCLIA [id number] [place] [address] [place] ALP [Catalytic activity/Vol] 122 U/L Normal 34-123 [facility] Comment on above: Order Comment: Speci men Type: BLOOD SPECIMENOrdering Facility: [facility] Address: [address] [place] [address] Performed By: #### 2 951-2, 09255-2, ####VILLARREAL LABORATORYCLIA [id number] [place] [id number] [place] ALT [Catalytic activity/Vol] U/L Low 7-38 [facility] Comment on above: Order Comment: Speci men Type: BLOOD SPECIMENOrdering Facility: [facility] Address: [address] [place] [address] Performed By: #### 2 951-2, 95308-9, ####VILL[facility] LABORATORYCLIA [id number] [place] [address] [place] Anion gap [Moles/Vol] 11 mmol/L Normal 8-15 [facility] Comment on above: Order Comment: Speci men Type: BLOOD SPECIMENOrdering Facility: [facility] Address: [address] [place] [address] Performed By: #### 2 951-2, , ####VILLARRE[facility] LABORATORYCLIA [id number] [place] [address] [place] AST [Catalytic activity/Vol] 21 U/L Normal 13-35 [facility] Comment on above: Order Comment: Speci men Type: BLOOD SPECIMENOrdering Facility: [facility] Address: [facility] [place] [address] Performed By: #### 2 951-2, , ####VILLARRE[facility] LABORATORYCLIA [id number] [address] [place] Bilirubin [Mass/Vol] mg/dL Low 0.2-1.3 [facility] Comment on above: Order Comment: Speci men Type: BLOOD SPECIMENOrdering Facility: [facility] Address: [address] [place] [address] Performed By: #### 2 951-2, , ####VILLARREAL LABORATORYCLIA [id number] [address] STATES OF [facility] Calcium [Mass/Vol] 9.8 mg/dL Normal 8.5-10.2 [facility] Comment on above: Order Comment: Speci men Type: BLOOD SPECIMENOrdering Facility: [facility] Address: [address] [place] [address] Performed By: #### 2 951-2, , ####VILL[facility] LABORATORYCLIA [id number] [place] [address] [place] Chloride [Moles/Vol] 94 mmol/L Low 98-107 [facility] Comment on above: Order Comment: Speci men Type: BLOOD SPECIMENOrdering Facility: [facility] Address: [address] [place] [address] [place] [address] Performed By: #### 2 951-2, 84918-5, ####VILLARREAL LABORATORYCLIA [id number] [place] [address] [place] CO2 [Moles/Vol] 26 mmol/L Normal 22-30 [facility] Comment on above: Order Comment: Speci men Type: BLOOD SPECIMENOrdering Facility: [facility] Address: [address] [place] [address] Performed By: #### 2 951-2, , ####VILLARRE[facility] LABORATORYCLIA [id number] [place] [address] [place] Creatinine [Mass/Vol] 0.89 mg/dL Normal 0.58-0.96 [facility] Comment on above: Order Comment: Speci men Type: BLOOD SPECIMENOrdering Facility: [facility] Address: [address] [place] [address] Performed By: #### 2 951-2, , ####V[facility] LABORATORYCLIA [id number] [place] [address] [place] Creatinine and Glomerular filtration rate.predicted panel (S/P/Bld) 62 mL/min/1.73m??? Normal >=60 [facility] Comment on above: Order Comment: Speci men Type: BLOOD SPECIMENOrdering Facility: [facility] Address: [address] [place] [address] Result Comment: Hilda mated Glomerular Filtration Rate [...] actual GFR. Performed By: #### 2 951-2, 93704-8, ####VILLARREAL LABORATORYCLIA [id number] [place] [address] [place] Glucose [Mass/Vol] 238 mg/dL High 74-99 [facility] Comment on above: Order Comment: Speci men Type: BLOOD SPECIMENOrdering Facility: [facility] Address: [address] [place] [address] Result Comment: The [place] Diabetes Association (ADA) provides guidance for cutoff [...] Standards of Medical Care in Diabetes 2016, [place] [employer]. Diabetes Care. 2016.39(Suppl 1). Performed By: #### 2 951-2, , ####V[facility]RE[facility] LABORATORYCLIA [id number] [place] [address] [place] Potassium [Moles/Vol] 5.2 mmol/L High 3.7-5.1 [facility] Comment on above: Order Comment: Fan meade Type: BLOOD SPECIMENOrdering Facility: [facility] Address: [address] [place] [address] Performed By: #### 2 951-2, , ####VILLARRE[facility] LABORATORYCLIA [id number] [place] [address] [place] Protein [Mass/Vol] 6.1 g/dL Low 6.3-8.0 [facility] Comment on above: Order Comment: aFn meade Type: BLOOD SPECIMENOrdering Facility: [facility] Address: [address] [place] [address] Performed By: #### 2 951-2, , ####VILLARRE[facility] LABORATORYCLIA [id number] [place] [address] [place] Urea nitrogen [Mass/Vol] 41 mg/dL High 7-21 [facility] Comment on above: Order Comment: Fan meade Type: BLOOD SPECIMENOrdering Facility: [facility] Address: [address] [place], [place] [address] Performed By: #### 2 951-2, 25425-4, ####VILLARREAL LABORATORYCLIA [id number] [place] [address] [place] ECG COMPLETEon 12-05-2024 ECG COMPLETE Normal [facility] Lipase SerPl-cCncon 12-05-19 25 Lipase [Catalytic activity/Vol] 31 U/L Normal 16-61 [facility] Comment on above: Order Comment: Speci men Type: BLOOD SPECIMENOrdering Facility: [facility] Address: [address] [place] [address] Performed By: #### 3 040-3, 97471-1 ####VILLARREAL LABORATORYCLIA [id number] [place] [address] [place] Magnesium SerPl-mCncon 12-05 Magnesium [Mass/Vol] 2.0 mg/dL Normal 1.7-2.3 [facility] Comment on above: Order Comment: Speci men Type: BLOOD SPECIMENOrdering Facility: [facility] Address: [address] [place] [address] Performed By: #### 2 951-2, 63666-3, ####VILLARREAL LABORATORYCLIA [id number] [place] [address] [place] SEPSIS LACTATEon 12-05-2024 Lactate [Moles/Vol] 1.5 mmol/L Normal 0.5-2.0 [facility] Comment on above: Order Comment: Speci men Type: BLOOD SPECIMENOrdering Facility: [facility] Address: [address] [place] [address] Performed By: #### S LACT ####VILLARREAL LABORATORYCLIA [id number] [place] [address] [place] Sodium SerPl-sCncon 12-05-19 25 Sodium [Moles/Vol] 127 mmol/L Low 136-144 [facility] Comment on above: Order Comment: Speci men Type: BLOOD SPECIMENOrdering Facility: [facility] Address: [address] [place] [address] Performed By: #### 2 951-2 ####VILLARREAL LABORATORYCLIA [id number] [place] [address] [place] Sodium [Moles/Vol] 129 mmol/L Low 136-144 [facility] Comment on above: Order Comment: Speci men Type: BLOOD SPECIMENOrdering Facility: [facility] Address: [address] [place] [address] Performed By: #### 2 951-2 ####VILLARREAL LABORATORYCLIA [id number] [place] [address] [place] Sodium [Moles/Vol] 131 mmol/L Low 136-144 [facility] Comment on above: Order Comment: Speci men Type: BLOOD SPECIMENOrdering Facility: [facility] Address: [address] [place] [address] Performed By: #### 2 951-2, 76430-0, 97973-3 ####VILLARRE[facility] LABORATORYCLIA [id number] [place] [address] [place] THERAPY NTon 12-05-2024 THERAPY NT [facility] XR ABDOMEN 1V SUPINEon 12-05 XR ABDOMEN 1V SUPINE [facility] CASE MANAGEMon 12-04-2024 CASE MANAGEM [facility] CBC W Auto Differential pane l (Bld)on 12-04-2024 Basophils (Bld) [#/Vol] 0.05 10*3/uL Normal <0.11 [facility] Comment on above: Order Comment: Speci men Type: BLOOD SPECIMENOrdering Facility: [facility] Address: [address] [place] [address] Performed By: #### 5 7021-8 ####VILLARREAL LABORATORYCLIA [id number] [place] [id number] [place] Basophils/100 WBC (Bld) 0.2 % Normal [facility] Comment on above: Order Comment: Speci men Type: BLOOD SPECIMENOrdering Facility: [facility] Address: [address] [place] [address] Performed By: #### 5 7021-8 ####VILL[facility]RE[facility] LABORATORYCLIA [id number] [address] [place] Differential cell count method Nom (Bld) Auto Normal [facility] Comment on above: Order Comment: Speci men Type: BLOOD SPECIMENOrdering Facility: [facility] Address: [address] [place] [address] Performed By: #### 5 7021-8 ####[facility] LABORATORYCLIA [id number] [place] [address] [place] Eosinophils (Bld) [#/Vol] 10*3/uL Normal <0.46 [facility] Comment on above: Order Comment: Speci men Type: BLOOD SPECIMENOrdering Facility: [facility] Address: [address] [place] [address] Performed By: #### 5 7021-8 ####V[facility] LABORATORYCLIA [id number] [address] Eosinophils/100 WBC (Bld) 0.1 % Normal [facility] Comment on above: Order Comment: Speci men Type: BLOOD SPECIMENOrdering Facility: [facility] Address: [address] [place] [address] Performed By: #### 5 7021-8 ####VILL[facility] LABORATORYCLIA [id number] [address] Erythrocyte distribution width (RBC) [Ratio] 15.8 % High 11.5-15.0 [facility] Comment on above: Order Comment: Speci men Type: BLOOD SPECIMENOrdering Facility: [facility] Address: [address] [place] [address] Performed By: #### 5 7021-8 ####VILLARRE[facility] LABORATORYCLIA [id number] [address] [place] Hematocrit (Bld) [Volume fraction] 25.9 % Low 36.0-46.0 [facility] Comment on above: Order Comment: Speci men Type: BLOOD SPECIMENOrdering Facility: [facility] Address: [address] [place] [address] Performed By: #### 5 7021-8 ####VILLARRE[facility] LABORATORYCLIA [id number] [address] [place] Hemoglobin (Bld) [Mass/Vol] 8.5 g/dL Low 11.5-15.5 [facility] Comment on above: Order Comment: Speci men Type: BLOOD SPECIMENOrdering Facility: [facility] Address: [address] [place] [address] Performed By: #### 5 7021-8 ####VILLARREAL LABORATORYCLIA [id number] [place] [address] [place] Immature granulocytes (Bld) [#/Vol] 0.27 10*3/uL High <0.10 [facility] Comment on above: Order Comment: Speci men Type: BLOOD SPECIMENOrdering Facility: [facility] Address: [address] [place] [address] Performed By: #### 5 7021-8 ####VILLARREAL LABORATORYCLIA [id number] [address] [place] Immature granulocytes/100 WBC (Bld) 1.3 % Normal [facility] Comment on above: Order Comment: Speci men Type: BLOOD SPECIMENOrdering Facility: [facility] Address: [address] [place] [address] Performed By: #### 5 7021-8 ####VILLARREAL LABORATORYCLIA [id number] [place] [address] [place] Lymphocytes (Bld) [#/Vol] 0.64 10*3/uL Low 1.00-4.00 [facility] Comment on above: Order Comment: Speci men Type: BLOOD SPECIMENOrdering Facility: [facility] Address: [address] [place] [address] Performed By: #### 5 7021-8 ####VILLARREAL LABORATORYCLIA [id number] [address] [place] Lymphocytes/100 WBC (Bld) 3.1 % Normal [facility] Comment on above: Order Comment: Speci men Type: BLOOD SPECIMENOrdering Facility: [facility] Address: [address] [place] [address] Performed By: #### 5 7021-8 ####VILLARREAL LABORATORYCLIA [id number] [place] [address] [place] MCH (RBC) [Entitic mass] 28.1 pg Normal 26.0-34.0 [facility] Comment on above: Order Comment: Speci men Type: BLOOD SPECIMENOrdering Facility: [facility] Address: [address] [place] [address] Performed By: #### 5 7021-8 ####VILLARREAL LABORATORYCLIA [id number] [address] [place] MCHC (RBC) [Mass/Vol] 32.8 g/dL Normal 30.5-36.0 [facility] Comment on above: Order Comment: Speci men Type: BLOOD SPECIMENOrdering Facility: [facility] Address: [address] [place] [address] Performed By: #### 5 7021-8 ####[facility] LABORATORYCLIA [id number] [address] MCV (RBC) [Entitic vol] 85.8 fL Normal 80.0-100.0 [facility] Comment on above: Order Comment: Speci men Type: BLOOD SPECIMENOrdering Facility: [facility] Address: [address] [place] [address] Performed By: #### 5 7021-8 ####[facility] LABORATORYCLIA [id number] [address] [place] Monocytes (Bld) [#/Vol] 1.09 10*3/uL High <0.87 [facility] Comment on above: Order Comment: Speci men Type: BLOOD SPECIMENOrdering Facility: [facility] Address: [address] [place] [address] Performed By: #### 5 7021-8 ####[facility] LABORATORYCLIA [id number] [address] [place] Monocytes/100 WBC (Bld) 5.3 % Normal [facility] Comment on above: Order Comment: Speci men Type: BLOOD SPECIMENOrdering Facility: [facility] Address: [address] [place] [address] Performed By: #### 5 7021-8 ####[facility] LABORATORYCLIA [id number] [address] [place] Neutrophils (Bld) [#/Vol] 18.59 10*3/uL High 1.45-7.50 [facility] Comment on above: Order Comment: Speci men Type: BLOOD SPECIMENOrdering Facility: [facility] Address: [address] [place] [address] Performed By: #### 5 7021-8 ####[facility] LABORATORYCLIA [id number] [address] [place] Neutrophils/100 WBC (Bld) 90.0 % Normal [facility] Comment on above: Order Comment: Speci men Type: BLOOD SPECIMENOrdering Facility: [facility] Address: [address] [place] [address] Performed By: #### 5 7021-8 ####[facility] LABORATORYCLIA [id number] [address] [place] Nucleated RBC (Bld) [#/Vol] 10*3/uL Normal <0.01 [facility] Comment on above: Order Comment: Speci men Type: BLOOD SPECIMENOrdering Facility: [facility] Address: [address] [place] [address] Performed By: #### 5 7021-8 ####[facility] LABORATORYCLIA [id number] [address] Nucleated RBC/100 WBC (Bld) [Ratio] 0.0 /100 WBC Normal [facility] Comment on above: Order Comment: Speci men Type: BLOOD SPECIMENOrdering Facility: [facility] Address: [address] [place] [address] Performed By: #### 5 7021-8 ####[facility] LABORATORYCLIA [id number] [place] [address] [place] Platelet mean volume (Bld) [Entitic vol] 8.7 fL Low 9.0-12.7 [facility] Comment on above: Order Comment: Speci men Type: BLOOD SPECIMENOrdering Facility: [facility] Address: [address] [place] [address] Performed By: #### 5 7021-8 ####[facility] LABORATORYCLIA [id number] [place] [address] [place] Platelets (Bld) [#/Vol] 518 10*3/uL High 150-400 [facility] Comment on above: Order Comment: Speci men Type: BLOOD SPECIMENOrdering Facility: [facility] Address: [address] [place] [address] Performed By: #### 5 7021-8 ####[facility] LABORATORYCLIA [id number] [place] [address] [place] RBC (Bld) [#/Vol] 3.02 10*6/uL Low 3.90-5.20 [facility] Comment on above: Order Comment: Speci men Type: BLOOD SPECIMENOrdering Facility: [facility] Address: [address] [place] [address] Performed By: #### 5 7021-8 ####[facility] LABORATORYCLIA [id number] [address] [place] WBC (Bld) [#/Vol] 20.66 10*3/uL High 3.70-11.00 [facility] Comment on above: Order Comment: Speci men Type: BLOOD SPECIMENOrdering Facility: [facility] Address: [address] [place] [address] Performed By: #### 5 7021-8 ####[facility] LABORATORYCLIA [id number] [address] CBC W Ordered Manual Differe ntial panel (Bld)on 12-04-2024 Basophils (Bld) [#/Vol] 0.03 10*3/uL Normal <0.11 [facility] Comment on above: Order Comment: Speci men Type: BLOOD SPECIMENOrdering Facility: [facility] Address: [address] [place] [address] Performed By: #### S TFREV ####[facility] LABCLIA [id number] [place] [address] [place]#### 11462-7 ####[facility] LABORATORYCLIA [id number] [place] [address] [place] Basophils/100 WBC (Bld) 0.2 % Normal [facility] Comment on above: Order Comment: Speci men Type: BLOOD SPECIMENOrdering Facility: [facility] Address: [address] [place] [address] Performed By: #### S TFREV ####[facility] [facility] [id number] [place] [address] [place]#### 91052-2 ####[facility]ORATORYCLIA [id number] [place] [address] [place] Differential cell count method Nom (Bld) Auto Normal [facility] Comment on above: Order Comment: Speci men Type: BLOOD SPECIMENOrdering Facility: [facility] Address: [address] [place] [address] Performed By: #### S TFREV ####[facility]CL[facility] [id number] [place] [address] [place]#### 28053-6 ####[facility]ORATORYCLIA [id number] [place] [address] [place] Eosinophils (Bld) [#/Vol] 10*3/uL Normal <0.46 [facility] Comment on above: Order Comment: Speci men Type: BLOOD SPECIMENOrdering Facility: [facility] Address: [address] [place] [address] Performed By: #### S TFREV ####[facility] [id number] [place] [address] [place]#### 92445-2 ####[facility]ORATORYCLIA [id number] [place] [address] [place] Eosinophils/100 WBC (Bld) 0.1 % Normal [facility] Comment on above: Order Comment: Speci men Type: BLOOD SPECIMENOrdering Facility: [facility] Address: [address] [place] [address] Performed By: #### S TFREV ####[facility] [id number] [place] [address] [place]#### 04990-3 ####[facility]ORATORYCLIA [id number] [address] [place] Erythrocyte distribution width (RBC) [Ratio] 15.9 % High 11.5-15.0 [facility] Comment on above: Order Comment: Speci men Type: BLOOD SPECIMENOrdering Facility: [facility] Address: [address] [place] [address] Performed By: #### S TFREV ####[facility] [id number] [place] [address] [place]#### 13466-4 ####[facility]ORATORYCLIA [id number] [address] [place] Hematocrit (Bld) [Volume fraction] 26.2 % Low 36.0-46.0 [facility] Comment on above: Order Comment: Speci men Type: BLOOD SPECIMENOrdering Facility: [facility] Address: [address] [place] [address] Performed By: #### S TFREV ####[facility] [id number] [address] [place]#### 91410-2 ####[facility]ATORYCLIA [id number] [address] [place] Hemoglobin (Bld) [Mass/Vol] 8.7 g/dL Low 11.5-15.5 [facility] Comment on above: Order Comment: Speci men Type: BLOOD SPECIMENOrdering Facility: [facility] Address: [address] [place] [address] Performed By: #### S TFREV ####[facility] [id number] [place] [address] [place]#### 96935-3 ####[facility]ORATORYCLIA [id number] [place] [address] [place] Immature granulocytes (Bld) [#/Vol] 0.20 10*3/uL High <0.10 [facility] Comment on above: Order Comment: Speci men Type: BLOOD SPECIMENOrdering Facility: [facility] Address: [address] [place] [address] Performed By: #### S TFREV ####[facility] [id number] [place] [address] [place]#### 06804-5 ####[facility]ATORYCLIA [id number] [address] Immature granulocytes/100 WBC (Bld) 1.3 % Normal [facility] Comment on above: Order Comment: Speci men Type: BLOOD SPECIMENOrdering Facility: [facility] Address: [address] [place] [address] Performed By: #### S TFREV ####[facility] [id number] [address] [place]#### 81559-8 ####[facility]ORATORYCLIA [id number] [place] [address] [place] Lymphocytes (Bld) [#/Vol] 0.56 10*3/uL Low 1.00-4.00 [facility] Comment on above: Order Comment: Speci men Type: BLOOD SPECIMENOrdering Facility: [facility] Address: [address] [place] [address] Performed By: #### S TFREV ####[facility] [id number] [place] [address] [place] [facility] [place]#### 11354-9 ####[facility]ORATORYCLIA [id number] [address] [place] Lymphocytes/100 WBC (Bld) 3.5 % Normal [facility] Comment on above: Order Comment: Speci men Type: BLOOD SPECIMENOrdering Facility: [facility] Address: [address] [place] [address] Performed By: #### S TFREV ####[facility]CL[facility] [id number] [address] [place]#### 56736-1 ####[facility]ORYCLIA [id number] [address] MCH (RBC) [Entitic mass] 28.3 pg Normal 26.0-34.0 [facility] Comment on above: Order Comment: Speci men Type: BLOOD SPECIMENOrdering Facility: [facility] Address: [address] [place] [address] Performed By: #### S TFREV ####[facility] [id number] [address] [place]#### 78611-3 ####[facility]ORATORYCLIA [id number] [address] [place] [facility] MCHC (RBC) [Mass/Vol] 33.2 g/dL Normal 30.5-36.0 [facility] Comment on above: Order Comment: Speci men Type: BLOOD SPECIMENOrdering Facility: [facility] Address: [address] [place] [address] Performed By: #### S TFREV ####[facility] [id number] [address] [place]#### 97741-5 ####[facility]ORATORYCLIA [id number] [address] [place] [facility] MCV (RBC) [Entitic vol] 85.3 fL Normal 80.0-100.0 M [facility] Comment on above: Order Comment: Speci men Type: BLOOD SPECIMENOrdering Facility: [facility] Address: [address] [place] [address] Performed By: #### S TFREV ####[facility]CL[facility] [id number] [place] [address] [place]#### 15934-4 ####[facility]ORATORYCLIA [id number] [place] [address] [place] Monocytes (Bld) [#/Vol] 0.74 10*3/uL Normal <0.87 [facility] Comment on above: Order Comment: Speci men Type: BLOOD SPECIMENOrdering Facility: [facility] Address: [address] [place] [address] Performed By: #### S TFREV ####[facility] [id number] [place] [address] [place]#### 63790-2 ####[facility]ATORYCLIA [id number] [address] Monocytes/100 WBC (Bld) 4.6 % Normal [facility] Comment on above: Order Comment: Speci men Type: BLOOD SPECIMENOrdering Facility: [facility] Address: [address] [place] [address] Performed By: #### S TFREV ####[facility] [id number] [place] [address] [place]#### 67163-1 ####[facility]ATORYCLIA [id number] [place] [address] [place] Neutrophils (Bld) [#/Vol] 14.38 10*3/uL High 1.45-7.50 [facility] Comment on above: Order Comment: Speci men Type: BLOOD SPECIMENOrdering Facility: [facility] Address: [address] [place] [address] Performed By: #### S TFREV ####[facility] [id number] [place] [address] [place]#### 90013-7 ####[facility]ORATORYCLIA [id number] [address] [place] Neutrophils/100 WBC (Bld) 90.3 % Normal [facility] Comment on above: Order Comment: Speci men Type: BLOOD SPECIMENOrdering Facility: [facility] Address: [address] [place] [address] Performed By: #### S TFREV ####[facility] [id number] [place] [address] [place]#### 05746-8 ####[facility]ATORYCLIA [id number] [place] [address] [place] Nucleated RBC (Bld) [#/Vol] 10*3/uL Normal <0.01 [facility] Comment on above: Order Comment: Speci men Type: BLOOD SPECIMENOrdering Facility: [facility] Address: [address] [place] [address] Performed By: #### S TFREV ####[facility] [id number] [place] [address] [place]#### 28265-4 ####[facility]ORYCLIA [id number] [place] [address] [place] Nucleated RBC/100 WBC (Bld) [Ratio] 0.0 /100 WBC Normal [facility] Comment on above: Order Comment: Speci men Type: BLOOD SPECIMENOrdering Facility: [facility] Address: [address] [place] [address] Performed By: #### S TFREV ####[facility] [id number] [place] [address] [place]#### 87938-5 ####[facility]ORATORYCLIA [id number] [place] [address] [place] Platelet mean volume (Bld) [Entitic vol] 8.8 fL Low 9.0-12.7 [facility] Comment on above: Order Comment: Speci men Type: BLOOD SPECIMENOrdering Facility: [facility] Address: [address] [place] [address] Performed By: #### S TFREV ####[facility] [id number] [place] [address] [place]#### 38739-8 ####[facility]ORATORYCLIA [id number] [place] [address] [place] Platelets (Bld) [#/Vol] 512 10*3/uL High 150-400 [facility] Comment on above: Order Comment: Speci men Type: BLOOD SPECIMENOrdering Facility: [facility] Address: [address] [place] [address] Performed By: #### S TFREV ####[facility]CL[facility] [id number] [place] [address] [place]#### 99439-0 ####[facility]ORYCLIA [id number] [place] [address] [place] RBC (Bld) [#/Vol] 3.07 10*6/uL Low 3.90-5.20 [facility] Comment on above: Order Comment: Speci men Type: BLOOD SPECIMENOrdering Facility: [facility] Address: [address] [place] [address] Performed By: #### S TFREV ####[facility] [id number] [place] [address] [place]#### 93219-7 ####[facility]ORYCLIA [id number] [place] [address] [place] WBC (Bld) [#/Vol] 15.92 10*3/uL High 3.70-11.00 [facility] Comment on above: Order Comment: Speci men Type: BLOOD SPECIMENOrdering Facility: [facility] Address: [address] [place] [id number] Performed By: #### S TFREV ####[facility] [id number] [place] [address] [place]#### 33259-0 ####[facility]ORYCLIA [id number] [place] [address] [place] CONSULTon 12-04-2024 CONSULT Normal [facility] CONSULT PROGon 12-04-2024 CONSULT PRO Normal [facility] CONSULT PROG Normal [facility] CONSULT [facility] Normal [facility] Comprehensive metabolic 2000 panelon 12-04-2024 Albumin [Mass/Vol] 2.5 g/dL Low 3.9-4.9 [facility] Comment on above: Order Comment: Speci men Type: BLOOD SPECIMENOrdering Facility: [facility] Address: [address] [place] [address] Performed By: #### 2 4323-8, 21372-0, 2950-2 ####[facility]ORATORYCLIA [id number] [place] [address] [place] ALP [Catalytic activity/Vol] 112 U/L Normal 34-123 [facility] Comment on above: Order Comment: Speci men Type: BLOOD SPECIMENOrdering Facility: [facility] Address: [address] [place] [address] Performed By: #### 2 4323-8, 62593-0, 2950-2 ####[facility]ORATORYCLIA [id number] [place] [address] [place] ALT [Catalytic activity/Vol] U/L Low 7-38 [facility] Comment on above: Order Comment: Speci men Type: BLOOD SPECIMENOrdering Facility: [facility] Address: [address] [place] [address] Performed By: #### 2 4323-8, 22715-6, 2950-2 ####[facility]ORATORYCLIA [id number] [place] [address] [place] Anion gap [Moles/Vol] 10 mmol/L Normal 8-15 [facility] Comment on above: Order Comment: Speci men Type: BLOOD SPECIMENOrdering Facility: [facility] Address: [address] [place] [address] Performed By: #### 2 4323-8, 99408-4, 2950-2 ####[facility] LABORATORYCLIA [id number] [place] [id number] [place] AST [Catalytic activity/Vol] 31 U/L Normal 13-35 [facility] Comment on above: Order Comment: Speci men Type: BLOOD SPECIMENOrdering Facility: [facility] Address: [address] [place] [id number] Performed By: #### 2 4323-8, 50428-7, 2950-2 ####[facility] LABORATORYCLIA [id number] [place] [address] [place] Bilirubin [Mass/Vol] mg/dL Low 0.2-1.3 [facility] Comment on above: Order Comment: Speci men Type: BLOOD SPECIMENOrdering Facility: [facility] Address: [address] [place] [address] Performed By: #### 2 4323-8, , 2950-2 ####[facility] LABORATORYCLIA [id number] [place] [address] [place] Calcium [Mass/Vol] 9.7 mg/dL Normal 8.5-10.2 [facility] Comment on above: Order Comment: Speci men Type: BLOOD SPECIMENOrdering Facility: [facility] Address: [address] [place] [address] Performed By: #### 2 4322-8, , 2950-12 ####[facility]ORATORYCLIA [id number] [place] [address] [place] Chloride [Moles/Vol] 95 mmol/L Low 98-107 [facility] Comment on above: Order Comment: Speci men Type: BLOOD SPECIMENOrdering Facility: [facility] Address: [address] [place] [address] Performed By: #### 2 4323-8, , 2950-2 ####[facility]ORATORYCLIA [id number] [place] [address] [place] CO2 [Moles/Vol] 27 mmol/L Normal 22-30 [facility] Comment on above: Order Comment: Speci men Type: BLOOD SPECIMENOrdering Facility: [facility] Address: [address] [place] [address] Performed By: #### 2 4323-8, , 2950-2 ####[facility]ORATORYCLIA [id number] [place] [address] [place] Creatinine [Mass/Vol] 0.84 mg/dL Normal 0.58-0.96 [facility] Comment on above: Order Comment: Fan meade Type: BLOOD SPECIMENOrdering Facility: [facility] Address: [address] [place] [address] Performed By: #### 2 4323-8, 74518-6, 295-2 ####[facility]ORATORYCLIA [id number] [place] [id number] [facility] Creatinine and Glomerular filtration rate.predicted panel (S/P/Bld) 67 mL/min/1.73m??? Normal >=60 [facility] Comment on above: Order Comment: Fan meade Type: BLOOD SPECIMENOrdering Facility: [facility] Address: [address] [place] [address] Result Comment: Hilda mated Glomerular Filtration Rate [...] GFR. Performed By: #### 2 4323-8, , 2 ####[facility]ORATORYCLIA [id number] [place] [id number] [facility] Glucose [Mass/Vol] 60 mg/dL Low 74-99 [facility] Comment on above: Order Comment: Fan meade Type: BLOOD SPECIMENOrdering Facility: [facility] Address: [address] [place] [address] Result Comment: The [place] Diabetes Association (ADA) provides guidance for cutoff [...] Standards of Medical Care in Diabetes 2016, [place] Diabetes Association. Diabetes Care. 2016.39(Suppl 1). Performed By: #### 2 4323-8, 21757-2, 295-2 ####[facility] LABORATORYCLIA [id number] [place] [address] [place] Potassium [Moles/Vol] 4.6 mmol/L Normal 3.7-5.1 [facility] Comment on above: Order Comment: Speci men Type: BLOOD SPECIMENOrdering Facility: [facility] Address: [address] [place], [place] [address] Performed By: #### 2 4323-8, , 2950-2 ####[facility] LABORATORYCLIA [id number] [place] [address] [place] Protein [Mass/Vol] 5.9 g/dL Low 6.3-8.0 [facility] Comment on above: Order Comment: Speci men Type: BLOOD SPECIMENOrdering Facility: [facility] Address: [address] [place], [place] [address] Performed By: #### 2 4323-8, 75866-1, 2950-2 ####[facility] LABORATORYCLIA [id number] [place] [address] [place] Urea nitrogen [Mass/Vol] 37 mg/dL High 06-03 [facility] Comment on above: Order Comment: Speci men Type: BLOOD SPECIMENOrdering Facility: [facility] Address: [address] [place], [place] [address] Performed By: #### 2 4323-8, , 2950-2 ####[facility]ORATORYCLIA [id number] [place] [id number] [place] Creatinine Unsp time (U) [Ma ss/Vol]on 12-04-2024 Creatinine (U) [Mass/Vol] 41.7 mg/dL Normal 20.0-300.0 [facility] Comment on above: Order Comment: Speci men Type: URINE SPECIMENOrdering Facility: [facility] Address: [address] [place] [address] Performed By: #### 3 5678-2, 26074-1, 96830-1 ####[facility] LABCLIA [id number] [place] [address] [place] Magnesium SerPl-mCncon 12-04 Magnesium [Mass/Vol] 2.0 mg/dL Normal 1.7-2.3 [facility] Comment on above: Order Comment: Speci men Type: BLOOD SPECIMENOrdering Facility: [facility] Address: [address] [place] [address] Performed By: #### 2 4323-8, 27829-0, 2951-2 ####[facility]ORATORYCLIA [id number] [address] [place] NUTRITIONon 12-04-2024 NUTRITION Normal [facility] Osmolality Uron 12-04-2024 Osmolality (U) [Osmolality] 412 mosm/kg Normal 50-1200 [facility] Comment on above: Order Comment: Speci men Type: URINE SPECIMENOrdering Facility: [facility] Address: [address] [place] [address] Performed By: #### 2 695-5 ####[facility] LABCLIA [id number] [address] [place] PATHOLOGIST INTERPRETATION C BC/DIFFon 12-04-2024 [employer] Teacher review Mckay (Unsp spec) [Interp] No review performed. [facility] Comment on above: Order Comment: Speci men Type: BLOOD SPECIMENOrdering Facility: [facility] Address: [address] [place] [address] Performed By: #### S TFREV ####[facility] LABCLIA [id number] [place] [address] [place]#### 39536-3 ####[facility]ORATORYCLIA [id number] [address] [place] STAFF REVIEW, CBCDIF Normal [facility] Comment on above: Order Comment: Speci men Type: BLOOD SPECIMENOrdering Facility: [facility] Address: [address] [place] [address] Performed By: #### S TFREV ####[facility] LABCLIA [id number] [facility] [id number] [place] [address]#### 94564-2 ####[facility]ORATORYCLIA [id number] [address] PT panel Coag (PPP)on 2024 INR Coag (PPP) [Relative time] 1.0 {INR} Normal 0.9-1.3 [facility] Comment on above: Order Comment: Speci men Type: BLOOD SPECIMENOrdering Facility: [facility] Address: [address] [place] [address] Result Comment: Kendra min K Antagonist (VKA) Therapeutic Range: INR 2 to 3 (Target INR of 2.5)Note: For patients treated with VKA drugs, such as warfarin, the [place] College [employer] Chest Physicians 2012 Guideline recommends [...] al. Chest 2012, 141:7S-47SNishimura RA, et al. [facility] 2017, 70: 252-289 Performed By: #### 3 4528-0 ####[facility]ORATORYCLIA [id number] [address] PT Coag (PPP) [Time] 10.6 s Normal 9.7-13.0 [facility] Comment on above: Order Comment: Fan meade Type: BLOOD SPECIMENOrdering Facility: [facility] Address: [address] [place] [address] Performed By: #### 3 4528-0 ####[facility] LABORATORYCLIA [id number] [place] [address] [place] Potassium ?Tm Ur-sCncon 11-15 Potassium Unsp time (U) [Moles/Vol] 41.7 mmol/L Normal 10.0-160.0 [facility] Comment on above: Order Comment: Speci men Type: URINE SPECIMENOrdering Facility: [facility] Address: [address] [place] [address] Performed By: #### 3 5678-2, 12617-9, 41990-6 ####[facility] LABCLIA [id number] [place] [address] [place] Sodium ?Tm Ur-sCncon 025 Sodium Unsp time (U) [Moles/Vol] <20 Normal 14-216 [facility] Comment on above: Order Comment: Speci men Type: URINE SPECIMENOrdering Facility: [facility] Address: [address] [place] [address] Performed By: #### 3 5678-2, 73863-2, 39805-9 ####[facility] LABCLIA [id number] [place] [address] [place] Sodium SerPl-sCncon 12-04-19 25 Sodium [Moles/Vol] 128 mmol/L Low 136-144 [facility] Comment on above: Order Comment: Speci men Type: BLOOD SPECIMENOrdering Facility: [facility] Address: [address] [place] [address] Performed By: #### 2 951-2 ####[facility]ORATORYCLIA [id number] [place] [address] [place] Sodium [Moles/Vol] 133 mmol/L Low 136-144 [facility] Comment on above: Order Comment: Speci men Type: BLOOD SPECIMENOrdering Facility: [facility] Address: [address] [place] [address] Performed By: #### 2 951-2 ####[facility]ORATORYCLIA [id number] [place] [address] [place] Sodium [Moles/Vol] 130 mmol/L Low 136-144 [facility] Comment on above: Order Comment: Speci men Type: BLOOD SPECIMENOrdering Facility: [facility] Address: [address] [place] [address] Performed By: #### 2 951-2 ####[facility]ORATORYCLIA [id number] [place] [address] [place] Sodium [Moles/Vol] 132 mmol/L Low 136-144 [facility] Comment on above: Order Comment: Speci men Type: BLOOD SPECIMENOrdering Facility: [facility] Address: [address] [place] [address] Performed By: #### 2 4323-8, 98515-1, 2951-2 ####[facility]ORATORYCLIA [id number] [place] [address] [place] Sodium [Moles/Vol] 132 mmol/L Low 136-144 [facility] Comment on above: Order Comment: Speci men Type: BLOOD SPECIMENOrdering Facility: [facility] Address: [address] [place] [address] Performed By: #### 2 951-2 ####[facility]ORATORYCLIA [id number] [place] [address] [place] THERAPY NTon 12-04-2024 THERAPY NT Normal [facility] ALLIED HEALTHon 12-03-2024 ALLIED HEALTH [facility] RUBEN BY IFA SCREENon 12-03-19 Nuclear Ab pattern (S) [Interp] Nuclear homogeneous Normal [facility] Comment on above: Order Comment: Speci men Type: BLOOD SPECIMENOrdering Facility: [facility] Address: [address] [place] [address] Performed By: #### A NAIFS ####[facility] LABCLIA [id number] [place] [address] [place] [place] Nuclear Ab Ql (S) Positive Abnormal Negative [facility] Comment on above: Order Comment: Speci men Type: BLOOD SPECIMENOrdering Facility: [facility] Address: [address] [place] [address] Result Comment: Anti -nuclear antibody test is used as an aid in diagnosis of systemic autoimmune diseases. Where positive and clinically warranted, follow-up using disease-specific testing is recommended. Low positive titers are not uncommon with advanced age, certain chronic infections, and malignancies among others.Test methodology: Indirect fluorescence immunoassay (IFA) using HEp-2 cells.1:160 Performed By: #### A NAYOSELINS ####[facility] LABCLIA [id number] [facility]ENTERDESK [id number] [place] CASE MANAGEMon 12-03-2024 CASE MANAGEM Normal [facility] CBC W Auto Differential pane l (Bld)on 12-03-2024 Basophils (Bld) [#/Vol] 0.06 10*3/uL Normal <0.11 [facility] Comment on above: Order Comment: Speci men Type: BLOOD SPECIMENOrdering Facility: [facility] Address: [address] [place] [address] Performed By: #### 5 7021-8 ####[facility] LABORATORYCLIA [id number] [place] [address] [place] Basophils/100 WBC (Bld) 0.3 % Normal [facility] Comment on above: Order Comment: Speci men Type: BLOOD SPECIMENOrdering Facility: [facility] Address: [address] [place] [address] Performed By: #### 5 7021-8 ####[facility] LABORATORYCLIA [id number] [place] [address] [place] Differential cell count method Nom (Bld) Auto Normal [facility] Comment on above: Order Comment: Speci men Type: BLOOD SPECIMENOrdering Facility: [facility] Address: [address] [place] [address] Performed By: #### 5 7021-8 ####[facility] LABORATORYCLIA [id number] [place] [address] [place] Eosinophils (Bld) [#/Vol] 0.18 10*3/uL Normal <0.46 [facility] Comment on above: Order Comment: Speci men Type: BLOOD SPECIMENOrdering Facility: [facility] Address: [address] [place] [address] Performed By: #### 5 7021-8 ####[facility] LABORATORYCLIA [id number] [place] [address] [place] Eosinophils/100 WBC (Bld) 0.9 % Normal [facility] Comment on above: Order Comment: Speci men Type: BLOOD SPECIMENOrdering Facility: [facility] Address: [address] [place] [address] Performed By: #### 5 7021-8 ####[facility] LABORATORYCLIA [id number] [place] [address] [place] Erythrocyte distribution width (RBC) [Ratio] 15.6 % High 11.5-15.0 [facility] Comment on above: Order Comment: Speci men Type: BLOOD SPECIMENOrdering Facility: [facility] Address: [address] [place] [address] Performed By: #### 5 7021-8 ####[facility] LABORATORYCLIA [id number] [address] [place] Hematocrit (Bld) [Volume fraction] 26.0 % Low 36.0-46.0 [facility] Comment on above: Order Comment: Speci men Type: BLOOD SPECIMENOrdering Facility: [facility] Address: [address] [place] [address] Performed By: #### 5 7021-8 ####[facility] LABORATORYCLIA [id number] [address] [place] Hemoglobin (Bld) [Mass/Vol] 8.5 g/dL Low 11.5-15.5 [facility] Comment on above: Order Comment: Speci men Type: BLOOD SPECIMENOrdering Facility: [facility] Address: [address] [place] [address] Performed By: #### 5 7021-8 ####[facility] LABORATORYCLIA [id number] [address] Immature granulocytes (Bld) [#/Vol] 0.29 10*3/uL High <0.10 [facility] Comment on above: Order Comment: Speci men Type: BLOOD SPECIMENOrdering Facility: [facility] Address: [address] [place] [address] Performed By: #### 5 7021-8 ####[facility] LABORATORYCLIA [id number] [address] Immature granulocytes/100 WBC (Bld) 1.5 % Normal [facility] Comment on above: Order Comment: Speci men Type: BLOOD SPECIMENOrdering Facility: [facility] Address: [address] [place] [address] Performed By: #### 5 7021-8 ####[facility] LABORATORYCLIA [id number] [address] [place] Lymphocytes (Bld) [#/Vol] 0.75 10*3/uL Low 1.00-4.00 [facility] Comment on above: Order Comment: Speci men Type: BLOOD SPECIMENOrdering Facility: [facility] Address: [address] [place] [address] Performed By: #### 5 7021-8 ####[facility] LABORATORYCLIA [id number] [address] Lymphocytes/100 WBC (Bld) 3.8 % Normal [facility] Comment on above: Order Comment: Speci men Type: BLOOD SPECIMENOrdering Facility: [facility] Address: [address] [place] [address] Performed By: #### 5 7021-8 ####[facility] LABORATORYCLIA [id number] [address] MCH (RBC) [Entitic mass] 28.5 pg Normal 26.0-34.0 [facility] Comment on above: Order Comment: Speci men Type: BLOOD SPECIMENOrdering Facility: [facility] Address: [address] [place] [address] Performed By: #### 5 7021-8 ####[facility] LABORATORYCLIA [id number] [address] MCHC (RBC) [Mass/Vol] 32.7 g/dL Normal 30.5-36.0 [facility] Comment on above: Order Comment: Speci men Type: BLOOD SPECIMENOrdering Facility: [facility] Address: [address] [place] [address] Performed By: #### 5 7021-8 ####[facility] LABORATORYCLIA [id number] [place] [address] [place] MCV (RBC) [Entitic vol] 87.2 fL Normal 80.0-100.0 M [facility] Comment on above: Order Comment: Speci men Type: BLOOD SPECIMENOrdering Facility: [facility] Address: [address] [place] [address] Performed By: #### 5 7021-8 ####[facility] LABORATORYCLIA [id number] [place] [address] [place] Monocytes (Bld) [#/Vol] 0.93 10*3/uL High <0.87 [facility] Comment on above: Order Comment: Speci men Type: BLOOD SPECIMENOrdering Facility: [facility] Address: [address] [place] [address] Performed By: #### 5 7021-8 ####[facility] LABORATORYCLIA [id number] [place] [address] [place] Monocytes/100 WBC (Bld) 4.7 % Normal [facility] Comment on above: Order Comment: Speci men Type: BLOOD SPECIMENOrdering Facility: [facility] Address: [address] [place] [address] Performed By: #### 5 7021-8 ####[facility] LABORATORYCLIA [id number] [place] [address] [place] Neutrophils (Bld) [#/Vol] 17.78 10*3/uL High 1.45-7.50 [facility] Comment on above: Order Comment: Speci men Type: BLOOD SPECIMENOrdering Facility: [facility] Address: [address] [place] [address] Performed By: #### 5 7021-8 ####[facility] LABORATORYCLIA [id number] [place] [address] [place] Neutrophils/100 WBC (Bld) 88.8 % Normal [facility] Comment on above: Order Comment: Speci men Type: BLOOD SPECIMENOrdering Facility: [facility] Address: [address] [place] [address] Performed By: #### 5 7021-8 ####[facility] LABORATORYCLIA [id number] [place] [address] [place] Nucleated RBC (Bld) [#/Vol] 10*3/uL Normal <0.01 [facility] Comment on above: Order Comment: Speci men Type: BLOOD SPECIMENOrdering Facility: [facility] Address: [address] [place] [address] Performed By: #### 5 7021-8 ####[facility] LABORATORYCLIA [id number] [place] [address] [place] Nucleated RBC/100 WBC (Bld) [Ratio] 0.0 /100 WBC Normal [facility] Comment on above: Order Comment: Speci men Type: BLOOD SPECIMENOrdering Facility: [facility] Address: [address] [place] [address] Performed By: #### 5 7021-8 ####[facility] LABORATORYCLIA [id number] [place] [address] [place] Platelet mean volume (Bld) [Entitic vol] 8.6 fL Low 9.0-12.7 [facility] Comment on above: Order Comment: Speci men Type: BLOOD SPECIMENOrdering Facility: [facility] Address: [address] [place] [address] Performed By: #### 5 7021-8 ####[facility] LABORATORYCLIA [id number] [place] [address] [place] Platelets (Bld) [#/Vol] 442 10*3/uL High 150-400 [facility] Comment on above: Order Comment: Speci men Type: BLOOD SPECIMENOrdering Facility: [facility] Address: [address] [place] [address] [place] [address] Performed By: #### 5 7021-8 ####[facility] LABORATORYCLIA [id number] [place] [address] [place] RBC (Bld) [#/Vol] 2.98 10*6/uL Low 3.90-5.20 [facility] Comment on above: Order Comment: Speci men Type: BLOOD SPECIMENOrdering Facility: [facility] Address: [address] [place] [address] Performed By: #### 5 7021-8 ####[facility] LABORATORYCLIA [id number] [address] [place] WBC (Bld) [#/Vol] 19.99 10*3/uL High 3.70-11.00 [facility] Comment on above: Order Comment: Speci men Type: BLOOD SPECIMENOrdering Facility: [facility] Address: [address] [place], [place] [address] [address] Performed By: #### 5 7021-8 ####[facility] LABORATORYCLIA [id number] [address] CONSULTon 12-03-2024 CONSULT Normal [facility] CONSULT Normal [facility] CONSULT PROGon 12-03-2024 CONSULT PROG Normal [facility] CONSULT PROG Normal [facility] CONSULT PROG Normal [facility] CRP SerPl-mCncon 12-03-2024 CRP [Mass/Vol] 20.0 mg/dL High <0.9 [facility] Comment on above: Order Comment: Speci men Type: BLOOD SPECIMENOrdering Facility: [facility] Address: [address] [place] [address] [place] [address] Performed By: #### 1 988-5, 92208-2, 79551-9 ####[facility]ORATORYCLIA [id number] [address] [facility] CT CHEST WO IVCONon 12-03-[address] CHEST WO IVCON Invalid Interpretation Code [facility] Comprehensive metabolic 2000 panelon 12-03-2024 Albumin [Mass/Vol] 2.5 g/dL Low 3.9-4.9 [facility] Comment on above: Order Comment: Speci men Type: BLOOD SPECIMENOrdering Facility: [facility] Address: [facility] [place] [address] Performed By: #### 1 988-5, 60570-8, 39206-6 ####[facility] LABORATORYCLIA [id number] [address] [place] ALP [Catalytic activity/Vol] 93 U/L Normal 34-123 [facility] Comment on above: Order Comment: Speci men Type: BLOOD SPECIMENOrdering Facility: [facility] Address: [address] [place] [id number] Performed By: #### 1 988-5, 45199-2, ####[facility] LABORATORYCLIA [id number] [address] [place] ALT [Catalytic activity/Vol] U/L Low 7-38 [facility] Comment on above: Order Comment: Speci men Type: BLOOD SPECIMENOrdering Facility: [facility] Address: [address] [place] [address] [place] [address] Performed By: #### 1 988-5, , ####[facility] LABORATORYCLIA [id number] [address] [place] Anion gap [Moles/Vol] 10 mmol/L Normal 8-15 [facility] Comment on above: Order Comment: Speci men Type: BLOOD SPECIMENOrdering Facility: [facility] Address: [facility] [place] [address] Performed By: #### 1 988-5, 42464-5, ####[facility] LABORATORYCLIA [id number] [address] [place] OF [facility] AST [Catalytic activity/Vol] 15 U/L Normal 13-35 [facility] Comment on above: Order Comment: Speci men Type: BLOOD SPECIMENOrdering Facility: [facility] Address: [address] [place] [address] Performed By: #### 1 988-5, 28964-0, ####[facility] LABORATORYCLIA [id number] [place] [id number] [place] Bilirubin [Mass/Vol] 0.2 mg/dL Normal 0.2-1.3 [facility] Comment on above: Order Comment: Speci men Type: BLOOD SPECIMENOrdering Facility: [facility] Address: [address] [facility] [place] [address] Performed By: #### 1 988-5, 18753-7, ####[facility] LABORATORYCLIA [id number] [place] [address] [place] Calcium [Mass/Vol] 9.2 mg/dL Normal 8.5-10.2 [facility] Comment on above: Order Comment: Speci men Type: BLOOD SPECIMENOrdering Facility: [facility] Address: [address] [place] [address] Performed By: #### 1 988-5, , ####[facility] LABORATORYCLIA [id number] [place] [address] [place] Chloride [Moles/Vol] 94 mmol/L Low 98-107 [facility] Comment on above: Order Comment: Speci men Type: BLOOD SPECIMENOrdering Facility: [facility] Address: [address] [place] [address] Performed By: #### 1 988-5, , ####[facility]ORATORYCLIA [id number] [place] [address] [place] CO2 [Moles/Vol] 24 mmol/L Normal 22-30 [facility] Comment on above: Order Comment: Speci men Type: BLOOD SPECIMENOrdering Facility: [facility] Address: [address] [place] [address] Performed By: #### 1 988-5, , ####[facility] LABORATORYCLIA [id number] [place] [address] [place] Creatinine [Mass/Vol] 0.92 mg/dL Normal 0.58-0.96 [facility] Comment on above: Order Comment: Speci men Type: BLOOD SPECIMENOrdering Facility: [facility] Address: [address] [place] [address] Performed By: #### 1 988-5, , ####[facility] LABORATORYCLIA [id number] [address] Creatinine and Glomerular filtration rate.predicted panel (S/P/Bld) 60 mL/min/1.73m??? Normal >=60 [facility] Comment on above: Order Comment: Fan meade Type: BLOOD SPECIMENOrdering Facility: [facility] Address: [address] [place] [id number] Result Comment: Hilda mated Glomerular Filtration Rate [...] actual GFR. Performed By: #### 1 988-5, 17661-6, ####[facility] LABORATORYCLIA [id number] [place] [address] [place] Glucose [Mass/Vol] 246 mg/dL High 74-99 [facility] Comment on above: Order Comment: Fan meade Type: BLOOD SPECIMENOrdering Facility: [facility] Address: [address] [place] [address] Result Comment: The [place] Diabetes Association (ADA) provides guidance for cutoff [...] Standards of Medical Care in Diabetes 2016, [place] Diabetes Association. Diabetes Care. 2016.39(Suppl 1). Performed By: #### 1 988-5, 99331-1, ####[facility]ORATORYCLIA [id number] [place] [address] [place] Potassium [Moles/Vol] 4.6 mmol/L Normal 3.7-5.1 [facility] Comment on above: Order Comment: Fan [facility] Type: BLOOD SPECIMENOrdering Facility: [facility] Address: [address] [place] [address] Performed By: #### 1 988-5, 99038-4, 73755-7 ####[facility] LABORATORYCLIA [id number] [address] [place] Protein [Mass/Vol] 5.7 g/dL Low 6.3-8.0 [facility] Comment on above: Order Comment: Speci men Type: BLOOD SPECIMENOrdering Facility: [facility] Address: [address] [place] [address] Performed By: #### 1 988-5, 29055-2, 42114-1 ####[facility] LABORATORYCLIA [id number] [place] [address] [place] Sodium [Moles/Vol] 128 mmol/L Low 136-144 [facility] Comment on above: Order Comment: Speci men Type: BLOOD SPECIMENOrdering Facility: [facility] Address: [address] [place] [address] Performed By: #### 1 988-5, , ####[facility] LABORATORYCLIA [id number] [place] [address] [place] Urea nitrogen [Mass/Vol] 37 mg/dL High 7-21 [facility] Comment on above: Order Comment: Speci men Type: BLOOD SPECIMENOrdering Facility: [facility] Address: [address] [place] [address] Performed By: #### 1 988-5, 27133-2, 40288-4 ####[facility] LABORATORYCLIA [id number] [address] [place] Cyclic citrullinated peptide IgG Qnon 12-03-2024 CCP ANTIBODY IGG QUALITATIVE Negative Normal Negative [facility] Comment on above: Order Comment: Speci men Type: BLOOD SPECIMENOrdering Facility: [facility] Address: [address] [place] [address] Performed By: #### 3 3935-8 ####[facility] LABCLIA [id number] [facility] [place] [address] [place] ESR Westergren method (Bld) [Velocity]on 12-03-2024 ESR (Bld) [Velocity] 124 mm/h High 0-20 [facility] Comment on above: Order Comment: Speci men Type: BLOOD SPECIMENOrdering Facility: [facility] Address: [address] [place] [address] Performed By: #### 4 537-7 ####[facility] LABCLIA [id number] [place] [address] [place] Magnesium SerPl-mCncon 12-03 Magnesium [Mass/Vol] 1.8 mg/dL Normal 1.7-2.3 [facility] Comment on above: Order Comment: Speci men Type: BLOOD SPECIMENOrdering Facility: [facility] Address: [address] [place] [address] Performed By: #### 1 988-5, 99125-8, 15561-1 ####[facility] LABORATORYCLIA [id number] [place] [address] [place] Rheumatoid fact SerPl-aCncon 12-03-2024 Rheumatoid factor Qn 19 [IU]/mL High <16 [facility] Comment on above: Order Comment: Speci men Type: BLOOD SPECIMENOrdering Facility: [facility] Address: [address] [place] [address] Performed By: #### 1 1572-5 ####[facility] LABCLIA [id number] [place] [address] [place] Sodium SerPl-sCncon 12-03-19 Sodium [Moles/Vol] 129 mmol/L Low 136-144 [facility] Comment on above: Order Comment: Speci men Type: BLOOD SPECIMENOrdering Facility: [facility] Address: [address] [place] [address] Performed By: #### 2 951-2 ####[facility] LABORATORYCLIA [id number] [place] [id number] [place] Sodium [Moles/Vol] 130 mmol/L Low 136-144 [facility] Comment on above: Order Comment: Speci men Type: BLOOD SPECIMENOrdering Facility: [facility] Address: [address] [place] [address] Performed By: #### 2 951-2 ####[facility] LABORATORYCLIA [id number] [place] [id number] [place] Sodium [Moles/Vol] 128 mmol/L Low 136-144 [facility] Comment on above: Order Comment: Speci men Type: BLOOD SPECIMENOrdering Facility: [facility] Address: [address] [place] [address] Performed By: #### 2 951-2 ####[facility] LABORATORYCLIA [id number] [place] [address] [place] THERAPY NTon 12-03-2024 THERAPY NT Normal [facility] THERAPY NT Normal [facility] THERAPY NT Normal [facility] cCP IgG SerPl-aCncon 025 Cyclic citrullinated peptide IgG Qn <15 Normal <20 [facility] Comment on above: Order Comment: Speci men Type: BLOOD SPECIMENOrdering Facility: [facility] Address: [address] [place] [address] Performed By: #### 3 3935-8 ####[facility] LABCLIA [id number] [place] [address] [place] 25(OH)D3 SerPl-mCncon 2024 25-hydroxyvitamin D3 [Mass/Vol] 13.4 ng/mL Low 31.0-80.0 [facility] Comment on above: Order Comment: Speci men Type: BLOOD SPECIMENOrdering Facility: [facility] Address: [address] [place] [address] Result Comment: Clas sification of 25 [place] Vitamin D status:Deficiency/Insufficiency: < or = 30 ng/ml.Sufficiency/Optimal Levels: 31-80 ng/mLToxicity: > 100 ng/mL.Test performed by chemiluminescent immunoassay. Performed By: #### 1 989-3, 47919-7, 16180-3, [facility], 6969-0 ####[facility] LABCLIA [id number] [place] [id number] [place] ALLIED HEALTHon 12-02-2024 ALLIED HEALTH Normal [facility] ARTERIAL BLOOD GASESon 12-02 Base excess Calc (Bld) [Moles/Vol] 4 mmol/L High 0-2 [facility] Comment on above: Order Comment: Speci men Type: ARTERIAL BLOOD SPECIMENOrdering Facility: [facility] Address: [address] [place] [address] Performed By: #### A LLBG ####[facility] [place] RESPIRATORYLORI VIL[place] [id number] [facility] RESPIRAT[facility] [id number] [address] Carboxyhemoglobin (BldA) [Mass fraction] 1.4 % Normal 0.0-2.0 [facility] Comment on above: Order Comment: Speci men Type: ARTERIAL BLOOD SPECIMENOrdering Facility: [facility] Address: [address] [place] [address] Result Comment: Carb oxyhemoglobin Reference Range for Smokers: 2.0-8.0% Performed By: #### A LLBG ####[place] [id number] [place] [address] RESPIRATORY [id number] [address] CO2 (Bld) [Partial pressure] 41 mm Hg Normal 36-46 [facility] Comment on above: Order Comment: Speci men Type: ARTERIAL BLOOD SPECIMENOrdering Facility: [facility] Address: [address] [place] [address] Performed By: #### A LLBG ####[place] [id number] [place] [address] RESPIRATORY [id number] [address] CO2 adjusted to patient's actual temperature (Bld) [Partial pressure] Normal [facility] Comment on above: Order Comment: Speci men Type: ARTERIAL BLOOD SPECIMENOrdering Facility: [facility] Address: [address] [place] [address] Performed By: #### A LLBG ####[id number] [place] [address] RESPIRATORY [id number] [address] [address] HCO3 (Bld) [Moles/Vol] 28 mmol/L High 22-26 [facility] Comment on above: Order Comment: Speci men Type: ARTERIAL BLOOD SPECIMENOrdering Facility: [facility] Address: [address] [place] [address] Performed By: #### A LLBG ####[facility] RESPIRATORYCLIA [id number] [facility] RESPIRATORY [id number] [address] Hemoglobin (Bld) [Mass/Vol] 10.3 g/dL Low 11.5-15.5 [facility] [facility] [place] Comment on above: Order Comment: Speci men Type: ARTERIAL BLOOD SPECIMENOrdering Facility: [facility] Address: [address] [id number] Performed By: #### A LLBG ####[facility] [place] RESPIRATORYIA [id number] [facility] RES[facility]IRAT[facility] [id number] [address] Lactate [Moles/Vol] 1.0 mmol/L Normal 0.5-2.2 [facility] Comment on above: Order Comment: Speci men Type: ARTERIAL BLOOD SPECIMENOrdering Facility: [facility] Address: [address] [place] [address] Performed By: #### A LLBG ####[facility] [place]ATORYST [facility] [id number] [facility]OSP[facility] RESPIRATORY [id number] [address] Methemoglobin (Bld) [Mass fraction] % Normal 0.0-1.5 [facility] [place] Comment on above: Order Comment: Speci men Type: ARTERIAL BLOOD SPECIMENOrdering Facility: [facility] Address: [address] [place] [address] Performed By: #### A LLBG ####[facility] [place] RESPIRATORYIA [id number] [facility]OS[facility] RESPIRATORY [id number] [address] O2 THERAPY RA=Room Air Normal [facility] [place] Comment on above: Order Comment: Speci men Type: ARTERIAL BLOOD SPECIMENOrdering Facility: [facility] Address: [address] [id number] Performed By: #### A LLBG ####[facility] [place] [facility] [id number] [facility]OS[facility] RESPIRATORY [id number] [address] Oxygen (Bld) [Partial pressure] 61 mm Hg Low 85-95 [facility] [place] Comment on above: Order Comment: Speci men Type: ARTERIAL BLOOD SPECIMENOrdering Facility: [facility] Address: [address] [place] [address] Performed By: #### A LLBG ####[facility] RESPIRATORYCLIA [id number] [facility]OS[facility] RESPIRATORY [id number] [address] Oxygen adjusted to patient's actual temperature (Bld) [Partial pressure] Normal [facility] [place] Comment on above: Order Comment: Speci men Type: ARTERIAL BLOOD SPECIMENOrdering Facility: [facility] Address: [address] [place] [address] Performed By: #### A LLBG ####[facility] [place] RESPIRATORYIA [id number] [facility] RESPIRATORY [id number] [address] [address] Oxyhemoglobin (BldA) [Mass fraction] 90 % Low 95-98 [facility] [place] Comment on above: Order Comment: Speci men Type: ARTERIAL BLOOD SPECIMENOrdering Facility: [facility] Address: [address] [place] [address] Performed By: #### A LLBG ####[facility] [place] RESPIRATORYIA [id number] [facility] RESPIRATORY [id number] [address] pH (Bld) 7.45 [pH] Normal 7.35-7.45 [facility] [place] Comment on above: Order Comment: Speci men Type: ARTERIAL BLOOD SPECIMENOrdering Facility: [facility] Address: [address] [place] [address] Performed By: #### A LLBG ####[facility] RESPIRATORYCLIA [id number] [facility]OSP[facility] RESPIRATORY [id number] [address] pH adjusted to patient's actual temperature (Bld) Normal [facility] [place] Comment on above: Order Comment: Speci men Type: ARTERIAL BLOOD SPECIMENOrdering Facility: [facility] Address: [address] [place] [address] Performed By: #### A LLBG ####[facility] RESPIRATORYCLIA [id number] [facility] RESPIRATORY [id number] [address] PO2 / FIO2 RATIO 290 mmHg Low >300 [facility] [place] Comment on above: Order Comment: Speci men Type: ARTERIAL BLOOD SPECIMENOrdering Facility: [facility] Address: [address] [place] [address] Performed By: #### A LLBG ####[facility] [place] RESPIRATORYCLIA [id number] [id number] [address] [address] Potassium [Moles/Vol] 4.0 mmol/L Normal 3.5-5.0 [facility] Comment on above: Order Comment: Speci men Type: ARTERIAL BLOOD SPECIMENOrdering Facility: [facility] Address: [address] [place] [address] Performed By: #### A LLBG ####[facility] [place] RESPIRATORYCLIA [id number] [facility] RESPIRAT[facility] [id number] [address] Ammonia Plas-sCncon 12-02-19 25 Ammonia (P) [Moles/Vol] 14 umol/L Normal 11-51 [facility] Comment on above: Order Comment: Speci men Type: BLOOD SPECIMENOrdering Facility: [facility] Address: [address] [place] [address] Performed By: #### 1 6362-6 ####[facility] [place] LABORATORYCLIA [id number] [address] [place] [facility] CBC W Auto Differential pane l (Bld)on 12-02-2024 Basophils (Bld) [#/Vol] 0.06 10*3/uL Normal <0.11 [facility] [place] Comment on above: Order Comment: Speci men Type: BLOOD SPECIMENOrdering Facility: [facility] Address: [address] [place] [address] Performed By: #### 5 7021-8 ####[facility] LABORATORYCLIA [id number] [address] Basophils/100 WBC (Bld) 0.3 % Normal [facility] Comment on above: Order Comment: Speci men Type: BLOOD SPECIMENOrdering Facility: [facility] Address: [address] [place] [address] Performed By: #### 5 7021-8 ####[facility] LABORATORYCLIA [id number] [address] [place] Differential cell count method Nom (Bld) Auto Normal [facility] [place] Comment on above: Order Comment: Speci men Type: BLOOD SPECIMENOrdering Facility: [facility] Address: [address] [place] [address] Performed By: #### 5 7021-8 ####[facility] LABORATORYCLIA [id number] [place] [address] [facility] [place] Eosinophils (Bld) [#/Vol] 0.24 10*3/uL Normal <0.46 [facility] [place] Comment on above: Order Comment: Speci men Type: BLOOD SPECIMENOrdering Facility: [facility] Address: [address] [place] [address] Performed By: #### 5 7021-8 ####[facility] LABORATORYCLIA [id number] [address] [place] Eosinophils/100 WBC (Bld) 1.2 % Normal [facility] [place] Comment on above: Order Comment: Speci men Type: BLOOD SPECIMENOrdering Facility: [facility] Address: [address] [place] [address] Performed By: #### 5 7021-8 ####[facility] LABORATORYCLIA [id number] [address] Erythrocyte distribution width (RBC) [Ratio] 15.6 % High 11.5-15.0 [facility] [place] Comment on above: Order Comment: Speci men Type: BLOOD SPECIMENOrdering Facility: [facility] Address: [address] [place] [address] Performed By: #### 5 7021-8 ####[facility] LABORATORYCLIA [id number] [address] [place] Hematocrit (Bld) [Volume fraction] 27.1 % Low 36.0-46.0 [facility] [place] Comment on above: Order Comment: Speci men Type: BLOOD SPECIMENOrdering Facility: [facility] Address: [address] [place] [address] Performed By: #### 5 7021-8 ####[facility] LABORATORYCLIA [id number] [place] [address] [place] Hemoglobin (Bld) [Mass/Vol] 9.0 g/dL Low 11.5-15.5 [facility] [place] Comment on above: Order Comment: Speci men Type: BLOOD SPECIMENOrdering Facility: [facility] Address: [address] [place] [address] Performed By: #### 5 7021-8 ####[facility] LABORATORYCLIA [id number] [place] [address] [place] Immature granulocytes (Bld) [#/Vol] 0.23 10*3/uL High <0.10 [facility] [place] Comment on above: Order Comment: Speci men Type: BLOOD SPECIMENOrdering Facility: [facility] Address: [address] [place] [address] Performed By: #### 5 7021-8 ####[facility] LABORATORYCLIA [id number] [place] [address] [place] Immature granulocytes/100 WBC (Bld) 1.2 % Normal [facility] [place] Comment on above: Order Comment: Speci men Type: BLOOD SPECIMENOrdering Facility: [facility] Address: [address] [place] [address] Performed By: #### 5 7021-8 ####[facility] LABORATORYCLIA [id number] [place] [address] [place] Lymphocytes (Bld) [#/Vol] 0.92 10*3/uL Low 1.00-4.00 [facility] [place] Comment on above: Order Comment: Speci men Type: BLOOD SPECIMENOrdering Facility: [facility] Address: [address] [place] [address] Performed By: #### 5 7021-8 ####[facility] LABORATORYCLIA [id number] [place] [address] [place] Lymphocytes/100 WBC (Bld) 4.7 % Normal [facility] [place] Comment on above: Order Comment: Speci men Type: BLOOD SPECIMENOrdering Facility: [facility] Address: [address] [place] [address] Performed By: #### 5 7021-8 ####[facility] LABORATORYCLIA [id number] [address] MCH (RBC) [Entitic mass] 28.2 pg Normal 26.0-34.0 [facility] [place] Comment on above: Order Comment: Speci men Type: BLOOD SPECIMENOrdering Facility: [facility] Address: [address] [place] [address] Performed By: #### 5 7021-8 ####[facility] LABORATORYCLIA [id number] [place] [address] [place] MCHC (RBC) [Mass/Vol] 33.2 g/dL Normal 30.5-36.0 [facility] Comment on above: Order Comment: Speci men Type: BLOOD SPECIMENOrdering Facility: [facility] Address: [address] [place] [address] Performed By: #### 5 7021-8 ####[facility] LABORATORYCLIA [id number] [address] MCV (RBC) [Entitic vol] 85.0 fL Normal 80.0-100.0 [facility] Comment on above: Order Comment: Speci men Type: BLOOD SPECIMENOrdering Facility: [facility] Address: [address] [place] [address] Performed By: #### 5 7021-8 ####[facility] LABORATORYCLIA [id number] [place] [address] [place] Monocytes (Bld) [#/Vol] 1.07 10*3/uL High <0.87 [facility] [place] Comment on above: Order Comment: Speci men Type: BLOOD SPECIMENOrdering Facility: [facility] Address: [address] [place] [address] Performed By: #### 5 7021-8 ####[facility] LABORATORYCLIA [id number] [address] Monocytes/100 WBC (Bld) 5.4 % Normal [facility] Comment on above: Order Comment: Speci men Type: BLOOD SPECIMENOrdering Facility: [facility] Address: [address] [place] [address] Performed By: #### 5 7021-8 ####[facility] LABORATORYCLIA [id number] [address] [place] Neutrophils (Bld) [#/Vol] 17.12 10*3/uL High 1.45-7.50 [facility] [place] Comment on above: Order Comment: Speci men Type: BLOOD SPECIMENOrdering Facility: [facility] Address: [address] [place] [address] Performed By: #### 5 7021-8 ####[facility] LABORATORYCLIA [id number] [address] [place] Neutrophils/100 WBC (Bld) 87.2 % Normal [facility] [place] Comment on above: Order Comment: Speci men Type: BLOOD SPECIMENOrdering Facility: [facility] Address: [address] [place] [address] Performed By: #### 5 7021-8 ####[facility] LABORATORYCLIA [id number] [place] [address] [place] Nucleated RBC (Bld) [#/Vol] 10*3/uL Normal <0.01 [facility] [place] Comment on above: Order Comment: Speci men Type: BLOOD SPECIMENOrdering Facility: [facility] Address: [address] [place] [address] Performed By: #### 5 7021-8 ####[facility] LABORATORYCLIA [id number] [address] Nucleated RBC/100 WBC (Bld) [Ratio] 0.0 /100 WBC Normal [facility] [place] Comment on above: Order Comment: Speci men Type: BLOOD SPECIMENOrdering Facility: [facility] Address: [address] [place] [address] Performed By: #### 5 7021-8 ####[facility] LABORATORYCLIA [id number] [place] [address] [place] Platelet mean volume (Bld) [Entitic vol] 8.8 fL Low 9.0-12.7 [facility] [place] Comment on above: Order Comment: Speci men Type: BLOOD SPECIMENOrdering Facility: [facility] Address: [address] [place] [address] Performed By: #### 5 7021-8 ####[facility] LABORATORYCLIA [id number] [address] [place] Platelets (Bld) [#/Vol] 439 10*3/uL High 150-400 [facility] [place] Comment on above: Order Comment: Speci men Type: BLOOD SPECIMENOrdering Facility: [facility] Address: [address] [place] [address] Performed By: #### 5 7021-8 ####[facility] LABORATORYCLIA [id number] [place] [address] [place] RBC (Bld) [#/Vol] 3.19 10*6/uL Low 3.90-5.20 [facility] Comment on above: Order Comment: Speci men Type: BLOOD SPECIMENOrdering Facility: [facility] Address: [address] [place] [address] Performed By: #### 5 7021-8 ####[facility] LABORATORYCLIA [id number] [address] [place] WBC (Bld) [#/Vol] 19.64 10*3/uL High 3.70-11.00 [facility] Comment on above: Order Comment: Speci men Type: BLOOD SPECIMENOrdering Facility: [facility] Address: [address] [place] [address] Performed By: #### 5 7021-8 ####[facility] LABORATORYCLIA [id number] [address] [place] CK SerPl-cCncon 12-02-2024 CK [Catalytic activity/Vol] 48 U/L Normal 42-196 [facility] [place] Comment on above: Order Comment: Speci men Type: BLOOD SPECIMENOrdering Facility: [facility] Address: [address] [place] [address] Performed By: #### 2 951-2, 2157-6, 3084-1 ####[facility] LABORATORYCLIA [id number] [place] [address] [facility] [place] CONSULT PROGon 12-02-2024 CONSULT PROG Normal [facility] [place] CRP SerPl-mCncon 12-02-2024 CRP [Mass/Vol] 14.2 mg/dL High <0.9 [facility] [place] Comment on above: Order Comment: Speci men Type: BLOOD SPECIMENOrdering Facility: [facility] Address: [address] [place] [address] Performed By: #### 3 084-1, , , 1988-03 ####[facility] [place] LABORATORYCLIA [id number] [place] [address] [facility] [place] Comprehensive metabolic 2000 panelon 12-02-2024 Albumin [Mass/Vol] 2.3 g/dL Low 3.9-4.9 [facility] [place] Comment on above: Order Comment: Speci men Type: BLOOD SPECIMENOrdering Facility: [facility] Address: [address] [place] [address] Performed By: #### 3 084-1, , , 1988-03 ####[facility] LABORATORYCLIA [id number] [place] [address] [place] ALP [Catalytic activity/Vol] 94 U/L Normal 34-123 [facility] [place] Comment on above: Order Comment: Speci men Type: BLOOD SPECIMENOrdering Facility: [facility] Address: [address] [place] [address] Performed By: #### 3 084-1, , , 1988-03 ####[facility] LABORATORYCLIA [id number] [place] [address] [place] ALT [Catalytic activity/Vol] U/L Low 7-38 [facility] [place] Comment on above: Order Comment: Speci men Type: BLOOD SPECIMENOrdering Facility: [facility] Address: [address] [place] [address] Performed By: #### 3 084-1, , , 1988-03 ####[facility] LABORATORYCLIA [id number] [place] [address] [place] Anion gap [Moles/Vol] 11 mmol/L Normal 8-15 [facility] Comment on above: Order Comment: Speci men Type: BLOOD SPECIMENOrdering Facility: [facility] Address: [address] [place] [address] Performed By: #### 3 084-1, , , 1988-03 ####[facility] LABORATORYCLIA [id number] [place] [address] [place] AST [Catalytic activity/Vol] 15 U/L Normal 13-35 [facility] [place] Comment on above: Order Comment: Speci men Type: BLOOD SPECIMENOrdering Facility: [facility] Address: [address] [id number] Performed By: #### 3 084-1, , , 1988-03 ####[facility] LABORATORYCLIA [id number] [place] [address] [place] Bilirubin [Mass/Vol] 0.2 mg/dL Normal 0.2-1.3 [facility] Comment on above: Order Comment: Speci men Type: BLOOD SPECIMENOrdering Facility: [facility] Address: [address] [place] [address] Performed By: #### 3 084-1, , , 1988-03 ####[facility] LABORATORYCLIA [id number] [place] [address] [place] Calcium [Mass/Vol] 9.0 mg/dL Normal 8.5-10.2 [facility] [place] Comment on above: Order Comment: Speci men Type: BLOOD SPECIMENOrdering Facility: [facility] Address: [address] [place] [address] Performed By: #### 3 084-1, , , 1988-03 ####[facility] LABORATORYCLIA [id number] [place] [address] [place] Chloride [Moles/Vol] 93 mmol/L Low 98-107 [facility] Comment on above: Order Comment: Speci men Type: BLOOD SPECIMENOrdering Facility: [facility] Address: [address] [place] [address] Performed By: #### 3 084-1, , , 1988-03 ####[facility] LABORATORYCLIA [id number] [place] [address] [place] CO2 [Moles/Vol] 24 mmol/L Normal 22-30 [facility] [place] Comment on above: Order Comment: Speci men Type: BLOOD SPECIMENOrdering Facility: [facility] Address: [address] [place] [address] Performed By: #### 3 084-1, , , 1988-03 ####[facility] LABORATORYCLIA [id number] [place] [address] [place] Creatinine [Mass/Vol] 0.89 mg/dL Normal 0.58-0.96 [facility] Comment on above: Order Comment: Speci men Type: BLOOD SPECIMENOrdering Facility: [facility] Address: [address] [place] [address] Performed By: #### 3 084-1, , , 1988-03 ####[facility] [place] LABORATORYCLIA [id number] [place] [id number] [place] [facility] Creatinine and Glomerular filtration rate.predicted panel (S/P/Bld) 62 mL/min/1.73m??? Normal >=60 [facility] [place] Comment on above: Order Comment: Speci [facility] Type: BLOOD SPECIMENOrdering Facility: [facility] Address: [address] [place] [address] Result Comment: Hilda mated Glomerular Filtration Rate [...] 3 084-1, , , 1988-03 ####[facility] LABORATORYCLIA [id number] [place] [address] [place] Glucose [Mass/Vol] 289 mg/dL High 74-99 [facility] [place] Comment on above: Order Comment: Fan meade Type: BLOOD SPECIMENOrdering Facility: [facility] Address: [address] [place] [address] Result Comment: The [place] Diabetes Association (ADA) provides guidance for cutoff [...] Standards of Medical Care in Diabetes 2016, [place] Diabetes Association. Diabetes Care. 2016.39(Suppl 1). Performed By: #### 3 084-1, , , 1988-03 ####[facility] LABORATORYCLIA [id number] [place] [address] [place] Potassium [Moles/Vol] 4.4 mmol/L Normal 3.7-5.1 [facility] Comment on above: Order Comment: Fan meade Type: BLOOD SPECIMENOrdering Facility: [facility] Address: [address] [place] [address] Performed By: #### 3 084-1, , , 1988-03 ####[facility] LABORATORYCLIA [id number] [place] [address] [place] Protein [Mass/Vol] 5.6 g/dL Low 6.3-8.0 [facility] [place] Comment on above: Order Comment: Fan meade Type: BLOOD SPECIMENOrdering Facility: [facility] Address: [address] [place], [place] [address] Performed By: #### 3 084-1, , , 1988-03 ####[facility] LABORATORYCLIA [id number] [place] [id number] [place] Sodium [Moles/Vol] 128 mmol/L Low 136-144 [facility] [place] Comment on above: Order Comment: Speci men Type: BLOOD SPECIMENOrdering Facility: [facility] Address: [address] [place] [address] Performed By: #### 3 084-1, , , 1988-03 ####[facility] LABORATORYCLIA [id number] [place] [address] [place] Urea nitrogen [Mass/Vol] 36 mg/dL High 7-21 [facility] [place] Comment on above: Order Comment: Speci men Type: BLOOD SPECIMENOrdering Facility: [facility] Address: [address] [place] [address] Performed By: #### 3 084-1, , , 1988-03 ####[facility] LABORATORYCLIA [id number] [place] [address] [place] DNA double strand Ab IA Qn ( S)on 12-02-2024 DNA ANTIBODY 117 IU/mL Normal <=200 [facility] [place] Comment on above: Order Comment: Speci men Type: BLOOD SPECIMENOrdering Facility: [facility] Address: [address] [place] [address] Result Comment: Nega tive: <200 IU/mLEquivocal: 201-300 IU/mLModerate Positive: 301-800 IU/mLStrong Positive: >801 IU/mL Performed By: #### 1 989-3, 27354-9, 72331-0, ANCAC, 6969-0 ####[facility] LABCLIA [id number] [place] [address] [place] DNA ANTIBODY QUALITATIVE INTERPRETATION Negative Normal Negative [facility] [place] Comment on above: Order Comment: Speci men Type: BLOOD SPECIMENOrdering Facility: [facility] Address: [address] [place] [address] Performed By: #### 1 989-3, 39668-7, 72369-2, ANCAC, 6969-0 ####[facility] LABCLIA [id number] [place] [address] [place] ESR Westergren method (Bld) [Velocity]on 12-02-2024 ESR (Bld) [Velocity] 120 mm/h High 0-20 [facility] Comment on above: Order Comment: Speci men Type: BLOOD SPECIMENOrdering Facility: [facility] Address: [address] [place] [address] Performed By: #### 4 537-7 ####[facility] LABCLIA [id number] [place] [address] [place] MRI BRAIN WO/W IVCONon 12-02 MRI BRAIN WO/W IVCON Normal [facility] MRI CERVICAL SPINE WO/W IVCO Non 12-02-2024 MRI CERVICAL SPINE WO/W IVCON Normal [facility] [place] MRI LUMBAR SPINE WO/W IVCONo n 12-02-2024 MRI LUMBAR SPINE WO/W IVCON Normal [facility] [place] MRI THORACIC SPINE WO/W IVCO Non 12-02-2024 MRI THORACIC SPINE WO/W IVCON Normal [facility] [place] Magnesium SerPl-mCncon 12-02 Magnesium [Mass/Vol] 1.5 mg/dL Low 1.7-2.3 [facility] Comment on above: Order Comment: Speci men Type: BLOOD SPECIMENOrdering Facility: [facility] Address: [address] [place] [address] Performed By: #### 3 084-1, 83157-6, 81662-4, 1988- ####[facility] LABORATORYCLIA [id number] [place] [address] [place] Myeloperoxidase Ab Ser-aCnco n 12-02-2024 Myeloperoxidase Ab Qn (S) <0.2 Normal <1.0 [facility] [place] Comment on above: Order Comment: Speci men Type: BLOOD SPECIMENOrdering Facility: [facility] Address: [address] [place] [address] Performed By: #### 1 989-3, 54561-0, 12583-6, [facility], 6969-0 ####[facility] LABCLIA [id number] [place] [address] [place] Osmolality SerPlon Osmolality [Osmolality] 285 mosm/kg Normal 275-300 [facility] Comment on above: Order Comment: Speci men Type: BLOOD SPECIMENOrdering Facility: [facility] Address: [address] [place] [address] Performed By: #### 2 692-2 ####[facility] LABCLIA [id number] [place] [address] [place] Osmolality Uron 12-02-2024 Osmolality (U) [Osmolality] 488 mosm/kg Normal 50-1200 [facility] [place] Comment on above: Order Comment: Speci men Type: URINE SPECIMENOrdering Facility: [facility] Address: [address] [place] [address] Performed By: #### 2 695-5 ####[facility] LABCLIA [id number] [place] [address] [place] PROTEINASE 3 ANTIBODYon 11-14 Proteinase 3 Ab Qn (S) <0.2 Normal <1.0 [facility] Comment on above: Order Comment: Speci men Type: BLOOD SPECIMENOrdering Facility: [facility] Address: [address] [place] [address] Performed By: #### 1 989-3, 44391-8, 75834-4, [facility], 6969-0 ####[facility] LABCLIA [id number] [place] [address] [place] Phosphate SerPl-mCncon 12-02 Phosphate [Mass/Vol] 3.0 mg/dL Normal 2.7-4.8 [facility] Comment on above: Order Comment: Speci men Type: BLOOD SPECIMENOrdering Facility: [facility] Address: [address] [place] [address] Performed By: #### 2 777-1 ####[facility]ORYCLIA [id number] [place] [address] [place] Smooth muscle Ab Ql (S)on ACTIN SMOOTH MUSCLE IGG QUALITATIVE Negative Normal Negative [facility] Comment on above: Order Comment: Speci men Type: BLOOD SPECIMENOrdering Facility: [facility] Address: [address] [place] [address] Performed By: #### 1 989-3, 97819-1, 73860-5, [facility], 6969-0 ####[facility] LABCLIA [id number] [address] [address] [place] ACTIN SMOOTH MUSCLE IGG QUANTITATIVE 3 Units Normal <20 [facility] Comment on above: Order Comment: Speci men Type: BLOOD SPECIMENOrdering Facility: [facility] Address: [address] [place] [address] Performed By: #### 1 989-3, 78607-9, 82433-6, ANCA, 6969-0 ####[facility] LABCLIA [id number] [place] [address] [place] Sodium SerPl-sCncon 12-02-19 25 Sodium [Moles/Vol] 127 mmol/L Low 136-144 [facility] Comment on above: Order Comment: Speci men Type: BLOOD SPECIMENOrdering Facility: [facility] Address: [address] [place] [address] Performed By: #### 2 951-2 ####[facility]ORYCLIA [id number] [place] [address] [place] Sodium [Moles/Vol] 130 mmol/L Low 136-144 [facility] Comment on above: Order Comment: Speci men Type: BLOOD SPECIMENOrdering Facility: [facility] Address: [address] [place] [address] Performed By: #### 2 951-2, 2157-6, 3084-1 ####[facility]ORYCLIA [id number] [place] [address] [place] US ABD RIGHT UPPER QUADRANTo n 12-02-2024 US ABD RIGHT UPPER QUADRANT Normal [facility] US ABD SPLEEN -NBon 12-02-19 25 US ABD SPLEEN -NB Normal [facility] US EXT MASS/FLUID COLLECTION LTon 12-02-2024 US EXT MASS/FLUID COLLECTION LT Normal [facility] Urate SerPl-mCncon 5 Urate [Mass/Vol] 4.9 mg/dL Normal 2.5-6.6 [facility] Comment on above: Order Comment: Speci men Type: BLOOD SPECIMENOrdering Facility: [facility] Address: [address] [place] [address] Performed By: #### 2 951-2, 2157-6, 3084-1 ####[facility]ORYCLIA [id number] [place] [address] [place] Urate [Mass/Vol] 5.1 mg/dL Normal 2.5-6.6 [facility] Comment on above: Order Comment: Speci men Type: BLOOD SPECIMENOrdering Facility: [facility] Address: [address] [place] [address] Performed By: #### 3 084-1, 88041-5, 56785-0, 1987- ####[facility]ORYCLIA [id number] [place] [id number] [place] ALLIED HEALTHon 12-01-2024 ALLIED HEALTH [facility] Bacteria Ur Culton 5 Bacteria identified Cx Nom (U) CULTURE, URINE: Mixed microbiota: ORGANISM ID: 1 <10,000 CFU/ml Lactose negative gram negative bacilli Insignificant colony count. No further workup. [facility] Comment on above: Performed By: #### 6 30-4 ####[facility] LABCLIA [id number] [facility] [id number] [id number] [place] Basic metabolic 2000 panelon 12-01-2024 Anion gap [Moles/Vol] 12 mmol/L Normal 8-15 [facility] Comment on above: Order Comment: Speci men Type: BLOOD SPECIMENOrdering Facility: [facility] Address: [address] [place] [address] Performed By: #### 2 4321-2 ####[facility]ORYCLIA [id number] [place] [address] [place] Calcium [Mass/Vol] 8.7 mg/dL Normal 8.5-10.2 [facility] Comment on above: Order Comment: Speci men Type: BLOOD SPECIMENOrdering Facility: [facility] Address: [address] [place] [address] Performed By: #### 2 4321-2 ####[facility]ATORYCLIA [id number] [address] Chloride [Moles/Vol] 91 mmol/L Low 98-107 [facility] Comment on above: Order Comment: Speci men Type: BLOOD SPECIMENOrdering Facility: [facility] Address: [address] [place] [address] Performed By: #### 2 4321-2 ####[facility]ORYCLIA [id number] [place] [id number] [facility] CO2 [Moles/Vol] 25 mmol/L Normal 22-30 [facility] Comment on above: Order Comment: Speci men Type: BLOOD SPECIMENOrdering Facility: [facility] Address: [address] [place] [address] Performed By: #### 2 4321-2 ####[facility]ATORYCLIA [id number] [address] [facility] Creatinine [Mass/Vol] 1.03 mg/dL High 0.58-0.96 [facility] Comment on above: Order Comment: Speci men Type: BLOOD SPECIMENOrdering Facility: [facility] Address: [address] [place] [address] Performed By: #### 2 4321-2 ####[facility]ATORYCLIA [id number] [address] Creatinine and Glomerular filtration rate.predicted panel (S/P/Bld) 52 mL/min/1.73m??? Low >=60 [facility] Comment on above: Order Comment: Speci men Type: BLOOD SPECIMENOrdering Facility: [facility] Address: [address] [place] [address] Result Comment: Hilda mated Glomerular Filtration Rate [...] Performed By: #### 2 4321-2 ####[facility]ATORYCLIA [id number] [place] [address] [place] Glucose [Mass/Vol] 200 mg/dL High 74-99 [facility] Comment on above: Order Comment: Fan meade Type: BLOOD SPECIMENOrdering Facility: [facility] Address: [address] [place] [address] Result Comment: [place] Diabetes Association (ADA) provides guidance for cutoff [...] Standards of Medical Care in Diabetes 2016, [place] Diabetes Association. Diabetes Care. 2016.39(Suppl 1). Performed By: #### 2 4321-2 ####[facility]ORYCLIA [id number] [place] [address] [place] Potassium [Moles/Vol] 4.7 mmol/L Normal 3.7-5.1 [facility] Comment on above: Order Comment: Fan meade Type: BLOOD SPECIMENOrdering Facility: [facility] Address: [address] [place] [address] Performed By: #### 2 4321-2 ####[facility]ATORYCLIA [id number] [place] [id number] [place] Sodium [Moles/Vol] 128 mmol/L Low 136-144 [facility] Comment on above: Order Comment: Fan meade Type: BLOOD SPECIMENOrdering Facility: [facility] Address: [address] [place] [address] Performed By: #### 2 4321-2 ####[facility]ORATORYCLIA [id number] [place] [address] [place] Urea nitrogen [Mass/Vol] 36 mg/dL High 7-21 [facility] Comment on above: Order Comment: Speci men Type: BLOOD SPECIMENOrdering Facility: [facility] Address: [address] [place] [address] Performed By: #### 2 4321-2 ####[facility]ORYCLIA [id number] [place] [address] [place] Anion gap [Moles/Vol] 12 mmol/L Normal 8-15 [facility] Comment on above: Order Comment: Speci men Type: BLOOD SPECIMENOrdering Facility: [facility] Address: [address] [place] [address] Performed By: #### 1 9123-9, 37605-3, 89199-6, 77752-9, 14632-9 ####[facility]ORYCLIA [id number] [place] [address] [place] Calcium [Mass/Vol] 9.4 mg/dL Normal 8.5-10.2 [facility] Comment on above: Order Comment: Speci men Type: BLOOD SPECIMENOrdering Facility: [facility] Address: [address] [place] [address] Performed By: #### 1 9123-9, 43993-1, 49201-8, 85351-4, 71480-6 ####[facility]ORYCLIA [id number] [place] [address] [place] Chloride [Moles/Vol] 92 mmol/L Low 98-107 [facility] Comment on above: Order Comment: Speci men Type: BLOOD SPECIMENOrdering Facility: [facility] Address: [address] [place] [address] Performed By: #### 1 9123-9, 56078-6, 22590-0, 90049-2, 21793-7 ####[facility]ORYCLIA [id number] [place] [address] [place] CO2 [Moles/Vol] 25 mmol/L Normal 22-30 [facility] Comment on above: Order Comment: Speci men Type: BLOOD SPECIMENOrdering Facility: [facility] Address: [address] [place] [address] Performed By: #### 1 9123-9, 05068-8, 18609-6, 32761-5, 06844-0 ####[facility]ORYCLIA [id number] [place] [address] [place] Creatinine [Mass/Vol] 0.95 mg/dL Normal 0.58-0.96 [facility] Comment on above: Order Comment: Fan meade Type: BLOOD SPECIMENOrdering Facility: [facility] Address: [address] [place] [address] Performed By: #### 1 9123-9, 21214-9, 23137-4, 51296-5, 94430-0 ####[facility]ORYCLIA [id number] [address] [place] Creatinine and Glomerular filtration rate.predicted panel (S/P/Bld) 58 mL/min/1.73m??? Low >=60 [facility] Comment on above: Order Comment: Fan meade Type: BLOOD SPECIMENOrdering Facility: [facility] Address: [address] [place] [address] Result Comment: Hilda mated Glomerular Filtration Rate [...] actual GFR. Performed By: #### 1 9123-9, 90615-0, 63377-3, 68755-2, 67119-0 ####[facility]ATORYCLIA [id number] [place] [id number] [place] Glucose [Mass/Vol] 230 mg/dL High 74-99 [facility] Comment on above: Order Comment: Fan meade Type: BLOOD SPECIMENOrdering Facility: [facility] Address: [address] [place] [address] Result Comment: The [place] Diabetes Association (ADA) provides guidance for cutoff [...] Standards of Medical Care in Diabetes 2016, [place] [employer] Association. Diabetes Care. 2016.39(Suppl 1). Performed By: #### 1 9123-9, 35450-1, 72746-1, 08738-9, 41354-9 ####[facility]ATORYCLIA [id number] [place] [address] [place] Potassium [Moles/Vol] 4.7 mmol/L Normal 3.7-5.1 [facility] Comment on above: Order Comment: Fan meade Type: BLOOD SPECIMENOrdering Facility: [facility] Address: [address] [place] [address] Performed By: #### 1 9123-9, 09270-8, 76934-0, 35644-1, 22454-3 ####[facility]ORYCLIA [id number] [place] [address] [place] Sodium [Moles/Vol] 129 mmol/L Low 136-144 [facility] Comment on above: Order Comment: Fan meade Type: BLOOD SPECIMENOrdering Facility: [facility] Address: [address] [place] [address] Performed By: #### 1 9123-9, 90061-9, 13982-2, 81526-9, 70159-7 ####[facility]ORYCLIA [id number] [place] [address] [place] Urea nitrogen [Mass/Vol] 36 mg/dL High 7-21 [facility] Comment on above: Order Comment: Fan meade Type: BLOOD SPECIMENOrdering Facility: [facility] Address: [address] [place] [address] Performed By: #### 1 9123-9, 02195-3, 83260-5, 37382-5, 06376-0 ####[facility]ORYCLIA [id number] [place] [address] [place] CBC W Auto Differential pane l (Bld)on 12-01-2024 Basophils (Bld) [#/Vol] 0.06 10*3/uL Normal <0.11 [facility] Comment on above: Order Comment: Speci men Type: BLOOD SPECIMENOrdering Facility: [facility] Address: [address] [place] [address] Performed By: #### 5 7021-8 ####[facility]ATORYCLIA [id number] [place] [address] [place] Basophils/100 WBC (Bld) 0.3 % Normal [facility] Comment on above: Order Comment: Speci men Type: BLOOD SPECIMENOrdering Facility: [facility] Address: [address] [place] [address] Performed By: #### 5 7021-8 ####[facility]ATORYCLIA [id number] [place] [address] [place] Differential cell count method Nom (Bld) Auto Normal [facility] Comment on above: Order Comment: Speci men Type: BLOOD SPECIMENOrdering Facility: [facility] Address: [address] [place] [address] Performed By: #### 5 7021-8 ####[facility]ORATORYCLIA [id number] [place] [address] [place] Eosinophils (Bld) [#/Vol] 0.20 10*3/uL Normal <0.46 [facility] Comment on above: Order Comment: Speci men Type: BLOOD SPECIMENOrdering Facility: [facility] Address: [address] [place] [address] Performed By: #### 5 7021-8 ####[facility]ATORYCLIA [id number] [address] [place] Eosinophils/100 WBC (Bld) 0.9 % Normal [facility] Comment on above: Order Comment: Speci men Type: BLOOD SPECIMENOrdering Facility: [facility] Address: [address] [place], [place] [address] Performed By: #### 5 7021-8 ####[facility]ORATORYCLIA [id number] [address] [place] Erythrocyte distribution width (RBC) [Ratio] 15.9 % High 11.5-15.0 [facility] Comment on above: Order Comment: Speci men Type: BLOOD SPECIMENOrdering Facility: [facility] Address: [address] [place] [address] Performed By: #### 5 7021-8 ####[facility]ORATORYCLIA [id number] [address] [place] Hematocrit (Bld) [Volume fraction] 26.6 % Low 36.0-46.0 [facility] Comment on above: Order Comment: Speci men Type: BLOOD SPECIMENOrdering Facility: [facility] Address: [address] [place] [address] Performed By: #### 5 7021-8 ####[facility]ATORYCLIA [id number] [address] [place] Hemoglobin (Bld) [Mass/Vol] 8.8 g/dL Low 11.5-15.5 [facility] Comment on above: Order Comment: Speci men Type: BLOOD SPECIMENOrdering Facility: [facility] Address: [address] [place] [address] Performed By: #### 5 7021-8 ####[facility]ORATORYCLIA [id number] [address] [place] Immature granulocytes (Bld) [#/Vol] 0.32 10*3/uL High <0.10 [facility] Comment on above: Order Comment: Speci men Type: BLOOD SPECIMENOrdering Facility: [facility] Address: [address] [place] [address] Performed By: #### 5 7021-8 ####[facility]ATORYCLIA [id number] [address] [place] Immature granulocytes/100 WBC (Bld) 1.4 % Normal [facility] Comment on above: Order Comment: Speci men Type: BLOOD SPECIMENOrdering Facility: [facility] Address: [address] [place] [address] Performed By: #### 5 7021-8 ####[facility]ORATORYCLIA [id number] [place] [address] [place] Lymphocytes (Bld) [#/Vol] 1.00 10*3/uL Normal 1.00-4.00 [facility] Comment on above: Order Comment: Speci men Type: BLOOD SPECIMENOrdering Facility: [facility] Address: [address] [place] [address] Performed By: #### 5 7021-8 ####[facility]ATORYCLIA [id number] [address] [place] Lymphocytes/100 WBC (Bld) 4.5 % Normal [facility] Comment on above: Order Comment: Speci men Type: BLOOD SPECIMENOrdering Facility: [facility] Address: [address] [place] [address] Performed By: #### 5 7021-8 ####[facility]ATORYCLIA [id number] [address] [place] MCH (RBC) [Entitic mass] 28.3 pg Normal 26.0-34.0 [facility] Comment on above: Order Comment: Speci men Type: BLOOD SPECIMENOrdering Facility: [facility] Address: [address] [place] [address] Performed By: #### 5 7021-8 ####[facility]ATORYCLIA [id number] [address] [place] MCHC (RBC) [Mass/Vol] 33.1 g/dL Normal 30.5-36.0 [facility] Comment on above: Order Comment: Speci men Type: BLOOD SPECIMENOrdering Facility: [facility] Address: [address] [place] [address] Performed By: #### 5 7021-8 ####[facility]ATORYCLIA [id number] [address] MCV (RBC) [Entitic vol] 85.5 fL Normal 80.0-100.0 [facility] Comment on above: Order Comment: Speci men Type: BLOOD SPECIMENOrdering Facility: [facility] Address: [address] [place] [address] Performed By: #### 5 7021-8 ####[facility]ORATORYCLIA [id number] [place] [address] [place] Monocytes (Bld) [#/Vol] 1.18 10*3/uL High <0.87 [facility] Comment on above: Order Comment: Speci men Type: BLOOD SPECIMENOrdering Facility: [facility] Address: [address] [place] [address] Performed By: #### 5 7021-8 ####[facility]ATORYCLIA [id number] [address] Monocytes/100 WBC (Bld) 5.3 % Normal [facility] Comment on above: Order Comment: Speci men Type: BLOOD SPECIMENOrdering Facility: [facility] Address: [address] [place] [address] Performed By: #### 5 7021-8 ####[facility]ORATORYCLIA [id number] [place] [address] [place] Neutrophils (Bld) [#/Vol] 19.49 10*3/uL High 1.45-7.50 [facility] Comment on above: Order Comment: Speci men Type: BLOOD SPECIMENOrdering Facility: [facility] Address: [address] [place] [address] Performed By: #### 5 7021-8 ####[facility]ORYCLIA [id number] [address] [place] Neutrophils/100 WBC (Bld) 87.6 % Normal [facility] Comment on above: Order Comment: Speci men Type: BLOOD SPECIMENOrdering Facility: [facility] Address: [address] [place] [address] Performed By: #### 5 7021-8 ####[facility]ORATORYCLIA [id number] [place] [address] [place] Nucleated RBC (Bld) [#/Vol] 10*3/uL Normal <0.01 [facility] Comment on above: Order Comment: Speci men Type: BLOOD SPECIMENOrdering Facility: [facility] Address: [address] [place] [address] Performed By: #### 5 7021-8 ####[facility]ORATORYCLIA [id number] [place] [address] [place] Nucleated RBC/100 WBC (Bld) [Ratio] 0.0 /100 WBC Normal [facility] Comment on above: Order Comment: Speci men Type: BLOOD SPECIMENOrdering Facility: [facility] Address: [address] [place] [address] [place] [address] Performed By: #### 5 7021-8 ####[facility] LABORATORYCLIA [id number] [place] [address] [place] Platelet mean volume (Bld) [Entitic vol] 8.7 fL Low 9.0-12.7 [facility] Comment on above: Order Comment: Speci men Type: BLOOD SPECIMENOrdering Facility: [facility] Address: [address] [place] [address] Performed By: #### 5 7021-8 ####[facility]ORATORYCLIA [id number] [place] [address] [place] Platelets (Bld) [#/Vol] 435 10*3/uL High 150-400 [facility] Comment on above: Order Comment: Speci men Type: BLOOD SPECIMENOrdering Facility: [facility] Address: [address] [place] [address] Performed By: #### 5 7021-8 ####[facility]ORATORYCLIA [id number] [place] [address] [place] RBC (Bld) [#/Vol] 3.11 10*6/uL Low 3.90-5.20 [facility] Comment on above: Order Comment: Speci men Type: BLOOD SPECIMENOrdering Facility: [facility] Address: [address] [place] [address] [place] [address] Performed By: #### 5 7021-8 ####[facility] LABORATORYCLIA [id number] [place] [address] [place] WBC (Bld) [#/Vol] 22.25 10*3/uL High 3.70-11.00 [facility] Comment on above: Order Comment: Speci men Type: BLOOD SPECIMENOrdering Facility: [facility] Address: [address] [place], [place] [address] [place] [address] Performed By: #### 5 7021-8 ####[facility]ATORYCLIA [id number] [address] [facility] CONSULT PROGon 12-01-2024 CONSULT PROG Normal [facility] CONSULT PROG Normal [facility] CT ABD/PEL W IVCONon 025 CT ABD/PEL W IVCON [facility] ECG COMPLETEon 12-01-2024 ECG COMPLETE [facility] Hepatic function 2000 panelo n 12-01-2024 Albumin [Mass/Vol] 2.7 g/dL Low 3.9-4.9 [facility] Comment on above: Order Comment: Speci men Type: BLOOD SPECIMENOrdering Facility: [facility] Address: [address] [place] [address] Performed By: #### 1 9123-9, 42586-7, 86757-0, 65914-8, 27359-6 ####[facility]ORATORYCLIA [id number] [address] [place] [facility] ALP [Catalytic activity/Vol] 79 U/L Normal 34-123 [facility] Comment on above: Order Comment: Speci men Type: BLOOD SPECIMENOrdering Facility: [facility] Address: [address] [place] [address] Performed By: #### 1 9123-9, 46453-1, 34098-8, 11405-9, 21910-7 ####[facility]ORATORYCLIA [id number] [address] ALT [Catalytic activity/Vol] U/L Low 7-38 [facility] Comment on above: Order Comment: Speci men Type: BLOOD SPECIMENOrdering Facility: [facility] Address: [address] [place] [address] Performed By: #### 1 9123-9, 92775-7, 98736-6, 91264-1, 16737-3 ####[facility]ORATORYCLIA [id number] [address] STATES OF [facility] AST [Catalytic activity/Vol] 20 U/L Normal 13-35 [facility] Comment on above: Order Comment: Speci men Type: BLOOD SPECIMENOrdering Facility: [facility] Address: [address] [place] [address] Performed By: #### 1 9123-9, 04044-9, 97275-1, 60351-5, 00381-2 ####[facility]ORYCLIA [id number] [address] [place] Bilirubin [Mass/Vol] 0.2 mg/dL Normal 0.2-1.3 [facility] Comment on above: Order Comment: Speci men Type: BLOOD SPECIMENOrdering Facility: [facility] Address: [address] [place] [address] Performed By: #### 1 9123-9, 28363-7, 99904-8, 60449-5, 26481-8 ####[facility]ORYCLIA [id number] [address] Bilirubin.conjugated [Mass/Vol] mg/dL Normal <0.3 [facility] Comment on above: Order Comment: Speci men Type: BLOOD SPECIMENOrdering Facility: [facility] Address: [address] [place] [address] Performed By: #### 1 9123-9, 92467-4, 18255-4, 07260-4, 74401-4 ####[facility]ORYCLIA [id number] [address] STATES OF [facility] Protein [Mass/Vol] 5.9 g/dL Low 6.3-8.0 [facility] Comment on above: Order Comment: Speci men Type: BLOOD SPECIMENOrdering Facility: [facility] Address: [address] [place] [address] Performed By: #### 1 9123-9, 92676-0, 13589-5, 97926-8, 77539-7 ####[facility]ORYCLIA [id number] [address] [place] MRI ANKLE WO IVCON LTon 11-145 MRI ANKLE WO IVCON LT Normal [facility] MRI FOOT/TOES WO IVCON LTon 12-01-2024 MRI FOOT/TOES WO IVCON LT Normal [facility] Magnesium SerPl-mCncon 12-01 Magnesium [Mass/Vol] 2.3 mg/dL Normal 1.7-2.3 [facility] Comment on above: Order Comment: Speci men Type: BLOOD SPECIMENOrdering Facility: [facility] Address: [address] [place] [address] Performed By: #### 1 9123-9, 99233-7, 94763-2, 57963-6, 60352-3 ####[facility]ORYCLIA [id number] [address] NT-proBNP SerPl-mCncon 12-01 Natriuretic peptide.B prohormone N-Terminal [Mass/Vol] 1162 pg/mL High <450 [facility] Comment on above: Order Comment: Speci men Type: BLOOD SPECIMENOrdering Facility: [facility] Address: [address] [place] [address] Performed By: #### 1 9123-9, 39681-2, 59666-2, 71681-4, 51515-3 ####[facility]ORYCLIA [id number] [address] Procalcitonin SerPl-ncon 0 12-01-2024 Procalcitonin [Mass/Vol] 0.24 ng/mL High <0.09 [facility] Comment on above: Order Comment: [facility] Type: BLOOD SPECIMENOrdering Facility: [facility] Address: [address] [place] [address] Result Comment: For a guided interpretation of test results, please visit the Change in Procalcitonin Calculator, [email or web address]. Performed By: #### 1 9123-9, 97542-8, 66112-5, 22179-3, 15772-2 ####[facility]ORYCLIA [id number] [address] [place] SEPSIS LACTATEon 12-01-2024 Lactate [Moles/Vol] 1.5 mmol/L Normal 0.5-2.0 [facility] Comment on above: Order Comment: Speci men Type: BLOOD SPECIMENOrdering Facility: [facility] Address: [address] [place] [address] Performed By: #### S LACT ####[facility]ORYCLIA [id number] [place] [address] [place] Sodium ?Tm Ur-sCncon 025 Sodium Unsp time (U) [Moles/Vol] 39 mmol/L Normal 14-216 [facility] Comment on above: Order Comment: Speci men Type: URINE SPECIMENOrdering Facility: [facility] Address: [address] [place] [address] Performed By: #### 3 5678-2 ####[facility] LABCLIA [id number] [facility] [place] [address] [place] URINALYSIS, REFLEX MICROSCOP ICon 12-01-2024 Bacteria LM.HPF (Urine sed) [#/Area] Few Abnormal None Seen [facility] Comment on above: Order Comment: Speci men Type: URINE SPECIMENOrdering Facility: [facility] Address: [address] [place] [address] Performed By: #### L [id number] ####[facility]ORATORYCLIA [id number] [place] [address] [place] Bilirubin Ql (U) Negative Normal Negative [facility] Comment on above: Order Comment: Speci men Type: URINE SPECIMENOrdering Facility: [facility] Address: [address] [place] [address] Performed By: #### L [id number] ####[facility]ORATORYCLIA [id number] [address] [place] Clarity (Unsp spec) Clear Normal Clear [facility] Comment on above: Order Comment: Speci men Type: URINE SPECIMENOrdering Facility: [facility] Address: [address] [place] [address] Performed By: #### L [id number] ####[facility]ORATORYCLIA [id number] [place] [address] [place] Color (U) Yellow Normal Yellow [facility] Comment on above: Order Comment: Speci men Type: URINE SPECIMENOrdering Facility: [facility] Address: [address] [place] [address] Performed By: #### L [id number] ####[facility]ORATORYCLIA [id number] [place] [address] [place] Epithelial cells LM.HPF (Urine sed) [#/Area] Few Normal [facility] Comment on above: Order Comment: Speci men Type: URINE SPECIMENOrdering Facility: [facility] Address: [address] [place] [address] Performed By: #### L [id number] ####[facility]ORATORYCLIA [id number] [place] [address] [place] Glucose Test strip (U) [Mass/Vol] Trace Abnormal Negative [facility] Comment on above: Order Comment: Speci men Type: URINE SPECIMENOrdering Facility: [facility] Address: [address] [place] [address] Performed By: #### L [id number] ####[facility]ORATORYCLIA [id number] [place] [address] [place] Hemoglobin Ql (U) Negative Normal Negative [facility] Comment on above: Order Comment: Speci men Type: URINE SPECIMENOrdering Facility: [facility] Address: [address] [place] [address] Performed By: #### L [id number] ####[facility]ORATORYCLIA [id number] [place] [address] [place] Ketones Ql (U) Trace Abnormal Negative [facility] Comment on above: Order Comment: Speci men Type: URINE SPECIMENOrdering Facility: [facility] Address: [address] [place] [address] Performed By: #### L [id number] ####[facility]ORATORYCLIA [id number] [place] [address] [place] Leukocyte esterase Test strip Ql (U) Trace Abnormal Negative [facility] Comment on above: Order Comment: Speci men Type: URINE SPECIMENOrdering Facility: [facility] Address: [address] [place] [address] Performed By: #### L [id number] ####[facility]ORATORYCLIA [id number] [place] [address] [place] Nitrite Ql (U) Negative Normal Negative [facility] Comment on above: Order Comment: Speci men Type: URINE SPECIMENOrdering Facility: [facility] Address: [address] [place] [address] Performed By: #### L [id number] ####[facility]ORATORYCLIA [id number] [place] [address] [place] pH (U) 5.5 [pH] Normal 5.0-8.0 [facility] Comment on above: Order Comment: Speci men Type: URINE SPECIMENOrdering Facility: [facility] Address: [address] [place] [address] Performed By: #### L [id number] ####[facility]ORYCLIA [id number] [address] Protein (U) [Mass/Vol] 2+ Abnormal Negative [facility] Comment on above: Order Comment: Speci men Type: URINE SPECIMENOrdering Facility: [facility] Address: [address] [place] [address] Performed By: #### L [id number] ####[facility]ATORYCLIA [id number] [address] [place] RBC LM.HPF (Urine sed) [#/Area] 0-3 /HPF Normal 0-3 /HPF [facility] Comment on above: Order Comment: Speci men Type: URINE SPECIMENOrdering Facility: [facility] Address: [address] [place] [address] Performed By: #### L [id number] ####[facility]ATORYCLIA [id number] [address] Specific gravity (U) [Rel density] 1.025 Normal 1.005-1.030 [facility] Comment on above: Order Comment: Speci men Type: URINE SPECIMENOrdering Facility: [facility] Address: [address] [place] [address] Performed By: #### L [id number] ####[facility]ATORYCLIA [id number] [address] Urobilinogen Ql (U) 0.2 EU/dL Normal 0.2-1.0 EU/dL [facility] Comment on above: Order Comment: Speci men Type: URINE SPECIMENOrdering Facility: [facility] Address: [address] [place] [address] Performed By: #### L [id number] ####[facility]ORATORYCLIA [id number] [address] [place] WBC LM.HPF (Urine sed) [#/Area] 6-10 /HPF Abnormal 0-5 /HPF [facility] Comment on above: Order Comment: Speci men Type: URINE SPECIMENOrdering Facility: [facility] Address: [address] [place] [address] Performed By: #### L [id number] ####[facility]ATORYCLIA [id number] [address] Yeast.budding LM.HPF (Urine sed) [#/Area] Few Abnormal None Seen [facility] Comment on above: Order Comment: Speci men Type: URINE SPECIMENOrdering Facility: [facility] Address: [address] [place] [address] Performed By: #### L [id number] ####[facility]ATORYCLIA [id number] [address] [place] ALLIED HEALTHon 11-30-2024 ALLIED HEALTH Normal [facility] Bacteria Bld Culton 11-30-19 25 Bacteria identified Cx Nom (Bld) CULTURE, BLOOD: No growth 5 days Normal [facility] Comment on above: Performed By: #### 6 -7 ####[facility] LABCLIA [id number] [address] Bacteria identified Cx Nom (Bld) CULTURE, BLOOD: No growth 5 days Normal [facility] Comment on above: Performed By: #### 6 00-7 ####[facility] LABCLIA [id number] [facility] [id number] [address] [place] Basic metabolic 2000 panelon 11-30-2024 Anion gap [Moles/Vol] 12 mmol/L Normal 8-15 [facility] Comment on above: Order Comment: Speci men Type: BLOOD SPECIMENOrdering Facility: [facility] Address: [address] [place] [address] Performed By: #### 2 4321-2, ####[facility]ORATORYCLIA [id number] [place] [id number] [place] Calcium [Mass/Vol] 9.1 mg/dL Normal 8.5-10.2 [facility] Comment on above: Order Comment: Speci men Type: BLOOD SPECIMENOrdering Facility: [facility] Address: [address] [place] [address] Performed By: #### 2 4321-2, ####[facility]ORATORYCLIA [id number] [place] [address] [place] Chloride [Moles/Vol] 95 mmol/L Low 98-107 [facility] Comment on above: Order Comment: Speci men Type: BLOOD SPECIMENOrdering Facility: [facility] Address: [address] [place] [address] Performed By: #### 2 4321-2, ####[facility]ORATORYCLIA [id number] [place] [address] [place] CO2 [Moles/Vol] 25 mmol/L Normal 22-30 [facility] Comment on above: Order Comment: Speci men Type: BLOOD SPECIMENOrdering Facility: [facility] Address: [address] [place] [address] Performed By: #### 2 4321-2, ####[facility]ORATORYCLIA [id number] [place] [id number] [place] Creatinine [Mass/Vol] 0.86 mg/dL Normal 0.58-0.96 [facility] Comment on above: Order Comment: Speci men Type: BLOOD SPECIMENOrdering Facility: [facility] Address: [address] [place] [address] Performed By: #### 2 4321-2, ####[facility]ORATORYCLIA [id number] [place] [address] [place] [facility] Creatinine and Glomerular filtration rate.predicted panel (S/P/Bld) 65 mL/min/1.73m??? Normal >=60 [facility] Comment on above: Order Comment: Fan meade Type: BLOOD SPECIMENOrdering Facility: [facility] Address: [address] [place] [address] Result Comment: Hilda mated Glomerular Filtration Rate [...] Performed By: #### 2 4321-2, ####[facility]ORATORYCLIA [id number] [place] [id number] [place] [facility] Glucose [Mass/Vol] 237 mg/dL High 74-99 [facility] Comment on above: Order Comment: Fan meade Type: BLOOD SPECIMENOrdering Facility: [facility] Address: [address] [place] [address] Result Comment: The [place] Diabetes Association (ADA) provides guidance for cutoff [...] Standards of Medical Care in Diabetes 2016, [place] Diabetes Association. Diabetes Care. 2016.39(Suppl 1). Performed By: #### 2 4321-2, ####[facility]ORATORYCLIA [id number] [place] [address] [place] Potassium [Moles/Vol] 4.2 mmol/L Normal 3.7-5.1 [facility] Comment on above: Order Comment: Speci men Type: BLOOD SPECIMENOrdering Facility: [facility] Address: [address] [place] [address] Performed By: #### 2 4321-2, 68852-4 ####[facility]ORATORYCLIA [id number] [place] [id number] [place] Sodium [Moles/Vol] 132 mmol/L Low 136-144 [facility] Comment on above: Order Comment: Speci men Type: BLOOD SPECIMENOrdering Facility: [facility] Address: [address] [place] [address] Performed By: #### 2 4321-2, ####[facility]ORATORYCLIA [id number] [place] [address] [place] Urea nitrogen [Mass/Vol] 26 mg/dL High 7-21 [facility] Comment on above: Order Comment: Speci men Type: BLOOD SPECIMENOrdering Facility: [facility] Address: [address] [place] [address] Performed By: #### 2 4321-2, ####[facility]ORATORYCLIA [id number] [address] [place] CASE MANAGEMon 11-30-2024 CASE MANAGEM Normal [facility] CASE MANAGEM Normal [facility] CBC W Auto Differential pane l (Bld)on 11-30-2024 Basophils (Bld) [#/Vol] 0.05 10*3/uL Normal <0.11 [facility] Comment on above: Order Comment: Speci men Type: BLOOD SPECIMENOrdering Facility: [facility] Address: [address] [place] [address] Performed By: #### 5 7021-8 ####[facility] LABORATORYCLIA [id number] [address] [place] Basophils/100 WBC (Bld) 0.3 % Normal [facility] Comment on above: Order Comment: Speci men Type: BLOOD SPECIMENOrdering Facility: [facility] Address: [address] [place] [address] Performed By: #### 5 7021-8 ####[facility] LABORATORYCLIA [id number] [address] [place] Differential cell count method Nom (Bld) Auto Normal [facility] Comment on above: Order Comment: Speci men Type: BLOOD SPECIMENOrdering Facility: [facility] Address: [address] [place] [address] Performed By: #### 5 7021-8 ####[facility] LABORATORYCLIA [id number] [place] [address] [place] Eosinophils (Bld) [#/Vol] 0.27 10*3/uL Normal <0.46 [facility] Comment on above: Order Comment: Speci men Type: BLOOD SPECIMENOrdering Facility: [facility] Address: [address] [place] [address] Performed By: #### 5 7021-8 ####[facility] LABORATORYCLIA [id number] [address] Eosinophils/100 WBC (Bld) 1.8 % Normal [facility] Comment on above: Order Comment: Speci men Type: BLOOD SPECIMENOrdering Facility: [facility] Address: [address] [place] [address] Performed By: #### 5 7021-8 ####[facility]ORATORYCLIA [id number] [address] [place] Erythrocyte distribution width (RBC) [Ratio] 15.6 % High 11.5-15.0 [facility] Comment on above: Order Comment: Speci men Type: BLOOD SPECIMENOrdering Facility: [facility] Address: [address] [place] [address] Performed By: #### 5 7021-8 ####[facility] LABORATORYCLIA [id number] [address] [place] Hematocrit (Bld) [Volume fraction] 29.9 % Low 36.0-46.0 [facility] Comment on above: Order Comment: Speci men Type: BLOOD SPECIMENOrdering Facility: [facility] Address: [address] [place] [address] Performed By: #### 5 7021-8 ####[facility] LABORATORYCLIA [id number] [place] [address] [place] Hemoglobin (Bld) [Mass/Vol] 9.9 g/dL Low 11.5-15.5 [facility] Comment on above: Order Comment: Speci men Type: BLOOD SPECIMENOrdering Facility: [facility] Address: [address] [place] [address] Performed By: #### 5 7021-8 ####[facility] LABORATORYCLIA [id number] [place] [address] [place] Immature granulocytes (Bld) [#/Vol] 0.24 10*3/uL High <0.10 [facility] Comment on above: Order Comment: Speci men Type: BLOOD SPECIMENOrdering Facility: [facility] Address: [address] [place] [address] Performed By: #### 5 7021-8 ####[facility] LABORATORYCLIA [id number] [place] [address] [place] Immature granulocytes/100 WBC (Bld) 1.6 % Normal [facility] Comment on above: Order Comment: Speci men Type: BLOOD SPECIMENOrdering Facility: [facility] Address: [address] [place] [address] Performed By: #### 5 7021-8 ####[facility] LABORATORYCLIA [id number] [place] [address] [place] Lymphocytes (Bld) [#/Vol] 0.92 10*3/uL Low 1.00-4.00 [facility] Comment on above: Order Comment: Speci men Type: BLOOD SPECIMENOrdering Facility: [facility] Address: [address] [place] [address] Performed By: #### 5 7021-8 ####[facility] LABORATORYCLIA [id number] [place] [address] [place] [facility] [place] Lymphocytes/100 WBC (Bld) 6.1 % Normal [facility] Comment on above: Order Comment: Speci men Type: BLOOD SPECIMENOrdering Facility: [facility] Address: [address] [place] [address] Performed By: #### 5 7021-8 ####[facility] LABORATORYCLIA [id number] [address] MCH (RBC) [Entitic mass] 28.3 pg Normal 26.0-34.0 [facility] Comment on above: Order Comment: Speci men Type: BLOOD SPECIMENOrdering Facility: [facility] Address: [address] [place] [address] Performed By: #### 5 7021-8 ####[facility] LABORATORYCLIA [id number] [place] [address] [place] MCHC (RBC) [Mass/Vol] 33.1 g/dL Normal 30.5-36.0 [facility] Comment on above: Order Comment: Speci men Type: BLOOD SPECIMENOrdering Facility: [facility] Address: [address] [place] [address] Performed By: #### 5 7021-8 ####[facility] LABORATORYCLIA [id number] [address] MCV (RBC) [Entitic vol] 85.4 fL Normal 80.0-100.0 [facility] Comment on above: Order Comment: Speci men Type: BLOOD SPECIMENOrdering Facility: [facility] Address: [address] [place] [address] Performed By: #### 5 7021-8 ####[facility] LABORATORYCLIA [id number] [address] [place] Monocytes (Bld) [#/Vol] 0.99 10*3/uL High <0.87 [facility] Comment on above: Order Comment: Speci men Type: BLOOD SPECIMENOrdering Facility: [facility] Address: [address] [place] [address] Performed By: #### 5 7021-8 ####[facility] LABORATORYCLIA [id number] [address] Monocytes/100 WBC (Bld) 6.6 % Normal [facility] Comment on above: Order Comment: Speci men Type: BLOOD SPECIMENOrdering Facility: [facility] Address: [address] [place] [address] Performed By: #### 5 7021-8 ####[facility] LABORATORYCLIA [id number] [place] [address] [place] Neutrophils (Bld) [#/Vol] 12.52 10*3/uL High 1.45-7.50 [facility] Comment on above: Order Comment: Speci men Type: BLOOD SPECIMENOrdering Facility: [facility] Address: [address] [place] [address] Performed By: #### 5 7021-8 ####[facility] LABORATORYCLIA [id number] [address] [place] Neutrophils/100 WBC (Bld) 83.6 % Normal [facility] Comment on above: Order Comment: Speci men Type: BLOOD SPECIMENOrdering Facility: [facility] Address: [address] [place] [address] Performed By: #### 5 7021-8 ####[facility] LABORATORYCLIA [id number] [place] [address] [place] Nucleated RBC (Bld) [#/Vol] 10*3/uL Normal <0.01 [facility] Comment on above: Order Comment: Speci men Type: BLOOD SPECIMENOrdering Facility: [facility] Address: [address] [place] [address] Performed By: #### 5 7021-8 ####[facility] LABORATORYCLIA [id number] [address] [place] Nucleated RBC/100 WBC (Bld) [Ratio] 0.0 /100 WBC Normal [facility] Comment on above: Order Comment: Speci men Type: BLOOD SPECIMENOrdering Facility: [facility] Address: [address] [place] [address] Performed By: #### 5 7021-8 ####[facility] LABORATORYCLIA [id number] [place] [address] [place] Platelet mean volume (Bld) [Entitic vol] 8.6 fL Low 9.0-12.7 [facility] Comment on above: Order Comment: Speci men Type: BLOOD SPECIMENOrdering Facility: [facility] Address: [address] [place] [address] Performed By: #### 5 7021-8 ####[facility] LABORATORYCLIA [id number] [address] Platelets (Bld) [#/Vol] 436 10*3/uL High 150-400 [facility] Comment on above: Order Comment: Speci men Type: BLOOD SPECIMENOrdering Facility: [facility] Address: [address] [place] [address] Performed By: #### 5 7021-8 ####[facility] LABORATORYCLIA [id number] [place] [address] [place] RBC (Bld) [#/Vol] 3.50 10*6/uL Low 3.90-5.20 [facility] Comment on above: Order Comment: Speci men Type: BLOOD SPECIMENOrdering Facility: [facility] Address: [address] [place] [address] Performed By: #### 5 7021-8 ####[facility] LABORATORYCLIA [id number] [address] [place] WBC (Bld) [#/Vol] 14.99 10*3/uL High 3.70-11.00 [facility] [facility] Comment on above: Order Comment: Speci men Type: BLOOD SPECIMENOrdering Facility: [facility] Address: [address] [place] [address] Performed By: #### 5 7021-8 ####[facility] LABORATORYCLIA [id number] [address] [place] CONSULT PROGon 11-30-2024 CONSULT PROG Normal [facility] CONSULT PROG Normal [facility] Magnesium SerPl-mCncon 11-30 Magnesium [Mass/Vol] 1.6 mg/dL Low 1.7-2.3 [facility] Comment on above: Order Comment: Speci men Type: BLOOD SPECIMENOrdering Facility: [facility] Address: [address] [place] [address] Performed By: #### 2 4321-2, 21711-8 ####[facility] LABORATORYCLIA [id number] [address] [place] Urinalysis complete panel (U )on 11-30-2024 Bacteria LM.HPF (Urine sed) [#/Area] Few Abnormal None Seen [facility] Comment on above: Order Comment: Speci men Type: URINE SPECIMENOrdering Facility: [facility] Address: [address] [place] [address] Performed By: #### 2 4356-8 ####V[facility]ARRE[facility] LABORATORYCLIA [id number] [place] [address] [place] Bilirubin Ql (U) Negative Normal Negative [facility] Comment on above: Order Comment: Speci men Type: URINE SPECIMENOrdering Facility: [facility] Address: [address] [place] [address] Performed By: #### 2 4356-8 ####VILLARREAL LABORATORYCLIA [id number] [address] Clarity (Unsp spec) Clear Normal Clear [facility] Comment on above: Order Comment: Speci men Type: URINE SPECIMENOrdering Facility: [facility] Address: [address] [place] [address] Performed By: #### 2 4356-8 ####[facility] LABORATORYCLIA [id number] [address] Color (U) Yellow Normal Yellow [facility] Comment on above: Order Comment: Speci men Type: URINE SPECIMENOrdering Facility: [facility] Address: [address] [place] [address] Result Comment: Urin e received in non-preservative tube. Interpret results with caution. To ensure optimal and accurate results, transfer urine to the BD Vacutainer Plus urine preservative tube. Performed By: #### 2 4356-8 ####VILLARRE[facility] LABORATORYCLIA [id number] [address] Epithelial cells LM.HPF (Urine sed) [#/Area] Few Normal [facility] Comment on above: Order Comment: Speci men Type: URINE SPECIMENOrdering Facility: [facility] Address: [address] [place] [address] Performed By: #### 2 4356-8 ####VILLARREAL LABORATORYCLIA [id number] [address] [place] Glucose Test strip (U) [Mass/Vol] 1+ Abnormal Negative [facility] Comment on above: Order Comment: Speci men Type: URINE SPECIMENOrdering Facility: [facility] Address: [address] [place] [address] Performed By: #### 2 4356-8 ####VILLARREAL LABORATORYCLIA [id number] [place] [address] [place] Hemoglobin Ql (U) Negative Normal Negative [facility] Comment on above: Order Comment: Speci men Type: URINE SPECIMENOrdering Facility: [facility] Address: [address] [place] [address] Performed By: #### 2 4356-8 ####VILLARREAL LABORATORYCLIA [id number] [place] [address] [place] Ketones Ql (U) Trace Abnormal Negative [facility] Comment on above: Order Comment: Speci men Type: URINE SPECIMENOrdering Facility: [facility] Address: [address] [place] [address] Performed By: #### 2 4356-8 ####VILLARREAL LABORATORYCLIA [id number] [address] Leukocyte esterase Test strip Ql (U) Trace Abnormal Negative [facility] Comment on above: Order Comment: Speci men Type: URINE SPECIMENOrdering Facility: [facility] Address: [address] [place] [address] Performed By: #### 2 4356-8 ####VILLARREAL LABORATORYCLIA [id number] [place] [address] [place] Nitrite Ql (U) Negative Normal Negative [facility] Comment on above: Order Comment: Speci men Type: URINE SPECIMENOrdering Facility: [facility] Address: [address] [place] [address] Performed By: #### 2 4356-8 ####VILLARREAL LABORATORYCLIA [id number] [address] [place] pH (U) 6.5 [pH] Normal 5.0-8.0 [facility] Comment on above: Order Comment: Speci men Type: URINE SPECIMENOrdering Facility: [facility] Address: [address] [place] [address] Performed By: #### 2 4356-8 ####VILLARREAL LABORATORYCLIA [id number] [address] [place] Protein (U) [Mass/Vol] 1+ Abnormal Negative [facility] Comment on above: Order Comment: Speci men Type: URINE SPECIMENOrdering Facility: [facility] Address: [address] [place] [address] Performed By: #### 2 4356-8 ####[facility] LABORATORYCLIA [id number] [place] [address] [place] RBC LM.HPF (Urine sed) [#/Area] 0-3 /HPF Normal 0-3 /HPF [facility] Comment on above: Order Comment: Speci men Type: URINE SPECIMENOrdering Facility: [facility] Address: [address] [place] [address] Performed By: #### 2 4356-8 ####[facility] LABORATORYCLIA [id number] [address] [place] Specific gravity (U) [Rel density] 1.010 Normal 1.005-1.030 [facility] Comment on above: Order Comment: Speci men Type: URINE SPECIMENOrdering Facility: [facility] Address: [address] [place] [address] Performed By: #### 2 4356-8 ####VILLARREAL LABORATORYCLIA [id number] [address] [place] Urobilinogen Ql (U) 0.2 EU/dL Normal 0.2-1.0 EU/dL [facility] Comment on above: Order Comment: Speci men Type: URINE SPECIMENOrdering Facility: [facility] Address: [address] [place] [address] Performed By: #### 2 4356-8 ####VILLARREAL LABORATORYCLIA [id number] [place] [address] [place] WBC LM.HPF (Urine sed) [#/Area] 0-5 /HPF Normal 0-5 /HPF [facility] Comment on above: Order Comment: Speci men Type: URINE SPECIMENOrdering Facility: [facility] Address: [address] [place] [address] Performed By: #### 2 4356-8 ####[facility] LABORATORYCLIA [id number] [place] [address] [place] Yeast.budding LM.HPF (Urine sed) [#/Area] Few Abnormal None Seen [facility] Comment on above: Order Comment: Speci men Type: URINE SPECIMENOrdering Facility: [facility] Address: [address] [place] [address] Performed By: #### 2 4356-8 ####[facility] LABORATORYCLIA [id number] [place] [address] [place] XR CHEST 1V FRONTAL PORTon 0 11-30-2024 XR CHEST 1V FRONTAL PORT Normal [facility] Basic metabolic 2000 panelon 11-29-2024 Anion gap [Moles/Vol] 13 mmol/L Normal 8-15 [facility] Comment on above: Order Comment: Speci men Type: BLOOD SPECIMENOrdering Facility: [facility] Address: [address] [place] [address] Performed By: #### 2 4321-2, 68566-3 ####[facility] LABORATORYCLIA [id number] [place] [address] [place] Calcium [Mass/Vol] 8.8 mg/dL Normal 8.5-10.2 [facility] Comment on above: Order Comment: Speci men Type: BLOOD SPECIMENOrdering Facility: [facility] Address: [address] [place] [address] Performed By: #### 2 4321-2, ####[facility] LABORATORYCLIA [id number] [place] [address] [place] Chloride [Moles/Vol] 95 mmol/L Low 98-107 [facility] Comment on above: Order Comment: Speci men Type: BLOOD SPECIMENOrdering Facility: [facility] Address: [address] [place] [address] Performed By: #### 2 432-2, ####VILLARREAL LABORATORYCLIA [id number] [place] [address] [place] CO2 [Moles/Vol] 25 mmol/L Normal 22-30 [facility] Comment on above: Order Comment: Speci men Type: BLOOD SPECIMENOrdering Facility: [facility] Address: [address] [place] [address] Performed By: #### 2 432-2, ####VILLARRE[facility] LABORATORYCLIA [id number] [place] [address] [place] Creatinine [Mass/Vol] 0.80 mg/dL Normal 0.58-0.96 [facility] Comment on above: Order Comment: Speci men Type: BLOOD SPECIMENOrdering Facility: [facility] Address: [address] [place] [address] Performed By: #### 2 2, ####VILLARREAL LABORATORYCLIA [id number] [address] Creatinine and Glomerular filtration rate.predicted panel (S/P/Bld) 71 mL/min/1.73m??? Normal >=60 [facility] Comment on above: Order Comment: Speci men Type: BLOOD SPECIMENOrdering Facility: [facility] Address: [address] [place] [address] Result Comment: Hilda mated Glomerular Filtration Rate [...] reflect actual GFR. Performed By: #### 2 432-2, ####VILLARREAL LABORATORYCLIA [id number] [place] [id number] [place] Glucose [Mass/Vol] 287 mg/dL High 74-99 [facility] Comment on above: Order Comment: Speci men Type: BLOOD SPECIMENOrdering Facility: [facility] Address: [address] [id number] Result Comment: [place] Diabetes Association (ADA) provides guidance for cutoff [...] Standards of Medical Care in Diabetes 2016, [place] Diabetes Association. Diabetes Care. 2016.39(Suppl 1). Performed By: #### 2 4320-, ####VILLARREAL LABORATORYCLIA [id number] [place] [address] [place] Potassium [Moles/Vol] 4.1 mmol/L Normal 3.7-5.1 [facility] Comment on above: Order Comment: Fan [place] Type: BLOOD SPECIMENOrdering Facility: [facility] Address: [address] [place] [address] Performed By: #### 2 4320-12, ####VILLARRE[facility] LABORATORYCLIA [id number] [place] [address] [place] Sodium [Moles/Vol] 133 mmol/L Low 136-144 [facility] Comment on above: Order Comment: Fan [place] Type: BLOOD SPECIMENOrdering Facility: [facility] Address: [address] [place] [address] Performed By: #### 2 4320-12, ####VILLARREAL LABORATORYCLIA [id number] [place] [address] [place] Urea nitrogen [Mass/Vol] 30 mg/dL High 7-21 [facility] Comment on above: Order Comment: Fan [place] Type: BLOOD SPECIMENOrdering Facility: [facility] Address: [address] [place], [place] [id number] Performed By: #### 2 4320-12, 63709-9 ####[facility] LABORATORYCLIA [id number] [address] [place] CASE MANAGEMon 11-29-2024 CASE MANAGEM Normal [facility] CASE MANAGEM Normal [facility] CBC panel Auto (Bld)on 11-29 Erythrocyte distribution width (RBC) [Ratio] 15.2 % High 11.5-15.0 [facility] Comment on above: Order Comment: Speci men Type: BLOOD SPECIMENOrdering Facility: [facility] Address: [address] [place] [address] Performed By: #### 5 8410-2 ####VILLARREAL LABORATORYCLIA [id number] [address] Hematocrit (Bld) [Volume fraction] 27.9 % Low 36.0-46.0 [facility] Comment on above: Order Comment: Speci men Type: BLOOD SPECIMENOrdering Facility: [facility] Address: [address] [place] [address] Performed By: #### 5 8410-2 ####VILLAR[facility] LABORATORYCLIA [id number] [address] [place] Hemoglobin (Bld) [Mass/Vol] 9.3 g/dL Low 11.5-15.5 [facility] Comment on above: Order Comment: Speci men Type: BLOOD SPECIMENOrdering Facility: [facility] Address: [address] [place] [address] Performed By: #### 5 8410-2 ####VILLARREAL LABORATORYCLIA [id number] [address] MCH (RBC) [Entitic mass] 28.2 pg Normal 26.0-34.0 [facility] Comment on above: Order Comment: Speci men Type: BLOOD SPECIMENOrdering Facility: [facility] Address: [address] [place] [address] Performed By: #### 5 8410-2 ####VILLARRE[facility] LABORATORYCLIA [id number] [address] MCHC (RBC) [Mass/Vol] 33.3 g/dL Normal 30.5-36.0 [facility] Comment on above: Order Comment: Speci men Type: BLOOD SPECIMENOrdering Facility: [facility] Address: [facility] [place] [address] Performed By: #### 5 8410-2 ####VILLARREAL LABORATORYCLIA [id number] [address] [place] MCV (RBC) [Entitic vol] 84.5 fL Normal 80.0-100.0 [facility] Comment on above: Order Comment: Speci men Type: BLOOD SPECIMENOrdering Facility: [facility] Address: [address] [place] [address] Performed By: #### 5 8410-2 ####VILLARRE[facility] LABORATORYCLIA [id number] [address] Nucleated RBC (Bld) [#/Vol] 10*3/uL Normal <0.01 [facility] Comment on above: Order Comment: Speci men Type: BLOOD SPECIMENOrdering Facility: [facility] Address: [address] [place] [address] Performed By: #### 5 8410-2 ####VILLARREAL LABORATORYCLIA [id number] [address] [place] Platelet mean volume (Bld) [Entitic vol] 8.8 fL Low 9.0-12.7 [facility] Comment on above: Order Comment: Speci men Type: BLOOD SPECIMENOrdering Facility: [facility] Address: [address] [place] [address] Performed By: #### 5 8410-2 ####V[facility] LABORATORYCLIA [id number] [address] [place] Platelets (Bld) [#/Vol] 425 10*3/uL High 150-400 [facility] Comment on above: Order Comment: Speci men Type: BLOOD SPECIMENOrdering Facility: [facility] Address: [address] [place] [address] Performed By: #### 5 8410-2 ####VILLARREAL LABORATORYCLIA [id number] [place] [address] [place] RBC (Bld) [#/Vol] 3.30 10*6/uL Low 3.90-5.20 [facility] Comment on above: Order Comment: Speci men Type: BLOOD SPECIMENOrdering Facility: [facility] Address: [facility] [place] [address] Performed By: #### 5 8410-2 ####[facility] LABORATORYCLIA [id number] [place] [address] [place] WBC (Bld) [#/Vol] 12.17 10*3/uL High 3.70-11.00 [facility] Comment on above: Order Comment: Speci men Type: BLOOD SPECIMENOrdering Facility: [facility] Address: [address] [place] [address] Performed By: #### 5 8410-2 ####[facility] LABORATORYCLIA [id number] [address] CONSULT PROGon 11-29-2024 CONSULT PROG Normal [facility] CONSULT PROG [facility] Magnesium SerPl-mCncon 11-29 Magnesium [Mass/Vol] 1.4 mg/dL Low 1.7-2.3 [facility] Comment on above: Order Comment: Speci men Type: BLOOD SPECIMENOrdering Facility: [facility] Address: [address] [place] [address] Performed By: #### 2 4321-2, ####[facility] LABORATORYCLIA [id number] [place] [id number] [place] Basic metabolic 2000 panelon 11-28-2024 Anion gap [Moles/Vol] 14 mmol/L Normal 8-15 [facility] Comment on above: Order Comment: Speci men Type: BLOOD SPECIMENOrdering Facility: [facility] Address: [address] [place] [address] Performed By: #### 2 4321-2, 95489-4, 2777-1 ####[facility] LABORATORYCLIA [id number] [place] [id number] [place] Calcium [Mass/Vol] 9.4 mg/dL Normal 8.5-10.2 [facility] Comment on above: Order Comment: Speci men Type: BLOOD SPECIMENOrdering Facility: [facility] Address: [address] [place] [address] Performed By: #### 2 4321-2, , 2776-11 ####V[facility] LABORATORYCLIA [id number] [place] [address] [place] Chloride [Moles/Vol] 96 mmol/L Low 98-107 [facility] Comment on above: Order Comment: Speci men Type: BLOOD SPECIMENOrdering Facility: [facility] Address: [address] [place] [address] Performed By: #### 2 4321-2, , 2776-11 ####V[facility] LABORATORYCLIA [id number] [place] [address] [place] CO2 [Moles/Vol] 25 mmol/L Normal 22-30 [facility] Comment on above: Order Comment: Speci men Type: BLOOD SPECIMENOrdering Facility: [facility] Address: [address] [place] [address] Performed By: #### 2 4321-2, , 2776-11 ####[facility] LABORATORYCLIA [id number] [place] [address] [place] Creatinine [Mass/Vol] 0.80 mg/dL Normal 0.58-0.96 [facility] Comment on above: Order Comment: Speci men Type: BLOOD SPECIMENOrdering Facility: [facility] Address: [address] [place] [address] Performed By: #### 2 4321-2, , 2776-11 ####[facility] LABORATORYCLIA [id number] [place] [address] [place] Creatinine and Glomerular filtration rate.predicted panel (S/P/Bld) 71 mL/min/1.73m??? Normal >=60 [facility] Comment on above: Order Comment: Speci men Type: BLOOD SPECIMENOrdering Facility: [facility] Address: [address] [place] [address] Result Comment: Hilda mated Glomerular Filtration Rate [...] Performed By: #### 2 4321-2, , 2776-11 ####[facility] LABORATORYCLIA [id number] [place] [address] [place] Glucose [Mass/Vol] 149 mg/dL High 74-99 [facility] Comment on above: Order Comment: Fan meade Type: BLOOD SPECIMENOrdering Facility: [facility] Address: [address] [place] [address] Result Comment: The [place] Diabetes Association (ADA) provides guidance for cutoff [...] Standards of Medical Care in Diabetes 2016, [place] Diabetes Association. Diabetes Care. 2016.39(Suppl 1). Performed By: #### 2 4321-2, , 2776-11 ####[facility] LABORATORYCLIA [id number] [place] [address] [place] Potassium [Moles/Vol] 4.6 mmol/L Normal 3.7-5.1 [facility] Comment on above: Order Comment: Fan [place]ade Type: BLOOD SPECIMENOrdering Facility: [facility] Address: [address] [place] [address] Performed By: #### 2 4321-2, , 2776-11 ####[facility] LABORATORYCLIA [id number] [place] [address] [place] Sodium [Moles/Vol] 135 mmol/L Low 136-144 [facility] Comment on above: Order Comment: Speci men Type: BLOOD SPECIMENOrdering Facility: [facility] Address: [address] [place] [address] Performed By: #### 2 4321-2, , 2776-11 ####[facility] LABORATORYCLIA [id number] [place] [address] [place] Urea nitrogen [Mass/Vol] 28 mg/dL High 7-21 [facility] Comment on above: Order Comment: Speci men Type: BLOOD SPECIMENOrdering Facility: [facility] Address: [address] [place] [address] Performed By: #### 2 4321-2, , 2776-11 ####[facility] LABORATORYCLIA [id number] [place], [place] [id number] [place] [address] [place] CASE MANAGEMon 11-28-2024 CASE MANAGEM Normal [facility] CBC W Auto Differential pane l (Bld)on 11-28-2024 Basophils (Bld) [#/Vol] 0.05 10*3/uL Normal <0.11 [facility] Comment on above: Order Comment: Speci men Type: BLOOD SPECIMENOrdering Facility: [facility] Address: [address] [place] [address] Performed By: #### 5 7021-8 ####[facility] LABORATORYCLIA [id number] [place] [id number] [place] Basophils/100 WBC (Bld) 0.5 % Normal [facility] Comment on above: Order Comment: Speci men Type: BLOOD SPECIMENOrdering Facility: [facility] Address: [address] [place] [address] Performed By: #### 5 7021-8 ####[facility] LABORATORYCLIA [id number] [place] [id number] [place] Differential cell count method Nom (Bld) Auto Normal [facility] Comment on above: Order Comment: Speci men Type: BLOOD SPECIMENOrdering Facility: [facility] Address: [address] [place] [address] Performed By: #### 5 7021-8 ####[facility] LABORATORYCLIA [id number] [address] [place] Eosinophils (Bld) [#/Vol] 0.43 10*3/uL Normal <0.46 [facility] Comment on above: Order Comment: Speci men Type: BLOOD SPECIMENOrdering Facility: [facility] Address: [address] [place] [address] Performed By: #### 5 7021-8 ####[facility] LABORATORYCLIA [id number] [address] Eosinophils/100 WBC (Bld) 3.9 % Normal [facility] Comment on above: Order Comment: Speci men Type: BLOOD SPECIMENOrdering Facility: [facility] Address: [address] [place] [address] Performed By: #### 5 7021-8 ####[facility] LABORATORYCLIA [id number] [address] Erythrocyte distribution width (RBC) [Ratio] 15.3 % High 11.5-15.0 [facility] Comment on above: Order Comment: Speci men Type: BLOOD SPECIMENOrdering Facility: [facility] Address: [address] [place] [address] Performed By: #### 5 7021-8 ####[facility] LABORATORYCLIA [id number] [address] Hematocrit (Bld) [Volume fraction] 32.2 % Low 36.0-46.0 [facility] Comment on above: Order Comment: Speci men Type: BLOOD SPECIMENOrdering Facility: [facility] Address: [address] [place] [address] Performed By: #### 5 7021-8 ####[facility] LABORATORYCLIA [id number] [address] [place] Hemoglobin (Bld) [Mass/Vol] 10.4 g/dL Low 11.5-15.5 [facility] Comment on above: Order Comment: Speci men Type: BLOOD SPECIMENOrdering Facility: [facility] Address: [address] [place] [address] Performed By: #### 5 7021-8 ####[facility] LABORATORYCLIA [id number] [place] [address] [place] Immature granulocytes (Bld) [#/Vol] 0.17 10*3/uL High <0.10 [facility] Comment on above: Order Comment: Speci men Type: BLOOD SPECIMENOrdering Facility: [facility] Address: [address] [place] [address] Performed By: #### 5 7021-8 ####[facility] LABORATORYCLIA [id number] [address] Immature granulocytes/100 WBC (Bld) 1.6 % Normal [facility] Comment on above: Order Comment: Speci men Type: BLOOD SPECIMENOrdering Facility: [facility] Address: [address] [place] [address] Performed By: #### 5 7021-8 ####[facility] LABORATORYCLIA [id number] [address] [place] Lymphocytes (Bld) [#/Vol] 0.95 10*3/uL Low 1.00-4.00 [facility] Comment on above: Order Comment: Speci men Type: BLOOD SPECIMENOrdering Facility: [facility] [facility] Address: [address] [place] [address] Performed By: #### 5 7021-8 ####[facility] LABORATORYCLIA [id number] [address] Lymphocytes/100 WBC (Bld) 8.7 % Normal [facility] Comment on above: Order Comment: Speci men Type: BLOOD SPECIMENOrdering Facility: [facility] Address: [address] [place] [address] Performed By: #### 5 7021-8 ####[facility] LABORATORYCLIA [id number] [place] [address] [place] MCH (RBC) [Entitic mass] 27.7 pg Normal 26.0-34.0 [facility] Comment on above: Order Comment: Speci men Type: BLOOD SPECIMENOrdering Facility: [facility] Address: [address] [place] [address] Performed By: #### 5 7021-8 ####[facility] LABORATORYCLIA [id number] [place] [id number] [place] MCHC (RBC) [Mass/Vol] 32.3 g/dL Normal 30.5-36.0 [facility] Comment on above: Order Comment: Speci men Type: BLOOD SPECIMENOrdering Facility: [facility] Address: [address] [place] [address] Performed By: #### 5 7021-8 ####[facility] LABORATORYCLIA [id number] [place] [address] [place] MCV (RBC) [Entitic vol] 85.6 fL Normal 80.0-100.0 [facility] Comment on above: Order Comment: Speci men Type: BLOOD SPECIMENOrdering Facility: [facility] Address: [address] [place] [address] Performed By: #### 5 7021-8 ####[facility] LABORATORYCLIA [id number] [place] [address] [place] Monocytes (Bld) [#/Vol] 0.89 10*3/uL High <0.87 [facility] Comment on above: Order Comment: Speci men Type: BLOOD SPECIMENOrdering Facility: [facility] Address: [address] [place] [address] Performed By: #### 5 7021-8 ####[facility] LABORATORYCLIA [id number] [address] Monocytes/100 WBC (Bld) 8.1 % Normal [facility] Comment on above: Order Comment: Speci men Type: BLOOD SPECIMENOrdering Facility: [facility] Address: [address] [place] [address] Performed By: #### 5 7021-8 ####[facility] LABORATORYCLIA [id number] [place] [address] [place] Neutrophils (Bld) [#/Vol] 8.45 10*3/uL High 1.45-7.50 [facility] Comment on above: Order Comment: Speci men Type: BLOOD SPECIMENOrdering Facility: [facility] Address: [address] [place] [address] Performed By: #### 5 7021-8 ####[facility] LABORATORYCLIA [id number] [address] Neutrophils/100 WBC (Bld) 77.2 % Normal [facility] Comment on above: Order Comment: Speci men Type: BLOOD SPECIMENOrdering Facility: [facility] Address: [address] [place] [address] Performed By: #### 5 7021-8 ####[facility] LABORATORYCLIA [id number] [place] [address] [place] Nucleated RBC (Bld) [#/Vol] 10*3/uL Normal <0.01 [facility] Comment on above: Order Comment: Speci men Type: BLOOD SPECIMENOrdering Facility: [facility] Address: [address] [place] [address] Performed By: #### 5 7021-8 ####[facility] LABORATORYCLIA [id number] [address] STATES [facility] Nucleated RBC/100 WBC (Bld) [Ratio] 0.0 /100 WBC Normal [facility] Comment on above: Order Comment: Speci men Type: BLOOD SPECIMENOrdering Facility: [facility] Address: [address] [place] [address] Performed By: #### 5 7021-8 ####[facility] LABORATORYCLIA [id number] [address] [place] Platelet mean volume (Bld) [Entitic vol] 9.0 fL Normal 9.0-12.7 [facility] Comment on above: Order Comment: Speci men Type: BLOOD SPECIMENOrdering Facility: [facility] Address: [address] [place] [address] Performed By: #### 5 7021-8 ####V[facility] LABORATORYCLIA [id number] [address] [place] Platelets (Bld) [#/Vol] 413 10*3/uL High 150-400 [facility] Comment on above: Order Comment: Speci men Type: BLOOD SPECIMENOrdering Facility: [facility] Address: [address] [place] [address] Performed By: #### 5 7021-8 ####[facility] LABORATORYCLIA [id number] [place] [address] [place] RBC (Bld) [#/Vol] 3.76 10*6/uL Low 3.90-5.20 [facility] Comment on above: Order Comment: Speci men Type: BLOOD SPECIMENOrdering Facility: [facility] Address: [address] [place] [address] Performed By: #### 5 7021-8 ####[facility] LABORATORYCLIA [id number] [place] [address] [place] WBC (Bld) [#/Vol] 10.94 10*3/uL Normal 3.70-11.00 [facility] Comment on above: Order Comment: Speci men Type: BLOOD SPECIMENOrdering Facility: [facility] Address: [address] [place] [address] Performed By: #### 5 7021-8 ####VILLAR[facility] LABORATORYCLIA [id number] [address] [place] CONSULT PROGon 11-28-2024 CONSULT PROG Normal [facility] CONSULT PROG Normal [facility] Magnesium SerPl-mCncon 11-28 Magnesium [Mass/Vol] 1.9 mg/dL Normal 1.7-2.3 [facility] Comment on above: Order Comment: Speci men Type: BLOOD SPECIMENOrdering Facility: [facility] Address: [address] [place] [address] Performed By: #### 2 4321-2, 97297-1, 2777-1 ####VILL[facility] LABORATORYCLIA [id number] [address] [place] Phosphate SerPl-mCncon 11-28 Phosphate [Mass/Vol] 3.4 mg/dL Normal 2.7-4.8 [facility] Comment on above: Order Comment: Speci men Type: BLOOD SPECIMENOrdering Facility: [facility] Address: [address] [place] [address] Performed By: #### 2 4321-2, , 2776-11 ####[facility]ORATORYCLIA [id number] [place] [address] [place] THERAPY NTon 11-28-2024 THERAPY NT Normal [facility] THERAPY NT Normal [facility] ALLIED HEALTHon 11-27-2024 ALLIED HEALTH [facility] ANES POSTPROC EVALon 025 ANES POSTPROC EVAL Normal [facility] ANES PRE-OPon 11-27-2024 ANES PRE-OP Normal [facility] Bacteria Spec Anaerobe Culto n 11-27-2024 Bacteria identified Anaer cx Nom (Unsp spec) Negative Normal [facility] Comment on above: Performed By: #### 6 35-3, 6462-6 ####[facility] LABCLIA [id number] [place] [address] [place] Bacteria Wnd Culton 11-27-19 25 Bacteria identified Cx Nom (Wound) Abnormal [facility] Comment on above: Performed By: #### 6 35-3, 6462-6 ####[facility] LABCLIA [id number] [place] [address] [place] Basic metabolic 2000 panelon 11-27-2024 Anion gap [Moles/Vol] 13 mmol/L Normal -15 [facility] Comment on above: Order Comment: Speci men Type: BLOOD SPECIMENOrdering Facility: [facility] Address: [address] [place] [address] Performed By: #### 2 4321-2, , 2776-11 ####[facility]ORATORYCLIA [id number] [place] [address] [place] Calcium [Mass/Vol] 9.0 mg/dL Normal 8.5-10.2 [facility] Comment on above: Order Comment: Speci men Type: BLOOD SPECIMENOrdering Facility: [facility] Address: [address] [place] [address] Performed By: #### 2 4321-2, , 2776-11 ####[facility] LABORATORYCLIA [id number] [place] [address] [place] Chloride [Moles/Vol] 94 mmol/L Low 98-107 [facility] Comment on above: Order Comment: Fan meade Type: BLOOD SPECIMENOrdering Facility: [facility] Address: [address] [place] [address] Performed By: #### 2 4321-2, , 2776-11 ####[facility]ORATORYCLIA [id number] [place] [id number] [place] CO2 [Moles/Vol] 25 mmol/L Normal 22-30 [facility] Comment on above: Order Comment: Fan meade Type: BLOOD SPECIMENOrdering Facility: [facility] Address: [address] [place] [address] Performed By: #### 2 4321-2, , 2776-11 ####[facility]ORATORYCLIA [id number] [address] STATES [facility] Creatinine [Mass/Vol] 0.76 mg/dL Normal 0.58-0.96 [facility] Comment on above: Order Comment: Fan meade Type: BLOOD SPECIMENOrdering Facility: [facility] Address: [address] [place] [address] Performed By: #### 2 4321-2, , 2776-11 ####[facility]ORATORYCLIA [id number] [address] Creatinine and Glomerular filtration rate.predicted panel (S/P/Bld) 75 mL/min/1.73m??? Normal >=60 [facility] Comment on above: Order Comment: Fan meade Type: BLOOD SPECIMENOrdering Facility: [facility] Address: [address] [place] [address] Result Comment: Hilda mated Glomerular Filtration Rate [...] #### 2 4321-2, , 2776-11 ####[facility] LABORATORYCLIA [id number] [place] [address] [place] Glucose [Mass/Vol] 251 mg/dL High 74-99 [facility] Comment on above: Order Comment: Fan meade Type: BLOOD SPECIMENOrdering Facility: [facility] Address: [address] [place] [address] Result Comment: [place] Diabetes Association (ADA) provides guidance for cutoff [...] Standards of Medical Care in Diabetes 2016, [place] Diabetes Association. Diabetes Care. 2016.39(Suppl 1). Performed By: #### 2 4321-2, , 2776-11 ####[facility] LABORATORYCLIA [id number] [place] [id number] [place] Potassium [Moles/Vol] 3.6 mmol/L Low 3.7-5.1 [facility] Comment on above: Order Comment: Fan meade Type: BLOOD SPECIMENOrdering Facility: [facility] Address: [address] [place] [address] Performed By: #### 2 4321-2, , 2776-11 ####[facility] LABORATORYCLIA [id number] [place] [address] [place] Sodium [Moles/Vol] 132 mmol/L Low 136-144 [facility] Comment on above: Order Comment: Fan meade Type: BLOOD SPECIMENOrdering Facility: [facility] Address: [address] [place], [place] [address] Performed By: #### 2 4321-2, , 2776-11 ####[facility] LABORATORYCLIA [id number] [place] [address] [place] Urea nitrogen [Mass/Vol] 29 mg/dL High 7-21 [facility] Comment on above: Order Comment: Speci men Type: BLOOD SPECIMENOrdering Facility: [facility] Address: [address] [place] [address] Performed By: #### 2 4321-2, 74558-2, 2777-1 ####[facility]ORATORYCLIA [id number] [address] [place] CASE MANAGEMon 11-27-2024 CASE MANAGEM Normal [facility] CBC panel Auto (Bld)on 11-27 Erythrocyte distribution width (RBC) [Ratio] 15.1 % High 11.5-15.0 [facility] Comment on above: Order Comment: Speci men Type: BLOOD SPECIMENOrdering Facility: [facility] Address: [address] [place] [address] Performed By: #### 5 8410-2 ####[facility] LABORATORYCLIA [id number] [address] [place] Hematocrit (Bld) [Volume fraction] 29.3 % Low 36.0-46.0 [facility] Comment on above: Order Comment: Speci men Type: BLOOD SPECIMENOrdering Facility: [facility] Address: [address] [place] [address] Performed By: #### 5 8410-2 ####[facility] LABORATORYCLIA [id number] [place] [address] [place] Hemoglobin (Bld) [Mass/Vol] 9.9 g/dL Low 11.5-15.5 [facility] Comment on above: Order Comment: Speci men Type: BLOOD SPECIMENOrdering Facility: [facility] Address: [address] [place] [address] Performed By: #### 5 8410-2 ####[facility] LABORATORYCLIA [id number] [place] [address] [place] MCH (RBC) [Entitic mass] 28.2 pg Normal 26.0-34.0 [facility] Comment on above: Order Comment: Speci men Type: BLOOD SPECIMENOrdering Facility: [facility] Address: [address] [place] [address] Performed By: #### 5 8410-2 ####[facility] LABORATORYCLIA [id number] [address] MCHC (RBC) [Mass/Vol] 33.8 g/dL Normal 30.5-36.0 [facility] Comment on above: Order Comment: Speci men Type: BLOOD SPECIMENOrdering Facility: [facility] Address: [address] [place] [address] Performed By: #### 5 8410-2 ####[facility] LABORATORYCLIA [id number] [address] [place] MCV (RBC) [Entitic vol] 83.5 fL Normal 80.0-100.0 [facility] Comment on above: Order Comment: Speci men Type: BLOOD SPECIMENOrdering Facility: [facility] Address: [address] [place] [address] Performed By: #### 5 8410-2 ####[facility] LABORATORYCLIA [id number] [address] Nucleated RBC (Bld) [#/Vol] 10*3/uL Normal <0.01 [facility] Comment on above: Order Comment: Speci men Type: BLOOD SPECIMENOrdering Facility: [facility] Address: [address] [place] [address] Performed By: #### 5 8410-2 ####[facility] LABORATORYCLIA [id number] [address] [place] Platelet mean volume (Bld) [Entitic vol] 9.1 fL Normal 9.0-12.7 [facility] Comment on above: Order Comment: Speci men Type: BLOOD SPECIMENOrdering Facility: [facility] Address: [address] [place] [address] Performed By: #### 5 8410-2 ####[facility] LABORATORYCLIA [id number] [address] [place] Platelets (Bld) [#/Vol] 383 10*3/uL Normal 150-400 [facility] Comment on above: Order Comment: Speci men Type: BLOOD SPECIMENOrdering Facility: [facility] Address: [address] [place], [place] [address] Performed By: #### 5 8410-2 ####[facility]ORATORYCLIA [id number] [address] [place] RBC (Bld) [#/Vol] 3.51 10*6/uL Low 3.90-5.20 [facility] Comment on above: Order Comment: Speci men Type: BLOOD SPECIMENOrdering Facility: [facility] Address: [address] [place] [address] Performed By: #### 5 8410-2 ####[facility]ORATORYCLIA [id number] [address] [place] WBC (Bld) [#/Vol] 11.65 10*3/uL High 3.70-11.00 [facility] Comment on above: Order Comment: Speci men Type: BLOOD SPECIMENOrdering Facility: [facility] Address: [address] [place] [address] Performed By: #### 5 8410-2 ####[facility]ORATORYCLIA [id number] [address] CONSULT PROGon 11-27-2024 CONSULT PROG Normal [facility] Magnesium [facility]27 Magnesium [Mass/Vol] 1.6 mg/dL Low 1.7-2.3 [facility] Comment on above: Order Comment: Speci men Type: BLOOD SPECIMENOrdering Facility: [facility] Address: [address] [place] [address] Performed By: #### 2 4321-2, 76354-6, 2777-1 ####[facility]ORATORYCLIA [id number] [address] [place] NUTRITIONon 11-27-2024 NUTRITION Normal [facility] OPERATIVE NOon 11-27-2024 OPERATIVE NO Normal [facility] Phosphate SerPl-ncon 11-27 Phosphate [Mass/Vol] 3.7 mg/dL Normal 2.7-4.8 [facility] Comment on above: Order Comment: Speci men Type: BLOOD SPECIMENOrdering Facility: [facility] Address: [address] [place] [address] Performed By: #### 2 4321-2, , 2776-11 ####[facility] LABORATORYCLIA [id number] [place] [address] [place] THERAPY NTon 11-27-2024 THERAPY NT Normal [facility] US ABD RIGHT UPPER QUADRANTo n 11-27-2024 US ABD RIGHT UPPER QUADRANT Normal [facility] US ABD SPLEEN -NBon 11-27-19 US ABD SPLEEN -NB Normal [facility] Basic metabolic 2000 panelon 11-26-2024 Anion gap [Moles/Vol] 10 mmol/L Normal 8-15 [facility] Comment on above: Order Comment: Speci men Type: BLOOD SPECIMENOrdering Facility: [facility] Address: [address] [place] [address] Performed By: #### 2 4321-2, , 2776-11 ####[facility] LABORATORYCLIA [id number] [place] [address] [place] Calcium [Mass/Vol] 9.2 mg/dL Normal 8.5-10.2 [facility] Comment on above: Order Comment: Speci men Type: BLOOD SPECIMENOrdering Facility: [facility] Address: [address] [place] [address] Performed By: #### 2 4321-2, , 2776-11 ####[facility] LABORATORYCLIA [id number] [place] [id number] [place] Chloride [Moles/Vol] 94 mmol/L Low 98-107 [facility] Comment on above: Order Comment: Speci men Type: BLOOD SPECIMENOrdering Facility: [facility] Address: [address] [place] [address] Performed By: #### 2 4321-2, , 2776-11 ####[facility] LABORATORYCLIA [id number] [place] [id number] [place] CO2 [Moles/Vol] 28 mmol/L Normal 22-30 [facility] Comment on above: Order Comment: Fan halina Type: BLOOD SPECIMENOrdering Facility: [facility] Address: [address] [place] [id number] Performed By: #### 2 4321-2, , 2776-11 ####[facility] LABORATORYCLIA [id number] [place] [address] [place] Creatinine [Mass/Vol] 0.98 mg/dL High 0.58-0.96 [facility] Comment on above: Order Comment: Specleroy men Type: BLOOD SPECIMENOrdering Facility: [facility] Address: [address] [place] [address] Performed By: #### 2 4321-2, , 2776-11 ####[facility]ORATORYCLIA [id number] [address] OF [facility] Creatinine and Glomerular filtration rate.predicted panel (S/P/Bld) 56 mL/min/1.73m??? Low >=60 [facility] Comment on above: Order Comment: Fan meade Type: BLOOD SPECIMENOrdering Facility: [facility] Address: [address] [place] [address] Result Comment: Hilda mated Glomerular Filtration Rate [...] Performed By: #### 2 4321-2, , 2776-11 ####[facility]ORATORYCLIA [id number] [place] [address] [place] Glucose [Mass/Vol] 244 mg/dL High 74-99 [facility] Comment on above: Order Comment: Fan halina Type: BLOOD SPECIMENOrdering Facility: [facility] Address: [address] [place] [address] Result Comment: The [place] Diabetes Association (ADA) provides guidance for cutoff [...] Standards of Medical Care in Diabetes 2016, [place] Diabetes Association. Diabetes Care. 2016.39(Suppl 1). Performed By: #### 2 4321-2, , 2776- ####[facility] LABORATORYCLIA [id number] [place] [address] [place] Potassium [Moles/Vol] 4.4 mmol/L Normal 3.7-5.1 [facility] Comment on above: Order Comment: Fan meade Type: BLOOD SPECIMENOrdering Facility: [facility] Address: [address] [place] [address] Performed By: #### 2 4321-2, , 2776-11 ####[facility] LABORATORYCLIA [id number] [place] [address] [place] Sodium [Moles/Vol] 132 mmol/L Low 136-144 [facility] Comment on above: Order Comment: Fan meade Type: BLOOD SPECIMENOrdering Facility: [facility] Address: [address] [place] [address] Performed By: #### 2 4321-2, , 2776-11 ####[facility] LABORATORYCLIA [id number] [place] [id number] [place] Urea nitrogen [Mass/Vol] 37 mg/dL High 7-21 [facility] Comment on above: Order Comment: Fan meade Type: BLOOD SPECIMENOrdering Facility: [facility] Address: [address] [place] [address] Performed By: #### 2 4321-2, , 2776- ####[facility] LABORATORYCLIA [id number] [place] [id number] [place] CASE MANAGEMon 11-26-2024 CASE MANAGEM Normal [facility] CBC W Auto Differential pane l (Bld)on 11-26-2024 Basophils (Bld) [#/Vol] 0.04 10*3/uL Normal <0.11 [facility] Comment on above: Order Comment: Speci men Type: BLOOD SPECIMENOrdering Facility: [facility] Address: [address] [place] [address] Performed By: #### 5 7021-8 ####[facility] LABORATORYCLIA [id number] [place] [address] [place] Basophils/100 WBC (Bld) 0.4 % Normal [facility] Comment on above: Order Comment: Speci men Type: BLOOD SPECIMENOrdering Facility: [facility] Address: [address] [place] [address] Performed By: #### 5 7021-8 ####[facility] LABORATORYCLIA [id number] [place] [address] [place] Differential cell count method Nom (Bld) Auto Normal [facility] Comment on above: Order Comment: Speci men Type: BLOOD SPECIMENOrdering Facility: [facility] Address: [address] [place] [address] Performed By: #### 5 7021-8 ####[facility] LABORATORYCLIA [id number] [place] [address] [place] Eosinophils (Bld) [#/Vol] 0.41 10*3/uL Normal <0.46 [facility] Comment on above: Order Comment: Speci men Type: BLOOD SPECIMENOrdering Facility: [facility] Address: [address] [place] [address] Performed By: #### 5 7021-8 ####[facility] LABORATORYCLIA [id number] [place] [address] [place] Eosinophils/100 WBC (Bld) 3.9 % Normal [facility] Comment on above: Order Comment: Speci men Type: BLOOD SPECIMENOrdering Facility: [facility] Address: [address] [place] [address] Performed By: #### 5 7021-8 ####[facility] LABORATORYCLIA [id number] [place] [address] [place] Erythrocyte distribution width (RBC) [Ratio] 14.9 % Normal 11.5-15.0 [facility] Comment on above: Order Comment: Speci men Type: BLOOD SPECIMENOrdering Facility: [facility] Address: [address] [place] [address] Performed By: #### 5 7021-8 ####[facility] LABORATORYCLIA [id number] [place] [address] [place] Hematocrit (Bld) [Volume fraction] 30.0 % Low 36.0-46.0 [facility] Comment on above: Order Comment: Speci men Type: BLOOD SPECIMENOrdering Facility: [facility] Address: [address] [place] [address] Performed By: #### 5 7021-8 ####[facility] LABORATORYCLIA [id number] [place] [address] [place] Hemoglobin (Bld) [Mass/Vol] 10.1 g/dL Low 11.5-15.5 [facility] Comment on above: Order Comment: Speci men Type: BLOOD SPECIMENOrdering Facility: [facility] Address: [address] [place] [address] Performed By: #### 5 7021-8 ####VILLARREAL LABORATORYCLIA [id number] [address] [place] Immature granulocytes (Bld) [#/Vol] 0.09 10*3/uL Normal <0.10 [facility] Comment on above: Order Comment: Speci men Type: BLOOD SPECIMENOrdering Facility: [facility] Address: [address] [place] [address] Performed By: #### 5 7021-8 ####VILLARREAL LABORATORYCLIA [id number] [address] [place] Immature granulocytes/100 WBC (Bld) 0.9 % Normal [facility] [place] Comment on above: Order Comment: Speci men Type: BLOOD SPECIMENOrdering Facility: [facility] Address: [address] [place] [address] Performed By: #### 5 7021-8 ####VILLARREAL LABORATORYCLIA [id number] [address] [place] Lymphocytes (Bld) [#/Vol] 1.04 10*3/uL Normal 1.00-4.00 [facility] [place] Comment on above: Order Comment: Speci men Type: BLOOD SPECIMENOrdering Facility: [facility] Address: [address] [place] [address] Performed By: #### 5 7021-8 ####VILLARREAL LABORATORYCLIA [id number] [address] Lymphocytes/100 WBC (Bld) 9.9 % Normal [facility] [place] Comment on above: Order Comment: Speci men Type: BLOOD SPECIMENOrdering Facility: [facility] Address: [address] [place] [address] Performed By: #### 5 7021-8 ####VILLARREAL LABORATORYCLIA [id number] [address] STATES [facility] MCH (RBC) [Entitic mass] 28.1 pg Normal 26.0-34.0 [facility] Comment on above: Order Comment: Speci men Type: BLOOD SPECIMENOrdering Facility: [facility] Address: [address] [place] [address] Performed By: #### 5 7021-8 ####VILLARREAL LABORATORYCLIA [id number] [address] MCHC (RBC) [Mass/Vol] 33.7 g/dL Normal 30.5-36.0 [facility] Comment on above: Order Comment: Speci men Type: BLOOD SPECIMENOrdering Facility: [facility] Address: [address] [place] [address] Performed By: #### 5 7021-8 ####VILLARREAL LABORATORYCLIA [id number] [address] MCV (RBC) [Entitic vol] 83.3 fL Normal 80.0-100.0 [facility] Comment on above: Order Comment: Speci men Type: BLOOD SPECIMENOrdering Facility: [facility] Address: [address] [place] [address] Performed By: #### 5 7021-8 ####VILLARREAL LABORATORYCLIA [id number] [place] [address] [place] Monocytes (Bld) [#/Vol] 0.93 10*3/uL High <0.87 [facility] [place] Comment on above: Order Comment: Speci men Type: BLOOD SPECIMENOrdering Facility: [facility] Address: [address] [place] [address] Performed By: #### 5 7021-8 ####VILLARREAL LABORATORYCLIA [id number] [place] [address] [place] Monocytes/100 WBC (Bld) 8.9 % Normal [facility] Comment on above: Order Comment: Speci men Type: BLOOD SPECIMENOrdering Facility: [facility] Address: [address] [place] [address] Performed By: #### 5 7021-8 ####VILLARREAL LABORATORYCLIA [id number] [place] [address] [place] Neutrophils (Bld) [#/Vol] 7.97 10*3/uL High 1.45-7.50 [facility] Comment on above: Order Comment: Speci men Type: BLOOD SPECIMENOrdering Facility: [facility] Address: [address] [place] [address] Performed By: #### 5 7021-8 ####VILLARREAL LABORATORYCLIA [id number] [address] [place] Neutrophils/100 WBC (Bld) 76.0 % Normal [facility] [place] Comment on above: Order Comment: Speci men Type: BLOOD SPECIMENOrdering Facility: [facility] Address: [address] [place] [address] Performed By: #### 5 7021-8 ####VILLARREAL LABORATORYCLIA [id number] [place] [address] [place] Nucleated RBC (Bld) [#/Vol] 10*3/uL Normal <0.01 [facility] Comment on above: Order Comment: Speci men Type: BLOOD SPECIMENOrdering Facility: [facility] Address: [address] [place] [address] Performed By: #### 5 7021-8 ####VILLARREAL LABORATORYCLIA [id number] [address] [place] Nucleated RBC/100 WBC (Bld) [Ratio] 0.0 /100 WBC Normal [facility] Comment on above: Order Comment: Speci men Type: BLOOD SPECIMENOrdering Facility: [facility] Address: [address] [place] [address] Performed By: #### 5 7021-8 ####VILLARREAL LABORATORYCLIA [id number] [place] [address] [place] Platelet mean volume (Bld) [Entitic vol] 9.0 fL Normal 9.0-12.7 [facility] Comment on above: Order Comment: Speci men Type: BLOOD SPECIMENOrdering Facility: [facility] Address: [address] [place] [address] Performed By: #### 5 7021-8 ####VILLARREAL LABORATORYCLIA [id number] [address] [place] Platelets (Bld) [#/Vol] 381 10*3/uL Normal 150-400 [facility] Comment on above: Order Comment: Speci men Type: BLOOD SPECIMENOrdering Facility: [facility] Address: [address] [place] [address] Performed By: #### 5 7021-8 ####VILLARREAL LABORATORYCLIA [id number] [address] [place] RBC (Bld) [#/Vol] 3.60 10*6/uL Low 3.90-5.20 [facility] Comment on above: Order Comment: Speci men Type: BLOOD SPECIMENOrdering Facility: [facility] Address: [address] [place] [address] Performed By: #### 5 7021-8 ####VILLARREAL LABORATORYCLIA [id number] [address] WBC (Bld) [#/Vol] 10.48 10*3/uL Normal 3.70-11.00 [facility] Comment on above: Order Comment: Speci men Type: BLOOD SPECIMENOrdering Facility: [facility] Address: [address], [place] [address] Performed By: #### 5 7021-8 ####CHERELLE LABORATORYCLIA [id number] [place] [address] [facility] CNPKelsie 11-26-2024 CNPN Telephone (HEMAST) YUSUF MEDINA ([id number]) 1935 [address] Date Time Provider Department 11/26/24 GRUPO MENDEZ During your visit today, we recorded the following information about you: Sue Urbina 11/26/2024 9:54 AM Signed 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 When she is discharged she will be sent to a rehab and will not be able to make appts. Any time soon. Please advise for further requirements. Grupo Mendez MD 11/26/2024 5:[address] Mendez reviewed labs from [facility]. Dr. Mendez recommended for patient to be [...] this patient by: CAREGIVER José Miguel Swanson [facility] Problem List As Of Date 11/26/2024 [...] (capsule) sprain (more content not included)... Normal [facility]PEL WO IVCONon 2024 CT [facility] Ser[facility]-cCncon 11-26-19 Lipase [Catalytic activity/Vol] 22 U/L Normal 16-61 [facility] Comment on above: Order Comment: Speci men Type: BLOOD SPECIMENOrdering Facility: [facility] Address: [address] [place] [address] Performed By: #### 3 040-3 ####[facility] LABORATORYCLIA [id number] [address] STATES [facility] Magnesium SerPl-mCncon 11-26 Magnesium [Mass/Vol] 2.0 mg/dL Normal 1.7-2.3 [facility] Comment on above: Order Comment: Speci men Type: BLOOD SPECIMENOrdering Facility: [facility] Address: [address] [place] [address] Performed By: #### 2 4321-2, 83210-1, 2777-1 ####[facility] LABORATORYCLIA [id number] [place] [id number] [facility] [place] NURSING PR[facility]on 11-26[facility]20[facility] Phosphate SerPl-mCncon 11-26 Phosphate [Mass/Vol] 3.0 mg/dL Normal 2.7-4.8 [facility] Comment on above: Order Comment: Speci men Type: BLOOD SPECIMENOrdering Facility: [facility] Address: [address] [place] [id number] Performed By: #### 2 4321-2, 84723-0, 2777-1 ####VILLARREAL LABORATORYCLIA [id number] [place] [address] [place] Basic metabolic 2000 panelon 11-25-2024 Anion gap [Moles/Vol] 12 mmol/L Normal 8-15 [facility] Comment on above: Order Comment: Speci men Type: BLOOD SPECIMENOrdering Facility: [facility] Address: [address] [place] [address] Performed By: #### 2 4321-2, ####VILLARREAL LABORATORYCLIA [id number] [place] [address] [place] Calcium [Mass/Vol] 8.9 mg/dL Normal 8.5-10.2 [facility] Comment on above: Order Comment: Speci men Type: BLOOD SPECIMENOrdering Facility: [facility] Address: [facility] [place] [address] Performed By: #### 2 432-2, ####VILLARREAL LABORATORYCLIA [id number] [place] [id number] [place] Chloride [Moles/Vol] 94 mmol/L Low 98-107 [facility] Comment on above: Order Comment: Speci men Type: BLOOD SPECIMENOrdering Facility: [facility] Address: [facility] [place] [address] Performed By: #### 2 4320-2, ####VILLARREAL LABORATORYCLIA [id number] [place] [id number] [place] CO2 [Moles/Vol] 24 mmol/L Normal 22-30 [facility] Comment on above: Order Comment: Speci men Type: BLOOD SPECIMENOrdering Facility: [facility] Address: [facility] [place] [address] Performed By: #### 2 4321-2, ####VILLARREAL LABORATORYCLIA [id number] [place] [address] [place] Creatinine [Mass/Vol] 0.79 mg/dL Normal 0.58-0.96 [facility] Comment on above: Order Comment: Fan meade Type: BLOOD SPECIMENOrdering Facility: [facility] Address: [address] [place] [address] Performed By: #### 2 4321-2, ####VILLARREAL LABORATORYCLIA [id number] [place] [address] [place] Creatinine and Glomerular filtration rate.predicted panel (S/P/Bld) 72 mL/min/1.73m??? Normal >=60 [facility] Comment on above: Order Comment: Fan meade Type: BLOOD SPECIMENOrdering Facility: [facility] Address: [address] [place] [address] Result Comment: Hilda mated Glomerular Filtration Rate [...] Performed By: #### 2 4321-2, ####VILLARREAL LABORATORYCLIA [id number] [place] [id number] [place] Glucose [Mass/Vol] 251 mg/dL High 74-99 [facility] Comment on above: Order Comment: Fan meade Type: BLOOD SPECIMENOrdering Facility: [facility] Address: [address] [place] [address] Result Comment: The [place] Diabetes Association (ADA) provides guidance for cutoff [...] Standards of Medical Care in Diabetes 2016, [place] Diabetes Association. Diabetes Care. 2016.39(Suppl 1). Performed By: #### 2 4321-2, ####VILLARREAL LABORATORYCLIA [id number] [place] [address] [place] Potassium [Moles/Vol] 3.9 mmol/L Normal 3.7-5.1 [facility] Comment on above: Order Comment: Speci men Type: BLOOD SPECIMENOrdering Facility: [facility] Address: [address] [place] [address] Performed By: #### 2 4321-2, ####VILLARREAL LABORATORYCLIA [id number] [place] [address] [place] Sodium [Moles/Vol] 130 mmol/L Low 136-144 [facility] Comment on above: Order Comment: Speci men Type: BLOOD SPECIMENOrdering Facility: [facility] Address: [address] [place] [address] Performed By: #### 2 432-2, ####VILLARREAL LABORATORYCLIA [id number] [place] [address] [place] Urea nitrogen [Mass/Vol] 32 mg/dL High 7-21 [facility] Comment on above: Order Comment: Speci men Type: BLOOD SPECIMENOrdering Facility: [facility] Address: [address] [place] [address] Performed By: #### 2 4321-2, ####VILLARREAL LABORATORYCLIA [id number] [place] [address] [place] CBC W Auto Differential pane l (Bld)on 11-25-2024 Basophils (Bld) [#/Vol] 0.05 10*3/uL Normal <0.11 [facility] Comment on above: Order Comment: Speci men Type: BLOOD SPECIMENOrdering Facility: [facility] Address: [address] [place] [address] Performed By: #### 5 7021-8 ####VILLARREAL LABORATORYCLIA [id number] [address] [place] Basophils/100 WBC (Bld) 0.4 % Normal [facility] Comment on above: Order Comment: Speci men Type: BLOOD SPECIMENOrdering Facility: [facility] Address: [address] [place] [address] Performed By: #### 5 7021-8 ####VILLARREAL LABORATORYCLIA [id number] [address] [place] Differential cell count method Nom (Bld) Auto Normal [facility] Comment on above: Order Comment: Speci men Type: BLOOD SPECIMENOrdering Facility: [facility] Address: [address] [place] [address] Performed By: #### 5 7021-8 ####VILLARREAL LABORATORYCLIA [id number] [place] [address] [place] Eosinophils (Bld) [#/Vol] 0.11 10*3/uL Normal <0.46 [facility] Comment on above: Order Comment: Speci men Type: BLOOD SPECIMENOrdering Facility: [facility] Address: [address] [place] [address] Performed By: #### 5 7021-8 ####VILLARREAL LABORATORYCLIA [id number] [address] [place] Eosinophils/100 WBC (Bld) 0.8 % Normal [facility] Comment on above: Order Comment: Speci men Type: BLOOD SPECIMENOrdering Facility: [facility] Address: [address] [place] [address] Performed By: #### 5 7021-8 ####VILLARREAL LABORATORYCLIA [id number] [address] [place] Erythrocyte distribution width (RBC) [Ratio] 14.9 % Normal 11.5-15.0 [facility] Comment on above: Order Comment: Speci men Type: BLOOD SPECIMENOrdering Facility: [facility] Address: [address] [place] [address] Performed By: #### 5 7021-8 ####VILLARREAL LABORATORYCLIA [id number] [address] [place] Hematocrit (Bld) [Volume fraction] 31.8 % Low 36.0-46.0 [facility] Comment on above: Order Comment: Speci men Type: BLOOD SPECIMENOrdering Facility: [facility] Address: [address] [place] [address] Performed By: #### 5 7021-8 ####VILLARREAL LABORATORYCLIA [id number] [place] [address] [place] Hemoglobin (Bld) [Mass/Vol] 10.5 g/dL Low 11.5-15.5 [facility] Comment on above: Order Comment: Speci men Type: BLOOD SPECIMENOrdering Facility: [facility] Address: [address] [place] [address] Performed By: #### 5 7021-8 ####VILLARREAL LABORATORYCLIA [id number] [place] [address] [place] Immature granulocytes (Bld) [#/Vol] 0.09 10*3/uL Normal <0.10 [facility] Comment on above: Order Comment: Speci men Type: BLOOD SPECIMENOrdering Facility: [facility] Address: [address] [place] [address] Performed By: #### 5 7021-8 ####VILLARREAL LABORATORYCLIA [id number] [place] [address] [place] Immature granulocytes/100 WBC (Bld) 0.6 % Normal [facility] Comment on above: Order Comment: Speci men Type: BLOOD SPECIMENOrdering Facility: [facility] Address: [address] [place] [address] Performed By: #### 5 7021-8 ####VILLARREAL LABORATORYCLIA [id number] [place] [address] [place] Lymphocytes (Bld) [#/Vol] 1.18 10*3/uL Normal 1.00-4.00 [facility] Comment on above: Order Comment: Speci men Type: BLOOD SPECIMENOrdering Facility: [facility] Address: [address] [place] [address] Performed By: #### 5 7021-8 ####VILLARREAL LABORATORYCLIA [id number] [place] [address] [place] Lymphocytes/100 WBC (Bld) 8.5 % Normal [facility] Comment on above: Order Comment: Speci men Type: BLOOD SPECIMENOrdering Facility: [facility] Address: [address] [place] [address] Performed By: #### 5 7021-8 ####VILLARREAL LABORATORYCLIA [id number] [address] [place] MCH (RBC) [Entitic mass] 27.8 pg Normal 26.0-34.0 [facility] Comment on above: Order Comment: Speci men Type: BLOOD SPECIMENOrdering Facility: [facility] Address: [address] [place] [address] Performed By: #### 5 7021-8 ####VILLARREAL LABORATORYCLIA [id number] [address] [place] MCHC (RBC) [Mass/Vol] 33.0 g/dL Normal 30.5-36.0 [facility] Comment on above: Order Comment: Speci men Type: BLOOD SPECIMENOrdering Facility: [facility] Address: [address] [place] [address] Performed By: #### 5 7021-8 ####VILLARREAL LABORATORYCLIA [id number] [address] [place] [facility] MCV (RBC) [Entitic vol] 84.1 fL Normal 80.0-100.0 [facility] Comment on above: Order Comment: Speci men Type: BLOOD SPECIMENOrdering Facility: [facility] Address: [address] [place] [address] Performed By: #### 5 7021-8 ####VILLARREAL LABORATORYCLIA [id number] [address] [place] Monocytes (Bld) [#/Vol] 1.11 10*3/uL High <0.87 [facility] Comment on above: Order Comment: Speci men Type: BLOOD SPECIMENOrdering Facility: [facility] Address: [address] [place] [address] Performed By: #### 5 7021-8 ####VILLARREAL LABORATORYCLIA [id number] [address] Monocytes/100 WBC (Bld) 8.0 % Normal [facility] Comment on above: Order Comment: Speci men Type: BLOOD SPECIMENOrdering Facility: [facility] Address: [address] [place] [address] Performed By: #### 5 7021-8 ####VILLARREAL LABORATORYCLIA [id number] [place] [address] [place] Neutrophils (Bld) [#/Vol] 11.41 10*3/uL High 1.45-7.50 [facility] Comment on above: Order Comment: Speci men Type: BLOOD SPECIMENOrdering Facility: [facility] Address: [address] [place] [address] Performed By: #### 5 7021-8 ####VILLARREAL LABORATORYCLIA [id number] [address] [place] Neutrophils/100 WBC (Bld) 81.7 % Normal [facility] Comment on above: Order Comment: Speci men Type: BLOOD SPECIMENOrdering Facility: [facility] Address: [address] [place] [address] Performed By: #### 5 7021-8 ####VILLARREAL LABORATORYCLIA [id number] [place] [address] [place] Nucleated RBC (Bld) [#/Vol] 10*3/uL Normal <0.01 [facility] Comment on above: Order Comment: Speci men Type: BLOOD SPECIMENOrdering Facility: [facility] Address: [address] [place] [address] Performed By: #### 5 7021-8 ####VILLARREAL LABORATORYCLIA [id number] [place] [address] [place] Nucleated RBC/100 WBC (Bld) [Ratio] 0.0 /100 WBC Normal [facility] Comment on above: Order Comment: Speci men Type: BLOOD SPECIMENOrdering Facility: [facility] Address: [address] [place] [address] Performed By: #### 5 7021-8 ####VILLARREAL LABORATORYCLIA [id number] [place] [address] [place] Platelet mean volume (Bld) [Entitic vol] 9.4 fL Normal 9.0-12.7 [facility] Comment on above: Order Comment: Speci men Type: BLOOD SPECIMENOrdering Facility: [facility] Address: [address] [place] [address] Performed By: #### 5 7021-8 ####VILLARREAL LABORATORYCLIA [id number] [address] [place] Platelets (Bld) [#/Vol] 358 10*3/uL Normal 150-400 [facility] Comment on above: Order Comment: Speci men Type: BLOOD SPECIMENOrdering Facility: [facility] Address: [address] [place] [address] Performed By: #### 5 7021-8 ####[facility] LABORATORYCLIA [id number] [place] [address] [place] RBC (Bld) [#/Vol] 3.78 10*6/uL Low 3.90-5.20 [facility] Comment on above: Order Comment: Speci men Type: BLOOD SPECIMENOrdering Facility: [facility] Address: [address] [place] [address] Performed By: #### 5 7021-8 ####VILLARREAL LABORATORYCLIA [id number] [address] [place] WBC (Bld) [#/Vol] 13.95 10*3/uL High 3.70-11.00 [facility] Comment on above: Order Comment: Speci men Type: BLOOD SPECIMENOrdering Facility: [facility] Address: [address] [place] [address] Performed By: #### 5 7021-8 ####[facility] LABORATORYCLIA [id number] [address] [place] CONSULT PROGon 11-25-2024 CONSULT PROG Normal [facility] CONSULT PROG Normal [facility] CONSULT PROG Normal [facility] Magnesium SerPl-mCncon 11-25 Magnesium [Mass/Vol] 1.1 mg/dL Low 1.7-2.3 [facility] Comment on above: Order Comment: Speci men Type: BLOOD SPECIMENOrdering Facility: [facility] Address: [address] [place], [place] [address] [address] Performed By: #### 2 4321-2, 68791-7 ####VILLARREAL LABORATORYCLIA [id number] [place] [address] [place] Basic metabolic 2000 panelon 11-24-2024 Anion gap [Moles/Vol] 14 mmol/L Normal 8-15 [facility] Comment on above: Order Comment: Speci men Type: BLOOD SPECIMENOrdering Facility: [facility] Address: [address] [place] [address] Performed By: #### 2 4321-2 ####VILLARREAL LABORATORYCLIA [id number] [place] [address] [place] Calcium [Mass/Vol] 8.8 mg/dL Normal 8.5-10.2 [facility] Comment on above: Order Comment: Speci men Type: BLOOD SPECIMENOrdering Facility: [facility] Address: [address] [place] [address] Performed By: #### 2 4321-2 ####VILL[facility] LABORATORYCLIA [id number] [place] [address] [place] Chloride [Moles/Vol] 95 mmol/L Low 98-107 [facility] Comment on above: Order Comment: Speci men Type: BLOOD SPECIMENOrdering Facility: [facility] Address: [address] [place] [address] Performed By: #### 2 4321-2 ####VILLARRE[facility] LABORATORYCLIA [id number] [place] [address] [place] CO2 [Moles/Vol] 24 mmol/L Normal 22-30 [facility] Comment on above: Order Comment: Speci men Type: BLOOD SPECIMENOrdering Facility: [facility] Address: [address] [place] [address] Performed By: #### 2 4321-2 ####VILL[facility] LABORATORYCLIA [id number] [place] [address] [place] Creatinine [Mass/Vol] 0.92 mg/dL Normal 0.58-0.96 [facility] [facility] Comment on above: Order Comment: Speci men Type: BLOOD SPECIMENOrdering Facility: [facility] Address: [address] [place] [address] Performed By: #### 2 4321-2 ####[facility] LABORATORYCLIA [id number] [place] [id number] [facility] Creatinine and Glomerular filtration rate.predicted panel (S/P/Bld) 60 mL/min/1.73m??? Normal >=60 [facility] Comment on above: Order Comment: Fan meade Type: BLOOD SPECIMENOrdering Facility: [facility] Address: [address] [place] [address] Result Comment: Hilda mated Glomerular Filtration Rate [...] Performed By: #### 2 4321-2 ####[facility] LABORATORYCLIA [id number] [place] [id number] [place] [facility] Glucose [Mass/Vol] 202 mg/dL High 74-99 [facility] Comment on above: Order Comment: Fan meade Type: BLOOD SPECIMENOrdering Facility: [facility] Address: [address] [place] [address] Result Comment: [place] Diabetes Association (ADA) provides guidance for cutoff [...] Standards of Medical Care in Diabetes 2016, [place] Diabetes Association. Diabetes Care. 2016.39(Suppl 1). Performed By: #### 2 4321-2 ####[facility]ORATORYCLIA [id number] [address] Potassium [Moles/Vol] 4.0 mmol/L Normal 3.7-5.1 [facility] Comment on above: Order Comment: Speci men Type: BLOOD SPECIMENOrdering Facility: [facility] Address: [address] [place] [address] Performed By: #### 2 4321-2 ####[facility] LABORATORYCLIA [id number] [address] Sodium [Moles/Vol] 133 mmol/L Low 136-144 [facility] Comment on above: Order Comment: Speci men Type: BLOOD SPECIMENOrdering Facility: [facility] Address: [address] [place] [address] Performed By: #### 2 4321-2 ####[facility] LABORATORYCLIA [id number] [address] Urea nitrogen [Mass/Vol] 39 mg/dL High 7-21 [facility] Comment on above: Order Comment: Speci men Type: BLOOD SPECIMENOrdering Facility: [facility] Address: [address] [place] [address] Performed By: #### 2 4321-2 ####[facility] LABORATORYCLIA [id number] [address] CBC panel Auto (Bld)on 11-24 Erythrocyte distribution width (RBC) [Ratio] 15.2 % High 11.5-15.0 [facility] Comment on above: Order Comment: Speci men Type: BLOOD SPECIMENOrdering Facility: [facility] Address: [address] [place] [address] Performed By: #### 5 8410-2 ####[facility] LABORATORYCLIA [id number] [address] Hematocrit (Bld) [Volume fraction] 29.3 % Low 36.0-46.0 [facility] Comment on above: Order Comment: Speci men Type: BLOOD SPECIMENOrdering Facility: [facility] Address: [address] [place] [address] Performed By: #### 5 8410-2 ####[facility] LABORATORYCLIA [id number] [address] [facility] Hemoglobin (Bld) [Mass/Vol] 9.7 g/dL Low 11.5-15.5 [facility] Comment on above: Order Comment: Speci men Type: BLOOD SPECIMENOrdering Facility: [facility] Address: [address] [place] [address] Performed By: #### 5 8410-2 ####[facility] LABORATORYCLIA [id number] [address] [place] [facility] MCH (RBC) [Entitic mass] 27.8 pg Normal 26.0-34.0 [facility] Comment on above: Order Comment: Speci men Type: BLOOD SPECIMENOrdering Facility: [facility] Address: [address] [place] [address] Performed By: #### 5 8410-2 ####[facility] LABORATORYCLIA [id number] [address] MCHC (RBC) [Mass/Vol] 33.1 g/dL Normal 30.5-36.0 [facility] Comment on above: Order Comment: Speci men Type: BLOOD SPECIMENOrdering Facility: [facility] Address: [address] [place] [address] Performed By: #### 5 8410-2 ####[facility] LABORATORYCLIA [id number] [address] MCV (RBC) [Entitic vol] 84.0 fL Normal 80.0-100.0 [facility] Comment on above: Order Comment: Speci men Type: BLOOD SPECIMENOrdering Facility: [facility] Address: [address] [place] [address] Performed By: #### 5 8410-2 ####[facility] LABORATORYCLIA [id number] [address] Nucleated RBC (Bld) [#/Vol] 10*3/uL Normal <0.01 [facility] Comment on above: Order Comment: Speci men Type: BLOOD SPECIMENOrdering Facility: [facility] Address: [address] [place] [address] Performed By: #### 5 8410-2 ####[facility]ORATORYCLIA [id number] [place] [id number] [place] Platelet mean volume (Bld) [Entitic vol] 9.5 fL Normal 9.0-12.7 [facility] Comment on above: Order Comment: Speci men Type: BLOOD SPECIMENOrdering Facility: [facility] Address: [address] [place] [address] Performed By: #### 5 8410-2 ####[facility]ORATORYCLIA [id number] [place] [address] [place] Platelets (Bld) [#/Vol] 338 10*3/uL Normal 150-400 [facility] Comment on above: Order Comment: Speci men Type: BLOOD SPECIMENOrdering Facility: [facility] Address: [address] [place] [address] Performed By: #### 5 8410-2 ####[facility]ORATORYCLIA [id number] [place] [address] [place] RBC (Bld) [#/Vol] 3.49 10*6/uL Low 3.90-5.20 [facility] Comment on above: Order Comment: Speci men Type: BLOOD SPECIMENOrdering Facility: [facility] Address: [address] [place] [address] Performed By: #### 5 8410-2 ####[facility]ORATORYCLIA [id number] [place] [id number] [place] WBC (Bld) [#/Vol] 12.48 10*3/uL High 3.70-11.00 [facility] Comment on above: Order Comment: Speci men Type: BLOOD SPECIMENOrdering Facility: [facility] Address: [address] [place] [address] Performed By: #### 5 8410-2 ####[facility]ORATORYCLIA [id number] [place] [id number] [place] [facility] [place] CONSULTon 11-24-2024 CONSULT Normal [facility] CONSULT PROGon 11-24-2024 CONSULT PROG Normal [facility] CONSULT PROG Normal [facility] Vancomycin [place] SerPl-mCncon 11-24-2024 Vancomycin random [Mass/Vol] 11.6 ug/mL Normal 10.0-20.0 [facility] Comment on above: Order Comment: Speci men Type: BLOOD SPECIMENOrdering Facility: [facility] Address: [address] [place] [address] Result Comment: Refe rence ranges and high/low indicator flags are provided as general guidelines only. The treating physician must determine appropriate target levels/dosing based on the specific clinical situation. Performed By: #### 4 091-5 ####[facility] LABORATORYCLIA [id number] [place] [address] [place] Basic metabolic 2000 panelon 11-23-2024 Anion gap [Moles/Vol] 14 mmol/L Normal 8-15 [facility] Comment on above: Order Comment: Speci men Type: BLOOD SPECIMENOrdering Facility: [facility] Address: [address] [place] [address] Performed By: #### 2 4321-2 ####[facility]ORATORYCLIA [id number] [place] [address] [place] Calcium [Mass/Vol] 8.7 mg/dL Normal 8.5-10.2 [facility] Comment on above: Order Comment: Speci men Type: BLOOD SPECIMENOrdering Facility: [facility] Address: [address] [place] [address] Performed By: #### 2 4321-2 ####[facility] LABORATORYCLIA [id number] [place] [address] [place] Chloride [Moles/Vol] 98 mmol/L Normal 98-107 [facility] Comment on above: Order Comment: Speci men Type: BLOOD SPECIMENOrdering Facility: [facility] Address: [address] [place] [address] Performed By: #### 2 4321-2 ####[facility] LABORATORYCLIA [id number] [place] [address] [place] CO2 [Moles/Vol] 24 mmol/L Normal 22-30 [facility] Comment on above: Order Comment: Speci men Type: BLOOD SPECIMENOrdering Facility: [facility] Address: [address] [place] [address] Performed By: #### 2 4321-2 ####[facility] LABORATORYCLIA [id number] [address] STATES [facility] Creatinine [Mass/Vol] 0.96 mg/dL Normal 0.58-0.96 [facility] Comment on above: Order Comment: Fan meade Type: BLOOD SPECIMENOrdering Facility: [facility] Address: [address] [place] [address] Performed By: #### 2 4321-2 ####[facility] LABORATORYCLIA [id number] [address] Creatinine and Glomerular filtration rate.predicted panel (S/P/Bld) 57 mL/min/1.73m??? Low >=60 [facility] Comment on above: Order Comment: Fan meade Type: BLOOD SPECIMENOrdering Facility: [facility] Address: [address] [place] [address] Result Comment: Hilda mated Glomerular Filtration Rate [...] actual GFR. Performed By: #### 2 4321-2 ####[facility]ORATORYCLIA [id number] [address] Glucose [Mass/Vol] 193 mg/dL High 74-99 [facility] Comment on above: Order Comment: Fan meade Type: BLOOD SPECIMENOrdering Facility: [facility] Address: [address] [place] [address] Result Comment: The [place] Diabetes Association (ADA) provides guidance for cutoff [...] Standards of Medical Care in Diabetes 2016, [place] Diabetes Association. Diabetes Care. 2016.39(Suppl 1). Performed By: #### 2 4321-2 ####[facility] LABORATORYCLIA [id number] [place] [address] [place] Potassium [Moles/Vol] 4.1 mmol/L Normal 3.7-5.1 [facility] Comment on above: Order Comment: Speci men Type: BLOOD SPECIMENOrdering Facility: [facility] Address: [address] [place] [address] Performed By: #### 2 4321-2 ####[facility] LABORATORYCLIA [id number] [address] STATES [facility] Sodium [Moles/Vol] 136 mmol/L Normal 136-144 [facility] Comment on above: Order Comment: Katei men Type: BLOOD SPECIMENOrdering Facility: [facility] Address: [address] [place] [address] Performed By: #### 2 4321-2 ####[facility] LABORATORYCLIA [id number] [place] [address] [place] Urea nitrogen [Mass/Vol] 31 mg/dL High 7-21 [facility] Comment on above: Order Comment: Katei halina Type: BLOOD SPECIMENOrdering Facility: [facility] Address: [address] [place] [address] Performed By: #### 2 4321-2 ####[facility] LABORATORYCLIA [id number] [place] [id number] [place] CASE MANAGEMon 11-23-2024 CASE MANAGEM Normal [facility] CBC panel Auto (Bld)on 11-23 Erythrocyte distribution width (RBC) [Ratio] 15.1 % High 11.5-15.0 [facility] Comment on above: Order Comment: Fan meade Type: BLOOD SPECIMENOrdering Facility: [facility] Address: [address] [place] [address] Performed By: #### 5 8410-2 ####[facility] LABORATORYCLIA [id number] [address] Hematocrit (Bld) [Volume fraction] 30.5 % Low 36.0-46.0 [facility] Comment on above: Order Comment: Speci men Type: BLOOD SPECIMENOrdering Facility: [facility] Address: [address] [place] [address] Performed By: #### 5 8410-2 ####[facility] LABORATORYCLIA [id number] [address] Hemoglobin (Bld) [Mass/Vol] 10.2 g/dL Low 11.5-15.5 [facility] Comment on above: Order Comment: Speci men Type: BLOOD SPECIMENOrdering Facility: [facility] Address: [address] [place] [address] Performed By: #### 5 8410-2 ####[facility] LABORATORYCLIA [id number] [address] MCH (RBC) [Entitic mass] 28.2 pg Normal 26.0-34.0 [facility] Comment on above: Order Comment: Speci men Type: BLOOD SPECIMENOrdering Facility: [facility] Address: [address] [place] [address] Performed By: #### 5 8410-2 ####[facility] LABORATORYCLIA [id number] [address] MCHC (RBC) [Mass/Vol] 33.4 g/dL Normal 30.5-36.0 [facility] Comment on above: Order Comment: Speci men Type: BLOOD SPECIMENOrdering Facility: [facility] Address: [address] [place] [address] Performed By: #### 5 8410-2 ####[facility] LABORATORYCLIA [id number] [address] MCV (RBC) [Entitic vol] 84.3 fL Normal 80.0-100.0 [facility] Comment on above: Order Comment: Speci men Type: BLOOD SPECIMENOrdering Facility: [facility] Address: [address] [place] [address] Performed By: #### 5 8410-2 ####[facility] LABORATORYCLIA [id number] [place] [id number] [place] Nucleated RBC (Bld) [#/Vol] 10*3/uL Normal <0.01 [facility] Comment on above: Order Comment: Speci men Type: BLOOD SPECIMENOrdering Facility: [facility] Address: [address] [place] [address] Performed By: #### 5 8410-2 ####[facility] LABORATORYCLIA [id number] [place] [address] [place] Platelet mean volume (Bld) [Entitic vol] 9.5 fL Normal 9.0-12.7 [facility] Comment on above: Order Comment: Speci men Type: BLOOD SPECIMENOrdering Facility: [facility] Address: [address] [place] [address] Performed By: #### 5 8410-2 ####[facility] LABORATORYCLIA [id number] [address] [place] Platelets (Bld) [#/Vol] 338 10*3/uL Normal 150-400 [facility] Comment on above: Order Comment: Speci men Type: BLOOD SPECIMENOrdering Facility: [facility] Address: [address] [place] [address] Performed By: #### 5 8410-2 ####[facility]ORATORYCLIA [id number] [place] [address] [place] RBC (Bld) [#/Vol] 3.62 10*6/uL Low 3.90-5.20 [facility] Comment on above: Order Comment: Speci men Type: BLOOD SPECIMENOrdering Facility: [facility] Address: [address] [place] [address] Performed By: #### 5 8410-2 ####[facility] LABORATORYCLIA [id number] [address] [place] WBC (Bld) [#/Vol] 15.48 10*3/uL High 3.70-11.00 [facility] Comment on above: Order Comment: Speci men Type: BLOOD SPECIMENOrdering Facility: [facility] Address: [address] [place] [address] Performed By: #### 5 8410-2 ####[facility] LABORATORYCLIA [id number] [place] [id number] [place] CONSULT PROGon 11-23-2024 CONSULT PROG Normal [facility] THERAPY NTon 11-23-2024 THERAPY NT Normal [facility] THERAPY NT Normal [facility] Bacteria Spec Anaerobe Culto n 11-22-2024 Bacteria identified Anaer cx Nom (Unsp spec) Negative Normal [facility] Comment on above: Performed By: #### 6 462-6, 635-3 ####[facility] LABCLIA [id number] [place] [address] [place] Bacteria Wnd Culton 11-22-19 Bacteria identified Cx Nom (Wound) ORGANISM ID: 1 Many Staphylococcus aureus Refer to specimen collected on 11/21/2024 at 10:34 PM [[id number]] GRAM STAIN: Rare Gram positive cocci Rare Polymorphonuclear leukocytes Abnormal [facility] Comment on above: Performed By: #### 6 462-6, 635-3 ####[facility] LABCLIA [id number] [place] [id number] [place] Basic metabolic 2000 panelon 11-22-2024 Anion gap [Moles/Vol] 11 mmol/L Normal 8-15 [facility] Comment on above: Order Comment: Speci men Type: BLOOD SPECIMENOrdering Facility: [facility] Address: [address] [place] [address] Performed By: #### 2 4321-2 ####[facility] LABORATORYCLIA [id number] [place] [id number] [place] Calcium [Mass/Vol] 8.2 mg/dL Low 8.5-10.2 [facility] Comment on above: Order Comment: Speci men Type: BLOOD SPECIMENOrdering Facility: [facility] Address: [address] [place] [address] Performed By: #### 2 4321-2 ####[facility] LABORATORYCLIA [id number] [address] Chloride [Moles/Vol] 97 mmol/L Low 98-107 [facility] Comment on above: Order Comment: Specleroy meade Type: BLOOD SPECIMENOrdering Facility: [facility] Address: [address] [place] [address] Performed By: #### 2 4321-2 ####[facility] LABORATORYCLIA [id number] [address] [place] CO2 [Moles/Vol] 25 mmol/L Normal 22-30 [facility] Comment on above: Order Comment: Speci men Type: BLOOD SPECIMENOrdering Facility: [facility] Address: [address] [place] [address] Performed By: #### 2 4321-2 ####[facility] LABORATORYCLIA [id number] [address] Creatinine [Mass/Vol] 0.89 mg/dL Normal 0.58-0.96 [facility] Comment on above: Order Comment: Speci men Type: BLOOD SPECIMENOrdering Facility: [facility] Address: [address] [place] [address] Performed By: #### 2 4321-2 ####[facility] LABORATORYCLIA [id number] [address] Creatinine and Glomerular filtration rate.predicted panel (S/P/Bld) 62 mL/min/1.73m??? Normal >=60 [facility] Comment on above: Order Comment: Fan meade Type: BLOOD SPECIMENOrdering Facility: [facility] Address: [address] [place] [address] Result Comment: Hilda mated Glomerular Filtration Rate [...] Performed By: #### 2 4321-2 ####[facility] LABORATORYCLIA [id number] [place] [address] [place] Glucose [Mass/Vol] 291 mg/dL High 74-99 [facility] Comment on above: Order Comment: Fan men Type: BLOOD SPECIMENOrdering Facility: [facility] Address: [address] [place] [id number] Result Comment: The [place] Diabetes Association (ADA) provides guidance for cutoff [...] Standards of Medical Care in Diabetes 2016, [place] Diabetes Association. Diabetes Care. 2016.39(Suppl 1). Performed By: #### 2 4321-2 ####[facility] LABORATORYCLIA [id number] [place] [id number] [place] Potassium [Moles/Vol] 4.1 mmol/L Normal 3.7-5.1 [facility] Comment on above: Order Comment: Fan halina Type: BLOOD SPECIMENOrdering Facility: [facility] Address: [address] [place] [address] Performed By: #### 2 4321-2 ####[facility] LABORATORYCLIA [id number] [place] [id number] [place] Sodium [Moles/Vol] 133 mmol/L Low 136-144 [facility] Comment on above: Order Comment: Katei halina Type: BLOOD SPECIMENOrdering Facility: [facility] Address: [address] [place] [address] Performed By: #### 2 4321-2 ####[facility] LABORATORYCLIA [id number] [place] [id number] [place] Urea nitrogen [Mass/Vol] 30 mg/dL High 7-21 [facility] Comment on above: Order Comment: Katei men Type: BLOOD SPECIMENOrdering Facility: [facility] Address: [address] [place] [address] Performed By: #### 2 4321-2 ####[facility] LABORATORYCLIA [id number] [place] [address] [place] CASE MGT INIT ASSESon 2024 [facility] panel Auto (Bld)on 11-22 Erythrocyte distribution width (RBC) [Ratio] 15.2 % High 11.5-15.0 [facility] Comment on above: Order Comment: Speci men Type: BLOOD SPECIMENOrdering Facility: [facility] Address: [address] [place] [address] Performed By: #### 5 8410-2 ####[facility] LABORATORYCLIA [id number] [address] [place] Hematocrit (Bld) [Volume fraction] 28.5 % Low 36.0-46.0 [facility] Comment on above: Order Comment: Speci men Type: BLOOD SPECIMENOrdering Facility: [facility] Address: [address] [place] [address] Performed By: #### 5 8410-2 ####[facility] LABORATORYCLIA [id number] [place] [address] [place] Hemoglobin (Bld) [Mass/Vol] 9.3 g/dL Low 11.5-15.5 [facility] Comment on above: Order Comment: Speci men Type: BLOOD SPECIMENOrdering Facility: [facility] Address: [facility] [place] [address] Performed By: #### 5 8410-2 ####[facility] LABORATORYCLIA [id number] [address] [place] MCH (RBC) [Entitic mass] 27.8 pg Normal 26.0-34.0 [facility] Comment on above: Order Comment: Speci men Type: BLOOD SPECIMENOrdering Facility: [facility] Address: [address] [place] [address] Performed By: #### 5 8410-2 ####[facility] LABORATORYCLIA [id number] [address] [place] MCHC (RBC) [Mass/Vol] 32.6 g/dL Normal 30.5-36.0 [facility] Comment on above: Order Comment: Speci men Type: BLOOD SPECIMENOrdering Facility: [facility] Address: [address] [place] [address] Performed By: #### 5 8410-2 ####[facility] LABORATORYCLIA [id number] [address] [place] MCV (RBC) [Entitic vol] 85.3 fL Normal 80.0-100.0 [facility] Comment on above: Order Comment: Speci men Type: BLOOD SPECIMENOrdering Facility: [facility] Address: [address] [place] [address] Performed By: #### 5 8410-2 ####[facility] LABORATORYCLIA [id number] [address] Nucleated RBC (Bld) [#/Vol] 10*3/uL Normal <0.01 [facility] Comment on above: Order Comment: Speci men Type: BLOOD SPECIMENOrdering Facility: [facility] Address: [address] [place] [address] Performed By: #### 5 8410-2 ####[facility] LABORATORYCLIA [id number] [address] [place] Platelet mean volume (Bld) [Entitic vol] 9.5 fL Normal 9.0-12.7 [facility] Comment on above: Order Comment: Speci men Type: BLOOD SPECIMENOrdering Facility: [facility] Address: [address] [place] [address] Performed By: #### 5 8410-2 ####[facility] LABORATORYCLIA [id number] [address] [place] Platelets (Bld) [#/Vol] 294 10*3/uL Normal 150-400 [facility] Comment on above: Order Comment: Speci men Type: BLOOD SPECIMENOrdering Facility: [facility] Address: [address] [place] [address] Performed By: #### 5 8410-2 ####[facility] LABORATORYCLIA [id number] [place] [address] [place] [facility] [place] RBC (Bld) [#/Vol] 3.34 10*6/uL Low 3.90-5.20 [facility] Comment on above: Order Comment: Speci men Type: BLOOD SPECIMENOrdering Facility: [facility] Address: [address] [place] [address] Performed By: #### 5 8410-2 ####[facility]ORYCLIA [id number] [address] [place] WBC (Bld) [#/Vol] 15.66 10*3/uL High 3.70-11.00 [facility] Comment on above: Order Comment: Speci men Type: BLOOD SPECIMENOrdering Facility: [facility] Address: [address] [place] [address] Performed By: #### 5 8410-2 ####[facility]ORYCLIA [id number] [address] [place] CONSULTon 11-22-2024 CONSULT Normal [facility] CONSULT PROGon 11-22-2024 CONSULT PROG [facility] ESR Westergren method (Bld) [Velocity]on 11-22-2024 ESR (Bld) [Velocity] 40 mm/h High 0-20 [facility] Comment on above: Order Comment: Speci men Type: BLOOD SPECIMENOrdering Facility: [facility] Address: [address] [place] [address] Performed By: #### 4 537-7 ####[facility] LABCLIA [id number] [facility] [id number] [id number] [facility] [place] HISTORY PHYSICALon HISTORY PHYSICAL Normal [facility] NUTRITIONon 11-22-2024 NUTRITION Normal [facility] SEPSIS LACTATE W/ REFLEX (SE COND)on 11-22-2024 Lactate [Moles/Vol] 1.9 mmol/L Normal 0.5-2.0 [facility] Comment on above: Order Comment: Speci men Type: BLOOD SPECIMENOrdering Facility: [facility] Address: [address] [place] [address] Performed By: #### S LACT2 ####[facility]ORYCLIA [id number] [place] [address] [place] US ANKLE BRACHIAL INDICESon 11-22-2024 US ANKLE BRACHIAL INDICES Normal [facility] Bacteria Bld Culton 11-21-19 25 Bacteria identified Cx Nom (Bld) CULTURE, BLOOD: No growth 5 days Normal [facility] Comment on above: Performed By: #### 6 00-7 ####[facility] LABCLIA [id number] [place] [address] [place] Bacteria identified Cx Nom (Bld) ORGANISM ID: 1 Gram positive diphtheroid-like bacilli Probable contaminant. Susceptibility testing will not be performed. Call lab within 72 hours to initiate workup if clinically indicated. GRAM STAIN: Gram positive bacilli Abnormal [facility] Comment on above: Performed By: #### 6 00-7 ####[facility] LABCLIA [id number] [place] [address] [place] Bacteria Wnd Culton 11-21-19 25 Bacteria identified Cx Nom (Wound) Abnormal [facility] Comment on above: Performed By: #### 6 462-6 ####[facility] LABIA [id number] [place] [address] [place] CBC W Auto Differential pane l (Bld)on 11-21-2024 Basophils (Bld) [#/Vol] 0.04 10*3/uL Normal <0.11 [facility] Comment on above: Order Comment: Speci men Type: BLOOD SPECIMENOrdering Facility: [facility] Address: [address] [place] [address] Performed By: #### 5 5454-3 ####[facility] LABIA [id number] [place] [address] [place]#### 30343-8 ####[facility]ORYCLIA [id number] [place] [address] [place] Basophils/100 WBC (Bld) 0.2 % [facility] Comment on above: Order Comment: Speci men Type: BLOOD SPECIMENOrdering Facility: [facility] Address: [address] [place] [address] Performed By: #### 5 5454-3 ####[facility] LABCLIA [id number] [place] [address] [place]#### 26133-1 ####[facility]ORYCL[facility] [id number] [place] [address] [place] Differential cell count method Nom (Bld) Auto Normal [facility] Comment on above: Order Comment: Speci men Type: BLOOD SPECIMENOrdering Facility: [facility] Address: [address] [place] [address] Performed By: #### 5 5454-3 ####[facility] LABCLIA [id number] [place] [address] [place]#### 20035-1 ####[facility]ORYCLIA [id number] [place] [address] [place] Eosinophils (Bld) [#/Vol] 10*3/uL Normal <0.46 [facility] Comment on above: Order Comment: Speci men Type: BLOOD SPECIMENOrdering Facility: [facility] Address: [address] [place] [address] Performed By: #### 5 5454-3 ####[facility] LABCLIA [id number] [place] [address] [place]#### 49644-8 ####[facility]ORYCLIA [id number] [place] [address] [place] Eosinophils/100 WBC (Bld) 0.0 % Normal [facility] Comment on above: Order Comment: Speci men Type: BLOOD SPECIMENOrdering Facility: [facility] Address: [address] [place] [address] Performed By: #### 5 5454-3 ####[facility] LABCLIA [id number] [place] [address]#### 61976-9 ####[facility]ORYCLIA [id number] [address] STATES [facility] Erythrocyte distribution width (RBC) [Ratio] 15.0 % Normal 11.5-15.0 [facility] Comment on above: Order Comment: Speci men Type: BLOOD SPECIMENOrdering Facility: [facility] Address: [address] [place] [address] Performed By: #### 5 5454-3 ####[facility] LABCLIA [id number] [address] [place]#### 72536-7 ####[facility]ORYCLIA [id number] [address] [place] Hematocrit (Bld) [Volume fraction] 32.3 % Low 36.0-46.0 [facility] Comment on above: Order Comment: Speci men Type: BLOOD SPECIMENOrdering Facility: [facility] Address: [address] [place] [address] Performed By: #### 5 5454-3 ####[facility] LABCLIA [id number] [address] [place]#### 91288-2 ####[facility]ORYCLIA [id number] [address] [place] Hemoglobin (Bld) [Mass/Vol] 10.9 g/dL Low 11.5-15.5 [facility] Comment on above: Order Comment: Speci men Type: BLOOD SPECIMENOrdering Facility: [facility] Address: [address] [place] [address] Performed By: #### 5 5454-3 ####[facility] LABCLIA [id number] [address] [place]#### 16469-8 ####[facility]ORYCLIA [id number] [address] [place] Immature granulocytes (Bld) [#/Vol] 0.13 10*3/uL High <0.10 [facility] Comment on above: Order Comment: Speci men Type: BLOOD SPECIMENOrdering Facility: [facility] Address: [address] [place] [address] Performed By: #### 5 5454-3 ####[facility] LABCLIA [id number] [place] [address] [place]#### 41366-9 ####[facility]ORYCLIA [id number] [place] [address] [place] Immature granulocytes/100 WBC (Bld) 0.7 % Normal [facility] Comment on above: Order Comment: Speci men Type: BLOOD SPECIMENOrdering Facility: [facility] Address: [address] [place] [address] Performed By: #### 5 5454-3 ####[facility] LABCLIA [id number] [place] [address] [place]#### 13466-3 ####[facility]ORYCLIA [id number] [place] [address] [place] Lymphocytes (Bld) [#/Vol] 0.76 10*3/uL Low 1.00-4.00 [facility] Comment on above: Order Comment: Speci men Type: BLOOD SPECIMENOrdering Facility: [facility] Address: [address] [place] [address] Performed By: #### 5 5454-3 ####[facility] LABCLIA [id number] [place] [address] [place]#### 43079-2 ####[facility]ATORYCLIA [id number] [place] [id number] [place] Lymphocytes/100 WBC (Bld) 3.8 % Normal [facility] Comment on above: Order Comment: Speci men Type: BLOOD SPECIMENOrdering Facility: [facility] Address: [address] [place] [address] Performed By: #### 5 5454-3 ####[facility] LABCLIA [id number] [place] [address] [place]#### 31115-0 ####[facility]ORYCLIA [id number] [address] STATES [facility] MCH (RBC) [Entitic mass] 28.5 pg Normal 26.0-34.0 [facility] Comment on above: Order Comment: Speci men Type: BLOOD SPECIMENOrdering Facility: [facility] Address: [address] [place] [address] Performed By: #### 5 5454-3 ####[facility] LABCLIA [id number] [place] [address] [place]#### 21733-7 ####[facility]ORYCLIA [id number] [address] [place] MCHC (RBC) [Mass/Vol] 33.7 g/dL Normal 30.5-36.0 [facility] Comment on above: Order Comment: Speci men Type: BLOOD SPECIMENOrdering Facility: [facility] Address: [address] [place] [address] Performed By: #### 5 5454-3 ####[facility] LABCLIA [id number] [address] [place]#### 37255-5 ####[facility]ORYCLIA [id number] [address] [place] MCV (RBC) [Entitic vol] 84.3 fL Normal 80.0-100.0 M [facility] Comment on above: Order Comment: Speci men Type: BLOOD SPECIMENOrdering Facility: [facility] Address: [address] [place] [address] Performed By: #### 5 5454-3 ####[facility] LABCLIA [id number] [place] [address] [place]#### 09527-2 ####[facility]ATORYCLIA [id number] [place] [address] [place] Monocytes (Bld) [#/Vol] 0.94 10*3/uL High <0.87 [facility] Comment on above: Order Comment: Speci men Type: BLOOD SPECIMENOrdering Facility: [facility] Address: [address] [place] [address] Performed By: #### 5 5454-3 ####[facility] LABCLIA [id number] [place] [address] [place]#### 92903-0 ####[facility]ORYCLIA [id number] [place] [address] [place] Monocytes/100 WBC (Bld) 4.7 % Normal [facility] Comment on above: Order Comment: Speci men Type: BLOOD SPECIMENOrdering Facility: [facility] Address: [address] [place] [address] Performed By: #### 5 5454-3 ####[facility] LABCLIA [id number] [place] [address] [place]#### 56928-8 ####[facility]ORYCLIA [id number] [place] [address] [place] Neutrophils (Bld) [#/Vol] 17.99 10*3/uL High 1.45-7.50 [facility] Comment on above: Order Comment: Speci men Type: BLOOD SPECIMENOrdering Facility: [facility] Address: [address] [place] [address] Performed By: #### 5 5454-3 ####[facility] LABCLIA [id number] [place] [address] [place]#### 61232-1 ####[facility]ORYCLIA [id number] [address] [place] Neutrophils/100 WBC (Bld) 90.6 % Normal [facility] Comment on above: Order Comment: Speci men Type: BLOOD SPECIMENOrdering Facility: [facility] Address: [address] [place] [address] Performed By: #### 5 5454-3 ####[facility] LABCLIA [id number] [place] [address] [place]#### 45317-8 ####[facility]ORYCLIA [id number] [address] [place] Nucleated RBC (Bld) [#/Vol] 10*3/uL Normal <0.01 [facility] Comment on above: Order Comment: Speci men Type: BLOOD SPECIMENOrdering Facility: [facility] Address: [address] [place] [address] Performed By: #### 5 5454-3 ####[facility] LABCLIA [id number] [place] [address] [place]#### 03824-4 ####[facility]ORYCLIA [id number] [address] [place] Nucleated RBC/100 WBC (Bld) [Ratio] 0.0 /100 WBC Normal [facility] Comment on above: Order Comment: Speci men Type: BLOOD SPECIMENOrdering Facility: [facility] Address: [address] [place] [address] Performed By: #### 5 5454-3 ####[facility] LABCLIA [id number] [place] [address] [place]#### 02306-0 ####[facility]ORYCLIA [id number] [place] [address] [place] Platelet mean volume (Bld) [Entitic vol] 9.0 fL Normal 9.0-12.7 [facility] Comment on above: Order Comment: Speci men Type: BLOOD SPECIMENOrdering Facility: [facility] Address: [address] [place] [address] Performed By: #### 5 5454-3 ####[facility] LABCLIA [id number] [place] [address] [place]#### 91706-2 ####[facility]ORYCLIA [id number] [place] [address] [place] Platelets (Bld) [#/Vol] 326 10*3/uL Normal 150-400 [facility] Comment on above: Order Comment: Speci men Type: BLOOD SPECIMENOrdering Facility: [facility] Address: [address] [place] [address] Performed By: #### 5 5454-3 ####[facility] LABCLIA [id number] [place] [address] [place]#### 63249-7 ####[facility]ORYCLIA [id number] [place] [address] [place] RBC (Bld) [#/Vol] 3.83 10*6/uL Low 3.90-5.20 [facility] Comment on above: Order Comment: Speci men Type: BLOOD SPECIMENOrdering Facility: [facility] Address: [address] [place] [address] Performed By: #### 5 5454-3 ####[facility] LABCLIA [id number] [place] [address] [place]#### 09410-7 ####[facility]ORYCLIA [id number] [place] [address] [place] WBC (Bld) [#/Vol] 19.86 10*3/uL High 3.70-11.00 [facility] Comment on above: Order Comment: Speci men Type: BLOOD SPECIMENOrdering Facility: [facility] Address: [address] [place] [address] Performed By: #### 5 5454-3 ####[facility] LABCLIA [id number] [place] [address] [place]#### 90763-6 ####[facility]ORYCLIA [id number] [place] [address] [place] CRP SerPl-mCncon 11-21-2024 CRP [Mass/Vol] 3.8 mg/dL High <0.9 [facility] Comment on above: Order Comment: Speci men Type: BLOOD SPECIMENOrdering Facility: [facility] Address: [address] [place] [address] Performed By: #### 2 4323-8, 99980-9, 1988-03, ####[facility]ORYCLIA [id number] [place] [address] [place] [facility] Comprehensive metabolic 2000 panelon 11-21-2024 Albumin [Mass/Vol] 3.7 g/dL Low 3.9-4.9 [facility] Comment on above: Order Comment: Speci men Type: BLOOD SPECIMENOrdering Facility: [facility] Address: [address] [place] [address] Performed By: #### 2 4323-8, 64413-6, 1988-03, ####[facility]ORYCLIA [id number] [place] [address] [place] ALP [Catalytic activity/Vol] 90 U/L Normal 34-123 [facility] Comment on above: Order Comment: Speci men Type: BLOOD SPECIMENOrdering Facility: [facility] Address: [address] [place] [address] Performed By: #### 2 4323-8, 98738-6, 1988-03, ####[facility]ORYCLIA [id number] [address] ALT [Catalytic activity/Vol] 10 U/L Normal 7-38 [facility] Comment on above: Order Comment: Speci men Type: BLOOD SPECIMENOrdering Facility: [facility] Address: [address] [place] [address] Performed By: #### 2 4323-8, 88527-0, 1988-03, ####[facility]ATORYCLIA [id number] [place] [address] [place] [facility] Anion gap [Moles/Vol] 13 mmol/L Normal 8-15 [facility] Comment on above: Order Comment: Speci men Type: BLOOD SPECIMENOrdering Facility: [facility] Address: [address] [place] [address] [place] [address] Performed By: #### 2 4323-8, 45149-2, 1988-03, ####[facility]ATORYCLIA [id number] [place] [address] [place] AST [Catalytic activity/Vol] 14 U/L Normal 13-35 [facility] Comment on above: Order Comment: Speci men Type: BLOOD SPECIMENOrdering Facility: [facility] Address: [address] [place] [address] Performed By: #### 2 4323-8, 32861-2, 1988-03, ####[facility]ATORYCLIA [id number] [place] [address] [place] Bilirubin [Mass/Vol] 0.2 mg/dL Normal 0.2-1.3 [facility] Comment on above: Order Comment: Speci men Type: BLOOD SPECIMENOrdering Facility: [facility] Address: [address] [place] [address] Performed By: #### 2 4323-8, 49413-6, 1988-03, ####[facility]ATORYCLIA [id number] [place] [address] [place] Calcium [Mass/Vol] 9.3 mg/dL Normal 8.5-10.2 [facility] Comment on above: Order Comment: Speci men Type: BLOOD SPECIMENOrdering Facility: [facility] Address: [address] [place] [address] Performed By: #### 2 4323-8, , 1988-03, ####[facility]ORATORYCLIA [id number] [place] [id number] [place] Chloride [Moles/Vol] 96 mmol/L Low 98-107 [facility] Comment on above: Order Comment: Speci men Type: BLOOD SPECIMENOrdering Facility: [facility] Address: [address] [place] [address] Performed By: #### 2 4323-8, 46609-0, 1988-03, ####[facility]ATORYCLIA [id number] [place] [address] [place] CO2 [Moles/Vol] 25 mmol/L Normal 22-30 [facility] Comment on above: Order Comment: Fan meade Type: BLOOD SPECIMENOrdering Facility: [facility] Address: [address] [place] [address] Performed By: #### 2 4323-8, 49339-0, 1988-03, ####[facility]ORYCLIA [id number] [place] [address] [place] Creatinine [Mass/Vol] 1.02 mg/dL High 0.58-0.96 [facility] Comment on above: Order Comment: Fan meade Type: BLOOD SPECIMENOrdering Facility: [facility] Address: [address] [place] [address] Performed By: #### 2 4323-8, 94135-4, 1988-03, ####[facility]ORYCLIA [id number] [address] [place] [facility] Creatinine and Glomerular filtration rate.predicted panel (S/P/Bld) 53 mL/min/1.73m??? Low >=60 [facility] Comment on above: Order Comment: Fan meade Type: BLOOD SPECIMENOrdering Facility: [facility] Address: [address] [place] [address] Result Comment: Hilda mated Glomerular Filtration Rate [...] actual GFR. Performed By: #### 2 4323-8, 85224-5, 1988-03, ####[facility]ATORYCLIA [id number] [place] [id number] [place] Glucose [Mass/Vol] 314 mg/dL High 74-99 [facility] Comment on above: Order Comment: Fan meade Type: BLOOD SPECIMENOrdering Facility: [facility] Address: [address] [place] [address] Result Comment: The [place] Diabetes Association (ADA) provides guidance for cutoff [...] Standards of Medical Care in Diabetes 2016, [place] Diabetes Association. Diabetes Care. 2016.39(Suppl 1). Performed By: #### 2 4323-8, 81218-9, 1988-03, ####[facility]ATORYCLIA [id number] [place] [address] [place] Potassium [Moles/Vol] 4.7 mmol/L Normal 3.7-5.1 [facility] Comment on above: Order Comment: Katei men Type: BLOOD SPECIMENOrdering Facility: [facility] Address: [address] [place] [id number] Performed By: #### 2 4323-8, 60078-8, 1988-03, ####[facility]ORATORYCLIA [id number] [place] [address] [place] Protein [Mass/Vol] 6.4 g/dL Normal 6.3-8.0 [facility] Comment on above: Order Comment: Katei men Type: BLOOD SPECIMENOrdering Facility: [facility] Address: [address] [place] [address] Performed By: #### 2 4323-8, 05323-1, 1988-03, ####[facility]ORATORYCLIA [id number] [place] [address] [place] Sodium [Moles/Vol] 134 mmol/L Low 136-144 [facility] Comment on above: Order Comment: Speci men Type: BLOOD SPECIMENOrdering Facility: [facility] Address: [address] [place] [address] Performed By: #### 2 4323-8, 29122-2, 1988-03, 71844-4 ####[facility] LABORATORYCLIA [id number] [place] [address] [place] [facility] Urea nitrogen [Mass/Vol] 37 mg/dL High 7-21 [facility] Comment on above: Order Comment: Fan meade Type: BLOOD SPECIMENOrdering Facility: [facility] Address: [address] [place] [address] Performed By: #### 2 4323-8, 47023-6, 1988-03, ####[facility] LABORATORYCLIA [id number] [place] [address] [facility] [place] ED PROV NOTEon 11-21-2024 ED PROV NOTE Normal [facility] ED Triage Noteon 11-21-2024 ED Triage Note Normal [facility] HbA1c (Bld)on 11-21-2024 Average glucose Estimated from glycated hemoglobin (Bld) [Mass/Vol] 252 mg/dL Normal [facility] Comment on above: Order Comment: Fan meade Type: BLOOD SPECIMENOrdering Facility: [facility] Address: [address] [place] [address] Result Comment: eAG: (Estimated average glucose) is a calculated value from HgbA1c and is retail account representative of the average blood glucose level in the last 2-3 month period. Performed By: #### 5 5454-3 ####[facility] LABCLIA [id number] [facility] [id number] [place]#### 76437-9 ####[facility]ATORYCLIA [id number] [place] [id number] [facility] HbA1c (Bld) [Mass fraction] 10.4 % High 4.3-5.6 [facility] Comment on above: Order Comment: Fan meade Type: BLOOD SPECIMENOrdering Facility: [facility] Address: [address] [place] [address] Result Comment: [place] Diabetes Association guidelines indicate that patients with HgbA1c in the range 5.7-6.4% are at increased risk for development of diabetes, and intervention by lifestyle modification may be beneficial. HgbA1c greater or equal to 6.5% is considered diagnostic of diabetes. Performed By: #### 5 5454-3 ####[facility] LABCLIA [id number] [address] [place]#### 19864-7 ####[facility] LABORATORYCLIA [id number] [place], [place] [address] [place] [address] NT-proBNP SerPl-mCncon 11-21 Natriuretic peptide.B prohormone N-Terminal [Mass/Vol] 1157 pg/mL High <450 [facility] Comment on above: Order Comment: Speci men Type: BLOOD SPECIMENOrdering Facility: [facility] Address: [address] [place] [address] Performed By: #### 2 4323-8, 04970-3, 1988-03, ####[facility]ORATORYCLIA [id number] [address] Procalcitonin SerPl-mCncon 0 11-21-2024 Procalcitonin [Mass/Vol] 0.14 ng/mL High <0.09 [facility] Comment on above: Order Comment: Speci men Type: BLOOD SPECIMENOrdering Facility: [facility] Address: [address] [place] [address] Result Comment: For a guided interpretation of test results, please visit the Change in Procalcitonin Calculator, [email or web address]. Performed By: #### 2 4323-8, 20195-8, 1988-03, ####[facility]ORATORYCLIA [id number] [place] [id number] [facility] SEPSIS LACTATE W/ REFLEX (IN ITIAL)on 11-21-2024 Lactate [Moles/Vol] 2.2 mmol/L High 0.5-2.0 [facility] Comment on above: Order Comment: Speci men Type: BLOOD SPECIMENOrdering Facility: [facility] Address: [address] [place] [address] Performed By: #### S LACTR ####[facility]ORATORYCLIA [id number] [place] [address] [place] XR ANKLE 3V AP/LAT/OBL RTon 11-21-2024 XR ANKLE 3V AP/LAT/OBL RT Normal [facility] CBC W Auto Differential pane l (Bld)on 11-19-2024 Basophils (Bld) [#/Vol] 0.05 10*3/uL Normal <0.11 [facility] Comment on above: Order Comment: Speci men Type: BLOOD SPECIMENOrdering Facility: [facility] Address: [address] [place] [address] Performed By: #### 5 7021-8 ####[facility] LABCLIA [id number] [place] [address] [place] Basophils/100 WBC (Bld) 0.5 % Normal [facility] Comment on above: Order Comment: Speci men Type: BLOOD SPECIMENOrdering Facility: [facility] Address: [address] [place] [address] Performed By: #### 5 7021-8 ####[facility] LABCLIA [id number] [place] [address] [place] Differential cell count method Nom (Bld) Auto Normal [facility] Comment on above: Order Comment: Speci men Type: BLOOD SPECIMENOrdering Facility: [facility] Address: [address] [place] [address] Performed By: #### 5 7021-8 ####[facility] LABCLIA [id number] [place] [address] [place] Eosinophils (Bld) [#/Vol] 0.12 10*3/uL Normal <0.46 [facility] Comment on above: Order Comment: Speci men Type: BLOOD SPECIMENOrdering Facility: [facility] Address: [address] [place] [address] Performed By: #### 5 7021-8 ####[facility] LABCLIA [id number] [place] [address] [place] Eosinophils/100 WBC (Bld) 1.3 % Normal [facility] Comment on above: Order Comment: Speci men Type: BLOOD SPECIMENOrdering Facility: [facility] Address: [address] [place] [address] Performed By: #### 5 7021-8 ####[facility] LABCLIA [id number] [place] [address] [place] Erythrocyte distribution width (RBC) [Ratio] 14.8 % Normal 11.5-15.0 [facility] Comment on above: Order Comment: Speci men Type: BLOOD SPECIMENOrdering Facility: [facility] Address: [address] [place] [address] Performed By: #### 5 7021-8 ####[facility] LABCLIA [id number] [place] [address] [place] Hematocrit (Bld) [Volume fraction] 35.8 % Low 36.0-46.0 [facility] Comment on above: Order Comment: Speci men Type: BLOOD SPECIMENOrdering Facility: [facility] Address: [address] [place] [address] Performed By: #### 5 7021-8 ####[facility] LABCLIA [id number] [place] [address] [place] Hemoglobin (Bld) [Mass/Vol] 11.5 g/dL Normal 11.5-15.5 [facility] Comment on above: Order Comment: Speci men Type: BLOOD SPECIMENOrdering Facility: [facility] Address: [address] [place] [address] Performed By: #### 5 7021-8 ####[facility] LABCLIA [id number] [place] [address] [place] Immature granulocytes (Bld) [#/Vol] 0.07 10*3/uL Normal <0.10 [facility] Comment on above: Order Comment: Speci men Type: BLOOD SPECIMENOrdering Facility: [facility] Address: [address] [place] [address] Performed By: #### 5 7021-8 ####[facility] LABCLIA [id number] [place] [address] [place] Immature granulocytes/100 WBC (Bld) 0.7 % Normal [facility] Comment on above: Order Comment: Speci men Type: BLOOD SPECIMENOrdering Facility: [facility] Address: [address] [place] [address] Performed By: #### 5 7021-8 ####[facility] LABCLIA [id number] [place] [address] [place] Lymphocytes (Bld) [#/Vol] 1.19 10*3/uL Normal 1.00-4.00 [facility] Comment on above: Order Comment: Speci men Type: BLOOD SPECIMENOrdering Facility: [facility] Address: [address] [place] [address] Performed By: #### 5 7021-8 ####[facility] LABCLIA [id number] [place] [address] [place] Lymphocytes/100 WBC (Bld) 12.7 % Normal [facility] Comment on above: Order Comment: Speci men Type: BLOOD SPECIMENOrdering Facility: [facility] Address: [address] [place] [address] Performed By: #### 5 7021-8 ####[facility] LABCLIA [id number] [place] [address] [place] MCH (RBC) [Entitic mass] 28.0 pg Normal 26.0-34.0 [facility] Comment on above: Order Comment: Speci men Type: BLOOD SPECIMENOrdering Facility: [facility] Address: [address] [place] [address] Performed By: #### 5 7021-8 ####[facility] LABCLIA [id number] [place] [address] [place] MCHC (RBC) [Mass/Vol] 32.1 g/dL Normal 30.5-36.0 [facility] Comment on above: Order Comment: Speci men Type: BLOOD SPECIMENOrdering Facility: [facility] Address: [address] [place] [address] Performed By: #### 5 7021-8 ####[facility] LABCLIA [id number] [place] [address] [place] MCV (RBC) [Entitic vol] 87.1 fL Normal 80.0-100.0 [facility] Comment on above: Order Comment: Speci men Type: BLOOD SPECIMENOrdering Facility: [facility] Address: [address] [place] [address] Performed By: #### 5 7021-8 ####[facility] LABCLIA [id number] [place] [address] [place] Monocytes (Bld) [#/Vol] 0.67 10*3/uL Normal <0.87 [facility] Comment on above: Order Comment: Speci men Type: BLOOD SPECIMENOrdering Facility: [facility] Address: [address] [place] [address] Performed By: #### 5 7021-8 ####[facility] LABCLIA [id number] [place] [address] [place] Monocytes/100 WBC (Bld) 7.1 % Normal [facility] Comment on above: Order Comment: Speci men Type: BLOOD SPECIMENOrdering Facility: [facility] Address: [address] [place] [address] Performed By: #### 5 7021-8 ####[facility] LABCLIA [id number] [place] [address] [place] Neutrophils (Bld) [#/Vol] 7.29 10*3/uL Normal 1.45-7.50 [facility] Comment on above: Order Comment: Speci men Type: BLOOD SPECIMENOrdering Facility: [facility] Address: [address] [place] [address] Performed By: #### 5 7021-8 ####[facility] LABIA [id number] [place] [address] [place] Neutrophils/100 WBC (Bld) 77.7 % Normal [facility] Comment on above: Order Comment: Speci men Type: BLOOD SPECIMENOrdering Facility: [facility] Address: [address] [place] [address] Performed By: #### 5 7021-8 ####[facility] LABIA [id number] [place] [address] [place] Nucleated RBC (Bld) [#/Vol] 10*3/uL Normal <0.01 [facility] Comment on above: Order Comment: Speci men Type: BLOOD SPECIMENOrdering Facility: [facility] Address: [address] [place] [address] Performed By: #### 5 7021-8 ####[facility] LABIA [id number] [place] [address] [place] Nucleated RBC/100 WBC (Bld) [Ratio] 0.0 /100 WBC Normal [facility] Comment on above: Order Comment: Speci men Type: BLOOD SPECIMENOrdering Facility: [facility] Address: [address] [place] [address] Performed By: #### 5 7021-8 ####[facility] LABIA [id number] [place] [address] [place] Platelet mean volume (Bld) [Entitic vol] 9.6 fL Normal 9.0-12.7 [facility] Comment on above: Order Comment: Speci men Type: BLOOD SPECIMENOrdering Facility: [facility] Address: [address] [place] [address] Performed By: #### 5 7021-8 ####[facility] LABCLIA [id number] [place] [address] [place] Platelets (Bld) [#/Vol] 405 10*3/uL High 150-400 [facility] Comment on above: Order Comment: Speci men Type: BLOOD SPECIMENOrdering Facility: [facility] Address: [address] [place] [address] Performed By: #### 5 7021-8 ####[facility] LABCLIA [id number] [place] [address] [place] RBC (Bld) [#/Vol] 4.11 10*6/uL Normal 3.90-5.20 [facility] Comment on above: Order Comment: Speci men Type: BLOOD SPECIMENOrdering Facility: [facility] Address: [address] [place] [address] Performed By: #### 5 7021-8 ####[facility]ITAL[facility] [id number] [place] [address] [place] WBC (Bld) [#/Vol] 9.39 10*3/uL Normal 3.70-11.00 [facility] Comment on above: Order Comment: Speci men Type: BLOOD SPECIMENOrdering Facility: [facility] Address: [address] [place] [address] Performed By: #### 5 7021-8 ####[facility] LABIA [id number] [place] [address] [place] Ferritin SerPl-mCncon 2024 Ferritin [Mass/Vol] 39.6 ng/mL Normal 14.7-205.1 [facility] Comment on above: Order Comment: Speci men Type: BLOOD SPECIMENOrdering Facility: [facility] Address: [address] [place] [address] Performed By: #### 5 0190-8, 2276-4 ####[facility] LABCLIA [id number] [place] [address] [place] Iron and Iron binding capaci ty panelon 11-19-2024 Iron [Mass/Vol] 65 ug/dL Normal 41-186 [facility] Comment on above: Order Comment: Speci men Type: BLOOD SPECIMENOrdering Facility: [facility] Address: [address] [place] [address] Performed By: #### 5 0190-8, 2276-4 ####[facility] LABIA [id number] [address] [place] Iron binding capacity [Mass/Vol] 392 ug/dL High 232-386 [facility] Comment on above: Order Comment: Speci men Type: BLOOD SPECIMENOrdering Facility: [facility] Address: [address] [place] [address] Performed By: #### 5 0190-8, 2276-4 ####[facility] LABIA [id number] [address] [place] Iron/TIBC [Molar ratio] 16.6 % Normal 15.0-57.0 [facility] Comment on above: Order Comment: Speci men Type: BLOOD SPECIMENOrdering Facility: [facility] Address: [address] [place] [address] Performed By: #### 5 0190-8, 2276-4 ####[facility] LABIA [id number] [address] [place] MR Ankle - right WO contrast on 11-19-2024 IMPRESSION: Nonspecific circumferential subcutaneous/soft tissue edema involving the distal leg and ankle. Muscle fatty changes and edema which may be related to disuse. Moderate midfoot osteoarthritis. No evidence of inflammatory arthritis. Principal Cloud Architect: PHU Transcribe Date/Time: Nov 19 2024 10:47A Dictated by : CHANDNI ZIMMERMAN MD This examination was interpreted and the report reviewed and electronically signed by: LAZARO OHARA MD on Nov 19 2024 1:28PM [facility] DIVISION OF RADIOLOGY * * *Final [...] DATE OF EXAM: Nov 19 2024 10:08AM M2 0164 - MRI ANKLE WO IVCON RT [...] midfoot osteoarthritis. No evidence of inflammatory arthritis. Principal Cloud Architect: PHU Transcribe Date/Time: Nov 19 2024 10:47A Dictated by : CHANDNI ZIMMERMAN MD This examination was interpreted and the report reviewed and electronically signed by: LAZARO OHARA MD on Nov 19 2024 1:28PM EST [facility] Radiology Study observation (narrative) [facility] MR Ankle - right WO contrast Ordered By: Ccf Provider on 11-19-2024 [facility] MRI ANKLE WO IVCON RTon MRI ANKLE WO IVCON RT * * *Final Report* * * DATE OF EXAM: Nov 19 2024 10:08AM [facility] 0164 - MRI ANKLE WO IVCON [...] midfoot osteoarthritis. No evidence of inflammatory arthritis. Principal Cloud Architect: PHU Transcribe Date/Time: Nov 19 2024 10:47A Dictated by : CHANDNI ZIMMERMAN MD This examination was interpreted and the report reviewed and electronically signed by: LAZARO OHARA MD on Nov 19 2024 1:28PM EST [id number] Normal [facility] Zinc SerPl-mCncon 11-19-2024 Zinc [Mass/Vol] 55 ug/dL Low 60-120 [facility] Comment on above: Order Comment: Speci men Type: BLOOD SPECIMEN [facility] Address: [address] [place] [address] Result Comment: This test was developed, and its performance characteristics determined by the [facility] Department of Pathology and Laboratory Medicine. It has not been cleared or approved by the FDA. The [facility] Department of Pathology and Laboratory Medicine is regulated under CLIA as qualified to perform high-complexity testing. This test is used for clinical purposes. It should not be regarded as investigational or for research. Performed By: #### 2 132-9, 2276-4, 48841-3, 2284-8 #### [facility] CLIA [id number] [address] [place], [place] [address] [address] [place] [facility] 11-06-2024 CNPN Telephone ([facility]) CAROLYUSUF ([id number]) 1935 F [place] Date Time Provider Department 11/06/24 WILLIE KAUR [facility] During your visit today, we recorded the [...] this patient by: CAREGIVER José Miguel Swanson [facility] Problem List As Of Date 11/06/2024 [...] 07/17/2013 05/11/2016 (more content not included)... Normal [facility] CNPNon 11-05-2024 CNPN Telephone ([facility]) CAROLYUSUF ([id number]) 1935 F [place] Date Time Provider Department 11/05/24 GRUPO MENDEZ HEMLUL During your visit today, we recorded the following information about you: Grupo Mendez MD 11/05/2024 6:55 PM Signed Patient has secondary leukocytosis in the setting of highly elevated sed rate, RUBEN 1:320 titer, positive STONE GANG SAWYER Hematology work-up was essentially negative highlighting concern for rheumatological disease. Patient is leaving to [place] for 2 weeks I will schedule lab [...] BLOOD COUNT AND DIFFERENTIAL [SQCBCDIF] Order #: [id number] FUTURE IRON AND TIBC [SQIRON] Order #: [id number] FUTURE FERRITIN [SQFERR] Order #: [id number] FUTURE ZINC BLD [SQZINC] Order #: [id number] FUTURE Prescriptions as of 11/05/2024 - meloxicam (MOBIC) 15 mg tablet TAKE 1 TABLET BY MOUTH ONCE DAILY NEEDED FOR PAIN. DO NOT COMBINE WITH DICLOFENAC GEL - traZODone (DESYREL) 50 mg tablet Take 1 tablet by mouth at bedtime as needed for sedation. - blood sugar diagnostic (StarMaker InteractiveTOUCH ULTRA TEST) test strip Test blood sugar [...] this patient by: CAREGIVER José Miguel Swanson [facility] Problem List As Of Date 11/05/2024 [...] [N18.9] 05/11/2016 (more content not included)... Normal [facility] CNOVon 11-01-2024 CNOV Office Visit ([facility] ) YUSUF MEDINA ([id number]) 1935 [place] Date Time Provider Department 11/01/24 [...] L REMV CATARACT EXTRACAP,INSERT LENS Bilateral 2020 [facility] Family History: FAMILY HISTORY Problem Relation Age of Onset None Brother None Sister None Brother Medications: Current Outpatient Medications Medication Sig meloxicam (MOBIC) 15 mg tablet TAKE 1 TABLET BY MOUTH ONCE DAILY NEEDED FOR PAIN. DO NOT COMBINE WITH DICLOFENAC GEL traZODone (DESYREL) 50 mg tablet Take 1 tablet by mouth at bedtime as needed for sedation. blood sugar diagnostic (Private.MeUCH ULTRA TEST) test strip Test blood sugar [...] Plan: Rig (more content not included)... Normal [facility] CRP SerPl-ncon 11-01-2024 CRP [Mass/Vol] 0.3 mg/dL Normal <0.9 [facility] Comment on above: Order Comment: Speci men Type: BLOOD SPECIMEN [facility] Address: [address] [place] [address] Performed By: #### 2 132-9, 2276-4, 12585-0, 8 #### [facility] CLIA [id number] [address] [place] [address] [place] ESR Westergren method (Bld) [Velocity]on 11-01-2024 ESR (Bld) [Velocity] 36 mm/h [facility] 0-20 [facility] Comment on above: Order Comment: Speci men Type: BLOOD SPECIMEN [facility] Address: [address] [place] [address] Performed By: #### 2 132-9, 2276-4, 96985-4, 8 #### [facility] CLIA [id number] [address] [place] [address] [place] XR ANKLE 3V [...] planus and mild to moderate midfoot osteoarthritis. Principal Cloud Architect: ReSnap Transcribe Date/Time: Nov 02 2024 11:17A Dictated by : SHARYN UMANA MD This examination was interpreted and the report reviewed and electronically signed by: SHARYN UMANA MD on Nov 02 2024 11:20AM EST [id number] Normal [facility] XR FOOT 3V AP/LAT/OBL RTon 1 [...] planus and mild to moderate midfoot osteoarthritis. Principal Cloud Architect: PHU Transcribe Date/Time: Nov 02 2024 11:17A Dictated by : SHARYN UMANA MD This examination was interpreted and the report reviewed and electronically signed by: SHARYN UMANA MD on Nov 02 2024 11:20AM EST [id number] Normal [facility] CNOVon 10-29-2024 CNOV Office Visit ([facility] ) YUSUF MEDINA ([id number]) 1935 F [place] Date Time Provider Department 10/29/24 4:20 PM AB BENSON [facility] During your visit today, we recorded the following information about you: Temperature Pulse Blood pressure Weight 99.3 degrees 66/minute 159/72 48 kg Ab Benson MD 11/04/2024 7:29 PM Signed This note was created using PonoMusicriter. Subjective Yusuf Medina is a 88 year [...] needed for sedation. - blood sugar diagnostic (Private.MeUCH ULTRA TEST) test strip Test blood sugar [...] this patient by: CAREGIVER José Miguel Swanson [facility] Problem List As Of Date 10/29/2024 [...] intervert*10/31/2010 Osteoart (more content not included)... Normal [facility] CNOVon 09-20-2024 CNOV Office Visit ([facility] ) YUSUF MEDINA ([id number]) 1935 [place] Date Time Provider Department 09/20/24 [...] L REMV CATARACT EXTRACAP,INSERT LENS Bilateral 2020 [facility] Family History: FAMILY HISTORY Problem Relation [...] malleolus NTTP (more content not included)... Normal [facility] BCR/ABL1 P210 AND P190 DIAGN OSTIC PCR BLOODon 09-19-2024 BCR/ABL1 P210 AND P190 DIAGNOSTIC PCR BLOOD RESULT BCR/ABL1 p210 and p190 Diagnostic PCR Laboratory Accession Number: [id number] Sample Type: Peripheral Blood Result: NOT DETECTED; [...] this sample, and cDNA prepared by reverse advanced registered nurse. Real time PCR was performed in two separate reactions, using primers for e13a2 and/or e14a2 BCR/ABL1 fusion transcripts and ABL1 transcripts for p210 detection and primers for e1a2 BCR/ABL1 fusion transcripts and ABL1 transcripts for p190 detection (Quantide[employer] BCR/ABL IS assay, [employer], [place], [place]). This assay has a limit [...] and its performance characteristics determined by [facility]'s Pathology and Laboratory Medicine Department. It has not been cleared or approved by the FDA. [facility] Pathology and Laboratory Medicine Department is regulated under CLIA as certified to perform high-complexity testing. This test is used for clinical purposes. It should not be regarded as investigational or for research. Testing and interpretation performed at [facility], [address] [place] [address]. CLIA Number: [id number] As reviewed by José Miguel Persaud MD [facility] METHYLMALONIC ACIDon 024 Methylmalonate [Moles/Vol] 0.29 umol/L [facility] - 0.40 umol/L [facility] Comment on above: This test was deviselao ped, and its performance characteristics determined by the [facility] Department of Pathology and Laboratory Medicine. It has not been cleared or approved by the FDA. The [facility] Department of Pathology and Laboratory Medicine is regulated under CLIA as qualified to perform high-complexity testing. This test is used for clinical purposes. It should not be regarded as investigational or for research. Methylmalonate [Moles/Vol]on 09-19-2024 Interpretation and review of laboratory results Normal [facility] XR CALCANEUS 2V AXIAL/LAT RT on [...] planus with calcaneal enthesophytes and bone demineralization. Principal Cloud Architect: PSCB Transcribe Date/Time: Sep 21 2024 11:34A Dictated by : ALEJANDRA MONCADA MD This examination was interpreted and the report reviewed and electronically signed by: ALEJANDRA MONCADA MD on Sep 21 2024 11:39AM EST [id number] Normal [facility] XR FOOT 3V AP/LAT/OBL RTon 1 [...] toes with hammertoe deformities. 4. Calcaneal enthesophytes. Principal Cloud Architect: PHU Transcribe Date/Time: Sep 21 2024 11:40A Dictated by : ALEJANDRA MONCADA MD This examination was interpreted and the report reviewed and electronically signed by: ALEJANDRA MONCADA MD on Sep 21 2024 11:59AM EST [id number] Normal [facility] CCP ANTIBODY IGGOrdered By: Robin Zavala on 09-18-2024 Cyclic citrullinated peptide IgG Qn NINF [facility] CNPNon 09-18-2024 CNPN Telephone ([facility]) YUSUF MEDINA ([id number]) 1935 F [facility] Date Time Provider Department 09/18/24 GRUPO MENDEZ HEMAST During your visit today, we recorded the following information about you: Grupo Mendez MD 09/18/2024 9:19 PM Signed Results were reviewed. I spoke with [id number] Demetria about suspicion for calcaneal bone fracture. [...] initial encounter [S92.001A] Order(s):CONSULT PANEL TO ORTHOPAEDICS [919255] Order #: [id number]: 1 FUTURE Prescriptions as of 09/18/2024 - traZODone (DESYREL) 50 mg tablet Take 1 tablet by mouth at bedtime as needed for sedation. - blood sugar diagnostic (Private.MeUCH ULTRA TEST) test strip Test blood sugar [...] this patient by: CAREGIVER José Miguel Swanson [facility] Problem List As Of Date 09/18/2024 [...] dependent (NIDDM*03/07 (more content not included)... Normal [facility] COPPER BLOODon 09-18-2024 Copper [Mass/Vol] 128 ug/dL 80 - 155 ug/dL [facility] Comment on above: This test was develo ped, and its performance characteristics determined by the [facility] Department of Pathology and Laboratory Medicine. It has not been cleared or approved by the FDA. The [facility] Department of Pathology and Laboratory Medicine is regulated under CLIA as qualified to perform high-complexity testing. This test is used for clinical purposes. It should not be regarded as investigational or for research. Interpretation and review of laboratory results Normal [facility] Cyclic citrullinated peptide IgG QnOrdered By: Robin Zavala on 09-18-2024 CCP Antibody IgG Qualitative Negative Negative [facility] Interpretation and review of laboratory results Normal [facility] This test is used as aid in diagnosis of Rheumatoid arthritis (RA). A negative result cannot rule out RA where clinically suspected. Clinical correlation is required. The following results were obtained with an [employer] QUANTA Lite CCP IgG JOE. Cyclic Citrullinated Peptide IgG values obtained with different manufacturers' assay methods may not be used interchangeably. The magnitude of the reported IgG levels cannot be correlated to an endpoint titer. [facility] FERRITINon 09-18-2024 Ferritin [Mass/Vol] 59.9 ng/mL 14.7 - 2 05.1 ng/mL [facility] FOLATE, SERUMon 09-18-2024 Folate [Mass/Vol] 18.8 ng/mL 4.7 - PINF ng/mL [facility] Ferritin [Mass/Vol]on 2023 Interpretation and review of laboratory results Normal [facility] HOMOCYSTEINEon 09-18-2024 Homocysteine [Moles/Vol] 21.2 umol/L High NINF - 15.1 umol/L [facility] Homocysteine [Moles/Vol]on 11-18-2023 Interpretation and review of laboratory results Abnormal [facility] Iron and Iron binding capaci ty panelon 09-18-2024 Interpretation and review of laboratory results Abnormal [facility] Iron [Mass/Vol] 29 ug/dL Low 41 - 186 ug/dL [facility] Iron binding capacity [Mass/Vol] 407 ug/dL High 232 - 386 ug/dL [facility] Iron/TIBC [Molar ratio] 7.1 % Low 15.0 - 57.0 % [facility] No Panel InformationOrdered By: Cheryl Sinha on 09-18-2024 [facility] No Panel Informationon 09-18 Interpretation and review of laboratory results Normal [facility] Nuclear Ab IA Ql (S)Ordered By: Lien Matson on 09-18-2024 RUBEN Scr Qual Positive Abnormal Negative [facility] Comment on above: The qualitative anti nuclear antibody screen test performed using the following antigens: dsDNA, Chromatin, Ribosomal P, SS-A 60, SS-A 52, SS-B, Sm, SmRNP, STONE GANG SAWYER A, STONE GANG SAWYER 68, Scl-70, Nadege-1, and Centromere B. Methodology: Multiplex flow immunoassay. Interpretation and review of laboratory results Abnormal [facility] URIC ACIDon 09-18-2024 Urate [Mass/Vol] 5.6 mg/dL 2.5 - 6.6 mg/dL [facility] US DVT LOWER RTon 09-18-2024 US DVT LOWER RT Normal [facility] Lower extremity vein - ri [facility] 09-18-2024 IMPRESSION: Negative study for proximal DVT in the right lower extremity. Negative study for calf DVT in the right lower extremity. Negative study for superficial thrombophlebitis in the imaged segments of the right lower extremity. Principal Cloud Architect: PHU Transcribe Date/Time: Sep 18 2024 9:14A Dictated by : ZACH THOMPSON MD This examination was interpreted and the report reviewed and electronically signed by: ZACH THOMPSON MD on Sep 18 2024 9:20AM [facility] * * *Final Report* * * DATE OF EXAM: Sep 18 2024 8:44AM [facility] [place] D[place] LOWER RT / [...] spontaneous respirophasic flow. Normal response to augmentation. [facility] Provider, Kalyan Rowley - 09/18/2024 * * *Final Report* * * DATE OF EXAM: Sep 18 2024 8:44AM [facility] [place] DVT LOWER RT / [...] imaged segments of the right lower extremity. Principal Cloud Architect: PHU Transcribe Date/Time: Sep 18 2024 9:14A Dictated by : ZACH THOMPSON MD This examination was interpreted and the report reviewed and electronically signed by: ZACH THOMPSON MD on Sep 18 2024 9:20AM EST [facility] Radiology Study observation (narrative) [facility] US Lower extremity vein - ri ghtOrdered By: Ccf Provider on 09-18-2024 [facility] Urate [Mass/Vol]on Interpretation and review of laboratory results Normal [facility] VITAMIN B12on 09-18-2024 Cobalamin (Vitamin B12) [Mass/Vol] 433 pg/mL 232 - 1245 pg/mL [facility] XR Ankle - right AP and Late ral and obliqueon 09-18-2024 IMPRESSION: Marked right ankle soft tissue swelling. Osteopenia and suspicion of nondisplaced calcaneus fracture. Degenerative changes, calcaneal enthesophytes, and pes planus. Principal Cloud Architect: PHU Transcribe Date/Time: Sep 18 2024 12:20P Dictated by : GERTRUDIS MONCADA MD This examination was interpreted and the report reviewed and electronically signed by: GERTRUDIS MONCADA MD on Sep 18 2024 12:22PM [facility] DIVISION OF RADIOLOGY * * *Final [...] ankle. Atherosclerotic calcifications. DIVISION OF RADIOLOGY Provider, [facility] - 09/18/2024 * * *Final [...] Degenerative changes, calcaneal enthesophytes, and pes planus. Principal Cloud Architect: [facility] Transcribe Date/Time: Sep 18 2024 12:20P Dictated by : GERTRUDIS MONCADA MD This examination was interpreted and the report reviewed and electronically signed by: GERTRUDIS MONCADA MD on Sep 18 2024 12:22PM EST [facility] XR Ankle - right AP and Late ral and obliqueOrdered By: Ccf Provider on 09-18-2024 [facility] ZINC BLDOrdered By: Cheryl rodriguez on 09-18-2024 Zinc [Mass/Vol] 55 ug/dL Low 60 - 120 ug/dL [facility] Comment on above: This test was develo ped, and its performance characteristics determined by the [facility] Department of Pathology and Laboratory Medicine. It has not been cleared or approved by the FDA. The [facility] Department of Pathology and Laboratory Medicine is regulated under CLIA as qualified to perform high-complexity testing. This test is used for clinical purposes. It should not be regarded as investigational or for research. Zinc [Mass/Vol]Ordered By: Roxane Sinha on 09-18-2024 Interpretation and review of laboratory results Abnormal [facility] RUBEN BY IFA SCREENon 09-17-20 24 Nuclear Ab pattern (S) [Interp] Nuclear homogeneous Normal [facility] Comment on above: Order Comment: Speci men Type: BLOOD SPECIMEN Ordering Facility: [facility] Address: [address] [place] [address] Performed By: #### 2 132-9, 6-4, 16379-1, 2284-06 #### [facility] CLIA [id number] [address] [place] [address] [place] Nuclear Ab Ql (S) Positive Abnormal Negative [facility] Comment on above: Order Comment: Speci men Type: BLOOD SPECIMEN Ordering Facility: [facility] Address: [address] [place] [address] Result Comment: Anti -nuclear antibody test is used as an aid in diagnosis of systemic autoimmune diseases. Where positive and clinically warranted, follow-up using disease-specific testing is recommended. Low positive titers are not uncommon with advanced age, certain chronic infections, and malignancies among others. Test methodology: Indirect fluorescence immunoassay (IFA) using HEp-2 cells. 1:320 Performed By: #### 2 132-9, 6-4, 84286-8, 2284-06 #### [facility] CLIA [id number] [address] [place] [address] [place] BCR/ABL1 P190 NCN P210 % IS MR FRYon 09-17-2024 BCR/ABL1 P190 NCN(%BCR/ABL1:ABL1) N/A Normal [facility] Comment on above: Order Comment: Speci men Type: BLOOD SPECIMENOrdering Facility: [facility] Address: [address] [place] [address] Performed By: #### B CRPB1 ####[facility] [id number] [place] [address] [place]#### ISMRNCNPB ####[facility] [id number] [place] [address] [place] BCR/ABL1 P210 %IS N/A Normal [facility] Comment on above: Order Comment: Speci men Type: BLOOD SPECIMENOrdering Facility: [facility] Address: [address] [place] [address] Performed By: #### B CRPB1 ####[facility] LIMSCLIA [id number] [place] [address] [place]#### ISMRNCNPB ####[facility] [id number] [place] [address] [place] BCR/ABL1 P210 MR N/A Normal [facility] Comment on above: Order Comment: Speci men Type: BLOOD SPECIMENOrdering Facility: [facility] Address: [address] [place] [address] Performed By: #### B CRPB1 ####[facility] LIMSCLIA [id number] [place] [address] [place]#### ISMRNCNPB ####[facility] [id number] [place] [address] [place] BCR/ABL1 P210 AND P190 DIAGN OSTIC PCR BLOODon 09-17-2024 BCR/ABL1 P210 AND P190 DIAGNOSTIC PCR BLOOD RESULT Normal [facility] Comment on above: Order Comment: Speci men Type: BLOOD SPECIMEN Ordering Facility: [facility] Address: [address], [place] [address] Result Comment: BCR/ ABL1 p210 and p190 Diagnostic PCR Laboratory Accession Number: [id number] Sample Type: Peripheral Blood Result: NOT DETECTED; [...] this sample, and cDNA prepared by reverse advanced registered nurse. Real time PCR was performed in two separate reactions, using primers for e13a2 and/or e14a2 BCR/ABL1 fusion transcripts and ABL1 transcripts for p210 detection and primers for e1a2 BCR/ABL1 fusion transcripts and ABL1 transcripts for p190 detection (QuantideX BCR/ABL IS assay, [employer], [place], [place]). This assay has a limit [...] and its performance characteristics determined by [facility]'s Pathology and Laboratory Medicine Department. It has not been cleared or approved by the FDA. [facility]'s Pathology and Laboratory Medicine Department is regulated under CLIA as certified to perform high-complexity testing. This test is used for clinical purposes. It should not be regarded as investigational or for research. Testing and interpretation performed at [facility], [address] [place] [address]. CLIA Number: [id number] As reviewed by José Miguel Persaud MD Performed By: #### B CRPB1 #### [facility] CLIA [id number] [address] [place] [address] #### ISMRNCNPB #### [facility] CLIA [id number] [address] [place] [address] [place] [facility] CBC W Ordered Manual Differe ntial panel (Bld)on 09-17-2024 Basophils (Bld) [#/Vol] 0.03 10*3/uL [facility] Basophils/100 WBC (Bld) 0.3 % [facility] Differential cell count method Nom (d) Auto [facility] Eosinophils (Bld) [#/Vol] 0.07 10*3/uL [facility] Eosinophils/100 WBC (Bld) 0.7 % [facility] Erythrocyte distribution width (RBC) [Ratio] 14.2 % 11.5 - 15.0 % [facility] Hematocrit (d) [Volume fraction] 35.2 % Low 36.0 - 46.0 % [facility] Hemoglobin (Bld) [Mass/Vol] 11.4 g/dL Low 11.5 - 15.5 g/dL [facility] Immature granulocytes (Bld) [#/Vol] 0.06 10*3/uL [facility] Immature granulocytes/100 WBC (Bld) 0.6 % [facility] Interpretation and review of laboratory results Abnormal [facility] Lymphocytes (Bld) [#/Vol] 1.42 10*3/uL [facility] Lymphocytes/100 WBC (Bld) 15.1 % [facility] MCH (RBC) [Entitic mass] 28.6 pg 26.0 - 34.0 pg [facility] MCHC (RBC) [Mass/Vol] 32.4 g/dL 30.5 - 36.0 g/dL [facility] MCV (RBC) [Entitic vol] 88.2 fL 80.0 - 100.0 fL [facility] Monocytes (Bld) [#/Vol] 0.52 10*3/uL [facility] Monocytes/100 WBC (Bld) 5.5 % C [facility] Neutrophils (Bld) [#/Vol] 7.33 10*3/uL [facility] Neutrophils/100 WBC (Bld) 77.8 % [facility] Nucleated RBC (Bld) [#/Vol] [facility] Nucleated RBC/100 WBC (Bld) [Ratio] 0.0 % /100 WBC [facility] Platelet mean volume (Bld) [Entitic vol] 9.8 fL 9.0 - 12.7 fL [facility] Platelets (Bld) [#/Vol] 409 10*3/uL High [facility] RBC (Bld) [#/Vol] 3.99 10*6/uL 3.90 - 5.2 0 m/uL [facility] WBC (Bld) [#/Vol] 9.43 10*3/uL [facility] This is an appended report. These results have been appended to a previously verified report. [facility] Basophils (Bld) [#/Vol] 0.03 10*3/uL Normal <0.11 [facility] Comment on above: Order Comment: Speci men Type: BLOOD SPECIMEN Ordering Facility: [facility] Address: [address] [place] [address] Performed By: #### B CRPB1 #### [facility] CLIA [id number] [address] [place], [place] [address] [address] [place] #### ISMRNCNPB #### [facility] CLIA [id number] [address] [place] [address] [place] Basophils/100 WBC (Bld) 0.3 % Normal [facility] Comment on above: Order Comment: Speci men Type: BLOOD SPECIMEN Ordering Facility: [facility] Address: [address] [place] [address] Performed By: #### B CRPB1 #### [facility] CLIA [id number] [address] [place] [address] [place] #### ISMRNCNPB #### [facility] CLIA [id number] [address] [place] [address] [place] Differential cell count method Nom (Bld) Auto Normal [facility] Comment on above: Order Comment: Speci men Type: BLOOD SPECIMEN Ordering Facility: [facility] Address: [address] [place] [address] Performed By: #### B CRPB1 #### [facility] CLIA [id number] [address] [place] [address] [place] #### ISMRNCNPB #### [facility] CLIA [id number] [address] [place] [address] [place] Eosinophils (Bld) [#/Vol] 0.07 10*3/uL Normal <0.46 [facility] Comment on above: Order Comment: Speci men Type: BLOOD SPECIMEN Ordering Facility: [facility] Address: [address] [place] [address] Performed By: #### B CRPB1 #### [facility] CLIA [id number] [address] [place] [address] [place] #### ISMRNCNPB #### [facility] CLIA [id number] [address] [place] [address] [place] Eosinophils/100 WBC (Bld) 0.7 % Normal [facility] Comment on above: Order Comment: Speci men Type: BLOOD SPECIMEN Ordering Facility: [facility] Address: [address] [place] [address] Performed By: #### B CRPB1 #### [facility] CLIA [id number] [address] [place] [address] [place] #### ISMRNCNPB #### [facility] CLIA [id number] [address] [place] [address] [place] Erythrocyte distribution width (RBC) [Ratio] 14.2 % Normal 11.5-15.0 [facility] Comment on above: Order Comment: Speci men Type: BLOOD SPECIMEN Ordering Facility: [facility] Address: [address] [place] [address] Performed By: #### B CRPB1 #### [facility] CLIA [id number] [address] [place] [address] [place] #### ISMRNCNPB #### [facility] CLIA [id number] [address] [place] [address] [place] Hematocrit (Bld) [Volume fraction] 35.2 % Low 36.0-46.0 [facility] Comment on above: Order Comment: Speci men Type: BLOOD SPECIMEN Ordering Facility: [facility] Address: [address] [place] [address] Performed By: #### B CRPB1 #### [facility] CLIA [id number] [address] [place] [address] [place] #### ISMRNCNPB #### [facility] CLIA [id number] [address] [place] [address] [place] Hemoglobin (Bld) [Mass/Vol] 11.4 g/dL Low 11.5-15.5 [facility] Comment on above: Order Comment: Speci men Type: BLOOD SPECIMEN Ordering Facility: [facility] Address: [address] [place] [address] Performed By: #### B CRPB1 #### [facility] CLIA [id number] [address] [place] [address] [place] #### ISMRNCNPB #### [facility] CLIA [id number] [address] [place] [address] [place] Immature granulocytes (Bld) [#/Vol] 0.06 10*3/uL Normal <0.10 [facility] Comment on above: Order Comment: Speci men Type: BLOOD SPECIMEN Ordering Facility: [facility] Address: [address] [place] [address] Performed By: #### B CRPB1 #### [facility] CLIA [id number] [address] [place] [address] [place] #### ISMRNCNPB #### [facility] CLIA [id number] [address] [place] [address] [place] Immature granulocytes/100 WBC (Bld) 0.6 % Normal [facility] Comment on above: Order Comment: Speci men Type: BLOOD SPECIMEN Ordering Facility: [facility] Address: [address] [place] [address] Performed By: #### B CRPB1 #### [facility] CLIA [id number] [address] [place] [address] [place] #### ISMRNCNPB #### [facility] CLIA [id number] [address] [place] [address] [place] Lymphocytes (Bld) [#/Vol] 1.42 10*3/uL Normal 1.00-4.00 [facility] Comment on above: Order Comment: Speci men Type: BLOOD SPECIMEN Ordering Facility: [facility] Address: [address] [place] [address] Performed By: #### B CRPB1 #### [facility] CLIA [id number] [address] [place] [address] [place] #### ISMRNCNPB #### [facility] CLIA [id number] [address] [place] [address] [place] Lymphocytes/100 WBC (Bld) 15.1 % Normal [facility] Comment on above: Order Comment: Speci men Type: BLOOD SPECIMEN Ordering Facility: [facility] Address: [address] [place] [address] Performed By: #### B CRPB1 #### [facility] CLIA [id number] [address] [place] [address] [place] #### ISMRNCNPB #### [facility] CLIA [id number] [address] [place] [address] [place] MCH (RBC) [Entitic mass] 28.6 pg Normal 26.0-34.0 [facility] Comment on above: Order Comment: Speci men Type: BLOOD SPECIMEN Ordering Facility: [facility] Address: [address] [place] [address] Performed By: #### B CRPB1 #### [facility] CLIA [id number] [address] [place] [address] [place] #### ISMRNCNPB #### [facility] CLIA [id number] [address] [place] [address] [place] MCHC (RBC) [Mass/Vol] 32.4 g/dL Normal 30.5-36.0 [facility] Comment on above: Order Comment: Speci men Type: BLOOD SPECIMEN Ordering Facility: [facility] Address: [address] [place] [address] Performed By: #### B CRPB1 #### [facility] CLIA [id number] [address] [place] [address] [place] #### ISMRNCNPB #### [facility] CLIA [id number] [address] [place] [address] [place] MCV (RBC) [Entitic vol] 88.2 fL Normal 80.0-100.0 [facility] Comment on above: Order Comment: Speci men Type: BLOOD SPECIMEN Ordering Facility: [facility] Address: [address] [place] [address] Performed By: #### B CRPB1 #### [facility] CLIA [id number] [address] [place] [address] [place] #### ISMRNCNPB #### [facility] CLIA [id number] [address] [place] [address] [place] Monocytes (Bld) [#/Vol] 0.52 10*3/uL Normal <0.87 [facility] Comment on above: Order Comment: Speci men Type: BLOOD SPECIMEN Ordering Facility: [facility] Address: [address] [place] [address] Performed By: #### B CRPB1 #### [facility] CLIA [id number] [address] [place] [address] [place] #### ISMRNCNPB #### [facility] CLIA [id number] [address] [place] [address] [place] Monocytes/100 WBC (Bld) 5.5 % Normal [facility] Comment on above: Order Comment: Speci men Type: BLOOD SPECIMEN Ordering Facility: [facility] Address: [address] [place] [address] Performed By: #### B CRPB1 #### [facility] CLIA [id number] [address] [place] [address] [place] #### ISMRNCNPB #### [facility] CLIA [id number] [address] [place] [address] [place] Neutrophils (Bld) [#/Vol] 7.33 10*3/uL Normal 1.45-7.50 [facility] Comment on above: Order Comment: Speci men Type: BLOOD SPECIMEN Ordering Facility: [facility] Address: [address] [place] [address] Performed By: #### B CRPB1 #### [facility] CLIA [id number] [address] [place] [address] [place] #### ISMRNCNPB #### [facility] CLIA [id number] [address] [place] [address] [place] Neutrophils/100 WBC (Bld) 77.8 % Normal [facility] Comment on above: Order Comment: Speci men Type: BLOOD SPECIMEN Ordering Facility: [facility] Address: [address] [place] [address] Performed By: #### B CRPB1 #### [facility] CLIA [id number] [address] [place] [address] [place] #### ISMRNCNPB #### [facility] CLIA [id number] [address] [place] [address] [place] Nucleated RBC (Bld) [#/Vol] 10*3/uL Normal <0.01 [facility] Comment on above: Order Comment: Speci men Type: BLOOD SPECIMEN Ordering Facility: [facility] Address: [address] [place] [address] Performed By: #### B CRPB1 #### [facility] CLIA [id number] [address] [place] [address] [place] #### ISMRNCNPB #### [facility] CLIA [id number] [address] [place] [address] [place] Nucleated RBC/100 WBC (Bld) [Ratio] 0.0 /100 WBC Normal [facility] Comment on above: Order Comment: Speci men Type: BLOOD SPECIMEN Ordering Facility: [facility] Address: [address] [place] [address] Performed By: #### B CRPB1 #### [facility] CLIA [id number] [address] [place] [address] [place] #### ISMRNCNPB #### [facility] CLIA [id number] [address] [place] [address] [place] Platelet mean volume (Bld) [Entitic vol] 9.8 fL Normal 9.0-12.7 [facility] Comment on above: Order Comment: Speci men Type: BLOOD SPECIMEN Ordering Facility: [facility] Address: [address] [place] [address] Performed By: #### B CRPB1 #### [facility] CLIA [id number] [address] [place] [address] [place] #### ISMRNCNPB #### [facility] CLIA [id number] [address] [place] [address] [place] Platelets (Bld) [#/Vol] 409 10*3/uL High 150-400 [facility] Comment on above: Order Comment: Speci men Type: BLOOD SPECIMEN Ordering Facility: [facility] Address: [address] [place] [address] Performed By: #### Mary CRPB1 #### [facility] CLIA [id number] [address] [place] [address] [place] #### ISMRNCNPB #### [facility] CLIA [id number] [address] [place] [address] [place] RBC (Bld) [#/Vol] 3.99 10*6/uL Normal 3.90-5.20 [facility] Comment on above: Order Comment: Speci men Type: BLOOD SPECIMEN Ordering Facility: [facility] Address: [address] [place] [address] Performed By: #### B CRPB1 #### [facility] CLIA [id number] [address] [place] [address] [place] #### ISMRNCNPB #### [facility] CLIA [id number] [address] [place] [address] [place] WBC (Bld) [#/Vol] 9.43 10*3/uL Normal 3.70-11.00 [facility] Comment on above: Order Comment: Speci men Type: BLOOD SPECIMEN Ordering Facility: [facility] Address: [address] [place] [address] Performed By: #### B CRPB1 #### [facility] CLIA [id number] [address] [place] [address] #### ISMRNCNPB #### [facility] CLIA [id number] [address] [place] [address] [place] CNOVSPon 09-17-2024 CNOVSP Visit (SP) Office (HEMAST) YUSUF MEDINA ([id number]) 1935 [address] [facility] [place] Date Time Provider Department 09/17/24 3:10 PM [...] office to be evaluated for leukocytosis. ASSESSMENT: (D70.021) Leukocytosis, unspecified type (primary encounter diagnosis) Comment: [...] L REMV CATARACT EXTRACAP,INSERT LENS Bilateral 2020 [facility] FAMILY HISTORY Problem Relation Age of [...] daily. pioglitazone (more content not included)... Normal [facility] COPPER BLOODon 09-17-2024 Copper [Mass/Vol] 128 ug/dL Normal 80-155 [facility] Comment on above: Order Comment: Speci men Type: BLOOD SPECIMEN Ordering Facility: [facility] Address: [address] [place] [address] Result Comment: This test was developed, and its performance characteristics determined by the [facility] Department of Pathology and Laboratory Medicine. It has not been cleared or approved by the FDA. The [facility] Department of Pathology and Laboratory Medicine is regulated under CLIA as qualified to perform high-complexity testing. This test is used for clinical purposes. It should not be regarded as investigational or for research. Performed By: #### 2 132-9, 6-4, 01808-0, 8 #### [facility] CLIA [id number] [address] [place] [address] [place] Centromere Ab IF Ql (S)on Centromere Ab Qn (S) <0.2 Normal <1.0 [facility] Comment on above: Order Comment: Speci men Type: BLOOD SPECIMEN Ordering Facility: [facility] Address: [address] [place] [address] Result Comment: Anti -centromere antibody is used as in aid in diagnosis of systemic sclerosis. Clinical correlation is required. Test Methodology: Multiplex flow immunoassay. Performed By: #### 2 132-9, 6-4, 51604-0, 8 #### [facility] CLIA [id number] [address] [place] [address] [place] CENTROMERE AB QUAL Negative Normal Negative [facility] Comment on above: Order Comment: Speci men Type: BLOOD SPECIMEN Ordering Facility: [facility] Address: [address] [place] [address] Performed By: #### 2 132-9, 2276-4, 47926-7, 2283-8 #### [facility] CLIA [id number] [address] [place] [address] [place] Chromatin Ab Qnon 09-17-2024 CHROMATIN AB QUAL Negative Normal Negative [facility] Comment on above: Order Comment: Speci halina Type: BLOOD SPECIMEN Ordering Facility: [facility] Address: [address] [place] [address] Performed By: #### 5 7021-8 #### JENNIFER [facility] CLIA [id number] [address] [place] [address] [place] Chromatin Ab SerPl-aCncon Chromatin Ab Qn <0.2 Normal <1.0 [facility] Comment on above: Order Comment: Speci men Type: BLOOD SPECIMEN Ordering Facility: [facility] Address: [address] [place] [address] Result Comment: Test Methodology: Multiplex flow immunoassay. Performed By: #### 5 7021-8 #### KATHIEMINDY [facility] CLIA [id number] [facility] [place] [address] [place] Cyclic citrullinated peptide IgG Qnon 09-17-2024 CCP ANTIBODY IGG QUALITATIVE Negative Normal Negative [facility] Comment on above: Order Comment: Speci men Type: BLOOD SPECIMEN Ordering Facility: [facility] Address: [address] [place] [address] Performed By: #### 2 132-9, 2276-4, 17861-7, 228-8 #### [facility] CLIA [id number] [address] [place] [address] [place] DNA double strand Ab IA Qn ( S)on 09-17-2024 DNA ANTIBODY 175 IU/mL Normal <=200 [facility] Comment on above: Order Comment: Speci men Type: BLOOD SPECIMEN Ordering Facility: [facility] Address: [address] [place] [address] Result Comment: Nega tive: <200 IU/mL Equivocal: 201-300 IU/mL Moderate Positive: 301-800 IU/mL Strong Positive: >801 IU/mL Performed By: #### 2 132-9, 2276-4, 62117-9, 228-8 #### [facility] CLIA [id number] [address] [place] [address] [place] DNA ANTIBODY QUALITATIVE INTERPRETATION Negative Normal Negative [facility] Comment on above: Order Comment: Speci men Type: BLOOD SPECIMEN Ordering Facility: [facility] Address: [address] [place] [address] Performed By: #### 2 132-9, 6-4, 47056-2, 8 #### [facility] CLIA [id number] [address] [place] [address] [place] EUFEMIA Jo1 Ab Ser-aCncon 2023 Nadege-1 extractable nuclear Ab Qn (S) <0.2 Normal <1.0 [facility] Comment on above: Order Comment: Speci men Type: BLOOD SPECIMEN Ordering Facility: [facility] Address: [address] [place] [address] Performed By: #### 2 132-9, 2275-4, 98982-4, 2284-06 #### [facility] CLIA [id number] [address] [place] [address] [place] EUFEMIA STONE GANG SAWYER Ab Ser-aCncon 2023 Ribonucleoprotein extractable nuclear Ab Qn (S) <0.2 Normal <1.0 [facility] Comment on above: Order Comment: Speci men Type: BLOOD SPECIMEN Ordering Facility: [facility] Address: [address] [place] [address] Performed By: #### 2 132-9, 2275-4, 57409-4, 8 #### [facility] CLIA [id number] [address] [place] [address] [place] Ribonucleoprotein extractable nuclear Ab Qn (S) 2.3 AI High <1.0 [facility] Comment on above: Order Comment: Speci men Type: BLOOD SPECIMEN Ordering Facility: [facility] Address: [address] [place] [address] Performed By: #### 2 132-9, 2275-4, 61929-4, 8 #### [facility] CLIA [id number] [address] [place] [address] [place] EUFEMIA SM IgG Ser-aCncon 2023 Bang extractable nuclear IgG Qn (S) <0.2 Normal <1.0 [facility] Comment on above: Order Comment: Speci men Type: BLOOD SPECIMEN Ordering Facility: [facility] Address: [address] [place] [address] Performed By: #### 2 132-9, 6-4, 73683-0, 2283-8 #### [facility] CLIA [id number] [address] [place] [address] [place] EUFEMIA SS-A Ab Ser-aCncon 09-17 Sjogrens syndrome-A extractable nuclear Ab Qn (S) <0.2 Normal <1.0 [facility] Comment on above: Order Comment: Speci men Type: BLOOD SPECIMEN Ordering Facility: [facility] Address: [address] [place] [address] Result Comment: Test Methodology: Multiplex flow immunoassay. Performed By: #### 2 132-9, 2275-4, 30043-4, 2284-06 #### [facility] CLIA [id number] [address] [place] [address] [place] EUFEMIA SS-B Ab Ser-aCncon 09-17 Sjogrens syndrome-B extractable nuclear Ab Qn (S) <0.2 Normal <1.0 [facility] Comment on above: Order Comment: Speci men Type: BLOOD SPECIMEN Ordering Facility: [facility] Address: [address] [place] [address] Result Comment: Anti -SSB (anti-La) antibody is used as an aid in diagnosis of a variety of systemic autoimmune diseases, especially for Sjogren's syndrome and systemic lupus erythematosus. Clinical correlation is required. Test Methodology: Multiplex flow immunoassay. Performed By: #### 2 132-9, 6-4, 40114-3, 8 #### [facility] CLIA [id number] [address] [place] [address] [place] Ferritin SerPl-mCncon 11-04- 2024 Ferritin [Mass/Vol] 59.9 ng/mL Normal 14.7-205.1 [facility] Comment on above: Order Comment: Fan meade Type: BLOOD SPECIMENOrdering Facility: [facility] Address: [address] [place] [address] Performed By: #### 5 0190-8, 3084-1, 2276-4 ####[facility] [id number] [place] [address] [place] Folate SerPl-mCncon 09-17-20 24 Folate [Mass/Vol] 18.8 ng/mL Normal >4.7 [facility] Comment on above: Order Comment: Fan meade Type: BLOOD SPECIMEN Ordering Facility: [facility] Address: [address] [place] [address] Performed By: #### 2 132-9, 2284-8 #### [facility] CLIA [id number] [address] [place] [address] [place] Hcys SerPl-sCncon 09-17-2024 Homocysteine [Moles/Vol] 21.2 umol/L High <15.1 [facility] Comment on above: Order Comment: Fan meade Type: BLOOD SPECIMEN Ordering Facility: [facility] Address: [address] [place] [address] Performed By: #### 2 132-9, 2276-4, 54861-1, 2283-8 #### [facility] CLIA [id number] [address] [place] [address] [place] IMMUNOFIXATION SCREEN, SERUM [...] monoclonal gammopathy. Clinical correlation is necessary. Normal [facility] Comment on above: Order Comment: Speci men Type: BLOOD SPECIMEN Ordering Facility: [facility] Address: [address] [place] [address] Performed By: #### 5 7021-8 #### JENNIFER [facility] CLIA [id number] [address] [place] [address] STATES [facility] MPA RESULT A poorly defined region of restricted mobility is present that may represent an M protein. Abnormal No M protein is identified. [facility] Comment on above: Order Comment: Speci men Type: BLOOD SPECIMEN Ordering Facility: [facility] Address: [address] [place] [address] Performed By: #### 5 7021-8 #### CHAZMINDY [facility] CLIA [id number] [address] [place] [address] [place] STAFF REVIEW (MPA) Reviewed by Brianne Mosley M.D., Ph.D Normal [facility] Comment on above: Order Comment: Speci men Type: BLOOD SPECIMEN Ordering Facility: [facility] Address: [address] [place] [address] Performed By: #### 5 7021-8 #### CHAZMINDY [facility] CLIA [id number] [address] [place] [address] [place] IMMUNOGLOBULINS,IGG,IGA,IGMo n 09-17-2024 IgA [Mass/Vol] 142 mg/dL Normal 70-400 [facility] Comment on above: Order Comment: Speci men Type: BLOOD SPECIMEN Ordering Facility: [facility] Address: [address] [place] [address] Performed By: #### 2 132-9, 2276-4, 51643-2, 2284-8 #### [facility] CLIA [id number] [address] [place], [place] [address] [address] [place] IgG [Mass/Vol] 750 mg/dL Normal 700-1600 [facility] Comment on above: Order Comment: Speci men Type: BLOOD SPECIMEN Ordering Facility: [facility] Address: [address] [place] [address] Performed By: #### 2 132-9, 6-4, 67214-5, 8 #### [facility] CLIA [id number] [address] [place] [address] [place] IgM [Mass/Vol] 23 mg/dL Low 40-230 [facility] Comment on above: Order Comment: Speci men Type: BLOOD SPECIMEN Ordering Facility: [facility] Address: [address] [place] [address] Performed By: #### 2 132-9, 6-4, 08577-9, 8 #### [facility] CLIA [id number] [address] [place] [address] [place] Iron and Iron binding capaci ty panelon 09-17-2024 Iron [Mass/Vol] 29 ug/dL Low 41-186 [facility] Comment on above: Order Comment: Speci men Type: BLOOD SPECIMENOrdering Facility: [facility] Address: [address] [place] [address] Performed By: #### 5 0190-8, 308-1, 2276-02 ####[facility] [id number] [place] [address] [place] Iron binding capacity [Mass/Vol] 407 ug/dL High 232-386 [facility] Comment on above: Order Comment: Speci men Type: BLOOD SPECIMENOrdering Facility: [facility] Address: [address] [place] [address] Performed By: #### 5 0190-8, 308-1, 4 ####[facility] [id number] [place] [address] [place] Iron/TIBC [Molar ratio] 7.1 % Low 15.0-57.0 C [facility] Comment on above: Order Comment: Speci men Type: BLOOD SPECIMENOrdering Facility: [facility] Address: [address] [place] [address] Performed By: #### 5 0190-8, 3084-1, 2275-4 ####[facility] [id number] [place] [address] [place] Nadege-1 extractable nuclear Ab Qn (S)on 09-17-2024 NADEGE 1 ANTIBODY QUAL Negative Normal Negative [facility] Comment on above: Order Comment: Fan meade Type: BLOOD SPECIMEN Ordering Facility: [facility] Address: [address] [place] [address] Result Comment: Anti -NADEGE-1 antibody is used as an aid in diagnosis of polymyositis and dermatomyositis especially with pulmonary involvement. A negative result cannot rule out polymyositis or dermatomyositis. Clinical correlation is required. Test Methodology: Multiplex flow immunoassay. Performed By: #### 2 132-9, 2276-4, 57359-3, 2284-8 #### [facility] CLIA [id number] [address] [place] [address] [place] KAPPA/BOWEN,FREE,SERon 2023 Immunoglobulin light chains.kappa.free (S) [Mass/Vol] 45.2 mg/L High 3.3-19.4 [facility] Comment on above: Order Comment: Fan meade Type: BLOOD SPECIMEN Ordering Facility: [facility] Address: [address] [place] [address] Result Comment: Rare ly, increased serum free light chains levels may not be detected or accurately quantified due to prozone phenomenon or in high viscosity samples using this immunoturbidimetric assay. Correlation with other laboratory results and clinical findings is recommended. The [place] Free Light Chain was performed using the Binding Site Optilite immunoturbidimetric method. Result obtained with different assay methods or kits cannot be used interchangeably. Performed By: #### B CRPB1 #### [facility] CLIA [id number] [address] [place] [address] [place] #### ISMRNCNPB #### [facility] CLIA [id number] [address] [place] [address] [place] Immunoglobulin light chains.kappa/Immunoglob ulin light chains.lambda (S) [Mass ratio] 1.57 Normal 0.26-1.65 [facility] Comment on above: Order Comment: Speci men Type: BLOOD SPECIMEN Ordering Facility: [facility] Address: [address] [place] [address] Performed By: #### B CRPB1 #### [facility] CLIA [id number] [address] [place] [address] [place] #### ISMRNCNPB #### [facility] CLIA [id number] [address] [place] [address] [place] Immunoglobulin light chains.lambda.free [Mass/Vol] 28.8 mg/L High 5.7-26.3 [facility] Comment on above: Order Comment: Speci men Type: BLOOD SPECIMEN Ordering Facility: [facility] Address: [address] [place] [address] Result Comment: Rare ly, increased serum free [...] cannot be used interchangeably. Performed By: #### B CRPB1 #### [facility] CLIA [id number] [address] [place] [address] [place] #### ISMRNCNPB #### [facility] CLIA [id number] [address] [place] [address] [place] Methylmalonate SerPl-sCncon 09-17-2024 Methylmalonate [Moles/Vol] 0.29 umol/L Normal <=0.40 [facility] Comment on above: Order Comment: Speci men Type: BLOOD SPECIMEN Ordering Facility: [facility] Address: [address] [place] [address] Result Comment: This test was developed, and its performance characteristics determined by the [facility] Department of Pathology and Laboratory Medicine. It has not been cleared or approved by the FDA. The [facility] Department of Pathology and Laboratory Medicine is regulated under CLIA as qualified to perform high-complexity testing. This test is used for clinical purposes. It should not be regarded as investigational or for research. Performed By: #### 2 132-9, 2276-4, 02809-3, 2284-8 #### [facility] CLIA [id number] [address] [place] [address] [place] Nuclear Ab IA Ql (S)on 09-17 RUBEN SCR QUAL Positive Abnormal Negative [facility] Comment on above: Order Comment: Speci men Type: BLOOD SPECIMEN Ordering Facility: [facility] Address: [address] [place] [address] Result Comment: The qualitative antinuclear antibody screen test performed using the following antigens: dsDNA, Chromatin, Ribosomal P, SS-A 60, SS-A 52, SS-B, Sm, SmRNP, STONE GANG SAWYER A, STONE GANG SAWYER 68, Scl-70, Nadege-1, and Centromere B. Methodology: Multiplex flow immunoassay. Performed By: #### 5 7021-8 #### JENNIFER [facility] CLIA [id number] [address] [place] [address] [place] PATHOLOGIST INTERPRETATION C BC/DIFFon 09-17-2024 [employer] Teacher review Mckay (Unsp spec) [Interp] Reviewed by Dominga Jonhson MD Normal [facility] Comment on above: Order Comment: Speci men Type: BLOOD SPECIMEN Ordering Facility: [facility] Address: [address] [place] [address] Performed By: #### B CRPB1 #### [facility] CLIA [id number] [address] [place] [address] [place] #### ISMRNCNPB #### [facility] CLIA [id number] [address] [place] [address] [place] STAFF REVIEW, CBCDIF Normal [facility] Comment on above: Order Comment: Speci men Type: BLOOD SPECIMEN Ordering Facility: [facility] Address: [address] [place] [address] Result Comment: Norm ocytic anemia without polychromasia Thrombocytosis Performed By: #### B CRPB1 #### [facility] CLIA [id number] [address] [place] [address] [place] #### ISMRNCNPB #### [facility] CLIA [id number] [address] [place] [address] [place] RBC MORPHOLOGYon 09-17-2024 Platelets Estimate (Bld) [#/Vol] Increased Normal [facility] Comment on above: Order Comment: Speci men Type: BLOOD SPECIMEN Ordering Facility: [facility] Address: [address] [place] [address] Performed By: #### B CRPB1 #### [facility] CLIA [id number] [address] [place] [address] [place] #### ISMRNCNPB #### [facility] CLIA [id number] [address] [place] [address] [place] RBC morphology finding Nom (Bld) Reviewed: unremarkable Normal [facility] Comment on above: Order Comment: Speci men Type: BLOOD SPECIMEN Ordering Facility: [facility] Address: [address] [place] [address] Performed By: #### B CRPB1 #### [facility] CLIA [id number] [address] [place] [address] [place] #### ISMRNCNPB #### [facility] CLIA [id number] [address] [place] [address] [place] RETICULOCYTE COUNTon 024 Reticulocytes (Bld) [#/Vol] 0.078 10*3/uL [facility] Retics #on 09-17-2024 Reticulocytes (Bld) [#/Vol] 0.25688 10*3/uL Normal 0.018-0.100 [facility] Comment on above: Order Comment: Speci men Type: BLOOD SPECIMEN Ordering Facility: [facility] Address: [address] [place] [address] Performed By: #### B CRPB1 #### [facility] CLIA [id number] [address] [place] [address] [place] #### ISMRNCNPB #### [facility] CLIA [id number] [address] [place] [address] [place] Reticulocytes (Bld) [#/Vol]o n 09-17-2024 Interpretation and review of laboratory results Normal [facility] Reticulocytes/100 RBC (Bld) 2.0 % 0.4 - 2.0 % [facility] Reticulocytes/100 RBC (Bld) 2.0 % Normal 0.4-2.0 [facility] Comment on above: Order Comment: Speci men Type: BLOOD SPECIMEN Ordering Facility: [facility] Address: [address] [place] [address] Performed By: #### B CRPB1 #### [facility] CLIA [id number] [address] [place] [address] [place] #### ISMRNCNPB #### [facility] CLIA [id number] [address] [place] [address] [place] Ribonucleoprotein extractabl e nuclear Ab Qn (S)on 09-17-2024 ANTI-STONE GANG SAWYER QUAL Positive Abnormal Negative [facility] Comment on above: Order Comment: Speci men Type: BLOOD SPECIMEN Ordering Facility: [facility] Address: [address] [place] [address] Performed By: #### 2 132-9, 2276-4, 33472-6, 2284-8 #### [facility] CLIA [id number] [address] [place] [address] [place] RIBOSOMAL STONE GANG SAWYER QUAL Negative Normal Negative [facility] Comment on above: Order Comment: Fan meade Type: BLOOD SPECIMEN Ordering Facility: [facility] Address: [address] [place] [address] Result Comment: Anti -Ribosomal RNA (Ribosomal P) antibody is used as an aid in diagnosis of systemic autoimmune diseases especially systemic lupus erythematosus and mixed connective tissue disease. Cross-reactivity with Anti-bang antibody is not uncommon. Clinical correlation is required. Test Methodology: Multiplex flow immunoassay. Performed By: #### 2 132-9, 6-4, 57558-3, 2284-06 #### [facility] CLIA [id number] [address] [place] [address] [place] SCL-70 extractable nuclear I gG IA Qn (S)on 09-17-2024 SCLERODERMA AB QUAL Negative Normal Negative [facility] Comment on above: Order Comment: Fan meade Type: BLOOD SPECIMEN Ordering Facility: [facility] Address: [address] [place] [address] Performed By: #### 2 132-9, 6-4, 87712-0, 2284-06 #### [facility] CLIA [id number] [address] [place] [address] [place] SCLERODERMA IGG AB <0.2 Normal <1.0 [facility] Comment on above: Order Comment: Fan meade Type: BLOOD SPECIMEN Ordering Facility: [facility] Address: [address] [place] [address] Result Comment: Scl- 70/Scleroderma antibody test is used as an aid in diagnosis of systemic sclerosis especially the diffuse cutaneous form. A negative result cannot rule out systemic sclerosis. The final interpretation should consider clinical picture and other test results such as anti-centromere antibody. Test Methodology: Multiplex flow immunoassay. Performed By: #### 2 132-9, 6-4, 17453-8, 2284-06 #### [facility] CLIA [id number] [address] [place] [address] [place] Sjogrens syndrome-A extracta ble nuclear Ab Qn (S)on 09-17-2024 SSA ANTIBODY QUAL Negative Normal Negative [facility] Comment on above: Order Comment: Speci men Type: BLOOD SPECIMEN Ordering Facility: [facility] Address: [address] [place] [address] Performed By: #### 2 132-9, 6-4, 85765-4, 8 #### [facility] CLIA [id number] [address] [place] [address] [place] Sjogrens syndrome-B extracta ble nuclear Ab Qn (S)on 09-17-2024 SSB ANTIBODY QUAL Negative Normal Negative [facility] Comment on above: Order Comment: Fan meade Type: BLOOD SPECIMEN Ordering Facility: [facility] Address: [address] [place] [address] Performed By: #### 2 132-9, 6-4, 15014-1, 8 #### [facility] CLIA [id number] [address] [place] [address] [place] Bang extractable nuclear Ig G Qn (S)on 09-17-2024 SM ANTIBODY QUAL Negative Normal Negative [facility] Comment on above: Order Comment: Fan meade Type: BLOOD SPECIMEN Ordering Facility: [facility] Address: [address] [place] [address] Result Comment: Anti -Sm (Bang) antibody is used as an aid in diagnosis of systemic lupus erythematosus and its presence is associated with renal disease. A negative result cannot rule out systemic lupus erythematosus. Clinical correlation is required. Test Methodology: Multiplex flow immunoassay. Performed By: #### 2 132-9, 6-4, 83832-0, 8 #### [facility] CLIA [id number] [address] [place] [address] [place] Urate SerPl-mCncon 4 Urate [Mass/Vol] 5.6 mg/dL Normal 2.5-6.6 [facility] Comment on above: Order Comment: Fan meade Type: BLOOD SPECIMENOrdering Facility: [facility] Address: [address] [place] [address] Performed By: #### 5 0190-8, 3084-1, 2276-4 ####[facility] [id number] [place] [address] [place] Vit B12 SerPl-ncon 024 Cobalamin (Vitamin B12) [Mass/Vol] 433 pg/mL Normal 232-1245 [facility] Comment on above: Order Comment: Speci men Type: BLOOD SPECIMEN [facility]ing Facility: [facility] Address: [address] [place] [address] Performed By: #### 2 132-9, 2284-8 #### [facility] CLIA [id number] [address] [place] [address] [place] XR ANKLE 3V AP/LAT/OBL [...] Degenerative changes, calcaneal enthesophytes, and pes planus. Principal Cloud Architect: PHU Transcribe Date/Time: Sep 18 2024 12:20P Dictated by : GERTRUDIS MONCADA MD This examination was interpreted and the report reviewed and electronically signed by: GERTRUDIS MONCADA MD on Sep 18 2024 12:22PM EST [id number] Normal [facility] XR Ankle - right AP and Late ral and obliqueon 09-17-2024 Radiology Study observation (narrative) [facility] Zinc SerPl-mCncon 09-17-2024 Zinc [Mass/Vol] 55 ug/dL Low 60-120 [facility] Comment on above: Order Comment: Fan meade Type: BLOOD SPECIMEN [facility]: [facility] Address: [address] [place] [address] Result Comment: This test was developed, and its performance characteristics determined by the [facility] Department of Pathology and Laboratory Medicine. It has not been cleared or approved by the FDA. The [facility] Department of Pathology and Laboratory Medicine is regulated under CLIA as qualified to perform high-complexity testing. This test is used for clinical purposes. It should not be regarded as investigational or for research. Performed By: #### 2 132-9, 2276-4, 45213-4, 2284-8 #### [facility] CLIA [id number] [address] [place] [address] [place] cCP IgG SerPl-aCncon 024 Cyclic citrullinated peptide IgG Qn <15 Normal <20 [facility] Comment on above: Order Comment: Fan meade Type: BLOOD SPECIMEN [facility] Address: [address] [place] [address] Performed By: #### 2 132-9, 2276-4, 80990-7, 2284-8 #### [facility] CLIA [id number] [address] [place] [address] [place] CNOVon 09-13-2024 CNOV Office Visit ([facility] ) YUSUF [id number]) 1935 F [place] Date Time Provider Department 09/13/24 10:00 AM MIGDALIA CRAMER [facility] During your visit today, we recorded the [...] changes, you (more content not included)... Normal [facility] YUSUF MEDINA ([id number]) 1935 F [place] Date Time Provider Department 08/21/24 MIGDALIA CRAMER [facility] During your visit today, we recorded the [...] this patient by: CAREGIVER José Miguel Swanson [facility] Problem List As Of Date 08/21/2024 [...] 12/07/2017 Cervic (more content not included)... Normal [facility] ALBUMIN/CREATININE RATIO, UR INEon 08-14-2024 Albumin DL <= 20 mg/L (U) [Mass/Vol] 387.7 mg/L Normal [facility] Comment on above: Order Comment: Speci men Type: BLOOD SPECIMEN [facility] Address: [address] [place] [address] Performed By: #### B CRPB1 #### [facility] CLIA [id number] [address] [place] [address] [place] #### ISMRNCNPB #### [facility] CLIA [id number] [address] [place] [address] Albumin/Creatinine (U) [Mass ratio] 483 mg/g High <30 [facility] Comment on above: Order Comment: Speci men Type: BLOOD SPECIMEN [facility] Address: [address] [place] [address] Result Comment: Adul t Male and Female Nephrotic Criteria: <30 mg/g is considered normal to mildly increased 30-300 mg/g is considered moderately increased >300 mg/g is considered severely increased KDIGO. (2013). KDIGO 2012 Clinical Practice Guideline for the Evaluation and Management of Chronic Kidney Disease. Official Journal of the International Society of Nephrology, 3(1), 1-150. Performed By: #### B CRPB1 #### [facility] CLIA [id number] [address] [place] [address] [place] #### ISMRNCNPB #### [facility] CLIA [id number] [address] [place] [address] [place] Creatinine (U) [Mass/Vol] 80.2 mg/dL Normal 20.0-300.0 [facility] Comment on above: Order Comment: Speci men Type: BLOOD SPECIMEN [facility] Address: [address] [place] [address] Performed By: #### B CRPB1 #### [facility] CLIA [id number] [address] [place] [address] [place] #### ISMRNCNPB #### [facility] CLIA [id number] [address] [place] [address] [place] Bacteria Ur Culton [...] technique or straight catheterization for???urine???collecti on. Normal [facility] Comment on above: Performed By: #### 6 30-4 ####[facility] [id number] [place] [address] [place] Basic metabolic 2000 panelon 08-14-2024 Anion gap [Moles/Vol] 13 mmol/L Normal 8-15 [facility] Comment on above: Order Comment: Speci men Type: BLOOD SPECIMEN [facility] Address: [address] [place] [address] Performed By: #### 5 7021-8 #### [facility] CLIA [id number] [address] [place] [address] [place] Calcium [Mass/Vol] 9.9 mg/dL Normal 8.5-10.2 [facility] Comment on above: Order Comment: Speci men Type: BLOOD SPECIMEN [facility] Address: [address] [place] [address] Performed By: #### 5 7021-8 #### [facility] CLIA [id number] [address] [place] [address] [place] Chloride [Moles/Vol] 96 mmol/L Low 98-107 [facility] Comment on above: Order Comment: Speci men Type: BLOOD SPECIMEN [facility] Address: [address] [place] [address] Performed By: #### 5 7021-8 #### [facility] CLIA [id number] [address] [place] [address] [place] CO2 [Moles/Vol] 24 mmol/L Normal 22-30 [facility] Comment on above: Order Comment: Speci men Type: BLOOD SPECIMEN [facility] Address: [address] [place] [address] Performed By: #### 5 7021-8 #### [facility] CLIA [id number] [address] [place] [address] [place] Creatinine [Mass/Vol] 0.89 mg/dL Normal 0.58-0.96 [facility] Comment on above: Order Comment: Speci men Type: BLOOD SPECIMEN [facility] Address: [address] [place] [address] Performed By: #### 5 7021-8 #### [facility] CLIA [id number] [facility] [place] [address] [place] Creatinine and Glomerular filtration rate.predicted panel (S/P/Bld) 62 mL/min/1.73m??? Normal >=60 [facility] Comment on above: Order Comment: Speci men Type: BLOOD SPECIMEN [facility] Address: [address] [place] [address] Result Comment: Hilda mated Glomerular Filtration Rate [...] reflect actual GFR. Performed By: #### 5 7021-8 #### [facility] CLIA [id number] [facility] [place] [address] [place] Glucose [Mass/Vol] 245 mg/dL High 74-99 [facility] Comment on above: Order Comment: Fan meade Type: BLOOD SPECIMEN [facility] Address: [address] [place] [address] Result Comment: The [place] Diabetes Association (ADA) provides guidance for cutoff [...] Standards of Medical Care in Diabetes 2016, [place] Diabetes Association. Diabetes Care. 2016.39(Suppl 1). Performed By: #### 5 7021-8 #### [facility] CLIA [id number] [address] [place] [address] [place] Potassium [Moles/Vol] 4.9 mmol/L Normal 3.7-5.1 [facility] Comment on above: Order Comment: Fan meade Type: BLOOD SPECIMEN [facility] Address: [address] [place] [address] Performed By: #### 5 7021-8 #### [facility] CLIA [id number] [address] [place] [address] [place] Sodium [Moles/Vol] 133 mmol/L Low 136-144 [facility] Comment on above: Order Comment: Speci men Type: BLOOD SPECIMEN [facility] Address: [address] [place] [address] Performed By: #### 5 7021-8 #### [facility] CLIA [id number] [address] [place] [address] [place] Urea nitrogen [Mass/Vol] 29 mg/dL High 7-21 [facility] Comment on above: Order Comment: Speci men Type: BLOOD SPECIMEN [facility] Address: [address] [place] [address] Performed By: #### 5 7021-8 #### [facility] CLIA [id number] [facility] [place] [address] [place] CBC W Ordered Manual Differe ntial panel (Bld)on 08-14-2024 Basophils (Bld) [#/Vol] 0.05 10*3/uL Normal <0.11 [facility] Comment on above: Order Comment: Speci men Type: BLOOD SPECIMENOrdering Facility: [facility] Address: [address] [place] [address] Performed By: #### 5 7782-5, RADHA 7-7 ####[facility] [id number] [place] [address] [place] Basophils/100 WBC (Bld) 0.4 % Normal [facility] Comment on above: Order Comment: Speci men Type: BLOOD SPECIMENOrdering Facility: [facility] Address: [address] [place] [address] Performed By: #### 5 7782-5, RADHA 7-7 ####[facility] [id number] [place] [address] [place] Differential cell count method Nom (Bld) Auto Normal [facility] Comment on above: Order Comment: Speci men Type: BLOOD SPECIMENOrdering Facility: [facility] Address: [address] [place] [address] Performed By: #### 5 7782-5, STFRZAID, 4537-05 ####[facility] [id number] [place] [address] [place] Eosinophils (Bld) [#/Vol] 0.04 10*3/uL Normal <0.46 [facility] Comment on above: Order Comment: Speci men Type: BLOOD SPECIMENOrdering Facility: [facility] Address: [address] [place] [address] Performed By: #### 5 7782-5, STEVERARDO, 4537-05 ####[facility] [id number] [place] [address] [place] Eosinophils/100 WBC (Bld) 0.3 % Normal [facility] Comment on above: Order Comment: Speci men Type: BLOOD SPECIMENOrdering Facility: [facility] Address: [address] [place] [address] Performed By: #### 5 7782-5, STEVERARDO, 4537-05 ####[facility] [id number] [place] [address] [place] Erythrocyte distribution width (RBC) [Ratio] 14.9 % Normal 11.5-15.0 [facility] Comment on above: Order Comment: Speci men Type: BLOOD SPECIMENOrdering Facility: [facility] Address: [address] [place] [address] Performed By: #### 5 7782-5, STFRZAID, 4537-05 ####[facility] [id number] [place] [address] [place] Hematocrit (Bld) [Volume fraction] 35.2 % Low 36.0-46.0 [facility] Comment on above: Order Comment: Speci men Type: BLOOD SPECIMENOrdering Facility: [facility] Address: [address] [place] [address] Performed By: #### 5 7782-5, STFRZAID, 4537-05 ####[facility] [id number] [place] [address] [place] Hemoglobin (Bld) [Mass/Vol] 11.2 g/dL Low 11.5-15.5 [facility] Comment on above: Order Comment: Speci men Type: BLOOD SPECIMENOrdering Facility: [facility] Address: [address] [place] [address] Performed By: #### 5 7782-5, STFRZAID, 4537-05 ####[facility] [id number] [place] [address] [place] Immature granulocytes (Bld) [#/Vol] 0.06 10*3/uL Normal <0.10 [facility] Comment on above: Order Comment: Speci men Type: BLOOD SPECIMENOrdering Facility: [facility] Address: [address] [place] [address] Performed By: #### 5 7782-5, STFRZAID, 4537-05 ####[facility] [id number] [place] [address] [place] Immature granulocytes/100 WBC (Bld) 0.5 % Normal [facility] Comment on above: Order Comment: Speci men Type: BLOOD SPECIMENOrdering Facility: [facility] Address: [address] [place] [address] Performed By: #### 5 7782-5, STFRZAID, 4537-05 ####[facility] [id number] [place] [address] [place] Lymphocytes (Bld) [#/Vol] 1.40 10*3/uL Normal 1.00-4.00 [facility] Comment on above: Order Comment: Speci men Type: BLOOD SPECIMENOrdering Facility: [facility] Address: [address] [place] [address] Performed By: #### 5 7782-5RADHA 4537-05 ####[facility] [id number] [place] [address] [place] Lymphocytes/100 WBC (Bld) 11.3 % Normal [facility] Comment on above: Order Comment: Speci men Type: BLOOD SPECIMENOrdering Facility: [facility] Address: [address] [place] [address] Performed By: #### 5 7782-5, RADHA 4537-05 ####[facility] [id number] [place] [address] [place] MCH (RBC) [Entitic mass] 28.4 pg Normal 26.0-34.0 [facility] Comment on above: Order Comment: Speci men Type: BLOOD SPECIMENOrdering Facility: [facility] Address: [address] [place] [address] Performed By: #### 5 7782-5, RADHA 4537-05 ####[facility] [id number] [place] [address] [place] MCHC (RBC) [Mass/Vol] 31.8 g/dL Normal 30.5-36.0 [facility] Comment on above: Order Comment: Speci men Type: BLOOD SPECIMENOrdering Facility: [facility] Address: [address] [place] [address] Performed By: #### 5 7782-5, RADHA 4537-05 ####[facility] [id number] [place] [address] [place] MCV (RBC) [Entitic vol] 89.3 fL Normal 80.0-100.0 [facility] Comment on above: Order Comment: Speci men Type: BLOOD SPECIMENOrdering Facility: [facility] Address: [address] [place] [address] Performed By: #### 5 7782-5, RADHA 4537-05 ####[facility] [id number] [place] [address] [place] Monocytes (Bld) [#/Vol] 0.83 10*3/uL Normal <0.87 [facility] Comment on above: Order Comment: Speci men Type: BLOOD SPECIMENOrdering Facility: [facility] Address: [address] [place] [address] Performed By: #### 5 7782-5, RADHA 7 ####[facility] [id number] [place] [address] [place] Monocytes/100 WBC (Bld) 6.7 % Normal [facility] Comment on above: Order Comment: Speci men Type: BLOOD SPECIMENOrdering Facility: [facility] Address: [address] [place] [address] Performed By: #### 5 7782-5, RADHA 4537-05 ####[facility] [id number] [place] [address] [place] Neutrophils (Bld) [#/Vol] 10.03 10*3/uL High 1.45-7.50 [facility] Comment on above: Order Comment: Speci men Type: BLOOD SPECIMENOrdering Facility: [facility] Address: [address] [place] [address] Performed By: #### 5 7782-5, RADHA 7 ####[facility] [id number] [place] [address] [place] Neutrophils/100 WBC (Bld) 80.8 % Normal [facility] Comment on above: Order Comment: Speci men Type: BLOOD SPECIMENOrdering Facility: [facility] Address: [address] [place] [address] Performed By: #### 5 7782-5, RADHA 4537-05 ####[facility] [id number] [place] [address] [place] Nucleated RBC (Bld) [#/Vol] 10*3/uL Normal <0.01 [facility] Comment on above: Order Comment: Speci men Type: BLOOD SPECIMENOrdering Facility: [facility] Address: [address] [place] [address] Performed By: #### 5 7782-5, STEVERARDO, 4537-05 ####[facility] [id number] [place] [address] [place] Nucleated RBC/100 WBC (Bld) [Ratio] 0.0 /100 WBC Normal [facility] Comment on above: Order Comment: Speci men Type: BLOOD SPECIMENOrdering Facility: [facility] Address: [address] [place] [address] Performed By: #### 5 7782-5, STEVERARDO, 4537-05 ####[facility] [id number] [place] [address] [place] Platelet mean volume (Bld) [Entitic vol] 10.2 fL Normal 9.0-12.7 [facility] Comment on above: Order Comment: Speci men Type: BLOOD SPECIMENOrdering Facility: [facility] Address: [address] [place] [address] Performed By: #### 5 7782-5, STEVERARDO, 4537-05 ####[facility] [id number] [place] [address] [place] Platelets (Bld) [#/Vol] 330 10*3/uL Normal 150-400 [facility] Comment on above: Order Comment: Speci men Type: BLOOD SPECIMENOrdering Facility: [facility] Address: [address] [place] [address] Performed By: #### 5 7782-5, STFRZAID, 4537-05 ####[facility] [id number] [place] [address] [place] RBC (Bld) [#/Vol] 3.94 10*6/uL Normal 3.90-5.20 [facility] Comment on above: Order Comment: Speci men Type: BLOOD SPECIMENOrdering Facility: [facility] Address: [address] [place] [address] Performed By: #### 5 7782-5, STEVERARDO, 4537-7 ####[facility] [id number] [place] [address] [place] WBC (Bld) [#/Vol] 12.41 10*3/uL High 3.70-11.00 [facility] Comment on above: Order Comment: Speci men Type: BLOOD SPECIMENOrdering Facility: [facility] Address: [address] [place] [address] Performed By: #### 5 7782-5, STEVERARDO, 4537-7 ####[facility] [id number] [place] [address] [place] CNOVon 08-14-2024 CNOV Office Visit ([facility] ) YUSUF MEDINA ([id number]) 1935 [address] [facility] [place] Date Time Provider Department 08/14/24 10:40 AM MIGDALIA CRAMER [facility] During your visit today, we recorded the [...] no acute (more content not included)... Normal [facility] CRP [Mass/Vol] 7.8 mg/dL High <0.9 [facility] Comment on above: Order Comment: Fan meade Type: BLOOD SPECIMEN [facility] Address: [address] [place] [address] Performed By: #### 5 7021-8 #### [facility] CLIA [id number] [facility] [place] [address] [place] ESR Westergren method (Bld) [Velocity]on 08-14-2024 ESR (Bld) [Velocity] 40 mm/h High 0-20 [facility] Comment on above: Order Comment: Fan meade Type: BLOOD SPECIMENOrdering Facility: [facility] Address: [address] [place] [address] Performed By: #### 5 7782-5, RADHA 4537-7 ####[facility] [id number] [place] [address] [place] HbA1c (Bld)on 08-14-2024 Average glucose Estimated from glycated hemoglobin (Bld) [Mass/Vol] 197 mg/dL Normal [facility] Comment on above: Order Comment: Fan meade Type: BLOOD SPECIMENOrdering Facility: [facility] Address: [address] [place] [address] Result Comment: eAG: (Estimated average glucose) is a calculated value from HgbA1c and is retail account representative of the average blood glucose level in the last 2-3 month period. Performed By: #### 5 5454-3 ####[facility] [id number] [place] [address] [place] HbA1c (Bld) [Mass fraction] 8.5 % High 4.3-5.6 [facility] Comment on above: Order Comment: Fan meade Type: BLOOD SPECIMENOrdering Facility: [facility] Address: [address] [place] [address] Result Comment: [place] Diabetes Association guidelines indicate that patients with HgbA1c in the range 5.7-6.4% are at increased risk for development of diabetes, and intervention by lifestyle modification may be beneficial. HgbA1c greater or equal to 6.5% is considered diagnostic of diabetes. Performed By: #### 5 5454-3 ####[facility] [id number] [address] [place] PATHOLOGIST INTERPRETATION C BC/DIFFon 08-14-2024 [employer] Teacher review Mckay (Unsp spec) [Interp] No review performed. Normal [facility] Comment on above: Order Comment: Speci men Type: BLOOD SPECIMENOrdering Facility: [facility] Address: [address] [place] [address] Performed By: #### 5 7782-5, RADHA 4537-7 ####[facility] [id number] [address] STAFF REVIEW, CBCDIF Normal [facility] Comment on above: Order Comment: Speci men Type: BLOOD SPECIMENOrdering Facility: [facility] Address: [address] [place] [address] Result Comment: The Pathologist Interpretation on this sample was cancelled because the hematology analyzer did not flag any parameters as requiring manual review. If there is a specific clinical concern for which you would like a pathologist to review the blood smear, please call Lab Client Services within 28 days. Performed By: #### 5 7782-5, RADHA, 7-7 ####[facility] [id number] [place] [address] [place] PROTEIN ELECTROPHORESIS SERU M (P)on 08-14-2024 Albumin [Mass/Vol] 3.80 g/dL Normal 3.43-5.41 [facility] Comment on above: Order Comment: Speci men Type: BLOOD SPECIMEN [facility] Address: [address] [place] [address] Performed By: #### 2 132-9, 2276-4, 42559-0, 2284-8 #### [facility] CLIA [id number] [address] [place] [address] [place] Alpha 1 globulin Elph [Mass/Vol] 0.46 g/dL High 0.18-0.43 [facility] Comment on above: Order Comment: Speci men Type: BLOOD SPECIMEN [facility] Address: [address] [place] [address] Performed By: #### 2 132-9, 2276-4, 58092-1, 2284-8 #### [facility] CLIA [id number] [address] [place] [address] [place] Alpha 2 globulin Elph [Mass/Vol] 1.03 g/dL High 0.42-0.98 [facility] Comment on above: Order Comment: Speci men Type: BLOOD SPECIMEN Ordering Facility: [facility] Address: [address] [place] [address] Performed By: #### 2 132-9, 6-4, 05397-1, 2283-8 #### [facility] CLIA [id number] [address] [place] [address] [place] Beta globulin Elph [Mass/Vol] 0.84 g/dL Normal 0.61-1.17 [facility] Comment on above: Order Comment: Speci men Type: BLOOD SPECIMEN [facility] Address: [address] [place] [address] Performed By: #### 2 132-9, 6-4, 90558-1, 2283-8 #### [facility] CLIA [id number] [address] [place] [address] [place] Gamma globulin Elph [Mass/Vol] 0.58 g/dL Normal 0.53-1.51 [facility] Comment on above: Order Comment: Speci men Type: BLOOD SPECIMEN Ordering Facility: [facility] Address: [address] [place] [address] Performed By: #### 2 132-9, 2276-4, 98593-5, 2284-8 #### [facility] CLIA [id number] [address] [place] [address] [place] INTERPRETATION COMMENT FOR PROTEIN ELECTROPHORESIS The atypical region is relatively poorly defined and may represent an unusual presentation of polyclonal immunoglobulins, but cannot rule out the presence of a low level M protein. If clinically indicated, monoclonal protein analysis and serum free light chain analysis are suggested to evaluate further for monoclonal gammopathy. Normal [facility] Comment on above: Order Comment: Fan meade Type: BLOOD SPECIMEN Ordering Facility: [facility] Address: [address] [place] [address] Performed By: #### 2 132-9, 2276-4, 56125-4, 2284-8 #### [facility] CLIA [id number] [address] [place] [address] [place] M-PROTEIN LOCATION Normal [facility] Comment on above: Order Comment: Fan meade Type: BLOOD SPECIMEN Ordering Facility: [facility] Address: [address] [place] [address] Result Comment: Not Applicable. Performed By: #### 2 132-9, 2276-4, 70510-3, 2284-8 #### [facility] CLIA [id number] [address] [place] [address] [place] Protein Fractions [Interp] An atypical region of restricted mobility is identified on protein electrophoresis. Abnormal No definitive M protein is identified on protein electrophore sis. [facility] Comment on above: Order Comment: Fan meade Type: BLOOD SPECIMEN Ordering Facility: [facility] Address: [address] [place] [address] Performed By: #### 2 132-9, 2276-4, 87477-0, 2284-8 #### [facility] CLIA [id number] [address] [place] [address] [place] Protein.monoclonal Elph [Mass/Vol] 0.00 g/dL Normal <=0.00 [facility] Comment on above: Order Comment: Fan meade Type: BLOOD SPECIMEN Ordering Facility: [facility] Address: [address] [place] [address] Performed By: #### 2 132-9, 2276-4, 11966-5, 2284-8 #### [facility] CLIA [id number] [address] [place] [address] [place] SPE STAFF REVIEW Reviewed by Tanisha Sanchez MD [facility] Comment on above: Order Comment: Speci men Type: BLOOD SPECIMEN Ordering Facility: [facility] Address: [address] [place] [address] Performed By: #### 2 132-9, 2276-4, 86476-5, 2284-8 #### [facility] CLIA [id number] [address] [place] [address] [place] Prot SerPl-mCncon 08-14-2024 Protein [Mass/Vol] 6.7 g/dL Normal 6.3-8.0 [facility] Comment on above: Order Comment: Speci men Type: BLOOD SPECIMEN Ordering Facility: [facility] Address: [address] [place] [address] Performed By: #### 5 7021-8 #### [facility] CLIA [id number] [address] [place] [address] [place] Prot Ur-mCncon 08-14-2024 Protein (U) [Mass/Vol] 78 mg/dL High 0-20 [facility] Comment on above: Order Comment: Speci men Type: BLOOD SPECIMEN Ordering Facility: [facility] Address: [address] [place] [address] Performed By: #### B [id number] #### [facility] CLIA [id number] [address] [place] [address] [place] #### [id number] #### [facility] CLIA [id number] [address] [place] [address] [place] TSH SerPl-aCncon 08-14-2024 TSH Qn 1.120 m[IU]/L Normal 0.270-4.200 [facility] Comment on above: Order Comment: Speci men Type: BLOOD SPECIMEN Ordering Facility: [facility] Address: [address] [place] [address] Performed By: #### 5 7021-8 #### [facility] CLIA [id number] [address] [place] [address] [place] URINALYSIS, DIPSTICK ONLYon 08-14-2024 Bilirubin Ql (U) Negative Normal Negative [facility] Comment on above: Order Comment: Speci men Type: BLOOD SPECIMEN Ordering Facility: [facility] Address: [address] [place] [address] Performed By: #### 2 132-9, 2276-4, 45755-5, 2283-8 #### [facility] CLIA [id number] [address] [place] [address] [place] Clarity (Unsp spec) Clear Normal Clear [facility] Comment on above: Order Comment: Speci men Type: BLOOD SPECIMEN Ordering Facility: [facility] Address: [address] [place] [address] Performed By: #### 2 132-9, 6-4, 07010-7, 2283-8 #### [facility] CLIA [id number] [address] [place] [address] [place] Color (U) Yellow Normal Yellow [facility] Comment on above: Order Comment: Speci men Type: BLOOD SPECIMEN Ordering Facility: [facility] Address: [address] [place] [address] Performed By: #### 2 132-9, 2276-4, 68959-1, 2283-8 #### [facility] CLIA [id number] [address] [place] [address] [place] Glucose Test strip (U) [Mass/Vol] 1+ Abnormal Negative [facility] Comment on above: Order Comment: Speci men Type: BLOOD SPECIMEN Ordering Facility: [facility] Address: [address] [place] [address] Performed By: #### 2 132-9, 2276-4, 59275-2, 2283-8 #### [facility] CLIA [id number] [address] [place] [address] [place] Hemoglobin Ql (U) Negative Normal Negative [facility] Comment on above: Order Comment: Speci men Type: BLOOD SPECIMEN Ordering Facility: [facility] Address: [address] [place] [address] Performed By: #### 2 132-9, 6-4, 89561-5, 2283-8 #### [facility] CLIA [id number] [address] [place] [address] [place] Ketones Ql (U) Negative Normal Negative [facility] Comment on above: Order Comment: Speci men Type: BLOOD SPECIMEN Ordering Facility: [facility] Address: [address] [place] [address] Performed By: #### 2 132-9, 6-4, 85227-0, 2283-8 #### [facility] CLIA [id number] [address] [place] [address] [place] Leukocyte esterase Test strip Ql (U) Negative Normal Negative [facility] Comment on above: Order Comment: Speci men Type: BLOOD SPECIMEN Ordering Facility: [facility] Address: [address] [place] [address] Performed By: #### 2 132-9, 2276-4, 93454-7, 2283-8 #### [facility] CLIA [id number] [address] [place] [address] [place] Nitrite Ql (U) Negative Normal Negative [facility] Comment on above: Order Comment: Speci men Type: BLOOD SPECIMEN Ordering Facility: [facility] Address: [address] [place] [address] Performed By: #### 2 132-9, 6-4, 59694-0, 2284-8 #### [facility] CLIA [id number] [address] [place] [address] [place] pH (U) 6.5 [pH] Normal <8.5 [facility] Comment on above: Order Comment: Speci men Type: BLOOD SPECIMEN Ordering Facility: [facility] Address: [address] [place] [address] Performed By: #### 2 132-9, 6-4, 56633-9, 8 #### [facility] CLIA [id number] [address] [place] [address] [place] Protein (U) [Mass/Vol] 2+ Abnormal Negative [facility] Comment on above: Order Comment: Speci men Type: BLOOD SPECIMEN Ordering Facility: [facility] Address: [address] [place] [address] Performed By: #### 2 132-9, 6-4, 71092-6, 2284-06 #### [facility] CLIA [id number] [address] [place] [address] [place] Specific gravity (U) [Rel density] 1.020 Normal 1.005-1.030 [facility] Comment on above: Order Comment: Speci men Type: BLOOD SPECIMEN Ordering Facility: [facility] Address: [address] [place] [address] Performed By: #### 2 132-9, 6-4, 58094-9, 8 #### [facility] CLIA [id number] [address] [place] [address] [place] Urobilinogen Ql (U) 1.0 EU/dL Normal 0.2-1.0 EU/dL [facility] Comment on above: Order Comment: Speci men Type: BLOOD SPECIMEN Ordering Facility: [facility] Address: [address] [place] [address] Performed By: #### 2 132-9, 6-4, 12508-5, 8 #### [facility] CLIA [id number] [address] [place] [address] [place] URINE PROTEIN ELECTROPHORESI S RANDOM (P)on 08-14-2024 Albumin Elph (U) [Mass fraction] 69.11 % Normal [facility] Comment on above: Order Comment: Speci men Type: URINE SPECIMENOrdering Facility: [facility] Address: [address] [place] [address] Performed By: #### L [id number] ####[facility] [id number] [place] [address] [place] Alpha 1 globulin Elph (U) [Mass fraction] 7.87 % Normal [facility] Comment on above: Order Comment: Speci men Type: URINE SPECIMENOrdering Facility: [facility] Address: [address] [place] [address] Performed By: #### L [id number] ####[facility] [id number] [place] [address] [place] Alpha 2 globulin Elph (U) [Mass fraction] 6.40 % Normal [facility] Comment on above: Order Comment: Speci men Type: URINE SPECIMENOrdering Facility: [facility] Address: [address] [place] [address] Performed By: #### L [id number] ####[facility] [id number] [place] [address] [place] Beta globulin Elph (U) [Mass fraction] 11.20 % Normal [facility] Comment on above: Order Comment: Speci men Type: URINE SPECIMENOrdering Facility: [facility] Address: [address] [place] [address] Performed By: #### L [id number] ####[facility] [id number] [place] [address] [place] Gamma globulin Elph (U) [Mass fraction] 5.42 % Normal [facility] Comment on above: Order Comment: Speci men Type: URINE SPECIMENOrdering Facility: [facility] Address: [address] [place] [address] Performed By: #### L [id number] ####[facility] [id number] [place] [address] [place] Protein Fractions Elph Mckay (U) [Interp] No definitive M protein is identified on protein electrophoresis. Normal No definitive M protein is identified on protein electrophore sis. [facility] Comment on above: Order Comment: Speci men Type: URINE SPECIMENOrdering Facility: [facility] Address: [address] [place] [address] Performed By: #### L [id number] ####[facility] [id number] [address] [place] STAFF REVIEW (URINE ELECTRO) Reviewed by Brianne Mosley M.D., Ph.D Normal [facility] Comment on above: Order Comment: Speci men Type: URINE SPECIMENOrdering Facility: [facility] Address: [address] [place] [address] Performed By: #### L [id number] ####[facility] [id number] [address] [place] ALLIED HEALTHon 08-13-2024 ALLIED HEALTH HNO ID: [id number] Author: TYESHA CHENEY RT(R) Service: Radiology Author [...] PATIENT PRESENTS WITH AN IMPLANTABLE OR ATTACHED SENIOR C SOFTWARE ENGINEER: No RADIOLOGY DEPARTMENT: General X-ray: Exam(s) Completed: Chest X-Ray PERIPHERAL IV DATA: Not applicable SIGNED BY: RT Carolina(R) August 13, 2024 3:49 PM Normal [facility] CBC W Auto Differential pane l (Bld)on 08-13-2024 Basophils (Bld) [#/Vol] 0.03 10*3/uL Normal <0.11 [facility] Comment on above: Order Comment: Speci men Type: BLOOD SPECIMEN Ordering Facility: [facility] Address: [address] [place] [address] Performed By: #### 5 7021-8 #### [facility] CLIA [id number] [address] [place] [address] [place] Basophils/100 WBC (Bld) 0.2 % Normal [facility] Comment on above: Order Comment: Speci men Type: BLOOD SPECIMEN Ordering Facility: [facility] Address: [address] [place] [address] Performed By: #### 5 7021-8 #### [facility] CLIA [id number] [address] [place] [address] [place] Differential cell count method Nom (Bld) Auto Normal [facility] Comment on above: Order Comment: Speci men Type: BLOOD SPECIMEN Ordering Facility: [facility] Address: [address] [place] [address] Performed By: #### 5 7021-8 #### [facility] CLIA [id number] [address] [place] [address] [place] Eosinophils (Bld) [#/Vol] 10*3/uL Normal <0.46 [facility] Comment on above: Order Comment: Speci men Type: BLOOD SPECIMEN Ordering Facility: [facility] Address: [address] [place] [address] Performed By: #### 5 7021-8 #### [facility] CLIA [id number] [address] [place] [address] [place] Eosinophils/100 WBC (Bld) 0.1 % Normal [facility] Comment on above: Order Comment: Speci men Type: BLOOD SPECIMEN Ordering Facility: [facility] Address: [address] [place] [address] Performed By: #### 5 7021-8 #### [facility] CLIA [id number] [address] [place] [address] [place] Erythrocyte distribution width (RBC) [Ratio] 14.6 % Normal 11.5-15.0 [facility] Comment on above: Order Comment: Speci men Type: BLOOD SPECIMEN Ordering Facility: [facility] Address: [address] [place] [address] Performed By: #### 5 7021-8 #### [facility] CLIA [id number] [address] [place] [address] [place] Hematocrit (Bld) [Volume fraction] 33.5 % Low 36.0-46.0 [facility] Comment on above: Order Comment: Speci men Type: BLOOD SPECIMEN Ordering Facility: [facility] Address: [address] [place] [address] Performed By: #### 5 7021-8 #### [facility] CLIA [id number] [address] [place] [address] [place] Hemoglobin (Bld) [Mass/Vol] 10.9 g/dL Low 11.5-15.5 [facility] Comment on above: Order Comment: Speci men Type: BLOOD SPECIMEN Ordering Facility: [facility] Address: [address] [place] [address] Performed By: #### 5 7021-8 #### [facility] CLIA [id number] [address] [place] [address] [place] Immature granulocytes (Bld) [#/Vol] 0.09 10*3/uL Normal <0.10 [facility] Comment on above: Order Comment: Speci men Type: BLOOD SPECIMEN Ordering Facility: [facility] Address: [address] [place] [address] Performed By: #### 5 7021-8 #### [facility] CLIA [id number] [address] Immature granulocytes/100 WBC (Bld) 0.5 % Normal [facility] Comment on above: Order Comment: Speci men Type: BLOOD SPECIMEN Ordering Facility: [facility] Address: [address] [place] [address] Performed By: #### 5 7021-8 #### [facility] CLIA [id number] [address] [place] [address] [place] Lymphocytes (Bld) [#/Vol] 0.91 10*3/uL Low 1.00-4.00 [facility] Comment on above: Order Comment: Speci men Type: BLOOD SPECIMEN Ordering Facility: [facility] Address: [address] [place] [address] Performed By: #### 5 7021-8 #### [facility] CLIA [id number] [address] [place] [address] Lymphocytes/100 WBC (Bld) 5.3 % Normal [facility] Comment on above: Order Comment: Speci men Type: BLOOD SPECIMEN Ordering Facility: [facility] Address: [address] [place] [address] Performed By: #### 5 7021-8 #### [facility] CLIA [id number] [address] [place] [address] [place] MCH (RBC) [Entitic mass] 28.6 pg Normal 26.0-34.0 [facility] Comment on above: Order Comment: Speci men Type: BLOOD SPECIMEN Ordering Facility: [facility] Address: [address] [place] [address] Performed By: #### 5 7021-8 #### [facility] CLIA [id number] [address] [place] [address] [place] MCHC (RBC) [Mass/Vol] 32.5 g/dL Normal 30.5-36.0 [facility] Comment on above: Order Comment: Speci men Type: BLOOD SPECIMEN Ordering Facility: [facility] Address: [address] [place] [address] Performed By: #### 5 7021-8 #### [facility] CLIA [id number] [address] [place] [address] [place] MCV (RBC) [Entitic vol] 87.9 fL Normal 80.0-100.0 [facility] Comment on above: Order Comment: Speci men Type: BLOOD SPECIMEN Ordering Facility: [facility] Address: [address] [place] [address] Performed By: #### 5 7021-8 #### [facility] CLIA [id number] [address] [place] [address] [place] Monocytes (Bld) [#/Vol] 0.91 10*3/uL High <0.87 [facility] Comment on above: Order Comment: Speci men Type: BLOOD SPECIMEN Ordering Facility: [facility] Address: [address] [place] [address] Performed By: #### 5 7021-8 #### [facility] CLIA [id number] [address] [place] [address] [place] Monocytes/100 WBC (Bld) 5.3 % Normal [facility] Comment on above: Order Comment: Speci men Type: BLOOD SPECIMEN Ordering Facility: [facility] Address: [address] [place] [address] Performed By: #### 5 7021-8 #### [facility] CLIA [id number] [address] [place] [address] [place] Neutrophils (Bld) [#/Vol] 15.20 10*3/uL High 1.45-7.50 [facility] Comment on above: Order Comment: Speci men Type: BLOOD SPECIMEN Ordering Facility: [facility] Address: [address] [place] [address] Performed By: #### 5 7021-8 #### [facility] CLIA [id number] [address] [place] [address] [place] Neutrophils/100 WBC (Bld) 88.6 % Normal [facility] Comment on above: Order Comment: Speci men Type: BLOOD SPECIMEN Ordering Facility: [facility] Address: [address] [place] [address] Performed By: #### 5 7021-8 #### [facility] CLIA [id number] [address] [place] [address] [place] Nucleated RBC (Bld) [#/Vol] 10*3/uL Normal <0.01 [facility] Comment on above: Order Comment: Speci men Type: BLOOD SPECIMEN Ordering Facility: [facility] Address: [address] [place] [address] Performed By: #### 5 7021-8 #### [facility] CLIA [id number] [address] [place] [address] [place] Nucleated RBC/100 WBC (Bld) [Ratio] 0.0 /100 WBC Normal [facility] Comment on above: Order Comment: Speci men Type: BLOOD SPECIMEN Ordering Facility: [facility] Address: [address] [place] [address] Performed By: #### 5 7021-8 #### [facility] CLIA [id number] [address] [place] [address] [place] Platelet mean volume (Bld) [Entitic vol] 9.0 fL Normal 9.0-12.7 [facility] Comment on above: Order Comment: Speci men Type: BLOOD SPECIMEN Ordering Facility: [facility] Address: [address] [place] [address] Performed By: #### 5 7021-8 #### [facility] CLIA [id number] [address] [place] [address] [place] Platelets (Bld) [#/Vol] 321 10*3/uL Normal 150-400 [facility] Comment on above: Order Comment: Speci men Type: BLOOD SPECIMEN Ordering Facility: [facility] Address: [address] [place] [address] Performed By: #### 5 7021-8 #### [facility] CLIA [id number] [address] [place] [address] [place] RBC (Bld) [#/Vol] 3.81 10*6/uL Low 3.90-5.20 [facility] Comment on above: Order Comment: Speci men Type: BLOOD SPECIMEN Ordering Facility: [facility] Address: [address] [place] [address] Performed By: #### 5 7021-8 #### [facility] CLIA [id number] [address] [place] [address] [place] WBC (Bld) [#/Vol] 17.15 10*3/uL High 3.70-11.00 [facility] Comment on above: Order Comment: Speci men Type: BLOOD SPECIMEN Ordering Facility: [facility] Address: [address] [place] [address] Performed By: #### 5 7021-8 #### [facility] CLIA [id number] [address] [place] [address] [place] CK SerPl-cCncon 08-13-2024 CK [Catalytic activity/Vol] 56 U/L Normal 42-196 [facility] Comment on above: Order Comment: Speci men Type: BLOOD SPECIMEN Ordering Facility: [facility] Address: [address] [place] [address] Performed By: #### 2 132-9, 2276-4, 05429-7, 2284-8 #### [facility] CLIA [id number] [address] [place] [id number] [place] [address] [place] Comprehensive metabolic 2000 panelon 08-13-2024 Albumin [Mass/Vol] 4.0 g/dL Normal 3.9-4.9 [facility] Comment on above: Order Comment: Speci men Type: BLOOD SPECIMEN Ordering Facility: [facility] Address: [address] [place] [address] Performed By: #### 2 132-9, 2276-4, 19241-6, 2284-8 #### [facility] CLIA [id number] [address] [place] [address] [place] ALP [Catalytic activity/Vol] 99 U/L Normal 34-123 [facility] Comment on above: Order Comment: Speci men Type: BLOOD SPECIMEN Ordering Facility: [facility] Address: [address] [place] [address] Performed By: #### 2 132-9, 2276-4, 46570-4, 2284-8 #### [facility] CLIA [id number] [address] [place] [address] [place] ALT [Catalytic activity/Vol] 15 U/L Normal 7-38 [facility] Comment on above: Order Comment: Speci men Type: BLOOD SPECIMEN Ordering Facility: [facility] Address: [address] [place] [address] Performed By: #### 2 132-9, 2276-4, 85428-1, 2284-8 #### [facility] CLIA [id number] [address] [place] [address] [place] Anion gap [Moles/Vol] 14 mmol/L Normal 8-15 [facility] Comment on above: Order Comment: Speci men Type: BLOOD SPECIMEN Ordering Facility: [facility] Address: [address] [place] [address] Performed By: #### 2 132-9, 2276-4, 30601-2, 2284-8 #### [facility] CLIA [id number] [address] [place] [address] [place] AST [Catalytic activity/Vol] 18 U/L Normal 13-35 [facility] Comment on above: Order Comment: Speci men Type: BLOOD SPECIMEN Ordering Facility: [facility] Address: [address] [place] [address] Performed By: #### 2 132-9, 2276-4, 12299-5, 2284-8 #### [facility] CLIA [id number] [address] [place] [address] [place] Bilirubin [Mass/Vol] 0.2 mg/dL Normal 0.2-1.3 [facility] Comment on above: Order Comment: Speci men Type: BLOOD SPECIMEN [facility] SYSTEM Address: [address] [place] [address] Performed By: #### 2 132-9, 2276-4, 06148-0, 2284-8 #### [facility] CLIA [id number] [address] [place] [address] [place] Calcium [Mass/Vol] 9.2 mg/dL Normal 8.5-10.2 [facility] Comment on above: Order Comment: Speci men Type: BLOOD SPECIMEN Ordering Facility: [facility] Address: [address] [place] [address] Performed By: #### 2 132-9, 2276-4, 65968-8, 2284-8 #### [facility] CLIA [id number] [address] [place] [address] [place] Chloride [Moles/Vol] 96 mmol/L Low 98-107 [facility] Comment on above: Order Comment: Speci men Type: BLOOD SPECIMEN Ordering Facility: [facility] Address: [address] [place] [address] Performed By: #### 2 132-9, 2276-4, 58909-0, 2284-8 #### [facility] CLIA [id number] [address] [place] [address] [place] CO2 [Moles/Vol] 24 mmol/L Normal 22-30 [facility] Comment on above: Order Comment: Speci men Type: BLOOD SPECIMEN Ordering Facility: [facility] Address: [address] [place] [address] Performed By: #### 2 132-9, 2276-4, 73599-1, 2283-8 #### [facility] CLIA [id number] [address] [place] [address] [place] Creatinine [Mass/Vol] 0.87 mg/dL Normal 0.58-0.96 [facility] Comment on above: Order Comment: Fan meade Type: BLOOD SPECIMEN Ordering Facility: [facility] Address: [address] [place] [address] Performed By: #### 2 132-9, 2276-4, 28229-3, 2283-8 #### [facility] CLIA [id number] [address] [place] [address] [place] Creatinine and Glomerular filtration rate.predicted panel (S/P/Bld) 64 mL/min/1.73m??? Normal >=60 [facility] Comment on above: Order Comment: Fan meade Type: BLOOD SPECIMEN Ordering Facility: [facility] Address: [address] [place] [address] Result Comment: Hilda mated Glomerular Filtration Rate [...] reflect actual GFR. Performed By: #### 2 132-9, 2276-4, 72372-7, 8 #### [facility] CLIA [id number] [address] [place] [address] [place] Glucose [Mass/Vol] 212 mg/dL High 74-99 [facility] Comment on above: Order Comment: Fan meade Type: BLOOD SPECIMEN Ordering Facility: [facility] Address: [address] [place] [address] Result Comment: The [place] Diabetes Association (ADA) provides guidance for cutoff [...] Standards of Medical Care in Diabetes 2016, [place] Diabetes Association. Diabetes Care. 2016.39(Suppl 1). Performed By: #### 2 132-9, 2276-4, 65669-1, 2283-8 #### [facility] CLIA [id number] [address] [place] [address] [place] Potassium [Moles/Vol] 4.6 mmol/L Normal 3.7-5.1 [facility] Comment on above: Order Comment: Fan meade Type: BLOOD SPECIMEN Ordering Facility: [facility] Address: [address] [place] [address] Performed By: #### 2 132-9, 6-4, 93932-0, 2283-8 #### [facility] CLIA [id number] [address] [place] [address] [place] Protein [Mass/Vol] 6.5 g/dL Normal 6.3-8.0 [facility] Comment on above: Order Comment: Fan meade Type: BLOOD SPECIMEN Ordering Facility: [facility] Address: [address] [place] [address] Performed By: #### 2 132-9, 2276-4, 57671-6, 2283-8 #### [facility] CLIA [id number] [address] [place] [address] [place] Sodium [Moles/Vol] 134 mmol/L Low 136-144 [facility] Comment on above: Order Comment: Fan men Type: BLOOD SPECIMEN Ordering Facility: [facility] Address: [address] [place] [address] Performed By: #### 2 132-9, 2276-4, 04355-9, 2284-8 #### [facility] CLIA [id number] [address] [place] [address] [place] Urea nitrogen [Mass/Vol] 29 mg/dL High 7-21 [facility] Comment on above: Order Comment: Speci men Type: BLOOD SPECIMEN Ordering Facility: [facility] Address: [address] [place] [address] Performed By: #### 2 132-9, 2276-4, 39240-3, 2284-8 #### [facility] CLIA [id number] [address] [place], [place] [address] [place] ECG COMPLETEon 08-13-2024 ECG COMPLETE Ventricular Rate : 9 7 BPM Atrial Rate : 97 BPM P-R Interval : 174 ms QRS Duration : 78 ms Q-T Interval : 328 ms QTC Calculation(Bazett) : 416 ms Calculated P [place] : 64 degrees Calculated R [place] : 29 degrees Calculated T [place] : 68 degrees SINUS RHYTHM WITH PREMATURE ATRIAL COMPLEXES CANNOT EXCLUDE ANTERIOR MYOCARDIAL INFARCTION , AGE UNDETERMINED ABNORMAL ECG 1402 08/13/2024 Confirmed by DO ROMO ALAN ([id number]), tape editor CAROLINA MERRITT ([id number]) on 08/14/2024 8:29:13 AM NAME : YUSUF MEDINA PID : [id number] : 1935 Gender : Female Race : ORD : [id number] Procedure Date : Aug 13 2024 14:04:37 Edit Date : Aug 14 2024 08:29:17 Diagnosis: SINUS RHYTHM WITH PREMATURE ATRIAL COMPLEXES CANNOT EXCLUDE ANTERIOR MYOCARDIAL INFARCTION , AGE UNDETERMINED ABNORMAL ECG 1402 08/13/2024 Confirmed by DO ROMO ALAN ([id number]), tape editor CAROLINA MERRITT ([id number]) on 08/14/2024 8:29:13 AM Test Reason : Chest Pain Location : 215 : [id number] Overread By : DO ROMO ALAN Edited By : CAROLINA MERRITT Referred By : , Acquired by : Ally MURGUIA [facility] ED NOTEon 08-13-2024 ED NOTE HNO ID: [id number] Author: ELIF SAM, LIT Service: Nursing Author Type: Registered Nurse Type: ED Notes Filed: 08/13/2024 17:42 Note Text: Pt given discharge instructions. Verbalized understanding. Pt taken to daughters car by wheelchair. Normal [facility] ED NOTE HNO ID: [id number] Author: KONSTANTIN FLORES, LIT Service: Nursing Author Type: Registered Nurse [...] staff of any changes in condition. Normal [facility] ED PROV NOTEon 08-13-2024 ED PROV NOTE HNO ID: [id number] Author: MARIUSZ ROMO DO Service: Emergency Medicine [...] better. Her daughter is translating. They speak Qatari. 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 Patient does not have headache. No posterior head or neck pain. No chest pain. No thoracic lumbar back pain. No abdominal pain. No dysuria. No urinary frequency. No diarrhea. No constipation. She really is without complaints. She believes she has been eating fine. Her daughter adds that sometimes when they put her pill city planner medications together she takes both a.m. [...] - REMV CATARACT EXTRACAP,INSERT LENS Bilateral 2020 [facility] FAMILY HISTORY Problem Relation Age of [...] / D (more content not included)... Normal [facility] HIGH SENSITIVITY TROPONIN T (INITIAL)on 08-13-2024 Troponin T.cardiac High sensitivity method [Mass/Vol] 30 ng/L High <12 [facility] Comment on above: Order Comment: Speci men Type: BLOOD SPECIMEN Ordering Facility: [facility] Address: [address] [place] [address] Performed By: #### 2 132-9, 2276-4, 98968-5, 2284-8 #### [facility] CLIA [id number] [address] [place] [address] [place] HIGH SENSITIVITY TROPONIN T (SECOND)on 08-13-2024 Troponin T.cardiac High sensitivity method [Mass/Vol] 29 ng/L High <12 [facility] Comment on above: Order Comment: Speci men Type: BLOOD SPECIMENOrdering Facility: [facility] Address: [address] [place] [address] Performed By: #### L [id number] ####KATHIEMINDY [facility] [id number] [place] [address] [place] PT panel Coag (PPP)on 2023 INR Coag (PPP) [Relative time] 1.0 {INR} Normal 0.9-1.3 [facility] Comment on above: Order Comment: Fan meade Type: BLOOD SPECIMENOrdering Facility: [facility] Address: [address] [place] [address] Result Comment: Kendra min K Antagonist (VKA) Therapeutic Range: INR 2 to 3 (Target INR of 2.5) Note: For patients treated with VKA drugs, such as warfarin, the [place] College of Chest Physicians 2012 Guideline recommends [...] TURNER, et al. Chest 2012, 141:7S-47S John RA, et al. [facility] 2017, 70: 252-289 Performed By: #### 3 4528-0 ####JENNIFER [facility] [id number] [place] [address] [place] PT Coag (PPP) [Time] 10.6 s Normal 9.7-13.0 [facility] Comment on above: Order Comment: Fan meade Type: BLOOD SPECIMENOrdering Facility: [facility] Address: [address] [place] [address] Performed By: #### 3 4528-0 ####CHAZRIAZ [facility] [id number] [place] [address] [place] Urinalysis complete panel (U )on 08-13-2024 Bilirubin Ql (U) Negative Normal Negative [facility] Comment on above: Order Comment: Speci men Type: BLOOD SPECIMEN Ordering Facility: [facility] Address: [address] [place] [address] Performed By: #### 2 132-9, 2276-4, 11362-4, 228-8 #### [facility] CLIA [id number] [address] [place] [address] [place] Clarity (Unsp spec) Clear Normal Clear [facility] Comment on above: Order Comment: Speci men Type: BLOOD SPECIMEN Ordering Facility: [facility] Address: [address] [place] [address] Performed By: #### 2 132-9, 6-4, 14107-9, 2283-8 #### [facility] CLIA [id number] [address] [place] [address] [place] Color (U) Yellow Normal yellow [facility] Comment on above: Order Comment: Speci men Type: BLOOD SPECIMEN Ordering Facility: [facility] Address: [address] [place] [address] Performed By: #### 2 132-9, 6-4, 12662-0, 2283-8 #### [facility] CLIA [id number] [address] [place] [address] [place] Epithelial cells LM.HPF (Urine sed) [#/Area] Few Normal [facility] Comment on above: Order Comment: Speci men Type: BLOOD SPECIMEN Ordering Facility: [facility] Address: [address] [place] [address] Result Comment: Few Performed By: #### 2 132-9, 2276-4, 66457-6, 228-8 #### [facility] CLIA [id number] [address] [place] [address] [place] Glucose Test strip (U) [Mass/Vol] Negative Normal Trace, Negative [facility] Comment on above: Order Comment: Speci men Type: BLOOD SPECIMEN Ordering Facility: [facility] Address: [address] [place] [address] Performed By: #### 2 132-9, 6-4, 51453-6, 8 #### [facility] CLIA [id number] [address] [place] [address] [place] Hemoglobin Ql (U) Trace Normal Negative, Trace [facility] Comment on above: Order Comment: Speci men Type: BLOOD SPECIMEN Ordering Facility: [facility] Address: [address] [place] [address] Performed By: #### 2 132-9, 6-4, 59265-4, 8 #### [facility] CLIA [id number] [address] [place] [address] [place] Ketones Ql (U) Negative Normal Negative, Trace [facility] Comment on above: Order Comment: Speci men Type: BLOOD SPECIMEN Ordering Facility: [facility] Address: [address] [place] [address] Performed By: #### 2 132-9, 6-4, 15150-7, 8 #### [facility] CLIA [id number] [address] [place] [address] [place] Leukocyte esterase Test strip Ql (U) Negative Normal Negative, 25 Vani/uL [facility] Comment on above: Order Comment: Speci men Type: BLOOD SPECIMEN Ordering Facility: [facility] Address: [address] [place] [address] Performed By: #### 2 132-9, 6-4, 16798-4, 8 #### [facility] CLIA [id number] [address] [place] [address] [place] Nitrite Ql (U) Negative Normal Negative [facility] Comment on above: Order Comment: Speci men Type: BLOOD SPECIMEN Ordering Facility: [facility] Address: [address] [place] [address] Performed By: #### 2 132-9, 2276-4, 90899-1, 228-8 #### [facility] CLIA [id number] [address] [place] [address] [place] pH (U) 6.0 [pH] Normal 5.0-8.0 [facility] Comment on above: Order Comment: Speci men Type: BLOOD SPECIMEN Ordering Facility: [facility] Address: [address] [place] [address] Performed By: #### 2 132-9, 2276-4, 10548-0, 228-8 #### [facility] CLIA [id number] [address] [place] [address] [place] Protein (U) [Mass/Vol] 1+ Abnormal Trace , Negative [facility] Comment on above: Order Comment: Speci men Type: BLOOD SPECIMEN Ordering Facility: [facility] Address: [address] [place] [address] Performed By: #### 2 132-9, 6-4, 28666-6, 2283-8 #### [facility] CLIA [id number] [address] [place] [address] [place] RBC LM.HPF (Urine sed) [#/Area] 3-5 /HPF Abnormal 0-3 /HPF [facility] Comment on above: Order Comment: Speci men Type: BLOOD SPECIMEN Ordering Facility: [facility] Address: [address] [place] [address] Performed By: #### 2 132-9, 2276-4, 77912-7, 228-8 #### [facility] CLIA [id number] [address] [place] [address] [place] Specific gravity (U) [Rel density] 1.021 Normal 1.005-1.030 [facility] Comment on above: Order Comment: Speci men Type: BLOOD SPECIMEN Ordering Facility: [facility] Address: [address] [place] [address] Performed By: #### 2 132-9, 2276-4, 23671-0, 2284-8 #### [facility] CLIA [id number] [address] [place] [address] [place] Urobilinogen Ql (U) Normal Normal Normal [facility] Comment on above: Order Comment: Speci men Type: BLOOD SPECIMEN Ordering Facility: [facility] Address: [address] [place] [address] Performed By: #### 2 132-9, 2276-4, 79338-3, 2284-8 #### [facility] CLIA [id number] [address] [place] [address] [place] WBC LM.HPF (Urine sed) [#/Area] 0-5 /HPF Normal 0-5 /HPF [facility] Comment on above: Order Comment: Speci men Type: BLOOD SPECIMEN Ordering Facility: [facility] Address: [address] [place] [address] Performed By: #### 2 132-9, 2276-4, 00820-6, 2284-8 #### [facility] CLIA [id number] [address] [place] [address] [place] XR CHEST 1V [...] of bilateral shoulders IMPRESSION: Bilateral basilar atelectasis Principal Cloud Architect: PHU Transcribe Date/Time: Aug 13 2024 4:03P Dictated by : GILLIAN ELLIOTT MD This examination was interpreted and the report reviewed and electronically signed by: GILLIAN ELLIOTT MD on Aug 13 2024 4:04PM EST [id number] Normal [facility] CNOVon 07-12-2024 CNOV Office Visit ([facility] ) YUSUF MEDINA ([id number]) 1935 F ALBERTO Date Time Provider Department 07/12/24 9:40 AM MIGDALIA CRAMER [facility] During your visit today, we recorded the [...] [D50.9] Order(s):BASIC METABOLIC PANEL [SQBMP] Order #: [id number] FUTURE HEMOGLOBIN A1C [TTABC6K] Order #: [id number] FUTURE ALBUMIN/CREATININE RATIO, URINE [SQUACR] Order #: [id number] FUTURE COMPLETE BLOOD COUNT [SQCBC] Order #: [id number] FUTURE THYROID STIMULATING HORMONE [SQTSH] Order #: [id number] FUTURE Prescriptions as of 07/12/2024 - pioglitazone [...] diclofenac (VOLTARE (more content not included)... Normal [facility] Basic metabolic 2000 panelon 07-11-2024 Anion gap [Moles/Vol] 14 mmol/L Normal 8-15 [facility] Comment on above: Order Comment: Speci men Type: BLOOD SPECIMENOrdering Facility: [facility] Address: [address] [place] [address] [place] [id number] Performed By: #### 2 4321-2 ####ADRYAN [facility] [id number] [place] [address] [place] Calcium [Mass/Vol] 9.9 mg/dL Normal 8.5-10.2 [facility] Comment on above: Order Comment: Speci men Type: BLOOD SPECIMENOrdering Facility: [facility] Address: [address] [place] [address] Performed By: #### 2 4321-2 ####ADRYAN [facility] [id number] [place] [address] [place] Chloride [Moles/Vol] 101 mmol/L Normal 98-107 [facility] Comment on above: Order Comment: Speci men Type: BLOOD SPECIMENOrdering Facility: [facility] Address: [address] [place] [address] Performed By: #### 2 4321-2 ####ADRYAN [facility] [id number] [place] [address] [place] CO2 [Moles/Vol] 20 mmol/L Low 22-30 [facility] Comment on above: Order Comment: Speci men Type: BLOOD SPECIMENOrdering Facility: [facility] Address: [address] [place] [address] Performed By: #### 2 4321-2 ####ADRYAN [facility] [id number] [place] [address] [place] Creatinine [Mass/Vol] 0.93 mg/dL Normal 0.58-0.96 [facility] Comment on above: Order Comment: Speci men Type: BLOOD SPECIMENOrdering Facility: [facility] Address: [address] [place] [address] Performed By: #### 2 4321-2 ####YAREDSHIEN [facility] [id number] [place] [address] [place] Creatinine and Glomerular filtration rate.predicted panel (S/P/Bld) 59 mL/min/1.73m??? Low >=60 [facility] Comment on above: Order Comment: Fan meade Type: BLOOD SPECIMENOrdering Facility: [facility] Address: [address] [place] [address] Result Comment: Hilda mated Glomerular Filtration Rate [...] GFR. Performed By: #### 2 4321-2 ####ADRYAN [facility] [id number] [place] [id number] [place] Glucose [Mass/Vol] 244 mg/dL High 74-99 [facility] Comment on above: Order Comment: Fan meade Type: BLOOD SPECIMENOrdering Facility: [facility] Address: [address] [place] [address] Result Comment: The [place] Diabetes Association (ADA) provides guidance for cutoff [...] Standards of Medical Care in Diabetes 2016, [place] Diabetes Association. Diabetes Care. 2016.39(Suppl 1). Performed By: #### 2 4321-2 ####ADRYAN [facility] [id number] [place] [id number] [place] Potassium [Moles/Vol] 5.2 mmol/L High 3.7-5.1 [facility] Comment on above: Order Comment: Fan meade Type: BLOOD SPECIMENOrdering Facility: [facility] Address: [address] [place] [address] Performed By: #### 2 4321-2 ####STRONGADEN [facility] [id number] [place] [id number] [place] Sodium [Moles/Vol] 135 mmol/L Low 136-144 [facility] Comment on above: Order Comment: Speci men Type: BLOOD SPECIMENOrdering Facility: [facility] Address: [address] [place] [address] Performed By: #### 2 4321-2 ####ADRYAN [facility] [id number] [place] [address] [place] Urea nitrogen [Mass/Vol] 30 mg/dL High 7-21 [facility] Comment on above: Order Comment: Katei men Type: BLOOD SPECIMENOrdering Facility: [facility] Address: [address] [place] [address] Performed By: #### 2 4321-2 ####ADRYAN [facility] [id number] [place] [address] [place] HbA1c (Bld)on 07-11-2024 Average glucose Estimated from glycated hemoglobin (Bld) [Mass/Vol] 189 mg/dL Normal [facility] Comment on above: Order Comment: Katei men Type: BLOOD SPECIMENOrdering Facility: [facility] Address: [address] [place] [address] Result Comment: eAG: (Estimated average glucose) is a calculated value from HgbA1c and is retail account representative of the average blood glucose level in the last 2-3 month period. Performed By: #### 5 5454-3 ####[facility] [id number] [facility] [id number] [place] [address] [place] HbA1c (Bld) [Mass fraction] 8.2 % High 4.3-5.6 [facility] Comment on above: Order Comment: Katei men Type: BLOOD SPECIMENOrdering Facility: [facility] Address: [address] [place] [address] Result Comment: Amer [place] Diabetes Association guidelines indicate that patients with HgbA1c in the range 5.7-6.4% are at increased risk for development of diabetes, and intervention by lifestyle modification may be beneficial. HgbA1c greater or equal to 6.5% is considered diagnostic of diabetes. Performed By: #### 5 5454-3 ####[facility] [id number] [facility]UEDES[facility] [id number] [id number] [facility] [place] LIPID PANEL, NONFASTINGon Cholesterol [Mass/Vol] 151 mg/dL Normal <200 [facility] Comment on above: Order Comment: Fan meade Type: BLOOD SPECIMEN Ordering Facility: [facility] Address: [address] [place] [address] Result Comment: <200 mg/dL, Desirable 200-239 mg/dL, Borderline high >239 mg/dL, High Performed By: #### 5 7021-8 #### JENNIFER [facility] CLIA [id number] [facility] [facility] HDL CHOLESTEROL, NF 59 mg/dL Normal >39 [facility] Comment on above: Order Comment: Fan meade Type: BLOOD SPECIMEN Ordering Facility: [facility] Address: [address] [place] [address] Result Comment: 40-5 9 mg/dL, Acceptable >59 mg/dL, High: Negative risk factor for coronary heart disease <40 mg/dL, Low: Positive risk factor for coronary heart disease Performed By: #### 5 7021-8 #### JENNIFER [facility] CLIA [id number] [address] [place] [address] [place] LDL CHOLESTEROL, NF 71 mg/dL Normal <100 [facility] Comment on above: Order Comment: Fan [facility] Type: BLOOD SPECIMEN Ordering Facility: [facility] Address: [address] [place] [address] Result Comment: <100 mg/dL, Optimal 100-129 mg/dL, Near optimal/above optimal 130-159 mg/dL, Borderline high 160-189 mg/dL, High >189 mg/dL, Very high Secondary prevention optimal LDL Cholesterol levels are recommended to be < 70 mg/dL Performed By: #### 5 7021-8 #### JENNIFER [facility] CLIA [id number] [place] [address] [place] LDL/HDL RATIO, NF 1.20 mg/dL Normal <2.54 [facility] Comment on above: Order Comment: Fan meade Type: BLOOD SPECIMEN Ordering Facility: [facility] Address: [address] [place] [address] Result Comment: Isabella johnson: 1. National Cholesterol Education Program ATP III Guideline At-A-Glance Quick Desk Reference: National Heart, Lung, and Blood [place]. National Institutes of Health. 2001: NIH Publication No. 01-3305. 2. An International Atherosclerosis Society position paper: global recommendations for the management of dyslipidemia: executive summary, Atherosclerosis. 2014: 232(2):410-413. Performed By: #### 5 7021-8 #### CHAZMINDY [facility] CLIA [id number] [address] [place] [address] [place] NON HDL CHOL, NF 92 mg/dL Normal <130 [facility] Comment on above: Order Comment: Fan meade Type: BLOOD SPECIMEN Ordering Facility: [facility] Address: [address] [place] [address] Result Comment: <130 mg/dL, Optimal 130-159 mg/dL, Near optimal/above optimal 160-189 mg/dL, Borderline high 190-219 mg/dL, High >219 mg/dL, Very high Secondary prevention optimal non HDL Cholesterol levels are recommended to be <100 mg/dL Performed By: #### 5 7021-8 #### JENNIFER [facility] CLIA [id number] [address] [place] [address] [place] T CHOL/HDL RATIO NF 2.56 mg/dL Normal <5.10 [facility] Comment on above: Order Comment: Fan meade Type: BLOOD SPECIMEN Ordering Facility: [facility] Address: [address] [place] [address] Performed By: #### 5 7021-8 #### [facility] CLIA [id number] [address] [place] [address] [place] TRIGLYCERIDES, NF 107 mg/dL Normal <150 [facility] Comment on above: Order Comment: Kateleroy meade Type: BLOOD SPECIMEN Ordering Facility: [facility] Address: [address] [place] [address] Result Comment: <150 mg/dL, Normal 150-199 mg/dL, Borderline high 200-499 mg/dL, High >499 mg/dL, Very high Performed By: #### 5 7021-8 #### [facility] CLIA [id number] [address] [place] [address] OF [place] VLDL CHOLESTEROL, NF 21 mg/dL Normal <30 [facility] Comment on above: Order Comment: Fan halina Type: BLOOD SPECIMEN Ordering Facility: [facility] Address: [address] [place] [address] Performed By: #### 5 7021-8 #### [facility] CLIA [id number] [address] [place] [address] OF [facility] Home Health Progress Noteon 12-09-2021 Home Health Progress Note Follow up call placed to patient regarding HHC. Spoke with Yusuf regarding services. Patient states no services needed and hung up on caller. Will cancel referral to [facility] BASICMETAon 12-07-2021 GFR AA 45 [facility] Comment on above: Result Comment: Afri can [place] GFR Calc Medical judgement is necessary to [...] for drug dosing. Performed By: #### C D:[id number], 2193411, 809754, 788408, 828607, 504414 #### [facility] [address] [place] [address] Gauger Delivery: Robert Ybarra MD Glomerular Filtration Rate 37 mL/min/1.73m? Normal [facility] Comment on above: Result Comment: Non [...] for drug dosing. Performed By: #### C D:[id number], 5387435, 817656, 720379, 236169, 995875 #### [facility] [address] [place] [address] Gauger Delivery: oRbert Ybarra MD Osmolality [Osmolality] 287 mosm/kg Normal 275-[address] [facility] Comment on above: Performed By: #### C D:[id number], 1502535, 360175, 860592, 563540, 002570 #### [facility] [address] [place] [address] Gauger Delivery: Robert Ybarra MD Urea nitrogen/Creatinine [Mass ratio] 19.1 mg/mg Normal [facility] Comment on above: Performed By: #### C D:[id number], 6560016, 874405, 498394, 955270, 896954 #### [facility] [address] [place] [address] 685[address] Gauger Delivery: Robert Ybarra MD Calcium [Mass/Vol] 9.7 mg/dL Normal 8.5-10.5 [facility] Comment on above: Performed By: #### C D:[id number], 1266293, 780834, 790655, 718800, 248830 #### [facility] [address] [place] [address] 10926 Gauger Delivery: Robert Ybarra MD Chloride [Moles/Vol] 107 mmol/L Normal 100-109 [facility] Comment on above: Performed By: #### C D:[id number], 1943777, 214691, 670066, 474039, 358027 #### [facility] [address] [place] [address] Gauger Delivery: Robert Ybarra MD CO2 [Moles/Vol] 25.9 mmol/L Normal 21.0-32.0 [facility] Comment on above: Performed By: #### C D:[id number], 9807994, 684623, 305789, 324910, 219364 #### [facility] [address] [place] [address] 514[address] Gauger Delivery: Robert Ybarra MD Creatinine [Mass/Vol] 1.4 mg/dL High 0.6-1.0 [facility] Comment on above: Performed By: #### C D:[id number], 8662297, 981514, 340091, 810492, 289262 #### [facility] [address] [place] [address] Gauger Delivery: Robert Ybarra MD Glucose [Mass/Vol] 177 mg/dL High 72-100 [facility] Comment on above: Result Comment: Shireen puncture should occur prior to sulfasalazine administration due to the potential for falsely depressed results. Venipuncture should occur prior to sulfapyridine administration due to the potential falsely elevated results. Baseline assay values before administration of sulfasalazine and sulfapyridine therapy would not be affected. Performed By: #### C D:[id number], 4165852, 848518, 895360, 211797, 884338 #### [facility] [address] [place] [address] Gauger Delivery: Robert Ybarra MD Potassium [Moles/Vol] 4.7 mmol/L Normal 3.5-5.1 [facility] Comment on above: Performed By: #### C D:[id number], 8785570, 888603, 041870, 436701, 934978 #### [facility] [address] [place] [address] Gauger Delivery: Robert Ybarra MD Sodium [Moles/Vol] 139 mmol/L Normal 135-145 [facility] Comment on above: Performed By: #### C D:[id number], 2490437, 941802, 518937, 879077, 040225 #### [facility] [address] [place] [address] Gauger Delivery: Robert Ybarra MD Urea nitrogen [Mass/Vol] 26 mg/dL High 10-[address] [facility] Comment on above: Performed By: #### C D:[id number], 9234520, 068151, 913505, 601997, 064285 #### [facility] [address] [place] [address] Gauger Delivery: Robert Ybarra MD CPKon 12-07-2021 CPK 1185 unit/L Critically abnormal 26-[address] [facility] Comment on above: Result Comment: Crit ical Result(s) called at: 13:24:37 on 12/07/2021 by: MIRNA rechecked, RBR to: Dr. Beckford Performed By: #### C D:[id number], 8564369, 150314, 275623, 193409, 538592 #### [facility] [address] [place] [address] Gauger Delivery: Robert Ybarra MD Utilization Review Noteon Utilization Review Note Inpatient recomm ended. Inpatient ordered. Patient with #1 acute hypothermia. YUSUF MEDINA 12/03/21 [id number] CCE 200 INPT UPDATED [facility] TO [facility] MEDICARE Verified admit thru the portal [id number] PATIENT ALREADY DISCHARGED AT THE TIME OF THIS REVIEW. Faxed Normal [facility] Discharge Educationon 2021 Discharge Education Patient Education Material Normal [facility] Inpatient Patient Summaryon 12-05-2021 Inpatient Patient Summary [facility] Discharge Instructions [address] [place] [address] \\.br\\(Patient Copy)\\.br\\ \\.br\\ \\.br\\Name: YUSUF MEDINA : 1935 \\.br\\Diagnosis: Abrasion of right elbow; Benign essential hypertension; Chronic kidney disease (CKD), stage III (moderate); Contusion of right thigh; Diabetes mellitus type II, controlled; acute Hypothermia \\.br\\ \\.br\\Allergies: No Known Allergies\\.br\\ \\.br\\Registration Date: 12/03/21\\.br\\\\.br\\\\.br \\ \\.br\\ Current Date Time: 12/05/2021 07:42:18 \\.br\\ \\.br\\Address: [address] [place] [address] \\.br\\ \\.br\\ \\.br\\Primary Care Provider: \\.br\\Name: RADHA CRAMER\\.br\\ \\.br\\ \\.br\\Thank you for choosing [facility] for your care. You are very important to us. Our goal is to demonstrate our high quality medical care and provide you with a very good patient experience.\\.br\\ You may receive a survey about our service. Please take the time to complete the survey and return it so we can continue to enhance our service.\\.br\\ Thank you again for allowing [facility] to care for your medical needs. [...] in more information on smoking cessation, contact [facility]?s Tobacco Cessation [facility] [phone]\\.br\\ \\.br\\ DIET Eat a variety of nutritious [...] Connection / Physician Referral and Health Information [phone].\\.br\\[facility] [place] 9-276-KOH-BEAT ( )\\.br\\S easons of a Woman?s Life [phone] \\.br\\ \\.br\\ Call immediately if you or [...] discomfort: M (more content not included)... Normal [facility] AUTO DIFFon 12-04-2021 Baso Count 0.05 x1000 Normal 0.00-0.[address] [facility] Comment on above: Performed By: #### 1 98241, 702675, 934695, 1605619 ####[facility] [address] [place] [address] Medical Director: Robert Ybarra MD Basos % 0.5 % Normal [facility] Comment on above: Performed By: #### 1 , 411685, 524154, 5299743 ####[facility] [address] [place] [address] Medical Director: Robert Ybarra MD Eos Count 0.01 x1000 Normal 0.00-0.[address] [facility] Comment on above: Performed By: #### 1 , 240676, 485860, 1293773 ####[facility] [address] [place] [address] Medical Director: Robert Ybarra MD Eosinophils/100 WBC (Bld) 0.1 % Normal [facility] Comment on above: Performed By: #### 1 , 311244, 572797, 3233061 ####[facility] [address] [place] [address] Medical Director: Robert Ybarra MD Lymph Count 1.19 x1000 Low 1.20-4.[address] [facility] Comment on above: Performed By: #### 1 , 311311, 818679, 3348533 ####[facility] [address] [place] [address] Medical Director: Robert Ybarra MD Lymphocytes/100 WBC (Bld) 11.8 % Normal [facility] Comment on above: Performed By: #### 1 , 726283, 297896, 3084905 ####[facility] [address] [place] [address] Medical Director: Robert Ybarra MD [place] Count 0.57 x1000 Normal 0.10-1.[address] [facility] Comment on above: Performed By: #### 1 , 756689, 201277, 3380075 ####[facility] [address] [place] [address] Medical Director: Robert Ybarra MD Monocytes/100 WBC (Bld) 5.6 % Normal [facility] Comment on above: Performed By: #### 1 , 857484, 370494, 6246556 ####[facility] [address] [place] [address] Medical Director: Robert Ybarra MD Neutrophil Count (ANC) 8.28 x1000 Normal 1.40-8.80 [facility] Comment on above: Performed By: #### 1 , 973277, 379153, 8256260 ####[facility] [address] [place] [address] Medical Director: Robert Ybarra MD Neutrophils/100 WBC (Bld) 82.0 % Normal [facility] Comment on above: Performed By: #### 1 , 548426, 267264, 5936264 ####[facility] [address] [place] [address] Medical Director: Robert Ybarra MD B12 FOLATEon 12-04-2021 Cobalamin (Vitamin B12) [Mass/Vol] 455 pg/mL Normal 193-[address] [facility] Comment on above: Performed By: #### 1 , 777385, 854773, 5175334 ####[facility] [address] [place] [address] Medical Director: Robert Ybarra MD FOLATE 14.3 ng/mL Normal 3.1-17.[address] [facility] Comment on above: Performed By: #### 1 , 035518, 982091, 7969047 ####[facility] [address] [place] [address] Medical Director: Robert Ybarra MD BLD GASon 12-04-2021 MAGGIE TEST [facility] Comment on above: Performed By: #### C D:[id number], 1169639, 840700, 972132, 168471, 741339 #### [facility] [address] [place] [address] Gauger Delivery: Robert Ybarra MD Base Excess -5.0 mmol/L [facility] Comment on above: Performed By: #### C D:[id number], 6923534, 499862, 172782, 478109, 548032 #### [facility] [address] [place], [place] [address] Gauger Delivery: Robert Ybarra MD [facility] [address] Comment on above: Performed By: #### C D:915176500, 2994378, 506550, 746950, 737252, 332535 #### [facility] [address] [place], [place] [address] Gauger Delivery: Robert Ybarra MD FIO2 36 % [facility] Comment on above: Performed By: #### C D:898606273, 9720495, 776449, 625230, 163209, 506212 #### [facility] [address] [place], [place] [address] Gauger Delivery: Robert Ybarra MD HCO3 (Bld) [Moles/Vol] 19.8 mmol/L Low 22.0-26.0 [facility] Comment on above: Performed By: #### C D:030054656, 7693923, 581319, 819665, 918309, 514420 #### [facility] [address] [place] [address] Gauger Delivery: [facility] Comment on above: Performed By: #### C D:370710761, 1063918, 802792, 345163, 570847, 025000 #### [facility] [address] [place] [address] Gauger Delivery: Robert Ybarra MD O2 L/M 4.[address] [facility] Comment on above: Performed By: #### C D:[id number], 5199424, 914695, 656713, 990937, 452481 #### [facility] [address] [place] [address] Gauger Delivery: Robert Ybarra MD Oxygen (Bld) [Partial pressure] 82.0 mm[Hg] Normal 80.0-100.[address] [facility] Comment on above: Performed By: #### C D:761554194, 5011947, 315144, 741761, 184277, 645276 #### [facility] [address] [place] [address] 536[address] Gauger Delivery: Robert Ybarra MD Oxygen saturation in Blood 94.1 % Normal [facility] Comment on above: Performed By: #### C D:230655733, 0853560, 913102, 119714, 785525, 435476 #### [facility] [address] [place] [address]64[address] Gauger Delivery: Robert Ybarra MD PCO2 35.6 mmHg Normal 35.0-45.[address] [facility] Comment on above: Performed By: #### C D:821756224, 9358163, 064477, 966211, 305625, 437733 #### [facility] [address] [place] [address] 470[address] Gauger Delivery: Robert Ybarra MD PEEP 0.0 cmH20 Normal [facility] Comment on above: Performed By: #### C D:101968595, 6225777, 025839, 621904, 452997, 794819 #### [facility] [address] [place] [address]7591 Gauger Delivery: Robert Ybarra MD pH (Bld) 7.363 [pH] Normal 7.350-7.[address] [facility] Comment on above: Performed By: #### C D:992463787, 9431995, 347793, 358786, 606849, 855421 #### [facility] [address] [place] [address] Gauger Delivery: Robert Ybarra MD PO2/FiO2 Ratio 228 Low 300-[address] [facility] Comment on above: Performed By: #### C D:998812739, 4826790, 975249, 298277, 372317, 833958 #### [facility] [address] [place] [address] Gauger Delivery: Robert Ybarra MD Pressure Support. 0 cmH20 Normal [facility] Comment on above: Performed By: #### C D:[id number], 6229865, 418029, 314409, 547215, 975133 #### [facility] [address] [place] [address] 72766 Gauger Delivery: Robert Ybarra MD RATE 0 bpm Normal [facility] Comment on above: Performed By: #### C D:423501190, 9527726, 209408, 933818, 142174, 766200 #### [facility] [address] [place] [address] 95118 Gauger Delivery: Robert Ybarra MD TEMP 37.0 degC Normal <=37.[address] [facility] Comment on above: Performed By: #### C D:[id number], 0058765, 689517, 799285, 940103, 359564 #### [facility] [address] [place] [address] 51984 Gauger Delivery: Robert Ybarra MD Type of Specimen RB Art Normal [facility] Comment on above: Result Comment: RR A RT = Right Artery RB ART = Right Brachial Artery LR ART = Left Radial Artery LB ART = Left Brachial Artery RF ART = Right Femoral Artery LF ART = Left Femoral Artery Performed By: #### C D:768713847, 7682497, 986959, 326501, 115236, 931788 #### [facility] [address] [place] [address] Gauger Delivery: Robert Ybarra MD Ventilation Nasalcan Normal [facility] Comment on above: Performed By: #### C D:880504528, 1578650, 084584, 636390, 373033, 619745 #### [facility] [address] [place] [address] 487[address] Gauger Delivery: Robert Ybarra MD VT 00 mL Normal [facility] Comment on above: Performed By: #### C D:560483836, 1381351, 846130, 363790, 229170, 256668 #### [facility] [address] [place] [address] Gauger Delivery: Robert Ybarra MD CBCNDon 12-04-2021 Erythrocyte distribution width (RBC) [Ratio] 14.2 % Normal 11.5-14.[address] [facility] Comment on above: Performed By: #### C D:439365224, 7153884, 740708, 525401, 938735, 720447 #### [facility] [address] [place] [address] Gauger Delivery: Robert Ybarra MD Hematocrit (Bld) [Volume fraction] 30.1 % Low 36.0-46.[address] [facility] Comment on above: Performed By: #### C D:675563288, 6552955, 368671, 705146, 951784, 991892 #### [facility] [address] [place] [address] Gauger Delivery: Robert Ybarra MD Hemoglobin (Bld) [Mass/Vol] 10.1 g/dL Low 12.0-16.[address] [facility] Comment on above: Performed By: #### C D:944403221, 3257855, 579546, 476830, 760298, 235769 #### [facility] [address] [place] [address] Gauger Delivery: Robert Ybarra MD Instr WBC ND 13.[address] [facility] Comment on above: Performed By: #### C D:856921326, 4362540, 856629, 105196, 501406, 581481 #### [facility] [address] [place] [address] 58275 Gauger Delivery: Robert Ybarra MD MCH (RBC) [Entitic mass] 29.8 pg Normal 27.0-34.[address] [facility] Comment on above: Performed By: #### C D:438736232, 5218527, 296979, 441183, 418217, 813263 #### [facility] [address] [place] [address] Gauger Delivery: Robert Ybarra MD MCHC (RBC) [Mass/Vol] 33.6 g/dL Normal 32.0-37.0 [facility] Comment on above: Performed By: #### C D:755043966, 1618589, 283093, 592097, 934897, 699979 #### [facility] [address] [place] [address] Gauger Delivery: Robert Ybarra MD MCV (RBC) [Entitic vol] 88.9 fL Normal 80.0-100.0 [facility] Comment on above: Performed By: #### C D:440184873, 5057110, 061752, 015909, 051404, 926009 #### [facility] [address] [place] [address] Gauger Delivery: Robert Ybarra MD Platelet 294 x1000 Normal 150-[address] [facility] Comment on above: Performed By: #### C D:309854876, 5765326, 260200, 586095, 821084, 641610 #### [facility] [address] [place] [address] Gauger Delivery: Robert Ybarra MD Platelet mean volume (Bld) [Entitic vol] 6.9 fL Low 7.4-10.[address] [facility] Comment on above: Performed By: #### C D:739670282, 9329464, 754865, 389092, 166076, 499969 #### [facility] [address] [place] [address] Gauger Delivery: Robert Ybarra MD RBC 3.38 x10 Low 4.20-5.[address] [facility] Comment on above: Result Comment: Note : RBC morphology is normal unless otherwise stated. Evaluation performed only if differential is requested. Performed By: #### C D:716315706, 8149920, 247279, 299522, 171161, 653179 #### [facility] [address] [place] [address] 12531 Gauger Delivery: Robert Ybarra MD WBC 13.8 x10 High 4.5-11.[address] [facility] Comment on above: Performed By: #### C D:640459555, 2353506, 607086, 090061, 678494, 256506 #### [facility] [address] [place] [address] 18450 Gauger Delivery: Robert Ybarra MD COMPMETAon 12-04-2021 Albumin [Mass/Vol] 2.9 g/dL Low 3.4-5.0 [facility] Comment on above: Performed By: #### C D:825109237, 3733431, 035377, 995389, 488571, 265240 #### [facility] [address] [place] [address] 24944 Gauger Delivery: Robert Ybarra MD Albumin/Globulin [Mass ratio] 1.2 {ratio} Normal [facility] Comment on above: Performed By: #### C D:692533746, 2461009, 167086, 719457, 526541, 977825 #### [facility] [address] [place] [address] Gauger Delivery: Robert Ybarra MD Alk Phos 58 unit/L Normal 45-[address] [facility] Comment on above: Performed By: #### C D:100243876, 4831517, 673594, 783562, 044657, 183106 #### [facility] [address] [place] [address] Gauger Delivery: Robert Ybarra MD Bilirubin [Mass/Vol] 0.25 mg/dL Normal 0.20-1.00 [facility] Comment on above: Result Comment: Use of this assay is not recommended for patients undergoing treatment with eltrombopag due to the potential for falsely elevated results. Performed By: #### C D:205623735, 2625676, 652690, 771928, 051744, 122762 #### [facility] [address] [place] [address] 74187 Gauger Delivery: Robert Ybarra MD Calcium [Mass/Vol] 8.5 mg/dL Normal 8.5-10.5 [facility] Comment on above: Performed By: #### C D:727860125, 5182501, 988355, 980348, 409978, 929227 #### [facility] [address] [place] [address]797 Gauger Delivery: Robert Ybarra MD Chloride [Moles/Vol] 106 mmol/L Normal 100-109 [facility] Comment on above: Performed By: #### C D:722559353, 5153403, 492869, 158662, 852328, 724116 #### [facility] [address] [place] [address] 19036 Gauger Delivery: Robert Ybarra MD CO2 [Moles/Vol] 22.7 mmol/L Normal 21.0-32.0 [facility] Comment on above: Performed By: #### C D:[id number], 7011669, 818036, 097990, 135586, 953278 #### [facility] [address] [place] [address] Gauger Delivery: Robert Ybarra MD Creatinine [Mass/Vol] 1.3 mg/dL High 0.6-1.0 [facility] Comment on above: Performed By: #### C D:031700725, 0645164, 639469, 667343, 467270, 208334 #### [facility] [address] [place] [address] 38764 Gauger Delivery: Robert Ybarra MD GFR AA 46 [facility] Comment on above: Result Comment: Afri can [place] GFR Calc Medical judgement is necessary to [...] for drug dosing. Performed By: #### C D:563831128, 4287277, 884067, 172165, 843485, 969136 #### [facility] [address] [place] [address] Gauger Delivery: Robert Ybarra MD Globulin (S) [Mass/Vol] 2.4 g/dL Normal [facility] Comment on above: Performed By: #### C D:337809734, 6842037, 170786, 009548, 811068, 369647 #### [facility] [address] [place] [address] Gauger Delivery: Robert Ybarra MD Glomerular Filtration Rate 38 mL/min/1.73m? [facility] Comment on above: Result Comment: Non [...] for drug dosing. Performed By: #### C D:887116515, 8190303, 643268, 314514, 300797, 078938 #### [facility] [address] [place] [address] Gauger Delivery: Robert Ybarra MD Glucose [Mass/Vol] 186 mg/dL High 72-100 [facility] Comment on above: Result Comment: Shireen puncture should occur prior to sulfasalazine administration due to the potential for falsely depressed results. Venipuncture should occur prior to sulfapyridine administration due to the potential falsely elevated results. Baseline assay values before administration of sulfasalazine and sulfapyridine therapy would not be affected. Performed By: #### C D:[id number], 5514142, 562252, 826644, 530988, 342355 #### [facility] [address] [place] [address] 79702 Gauger Delivery: Robert Ybarra MD GOT 123 unit/L High 15-[address] [facility] Comment on above: Result Comment: revi ewed Venipuncture should occur prior to sulfasalazine and/or sulfapyridine administration due to the potential for falsely depressed results. Baseline assay values before administration of sulfasalazine and sulfapyridine therapy would not be affected. Performed By: #### C D:[id number], [id number], 025243, 295157, 887448, 779850 #### [facility] [address] [place] [address] Gauger Delivery: Robert Ybarra MD GPT 92 unit/L High 13-[address] [facility] Comment on above: Result Comment: revi ewed Venipuncture should occur prior to sulfasalazine and/or sulfapyridine administration due to the potential for falsely depressed results. Baseline assay values before administration of sulfasalazine and sulfapyridine therapy would not be affected. Performed By: #### C D:[id number], 3056071, 638479, 066789, 903802, 543582 #### [facility] [address] [place] [address] 65579 Gauger Delivery: Robert Ybarra MD Osmolality [Osmolality] 289 mosm/kg Normal 275-[address] [facility] Comment on above: Performed By: #### C D:[id number], 8221226, 562526, 601986, 207396, 774067 #### [facility] [address] [place] [address] 45254 Gauger Delivery: Robert Ybarra MD Potassium [Moles/Vol] 4.3 mmol/L Normal 3.5-5.1 [facility] Comment on above: Performed By: #### C D:[id number], 8988232, 589077, 412730, 835493, 603357 #### [facility] [address] [place] [address] 14944 Gauger Delivery: Robert Ybarra MD Protein [Mass/Vol] 5.3 g/dL Low 6.0-8.5 [facility] Comment on above: Performed By: #### C D:[id number], 8701297, 466013, 555479, 509099, 726433 #### [facility] [address] [place] [address] 99655 Gauger Delivery: Robert Ybarra MD Sodium [Moles/Vol] 137 mmol/L Normal 135-145 [facility] Comment on above: Performed By: #### C D:[id number], 9670987, 305430, 905971, 820609, 436499 #### [facility] [address] [place] [address] 99956 Gauger Delivery: Robert Ybarra MD Urea nitrogen [Mass/Vol] 42 mg/dL High 10-[address] [facility] Comment on above: Performed By: #### C D:[id number], 7864390, 043749, 588648, 472899, 357159 #### [facility] [address] [place] [address] Gauger Delivery: Robert Ybarra MD Urea nitrogen/Creatinine [Mass ratio] 31.8 mg/mg Normal [facility] Comment on above: Performed By: #### C D:[id number], 2687485, 116436, 402272, 593307, 167000 #### [facility] [address] [place] [address] Gauger Delivery: Robert Ybarra MD CPKon 12-04-2021 CPK 3684 unit/L Critically abnormal [address] [place] [address] Comment on above: Result Comment: Crit ical Result(s) called at: 17:08:41 on 12/04/2021 by: Kp dennison, RBR to: TC Performed By: #### C D:[id number], 2277897, 134467, 543918, 750499, 068210 #### [facility] [address] [place] [address] Gauger Delivery: Robert Ybarra MD CPK 2217 unit/L Critically abnormal [address] [place] [address] Comment on above: Result Comment: Crit ical Result(s) called at: 04:10:50 on 12/04/2021 by: Byron dennison, RBR to: SF&XA&&XA&reviewed Performed By: #### C D:[id number], 6655463, 950101, 638182, 802647, 764053 #### [facility] [address] [place] [address] Gauger Delivery: Robert Ybarra MD CPK 926 unit/L High [address] [place] [address] Comment on above: Performed By: #### 1 71354 ####[facility] [address] [place] [address] Medical Director: Robert Ybarra MD Consult [...] MG TAB 650 mg 2 tabs, ORAL, [id number] ACETAMINOPHEN 325 MG TAB 650 mg 2 tabs, ORAL, M2IEHND DEXTROSE 50% 50ML SYRINGE/VIAL 12.5 g 25 mL, IV Push, PRN DEXTROSE 50% 50ML SYRINGE/VIAL 25 g 50 mL, IV Push, PRN GLUCAGON 1MG INJ 1 mg, IM, PRN GLUCOSE GEL 15GM/42ML 15 g 1 packets, ORAL, PRN GLUCOSE GEL 15GM/42ML 30 g 2 packets, ORAL, PRN ONDANSETRON=ZOFRAN INJ 4 mg 2 mL, IV Push, [id number] Allergies (1) Active Reaction No Known Allergies [...] available. BNP No qualifying data available. Normal [facility] Consult Report Patient: YUSUF MEDINA Age: 85 years Sex: Female : 1935 Associated Diagnoses: None Author: JEREMY DENTON MDSH History of Present Illness 85-year-old lady. Admitted 12/03/2021 Fell. Also confused. History was limited also because of language barrier. Apparently lives alone. Apparently had gone to the [employer] to clam [facility]er [facility]. She fell. Unknown why she [...] is able to speak little bit of Thai. Her son lives in the [facility]. She lives alone. 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 She spoke in broken Thai. Good eye contact. Followed commands. She knew [...] Glucose Random (more content not included)... Normal [facility] Consult Report Patient: YUSUF MEDINA Age: [...] Tylenol: 650 mg = 2 tabs, ORAL, [id number], PRN: Mild Pain Tylenol: 650 mg = 2 tabs, ORAL, J4FGJDS, PRN: Temperature Above 102 Zofran: 4 mg = 2 mL, IV Push, F1RFQMZ, PRN: Nausea/Vomiting glucagon: 1 mg, IM, PRN, [...] MG TAB 650 mg 2 tabs, ORAL, W3KKZHB ACETAMINOPHEN 325 MG TAB 650 mg 2 tabs, ORAL, L4JXPHJ DEXTROSE 50% 50ML SYRINGE/VIAL 12.5 g 25 mL, IV Push, PRN DEXTROSE 50% 50ML SYRINGE/VIAL 25 g 50 mL, IV Push, PRN GLUCAGON 1MG INJ 1 mg, IM, PRN GLUCOSE GEL 15GM/42ML 15 g 1 packets, ORAL, PRN GLUCOSE GEL 15GM/42ML 30 g 2 packets, ORAL, PRN ONDANSETRON=ZOFRAN INJ 4 mg 2 mL, IV Push, [id number] PERFLUTREN 2 ML INJ 2 ML, IV [...] No activ (more content not included)... Normal [facility] ED Discharge Educationon ED Discharge Education Normal So [facility] ED Patient Summaryon 022 ED Patient Summary [facility] Emergency Department Discharge Instructions [address] [place] [address] \\.br\\(Patient Copy)\\.br\\ \\.br\\Name: YUSUF MEDINA : 1935 \\.br\\Allergies: No Known Allergies\\.br\\Diagnosi s: Diagnoses This Visit\\.br\\ Abrasion of right elbow (S50.311A)\\.br\\ acute Hypothermia (T68.XXXA)\\.br\\ Contusion of right thigh (S70.11XA)\\.br\\ Fall ([id number])\\.br\\ Hypothermia due to exposure ([id number])\\.br\\\\ .br\\\\.br\\ \\.br\\ Visit Date: 12/03/2021 19:54:53 \\.br\\ Current Date Time: 12/04/2021 01:06:15 \\.br\\Address: [address] [place], [place] [id number] \\.br\\ \\.br\\ \\.br\\Primary Care Provider: \\.br\\Name: RADHA CRAMER\\.br\\ \\.br\\ \\.br\\Emergency Department Care Providers: \\.br\\ Primary Physician: IDA ALMODOVAR MD \\.br\\ \\.br\\ \\.br\\\\.br\\Thank you for choosing [facility] for your emergency care. You are very important to us. Our goal is to demonstrate our high quality medical care, and provide you with a very good patient experience.\\.br\\\\.br\\Y ou may receive a survey about our service. Please take the time to complete the survey and return it so we can continue to enhance our service.\\.br\\\\.br\\Than k you again for allowing the [facility] Department to care for your medical needs. If you have questions about your care or follow up information please contact us at [phone].\\.br\\\\.br \\ Follow-Up Instructions\\.br\\ \\.b r\\YUSUF MEDINA has been given these follow-up instructions:\\.br\\\\.br \\Patient Education Materials\\.br\\ \\.br\\YUSUF RUDD has been given the following patient education materials:\\.br\\\\.br\\ \\.br\\BEFORE YOU LEAVE\\.br\\\\.br\\Set up your [facility] account!\\.br\\ \\.br\\[employer] is a secure, online health management tool that connects you to portions of your hospital-based electronic medical record, allowing you to see test results, manage appointments, access discharge care instructions and much more.\\.br\\ \\.br\\You can access [employer] from a computer, tablet or smartphone. Enrollment/registratio n is required. If you do not have a [employer] account, please provide us with an email address before you leave so that we may set up an account for you.\\.br\\ \\.br\\New to [employer]!\\.br\\You may now securely connect some of the health management apps you use (e.g., fitness trackers, dietary trackers, etc.) to your health record in [facility] [employer]. This new feature provides expanded access to your health and wellness data, which will help you and your care team make informed decisions about your health care. \\.br\\If you are interested in using a health management gordo not currently connected to [employer], contact a Youth Support Worker at [phone] or [email or web address]. We will determine if the gordo meets the technical requirements to connect to [facility] [employer] and assure the security of your private [...] health or substance abuse issue, please call [facility] at [phone] or the National Suicide Prevention Lifeline at .\\.br\\ \\.br\\\\.br\\ \\.br\\ \\.br\\CAROL Almazan VIORICA, have received the follow-up provider(s) list, medication information and patient education materials/instructions and have verbalized understanding.\\.br\\ \\.br\\ \\.br\\Patient Signature \\.br\\Kalen e \\.br\\Leif e \\.br\\ \\.br\\ \\.br\\ Provider Signature \\.br\\Kalen e \\.br\\Leif e Normal [facility] ED Physician Reporton 2021 ED Physician Report Patient: YUSUF MEDINA Age: 85 years Sex: Female : 1935 Associated Diagnoses: acute Hypothermia; Contusion of right thigh; Abrasion of right elbow Author: SARBINA MOHAN MD Basic Information Time seen: Date [...] 20:47:00, rate 37, No ST-T changes, normal IN & QRS intervals, EP Interp, The Rhythm [...] \\.br\\ Lymph % 24.2 % NA \\.br\\ [place] % 3.7 % NA \\.br\\ Neutrophil % 70.8 % NA \\.br\\ Eosin % 0.9 % NA \\.br\\ Basos % 0.4 % NA \\.br\\ Lymph Count 5.46 x1000 HI \\.br\\ [place] Count 0.84 x1000 NORMAL \\.br\\ Neutrophil Count [...] mg/dL H (more content not included)... Normal [facility] ED Progress Noteon ED Progress Note 12/03/211954 PT TO ROOM 12 ARRIVED BY SQUAD TRAUMA CALLED FROM FIELD, SEE PAPER CHART FOR INFO. Normal [facility] HEMOon 12-04-2021 DIFF? No Normal [facility] Comment on above: Performed By: #### 1 65371, 459295, 884407, 2546257 ####[facility] [address] [place], [place] [address]) [phone] Director: Robert Ybarra MD Erythrocyte distribution width (RBC) [Ratio] 14.7 % High 11.5-14.[address] [facility] Comment on above: Performed By: #### 1 89287, 383221, 851038, 7393360 ####[facility] [address] [place] [address] Medical Director: Robert Ybarra MD Hematocrit (Bld) [Volume fraction] 30.7 % Low 36.0-46.[address] [facility] Comment on above: Performed By: #### 1 , 191541, 148299, 7895055 ####[facility] [address] [place], [place] [address]) [phone] Director: Robert Ybarra MD Hemoglobin (Bld) [Mass/Vol] 10.4 g/dL Low 12.0-16.[address] [facility] Comment on above: Performed By: #### 1 22631, 165050, 188798, 4798290 ####[facility] [address] [place] [address] Medical Director: Robert Ybarra MD Instr WBC 10.[address] [facility] Comment on above: Performed By: #### 1 94838, 084472, 053964, 4832850 ####[facility] [address] [place], [place] [address]) [phone] Director: Robert Ybarra MD MCH (RBC) [Entitic mass] 30.2 pg Normal 27.0-34.[address] [facility] Comment on above: Performed By: #### 1 47777, 741643, 082344, 4198733 ####[facility] [address] [place], [place] [address]) [phone] Director: Robert Ybarra MD MCHC (RBC) [Mass/Vol] 33.9 g/dL Normal 32.0-37.0 [facility] Comment on above: Performed By: #### 1 16225, 404059, 699486, 0992008 ####[facility] [address] [place] [address] Medical Director: Robert Ybarra MD MCV (RBC) [Entitic vol] 89.3 fL Normal 80.0-100.0 [facility] Comment on above: Performed By: #### 1 73451, 893771, 357217, 9663998 ####[facility] [address] [place] [address] Medical Director: Robert Ybarra MD Nucleated RBC 0 /100WBC Normal [facility] Comment on above: Performed By: #### 1 84104, 809887, 263728, 6476226 ####[facility] [address] [place] [address] Medical Director: Robert Ybarra MD Platelet 310 x1000 Normal 150-[address] [facility] Comment on above: Performed By: #### 1 56751, 982954, 496064, 5129573 ####[facility] [address] [place] [address] Medical Director: Robert Ybarra MD Platelet mean volume (Bld) [Entitic vol] 7.2 fL Low 7.4-10.[address] [facility] Comment on above: Performed By: #### 1 33240, 347732, 157895, 8152656 ####[facility] [address] [place] [address] Medical Director: Robert Ybarra MD RBC 3.44 x10 Low 4.20-5.[address] [facility] Comment on above: Result Comment: Note : RBC morphology is normal unless otherwise stated. Evaluation performed only if differential is requested. Performed By: #### 1 89494, 685452, 322498, 4472213 ####[facility] [address] [place] [address] Medical Director: Robert Ybarra MD WBC 10.1 x10 Normal 4.5-11.[address] [facility] Comment on above: Performed By: #### 1 40923, 653611, 298786, 8755775 ####[facility] [address] [place] [address] Medical Director: Robert Ybarra MD HGB A1Con 12-04-2021 HbA1c (Bld) [Mass fraction] 6.7 % Normal [facility] Comment on above: Result Comment: Refe rence Range: Diabetic Greater than or equal to 6.5 % Prediabetic 5.7?6.4 % Normal Less than 5.7 % Performed By: #### 1 77347 ####[facility] [address] [place] [address] Medical Director: Robert Ybarra MD IRON GROUPon 12-04-2021 Iron [Mass/Vol] 36 ug/dL Low 40-[address] [facility] Comment on above: Result Comment: Resu lts may be inaccurate if performed within 14 days of IV iron dextran administration. Performed By: #### 1 41049, 983280, 707441, 2571316 ####[facility] [address] [place] [address] Medical Director: Robert Ybarra MD Saturation 9.8 % Low 20.0-50.[address] [facility] Comment on above: Performed By: #### 1 04217, 887255, 951934, 8423587 ####[facility] [address] [place] [address] Medical Director: Robert Ybarra MD TIBC 367 ug/dl Normal 250-[address] [facility] Comment on above: Result Comment: Resu lts may be inaccurate if performed within 14 days of IV iron dextran administration. Performed By: #### 1 34593, 598260, 029064, 6739753 ####[facility] [address] [place] [address] Medical Director: Robert Ybarra MD MG LEVELon 12-04-2021 Magnesium [Mass/Vol] 1.6 mg/dL Normal 1.6-2.6 [facility] Comment on above: Performed By: #### C D:[id number], 2928859, 034212, 418180, 122714, 615981 #### [facility] [address] [place] [address] Gauger Delivery: Robert Ybarra MD Nursing Clinical Noteon 11-15 [...] at all times. Hourly rounding completed. Normal [facility] Nursing Clinical Note got report from [...] 37.5, bear hugger is still on. Normal [facility] POC Glucoseon 12-04-2021 Glucose [Mass/Vol] 152 mg/dL High 72-100 [facility] Comment on above: Performed By: #### C D:[id number], 7050271, 024213, 055747, 294063, 124136 #### [facility] [address] [place] [address] Gauger Delivery: Robert Ybarra MD Glucose [Mass/Vol] 177 mg/dL High 72-100 [facility] Comment on above: Performed By: #### C D:[id number], 8188161, 001830, 700559, 435409, 975292 #### [facility] [address] [place] [address] Gauger Delivery: Robert Ybarra MD Progress Note-Physicianon Progress Note-Physician [...] BMP in 24 hrs. Gertrudis Beckford DO Forest Pathologist Normal [facility] Progress Note-Physician Patient: YUSUF MEDINA Age: [...] home. She does not consent to short-term shelter facility placement. The family will be available to stay with her until she completely recovered with son arriving from [place] this afternoon. Objective Vital Signs (last 24 [...] Plan Diagnosis Abrasion of right elbow - QJK37-TV S50.311A, Emergency medicine, Medical. Acute Hypothermia - XUE75-WY T68.XXXA, Emergency medicine, Medical. Contusion of right thigh - RWH96-MK S70.11XA, Emergency medicine, Medical. Fall - PNED [id number], Medical. Hypothermia due to exposure - PNED [id number], Medical. She has recovered from hypothermic episode and is now at normal baseline mental status and does not consent to shelter facility placement. She will be discharged to home with home health care and family will monitor condition and safety.. Diagnosis Chronic kidney disease (CKD), stage III (moderate) - YKX99-ZJ N18.30, Medical. The patient's creatinine level is at their normal baseline. There is no significant changes in the patient's GFR. The patient's present medications will be continued. The patient's renal function will be monitored.. Diagnosis Diabetes mellitus type II, controlled - BOC37-ZV E11.9, Medical. The patient's blood sugars are adequately controlled. The present medications will be continued, with glucometer checks before meals and at bedtime and sliding scale coverage.. Education and Follow-up: Discharge Planning: Plan to discharge ( To home, Total time that I spent on this patient's discharge is greater than 30 minutes; 32minutes total. ). Normal [facility] T4on 12-04-2021 T4 [Mass/Vol] 9.9 ug/dL Normal 4.5-10.[address] [facility] Comment on above: Result Comment: Shireen puncture should occur prior to sulfasalazine administration due to the potential for falsely elevated results. Baseline assay values before administration of sulfasalazine and sulfapyridine therapy would not be affected. Performed By: #### C D:[id number], 8496446, 201229, 137576, 542227, 290396 #### [facility] [address] [place], [place] [address] Gauger Delivery: Robert Ybarra MD TROPONIN HS 2HRon 12-04-2021 Delta Troponin 2 Hr 39 pg/mL High 0-14 [facility] Comment on above: Result Comment: The term acute myocardial infarction should be used when there is acute myocardial injury with clinical evidence of acute myocardial ischemia and the rise or fall of serial Troponin HS values (delta troponin) greater than or equal to 15 pg/mL with at least one Troponin HS value above the 99th percentile reference range Performed By: #### C D:[id number] #### [facility] [address] [place], [place] [address] Gauger Delivery: Robert Ybarra MD Troponin HS 2 Hr 105 pg/mL High 3-54 [facility] Comment on above: Performed By: #### C D:[id number] #### [facility] [address] [place], [place] [address] Gauger Delivery: Robert Ybarra MD TROPONIN HS 6HRon 12-04-2021 Delta Troponin 6 Hr 232 pg/mL High 0-14 [facility] Comment on above: Result Comment: The term acute myocardial infarction should be used when there is acute myocardial injury with clinical evidence of acute myocardial ischemia and the rise or fall of serial Troponin HS values (delta troponin) greater than or equal to 15 pg/mL with at least one Troponin HS value above the 99th percentile reference range Performed By: #### C D:[id number], 0121224, 882387, 719209, 917013, 685372 #### [facility] [address] [place] [address] Gauger Delivery: Robert Ybarra MD Troponin HS 6 Hr 337 pg/mL Critically abnormal 3-[address] [facility] Comment on above: Result Comment: Crit ical Result(s) called at: 04:06:04 on 12/04/2021 by: Byron downsed, RBR to: SF Performed By: #### C D:[id number], 8222056, 737294, 203991, 561510, 329053 #### [facility] [address] [place] [address] Gauger Delivery: Robert Ybarra MD TSHon 12-04-2021 TSH Qn 0.53 m[IU]/L Normal 0.36-3.[address] [facility] Comment on above: Result Comment: High levels of serum biotin may interfere with this test. Performed By: #### C D:[id number], 4348696, 508966, 570340, 585645, 315356 #### [facility] [address] [place] [address] Gauger Delivery: Robert Ybarra MD U DOA WITH FENTANYLon 2021 Amphetamines, U Negative Normal [facility] Comment on above: Result Comment: Urin [...] non-medical purposes. Urine for Drugs of Abuse [place] Levels: Barbiturate 200 ng/ml PCP 25 ng/ml Cocaine 300 ng/ml Opiates 2000 ng/ml Amphetamines 1000 ng/ml Benzodiazepines 200 ng/ml THC 50 ng/ml EXTC 500 ng/ml Performed By: #### C D:[id number] ####[facility] [address] [place] [address] Medical Director: Robert Ybarra MD Barbituates, Negative [facility] Comment on above: Performed By: #### C D:[id number] ####[facility] [address] [place] [address] Medical Director: Robert Ybarra MD Benzodiazepines, U Negative [facility] Comment on above: Performed By: #### C D:[id number] ####[facility] [address] [place] [address] [facility] Director: Robert Ybarra MD Cocaine, [facility] Comment on above: Performed By: #### C D:[id number] ####[facility] [address] [place], [place] [address] [facility] Director: Robert Ybarra MD Ecstasy, [facility] Comment on above: Performed By: #### C D:[id number] ####[address] [address] [facility] Director: Robert Ybarra MD Fentanyl, [facility] Comment on above: Result Comment: Brandonin rosanna [...] be used for non-medical purposes. Urine Fentanyl [place] Level: 1 ng/ml Performed By: #### C D:[id number] ####[facility] [address] [place] [address] Medical Director: Robert Ybarra MD Opiates, [facility] Comment on above: Performed By: #### C D:[id number] ####[facility] [address] [place] [address] Medical Director: Robert Ybarra MD PCP, U Negative Normal [facility] Comment on above: Performed By: #### C D:[id number] ####[facility] [address] [place] [address] Medical Director: Robert Ybarra MD THC, U Negative Normal [facility] Comment on above: Performed By: #### C D:[id number] ####[facility] [address] [place], [place] [address]) [phone] Director: Robert Ybarra MD UAon 12-04-2021 Appearance, U Hazy Normal [facility] Comment on above: Performed By: #### C D:[id number], 1549295, 794128, 330096, 449478, 923498 #### [facility] [address] [place] [address] Gauger Delivery: Robert Ybarra MD Bacteria, U Occasional Normal [facility] Comment on above: Performed By: #### C D:[id number], 2423670, 925794, 219512, 387882, 919293 #### [facility] [address] [place] [address] Gauger Delivery: oRbert Ybarra MD Bilirubin, U Negative Normal Negative [facility] Comment on above: Performed By: #### C D:[id number], 4641932, 854562, 000590, 941536, 736589 #### [facility] [address] [place] [address] Gauger Delivery: Robert Ybarra MD Blood, U Large Abnormal Negative [facility] Comment on above: Performed By: #### C D:[id number], 8812968, 146759, 752951, 776236, 341295 #### [facility] [address] [place] [address] 23406 Gauger Delivery: Robert Ybarra MD Color, U Yellow Normal [facility] Comment on above: Performed By: #### C D:[id number], 1265225, 122253, 952380, 023310, 192817 #### [facility] [address] [place] [address] 18476 Gauger Delivery: Robert Ybarra MD Glucose Qual, U 150 mg/dl Abnormal Negative [facility] Comment on above: Performed By: #### C D:[id number], 0062476, 550149, 654321, 519990, 966674 #### [facility] [address] [place] [address] 39406 Gauger Delivery: Robert Ybarra MD Ketones, U Trace Abnormal Negative [facility] Comment on above: Performed By: #### C D:[id number], 1335200, 448001, 035571, 667208, 165605 #### [facility] [address] [place] [address] 78272 Gauger Delivery: Robert Ybarra MD Leukocyte Esterase, U Negative Normal Negative [facility] Comment on above: Performed By: #### C D:[id number], 8350283, 483382, 156281, 639873, 261145 #### [facility] [address] [place] [address] 31907 Gauger Delivery: Robert Ybarra MD Mucous, U Occasional Normal [facility] Comment on above: Performed By: #### C D:[id number], 9120412, 054139, 064666, 929218, 731177 #### [facility] [address] [place] [address] 10418 Gauger Delivery: Robert Ybarra MD Nitrite, U Negative Normal Negative [facility] Comment on above: Performed By: #### C D:[id number], 8298127, 527715, 075308, 627798, 875214 #### [facility] [address] [place] [address] 43549 Gauger Delivery: Robert Ybarra MD pH, U 5.0 Normal 4.5-8.[address] [facility] Comment on above: Performed By: #### C D:[id number], 9879719, 070557, 644923, 655162, 192081 #### [facility] [address] [place] [address] 59236 Gauger Delivery: Robert Ybarra MD Protein, U Negative Normal Negative [facility] Comment on above: Performed By: #### C D:[id number], 2689020, 321838, 768886, 391311, 974011 #### [facility] [address] [place] [address] 42960 Gauger Delivery: Robert Ybarra MD RBC/HPF, U 2 #/HPF Normal 0-[address] [facility] Comment on above: Performed By: #### C D:[id number], 6727037, 509807, 114820, 053109, 513363 #### [facility] [address] [place] [address] 21319 Gauger Delivery: Robert Ybarra MD Specific [place], U 1.009 Normal 1.001-1.035 [facility] Comment on above: Performed By: #### C D:[id number], 8378530, 767703, 605084, 403009, 685794 #### [facility] [address] [place] [address] 01111 Gauger Delivery: Robert Ybarra MD Squamous Epithelial Cells, U 1 #/HPF Normal [facility] Comment on above: Performed By: #### C D:[id number], 0622294, 663148, 417262, 325510, 049733 #### [facility] [address] [place] [address] 68025 Gauger Delivery: Robert Ybarra MD U MICRO Indicated Normal [facility] Comment on above: Performed By: #### C D:[id number], 2949294, 765884, 190446, 294301, 251568 #### [facility] [address] [place] [address] [id number] Gauger Delivery: Robert Ybarra MD Urobilinogen Qual, U <2.0 mg/dl Normal <2.0 mg/dl [facility] Comment on above: Result Comment: EU/d l and mg/dl are equivalent units. Performed By: #### C D:[id number], 6805576, 880374, 200247, 112708, 236003 #### [facility] [address] [place], [place] [address] Gauger Delivery: Robert Ybarra MD WBC/HPF, U 2 #/HPF Normal 0-[address] [facility] Comment on above: Performed By: #### C D:[id number], 7201530, 057617, 823959, 113556, 452374 #### [facility] [address] [place], [place] [address] Gauger Delivery: Robert Ybarra MD VIT D 25 LEVELon 12-04-2021 Vit D 25 16 ng/mL Normal [facility] Comment on above: Result Comment: Less than 20 ng/ml Deficient 20-30 ng/ml Insufficient 30-100 ng/ml Sufficient Greater than 100 ng/ml Potential toxicity Patients who have recently undergone fluorescein dye angiography in the past 48 to 72 hours (or longer if renal insufficient) may have falsely elevated results. Performed By: #### 9 [id number] ####[facility] [address] [place], [place] [id number] Medical Director: Robert Ybarra MD XR ELBOW [...] by: Silvia Hill DO 12/03/2021 10:59 PM FINANCIAL OFFICER Technologist: JUAN PABLO PHILIPPE Dictated By: SILVIA HILL DO Signed By: SILVIA HILL DO Signed Out: 12/03/21 23:59:[address] [facility] ALCOHOL SERUMon 12-03-2021 Alcohol, Serum <[address] [facility] Comment on above: Result Comment: Note : Alcohol values performed at [facility] are performed on Serum and reported in mg/dl, which is different then the state reporting units of g/dl which is performed on whole blood. Result reporting units are based on test methodology and are not interchangable. Performed By: #### C D:[id number], 3866007, 142627, 810598, 752886, 000399 #### [facility] [address] [place] [address] Gauger Delivery: Robert Ybarra MD APTTon 12-03-2021 aPTT Coag (Bld) [Time] 30.4 s Normal 26.0-39.0 So [facility] Comment on above: Performed By: #### C D:[id number], 5654820, 403304, 138169, 398484, 475238 #### [facility] [address] [place], [place] [address] Gauger Delivery: Robert Ybarra MD AUTO DIFFon 12-03-2021 Baso Count 0.09 x1000 Normal 0.00-0.[address] [facility] Comment on above: Performed By: #### C D:[id number], 0198052, 993712, 173103, 437858, 108919 #### [facility] [address] [place], [place] [address] Gauger Delivery: Robert Ybarra MD Basos % 0.4 % Normal [facility] Comment on above: Performed By: #### C D:[id number], 3133826, 539619, 680503, 288755, 782183 #### [facility] [address] [place] [address] 58944 Gauger Delivery: Robert Ybarra MD Eos Count 0.21 x1000 Normal 0.00-0.[address] [facility] Comment on above: Performed By: #### C D:536139695, 5406997, 795920, 234029, 944320, 647719 #### [facility] [address] [place] [address] 98105 Gauger Delivery: Robert Ybarra MD Eosinophils/100 WBC (Bld) 0.9 % Normal [facility] Comment on above: Performed By: #### C D:[id number], 6330406, 077238, 643588, 251111, 486740 #### [facility] [address] [place] [address] 88601 Gauger Delivery: Robert Ybarra MD Lymph Count 5.46 x1000 High 1.20-4.[address] [facility] Comment on above: Performed By: #### C D:768692109, 7995442, 150678, 145621, 583001, 358002 #### [facility] [address] [place] [address] 01094 Gauger Delivery: Robert Ybarra MD Lymphocytes/100 WBC (Bld) 24.2 % Normal [facility] Comment on above: Performed By: #### C D:297461512, 4934690, 774965, 553506, 036325, 495281 #### [facility] [address] [place] [address] 53039 Gauger Delivery: Robert Ybarra MD [place] Count 0.84 x1000 Normal 0.10-1.[address] [facility] Comment on above: Performed By: #### C D:[id number], 5649700, 065268, 627386, 433690, 475741 #### [facility] [address] [place] [address] Gauger Delivery: Robert Ybarra MD Monocytes/100 WBC (Bld) 3.7 % Normal [facility] Comment on above: Performed By: #### C D:[id number], 2355100, 089563, 250301, 083334, 952091 #### [facility] [address] [place] [address] 81395 Gauger Delivery: Robert Ybarra MD Neutrophil Count (ANC) 15.99 x1000 High 1.40-8.80 [facility] Comment on above: Performed By: #### C D:561096923, 2313641, 063264, 958659, 265934, 982059 #### [facility] [address] [place] [address] 03026 Gauger Delivery: Robert Ybarra MD Neutrophils/100 WBC (Bld) 70.8 % Normal [facility] Comment on above: Performed By: #### C D:[id number], 9695010, 694697, 450892, 649270, 894893 #### [facility] [address] [place] [address] 95850 Gauger Delivery: Robert Ybarra MD Scan Differential Diff Scd Normal [facility] Comment on above: Result Comment: Slid e reviewed by technologist. Performed By: #### C D:[id number], 1045154, 555939, 070466, 482218, 503362 #### [facility] [address] [place] [address] 73977 Gauger Delivery: Robert Ybarra MD BLD GASon 12-03-2021 MAGGIE TEST Normal [facility] Comment on above: Performed By: #### C D:[id number], 6047515, 337638, 483821, 709724, 187683 #### [facility] [address] [place] [address] 22307 Gauger Delivery: Robert Ybarra MD Base Excess -11.8 mmol/L [facility] Comment on above: Performed By: #### C D:[id number], 2350227, 912936, 690673, 145557, 489306 #### [facility] [address] [place] [address] 60405 Gauger Delivery: Robert Ybarra MD ePAP 0 cmH20 [facility] Comment on above: Performed By: #### C D:[id number], 9667411, 291466, 426800, 877542, 598102 #### [facility] [address] [place], [place] [address] Gauger Delivery: Robert Ybarra MD FIO2 100 % [facility] Comment on above: Performed By: #### C D:[id number], 0346045, 516424, 840333, 224771, 947834 #### [facility] [address] [place], [place] [address] Gauger Delivery: Robert Ybarra MD HCO3 (Bld) [Moles/Vol] 15.5 mmol/L Low 22.0-26.0 [facility] Comment on above: Performed By: #### C D:[id number], 0581914, 528106, 966994, 803588, 858695 #### [facility] [address] [place], [place] [address] Gauger Delivery: Robert Ybarra MD iPAP 0 cmH20 [facility] Comment on above: Performed By: #### C D:141372671, 9814811, 012851, 100263, 492640, 926168 #### [facility] [address] [place] [address] 43054 Gauger Delivery: Robert Ybarra MD O2 L/M 15.0 [facility] Comment on above: Performed By: #### C D:[id number], 3963152, 892698, 674968, 492422, 901877 #### [facility] [address] [place] [address] 43365 Gauger Delivery: Robert Ybarra MD Oxygen (Bld) [Partial pressure] 64.6 mm[Hg] Low 80.0-100.[address] [facility] Comment on above: Performed By: #### C D:[id number], 3119691, 444921, 850835, 338936, 124708 #### [facility] [address] [place] [address] 35265 Gauger Delivery: Robert Ybarra MD Oxygen saturation in Blood 86.6 % Normal [facility] Comment on above: Performed By: #### C D:637349582, 9481107, 208598, 564832, 171209, 552117 #### [facility] [address] [place] [address] 93642 Gauger Delivery: Robert Ybarra MD PCO2 41.0 mmHg Normal 35.0-45.[address] [facility] Comment on above: Performed By: #### C D:[id number], 6980350, 074912, 395227, 106986, 516357 #### [facility] [address] [place] [address] 52181 Gauger Delivery: Robert Ybarra MD PEEP 0.0 cmH20 Normal [facility] Comment on above: Performed By: #### C D:[id number], 9095330, 624571, 099581, 966146, 078109 #### [facility] [address] [place] [address] 41488 Gauger Delivery: Robert Ybarra MD pH (Bld) 7.196 [pH] Critically abnormal 7.350-7.[address] [facility] Comment on above: Result Comment: RESU LTS CALLED WITH READBACK TO DR. SABRINA MOHAN 12/03/2021 21:02:41 EST. Performed By: #### C D:[id number], 0860959, 483216, 835233, 133051, 206616 #### [facility] [address] [place] [address] Gauger Delivery: Robert Ybarra MD PO2/FiO2 Ratio 65 Low 300-[address] [facility] Comment on above: Performed By: #### C D:116571769, 1055968, 338549, 751431, 825297, 420431 #### [facility] [address] [place] [address] Gauger Delivery: Robert Ybarra MD Pressure Support. 0 cmH20 Normal [facility] Comment on above: Performed By: #### C D:[id number], 5290658, 555248, 108572, 825694, 033087 #### [facility] [address] [place] [address] 74840 Gauger Delivery: Robert Ybarra MD RATE 0 bpm Normal [facility] Comment on above: Performed By: #### C D:[id number], 0400128, 364240, 151370, 591978, 894096 #### [facility] [address] [place] [address] 19407 Gauger Delivery: Robert Ybarra MD TEMP 37.0 degC Normal <=37.[address] [facility] Comment on above: Performed By: #### C D:[id number], 2555553, 815679, 716614, 096154, 788700 #### [facility] [address] [place] [address] 90424 Gauger Delivery: Robert Ybarra MD Type of Specimen Venous Normal [facility] Comment on above: Result Comment: RR A RT = Right Artery RB ART = Right Brachial Artery LR ART = Left Radial Artery LB ART = Left Brachial Artery RF ART = Right Femoral Artery LF ART = Left Femoral Artery Performed By: #### C D:[id number], 7550656, 024526, 734340, 992065, 132376 #### [facility] [address] [place] [address] 18122 Gauger Delivery: Robert Ybarra MD Ventilation Mask [facility] Comment on above: Performed By: #### C D:708372360, 2392243, 668762, 289196, 988945, 466533 #### [facility] [address] [place] [address] Gauger Delivery: Robert Ybarra MD VT 00 mL [facility] Comment on above: Performed By: #### C D:[id number], 0852710, 387918, 418523, 143035, 004096 #### [facility] [address] [place] [address] Gauger Delivery: Robert Ybarra MD COMPMETAon 12-03-2021 Albumin/Globulin [Mass ratio] 1.3 {ratio} [facility] Comment on above: Performed By: #### C D:[id number], 5638569, 537008, 939213, 150851, 418339 #### [facility] [address] [place] [address] Gauger Delivery: Robert Ybarra MD GFR AA 36 [facility] Comment on above: Result Comment: Afri can Citizen [place] GFR Calc Medical judgement is necessary to [...] for drug dosing. Performed By: #### C D:[id number], 6278422, 753253, 294223, 582902, 445959 #### [facility] [address] [place] [address] Gauger Delivery: Robert Ybarra MD Glomerular Filtration Rate 30 mL/min/1.73m? [facility] Comment on above: Result Comment: Non [...] for drug dosing. Performed By: #### C D:815520583, 5587271, 512003, 468300, 129325, 080004 #### [facility] [address] [place] [address] 46341 Gauger Delivery: Robert Ybarra MD Osmolality [Osmolality] 297 mosm/kg High 275-[address] [facility] Comment on above: Performed By: #### C D:748145614, 6696342, 490636, 705435, 913231, 705518 #### [facility] [address] [place] [address] 98003 Gauger Delivery: Robert Ybarra MD Urea nitrogen/Creatinine [Mass ratio] 27.3 mg/mg Normal [facility] Comment on above: Performed By: #### C D:978473961, 2074238, 562724, 677535, 446757, 202721 #### [facility] [address] [place] [address] 22281 Gauger Delivery: Robert Ybarra MD Albumin [Mass/Vol] 3.2 g/dL Low 3.4-5.0 [facility] Comment on above: Performed By: #### C D:[id number], 8993537, 693822, 213552, 160864, 145375 #### [facility] [address] [place] [address] 56252 Gauger Delivery: Robert Ybarra MD Alk Phos 60 unit/L Normal 45-[address] [facility] Comment on above: Performed By: #### C D:[id number], 4420925, 510654, 846181, 585485, 674182 #### [facility] [address] [place] [address] 28443 Gauger Delivery: Robert Ybarra MD Bilirubin [Mass/Vol] 0.26 mg/dL Normal 0.20-1.00 [facility] Comment on above: Result Comment: Use of this assay is not recommended for patients undergoing treatment with eltrombopag due to the potential for falsely elevated results. Performed By: #### C D:[id number], 7537603, 330944, 570728, 759282, 967222 #### [facility] [address] [place] [address] 43095 Gauger Delivery: Robert Ybarra MD Calcium [Mass/Vol] 8.9 mg/dL Normal 8.5-10.5 [facility] Comment on above: Performed By: #### C D:908072457, 4686057, 090123, 355494, 168428, 085086 #### [facility] [address] [place], [place] [address] Gauger Delivery: Robert Ybarra MD Chloride [Moles/Vol] 105 mmol/L Normal 100-109 [facility] Comment on above: Performed By: #### C D:[id number], 7930299, 640474, 632130, 265782, 806795 #### [facility] [address] [place], [place] [address] Gauger Delivery: Robert Ybarra MD CO2 [Moles/Vol] 18.9 mmol/L Low 21.0-32.0 [facility] Comment on above: Performed By: #### C D:[id number], 7893044, 129313, 458497, 444985, 617874 #### [facility] [address] [place], [place] [address] Gauger Delivery: Robert Ybarra MD Creatinine [Mass/Vol] 1.6 mg/dL High 0.6-1.0 [facility] Comment on above: Performed By: #### C D:[id number], 0274917, 977981, 380941, 394466, 877919 #### [facility] [address] [place] [address] Gauger Delivery: Robert Ybarra MD Globulin (S) [Mass/Vol] 2.4 g/dL Normal [facility] Comment on above: Performed By: #### C D:[id number], 5887792, 094698, 775388, 991365, 565279 #### [facility] [address] [place] [address] Gauger Delivery: Robert Ybarra MD Glucose [Mass/Vol] 270 mg/dL High 72-100 [facility] Comment on above: Result Comment: Shireen puncture should occur prior to sulfasalazine administration due to the potential for falsely depressed results. Venipuncture should occur prior to sulfapyridine administration due to the potential falsely elevated results. Baseline assay values before administration of sulfasalazine and sulfapyridine therapy would not be affected. Performed By: #### C D:[id number], 7841936, 296016, 883149, 767666, 636999 #### [facility] [address] [place] [address] 16235 Gauger Delivery: Robert Ybarra MD GOT 61 unit/L High 15-[address] [facility] Comment on above: Result Comment: Resu lts may be increased due to hemolysis. Venipuncture should occur prior to sulfasalazine and/or sulfapyridine administration due to the potential for falsely depressed results. Baseline assay values before administration of sulfasalazine and sulfapyridine therapy would not be affected. Performed By: #### C D:305012467, 4360091, 529297, 337165, 636551, 668369 #### [facility] [address] [place] [address] Gauger Delivery: Robert Ybarra MD GPT 49 unit/L Normal 13-[address] [facility] Comment on above: Result Comment: Shireen puncture should occur prior to sulfasalazine and/or sulfapyridine administration due to the potential for falsely depressed results. Baseline assay values before administration of sulfasalazine and sulfapyridine therapy would not be affected. Performed By: #### C D:125891193, 2688557, 384654, 270743, 545615, 202401 #### [facility] [address] [place] [address] 72573 Gauger Delivery: Robert Ybarra MD Potassium [Moles/Vol] 5.5 mmol/L High 3.5-5.1 [facility] Comment on above: Result Comment: Resu lts may be increased due to hemolysis. Performed By: #### C D:[id number], 5233108, 056238, 198346, 396289, 024014 #### [facility] [address] [place] [address] 21529 Gauger Delivery: Robert Ybarra MD Protein [Mass/Vol] 5.6 g/dL Low 6.0-8.5 [facility] Comment on above: Performed By: #### C D:[id number], 5469763, 494980, 926553, 733992, 788667 #### [facility] [address] [place] [address] 65774 Gauger Delivery: Robert Ybarra MD Sodium [Moles/Vol] 138 mmol/L Normal 135-145 [facility] Comment on above: Performed By: #### C D:[id number], 6414862, 958974, 044613, 942025, 422756 #### [facility] [address] [place] [address] 76620 Gauger Delivery: Robert Ybarra MD Urea nitrogen [Mass/Vol] 45 mg/dL High 10-[address] [facility] Comment on above: Performed By: #### C D:[id number], 6469233, 248727, 198056, 909207, 207890 #### [facility] [address] [place] [address] 48000 Gauger Delivery: Robert Ybarra MD CT ABD PELVIS WO [...] by: David Barraza MD 12/03/2021 7:49 PM FINANCIAL OFFICER Normal [facility] Comment on above: Order Comment: NO [...] by: David Barraza MD 12/03/2021 7:37 PM FINANCIAL OFFICER Workstation: [employer] Technologist: KATJA GARVIN ND Dictated By: DAVID BARRAZA MD Signed By: DAVID BARRAZA MD Signed Out: 12/03/21 20:37:[address] [facility] CT CERVICAL SPINE WO CONTRAS Ton [...] by: David Barraza MD 12/03/2021 7:40 PM FINANCIAL OFFICER Workstation: [id number] Technologist: KATJA GARVIN ND Dictated By: DAVID BARRAZA MD Signed By: DAVID BARRAZA MD Signed Out: 12/03/21 20:40:[address] [facility] CT CHEST WO CONTRSTon 2021 CT [...] by: David Barraza MD 12/03/2021 7:46 PM FINANCIAL OFFICER Technologist: KATJA GARVIN ND Dictated By: DAVID BARRAZA MD Signed By: DAVID BARRAZA MD Signed Out: 12/03/21 20:46:[address] [facility] ED Pre-Arrival Formon 2021 ED Pre-Arrival Form Pre-Arrival Summary Name: ADRYAN-KENDRICK, Current Date: 12/03/2021 19:55:10 EST Gender: Date of : Age: Pre-Arrival Type: EMS ETA: 12/03/2021 20:08:00 EST Primary Care Physician: Presenting Problem: Pre-Arrival User: Laura Smith RN Referring Source: Location: [address] [facility] Emergency Department [address] [place] [address] Notes: Vital Signs: Doctor Call Back: DNR Status: Miscellaneous Issues: Normal [facility] HEMOon 12-03-2021 DIFF? No Normal [facility] Comment on above: Performed By: #### C D:[id number], 2869379, 935006, 554813, 756269, 320887 #### [facility] [address] [place] [address] 90352 Gauger Delivery: Robert Ybarra MD Nucleated RBC 0 /100WBC Normal [facility] Comment on above: Performed By: #### C D:[id number], 2528272, 293727, 019248, 785573, 095894 #### [facility] Services [address] [place] [address] [id number] Gauger Delivery: Robert Ybarra MD [facility] Actions See Notes Abnormal [facility] Comment on above: Result Comment: Scan Slide. Perform manual diff if needed. Scan Slide. Path Review if Required. SNV Performed By: #### C D:[id number], [id number], 749120, 284369, 629357, 390528 #### [facility] Services [address] [place] [address] 02944 Gauger Delivery: Robert Ybarra MD Erythrocyte distribution width (RBC) [Ratio] 14.6 % High 11.5-14.[address] [facility] Comment on above: Performed By: #### C D:[id number], [id number], 744876, 888572, 789200, 267272 #### [facility] Services [address] [place] [address] 33565 Gauger Delivery: Robert Ybarra MD Hematocrit (Bld) [Volume fraction] 31.2 % Low 36.0-46.[address] [facility] Comment on above: Performed By: #### C D:[id number], [id number], 159009, 980249, 260495, 937027 #### [facility] Services [address] [place] [address] 10787 Gauger Delivery: Robert Ybarra MD Hemoglobin (Bld) [Mass/Vol] 10.1 g/dL Low 12.0-16.[address] [facility] Comment on above: Performed By: #### C D:[id number], [id number], 530961, 938482, 264868, 610898 #### [facility] Services [address] [place] [address] 08124 Gauger Delivery: Robert Ybarra MD Instr WBC 22.[address] [facility] Comment on above: Performed By: #### C D:[id number], [id number], 612195, 284289, 243176, 388498 #### [facility] [address] [place] [address] 40007 Gauger Delivery: Robert Ybarra MD MCH (RBC) [Entitic mass] 29.6 pg Normal 27.0-34.[address] [facility] Comment on above: Performed By: #### C D:[id number], [id number], 587167, 080082, 705387, 769791 #### [facility] [address] [place] [address] 22571 Gauger Delivery: Robert Ybarra MD MCHC (RBC) [Mass/Vol] 32.6 g/dL Normal 32.0-37.0 [facility] Comment on above: Performed By: #### C D:[id number], 0349709, 767386, 428413, 779542, 673097 #### [facility] [address] [place] [address] 14154 Gauger Delivery: Robert Ybarra MD MCV (RBC) [Entitic vol] 90.9 fL Normal 80.0-100.0 [facility] Comment on above: Performed By: #### C D:[id number], 4539327, 947805, 727368, 094290, 744697 #### [facility] [address] [place] [address] 05288 Gauger Delivery: Robert Ybarra MD MDW 16.08 Normal 13.98-20.[address] [facility] Comment on above: Result Comment: MDW [...] risk of Sepsis. Performed By: #### C D:[id number], 8709193, 694894, 527185, 381569, 451460 #### [facility] [address] [place] [address] 25888 Gauger Delivery: Robert Ybarra MD Platelet 347 x1000 Normal 150-[address] [facility] Comment on above: Performed By: #### C D:[id number], 1039922, 998356, 972398, 747550, 538175 #### [facility] [address] [place] [address] 55996 Gauger Delivery: Robert Ybarra MD Platelet mean volume (Bld) [Entitic vol] 6.7 fL Low 7.4-10.[address] [facility] Comment on above: Performed By: #### C D:[id number], 2041589, 335334, 743536, 776115, 986077 #### [facility] [address] [place] [address] 53502 Gauger Delivery: Robert Ybarra MD RBC 3.43 x10 Low 4.20-5.[address] [facility] Comment on above: Result Comment: Note : RBC morphology is normal unless otherwise stated. Evaluation performed only if differential is requested. Performed By: #### C D:[id number], 9788490, 439478, 278345, 549472, 718032 #### [facility] [address] [place] [address] 74886 Gauger Delivery: Robert Ybarra MD WBC 22.6 x10 High 4.5-11.[address] [facility] Comment on above: Performed By: #### C D:[id number], 1577067, 876549, 278613, 856721, 121364 #### [facility] [address] [place] [address] Gauger Delivery: Robert Ybarra MD I8on 12-03-2021 Anion gap [Moles/Vol] 16 mmol/L Normal 10-20 [facility] Comment on above: Performed By: #### C D:[id number] ####[facility] [id number] [place] [address] Medical Director: Robert Ybarra MD Chloride [Moles/Vol] 104 mmol/L Normal 98-109 [facility] Comment on above: Performed By: #### C D:[id number] ####[facility] [address] [place] [address] Medical Director: Robert Ybarra MD CO2 [Moles/Vol] 21 mmol/L Low 24-[address] [facility] Comment on above: Performed By: #### C D:[id number] ####[facility] [address] [place] [address] Medical Director: Robert Ybarra MD Creatinine [Mass/Vol] 1.7 mg/dL High 0.6-1.3 [facility] Comment on above: Performed By: #### C D:[id number] ####[facility] [address] [place] [address] Medical Director: Robert Ybarra MD Glucose [Mass/Vol] 268 mg/dL High 72-110 [facility] Comment on above: Performed By: #### C D:[id number] ####[facility] [address] [place] [address] Medical Director: Robert Ybarra MD Hct, I-Stat 30 %PCV Low 40-[address] [facility] Comment on above: Performed By: #### C D:[id number] ####[facility] [address] [place] [address] Medical Director: Robert Ybarra MD Hemoglobin (Bld) [Mass/Vol] 10.2 g/dL Low 14.0-18.[address] [facility] Comment on above: Result Comment: The calculation of hemoglobin from hematocrit assumes a normal MCHC. Performed By: #### C D:[id number] ####[facility] [address] [place] [address] Medical Director: Robert Ybarra MD Ionized Calcium, I-Stat 1.24 mmol/L Normal 1.12-1.[address] [facility] Comment on above: Performed By: #### C D:[id number] ####[facility] [address] [place] [address] Medical Director: Robert Ybarra MD Potassium [Moles/Vol] 5.2 mmol/L High 3.7-5.1 [facility] Comment on above: Performed By: #### C D:[id number] ####[facility] [address] [place] [address] Medical Director: Robert Ybarra MD Sodium [Moles/Vol] 134 mmol/L Low 138-146 [facility] Comment on above: Performed By: #### C D:[id number] ####[facility] [address] [place] [address] Medical Director: Robert Ybarra MD Urea nitrogen [Mass/Vol] 43 mg/dL High 8-[address] [facility] Comment on above: Performed By: #### C D:[id number] ####[facility] [address] [place] [address] Medical Director: Robert Ybarra MD PT INRon 12-03-2021 INR Coag (PPP) [Relative time] 1.0 {INR} Normal [facility] Comment on above: Result Comment: INR Reference Range: Normal reference range for INR on patients not on anticoagulant therapy: 0.9-1.1 General therapeutic range for patients on anticoagulant therapy: 2.0-3.5 Performed By: #### C D:[id number], 6412921, 042732, 566344, 280291, 451177 #### [facility] [address] [place] [address] Gauger Delivery: Robert Ybarra MD Protime Patient 11.7 seconds Normal 9.8-13.4 [facility] Comment on above: Performed By: #### C D:[id number], 8312501, 348161, 351885, 617179, 263049 #### [facility] [address] [place] [address] 71198 Gauger Delivery: Robert Ybarra MD TROPONIN HS 0HRon 12-03-2021 Troponin HS 0 Hr 66 pg/mL High 3-54 [facility] Comment on above: Performed By: #### C D:[id number], 7061849, 263807, 166773, 655015, 754095 #### [facility] [address] [place] [address] 49263 Gauger Delivery: Robert Ybarra MD XR CHEST PORTABLEon 12-03-19 [...] by: David Barraza MD 12/03/2021 7:26 PM FINANCIAL OFFICER Technologist: SR JOSE MARTIN,HENRY Dictated By: DAVID BARRAZA MD Signed By: DAVID BARRAZA MD Signed Out: 12/03/21 20:26:[address] [facility] XR PELVIS APon 12-03-2021 XR PELVIS [...] by: David Barraza MD 12/03/2021 7:26 PM FINANCIAL OFFICER Technologist: SR JOSE MARTIN,RL Dictated By: DAVID BARRAZA MD Signed By: DAVID BARRAZA MD Signed Out: 12/03/21 20:26:[address] [facility] pH Venouson 12-03-2021 pH Venous 7.196 Critically abnormal 7.310-7.[address] [facility] Comment on above: Result Comment: RESU LTS CALLED WITH READBACK TO DR. SABRINA MOHAN 12/03/2021 21:04:42 EST. Performed By: #### C D:[id number] ####[facility] [address] [place] [address] Medical Director: Robert Ybarra MD XR Shoulder - left 3 Viewson 07-14-2021 IMPRESSION: 1. Advanced glenoid humeral osteoarthritis and chronic rotator cuff arthropathy with increased glenoid humeral joint space narrowing compared to the prior study. Principal Cloud Architect: PHU Transcribe Date/Time: Jul 14 2021 9:03A [...] space narrowing compared to the prior study. Principal Cloud Architect: PSCB Transcribe Date/Time: Jul 14 2021 9:03A Dictated by : MIRNA VIZCAINO MD This examination was interpreted and the report reviewed and electronically signed by: MIRNA VIZCAINO MD on Jul 14 2021 9:05AM EST [facility] Radiology Study observation (narrative) Mira Miranda XR Shoulder - left 3 ViewsOr dered By: Ccf Provider on 07-14-2021 [facility] Vital Signs Date Time Vital Sign Value Performing Clinician Facility 02-13-2025 13:33-0400 Body temperature 97.7 [degF] Lien Bang DPM Work Phone: [facility] 02-13-2025 13:33-0400 Diastolic blood pressure 68 mm[Hg] Lien Bang DPM Work Phone: [facility] 02-13-2025 13:33-0400 Heart rate 101 /min Lien Bang DPM Work Phone: [facility] 02-13-2025 13:33-0400 Respiratory rate 20 /min Lien Bang DPM Work Phone: [facility] 02-13-2025 13:33-0400 SaO2% (BldA) [Mass fraction] 98 % Lien Bang DPM Work Phone: [facility] 02-13-2025 13:33-0400 Systolic blood pressure 119 mm[Hg] Lien Bang DPM Work Phone: [facility] 01-16-2025 13:41-0500 Body temperature 97.59 [degF] Lien Bang DPM Work Phone: [facility] 01-16-2025 13:41-0500 Diastolic blood pressure 73 mm[Hg] Lien Bang DPM Work Phone: [facility] 01-16-2025 13:41-0500 Heart rate 76 /min Lien Bang DPM Work Phone: [facility] 01-16-2025 13:41-0500 SaO2% (BldA) [Mass fraction] 96 % Liencece Bang DPM Work Phone: [facility] 01-16-2025 13:41-0500 Systolic blood pressure 132 mm[Hg] Lien Bang DPM Work Phone: [facility] 01-08-2025 13:32-0500 Body temperature 98.1 [degF] Pierce Chi MD Work Phone: [facility] 01-08-2025 13:32-0500 Diastolic blood pressure 74 mm[Hg] Pierce Chi MD Work Phone: [facility] 01-08-2025 13:32-0500 Heart rate 95 /min Pierce Chi MD Work Phone: [facility] 01-08-2025 13:32-0500 SaO2% (BldA) [Mass fraction] 97 % Pierce Chi MD Work Phone: [facility] 01-08-2025 13:32-0500 Systolic blood pressure 165 mm[Hg] Pierce Chi MD Work Phone: [facility] 01-04-2025 08:05-0500 Body height 152.4 cm Tyesha Singleton MD Work Phone: [facility] 01-04-2025 08:05-0500 Body mass index (BMI) [Ratio] 20.24 kg/m2 Tyesha Singleton MD Work Phone: [facility] 01-04-2025 08:05-0500 Body weight 47 kg Tyesha Singleton MD Work Phone: [facility] 01-04-2025 08:05-0500 Diastolic blood pressure 59 mm[Hg] Tyesha Singleton MD Work Phone: [facility] Comment on above: per facility paperwork BP is at baseline 01-04-2025 08:05-0500 Heart rate 84 /min Tyesha Singleton MD Work Phone: [facility] 01-04-2025 08:05-0500 Respiratory rate 16 /min Tyesha Singleton MD Work Phone: [facility] 01-04-2025 08:05-0500 Systolic blood pressure 165 mm[Hg] Tyesha Singleton MD Work Phone: [facility] Comment on above: per facility paperwork BP is at baseline 01-02-2025 08:44-0500 Diastolic blood pressure 72 mm[Hg] Grupo ochoa MD Work Phone: [facility] Comment on above: recheck 01-02-2025 08:44-0500 Systolic blood pressure 152 mm[Hg] Grupo Mendez MD Work Phone: [facility] Comment on above: recheck 01-02-2025 08:41-0500 Body mass index (BMI) [Ratio] 20.24 kg/m2 Grupo Mendez MD Work Phone: [facility] 01-02-2025 08:41-0500 Body temperature 97.9 [degF] Grupo Mendez MD Work Phone: [facility] 01-02-2025 08:41-0500 Body weight 47 kg Grupo Mendez MD Work Phone: [facility] 01-02-2025 08:41-0500 Heart rate 85 /min Grupo Mendez MD Work Phone: [facility] 01-02-2025 08:41-0500 Respiratory rate 18 /min Grupo Mendez MD Work Phone: [facility] 01-02-2025 08:41-0500 SaO2% (BldA) [Mass fraction] 96 % Grupo Mendez MD Work Phone: [facility] 12-26-2024 13:07-0500 Body temperature 97.3 [degF] Lien Bang DPM Work Phone: [facility] 12-26-2024 13:07-0500 Diastolic blood pressure 79 mm[Hg] Lien Bang DPM Work Phone: [facility] 12-26-2024 13:07-0500 Heart rate 96 /min Lien Bang DPM Work Phone: [facility] 12-26-2024 13:07-0500 SaO2% (BldA) [Mass fraction] 95 % Lien Bang DPM Work Phone: [facility] 12-26-2024 13:07-0500 Systolic blood pressure 164 mm[Hg] Lien Bang DPM Work Phone: [facility] 12-02-2024 12:26-0500 SaO2% (BldA) [Mass fraction] 92 % UNKNOWN PROVIDER [facility] Comment on above: Order Comment: Specimen Type: ARTERIAL B LOOD SPECIMENOrdering Facility: [facility] Address: [address] [place] [address] Performed By: #### A LLBG ####[facility]PIRATORYCL[id number] [id number] [place] [id number] 10-29-2024 16:27-0500 Diastolic blood pressure 72 mm[Hg] Ab Benson MD Work Phone: [facility] Comment on above: trupbp 10-29-2024 16:27-0500 Heart rate 66 /min Ab Benson MD Work Phone: [facility] 10-29-2024 16:27-0500 Systolic blood pressure 159 mm[Hg] Ab Benson MD Work Phone: [facility] Comment on above: trupbp 10-29-2024 16:24-0500 Body mass index (BMI) [Ratio] 20.67 kg/m2 Ab Benson MD Work Phone: [facility] 10-29-2024 16:24-0500 Body temperature 99.3 [degF] Ab Benson MD Work Phone: [facility] 10-29-2024 16:24-0500 Body weight 48 kg Ab Benson MD Work Phone: [facility] 10-29-2024 16:24-0500 SaO2% (BldA) [Mass fraction] 97 % Ab Benson MD Work Phone: [facility] 09-17-2024 15:04-0500 Body mass index (BMI) [Ratio] 22.48 kg/m2 Grupo Mendez MD Work Phone: [facility] 09-17-2024 15:04-0500 Body weight 52.2 kg Grupo Mendez MD Work Phone: [facility] 09-17-2024 15:04-0500 Diastolic blood pressure 88 mm[Hg] Grupo ocoha MD Work Phone: [facility] 09-17-2024 15:04-0500 Heart rate 92 /min Grupo Mendez MD Work Phone: [facility] 09-17-2024 15:04-0500 Respiratory rate 16 /min Grupo Mendez MD Work Phone: [facility] 09-17-2024 15:04-0500 SaO2% (BldA) [Mass fraction] 99 % Grupo Mendez MD Work Phone: [facility] 09-17-2024 15:04-0500 Systolic blood pressure 166 mm[Hg] Grupo Mendez MD Work Phone: [facility] 09-13-2024 10:45-0400 Diastolic blood pressure 60 mm[Hg] Migdalia Archibald Work Phone: [facility] 09-13-2024 10:45-0400 Systolic blood pressure 150 mm[Hg] Migdalia Cramer MD Work Phone: [facility] 09-13-2024 10:20-0400 Body mass index (BMI) [Ratio] 22.09 kg/m2 Migdalia Cramer MD Work Phone: [facility] 09-13-2024 10:20-0400 Body weight 51.3 kg Migdalia Cramer MD Work Phone: [facility] 09-13-2024 10:20-0400 Heart rate 98 /min Migdalia Cramer MD Work Phone: [facility] 08-14-2024 10:36-0400 Body mass index (BMI) [Ratio] 22 kg/m2 Migdalia Cramer MD Work Phone: [facility] 08-14-2024 10:36-0400 Body temperature 97.59 [degF] Migdalia Cramer MD Work Phone: [facility] 08-14-2024 10:36-0400 Body weight 51.1 kg Migdalia Cramer MD Work Phone: [facility] 08-14-2024 10:36-0400 Diastolic blood pressure 68 mm[Hg] Migdalia Archibald Work Phone: [facility] 08-14-2024 10:36-0400 Heart rate 91 /min Migdalia Cramer MD Work Phone: [facility] 08-14-2024 10:36-0400 SaO2% (BldA) [Mass fraction] 96 % Migdalia Cramer MD Work Phone: [facility] 08-14-2024 10:36-0400 Systolic blood pressure 125 mm[Hg] Migdalia Cramer MD Work Phone: [facility] 07-12-2024 09:59-0400 Diastolic blood pressure 70 mm[Hg] Migdalia Archibald Work Phone: [facility] 07-12-2024 09:59-0400 Systolic blood pressure 142 mm[Hg] Migdalia Cramer MD Work Phone: [facility] 07-12-2024 09:31-0400 Body mass index (BMI) [Ratio] 21.23 kg/m2 Migdalia Cramer MD Work Phone: [facility] 07-12-2024 09:31-0400 Body weight 49.3 kg Migdalia Cramer MD Work Phone: [facility] 07-12-2024 09:31-0400 Heart rate 80 /min Migdalia Cramer MD Work Phone: [facility] 04-13-2023 15:23-0400 Body temperature 98.01 [degF] Willie Mitsch 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 Work Phone: [facility] 04-13-2023 15:23-0400 Body weight 54.07 kg Willie Mitsch 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 Work Phone: [facility] 04-13-2023 15:23-0400 Diastolic blood pressure 63 mm[Hg] Willie Mitsch 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 Work Phone: [facility] 04-13-2023 15:23-0400 Heart rate 80 /min Willie Mitsch 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 Work Phone: [facility] 04-13-2023 15:23-0400 Systolic blood pressure 125 mm[Hg] Willie Mitsch 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 Work Phone: [facility] 03-29-2023 15:26-0400 Body weight 53.34 kg Willie Mitsch 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 Work Phone: [facility] 03-29-2023 15:26-0400 Diastolic blood pressure 71 mm[Hg] Willie Mitsch 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 Work Phone: [facility] 03-29-2023 15:26-0400 Heart rate 80 /min Willie Mitsch 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 Work Phone: [facility] 03-29-2023 15:26-0400 Systolic blood pressure 150 mm[Hg] Willie Mitsch 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 Work Phone: [facility] 03-17-2023 14:18-0400 Body weight 54.88 kg Willie Mitsch 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 Work Phone: [facility] 03-17-2023 14:18-0400 Diastolic blood pressure 67 mm[Hg] Willie Mitsch 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 Work Phone: [facility] 03-17-2023 14:18-0400 Heart rate 86 /min Willie Mitsch 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 Work Phone: [facility] 03-17-2023 14:18-0400 Systolic blood pressure 146 mm[Hg] Willie Mitsch 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 Work Phone: [facility] 10-23-2022 08:59-0500 Body weight 55.48 kg Migdalia Cramer MD Work Phone: [facility] 10-23-2022 08:59-0500 Diastolic blood pressure 82 mm[Hg] Migdalia Archibald Work Phone: [facility] 10-23-2022 08:59-0500 Heart rate 87 /min Migdalia Cramer MD Work Phone: [facility] 10-23-2022 08:59-0500 Systolic blood pressure 145 mm[Hg] Migdalia Cramer MD Work Phone: [facility] 05-08-2022 08:07-0400 Diastolic blood pressure 70 mm[Hg] Migdalia Archibald Work Phone: [facility] 05-08-2022 08:07-0400 Heart rate 70 /min Migdalia Cramer MD Work Phone: [facility] 05-08-2022 08:07-0400 Systolic blood pressure 130 mm[Hg] Migdalia Cramer MD Work Phone: [facility] 05-08-2022 08:05-0400 Body weight 53.48 kg Migdalia Cramer MD Work Phone: [facility] 04-03-2022 08:08-0400 Body temperature 98.01 [degF] Migdalia Cramer MD Work Phone: [facility] 04-03-2022 08:08-0400 Body weight 52.34 kg Migdalia Cramer MD Work Phone: [facility] 04-03-2022 08:08-0400 Diastolic blood pressure 68 mm[Hg] Migdalia Archibald Work Phone: [facility] 04-03-2022 08:08-0400 Heart rate 76 /min Migdalia Cramer MD Work Phone: [facility] 04-03-2022 08:08-0400 Systolic blood pressure 137 mm[Hg] Migdalia Cramer MD Work Phone: [facility] Encounters Encounter Date Encounter Type Care Provider Facility Start: 07-05-2025 End: 07-05-2025 Telephone encounter Marco A Merida PA-C Work Phone: [facility] Start: 07-01-2025 End: 07-02-2025 ambulatory Migdalia Cramer MD Work Phone: Family Medicine Comment on above: Yusuf's care Start: 06-28-2025 End: 07-01-2025 ambulatory Migdalia Cramer MD Work Phone: Family Medicine Comment on above: [facility] Start: 06-24-2025 ambulatory Mario Deperro OLS Facili ty:[facility] Start: 06-20-2025 ambulatory Mario Deperro OLS Facili ty:[facility] Start: 06-04-2025 ambulatory Mario Deperro OLS Facili ty:[facility] Start: 05-28-2025 End: 05-28-2025 Telephone encounter Tyesha Singleton MD Work Phone: Rheumatology Comment on above: Results (Outside lab results) Start: 05-27-2025 ambulatory Mario Deperro OLS Facili ty:[facility] Start: 05-01-2025 End: 05-01-2025 Telephone encounter Tyesha Singleton MD Work Phone: Rheumatology Start: 04-29-2025 ambulatory Mario Deperro OLS Facili ty:[facility] Start: 04-26-2025 ambulatory Mario Deperro OLS Facili ty:[facility] Start: 04-10-2025 ambulatory Mario Deperro OLS Facili ty:[facility] Start: 04-10-2025 Registered Referred Mario Mak [facility] Start: 04-01-2025 End: 04-01-2025 ambulatory Mario Mak MD [facility] Work Phone: Start: 04-01-2025 End: 04-01-2025 Departed Referred Mario Mak MD [facility] Start: 04-01-2025 Registered Referred Mario Mak MD [facility] Start: 04-01-2025 End: 04-01-2025 ambulatory Mario RODAS Facility:[facility] Start: 03-12-2025 End: 03-12-2025 ambulatory Mario Mak MD [facility] Work Phone: Start: 03-12-2025 End: 03-12-2025 Departed Referred Mario Mak MD [facility] Start: 03-12-2025 Registered Referred Mario Mak MD [facility] Start: 03-12-2025 End: 03-12-2025 ambulatory Mario RODAS Facility:[facility] Start: 03-04-2025 End: 03-04-2025 ambulatory Mario Mak MD [facility] Work Phone: Start: 03-04-2025 End: 03-04-2025 Departed Referred Mario Mak MD [facility] Start: 03-04-2025 End: 03-04-2025 ambulatory Mario RODAS Facility:[facility] Start: 02-13-2025 End: 02-13-2025 Patient encounter procedure Lien Bang DPM Work Phone: Plastic Surgery Comment on above: 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 Start: 02-04-2025 Registered Referred Mario Mak MD [facility] Start: 02-04-2025 End: 02-04-2025 ambulatory Mario RODAS Facility:[facility] Start: 01-16-2025 End: 01-18-2025 Refill Willie Kaur APRN.CNP Work Phone: Family Medicine Comment on above: Refill Request Start: 01-16-2025 End: 01-16-2025 ambulatory LIEN BANG Facility:[facility] Start: 01-16-2025 End: 01-16-2025 Patient encounter procedure Lien Bang DPM Work Phone: Plastic Surgery Comment on above: Pressure injury of r ight ankle, stage 3 (HCC) (Primary Dx) Start: 01-15-2025 End: 01-15-2025 ambulatory Mario Mak MD [facility] Work Phone: Start: 01-15-2025 End: 01-15-2025 Departed Referred Mario Mak MD -[facility] Start: 01-15-2025 End: 01-15-2025 ambulatory Mario RODAS Facility:[facility] Start: 01-08-2025 End: 01-08-2025 Patient [...] Start: 01-08-2025 End: 01-08-2025 ambulatory UNKNOWN PROVIDER Facility:[facility] Start: 01-07-2025 ambulatory Mario RODAS Facili ty:[facility] Start: 01-07-2025 Registered Referred Mario Mak MD -[facility] Start: 01-04-2025 End: 01-04-2025 ambulatory TYESHA SINGLETON Facility:[facility] Start: 01-04-2025 End: 01-04-2025 Office outpatient new 45 minutes Tyesha Singleton MD Work Phone: Rheumatology Comment on above: Pseudogout (Primary Dx); Ankle swelling, right; Medication monitoring encounter Start: 01-03-2025 End: 01-10-2025 Telephone encounter Migdalia Cramer MD Work Phone: [address] [place] [address] Comment on above: Patient Update Start: 01-02-2025 End: 01-02-2025 Telephone encounter Aditi ALLEN Work Phone: Hematology/Oncology Comment on above: Distress Assessment Start: 01-02-2025 End: 01-02-2025 ambulatory GRUPO ANDREA Facility:[facility] Start: 01-02-2025 End: 01-02-2025 ambulatory Grupo Mendez MD Work Phone: Hematology/Oncology Comment on above: Leukocytosis, unspec ified type (Primary Dx); Normocytic anemia; Vitamin B6 deficiency; Cellulitis of right ankle Start: 01-02-2025 End: 01-02-2025 Patient encounter procedure Grupo Mendez MD Work Phone: Hematology/Oncology Start: 2024 ambulatory Mario Coburn ty:[facility] Start: 2024 Registered Referred Mario Mak MD -[facility] Start: 12-26-2024 End: 12-26-2024 Telephone encounter Migdalia Cramer MD Work Phone: Internal Medicine [place] Comment on above: rehab discharge conc erns [...] Refill Willie Kaur APRN.CNP Work Phone: Family [facility] Comment on above: Refill Request Start: 12-24-2024 ambulatory Mario Coburn ty:[facility] Start: 12-24-2024 Registered Referred Mario Mak MD -[facility] Start: 12-18-2024 End: 12-18-2024 E-mail encounter from caregiver Willie Kaur APRN.CNP Work Phone: Family Medicine Start: 12-18-2024 End: 12-18-2024 Follow-up encounter Willie Kaur APRN.CNP Work Phone: Family Medicine Comment on above: hospital and shelter facility follow up Start: 12-17-2024 ambulatory Mario Coburn ty:[facility] Start: 12-17-2024 Registered Referred Marioscottie aMk MD -[facility] Start: 12-12-2024 End: 12-12-2024 Evaluation and management of inpatient DANIEL CASTILLO Facility:[facility] Start: 12-10-2024 End: 12-10-2024 Evaluation and management of inpatient DANIEL CASTILLO Facility:[facility] Start: 11-29-2024 End: 01-08-2025 Telephone encounter Pierce Chi MD Work Phone: [facility] Comment on above: [employer] (FO R IDC USE ONLY) Start: 11-28-2024 End: 11-28-2024 ambulatory Pierce Chi MD Work Phone: [place] Provider Adult Comment on above: [employer] Start Start: 11-26-2024 End: 11-26-2024 Telephone encounter Grupo Mendez MD Work Phone: Hematology/Oncology Comment on above: Appointment Start: 11-23-2024 End: 11-27-2024 Refill Willie Kaur APRN.FARM MARKETER Work Phone: Family Medicine Comment on above: Refill Request Start: 11-21-2024 End: 12-12-2024 Evaluation and management of inpatient SHAUN SUAREZ Facility:[facility] Start: 11-21-2024 End: 11-22-2024 ambulatory Migdalia Cramer MD Work Phone: Family Medicine Comment on above: MRi and tests Start: 11-19-2024 End: 11-19-2024 ambulatory GRUPO ANDREA Facility:[facility] Start: 11-19-2024 End: 11-19-2024 ambulatory SIMONE KEVIN Facility:[facility] Start: 11-19-2024 End: 11-19-2024 Subsequent hospital visit by physician Hali [facility] (I-Stat/3t) [facility] Comment on above: Chronic pain of righ t ankle [M25.571, G89.29] Start: 11-06-2024 End: 11-06-2024 ambulatory [place] Andrea MD Work Phone: Hematology/Oncology Comment on above: [employer] up coming a ppt Start: 11-06-2024 End: 12-11-2024 Telephone encounter Willie Kaur APRN.FARM MARKETER Work Phone: Family Medicine Comment on above: Appointment (Rheumat ology) Start: 11-05-2024 End: 11-05-2024 Telephone encounter Grupo Mendez MD Work Phone: Hematology/Oncology Comment on above: Results Start: 11-01-2024 End: 11-01-2024 ambulatory SIMONE KEVIN Facility:[facility] Start: 11-01-2024 End: 11-01-2024 ambulatory SELF Facility:[facility] Start: 11-01-2024 End: 11-01-2024 Patient encounter procedure Simone Kevin MD Work Phone: [facility] Comment on above: Right ankle swelling (Primary Dx); Chronic pain of right ankle Start: 11-01-2024 End: 11-01-2024 Subsequent hospital visit by physician Max [facility] 1 [facility] Comment on above: Right ankle swelling [M25.471] Start: 10-29-2024 End: 10-29-2024 ambulatory AB BENSON Facility:[facility] Start: 10-29-2024 End: 10-29-2024 Office outpatient visit 15 minutes Ab Benson MD Work Phone: Family Medicine Comment on above: Chronic pain of righ t ankle (Primary Dx) Start: 10-11-2024 End: 10-12-2024 Refill Willie Kaur APRN.FARM MARKETER Work Phone: Family Medicine Comment on above: Refill Request Start: 09-20-2024 End: 09-20-2024 ambulatory GRUPO MENDEZ Facility:[facility] Start: 09-20-2024 End: 09-20-2024 Patient encounter procedure Simone Kevin MD Work Phone: [facility] Comment on above: Right ankle swelling ; Closed nondisplaced fracture of right calcaneus, unspecified portion of calcaneus, initial encounter Start: 09-19-2024 End: 09-19-2024 ambulatory MIGDALIA CRAMER Facility:[facility] Start: 09-19-2024 End: 09-19-2024 Subsequent hospital visit by physician Max [facility] Adryan Work Phone: Radiology Comment on above: Pain in joint involv ing right ankle and foot [M25.571] Start: 09-18-2024 End: 09-18-2024 Telephone encounter Grupo Mendez MD Work Phone: Hematology/Oncology Comment on above: Results (Suspicion f or calcaneal bone fracture ) Start: 09-18-2024 ambulatory GRUPO ANDREA [facility] Start: 09-18-2024 End: 09-18-2024 Subsequent hospital visit by physician [facility] Work Phone: Radiology Comment on above: Right ankle swelling [M25.471] Start: 09-17-2024 End: 09-18-2024 ambulatory GRUPO ANDREA Facility:[facility] Start: 09-17-2024 End: 09-17-2024 Subsequent hospital visit by physician Max [facility] Work Phone: Radiology Comment on [...] Start: 09-13-2024 End: 09-13-2024 ambulatory MIGDALIA CRAMER Facility:[facility] Start: 09-13-2024 End: 09-13-2024 Patient encounter procedure [...] Cramer MD Work Phone: Family [facility] Comment on above: Lab results and next steps Start: 09-04-2024 End: 09-05-2024 E-mail encounter from caregiver Migdalia Cramer MD Work Phone: Family Medicine Start: 08-21-2024 End: 08-24-2024 Refill Migdalia Cramer MD Work Phone: Family [facility] Comment on above: Refill Request Results Start: 08-14-2024 End: 08-14-2024 ambulatory WILLIE KAUR Facility:[facility] Start: 08-14-2024 End: 08-14-2024 ambulatory MARIUSZ ROMO Facility:[facility] Start: 08-14-2024 End: 08-14-2024 Office outpatient visit 25 minutes Migdalia Cramer MD Work Phone: Family [facility] Comment on above: Generalized weakness (Primary Dx); Headache, unspecified headache type; Leukocytosis, unspecified type; CKD stage 3 due to type 2 diabetes mellitus (HCC); Normocytic anemia; Essential hypertension; Insomnia; Arthralgia, unspecified joint Start: 08-13-2024 End: 08-13-2024 Emergency department patient visit MARIUSZ ROMO Facility:[facility] Start: 08-13-2024 End: 08-13-2024 ambulatory Migdalia Cramer MD Work Phone: Family [facility] Comment on above: Fatigue Start: 08-09-2024 End: 08-10-2024 Refill Willie Mitsch 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 Work Phone: [facility] Comment on above: Refill Request Start: 07-19-2024 End: 07-19-2024 Refill Migdalia Cramer MD Work Phone: [facility] Comment on above: Refill Request Start: 07-12-2024 End: 07-12-2024 ambulatory MIGDALIA CRAMER Facility:[facility] Start: 07-12-2024 End: 07-12-2024 Office outpatient visit 25 minutes Migdalia Cramer MD Work Phone: [facility] Comment on above: Essential hypertensi on (Primary [...] Start: 07-11-2024 End: 07-11-2024 ambulatory WILLIE MITSCH Facility:[facility] Start: 05-23-2024 Refill Willie Mitsch 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 Work Phone: [facility] Comment on above: Refill Request Start: 04-25-2024 Refill Willie Mitsch 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 Work Phone: [facility] Comment on above: Refill Request Start: 04-16-2024 Telephone encounter Migdalia hidalgo MD Work Phone: [facility] Comment on above: Medication Problem Start: 03-21-2024 End: 03-21-2024 Patient encounter procedure Gertrudis Bill DO Work Phone: Ophthalmology Comment on above: Type 2 diabetes karen itus without retinopathy (HCC) (Primary Dx); Pseudophakia Start: 03-13-2024 ambulatory Lien Rutledge [facility] Start: 03-13-2024 Patient encounter procedure Lien Rutledge MA [facility] Comment on above: Population Health Na vigation Outreach ([facility] AWV Adryan PCSA/) Start: 02-28-2024 Refill Migdalia gordon MD Work Phone: Family Medicine Start: 02-01-2024 Refill Ok Stockton Work Phone: [facility] Comment on above: Refill Request Start: 01-31-2024 Refill Ok Stockton Work Phone: [facility] Comment on above: Refill Request Start: 01-23-2024 Refill Migdalia gordon MD Work Phone: Family [facility] Comment on above: Refill Request Start: 01-11-2024 Refill Migdalia gordon MD Work Phone: Family Medicine Start: 10-14-2023 Refill Migdalia gordon MD Work Phone: Family Medicine Comment on above: Refill Request Start: 09-05-2023 [...] levels Start: 04-28-2023 ambulatory No Pcp Christelle Smith Start: 04-19-2023 Telephone encounter Migdalia hidalgo MD Work Phone: Family Medicine Comment on above: Appointment (Re: [facility]) Patient Question (Re : Blood Glucose Monitor) Start: 04-13-2023 End: 04-13-2023 Patient encounter procedure Willie Mitsch 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 Work Phone: Family Medicine Comment on above: Diabetes mellitus, n on-insulin dependent (NIDDM or type II) (HCC) (Primary Dx); CKD stage 3 due to type 2 diabetes mellitus (HCC) Start: 03-29-2023 End: 03-29-2023 Patient encounter procedure Willie Kaur 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 Work Phone: Family Medicine Comment on above: Diabetes mellitus, n on-insulin dependent (NIDDM or type II) (HCC) (Primary Dx); Essential hypertension; CKD stage 3 due to type 2 diabetes mellitus (HCC) Start: 03-24-2023 Telephone encounter Migdalia hidalgo MD Work Phone: Family Medicine Comment on above: Patient Update ([facility] update on how it is working with the change in medication -please call her caregiver Demetria ) Start: 03-22-2023 Telephone encounter Migdalia hidalgo MD Work Phone: Family Medicine Comment on above: Patient Question Start: 03-17-2023 End: 03-17-2023 Patient encounter procedure Willie Kaur 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 Work Phone: Family Medicine Comment on above: Pain in both hands ( Primary Dx); Pain in both wrists; Leukocytosis, unspecified type; Type 2 diabetes mellitus with stage 3 chronic kidney disease, without long-term current use of insulin, unspecified whether stage 3a or 3b CKD (HCC); Muscular deconditioning Start: 03-10-2023 Patient Outreach Lien jensen RN Work Phone: [employer] Comment on above: Transition Of Care ( [facility], initial outreach) Start: 02-22-2023 Refill Willie Kaur APRN.FARM MARKETER Work Phone: Family Medicine [place] Comment on above: Refill Request Start: 01-19-2023 Telephone encounter Migdalia hidalgo MD Work Phone: Family Medicine Comment on above: Refill Request Start: 12-28-2022 Refill Willie Kaur APRN.FARM MARKETER Work Phone: Family Medicine Comment on above: [...] Start: 04-27-2022 ambulatory Katia Farooq RN [facility] Start: 04-27-2022 Follow-up encounter Katia love RN [employer] Comment on above: Transition Of Care ( TCM follow up) Start: 04-26-2022 Telephone encounter Migdalia hidalgo MD Work Phone: [facility] Comment on above: Patient Question Start: 04-08-2022 Telephone encounter Migdalia hidalgo MD Work Phone: [facility] Comment on above: Lab Orders Start: 04-03-2022 End: 04-03-2022 Patient encounter procedure Migdalia Cramer MD Work Phone: [facility] Comment on above: Acute cystitis witho ut [...] 03-30-2022 ambulatory Migdalia gordon MD Work Phone: [facility] Comment on above: Pain; UTI Start: 03-29-2022 Telephone encounter Willie norman APRN.FARM MARKETER Work Phone: [facility] Comment on above: Appointment (please make sure she schedules hospital follow up) Start: 03-23-2022 Refill Migdalia gordon MD Work Phone: Internal Medicine Comment on above: Refill Request Start: 03-19-2022 Refill Willie Kaur APRN.FARM MARKETER Work Phone: [facility] Comment on above: Refill Request Start: 02-25-2022 Telephone encounter Migdalia hidalgo MD Work Phone: [facility] Comment on above: Medication Request Start: 12-25-2021 Refill Migdalia gordon MD Work Phone: [facility] Comment on above: Refill Request Start: 07-14-2021 End: 07-14-2021 Subsequent hospital visit by physician Max [facility] Work Phone: Radiology Comment on above: Pain [R52] Procedures Date Procedure Procedure Detail Performing Clinician Start: 04-10-2025 Urine culture Mario mendoza MD Start: 04-10-2025 Urnls dip stick/tabl et reagent auto microscopy Mario Mak MD Start: 01-07-2025 Measurement of renal function Mario Mak MD Comment on above: GFR Calc Start: 01-02-2025 Antibody screen TYESHA CRYSTAL Comment on above: Order Comment: Speci men Type: BLOOD SPECIMEN Ordering Facility: [facility] Address: [address] [place] [address] Performed By: #### B [id number] #### [facility] CLIA [id number] [address] [place] [address] OF PRIMO #### [id number] #### [facility] CLIA [id number] [address] [place] [address] Start: 2024 Measurement of renal function Mario [...] MD Work Phone: Start: 06-14-2012 Colonoscopy Migdalia hlot MD Work Phone: Plan of Treatment Date Care Activity Detail Author Start: 09-13-2025 Anxiety Screening Anxiety Screening [facility] Start: 09-13-2025 Covid-19 Vaccine ( season) Covid-19 Vaccine ( season) [facility] Comment on above: Postponed from 07/15/2024 (Declined at t his time) Start: 09-13-2025 Depression Screening Depression Screening [facility] Start: 09-13-2025 Diabetic foot examination Diabetic Foot Exam [facility] Start: 09-13-2025 RSV Vaccine (1 - 1-dose 75+ series) RSV Vaccine (1 - 1-dose 75+ series) [facility] Comment on above: Postponed from 2010 (Declined at t his time) Start: 09-13-2025 Shingrix Vaccine (2 of 3) Shingrix Vaccine (2 of 3) [facility] Comment on above: Postponed from 03/19/2015 (Declined at t his time) Start: 09-13-2025 Urine microalbumin profile DTaP,Tdap,Td Vaccine (1 - Tdap) [facility] Comment on above: Postponed from 1954 (Declined at t his time) Start: 08-14-2025 Hepatitis B screening Urine Albumin:Creatinine Ratio [facility] Start: 07-15-2025 Influenza vaccination [facility] Start: 07-11-2025 Hepatitis B surface antibody level LDL Cholesterol [facility] Start: 07-05-2025 End: 07-05-2025 Patient encounter procedure Rheumatology Comment on above: Return in about 6 months (around 07/04/20 25) for Pseudogout 20m. F/u 6 months Start: 05-13-2025 Influenza vaccination Influenza Vaccine (#1) [facility] Comment on above: Postponed from 07/15/2024 (Declined at t his time) Start: 03-21-2025 Glaucoma screening Dilated Retinal Exam [facility] Start: 03-12-2025 End: 03-12-2025 Patient encounter procedure 03/12/2025 9:00 AM EDT Office Visit Family Medicine [address] [place] [address] [place] [address] [place] [address] 6 month follow up Family Medicine Comment on above: 6 month follow up Start: 02-19-2025 Hemoglobin A1c measurement HbA1C [facility] Start: 02-13-2025 End: 05-15-2025 CBC W Auto Differential panel - Blood COMPLETE BLOOD COUNT AND DIFFERENTIAL Lab Routine Normocytic anemia Expected: 02/13/2025, Expires: 05/15/2025 [facility] Work Phone: Comment on above: Expected: 02/13/2025, Expires: Start: 02-13-2025 End: 05-15-2025 Comprehensive metabolic 2000 panel - Serum or Plasma COMPREHENSIVE METABOLIC PANEL Lab Routine Normocytic anemia Expected: 02/13/2025, Expires: 05/15/2025 [facility] Comment on above: Expected: 02/13/2025, Expires: Start: 02-13-2025 End: 05-15-2025 Pyridoxine [Mass/volume] in Serum or Plasma VITAMIN B6/PYRIDOXIN Lab Routine Normocytic anemia Vitamin B6 deficiency Expected: 02/13/2025, Expires: 05/15/2025 [facility] Comment on above: Expected: 02/13/2025, Expires: Start: 02-13-2025 End: 02-13-2025 Patient encounter procedure 02/13/2025 1:30 PM EDT Office Visit Plastic Surgery [address] [place] [address] Lien Bang, DPTj [address] [facility], [address] [place] [address] appt confirmed with Nj at [facility] Right ankle-rescheduled with Malia at [facility] 01-28-2025 10:22am-KT Plastic Surgery Comment on above: appt confirmed with Nj at [facility] Right ankle-rescheduled with Malia at [facility] 01-28-2025 10:22am-KT Start: 02-11-2025 End: 09-13-2025 Basic metabolic 2000 panel - Serum or Plasma BASIC METABOLIC PANEL Lab Routine Essential hypertension Hypertensive kidney disease with stage 3b chronic kidney disease (HCC) CKD stage 3 due to type 2 diabetes mellitus (HCC) Diabetes mellitus, non-insulin dependent (NIDDM or type II) (HCC) Expected: 02/11/2025, Expires: 09/13/2025 [facility] Work Phone: Comment on above: Expected: 02/11/2025, Expires: Start: 02-11-2025 End: 05-13-2025 CBC panel - Blood by Automated count COMPLETE BLOOD COUNT Lab Routine Iron deficiency anemia, unspecified iron deficiency anemia type Leukocytosis, unspecified type Expected: 02/11/2025, Expires: 05/13/2025 [facility] Comment on above: Expected: 02/11/2025, Expires: Start: 02-11-2025 End: 09-13-2025 Hemoglobin A1c in Blood HEMOGLOBIN A1C Lab Routine Diabetes mellitus, non-insulin dependent (NIDDM or type II) (HCC) Expected: 02/11/2025, Expires: 09/13/2025 [facility] Comment on above: Expected: 02/11/2025, Expires: Start: 02-11-2025 End: 09-13-2025 LIPID PANEL, NONFASTING LIPID PANEL, NONFASTING Lab Routine Hyperlipidemia associated with type 2 diabetes mellitus (HCC) (HCC) Diabetes mellitus, non-insulin dependent (NIDDM or type II) (HCC) Expected: 02/11/2025, Expires: 09/13/2025 [facility] Comment on above: Expected: 02/11/2025, Expires: Start: 01-30-2025 End: 01-30-2025 Patient encounter procedure 01/30/2025 1:30 PM EDT Office Visit Plastic Surgery [address] [place] [address] Lien Bang DPM [address], [address] [place] [address] Right ankle Plastic Surgery Comment on above: Right ankle Start: 01-16-2025 End: 01-16-2025 Patient encounter procedure 01/16/2025 1:00 PM EST Office Visit Plastic Surgery [address] [place] [address] Lien Bang DPM [address] [facility], [address] [place] [address] Right ankle Plastic Surgery Comment on above: Right ankle Start: 01-08-2025 End: 01-08-2025 Patient encounter procedure Plastic Surgery Comment on above: new to us f/u abx from hospital visit pa tient from [facility] [phone] f/u abx from hospita l visit patient from [facility] [phone] confirmed with Nj at [facility] 01/04/2021 f/u abx from hospital visit patient from [facility] [phone] Start: 01-04-2025 End: 01-04-2025 Patient encounter procedure 01/04/2025 8:00 AM EST Office Visit Rheumatology [address] [place] [address] Tyesha Singleton MD [address] [facility] [address] [place] [address] mcghee Rheumatology Comment on above: Inflammatory Arthritis per dr mcghee Start: 01-02-2025 End: 01-02-2025 Follow-up encounter 01/02/2025 8:30 AM EST Visit (SP) Office Hematology/Oncology [address] [place] [address] [place] [address] [place] [address] Follow up Hematology/Oncology Comment on above: Follow up Start: 12-26-2024 End: 12-26-2024 Patient encounter procedure 12/26/2024 1:00 PM EST Office Visit Plastic Surgery [address] [place] [address] Lien Bang, ANIRUDH [address] [facility], [address] [place] [address] new to us right ankle -f/u from [...] EST - 11/27/2024 3:53 PM EST Surgery [facility] Surgery [address] [place] [address] Keerthi Plata, ANIRUDH [address] [facility], [address] [place] [address] INCISION AND DRAINAGE ABSCESS EXTREMITY LOWER SIMPLE OR SINGLE [facility] Surgery Comment on above: INCISION AND DRAINAGE [...] 9:10 AM EST Visit (SP) Office Hematology/Oncology [address] [place] [address] [place] [address] [place] [address] folow up Iron Hematology/Oncology Comment on above: folow up Iron Start: 11-21-2024 End: 02-20-2025 CBC W Auto Differential panel - Blood COMPLETE BLOOD COUNT AND DIFFERENTIAL Lab Routine Normocytic anemia Leukocytosis, unspecified type Expected: 11/21/2024, Expires: 02/20/2025 [facility] Work Phone: Comment on above: Expected: 11/21/2024, Expires: Start: 11-21-2024 End: 02-20-2025 Ferritin [Mass/volume] in Serum or Plasma FERRITIN Lab Routine Normocytic anemia Expected: 11/21/2024, Expires: 02/20/2025 [facility] Comment on above: Expected: 11/21/2024, Expires: Start: 11-21-2024 End: 02-20-2025 Iron and Iron binding capacity panel - Serum or Plasma IRON AND TIBC Lab Routine Normocytic anemia Expected: 11/21/2024, Expires: 02/20/2025 [facility] Comment on above: Expected: 11/21/2024, Expires: Start: 11-21-2024 End: 02-20-2025 Zinc [Mass/volume] in Serum or Plasma ZINC BLD Lab Routine Normocytic anemia Expected: 11/21/2024, Expires: 02/20/2025 [facility] Comment on above: Expected: 11/21/2024, Expires: Start: 11-21-2024 End: 11-21-2024 ambulatory 11/21/2024 9:15 AM EST Results Only [facility] [address] [place] [address] lab [facility] Comment on above: lab Start: 11-19-2024 End: 11-19-2024 Patient encounter procedure 11/19/2024 9:30 AM EST Appointment MRI [facility] [address] [place] [address] Chronic pain of right ankle [M25.571, G89.29] MRI [facility] Comment on above: Chronic pain of right ankle [M25.571, G8 9.29] Start: 11-14-2024 Advance Directive Discussion Advance Directive Discussion [facility] Start: 11-14-2024 Hemoglobin A1c measurement HbA1C [facility] Start: 11-14-2024 Medicare Advantage Annual Wellness Visit Medicare Advantage Annual Wellness Visit [facility] Start: 11-01-2024 End: 01-31-2025 C reactive protein [Mass/volume] in Serum or Plasma [facility] Comment on above: Expected: 11/01/2024, Expires: Start: 11-01-2024 End: 01-31-2025 Erythrocyte sedimentation rate [facility] Comment on above: Expected: 11/01/2024, Expires: Start: 10-11-2024 Hemoglobin A1c measurement HbA1C [facility] Start: 09-20-2024 End: 09-20-2024 Patient encounter procedure 09/20/2024 9:10 AM EST Office Visit Orthopaedic Surgery [facility] [address] [place] [address] Simone Kevin MD [address] [place] [address] Right ankle swelling [M25.471]; Closed nondisplaced fracture of right calcaneus, unspecified portion of calcaneus, initial encounter [S92.001A] Orthopaedic Surgery [facility] Comment on above: Right ankle swelling [M25.471]; Closed n ondisplaced fracture of right calcaneus, unspecified portion of calcaneus, initial encounter [S92.001A] Start: 09-18-2024 End: 09-18-2024 Patient encounter procedure 09/18/2024 8:15 AM EST Appointment Radiology [address] [place] [address] Right ankle swelling [M25.471] Radiology Comment on above: Right ankle swelling [M25.471] Start: 09-17-2024 End: 09-17-2024 [facility]QHC visit new patient 09/17/2024 3:10 PM EST Visit (SP) Office Hematology/Oncology [address] [place] [address] [place] [address] [place] [address] New patient Hematology/Oncology Comment on above: New patient Start: 09-17-2024 End: 12-17-2024 Pyridoxine [Mass/volume] in Serum or Plasma [facility] Work Phone: Comment on above: Expected: 09/17/2024, Expires: Start: 09-13-2024 End: 09-13-2024 Patient encounter procedure 09/13/2024 10:00 AM EDT Office Visit Family Medicine [id number] [place], [place] [id number] [place] [address] [place] [address] AWV Due Family Medicine Comment on above: AWV Due Start: 09-11-2024 End: 12-11-2024 Basic metabolic 2000 panel - Serum or Plasma BASIC METABOLIC PANEL Lab Routine CKD stage 3 due to type 2 diabetes mellitus (HCC) Hypertensive kidney disease with stage 3b chronic kidney disease (HCC) Essential hypertension Diabetes mellitus, non-insulin dependent (NIDDM or type II) (HCC) Expected: 09/11/2024, Expires: 12/11/2024 [facility] Work Phone: Comment on above: Expected: 09/11/2024, Expires: Start: 09-11-2024 End: 12-11-2024 CBC panel - Blood by Automated count COMPLETE BLOOD COUNT Lab Routine Iron deficiency anemia, unspecified iron deficiency anemia type Expected: 09/11/2024, Expires: 12/11/2024 [facility] Comment on above: Expected: 09/11/2024, Expires: Start: 09-11-2024 End: 12-11-2024 Hemoglobin A1c in Blood HEMOGLOBIN A1C Lab Routine Diabetes mellitus, non-insulin dependent (NIDDM or type II) (HCC) Expected: 09/11/2024, Expires: 12/11/2024 [facility] Comment on above: Expected: 09/11/2024, Expires: Start: 09-11-2024 End: 12-11-2024 Microalbumin/Creatinine [Mass Ratio] in Urine ALBUMIN/CREATININE RATIO, URINE Lab Routine CKD stage 3 due to type 2 diabetes mellitus (HCC) Essential hypertension Diabetes mellitus, non-insulin dependent (NIDDM or type II) (HCC) Expected: 09/11/2024, Expires: 12/11/2024 [facility] Comment on above: Expected: 09/11/2024, Expires: [...] anemia type Expected: 09/11/2024, Expires: 12/11/2024 [facility] Comment on above: Expected: 09/11/2024, Expires: 5 Start: 08-14-2024 End: 11-13-2024 Bacteria identified in Urine by Culture [facility] Comment on above: Expected: 08/14/2024, Expires: Start: 08-14-2024 End: 11-13-2024 C reactive protein [Mass/volume] in Serum or Plasma [facility] Comment on above: Expected: 08/14/2024, Expires: Start: 08-14-2024 End: 11-13-2024 CBC W Ordered Manual Differential panel - Blood [facility] Comment on above: Expected: 08/14/2024, Expires: Start: 08-14-2024 End: 11-13-2024 Erythrocyte sedimentation rate [facility] Work Phone: Comment on above: Expected: 08/14/2024, Expires: Start: 08-14-2024 End: 11-13-2024 PROTEIN ELECT RND UR W/[facility] Comment on above: Expected: 08/14/2024, Expires: Start: 08-14-2024 End: 11-13-2024 PROTEIN ELECTROPHORESIS SERUM W/INTERP [facility] Comment on above: Expected: 08/14/2024, Expires: Start: 08-14-2024 End: 11-13-2024 URINALYSIS, DIPSTICK ONLY [facility] Comment on above: Expected: 08/14/2024, Expires: Start: 08-14-2024 End: 08-14-2024 Patient encounter procedure 08/14/2024 10:40 AM EDT Office Visit Family Medicine [id number] [place] [address], [place] [address] [place] [address] [place] [address] Elevated white count and dehydration/fatigue Family Medicine Comment on above: Elevated white count and dehydration/fat igue Start: 07-15-2024 Covid-19 Vaccine ( season) Covid-19 Vaccine ( season) [facility] Start: 07-15-2024 Covid-19 Vaccine ( season) Covid-19 Vaccine () [facility] Start: 07-15-2024 Influenza vaccination [facility] Start: 07-12-2024 End: 07-12-2024 Patient encounter procedure 07/12/2024 9:40 AM EDT Office Visit Family Medicine [id number] [place] [address], [place] [address] [place] [address] [place] [address] Follow Up Family Medicine Comment on above: Follow Up Start: 04-12-2024 End: 04-12-2024 Patient encounter procedure 04/12/2024 11:30 AM EDT Office Visit Rheumatology [address] [id number] [place] [address] [id number] HFU pseudogout Rheumatology Comment on above: HFU pseudogout Start: 03-21-2024 End: 03-21-2024 Patient encounter procedure 03/21/2024 10:45 AM EDT Office Visit [facility] Ophthalmology [address] [place] [address] Gertrudis Bill, DO [address] [address] Dilated Retinal Exam Ophthalmology Comment on above: Dilated Retinal Exam Start: 03-13-2024 End: 09-13-2024 Basic metabolic 2000 panel - Serum or Plasma BASIC METABOLIC PANEL Lab Routine Diabetes mellitus, non-insulin dependent (NIDDM or type II) (HCC) Hyperlipidemia associated with type 2 diabetes mellitus (HCC) (HCC) Essential hypertension Expected: 03/13/2024, Expires: 09/13/2024 [facility] Comment on above: Expected: 03/13/2024, Expires: Start: 03-13-2024 End: 09-13-2024 Hemoglobin A1c in Blood HEMOGLOBIN A1C Lab Routine Diabetes mellitus, non-insulin dependent (NIDDM or type II) (HCC) Expected: 03/13/2024, Expires: 09/13/2024 [facility] Work Phone: Comment on above: Expected: 03/13/2024, Expires: Start: 03-13-2024 End: 09-13-2024 LIPID PANEL, NONFASTING LIPID PANEL, NONFASTING Lab Routine Hyperlipidemia associated with type 2 diabetes mellitus (HCC) (HCC) Expected: 03/13/2024, Expires: 09/13/2024 [facility] Comment on above: Expected: 03/13/2024, Expires: Start: 03-13-2024 End: 09-13-2024 Microalbumin/Creatinine [Mass Ratio] in Urine ALBUMIN/CREATININE RATIO, URINE Lab Routine Diabetes mellitus, non-insulin dependent (NIDDM or type II) (HCC) Expected: 03/13/2024, Expires: 09/13/2024 [facility] Comment on above: Expected: 03/13/2024, Expires: Start: 11-14-2023 Advance Directive Discussion Advance Directive Discussion [facility] Start: 11-14-2023 Behavioral Health Screening Behavioral Health Screening [facility] Start: 11-14-2023 Depression Assessment Depression Assessment [facility] Start: 11-12-2023 Hemoglobin A1c measurement HbA1C [facility] Start: 11-12-2023 Hemoglobin A1c/Hemoglobin.total in Blood HBA1C [facility] Start: 10-23-2023 3 comp foot exam completed DIABETIC FOOT EXAM [facility] Start: 10-23-2023 Diabetic foot examination Diabetic Foot Exam [facility] Start: 10-21-2023 Hepatitis B screening URINE ALBUMIN:CREATININE RATIO [facility] Start: 10-21-2023 Hepatitis B surface antibody level LDL CHOLESTEROL [facility] Start: 09-07-2023 Hemoglobin A1c/Hemoglobin.total in Blood HBA1C [facility] Start: 07-15-2023 Covid-19 Vaccine () Covid-19 Vaccine () [facility] Start: 07-15-2023 Influenza vaccination [facility] Start: 06-17-2023 End: 08-17-2023 Basic metabolic 2000 panel - Serum or Plasma BASIC METABOLIC PNL Lab Routine Type 2 diabetes mellitus with stage 3 chronic kidney disease, without long-term current use of insulin, unspecified whether stage 3a or 3b CKD (HCC) Expected: 06/17/2023 (Approximate), Expires: 08/17/2023 [facility] Work Phone: Comment on above: Expected: 06/17/2023 (Approximate), Expi res: 08/17/2023 Start: 06-17-2023 End: 08-17-2023 Hemoglobin A1c in Blood HGB A1C Lab Routine Type 2 diabetes mellitus with stage 3 chronic kidney disease, without long-term current use of insulin, unspecified whether stage 3a or 3b CKD (HCC) Expected: 06/17/2023 (Approximate), Expires: 08/17/2023 [facility] Work Phone: Comment on above: Expected: 06/17/2023 (Approximate), Expi res: 08/17/2023 Start: 04-29-2023 End: 06-29-2023 Basic metabolic 2000 panel - Serum or Plasma BASIC METABOLIC PNL Lab Routine CKD stage 3 due to type 2 diabetes mellitus (HCC) Diabetes mellitus, non-insulin dependent (NIDDM or type II) (HCC) Expected: 04/29/2023 (Approximate), Expires: 06/29/2023 [facility] Work Phone: Comment on above: Expected: 04/29/2023 (Approximate), Expi res: 06/29/2023 Start: 04-21-2023 Hemoglobin A1c/Hemoglobin.total in Blood HBA1C [facility] Start: 03-23-2023 End: 05-23-2023 Basic metabolic 2000 panel - Serum or Plasma BASIC METABOLIC PNL Lab Routine Diabetes mellitus, non-insulin dependent (NIDDM or type II) (HCC) Expected: 03/23/2023, Expires: 05/23/2023 [facility] Work Phone: Comment on above: Expected: 03/23/2023, Expires: 3 Start: 03-23-2023 End: 05-23-2023 Hemoglobin A1c in Blood HGB A1C Lab Routine Diabetes mellitus, non-insulin dependent (NIDDM or type II) (HCC) Expected: 03/23/2023, Expires: 05/23/2023 [facility] Work Phone: Comment on above: Expected: 03/23/2023, Expires: 3 Start: 03-23-2023 End: 05-23-2023 SCHEDULE LAB TESTING SCHEDULE LAB TESTING Lab Routine Diabetes mellitus, non-insulin dependent (NIDDM or type II) (HCC) Expected: 03/23/2023, Expires: 05/23/2023 [facility] Work Phone: Comment on above: Expected: 03/23/2023, Expires: 3 Start: 11-14-2022 ADVANCE DIRECTIVE DISCUSSION ADVANCE DIRECTIVE DISCUSSION [facility] Start: 11-14-2022 DEPRESSION ASSESSMENT DEPRESSION ASSESSMENT [facility] Start: 10-27-2022 Hemoglobin A1c/Hemoglobin.total in Blood HBA1C [facility] Start: 10-15-2022 3 comp foot exam completed DIABETIC FOOT EXAM [facility] Start: 10-15-2022 SHINGRIX VACCINE (2 of 3) SHINGRIX VACCINE (2 of 3) [facility] Comment on above: Postponed from 03/19/2015 (Declined at t his time) Start: 10-15-2022 Urine microalbumin profile DTAP,TDAP,TD (1 - Tdap) [facility] Comment on above: Postponed from 1954 (Declined at t his time) Start: 10-12-2022 Hepatitis B screening URINE ALBUMIN:CREATININE RATIO [facility] Start: 10-12-2022 Hepatitis B surface antibody level LDL CHOLESTEROL [facility] Start: 10-08-2022 End: 12-08-2022 ALBUMIN/CREAT RATIO RND UR ALBUMIN/CREAT RATIO RND UR Lab Routine Diabetes mellitus, non-insulin dependent (NIDDM or type II) (HCC) Hypertensive kidney disease with stage 3b chronic kidney disease (HCC) Expected: 10/08/2022, Expires: 12/08/2022 [facility] Work Phone: Comment on above: Expected: 10/08/2022, Expires: 3 Start: 10-08-2022 End: 12-08-2022 Basic metabolic 2000 panel - Serum or Plasma BASIC METABOLIC PNL Lab Routine Diabetes mellitus, non-insulin dependent (NIDDM or type II) (HCC) CKD stage 3 due to type 2 diabetes mellitus (HCC) Essential hypertension Hypertensive kidney disease with stage 3b chronic kidney disease (HCC) Expected: 10/08/2022, Expires: 12/08/2022 [facility] Work Phone: Comment on above: Expected: 10/08/2022, Expires: 3 Start: 10-08-2022 End: 12-08-2022 Hemoglobin A1c in Blood HGB A1C Lab Routine Diabetes mellitus, non-insulin dependent (NIDDM or type II) (HCC) Expected: 10/08/2022, Expires: 12/08/2022 [facility] Work Phone: Comment on above: Expected: 10/08/2022, Expires: 3 Start: 10-08-2022 End: 12-08-2022 LIPID PANEL, NONFASTING LIPID PANEL, NONFASTING Lab Routine Diabetes mellitus, non-insulin dependent (NIDDM or type II) (HCC) Hyperlipidemia associated with type 2 diabetes mellitus (HCC) Expected: 10/08/2022, Expires: 12/08/2022 [facility] Work Phone: Comment on above: Expected: 10/08/2022, Expires: 3 Start: 09-24-2022 Hemoglobin A1c/Hemoglobin.total in Blood HBA1C [facility] Start: 07-26-2022 End: 09-25-2022 CBC panel - Blood by Automated count CBC Lab Routine Iron deficiency anemia, unspecified iron deficiency anemia type CKD stage 3 due to type 2 diabetes mellitus (HCC) Expected: 07/26/2022, Expires: 09/25/2022 [facility] Work Phone: Comment on above: Expected: 07/26/2022, Expires: 2 Start: 07-26-2022 End: 09-25-2022 Ferritin [Mass/volume] in Serum or Plasma FERRITIN BLD Lab Routine Iron deficiency anemia, unspecified iron deficiency anemia type Expected: 07/26/2022, Expires: 09/25/2022 [facility] Work Phone: Comment on above: Expected: 07/26/2022, Expires: 2 Start: 07-26-2022 End: 09-25-2022 Iron and Iron binding capacity panel - Serum or Plasma IRON + TIBC Lab Routine Iron deficiency anemia, unspecified iron deficiency anemia type Expected: 07/26/2022, Expires: 09/25/2022 [facility] Work Phone: Comment on above: Expected: 07/26/2022, Expires: 2 Start: 07-15-2022 Influenza vaccination [facility] Start: 04-26-2022 End: 06-26-2022 CBC panel - Blood by Automated count CBC Lab Routine Iron deficiency anemia, unspecified iron deficiency anemia type Expected: 04/26/2022, Expires: 06/26/2022 [facility] Work Phone: Comment on above: Expected: 04/26/2022, Expires: 2 Start: 04-26-2022 End: 06-26-2022 RETIC COUNT RETIC COUNT Lab Routine Iron deficiency anemia, unspecified iron deficiency anemia type Expected: 04/26/2022, Expires: 06/26/2022 [facility] Work Phone: Comment on above: Expected: 04/26/2022, Expires: 2 Start: 04-12-2022 End: 06-12-2022 Bacteria identified in Urine by Culture URINE CULTURE Microbiology Routine Acute cystitis without hematuria Expected: 04/12/2022, Expires: 06/12/2022 [facility] Work Phone: Comment on above: Expected: 04/12/2022, Expires: 2 Start: 04-12-2022 End: 06-12-2022 URINALYSIS, DIPSTICK ONLY URINALYSIS, DIPSTICK ONLY Lab Routine Acute cystitis without hematuria Expected: 04/12/2022, Expires: 06/12/2022 [facility] Work Phone: Comment on above: Expected: 04/12/2022, Expires: 2 Start: 04-11-2022 Hemoglobin A1c/Hemoglobin.total in Blood HBA1C [facility] Start: 11-14-2021 ADVANCE DIRECTIVE DISCUSSION ADVANCE DIRECTIVE DISCUSSION [facility] Start: 11-14-2021 DEPRESSION ASSESSMENT DEPRESSION ASSESSMENT [facility] Start: 12-07-2018 Glaucoma screening Dilated Retinal Exam [facility] Start: 12-07-2018 Hepatitis C antibody, confirmatory test DILATED RETINAL EXAM [facility] Start: 10-22-2016 PNEUMOCOCCAL: 65+ (2 - PPSV23 or PCV20) PNEUMOCOCCAL: 65+ (2 - PPSV23 or PCV20) [facility] Start: 03-19-2015 SHINGRIX VACCINE (2 of 3) SHINGRIX VACCINE (2 of 3) [facility] Start: 06-14-2013 Colonoscopy COLONOSCOPY [facility] Start: 06-14-2013 Screening for malignant neoplasm of colon Colonoscopy [facility] Start: 06-15-2012 COLORECTAL CANCER SCREENING COLORECTAL CANCER SCREENING [facility] Start: 06-15-2012 Screening for malignant neoplasm of colon Colorectal Cancer Screening [facility] Start: 2010 RSV Vaccine (1 - 1-dose 75+ series) RSV Vaccine (1 - 1-dose 75+ series) [facility] Start: 1995 Hepatitis B Vaccine (1 of 3 - Risk 3-dose series) Hepatitis B Vaccine (1 of 3 - Risk 3-dose series) [facility] Start: 1995 RSV Vaccine (1 - 1-dose 60+ series) RSV Vaccine (1 - 1-dose 60+ series) [facility] Start: 1980 COLOGUARD (FIT-DNA) COLOGUARD (FIT-DNA) [facility] Start: [address] COLONOGRAPHY [facility] Start: 1980 FECAL OCCULT BLOOD FECAL OCCULT BLOOD [facility] Start: 1980 Screening for malignant neoplasm of colon [facility] Start: 1980 SIGMOIDOSCOPY SIGMOIDOSCOPY [facility] Start: 1954 Urine microalbumin profile [facility] Start: 1953 Anxiety Screening Anxiety Screening [facility] Start: 1953 Depression Screening Depression Screening [facility] Start: 1940 COVID-19 VACCINE (#1) COVID-19 VACCINE (#1) [facility] Start: 1940 COVID-19 VACCINE (1) COVID-19 VACCINE (1) [facility] Start: 06-30-1936 COVID-19 VACCINE (#1) COVID-19 VACCINE (#1) [facility] COLOGUARD COLOGUARD Lab Ro utine Screening for colon cancer Ordered: 04/08/2022 [facility] Work Phone: Comment on above: Ordered: 04/08/2022 End: 12-01-2025 MR Ankle - right WO contrast MRI ANKLE WO IVCON RIGHT Radiology Routine Chronic pain of right ankle 1 Occurrences starting 11/01/2024 until 12/01/2025 [facility] Comment on above: 1 Occurrences starting 11/01/2024 until 12/01/2025 End: 09-17-2024 XR Ankle - right AP and Lateral and oblique [facility] Work Phone: Comment on above: 1 Occurrences starting 09/17/2024 until 09/17/2024 End: 12-01-2025 XR Ankle - right AP and Lateral and oblique XR ANKLE GENERAL 3V AP/LAT/OBL RIGHT Radiology Routine Right ankle swelling 1 Occurrences starting 11/01/2024 until 12/01/2025 [facility] Work Phone: Comment on above: 1 Occurrences starting 11/01/2024 until 12/01/2025 XR Ankle - right AP and Lateral and oblique XR ANKLE GENERAL 3V AP/LAT/OBL RIGHT Radiology Routine Right ankle swelling 11/01/2024 2:21 PM EST [facility] XR Calcaneus - right 2 Views XR CALCANEUS 2V AXIAL/LAT RIGHT Radiology Routine Pain in joint involving right ankle and foot 09/19/2024 2:13 PM [facility] XR Foot - right AP a nd Lateral and oblique XR FOOT GENERAL 3V AP/LAT/OBL RIGHT Radiology Routine Pain in joint involving right ankle and foot 09/19/2024 2:13 PM [facility] Work Phone: End: 12-01-2025 XR Foot - right AP and Lateral and oblique XR FOOT GENERAL 3V AP/LAT/OBL RIGHT Radiology Routine Right ankle swelling 1 Occurrences starting 11/01/2024 until 12/01/2025 [facility] Comment on above: 1 Occurrences starting 11/01/2024 until 12/01/2025 XR Foot - right AP a nd Lateral and oblique XR FOOT GENERAL 3V AP/LAT/OBL RIGHT Radiology Routine Right ankle swelling 11/01/2024 2:21 PM [facility] Immunizations Immunization Date Immunization Notes Care Provider [facility] 12-07-2017 influenza virus vacc ine, unspecified formulation Migdalia Cramer MD Work Phone: [facility] 12-01-2016 influenza, high dose seasonal, preservative-free Migdalia Cramer MD Work Phone: [facility] 10-22-2015 pneumococcal conjuga te vaccine, 13 valent Migdalia Cramer MD Work Phone: [facility] Work Phone: 08-15-2015 influenza, high dose seasonal, preservative-free Migdalia Cramer MD Work Phone: [facility] 01-22-2015 zoster vaccine, live Migdalia alfonso MD Work Phone: [facility] 09-18-2014 influenza, seasonal, injectable Migdalia Cramer MD Work Phone: [facility] Work Phone: 09-04-2013 influenza virus vacc ine, unspecified formulation Migdalia Cramer MD Work Phone: [facility] 08-23-2012 influenza virus vacc ine, unspecified formulation Migdalia Cramer MD Work Phone: [facility] Work Phone: 11-22-2011 pneumococcal polysaccharide vaccine, 23 valent Migdalia Cramer MD Work Phone: [facility] 09-15-2011 influenza virus vacc ine, unspecified formulation Migdalia Cramer MD Work Phone: [facility] 09-03-2010 influenza virus vacc ine, unspecified formulation Migdalia Cramer MD Work Phone: [facility] Payers Date Payer Category Payer Self-pay 2020 Medicare UHC MEDICARE UHC MEDICARE ADVANTAGE PPO [id number] 2020-Present [phone] [address] [address] [place] [address] PPO [id number] 2020 Medicare UHC MEDICARE UHC MEDICARE ADVANTAGE PPO [id number] 2020-Present [phone] [address] [address] [place] [address] PPO [id number] 2020 Medicare (Managed Care) [facility] MEDI CARE ADVANTAGE PPO [id number] 2020 Medicare [id number] Unknown [id number] Unknown [id number] Unknown [id number] Unknown [id number] Unknown [id number] Unknown [id number] Unknown [id number] Unknown [id number] Unknown [id number] Unknown [id number] Unknown [id number] Unknown [id number] Social History Date Type Detail Facility Start: 09-16-2011 End: 10-23-2022 Tobacco smoking status NHIS Never smoked tobacco [facility] Start: 10-15-2021 End: 02-13-2025 Alcohol intake Current non-drinker of alcohol (finding) [facility] Start: 09-10-2020 End: 03-08-2023 History SDOH Alcohol Frequency 1 [facility] Start: 09-10-2020 End: 09-16-2020 History SDOH Social Connections Phone 5 [facility] Start: 09-10-2020 End: 09-16-2020 History SDOH Social Connections Get Together 2 [facility] Start: 09-10-2020 History SDOH Social Connections Mandaen 3 [facility] Start: 09-10-2020 History SDOH Social Connections Living 4 [facility] Start: 1935 Sex Assigned At Not on file C [facility] Start: 11-09-2021 End: 12-09-2021 Exposure to SARS-CoV-2 (event) Unable to assess [facility] Start: 06-14-2021 End: 05-08-2022 Exposure to SARS-CoV-2 (event) Not sure [facility] Start: 09-16-2011 End: 10-23-2022 Tobacco use and exposure Smokeless tobacco non-user [facility] Start: 09-09-2020 End: 03-17-2023 History of Social function [place] [facility] Start: 09-09-2020 End: 03-17-2023 Social connection and isolation panel [facility] Do you belong to any clubs or organizations such as mu-ism groups, unions, fraternal or athletic groups, or school groups? Yes [facility] Are you now , , , , never or living with a partner? [facility] How often to you hav e a drink containing alcohol? Never [facility] Start: 10-15-2012 Average Number of Drinks Not on file [facility] Work Phone: Do you feel stress - tense, restless, nervous, or anxious, or unable to sleep at night because your mind is troubled all the time - these days [OSQ] Only a little [facility] (I/We) worried wheth er (my/our) food would run out before (I/we) got money to buy more. Never true [facility] Work Phone: In the past 12 month s, was there a time when you were not able to pay the mortgage or rent on time? No [facility] ever smoked [facility] Work Phone: Start: 02-14-2025 End: 02-21-2025 Sex Female (finding) [facility] Start: 1935 Sex Assigned At Female [facility] Medical Equipment Procedure Code Equipment Code Equipment Origin al Text Equipment Identifier Dates [id number], [id number], [id number] Start: 2019 End: 08-21-2024 Comment on above: USE DIRECTED TO T EST BLOOD SUGARS 3 TIMES A DAY Test blood sugar onc e daily Functional Status Date Assessment Result Facility 12-12-2024 Are you deaf, or do you have serious difficulty hearing No 12/12/2024 1:12 PM Petrona Arreguin RN No [facility] 12-12-2024 Are you blind, or do you have serious difficulty seeing, even when wearing glasses No 12/12/2024 1:12 PM Petrona Arreguin RN No [facility] 12-12-2024 Do you have serious difficulty walking or climbing stairs No 12/12/2024 1:12 PM Petrona Arreguin RN No [facility] 12-12-2024 Do you have difficul ty dressing or bathing No 12/12/2024 1:12 PM Petrona Arreguin RN No [facility] 12-12-2024 Because of a physica l, mental, or emotional condition, do you have difficulty doing errands alone such as visiting a physician's office or shopping No 12/12/2024 1:12 PM Petrona Arreguin RN No [facility] 03-09-2023 Are you deaf, or do you have serious difficulty hearing Yes 03/09/2023 4:15 PM Shannon Kraus RN Yes [facility] 03-09-2023 Are you blind, or do you have serious difficulty seeing, even when wearing glasses No 03/09/2023 4:15 PM Shannon Kraus RN No [facility] 03-09-2023 Do you have serious difficulty walking or climbing stairs Yes 03/09/2023 4:15 PM Shannon Kraus RN Yes [facility] 03-09-2023 Do you have difficul ty dressing or bathing Yes 03/09/2023 4:15 PM Shannon Kraus RN Yes [facility] 04-26-2023 Because of a physica l, mental, or emotional condition, do you have difficulty doing errands alone such as visiting a physician's office or shopping Yes 03/09/2023 4:15 PM EDT Shannon Stringer, LIT Yes [facility] Mental Status Date Assessment Result Facility 12-12-2024 Because of a physica l, mental, or emotional condition, do you have serious difficulty concentrating, remembering, or making decisions No 12/12/2024 1:12 PM Petrona Arreguin RN No [facility] 03-09-2023 Because of a physica l, mental, or emotional condition, do you have serious difficulty concentrating, remembering, or making decisions Yes 03/09/2023 4:15 PM EDT Shannon Stringer, LIT Yes [facility] Clinical Notes 05-25-2017 to 05-28-2025 Telephone Encounter - Lidia Carbajal LPN - 05/28/2025 2:07 PM EDTTelephone Encounter - Lidia Carbajal LPN - 05/28/2025 2:07 PM Lien Gilman DPM - 02/14/2025 9:04 AM EDTPatient Instructions Note Date & Type Note Facility 05-28-2025 Telephone encounter Note Received results of labs done on 05/27/2025 from [facility] (abnormal results in bold): CRP <3.00 0.0-3.0 sed rate 14 0-30 Report sent for scanning. [facility] 05-28-2025 Miscellaneous Notes Received results of labs done on 05/27/2025 from [facility] (abnormal results in bold): CRP <3.00 0.0-3.0 sed rate 14 0-30 Report sent for scanning. documented in this encounter [facility] 05-01-2025 Telephone encounter Note Received results of labs done on [facility] from 04/29/25 (abnormal results in bold): CRP 21.0 sed rate 32 Report sent for scanning. [facility] 05-01-2025 Miscellaneous Notes Received results of labs done on [facility] from 04/29/25 (abnormal results in bold): CRP 21.0 sed rate 32 Report sent for scanning. documented in this encounter [facility] 02-14-2025 Note [facility] 02-14-2025 History of Present illness Narrative Date of Visit: 02/13/2025 CHIEF COMPLAINT: Right ankle wound and RT heel pressure check SP OR right ankle incision and drainage and ulcer debridement 11/27/24 DM II, HgbA1c 10.4 (11/21/24) ADM 11/21/24-12/12/24 HISTORY OF PRESENT ILLNESS: Patient presents to the wound center for follow up since admission to [facility] 11/21/24 where she underwent RT ankle I&D [...] PT, but mostly non ambulatory currently at [facility]. Denies N/V/F/C/D/SOB/CP/LP HX S/p RT ankle [...] pad every other day. She is at [facility] can WB AT BL continue offloading right [...] accompanied by family members Home Care Company/Nursing Facility:[facility] Consent captured for debridement per Lien Bang DPM and alex until July 2025 Anticoagulant Therapy: N/A Living Situation (ie... 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 Bang in 2 weeks - Continue [...] [facility] documented in this encounter [facility] 02-13-2025 Instructions Margie Steiner RN - 02/13/2025 1:29 PM EDT WOUND CARE INSTRUCTIONS- Yusuf Colleenariel [facility] - Wound Care Instructions: - Gather [...] for 1 additional month then stop Apply tubi-drafter heating and ventilating D to bilateral lower legs Apply a Single layer tubi-drafter heating and ventilating compression stocking to the right foot base [...] following changes to the Wound Center at [phone] or go to the Emergency Department: Fever or chills Increased drainage Green or yellow drainage Foul odor Increased pain Hardness around the wound Redness, warmth or swelling of the surrounding tissue Color change to the wound When contacting the wound center at the ([phone]): Leave a message that includes your full [...] emergency department. PLAN/ORDERS: - Return to the [facility] for a follow-up with bag liner Dr. Bang in 2 weeks - Continue [...] Lien Bang DPM/osvaldo/patrick documented in this encounter [facility] 02-13-2025 Note [facility] 02-11-2025 Telephone encounter Note Received results of labs done on 02/04/2025 from [facility] (abnormal results in bold): sed rate 23 0-30 Report sent for scanning. [facility] 02-11-2025 Miscellaneous Notes Received results of labs done on 02/04/2025 from [facility] (abnormal results in bold): sed rate 23 0-30 Report sent for scanning. documented in this encounter [facility] 01-18-2025 Telephone encounter Note Noted Willie Kaur APRN.CNP [facility] 01-18-2025 Miscellaneous Notes Noted Willie Kaur APRN.CNP Contacted [facility] spoke with Gabbie (nurse), I asked to clarify patient's medication or send updated med list. She states" We don't need anything from you She's living here permanently & uses primary care in-house doc." No further information was given or obtained. Chart indicates that she is at [facility], phone number on a fax recently received indicates the SNF is [phone]. Please call the facility that she is at to verify which cholesterol medicine she is taking since caregiver Demetria is not currently in chare of medication administration and can't clarify pravachol vs lipitor. Thank you. Willie Kaur APRN.CNP/ Relative Demetria states the patient is in a alf now, so she needs someone to reach out to her because she states they are giving her different medications at the alf. Please reach out to her at [phone] Attempted to contact relative Demetria with no [...] Hernandez MA documented in this encounter [facility] 01-18-2025 Telephone encounter Note Contacted [facility] spoke with Gabbie (nurse), I asked to clarify patient's medication or send updated med list. She states" We don't need anything from you She's living here permanently & uses primary care in-house doc." No further information was given or obtained. [facility] 01-18-2025 Telephone encounter Note Chart indicates that she is at [facility], phone number on a fax recently received indicates the SNF is [phone]. Please call the facility that she is at to verify which cholesterol medicine she is taking since caregiver Demetria is not currently in chare of medication administration and can't clarify pravachol vs lipitor. Thank you. Willie Kaur APRN.FARM MARKETER/ [facility] 01-17-2025 Telephone encounter Note Relative Demetria states the patient is in a alf now, so she needs someone to reach out to her because she states they are giving her different medications at the alf. Please reach out to her at [phone] [facility] 01-17-2025 Telephone encounter Note Attempted to contact celeste Augustin with no success. Left VM requesting call back. If relative returns call, please clarify prescription. [facility] 01-17-2025 Note [facility] 01-17-2025 History of Present illness Narrative Date of Visit: 01/16/2025 CHIEF COMPLAINT: Right ankle wound and RT heel pressure check SP OR right ankle incision and drainage and ulcer debridement 11/27/24 DM II, HgbA1c 10.4 (11/21/24) ADM 11/21/24-12/12/24 HISTORY OF PRESENT ILLNESS: Patient presents to the wound center for follow up since admission to [facility] 11/21/24 where she underwent RT ankle I&D [...] PT, but mostly non ambulatory currently at [facility]. Denies N/V/F/C/D/SOB/CP/LP HX S/p RT ankle [...] negative pressure. To continue wound vac at [place]. Removed vac dressing and debrided wound today. [...] tubigrip every other day. She is at [facility] can WB AT BL continue offloading right heel, looks good today [...] accompanied by family members Home Care Company/Nursing Facility:[facility] Consent captured for debridement per Lien Bang DPM and good until July 2025 Anticoagulant Therapy: N/A Living Situation (ie... 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 DME: Facility SPECIAL NEEDS: Coordination of care N/A Emotional support N/A OR set-up N/A Commis Chef N/A Incontinence needs N/A DISCHARGED in stable condition to: Arrived via wheelchair accompanied by family & aide PLAN/ORDERS: - Return to the [facility] for a follow-up with bag liner Dr. Bang in 2 weeks - Follow-up [...] Nanette Welch RN/akiko documented in this encounter [facility] 01-17-2025 Telephone encounter Note Images from the original note were not included. Pended med is Pravastatin (Pravachol). Epic med list indicates atorvastatin (Lipitor). Please clarify which patient is taking. Willie Kaur APRN.DRAKE [facility] 01-16-2025 Telephone encounter Note Patient has [...] review and advise. Jame Hernandez MA [facility] 01-16-2025 Instructions Nanette Welch RN - 01/16/2025 1:12 PM EST WOUND CARE INSTRUCTIONS- Yusufcece Medina Wound location: Right Ankle [facility] HOME: - Please re-apply wound VAC [...] the wound base. - Cover with 4x4 Merom SAP bordered foam or equivalent dressing. - Change your dressing every other day or as needed to maintain a clean, dry and intact dressing. Apply a Single layer tubi-drafter heating and ventilating compression stocking to the right foot base [...] following changes to the Wound Center at [phone] or go to the Emergency Department: Fever or chills Increased drainage Green or yellow drainage Foul odor Increased pain Hardness around the wound Redness, warmth or swelling of the surrounding tissue Color change to the wound When contacting the wound center at the ([phone]): Leave a message that includes your full [...] emergency department. PLAN/ORDERS: - Return to the [facility] for a follow-up with bag liner Dr. Bang in 2 weeks - Follow-up [...] DPM /mh/fm documented in this encounter [facility] 01-16-2025 Note [facility] 01-08-2025 Telephone encounter Note Per Alon-- Labs rev [place] stop date today PICC removal in the [...] picc line after the last dose. [facility] 01-08-2025 Miscellaneous Notes Per Alon-- Labs rev [place] stop date today PICC removal in the [...] has an appt today with Alon at [facility]. She's currently on Cefazolin 2g iv [...] differential wasn't done on the cbc The REGISTRATION SPECIALIST has added it on moving forward The results were attached to the M drive Spoke to the REGISTRATION SPECIALISTnaveen requested Lilo from [facility] called [phone] to schedule the follow up, I gave her the [facility] number and 01/08 for the schedule date. Delfina Elias Yusuf is still inpt at [facility] She will be d/c to [facility] [phone] Summary: COPAT ACTION-FOR IDC USE ONLY Images from the original note were not included. 11/28/2024 8:48 PM Pierce Chi [place] PROVIDER ADULT [id number] Patient Info Patient Name Sex Yusuf Medina ([id number]) Female 1935 Encounter Notes Progress Notes by Pierce Chi MD, encounter date 11/28/2024: Progress Notes [facility] Outpatient Parenteral Antimicrobial Therapy (OPAT) Start Form Patient Info Patient MRN Patient Name Address Date of [id number] Yusuf Medina [address] [facility] [id number] 1935 Start Date 11/28/2024 Physician Group [facility] [...] Monitoring Treatment Course Pierce Chi MD Address [address] [place] [address], [place] [address] Prescribing Provider's signature - electronically signed by Pierce Chi MD on 11/28/24 at 8:50 PM documented in this encounter [facility] 01-08-2025 Note [facility] 01-08-2025 History of Present illness Narrative Images [...] or type II) CATIE PLAN: Labs rev [place] stop date today PICC removal in the [...] accompanied by family members Home Care Company/Nursing Facility:[facility] Consent captured for debridement per Lien Bang DPM and good until December 2024 Anticoagulant Therapy: N/A Living Situation (ie... 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 Bang on January 16 at 1:00 [...] - Please follow-up with your PCP or correctional security officer about your elevated blood pressure readings. - [...] to ANY of questions 5-9, consult the [facility] Cinthia Dao RN/TC documented in this encounter [facility] 01-08-2025 Instructions Cinthia Dao RN - 01/08/2025 12:51 PM EST WOUND CARE INSTRUCTIONS- Yusuf Medina Wound location: Right Ankle [facility] HOME: - Please re-apply wound VAC today [...] following changes to the Wound Center at [phone] or go to the Emergency Department: Fever or chills Increased drainage Green or yellow drainage Foul odor Increased pain Hardness around the wound Redness, warmth or swelling of the surrounding tissue Color change to the wound When contacting the wound center at the ([phone]): Leave a message that includes your full [...] emergency department. PLAN/ORDERS: - Return to the [facility] for a follow-up with bag liner Dr. Bang on January 16 at 1:00 [...] - Please follow-up with your PCP or correctional security officer about your elevated blood pressure readings. - If you have any questions or concerns that cannot be answered with the following information, please follow the instructions listed above on how to contact the wound center. Pierce Chi MD/ALANA/TC documented in this encounter [facility] 01-08-2025 Note [facility] 01-08-2025 Telephone encounter Note Yusuf has an appt today with Alon at [facility]. She's currently on Cefazolin 2g iv q8 with a stop date for today. [facility] 01-07-2025 Telephone encounter Note Jan 07 labs reviewed, no changes The creat was never done The results were attached to the M drive [facility] 01-04-2025 Telephone encounter Note Received record release from [facility]. Faxed to number provided on form, confirmation fax received. [facility] 01-04-2025 Miscellaneous Notes Received record release from [facility]. Faxed to number provided on form, confirmation fax received. The initial note indicates that a "retail account representative" is calling and gave return phone number [phone]. I called this number and phone rang and rang numerous times. No voice mail. I can print of POA, stamp and fax since this is a facility to facility request. Given to nursing. If the "retail account representative" needs anything else and calls back, Please ask for name and direct line so that return call can be made. Thank you. Willie Kaur APRN.DRAKE Spoke with a unit secretary at [facility], he took the info again to get us a signed records release faxed to the office. Please watch for fax Please advise [facility] that if patient signs record release, they can get any records they need from [facility] medical records. Or family can sign record request at alf and alf can fax Family Medicine the records request and I can send what I can. Our fax is [phone]. Willie Kaur APRN.DRAKE Records release was not signed. Please review and advice. Received call from [facility]. The retail account representative has appointment with patient's sons this afternoon at 2 pm and is requesting Advanced Directive/POA paperwork that was scanned in on 12/31. Advised to send records request, but she is concerned about not having this paperwork by 2 pm meeting. Fastener Sewing Machine Operator can be reached at [phone]. Fax number given for records request as well. documented in this encounter [facility] 01-04-2025 Telephone encounter Note The initial note indicates that a "retail account representative" is calling and gave return phone number [phone]. I called this number and phone rang and rang numerous times. No voice mail. I can print of POA, stamp and fax since this is a facility to facility request. Given to nursing. If the "retail account representative" needs anything else and calls back, Please ask for name and direct line so that return call can be made. Thank you. iWllie Kaur APRN.FARM MARKETER [facility] 01-04-2025 Telephone encounter Note Spoke with a unit secretary at [facility], he took the info again to get us a signed records release faxed to the office. Please watch for fax [facility] 01-04-2025 Telephone encounter Note Please advise [facility] that if patient signs record release, they can get any records they need from [facility] medical records. Or family can sign record request at alf and alf can fax Family Medicine the records request and I can send what I can. Our fax is [phone]. Willie Kaur APRN.FARM MARKETER [facility] 01-04-2025 Note HNO ID: [id number] Author: TYESHA SINGLETON MD Service: ? Author [...] with dramatic improvement Currently she is in [place] and here with AVELINA and nurse aid who gives the history Currently she is pain free Also spoke with her nurse at [place] who states patient does nto complain of pain, pretty sedentary. No specific complaints at [place] per nurse Currently doing well, no pain at present Family states after debridement of rt ankle- patient feels weak and does not want to walk around Was living alone until 2 months ago and now at [place]. Prior to debridement , patient was not [...] L REMV CATARACT EXTRACAP,INSERT LENS Bilateral 2020 [facility] predniSONE (DELTASONE) 5 mg tablet Take [...] Sister None B (more content not included)... [facility] 01-04-2025 History of Present illness Narrative [...] with dramatic improvement Currently she is in [place] and here with AVELINA and nurse aid who gives the history Currently she is pain free Also spoke with her nurse at [place] who states patient does nto complain of pain, pretty sedentary. No specific complaints at [place] per nurse Currently doing well, no pain at present Family states after debridement of rt ankle- patient feels weak and does not want to walk around Was living alone until 2 months ago and now at [place]. Prior to debridement , patient was not [...] L REMV CATARACT EXTRACAP,INSERT LENS Bilateral 2020 [facility] predniSONE (DELTASONE) 5 mg tablet Take [...] every day prn -written instructions given to [place] as well as verbal instructions to family and nurse who is taking care of her at [place] 2. Rt ankle cellulitis and osteomyelitis -currently [...] Glands: No documented in this encounter [facility] 01-03-2025 Telephone encounter Note Records release was not signed. Please review and advice. [facility] 01-03-2025 Telephone encounter Note Received call from [facility]. The retail account representative has appointment with patient's sons this afternoon at 2 pm and is requesting Advanced Directive/POA paperwork that was scanned in on 12/31. Advised to send records request, but she is concerned about not having this paperwork by 2 pm meeting. Fastener Sewing Machine Operator can be reached at [phone]. Fax number given for records request as well. [facility] 01-02-2025 Telephone encounter Note SOCIAL WORK Date of Service: Thursday January 02, 2025 [facility] (LYRIC) Aditi Lopez attempted to contact Yusuf Medina by phone using peoplesoft consultant services to complete the distress assessment. Yusuf has been diagnosed with Normocytic anemia. She flagged for moderate depression on 12-31-24. 08/14/2018 11/21/2024 2024 PHQ-9 Score 9 13 12 LYRIC spoke with Yusuf's family member Mercedes. She advised that Yusuf is in a shelter facility. Mercedes advised that she completed the questionnaire without the patient. She also noted that Yusuf will most likely not understand the Qatari peoplesoft consultant because she speaks a different dialect. At this time, social work service is declined/deferred based on: she pt is at a SNF and family member completed the questionnaire. Please re-consult social work if any other psychosocial needs arise. Unable To Reach Patient PLAN: Follow up on an as needed basis ALEJANDRO Encarnacion [facility] Work Phone: 01-02-2025 Miscellaneous Notes SOCIAL WORK Date of Service: Thursday January 02, 2025 [facility] (SW) Aditi Lopez attempted to contact Yusuf Medina by phone using peoplesoft consultant services to complete the distress assessment. Yusuf has been diagnosed with Normocytic anemia. She flagged for moderate depression on 12-31-24. 08/14/2018 11/21/2024 2024 PHQ-9 Score 9 13 12 SW spoke with Yusuf's family member Mercedes. She advised that Yusuf is in a shelter facility. Mercedes advised that she completed the questionnaire without the patient. She also noted that Yusuf will most likely not understand the Qatari peoplesoft consultant because she speaks a different dialect. At this time, social work service is declined/deferred based on: she pt is at a SNF and family member completed the questionnaire. Please re-consult social work if any other psychosocial needs arise. Unable To Reach Patient PLAN: Follow up on an as needed basis ALEJANDRO Encarnacion documented in this encounter [facility] 01-02-2025 Instructions Grupo Mednez MD - 01/02/2025 9:19 AM EST Hemoglobin was low at 7.8 Obtaining repeat lab to determine if blood transfusion needed and if needs nutrient support for anemia Recommend repeating blood counts once weekly for next 6 weeks starting next week Please schedule follow-up with Dr. Mendez in 7 weeks For scheduling questions, please call [phone] (tests and appointments). Ask for the oncology rehabilitation aide/scheduler. For symptom management or care coordination questions, please call Renetta at [phone] or use my chart to reach us. After hours with medical questions, please call the doctor on-call at [phone]. Thank you, Grupo Mendez MD documented in this encounter [facility] 01-02-2025 Note HNO ID: [id number] Author: GRUPO MENDEZ MD Service: ? Author [...] L REMV CATARACT EXTRACAP,INSERT LENS Bilateral 2020 [facility] FAMILY HISTORY Problem Relation Age of [...] (3 mL) I (more content not included)... [facility] 01-02-2025 History of Present illness Narrative Referring physician: Dr. Migdalia Cramer Presenting complaint: Patient Yusuf Medina returns for follow-up on leukocytosis, anemia. ASSESSMENT: (D71.748) Leukocytosis, unspecified type (primary encounter diagnosis) Comment: [...] L REMV CATARACT EXTRACAP,INSERT LENS Bilateral 2020 [facility] FAMILY HISTORY Problem Relation Age of [...] Range Status 01/02/2025 5.9 % Final Abs [place] Date Value Ref Range Status 01/02/2025 0.61 [...] encounter, 01/02/2025) documented in this encounter [facility] 2024 Telephone encounter Note Dec 31 labs reviewed, no changes The results were attached to the M drive [facility] 12-27-2024 Note [facility] 12-27-2024 History of Present illness Narrative Date of Visit: 12/26/2024 CHIEF COMPLAINT: Right ankle wound and NEW RT heel pressure ulcer OR right ankle incision and drainage and ulcer debridement 11/27/24 DM II, HgbA1c 10.4 (11/21/24) ADM 11/21/24-12/12/24 HISTORY OF PRESENT ILLNESS: Patient presents to the wound center for first follow up since admission to [facility] 11/21/24 where she underwent RT ankle I&D [...] unsuccessful, became inflamed and infected. Patient arrived via:[facility]Nursing Facility:[facility] SNF rehab until 01/08 for IV abx Consent captured for debridement per Lien Bang DPM and good until December 2024. Special Instructions (for example, patient stands at the bedside for exam/dressing): Anticoagulant Therapy:n/a Living Situation (ie... 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 Provider seeing patient:Lien Bang DPM __ [...] order date DME: [employer] , PH: [phone] SPECIAL NEEDS: Coordination of care N/A Emotional support N/A OR set-up N/A Commis Chef N/A Incontinence needs N/A DISCHARGED in stable [...] to ANY of questions 5-9, consult the [facility] Sravanthi Hollis RN/TC documented in this encounter [facility] 12-26-2024 Telephone encounter Note Noted Willie Kaur APRN.CNP [facility] 12-26-2024 Miscellaneous Notes Noted Willie Kaur [...] caregiver demetria tapia calling to have her Cloud[employer] message she sent below addressed. Yusuf Robles's sons and are in town to make an assessment whether she is able to go home from rehab. Can you talk with them to help with their decision? Please call Nathaniel Medina at [phone]. They are here till Tuesday 12 noon. Thank you. documented in this encounter [facility] 12-26-2024 Telephone encounter Note Contacted son [...] POA to act on pt's behalf [facility] 12-26-2024 Telephone encounter Note Dec 24 labs reviewed, no changes The results were attached to the M drive [facility] 12-26-2024 Telephone encounter Note Addressed in other encounter. Willie Kaur APRN.CNP [facility] 12-26-2024 Miscellaneous Notes Addressed in other encounter. Willie Kaur APRN.CNP documented in this encounter [facility] 12-26-2024 Instructions Sravanthi Hollis RN - 12/26/2024 1:09 PM EST WOUND CARE INSTRUCTIONS- Yusuf Medina Wound location: Right ankle [facility] -PLEASE CONTINUE WOUND VAC PREVIOUS [...] following changes to the Wound Center at [phone] or go to the Emergency Department: Fever or chills Increased drainage Green or yellow drainage Foul odor Increased pain Hardness around the wound Redness, warmth or swelling of the surrounding tissue Color change to the wound When contacting the wound center at the ([phone]): Leave a message that includes your full [...] to be scheduled through Central Scheduling. Call [phone].(If applicable) Please be aware that the Covid19 exposure questions will be asked as you enter the hospital and as you arrive to each area. Thank you for your patience and understanding as we attempt to protect our patients during this difficult time. Lien Bang DPM/fhm/tc documented in this encounter [facility] 12-26-2024 Note [facility] 12-26-2024 Telephone encounter Note I wish I [...] safety for discharge. Willie Kaur APRN.DRAKE [facility] 12-26-2024 Telephone encounter Note Spoke to the nurse, naveen Cartwright [facility] 12-26-2024 Telephone encounter Note Patients caregiver demetria tapia calling to have her Cloud[employer] message she sent below addressed. Travis, Yusuf's sons and are in town to make an assessment whether she is able to go home from rehab. Can you talk with them to help with their decision? Please call Nathaniel Medina at [phone]. They are here till Tuesday 12 noon. Thank you. [facility] Work Phone: 12-25-2024 Telephone encounter Note The following approved medication requests have been transmitted electronically. Requested Prescriptions Signed Prescriptions Disp Refills amLODIPine (NORVASC) 5 mg tablet 90 tablet 3 Sig: TAKE 1 TABLET BY MOUTH ONCE DAILY Authorizing Provider: WILLIE KAUR APRN.FARM MARKETER [facility] 12-25-2024 Miscellaneous Notes The following approved medication requests have been transmitted electronically. Requested Prescriptions Signed Prescriptions Disp Refills amLODIPine (NORVASC) 5 mg tablet 90 tablet 3 Sig: TAKE 1 TABLET BY MOUTH ONCE DAILY Authorizing Provider: WILLIE KAUR APRN.FARM MARKETER Patient has been identified by name and [...] Phan LPN documented in this encounter [facility] 12-25-2024 Telephone encounter Note Patient has [...] Please review and advise. Aditi Phan LPN [facility] 12-20-2024 Telephone encounter Note Dec 17 labs wnl The differential wasn't done on the cbc The REGISTRATION SPECIALIST has added it on moving forward The results were attached to the M drive [facility] 12-20-2024 Telephone encounter Note Spoke to the REGISTRATION SPECIALIST, labs requested [facility] 12-13-2024 Telephone encounter Note Lilo from [facility] called [phone] to schedule the follow up, I gave her the [facility] number and 01/08 for the schedule date. Delfina Elias [facility] 12-11-2024 Note [facility] 12-10-2024 Telephone encounter Note Yusuf is still inpt at [facility] She will be d/c to [facility] [phone] [facility] 12-10-2024 Note [facility] 12-10-2024 Note [facility] 12-09-2024 Note [facility] 12-09-2024 Note [facility] 12-08-2024 Note [facility] 12-07-2024 Note [facility] 12-07-2024 Note [facility] 12-06-2024 Note [facility] 12-05-2024 Note [facility] 12-04-2024 Note [facility] 12-03-2024 Note [facility] 12-02-2024 Note [facility] 12-01-2024 Note [facility] 12-01-2024 Note [facility] 12-01-2024 Note [facility] 11-30-2024 Note [facility] 11-29-2024 Note [facility] 11-29-2024 Telephone encounter Note Summary: COPAT ACTION-FOR IDC USE ONLY Images from the original note were not included. 11/28/2024 8:48 PM Pierce Chi LA PROVIDER ADULT [id number] Patient Info Patient Name Sex Yusfu Medina ([id number]) Female 1935 Encounter Notes Progress Notes by Pierce Chi MD, encounter date 11/28/2024: Progress Notes [facility] Outpatient Parenteral Antimicrobial Therapy (OPAT) Start Form Patient Info Patient MRN Patient Name Address Date of [id number] Yusuf Medina [address] [facility] [id number] 1935 Start Date 11/28/2024 [facility]ician [facility] [...] Monitoring Treatment Course Pierce Chi MD Address [address] [place], [place] [id number] Prescribing Provider's signature - electronically signed by Pierce Chi MD on 11/28/24 at 8:50 PM [facility] 11-29-2024 Note [facility] 11-28-2024 Note [facility] 11-28-2024 History of Present illness Narrative Images from the original note were not included. [facility] Outpatient Parenteral Antimicrobial Therapy (OPAT) Start Form Patient Info Patient MRN Patient Name Address Date of [id number] Yusuf Medina [address] [id number] 1935 Start Date 11/28/2024 [facility]ician [facility] [...] Monitoring Treatment Course Pierce Chi MD Address [address] [place], [place] [id number] Prescribing Provider's signature - electronically signed by Pierce Chi MD on 11/28/24 at 8:50 PM documented in this encounter [facility] 11-28-2024 Note [facility] 11-28-2024 Note [facility] 11-27-2024 Telephone encounter Note The following approved medication requests have been transmitted electronically. Requested Prescriptions Signed Prescriptions Disp Refills metFORMIN (GLUCOPHAGE) 850 mg tablet 180 tablet 3 Sig: TAKE 1 TABLET BY MOUTH TWICE DAILY WITH MEALS Authorizing Provider: WILLIE KAUR APRN.CNP [facility] 11-27-2024 Miscellaneous Notes The following approved [...] Tucker MA documented in this encounter [facility] 11-27-2024 Note [facility] 11-27-2024 Telephone encounter Note Patient has been [...] review and advise. Martina Tucker MA [facility] 11-26-[address] Mendez reviewed labs from [facility]. Dr. Mendez recommended for patient to be seen around mid Dec 2024 as hem/onc follow-up. Grupo Mendez MD November 26, 2024 5:33 PM [facility] Work Phone: 11-26-[address] Mendez reviewed labs from [facility]. Dr. Mendez recommended for patient to be seen around mid Dec 2024 as hem/onc follow-up. Grupo Mendez MD November 26, 2024 5:33 PM Spoke w/ pt stator connector, Angela. Pt is still inpatient. When she is discharged she will be sent to a rehab and will not be able to make appts. Any time soon. Please advise for further requirements. documented in this encounter [facility] 11-26-2024 Note [facility] 11-26-2024 Telephone encounter Note Spoke w/ pt stator connector, Angela. Pt is still inpatient. When she is discharged she will be sent to a rehab and will not be able to make appts. Any time soon. Please advise for further requirements. [facility] 11-26-2024 Note [facility] 11-25-2024 Note [facility] 11-24-2024 Note [facility] 11-23-2024 Note [facility] 11-23-2024 Note [facility] 11-22-2024 Note [facility] 11-21-2024 Note [facility] 11-21-2024 Telephone encounter Note Currently has appointment in Rheumatology 01/04/25 to evaluate for inflammatory arthritis. There was a Hematology appointment scheduled 12/03/24, but rescheduled by family due to location. MRI ankle 11/19/24 ordered by Orthopedics. Patient sent My Chart message to Orthopedics 11/20/24. I reminded patient/family that My Chart can take up to 72 business hours for response. Willie Kaur APRN.FARM MARKETER [facility] 11-21-2024 Miscellaneous Notes Currently has appointment in Rheumatology 01/04/25 to evaluate for inflammatory arthritis. There was a Hematology appointment scheduled 12/03/24, but rescheduled by family due to location. MRI ankle 11/19/24 ordered by Orthopedics. Patient sent My Chart message to Orthopedics 11/20/24. I reminded patient/family that My Chart can take up to 72 business hours for response. Willie Kaur APRN.FARM MARKETER documented in this encounter [facility] 11-19-2024 History of Present illness Narrative [...] PATIENT PRESENTS WITH AN IMPLANTABLE OR ATTACHED SENIOR C SOFTWARE ENGINEER: No RADIOLOGY DEPARTMENT: MR; Exam(s) Completed: Lower MSK: Ankle/Hind Foot, right PERIPHERAL IV DATA: Not applicable SIGNED BY: HALI Tierney November 19, 2024 10:07 AM documented in this encounter [facility] 11-19-2024 Note HNO ID: [id number] Author: YAZ MAYFIELD MRI Tech Service: Radiology Author Type: Pit Worker Power Shovel Type: Progress Notes Filed: 11/19/2024 10:08 Note [...] PATIENT PRESENTS WITH AN IMPLANTABLE OR ATTACHED SENIOR C SOFTWARE ENGINEER: No RADIOLOGY DEPARTMENT: MR; Exam(s) Completed: Lower MSK: Ankle/Hind Foot, right PERIPHERAL IV DATA: Not applicable SIGNED BY: HALI Tierney November 19, 2024 10:07 AM [facility] 11-06-2024 Telephone encounter Note Patient took a sooner appt in November. [facility] 11-06-2024 Miscellaneous Notes Patient took a sooner appt in November. Currently has Rheumatology scheduled 01/04/25. Are there any sooner appointments and would family be interested? She has been seeing Hematology and they think that her abnormal blood work may have a Rheumatology cause. Willie Kaur APRN.CNP documented in this encounter [facility] 11-06-2024 Telephone encounter Note Currently has Rheumatology scheduled 01/04/25. Are there any sooner appointments and would family be interested? She has been seeing Hematology and they think that her abnormal blood work may have a Rheumatology cause. Willie Kaur APRN.CNP [facility] 11-05-2024 Telephone encounter Note Patient has secondary leukocytosis in the setting of highly elevated sed rate, RUBEN 1:320 titer, positive STONE GANG SAWYER Hematology work-up was essentially negative highlighting concern for rheumatological disease. Patient is leaving to [place] for 2 weeks I will schedule lab on 11/21/2024 and see her on 11/22/2024 at 9:10 AM for iron deficiency (this is separate issue). Renetta with care coordination will kindly help with arranging lab and follow-up as above. Patient and family aware of my plan. Grupo Mendez MD November 05, 2024 6:55 PM [facility] 11-05-2024 Miscellaneous Notes Patient has secondary leukocytosis in the setting of highly elevated sed rate, RUBEN 1:320 titer, positive STONE GANG SAWYER Hematology work-up was essentially negative highlighting concern for rheumatological disease. Patient is leaving to [place] for 2 weeks I will schedule lab on 11/21/2024 and see her on 11/22/2024 at 9:10 AM for iron deficiency (this is separate issue). Renetta with care coordination will kindly help with arranging lab and follow-up as above. Patient and family aware of my plan. Grupo Mendez MD November 05, 2024 6:55 PM documented in this encounter [facility] 11-01-2024 Note Addended by: SIMONE AGUILAR on: 11/01/2024 03:34 PM Modules accepted: Orders [facility] 11-01-2024 Miscellaneous Notes Addended by: SIMONE KEVIN on: 11/01/2024 03:34 PM Modules accepted: Orders documented in this encounter [facility] 11-01-2024 Note HNO ID: [id number] Author: SIMONE KEVIN MD Service: ? Author [...] L REMV CATARACT EXTRACAP,INSERT LENS Bilateral 2020 [facility] Family History: FAMILY HISTORY Problem Relation Age of Onset None Brother None Sister None Brother Medications: Current Outpatient Medications Medication Sig meloxicam (MOBIC) 15 mg tablet TAKE 1 TABLET BY MOUTH ONCE DAILY NEEDED FOR PAIN. DO NOT COMBINE WITH DICLOFENAC GEL traZODone (DESYREL) 50 mg tablet Take 1 tablet by mouth at bedtime as needed for sedation. blood sugar diagnostic (Private.MeUCH ULTRA TEST) test strip Test blood sugar [...] her anatomy B (more content not included)... [facility] 11-01-2024 History of Present illness Narrative [...] L REMV CATARACT EXTRACAP,INSERT LENS Bilateral 2020 [facility] Family History: FAMILY HISTORY Problem Relation Age of Onset None Brother None Sister None Brother Medications: Current Outpatient Medications Medication Sig meloxicam (MOBIC) 15 mg tablet TAKE 1 TABLET BY MOUTH ONCE DAILY NEEDED FOR PAIN. DO NOT COMBINE WITH DICLOFENAC GEL traZODone (DESYREL) 50 mg tablet Take 1 tablet by mouth at bedtime as needed for sedation. blood sugar diagnostic (Private.MeUCH ULTRA TEST) test strip Test blood sugar [...] next visit: No PCP: [place] [id number] [facility] [id number] FELLOW / RESIDENT: No fellow or resident assisted in this office visit. Simone Kevin MD documented in this encounter [facility] 10-29-2024 Note HNO ID: [id number] Author: AB BENSON MD Service: ? Author Type: Physician Type: Progress Notes Filed: 11/04/2024 19:29 Note Text: This note was created using PonoMusicriter. Subjective Yusuf Medina is a 88 year [...] and family voiced understanding. Ab Benson MD [facility] 10-29-2024 History of Present illness Narrative Images from the original note were not included. This note was created using PonoMusicriter. Subjective Yusuf Medina is a 88 year [...] Benson MD documented in this encounter [facility] 10-12-2024 Telephone encounter Note The following approved medication requests have been transmitted electronically. Requested Prescriptions Signed Prescriptions Disp Refills meloxicam (MOBIC) 15 mg tablet 90 tablet 3 Sig: TAKE 1 TABLET BY MOUTH ONCE DAILY NEEDED FOR PAIN. DO NOT COMBINE WITH DICLOFENAC GEL Authorizing Provider: WILLIE KAUR APRN.CNP [facility] 10-12-2024 Miscellaneous Notes The following approved [...] Tucker MA documented in this encounter [facility] 10-12-2024 Telephone encounter Note Patient has [...] review and advise. Martina Tucker MA [facility] 09-20-2024 History of Present illness Narrative [...] L REMV CATARACT EXTRACAP,INSERT LENS Bilateral 2020 [facility] Family History: FAMILY HISTORY Problem Relation Age of Onset None Brother None Sister None Brother Medications: Current Outpatient Medications Medication Sig traZODone (DESYREL) 50 mg tablet Take 1 tablet by mouth at bedtime as needed for sedation. blood sugar diagnostic (Private.MeUCH ULTRA TEST) test strip Test blood sugar [...] next visit: No PCP: [place] [id number] [facility] [id number] FELLOW / RESIDENT: No fellow or resident assisted in this office visit. Simone Kevin MD documented in this encounter [facility] 09-20-2024 Note HNO ID: [id number] Author: SIMONE KEVIN MD Service: ? Author [...] L REMV CATARACT EXTRACAP,INSERT LENS Bilateral 2020 [facility] Family History: FAMILY HISTORY Problem Relation Age of Onset None Brother None Sister None Brother Medications: Current Outpatient Medications Medication Sig traZODone (DESYREL) 50 mg tablet Take 1 tablet by mouth at bedtime as needed for sedation. blood sugar diagnostic (StarMaker InteractiveTOUCH ULTRA TEST) test strip Test blood sugar [...] May have so (more content not included)... [facility] 09-19-2024 History of Present illness Narrative [...] PATIENT PRESENTS WITH AN IMPLANTABLE OR ATTACHED SENIOR C SOFTWARE ENGINEER: No RADIOLOGY DEPARTMENT: General X-ray: Exam(s) Completed: Lower Extremity X-Ray(s): Foot, Right and Wt. Bearing and Heel, Right and Wt. Bearing PERIPHERAL IV DATA: Not applicable SIGNED BY: RUT Hui September 19, 2024 2:13 PM documented in this encounter [facility] 09-19-2024 Note HNO ID: [id number] Author: ZAID KUHN CT Service: Radiology Author [...] PATIENT PRESENTS WITH AN IMPLANTABLE OR ATTACHED SENIOR C SOFTWARE ENGINEER: No RADIOLOGY DEPARTMENT: General X-ray: Exam(s) Completed: Lower Extremity X-Ray(s): Foot, Right and Wt. Bearing and Heel, Right and Wt. Bearing PERIPHERAL IV DATA: Not applicable SIGNED BY: RUT Hui September 19, 2024 2:13 PM [facility] 09-18-2024 Telephone encounter Note Results were reviewed. I spoke with cozcpr-dz-wyv Demetria about suspicion for calcaneal bone fracture. Orders Signed This Visit (1) CONSULT PANEL TO ORTHOPAEDICS STAT, Dx: 1. Right ankle swelling 2. Closed nondisplaced fracture of right calcaneus, unspecified portion of calcaneus, initial encounte Grupo Mendez MD September 18, 2024 9:19 PM [facility] 09-18-2024 Miscellaneous Notes Results were reviewed. I spoke with fopjer-xo-uag Demetria about suspicion for calcaneal bone fracture. Orders Signed This Visit (1) CONSULT PANEL TO ORTHOPAEDICS STAT, Dx: 1. Right ankle swelling 2. Closed nondisplaced fracture of right calcaneus, unspecified portion of calcaneus, initial encounte Grupo Mendez MD September 18, 2024 9:19 PM documented in this encounter [facility] 09-18-2024 History of Present illness Narrative [...] PATIENT PRESENTS WITH AN IMPLANTABLE OR ATTACHED SENIOR C SOFTWARE ENGINEER: No RADIOLOGY DEPARTMENT: Ultrasound PERIPHERAL IV DATA: Not applicable SIGNED BY: Christina Tucker RDMS September 18, 2024 8:37 AM documented in this encounter [facility] 09-18-2024 Note [facility] 09-17-2024 Telephone encounter Note This was addressed in hematology appointment in [place]. Closing this encounter [facility] 09-17-2024 Miscellaneous Notes This was addressed in hematology appointment in [place]. Closing this encounter Vm left for patient's son. She has an appointment today in [place]-can Yusuf go to express care there after hematology? documented in this encounter [facility] 09-17-2024 Instructions Grupo Mendez MD - 09/17/2024 3:52 PM EST Please schedule Xray right ankle today Please schedule STAT US DVT right lower leg tomorrow Please send patient to lab today For scheduling questions, please call [phone] (tests and appointments). Ask for the oncology rehabilitation aide/scheduler. For symptom management or care coordination questions, please call Renetta Holder at [phone] or use my chart to reach us. After hours with medical questions, please call the doctor on-call at [phone]. Thank you, Grupo Mendez MD documented in this encounter [facility] 09-17-2024 History of Present illness Narrative Consultation requested by Dr. Migdalia Cramer for an opinion regarding leukocytosis. My final recommendations will be communicated back to the requesting physician by way of shared Medical record or letter to requesting physician via US mail. Presenting complaint: Patient Yusuf Medina was sent to my office to be evaluated for leukocytosis. ASSESSMENT: (M05.168) Leukocytosis, unspecified type (primary encounter diagnosis) Comment: [...] L REMV CATARACT EXTRACAP,INSERT LENS Bilateral 2020 [facility] FAMILY HISTORY Problem Relation Age of [...] as needed for sedation. blood sugar diagnostic (StarMaker InteractiveTOUCH ULTRA TEST) test strip Test blood sugar [...] Range Status 09/17/2024 5.5 % Final Abs [place] Date Value Ref Range Status 09/17/2024 0.52 [...] Ortiz MD documented in this encounter [facility] 09-17-2024 Note HNO ID: [id number] Author: GRUPO MENDEZ MD Service: ? Author [...] office to be evaluated for leukocytosis. ASSESSMENT: (E86.538) Leukocytosis, unspecified type (primary encounter diagnosis) Comment: [...] L REMV CATARACT EXTRACAP,INSERT LENS Bilateral 2020 [facility] FAMILY HISTORY Problem Relation Age of [...] as needed for sedation. blood sugar diagnostic (StarMaker InteractiveTOUCH ULTRA TEST) test strip Test blood sugar [...] ONCE DAILY metFORMIN (more content not included)... [facility] 09-17-2024 Telephone encounter Note Vm left for patient's son. She has an appointment today in [place]-can Yusuf go to express care there after hematology? [facility] 09-13-2024 Note HNO ID: [id number] Author: MIGDALIA CRAMER MD Service: ? Author [...] panel in 6 months Migdalia Cramer MD [facility] 09-13-2024 History of Present illness Narrative [...] Cramer MD documented in this encounter [facility] 09-13-2024 Instructions Migdalia Cramer MD - [...] review all the medicines you take, even xrtm-gls-ssnrdoo medicines. As you get older, the way [...] medical conditions. documented in this encounter [facility] 09-04-2024 Telephone encounter Note Patient has been scheduled for 09/17 Thank you [facility] 09-04-2024 Miscellaneous Notes Patient has been scheduled for 09/17 Thank you Please contact the patient's cgxipx-mx-dbu Demetria at [phone] to assist with scheduling a consult with hematology/oncology for a high white blood cell count. I sent a MyCSplinter.met message today about test results: Nori Ramos [...] recommend we get a consultation with a automotive technician, a blood specialist. I put an order in for a consultation and will ask a rehabilitation aide/scheduler to contact you to get it set up. We just want to make sure there is nothing serious going on that we should be more concerned about. Migdalia Cramer MD documented in this encounter [facility] 09-04-2024 Telephone encounter Note Please contact the patient's wgwlab-ko-ruf Demetria at [phone] to assist with scheduling a consult with hematology/oncology for a high white blood cell count. I sent a MyCSplinter.met message today about test results: Nori Ramos [...] recommend we get a consultation with a automotive technician, a blood specialist. I put an order in for a consultation and will ask a rehabilitation aide/scheduler to contact you to get it set up. We just want to make sure there is nothing serious going on that we should be more concerned about. Migdalia Cramer MD [facility] 08-22-2024 Telephone encounter Note Patients sister in law has been informed. Thank you [facility] 08-22-2024 Miscellaneous Notes Patients sister in [...] the labs. documented in this encounter [facility] 08-21-2024 Telephone encounter Note Please let her know that Dr. Cramer is currently evaluating the lab results and will reach out to her as soon as he is able. He is currently out of the office. Willie APRN.CNP [facility] 08-21-2024 Telephone encounter Note The following approved medication requests have been transmitted electronically. Requested Prescriptions Signed Prescriptions Disp Refills blood sugar diagnostic (ONETOUCH ULTRA TEST) test strip 100 Strip 3 Sig: Test blood sugar once daily Authorizing Provider: WILLIE KAUR APRN.CNP [facility] 08-21-2024 Miscellaneous Notes The following approved [...] 10:12 AM documented in this encounter [facility] 08-21-2024 Telephone encounter Note Patient has [...] review and advise. Jame Hernandez MA [facility] 08-21-2024 Telephone encounter Note Prescription Refill [...] Perla Perez August 21, 2024 10:12 AM [facility] 08-21-2024 Telephone encounter Note Patients sister in law called and wanted to discuss the results of the labs. [facility] 08-14-2024 History of Present illness Narrative [...] COMBINE WITH DICLOFENAC GEL blood sugar diagnostic (StarMaker InteractiveTOUCH ULTRA TEST) test strip Test blood sugar [...] worsening over a long period of time Wlilie Kaur APRN.FARM MARKETER I have personally performed a lezx-lu-hqln evaluation on this patient. I have reviewed [...] Cramer MD documented in this encounter [facility] 08-14-2024 Note HNO ID: [id number] Author: MIGDALIA CRAMER MD Service: ? Author [...] COMBINE WITH DICLOFENAC GEL blood sugar diagnostic (Private.MeUCH ULTRA TEST) test strip Test blood sugar [...] swelling or eryt (more content not included)... [facility] 08-13-2024 Note SARS-COV-2 (AGENT OF COVID-19) RNA: Not detected INFLUENZA A RNA: Not detected INFLUENZA B RNA: Not detected RESPIRATORY SYNCYTIAL VIRUS (RSV) RNA: Not detected [facility] Comment on above: Performed By: #### B CRPB1 #### [facility] CLIA [id number] [address] [place] [address] #### ISMRNCNPB #### [facility] CLIA [id number] [facility] [address] [facility] 08-13-2024 Telephone encounter Note Called sister in law who is with the patient, patient is Qatari speaking. ? Blood sugar-patient checks every am, did not do today and is not understanding that sister in law would like her to check it now. She did eat this morning [place] recently Concern based on pill box that she may have taken a days Sister-in -law is in agreement that patient needs to be seen in an emergency room-[place] close. Reason for Disposition [1] Drinking very little AND [2] dehydration suspected (e.g., no urine > 12 hours, very dry mouth, very lightheaded) Answer Assessment - Initial Assessment Questions 1. DESCRIPTION: "Describe how you are feeling." Patient speaks Qatari, Sister-in -law is there with her. Patient [...] pain) no Protocols used: Weakness (Generalized) and Nnisqma-MBGAL-HS [facility] 08-13-2024 Miscellaneous Notes Called sister in law who is with the patient, patient is Qatari speaking. ? Blood sugar-patient checks every am, did not do today and is not understanding that sister in law would like her to check it now. She did eat this morning [place] recently Concern based on pill box that she may have taken a days Sister-in -law is in agreement that patient needs to be seen in an emergency room-[place] is close. Reason for Disposition [1] Drinking very little AND [2] dehydration suspected (e.g., no urine > 12 hours, very dry mouth, very lightheaded) Answer Assessment - Initial Assessment Questions 1. DESCRIPTION: "Describe how you are feeling." Patient speaks Qatari, Sister-in -law is there with her. Patient [...] pain) no Protocols used: Weakness (Generalized) and Ymiivwp-RPLEU-UY Patient's caregiver Demetria spoke with the patient [...] seen today. Demetria can be reached at [phone]. documented in this encounter [facility] 08-13-2024 Telephone encounter Note Patient's caregiver [...] seen today. Demetria can be reached at [phone]. [facility] 08-10-2024 Telephone encounter Note The following approved medication requests have been transmitted electronically. Requested Prescriptions Signed Prescriptions Disp Refills glipiZIDE (GLUCOTROL XL) 2.5 mg 24 hr tablet 90 tablet 3 Sig: TAKE 1 TABLET BY MOUTH ONCE DAILY Authorizing Provider: WILILE KAUR APRN.CNP [facility] 08-10-2024 Miscellaneous Notes The following approved [...] Christianson LPN documented in this encounter [facility] 08-10-2024 Telephone encounter Note Patient has [...] Please review and advise. Sandrita Christianson LPN [facility] 07-19-2024 Telephone encounter Note The following [...] BEING SHIPPED Authorizing Provider: WILLIE KAUR APRN.CNP [facility] 07-19-2024 Miscellaneous Notes The following approved [...] KAUR APRN.CNP [facility], halfway to [facility] per message below. [...] short term refill can be sent to [facility] and then the rest sent to [facility]. Please advise Perla Perez July 19, 2024 9:49 AM documented in this encounter [facility] 07-19-2024 Telephone encounter Note [facility] halfway to [facility] pharmacy per message below. [facility] 07-19-2024 Telephone encounter Note Prescription Refill [...] Perez July 19, 2024 9:49 AM [facility] 07-12-2024 Instructions Migdalia Cramer MD - 07/12/2024 9:56 AM EDT Try drinking 1 Glucerna a day to get some extra calories. I don't want you to continue to lose weight. Take all medications exactly as prescribed. Please have labs done again in late August. Keep appointment scheduled for 09/13/24 for Medicare Annual Wellness Visit. documented in this encounter [facility] 07-12-2024 Note HNO ID: [id number] Author: MIGDALIA CRAMER MD Service: ? Author [...] of keeping this visit Migdalia Cramer MD [facility] 07-12-2024 History of Present illness Narrative [...] Cramer MD documented in this encounter [facility] 05-23-2024 Telephone encounter Note Patient has [...] review and advise. Sandrita Christianson LPN [facility] 05-23-2024 Miscellaneous Notes Patient has been [...] 10:28 AM documented in this encounter [facility] 05-23-2024 Telephone encounter Note Prescription Refill [...] needs a short term refill sent to [facility] and a 90 day supply sent to [facility] sehe only has 2 pills left Peral Perez May 23, 2024 10:28 AM [facility] 04-26-2024 Telephone encounter Note Scheduled for Medicare AWV 09/13/24 Has lab orders The following approved medication requests have been transmitted electronically. Requested Prescriptions Signed Prescriptions Disp Refills pioglitazone (ACTOS) 45 mg tablet 90 tablet 3 Sig: Take 1 tablet by mouth once daily. Authorizing Provider: MIGDALIA CRAMER MD [facility] 04-26-2024 Miscellaneous Notes Scheduled for Medicare [...] Last office visit in this department: 04/13/2023 [facility] health: 04/23/2023 FOV: 07/12/2024 RX INSTRUCTIONS: Patient [...] Hernandez MA documented in this encounter [facility] 04-26-2024 Telephone encounter Note Patient has [...] review and advise. Jame Hernandez MA [facility] 04-16-2024 Telephone encounter Note Spoke with sister in Demetria saenz and explained that her current Rx is for Glipizide/Glucotrol 2.5 mg once daily - not for Glyburide. Verbalized understanding. No further questions. [facility] 04-16-2024 Miscellaneous Notes Spoke with sister in Demetria saenz and explained that her current Rx is for Glipizide/Glucotrol 2.5 mg once daily - not for Glyburide. Verbalized understanding. No further questions. Patients sister in law Aguustin called and needs clarification on the patient diabetes medications she stated that she got a call from [facility] stating that she had glyburide ready for clam picker but she thought she was supposed to be taking glipizide. Please advise documented in this encounter [facility] 04-16-2024 Telephone encounter Note Patients sister in law Demetria called and needs clarification on the patient diabetes medications she stated that she got a call from [facility] stating that she had glyburide ready for clam picker but she thought she was supposed to be taking glipizide. Please advise [facility] 03-21-2024 History of Present illness Narrative [...] relevant components. documented in this encounter [facility] 03-13-2024 History of Present illness Narrative [...] POPULATION HEALTH NAVIGATION OUTREACH Action/FYI Spoke with tyiugu-ng-ucx Angela. Patient is on [facility] for the following HM care gaps: Schedule wellness visit - Appointment scheduled for 09/13/24. Schedule follow up - Appointment scheduled for 8/29/24. Dilated Retinal Exam - Appointment scheduled for [...] Exam HBA1C 03/21/2024 in [facility] with GERTRUDIS BILL - Dilated Retinal Exam 04/12/2024 in [facility] with ADITI CAMARGO - HFU pseudogout 07/12/2024 in [facility] with MIGDALIA CRAMER - Follow Up, HCC Gap Closure 09/13/2024 in [facility] with MIGDALIA CRAMER - AWV Due HCC related Navigation Signature: Lien Rutledge MA March 13, 2024 2:52 PM documented in this encounter [facility] 02-28-2024 Miscellaneous Notes The following approved medication requests have been transmitted electronically. Requested Prescriptions Signed Prescriptions Disp Refills lansoprazole (PREVACID) 30 mg capsule 90 capsule 3 Sig: Take 1 capsule by mouth once daily. Authorizing Provider: WILLIE KAUR APRN.CNP Order pended for mail Last OV-04/23/2023 [facility] Next OV-none Alteration Workroom Supervisor is calling ,asking for a refill on the following medications . pravastatin (PRAVACHOL) 20 mg tablet 90 tablet 3 10/23/2022 10/23/2023 Sig: Take 1 tablet by mouth once daily. Sent to pharmacy as: pravastatin (PRAVACHOL) 20 mg tablet Class: Normal Route: ORAL Order: [id number] E-Prescribing Status: Receipt confirmed by pharmacy (10/23/2022 9:10 AM EST) She doesn't have many left , they are asking for this fill to be sent to the [facility] . Then if she gets refills send it to the mail in pharmacy . Please advise and route back so we can make stator connector aware . Thanks documented in this encounter [facility] 02-01-2024 Miscellaneous Notes The following approved medication requests have been transmitted electronically. Requested Prescriptions Signed Prescriptions Disp Refills lisinopril-hydroCHLOROthiazide (ZESTORETIC) 20-25 mg per tablet 90 tablet 3 Sig: TAKE 1 TABLET BY MOUTH ONCE DAILY Authorizing Provider: WILLIE KAUR APRN.CNP documented in this encounter [facility] 02-01-2024 Miscellaneous Notes The following approved medication requests have been transmitted electronically. Requested Prescriptions Signed Prescriptions Disp Refills amLODIPine (NORVASC) 5 mg tablet 90 tablet 3 Sig: TAKE 1 TABLET BY MOUTH ONCE DAILY Authorizing Provider: WILLIE KAUR APRN.CNP documented in this encounter [facility] 01-24-2024 Miscellaneous Notes Contacted the caregiver stated the patient clam picker the prescription. Request denied no further action needed. 7 day short term Rx sent to [facility] on 01/11/24. 1 year terminal superintendent Rx sent to [facility] on 01/11/24. Please call to clarify if [...] review and advise. Jame Hernandez MA [facility] Willie Kaur APRN.DARKE Order Providers Prescribing Provider Encounter Provider Willie Kaur APRN.Migdalia Victoria MD Outpatient Medication Detail Disp Refills Start End metFORMIN (GLUCOPHAGE) 850 mg tablet 14 tablet 0 01/11/2024 01/18/2024 Sig: Take 1 tablet by mouth two times a day with meals for 7 days. Sent to pharmacy as: metFORMIN (GLUCOPHAGE) 850 mg tablet Class: Normal Route: ORAL Order: [id number] E-Prescribing Pt states she is completely out and mail order has not come in would like a short supply sent to [facility] documented in this encounter [facility] 01-11-2024 Miscellaneous Notes The following approved [...] for temporary supply to be sent to [facility] while they wait for [facility] for 90 day supply. Please review and advise. Jame Hernandez MA Yusufcece Medina called today. Reason : Yusuf stator connector is calling today , she states the [...] mg tablet Class: Normal Route: ORAL Order: [id number] E-Prescribing Status: Receipt confirmed by pharmacy (10/14/2023 2:49 PM EST) Please advise and route back so caregiver can be updated . Thanks documented in this encounter [facility] 10-14-2023 Miscellaneous Notes The following approved medication requests have been transmitted electronically. Requested Prescriptions Signed Prescriptions Disp Refills metFORMIN (GLUCOPHAGE) 850 mg tablet 14 tablet 0 Sig: Take 1 tablet by mouth two times a day with meals for 7 days. Authorizing Provider: WILLIE KAUR APRN.FARM MARKETER Patient has been identified by name and [...] also needs an emergency script sent to [facility] on [address] in [place]. Patient has been identified by name and date of : Yes Requested Prescriptions Pending Prescriptions Disp Refills metFORMIN (GLUCOPHAGE) 850 mg tablet 180 tablet 3 Sig: Take 1 tablet by mouth two times a day with meals. RX INSTRUCTIONS: Patient aware RX escripted to mail away pharmacy. No need to notify patient. Dinora Perez documented in this encounter [facility] 09-06-2023 Miscellaneous Notes The following approved [...] Hernandez MA documented in this encounter [facility] 08-31-2023 Miscellaneous Notes Called the number on the chart and confirmed with stator connector that the medication has been sent as [...] that 1 year supply was sent to [facility] pharmacy on 06/02/23. Demetria states that's the problem, all her medications need to go through mail order as her insurance will not cover medications sent to [facility]. Informed her that will send high priority to provider to send short term supply of medication to pharmacy today so it can be picked up and terminal superintendent supply to be sent through mail order. Demetria agreeable and verbalized understanding. Please advise Thank you! Please call to review with Demetria the pharmacy issue for patient's Glipizide. She is asking for a call today as the patient has 1 left. documented in this encounter [facility] 06-23-2023 Miscellaneous Notes The following approved medication requests have been transmitted electronically. Requested Prescriptions Signed Prescriptions Disp Refills metFORMIN (GLUCOPHAGE) 850 mg tablet 180 tablet 3 Sig: Take 1 tablet by mouth twice daily with meals. Authorizing Provider: WILLIE KAUR APRN.FARM MARKETER Patient has been identified by name and [...] Hay Pss documented in this encounter [facility] 06-03-2023 Miscellaneous Notes Called and left VM. 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 [address] [place] [address] Leanne Ding documented in this encounter [facility] 05-12-2023 Miscellaneous Notes 7.6 (03/08/2023) documented in this encounter [facility] 04-28-2023 History of Present illness Narrative [...] Care Gap or Scheduling/Wellness visits Payer: Payor: [facility] MEDICARE / Plan: [facility] MEDICARE ADVANTAGE PPO / Product [...] 12:52 PM documented in this encounter [facility] 04-20-2023 Miscellaneous Notes Contacted patient's caregiver [...] new one? Please advise Thank you Patient's stator connector Demetria calling with a question for a nurse regarding the patient's blood glucose monitor. Please call. TY documented in this encounter [facility] 04-20-2023 Miscellaneous Notes Caregiver made aware [...] ok. TY documented in this encounter [facility] 04-13-2023 Instructions Willie Kaur APRN.CNP - [...] too low documented in this encounter [facility] 04-13-2023 History of Present illness Narrative [...] diabetes. Demetria must come to act as peoplesoft consultant, they decline peoplesoft consultant. Patients last HgbA1C was Hemoglobin A1C (%) Date Value 03/08/2023 7.6 10/21/2022 7.5 04/27/2022 7.1 10/12/2021 7.4 09/10/2020 6.7 01/24/2020 6.8 ). Last BP 04/13/23 : 125/63 03/29/23 : 150/71 03/17/23 : 146/67 CKD3 Creatinine Date Value Ref Range Status 03/09/2023 0.92 0.58 - 0.96 mg/dL Final Demetria as peoplesoft consultant Declines [facility] peoplesoft consultant Current Outpatient Medications on File Prior to Visit Medication Sig metFORMIN (GLUCOPHAGE) 1,000 mg tablet Take 1 tablet by mouth twice daily with meals. blood sugar diagnostic ([employer] ULTRA TEST) test strip Test blood [...] diabetes. Demetria must come to act as peoplesoft consultant, they decline peoplesoft consultant. - GLIPIZIDE ER 2.5 MG TABLET, EXTENDED RELEASE 24 HR 2. CKD stage 3 due to type 2 diabetes mellitus (HCC) - ICD9: 250.40, 585.3, ICD10: E11.22, N18.30 - Stable Willie Kaur APRN.DRAKE documented in this encounter [facility] 03-29-2023 Instructions Willie Kaur APRN.CNP - 03/29/2023 3:50 PM EDT Check blood sugar once per day Tuesday - check in morning Tuesday - check in evening Tuesday - check in morning Tuesday - check in evening - check in morning Tuesday - check in evening Tuesday - check in morning documented in this encounter [facility] 03-29-2023 History of Present illness Narrative SUBJECTIVE: Yusuf Medina is a 87 year old female who presents for 2 week evaluation and treatment of DM Sister in law Augustin acts as peoplesoft consultant, declines phone peoplesoft consultant 03/17/23 Family Medicine office visit Sister in [...] Kaur APRN.DRAKE documented in this encounter [facility] 03-24-2023 Miscellaneous Notes Called caregiver and [...] like office to call her back at [phone] as soon as possible. Patient has been identified by name and birthdate. Duration of symptoms: N/A Person calling: caregiver: Demetria Call patient at: at home [phone] (home) [phone] (cell) Was an appointment scheduled: No Closing statement: Results or non-symptom based questions: Thank you for calling [facility], your call will be returned within the next business day. Laura Hay Pss documented in this encounter [facility] 03-22-2023 Miscellaneous Notes Spoke with patient's caregiver, Demetria. Documented in nurse triage encounter from 03/18/23. Patient caregiver called back.She would like a call back at [phone] Thanks Left message to call the office back, may speak with any available triage nurse. Gabbie Melchor RN Demetria is calling on behalf of [employer]. She has blood sugars readings to give and would like to speak to a nurse with the readings and any changed to meds. Please call her at [phone] documented in this encounter [facility] 03-17-2023 History of Present illness Narrative [...] Lymph 1.00 - 4.00 k/uL 0.71 (L) [place]% % 5.7 Abs [place] <0.87 k/uL 0.99 (H) E[place]% % 0.7 [...] Demetria prefers to not drive to [place] so she will try to reschedule this. - CONSULT TO UNDERGROUND ROOF BOLTER 3. Leukocytosis, unspecified type - ICD9: 288.60, ICD10: D72.829 - Resolved 4. Type 2 diabetes mellitus with stage 3 chronic kidney disease, without long-term current use of insulin ([facility]) - ICD9: 250.40, 585.3, ICD10: [...] 2:20 PM documented in this encounter [facility] 03-10-2023 History of Present illness Narrative Noted Willie Kaur APRN.CNP TCM Home Visit Referral Source of Stratification: [facility] Admission Status: Discharged Readmission Risk Score: [...] Network Status: In-Network Discharge Pt discharged from [facility] on 03/09/23. Admitted for: Arthalgia Contact made with patient: Yes Hi my name is Lien Hankins RN and I am calling from the [facility] on behalf of your PCP, Migdalia [...] like to speak with a social work steamtable worker to help give you support for any [...] I will send your request to a rehabilitation aide/scheduler who will contact and assist you with [...] -: No documented in this encounter [facility] 03-07-2023 History of Past i llness [...] this encounter (statuses as of 03/10/2023) [facility] History of Past illness Narrative* Problem [...] this encounter (statuses as of 03/19/2023) [facility] History of Past illness Narrative* Problem [...] this encounter (statuses as of 03/23/2023) [facility] History of Past illness Narrative* Problem [...] this encounter (statuses as of 03/24/2023) [facility] History of Past illness Narrative* Problem [...] this encounter (statuses as of 03/30/2023) [facility] of Past illness Narrative* Problem [...] this encounter (statuses as of 04/14/2023) [facility] of Past illness Narrative* Problem [...] this encounter (statuses as of 04/20/2023) [facility] of Past illness Narrative* Problem [...] this encounter (statuses as of 04/20/2023) [facility] of Past illness Narrative* Problem [...] this encounter (statuses as of 04/28/2023) [facility] of Past illness Narrative* Problem [...] Miralax and Colace to prevent narcotic-induced constipation -MAKR Huizar in Neurosurgery spoke with Dr. Martines [...] this encounter (statuses as of 05/16/2023) [facility] History of Past illness Narrative* Problem [...] this encounter (statuses as of 06/15/2023) [facility] of [facility] illness Narrative* Problem [...] this encounter (statuses as of 06/23/2023) [facility] of Past illness Narrative* Problem [...] this encounter (statuses as of 08/31/2023) [facility] of Past illness Narrative* Problem [...] this encounter (statuses as of 09/06/2023) [facility] of Past illness Narrative* Problem [...] this encounter (statuses as of 10/14/2023) [facility] of Past illness Narrative* Problem [...] this encounter (statuses as of 01/12/2024) [facility] Past illness Narrative* Problem [...] this encounter (statuses as of 01/24/2024) [facility] of Past illness Narrative* Problem [...] this encounter (statuses as of 02/01/2024) [facility] of Past illness Narrative* Problem [...] this encounter (statuses as of 02/01/2024) [facility] of Past illness Narrative* Problem [...] this encounter (statuses as of 02/29/2024) [facility]04-11-2023 Miscellaneous Notes* Telephone Encounter - Ok [...] Jame Hernandez MA documented in [facility] encounterMer[facility]03[facility]23 Miscellaneous Notes* Telephone Encounter - Willie Karu APRN.CNP - 01/19/2023 3:48 PM EST The [...] Allergies: Patient has no known allergies. (home) [phone] (cell) Reason for call: patient needs a refill on the following medications Disp Refills Start End blood sugar diagnostic (ONETOUCH ULTRA BLUE TEST STRIP) test strip 300 Strip 3 2019 Sig: USE DIRECTED TO TEST BLOOD SUGARS 3 TIMES A DAY Sent to pharmacy as: blood sugar diagnostic (ONETOUCH ULTRA BLUE TEST STRIP) test strip Class: Normal Order: [id number] E-Prescribing Status: Receipt confirmed by pharmacy (2019 10:20 AM EST) Please advise and make patient aware Thanks documented [facility]23 Miscellaneous Notes* Telephone Encounter - Willie [...] Sandrita Christianson LPN documented [facility]12[facility] History of Present illness Narrative* Migdalia [...] Migdalia Cramer MD documented in [facility]Mer[facility]11-[facility]-2022 Miscellaneous Notes* Telephone Encounter - Willie [...] Sandrita Christianson LPN documented in [facility] encounterMer[facility]11-17-2022 Miscellaneous Notes* Telephone Encounter - Willie [...] Sandrita Christianson LPN documented in this encounterMer[facility]10-04-2022 Miscellaneous Notes* Telephone Encounter - Agustina [...] she only wants [address] [facility] - I made a copy and corrected the amount. Then I entered her request for the mail order going to [facility]. Each is assigned to the correct Pharmacy . Patient aware RX will be sent to pharmacy. Please call Demetria once sent at [phone]. Jodi Smith Pss documented in this encounterMer[facility]07-29-2022 Miscellaneous Notes* Telephone Encounter - Willie [...] his note. They should be able to clam picker a kit form [facility] lab. He also asked them to consider a diagnostic colonoscopy, which is not Cologuard. Willie Kaur APRN.CNP * Telephone Encounter - Sandrita Christianson LPN - 06/10/2022 9:56 AM EDT Fax received from [facility] that pt has not completed Cologuard that was ordered on 04/08/22. Fax scanned into pt's chart (according to chart, pt had diag occult blood exam on 04/27/22) Please advise Thank you documented in this encounterMercy [facility]07-15-2022 Miscellaneous Notes* Telephone Encounter - Willie [...] she does not have any glipizide left? Alteration Workroom Supervisor then proceeded to ask questions regarding pioglitazone-"is [...] send Short term supply of Glipizide to [facility]- [address] (pended for provider). * Telephone Encounter - Sandrita Christianson LPN - 05/28/2022 9:24 AM EDT PSS received call from pt's stator connector Demetria. Pt informed Demetria that she is [...] call our office. documented in this encounterMer[facility]06-[facility]-2022 History of Present illness Narrative* Migdalia [...] daily meds yet today Pt discharged from [facility] on 03/29/22. Admitted for: Pain in arms and legs with elevated white count and urinary tract infection Admitted to [facility] 03/23-03/26 and 03/26-03/29 (pain worsened and she [...] Migdalia Cramer MD documented in this encounterMercy [facility]06-14-2022 History of Present illness Narrative* Katia [...] in patient's care. Summary: Pt discharged from [facility] on 03/29/22. Admitted for: Pain in arms and legs with elevated white count and urinary tract infection Concerns: No concerns at this time. Sandwich Wrapper plan for next outreach: No further follow up needed at this time. TCM outreach complete. Signature Katia Farooq RN April 27, 2022 documented in this encounterMercy [facility]06-14-2022 Evaluation note* Diagnosis Hypertensive kidney disease with stage 3 chronic kidney disease, unspecified whether stage 3a or 3b CKD (HCC)- Primary documented in this encounter [facility]06-13[facility]22 Miscellaneous Notes* Telephone Encounter - Cheryl [...] 4:28 PM EDT Call placed to pt's stator connector, Demetria. Informed her of the 2 blood work orders to have completed, & that pt can give urine sample at [facility] when she goes for lab draw. Demetria also confirmed that they Did clam picker IFOBT but pt Having trouble going [...] Juanis Tamayo PA-C * Telephone Encounter - [facility] - 04/26/2022 9:37 AM EDT Patient caregiver Demetria calling to ask about the lab order in patient chart regarding the follow up urine. She states patient received a bottle for her to hand carry her urine, is that correct? Or is it to be done when she arrives [facility] the [facility]? And exactly which labs are to be done forscheduling? Demetria states when patient came in for labs she was told there were no orders and she does not want that to happen again. Call caregiver Demetria to discuss at [phone] documented in this encounterMercy [facility]05-26-2022 Miscellaneous Notes* Telephone Encounter - Sandrita Christianson LPN - 04/08/2022 1:25 PM EDT Pt's POA/stator connector Demetria notified & had no questions/concerns. * Telephone Encounter - Willie Kaur APRN.CNP - 04/08/2022 11:47 AM EDT Please notify patient that Cologuard has been ordered and [facility] [employer] [facility] Willie Kaur APRN.DRAKE * Telephone Encounter - Yeimy Dubon - 04/08/2022 10:37 AM EDT Patient's stator connector, Demetria is calling requesting the Cologuard kit. She is asking for the kit or prescription for the kit. Please return call at [phone] documented in this encounterMercy Health [facility] Hospital05-21-2022 Instructions* Patient Instructions* Migdalia Cramer MD [...] March. Consider colonoscopy. documented in this encounterMercy Health [facility] Hospital05-21-2022 History of Present illness Narrative* Migdalia [...] review completed Yes SUMMARY: Pt discharged from [facility] on 03/29/22. Admitted for: Pain in arms and legs with elevated white count and urinary tract infection Admitted to [facility] 03/23-03/26 and 03/26-03/29 (pain worsened and she [...] increased fatigue, less energy Pain today is /10, R arm ROS: (those not included in [...] BY MOUTH ONCE DAILY blood sugar diagnostic ([employer] Interactive[employer] ULTRA BLUE TEST STRIP) test strip USE [...] of the right femoral acetabular joint with [id number] contact, subchondral sclerosis and marginal osteophytosis. Left [...] 8:06 AM EDT documented in this encounterMercy Health [facility] Hospital05-17-2022 Miscellaneous Notes* Telephone Encounter - Willie [...] Willie Kaur APRN.CNP documented in this encounterMercy Health [facility] Hospital05-17-2022 Miscellaneous Notes* Telephone Encounter - Willie Kaur APRN.CNP - 03/30/2022 10:53 AM EDT Noted and agree with OV Willie Kaur APRN.CNP * Telephone Encounter - Magnolia Johnson RN - 03/30/2022 10:17 AM EDT Spoke with patients healthcare network pricing consultant Demetria. She had questions for the doctor [...] pain (volearen gel and lidocaine patches) and healthcare network pricing consultant is not sure how long she should be using those (advised for now to continue until follow up appointment) Offered several appointments this week but her healthcare network pricing consultant Demetria is having trouble getting her to [...] Assessment Questions Recently in the hospital. Pt healthcare network pricing consultant wanted a follow up to discuss med changes and how to help with her pain more terminal superintendent. Protocols used: INFORMATION ONLY CALL - NO [id number] * Telephone Encounter - ZANA Buck - 03/30/2022 9:16 AM EDT This morning Yusuf caregiver called with some concerns . She has had the patient in the ER two times in the last few days. She is experiencing all over painand would like more suggestions on how to help the patient . Please Advise Thanks documented in this encounterMercy Health [facility] Hospital05-14-2022 History of Past illness Narrative* Problem [...] this encounter (statuses as of 03/30/2022) [facility] of Past illness Narrative* Problem [...] this encounter (statuses as of 03/30/2022) [facility] of Past illness Narrative* Problem [...] this encounter (statuses as of 04/03/2022) [facility] of Past illness Narrative* Problem [...] this encounter (statuses as of 04/08/2022) [facility] of Past illness Narrative* Problem [...] this encounter (statuses as of 04/26/2022) [facility] of Past illness Narrative* Problem [...] this encounter (statuses as of 04/27/2022) [facility] of Past illness Narrative* Problem [...] this encounter (statuses as of 05/08/2022) [facility] of Past illness Narrative* Problem [...] this encounter (statuses as of 05/28/2022) [facility] illness Narrative* Problem [...] this encounter (statuses as of 06/11/2022) [facility] illness Narrative* Problem [...] this encounter (statuses as of 08/18/2022) [facility] illness Narrative* Problem [...] this encounter (statuses as of 09/30/2022) [facility] illness Narrative* Problem [...] this encounter (statuses as of 10/04/2022) [facility] of Past illness Narrative* Problem [...] this encounter (statuses as of 11/15/2022) [facility] Narrative* Problem [...] this encounter (statuses as of 12/28/2022) [facility] of Past illness Narrative* Problem [...] and Colace to prevent narcotic-induced constipation -MARK Hiuzar in Neurosurgery spoke with Dr. Martines as [...] this encounter (statuses as of 01/20/2023) [facility] of Past illness Narrative* Problem [...] this encounter (statuses as of 02/22/2023) [facility] Miscellaneous Notes* Telephone Encounter - Willie [...] 03/23/2022 10:18 AM EDT Pharmacy verified in [facility] Patient has been identified by name and [...] Aditi Novoa Pss documented in this encounterMercy Health [facility] Hospital05-09-2022 Miscellaneous Notes* Telephone Encounter - Willie [...] advise. Sangita Herring documented in this encounterMercy Health [facility] Hospital04-15-2022 Miscellaneous Notes* Telephone Encounter - Agustina [...] as discontinued. Please review and advise at [phone]. documented in this encounterMercy Health [facility] Hospital02-22-2022 Miscellaneous Notes* Telephone Encounter - Lucinda [...] sent to the pharmacy. Please call patient's stator connector at [phone] Daniel Holder documented in this encounterMercy Health Anderson Hospital01-24-2022 NoteHome care referral received for patient. Attempted to reach via telephone, however no answer. Voicemail left for return call. [facility]01-21-2022 [facility] CONSULTATION YUSUF MEDINA CCE [id number] [phone] [facility] NIGHAT PENNY MD [id number] REFERRING PHYSICIAN: CONSULTING PHYSICIAN: Gertrudis Beckford DO DATE OF CONSULTATION: 12/04/2021 CHIEF COMPLAINT: Status post fall. HISTORY OF PRESENT ILLNESS: This 85-year-old Qat[place] woman was taking care of her 16 [...] 2 diabetes. SOCIAL HISTORY: Patient immigrated from [facility] with her by way of 10 [...] included. Critical Care Time: 35 minutes Gertrudis Beckford, DO GERTRUDIS BECKFORD, DO GH/MedQ Job #: (more content not included)...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 She had fallen. It is [...] levels of other ser (more content not included)...[facility]01-20-2022 NotePatient: YUSUF MEDINA Age: 85 years [...] unknown mechanism, hypothermia Plan: warm, CT eval [facility]08-31-2021 History of Present illness Narrative* Giovanny [...] PERIPHERAL IV DATA: Not applicable SIGNED BY: Giovanny Salmon RT(R) July 14, 2021 9:01 AM documented in this encounterMercy Health [facility] Hospital07-12-2017 History of Past illness Narrative* Problem [...] this encounter (statuses as of 02/18/2022) [facility] of Past illness Narrative* Problem [...] this encounter (statuses as of 02/26/2022) [facility] of Past illness Narrative* Problem [...] this encounter (statuses as of 03/22/2022) [facility] History of Past illness Narrative* Problem [...] this encounter (statuses as of 03/25/2022) [facility]* Diagnosis Type 2 diabetes mellitus with stage 3 chronic kidney disease, without long-term current use of insulin (HCC) DDD (degenerative disc disease), cervical Degeneration of cervical intervertebral disc [facility] DDD (degenerative disc disease), cervical Degeneration of cervical intervertebral disc [facility] Diagnosis Essential hypertension Unspecified essential hypertension [facility]* Diagnosis Acute cystitis without hematuria- Primary [...] not elsewhere classified [facility]* Diagnosis Screening for colon cancer- Primary Special screening for malignant neoplasms, colon [facility] Diagnosis Iron deficiency anemia, unspecified iron deficiency anemia type- Primary [facility]* Diagnosis Iron deficiency anemia, unspecified [...] kidney disease (HCC) [facility]* Diagnosis Gastroesophageal reflux disease without esophagitis Esophageal reflux [facility]* Diagnosis Type 2 diabetes mellitus with stage 3 chronic kidney disease, without long-term current use of insulin (HCC) [facility]* Diagnosis Diabetes mellitus, non-insulin dependent [...] diabetes mellitus (HCC) [facility]* Diagnosis Diabetes mellitus, non-insulin dependent (NIDDM or type II) (HCC)- Primary [facility]* Diagnosis Essential hypertension Unspecified essential hypertension documented in this encounter [facility]* Diagnosis Pain in both hands- Primary Pain in both wrists Pain in joint, forearm Leukocytosis, unspecified type Type 2 diabetes mellitus with stage 3 chronic kidney disease, without long-term current use of insulin, unspecified whether stage 3a or 3b CKD (HCC) Muscular deconditioning Muscular wasting and disuse atrophy, not elsewhere classified documented in this encounter [facility] note* Diagnosis Diabetes mellitus, non-insulin dependent (NIDDM or type II) (HCC)- Primary Essential hypertension Unspecified essential hypertension CKD stage 3 due to type 2 diabetes mellitus (HCC) documented in this encounter [facility] note* Diagnosis Diabetes mellitus, non-insulin dependent (NIDDM or type II) (HCC)- Primary CKD stage 3 due to type 2 diabetes mellitus (HCC) [facility]* Diagnosis Diabetes mellitus, non-insulin dependent (NIDDM or type II) (HCC) [facility]* Diagnosis Diabetes mellitus, non-insulin dependent (NIDDM or type II) (HCC) [facility]* Diagnosis Gastroesophageal reflux disease without esophagitis Esophageal reflux documented [facility]* Diagnosis Diabetes mellitus, non-insulin dependent (NIDDM or type II) (HCC)- Primary [facility]* Diagnosis Diabetes mellitus, non-insulin dependent (NIDDM or type II) (HCC) documented in this encounter [facility] note* Diagnosis Essential hypertension Unspecified essential hypertension documented in this encounter [facility] note* Diagnosis Essential hypertension Unspecified essential hypertension [facility] Diagnosis Gastroesophageal reflux disease without esophagitis Esophageal reflux documented in this encounter [facility] note* Diagnosis Diabetes mellitus, non-insulin dependent (NIDDM or type II) (HCC)- Primary Hyperlipidemia associated with type 2 diabetes mellitus (HCC) (HCC) Essential hypertension Unspecified essential hypertension documented in this encounter [facility] note* Diagnosis Type 2 diabetes mellitus without retinopathy (HCC)- Primary Type II or unspecified type diabetes mellitus without mention of complication, not stated as uncontrolled Pseudophakia Lens replaced by other means [facility] Diagnosis Type 2 diabetes mellitus with stage 3 chronic kidney disease, without long-term current use of insulin (HCC) [facility] Diagnosis Diabetes mellitus, non-insulin dependent (NIDDM or type II) (HCC) [facility] Diagnosis Essential hypertension- Primary Unspecified essential [...] anemia type [facility] Diagnosis Essential hypertension Unspecified essential hypertension [facility]* Diagnosis Generalized weakness- Primary Other malaise and fatigue Headache, unspecified headache type Leukocytosis, unspecified type CKD stage 3 due to type 2 diabetes mellitus (HCC) Normocytic anemia Anemia, unspecified Essential hypertension Unspecified essential hypertension Insomnia Insomnia, unspecified Arthralgia, unspecified joint [facility] Diagnosis Pain Generalized pain [facility]* Diagnosis Leukocytosis, unspecified type- Primary [facility] Diagnosis Right ankle swelling Effusion of ankle and foot joint [facility]* Diagnosis Right ankle swelling- Primary Effusion of ankle and foot joint Closed nondisplaced fracture of right calcaneus, unspecified portion of calcaneus, initial encounter [facility] Diagnosis Right ankle swelling Effusion of ankle and foot joint [facility] Diagnosis Pain in joint involving right ankle and foot [facility] Diagnosis Right ankle swelling Effusion of ankle and foot joint Closed nondisplaced fracture of right calcaneus, unspecified portion of calcaneus, initial encounter [facility]* Diagnosis Leukocytosis, unspecified type- Primary Normocytic anemia Anemia, unspecified Right ankle swelling Effusion of ankle and foot joint Right ankle swelling Effusion of ankle and foot joint Right ankle swelling Effusion of ankle and foot joint [facility]* Diagnosis Medicare annual wellness visit, [...] Leukocytosis, unspecified type [facility] Diagnosis Right ankle swelling- Primary Effusion of ankle and foot joint Chronic pain of right ankle [facility] Diagnosis Right ankle swelling Effusion of ankle and foot joint [facility] Diagnosis Chronic pain of right ankle- Primary [facility]* Diagnosis Normocytic anemia- Primary Anemia, unspecified Leukocytosis, unspecified type [facility] Diagnosis Chronic pain of right ankle [facility]* Diagnosis Essential hypertension Unspecified essential hypertension [facility]* Diagnosis 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)- Primary Ulcer of ankle [facility] Diagnosis Pseudogout- Primary Other disorder of calcium metabolism Ankle swelling, right Medication monitoring encounter Encounter for therapeutic drug monitoring [facility]* Diagnosis Non-pressure chronic ulcer of [...] disease (HCC) [facility]* Diagnosis Pressure injury of right ankle, stage 3 (HCC)- Primary [facility]* Diagnosis Hyperlipidemia with target LDL less than 100 Other and unspecified hyperlipidemia [facility]* Diagnosis Leukocytosis, unspecified type- Primary Normocytic anemia Anemia, unspecified Vitamin B6 deficiency Cellulitis of right ankle documented in this encounter [facility] noteNo assessment information availableWTuscarawas Hospital Work Phone: Evaluation note* Diagnosis 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)- Primary Ulcer of ankle documented in this encounter [facility] note* Diagnosis Abnormal finding of diagnostic imaging- Primary Other nonspecific (abnormal) findings on radiological and other examinations of body structure documented in this encounter [facility] for referral (narrative)* Diagnostic Procedure Only (Routine) - Closed Specialty Diagnoses / Procedures Referred By Contac t Referred To Contact XR IMAGING Diagnoses Pain Procedures XR SHOULDER GENERAL 3V OR MORE AP/TRUE AP/OTHER LT X-RAY SHOULDER COMPLET [place] [address] [place] [address] [place] [address] [place] [address] Referral ID Status Reason Start Date Expiration Date V isits Requested Visits Authorized [id number] Closed Auto-Generate d Referral 07/09/2021 08/08/2022 1 1 [facility] for referral (narrative)* Diagnostic Procedure Only (Routine) - Closed Specialty Diagnoses / Procedures Referred By Contac t Referred To Contact XR IMAGING Diagnoses Right ankle swelling Procedures XR ANKLE GENERAL 3V AP/LAT/OBL RIGHT RADEX ANKLE COMPLETE MINIMUM 3 [place] [address] [place] [address] [place] [address] Referral ID Status Reason Start Date Expiration Date V isits Requested Visits Authorized [id number] Closed Auto-Generate d Referral 09/17/2024 10/17/2025 1 1 [facility] (narrative)* Diagnostic Procedure Only (Urgent) - Closed Specialty Diagnoses / Procedures Referred By Contac t Referred To Contact US IMAGING Diagnoses Right ankle swelling Procedures US DVT LOWER RIGHT DUP-SCAN XTR VEINS UNILATERAL/[place] [address] [place] [phone] [place] [address] Referral ID Status Reason Start Date Expiration Date V isits Requested Visits Authorized [id number] Closed Auto-Generate d Referral 09/18/2024 10/17/2025 1 1 [facility] for referral (narrative)* Diagnostic Procedure Only (Routine) - Closed Specialty Diagnoses / Procedures Referred By Contac t Referred To Contact XR IMAGING Diagnoses Right ankle swelling Procedures XR ANKLE GENERAL 3V AP/LAT/OBL RIGHT RADEX ANKLE COMPLETE MINIMUM 3 [place] [address] [address] [place] [phone] [place] [address] Referral ID Status Reason Start Date Expiration Date V isits Requested Visits Authorized [id number] Closed Auto-Generate d Referral 09/17/2024 10/17/2025 1 1 * Diagnostic Procedure Only (Urgent) - Closed Specialty Diagnoses / Procedures Referred By Contac t Referred To Contact US IMAGING Diagnoses Right ankle swelling Procedures US DVT LOWER RIGHT DUP-SCAN XTR VEINS UNILATERAL/[place] [address] [address] [phone] [place] [address] Referral ID Status Reason Start Date Expiration Date V isits Requested Visits Authorized [id number] Closed Auto-Generate d Referral 09/18/2024 10/17/2025 1 1 [facility] for referral (narrative)No reason for referral information availableWTuscarawas Hospital Work Phone: Reason for visit Narrative* Diagnostic Procedure Only (Routine) - Closed Specialty Diagnoses / Procedures Referred By Contac t Referred To Contact XR IMAGING Diagnoses Pain in joint involving right ankle and foot Procedures XR CALCANEUS 2V AXIAL/LAT RIGHT RADEX CALCANEUS MINIMUM 2 VIEWS Simone Kevin MD [address] [place] [address] [place] [address] Referral ID Status Reason Start Date Expiration Date V isits Requested Visits Authorized [id number] Closed Auto-Generate d Referral 09/19/2024 10/19/2025 1 1 [facility] Summary Purpose Family History No Family History Records FoundNo Family History Records FoundNo Family History Records FoundNo Family History Records Found Advance Directives No Advanced Directives Records FoundDocuments on File Type Date Recorded 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 Advance Directive(s) 2024 10:00 AM [...] Documents on File Type Date Recorded 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 Advance Directive(s) 08/28/2015 9:03 PM Date Activated Date Inactivated Comments 03/07/2023 4:44 AM 03/09/2023 7:53 PM Date Activated Date Inactivated Comments 03/24/2022 3:23 PM 03/26/2022 7:51 PM Latest Code Status on File Code Status Date Activated Date Inactivated Comments Full Code 03/24/2022 3:23 PM 03/26/2022 7:51 PM Full Code Order Discussed With: Patient Documents on File Type Date Recorded 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 Advance Directive(s) Advance Directive(s) 05/19/2020 10:04 PM Advance Directive(s) 03/11/2017 1:34 PM Advance Directive(s) 12/10/2016 5:24 PM Advance Directive(s) 04/17/2016 11:22 AM Advance Directive(s) 08/28/2015 9:03 PM Documents on File Type Date Recorded 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 Advance Directive(s) Advance Directive(s) 03/23/2022 11:09 PM Advance Directive(s) 05/19/2020 10:04 PM Advance Directive(s) 03/11/2017 1:34 PM Advance Directive(s) 12/10/2016 5:24 PM Advance Directive(s) 04/17/2016 11:22 AM Advance Directive(s) 08/28/2015 9:03 PM Latest Code Status on File Code Status Date Activated Date Inactivated Comments Full Code 03/24/2022 3:23 PM Documents on File Type Date Recorded 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 Advance Directive(s) Advance Directive(s) 03/27/2022 12:20 AM Advance Directive(s) 03/23/2022 11:09 PM Advance Directive(s) 05/19/2020 10:04 PM Advance Directive(s) 03/11/2017 1:34 PM Advance Directive(s) 12/10/2016 5:24 PM Advance Directive(s) 04/17/2016 11:22 AM Advance Directive(s) 08/28/2015 9:03 PM Documents on File Type Date Recorded 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 Advance Directive(s) 08/28/2015 9:03 PM [...] Activated Date Inactivated Comments 11/22/2024 3:14 AM Documents on File Type Date Recorded 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 Advance Directive(s) 2024 10:00 AM Date Activated Date Inactivated Comments 11/22/2024 3:14 AM 12/12/2024 5:17 PM Date Activated Date Inactivated Comments 03/07/2023 4:44 AM 03/09/2023 7:53 PM Date Activated Date Inactivated Comments 03/24/2022 3:23 PM 03/26/2022 7:51 PM Question Answer Comments Full Code Order Discussed With: Patient Health Concerns Infection Onset Date Last Indicated Resolved Time COVID-19 Rule-Out 03/24/2022 03/24/2022 03/24/2022 1:31 AM EDT Reason for Referral Specialty Diagnoses / Procedures Referred By Contac t Referred To Contact Ophthalmology Diagnoses Screening for diabetic retinopathy Procedures CONSULT TO OPHTHALMOLOGY OFFICE/OUTPATIENT [facility] 60-[place] [address] [place] [address] Referral ID Status Reason Start Date Expiration Date Visits Requested Visits Authorized [id number] Pending Review PCP Requested Referral 2 10/23/2023 1 1 Specialty Diagnoses / Procedures Referred By Contac t Referred To Contact [facility] Diagnoses Muscular deconditioning Procedures CONSULT TO PHYSICAL THERAPY PHYSICAL THERAPY EVALUATION HIGH COMPLEX 45 MINS 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, 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 [address] [place] [address] [facility] [place] [address] Referral ID Status Reason Start Date Expiration Date Visits Requested Visits Authorized [id number] Pending Review Auto-Generat ed Referral 03/17/2023 03/16/2024 1 1 Specialty Diagnoses / Procedures Referred By Contac t Referred To Contact [facility] Diagnoses Pain in both hands Pain in both wrists Procedures 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 THERAPY EVAL HIGH COMPLEX 60 MINS Willie Kaur APRN.FARM MARKETER [address] [place] [address] [facility] [place] [address] [place] [address] Referral ID Status Reason Start Date Expiration Date Visits Requested Visits Authorized [id number] Pending Review Auto-Generat ed Referral 03/17/2023 03/16/2024 1 1 Specialty Diagnoses / Procedures Referred By Contac t Referred To Contact Diagnoses Leukocytosis, unspecified type Procedures CONSULT TO HEMATOLOGY/ONCOLOGY OFFICE/OUTPATIENT [facility] [address] [place] [address] [place] [phone] Referral ID Status Reason Start Date Expiration Date Visits Requested Visits Authorized [id number] Authorized PCP Requested Referral 09/04/2025 1 1 Specialty Diagnoses / Procedures Referred By Contac t Referred To Contact Orthopedics Diagnoses Right ankle swelling Closed nondisplaced fracture of right calcaneus, unspecified portion of calcaneus, initial encounter Procedures CONSULT PANEL TO ORTHOPAEDICS OFFICE/OUTPATIENT [facility] [address] [place] [address] [phone] Referral ID Status Reason Start Date Expiration Date Visits Requested Visits Authorized [id number] Authorized PCP Requested Referral 09/18/2024 09/18/2025 1 1 Specialty Diagnoses / Procedures Referred By Contac t Referred To Contact MR IMAGING Diagnoses Chronic pain of right ankle Procedures MRI ANKLE WO IVCON RIGHT MRI ANY JT LOWER EXTREM W/O CONTRAST MATRL Simone Kevin MD [address] [place] [address] [facility] [place] [address] Referral ID Status Reason Start Date Expiration Date Visits Requested Visits Authorized [id number] Authorized Auto-Generat ed Referral 12/01/2025 1 1 Specialty Diagnoses / Procedures Referred By Contac t Referred To Contact XR IMAGING Diagnoses Right ankle swelling Procedures XR FOOT GENERAL 3V AP/LAT/OBL RIGHT RADEX FOOT COMPLETE MINIMUM 3 VIEWS Simone Kevin MD [address] [place] [address] X[facility] [place] [address] Referral ID Status Reason Start Date Expiration Date V isits Requested Visits Authorized [id number] Closed Auto-Generate d Referral 11/01/2024 12/01/2025 1 1 Specialty Diagnoses / Procedures Referred By Contac t Referred To Contact XR IMAGING Diagnoses Right ankle swelling Procedures XR ANKLE GENERAL 3V AP/LAT/OBL RIGHT RADEX ANKLE COMPLETE MINIMUM 3 VIEWS Simone Kevin MD [address] [place] [phone] [facility] [place] [address] Referral ID Status Reason Start Date Expiration Date V isits Requested Visits Authorized [id number] Closed Auto-Generate d Referral 11/01/2024 12/01/2025 1 1 Referral ID Status Reason Start Date Expiration Date V isits Requested Visits Authorized [id number] Closed Auto-Generate d Referral 11/01/2024 12/01/2025 1 1 Chief Complaint and Reason for Visit Chief Complaint Admit Date LAB WORK December 17, 2024 4 :00am LAB WORK December 24, 2024 4:00am LABWORK 2024 5:00am LABWORK January 07, 2025 5:00am GROUP HOME LAB WORK January 15, 2025 5: 00am Chief Complaint Admit Date LAB WORK December 17, 2024 4 :00am LAB WORK December 24, 2024 4:00am LABWORK 2024 5:00am LABWORK January 07, 2025 5:00am GROUP HOME LAB WORK January 15, 2025 5: 00am GROUP HOME LAB WORK February 04, 2025 5 :00am Chief Complaint Admit Date LAB WORK December 17, 2024 4 :00am LAB WORK December 24, 2024 4:00am LABWORK 2024 5:00am LABWORK January 07, 2025 5:00am GROUP HOME LAB WORK January 15, 2025 5: 00am GROUP HOME LAB WORK February 04, 2025 5 :00am GROUP HOME LAB WORK March 04, 2025 5 :00am Chief Complaint Admit Date LAB WORK December 24, 2024 4:00am LABWORK 2024 5:00am LABWORK January 07, 2025 5:00am GROUP HOME LAB WORK January 15, 2025 5: 00am GROUP HOME LAB WORK February 04, 2025 5 :00am GROUP HOME LAB WORK March 04, 2025 5 :00am GROUP HOME LAB WORK March 12, 2025 4 :00am LABWORK April 01, 2025 5:00a m Chief Complaint Admit Date LAB WORK December 24, 2024 4:00am LABWORK 2024 5:00am LABWORK January 07, 2025 5:00am GROUP HOME LAB WORK January 15, 2025 5: 00am GROUP HOME LAB WORK February 04, 2025 5 :00am GROUP HOME LAB WORK March 04, 2025 5 :00am GROUP HOME LAB WORK March 12, 2025 4 :00am Additional Source Comments INFORMATION SOURCE (unrecogn ized section and content) DATE CREATED AUTHOR 12/10/2021 [facility] DATE CREATED AUTHOR AUTHOR'S ORGANIZ ATION 02/16/2025 [facility] DATE CREATED AUTHOR AUTHOR'S ORGANIZ ATION 07/07/2025 [facility] DATE CREATED AUTHOR AUTHOR'S ORGANIZ ATION 07/07/2025 [facility] Source Comments (unrecognize d section and content) In the event this informatio n is protected by the Federal Confidentiality of Alcohol and Drug Abuse Patient Records regulations: The Federal rules restrict any use of the information to criminally investigate or prosecute any alcohol or drug abuse patient.[facility] the event this information is protected by the Federal Confidentiality of Alcohol and Drug Abuse Patient Records regulations: The Federal rules restrict any use of the information to criminally investigate or prosecute any alcohol or drug abuse patient.[facility] HospitalIn the event this information is protected by the Federal Confidentiality of Alcohol and Drug Abuse Patient Records regulations: The Federal rules restrict any use of the information to criminally investigate or prosecute any alcohol or drug abuse patient.[facility] HospitalIn the event this information is protected by the Federal Confidentiality of Alcohol and Drug Abuse Patient Records regulations: The Federal rules restrict any use of the information to criminally investigate or prosecute any alcohol or drug abuse patient.[facility] HospitalIn the event this information is protected by the Federal Confidentiality of Alcohol and Drug Abuse Patient Records regulations: The Federal rules restrict any use of the information to criminally investigate or prosecute any alcohol or drug abuse patient.[facility] HospitalIn the event this information is protected by the Federal Confidentiality of Alcohol and Drug Abuse Patient Records regulations: The Federal rules restrict any use of the information to criminally investigate or prosecute any alcohol or drug abuse patient.[facility] HospitalIn the event this information is protected by the Federal Confidentiality of Alcohol and Drug Abuse Patient Records regulations: The Federal rules restrict any use of the information to criminally investigate or prosecute any alcohol or drug abuse patient.[facility] HospitalIn the event this information is protected by the Federal Confidentiality of Alcohol and Drug Abuse Patient Records regulations: The Federal rules restrict any use of the information to criminally investigate or prosecute any alcohol or drug abuse patient.[facility] HospitalIn the event this information is protected by the Federal Confidentiality of Alcohol and Drug Abuse Patient Records regulations: The Federal rules restrict any use of the information to criminally investigate or prosecute any alcohol or drug abuse patient.[facility] HospitalIn the event this information is protected by the Federal Confidentiality of Alcohol and Drug Abuse Patient Records regulations: The Federal rules restrict any use of the information to criminally investigate or prosecute any alcohol or drug abuse patient.[facility] HospitalIn the event this information is protected by the Federal Confidentiality of Alcohol and Drug Abuse Patient Records regulations: The Federal rules restrict any use of the information to criminally investigate or prosecute any alcohol or drug abuse patient.[facility] HospitalIn the event this information is protected by the Federal Confidentiality of Alcohol and Drug Abuse Patient Records regulations: The Federal rules restrict any use of the information to criminally investigate or prosecute any alcohol or drug abuse patient.[facility] HospitalIn the event this information is protected by the Federal Confidentiality of Alcohol and Drug Abuse Patient Records regulations: The Federal rules restrict any use of the information to criminally investigate or prosecute any alcohol or drug abuse patient.[facility] HospitalIn the event this information is protected by the Federal Confidentiality of Alcohol and Drug Abuse Patient Records regulations: The Federal rules restrict any use of the information to criminally investigate or prosecute any alcohol or drug abuse patient.[facility] HospitalIn the event this information is protected by the Federal Confidentiality of Alcohol and Drug Abuse Patient Records regulations: The Federal rules restrict any use of the information to criminally investigate or prosecute any alcohol or drug abuse patient.[facility] HospitalIn the event this information is protected by the Federal Confidentiality of Alcohol and Drug Abuse Patient Records regulations: The Federal rules restrict any use of the information to criminally investigate or prosecute any alcohol or drug abuse patient.[facility] HospitalIn the event this information is protected by the Federal Confidentiality of Alcohol and Drug Abuse Patient Records regulations: The Federal rules restrict any use of the information to criminally investigate or prosecute any alcohol or drug abuse patient.[facility] HospitalIn the event this information is protected by the Federal Confidentiality of Alcohol and Drug Abuse Patient Records regulations: The Federal rules restrict any use of the information to criminally investigate or prosecute any alcohol or drug abuse patient.[facility] HospitalIn the event this information is protected by the Federal Confidentiality of Alcohol and Drug Abuse Patient Records regulations: The Federal rules restrict any use of the information to criminally investigate or prosecute any alcohol or drug abuse patient.[facility] HospitalIn the event this information is protected by the Federal Confidentiality of Alcohol and Drug Abuse Patient Records regulations: The Federal rules restrict any use of the information to criminally investigate or prosecute any alcohol or drug abuse patient.[facility] HospitalIn the event this information is protected by the Federal Confidentiality of Alcohol and Drug Abuse Patient Records regulations: The Federal rules restrict any use of the information to criminally investigate or prosecute any alcohol or drug abuse patient.[facility] HospitalIn the event this information is protected by the Federal Confidentiality of Alcohol and Drug Abuse Patient Records regulations: The Federal rules restrict any use of the information to criminally investigate or prosecute any alcohol or drug abuse patient.[facility] HospitalIn the event this information is protected by the Federal Confidentiality of Alcohol and Drug Abuse Patient Records regulations: The Federal rules restrict any use of the information to criminally investigate or prosecute any alcohol or drug abuse patient.[facility] HospitalIn the event this information is protected by the Federal Confidentiality of Alcohol and Drug Abuse Patient Records regulations: The Federal rules restrict any use of the information to criminally investigate or prosecute any alcohol or drug abuse patient.[facility] HospitalIn the event this information is protected by the Federal Confidentiality of Alcohol and Drug Abuse Patient Records regulations: The Federal rules restrict any use of the information to criminally investigate or prosecute any alcohol or drug abuse patient.[facility] HospitalIn the event this information is protected by the Federal Confidentiality of Alcohol and Drug Abuse Patient Records regulations: The Federal rules restrict any use of the information to criminally investigate or prosecute any alcohol or drug abuse patient.[facility] HospitalIn the event this information is protected by the Federal Confidentiality of Alcohol and Drug Abuse Patient Records regulations: The Federal rules restrict any use of the information to criminally investigate or prosecute any alcohol or drug abuse patient.[facility] HospitalIn the event this information is protected by the Federal Confidentiality of Alcohol and Drug Abuse Patient Records regulations: The Federal rules restrict any use of the information to criminally investigate or prosecute any alcohol or drug abuse patient.[facility] HospitalIn the event this information is protected by the Federal Confidentiality of Alcohol and Drug Abuse Patient Records regulations: The Federal rules restrict any use of the information to criminally investigate or prosecute any alcohol or drug abuse patient.[facility] HospitalIn the event this information is protected by the Federal Confidentiality of Alcohol and Drug Abuse Patient Records regulations: The Federal rules restrict any use of the information to criminally investigate or prosecute any alcohol or drug abuse patient.[facility] HospitalIn the event this information is protected by the Federal Confidentiality of Alcohol and Drug Abuse Patient Records regulations: The Federal rules restrict any use of the information to criminally investigate or prosecute any alcohol or drug abuse patient.[facility] HospitalIn the event this information is protected by the Federal Confidentiality of Alcohol and Drug Abuse Patient Records regulations: The Federal rules restrict any use of the information to criminally investigate or prosecute any alcohol or drug abuse patient.[facility] HospitalIn the event this information is protected by the Federal Confidentiality of Alcohol and Drug Abuse Patient Records regulations: The Federal rules restrict any use of the information to criminally investigate or prosecute any alcohol or drug abuse patient.[facility] HospitalIn the event this information is protected by the Federal Confidentiality of Alcohol and Drug Abuse Patient Records regulations: The Federal rules restrict any use of the information to criminally investigate or prosecute any alcohol or drug abuse patient.[facility] HospitalIn the event this information is protected by the Federal Confidentiality of Alcohol and Drug Abuse Patient Records regulations: The Federal rules restrict any use of the information to criminally investigate or prosecute any alcohol or drug abuse patient.[facility] HospitalIn the event this information is protected by the Federal Confidentiality of Alcohol and Drug Abuse Patient Records regulations: The Federal rules restrict any use of the information to criminally investigate or prosecute any alcohol or drug abuse patient.[facility] HospitalIn the event this information is protected by the Federal Confidentiality of Alcohol and Drug Abuse Patient Records regulations: The Federal rules restrict any use of the information to criminally investigate or prosecute any alcohol or drug abuse patient.[facility] HospitalIn the event this information is protected by the Federal Confidentiality of Alcohol and Drug Abuse Patient Records regulations: The Federal rules restrict any use of the information to criminally investigate or prosecute any alcohol or drug abuse patient.[facility] HospitalIn the event this information is protected by the Federal Confidentiality of Alcohol and Drug Abuse Patient Records regulations: The Federal rules restrict any use of the information to criminally investigate or prosecute any alcohol or drug abuse patient.[facility] HospitalIn the event this information is protected by the Federal Confidentiality of Alcohol and Drug Abuse Patient Records regulations: The Federal rules restrict any use of the information to criminally investigate or prosecute any alcohol or drug abuse patient.[facility] HospitalIn the event this information is protected by the Federal Confidentiality of Alcohol and Drug Abuse Patient Records regulations: The Federal rules restrict any use of the information to criminally investigate or prosecute any alcohol or drug abuse patient.[facility] HospitalIn the event this information is protected by the Federal Confidentiality of Alcohol and Drug Abuse Patient Records regulations: The Federal rules restrict any use of the information to criminally investigate or prosecute any alcohol or drug abuse patient.[facility] HospitalIn the event this information is protected by the Federal Confidentiality of Alcohol and Drug Abuse Patient Records regulations: The Federal rules restrict any use of the information to criminally investigate or prosecute any alcohol or drug abuse patient.[facility] HospitalIn the event this information is protected by the Federal Confidentiality of Alcohol and Drug Abuse Patient Records regulations: The Federal rules restrict any use of the information to criminally investigate or prosecute any alcohol or drug abuse patient.[facility] HospitalIn the event this information is protected by the Federal Confidentiality of Alcohol and Drug Abuse Patient Records regulations: The Federal rules restrict any use of the information to criminally investigate or prosecute any alcohol or drug abuse patient.[facility] HospitalIn the event this information is protected by the Federal Confidentiality of Alcohol and Drug Abuse Patient Records regulations: The Federal rules restrict any use of the information to criminally investigate or prosecute any alcohol or drug abuse patient.[facility] HospitalIn the event this information is protected by the Federal Confidentiality of Alcohol and Drug Abuse Patient Records regulations: The Federal rules restrict any use of the information to criminally investigate or prosecute any alcohol or drug abuse patient.[facility] HospitalIn the event this information is protected by the Federal Confidentiality of Alcohol and Drug Abuse Patient Records regulations: The Federal rules restrict any use of the information to criminally investigate or prosecute any alcohol or drug abuse patient.[facility] HospitalIn the event this information is protected by the Federal Confidentiality of Alcohol and Drug Abuse Patient Records regulations: The Federal rules restrict any use of the information to criminally investigate or prosecute any alcohol or drug abuse patient.[facility] HospitalIn the event this information is protected by the Federal Confidentiality of Alcohol and Drug Abuse Patient Records regulations: The Federal rules restrict any use of the information to criminally investigate or prosecute any alcohol or drug abuse patient.[facility] HospitalIn the event this information is protected by the Federal Confidentiality of Alcohol and Drug Abuse Patient Records regulations: The Federal rules restrict any use of the information to criminally investigate or prosecute any alcohol or drug abuse patient.[facility] HospitalIn the event this information is protected by the Federal Confidentiality of Alcohol and Drug Abuse Patient Records regulations: The Federal rules restrict any use of the information to criminally investigate or prosecute any alcohol or drug abuse patient.[facility] HospitalIn the event this information is protected by the Federal Confidentiality of Alcohol and Drug Abuse Patient Records regulations: The Federal rules restrict any use of the information to criminally investigate or prosecute any alcohol or drug abuse patient.[facility] HospitalIn the event this information is protected by the Federal Confidentiality of Alcohol and Drug Abuse Patient Records regulations: The Federal rules restrict any use of the information to criminally investigate or prosecute any alcohol or drug abuse patient.[facility] HospitalIn the event this information is protected by the Federal Confidentiality of Alcohol and Drug Abuse Patient Records regulations: The Federal rules restrict any use of the information to criminally investigate or prosecute any alcohol or drug abuse patient.[facility] HospitalIn the event this information is protected by the Federal Confidentiality of Alcohol and Drug Abuse Patient Records regulations: The Federal rules restrict any use of the information to criminally investigate or prosecute any alcohol or drug abuse patient.[facility] HospitalIn the event this information is protected by the Federal Confidentiality of Alcohol and Drug Abuse Patient Records regulations: The Federal rules restrict any use of the information to criminally investigate or prosecute any alcohol or drug abuse patient.[facility] HospitalIn the event this information is protected by the Federal Confidentiality of Alcohol and Drug Abuse Patient Records regulations: The Federal rules restrict any use of the information to criminally investigate or prosecute any alcohol or drug abuse patient.[facility] HospitalIn the event this information is protected by the Federal Confidentiality of Alcohol and Drug Abuse Patient Records regulations: The Federal rules restrict any use of the information to criminally investigate or prosecute any alcohol or drug abuse patient.[facility] HospitalIn the event this information is protected by the Federal Confidentiality of Alcohol and Drug Abuse Patient Records regulations: The Federal rules restrict any use of the information to criminally investigate or prosecute any alcohol or drug abuse patient.[facility] HospitalIn the event this information is protected by the Federal Confidentiality of Alcohol and Drug Abuse Patient Records regulations: The Federal rules restrict any use of the information to criminally investigate or prosecute any alcohol or drug abuse patient.[facility] HospitalIn the event this information is protected by the Federal Confidentiality of Alcohol and Drug Abuse Patient Records regulations: The Federal rules restrict any use of the information to criminally investigate or prosecute any alcohol or drug abuse patient.[facility] HospitalIn the event this information is protected by the Federal Confidentiality of Alcohol and Drug Abuse Patient Records regulations: The Federal rules restrict any use of the information to criminally investigate or prosecute any alcohol or drug abuse patient.[facility] HospitalIn the event this information is protected by the Federal Confidentiality of Alcohol and Drug Abuse Patient Records regulations: The Federal rules restrict any use of the information to criminally investigate or prosecute any alcohol or drug abuse patient.[facility] HospitalIn the event this information is protected by the Federal Confidentiality of Alcohol and Drug Abuse Patient Records regulations: The Federal rules restrict any use of the information to criminally investigate or prosecute any alcohol or drug abuse patient.[facility] HospitalIn the event this information is protected by the Federal Confidentiality of Alcohol and Drug Abuse Patient Records regulations: The Federal rules restrict any use of the information to criminally investigate or prosecute any alcohol or drug abuse patient.[facility] HospitalIn the event this information is protected by the Federal Confidentiality of Alcohol and Drug Abuse Patient Records regulations: The Federal rules restrict any use of the information to criminally investigate or prosecute any alcohol or drug abuse patient.[facility] HospitalIn the event this information is protected by the Federal Confidentiality of Alcohol and Drug Abuse Patient Records regulations: The Federal rules restrict any use of the information to criminally investigate or prosecute any alcohol or drug abuse patient.[facility] HospitalIn the event this information is protected by the Federal Confidentiality of Alcohol and Drug Abuse Patient Records regulations: The Federal rules restrict any use of the information to criminally investigate or prosecute any alcohol or drug abuse patient.[facility] HospitalIn the event this information is protected by the Federal Confidentiality of Alcohol and Drug Abuse Patient Records regulations: The Federal rules restrict any use of the information to criminally investigate or prosecute any alcohol or drug abuse patient.[facility] HospitalIn the event this information is protected by the Federal Confidentiality of Alcohol and Drug Abuse Patient Records regulations: The Federal rules restrict any use of the information to criminally investigate or prosecute any alcohol or drug abuse patient.[facility] HospitalIn the event this information is protected by the Federal Confidentiality of Alcohol and Drug Abuse Patient Records regulations: The Federal rules restrict any use of the information to criminally investigate or prosecute any alcohol or drug abuse patient.[facility] HospitalIn the event this information is protected by the Federal Confidentiality of Alcohol and Drug Abuse Patient Records regulations: The Federal rules restrict any use of the information to criminally investigate or prosecute any alcohol or drug abuse patient.[facility] HospitalIn the event this information is protected by the Federal Confidentiality of Alcohol and Drug Abuse Patient Records regulations: The Federal rules restrict any use of the information to criminally investigate or prosecute any alcohol or drug abuse patient.[facility] HospitalIn the event this information is protected by the Federal Confidentiality of Alcohol and Drug Abuse Patient Records regulations: The Federal rules restrict any use of the information to criminally investigate or prosecute any alcohol or drug abuse patient.[facility] HospitalIn the event this information is protected by the Federal Confidentiality of Alcohol and Drug Abuse Patient Records regulations: The Federal rules restrict any use of the information to criminally investigate or prosecute any alcohol or drug abuse patient.[facility] HospitalIn the event this information is protected by the Federal Confidentiality of Alcohol and Drug Abuse Patient Records regulations: The Federal rules restrict any use of the information to criminally investigate or prosecute any alcohol or drug abuse patient.[facility] HospitalIn the event this information is protected by the Federal Confidentiality of Alcohol and Drug Abuse Patient Records regulations: The Federal rules restrict any use of the information to criminally investigate or prosecute any alcohol or drug abuse patient.[facility] HospitalIn the event this information is protected by the Federal Confidentiality of Alcohol and Drug Abuse Patient Records regulations: The Federal rules restrict any use of the information to criminally investigate or prosecute any alcohol or drug abuse patient.[facility] HospitalIn the event this information is protected by the Federal Confidentiality of Alcohol and Drug Abuse Patient Records regulations: The Federal rules restrict any use of the information to criminally investigate or prosecute any alcohol or drug abuse patient.[facility] HospitalIn the event this information is protected by the Federal Confidentiality of Alcohol and Drug Abuse Patient Records regulations: The Federal rules restrict any use of the information to criminally investigate or prosecute any alcohol or drug abuse patient.[facility] HospitalIn the event this information is protected by the Federal Confidentiality of Alcohol and Drug Abuse Patient Records regulations: The Federal rules restrict any use of the information to criminally investigate or prosecute any alcohol or drug abuse patient.[facility] HospitalIn the event this information is protected by the Federal Confidentiality of Alcohol and Drug Abuse Patient Records regulations: The Federal rules restrict any use of the information to criminally investigate or prosecute any alcohol or drug abuse patient.[facility] HospitalIn the event this information is protected by the Federal Confidentiality of Alcohol and Drug Abuse Patient Records regulations: The Federal rules restrict any use of the information to criminally investigate or prosecute any alcohol or drug abuse patient.[facility] HospitalIn the event this information is protected by the Federal Confidentiality of Alcohol and Drug Abuse Patient Records regulations: The Federal rules restrict any use of the information to criminally investigate or prosecute any alcohol or drug abuse patient.[facility] HospitalIn the event this information is protected by the Federal Confidentiality of Alcohol and Drug Abuse Patient Records regulations: The Federal rules restrict any use of the information to criminally investigate or prosecute any alcohol or drug abuse patient.[facility] HospitalIn the event this information is protected by the Federal Confidentiality of Alcohol and Drug Abuse Patient Records regulations: The Federal rules restrict any use of the information to criminally investigate or prosecute any alcohol or drug abuse patient.[facility] HospitalIn the event this information is protected by the Federal Confidentiality of Alcohol and Drug Abuse Patient Records regulations: The Federal rules restrict any use of the information to criminally investigate or prosecute any alcohol or drug abuse patient.[facility] HospitalIn the event this information is protected by the Federal Confidentiality of Alcohol and Drug Abuse Patient Records regulations: The Federal rules restrict any use of the information to criminally investigate or prosecute any alcohol or drug abuse patient.[facility] HospitalIn the event this information is protected by the Federal Confidentiality of Alcohol and Drug Abuse Patient Records regulations: The Federal rules restrict any use of the information to criminally investigate or prosecute any alcohol or drug abuse patient.[facility] HospitalIn the event this information is protected by the Federal Confidentiality of Alcohol and Drug Abuse Patient Records regulations: The Federal rules restrict any use of the information to criminally investigate or prosecute any alcohol or drug abuse patient.[facility] HospitalIn the event this information is protected by the Federal Confidentiality of Alcohol and Drug Abuse Patient Records regulations: The Federal rules restrict any use of the information to criminally investigate or prosecute any alcohol or drug abuse patient.[facility] HospitalIn the event this information is protected by the Federal Confidentiality of Alcohol and Drug Abuse Patient Records regulations: The Federal rules restrict any use of the information to criminally investigate or prosecute any alcohol or drug abuse patient.[facility] HospitalIn the event this information is protected by the Federal Confidentiality of Alcohol and Drug Abuse Patient Records regulations: The Federal rules restrict any use of the information to criminally investigate or prosecute any alcohol or drug abuse patient.[facility] Reason for Visit (unrecogniz ed section [...] Date Comments Population Health Navigation Outreach 03/13/2024 [facility] Reason Comments Di[facility] Eye Exam Reason Comments Follow Up Reason Onset Date Comments Fatigue 08/13/2024 Reason Comments Hospital Follow Up Reason Comments Radiology XR Specialty Diagnoses / Procedures Referred By Contac t Referred To Contact XR IMAGING Diagnoses Pain Procedures XR SHOULDER GENERAL 3V OR MORE AP/TRUE AP/OTHER LT X-RAY SHOULDER COMPLET [place] [address] [place] [address] [place] [address] [place] [id number] Referral ID Status Reason Start Date Expiration Date V isits Requested Visits Authorized Closed Auto-Generate d Referral 07/09/2021 08/08/2022 1 1 Reason Comments Results Reason Comments Radio Gen [facility]MP Radiology Service Pr ogress NotePATIENT NAME: Yusuf MedinaMRN: [id number] OF SERVICE: September 17, 2024TIME: 4:30 PMPATIENT [...] COMPLETE MINIMUM [address] [place] [address] [place] [address] Xr Imaging [id number] Referral ID Status Reason Start Date Expiration Date V isits Requested Visits Authorized [id number] Closed Auto-Generate d Referral 09/17/2024 10/17/2025 1 1 Reason Comments Results Suspicion for calcan eal bone fracture Reason Comments Radiology US Specialty Diagnoses / Procedures Referred By Contac t Referred To Contact US IMAGING Diagnoses Right ankle swelling Procedures US DVT LOWER RIGHT DUP-SCAN XTR VEINS UNILATERAL/[place] [address] [place] [address] [facility] [place] [id number] Referral ID Status Reason Start Date Expiration Date V isits Requested Visits Authorized [id number] Closed Auto-Generate d Referral 09/18/2024 10/17/2025 1 1 Reason Comments New 8/10 [facility]IN [facility] A ABEL Pain 8/10 [facility] A [facility]EL Specialty Diagnoses / Procedures Referred By Contac t Referred To Contact Orthopedics / ORTHOPAEDIC SURGERY Diagnoses Right ankle swelling Closed nondisplaced fracture of right calcaneus, unspecified portion of calcaneus, initial encounter Procedures CONSULT PANEL TO ORTHOPAEDICS OFFICE/OUTPATIENT [facility] MDM [address] [place] [address] [place] [address] [facility] [address] [place] [address] Referral ID Status Reason Start Date Expiration Date V isits Requested Visits Authorized [id number] Closed PCP Requested Referral 09/18/2024 09/18/2025 1 1 Reason Comments Consult leukocytosis Specialty Diagnoses / Procedures Referred By Contac t Referred To Contact Diagnoses Leukocytosis, unspecified type Procedures CONSULT TO HEMATOLOGY/ONCOLOGY OFFICE/OUTPATIENT [facility] [address] [place] [address] [place] [address] Referral ID Status Reason Start Date Expiration Date V isits Requested Visits Authorized [id number] Closed PCP Requested Referral 09/04/2024 09/04/2025 1 1 Reason Comments Medicare Wellness Exam Reason Comments Follow Up Reason Comments Radio Gen RMP Radiology Service Pr ogress NotePATIENT NAME: Yusuf MedinaMRN: [id number] OF SERVICE: November 01, 2024TIME: 2:15 PMPATIENT [...] COMPLETE MINIMUM 3 VIEWS Simone Kevin MD [address] [place] [address] Xr Imaging [place] [id number] Referral ID Status Reason Start Date Expiration Date V isits Requested Visits Authorized [id number] Closed Auto-Generate d Referral 11/01/2024 12/01/2025 1 1 Reason Comments infection on ankle Right ankle looks in fected Specialty Diagnoses / Procedures Referred By Contac t Referred To Contact MR IMAGING Diagnoses Chronic pain of right ankle Procedures MRI ANKLE WO IVCON RIGHT MRI ANY JT LOWER EXTREM W/O CONTRAST MATRL Simone Kevin MD [address] [place] [address] Mr Imaging [id number] Referral ID Status Reason Start Date Expiration Date V isits Requested Visits Authorized [id number] Closed Auto-Generate d Referral 11/01/2024 12/01/2025 1 [...] Care Teams (unrecognized sec tion and content) Precision Machine Operator Relationship Specialty [place] [address] [place] [address] PCP - General Family Practice 10/05/10 Edenilson Townsend [address] [facility] [place] [address] Consulting Optometry 12/07/17 Precision Machine Operator Relationship Specialty [place] [address] [facility] [place] [address] PCP - General Family Practice 10/05/10 Edenilson Townsend [address] [facility] [place] [address] Consulting Optometry 12/07/17 Precision Machine Operator Relationship Specialty [place] [address] [facility] [place] [address] PCP - General Family Practice 10/05/10 Edenilson Townsend [address] [facility] [place] [address] Consulting Optometry 12/07/17 Precision Machine Operator Relationship Specialty [place] [address] [facility] [place] [address] PCP - General Family Practice 10/05/10 Edenilson Townsend [address] [facility] [place] [address] Consulting Optometry 12/07/17 José Miguel Swanson, [facility] [address] [place] [address] Transitional Care Pharmacist Pharmacy 03/30/22 04/30/22 Katia Farooq, electronic scale subassembler Linter Tender 03/30/22 04/29/22 Precision Machine Operator Relationship Specialty [place] [address] [place] [address] PCP - General Family Practice 10/05/10 Edenilson Townsend [address] [place] [address] Consulting Optometry 12/07/17 José Miguel Swanson, [facility] [address] [place] [address] Transitional Care Pharmacist Pharmacy 03/30/22 04/30/22 Katia Farooq, electronic scale subassembler Linter Tender 03/30/22 04/29/22 Precision Machine Operator Relationship Specialty [place] [address] [place] [address] PCP - General Family Practice 10/05/10 Edenilson Townsend [address] [place] [address] Consulting Optometry 12/07/17 José Miguel Swanson, [facility] [address] [place] [address] Transitional Care Pharmacist Pharmacy 03/30/22 04/30/22 Katia Farooq, electronic scale subassembler Linter Tender 03/30/22 04/29/22 Precision Machine Operator Relationship Specialty [place] [address] [place] [address] PCP - General Family Practice 10/05/10 Edenilson Townsend [address] [place] [address] Consulting Optometry 12/07/17 José Miguel Swanson, [facility] [address] [place] [address] Transitional Care Pharmacist Pharmacy 03/30/22 04/30/22 Katia Farooq, electronic scale subassembler Linter Tender 03/30/22 04/29/22 Precision Machine Operator Relationship Specialty [place] [address] [place] [address] PCP - General Family Practice 10/05/10 Edenilson Townsend [address] [place] [address] Consulting Optometry 12/07/[address] [facility] [address] [place] [address] Transitional Care Pharmacist Pharmacy 03/30/22 04/30/22 Katia Farooq, electronic scale subassembler Linter Tender 03/30/22 04/29/22 Precision Machine Operator Relationship Specialty [place] [address] [place] [address] PCP - General Family Practice 10/05/10 Edenilson Townsend [address] [place] [address] Consulting Optometry 12/07/17 Precision Machine Operator Relationship Specialty [place] [address] [place] [address] PCP - General Family Practice 10/05/10 Edenilson Townsend [address] [place] [address] Consulting Optometry 12/07/17 Precision Machine Operator Relationship Specialty [place] [address] [place] [address] PCP - General Family Practice 10/05/10 Edenilson Townsend [address] [place] [address] Consulting Optometry 12/07/17 Precision Machine Operator Relationship Specialty [place] [address] [facility] [place] [address] PCP - General Family Medicine 10/05/10 Edenilson Townsend [address] [place] [address] Consulting Optometry 12/07/17 Precision Machine Operator Relationship Specialty [place] [address] [facility] [place] [address] PCP - General Family Medicine 10/05/10 Edenilson Townsend [address] [place] [address] Consulting Optometry 12/07/17 Precision Machine Operator Relationship Specialty [place] [address] [facility] [place] [place] [address] PCP - General Family Medicine 10/05/10 Edenilson Townsend [address] [place] [address] Consulting Optometry 12/07/17 Precision Machine Operator Relationship Specialty [place] [address] [facility] [place] [address] PCP - General Family Medicine 10/05/10 Edenilson Townsend [address] [place] [address] Consulting Optometry 12/07/17 Precision Machine Operator Relationship Specialty [place] [address] [facility] [place] [address] PCP - General Family Medicine 10/05/10 Edenilson Townsend [address] [place] [address] Consulting Optometry 12/07/17 [place] [address] [place] [address] Primary Care Linter Tender 03/10/23 04/08/23 Precision Machine Operator Relationship Specialty [place] [address] [place] [address] PCP - General Family Medicine 10/05/10 Edenilson Townsend [address] [facility] [place] [address] Consulting Optometry 12/07/17 [place] [address] [place] [address] Primary Care Linter Tender 03/10/23 04/08/23 Precision Machine Operator Relationship Specialty [place] [address] [place] [address] PCP - General Family Medicine 10/05/10 Edenilson Townsend [address] [facility] [place] [address] Consulting Optometry 12/07/17 [place] [address] [place] [address] Primary Care Linter Tender 03/10/23 04/08/23 Precision Machine Operator Relationship Specialty [place] [address] [place] [address] PCP - General Family Medicine 10/05/10 Edenilson Townsend [address] [facility] [place] [address] Consulting Optometry 12/07/17 [place] [address] [place] [address] Primary Care Linter Tender 03/10/23 04/08/23 Precision Machine Operator Relationship Specialty [place] [address] [place] [address] PCP - General Family Medicine 10/05/10 Edenilson Townsend [address] [facility] [place] [address] Consulting Optometry 12/07/17 Precision Machine Operator Relationship Specialty [place] [address] [place] [address] PCP - General Family Medicine 10/05/10 Edenilson Townsend [address] [facility] [place] [address] Consulting Optometry 12/07/17 Precision Machine Operator Relationship Specialty [place] [address] [place] [address] PCP - General Family Medicine 10/05/10 Edenilson Townsend [address] [facility] [place] [address] Consulting Optometry 12/07/17 Precision Machine Operator Relationship Specialty Start [place] [address] [place] [address] PCP - General Family Medicine 10/05/10 Edenilson Townsend [address] [facility] [place] [address] Consulting Optometry 12/07/17 Precision Machine Operator Relationship Specialty [place] [address] [place] [address] PCP - General Family Medicine 10/05/10 Edenilson Townsend [address] [facility] [place] [address] Consulting Optometry 12/07/17 Precision Machine Operator Relationship Specialty [place] [address] [place] [address] PCP - General Family Medicine 10/05/10 Edenilson Townsend [address] [place] [address] Consulting Optometry 12/07/17 Precision Machine Operator Relationship Specialty [place] [address] [place] [address] PCP - General Family Medicine 10/05/10 Edenilson Townsend, OD [address] [place] [address] Consulting Optometry 12/07/17 Precision Machine Operator Relationship Specialty Start [place] [address] [place] [address] PCP - General Family Medicine 10/05/10 Edenilson Townsend, OD [address] [place] [address] Consulting Optometry 12/07/17 Precision Machine Operator Relationship Specialty [place] [address] [place] [address] PCP - General Family Medicine 10/05/10 Edenilson Townsend, OD [address] [place] [address] Consulting Optometry 12/07/17 Precision Machine Operator Relationship Specialty [place] [address] [place] [address] PCP - General Family Medicine 10/05/10 Edenilson Townsend OD [address] [place] [address] Consulting Optometry 12/07/17 Precision Machine Operator Relationship Specialty [place] [address] [place] [address] PCP - General Family Medicine 10/05/10 Edenilson Townsend, OD [address] [place] [address] Consulting Optometry 12/07/17 Precision Machine Operator Relationship Specialty [place] [address] [place] [address] PCP - General Family Medicine 10/05/10 Edenilson Townsend, OD [address] [place] [address] Consulting Optometry 12/07/17 Precision Machine Operator Relationship Specialty Start [place] [address] [place] [address] PCP - General Family Medicine 10/05/10 [place]send [place] [address] [place] [address] Consulting Optometry 12/07/17 Precision Machine Operator Relationship Specialty Start [place] [address] [place] [address] PCP - General Family Medicine 10/05/10 Edenilson Townsend, CHETNA [address] [place] [address] Consulting Optometry 12/07/17 Precision Machine Operator Relationship Specialty Start [place] [address] [place] [address] PCP - General Family Medicine 10/05/10 Edenilson Townsend, OD [address] [place] [address] Consulting Optometry 12/07/17 Precision Machine Operator Relationship Specialty Start [place] [address] [place] [address] PCP - General Family Medicine 10/05/10 Edenilson Townsend, OD [address] [place] [address] Consulting Optometry 12/07/17 Precision Machine Operator Relationship Specialty Start [place] [address] [place] [address] PCP - General Family Medicine 10/05/10 Edenilson Townsend, OD [address] [place] [address] Consulting Optometry 12/07/17 Precision Machine Operator Relationship Specialty Start [place] [address] [place] [address] PCP - General Family Medicine 10/05/10 Edenilson Townsend, OD [address] [place] [address] Consulting Optometry 12/07/17 Precision Machine Operator Relationship Specialty Start [place] [address] [place] [address] PCP - General Family Medicine 10/05/10 Edenilson Townsend OD [address] [place] [address] Consulting Optometry 12/07/17 Precision Machine Operator Relationship Specialty Start [place] [address] [place] [address] PCP - General Family Medicine 10/05/10 Edenilson Townsend OD [address] [place] [address] Consulting Optometry 12/07/17 Precision Machine Operator Relationship Specialty Start [place] [address] [place] [address] PCP - General Family Medicine 10/05/10 Edenilson Townsend OD [address] [place] [address] Consulting Optometry 12/07/17 Precision Machine Operator Relationship Specialty [place] [address] [place] [address] PCP - General Family Medicine 10/05/10 Edenilson Townsend OD [address] [place] [address] Consulting Optometry 12/07/17 Precision Machine Operator Relationship Specialty Start [place] [address] [place] [address] PCP - General Family Medicine 10/05/10 Edenilson Townsend OD [address] [place] [address] Consulting Optometry 12/07/17 Precision Machine Operator Relationship Specialty Start [place] [address] [place] [address] PCP - General Family Medicine 10/05/10 Edenilson Townsend OD [address] [place] [address] Consulting Optometry 12/07/17 Precision Machine Operator Relationship Specialty Start [place] [address] [place] [address] PCP - General Family Medicine 10/05/10 Edenilson Townsend, OD [address] [place] [address] Consulting Optometry 12/07/17 Precision Machine Operator Relationship Specialty [place] [address] [place] [address] PCP - General Family Medicine 10/05/10 Edenilson Townsend, OD [address] [place] [address] Consulting Optometry 12/07/17 Cinthia Ponce, 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 [address] [place] [address] Mechanical Apprentice Family Medicine 10/21/24 Willie Kaur 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 [address] [place] [address] Mechanical Apprentice Family Medicine 10/21/24 Precision Machine Operator Relationship Specialty [place] [address] [place] [address] PCP - General Family Medicine 10/05/10 Edenilson Townsend, OD [address] [place] [address] Consulting Optometry 12/07/17 Cinthia Ponce, 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 [address] [place] [address] Mechanical Apprentice Family Medicine 10/21/24 Willie Kaur, 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 [address] [facility] [place] [address] Mechanical Apprentice Family Medicine 10/21/24 Precision Machine Operator Relationship Specialty [place] [address] [place] [address] PCP - General Family Medicine 10/05/10 Edenilson Townsend, OD [address] [place] [address] Consulting Optometry 12/07/17 Cinthia Ponce, 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 [address] [place] [address] Mechanical Apprentice Family Medicine 10/21/24 Willie Kaur 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 [address] [facility] [place] [address] Mechanical Apprentice Family Medicine 10/21/24 Precision Machine Operator Relationship Specialty Start [place] [address] [place] [address] PCP - General Family Medicine 10/05/10 Edenilson Townsend OD [address] [place] [address] Consulting Optometry 12/07/17 Cinthia Ponce, 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 [address] [place] [address] Mechanical Apprentice Family Medicine 10/21/24 Willie Kaur, 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 [address] [place] [address] Mechanical Apprentice Family Medicine 10/21/24 Precision Machine Operator Relationship Specialty Start [place] [address] [place] [address] PCP - General Family Medicine 10/05/10 Edenilson Townsend OD [address] [place] [address] Consulting Optometry 12/07/17 Cinthia Ponce, 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 [address] [place] [address] Mechanical Apprentice Family Medicine 10/21/24 Willie Kaur, 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 [address] [place] [address] Mechanical Apprentice Family Medicine 10/21/24 Precision Machine Operator Relationship Specialty Start [place] [address] [place] [address] PCP - General Family Medicine 10/05/10 Edenilson Townsend OD [address] [place] [address] Consulting Optometry 12/07/17 Cinthia Ponce, 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 [address] [place] [address] Mechanical Apprentice Family Medicine 10/21/24 Willie Kaur, 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 [address] [place] [address] Mechanical Apprentice Family Medicine 10/21/24 Precision Machine Operator Relationship Specialty Start [place] [address] [place] [address] PCP - General Family Medicine 10/05/10 Edenilson Townsend OD [address] [place] [address] Consulting Optometry 12/07/17 Cinthia Ponce, 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 [address] [place] [address] Mechanical Apprentice Family Medicine 10/21/24 Willie Kaur, 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 [address] [place] [address] Mechanical Apprentice Family Medicine 10/21/24 Precision Machine Operator Relationship Specialty Start [place] [address] [place] [address] PCP - General Family Medicine 10/05/10 Edenilson Townsend OD [address] [place] [address] Consulting Optometry 12/07/17 Cinthia Ponce 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 [address] [place] [address] Mechanical Apprentice Family [facility] 10/21/24 Willie Kaur, 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 [address] [facility] [place] [address] Mechanical Apprentice Family [facility] 10/21/24 Precision Machine Operator Relationship Specialty Start [place] [address] [place] [address] PCP - General Family Medicine 10/05/10 Edenilson Townsend, OD [address] [place] [address] Consulting Optometry 12/07/17 Cinthia Ponce 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 [address] [place] [address] [facility] 10/21/24 Willie Kaur, 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 [address] [place] [address] [facility] 10/21/24 Precision Machine Operator Relationship Specialty Start [place] [address] [place] [address] PCP - General Family Medicine 10/05/10 Edenilson Townsend, OD [address] [place] [address] Consulting Optometry 12/07/17 Cinthia Ponce 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 [address] [place] [address] Mechanical Apprentice Family Medicine 10/21/24 Willie Kaur APRN.FARM MARKETER [address] [place] [address] Mechanical Apprentice Family Medicine 10/21/24 Precision Machine Operator Relationship Specialty Start [place] [address] [place] [address] PCP - General Family Medicine 10/05/10 Edenilson Townsend OD [address] [place] [address] Consulting Optometry 12/07/17 Cinthia Ponce 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 [address] [place] [address] Mechanical Apprentice Family Medicine 10/21/24 Willie Kaur 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 [address] [facility] [place] [address] Mechanical Apprentice Family [facility] 10/21/24 Precision Machine Operator Relationship Specialty Start [place] [address] [place] [address] PCP - General Family Medicine 10/05/10 Edenilson Townsend OD [address] [place] [address] Consulting Optometry 12/07/17 Cinthia Ponce 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 [address] [place] [address] Mechanical Apprentice Family Medicine 10/21/24 Willie Kaur, 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 [address] [place] [address] Mechanical Apprentice [facility] 10/21/24 Precision Machine Operator Relationship Specialty Start [place] [address] [place] [address] PCP - General Family Medicine 10/05/10 Edenilson Townsend, OD [address] [place] [address] Consulting Optometry 12/07/17 Cinthia Ponce 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 [address] [place] [address] [facility] 10/21/24 Willie Kaur, 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 [address] [place] [address] [facility] 10/21/24 Precision Machine Operator Relationship Specialty Start [place] [address] [place] [address] PCP - General Family Medicine 10/05/10 Edenilson Townsend, OD [address] [place] [address] Consulting Optometry 12/07/17 Cinthia Ponce 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 [address] [place] [address] Mechanical Apprentice Family Medicine 10/21/24 Willie Kuar 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 [address] [place] [address] Mechanical Apprentice Family Medicine 10/21/24 Precision Machine Operator Relationship Specialty Start [place] [address] [place] [address] PCP - General Family Medicine 10/05/10 Edenilson Townsend, OD [address] [place] [address] Consulting Optometry 12/07/17 Cinthia Ponce 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 [address] [place] [address] Mechanical Apprentice Family Medicine 10/21/24 Willie Kaur, 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 [address] [place] [address] Mechanical Apprentice Family Medicine 10/21/24 Precision Machine Operator Relationship Specialty Start [place] [address] [place] [address] PCP - General Family Medicine 10/05/10 Edenilson Townsend, CHETNA [address] [place] [address] Consulting Optometry 12/07/17 Cinthia Ponce 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 [address] [place] [address] Mechanical Apprentice Family Medicine 10/21/24 Willie Kaur, 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 [address] [place] [address] Mechanical Apprentice Family Medicine 10/21/24 Precision Machine Operator Relationship Specialty Start [place] [address] [place] [address] PCP - General Family Medicine 10/05/10 Edenilson Townsend, OD [address] [place] [address] Consulting Optometry 12/07/17 Cinthia Ponce 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 [address] [place] [address] Mechanical Apprentice Family Medicine 10/21/24 Willie Kaur 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 [address] [place] [address] Mechanical Apprentice Family Medicine 10/21/24 Precision Machine Operator Relationship Specialty Start [place] [address] [place] [address] PCP - General Family Medicine 10/05/10 Edenilson Townsend, OD [address] [place] [address] Consulting Optometry 12/07/17 Cinthia Ponce 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 [address] [place] [address] Mechanical Apprentice Family Medicine 10/21/24 Willie Kaur 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 [address] [place] [address] Mechanical Apprentice Family Medicine 10/21/24 Precision Machine Operator Relationship Specialty Start [place] [address] [place] [address] PCP - General Family Medicine 10/05/10 Edenilson Townsend, CHETNA [address] [place] [address] Consulting Optometry 12/07/17 Cinthia Ponce, 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 [address] [place] [address] Mechanical Apprentice Family Medicine 10/21/24 Willie Kaur, 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 [address] [place] [address] Mechanical Apprentice Family Medicine 10/21/24 Precision Machine Operator Relationship Specialty Start [place] [address] [place] [address] PCP - General Family Medicine 10/05/10 Edenilson Townsend OD [address] [place] [address] Consulting Optometry 12/07/17 Cinthia Ponce, 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 [address] [place] [address] Mechanical Apprentice Family Medicine 10/21/24 Willie Kaur, 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 [address] [place] [address] Mechanical Apprentice Family Medicine 10/21/24 Team Status: Active Member Role Status Dates Mario RODAS MD Attending Provider Active S tart: December 17, 2024 Marioscottie RODAS MD Referring Provider Active S tart: [...] Provider Active S tart: February 04, 2025 Precision Machine Operator Relationship Specialty Start [place] [address] [place] [address] PCP - General Family Medicine 10/05/10 Edenilson Townsend OD [address] [place] [address] Consulting Optometry 12/07/17 Cinthia Ponce 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 [address] [place] [address] Mechanical Apprentice Family Medicine 10/21/24 Willie Kaur APRN.FARM MARKETER [address] [place] [address] Mechanical Apprentice Family Medicine 10/21/24 Team Status: Inactive Member [...] Provider Active S tart: April 01, 2025 Precision Machine Operator Relationship Specialty [place] [address] [place] [address] PCP - General Family Medicine 10/05/10 Edenilson Townsend, OD [address] [place] [address] Consulting Optometry 12/07/17 Willie Kaur, 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 [id number] [place] [address] Mechanical Apprentice Family [facility] 10/21/24 Precision Machine Operator Relationship Specialty Start [place] [address] [place] [address] PCP - General Family Medicine 10/05/10 Edenilson Townsend, OD [address] [place] [address] Consulting Optometry 12/07/17 Willie Kaur, 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 [id number] [place] [address] Mechanical Apprentice Family Medicine 10/21/24 Precision Machine Operator Relationship Specialty Start [place] [address] [place] [address] PCP - [facility] 10/05/10 Edenilson Townsend OD [address] [place] [address] Consulting Optometry 12/07/17 Willie Kaur, 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 [id number] [place] [place] [address] [facility] 10/21/24 Precision Machine Operator Relationship Specialty Start [place] [address] [place] [address] PCP - [facility] 10/05/10 Edenilson Townsend, CHETNA [address] [place] [address] Consulting Optometry 12/07/17 Fabrizio, Willie, 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 [id number] [place] [address] [facility] 10/21/24 Goals (unrecognized section and content) Goals [...] BE BASED ON THE PRIMARY CLINICAL RECORDS. [facility] provides no warranty or guarantee of the accuracy or completeness of information in this document.
[2025-07-22 09:57] LABS: CRP 7.78 mg/L (0.0-3.0)
== END ==
LOC: OLS.ACH 05:00
PROVIDERS: Referring Provider Internal Medicine; Visit Provider Internal Medicine
DX: M46.92 Unspecified inflammatory spondylopathy, cervical region (principal); Z86.14 Personal history of Methicillin resistant Staphylococcus aureus infection
CPT/HCPCS: 36415; 85652; 86140

== ENCOUNTER → 2025-07-31 05:00 | Outpatient (REF) | payer MEDICARE, SELFPAY ==
[2025-07-31 08:32] LABS: Hematocrit 27.2 % (37-47); Hemoglobin 9.1 g/dL (12.0-15.0); Mean Corp Hgb Conc 33.5 g/dL (32-36); Mean Corpuscular Volume 91.3 fL (81-99); Mean Platelet Vol. 9.3 fl (6.2-12.0); Platelet Count 353 K/mm3 (150-450); RBC Distribution Width CV 13.6 % (11.6-14.6); RBC Distribution Width SD 45.9 fl (35.1-43.9); Red Blood Count 2.98 M/mm3 (4.2-5.4); White Blood Count 6.8 K/mm3 (4.4-11.0)
[2025-07-31 08:43] LABS: AST(SGOT) 25 U/L (<=31); Alanine Aminotransfer ALT/SGPT 22 U/L (<=34); Albumin, Serum 3.3 g/dL (3.4-4.8); Alkaline Phosphatase 106 U/L (35-104); Anion Gap 12 (5-15); BUN 28 mg/dL (4-19); BUN/Creat Ratio 27.8 RATIO (10-20); Calcium,Total 8.7 mg/dL (7.6-11.0); Carbon Dioxide 22.1 mmol/L (21.0-32.0); Chloride 105 mmol/L (98-108); Globulin 2.2 g/dL (2.2-4.2); Glucose 148 mg/dL (70-99); Potassium 4.2 mmol/L (3.3-5.1)
== END ==
LOC: OLS.ACH 05:00
PROVIDERS: Visit Provider Internal Medicine
DX: E87.1 Hypo-osmolality and hyponatremia (principal); E89.5 Postprocedural testicular hypofunction; D50.9 Iron deficiency anemia, unspecified
CPT/HCPCS: 36415; 80053; 85027

== ENCOUNTER → 2025-08-19 05:00 | Outpatient (REF) | payer MEDICARE, SELFPAY ==
[2025-08-19 08:26] LABS: CRP < 3.00 mg/L (0.0-3.0)
== END ==
LOC: OLS.ACH 05:00
PROVIDERS: Visit Provider Internal Medicine
DX: Z86.14 Personal history of Methicillin resistant Staphylococcus aureus infection (principal); M46.92 Unspecified inflammatory spondylopathy, cervical region
CPT/HCPCS: 36415; 85652; 86140

== ENCOUNTER → 2025-08-27 05:00 | Outpatient (REF) | payer MEDICARE, SELFPAY | LOC: OLS.ACH 05:00 | PROVIDERS: Visit Provider Internal Medicine | DX: Z86.14 Personal history of Methicillin resistant Staphylococcus aureus infection (principal) | CPT/HCPCS: 36415; 83036 ==

== ENCOUNTER → 2025-09-16 06:50 | Outpatient (REF) | payer MEDICARE, SELFPAY ==
[2025-09-16 10:16] LABS: CRP < 3.00 mg/L (0.0-3.0)
== END ==
LOC: OLS.ACH 06:50
PROVIDERS: Visit Provider Internal Medicine
DX: M46.92 Unspecified inflammatory spondylopathy, cervical region (principal); Z86.14 Personal history of Methicillin resistant Staphylococcus aureus infection
CPT/HCPCS: 36415; 85652; 86140

== ENCOUNTER → 2025-10-14 | Outpatient (REF) | payer MEDICARE, SELFPAY ==
--- OUTSIDE RECORDS SUMMARY | 2025-10-14 04:10 | XMS RPT_ITS | CCD ---
Author Organization [facility] ion Partnership [facility] Care Team Providers Care Media Strategist Name Role Phone Migdalia Cramer MD Primary Care Provider Edenilson Townsend Unavailable [phone] [facility] Care[facility] Miguel Unavailable Katia Farooq RN Unavailable UnavailMigdalia Matute MD Primary Care Provider Edenilson Townsend Unavailable [phone] Migdalia Cramer MD Primary Care Provider Edenilson Towsnend Unavailable [phone] Lien Hankins RN Unavailable Edenilson Townsend OD Unavailable [phone] Migdalia Cramer MD Primary Care Provider Kris JUVENILE JUSTICE OFFICER.Cinthia JUAN Unavailable [place] JUVENILE JUSTICE OFFICER.Willie JUAN Unavailable Aubree HODGE, Mario Attending Provider [...] Unavailable Aubree HODGE, Mario Referring Provider Unavailable TYESHA SINGLETON Attending Unavailable CRAMER, MIGDALIA D Primary Care Unavailable MITSCH, WILLIE Referring Unavailable CRAMER, MIGDALIA D Primary Care Unavailable MITSCH, WILLIE Referring Unavailable CRAMER, MIGDALIA D Primary Care Unavailable JUAN JOSÉ MENDEZRA Attending Unavailable CRAMER, MIGDALIA D Referring Unavailable CRAMER, MIGDALIA D Primary Care Unavailable CRAMER, MIGDALIA D Attending Unavailable CRAMER, MIGDALIA D Primary Care Unavailable OSCAR, GRUPO Referring Unavailable CRAMER, MIGDALIA D Primary Care Unavailable SIMONE KEVIN Referring Unavailable HAUGHTON, MIGDALIA D Primary Care Unavailable MARIUSZ ROMO [...] KEVIN Attending Unavailable AB BENSON Attending Unavailable CRAMER, MIGDALIA D Primary Care Unavailable SELF Referring Unavailable CRAMER, MIGDALIA D Primary Care Unavailable SIMONE KEVIN Attending Unavailable SIMONE KEVIN Referring Unavailable CRAMER, MIGDALIA D Primary Care Unavailable OSCAR, GRUPO Referring Unavailable CRAMER, MIGDALIA D Primary Care Unavailable GRUPO MENDEZ Attending Unavailable CRAMER, MIGDALIA D Primary Care Unavailable CRAMER, MIGDALIA D Attending Unavailable CRAMER, MIGDALIA D Primary Care Unavailable MARIUSZ ROMO Referring Unavailable CRAMER, MIGDALIA D Primary Care Unavailable CRAMER, MIGDALIA D Attending Unavailable Aubree HODGE, Mario Attending Physician Unavailable Aubree HODGE, Mario Referring Provider Unavailable Depshanell RODAS, Mario Attending Unavailable Deperro ADRIANNA, Mario Attending Unavailable Deperro OLS, Mario Attending Unavailable Deperro OLS, Mario Attending Unavailable Deperro OLS, Mario Attending Unavailable Deperro ADRIANNA, Mario Referring Unavailable Deperro ADRIANNA, Mario Attending Unavailable Deperro OLS, Mario Referring [...] Attending Unavailable Deperro OLS, Mario Referring Unavailable Medications Current Medications Medication Drug [...] Comment on above: Take 1 capsule by [facility] once daily for 3 doses. [...] needed. docusate sodium 50 mg / sennosides, shelter 8.6 mg oral tablet (14 sources) take [...] Comment on above: Take 1 tablet by twice daily. GLUCAGON INJECTION (9 sources) GLUCAGON [...] (20 sources) Angiotensin Converting Enzyme Inhibitor Start: 025 take 1 tablet by mouth once daily [...] mg oral tablet (20 sources) Biguanide Start: 3 End: 5 take 1 tablet by mouth twice [...] tablet (20 sources) Proton Pump Inhibitor Start: 5 take 1 tablet by mouth twice daily before mealtime, then take 4 tablets by mouth in the evening pantoprazole DR (PROTONIX) 40 mg tablet Take 1 tablet by mouth two times a day before meals at 6 am and 4 pm. 12/12/2024 Active pravastatin sodium 20 mg oral tablet (20 sources) HMG-CoA Reductase Inhibitor Start: 4 End: 5 take 1 tablet by mouth once [...] Take 1 tablet by iwona once daily. predniSONE 5 mg oral tablet [...] on above: Take 1 capsule by mo [facility] once daily. 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 Deficiency and other anemia (1 source) Iron deficiency anemia, unspecified; Translations: [Iron deficiency anemia, unspecified] Onset: 5 Episodic Diabetes mellitus with complications (20 sources) [...] classified] Onset: 2 Resolved: 2 03-24-2022 Episodic Genitourinary symptoms and ill-defined conditions (20 [...] Unclassified (1 source) Wound Check Onset: 5 Past or Other Problems Problem Classification Problem [...] unspecified; Translations: [Normocytic anemia] Onset: 2 Episodic Fracture of lower limb (3 sources) [...] shoulder, sequela] Onset: 4 Resolved: 7 Episodic Urinary tract infections (20 sources) Acute cystitis; Translations: [Acute cystitis without hematuria] Onset: 2 Resolved: 2 03-24-2022 Episodic Varicose veins of lower extremity (20 sources) Varicose veins of lower extremity; Translations: [Varicose veins of bilateral lower extremities with other complications] Onset: 1 09-27-2011 Episodic Results Test Name Value Interpretation Reference Range Facility CRPon 09-16-2025 C-REACTIVE PROT < 3.00 Normal 0.0-3.0 [facility] Comment on above: Performed By: #### L 400.0001, M100.2200 #### [facility] [address] [place], [address] Erythrocyte Sed Rateon 09-16 SED RATE 39 mm/hr High 0-30 [facility] Comment on above: Performed By: #### L 400.0001, M10 #### [facility] [address] [place], [address] Hemoglobin A1con 08-27-2025 HbA1c (Bld) [Mass fraction] 7.4 % High <=5.6 [facility] Comment on above: Order Comment: 107-1 CLEAN CATCH Result Comment: Norm al < 5.7 % Prediabetic 5.7 - 6.4 % Diabetic >or= 6.5 % Please note range changes. Performed By: #### L 400.0001, M1 #### [facility] [address] [place], [address] CRPon 08-19-2025 C-REACTIVE PROT < 3.00 Normal 0.0-3.0 [facility] Comment on above: Order Comment: 107-1 Performed By: #### L 400.0001, #### [facility] [address] [place], [address] Erythrocyte Sed Rateon 08-19 SED RATE 17 mm/hr Normal 0-30 [facility] Comment on above: Order Comment: 107-1 Performed By: #### L 400.0001, #### [facility] [address] [place], [address] Anion gap in Serum or Plasma Ordered By: Mario Mak on 07-31-2025 Anion gap [Moles/Vol] 12 mmol/L 5-[address] [facility] Automated blood erythrocyte countOrdered By: Mario Mak on 07-31-2025 RBC (Bld) [#/Vol] 2.98 10*6/uL Low 4.2-5.4 [facility] Comment on above: Order Comment: 107.1 Performed By: #### L 501.6710, L101.9900 #### [facility] [address] [place], [address] Automated blood hematocrit ( percentage)Ordered By: Mario Mak on 07-31-2025 Hematocrit (Bld) [Volume fraction] 27.2 % Low 37-47 [facility] Comment on above: Order Comment: 107.1 Performed By: #### L 501.6710, L101.9900 #### [facility] [address] [place], [address] BUN/creatinine ratioOrdered By: Mario Mak on 07-31-2025 Urea nitrogen/Creatinine [Mass ratio] 27.8 mg/mg High 10-20 [facility] Bilirubin, totalOrdered By: Mario Mak on 07-31-2025 Bilirubin [Mass/Vol] 0.20 mg/dL Normal 0.00-1.30 [facility] Comment on above: Order Comment: 107.1 Performed By: #### L 501.6710, L101.9900 #### [facility] [address] [place], [address] CBC-Complete Blood Cnt No Di ffon 07-31-2025 RDW SD 45.9 fl High 35.1-43.9 [facility] Comment on above: Order Comment: 107.1 Performed By: #### L 501.6710, L101.9900 #### [facility] [address] [place], [address] Carbon dioxide, total [Moles /volume] in Central venous bloodOrdered By: Mario Mak on 07-31-2025 CO2 [Moles/Vol] 22.1 mmol/L Normal 21.0-32.0 [facility] Comment on above: Order Comment: 107.1 Performed By: #### L 501.6710, L101.9900 #### [facility] [address] [place], [address] Chloride assayOrdered By: Moreno on 07-31-2025 Chloride [Moles/Vol] 105 mmol/L Normal 98-108 [facility] Comment on above: Order Comment: 107.1 Performed By: #### L 501.6710, L101.9900 #### [facility] [address] [place], [address] Comprehensive Metabolic Prof ilon 07-31-2025 ALK PHOS 106 U/L High 35-104 [facility] Comment on above: Order Comment: 107.1 Performed By: #### L 501.6710, L101.9900 #### [facility] [address] [place], [address] BUN/CRE 27.8 RATIO High 10-20 [facility] Comment on above: Order Comment: 107.1 Performed By: #### L 501.6710, [id number] #### [facility] [address] [place], [address] GAP 12 Normal 5-15 [facility] Comment on above: Order Comment: 107.1 Performed By: #### L 501.6710, L101.9900 #### [facility] [address] [place], [address] Potassium [Moles/Vol] 4.2 mmol/L Normal 3.3-5.[address] [facility] Comment on above: Order Comment: 107.1 Performed By: #### L 501.6710, [id number] #### [facility] [address] [place], [address] T PROT 5.5 g/dL Low 5.9-8.4 [facility] Comment on above: Order Comment: 107.1 Performed By: #### L 501.6710, L101.9900 #### [facility] [address] [place], [address] Comprehensive Metabolic Prof ilOrdered By: Mario Mak on 07-31-2025 AST [Catalytic activity/Vol] 25 U/L Normal <=31 [facility] Comment on above: Order Comment: 107.1 Performed By: #### L 501.6710, L101.9900 #### [facility] [address] [place], [address] Erythrocyte distribution wid th ratioOrdered By: Mario Mak on 07-31-2025 Erythrocyte distribution width (RBC) [Ratio] 13.6 % Normal 11.6-14.6 [facility] Comment on above: Order Comment: 107.1 Performed By: #### L 501.10, L101.9900 #### [facility] [address] [place], [address] Erythrocyte distribution wid th standard deviationOrdered By: Mario Mak on 07-31-2025 Erythrocyte distribution width (RBC) [Ratio] 45.9 fl High 35.1-43.9 [facility] Glomerular filtration rate ( GFR) estimation/1.73 sq m using serum, plasma, or whole bOrdered By: Mario Mak on 07-31-2025 GFR/1.73 sq M.predicted among non-blacks MDRD (S/P/Bld) [Vol rate/Area] 54 mL/min/{1.73_m2} Low >60 [facility] Comment on above: mL/min/1.73m2 CKD-EP I Creatinine Equation (2020) Order Comment: 107.1 Result Comment: mL/m in/1.73m2 CKD-EPI Creatinine Equation (2020) Performed By: #### L 501.6710, L101.9900 #### [facility] [address] [place], [address] Hemoglobin measurementOrdere d By: Mario Mak on 07-31-2025 Hemoglobin (Bld) [Mass/Vol] 9.1 g/dL Low 12.0-15.0 [facility] Comment on above: Order Comment: 107.1 Performed By: #### L 501.6710, L101.9900 #### [facility] [address] [place], [address] MCV (mean corpuscular volume ) determinationOrdered By: Mario Mak on 07-31-2025 MCV (RBC) [Entitic vol] 91.3 fL Normal 81-99 [facility] Comment on above: Order Comment: 107.1 Performed By: #### L 501.6710, L101.9900 #### [facility] [address] [place], [address] Mean corpuscular hemoglobin (MCH) determinationOrdered By: Mario Mak on 07-31-2025 MCH (RBC) [Entitic mass] 30.5 pg Normal 27.0-32.0 [facility] Comment on above: Order Comment: 107.1 Performed By: #### L 501.6710, L101.9900 #### [facility] [address] [place], [address] Mean corpuscular hemoglobin concentration (MCHC) determinationOrdered By: Mario aMk on 07-31-2025 MCHC (RBC) [Mass/Vol] 33.5 g/dL Normal 32-[address] [facility] Comment on above: Order Comment: 107.1 Performed By: #### L 501.6710, L101.9900 #### [facility] [address] [place], [address] Mean platelet volume determi nationOrdered By: Mario Mak on 07-31-2025 Platelet mean volume (Bld) [Entitic vol] 9.3 fL Normal 6.2-12.0 [facility] Comment on above: Order Comment: 107.1 Performed By: #### L 501.6710, L101.9900 #### [facility] [address] [place], [address] Platelet countOrdered By: Moreno on 07-31-2025 Platelets (Bld) [#/Vol] 353 10*3/uL Normal 150-450 [facility] Comment on above: Order Comment: 107.1 Performed By: #### L 501.6710, L101.9900 #### [facility] [address] [place], [address] Potassium measurement (mass/ volume)Ordered By: Mario Mak on 07-31-2025 Potassium (Unsp spec) [Mass/Vol] 4.2 mmol/L 3.3-5.1 [facility] Serum creatinine measurement (mass/volume)Ordered By: Mario Mak on 07-31-2025 Creatinine [Mass/Vol] 1.00 mg/dL Normal 0.70-1.[address] [facility] Comment on above: Order Comment: 107.1 Performed By: #### L 501.6710, L101.9900 #### [facility] [address] [place], [address] Serum globulin measurementOr dered By: Mario Mak on 07-31-2025 Globulin (S) [Mass/Vol] 2.2 g/dL Normal 2.2-4.2 [facility] Comment on above: Order Comment: 107.1 Performed By: #### L 501.6710, L101.9900 #### [facility] [address] [place], [address] Serum glucose measurement (m ass/volume)Ordered By: Mario Mak on 07-31-2025 Glucose [Mass/Vol] 148 mg/dL High 70-99 [facility] Comment on above: Order Comment: 107.1 Performed By: #### L 501.6710, L101.9900 #### [facility] [address] [place], [address] Serum or plasma alanine melara otransferase (ALT) measurementOrdered By: Mario Mak on 07-31-2025 ALT [Catalytic activity/Vol] 22 U/L Normal <=34 [facility] Comment on above: Order Comment: 107.1 Performed By: #### L 501.6710, L101.9900 #### [facility] [address] [place], [place], [address] Serum or plasma albumin roma urement (mass/volume)Ordered By: Mario Mak on 07-31-2025 Albumin [Mass/Vol] 3.3 g/dL Low 3.4-4.8 [facility] Comment on above: Order Comment: 107.1 Performed By: #### L 501.6710, L101.9900 #### [facility] [address] [place], [address] Serum or plasma albumin/glob ulin mass ratioOrdered By: Mario Mak on 07-31-2025 Albumin/Globulin [Mass ratio] 1.5 {ratio} Normal 0.9-2.4 [facility] Comment on above: Order Comment: 107.1 Performed By: #### L 501.6710, L101.9900 #### [facility] [address] [place], [address] Serum or plasma alkaline krystal sphatase measurementOrdered By: Mario Mak on 07-31-2025 ALP [Catalytic activity/Vol] 106 U/L High 35-104 [facility] Serum or plasma calcium roma urement (mass/volume)Ordered By: Mario Mak on 07-31-2025 Calcium [Mass/Vol] 8.7 mg/dL Normal 7.6-11.0 [facility] Comment on above: Order Comment: 107.1 Performed By: #### L 501.6710, L101.9900 #### [facility] [address] [place], [address] Serum or plasma urea nitroge n measurement (mass/volume)Ordered By: Mario Mak on 07-31-2025 Urea nitrogen [Mass/Vol] 28 mg/dL High 4-19 [facility] Comment on above: Order Comment: 107.1 Performed By: #### L 501.6710, L101.9900 #### [facility] [address] [place], [address] Sodium levelOrdered By: Mario Mak on 07-31-2025 Sodium [Moles/Vol] 139 mmol/L Normal 133-145 [facility] Comment on above: Order Comment: 107.1 Performed By: #### L 501.6710, L101.9900 #### [facility] [address] [place], [address] Total proteinOrdered By: Shwetha Mak on 07-31-2025 Protein [Mass/Vol] 5.5 g/dL Low 5.9-8.4 [facility] White blood cell (WBC) count Ordered By: Mario Mak on 07-31-2025 WBC (Bld) [#/Vol] 6.8 10*3/uL Normal 4.4-11.0 [facility] Comment on above: Order Comment: 107.1 Performed By: #### L 501.6710, L101.9900 #### [facility] [address] [place], [address] CRPon 07-22-2025 C-REACTIVE PROT 7.78 mg/L High 0.0-3.0 [facility] Comment on above: Order Comment: 107-1 Performed By: #### L 400.0001, M100.2200 #### [facility] [address] [place], [address] Erythrocyte Sed Rateon 07-22 SED RATE 29 mm/hr Normal 0-30 [facility] Comment on above: Order Comment: 107-1 Performed By: #### L 400.0001, M100.2200 #### [facility] [address] [place], [address] Erythrocyte sedimentation ra teOrdered By: Mario Mak on 07-22-2025 ESR (Bld) [Velocity] 29 mm/h 0-30 [facility] Serum or plasma C reactive p rotein measurement (mass/volume)Ordered By: Mario Mak on 07-22-2025 CRP [Mass/Vol] 7.78 mg/L High 0.0-3.0 [facility] 07-05-2025 CNPN Telephone (RAAFVC) YUSUF MEDINA ([id number]) 1935 F [place] Date Time Provider Department 07/05/25 MARCO A MERIDA During your visit today, we recorded the following information about you: Allergies As of Date: 07/05/2025 (No Known Allergies) Date Reviewed: 02/13/2025 Reviewed by: Margie Steiner RN - Fully Assessed Primary Visit Diagnosis:Abnormal finding of diagnostic imaging [R93.89] Order(s):CONSULT TO [facility] [[id number]] Order #: [id number]: 1 FUTURE Prescriptions as of 07/05/2025 - [...] this patient by: CAREGIVER José Miguel Swanson [facility] Problem List As Of Date 07/05/2025 Noted [...] Renal dysf (more content not included)... Normal [facility] CRPon 06-24-2025 C-REACTIVE PROT < 3.00 Normal 0.0-3.0 [facility] Comment on above: Order Comment: 107.1 Performed By: #### L 101.9900, L501.6710 #### [facility] [address] [place], [address] Erythrocyte Sed Rateon 06-24 SED RATE 15 mm/hr Normal 0-30 [facility] Comment on above: Order Comment: 107.1 Performed By: #### L 101.9900, L5.6710 #### [facility] [address] [place], [address] Erythrocyte sedimentation ra teOrdered By: Mario Mak on 06-24-2025 ESR (Bld) [Velocity] 15 mm/h 0-30 [facility] Serum or plasma C reactive p rotein measurement (mass/volume)Ordered By: Mario Mak on 06-24-2025 CRP [Mass/Vol] mg/L 0.0-3.0 [facility] CDIFF (PCR)on 06-20-2025 CDIFF Pending [phone] [id number] Presumptive Negative *for epidemiolologic???use C. Diff PCR Negative- No toxigenic C. Diff Detected Normal [facility] Comment on above: Performed By: #### L 400.0001, M100.2200 #### [facility] [address] [place], [place], [address] Clostridium difficile detect ion by polymerase chain reactionOrdered By: Mario Mak on 06-20-2025 C. difficile DNA NELIA+probe Ql (Unsp spec) [facility] Hemoglobin A1con 06-04-2025 HbA1c (Bld) [Mass fraction] 7.2 % High <=5.6 [facility] Comment on above: Order Comment: 107.1 Result Comment: Norm al < 5.7 % Prediabetic 5.7 - 6.4 % Diabetic >or= 6.5 % Please note range changes. Performed By: #### L 101.9900, L501.6710 #### [facility] [place], [address] Hemoglobin A1c percentageOrd ered By: Mario Mak on 06-04-2025 HbA1c (Bld) [Mass fraction] 7.2 % High <5.7 [facility] Comment on above: Normal < 5.7 % Predi abetic 5.7 - 6.4 % Diabetic >or= 6.5 % Please note range changes. Arti 05-28-2025 DRAKEN Telephone ([employer]) YUSUF MEDINA ([id number]) 1935 [facility] Date Time Provider Department 05/28/25 TYESHA SINGLETON During your visit today, we recorded the following information about you: Lidia Carbajal LPN 05/28/2025 2:12 PM Signed Received results of labs done on 05/27/2025 from [facility] (abnormal results in bold): CRP [...] this patient by: CAREGIVER José Miguel Swanson [facility] Problem List As Of Date 05/28/2025 Noted [...] 05/11/2016 Hi (more content not included)... Normal [facility] CRPon 05-27-2025 C-REACTIVE PROT < 3.00 Normal 0.0-3.0 [facility] Comment on above: Order Comment: 107.1 Performed By: #### L 501.6710, L101.9900 #### [facility] [address] [place], [place], [address] Erythrocyte Sed Rateon 05-27 SED RATE 14 mm/hr Normal 0-30 [facility] Comment on above: Order Comment: 107.1 Performed By: #### L 501.6710, L101.9900 #### [facility] [address] [place], [place], [address] Erythrocyte sedimentation ra teOrdered By: Mario Mak on 05-27-2025 ESR (Bld) [Velocity] 14 mm/h 0-30 [facility] Serum or plasma C reactive p rotein measurement (mass/volume)Ordered By: Mario Mak on 05-27-2025 CRP [Mass/Vol] mg/L 0.0-3.0 [facility] CNPNon 05-01-2025 DRAKEN Telephone (MARJORIE) YUSUF MEDINA ([id number]) 1935 F [place] Date Time Provider Department 05/01/25 TYESHA SINGLETON During your visit today, we recorded the following information about you: Ketty Remy LPN 05/01/2025 4:38 PM Signed Received results of labs done on [facility] from 04/29/25 (abnormal results in bold): CRP 21.0 sed rate 32 Report sent for scanning. Tyesha Singleton MD 05/02/2025 8:14 AM Signed Please ask her to come in for follow up with me. Also make sure she is taking the colchicine and mobic as prescribed. MD Solomon Pruett Trena, LPN 05/02/2025 10:30 AM Signed Called and spoke to Uloyetmz-[id number], Demetria. Patient is in a long-term care facility. Called facility [phone], but unable to speak to nurse as [...] this patient by: CAREGIVER José Miguel Swanson [facility] Problem List As Of Date 05/01/2025 Noted [...] 10/31/2010 09/23/2014 (more content not included)... Normal [facility] CRPon 04-29-2025 C-REACTIVE PROT 21.00 mg/L High 0.0-3.0 [facility] Comment on above: Order Comment: 107.1 Performed By: #### L 400.0001, M100.2200 #### [facility] [address] [place], [place], [address] Erythrocyte Sed Rateon 04-29 SED RATE 32 mm/hr High 0-30 [facility] Comment on above: Order Comment: 107.1 Performed By: #### L 400.0001, M100.2200 #### [facility] [address] [place], [address] Erythrocyte sedimentation ra teOrdered By: Mario Mak on 04-29-2025 ESR (Bld) [Velocity] 32 mm/h High 0-30 [facility] Serum or plasma C reactive p rotein measurement (mass/volume)Ordered By: Mario Mak on 04-29-2025 CRP [Mass/Vol] 21.00 mg/L High 0.0-3.0 [facility] Urine Cultureon 04-28-2025 URC 107-1 #2 Below infection level. PROBABLE PROTEUS SPECIES Escherichia coli Noxon Count 11,000-25,000 Gram negative anabell Gram negative [...] TMP SMX Islt HEMANT <=20 S Normal [facility] Comment on above: Performed By: #### L 400.0001, M100.2200 #### [facility] [address], [place], [id number] Bilirubin Test strip Ql (U)O rdered By: Mario Mak on 04-26-2025 Bilirubin Ql (U) Negative Negative [facility] Hyaline casts LM.LPF (Urine sed) [#/Area]Ordered By: Mario Mak on 04-26-2025 Hyaline casts (Urine sed) [#/Area] 5 /[LPF] 0-5 [facility] Ketones Test strip Ql (U)Ord ered By: Mario Mak on 04-26-2025 Ketones Ql (U) Negative Negative [facility] Microscopic analysis of urin e for red blood cells (RBC)Ordered By: Mario Mak on 04-26-2025 Microscopic analysis of urine for red blood cells (RBC) 0 SEEN /hpf 0-5 [facility] Mucus LM Ql (Urine sed)Order ed By: Mario Mak on 04-26-2025 Mucus Ql (Urine sed) 0 SEEN /hpf [facility] Nitrite Test strip Ql (U)Ord ered By: Mario Mak on 04-26-2025 Nitrite Ql (U) Negative Negative [facility] Protein Test strip Ql (U)Ord ered By: Mario Mak on 04-26-2025 Protein Ql (U) 100 mg/dl High Negative [facility] Squamous epithelial cells de tection in urine sediment by light microscopyOrdered By: Mario Mak on 04-26-2025 Epithelial cells.squamous LM Ql (Urine sed) 5-10 SEEN /hpf 5-10 [facility] Urinalysis, Completeon 04-26 CAST,FINE GRAN 0-5 SEEN Normal 0-5 [facility] Comment on above: Order Comment: 107-1 CLEAN CATCH Performed By: #### L 400.0001, M100.0 #### [facility] [address] [place], [address] CAST,HYALINE 5-10 SEEN Normal 0-5 [facility] Comment on above: Order Comment: 107-1 CLEAN CATCH Performed By: #### L 400.0001, M100.0 #### [facility] [address] [place], [address] BACTERIA 1+ /hpf Normal None Seen [facility] Comment on above: Order Comment: 107-1 CLEAN CATCH Performed By: #### L 400.0001, M100.0 #### [facility] [address] [place], [address] EPI,SQUAMOUS 5-10 SEEN Normal 5-10 [facility] Comment on above: Order Comment: 107-1 CLEAN CATCH Performed By: #### L 400.0001, M100.2200 #### [facility] [address] [place], [address] WBC 0-5 SEEN Normal 0-5 [facility] Comment on above: Order Comment: 107-1 CLEAN CATCH Performed By: #### L 400.0001, M100.2200 #### [facility] [address] [place], [address] Mucus Ql (Urine sed) 0 SEEN Normal [facility] Comment on above: Order Comment: 107-1 CLEAN CATCH Performed By: #### L 400.0001, M100.2200 #### [facility] [address] [place], [address] RBC 0 SEEN Normal 0-5 [facility] Comment on above: Order Comment: 107-1 CLEAN CATCH Performed By: #### L 400.0001, M100.2200 #### [facility] [address] [place], [address] Urine clarityOrdered By: Shwetha Mak on 04-26-2025 Clarity (U) Clear Clear [facility] Urine color determinationOrd ered By: Mario Mak on 04-26-2025 Color (U) Yellow Yellow [facility] Urine cultureOrdered By: Shwetha Mak on 04-26-2025 Bacteria identified Cx Nom (U) Escherichia coli Abnormal [facility] Bacteria identified Cx Nom (U) Negative Abnormal [facility] Urine glucose detectionOrder ed By: Mario Mak on 04-26-2025 Glucose Ql (U) Normal mg/dl Normal [facility] Urine leukocyte esterase det ection by dipstickOrdered By: Mario Mak on 04-26-2025 Leukocyte esterase Test strip Ql (U) 25 /ul High Negative [facility] Urine pHOrdered By: Mario reece on 04-26-2025 pH (U) 6.0 [pH] 5.0 - 8.0 [facility] Urine sediment bacteria coun t by microscopy (number/high power field)Ordered By: Mario Mak on 04-26-2025 Bacteria LM.HPF (Urine sed) [#/Area] 1 /[HPF] None Seen [facility] Urine sediment fine granular cast count by microscopy (number/low power field)Ordered By: Mario Mak on 04-26-2025 Fine Granular Casts LM.LPF (Urine sed) [#/Area] 0-5 SEEN /lpf 0-5 [facility] Urine specific gravity measu rementOrdered By: Mario Mak on 04-26-2025 Specific gravity (U) [Rel density] 1.020 1.002-1.030 [facility] Urine urobilinogen measureme ntOrdered By: Mario Mak on 04-26-2025 Urobilinogen Ql (U) Normal mg/dl Normal [facility] White blood cell countOrdere d By: Mario Mak on 04-26-2025 White blood cell count 0-5 SEEN /hpf 0-5 [facility] Urine Cultureon 04-12-2025 URC 107-1 #2 Probable Proteus species. Below infection level. Escherichia coli [place] Count 50,000-80,000 Gram negative anabell Gram negative [...] TMP SMX Islt HEMANT <=20 S Normal [facility] Comment on above: Performed By: #### L 400.0001, M100.2200 #### [facility] [address] [place], [address] Urinalysis, Completeon 04-11 CAST,HYALINE 0-5 SEEN Normal 0-5 [facility] Comment on above: Order Comment: PLEAS E ADD TO 04/10CLEAN CATCH Performed By: #### L 400.0001, M100.2200 #### [facility] [address] [place], [address] BACTERIA 1+ /hpf Normal None Seen [facility] Comment on above: Order Comment: PLEAS E ADD TO 04/10CLEAN CATCH Performed By: #### L 400.0001, M100.2200 #### [facility] [address] [place], [address] EPI,SQUAMOUS 0-5 SEEN Normal 5-10 [facility] Comment on above: Order Comment: PLEAS E ADD TO 04/10CLEAN CATCH Performed By: #### L 400.0001, M100.2200 #### [facility] [address] [place], [address] RBC 0-5 SEEN Normal 0-5 [facility] Comment on above: Order Comment: PLEAS E ADD TO 04/10CLEAN CATCH Performed By: #### L 400.0001, M100.2200 #### [facility] [address] [place], [address] WBC 5-10 SEEN Normal 0-5 [facility] Comment on above: Order Comment: PLEAS E ADD TO 04/10CLEAN CATCH Performed By: #### L 400.0001, M100.2200 #### [facility] [address] [place], [address] Mucus Ql (Urine sed) 0 SEEN Normal [facility] Comment on above: Order Comment: PLEAS E ADD TO 04/10CLEAN CATCH Performed By: #### L 400.0001, M100.2200 #### [facility] [address] [place], [address] Bilirubin Test strip Ql (U)O rdered By: Mario Mak on 04-10-2025 Bilirubin Ql (U) Negative Negative [facility] Hyaline casts LM.LPF (Urine sed) [#/Area]Ordered By: Mario Mak on 04-10-2025 Hyaline casts (Urine sed) [#/Area] 0 /[LPF] 0-5 [facility] Ketones Test strip Ql (U)Ord ered By: Mario Mak on 04-10-2025 Ketones Ql (U) Negative Negative [facility] Microscopic analysis of urin e for red blood cells (RBC)Ordered By: Mario Mak on 04-10-2025 Microscopic analysis of urine for red blood cells (RBC) 0-5 SEEN /hpf 0-5 [facility] Mucus LM Ql (Urine sed)Order ed By: Mario Mak on 04-10-2025 Mucus Ql (Urine sed) 0 SEEN /hpf [facility] Nitrite Test strip Ql (U)Ord ered By: Mario Mak on 04-10-2025 Nitrite Ql (U) Negative Negative [facility] Protein Test strip Ql (U)Ord ered By: Mario Mak on 04-10-2025 Protein Ql (U) 100 mg/dl High Negative [facility] Squamous epithelial cells de tection in urine sediment by light microscopyOrdered By: Mario Mak on 04-10-2025 Epithelial cells.squamous LM Ql (Urine sed) 0-5 SEEN /hpf 5-10 [facility] Urine clarityOrdered By: Shwetha Mak on 04-10-2025 Clarity (U) Clear Clear [facility] Urine color determinationOrd ered By: Mario Mak on 04-10-2025 Color (U) Yellow Yellow [facility] Urine cultureOrdered By: Shwetha Mak on 04-10-2025 Bacteria identified Cx Nom (U) Escherichia coli Abnormal [facility] Bacteria identified Cx Nom (U) Negative Abnormal [facility] Urine glucose detectionOrder ed By: Mario Mak on 04-10-2025 Glucose Ql (U) Normal mg/dl Normal [facility] Urine leukocyte esterase det ection by dipstickOrdered By: Mario Mak on 04-10-2025 Leukocyte esterase Test strip Ql (U) 100 /ul High Negative [facility] Urine pHOrdered By: Mario reece on 04-10-2025 pH (U) 6.0 [pH] 5.0 - 8.0 [facility] Urine sediment bacteria coun t by microscopy (number/high power field)Ordered By: Mario Mak on 04-10-2025 Bacteria LM.HPF (Urine sed) [#/Area] 1 /[HPF] None Seen [facility] Urine specific gravity measu rementOrdered By: Mario Mak on 04-10-2025 Specific gravity (U) [Rel density] 1.015 1.002-1.030 [facility] Urine urobilinogen measureme ntOrdered By: Mario Mak on 04-10-2025 Urobilinogen Ql (U) Normal mg/dl Normal [facility] White blood cell countOrdere d By: Mario Mak on 04-10-2025 White blood cell count 5-10 SEEN /hpf 0-5 [facility] CRPon 04-01-2025 C-REACTIVE PROT < 3.00 Normal 0.0-3.0 [facility] Comment on above: Order Comment: 107-1 CLEAN CATCH Performed By: #### L 400.0001, M1 #### [facility] [address] [place], [place], [address] Erythrocyte Sed Rateon 04-01 SED RATE 14 mm/hr Normal 0-30 [facility] Comment on above: Order Comment: 107-1 CLEAN CATCH Performed By: #### L 400.0001, #### [facility] [address] [place], [place], [address] Erythrocyte sedimentation ra teOrdered By: Mario Mak on 04-01-2025 ESR (Bld) [Velocity] 14 mm/h 0-30 [facility] Serum or plasma C reactive p rotein measurement (mass/volume)Ordered By: Mario Mak on 04-01-2025 CRP [Mass/Vol] mg/L 0.0-3.0 [facility] Hemoglobin A1c percentageOrd ered By: Mario Mak on 03-12-2025 HbA1c (Bld) [Mass fraction] 7.4 % High <=5.6 [facility] Comment on above: Normal < 5.7 % Predi abetic 5.7 - 6.4 % Diabetic >or= 6.5 % Please note range changes. Order Comment: 107.1 Result Comment: Norm al < 5.7 % Prediabetic 5.7 - 6.4 % Diabetic >or= 6.5 % Please note range changes. Performed By: #### L 400.0001, #### [facility] [address] [place], [place], [id number] CRPon 03-04-2025 C-REACTIVE PROT < 3.00 Normal 0.0-3.0 [facility] Comment on above: Order Comment: 107-1 CLEAN CATCH Performed By: #### L 400.0001, #### [facility] [address] [place], [place], [address] Erythrocyte Sed Rateon 03-04 SED RATE 12 mm/hr Normal 0-30 [facility] Comment on above: Order Comment: 107.1 Performed By: #### L 501.6710, L101.9900 #### [facility] [address] [place], [place], [address] Erythrocyte sedimentation ra teOrdered By: Mario Mak on 03-04-2025 ESR (Bld) [Velocity] 12 mm/h 0-30 [facility] Serum or plasma C reactive p rotein measurement (mass/volume)Ordered By: Mario Mak on 03-04-2025 CRP [Mass/Vol] mg/L 0.0-3.0 [facility] CNOVon 02-13-2025 CNOV Normal CNPNon 02-11-2025 JACINTA Telephone (MARJORIE) YUSUF MEDINA ([id number]) 1935 [facility] Date Time Provider Department 02/11/25 TYESHA SINGLETON During your visit today, we recorded the following information about you: Lidia Carbajal LPN 02/11/2025 1:00 PM Signed Received results of labs done on 02/04/2025 from [facility] (abnormal results in bold): sed rate 23 0-30 Report sent for scanning. Allergies As of Date: 02/11/2025 (No Known Allergies) Date Reviewed: 01/16/2025 Reviewed by: Nanette Welch, LTI - Fully Assessed Reason for Visit: Results [...] this patient by: CAREGIVER José Miguel Swanson [facility] Problem List As Of Date 02/11/2025 Noted [...] arthritis [M16.10] (more content not included)... Normal [facility] CRPon 02-04-2025 C-REACTIVE PROT < 3.00 Normal 0.0-3.0 [facility] Comment on above: Order Comment: 107.1 Performed By: #### L 101.9900, L501.6710 #### [facility] [address] [place], [place], [address] CRP [Mass/Vol]Ordered By: Moreno on 02-04-2025 C-Reactive Protein Extended Range < 3.00 mg/L 0.0-3.0 [facility] Erythrocyte Sed Rateon 02-04 SED RATE 23 mm/hr Normal 0-30 [facility] Comment on above: Order Comment: 107.1 Performed By: #### L 101.9900, L501.6710 #### [facility] [address] [place], [place], [address] Erythrocyte sedimentation ra teOrdered By: Mario Mak on 02-04-2025 ESR (Bld) [Velocity] 23 mm/h 0-30 [facility] Serum or plasma C reactive p rotein measurement (mass/volume)Ordered By: Mario Mak on 02-04-2025 CRP [Mass/Vol] mg/L 0.0-3.0 [facility] CNOVon 01-16-2025 CNOV [facility] Absolute lymphocyte countOrd ered By: Mario Mak on 01-15-2025 Lymphocytes Auto (Unsp spec) [#/Vol] 1.16 10*3/uL 0.83-4.51 [facility] Absolute neutrophil countOrd ered By: Mario Mak on 01-15-2025 Neutrophils (Bld) [#/Vol] 5.9 10*3/uL 2.0-7.7 [facility] Anion gap in Serum or Plasma Ordered By: Mario Mak on 01-15-2025 Anion gap [Moles/Vol] 12 mmol/L 5-[address] [facility] Automated lymphocyte count a s percentage of total leukocytesOrdered By: Mario Mak on 01-15-2025 Lymphocytes/100 WBC Auto (Unsp spec) 14.3 % Low 19-41 [facility] BUN/creatinine ratioOrdered By: Mario Mak on 01-15-2025 Urea nitrogen/Creatinine [Mass ratio] 35.3 mg/mg High 10-20 [facility] Basic Metabolic Profile (BMP )on 01-15-2025 BUN/CRE 35.3 RATIO High 10-20 [facility] Comment on above: Order Comment: 107.1 Performed By: #### L 100.0100, L500.2500 #### [facility] [address] [place], [address] Calcium [Mass/Vol] 9.1 mg/dL Normal 7.6-11.0 [facility] Comment on above: Order Comment: 107.1 Performed By: #### L 100.0100, L500.2500 #### [facility] [address] [place], [address] Chloride [Moles/Vol] 101 mmol/L Normal 98-108 [facility] Comment on above: Order Comment: 107.1 Performed By: #### L 100.0100, L500.2500 #### [facility] [address] [place], [address] CO2 [Moles/Vol] 26.0 mmol/L Normal 21.0-32.0 [facility] Comment on above: Order Comment: 107.1 Performed By: #### L 100.0100, L500.2500 #### [facility] [address] [place], [address] Creatinine [Mass/Vol] 0.76 mg/dL Normal 0.70-1.[address] [facility] Comment on above: Order Comment: 107.1 Performed By: #### L 100.0100, L500.2500 #### [facility] [address] [place], [address] GAP 12 Normal 5-15 [facility] Comment on above: Order Comment: 107.1 Performed By: #### L 100.0100, L500.2500 #### [facility] [address] [place], [address] GFR/1.73 sq M.predicted among non-blacks MDRD (S/P/Bld) [Vol rate/Area] 75 mL/min/{1.73_m2} Normal >60 [facility] Comment on above: Order Comment: 107.1 Result Comment: mL/m in/1.73m2 CKD-EPI Creatinine Equation (2020) Performed By: #### L 100.0100, L500.2500 #### [facility] [address] [place], [address] Glucose [Mass/Vol] 108 mg/dL High 70-99 [facility] Comment on above: Order Comment: 107.1 Performed By: #### L 100.0100, L500.2500 #### [facility] [address] [place], [address] Potassium [Moles/Vol] 4.6 mmol/L Normal 3.3-5.[address] [facility] Comment on above: Order Comment: 107.1 Performed By: #### L 100.0100, L500.2500 #### [facility] [address] [place], [address] Sodium [Moles/Vol] 139 mmol/L Normal 133-145 [facility] Comment on above: Order Comment: 107.1 Performed By: #### L 100.0100, L500.2500 #### [facility] [address] [place], [address] Urea nitrogen [Mass/Vol] 27 mg/dL High 4-19 [facility] Comment on above: Order Comment: 107.1 Performed By: #### L 100.0100, L500.2500 #### [facility] [address] [place], [address] Basophil percentageOrdered B y: Mario Mak on 01-15-2025 Basophils/100 WBC (Bld) 0.5 % 0-1 [facility] CBC W/Diff, Automatedon Absolute Lymph 1.16 X10 3/uL Normal 0.83-4.51 [facility] Comment on above: Order Comment: 107.1 Performed By: #### L 100.0100, L500.2500 #### [facility] [address] [place], [address] Absolute Neut 5.9 X10 3/uL Normal 2.0-7.7 [facility] Comment on above: Order Comment: 107.1 Performed By: #### L 100.0100, L500.2500 #### [facility] [address] [place], [address] Basophils/100 WBC (Bld) 0.5 % Normal 0-1 [facility] Comment on above: Order Comment: 107.1 Performed By: #### L 100.0100, L500.2500 #### [facility] [address] [place], [address] Eosinophils/100 WBC (Bld) 4.1 % Normal 0-5 [facility] Comment on above: Order Comment: 107.1 Performed By: #### L 100.0100, L500.2500 #### [facility] [address] [place], [address] Erythrocyte distribution width (RBC) [Ratio] 16.0 % High 11.6-14.6 [facility] Comment on above: Order Comment: 107.1 Performed By: #### L 100.0100, L500.2500 #### [facility] [address] [place], [address] Hematocrit (Bld) [Volume fraction] 29.0 % Low 37-47 [facility] Comment on above: Order Comment: 107.1 Performed By: #### L 100.0100, L500.2500 #### [facility] [address] [place], [address] Hemoglobin (Bld) [Mass/Vol] 9.4 g/dL Low 12.0-15.0 [facility] Comment on above: Order Comment: 107.1 Performed By: #### L 100.0100, L500.2500 #### [facility] [address] [place], [address] IG% 1.100 High 0.0-0.9 [facility] Comment on above: Order Comment: 107.1 Result Comment: IG% - Immature Granulocytes (promyelocytes, myelocytes and metamyelocytes) > 1% indicates that a LEFT SHIFT is Present. Performed By: #### L 100.0100, L500.2500 #### [facility] [address] [place], [address] Lymphocytes/100 WBC (Bld) 14.3 % Low 19-41 [facility] Comment on above: Order Comment: 107.1 Performed By: #### L 100.0100, L500.2500 #### [facility] [address] [place], [address] MCH (RBC) [Entitic mass] 29.5 pg Normal 27.0-32.0 [facility] Comment on above: Order Comment: 107.1 Performed By: #### L 100.0100, L500.2500 #### [facility] [address] [place], [address] MCHC (RBC) [Mass/Vol] 32.4 g/dL Normal 32-[address] [facility] Comment on above: Order Comment: 107.1 Performed By: #### L 100.0100, L500.2500 #### [facility] [address] [place], [address] MCV (RBC) [Entitic vol] 90.9 fL Normal 81-99 [facility] Comment on above: Order Comment: 107.1 Performed By: #### L 100.0100, L500.2500 #### [facility] [address] [place], [address] Monocytes/100 WBC (Bld) 8.1 % Normal 0-10 [facility] Comment on above: Order Comment: 107.1 Performed By: #### L 100.0100, L500.2500 #### [facility] [address] [place], [address] Neutrophils/100 WBC (Bld) 71.9 % High 47-70 [facility] Comment on above: Order Comment: 107.1 Performed By: #### L 100.0100, L500.2500 #### [facility] [address] [place], [address] Nucleated RBC (Bld) [#/Vol] 0 10*3/uL Normal 0-5 [facility] Comment on above: Order Comment: 107.1 Performed By: #### L 100.0100, L500.2500 #### [facility] [address] [place], [address] Platelet mean volume (Bld) [Entitic vol] 9.4 fL Normal 6.2-12.0 [facility] Comment on above: Order Comment: 107.1 Performed By: #### L 100.0100, L500.2500 #### [facility] [address] [place], [address] Platelets (Bld) [#/Vol] 390 10*3/uL Normal 150-450 [facility] Comment on above: Order Comment: 107.1 Performed By: #### L 100.0100, L500.2500 #### [facility] [address] [place], [address] RBC (Bld) [#/Vol] 3.19 10*6/uL Low 4.2-5.4 [facility] Comment on above: Order Comment: 107.1 Performed By: #### L 100.0100, L500.2500 #### [facility] [address] [place], [address] RDW SD 53.4 fl High 35.1-43.9 [facility] Comment on above: Order Comment: 107.1 Performed By: #### L 100.0100, L500.2500 #### [facility] [address] [place], [address] WBC (Bld) [#/Vol] 8.1 10*3/uL Normal 4.4-11.0 [facility] Comment on above: Order Comment: 107.1 Performed By: #### L 100.0100, L500.2500 #### [facility] [address] [place], [address] Carbon dioxide, total [Moles /volume] in Central venous bloodOrdered By: Mario Mak on 01-15-2025 CO2 [Moles/Vol] 26.0 mmol/L 21.0-32.0 [facility] Chloride assayOrdered By: Moreno on 01-15-2025 Chloride [Moles/Vol] 101 mmol/L 98-108 [facility] Eosinophil percentageOrdered By: Mario Mak on 01-15-2025 Eosinophils/100 WBC (Bld) 4.1 % 0-5 [facility] Erythrocyte distribution wid th (RBC) [Ratio]Ordered By: Mario Mak on 01-15-2025 Erythrocyte distribution width (RBC) [Entitic vol] 53.4 fL High 35.1-43.9 [facility] Erythrocyte distribution wid th ratioOrdered By: Mario Mak on 01-15-2025 Erythrocyte distribution width (RBC) [Ratio] 16.0 % High 11.6-14.6 [facility] Erythrocyte distribution wid th standard deviationOrdered By: Mario Mak on 01-15-2025 Erythrocyte distribution width (RBC) [Ratio] 53.4 fl High 35.1-43.9 [facility] GFR/1.73 sq M.predicted ida g non-blacks MDRD (S/P/Bld) [Vol rate/Area]Ordered By: Mario Mak on 01-15-2025 Estimated GFR (MDRD) Non-Af Amer 75 >60 [facility] Comment on above: mL/min/1.73m2 CKD-EP I Creatinine Equation (2020) Glomerular filtration rate ( GFR) estimation/1.73 sq m using serum, plasma, or whole bOrdered By: Mario Mak on 01-15-2025 GFR/1.73 sq M.predicted among non-blacks MDRD (S/P/Bld) [Vol rate/Area] 75 mL/min/{1.73_m2} >60 [facility] Comment on above: mL/min/1.73m2 CKD-EP I Creatinine Equation (2020) Hematocrit Auto (Bld) [Volum e fraction]Ordered By: Mario Mak on 01-15-2025 Hematocrit (Bld) [Volume fraction] 29.0 % Low 37-47 [facility] Hemoglobin measurementOrdere d By: Mario Mak on 01-15-2025 Hemoglobin (Bld) [Mass/Vol] 9.4 g/dL Low 12.0-15.0 [facility] Immature granulocytes/100 WB C Auto (Bld)Ordered By: Mario Mak on 01-15-2025 Immature granulocytes/100 WBC (Bld) 1.100 % High 0.0-0.9 [facility] Comment on above: IG% - Immature Granu locytes (promyelocytes, myelocytes and metamyelocytes) > 1% indicates that a LEFT SHIFT is Present. Lymphocytes Auto (Unsp spec) [#/Vol]Ordered By: Mario Mak on 01-15-2025 Lymphocytes (Bld) [#/Vol] 1.16 10*3/uL 0.83-4.51 [facility] Lymphocytes/100 WBC Auto (Un sp spec)Ordered By: Mario Mak on 01-15-2025 Lymphocytes/100 WBC (Bld) 14.3 % Low 19-41 [facility] MCV (mean corpuscular volume ) determinationOrdered By: Mario Mak on 01-15-2025 MCV (RBC) [Entitic vol] 90.9 fL 81-99 [facility] Mean corpuscular hemoglobin (MCH) determinationOrdered By: Mario Mak on 01-15-2025 MCH (RBC) [Entitic mass] 29.5 pg 27.0-32.0 [facility] Mean corpuscular hemoglobin concentration (MCHC) determinationOrdered By: Mario Mak on 01-15-2025 MCHC (RBC) [Mass/Vol] 32.4 g/dL 32-[address] [facility] Mean platelet volume determi nationOrdered By: Mario Mak on 01-15-2025 Platelet mean volume (Bld) [Entitic vol] 9.4 fL 6.2-12.0 [facility] Monocyte percentageOrdered B y: Mario Mak on 01-15-2025 Monocytes/100 WBC (Bld) 8.1 % 0-10 [facility] Neutrophil percentageOrdered By: Mario Mak on 01-15-2025 Neutrophils/100 WBC (Bld) 71.9 % High 47-70 [facility] Nucleated red blood cell per centageOrdered By: Mario Mak on 01-15-2025 Nucleated RBC/100 WBC (Bld) [Ratio] 0 % 0-5 [facility] Platelet countOrdered By: Moreno on 01-15-2025 Platelets (Bld) [#/Vol] 390 10*3/uL 150-450 [facility] Potassium (Unsp spec) [Mass/ Vol]Ordered By: Mario Mak on 01-15-2025 Potassium [Moles/Vol] 4.6 mmol/L 3.3-5.[address] [facility] Potassium measurement (mass/ volume)Ordered By: Mario Mak on 01-15-2025 Potassium (Unsp spec) [Mass/Vol] 4.6 mmol/L 3.3-5.1 [facility] RBC Auto (Bld) [#/Vol]Ordere d By: Mario Mak on 01-15-2025 RBC (Bld) [#/Vol] 3.19 10*6/uL Low 4.2-5.4 [facility] Serum creatinine measurement (mass/volume)Ordered By: Mario Mak on 01-15-2025 Creatinine [Mass/Vol] 0.76 mg/dL 0.70-1.[address] [facility] Serum glucose measurement (m ass/volume)Ordered By: Mario Mak on 01-15-2025 Glucose [Mass/Vol] 108 mg/dL High 70-99 [facility] Serum or plasma calcium roma urement (mass/volume)Ordered By: Mario Mak on 01-15-2025 Calcium [Mass/Vol] 9.1 mg/dL 7.6-11.0 [facility] Serum or plasma urea nitroge n measurement (mass/volume)Ordered By: Mario Mak on 01-15-2025 Urea nitrogen [Mass/Vol] 27 mg/dL High 4-19 [facility] Sodium levelOrdered By: Mario Mak on 01-15-2025 Sodium [Moles/Vol] 139 mmol/L 133-145 [facility] White blood cell (WBC) count Ordered By: Mario Mak on 01-15-2025 WBC (Bld) [#/Vol] 8.1 10*3/uL 4.4-11.0 [facility] Absolute lymphocyte countOrd ered By: Mario Mak on 01-07-2025 Lymphocytes Auto (Unsp spec) [#/Vol] 0.98 10*3/uL 0.83-4.51 [facility] Absolute neutrophil countOrd ered By: Mario Mak on 01-07-2025 Neutrophils (Bld) [#/Vol] 5.7 10*3/uL 2.0-7.7 [facility] Albumin to globulin ratioOrd ered By: Mario Mak on 01-07-2025 Albumin/Globulin [Mass ratio] 0.6 {ratio} Low 0.9-2.4 [facility] Automated lymphocyte count a s percentage of total leukocytesOrdered By: Mario Mak on 01-07-2025 Lymphocytes/100 WBC Auto (Unsp spec) 12.6 % Low 19-41 [facility] Basophil percentageOrdered B y: Mario Mak on 01-07-2025 Basophils/100 WBC (Bld) 0.5 % 0-1 [facility] Bilirubin, totalOrdered By: Mario Mak on 01-07-2025 Bilirubin [Mass/Vol] 0.20 mg/dL 0.20-1.00 [facility] Comment on above: For patients on eltr ombopag therapy, use of Dimension Regan TBIL is not recommended. Blood urea nitrogen (BUN)/cr eatinine ratioOrdered By: Mario Mak on 01-07-2025 Urea nitrogen/Creatinine [Mass ratio] 37.0 mg/mg High 10-20 [facility] CBC W/Diff, Automatedon 12-16 Absolute Lymph 0.98 X10 3/uL Normal 0.83-4.51 [facility] Comment on above: Order Comment: 107-1 Performed By: #### L 101.9900, L100.0100, L500.4050 #### [facility] [address] [place], [address] Absolute Neut 5.7 X10 3/uL Normal 2.0-7.7 [facility] Comment on above: Order Comment: 107-1 Performed By: #### L 101.9900, L100.0100, L500.4050 #### [facility] [address] [place], [address] Basophils/100 WBC (Bld) 0.5 % Normal 0-1 [facility] Comment on above: Order Comment: 107-1 Performed By: #### L 101.9900, L100.0100, L500.4050 #### [facility] [address] [place], [address] Eosinophils/100 WBC (Bld) 3.2 % Normal 0-5 [facility] Comment on above: Order Comment: 107-1 Performed By: #### L 101.9900, L100.0100, L500.4050 #### [facility] [address] [place], [address] Erythrocyte distribution width (RBC) [Ratio] 16.5 % High 11.6-14.6 [facility] Comment on above: Order Comment: 107-1 Performed By: #### L 101.9900, L100.0100, L500.4050 #### [facility] [address] [place], [address] Hematocrit (Bld) [Volume fraction] 28.5 % Low 37-47 [facility] Comment on above: Order Comment: 107-1 Performed By: #### L 101.9900, L100.0100, L500.4050 #### [facility] [address] [place], [address] Hemoglobin (Bld) [Mass/Vol] 8.9 g/dL Low 12.0-15.0 [facility] Comment on above: Order Comment: 107-1 Performed By: #### L 101.9900, L100.0100, L500.4050 #### [facility] [address] [place], [address] IG% 0.600 Normal 0.0-0.9 [facility] Comment on above: Order Comment: 107-1 Result Comment: IG% - Immature Granulocytes (promyelocytes, myelocytes and metamyelocytes) > 1% indicates that a LEFT SHIFT is Present. Performed By: #### L 101.9900, L100.0100, L500.4050 #### [facility] [address] [place], [address] Lymphocytes/100 WBC (Bld) 12.6 % Low 19-41 [facility] Comment on above: Order Comment: 107-1 Performed By: #### L 101.9900, L100.0100, L500.4050 #### [facility] [address] [place], [address] MCH (RBC) [Entitic mass] 28.7 pg Normal 27.0-32.0 [facility] Comment on above: Order Comment: 107-1 Performed By: #### L 101.9900, L100.0100, L500.4050 #### [facility] [address] [place], [address] MCHC (RBC) [Mass/Vol] 31.2 g/dL Low 32-[address] [facility] Comment on above: Order Comment: 107-1 Performed By: #### L 101.9900, L100.0100, L500.4050 #### [facility] [address] [place], [address] MCV (RBC) [Entitic vol] 91.9 fL Normal 81-99 [facility] Comment on above: Order Comment: 107-1 Performed By: #### L 101.9900, L100.0100, L500.4050 #### [facility] [address] [place], [address] Monocytes/100 WBC (Bld) 9.9 % Normal 0-10 [facility] Comment on above: Order Comment: 107-1 Performed By: #### L 101.9900, L100.0100, L500.4050 #### [facility] [address] [place], [address] Neutrophils/100 WBC (Bld) 73.2 % High 47-70 [facility] Comment on above: Order Comment: 107-1 Performed By: #### L 101.9900, L100.0100, L500.4050 #### [facility] [address] [place], [address] Nucleated RBC (Bld) [#/Vol] 0 10*3/uL Normal 0-5 [facility] Comment on above: Order Comment: 107-1 Performed By: #### L 101.9900, L100.0100, L500.4050 #### [facility] [address] [place], [address] Platelet mean volume (Bld) [Entitic vol] 9.8 fL Normal 6.2-12.0 [facility] Comment on above: Order Comment: 107-1 Performed By: #### L 101.9900, L100.0100, L500.4050 #### [facility] [address] [place], [address] Platelets (Bld) [#/Vol] 319 10*3/uL Normal 150-450 [facility] Comment on above: Order Comment: 107-1 Performed By: #### L 101.9900, L100.0100, L500.4050 #### [facility] [address] [place], [address] RBC (Bld) [#/Vol] 3.10 10*6/uL Low 4.2-5.4 [facility] Comment on above: Order Comment: 107-1 Performed By: #### L 101.9900, L100.0100, L500.4050 #### [facility] [address] [place], [address] RDW SD 56.5 fl High 35.1-43.9 [facility] Comment on above: Order Comment: 107-1 Performed By: #### L 101.9900, L100.0100, L500.4050 #### [facility] [address] [place], [address] WBC (Bld) [#/Vol] 7.8 10*3/uL Normal 4.4-11.0 [facility] Comment on above: Order Comment: 107-1 Performed By: #### L 101.9900, L100.0100, L500.4050 #### [facility] [address] [place], [address] Carbon dioxide measurementOr dered By: Mario Mak on 01-07-2025 CO2 [Moles/Vol] 28.0 mmol/L 21.0-32.0 [facility] Chloride measurementOrdered By: Mario Mak on 01-07-2025 Chloride [Moles/Vol] 105 mmol/L 98-107 [facility] Comprehensive Metabolic Prof ilon 01-07-2025 Albumin [Mass/Vol] 2.1 g/dL Low 3.2-5.0 [facility] Comment on above: Performed By: #### L 501.6710, L101.9900 #### [facility] [address] [place], [address] Albumin/Globulin [Mass ratio] 0.6 {ratio} Low 0.9-2.4 [facility] Comment on above: Performed By: #### L 501.6710, L101.9900 #### [facility] [address] [place], [address] ALK P 95 U/L Normal 45-117 [facility] Comment on above: Performed By: #### L 501.6710, L101.9900 #### [facility] [address] [place], [address] ALT [Catalytic activity/Vol] U/L Low 13-56 [facility] Comment on above: Performed By: #### L 501.6710, L101.9900 #### [facility] [address] [place], [address] AST [Catalytic activity/Vol] 21 U/L Normal 15-37 [facility] Comment on above: Performed By: #### L 501.6710, L101.9900 #### [facility] [address] [place], [address] Bilirubin [Mass/Vol] 0.20 mg/dL Normal 0.20-1.00 [facility] Comment on above: Result Comment: For patients on eltrombopag therapy, use of Dimension Regan TBIL is not recommended. Performed By: #### L 501.6710, L101.9900 #### [facility] [address] [place], [address] BUN/CRE 37.0 RATIO High 10-20 [facility] Comment on above: Performed By: #### L 501.6710, L101.9900 #### [facility] [address] [place], [address] CA,Total 8.6 mg/dL Normal 8.5-10.1 [facility] Comment on above: Performed By: #### L 501.6710, L101.9900 #### [facility] [address] [place], [address] Chloride [Moles/Vol] 105 mmol/L Normal 98-107 [facility] Comment on above: Performed By: #### L 501.6710, L101.9900 #### [facility] [address] [place], [address] CO2 [Moles/Vol] 28.0 mmol/L Normal 21.0-32.0 [facility] Comment on above: Performed By: #### L 501.6710, L101.9900 #### [facility] [address] [place], [address] Creatinine [Mass/Vol] 0.76 mg/dL Normal 0.55-1.[address] [facility] Comment on above: Result Comment: The validity of the calculated GFR GFRAA in patients over 70 years has not been determined. Clinical correlation is essential. Performed By: #### L 501.6710, L101.9900 #### [facility] [address] [place], [address] EST GFR - AA 93 mL/min Normal >60 [facility] Comment on above: Result Comment: Afri can Cymraes GFR Calc Performed By: #### L 501.6710, L101.9900 #### [facility] [address] [place], [address] GAP 7 Normal 5-15 [facility] Comment on above: Performed By: #### L 501.6710, L101.9900 #### [facility] [address] [place], [address] GFR/1.73 sq M.predicted among non-blacks MDRD (S/P/Bld) [Vol rate/Area] 77 mL/min/{1.73_m2} Normal >60 [facility] Comment on above: Result Comment: Non- GFR Calc Performed By: #### L 501.6710, L101.9900 #### [facility] [address] [place], [address] Globulin (S) [Mass/Vol] 3.4 g/dL Normal 2.2-4.2 [facility] Comment on above: Performed By: #### L 501.6710, L101.9900 #### [facility] [address] [place], [address] Glucose [Mass/Vol] 58 mg/dL Low 74-106 [facility] Comment on above: Performed By: #### L 501.6710, L101.9900 #### [facility] [address] [place], [address] Potassium [Moles/Vol] 4.1 mmol/L Normal 3.5-5.[address] [facility] Comment on above: Performed By: #### L 501.6710, L101.9900 #### [facility] [address] [place], [address] Sodium [Moles/Vol] 139 mmol/L Normal 136-145 [facility] Comment on above: Performed By: #### L 501.6710, L101.9900 #### [facility] [address] [place], [address] T PROT 5.5 g/dL Low 6.4-8.2 [facility] Comment on above: Performed By: #### L 501.6710, L101.9900 #### [facility] [address] [place], [address] Urea nitrogen [Mass/Vol] 28 mg/dL High 7-18 [facility] Comment on above: Performed By: #### L 501.6710, L101.9900 #### [facility] [address] [place], [address] Eosinophil percentageOrdered By: Mario Mak on 01-07-2025 Eosinophils/100 WBC (Bld) 3.2 % 0-5 [facility] Erythrocyte Sed Rateon 01-07 SED RATE 41 mm/hr High 0-30 [facility] Comment on above: Order Comment: 107-1 Performed By: #### L 101.9900, L100.0100, L500.4050 #### [facility] [address] [place], [address] Erythrocyte distribution wid th (RBC) [Ratio]Ordered By: Mario Mak on 01-07-2025 Erythrocyte distribution width (RBC) [Entitic vol] 56.5 fL High 35.1-43.9 [facility] Erythrocyte distribution wid th ratioOrdered By: Mario Mak on 01-07-2025 Erythrocyte distribution width (RBC) [Ratio] 16.5 % High 11.6-14.6 [facility] Erythrocyte distribution wid th standard deviationOrdered By: Mario Mak on 01-07-2025 Erythrocyte distribution width (RBC) [Ratio] 56.5 fl High 35.1-43.9 [facility] Erythrocyte sedimentation ra teOrdered By: Mario Mak on 01-07-2025 ESR (Bld) [Velocity] 41 mm/h High 0-30 [facility] Estimated glomerular filtrat ion rate (GFR) AmericanOrdered By: Mario Mak on 01-07-2025 Estimated GFR (MDRD) Amer 93 mL/min >60 [facility] Comment on above: GFR Calc Glomerular filtration rate ( GFR) estimationOrdered By: Mario Mak on 01-07-2025 Estimated GFR (MDRD) Non-Af Amer 77 mL/min >60 [facility] Comment on above: Non- GFR Calc GFR/1.73 sq M.predicted among non-blacks MDRD (S/P/Bld) [Vol rate/Area] 77 mL/min/{1.73_m2} >60 [facility] Comment on above: Non- GFR Calc Glucose measurementOrdered B y: Mario Mak on 01-07-2025 Glucose [Mass/Vol] 58 mg/dL Low 74-106 [facility] Hematocrit Auto (Bld) [Volum e fraction]Ordered By: Mario Mak on 01-07-2025 Hematocrit (Bld) [Volume fraction] 28.5 % Low 37-47 [facility] Hemoglobin measurementOrdere d By: Mario Mak on 01-07-2025 Hemoglobin (Bld) [Mass/Vol] 8.9 g/dL Low 12.0-15.0 [facility] Immature granulocytes/100 WB C Auto (Bld)Ordered By: Mario Mak on 01-07-2025 Immature granulocytes/100 WBC (Bld) 0.600 % 0.0-0.9 [facility] Comment on above: IG% - Immature Granu locytes (promyelocytes, myelocytes and metamyelocytes) > 1% indicates that a LEFT SHIFT is Present. Laboratory - Chemistry and C hemistry - challengeOrdered By: Mario Mak on 01-07-2025 AST [Catalytic activity/Vol] 21 U/L 15-37 [facility] Lymphocytes Auto (Unsp spec) [#/Vol]Ordered By: Mario Mak on 01-07-2025 Lymphocytes (Bld) [#/Vol] 0.98 10*3/uL 0.83-4.51 [facility] Lymphocytes/100 WBC Auto (Un sp spec)Ordered By: Mario Mak on 01-07-2025 Lymphocytes/100 WBC (Bld) 12.6 % Low 19-41 [facility] MCV (mean corpuscular volume ) determinationOrdered By: Mario Mak on 01-07-2025 MCV (RBC) [Entitic vol] 91.9 fL 81-99 [facility] Mean corpuscular hemoglobin (MCH) determinationOrdered By: Mario Mak on 01-07-2025 MCH (RBC) [Entitic mass] 28.7 pg 27.0-32.0 [facility] Mean corpuscular hemoglobin concentration (MCHC) determinationOrdered By: Mario Mak on 01-07-2025 MCHC (RBC) [Mass/Vol] 31.2 g/dL Low 32-[address] [facility] Mean platelet volume determi nationOrdered By: Mario Mak on 01-07-2025 Platelet mean volume (Bld) [Entitic vol] 9.8 fL 6.2-12.0 [facility] Monocyte percentageOrdered B y: Mario Mak on 01-07-2025 Monocytes/100 WBC (Bld) 9.9 % 0-10 [facility] Neutrophil percentageOrdered By: Mario Mak on 01-07-2025 Neutrophils/100 WBC (Bld) 73.2 % High 47-70 [facility] Nucleated red blood cell per centageOrdered By: Mario Mak on 01-07-2025 Nucleated RBC/100 WBC (Bld) [Ratio] 0 % 0-5 [facility] Platelet countOrdered By: Moreno on 01-07-2025 Platelets (Bld) [#/Vol] 319 10*3/uL 150-450 [facility] Potassium measurementOrdered By: Mario Mak on 01-07-2025 Potassium [Moles/Vol] 4.1 mmol/L 3.5-5.[address] [facility] RBC Auto (Bld) [#/Vol]Ordere d By: Mario Mak on 01-07-2025 RBC (Bld) [#/Vol] 3.10 10*6/uL Low 4.2-5.4 [facility] Serum anion gap measurementO rdered By: Mario Mak on 01-07-2025 Anion gap [Moles/Vol] 7 mmol/L 5-[address] [facility] Serum globulin measurementOr dered By: Mario Mak on 01-07-2025 Globulin (S) [Mass/Vol] 3.4 g/dL 2.2-4.2 [facility] Serum or plasma alanine melara otransferase (ALT) measurementOrdered By: Mario Mak on 01-07-2025 ALT [Catalytic activity/Vol] U/L Low 13-56 [facility] Serum or plasma albumin roma urement (mass/volume)Ordered By: Mario Mak on 01-07-2025 Albumin [Mass/Vol] 2.1 g/dL Low 3.2-5.0 [facility] Serum or plasma alkaline krystal sphatase measurementOrdered By: Mario Mak on 01-07-2025 ALP [Catalytic activity/Vol] 95 U/L 45-117 [facility] Serum or plasma calcium roma urement (mass/volume)Ordered By: Mario Mak on 01-07-2025 Calcium [Mass/Vol] 8.6 mg/dL 8.5-10.1 [facility] Serum or plasma creatinine m easurement (mass/volume)Ordered By: Mario Mak on 01-07-2025 Creatinine [Mass/Vol] 0.76 mg/dL 0.55-1.[address] [facility] Comment on above: The validity of the calculated GFR & GFRAA in patients over 70 years has not been determined. Clinical correlation is essential. Serum or plasma urea nitroge n measurement (mass/volume)Ordered By: Mario Mak on 01-07-2025 Urea nitrogen [Mass/Vol] 28 mg/dL High 7-18 [facility] Sodium levelOrdered By: Mario Mak on 01-07-2025 Sodium [Moles/Vol] 139 mmol/L 136-145 [facility] Total proteinOrdered By: Shwetha Mak on 01-07-2025 Protein [Mass/Vol] 5.5 g/dL Low 6.4-8.2 [facility] White blood cell (WBC) count Ordered By: Mario Mak on 01-07-2025 WBC (Bld) [#/Vol] 7.8 10*3/uL 4.4-11.0 [facility] Pyridoxine [Mass/Vol]on 12-16 Interpretation and review of laboratory results Abnormal [facility] VITAMIN B6/PYRIDOXINon 01-06 Pyridoxine [Mass/Vol] 13.8 nmol/L Low 20.0 - 125.0 nmol/L [facility] Comment on above: INTERPRETIVE INFORMA TION: Vitamin B6 (Pyridoxal 5-Phosphate) Pyridoxal 5'-phosphate measured in a specimen collected following an 8-hour or overnight fast accurately indicates vitamin B6 nutritional status. Non-fasting specimen concentration reflects recent vitamin intake. This test was developed and its performance characteristics determined by [facility]. It has not been cleared or approved by the [place] Food and Drug Administration. This test was performed in a CLIA certified laboratory and is intended for clinical purposes. Performed By: [facility] [address] [place] [address] Steward/Stewardess: Marcellus Raza MD, PhD [facility] Number: [id number] OVon 01-04-2025 [facility] Office Visit (MARJORIE ) YUSUF MEDINA ([id number]) 1935 F [place] Date Time Provider Department [...] with dramatic improvement Currently she is in [place] and here with AVELINA and nurse aid who gives the history Currently she is pain free Also spoke with her nurse [place] who states patient does nto complain of pain, pretty sedentary. No specific complaints at [place] per nurse Currently doing well, no pain at present Family states after debridement of rt ankle- patient feels weak and does not want to walk around Was living alone until 2 months ago and now at [place]. Prior to debridement , patient was not [...] L REMV CATARACT EXTRACAP,INSERT LENS Bilateral 2020 [facility] predniSONE (DELTASONE) 5 mg tablet Take [...] by mouth (more content not included)... Normal [facility] CNPNon 01-03-2025 [facility] Telephone (4CQ) YUSUF MEDINA ([id number]) 1935 F [place] Date Time Provider Department 01/03/25 MIGDALIA CRAMER 4CQ During your visit today, we recorded the following information about you: Alicia Coffey 01/03/2025 12:30 PM Addendum Received call from [facility]. The bank representative has appointment with patient's sons this afternoon at 2 pm and is requesting Advanced Directive/POA paperwork that was scanned in on 12/31. Advised to send records request, but she is concerned about not having this paperwork by 2 pm meeting. [employer] can be reached at [phone]. Fax number given for records request as well. Jame Tam MA 01/03/2025 4:16 PM Signed Records release was not signed. Please review and advice. Willie Kaur APRN.DRAKE 01/04/2025 9:45 AM Signed Please advise [facility] that if patient signs record release, they can get any records they need from [facility] medical records. Or family can sign record request at senior care and senior care can fax Family Medicine the records request and I can send what I can. Our fax is [phone]. Willie Kaur APRN.Keke Page, RN 01/04/2025 12:12 PM Signed Spoke with a confidential secretary at [facility], he took the info again to get us a signed records release faxed to the office. Please watch for fax Willie Kaur APRN.DRAKE 01/04/2025 4:20 PM Signed The initial note indicates that a "bank representative" is calling and gave return phone number [phone]. I called this number and phone rang and rang numerous times. No voice mail. I can print of POA, stamp and fax since this is a facility to facility request. Given to nursing. If the "bank representative" needs anything else and calls back, Please ask for name and direct line so that return call can be made. Thank you. Willie Kaur APRN.Sandrita Arevalo LPN 01/04/2025 4:29 PM Signed Received record release from [facility]. Faxed to number provided on [...] this patient by: CAREGIVER José Miguel Swanson [facility] Problem List As Of Date 01/03/2025 Noted Resolved Osteoarth NOS-other site [M19.90] 09/15/2011 BENIGN HYPERTENSION [I10] 12/01/2016 Diabetes mellitus (HCC) [E11.9] 04/10/2003 Esophageal reflux [K21.9] 06/15/2006 Lumbago [M54.50] 05/31/2007 09/15/2011 Urgency of urination [R39.15] (more content not included)... Normal [facility] COPPER BLOODon 01-03-2025 Copper [Mass/Vol] 128 ug/dL 80 - 155 ug/dL [facility] Comment on above: This test was corina jiang, and its performance characteristics determined by the [facility] Department of Pathology and Laboratory Medicine. It has not been cleared or approved by the FDA. The [facility] Department of Pathology and Laboratory Medicine is regulated under CLIA as qualified to perform high-complexity testing. This test is used for clinical purposes. It should not be regarded as investigational or for research. Interpretation and review of laboratory results Normal [facility] FERRITINon 01-03-2025 Ferritin [Mass/Vol] 865 ng/mL High 14.7 - 2 05.1 ng/mL [facility] FOLATE, SERUMon 01-03-2025 Folate [Mass/Vol] 14.8 ng/mL 4.7 - PINF ng/mL [facility] Ferritin [Mass/Vol]on 2024 Interpretation and review of laboratory results Abnormal [facility] Iron and Iron binding capaci ty panelon 01-03-2025 Interpretation and review of laboratory results Normal [facility] Iron [Mass/Vol] 46 ug/dL 41 - 186 ug/dL [facility] Iron binding capacity [Mass/Vol] 245 ug/dL 232 - 386 ug/dL [facility] Iron/TIBC [Molar ratio] 18.8 % 15.0 - 57.0 % [facility] No Panel InformationOrdered By: Ok Mederos on 01-03-2025 [facility] No Panel Informationon 01-03 Interpretation and review of laboratory results Normal [facility] VITAMIN B12on 01-03-2025 Cobalamin (Vitamin B12) [Mass/Vol] 582 pg/mL 232 - 1245 pg/mL [facility] ZINC BLDOrdered By: kO da silva on 01-03-2025 Zinc [Mass/Vol] 56 ug/dL Low 60 - 120 ug/dL [facility] Comment on above: This test was develo ped, and its performance characteristics determined by the [facility] Department of Pathology and Laboratory Medicine. It has not been cleared or approved by the FDA. The [facility] Department of Pathology and Laboratory Medicine is regulated under CLIA as qualified to perform high-complexity testing. This test is used for clinical purposes. It should not be regarded as investigational or for research. Zinc [Mass/Vol]Ordered By: Ricardo Mederos on 01-03-2025 Interpretation and review of laboratory results Abnormal [facility] CBC W Auto Differential pane l (Bld)on 01-02-2025 Basophils (Bld) [#/Vol] 0.03 10*3/uL [facility] Basophils/100 WBC (Bld) 0.3 % C [facility] Differential cell count method Nom (Bld) Auto [facility] Eosinophils (Bld) [#/Vol] 0.3 10*3/uL [facility] Eosinophils/100 WBC (Bld) 2.9 % [facility] Erythrocyte distribution width (RBC) [Ratio] 17.2 % High 11.5 - 15.0 % [facility] Hematocrit (Bld) [Volume fraction] 34.1 % Low 36.0 - 46.0 % [facility] Hemoglobin (Bld) [Mass/Vol] 10.5 g/dL Low 11.5 - 15.5 g/dL [facility] Immature granulocytes (Bld) [#/Vol] 0.1 10*3/uL High [facility] Immature granulocytes/100 WBC (Bld) 1 % [facility] Interpretation and review of laboratory results Abnormal [facility] Lymphocytes (Bld) [#/Vol] 0.78 10*3/uL Low [facility] Lymphocytes/100 WBC (Bld) 7.5 % [facility] MCH (RBC) [Entitic mass] 28.5 pg 26.0 - 34.0 pg [facility] MCHC (RBC) [Mass/Vol] 30.8 g/dL 30.5 - 36.0 g/dL [facility] MCV (RBC) [Entitic vol] 92.4 fL 80.0 - 100.0 fL [facility] Monocytes (Bld) [#/Vol] 0.61 10*3/uL [facility] Monocytes/100 WBC (Bld) 5.9 % C [facility] Neutrophils (Bld) [#/Vol] 8.56 10*3/uL High [facility] Neutrophils/100 WBC (Bld) 82.4 % [facility] Nucleated RBC (Bld) [#/Vol] [facility] Nucleated RBC/100 WBC (Bld) [Ratio] 0 % /100 WBC [facility] Platelet mean volume (Bld) [Entitic vol] 8.7 fL Low 9.0 - 12.7 fL [facility] Platelets (Bld) [#/Vol] 362 10*3/uL [facility] RBC (Bld) [#/Vol] 3.69 10*6/uL Low 3.90 - 5.2 0 m/uL [facility] WBC (Bld) [#/Vol] 10.38 10*3/uL [facility] Basophils (Bld) [#/Vol] 0.03 10*3/uL Normal <0.11 [facility] Comment on above: Order Comment: Speci men Type: BLOOD SPECIMENOrdering Facility: [facility] Address: [address] [place] [address] Performed By: #### 5 7021-8 ####[facility] LABCLIA [id number] [address] [place] Basophils/100 WBC (Bld) 0.3 % Normal [facility] Comment on above: Order Comment: Speci men Type: BLOOD SPECIMENOrdering Facility: [facility] Address: [address] [place] [address] Performed By: #### 5 7021-8 ####[facility] LABCLIA [id number] [address] [facility] Differential cell count method Nom (Bld) Auto Normal [facility] Comment on above: Order Comment: Speci men Type: BLOOD SPECIMENOrdering Facility: [facility] Address: [address] [place] [address] Performed By: #### 5 7021-8 ####[facility] LABCLIA [id number] [place] [address] [place] Eosinophils (Bld) [#/Vol] 0.30 10*3/uL Normal <0.46 [facility] Comment on above: Order Comment: Speci men Type: BLOOD SPECIMENOrdering Facility: [facility] Address: [address] [place] [address] Performed By: #### 5 7021-8 ####[facility] LABCLIA [id number] [address] STATES [facility] Eosinophils/100 WBC (Bld) 2.9 % Normal [facility] Comment on above: Order Comment: Speci men Type: BLOOD SPECIMENOrdering Facility: [facility] Address: [address] [place] [address] Performed By: #### 5 7021-8 ####[facility] LABCLIA [id number] [address] [place] Erythrocyte distribution width (RBC) [Ratio] 17.2 % High 11.5-15.0 [facility] Comment on above: Order Comment: Speci men Type: BLOOD SPECIMENOrdering Facility: [facility] Address: [address] [place] [address] Performed By: #### 5 7021-8 ####[facility] LABCLIA [id number] [place] [address] [place] Hematocrit (Bld) [Volume fraction] 34.1 % Low 36.0-46.0 [facility] Comment on above: Order Comment: Speci men Type: BLOOD SPECIMENOrdering Facility: [facility] Address: [address] [place] [address] Performed By: #### 5 7021-8 ####[facility] LABCLIA [id number] [place] [address] [place] Hemoglobin (Bld) [Mass/Vol] 10.5 g/dL Low 11.5-15.5 [facility] Comment on above: Order Comment: Speci men Type: BLOOD SPECIMENOrdering Facility: [facility] Address: [address] [place] [address] Performed By: #### 5 7021-8 ####[facility] LABCLIA [id number] [place] [address] [place] Immature granulocytes (Bld) [#/Vol] 0.10 10*3/uL High <0.10 [facility] Comment on above: Order Comment: Speci men Type: BLOOD SPECIMENOrdering Facility: [facility] Address: [address] [place] [address] Performed By: #### 5 7021-8 ####[facility] LABCLIA [id number] [place] [address] [place] Immature granulocytes/100 WBC (Bld) 1.0 % Normal [facility] Comment on above: Order Comment: Speci men Type: BLOOD SPECIMENOrdering Facility: [facility] Address: [address] [place] [address] Performed By: #### 5 7021-8 ####[facility] LABCLIA [id number] [place] [address] [place] Lymphocytes (Bld) [#/Vol] 0.78 10*3/uL Low 1.00-4.00 [facility] Comment on above: Order Comment: Speci men Type: BLOOD SPECIMENOrdering Facility: [facility] Address: [address] [place] [address] Performed By: #### 5 7021-8 ####[facility] LABCLIA [id number] [address] Lymphocytes/100 WBC (Bld) 7.5 % Normal [facility] Comment on above: Order Comment: Speci men Type: BLOOD SPECIMENOrdering Facility: [facility] Address: [address] [place] [address] Performed By: #### 5 7021-8 ####[facility] LABIA [id number] [address] MCH (RBC) [Entitic mass] 28.5 pg Normal 26.0-34.0 [facility] Comment on above: Order Comment: Speci men Type: BLOOD SPECIMENOrdering Facility: [facility] Address: [address] [place] [address] Performed By: #### 5 7021-8 ####[facility] LABCLIA [id number] [address] [place] MCHC (RBC) [Mass/Vol] 30.8 g/dL Normal 30.5-36.0 [facility] Comment on above: Order Comment: Speci men Type: BLOOD SPECIMENOrdering Facility: [facility] Address: [address] [place] [address] Performed By: #### 5 7021-8 ####[facility] LABCLIA [id number] [place] [address] [facility] [place] MCV (RBC) [Entitic vol] 92.4 fL Normal 80.0-100.0 C [facility] Comment on above: Order Comment: Speci men Type: BLOOD SPECIMENOrdering Facility: [facility] Address: [facility] [place] [address] Performed By: #### 5 7021-8 ####[facility] LABCLIA [id number] [place] [address] [place] Monocytes (Bld) [#/Vol] 0.61 10*3/uL Normal <0.87 [facility] Comment on above: Order Comment: Speci men Type: BLOOD SPECIMENOrdering Facility: [facility] Address: [address] [place] [address] Performed By: #### 5 7021-8 ####[facility] LABCLIA [id number] [place] [address] [place] Monocytes/100 WBC (Bld) 5.9 % Normal C [facility] Comment on above: Order Comment: Speci men Type: BLOOD SPECIMENOrdering Facility: [facility] Address: [address] [place] [address] Performed By: #### 5 7021-8 ####[facility] LABCLIA [id number] [place] [address] [place] Neutrophils (Bld) [#/Vol] 8.56 10*3/uL High 1.45-7.50 [facility] Comment on above: Order Comment: Speci men Type: BLOOD SPECIMENOrdering Facility: [facility] Address: [address] [place] [address] Performed By: #### 5 7021-8 ####[facility] LABCLIA [id number] [place] [address] [place] Neutrophils/100 WBC (Bld) 82.4 % Normal [facility] Comment on above: Order Comment: Speci men Type: BLOOD SPECIMENOrdering Facility: [facility] Address: [address] [place] [address] Performed By: #### 5 7021-8 ####[facility] LABCLIA [id number] [place] [address] [place] Nucleated RBC (Bld) [#/Vol] 10*3/uL Normal <0.01 [facility] Comment on above: Order Comment: Speci men Type: BLOOD SPECIMENOrdering Facility: [facility] Address: [address] [place] [address] Performed By: #### 5 7021-8 ####[facility] LABCLIA [id number] [place] [address] [place] Nucleated RBC/100 WBC (Bld) [Ratio] 0.0 /100 WBC Normal [facility] Comment on above: Order Comment: Speci men Type: BLOOD SPECIMENOrdering Facility: [facility] Address: [address] [place] [address] Performed By: #### 5 7021-8 ####[facility] LABIA [id number] [place] [address] [place] Platelet mean volume (Bld) [Entitic vol] 8.7 fL Low 9.0-12.7 [facility] Comment on above: Order Comment: Speci men Type: BLOOD SPECIMENOrdering Facility: [facility] Address: [address] [place] [address] Performed By: #### 5 7021-8 ####[facility] LABCLIA [id number] [place] [address] [place] Platelets (Bld) [#/Vol] 362 10*3/uL Normal 150-400 [facility] Comment on above: Order Comment: Speci men Type: BLOOD SPECIMENOrdering Facility: [facility] Address: [address] [place] [address] Performed By: #### 5 7021-8 ####[facility] LABCLIA [id number] [place] [address] [place] RBC (Bld) [#/Vol] 3.69 10*6/uL Low 3.90-5.20 [facility] Comment on above: Order Comment: Speci men Type: BLOOD SPECIMENOrdering Facility: [facility] Address: [address] [place] [address] Performed By: #### 5 7021-8 ####[facility] LABCLIA [id number] [place] [address] [place] WBC (Bld) [#/Vol] 10.38 10*3/uL Normal 3.70-11.00 [facility] Comment on above: Order Comment: Speci men Type: BLOOD SPECIMENOrdering Facility: [facility] Address: [address] [place] [address] Performed By: #### 5 7021-8 ####[facility] LABCLIA [id number] [place] [address] [facility] [place] CNOVSPon 01-02-2025 CNOVSP Visit (SP) Office (HEMAST) YUSUF MEDINA ([id number]) 1935 F [facility] Date Time Provider Department [...] L REMV CATARACT EXTRACAP,INSERT LENS Bilateral 2020 [facility] FAMILY HISTORY Problem Relation Age of [...] daily. amLODI (more content not included)... Normal [facility] CNPKelsie 01-02-2025 CNPN Telephone (HEMAST) YUSUF MEDINA ([id number]) 1935 F [place] Date Time Provider Department 01/02/25 ADITI LOPEZ During your visit today, we recorded the following information about you: Aditi Lopez LISW 01/02/2025 4:03 PM Signed SOCIAL WORK Date of Service: Thursday January 02, 2025 [facility] Gis Programmer (SW) Aditi Lopez attempted to contact Yusuf Medina by phone using chemical research technician services to complete the distress assessment. Yusuf has been diagnosed with Normocytic anemia. She flagged for moderate depression on 12-31-24. 08/14/2018 11/21/2024 2024 PHQ-9 Score 9 13 12 SW spoke with Yusuf's family member Mercedes. She advised that Yusuf is in a care home facility. Mercedes advised that she completed the questionnaire without the patient. 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 At [...] this patient by: CAREGIVER José Miguel Swanson [facility] Problem List As Of Date 01/02/2025 Noted [...] Osteoarth NOS-p (more content not included)... Normal [facility] CONFIRM BLOOD TYPEon 025 ABO group Nom (Bld) O [facility] Rh Nom (Bld) Positive [facility] ABO O Normal [facility] Comment on above: Order Comment: Speci men Type: BLOOD SPECIMENOrdering Facility: [facility] Address: [address] [place] [address] Performed By: #### C ONABO ####CC MAIN BLOOD BANKCLIA [id number] [place] [address] [place] Rh Nom (Bld) Positive Normal [facility] Comment on above: Order Comment: Speci men Type: BLOOD SPECIMENOrdering Facility: [facility] Address: [address] [place] [address] Performed By: #### C ONABO ####[facility] BLOOD BANKCLIA [id number] [address] [place] COPPER BLOODon 01-02-2025 Copper [Mass/Vol] 128 ug/dL Normal 80-155 [facility] Comment on above: Order Comment: Speci men Type: BLOOD SPECIMENOrdering Facility: [facility] Address: [address] [place] [address] Result Comment: This test was developed, and its performance characteristics determined by the [facility] Department of Pathology and Laboratory Medicine. It has not been cleared or approved by the FDA. The [facility] Department of Pathology and Laboratory Medicine is regulated under CLIA as qualified to perform high-complexity testing. This test is used for clinical purposes. It should not be regarded as investigational or for research. Performed By: #### 5 763-8, COPPER ####[facility] LABCLIA [id number] [address] [place] Comprehensive metabolic 2000 panelOrdered By: Aminta Lim on 01-02-2025 Albumin [Mass/Vol] 3.5 g/dL Low 3.9 - 4.9 g/dL [facility] ALP [Catalytic activity/Vol] 128 U/L High 34 - 123 U/L [facility] ALT [Catalytic activity/Vol] U/L Low 7 - 38 U/L [facility] Anion gap [Moles/Vol] 13 mmol/L 8 - 15 mmol/L [facility] AST [Catalytic activity/Vol] 15 U/L 13 - 35 U/L [facility] Bilirubin [Mass/Vol] 0.2 mg/dL 0.2 - 1 .3 mg/dL [facility] Calcium [Mass/Vol] 9.1 mg/dL 8.5 - 10. 2 mg/dL [facility] Chloride [Moles/Vol] 98 mmol/L 98 - 10 7 mmol/L [facility] CO2 [Moles/Vol] 26 mmol/L 22 - 30 mmol/L [facility] Creatinine [Mass/Vol] 0.82 mg/dL 0.58 - 0.96 mg/dL [facility] GFR/1.73 sq M.predicted among non-blacks MDRD (S/P/Bld) [Vol rate/Area] 68 mL/min/{1.73_m2} - PINF [facility] Comment on above: Estimated Glomerular [...] 276 mg/dL High 74 - 99 mg/dL [facility] Comment on above: The [place] Diab[employer] Association (ADA) provides guidance for [...] Standards of Medical Care in Diabetes 2016, [place]. Diabetes Care. 2016.39(Suppl 1). Interpretation and review of laboratory results Abnormal [facility] Potassium [Moles/Vol] 5.1 mmol/L 3.7 - 5.1 mmol/L [facility] Protein [Mass/Vol] 5.9 g/dL Low 6.3 - 8.0 g/dL [facility] Sodium [Moles/Vol] 137 mmol/L 136 - 144 mmol/L [facility] Urea nitrogen [Mass/Vol] 29 mg/dL High 7 - 21 mg/dL [facility] Comprehensive metabolic 2000 panelon 01-02-2025 Albumin [Mass/Vol] 3.5 g/dL Low 3.9-4.9 [facility] Comment on above: Order Comment: Speci men Type: BLOOD SPECIMEN [facility] Address: [address] [place] [address] Performed By: #### 5 7021-8 #### [facility] CLIA [id number] [address] [place] [address] [place] ALP [Catalytic activity/Vol] 128 U/L High 34-123 [facility] Comment on above: Order Comment: Speci men Type: BLOOD SPECIMEN [facility] Address: [address] [place] [address] Performed By: #### 5 7021-8 #### [facility] CLIA [id number] [address] [place] [address] [place] ALT [Catalytic activity/Vol] U/L Low 7-38 [facility] Comment on above: Order Comment: Speci men Type: BLOOD SPECIMEN [facility] Address: [address] [place] [address] Performed By: #### 5 7021-8 #### [facility] CLIA [id number] [address] [place] [address] [place] Anion gap [Moles/Vol] 13 mmol/L Normal 8-15 [facility] Comment on above: Order Comment: Speci men Type: BLOOD SPECIMEN [facility] Address: [address] [place] [address] Performed By: #### 5 7021-8 #### [facility] CLIA [id number] [address] [place] [address] [place] AST [Catalytic activity/Vol] 15 U/L Normal 13-35 [facility] Comment on above: Order Comment: Speci men Type: BLOOD SPECIMEN [facility] Address: [address] [place] [address] Performed By: #### 5 7021-8 #### [facility] CLIA [id number] [address] [place] [address] [place] Bilirubin [Mass/Vol] 0.2 mg/dL Normal 0.2-1.3 [facility] Comment on above: Order Comment: Speci men Type: BLOOD SPECIMEN [facility] Address: [address] [place] [address] Performed By: #### 5 7021-8 #### [facility] CLIA [id number] [address] [place] [address] [place] Calcium [Mass/Vol] 9.1 mg/dL Normal 8.5-10.2 [facility] Comment on above: Order Comment: Speci men Type: BLOOD SPECIMEN [facility] Address: [address] [place] [address] Performed By: #### 5 7021-8 #### [facility] CLIA [id number] [address] [place] [address] [place] Chloride [Moles/Vol] 98 mmol/L Normal 98-107 [facility] Comment on above: Order Comment: Speci men Type: BLOOD SPECIMEN [facility] Address: [address] [place] [address] Performed By: #### 5 7021-8 #### [facility] CLIA [id number] [address] [place] [address] [place] CO2 [Moles/Vol] 26 mmol/L Normal 22-30 [facility] Comment on above: Order Comment: Speci men Type: BLOOD SPECIMEN [facility] Address: [address] [place] [address] Performed By: #### 5 7021-8 #### [facility] CLIA [id number] [address] [place] [address] [place] Creatinine [Mass/Vol] 0.82 mg/dL Normal 0.58-0.96 [facility] Comment on above: Order Comment: Speci men Type: BLOOD SPECIMEN [facility] Address: [address] [place] [address] Performed By: #### 5 7021-8 #### [facility] CLIA [id number] [address] [place] [address] [place] Creatinine and Glomerular filtration rate.predicted panel (S/P/Bld) 68 mL/min/1.73m??? Normal >=60 [facility] Comment on above: Order Comment: Fan meade Type: BLOOD SPECIMEN [facility] Address: [address] [place] [address] Result Comment: Hilda mated Glomerular Filtration Rate [...] GFR. Performed By: #### 5 7021-8 #### [facility] CLIA [id number] [address] [place] [address] [place] Glucose [Mass/Vol] 276 mg/dL High 74-99 [facility] Comment on above: Order Comment: Fan meade Type: BLOOD SPECIMEN Ordering Facility: [facility] Address: [address] [place] [address] Result Comment: The [place] [employer] (ADA) provides guidance for cutoff [...] Standards of Medical Care in Diabetes 2016, [place] [employer]. Diabetes Care. 2016.39(Suppl 1). Performed By: #### 5 7021-8 #### [facility] CLIA [id number] [address] [id number] [place] Potassium [Moles/Vol] 5.1 mmol/L Normal 3.7-5.1 [facility] Comment on above: Order Comment: Speci men Type: BLOOD SPECIMEN Ordering Facility: [facility] Address: [address] [place] [address] Performed By: #### 5 7021-8 #### [facility] CLIA [id number] [address] [place] [address] [place] Protein [Mass/Vol] 5.9 g/dL Low 6.3-8.0 [facility] Comment on above: Order Comment: Speci men Type: BLOOD SPECIMEN Ordering Facility: [facility] Address: [address] [place] [address] Performed By: #### 5 7021-8 #### [facility] CLIA [id number] [address] [place] [address] [place] Sodium [Moles/Vol] 137 mmol/L Normal 136-144 [facility] Comment on above: Order Comment: Speci men Type: BLOOD SPECIMEN Ordering Facility: [facility] Address: [address] [place] [address] Performed By: #### 5 7021-8 #### [facility] CLIA [id number] [address] [place] [address] [place] Urea nitrogen [Mass/Vol] 29 mg/dL High 7-21 [facility] Comment on above: Order Comment: Speci men Type: BLOOD SPECIMEN Ordering Facility: [facility] Address: [address] [place] [address] Performed By: #### 5 7021-8 #### [facility] CLIA [id number] [address] [place] [address] [place] ESR Westergren method (Bld) [Velocity]on 01-02-2025 ESR (Bld) [Velocity] 47 mm/h High [facility] Interpretation and review of laboratory results Abnormal [facility] ESR (Bld) [Velocity] 47 mm/h High 0-20 [facility] Comment on above: Order Comment: Speci men Type: BLOOD SPECIMEN Ordering Facility: [facility] Address: [address] [place] [address] Performed By: #### 2 132-9, 2276-4, 69623-2, 228-8 #### [facility] CLIA [id number] [address] [place] [address] [place] Fer[facility] Ferritin [Mass/Vol] 865.0 ng/mL High 14.7-205.1 [facility] Comment on above: Order Comment: Speci men Type: BLOOD SPECIMEN Ordering Facility: [facility] Address: [address] [place] [address] Performed By: #### 2 132-9, 6-4, 92642-2, 2283-8 #### [facility] CLIA [id number] [address] [place] [address] [place] Folate [facility] 01[facility]20 25 Folate [Mass/Vol] 14.8 ng/mL Normal >4.7 [facility] Comment on above: Order Comment: Speci men Type: BLOOD SPECIMEN Ordering Facility: [facility] Address: [address] [place] [address] Performed By: #### 2 132-9, 6-4, 35346-9, 2283-8 #### [facility] CLIA [id number] [address] [place] [address] [place] Iron and Iron binding capaci ty panelon 01-02-2025 Iron [Mass/Vol] 46 ug/dL Normal 41-186 [facility] Comment on above: Order Comment: Speci men Type: BLOOD SPECIMEN Ordering Facility: [facility] Address: [address] [place] [address] Performed By: #### 2 132-9, 6-4, 04104-3, 2283-8 #### [facility] CLIA [id number] [address] [place] [address] [place] Iron binding capacity [Mass/Vol] 245 ug/dL Normal 232-386 [facility] Comment on above: Order Comment: Speci men Type: BLOOD SPECIMEN Ordering Facility: [facility] Address: [address] [place] [address] Performed By: #### 2 132-9, 2276-4, 14393-9, 2284-8 #### [facility] CLIA [id number] [address] [place] [address] [place] Iron/TIBC [Molar ratio] 18.8 % Normal 15.0-57.0 [facility] Comment on above: Order Comment: Speci men Type: BLOOD SPECIMEN Ordering Facility: [facility] Address: [address] [place] [address] Performed By: #### 2 132-9, 2276-4, 36101-5, 2284-8 #### [facility] CLIA [id number] [address] [place] [address] [place] TYPE + SCREENon 01-02-2025 ABO group Nom (Bld) O [facility] Blood group antibody screen Ql Negative [facility] Rh Nom (Bld) Positive [facility] Type and Screen Expiration 01/05/2025 23:59 [facility] ABO O Normal [facility] Comment on above: Order Comment: Speci men Type: BLOOD SPECIMEN Ordering Facility: [facility] Address: [address] [place] [address] Performed By: #### B CRPB1 #### [facility] CLIA [id number] [address] [place] [address] [place] #### ISMRNCNPB #### [facility] CLIA [id number] [address] [place] [address] [place] Rh Nom (Bld) Positive Normal [facility] Comment on above: Order Comment: Speci men Type: BLOOD SPECIMEN Ordering Facility: [facility] Address: [address] [place] [address] Performed By: #### B CRPB1 #### [facility] CLIA [id number] [address] [place] [address] [place] #### ISMRNCNPB #### [facility] CLIA [id number] [address] [place] [address] [place] TYPE AND SCREEN EXPIRATION 01/05/2025 23:59 Normal [facility] Comment on above: Order Comment: Speci men Type: BLOOD SPECIMEN Ordering Facility: [facility] Address: [address] [place] [address] Performed By: #### B CRPB1 #### [facility] CLIA [id number] [address] [place] [address] [place] #### ISMRNCNPB #### [facility] CLIA [id number] [address] [place] [address] [place] VITAMIN B6/PYRIDOXINon 01-02 VITAMIN B6 13.8 nmol/L Low 20.0-125.0 [facility] Comment on above: Order Comment: Speci men Type: BLOOD SPECIMEN Ordering Facility: [facility] Address: [address] [place] [address] Result Comment: INTE RPRETIVE INFORMATION: Vitamin B6 (Pyridoxal 5-Phosphate) Pyridoxal 5'-phosphate measured in a specimen collected following an 8-hour or overnight fast accurately indicates vitamin B6 nutritional status. Non-fasting specimen concentration reflects recent vitamin intake. This test was developed and its performance characteristics determined by [facility]. It has not been cleared or approved by the [place] Food and Drug Administration. This test was performed in a CLIA certified laboratory and is intended for clinical purposes. Performed By: [facility] [address] [place] [address] Steward/Stewardess: Marcellus Raza MD, PhD CLIA Number: [id number] Performed By: #### 5 7021-8 #### [facility] CLIA [id number] [address] [place] [address] [place] Vit B12 SerPl-mCncon 025 Cobalamin (Vitamin B12) [Mass/Vol] 582 pg/mL Normal 232-1245 [facility] Comment on above: Order Comment: Speci men Type: BLOOD SPECIMEN Ordering Facility: [facility] Address: [address] [place] [address] Performed By: #### 2 132-9, 2276-4, 32536-2, 2284-8 #### [facility] CLIA [id number] [address] [place] [address] [place] Zinc SerPl-mCncon 01-02-2025 Zinc [Mass/Vol] 56 ug/dL Low 60-120 [facility] Comment on above: Order Comment: Fan meade Type: BLOOD SPECIMENOrdering Facility: [facility] Address: [address] [place] [address] Result Comment: This test was developed, and its performance characteristics determined by the [facility] Department of Pathology and Laboratory Medicine. It has not been cleared or approved by the FDA. The [facility] Department of Pathology and Laboratory Medicine is regulated under CLIA as qualified to perform high-complexity testing. This test is used for clinical purposes. It should not be regarded as investigational or for research. Performed By: #### 5 763-8, COPPER ####[facility] [id number] [place] [address] [place] Absolute lymphocyte countOrd ered By: Mario Mak on 2024 Lymphocytes Auto (Unsp spec) [#/Vol] 0.88 10*3/uL 0.83-4.51 [facility] Absolute neutrophil countOrd ered By: Mario Mak on 2024 Neutrophils (Bld) [#/Vol] 5.4 10*3/uL 2.0-7.7 [facility] Albumin to globulin ratioOrd ered By: Mario Mak on 2024 Albumin/Globulin [Mass ratio] 0.7 {ratio} Low 0.9-2.4 [facility] Automated lymphocyte count a s percentage of total leukocytesOrdered By: Mario Mak on 2024 Lymphocytes/100 WBC Auto (Unsp spec) 11.9 % Low 19-41 [facility] Basophil percentageOrdered B y: Mario Mka on 2024 Basophils/100 WBC (Bld) 0.3 % 0-1 [facility] Bilirubin, totalOrdered By: Mario Mak on 2024 Bilirubin [Mass/Vol] 0.30 mg/dL 0.20-1.00 [facility] Comment on above: For patients on eltr ombopag therapy, use of Dimension Regan TBIL is not recommended. Blood urea nitrogen (BUN)/cr eatinine ratioOrdered By: Mario Mak on 2024 Urea nitrogen/Creatinine [Mass ratio] 30.9 mg/mg High 10-20 [facility] CBC W/Diff, Automatedon 12-15 Absolute Lymph 0.88 X10 3/uL Normal 0.83-4.51 [facility] Comment on above: Order Comment: 107.1 Performed By: #### L 101.9900, L501.6710 #### [facility] [address] [place], [address] Absolute Neut 5.4 X10 3/uL Normal 2.0-7.7 [facility] Comment on above: Order Comment: 107.1 Performed By: #### L 101.9900, L501.6710 #### [facility] [address] [place], [address] Basophils/100 WBC (Bld) 0.3 % Normal 0-1 [facility] Comment on above: Order Comment: 107.1 Performed By: #### L 101.9900, L501.6710 #### [facility] [address] [place], [address] Eosinophils/100 WBC (Bld) 6.3 % High 0-5 [facility] Comment on above: Order Comment: 107.1 Performed By: #### L 101.9900, L501.6710 #### [facility] [address] [place], [address] Erythrocyte distribution width (RBC) [Ratio] 17.1 % High 11.6-14.6 [facility] Comment on above: Order Comment: 107.1 Performed By: #### L 101.9900, L501.6710 #### [facility] [address] [place], [address] Hematocrit (Bld) [Volume fraction] 29.8 % Low 37-47 [facility] Comment on above: Order Comment: 107.1 Performed By: #### L 101.9900, L5.6710 #### [facility] [address] [place], [address] Hemoglobin (Bld) [Mass/Vol] 9.4 g/dL Low 12.0-15.0 [facility] Comment on above: Order Comment: 107.1 Performed By: #### L 101.9900, L5.10 #### [facility] [address] [place], [address] IG% 1.100 High 0.0-0.9 [facility] Comment on above: Order Comment: 107.1 Result Comment: IG% - Immature Granulocytes (promyelocytes, myelocytes and metamyelocytes) > 1% indicates that a LEFT SHIFT is Present. Performed By: #### L 101.9900, L5.6710 #### [facility] [address] [place], [address] Lymphocytes/100 WBC (Bld) 11.9 % Low 19-41 [facility] Comment on above: Order Comment: 107.1 Performed By: #### L 101.9900, L501.6710 #### [facility] [address] [place], [address] MCH (RBC) [Entitic mass] 28.4 pg Normal 27.0-32.0 [facility] Comment on above: Order Comment: 107.1 Performed By: #### L 101.9900, L5.6710 #### [facility] [address] [place], [address] MCHC (RBC) [Mass/Vol] 31.5 g/dL Low 32-[address] [facility] Comment on above: Order Comment: 107.1 Performed By: #### L 101.9900, L501.6710 #### [facility] [address] [place], [address] MCV (RBC) [Entitic vol] 90.0 fL Normal 81-99 [facility] Comment on above: Order Comment: 107.1 Performed By: #### L 101.9900, L501.10 #### [facility] [address] [place], [address] Monocytes/100 WBC (Bld) 7.5 % Normal 0-10 [facility] Comment on above: Order Comment: 107.1 Performed By: #### L 101.9900, L5.10 #### [facility] [address] [place], [address] Neutrophils/100 WBC (Bld) 72.9 % High 47-70 [facility] Comment on above: Order Comment: 107.1 Performed By: #### L 101.9900, L501.10 #### [facility] [address] [place], [address] Nucleated RBC (Bld) [#/Vol] 0 10*3/uL Normal 0-5 [facility] Comment on above: Order Comment: 107.1 Performed By: #### L 101.9900, L501.6710 #### [facility] [address] [place], [address] Platelet mean volume (Bld) [Entitic vol] 9.2 fL Normal 6.2-12.0 [facility] Comment on above: Order Comment: 107.1 Performed By: #### L 101.9900, L501.6710 #### [facility] [address] [place], [address] Platelets (Bld) [#/Vol] 361 10*3/uL Normal 150-450 [facility] Comment on above: Order Comment: 107.1 Performed By: #### L 101.9900, L501.6710 #### [facility] [address] [place], [address] RBC (Bld) [#/Vol] 3.31 10*6/uL Low 4.2-5.4 [facility] Comment on above: Order Comment: 107.1 Performed By: #### L 101.9900, L501.6710 #### [facility] [address] [place], [address] RDW SD 56.3 fl High 35.1-43.9 [facility] Comment on above: Order Comment: 107.1 Performed By: #### L 101.9900, L501.6710 #### [facility] [address] [place], [address] WBC (Bld) [#/Vol] 7.4 10*3/uL Normal 4.4-11.0 [facility] Comment on above: Order Comment: 107.1 Performed By: #### L 101.9900, L501.6710 #### [facility] [address] [place], [address] Carbon dioxide measurementOr dered By: Mario Mak on 2024 CO2 [Moles/Vol] 28.0 mmol/L 21.0-32.0 [facility] Chloride measurementOrdered By: Mario Mak on 2024 Chloride [Moles/Vol] 102 mmol/L 98-107 [facility] Comprehensive Metabolic Prof ilon 2024 Albumin [Mass/Vol] 2.1 g/dL Low 3.2-5.0 [facility] Comment on above: Order Comment: 107.1 Performed By: #### L 101.9900, L501.6710 #### [facility] [address] [place], [address] Albumin/Globulin [Mass ratio] 0.7 {ratio} Low 0.9-2.4 [facility] Comment on above: Order Comment: 107.1 Performed By: #### L 101.9900, L501.6710 #### [facility] [address] [place], [address] ALK P 102 U/L Normal 45-117 [facility] Comment on above: Order Comment: 107.1 Performed By: #### L 101.9900, L501.6710 #### [facility] [address] [place], [address] ALT [Catalytic activity/Vol] U/L Low 13-56 [facility] Comment on above: Order Comment: 107.1 Performed By: #### L 101.9900, L501.6710 #### [facility] [address] [place], [address] AST [Catalytic activity/Vol] 15 U/L Normal 15-37 [facility] Comment on above: Order Comment: 107.1 Performed By: #### L 101.9900, L501.6710 #### [facility] [address] [place], [address] Bilirubin [Mass/Vol] 0.30 mg/dL Normal 0.20-1.00 [facility] Comment on above: Order Comment: 107.1 Result Comment: For patients on eltrombopag therapy, use of Dimension Regan TBIL is not recommended. Performed By: #### L 101.9900, L501.6710 #### [facility] [address] [place], [address] BUN/CRE 30.9 RATIO High 10-20 [facility] Comment on above: Order Comment: 107.1 Performed By: #### L 101.9900, L501.6710 #### [facility] [address] [place], [address] CA,Total 8.7 mg/dL Normal 8.5-10.1 [facility] Comment on above: Order Comment: 107.1 Performed By: #### L 101.9900, L501.6710 #### [facility] [address] [place], [address] Chloride [Moles/Vol] 102 mmol/L Normal 98-107 [facility] Comment on above: Order Comment: 107.1 Performed By: #### L 101.9900, L501.6710 #### [facility] [address] [place], [address] CO2 [Moles/Vol] 28.0 mmol/L Normal 21.0-32.0 [facility] Comment on above: Order Comment: 107.1 Performed By: #### L 101.9900, L501.6710 #### [facility] [address] [place], [address] Creatinine [Mass/Vol] 0.87 mg/dL Normal 0.55-1.[address] [facility] Comment on above: Order Comment: 107.1 Result Comment: The validity of the calculated GFR GFRAA in patients over 70 years has not been determined. Clinical correlation is essential. Performed By: #### L 101.9900, L501.6710 #### [facility] [address] [place], [address] EST GFR - AA 79 mL/min Normal >60 [facility] Comment on above: Order Comment: 107.1 Result Comment: Afri can Cymraes GFR Calc Performed By: #### L 101.9900, L501.6710 #### [facility] [address] [place], [address] GAP 7 Normal 5-15 [facility] Comment on above: Order Comment: 107.1 Performed By: #### L 101.9900, L501.6710 #### [facility] [address] [place], [address] GFR/1.73 sq M.predicted among non-blacks MDRD (S/P/Bld) [Vol rate/Area] 65 mL/min/{1.73_m2} Normal >60 [facility] Comment on above: Order Comment: 107.1 Result Comment: Non- GFR Calc Performed By: #### L 101.9900, L5.6710 #### [facility] [address] [place], [address] Globulin (S) [Mass/Vol] 3.1 g/dL Normal 2.2-4.2 [facility] Comment on above: Order Comment: 107.1 Performed By: #### L 101.9900, L5.10 #### [facility] [address] [place], [address] Glucose [Mass/Vol] 192 mg/dL High 74-106 [facility] Comment on above: Order Comment: 107.1 Result Comment: Fast ing Glucose result greater than or equal to 126 mg/dL suggests DIABETES MELLITUS per A.D.A. criteria. Performed By: #### L 101.9900, L5.6710 #### [facility] [address] [place], [address] Potassium [Moles/Vol] 3.9 mmol/L Normal 3.5-5.[address] [facility] Comment on above: Order Comment: 107.1 Performed By: #### L 101.9900, L501.6710 #### [facility] [address] [place], [address] Sodium [Moles/Vol] 137 mmol/L Normal 136-145 [facility] Comment on above: Order Comment: 107.1 Performed By: #### L 101.9900, L501.6710 #### [facility] [address] [place], [place], [address] T PROT 5.2 g/dL Low 6.4-8.2 [facility] Comment on above: Order Comment: 107.1 Performed By: #### L 101.9900, L501.6710 #### [facility] [address] [place], [address] Urea nitrogen [Mass/Vol] 27 mg/dL High 7-18 [facility] Comment on above: Order Comment: 107.1 Performed By: #### L 101.9900, L501.6710 #### [facility] [address] [place], [place], [address] Eosinophil percentageOrdered By: Mario Mak on 2024 Eosinophils/100 WBC (Bld) 6.3 % High 0-5 [facility] Erythrocyte Sed Rateon 12-31 SED RATE 27 mm/hr Normal 0-30 [facility] Comment on above: Order Comment: 107-1 Performed By: #### L 400.0001, M100.2200 #### [facility] [address] [place], [place], [address] Erythrocyte distribution wid th (RBC) [Ratio]Ordered By: Mario Mak on 2024 Erythrocyte distribution width (RBC) [Entitic vol] 56.3 fL High 35.1-43.9 [facility] Erythrocyte distribution wid th ratioOrdered By: Maroi Mak on 2024 Erythrocyte distribution width (RBC) [Ratio] 17.1 % High 11.6-14.6 [facility] Erythrocyte distribution wid th standard deviationOrdered By: Mario Mak on 2024 Erythrocyte distribution width (RBC) [Ratio] 56.3 fl High 35.1-43.9 [facility] Erythrocyte sedimentation ra teOrdered By: Mario Mak on 2024 ESR (Bld) [Velocity] 27 mm/h 0-30 [facility] Estimated glomerular filtrat ion rate (GFR) AmericanOrdered By: Mario Mak on 2024 Estimated GFR (MDRD) Amer 79 mL/min >60 [facility] Comment on above: GFR Calc Glomerular filtration rate ( GFR) estimationOrdered By: Mario Mak on 2024 Estimated GFR (MDRD) Non-Af Amer 65 mL/min >60 [facility] Comment on above: Non- GFR Calc GFR/1.73 sq M.predicted among non-blacks MDRD (S/P/Bld) [Vol rate/Area] 65 mL/min/{1.73_m2} >60 [facility] Comment on above: Non- GFR Calc Glucose measurementOrdered B y: Mario Mak on 2024 Glucose [Mass/Vol] 192 mg/dL High 74-106 [facility] Comment on above: Fasting Glucose resu lt greater than or equal to 126 mg/dL suggests DIABETES MELLITUS per A.D.A. criteria. Hematocrit Auto (Bld) [Volum e fraction]Ordered By: Mario Mak on 2024 Hematocrit (Bld) [Volume fraction] 29.8 % Low 37-47 [facility] Hemoglobin measurementOrdere d By: Mario Mak on 2024 Hemoglobin (Bld) [Mass/Vol] 9.4 g/dL Low 12.0-15.0 [facility] Immature granulocytes/100 WB C Auto (Bld)Ordered By: Mario Mak on 2024 Immature granulocytes/100 WBC (Bld) 1.100 % High 0.0-0.9 [facility] Comment on above: IG% - Immature Granu locytes (promyelocytes, myelocytes and metamyelocytes) > 1% indicates that a LEFT SHIFT is Present. Laboratory - Chemistry and C hemistry - challengeOrdered By: Mario Mak on 2024 AST [Catalytic activity/Vol] 15 U/L 15-37 [facility] Lymphocytes Auto (Unsp spec) [#/Vol]Ordered By: Mario Mak on 2024 Lymphocytes (Bld) [#/Vol] 0.88 10*3/uL 0.83-4.51 [facility] Lymphocytes/100 WBC Auto (Un sp spec)Ordered By: Mario Mak on 2024 Lymphocytes/100 WBC (Bld) 11.9 % Low 19-41 [facility] MCV (mean corpuscular volume ) determinationOrdered By: Mario Mak on 2024 MCV (RBC) [Entitic vol] 90.0 fL 81-99 [facility] Mean corpuscular hemoglobin (MCH) determinationOrdered By: Mario Mak on 2024 MCH (RBC) [Entitic mass] 28.4 pg 27.0-32.0 [facility] Mean corpuscular hemoglobin concentration (MCHC) determinationOrdered By: Mario Mak on 2024 MCHC (RBC) [Mass/Vol] 31.5 g/dL Low 32-[address] [facility] Mean platelet volume determi nationOrdered By: Mario Mak on 2024 Platelet mean volume (Bld) [Entitic vol] 9.2 fL 6.2-12.0 [facility] Monocyte percentageOrdered B y: Mario Mak on 2024 Monocytes/100 WBC (Bld) 7.5 % 0-10 [facility] Neutrophil percentageOrdered By: Mario Mak on 2024 Neutrophils/100 WBC (Bld) 72.9 % High 47-70 [facility] Nucleated red blood cell per centageOrdered By: Mario Mak on 2024 Nucleated RBC/100 WBC (Bld) [Ratio] 0 % 0-5 [facility] Platelet countOrdered By: Moreno on 2024 Platelets (Bld) [#/Vol] 361 10*3/uL 150-450 [facility] Potassium measurementOrdered By: Mario Mak on 2024 Potassium [Moles/Vol] 3.9 mmol/L 3.5-5.[address] [facility] RBC Auto (Bld) [#/Vol]Ordere d By: Mario Mak on 2024 RBC (Bld) [#/Vol] 3.31 10*6/uL Low 4.2-5.4 [facility] Serum anion gap measurementO rdered By: Mario Mak on 2024 Anion gap [Moles/Vol] 7 mmol/L 5-[address] [facility] Serum globulin measurementOr dered By: Mario Mak on 2024 Globulin (S) [Mass/Vol] 3.1 g/dL 2.2-4.2 [facility] Serum or plasma alanine melara otransferase (ALT) measurementOrdered By: Mario Mak on 2024 ALT [Catalytic activity/Vol] U/L Low 13-56 [facility] Serum or plasma albumin roma urement (mass/volume)Ordered By: Mario Mak on 2024 Albumin [Mass/Vol] 2.1 g/dL Low 3.2-5.0 [facility] Serum or plasma alkaline krystal sphatase measurementOrdered By: Mario Mak on 2024 ALP [Catalytic activity/Vol] 102 U/L 45-117 [facility] Serum or plasma calcium roma urement (mass/volume)Ordered By: Mario Mak on 2024 Calcium [Mass/Vol] 8.7 mg/dL 8.5-10.1 [facility] Serum or plasma creatinine m easurement (mass/volume)Ordered By: Mario Mak on 2024 Creatinine [Mass/Vol] 0.87 mg/dL 0.55-1.[address] [facility] Comment on above: The validity of the calculated GFR & GFRAA in patients over 70 years has not been determined. Clinical correlation is essential. Serum or plasma urea nitroge n measurement (mass/volume)Ordered By: Mario Mak on 2024 Urea nitrogen [Mass/Vol] 27 mg/dL High 7-18 [facility] Sodium levelOrdered By: Mario Mak on 2024 Sodium [Moles/Vol] 137 mmol/L 136-145 [facility] Total proteinOrdered By: Shwetha Mak on 2024 Protein [Mass/Vol] 5.2 g/dL Low 6.4-8.2 [facility] White blood cell (WBC) count Ordered By: Mario Mak on 2024 WBC (Bld) [#/Vol] 7.4 10*3/uL 4.4-11.0 [facility] Tele[facility] (INTMIN) YUSUF MEDINA ([id number]) 1935 F [address] Date Time Provider Department 12/26/24 MIGDALIA CRAMER INTMIN During your visit today, we recorded the following information about you: Nikia Trinidad 12/26/2024 9:24 AM Signed Patients caregiver demetria tapia calling to have her [email or web address] message she sent below addressed. Yusuf Robles's sons and are in town to make an assessment whether she is able to go home from rehab. Can you talk with them to help with their decision? Please call Nathaniel Medina at [phone]. They are here till Tuesday 12 noon. [...] this patient by: CAREGIVER José Miguel Swanson [facility] Problem List As Of Date 12/26/2024 Noted [...] 02/19/2011 02/12/2014 (more content not included)... Normal [facility] Absolute lymphocyte countOrd ered By: Mario Mak on 12-24-2024 Lymphocytes Auto (Unsp spec) [#/Vol] 0.98 10*3/uL 0.83-4.51 [facility] Absolute neutrophil countOrd ered By: Mario Mak on 12-24-2024 Neutrophils (Bld) [#/Vol] 3.8 10*3/uL 2.0-7.7 [facility] Albumin to globulin ratioOrd ered By: Mario Mak on 12-24-2024 Albumin/Globulin [Mass ratio] 0.6 {ratio} Low 0.9-2.4 [facility] Automated lymphocyte count a s percentage of total leukocytesOrdered By: Mario Mak on 12-24-2024 Lymphocytes/100 WBC Auto (Unsp spec) 17.8 % Low 19-41 [facility] Basophil percentageOrdered B y: Mario Mak on 12-24-2024 Basophils/100 WBC (Bld) 0.5 % 0-1 [facility] Bilirubin, totalOrdered By: Mario Mak on 12-24-2024 Bilirubin [Mass/Vol] 0.30 mg/dL 0.20-1.00 [facility] Comment on above: For patients on eltr ombopag therapy, use of Dimension Regan TBIL is not recommended. Blood urea nitrogen (BUN)/cr eatinine ratioOrdered By: Mario Mak on 12-24-2024 Urea nitrogen/Creatinine [Mass ratio] 30.0 mg/mg High 10-20 [facility] CBC W/Diff, Automatedon 12-15 Absolute Lymph 0.98 X10 3/uL Normal 0.83-4.51 [facility] Comment on above: Order Comment: 107.1 Performed By: #### L [id number], L101.9900 #### [facility] [address] [place], [place], [id number] Absolute Neut 3.8 X10 3/uL Normal 2.0-7.7 [facility] Comment on above: Order Comment: 107.1 Performed By: #### L [id number], L101.9900 #### [facility] [address] [place], [address] Basophils/100 WBC (Bld) 0.5 % Normal 0-1 [facility] Comment on above: Order Comment: 107.1 Performed By: #### L [id number], L101.9900 #### [facility] [address] [place], [address] Eosinophils/100 WBC (Bld) 5.1 % High 0-5 [facility] Comment on above: Order Comment: 107.1 Performed By: #### L [id number], [id number] #### [facility] [address] [place], [address] Erythrocyte distribution width (RBC) [Ratio] 16.8 % High 11.6-14.6 [facility] Comment on above: Order Comment: 107.1 Performed By: #### L [id number], [id number] #### [facility] [address] [place], [address] Hematocrit (Bld) [Volume fraction] 27.5 % Low 37-47 [facility] Comment on above: Order Comment: 107.1 Performed By: #### L [id number], [id number] #### [facility] [address] [place], [address] Hemoglobin (Bld) [Mass/Vol] 8.9 g/dL Low 12.0-15.0 [facility] Comment on above: Order Comment: 107.1 Performed By: #### L [id number], [id number] #### [facility] [address] [place], [address] IG% 0.900 Normal 0.0-0.9 [facility] Comment on above: Order Comment: 107.1 Result Comment: IG% - Immature Granulocytes (promyelocytes, myelocytes and metamyelocytes) > 1% indicates that a LEFT SHIFT is Present. Performed By: #### L [id number], L101.9900 #### [facility] [address] [place], [address] Lymphocytes/100 WBC (Bld) 17.8 % Low 19-41 [facility] Comment on above: Order Comment: 107.1 Performed By: #### L [id number], [id number] #### [facility] [address] [place], [address] MCH (RBC) [Entitic mass] 29.0 pg Normal 27.0-32.0 [facility] Comment on above: Order Comment: 107.1 Performed By: #### L [id number], [id number] #### [facility] [address] [place], [address] MCHC (RBC) [Mass/Vol] 32.4 g/dL Normal 32-[address] [facility] Comment on above: Order Comment: 107.1 Performed By: #### L [id number], [id number] #### [facility] [address] [place], [address] MCV (RBC) [Entitic vol] 89.6 fL Normal 81-99 [facility] Comment on above: Order Comment: 107.1 Performed By: #### L 501.10, L101.9900 #### [facility] [address] [place], [address] Monocytes/100 WBC (Bld) 7.3 % Normal 0-10 [facility] Comment on above: Order Comment: 107.1 Performed By: #### L [id number], [id number] #### [facility] [address] [place], [address] Neutrophils/100 WBC (Bld) 68.4 % Normal 47-70 [facility] Comment on above: Order Comment: 107.1 Performed By: #### L [id number], [id number] #### [facility] [address] [place], [address] Nucleated RBC (Bld) [#/Vol] 0 10*3/uL Normal 0-5 [facility] Comment on above: Order Comment: 107.1 Performed By: #### L [id number], [id number] #### [facility] [address] [place], [address] Platelet mean volume (Bld) [Entitic vol] 9.3 fL Normal 6.2-12.0 [facility] Comment on above: Order Comment: 107.1 Performed By: #### L [id number], [id number] #### [facility] [address] [place], [address] Platelets (Bld) [#/Vol] 309 10*3/uL Normal 150-450 [facility] Comment on above: Order Comment: 107.1 Performed By: #### L [id number], [id number] #### [facility] [address] [place], [address] RBC (Bld) [#/Vol] 3.07 10*6/uL Low 4.2-5.4 [facility] Comment on above: Order Comment: 107.1 Performed By: #### L [id number], [id number] #### [facility] [address] [place], [address] RDW SD 55.5 fl High 35.1-43.9 [facility] Comment on above: Order Comment: 107.1 Performed By: #### L [id number], [id number] #### [facility] [address] [place], [address] WBC (Bld) [#/Vol] 5.5 10*3/uL Normal 4.4-11.0 [facility] Comment on above: Order Comment: 107.1 Performed By: #### L [id number], [id number] #### [facility] [address] [place], [address] Carbon dioxide measurementOr dered By: Mario Mak on 12-24-2024 CO2 [Moles/Vol] 29.0 mmol/L 21.0-32.0 [facility] Chloride measurementOrdered By: Mario Mak on 12-24-2024 Chloride [Moles/Vol] 106 mmol/L 98-107 [facility] Comprehensive Metabolic Prof ilon 12-24-2024 Albumin [Mass/Vol] 2.0 g/dL Low 3.2-5.0 [facility] Comment on above: Order Comment: 107.1 Performed By: #### L [id number], L101.9900 #### [facility] [address] [place], [address] Albumin/Globulin [Mass ratio] 0.6 {ratio} Low 0.9-2.4 [facility] Comment on above: Order Comment: 107.1 Performed By: #### L [id number], [id number] #### [facility] [address] [place], [address] ALK P 108 U/L Normal 45-117 [facility] Comment on above: Order Comment: 107.1 Performed By: #### L [id number], [id number] #### [facility] [address] [place], [address] ALT [Catalytic activity/Vol] U/L Low 13-56 [facility] Comment on above: Order Comment: 107.1 Performed By: #### L [id number], [id number] #### [facility] [address] [place], [address] AST [Catalytic activity/Vol] 17 U/L Normal 15-37 [facility] Comment on above: Order Comment: 107.1 Performed By: #### L [id number], [id number] #### [facility] [address] [place], [address] Bilirubin [Mass/Vol] 0.30 mg/dL Normal 0.20-1.00 [facility] Comment on above: Order Comment: 107.1 Result Comment: For patients on eltrombopag therapy, use of Dimension Regan TBIL is not recommended. Performed By: #### L [id number], [id number] #### [facility] [address] [place], [address] BUN/CRE 30.0 RATIO High 10-20 [facility] Comment on above: Order Comment: 107.1 Performed By: #### L [id number], [id number] #### [facility] [address] [place], [address] CA,Total 8.8 mg/dL Normal 8.5-10.1 [facility] Comment on above: Order Comment: 107.1 Performed By: #### L [id number], [id number] #### [facility] [address] [place], [address] Chloride [Moles/Vol] 106 mmol/L Normal 98-107 [facility] Comment on above: Order Comment: 107.1 Performed By: #### L [id number], [id number] #### [facility] [address] [place], [address] CO2 [Moles/Vol] 29.0 mmol/L Normal 21.0-32.0 [facility] Comment on above: Order Comment: 107.1 Performed By: #### L [id number], [id number] #### [facility] [address] [place], [address] Creatinine [Mass/Vol] 0.83 mg/dL Normal 0.55-1.[address] [facility] Comment on above: Order Comment: 107.1 Result Comment: The validity of the calculated GFR GFRAA in patients over 70 years has not been determined. Clinical correlation is essential. Performed By: #### L [id number], L101.9900 #### [facility] [address] [place], [address] EST GFR - AA 83 mL/min Normal >60 [facility] Comment on above: Order Comment: 107.1 Result Comment: Afri can Cymraes GFR Calc Performed By: #### L [id number], [id number] #### [facility] [address] [place], [address] GAP 7 Normal 5-15 [facility] Comment on above: Order Comment: 107.1 Performed By: #### L 501.10, [id number] #### [facility] [address] [place], [address] GFR/1.73 sq M.predicted among non-blacks MDRD (S/P/Bld) [Vol rate/Area] 68 mL/min/{1.73_m2} Normal >60 [facility] Comment on above: Order Comment: 107.1 Result Comment: Non- GFR Calc Performed By: #### L [id number], [id number] #### [facility] [address] [place], [address] Globulin (S) [Mass/Vol] 3.4 g/dL Normal 2.2-4.2 [facility] Comment on above: Order Comment: 107.1 Performed By: #### L [id number], [id number] #### [facility] [address] [place], [address] Glucose [Mass/Vol] 76 mg/dL Normal 74-106 [facility] Comment on above: Order Comment: 107.1 Performed By: #### L [id number], [id number] #### [facility] [address] [place], [address] Potassium [Moles/Vol] 4.0 mmol/L Normal 3.5-5.[address] [facility] Comment on above: Order Comment: 107.1 Performed By: #### L [id number], [id number] #### [facility] [address] [place], [address] Sodium [Moles/Vol] 141 mmol/L Normal 136-145 [facility] Comment on above: Order Comment: 107.1 Performed By: #### L [id number], [id number] #### [facility] [address] [place], [address] T PROT 5.4 g/dL Low 6.4-8.2 [facility] Comment on above: Order Comment: 107.1 Performed By: #### L [id number], [id number] #### [facility] [address] [place], [address] Urea nitrogen [Mass/Vol] 25 mg/dL High 7-18 [facility] Comment on above: Order Comment: 107.1 Performed By: #### L [id number], [id number] #### [facility] [address] [place], [address] Eosinophil percentageOrdered By: Mario Mak on 12-24-2024 Eosinophils/100 WBC (Bld) 5.1 % High 0-5 [facility] Erythrocyte Sed Rateon 12-24 SED RATE 38 mm/hr High 0-30 [facility] Comment on above: Order Comment: 107.1 Performed By: #### L [id number], [id number] #### [facility] [address] [place], [address] Erythrocyte distribution wid th (RBC) [Ratio]Ordered By: Mario Mak on 12-24-2024 Erythrocyte distribution width (RBC) [Entitic vol] 55.5 fL High 35.1-43.9 [facility] Erythrocyte distribution wid th ratioOrdered By: Mario Mak on 12-24-2024 Erythrocyte distribution width (RBC) [Ratio] 16.8 % High 11.6-14.6 [facility] Erythrocyte distribution wid th standard deviationOrdered By: Mario Mak on 12-24-2024 Erythrocyte distribution width (RBC) [Ratio] 55.5 fl High 35.1-43.9 [facility] Erythrocyte sedimentation ra teOrdered By: Mario Mak on 12-24-2024 ESR (Bld) [Velocity] 38 mm/h High 0-30 [facility] Estimated glomerular filtrat ion rate (GFR) AmericanOrdered By: Mario Mak on 12-24-2024 Estimated GFR (MDRD) Amer 83 mL/min >60 [facility] Comment on above: GFR Calc Folates, (Folic Acid)on 12-15 FOLATES 6.70 ng/mL Normal 3.1-55.4 [facility] Comment on above: Order Comment: 107.1 Performed By: #### L [id number], [id number] #### [facility] [address] [place] [address], [address] Folic acid measurementOrdere d By: Mario Mak on 12-24-2024 Folate 6.70 ng/mL 3.1-55.4 [facility] Glomerular filtration rate ( GFR) estimationOrdered By: Mario Mak on 12-24-2024 Estimated GFR (MDRD) Non-Af Amer 68 mL/min >60 [facility] Comment on above: Non- GFR Calc GFR/1.73 sq M.predicted among non-blacks MDRD (S/P/Bld) [Vol rate/Area] 68 mL/min/{1.73_m2} >60 [facility] Comment on above: Non- GFR Calc Glucose measurementOrdered B y: Mario Mak on 12-24-2024 Glucose [Mass/Vol] 76 mg/dL 74-106 [facility] Hematocrit Auto (Bld) [Volum e fraction]Ordered By: Mario Mak on 12-24-2024 Hematocrit (Bld) [Volume fraction] 27.5 % Low 37-47 [facility] Hemoglobin measurementOrdere d By: Mario Mak on 12-24-2024 Hemoglobin (Bld) [Mass/Vol] 8.9 g/dL Low 12.0-15.0 [facility] Immature granulocytes/100 WB C Auto (Bld)Ordered By: Mario Mak on 12-24-2024 Immature granulocytes/100 WBC (Bld) 0.900 % 0.0-0.9 [facility] Comment on above: IG% - Immature Granu locytes (promyelocytes, myelocytes and metamyelocytes) > 1% indicates that a LEFT SHIFT is Present. Iron (Unsp spec) [Mass/Mass] Ordered By: Mario Mak on 12-24-2024 Iron [Mass/Vol] 58 ug/dL 50-170 [facility] Iron measurement (mass/mass) Ordered By: Mario Mak on 12-24-2024 Iron (Unsp spec) [Mass/Mass] 58 ug/dL 50-170 [facility] Iron saturation [Mass fracti on]Ordered By: Mario Mak on 12-24-2024 Iron Saturation 35.4 % 15.0-55.0 [facility] Iron+Iron Binding Capacityon 12-24-2024 Iron [Mass/Vol] 58 ug/dL Normal 50-170 [facility] Comment on above: Order Comment: 107.1 Performed By: #### L [id number], [id number] #### [facility] [address] [place], [place], [address] IRON SATURATION 35.4 Normal 15.0-55.0 [facility] Comment on above: Order Comment: 107.1 Performed By: #### L [id number], [id number] #### [facility] [address] [place], [address] TIBC 164 ug/dL Low 250-450 [facility] Comment on above: Order Comment: 107.1 Performed By: #### L [id number], [id number] #### [facility] [address] [place], [address] Laboratory - Chemistry and C hemistry - challengeOrdered By: Mario Mak on 12-24-2024 AST [Catalytic activity/Vol] 17 U/L 15-37 [facility] Lymphocytes Auto (Unsp spec) [#/Vol]Ordered By: Mario Mak on 12-24-2024 Lymphocytes (Bld) [#/Vol] 0.98 10*3/uL 0.83-4.51 [facility] Lymphocytes/100 WBC Auto (Un sp spec)Ordered By: Mario Mak on 12-24-2024 Lymphocytes/100 WBC (Bld) 17.8 % Low 19-41 [facility] MCV (mean corpuscular volume ) determinationOrdered By: Mario Mak on 12-24-2024 MCV (RBC) [Entitic vol] 89.6 fL 81-99 [facility] Mean corpuscular hemoglobin (MCH) determinationOrdered By: Mario Mak on 12-24-2024 MCH (RBC) [Entitic mass] 29.0 pg 27.0-32.0 [facility] Mean corpuscular hemoglobin concentration (MCHC) determinationOrdered By: Mario Mak on 12-24-2024 MCHC (RBC) [Mass/Vol] 32.4 g/dL 32-[address] [facility] Mean platelet volume determi nationOrdered By: Mario Mak on 12-24-2024 Platelet mean volume (Bld) [Entitic vol] 9.3 fL 6.2-12.0 [facility] Monocyte percentageOrdered B y: Mario Mak on 12-24-2024 Monocytes/100 WBC (Bld) 7.3 % 0-10 [facility] Neutrophil percentageOrdered By: Mario Mak on 12-24-2024 Neutrophils/100 WBC (Bld) 68.4 % 47-70 [facility] Nucleated red blood cell per centageOrdered By: Mario Mak on 12-24-2024 Nucleated RBC/100 WBC (Bld) [Ratio] 0 % 0-5 [facility] Platelet countOrdered By: Moreno on 12-24-2024 Platelets (Bld) [#/Vol] 309 10*3/uL 150-450 [facility] Potassium measurementOrdered By: Mario Mak on 12-24-2024 Potassium [Moles/Vol] 4.0 mmol/L 3.5-5.[address] [facility] RBC Auto (Bld) [#/Vol]Ordere d By: Mario Mak on 12-24-2024 RBC (Bld) [#/Vol] 3.07 10*6/uL Low 4.2-5.4 [facility] Serum anion gap measurementO rdered By: Mairo Mak on 12-24-2024 Anion gap [Moles/Vol] 7 mmol/L 5-[address] [facility] Serum globulin measurementOr dered By: Mario Mak on 12-24-2024 Globulin (S) [Mass/Vol] 3.4 g/dL 2.2-4.2 [facility] Serum or plasma alanine melara otransferase (ALT) measurementOrdered By: Mario Mak on 12-24-2024 ALT [Catalytic activity/Vol] U/L Low 13-56 [facility] Serum or plasma albumin roma urement (mass/volume)Ordered By: Mario Mak on 12-24-2024 Albumin [Mass/Vol] 2.0 g/dL Low 3.2-5.0 [facility] Serum or plasma alkaline krystal sphatase measurementOrdered By: Mario Mak on 12-24-2024 ALP [Catalytic activity/Vol] 108 U/L 45-117 [facility] Serum or plasma calcium roma urement (mass/volume)Ordered By: Mario Mak on 12-24-2024 Calcium [Mass/Vol] 8.8 mg/dL 8.5-10.1 [facility] Serum or plasma creatinine m easurement (mass/volume)Ordered By: Mario Mak on 12-24-2024 Creatinine [Mass/Vol] 0.83 mg/dL 0.55-1.[address] [facility] Comment on above: The validity of the calculated GFR & GFRAA in patients over 70 years has not been determined. Clinical correlation is essential. Serum or plasma iron saturat ion measurement (mass fraction)Ordered By: Mario Mak on 12-24-2024 Iron saturation [Mass fraction] 35.4 % 15.0-55.0 [facility] Serum or plasma urea nitroge n measurement (mass/volume)Ordered By: Mario Mak on 12-24-2024 Urea nitrogen [Mass/Vol] 25 mg/dL High 7-18 [facility] Sodium levelOrdered By: Mario Mak on 12-24-2024 Sodium [Moles/Vol] 141 mmol/L 136-145 [facility] TIBCOrdered By: Mario Mak on 12-24-2024 Total Iron Binding Capacity 164 ug/dL Low 250-450 [facility] Total proteinOrdered By: Shwetha Mak on 12-24-2024 Protein [Mass/Vol] 5.4 g/dL Low 6.4-8.2 [facility] Vitamin B12on 12-24-2024 Cobalamin (Vitamin B12) [Mass/Vol] 407 pg/mL Normal 211-911 [facility] Comment on above: Order Comment: 107.1 Performed By: #### L [id number], [id number] #### [facility] [address] [place] [address], [address] Vitamin B12 measurementOrder ed By: Mario Mak on 12-24-2024 Cobalamin (Vitamin B12) [Mass/Vol] 407 pg/mL 211-911 [facility] White blood cell (WBC) count Ordered By: Mario Mak on 12-24-2024 WBC (Bld) [#/Vol] 5.5 10*3/uL 4.4-11.0 [facility] Albumin to globulin ratioOrd ered By: Mario Mak on 12-17-2024 Albumin/Globulin [Mass ratio] 0.6 {ratio} Low 0.9-2.4 [facility] Bilirubin, totalOrdered By: Mario Mak on 12-17-2024 Bilirubin [Mass/Vol] 0.30 mg/dL 0.20-1.00 [facility] Comment on above: For patients on eltr ombopag therapy, use of Dimension Regan TBIL is not recommended. Blood urea nitrogen (BUN)/cr eatinine ratioOrdered By: Mario Mak on 12-17-2024 Urea nitrogen/Creatinine [Mass ratio] 38.9 mg/mg High 10-20 [facility] CBC-Complete Blood Cnt No Di ffon 12-17-2024 Erythrocyte distribution width (RBC) [Ratio] 17.8 % High 11.6-14.6 [facility] Comment on above: Order Comment: 107-1 CLEAN CATCH Performed By: #### L 400.0001, M1.0 #### [facility] [address] [place], [address] Hematocrit (Bld) [Volume fraction] 24.9 % Low 37-47 [facility] Comment on above: Order Comment: 107-1 CLEAN CATCH Performed By: #### L 400.0001, .2199 #### [facility] [address] [place], [address] Hemoglobin (Bld) [Mass/Vol] 7.7 g/dL Low 12.0-15.0 [facility] Comment on above: Order Comment: 107-1 CLEAN CATCH Performed By: #### L 400.0001, .2199 #### [facility] [facility] [address] [place], [address] MCH (RBC) [Entitic mass] 28.3 pg Normal 27.0-32.0 [facility] Comment on above: Order Comment: 107-1 CLEAN CATCH Performed By: #### L 400.0001, .2199 #### [facility] [address] [place], [address] MCHC (RBC) [Mass/Vol] 30.9 g/dL Low 32-[address] [facility] Comment on above: Order Comment: 107-1 CLEAN CATCH Performed By: #### L 400.0001, M1.0 #### [facility] [address] [place], [address] MCV (RBC) [Entitic vol] 91.5 fL Normal 81-99 [facility] Comment on above: Order Comment: 107-1 CLEAN CATCH Performed By: #### L 400.0001, #### [facility] [address] [place], [address] Platelet mean volume (Bld) [Entitic vol] 8.7 fL Normal 6.2-12.0 [facility] Comment on above: Order Comment: 107-1 CLEAN CATCH Performed By: #### L 400.0001, .2199 #### [facility] [address] [place], [address] Platelets (Bld) [#/Vol] 391 10*3/uL Normal 150-450 [facility] Comment on above: Order Comment: 107-1 CLEAN CATCH Performed By: #### L 400.0001, #### [facility] [address] [place], [address] RBC (Bld) [#/Vol] 2.72 10*6/uL Low 4.2-5.4 [facility] Comment on above: Order Comment: 107-1 CLEAN CATCH Performed By: #### L 400.0001, #### [facility] [address] [place], [address] RDW SD 59.4 fl High 35.1-43.9 [facility] Comment on above: Order Comment: 107-1 CLEAN CATCH Performed By: #### L 400.0001, #### [facility] [address] [place], [address] WBC (Bld) [#/Vol] 7.6 10*3/uL Normal 4.4-11.0 [facility] Comment on above: Order Comment: 107-1 CLEAN CATCH Performed By: #### L 400.0001, .2199 #### [facility] [address] [place], [address] Carbon dioxide measurementOr dered By: Mario Mak on 12-17-2024 CO2 [Moles/Vol] 25.0 mmol/L 21.0-32.0 [facility] Chloride measurementOrdered By: Mario Mak on 12-17-2024 Chloride [Moles/Vol] 104 mmol/L 98-107 [facility] Comprehensive Metabolic Prof ilon 12-17-2024 Albumin [Mass/Vol] 1.9 g/dL Low 3.2-5.0 [facility] Comment on above: Order Comment: 107-1 CLEAN CATCH Performed By: #### L 400.0001, #### [facility] [address] [place], [address] Albumin/Globulin [Mass ratio] 0.6 {ratio} Low 0.9-2.4 [facility] Comment on above: Order Comment: 107-1 CLEAN CATCH Performed By: #### L 400.0001, #### [facility] [address] [place], [address] ALK P 96 U/L Normal 45-117 [facility] Comment on above: Order Comment: 107-1 CLEAN CATCH Performed By: #### L 400.0001, #### [facility] [address] [place], [address] ALT [Catalytic activity/Vol] 9 U/L Low 13-56 [facility] Comment on above: Order Comment: 107-1 CLEAN CATCH Performed By: #### L 400.0001, #### [facility] [address] [place], [address] AST [Catalytic activity/Vol] 26 U/L Normal 15-37 [facility] Comment on above: Order Comment: 107-1 CLEAN CATCH Performed By: #### L 400.0001, #### [facility] [address] [place], [address] Bilirubin [Mass/Vol] 0.30 mg/dL Normal 0.20-1.00 [facility] Comment on above: Order Comment: 107-1 CLEAN CATCH Result Comment: For patients on eltrombopag therapy, use of Dimension Regan TBIL is not recommended. Performed By: #### L 400.0001, #### [facility] [address] [place], [address] BUN/CRE 38.9 RATIO High 10-20 [facility] Comment on above: Order Comment: 107-1 CLEAN CATCH Performed By: #### L 400.0001, #### [facility] [address] [place], [address] CA,Total 8.4 mg/dL Low 8.5-10.1 [facility] Comment on above: Order Comment: 107-1 CLEAN CATCH Performed By: #### L 400.0001, #### [facility] [address] [place], [address] Chloride [Moles/Vol] 104 mmol/L Normal 98-107 [facility] Comment on above: Order Comment: 107-1 CLEAN CATCH Performed By: #### L 400.0001, #### [facility] [address] [place], [address] CO2 [Moles/Vol] 25.0 mmol/L Normal 21.0-32.0 [facility] Comment on above: Order Comment: 107-1 CLEAN CATCH Performed By: #### L 400.0001, #### [facility] [address] [place], [address] Creatinine [Mass/Vol] 0.77 mg/dL Normal 0.55-1.[address] [facility] Comment on above: Order Comment: 107-1 CLEAN CATCH Result Comment: The validity of the calculated GFR GFRAA in patients over 70 years has not been determined. Clinical correlation is essential. Performed By: #### L 400.0001, 0 #### [facility] [address] [place], [address] EST GFR - AA 91 mL/min Normal >60 [facility] Comment on above: Order Comment: - CLEAN CATCH Result Comment: Afri can Cymraes GFR Calc Performed By: #### L 400.0001, #### [facility] [address] [place], [address] GAP 8 Normal 5-15 [facility] Comment on above: Order Comment: - CLEAN CATCH Performed By: #### L 400.0001, #### [facility] [address] [place], [address] GFR/1.73 sq M.predicted among non-blacks MDRD (S/P/Bld) [Vol rate/Area] 75 mL/min/{1.73_m2} Normal >60 [facility] Comment on above: Order Comment: CLEAN CATCH Result Comment: Non- GFR Calc Performed By: #### L 400.0001, #### [facility] [address] [place], [address] Globulin (S) [Mass/Vol] 3.2 g/dL Normal 2.2-4.2 [facility] Comment on above: Order Comment: - CLEAN CATCH Performed By: #### L 400.0001, #### [facility] [address] [place], [address] Glucose [Mass/Vol] 203 mg/dL High 74-106 [facility] Comment on above: Order Comment: - CLEAN CATCH Result Comment: Gluc ose result greater than or equal to 200 mg/dL suggests DIABETES MELLITUS per A.D.A. criteria. Performed By: #### L 400.0001, #### [facility] [address] [place], [address] Potassium [Moles/Vol] 4.2 mmol/L Normal 3.5-5.[address] [facility] Comment on above: Order Comment: 107-1 CLEAN CATCH Performed By: #### L 400.0001, M100.2200 #### [facility] [address] [place], [address] Sodium [Moles/Vol] 137 mmol/L Normal 136-145 [facility] Comment on above: Order Comment: 107-1 CLEAN CATCH Performed By: #### L 400.0001, M100.2200 #### [facility] [address] [place], [address] T PROT 5.1 g/dL Low 6.4-8.2 [facility] Comment on above: Order Comment: 107-1 CLEAN CATCH Performed By: #### L 400.0001, M100.2200 #### [facility] [address] [place], [address] Urea nitrogen [Mass/Vol] 30 mg/dL High 7-18 [facility] Comment on above: Order Comment: 107-1 CLEAN CATCH Performed By: #### L 400.0001, M100.2200 #### [facility] [address] [place], [address] Erythrocyte Sed Rateon 12-17 SED RATE 24 mm/hr Normal 0-30 [facility] Comment on above: Order Comment: 107-1 CLEAN CATCH Performed By: #### L 400.0001, M100.2200 #### [facility] [address] [place], [address] Erythrocyte distribution wid th (RBC) [Ratio]Ordered By: Mario Mak on 12-17-2024 Erythrocyte distribution width (RBC) [Entitic vol] 59.4 fL High 35.1-43.9 [facility] Erythrocyte distribution wid th ratioOrdered By: Mario Mak on 12-17-2024 Erythrocyte distribution width (RBC) [Ratio] 17.8 % High 11.6-14.6 [facility] Erythrocyte distribution wid th standard deviationOrdered By: Mario Mak on 12-17-2024 Erythrocyte distribution width (RBC) [Ratio] 59.4 fl High 35.1-43.9 [facility] Erythrocyte sedimentation ra teOrdered By: Mario Mak on 12-17-2024 ESR (Bld) [Velocity] 24 mm/h 0-30 [facility] Estimated glomerular filtrat ion rate (GFR) AmericanOrdered By: Mario Mak on 12-17-2024 Estimated GFR (MDRD) Amer 91 mL/min >60 [facility] Comment on above: GFR Calc Glomerular filtration rate ( GFR) estimationOrdered By: Mario Mak on 12-17-2024 Estimated GFR (MDRD) Non-Af Amer 75 mL/min >60 [facility] Comment on above: Non- GFR Calc GFR/1.73 sq M.predicted among non-blacks MDRD (S/P/Bld) [Vol rate/Area] 75 mL/min/{1.73_m2} >60 [facility] Comment on above: Non- GFR Calc Glucose measurementOrdered B y: Mario Mak on 12-17-2024 Glucose [Mass/Vol] 203 mg/dL High 74-106 [facility] Comment on above: Glucose result great er than or equal to 200 mg/dLsuggests DIABETES MELLITUS per A.D.A. criteria. Hematocrit Auto (Bld) [Volum e fraction]Ordered By: Mario Mak on 12-17-2024 Hematocrit (Bld) [Volume fraction] 24.9 % Low 37-47 [facility] Hemoglobin measurementOrdere d By: Mario Mak on 12-17-2024 Hemoglobin (Bld) [Mass/Vol] 7.7 g/dL Low 12.0-15.0 [facility] - Chemistry and C hemistry - challengeOrdered By: Mario Mak on 12-17-2024 AST [Catalytic activity/Vol] 26 U/L 15-37 [facility] MCV (mean corpuscular volume ) determinationOrdered By: Mario Mak on 12-17-2024 MCV (RBC) [Entitic vol] 91.5 fL 81-99 [facility] Mean corpuscular hemoglobin (MCH) determinationOrdered By: Mario Mak on 12-17-2024 MCH (RBC) [Entitic mass] 28.3 pg 27.0-32.0 [facility] Mean corpuscular hemoglobin concentration (MCHC) determinationOrdered By: Mario Mak on 12-17-2024 MCHC (RBC) [Mass/Vol] 30.9 g/dL Low 32-[address] [facility] Mean platelet volume determi nationOrdered By: Mario Mak on 12-17-2024 Platelet mean volume (Bld) [Entitic vol] 8.7 fL 6.2-12.0 [facility] Platelet countOrdered By: Moreno on 12-17-2024 Platelets (Bld) [#/Vol] 391 10*3/uL 150-450 [facility] Potassium measurementOrdered By: Mario Mak on 12-17-2024 Potassium [Moles/Vol] 4.2 mmol/L 3.5-5.[address] [facility] RBC Auto (Bld) [#/Vol]Ordere d By: Mario Mak on 12-17-2024 RBC (Bld) [#/Vol] 2.72 10*6/uL Low 4.2-5.4 [facility] Serum anion gap measurementO rdered By: Mario Mak on 12-17-2024 Anion gap [Moles/Vol] 8 mmol/L 5-[address] [facility] Serum globulin measurementOr dered By: Mario Mak on 12-17-2024 Globulin (S) [Mass/Vol] 3.2 g/dL 2.2-4.2 [facility] Serum or plasma alanine melara otransferase (ALT) measurementOrdered By: Mario Mak on 12-17-2024 ALT [Catalytic activity/Vol] 9 U/L Low 13-56 [facility] Serum or plasma albumin roma urement (mass/volume)Ordered By: Mario Mak on 12-17-2024 Albumin [Mass/Vol] 1.9 g/dL Low 3.2-5.0 [facility] Serum or plasma alkaline krystal sphatase measurementOrdered By: Mario Mak on 12-17-2024 ALP [Catalytic activity/Vol] 96 U/L 45-117 [facility] Serum or plasma calcium roma urement (mass/volume)Ordered By: Mario Mak on 12-17-2024 Calcium [Mass/Vol] 8.4 mg/dL Low 8.5-10.1 [facility] Serum or plasma creatinine m easurement (mass/volume)Ordered By: Mario Mak on 12-17-2024 Creatinine [Mass/Vol] 0.77 mg/dL 0.55-1.[address] [facility] Comment on above: The validity of the calculated GFR & GFRAA in patients over 70 years has not been determined. Clinical correlation is essential. Serum or plasma urea nitroge n measurement (mass/volume)Ordered By: Mario Mak on 12-17-2024 Urea nitrogen [Mass/Vol] 30 mg/dL High 7-18 [facility] Sodium levelOrdered By: Mario Mak on 12-17-2024 Sodium [Moles/Vol] 137 mmol/L 136-145 [facility] Total proteinOrdered By: Shwetha Mak on 12-17-2024 Protein [Mass/Vol] 5.1 g/dL Low 6.4-8.2 [facility] White blood cell (WBC) count Ordered By: Mario Mak on 12-17-2024 WBC (Bld) [#/Vol] 7.6 10*3/uL 4.4-11.0 [facility] ANES POSTPROC EVALon 025 ANES POSTPROC EVAL Normal ANES PRE-OPon 12-12-2024 ANES PRE-OP Normal BRIEF OP NOTon 12-12-2024 BRIEF OP NOT Normal Basic metabolic 2000 panelon 12-12-2024 Anion gap [Moles/Vol] 9 mmol/L Normal 8-[address] [facility] Comment on above: Order Comment: Speci men Type: BLOOD SPECIMENOrdering Facility: [facility] Address: [address] [place] [address] Performed By: #### 2 4321-2 ####[facility] [id number] [place] [address] [place] Calcium [Mass/Vol] 8.9 mg/dL Normal 8.5-10.2 Comment on above: Order Comment: Speci men Type: BLOOD SPECIMENOrdering Facility: [facility] Address: [facility] [place] [address] Performed By: #### 2 4321-2 ####[facility]ORYCLIA [id number] [place] [address] [place] Chloride [Moles/Vol] 104 mmol/L Normal 98-107 [facility] Comment on above: Order Comment: Speci men Type: BLOOD SPECIMENOrdering Facility: [facility] Address: [address] [place] [address] Performed By: #### 2 4321-2 ####[facility]ORATORYCLIA [id number] [place] [address] [place] CO2 [Moles/Vol] 24 mmol/L Normal 22-30 Comment on above: Order Comment: Speci men Type: BLOOD SPECIMENOrdering Facility: [facility] Address: [address] [place] [address] Performed By: #### 2 4321-2 ####[facility]ORATORYCLIA [id number] [place] [address] [place] Creatinine [Mass/Vol] 0.74 mg/dL Normal 0.58-0.[address] [facility] Comment on above: Order Comment: Speci men Type: BLOOD SPECIMENOrdering Facility: [facility] Address: [address] [place] [address] Performed By: #### 2 4321-2 ####[facility]ORATORYCLIA [id number] [address] Creatinine and Glomerular filtration rate.predicted panel (S/P/Bld) 78 mL/min/1.73m??? Normal >=60 Comment on above: Order Comment: Speci men Type: BLOOD SPECIMENOrdering Facility: [facility] Address: [address] [place] [address] Result Comment: Hilda mated Glomerular Filtration Rate [...] Performed By: #### 2 4321-2 ####[facility]ORATORYCLIA [id number] [place] [address] [place] Glucose [Mass/Vol] 139 mg/dL High 74-99 Comment on above: Order Comment: Fan meade Type: BLOOD SPECIMENOrdering Facility: [facility] Address: [address] [place] [address] Result Comment: The [place] Diabetes [employer] (ADA) provides guidance for cutoff [...] Standards of Medical Care in Diabetes 2016, [place] [employer]. Diabetes Care. 2016.39(Suppl 1). Performed By: #### 2 4321-2 ####[facility]ORYCLIA [id number] [place] [address] [place] Potassium [Moles/Vol] 3.8 mmol/L Normal 3.7-5.[address] [facility] Comment on above: Order Comment: Fan meade Type: BLOOD SPECIMENOrdering Facility: [facility] Address: [address] [place] [address] Performed By: #### 2 4321-2 ####[facility]ATORYCLIA [id number] [place] [id number] [place] Sodium [Moles/Vol] 137 mmol/L Normal 136-144 Comment on above: Order Comment: Fan meade Type: BLOOD SPECIMENOrdering Facility: [facility] Address: [address] [place] [address] Performed By: #### 2 4321-2 ####[facility]ORATORYCLIA [id number] [place] [address] [place] Urea nitrogen [Mass/Vol] 24 mg/dL High 7- Comment on above: Order Comment: Speci men Type: BLOOD SPECIMENOrdering Facility: [facility] Address: [address] [place] [address] Performed By: #### 2 4321-2 ####[facility]ORATORYCLIA [id number] [place] [address] [place] CASE MANAGEMon 12-12-2024 CASE MANAGEM Normal CASE MANAGEM Normal CBC W Auto Differential pane l (Bld)on 12-12-2024 Basophils (Bld) [#/Vol] 0.03 10*3/uL Normal <0.11 Comment on above: Order Comment: Speci men Type: BLOOD SPECIMENOrdering Facility: [facility] Address: [address] [place] [address] Performed By: #### 5 7021-8 ####[facility]ORATORYCLIA [id number] [place] [address] [place] Basophils/100 WBC (Bld) 0.3 % Normal [facility] Comment on above: Order Comment: Speci men Type: BLOOD SPECIMENOrdering Facility: [facility] Address: [address] [place] [address] Performed By: #### 5 7021-8 ####[facility]ORATORYCLIA [id number] [place] [address] [place] Differential cell count method Nom (Bld) Auto Normal Comment on above: Order Comment: Speci men Type: BLOOD SPECIMENOrdering Facility: [facility] Address: [address] [place] [address] Performed By: #### 5 7021-8 ####[facility] LABORATORYCLIA [id number] [place] [address] [place] Eosinophils (Bld) [#/Vol] 0.15 10*3/uL Normal <0.46 Comment on above: Order Comment: Speci men Type: BLOOD SPECIMENOrdering Facility: [facility] Address: [address] [place] [address] Performed By: #### 5 7021-8 ####[facility]ORATORYCLIA [id number] [place] [address] [place] Eosinophils/100 WBC (Bld) 1.7 % Normal Comment on above: Order Comment: Speci men Type: BLOOD SPECIMENOrdering Facility: [facility] Address: [address] [place] [address] Performed By: #### 5 7021-8 ####[facility]ORATORYCLIA [id number] [place] [address] [place] Erythrocyte distribution width (RBC) [Ratio] 16.7 % High 11.5-15.0 Comment on above: Order Comment: Speci men Type: BLOOD SPECIMENOrdering Facility: [facility] Address: [address] [place] [address] Performed By: #### 5 7021-8 ####[facility]ORATORYCLIA [id number] [place] [address] [place] Hematocrit (Bld) [Volume fraction] 24.4 % Low 36.0-46.0 Comment on above: Order Comment: Speci men Type: BLOOD SPECIMENOrdering Facility: [facility] Address: [address] [place] [address] Performed By: #### 5 7021-8 ####[facility]ORATORYCLIA [id number] [place] [address] [place] Hemoglobin (Bld) [Mass/Vol] 7.8 g/dL Low 11.5-15.5 Comment on above: Order Comment: Speci men Type: BLOOD SPECIMENOrdering Facility: [facility] Address: [address] [place] [address] Performed By: #### 5 7021-8 ####[facility]ORATORYCLIA [id number] [place] [address] [place] Immature granulocytes (Bld) [#/Vol] 0.10 10*3/uL High <0.10 Comment on above: Order Comment: Speci men Type: BLOOD SPECIMENOrdering Facility: [facility] Address: [address] [place] [address] Performed By: #### 5 7021-8 ####[facility]ORATORYCLIA [id number] [address] Immature granulocytes/100 WBC (Bld) 1.2 % Normal Comment on above: Order Comment: Speci men Type: BLOOD SPECIMENOrdering Facility: [facility] Address: [address] [place] [address] Performed By: #### 5 7021-8 ####[facility]ORATORYCLIA [id number] [address] [place] Lymphocytes (Bld) [#/Vol] 1.19 10*3/uL Normal 1.00-4.00 Comment on above: Order Comment: Speci men Type: BLOOD SPECIMENOrdering Facility: [facility] Address: [address] [place] [address] Performed By: #### 5 7021-8 ####[facility]ORATORYCLIA [id number] [address] Lymphocytes/100 WBC (Bld) 13.7 % Normal Comment on above: Order Comment: Speci men Type: BLOOD SPECIMENOrdering Facility: [facility] Address: [address] [place] [address] Performed By: #### 5 7021-8 ####[facility] LABORATORYCLIA [id number] [address] STATES [facility] MCH (RBC) [Entitic mass] 28.1 pg Normal 26.0-34.0 Comment on above: Order Comment: Speci men Type: BLOOD SPECIMENOrdering Facility: [facility] Address: [address] [place] [address] Performed By: #### 5 7021-8 ####[facility]ORATORYCLIA [id number] [address] MCHC (RBC) [Mass/Vol] 32.0 g/dL Normal 30.5-36.[address] [facility] Comment on above: Order Comment: Speci men Type: BLOOD SPECIMENOrdering Facility: [facility] Address: [address] [place] [address] Performed By: #### 5 7021-8 ####[facility] LABORATORYCLIA [id number] [place] [address] [place] MCV (RBC) [Entitic vol] 87.8 fL Normal 80.0-100.0 [facility] Comment on above: Order Comment: Speci men Type: BLOOD SPECIMENOrdering Facility: [facility] Address: [address] [place] [address] Performed By: #### 5 7021-8 ####[facility] LABORATORYCLIA [id number] [place] [address] [place] Monocytes (Bld) [#/Vol] 0.66 10*3/uL Normal <0.87 Comment on above: Order Comment: Speci men Type: BLOOD SPECIMENOrdering Facility: [facility] Address: [address] [place] [address] Performed By: #### 5 7021-8 ####[facility] LABORATORYCLIA [id number] [place] [address] [place] Monocytes/100 WBC (Bld) 7.6 % Normal [facility] Comment on above: Order Comment: Speci men Type: BLOOD SPECIMENOrdering Facility: [facility] Address: [address] [place] [address] Performed By: #### 5 7021-8 ####[facility] LABORATORYCLIA [id number] [place] [address] [place] Neutrophils (Bld) [#/Vol] 6.54 10*3/uL Normal 1.45-7.50 Comment on above: Order Comment: Speci men Type: BLOOD SPECIMENOrdering Facility: [facility] Address: [address] [place] [address] Performed By: #### 5 7021-8 ####[facility] LABORATORYCLIA [id number] [place] [address] [place] Neutrophils/100 WBC (Bld) 75.5 % Normal Comment on above: Order Comment: Speci men Type: BLOOD SPECIMENOrdering Facility: [facility] Address: [address] [facility] [address] Performed By: #### 5 7021-8 ####[facility] LABORATORYCLIA [id number] [place] [address] [place] Nucleated RBC (Bld) [#/Vol] 10*3/uL Normal <0.01 Comment on above: Order Comment: Speci men Type: BLOOD SPECIMENOrdering Facility: [facility] Address: [address] [place], [place] [address] [address] Performed By: #### 5 7021-8 ####[facility] LABORATORYCLIA [id number] [place] [address] [place] Nucleated RBC/100 WBC (Bld) [Ratio] 0.0 /100 WBC Normal Comment on above: Order Comment: Speci men Type: BLOOD SPECIMENOrdering Facility: [facility] Address: [address] [place] [address] Performed By: #### 5 7021-8 ####[facility] LABORATORYCLIA [id number] [place] [address] [place] Platelet mean volume (Bld) [Entitic vol] 8.0 fL Low 9.0-12.7 Comment on above: Order Comment: Speci men Type: BLOOD SPECIMENOrdering Facility: [facility] Address: [address] [place] [address] Performed By: #### 5 7021-8 ####[facility] LABORATORYCLIA [id number] [place] [address] [place] Platelets (Bld) [#/Vol] 571 10*3/uL High 150-400 Comment on above: Order Comment: Speci men Type: BLOOD SPECIMENOrdering Facility: [facility] Address: [facility] [place] [address] Performed By: #### 5 7021-8 ####[facility] LABORATORYCLIA [id number] [place] [address] [place] RBC (Bld) [#/Vol] 2.78 10*6/uL Low 3.90-5.20 [facility] Comment on above: Order Comment: Speci men Type: BLOOD SPECIMENOrdering Facility: [facility] Address: [address] [place] [address] Performed By: #### 5 7021-8 ####VILLARREAL LABORATORYCLIA [id number] [place] [address] [place] WBC (Bld) [#/Vol] 8.67 10*3/uL Normal 3.70-11.00 [facility] Comment on above: Order Comment: Speci men Type: BLOOD SPECIMENOrdering Facility: [facility] Address: [address] [place] [address] Performed By: #### 5 7021-8 ####VILLARREAL LABORATORYCLIA [id number] [place] [address] [place] CNDSon 12-12-2024 CNDS Normal CONSULT PROGon 12-12-2024 CONSULT PRO Normal [facility] OPERATIVE NOon 12-12-2024 OPERATIVE NO [facility] Basic metabolic 2000 panelon 12-11-2024 Anion gap [Moles/Vol] 11 mmol/L Normal 8-[address] [facility] Comment on above: Order Comment: Speci men Type: BLOOD SPECIMENOrdering Facility: [facility] Address: [address] [place] [address] Performed By: #### 2 4321-2 ####VILLARREAL LABORATORYCLIA [id number] [place] [address] [place] Calcium [Mass/Vol] 9.1 mg/dL Normal 8.5-10.2 Comment on above: Order Comment: Speci men Type: BLOOD SPECIMENOrdering Facility: [facility] Address: [address] [place] [address] Performed By: #### 2 4321-2 ####VILLARREAL LABORATORYCLIA [id number] [place] [address] [place] Chloride [Moles/Vol] 102 mmol/L Normal 98-107 [facility] Comment on above: Order Comment: Speci men Type: BLOOD SPECIMENOrdering Facility: [facility] Address: [address] [place] [address] Performed By: #### 2 4321-2 ####VILLARREAL LABORATORYCLIA [id number] [place] [address] [place] CO2 [Moles/Vol] 25 mmol/L Normal 22-30 Comment on above: Order Comment: Katei men Type: BLOOD SPECIMENOrdering Facility: [facility] Address: [address] [place] [address] Performed By: #### 2 4321-2 ####VILLARREAL LABORATORYCLIA [id number] [address] [place] Creatinine [Mass/Vol] 0.80 mg/dL Normal 0.58-0.[address] [facility] Comment on above: Order Comment: Katei men Type: BLOOD SPECIMENOrdering Facility: [facility] Address: [address] [place] [address] Performed By: #### 2 4321-2 ####VILLARREAL LABORATORYCLIA [id number] [address] Creatinine and Glomerular filtration rate.predicted panel (S/P/Bld) 71 mL/min/1.73m??? Normal >=60 Comment on above: Order Comment: Fan halina Type: BLOOD SPECIMENOrdering Facility: [facility] Address: [address] [place] [address] Result Comment: Hilda mated Glomerular Filtration Rate [...] Performed By: #### 2 4321-2 ####VILLARREAL LABORATORYCLIA [id number] [address] [place] Glucose [Mass/Vol] 203 mg/dL High 74-99 Comment on above: Order Comment: Katei men Type: BLOOD SPECIMENOrdering Facility: [facility] Address: [address] [place] [address] Result Comment: The [place] Diabetes [employer] (ADA) provides guidance for cutoff [...] Standards of Medical Care in Diabetes 2016, [employer]. Diabetes Care. 2016.39(Suppl 1). Performed By: #### 2 4321-2 ####VILLARREAL LABORATORYCLIA [id number] [place] [address] [place] Potassium [Moles/Vol] 3.8 mmol/L Normal 3.7-5.[address] [facility] Comment on above: Order Comment: Speci men Type: BLOOD SPECIMENOrdering Facility: [facility] Address: [address] [place] [address] Performed By: #### 2 4321-2 ####VILLARREAL LABORATORYCLIA [id number] [address] [place] Sodium [Moles/Vol] 138 mmol/L Normal 136-144 Comment on above: Order Comment: Katei men Type: BLOOD SPECIMENOrdering Facility: [facility] Address: [address] [place] [address] Performed By: #### 2 4321-2 ####VILLARREAL LABORATORYCLIA [id number] [place] [address] [place] Urea nitrogen [Mass/Vol] 33 mg/dL High 7-21 Comment on above: Order Comment: Katei men Type: BLOOD SPECIMENOrdering Facility: [facility] Address: [address] [place] [address] Performed By: #### 2 4321-2 ####VILLARREAL LABORATORYCLIA [id number] [place] [address] [place] CASE MANAGEMon 12-11-2024 CASE MANAGEM Normal CBC W Auto Differential pane l (Bld)on 12-11-2024 Basophils (Bld) [#/Vol] 10*3/uL Normal <0.11 [facility] Comment on above: Order Comment: Speci men Type: BLOOD SPECIMENOrdering Facility: [facility] Address: [address] [place] [address] Performed By: #### 5 7021-8 ####VILLARREAL LABORATORYCLIA [id number] [place] [address] [place] Basophils/100 WBC (Bld) 0.2 % Normal [facility] Comment on above: Order Comment: Speci men Type: BLOOD SPECIMENOrdering Facility: [facility] Address: [address] [place] [address] Performed By: #### 5 7021-8 ####VILLARREAL LABORATORYCLIA [id number] [address] [place] Differential cell count method Nom (Bld) Auto Normal Comment on above: Order Comment: Speci men Type: BLOOD SPECIMENOrdering Facility: [facility] Address: [address] [place] [address] Performed By: #### 5 7021-8 ####VILLARREAL LABORATORYCLIA [id number] [place] [address] [place] Eosinophils (Bld) [#/Vol] 0.11 10*3/uL Normal <0.46 Comment on above: Order Comment: Speci men Type: BLOOD SPECIMENOrdering Facility: [facility] Address: [address] [place] [address] Performed By: #### 5 7021-8 ####VILLARREAL LABORATORYCLIA [id number] [address] [place] Eosinophils/100 WBC (Bld) 1.1 % Normal Comment on above: Order Comment: Speci men Type: BLOOD SPECIMENOrdering Facility: [facility] Address: [address] [place] [address] Performed By: #### 5 7021-8 ####VILLARREAL LABORATORYCLIA [id number] [place] [address] [place] Erythrocyte distribution width (RBC) [Ratio] 16.8 % High 11.5-15.0 Comment on above: Order Comment: Speci men Type: BLOOD SPECIMENOrdering Facility: [facility] Address: [address] [place] [address] Performed By: #### 5 7021-8 ####VILLARREAL LABORATORYCLIA [id number] [address] [place] Hematocrit (Bld) [Volume fraction] 25.2 % Low 36.0-46.0 Comment on above: Order Comment: Speci men Type: BLOOD SPECIMENOrdering Facility: [facility] Address: [address] [place] [address] Performed By: #### 5 7021-8 ####VILLARREAL LABORATORYCLIA [id number] [address] [place] Hemoglobin (Bld) [Mass/Vol] 8.4 g/dL Low 11.5-15.5 Comment on above: Order Comment: Speci men Type: BLOOD SPECIMENOrdering Facility: [facility] Address: [address] [place] [address] Performed By: #### 5 7021-8 ####VILLARREAL LABORATORYCLIA [id number] [address] [place] Immature granulocytes (Bld) [#/Vol] 0.16 10*3/uL High <0.10 Comment on above: Order Comment: Speci men Type: BLOOD SPECIMENOrdering Facility: [facility] Address: [address] [place] [address] Performed By: #### 5 7021-8 ####VILLARREAL LABORATORYCLIA [id number] [address] [place] Immature granulocytes/100 WBC (Bld) 1.5 % Normal Comment on above: Order Comment: Speci men Type: BLOOD SPECIMENOrdering Facility: [facility] Address: [address] [place] [address] Performed By: #### 5 7021-8 ####VILLARREAL LABORATORYCLIA [id number] [address] [place] Lymphocytes (Bld) [#/Vol] 1.13 10*3/uL Normal 1.00-4.00 Comment on above: Order Comment: Speci men Type: BLOOD SPECIMENOrdering Facility: [facility] Address: [address] [place] [address] Performed By: #### 5 7021-8 ####VILLARREAL LABORATORYCLIA [id number] [address] Lymphocytes/100 WBC (Bld) 10.9 % Normal Comment on above: Order Comment: Speci men Type: BLOOD SPECIMENOrdering Facility: [facility] Address: [address] [place] [address] Performed By: #### 5 7021-8 ####VILLARREAL LABORATORYCLIA [id number] [address] [place] MCH (RBC) [Entitic mass] 28.7 pg Normal 26.0-34.0 Comment on above: Order Comment: Speci men Type: BLOOD SPECIMENOrdering Facility: [facility] Address: [address] [place] [address] Performed By: #### 5 7021-8 ####VILLARREAL LABORATORYCLIA [id number] [address] MCHC (RBC) [Mass/Vol] 33.3 g/dL Normal 30.5-36.[address] [facility] Comment on above: Order Comment: Speci men Type: BLOOD SPECIMENOrdering Facility: [facility] Address: [address] [place] [address] Performed By: #### 5 7021-8 ####VILLARREAL LABORATORYCLIA [id number] [address] MCV (RBC) [Entitic vol] 86.0 fL Normal 80.0-100.0 [facility] Comment on above: Order Comment: Speci men Type: BLOOD SPECIMENOrdering Facility: [facility] Address: [address] [place], [place] [address] Performed By: #### 5 7021-8 ####VILLARREAL LABORATORYCLIA [id number] [place] [address] [place] Monocytes (Bld) [#/Vol] 0.64 10*3/uL Normal <0.87 Comment on above: Order Comment: Speci men Type: BLOOD SPECIMENOrdering Facility: [facility] Address: [address] [place] [address] Performed By: #### 5 7021-8 ####VILLARREAL LABORATORYCLIA [id number] [address] [place] Monocytes/100 WBC (Bld) 6.2 % Normal [facility] Comment on above: Order Comment: Speci men Type: BLOOD SPECIMENOrdering Facility: [facility] Address: [address] [place] [address] Performed By: #### 5 7021-8 ####VILLARREAL LABORATORYCLIA [id number] [address] [place] Neutrophils (Bld) [#/Vol] 8.31 10*3/uL High 1.45-7.50 Comment on above: Order Comment: Speci men Type: BLOOD SPECIMENOrdering Facility: [facility] Address: [address] [place] [address] Performed By: #### 5 7021-8 ####VILLARREAL LABORATORYCLIA [id number] [address] [place] Neutrophils/100 WBC (Bld) 80.1 % Normal Comment on above: Order Comment: Speci men Type: BLOOD SPECIMENOrdering Facility: [facility] Address: [address] [place] [address] Performed By: #### 5 7021-8 ####VILLARREAL LABORATORYCLIA [id number] [address] [place] Nucleated RBC (Bld) [#/Vol] 10*3/uL Normal <0.01 Comment on above: Order Comment: Speci men Type: BLOOD SPECIMENOrdering Facility: [facility] Address: [address] [place] [address] Performed By: #### 5 7021-8 ####VILLARREAL LABORATORYCLIA [id number] [address] [place] Nucleated RBC/100 WBC (Bld) [Ratio] 0.0 /100 WBC Normal Comment on above: Order Comment: Speci men Type: BLOOD SPECIMENOrdering Facility: [facility] Address: [address] [place] [address] Performed By: #### 5 7021-8 ####VILLARREAL LABORATORYCLIA [id number] [address] [place] Platelet mean volume (Bld) [Entitic vol] 7.9 fL Low 9.0-12.7 Comment on above: Order Comment: Speci men Type: BLOOD SPECIMENOrdering Facility: [facility] Address: [address] [place] [address] Performed By: #### 5 7021-8 ####VILLARREAL LABORATORYCLIA [id number] [address] [place] Platelets (Bld) [#/Vol] 600 10*3/uL High 150-400 Comment on above: Order Comment: Speci men Type: BLOOD SPECIMENOrdering Facility: [facility] Address: [address] [place] [address] Performed By: #### 5 7021-8 ####VILLARREAL LABORATORYCLIA [id number] [address] [place] RBC (Bld) [#/Vol] 2.93 10*6/uL Low 3.90-5.20 [facility] Comment on above: Order Comment: Speci men Type: BLOOD SPECIMENOrdering Facility: [facility] Address: [address] [place] [address] Performed By: #### 5 7021-8 ####VILLARREAL LABORATORYCLIA [id number] [address] [place] WBC (Bld) [#/Vol] 10.37 10*3/uL Normal 3.70-11.00 [facility] Comment on above: Order Comment: Speci men Type: BLOOD SPECIMENOrdering Facility: [facility] Address: [address] [place] [address] Performed By: #### 5 7021-8 ####VILLARREAL LABORATORYCLIA [id number] [place] [address] [place] CONSULT PROGon 12-11-2024 CONSULT PROG [facility] CONSULT PROG [facility] CONSULT PROG [facility] CONSULT PROG Normal CONSULT PROG Normal NUTRITIONon 12-11-2024 NUTRITION Normal ANES POSTPROC EVALon 025 ANES POSTPROC EVAL [facility] ANES PRE-OPon 12-10-2024 ANES PRE-OP [facility] BRIEF OP NOTon 12-10-2024 BRIEF OP NOT [facility] Basic metabolic 2000 panelon 12-10-2024 Anion gap [Moles/Vol] 10 mmol/L Normal 8-[address] [facility] Comment on above: Order Comment: Speci men Type: BLOOD SPECIMENOrdering Facility: [facility] Address: [address] [place] [address] Performed By: #### 2 4321-2 ####VILLARREAL LABORATORYCLIA [id number] [place] [address] [place] Calcium [Mass/Vol] 8.9 mg/dL Normal 8.5-10.2 Comment on above: Order Comment: Speci men Type: BLOOD SPECIMENOrdering Facility: [facility] Address: [address] [place] [address] Performed By: #### 2 4321-2 ####VILLARREAL LABORATORYCLIA [id number] [place] [address] [place] Chloride [Moles/Vol] 102 mmol/L Normal 98-107 [facility] Comment on above: Order Comment: Speci men Type: BLOOD SPECIMENOrdering Facility: [facility] Address: [address] [place] [address] Performed By: #### 2 4321-2 ####VILLARREAL LABORATORYCLIA [id number] [place] [address] [place] CO2 [Moles/Vol] 26 mmol/L Normal 22-30 Comment on above: Order Comment: Fan halina Type: BLOOD SPECIMENOrdering Facility: [facility] Address: [address] [place] [address] Performed By: #### 2 4321-2 ####VILLARREAL LABORATORYCLIA [id number] [address] [facility] Creatinine [Mass/Vol] 0.68 mg/dL Normal 0.58-0.[address] [facility] Comment on above: Order Comment: Fan halina Type: BLOOD SPECIMENOrdering Facility: [facility] Address: [address] [place] [address] Performed By: #### 2 4321-2 ####VILLARREAL LABORATORYCLIA [id number] [address] Creatinine and Glomerular filtration rate.predicted panel (S/P/Bld) 84 mL/min/1.73m??? Normal >=60 Comment on above: Order Comment: Fan halina Type: BLOOD SPECIMENOrdering Facility: [facility] Address: [address] [place] [address] Result Comment: Hilda mated Glomerular Filtration Rate [...] Performed By: #### 2 4321-2 ####VILLARREAL LABORATORYCLIA [id number] [address] Glucose [Mass/Vol] 79 mg/dL Normal 74-99 Comment on above: Order Comment: Fan meade Type: BLOOD SPECIMENOrdering Facility: [facility] Address: [address] [place] [address] Result Comment: The [place] Diabetes [employer] (ADA) provides guidance for cutoff [...] Standards of Medical Care in Diabetes 2016, [place]. Diabetes Care. 2016.39(Suppl 1). Performed By: #### 2 4321-2 ####L[facility]ERT[facility] LABORATORYCLIA [id number] [place] [address] [place] Potassium [Moles/Vol] 4.1 mmol/L Normal 3.7-5.[address] [facility] Comment on above: Order Comment: Fan meade Type: BLOOD SPECIMENOrdering Facility: [facility] Address: [address] [place] [address] Performed By: #### 2 4321-2 ####LUMBERT[facility] LABORATORYCLIA [id number] [address] [place] Sodium [Moles/Vol] 138 mmol/L Normal 136-144 Comment on above: Order Comment: Fan meade Type: BLOOD SPECIMENOrdering Facility: [facility] Address: [address] [place] [address] Performed By: #### 2 4321-2 ####VILLARREAL LABORATORYCLIA [id number] [address] [place] Urea nitrogen [Mass/Vol] 45 mg/dL High 7-21 Comment on above: Order Comment: Fan meade Type: BLOOD SPECIMENOrdering Facility: [facility] Address: [address] [place] [address] Performed By: #### 2 4321-2 ####LUM[facility]ERT[facility] LABORATORYCLIA [id number] [place] [id number] [place] CASE MANAGEMon 12-10-2024 CASE MANAGEM Normal CBC W Auto Differential pane l (Bld)on 12-10-2024 Basophils (Bld) [#/Vol] 10*3/uL Normal <0.11 [facility] Comment on above: Order Comment: Speci men Type: BLOOD SPECIMENOrdering Facility: [facility] Address: [address] [place] [address] Performed By: #### 5 7021-8 ####VILLARREAL LABORATORYCLIA [id number] [place] [address] [place] Basophils/100 WBC (Bld) 0.2 % Normal [facility] Comment on above: Order Comment: Speci men Type: BLOOD SPECIMENOrdering Facility: [facility] Address: [address] [place] [address] Performed By: #### 5 7021-8 ####VILLARREAL LABORATORYCLIA [id number] [place] [address] [place] Differential cell count method Nom (Bld) Auto Normal Comment on above: Order Comment: Speci men Type: BLOOD SPECIMENOrdering Facility: [facility] Address: [address] [place] [address] Performed By: #### 5 7021-8 ####VILLARREAL LABORATORYCLIA [id number] [place] [address] [place] Eosinophils (Bld) [#/Vol] 0.07 10*3/uL Normal <0.46 Comment on above: Order Comment: Speci men Type: BLOOD SPECIMENOrdering Facility: [facility] Address: [address] [place] [address] Performed By: #### 5 7021-8 ####VILLARREAL LABORATORYCLIA [id number] [address] [place] Eosinophils/100 WBC (Bld) 0.6 % Normal Comment on above: Order Comment: Speci men Type: BLOOD SPECIMENOrdering Facility: [facility] Address: [address] [place] [address] Performed By: #### 5 7021-8 ####VILLARREAL LABORATORYCLIA [id number] [place] [address] [place] Erythrocyte distribution width (RBC) [Ratio] 16.6 % High 11.5-15.0 Comment on above: Order Comment: Speci men Type: BLOOD SPECIMENOrdering Facility: [facility] Address: [address] [place] [address] Performed By: #### 5 7021-8 ####VILLARREAL LABORATORYCLIA [id number] [place] [address] [place] Hematocrit (Bld) [Volume fraction] 23.9 % Low 36.0-46.0 Comment on above: Order Comment: Speci men Type: BLOOD SPECIMENOrdering Facility: [facility] Address: [address] [place] [address] Performed By: #### 5 7021-8 ####VILLARREAL LABORATORYCLIA [id number] [place] [address] [place] Hemoglobin (Bld) [Mass/Vol] 7.8 g/dL Low 11.5-15.5 Comment on above: Order Comment: Speci men Type: BLOOD SPECIMENOrdering Facility: [facility] Address: [address] [place] [address] Performed By: #### 5 7021-8 ####VILLARREAL LABORATORYCLIA [id number] [place] [address] [place] Immature granulocytes (Bld) [#/Vol] 0.16 10*3/uL High <0.10 Comment on above: Order Comment: Speci men Type: BLOOD SPECIMENOrdering Facility: [facility] Address: [address] [place] [address] [place] [address] Performed By: #### 5 7021-8 ####VILLARREAL LABORATORYCLIA [id number] [place] [address] [place] Immature granulocytes/100 WBC (Bld) 1.4 % Normal Comment on above: Order Comment: Speci men Type: BLOOD SPECIMENOrdering Facility: [facility] Address: [address] [place] [address] [place] [address] Performed By: #### 5 7021-8 ####VILLARREAL LABORATORYCLIA [id number] [place] [address] [place] Lymphocytes (Bld) [#/Vol] 1.18 10*3/uL Normal 1.00-4.00 Comment on above: Order Comment: Speci men Type: BLOOD SPECIMENOrdering Facility: [facility] Address: [address] [place] [address] Performed By: #### 5 7021-8 ####VILLARREAL LABORATORYCLIA [id number] [address] Lymphocytes/100 WBC (Bld) 10.3 % Normal Comment on above: Order Comment: Speci men Type: BLOOD SPECIMENOrdering Facility: [facility] Address: [address] [place] [address] Performed By: #### 5 7021-8 ####VILLARREAL LABORATORYCLIA [id number] [address] MCH (RBC) [Entitic mass] 28.9 pg Normal 26.0-34.0 Comment on above: Order Comment: Speci men Type: BLOOD SPECIMENOrdering Facility: [facility] Address: [address] [place] [address] Performed By: #### 5 7021-8 ####VILLARREAL LABORATORYCLIA [id number] [address] [place] MCHC (RBC) [Mass/Vol] 32.6 g/dL Normal 30.5-36.[address] [facility] Comment on above: Order Comment: Speci men Type: BLOOD SPECIMENOrdering Facility: [facility] Address: [address] [place] [address] Performed By: #### 5 7021-8 ####VILLARREAL LABORATORYCLIA [id number] [address] MCV (RBC) [Entitic vol] 88.5 fL Normal 80.0-100.0 [facility] Comment on above: Order Comment: Speci men Type: BLOOD SPECIMENOrdering Facility: [facility] Address: [address] [place] [address] Performed By: #### 5 7021-8 ####VILLARREAL LABORATORYCLIA [id number] [address] Monocytes (Bld) [#/Vol] 0.70 10*3/uL Normal <0.87 Comment on above: Order Comment: Speci men Type: BLOOD SPECIMENOrdering Facility: [facility] Address: [address] [place] [address] Performed By: #### 5 7021-8 ####VILLARREAL LABORATORYCLIA [id number] [place] [address] [place] Monocytes/100 WBC (Bld) 6.1 % Normal [facility] Comment on above: Order Comment: Speci men Type: BLOOD SPECIMENOrdering Facility: [facility] Address: [address] [place] [address] Performed By: #### 5 7021-8 ####VILLARREAL LABORATORYCLIA [id number] [place] [address] [place] Neutrophils (Bld) [#/Vol] 9.32 10*3/uL High 1.45-7.50 Comment on above: Order Comment: Speci men Type: BLOOD SPECIMENOrdering Facility: [facility] Address: [address] [place] [address] Performed By: #### 5 7021-8 ####VILLARREAL LABORATORYCLIA [id number] [place] [address] [place] Neutrophils/100 WBC (Bld) 81.4 % Normal Comment on above: Order Comment: Speci men Type: BLOOD SPECIMENOrdering Facility: [facility] Address: [address] [place] [address] Performed By: #### 5 7021-8 ####VILLARREAL LABORATORYCLIA [id number] [place] [address] [place] Nucleated RBC (Bld) [#/Vol] 10*3/uL Normal <0.01 Comment on above: Order Comment: Speci men Type: BLOOD SPECIMENOrdering Facility: [facility] Address: [address] [place] [address] Performed By: #### 5 7021-8 ####VILLARRE[facility] LABORATORYCLIA [id number] [place] [address] [place] Nucleated RBC/100 WBC (Bld) [Ratio] 0.0 /100 WBC Normal Comment on above: Order Comment: Speci men Type: BLOOD SPECIMENOrdering Facility: [facility] Address: [address] [place] [address] Performed By: #### 5 7021-8 ####VILLARRE[facility] LABORATORYCLIA [id number] [place] [id number] [place] Platelet mean volume (Bld) [Entitic vol] 8.1 fL Low 9.0-12.7 Comment on above: Order Comment: Speci men Type: BLOOD SPECIMENOrdering Facility: [facility] Address: [address] [place] [place] [id number] Performed By: #### 5 7021-8 ####VILLARRE[facility] LABORATORYCLIA [id number] [place] [id number] [place] Platelets (Bld) [#/Vol] 579 10*3/uL High 150-400 Comment on above: Order Comment: Speci men Type: BLOOD SPECIMENOrdering Facility: [facility] Address: [facility] [facility] [place] [address] Performed By: #### 5 7021-8 ####[facility] LABORATORYCLIA [id number] [place] [address] [place] RBC (Bld) [#/Vol] 2.70 10*6/uL Low 3.90-5.20 [facility] Comment on above: Order Comment: Speci men Type: BLOOD SPECIMENOrdering Facility: [facility] Address: [address] [place] [address] Performed By: #### 5 7021-8 ####VILLAR[facility] LABORATORYCLIA [id number] [place] [id number] [place] WBC (Bld) [#/Vol] 11.45 10*3/uL High 3.70-11.00 [facility] Comment on above: Order Comment: Speci men Type: BLOOD SPECIMENOrdering Facility: [facility] Address: [facility] [place] [address] Performed By: #### 5 7021-8 ####VILLARREAL LABORATORYCLIA [id number] [place] [id number] [facility] [place] CONSULT PROGon 12-10-2024 CONSULT PROG Normal CONSULT PROG Normal CONSULT PROG Normal CONSULT PROG Normal OPERATIVE NOon 12-10-2024 OPERATIVE NO Normal SURGICAL PATHOLOGYon 025 CASE REPORT Normal Comment on above: Order Comment: Speci men Type: TISSUE SPECIMENOrdering Facility: [facility] Address: [address] [place] [address] Result Comment: Surg ical Pathology Report Case: [id number] Provider: José Miguel Morgan MD Collected: 12/10/2024 07:37 AMOrdering Location: Endoscopy Received: 12/10/2024 08:27 AMPathologist: Jesús Jeff MDSpecimens: A) - Small Bowel, Duodenum, Biopsy, sprue B) - Stomach, Biopsy, hp C) - Esophagus, Biopsy, at 30 cm r/o krystina Performed By: #### S ####[facility] LABCLIA [id number] [address] LABCLIA [id number] [address] STATES OF [facility] FINAL DIAGNOSIS [facility] Comment on above: Order Comment: Speci men Type: TISSUE SPECIMENOrdering Facility: [facility] Address: [address] [place] [address] Result Comment: A. D uodenum, biopsy:- Focal gastric surface metaplasia associated with mild regenerative epithelial changes.- No other significant pathologic alteration.B. Stomach, biopsy:- Reactive gastropathy.- No morphologic evidence of Helicobacter pylori.C. Esophagus at 30 cm, biopsy:- Fragments of of unremarkable squamous mucosa.- No evidence of Krystina.JRG/mm/12/11/2024 Performed By: #### S ####[facility] LABCLIA [id number] [address] LABCLIA [id number] FINAL PERFORMING LAB [facility] Comment on above: Order Comment: Speci men Type: TISSUE SPECIMENOrdering Facility: [facility] Address: [address] [place] [address] Result Comment: Diag nostic interpretation performed at: [facility], [address] [place] [address], [facility] [place] [address] CLIA# [id number] Director: Manfred Diallo MD Performed By: #### S ####[facility] LABCLIA [id number] [address] LABCLIA [id number] [address] [facility] GROSS DESCRIPTION [facility] Comment on above: Order Comment: Speci men Type: TISSUE SPECIMENOrdering Facility: [facility] Address: [address] [place] [address] Result Comment: A. S mall Bowel, Duodenum, [...] submitted in one cassette.Gross examination performed at [facility], [address] [place], [place] [address]AMS December 10, 2024 10:50 AM Performed By: #### S ####[facility] LABCLIA [id number] [address] LABCLIA [id number] [address] [place] THERAPY NTon 12-10-2024 THERAPY NT [facility] THERAPY [facility] Basic metabolic 2000 panelon 12-09-2024 Anion gap [Moles/Vol] 10 mmol/L Normal 8-[address] [facility] Comment on above: Order Comment: Speci men Type: BLOOD SPECIMENOrdering Facility: [facility] Address: [facility] [place] [address] Performed By: #### 2 4321-2, 55920-8, 2275-4 ####VILLARREAL LABORATORYCLIA [id number] [place] [address] [place] Calcium [Mass/Vol] 9.3 mg/dL Normal 8.5-10.2 Comment on above: Order Comment: Speci men Type: BLOOD SPECIMENOrdering Facility: [facility] Address: [facility] [address] Performed By: #### 2 4321-2, 70238-5, 2275- ####VILLARREAL LABORATORYCLIA [id number] [place] [address] [place] Chloride [Moles/Vol] 100 mmol/L Normal 98-107 [facility] Comment on above: Order Comment: Speci men Type: BLOOD SPECIMENOrdering Facility: [facility] Address: [facility] [place] [address] Performed By: #### 2 4321-2, 10058-1, 2276-02 ####VILLARREAL LABORATORYCLIA [id number] [place] [address] [place] CO2 [Moles/Vol] 26 mmol/L Normal 22-30 Comment on above: Order Comment: Speci men Type: BLOOD SPECIMENOrdering Facility: [facility] Address: [address] [place] [address] Performed By: #### 2 4321-2, 28933-6, 2275-4 ####VILLARREAL LABORATORYCLIA [id number] [place] [address] [place] Creatinine [Mass/Vol] 0.80 mg/dL Normal 0.58-0.[address] [facility] Comment on above: Order Comment: Speci men Type: BLOOD SPECIMENOrdering Facility: [facility] Address: [address] [place] [address] [place] [address] Performed By: #### 2 4321-2, 79889-9, 6- ####[facility] LABORATORYCLIA [id number] [address] Creatinine and Glomerular filtration rate.predicted panel (S/P/Bld) 71 mL/min/1.73m??? Normal >=60 Comment on above: Order Comment: Fan meade Type: BLOOD SPECIMENOrdering Facility: [facility] Address: [address] [place] [address] Result Comment: Hilda mated Glomerular Filtration Rate [...] actual GFR. Performed By: #### 2 4321-2, 32441-6, 4 ####[facility] LABORATORYCLIA [id number] [place] [address] [place] Glucose [Mass/Vol] 151 mg/dL High 74-99 Comment on above: Order Comment: Fan meade Type: BLOOD SPECIMENOrdering Facility: [facility] Address: [address] [place] [address] Result Comment: The [place] Diabetes [employer] (ADA) provides guidance for cutoff [...] Standards of Medical Care in Diabetes 2016, [place] [employer]. Diabetes Care. 2016.39(Suppl 1). Performed By: #### 2 4321-2, 85212-8, 6-4 ####VILLARREAL LABORATORYCLIA [id number] [place] [address] [place] Potassium [Moles/Vol] 4.5 mmol/L Normal 3.7-5.[address] [facility] Comment on above: Order Comment: Speci men Type: BLOOD SPECIMENOrdering Facility: [facility] Address: [address] [place] [address] Performed By: #### 2 4321-2, 84193-4, 6-4 ####VILLAR[facility] LABORATORYCLIA [id number] [place] [address] [place] Sodium [Moles/Vol] 136 mmol/L Normal 136-144 Comment on above: Order Comment: Speci men Type: BLOOD SPECIMENOrdering Facility: [facility] Address: [address] [place] [address] Performed By: #### 2 4321-2, 37333-6, 6-4 ####V[facility] LABORATORYCLIA [id number] [place] [address] [place] Urea nitrogen [Mass/Vol] 43 mg/dL High 7-21 Comment on above: Order Comment: Speci men Type: BLOOD SPECIMENOrdering Facility: [facility] Address: [address] [place] [address] Performed By: #### 2 4321-2, 09901-2, 64 ####VILLARREAL LABORATORYCLIA [id number] [address] [place] CBC W Auto Differential pane l (Bld)on 12-09-2024 Basophils (Bld) [#/Vol] 10*3/uL Normal <0.11 [facility] Comment on above: Order Comment: Speci men Type: BLOOD SPECIMENOrdering Facility: [facility] Address: [address] [place] [address] Performed By: #### 5 7021-8 ####VILLARREAL LABORATORYCLIA [id number] [address] STATES [facility] Basophils/100 WBC (Bld) 0.1 % Normal [facility] Comment on above: Order Comment: Speci men Type: BLOOD SPECIMENOrdering Facility: [facility] Address: [address] [place] [address] Performed By: #### 5 7021-8 ####VILLARREAL LABORATORYCLIA [id number] [address] [place] Differential cell count method Nom (Bld) Auto Normal Comment on above: Order Comment: Speci men Type: BLOOD SPECIMENOrdering Facility: [facility] Address: [address] [place] [address] Performed By: #### 5 7021-8 ####VILLAR[facility] LABORATORYCLIA [id number] [place] [address] [place] Eosinophils (Bld) [#/Vol] 0.15 10*3/uL Normal <0.46 Comment on above: Order Comment: Speci men Type: BLOOD SPECIMENOrdering Facility: [facility] Address: [address] [place] [address] Performed By: #### 5 7021-8 ####VILLAR[facility] LABORATORYCLIA [id number] [place] [address] [place] Eosinophils/100 WBC (Bld) 1.4 % Normal Comment on above: Order Comment: Speci men Type: BLOOD SPECIMENOrdering Facility: [facility] Address: [address] [place] [address] Performed By: #### 5 7021-8 ####VILLARREAL LABORATORYCLIA [id number] [address] [place] Erythrocyte distribution width (RBC) [Ratio] 16.4 % High 11.5-15.0 Comment on above: Order Comment: Speci men Type: BLOOD SPECIMENOrdering Facility: [facility] Address: [address] [place] [address] Performed By: #### 5 7021-8 ####VILLAR[facility]AL LABORATORYCLIA [id number] [address] [place] Hematocrit (Bld) [Volume fraction] 24.0 % Low 36.0-46.0 Comment on above: Order Comment: Speci men Type: BLOOD SPECIMENOrdering Facility: [facility] Address: [address] [place] [address] Performed By: #### 5 7021-8 ####VILLAR[facility] LABORATORYCLIA [id number] [place] [address] [place] Hemoglobin (Bld) [Mass/Vol] 7.6 g/dL Low 11.5-15.5 Comment on above: Order Comment: Speci men Type: BLOOD SPECIMENOrdering Facility: [facility] Address: [address] [place] [address] Performed By: #### 5 7021-8 ####VILL[facility] LABORATORYCLIA [id number] [place] [address] [place] Immature granulocytes (Bld) [#/Vol] 0.23 10*3/uL High <0.10 Comment on above: Order Comment: Speci men Type: BLOOD SPECIMENOrdering Facility: [facility] Address: [address] [place] [address] Performed By: #### 5 7021-8 ####VILLARRE[facility] LABORATORYCLIA [id number] [place] [address] [place] Immature granulocytes/100 WBC (Bld) 2.1 % Normal Comment on above: Order Comment: Speci men Type: BLOOD SPECIMENOrdering Facility: [facility] Address: [address] [place] [address] Performed By: #### 5 7021-8 ####VILLARREAL LABORATORYCLIA [id number] [place] [address] [place] Lymphocytes (Bld) [#/Vol] 1.43 10*3/uL Normal 1.00-4.00 Comment on above: Order Comment: Speci men Type: BLOOD SPECIMENOrdering Facility: [facility] Address: [address] [place] [address] Performed By: #### 5 7021-8 ####VILLARREAL LABORATORYCLIA [id number] [address] [place] Lymphocytes/100 WBC (Bld) 13.3 % Normal Comment on above: Order Comment: Speci men Type: BLOOD SPECIMENOrdering Facility: [facility] Address: [address] [place] [address] Performed By: #### 5 7021-8 ####VILLARREAL LABORATORYCLIA [id number] [address] MCH (RBC) [Entitic mass] 27.9 pg Normal 26.0-34.0 Comment on above: Order Comment: Speci men Type: BLOOD SPECIMENOrdering Facility: [facility] Address: [address] [place] [address] Performed By: #### 5 7021-8 ####VILLAR[facility] LABORATORYCLIA [id number] [address] [place] MCHC (RBC) [Mass/Vol] 31.7 g/dL Normal 30.5-36.[address] [facility] Comment on above: Order Comment: Speci men Type: BLOOD SPECIMENOrdering Facility: [facility] Address: [address] [place] [address] Performed By: #### 5 7021-8 ####VILLAR[facility] LABORATORYCLIA [id number] [address] MCV (RBC) [Entitic vol] 88.2 fL Normal 80.0-100.0 [facility] Comment on above: Order Comment: Speci men Type: BLOOD SPECIMENOrdering Facility: [facility] Address: [address] [place] [address] Performed By: #### 5 7021-8 ####VILL[facility] LABORATORYCLIA [id number] [place] [address] [place] Monocytes (Bld) [#/Vol] 0.62 10*3/uL Normal <0.87 Comment on above: Order Comment: Speci men Type: BLOOD SPECIMENOrdering Facility: [facility] Address: [address] [place] [address] Performed By: #### 5 7021-8 ####VILL[facility] LABORATORYCLIA [id number] [address] Monocytes/100 WBC (Bld) 5.8 % Normal [facility] Comment on above: Order Comment: Speci men Type: BLOOD SPECIMENOrdering Facility: [facility] Address: [address] [place] [address] Performed By: #### 5 7021-8 ####VILL[facility] LABORATORYCLIA [id number] [place] [address] [place] Neutrophils (Bld) [#/Vol] 8.31 10*3/uL High 1.45-7.50 Comment on above: Order Comment: Speci men Type: BLOOD SPECIMENOrdering Facility: [facility] Address: [address] [place] [address] Performed By: #### 5 7021-8 ####VILL[facility] LABORATORYCLIA [id number] [place] [address] [place] Neutrophils/100 WBC (Bld) 77.3 % Normal Comment on above: Order Comment: Speci men Type: BLOOD SPECIMENOrdering Facility: [facility] Address: [address] [place] [address] Performed By: #### 5 7021-8 ####V[facility] LABORATORYCLIA [id number] [place] [address] [place] Nucleated RBC (Bld) [#/Vol] 10*3/uL Normal <0.01 Comment on above: Order Comment: Speci men Type: BLOOD SPECIMENOrdering Facility: [facility] Address: [address] [place] [address] Performed By: #### 5 7021-8 ####V[facility] LABORATORYCLIA [id number] [place] [address] [place] Nucleated RBC/100 WBC (Bld) [Ratio] 0.0 /100 WBC Normal Comment on above: Order Comment: Speci men Type: BLOOD SPECIMENOrdering Facility: [facility] Address: [address] [place] [address] Performed By: #### 5 7021-8 ####VILL[facility] LABORATORYCLIA [id number] [place] [address] [place] Platelet mean volume (Bld) [Entitic vol] 8.3 fL Low 9.0-12.7 Comment on above: Order Comment: Speci men Type: BLOOD SPECIMENOrdering Facility: [facility] Address: [address] [place] [address] Performed By: #### 5 7021-8 ####VILL[facility] LABORATORYCLIA [id number] [address] [place] Platelets (Bld) [#/Vol] 577 10*3/uL High 150-400 Comment on above: Order Comment: Speci men Type: BLOOD SPECIMENOrdering Facility: [facility] Address: [address] [place] [address] Performed By: #### 5 7021-8 ####[facility] LABORATORYCLIA [id number] [place] [address] [place] [facility] [place] RBC (Bld) [#/Vol] 2.72 10*6/uL Low 3.90-5.20 [facility] Comment on above: Order Comment: Speci men Type: BLOOD SPECIMENOrdering Facility: [facility] Address: [address] [place] [address] Performed By: #### 5 7021-8 ####[facility] LABORATORYCLIA [id number] [address] [place] WBC (Bld) [#/Vol] 10.75 10*3/uL Normal 3.70-11.00 [facility] Comment on above: Order Comment: Speci men Type: BLOOD SPECIMENOrdering Facility: [facility] Address: [address] [place] [address] Performed By: #### 5 7021-8 ####[facility] LABORATORYCLIA [id number] [address] CELIAC SCREENon 12-09-2024 GLIAD DEAMIDATED IGA QUAL Negative Normal Negative, Test not Indicated Comment on above: Order Comment: Speci halina Type: BLOOD SPECIMENOrdering Facility: [facility] Address: [address] [place] [address] Result Comment: This is used as an aid in diagnosis of celiac disease. Clinical correlation is required.The following results were obtained with an [employer] QUANTA Lite Gliadin IgA JOE Gliadin. Gliadin IgA values obtained with different manufacturers' assay methods may not be used interchangeably. The magnitude of the reported IgA levels cannot be correlated to an endpoint titer. Performed By: #### L [id number] ####[facility] LABCLIA [id number] [address] [place] Gliadin peptide IgA Qn (S) 2 Units Normal <20 Comment on above: Order Comment: Fan meade Type: BLOOD SPECIMENOrdering Facility: [facility] Address: [address] [place] [address] Performed By: #### L [id number] ####[facility] LABCLIA [id number] [address] [place] INTERPRETATION No serological evidence of celiac disease, however, if celiac disease is clinically suspected and patient is not on gluten-free diet, histological diagnosis may be considered. HLA testing may help with risk assessment. Normal Comment on above: Order Comment: Fan meade Type: BLOOD SPECIMENOrdering Facility: [facility] Address: [address] [place] [address] Performed By: #### L [id number] ####[facility] LABCLIA [id number] [address] TRANSGLUTAMINASE IGA ABS INTERPRETATION Negative Normal Negative Comment on above: Order Comment: Fan meade Type: BLOOD SPECIMENOrdering Facility: [facility] Address: [address] [place] [address] Result Comment: The following results were obtained with [employer] QUANTA Lite R h-tTG IgA JOE.???R h-tTG IgA values obtained with different manufacturers' assay methods may not be used interchangeably. The magnitude of the reported IgA levels cannot be corelated to an endpoint???concentration.This is used as an aid in diagnosis of celiac disease. Clinical correlation is required. Performed By: #### L [id number] ####[facility] LABCLIA [id number] [address] [place] tTG IgA Qn (S) <2 Normal <4 Comment on above: Order Comment: Speci men Type: BLOOD SPECIMENOrdering Facility: [facility] Address: [address] [place] [address] Performed By: #### L [id number] ####[facility] LABCLIA [id number] [place] [id number] [place] CONSULT PROGon 12-09-2024 CONSULT PROG Normal CONSULT PROG Normal CONSULT PROG Normal Ferritin SerPl-mCncon 2024 Ferritin [Mass/Vol] 1588.0 ng/mL High 14.7-205.[address] [facility] Comment on above: Order Comment: Speci men Type: BLOOD SPECIMENOrdering Facility: [facility] Address: [address] [place] [address] Performed By: #### 2 4321-2, 37766-7, 2276-4 ####[facility] LABORATORYCLIA [id number] [place] [address] [place] Haptoglob SerPl-mCncon 12-09 Haptoglobin [Mass/Vol] 483 mg/dL High 31-238 [facility] Comment on above: Order Comment: Speci men Type: BLOOD SPECIMENOrdering Facility: [facility] Address: [address] [place] [address] Performed By: #### 4 542-7 ####[facility] LABCLIA [id number] [place] [id number] [place] IgA SerPl-mCncon 12-09-2024 IgA [Mass/Vol] 166 mg/dL Normal 70-400 Comment on above: Order Comment: Speci men Type: BLOOD SPECIMENOrdering Facility: [facility] Address: [address] [place] [address] Performed By: #### 2 458-8 ####[facility] LABCLIA [id number] [place] [id number] [place] Iron and Iron binding capaci ty panelon 12-09-2024 Iron [Mass/Vol] 91 ug/dL Normal 41-186 Comment on above: Order Comment: Speci men Type: BLOOD SPECIMENOrdering Facility: [facility] Address: [address] [place] [address] Performed By: #### 2 4321-2, 61219-2, 6-4 ####[facility] LABORATORYCLIA [id number] [address] Iron binding capacity [Mass/Vol] 223 ug/dL Low 232-386 Comment on above: Order Comment: Speci men Type: BLOOD SPECIMENOrdering Facility: [facility] Address: [address] [place] [address] Performed By: #### 2 4321-2, 89449-9, 2276-02 ####[facility] LABORATORYCLIA [id number] [address] Iron/TIBC [Molar ratio] 40.8 % Normal 15.0-57.0 [facility] Comment on above: Order Comment: Speci men Type: BLOOD SPECIMENOrdering Facility: [facility] Address: [address] [place] [address] Performed By: #### 2 4321-2, 05943-8, 2276-02 ####[facility] LABORATORYCLIA [id number] [address] STATES [facility] CBC W Auto Differential pane l (Bld)on 12-08-2024 Basophils (Bld) [#/Vol] 0.03 10*3/uL Normal <0.11 Comment on above: Order Comment: Speci men Type: BLOOD SPECIMENOrdering Facility: [facility] Address: [address] [place] [address] Performed By: #### 5 7021-8 ####[facility] LABORATORYCLIA [id number] [address] Basophils/100 WBC (Bld) 0.3 % Normal [facility] Comment on above: Order Comment: Speci men Type: BLOOD SPECIMENOrdering Facility: [facility] Address: [address] [place] [address] Performed By: #### 5 7021-8 ####[facility] LABORATORYCLIA [id number] [address] Differential cell count method Nom (Bld) Auto Normal Comment on above: Order Comment: Speci men Type: BLOOD SPECIMENOrdering Facility: [facility] Address: [address] [place] [address] Performed By: #### 5 7021-8 ####[facility] LABORATORYCLIA [id number] [place] [address] [place] Eosinophils (Bld) [#/Vol] 0.13 10*3/uL Normal <0.46 Comment on above: Order Comment: Speci men Type: BLOOD SPECIMENOrdering Facility: [facility] Address: [address] [place] [address] Performed By: #### 5 7021-8 ####[facility] LABORATORYCLIA [id number] [address] Eosinophils/100 WBC (Bld) 1.1 % Normal Comment on above: Order Comment: Speci men Type: BLOOD SPECIMENOrdering Facility: [facility] Address: [address] [place] [address] Performed By: #### 5 7021-8 ####[facility] LABORATORYCLIA [id number] [address] [place] Erythrocyte distribution width (RBC) [Ratio] 16.0 % High 11.5-15.0 Comment on above: Order Comment: Speci men Type: BLOOD SPECIMENOrdering Facility: [facility] Address: [address] [place] [address] Performed By: #### 5 7021-8 ####[facility] LABORATORYCLIA [id number] [address] Hematocrit (Bld) [Volume fraction] 24.0 % Low 36.0-46.0 Comment on above: Order Comment: Speci men Type: BLOOD SPECIMENOrdering Facility: [facility] Address: [address] [place] [address] Performed By: #### 5 7021-8 ####[facility] LABORATORYCLIA [id number] [place] [address] [place] Hemoglobin (Bld) [Mass/Vol] 7.7 g/dL Low 11.5-15.5 Comment on above: Order Comment: Speci men Type: BLOOD SPECIMENOrdering Facility: [facility] Address: [address] [place] [address] Performed By: #### 5 7021-8 ####[facility] LABORATORYCLIA [id number] [place] [address] [place] Immature granulocytes (Bld) [#/Vol] 0.19 10*3/uL High <0.10 Comment on above: Order Comment: Speci men Type: BLOOD SPECIMENOrdering Facility: [facility] Address: [address] [place] [address] Performed By: #### 5 7021-8 ####[facility]ILL[facility] LABORATORYCLIA [id number] [address] [place] Immature granulocytes/100 WBC (Bld) 1.6 % Normal Comment on above: Order Comment: Speci men Type: BLOOD SPECIMENOrdering Facility: [facility] Address: [address] [place] [address] Performed By: #### 5 7021-8 ####[facility]ILLARRE[facility] LABORATORYCLIA [id number] [place] [address] [place] Lymphocytes (Bld) [#/Vol] 1.38 10*3/uL Normal 1.00-4.00 Comment on above: Order Comment: Speci men Type: BLOOD SPECIMENOrdering Facility: [facility] Address: [address] [place] [address] Performed By: #### 5 7021-8 ####[facility] LABORATORYCLIA [id number] [address] [place] Lymphocytes/100 WBC (Bld) 11.9 % Normal Comment on above: Order Comment: Speci men Type: BLOOD SPECIMENOrdering Facility: [facility] Address: [address] [place] [address] Performed By: #### 5 7021-8 ####[facility]ILL[facility] LABORATORYCLIA [id number] [address] MCH (RBC) [Entitic mass] 28.2 pg Normal 26.0-34.0 Comment on above: Order Comment: Speci men Type: BLOOD SPECIMENOrdering Facility: [facility] Address: [address] [place] [address] Performed By: #### 5 7021-8 ####VILLAR[facility]AL LABORATORYCLIA [id number] [address] [place] MCHC (RBC) [Mass/Vol] 32.1 g/dL Normal 30.5-36.[address] [facility] Comment on above: Order Comment: Speci men Type: BLOOD SPECIMENOrdering Facility: [facility] Address: [address] [place] [address] Performed By: #### 5 7021-8 ####VILLARREAL LABORATORYCLIA [id number] [address] MCV (RBC) [Entitic vol] 87.9 fL Normal 80.0-100.0 [facility] Comment on above: Order Comment: Speci men Type: BLOOD SPECIMENOrdering Facility: [facility] Address: [address] [place] [address] Performed By: #### 5 7021-8 ####VILLARRE[facility] LABORATORYCLIA [id number] [address] Monocytes (Bld) [#/Vol] 0.77 10*3/uL Normal <0.87 Comment on above: Order Comment: Speci men Type: BLOOD SPECIMENOrdering Facility: [facility] Address: [address] [place] [address] Performed By: #### 5 7021-8 ####VILLARREAL LABORATORYCLIA [id number] [address] Monocytes/100 WBC (Bld) 6.6 % Normal [facility] Comment on above: Order Comment: Speci men Type: BLOOD SPECIMENOrdering Facility: [facility] Address: [address] [place] [address] Performed By: #### 5 7021-8 ####VILLARREAL LABORATORYCLIA [id number] [place] [address] [place] Neutrophils (Bld) [#/Vol] 9.10 10*3/uL High 1.45-7.50 Comment on above: Order Comment: Speci men Type: BLOOD SPECIMENOrdering Facility: [facility] Address: [address] [place] [address] Performed By: #### 5 7021-8 ####VILLARREAL LABORATORYCLIA [id number] [place] [address] [place] Neutrophils/100 WBC (Bld) 78.5 % Normal Comment on above: Order Comment: Speci men Type: BLOOD SPECIMENOrdering Facility: [facility] Address: [address] [place] [address] Performed By: #### 5 7021-8 ####VILLARREAL LABORATORYCLIA [id number] [place] [address] [place] Nucleated RBC (Bld) [#/Vol] 10*3/uL Normal <0.01 Comment on above: Order Comment: Speci men Type: BLOOD SPECIMENOrdering Facility: [facility] Address: [address] [place] [address] Performed By: #### 5 7021-8 ####VILLARREAL LABORATORYCLIA [id number] [address] [place] Nucleated RBC/100 WBC (Bld) [Ratio] 0.0 /100 WBC Normal Comment on above: Order Comment: Speci men Type: BLOOD SPECIMENOrdering Facility: [facility] Address: [address] [place] [address] Performed By: #### 5 7021-8 ####VILLARREAL LABORATORYCLIA [id number] [place] [address] [place] Platelet mean volume (Bld) [Entitic vol] 8.4 fL Low 9.0-12.7 Comment on above: Order Comment: Speci men Type: BLOOD SPECIMENOrdering Facility: [facility] Address: [address] [place] [address] [place] [address] Performed By: #### 5 7021-8 ####VILLARREAL LABORATORYCLIA [id number] [address] [place] Platelets (Bld) [#/Vol] 577 10*3/uL High 150-400 Comment on above: Order Comment: Speci men Type: BLOOD SPECIMENOrdering Facility: [facility] Address: [address] [place] [address] Performed By: #### 5 7021-8 ####[facility] LABORATORYCLIA [id number] [place] [address] [place] RBC (Bld) [#/Vol] 2.73 10*6/uL Low 3.90-5.20 [facility] Comment on above: Order Comment: Speci men Type: BLOOD SPECIMENOrdering Facility: [facility] Address: [address] [place] [address] Performed By: #### 5 7021-8 ####[facility] LABORATORYCLIA [id number] [address] [place] WBC (Bld) [#/Vol] 11.60 10*3/uL High 3.70-11.00 [facility] Comment on above: Order Comment: Speci men Type: BLOOD SPECIMENOrdering Facility: [facility] Address: [address] [place] [address] Performed By: #### 5 7021-8 ####[facility] LABORATORYCLIA [id number] [address] [place] CONSULT PROGon 12-08-2024 CONSULT PROG Normal CONSULT PROG Normal CONSULT PRO Normal Comprehensive metabolic 2000 panelon 12-08-2024 Albumin [Mass/Vol] 2.6 g/dL Low 3.9-4.9 Comment on above: Order Comment: Speci men Type: BLOOD SPECIMENOrdering Facility: [facility] Address: [address] [place] [address] Performed By: #### 2 4323-8, 05293-1 ####VILLARREAL LABORATORYCLIA [id number] [place] [address] [place] ALP [Catalytic activity/Vol] 106 U/L Normal 34-123 Comment on above: Order Comment: Speci men Type: BLOOD SPECIMENOrdering Facility: [facility] Address: [address] [place] [address] Performed By: #### 2 432-8, ####VILLARREAL LABORATORYCLIA [id number] [place] [address] [place] ALT [Catalytic activity/Vol] U/L Low 7-38 Comment on above: Order Comment: Speci men Type: BLOOD SPECIMENOrdering Facility: [facility] Address: [address] [place] [address] Performed By: #### 2 8, ####VILLARREAL LABORATORYCLIA [id number] [place] [address] [place] Anion gap [Moles/Vol] 8 mmol/L Normal 8-[address] [facility] Comment on above: Order Comment: Speci men Type: BLOOD SPECIMENOrdering Facility: [facility] Address: [address] [place] [address] Performed By: #### 2 8, ####VILLARREAL LABORATORYCLIA [id number] [address] [place] AST [Catalytic activity/Vol] 20 U/L Normal 13-35 Comment on above: Order Comment: Speci men Type: BLOOD SPECIMENOrdering Facility: [facility] Address: [address] [place] [address] Performed By: #### 2 4323-8, ####VILLARRE[facility] LABORATORYCLIA [id number] [place] [address] [place] Bilirubin [Mass/Vol] mg/dL Low 0.2-1.3 [facility] Comment on above: Order Comment: Speci men Type: BLOOD SPECIMENOrdering Facility: [facility] Address: [address] [place] [address] Performed By: #### 2 432-8, ####VILLARRE[facility] LABORATORYCLIA [id number] [place] [address] [place] Calcium [Mass/Vol] 9.0 mg/dL Normal 8.5-10.2 Comment on above: Order Comment: Speci men Type: BLOOD SPECIMENOrdering Facility: [facility] Address: [address] [place] [address] Performed By: #### 2 4323-8, ####VILLARRE[facility] LABORATORYCLIA [id number] [place] [address] [place] Chloride [Moles/Vol] 99 mmol/L Normal 98-107 [facility] Comment on above: Order Comment: Speci men Type: BLOOD SPECIMENOrdering Facility: [facility] Address: [address] [place] [address] Performed By: #### 2 4323-8, ####VILLARREAL LABORATORYCLIA [id number] [place] [address] [place] CO2 [Moles/Vol] 27 mmol/L Normal 22-30 Comment on above: Order Comment: Speci men Type: BLOOD SPECIMENOrdering Facility: [facility] Address: [address] [place] [address] Performed By: #### 2 4323-8, ####VILLARREAL LABORATORYCLIA [id number] [place] [address] [place] Creatinine [Mass/Vol] 0.86 mg/dL Normal 0.58-0.[address] [facility] Comment on above: Order Comment: Speci men Type: BLOOD SPECIMENOrdering Facility: [facility] Address: [address] [place] [address] Performed By: #### 2 4323-8, ####VILLARREAL LABORATORYCLIA [id number] [address] [place] Creatinine and Glomerular filtration rate.predicted panel (S/P/Bld) 65 mL/min/1.73m??? Normal >=60 Comment on above: Order Comment: Speci men Type: BLOOD SPECIMENOrdering Facility: [facility] Address: [address] [place] [address] Result Comment: Hilda mated Glomerular Filtration Rate [...] actual GFR. Performed By: #### 2 4323-8, ####[facility] LABORATORYCLIA [id number] [place] [address] [place] Glucose [Mass/Vol] 170 mg/dL High 74-99 Comment on above: Order Comment: Fan meade Type: BLOOD SPECIMENOrdering Facility: [facility] Address: [address] [place] [address] Result Comment: The [place] (ADA) provides guidance for cutoff [...] Standards of Medical Care in Diabetes 2016, [place]. Diabetes Care. 2016.39(Suppl 1). Performed By: #### 2 43201-19, ####[facility] LABORATORYCLIA [id number] [place] [address] [place] Potassium [Moles/Vol] 4.5 mmol/L Normal 3.7-5.[address] [facility] Comment on above: Order Comment: Fan meade Type: BLOOD SPECIMENOrdering Facility: [facility] Address: [address] [place] [id number] Performed By: #### 2 4323-8, ####[facility] LABORATORYCLIA [id number] [place] [address] [place] Protein [Mass/Vol] 5.3 g/dL Low 6.3-8.0 Comment on above: Order Comment: Speci men Type: BLOOD SPECIMENOrdering Facility: [facility] Address: [address] [place], [place] [address] Performed By: #### 2 4323-8, ####VILLARREAL LABORATORYCLIA [id number] [place] [id number] [place] Sodium [Moles/Vol] 134 mmol/L Low 136-144 Comment on above: Order Comment: Speci men Type: BLOOD SPECIMENOrdering Facility: [facility] Address: [address] [place] [address] Performed By: #### 2 4322-8, ####VILLARREAL LABORATORYCLIA [id number] [address] [place] [facility] Urea nitrogen [Mass/Vol] 45 mg/dL High 7-21 Comment on above: Order Comment: Speci men Type: BLOOD SPECIMENOrdering Facility: [facility] Address: [address] [place] [address] Performed By: #### 2 4322-8, ####VILLARREAL LABORATORYCLIA [id number] [address] [place] Magnesium SerPl-mCncon 12-08 Magnesium [Mass/Vol] 1.7 mg/dL Normal 1.7-2.3 [facility] Comment on above: Order Comment: Speci men Type: BLOOD SPECIMENOrdering Facility: [facility] Address: [address] [place] [address] Performed By: #### 2 4322-8, ####VILLARREAL LABORATORYCLIA [id number] [place] [id number] [place] OCCULT BLD EXAM-DIAGon 12-08 OCCULT BLD EXAM-DIAG Negative Normal [facility] Comment on above: Performed By: #### O BDX ####VILLARREAL LABORATORYCLIA [id number] [place] [address] [place] ALLIED HEALTHon 12-07-2024 [facility] CASE MANAGEMon 12-07-2024 CASE MANAGEM [facility] CBC W Auto Differential pane l (Bld)on 12-07-2024 Basophils (Bld) [#/Vol] 10*3/uL Normal <0.11 M [facility] Comment on above: Order Comment: Speci men Type: BLOOD SPECIMENOrdering Facility: [facility] Address: [address] [place] [address] Performed By: #### 5 7021-8 ####VILLARREAL LABORATORYCLIA [id number] [place] [address] [place] Basophils/100 WBC (Bld) 0.2 % Normal [facility] Comment on above: Order Comment: Speci men Type: BLOOD SPECIMENOrdering Facility: [facility] Address: [address] [place] [address] Performed By: #### 5 7021-8 ####VILLARREAL LABORATORYCLIA [id number] [place] [address] [place] Differential cell count method Nom (Bld) Auto [facility] Comment on above: Order Comment: Speci men Type: BLOOD SPECIMENOrdering Facility: [facility] Address: [address] [place] [address] Performed By: #### 5 7021-8 ####VILLARREAL LABORATORYCLIA [id number] [place] [address] [place] Eosinophils (Bld) [#/Vol] 0.09 10*3/uL Normal <0.46 Comment on above: Order Comment: Speci men Type: BLOOD SPECIMENOrdering Facility: [facility] Address: [address] [place] [address] Performed By: #### 5 7021-8 ####VILLARREAL LABORATORYCLIA [id number] [address] [place] Eosinophils/100 WBC (Bld) 0.8 % [facility] Comment on above: Order Comment: Speci men Type: BLOOD SPECIMENOrdering Facility: [facility] Address: [address] [place] [address] Performed By: #### 5 7021-8 ####VILLARREAL LABORATORYCLIA [id number] [place] [address] [place] Erythrocyte distribution width (RBC) [Ratio] 16.0 % High 11.5-15.0 Comment on above: Order Comment: Speci men Type: BLOOD SPECIMENOrdering Facility: [facility] Address: [address] [place] [address] Performed By: #### 5 7021-8 ####VILLARREAL LABORATORYCLIA [id number] [place] [address] [place] Hematocrit (Bld) [Volume fraction] 25.2 % Low 36.0-46.0 Comment on above: Order Comment: Speci men Type: BLOOD SPECIMENOrdering Facility: [facility] Address: [address] [place] [address] Performed By: #### 5 7021-8 ####VILLARREAL LABORATORYCLIA [id number] [place] [address] [place] Hemoglobin (Bld) [Mass/Vol] 8.2 g/dL Low 11.5-15.5 Comment on above: Order Comment: Speci men Type: BLOOD SPECIMENOrdering Facility: [facility] Address: [address] [place] [address] Performed By: #### 5 7021-8 ####VILLARRE[facility] LABORATORYCLIA [id number] [place] [address] [place] Immature granulocytes (Bld) [#/Vol] 0.18 10*3/uL High <0.10 Comment on above: Order Comment: Speci men Type: BLOOD SPECIMENOrdering Facility: [facility] Address: [address] [place] [address] Performed By: #### 5 7021-8 ####VILLARREAL LABORATORYCLIA [id number] [address] [place] Immature granulocytes/100 WBC (Bld) 1.6 % Normal Comment on above: Order Comment: Speci men Type: BLOOD SPECIMENOrdering Facility: [facility] Address: [address] [place] [address] Performed By: #### 5 7021-8 ####VILLARREAL LABORATORYCLIA [id number] [address] Lymphocytes (Bld) [#/Vol] 0.83 10*3/uL Low 1.00-4.00 Comment on above: Order Comment: Speci men Type: BLOOD SPECIMENOrdering Facility: [facility] Address: [address] [place] [address] Performed By: #### 5 7021-8 ####VILLARREAL LABORATORYCLIA [id number] [address] Lymphocytes/100 WBC (Bld) 7.6 % Normal Comment on above: Order Comment: Speci men Type: BLOOD SPECIMENOrdering Facility: [facility] Address: [address] [place] [address] Performed By: #### 5 7021-8 ####VILLARREAL LABORATORYCLIA [id number] [address] MCH (RBC) [Entitic mass] 28.5 pg Normal 26.0-34.0 Comment on above: Order Comment: Speci men Type: BLOOD SPECIMENOrdering Facility: [facility] Address: [address] [place] [address] Performed By: #### 5 7021-8 ####VILLARREAL LABORATORYCLIA [id number] [address] MCHC (RBC) [Mass/Vol] 32.5 g/dL Normal 30.5-36.[address] [facility] Comment on above: Order Comment: Speci men Type: BLOOD SPECIMENOrdering Facility: [facility] Address: [address] [place] [address] Performed By: #### 5 7021-8 ####VILLARREAL LABORATORYCLIA [id number] [address] MCV (RBC) [Entitic vol] 87.5 fL Normal 80.0-100.0 M [facility] Comment on above: Order Comment: Speci men Type: BLOOD SPECIMENOrdering Facility: [facility] Address: [address] [place] [address] Performed By: #### 5 7021-8 ####VILLARREAL LABORATORYCLIA [id number] [place] [address] [place] Monocytes (Bld) [#/Vol] 0.81 10*3/uL Normal <0.87 Comment on above: Order Comment: Speci men Type: BLOOD SPECIMENOrdering Facility: [facility] Address: [address] [place] [address] Performed By: #### 5 7021-8 ####VILLARREAL LABORATORYCLIA [id number] [place] [id number] [place] Monocytes/100 WBC (Bld) 7.4 % Normal [facility] Comment on above: Order Comment: Speci men Type: BLOOD SPECIMENOrdering Facility: [facility] Address: [address] [place] [address] Performed By: #### 5 7021-8 ####VILLARREAL LABORATORYCLIA [id number] [place] [address] [place] Neutrophils (Bld) [#/Vol] 8.99 10*3/uL High 1.45-7.50 Comment on above: Order Comment: Speci men Type: BLOOD SPECIMENOrdering Facility: [facility] Address: [address] [place] [address] Performed By: #### 5 7021-8 ####VILLARREAL LABORATORYCLIA [id number] [place] [address] [place] Neutrophils/100 WBC (Bld) 82.4 % Normal Comment on above: Order Comment: Speci men Type: BLOOD SPECIMENOrdering Facility: [facility] Address: [address] [place] [address] Performed By: #### 5 7021-8 ####VILLARREAL LABORATORYCLIA [id number] [place] [address] [place] Nucleated RBC (Bld) [#/Vol] 10*3/uL Normal <0.01 Comment on above: Order Comment: Speci men Type: BLOOD SPECIMENOrdering Facility: [facility] Address: [address] [place] [address] Performed By: #### 5 7021-8 ####VILLARREAL LABORATORYCLIA [id number] [place] [address] [place] Nucleated RBC/100 WBC (Bld) [Ratio] 0.0 /100 WBC Normal Comment on above: Order Comment: Speci men Type: BLOOD SPECIMENOrdering Facility: [facility] Address: [address] [place] [address] Performed By: #### 5 7021-8 ####VILLARREAL LABORATORYCLIA [id number] [place] [address] [place] Platelet mean volume (Bld) [Entitic vol] 8.3 fL Low 9.0-12.7 Comment on above: Order Comment: Speci men Type: BLOOD SPECIMENOrdering Facility: [facility] Address: [address] [place] [address] Performed By: #### 5 7021-8 ####L[facility]ERT[facility] LABORATORYCLIA [id number] [address] [place] Platelets (Bld) [#/Vol] 564 10*3/uL High 150-400 Comment on above: Order Comment: Speci men Type: BLOOD SPECIMENOrdering Facility: [facility] Address: [facility] [place] [address] Performed By: #### 5 7021-8 ####[facility] LABORATORYCLIA [id number] [place] [address] [place] RBC (Bld) [#/Vol] 2.88 10*6/uL Low 3.90-5.20 [facility] Comment on above: Order Comment: Speci men Type: BLOOD SPECIMENOrdering Facility: [facility] Address: [facility] [place] [address] Performed By: #### 5 7021-8 ####VILLARREAL LABORATORYCLIA [id number] [place] [address] [place] [facility] [place] WBC (Bld) [#/Vol] 10.92 10*3/uL Normal 3.70-11.00 [facility] Comment on above: Order Comment: Speci men Type: BLOOD SPECIMENOrdering Facility: [facility] Address: [address] [place] [address] Performed By: #### 5 7021-8 ####[facility] LABORATORYCLIA [id number] [address] [place] CONSULTon 12-07-2024 CONSULT Normal CONSULT PROGon 12-07-2024 CONSULT PROG Normal CONSULT PROG Normal CONSULT PROG Normal CONSULT PRO Normal CRP SerPl-mCncon 12-07-2024 CRP [Mass/Vol] 3.6 mg/dL High <0.9 Comment on above: Order Comment: Speci men Type: BLOOD SPECIMENOrdering Facility: [facility] Address: [address] [place] [address] Performed By: #### 1 988-5, 24720-8, 13570-4, 3040-3 ####[facility] LABORATORYCLIA [id number] [place] [address] [place] Comprehensive metabolic 2000 panelon 12-07-2024 Albumin [Mass/Vol] 2.6 g/dL Low 3.9-4.9 Comment on above: Order Comment: Speci men Type: BLOOD SPECIMENOrdering Facility: [facility] Address: [address] [place] [address] Performed By: #### 1 988-5, 58898-4, 01383-5, 3040-3 ####[facility] LABORATORYCLIA [id number] [place] [id number] [place] ALP [Catalytic activity/Vol] 111 U/L Normal 34-123 Comment on above: Order Comment: Speci men Type: BLOOD SPECIMENOrdering Facility: [facility] Address: [address] [place] [address] Performed By: #### 1 988-5, 57350-2, 25465-1, 3040-3 ####[facility] LABORATORYCLIA [id number] [place] [id number] [place] ALT [Catalytic activity/Vol] U/L Low 7-38 Comment on above: Order Comment: Speci men Type: BLOOD SPECIMENOrdering Facility: [facility] Address: [address] [place] [address] Performed By: #### 1 988-5, 22034-2, 87331-0, 0-3 ####VILLARREAL LABORATORYCLIA [id number] [place] [address] [place] Anion gap [Moles/Vol] 9 mmol/L Normal 8-[address] [facility] Comment on above: Order Comment: Speci men Type: BLOOD SPECIMENOrdering Facility: [facility] Address: [address] [place] [address] Performed By: #### 1 988-5, 60594-1, 65413-1, 3040-3 ####VILLARRE[facility] LABORATORYCLIA [id number] [address] [place] AST [Catalytic activity/Vol] 29 U/L Normal 13-35 Comment on above: Order Comment: Speci men Type: BLOOD SPECIMENOrdering Facility: [facility] Address: [address] [place] [id number] Performed By: #### 1 988-5, 27478-4, 92789-4, 3040-3 ####VILLARREAL LABORATORYCLIA [id number] [place] [address] [place] Bilirubin [Mass/Vol] mg/dL Low 0.2-1.3 [facility] Comment on above: Order Comment: Speci men Type: BLOOD SPECIMENOrdering Facility: [facility] Address: [address] [place] [address] Performed By: #### 1 988-5, 18471-5, 01901-0, 3040-3 ####VILLARREAL LABORATORYCLIA [id number] [place] [address] [place] Calcium [Mass/Vol] 9.3 mg/dL Normal 8.5-10.2 Comment on above: Order Comment: Speci men Type: BLOOD SPECIMENOrdering Facility: [facility] Address: [address] [place] [address] Performed By: #### 1 988-5, 34969-4, 88090-8, 3040-3 ####[facility] LABORATORYCLIA [id number] [place] [address] [place] Chloride [Moles/Vol] 98 mmol/L Normal 98-107 [facility] Comment on above: Order Comment: Speci men Type: BLOOD SPECIMENOrdering Facility: [facility] Address: [address] [place] [address] Performed By: #### 1 988-5, 33579-2, 36139-8, 3040-3 ####[facility]ORATORYCLIA [id number] [place] [address] [place] CO2 [Moles/Vol] 28 mmol/L Normal 22-30 Comment on above: Order Comment: Speci men Type: BLOOD SPECIMENOrdering Facility: [facility] Address: [address] [place] [address] Performed By: #### 1 988-5, 31790-9, 00603-2, 3040-3 ####[facility]ORATORYCLIA [id number] [place] [id number] [place] Creatinine [Mass/Vol] 0.76 mg/dL Normal 0.58-0.[address] [facility] Comment on above: Order Comment: Speci men Type: BLOOD SPECIMENOrdering Facility: [facility] Address: [address] [place] [address] Performed By: #### 1 988-5, 42586-9, 64739-0, 3040-3 ####[facility]ORATORYCLIA [id number] [place] [address] [place] [facility] [place] Creatinine and Glomerular filtration rate.predicted panel (S/P/Bld) 75 mL/min/1.73m??? Normal >=60 Comment on above: Order Comment: Speci men Type: BLOOD SPECIMENOrdering Facility: [facility] Address: [address] [place] [address] Result Comment: Hilda mated Glomerular Filtration Rate [...] actual GFR. Performed By: #### 1 988-5, 77325-1, 08057-9, 0-3 ####[facility]ORATORYCLIA [id number] [place] [address] [place] Glucose [Mass/Vol] 260 mg/dL High 74-99 Comment on above: Order Comment: Fan meade Type: BLOOD SPECIMENOrdering Facility: [facility] Address: [address] [address] [place] [id number] Result Comment: The [place] Diabetes Association (ADA) provides guidance for cutoff [...] Standards of Medical Care in Diabetes 2016, [employer]. Diabetes Care. 2016.39(Suppl 1). Performed By: #### 1 988-5, 97205-2, 64627-9, 0-3 ####[facility]ORATORYCLIA [id number] [place] [address] [place] Potassium [Moles/Vol] 4.5 mmol/L Normal 3.7-5.[address] [facility] Comment on above: Order Comment: Fan meade Type: BLOOD SPECIMENOrdering Facility: [facility] Address: [address] [place] [address] Performed By: #### 1 988-5, 68214-1, 71828-6, 0-3 ####[facility]ORATORYCLIA [id number] [place] [address] [place] Protein [Mass/Vol] 5.5 g/dL Low 6.3-8.0 Comment on above: Order Comment: Speci men Type: BLOOD SPECIMENOrdering Facility: [facility] Address: [address] [place] [address] Performed By: #### 1 988-5, 92588-4, 43748-8, 3040-3 ####[facility]ORATORYCLIA [id number] [place] [address] [place] Sodium [Moles/Vol] 135 mmol/L Low 136-144 Comment on above: Order Comment: Speci men Type: BLOOD SPECIMENOrdering Facility: [facility] Address: [address] [place] [address] Performed By: #### 1 988-5, 17718-2, 49005-9, 0-3 ####[facility]ORATORYCLIA [id number] [place] [address] [place] Urea nitrogen [Mass/Vol] 43 mg/dL High 7-21 Comment on above: Order Comment: Speci men Type: BLOOD SPECIMENOrdering Facility: [facility] Address: [address] [place] [address] Performed By: #### 1 988-5, 18634-5, 47221-2, 0-3 ####[facility]ATORYCLIA [id number] [place] [address] [place] ESR Westergren method (Bld) [Velocity]on 12-07-2024 ESR (Bld) [Velocity] 103 mm/h High 0-20 [facility] Comment on above: Order Comment: Speci men Type: BLOOD SPECIMENOrdering Facility: [facility] Address: [address] [place] [address] Performed By: #### 4 537-7 ####[facility] LABCLIA [id number] [place] [address] [id number] [place] Folate SerPl-mCncon 12-07-19 25 Folate [Mass/Vol] 7.7 ng/mL Normal >4.7 Comment on above: Order Comment: Speci men Type: BLOOD SPECIMENOrdering Facility: [facility] Address: [address] [place], [place] [address] [phone] Performed By: #### 2 284-8, 9 ####[facility]ORATORYCLIA [id number] [place] [address] [place] Lipase SerPl-cCncon 12-07-19 25 Lipase [Catalytic activity/Vol] 50 U/L Normal 16-61 Comment on above: Order Comment: Speci men Type: BLOOD SPECIMENOrdering Facility: [facility] Address: [address] [place] [address] [place] [phone] Performed By: #### 1 988-5, 98419-9, 64251-5, 0-3 ####[facility]ORATORYCLIA [id number] [place] [address] [place] Magnesium SerPl-mCncon 12-07 Magnesium [Mass/Vol] 1.7 mg/dL Normal 1.7-2.3 [facility] Comment on above: Order Comment: Speci men Type: BLOOD SPECIMENOrdering Facility: [facility] Address: [address] [place] [address] [place] [id number] Performed By: #### 1 988-5, 66779-1, 14183-5, 0-3 ####[facility]ORATORYCLIA [id number] [place] [address] [place] US DVT LOWER BILon 5 US DVT LOWER RADHA Normal Vit B12 SerPl-mCncon 025 Cobalamin (Vitamin B12) [Mass/Vol] 400 pg/mL Normal 232-1245 Comment on above: Order Comment: Speci men Type: BLOOD SPECIMENOrdering Facility: [facility] Address: [address] [place] [address] [place] [phone] Performed By: #### 2 284-8, 9 ####[facility]ORATORYCLIA [id number] [place] [address] [place] XR ABD 2V SUPINE W UPR/DECUB /CTLon 12-07-2024 XR ABD 2V SUPINE W UPR/DECUB/CTL Normal CASE MANAGEMon 12-06-2024 CASE MANAGEM Normal CBC W Auto Differential pane l (Bld)on 12-06-2024 Basophils (Bld) [#/Vol] 0.03 10*3/uL Normal <0.11 Comment on above: Order Comment: Speci men Type: BLOOD SPECIMENOrdering Facility: [facility] Address: [address] [place] [address] Performed By: #### 5 7021-8 ####[facility]ORATORYCLIA [id number] [place] [address] [place] Basophils/100 WBC (Bld) 0.2 % Normal [facility] Comment on above: Order Comment: Speci men Type: BLOOD SPECIMENOrdering Facility: [facility] Address: [address] [place] [address] Performed By: #### 5 7021-8 ####[facility] LABORATORYCLIA [id number] [place] [address] [place] Differential cell count method Nom (Bld) Auto Normal Comment on above: Order Comment: Speci men Type: BLOOD SPECIMENOrdering Facility: [facility] Address: [address] [place] [address] Performed By: #### 5 7021-8 ####[facility] LABORATORYCLIA [id number] [place] [address] [place] Eosinophils (Bld) [#/Vol] 0.09 10*3/uL Normal <0.46 Comment on above: Order Comment: Speci men Type: BLOOD SPECIMENOrdering Facility: [facility] Address: [address] [place] [address] Performed By: #### 5 7021-8 ####[facility]ORATORYCLIA [id number] [place] [address] [place] Eosinophils/100 WBC (Bld) 0.6 % Normal Comment on above: Order Comment: Speci men Type: BLOOD SPECIMENOrdering Facility: [facility] Address: [address] [place] [address] Performed By: #### 5 7021-8 ####[facility] LABORATORYCLIA [id number] [place] [address] [place] Erythrocyte distribution width (RBC) [Ratio] 15.9 % High 11.5-15.0 Comment on above: Order Comment: Speci men Type: BLOOD SPECIMENOrdering Facility: [facility] Address: [address] [place] [address] Performed By: #### 5 7021-8 ####[facility]ORATORYCLIA [id number] [place] [address] [place] Hematocrit (Bld) [Volume fraction] 25.5 % Low 36.0-46.0 Comment on above: Order Comment: Speci men Type: BLOOD SPECIMENOrdering Facility: [facility] Address: [address] [place] [address] Performed By: #### 5 7021-8 ####[facility] LABORATORYCLIA [id number] [place] [address] [place] Hemoglobin (Bld) [Mass/Vol] 8.3 g/dL Low 11.5-15.5 Comment on above: Order Comment: Speci men Type: BLOOD SPECIMENOrdering Facility: [facility] Address: [address] [place] [address] Performed By: #### 5 7021-8 ####[facility]ORATORYCLIA [id number] [place] [address] [place] Immature granulocytes (Bld) [#/Vol] 0.15 10*3/uL High <0.10 Comment on above: Order Comment: Speci men Type: BLOOD SPECIMENOrdering Facility: [facility] Address: [address] [place] [address] Performed By: #### 5 7021-8 ####[facility] LABORATORYCLIA [id number] [place] [address] [place] Immature granulocytes/100 WBC (Bld) 1.0 % Normal Comment on above: Order Comment: Speci men Type: BLOOD SPECIMENOrdering Facility: [facility] Address: [address] [place] [address] Performed By: #### 5 7021-8 ####[facility] LABORATORYCLIA [id number] [address] Lymphocytes (Bld) [#/Vol] 0.98 10*3/uL Low 1.00-4.00 Comment on above: Order Comment: Speci men Type: BLOOD SPECIMENOrdering Facility: [facility] Address: [address] [place] [address] Performed By: #### 5 7021-8 ####[facility] LABORATORYCLIA [id number] [address] Lymphocytes/100 WBC (Bld) 6.7 % Normal Comment on above: Order Comment: Speci men Type: BLOOD SPECIMENOrdering Facility: [facility] Address: [address] [place] [address] Performed By: #### 5 7021-8 ####[facility] LABORATORYCLIA [id number] [address] STATES [facility] MCH (RBC) [Entitic mass] 27.9 pg Normal 26.0-34.0 Comment on above: Order Comment: Speci men Type: BLOOD SPECIMENOrdering Facility: [facility] Address: [address] [place] [address] Performed By: #### 5 7021-8 ####[facility] LABORATORYCLIA [id number] [address] MCHC (RBC) [Mass/Vol] 32.5 g/dL Normal 30.5-36.[address] [facility] Comment on above: Order Comment: Speci men Type: BLOOD SPECIMENOrdering Facility: [facility] Address: [address] [place] [address] Performed By: #### 5 7021-8 ####[facility] LABORATORYCLIA [id number] [address] MCV (RBC) [Entitic vol] 85.9 fL Normal 80.0-100.0 [facility] Comment on above: Order Comment: Speci men Type: BLOOD SPECIMENOrdering Facility: [facility] Address: [address] [place] [address] Performed By: #### 5 7021-8 ####[facility] LABORATORYCLIA [id number] [place] [address] [place] Monocytes (Bld) [#/Vol] 0.94 10*3/uL High <0.87 Comment on above: Order Comment: Speci men Type: BLOOD SPECIMENOrdering Facility: [facility] Address: [address] [place] [address] Performed By: #### 5 7021-8 ####[facility] LABORATORYCLIA [id number] [place] [address] [place] Monocytes/100 WBC (Bld) 6.5 % Normal [facility] Comment on above: Order Comment: Speci men Type: BLOOD SPECIMENOrdering Facility: [facility] Address: [address] [place] [address] Performed By: #### 5 7021-8 ####[facility] LABORATORYCLIA [id number] [place] [address] [place] Neutrophils (Bld) [#/Vol] 12.37 10*3/uL High 1.45-7.50 Comment on above: Order Comment: Speci men Type: BLOOD SPECIMENOrdering Facility: [facility] Address: [address] [place] [address] Performed By: #### 5 7021-8 ####[facility] LABORATORYCLIA [id number] [address] [place] Neutrophils/100 WBC (Bld) 85.0 % Normal Comment on above: Order Comment: Speci men Type: BLOOD SPECIMENOrdering Facility: [facility] Address: [address] [place] [address] Performed By: #### 5 7021-8 ####[facility] LABORATORYCLIA [id number] [place] [address] [place] Nucleated RBC (Bld) [#/Vol] 10*3/uL Normal <0.01 Comment on above: Order Comment: Speci men Type: BLOOD SPECIMENOrdering Facility: [facility] Address: [address] [place] [address] Performed By: #### 5 7021-8 ####[facility] LABORATORYCLIA [id number] [place] [address] [place] Nucleated RBC/100 WBC (Bld) [Ratio] 0.0 /100 WBC Normal Comment on above: Order Comment: Speci men Type: BLOOD SPECIMENOrdering Facility: [facility] Address: [address] [place] [address] Performed By: #### 5 7021-8 ####[facility] LABORATORYCLIA [id number] [place] [address] [place] Platelet mean volume (Bld) [Entitic vol] 8.3 fL Low 9.0-12.7 Comment on above: Order Comment: Speci men Type: BLOOD SPECIMENOrdering Facility: [facility] Address: [address] [place] [address] Performed By: #### 5 7021-8 ####[facility] LABORATORYCLIA [id number] [address] [place] Platelets (Bld) [#/Vol] 602 10*3/uL High 150-400 Comment on above: Order Comment: Speci men Type: BLOOD SPECIMENOrdering Facility: [facility] Address: [address] [place] [address] Performed By: #### 5 7021-8 ####[facility] LABORATORYCLIA [id number] [place] [address] [place] RBC (Bld) [#/Vol] 2.97 10*6/uL Low 3.90-5.20 [facility] Comment on above: Order Comment: Speci men Type: BLOOD SPECIMENOrdering Facility: [facility] Address: [address] [place] [address] Performed By: #### 5 7021-8 ####[facility] LABORATORYCLIA [id number] [address] [place] WBC (Bld) [#/Vol] 14.56 10*3/uL High 3.70-11.00 [facility] Comment on above: Order Comment: Speci men Type: BLOOD SPECIMENOrdering Facility: [facility] Address: [address] [place] [phone] Performed By: #### 5 7021-8 ####[facility] LABORATORYCLIA [id number] [place] [address] [place] CONSULTon 12-06-2024 CONSULT Normal CONSULT Normal CONSULT PROGon 12-06-2024 CONSULT PROG Normal CONSULT PROG Normal Comprehensive metabolic 2000 panelon 12-06-2024 Albumin [Mass/Vol] 2.5 g/dL Low 3.9-4.9 Comment on above: Order Comment: Speci men Type: BLOOD SPECIMENOrdering Facility: [facility] Address: [facility] [address] Performed By: #### 2 951-2, , ####[facility] LABORATORYCLIA [id number] [place] [address] [place] ALP [Catalytic activity/Vol] 112 U/L Normal 34-123 Comment on above: Order Comment: Speci men Type: BLOOD SPECIMENOrdering Facility: [facility] Address: [facility] [place] [phone] Performed By: #### 2 951-2, , ####[facility] LABORATORYCLIA [id number] [place] [address] [place] ALT [Catalytic activity/Vol] U/L Low 7-38 Comment on above: Order Comment: Speci men Type: BLOOD SPECIMENOrdering Facility: [facility] Address: [address] [place] [phone] Performed By: #### 2 951-2, , ####[facility] LABORATORYCLIA [id number] [place] [id number] [place] Anion gap [Moles/Vol] 10 mmol/L Normal 8-[address] [facility] Comment on above: Order Comment: Speci men Type: BLOOD SPECIMENOrdering Facility: [facility] Address: [address] [place] [address] [place] [address] Performed By: #### 2 951-2, , ####[facility] LABORATORYCLIA [id number] [place] [address] [place] AST [Catalytic activity/Vol] 25 U/L Normal 13-35 Comment on above: Order Comment: Speci men Type: BLOOD SPECIMENOrdering Facility: [facility] Address: [address] [place] [address] Performed By: #### 2 951-2, , ####[facility] LABORATORYCLIA [id number] [place] [address] [place] Bilirubin [Mass/Vol] mg/dL Low 0.2-1.3 [facility] Comment on above: Order Comment: Speci men Type: BLOOD SPECIMENOrdering Facility: [facility] Address: [address] [place] [address] Performed By: #### 2 951-2, , ####[facility] LABORATORYCLIA [id number] [place] [address] [place] Calcium [Mass/Vol] 9.5 mg/dL Normal 8.5-10.2 Comment on above: Order Comment: Speci men Type: BLOOD SPECIMENOrdering Facility: [facility] Address: [address] [place] [address] Performed By: #### 2 951-2, , ####[facility] LABORATORYCLIA [id number] [place] [address] [place] Chloride [Moles/Vol] 97 mmol/L Low 98-107 [facility] Comment on above: Order Comment: Speci men Type: BLOOD SPECIMENOrdering Facility: [facility] Address: [address] [place] [address] Performed By: #### 2 951-2, , ####[facility] LABORATORYCLIA [id number] [place] [id number] [place] CO2 [Moles/Vol] 27 mmol/L Normal 22-30 Comment on above: Order Comment: Speci men Type: BLOOD SPECIMENOrdering Facility: [facility] Address: [address] [place] [id number] Performed By: #### 2 951-2, , ####[facility] LABORATORYCLIA [id number] [address] OF [facility] Creatinine [Mass/Vol] 0.95 mg/dL Normal 0.58-0.[address] [facility] Comment on above: Order Comment: Fan meade Type: BLOOD SPECIMENOrdering Facility: [facility] Address: [address] [place], [place] [address] Performed By: #### 2 951-2, , ####[facility] LABORATORYCLIA [id number] [address] Creatinine and Glomerular filtration rate.predicted panel (S/P/Bld) 58 mL/min/1.73m??? Low >=60 Comment on above: Order Comment: Fan meade Type: BLOOD SPECIMENOrdering Facility: [facility] Address: [address] [place] [address] Result Comment: Hilda mated Glomerular Filtration Rate [...] By: #### 2 951-2, , ####[facility] LABORATORYCLIA [id number] [place] [id number] [place] Glucose [Mass/Vol] 93 mg/dL Normal 74-99 Comment on above: Order Comment: Fan halina Type: BLOOD SPECIMENOrdering Facility: [facility] Address: [address] [place] [address] Result Comment: The [place] [employer] (ADA) provides guidance for cutoff [...] Standards of Medical Care in Diabetes 2016, [place]. Diabetes Care. 2016.39(Suppl 1). Performed By: #### 2 951-2, , ####[facility]ORATORYCLIA [id number] [place] [address] [place] Potassium [Moles/Vol] 3.8 mmol/L Normal 3.7-5.[address] [facility] Comment on above: Order Comment: Fan meade Type: BLOOD SPECIMENOrdering Facility: [facility] Address: [address] [place] [address] Performed By: #### 2 95-2, , ####[facility]ORATORYCLIA [id number] [place] [address] [place] Protein [Mass/Vol] 5.7 g/dL Low 6.3-8.0 Comment on above: Order Comment: Fan meade Type: BLOOD SPECIMENOrdering Facility: [facility] Address: [address] [place] [address] Performed By: #### 2 951-2, , ####[facility]ORATORYCLIA [id number] [place] [address] [place] Urea nitrogen [Mass/Vol] 45 mg/dL High 7-21 Comment on above: Order Comment: Fan meade Type: BLOOD SPECIMENOrdering Facility: [facility] Address: [address] [place] [address] Performed By: #### 2 951-2, , ####[facility] LABORATORYCLIA [id number] [place] [id number] [place] Magnesium SerPl-mCncon 12-06 Magnesium [Mass/Vol] 1.8 mg/dL Normal 1.7-2.3 [facility] Comment on above: Order Comment: Speci men Type: BLOOD SPECIMENOrdering Facility: [facility] Address: [address] [place], [place] [address] Performed By: #### 2 951-2, , ####[facility] LABORATORYCLIA [id number] [place] [address] [place] Sodium SerPl-sCncon 12-06-19 25 Sodium [Moles/Vol] 135 mmol/L Low 136-144 Comment on above: Order Comment: Speci men Type: BLOOD SPECIMENOrdering Facility: [facility] Address: [address] [place] [address] Performed By: #### 2 951-2 ####[facility] LABORATORYCLIA [id number] [place] [address] [place] Sodium [Moles/Vol] 132 mmol/L Low 136-144 Comment on above: Order Comment: Speci men Type: BLOOD SPECIMENOrdering Facility: [facility] Address: [address] [place] [address] Performed By: #### 2 951-2 ####[facility] LABORATORYCLIA [id number] [place] [address] [place] Sodium [Moles/Vol] 136 mmol/L Normal 136-144 Comment on above: Order Comment: Speci men Type: BLOOD SPECIMENOrdering Facility: [facility] Address: [address] [place] [address] Performed By: #### 2 951-2 ####[facility] LABORATORYCLIA [id number] [place] [address] [place] Sodium [Moles/Vol] 134 mmol/L Low 136-144 Comment on above: Order Comment: Speci men Type: BLOOD SPECIMENOrdering Facility: [facility] Address: [address] [place] [address] Performed By: #### 2 951-2, , ####[facility] LABORATORYCLIA [id number] [address] Sodium [Moles/Vol] 131 mmol/L Low 136-144 Comment on above: Order Comment: Speci men Type: BLOOD SPECIMENOrdering Facility: [facility] Address: [address] [place] [address] Performed By: #### 2 951-2 ####[facility] LABORATORYCLIA [id number] [place] [address] [place] [facility] [place] THERAPY NTon 12-06-2024 THERAPY NT Normal URINALYSIS, REFLEX MICROSCOP ICon 12-06-2024 Bilirubin Ql (U) Negative Normal Negative Comment on above: Order Comment: Speci men Type: URINE SPECIMENOrdering Facility: [facility] Address: [address] [place] [address] Performed By: #### L [id number] ####[facility] LABORATORYCLIA [id number] [address] Clarity (Unsp spec) Clear Normal Clear [facility] Comment on above: Order Comment: Speci men Type: URINE SPECIMENOrdering Facility: [facility] Address: [address] [place] [address] Performed By: #### L [id number] ####[facility] LABORATORYCLIA [id number] [address] Color (U) Yellow Normal Yellow Comment on above: Order Comment: Speci men Type: URINE SPECIMENOrdering Facility: [facility] Address: [address] [place] [address] Performed By: #### L [id number] ####[facility] LABORATORYCLIA [id number] [address] [place] Epithelial cells LM.HPF (Urine sed) [#/Area] Few Normal Comment on above: Order Comment: Speci men Type: URINE SPECIMENOrdering Facility: [facility] Address: [address] [place] [address] Performed By: #### L [id number] ####[facility] LABORATORYCLIA [id number] [address] [place] Glucose Test strip (U) [Mass/Vol] Negative Normal Negative Comment on above: Order Comment: Speci men Type: URINE SPECIMENOrdering Facility: [facility] Address: [facility] [place] [address] Performed By: #### L [id number] ####[facility] LABORATORYCLIA [id number] [address] Hemoglobin Ql (U) Negative Normal Negative Comment on above: Order Comment: Speci men Type: URINE SPECIMENOrdering Facility: [facility] Address: [address] [place] [address] Performed By: #### L [id number] ####[facility] LABORATORYCLIA [id number] [address] Ketones Ql (U) Negative Normal Negative Comment on above: Order Comment: Speci men Type: URINE SPECIMENOrdering Facility: [facility] Address: [address] [place] [address] Performed By: #### L [id number] ####[facility] LABORATORYCLIA [id number] [address] Leukocyte esterase Test strip Ql (U) 1+ Abnormal Negative Comment on above: Order Comment: Speci men Type: URINE SPECIMENOrdering Facility: [facility] Address: [address] [place] [address] Performed By: #### L [id number] ####[facility] LABORATORYCLIA [id number] [address] [place] Nitrite Ql (U) Negative Normal Negative Comment on above: Order Comment: Speci men Type: URINE SPECIMENOrdering Facility: [facility] Address: [address] [place] [address] Performed By: #### L [id number] ####[facility] LABORATORYCLIA [id number] [address] pH (U) 6.0 [pH] Normal 5.0-8.0 Comment on above: Order Comment: Speci men Type: URINE SPECIMENOrdering Facility: [facility] Address: [address] [place] [address] Performed By: #### L [id number] ####[facility] LABORATORYCLIA [id number] [address] Protein (U) [Mass/Vol] 1+ Abnormal Negative [facility] Comment on above: Order Comment: Speci men Type: URINE SPECIMENOrdering Facility: [facility] Address: [address] [place] [address] Performed By: #### L [id number] ####[facility] LABORATORYCLIA [id number] [address] [place] RBC LM.HPF (Urine sed) [#/Area] 0-3 /HPF Normal 0-3 /HPF Comment on above: Order Comment: Speci men Type: URINE SPECIMENOrdering Facility: [facility] Address: [address] [place] [address] Performed By: #### L [id number] ####[facility] LABORATORYCLIA [id number] [address] Specific gravity (U) [Rel density] 1.010 Normal 1.005-1.030 Comment on above: Order Comment: Speci men Type: URINE SPECIMENOrdering Facility: [facility] Address: [address] [place] [address] Performed By: #### L [id number] ####[facility] LABORATORYCLIA [id number] [address] Urobilinogen Ql (U) 0.2 EU/dL Normal 0.2-1.0 EU/dL Comment on above: Order Comment: Speci men Type: URINE SPECIMENOrdering Facility: [facility] Address: [address] [place] [address] Performed By: #### L [id number] ####[facility] LABORATORYCLIA [id number] [address] WBC LM.HPF (Urine sed) [#/Area] 0-5 /HPF Normal 0-5 /HPF Comment on above: Order Comment: Speci men Type: URINE SPECIMENOrdering Facility: [facility] Address: [address] [place] [address] Performed By: #### L [id number] ####VILLARREAL LABORATORYCLIA [id number] [place] [address] [place] Yeast.budding LM.HPF (Urine sed) [#/Area] Few Abnormal None Seen Comment on above: Order Comment: Speci men Type: URINE SPECIMENOrdering Facility: [facility] Address: [address] [place] [address] Performed By: #### L [id number] ####VILLARREAL LABORATORYCLIA [id number] [place] [address] [place] ALLIED HEALTHon 12-05-2024 ALLIED HEALTH Normal CASE MANAGEMon 12-05-2024 CASE MANAGEM [facility] W Auto Differential pane l (Bld)on 12-05-2024 Basophils (Bld) [#/Vol] 10*3/uL Normal <0.11 [facility] Comment on above: Order Comment: Speci men Type: BLOOD SPECIMENOrdering Facility: [facility] Address: [address] [place] [address] Performed By: #### 5 7021-8 ####VILLARREAL LABORATORYCLIA [id number] [address] [place] Basophils/100 WBC (Bld) 0.1 % Normal [facility] Comment on above: Order Comment: Speci men Type: BLOOD SPECIMENOrdering Facility: [facility] Address: [address] [place] [address] Performed By: #### 5 7021-8 ####VILLARREAL LABORATORYCLIA [id number] [place] [address] [place] Differential cell count method Nom (Bld) Auto Normal Comment on above: Order Comment: Speci men Type: BLOOD SPECIMENOrdering Facility: [facility] Address: [address] [place] [address] Performed By: #### 5 7021-8 ####VILLARREAL LABORATORYCLIA [id number] [place] [address] [place] Eosinophils (Bld) [#/Vol] 10*3/uL Normal <0.46 Comment on above: Order Comment: Speci men Type: BLOOD SPECIMENOrdering Facility: [facility] Address: [address] [place] [address] Performed By: #### 5 7021-8 ####VILLARREAL LABORATORYCLIA [id number] [address] Eosinophils/100 WBC (Bld) 0.0 % Normal Comment on above: Order Comment: Speci men Type: BLOOD SPECIMENOrdering Facility: [facility] Address: [address] [place] [address] Performed By: #### 5 7021-8 ####VILLARREAL LABORATORYCLIA [id number] [address] Erythrocyte distribution width (RBC) [Ratio] 15.8 % High 11.5-15.0 Comment on above: Order Comment: Speci men Type: BLOOD SPECIMENOrdering Facility: [facility] Address: [address] [place] [address] Performed By: #### 5 7021-8 ####VILLARREAL LABORATORYCLIA [id number] [address] Hematocrit (Bld) [Volume fraction] 26.3 % Low 36.0-46.0 Comment on above: Order Comment: Speci men Type: BLOOD SPECIMENOrdering Facility: [facility] Address: [address] [place] [address] Performed By: #### 5 7021-8 ####VILLARREAL LABORATORYCLIA [id number] [address] [place] Hemoglobin (Bld) [Mass/Vol] 8.5 g/dL Low 11.5-15.5 Comment on above: Order Comment: Speci men Type: BLOOD SPECIMENOrdering Facility: [facility] Address: [address] [place] [address] Performed By: #### 5 7021-8 ####VILLARREAL LABORATORYCLIA [id number] [address] [place] Immature granulocytes (Bld) [#/Vol] 0.11 10*3/uL High <0.10 Comment on above: Order Comment: Speci men Type: BLOOD SPECIMENOrdering Facility: [facility] Address: [address] [place] [address] Performed By: #### 5 7021-8 ####VILLARREAL LABORATORYCLIA [id number] [address] Immature granulocytes/100 WBC (Bld) 0.9 % Normal Comment on above: Order Comment: Speci men Type: BLOOD SPECIMENOrdering Facility: [facility] Address: [address] [place] [address] Performed By: #### 5 7021-8 ####VILLARREAL LABORATORYCLIA [id number] [address] Lymphocytes (Bld) [#/Vol] 0.46 10*3/uL Low 1.00-4.00 Comment on above: Order Comment: Speci men Type: BLOOD SPECIMENOrdering Facility: [facility] Address: [address] [place] [address] Performed By: #### 5 7021-8 ####VILLARREAL LABORATORYCLIA [id number] [address] Lymphocytes/100 WBC (Bld) 3.8 % Normal Comment on above: Order Comment: Speci men Type: BLOOD SPECIMENOrdering Facility: [facility] Address: [address] [place] [address] Performed By: #### 5 7021-8 ####VILLARREAL LABORATORYCLIA [id number] [address] MCH (RBC) [Entitic mass] 27.9 pg Normal 26.0-34.0 Comment on above: Order Comment: Speci men Type: BLOOD SPECIMENOrdering Facility: [facility] Address: [address] [place] [address] Performed By: #### 5 7021-8 ####VILLARREAL LABORATORYCLIA [id number] [address] MCHC (RBC) [Mass/Vol] 32.3 g/dL Normal 30.5-36.[address] [facility] Comment on above: Order Comment: Speci men Type: BLOOD SPECIMENOrdering Facility: [facility] Address: [address] [place] [address] Performed By: #### 5 7021-8 ####VILLARREAL LABORATORYCLIA [id number] [address] [place] MCV (RBC) [Entitic vol] 86.2 fL Normal 80.0-100.0 [facility] Comment on above: Order Comment: Speci men Type: BLOOD SPECIMENOrdering Facility: [facility] Address: [address] [place] [address] Performed By: #### 5 7021-8 ####VILLARREAL LABORATORYCLIA [id number] [address] [place] Monocytes (Bld) [#/Vol] 0.18 10*3/uL Normal <0.87 Comment on above: Order Comment: Speci men Type: BLOOD SPECIMENOrdering Facility: [facility] Address: [address] [place] [address] Performed By: #### 5 7021-8 ####VILLARREAL LABORATORYCLIA [id number] [address] Monocytes/100 WBC (Bld) 1.5 % Normal [facility] Comment on above: Order Comment: Speci men Type: BLOOD SPECIMENOrdering Facility: [facility] Address: [address] [place] [address] Performed By: #### 5 7021-8 ####VILLARREAL LABORATORYCLIA [id number] [place] [address] [place] Neutrophils (Bld) [#/Vol] 11.38 10*3/uL High 1.45-7.50 Comment on above: Order Comment: Speci men Type: BLOOD SPECIMENOrdering Facility: [facility] Address: [address] [place] [address] Performed By: #### 5 7021-8 ####VILLARREAL LABORATORYCLIA [id number] [place] [address] [place] Neutrophils/100 WBC (Bld) 93.7 % Normal Comment on above: Order Comment: Speci men Type: BLOOD SPECIMENOrdering Facility: [facility] Address: [address] [place] [address] Performed By: #### 5 7021-8 ####VILLARREAL LABORATORYCLIA [id number] [place] [address] [place] Nucleated RBC (Bld) [#/Vol] 10*3/uL Normal <0.01 Comment on above: Order Comment: Speci men Type: BLOOD SPECIMENOrdering Facility: [facility] Address: [address] [place] [address] Performed By: #### 5 7021-8 ####VILLARREAL LABORATORYCLIA [id number] [address] [place] Nucleated RBC/100 WBC (Bld) [Ratio] 0.0 /100 WBC Normal Comment on above: Order Comment: Speci men Type: BLOOD SPECIMENOrdering Facility: [facility] Address: [address] [place] [address] Performed By: #### 5 7021-8 ####VILLARREAL LABORATORYCLIA [id number] [place] [address] [place] Platelet mean volume (Bld) [Entitic vol] 8.8 fL Low 9.0-12.7 Comment on above: Order Comment: Speci men Type: BLOOD SPECIMENOrdering Facility: [facility] Address: [address] [place] [address] Performed By: #### 5 7021-8 ####VILLARREAL LABORATORYCLIA [id number] [place] [address] [place] Platelets (Bld) [#/Vol] 568 10*3/uL High 150-400 Comment on above: Order Comment: Speci men Type: BLOOD SPECIMENOrdering Facility: [facility] Address: [address] [place] [address] Performed By: #### 5 7021-8 ####VILLARREAL LABORATORYCLIA [id number] [address] [place] RBC (Bld) [#/Vol] 3.05 10*6/uL Low 3.90-5.20 [facility] Comment on above: Order Comment: Speci men Type: BLOOD SPECIMENOrdering Facility: [facility] Address: [address] [place] [address] Performed By: #### 5 7021-8 ####VILLARREAL LABORATORYCLIA [id number] [address] [place] WBC (Bld) [#/Vol] 12.14 10*3/uL High 3.70-11.00 [facility] Comment on above: Order Comment: Speci men Type: BLOOD SPECIMENOrdering Facility: [facility] Address: [address] [place] [address] Performed By: #### 5 7021-8 ####VILLARREAL LABORATORYCLIA [id number] [address] CBC panel Auto (Bld)on 12-05 Erythrocyte distribution width (RBC) [Ratio] 15.8 % High 11.5-15.0 Comment on above: Order Comment: Speci men Type: BLOOD SPECIMENOrdering Facility: [facility] Address: [address] [place] [address] Performed By: #### 5 8410-2 ####VILLARREAL LABORATORYCLIA [id number] [address] Hematocrit (Bld) [Volume fraction] 24.8 % Low 36.0-46.0 Comment on above: Order Comment: Speci men Type: BLOOD SPECIMENOrdering Facility: [facility] Address: [address] [place] [address] Performed By: #### 5 8410-2 ####VILLARREAL LABORATORYCLIA [id number] [address] Hemoglobin (Bld) [Mass/Vol] 8.2 g/dL Low 11.5-15.5 Comment on above: Order Comment: Speci men Type: BLOOD SPECIMENOrdering Facility: [facility] Address: [address] [place] [address] Performed By: #### 5 8410-2 ####VILLARREAL LABORATORYCLIA [id number] [address] MCH (RBC) [Entitic mass] 28.1 pg Normal 26.0-34.0 Comment on above: Order Comment: Speci men Type: BLOOD SPECIMENOrdering Facility: [facility] Address: [address] [place] [address] Performed By: #### 5 8410-2 ####VILLARREAL LABORATORYCLIA [id number] [address] MCHC (RBC) [Mass/Vol] 33.1 g/dL Normal 30.5-36.[address] [facility] Comment on above: Order Comment: Speci men Type: BLOOD SPECIMENOrdering Facility: [facility] Address: [address] [place] [address] Performed By: #### 5 8410-2 ####VILLARREAL LABORATORYCLIA [id number] [address] MCV (RBC) [Entitic vol] 84.9 fL Normal 80.0-100.0 [facility] Comment on above: Order Comment: Speci men Type: BLOOD SPECIMENOrdering Facility: [facility] Address: [address] [place] [address] Performed By: #### 5 8410-2 ####VILLARREAL LABORATORYCLIA [id number] [address] Nucleated RBC (Bld) [#/Vol] 10*3/uL Normal <0.01 Comment on above: Order Comment: Speci men Type: BLOOD SPECIMENOrdering Facility: [facility] Address: [address] [place] [address] Performed By: #### 5 8410-2 ####VILLARREAL LABORATORYCLIA [id number] [address] Platelet mean volume (Bld) [Entitic vol] 8.8 fL Low 9.0-12.7 Comment on above: Order Comment: Speci men Type: BLOOD SPECIMENOrdering Facility: [facility] Address: [address] [place] [address] Performed By: #### 5 8410-2 ####VILLARREAL LABORATORYCLIA [id number] [address] [place] Platelets (Bld) [#/Vol] 574 10*3/uL High 150-400 Comment on above: Order Comment: Speci men Type: BLOOD SPECIMENOrdering Facility: [facility] Address: [address] [place] [address] Performed By: #### 5 8410-2 ####LUM[facility] LABORATORYCLIA [id number] [place] [address] [place] RBC (Bld) [#/Vol] 2.92 10*6/uL Low 3.90-5.20 [facility] Comment on above: Order Comment: Speci men Type: BLOOD SPECIMENOrdering Facility: [facility] Address: [address] [place] [address] Performed By: #### 5 8410-2 ####LUM[facility]ERT[facility] LABORATORYCLIA [id number] [address] [place] WBC (Bld) [#/Vol] 13.26 10*3/uL High 3.70-11.00 [facility] Comment on above: Order Comment: Speci men Type: BLOOD SPECIMENOrdering Facility: [facility] Address: [address] [place] [address] Performed By: #### 5 8410-2 ####LUMBERT[facility] LABORATORYCLIA [id number] [address] [place] CONSULT PROGon 12-05-2024 CONSULT PROG Normal CONSULT PROG Normal CONSULT PROG Normal Comprehensive metabolic 2000 panelon 12-05-2024 Albumin [Mass/Vol] 2.5 g/dL Low 3.9-4.9 Comment on above: Order Comment: Speci men Type: BLOOD SPECIMENOrdering Facility: [facility] Address: [address] [place] [address] Performed By: #### 3 040-3, 53150-4 ####VILLARREAL LABORATORYCLIA [id number] [address] ALP [Catalytic activity/Vol] 117 U/L Normal 34-123 Comment on above: Order Comment: Speci men Type: BLOOD SPECIMENOrdering Facility: [facility] Address: [address] [place] [address] Performed By: #### 3 040-3, 57601-2 ####VILLARREAL LABORATORYCLIA [id number] [place] [address] [place] ALT [Catalytic activity/Vol] U/L Low 7-38 Comment on above: Order Comment: Speci men Type: BLOOD SPECIMENOrdering Facility: [facility] Address: [address] [place] [address] Performed By: #### 3 040-3, 04628-6 ####VILLARREAL LABORATORYCLIA [id number] [address] [place] Anion gap [Moles/Vol] 13 mmol/L Normal 8-[address] [facility] Comment on above: Order Comment: Speci men Type: BLOOD SPECIMENOrdering Facility: [facility] Address: [address] [place] [address] [place] [address] Performed By: #### 3 040-3, 28837-4 ####VILLARREAL LABORATORYCLIA [id number] [address] [facility] AST [Catalytic activity/Vol] 18 U/L Normal 13-35 Comment on above: Order Comment: Speci men Type: BLOOD SPECIMENOrdering Facility: [facility] Address: [address] [place] [address] Performed By: #### 3 040-3, 72163-8 ####VILLARREAL LABORATORYCLIA [id number] [address] [place] Bilirubin [Mass/Vol] mg/dL Low 0.2-1.3 [facility] Comment on above: Order Comment: Speci men Type: BLOOD SPECIMENOrdering Facility: [facility] Address: [address] [place] [address] Performed By: #### 3 040-3, ####VILLARREAL LABORATORYCLIA [id number] [place] [address] [place] Calcium [Mass/Vol] 9.5 mg/dL Normal 8.5-10.2 Comment on above: Order Comment: Speci men Type: BLOOD SPECIMENOrdering Facility: [facility] Address: [address] [place] [address] Performed By: #### 3 040-3, ####VILLARREAL LABORATORYCLIA [id number] [place] [address] [place] Chloride [Moles/Vol] 92 mmol/L Low 98-107 [facility] Comment on above: Order Comment: Speci men Type: BLOOD SPECIMENOrdering Facility: [facility] Address: [address] [place] [address] Performed By: #### 3 040-3, ####VILLARREAL LABORATORYCLIA [id number] [place] [address] [place] CO2 [Moles/Vol] 24 mmol/L Normal 22-30 Comment on above: Order Comment: Speci men Type: BLOOD SPECIMENOrdering Facility: [facility] Address: [address] [place] [address] Performed By: #### 3 040-3, ####VILLARREAL LABORATORYCLIA [id number] [place] [address] [place] Creatinine [Mass/Vol] 1.04 mg/dL High 0.58-0.[address] [facility] Comment on above: Order Comment: Speci men Type: BLOOD SPECIMENOrdering Facility: [facility] Address: [address] [place] [address] Performed By: #### 3 040-3, 33632-9 ####VILLARREAL LABORATORYCLIA [id number] [address] Creatinine and Glomerular filtration rate.predicted panel (S/P/Bld) 52 mL/min/1.73m??? Low >=60 Comment on above: Order Comment: Speci men Type: BLOOD SPECIMENOrdering Facility: [facility] Address: [address] [place] [address] Result Comment: Hilda mated Glomerular Filtration Rate [...] actual GFR. Performed By: #### 3 040-3, 10463-8 ####LUMBERTON LABORATORYCLIA [id number] [place] [address] [place] Glucose [Mass/Vol] 279 mg/dL High 74-99 Comment on above: Order Comment: Fan meade Type: BLOOD SPECIMENOrdering Facility: [facility] Address: [address] [place] [address] Result Comment: The [place] [employer] (ADA) provides guidance for cutoff [...] Standards of Medical Care in Diabetes 2016, [place]. Diabetes Care. 2016.39(Suppl 1). Performed By: #### 3 040-3, 47742-8 ####LUMBERTON LABORATORYCLIA [id number] [place] [id number] [place] Potassium [Moles/Vol] 4.4 mmol/L Normal 3.7-5.[address] [facility] Comment on above: Order Comment: Fan meade Type: BLOOD SPECIMENOrdering Facility: [facility] Address: [address] [place] [id number] Performed By: #### 3 040-3, 31599-8 ####VILLARREAL LABORATORYCLIA [id number] [place] [address] [place] Protein [Mass/Vol] 5.8 g/dL Low 6.3-8.0 Comment on above: Order Comment: Speci men Type: BLOOD SPECIMENOrdering Facility: [facility] Address: [address] [place] [address] Performed By: #### 3 040-3, 17038-2 ####VILLARREAL LABORATORYCLIA [id number] [place] [address] [place] Sodium [Moles/Vol] 129 mmol/L Low 136-144 Comment on above: Order Comment: Speci men Type: BLOOD SPECIMENOrdering Facility: [facility] Address: [address] [place] [address] Performed By: #### 3 040-3, 80063-3 ####VILLARREAL LABORATORYCLIA [id number] [place] [address] [place] Urea nitrogen [Mass/Vol] 49 mg/dL High 7-21 Comment on above: Order Comment: Speci men Type: BLOOD SPECIMENOrdering Facility: [facility] Address: [address] [place] [address] Performed By: #### 3 040-3, 73129-0 ####VILLARREAL LABORATORYCLIA [id number] [place] [address] [place] Albumin [Mass/Vol] 2.5 g/dL Low 3.9-4.9 Comment on above: Order Comment: Speci men Type: BLOOD SPECIMENOrdering Facility: [facility] Address: [address] [place] [address] Performed By: #### 2 951-2, 66361-7, 62881-2 ####VILLARREAL LABORATORYCLIA [id number] [place] [id number] [place] ALP [Catalytic activity/Vol] 122 U/L Normal 34-123 Comment on above: Order Comment: Speci men Type: BLOOD SPECIMENOrdering Facility: [facility] Address: [address] [place] [address] Performed By: #### 2 951-2, , ####VILLARREAL LABORATORYCLIA [id number] [place] [address] [place] ALT [Catalytic activity/Vol] U/L Low 7-38 Comment on above: Order Comment: Speci men Type: BLOOD SPECIMENOrdering Facility: [facility] Address: [address] [place] [address] Performed By: #### 2 951-2, , ####VILLARREAL LABORATORYCLIA [id number] [place] [address] [place] Anion gap [Moles/Vol] 11 mmol/L Normal 8-[address] [facility] Comment on above: Order Comment: Speci men Type: BLOOD SPECIMENOrdering Facility: [facility] Address: [address] [place] [address] Performed By: #### 2 951-2, , ####VILLARREAL LABORATORYCLIA [id number] [address] AST [Catalytic activity/Vol] 21 U/L Normal 13-35 Comment on above: Order Comment: Speci men Type: BLOOD SPECIMENOrdering Facility: [facility] Address: [address] [place] [address] Performed By: #### 2 951-2, , ####VILLARREAL LABORATORYCLIA [id number] [place] [address] [place] Bilirubin [Mass/Vol] mg/dL Low 0.2-1.3 [facility] Comment on above: Order Comment: Speci men Type: BLOOD SPECIMENOrdering Facility: [facility] Address: [address] [place] [address] Performed By: #### 2 951-2, , ####VILLARREAL LABORATORYCLIA [id number] [place] [address] [place] Calcium [Mass/Vol] 9.8 mg/dL Normal 8.5-10.2 Comment on above: Order Comment: Speci men Type: BLOOD SPECIMENOrdering Facility: [facility] Address: [address] [place], [place] [address] Performed By: #### 2 951-2, 34703-1, ####VILLARREAL LABORATORYCLIA [id number] [place] [address] [place] Chloride [Moles/Vol] 94 mmol/L Low 98-107 [facility] Comment on above: Order Comment: Speci men Type: BLOOD SPECIMENOrdering Facility: [facility] Address: [address] [place] [address] Performed By: #### 2 951-2, 40395-3, ####VILLARREAL LABORATORYCLIA [id number] [place] [address] [place] CO2 [Moles/Vol] 26 mmol/L Normal 22-30 Comment on above: Order Comment: Speci men Type: BLOOD SPECIMENOrdering Facility: [facility] Address: [address] [place] [address] Performed By: #### 2 951-2, , ####VILLARREAL LABORATORYCLIA [id number] [place] [address] [place] Creatinine [Mass/Vol] 0.89 mg/dL Normal 0.58-0.[address] [facility] Comment on above: Order Comment: Speci men Type: BLOOD SPECIMENOrdering Facility: [facility] Address: [address] [place] [address] Performed By: #### 2 951-2, , ####VILLARREAL LABORATORYCLIA [id number] [address] Creatinine and Glomerular filtration rate.predicted panel (S/P/Bld) 62 mL/min/1.73m??? Normal >=60 Comment on above: Order Comment: Speci men Type: BLOOD SPECIMENOrdering Facility: [facility] Address: [address] [place] [address] Result Comment: Hilda mated Glomerular Filtration Rate [...] GFR. Performed By: #### 2 951-2, , ####L[facility]ERT[facility] LABORATORYCLIA [id number] [place] [address] [place] Glucose [Mass/Vol] 238 mg/dL High 74-99 Comment on above: Order Comment: Fan meade Type: BLOOD SPECIMENOrdering Facility: [facility] Address: [address] [place] [address] Result Comment: The [place] Diabetes [employer] (ADA) provides guidance for cutoff [...] Standards of Medical Care in Diabetes 2016, [place]. Diabetes Care. 2016.39(Suppl 1). Performed By: #### 2 951-2, , ####[facility]ERT[facility] LABORATORYCLIA [id number] [place] [address] [place] Potassium [Moles/Vol] 5.2 mmol/L High 3.7-5.[address] [facility] Comment on above: Order Comment: Fan meade Type: BLOOD SPECIMENOrdering Facility: [facility] Address: [address] [place] [address] Performed By: #### 2 951-2, , ####[facility]ATORYCLIA [id number] [place] [address] [place] Protein [Mass/Vol] 6.1 g/dL Low 6.3-8.0 Comment on above: Order Comment: Speci men Type: BLOOD SPECIMENOrdering Facility: [facility] Address: [address] [place] [address] Performed By: #### 2 951-2, 40496-3, ####[facility]ORYCLIA [id number] [place] [address] [place] Urea nitrogen [Mass/Vol] 41 mg/dL High 7-21 Comment on above: Order Comment: Speci men Type: BLOOD SPECIMENOrdering Facility: [facility] Address: [address] [place] [address] Performed By: #### 2 951-2, 63301-8, ####[facility]ORYCLIA [id number] [place] [address] [place] ECG COMPLETEon 12-05-2024 ECG COMPLETE Normal Lipase SerPl-cCncon 12-05-19 25 Lipase [Catalytic activity/Vol] 31 U/L Normal 16-61 Comment on above: Order Comment: Speci men Type: BLOOD SPECIMENOrdering Facility: [facility] Address: [address] [place] [address] Performed By: #### 3 040-3, ####[facility]ORYCLIA [id number] [place] [address] [place] Magnesium SerPl-mCncon 12-05 Magnesium [Mass/Vol] 2.0 mg/dL Normal 1.7-2.3 [facility] Comment on above: Order Comment: Speci men Type: BLOOD SPECIMENOrdering Facility: [facility] Address: [address] [place] [address] Performed By: #### 2 951-2, 92614-1, ####[facility]ORYCLIA [id number] [place] [address] [place] SEPSIS LACTATEon 12-05-2024 Lactate [Moles/Vol] 1.5 mmol/L Normal 0.5-2.0 [facility] Comment on above: Order Comment: Speci men Type: BLOOD SPECIMENOrdering Facility: [facility] Address: [address] [place] [address] Performed By: #### S LACT ####[facility] LABORATORYCLIA [id number] [place] [address] [place] Sodium SerPl-sCncon 12-05-19 25 Sodium [Moles/Vol] 127 mmol/L Low 136-144 Comment on above: Order Comment: Speci men Type: BLOOD SPECIMENOrdering Facility: [facility] Address: [address] [place] [address] Performed By: #### 2 951-2 ####[facility] LABORATORYCLIA [id number] [place] [address] [place] Sodium [Moles/Vol] 129 mmol/L Low 136-144 Comment on above: Order Comment: Speci men Type: BLOOD SPECIMENOrdering Facility: [facility] Address: [address] [place] [address] Performed By: #### 2 951-2 ####[facility] LABORATORYCLIA [id number] [place] [address] [place] Sodium [Moles/Vol] 131 mmol/L Low 136-144 Comment on above: Order Comment: Speci men Type: BLOOD SPECIMENOrdering Facility: [facility] Address: [address] [place] [address] Performed By: #### 2 951-2, 81991-6, 76881-7 ####[facility] LABORATORYCLIA [id number] [place] [address] [place] THERAPY NTon 12-05-2024 THERAPY NT [facility] XR ABDOMEN 1V SUPINEon 12-05 XR ABDOMEN 1V SUPINE Normal [facility] CASE MANAGEMon 12-04-2024 CASE MANAGEM [facility] CBC W Auto Differential pane l (Bld)on 12-04-2024 Basophils (Bld) [#/Vol] 0.05 10*3/uL Normal <0.11 Comment on above: Order Comment: Speci men Type: BLOOD SPECIMENOrdering Facility: [facility] Address: [address] [place] [address] Performed By: #### 5 7021-8 ####V[facility] LABORATORYCLIA [id number] [place] [address] [place] Basophils/100 WBC (Bld) 0.2 % Normal [facility] Comment on above: Order Comment: Speci men Type: BLOOD SPECIMENOrdering Facility: [facility] Address: [address] [place] [address] Performed By: #### 5 7021-8 ####[facility] LABORATORYCLIA [id number] [place] [address] [place] Differential cell count method Nom (Bld) Auto Normal Comment on above: Order Comment: Speci men Type: BLOOD SPECIMENOrdering Facility: [facility] Address: [address] [place] [address] Performed By: #### 5 7021-8 ####[facility] LABORATORYCLIA [id number] [place] [address] [place] Eosinophils (Bld) [#/Vol] 10*3/uL Normal <0.46 Comment on above: Order Comment: Speci men Type: BLOOD SPECIMENOrdering Facility: [facility] Address: [address] [place] [address] Performed By: #### 5 7021-8 ####VILLAR[facility]AL LABORATORYCLIA [id number] [address] [place] Eosinophils/100 WBC (Bld) 0.1 % Normal Comment on above: Order Comment: Speci men Type: BLOOD SPECIMENOrdering Facility: [facility] Address: [address] [place] [address] Performed By: #### 5 7021-8 ####[facility] LABORATORYCLIA [id number] [place] [address] [place] Erythrocyte distribution width (RBC) [Ratio] 15.8 % High 11.5-15.0 Comment on above: Order Comment: Speci men Type: BLOOD SPECIMENOrdering Facility: [facility] Address: [address] [place] [address] Performed By: #### 5 7021-8 ####[facility] LABORATORYCLIA [id number] [address] [place] Hematocrit (Bld) [Volume fraction] 25.9 % Low 36.0-46.0 Comment on above: Order Comment: Speci men Type: BLOOD SPECIMENOrdering Facility: [facility] Address: [address] [place] [address] Performed By: #### 5 7021-8 ####VILL[facility] LABORATORYCLIA [id number] [place] [address] [place] Hemoglobin (Bld) [Mass/Vol] 8.5 g/dL Low 11.5-15.5 Comment on above: Order Comment: Speci men Type: BLOOD SPECIMENOrdering Facility: [facility] Address: [address] [place] [address] Performed By: #### 5 7021-8 ####[facility] LABORATORYCLIA [id number] [place] [address] [place] Immature granulocytes (Bld) [#/Vol] 0.27 10*3/uL High <0.10 Comment on above: Order Comment: Speci men Type: BLOOD SPECIMENOrdering Facility: [facility] Address: [address] [place] [address] Performed By: #### 5 7021-8 ####V[facility] LABORATORYCLIA [id number] [address] [place] Immature granulocytes/100 WBC (Bld) 1.3 % Normal Comment on above: Order Comment: Speci men Type: BLOOD SPECIMENOrdering Facility: [facility] Address: [address] [place] [address] Performed By: #### 5 7021-8 ####[facility]ILL[facility] LABORATORYCLIA [id number] [place] [address] [place] Lymphocytes (Bld) [#/Vol] 0.64 10*3/uL Low 1.00-4.00 Comment on above: Order Comment: Speci men Type: BLOOD SPECIMENOrdering Facility: [facility] Address: [address] [place] [address] Performed By: #### 5 7021-8 ####[facility] LABORATORYCLIA [id number] [address] [place] Lymphocytes/100 WBC (Bld) 3.1 % Normal Comment on above: Order Comment: Speci men Type: BLOOD SPECIMENOrdering Facility: [facility] Address: [address] [place] [address] Performed By: #### 5 7021-8 ####[facility] LABORATORYCLIA [id number] [address] MCH (RBC) [Entitic mass] 28.1 pg Normal 26.0-34.0 Comment on above: Order Comment: Speci men Type: BLOOD SPECIMENOrdering Facility: [facility] Address: [address] [place] [address] Performed By: #### 5 7021-8 ####[facility] LABORATORYCLIA [id number] [address] [place] MCHC (RBC) [Mass/Vol] 32.8 g/dL Normal 30.5-36.[address] [facility] Comment on above: Order Comment: Speci men Type: BLOOD SPECIMENOrdering Facility: [facility] Address: [address] [place] [address] Performed By: #### 5 7021-8 ####[facility] LABORATORYCLIA [id number] [address] MCV (RBC) [Entitic vol] 85.8 fL Normal 80.0-100.0 [facility] Comment on above: Order Comment: Speci men Type: BLOOD SPECIMENOrdering Facility: [facility] Address: [address] [place] [address] Performed By: #### 5 7021-8 ####VILL[facility] LABORATORYCLIA [id number] [address] Monocytes (Bld) [#/Vol] 1.09 10*3/uL High <0.87 Comment on above: Order Comment: Speci men Type: BLOOD SPECIMENOrdering Facility: [facility] Address: [address] [place] [address] Performed By: #### 5 7021-8 ####VILL[facility] LABORATORYCLIA [id number] [place] [address] [place] Monocytes/100 WBC (Bld) 5.3 % Normal [facility] Comment on above: Order Comment: Speci men Type: BLOOD SPECIMENOrdering Facility: [facility] Address: [address] [place] [address] Performed By: #### 5 7021-8 ####[facility] LABORATORYCLIA [id number] [place] [address] [place] Neutrophils (Bld) [#/Vol] 18.59 10*3/uL High 1.45-7.50 Comment on above: Order Comment: Speci men Type: BLOOD SPECIMENOrdering Facility: [facility] Address: [address] [place] [address] Performed By: #### 5 7021-8 ####[facility] LABORATORYCLIA [id number] [place] [address] [place] Neutrophils/100 WBC (Bld) 90.0 % Normal Comment on above: Order Comment: Speci men Type: BLOOD SPECIMENOrdering Facility: [facility] Address: [address] [place] [address] Performed By: #### 5 7021-8 ####[facility] LABORATORYCLIA [id number] [place] [address] [place] Nucleated RBC (Bld) [#/Vol] 10*3/uL Normal <0.01 Comment on above: Order Comment: Speci men Type: BLOOD SPECIMENOrdering Facility: [facility] Address: [address] [place] [address] Performed By: #### 5 7021-8 ####[facility] LABORATORYCLIA [id number] [place] [address] [place] Nucleated RBC/100 WBC (Bld) [Ratio] 0.0 /100 WBC Normal Comment on above: Order Comment: Speci men Type: BLOOD SPECIMENOrdering Facility: [facility] Address: [address] [place] [address] Performed By: #### 5 7021-8 ####[facility] LABORATORYCLIA [id number] [address] [place] Platelet mean volume (Bld) [Entitic vol] 8.7 fL Low 9.0-12.7 Comment on above: Order Comment: Speci men Type: BLOOD SPECIMENOrdering Facility: [facility] Address: [address] [place] [address] Performed By: #### 5 7021-8 ####[facility] LABORATORYCLIA [id number] [address] Platelets (Bld) [#/Vol] 518 10*3/uL High 150-400 Comment on above: Order Comment: Speci men Type: BLOOD SPECIMENOrdering Facility: [facility] Address: [address] [place] [address] Performed By: #### 5 7021-8 ####[facility] LABORATORYCLIA [id number] [address] STATES [facility] RBC (Bld) [#/Vol] 3.02 10*6/uL Low 3.90-5.20 [facility] Comment on above: Order Comment: Speci men Type: BLOOD SPECIMENOrdering Facility: [facility] Address: [address] [place] [address] Performed By: #### 5 7021-8 ####[facility] LABORATORYCLIA [id number] [address] [place] WBC (Bld) [#/Vol] 20.66 10*3/uL High 3.70-11.00 [facility] Comment on above: Order Comment: Speci men Type: BLOOD SPECIMENOrdering Facility: [facility] Address: [address] [place] [address] Performed By: #### 5 7021-8 ####[facility] LABORATORYCLIA [id number] [address] CBC W Ordered Manual Differe ntial panel (Bld)on 12-04-2024 Basophils (Bld) [#/Vol] 0.03 10*3/uL Normal <0.11 Comment on above: Order Comment: Speci men Type: BLOOD SPECIMENOrdering Facility: [facility] Address: [address] [place] [address] Performed By: #### S TFREV ####[facility] LABCLIA [id number] [place] [address] [place]#### 20278-0 ####[facility] LABORATORYCLIA [id number] [place] [address] [place] Basophils/100 WBC (Bld) 0.2 % Normal [facility] Comment on above: Order Comment: Speci men Type: BLOOD SPECIMENOrdering Facility: [facility] Address: [address] [place] [address] Performed By: #### S TFREV ####[facility] LABCLIA [id number] [place] [address] [place]#### 45121-4 ####[facility] LABORATORYCLIA [id number] [place] [address] [place] Differential cell count method Nom (Bld) Auto Normal Comment on above: Order Comment: Speci men Type: BLOOD SPECIMENOrdering Facility: [facility] Address: [address] [place] [address] Performed By: #### S TFREV ####[facility] LABCLIA [id number] [place] [address] [place]#### 14921-8 ####[facility] LABORATORYCLIA [id number] [place] [address] [place] Eosinophils (Bld) [#/Vol] 10*3/uL Normal <0.46 Comment on above: Order Comment: Speci men Type: BLOOD SPECIMENOrdering Facility: [facility] Address: [address] [place] [address] Performed By: #### S TFREV ####[facility] LABCLIA [id number] [address] [place]#### 81236-1 ####[facility] LABORATORYCLIA [id number] [address] [place] Eosinophils/100 WBC (Bld) 0.1 % Normal Comment on above: Order Comment: Speci men Type: BLOOD SPECIMENOrdering Facility: [facility] Address: [address] [place] [address] Performed By: #### S TFREV ####[facility] LABCLIA [id number] [address] [place]#### 34164-9 ####[facility] LABORATORYCLIA [id number] [address] [place] [facility] Erythrocyte distribution width (RBC) [Ratio] 15.9 % High 11.5-15.0 Comment on above: Order Comment: Speci men Type: BLOOD SPECIMENOrdering Facility: [facility] Address: [address] [place] [address] Performed By: #### S TFREV ####[facility] LABCLIA [id number] [address] [place]#### 19114-6 ####[facility] LABORATORYCLIA [id number] [address] [place] Hematocrit (Bld) [Volume fraction] 26.2 % Low 36.0-46.0 Comment on above: Order Comment: Speci men Type: BLOOD SPECIMENOrdering Facility: [facility] Address: [address] [place] [address] Performed By: #### S TFREV ####[facility] LABCLIA [id number] [address] [place]#### 09333-2 ####[facility] LABORATORYCLIA [id number] [address] [place] Hemoglobin (Bld) [Mass/Vol] 8.7 g/dL Low 11.5-15.5 Comment on above: Order Comment: Speci men Type: BLOOD SPECIMENOrdering Facility: [facility] Address: [address] [place] [address] Performed By: #### S TFREV ####[facility] LABCLIA [id number] [place] [address] [place]#### 10425-9 ####[facility] LABORATORYCLIA [id number] [place] [address] [place] Immature granulocytes (Bld) [#/Vol] 0.20 10*3/uL High <0.10 Comment on above: Order Comment: Speci men Type: BLOOD SPECIMENOrdering Facility: [facility] Address: [address] [place] [address] Performed By: #### S TFREV ####[facility] LABCLIA [id number] [place] [address] [place]#### 57510-0 ####[facility] LABORATORYCLIA [id number] [place] [address] [place] Immature granulocytes/100 WBC (Bld) 1.3 % Normal Comment on above: Order Comment: Speci men Type: BLOOD SPECIMENOrdering Facility: [facility] Address: [address] [place] [address] Performed By: #### S TFREV ####[facility] LABCLIA [id number] [place] [address] [place]#### 40961-8 ####[facility] LABORATORYCLIA [id number] [place] [address] [place] Lymphocytes (Bld) [#/Vol] 0.56 10*3/uL Low 1.00-4.00 Comment on above: Order Comment: Speci men Type: BLOOD SPECIMENOrdering Facility: [facility] Address: [address] [place] [address] Performed By: #### S TFREV ####[facility] LABCLIA [id number] [place] [address] [place]#### 19901-1 ####[facility] LABORATORYCLIA [id number] [address] Lymphocytes/100 WBC (Bld) 3.5 % Normal Comment on above: Order Comment: Speci men Type: BLOOD SPECIMENOrdering Facility: [facility] Address: [address] [place] [address] Performed By: #### S TFREV ####[facility] LABCLIA [id number] [address] [place]#### 20734-6 ####[facility] LABORATORYCLIA [id number] [address] [place] MCH (RBC) [Entitic mass] 28.3 pg Normal 26.0-34.0 Comment on above: Order Comment: Speci men Type: BLOOD SPECIMENOrdering Facility: [facility] Address: [address] [place] [address] Performed By: #### S TFREV ####[facility] LABCLIA [id number] [address] [place]#### 07977-3 ####[facility] LABORATORYCLIA [id number] [address] [place] MCHC (RBC) [Mass/Vol] 33.2 g/dL Normal 30.5-36.[address] [facility] Comment on above: Order Comment: Speci men Type: BLOOD SPECIMENOrdering Facility: [facility] Address: [address] [place] [address] Performed By: #### S TFREV ####[facility] LABCLIA [id number] [address] [place]#### 02076-1 ####[facility] LABORATORYCLIA [id number] [address] [place] MCV (RBC) [Entitic vol] 85.3 fL Normal 80.0-100.0 [facility] Comment on above: Order Comment: Speci men Type: BLOOD SPECIMENOrdering Facility: [facility] Address: [address] [place] [address] Performed By: #### S TFREV ####[facility] LABCLIA [id number] [place] [address] [place]#### 47230-8 ####[facility] LABORATORYCLIA [id number] [address] [place] Monocytes (Bld) [#/Vol] 0.74 10*3/uL Normal <0.87 Comment on above: Order Comment: Speci men Type: BLOOD SPECIMENOrdering Facility: [facility] Address: [address] [place] [address] Performed By: #### S TFREV ####[facility] LABCLIA [id number] [address] [place]#### 89280-4 ####[facility] LABORATORYCLIA [id number] [address] [place] Monocytes/100 WBC (Bld) 4.6 % Normal [facility] Comment on above: Order Comment: Speci men Type: BLOOD SPECIMENOrdering Facility: [facility] Address: [address] [place] [address] Performed By: #### S TFREV ####[facility] LABCLIA [id number] [place] [address] [place] [facility] [place]#### 78435-6 ####[facility] LABORATORYCLIA [id number] [place] [address] [place] Neutrophils (Bld) [#/Vol] 14.38 10*3/uL High 1.45-7.50 Comment on above: Order Comment: Speci men Type: BLOOD SPECIMENOrdering Facility: [facility] Address: [address] [place] [address] Performed By: #### S TFREV ####[facility] LABCLIA [id number] [place] [address] [place]#### 18682-9 ####[facility] LABORATORYCLIA [id number] [address] STATES [facility] Neutrophils/100 WBC (Bld) 90.3 % Normal Comment on above: Order Comment: Speci men Type: BLOOD SPECIMENOrdering Facility: [facility] Address: [address] [place] [address] Performed By: #### S TFREV ####[facility] LABCLIA [id number] [place] [address] [place]#### 54600-8 ####[facility] LABORATORYCLIA [id number] [place] [address] [place] Nucleated RBC (Bld) [#/Vol] 10*3/uL Normal <0.01 Comment on above: Order Comment: Speci men Type: BLOOD SPECIMENOrdering Facility: [facility] Address: [address] [place] [address] Performed By: #### S TFREV ####[facility] LABCLIA [id number] [place] [address] [place]#### 29233-0 ####[facility] LABORATORYCLIA [id number] [address] [place] Nucleated RBC/100 WBC (Bld) [Ratio] 0.0 /100 WBC Normal Comment on above: Order Comment: Speci men Type: BLOOD SPECIMENOrdering Facility: [facility] Address: [facility] [place] [address] Performed By: #### S TFREV ####[facility] LABCLIA [id number] [place] [address] [place]#### 46151-9 ####[facility] LABORATORYCLIA [id number] [place] [address] [place] Platelet mean volume (Bld) [Entitic vol] 8.8 fL Low 9.0-12.7 Comment on above: Order Comment: Speci men Type: BLOOD SPECIMENOrdering Facility: [facility] Address: [address] [place] [address] Performed By: #### S TFREV ####[facility] LABCLIA [id number] [place] [address] [place]#### 83331-3 ####[facility] LABORATORYCLIA [id number] [place] [address] [place] Platelets (Bld) [#/Vol] 512 10*3/uL High 150-400 Comment on above: Order Comment: Speci men Type: BLOOD SPECIMENOrdering Facility: [facility] Address: [address] [place] [address] Performed By: #### S TFREV ####[facility] LABCLIA [id number] [place] [address] [place]#### 97414-9 ####[facility] LABORATORYCLIA [id number] [place] [address] [place] RBC (Bld) [#/Vol] 3.07 10*6/uL Low 3.90-5.20 [facility] Comment on above: Order Comment: Speci men Type: BLOOD SPECIMENOrdering Facility: [facility] Address: [address] [place] [address] Performed By: #### S TFREV ####[facility] LABCLIA [id number] [place] [address] [place]#### 42959-1 ####[facility] LABORATORYCLIA [id number] [place] [address] [place] WBC (Bld) [#/Vol] 15.92 10*3/uL High 3.70-11.00 [facility] Comment on above: Order Comment: Speci men Type: BLOOD SPECIMENOrdering Facility: [facility] Address: [address] [place] [address] Performed By: #### S TFREV ####[facility] LABCLIA [id number] [address] [place] [id number] [place]#### 96239-2 ####V[facility] LABORATORYCLIA [id number] [place] [address] [place] CONSULTon 12-04-2024 CONSULT Normal CONSULT PROGon 12-04-2024 CONSULT PROG Normal CONSULT PROG Normal CONSULT PROG Normal Comprehensive metabolic 2000 panelon 12-04-2024 Albumin [Mass/Vol] 2.5 g/dL Low 3.9-4.9 Comment on above: Order Comment: Speci men Type: BLOOD SPECIMENOrdering Facility: [facility] Address: [address] [place], [place] [address] [address] Performed By: #### 2 4323-8, , 2950-2 ####[facility] LABORATORYCLIA [id number] [place] [address] [place] ALP [Catalytic activity/Vol] 112 U/L Normal 34-123 Comment on above: Order Comment: Speci men Type: BLOOD SPECIMENOrdering Facility: [facility] Address: [address] [place] [address] [place] [address] Performed By: #### 2 4323-8, , 2950-2 ####[facility] LABORATORYCLIA [id number] [place] [id number] [place] ALT [Catalytic activity/Vol] U/L Low 7-38 Comment on above: Order Comment: Speci men Type: BLOOD SPECIMENOrdering Facility: [facility] Address: [address] [place] [address] [place] [address] Performed By: #### 2 4323-8, 13484-6, 2950-2 ####[facility] LABORATORYCLIA [id number] [place] [address] [place] Anion gap [Moles/Vol] 10 mmol/L Normal 8-[address] [facility] Comment on above: Order Comment: Speci men Type: BLOOD SPECIMENOrdering Facility: [facility] Address: [facility] [place] [address] Performed By: #### 2 4323-8, 73900-2, 2950-12 ####V[facility] LABORATORYCLIA [id number] [place] [address] [place] AST [Catalytic activity/Vol] 31 U/L Normal 13-35 Comment on above: Order Comment: Speci men Type: BLOOD SPECIMENOrdering Facility: [facility] Address: [address] [place] [address] [place] [address] Performed By: #### 2 4323-8, , 2950-12 ####VILLARREAL LABORATORYCLIA [id number] [place] [address] [place] Bilirubin [Mass/Vol] mg/dL Low 0.2-1.3 [facility] Comment on above: Order Comment: Speci men Type: BLOOD SPECIMENOrdering Facility: [facility] Address: [address] [place] [address] Performed By: #### 2 3-8, , 2950-12 ####VILLARREAL LABORATORYCLIA [id number] [address] [place] [facility] Calcium [Mass/Vol] 9.7 mg/dL Normal 8.5-10.2 Comment on above: Order Comment: Speci men Type: BLOOD SPECIMENOrdering Facility: [facility] Address: [address] [place] [address] Performed By: #### 2 4323-8, , 2950-12 ####VILLARRE[facility] LABORATORYCLIA [id number] [address] [place] Chloride [Moles/Vol] 95 mmol/L Low 98-107 [facility] Comment on above: Order Comment: Speci men Type: BLOOD SPECIMENOrdering Facility: [facility] Address: [address] [place] [address] [place] [address] Performed By: #### 2 4323-8, , 2950-2 ####VILLARREAL LABORATORYCLIA [id number] [place] [id number] [place] CO2 [Moles/Vol] 27 mmol/L Normal 22-30 Comment on above: Order Comment: Fan meade Type: BLOOD SPECIMENOrdering Facility: [facility] Address: [address] [place] [address] Performed By: #### 2 4323-8, 75629-0, 2950- ####VILLARREAL LABORATORYCLIA [id number] [place] [id number] [place] Creatinine [Mass/Vol] 0.84 mg/dL Normal 0.58-0.[address] [facility] Comment on above: Order Comment: Fan meade Type: BLOOD SPECIMENOrdering Facility: [facility] Address: [address] [place] [address] Performed By: #### 2 4323-8, , 2950-12 ####[facility] LABORATORYCLIA [id number] [address] STATES [facility] Creatinine and Glomerular filtration rate.predicted panel (S/P/Bld) 67 mL/min/1.73m??? Normal >=60 Comment on above: Order Comment: Fan meade Type: BLOOD SPECIMENOrdering Facility: [facility] Address: [address] [place] [address] Result Comment: Hilda mated Glomerular Filtration Rate [...] GFR. Performed By: #### 2 4323-8, , 2950-12 ####[facility] LABORATORYCLIA [id number] [place] [id number] [place] Glucose [Mass/Vol] 60 mg/dL Low 74-99 Comment on above: Order Comment: Fan meade Type: BLOOD SPECIMENOrdering Facility: [facility] Address: [address] [place] [address] [place] [address] Result Comment: The [place] Diabetes Association (ADA) provides guidance for cutoff [...] Standards of Medical Care in Diabetes 2016, [place]. Diabetes Care. 2016.39(Suppl 1). Performed By: #### 2 4323-8, , 2950-2 ####[facility] LABORATORYCLIA [id number] [place] [address] [place] Potassium [Moles/Vol] 4.6 mmol/L Normal 3.7-5.[address] [facility] Comment on above: Order Comment: Speci men Type: BLOOD SPECIMENOrdering Facility: [facility] Address: [address] [place] [address] Performed By: #### 2 4323-8, , 2 ####[facility] LABORATORYCLIA [id number] [place] [address] [place] Protein [Mass/Vol] 5.9 g/dL Low 6.3-8.0 Comment on above: Order Comment: Speci men Type: BLOOD SPECIMENOrdering Facility: [facility] Address: [address] [place] [address] Performed By: #### 2 4323-8, 80847-9, 2950-2 ####[facility] LABORATORYCLIA [id number] [place] [address] [place] Urea nitrogen [Mass/Vol] 37 mg/dL High 7-21 Comment on above: Order Comment: Katei men Type: BLOOD SPECIMENOrdering Facility: [facility] Address: [address] [place] [address] Performed By: #### 2 4323-8, 86506-9, 2951-2 ####[facility] LABORATORYCLIA [id number] [place] [address] [place] Creatinine Unsp time (U) [Ma ss/Vol]on 12-04-2024 Creatinine (U) [Mass/Vol] 41.7 mg/dL Normal 20.0-300.0 Comment on above: Order Comment: Speci men Type: URINE SPECIMENOrdering Facility: [facility] Address: [address] [place] [address] Performed By: #### 3 5678-2, 22223-6, 57845-4 ####[facility] LABCLIA [id number] [address] [place] Magnesium SerPl-mCncon 12-04 Magnesium [Mass/Vol] 2.0 mg/dL Normal 1.7-2.3 [facility] Comment on above: Order Comment: Speci men Type: BLOOD SPECIMENOrdering Facility: [facility] Address: [address] [place] [address] Performed By: #### 2 4323-8, 45290-4, 2951-2 ####[facility] LABORATORYCLIA [id number] [place] [address] [place] NUTRITIONon 12-04-2024 NUTRITION Normal Osmolality Uron 12-04-2024 Osmolality (U) [Osmolality] 412 mosm/kg Normal 50-1200 Comment on above: Order Comment: Speci men Type: URINE SPECIMENOrdering Facility: [facility] Address: [address] [place] [address] Performed By: #### 2 695-5 ####[facility] LABCLIA [id number] [address] [place] PATHOLOGIST INTERPRETATION C BC/DIFFon 12-04-2024 Architectural Design Professor review Mckay (Unsp spec) [Interp] No review performed. Normal Comment on above: Order Comment: Speci men Type: BLOOD SPECIMENOrdering Facility: [facility] Address: [address] [place], [place] [address] Performed By: #### S TFREV ####[facility] LABCLIA [id number] [place] [address] [place]#### 68036-9 ####[facility] LABORATORYCLIA [id number] [address] STAFF REVIEW, CBCDIF Normal [facility] Comment on above: Order Comment: Speci men Type: BLOOD SPECIMENOrdering Facility: [facility] Address: [address] [place] [address] Performed By: #### S TFREV ####[facility] LABCLIA [id number] [address] [place]#### 365[address]-3 ####[facility] LABORATORYCLIA [id number] [address] PT panel Coag (PPP)on 2024 INR Coag (PPP) [Relative time] 1.0 {INR} Normal 0.9-1.3 Comment on above: Order Comment: Speci halina Type: BLOOD SPECIMENOrdering Facility: [facility] Address: [address] [place] [address] Result Comment: Kendra min K Antagonist (VKA) Therapeutic Range: INR 2 to 3 (Target INR of 2.5)Note: For patients treated with VKA drugs, such as warfarin, the [place] [employer] 2012 Guideline recommends [...] of 3).Norma GH, et al. Chest 2012, 141:7S-47SNishdianeura RA, et al. JACC 2017, 70: 252-289 Performed By: #### 3 4528-0 ####[facility] LABORATORYCLIA [id number] [place] [address] [place] PT Coag (PPP) [Time] 10.6 s Normal 9.7-13.0 [facility] Comment on above: Order Comment: Speci men Type: BLOOD SPECIMENOrdering Facility: [facility] Address: [address] [place] [address] Performed By: #### 3 4528-0 ####VILL[facility] LABORATORYCLIA [id number] [place] [address] [place] Potassium ?Tm Ur-sCncon 11-15 Potassium Unsp time (U) [Moles/Vol] 41.7 mmol/L Normal 10.0-160.0 Comment on above: Order Comment: Speci men Type: URINE SPECIMENOrdering Facility: [facility] Address: [address] [place] [address] Performed By: #### 3 5678-2, 59265-2, 31349-1 ####[facility] LABCLIA [id number] [place] [address] [place] Sodium ?Tm Ur-sCncon 025 Sodium Unsp time (U) [Moles/Vol] <20 Normal 14-216 Comment on above: Order Comment: Speci men Type: URINE SPECIMENOrdering Facility: [facility] Address: [address] [place] [address] Performed By: #### 3 5678-2, 37530-2, 97891-9 ####[facility] LABCLIA [id number] [place] [address] [place] Sodium SerPl-sCncon 12-04-19 25 Sodium [Moles/Vol] 128 mmol/L Low 136-144 Comment on above: Order Comment: Speci men Type: BLOOD SPECIMENOrdering Facility: [facility] Address: [address] [place] [address] Performed By: #### 2 951-2 ####[facility] LABORATORYCLIA [id number] [place] [address] [place] Sodium [Moles/Vol] 133 mmol/L Low 136-144 [facility] Comment on above: Order Comment: Speci men Type: BLOOD SPECIMENOrdering Facility: [facility] Address: [address] [place] [address] Performed By: #### 2 951-2 ####[facility] LABORATORYCLIA [id number] [place] [address] [place] Sodium [Moles/Vol] 130 mmol/L Low 136-144 Comment on above: Order Comment: Speci men Type: BLOOD SPECIMENOrdering Facility: [facility] Address: [address] [place] [address] Performed By: #### 2 951-2 ####[facility] LABORATORYCLIA [id number] [place] [address] [place] Sodium [Moles/Vol] 132 mmol/L Low 136-144 Comment on above: Order Comment: Speci men Type: BLOOD SPECIMENOrdering Facility: [facility] Address: [address] [place] [address] Performed By: #### 2 4323-8, 20514-3, 2951-2 ####[facility] LABORATORYCLIA [id number] [place] [address] [place] [facility] [place] Sodium [Moles/Vol] 132 mmol/L Low 136-144 Comment on above: Order Comment: Speci men Type: BLOOD SPECIMENOrdering Facility: [facility] Address: [address] [place] [address] Performed By: #### 2 951-2 ####V[facility] LABORATORYCLIA [id number] [place] [address] [place] [facility] [place] THERAPY NTon 12-04-2024 THERAPY NT Normal ALLIED HEALTHon 12-03-2024 ALLIED HEALTH [facility] RUBEN BY IFA SCREENon 12-03-19 Nuclear Ab pattern (S) [Interp] Nuclear homogeneous Normal Comment on above: Order Comment: Speci men Type: BLOOD SPECIMENOrdering Facility: [facility] Address: [address] [place] [address] Performed By: #### A NAIFS ####[facility] LABCLIA [id number] [place] [address] [place] Nuclear Ab Ql (S) Positive Abnormal Negative Comment on above: Order Comment: Speci men Type: BLOOD SPECIMENOrdering Facility: [facility] Address: [address] [place] [address] Result Comment: Anti -nuclear antibody test is used as an aid in diagnosis of systemic autoimmune diseases. Where positive and clinically warranted, follow-up using disease-specific testing is recommended. Low positive titers are not uncommon with advanced age, certain chronic infections, and malignancies among others.Test methodology: Indirect fluorescence immunoassay (IFA) using HEp-2 cells.1:160 Performed By: #### A NAIFS ####[facility] LABCLIA [id number] [place] [address] [place] CASE MANAGEMon 12-03-2024 CASE MANAGEM Normal CBC W Auto Differential pane l (Bld)on 12-03-2024 Basophils (Bld) [#/Vol] 0.06 10*3/uL Normal <0.11 Comment on above: Order Comment: Speci men Type: BLOOD SPECIMENOrdering Facility: [facility] Address: [address] [place] [address] Performed By: #### 5 7021-8 ####V[facility] LABORATORYCLIA [id number] [place] [address] [place] Basophils/100 WBC (Bld) 0.3 % Normal [facility] Comment on above: Order Comment: Speci men Type: BLOOD SPECIMENOrdering Facility: [facility] Address: [address] [place] [address] Performed By: #### 5 7021-8 ####[facility] LABORATORYCLIA [id number] [place] [address] [place] Differential cell count method Nom (Bld) Auto Normal Comment on above: Order Comment: Speci men Type: BLOOD SPECIMENOrdering Facility: [facility] Address: [address] [place] [address] Performed By: #### 5 7021-8 ####[facility] LABORATORYCLIA [id number] [address] Eosinophils (Bld) [#/Vol] 0.18 10*3/uL Normal <0.46 Comment on above: Order Comment: Speci men Type: BLOOD SPECIMENOrdering Facility: [facility] Address: [address] [place] [address] Performed By: #### 5 7021-8 ####[facility] LABORATORYCLIA [id number] [address] Eosinophils/100 WBC (Bld) 0.9 % Normal Comment on above: Order Comment: Speci men Type: BLOOD SPECIMENOrdering Facility: [facility] Address: [address] [place] [address] Performed By: #### 5 7021-8 ####[facility] LABORATORYCLIA [id number] [address] Erythrocyte distribution width (RBC) [Ratio] 15.6 % High 11.5-15.0 Comment on above: Order Comment: Speci men Type: BLOOD SPECIMENOrdering Facility: [facility] Address: [address] [place] [address] Performed By: #### 5 7021-8 ####[facility] LABORATORYCLIA [id number] [address] Hematocrit (Bld) [Volume fraction] 26.0 % Low 36.0-46.0 Comment on above: Order Comment: Speci men Type: BLOOD SPECIMENOrdering Facility: [facility] Address: [address] [place] [address] Performed By: #### 5 7021-8 ####[facility] LABORATORYCLIA [id number] [address] [place] Hemoglobin (Bld) [Mass/Vol] 8.5 g/dL Low 11.5-15.5 Comment on above: Order Comment: Speci men Type: BLOOD SPECIMENOrdering Facility: [facility] Address: [address] [place] [address] Performed By: #### 5 7021-8 ####[facility] LABORATORYCLIA [id number] [address] [place] Immature granulocytes (Bld) [#/Vol] 0.29 10*3/uL High <0.10 Comment on above: Order Comment: Speci men Type: BLOOD SPECIMENOrdering Facility: [facility] Address: [address] [place] [address] Performed By: #### 5 7021-8 ####[facility] LABORATORYCLIA [id number] [address] Immature granulocytes/100 WBC (Bld) 1.5 % Normal Comment on above: Order Comment: Speci men Type: BLOOD SPECIMENOrdering Facility: [facility] Address: [address] [place] [address] Performed By: #### 5 7021-8 ####[facility] LABORATORYCLIA [id number] [place] [address] [place] Lymphocytes (Bld) [#/Vol] 0.75 10*3/uL Low 1.00-4.00 Comment on above: Order Comment: Speci men Type: BLOOD SPECIMENOrdering Facility: [facility] Address: [address] [place] [address] Performed By: #### 5 7021-8 ####[facility] LABORATORYCLIA [id number] [address] [place] Lymphocytes/100 WBC (Bld) 3.8 % Normal Comment on above: Order Comment: Speci men Type: BLOOD SPECIMENOrdering Facility: [facility] Address: [address] [place] [address] Performed By: #### 5 7021-8 ####[facility] LABORATORYCLIA [id number] [place] [address] [place] MCH (RBC) [Entitic mass] 28.5 pg Normal 26.0-34.0 Comment on above: Order Comment: Speci men Type: BLOOD SPECIMENOrdering Facility: [facility] Address: [address] [place] [address] Performed By: #### 5 7021-8 ####[facility] LABORATORYCLIA [id number] [address] [place] MCHC (RBC) [Mass/Vol] 32.7 g/dL Normal 30.5-36.[address] [facility] Comment on above: Order Comment: Speci men Type: BLOOD SPECIMENOrdering Facility: [facility] Address: [address] [place] [address] Performed By: #### 5 7021-8 ####[facility] LABORATORYCLIA [id number] [address] [place] MCV (RBC) [Entitic vol] 87.2 fL Normal 80.0-100.0 [facility] Comment on above: Order Comment: Speci men Type: BLOOD SPECIMENOrdering Facility: [facility] Address: [address] [place] [address] Performed By: #### 5 7021-8 ####[facility] LABORATORYCLIA [id number] [place] [address] [place] Monocytes (Bld) [#/Vol] 0.93 10*3/uL High <0.87 Comment on above: Order Comment: Speci men Type: BLOOD SPECIMENOrdering Facility: [facility] Address: [address] [place] [address] Performed By: #### 5 7021-8 ####[facility] LABORATORYCLIA [id number] [address] Monocytes/100 WBC (Bld) 4.7 % Normal [facility] Comment on above: Order Comment: Speci men Type: BLOOD SPECIMENOrdering Facility: [facility] Address: [address] [place] [address] Performed By: #### 5 7021-8 ####[facility] LABORATORYCLIA [id number] [address] [place] Neutrophils (Bld) [#/Vol] 17.78 10*3/uL High 1.45-7.50 Comment on above: Order Comment: Speci men Type: BLOOD SPECIMENOrdering Facility: [facility] Address: [facility] [place] [address] Performed By: #### 5 7021-8 ####[facility] LABORATORYCLIA [id number] [address] [place] Neutrophils/100 WBC (Bld) 88.8 % Normal Comment on above: Order Comment: Speci men Type: BLOOD SPECIMENOrdering Facility: [facility] Address: [address] [place] [address] Performed By: #### 5 7021-8 ####V[facility] LABORATORYCLIA [id number] [place] [address] [place] Nucleated RBC (Bld) [#/Vol] 10*3/uL Normal <0.01 Comment on above: Order Comment: Speci men Type: BLOOD SPECIMENOrdering Facility: [facility] Address: [address] [place] [address] Performed By: #### 5 7021-8 ####[facility] LABORATORYCLIA [id number] [place] [address] [place] Nucleated RBC/100 WBC (Bld) [Ratio] 0.0 /100 WBC Normal Comment on above: Order Comment: Speci men Type: BLOOD SPECIMENOrdering Facility: [facility] Address: [address] [place] [address] Performed By: #### 5 7021-8 ####[facility] LABORATORYCLIA [id number] [place] [address] [place] Platelet mean volume (Bld) [Entitic vol] 8.6 fL Low 9.0-12.7 Comment on above: Order Comment: Speci men Type: BLOOD SPECIMENOrdering Facility: [facility] Address: [address] [place] [address] Performed By: #### 5 7021-8 ####V[facility] LABORATORYCLIA [id number] [place] [address] [place] Platelets (Bld) [#/Vol] 442 10*3/uL High 150-400 Comment on above: Order Comment: Speci men Type: BLOOD SPECIMENOrdering Facility: [facility] Address: [address] [place] [address] Performed By: #### 5 7021-8 ####[facility] LABORATORYCLIA [id number] [place] [address] [place] RBC (Bld) [#/Vol] 2.98 10*6/uL Low 3.90-5.20 [facility] Comment on above: Order Comment: Speci men Type: BLOOD SPECIMENOrdering Facility: [facility] Address: [address] [place], [place] [address] Performed By: #### 5 7021-8 ####[facility] LABORATORYCLIA [id number] [address] [facility] WBC (Bld) [#/Vol] 19.99 10*3/uL High 3.70-11.00 [facility] Comment on above: Order Comment: Speci men Type: BLOOD SPECIMENOrdering Facility: [facility] Address: [address] [place], [place] [address] Performed By: #### 5 7021-8 ####[facility] LABORATORYCLIA [id number] [address] [place] CONSULTon 12-03-2024 CONSULT Normal CONSULT Normal CONSULT PROGon 12-03-2024 CONSULT PROG Normal CONSULT PROG Normal CONSULT PROG Normal CRP SerPl-mCncon 12-03-2024 CRP [Mass/Vol] 20.0 mg/dL High <0.9 Comment on above: Order Comment: Speci men Type: BLOOD SPECIMENOrdering Facility: [facility] Address: [address] [place] [address] Performed By: #### 1 988-5, 32861-6, 62405-6 ####[facility] LABORATORYCLIA [id number] [place] [address] [place] [address] CHEST WO IVCONon 12-03-[address] CHEST WO IVCON Invalid Interpretation Code Comprehensive metabolic 2000 panelon 12-03-2024 Albumin [Mass/Vol] 2.5 g/dL Low 3.9-4.9 Comment on above: Order Comment: Speci men Type: BLOOD SPECIMENOrdering Facility: [facility] Address: [address] [place] [address] Performed By: #### 1 988-5, 27233-5, 14093-9 ####[facility] LABORATORYCLIA [id number] [address] OF [facility] ALP [Catalytic activity/Vol] 93 U/L Normal 34-123 Comment on above: Order Comment: Speci men Type: BLOOD SPECIMENOrdering Facility: [facility] Address: [address] [place] [address] Performed By: #### 1 988-5, 54696-0, ####[facility] LABORATORYCLIA [id number] [address] ALT [Catalytic activity/Vol] U/L Low 7-38 Comment on above: Order Comment: Speci men Type: BLOOD SPECIMENOrdering Facility: [facility] Address: [address] [place] [address] Performed By: #### 1 988-5, 83817-6, ####[facility] LABORATORYCLIA [id number] [address] Anion gap [Moles/Vol] 10 mmol/L Normal 8-[address] [facility] Comment on above: Order Comment: Speci men Type: BLOOD SPECIMENOrdering Facility: [facility] Address: [address] [place] [address] Performed By: #### 1 988-5, 27249-3, 31628-7 ####[facility] LABORATORYCLIA [id number] [address] AST [Catalytic activity/Vol] 15 U/L Normal 13-35 Comment on above: Order Comment: Speci men Type: BLOOD SPECIMENOrdering Facility: [facility] Address: [address] [place] [address] Performed By: #### 1 988-5, 02325-5, ####[facility] LABORATORYCLIA [id number] [place] [address] [place] Bilirubin [Mass/Vol] 0.2 mg/dL Normal 0.2-1.3 [facility] Comment on above: Order Comment: Speci men Type: BLOOD SPECIMENOrdering Facility: [facility] Address: [address] [place] [address] Performed By: #### 1 988-5, , ####[facility] LABORATORYCLIA [id number] [place] [address] [place] Calcium [Mass/Vol] 9.2 mg/dL Normal 8.5-10.2 Comment on above: Order Comment: Speci men Type: BLOOD SPECIMENOrdering Facility: [facility] Address: [address] [place] [address] Performed By: #### 1 988-5, , ####[facility] LABORATORYCLIA [id number] [place] [address] [place] Chloride [Moles/Vol] 94 mmol/L Low 98-107 [facility] Comment on above: Order Comment: Speci men Type: BLOOD SPECIMENOrdering Facility: [facility] Address: [address] [place], [place] [address] Performed By: #### 1 988-5, , ####[facility] LABORATORYCLIA [id number] [place] [address] [place] CO2 [Moles/Vol] 24 mmol/L Normal 22-30 Comment on above: Order Comment: Speci men Type: BLOOD SPECIMENOrdering Facility: [facility] Address: [address] [place] [address] Performed By: #### 1 988-5, , ####[facility] LABORATORYCLIA [id number] [place] [id number] [place] Creatinine [Mass/Vol] 0.92 mg/dL Normal 0.58-0.[address] [facility] Comment on above: Order Comment: Fan meade Type: BLOOD SPECIMENOrdering Facility: [facility] Address: [address] [place] [address] Performed By: #### 1 988-5, 90740-3, 91768-0 ####[facility] LABORATORYCLIA [id number] [place] [address] [place] Creatinine and Glomerular filtration rate.predicted panel (S/P/Bld) 60 mL/min/1.73m??? Normal >=60 Comment on above: Order Comment: Fan meade Type: BLOOD SPECIMENOrdering Facility: [facility] Address: [address] [place] [address] Result Comment: Hilda mated Glomerular Filtration Rate [...] actual GFR. Performed By: #### 1 988-5, 92323-2, 88214-3 ####[facility] LABORATORYCLIA [id number] [place] [id number] [place] Glucose [Mass/Vol] 246 mg/dL High 74-99 Comment on above: Order Comment: Fan meade Type: BLOOD SPECIMENOrdering Facility: [facility] Address: [address] [place] [address] Result Comment: The [place] [employer] (ADA) provides guidance for cutoff [...] Standards of Medical Care in Diabetes 2016, [place]. Diabetes Care. 2016.39(Suppl 1). Performed By: #### 1 988-5, 37833-4, 59010-3 ####V[facility] LABORATORYCLIA [id number] [place] [address] [place] Potassium [Moles/Vol] 4.6 mmol/L Normal 3.7-5.[address] [facility] Comment on above: Order Comment: Speci men Type: BLOOD SPECIMENOrdering Facility: [facility] Address: [address] [place] [address] Performed By: #### 1 988-5, 68725-6, ####[facility] LABORATORYCLIA [id number] [place] [address] [place] Protein [Mass/Vol] 5.7 g/dL Low 6.3-8.0 Comment on above: Order Comment: Speci men Type: BLOOD SPECIMENOrdering Facility: [facility] Address: [address] [place] [address] Performed By: #### 1 988-5, 28393-3, ####[facility] LABORATORYCLIA [id number] [place] [address] [place] Sodium [Moles/Vol] 128 mmol/L Low 136-144 Comment on above: Order Comment: Speci men Type: BLOOD SPECIMENOrdering Facility: [facility] Address: [address] [place] [address] Performed By: #### 1 988-5, , ####[facility] LABORATORYCLIA [id number] [place] [address] [place] Urea nitrogen [Mass/Vol] 37 mg/dL High 7-21 Comment on above: Order Comment: Speci men Type: BLOOD SPECIMENOrdering Facility: [facility] Address: [address] [place] [address] Performed By: #### 1 988-5, 17640-3, 80339-1 ####[facility] LABORATORYCLIA [id number] [place] [id number] [place] Cyclic citrullinated peptide IgG Qnon 12-03-2024 [facility] ANTIBODY IGG QUALITATIVE Negative Normal Negative Comment on above: Order Comment: Speci men Type: BLOOD SPECIMENOrdering Facility: [facility] Address: [address] [place] [address] Performed By: #### 3 3935-8 ####[facility] LABCLIA [id number] [place] [address] [place] ESR Westergren method (Bld) [Velocity]on 12-03-2024 ESR (Bld) [Velocity] 124 mm/h High 0-20 [facility] Comment on above: Order Comment: Speci men Type: BLOOD SPECIMENOrdering Facility: [facility] Address: [address] [place] [address] Performed By: #### 4 537-7 ####[facility] LABCLIA [id number] [place] [address] [place] Magnesium SerPl-mCncon 12-03 Magnesium [Mass/Vol] 1.8 mg/dL Normal 1.7-2.3 [facility] Comment on above: Order Comment: Speci men Type: BLOOD SPECIMENOrdering Facility: [facility] Address: [address] [place] [address] Performed By: #### 1 988-5, 23763-8, 32991-5 ####[facility] LABORATORYCLIA [id number] [place] [address] [place] Rheumatoid fact SerPl-aCncon 12-03-2024 Rheumatoid factor Qn 19 [IU]/mL High <16 [facility] Comment on above: Order Comment: Speci men Type: BLOOD SPECIMENOrdering Facility: [facility] Address: [address] [place] [address] Performed By: #### 1 1572-5 ####[facility] LABCLIA [id number] [place] [address] [place] Sodium SerPl-sCncon 12-03-19 Sodium [Moles/Vol] 129 mmol/L Low 136-144 Comment on above: Order Comment: Speci men Type: BLOOD SPECIMENOrdering Facility: [facility] Address: [address] [place] [address] Performed By: #### 2 951-2 ####[facility] LABORATORYCLIA [id number] [address] STATES OF [facility] Sodium [Moles/Vol] 130 mmol/L Low 136-144 Comment on above: Order Comment: Speci men Type: BLOOD SPECIMENOrdering Facility: [facility] Address: [address] [place] [address] Performed By: #### 2 951-2 ####[facility] LABORATORYCLIA [id number] [place] [address] [place] Sodium [Moles/Vol] 128 mmol/L Low 136-144 Comment on above: Order Comment: Speci men Type: BLOOD SPECIMENOrdering Facility: [facility] Address: [address] [place] [address] Performed By: #### 2 951-2 ####[facility] LABORATORYCLIA [id number] [place] [address] [place] THERAPY NTon 12-03-2024 THERAPY NT Normal THERAPY NT Normal THERAPY NT Normal cCP IgG SerPl-aCncon 025 Cyclic citrullinated peptide IgG Qn <15 Normal <20 Comment on above: Order Comment: Speci men Type: BLOOD SPECIMENOrdering Facility: [facility] Address: [address] [place] [address] Performed By: #### 3 3935-8 ####[facility] LABCLIA [id number] [facility] [place] [place] [address] [place] 25(OH)D3 SerPl-mCncon 2024 25-hydroxyvitamin D3 [Mass/Vol] 13.4 ng/mL Low 31.0-80.0 Comment on above: Order Comment: Speci men Type: BLOOD SPECIMENOrdering Facility: [facility] Address: [address] [place] [address] Result Comment: Clas sification of 25 [place] Vitamin D status:Deficiency/Insufficiency: < or = 30 ng/ml.Sufficiency/Optimal Levels: 31-80 ng/mLToxicity: > 100 ng/mL.Test performed by chemiluminescent immunoassay. Performed By: #### 1 989-3, 52515-3, 42662-8, [facility], 6969-0 ####[facility] LABCLIA [id number] [facility] [id number] [place] [address] [place] ALLIED HEALTHon 12-02-2024 ALLIED HEALTH Normal [facility] Normal ARTERIAL BLOOD GASESon 12-02 Base excess Calc (Bld) [Moles/Vol] 4 mmol/L High 0-2 Comment on above: Order Comment: Speci men Type: ARTERIAL BLOOD SPECIMENOrdering Facility: [facility] Address: [address] [place] [address] Performed By: #### A LLBG ####[facility]ORYVER[facility] [id number] [facility] [id number] [address] Carboxyhemoglobin (BldA) [Mass fraction] 1.4 % Normal 0.0-2.0 Comment on above: Order Comment: Speci men Type: ARTERIAL BLOOD SPECIMENOrdering Facility: [facility] Address: [address] [place] [address] Result Comment: Carb oxyhemoglobin Reference Range for Smokers: 2.0-8.0% Performed By: #### A LLBG ####[facility]ORYVER[facility] [id number] [facility] RESPIRAT[facility] [id number] [address] [address] CO2 (Bld) [Partial pressure] 41 mm Hg Normal 36-46 Comment on above: Order Comment: Speci men Type: ARTERIAL BLOOD SPECIMENOrdering Facility: [facility] Address: [address] [place] [address] Performed By: #### A LLBG ####[facility] [id number] [facility]OS[facility] RESPIRATORY [id number] [address] CO2 adjusted to patient's actual temperature (Bld) [Partial pressure] Normal Comment on above: Order Comment: Speci men Type: ARTERIAL BLOOD SPECIMENOrdering Facility: [facility] Address: [address] [place] [address] Performed By: #### A LLBG ####[facility] RESPIRATORYCLIA [id number] [facility]OS[facility] RESPIRAT[facility] [id number] [address] [address] HCO3 (Bld) [Moles/Vol] 28 mmol/L High 22-26 [facility] Comment on above: Order Comment: Speci men Type: ARTERIAL BLOOD SPECIMENOrdering Facility: [facility] Address: [address] [place] [address] Performed By: #### A LLBG ####[facility] RESPIRATORYCLIA [id number] [facility]OS[facility] RESPIRATORY [id number] [address] [address] Hemoglobin (Bld) [Mass/Vol] 10.3 g/dL Low 11.5-15.5 Comment on above: Order Comment: Speci men Type: ARTERIAL BLOOD SPECIMENOrdering Facility: [facility] Address: [address] [place] [address] Performed By: #### A LLBG ####[facility] RESPIRATORYCLIA [id number] [facility]OSP[facility] RESPIRATORY [id number] [address] Lactate [Moles/Vol] 1.0 mmol/L Normal 0.5-2.2 [facility] Comment on above: Order Comment: Speci men Type: ARTERIAL BLOOD SPECIMENOrdering Facility: [facility] Address: [address] [place] [address] Performed By: #### A LLBG ####[facility] RESPIRATORYCLIA [id number] [facility] RESPIRATORY [id number] [address] Methemoglobin (Bld) [Mass fraction] % Normal 0.0-1.5 Comment on above: Order Comment: Speci men Type: ARTERIAL BLOOD SPECIMENOrdering Facility: [facility] Address: [address] [place] [address] Performed By: #### A LLBG ####[facility] RESPIRATORYIA [id number] [facility]OS[facility] RESPIRATORY [id number] [address] O2 THERAPY RA=Room Air Normal Comment on above: Order Comment: Speci men Type: ARTERIAL BLOOD SPECIMENOrdering Facility: [facility] Address: [address] [place] [address] Performed By: #### A LLBG ####[facility]ORY[facility] [id number] [facility] RESPIRATORY [id number] [address] [address] Oxygen (Bld) [Partial pressure] 61 mm Hg Low 85-95 Comment on above: Order Comment: Speci men Type: ARTERIAL BLOOD SPECIMENOrdering Facility: [facility] Address: [address] [place] [address] Performed By: #### A LLBG ####[place] [id number] [place] [address] RESPIRATORY [id number] [address] [address] Oxygen adjusted to patient's actual temperature (Bld) [Partial pressure] Normal Comment on above: Order Comment: Speci men Type: ARTERIAL BLOOD SPECIMENOrdering Facility: [facility] Address: [address] [place] [address] Performed By: #### A LLBG ####[facility]ORY[facility] [id number] [facility]OSP[facility] RESPIRATORY [id number] [address] Oxyhemoglobin (BldA) [Mass fraction] 90 % Low 95-98 Comment on above: Order Comment: Speci men Type: ARTERIAL BLOOD SPECIMENOrdering Facility: [facility] Address: [address] [place] [address] Performed By: #### A LLBG ####[facility] [id number] [facility]OS[facility] RESPIRATORY [id number] [address] [address] pH (Bld) 7.45 [pH] Normal 7.35-7.45 Comment on above: Order Comment: Speci men Type: ARTERIAL BLOOD SPECIMENOrdering Facility: [facility] Address: [address] [place] [address] Performed By: #### A LLBG ####[facility] RESPIRATORYCLIA [id number] [facility] RESPIRATORY [id number] [place] [address] pH adjusted to patient's actual temperature (Bld) Normal Comment on above: Order Comment: Speci men Type: ARTERIAL BLOOD SPECIMENOrdering Facility: [facility] Address: [address] [place] [address] Performed By: #### A LLBG ####[facility] RESPIRATORYCLIA [id number] [facility]OS[facility] RESPIRATORY [id number] [place] [address] PO2 / FIO2 RATIO 290 mmHg Low >300 Comment on above: Order Comment: Speci men Type: ARTERIAL BLOOD SPECIMENOrdering Facility: [facility] Address: [address] [place] [address] Performed By: #### A LLBG ####[facility] RESPIRATORYIA [id number] [facility]OSP[facility] RESPIRATORY [id number] [place] [address] Potassium [Moles/Vol] 4.0 mmol/L Normal 3.5-5.[address] [facility] Comment on above: Order Comment: Speci men Type: ARTERIAL BLOOD SPECIMENOrdering Facility: [facility] Address: [address] [place] [address] Performed By: #### A LLBG ####[facility] RESPIRATORYIA [id number] [facility]OSP[facility] RESPIRATORY [id number] [place] [address] Ammonia Plas-sCncon 12-02-19 25 Ammonia (P) [Moles/Vol] 14 umol/L Normal 11-51 [facility] Comment on above: Order Comment: Speci men Type: BLOOD SPECIMENOrdering Facility: [facility] Address: [address] [place] [address] Performed By: #### 1 6362-6 ####[facility] LABORATORYCLIA [id number] [place] [address] [place] CBC W Auto Differential pane l (Bld)on 12-02-2024 Basophils (Bld) [#/Vol] 0.06 10*3/uL Normal <0.11 Comment on above: Order Comment: Speci men Type: BLOOD SPECIMENOrdering Facility: [facility] Address: [address] [place] [address] Performed By: #### 5 7021-8 ####[facility] LABORATORYCLIA [id number] [place] [address] [place] Basophils/100 WBC (Bld) 0.3 % Normal [facility] Comment on above: Order Comment: Speci men Type: BLOOD SPECIMENOrdering Facility: [facility] Address: [address] [place] [address] Performed By: #### 5 7021-8 ####[facility] LABORATORYCLIA [id number] [place] [address] [place] Differential cell count method Nom (Bld) Auto Normal Comment on above: Order Comment: Speci men Type: BLOOD SPECIMENOrdering Facility: [facility] Address: [address] [place] [address] Performed By: #### 5 7021-8 ####[facility] LABORATORYCLIA [id number] [place] [address] [place] Eosinophils (Bld) [#/Vol] 0.24 10*3/uL Normal <0.46 Comment on above: Order Comment: Speci men Type: BLOOD SPECIMENOrdering Facility: [facility] Address: [address] [place] [address] Performed By: #### 5 7021-8 ####[facility] LABORATORYCLIA [id number] [place] [address] [place] Eosinophils/100 WBC (Bld) 1.2 % Normal Comment on above: Order Comment: Speci men Type: BLOOD SPECIMENOrdering Facility: [facility] Address: [address] [place] [address] Performed By: #### 5 7021-8 ####[facility] LABORATORYCLIA [id number] [place] [address] [place] Erythrocyte distribution width (RBC) [Ratio] 15.6 % High 11.5-15.0 Comment on above: Order Comment: Speci men Type: BLOOD SPECIMENOrdering Facility: [facility] Address: [address] [place] [address] Performed By: #### 5 7021-8 ####[facility] LABORATORYCLIA [id number] [place] [address] [place] Hematocrit (Bld) [Volume fraction] 27.1 % Low 36.0-46.0 Comment on above: Order Comment: Speci men Type: BLOOD SPECIMENOrdering Facility: [facility] Address: [address] [place] [address] Performed By: #### 5 7021-8 ####[facility] LABORATORYCLIA [id number] [place] [address] [place] Hemoglobin (Bld) [Mass/Vol] 9.0 g/dL Low 11.5-15.5 Comment on above: Order Comment: Speci men Type: BLOOD SPECIMENOrdering Facility: [facility] Address: [address] [place] [address] Performed By: #### 5 7021-8 ####[facility] LABORATORYCLIA [id number] [place] [address] [place] Immature granulocytes (Bld) [#/Vol] 0.23 10*3/uL High <0.10 Comment on above: Order Comment: Speci men Type: BLOOD SPECIMENOrdering Facility: [facility] Address: [address] [place] [address] Performed By: #### 5 7021-8 ####[facility] LABORATORYCLIA [id number] [place] [address] [place] Immature granulocytes/100 WBC (Bld) 1.2 % Normal Comment on above: Order Comment: Speci men Type: BLOOD SPECIMENOrdering Facility: [facility] Address: [address] [place] [address] Performed By: #### 5 7021-8 ####[facility] LABORATORYCLIA [id number] [place] [address] [place] Lymphocytes (Bld) [#/Vol] 0.92 10*3/uL Low 1.00-4.00 Comment on above: Order Comment: Speci men Type: BLOOD SPECIMENOrdering Facility: [facility] Address: [address] [place] [address] Performed By: #### 5 7021-8 ####[facility] LABORATORYCLIA [id number] [address] Lymphocytes/100 WBC (Bld) 4.7 % Normal Comment on above: Order Comment: Speci men Type: BLOOD SPECIMENOrdering Facility: [facility] Address: [address] [place] [address] Performed By: #### 5 7021-8 ####[facility] LABORATORYCLIA [id number] [address] STATES [facility] MCH (RBC) [Entitic mass] 28.2 pg Normal 26.0-34.0 Comment on above: Order Comment: Speci men Type: BLOOD SPECIMENOrdering Facility: [facility] Address: [address] [place] [address] Performed By: #### 5 7021-8 ####[facility] LABORATORYCLIA [id number] [address] MCHC (RBC) [Mass/Vol] 33.2 g/dL Normal 30.5-36.[address] [facility] Comment on above: Order Comment: Speci men Type: BLOOD SPECIMENOrdering Facility: [facility] Address: [address] [place] [address] Performed By: #### 5 7021-8 ####[facility] LABORATORYCLIA [id number] [address] STATES [facility] MCV (RBC) [Entitic vol] 85.0 fL Normal 80.0-100.0 M [facility] Comment on above: Order Comment: Speci men Type: BLOOD SPECIMENOrdering Facility: [facility] Address: [address] [place] [address] Performed By: #### 5 7021-8 ####[facility] LABORATORYCLIA [id number] [address] [place] Monocytes (Bld) [#/Vol] 1.07 10*3/uL High <0.87 Comment on above: Order Comment: Speci men Type: BLOOD SPECIMENOrdering Facility: [facility] Address: [address] [place] [address] Performed By: #### 5 7021-8 ####[facility] LABORATORYCLIA [id number] [place] [address] [place] Monocytes/100 WBC (Bld) 5.4 % Normal [facility] Comment on above: Order Comment: Speci men Type: BLOOD SPECIMENOrdering Facility: [facility] Address: [address] [place] [address] Performed By: #### 5 7021-8 ####[facility] LABORATORYCLIA [id number] [place] [address] [place] Neutrophils (Bld) [#/Vol] 17.12 10*3/uL High 1.45-7.50 Comment on above: Order Comment: Speci men Type: BLOOD SPECIMENOrdering Facility: [facility] Address: [address] [place] [address] Performed By: #### 5 7021-8 ####[facility] LABORATORYCLIA [id number] [place] [id number] [place] Neutrophils/100 WBC (Bld) 87.2 % Normal Comment on above: Order Comment: Speci men Type: BLOOD SPECIMENOrdering Facility: [facility] Address: [address] [place] [address] Performed By: #### 5 7021-8 ####[facility] LABORATORYCLIA [id number] [place] [address] [place] Nucleated RBC (Bld) [#/Vol] 10*3/uL Normal <0.01 Comment on above: Order Comment: Speci men Type: BLOOD SPECIMENOrdering Facility: [facility] Address: [address] [place] [address] Performed By: #### 5 7021-8 ####[facility] LABORATORYCLIA [id number] [place] [address] [place] Nucleated RBC/100 WBC (Bld) [Ratio] 0.0 /100 WBC Normal Comment on above: Order Comment: Speci men Type: BLOOD SPECIMENOrdering Facility: [facility] Address: [address] [place] [address] Performed By: #### 5 7021-8 ####[facility] LABORATORYCLIA [id number] [place] [address] [place] Platelet mean volume (Bld) [Entitic vol] 8.8 fL Low 9.0-12.7 Comment on above: Order Comment: Speci men Type: BLOOD SPECIMENOrdering Facility: [facility] Address: [address] [place] [address] Performed By: #### 5 7021-8 ####[facility] LABORATORYCLIA [id number] [place] [address] [place] Platelets (Bld) [#/Vol] 439 10*3/uL High 150-400 Comment on above: Order Comment: Speci men Type: BLOOD SPECIMENOrdering Facility: [facility] Address: [address] [place] [address] Performed By: #### 5 7021-8 ####[facility] LABORATORYCLIA [id number] [place] [id number] [place] RBC (Bld) [#/Vol] 3.19 10*6/uL Low 3.90-5.20 [facility] Comment on above: Order Comment: Speci men Type: BLOOD SPECIMENOrdering Facility: [facility] Address: [address] [place] [address] Performed By: #### 5 7021-8 ####[facility] LABORATORYCLIA [id number] [place] [address] [place] WBC (Bld) [#/Vol] 19.64 10*3/uL High 3.70-11.00 [facility] Comment on above: Order Comment: Speci men Type: BLOOD SPECIMENOrdering Facility: [facility] Address: [address] [place] [address] Performed By: #### 5 7021-8 ####[facility] LABORATORYCLIA [id number] [place] [address] [place] CK SerPl-cCncon 12-02-2024 CK [Catalytic activity/Vol] 48 U/L Normal 42-196 Comment on above: Order Comment: Speci men Type: BLOOD SPECIMENOrdering Facility: [facility] Address: [address] [place] [address] Performed By: #### 2 951-2, 2157-6, 3084-1 ####[facility] LABORATORYCLIA [id number] [place] [address] [place] CONSULT PROGon 12-02-2024 CONSULT PROG Normal CRP SerPl-mCncon 12-02-2024 CRP [Mass/Vol] 14.2 mg/dL High <0.9 Comment on above: Order Comment: Speci men Type: BLOOD SPECIMENOrdering Facility: [facility] Address: [address] [place] [address] Performed By: #### 3 084-1, 53302-9, , 1988-03 ####[facility] LABORATORYCLIA [id number] [place] [address] [place] Comprehensive metabolic 2000 panelon 12-02-2024 Albumin [Mass/Vol] 2.3 g/dL Low 3.9-4.9 Comment on above: Order Comment: Speci men Type: BLOOD SPECIMENOrdering Facility: [facility] Address: [address] [place] [address] Performed By: #### 3 084-1, 46013-2, , 1988-03 ####[facility] LABORATORYCLIA [id number] [place] [address] [place] ALP [Catalytic activity/Vol] 94 U/L Normal 34-123 Comment on above: Order Comment: Speci men Type: BLOOD SPECIMENOrdering Facility: [facility] Address: [address] [place], [place] [address] Performed By: #### 3 084-1, , , 1988-03 ####[facility] LABORATORYCLIA [id number] [place] [address] [place] ALT [Catalytic activity/Vol] U/L Low 7-38 Comment on above: Order Comment: Speci men Type: BLOOD SPECIMENOrdering Facility: [facility] Address: [address] [place] [address] [place] [address] Performed By: #### 3 084-1, , , 1988-03 ####[facility] LABORATORYCLIA [id number] [place] [address] [place] Anion gap [Moles/Vol] 11 mmol/L Normal 8-[address] [facility] Comment on above: Order Comment: Speci men Type: BLOOD SPECIMENOrdering Facility: [facility] Address: [address] [place] [address] Performed By: #### 3 084-1, , , 1988-03 ####[facility] LABORATORYCLIA [id number] [place] [address] [place] AST [Catalytic activity/Vol] 15 U/L Normal 13-35 Comment on above: Order Comment: Speci men Type: BLOOD SPECIMENOrdering Facility: [facility] Address: [address] [place] [address] Performed By: #### 3 084-1, , , 1988-03 ####[facility] LABORATORYCLIA [id number] [place] [address] [place] Bilirubin [Mass/Vol] 0.2 mg/dL Normal 0.2-1.3 [facility] Comment on above: Order Comment: Speci men Type: BLOOD SPECIMENOrdering Facility: [facility] Address: [address] [place] [address] Performed By: #### 3 084-1, , , 1988-03 ####[facility] LABORATORYCLIA [id number] [place] [address] [place] Calcium [Mass/Vol] 9.0 mg/dL Normal 8.5-10.2 Comment on above: Order Comment: Speci men Type: BLOOD SPECIMENOrdering Facility: [facility] Address: [address] [place], [place] [address] Performed By: #### 3 084-1, , , 1988-03 ####[facility] LABORATORYCLIA [id number] [place] [address] [place] Chloride [Moles/Vol] 93 mmol/L Low 98-107 [facility] Comment on above: Order Comment: Speci men Type: BLOOD SPECIMENOrdering Facility: [facility] Address: [address] [place] [address] Performed By: #### 3 084-1, , , 1988-03 ####[facility] LABORATORYCLIA [id number] [place] [id number] [place] CO2 [Moles/Vol] 24 mmol/L Normal 22-30 Comment on above: Order Comment: Speci men Type: BLOOD SPECIMENOrdering Facility: [facility] Address: [address] [place] [address] Performed By: #### 3 084-1, , , 1988-03 ####[facility] LABORATORYCLIA [id number] [place] [address] [place] Creatinine [Mass/Vol] 0.89 mg/dL Normal 0.58-0.[address] [facility] Comment on above: Order Comment: Speci men Type: BLOOD SPECIMENOrdering Facility: [facility] Address: [address] [place] [address] Performed By: #### 3 084-1, , , 1988-03 ####[facility] LABORATORYCLIA [id number] [place] [id number] [place] Creatinine and Glomerular filtration rate.predicted panel (S/P/Bld) 62 mL/min/1.73m??? Normal >=60 Comment on above: Order Comment: Speci men Type: BLOOD SPECIMENOrdering Facility: [facility] Address: [address] [place] [address] Result Comment: Hilda mated Glomerular Filtration Rate [...] By: #### 3 084-1, , , 1988-03 ####[facility] LABORATORYCLIA [id number] [place] [address] [place] Glucose [Mass/Vol] 289 mg/dL High 74-99 Comment on above: Order Comment: Fan meade Type: BLOOD SPECIMENOrdering Facility: [facility] Address: [address] [place] [address] Result Comment: The [place] [employer] (ADA) provides guidance for cutoff [...] Standards of Medical Care in Diabetes 2016, [place] [employer]. Diabetes Care. 2016.39(Suppl 1). Performed By: #### 3 084-1, , , 1988-03 ####[facility]ORATORYCLIA [id number] [place] [address] [place] Potassium [Moles/Vol] 4.4 mmol/L Normal 3.7-5.[address] [facility] Comment on above: Order Comment: Fan meade Type: BLOOD SPECIMENOrdering Facility: [facility] Address: [address] [id number] Performed By: #### 3 084-1, , , 1988-03 ####[facility]ORATORYCLIA [id number] [place] [address] [place] Protein [Mass/Vol] 5.6 g/dL Low 6.3-8.0 Comment on above: Order Comment: Speci men Type: BLOOD SPECIMENOrdering Facility: [facility] Address: [address] [place] [address] Performed By: #### 3 084-1, , , 1988-03 ####[facility]ORATORYCLIA [id number] [address] [place] Sodium [Moles/Vol] 128 mmol/L Low 136-144 Comment on above: Order Comment: Speci men Type: BLOOD SPECIMENOrdering Facility: [facility] Address: [address] [place] [address] Performed By: #### 3 084-1, , , 1988-03 ####[facility]ORATORYCLIA [id number] [address] Urea nitrogen [Mass/Vol] 36 mg/dL High 7-21 Comment on above: Order Comment: Speci men Type: BLOOD SPECIMENOrdering Facility: [facility] Address: [address] [place] [address] Performed By: #### 3 084-1, , , 1988-03 ####[facility]ORATORYCLIA [id number] [address] DNA double strand Ab IA Qn ( S)on 12-02-2024 DNA ANTIBODY 117 IU/mL Normal <=200 Comment on above: Order Comment: Speci men Type: BLOOD SPECIMENOrdering Facility: [facility] Address: [address] [place] [address] Result Comment: Nega tive: <200 IU/mLEquivocal: 201-300 IU/mLModerate Positive: 301-800 IU/mLStrong Positive: >801 IU/mL Performed By: #### 1 989-3, 50458-1, 54665-9, [facility], 6969-0 ####[facility] LABCLIA [id number] [address] [place] DNA ANTIBODY QUALITATIVE INTERPRETATION Negative Normal Negative Comment on above: Order Comment: Speci men Type: BLOOD SPECIMENOrdering Facility: [facility] Address: [address] [place] [address] Performed By: #### 1 989-3, 42354-4, 28184-2, [facility], 6969-0 ####[facility] LABCLIA [id number] [place] [address] [place] ESR Westergren method (Bld) [Velocity]on 12-02-2024 ESR (Bld) [Velocity] 120 mm/h High 0-20 [facility] Comment on above: Order Comment: Speci men Type: BLOOD SPECIMENOrdering Facility: [facility] Address: [address] [place] [address] Performed By: #### 4 537-7 ####[facility] LABCLIA [id number] [place] [address] [place] MRI BRAIN WO/W IVCONon 12-02 MRI BRAIN WO/W IVCON Normal [facility] MRI CERVICAL SPINE WO/W IVCO Non 12-02-2024 MRI CERVICAL SPINE WO/W IVCON Normal MRI LUMBAR SPINE WO/W IVCONo n 12-02-2024 MRI LUMBAR SPINE WO/W IVCON Normal MRI THORACIC SPINE WO/W IVCO Non 12-02-2024 MRI THORACIC SPINE WO/W IVCON Normal Magnesium SerPl-mCncon 12-02 Magnesium [Mass/Vol] 1.5 mg/dL Low 1.7-2.3 [facility] Comment on above: Order Comment: Speci men Type: BLOOD SPECIMENOrdering Facility: [facility] Address: [address] [place] [address] Performed By: #### 3 084-1, 24691-7, 75252-8, 1987- ####[facility]ORYCLIA [id number] [place] [address] [place] Myeloperoxidase Ab Ser-aCnco n 12-02-2024 Myeloperoxidase Ab Qn (S) <0.2 Normal <1.0 Comment on above: Order Comment: Speci men Type: BLOOD SPECIMENOrdering Facility: [facility] Address: [address] [place] [address] Performed By: #### 1 989-3, 10540-2, 51866-8, ANCA, 6969-0 ####[facility] LABCLIA [id number] [place] [address] [place] Osmolality SerPlon Osmolality [Osmolality] 285 mosm/kg Normal 275-300 Comment on above: Order Comment: Speci men Type: BLOOD SPECIMENOrdering Facility: [facility] Address: [address] [place] [address] Performed By: #### 2 692-2 ####[facility] LABIA [id number] [place] [address] [place] Osmolality Uron 12-02-2024 Osmolality (U) [Osmolality] 488 mosm/kg Normal 50-1200 Comment on above: Order Comment: Speci men Type: URINE SPECIMENOrdering Facility: [facility] Address: [address] [place] [address] Performed By: #### 2 695-5 ####[facility] LABIA [id number] [place] [address] [place] PROTEINASE 3 ANTIBODYon 11-14 Proteinase 3 Ab Qn (S) <0.2 Normal <1.0 [facility] Comment on above: Order Comment: Speci men Type: BLOOD SPECIMENOrdering Facility: [facility] Address: [address] [place] [address] Performed By: #### 1 989-3, 21398-8, 37446-9, ANCA, 6969-0 ####[facility] LABCLIA [id number] [place] [address] [place] Phosphate SerPl-mCncon 12-02 Phosphate [Mass/Vol] 3.0 mg/dL Normal 2.7-4.8 [facility] Comment on above: Order Comment: Speci men Type: BLOOD SPECIMENOrdering Facility: [facility] Address: [address] [place] [address] Performed By: #### 2 777-1 ####[facility]ATORYCLIA [id number] [place] [address] [place] Smooth muscle Ab Ql (S)on ACTIN SMOOTH MUSCLE IGG QUALITATIVE Negative Normal Negative Comment on above: Order Comment: Speci men Type: BLOOD SPECIMENOrdering Facility: [facility] Address: [address] [place] [address] Performed By: #### 1 989-3, 16684-7, 43676-4, ANCA, 6969-0 ####[facility] LABCLIA [id number] [place] [address] [place] ACTIN SMOOTH MUSCLE IGG QUANTITATIVE 3 Units Normal <20 Comment on above: Order Comment: Speci men Type: BLOOD SPECIMENOrdering Facility: [facility] Address: [address] [place] [address] Performed By: #### 1 989-3, 75920-4, 80399-4, ANCA, 6969-0 ####[facility] LABCLIA [id number] [place] [address] [place] Sodium SerPl-sCncon 12-02-19 25 Sodium [Moles/Vol] 127 mmol/L Low 136-144 Comment on above: Order Comment: Speci men Type: BLOOD SPECIMENOrdering Facility: [facility] Address: [address] [place] [address] Performed By: #### 2 951-2 ####[facility]ORYCLIA [id number] [place] [id number] [place] Sodium [Moles/Vol] 130 mmol/L Low 136-144 Comment on above: Order Comment: Speci men Type: BLOOD SPECIMENOrdering Facility: [facility] Address: [address] [place], [place] [address] Performed By: #### 2 951-2, 2157-04, 3083-11 ####[facility]ORATORYCLIA [id number] [place] [address] [place] US ABD RIGHT UPPER QUADRANTo n 12-02-2024 US ABD RIGHT UPPER QUADRANT Normal US ABD SPLEEN -NBon 12-02-19 US ABD SPLEEN -NB Normal US EXT MASS/FLUID COLLECTION LTon 12-02-2024 US EXT MASS/FLUID COLLECTION LT Normal Urate SerPl-mCncon Urate [Mass/Vol] 4.9 mg/dL Normal 2.5-6.6 Comment on above: Order Comment: Speci men Type: BLOOD SPECIMENOrdering Facility: [facility] Address: [address] [place] [address] Performed By: #### 2 951-2, 2157-04, 3083-11 ####[facility]ORATORYCLIA [id number] [address] [place] Urate [Mass/Vol] 5.1 mg/dL Normal 2.5-6.6 Comment on above: Order Comment: Speci men Type: BLOOD SPECIMENOrdering Facility: [facility] Address: [address] [place] [address] Performed By: #### 3 084-1, 01263-0, 61350-0, 1987- ####[facility]ORATORYCLIA [id number] [place] [address] [place] ALLIED HEALTHon 12-01-2024 ALLIED HEALTH [facility] Bacteria Ur Culton Bacteria identified Cx Nom (U) CULTURE, URINE: Mixed microbiota: ORGANISM ID: 1 <10,000 CFU/ml Lactose negative gram negative bacilli Insignificant colony count. No further workup. [facility] Comment on above: Performed By: #### 6 30-4 ####[facility] LABCLIA [id number] [facility] [place] [id number] [place] Basic metabolic 2000 panelon 12-01-2024 Anion gap [Moles/Vol] 12 mmol/L Normal 8-[address] [facility] Comment on above: Order Comment: Speci men Type: BLOOD SPECIMENOrdering Facility: [facility] Address: [address] [place] [address] Performed By: #### 2 4321-2 ####[facility] LABORATORYCLIA [id number] [place] [address] [place] Calcium [Mass/Vol] 8.7 mg/dL Normal 8.5-10.2 Comment on above: Order Comment: Speci men Type: BLOOD SPECIMENOrdering Facility: [facility] Address: [address] [place] [address] Performed By: #### 2 4321-2 ####[facility] LABORATORYCLIA [id number] [place] [address] [place] Chloride [Moles/Vol] 91 mmol/L Low 98-107 [facility] Comment on above: Order Comment: Speci men Type: BLOOD SPECIMENOrdering Facility: [facility] Address: [address] [place] [address] Performed By: #### 2 4321-2 ####[facility]ORATORYCLIA [id number] [place] [address] [place] CO2 [Moles/Vol] 25 mmol/L Normal 22-30 Comment on above: Order Comment: Speci men Type: BLOOD SPECIMENOrdering Facility: [facility] Address: [address] [place] [address] Performed By: #### 2 4321-2 ####[facility]ORATORYCLIA [id number] [place] [address] [place] Creatinine [Mass/Vol] 1.03 mg/dL High 0.58-0.[address] [facility] Comment on above: Order Comment: Speci men Type: BLOOD SPECIMENOrdering Facility: [facility] Address: [address] [place] [address] Performed By: #### 2 4321-2 ####[facility] LABORATORYCLIA [id number] [place] [address] [place] Creatinine and Glomerular filtration rate.predicted panel (S/P/Bld) 52 mL/min/1.73m??? Low >=60 Comment on above: Order Comment: Fan meade Type: BLOOD SPECIMENOrdering Facility: [facility] Address: [address] [place] [phone] Result Comment: Hilda mated Glomerular Filtration Rate [...] Performed By: #### 2 4321-2 ####[facility] LABORATORYCLIA [id number] [place] [id number] [place] Glucose [Mass/Vol] 200 mg/dL High 74-99 Comment on above: Order Comment: Fan meade Type: BLOOD SPECIMENOrdering Facility: [facility] Address: [address] [place] [address] Result Comment: The [place] [employer] (ADA) provides guidance for cutoff [...] Standards of Medical Care in Diabetes 2016, [place]. Diabetes Care. 2016.39(Suppl 1). Performed By: #### 2 4321-2 ####[facility]ATORYCLIA [id number] [place] [id number] [place] Potassium [Moles/Vol] 4.7 mmol/L Normal 3.7-5.[address] [facility] Comment on above: Order Comment: Fan meade Type: BLOOD SPECIMENOrdering Facility: [facility] Address: [address] [place] [id number] Performed By: #### 2 4321-2 ####[facility]ORATORYCLIA [id number] [place] [address] [place] Sodium [Moles/Vol] 128 mmol/L Low 136-144 Comment on above: Order Comment: Speci men Type: BLOOD SPECIMENOrdering Facility: [facility] Address: [address] [place] [address] Performed By: #### 2 4321-2 ####[facility] LABORATORYCLIA [id number] [place] [address] [place] Urea nitrogen [Mass/Vol] 36 mg/dL High 7-21 Comment on above: Order Comment: Speci men Type: BLOOD SPECIMENOrdering Facility: [facility] Address: [facility] [place] [address] Performed By: #### 2 4321-2 ####[facility] LABORATORYCLIA [id number] [place] [address] [place] Anion gap [Moles/Vol] 12 mmol/L Normal 8-[address] [facility] Comment on above: Order Comment: Speci men Type: BLOOD SPECIMENOrdering Facility: [facility] Address: [facility] [place] [address] Performed By: #### 1 9123-9, 35135-5, 00097-6, 30807-3, 62578-8 ####[facility]ORATORYCLIA [id number] [place] [address] [place] Calcium [Mass/Vol] 9.4 mg/dL Normal 8.5-10.2 Comment on above: Order Comment: Speci men Type: BLOOD SPECIMENOrdering Facility: [facility] Address: [address] [place] [address] Performed By: #### 1 9123-9, 99235-0, 70911-4, 41011-0, 43403-8 ####[facility]ORATORYCLIA [id number] [place] [address] [place] Chloride [Moles/Vol] 92 mmol/L Low 98-107 [facility] Comment on above: Order Comment: Speci men Type: BLOOD SPECIMENOrdering Facility: [facility] Address: [address] [place] [address] Performed By: #### 1 9123-9, 79985-7, 39768-3, 04928-5, 20347-1 ####[facility]ORATORYCLIA [id number] [address] [place] CO2 [Moles/Vol] 25 mmol/L Normal 22-30 Comment on above: Order Comment: Speci men Type: BLOOD SPECIMENOrdering Facility: [facility] Address: [address] [place] [address] Performed By: #### 1 9123-9, 45558-6, 09868-3, 24128-9, 42789-2 ####[facility]ORYCLIA [id number] [address] Creatinine [Mass/Vol] 0.95 mg/dL Normal 0.58-0.[address] [facility] Comment on above: Order Comment: Speci men Type: BLOOD SPECIMENOrdering Facility: [facility] Address: [address] [place] [address] Performed By: #### 1 9123-9, 70411-3, 43886-2, 60856-1, 04244-3 ####[facility]ORYCLIA [id number] [address] Creatinine and Glomerular filtration rate.predicted panel (S/P/Bld) 58 mL/min/1.73m??? Low >=60 Comment on above: Order Comment: Fan [facility] Type: BLOOD SPECIMENOrdering Facility: [facility] Address: [address] [place] [address] Result Comment: Hilda mated Glomerular Filtration Rate [...] actual GFR. Performed By: #### 1 9123-9, 35420-1, 76806-7, 66918-8, 24856-3 ####[facility]ORATORYCLIA [id number] [place] [address] [place] Glucose [Mass/Vol] 230 mg/dL High 74-99 Comment on above: Order Comment: Katei men Type: BLOOD SPECIMENOrdering Facility: [facility] Address: [address] [place] [address] Result Comment: The [place] Diabetes [employer] (ADA) provides guidance for cutoff [...] Standards of Medical Care in Diabetes 2016, [place] [employer]. Diabetes Care. 2016.39(Suppl 1). Performed By: #### 1 9123-9, 47383-9, 19104-4, 08584-3, 51515-8 ####[facility]ATORYCLIA [id number] [place] [address] [place] Potassium [Moles/Vol] 4.7 mmol/L Normal 3.7-5.[address] [facility] Comment on above: Order Comment: Katei men Type: BLOOD SPECIMENOrdering Facility: [facility] Address: [address] [place] [address] Performed By: #### 1 9123-9, 66182-0, 65819-8, 32340-0, 75321-1 ####[facility]ATORYCLIA [id number] [place] [id number] [place] Sodium [Moles/Vol] 129 mmol/L Low 136-144 Comment on above: Order Comment: Katei men Type: BLOOD SPECIMENOrdering Facility: [facility] Address: [address] [place] [address] Performed By: #### 1 9123-9, 77789-7, 39359-7, 55568-2, 25013-6 ####[facility]ORATORYCLIA [id number] [place] [address] [place] Urea nitrogen [Mass/Vol] 36 mg/dL High - Comment on above: Order Comment: Speci men Type: BLOOD SPECIMENOrdering Facility: [facility] Address: [address] [place] [address] Performed By: #### 1 9123-9, 38203-3, 59404-6, 01958-2, 08917-7 ####[facility]ORATORYCLIA [id number] [address] [place] CBC W Auto Differential pane l (Bld)on 12-01-2024 Basophils (Bld) [#/Vol] 0.06 10*3/uL Normal <0.11 Comment on above: Order Comment: Speci men Type: BLOOD SPECIMENOrdering Facility: [facility] Address: [address] [place] [address] Performed By: #### 5 7021-8 ####[facility] LABORATORYCLIA [id number] [place] [address] [place] Basophils/100 WBC (Bld) 0.3 % Normal [facility] Comment on above: Order Comment: Speci men Type: BLOOD SPECIMENOrdering Facility: [facility] Address: [address] [place] [address] Performed By: #### 5 7021-8 ####[facility]ORATORYCLIA [id number] [address] Differential cell count method Nom (Bld) Auto Normal Comment on above: Order Comment: Speci men Type: BLOOD SPECIMENOrdering Facility: [facility] Address: [address] [place] [address] Performed By: #### 5 7021-8 ####[facility]ORATORYCLIA [id number] [place] [address] [place] Eosinophils (Bld) [#/Vol] 0.20 10*3/uL Normal <0.46 Comment on above: Order Comment: Speci men Type: BLOOD SPECIMENOrdering Facility: [facility] Address: [address] [place] [address] Performed By: #### 5 7021-8 ####[facility]ORATORYCLIA [id number] [place] [address] [place] Eosinophils/100 WBC (Bld) 0.9 % Normal Comment on above: Order Comment: Speci men Type: BLOOD SPECIMENOrdering Facility: [facility] Address: [address] [place] [address] Performed By: #### 5 7021-8 ####[facility] LABORATORYCLIA [id number] [address] [place] Erythrocyte distribution width (RBC) [Ratio] 15.9 % High 11.5-15.0 Comment on above: Order Comment: Speci men Type: BLOOD SPECIMENOrdering Facility: [facility] Address: [address] [place] [address] Performed By: #### 5 7021-8 ####[facility]ORATORYCLIA [id number] [place] [address] [place] Hematocrit (Bld) [Volume fraction] 26.6 % Low 36.0-46.0 Comment on above: Order Comment: Speci men Type: BLOOD SPECIMENOrdering Facility: [facility] Address: [address] [place] [address] Performed By: #### 5 7021-8 ####[facility]ORATORYCLIA [id number] [place] [address] [place] Hemoglobin (Bld) [Mass/Vol] 8.8 g/dL Low 11.5-15.5 Comment on above: Order Comment: Speci men Type: BLOOD SPECIMENOrdering Facility: [facility] Address: [address] [place] [address] Performed By: #### 5 7021-8 ####[facility]ORATORYCLIA [id number] [address] [place] Immature granulocytes (Bld) [#/Vol] 0.32 10*3/uL High <0.10 Comment on above: Order Comment: Speci men Type: BLOOD SPECIMENOrdering Facility: [facility] Address: [address] [place] [address] Performed By: #### 5 7021-8 ####[facility]ORATORYCLIA [id number] [address] Immature granulocytes/100 WBC (Bld) 1.4 % Normal Comment on above: Order Comment: Speci men Type: BLOOD SPECIMENOrdering Facility: [facility] Address: [address] [place] [address] Performed By: #### 5 7021-8 ####[facility]ORATORYCLIA [id number] [address] Lymphocytes (Bld) [#/Vol] 1.00 10*3/uL Normal 1.00-4.00 Comment on above: Order Comment: Speci men Type: BLOOD SPECIMENOrdering Facility: [facility] Address: [address] [place] [address] Performed By: #### 5 7021-8 ####[facility] LABORATORYCLIA [id number] [address] Lymphocytes/100 WBC (Bld) 4.5 % Normal Comment on above: Order Comment: Speci men Type: BLOOD SPECIMENOrdering Facility: [facility] Address: [address] [place] [address] Performed By: #### 5 7021-8 ####[facility] LABORATORYCLIA [id number] [address] MCH (RBC) [Entitic mass] 28.3 pg Normal 26.0-34.0 Comment on above: Order Comment: Speci men Type: BLOOD SPECIMENOrdering Facility: [facility] Address: [address] [place] [address] Performed By: #### 5 7021-8 ####[facility] LABORATORYCLIA [id number] [address] MCHC (RBC) [Mass/Vol] 33.1 g/dL Normal 30.5-36.[address] [facility] Comment on above: Order Comment: Speci men Type: BLOOD SPECIMENOrdering Facility: [facility] Address: [address] [place] [address] Performed By: #### 5 7021-8 ####[facility] LABORATORYCLIA [id number] [place] [address] [place] MCV (RBC) [Entitic vol] 85.5 fL Normal 80.0-100.0 [facility] Comment on above: Order Comment: Speci men Type: BLOOD SPECIMENOrdering Facility: [facility] Address: [address] [place] [address] Performed By: #### 5 7021-8 ####[facility] LABORATORYCLIA [id number] [place] [address] [place] Monocytes (Bld) [#/Vol] 1.18 10*3/uL High <0.87 Comment on above: Order Comment: Speci men Type: BLOOD SPECIMENOrdering Facility: [facility] Address: [address] [place] [address] Performed By: #### 5 7021-8 ####[facility] LABORATORYCLIA [id number] [address] [place] Monocytes/100 WBC (Bld) 5.3 % Normal [facility] Comment on above: Order Comment: Speci men Type: BLOOD SPECIMENOrdering Facility: [facility] Address: [address] [place] [address] Performed By: #### 5 7021-8 ####[facility] LABORATORYCLIA [id number] [place] [address] [place] Neutrophils (Bld) [#/Vol] 19.49 10*3/uL High 1.45-7.50 Comment on above: Order Comment: Speci men Type: BLOOD SPECIMENOrdering Facility: [facility] Address: [address] [place] [address] Performed By: #### 5 7021-8 ####[facility] LABORATORYCLIA [id number] [place] [address] [place] Neutrophils/100 WBC (Bld) 87.6 % Normal Comment on above: Order Comment: Speci men Type: BLOOD SPECIMENOrdering Facility: [facility] Address: [address] [place] [address] Performed By: #### 5 7021-8 ####[facility] LABORATORYCLIA [id number] [place] [address] [place] Nucleated RBC (Bld) [#/Vol] 10*3/uL Normal <0.01 Comment on above: Order Comment: Speci men Type: BLOOD SPECIMENOrdering Facility: [facility] Address: [address] [place] [address] Performed By: #### 5 7021-8 ####[facility] LABORATORYCLIA [id number] [address] [place] Nucleated RBC/100 WBC (Bld) [Ratio] 0.0 /100 WBC Normal Comment on above: Order Comment: Speci men Type: BLOOD SPECIMENOrdering Facility: [facility] Address: [address] [place] [address] Performed By: #### 5 7021-8 ####[facility] LABORATORYCLIA [id number] [place] [address] [place] Platelet mean volume (Bld) [Entitic vol] 8.7 fL Low 9.0-12.7 Comment on above: Order Comment: Speci men Type: BLOOD SPECIMENOrdering Facility: [facility] Address: [address] [place] [address] Performed By: #### 5 7021-8 ####[facility] LABORATORYCLIA [id number] [place] [address] [place] Platelets (Bld) [#/Vol] 435 10*3/uL High 150-400 Comment on above: Order Comment: Speci men Type: BLOOD SPECIMENOrdering Facility: [facility] Address: [address] [place] [address] Performed By: #### 5 7021-8 ####[facility] LABORATORYCLIA [id number] [place] [address] [place] RBC (Bld) [#/Vol] 3.11 10*6/uL Low 3.90-5.20 [facility] Comment on above: Order Comment: Speci men Type: BLOOD SPECIMENOrdering Facility: [facility] Address: [address] [place], [place] [address] Performed By: #### 5 7021-8 ####[facility]ORATORYCLIA [id number] [address] [place] WBC (Bld) [#/Vol] 22.25 10*3/uL High 3.70-11.00 [facility] Comment on above: Order Comment: Speci men Type: BLOOD SPECIMENOrdering Facility: [facility] Address: [address] [place] [address] Performed By: #### 5 7021-8 ####[facility] LABORATORYCLIA [id number] [address] CONSULT PROGon 12-01-2024 CONSULT PROG [facility] CONSULT PROG Normal CT ABD/PEL W IVCONon 025 CT ABD/PEL W IVCON [facility] ECG COMPLETEon 12-01-2024 ECG COMPLETE [facility] Hepatic function 2000 panelo n 12-01-2024 Albumin [Mass/Vol] 2.7 g/dL Low 3.9-4.9 Comment on above: Order Comment: Speci men Type: BLOOD SPECIMENOrdering Facility: [facility] Address: [address] [place] [address] Performed By: #### 1 9123-9, 40194-6, 00014-2, 39330-5, 47536-0 ####[facility] LABORATORYCLIA [id number] [place] [id number] [facility] ALP [Catalytic activity/Vol] 79 U/L Normal 34-123 Comment on above: Order Comment: Speci men Type: BLOOD SPECIMENOrdering Facility: [facility] Address: [address] [place] [id number] Performed By: #### 1 9123-9, 66772-3, 00868-3, 53899-6, 37690-3 ####[facility] LABORATORYCLIA [id number] [place] [address] [place] ALT [Catalytic activity/Vol] U/L Low 7-38 Comment on above: Order Comment: Speci men Type: BLOOD SPECIMENOrdering Facility: [facility] Address: [address] [place] [address] Performed By: #### 1 9123-9, 57200-1, 88321-5, 36380-6, 93586-2 ####[facility] LABORATORYCLIA [id number] [address] AST [Catalytic activity/Vol] 20 U/L Normal 13-35 Comment on above: Order Comment: Speci men Type: BLOOD SPECIMENOrdering Facility: [facility] Address: [address] [place] [address] Performed By: #### 1 9123-9, 08920-7, 62678-2, 57174-9, 76730-9 ####[facility] LABORATORYCLIA [id number] [address] [facility] Bilirubin [Mass/Vol] 0.2 mg/dL Normal 0.2-1.3 [facility] Comment on above: Order Comment: Speci men Type: BLOOD SPECIMENOrdering Facility: [facility] Address: [address] [place] [address] Performed By: #### 1 9123-9, 06969-0, 47210-9, 64007-1, 18507-9 ####[facility]ORATORYCLIA [id number] [address] Bilirubin.conjugated [Mass/Vol] mg/dL Normal <0.3 Comment on above: Order Comment: Speci men Type: BLOOD SPECIMENOrdering Facility: [facility] Address: [address] [place] [address] Performed By: #### 1 9123-9, 04387-1, 93477-3, 92591-7, 47627-3 ####[facility]ORATORYCLIA [id number] [place] [address] [place] Protein [Mass/Vol] 5.9 g/dL Low 6.3-8.0 Comment on above: Order Comment: Speci men Type: BLOOD SPECIMENOrdering Facility: [facility] Address: [address] [place] [address] Performed By: #### 1 9123-9, 47065-6, 38834-0, 76481-7, 44294-8 ####[facility]ORATORYCLIA [id number] [address] [place] MRI ANKLE WO IVCON LTon - MRI ANKLE WO IVCON LT Normal [facility] MRI FOOT/TOES WO IVCON LTon 12-01-2024 MRI FOOT/TOES WO IVCON LT Normal Magnesium SerPl-mCncon 12-01 Magnesium [Mass/Vol] 2.3 mg/dL Normal 1.7-2.3 [facility] Comment on above: Order Comment: Speci men Type: BLOOD SPECIMENOrdering Facility: [facility] Address: [address] [place] [address] Performed By: #### 1 9123-9, 85810-6, 63977-0, 82891-7, 59314-1 ####[facility]ORATORYCLIA [id number] [address] [facility] NT-proBNP SerPl-mCncon 12-01 Natriuretic peptide.B prohormone N-Terminal [Mass/Vol] 1162 pg/mL High <450 Comment on above: Order Comment: Speci men Type: BLOOD SPECIMENOrdering Facility: [facility] Address: [address] [place] [address] Performed By: #### 1 9123-9, 37941-9, 23397-4, 50303-6, 45473-5 ####[facility]ORATORYCLIA [id number] [address] [place] Procalcitonin SerPl-mCncon 0 12-01-2024 Procalcitonin [Mass/Vol] 0.24 ng/mL High <0.09 Comment on above: Order Comment: Speci men Type: BLOOD SPECIMENOrdering Facility: [facility] Address: [address] [place] [address] Result Comment: For a guided interpretation of test results, please visit the Change in Procalcitonin Calculator, [email or web address]. Performed By: #### 1 9123-9, 60598-7, 07058-9, 34120-1, 02158-1 ####[facility]ORATORYCLIA [id number] [place] [address] [place] SEPSIS LACTATEon 12-01-2024 Lactate [Moles/Vol] 1.5 mmol/L Normal 0.5-2.0 [facility] Comment on above: Order Comment: Speci men Type: BLOOD SPECIMENOrdering Facility: [facility] Address: [address] [place] [address] Performed By: #### S LACT ####[facility] LABORATORYCLIA [id number] [place] [address] [place] Sodium ?Tm Ur-sCncon 025 Sodium Unsp time (U) [Moles/Vol] 39 mmol/L Normal 14-216 Comment on above: Order Comment: Speci men Type: URINE SPECIMENOrdering Facility: [facility] Address: [address] [place] [address] Performed By: #### 3 5678-2 ####[facility] LABCLIA [id number] [facility] [id number] [place] [address] [place] URINALYSIS, REFLEX MICROSCOP ICon 12-01-2024 Bacteria LM.HPF (Urine sed) [#/Area] Few Abnormal None Seen Comment on above: Order Comment: Speci men Type: URINE SPECIMENOrdering Facility: [facility] Address: [address] [place] [address] Performed By: #### L [id number] ####[facility] LABORATORYCLIA [id number] [place] [address] [place] Bilirubin Ql (U) Negative Normal Negative Comment on above: Order Comment: Speci men Type: URINE SPECIMENOrdering Facility: [facility] Address: [address] [place] [address] Performed By: #### L [id number] ####[facility] LABORATORYCLIA [id number] [address] Clarity (Unsp spec) Clear Normal Clear [facility] Comment on above: Order Comment: Speci men Type: URINE SPECIMENOrdering Facility: [facility] Address: [address] [place] [address] Performed By: #### L [id number] ####[facility] LABORATORYCLIA [id number] [address] [place] Color (U) Yellow Normal Yellow Comment on above: Order Comment: Speci men Type: URINE SPECIMENOrdering Facility: [facility] Address: [address] [place] [address] Performed By: #### L [id number] ####[facility] LABORATORYCLIA [id number] [address] Epithelial cells LM.HPF (Urine sed) [#/Area] Few Normal Comment on above: Order Comment: Speci men Type: URINE SPECIMENOrdering Facility: [facility] Address: [address] [place] [address] Performed By: #### L [id number] ####[facility] LABORATORYCLIA [id number] [address] Glucose Test strip (U) [Mass/Vol] Trace Abnormal Negative Comment on above: Order Comment: Speci men Type: URINE SPECIMENOrdering Facility: [facility] Address: [address] [place] [address] Performed By: #### L [id number] ####[facility] LABORATORYCLIA [id number] [address] Hemoglobin Ql (U) Negative Normal Negative Comment on above: Order Comment: Speci men Type: URINE SPECIMENOrdering Facility: [facility] Address: [address] [place] [address] Performed By: #### L [id number] ####[facility] LABORATORYCLIA [id number] [address] [place] Ketones Ql (U) Trace Abnormal Negative Comment on above: Order Comment: Speci men Type: URINE SPECIMENOrdering Facility: [facility] Address: [address] [place] [address] Performed By: #### L [id number] ####[facility]ORATORYCLIA [id number] [address] Leukocyte esterase Test strip Ql (U) Trace Abnormal Negative Comment on above: Order Comment: Speci men Type: URINE SPECIMENOrdering Facility: [facility] Address: [address] [place] [address] Performed By: #### L [id number] ####[facility] LABORATORYCLIA [id number] [address] STATES [facility] Nitrite Ql (U) Negative Normal Negative Comment on above: Order Comment: Speci men Type: URINE SPECIMENOrdering Facility: [facility] Address: [address] [place] [address] Performed By: #### L [id number] ####[facility] LABORATORYCLIA [id number] [place] [address] [place] pH (U) 5.5 [pH] Normal 5.0-8.0 Comment on above: Order Comment: Speci men Type: URINE SPECIMENOrdering Facility: [facility] Address: [address] [place] [address] Performed By: #### L [id number] ####[facility] LABORATORYCLIA [id number] [address] [place] Protein (U) [Mass/Vol] 2+ Abnormal Negative [facility] Comment on above: Order Comment: Speci men Type: URINE SPECIMENOrdering Facility: [facility] Address: [address] [place] [address] Performed By: #### L [id number] ####[facility] LABORATORYCLIA [id number] [place] [address] [place] RBC LM.HPF (Urine sed) [#/Area] 0-3 /HPF Normal 0-3 /HPF Comment on above: Order Comment: Speci men Type: URINE SPECIMENOrdering Facility: [facility] Address: [address] [place] [address] Performed By: #### L [id number] ####[facility] LABORATORYCLIA [id number] [address] [place] Specific gravity (U) [Rel density] 1.025 Normal 1.005-1.030 Comment on above: Order Comment: Speci men Type: URINE SPECIMENOrdering Facility: [facility] Address: [address] [place] [address] Performed By: #### L [id number] ####[facility] LABORATORYCLIA [id number] [place] [address] [place] [facility] [place] Urobilinogen Ql (U) 0.2 EU/dL Normal 0.2-1.0 EU/dL Comment on above: Order Comment: Speci men Type: URINE SPECIMENOrdering Facility: [facility] Address: [address] [place] [address] Performed By: #### L [id number] ####[facility] LABORATORYCLIA [id number] [place] [address] [place] WBC LM.HPF (Urine sed) [#/Area] 6-10 /HPF Abnormal 0-5 /HPF Comment on above: Order Comment: Speci men Type: URINE SPECIMENOrdering Facility: [facility] Address: [address] [place] [address] Performed By: #### L [id number] ####[facility] LABORATORYCLIA [id number] [address] [place] Yeast.budding LM.HPF (Urine sed) [#/Area] Few Abnormal None Seen Comment on above: Order Comment: Speci men Type: URINE SPECIMENOrdering Facility: [facility] Address: [address] [place] [address] Performed By: #### L [id number] ####[facility] LABORATORYCLIA [id number] [place] [address] [place] ALLIED HEALTHon 11-30-2024 ALLIED HEALTH Normal [facility] Bacteria Bld Culton 11-30-19 Bacteria identified Cx Nom (Bld) CULTURE, BLOOD: No growth 5 days Normal Comment on above: Performed By: #### 6 00-7 ####[facility] LABCLIA [id number] [place] [address] [place] Bacteria identified Cx Nom (Bld) CULTURE, BLOOD: No growth 5 days Normal Comment on above: Performed By: #### 6 00-7 ####[facility] LABCLIA [id number] [place] [address] [place] Basic metabolic 2000 panelon 11-30-2024 Anion gap [Moles/Vol] 12 mmol/L Normal 8-[address] [facility] Comment on above: Order Comment: Speci men Type: BLOOD SPECIMENOrdering Facility: [facility] Address: [address] [place] [address] Performed By: #### 2 4320-2, ####[facility] LABORATORYCLIA [id number] [place] [address] [place] Calcium [Mass/Vol] 9.1 mg/dL Normal 8.5-10.2 Comment on above: Order Comment: Speci men Type: BLOOD SPECIMENOrdering Facility: [facility] Address: [address] [place] [address] Performed By: #### 2 4321-2, ####[facility] LABORATORYCLIA [id number] [place] [id number] [place] Chloride [Moles/Vol] 95 mmol/L Low 98-107 [facility] Comment on above: Order Comment: Speci men Type: BLOOD SPECIMENOrdering Facility: [facility] Address: [address] [place] [address] Performed By: #### 2 4321-2, ####[facility] LABORATORYCLIA [id number] [place] [id number] [place] CO2 [Moles/Vol] 25 mmol/L Normal 22-30 Comment on above: Order Comment: Speci men Type: BLOOD SPECIMENOrdering Facility: [facility] Address: [address] [place] [address] Performed By: #### 2 4321-2, ####[facility] LABORATORYCLIA [id number] [place] [id number] [place] Creatinine [Mass/Vol] 0.86 mg/dL Normal 0.58-0.[address] [facility] Comment on above: Order Comment: Fan halina Type: BLOOD SPECIMENOrdering Facility: [facility] Address: [address] [place] [address] Performed By: #### 2 4321-2, ####[facility] LABORATORYCLIA [id number] [place] [id number] [facility] Creatinine and Glomerular filtration rate.predicted panel (S/P/Bld) 65 mL/min/1.73m??? Normal >=60 Comment on above: Order Comment: Fan halina Type: BLOOD SPECIMENOrdering Facility: [facility] Address: [address] [place] [address] Result Comment: Hilda mated Glomerular Filtration Rate [...] Performed By: #### 2 4321-2, ####[facility] LABORATORYCLIA [id number] [place] [id number] [place] Glucose [Mass/Vol] 237 mg/dL High 74-99 Comment on above: Order Comment: Fan meade Type: BLOOD SPECIMENOrdering Facility: [facility] Address: [address] [place] [address] Result Comment: The [place] (ADA) provides guidance for cutoff [...] Standards of Medical Care in Diabetes 2016, [place]. Diabetes Care. 2016.39(Suppl 1). Performed By: #### 2 4320-2, ####[facility] LABORATORYCLIA [id number] [place] [address] [place] Potassium [Moles/Vol] 4.2 mmol/L Normal 3.7-5.[address] [facility] Comment on above: Order Comment: Fan meade Type: BLOOD SPECIMENOrdering Facility: [facility] Address: [address] [place] [address] Performed By: #### 2 4320-12, ####[facility] LABORATORYCLIA [id number] [address] [place] Sodium [Moles/Vol] 132 mmol/L Low 136-144 Comment on above: Order Comment: Fan meade Type: BLOOD SPECIMENOrdering Facility: [facility] Address: [address] [place] [address] Performed By: #### 2 4320-12, ####[facility] LABORATORYCLIA [id number] [place] [address] [place] Urea nitrogen [Mass/Vol] 26 mg/dL High 7-21 Comment on above: Order Comment: Fan meade Type: BLOOD SPECIMENOrdering Facility: [facility] Address: [address] [place] [address] Performed By: #### 2 4320-12, ####[facility] LABORATORYCLIA [id number] [address] [place] CASE MANAGEMon 11-30-2024 CASE MANAGEM Normal CASE MANAGEM [facility] CBC W Auto Differential pane l (Bld)on 11-30-2024 Basophils (Bld) [#/Vol] 0.05 10*3/uL Normal <0.11 Comment on above: Order Comment: Speci men Type: BLOOD SPECIMENOrdering Facility: [facility] Address: [address] [place] [address] Performed By: #### 5 7021-8 ####[facility] LABORATORYCLIA [id number] [place] [address] [place] Basophils/100 WBC (Bld) 0.3 % Normal [facility] Comment on above: Order Comment: Speci men Type: BLOOD SPECIMENOrdering Facility: [facility] Address: [address] [place] [address] Performed By: #### 5 7021-8 ####[facility] LABORATORYCLIA [id number] [place] [address] [place] Differential cell count method Nom (Bld) Auto Normal Comment on above: Order Comment: Speci men Type: BLOOD SPECIMENOrdering Facility: [facility] Address: [address] [place] [address] Performed By: #### 5 7021-8 ####[facility] LABORATORYCLIA [id number] [place] [address] [place] Eosinophils (Bld) [#/Vol] 0.27 10*3/uL Normal <0.46 Comment on above: Order Comment: Speci men Type: BLOOD SPECIMENOrdering Facility: [facility] Address: [address] [place] [address] Performed By: #### 5 7021-8 ####[facility] LABORATORYCLIA [id number] [place] [address] [place] Eosinophils/100 WBC (Bld) 1.8 % Normal Comment on above: Order Comment: Speci men Type: BLOOD SPECIMENOrdering Facility: [facility] Address: [address] [place] [address] Performed By: #### 5 7021-8 ####[facility] LABORATORYCLIA [id number] [place] [address] [place] Erythrocyte distribution width (RBC) [Ratio] 15.6 % High 11.5-15.0 Comment on above: Order Comment: Speci men Type: BLOOD SPECIMENOrdering Facility: [facility] Address: [address] [place] [address] Performed By: #### 5 7021-8 ####[facility] LABORATORYCLIA [id number] [place] [address] [place] Hematocrit (Bld) [Volume fraction] 29.9 % Low 36.0-46.0 Comment on above: Order Comment: Speci men Type: BLOOD SPECIMENOrdering Facility: [facility] Address: [address] [place] [address] Performed By: #### 5 7021-8 ####[facility] LABORATORYCLIA [id number] [place] [address] [place] Hemoglobin (Bld) [Mass/Vol] 9.9 g/dL Low 11.5-15.5 Comment on above: Order Comment: Speci men Type: BLOOD SPECIMENOrdering Facility: [facility] Address: [address] [place] [address] Performed By: #### 5 7021-8 ####[facility] LABORATORYCLIA [id number] [place] [address] [place] Immature granulocytes (Bld) [#/Vol] 0.24 10*3/uL High <0.10 Comment on above: Order Comment: Speci men Type: BLOOD SPECIMENOrdering Facility: [facility] Address: [address] [place] [address] Performed By: #### 5 7021-8 ####[facility] LABORATORYCLIA [id number] [place] [address] [place] Immature granulocytes/100 WBC (Bld) 1.6 % Normal Comment on above: Order Comment: Speci men Type: BLOOD SPECIMENOrdering Facility: [facility] Address: [address] [place] [address] Performed By: #### 5 7021-8 ####[facility] LABORATORYCLIA [id number] [place] [address] [place] Lymphocytes (Bld) [#/Vol] 0.92 10*3/uL Low 1.00-4.00 Comment on above: Order Comment: Speci men Type: BLOOD SPECIMENOrdering Facility: [facility] Address: [address] [place] [address] Performed By: #### 5 7021-8 ####[facility] LABORATORYCLIA [id number] [address] Lymphocytes/100 WBC (Bld) 6.1 % Normal Comment on above: Order Comment: Speci men Type: BLOOD SPECIMENOrdering Facility: [facility] Address: [address] [place] [address] Performed By: #### 5 7021-8 ####[facility] LABORATORYCLIA [id number] [address] STATES [facility] MCH (RBC) [Entitic mass] 28.3 pg Normal 26.0-34.0 Comment on above: Order Comment: Speci men Type: BLOOD SPECIMENOrdering Facility: [facility] Address: [address] [place] [address] Performed By: #### 5 7021-8 ####[facility] LABORATORYCLIA [id number] [address] [place] MCHC (RBC) [Mass/Vol] 33.1 g/dL Normal 30.5-36.[address] [facility] Comment on above: Order Comment: Speci men Type: BLOOD SPECIMENOrdering Facility: [facility] Address: [address] [place] [address] Performed By: #### 5 7021-8 ####[facility] LABORATORYCLIA [id number] [address] STATES [facility] MCV (RBC) [Entitic vol] 85.4 fL Normal 80.0-100.0 M [facility] Comment on above: Order Comment: Speci men Type: BLOOD SPECIMENOrdering Facility: [facility] Address: [address] [place] [address] Performed By: #### 5 7021-8 ####[facility] LABORATORYCLIA [id number] [address] [place] Monocytes (Bld) [#/Vol] 0.99 10*3/uL High <0.87 Comment on above: Order Comment: Speci men Type: BLOOD SPECIMENOrdering Facility: [facility] Address: [address] [place] [address] Performed By: #### 5 7021-8 ####[facility] LABORATORYCLIA [id number] [place] [address] [place] Monocytes/100 WBC (Bld) 6.6 % Normal [facility] Comment on above: Order Comment: Speci men Type: BLOOD SPECIMENOrdering Facility: [facility] Address: [address] [place] [address] Performed By: #### 5 7021-8 ####[facility] LABORATORYCLIA [id number] [place] [address] [place] Neutrophils (Bld) [#/Vol] 12.52 10*3/uL High 1.45-7.50 Comment on above: Order Comment: Speci men Type: BLOOD SPECIMENOrdering Facility: [facility] Address: [address] [place] [address] Performed By: #### 5 7021-8 ####[facility] LABORATORYCLIA [id number] [address] [place] Neutrophils/100 WBC (Bld) 83.6 % Normal Comment on above: Order Comment: Speci men Type: BLOOD SPECIMENOrdering Facility: [facility] Address: [address] [place] [address] Performed By: #### 5 7021-8 ####[facility] LABORATORYCLIA [id number] [place] [address] [place] Nucleated RBC (Bld) [#/Vol] 10*3/uL Normal <0.01 Comment on above: Order Comment: Speci men Type: BLOOD SPECIMENOrdering Facility: [facility] Address: [address] [place] [address] Performed By: #### 5 7021-8 ####[facility] LABORATORYCLIA [id number] [place] [address] [place] Nucleated RBC/100 WBC (Bld) [Ratio] 0.0 /100 WBC Normal Comment on above: Order Comment: Speci men Type: BLOOD SPECIMENOrdering Facility: [facility] Address: [address] [place] [address] Performed By: #### 5 7021-8 ####[facility] LABORATORYCLIA [id number] [place] [address] [place] Platelet mean volume (Bld) [Entitic vol] 8.6 fL Low 9.0-12.7 Comment on above: Order Comment: Speci men Type: BLOOD SPECIMENOrdering Facility: [facility] Address: [address] [place] [address] Performed By: #### 5 7021-8 ####[facility] LABORATORYCLIA [id number] [place] [address] [place] Platelets (Bld) [#/Vol] 436 10*3/uL High 150-400 Comment on above: Order Comment: Speci men Type: BLOOD SPECIMENOrdering Facility: [facility] Address: [address] [place] [address] Performed By: #### 5 7021-8 ####[facility] LABORATORYCLIA [id number] [place] [address] [place] RBC (Bld) [#/Vol] 3.50 10*6/uL Low 3.90-5.20 [facility] Comment on above: Order Comment: Speci men Type: BLOOD SPECIMENOrdering Facility: [facility] Address: [address] [place] [address] Performed By: #### 5 7021-8 ####[facility] LABORATORYCLIA [id number] [place] [address] [place] WBC (Bld) [#/Vol] 14.99 10*3/uL High 3.70-11.00 [facility] Comment on above: Order Comment: Speci men Type: BLOOD SPECIMENOrdering Facility: [facility] Address: [address] [place] [address] Performed By: #### 5 7021-8 ####[facility] LABORATORYCLIA [id number] [address] [place] CONSULT PROGon 11-30-2024 CONSULT PROG Normal CONSULT PROG Normal Magnesium SerPl-mCncon 11-30 Magnesium [Mass/Vol] 1.6 mg/dL Low 1.7-2.3 [facility] Comment on above: Order Comment: Speci men Type: BLOOD SPECIMENOrdering Facility: [facility] Address: [address] [place] [address] Performed By: #### 2 4321-2, 44550-2 ####[facility] LABORATORYCLIA [id number] [address] STATES [facility] Urinalysis complete panel (U )on 11-30-2024 Bacteria LM.HPF (Urine sed) [#/Area] Few Abnormal None Seen Comment on above: Order Comment: Speci men Type: URINE SPECIMENOrdering Facility: [facility] Address: [address] [place] [address] Performed By: #### 2 4356-8 ####[facility]ORATORYCLIA [id number] [address] [place] Bilirubin Ql (U) Negative Normal Negative Comment on above: Order Comment: Speci men Type: URINE SPECIMENOrdering Facility: [facility] Address: [address] [place] [address] Performed By: #### 2 4356-8 ####[facility] LABORATORYCLIA [id number] [address] [place] Clarity (Unsp spec) Clear Normal Clear [facility] Comment on above: Order Comment: Speci men Type: URINE SPECIMENOrdering Facility: [facility] Address: [address] [place] [address] Performed By: #### 2 4356-8 ####[facility] LABORATORYCLIA [id number] [address] Color (U) Yellow Normal Yellow Comment on above: Order Comment: Speci men Type: URINE SPECIMENOrdering Facility: [facility] Address: [address] [place] [address] Result Comment: Urin e received in non-preservative tube. Interpret results with caution. To ensure optimal and accurate results, transfer urine to the BD Vacutainer Plus urine preservative tube. Performed By: #### 2 4356-8 ####[facility] LABORATORYCLIA [id number] [address] [place] [facility] Epithelial cells LM.HPF (Urine sed) [#/Area] Few Normal Comment on above: Order Comment: Speci men Type: URINE SPECIMENOrdering Facility: [facility] Address: [address] [place] [address] Performed By: #### 2 4356-8 ####[facility] LABORATORYCLIA [id number] [address] [place] [facility] Glucose Test strip (U) [Mass/Vol] 1+ Abnormal Negative Comment on above: Order Comment: Speci men Type: URINE SPECIMENOrdering Facility: [facility] Address: [address] [place] [address] Performed By: #### 2 4356-8 ####VILL[facility] LABORATORYCLIA [id number] [place] [address] [place] Hemoglobin Ql (U) Negative Normal Negative Comment on above: Order Comment: Speci men Type: URINE SPECIMENOrdering Facility: [facility] [facility] Address: [address] [place] [address] Performed By: #### 2 4356-8 ####[facility] LABORATORYCLIA [id number] [address] [place] Ketones Ql (U) Trace Abnormal Negative Comment on above: Order Comment: Speci men Type: URINE SPECIMENOrdering Facility: [facility] Address: [address] [place] [address] Performed By: #### 2 4356-8 ####[facility] LABORATORYCLIA [id number] [address] Leukocyte esterase Test strip Ql (U) Trace Abnormal Negative Comment on above: Order Comment: Speci men Type: URINE SPECIMENOrdering Facility: [facility] Address: [address] [place] [address] Performed By: #### 2 4356-8 ####[facility] LABORATORYCLIA [id number] [place] [address] [place] Nitrite Ql (U) Negative Normal Negative Comment on above: Order Comment: Speci men Type: URINE SPECIMENOrdering Facility: [facility] Address: [address] [place] [address] Performed By: #### 2 4356-8 ####[facility] LABORATORYCLIA [id number] [address] [place] pH (U) 6.5 [pH] Normal 5.0-8.0 Comment on above: Order Comment: Speci men Type: URINE SPECIMENOrdering Facility: [facility] Address: [address] [place] [address] Performed By: #### 2 4356-8 ####[facility] LABORATORYCLIA [id number] [address] [place] Protein (U) [Mass/Vol] 1+ Abnormal Negative [facility] Comment on above: Order Comment: Speci men Type: URINE SPECIMENOrdering Facility: [facility] Address: [address] [place] [address] Performed By: #### 2 4356-8 ####[facility] LABORATORYCLIA [id number] [address] [place] RBC LM.HPF (Urine sed) [#/Area] 0-3 /HPF Normal 0-3 /HPF Comment on above: Order Comment: Speci men Type: URINE SPECIMENOrdering Facility: [facility] Address: [address] [place] [address] Performed By: #### 2 4356-8 ####[facility] LABORATORYCLIA [id number] [address] Specific gravity (U) [Rel density] 1.010 Normal 1.005-1.030 Comment on above: Order Comment: Speci men Type: URINE SPECIMENOrdering Facility: [facility] Address: [address] [place] [address] Performed By: #### 2 4356-8 ####[facility] LABORATORYCLIA [id number] [place] [address] [place] Urobilinogen Ql (U) 0.2 EU/dL Normal 0.2-1.0 EU/dL Comment on above: Order Comment: Speci men Type: URINE SPECIMENOrdering Facility: [facility] Address: [address] [place] [address] Performed By: #### 2 4356-8 ####[facility] LABORATORYCLIA [id number] [place] [address] [place] WBC LM.HPF (Urine sed) [#/Area] 0-5 /HPF Normal 0-5 /HPF Comment on above: Order Comment: Speci men Type: URINE SPECIMENOrdering Facility: [facility] Address: [address] [place] [address] Performed By: #### 2 4356-8 ####[facility] HOSPITALCLIA [id number] [place] [address] [place] Yeast.budding LM.HPF (Urine sed) [#/Area] Few Abnormal None Seen Comment on above: Order Comment: Speci men Type: URINE SPECIMENOrdering Facility: [facility] Address: [address] [place] [address] Performed By: #### 2 4356-8 ####[facility] LABORATORYCLIA [id number] [place] [address] [place] XR CHEST 1V FRONTAL PORTon 0 11-30-2024 XR CHEST 1V FRONTAL PORT Normal Basic metabolic 2000 panelon 11-29-2024 Anion gap [Moles/Vol] 13 mmol/L Normal 8-[address] [facility] Comment on above: Order Comment: Speci men Type: BLOOD SPECIMENOrdering Facility: [facility] Address: [address] [place] [address] Performed By: #### 2 4321-2, 30529-1 ####[facility] LABORATORYCLIA [id number] [place] [address] [place] Calcium [Mass/Vol] 8.8 mg/dL Normal 8.5-10.2 Comment on above: Order Comment: Speci men Type: BLOOD SPECIMENOrdering Facility: [facility] Address: [address] [place] [address] Performed By: #### 2 4321-2, ####[facility] LABORATORYCLIA [id number] [place] [address] [place] Chloride [Moles/Vol] 95 mmol/L Low 98-107 [facility] Comment on above: Order Comment: Speci men Type: BLOOD SPECIMENOrdering Facility: [facility] Address: [address] [place] [address] Performed By: #### 2 4321-2, ####[facility] LABORATORYCLIA [id number] [place] [address] [place] CO2 [Moles/Vol] 25 mmol/L Normal 22-30 Comment on above: Order Comment: Speci men Type: BLOOD SPECIMENOrdering Facility: [facility] Address: [address] [place] [address] Performed By: #### 2 4321-2, ####[facility] LABORATORYCLIA [id number] [place] [address] [place] Creatinine [Mass/Vol] 0.80 mg/dL Normal 0.58-0.[address] [facility] Comment on above: Order Comment: Speci men Type: BLOOD SPECIMENOrdering Facility: [facility] Address: [address] [place] [address] Performed By: #### 2 4321-2, ####VILL[facility] LABORATORYCLIA [id number] [address] Creatinine and Glomerular filtration rate.predicted panel (S/P/Bld) 71 mL/min/1.73m??? Normal >=60 Comment on above: Order Comment: Speci men Type: BLOOD SPECIMENOrdering Facility: [facility] Address: [address] [place] [address] Result Comment: Hilda mated Glomerular Filtration Rate [...] Performed By: #### 2 43211-15, ####[facility] LABORATORYCLIA [id number] [place] [address] [place] Glucose [Mass/Vol] 287 mg/dL High 74-99 Comment on above: Order Comment: Speci men Type: BLOOD SPECIMENOrdering Facility: [facility] Address: [address] [place] [place] [id number] Result Comment: The [place] [employer] (ADA) provides guidance for cutoff [...] Standards of Medical Care in Diabetes 2016, [place] [employer]. Diabetes Care. 2016.39(Suppl 1). Performed By: #### 2 4320-12, ####V[facility] LABORATORYCLIA [id number] [place] [address] [place] Potassium [Moles/Vol] 4.1 mmol/L Normal 3.7-5.[address] [facility] Comment on above: Order Comment: Fan meade Type: BLOOD SPECIMENOrdering Facility: [facility] Address: [address] [place] [address] Performed By: #### 2 4320-12, ####VILL[facility] LABORATORYCLIA [id number] [place] [address] [place] Sodium [Moles/Vol] 133 mmol/L Low 136-144 Comment on above: Order Comment: Speci men Type: BLOOD SPECIMENOrdering Facility: [facility] Address: [address] [place] [address] Performed By: #### 2 4321-2, ####VILL[facility] LABORATORYCLIA [id number] [place] [address] [place] Urea nitrogen [Mass/Vol] 30 mg/dL High 7-21 Comment on above: Order Comment: Speci men Type: BLOOD SPECIMENOrdering Facility: [facility] Address: [facility] [place] [address] Performed By: #### 2 4321-2, ####V[facility] LABORATORYCLIA [id number] [place] [address] [facility] [place] CASE MANAGEMon 11-29-2024 CASE MANAGEM Normal CASE MANAGEM Normal CBC panel Auto (Bld)on 11-29 Erythrocyte distribution width (RBC) [Ratio] 15.2 % High 11.5-15.0 Comment on above: Order Comment: Speci men Type: BLOOD SPECIMENOrdering Facility: [facility] Address: [address] [place] [address] [place] [address] Performed By: #### 5 8410-2 ####VILALR[facility] LABORATORYCLIA [id number] [place] [address] [place] Hematocrit (Bld) [Volume fraction] 27.9 % Low 36.0-46.0 Comment on above: Order Comment: Speci men Type: BLOOD SPECIMENOrdering Facility: [facility] Address: [facility] [place] [address] Performed By: #### 5 8410-2 ####VILL[facility] LABORATORYCLIA [id number] [place] [id number] [place] Hemoglobin (Bld) [Mass/Vol] 9.3 g/dL Low 11.5-15.5 Comment on above: Order Comment: Speci men Type: BLOOD SPECIMENOrdering Facility: [facility] Address: [address] [place] [address] Performed By: #### 5 8410-2 ####VILL[facility] LABORATORYCLIA [id number] [address] MCH (RBC) [Entitic mass] 28.2 pg Normal 26.0-34.0 Comment on above: Order Comment: Speci men Type: BLOOD SPECIMENOrdering Facility: [facility] Address: [address] [place] [address] Performed By: #### 5 8410-2 ####V[facility] LABORATORYCLIA [id number] [address] [place] MCHC (RBC) [Mass/Vol] 33.3 g/dL Normal 30.5-36.[address] [facility] Comment on above: Order Comment: Speci men Type: BLOOD SPECIMENOrdering Facility: [facility] Address: [address] [place] [address] Performed By: #### 5 8410-2 ####VILL[facility] LABORATORYCLIA [id number] [address] MCV (RBC) [Entitic vol] 84.5 fL Normal 80.0-100.0 [facility] Comment on above: Order Comment: Speci men Type: BLOOD SPECIMENOrdering Facility: [facility] Address: [address] [place] [address] Performed By: #### 5 8410-2 ####V[facility] LABORATORYCLIA [id number] [address] Nucleated RBC (Bld) [#/Vol] 10*3/uL Normal <0.01 Comment on above: Order Comment: Speci men Type: BLOOD SPECIMENOrdering Facility: [facility] Address: [address] [place] [address] Performed By: #### 5 8410-2 ####VILL[facility]RE[facility] LABORATORYCLIA [id number] [address] [place] Platelet mean volume (Bld) [Entitic vol] 8.8 fL Low 9.0-12.7 Comment on above: Order Comment: Speci men Type: BLOOD SPECIMENOrdering Facility: [facility] Address: [address] [place] [address] Performed By: #### 5 8410-2 ####VILLARREAL LABORATORYCLIA [id number] [place] [address] [facility] Platelets (Bld) [#/Vol] 425 10*3/uL High 150-400 Comment on above: Order Comment: Speci men Type: BLOOD SPECIMENOrdering Facility: [facility] Address: [address] [place] [address] Performed By: #### 5 8410-2 ####[facility] LABORATORYCLIA [id number] [place] [address] [place] [facility] [place] RBC (Bld) [#/Vol] 3.30 10*6/uL Low 3.90-5.20 [facility] Comment on above: Order Comment: Speci men Type: BLOOD SPECIMENOrdering Facility: [facility] Address: [address] [place] [address] Performed By: #### 5 8410-2 ####[facility] LABORATORYCLIA [id number] [address] WBC (Bld) [#/Vol] 12.17 10*3/uL High 3.70-11.00 [facility] Comment on above: Order Comment: Speci men Type: BLOOD SPECIMENOrdering Facility: [facility] Address: [address] [place] [address] Performed By: #### 5 8410-2 ####[facility] LABORATORYCLIA [id number] [place] [id number] [facility] CONSULT PROGon 11-29-2024 CONSULT PROG Normal CONSULT PROG Normal Magnesium SerPl-mCncon 11-29 Magnesium [Mass/Vol] 1.4 mg/dL Low 1.7-2.3 [facility] Comment on above: Order Comment: Speci men Type: BLOOD SPECIMENOrdering Facility: [facility] Address: [address] [place] [address] Performed By: #### 2 4321-2, 61774-6 ####V[facility] LABORATORYCLIA [id number] [place] [id number] [facility] [place] Basic metabolic 2000 panelon 11-28-2024 Anion gap [Moles/Vol] 14 mmol/L Normal 8-[address] [facility] Comment on above: Order Comment: Speci men Type: BLOOD SPECIMENOrdering Facility: [facility] Address: [address] [id number] Performed By: #### 2 4321-2, , 2776-11 ####VILL[facility] LABORATORYCLIA [id number] [place] [address] [place] Calcium [Mass/Vol] 9.4 mg/dL Normal 8.5-10.2 Comment on above: Order Comment: Speci men Type: BLOOD SPECIMENOrdering Facility: [facility] Address: [address] [place] [address] Performed By: #### 2 4321-2, , 2776-11 ####V[facility] LABORATORYCLIA [id number] [place] [address] [place] Chloride [Moles/Vol] 96 mmol/L Low 98-107 [facility] Comment on above: Order Comment: Speci men Type: BLOOD SPECIMENOrdering Facility: [facility] Address: [facility] [place] [address] Performed By: #### 2 4321-2, , 2776-11 ####VILL[facility] LABORATORYCLIA [id number] [place] [address] [place] CO2 [Moles/Vol] 25 mmol/L Normal 22-30 Comment on above: Order Comment: Speci men Type: BLOOD SPECIMENOrdering Facility: [facility] Address: [address] [place] [address] Performed By: #### 2 4321-2, , 2776-11 ####V[facility] LABORATORYCLIA [id number] [place] [id number] [place] Creatinine [Mass/Vol] 0.80 mg/dL Normal 0.58-0.[address] [facility] Comment on above: Order Comment: Speci men Type: BLOOD SPECIMENOrdering Facility: [facility] Address: [address] [place] [address] Performed By: #### 2 4321-2, , 2776-11 ####VILLARRE[facility] LABORATORYCLIA [id number] [address] STATES [facility] Creatinine and Glomerular filtration rate.predicted panel (S/P/Bld) 71 mL/min/1.73m??? Normal >=60 Comment on above: Order Comment: Fan meade Type: BLOOD SPECIMENOrdering Facility: [facility] Address: [address] [place] [address] Result Comment: Hilda mated Glomerular Filtration Rate [...] #### 2 4321-2, , 2776-11 ####[facility] LABORATORYCLIA [id number] [address] STATES [facility] Glucose [Mass/Vol] 149 mg/dL High 74-99 Comment on above: Order Comment: Fan meade Type: BLOOD SPECIMENOrdering Facility: [facility] Address: [address] [place] [address] Result Comment: The [place] Diabetes [employer] (ADA) provides guidance for cutoff [...] Standards of Medical Care in Diabetes 2016, [place]. Diabetes Care. 2016.39(Suppl 1). Performed By: #### 2 4321-2, , 2776-11 ####V[facility] LABORATORYCLIA [id number] [place] [id number] [place] Potassium [Moles/Vol] 4.6 mmol/L Normal 3.7-5.[address] [facility] Comment on above: Order Comment: Speci men Type: BLOOD SPECIMENOrdering Facility: [facility] Address: [address] [place] [address] [place] [address] Performed By: #### 2 4321-2, 69443-8, 2776-1 ####V[facility] LABORATORYCLIA [id number] [place] [address] [place] Sodium [Moles/Vol] 135 mmol/L Low 136-144 Comment on above: Order Comment: Speci men Type: BLOOD SPECIMENOrdering Facility: [facility] Address: [address] [place] [address] Performed By: #### 2 4321-2, 72348-7, 2776-11 ####[facility] LABORATORYCLIA [id number] [address] [place] Urea nitrogen [Mass/Vol] 28 mg/dL High 7-21 Comment on above: Order Comment: Speci men Type: BLOOD SPECIMENOrdering Facility: [facility] Address: [address] [place] [address] Performed By: #### 2 4321-2, , 2776-11 ####V[facility] LABORATORYCLIA [id number] [address] [place] CASE MANAGEMon 11-28-2024 CASE MANAGEM Normal CBC W Auto Differential pane l (Bld)on 11-28-2024 Basophils (Bld) [#/Vol] 0.05 10*3/uL Normal <0.11 Comment on above: Order Comment: Speci men Type: BLOOD SPECIMENOrdering Facility: [facility] Address: [address] [place] [address] Performed By: #### 5 7021-8 ####V[facility] LABORATORYCLIA [id number] [address] [place] Basophils/100 WBC (Bld) 0.5 % Normal [facility] Comment on above: Order Comment: Speci men Type: BLOOD SPECIMENOrdering Facility: [facility] Address: [address] [place] [address] Performed By: #### 5 7021-8 ####V[facility] LABORATORYCLIA [id number] [address] Differential cell count method Nom (Bld) Auto Normal Comment on above: Order Comment: Speci men Type: BLOOD SPECIMENOrdering Facility: [facility] Address: [address] [place] [address] Performed By: #### 5 7021-8 ####VILLAR[facility] LABORATORYCLIA [id number] [place] [address] [place] Eosinophils (Bld) [#/Vol] 0.43 10*3/uL Normal <0.46 Comment on above: Order Comment: Speci men Type: BLOOD SPECIMENOrdering Facility: [facility] Address: [address] [place] [address] Performed By: #### 5 7021-8 ####VILLAR[facility] LABORATORYCLIA [id number] [address] [place] Eosinophils/100 WBC (Bld) 3.9 % Normal Comment on above: Order Comment: Speci men Type: BLOOD SPECIMENOrdering Facility: [facility] Address: [address] [place] [address] Performed By: #### 5 7021-8 ####VILLAR[facility] LABORATORYCLIA [id number] [address] [place] Erythrocyte distribution width (RBC) [Ratio] 15.3 % High 11.5-15.0 Comment on above: Order Comment: Speci men Type: BLOOD SPECIMENOrdering Facility: [facility] Address: [address] [place] [address] Performed By: #### 5 7021-8 ####VILLAR[facility] LABORATORYCLIA [id number] [address] [place] Hematocrit (Bld) [Volume fraction] 32.2 % Low 36.0-46.0 Comment on above: Order Comment: Speci men Type: BLOOD SPECIMENOrdering Facility: [facility] Address: [address] [place] [address] Performed By: #### 5 7021-8 ####V[facility] LABORATORYCLIA [id number] [place] [address] [place] Hemoglobin (Bld) [Mass/Vol] 10.4 g/dL Low 11.5-15.5 Comment on above: Order Comment: Speci men Type: BLOOD SPECIMENOrdering Facility: [facility] Address: [address] [place] [address] Performed By: #### 5 7021-8 ####V[facility] LABORATORYCLIA [id number] [place] [address] [place] Immature granulocytes (Bld) [#/Vol] 0.17 10*3/uL High <0.10 Comment on above: Order Comment: Speci men Type: BLOOD SPECIMENOrdering Facility: [facility] Address: [address] [place] [address] Performed By: #### 5 7021-8 ####V[facility] LABORATORYCLIA [id number] [place] [address] [place] Immature granulocytes/100 WBC (Bld) 1.6 % Normal Comment on above: Order Comment: Speci men Type: BLOOD SPECIMENOrdering Facility: [facility] Address: [address] [place] [address] Performed By: #### 5 7021-8 ####[facility] LABORATORYCLIA [id number] [place] [address] [place] Lymphocytes (Bld) [#/Vol] 0.95 10*3/uL Low 1.00-4.00 Comment on above: Order Comment: Speci men Type: BLOOD SPECIMENOrdering Facility: [facility] Address: [address] [place] [address] Performed By: #### 5 7021-8 ####V[facility] LABORATORYCLIA [id number] [place] [address] [place] [facility] [place] Lymphocytes/100 WBC (Bld) 8.7 % Normal Comment on above: Order Comment: Speci men Type: BLOOD SPECIMENOrdering Facility: [facility] Address: [address] [place] [address] Performed By: #### 5 7021-8 ####V[facility] LABORATORYCLIA [id number] [address] MCH (RBC) [Entitic mass] 27.7 pg Normal 26.0-34.0 Comment on above: Order Comment: Speci men Type: BLOOD SPECIMENOrdering Facility: [facility] Address: [address] [place] [address] Performed By: #### 5 7021-8 ####[facility] LABORATORYCLIA [id number] [address] MCHC (RBC) [Mass/Vol] 32.3 g/dL Normal 30.5-36.[address] [facility] Comment on above: Order Comment: Speci men Type: BLOOD SPECIMENOrdering Facility: [facility] Address: [address] [place] [address] Performed By: #### 5 7021-8 ####V[facility] LABORATORYCLIA [id number] [address] MCV (RBC) [Entitic vol] 85.6 fL Normal 80.0-100.0 [facility] Comment on above: Order Comment: Speci men Type: BLOOD SPECIMENOrdering Facility: [facility] Address: [address] [place] [address] Performed By: #### 5 7021-8 ####V[facility] LABORATORYCLIA [id number] [address] Monocytes (Bld) [#/Vol] 0.89 10*3/uL High <0.87 Comment on above: Order Comment: Speci men Type: BLOOD SPECIMENOrdering Facility: [facility] Address: [address] [place] [address] Performed By: #### 5 7021-8 ####[facility] LABORATORYCLIA [id number] [address] Monocytes/100 WBC (Bld) 8.1 % Normal [facility] Comment on above: Order Comment: Speci men Type: BLOOD SPECIMENOrdering Facility: [facility] Address: [address] [place] [address] Performed By: #### 5 7021-8 ####VILLARRE[facility] LABORATORYCLIA [id number] [place] [address] [place] Neutrophils (Bld) [#/Vol] 8.45 10*3/uL High 1.45-7.50 Comment on above: Order Comment: Speci men Type: BLOOD SPECIMENOrdering Facility: [facility] Address: [address] [place] [address] Performed By: #### 5 7021-8 ####VILLARRE[facility] LABORATORYCLIA [id number] [address] [place] Neutrophils/100 WBC (Bld) 77.2 % Normal Comment on above: Order Comment: Speci men Type: BLOOD SPECIMENOrdering Facility: [facility] Address: [address] [place] [address] Performed By: #### 5 7021-8 ####VILLARRE[facility] LABORATORYCLIA [id number] [place] [address] [place] Nucleated RBC (Bld) [#/Vol] 10*3/uL Normal <0.01 Comment on above: Order Comment: Speci men Type: BLOOD SPECIMENOrdering Facility: [facility] Address: [address] [place] [address] Performed By: #### 5 7021-8 ####VILLARRE[facility] LABORATORYCLIA [id number] [address] [place] Nucleated RBC/100 WBC (Bld) [Ratio] 0.0 /100 WBC Normal Comment on above: Order Comment: Speci men Type: BLOOD SPECIMENOrdering Facility: [facility] Address: [address] [place] [address] Performed By: #### 5 7021-8 ####VILLARRE[facility] LABORATORYCLIA [id number] [place] [address] [place] Platelet mean volume (Bld) [Entitic vol] 9.0 fL Normal 9.0-12.7 Comment on above: Order Comment: Speci men Type: BLOOD SPECIMENOrdering Facility: [facility] Address: [address] [place] [address] Performed By: #### 5 7021-8 ####VILLARRE[facility] LABORATORYCLIA [id number] [address] [place] Platelets (Bld) [#/Vol] 413 10*3/uL High 150-400 Comment on above: Order Comment: Speci men Type: BLOOD SPECIMENOrdering Facility: [facility] Address: [address] [place] [address] Performed By: #### 5 7021-8 ####[facility] LABORATORYCLIA [id number] [place] [address] [place] RBC (Bld) [#/Vol] 3.76 10*6/uL Low 3.90-5.20 [facility] Comment on above: Order Comment: Speci men Type: BLOOD SPECIMENOrdering Facility: [facility] Address: [address] [place] [address] Performed By: #### 5 7021-8 ####[facility] LABORATORYCLIA [id number] [address] [place] WBC (Bld) [#/Vol] 10.94 10*3/uL Normal 3.70-11.00 [facility] Comment on above: Order Comment: Speci men Type: BLOOD SPECIMENOrdering Facility: [facility] Address: [address] [place] [address] Performed By: #### 5 7021-8 ####[facility] LABORATORYCLIA [id number] [address] [place] CONSULT PROGon 11-28-2024 CONSULT PROG Normal CONSULT PROG Normal CONSULT PROG Normal Magnesium SerPl-mCncon 11-28 Magnesium [Mass/Vol] 1.9 mg/dL Normal 1.7-2.3 [facility] Comment on above: Order Comment: Speci men Type: BLOOD SPECIMENOrdering Facility: [facility] Address: [address] [place] [address] Performed By: #### 2 4321-2, 37398-3, 2777 ####[facility] LABORATORYCLIA [id number] [place] [address] [place] Phosphate SerPl-mCncon 11-28 Phosphate [Mass/Vol] 3.4 mg/dL Normal 2.7-4.8 [facility] Comment on above: Order Comment: Speci men Type: BLOOD SPECIMENOrdering Facility: [facility] Address: [address] [id number] Performed By: #### 2 4321-2, , 27705-14 ####[facility] LABORATORYCLIA [id number] [place] [address] [place] THERAPY NTon 11-28-2024 THERAPY NT [facility] [facility] ALLIED HEALTHon 11-27-2024 ALLIED HEALTH [facility] ANES POSTPROC EVALon 025 ANES POSTPROC EVAL [facility] ANES PRE-OPon 11-27-2024 ANES PRE-OP [facility] Bacteria Spec Anaerobe Culto n 11-27-2024 Bacteria identified Anaer cx Nom (Unsp spec) Negative Normal Comment on above: Performed By: #### 6 35-3, 6462-6 ####[facility] LABCLIA [id number] [address] [address] [place] Bacteria Wnd Culton 11-27-19 25 Bacteria identified Cx Nom (Wound) Abnormal Comment on above: Performed By: #### 6 35-3, 6462-6 ####[facility] LABCLIA [id number] [address] [address] [place] Basic metabolic 2000 panelon 11-27-2024 Anion gap [Moles/Vol] 13 mmol/L Normal - [facility] Comment on above: Order Comment: Speci men Type: BLOOD SPECIMENOrdering Facility: [facility] Address: [address] [place], [place] [address] [address] Performed By: #### 2 4321-2, , 2776-11 ####[facility]ORATORYCLIA [id number] [place] [address] [place] Calcium [Mass/Vol] 9.0 mg/dL Normal 8.5-10.2 Comment on above: Order Comment: Speci men Type: BLOOD SPECIMENOrdering Facility: [facility] Address: [address] [place] [address] Performed By: #### 2 4321-2, , 2776-11 ####[facility] LABORATORYCLIA [id number] [place] [address] [place] Chloride [Moles/Vol] 94 mmol/L Low 98-107 [facility] Comment on above: Order Comment: Speci men Type: BLOOD SPECIMENOrdering Facility: [facility] Address: [address] [place] [address] Performed By: #### 2 4321-2, , 2776-11 ####[facility] LABORATORYCLIA [id number] [place] [address] [place] CO2 [Moles/Vol] 25 mmol/L Normal 22-30 Comment on above: Order Comment: Speci men Type: BLOOD SPECIMENOrdering Facility: [facility] Address: [address] [place] [address] Performed By: #### 2 4321-2, , 2776-11 ####[facility] LABORATORYCLIA [id number] [place] [address] [place] Creatinine [Mass/Vol] 0.76 mg/dL Normal 0.58-0.[address] [facility] Comment on above: Order Comment: Speci men Type: BLOOD SPECIMENOrdering Facility: [facility] Address: [address] [place] [address] Performed By: #### 2 4321-2, , 2776-11 ####[facility] LABORATORYCLIA [id number] [place] [address] [place] Creatinine and Glomerular filtration rate.predicted panel (S/P/Bld) 75 mL/min/1.73m??? Normal >=60 Comment on above: Order Comment: Fan meade Type: BLOOD SPECIMENOrdering Facility: [facility] Address: [address] [place] [address] Result Comment: Hilda mated Glomerular Filtration Rate [...] actual GFR. Performed By: #### 2 4321-2, 84335-8, 2776- ####[facility]ORYCLIA [id number] [place] [id number] [place] Glucose [Mass/Vol] 251 mg/dL High 74-99 Comment on above: Order Comment: Fan meade Type: BLOOD SPECIMENOrdering Facility: [facility] Address: [address] [place] [address] Result Comment: The [place] Diabetes [employer] (ADA) provides guidance for cutoff [...] Standards of Medical Care in Diabetes 2016, [place]. Diabetes Care. 2016.39(Suppl 1). Performed By: #### 2 4321-2, 39937-3, 2776-11 ####[facility]ATORYCLIA [id number] [place] [address] [place] Potassium [Moles/Vol] 3.6 mmol/L Low 3.7-5.[address] [facility] Comment on above: Order Comment: Fan meade Type: BLOOD SPECIMENOrdering Facility: [facility] Address: [address] [place] [address] Performed By: #### 2 4321-2, 66844-0, 2776-11 ####[facility] LABORATORYCLIA [id number] [place] [address] [place] Sodium [Moles/Vol] 132 mmol/L Low 136-144 Comment on above: Order Comment: Speci men Type: BLOOD SPECIMENOrdering Facility: [facility] Address: [address] [place] [address] Performed By: #### 2 4321-2, , 2776-11 ####[facility] LABORATORYCLIA [id number] [place] [address] [place] Urea nitrogen [Mass/Vol] 29 mg/dL High 7-21 Comment on above: Order Comment: Speci men Type: BLOOD SPECIMENOrdering Facility: [facility] Address: [address] [place] [address] Performed By: #### 2 4321-2, , 2776-11 ####[facility]ATORYCLIA [id number] [place] [id number] [place] CASE MANAGEMon 11-27-2024 CASE MANAGEM Normal CBC panel Auto (Bld)on 11-27 Erythrocyte distribution width (RBC) [Ratio] 15.1 % High 11.5-15.0 Comment on above: Order Comment: Speci men Type: BLOOD SPECIMENOrdering Facility: [facility] Address: [address] [place] [address] Performed By: #### 5 8410-2 ####[facility] LABORATORYCLIA [id number] [place] [id number] [place] Hematocrit (Bld) [Volume fraction] 29.3 % Low 36.0-46.0 Comment on above: Order Comment: Speci men Type: BLOOD SPECIMENOrdering Facility: [facility] Address: [address] [place] [address] Performed By: #### 5 8410-2 ####[facility] LABORATORYCLIA [id number] [place] [id number] [facility] [place] Hemoglobin (Bld) [Mass/Vol] 9.9 g/dL Low 11.5-15.5 Comment on above: Order Comment: Speci men Type: BLOOD SPECIMENOrdering Facility: [facility] Address: [address] [place] [address] Performed By: #### 5 8410-2 ####[facility] LABORATORYCLIA [id number] [place] [address] [place] MCH (RBC) [Entitic mass] 28.2 pg Normal 26.0-34.0 Comment on above: Order Comment: Speci men Type: BLOOD SPECIMENOrdering Facility: [facility] Address: [address] [place] [address] Performed By: #### 5 8410-2 ####[facility] LABORATORYCLIA [id number] [address] [place] MCHC (RBC) [Mass/Vol] 33.8 g/dL Normal 30.5-36.[address] [facility] Comment on above: Order Comment: Speci men Type: BLOOD SPECIMENOrdering Facility: [facility] Address: [address] [place] [address] Performed By: #### 5 8410-2 ####[facility] LABORATORYCLIA [id number] [address] [place] MCV (RBC) [Entitic vol] 83.5 fL Normal 80.0-100.0 M [facility] Comment on above: Order Comment: Speci men Type: BLOOD SPECIMENOrdering Facility: [facility] Address: [address] [place] [address] Performed By: #### 5 8410-2 ####[facility] LABORATORYCLIA [id number] [address] [place] Nucleated RBC (Bld) [#/Vol] 10*3/uL Normal <0.01 Comment on above: Order Comment: Speci men Type: BLOOD SPECIMENOrdering Facility: [facility] Address: [address] [place] [address] Performed By: #### 5 8410-2 ####[facility] LABORATORYCLIA [id number] [place] [address] [place] Platelet mean volume (Bld) [Entitic vol] 9.1 fL Normal 9.0-12.7 Comment on above: Order Comment: Speci men Type: BLOOD SPECIMENOrdering Facility: [facility] Address: [address] [place] [address] Performed By: #### 5 8410-2 ####[facility]ORYCLIA [id number] [place] [address] [place] Platelets (Bld) [#/Vol] 383 10*3/uL Normal 150-400 Comment on above: Order Comment: Speci men Type: BLOOD SPECIMENOrdering Facility: [facility] Address: [address] [place] [address] Performed By: #### 5 8410-2 ####[facility]ATORYCLIA [id number] [place] [address] [place] RBC (Bld) [#/Vol] 3.51 10*6/uL Low 3.90-5.20 [facility] Comment on above: Order Comment: Speci men Type: BLOOD SPECIMENOrdering Facility: [facility] Address: [address] [place] [address] Performed By: #### 5 8410-2 ####[facility]ORATORYCLIA [id number] [place] [address] [place] WBC (Bld) [#/Vol] 11.65 10*3/uL High 3.70-11.00 [facility] Comment on above: Order Comment: Speci men Type: BLOOD SPECIMENOrdering Facility: [facility] Address: [address] [place] [address] Performed By: #### 5 8410-2 ####[facility]ATORYCLIA [id number] [place] [id number] [facility] [place] CONSULT PROGon 11-27-2024 CONSULT PROG Normal Magnesium SerPl-mCncon 11-27 Magnesium [Mass/Vol] 1.6 mg/dL Low 1.7-2.3 [facility] Comment on above: Order Comment: Speci men Type: BLOOD SPECIMENOrdering Facility: [facility] Address: [address] [place] [address] Performed By: #### 2 4321-2, , 2776-11 ####[facility] LABORATORYCLIA [id number] [place] [address] [place] NUTRITIONon 11-27-2024 NUTRITION Normal OPERATIVE NOon 11-27-2024 OPERATIVE NO Normal Phosphate SerPl-mCncon 11-27 Phosphate [Mass/Vol] 3.7 mg/dL Normal 2.7-4.8 [facility] Comment on above: Order Comment: Speci men Type: BLOOD SPECIMENOrdering Facility: [facility] Address: [address] [place] [address] Performed By: #### 2 4321-2, , 2776-11 ####[facility]ORATORYCLIA [id number] [place] [address] [place] THERAPY NTon 11-27-2024 THERAPY NT Normal US ABD RIGHT UPPER QUADRANTo n 11-27-2024 US ABD RIGHT UPPER QUADRANT Normal US ABD SPLEEN -NBon 11-27-19 US ABD SPLEEN -NB Normal Basic metabolic 2000 panelon 11-26-2024 Anion gap [Moles/Vol] 10 mmol/L Normal 8-[address] [facility] Comment on above: Order Comment: Speci men Type: BLOOD SPECIMENOrdering Facility: [facility] Address: [address] [place] [address] Performed By: #### 2 4321-2, , 2776-11 ####[facility] LABORATORYCLIA [id number] [place] [address] [place] Calcium [Mass/Vol] 9.2 mg/dL Normal 8.5-10.2 Comment on above: Order Comment: Speci men Type: BLOOD SPECIMENOrdering Facility: [facility] Address: [address] [place] [address] Performed By: #### 2 4321-2, , 2776-11 ####[facility] LABORATORYCLIA [id number] [place] [address] [facility] Chloride [Moles/Vol] 94 mmol/L Low 98-107 [facility] Comment on above: Order Comment: Fan meade Type: BLOOD SPECIMENOrdering Facility: [facility] Address: [address] [place] [address] Performed By: #### 2 4321-2, , 2776-11 ####[facility]ATORYCLIA [id number] [place] [id number] [place] CO2 [Moles/Vol] 28 mmol/L Normal 22-30 Comment on above: Order Comment: Fan meade Type: BLOOD SPECIMENOrdering Facility: [facility] Address: [address] [place] [address] Performed By: #### 2 4321-2, , 2776-11 ####[facility]ORATORYCLIA [id number] [address] [facility] Creatinine [Mass/Vol] 0.98 mg/dL High 0.58-0.[address] [facility] Comment on above: Order Comment: Fan meade Type: BLOOD SPECIMENOrdering Facility: [facility] Address: [address] [place] [address] Performed By: #### 2 4321-2, , 2776-11 ####[facility]ORATORYCLIA [id number] [address] Creatinine and Glomerular filtration rate.predicted panel (S/P/Bld) 56 mL/min/1.73m??? Low >=60 Comment on above: Order Comment: Fan meade Type: BLOOD SPECIMENOrdering Facility: [facility] Address: [address] [place] [address] Result Comment: Hilda mated Glomerular Filtration Rate [...] #### 2 4321-2, , 2776-11 ####[facility] LABORATORYCLIA [id number] [place] [address] [place] Glucose [Mass/Vol] 244 mg/dL High 74-99 Comment on above: Order Comment: Speci men Type: BLOOD SPECIMENOrdering Facility: [facility] Address: [address] [place] [address] Result Comment: The [place] Diabetes Association (ADA) provides guidance for cutoff [...] Standards of Medical Care in Diabetes 2016, [place]. Diabetes Care. 2016.39(Suppl 1). Performed By: #### 2 4321-2, , 2776-11 ####[facility] LABORATORYCLIA [id number] [place] [id number] [place] Potassium [Moles/Vol] 4.4 mmol/L Normal 3.7-5.[address] [facility] Comment on above: Order Comment: Katei men Type: BLOOD SPECIMENOrdering Facility: [facility] Address: [address] [place] [address] Performed By: #### 2 4321-2, , 2776-11 ####[facility] LABORATORYCLIA [id number] [place] [address] [place] Sodium [Moles/Vol] 132 mmol/L Low 136-144 Comment on above: Order Comment: Speci men Type: BLOOD SPECIMENOrdering Facility: [facility] Address: [address] [place], [place] [address] Performed By: #### 2 4321-2, , 2776-11 ####[facility] LABORATORYCLIA [id number] [place] [address] [place] Urea nitrogen [Mass/Vol] 37 mg/dL High 7-21 Comment on above: Order Comment: Speci men Type: BLOOD SPECIMENOrdering Facility: [facility] Address: [address] [place] [address] Performed By: #### 2 4321-2, 54921-9, 2777-1 ####[facility] LABORATORYCLIA [id number] [place] [address] [place] CASE MANAGEMon 11-26-2024 CASE MANAGEM Normal CBC W Auto Differential pane l (Bld)on 11-26-2024 Basophils (Bld) [#/Vol] 0.04 10*3/uL Normal <0.11 Comment on above: Order Comment: Speci men Type: BLOOD SPECIMENOrdering Facility: [facility] Address: [address] [place] [address] Performed By: #### 5 7021-8 ####[facility] LABORATORYCLIA [id number] [place] [address] [place] Basophils/100 WBC (Bld) 0.4 % Normal [facility] Comment on above: Order Comment: Speci men Type: BLOOD SPECIMENOrdering Facility: [facility] Address: [address] [place] [address] Performed By: #### 5 7021-8 ####[facility] LABORATORYCLIA [id number] [place] [address] [place] Differential cell count method Nom (Bld) Auto Normal Comment on above: Order Comment: Speci men Type: BLOOD SPECIMENOrdering Facility: [facility] Address: [address] [place] [address] Performed By: #### 5 7021-8 ####[facility] LABORATORYCLIA [id number] [place] [address] [place] Eosinophils (Bld) [#/Vol] 0.41 10*3/uL Normal <0.46 Comment on above: Order Comment: Speci men Type: BLOOD SPECIMENOrdering Facility: [facility] Address: [address] [place] [address] Performed By: #### 5 7021-8 ####[facility] LABORATORYCLIA [id number] [address] [place] Eosinophils/100 WBC (Bld) 3.9 % Normal Comment on above: Order Comment: Speci men Type: BLOOD SPECIMENOrdering Facility: [facility] Address: [address] [place] [address] Performed By: #### 5 7021-8 ####[facility] LABORATORYCLIA [id number] [address] [place] Erythrocyte distribution width (RBC) [Ratio] 14.9 % Normal 11.5-15.0 Comment on above: Order Comment: Speci men Type: BLOOD SPECIMENOrdering Facility: [facility] Address: [address] [place] [address] Performed By: #### 5 7021-8 ####[facility] LABORATORYCLIA [id number] [address] [place] Hematocrit (Bld) [Volume fraction] 30.0 % Low 36.0-46.0 Comment on above: Order Comment: Speci men Type: BLOOD SPECIMENOrdering Facility: [facility] Address: [address] [place] [address] Performed By: #### 5 7021-8 ####[facility] LABORATORYCLIA [id number] [address] [place] Hemoglobin (Bld) [Mass/Vol] 10.1 g/dL Low 11.5-15.5 Comment on above: Order Comment: Speci men Type: BLOOD SPECIMENOrdering Facility: [facility] Address: [address] [place] [address] Performed By: #### 5 7021-8 ####[facility] LABORATORYCLIA [id number] [address] [place] Immature granulocytes (Bld) [#/Vol] 0.09 10*3/uL Normal <0.10 Comment on above: Order Comment: Speci men Type: BLOOD SPECIMENOrdering Facility: [facility] Address: [address] [place] [address] Performed By: #### 5 7021-8 ####[facility] LABORATORYCLIA [id number] [address] Immature granulocytes/100 WBC (Bld) 0.9 % Normal Comment on above: Order Comment: Speci men Type: BLOOD SPECIMENOrdering Facility: [facility] Address: [address] [place] [address] Performed By: #### 5 7021-8 ####[facility] LABORATORYCLIA [id number] [place] [address] [place] Lymphocytes (Bld) [#/Vol] 1.04 10*3/uL Normal 1.00-4.00 Comment on above: Order Comment: Speci men Type: BLOOD SPECIMENOrdering Facility: [facility] Address: [address] [place] [address] Performed By: #### 5 7021-8 ####[facility] LABORATORYCLIA [id number] [address] Lymphocytes/100 WBC (Bld) 9.9 % Normal Comment on above: Order Comment: Speci men Type: BLOOD SPECIMENOrdering Facility: [facility] Address: [address] [place] [address] Performed By: #### 5 7021-8 ####[facility] LABORATORYCLIA [id number] [place] [address] [place] MCH (RBC) [Entitic mass] 28.1 pg Normal 26.0-34.0 Comment on above: Order Comment: Speci men Type: BLOOD SPECIMENOrdering Facility: [facility] Address: [address] [place] [address] Performed By: #### 5 7021-8 ####[facility] LABORATORYCLIA [id number] [address] [place] MCHC (RBC) [Mass/Vol] 33.7 g/dL Normal 30.5-36.[address] [facility] Comment on above: Order Comment: Speci men Type: BLOOD SPECIMENOrdering Facility: [facility] Address: [address] [place] [address] Performed By: #### 5 7021-8 ####[facility] LABORATORYCLIA [id number] [address] [place] MCV (RBC) [Entitic vol] 83.3 fL Normal 80.0-100.0 M [facility] Comment on above: Order Comment: Speci men Type: BLOOD SPECIMENOrdering Facility: [facility] Address: [address] [place] [address] Performed By: #### 5 7021-8 ####[facility] LABORATORYCLIA [id number] [place] [address] [place] Monocytes (Bld) [#/Vol] 0.93 10*3/uL High <0.87 Comment on above: Order Comment: Speci men Type: BLOOD SPECIMENOrdering Facility: [facility] Address: [address] [place] [address] Performed By: #### 5 7021-8 ####[facility] LABORATORYCLIA [id number] [address] [place] Monocytes/100 WBC (Bld) 8.9 % Normal [facility] Comment on above: Order Comment: Speci men Type: BLOOD SPECIMENOrdering Facility: [facility] Address: [address] [place] [address] Performed By: #### 5 7021-8 ####[facility] LABORATORYCLIA [id number] [place] [address] [place] Neutrophils (Bld) [#/Vol] 7.97 10*3/uL High 1.45-7.50 Comment on above: Order Comment: Speci men Type: BLOOD SPECIMENOrdering Facility: [facility] Address: [address] [place] [address] Performed By: #### 5 7021-8 ####[facility] LABORATORYCLIA [id number] [address] [place] Neutrophils/100 WBC (Bld) 76.0 % Normal Comment on above: Order Comment: Speci men Type: BLOOD SPECIMENOrdering Facility: [facility] Address: [address] [place] [address] Performed By: #### 5 7021-8 ####[facility] LABORATORYCLIA [id number] [address] Nucleated RBC (Bld) [#/Vol] 10*3/uL Normal <0.01 Comment on above: Order Comment: Speci men Type: BLOOD SPECIMENOrdering Facility: [facility] Address: [address] [place] [address] Performed By: #### 5 7021-8 ####[facility] LABORATORYCLIA [id number] [address] Nucleated RBC/100 WBC (Bld) [Ratio] 0.0 /100 WBC Normal Comment on above: Order Comment: Speci men Type: BLOOD SPECIMENOrdering Facility: [facility] Address: [address] [place] [address] Performed By: #### 5 7021-8 ####[facility] LABORATORYCLIA [id number] [address] [place] Platelet mean volume (Bld) [Entitic vol] 9.0 fL Normal 9.0-12.7 Comment on above: Order Comment: Speci men Type: BLOOD SPECIMENOrdering Facility: [facility] Address: [address] [place] [address] Performed By: #### 5 7021-8 ####[facility] LABORATORYCLIA [id number] [address] [place] Platelets (Bld) [#/Vol] 381 10*3/uL Normal 150-400 Comment on above: Order Comment: Speci men Type: BLOOD SPECIMENOrdering Facility: [facility] Address: [address] [place] [address] Performed By: #### 5 7021-8 ####[facility] LABORATORYCLIA [id number] [address] [place] RBC (Bld) [#/Vol] 3.60 10*6/uL Low 3.90-5.20 [facility] Comment on above: Order Comment: Speci halina Type: BLOOD SPECIMENOrdering Facility: [facility] Address: [address] [place] [id number] Performed By: #### 5 7021-8 ####[facility]ORATORYCLIA [id number] [address] [facility] WBC (Bld) [#/Vol] 10.48 10*3/uL Normal 3.70-11.00 [facility] Comment on above: Order Comment: Speci men Type: BLOOD SPECIMENOrdering Facility: [facility] Address: [address] [place] [address] Performed By: #### 5 7021-8 ####[facility] LABORATORYCLIA [id number] [address] CNPNon 11-26-2024 CNPN Telephone (HEMAST) YUSUF MEDINA ([id number]) 1935 [address] [facility] Date Time Provider Department 11/26/24 GRUPO MENDEZ During your visit today, we recorded the following information about you: Sue Urbina 11/26/2024 9:54 AM Signed 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 Pt is still inpatient. When she is discharged she will be sent to a rehab and will not be able to make appts. Any time soon. Please advise for further requirements. Grupo Mendez MD 11/26/2024 5:[address] Mendez reviewed labs from . Dr. Mendez recommended for patient to be [...] needed for sedation. - blood sugar diagnostic (GeoCitiesTOUCH ULTRA TEST) test strip Test blood sugar [...] this patient by: CAREGIVER José Miguel Swanson [facility] Problem List As Of Date 11/26/2024 Noted [...] (capsule) sprain (more content not included)... Normal [facility] CONSULT PROGon 11-26-2024 CONSULT PROG [facility] CONSULT PROG [facility] CONSULT PROG [facility] CT ABD/PEL WO IVCONon 2024 CT ABD/PEL WO IVCON [facility] Lipase SerPl-cCncon 11-26-19 25 Lipase [Catalytic activity/Vol] 22 U/L Normal 16-61 Comment on above: Order Comment: Speci men Type: BLOOD SPECIMENOrdering Facility: [facility] Address: [address] [place] [address] Performed By: #### 3 040-3 ####[facility]ORY[facility]IA [id number] [place] [address] [place] Magnesium SerPl-mCncon 11-26 Magnesium [Mass/Vol] 2.0 mg/dL Normal 1.7-2.3 [facility] Comment on above: Order Comment: Speci men Type: BLOOD SPECIMENOrdering Facility: [facility] Address: [address] [place] [address] Performed By: #### 2 4321-2, 50737-9, 277- ####[facility]ORATORYCLIA [id number] [place] [address] [place] NURSING PROGon 11-26-2024 NURSING PROG Normal Phosphate SerPl-mCncon 11-26 Phosphate [Mass/Vol] 3.0 mg/dL Normal 2.7-4.8 [facility] Comment on above: Order Comment: Speci men Type: BLOOD SPECIMENOrdering Facility: [facility] Address: [address] [place] [address] Performed By: #### 2 4321-2, , 277- ####[facility]ORATORYCLIA [id number] [place] [address] [place] Basic metabolic 2000 panelon 11-25-2024 Anion gap [Moles/Vol] 12 mmol/L Normal 8-[address] [facility] Comment on above: Order Comment: Speci men Type: BLOOD SPECIMENOrdering Facility: [facility] Address: [address] [place] [address] Performed By: #### 2 4321-2, ####[facility]ORATORYCLIA [id number] [place] [address] [place] Calcium [Mass/Vol] 8.9 mg/dL Normal 8.5-10.2 Comment on above: Order Comment: Speci men Type: BLOOD SPECIMENOrdering Facility: [facility] Address: [address] [place] [address] Performed By: #### 2 4321-2, ####VILLARREAL LABORATORYCLIA [id number] [place] [id number] [place] Chloride [Moles/Vol] 94 mmol/L Low 98-107 [facility] Comment on above: Order Comment: Speci men Type: BLOOD SPECIMENOrdering Facility: [facility] Address: [address] [place] [address] Performed By: #### 2 4321-2, 25566-6 ####VILLARREAL LABORATORYCLIA [id number] [place] [address] [place] CO2 [Moles/Vol] 24 mmol/L Normal 22-30 Comment on above: Order Comment: Fan meade Type: BLOOD SPECIMENOrdering Facility: [facility] Address: [address] [place] [address] Performed By: #### 2 4321-2, ####VILLARREAL LABORATORYCLIA [id number] [place] [address] [place] Creatinine [Mass/Vol] 0.79 mg/dL Normal 0.58-0.[address] [facility] Comment on above: Order Comment: Fan meade Type: BLOOD SPECIMENOrdering Facility: [facility] Address: [address] [place] [address] Performed By: #### 2 4321-2, ####VILLARREAL LABORATORYCLIA [id number] [address] Creatinine and Glomerular filtration rate.predicted panel (S/P/Bld) 72 mL/min/1.73m??? Normal >=60 Comment on above: Order Comment: Fan meade Type: BLOOD SPECIMENOrdering Facility: [facility] Address: [address] [place] [address] Result Comment: Hilda mated Glomerular Filtration Rate [...] Performed By: #### 2 4321-2, ####VILLARREAL LABORATORYCLIA [id number] [place] [id number] [place] Glucose [Mass/Vol] 251 mg/dL High 74-99 Comment on above: Order Comment: Fan meade Type: BLOOD SPECIMENOrdering Facility: [facility] Address: [address] [place] [address] Result Comment: The [place] Diabetes Association (ADA) provides guidance for cutoff [...] Standards of Medical Care in Diabetes 2016, [place] [employer]. Diabetes Care. 2016.39(Suppl 1). Performed By: #### 2 4320-12, ####VILLARREAL LABORATORYCLIA [id number] [place] [address] [place] Potassium [Moles/Vol] 3.9 mmol/L Normal 3.7-5.[address] [facility] Comment on above: Order Comment: Fan meade Type: BLOOD SPECIMENOrdering Facility: [facility] Address: [address] [place] [address] Performed By: #### 2 4320-12, ####VILLARREAL LABORATORYCLIA [id number] [place] [address] [place] Sodium [Moles/Vol] 130 mmol/L Low 136-144 Comment on above: Order Comment: Fan meade Type: BLOOD SPECIMENOrdering Facility: [facility] Address: [address] [place] [address] Performed By: #### 2 4320-12, ####VILLARREAL LABORATORYCLIA [id number] [place] [address] [place] Urea nitrogen [Mass/Vol] 32 mg/dL High 7-21 Comment on above: Order Comment: Fan meade Type: BLOOD SPECIMENOrdering Facility: [facility] Address: [facility] [place] [address] Performed By: #### 2 4320-12, ####VILLARREAL LABORATORYCLIA [id number] [place] [id number] [place] CBC W Auto Differential pane l (Bld)on 11-25-2024 Basophils (Bld) [#/Vol] 0.05 10*3/uL Normal <0.11 Comment on above: Order Comment: Speci men Type: BLOOD SPECIMENOrdering Facility: [facility] Address: [address] [place] [address] Performed By: #### 5 7021-8 ####VILLARREAL LABORATORYCLIA [id number] [address] [place] Basophils/100 WBC (Bld) 0.4 % Normal [facility] Comment on above: Order Comment: Speci men Type: BLOOD SPECIMENOrdering Facility: [facility] Address: [address] [place] [address] Performed By: #### 5 7021-8 ####VILLARREAL LABORATORYCLIA [id number] [address] Differential cell count method Nom (Bld) Auto Normal Comment on above: Order Comment: Speci men Type: BLOOD SPECIMENOrdering Facility: [facility] Address: [address] [place] [address] Performed By: #### 5 7021-8 ####VILLARREAL LABORATORYCLIA [id number] [place] [address] [place] Eosinophils (Bld) [#/Vol] 0.11 10*3/uL Normal <0.46 Comment on above: Order Comment: Speci men Type: BLOOD SPECIMENOrdering Facility: [facility] Address: [address] [place] [address] Performed By: #### 5 7021-8 ####VILLARREAL LABORATORYCLIA [id number] [address] Eosinophils/100 WBC (Bld) 0.8 % Normal Comment on above: Order Comment: Speci men Type: BLOOD SPECIMENOrdering Facility: [facility] Address: [address] [place] [address] Performed By: #### 5 7021-8 ####VILLARREAL LABORATORYCLIA [id number] [place] [address] [place] Erythrocyte distribution width (RBC) [Ratio] 14.9 % Normal 11.5-15.0 Comment on above: Order Comment: Speci men Type: BLOOD SPECIMENOrdering Facility: [facility] Address: [address] [place] [address] Performed By: #### 5 7021-8 ####VILLARREAL LABORATORYCLIA [id number] [place] [address] [place] [facility] [place] Hematocrit (Bld) [Volume fraction] 31.8 % Low 36.0-46.0 Comment on above: Order Comment: Speci men Type: BLOOD SPECIMENOrdering Facility: [facility] Address: [address] [place] [address] Performed By: #### 5 7021-8 ####VILLARREAL LABORATORYCLIA [id number] [address] [place] Hemoglobin (Bld) [Mass/Vol] 10.5 g/dL Low 11.5-15.5 Comment on above: Order Comment: Speci men Type: BLOOD SPECIMENOrdering Facility: [facility] Address: [address] [place] [address] Performed By: #### 5 7021-8 ####VILLARREAL LABORATORYCLIA [id number] [address] [place] Immature granulocytes (Bld) [#/Vol] 0.09 10*3/uL Normal <0.10 Comment on above: Order Comment: Speci men Type: BLOOD SPECIMENOrdering Facility: [facility] Address: [address] [place] [address] Performed By: #### 5 7021-8 ####VILLARREAL LABORATORYCLIA [id number] [address] [place] Immature granulocytes/100 WBC (Bld) 0.6 % Normal Comment on above: Order Comment: Speci men Type: BLOOD SPECIMENOrdering Facility: [facility] Address: [address] [place] [address] Performed By: #### 5 7021-8 ####VILLARREAL LABORATORYCLIA [id number] [place] [address] [place] [facility] [place] Lymphocytes (Bld) [#/Vol] 1.18 10*3/uL Normal 1.00-4.00 Comment on above: Order Comment: Speci men Type: BLOOD SPECIMENOrdering Facility: [facility] Address: [address] [place] [address] Performed By: #### 5 7021-8 ####VILLARREAL LABORATORYCLIA [id number] [address] Lymphocytes/100 WBC (Bld) 8.5 % Normal Comment on above: Order Comment: Speci men Type: BLOOD SPECIMENOrdering Facility: [facility] Address: [address] [place] [address] Performed By: #### 5 7021-8 ####VILLARREAL LABORATORYCLIA [id number] [address] [place] MCH (RBC) [Entitic mass] 27.8 pg Normal 26.0-34.0 Comment on above: Order Comment: Speci men Type: BLOOD SPECIMENOrdering Facility: [facility] Address: [address] [place] [address] Performed By: #### 5 7021-8 ####VILLARREAL LABORATORYCLIA [id number] [address] STATES [facility] MCHC (RBC) [Mass/Vol] 33.0 g/dL Normal 30.5-36.[address] [facility] Comment on above: Order Comment: Speci men Type: BLOOD SPECIMENOrdering Facility: [facility] Address: [address] [place] [address] Performed By: #### 5 7021-8 ####VILLARREAL LABORATORYCLIA [id number] [address] [place] MCV (RBC) [Entitic vol] 84.1 fL Normal 80.0-100.0 [facility] Comment on above: Order Comment: Speci men Type: BLOOD SPECIMENOrdering Facility: [facility] Address: [address] [place] [address] Performed By: #### 5 7021-8 ####VILLARREAL LABORATORYCLIA [id number] [place] [address] [place] Monocytes (Bld) [#/Vol] 1.11 10*3/uL High <0.87 Comment on above: Order Comment: Speci men Type: BLOOD SPECIMENOrdering Facility: [facility] Address: [address] [place] [address] Performed By: #### 5 7021-8 ####VILLARREAL LABORATORYCLIA [id number] [place] [address] [place] Monocytes/100 WBC (Bld) 8.0 % Normal [facility] Comment on above: Order Comment: Speci men Type: BLOOD SPECIMENOrdering Facility: [facility] Address: [address] [place] [address] Performed By: #### 5 7021-8 ####VILLARREAL LABORATORYCLIA [id number] [place] [address] [place] Neutrophils (Bld) [#/Vol] 11.41 10*3/uL High 1.45-7.50 Comment on above: Order Comment: Speci men Type: BLOOD SPECIMENOrdering Facility: [facility] Address: [address] [place] [address] Performed By: #### 5 7021-8 ####VILLARREAL LABORATORYCLIA [id number] [place] [address] [place] Neutrophils/100 WBC (Bld) 81.7 % Normal Comment on above: Order Comment: Speci men Type: BLOOD SPECIMENOrdering Facility: [facility] Address: [address] [place] [address] Performed By: #### 5 7021-8 ####VILLARREAL LABORATORYCLIA [id number] [place] [id number] [place] Nucleated RBC (Bld) [#/Vol] 10*3/uL Normal <0.01 Comment on above: Order Comment: Speci men Type: BLOOD SPECIMENOrdering Facility: [facility] Address: [address] [place] [address] Performed By: #### 5 7021-8 ####VILLARREAL LABORATORYCLIA [id number] [place] [address] [place] Nucleated RBC/100 WBC (Bld) [Ratio] 0.0 /100 WBC Normal Comment on above: Order Comment: Speci men Type: BLOOD SPECIMENOrdering Facility: [facility] Address: [address] [place] [address] Performed By: #### 5 7021-8 ####VILLARREAL LABORATORYCLIA [id number] [place] [address] [place] Platelet mean volume (Bld) [Entitic vol] 9.4 fL Normal 9.0-12.7 Comment on above: Order Comment: Speci men Type: BLOOD SPECIMENOrdering Facility: [facility] Address: [address] [place] [address] Performed By: #### 5 7021-8 ####LUMBERT[facility] LABORATORYCLIA [id number] [place] [address] [place] Platelets (Bld) [#/Vol] 358 10*3/uL Normal 150-400 Comment on above: Order Comment: Speci men Type: BLOOD SPECIMENOrdering Facility: [facility] Address: [address] [place] [address] Performed By: #### 5 7021-8 ####VILLARREAL LABORATORYCLIA [id number] [place] [address] [place] RBC (Bld) [#/Vol] 3.78 10*6/uL Low 3.90-5.20 [facility] Comment on above: Order Comment: Speci men Type: BLOOD SPECIMENOrdering Facility: [facility] Address: [address] [place] [address] Performed By: #### 5 7021-8 ####VILLARREAL LABORATORYCLIA [id number] [place] [id number] [place] WBC (Bld) [#/Vol] 13.95 10*3/uL High 3.70-11.00 [facility] Comment on above: Order Comment: Speci men Type: BLOOD SPECIMENOrdering Facility: [facility] Address: [address] [place] [address] Performed By: #### 5 7021-8 ####VILLARREAL LABORATORYCLIA [id number] [address] [place] CONSULT PROGon 11-25-2024 CONSULT PROG Normal CONSULT PROG Normal CONSULT PROG Normal Magnesium SerPl-mCncon 11-25 Magnesium [Mass/Vol] 1.1 mg/dL Low 1.7-2.3 [facility] Comment on above: Order Comment: Speci men Type: BLOOD SPECIMENOrdering Facility: [facility] Address: [address] [place] [address] Performed By: #### 2 4321-2, 01565-9 ####VILLARREAL LABORATORYCLIA [id number] [place] [address] [place] [facility] Basic metabolic 2000 panelon 11-24-2024 Anion gap [Moles/Vol] 14 mmol/L Normal 8-[address] [facility] Comment on above: Order Comment: Speci men Type: BLOOD SPECIMENOrdering Facility: [facility] Address: [address] [place] [address] Performed By: #### 2 4321-2 ####VILLARREAL LABORATORYCLIA [id number] [place] [address] [place] Calcium [Mass/Vol] 8.8 mg/dL Normal 8.5-10.2 Comment on above: Order Comment: Speci men Type: BLOOD SPECIMENOrdering Facility: [facility] Address: [address] [place] [address] Performed By: #### 2 4321-2 ####VILLARREAL LABORATORYCLIA [id number] [place] [address] [place] Chloride [Moles/Vol] 95 mmol/L Low 98-107 [facility] Comment on above: Order Comment: Speci men Type: BLOOD SPECIMENOrdering Facility: [facility] Address: [address] [place] [address] Performed By: #### 2 4321-2 ####VILLARREAL LABORATORYCLIA [id number] [place] [address] [place] CO2 [Moles/Vol] 24 mmol/L Normal 22-30 Comment on above: Order Comment: Fan meade Type: BLOOD SPECIMENOrdering Facility: [facility] Address: [address] [place] [address] Performed By: #### 2 4321-2 ####VILLARREAL LABORATORYCLIA [id number] [address] STATES OF [facility] Creatinine [Mass/Vol] 0.92 mg/dL Normal 0.58-0.[address] [facility] Comment on above: Order Comment: Fan meade Type: BLOOD SPECIMENOrdering Facility: [facility] Address: [address] [place] [address] Performed By: #### 2 4321-2 ####LUMBERTON LABORATORYCLIA [id number] [address] Creatinine and Glomerular filtration rate.predicted panel (S/P/Bld) 60 mL/min/1.73m??? Normal >=60 Comment on above: Order Comment: Fan meade Type: BLOOD SPECIMENOrdering Facility: [facility] Address: [address] [place] [address] Result Comment: Hilda mated Glomerular Filtration Rate [...] Performed By: #### 2 4321-2 ####VILLARREAL LABORATORYCLIA [id number] [address] [place] OF [facility] Glucose [Mass/Vol] 202 mg/dL High 74-99 Comment on above: Order Comment: Fan halina Type: BLOOD SPECIMENOrdering Facility: [facility] Address: [address] [place] [address] Result Comment: The [place] Diabetes Association (ADA) provides guidance for cutoff [...] Standards of Medical Care in Diabetes 2016, [place]. Diabetes Care. 2016.39(Suppl 1). Performed By: #### 2 4321-2 ####VILLARREAL LABORATORYCLIA [id number] [address] [place] Potassium [Moles/Vol] 4.0 mmol/L Normal 3.7-5.[address] [facility] Comment on above: Order Comment: Fan meade Type: BLOOD SPECIMENOrdering Facility: [facility] Address: [address] [place] [address] Performed By: #### 2 4321-2 ####VILLARREAL LABORATORYCLIA [id number] [address] [place] Sodium [Moles/Vol] 133 mmol/L Low 136-144 Comment on above: Order Comment: Fan meade Type: BLOOD SPECIMENOrdering Facility: [facility] Address: [address] [place] [address] Performed By: #### 2 4321-2 ####VILLARREAL LABORATORYCLIA [id number] [address] [place] [facility] Urea nitrogen [Mass/Vol] 39 mg/dL High 7-21 Comment on above: Order Comment: Fan meade Type: BLOOD SPECIMENOrdering Facility: [facility] Address: [address] [place] [address] Performed By: #### 2 4321-2 ####VILLARREAL LABORATORYCLIA [id number] [address] [place] CBC panel Auto (Bld)on 11-24 Erythrocyte distribution width (RBC) [Ratio] 15.2 % High 11.5-15.0 Comment on above: Order Comment: Fan meade Type: BLOOD SPECIMENOrdering Facility: [facility] Address: [address] [place], [place] [address] Performed By: #### 5 8410-2 ####VILLARREAL LABORATORYCLIA [id number] [address] Hematocrit (Bld) [Volume fraction] 29.3 % Low 36.0-46.0 Comment on above: Order Comment: Speci men Type: BLOOD SPECIMENOrdering Facility: [facility] Address: [address] [place] [address] Performed By: #### 5 8410-2 ####VILLARREAL LABORATORYCLIA [id number] [address] Hemoglobin (Bld) [Mass/Vol] 9.7 g/dL Low 11.5-15.5 Comment on above: Order Comment: Speci men Type: BLOOD SPECIMENOrdering Facility: [facility] Address: [address] [place] [address] Performed By: #### 5 8410-2 ####VILLARREAL LABORATORYCLIA [id number] [address] MCH (RBC) [Entitic mass] 27.8 pg Normal 26.0-34.0 Comment on above: Order Comment: Speci men Type: BLOOD SPECIMENOrdering Facility: [facility] Address: [address] [place] [address] Performed By: #### 5 8410-2 ####VILLARREAL LABORATORYCLIA [id number] [address] MCHC (RBC) [Mass/Vol] 33.1 g/dL Normal 30.5-36.[address] [facility] Comment on above: Order Comment: Speci men Type: BLOOD SPECIMENOrdering Facility: [facility] Address: [address] [place] [address] Performed By: #### 5 8410-2 ####VILLARREAL LABORATORYCLIA [id number] [address] MCV (RBC) [Entitic vol] 84.0 fL Normal 80.0-100.0 [facility] Comment on above: Order Comment: Speci men Type: BLOOD SPECIMENOrdering Facility: [facility] Address: [address] [place] [address] Performed By: #### 5 8410-2 ####VILLARREAL LABORATORYCLIA [id number] [place] [address] [place] Nucleated RBC (Bld) [#/Vol] 10*3/uL Normal <0.01 Comment on above: Order Comment: Speci men Type: BLOOD SPECIMENOrdering Facility: [facility] Address: [address] [place] [address] Performed By: #### 5 8410-2 ####VILLARREAL LABORATORYCLIA [id number] [place] [address] [place] Platelet mean volume (Bld) [Entitic vol] 9.5 fL Normal 9.0-12.7 Comment on above: Order Comment: Speci men Type: BLOOD SPECIMENOrdering Facility: [facility] Address: [address] [place] [address] Performed By: #### 5 8410-2 ####VILLARREAL LABORATORYCLIA [id number] [address] [place] Platelets (Bld) [#/Vol] 338 10*3/uL Normal 150-400 Comment on above: Order Comment: Speci men Type: BLOOD SPECIMENOrdering Facility: [facility] Address: [address] [place] [address] Performed By: #### 5 8410-2 ####VILLARREAL LABORATORYCLIA [id number] [place] [address] [place] RBC (Bld) [#/Vol] 3.49 10*6/uL Low 3.90-5.20 [facility] Comment on above: Order Comment: Speci men Type: BLOOD SPECIMENOrdering Facility: [facility] Address: [address] [place] [address] Performed By: #### 5 8410-2 ####VILLARREAL LABORATORYCLIA [id number] [place] [address] [place] WBC (Bld) [#/Vol] 12.48 10*3/uL High 3.70-11.00 [facility] Comment on above: Order Comment: Speci men Type: BLOOD SPECIMENOrdering Facility: [facility] Address: [address] [place] [address] Performed By: #### 5 8410-2 ####VILLARREAL LABORATORYCLIA [id number] [place] [address] [place] CONSULTon 11-24-2024 CONSULT Normal CONSULT PROGon 11-24-2024 CONSULT PROG Normal CONSULT PROG Normal Vancomycin Butler SerPl-mCncon 11-24-2024 Vancomycin random [Mass/Vol] 11.6 ug/mL Normal 10.0-20.0 Comment on above: Order Comment: Speci men Type: BLOOD SPECIMENOrdering Facility: [facility] Address: [address] [place] [address] Result Comment: Refe rence ranges and high/low indicator flags are provided as general guidelines only. The treating physician must determine appropriate target levels/dosing based on the specific clinical situation. Performed By: #### 4 091-5 ####LUM[facility]ERT[facility] LABORATORYCLIA [id number] [place] [address] [place] Basic metabolic 2000 panelon 11-23-2024 Anion gap [Moles/Vol] 14 mmol/L Normal 8-[address] [facility] Comment on above: Order Comment: Speci men Type: BLOOD SPECIMENOrdering Facility: [facility] Address: [address] [place] [address] Performed By: #### 2 4321-2 ####LUMBERT[facility] LABORATORYCLIA [id number] [place] [id number] [place] Calcium [Mass/Vol] 8.7 mg/dL Normal 8.5-10.2 Comment on above: Order Comment: Speci men Type: BLOOD SPECIMENOrdering Facility: [facility] Address: [address] [place] [address] Performed By: #### 2 4321-2 ####VILLARREAL LABORATORYCLIA [id number] [place] [id number] [place] Chloride [Moles/Vol] 98 mmol/L Normal 98-107 [facility] Comment on above: Order Comment: Speci men Type: BLOOD SPECIMENOrdering Facility: [facility] Address: [address] [place] [address] Performed By: #### 2 4321-2 ####VILLARREAL LABORATORYCLIA [id number] [place] [id number] [place] CO2 [Moles/Vol] 24 mmol/L Normal 22-30 Comment on above: Order Comment: Speci men Type: BLOOD SPECIMENOrdering Facility: [facility] Address: [address] [place] [address] Performed By: #### 2 4321-2 ####VILLARREAL LABORATORYCLIA [id number] [place] [address] [place] Creatinine [Mass/Vol] 0.96 mg/dL Normal 0.58-0.[address] [facility] Comment on above: Order Comment: Speci men Type: BLOOD SPECIMENOrdering Facility: [facility] Address: [address] [place] [address] Performed By: #### 2 4321-2 ####VILLARREAL LABORATORYCLIA [id number] [place] [address] [place] Creatinine and Glomerular filtration rate.predicted panel (S/P/Bld) 57 mL/min/1.73m??? Low >=60 Comment on above: Order Comment: Fan halina Type: BLOOD SPECIMENOrdering Facility: [facility] Address: [address] [place] [address] Result Comment: Hilda mated Glomerular Filtration Rate [...] Performed By: #### 2 4321-2 ####VILLARREAL LABORATORYCLIA [id number] [place] [id number] [place] Glucose [Mass/Vol] 193 mg/dL High 74-99 [facility] Comment on above: Order Comment: Fan men Type: BLOOD SPECIMENOrdering Facility: [facility] Address: [address] [place] [address] Result Comment: The [place] Diabetes Association (ADA) provides guidance for cutoff [...] Standards of Medical Care in Diabetes 2016, [place]. Diabetes Care. 2016.39(Suppl 1). Performed By: #### 2 4321-2 ####VILLARREAL LABORATORYCLIA [id number] [place] [address] [place] Potassium [Moles/Vol] 4.1 mmol/L Normal 3.7-5.[address] [facility] Comment on above: Order Comment: Fan meade Type: BLOOD SPECIMENOrdering Facility: [facility] Address: [address] [place] [address] Performed By: #### 2 4321-2 ####VILLARREAL LABORATORYCLIA [id number] [place] [address] [place] Sodium [Moles/Vol] 136 mmol/L Normal 136-144 Comment on above: Order Comment: Fan men Type: BLOOD SPECIMENOrdering Facility: [facility] Address: [address] [id number] Performed By: #### 2 4321-2 ####[facility] LABORATORYCLIA [id number] [place] [address] [place] Urea nitrogen [Mass/Vol] 31 mg/dL High 7-21 Comment on above: Order Comment: Fan men Type: BLOOD SPECIMENOrdering Facility: [facility] Address: [address] [id number] Performed By: #### 2 4321-2 ####[facility] LABORATORYCLIA [id number] [address] [place] CASE MANAGEMon 11-23-2024 CASE MANAGEM Normal CBC panel Auto (Bld)on 11-23 Erythrocyte distribution width (RBC) [Ratio] 15.1 % High 11.5-15.0 Comment on above: Order Comment: Speci men Type: BLOOD SPECIMENOrdering Facility: [facility] Address: [address] [place] [address] Performed By: #### 5 8410-2 ####[facility] LABORATORYCLIA [id number] [address] Hematocrit (Bld) [Volume fraction] 30.5 % Low 36.0-46.0 Comment on above: Order Comment: Speci men Type: BLOOD SPECIMENOrdering Facility: [facility] Address: [address] [place] [address] Performed By: #### 5 8410-2 ####[facility] LABORATORYCLIA [id number] [address] Hemoglobin (Bld) [Mass/Vol] 10.2 g/dL Low 11.5-15.5 Comment on above: Order Comment: Speci men Type: BLOOD SPECIMENOrdering Facility: [facility] Address: [address] [place] [address] Performed By: #### 5 8410-2 ####[facility] LABORATORYCLIA [id number] [address] MCH (RBC) [Entitic mass] 28.2 pg Normal 26.0-34.0 Comment on above: Order Comment: Speci men Type: BLOOD SPECIMENOrdering Facility: [facility] Address: [address] [place] [address] Performed By: #### 5 8410-2 ####[facility] LABORATORYCLIA [id number] [address] [place] MCHC (RBC) [Mass/Vol] 33.4 g/dL Normal 30.5-36.[address] [facility] Comment on above: Order Comment: Speci men Type: BLOOD SPECIMENOrdering Facility: [facility] Address: [address] [place] [address] Performed By: #### 5 8410-2 ####[facility] LABORATORYCLIA [id number] [address] MCV (RBC) [Entitic vol] 84.3 fL Normal 80.0-100.0 M [facility] Comment on above: Order Comment: Speci men Type: BLOOD SPECIMENOrdering Facility: [facility] Address: [address] [place] [address] Performed By: #### 5 8410-2 ####[facility] LABORATORYCLIA [id number] [address] Nucleated RBC (Bld) [#/Vol] 10*3/uL Normal <0.01 Comment on above: Order Comment: Speci men Type: BLOOD SPECIMENOrdering Facility: [facility] Address: [address] [place] [address] Performed By: #### 5 8410-2 ####[facility] LABORATORYCLIA [id number] [address] [place] Platelet mean volume (Bld) [Entitic vol] 9.5 fL Normal 9.0-12.7 Comment on above: Order Comment: Speci men Type: BLOOD SPECIMENOrdering Facility: [facility] Address: [address] [place] [address] Performed By: #### 5 8410-2 ####[facility] LABORATORYCLIA [id number] [address] Platelets (Bld) [#/Vol] 338 10*3/uL Normal 150-400 Comment on above: Order Comment: Speci men Type: BLOOD SPECIMENOrdering Facility: [facility] Address: [address] [place] [address] Performed By: #### 5 8410-2 ####[facility] LABORATORYCLIA [id number] [address] [place] RBC (Bld) [#/Vol] 3.62 10*6/uL Low 3.90-5.20 [facility] Comment on above: Order Comment: Speci men Type: BLOOD SPECIMENOrdering Facility: [facility] Address: [address] [place] [address] Performed By: #### 5 8410-2 ####[facility] LABORATORYCLIA [id number] [place] [address] [place] WBC (Bld) [#/Vol] 15.48 10*3/uL High 3.70-11.00 [facility] Comment on above: Order Comment: Speci men Type: BLOOD SPECIMENOrdering Facility: [facility] Address: [address] [place] [address] Performed By: #### 5 8410-2 ####[facility] LABORATORYCLIA [id number] [place] [address] [place] CONSULT PROGon 11-23-2024 CONSULT PROG Normal THERAPY NTon 11-23-2024 THERAPY NT Normal THERAPY NT [facility] Bacteria Spec Anaerobe Culto n 11-22-2024 Bacteria identified Anaer cx Nom (Unsp spec) Negative Normal Comment on above: Performed By: #### 6 462-6, 635-3 ####[facility] LABCLIA [id number] [place] [address] [place] Bacteria Wnd Culton 11-22-19 25 Bacteria identified Cx Nom (Wound) ORGANISM ID: 1 Many Staphylococcus aureus Refer to specimen collected on 11/21/2024 at 10:34 PM [[id number]] GRAM STAIN: Rare Gram positive cocci Rare Polymorphonuclear leukocytes Abnormal Comment on above: Performed By: #### 6 462-6, 635-3 ####[facility] LABCLIA [id number] [place] [id number] [place] Basic metabolic 2000 panelon 11-22-2024 Anion gap [Moles/Vol] 11 mmol/L Normal 8-[address] [facility] Comment on above: Order Comment: Speci men Type: BLOOD SPECIMENOrdering Facility: [facility] Address: [address] [place] [address] Performed By: #### 2 4321-2 ####[facility] LABORATORYCLIA [id number] [place] [address] [place] Calcium [Mass/Vol] 8.2 mg/dL Low 8.5-10.2 Comment on above: Order Comment: Speci men Type: BLOOD SPECIMENOrdering Facility: [facility] Address: [address] [place] [address] Performed By: #### 2 4321-2 ####[facility] LABORATORYCLIA [id number] [place] [address] [place] [facility] [place] Chloride [Moles/Vol] 97 mmol/L Low 98-107 [facility] Comment on above: Order Comment: Speci men Type: BLOOD SPECIMENOrdering Facility: [facility] Address: [address] [place] [address] Performed By: #### 2 4321-2 ####[facility] LABORATORYCLIA [id number] [address] [place] CO2 [Moles/Vol] 25 mmol/L Normal 22-30 Comment on above: Order Comment: Speci men Type: BLOOD SPECIMENOrdering Facility: [facility] Address: [address] [place] [address] Performed By: #### 2 4321-2 ####[facility] LABORATORYCLIA [id number] [address] [place] Creatinine [Mass/Vol] 0.89 mg/dL Normal 0.58-0.[address] [facility] Comment on above: Order Comment: Speci men Type: BLOOD SPECIMENOrdering Facility: [facility] Address: [address] [place] [address] Performed By: #### 2 4321-2 ####[facility] LABORATORYCLIA [id number] [address] Creatinine and Glomerular filtration rate.predicted panel (S/P/Bld) 62 mL/min/1.73m??? Normal >=60 Comment on above: Order Comment: Speci men Type: BLOOD SPECIMENOrdering Facility: [facility] Address: [address] [place] [address] Result Comment: Hilda mated Glomerular Filtration Rate [...] actual GFR. Performed By: #### 2 4321-2 ####[facility] LABORATORYCLIA [id number] [place] [address] [place] Glucose [Mass/Vol] 291 mg/dL High 74-99 Comment on above: Order Comment: Fan men Type: BLOOD SPECIMENOrdering Facility: [facility] Address: [address] [place] [address] Result Comment: The [place] [employer] (ADA) provides guidance for cutoff [...] Standards of Medical Care in Diabetes 2016, [place] [employer]. Diabetes Care. 2016.39(Suppl 1). Performed By: #### 2 4321-2 ####[facility] LABORATORYCLIA [id number] [place] [id number] [place] Potassium [Moles/Vol] 4.1 mmol/L Normal 3.7-5.[address] [facility] Comment on above: Order Comment: Katei men Type: BLOOD SPECIMENOrdering Facility: [facility] Address: [address] [place] [id number] Performed By: #### 2 4321-2 ####[facility] LABORATORYCLIA [id number] [place] [address] [place] Sodium [Moles/Vol] 133 mmol/L Low 136-144 Comment on above: Order Comment: Speci men Type: BLOOD SPECIMENOrdering Facility: [facility] Address: [address] [place] [address] Performed By: #### 2 4321-2 ####[facility] LABORATORYCLIA [id number] [place] [address] [place] Urea nitrogen [Mass/Vol] 30 mg/dL High 7-21 Comment on above: Order Comment: Speci men Type: BLOOD SPECIMENOrdering Facility: [facility] Address: [address] [place] [address] Performed By: #### 2 4321-2 ####[facility] LABORATORYCLIA [id number] [address] [place] CASE MGT INIT ASSESon 2024 CASE MGT INIT [facility] CBC panel Auto (Bld)on 11-22 Erythrocyte distribution width (RBC) [Ratio] 15.2 % High 11.5-15.0 Comment on above: Order Comment: Speci men Type: BLOOD SPECIMENOrdering Facility: [facility] Address: [address] [place] [address] Performed By: #### 5 8410-2 ####[facility] LABORATORYCLIA [id number] [address] [place] Hematocrit (Bld) [Volume fraction] 28.5 % Low 36.0-46.0 Comment on above: Order Comment: Speci men Type: BLOOD SPECIMENOrdering Facility: [facility] Address: [address] [place] [address] Performed By: #### 5 8410-2 ####[facility] LABORATORYCLIA [id number] [address] [place] Hemoglobin (Bld) [Mass/Vol] 9.3 g/dL Low 11.5-15.5 Comment on above: Order Comment: Speci men Type: BLOOD SPECIMENOrdering Facility: [facility] Address: [address] [place] [address] Performed By: #### 5 8410-2 ####[facility] LABORATORYCLIA [id number] [address] MCH (RBC) [Entitic mass] 27.8 pg Normal 26.0-34.0 Comment on above: Order Comment: Speci men Type: BLOOD SPECIMENOrdering Facility: [facility] Address: [address] [place] [address] Performed By: #### 5 8410-2 ####VILL[facility] LABORATORYCLIA [id number] [address] [place] MCHC (RBC) [Mass/Vol] 32.6 g/dL Normal 30.5-36.[address] [facility] Comment on above: Order Comment: Speci men Type: BLOOD SPECIMENOrdering Facility: [facility] Address: [address] [place] [address] Performed By: #### 5 8410-2 ####[facility] LABORATORYCLIA [id number] [address] MCV (RBC) [Entitic vol] 85.3 fL Normal 80.0-100.0 [facility] Comment on above: Order Comment: Speci men Type: BLOOD SPECIMENOrdering Facility: [facility] Address: [address] [place] [address] Performed By: #### 5 8410-2 ####[facility] LABORATORYCLIA [id number] [address] Nucleated RBC (Bld) [#/Vol] 10*3/uL Normal <0.01 Comment on above: Order Comment: Speci men Type: BLOOD SPECIMENOrdering Facility: [facility] Address: [address] [place] [address] Performed By: #### 5 8410-2 ####[facility] LABORATORYCLIA [id number] [address] Platelet mean volume (Bld) [Entitic vol] 9.5 fL Normal 9.0-12.7 Comment on above: Order Comment: Speci men Type: BLOOD SPECIMENOrdering Facility: [facility] Address: [address] [place] [address] Performed By: #### 5 8410-2 ####[facility] LABORATORYCLIA [id number] [address] [place] Platelets (Bld) [#/Vol] 294 10*3/uL Normal 150-400 Comment on above: Order Comment: Speci men Type: BLOOD SPECIMENOrdering Facility: [facility] Address: [address] [place] [address] Performed By: #### 5 8410-2 ####[facility] LABORATORYCLIA [id number] [address] [place] RBC (Bld) [#/Vol] 3.34 10*6/uL Low 3.90-5.20 [facility] Comment on above: Order Comment: Speci men Type: BLOOD SPECIMENOrdering Facility: [facility] Address: [address] [place] [address] Performed By: #### 5 8410-2 ####[facility] LABORATORYCLIA [id number] [address] [place] WBC (Bld) [#/Vol] 15.66 10*3/uL High 3.70-11.00 [facility] Comment on above: Order Comment: Speci men Type: BLOOD SPECIMENOrdering Facility: [facility] Address: [address] [place] [address] Performed By: #### 5 8410-2 ####[facility] LABORATORYCLIA [id number] [place] [id number] [facility] [place] CONSULTon 11-22-2024 CONSULT Normal CONSULT PROGon 11-22-2024 CONSULT PROG [facility] ESR Westergren method (Bld) [Velocity]on 11-22-2024 ESR (Bld) [Velocity] 40 mm/h High 0-20 [facility] Comment on above: Order Comment: Speci men Type: BLOOD SPECIMENOrdering Facility: [facility] Address: [address] [place] [address] Performed By: #### 4 537-7 ####[facility] LABCLIA [id number] [place] [id number] [place] HISTORY PHYSICALon HISTORY PHYSICAL Normal NUTRITIONon 11-22-2024 NUTRITION Normal SEPSIS LACTATE W/ REFLEX (SE COND)on 11-22-2024 Lactate [Moles/Vol] 1.9 mmol/L Normal 0.5-2.0 [facility] Comment on above: Order Comment: Speci men Type: BLOOD SPECIMENOrdering Facility: [facility] Address: [address] [place] [address] Performed By: #### S LACT2 ####[facility] LABORATORYCLIA [id number] [address] [place] US ANKLE BRACHIAL INDICESon 11-22-2024 US ANKLE BRACHIAL INDICES Normal Bacteria Bld Culton 11-21-19 25 Bacteria identified Cx Nom (Bld) CULTURE, BLOOD: No growth 5 days Normal Comment on above: Performed By: #### 6 00-7 ####[facility] LABCLIA [id number] [address] [place] Bacteria identified Cx Nom (Bld) ORGANISM ID: 1 Gram positive diphtheroid-like bacilli Probable contaminant. Susceptibility testing will not be performed. Call lab within 72 hours to initiate workup if clinically indicated. GRAM STAIN: Gram positive bacilli Abnormal Comment on above: Performed By: #### 6 00-7 ####[facility] LABCLIA [id number] [address] [place] Bacteria Wnd Culton 11-21-19 25 Bacteria identified Cx Nom (Wound) Abnormal Comment on above: Performed By: #### 6 462-6 ####[facility] LABIA [id number] [address] [place] CBC W Auto Differential pane l (Bld)on 11-21-2024 Basophils (Bld) [#/Vol] 0.04 10*3/uL Normal <0.11 Comment on above: Order Comment: Speci men Type: BLOOD SPECIMENOrdering Facility: [facility] Address: [address] [place] [address] Performed By: #### 5 5454-3 ####[facility] LABCLIA [id number] [place] [address] [place]#### 04119-6 ####[facility] LABORATORYCLIA [id number] [place] [address] [place] Basophils/100 WBC (Bld) 0.2 % Normal [facility] Comment on above: Order Comment: Speci men Type: BLOOD SPECIMENOrdering Facility: [facility] Address: [address] [place] [address] Performed By: #### 5 5454-3 ####[facility] LABCLIA [id number] [place] [address] [place]#### 85657-8 ####[facility] LABORATORYCLIA [id number] [place] [address] [place] Differential cell count method Nom (Bld) Auto Normal Comment on above: Order Comment: Speci men Type: BLOOD SPECIMENOrdering Facility: [facility] Address: [address] [place] [address] Performed By: #### 5 5454-3 ####[facility] LABCLIA [id number] [place] [address] [place]#### 94986-3 ####[facility] LABORATORYCLIA [id number] [place] [address] [place] Eosinophils (Bld) [#/Vol] 10*3/uL Normal <0.46 Comment on above: Order Comment: Speci men Type: BLOOD SPECIMENOrdering Facility: [facility] Address: [address] [place] [address] Performed By: #### 5 5454-3 ####[facility] LABCLIA [id number] [place] [address] [place]#### 65179-3 ####[facility] LABORATORYCLIA [id number] [place] [address] [place] Eosinophils/100 WBC (Bld) 0.0 % Normal Comment on above: Order Comment: Speci men Type: BLOOD SPECIMENOrdering Facility: [facility] Address: [address] [place] [address] Performed By: #### 5 5454-3 ####[facility] LABCLIA [id number] [address]#### 06353-1 ####[facility] LABORATORYCLIA [id number] [place] [address] [place] Erythrocyte distribution width (RBC) [Ratio] 15.0 % Normal 11.5-15.0 Comment on above: Order Comment: Speci men Type: BLOOD SPECIMENOrdering Facility: [facility] Address: [address] [place] [address] Performed By: #### 5 5454-3 ####[facility] LABCLIA [id number] [address] [place]#### 75137-7 ####[facility] LABORATORYCLIA [id number] [address] [place] Hematocrit (Bld) [Volume fraction] 32.3 % Low 36.0-46.0 Comment on above: Order Comment: Speci men Type: BLOOD SPECIMENOrdering Facility: [facility] Address: [address] [place] [address] Performed By: #### 5 5454-3 ####[facility] LABCLIA [id number] [place] [address] [place]#### 63367-3 ####[facility] LABORATORYCLIA [id number] [place] [address] [place] Hemoglobin (Bld) [Mass/Vol] 10.9 g/dL Low 11.5-15.5 Comment on above: Order Comment: Speci men Type: BLOOD SPECIMENOrdering Facility: [facility] Address: [address] [place] [address] Performed By: #### 5 5454-3 ####[facility] LABCLIA [id number] [place] [address] [place]#### 26142-3 ####[facility] LABORATORYCLIA [id number] [place] [address] [place] Immature granulocytes (Bld) [#/Vol] 0.13 10*3/uL High <0.10 Comment on above: Order Comment: Speci men Type: BLOOD SPECIMENOrdering Facility: [facility] Address: [address] [place] [address] Performed By: #### 5 5454-3 ####[facility] LABCLIA [id number] [place] [address] [place]#### 75210-7 ####[facility] LABORATORYCLIA [id number] [place] [address] [place] Immature granulocytes/100 WBC (Bld) 0.7 % Normal Comment on above: Order Comment: Speci men Type: BLOOD SPECIMENOrdering Facility: [facility] Address: [address] [place] [address] Performed By: #### 5 5454-3 ####[facility] LABCLIA [id number] [place] [address] [place]#### 18252-5 ####[facility] LABORATORYCLIA [id number] [place] [address] [place] Lymphocytes (Bld) [#/Vol] 0.76 10*3/uL Low 1.00-4.00 Comment on above: Order Comment: Speci men Type: BLOOD SPECIMENOrdering Facility: [facility] Address: [address] [place] [address] Performed By: #### 5 5454-3 ####[facility] LABCLIA [id number] [place] [address] [place]#### 53737-8 ####[facility] LABORATORYCLIA [id number] [address] STATES [facility] Lymphocytes/100 WBC (Bld) 3.8 % Normal Comment on above: Order Comment: Speci men Type: BLOOD SPECIMENOrdering Facility: [facility] Address: [address] [place] [address] Performed By: #### 5 5454-3 ####[facility] LABCLIA [id number] [place] [address] [place]#### 79236-3 ####[facility]ORATORYCLIA [id number] [address] [place] MCH (RBC) [Entitic mass] 28.5 pg Normal 26.0-34.0 Comment on above: Order Comment: Speci men Type: BLOOD SPECIMENOrdering Facility: [facility] Address: [address] [place] [address] Performed By: #### 5 5454-3 ####[facility] LABCLIA [id number] [address] [place]#### 42579-5 ####[facility]ORATORYCLIA [id number] [address] [place] MCHC (RBC) [Mass/Vol] 33.7 g/dL Normal 30.5-36.[address] [facility] Comment on above: Order Comment: Speci men Type: BLOOD SPECIMENOrdering Facility: [facility] Address: [address] [place] [address] Performed By: #### 5 5454-3 ####[facility] LABCLIA [id number] [place] [address] [place]#### 12589-0 ####[facility] LABORATORYCLIA [id number] [place] [address] [place] MCV (RBC) [Entitic vol] 84.3 fL Normal 80.0-100.0 M [facility] Comment on above: Order Comment: Speci men Type: BLOOD SPECIMENOrdering Facility: [facility] Address: [address] [place] [address] Performed By: #### 5 5454-3 ####[facility] LABCLIA [id number] [place] [address] [place]#### 11852-6 ####[facility] LABORATORYCLIA [id number] [place] [address] [place] Monocytes (Bld) [#/Vol] 0.94 10*3/uL High <0.87 Comment on above: Order Comment: Speci men Type: BLOOD SPECIMENOrdering Facility: [facility] Address: [address] [place] [address] Performed By: #### 5 5454-3 ####[facility] LABCLIA [id number] [place] [address] [place]#### 96476-4 ####[facility] LABORATORYCLIA [id number] [address] [place] Monocytes/100 WBC (Bld) 4.7 % Normal [facility] Comment on above: Order Comment: Speci men Type: BLOOD SPECIMENOrdering Facility: [facility] Address: [address] [place] [address] Performed By: #### 5 5454-3 ####[facility] LABCLIA [id number] [place] [address] [place] [facility] [place]#### 19220-9 ####[facility] LABORATORYCLIA [id number] [place] [address] [place] Neutrophils (Bld) [#/Vol] 17.99 10*3/uL High 1.45-7.50 Comment on above: Order Comment: Speci men Type: BLOOD SPECIMENOrdering Facility: [facility] Address: [address] [place] [address] Performed By: #### 5 5454-3 ####[facility] LABCLIA [id number] [place] [address] [place]#### 13815-6 ####[facility] LABORATORYCLIA [id number] [address] [place] Neutrophils/100 WBC (Bld) 90.6 % Normal Comment on above: Order Comment: Speci men Type: BLOOD SPECIMENOrdering Facility: [facility] Address: [address] [place] [address] Performed By: #### 5 5454-3 ####[facility] LABCLIA [id number] [place] [address] [place]#### 43169-9 ####[facility] LABORATORYCLIA [id number] [place] [address] [place] Nucleated RBC (Bld) [#/Vol] 10*3/uL Normal <0.01 Comment on above: Order Comment: Speci men Type: BLOOD SPECIMENOrdering Facility: [facility] Address: [address] [place] [address] Performed By: #### 5 5454-3 ####[facility] LABCLIA [id number] [place] [address] [place]#### 84189-5 ####[facility] LABORATORYCLIA [id number] [address] [place] Nucleated RBC/100 WBC (Bld) [Ratio] 0.0 /100 WBC Normal Comment on above: Order Comment: Speci men Type: BLOOD SPECIMENOrdering Facility: [facility] Address: [address] [place] [address] Performed By: #### 5 5454-3 ####[facility] LABCLIA [id number] [place] [address] [place]#### 67022-3 ####[facility] LABORATORYCLIA [id number] [place] [address] [place] Platelet mean volume (Bld) [Entitic vol] 9.0 fL Normal 9.0-12.7 Comment on above: Order Comment: Speci men Type: BLOOD SPECIMENOrdering Facility: [facility] Address: [address] [place] [address] Performed By: #### 5 5454-3 ####[facility] LABCLIA [id number] [place] [address] [place] [facility] [place]#### 29603-8 ####[facility]ORATORYCLIA [id number] [place] [address] [place] Platelets (Bld) [#/Vol] 326 10*3/uL Normal 150-400 Comment on above: Order Comment: Speci men Type: BLOOD SPECIMENOrdering Facility: [facility] Address: [address] [place] [address] Performed By: #### 5 5454-3 ####[facility] LABCLIA [id number] [place] [address] [place]#### 08395-1 ####[facility] [id number] [place] [address] [place] RBC (Bld) [#/Vol] 3.83 10*6/uL Low 3.90-5.20 [facility] Comment on above: Order Comment: Speci men Type: BLOOD SPECIMENOrdering Facility: [facility] Address: [address] [place] [address] Performed By: #### 5 5454-3 ####[facility] LABCLIA [id number] [place] [address] [facility]#### 02520-9 ####[facility] [id number] [place] [address] [place] WBC (Bld) [#/Vol] 19.86 10*3/uL High 3.70-11.00 [facility] Comment on above: Order Comment: Speci men Type: BLOOD SPECIMENOrdering Facility: [facility] Address: [address] [place] [address] Performed By: #### 5 5454-3 ####[facility] LABCLIA [id number] [address] [address] [place]#### 72415-4 ####[facility]ORY[facility] [id number] [place] [address] [place] CRP SerPl-mCncon 11-21-2024 CRP [Mass/Vol] 3.8 mg/dL High <0.9 Comment on above: Order Comment: Speci men Type: BLOOD SPECIMENOrdering Facility: [facility] Address: [address] [place] [address] Performed By: #### 2 4323-8, 88541-8, 1988-03, ####[facility]ORYCLIA [id number] [place] [address] [place] Comprehensive metabolic 2000 panelon 11-21-2024 Albumin [Mass/Vol] 3.7 g/dL Low 3.9-4.9 Comment on above: Order Comment: Speci men Type: BLOOD SPECIMENOrdering Facility: [facility] Address: [address] [place] [address] Performed By: #### 2 4323-8, 22057-0, 1988-03, ####[facility] LABORATORYCLIA [id number] [place] [address] [place] ALP [Catalytic activity/Vol] 90 U/L Normal 34-123 Comment on above: Order Comment: Speci men Type: BLOOD SPECIMENOrdering Facility: [facility] Address: [address] [place] [address] Performed By: #### 2 4323-8, 11688-3, 1988-03, 53420-6 ####[facility] LABORATORYCLIA [id number] [place] [address] [place] ALT [Catalytic activity/Vol] 10 U/L Normal 7-38 Comment on above: Order Comment: Speci men Type: BLOOD SPECIMENOrdering Facility: [facility] Address: [address] [place] [address] Performed By: #### 2 4323-8, 66587-6, 1988-03, ####[facility] LABORATORYCLIA [id number] [place] [address] [facility] Anion gap [Moles/Vol] 13 mmol/L Normal 8-[address] [facility] Comment on above: Order Comment: Speci men Type: BLOOD SPECIMENOrdering Facility: [facility] Address: [address] [facility] [address] Performed By: #### 2 4323-8, 04207-1, 1988-03, ####VILLAR[facility] LABORATORYCLIA [id number] [place] [address] [place] AST [Catalytic activity/Vol] 14 U/L Normal 13-35 Comment on above: Order Comment: Speci men Type: BLOOD SPECIMENOrdering Facility: [facility] Address: [facility] [place] [address] Performed By: #### 2 4323-8, 93183-3, 1988-03, ####[facility]ILLAR[facility] LABORATORYCLIA [id number] [place] [address] [place] Bilirubin [Mass/Vol] 0.2 mg/dL Normal 0.2-1.3 [facility] Comment on above: Order Comment: Speci men Type: BLOOD SPECIMENOrdering Facility: [facility] Address: [address] [place] [address] Performed By: #### 2 4323-8, 81578-1, 1988-03, ####[facility]ILL[facility] LABORATORYCLIA [id number] [address] [place] Calcium [Mass/Vol] 9.3 mg/dL Normal 8.5-10.2 Comment on above: Order Comment: Speci men Type: BLOOD SPECIMENOrdering Facility: [facility] Address: [address] [place] [address] Performed By: #### 2 4323-8, , 1988-03, ####[facility] LABORATORYCLIA [id number] [place] [address] [place] Chloride [Moles/Vol] 96 mmol/L Low 98-107 [facility] Comment on above: Order Comment: Fan meade Type: BLOOD SPECIMENOrdering Facility: [facility] Address: [address] [place] [address] Performed By: #### 2 4323-8, 59169-4, 1988-03, ####[facility] LABORATORYCLIA [id number] [place] [id number] [place] CO2 [Moles/Vol] 25 mmol/L Normal 22-30 Comment on above: Order Comment: Fan meade Type: BLOOD SPECIMENOrdering Facility: [facility] Address: [address] [place] [address] Performed By: #### 2 4323-8, 11548-9, 1988-03, ####[facility] LABORATORYCLIA [id number] [place] [id number] [place] Creatinine [Mass/Vol] 1.02 mg/dL High 0.58-0.[address] [facility] Comment on above: Order Comment: Fan meade Type: BLOOD SPECIMENOrdering Facility: [facility] Address: [address] [place] [address] Performed By: #### 2 4323-8, 52145-1, 1988-03, ####[facility] LABORATORYCLIA [id number] [address] OF [facility] Creatinine and Glomerular filtration rate.predicted panel (S/P/Bld) 53 mL/min/1.73m??? Low >=60 Comment on above: Order Comment: Fan meade Type: BLOOD SPECIMENOrdering Facility: [facility] Address: [address] [place] [address] Result Comment: Hilda mated Glomerular Filtration Rate [...] actual GFR. Performed By: #### 2 4323-8, 66651-8, 1988-03, ####[facility] LABORATORYCLIA [id number] [place] [address] [place] Glucose [Mass/Vol] 314 mg/dL High 74-99 Comment on above: Order Comment: Fan meade Type: BLOOD SPECIMENOrdering Facility: [facility] Address: [address] [address] Result Comment: The [place] Diabetes Association (ADA) provides guidance for cutoff [...] Standards of Medical Care in Diabetes 2016, [place] Diabetes Association. Diabetes Care. 2016.39(Suppl 1). Performed By: #### 2 4323-8, 09994-9, 1988-03, ####[facility] LABORATORYCLIA [id number] [place] [id number] [place] Potassium [Moles/Vol] 4.7 mmol/L Normal 3.7-5.[address] [facility] Comment on above: Order Comment: Fan meade Type: BLOOD SPECIMENOrdering Facility: [facility] Address: [address] [place] [address] Performed By: #### 2 4323-8, 64973-0, 1988-03, ####[facility] LABORATORYCLIA [id number] [place] [address] [place] Protein [Mass/Vol] 6.4 g/dL Normal 6.3-8.0 Comment on above: Order Comment: Speci men Type: BLOOD SPECIMENOrdering Facility: [facility] Address: [address] [place] [address] Performed By: #### 2 4323-8, 78405-2, 1988-03, 75635-6 ####[facility]ILLAR[facility] LABORATORYCLIA [id number] [place] [address] [place] Sodium [Moles/Vol] 134 mmol/L Low 136-144 Comment on above: Order Comment: Speci men Type: BLOOD SPECIMENOrdering Facility: [facility] Address: [address] [place] [address] Performed By: #### 2 4323-8, 02447-0, 1988-03, 00563-1 ####[facility] LABORATORYCLIA [id number] [place] [id number] [place] Urea nitrogen [Mass/Vol] 37 mg/dL High 7-21 Comment on above: Order Comment: Speci men Type: BLOOD SPECIMENOrdering Facility: [facility] Address: [address] [place] [address] Performed By: #### 2 4323-8, 50209-3, 1988-03, 51743-5 ####[facility] LABORATORYCLIA [id number] [address] [place] ED PROV NOTEon 11-21-2024 ED PROV NOTE Normal ED Triage Noteon 11-21-2024 ED Triage Note Normal HbA1c (Bld)on 11-21-2024 Average glucose Estimated from glycated hemoglobin (Bld) [Mass/Vol] 252 mg/dL Normal Comment on above: Order Comment: Speci men Type: BLOOD SPECIMENOrdering Facility: [facility] Address: [address] [place] [address] Result Comment: eAG: (Estimated average glucose) is a calculated value from HgbA1c and is bank representative of the average blood glucose level in the last 2-3 month period. Performed By: #### 5 5454-3 ####[facility] LABCLIA [id number] [facility] [id number] [place]#### [address]-4 ####[facility] LABORATORYCLIA [id number] [address] [place] HbA1c (Bld) [Mass fraction] 10.4 % High 4.3-5.6 Comment on above: Order Comment: Fan meade Type: BLOOD SPECIMENOrdering Facility: [facility] Address: [address] [place] [address] Result Comment: Amer ican Diabetes Association guidelines indicate that patients with HgbA1c in the range 5.7-6.4% are at increased risk for development of diabetes, and intervention by lifestyle modification may be beneficial. HgbA1c greater or equal to 6.5% is considered diagnostic of diabetes. Performed By: #### 5 5454-3 ####[facility] LABCLIA [id number] [address] [place]#### [address]-0 ####[facility] LABORATORYCLIA [id number] [address] [place] NT-proBNP SerPl-mCncon 11-21 Natriuretic peptide.B prohormone N-Terminal [Mass/Vol] 1157 pg/mL High <450 Comment on above: Order Comment: Fan meade Type: BLOOD SPECIMENOrdering Facility: [facility] Address: [address] [place] [address] Performed By: #### 2 4323-8, 10050-7, 1987-, 70573-0 ####[facility] LABORATORYCLIA [id number] [address] Procalcitonin SerPl-mCncon 0 11-21-2024 Procalcitonin [Mass/Vol] 0.14 ng/mL High <0.09 Comment on above: Order Comment: Fan meade Type: BLOOD SPECIMENOrdering Facility: [facility] Address: [address] [place] [address] Result Comment: For a guided interpretation of test results, please visit the Change in Procalcitonin Calculator, [email or web address]. Performed By: #### 2 4323-8, 36496-9, 1987-5, 46929-8 ####[facility] LABORATORYCLIA [id number] [place] [address] [place] SEPSIS LACTATE W/ REFLEX (IN ITIAL)on 11-21-2024 Lactate [Moles/Vol] 2.2 mmol/L High 0.5-2.0 [facility] Comment on above: Order Comment: Speci men Type: BLOOD SPECIMENOrdering Facility: [facility] Address: [address] [place] [address] Performed By: #### S LACTR ####[facility] LABORATORYCLIA [id number] [place] [address] [place] XR ANKLE 3V AP/LAT/OBL RTon 11-21-2024 XR ANKLE 3V AP/LAT/OBL RT Normal CBC W Auto Differential pane l (Bld)on 11-19-2024 Basophils (Bld) [#/Vol] 0.05 10*3/uL Normal <0.11 [facility] Comment on above: Order Comment: Speci men Type: BLOOD SPECIMENOrdering Facility: [facility] Address: [address] [place] [address] Performed By: #### 5 7021-8 ####[facility] LABCLIA [id number] [place] [address] [place] Basophils/100 WBC (Bld) 0.5 % Normal [facility] Comment on above: Order Comment: Speci men Type: BLOOD SPECIMENOrdering Facility: [facility] Address: [address] [place] [address] Performed By: #### 5 7021-8 ####[facility] LABCLIA [id number] [place] [address] [place] Differential cell count method Nom (Bld) Auto Normal [facility] Comment on above: Order Comment: Speci men Type: BLOOD SPECIMENOrdering Facility: [facility] Address: [address] [place] [address] Performed By: #### 5 7021-8 ####[facility] LABCLIA [id number] [place] [address] [place] Eosinophils (Bld) [#/Vol] 0.12 10*3/uL Normal <0.46 [facility] Comment on above: Order Comment: Speci men Type: BLOOD SPECIMENOrdering Facility: [facility] Address: [address] [place] [address] Performed By: #### 5 7021-8 ####[facility] LABCLIA [id number] [place] [address] [place] Eosinophils/100 WBC (Bld) 1.3 % Normal [facility] Comment on above: Order Comment: Speci men Type: BLOOD SPECIMENOrdering Facility: [facility] Address: [address] [place] [address] Performed By: #### 5 7021-8 ####[facility] LABIA [id number] [place] [address] [place] Erythrocyte distribution width (RBC) [Ratio] 14.8 % Normal 11.5-15.0 [facility] Comment on above: Order Comment: Speci men Type: BLOOD SPECIMENOrdering Facility: [facility] Address: [address] [place] [address] Performed By: #### 5 7021-8 ####[facility] LABIA [id number] [place] [address] [place] Hematocrit (Bld) [Volume fraction] 35.8 % Low 36.0-46.0 [facility] Comment on above: Order Comment: Speci men Type: BLOOD SPECIMENOrdering Facility: [facility] Address: [address] [place] [address] Performed By: #### 5 7021-8 ####[facility] LABCLIA [id number] [place] [address] [place] Hemoglobin (Bld) [Mass/Vol] 11.5 g/dL Normal 11.5-15.5 [facility] Comment on above: Order Comment: Speci men Type: BLOOD SPECIMENOrdering Facility: [facility] Address: [address] [place] [address] Performed By: #### 5 7021-8 ####[facility] LABCLIA [id number] [place] [address] [place] Immature granulocytes (Bld) [#/Vol] 0.07 10*3/uL Normal <0.10 [facility] Comment on above: Order Comment: Speci men Type: BLOOD SPECIMENOrdering Facility: [facility] Address: [address] [place] [address] Performed By: #### 5 7021-8 ####[facility] LABCLIA [id number] [place] [address] [place] Immature granulocytes/100 WBC (Bld) 0.7 % Normal [facility] Comment on above: Order Comment: Speci men Type: BLOOD SPECIMENOrdering Facility: [facility] Address: [address] [place] [address] Performed By: #### 5 7021-8 ####[facility] LABCLIA [id number] [place] [address] [place] Lymphocytes (Bld) [#/Vol] 1.19 10*3/uL Normal 1.00-4.00 [facility] Comment on above: Order Comment: Speci men Type: BLOOD SPECIMENOrdering Facility: [facility] Address: [address] [place] [address] Performed By: #### 5 7021-8 ####[facility] LABCLIA [id number] [place] [address] [place] Lymphocytes/100 WBC (Bld) 12.7 % Normal [facility] Comment on above: Order Comment: Speci men Type: BLOOD SPECIMENOrdering Facility: [facility] Address: [address] [place] [address] Performed By: #### 5 7021-8 ####[facility] LABIA [id number] [place] [address] [place] MCH (RBC) [Entitic mass] 28.0 pg Normal 26.0-34.0 [facility] Comment on above: Order Comment: Speci men Type: BLOOD SPECIMENOrdering Facility: [facility] Address: [address] [place] [address] Performed By: #### 5 7021-8 ####[facility] LABIA [id number] [place] [address] [place] MCHC (RBC) [Mass/Vol] 32.1 g/dL Normal 30.5-36.0 [facility] Comment on above: Order Comment: Speci men Type: BLOOD SPECIMENOrdering Facility: [facility] Address: [address] [place] [address] Performed By: #### 5 7021-8 ####[facility] [id number] [place] [address] [place] MCV (RBC) [Entitic vol] 87.1 fL Normal 80.0-100.0 [facility] Comment on above: Order Comment: Speci men Type: BLOOD SPECIMENOrdering Facility: [facility] Address: [address] [place] [address] Performed By: #### 5 7021-8 ####[facility] [id number] [place] [address] [place] Monocytes (Bld) [#/Vol] 0.67 10*3/uL Normal <0.87 [facility] Comment on above: Order Comment: Speci men Type: BLOOD SPECIMENOrdering Facility: [facility] Address: [address] [place] [address] Performed By: #### 5 7021-8 ####[facility] LAB[facility] [id number] [place] [address] [place] Monocytes/100 WBC (Bld) 7.1 % Normal [facility] Comment on above: Order Comment: Speci men Type: BLOOD SPECIMENOrdering Facility: [facility] Address: [address] [place] [address] Performed By: #### 5 7021-8 ####[facility] LABCLIA [id number] [place] [address] [place] Neutrophils (Bld) [#/Vol] 7.29 10*3/uL Normal 1.45-7.50 [facility] Comment on above: Order Comment: Speci men Type: BLOOD SPECIMENOrdering Facility: [facility] Address: [address] [place] [address] Performed By: #### 5 7021-8 ####[facility] LABCLIA [id number] [place] [address] [place] Neutrophils/100 WBC (Bld) 77.7 % Normal [facility] Comment on above: Order Comment: Speci men Type: BLOOD SPECIMENOrdering Facility: [facility] Address: [address] [place] [address] Performed By: #### 5 7021-8 ####[facility] LABCLIA [id number] [place] [address] [place] Nucleated RBC (Bld) [#/Vol] 10*3/uL Normal <0.01 [facility] Comment on above: Order Comment: Speci men Type: BLOOD SPECIMENOrdering Facility: [facility] Address: [address] [place] [address] Performed By: #### 5 7021-8 ####[facility] LABCLIA [id number] [place] [address] [place] Nucleated RBC/100 WBC (Bld) [Ratio] 0.0 /100 WBC Normal [facility] Comment on above: Order Comment: Speci men Type: BLOOD SPECIMENOrdering Facility: [facility] Address: [address] [place] [address] Performed By: #### 5 7021-8 ####[facility] LABCLIA [id number] [place] [address] [place] Platelet mean volume (Bld) [Entitic vol] 9.6 fL Normal 9.0-12.7 [facility] Comment on above: Order Comment: Speci men Type: BLOOD SPECIMENOrdering Facility: [facility] Address: [address] [place] [address] Performed By: #### 5 7021-8 ####[facility] LABCLIA [id number] [place] [address] [place] Platelets (Bld) [#/Vol] 405 10*3/uL High 150-400 [facility] Comment on above: Order Comment: Speci men Type: BLOOD SPECIMENOrdering Facility: [facility] Address: [address] [place] [address] Performed By: #### 5 7021-8 ####[facility] LABCLIA [id number] [place] [address] [place] RBC (Bld) [#/Vol] 4.11 10*6/uL Normal 3.90-5.20 [facility] Comment on above: Order Comment: Speci men Type: BLOOD SPECIMENOrdering Facility: [facility] Address: [address] [place] [address] Performed By: #### 5 7021-8 ####[facility] LABCLIA [id number] [place] [address] [place] WBC (Bld) [#/Vol] 9.39 10*3/uL Normal 3.70-11.00 [facility] Comment on above: Order Comment: Speci men Type: BLOOD SPECIMENOrdering Facility: [facility] Address: [address] [place] [address] Performed By: #### 5 7021-8 ####[facility] LABCLIA [id number] [place] [address] [place] Ferritin SerPl-mCncon 2024 Ferritin [Mass/Vol] 39.6 ng/mL Normal 14.7-205.1 [facility] Comment on above: Order Comment: Speci men Type: BLOOD SPECIMENOrdering Facility: [facility] Address: [address] [place] [address] Performed By: #### 5 0190-8, 2275- ####[facility] LABCLIA [id number] [place] [address] [place] Iron and Iron binding capaci ty panelon 11-19-2024 Iron [Mass/Vol] 65 ug/dL Normal 41-186 [facility] Comment on above: Order Comment: Speci men Type: BLOOD SPECIMENOrdering Facility: [facility] Address: [address] [place] [address] Performed By: #### 5 0190-8, 2276-02 ####[facility] LABCLIA [id number] [place] [address] [place] Iron binding capacity [Mass/Vol] 392 ug/dL High 232-386 [facility] Comment on above: Order Comment: Speci men Type: BLOOD SPECIMENOrdering Facility: [facility] Address: [address] [place] [address] Performed By: #### 5 0190-8, 2276-02 ####[facility] LABCLIA [id number] [place] [address] [place] Iron/TIBC [Molar ratio] 16.6 % Normal 15.0-57.0 [facility] Comment on above: Order Comment: Speci men Type: BLOOD SPECIMENOrdering Facility: [facility] Address: [address] [place] [address] Performed By: #### 5 0190-8, 2275- ####[facility] LABCLIA [id number] [place] [address] [place] MR Ankle - right WO contrast on 11-19-2024 IMPRESSION: Nonspecific circumferential subcutaneous/soft tissue edema involving the distal leg and ankle. Muscle fatty changes and edema which may be related to disuse. Moderate midfoot osteoarthritis. No evidence of inflammatory arthritis. [facility] Director: PHU Transcribe Date/Time: Nov 19 2024 10:47A Dictated by : CHANDNI ZIMMERMAN MD This examination was interpreted and the report reviewed and electronically signed by: LAZARO OHARA MD on Nov 19 2024 1:28PM [facility] DIVISION OF RADIOLOGY * * *Final [...] significant additional findings. DIVISION OF RADIOLOGY Provider, [facility]iatric [facility] - 11/19/2024 * * *Final Report* * [...] midfoot osteoarthritis. No evidence of inflammatory arthritis. [facility] Director: PSCB Transcribe Date/Time: Nov 19 2024 10:47A Dictated by : CHANDNI ZIMMERMAN MD This examination was interpreted and the report reviewed and electronically signed by: LAZARO OHARA MD on Nov 19 2024 1:28PM EST [facility] Radiology Study observation (narrative) Mira archibald [facility] MR Ankle - right WO contrast Ordered By: Ccf Provider on 11-19-2024 [facility] MRI ANKLE WO IVCON RTon [...] midfoot osteoarthritis. No evidence of inflammatory arthritis. [facility] Director: PSCMary Transcribe Date/Time: Nov 19 2024 10:47A Dictated by : CHANDNI ZIMMERMAN MD This examination was interpreted and the report reviewed and electronically signed by: LAZARO OHARA MD on Nov 19 2024 1:28PM EST [id number] Normal [facility] Zinc SerPl-mCncon 11-19-2024 Zinc [Mass/Vol] 55 ug/dL Low 60-120 [facility] Comment on above: Order Comment: Speci men Type: BLOOD SPECIMEN [facility] Address: [address] [place] [address] Result Comment: This test was developed, and its performance characteristics determined by the [facility] Department of Pathology and Laboratory Medicine. It has not been cleared or approved by the FDA. The [facility] Department of Pathology and Laboratory Medicine is regulated under CLIA as qualified to perform high-complexity testing. This test is used for clinical purposes. It should not be regarded as investigational or for research. Performed By: #### 2 132-9, 2276-4, 11928-1, 2284-8 #### [facility] CLIA [id number] [address] [place] [address] 11-06-2024 CNPN Telephone ([facility]) YUSUF MEDINA ([id number]) 1935 [facility] Date Time Provider Department 11/06/24 WILLIE KAUR [facility] During your visit today, we recorded the following information about you: Willie Kaur APRN.CNP 11/06/2024 8:58 AM Signed Currently has Rheumatology scheduled 01/04/25. Are there any sooner appointments and would family be interested? She has been seeing Hematology and they think that her abnormal blood work may have a Rheumatology cause. BRI Suárez Vanessa 11/06/2024 9:16 AM Signed Patient took a [...] this patient by: CAREGIVER José Miguel Swanson [facility] Problem List As Of Date 11/06/2024 Noted [...] 07/17/2013 05/11/2016 (more content not included)... 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 Patient is leaving to [place] for 2 weeks I will schedule lab [...] BLOOD COUNT AND DIFFERENTIAL [SQCBCDIF] Order #: [id number] FUTURE IRON AND TIBC [SQIRON] Order #: [id number] FUTURE FERRITIN [SQFERR] Order #: [id number] FUTURE ZINC BLD [SQZINC] Order #: [id number] FUTURE Prescriptions as of 11/05/2024 - meloxicam (MOBIC) 15 mg tablet TAKE 1 TABLET BY MOUTH ONCE DAILY NEEDED FOR PAIN. DO NOT COMBINE WITH DICLOFENAC GEL - traZODone (DESYREL) 50 mg tablet Take 1 tablet by mouth at bedtime as needed for sedation. - blood sugar diagnostic (RelatientUCH ULTRA TEST) test strip Test blood sugar [...] this patient by: CAREGIVER José Miguel Swanson [facility] Problem List As Of Date 11/05/2024 Noted [...] [N18.9] 05/11/2016 (more content not included)... Normal [facility] CNOVon 11-01-2024 CNOV Office Visit ([facility] ) YUSUF MEDINA ([id number]) 1935 F [facility] Date Time Provider Department 11/01/24 2:50 PM [facility] your visit today, we recorded [...] L REMV CATARACT EXTRACAP,INSERT LENS Bilateral 2020 [facility] Family History: FAMILY HISTORY Problem Relation Age of Onset None Brother None Sister None Brother Medications: Current Outpatient Medications Medication Sig meloxicam (MOBIC) 15 mg tablet TAKE 1 TABLET BY MOUTH ONCE DAILY NEEDED FOR PAIN. DO NOT COMBINE WITH DICLOFENAC GEL traZODone (DESYREL) 50 mg tablet Take 1 tablet by mouth at bedtime as needed for sedation. blood sugar diagnostic (GeoCitiesTOUCH ULTRA TEST) test strip Test blood sugar [...] Plan: Rig (more content not included)... Normal [facility] CRP SerPl-ncon 11-01-2024 CRP [Mass/Vol] 0.3 mg/dL Normal <0.9 [facility] Comment on above: Order Comment: Speci men Type: BLOOD SPECIMEN Ordering Facility: [facility] Address: [address] [place] [address] Performed By: #### 2 132-9, 2276-4, 33581-3, 2284-8 #### [facility] CLIA [id number] [address] [place] [address] [place] [address] [place] ESR Westergren method (Bld) [Velocity]on 11-01-2024 ESR (Bld) [Velocity] 36 mm/h High 0-20 [facility] Comment on above: Order Comment: Speci men Type: BLOOD SPECIMEN Ordering Facility: [facility] Address: [address] [place] [address] Performed By: #### 2 132-9, 2276-4, 28261-9, 2284-8 #### [facility] CLIA [id number] [address] [place] [address] [place] [facility] XR ANKLE 3V AP/LAT/OBL RTon 11-01-2024 XR [...] planus and mild to moderate midfoot osteoarthritis. [facility] [employer] Director: PSCB Transcribe Date/Time: Nov 02 2024 11:17A Dictated by : SHARYN UMANA MD This examination was interpreted and the report reviewed and electronically signed by: SHARYN UMANA MD on Nov 02 2024 11:20AM EST [id number] Normal [facility] XR FOOT 3V AP/LAT/OBL RTon 1 01-02-2024 [...] planus and mild to moderate midfoot osteoarthritis. [facility] [employer] Director: PHU Transcribe Date/Time: Nov 02 2024 11:17A Dictated by : SHARYN UMANA MD This examination was interpreted and the report reviewed and electronically signed by: SHARYN UMANA MD on Nov 02 2024 11:20AM EST [id number] Normal [facility] CNOVon 10-29-2024 CNOV Office Visit ([facility] ) YUSUF MEDINA ([id number]) 1935 F [place] Date Time Provider Department 10/29/24 4:20 PM AB BENSON [facility] During your visit today, we recorded the following information about you: Temperature Pulse Blood pressure Weight 99.3 degrees 66/minute 159/72 48 kg Ab Benson MD 11/04/2024 7:29 PM Signed This note was created using NoteWriter. Subjective [...] needed for sedation. - blood sugar diagnostic (RelatientUCH ULTRA TEST) test strip Test blood sugar [...] this patient by: CAREGIVER José Miguel Swanson [facility] Problem List As Of Date 10/29/2024 Noted [...] intervert*10/31/2010 Osteoart (more content not included)... Normal [facility] CNOVon 09-20-2024 CNOV Office Visit (OT[facility] ) YUSUF MEDINA ([id number]) 1935 F [place] Date Time Provider Department [...] L REMV CATARACT EXTRACAP,INSERT LENS Bilateral 2020 [facility] Family History: FAMILY HISTORY Problem Relation Age of Onset None Brother None Sister None Brother Medications: Current Outpatient Medications Medication Sig traZODone (DESYREL) 50 mg tablet Take 1 tablet by mouth at bedtime as needed for sedation. blood sugar diagnostic (RelatientUCH ULTRA TEST) test strip Test blood sugar [...] malleolus NTTP (more content not included)... Normal [facility] BCR/ABL1 P210 AND P190 DIAGN OSTIC PCR BLOODon 09-19-2024 BCR/ABL1 P210 AND P190 DIAGNOSTIC PCR BLOOD RESULT BCR/ABL1 p210 and p190 Diagnostic PCR Laboratory Accession Number: [id number] Sample Type: Peripheral Blood Result: NOT DETECTED; [...] this sample, and cDNA prepared by reverse stitcher standard machine. Real time PCR was performed in two separate reactions, using primers for e13a2 and/or e14a2 BCR/ABL1 fusion transcripts and ABL1 transcripts for p210 detection and primers for e1a2 BCR/ABL1 fusion transcripts and ABL1 transcripts for p190 detection (QuantideX BCR/ABL IS assay, [employer], [place], [place]). This assay has a limit [...] developed and its performance characteristics determined by [facility]'s Pathology and Laboratory Medicine Department. It has not been cleared or approved by the FDA. [facility]'s Pathology and Laboratory Medicine Department is regulated under CLIA as certified to perform high-complexity testing. This test is used for clinical purposes. It should not be regarded as investigational or for research. Testing and interpretation performed at [facility], [address] [place], [place] [address]. CLIA Number: [id number] As reviewed by José Miguel Persaud MD [facility] METHYLMALONIC ACIDon 024 Methylmalonate [Moles/Vol] 0.29 umol/L NINF - 0.40 umol/L [facility] Comment on above: This test was develo ped, and its performance characteristics determined by the [facility] Department of Pathology and Laboratory Medicine. It has not been cleared or approved by the FDA. The [facility] Department of Pathology and Laboratory Medicine is regulated under CLIA as qualified to perform high-complexity testing. This test is used for clinical purposes. It should not be regarded as investigational or for research. Methylmalonate [Moles/Vol]on 09-19-2024 Interpretation and review of laboratory results Normal [facility] XR CALCANEUS 2V AXIAL/LAT RT on 09-19-2024 [...] planus with calcaneal enthesophytes and bone demineralization. [facility] [employer] Director: PSCB Transcribe Date/Time: Sep 21 2024 11:34A Dictated by : ALEJANDRA MONCADA MD This examination was interpreted and the report reviewed and electronically signed by: ALEJANDRA MONCADA MD on Sep 21 2024 11:39AM EST [id number] Normal [facility] XR FOOT 3V AP/LAT/OBL RTon 1 11-19-2023 [...] toes with hammertoe deformities. 4. Calcaneal enthesophytes. [facility] [employer] Director: PSCB Transcribe Date/Time: Sep 21 2024 11:40A Dictated by : ALEJANDRA MONCADA MD This examination was interpreted and the report reviewed and electronically signed by: ALEJANDRA MONCADA MD on Sep 21 2024 11:59AM EST [id number] Normal [facility] CCP ANTIBODY IGGOrdered By: Robin Zavala on 09-18-2024 Cyclic citrullinated peptide IgG Qn NINF [facility] CNPNon 09-18-2024 CNPN Telephone (HEMAST) YUSUF MEDINA ([id number]) 1935 [facility] Date Time Provider Department 09/18/24 [facility]UPO MENDEZ [facility] During your visit today, we recorded the following information about you: Grupo Mendez MD 09/18/2024 9:19 PM Signed Results were reviewed. I spoke with [id number] Demetria about suspicion for calcaneal bone fracture. [...] initial encounter [S92.001A] Order(s):CONSULT PANEL TO ORTHOPAEDICS [207430] Order #: [id number]: [id number] FUTURE Prescriptions as of 09/18/2024 - traZODone (DESYREL) 50 mg tablet Take 1 tablet by mouth at bedtime as needed for sedation. - blood sugar diagnostic (AppSame ULTRA TEST) test strip Test blood sugar [...] this patient by: CAREGIVER José Miguel Swanson [facility] Problem List As Of Date 09/18/2024 Noted [...] dependent (NIDDM*03/07 (more content not included)... Normal [facility] COPPER BLOODon 09-18-2024 Copper [Mass/Vol] 128 ug/dL 80 - 155 ug/dL [facility] Comment on above: This test was deviselao ped, and its performance characteristics determined by the [facility] Department of Pathology and Laboratory Medicine. It has not been cleared or approved by the FDA. The [facility] Department of Pathology and Laboratory Medicine is regulated under CLIA as qualified to perform high-complexity testing. This test is used for clinical purposes. It should not be regarded as investigational or for research. Interpretation and review of laboratory results Normal [facility] Cyclic citrullinated peptide IgG QnOrdered By: Robin Zavala on 09-18-2024 CCP Antibody IgG Qualitative Negative Negative [facility] Interpretation and review of laboratory results Normal [facility] This test is used as aid in diagnosis of Rheumatoid arthritis (RA). A negative result cannot rule out RA where clinically suspected. Clinical correlation is required. The following results were obtained with an [employer] QUANTA Lite CCP IgG JOE. Cyclic Citrullinated Peptide IgG values obtained with different manufacturers' assay methods may not be used interchangeably. The magnitude of the reported IgG levels cannot be correlated to an endpoint titer. [facility] FERRITINon 09-18-2024 Ferritin [Mass/Vol] 59.9 ng/mL 14.7 - 2 05.1 ng/mL [facility] FOLATE, SERUMon 09-18-2024 Folate [Mass/Vol] 18.8 ng/mL 4.7 - PINF ng/mL [facility] Ferritin [Mass/Vol]on 2023 Interpretation and review of laboratory results Normal [facility] HOMOCYSTEINEon 09-18-2024 Homocysteine [Moles/Vol] 21.2 umol/L High NINF - 15.1 umol/L [facility] Homocysteine [Moles/Vol]on 11-18-2023 Interpretation and review of laboratory results Abnormal [facility] Iron and Iron binding capaci ty panelon 09-18-2024 Interpretation and review of laboratory results Abnormal [facility] Iron [Mass/Vol] 29 ug/dL Low 41 - 186 ug/dL [facility] Iron binding capacity [Mass/Vol] 407 ug/dL High 232 - 386 ug/dL [facility] Iron/TIBC [Molar ratio] 7.1 % Low 15.0 - 57.0 % [facility] No Panel InformationOrdered By: Cheryl Sinha on 09-18-2024 [facility] No Panel Informationon 09-18 Interpretation and review of laboratory results Normal [facility] Nuclear Ab IA Ql (S)Ordered By: Lien Matson on 09-18-2024 RUBEN Scr Qual Positive Abnormal Negative [facility] Comment on above: The qualitative anti nuclear antibody screen test performed using the following antigens: dsDNA, Chromatin, Ribosomal P, SS-A 60, SS-A 52, SS-B, Sm, SmRNP, ENVIRONMENTAL SCIENCE PROFESSOR A, ENVIRONMENTAL SCIENCE PROFESSOR 68, Scl-70, Nadege-1, and Centromere B. Methodology: Multiplex flow immunoassay. Interpretation and review of laboratory results Abnormal [facility] URIC ACIDon 09-18-2024 Urate [Mass/Vol] 5.6 mg/dL 2.5 - 6.6 mg/dL [facility] US DVT LOWER RTon 09-18-2024 US DVT LOWER RT Normal US Lower extremity vein - ri elaina 09-18-2024 IMPRESSION: Negative study for proximal DVT in the right lower extremity. Negative study for calf DVT in the right lower extremity. Negative study for superficial thrombophlebitis in the imaged segments of the right lower extremity. [employer] Director: PHU Transcribe Date/Time: Sep 18 2024 9:14A Dictated by : ZACH THOMPSON MD This examination was interpreted and the report reviewed and electronically signed by: ZACH THOMPSON MD on Sep 18 2024 9:20AM EST [facility] * * *Final Report* * * [...] spontaneous respirophasic flow. Normal response to augmentation. [facility] Provider, Kalyan Rowley - 09/18/2024 * [...] imaged segments of the right lower extremity. [facility] [employer] Director: PSCB Transcribe Date/Time: Sep 18 2024 9:14A Dictated by : ZACH THOMPSON MD This examination was interpreted and the report reviewed and electronically signed by: ZACH THOMPSON MD on Sep 18 2024 9:20AM EST [facility] Radiology Study observation (narrative) Mira Miranda US Lower extremity vein - ri ghtOrdered By: Ccf Provider on 09-18-2024 [facility] Urate [Mass/Vol]on Interpretation and review of laboratory results Normal [facility] VITAMIN B12on 09-18-2024 Cobalamin (Vitamin B12) [Mass/Vol] 433 pg/mL 232 - 1245 pg/mL [facility] XR Ankle - right AP and Late ral and obliqueon 09-18-2024 IMPRESSION: Marked right ankle soft tissue swelling. Osteopenia and suspicion of nondisplaced calcaneus fracture. Degenerative changes, calcaneal enthesophytes, and pes planus. [facility] [employer] Director: PSCB Transcribe Date/Time: Sep 18 2024 12:20P Dictated by : GERTRUDIS MONCADA MD This examination was interpreted and the report reviewed and electronically signed by: GERTRUDIS MONCADA MD on Sep 18 2024 12:22PM [facility] DIVISION OF RADIOLOGY * * *Final [...] ankle. Atherosclerotic calcifications. DIVISION OF RADIOLOGY Provider, [facility] - 09/18/2024 * * *Final [...] Degenerative changes, calcaneal enthesophytes, and pes planus. [facility] Director: PSCB Transcribe Date/Time: Sep 18 2024 12:20P Dictated by : GERTRUDIS MONCADA MD This examination was interpreted and the report reviewed and electronically signed by: GERTRUDIS MONCADA MD on Sep 18 2024 12:22PM EST [facility] XR Ankle - right AP and Late ral and obliqueOrdered By: Ccf Provider on 09-18-2024 [facility] ZINC BLDOrdered By: Cheryl rodriguez on 09-18-2024 Zinc [Mass/Vol] 55 ug/dL Low 60 - 120 ug/dL [facility] Comment on above: This test was develo ped, and its performance characteristics determined by the [facility] Department of Pathology and Laboratory Medicine. It has not been cleared or approved by the FDA. The [facility] Department of Pathology and Laboratory Medicine is regulated under CLIA as qualified to perform high-complexity testing. This test is used for clinical purposes. It should not be regarded as investigational or for research. Zinc [Mass/Vol]Ordered By: Roxane Sinha on 09-18-2024 Interpretation and review of laboratory results Abnormal [facility] RUBEN BY IFA SCREENon 09-17-20 24 Nuclear Ab pattern (S) [Interp] Nuclear homogeneous Normal [facility] Comment on above: Order Comment: Fan meade Type: BLOOD SPECIMEN Ordering Facility: [facility] Address: [address] [place] [address] Performed By: #### 2 132-9, 2276-4, 50684-0, 2284-8 #### [facility] CLIA [id number] [address] [place] [address] [place] [address] [place] Nuclear Ab Ql (S) Positive Abnormal Negative [facility] Comment on above: Order Comment: Speci men Type: BLOOD SPECIMEN Ordering Facility: [facility] Address: [address] [place] [address] Result Comment: Anti -nuclear antibody test is used as an aid in diagnosis of systemic autoimmune diseases. Where positive and clinically warranted, follow-up using disease-specific testing is recommended. Low positive titers are not uncommon with advanced age, certain chronic infections, and malignancies among others. Test methodology: Indirect fluorescence immunoassay (IFA) using HEp-2 cells. 1:320 Performed By: #### 2 132-9, 2276-4, 97730-3, 2284-8 #### [facility] CLIA [id number] [address] [place] [address] [place] BCR/ABL1 P190 NCN P210 % IS MR BLOODon 09-17-2024 BCR/ABL1 P190 NCN(%BCR/ABL1:ABL1) N/A Normal [facility] Comment on above: Order Comment: Fan meade Type: BLOOD SPECIMENOrdering Facility: [facility] Address: [address] [place] [address] Performed By: #### B CRPB1 ####[facility] LIMSCLIA [id number] [place] [address] [place]#### ISMRNCNPB ####[facility] [id number] [place] [address] [place] BCR/ABL1 P210 %IS N/A Normal [facility] Comment on above: Order Comment: Fan meade Type: BLOOD SPECIMENOrdering Facility: [facility] Address: [address] [place] [address] Performed By: #### B CRPB1 ####[facility] LIMSCLIA [id number] [place] [address] [place]#### ISMRNCNPB ####[facility] [id number] [place] [address] [place] BCR/ABL1 P210 MR N/A Normal [facility] Comment on above: Order Comment: Speci men Type: BLOOD SPECIMENOrdering Facility: [facility] Address: [address] [place] [address] Performed By: #### B CRPB1 ####[facility] LIMSCLIA [id number] [place] [address] [place]#### ISMRNCNPB ####[facility] [id number] [place] [address] [place] BCR/ABL1 P210 AND P190 DIAGN OSTIC PCR BLOODon 09-17-2024 BCR/ABL1 P210 AND P190 DIAGNOSTIC PCR BLOOD RESULT Normal [facility] Comment on above: Order Comment: Speci men Type: BLOOD SPECIMEN Ordering Facility: [facility] Address: [address] [place] [address] Result Comment: BCR/ ABL1 p210 and p190 Diagnostic PCR Laboratory Accession Number: [id number] Sample Type: Peripheral Blood Result: NOT DETECTED; [...] this sample, and cDNA prepared by reverse stitcher standard machine. Real time PCR was performed in two separate reactions, using primers for e13a2 and/or e14a2 BCR/ABL1 fusion transcripts and ABL1 transcripts for p210 detection and primers for e1a2 BCR/ABL1 fusion transcripts and ABL1 transcripts for p190 detection (QuantideX BCR/ABL IS assay, [employer], [place], [place]). This assay has a limit [...] developed and its performance characteristics determined by [facility]'s Pathology and Laboratory Medicine Department. It has not been cleared or approved by the FDA. [facility]'s Pathology and Laboratory Medicine Department is regulated under CLIA as certified to perform high-complexity testing. This test is used for clinical purposes. It should not be regarded as investigational or for research. Testing and interpretation performed at [facility], [address] [place] [address]. CLIA Number: [id number] As reviewed by José Miguel Persaud MD Performed By: #### B CRPB1 #### [facility] CLIA [id number] [address] [place] [address] [place] #### ISMRNCNPB #### [facility] CLIA [id number] [address] [place] [address] [place] CBC W Ordered Manual Differe ntial panel (Bld)on 09-17-2024 Basophils (Bld) [#/Vol] 0.03 10*3/uL [facility] Basophils/100 WBC (Bld) 0.3 % [facility] Differential cell count method Nom (Bld) Auto [facility] Eosinophils (Bld) [#/Vol] 0.07 10*3/uL [facility] Eosinophils/100 WBC (Bld) 0.7 % [facility] Erythrocyte distribution width (RBC) [Ratio] 14.2 % 11.5 - 15.0 % [facility] Hematocrit (Bld) [Volume fraction] 35.2 % Low 36.0 - 46.0 % [facility] Hemoglobin (Bld) [Mass/Vol] 11.4 g/dL Low 11.5 - 15.5 g/dL [facility] Immature granulocytes (Bld) [#/Vol] 0.06 10*3/uL [facility] Immature granulocytes/100 WBC (Bld) 0.6 % [facility] Interpretation and review of laboratory results Abnormal [facility] Lymphocytes (Bld) [#/Vol] 1.42 10*3/uL [facility] Lymphocytes/100 WBC (Bld) 15.1 % [facility] MCH (RBC) [Entitic mass] 28.6 pg 26.0 - 34.0 pg [facility] MCHC (RBC) [Mass/Vol] 32.4 g/dL 30.5 - 36.0 g/dL [facility] MCV (RBC) [Entitic vol] 88.2 fL 80.0 - 100.0 fL [facility] Monocytes (Bld) [#/Vol] 0.52 10*3/uL [facility] Monocytes/100 WBC (Bld) 5.5 % [facility] Neutrophils (Bld) [#/Vol] 7.33 10*3/uL [facility] Neutrophils/100 WBC (Bld) 77.8 % [facility] Nucleated RBC (Bld) [#/Vol] [facility] Nucleated RBC/100 WBC (Bld) [Ratio] 0.0 % /100 WBC [facility] Platelet mean volume (Bld) [Entitic vol] 9.8 fL 9.0 - 12.7 fL [facility] Platelets (Bld) [#/Vol] 409 10*3/uL High [facility] RBC (Bld) [#/Vol] 3.99 10*6/uL 3.90 - 5.2 0 m/uL [facility] WBC (Bld) [#/Vol] 9.43 10*3/uL [facility] This is an appended report. These results have been appended to a previously verified report. [facility] Basophils (Bld) [#/Vol] 0.03 10*3/uL Normal <0.11 [facility] Comment on above: Order Comment: Speci men Type: BLOOD SPECIMEN Ordering Facility: [facility] Address: [address] [place] [address] Performed By: #### B CRPB1 #### [facility] CLIA [id number] [address] [place] [address] [place] #### ISMRNCNPB #### [facility] CLIA [id number] [address] [place] [address] [place] Basophils/100 WBC (Bld) 0.3 % Normal [facility] Comment on above: Order Comment: Speci men Type: BLOOD SPECIMEN Ordering Facility: [facility] Address: [address] [place] [address] Performed By: #### B CRPB1 #### [facility] CLIA [id number] [address] [place] [address] [place] #### ISMRNCNPB #### [facility] CLIA [id number] [address] [place] [address] [place] Differential cell count method Nom (Bld) Auto Normal [facility] Comment on above: Order Comment: Speci men Type: BLOOD SPECIMEN Ordering Facility: [facility] Address: [address] [place] [address] Performed By: #### B CRPB1 #### [facility] CLIA [id number] [address] [place] [address] [place] #### ISMRNCNPB #### [facility] CLIA [id number] [address] [place] [address] [place] Eosinophils (Bld) [#/Vol] 0.07 10*3/uL Normal <0.46 [facility] Comment on above: Order Comment: Speci men Type: BLOOD SPECIMEN Ordering Facility: [facility] Address: [address] [place] [address] Performed By: #### B CRPB1 #### [facility] CLIA [id number] [address] [place] [address] [place] #### ISMRNCNPB #### [facility] [facility] CLIA [id number] [address] [place] [address] [place] Eosinophils/100 WBC (Bld) 0.7 % Normal [facility] Comment on above: Order Comment: Speci men Type: BLOOD SPECIMEN Ordering Facility: [facility] Address: [address] [place] [address] Performed By: #### B CRPB1 #### [facility] CLIA [id number] [address] [place] [address] [place] #### ISMRNCNPB #### [facility] CLIA [id number] [address] [place] [address] [place] Erythrocyte distribution width (RBC) [Ratio] 14.2 % Normal 11.5-15.0 [facility] Comment on above: Order Comment: Speci men Type: BLOOD SPECIMEN Ordering Facility: [facility] Address: [address] [place] [address] Performed By: #### B CRPB1 #### [facility] CLIA [id number] [address] [place] [address] [place] #### ISMRNCNPB #### [facility] CLIA [id number] [address] [place] [address] [place] Hematocrit (Bld) [Volume fraction] 35.2 % Low 36.0-46.0 [facility] Comment on above: Order Comment: Speci men Type: BLOOD SPECIMEN Ordering Facility: [facility] Address: [address] [place] [address] Performed By: #### B CRPB1 #### [facility] CLIA [id number] [address] [place] [address] [place] #### ISMRNCNPB #### [facility] CLIA [id number] [address] [place] [address] [place] Hemoglobin (Bld) [Mass/Vol] 11.4 g/dL Low 11.5-15.5 [facility] Comment on above: Order Comment: Speci men Type: BLOOD SPECIMEN Ordering Facility: [facility] Address: [address] [place] [address] Performed By: #### B CRPB1 #### [facility] CLIA [id number] [address] [place] [address] [place] #### ISMRNCNPB #### [facility] CLIA [id number] [address] [place] [address] [place] Immature granulocytes (Bld) [#/Vol] 0.06 10*3/uL Normal <0.10 [facility] Comment on above: Order Comment: Speci men Type: BLOOD SPECIMEN Ordering Facility: [facility] Address: [address] [place] [address] Performed By: #### B CRPB1 #### [facility] CLIA [id number] [address] [place] [address] [place] #### ISMRNCNPB #### [facility] CLIA [id number] [address] [place] [address] [place] Immature granulocytes/100 WBC (Bld) 0.6 % Normal [facility] Comment on above: Order Comment: Speci men Type: BLOOD SPECIMEN Ordering Facility: [facility] Address: [address] [place] [address] Performed By: #### B CRPB1 #### [facility] CLIA [id number] [address] [place] [address] [place] #### ISMRNCNPB #### [facility] CLIA [id number] [facility] [place] [address] [place] Lymphocytes (Bld) [#/Vol] 1.42 10*3/uL Normal 1.00-4.00 [facility] Comment on above: Order Comment: Speci men Type: BLOOD SPECIMEN Ordering Facility: [facility] Address: [address] [place] [address] Performed By: #### B CRPB1 #### [facility] CLIA [id number] [address] [place] [address] [place] #### ISMRNCNPB #### [facility] CLIA [id number] [address] [place] [address] [place] Lymphocytes/100 WBC (Bld) 15.1 % Normal [facility] Comment on above: Order Comment: Speci men Type: BLOOD SPECIMEN Ordering Facility: [facility] Address: [address] [place] [address] Performed By: #### B CRPB1 #### [facility] CLIA [id number] [address] [place] [address] [place] #### ISMRNCNPB #### [facility] CLIA [id number] [address] [place] [address] [place] MCH (RBC) [Entitic mass] 28.6 pg Normal 26.0-34.0 [facility] Comment on above: Order Comment: Speci men Type: BLOOD SPECIMEN Ordering Facility: [facility] Address: [address] [place] [address] Performed By: #### B CRPB1 #### [facility] CLIA [id number] [address] [place] [address] [place] #### ISMRNCNPB #### [facility] CLIA [id number] [address] [place] [address] [place] MCHC (RBC) [Mass/Vol] 32.4 g/dL Normal 30.5-36.0 [facility] Comment on above: Order Comment: Speci men Type: BLOOD SPECIMEN Ordering Facility: [facility] Address: [address] [place] [address] Performed By: #### B CRPB1 #### [facility] CLIA [id number] [address] [place] [address] [place] #### ISMRNCNPB #### [facility] CLIA [id number] [address] [place] [address] [place] MCV (RBC) [Entitic vol] 88.2 fL Normal 80.0-100.0 [facility] Comment on above: Order Comment: Speci men Type: BLOOD SPECIMEN Ordering Facility: [facility] Address: [address] [place] [address] Performed By: #### B CRPB1 #### [facility] CLIA [id number] [address] [place] [address] [place] #### ISMRNCNPB #### [facility] CLIA [id number] [address] [place] [address] [place] Monocytes (Bld) [#/Vol] 0.52 10*3/uL Normal <0.87 [facility] Comment on above: Order Comment: Speci men Type: BLOOD SPECIMEN Ordering Facility: [facility] Address: [address] [place] [address] Performed By: #### B CRPB1 #### [facility] CLIA [id number] [address] [place] [address] [place] #### ISMRNCNPB #### [facility] CLIA [id number] [address] [place] [address] [place] Monocytes/100 WBC (Bld) 5.5 % Normal [facility] Comment on above: Order Comment: Speci men Type: BLOOD SPECIMEN Ordering Facility: [facility] Address: [address] [place] [address] Performed By: #### B CRPB1 #### [facility] CLIA [id number] [address] [place] [address] [place] #### ISMRNCNPB #### [facility] CLIA [id number] [address] [place] [address] [place] Neutrophils (Bld) [#/Vol] 7.33 10*3/uL Normal 1.45-7.50 [facility] Comment on above: Order Comment: Speci men Type: BLOOD SPECIMEN Ordering Facility: [facility] Address: [address] [place] [address] Performed By: #### B CRPB1 #### [facility] CLIA [id number] [address] [place] [address] [place] #### ISMRNCNPB #### [facility] CLIA [id number] [address] [place] [address] [place] Neutrophils/100 WBC (Bld) 77.8 % Normal [facility] Comment on above: Order Comment: Speci men Type: BLOOD SPECIMEN Ordering Facility: [facility] Address: [address] [place] [address] Performed By: #### B CRPB1 #### [facility] CLIA [id number] [address] [place] [address] [place] #### ISMRNCNPB #### [facility] CLIA [id number] [address] [place] [address] [place] Nucleated RBC (Bld) [#/Vol] 10*3/uL Normal <0.01 [facility] Comment on above: Order Comment: Speci men Type: BLOOD SPECIMEN Ordering Facility: [facility] Address: [address] [place] [address] Performed By: #### B CRPB1 #### [facility] CLIA [id number] [facility] [place] [address] [place] #### ISMRNCNPB #### [facility] CLIA [id number] [address] [place] [address] [place] Nucleated RBC/100 WBC (Bld) [Ratio] 0.0 /100 WBC Normal [facility] Comment on above: Order Comment: Speci men Type: BLOOD SPECIMEN Ordering Facility: [facility] Address: [address] [place] [address] Performed By: #### B CRPB1 #### [facility] CLIA [id number] [address] [place] [address] [place] #### ISMRNCNPB #### [facility] CLIA [id number] [address] [place] [address] [place] Platelet mean volume (Bld) [Entitic vol] 9.8 fL Normal 9.0-12.7 [facility] Comment on above: Order Comment: Speci men Type: BLOOD SPECIMEN Ordering Facility: [facility] Address: [address] [place] [address] Performed By: #### B CRPB1 #### [facility] CLIA [id number] [address] [place] [address] [place] #### ISMRNCNPB #### [facility] CLIA [id number] [address] [place] [address] [place] Platelets (Bld) [#/Vol] 409 10*3/uL High 150-400 [facility] Comment on above: Order Comment: Speci men Type: BLOOD SPECIMEN Ordering Facility: [facility] Address: [address] [place] [address] Performed By: #### B CRPB1 #### [facility] CLIA [id number] [address] [place] [address] [place] #### ISMRNCNPB #### [facility] CLIA [id number] [address] [place] [address] [place] RBC (Bld) [#/Vol] 3.99 10*6/uL Normal 3.90-5.20 [facility] Comment on above: Order Comment: Speci men Type: BLOOD SPECIMEN Ordering Facility: [facility] Address: [address] [place] [address] Performed By: #### B CRPB1 #### [facility] CLIA [id number] [address] [place] [address] [place] #### ISMRNCNPB #### [facility] CLIA [id number] [address] [place] [address] [place] WBC (Bld) [#/Vol] 9.43 10*3/uL Normal 3.70-11.00 [facility] Comment on above: Order Comment: Speci men Type: BLOOD SPECIMEN Ordering Facility: [facility] Address: [address] [place] [address] Performed By: #### B CRPB1 #### [facility] CLIA [id number] [address] [place] [address] [place] #### ISMRNCNPB #### [facility] CLIA [id number] [address] [place] [address] [place] CNOVSPon 09-17-2024 CNOVSP Visit (SP) Office ([facility]) YUSUF MEDINA ([id number]) 1935 F [place] Date Time Provider Department [...] L REMV CATARACT EXTRACAP,INSERT LENS Bilateral 2020 [facility] FAMILY HISTORY Problem Relation Age of [...] as needed for sedation. blood sugar diagnostic (AppSame ULTRA TEST) test strip Test blood sugar once daily glipiZIDE (GLUCOTROL XL) 2.5 mg 24 hr tablet TAKE 1 TABLET BY MOUTH ONCE DAILY lisinopril-hydroCHLORO thiazide (ZESTORETIC) 20-25 mg per tablet Take 1 tablet by mouth once daily. pioglitazone (more content not included)... Normal [facility] COPPER BLOODon 09-17-2024 Copper [Mass/Vol] 128 ug/dL Normal 80-155 [facility] Comment on above: Order Comment: Fan meade Type: BLOOD SPECIMEN Ordering Facility: [facility] Address: [address] [place] [address] Result Comment: This test was developed, and its performance characteristics determined by the [facility] Department of Pathology and Laboratory Medicine. It has not been cleared or approved by the FDA. The [facility] Department of Pathology and Laboratory Medicine is regulated under CLIA as qualified to perform high-complexity testing. This test is used for clinical purposes. It should not be regarded as investigational or for research. Performed By: #### 2 132-9, 2276-4, 06728-3, 228-8 #### [facility] CLIA [id number] [address] [place] [address] [place] Centromere Ab IF Ql (S)on Centromere Ab Qn (S) <0.2 Normal <1.0 [facility] Comment on above: Order Comment: Fan meade Type: BLOOD SPECIMEN Ordering Facility: [facility] Address: [address] [place] [address] Result Comment: Anti -centromere antibody is used as in aid in diagnosis of systemic sclerosis. Clinical correlation is required. Test Methodology: Multiplex flow immunoassay. Performed By: #### 2 132-9, 2276-4, 72271-7, 228-8 #### [facility] CLIA [id number] [address] [place] [address] [place] CENTROMERE AB QUAL Negative Normal Negative [facility] Comment on above: Order Comment: Fan meade Type: BLOOD SPECIMEN Ordering Facility: [facility] Address: [address] [place] [address] Performed By: #### 2 132-9, 2276-4, 40574-4, 2284-8 #### [facility] CLIA [id number] [address] [place] [address] [place] Chromatin Ab Qnon 09-17-2024 CHROMATIN AB QUAL Negative Normal Negative [facility] Comment on above: Order Comment: Speci men Type: BLOOD SPECIMEN Ordering Facility: [facility] Address: [address] [place] [address] Performed By: #### 5 7021-8 #### [facility] CLIA [id number] [facility] [place] [address] [place] Chromatin Ab SerPl-aCncon Chromatin Ab Qn <0.2 Normal <1.0 [facility] Comment on above: Order Comment: Speci men Type: BLOOD SPECIMEN Ordering Facility: [facility] Address: [address] [place] [address] Result Comment: Test Methodology: Multiplex flow immunoassay. Performed By: #### 5 7021-8 #### [facility] CLIA [id number] [address] [place] [address] [place] Cyclic citrullinated peptide IgG Qnon 09-17-2024 CCP ANTIBODY IGG QUALITATIVE Negative Normal Negative [facility] Comment on above: Order Comment: Speci men Type: BLOOD SPECIMEN Ordering Facility: [facility] Address: [address] [place] [address] Performed By: #### 2 132-9, 2276-4, 50534-2, 2284-8 #### [facility] CLIA [id number] [address] [place] [address] [place] DNA double strand Ab IA Qn ( S)on 09-17-2024 DNA ANTIBODY 175 IU/mL Normal <=200 [facility] Comment on above: Order Comment: Speci men Type: BLOOD SPECIMEN Ordering Facility: [facility] Address: [address], [place] [address] Result Comment: Nega tive: <200 IU/mL Equivocal: 201-300 IU/mL Moderate Positive: 301-800 IU/mL Strong Positive: >801 IU/mL Performed By: #### 2 132-9, 6-4, 94091-8, 2284-06 #### [facility] CLIA [id number] [address] [place] [address] [place] DNA ANTIBODY QUALITATIVE INTERPRETATION Negative Normal Negative [facility] Comment on above: Order Comment: Speci men Type: BLOOD SPECIMEN Ordering Facility: [facility] Address: [address] [place] [address] Performed By: #### 2 132-9, 2275-4, 53638-9, 2284-06 #### [facility] CLIA [id number] [address] [place] [address] [place] EUFEMIA Jo1 Ab Ser-aCncon 2023 Nadege-1 extractable nuclear Ab Qn (S) <0.2 Normal <1.0 [facility] Comment on above: Order Comment: Speci men Type: BLOOD SPECIMEN Ordering Facility: [facility] Address: [address] [place] [address] Performed By: #### 2 132-9, 2275-4, 88074-3, 2284-06 #### [facility] CLIA [id number] [address] [place] [address] [place] EUFEMIA ENVIRONMENTAL SCIENCE PROFESSOR Ab Ser-aCncon 2023 Ribonucleoprotein extractable nuclear Ab Qn (S) <0.2 Normal <1.0 [facility] Comment on above: Order Comment: Speci men Type: BLOOD SPECIMEN Ordering Facility: [facility] Address: [address] [place] [address] Performed By: #### 2 132-9, 2275-4, 16048-8, 2284-06 #### [facility] CLIA [id number] [address] [place] [address] [place] Ribonucleoprotein extractable nuclear Ab Qn (S) 2.3 AI High <1.0 [facility] Comment on above: Order Comment: Speci men Type: BLOOD SPECIMEN Ordering Facility: [facility] Address: [address] [place] [address] Performed By: #### 2 132-9, 2276-4, 75244-7, 8 #### [facility] CLIA [id number] [address] [place] [address] [place] EUFEMIA SM IgG Ser-aCncon 2023 Bang extractable nuclear IgG Qn (S) <0.2 Normal <1.0 [facility] Comment on above: Order Comment: Speci men Type: BLOOD SPECIMEN Ordering Facility: [facility] Address: [address] [place] [address] Performed By: #### 2 132-9, 6-4, 20186-9, 8 #### [facility] CLIA [id number] [address] [place] [address] [place] EUFEMIA SS-A Ab Ser-aCncon 09-17 Sjogrens syndrome-A extractable nuclear Ab Qn (S) <0.2 Normal <1.0 [facility] Comment on above: Order Comment: Speci men Type: BLOOD SPECIMEN Ordering Facility: [facility] Address: [address] [place] [address] Result Comment: Test Methodology: Multiplex flow immunoassay. Performed By: #### 2 132-9, 6-4, 84952-9, 8 #### [facility] CLIA [id number] [address] [place] [address] [place] EUFEMIA SS-B Ab Ser-aCncon 09-17 Sjogrens syndrome-B extractable nuclear Ab Qn (S) <0.2 Normal <1.0 [facility] Comment on above: Order Comment: Speci men Type: BLOOD SPECIMEN Ordering Facility: [facility] Address: [address], [place] [address] Result Comment: Anti -SSB (anti-La) antibody is used as an aid in diagnosis of a variety of systemic autoimmune diseases, especially for Sjogren's syndrome and systemic lupus erythematosus. Clinical correlation is required. Test Methodology: Multiplex flow immunoassay. Performed By: #### 2 132-9, 2276-4, 08215-7, 8 #### [facility] CLIA [id number] [address] [place] [address] [place] Ferritin SerPl-mCncon 2023 Ferritin [Mass/Vol] 59.9 ng/mL Normal 14.7-205.1 [facility] Comment on above: Order Comment: Speci men Type: BLOOD SPECIMENOrdering Facility: [facility] Address: [address] [place] [address] Performed By: #### 5 0190-8, 3084-1, 2275-4 ####[facility] [id number] [place] [address] [place] Folate SerPl-mCncon 09-17-20 Folate [Mass/Vol] 18.8 ng/mL Normal >4.7 [facility] Comment on above: Order Comment: Fan meade Type: BLOOD SPECIMEN Ordering Facility: [facility] Address: [address] [place] [address] Performed By: #### 2 132-9, 2283-8 #### [facility] CLIA [id number] [address] [place] [address] [place] Hcys SerPl-sCncon 09-17-2024 Homocysteine [Moles/Vol] 21.2 umol/L High <15.1 [facility] Comment on above: Order Comment: Speci men Type: BLOOD SPECIMEN Ordering Facility: [facility] Address: [address] [place] [address] Performed By: #### 2 132-9, 6-4, 36882-8, 8 #### [facility] CLIA [id number] [id number] [place] IMMUNOFIXATION SCREEN, SERUM on 09-17-2024 [...] monoclonal gammopathy. Clinical correlation is necessary. Normal [facility] Comment on above: Order Comment: Fan meade Type: BLOOD SPECIMEN Ordering Facility: [facility] Address: [address] [place] [address] Performed By: #### 5 7021-8 #### [facility] CLIA [id number] [address] [place] [address] MPA RESULT A poorly defined region of restricted mobility is present that may represent an M protein. Abnormal No M protein is identified. [facility] Comment on above: Order Comment: Fan meade Type: BLOOD SPECIMEN Ordering Facility: [facility] Address: [address] [place] [address] Performed By: #### 5 7021-8 #### [facility] CLIA [id number] [address] [place] [address] STAFF REVIEW (MPA) Reviewed by Brianne Mosley M.D., Ph.D Normal [facility] Comment on above: Order Comment: Fan meade Type: BLOOD SPECIMEN Ordering Facility: [facility] Address: [address] [place] [address] Performed By: #### 5 7021-8 #### [facility] CLIA [id number] [address] [place] [address] [place] IMMUNOGLOBULINS,IGG,IGA,IGMo n 09-17-2024 IgA [Mass/Vol] 142 mg/dL Normal 70-400 [facility] Comment on above: Order Comment: Fan meade Type: BLOOD SPECIMEN Ordering Facility: [facility] Address: [address] [place] [address] Performed By: #### 2 132-9, 2276-4, 24996-7, 2283-8 #### [facility] CLIA [id number] [address] [place] [address] [place] IgG [Mass/Vol] 750 mg/dL Normal 700-1600 [facility] Comment on above: Order Comment: Speci men Type: BLOOD SPECIMEN Ordering Facility: [facility] Address: [address] [place] [address] Performed By: #### 2 132-9, 6-4, 46897-0, 2283-8 #### [facility] CLIA [id number] [address] [place] [address] [place] IgM [Mass/Vol] 23 mg/dL Low 40-230 [facility] Comment on above: Order Comment: Speci men Type: BLOOD SPECIMEN Ordering Facility: [facility] Address: [address] [place] [address] Performed By: #### 2 132-9, 6-4, 24252-9, 2283-8 #### [facility] CLIA [id number] [address] [place] [address] [place] Iron and Iron binding capaci ty panelon 09-17-2024 Iron [Mass/Vol] 29 ug/dL Low 41-186 [facility] Comment on above: Order Comment: Speci men Type: BLOOD SPECIMENOrdering Facility: [facility] Address: [address] [place] [address] Performed By: #### 5 0190-8, 3084-1, 2275-4 ####[facility] [id number] [place] [address] [place] Iron binding capacity [Mass/Vol] 407 ug/dL High 232-386 [facility] Comment on above: Order Comment: Speci men Type: BLOOD SPECIMENOrdering Facility: [facility] Address: [address] [place] [address] Performed By: #### 5 0190-8, 3084-1, 2275-4 ####[facility] [id number] [place] [address] [place] Iron/TIBC [Molar ratio] 7.1 % Low 15.0-57.0 [facility] Comment on above: Order Comment: Fan meade Type: BLOOD SPECIMENOrdering Facility: [facility] Address: [address] [place] [address] Performed By: #### 5 0190-8, 3084-1, 2275-4 ####[facility] [id number] [place] [address] [place] Nadege-1 extractable nuclear Ab Qn (S)on 09-17-2024 NADEGE 1 ANTIBODY QUAL Negative Normal Negative [facility] Comment on above: Order Comment: Fan meade Type: BLOOD SPECIMEN Ordering Facility: [facility] Address: [address] [place] [address] Result Comment: Anti -NADEGE-1 antibody is used as an aid in diagnosis of polymyositis and dermatomyositis especially with pulmonary involvement. A negative result cannot rule out polymyositis or dermatomyositis. Clinical correlation is required. Test Methodology: Multiplex flow immunoassay. Performed By: #### 2 132-9, 2276-4, 31456-3, 2284-8 #### [facility] CLIA [id number] [address] [place] [address] [place] KAPPA/BOWEN,FREE,SERon 2023 Immunoglobulin light chains.kappa.free (S) [Mass/Vol] 45.2 mg/L High 3.3-19.4 [facility] Comment on above: Order Comment: Fan meade Type: BLOOD SPECIMEN Ordering Facility: [facility] Address: [address] [place] [address] Result Comment: Rare ly, increased serum free light chains levels may not be detected or accurately quantified due to prozone phenomenon or in high viscosity samples using this immunoturbidimetric assay. Correlation with other laboratory results and clinical findings is recommended. The [place] Free Light Chain was performed using the Binding Site Optilite immunoturbidimetric method. Result obtained with different assay methods or kits cannot be used interchangeably. Performed By: #### B CRPB1 #### [facility] CLIA [id number] [address] [place] [address] [place] #### ISMRNCNPB #### [facility] CLIA [id number] [address] [place] [address] [place] Immunoglobulin light chains.kappa/Immunoglob ulin light chains.lambda (S) [Mass ratio] 1.57 Normal 0.26-1.65 [facility] Comment on above: Order Comment: Speci men Type: BLOOD SPECIMEN Ordering Facility: [facility] Address: [address] [place] [address] Performed By: #### B CRPB1 #### [facility] CLIA [id number] [address] [place] [address] #### ISMRNCNPB #### [facility] CLIA [id number] [address] [place] [address] [place] Immunoglobulin light chains.lambda.free [Mass/Vol] 28.8 mg/L High 5.7-26.3 [facility] Comment on above: Order Comment: Speci men Type: BLOOD SPECIMEN Ordering Facility: [facility] Address: [address] [place] [address] Result Comment: Rare ly, increased serum free [...] B CRPB1 #### [facility] CLIA [id number] [address] [place] [address] [place] #### ISMRNCNPB #### [facility] CLIA [id number] [address] [place] [address] [place] Methylmalonate SerPl-sCncon 09-17-2024 Methylmalonate [Moles/Vol] 0.29 umol/L Normal <=0.40 [facility] Comment on above: Order Comment: Fan meade Type: BLOOD SPECIMEN Ordering Facility: [facility] Address: [address] [place] [address] Result Comment: This test was developed, and its performance characteristics determined by the [facility] Department of Pathology and Laboratory Medicine. It has not been cleared or approved by the FDA. The [facility] Department of Pathology and Laboratory Medicine is regulated under CLIA as qualified to perform high-complexity testing. This test is used for clinical purposes. It should not be regarded as investigational or for research. Performed By: #### 2 132-9, 2276-4, 39851-4, 2284-8 #### [facility] CLIA [id number] [address] [place] [address] [place] Nuclear Ab IA Ql (S)on 09-17 RUBEN SCR QUAL Positive Abnormal Negative [facility] Comment on above: Order Comment: Fan meade Type: BLOOD SPECIMEN Ordering Facility: [facility] Address: [address] [place] [address] Result Comment: The qualitative antinuclear antibody screen test performed using the following antigens: dsDNA, Chromatin, Ribosomal P, SS-A 60, SS-A 52, SS-B, Sm, SmRNP, ENVIRONMENTAL SCIENCE PROFESSOR A, ENVIRONMENTAL SCIENCE PROFESSOR 68, Scl-70, Nadege-1, and Centromere B. Methodology: Multiplex flow immunoassay. Performed By: #### 5 7021-8 #### [facility] CLIA [id number] [address] [place] [address] [place] PATHOLOGIST INTERPRETATION C BC/DIFFon 09-17-2024 Architectural Design Professor review Mckay (Unsp spec) [Interp] Reviewed by Dominga Johnson MD Normal [facility] Comment on above: Order Comment: Fan meade Type: BLOOD SPECIMEN Ordering Facility: [facility] Address: [address] [place] [address] Performed By: #### B CRPB1 #### [facility] CLIA [id number] [address] [place] [address] [place] #### ISMRNCNPB #### [facility] CLIA [id number] [address] [place] [address] [place] STAFF REVIEW, CBCDIF Normal [facility] Comment on above: Order Comment: Speci men Type: BLOOD SPECIMEN Ordering Facility: [facility] Address: [address] [place] [address] Result Comment: Norm ocytic anemia without polychromasia Thrombocytosis Performed By: #### B CRPB1 #### [facility] CLIA [id number] [address] [place] [address] [place] #### ISMRNCNPB #### [facility] CLIA [id number] [address] [place] [address] [place] RBC MORPHOLOGYon 09-17-2024 Platelets Estimate (Bld) [#/Vol] Increased Normal [facility] Comment on above: Order Comment: Speci men Type: BLOOD SPECIMEN Ordering Facility: [facility] Address: [address] [place] [address] Performed By: #### B CRPB1 #### [facility] CLIA [id number] [address] [place] [address] [place] #### ISMRNCNPB #### [facility] CLIA [id number] [address] [place] [address] [place] RBC morphology finding Nom (Bld) Reviewed: unremarkable Normal [facility] Comment on above: Order Comment: Speci men Type: BLOOD SPECIMEN Ordering Facility: [facility] Address: [address] [place] [address] Performed By: #### B CRPB1 #### [facility] CLIA [id number] [address] [place] [address] [place] #### ISMRNCNPB #### [facility] IA [id number] [address] [place] [address] [place] RETICULOCYTE COUNTon 024 Reticulocytes (Bld) [#/Vol] 0.078 10*3/uL [facility] Retics #on 09-17-2024 Reticulocytes (Bld) [#/Vol] 0.42576 10*3/uL Normal 0.018-0.100 [facility] Comment on above: Order Comment: Speci men Type: BLOOD SPECIMEN Ordering Facility: [facility] Address: [address] [place] [address] Performed By: #### B CRPB1 #### [facility] IA [id number] [address] [place] [address] [place] #### ISMRNCNPB #### [facility] IA [id number] [address] [place] [address] [place] Reticulocytes (Bld) [#/Vol]o n 09-17-2024 Interpretation and review of laboratory results Normal [facility] Reticulocytes/100 RBC (Bld) 2.0 % 0.4 - 2.0 % [facility] Reticulocytes/100 RBC (Bld) 2.0 % Normal 0.4-2.0 [facility] Comment on above: Order Comment: Speci men Type: BLOOD SPECIMEN Ordering Facility: [facility] Address: [address] [place] [address] Performed By: #### B CRPB1 #### [facility] CLIA [id number] [address] [place] [address] [place] #### ISMRNCNPB #### [facility] IA [id number] [address] [place] [address] [place] Ribonucleoprotein extractabl e nuclear Ab Qn (S)on 09-17-2024 ANTI-ENVIRONMENTAL SCIENCE PROFESSOR QUAL Positive Abnormal Negative [facility] Comment on above: Order Comment: Fan meade Type: BLOOD SPECIMEN Ordering Facility: [facility] Address: [address] [place] [address] Performed By: #### 2 132-9, 6-4, 93575-7, 8 #### [facility] CLIA [id number] [address] [place] [address] [place] RIBOSOMAL ENVIRONMENTAL SCIENCE PROFESSOR QUAL Negative Normal Negative [facility] Comment on above: Order Comment: Fan meade Type: BLOOD SPECIMEN Ordering Facility: [facility] Address: [address] [place] [address] Result Comment: Anti -Ribosomal RNA (Ribosomal P) antibody is used as an aid in diagnosis of systemic autoimmune diseases especially systemic lupus erythematosus and mixed connective tissue disease. Cross-reactivity with Anti-bang antibody is not uncommon. Clinical correlation is required. Test Methodology: Multiplex flow immunoassay. Performed By: #### 2 132-9, 6-4, 09416-0, 2284-06 #### [facility] CLIA [id number] [address] [place] [address] [place] SCL-70 extractable nuclear I gG IA Qn (S)on 09-17-2024 SCLERODERMA AB QUAL Negative Normal Negative [facility] Comment on above: Order Comment: Fan meade Type: BLOOD SPECIMEN Ordering Facility: [facility] Address: [address] [place] [address] Performed By: #### 2 132-9, 6-4, 35402-0, 2284-06 #### [facility] CLIA [id number] [address] [place] [address] [place] SCLERODERMA IGG AB <0.2 Normal <1.0 [facility] Comment on above: Order Comment: Fan meade Type: BLOOD SPECIMEN Ordering Facility: [facility] Address: [address] [place] [address] Result Comment: Scl- 70/Scleroderma antibody test is used as an aid in diagnosis of systemic sclerosis especially the diffuse cutaneous form. A negative result cannot rule out systemic sclerosis. The final interpretation should consider clinical picture and other test results such as anti-centromere antibody. Test Methodology: Multiplex flow immunoassay. Performed By: #### 2 132-9, 2276-4, 82839-4, 8 #### [facility] CLIA [id number] [address] [place] [address] [place] Sjogrens syndrome-A extracta ble nuclear Ab Qn (S)on 09-17-2024 SSA ANTIBODY QUAL Negative Normal Negative [facility] Comment on above: Order Comment: Speci men Type: BLOOD SPECIMEN Ordering Facility: [facility] Address: [address] [place] [address] Performed By: #### 2 132-9, 6-4, 54866-8, 8 #### [facility] CLIA [id number] [address] [place] [address] [place] Sjogrens syndrome-B extracta ble nuclear Ab Qn (S)on 09-17-2024 SSB ANTIBODY QUAL Negative Normal Negative [facility] Comment on above: Order Comment: Fan meade Type: BLOOD SPECIMEN Ordering Facility: [facility] Address: [address] [place] [address] Performed By: #### 2 132-9, 6-4, 82874-9, 8 #### [facility] CLIA [id number] [address] [place] [address] [place] Bang extractable nuclear Ig G Qn (S)on 09-17-2024 SM ANTIBODY QUAL Negative Normal Negative [facility] Comment on above: Order Comment: Speci men Type: BLOOD SPECIMEN Ordering Facility: [facility] Address: [address] [place] [address] Result Comment: Anti -Sm (Bang) antibody is used as an aid in diagnosis of systemic lupus erythematosus and its presence is associated with renal disease. A negative result cannot rule out systemic lupus erythematosus. Clinical correlation is required. Test Methodology: Multiplex flow immunoassay. Performed By: #### 2 132-9, 2276-4, 49005-7, 2284-8 #### [facility] CLIA [id number] [address] [place] [address] [place] Urate [facility] 4 Urate [Mass/Vol] 5.6 mg/dL Normal 2.5-6.6 [facility] Comment on above: Order Comment: Speci men Type: BLOOD SPECIMENOrdering Facility: [facility] Address: [address] [place] [address] Performed By: #### 5 0190-8, 3084-1, 2276-4 ####[facility] [id number] [address] [place] Vit B12 [facility] 024 Cobalamin (Vitamin B12) [Mass/Vol] 433 pg/mL Normal 232-1245 [facility] Comment on above: Order Comment: Speci men Type: BLOOD SPECIMEN Ordering Facility: [facility] Address: [address] [place] [address] Performed By: #### 2 132-9, 228-8 #### [facility] CLIA [id number] [address] [place] [address] [place] XR ANKLE 3V AP/LAT/OBL [...] Degenerative changes, calcaneal enthesophytes, and pes planus. [place] [facility] Director: PSCB Transcribe Date/Time: Sep 18 2024 12:20P Dictated by : GERTRUDIS MONCADA MD This examination was interpreted and the report reviewed and electronically signed by: GERTRUDIS MONCADA MD on Sep 18 2024 12:22PM EST [id number] Normal [facility] XR Ankle - right AP and Late ral and obliqueon 09-17-2024 Radiology Study observation (narrative) [facility] Zinc SerPl-mCncon 09-17-2024 Zinc [Mass/Vol] 55 ug/dL Low 60-120 [facility] Comment on above: Order Comment: Fan meade Type: BLOOD SPECIMEN Ordering Facility: [facility] Address: [address] [place] [address] Result Comment: This test was developed, and its performance characteristics determined by the [facility] Department of Pathology and Laboratory Medicine. It has not been cleared or approved by the FDA. The [facility] Department of Pathology and Laboratory Medicine is regulated under CLIA as qualified to perform high-complexity testing. This test is used for clinical purposes. It should not be regarded as investigational or for research. Performed By: #### 2 132-9, 2276-4, 80779-1, 228-8 #### [facility] CLIA [id number] [address] [place] [address] [place] cCP IgG SerPl-aCncon 024 Cyclic citrullinated peptide IgG Qn <15 Normal <20 [facility] Comment on above: Order Comment: Fan meade Type: BLOOD SPECIMEN Ordering Facility: [facility] Address: [address] [place] [address] Performed By: #### 2 132-9, 2276-4, 10324-8, 228-8 #### [facility] CLIA [id number] [address] [place] [address] [place] CNOVon 09-13-2024 CNOV Office Visit ([facility] ) YUSUF MEDINA ([id number]) 1935 F [place] Date Time Provider Department [...] changes, you (more content not included)... Normal [facility]i [facility] YUSUF MEDINA ([id number]) 1935 [facility] Date Time Provider Department 08/21/24 MIGDALIA CRAMER [...] this patient by: CAREGIVER José Miguel Swanson [facility] Problem List As Of Date 08/21/2024 Noted [...] 12/07/2017 Cervic (more content not included)... Normal [facility] ALBUMIN/CREATININE RATIO, UR INEon 08-14-2024 Albumin DL <= 20 mg/L (U) [Mass/Vol] 387.7 mg/L Normal [facility] Comment on above: Order Comment: Fan meade Type: BLOOD SPECIMEN Ordering Facility: [facility] Address: [address] [place] [address] Performed By: #### B CRPB1 #### [facility] CLIA [id number] [address] [place] [address] [place] #### ISMRNCNPB #### [facility] CLIA [id number] [address] [place] [address] [place] Albumin/Creatinine (U) [Mass ratio] 483 mg/g High <30 [facility] Comment on above: Order Comment: Fan meade Type: BLOOD SPECIMEN Ordering Facility: [facility] Address: [address] [place] [address] Result Comment: Adul t Male and Female [...] B CRPB1 #### [facility] CLIA [id number] [address] [place] [address] [place] #### ISMRNCNPB #### [facility] CLIA [id number] [address] [place] [address] [place] Creatinine (U) [Mass/Vol] 80.2 mg/dL Normal 20.0-300.0 [facility] Comment on above: Order Comment: Speci men Type: BLOOD SPECIMEN Ordering Facility: [facility] Address: [address] [place] [address] Performed By: #### B CRPB1 #### [facility] CLIA [id number] [address] [place] [address] [place] #### ISMRNCNPB #### [facility] CLIA [id number] [address] [place] [address] [place] Bacteria Ur Culton [...] technique or straight catheterization for???urine???collecti on. Normal [facility] Comment on above: Performed By: #### 6 30-4 ####[facility] [id number] [place] [address] [address] [place] Basic metabolic 2000 panelon 08-14-2024 Anion gap [Moles/Vol] 13 mmol/L Normal 8-15 [facility] Comment on above: Order Comment: Speci men Type: BLOOD SPECIMEN Ordering Facility: [facility] Address: [address] [place] [address] Performed By: #### 5 7021-8 #### [facility] CLIA [id number] [address] [place] [address] [place] Calcium [Mass/Vol] 9.9 mg/dL Normal 8.5-10.2 [facility] Comment on above: Order Comment: Speci men Type: BLOOD SPECIMEN Ordering Facility: [facility] Address: [address] [place] [address] Performed By: #### 5 7021-8 #### [facility] CLIA [id number] [address] [place] [address] [place] Chloride [Moles/Vol] 96 mmol/L Low 98-107 [facility] Comment on above: Order Comment: Speci men Type: BLOOD SPECIMEN Ordering Facility: [facility] Address: [address] [place] [address] Performed By: #### 5 7021-8 #### [facility] CLIA [id number] [address] [place] [address] [place] CO2 [Moles/Vol] 24 mmol/L Normal 22-30 [facility] Comment on above: Order Comment: Speci men Type: BLOOD SPECIMEN Ordering Facility: [facility] Address: [address] [place] [address] Performed By: #### 5 7021-8 #### [facility] CLIA [id number] [address] [place] [address] [place] Creatinine [Mass/Vol] 0.89 mg/dL Normal 0.58-0.96 [facility] Comment on above: Order Comment: Speci men Type: BLOOD SPECIMEN Ordering Facility: [facility] Address: [address] [place] [address] Performed By: #### 5 7021-8 #### [facility] CLIA [id number] [address] [place] [address] [place] Creatinine and Glomerular filtration rate.predicted panel (S/P/Bld) 62 mL/min/1.73m??? Normal >=60 [facility] Comment on above: Order Comment: Fan meade Type: BLOOD SPECIMEN Ordering Facility: [facility] Address: [address] [place] [address] Result Comment: Hilda mated Glomerular Filtration Rate [...] GFR. Performed By: #### 5 7021-8 #### [facility] CLIA [id number] [address] [place] [address] [place] Glucose [Mass/Vol] 245 mg/dL High 74-99 [facility] Comment on above: Order Comment: Fan meade Type: BLOOD SPECIMEN Ordering Facility: [facility] Address: [address] [place] [address] Result Comment: The [place] Diabetes [employer] (ADA) provides guidance for cutoff [...] Standards of Medical Care in Diabetes 2016, [place] [employer]. Diabetes Care. 2016.39(Suppl 1). Performed By: #### 5 7021-8 #### [facility] CLIA [id number] [address] [place] [address] [place] Potassium [Moles/Vol] 4.9 mmol/L Normal 3.7-5.1 [facility] Comment on above: Order Comment: Speci men Type: BLOOD SPECIMEN Ordering Facility: [facility] Address: [address] [place] [address] Performed By: #### 5 7021-8 #### [facility] CLIA [id number] [address] [place] [address] [place] Sodium [Moles/Vol] 133 mmol/L Low 136-144 [facility] Comment on above: Order Comment: Speci men Type: BLOOD SPECIMEN Ordering Facility: [facility] Address: [address] [place] [address] Performed By: #### 5 7021-8 #### [facility] CLIA [id number] [address] [place] [address] [place] Urea nitrogen [Mass/Vol] 29 mg/dL High 7-21 [facility] Comment on above: Order Comment: Speci men Type: BLOOD SPECIMEN Ordering Facility: [facility] Address: [address] [place] [address] Performed By: #### 5 7021-8 #### [facility] CLIA [id number] [address] [place] [address] [place] CBC W Ordered Manual Differe ntial panel (Bld)on 08-14-2024 Basophils (Bld) [#/Vol] 0.05 10*3/uL Normal <0.11 [facility] Comment on above: Order Comment: Speci men Type: BLOOD SPECIMENOrdering Facility: [facility] Address: [address] [place] [address] Performed By: #### 5 7782-5, RADHA 4537-7 ####[facility] [id number] [facility] [id number] [place] [address] [place] Basophils/100 WBC (Bld) 0.4 % Normal [facility] Comment on above: Order Comment: Speci men Type: BLOOD SPECIMENOrdering Facility: [facility] Address: [address] [place] [address] Performed By: #### 5 7782-5, RADHA, 4537-05 ####[facility] [id number] [place] [address] [place] Differential cell count method Nom (Bld) Auto Normal [facility] Comment on above: Order Comment: Speci men Type: BLOOD SPECIMENOrdering Facility: [facility] Address: [address] [place] [address] Performed By: #### 5 7782-5, RADHA, 4537-05 ####[facility] [id number] [place] [address] [place] Eosinophils (Bld) [#/Vol] 0.04 10*3/uL Normal <0.46 [facility] Comment on above: Order Comment: Speci men Type: BLOOD SPECIMENOrdering Facility: [facility] Address: [address] [place] [address] Performed By: #### 5 7782-5, RADHA, 4537-05 ####[facility] [id number] [place] [address] [place] Eosinophils/100 WBC (Bld) 0.3 % Normal [facility] Comment on above: Order Comment: Speci men Type: BLOOD SPECIMENOrdering Facility: [facility] Address: [address] [place] [address] Performed By: #### 5 7782-5, RADHA, 4537-05 ####[facility] [id number] [place] [address] [place] Erythrocyte distribution width (RBC) [Ratio] 14.9 % Normal 11.5-15.0 [facility] Comment on above: Order Comment: Speci men Type: BLOOD SPECIMENOrdering Facility: [facility] Address: [address] [place] [address] Performed By: #### 5 7782-5, STFRZAID, 4537-05 ####[facility] [id number] [place] [address] [place] Hematocrit (Bld) [Volume fraction] 35.2 % Low 36.0-46.0 [facility] Comment on above: Order Comment: Speci men Type: BLOOD SPECIMENOrdering Facility: [facility] Address: [address] [place] [address] Performed By: #### 5 7782-5, STFRZAID, 4537-05 ####[facility] [id number] [place] [address] [place] Hemoglobin (Bld) [Mass/Vol] 11.2 g/dL Low 11.5-15.5 [facility] Comment on above: Order Comment: Speci men Type: BLOOD SPECIMENOrdering Facility: [facility] Address: [address] [place] [address] Performed By: #### 5 7782-5, STFRZAID, 4537-05 ####[facility] LABIA [id number] [place] [address] [place] Immature granulocytes (Bld) [#/Vol] 0.06 10*3/uL Normal <0.10 [facility] Comment on above: Order Comment: Speci men Type: BLOOD SPECIMENOrdering Facility: [facility] Address: [address] [place] [address] Performed By: #### 5 7782-5, STFRZAID, 4537-05 ####[facility] LABIA [id number] [place] [address] [place] Immature granulocytes/100 WBC (Bld) 0.5 % Normal [facility] Comment on above: Order Comment: Speci men Type: BLOOD SPECIMENOrdering Facility: [facility] Address: [address] [place] [address] Performed By: #### 5 7782-5, RADHA 4537-05 ####[facility] LABIA [id number] [place] [address] [place] Lymphocytes (Bld) [#/Vol] 1.40 10*3/uL Normal 1.00-4.00 [facility] Comment on above: Order Comment: Speci men Type: BLOOD SPECIMENOrdering Facility: [facility] Address: [address] [place] [address] Performed By: #### 5 7782-5, RADHA 4537-05 ####[facility] LABIA [id number] [place] [address] [place] Lymphocytes/100 WBC (Bld) 11.3 % Normal [facility] Comment on above: Order Comment: Speci men Type: BLOOD SPECIMENOrdering Facility: [facility] Address: [address] [place] [address] Performed By: #### 5 7782-5, RADHA 4537-05 ####[facility] [id number] [place] [address] [place] MCH (RBC) [Entitic mass] 28.4 pg Normal 26.0-34.0 [facility] Comment on above: Order Comment: Speci men Type: BLOOD SPECIMENOrdering Facility: [facility] Address: [address] [place] [address] Performed By: #### 5 7782-5, RADHA 4537-05 ####[facility] LABIA [id number] [place] [address] [place] MCHC (RBC) [Mass/Vol] 31.8 g/dL Normal 30.5-36.0 [facility] Comment on above: Order Comment: Speci men Type: BLOOD SPECIMENOrdering Facility: [facility] Address: [address] [place] [address] Performed By: #### 5 7782-5, RADHA 4537-05 ####[facility] LABCLIA [id number] [place] [address] [place] MCV (RBC) [Entitic vol] 89.3 fL Normal 80.0-100.0 [facility] Comment on above: Order Comment: Speci men Type: BLOOD SPECIMENOrdering Facility: [facility] Address: [address] [place] [address] Performed By: #### 5 7782-5, RADHA 4537-05 ####[facility] LABCLIA [id number] [place] [address] [place] Monocytes (Bld) [#/Vol] 0.83 10*3/uL Normal <0.87 [facility] Comment on above: Order Comment: Speci men Type: BLOOD SPECIMENOrdering Facility: [facility] Address: [address] [place] [address] Performed By: #### 5 7782-5, RADHA 4537-05 ####[facility] LABCLIA [id number] [place] [address] [place] Monocytes/100 WBC (Bld) 6.7 % Normal [facility] Comment on above: Order Comment: Speci men Type: BLOOD SPECIMENOrdering Facility: [facility] Address: [address] [place] [address] Performed By: #### 5 7782-5, RADHA 4537-05 ####[facility] LABCLIA [id number] [place] [address] [place] Neutrophils (Bld) [#/Vol] 10.03 10*3/uL High 1.45-7.50 [facility] Comment on above: Order Comment: Speci men Type: BLOOD SPECIMENOrdering Facility: [facility] Address: [address] [place] [address] Performed By: #### 5 7782-5, RADHA 4537-05 ####[facility] LABCLIA [id number] [place] [address] [place] Neutrophils/100 WBC (Bld) 80.8 % Normal [facility] Comment on above: Order Comment: Speci men Type: BLOOD SPECIMENOrdering Facility: [facility] Address: [address] [place] [address] Performed By: #### 5 7782-5, STEVERARDO 4537-05 ####[facility] LABCLIA [id number] [place] [address] [place] Nucleated RBC (Bld) [#/Vol] 10*3/uL Normal <0.01 [facility] Comment on above: Order Comment: Speci men Type: BLOOD SPECIMENOrdering Facility: [facility] Address: [address] [place] [address] Performed By: #### 5 7782-5, RADHA 4537-05 ####[facility] LABCLIA [id number] [place] [address] [place] Nucleated RBC/100 WBC (Bld) [Ratio] 0.0 /100 WBC Normal [facility] Comment on above: Order Comment: Speci men Type: BLOOD SPECIMENOrdering Facility: [facility] Address: [address] [place] [address] Performed By: #### 5 7782-5, STEVERARDO 4537-05 ####[facility] LABCLIA [id number] [place] [address] [place] Platelet mean volume (Bld) [Entitic vol] 10.2 fL Normal 9.0-12.7 [facility] Comment on above: Order Comment: Speci men Type: BLOOD SPECIMENOrdering Facility: [facility] Address: [address] [place] [address] Performed By: #### 5 7782-5, STEVERARDO, 4537-05 ####[facility] LABCLIA [id number] [place] [address] [place] Platelets (Bld) [#/Vol] 330 10*3/uL Normal 150-400 [facility] Comment on above: Order Comment: Speci men Type: BLOOD SPECIMENOrdering Facility: [facility] Address: [address] [place] [address] Performed By: #### 5 7782-5, RADHA 4537-7 ####[facility] LABIA [id number] [place] [address] [place] RBC (Bld) [#/Vol] 3.94 10*6/uL Normal 3.90-5.20 [facility] Comment on above: Order Comment: Speci men Type: BLOOD SPECIMENOrdering Facility: [facility] Address: [address] [place] [address] Performed By: #### 5 7782-5, RADHA, 4537-7 ####[facility] LABIA [id number] [place] [address] [place] WBC (Bld) [#/Vol] 12.41 10*3/uL High 3.70-11.00 [facility] Comment on above: Order Comment: Speci men Type: BLOOD SPECIMENOrdering Facility: [facility] Address: [address] [place] [address] Performed By: #### 5 7782-5, RADHA 4537-7 ####[facility] LABIA [id number] [place] [address] [place] CNOVon 08-14-2024 CNOV Office Visit ([facility] ) YUSUF MEDINA ([id number]) 1935 F [place] Date Time Provider Department [...] COMBINE WITH DICLOFENAC GEL blood sugar diagnostic (RelatientUCH ULTRA TEST) test strip Test blood sugar [...] no acute (more content not included)... Normal [facility] CRP SerPl-mCncon 08-14-2024 CRP [Mass/Vol] 7.8 mg/dL High <0.9 [facility] Comment on above: Order Comment: Speci men Type: BLOOD SPECIMEN [facility] Address: [address] [place] [address] Performed By: #### 5 7021-8 #### [facility] CLIA [id number] [address] [place] [address] [place] ESR Westergren method (Bld) [Velocity]on 08-14-2024 ESR (Bld) [Velocity] 40 mm/h High 0-20 [facility] Comment on above: Order Comment: Speci men Type: BLOOD SPECIMENOrdering Facility: [facility] Address: [address] [place] [address] Performed By: #### 5 7782-5, RADHA, 4537-7 ####[facility] LABCLIA [id number] [address] [place] HbA1c (Bld)on 08-14-2024 Average glucose Estimated from glycated hemoglobin (Bld) [Mass/Vol] 197 mg/dL Normal [facility] Comment on above: Order Comment: Speci men Type: BLOOD SPECIMENOrdering Facility: [facility] Address: [address] [place] [address] Result Comment: eAG: (Estimated average glucose) is a calculated value from HgbA1c and is bank representative of the average blood glucose level in the last 2-3 month period. Performed By: #### 5 5454-3 ####[facility] LABCLIA [id number] [place] [address] [place] HbA1c (Bld) [Mass fraction] 8.5 % High 4.3-5.6 [facility] Comment on above: Order Comment: Fan meade Type: BLOOD SPECIMENOrdering Facility: [facility] Address: [address] [place] [address] Result Comment: [place] Diabetes Association guidelines indicate that patients with HgbA1c in the range 5.7-6.4% are at increased risk for development of diabetes, and intervention by lifestyle modification may be beneficial. HgbA1c greater or equal to 6.5% is considered diagnostic of diabetes. Performed By: #### 5 5454-3 ####[facility] LABIA [id number] [address] [place] PATHOLOGIST INTERPRETATION C BC/DIFFon 08-14-2024 Architectural Design Professor review Mckay (Unsp spec) [Interp] No review performed. Normal [facility] Comment on above: Order Comment: Fan meade Type: BLOOD SPECIMENOrdering Facility: [facility] Address: [address] [place] [address] Performed By: #### 5 7782-5, RADHA 7 ####[facility] [id number] [address] [place] STAFF REVIEW, CBCDIF Normal [facility] Comment on above: Order Comment: Fan meade Type: BLOOD SPECIMENOrdering Facility: [facility] Address: [address] [place] [address] Result Comment: The Pathologist Interpretation on this sample was cancelled because the hematology analyzer did not flag any parameters as requiring manual review. If there is a specific clinical concern for which you would like a pathologist to review the blood smear, please call Lab Client Services within 28 days. Performed By: #### 5 7782-5, RADHA 7-7 ####[facility] LABIA [id number] [place] [address] [place] PROTEIN ELECTROPHORESIS SERU M (P)on 08-14-2024 Albumin [Mass/Vol] 3.80 g/dL Normal 3.43-5.41 [facility] Comment on above: Order Comment: Speci men Type: BLOOD SPECIMEN [facility] Address: [address] [place] [address] Performed By: #### 2 132-9, 6-4, 51810-7, 2284-8 #### [facility] CLIA [id number] [address] [place] [address] [place] Alpha 1 globulin Elph [Mass/Vol] 0.46 g/dL High 0.18-0.43 [facility] Comment on above: Order Comment: Speci men Type: BLOOD SPECIMEN [facility] Address: [address] [place] [address] Performed By: #### 2 132-9, 6-4, 24389-4, 2283-8 #### [facility] CLIA [id number] [address] [place] [address] [place] Alpha 2 globulin Elph [Mass/Vol] 1.03 g/dL High 0.42-0.98 [facility] Comment on above: Order Comment: Speci men Type: BLOOD SPECIMEN [facility] Address: [address] [place] [address] Performed By: #### 2 132-9, 6-4, 62149-1, 2283-8 #### [facility] CLIA [id number] [address] [place] [address] [place] Beta globulin Elph [Mass/Vol] 0.84 g/dL Normal 0.61-1.17 [facility] Comment on above: Order Comment: Speci men Type: BLOOD SPECIMEN [facility] Address: [address] [place] [address] Performed By: #### 2 132-9, 6-4, 00940-0, 4-8 #### [facility] CLIA [id number] [address] [place] [address] [place] Gamma globulin Elph [Mass/Vol] 0.58 g/dL Normal 0.53-1.51 [facility] Comment on above: Order Comment: Fan meade Type: BLOOD SPECIMEN [facility] Address: [address] [place] [address] Performed By: #### 2 132-9, 2276-4, 45688-0, 2283-8 #### [facility] CLIA [id number] [address] [place] [address] [place] INTERPRETATION COMMENT FOR PROTEIN ELECTROPHORESIS The atypical region is relatively poorly defined and may represent an unusual presentation of polyclonal immunoglobulins, but cannot rule out the presence of a low level M protein. If clinically indicated, monoclonal protein analysis and serum free light chain analysis are suggested to evaluate further for monoclonal gammopathy. Normal [facility] Comment on above: Order Comment: Fan meade Type: BLOOD SPECIMEN [facility] Address: [address] [place] [address] Performed By: #### 2 132-9, 6-4, 89211-0, 2283-8 #### [facility] CLIA [id number] [address] [place] [address] [place] M-PROTEIN LOCATION Normal [facility] Comment on above: Order Comment: Fan meade Type: BLOOD SPECIMEN [facility] Address: [address] [place] [address] Result Comment: Not Applicable. Performed By: #### 2 132-9, 2276-4, 76872-5, 228-8 #### [facility] CLIA [id number] [address] [place] [address] [place] Protein Fractions [Interp] An atypical region of restricted mobility is identified on protein electrophoresis. Abnormal No definitive M protein is identified on protein electrophore sis. [facility] Comment on above: Order Comment: Fan meade Type: BLOOD SPECIMEN [facility] Address: [address] [place] [address] Performed By: #### 2 132-9, 2276-4, 44756-6, 2284-8 #### [facility] CLIA [id number] [address] [place] [address] [place] Protein.monoclonal Elph [Mass/Vol] 0.00 g/dL Normal <=0.00 [facility] Comment on above: Order Comment: Speci men Type: BLOOD SPECIMEN [facility] Address: [address] [place] [address] Performed By: #### 2 132-9, 2276-4, 43861-1, 228-8 #### [facility] CLIA [id number] [address] [place] [address] [place] SPE STAFF REVIEW Reviewed by Tanisha Sanchez MD [facility] Comment on above: Order Comment: Speci men Type: BLOOD SPECIMEN [facility] Address: [address] [place] [address] Performed By: #### 2 132-9, 2276-4, 82446-4, 228-8 #### [facility] CLIA [id number] [address] [place] [address] [place] Prot SerPl-mCncon 08-14-2024 Protein [Mass/Vol] 6.7 g/dL Normal 6.3-8.0 [facility] Comment on above: Order Comment: Speci men Type: BLOOD SPECIMEN [facility] Address: [address] [place] [address] Performed By: #### 5 7021-8 #### [facility] CLIA [id number] [address] [place] [address] [place] Prot Ur-mCncon 08-14-2024 Protein (U) [Mass/Vol] 78 mg/dL High 0-20 [facility] Comment on above: Order Comment: Speci men Type: BLOOD SPECIMEN [facility] Address: [address] [place] [address] Performed By: #### B CRPB1 #### [facility] CLIA [id number] [address] [place] [address] [place] #### [id number] #### [facility] CLIA [id number] [address] [place] [address] [place] TSH SerPl-aCncon 08-14-2024 TSH Qn 1.120 m[IU]/L Normal 0.270-4.200 [facility] Comment on above: Order Comment: Speci men Type: BLOOD SPECIMEN [facility] Address: [address] [place] [address] Performed By: #### 5 7021-8 #### [facility] CLIA [id number] [address] [place] [address] [place] URINALYSIS, DIPSTICK ONLYon 08-14-2024 Bilirubin Ql (U) Negative Normal Negative [facility] Comment on above: Order Comment: Speci men Type: BLOOD SPECIMEN [facility] Address: [address] [place] [address] Performed By: #### 2 132-9, 2276-4, 77784-3, 8 #### [facility] CLIA [id number] [address] [place] [address] [place] Clarity (Unsp spec) Clear Normal Clear [facility] Comment on above: Order Comment: Speci men Type: BLOOD SPECIMEN [facility] Address: [address] [place] [address] Performed By: #### 2 132-9, 2276-4, 05551-0, 8 #### [facility] CLIA [id number] [address] [place] [address] [place] Color (U) Yellow Normal Yellow [facility] Comment on above: Order Comment: Speci men Type: BLOOD SPECIMEN [facility] Address: [address] [place] [address] Performed By: #### 2 132-9, 2276-4, 04499-4, 2283-8 #### [facility] CLIA [id number] [address] [place] [address] [place] Glucose Test strip (U) [Mass/Vol] 1+ Abnormal Negative [facility] Comment on above: Order Comment: Speci men Type: BLOOD SPECIMEN [facility] Address: [address] [place] [address] Performed By: #### 2 132-9, 2276-4, 46504-6, 2283-8 #### [facility] CLIA [id number] [address] [place] [address] [place] Hemoglobin Ql (U) Negative Normal Negative [facility] Comment on above: Order Comment: Speci men Type: BLOOD SPECIMEN [facility] Address: [address] [place] [address] Performed By: #### 2 132-9, 6-4, 86744-2, 2283-8 #### [facility] CLIA [id number] [address] [place] [address] [place] Ketones Ql (U) Negative Normal Negative [facility] Comment on above: Order Comment: Speci men Type: BLOOD SPECIMEN [facility] Address: [address] [place] [address] Performed By: #### 2 132-9, 2276-4, 25223-8, 228-8 #### [facility] CLIA [id number] [address] [place] [address] [place] Leukocyte esterase Test strip Ql (U) Negative Normal Negative [facility] Comment on above: Order Comment: Speci men Type: BLOOD SPECIMEN [facility] Address: [address] [place] [address] Performed By: #### 2 132-9, 2276-4, 35785-3, 2283-8 #### [facility] CLIA [id number] [address] [place] [address] [place] Nitrite Ql (U) Negative Normal Negative [facility] Comment on above: Order Comment: Speci men Type: BLOOD SPECIMEN [facility] Address: [address] [place] [address] Performed By: #### 2 132-9, 2276-4, 81870-2, 2283-8 #### [facility] CLIA [id number] [address] [place] [address] [place] pH (U) 6.5 [pH] Normal <8.5 [facility] Comment on above: Order Comment: Speci men Type: BLOOD SPECIMEN [facility] Address: [address] [place] [address] Performed By: #### 2 132-9, 6-4, 83815-7, 8 #### [facility] CLIA [id number] [address] [place] [address] [place] Protein (U) [Mass/Vol] 2+ Abnormal Negative [facility] Comment on above: Order Comment: Speci men Type: BLOOD SPECIMEN [facility] Address: [address] [place] [address] Performed By: #### 2 132-9, 6-4, 71847-0, 8 #### [facility] CLIA [id number] [address] [place] [address] [place] Specific gravity (U) [Rel density] 1.020 Normal 1.005-1.030 [facility] Comment on above: Order Comment: Speci men Type: BLOOD SPECIMEN [facility] Address: [address] [place] [address] Performed By: #### 2 132-9, 6-4, 71751-5, 2283-8 #### [facility] CLIA [id number] [address] [place] [address] [place] Urobilinogen Ql (U) 1.0 EU/dL Normal 0.2-1.0 EU/dL [facility] Comment on above: Order Comment: Speci men Type: BLOOD SPECIMEN [facility] Address: [address] [place] [address] Performed By: #### 2 132-9, 2276-4, 38851-9, 2284-8 #### [facility] CLIA [id number] [address] [place] [address] [place] URINE PROTEIN ELECTROPHORESI S RANDOM (P)on 08-14-2024 Albumin Elph (U) [Mass fraction] 69.11 % Normal [facility] Comment on above: Order Comment: Speci men Type: URINE SPECIMENOrdering Facility: [facility] Address: [address] [place] [address] Performed By: #### L [id number] ####[facility] [id number] [place] [address] [place] Alpha 1 globulin Elph (U) [Mass fraction] 7.87 % Normal [facility] Comment on above: Order Comment: Speci men Type: URINE SPECIMENOrdering Facility: [facility] Address: [address] [place] [address] Performed By: #### L [id number] ####[facility] [id number] [place] [address] [place] Alpha 2 globulin Elph (U) [Mass fraction] 6.40 % Normal [facility] Comment on above: Order Comment: Speci men Type: URINE SPECIMENOrdering Facility: [facility] Address: [address] [place] [address] Performed By: #### L [id number] ####[facility] [id number] [address] [place] Beta globulin Elph (U) [Mass fraction] 11.20 % Normal [facility] Comment on above: Order Comment: Speci men Type: URINE SPECIMENOrdering Facility: [facility] Address: [address] [place] [address] Performed By: #### L [id number] ####[facility] [id number] [place] [address] [place] [facility] Gamma globulin Elph (U) [Mass fraction] 5.42 % Normal [facility] Comment on above: Order Comment: Speci men Type: URINE SPECIMENOrdering Facility: [facility] Address: [address] [place] [address] Performed By: #### L [id number] ####[facility] [id number] [place] [address] [place] Protein Fractions Elph Mckay (U) [Interp] No definitive M protein is identified on protein electrophoresis. Normal No definitive M protein is identified on protein electrophore sis. [facility] Comment on above: Order Comment: Speci men Type: URINE SPECIMENOrdering Facility: [facility] Address: [address] [place] [address] Performed By: #### L [id number] ####[facility] [id number] [address] [place] STAFF REVIEW (URINE ELECTRO) Reviewed by Brianne Mosley M.D., Ph.D Normal [facility] Comment on above: Order Comment: Speci men Type: URINE SPECIMENOrdering Facility: [facility] Address: [address] [place] [address] Performed By: #### L [id number] ####[facility] [id number] [place] [address] [place] ALLIED HEALTHon 08-13-2024 [facility] HNO ID: [id number] Author: TYESHA CHENEY RT(R) Service: Radiology Author [...] PATIENT PRESENTS WITH AN IMPLANTABLE OR ATTACHED FIREBOAT OPERATOR: No RADIOLOGY DEPARTMENT: General X-ray: Exam(s) Completed: Chest X-Ray PERIPHERAL IV DATA: Not applicable SIGNED BY: RT Carolina(R) August 13, 2024 3:49 PM Normal [facility] CBC W Auto Differential pane l (Bld)on 08-13-2024 Basophils (Bld) [#/Vol] 0.03 10*3/uL Normal <0.11 [facility] Comment on above: Order Comment: Fan meade Type: BLOOD SPECIMEN Ordering Facility: [facility] Address: [address] [place] [address] Performed By: #### 5 7021-8 #### [facility] CLIA [id number] [address] [place] [address] [place] Basophils/100 WBC (Bld) 0.2 % Normal [facility] Comment on above: Order Comment: Fan meade Type: BLOOD SPECIMEN Ordering Facility: [facility] Address: [address] [place] [address] Performed By: #### 5 7021-8 #### [facility] CLIA [id number] [address] [place] [address] [place] Differential cell count method Nom (Bld) Auto Normal [facility] Comment on above: Order Comment: Fan meade Type: BLOOD SPECIMEN Ordering Facility: [facility] Address: [address] [place] [address] Performed By: #### 5 7021-8 #### [facility] CLIA [id number] [address] [place] [address] [place] Eosinophils (Bld) [#/Vol] 10*3/uL Normal <0.46 [facility] Comment on above: Order Comment: Speci men Type: BLOOD SPECIMEN Ordering Facility: [facility] Address: [address] [place] [address] Performed By: #### 5 7021-8 #### [facility] CLIA [id number] [address] [place] [address] [place] Eosinophils/100 WBC (Bld) 0.1 % Normal [facility] Comment on above: Order Comment: Speci men Type: BLOOD SPECIMEN Ordering Facility: [facility] Address: [address] [place] [address] Performed By: #### 5 7021-8 #### [facility] CLIA [id number] [address] [place] [address] [place] Erythrocyte distribution width (RBC) [Ratio] 14.6 % Normal 11.5-15.0 [facility] Comment on above: Order Comment: Speci men Type: BLOOD SPECIMEN Ordering Facility: [facility] Address: [address] [place] [address] Performed By: #### 5 7021-8 #### [facility] CLIA [id number] [address] [place] [address] [place] Hematocrit (Bld) [Volume fraction] 33.5 % Low 36.0-46.0 [facility] Comment on above: Order Comment: Speci men Type: BLOOD SPECIMEN Ordering Facility: [facility] Address: [address] [place] [address] Performed By: #### 5 7021-8 #### [facility] CLIA [id number] [address] [place] [address] [place] Hemoglobin (Bld) [Mass/Vol] 10.9 g/dL Low 11.5-15.5 [facility] Comment on above: Order Comment: Speci men Type: BLOOD SPECIMEN Ordering Facility: [facility] Address: [address] [place] [address] Performed By: #### 5 7021-8 #### [facility] CLIA [id number] [address] [place] [address] [place] Immature granulocytes (Bld) [#/Vol] 0.09 10*3/uL Normal <0.10 [facility] Comment on above: Order Comment: Speci men Type: BLOOD SPECIMEN Ordering Facility: [facility] Address: [address] [place] [address] Performed By: #### 5 7021-8 #### [facility] CLIA [id number] [address] [place] [address] [place] Immature granulocytes/100 WBC (Bld) 0.5 % Normal [facility] Comment on above: Order Comment: Speci men Type: BLOOD SPECIMEN Ordering Facility: [facility] Address: [address] [place] [address] Performed By: #### 5 7021-8 #### [facility] CLIA [id number] [address] [place] [address] [place] Lymphocytes (Bld) [#/Vol] 0.91 10*3/uL Low 1.00-4.00 [facility] Comment on above: Order Comment: Speci men Type: BLOOD SPECIMEN Ordering Facility: [facility] Address: [address] [place] [address] Performed By: #### 5 7021-8 #### [facility] CLIA [id number] [address] [place] [address] [place] Lymphocytes/100 WBC (Bld) 5.3 % Normal [facility] Comment on above: Order Comment: Speci men Type: BLOOD SPECIMEN Ordering Facility: [facility] Address: [address] [place] [address] Performed By: #### 5 7021-8 #### [facility] CLIA [id number] [address] [facility] MCH (RBC) [Entitic mass] 28.6 pg Normal 26.0-34.0 [facility] Comment on above: Order Comment: Speci men Type: BLOOD SPECIMEN Ordering Facility: [facility] Address: [address] [place] [address] Performed By: #### 5 7021-8 #### [facility] CLIA [id number] [address] [place] [address] [place] MCHC (RBC) [Mass/Vol] 32.5 g/dL Normal 30.5-36.0 [facility] Comment on above: Order Comment: Speci men Type: BLOOD SPECIMEN Ordering Facility: [facility] Address: [address] [place] [address] Performed By: #### 5 7021-8 #### [facility] CLIA [id number] [address] [place] [address] [place] MCV (RBC) [Entitic vol] 87.9 fL Normal 80.0-100.0 [facility] Comment on above: Order Comment: Speci men Type: BLOOD SPECIMEN Ordering Facility: [facility] Address: [address] [place] [address] Performed By: #### 5 7021-8 #### [facility] CLIA [id number] [address] [place] [address] [place] Monocytes (Bld) [#/Vol] 0.91 10*3/uL High <0.87 [facility] Comment on above: Order Comment: Speci men Type: BLOOD SPECIMEN Ordering Facility: [facility] Address: [address] [place] [address] Performed By: #### 5 7021-8 #### [facility] CLIA [id number] [address] [place] [address] Monocytes/100 WBC (Bld) 5.3 % Normal [facility] Comment on above: Order Comment: Speci men Type: BLOOD SPECIMEN Ordering Facility: [facility] Address: [address] [place] [address] Performed By: #### 5 7021-8 #### [facility] CLIA [id number] [address] [place] [address] [place] Neutrophils (Bld) [#/Vol] 15.20 10*3/uL High 1.45-7.50 [facility] Comment on above: Order Comment: Speci men Type: BLOOD SPECIMEN Ordering Facility: [facility] Address: [address] [place] [address] Performed By: #### 5 7021-8 #### [facility] CLIA [id number] [address] [place] [address] [place] Neutrophils/100 WBC (Bld) 88.6 % Normal [facility] Comment on above: Order Comment: Speci men Type: BLOOD SPECIMEN Ordering Facility: [facility] Address: [address] [place] [address] Performed By: #### 5 7021-8 #### [facility] CLIA [id number] [address] [place] [address] [place] Nucleated RBC (Bld) [#/Vol] 10*3/uL Normal <0.01 [facility] Comment on above: Order Comment: Speci men Type: BLOOD SPECIMEN Ordering Facility: [facility] Address: [address] [place] [address] Performed By: #### 5 7021-8 #### [facility] CLIA [id number] [address] [place] [address] [place] Nucleated RBC/100 WBC (Bld) [Ratio] 0.0 /100 WBC Normal [facility] Comment on above: Order Comment: Speci men Type: BLOOD SPECIMEN Ordering Facility: [facility] Address: [address] [place] [address] Performed By: #### 5 7021-8 #### [facility] CLIA [id number] [address] [place] [address] [place] Platelet mean volume (Bld) [Entitic vol] 9.0 fL Normal 9.0-12.7 [facility] Comment on above: Order Comment: Speci men Type: BLOOD SPECIMEN Ordering Facility: [facility] Address: [address] [place] [address] Performed By: #### 5 7021-8 #### [facility] CLIA [id number] [address] [place] [address] [place] Platelets (Bld) [#/Vol] 321 10*3/uL Normal 150-400 [facility] Comment on above: Order Comment: Speci men Type: BLOOD SPECIMEN Ordering Facility: [facility] Address: [address] [place] [address] Performed By: #### 5 7021-8 #### [facility] CLIA [id number] [address] [place] [address] [place] RBC (Bld) [#/Vol] 3.81 10*6/uL Low 3.90-5.20 [facility] Comment on above: Order Comment: Speci men Type: BLOOD SPECIMEN Ordering Facility: [facility] Address: [address] [place] [address] Performed By: #### 5 7021-8 #### [facility] CLIA [id number] [address] [place] [address] [place] WBC (Bld) [#/Vol] 17.15 10*3/uL High 3.70-11.00 [facility] Comment on above: Order Comment: Speci men Type: BLOOD SPECIMEN Ordering Facility: [facility] Address: [address] [place] [address] Performed By: #### 5 7021-8 #### [facility] CLIA [id number] [address] [place] [address] [place] CK SerPl-cCncon 08-13-2024 CK [Catalytic activity/Vol] 56 U/L Normal 42-196 [facility] Comment on above: Order Comment: Speci men Type: BLOOD SPECIMEN Ordering Facility: [facility] Address: [address] [place] [address] Performed By: #### 2 132-9, 2276-4, 85805-0, 2284-8 #### [facility] CLIA [id number] [address] [place], [place] [address] [place] Comprehensive metabolic 2000 panelon 08-13-2024 Albumin [Mass/Vol] 4.0 g/dL Normal 3.9-4.9 [facility] Comment on above: Order Comment: Speci men Type: BLOOD SPECIMEN Ordering Facility: [facility] Address: [address] [place] [address] Performed By: #### 2 132-9, 2276-4, 44441-7, 2283-8 #### [facility] CLIA [id number] [address] [place] [address] [place] ALP [Catalytic activity/Vol] 99 U/L Normal 34-123 [facility] Comment on above: Order Comment: Speci men Type: BLOOD SPECIMEN Ordering Facility: [facility] Address: [address] [place] [address] Performed By: #### 2 132-9, 2276-4, 15483-3, 2283-8 #### [facility] CLIA [id number] [address] [place] [address] [place] ALT [Catalytic activity/Vol] 15 U/L Normal 7-38 [facility] Comment on above: Order Comment: Speci men Type: BLOOD SPECIMEN Ordering Facility: [facility] Address: [address] [place] [address] Performed By: #### 2 132-9, 2276-4, 52537-9, 2284-8 #### [facility] CLIA [id number] [address] [place] [address] [place] Anion gap [Moles/Vol] 14 mmol/L Normal 8-15 [facility] Comment on above: Order Comment: Speci men Type: BLOOD SPECIMEN Ordering Facility: [facility] Address: [address] [place] [address] Performed By: #### 2 132-9, 2276-4, 98150-9, 2284-8 #### [facility] CLIA [id number] [address] [place] [address] [place] AST [Catalytic activity/Vol] 18 U/L Normal 13-35 [facility] Comment on above: Order Comment: Speci men Type: BLOOD SPECIMEN Ordering Facility: [facility] Address: [address] [place] [address] Performed By: #### 2 132-9, 2276-4, 08521-0, 2284-8 #### [facility] CLIA [id number] [address] [place] [address] [place] Bilirubin [Mass/Vol] 0.2 mg/dL Normal 0.2-1.3 [facility] Comment on above: Order Comment: Speci men Type: BLOOD SPECIMEN Ordering Facility: [facility] Address: [address] [place] [address] Performed By: #### 2 132-9, 2276-4, 31961-9, 2284-8 #### [facility] CLIA [id number] [address] [place] [address] [place] Calcium [Mass/Vol] 9.2 mg/dL Normal 8.5-10.2 [facility] Comment on above: Order Comment: Speci men Type: BLOOD SPECIMEN Ordering Facility: [facility] Address: [address] [place] [address] Performed By: #### 2 132-9, 2276-4, 95445-0, 2284-8 #### [facility] CLIA [id number] [address] [place] [address] [place] Chloride [Moles/Vol] 96 mmol/L Low 98-107 [facility] Comment on above: Order Comment: Speci men Type: BLOOD SPECIMEN Ordering Facility: [facility] Address: [address] [place] [address] Performed By: #### 2 132-9, 2276-4, 20092-2, 2283-8 #### [facility] [place] [id number] [address] [place] [address] [place] CO2 [Moles/Vol] 24 mmol/L Normal 22-30 [facility] Comment on above: Order Comment: Speci men Type: BLOOD SPECIMEN Ordering Facility: [facility] Address: [address] [place] [address] Performed By: #### 2 132-9, 2276-4, 55621-2, 2283-8 #### [facility] [place] [id number] [address] [place] [address] [place] Creatinine [Mass/Vol] 0.87 mg/dL Normal 0.58-0.96 [facility] Comment on above: Order Comment: Speci men Type: BLOOD SPECIMEN Ordering Facility: [facility] Address: [address] [place] [address] Performed By: #### 2 132-9, 6-4, 08140-0, 2283-8 #### [facility] [place] [id number] [address] [place] [address] [place] Creatinine and Glomerular filtration rate.predicted panel (S/P/Bld) 64 mL/min/1.73m??? Normal >=60 [facility] Comment on above: Order Comment: Speci men Type: BLOOD SPECIMEN Ordering Facility: [facility] Address: [address] [place] [address] Result Comment: Hilda mated Glomerular Filtration Rate [...] GFR. Performed By: #### 2 132-9, 2276-4, 84886-1, 2283-8 #### [facility] CLIA [id number] [address] [place] [address] [place] Glucose [Mass/Vol] 212 mg/dL High 74-99 [facility] Comment on above: Order Comment: Fan meade Type: BLOOD SPECIMEN Ordering Facility: [facility] Address: [address] [place] [address] Result Comment: The [place] [employer] (ADA) provides guidance for cutoff [...] Standards of Medical Care in Diabetes 2016, [place]. Diabetes Care. 2016.39(Suppl 1). Performed By: #### 2 132-9, 2276-4, 26414-3, 2284-8 #### [facility] CLIA [id number] [address] [place] [address] [place] Potassium [Moles/Vol] 4.6 mmol/L Normal 3.7-5.1 [facility] Comment on above: Order Comment: Fan meade Type: BLOOD SPECIMEN Ordering Facility: [facility] Address: [address] [place] [address] Performed By: #### 2 132-9, 2276-4, 51048-5, 2284-8 #### [facility] CLIA [id number] [address] [place] [address] [place] Protein [Mass/Vol] 6.5 g/dL Normal 6.3-8.0 [facility] Comment on above: Order Comment: Fan meade Type: BLOOD SPECIMEN Ordering Facility: [facility] Address: [address] [place] [address] Performed By: #### 2 132-9, 2276-4, 38373-0, 2284-8 #### [facility] IA [id number] [address] [place] [address] [place] Sodium [Moles/Vol] 134 mmol/L Low 136-144 [facility] Comment on above: Order Comment: Speci men Type: BLOOD SPECIMEN Ordering Facility: [facility] Address: [address] [place] [address] Performed By: #### 2 132-9, 2276-4, 95544-0, 2284-8 #### [facility] IA [id number] [address] [place] [address] [place] Urea nitrogen [Mass/Vol] 29 mg/dL High 7-21 [facility] Comment on above: Order Comment: Speci men Type: BLOOD SPECIMEN Ordering Facility: [facility] Address: [address] [place] [address] Performed By: #### 2 132-9, 2276-4, 80426-9, 2284-8 #### [facility] IA [id number] [address] [place] [address] [place] ECG COMPLETEon 08-13-2024 ECG COMPLETE Ventricular Rate : 9 7 BPM Atrial Rate : 97 BPM P-R Interval : 174 ms QRS Duration : 78 ms Q-T Interval : 328 ms QTC Calculation(Bazett) : 416 ms Calculated P [place] : 64 degrees Calculated R [place] : 29 degrees Calculated T [place] : 68 degrees SINUS RHYTHM WITH PREMATURE ATRIAL COMPLEXES CANNOT EXCLUDE ANTERIOR MYOCARDIAL INFARCTION , AGE UNDETERMINED ABNORMAL ECG 1402 08/13/2024 Confirmed by DO ROMO ALAN ([id number]), clinical editor CAROLINA MERRITT ([id number]) on 08/14/2024 8:29:13 AM NAME : YUSUF MEDINA PID : [id number] : 1935 Gender : Female Race : ORD : [id number] Procedure Date : Aug 13 2024 14:04:37 Edit Date : Aug 14 2024 08:29:17 Diagnosis: SINUS RHYTHM WITH PREMATURE ATRIAL COMPLEXES CANNOT EXCLUDE ANTERIOR MYOCARDIAL INFARCTION , AGE UNDETERMINED ABNORMAL ECG 1402 08/13/2024 Confirmed by DO ROMO ALAN ([id number]), clinical editor CAROLINA MERRITT ([id number]) on 08/14/2024 8:29:13 AM Test Reason : Chest Pain Location : 215 : [facility]UED [id number] Overread By : DO ROMO ALAN Edited By : CAROLINA MERRITT Referred By : , Acquired by : Ally MURGUIA [facility] ED NOTEon 08-13-2024 ED NOTE HNO ID: [id number] Author: ELIF SAM, LIT Service: Nursing Author Type: Registered Nurse Type: ED Notes Filed: 08/13/2024 17:42 Note Text: Pt given discharge instructions. Verbalized understanding. Pt taken to daughters car by wheelchair. Normal [facility] ED NOTE HNO ID: [id number] Author: KONSTANTIN FLORES, LIT Service: Nursing Author [...] staff of any changes in condition. Normal [facility] ED PROV NOTEon 08-13-2024 ED PROV NOTE HNO ID: [id number] Author: MARIUSZ ROMO DO Service: Emergency Medicine [...] better. Her daughter is translating. They speak [place]. She does not want me to call an additional speed winder. Patient does not have headache. No posterior head or neck pain. No chest pain. No thoracic lumbar back pain. No abdominal pain. No dysuria. No urinary frequency. No diarrhea. No constipation. She really is without complaints. She believes she has been eating fine. Her daughter adds that sometimes when they put her pill development planner medications together she takes both a.m. [...] - REMV CATARACT EXTRACAP,INSERT LENS Bilateral 2020 [facility] FAMILY HISTORY Problem Relation Age of [...] / D (more content not included)... Normal [facility] HIGH SENSITIVITY TROPONIN T (INITIAL)on 08-13-2024 Troponin T.cardiac High sensitivity method [Mass/Vol] 30 ng/L High <12 [facility] Comment on above: Order Comment: Speci men Type: BLOOD SPECIMEN Ordering Facility: [facility] Address: [address] [place] [address] Performed By: #### 2 132-9, 2276-4, 58851-9, 2284-8 #### [facility] CLIA [id number] [address] [place], [place] [address] [place] [address] [place] HIGH SENSITIVITY TROPONIN T (SECOND)on 08-13-2024 Troponin T.cardiac High sensitivity method [Mass/Vol] 29 ng/L High <12 [facility] Comment on above: Order Comment: Fan meade Type: BLOOD SPECIMENOrdering Facility: [facility] Address: [address] [place] [address] Performed By: #### L [id number] ####[facility] [id number] [place] [address] [place] PT panel Coag (PPP)on 2023 INR Coag (PPP) [Relative time] 1.0 {INR} Normal 0.9-1.3 [facility] Comment on above: Order Comment: Fan meade Type: BLOOD SPECIMENOrdering Facility: [facility] Address: [address] [place] [address] Result Comment: Kendra min K Antagonist (VKA) Therapeutic Range: INR 2 to 3 (Target INR of 2.5) Note: For patients treated with VKA drugs, such as warfarin, the [place] [employer] 2012 Guideline recommends [...] GH, et al. Chest 2012, 141:7S-47S John TORRES et al. [facility] 2017, 70: 252-289 Performed By: #### 3 4528-0 ####[facility]ORYCLIA [id number] [place] [address] [place] PT Coag (PPP) [Time] 10.6 s Normal 9.7-13.0 [facility] Comment on above: Order Comment: Speci men Type: BLOOD SPECIMENOrdering Facility: [facility] Address: [address] [place] [address] Performed By: #### 3 4528-0 ####[facility]ORY[facility]IA [id number] [place] [address] [place] Urinalysis complete panel (U )on 08-13-2024 Bilirubin Ql (U) Negative Normal Negative [facility] Comment on above: Order Comment: Speci men Type: BLOOD SPECIMEN Ordering Facility: [facility] Address: [address] [place] [address] Performed By: #### 2 132-9, 6-4, 38639-3, 2283-8 #### [facility] CLIA [id number] [address] [place] [address] [place] Clarity (Unsp spec) Clear Normal Clear [facility] Comment on above: Order Comment: Speci men Type: BLOOD SPECIMEN Ordering Facility: [facility] Address: [address] [place] [address] Performed By: #### 2 132-9, 6-4, 73850-0, 2283-8 #### [facility] CLIA [id number] [address] [place] [address] [place] Color (U) Yellow Normal yellow [facility] Comment on above: Order Comment: Speci men Type: BLOOD SPECIMEN Ordering Facility: [facility] Address: [address] [place] [address] Performed By: #### 2 132-9, 2276-4, 68740-7, 2284-8 #### [facility] CLIA [id number] [address] [place] [address] [place] Epithelial cells LM.HPF (Urine sed) [#/Area] Few Normal [facility] Comment on above: Order Comment: Speci men Type: BLOOD SPECIMEN Ordering Facility: [facility] Address: [address] [place] [address] Result Comment: Few Performed By: #### 2 132-9, 2276-4, 38441-8, 2283-8 #### [facility] [facility] CLIA [id number] [address] [place] [address] [place] Glucose Test strip (U) [Mass/Vol] Negative Normal Trace, Negative [facility] Comment on above: Order Comment: Speci men Type: BLOOD SPECIMEN Ordering Facility: [facility] Address: [address] [place] [address] Performed By: #### 2 132-9, 2276-4, 31964-5, 8 #### [facility] CLIA [id number] [address] [place] [address] [place] Hemoglobin Ql (U) Trace Normal Negative, Trace [facility] Comment on above: Order Comment: Speci men Type: BLOOD SPECIMEN Ordering Facility: [facility] Address: [address] [place] [address] Performed By: #### 2 132-9, 6-4, 85734-0, 2283-8 #### [facility] CLIA [id number] [address] [place] [address] [place] Ketones Ql (U) Negative Normal Negative, Trace [facility] Comment on above: Order Comment: Speci men Type: BLOOD SPECIMEN Ordering Facility: [facility] Address: [address] [place] [address] Performed By: #### 2 132-9, 6-4, 20043-7, 2283-8 #### [facility] CLIA [id number] [address] [place] [address] [place] Leukocyte esterase Test strip Ql (U) Negative Normal Negative, 25 Vani/uL [facility] Comment on above: Order Comment: Speci men Type: BLOOD SPECIMEN Ordering Facility: [facility] Address: [address] [place] [address] Performed By: #### 2 132-9, 6-4, 19804-2, 2283-8 #### [facility] CLIA [id number] [address] [place] [address] [place] Nitrite Ql (U) Negative Normal Negative [facility] Comment on above: Order Comment: Speci men Type: BLOOD SPECIMEN Ordering Facility: [facility] Address: [address] [place] [address] Performed By: #### 2 132-9, 6-4, 27762-8, 2283-8 #### [facility] CLIA [id number] [address] [place] [address] [place] pH (U) 6.0 [pH] Normal 5.0-8.0 [facility] Comment on above: Order Comment: Speci men Type: BLOOD SPECIMEN Ordering Facility: [facility] Address: [address] [place] [address] Performed By: #### 2 132-9, 6-4, 18116-1, 2283-8 #### [facility] CLIA [id number] [address] [place] [address] [place] Protein (U) [Mass/Vol] 1+ Abnormal Trace , Negative [facility] Comment on above: Order Comment: Speci men Type: BLOOD SPECIMEN Ordering Facility: [facility] Address: [address] [place] [address] Performed By: #### 2 132-9, 6-4, 96303-3, 2283-8 #### [facility] CLIA [id number] [address] [place] [address] [place] RBC LM.HPF (Urine sed) [#/Area] 3-5 /HPF Abnormal 0-3 /HPF [facility] Comment on above: Order Comment: Speci men Type: BLOOD SPECIMEN Ordering Facility: [facility] Address: [address] [place], [place] [address] Performed By: #### 2 132-9, 2276-4, 53919-0, 228-8 #### [facility] CLIA [id number] [address] [place] [address] [place] Specific gravity (U) [Rel density] 1.021 Normal 1.005-1.030 [facility] Comment on above: Order Comment: Speci men Type: BLOOD SPECIMEN Ordering Facility: [facility] Address: [address] [place] [address] Performed By: #### 2 132-9, 2276-4, 57394-3, 2283-8 #### [facility] CLIA [id number] [address] [place] [address] [place] Urobilinogen Ql (U) Normal Normal Normal [facility] Comment on above: Order Comment: Speci men Type: BLOOD SPECIMEN Ordering Facility: [facility] Address: [address] [place] [address] Performed By: #### 2 132-9, 2276-4, 86466-6, 2283-8 #### [facility] CLIA [id number] [address] [place] [address] [place] WBC LM.HPF (Urine sed) [#/Area] 0-5 /HPF Normal 0-5 /HPF [facility] Comment on above: Order Comment: Speci men Type: BLOOD SPECIMEN Ordering Facility: [facility] Address: [address] [place] [address] Performed By: #### 2 132-9, 2276-4, 89490-6, 2283-8 #### [facility] CLIA [id number] [address] [place] [address] [place] XR CHEST 1V [...] of bilateral shoulders IMPRESSION: Bilateral basilar atelectasis [employer] Director: PHU Transcribe Date/Time: Aug 13 2024 4:03P Dictated by : GILLIAN ELLIOTT MD This examination was interpreted and the report reviewed and electronically signed by: GILLIAN ELLIOTT MD on Aug 13 2024 4:04PM EST [id number] Normal [facility] CNOVon 07-12-2024 CNOV Office Visit ([facility] ) YUSUF MEDINA ([id number]) 1935 F [place] Date Time Provider Department [...] [D50.9] Order(s):BASIC METABOLIC PANEL [SQBMP] Order #: [id number] FUTURE HEMOGLOBIN A1C [CCHNS8W] Order #: [id number] FUTURE ALBUMIN/CREATININE RATIO, URINE [SQUACR] Order #: [id number] FUTURE COMPLETE BLOOD COUNT [SQCBC] Order #: [id number] FUTURE THYROID STIMULATING HORMONE [SQTSH] Order #: [id number] FUTURE Prescriptions as of 07/12/2024 - pioglitazone [...] diclofenac (VOLTARE (more content not included)... Normal [facility] Basic metabolic 2000 panelon 07-11-2024 Anion gap [Moles/Vol] 14 mmol/L Normal 8-15 [facility] Comment on above: Order Comment: Speci men Type: BLOOD SPECIMENOrdering Facility: [facility] Address: [address] [place] [address] Performed By: #### 2 4321-2 ####[facility] [id number] [place] [id number] [place] Calcium [Mass/Vol] 9.9 mg/dL Normal 8.5-10.2 [facility] Comment on above: Order Comment: Speci men Type: BLOOD SPECIMENOrdering Facility: [facility] Address: [address] [place] [address] Performed By: #### 2 4321-2 ####[facility] [id number] [place] [address] [place] Chloride [Moles/Vol] 101 mmol/L Normal 98-107 [facility] Comment on above: Order Comment: Speci men Type: BLOOD SPECIMENOrdering Facility: [facility] Address: [address] [place] [address] Performed By: #### 2 4321-2 ####[facility]CLIA [id number] [place] [address] [place] CO2 [Moles/Vol] 20 mmol/L Low 22-30 [facility] Comment on above: Order Comment: Speci men Type: BLOOD SPECIMENOrdering Facility: [facility] Address: [address] [place] [address] Performed By: #### 2 4321-2 ####[facility]IA [id number] [place] [address] [place] Creatinine [Mass/Vol] 0.93 mg/dL Normal 0.58-0.96 [facility] Comment on above: Order Comment: Fan meade Type: BLOOD SPECIMENOrdering Facility: [facility] Address: [address] [place] [address] Performed By: #### 2 4321-2 ####[facility]IA [id number] [place] [address] [place] Creatinine and Glomerular filtration rate.predicted panel (S/P/Bld) 59 mL/min/1.73m??? Low >=60 [facility] Comment on above: Order Comment: Fan meade Type: BLOOD SPECIMENOrdering Facility: [facility] Address: [address] [place] [address] Result Comment: Hilda mated Glomerular Filtration Rate [...] GFR. Performed By: #### 2 4321-2 ####[facility]CLIA [id number] [place] [address] [place] Glucose [Mass/Vol] 244 mg/dL High 74-99 [facility] Comment on above: Order Comment: Fan meade Type: BLOOD SPECIMENOrdering Facility: [facility] Address: [address] [place] [address] Result Comment: The [place] Diabetes Association (ADA) provides guidance for cutoff [...] Standards of Medical Care in Diabetes 2016, [place] Diabetes Association. Diabetes Care. 2016.39(Suppl 1). Performed By: #### 2 4321-2 ####[facility] LABCLIA [id number] [place] [address] [place] Potassium [Moles/Vol] 5.2 mmol/L High 3.7-5.1 [facility] Comment on above: Order Comment: Speci men Type: BLOOD SPECIMENOrdering Facility: [facility] Address: [address] [place] [address] Performed By: #### 2 4321-2 ####[facility] LABCLIA [id number] [place] [address] [place] Sodium [Moles/Vol] 135 mmol/L Low 136-144 [facility] Comment on above: Order Comment: Speci men Type: BLOOD SPECIMENOrdering Facility: [facility] Address: [address] [place] [address] Performed By: #### 2 4321-2 ####[facility] LABCLIA [id number] [place] [address] [place] Urea nitrogen [Mass/Vol] 30 mg/dL High 7-21 [facility] Comment on above: Order Comment: Speci men Type: BLOOD SPECIMENOrdering Facility: [facility] Address: [address] [place] [address] Performed By: #### 2 4321-2 ####[facility] LABCLIA [id number] [place] [address] [place] HbA1c (Bld)on 07-11-2024 Average glucose Estimated from glycated hemoglobin (Bld) [Mass/Vol] 189 mg/dL Normal [facility] Comment on above: Order Comment: Katei men Type: BLOOD SPECIMENOrdering Facility: [facility] Address: [address] [place] [address] Result Comment: eAG: (Estimated average glucose) is a calculated value from HgbA1c and is bank representative of the average blood glucose level in the last 2-3 month period. Performed By: #### 5 5454-3 ####[facility] [id number] [place] [address] [place] HbA1c (Bld) [Mass fraction] 8.2 % High 4.3-5.6 [facility] Comment on above: Order Comment: Fan meade Type: BLOOD SPECIMENOrdering Facility: [facility] Address: [address] [place] [address] Result Comment: Amer ican Diabetes Association guidelines indicate that patients with HgbA1c in the range 5.7-6.4% are at increased risk for development of diabetes, and intervention by lifestyle modification may be beneficial. HgbA1c greater or equal to 6.5% is considered diagnostic of diabetes. Performed By: #### 5 5454-3 ####[facility] [id number] [place] [address] [place] LIPID PANEL, NONFASTINGon Cholesterol [Mass/Vol] 151 mg/dL Normal <200 [facility] Comment on above: Order Comment: Fan meade Type: BLOOD SPECIMEN Ordering Facility: [facility] Address: [address] [place] [address] Result Comment: <200 mg/dL, Desirable 200-239 mg/dL, Borderline high >239 mg/dL, High Performed By: #### 5 7021-8 #### [facility] CLIA [id number] [place] [facility] HDL CHOLESTEROL, NF 59 mg/dL Normal >39 [facility] Comment on above: Order Comment: Fan meade Type: BLOOD SPECIMEN Ordering Facility: [facility] Address: [address] [place] [address] Result Comment: 40-5 9 mg/dL, Acceptable >59 mg/dL, High: Negative risk factor for coronary heart disease <40 mg/dL, Low: Positive risk factor for coronary heart disease Performed By: #### 5 7021-8 #### [facility] CLIA [id number] [address] [place] [address] [place] LDL CHOLESTEROL, NF 71 mg/dL Normal <100 [facility] Comment on above: Order Comment: Fan meade Type: BLOOD SPECIMEN Ordering Facility: [facility] Address: [address] [place] [address] Result Comment: <100 mg/dL, Optimal 100-129 mg/dL, Near optimal/above optimal 130-159 mg/dL, Borderline high 160-189 mg/dL, High >189 mg/dL, Very high Secondary prevention optimal LDL Cholesterol levels are recommended to be < 70 mg/dL Performed By: #### 5 7021-8 #### [facility] CLIA [id number] [address] [place] [address] [place] LDL/HDL RATIO, NF 1.20 mg/dL Normal <2.54 [facility] Comment on above: Order Comment: Fan meade Type: BLOOD SPECIMEN Ordering Facility: [facility] Address: [address] [place] [address] Result Comment: Isabella johnson: 1. National Cholesterol Education Program ATP III Guideline At-A-Glance Quick Desk Reference: National Heart, Lung, and Blood [place]. National Institutes of Health. 2001: NIH Publication No. 01-3305. 2. An International Atherosclerosis Society position paper: global recommendations for the management of dyslipidemia: executive summary, Atherosclerosis. 2014: 232(2):410-413. Performed By: #### 5 7021-8 #### [facility] CLIA [id number] [address] [place] [address] [place] NON HDL CHOL, NF 92 mg/dL Normal <130 [facility] Comment on above: Order Comment: Fan meade Type: BLOOD SPECIMEN Ordering Facility: [facility] Address: [address] [place] [address] Result Comment: <130 mg/dL, Optimal 130-159 mg/dL, Near optimal/above optimal 160-189 mg/dL, Borderline high 190-219 mg/dL, High >219 mg/dL, Very high Secondary prevention optimal non HDL Cholesterol levels are recommended to be <100 mg/dL Performed By: #### 5 7021-8 #### [facility] CLIA [id number] [address] [place] [address] [place] T CHOL/HDL RATIO NF 2.56 mg/dL Normal <5.10 [facility] Comment on above: Order Comment: Fan meade Type: BLOOD SPECIMEN Order[facility] Facility[facility] Address: [address] [place] [address] Performed By: #### 5 7021-8 #### [facility] CLIA [id number] [address] [place] [address] [place] TRIGLYCERIDES, NF 107 mg/dL Normal <150 [facility] Comment on above: Order Comment: Fan meade Type: BLOOD SPECIMEN Ordering Facility[facility] Address: [address] [place] [address] Result Comment: <150 mg/dL, Normal 150-199 mg/dL, Borderline high 200-499 mg/dL, High >499 mg/dL, Very high Performed By: #### 5 7021-8 #### [facility] CLIA [id number] [address] [place] [address] [place] VLDL CHOLESTEROL, NF 21 mg/dL Normal <30 [facility] Comment on above: Order Comment: Fan meade Type: BLOOD SPECIMEN Ordering Facility: [facility] Address: [address] [place] [address] Performed By: #### 5 7021-8 #### [facility] CLIA [id number] [address] [place] [address] [place] Home Health Progress Noteon 12-09-2021 Home Health Progress Note Follow up call placed to patient regarding HHC. Spoke with Yusuf regarding services. Patient states no services needed and hung up on caller. Will cancel referral to [facility]. Normal [facility] BASICMETAon 12-07-2021 GFR AA 45 Normal [facility] Comment on above: Result Comment: Afri can Cymraes GFR Calc Medical judgement is necessary to [...] for drug dosing. Performed By: #### C D:[id number], 2841890, 247536, 299955, 023695, 940392 #### [facility] [address] [place] [address] Information Technology Analyst: Robert Ybarra MD Glomerular Filtration Rate 37 mL/min/1.73m? Normal [facility] Comment on above: Result Comment: [...] for drug dosing. Performed By: #### C D:[id number], 3273649, 100535, 535585, 978474, 307297 #### [facility] [address] [place] [address] Information Technology Analyst: Robert Ybarra MD Osmolality [Osmolality] 287 mosm/kg Normal 275-295 [facility] Comment on above: Performed By: #### C D:[id number], 3069657, 848604, 189389, 249581, 656188 #### [facility] [address] [place] [address] Information Technology Analyst: Robert Ybarra MD Urea nitrogen/Creatinine [Mass ratio] 19.1 mg/mg Normal [facility] Comment on above: Performed By: #### C D:[id number], 9966091, 286783, 903804, 789227, 422048 #### [facility] [address] [place] [address] Information Technology Analyst: Robert Ybarra MD Calcium [Mass/Vol] 9.7 mg/dL Normal 8.5-10.5 [facility] Comment on above: Performed By: #### C D:[id number], 3259077, 878574, 565902, 281532, 340623 #### [facility] [address] [place] [address] Information Technology Analyst: Robert Ybarra MD Chloride [Moles/Vol] 107 mmol/L Normal 100-109 [facility] Comment on above: Performed By: #### C D:[id number], 5915375, 242548, 221365, 985609, 617086 #### [facility] [address] [place] [address] Information Technology Analyst: Robert Ybarra MD CO2 [Moles/Vol] 25.9 mmol/L Normal 21.0-32.0 [facility] Comment on above: Performed By: #### C D:[id number], 2682070, 440627, 663083, 861535, 676993 #### [facility] [address] [place] [address] Information Technology Analyst: Robert Ybarra MD Creatinine [Mass/Vol] 1.4 mg/dL High 0.6-1.0 [facility] Comment on above: Performed By: #### C D:[id number], 7700205, 720575, 992931, 896323, 860848 #### [facility] [address] [place] [address] Information Technology Analyst: Robert Ybarra MD Glucose [Mass/Vol] 177 mg/dL High 72-100 [facility] Comment on above: Result Comment: Shireen puncture should occur prior to sulfasalazine administration due to the potential for falsely depressed results. Venipuncture should occur prior to sulfapyridine administration due to the potential falsely elevated results. Baseline assay values before administration of sulfasalazine and sulfapyridine therapy would not be affected. Performed By: #### C D:[id number], 7298145, 782281, 685602, 698177, 503885 #### [facility] [address] [place] [address] Information Technology Analyst: Robert Ybarra MD Potassium [Moles/Vol] 4.7 mmol/L Normal 3.5-5.1 [facility] Comment on above: Performed By: #### C D:[id number], 2261863, 325527, 936836, 663876, 790898 #### [facility] [address] [place] [address] Information Technology Analyst: Robert Ybarra MD Sodium [Moles/Vol] 139 mmol/L Normal 135-145 [facility] Comment on above: Performed By: #### C D:[id number], 1842347, 842142, 008714, 898563, 528251 #### [facility] [address] [place] [address] Information Technology Analyst: Robert Ybarra MD Urea nitrogen [Mass/Vol] 26 mg/dL High 10-20 [facility] Comment on above: Performed By: #### C D:[id number], 7805317, 533094, 420741, 134320, 516750 #### [facility] [address] [place] [address] Information Technology Analyst: Robert Ybarra MD CPKon 12-07-2021 CPK 1185 unit/L Critically abnormal 26-192 [facility] Comment on above: Result Comment: Crit ical Result(s) called at: 13:24:37 on 12/07/2021 by: MIRNA rechecked, RBR to: Dr. Beckford Performed By: #### C D:[id number], 7608182, 771923, 849217, 569250, 877170 #### [facility] [address] [place] [address] Information Technology Analyst: Robert Ybarra MD Utilization Review Noteon Utilization Review Note Inpatient recomm ended. Inpatient ordered. Patient with #1 acute hypothermia. YUSUF MEDINA 12/03/21 [id number] CCE 200 INPT UPDATED [facility]ER TO [facility] Verified admit thru the portal [id number] PATIENT ALREADY DISCHARGED AT THE TIME OF THIS REVIEW. Faxed Normal [facility] Discharge Educationon 2021 Discharge Education Patient Education Material Normal [facility] Inpatient Patient Summaryon 12-05-2021 Inpatient Patient Summary [facility] Discharge Instructions [address] [place] [address] \\.br\\(Patient Copy)\\.br\\ \\.br\\ \\.br\\Name: YUSUF MEDINA : 1935 \\.br\\Diagnosis: Abrasion of right elbow; Benign essential hypertension; Chronic kidney disease (CKD), stage III (moderate); Contusion of right thigh; Diabetes mellitus type II, controlled; acute Hypothermia \\.br\\ \\.br\\Allergies: No Known Allergies\\.br\\ \\.br\\Registration Date: 12/03/21\\.br\\\\.br\\\\.br \\ \\.br\\ Current Date Time: 12/05/2021 07:42:18 \\.br\\ \\.br\\Address: [address] [place] [address] \\.br\\ \\.br\\ \\.br\\Primary Care Provider: \\.br\\Name: RADHA CRAMER\\.br\\ \\.br\\ \\.br\\Thank you for choosing [facility] for your care. You are very important to us. Our goal is to demonstrate our high quality medical care and provide you with a very good patient experience.\\.br\\ You may receive a survey about our service. Please take the time to complete the survey and return it so we can continue to enhance our service.\\.br\\ Thank you again for allowing [facility] to care for your medical needs. If [...] in more information on smoking cessation, contact [facility]?s [facility]ess[facility] [phone]\\.br\\ \\.br\\ DIET Eat a variety of nutritious [...] Connection / Physician Referral and Health Information [phone].\\.br\\Hear t and [facility] [place] 5-933-NZY-BEAT ( )\\.br\\S easons of a Woman?s Life [phone] \\.br\\ \\.br\\ Call immediately if you or [...] discomfort: M (more content not included)... Normal [facility] AUTO DIFFon 12-04-2021 Baso Count 0.05 x1000 Normal 0.00-0.20 [facility] Comment on above: Performed By: #### 1 , 805168, 511012, 9555144 ####[facility] [id number] [place] [address] Medical Director: Robert Ybarra MD Basos % 0.5 % Normal [facility] Comment on above: Performed By: #### 1 , 259181, 058305, 4338480 ####[facility] [id number] [place] [address] Medical Director: Robert Ybarra MD Eos Count 0.01 x1000 Normal 0.00-0.50 [facility] Comment on above: Performed By: #### 1 , 424201, 550739, 2770537 ####[facility] [id number] [place] [address] Medical Director: Robert Ybarra MD Eosinophils/100 WBC (Bld) 0.1 % Normal [facility] Comment on above: Performed By: #### 1 , 940570, 626908, 0692443 ####[facility] [id number] [place] [address] Medical Director: Robert Ybarra MD Lymph Count 1.19 x1000 Low 1.20-4.80 [facility] Comment on above: Performed By: #### 1 , 773989, 163808, 7103269 ####[facility] [id number] [place] [address] Medical Director: Robert Ybarra MD Lymphocytes/100 WBC (Bld) 11.8 % Normal [facility] Comment on above: Performed By: #### 1 , 905888, 029667, 3572343 ####[facility] [id number] [place] [address] Medical Director: Robert Ybarra MD Saunders Count 0.57 x1000 Normal 0.10-1.00 [facility] [facility] Comment on above: Performed By: #### 1 , 253662, 740205, 2202603 ####[facility] [address] [place] [address] Medical Director: Robert Ybarra MD Monocytes/100 WBC (Bld) 5.6 % Normal [facility] Comment on above: Performed By: #### 1 , 666521, 021318, 7651838 ####[facility] [address] [place] [address] Medical Director: Robert Ybarra MD Neutrophil Count (ANC) 8.28 x1000 Normal 1.40-8.80 So [facility] Comment on above: Performed By: #### 1 , 263096, 492119, 2460881 ####[facility] [address] [place] [address] Medical Director: Robert Ybarra MD Neutrophils/100 WBC (Bld) 82.0 % Normal [facility] Comment on above: Performed By: #### 1 , 397810, 151278, 5659248 ####[facility] [address] [place] [address] Medical Director: Robert Ybarra MD B12 FOLATEon 12-04-2021 Cobalamin (Vitamin B12) [Mass/Vol] 455 pg/mL Normal 193-986 [facility] Comment on above: Performed By: #### 1 , 660603, 744516, 9082114 ####[facility] [address] [place], [place] [id number]) [phone] Director: Robert Ybarra MD FOLATE 14.3 ng/mL Normal 3.1-17.5 [facility] Comment on above: Performed By: #### 1 67673, 544788, 316054, 8195476 ####[facility] [address] [place], [place] [id number]) [phone] Director: Robert Ybarra MD BLD GASon 12-04-2021 MAGGIE TEST Normal [facility] Comment on above: Performed By: #### C D:[id number], 1070784, 053308, 819008, 192519, 585066 #### [facility] Services [address] [place] [address] Information Technology Analyst: Robert Ybarra MD Base Excess -5.0 mmol/L Normal [facility] Comment on above: Performed By: #### C D:[id number], 7406012, 919751, 499511, 987686, 547384 #### [facility] Services [address] [place] [address] Information Technology Analyst: Robert Ybarra MD ePAP 0 cmH20 [facility] Comment on above: Performed By: #### C D:[id number], 6675784, 268536, 303186, 620952, 586608 #### [facility] Services [address] [place] [address] Information Technology Analyst: Robert Ybarra MD FIO2 36 % Normal [facility] Comment on above: Performed By: #### C D:[id number], 1585750, 520351, 436960, 017712, 366549 #### [facility] Services [address] [place] [address] Information Technology Analyst: Robert Ybarra MD HCO3 (Bld) [Moles/Vol] 19.8 mmol/L Low 22.0-26.0 [facility] Comment on above: Performed By: #### C D:[id number], 5114369, 620113, 662320, 885123, 978978 #### [facility] Services [address] [place] [address] Information Technology Analyst: Robert Ybarra MD iPAP 0 cmH20 [facility] Comment on above: Performed By: #### C D:[id number], 0540848, 163695, 123655, 805447, 175660 #### [facility] Services [address] [place] [address] Information Technology Analyst: Robert Ybarra MD O2 L/M 4.0 [facility] Comment on above: Performed By: #### C D:[id number], 1117358, 788462, 686316, 166385, 910726 #### [facility] Services [address] [place] [address] Information Technology Analyst: Robert Ybarra MD Oxygen (Bld) [Partial pressure] 82.0 mm[Hg] Normal 80.0-100.0 [facility] Comment on above: Performed By: #### C D:[id number], 9179794, 846564, 144464, 926728, 371426 #### [facility] Services [address] [place] [address] Information Technology Analyst: Robert Ybarra MD Oxygen saturation in Blood 94.1 % [facility] Comment on above: Performed By: #### C D:[id number], 0856380, 636486, 906543, 720954, 681710 #### [facility] Services [address] [place] [address] Information Technology Analyst: Robert Ybarra MD PCO2 35.6 mmHg Normal 35.0-45.0 [facility] Comment on above: Performed By: #### C D:[id number], 4431308, 127006, 796068, 129803, 963768 #### [facility] Services [address] [place] [address] Information Technology Analyst: Robert Ybarra MD PEEP 0.0 cmH20 Normal [facility] Comment on above: Performed By: #### C D:[id number], 7421229, 070971, 690767, 179930, 745875 #### [facility] Services [address] [place] [address] Information Technology Analyst: Robert Ybarra MD pH (Bld) 7.363 [pH] Normal 7.350-7.450 [facility] Comment on above: Performed By: #### C D:752013134, 9792946, 706970, 584760, 116904, 065665 #### [facility] Services [address] [place] [address] Information Technology Analyst: Robert Ybarra MD PO2/FiO2 Ratio 228 Low 300-500 [facility] Comment on above: Performed By: #### C D:642511167, 9634656, 633771, 979533, 247088, 991157 #### [facility] Services [address] [place] [address] Information Technology Analyst: Robert Ybarra MD Pressure Support. 0 cmH20 Normal [facility] Comment on above: Performed By: #### C D:541604467, 6976956, 638525, 067189, 641341, 362811 #### [facility] Services [address] [place] [address] Information Technology Analyst: Robert Ybarra MD RATE 0 bpm Normal [facility] Comment on above: Performed By: #### C D:480287927, 4289843, 264953, 327796, 926382, 780999 #### [facility] [address] [place] [address] Information Technology Analyst: Robert Ybarra MD TEMP 37.0 degC Normal <=37.0 [facility] Comment on above: Performed By: #### C D:071259136, 7697738, 947380, 136253, 895716, 500582 #### [facility] Services [address] [place] [address] Information Technology Analyst: Robert Ybarra MD Type of Specimen RB Art Normal [facility] Comment on above: Result Comment: RR A RT = Right Artery RB ART = Right Brachial Artery LR ART = Left Radial Artery LB ART = Left Brachial Artery RF ART = Right Femoral Artery LF ART = Left Femoral Artery Performed By: #### C D:167450616, 5953995, 038237, 404229, 774409, 436561 #### [facility] [address] [place] [address] Information Technology Analyst: Robert Ybarra MD Ventilation Nasalcan [facility] Comment on above: Performed By: #### C D:[id number], 8084420, 717245, 215666, 408735, 053914 #### [facility] Services [address] [place], [place] [address] Information Technology Analyst: Robert Ybarra MD VT 00 mL [facility] Comment on above: Performed By: #### C D:838783971, 0757925, 528696, 053260, 202959, 832111 #### [facility] Services [address] [place], [place] [address] Information Technology Analyst: Robert Ybarra MD CBCNDon 12-04-2021 Erythrocyte distribution width (RBC) [Ratio] 14.2 % Normal 11.5-14.5 [facility] Comment on above: Performed By: #### C D:058945887, 4174095, 769281, 318975, 056420, 008679 #### [facility] [address] [place] [address] Information Technology Analyst: Robert Ybarra MD Hematocrit (Bld) [Volume fraction] 30.1 % Low 36.0-46.0 [facility] Comment on above: Performed By: #### C D:288472907, 3627338, 673257, 731158, 274608, 653802 #### [facility] [address] [place] [address] Information Technology Analyst: Robert Ybarra MD Hemoglobin (Bld) [Mass/Vol] 10.1 g/dL Low 12.0-16.0 [facility] Comment on above: Performed By: #### C D:138042470, 4186768, 661948, 735519, 367529, 848407 #### [facility] [address] [place], [place] [address] Information Technology Analyst: Robert Ybarra MD Instr WBC ND 13.8 Normal [facility] Comment on above: Performed By: #### C D:509155188, 7485995, 405029, 420426, 067113, 764201 #### [facility] [address] [place], [place] [address] Information Technology Analyst: Robert Ybarra MD MCH (RBC) [Entitic mass] 29.8 pg Normal 27.0-34.0 [facility] Comment on above: Performed By: #### C D:924260226, 8050666, 286356, 319763, 337254, 571198 #### [facility] [address] [place], [place] [address] Information Technology Analyst: Robert Ybarra MD MCHC (RBC) [Mass/Vol] 33.6 g/dL Normal 32.0-37.0 [facility] Comment on above: Performed By: #### C D:940987395, 1807237, 036342, 906518, 532206, 878589 #### [facility] [address] [place] [address] 7598730 Information Technology Analyst: Robert Ybarra MD MCV (RBC) [Entitic vol] 88.9 fL Normal 80.0-100.0 [facility] Comment on above: Performed By: #### C D:739433473, 9586108, 628559, 396763, 854695, 979471 #### [facility] [address] [place] [address] Information Technology Analyst: Robert Ybarra MD Platelet 294 x1000 Normal 150-450 [facility] Comment on above: Performed By: #### C D:795884872, 5702948, 016245, 701228, 645460, 291671 #### [facility] Services [address] [place] [address] Information Technology Analyst: Robert Ybarra MD Platelet mean volume (Bld) [Entitic vol] 6.9 fL Low 7.4-10.4 [facility] Comment on above: Performed By: #### C D:443856523, 3169042, 916397, 231160, 493187, 175252 #### [facility] [address] [place] [address] Information Technology Analyst: Robert Ybarra MD RBC 3.38 x10 Low 4.20-5.40 [facility] Comment on above: Result Comment: Note : RBC morphology is normal unless otherwise stated. Evaluation performed only if differential is requested. Performed By: #### C D:996041559, 0737968, 349374, 988309, 335924, 485010 #### [facility] [address] [place] [address] Information Technology Analyst: Robert Ybarra MD WBC 13.8 x10 High 4.5-11.0 [facility] Comment on above: Performed By: #### C D:145192161, 0688143, 232348, 912371, 969769, 370526 #### [facility] [address] [place] [address] Information Technology Analyst: Robert Ybarra MD COMPMETAon 12-04-2021 Albumin [Mass/Vol] 2.9 g/dL Low 3.4-5.0 [facility] Comment on above: Performed By: #### C D:313472069, 9324173, 196736, 960770, 838240, 714220 #### [facility] [address] [place] [address] Information Technology Analyst: Robert Ybarra MD Albumin/Globulin [Mass ratio] 1.2 {ratio} Normal [facility] Comment on above: Performed By: #### C D:763045189, 1318085, 143440, 158976, 005591, 690856 #### [facility] [address] [place] [address] Information Technology Analyst: Robert Ybarra MD Alk Phos 58 unit/L Normal 45-117 [facility] Comment on above: Performed By: #### C D:639552291, 1770364, 440065, 004681, 335859, 229532 #### [facility] [address] [place] [address] Information Technology Analyst: Robert Ybarra MD Bilirubin [Mass/Vol] 0.25 mg/dL Normal 0.20-1.00 [facility] Comment on above: Result Comment: Use of this assay is not recommended for patients undergoing treatment with eltrombopag due to the potential for falsely elevated results. Performed By: #### C D:552573839, 4408299, 197249, 848380, 257199, 369010 #### [facility] [address] [place] [address] Information Technology Analyst: Rboert Ybarra MD Calcium [Mass/Vol] 8.5 mg/dL Normal 8.5-10.5 [facility] Comment on above: Performed By: #### C D:761987312, 4959502, 881696, 355231, 505023, 840049 #### [facility] [address] [place] [address] Information Technology Analyst: Robert Ybarra MD Chloride [Moles/Vol] 106 mmol/L Normal 100-109 [facility] Comment on above: Performed By: #### C D:096250844, 1573505, 432089, 529555, 156657, 576787 #### [facility] [address] [place] [address] Information Technology Analyst: Robert Ybarra MD CO2 [Moles/Vol] 22.7 mmol/L Normal 21.0-32.0 [facility] Comment on above: Performed By: #### C D:094715076, 7922799, 753742, 055119, 545342, 803498 #### [facility] [address] [place] [address] Information Technology Analyst: Robert Ybarra MD Creatinine [Mass/Vol] 1.3 mg/dL High 0.6-1.0 [facility] Comment on above: Performed By: #### C D:513385603, 2046480, 057475, 532870, 111376, 147572 #### [facility] [address] [place] [address] Information Technology Analyst: Robert Ybarra MD GFR AA 46 Normal [facility] Comment on above: Result Comment: Afri can Cymraes GFR Calc Medical judgement is necessary to [...] for drug dosing. Performed By: #### C D:[id number], 9641317, 019747, 990747, 729466, 952158 #### [facility] [address] [place] [address] Information Technology Analyst: Robert Ybarra MD Globulin (S) [Mass/Vol] 2.4 g/dL Normal [facility] Comment on above: Performed By: #### C D:397505586, 4012036, 512944, 635424, 640872, 968949 #### [facility] [address] [place] [address] Information Technology Analyst: Robert Ybarra MD Glomerular Filtration Rate 38 mL/min/1.73m? Normal [facility] Comment on above: Result Comment: [...] for drug dosing. Performed By: #### C D:416103128, 1192471, 243498, 272494, 497528, 256963 #### [facility] [address] [place] [address] Information Technology Analyst: Robert Ybarra MD Glucose [Mass/Vol] 186 mg/dL High 72-100 [facility] Comment on above: Result Comment: Shireen puncture should occur prior to sulfasalazine administration due to the potential for falsely depressed results. Venipuncture should occur prior to sulfapyridine administration due to the potential falsely elevated results. Baseline assay values before administration of sulfasalazine and sulfapyridine therapy would not be affected. Performed By: #### C D:[id number], 7040140, 966241, 514788, 309700, 232560 #### [facility] [address] [place] [address] Information Technology Analyst: Robert Ybarra MD GOT 123 unit/L High 15-37 [facility] Comment on above: Result Comment: revi ewed Venipuncture should occur prior to sulfasalazine and/or sulfapyridine administration due to the potential for falsely depressed results. Baseline assay values before administration of sulfasalazine and sulfapyridine therapy would not be affected. Performed By: #### C D:[id number], 7011939, 038078, 736553, 704001, 600447 #### [facility] [address] [place] [address] Information Technology Analyst: Robert Ybarra MD GPT 92 unit/L High 13-56 [facility] Comment on above: Result Comment: revi ewed Venipuncture should occur prior to sulfasalazine and/or sulfapyridine administration due to the potential for falsely depressed results. Baseline assay values before administration of sulfasalazine and sulfapyridine therapy would not be affected. Performed By: #### C D:[id number], 5077029, 174708, 162880, 485189, 182191 #### [facility] [address] [place] [address] Information Technology Analyst: Robert Ybarra MD Osmolality [Osmolality] 289 mosm/kg Normal 275-295 [facility] Comment on above: Performed By: #### C D:[id number], 3848667, 239575, 765049, 245494, 826772 #### [facility] [address] [place] [address] Information Technology Analyst: Robert Ybarra MD Potassium [Moles/Vol] 4.3 mmol/L Normal 3.5-5.1 [facility] Comment on above: Performed By: #### C D:447908594, 3592082, 257671, 501004, 982104, 119527 #### [facility] [address] [place] [address] Information Technology Analyst: Robert Ybarra MD Protein [Mass/Vol] 5.3 g/dL Low 6.0-8.5 [facility] Comment on above: Performed By: #### C D:273623611, 1113347, 180381, 030506, 433211, 596353 #### [facility] [address] [place] [address] Information Technology Analyst: Robert Ybarra MD Sodium [Moles/Vol] 137 mmol/L Normal 135-145 [facility] Comment on above: Performed By: #### C D:[id number], 6372680, 412671, 385402, 515901, 620639 #### [facility] [address] [place] [address] 5623330 Information Technology Analyst: Robert Ybarra MD Urea nitrogen [Mass/Vol] 42 mg/dL High 10-20 [facility] Comment on above: Performed By: #### C D:[id number], 1634893, 485912, 485977, 234053, 216148 #### [facility] [address] [place] [address] Information Technology Analyst: Robert Ybarra MD Urea nitrogen/Creatinine [Mass ratio] 31.8 mg/mg Normal [facility] Comment on above: Performed By: #### C D:955443143, 0839362, 212732, 189426, 780076, 139524 #### [facility] [address] [place] [address] 8668630 Information Technology Analyst: Robert Ybarra MD CPKon 12-04-2021 CPK 3684 unit/L Critically abnormal [address] Comment on above: Result Comment: Crit ical Result(s) called at: 17:08:41 on 12/04/2021 by: Kp dennison, RBR to: TC Performed By: #### C D:[id number], 4317394, 333488, 070770, 085462, 349537 #### [facility] [address] [place] [address] Information Technology Analyst: Robert Ybarra MD CPK 2217 unit/L Critically abnormal [address] Comment on above: Result Comment: Crit ical Result(s) called at: 04:10:50 on 12/04/2021 by: Byron dennison, RBR to: SF&XA&&XA&reviewed Performed By: #### C D:[id number], 7116990, 389281, 675814, 018953, 847655 #### [facility] [address] [place] [address] Information Technology Analyst: Robert Ybarra MD CPK 926 unit/L High 26-192 [facility] Comment on above: Performed By: #### 1 87759 ####[facility] [address] [place] [address] Medical Director: Robert Ybarra MD Consult Reporton 12-04-2021 Consult Report Patient: YUSUF MEDINA Age: 85 years Sex: Female : 1935 Associated Diagnoses: None Author: YENNY HODGE, [facility] Consult Note IMPRESSION: Mechanical fall. Rhabdomyolysis Type II [place] elevated troponin without ACS Afib with slow [...] MG TAB 650 mg 2 tabs, ORAL, [id number] ACETAMINOPHEN 325 MG TAB 650 mg 2 tabs, ORAL, [id number] DEXTROSE 50% 50ML SYRINGE/VIAL 12.5 g 25 mL, IV Push, PRN DEXTROSE 50% 50ML SYRINGE/VIAL 25 g 50 mL, IV Push, PRN GLUCAGON 1MG INJ 1 mg, IM, PRN GLUCOSE GEL 15GM/42ML 15 g 1 packets, ORAL, PRN GLUCOSE GEL 15GM/42ML 30 g 2 packets, ORAL, PRN ONDANSETRON=ZOFRAN INJ 4 mg 2 mL, IV Push, [id number] Allergies (1) Active Reaction No Known Allergies [...] available. BNP No qualifying data available. Normal [facility] Consult Report Patient: YUSUF MEDINA Age: 85 years Sex: Female : 1935 Associated Diagnoses: None Author: ERIC DENTON MD History of Present Illness 85-year-old lady. Admitted 12/03/2021 Fell. Also confused. History was limited also because of language barrier. Apparently lives alone. 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 She fell. Unknown why she fell [...] is able to speak little bit of Salvadorean. Her son lives in the [facility]. She lives alone. 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 She spoke in broken Salvadorean. Good eye contact. Followed commands. She knew [...] Glucose Random (more content not included)... Normal [facility] Consult Report Patient: YUSUF MEDINA [...] Tylenol: 650 mg = 2 tabs, ORAL, [id number], PRN: Mild Pain Tylenol: 650 mg = 2 tabs, ORAL, [id number], PRN: Temperature Above 102 Zofran: 4 mg = 2 mL, IV Push, [id number], PRN: Nausea/Vomiting glucagon: 1 mg, IM, PRN, [...] MG TAB 650 mg 2 tabs, ORAL, [id number] ACETAMINOPHEN 325 MG TAB 650 mg 2 tabs, ORAL, [id number] DEXTROSE 50% 50ML SYRINGE/VIAL 12.5 g 25 mL, IV Push, PRN DEXTROSE 50% 50ML SYRINGE/VIAL 25 g 50 mL, IV Push, PRN GLUCAGON 1MG INJ 1 mg, IM, PRN GLUCOSE GEL 15GM/42ML 15 g 1 packets, ORAL, PRN GLUCOSE GEL 15GM/42ML 30 g 2 packets, ORAL, PRN ONDANSETRON=ZOFRAN INJ 4 mg 2 mL, IV Push, [id number] PERFLUTREN 2 ML INJ 2 ML, IV [...] No activ (more content not included)... Normal [facility] ED Discharge Educationon ED Discharge Education Normal So [facility] ED Patient Summaryon 022 ED Patient Summary [facility] Emergency Department Discharge Instructions [address] [place] [address] \\.br\\(Patient Copy)\\.br\\ \\.br\\Name: YUSUF MEDINA : 1935 \\.br\\Allergies: No Known Allergies\\.br\\Diagnosi s: Diagnoses This Visit\\.br\\ Abrasion of right elbow (S50.311A)\\.br\\ acute Hypothermia (T68.XXXA)\\.br\\ Contusion of right thigh (S70.11XA)\\.br\\ Fall ([id number])\\.br\\ Hypothermia due to exposure ([id number])\\.br\\\\ .br\\\\.br\\ \\.br\\ Visit Date: 12/03/2021 19:54:53 \\.br\\ Current Date Time: 12/04/2021 01:06:15 \\.br\\Address: [address] [place] [address] \\.br\\ \\.br\\ \\.br\\Primary Care Provider: \\.br\\Name: CRAMER PRISCILLATRUDY Gordon\\.br\\ \\.br\\ \\.br\\Emergency Department Care Providers: \\.br\\ Primary Physician: IDA ALMODOVAR MD \\.br\\ \\.br\\ \\.br\\\\.br\\Thank you for choosing [facility] for your emergency care. You are very important to us. Our goal is to demonstrate our high quality medical care, and provide you with a very good patient experience.\\.br\\\\.br\\Y ou may receive a survey about our service. Please take the time to complete the survey and return it so we can continue to enhance our service.\\.br\\\\.br\\Than k you again for allowing the [facility] Emergency Department to care for your medical needs. If you have questions about your care or follow up information please contact us at [phone].\\.br\\\\.br \\ Follow-Up Instructions\\.br\\ \\.b r\\YUSUF MEDINA has been given these follow-up instructions:\\.br\\\\.br \\Patient Education Materials\\.br\\ \\.br\\P YUSUF MARCIAL has been given the following patient education materials:\\.br\\\\.br\\ \\.br\\BEFORE YOU LEAVE\\.br\\\\.br\\Set up your [facility] [employer] account!\\.br\\ \\.br\\[employer] is a secure, online health management tool that connects you to portions of your hospital-based electronic medical record, allowing you to see test results, manage appointments, access discharge care instructions and much more.\\.br\\ \\.br\\You can access [employer] from a computer, tablet or smartphone. Enrollment/registratio n is required. If you do not have a [employer] account, please provide us with an email address before you leave so that we may set up an account for you.\\.br\\ \\.br\\New to [employer]!\\.br\\You may now securely connect some of the health management apps you use (e.g., fitness trackers, dietary trackers, etc.) to your health record in [facility] [employer]. This new feature provides expanded access to your health and wellness data, which will help you and your care team make informed decisions about your health care. \\.br\\If you are interested in using a health management gordo not currently connected to [employer], contact a Private Client Advisor at [phone] or [email or web address]. We will determine if the gordo meets the technical requirements to connect to [facility] [employer] and assure the security of your private [...] health or substance abuse issue, please call [facility] at [phone] or the National Suicide Prevention Lifeline at .\\.br\\ \\.br\\\\.br\\ \\.br\\ \\.br\\CAROL Almazan VIORICA, have received the follow-up provider(s) list, medication information and patient education materials/instructions and have verbalized understanding.\\.br\\ \\.br\\ \\.br\\Patient Signature \\.br\\Kalen e \\.br\\Leif e \\.br\\ \\.br\\ \\.br\\ Provider Signature \\.br\\Kalen e \\.br\\Leif e Normal [facility] ED Physician Reporton 2021 ED [...] 20:47:00, rate 37, No ST-T changes, normal ND & QRS intervals, EP Interp, The Rhythm [...] \\.br\\ Lymph % 24.2 % NA \\.br\\ Saunders % 3.7 % NA \\.br\\ Neutrophil % 70.8 % NA \\.br\\ Eosin % 0.9 % NA \\.br\\ Basos % 0.4 % NA \\.br\\ Lymph Count 5.46 x1000 HI \\.br\\ Saunders Count 0.84 x1000 NORMAL \\.br\\ Neutrophil Count [...] mg/dL H (more content not included)... Normal [facility] ED Progress Noteon ED Progress Note 12/03/211954 PT TO ROOM 12 ARRIVED BY SQUAD TRAUMA CALLED FROM FIELD, SEE PAPER CHART FOR INFO. Normal [facility] HEMOon 12-04-2021 DIFF? No Normal [facility] Comment on above: Performed By: #### 1 32221, 874463, 040612, 9522275 ####[facility] [address] [place], [place] [id number]) [phone] Director: Robert Ybarra MD Erythrocyte distribution width (RBC) [Ratio] 14.7 % High 11.5-14.5 [facility] Comment on above: Performed By: #### 1 70893, 929721, 786310, 9802233 ####[facility] [address] [place], [place] [address]) [phone] Director: Robert Ybarra MD Hematocrit (Bld) [Volume fraction] 30.7 % Low 36.0-46.0 [facility] Comment on above: Performed By: #### 1 05682, 145212, 712662, 9058115 ####[facility] [address] [place], [place] [address]) [phone] Director: Robert Ybarra MD Hemoglobin (Bld) [Mass/Vol] 10.4 g/dL Low 12.0-16.0 [facility] Comment on above: Performed By: #### 1 81664, 765747, 612404, 4575663 ####[facility] [address] [place] [address] Medical Director: Robert Ybarra MD Instr WBC 10.1 [facility] Comment on above: Performed By: #### 1 66270, 999626, 866235, 4721763 ####[facility] [address] [place] [address] Medical Director: Robert Ybarra MD MCH (RBC) [Entitic mass] 30.2 pg Normal 27.0-34.0 [facility] Comment on above: Performed By: #### 1 , 915231, 602948, 1350274 ####[facility] [address] [place] [address] Medical Director: Robert Ybarra MD MCHC (RBC) [Mass/Vol] 33.9 g/dL Normal 32.0-37.0 [facility] [place] [facility] Comment on above: Performed By: #### 1 , 319907, 924220, 4039533 ####[facility] [address] [place] [address] Medical Director: Robert Ybarra MD MCV (RBC) [Entitic vol] 89.3 fL Normal 80.0-100.0 [facility] Comment on above: Performed By: #### 1 , 368995, 902626, 1975429 ####[facility] [address] [place], [place] [address]) [phone] Director: Robert Ybarra MD Nucleated RBC 0 /100WBC Normal [facility] Comment on above: Performed By: #### 1 , 587680, 082562, 1110455 ####[facility] [address] [place], [place] [address]) [phone] Director: Robert Ybarra MD Platelet 310 x1000 Normal 150-450 [facility] Comment on above: Performed By: #### 1 , 170464, 686268, 0091595 ####[facility] [address] [place] [address] Medical Director: Robert Ybarra MD Platelet mean volume (Bld) [Entitic vol] 7.2 fL Low 7.4-10.4 [facility] Comment on above: Performed By: #### 1 , 346540, 702233, 7613699 ####[facility] [address] [place], [place] [address]) [phone] Director: Robert Ybarra MD RBC 3.44 x10 Low 4.20-5.40 [facility] Comment on above: Result Comment: Note : RBC morphology is normal unless otherwise stated. Evaluation performed only if differential is requested. Performed By: #### 1 67933, 330413, 098994, 4963204 ####[facility] [address] [place], [place] [address]) [phone] Director: Robert Ybarra MD WBC 10.1 x10 Normal 4.5-11.0 [facility] Comment on above: Performed By: #### 1 42778, 305841, 985620, 7434079 ####[facility] [address] [place], [place] [address]) [phone] Director: Robert Ybarra MD HGB A1Con 12-04-2021 HbA1c (Bld) [Mass fraction] 6.7 % Normal [facility] Comment on above: Result Comment: Refe rence Range: Diabetic Greater than or equal to 6.5 % Prediabetic 5.7?6.4 % Normal Less than 5.7 % Performed By: #### 1 34094 ####[facility] [address] [place] [address] Medical Director: Robert Ybarra MD IRON GROUPon 12-04-2021 Iron [Mass/Vol] 36 ug/dL Low 40-170 [facility] Comment on above: Result Comment: Resu lts may be inaccurate if performed within 14 days of IV iron dextran administration. Performed By: #### 1 29841, 998706, 292944, 1050104 ####[facility] [address] [place] [address] Medical Director: Robert Ybarra MD Saturation 9.8 % Low 20.0-50.0 [facility] Comment on above: Performed By: #### 1 71079, 088687, 282206, 6382902 ####[facility] [address] [place] [address] Medical Director: Robert Ybarra MD TIBC 367 ug/dl Normal 250-450 [facility] Comment on above: Result Comment: Resu lts may be inaccurate if performed within 14 days of IV iron dextran administration. Performed By: #### 1 92254, 531914, 427410, 9954354 ####[facility] [address] [place] [address] Medical Director: Robert Ybarra MD MG LEVELon 12-04-2021 Magnesium [Mass/Vol] 1.6 mg/dL Normal 1.6-2.6 [facility] Comment on above: Performed By: #### C D:[id number], 8449538, 064266, 660421, 695441, 033260 #### [facility] Services [address] [place] [address] Information Technology Analyst: Robert Ybarra MD Nursing Clinical Noteon 11-15 [...] at all times. Hourly rounding completed. Normal [facility] Nursing Clinical Note got report [...] 37.5, bear hugger is still on. Normal [facility] POC Glucoseon 12-04-2021 Glucose [Mass/Vol] 152 mg/dL High 72-100 [facility] Comment on above: Performed By: #### C D:[id number], 2002099, 661605, 728989, 676492, 380415 #### [facility] [address] [place] [address] Information Technology Analyst: Robert Ybarra MD Glucose [Mass/Vol] 177 mg/dL High 72-100 [facility] Comment on above: Performed By: #### C D:[id number], 4668162, 837879, 626217, 269752, 487194 #### [facility] [address] [place] [address] Information Technology Analyst: Robert Ybarra MD Progress Note-Physicianon Progress Note-Physician Patient: YUSUF MEDINA Age: 85 years Sex: Female : 1935 Associated Diagnoses: None Author: GURWINDERGERTRUDIS MCALLISTER DO Patient with Rhabdo and numbers worsening but she insists on going home. I would ask if she goes home to drink a glass of juice alternating with a glass of water every 3 hrs for 24. Recheck CPK and BMP in 24 hrs. Gertrudis Beckford DO Clinic Physician Normal [facility] Progress Note-Physician Patient: YUSUF MEDINA [...] home. She does not consent to short-term care home facility placement. The family will be available to stay with her until she completely recovered with son arriving from [place] this afternoon. Objective Vital Signs (last 24 [...] Plan Diagnosis Abrasion of right elbow - RHY87-AD S50.311A, Emergency medicine, Medical. Acute Hypothermia - RMG79-TX T68.XXXA, Emergency medicine, Medical. Contusion of right thigh - OPD89-BA S70.11XA, Emergency medicine, Medical. Fall - PNED [id number], Medical. Hypothermia due to exposure - PNED [id number], Medical. She has recovered from hypothermic episode and is now at normal baseline mental status and does not consent to care home facility placement. She will be discharged to home with home health care and family will monitor condition and safety.. Diagnosis Chronic kidney disease (CKD), stage III (moderate) - UCY53-MM N18.30, Medical. The patient's creatinine level is at their normal baseline. There is no significant changes in the patient's GFR. The patient's present medications will be continued. The patient's renal function will be monitored.. Diagnosis Diabetes mellitus type II, controlled - EYO46-XH E11.9, Medical. The patient's blood sugars are adequately controlled. The present medications will be continued, with glucometer checks before meals and at bedtime and sliding scale coverage.. Education and Follow-up: Discharge Planning: Plan to discharge ( To home, Total time that I spent on this patient's discharge is greater than 30 minutes; 32minutes total. ). Normal [facility] T4on 12-04-2021 T4 [Mass/Vol] 9.9 ug/dL Normal 4.5-10.9 [facility] Comment on above: Result Comment: Shireen puncture should occur prior to sulfasalazine administration due to the potential for falsely elevated results. Baseline assay values before administration of sulfasalazine and sulfapyridine therapy would not be affected. Performed By: #### C D:[id number], 6712963, 461706, 538623, 346004, 600256 #### [facility] [address] [place], [place] [address] Information Technology Analyst: Robert Ybarra MD TROPONIN HS 2HRon 12-04-2021 Delta Troponin 2 Hr 39 pg/mL High 0-14 [facility] Comment on above: Result Comment: The term acute myocardial infarction should be used when there is acute myocardial injury with clinical evidence of acute myocardial ischemia and the rise or fall of serial Troponin HS values (delta troponin) greater than or equal to 15 pg/mL with at least one Troponin HS value above the 99th percentile reference range Performed By: #### C D:[id number] #### [facility] [address] [place] [address] Information Technology Analyst: Robert Ybarra MD Troponin HS 2 Hr 105 pg/mL High 3-54 [facility] Comment on above: Performed By: #### C D:[id number] #### [facility] [address] [place], [place] [address] Information Technology Analyst: Robert Ybarra MD TROPONIN HS 6HRon 12-04-2021 Delta Troponin 6 Hr 232 pg/mL High 0-14 [facility] Comment on above: Result Comment: The term acute myocardial infarction should be used when there is acute myocardial injury with clinical evidence of acute myocardial ischemia and the rise or fall of serial Troponin HS values (delta troponin) greater than or equal to 15 pg/mL with at least one Troponin HS value above the 99th percentile reference range Performed By: #### C D:[id number], 1042935, 423965, 179883, 985766, 913220 #### [facility] [address] [place], [place] [address] Information Technology Analyst: Robert Ybarra MD Troponin HS 6 Hr 337 pg/mL Critically abnormal 3-54 [facility] Comment on above: Result Comment: Crit ical Result(s) called at: 04:06:04 on 12/04/2021 by: REKHA Be to: SF Performed By: #### C D:[id number], 4467260, 555796, 360948, 789552, 480260 #### [facility] [address] [place] [address] Information Technology Analyst: Robert Ybarra MD TSHon 12-04-2021 TSH Qn 0.53 m[IU]/L Normal 0.36-3.74 [facility] Comment on above: Result Comment: High levels of serum biotin may interfere with this test. Performed By: #### C D:[id number], 6182993, 517982, 730863, 744614, 718130 #### [facility] [address] [place] [address] Information Technology Analyst: Robert Ybarra MD U DOA WITH FENTANYLon 2021 Amphetamines, U Negative Normal [facility] Comment on above: Result Comment: [...] non-medical purposes. Urine for Drugs of Abuse [place] Levels: Barbiturate 200 ng/ml PCP 25 ng/ml Cocaine 300 ng/ml Opiates 2000 ng/ml Amphetamines 1000 ng/ml Benzodiazepines 200 ng/ml THC 50 ng/ml EXTC 500 ng/ml Performed By: #### C D:[id number] ####[facility] [address] [place] [address] Medical Director: Robert Ybarra MD Barbituates, U Negative Normal [facility] Comment on above: Performed By: #### C D:[id number] ####[facility] [address] [place], [place] [address] Medical Director: Robert Ybarra MD Benzodiazepines, U Negative Normal [facility] Comment on above: Performed By: #### C D:[id number] ####[facility] [address] [place] [address] Medical Director: Robert Ybarra MD Cocaine, U Negative Normal [facility] Comment on above: Performed By: #### C D:[id number] ####[facility] [address]cm[address] [place] [address] Medical Director: Robert Ybarra MD Ecstasy, U Negative Normal [facility] Comment on above: Performed By: #### C D:[id number] ####[facility] [address]mf[address] [place] [address] Medical Director: Robert Ybarra MD Fentanyl, U Negative Normal [facility] Comment on above: Result Comment: [...] be used for non-medical purposes. Urine Fentanyl [place] Level: 1 ng/ml Performed By: #### C D:[id number] ####[facility] [address] [place] [address] Medical Director: Robert Ybarra MD Opiates, Negative [facility] Comment on above: Performed By: #### C D:[id number] ####[facility] [address] [place], [place] [address]) [phone] Director: Robert Ybarra MD PCP, Negative [facility] Comment on above: Performed By: #### C D:[id number] ####[facility] [address] [place] [id number]) [phone] Director: Robert Ybarra MD THC, Negative [facility] Comment on above: Performed By: #### C D:[id number] ####[facility] [address] [place] [address] Medical Director: Robert Ybarra MD UAon 12-04-2021 Appearance, U Hazy [facility] Comment on above: Performed By: #### C D:[id number], 4464726, 709621, 362271, 834280, 554645 #### [facility] Services [address] [place] [address] Information Technology Analyst: Robert Ybarra MD [facility], U Occasional [facility] Comment on above: Performed By: #### C D:[id number], 0853646, 987668, 441272, 951260, 972507 #### [facility] [address] [place] [address] Information Technology Analyst: Robert Ybarra MD Bilirubin, U Negative Normal Negative [facility] Comment on above: Performed By: #### C D:257431443, 0422406, 537322, 201700, 052608, 322661 #### [facility] [address] [place] [address] Information Technology Analyst: Robert Ybarra MD Blood, U Large Abnormal Negative [facility] Comment on above: Performed By: #### C D:[id number], 7614085, 601284, 403508, 586064, 878994 #### [facility] [address] [place] [address] Information Technology Analyst: Robert Ybarra MD Color, U Yellow Normal [facility] Comment on above: Performed By: #### C D:[id number], 4210104, 863223, 309411, 586150, 516995 #### [facility] [address] [place] [address] Information Technology Analyst: Robert Ybarra MD Glucose Qual, U 150 mg/dl Abnormal Negative [facility] Comment on above: Performed By: #### C D:[id number], 2723522, 473164, 458406, 556977, 436581 #### [facility] [address] [place] [address] Information Technology Analyst: Robert Ybarra MD Ketones, U Trace Abnormal Negative [facility] Comment on above: Performed By: #### C D:[id number], 5740342, 939960, 239260, 189070, 990996 #### [facility] [address] [place] [address] Information Technology Analyst: Robert Ybarra MD Leukocyte Esterase, U Negative Normal Negative [facility] [place] [facility] Comment on above: Performed By: #### C D:[id number], 3941178, 737820, 692693, 962314, 094297 #### [facility] [address] [place] [address] Information Technology Analyst: Robert Ybarra MD Mucous, U Occasional Normal [facility] Comment on above: Performed By: #### C D:[id number], 9910768, 755083, 668648, 143536, 794050 #### [facility] [address] [place] [address] Information Technology Analyst: Robert Ybarra MD Nitrite, U Negative Normal Negative [facility] Comment on above: Performed By: #### C D:[id number], 3028623, 183277, 656847, 400885, 477916 #### [facility] [address] [place] [address] Information Technology Analyst: Robert Ybarra MD pH, U 5.0 Normal 4.5-8.0 [facility] Comment on above: Performed By: #### C D:[id number], 5174802, 706033, 733287, 679367, 873149 #### [facility] [address] [place] [address] Information Technology Analyst: Robert Ybarra MD Protein, U Negative Normal Negative [facility] Comment on above: Performed By: #### C D:[id number], 2309764, 957142, 672946, 321452, 033767 #### [facility] [address] [place] [address] Information Technology Analyst: Robert Ybarra MD RBC/HPF, U 2 #/HPF Normal 0-3 [facility] Comment on above: Performed By: #### C D:[id number], 1656346, 192256, 611748, 424283, 705052 #### [facility] [address] [place] [address] Information Technology Analyst: Robert Ybarra MD Specific [place], U 1.009 Normal 1.001-1.035 [facility] Comment on above: Performed By: #### C D:[id number], 3389258, 576614, 409334, 019328, 928248 #### [facility] [address] [place] [address] Information Technology Analyst: Robert Ybarra MD Squamous Epithelial Cells, U 1 #/HPF Normal [facility] Comment on above: Performed By: #### C D:[id number], 6345134, 504885, 395792, 357388, 961754 #### [facility] [address] [place] [address] Information Technology Analyst: Robert Ybarra MD U MICRO Indicated Normal [facility] Comment on above: Performed By: #### C D:[id number], 2450940, 921926, 539298, 437428, 952739 #### [facility] [address] [place] [address] Information Technology Analyst: Robert Ybarra MD Urobilinogen Qual, U <2.0 mg/dl Normal <2.0 mg/dl [facility] Comment on above: Result Comment: EU/d l and mg/dl are equivalent units. Performed By: #### C D:[id number], 9993336, 623837, 497414, 064205, 679935 #### [facility] [address] [place] [address] Information Technology Analyst: Robert Ybarra MD WBC/HPF, U 2 #/HPF Normal 0-5 [facility] Comment on above: Performed By: #### C D:[id number], 5523782, 670914, 781005, 454282, 676667 #### [facility] [address] [place] [address] Information Technology Analyst: Robert Ybarra MD VIT D 25 LEVELon 12-04-2021 Vit D 25 16 ng/mL Normal [facility] Comment on above: Result Comment: Less than 20 ng/ml Deficient 20-30 ng/ml Insufficient 30-100 ng/ml Sufficient Greater than 100 ng/ml Potential toxicity Patients who have recently undergone fluorescein dye angiography in the past 48 to 72 hours (or longer if renal insufficient) may have falsely elevated results. Performed By: #### 9 [id number] ####[facility] [address] [place] [address] Medical Director: Robert Ybarra MD [...] by: Silvia Hill DO 12/03/2021 10:59 PM BREAKER MACHINE TENDER Technologist: JUAN PABLO PHILIPPE Dictated By: SILVIA HILL DO Signed By: SILVIA HILL DO Signed Out: 12/03/21 23:59:23 Normal [facility] ALCOHOL SERUMon 12-03-2021 Alcohol, Serum <3 Normal [facility] Comment on above: Result Comment: Note : Alcohol values performed at [facility] are performed on Serum and reported in mg/dl, which is different then the state reporting units of g/dl which is performed on whole blood. Result reporting units are based on test methodology and are not interchangable. Performed By: #### C D:[id number], 9916435, 933152, 413051, 525830, 547890 #### [facility] [address] [place] [address] Information Technology Analyst: Robert Ybarra MD APTTon 12-03-2021 aPTT Coag (Bld) [Time] 30.4 s Normal 26.0-39.0 So [facility] Comment on above: Performed By: #### C D:[id number], 6494833, 656797, 038833, 061262, 355885 #### [facility] [address] [place] [address] Information Technology Analyst: Robert Ybarra MD AUTO DIFFon 12-03-2021 Baso Count 0.09 x1000 Normal 0.00-0.20 [facility] Comment on above: Performed By: #### C D:[id number], 9057236, 342674, 169428, 042499, 199476 #### [facility] [address] [place] [address] Information Technology Analyst: Robert Ybarra MD Basos % 0.4 % Normal [facility] Comment on above: Performed By: #### C D:[id number], 9942244, 849707, 738740, 070321, 144469 #### [facility] [address] [place] [address] Information Technology Analyst: Robert Ybarra MD Eos Count 0.21 x1000 Normal 0.00-0.50 [facility] Comment on above: Performed By: #### C D:[id number], 3705677, 560587, 952516, 434792, 195843 #### [facility] [address] [place] [address] Information Technology Analyst: Robert Ybarra MD Eosinophils/100 WBC (Bld) 0.9 % Normal [facility] Comment on above: Performed By: #### C D:[id number], 1138568, 966142, 172663, 542054, 818161 #### [facility] [address] [place] [address] Information Technology Analyst: Robert Ybarra MD Lymph Count 5.46 x1000 High 1.20-4.80 [facility] Comment on above: Performed By: #### C D:147240803, 1246087, 112502, 830166, 222239, 646709 #### [facility] [address] [place] [address] Information Technology Analyst: Robert Ybarra MD Lymphocytes/100 WBC (Bld) 24.2 % Normal [facility] Comment on above: Performed By: #### C D:[id number], 4444265, 078516, 031371, 170824, 059450 #### [facility] [address] [place] [address] 45309 Information Technology Analyst: Robert Ybarra MD Saunders Count 0.84 x1000 Normal 0.10-1.00 [facility] Comment on above: Performed By: #### C D:[id number], 9728255, 047645, 568941, 879669, 859402 #### [facility] [address] [place] [address] 40822 Information Technology Analyst: Robert Ybarra MD Monocytes/100 WBC (Bld) 3.7 % Normal [facility] Comment on above: Performed By: #### C D:[id number], 4279985, 367247, 694080, 714353, 659702 #### [facility] [address] [place], [place] [address] Information Technology Analyst: Robert Ybarra MD Neutrophil Count (ANC) 15.99 x1000 High 1.40-8.80 [facility] Comment on above: Performed By: #### C D:[id number], 3806748, 761326, 327962, 808792, 827497 #### [facility] [address] [place] [address] 35337 Information Technology Analyst: Robert Ybarra MD Neutrophils/100 WBC (Bld) 70.8 % Normal [facility] Comment on above: Performed By: #### C D:[id number], 3909520, 887548, 928665, 973527, 199859 #### [facility] [address] [place] [address] 07274 Information Technology Analyst: Robert Ybarra MD Scan Differential Diff Scd Normal [facility] Comment on above: Result Comment: Slid e reviewed by technologist. Performed By: #### C D:[id number], 8193998, 541333, 094026, 563642, 725703 #### [facility] [address] [place] [address] Information Technology Analyst: Robert Ybarra MD BLD GASon 12-03-2021 MAGGIE TEST Normal [facility] Comment on above: Performed By: #### C D:[id number], 7152422, 845016, 406644, 137283, 722880 #### [facility] [address] [place] [address] 29578 Information Technology Analyst: Robert Ybarra MD Base Excess -11.8 mmol/L Normal [facility] Comment on above: Performed By: #### C D:[id number], 5718503, 737090, 309120, 805290, 727153 #### [facility] [address] [place] [address] 47137 Information Technology Analyst: Robert Ybarra MD ePAP 0 cmH20 [facility] Comment on above: Performed By: #### C D:[id number], 9797754, 783170, 815070, 724618, 562105 #### [facility] [address] [place] [address] 60442 Information Technology Analyst: Robert Ybarra MD FIO2 100 % Normal [facility] Comment on above: Performed By: #### C D:[id number], 0167186, 601825, 898933, 052675, 448340 #### [facility] [address] [place] [address] 38192 Information Technology Analyst: Robert Ybarra MD HCO3 (Bld) [Moles/Vol] 15.5 mmol/L Low 22.0-26.0 S [facility] Comment on above: Performed By: #### C D:[id number], 5323119, 935836, 824913, 566254, 575605 #### [facility] [address] [place] [address] Information Technology Analyst: Robret Ybarra MD iPAP 0 cmH20 Normal [facility] Comment on above: Performed By: #### C D:[id number], 1354497, 729030, 798964, 724897, 599220 #### [facility] [address] [place] [address] 42873 Information Technology Analyst: Robert Ybarra MD O2 L/M 15.0 Normal [facility] Comment on above: Performed By: #### C D:[id number], 0128613, 373899, 633255, 322129, 173250 #### [facility] [address] [place] [address] 67360 Information Technology Analyst: Robert Ybarra MD Oxygen (Bld) [Partial pressure] 64.6 mm[Hg] Low 80.0-100.0 [facility] Comment on above: Performed By: #### C D:[id number], 7005651, 911362, 949633, 440508, 114149 #### [facility] [address] [place] [address] 01035 Information Technology Analyst: Robert Ybarra MD Oxygen saturation in Blood 86.6 % [facility] Comment on above: Performed By: #### C D:[id number], 8710899, 962171, 568244, 347279, 738722 #### [facility] [address] [place] [address] 68953 Information Technology Analyst: Robert Ybarra MD PCO2 41.0 mmHg Normal 35.0-45.0 [facility] Comment on above: Performed By: #### C D:[id number], 6101553, 229907, 583453, 699863, 750541 #### [facility] [address] [place] [address] 37663 Information Technology Analyst: Robert Ybarra MD PEEP 0.0 cmH20 [facility] Comment on above: Performed By: #### C D:[id number], 1854794, 030368, 578811, 087723, 667257 #### [facility] [address] [place] [address] Information Technology Analyst: Robert Ybarra MD pH (Bld) 7.196 [pH] Critically abnormal 7.350-7.450 [facility] Comment on above: Result Comment: RESU LTS CALLED WITH READBACK TO DR. SABRINA MOHAN 12/03/2021 21:02:41 EST. Performed By: #### C D:[id number], 3282714, 637568, 580299, 521445, 924105 #### [facility] [address] [place] [address] Information Technology Analyst: Robert Ybarra MD PO2/FiO2 Ratio 65 Low 300-500 [facility] Comment on above: Performed By: #### C D:[id number], 7106998, 212513, 157301, 602462, 026283 #### [facility] [address] [place] [address] 48066 Information Technology Analyst: Robert Ybarra MD Pressure Support. 0 cmH20 Normal [facility] Comment on above: Performed By: #### C D:[id number], 7856172, 036762, 204077, 981220, 401084 #### [facility] [address] [place] [address] 47587 Information Technology Analyst: Robert Ybarra MD RATE 0 bpm Normal [facility] Comment on above: Performed By: #### C D:[id number], 0690974, 839100, 293449, 969450, 531524 #### [facility] [address] [place] [address] Information Technology Analyst: Robert Ybarra MD TEMP 37.0 degC Normal <=37.0 [facility] Comment on above: Performed By: #### C D:[id number], 0544798, 792964, 356652, 474845, 479298 #### [facility] [address] [place] [address] 23233 Information Technology Analyst: Robert Ybarra MD Type of Specimen Venous [facility] Comment on above: Result Comment: RR A RT = Right Artery RB ART = Right Brachial Artery LR ART = Left Radial Artery LB ART = Left Brachial Artery RF ART = Right Femoral Artery LF ART = Left Femoral Artery Performed By: #### C D:[id number], 1908976, 059920, 064009, 372113, 287096 #### [facility] [address] [place] [address] 66057 Information Technology Analyst: Robert Ybarra MD Ventilation Mask [facility] Comment on above: Performed By: #### C D:[id number], 1866330, 472150, 574173, 844539, 608521 #### [facility] [address] [place] [address] 32891 Information Technology Analyst: Robert Ybarra MD VT 00 mL [facility] Comment on above: Performed By: #### C D:[id number], 5324181, 463244, 461269, 374986, 795487 #### [facility] [address] [place] [address] 91572 Information Technology Analyst: Robert Ybarra MD COMPMETAon 12-03-2021 Albumin/Globulin [Mass ratio] 1.3 {ratio} [facility] Comment on above: Performed By: #### C D:[id number], 1216755, 068422, 530429, 507702, 198153 #### [facility] [address] [place] [address] 63217 Information Technology Analyst: Robert Ybarra MD GFR AA 36 [facility] Comment on above: Result Comment: Afri can Cymraes GFR Calc Medical judgement is necessary to [...] for drug dosing. Performed By: #### C D:[id number], 8690935, 963223, 875653, 875919, 712674 #### [facility] [address] [place] [address] 38518 Information Technology Analyst: Robert Ybarra MD Glomerular Filtration Rate 30 mL/min/1.73m? Normal [facility] Comment on above: Result Comment: [...] for drug dosing. Performed By: #### C D:[id number], 2220114, 837364, 751539, 424633, 357269 #### [facility] [address] [place] [address] 03740 Information Technology Analyst: Robert Ybarra MD Osmolality [Osmolality] 297 mosm/kg High 275-295 [facility] Comment on above: Performed By: #### C D:186491360, 8059048, 345591, 832566, 048685, 471329 #### [facility] [address] [place] [address] 29814 Information Technology Analyst: Robert Ybarra MD Urea nitrogen/Creatinine [Mass ratio] 27.3 mg/mg [facility] Comment on above: Performed By: #### C D:588018369, 2462776, 900367, 585380, 775467, 941114 #### [facility] [address] [place] [address] 84127 Information Technology Analyst: Robert Ybarra MD Albumin [Mass/Vol] 3.2 g/dL Low 3.4-5.0 [facility] Comment on above: Performed By: #### C D:[id number], 0243579, 902903, 587427, 663717, 390524 #### [facility] [address] [place] [address] Information Technology Analyst: Robert Ybarra MD Alk Phos 60 unit/L Normal 45-117 [facility] Comment on above: Performed By: #### C D:[id number], 4818013, 052629, 173886, 556825, 016287 #### [facility] [address] [place] [address] 08125 Information Technology Analyst: Robert Ybarra MD Bilirubin [Mass/Vol] 0.26 mg/dL Normal 0.20-1.00 [facility] Comment on above: Result Comment: Use of this assay is not recommended for patients undergoing treatment with eltrombopag due to the potential for falsely elevated results. Performed By: #### C D:[id number], 9645582, 062668, 672180, 189388, 725532 #### [facility] [address] [place] [address] 77504 Information Technology Analyst: Robert Ybarra MD Calcium [Mass/Vol] 8.9 mg/dL Normal 8.5-10.5 [facility] Comment on above: Performed By: #### C D:[id number], 1041701, 024227, 902321, 456168, 354815 #### [facility] [address] [place] [address] 52338 Information Technology Analyst: Robert Ybarra MD Chloride [Moles/Vol] 105 mmol/L Normal 100-109 [facility] Comment on above: Performed By: #### C D:001524347, 0420424, 035535, 810012, 125206, 675285 #### [facility] [address] [place] [address] 14411 Information Technology Analyst: Robert Ybarra MD CO2 [Moles/Vol] 18.9 mmol/L Low 21.0-32.0 [facility] Comment on above: Performed By: #### C D:[id number], 5130716, 630634, 330856, 427123, 111671 #### [facility] [address] [place] [address] Information Technology Analyst: Robert Ybarra MD Creatinine [Mass/Vol] 1.6 mg/dL High 0.6-1.0 [facility] Comment on above: Performed By: #### C D:279589304, 0696409, 093836, 961114, 385331, 300763 #### [facility] [address] [place] [address] 85594 Information Technology Analyst: Robert Ybarra MD Globulin (S) [Mass/Vol] 2.4 g/dL Normal S [facility] Comment on above: Performed By: #### C D:[id number], 9767347, 389105, 486718, 549328, 470508 #### [facility] [address] [place] [address] 14413 Information Technology Analyst: Robert Ybarra MD Glucose [Mass/Vol] 270 mg/dL High 72-100 [facility] Comment on above: Result Comment: Shireen puncture should occur prior to sulfasalazine administration due to the potential for falsely depressed results. Venipuncture should occur prior to sulfapyridine administration due to the potential falsely elevated results. Baseline assay values before administration of sulfasalazine and sulfapyridine therapy would not be affected. Performed By: #### C D:[id number], 9580283, 163315, 648982, 662755, 507392 #### [facility] [address] [place] [address] 95285 Information Technology Analyst: Robert Ybarra MD GOT 61 unit/L High 15-37 [facility] Comment on above: Result Comment: Resu lts may be increased due to hemolysis. Venipuncture should occur prior to sulfasalazine and/or sulfapyridine administration due to the potential for falsely depressed results. Baseline assay values before administration of sulfasalazine and sulfapyridine therapy would not be affected. Performed By: #### C D:[id number], 3122324, 227758, 395532, 481244, 444890 #### [facility] [address] [place] [address] 91529 Information Technology Analyst: Robert Ybarra MD GPT 49 unit/L Normal 13-56 [facility] Comment on above: Result Comment: Shireen puncture should occur prior to sulfasalazine and/or sulfapyridine administration due to the potential for falsely depressed results. Baseline assay values before administration of sulfasalazine and sulfapyridine therapy would not be affected. Performed By: #### C D:[id number], 7886499, 692693, 031049, 148473, 390281 #### [facility] [address] [place] [address] 21066 Information Technology Analyst: Robert Ybarra MD Potassium [Moles/Vol] 5.5 mmol/L High 3.5-5.1 [facility] Comment on above: Result Comment: Resu lts may be increased due to hemolysis. Performed By: #### C D:[id number], 6863155, 275812, 050998, 869203, 856190 #### [facility] [address] [place] [address] 97420 Information Technology Analyst: Robert Ybarra MD Protein [Mass/Vol] 5.6 g/dL Low 6.0-8.5 [facility] Comment on above: Performed By: #### C D:751977454, 9415030, 372144, 771510, 037845, 130006 #### [facility] [address] [place], [place] [address] Information Technology Analyst: Robert Ybarra MD Sodium [Moles/Vol] 138 mmol/L Normal 135-145 [facility] Comment on above: Performed By: #### C D:[id number], 6060819, 699922, 338294, 147955, 311473 #### [facility] [place] [address] Information Technology Analyst: Robert Ybarra MD Urea nitrogen [Mass/Vol] 45 mg/dL High 09-02 [facility] Comment on above: Performed By: #### C D:[id number], 1560541, 554849, 289435, 710181, 867614 #### [facility] [address] [place] [address] Information Technology Analyst: Robert Ybarra MD CT ABD PELVIS WO [...] by: David Barraza MD 12/03/2021 7:49 PM BREAKER MACHINE TENDER Normal [facility] Comment on above: Order Comment: NO OR AL CONTRAST Result Comment: Tech nologist: KATJA GARVIN ND Dictated By: DAVID BARRAZA [...] by: David Barraza MD 12/03/2021 7:37 PM BREAKER MACHINE TENDER Technologist: KATJA GARVIN ND Dictated By: DAVID BARRAZA MD Signed By: DAVID BARRAZA MD Signed Out: 12/03/21 20:37:46 Normal [facility] CT CERVICAL SPINE WO CONTRAS [...] by: David Barraza MD 12/03/2021 7:40 PM BREAKER MACHINE TENDER Workstation: [id number] Technologist: KATJA GARVIN ND Dictated By: DAVID BARRAZA MD Signed By: DAVID BARRAZA MD Signed Out: 12/03/21 20:40:23 [address] [facility] CT CHEST WO CONTRSTon 2021 [...] by: David Barraza MD 12/03/2021 7:46 PM BREAKER MACHINE TENDER Workstation: [employer] Technologist: KATJA GARVIN ND Dictated By: DAVID BARRAZA MD Signed By: DAVID BARRAZA MD Signed Out: 12/03/21 20:46:42 Normal [facility] ED Pre-Arrival Formon 2021 ED Pre-Arrival Form Pre-Arrival Summary Name: ADRYAN-TRAUMA, Current Date: 12/03/2021 19:55:10 EST Gender: Date of : Age: Pre-Arrival Type: EMS ETA: 12/03/2021 20:08:00 EST Primary Care Physician: Presenting Problem: Pre-Arrival User: Laura Smith RN Referring Source: Location: 1 [facility] Emergency Department [address] [place] [address] Notes: Vital Signs: Doctor Call Back: DNR Status: Miscellaneous Issues: Normal [facility] HEMOon 12-03-2021 DIFF? No Normal [facility] Comment on above: Performed By: #### C D:[id number], 0038400, 192856, 909158, 926331, 759133 #### [facility] [address] [place] [address] 06483 Information Technology Analyst: Robert Ybarra MD Nucleated RBC 0 /100WBC Normal [facility] Comment on above: Performed By: #### C D:[id number], 6379911, 281533, 415722, 361427, 108534 #### [facility] [address] [place] [address] 74482 Information Technology Analyst: Robert Ybarra MD [facility] Actions See Notes Abnormal [facility] Comment on above: Result Comment: Scan Slide. Perform manual diff if needed. Scan Slide. Path Review if Required. SNV Performed By: #### C D:[id number], 8249636, 523936, 442370, 748463, 617284 #### [facility] [address] [place] [address] 95115 Information Technology Analyst: Robert Ybarra MD Erythrocyte distribution width (RBC) [Ratio] 14.6 % High 11.5-14.5 [facility] Comment on above: Performed By: #### C D:[id number], 7431207, 241991, 416661, 978455, 303333 #### [facility] [address] [place] [address] 90191 Information Technology Analyst: Robert Ybarra MD Hematocrit (Bld) [Volume fraction] 31.2 % Low 36.0-46.0 [facility] Comment on above: Performed By: #### C D:[id number], 1576315, 826781, 885555, 825904, 244448 #### [facility] [address] [place] [address] 62576 Information Technology Analyst: Robert Ybarra MD Hemoglobin (Bld) [Mass/Vol] 10.1 g/dL Low 12.0-16.0 [facility] Comment on above: Performed By: #### C D:[id number], 9887182, 956355, 949212, 158446, 616759 #### [facility] [address] [place], [place] [address] Information Technology Analyst: Robert Ybarra MD Instr WBC 22.6 Normal [facility] Comment on above: Performed By: #### C D:[id number], 9216280, 076288, 544726, 157251, 141356 #### [facility] [address] [place], [place] [address] Information Technology Analyst: Robert Ybarra MD MCH (RBC) [Entitic mass] 29.6 pg Normal 27.0-34.0 [facility] Comment on above: Performed By: #### C D:[id number], 3746658, 306470, 964630, 113710, 762498 #### [facility] [address] [place] [address] 05578 Information Technology Analyst: Robert Ybarra MD MCHC (RBC) [Mass/Vol] 32.6 g/dL Normal 32.0-37.0 [facility] Comment on above: Performed By: #### C D:[id number], 4369875, 678320, 976270, 398617, 069791 #### [facility] [address] [place] [address] 94855 Information Technology Analyst: Robert Ybarra MD MCV (RBC) [Entitic vol] 90.9 fL Normal 80.0-100.0 S [facility] Comment on above: Performed By: #### C D:[id number], 3763233, 352541, 431511, 348972, 101589 #### [facility] [address] [place] [address] 90959 Information Technology Analyst: Robert Ybarra MD MDW 16.08 Normal 13.98-20.00 [facility] Comment on above: Result Comment: [...] risk of Sepsis. Performed By: #### C D:[id number], 9864246, 147842, 221116, 650829, 049930 #### [facility] [address] [place] [address] 76211 Information Technology Analyst: Robert Ybarra MD Platelet 347 x1000 Normal 150-450 [facility] Comment on above: Performed By: #### C D:[id number], 7287252, 531751, 661301, 166361, 027289 #### [facility] [address] [place] [address] 48867 Information Technology Analyst: Robert Ybarra MD Platelet mean volume (Bld) [Entitic vol] 6.7 fL Low 7.4-10.4 [facility] Comment on above: Performed By: #### C D:[id number], 3887430, 522008, 807181, 348620, 448997 #### [facility] [address] [place] [address] Information Technology Analyst: Robert Ybarra MD RBC 3.43 x10 Low 4.20-5.40 [facility] Comment on above: Result Comment: Note : RBC morphology is normal unless otherwise stated. Evaluation performed only if differential is requested. Performed By: #### C D:[id number], 5087239, 760952, 789473, 517348, 146307 #### [facility] [address] [place] [address] 39659 Information Technology Analyst: Robert Ybarra MD WBC 22.6 x10 High 4.5-11.0 [facility] Comment on above: Performed By: #### C D:[id number], 4620597, 270154, 452724, 789436, 929548 #### [facility] [address] [address] Information Technology Analyst: Robert Ybarra MD I8on 12-03-2021 Anion gap [Moles/Vol] 16 mmol/L Normal 10-20 [facility] Comment on above: Performed By: #### C D:[id number] ####[facility] [address] [place] [address] [phone]) [phone] Director: Robert Ybarra MD Chloride [Moles/Vol] 104 mmol/L Normal 98-109 [facility] Comment on above: Performed By: #### C D:[id number] ####[facility] [address] [place] [address] 22954 Medical Director: Robert Ybarra MD CO2 [Moles/Vol] 21 mmol/L Low 24-32 [facility] Comment on above: Performed By: #### C D:[id number] ####[facility] [address] [place] [address] Medical Director: Robert Ybarra MD Creatinine [Mass/Vol] 1.7 mg/dL High 0.6-1.3 [facility] Comment on above: Performed By: #### C D:[id number] ####[facility] [address] [place], [place] [id number]) [phone] Director: Robert Ybarra MD Glucose [Mass/Vol] 268 mg/dL High 72-110 [facility] Comment on above: Performed By: #### C D:[id number] ####[facility] [address] [place], [place] [id number]) [phone] Director: Robert Ybarra MD Hct, I-Stat 30 %PCV Low 40-54 [facility] Comment on above: Performed By: #### C D:[id number] ####[facility] [address] [place] [id number]) [phone] Director: Robert Ybarra MD Hemoglobin (Bld) [Mass/Vol] 10.2 g/dL Low 14.0-18.0 [facility] Comment on above: Result Comment: The calculation of hemoglobin from hematocrit assumes a normal MCHC. Performed By: #### C D:[id number] ####[facility] [address] [place] [address] [id number]) [phone] Director: Robert Ybarra MD Ionized Calcium, I-Stat 1.24 mmol/L Normal 1.12-1.32 [facility] Comment on above: Performed By: #### C D:[id number] ####[facility] [address] [place] [address] [id number]) [phone] Director: Robert Ybarra MD Potassium [Moles/Vol] 5.2 mmol/L High 3.7-5.1 [facility] Comment on above: Performed By: #### C D:[id number] ####[facility] [address] [place], [place] [id number]) [phone] Director: Robert Ybarra MD Sodium [Moles/Vol] 134 mmol/L Low 138-146 [facility] Comment on above: Performed By: #### C D:[id number] ####[facility] [address] [place] [address] Medical Director: Robert Ybarra MD Urea nitrogen [Mass/Vol] 43 mg/dL High 8-26 [facility] Comment on above: Performed By: #### C D:[id number] ####[facility] [address] [place] [address] Medical Director: Robert Ybarra MD PT INRon 12-03-2021 INR Coag (PPP) [Relative time] 1.0 {INR} Normal [facility] [facility] Comment on above: Result Comment: INR Reference Range: Normal reference range for INR on patients not on anticoagulant therapy: 0.9-1.1 General therapeutic range for patients on anticoagulant therapy: 2.0-3.5 Performed By: #### C D:[id number] #### [facility] [address] [place] [address] Information Technology Analyst: Robert Ybarra MD Protime Patient 11.7 seconds Normal 9.8-13.4 [facility] Comment on above: Performed By: #### C D:[id number] #### [facility] [address] [place] [address] Information Technology Analyst: Robert Ybarra MD TROPONIN HS 0HRon 12-03-2021 Troponin HS 0 Hr 66 pg/mL High 3-54 [facility] Comment on above: Performed By: #### C D:[id number] #### [facility] [address] [place] [address] Information Technology Analyst: Robert Ybarra MD XR CHEST PORTABLEon 12-03-19 [...] by: David Barraza MD 12/03/2021 7:26 PM BREAKER MACHINE TENDER Technologist: SR JOSE MARTIN,RL Dictated By: DAVID BARRAZA MD Signed By: DAVID BARRAZA MD Signed Out: 12/03/21 20:26:51 Normal [facility] XR PELVIS APon 12-03-2021 XR [...] by: David Barraza MD 12/03/2021 7:26 PM BREAKER MACHINE TENDER Technologist: SR JOSE MARTIN,RL Dictated By: DAVID BARRAZA MD Signed By: DAVID BARRAZA MD Signed Out: 12/03/21 20:26:00 Normal [facility] pH Venouson 12-03-2021 pH Venous 7.196 Critically abnormal 7.310-7.410 [facility] Comment on above: Result Comment: RESU LTS CALLED WITH READBACK TO DR. SABRINA MOHAN 12/03/2021 21:04:42 EST. Performed By: #### C D:[id number] ####[facility] [id number] [place] [address] Medical Director: Robert Ybarra MD XR Shoulder - left 3 Viewson 07-14-2021 IMPRESSION: 1. Advanced glenoid humeral osteoarthritis and chronic rotator cuff arthropathy with increased glenoid humeral joint space narrowing compared to the prior study. [facility] Director: PSCB Transcribe Date/Time: Jul 14 2021 9:03A [...] left upper lung. DIVISION OF RADIOLOGY Provider, [facility] - 07/14/2021 * * *Final Report* [...] space narrowing compared to the prior study. [facility] Director: PSCB Transcribe Date/Time: Jul 14 2021 9:03A Dictated by : MIRNA VIZCAINO MD This examination was interpreted and the report reviewed and electronically signed by: MIRNA VIZCAINO MD on Jul 14 2021 9:05AM EST [facility] Radiology Study observation (narrative) Mira archibald [facility] XR Shoulder - left 3 ViewsOr dered By: Ccf Provider on 07-14-2021 [facility] Vital Signs Date Time Vital Sign Value Performing Clinician Facility 02-13-2025 13:33-0400 Body temperature 97.7 [degF] Lien Bang DPM Work Phone: [facility] 02-13-2025 13:33-0400 Diastolic blood pressure 68 mm[Hg] Lien Bang DPM Work Phone: [facility] 02-13-2025 13:33-0400 Heart rate 101 /min Lien Bang DPM Work Phone: [facility] 02-13-2025 13:33-0400 Respiratory rate 20 /min Lien Bang DPM Work Phone: [facility] 02-13-2025 13:33-0400 SaO2% (BldA) [Mass fraction] 98 % Lien Bang DPM Work Phone: [facility] 02-13-2025 13:33-0400 Systolic blood pressure 119 mm[Hg] Lien Bang DPM Work Phone: [facility] 01-16-2025 13:41-0500 Body temperature 97.59 [degF] Lien Bang DPM Work Phone: [facility] 01-16-2025 13:41-0500 Diastolic blood pressure 73 mm[Hg] Lien Bang DPM Work Phone: [facility] 01-16-2025 13:41-0500 Heart rate 76 /min Lien Bang DPM Work Phone: [facility] 01-16-2025 13:41-0500 SaO2% (BldA) [Mass fraction] 96 % Lien Bang DPM Work Phone: [facility] 01-16-2025 13:41-0500 Systolic blood pressure 132 mm[Hg] Lien Alxe DPM Work Phone: [facility] 01-08-2025 13:32-0500 Body temperature 98.1 [degF] Pierce Chi MD Work Phone: [facility] 01-08-2025 13:32-0500 Diastolic blood pressure 74 mm[Hg] Pierce Chi MD Work Phone: [facility] 01-08-2025 13:32-0500 Heart rate 95 /min Pierce Chi MD Work Phone: [facility] 01-08-2025 13:32-0500 SaO2% (BldA) [Mass fraction] 97 % Pierce Chi MD Work Phone: [facility] 01-08-2025 13:32-0500 Systolic blood pressure 165 mm[Hg] Pierce Chi MD Work Phone: [facility] 01-04-2025 08:05-0500 Body height 152.4 cm Tyesha Singleton MD Work Phone: [facility] 01-04-2025 08:05-0500 Body mass index (BMI) [Ratio] 20.24 kg/m2 Tyesha Singleton MD Work Phone: [facility] 01-04-2025 08:05-0500 Body weight 47 kg Tyesha Singleton MD Work Phone: [facility] 01-04-2025 08:05-0500 Diastolic blood pressure 59 mm[Hg] Tyesha Singleton MD Work Phone: [facility] Comment on above: per facility paperwork BP is at baseline 01-04-2025 08:05-0500 Heart rate 84 /min Tyesha Singleton MD Work Phone: [facility] 01-04-2025 08:05-0500 Respiratory rate 16 /min Tyesha Singleton MD Work Phone: [facility] 01-04-2025 08:05-0500 Systolic blood pressure 165 mm[Hg] Tyesha Singleton MD Work Phone: [facility] Comment on above: per facility paperwork BP is at baseline 01-02-2025 08:44-0500 Diastolic blood pressure 72 mm[Hg] Grupo ochoa MD Work Phone: [facility] Comment on above: recheck 01-02-2025 08:44-0500 Systolic blood pressure 152 mm[Hg] Grupo Mendez MD Work Phone: [facility] Comment on above: recheck 01-02-2025 08:41-0500 Body mass index (BMI) [Ratio] 20.24 kg/m2 Grupo Mendez MD Work Phone: [facility] 01-02-2025 08:41-0500 Body temperature 97.9 [degF] Grupo Mendez MD Work Phone: [facility] 01-02-2025 08:41-0500 Body weight 47 kg Grupo Mendez MD Work Phone: [facility] 01-02-2025 08:41-0500 Heart rate 85 /min Grupo Mendez MD Work Phone: [facility] 01-02-2025 08:41-0500 Respiratory rate 18 /min Grupo Mendez MD Work Phone: [facility] 01-02-2025 08:41-0500 SaO2% (BldA) [Mass fraction] 96 % Grupo Mendez MD Work Phone: [facility] 12-26-2024 13:07-0500 Body temperature 97.3 [degF] Lien Bang DPM Work Phone: [facility] 12-26-2024 13:07-0500 Diastolic blood pressure 79 mm[Hg] Lien Bang DPM Work Phone: [facility] 12-26-2024 13:07-0500 Heart rate 96 /min Lien Bang DPM Work Phone: [facility] 12-26-2024 13:07-0500 SaO2% (BldA) [Mass fraction] 95 % Lien Bang DPM Work Phone: [facility] 12-26-2024 13:07-0500 Systolic blood pressure 164 mm[Hg] Lien Bang DPM Work Phone: [facility] 12-02-2024 12:26-0500 SaO2% (BldA) [Mass fraction] 92 % UNKNOWN PROVIDER Comment on above: Order Comment: Specimen Type: ARTERIAL B LOOD SPECIMENOrdering Facility: [facility] Address: [address] [place] [id number] Performed By: #### A LLBG ####[place] [facility]ATORYCL[facility] [id number] [id number] [place] [id number] 10-29-2024 16:27-0500 Diastolic blood pressure 72 mm[Hg] Ab Benson MD Work Phone: [facility] Comment on above: trupbp 10-29-2024 16:27-0500 Heart rate 66 /min Ab Benson MD Work Phone: [facility] 10-29-2024 16:27-0500 Systolic blood pressure 159 mm[Hg] Ab Benson MD Work Phone: [facility] Comment on above: trupbp 10-29-2024 16:24-0500 Body mass index (BMI) [Ratio] 20.67 kg/m2 Ab Benson MD Work Phone: [facility] 10-29-2024 16:24-0500 Body temperature 99.3 [degF] Ab Benson MD Work Phone: [facility] 10-29-2024 16:24-0500 Body weight 48 kg Ab Benson MD Work Phone: [facility] 10-29-2024 16:24-0500 SaO2% (BldA) [Mass fraction] 97 % Ab Benson MD Work Phone: [facility] 09-17-2024 15:04-0500 Body mass index (BMI) [Ratio] 22.48 kg/m2 Grupo Mendez MD Work Phone: [facility] 09-17-2024 15:04-0500 Body weight 52.2 kg Grupo Mendez MD Work Phone: [facility] 09-17-2024 15:04-0500 Diastolic blood pressure 88 mm[Hg] Grupo ochoa MD Work Phone: [facility] 09-17-2024 15:04-0500 Heart rate 92 /min Grupo Mendez MD Work Phone: [facility] 09-17-2024 15:04-0500 Respiratory rate 16 /min Grupo Mendez MD Work Phone: [facility] 09-17-2024 15:04-0500 SaO2% (BldA) [Mass fraction] 99 % Grupo Mendez MD Work Phone: [facility] 09-17-2024 15:04-0500 Systolic blood pressure 166 mm[Hg] Grupo Mendez MD Work Phone: [facility] 09-13-2024 10:45-0400 Diastolic blood pressure 60 mm[Hg] Migdalia Archibald Work Phone: [facility] 09-13-2024 10:45-0400 Systolic blood pressure 150 mm[Hg] Migdalia Cramer MD Work Phone: [facility] 09-13-2024 10:20-0400 Body mass index (BMI) [Ratio] 22.09 kg/m2 Migdalia Cramer MD Work Phone: [facility] 09-13-2024 10:20-0400 Body weight 51.3 kg Migdalia Cramer MD Work Phone: [facility] 09-13-2024 10:20-0400 Heart rate 98 /min Migdalia Cramer MD Work Phone: [facility] 08-14-2024 10:36-0400 Body mass index (BMI) [Ratio] 22 kg/m2 Migdalia Cramer MD Work Phone: [facility] 08-14-2024 10:36-0400 Body temperature 97.59 [degF] Migdalia Cramer MD Work Phone: [facility] 08-14-2024 10:36-0400 Body weight 51.1 kg Migdalia Cramer MD Work Phone: [facility] 08-14-2024 10:36-0400 Diastolic blood pressure 68 mm[Hg] Migdalia Archibald Work Phone: [facility] 08-14-2024 10:36-0400 Heart rate 91 /min Migdalia Cramer MD Work Phone: [facility] 08-14-2024 10:36-0400 SaO2% (BldA) [Mass fraction] 96 % Migdalia Cramer MD Work Phone: [facility] 08-14-2024 10:36-0400 Systolic blood pressure 125 mm[Hg] Migdalia Cramer MD Work Phone: [facility] 07-12-2024 09:59-0400 Diastolic blood pressure 70 mm[Hg] Migdalia Archibald Work Phone: [facility] 07-12-2024 09:59-0400 Systolic blood pressure 142 mm[Hg] Migdalia Cramer MD Work Phone: [facility] 07-12-2024 09:31-0400 Body mass index (BMI) [Ratio] 21.23 kg/m2 Migdalia Cramer MD Work Phone: [facility] 07-12-2024 09:31-0400 Body weight 49.3 kg Migdalia Cramer MD Work Phone: [facility] 07-12-2024 09:31-0400 Heart rate 80 /min Migdalia Cramer MD Work Phone: [facility] 04-13-2023 15:23-0400 Body temperature 98.01 [degF] Willie Mitsch J[employer] JUSTICE OFFICER[employer] Work Phone: [facility] 04-13-2023 15:23-0400 Body weight 54.07 kg Willie Mitsch [employer]ICE OFFICER[employer] Work Phone: [facility] 04-13-2023 15:23-0400 Diastolic blood pressure 63 mm[Hg] Willie Mitsch [employer]ILE JUSTICE OFFICER[employer] Work Phone: [facility] 04-13-2023 15:23-0400 Heart rate 80 /min Willie Mitsch J[employer]ILE JUSTICE OFFICER[employer] Work Phone: [facility] 04-13-2023 15:23-0400 Systolic blood pressure 125 mm[Hg] Willie Mitsch J[employer]ILE JUSTICE OFFICER[employer] Work Phone: [facility] 03-29-2023 15:26-0400 Body weight 53.34 kg Willie Mitsch JUV[employer]ILE JUSTICE OFFICER[employer] Work Phone: [facility] 03-29-2023 15:26-0400 Diastolic blood pressure 71 mm[Hg] Willie Mitsch JUVENILE JUSTICE OFFICER.[employer] Work Phone: [facility] 03-29-2023 15:26-0400 Heart rate 80 /min Willie Mitsch JUV[employer]ILE JUSTICE OFFICER[employer] Work Phone: [facility] 03-29-2023 15:26-0400 Systolic blood pressure 150 mm[Hg] Willie Mitsch JUVENILE JUSTICE OFFICER.C[employer] Work Phone: [facility] 03-17-2023 14:18-0400 Body weight 54.88 kg Willie Mitsch J[employer]ILE JUSTICE OFFICER[employer] Work Phone: [facility] 03-17-2023 14:18-0400 Diastolic blood pressure 67 mm[Hg] Willie Mitsch JUV[employer]ILE JUSTICE OFFICER.[employer] Work Phone: [facility] 03-17-2023 14:18-0400 Heart rate 86 /min Willie Mitsch JUVENILE JUSTICE OFFICER[employer] Work Phone: [facility] 03-17-2023 14:18-0400 Systolic blood pressure 146 mm[Hg] Willie Kaur APRN.CNP Work Phone: [facility] 10-23-2022 08:59-0500 Body weight 55.48 kg Migdalia Cramer MD Work Phone: [facility] 10-23-2022 08:59-0500 Diastolic blood pressure 82 mm[Hg] Migdalia Archibald Work Phone: [facility] 10-23-2022 08:59-0500 Heart rate 87 /min Migdalia Cramer MD Work Phone: [facility] 10-23-2022 08:59-0500 Systolic blood pressure 145 mm[Hg] Migdalia Cramer MD Work Phone: [facility] 05-08-2022 08:07-0400 Diastolic blood pressure 70 mm[Hg] Migdalia Archibald Work Phone: [facility] 05-08-2022 08:07-0400 Heart rate 70 /min Migdalia Cramer MD Work Phone: [facility] 05-08-2022 08:07-0400 Systolic blood pressure 130 mm[Hg] Migdalia Cramer MD Work Phone: [facility] 05-08-2022 08:05-0400 Body weight 53.48 kg Migdalia Cramer MD Work Phone: [facility] 04-03-2022 08:08-0400 Body temperature 98.01 [degF] Migdalia Cramer MD Work Phone: [facility] 04-03-2022 08:08-0400 Body weight 52.34 kg Migdalia Cramer MD Work Phone: [facility] 04-03-2022 08:08-0400 Diastolic blood pressure 68 mm[Hg] Migdalia Archibald Work Phone: [facility] 04-03-2022 08:08-0400 Heart rate 76 /min Migdalia Cramer MD Work Phone: [facility] 04-03-2022 08:08-0400 Systolic blood pressure 137 mm[Hg] Migdalia Cramer MD Work Phone: [facility] Encounters Encounter Date Encounter Type Care Provider Facility Start: 09-16-2025 ambulatory Mario RODAS Facili ty:[facility] Start: 08-27-2025 ambulatory Mario RODAS Facili ty:[facility] Start: 08-19-2025 ambulatory Mario RODAS Facili ty:[facility] Start: 07-31-2025 ambulatory Mario RODAS Facili ty:[facility] Start: 07-31-2025 Registered Referred [facility] Start: 07-22-2025 ambulatory Mario RODAS Facili ty:[facility] Start: 07-22-2025 Registered Referred Mario Mak MD [facility] Start: 07-05-2025 End: 07-05-2025 Telephone encounter Marco A Merida PA-C Work Phone: [facility] Start: 07-01-2025 End: 07-02-2025 ambulatory Migdalia Cramer MD Work Phone: Family Medicine Comment on above: Yusuf's care Start: 06-28-2025 End: 07-01-2025 ambulatory Migdalia Cramer MD Work Phone: Family Medicine Comment on above: [facility] Start: 06-24-2025 ambulatory Mario Krafti ty:[facility] Start: 06-24-2025 Registered Referred Mario Mak MD [facility] Start: 06-20-2025 ambulatory Mario RODAS Facili ty:[facility] Start: 06-20-2025 Registered Referred Mario Mak MD [facility] Start: 06-04-2025 End: 06-04-2025 ambulatory Mario Mak MD -[facility] Start: 06-04-2025 End: 06-04-2025 Departed Referred Mario Mak MD -[facility] Start: 06-04-2025 Registered Referred Mario Mak [facility] Start: 06-04-2025 End: 06-04-2025 ambulatory Mario RODAS Facility:[facility] Start: 05-28-2025 End: 05-28-2025 Telephone encounter Tyesha Singleton MD Work Phone: Rheumatology Comment on above: Results (Outside lab results) Start: 05-27-2025 ambulatory Mario RODAS Facili ty:[facility] Start: 05-27-2025 Registered Referred Mario Mak [facility] Start: 05-01-2025 End: 05-01-2025 Telephone encounter Tyesha Singleton MD Work Phone: Rheumatology Start: 04-29-2025 Registered Referred Mario Mak [facility] Start: 04-29-2025 End: 04-29-2025 ambulatory Mario RODAS Facility:[facility] Start: 04-26-2025 End: 04-26-2025 ambulatory Mario Mak MD [facility] Start: 04-26-2025 End: 04-26-2025 Departed Referred Mario Mak MD [facility] Start: 04-26-2025 End: 04-26-2025 ambulatory Mario RODAS Facility:[facility] Start: 04-10-2025 ambulatory Mario RODAS Facili ty:[facility] Start: 04-10-2025 Registered Referred Mario Mak MD [facility] Start: 04-01-2025 End: 04-01-2025 ambulatory Mario Mak MD [facility] Work Phone: Start: 04-01-2025 End: 04-01-2025 Departed Referred Mario Mak MD [facility] Start: 04-01-2025 Registered Referred Mario Mak MD [facility] Start: 04-01-2025 End: 04-01-2025 ambulatory Mario RODAS Facility:[facility] Start: 03-12-2025 End: 03-12-2025 ambulatory Mario Mak MD [facility] Work Phone: Start: 03-12-2025 End: 03-12-2025 Departed Referred Mario [facility] Start: 03-12-2025 [facility] Start: 03-12-2025 End: 03-12-2025 ambulatory Mario RODAS Facility:[facility] Start: 03-04-2025 End: 03-04-2025 ambulatory Mario Mak MD [facility] Work Phone: Start: 03-04-2025 End: 03-04-2025 Departed Referred Mario Mak MD -[facility] Start: 03-04-2025 End: 03-04-2025 ambulatory Mario RODAS Facility:[facility] Start: 02-13-2025 End: 02-13-2025 Patient encounter procedure Lien Bang DPM Work Phone: Plastic Surgery Comment on above: 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) Start: 02-13-2025 End: 02-13-2025 ambulatory LIEN BANG Facility: Start: 02-11-2025 End: 02-11-2025 Telephone encounter Tyesha Singleton MD Work Phone: Rheumatology Comment on above: Results (Lab results ) Start: 02-04-2025 End: 02-04-2025 ambulatory Mario Mak MD [facility] Work Phone: Start: 02-04-2025 End: 02-04-2025 Departed Referred [facility] Start: 02-04-2025 [facility] Start: 02-04-2025 End: 02-04-2025 ambulatory Mario RODAS Facility:[facility] Start: 01-16-2025 End: 01-18-2025 Refill Willie Kaur APRN.CNP Work Phone: Family Medicine Comment on above: Refill Request Start: 01-16-2025 End: 01-16-2025 ambulatory LIEN BANG Facility: Start: 01-16-2025 End: 01-16-2025 Patient encounter procedure Lien Alex DPM Work Phone: Plastic Surgery Comment on above: Pressure injury of r ight ankle, stage 3 (HCC) (Primary Dx) Start: 01-15-2025 End: 01-15-2025 ambulatory Mario Mak MD [facility] Work Phone: Start: 01-15-2025 End: 01-15-2025 Departed Referred Mario Mak MD -[facility] Start: 01-15-2025 End: 01-15-2025 ambulatory Mario RODAS Facility:[facility] Start: 01-08-2025 End: 01-08-2025 Patient encounter [...] Start: 01-08-2025 End: 01-08-2025 ambulatory UNKNOWN PROVIDER Facility: Start: 01-07-2025 ambulatory Mario RODAS Facili ty:[facility] Start: 01-07-2025 Registered Referred Mario Mak MD [facility] Start: 01-04-2025 End: 01-04-2025 ambulatory TYESHA SINGLETON Facility:[facility] Start: 01-04-2025 End: 01-04-2025 Office outpatient new 45 minutes Tyesha Singleton MD Work Phone: Rheumatology Comment on above: Pseudogout (Primary Dx); Ankle swelling, right; Medication monitoring encounter Start: 01-03-2025 End: 01-10-2025 Telephone encounter Migdalia Cramer MD Work Phone: [address] [place] [address] Comment on above: Patient Update Start: 01-02-2025 End: 01-02-2025 Telephone encounter Aditi ALLEN Work Phone: Hematology/Oncology Comment on above: Distress Assessment Start: 01-02-2025 End: 01-02-2025 ambulatory GRUPO MENDEZ Facility:[facility] Start: 01-02-2025 End: 01-02-2025 ambulatory Grupo Mendez MD Work Phone: Hematology/Oncology Comment on above: Leukocytosis, unspec ified type (Primary Dx); Normocytic anemia; Vitamin B6 deficiency; Cellulitis of right ankle Start: 01-02-2025 End: 01-02-2025 Patient encounter procedure Grupo Mendez MD Work Phone: Hematology/Oncology Start: 2024 ambulatory Marioscottie Coburn ty:[facility] Start: 2024 Registered Referred Mario Mak MD -[facility] Start: 12-26-2024 End: 12-26-2024 Telephone encounter Migdalia Cramer MD Work Phone: Internal Medicine [place] Comment on above: rehab discharge conc erns Start: 12-26-2024 End: 12-26-2024 Patient encounter procedure Lien Bang DPM Work Phone: Plastic Surgery Comment on above: 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) Start: 12-26-2024 End: 12-26-2024 ambulatory Migdalia Cramer MD Work Phone: Family Medicine Comment on above: Call with Yusuf's sons Start: 12-25-2024 End: 12-25-2024 Refill Willie Kaur APRN.[employer] Work Phone: Family [facility] Comment on above: Refill Request Start: 12-24-2024 ambulatory Mario Coburn ty:[facility] Start: 12-24-2024 Registered Referred Mario Mak MD -[facility] Start: 12-18-2024 End: 12-18-2024 E-mail encounter from caregiver Willie Kaur APRN.CNP Work Phone: Family Medicine Start: 12-18-2024 End: 12-18-2024 Follow-up encounter Willie Kaur APRN.[employer] Work Phone: Family Medicine Comment on above: hospital and care home facility follow up Start: 12-17-2024 ambulatory Mario Aubree Coburn ty:[facility] Start: 12-17-2024 Registered Referred Marioscottie Mak MD [facility] Start: 12-12-2024 End: 12-12-2024 Evaluation and management of inpatient DANIEL CASTILLO Facility: Start: 12-10-2024 End: 12-10-2024 Evaluation and management of inpatient DANIEL CASTILLO Facility: Start: 11-29-2024 End: 01-08-2025 Telephone encounter Pierce Chi MD Work Phone: [facility] Comment on above: [employer] (FO R [facility] USE ONLY) Start: 11-28-2024 End: 11-28-2024 ambulatory Pierce Chi MD Work Phone: [place] [facility] Comment on above: [employer] Start Start: 11-26-2024 End: 11-26-2024 Telephone encounter Grupo Mendez MD Work Phone: Hematology/Oncology Comment on above: Appointment Start: 11-23-2024 End: 11-27-2024 Refill Willie Kaur APRN.[employer] Work Phone: Family Medicine Comment on above: Refill Request Start: 11-21-2024 End: 12-12-2024 Evaluation and management of inpatient SHAUN SUAREZ Facility: Start: 11-21-2024 End: 11-22-2024 ambulatory Migdalia Cramer MD Work Phone: Family Medicine Comment on above: MRi and tests Start: 11-19-2024 End: 11-19-2024 ambulatory GRUPO MENDEZ Facility:[facility] Start: 11-19-2024 End: 11-19-2024 ambulatory SIMONE KEVIN Facility:[facility] Start: 11-19-2024 End: 11-19-2024 Subsequent hospital visit by physician Mri [facility] Greta (I-Stat/3t) MRI [facility] Comment on above: Chronic pain of righ t ankle [M25.571, G89.29] Start: 11-06-2024 End: 11-06-2024 ambulatory Grupo Mendez MD Work Phone: Hematology/Oncology Comment on above: [employer] up coming a ppt Start: 11-06-2024 End: 12-11-2024 Telephone encounter Willie Kaur APRN.[employer]ITY BAILIFF Work Phone: Family Medicine Comment on above: Appointment (Rheumat ology) Start: 11-05-2024 End: 11-05-2024 Telephone encounter Grupo Mendez MD Work Phone: Hematology/Oncology Comment on above: Results Start: 11-01-2024 End: 11-01-2024 ambulatory SIMONE KEVIN Facility:[facility] Start: 11-01-2024 End: 11-01-2024 ambulatory SELF Facility:[facility] Start: 11-01-2024 End: 11-01-2024 Patient encounter procedure Simone Kevin MD Work Phone: Orthopaedic Surgery [facility] Comment on above: Right ankle swelling (Primary Dx); Chronic pain of right ankle Start: 11-01-2024 End: 11-01-2024 Subsequent hospital visit by physician Max [facility] 1 Xray [facility] Comment on above: Right ankle swelling [M25.471] Start: 10-29-2024 End: 10-29-2024 ambulatory AB BENSON Facility:[facility] Start: 10-29-2024 End: 10-29-2024 Office outpatient visit 15 minutes Ab Benson MD Work Phone: Family Medicine Comment on above: Chronic pain of righ t ankle (Primary Dx) Start: 10-11-2024 End: 10-12-2024 Refill Willie Kaur APRN.CITY BAILIFF Work Phone: Family Medicine Comment on above: Refill Request Start: 09-20-2024 End: 09-20-2024 ambulatory GRUPO MENDEZ Facility:[facility] Start: 09-20-2024 End: 09-20-2024 Patient encounter procedure Simone Kevin MD Work Phone: Orthopaedic Surgery [facility] Comment on above: Right ankle swelling ; Closed nondisplaced fracture of right calcaneus, unspecified portion of calcaneus, initial encounter Start: 09-19-2024 End: 09-19-2024 ambulatory MIGDALIA CRAMER Facility:[facility] Start: 09-19-2024 End: 09-19-2024 Subsequent hospital visit by physician Xr [facility] Adryan Work Phone: Radiology Comment on above: Pain in joint involv ing right ankle and foot [M25.571] Start: 09-18-2024 End: 09-18-2024 Telephone encounter Grupo Mendez MD Work Phone: Hematology/Oncology Comment on above: Results (Suspicion f or calcaneal bone fracture ) Start: 09-18-2024 ambulatory GRUPO OSCAR [facility] Start: 09-18-2024 End: 09-18-2024 Subsequent hospital visit by physician [facility] 2 Work Phone: Radiology Comment on above: Right ankle swelling [M25.471] Start: 09-17-2024 End: 09-18-2024 ambulatory GRUPO OSCAR Facility:[facility] Start: 09-17-2024 End: 09-17-2024 Subsequent hospital visit by physician Max [facility] Adryan Work Phone: Radiology Comment on above: [...] Start: 09-13-2024 End: 09-13-2024 ambulatory MIGDALIA CRAMER Facility:[facility] Start: 09-13-2024 End: 09-13-2024 Patient encounter procedure Migdalia Cramer MD Work Phone: Family [facility] Comment on above: Medicare annual well ness [...] 09-05-2024 ambulatory Migdalia Cramer MD Work Phone: [facility] Comment on above: Lab results and next steps Start: 09-04-2024 End: 09-05-2024 E-mail encounter from caregiver Migdalia Cramer MD Work Phone: [facility] Start: 08-21-2024 End: 08-24-2024 Refill Migdalia Cramer MD Work Phone: [facility] Comment on above: Refill Request Results Start: 08-14-2024 End: 08-14-2024 ambulatory WILLIE KAUR Facility:[facility] Start: 08-14-2024 End: 08-14-2024 ambulatory MARIUSZ ROMO Facility:[facility] Start: 08-14-2024 End: 08-14-2024 Office outpatient visit 25 minutes Migdalia Cramer MD Work Phone: [facility] Comment on above: Generalized weakness (Primary Dx); Headache, unspecified headache type; Leukocytosis, unspecified type; CKD stage 3 due to type 2 diabetes mellitus (HCC); Normocytic anemia; Essential hypertension; Insomnia; Arthralgia, unspecified joint Start: 08-13-2024 End: 08-13-2024 Emergency department patient visit MARIUSZ ROMO Facility:[facility] Start: 08-13-2024 End: 08-13-2024 ambulatory Migdalia Cramer MD Work Phone: [facility] Comment on above: Fatigue Start: 08-09-2024 End: 08-10-2024 Refill Willie Mitsch JUVENILE JUSTICE OFFICER.[employer] Work Phone: [facility] Comment on above: Refill Request Start: 07-19-2024 End: 07-19-2024 Refill Migdalia Cramer MD Work Phone: [facility] Comment on above: Refill Request Start: 07-12-2024 End: 07-12-2024 ambulatory MIGDALIA CRAMER Facility:[facility] Start: 07-12-2024 End: 07-12-2024 Office outpatient visit 25 minutes Migdalia Cramer MD Work Phone: [facility] Comment on above: Essential hypertensi on (Primary [...] Start: 07-11-2024 End: 07-11-2024 ambulatory WILLIE MITSCH Facility:[facility] Start: 05-23-2024 Refill Willie Mitsch JUVENILE JUSTICE OFFICER.[employer] Work Phone: [facility] Comment on above: Refill Request Start: 04-25-2024 Refill Willie Mitsch JUVENILE JUSTICE OFFICER.[employer] Work Phone: [facility] Comment on above: Refill Request Start: 04-16-2024 Telephone encounter Migdalia hidalgo MD Work Phone: [facility] Comment on above: Medication Problem Start: 03-21-2024 End: 03-21-2024 Patient encounter procedure Gertrudis Bill DO Work Phone: Ophthalmology Comment on above: Type 2 diabetes karen itus without retinopathy (HCC) (Primary Dx); Pseudophakia Start: 03-13-2024 ambulatory Lien Rutledge [facility] Start: 03-13-2024 Patient encounter procedure Lien Rutledge MA [facility] Comment on above: Population Health Na vigation Outreach ([facility] AWV Ad[facility] PCSA/) Start: 02-28-2024 Refill Migdalia gordon MD Work Phone: Family Medicine Start: 02-01-2024 Refill Ok BELTRAN C Work Phone: [facility] Comment on above: Refill Request Start: 01-31-2024 Refill Ok FLORES- C Work Phone: [facility] Comment on above: Refill Request Start: 01-23-2024 Refill Migdalia gordon MD Work Phone: Family [facility] Comment on above: Refill Request Start: 01-11-2024 Refill Migdalia gordon MD Work Phone: Family [facility] Start: 10-14-2023 Refill Migdalia gordon MD Work Phone: Family [facility] Comment on above: Refill Request Start: 09-05-2023 Refill Williedavid Kaur APRN.CNP Work Phone: Family [facility] Comment on above: Refill Request Start: 08-31-2023 Telephone encounter Migdalia hidalgo MD Work Phone: Family [facility] Comment on above: Medication Problem Start: 06-23-2023 Refill Migdalia gordon MD Work Phone: Family [facility] Comment on above: Refill Request Start: 06-02-2023 Refill Migdalia gordon MD Work Phone: Family [facility] Comment on above: Refill Request Start: 05-11-2023 ambulatory Migdalia gordon MD Work Phone: Family [facility] Comment on above: Blood sugar levels Start: 04-28-2023 ambulatory No [facility]cp [facility] [place] Start: 04-19-2023 Telephone encounter Migdalia hidalgo MD Work Phone: Family Medicine Comment on above: Appointment (Re: [facility] [place] appointment) Patient Question (Re : Blood Glucose Monitor) Start: 04-13-2023 End: 04-13-2023 Patient encounter procedure Willie Kaur APRN.CITY BAILIFF Work Phone: Family Medicine Comment on above: Diabetes mellitus, n on-insulin dependent (NIDDM or type II) (HCC) (Primary Dx); CKD stage 3 due to type 2 diabetes mellitus (HCC) Start: 03-29-2023 End: 03-29-2023 Patient encounter procedure Willie Kaur APRN.CITY BAILIFF Work Phone: Family Medicine Comment on above: [...] End: 03-17-2023 Patient encounter procedure Willie Kaur APRN.CITY BAILIFF Work Phone: Family Medicine Comment on above: Pain in both hands ( Primary Dx); Pain in both wrists; Leukocytosis, unspecified type; Type 2 diabetes mellitus with stage 3 chronic kidney disease, without long-term current use of insulin, unspecified whether stage 3a or 3b CKD (HCC); Muscular deconditioning Start: 03-10-2023 Patient Outreach Lien jensen RN Work Phone: [employer] Comment on above: Transition Of Care ( [facility], initial outreach) Start: 02-22-2023 Refill Willie Kaur APRN.CITY BAILIFF Work Phone: Family Medicine [place] Comment on above: Refill Request Start: 01-19-2023 Telephone encounter Migdalia hidalgo MD Work Phone: Family Medicine Comment on above: Refill Request Start: 12-28-2022 Refill Willie Mitsch JUVENILE JUSTICE OFFICER.[employer] Work Phone: Family [facility] Comment on above: Refill Request Start: 10-23-2022 End: 10-23-2022 Patient encounter procedure Migdalia rCamer MD Work Phone: Family Medicine Comment on [...] Refill Migdalia gordon MD Work Phone: Family [facility] Comment on above: Refill Request Start: 08-17-2022 Refill Willie Mitsch JUVENILE JUSTICE OFFICER.[employer] Work Phone: Family [facility] Comment on above: Refill Request (SEE RX NOTES) Start: 06-10-2022 Telephone encounter Migdalia hidalgo MD Work Phone: Family Medicine Comment on above: Orders (Cologuard no t completed) Start: 05-28-2022 Telephone encounter Migdalia hidalgo MD Work Phone: Family [facility] Comment on above: Medication Problem ( [...] stage 3b chronic kidney disease (HCC) Start: 06-14-2022 ambulatory Katia Farooq RN [facility] Start: 04-27-2022 Follow-up encounter Katia love RN [employer] Comment on above: Transition Of Care ( TCM follow up) Start: 04-26-2022 Telephone encounter Migdalia hidalgo MD Work Phone: [facility] Comment on above: Patient Question Start: 04-08-2022 Telephone encounter Migdalia hidalgo MD Work Phone: [facility] Comment on above: Lab Orders Start: 04-03-2022 [...] ambulatory Migdalia gordon MD Work Phone: Family [facility] Comment on above: Pain; UTI Start: 03-29-2022 Telephone encounter Willie norman APRN.[employer] BAIL[employer] Work Phone: Family Medicine Comment on above: Appointment (please make sure she schedules hospital follow up) Start: 03-23-2022 Refill Migdalia gordon MD Work Phone: Internal Medicine Comment on above: Refill Request Start: 03-19-2022 Refill Willie Kaur APRN.CITY BAILIFF Work Phone: [facility] Comment on above: Refill Request Start: 02-25-2022 Telephone encounter Migdalia hidalgo MD Work Phone: Family [facility] Comment on above: Medication Request Start: 12-25-2021 Refill Migdalia gordon MD Work Phone: Family [facility] Comment on above: Refill Request Start: 07-14-2021 End: 07-14-2021 Subsequent hospital visit by physician Max [facility] Adryan Work Phone: Radiology Comment on above: Pain [R52] Procedures Date Procedure Procedure Detail Performing Clinician Start: 06-20-2025 Clostridium difficil e detection Mario Mak MD Start: 04-26-2025 Urine culture Mario mendoza MD Start: 04-26-2025 Urnls dip stick/tabl et reagent auto microscopy Mario Mak MD Start: 04-10-2025 Urine culture Mario mendoza MD Start: 04-10-2025 Urnls dip stick/tabl et reagent auto microscopy Mario Mak MD Start: 01-07-2025 Measurement of renal function Mario Mak MD Comment on above: GFR Calc Start: 01-02-2025 Antibody screen TYESHA ANTONIOBILL Comment on above: Order Comment: Speci men Type: BLOOD SPECIMEN Ordering Facility: [facility] Address: [address] [place] [address] Performed By: #### B [id number] #### [facility] CLIA [id number] [address] [place] [address] [place] #### [id number] #### [facility] CLIA [id number] [address] [place] [address] [place] Start: 2024 Measurement of [...] Author Start: 09-13-2025 Anxiety Screening Anxiety Screening [facility] Start: 09-13-2025 Covid-19 Vaccine ( season) Covid-19 Vaccine ( season) [facility] Comment on above: Postponed from 07/15/2024 (Declined at t his time) Start: 09-13-2025 Depression Screening Depression Screening [facility] Start: 09-13-2025 Diabetic foot examination Diabetic Foot Exam [facility] Start: 09-13-2025 RSV Vaccine (1 - 1-dose 75+ series) RSV Vaccine (1 - 1-dose 75+ series) [facility] Comment on above: Postponed from 2010 (Declined at t his time) Start: 09-13-2025 Shingrix Vaccine (2 of 3) Shingrix Vaccine (2 of 3) [facility] Comment on above: Postponed from 03/19/2015 (Declined at t his time) Start: 09-13-2025 Urine microalbumin profile DTaP,Tdap,Td Vaccine (1 - Tdap) [facility] Comment on above: Postponed from 1954 (Declined at t his time) Start: 08-14-2025 Hepatitis B screening Urine Albumin:Creatinine Ratio [facility] Start: 07-15-2025 Influenza vaccination [facility] Start: 07-11-2025 Hepatitis B surface antibody level LDL Cholesterol [facility] Start: 07-05-2025 End: 07-05-2025 Patient encounter procedure Rheumatology Comment on above: Return in about 6 months (around 07/04/20) for Pseudogout 20m. F/u 6 months Start: 05-13-2025 Influenza vaccination Influenza Vaccine (#1) [facility] Comment on above: Postponed from 07/15/2024 (Declined at t his time) Start: 03-21-2025 Glaucoma screening Dilated Retinal Exam [facility] Start: 03-12-2025 End: 03-12-2025 Patient encounter procedure 03/12/2025 9:00 AM EDT Office Visit Family Medicine [id number] [place] [address] [id number] [place] [address] [place], [place] [id number] 6 month follow up Family Medicine Comment on above: 6 month follow up Start: 02-19-2025 Hemoglobin A1c measurement HbA1C [facility] Start: 02-13-2025 End: 05-15-2025 CBC W Auto Differential panel - Blood COMPLETE BLOOD COUNT AND DIFFERENTIAL Lab Routine Normocytic anemia Expected: 02/13/2025, Expires: 05/15/2025 [facility] Work Phone: Comment on above: Expected: 02/13/2025, Expires: Start: 02-13-2025 End: 05-15-2025 Comprehensive metabolic 2000 panel - Serum or Plasma COMPREHENSIVE METABOLIC PANEL Lab Routine Normocytic anemia Expected: 02/13/2025, Expires: 05/15/2025 [facility] Comment on above: Expected: 02/13/2025, Expires: Start: 02-13-2025 End: 05-15-2025 Pyridoxine [Mass/volume] in Serum or Plasma VITAMIN B6/PYRIDOXIN Lab Routine Normocytic anemia Vitamin B6 deficiency Expected: 02/13/2025, Expires: 05/15/2025 [facility] Comment on above: Expected: 02/13/2025, Expires: Start: 02-13-2025 End: 02-13-2025 Patient encounter procedure 02/13/2025 1:30 PM EDT Office Visit Plastic Surgery [address] [place] [address] Lien Bang, ANIRUDH [address] [facility], [address] [place] [address] appt confirmed with Nj at [facility] home Right ankle-rescheduled with Malia at [facility] 01-28-2025 10:22am-KT Plastic Surgery Comment on above: appt confirmed with Nj at [facility] home Right ankle-rescheduled with Malia at [facility] 01-28-2025 10:22am-KT Start: 02-11-2025 End: 09-13-2025 Basic metabolic 2000 panel - Serum or Plasma BASIC METABOLIC PANEL Lab Routine Essential hypertension Hypertensive kidney disease with stage 3b chronic kidney disease (HCC) CKD stage 3 due to type 2 diabetes mellitus (HCC) Diabetes mellitus, non-insulin dependent (NIDDM or type II) (HCC) Expected: 02/11/2025, Expires: 09/13/2025 [facility] Work Phone: Comment on above: Expected: 02/11/2025, Expires: Start: 02-11-2025 End: 05-13-2025 CBC panel - Blood by Automated count COMPLETE BLOOD COUNT Lab Routine Iron deficiency anemia, unspecified iron deficiency anemia type Leukocytosis, unspecified type Expected: 02/11/2025, Expires: 05/13/2025 [facility] Comment on above: Expected: 02/11/2025, Expires: Start: 02-11-2025 End: 09-13-2025 Hemoglobin A1c in Blood HEMOGLOBIN A1C Lab Routine Diabetes mellitus, non-insulin dependent (NIDDM or type II) (HCC) Expected: 02/11/2025, Expires: 09/13/2025 [facility] Comment on above: Expected: 02/11/2025, Expires: Start: 02-11-2025 End: 09-13-2025 LIPID PANEL, NONFASTING LIPID PANEL, NONFASTING Lab Routine Hyperlipidemia associated with type 2 diabetes mellitus (HCC) (HCC) Diabetes mellitus, non-insulin dependent (NIDDM or type II) (HCC) Expected: 02/11/2025, Expires: 09/13/2025 [facility] Comment on above: Expected: 02/11/2025, Expires: Start: 01-30-2025 End: 01-30-2025 Patient encounter procedure 01/30/2025 1:30 PM EDT Office Visit Plastic Surgery [address] [place] [address] Lien Bang DPM [address], [address] [place] [address] Right ankle Plastic Surgery Comment on above: Right ankle Start: 01-16-2025 End: 01-16-2025 Patient encounter procedure 01/16/2025 1:00 PM EST Office Visit Plastic Surgery [address] [place] [address] Lien Bang DPM [address], [address] [place] [address] Right ankle Plastic Surgery Comment on above: Right ankle Start: 01-08-2025 End: 01-08-2025 Patient encounter procedure Plastic Surgery Comment on above: new to us f/u abx from hospital visit pa tere from [facility] [phone] f/u abx from hospita l visit patient from [facility] [phone] confirmed with Nj at [facility] 01/04/2021 f/u abx from hospital visit patient from [facility] [phone] Start: 01-04-2025 End: 01-04-2025 Patient encounter procedure 01/04/2025 8:00 AM EST Office Visit Rheumatology [address] [place] [address] Tyesha Singleton MD [address] [place], [place] [id number] Inflammatory Arthritis per dr mcghee Rheumatology Comment on above: Inflammatory Arthritis per dr mcghee Start: 01-02-2025 End: 01-02-2025 Follow-up encounter 01/02/2025 8:30 AM EST Visit (SP) Office Hematology/Oncology [address] [place] [address] [place] [address] [place] [address] Follow up Hematology/Oncology Comment on above: Follow up Start: 12-26-2024 End: 12-26-2024 Patient encounter procedure 12/26/2024 1:00 PM EST Office Visit Plastic Surgery [address] [place] [address] Lien Bang, [facility] [address] [facility], [address] [place] [id number] new to [place] right ankle -f/u from [...] EST - 11/27/2024 3:53 PM EST Surgery Surgery [address] [place] [address] Keerthi Plata DPM [address] [facility], [address] [address] INCISION AND DRAINAGE ABSCESS EXTREMITY LOWER SIMPLE OR SINGLE Surgery Comment on above: INCISION AND DRAINAGE [...] 9:10 AM EST Visit (SP) Office Hematology/Oncology [address] [place] [address] [place] [address] [place] [address] folow up Iron Hematology/Oncology Comment on above: folow up Iron Start: 11-21-2024 End: 02-20-2025 CBC W Auto Differential panel - Blood COMPLETE BLOOD COUNT AND DIFFERENTIAL Lab Routine Normocytic anemia Leukocytosis, unspecified type Expected: 11/21/2024, Expires: 02/20/2025 [facility] Work Phone: Comment on above: Expected: 11/21/2024, Expires: Start: 11-21-2024 End: 02-20-2025 Ferritin [Mass/volume] in Serum or Plasma FERRITIN Lab Routine Normocytic anemia Expected: 11/21/2024, Expires: 02/20/2025 [facility] Comment on above: Expected: 11/21/2024, Expires: Start: 11-21-2024 End: 02-20-2025 Iron and Iron binding capacity panel - Serum or Plasma IRON AND TIBC Lab Routine Normocytic anemia Expected: 11/21/2024, Expires: 02/20/2025 [facility] Comment on above: Expected: 11/21/2024, Expires: Start: 11-21-2024 End: 02-20-2025 Zinc [Mass/volume] in Serum or Plasma ZINC BLD Lab Routine Normocytic anemia Expected: 11/21/2024, Expires: 02/20/2025 [facility] Comment on above: Expected: 11/21/2024, Expires: Start: 11-21-2024 End: 11-21-2024 ambulatory 11/21/2024 9:15 AM EST Results Only [facility] [address] [place] [address] lab [facility] Comment on above: lab Start: 11-19-2024 End: 11-19-2024 Patient encounter procedure 11/19/2024 9:30 AM EST Appointment MRI [facility] [address] [place] [address] Chronic pain of right ankle [M25.571, G89.29] MRI [facility] Comment on above: Chronic pain of right ankle [M25.571, G8 9.29] Start: 11-14-2024 Advance Directive Discussion Advance Directive Discussion [facility] Start: 11-14-2024 Hemoglobin A1c measurement HbA1C [facility] Start: 11-14-2024 Medicare Advantage Annual Wellness Visit Medicare Advantage Annual Wellness Visit [facility] Start: 11-01-2024 End: 01-31-2025 C reactive protein [Mass/volume] in Serum or Plasma [facility] Comment on above: Expected: 11/01/2024, Expires: Start: 11-01-2024 End: 01-31-2025 Erythrocyte sedimentation rate [facility] Comment on above: Expected: 11/01/2024, Expires: Start: 10-11-2024 Hemoglobin A1c measurement HbA1C [facility] Start: 09-20-2024 End: 09-20-2024 Patient encounter procedure 09/20/2024 9:10 AM EST Office Visit Orthopaedic Surgery [facility] [address] [place] [address] Simone Kevin MD [address] [place] [address] Right ankle swelling [M25.471]; Closed nondisplaced fracture of right calcaneus, unspecified portion of calcaneus, initial encounter [S92.001A] Orthopaedic Surgery [facility] Comment on above: Right ankle swelling [M25.471]; Closed n ondisplaced fracture of right calcaneus, unspecified portion of calcaneus, initial encounter [S92.001A] Start: 09-18-2024 End: 09-18-2024 Patient encounter procedure 09/18/2024 8:15 AM EST Appointment Radiology [address] [place] [address] Right ankle swelling [M25.471] Radiology Comment on above: Right ankle swelling [M25.471] Start: 09-17-2024 End: 09-17-2024 [facility]QHC visit new patient 09/17/2024 3:10 PM EST Visit (SP) Office Hematology/Oncology [address] [place] [id number] [place] [address] [place] [id number] New patient Hematology/Oncology Comment on above: New patient Start: 09-17-2024 End: 12-17-2024 Pyridoxine [Mass/volume] in Serum or Plasma [facility] Work Phone: Comment on above: Expected: 09/17/2024, Expires: Start: 09-13-2024 End: 09-13-2024 Patient encounter procedure 09/13/2024 10:00 AM EDT Office Visit Family Medicine [address] [place] [address] Migdalia Cramer MD [address] [place] [address] AWV Due Family Medicine Comment on above: AWV Due Start: 09-11-2024 End: 12-11-2024 Basic metabolic 2000 panel - Serum or Plasma BASIC METABOLIC PANEL Lab Routine CKD stage 3 due to type 2 diabetes mellitus (HCC) Hypertensive kidney disease with stage 3b chronic kidney disease (HCC) Essential hypertension Diabetes mellitus, non-insulin dependent (NIDDM or type II) (HCC) Expected: 09/11/2024, Expires: 12/11/2024 [facility] Work Phone: Comment on above: Expected: 09/11/2024, Expires: Start: 09-11-2024 End: 12-11-2024 CBC panel - Blood by Automated count COMPLETE BLOOD COUNT Lab Routine Iron deficiency anemia, unspecified iron deficiency anemia type Expected: 09/11/2024, Expires: 12/11/2024 [facility] Comment on above: Expected: 09/11/2024, Expires: Start: 09-11-2024 End: 12-11-2024 Hemoglobin A1c in Blood HEMOGLOBIN A1C Lab Routine Diabetes mellitus, non-insulin dependent (NIDDM or type II) (HCC) Expected: 09/11/2024, Expires: 12/11/2024 [facility] Comment on above: Expected: 09/11/2024, Expires: 5 Start: 09-11-2024 End: 12-11-2024 Microalbumin/Creatinine [Mass Ratio] in Urine ALBUMIN/CREATININE RATIO, URINE Lab Routine CKD stage 3 due to type 2 diabetes mellitus (HCC) Essential hypertension Diabetes mellitus, non-insulin dependent (NIDDM or type II) (HCC) Expected: 09/11/2024, Expires: 12/11/2024 [facility] Comment on above: Expected: 09/11/2024, [...] deficiency anemia type Expected: 09/11/2024, Expires: 12/11/2024 [facility] Comment on above: Expected: 09/11/2024, Expires: 5 Start: 08-14-2024 End: 11-13-2024 Bacteria identified in Urine by Culture [facility] Comment on above: Expected: 08/14/2024, Expires: 4 Start: 08-14-2024 End: 11-13-2024 C reactive protein [Mass/volume] in Serum or Plasma [facility] Comment on above: Expected: 08/14/2024, Expires: 4 Start: 08-14-2024 End: 11-13-2024 CBC W Ordered Manual Differential panel - Blood [facility] Comment on above: Expected: 08/14/2024, Expires: 4 Start: 08-14-2024 End: 11-13-2024 Erythrocyte sedimentation rate [facility] Work Phone: Comment on above: Expected: 08/14/2024, Expires: Start: 08-14-2024 End: 11-13-2024 PROTEIN ELECT RND UR W/[facility] Comment on above: Expected: 08/14/2024, Expires: Start: 08-14-2024 End: 11-13-2024 [facility] Comment on above: Expected: 08/14/2024, Expires: Start: 08-14-2024 End: 11-13-2024 URINALYSIS, DIPSTICK ONLY [facility] Comment on above: Expected: 08/14/2024, Expires: Start: 08-14-2024 End: 08-14-2024 Patient encounter procedure 08/14/2024 10:40 AM EDT Office Visit Family Medicine [address] [place] [address] [place] [address] [place] [address] Elevated white count and dehydration/fatigue Family Medicine Comment on above: Elevated white count and dehydration/fat igue Start: 07-15-2024 Covid-19 Vaccine ( season) Covid-19 Vaccine ( season) [facility] Start: 07-15-2024 Covid-19 Vaccine ( season) Covid-19 Vaccine ( season) [facility] Start: 07-15-2024 Influenza vaccination [facility] Start: 07-12-2024 End: 07-12-2024 Patient encounter procedure 07/12/2024 9:40 AM EDT Office Visit Family Medicine [address] [place] [address] [place] [address] [place] [address] Follow Up Family Medicine Comment on above: Follow Up Start: 04-12-2024 End: 04-12-2024 Patient encounter procedure 04/12/2024 11:30 AM EDT Office Visit Rheumatology [address] [place] [address] [place] [address] [place] [address] HFU pseudogout Rheumatology Comment on above: HFU pseudogout Start: 03-21-2024 End: 03-21-2024 Patient encounter procedure 03/21/2024 10:45 AM EDT Office Visit [facility] Ophthalmology [address] [place] [address] Gertrudis Bill, DO [address] [place] [address] Dilated Retinal Exam Ophthalmology Comment on above: Dilated Retinal Exam Start: 03-13-2024 End: 09-13-2024 Basic metabolic 2000 panel - Serum or Plasma BASIC METABOLIC PANEL Lab Routine Diabetes mellitus, non-insulin dependent (NIDDM or type II) (HCC) Hyperlipidemia associated with type 2 diabetes mellitus (HCC) (HCC) Essential hypertension Expected: 03/13/2024, Expires: 09/13/2024 [facility] Comment on above: Expected: 03/13/2024, Expires: Start: 03-13-2024 End: 09-13-2024 Hemoglobin A1c in Blood HEMOGLOBIN A1C Lab Routine Diabetes mellitus, non-insulin dependent (NIDDM or type II) (HCC) Expected: 03/13/2024, Expires: 09/13/2024 [facility] Work Phone: Comment on above: Expected: 03/13/2024, Expires: Start: 03-13-2024 End: 09-13-2024 LIPID PANEL, NONFASTING LIPID PANEL, NONFASTING Lab Routine Hyperlipidemia associated with type 2 diabetes mellitus (HCC) (HCC) Expected: 03/13/2024, Expires: 09/13/2024 [facility] Comment on above: Expected: 03/13/2024, Expires: Start: 03-13-2024 End: 09-13-2024 Microalbumin/Creatinine [Mass Ratio] in Urine ALBUMIN/CREATININE RATIO, URINE Lab Routine Diabetes mellitus, non-insulin dependent (NIDDM or type II) (HCC) Expected: 03/13/2024, Expires: 09/13/2024 [facility] Comment on above: Expected: 03/13/2024, Expires: Start: 11-14-2023 Advance Directive Discussion Advance Directive Discussion [facility] Start: 11-14-2023 Behavioral Health Screening Behavioral Health Screening [facility] Start: 11-14-2023 Depression Assessment Depression Assessment [facility] Start: 11-12-2023 Hemoglobin A1c measurement HbA1C [facility] Start: 11-12-2023 Hemoglobin A1c/Hemoglobin.total in Blood HBA1C [facility] Start: 10-23-2023 3 comp foot exam completed DIABETIC FOOT EXAM [facility] Start: 10-23-2023 Diabetic foot examination Diabetic Foot Exam [facility] Start: 10-21-2023 Hepatitis B screening URINE ALBUMIN:CREATININE RATIO [facility] Start: 10-21-2023 Hepatitis B surface antibody level LDL CHOLESTEROL [facility] Start: 09-07-2023 Hemoglobin A1c/Hemoglobin.total in Blood HBA1C [facility] Start: 07-15-2023 Covid-19 Vaccine ( season) Covid-19 Vaccine () [facility] Start: 07-15-2023 Influenza vaccination [facility] Start: 06-17-2023 End: 08-17-2023 Basic metabolic 2000 panel - Serum or Plasma BASIC METABOLIC PNL Lab Routine Type 2 diabetes mellitus with stage 3 chronic kidney disease, without long-term current use of insulin, unspecified whether stage 3a or 3b CKD (HCC) Expected: 06/17/2023 (Approximate), Expires: 08/17/2023 [facility] Work Phone: Comment on above: Expected: 06/17/2023 (Approximate), Expi res: 08/17/2023 Start: 06-17-2023 End: 08-17-2023 Hemoglobin A1c in Blood HGB A1C Lab Routine Type 2 diabetes mellitus with stage 3 chronic kidney disease, without long-term current use of insulin, unspecified whether stage 3a or 3b CKD (HCC) Expected: 06/17/2023 (Approximate), Expires: 08/17/2023 [facility] Work Phone: Comment on above: Expected: 06/17/2023 (Approximate), Expi res: 08/17/2023 Start: 04-29-2023 End: 06-29-2023 Basic metabolic 2000 panel - Serum or Plasma BASIC METABOLIC PNL Lab Routine CKD stage 3 due to type 2 diabetes mellitus (HCC) Diabetes mellitus, non-insulin dependent (NIDDM or type II) (HCC) Expected: 04/29/2023 (Approximate), Expires: 06/29/2023 [facility] Work Phone: Comment on above: Expected: 04/29/2023 (Approximate), Expi res: 06/29/2023 Start: 04-21-2023 Hemoglobin A1c/Hemoglobin.total in Blood HBA1C [facility] Start: 03-23-2023 End: 05-23-2023 Basic metabolic 2000 panel - Serum or Plasma BASIC METABOLIC PNL Lab Routine Diabetes mellitus, non-insulin dependent (NIDDM or type II) (HCC) Expected: 03/23/2023, Expires: 05/23/2023 [facility] Work Phone: Comment on above: Expected: 03/23/2023, Expires: 3 Start: 03-23-2023 End: 05-23-2023 Hemoglobin A1c in Blood HGB A1C Lab Routine Diabetes mellitus, non-insulin dependent (NIDDM or type II) (HCC) Expected: 03/23/2023, Expires: 05/23/2023 [facility] Work Phone: Comment on above: Expected: 03/23/2023, Expires: 3 Start: 03-23-2023 End: 05-23-2023 SCHEDULE LAB TESTING SCHEDULE LAB TESTING Lab Routine Diabetes mellitus, non-insulin dependent (NIDDM or type II) (HCC) Expected: 03/23/2023, Expires: 05/23/2023 [facility] Work Phone: Comment on above: Expected: 03/23/2023, Expires: 3 Start: 11-14-2022 ADVANCE DIRECTIVE DISCUSSION ADVANCE DIRECTIVE DISCUSSION [facility] Start: 11-14-2022 DEPRESSION ASSESSMENT DEPRESSION ASSESSMENT [facility] Start: 10-27-2022 Hemoglobin A1c/Hemoglobin.total in Blood HBA1C [facility] Start: 10-15-2022 3 comp foot exam completed DIABETIC FOOT EXAM [facility] Start: 10-15-2022 SHINGRIX VACCINE (2 of 3) SHINGRIX VACCINE (2 of 3) [facility] Comment on above: Postponed from 03/19/2015 (Declined at t his time) Start: 10-15-2022 Urine microalbumin profile DTAP,TDAP,TD (1 - Tdap) [facility] Comment on above: Postponed from 1954 (Declined at t his time) Start: 10-12-2022 Hepatitis B screening URINE ALBUMIN:CREATININE RATIO [facility] Start: 10-12-2022 Hepatitis B surface antibody level LDL CHOLESTEROL [facility] Start: 10-08-2022 End: 12-08-2022 ALBUMIN/CREAT RATIO RND UR ALBUMIN/CREAT RATIO RND UR Lab Routine Diabetes mellitus, non-insulin dependent (NIDDM or type II) (HCC) Hypertensive kidney disease with stage 3b chronic kidney disease (HCC) Expected: 10/08/2022, Expires: 12/08/2022 [facility] Work Phone: Comment on above: Expected: 10/08/2022, Expires: 3 Start: 10-08-2022 End: 12-08-2022 Basic metabolic 2000 panel - Serum or Plasma BASIC METABOLIC PNL Lab Routine Diabetes mellitus, non-insulin dependent (NIDDM or type II) (HCC) CKD stage 3 due to type 2 diabetes mellitus (HCC) Essential hypertension Hypertensive kidney disease with stage 3b chronic kidney disease (HCC) Expected: 10/08/2022, Expires: 12/08/2022 [facility] Work Phone: Comment on above: Expected: 10/08/2022, Expires: 3 Start: 10-08-2022 End: 12-08-2022 Hemoglobin A1c in Blood HGB A1C Lab Routine Diabetes mellitus, non-insulin dependent (NIDDM or type II) (HCC) Expected: 10/08/2022, Expires: 12/08/2022 [facility] Work Phone: Comment on above: Expected: 10/08/2022, Expires: 3 Start: 10-08-2022 End: 12-08-2022 LIPID PANEL, NONFASTING LIPID PANEL, NONFASTING Lab Routine Diabetes mellitus, non-insulin dependent (NIDDM or type II) (HCC) Hyperlipidemia associated with type 2 diabetes mellitus (HCC) Expected: 10/08/2022, Expires: 12/08/2022 [facility] Work Phone: Comment on above: Expected: 10/08/2022, Expires: 3 Start: 09-24-2022 Hemoglobin A1c/Hemoglobin.total in Blood HBA1C [facility] Start: 07-26-2022 End: 09-25-2022 CBC panel - Blood by Automated count CBC Lab Routine Iron deficiency anemia, unspecified iron deficiency anemia type CKD stage 3 due to type 2 diabetes mellitus (HCC) Expected: 07/26/2022, Expires: 09/25/2022 [facility] Work Phone: Comment on above: Expected: 07/26/2022, Expires: 2 Start: 07-26-2022 End: 09-25-2022 Ferritin [Mass/volume] in Serum or Plasma FERRITIN BLD Lab Routine Iron deficiency anemia, unspecified iron deficiency anemia type Expected: 07/26/2022, Expires: 09/25/2022 [facility] Work Phone: Comment on above: Expected: 07/26/2022, Expires: 2 Start: 07-26-2022 End: 09-25-2022 Iron and Iron binding capacity panel - Serum or Plasma IRON + TIBC Lab Routine Iron deficiency anemia, unspecified iron deficiency anemia type Expected: 07/26/2022, Expires: 09/25/2022 [facility] Work Phone: Comment on above: Expected: 07/26/2022, Expires: 2 Start: 07-15-2022 Influenza vaccination [facility] Start: 04-26-2022 End: 06-26-2022 CBC panel - Blood by Automated count CBC Lab Routine Iron deficiency anemia, unspecified iron deficiency anemia type Expected: 04/26/2022, Expires: 06/26/2022 [facility] Work Phone: Comment on above: Expected: 04/26/2022, Expires: 2 Start: 04-26-2022 End: 06-26-2022 RETIC COUNT RETIC COUNT Lab Routine Iron deficiency anemia, unspecified iron deficiency anemia type Expected: 04/26/2022, Expires: 06/26/2022 [facility] Work Phone: Comment on above: Expected: 04/26/2022, Expires: 2 Start: 04-12-2022 End: 06-12-2022 Bacteria identified in Urine by Culture URINE CULTURE Microbiology Routine Acute cystitis without hematuria Expected: 04/12/2022, Expires: 06/12/2022 [facility] Work Phone: Comment on above: Expected: 04/12/2022, Expires: 2 Start: 04-12-2022 End: 06-12-2022 URINALYSIS, DIPSTICK ONLY URINALYSIS, DIPSTICK ONLY Lab Routine Acute cystitis without hematuria Expected: 04/12/2022, Expires: 06/12/2022 [facility] Work Phone: Comment on above: Expected: 04/12/2022, Expires: 2 Start: 04-11-2022 Hemoglobin A1c/Hemoglobin.total in Blood HBA1C [facility] Start: 11-14-2021 ADVANCE DIRECTIVE DISCUSSION ADVANCE DIRECTIVE DISCUSSION [facility] Start: 11-14-2021 DEPRESSION ASSESSMENT DEPRESSION ASSESSMENT [facility] Start: 12-07-2018 Glaucoma screening Dilated Retinal Exam [facility] Start: 12-07-2018 Hepatitis C antibody, confirmatory test DILATED RETINAL EXAM [facility] Start: 10-22-2016 PNEUMOCOCCAL: 65+ (2 - PPSV23 or PCV20) PNEUMOCOCCAL: 65+ (2 - PPSV23 or PCV20) [facility] Start: 03-19-2015 SHINGRIX VACCINE (2 of 3) SHINGRIX VACCINE (2 of 3) [facility] Start: 06-14-2013 Colonoscopy COLONOSCOPY [facility] Start: 06-14-2013 Screening for malignant neoplasm of colon Colonoscopy [facility] Start: 06-15-2012 COLORECTAL CANCER SCREENING COLORECTAL CANCER SCREENING [facility] Start: 06-15-2012 Screening for malignant neoplasm of colon Colorectal Cancer Screening [facility] Start: 2010 RSV Vaccine (1 - 1-dose 75+ series) RSV Vaccine (1 - 1-dose 75+ series) [facility] Start: 1995 Hepatitis B Vaccine (1 of 3 - Risk 3-dose series) Hepatitis B Vaccine (1 of 3 - Risk 3-dose series) [facility] Start: 1995 RSV Vaccine (1 - 1-dose 60+ series) RSV Vaccine (1 - 1-dose 60+ series) [facility] Start: 1980 COLOGUARD (FIT-DNA) COLOGUARD (FIT-DNA) [facility] Start: [address] COLONOGRAPHY [facility] Start: 1980 FECAL OCCULT BLOOD FECAL OCCULT BLOOD [facility] Start: 1980 Screening for malignant neoplasm of colon [facility] Start: 1980 SIGMOIDOSCOPY SIGMOIDOSCOPY [facility] Start: 1954 Urine microalbumin profile [facility] Start: 1953 Anxiety Screening Anxiety Screening [facility] Start: 1953 Depression Screening Depression Screening [facility] Start: 1940 COVID-19 VACCINE (#1) COVID-19 VACCINE (#1) [facility] Start: 1940 COVID-19 VACCINE (1) COVID-19 VACCINE (1) [facility] Start: 06-30-1936 COVID-19 VACCINE (#1) COVID-19 VACCINE (#1) [facility] COLOGUARD COLOGUARD Lab Ro utine Screening for colon cancer Ordered: 04/08/2022 [facility] Work Phone: Comment on above: Ordered: 04/08/2022 End: 12-01-2025 MR Ankle - right WO contrast MRI ANKLE WO IVCON RIGHT Radiology Routine Chronic pain of right ankle 1 Occurrences starting 11/01/2024 until 12/01/2025 [facility] Comment on above: 1 Occurrences starting 11/01/2024 until 12/01/2025 End: 09-17-2024 XR Ankle - right AP and Lateral and oblique [facility] Work Phone: Comment on above: 1 Occurrences starting 09/17/2024 until 09/17/2024 End: 12-01-2025 XR Ankle - right AP and Lateral and oblique XR ANKLE GENERAL 3V AP/LAT/OBL RIGHT Radiology Routine Right ankle swelling 1 Occurrences starting 11/01/2024 until 12/01/2025 [facility] Work Phone: Comment on above: 1 Occurrences starting 11/01/2024 until 12/01/2025 XR Ankle - right AP and Lateral and oblique XR ANKLE GENERAL 3V AP/LAT/OBL RIGHT Radiology Routine Right ankle swelling 11/01/2024 2:21 PM EST [facility] XR Calcaneus - right 2 Views XR CALCANEUS 2V AXIAL/LAT RIGHT Radiology Routine Pain in joint involving right ankle and foot 09/19/2024 2:13 PM EST [facility] XR Foot - right AP a nd Lateral and oblique XR FOOT GENERAL 3V AP/LAT/OBL RIGHT Radiology Routine Pain in joint involving right ankle and foot 09/19/2024 2:13 PM EST [facility] Work Phone: End: 12-01-2025 XR Foot - right AP and Lateral and oblique XR FOOT GENERAL 3V AP/LAT/OBL RIGHT Radiology Routine Right ankle swelling 1 Occurrences starting 11/01/2024 until 12/01/2025 [facility] Comment on above: 1 Occurrences starting 11/01/2024 until 12/01/2025 XR Foot - right AP a nd Lateral and oblique XR FOOT GENERAL 3V AP/LAT/OBL RIGHT Radiology Routine Right ankle swelling 11/01/2024 2:21 PM EST [facility] Immunizations Immunization Date Immunization Notes Care Provider Shaun garza 12-07-2017 influenza virus vacc ine, unspecified formulation Migdalia Cramer MD Work Phone: [facility] 12-01-2016 influenza, high dose seasonal, preservative-free Migdalia Cramer MD Work Phone: [facility] 10-22-2015 pneumococcal conjuga te vaccine, 13 valent Migdalia Cramer MD Work Phone: [facility] Work Phone: 08-15-2015 influenza, high dose seasonal, preservative-free Migdalia Cramer MD Work Phone: [facility] 01-22-2015 zoster vaccine, live Migdalia alfonso MD Work Phone: [facility] 09-18-2014 influenza, seasonal, injectable Migdalia Cramer MD Work Phone: [facility] Work Phone: 09-04-2013 influenza virus vacc ine, unspecified formulation Migdalia Cramer MD Work Phone: [facility] 08-23-2012 influenza virus vacc ine, unspecified formulation Migdalia Cramer MD Work Phone: [facility] Work Phone: 11-22-2011 pneumococcal polysaccharide vaccine, 23 valent Migdalia Cramer MD Work Phone: [facility] 09-15-2011 influenza virus vacc ine, unspecified formulation Migdalia Cramer MD Work Phone: [facility] 09-03-2010 influenza virus vacc ine, unspecified formulation Migdalia Cramer MD Work Phone: [facility] Payers Date Payer Category Payer Self-pay 2020 Medicare UHC MEDICARE UHC MEDICARE ADVANTAGE PPO [id number] 2020-Present [phone] [address] [address] [place] [address] PPO [id number] 2020 Medicare UHC MEDICARE UHC MEDICARE ADVANTAGE PPO [id number] 2020-Present [phone] [address] [address] [place] [address] PPO [id number] 2020 Medicare (Managed Care) [facility] MEDI CARE ADVANTAGE PPO [id number] 2020 Medicare [id number] Unknown [id number] Unknown [id number] [id number]. 2.462 Unknown [id number]. 2.462 Unknown [id number]. 2.462 Unknown [id number] [id number]. 2.462 Unknown [id number] [id number]. 2.462 Unknown [id number] [id number]. 2.462 Unknown [id number] [id number]. 2.462 Unknown [id number] [id number]. 2.462 Unknown [id number] [id number]. 2.462 Unknown [id number] [id number]. 2.462 Unknown [id number] [id number]. 2.462 Unknown [id number] [id number]. 2.462 Unknown [id number] [id number]. 2.462 Unknown [id number]. [id number] Unknown [id number]. 2.462 Unknown [id number]. 2.462 Social History Date Type Detail Facility Start: 09-16-2011 End: 10-23-2022 Tobacco smoking status NHIS Never smoked tobacco [facility] Start: 10-15-2021 End: 02-13-2025 Alcohol intake Current non-drinker of alcohol (finding) [facility] Start: 09-10-2020 End: 03-08-2023 History SDOH Alcohol Frequency 1 [facility] Start: 09-10-2020 End: 09-16-2020 History SDOH Social Connections Phone 5 [facility] Start: 09-10-2020 End: 09-16-2020 History SDOH Social Connections Get Together 2 [facility] Start: 09-10-2020 History SDOH Social Connections Orthodoxy 3 [facility] Start: 09-10-2020 History SDOH Social Connections Living 4 [facility] Start: 1935 Sex Assigned At Not on file C [facility] Start: 11-09-2021 End: 12-09-2021 Exposure to SARS-CoV-2 (event) Unable to assess [facility] Start: 06-14-2021 End: 05-08-2022 Exposure to SARS-CoV-2 (event) Not sure [facility] Start: 09-16-2011 End: 10-23-2022 Tobacco use and exposure Smokeless tobacco non-user [facility] Start: 09-09-2020 End: 03-17-2023 History of Social function [facility] Start: 09-09-2020 End: 03-17-2023 Social connection and isolation panel [facility] Do you belong to any clubs or organizations such as methodist groups, unions, fraternal or athletic groups, or school groups? Yes [facility] Are you now , , , , never or living with a partner? [facility] How often to you hav e a drink containing alcohol? Never [facility] Start: 10-15-2012 Average Number of Drinks Not on file [facility] Work Phone: Do you feel stress - tense, restless, nervous, or anxious, or unable to sleep at night because your mind is troubled all the time - these days [OSQ] Only a little [facility] (I/We) worried otf er (my/our) food would run out before (I/we) got money to buy more. Never true [facility] Work Phone: In the past 12 month s, was there a time when you were not able to pay the mortgage or rent on time? No [facility] Tobacco smoking stat [facility] Unknown if ever smoked [facility] Work Phone: Start: 02-14-2025 End: 02-21-2025 Sex Female (finding) [facility] Start: 1935 Sex Assigned At Female W [facility] Medical Equipment Procedure Code Equipment Code Equipment Origin al Text Equipment Identifier Dates [id number], [id number], [id number] Start: 2019 End: 08-21-2024 Comment on above: USE DIRECTED TO T EST BLOOD SUGARS 3 TIMES A DAY Test blood sugar onc e daily Functional Status Date Assessment Result Facility 12-12-2024 Are you deaf, or do you have serious difficulty hearing No 12/12/2024 1:12 PM Petrona Arreguin RN No [facility] 12-12-2024 Are you blind, or do you have serious difficulty seeing, even when wearing glasses No 12/12/2024 1:12 PM Petrona Arreguin RN No [facility] 12-12-2024 Do you have serious difficulty walking or climbing stairs No 12/12/2024 1:12 PM Petrona Arreguin RN No [facility] 12-12-2024 Do you have difficul ty dressing or bathing No 12/12/2024 1:12 PM Petrona Arreguin RN [facility] 12-12-2024 Because of a physica l, mental, or emotional condition, do you have difficulty doing errands alone such as visiting a physician's office or shopping No 12/12/2024 1:12 PM Petrona Arreguin RN No [facility] 03-09-2023 Are you deaf, or do you have serious difficulty hearing Yes 03/09/2023 4:15 PM EDT Shannon Stringer RN Yes [facility] 03-09-2023 Are you blind, or do you have serious difficulty seeing, even when wearing glasses No 03/09/2023 4:15 PM EDT Shannon Stringer RN No [facility] 03-09-2023 Do you have serious difficulty walking or climbing stairs Yes 03/09/2023 4:15 PM EDT Shannon Stringer, LIT Yes [facility] 03-09-2023 Do you have difficul ty dressing or bathing Yes 03/09/2023 4:15 PM EDT Shannon Stringer, LIT Yes [facility] 03-09-2023 Because of a physica l, mental, or emotional condition, do you have difficulty doing errands alone such as visiting a physician's office or shopping Yes 03/09/2023 4:15 PM EDT Shannon Stringer RN Yes [facility] Mental Status Date Assessment Result Facility 12-12-2024 Because of a physica l, mental, or emotional condition, do you have serious difficulty concentrating, remembering, or making decisions No 12/12/2024 1:12 PM Petrona Arreguin RN No [facility] 03-09-2023 Because of a physica l, mental, or emotional condition, do you have serious difficulty concentrating, remembering, or making decisions Yes 03/09/2023 4:15 PM EDT Shannon Stringer RN Yes [facility] Clinical Notes 05-25-2017 to 05-28-2025 Telephone Encounter - Lidia Carbajal LPN - 05/28/2025 2:07 PM EDTTelephone Encounter - Lidia Carbajal LPN - 05/28/2025 2:07 PM Lien Gilman DPM - 02/14/2025 9:04 AM EDTPatient Instructions Note Date & Type Note Facility 05-28-2025 Telephone encounter Note Received results of labs done on 05/27/2025 from [facility] (abnormal results in bold): CRP <3.00 0.0-3.0 sed rate 14 0-30 Report sent for scanning. [facility] 05-28-2025 Miscellaneous Notes Received results of labs done on 05/27/2025 from [facility] (abnormal results in bold): CRP <3.00 0.0-3.0 sed rate 14 0-30 Report sent for scanning. documented in this encounter [facility] 05-01-2025 Telephone encounter Note Received results of labs done on [facility] from 04/29/25 (abnormal results in bold): CRP 21.0 sed rate 32 Report sent for scanning. [facility] 05-01-2025 Miscellaneous Notes Received results of labs done on [facility] from 04/29/25 (abnormal results in bold): CRP 21.0 sed rate 32 Report sent for scanning. documented in this encounter [facility] 02-14-2025 Note 02-14-2025 History of Present illness Narrative Date of Visit: 02/13/2025 CHIEF COMPLAINT: Right ankle wound and RT heel pressure check SP OR right ankle incision and drainage and ulcer debridement 11/27/24 DM II, HgbA1c 10.4 (11/21/24) ADM 11/21/24-12/12/24 HISTORY OF PRESENT ILLNESS: Patient presents to the wound center for follow up since admission to [facility] 11/21/24 where she underwent RT ankle [...] accompanied by family members Home Care Company/Nursing Facility:[facility] Consent captured for debridement per Lien Bang DPM and good until July 2025 Anticoagulant Therapy: N/A Living Situation (ie... 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 Bang in 2 weeks - Continue [...] the [facility] documented in this encounter [facility] 02-13-2025 Instructions Margie Steiner RN - 02/13/2025 1:29 PM EDT WOUND CARE INSTRUCTIONS- Yusuf Medina Wound location: Right Ankle [facility]: - Wound Care Instructions: - Gather [...] for 1 additional month then stop Apply tubi-cognos lead D to bilateral lower legs Apply a Single layer tubi-cognos lead compression stocking to the right foot base [...] following changes to the Wound Center at [phone] or go to the Emergency Department: Fever or chills Increased drainage Green or yellow drainage Foul odor Increased pain Hardness around the wound Redness, warmth or swelling of the surrounding tissue Color change to the wound When contacting the wound center at the ([phone]): Leave a message that includes your full [...] emergency department. PLAN/ORDERS: - Return to the [facility] for a follow-up with filter tank operator Dr. Bang in 2 weeks - Continue [...] nail care and foot check Lien Bang DPM/osvaldo/fhm documented in this encounter [facility] 02-13-2025 Note 02-11-2025 Telephone encounter Note Received results of labs done on 02/04/2025 from [facility] (abnormal results in bold): sed rate 23 0-30 Report sent for scanning. [facility] 02-11-2025 Miscellaneous Notes Received results of labs done on 02/04/2025 from [facility] (abnormal results in bold): sed rate 23 0-30 Report sent for scanning. documented in this encounter [facility] 01-18-2025 Telephone encounter Note Noted Willie Kaur APRN.CNP [facility] 01-18-2025 Miscellaneous Notes Noted Willie Kaur APRN.CNP Contacted [facility] spoke with Gabbie (nurse), I asked to clarify patient's medication or send updated med list. She states" We don't need anything from you She's living here permanently & uses primary care in-house doc." No further information was given or obtained. Chart indicates that she is at [facility], phone number on a fax recently received indicates the SNF is [phone]. Please call the facility that she is at to verify which cholesterol medicine she is taking since caregiver Demetria is not currently in chare of medication administration and can't clarify pravachol vs lipitor. Thank you. Willie Kaur APRN.CNP/ Relative Demetria states the patient is in a senior care now, so she needs someone to reach out to her because she states they are giving her different medications at the senior care. Please reach out to her at [phone] Attempted to contact relative Demetria with no success. Left VM requesting call back. If relative returns call, please clarify prescription. Images from the original note were not included. Pended med is Pravastatin (Pravachol). [facility] med list indicates atorvastatin (Lipitor). Please clarify which patient is taking. Willie Kaur APRN.CITY BAILIFF Patient has been identified by name and [...] Jame Hernandez MA documented in this encounter [facility] 01-18-2025 Telephone encounter Note Contacted [facility] spoke with Gabbie (nurse), I asked to clarify patient's medication or send updated med list. She states" We don't need anything from you She's living here permanently & uses primary care in-house doc." No further information was given or obtained. [facility] 01-18-2025 Telephone encounter Note Chart indicates that she is at [facility], phone number on a fax recently received indicates the SNF is [phone]. Please call the facility that she is at to verify which cholesterol medicine she is taking since caregiver Demetria is not currently in chare of medication administration and can't clarify pravachol vs lipitor. Thank you. Willie Kaur APRN.CITY BAILIFF/ [facility] 01-17-2025 Telephone encounter Note Relative Demetria states the patient is in a senior care now, so she needs someone to reach out to her because she states they are giving her different medications at the senior care. Please reach out to her at [phone] [facility] 01-17-2025 Telephone encounter Note Attempted to contact relative Demetria with no success. Left VM requesting call back. If relative returns call, please clarify prescription. [facility] 01-17-2025 Note 01-17-2025 History of Present illness Narrative Date of Visit: 01/16/2025 CHIEF COMPLAINT: Right ankle wound and RT heel pressure check SP OR right ankle incision and drainage and ulcer debridement 11/27/24 DM II, HgbA1c 10.4 (11/21/24) ADM 11/21/24-12/12/24 HISTORY OF PRESENT ILLNESS: Patient presents to the wound center for follow up since admission to [facility] 11/21/24 where she underwent RT ankle [...] negative pressure. To continue wound vac at [place]. Removed vac dressing and debrided wound today. [...] tubigrip every other day. She is at [facility] can WB AT continue offloading right heel, [...] accompanied by family members Home Care Company/Nursing Facility:[facility] Consent captured for debridement per Lien Bang DPM and good until July 2025 Anticoagulant Therapy: N/A Living Situation (ie... 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 DME: Facility SPECIAL NEEDS: Coordination of care N/A Emotional support N/A OR set-up N/A Commodity Lead N/A Incontinence needs N/A DISCHARGED in stable condition to: Arrived via wheelchair accompanied by family & aide PLAN/ORDERS: - Return to [facility] for a follow-up with filter tank operator Dr. Bang in 2 weeks - Follow-up [...] Nanette Welch RN/fm documented in this encounter [facility] 01-17-2025 Telephone encounter Note Images from the original note were not included. Pended med is Pravastatin (Pravachol). Epic med list indicates atorvastatin (Lipitor). Please clarify which patient is taking. Willie Kaur APRN.DRAKE [facility] 01-16-2025 Telephone encounter Note Patient [...] and advise. Jame Hernandez MA [facility] 01-16-2025 Instructions Nanette Welch RN - 01/16/2025 1:12 PM EST WOUND CARE INSTRUCTIONS- Yusuf Medina Wound location: Right Ankle [facility]: - Please re-apply wound VAC [...] the wound base. - Cover with 4x4 [place] SAP bordered foam or equivalent dressing. - Change your dressing every other day or as needed to maintain a clean, dry and intact dressing. Apply a Single layer tubi-cognos lead compression stocking to the right foot base [...] following changes to the Wound Center at [phone] or go to the Emergency Department: Fever or chills Increased drainage Green or yellow drainage Foul odor Increased pain Hardness around the wound Redness, warmth or swelling of the surrounding tissue Color change to the wound When contacting the wound center at the ([phone]): Leave a message that includes your full [...] emergency department. PLAN/ORDERS: - Return to [facility] for a follow-up with filter tank operator Dr. Bang in 2 weeks - Follow-up [...] Bang DPM /mh/fm documented in this encounter [facility] 01-16-2025 Note 01-08-2025 Telephone encounter Note Per Alon-- Labs rev Wit[place] stop date today PICC removal in the SNF Follow up prn The notes went back to the ECF for them to remove the picc line after tonisrrael's last dose [facility] [employer], called to see if the picc line can be removed. I called her back and left a VM that yes, Alon did give orders at today's appt to remove the picc line after the last dose. [facility] 01-08-2025 Miscellaneous Notes Per Alon-- Labs rev Wit[place] stop date today PICC removal in the SNF Follow up prn The notes went back to the F for them to remove the picc line after tonight's last dose [facility] [employer], called to see if the picc line can be removed. I called her back and left a VM that yes, Alon did give orders at today's appt to remove the picc line after the last dose. Yusuf has an appt today with Alon at [facility]. She's currently on Cefazolin 2g iv q8 [...] differential wasn't done on the cbc The DIRECTOR OF SEARCH ENGINE OPTIMIZATION has added it on moving forward The results were attached to the M drive Spoke to the DIRECTOR OF SEARCH ENGINE OPTIMIZATIONnaveen requested Lilo from [facility] called [phone] to schedule the follow up, I gave her the [facility] number and 01/08 for the schedule date. Delfina Elias [place] [facility] [place] will be [place]/c to [facility] [phone] Summary: COPAT ACTION-FOR IDC USE ONLY Images from the original note were not included. 11/28/2024 8:48 PM Pierce Chi [place] PROVIDER ADULT [id number] Patient Info Patient Name Sex Yusuf Medina ([id number]) Female 1935 Encounter Notes Progress Notes by Pierce Chi MD, encounter date 11/28/2024: Progress Notes [facility] Outpatient Parenteral Antimicrobial Therapy (OPAT) Start Form Patient Info Patient MRN Patient Name Address Date of [id number] Yusuf Medina [address] [facility] [id number] 1935 Start Date 11/28/2024 Physician Group [facility] [...] Treatment Course Pierce Chi MD Address [address] [place] [address] Prescribing Provider's signature - electronically signed by Pierce Chi MD on 11/28/24 at 8:50 PM documented in this encounter [facility] 01-08-2025 Note 01-08-2025 History of Present illness Narrative Images [...] or type II) CATIE PLAN: Labs rev Withee stop date today PICC removal in the [...] accompanied by family members Home Care Company/Nursing Facility:[facility] Consent captured for debridement per Lien Bang DPM and alex until December 2024 Anticoagulant Therapy: N/A Living Situation (ie... 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 Bang on January 16 at 1:00 [...] - Please follow-up with your PCP or tractor crane engineer about your elevated blood pressure readings. - [...] to ANY of questions 5-9, [facility] Cinthia Dao RN/TC documented in this encounter [facility] 01-08-2025 Instructions Cinthia Dao RN - 01/08/2025 12:51 PM EST WOUND CARE INSTRUCTIONS- Yusuf Medina Wound location: Right Ankle [facility] HOME: - Please re-apply wound VAC today [...] following changes to the Wound Center at [phone] or go to the Emergency Department: Fever or chills Increased drainage Green or yellow drainage Foul odor Increased pain Hardness around the wound Redness, warmth or swelling of the surrounding tissue Color change to the wound When contacting the wound center at the ([phone]): Leave a message that includes your full [...] emergency department. PLAN/ORDERS: - Return to [facility] for a follow-up with filter tank operator Dr. Bang on January 16 at 1:00 [...] - Please follow-up with your PCP or tractor crane engineer about your elevated blood pressure readings. - If you have any questions or concerns that cannot be answered with the following information, please follow the instructions listed above on how to contact the wound center. Pierce Chi MD/ALANA/TC documented in this encounter [facility] 01-08-2025 Note 01-08-2025 Telephone encounter Note Yusuf has an appt today with Alon at [facility]. She's currently on Cefazolin 2g iv q8 with a stop date for today. [facility] 01-07-2025 Telephone encounter Note Jan 07 labs reviewed, no changes The creat was never done The results were attached to the M drive [facility] 01-04-2025 Telephone encounter Note Received record release from [facility]. Faxed to number provided on form, confirmation fax received. [facility] 01-04-2025 Miscellaneous Notes Received record release from [facility]. Faxed to number provided on form, confirmation fax received. The initial note indicates that a "bank representative" is calling and gave return phone number [phone]. I called this number and phone rang and rang numerous times. No voice mail. I can print of POA, stamp and fax since this is a facility to facility request. Given to nursing. If the "bank representative" needs anything else and calls back, Please ask for name and direct line so that return call can be made. Thank you. Willie Kaur APRN.CNP Spoke with a confidential secretary at [facility], he took the info again to get us a signed records release faxed to the office. Please watch for fax Please advise [facility] that if patient signs record release, they can get any records they need from [facility] medical records. Or family can sign record request at senior care and senior care can fax Family Medicine the records request and I can send what I can. Our fax is [phone]. Willie Kaur APRN.CNP Records release was not signed. Please review and advice. Received call from [facility]. The bank representative has appointment with patient's sons this afternoon at 2 pm and is requesting Advanced Directive/POA paperwork that was scanned in on 12/31. Advised to send records request, but she is concerned about not having this paperwork by 2 pm meeting. [employer] can be reached at [phone]. Fax number given for records request as well. documented in this encounter [facility] 01-04-2025 Telephone encounter Note The initial note indicates that a "bank representative" is calling and gave return phone number [phone]. I called this number and phone rang and rang numerous times. No voice mail. I can print of POA, stamp and fax since this is a facility to facility request. Given to nursing. If the "bank representative" needs anything else and calls back, Please ask for name and direct line so that return call can be made. Thank you. Willie Kaur APRN.CITY BAILIFF [facility] 01-04-2025 Telephone encounter Note Spoke with a confidential secretary at [facility], he took the info again to get us a signed records release faxed to the office. Please watch for fax [facility] 01-04-2025 Telephone encounter Note Please advise [facility] that if patient signs record release, they can get any records they need from [facility] medical records. Or family can sign record request at senior care and senior care can fax Family Medicine the records request and I can send what I can. Our fax is [phone]. Willie Kaur APRN.CITY BAILIFF [facility] 01-04-2025 Note HNO ID: [id number] Author: TYESHA SINGLETON MD Service: ? Author [...] with dramatic improvement Currently she is in [place] and here with AVELINA and nurse aid who gives the history Currently she is pain free Also spoke with her nurse [place] who states patient does nto complain of pain, pretty sedentary. No specific complaints at [place] per nurse Currently doing well, no pain at present Family states after debridement of rt ankle- patient feels weak and does not want to walk around Was living alone until 2 months ago and now at [place]. Prior to debridement , patient was not [...] L REMV CATARACT EXTRACAP,INSERT LENS Bilateral 2020 [facility] predniSONE (DELTASONE) 5 mg tablet Take [...] Sister None B (more content not included)... [facility] 01-04-2025 History of Present illness Narrative Yusuf [...] with dramatic improvement Currently she is in [place] and here with AVELINA and nurse aid who gives the history Currently she is pain free Also spoke with her nurse at [place] who states patient does nto complain of pain, pretty sedentary. No specific complaints at [place] per nurse Currently doing well, no pain at present Family states after debridement of rt ankle- patient feels weak and does not want to walk around Was living alone until 2 months ago and now at [place]. Prior to debridement , patient was not [...] L REMV CATARACT EXTRACAP,INSERT LENS Bilateral 2020 [facility] predniSONE (DELTASONE) 5 mg tablet Take [...] every day prn -written instructions given to [place] as well as verbal instructions to family and nurse who is taking care of her at [place] 2. Rt ankle cellulitis and osteomyelitis -currently [...] Swollen Glands: No documented in this encounter [facility] [facility] 01-03-2025 Telephone encounter Note Records release was not signed. Please review and advice. [facility] 01-03-2025 Telephone encounter Note Received call from [facility]. The bank representative has appointment with patient's sons this afternoon at 2 pm and is requesting Advanced Directive/POA paperwork that was scanned in on 12/31. Advised to send records request, but she is concerned about not having this paperwork by 2 pm meeting. [employer] Loader can be reached at [phone]. Fax number given for records request as well. [facility] 01-02-2025 Telephone encounter Note SOCIAL WORK Date of Service: Thursday January 02, 2025 [facility] Gis Programmer (SW) Aditi Lopez attempted to contact Yusuf Medina by phone using chemical research technician services to complete the distress assessment. Yusuf has been diagnosed with Normocytic anemia. She flagged for moderate depression on 12-31-24. 08/14/2018 11/21/2024 2024 PHQ-9 Score 9 13 12 SW spoke with Yusuf's family member Mercedes. She advised that Yusuf is in a care home facility. Mercedes advised that she completed the questionnaire without the patient. 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 At this time, social work service is declined/deferred based on: she pt is at a SNF and family member completed the questionnaire. Please re-consult social work if any other psychosocial needs arise. Unable To Reach Patient PLAN: Follow up on an as needed basis ALEJANDRO Encarnacion [facility] Work Phone: 01-02-2025 Miscellaneous Notes SOCIAL WORK Date of Service: Thursday January 02, 2025 [facility] Gis Programmer (SW) Aditi Lopez attempted to contact Yusuf Medina by phone using chemical research technician services to complete the distress assessment. Yusuf has been diagnosed with Normocytic anemia. She flagged for moderate depression on 12-31-24. 08/14/2018 11/21/2024 2024 PHQ-9 Score 9 13 12 SW spoke with Yusuf's family member Mercedes. She advised that Yusuf is in a care home facility. Mercedes advised that she completed the questionnaire without the patient. 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 At this time, social work service is declined/deferred based on: she pt is at a SNF and family member completed the questionnaire. Please re-consult social work if any other psychosocial needs arise. Unable To Reach Patient PLAN: Follow up on an as needed basis ALEJANDRO Encarnacion documented in this encounter [facility] 01-02-2025 Instructions Grupo Mendez MD - 01/02/2025 9:19 AM EST Hemoglobin was low at 7.8 Obtaining repeat lab to determine if blood transfusion needed and if needs nutrient support for anemia Recommend repeating blood counts once weekly for next 6 weeks starting next week Please schedule follow-up with Dr. Mendez in 7 weeks For scheduling questions, please call [phone] (tests and appointments). Ask for the oncology automotive technician. For symptom management or care coordination questions, please call Renetta at [phone] or use my chart to reach us. After hours with medical questions, please call the doctor on-call at [phone]. Thank you, Grupo Mendez MD documented in this encounter [facility] 01-02-2025 Note HNO ID: [id number] Author: GRUPO MENDEZ MD Service: ? Author [...] L REMV CATARACT EXTRACAP,INSERT LENS Bilateral 2020 [facility] FAMILY HISTORY Problem Relation Age of [...] (3 mL) I (more content not included)... [facility] 01-02-2025 History of Present illness Narrative Referring [...] L REMV CATARACT EXTRACAP,INSERT LENS Bilateral 2020 [facility] FAMILY HISTORY Problem Relation Age of [...] Range Status 01/02/2025 5.9 % Final Abs Saunders Date Value Ref Range Status 01/02/2025 0.61 [...] today's encounter, 01/02/2025) documented in this encounter [facility] 2024 Telephone encounter Note Dec 31 labs reviewed, no changes The results were attached to the M drive [facility] 12-27-2024 Note 12-27-2024 History of Present illness Narrative Date of Visit: 12/26/2024 CHIEF COMPLAINT: Right ankle wound and NEW RT heel pressure ulcer OR right ankle incision and drainage and ulcer debridement 11/27/24 DM II, HgbA1c 10.4 (11/21/24) ADM 11/21/24-12/12/24 HISTORY OF PRESENT ILLNESS: Patient presents to the wound center for first follow up since admission to [facility] 11/21/24 where she underwent RT ankle [...] negative pressure. To continue wound vac at [facility]. Removed vac dressing and debrided wound today. [...] unsuccessful, became inflamed and infected. Patient arrived via:[facility]/Nursing Facility:[facility] rehab until 01/08 for IV abx Consent captured for debridement per Liencece Bang DPM and alex until December 2024. Special Instructions (for example, patient stands at the bedside for exam/dressing): Anticoagulant Therapy:n/a Living Situation (ie... 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 Provider seeing patient:Lien Bang ANIRUDH __ WOUND [...] order date DME: [employer] , PH: [phone] SPECIAL NEEDS: Coordination of care N/A Emotional support N/A OR set-up N/A Commodity Lead N/A Incontinence needs N/A DISCHARGED in stable [...] to ANY of questions 5-9, consult the [facility] Sravanthi Hollis RN/TC documented in this encounter [facility] 12-26-2024 Telephone encounter Note Noted Willie Kaur APRN.CNP [facility] 12-26-2024 Miscellaneous Notes Noted Willie [...] caregiver demetria tapia calling to have her [email or web address] message she sent below addressed. Yusuf Robles's sons and are in town to make an assessment whether she is able to go home from rehab. Can you talk with them to help with their decision? Please call Nathaniel Medina at [phone]. They are here till Tuesday 12 noon. Thank you. documented in this encounter [facility] 12-26-2024 Telephone encounter Note Contacted [...] a POA to act on pt's behalf [facility] 12-26-2024 Telephone encounter Note Dec 24 labs reviewed, no changes The results were attached to the M drive [facility] 12-26-2024 Telephone encounter Note Addressed in other encounter. Willie Kaur APRN.CNP [facility] 12-26-2024 Miscellaneous Notes Addressed in other encounter. Willie Kaur APRN.CNP documented in this encounter [facility] 12-26-2024 Instructions Sravanthi Hollis RN - 12/26/2024 1:09 PM EST WOUND CARE INSTRUCTIONS- Yusuf Medina Wound location: Right ankle [facility] -PLEASE CONTINUE WOUND VAC PREVIOUS [...] following changes to the Wound Center at [phone] or go to the Emergency Department: Fever or chills Increased drainage Green or yellow drainage Foul odor Increased pain Hardness around the wound Redness, warmth or swelling of the surrounding tissue Color change to the wound When contacting the wound center at the ([phone]): Leave a message that includes your full [...] to be scheduled through Central Scheduling. Call [phone].(If applicable) Please be aware that the Covid19 exposure questions will be asked as you enter the hospital and as you arrive to each area. Thank you for your patience and understanding as we attempt to protect our patients during this difficult time. Lien Bang DPM/fhvimal/tc documented in this encounter [facility] 12-26-2024 Note 12-26-2024 Telephone encounter Note I wish I [...] physical safety for discharge. Willie Kaur APRN.CNP [facility] 12-26-2024 Telephone encounter Note Spoke to the nurse, naveen Cartwright requested [facility] 12-26-2024 Telephone encounter Note Patients caregiver demetria tapia calling to have her [email or web address] message she sent below addressed. Yusuf Robles's sons and are in town to make an assessment whether she is able to go home from rehab. Can you talk with them to help with their decision? Please call Nathaniel Medina at [phone]. They are here till Tuesday 12 noon. Thank you. [facility] Work Phone: 12-25-2024 Telephone encounter Note The following approved medication requests have been transmitted electronically. Requested Prescriptions Signed Prescriptions Disp Refills amLODIPine (NORVASC) 5 mg tablet 90 tablet 3 Sig: TAKE 1 TABLET BY MOUTH ONCE DAILY Authorizing Provider: WILLIE KAUR APRN.CNP [facility] 12-25-2024 Miscellaneous Notes The following approved medication requests have been transmitted electronically. Requested Prescriptions Signed Prescriptions Disp Refills amLODIPine (NORVASC) 5 mg tablet 90 tablet 3 Sig: TAKE 1 TABLET BY MOUTH ONCE DAILY Authorizing Provider: WILLIE KAUR APRN.CITY BAILIFF Patient has been identified by name and [...] Aditi Phan LPN documented in this encounter [facility] 12-25-2024 Telephone encounter Note Patient [...] Please review and advise. Aditi Phan LPN [facility] 12-20-2024 Telephone encounter Note Dec 17 labs wnl The differential wasn't done on the cbc The DIRECTOR OF SEARCH ENGINE OPTIMIZATION has added it on moving forward The results were attached to the M drive [facility] 12-20-2024 Telephone encounter Note Spoke to the DIRECTOR OF SEARCH ENGINE OPTIMIZATION, labs requested [facility] 12-13-2024 Telephone encounter Note Lilo small [facility] called [phone] to schedule the follow up, I gave her the [facility] number and 01/08 for the schedule date. Delfina Elias [facility] 12-11-2024 Note 12-10-2024 Telephone encounter Note [place] [facility] [place]c to [facility] [phone] [facility] 12-10-2024 Note 12-10-2024 Note 12-09-2024 Note 12-09-2024 Note 12-08-2024 Note 12-07-2024 Note 12-07-2024 Note 12-06-2024 Note 12-05-2024 Note 12-04-2024 Note 12-03-2024 Note 12-02-2024 Note 12-01-2024 Note 12-01-2024 Note 12-01-2024 Note 11-30-2024 Note 11-29-2024 Note 11-29-2024 Telephone encounter Note Summary: COPAT ACTION-FOR IDC USE ONLY Images from the original note were not included. 11/28/2024 8:48 PM Pierce Chi [place] PROVIDER ADULT [id number] Patient Info Patient Name Sex Yusuf Medina ([id number]) Female 1935 Encounter Notes Progress Notes by Pierce Chi MD, encounter date 11/28/2024: Progress Notes [facility] Outpatient Parenteral Antimicrobial Therapy (OPAT) Start Form Patient Info Patient MRN Patient Name Address Date of [id number] Yusuf Medina [address] [id number] 1935 Start Date 11/28/2024 [facility]ician [facility] [...] Treatment Course Pierce Chi MD Address [address] [place] [address] Prescribing Provider's signature - electronically signed by Pierce Chi MD on 11/28/24 at 8:50 PM [facility] 11-29-2024 Note 11-28-2024 Note 11-28-2024 History of Present illness Narrative Images from the original note were not included. [facility] Outpatient Parenteral Antimicrobial Therapy (OPAT) Start Form Patient Info Patient MRN Patient Name Address Date of [id number] Yusuf Medina [address] [id number] 1935 Start Date 11/28/2024 [facility] [...] Treatment Course Pierce Chi MD Address [address] [place] [address] Prescribing Provider's signature - electronically signed by Pierce Chi MD on 11/28/24 at 8:50 PM documented in this encounter [facility] 11-28-2024 Note 11-28-2024 Note 11-27-2024 Telephone encounter Note The following approved medication requests have been transmitted electronically. Requested Prescriptions Signed Prescriptions Disp Refills metFORMIN (GLUCOPHAGE) 850 mg tablet 180 tablet 3 Sig: TAKE 1 TABLET BY MOUTH TWICE DAILY WITH MEALS Authorizing Provider: WILLIE KAUR APRN.CITY BAILIFF [facility] 11-27-2024 Miscellaneous Notes The following [...] Martina Tucker MA documented in this encounter [facility] 11-27-2024 Note 11-27-2024 Telephone encounter Note Patient has been [...] Please review and advise. Martina Tucker MA [facility] 11-26-[address] Mendez reviewed labs from . Dr. Mendez recommended for patient to be seen around mid Dec 2024 as hem/onc follow-up. Grupo Mendez MD November 26, 2024 5:33 PM [facility] Work Phone: 11-26-[address] Mendez reviewed labs from . Dr. Mendez recommended for patient to be seen around Dec 2024 as hem/onc follow-up. Grupo Mendez MD November 26, 2024 5:33 PM Spoke w/ pt orthotic and prosthetic technicianDemetria. Pt is still inpatient. When she is discharged she will be sent to a rehab and will not be able to make appts. Any time soon. Please advise for further requirements. documented in this encounter [facility] 11-26-2024 Note 11-26-2024 Telephone encounter Note Spoke w/ pt orthotic and prosthetic technicianDemetria. Pt is still inpatient. When she is discharged she will be sent to a rehab and will not be able to make appts. Any time soon. Please advise for further requirements. [facility] 11-26-2024 Note 11-25-2024 Note 11-24-2024 Note 11-23-2024 Note 11-23-2024 Note 11-22-2024 Note 11-21-2024 Note 11-21-2024 Telephone encounter Note Currently has appointment in Rheumatology 01/04/25 to evaluate for inflammatory arthritis. There was a Hematology appointment scheduled 12/03/24, but rescheduled by family due to location. MRI ankle 11/19/24 ordered by Orthopedics. Patient sent My Chart message to Orthopedics 11/20/24. I reminded patient/family that My Chart can take up to 72 business hours for response. Willie Kaur APRN.CITY BAILIFF [facility] 11-21-2024 Miscellaneous Notes Currently has [...] Willie Kaur APRN.DRAKE documented in this encounter [facility] 11-19-2024 History of Present illness [...] PATIENT PRESENTS WITH AN IMPLANTABLE OR ATTACHED FIREBOAT OPERATOR: No RADIOLOGY DEPARTMENT: MR; Exam(s) Completed: Lower MSK: Ankle/Hind Foot, right PERIPHERAL IV DATA: Not applicable SIGNED BY: FRANCIS Tierney November 19, 2024 10:07 AM documented in this encounter [facility] 11-19-2024 Note HNO ID: [id number] Author: YAZ MAYFIELD MRI Tech Service: Radiology Author Type: Local Delivery Driver Type: Progress Notes Filed: 11/19/2024 10:08 Note [...] PATIENT PRESENTS WITH AN IMPLANTABLE OR ATTACHED FIREBOAT OPERATOR: No RADIOLOGY DEPARTMENT: MR; Exam(s) Completed: Lower MSK: Ankle/Hind Foot, right PERIPHERAL IV DATA: Not applicable SIGNED BY: Yaz Mayfield rn plastics November 19, 2024 10:07 AM [facility] 11-06-2024 Telephone encounter Note Patient took a sooner appt in November. [facility] 11-06-2024 Miscellaneous Notes Patient took a sooner appt in November. Currently has Rheumatology scheduled 01/04/25. Are there any sooner appointments and would family be interested? She has been seeing Hematology and they think that her abnormal blood work may have a Rheumatology cause. Willie Kaur APRN.CNP documented in this encounter [facility] 11-06-2024 Telephone encounter Note Currently has Rheumatology scheduled 01/04/25. Are there any sooner appointments and would family be interested? She has been seeing Hematology and they think that her abnormal blood work may have a Rheumatology cause. Willie Kaur APRN.CNP [facility] 11-05-2024 Telephone encounter Note Patient has secondary leukocytosis in the setting of highly elevated sed rate, RUBEN 1:320 titer, positive ENVIRONMENTAL SCIENCE PROFESSOR Hematology work-up was essentially negative highlighting concern for rheumatological disease. Patient is leaving to [place] for 2 weeks I will schedule lab on 11/21/2024 and see her on 11/22/2024 at 9:10 AM for iron deficiency (this is separate issue). Renetta with care coordination will kindly help with arranging lab and follow-up as above. Patient and family aware of my plan. Grupo Mendez MD November 05, 2024 6:55 PM [facility] 11-05-2024 Miscellaneous Notes Patient has secondary leukocytosis in the setting of highly elevated sed rate, RUBEN 1:320 titer, positive ENVIRONMENTAL SCIENCE PROFESSOR Hematology work-up was essentially negative highlighting concern for rheumatological disease. Patient is leaving to [place] for 2 weeks I will schedule lab on 11/21/2024 and see her on 11/22/2024 at 9:10 AM for iron deficiency (this is separate issue). Renetta with care coordination will kindly help with arranging lab and follow-up as above. Patient and family aware of my plan. Grupo Mendez MD November 05, 2024 6:55 PM documented in this encounter [facility] 11-01-2024 Note Addended by: SIMONE AGUILAR on: 11/01/2024 03:34 PM Modules accepted: Orders [facility] 11-01-2024 Miscellaneous Notes Addended by: SIMONE KEVIN on: 11/01/2024 03:34 PM Modules accepted: Orders documented in this encounter [facility] 11-01-2024 Note HNO ID: [id number] Author: SIMONE KEVIN MD Service: ? Author [...] L REMV CATARACT EXTRACAP,INSERT LENS Bilateral 2020 [facility] Family History: FAMILY HISTORY Problem Relation [...] her anatomy B (more content not included)... [facility] 11-01-2024 History of Present illness Narrative November [...] L REMV CATARACT EXTRACAP,INSERT LENS Bilateral 2020 [facility] Family History: FAMILY HISTORY Problem Relation Age of Onset None Brother None Sister None Brother Medications: Current Outpatient Medications Medication Sig meloxicam (MOBIC) 15 mg tablet TAKE 1 TABLET BY MOUTH ONCE DAILY NEEDED FOR PAIN. DO NOT COMBINE WITH DICLOFENAC GEL traZODone (DESYREL) 50 mg tablet Take 1 tablet by mouth at bedtime as needed for sedation. blood sugar diagnostic (GeoCitiesTOUCH ULTRA TEST) test strip Test blood sugar [...] next visit: No P[place]: [place] [id number] [facility] [id number] FELLOW / RESIDENT: No fellow or resident assisted in this office visit. Simone Kevin MD documented in this encounter [facility] 10-29-2024 Note HNO ID: [id number] Author: AB BENSON MD Service: ? Author Type: Physician Type: Progress Notes Filed: 11/04/2024 19:29 Note Text: This note was created using [employer] Workflow Managementter. Subjective Yusuf Medina is a 88 year [...] and family voiced understanding. Ab Benson MD [facility] 10-29-2024 History of Present illness Narrative Images from the original note were not included. This note was created using [employer] Workflow Management[employer]. Subjective Yusuf Medina is a 88 year [...] Ab Benson MD documented in this encounter [facility] 10-12-2024 Telephone encounter Note The following approved medication requests have been transmitted electronically. Requested Prescriptions Signed Prescriptions Disp Refills meloxicam (MOBIC) 15 mg tablet 90 tablet 3 Sig: TAKE 1 TABLET BY MOUTH ONCE DAILY NEEDED FOR PAIN. DO NOT COMBINE WITH DICLOFENAC GEL Authorizing Provider: WILLIE KAUR APRN.CNP [facility] 10-12-2024 Miscellaneous Notes The following [...] Martina Tucker MA documented in this encounter [facility] 10-12-2024 Telephone encounter Note Patient [...] Please review and advise. Martina Tucker MA [facility] 09-20-2024 History of Present illness [...] L REMV CATARACT EXTRACAP,INSERT LENS Bilateral 2020 [facility] Family History: FAMILY HISTORY Problem Relation Age of Onset None Brother None Sister None Brother Medications: Current Outpatient Medications Medication Sig traZODone (DESYREL) 50 mg tablet Take 1 tablet by mouth at bedtime as needed for sedation. blood sugar diagnostic (GeoCitiesTOUCH ULTRA TEST) test strip Test blood sugar [...] next visit: No PCP: [place] [id number] [facility] [id number] FELLOW / RESIDENT: No fellow or resident assisted in this office visit. Simone Kevin MD documented in this encounter [facility] 09-20-2024 Note HNO ID: [id number] Author: SIMONE KEVIN MD Service: ? Author [...] L REMV CATARACT EXTRACAP,INSERT LENS Bilateral 2020 [facility] Family History: FAMILY HISTORY Problem Relation Age of Onset None Brother None Sister None Brother Medications: Current Outpatient Medications Medication Sig traZODone (DESYREL) 50 mg tablet Take 1 tablet by mouth at bedtime as needed for sedation. blood sugar diagnostic (RelatientUCH ULTRA TEST) test strip Test blood sugar [...] May have so (more content not included)... [facility] 09-19-2024 History of Present illness Narrative Radiology [...] PATIENT PRESENTS WITH AN IMPLANTABLE OR ATTACHED FIREBOAT OPERATOR: No RADIOLOGY DEPARTMENT: General X-ray: Exam(s) Completed: Lower Extremity X-Ray(s): Foot, Right and Wt. Bearing and Heel, Right and Wt. Bearing PERIPHERAL IV DATA: Not applicable SIGNED BY: RUT Hui September 19, 2024 2:13 PM documented in this encounter [facility] 09-19-2024 Note HNO ID: [id number] Author: ZAID KUHN CT Service: Radiology Author [...] PATIENT PRESENTS WITH AN IMPLANTABLE OR ATTACHED FIREBOAT OPERATOR: No RADIOLOGY DEPARTMENT: General X-ray: Exam(s) Completed: Lower Extremity X-Ray(s): Foot, Right and Wt. Bearing and Heel, Right and Wt. Bearing PERIPHERAL IV DATA: Not applicable SIGNED BY: RUT Hui September 19, 2024 2:13 PM [facility] 09-18-2024 Telephone encounter Note Results were reviewed. I spoke with [id number] Demetria about suspicion for calcaneal bone fracture. Orders Signed This Visit (1) CONSULT PANEL TO ORTHOPAEDICS STAT, Dx: 1. Right ankle swelling 2. Closed nondisplaced fracture of right calcaneus, unspecified portion of calcaneus, initial encounte Grupo Mendez MD September 18, 2024 9:19 PM [facility] 09-18-2024 Miscellaneous Notes Results were reviewed. I spoke with [id number] Demetria about suspicion for calcaneal bone fracture. Orders Signed This Visit (1) CONSULT PANEL TO ORTHOPAEDICS STAT, Dx: 1. Right ankle swelling 2. Closed nondisplaced fracture of right calcaneus, unspecified portion of calcaneus, initial encounte Grupo Mendez MD September 18, 2024 9:19 PM documented in this encounter [facility] 09-18-2024 History of Present illness [...] PATIENT PRESENTS WITH AN IMPLANTABLE OR ATTACHED FIREBOAT OPERATOR: No RADIOLOGY DEPARTMENT: Ultrasound PERIPHERAL IV DATA: Not applicable SIGNED BY: Christina Tucker RDMS September 18, 2024 8:37 AM documented [facility] this encounter [facility] [facility] 09-18-2024 Note 09-17-2024 Telephone encounter Note This was addressed in hematology appointment in [place]. Closing this encounter [facility] 09-17-2024 Miscellaneous Notes This was addressed in hematology appointment in [place]. Closing this encounter Vm left for patient's son. She has an appointment today in [place]-can Yusuf go to express care there after hematology? documented in this encounter [facility] 09-17-2024 Instructions Grupo Mendez MD - 09/17/2024 3:52 PM EST Please schedule Xray right ankle today Please schedule STAT US DVT right lower leg tomorrow Please send patient to lab today For scheduling questions, please call [phone] (tests and appointments). Ask for the oncology automotive technician. For symptom management or care coordination questions, please call Renetta Holder at [phone] or use my chart to reach us. After hours with medical questions, please call the doctor on-call at [phone]. Thank you, Grupo Mendez MD documented in this encounter [facility] 09-17-2024 History of Present illness Narrative Consultation requested by Dr. Migdalia Cramer for an opinion regarding leukocytosis. My final recommendations will be communicated back to the requesting physician by way of shared Medical record or letter to requesting physician via US mail. Presenting complaint: Patient Yusuf Medina was sent to my office to be evaluated for leukocytosis. ASSESSMENT: (P03.082) Leukocytosis, unspecified type (primary encounter diagnosis) Comment: [...] L REMV CATARACT EXTRACAP,INSERT LENS Bilateral 2020 [facility] FAMILY HISTORY Problem Relation Age of [...] as needed for sedation. blood sugar diagnostic (RelatientUCH ULTRA TEST) test strip Test blood sugar [...] Range Status 09/17/2024 5.5 % Final Abs Saunders Date Value Ref Range Status 09/17/2024 0.52 [...] Migdalia Ortiz MD documented in this encounter [facility] 09-17-2024 Note HNO ID: [id number] Author: GRUPO MENDEZ MD Service: ? Author [...] office to be evaluated for leukocytosis. ASSESSMENT: (D76.82) Leukocytosis, unspecified type (primary encounter diagnosis) Comment: [...] L REMV CATARACT EXTRACAP,INSERT LENS Bilateral 2020 [facility] FAMILY HISTORY Problem Relation Age of [...] as needed for sedation. blood sugar diagnostic (RelatientUCH ULTRA TEST) test strip Test blood sugar [...] ONCE DAILY metFORMIN (more content not included)... [facility] 09-17-2024 Telephone encounter Note Vm left for patient's son. She has an appointment today in [place]-can Yusuf go to express care there after hematology? [facility] 09-13-2024 Note HNO ID: [id number] Author: MIGDALIA CRAMER MD Service: ? Author [...] panel in 6 months Migdalia Cramer MD [facility] 09-13-2024 History of Present illness Narrative Images [...] Migdalia Cramer MD documented in this encounter [facility] 09-13-2024 Instructions Migdalia Cramer MD [...] review all the medicines you take, even zmph-naj-ivjdcta medicines. As you get older, the way [...] certain medical conditions. documented in this encounter [facility] 09-04-2024 Telephone encounter Note Patient has been scheduled for 09/17 Thank you [facility] 09-04-2024 Miscellaneous Notes Patient has been scheduled for 09/17 Thank you Please contact the patient's lsntzi-wh-egd Demetria at [phone] to assist with scheduling a consult with [...] recommend we get a consultation with a enterprise project manager, a blood specialist. I put an order in for a consultation and will ask a automotive technician to contact you to get it set up. We just want to make sure there is nothing serious going on that we should be more concerned about. Migdalia Cramer MD documented in this encounter [facility] 09-04-2024 Telephone encounter Note Please contact the patient's ohbiev-te-dgd Demetria at [phone] to assist with scheduling a consult with hematology/oncology for a high white blood cell count. I sent a Reveal message today about test results: Rhys Castillo [...] recommend we get a consultation with a enterprise project manager, a blood specialist. I put an order in for a consultation and will ask a automotive technician to contact you to get it set up. We just want to make sure there is nothing serious going on that we should be more concerned about. Migdalia Cramer MD [facility] 08-22-2024 Telephone encounter Note Patients sister in law has been informed. Thank you [facility] 08-22-2024 Miscellaneous Notes Patients sister [...] of the labs. documented in this encounter [facility] 08-21-2024 Telephone encounter Note Please let her know that Dr. Cramer is currently evaluating the lab results and will reach out to her as soon as he is able. He is currently out of the office. Willie APRN.CNP [facility] 08-21-2024 Telephone encounter Note The following approved medication requests have been transmitted electronically. Requested Prescriptions Signed Prescriptions Disp Refills blood sugar diagnostic (ONETOUCH ULTRA TEST) test strip 100 Strip 3 Sig: Test blood sugar once daily Authorizing Provider: WILLIE KAUR APRN.CNP [facility] 08-21-2024 Miscellaneous Notes The following [...] 2024 10:12 AM documented in this encounter [facility] 08-21-2024 Telephone encounter Note Patient [...] and advise. Jame Hernandez MA [facility] 08-21-2024 Telephone encounter Note Prescription [...] August 21, 2024 10:12 AM [facility] 08-21-2024 Telephone encounter Note Patients sister in law called and wanted to discuss the results of the labs. T [facility] 08-14-2024 History of Present illness [...] a long period of time Willie Kaur APRN.CITY BAILIFF I have personally performed a zitg-yb-wysa evaluation on this patient. I have reviewed [...] Migdalia Cramer MD documented in this encounter [facility] 08-14-2024 Note HNO ID: [id number] Author: MIGDALIA CRAMER MD Service: ? Author [...] COMBINE WITH DICLOFENAC GEL blood sugar diagnostic (RelatientUCH ULTRA TEST) test strip Test blood sugar [...] swelling or eryt (more content not included)... [facility] 08-13-2024 Note SARS-COV-2 (AGENT OF COVID-19) RNA: Not detected INFLUENZA A RNA: Not detected INFLUENZA B RNA: Not detected RESPIRATORY SYNCYTIAL VIRUS (RSV) RNA: Not detected [facility] Comment on above: Performed By: #### B CRPB1 #### [facility] CLIA [id number] [address] [place] [address] [place] #### [id number] #### [facility] CLIA [id number] [address] [place] [address] [place] [address] [place] 08-13-2024 Telephone encounter Note Called sister in law who is with the patient, patient is Scottish speaking. ? Blood sugar-patient checks every am, did not do today and is not understanding that sister in law would like her to check it now. She did eat this morning Falls recently Concern based on pill box that she may have taken a days Sister-in -law is in agreement that patient needs to be seen in an emergency room-[facility] [place] close. Reason for Disposition [1] Drinking very little AND [2] dehydration suspected (e.g., no urine > 12 hours, very dry mouth, very lightheaded) Answer Assessment - Initial Assessment Questions 1. DESCRIPTION: "Describe how you are feeling." Patient speaks Scottish, Sister-in -law is there with her. Patient [...] pain) no Protocols used: Weakness (Generalized) and Iydscko-RULCF-FN [facility] 08-13-2024 Miscellaneous Notes Called sister in law who is with the patient, patient is Scottish speaking. ? Blood sugar-patient checks every am, did not do today and is not understanding that sister in law would like her to check it now. She did eat this morning [place] recently Concern based on pill box that she may have taken a days Sister-in -law is in agreement that patient needs to be seen in an emergency room-[place]. Reason for Disposition [1] Drinking very little AND [2] dehydration suspected (e.g., no urine > 12 hours, very dry mouth, very lightheaded) Answer Assessment - Initial Assessment Questions 1. DESCRIPTION: "Describe how you are feeling." Patient speaks Scottish, Sister-in -law is there with her. Patient [...] pain) no Protocols used: Weakness (Generalized) and Bepzcoq-KYOWY-LC Patient's caregiver Demetria spoke with the patient [...] seen today. Demetria can be reached at [phone]. documented in this encounter [facility] 08-13-2024 Telephone encounter Note Patient's [...] seen today. Demetria can be reached at [phone]. [facility] 08-10-2024 Telephone encounter Note The following approved medication requests have been transmitted electronically. Requested Prescriptions Signed Prescriptions Disp Refills glipiZIDE (GLUCOTROL XL) 2.5 mg 24 hr tablet 90 tablet 3 Sig: TAKE 1 TABLET BY MOUTH ONCE DAILY Authorizing Provider: WILLIE KAUR APRN.CITY BAILIFF [facility] 08-10-2024 Miscellaneous Notes The following approved medication requests have been transmitted electronically. Requested Prescriptions Signed Prescriptions Disp Refills glipiZIDE (GLUCOTROL XL) 2.5 mg 24 hr tablet 90 tablet 3 Sig: TAKE 1 TABLET BY MOUTH ONCE DAILY Authorizing Provider: WILLIE KAUR APRN.DRAKE Patient has been identified by name [...] Sandrita Christianson LPN documented in this encounter [facility] 08-10-2024 Telephone encounter Note Patient [...] Please review and advise. Sandrita Christianson LPN [facility] 07-19-2024 Telephone encounter Note The following approved [...] BEING SHIPPED Authorizing Provider: WILLIE KAUR APRN.CNP [facility] 07-19-2024 Miscellaneous Notes The following approved medication [...] KAUR APRN.CNP [facility], fpc to [facility] per message below. [...] 2024 9:49 AM documented in this encounter [facility] 07-19-2024 Telephone encounter Note [facility] to [facility] pharmacy per message below. [facility] 07-19-2024 Telephone encounter Note Prescription [...] short term refill can be sent to [facility] and then the rest sent to [facility]. Please advise Perla Perez July 19, 2024 9:49 AM [facility] 07-12-2024 Instructions Migdalia Cramer MD - 07/12/2024 9:56 AM EDT Try drinking 1 Glucerna a day to get some extra calories. I don't want you to continue to lose weight. Take all medications exactly as prescribed. Please have labs done again in late August. Keep appointment scheduled for 09/13/24 for Medicare Annual Wellness Visit. documented in this encounter [facility] 07-12-2024 Note HNO ID: [id number] Author: MIGDALIA CRAMER MD Service: ? Author Type: Physician Type: Progress Notes Filed: 07/12/2024 14:26 Note Text: SUBJECTIVE: Yusuf Medina is a 88 year old female who presents for evaluation and treatment of Diabetes Mellitus, Hypertension, and Hyperlipidemia and CKD Here with Demetria MIKE March 2023 Last virtual April 2023 Had [...] of keeping this visit Migdalia Cramer MD [facility] 07-12-2024 History of Present illness Narrative SUBJECTIVE: [...] Migdalia Cramer MD documented in this encounter [facility] 05-23-2024 Telephone encounter Note Patient [...] Please review and advise. Sandrita Christianson LPN [facility] 05-23-2024 Miscellaneous Notes Patient has [...] only has 2 pills left Perla Bang [facility] May 23, 2024 10:28 AM documented in this encounter [facility] 05-23-2024 Telephone encounter Note Prescription [...] only has 2 pills left Perla Bang [facility] May 23, 2024 10:28 AM [facility] 04-26-2024 Telephone encounter Note Scheduled for Medicare AWV 09/13/24 Has lab orders The following approved medication requests have been transmitted electronically. Requested Prescriptions Signed Prescriptions Disp Refills pioglitazone (ACTOS) 45 mg tablet 90 tablet 3 Sig: Take 1 tablet by mouth once daily. Authorizing Provider: MIGDALIA CRAMER MD [facility] 04-26-2024 Miscellaneous Notes Scheduled for [...] Jame Hernandez MA documented in this encounter [facility] 04-26-2024 Telephone encounter Note Patient [...] and advise. Jame Hernandez MA [facility] 04-16-2024 Telephone encounter Note Spoke with sister in law, Demetria and explained that her current Rx is for Glipizide/Glucotrol 2.5 mg once daily - not for Glyburide. Verbalized understanding. No further questions. [facility] 04-16-2024 Miscellaneous Notes Spoke with sister Demetria caputo and explained that her current Rx is for Glipizide/Glucotrol 2.5 mg once daily - not for Glyburide. Verbalized understanding. No further questions. 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 Please advise [facility] 03-21-2024 History of Present illness Narrative Type [...] its relevant components. documented in this encounter [facility] 03-13-2024 History of Present illness Narrative POPULATION [...] POPULATION HEALTH NAVIGATION OUTREACH Action/FYI Spoke with kpljqi-jq-ifs Demetria. Patient is on [facility] for the following HM care gaps: Schedule [...] Diabetic Eye Exam HBA1C 03/21/2024 in [facility] with GERTRUDIS BILL - Dilated Retinal Exam 04/12/2024 in [facility] with ADITI CAMARGO - HFU pseudogout 07/12/2024 in [facility] with MIGDALIA CRAMER - Follow Up, HCC Gap Closure 09/13/2024 in [facility] with MIGDALIA CRAMER - AWV Due HCC related Navigation Signature: Lien Rutledge MA March 13, 2024 2:52 PM documented in this encounter [facility] 02-28-2024 Miscellaneous Notes The following approved medication requests have been transmitted electronically. Requested Prescriptions Signed Prescriptions Disp Refills lansoprazole (PREVACID) 30 mg capsule 90 capsule 3 Sig: Take 1 capsule by mouth once daily. Authorizing Provider: WILLIE KAUR APRN.CNP Order pended for mail Last OV-04/23/2023 [facility] Next OV-[employer] is calling ,asking for a refill on the following medications . pravastatin (PRAVACHOL) 20 mg tablet 90 tablet 3 10/23/2022 10/23/2023 Sig: Take 1 tablet by mouth once daily. Sent to pharmacy as: pravastatin (PRAVACHOL) 20 mg tablet Class: Normal Route: ORAL Order: [id number] E-Prescribing Status: Receipt confirmed by pharmacy (10/23/2022 9:10 AM EST) She doesn't have many left , they are asking for this fill to be sent to the [facility] . Then if she gets refills send it to the mail in pharmacy . Please advise and route back so we can make orthotic and prosthetic technician aware . Thanks documented in this encounter [facility] 02-01-2024 Miscellaneous Notes The following approved medication requests have been transmitted electronically. Requested Prescriptions Signed Prescriptions Disp Refills lisinopril-hydroCHLOROthiazide (ZESTORETIC) 20-25 mg per tablet 90 tablet 3 Sig: TAKE 1 TABLET BY MOUTH ONCE DAILY Authorizing Provider: WILLIE KAUR APRN.CITY BAILIFF documented in this encounter [facility] 02-01-2024 Miscellaneous Notes The following approved medication requests have been transmitted electronically. Requested Prescriptions Signed Prescriptions Disp Refills amLODIPine (NORVASC) 5 mg tablet 90 tablet 3 Sig: TAKE 1 TABLET BY MOUTH ONCE DAILY Authorizing Provider: WILLIE KAUR APRN.CNP documented in this encounter [facility] 01-24-2024 Miscellaneous Notes Contacted the caregiver stated the patient pickle processor the prescription. Request denied no further action needed. 7 day short term Rx sent to [facility] on 01/11/24. 1 year technician terminal and repeater Rx sent to [facility] on 01/11/24. Please call to clarify if [...] review and advise. Jame Hernandez MA [facility] Willie Kaur APRN.CNP Order Providers Prescribing Provider Encounter Provider Willie Kaur APRN.CNP Hopkins, Kevin D, MD Outpatient Medication Detail Disp Refills Start End metFORMIN (GLUCOPHAGE) 850 mg tablet 14 tablet 0 01/11/2024 01/18/2024 Sig: Take 1 tablet by mouth two times a day with meals for 7 days. Sent to pharmacy as: metFORMIN (GLUCOPHAGE) 850 mg tablet Class: Normal Route: ORAL Order: [id number] E-Prescribing Pt states she is completely out and mail order has not come in would like a short supply sent to [facility] documented in this encounter [facility] 01-11-2024 Miscellaneous Notes The following [...] temporary supply to be sent to [facility] while they wait for [facility] for 90 day supply. Please review and advise. Jame Hernandez MA Yusuf Medina called today. Reason : Yusuf orthotic and prosthetic technician is calling today , she states the [...] mg tablet Class: Normal Route: ORAL Order: [id number] E-Prescribing Status: Receipt confirmed by pharmacy (10/14/2023 2:49 PM EST) Please advise and route back so caregiver can be updated . Thanks documented in this encounter [facility] 10-14-2023 Miscellaneous Notes The following approved medication requests have been transmitted electronically. Requested Prescriptions Signed Prescriptions Disp Refills metFORMIN (GLUCOPHAGE) 850 mg tablet 14 tablet 0 Sig: Take 1 tablet by mouth two times a day with meals for 7 days. Authorizing Provider: WILLIE KAUR APRN.CITY BAILIFF Patient has been identified by name and [...] needs an emergency script sent to [facility] on [address] in [place]. Patient has been identified by name and date of : Yes Requested Prescriptions Pending Prescriptions Disp Refills metFORMIN (GLUCOPHAGE) 850 mg tablet 180 tablet 3 Sig: Take 1 tablet by mouth two times a day with meals. RX INSTRUCTIONS: Patient aware RX escripted to mail away pharmacy. No need to notify patient. Dinora Perez documented in this encounter [facility] 09-06-2023 Miscellaneous Notes The following [...] ONCE DAILY Please review and advise. Jame Hernandze MA documented in this encounter [facility] 08-31-2023 Miscellaneous Notes Called the number on the chart and confirmed with orthotic and prosthetic technician that the medication has been sent as [...] 1 year supply was sent to [facility] pharmacy on 06/02/23. Demetria states that's the problem, all her medications need to go through mail order as her insurance will not cover medications sent to [facility]. Informed her that will send high priority to provider to send short term supply of medication to pharmacy today so it can be picked up and technician terminal and repeater supply to be sent through mail order. Demetria agreeable and verbalized understanding. Please advise Thank you! Please call to review with Demetria the pharmacy issue for patient's Glipizide. She is asking for a call today as the patient has 1 left. documented in this encounter [facility] 06-23-2023 Miscellaneous Notes The following [...] Laura Hay Pss documented in this encounter [facility] 06-03-2023 Miscellaneous Notes Called and left VM. Morro Tomas, Patient Supervisor Wood Room 1st attempt Lvm , will try again [...] like the medication sent to the [facility] Pharm[facility] [address] [place] [id number] Leanne Ding documented in this encounter [facility] 05-12-2023 Miscellaneous Notes 7.6 (03/08/2023) documented in this encounter [facility] 04-28-2023 History of Present illness [...] Care Gap or Scheduling/Wellness visits Payer: Payor: [facility] MEDICARE / Plan: [facility] MEDICARE ADVANTAGE PPO / Product Type: PPO [...] DEPRESSION ASSESSMENT Never done Navigation Signature: Margie Baltazarmarii Rodríguez Pss April 28, 2023 12:52 PM documented in this encounter [facility] 04-20-2023 Miscellaneous Notes Contacted patient's [...] glucometer as needed Authorizing Provider: WILLIE KAUR APRN.CITY BAILIFF Contacted patient's caregiver Demetria who states patient's blood sugar monitor is 10 or more years old and patient's blood sugar read 25, then it read in the 200's when re-checked it right after. Demetria wondering if patient's blood glucose monitor working correctly & if she needs a new one? Please advise Thank you Patient's orthotic and prosthetic technician Demetria calling with a question for a nurse regarding the patient's blood glucose monitor. Please call. TY documented in this encounter [facility] 04-20-2023 Miscellaneous Notes Caregiver made [...] if ok. TY documented in this encounter [facility] 04-13-2023 Instructions Willie Kaur APRN.CNP - 04/13/2023 3:33 PM EDT CONTINUE Actos 45 mg once daily REDUCE DOSE Instead of 1000 mg Metformin twice daily, you should decrease dose to 850 mg twice daily START 2.5 mg Glipizide If you develop dizziness, light headedness, sweating, nausea, shakiness check your blood sugar to see if you are dropping too low documented in this encounter [facility] 04-13-2023 History of Present illness [...] diabetes. Demetria must come to act as chemical research technician, they decline chemical research technician. Patients last HgbA1C was Hemoglobin A1C (%) Date Value 03/08/2023 7.6 10/21/2022 7.5 04/27/2022 7.1 10/12/2021 7.4 09/10/2020 6.7 01/24/2020 6.8 ). Last BP 04/13/23 : 125/63 03/29/23 : 150/71 03/17/23 : 146/67 CKD3 Creatinine Date Value Ref Range Status 03/09/2023 0.92 0.58 - 0.96 mg/dL Final Demetria as chemical research technician Declines [facility] chemical research technician Current Outpatient Medications on File Prior to Visit Medication Sig metFORMIN (GLUCOPHAGE) 1,000 mg tablet Take 1 tablet by mouth twice daily with meals. blood sugar diagnostic (GeoCitiesTOUCH ULTRA TEST) test strip Test blood sugar [...] dependent (NIDDM or type II) ([facility]) - ICD9: 250.00, ICD10: E11.9 [...] diabetes. Demetria must come to act as chemical research technician, they decline chemical research technician. - GLIPIZIDE ER 2.5 MG TABLET, EXTENDED RELEASE 24 HR 2. CKD stage 3 due to type 2 diabetes mellitus (HCC) - ICD9: 250.40, 585.3, ICD10: E11.22, N18.30 - Stable Willie Kaur APRN.DRAKE documented in this encounter [facility] 03-29-2023 Instructions Willie Kaur APRN.DRAKE - 03/29/2023 3:50 PM EDT Check blood sugar once per day Tuesday - check in morning Tuesday - check in evening Tuesday - check in morning Tuesday - check in evening - check in morning Tuesday - check in evening Tuesday - check in morning documented in this encounter [facility] 03-29-2023 History of Present illness Narrative SUBJECTIVE: Yusuf Medina is a 87 year old female who presents for 2 week evaluation and treatment of DM Sister in law Augustin acts as chemical research technician, declines phone chemical research technician 03/17/23 Family Medicine office visit in Law Augustin reported fasting blood sugars [...] BY MOUTH ONCE DAILY blood sugar diagnostic (GeoCitiesTOUCH ULTRA TEST) test strip Test blood sugar [...] months - METFORMIN 1,000 MG TABLET - RelatientUCH ULTRA TEST STRIPS - BASIC METABOLIC PNL 2. Essential hypertension - ICD9: 401.9, ICD10: I10 - Fair control 3. CKD stage 3 due to type 2 diabetes mellitus (HCC) - ICD9: 250.40, 585.3, ICD10: E11.22, N18.30 - Check kidney function one month after increased dose Metformin. Keep close eye on kidney function - BASIC METABOLIC PNL Willie Kaur APRN.DRAKE documented in this encounter [facility] 03-24-2023 Miscellaneous Notes Called caregiver [...] like office to call her back at [phone] as soon as possible. Patient has been identified by name and birthdate. Duration of symptoms: N/A Person calling: caregiver: Demetria Call patient at: at home [phone] (home) [phone] (cell) Was an appointment scheduled: No Closing statement: Results or non-symptom based questions: Thank you for calling [facility], your call will be returned within the next business day. Laura Hay Pss documented in this encounter [facility] 03-22-2023 Miscellaneous Notes Spoke with patient's caregiver, Demetria. Documented in nurse triage encounter from 03/18/23. Patient caregiver called back.She would like a call back at [phone] Thanks Left message to call the office back, may speak with any available triage nurse. Gabbie Melchor RN Demetria is calling on behalf of Yusuf. She has blood sugars readings to give and would like to speak to a nurse with the readings and any changed to meds. Please call her at [phone] documented in this encounter [facility] 03-17-2023 History of Present illness [...] Lymph 1.00 - 4.00 k/uL 0.71 (L) Saunders% % 5.7 Abs Saunders <0.87 k/uL 0.99 (H) Eosin% % 0.7 [...] Demetria prefers to not drive to [facility] [employer] so she will try to reschedule this. - CONSULT TO DIRECTOR ORACLE 3. Leukocytosis, unspecified type - ICD9: 288.60, ICD10: D72.829 - Resolved 4. Type 2 diabetes mellitus with stage 3 chronic kidney disease, without long-term current use of insulin ([facility]) - ICD9: 250.40, 585.3, ICD10: [...] - CONSULT TO PHYSICAL THERAPY Willie Kaur APRN.DRAKE March 17, 2023 2:20 PM documented in this encounter [facility] 03-10-2023 History of Present illness Narrative Noted Willie Kaur APRN.CNP TCM Home Visit Referral Source of Stratification: TCM [facility] Admission Status: Discharged Readmission [...] Network Status: In-Network Discharge Pt discharged from [facility] on 03/09/23. Admitted for: Arthalgia Contact made with patient: Yes Hi my name is Lien Hankins RN and I am calling from the [facility] on behalf of your PCP, [...] like to speak with a social work cafe team member to help give you support [...] I will send your request to a automotive technician who will contact and assist you with [...] Ordered -: No documented in this encounter [facility] 03-07-2023 History of Past i [...] of this encounter (statuses as of 03/10/2023) [facility] History of Past illness Narrative* [...] of this encounter (statuses as of 03/19/2023) [facility] of Past illness Narrative* [...] of this encounter (statuses as of 03/23/2023) [facility] of Past illness Narrative* [...] of this encounter (statuses as of 03/24/2023) [facility] of Past illness Narrative* [...] of this encounter (statuses as of 03/30/2023) [facility] of Past illness Narrative* [...] of this encounter (statuses as of 04/14/2023) [facility] of Past illness Narrative* [...] of this encounter (statuses as of 04/20/2023) [facility] of Past illness Narrative* [...] of this encounter (statuses as of 04/20/2023) [facility] of Past illness Narrative* [...] share their concern. -I spoke with Guillaume Laraa in Social Work and he is going [...] of this encounter (statuses as of 04/28/2023) [facility] of Past illness Narrative* [...] of this encounter (statuses as of 05/16/2023) [facility] of Past illness Narrative* [...] of this encounter (statuses as of 06/15/2023) [facility] of Past illness Narrative* [...] of this encounter (statuses as of 06/23/2023) [facility] of Past illness Narrative* [...] of this encounter (statuses as of 08/31/2023) [facility] Past illness Narrative* [...] of this encounter (statuses as of 09/06/2023) [facility] of Past illness Narrative* [...] of this encounter (statuses as of 10/14/2023) [facility] of Past illness Narrative* [...] of this encounter (statuses as of 01/12/2024) [facility] of Past illness Narrative* Problem Noted Date Diagnosed Date Resolved Date Arthralgia 03/07/2023 03/09/2023 Unable to care for self 03/27/2022 05/1 04/2022 Right arm pain 03/27/2022 03/29/2022 Right leg [...] of this encounter (statuses as of 01/24/2024) [facility] History of Past illness Narrative* [...] of this encounter (statuses as of 02/01/2024) [facility] History of Past illness Narrative* [...] Chronic Pain service -Patient's niece and POCece Chicasie called Dr. Martines on 08/26/2015 to [...] of this encounter (statuses as of 02/01/2024) [facility] History of Past illness Narrative* [...] of this encounter (statuses as of 02/29/2024) [facility]04-11-2023 Miscellaneous Notes* Telephone Encounter - [...] advise. Jame Hernandez MA documented in this encounterUniversity [facility]als [facility]03-[facility]23 Miscellaneous Notes* Telephone Encounter - [...] Allergies: Patient has no known allergies. (home) [phone] (cell) Reason for call: patient needs a refill on the following medications Disp Refills Start End blood sugar diagnostic (ONETOUCH ULTRA BLUE TEST STRIP) test strip 300 Strip 3 2019 Sig: USE DIRECTED TO TEST BLOOD SUGARS 3 TIMES A DAY Sent to pharmacy as: blood sugar diagnostic (ONETOUCH ULTRA BLUE TEST STRIP) test strip Class: Normal Order: [id number] E-Prescribing Status: Receipt confirmed by pharmacy (2019 10:20 AM EST) Please advise and make patient aware Thanks documented in this encounterUniversity [facility]als [facility]02-14-2023 Miscellaneous Notes* Telephone Encounter - [...] advise. Sandrita Christianson LPN documented in this encounterUniversity Hospitals [facility]12-10-2022 History of Present illness Narrative* [...] follow-up. Migdalia Cramer MD documented in this encounterUniversity Hospitals [facility]11-21-2022 Miscellaneous Notes* Telephone Encounter - [...] advise. Sandrita Christianson LPN documented in this encounterUniversity Hospitals [facility]11-17-2022 Miscellaneous Notes* Telephone Encounter - [...] advise. Sandrita Christianson LPN documented in this encounterUniversity Hospitals Ge[facility]10-04-2022 Miscellaneous Notes* Telephone Encounter - [...] only wants 14 days to local [facility] - I made a copy and corrected the amount. Then I entered her request for the mail order going to [facility]. Each is assigned to the correct Pharmacy . Patient aware RX will be sent to pharmacy. Please call Demetria once sent at [phone]. Jodi Smith Pss documented in this encounterUniversity Hospitals Ge[facility] Center07-29-2022 Miscellaneous Notes* Telephone Encounter - [...] note. They should be able to pickle processor a kit form [facility] lab. He also asked them to consider a diagnostic colonoscopy, which is not Cologuard. Willie Kaur APRN.CNP * Telephone Encounter - Sandrita Christianson LPN - 06/10/2022 9:56 AM EDT Fax received from [facility] that pt has not completed Cologuard that was ordered on 04/08/22. Fax scanned into pt's chart (according to chart, pt had diag occult blood exam on 04/27/22) Please advise Thank you documented in this encounterUniversity Hospitals Geaug[facility]07-15-2022 Miscellaneous Notes* Telephone Encounter - [...] she does not have any glipizide left? [employer] then proceeded to ask questions regarding pioglitazone-"is [...] Short term supply of Glipizide to [facility] pharmacy- [address] (pended for provider). * Telephone Encounter - Sandrita Christianson LPN - 05/28/2022 9:24 AM EDT PSS received call from pt's orthotic and prosthetic technician Demetria. Pt informed Demetria that she is [...] will call our office. documented in this encounterUniversity Hospitals Geaug[facility] Center06-25-2022 History of Present illness Narrative* [...] daily meds yet today Pt discharged from on 03/29/22. Admitted for: Pain in arms and legs with elevated white count and urinary tract infection Admitted to 03/23-03/26 and 03/26-03/29 (pain worsened and she [...] BY MOUTH ONCE DAILY blood sugar diagnostic (RelatientUCH ULTRA BLUE TEST STRIP) test strip USE [...] Augustin Migdalia Cramer MD documented in this encounterUniversity Hospitals Geauga Medical Center06-14-2022 History of Present illness Narrative* [...] in patient's care. Summary: Pt discharged from on 03/29/22. Admitted for: Pain in arms and legs with elevated white count and urinary tract infection Concerns: No concerns at this time. Panel Gluer plan for next outreach: No further follow up needed at this time. TCM outreach complete. Signature Katia Farooq RN April 27, 2022 documented in this encounterUniversity Hospitals Geaug[facility] Center06-14-2022 Evaluation note* Diagnosis Hypertensive kidney disease with stage 3 chronic kidney disease, unspecified whether stage 3a or 3b CKD (HCC)- Primary documented in this encounter [facility]06-13-2022 Miscellaneous Notes* Telephone Encounter - [...] 4:28 PM EDT Call placed to pt's orthotic and prosthetic technician, Demetria. Informed her of the 2 blood work orders to have completed, & that pt can give urine sample at [facility] when she goes for lab draw. Demetria also confirmed that they Did pickle processor IFOBT but pt Having trouble going to [...] Tamayo PA-C * [facility] En[facility] [place] 04/26/2022 9:37 AM EDT Patient caregiver Demetria calling to ask about the lab order in patient chart regarding the follow up urine. She states patient received a bottle for her to hand carry her urine, is that correct? Or is it to be done when she arrives at the [facility]? And exactly which labs are to be done forscheduling? Demetria states when patient came in for labs she was told there were no orders and she does not want that to happen again. Call caregiver Demetria to discuss at [phone] Electronically signed by [facility] at 04/26/2022 9:42 AM EDT documented in this encounterUniversity Hospitals Geauga [facility] Center05-26-2022 Miscellaneous Notes* Telephone Encounter - Sandrita Christianson LPN - 04/08/2022 1:25 PM EDT Pt's POA/orthotic and prosthetic technician Demetria notified & had no questions/concerns. * Telephone Encounter - Willie Kaur APRN.CNP - 04/08/2022 11:47 AM EDT Please notify patient that Cologuard has been ordered and Cologu[facility] [employer] [facility]. Willie Kaur APRN.CNP * Telephone Encounter - Yeimy Dubon - 04/08/2022 10:37 AM EDT Patient's orthotic and prosthetic technician, Demetria is calling requesting the Cologuard kit. She is asking for the kit or prescription for the kit. Please return call at [phone] documented in this encounterUniversity Hospitals Geauga Medical Center05-21-2022 Instructions* Patient Instructions* Migdalia Cramer [...] of March. Consider colonoscopy. documented in this encounterUniversity Hospitals Geauga Medical Center05-21-2022 History of Present illness Narrative* [...] review completed Yes SUMMARY: Pt discharged from on 03/29/22. Admitted for: Pain in arms and legs with elevated white count and urinary tract infection Admitted to 03/23-03/26 and 03/26-03/29 (pain worsened and she [...] BY MOUTH ONCE DAILY blood sugar diagnostic (AppSame ULTRA BLUE TEST STRIP) test strip USE [...] of the right femoral acetabular joint with [id number]-[id number] contact, subchondral sclerosis and marginal osteophytosis. Left [...] dependent (NIDDM or type II) ([facility]) (D50.9) Iron deficiency anemia, unspecified [...] 04/03/2022 8:06 AM EDT documented in this encounterUniversity Hospitals Geauga [facility] Center05-17-2022 Miscellaneous Notes* Telephone Encounter - [...] up Willie Kaur APRN.CNP documented in this encounterUniversity Hospitals Geauga Medical Center05-17-2022 Miscellaneous Notes* Telephone Encounter - Willie Kaur APRN.CNP - 03/30/2022 10:53 AM EDT Noted and agree with OV Willie Kaur APRN.CNP * Telephone Encounter - Magnolia Johnson RN - 03/30/2022 10:17 AM EDT Spoke with patients day care aide Demetria. She had questions for the doctor [...] pain (volearen gel and lidocaine patches) and day care aide is not sure how long she should be using those (advised for now to continue until follow up appointment) Offered several appointments this week but her day care aide Demetria is having trouble getting her to [...] Assessment Questions Recently in the hospital. Pt day care aide wanted a follow up to discuss med changes and how to help with her pain more technician terminal and repeater. Protocols used: INFORMATION ONLY CALL - NO [id number] * Telephone Encounter - ZANA Buck - 03/30/2022 9:16 AM EDT This morning Yusuf caregiver called with some concerns . She has had the patient in the ER two times in the last few days. She is experiencing all over painand would like more suggestions on how to help the patient . Please Advise Thanks documented in this encounterUniversity Hospitals Geauga Medical Center05-14-2022 History of Past illness Narrative* [...] of this encounter (statuses as of 03/30/2022) [facility] of Past illness Narrative* [...] of this encounter (statuses as of 03/30/2022) [facility] of Past illness Narrative* [...] of this encounter (statuses as of 04/03/2022) [facility] of Past illness Narrative* [...] of this encounter (statuses as of 04/08/2022) [facility] of Past illness Narrative* [...] of this encounter (statuses as of 04/26/2022) [facility] of Past illness Narrative* [...] of this encounter (statuses as of 04/27/2022) [facility] of Past illness Narrative* [...] of this encounter (statuses as of 05/08/2022) [facility] of Past illness Narrative* [...] of this encounter (statuses as of 05/28/2022) [facility] of Past illness Narrative* [...] of this encounter (statuses as of 06/11/2022) [facility] of Past illness Narrative* [...] of this encounter (statuses as of 08/18/2022) [facility] History of Past illness Narrative* [...] of this encounter (statuses as of 09/30/2022) [facility] of Past illness Narrative* [...] of this encounter (statuses as of 10/04/2022) [facility] of Past illness Narrative* [...] of this encounter (statuses as of 11/15/2022) [facility] of Past illness Narrative* [...] of this encounter (statuses as of 12/28/2022) [facility] of Past illness Narrative* [...] of this encounter (statuses as of 01/20/2023) [facility] of Past illness Narrative* [...] of this encounter (statuses as of 02/22/2023) [facility] Miscellaneous Notes* Telephone Encounter - [...] Please advise. Aditi Perez documented in this encounterUniversity Hospitals Geauga Medical Center05-09-2022 Miscellaneous Notes* Telephone Encounter - Willie Kaur APRN.CNP - 03/22/2022 10:16 AM EDT 04/29/22 The following approved medication requests have [...] and advise. Sangita Herring documented in this encounterUniversity Hospitals Geauga Medical Center04-15-2022 Miscellaneous Notes* Telephone Encounter - [...] KAUR APRN.CNP * Telephone Encounter - Tyesha Perez - 02/25/2022 3:33 PM EDT Patient's caregiver, Mercedes, stated she tried to refill patient's meloxicam, but [facility] told her itwas discontinued. Epic shows as discontinued. Please review and advise at [phone]. documented in this encounterUniversity Hospitals Geauga Medical Center02-22-2022 Miscellaneous Notes* Telephone Encounter - [...] a 30 day supply sent to the [facility] of the glipizide RX INSTRUCTIONS: Patient requesting a call when RX is approved and sent to the pharmacy. Please call patient's orthotic and prosthetic technician at [phone] Daniel Holder documented in this encounterUniversity Hospitals Geauga Medical Center01-24-2022 NoteDow care referral received for patient. Attempted to reach via telephone, however no answer. Voicemail left for return call. [facility]01-21-2022 [facility] CONSULTATION CAROL YUSUF CCE [id number] ICU NIGHAT PENNY MD [id number] REFERRING PHYSICIAN: CONSULTING PHYSICIAN: Gertrudis Beckford DO DATE OF CONSULTATION: 12/04/2021 CHIEF COMPLAINT: Status post fall. HISTORY OF PRESENT ILLNESS: This 85-year-old [place] woman was taking care of her 16 [...] 2 diabetes. 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 She had fallen. It is unknown [...] br/min (DEC 04:) SBP 126 mmHg (DEC 04:55) DBP L 48mmHg (DEC 04:) General: alert, [...] levels of other ser (more content not included)...[facility]01-20-2022 NotePatient: YUSUF MEDINA Age: 85 years Sex: Female : 1935 Associated Diagnoses: None Author: JESÚS CLAIRE MD Basic Information Time seen: Date & [...] unknown mechanism, hypothermia Plan: warm, CT eval [facility]08-31-2021 History of Present illness Narrative* Giovanny [...] 14, 2021 9:01 AM documented in this encounterUniversity Hospitals Geauga [facility] Center07-12-2017 History of Past illness Narrative* [...] of this encounter (statuses as of 02/18/2022) [facility] History of Past illness Narrative* [...] of this encounter (statuses as of 02/26/2022) [facility] History of Past illness Narrative* [...] of this encounter (statuses as of 03/22/2022) [facility] History of Past illness Narrative* [...] of this encounter (statuses as of 03/25/2022) [facility]* Diagnosis Type 2 diabetes mellitus with stage 3 chronic kidney disease, without long-term current use of insulin (HCC) DDD (degenerative disc disease), cervical Degeneration of cervical intervertebral disc documented in this encounter [facility]* Diagnosis DDD (degenerative disc disease), cervical Degeneration of cervical intervertebral disc [facility] Essential hypertension Unspecified essential hypertension [facility] Diagnosis Acute cystitis without hematuria- [...] not elsewhere classified documented in this encounter [facility]* Diagnosis Screening for colon cancer- Primary Special screening for malignant neoplasms, colon documented in this encounter [facility]* Diagnosis Iron deficiency anemia, unspecified iron deficiency anemia type- Primary [facility] Diagnosis Iron deficiency anemia, unspecified [...] kidney disease (HCC) [facility] Diagnosis Gastroesophageal reflux disease without esophagitis Esophageal reflux [facility] Diagnosis Type 2 diabetes mellitus with stage 3 chronic kidney disease, without long-term current use of insulin (HCC) [facility] II) (HCC)- Primary [facility] Diagnosis Essential hypertension Unspecified essential hypertension [facility] Diagnosis Pain in both hands- Primary Pain in both wrists Pain in joint, forearm Leukocytosis, unspecified type Type 2 diabetes mellitus with stage 3 chronic kidney disease, without long-term current use of insulin, unspecified whether stage 3a or 3b CKD (HCC) Muscular deconditioning Muscular wasting and disuse atrophy, not elsewhere classified [facility] Diagnosis Diabetes mellitus, non-insulin dependent (NIDDM or type II) (HCC)- Primary Essential hypertension Unspecified essential hypertension CKD stage 3 due to type 2 diabetes mellitus (HCC) [facility] Diagnosis Diabetes mellitus, non-insulin dependent (NIDDM or type II) (HCC)- Primary CKD stage 3 due to type 2 diabetes mellitus (HCC) [facility] Diagnosis Diabetes mellitus, non-insulin dependent (NIDDM or type II) (HCC) [facility] Diagnosis Diabetes mellitus, non-insulin dependent (NIDDM or type II) (HCC) [facility] [facility]* Diagnosis Gastroesophageal reflux disease without esophagitis Esophageal reflux documented in this encounter [facility] note* Diagnosis Diabetes mellitus, non-insulin dependent (NIDDM or type II) (HCC)- Primary documented in this encounter [facility] note* Diagnosis Diabetes mellitus, non-insulin dependent (NIDDM or type II) (HCC) documented in this encounter [facility] note* Diagnosis Essential hypertension Unspecified essential hypertension [facility] Diagnosis Essential hypertension Unspecified essential hypertension documented in this encounter [facility] note* Diagnosis Gastroesophageal reflux disease without esophagitis Esophageal reflux [facility] Diagnosis Diabetes mellitus, non-insulin dependent (NIDDM or type II) (HCC)- Primary Hyperlipidemia associated with type 2 diabetes mellitus (HCC) ([facility]) Essential hypertension Unspecified essential hypertension documented in this encounter [facility] note* Diagnosis Type 2 diabetes mellitus without retinopathy (HCC)- Primary Type II or unspecified type diabetes mellitus without mention of complication, not stated as uncontrolled Pseudophakia Lens replaced by other means documented in this encounter [facility] note* Diagnosis Type 2 diabetes mellitus with stage 3 chronic kidney disease, without long-term current use of insulin (HCC) documented in this encounter [facility] note* Diagnosis Diabetes mellitus, non-insulin dependent (NIDDM or type II) (HCC) documented in this encounter [facility] note* Diagnosis Essential hypertension- Primary Unspecified essential [...] deficiency anemia type [facility] Diagnosis Essential hypertension Unspecified essential hypertension [facility]* Diagnosis Generalized weakness- Primary Other malaise and fatigue Headache, unspecified headache type Leukocytosis, unspecified type CKD stage 3 due to type 2 diabetes mellitus (HCC) Normocytic anemia Anemia, unspecified Essential hypertension Unspecified essential hypertension Insomnia Insomnia, unspecified Arthralgia, unspecified joint [facility] Diagnosis Pain Generalized pain [facility]* Diagnosis Leukocytosis, unspecified type- Primary [facility]* Diagnosis Right ankle swelling Effusion of ankle and foot joint [facility]* Diagnosis Right ankle swelling- Primary Effusion of ankle and foot joint Closed nondisplaced fracture of right calcaneus, unspecified portion of calcaneus, initial encounter [facility] Diagnosis Right ankle swelling Effusion of ankle and foot joint [facility] Diagnosis Pain in joint involving right ankle and foot [facility]* Diagnosis Right ankle swelling Effusion of ankle and foot joint Closed nondisplaced fracture of right calcaneus, unspecified portion of calcaneus, initial encounter [facility]* Diagnosis Leukocytosis, unspecified type- Primary Normocytic anemia Anemia, unspecified Right ankle swelling Effusion of ankle and foot joint Right ankle swelling Effusion of ankle and foot joint Right ankle swelling Effusion of ankle and foot joint [facility] Diagnosis Medicare annual wellness [...] Leukocytosis, unspecified type [facility] Diagnosis Right ankle swelling- Primary Effusion of ankle and foot joint Chronic pain of right ankle [facility] Diagnosis Right ankle swelling Effusion of ankle and foot joint [facility] Diagnosis Chronic pain of right ankle- Primary [facility]* Diagnosis Normocytic anemia- Primary Anemia, unspecified Leukocytosis, unspecified type [facility] Diagnosis Chronic pain of right ankle [facility] Diagnosis Essential hypertension Unspecified essential hypertension documented in this encounter [facility] note* Diagnosis 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)- Primary Ulcer of ankle documented in this encounter [facility] note* Diagnosis Pseudogout- Primary Other disorder of calcium metabolism Ankle swelling, right Medication monitoring encounter Encounter for therapeutic drug monitoring documented in this encounter [facility] note* Diagnosis Non-pressure chronic ulcer of [...] kidney disease (HCC) documented in this encounter [facility] note* Diagnosis Pressure injury of right ankle, stage 3 (HCC)- Primary [facility]* Diagnosis Hyperlipidemia with target LDL less than 100 Other and unspecified hyperlipidemia [facility]* Diagnosis Leukocytosis, unspecified type- Primary Normocytic anemia Anemia, unspecified Vitamin B6 deficiency Cellulitis of right ankle documented in this encounter [facility] noteNo assessment information availableWKettering Health [facility] Work Phone: Evaluation note* Diagnosis 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)- Primary Ulcer of ankle documented in this encounter [facility] note* Diagnosis Abnormal finding of diagnostic imaging- Primary Other nonspecific (abnormal) findings on radiological and other examinations of body structure documented in this encounter [facility] for referral (narrative)* Diagnostic Procedure Only (Routine) - Closed Specialty Diagnoses / Procedures Referred By Contac t Referred To Contact XR IMAGING Diagnoses Pain Procedures XR SHOULDER GENERAL 3V OR MORE AP/TRUE AP/OTHER LT X-RAY SHOULDER COMPLET [place] 2 [place] [address] [place] [address] [place] [address] Referral ID Status Reason Start Date Expiration Date V isits Requested Visits Authorized Closed Auto-Generate d Referral 07/09/2021 08/08/2022 1 1 T [facility] for referral (narrative)* Diagnostic Procedure Only (Routine) - Closed Specialty Diagnoses / Procedures Referred By Contac t Referred To Contact XR IMAGING Diagnoses Right ankle swelling Procedures XR ANKLE GENERAL 3V AP/LAT/OBL RIGHT RADEX ANKLE COMPLETE MINIMUM 3 [place] [address] [address] [place] [phone] [place] [address] Referral ID Status Reason Start Date Expiration Date V isits Requested Visits Authorized [id number] Closed Auto-Generate d Referral 09/17/2024 10/17/2025 1 1 [facility] for referral (narrative)* Diagnostic Procedure Only (Urgent) - Closed Specialty Diagnoses / Procedures Referred By Contac t Referred To Contact US IMAGING Diagnoses Right ankle swelling Procedures US DVT LOWER RIGHT DUP-SCAN XTR VEINS UNILATERAL/[place] [address] [address] [phone] [place] [address] Referral ID Status Reason Start Date Expiration Date V isits Requested Visits Authorized [id number] Closed Auto-Generate d Referral 09/18/2024 10/17/2025 1 1 [facility] for referral (narrative)* Diagnostic Procedure Only (Routine) - Closed Specialty Diagnoses / Procedures Referred By Contac t Referred To Contact XR IMAGING Diagnoses Right ankle swelling Procedures XR ANKLE GENERAL 3V AP/LAT/OBL RIGHT RADEX ANKLE COMPLETE MINIMUM 3 [place] [address] [address] [phone] [place] [address] Referral ID Status Reason Start Date Expiration Date V isits Requested Visits Authorized [id number] Closed Auto-Generate d Referral 09/17/2024 10/17/2025 1 1 * Diagnostic Procedure Only (Urgent) - Closed Specialty Diagnoses / Procedures Referred By Contac t Referred To Contact US IMAGING Diagnoses Right ankle swelling Procedures US DVT LOWER RIGHT DUP-SCAN XTR VEINS UNILATERAL/[place] [address] [address] [phone] [place] [address] Referral ID Status Reason Start Date Expiration Date V isits Requested Visits Authorized [id number] Closed Auto-Generate d Referral 09/18/2024 10/17/2025 1 1 [facility])No reason for referral information availableWKettering Health [facility] Work Phone: Reason for visit Narrative* Diagnostic Procedure Only (Routine) - Closed Specialty Diagnoses / Procedures Referred By Contac t Referred To Contact XR IMAGING Diagnoses Pain in joint involving right ankle and foot Procedures XR CALCANEUS 2V AXIAL/LAT RIGHT RADEX CALCANEUS MINIMUM 2 VIEWS Simone Kevin MD [address] [place] [address] [place] [address] Referral ID Status Reason Start Date Expiration Date V isits Requested Visits Authorized [id number] Closed Auto-Generate d Referral 09/19/2024 10/19/2025 1 1 [facility] Summary Purpose Family History No Family History Records FoundNo Family History Records FoundNo Family History Records FoundNo Family History Records Found Advance Directives No Advanced Directives Records FoundDocuments on File Type Date Recorded Patient [employer] Expl anation Advance Directive(s) 2024 10:00 AM [...] Documents on File Type Date Recorded Patient [employer] Expl anation Advance Directive(s) 08/28/2015 9:03 PM Date Activated Date Inactivated Comments 03/07/2023 4:44 AM 03/09/2023 7:53 PM Date Activated Date Inactivated Comments 03/24/2022 3:23 PM 03/26/2022 7:51 PM Latest Code Status on File Code Status Date Activated Date Inactivated Comments Full Code 03/24/2022 3:23 PM 03/26/2022 7:51 PM Full Code Order Discussed With: Patient Documents on File Type Date Recorded Patient [employer]er Expl anation Advance Directive(s) Advance Directive(s) 05/19/2020 10:04 PM Advance Directive(s) 03/11/2017 1:34 PM Advance Directive(s) 12/10/2016 5:24 PM Advance Directive(s) 04/17/2016 11:22 AM Advance Directive(s) 08/28/2015 9:03 PM Documents on File Type Date Recorded Patient [employer]er Expl anation Advance Directive(s) Advance Directive(s) 03/23/2022 11:09 PM Advance Directive(s) 05/19/2020 10:04 PM Advance Directive(s) 03/11/2017 1:34 PM Advance Directive(s) 12/10/2016 5:24 PM Advance Directive(s) 04/17/2016 11:22 AM Advance Directive(s) 08/28/2015 9:03 PM Latest Code Status on File Code Status Date Activated Date Inactivated Comments Full Code 03/24/2022 3:23 PM Documents on File Type Date Recorded Patient [employer]er Expl anation Advance Directive(s) Advance Directive(s) 03/27/2022 12:20 AM Advance Directive(s) 03/23/2022 11:09 PM Advance Directive(s) 05/19/2020 10:04 PM Advance Directive(s) 03/11/2017 1:34 PM Advance Directive(s) 12/10/2016 5:24 PM Advance Directive(s) 04/17/2016 11:22 AM Advance Directive(s) 08/28/2015 9:03 PM Documents on File Type Date Recorded Patient [employer]er Expl anation Advance Directive(s) 08/28/2015 9:03 PM [...] Documents on File Type Date Recorded Patient [employer]er Expl anation Advance Directive(s) 2024 10:00 AM [...] diabetic retinopathy Procedures CONSULT TO OPHTHALMOLOGY OFFICE/OUTPATIENT [facility] MDM 60-[place] [address] [place] [phone] Referral ID Status Reason Start Date Expiration Date Visits Requested Visits Authorized [id number] Pending Review PCP Requested Referral 2 10/23/2023 1 1 Specialty Diagnoses / Procedures Referred By Contac t Referred To Contact [facility] Diagnoses Muscular deconditioning Procedures CONSULT TO PHYSICAL THERAPY PHYSICAL THERAPY EVALUATION HIGH COMPLEX 45 MINS [place], [employer]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.[employer] [address] [phone] [facility] [address] [address] Referral ID Status Reason Start Date Expiration Date Visits Requested Visits Authorized [id number] Pending Review Auto-Generat ed Referral 03/17/2023 03/16/2024 1 1 Specialty Diagnoses / Procedures Referred By Contac t Referred To Contact [facility] Diagnoses Pain in both hands Pain in both wrists Procedures CONSULT TO DIRECTOR ORACLE OCCUPATIONAL THERAPY EVAL HIGH COMPLEX 60 MINS [place]ie, 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.C[employer]IFF [address] [place] [phone] [facility] [address] [address] Referral ID Status Reason Start Date Expiration Date Visits Requested Visits Authorized [id number] Pending Review Auto-Generat ed Referral 03/17/2023 03/16/2024 1 1 Specialty Diagnoses / Procedures Referred By Contac t Referred To Contact Diagnoses Leukocytosis, unspecified type Procedures CONSULT TO HEMATOLOGY/ONCOLOGY OFFICE/OUTPATIENT [facility] 60 [place] [address] [place] [phone] Referral ID Status Reason Start Date Expiration Date Visits Requested Visits Authorized [id number] Authorized PCP Requested Referral 09/04/2025 1 1 Specialty Diagnoses / Procedures Referred By Contac t Referred To Contact Orthopedics Diagnoses Right ankle swelling Closed nondisplaced fracture of right calcaneus, unspecified portion of calcaneus, initial encounter Procedures CONSULT PANEL TO ORTHOPAEDICS OFFICE/OUTPATIENT [facility] [address] [place] [address] [place] [address] Referral ID Status Reason Start Date Expiration Date Visits Requested Visits Authorized [id number] Authorized PCP Requested Referral 09/18/2024 09/18/2025 1 1 Specialty Diagnoses / Procedures Referred By Contac t Referred To Contact MR IMAGING Diagnoses Chronic pain of right ankle Procedures MRI ANKLE WO IVCON RIGHT MRI ANY JT LOWER EXTREM W/O CONTRAST MATRL Simone Kevin MD [address] [id number] Mr Imaging [facility]95 Referral ID Status Reason Start Date Expiration Date Visits Requested Visits Authorized [id number] Authorized Auto-Generat ed Referral 12/01/2025 1 1 Specialty Diagnoses / Procedures Referred By Contac t Referred To Contact XR IMAGING Diagnoses Right ankle swelling Procedures XR FOOT GENERAL 3V AP/LAT/OBL RIGHT RADEX FOOT COMPLETE MINIMUM 3 VIEWS Simone Kevin MD [address] [phone] Xr Imaging [facility]95 Referral ID Status Reason Start Date Expiration Date V isits Requested Visits Authorized [id number] Closed Auto-Generate d Referral 11/01/2024 12/01/2025 1 1 Specialty Diagnoses / Procedures Referred By Contac t Referred To Contact XR IMAGING Diagnoses Right ankle swelling Procedures XR ANKLE GENERAL 3V AP/LAT/OBL RIGHT RADEX ANKLE COMPLETE MINIMUM 3 VIEWS Simone Kevin MD [address] [place] [phone] Xr Imaging [facility] Referral ID Status Reason Start Date Expiration Date V isits Requested Visits Authorized [id number] Closed Auto-Generate d Referral 11/01/2024 12/01/2025 1 1 Referral ID Status Reason Start Date Expiration Date V isits Requested Visits Authorized [id number] Closed Auto-Generate d Referral 11/01/2024 12/01/2025 1 1 Chief Complaint and Reason for Visit Chief Complaint Admit Date LAB WORK December 17, 2024 4 :00am LAB WORK December 24, 2024 4:00am LABWORK 2024 5:00am LABWORK January 07, 2025 5:00am [facility] LAB WORK January 15, 2025 5: 00am Chief Complaint Admit Date LAB WORK December 17, 2024 4 :00am LAB WORK December 24, 2024 4:00am LABWORK 2024 5:00am LABWORK January 07, 2025 5:00am [facility] LAB WORK January 15, 2025 5: 00am [facility] LAB WORK February 04, 2025 5 :00am Chief Complaint Admit Date LAB WORK December 17, 2024 4 :00am LAB WORK December 24, 2024 4:00am LABWORK 2024 5:00am LABWORK January 07, 2025 5:00am [facility] LAB WORK January 15, 2025 5: 00am [facility] LAB WORK February 04, 2025 5 :00am [facility] LAB WORK March 04, 2025 5 :00am Chief Complaint Admit Date LAB WORK December 24, 2024 4:00am LABWORK 2024 5:00am LABWORK January 07, 2025 5:00am [facility] LAB WORK January 15, 2025 5: 00am [facility] LAB WORK February 04, 2025 5 :00am [facility] LAB WORK March 04, 2025 5 :00am [facility] LAB WORK March 12, 2025 4 :00am LABWORK April 01, 2025 5:00a m Chief Complaint Admit Date LAB WORK December 24, 2024 4:00am LABWORK 2024 5:00am LABWORK January 07, 2025 5:00am [facility] LAB WORK January 15, 2025 5: 00am [facility] LAB WORK February 04, 2025 5 :00am [facility] LAB WORK March 04, 2025 5 :00am [facility] LAB WORK March 12, 2025 4 :00am Chief Complaint Admit Date LABWORK April 26, 2025 5:00 am [facility] LAB WORK April 29, 2025 4: 00am [facility] LAB WORK May 27, 2025 4: 00am [facility] LAB WORK June 04, 2025 5: 00am LABWORK June 20, 2025 2:0 0am [facility] LAB WORK June 24, 2025 4:00am [facility] LAB WORK July 22 5:00am LABWORK July 31, 2025 5:00am Additional Source Comments INFORMATION SOURCE (unrecogn ized section and content) DATE CREATED AUTHOR 12/10/2021 [facility] DATE CREATED AUTHOR AUTHOR'S ORGANIZ ATION 02/16/2025 DATE CREATED AUTHOR AUTHOR'S ORGANIZ ATION 07/07/2025 [facility] DATE CREATED AUTHOR AUTHOR'S ORGANIZ ATION 09/19/2025 [facility] Source Comments (unrecognize d section and content) In the event this informatio n is protected by the Federal Confidentiality of Alcohol and Drug Abuse Patient Records regulations: The Federal rules restrict any use of the information to criminally investigate or prosecute any alcohol or drug abuse patient.[facility] Center[facility] the event this information is protected by the Federal Confidentiality of Alcohol and Drug Abuse Patient Records regulations: The Federal rules restrict any use of the information to criminally investigate or prosecute any alcohol or drug abuse patient.[facility] Center[facility] the event this information is protected by the Federal Confidentiality of Alcohol and Drug Abuse Patient Records regulations: The Federal rules restrict any use of the information to criminally investigate or prosecute any alcohol or drug abuse patient.[facility] CenterIn the event this information is protected by the Federal Confidentiality of Alcohol and Drug Abuse Patient Records regulations: The Federal rules restrict any use of the information to criminally investigate or prosecute any alcohol or drug abuse patient.[facility] CenterIn the event this information is protected by the Federal Confidentiality of Alcohol and Drug Abuse Patient Records regulations: The Federal rules restrict any use of the information to criminally investigate or prosecute any alcohol or drug abuse patient.[facility] CenterIn the event this information is protected by the Federal Confidentiality of Alcohol and Drug Abuse Patient Records regulations: The Federal rules restrict any use of the information to criminally investigate or prosecute any alcohol or drug abuse patient.[facility] CenterIn the event this information is protected by the Federal Confidentiality of Alcohol and Drug Abuse Patient Records regulations: The Federal rules restrict any use of the information to criminally investigate or prosecute any alcohol or drug abuse patient.[facility] CenterIn the event this information is protected by the Federal Confidentiality of Alcohol and Drug Abuse Patient Records regulations: The Federal rules restrict any use of the information to criminally investigate or prosecute any alcohol or drug abuse patient.[facility] CenterIn the event this information is protected by the Federal Confidentiality of Alcohol and Drug Abuse Patient Records regulations: The Federal rules restrict any use of the information to criminally investigate or prosecute any alcohol or drug abuse patient.[facility] CenterIn the event this information is protected by the Federal Confidentiality of Alcohol and Drug Abuse Patient Records regulations: The Federal rules restrict any use of the information to criminally investigate or prosecute any alcohol or drug abuse patient.[facility] CenterIn the event this information is protected by the Federal Confidentiality of Alcohol and Drug Abuse Patient Records regulations: The Federal rules restrict any use of the information to criminally investigate or prosecute any alcohol or drug abuse patient.[facility] CenterIn the event this information is protected by the Federal Confidentiality of Alcohol and Drug Abuse Patient Records regulations: The Federal rules restrict any use of the information to criminally investigate or prosecute any alcohol or drug abuse patient.[facility] CenterIn the event this information is protected by the Federal Confidentiality of Alcohol and Drug Abuse Patient Records regulations: The Federal rules restrict any use of the information to criminally investigate or prosecute any alcohol or drug abuse patient.[facility] CenterIn the event this information is protected by the Federal Confidentiality of Alcohol and Drug Abuse Patient Records regulations: The Federal rules restrict any use of the information to criminally investigate or prosecute any alcohol or drug abuse patient.[facility] CenterIn the event this information is protected by the Federal Confidentiality of Alcohol and Drug Abuse Patient Records regulations: The Federal rules restrict any use of the information to criminally investigate or prosecute any alcohol or drug abuse patient.[facility] CenterIn the event this information is protected by the Federal Confidentiality of Alcohol and Drug Abuse Patient Records regulations: The Federal rules restrict any use of the information to criminally investigate or prosecute any alcohol or drug abuse patient.[facility] CenterIn the event this information is protected by the Federal Confidentiality of Alcohol and Drug Abuse Patient Records regulations: The Federal rules restrict any use of the information to criminally investigate or prosecute any alcohol or drug abuse patient.[facility] CenterIn the event this information is protected by the Federal Confidentiality of Alcohol and Drug Abuse Patient Records regulations: The Federal rules restrict any use of the information to criminally investigate or prosecute any alcohol or drug abuse patient.[facility] CenterIn the event this information is protected by the Federal Confidentiality of Alcohol and Drug Abuse Patient Records regulations: The Federal rules restrict any use of the information to criminally investigate or prosecute any alcohol or drug abuse patient.[facility] CenterIn the event this information is protected by the Federal Confidentiality of Alcohol and Drug Abuse Patient Records regulations: The Federal rules restrict any use of the information to criminally investigate or prosecute any alcohol or drug abuse patient.[facility] CenterIn the event this information is protected by the Federal Confidentiality of Alcohol and Drug Abuse Patient Records regulations: The Federal rules restrict any use of the information to criminally investigate or prosecute any alcohol or drug abuse patient.[facility] CenterIn the event this information is protected by the Federal Confidentiality of Alcohol and Drug Abuse Patient Records regulations: The Federal rules restrict any use of the information to criminally investigate or prosecute any alcohol or drug abuse patient.[facility] CenterIn the event this information is protected by the Federal Confidentiality of Alcohol and Drug Abuse Patient Records regulations: The Federal rules restrict any use of the information to criminally investigate or prosecute any alcohol or drug abuse patient.[facility] CenterIn the event this information is protected by the Federal Confidentiality of Alcohol and Drug Abuse Patient Records regulations: The Federal rules restrict any use of the information to criminally investigate or prosecute any alcohol or drug abuse patient.[facility] CenterIn the event this information is protected by the Federal Confidentiality of Alcohol and Drug Abuse Patient Records regulations: The Federal rules restrict any use of the information to criminally investigate or prosecute any alcohol or drug abuse patient.[facility] CenterIn the event this information is protected by the Federal Confidentiality of Alcohol and Drug Abuse Patient Records regulations: The Federal rules restrict any use of the information to criminally investigate or prosecute any alcohol or drug abuse patient.[facility] CenterIn the event this information is protected by the Federal Confidentiality of Alcohol and Drug Abuse Patient Records regulations: The Federal rules restrict any use of the information to criminally investigate or prosecute any alcohol or drug abuse patient.[facility] CenterIn the event this information is protected by the Federal Confidentiality of Alcohol and Drug Abuse Patient Records regulations: The Federal rules restrict any use of the information to criminally investigate or prosecute any alcohol or drug abuse patient.[facility] CenterIn the event this information is protected by the Federal Confidentiality of Alcohol and Drug Abuse Patient Records regulations: The Federal rules restrict any use of the information to criminally investigate or prosecute any alcohol or drug abuse patient.[facility] CenterIn the event this information is protected by the Federal Confidentiality of Alcohol and Drug Abuse Patient Records regulations: The Federal rules restrict any use of the information to criminally investigate or prosecute any alcohol or drug abuse patient.[facility] CenterIn the event this information is protected by the Federal Confidentiality of Alcohol and Drug Abuse Patient Records regulations: The Federal rules restrict any use of the information to criminally investigate or prosecute any alcohol or drug abuse patient.[facility] CenterIn the event this information is protected by the Federal Confidentiality of Alcohol and Drug Abuse Patient Records regulations: The Federal rules restrict any use of the information to criminally investigate or prosecute any alcohol or drug abuse patient.[facility] CenterIn the event this information is protected by the Federal Confidentiality of Alcohol and Drug Abuse Patient Records regulations: The Federal rules restrict any use of the information to criminally investigate or prosecute any alcohol or drug abuse patient.[facility] CenterIn the event this information is protected by the Federal Confidentiality of Alcohol and Drug Abuse Patient Records regulations: The Federal rules restrict any use of the information to criminally investigate or prosecute any alcohol or drug abuse patient.[facility] CenterIn the event this information is protected by the Federal Confidentiality of Alcohol and Drug Abuse Patient Records regulations: The Federal rules restrict any use of the information to criminally investigate or prosecute any alcohol or drug abuse patient.[facility] CenterIn the event this information is protected by the Federal Confidentiality of Alcohol and Drug Abuse Patient Records regulations: The Federal rules restrict any use of the information to criminally investigate or prosecute any alcohol or drug abuse patient.[facility] CenterIn the event this information is protected by the Federal Confidentiality of Alcohol and Drug Abuse Patient Records regulations: The Federal rules restrict any use of the information to criminally investigate or prosecute any alcohol or drug abuse patient.[facility] CenterIn the event this information is protected by the Federal Confidentiality of Alcohol and Drug Abuse Patient Records regulations: The Federal rules restrict any use of the information to criminally investigate or prosecute any alcohol or drug abuse patient.[facility] CenterIn the event this information is protected by the Federal Confidentiality of Alcohol and Drug Abuse Patient Records regulations: The Federal rules restrict any use of the information to criminally investigate or prosecute any alcohol or drug abuse patient.[facility] CenterIn the event this information is protected by the Federal Confidentiality of Alcohol and Drug Abuse Patient Records regulations: The Federal rules restrict any use of the information to criminally investigate or prosecute any alcohol or drug abuse patient.[facility] CenterIn the event this information is protected by the Federal Confidentiality of Alcohol and Drug Abuse Patient Records regulations: The Federal rules restrict any use of the information to criminally investigate or prosecute any alcohol or drug abuse patient.[facility] CenterIn the event this information is protected by the Federal Confidentiality of Alcohol and Drug Abuse Patient Records regulations: The Federal rules restrict any use of the information to criminally investigate or prosecute any alcohol or drug abuse patient.[facility] CenterIn the event this information is protected by the Federal Confidentiality of Alcohol and Drug Abuse Patient Records regulations: The Federal rules restrict any use of the information to criminally investigate or prosecute any alcohol or drug abuse patient.[facility] CenterIn the event this information is protected by the Federal Confidentiality of Alcohol and Drug Abuse Patient Records regulations: The Federal rules restrict any use of the information to criminally investigate or prosecute any alcohol or drug abuse patient.[facility] CenterIn the event this information is protected by the Federal Confidentiality of Alcohol and Drug Abuse Patient Records regulations: The Federal rules restrict any use of the information to criminally investigate or prosecute any alcohol or drug abuse patient.[facility] CenterIn the event this information is protected by the Federal Confidentiality of Alcohol and Drug Abuse Patient Records regulations: The Federal rules restrict any use of the information to criminally investigate or prosecute any alcohol or drug abuse patient.[facility] CenterIn the event this information is protected by the Federal Confidentiality of Alcohol and Drug Abuse Patient Records regulations: The Federal rules restrict any use of the information to criminally investigate or prosecute any alcohol or drug abuse patient.[facility] CenterIn the event this information is protected by the Federal Confidentiality of Alcohol and Drug Abuse Patient Records regulations: The Federal rules restrict any use of the information to criminally investigate or prosecute any alcohol or drug abuse patient.[facility] CenterIn the event this information is protected by the Federal Confidentiality of Alcohol and Drug Abuse Patient Records regulations: The Federal rules restrict any use of the information to criminally investigate or prosecute any alcohol or drug abuse patient.[facility] CenterIn the event this information is protected by the Federal Confidentiality of Alcohol and Drug Abuse Patient Records regulations: The Federal rules restrict any use of the information to criminally investigate or prosecute any alcohol or drug abuse patient.[facility] CenterIn the event this information is protected by the Federal Confidentiality of Alcohol and Drug Abuse Patient Records regulations: The Federal rules restrict any use of the information to criminally investigate or prosecute any alcohol or drug abuse patient.[facility] CenterIn the event this information is protected by the Federal Confidentiality of Alcohol and Drug Abuse Patient Records regulations: The Federal rules restrict any use of the information to criminally investigate or prosecute any alcohol or drug abuse patient.[facility] CenterIn the event this information is protected by the Federal Confidentiality of Alcohol and Drug Abuse Patient Records regulations: The Federal rules restrict any use of the information to criminally investigate or prosecute any alcohol or drug abuse patient.[facility] CenterIn the event this information is protected by the Federal Confidentiality of Alcohol and Drug Abuse Patient Records regulations: The Federal rules restrict any use of the information to criminally investigate or prosecute any alcohol or drug abuse patient.[facility] CenterIn the event this information is protected by the Federal Confidentiality of Alcohol and Drug Abuse Patient Records regulations: The Federal rules restrict any use of the information to criminally investigate or prosecute any alcohol or drug abuse patient.[facility] CenterIn the event this information is protected by the Federal Confidentiality of Alcohol and Drug Abuse Patient Records regulations: The Federal rules restrict any use of the information to criminally investigate or prosecute any alcohol or drug abuse patient.[facility] CenterIn the event this information is protected by the Federal Confidentiality of Alcohol and Drug Abuse Patient Records regulations: The Federal rules restrict any use of the information to criminally investigate or prosecute any alcohol or drug abuse patient.[facility] CenterIn the event this information is protected by the Federal Confidentiality of Alcohol and Drug Abuse Patient Records regulations: The Federal rules restrict any use of the information to criminally investigate or prosecute any alcohol or drug abuse patient.[facility] CenterIn the event this information is protected by the Federal Confidentiality of Alcohol and Drug Abuse Patient Records regulations: The Federal rules restrict any use of the information to criminally investigate or prosecute any alcohol or drug abuse patient.[facility] CenterIn the event this information is protected by the Federal Confidentiality of Alcohol and Drug Abuse Patient Records regulations: The Federal rules restrict any use of the information to criminally investigate or prosecute any alcohol or drug abuse patient.[facility] CenterIn the event this information is protected by the Federal Confidentiality of Alcohol and Drug Abuse Patient Records regulations: The Federal rules restrict any use of the information to criminally investigate or prosecute any alcohol or drug abuse patient.[facility] CenterIn the event this information is protected by the Federal Confidentiality of Alcohol and Drug Abuse Patient Records regulations: The Federal rules restrict any use of the information to criminally investigate or prosecute any alcohol or drug abuse patient.[facility] CenterIn the event this information is protected by the Federal Confidentiality of Alcohol and Drug Abuse Patient Records regulations: The Federal rules restrict any use of the information to criminally investigate or prosecute any alcohol or drug abuse patient.[facility] CenterIn the event this information is protected by the Federal Confidentiality of Alcohol and Drug Abuse Patient Records regulations: The Federal rules restrict any use of the information to criminally investigate or prosecute any alcohol or drug abuse patient.[facility] CenterIn the event this information is protected by the Federal Confidentiality of Alcohol and Drug Abuse Patient Records regulations: The Federal rules restrict any use of the information to criminally investigate or prosecute any alcohol or drug abuse patient.[facility] CenterIn the event this information is protected by the Federal Confidentiality of Alcohol and Drug Abuse Patient Records regulations: The Federal rules restrict any use of the information to criminally investigate or prosecute any alcohol or drug abuse patient.[facility] CenterIn the event this information is protected by the Federal Confidentiality of Alcohol and Drug Abuse Patient Records regulations: The Federal rules restrict any use of the information to criminally investigate or prosecute any alcohol or drug abuse patient.[facility] CenterIn the event this information is protected by the Federal Confidentiality of Alcohol and Drug Abuse Patient Records regulations: The Federal rules restrict any use of the information to criminally investigate or prosecute any alcohol or drug abuse patient.[facility] CenterIn the event this information is protected by the Federal Confidentiality of Alcohol and Drug Abuse Patient Records regulations: The Federal rules restrict any use of the information to criminally investigate or prosecute any alcohol or drug abuse patient.[facility] CenterIn the event this information is protected by the Federal Confidentiality of Alcohol and Drug Abuse Patient Records regulations: The Federal rules restrict any use of the information to criminally investigate or prosecute any alcohol or drug abuse patient.[facility] CenterIn the event this information is protected by the Federal Confidentiality of Alcohol and Drug Abuse Patient Records regulations: The Federal rules restrict any use of the information to criminally investigate or prosecute any alcohol or drug abuse patient.[facility] CenterIn the event this information is protected by the Federal Confidentiality of Alcohol and Drug Abuse Patient Records regulations: The Federal rules restrict any use of the information to criminally investigate or prosecute any alcohol or drug abuse patient.[facility] CenterIn the event this information is protected by the Federal Confidentiality of Alcohol and Drug Abuse Patient Records regulations: The Federal rules restrict any use of the information to criminally investigate or prosecute any alcohol or drug abuse patient.[facility] CenterIn the event this information is protected by the Federal Confidentiality of Alcohol and Drug Abuse Patient Records regulations: The Federal rules restrict any use of the information to criminally investigate or prosecute any alcohol or drug abuse patient.[facility] CenterIn the event this information is protected by the Federal Confidentiality of Alcohol and Drug Abuse Patient Records regulations: The Federal rules restrict any use of the information to criminally investigate or prosecute any alcohol or drug abuse patient.[facility] CenterIn the event this information is protected by the Federal Confidentiality of Alcohol and Drug Abuse Patient Records regulations: The Federal rules restrict any use of the information to criminally investigate or prosecute any alcohol or drug abuse patient.[facility] CenterIn the event this information is protected by the Federal Confidentiality of Alcohol and Drug Abuse Patient Records regulations: The Federal rules restrict any use of the information to criminally investigate or prosecute any alcohol or drug abuse patient.[facility] CenterIn the event this information is protected by the Federal Confidentiality of Alcohol and Drug Abuse Patient Records regulations: The Federal rules restrict any use of the information to criminally investigate or prosecute any alcohol or drug abuse patient.[facility] CenterIn the event this information is protected by the Federal Confidentiality of Alcohol and Drug Abuse Patient Records regulations: The Federal rules restrict any use of the information to criminally investigate or prosecute any alcohol or drug abuse patient.[facility] CenterIn the event this information is protected by the Federal Confidentiality of Alcohol and Drug Abuse Patient Records regulations: The Federal rules restrict any use of the information to criminally investigate or prosecute any alcohol or drug abuse patient.[facility] CenterIn the event this information is protected by the Federal Confidentiality of Alcohol and Drug Abuse Patient Records regulations: The Federal rules restrict any use of the information to criminally investigate or prosecute any alcohol or drug abuse patient.[facility] CenterIn the event this information is protected by the Federal Confidentiality of Alcohol and Drug Abuse Patient Records regulations: The Federal rules restrict any use of the information to criminally investigate or prosecute any alcohol or drug abuse patient.[facility] CenterIn the event this information is protected by the Federal Confidentiality of Alcohol and Drug Abuse Patient Records regulations: The Federal rules restrict any use of the information to criminally investigate or prosecute any alcohol or drug abuse patient.[facility] CenterIn the event this information is protected by the Federal Confidentiality of Alcohol and Drug Abuse Patient Records regulations: The Federal rules restrict any use of the information to criminally investigate or prosecute any alcohol or drug abuse patient.[facility] CenterIn the event this information is protected by the Federal Confidentiality of Alcohol and Drug Abuse Patient Records regulations: The Federal rules restrict any use of the information to criminally investigate or prosecute any alcohol or drug abuse patient.[facility] CenterIn the event this information is protected by the Federal Confidentiality of Alcohol and Drug Abuse Patient Records regulations: The Federal rules restrict any use of the information to criminally investigate or prosecute any alcohol or drug abuse patient.[facility] CenterIn the event this information is protected by the Federal Confidentiality of Alcohol and Drug Abuse Patient Records regulations: The Federal rules restrict any use of the information to criminally investigate or prosecute any alcohol or drug abuse patient.[facility] CenterIn the event this information is protected by the Federal Confidentiality of Alcohol and Drug Abuse Patient Records regulations: The Federal rules restrict any use of the information to criminally investigate or prosecute any alcohol or drug abuse patient.[facility] CenterIn the event this information is protected by the Federal Confidentiality of Alcohol and Drug Abuse Patient Records regulations: The Federal rules restrict any use of the information to criminally investigate or prosecute any alcohol or drug abuse patient.[facility] CenterIn the event this information is protected by the Federal Confidentiality of Alcohol and Drug Abuse Patient Records regulations: The Federal rules restrict any use of the information to criminally investigate or prosecute any alcohol or drug abuse patient.[facility] CenterIn the event this information is protected by the Federal Confidentiality of Alcohol and Drug Abuse Patient Records regulations: The Federal rules restrict any use of the information to criminally investigate or prosecute any alcohol or drug abuse patient.[facility] CenterIn the event this information is protected by the Federal Confidentiality of Alcohol and Drug Abuse Patient Records regulations: The Federal rules restrict any use of the information to criminally investigate or prosecute any alcohol or drug abuse patient.[facility] CenterIn the event this information is protected by the Federal Confidentiality of Alcohol and Drug Abuse Patient Records regulations: The Federal rules restrict any use of the information to criminally investigate or prosecute any alcohol or drug abuse patient.[facility] CenterIn the event this information is protected by the Federal Confidentiality of Alcohol and Drug Abuse Patient Records regulations: The Federal rules restrict any use of the information to criminally investigate or prosecute any alcohol or drug abuse patient.[facility] Reason for Visit (unrecogniz ed [...] Date Comments Population Health Navigation Outreach 03/13/2024 [facility] Comments [facility] Reason Comments Follow Up Reason Onset Date Comments Fatigue 08/13/2024 Reason Comments Hospital Follow Up Reason Comments Radiology XR Specialty Diagnoses / Procedures Referred By Contac t Referred To Contact XR IMAGING Diagnoses Pain Procedures XR SHOULDER GENERAL 3V OR MORE AP/TRUE AP/OTHER LT X-RAY SHOULDER COMPLET [place] [address] [place] [address] [place] [address] Xr Imaging [place] [address] Referral ID Status Reason Start Date Expiration Date V isits Requested Visits Authorized Closed Auto-Generate d Referral 07/09/2021 08/08/2022 1 1 Reason Comments Results Reason Comments Radio Gen [facility] Radiology Service Pr ogress NotePATIENT NAME: Yusuf MedinaMRN: [id number] OF SERVICE: September 17, 2024TIME: 4:30 PMPATIENT [...] COMPLETE MINIMUM 3 [place] [address] [place] [address] [place] [address] Referral ID Status Reason Start Date Expiration Date V isits Requested Visits Authorized [id number] Closed Auto-Generate d Referral 09/17/2024 10/17/2025 1 1 Reason Comments Results Suspicion for calcan eal bone fracture Reason Comments Radiology US Specialty Diagnoses / Procedures Referred By Contac t Referred To Contact US IMAGING Diagnoses Right ankle swelling Procedures US DVT LOWER RIGHT DUP-SCAN XTR VEINS UNILATERAL/[place] [address] [place] [id number] Us Imaging [facility] Referral ID Status Reason Start Date Expiration Date V isits Requested Visits Authorized [id number] Closed Auto-Generate d Referral 09/18/2024 10/17/2025 1 1 Reason Comments New 8/10 [facility] A ABEL Pain 8/10 [facility] A ABEL Specialty Diagnoses / Procedures Referred By Contac t Referred To Contact Orthopedics / ORTHOPAEDIC SURGERY Diagnoses Right ankle swelling Closed nondisplaced fracture of right calcaneus, unspecified portion of calcaneus, initial encounter Procedures CONSULT PANEL TO ORTHOPAEDICS OFFICE/OUTPATIENT [facility] [address] [place] [address] [place] [address] [facility] [address] [place] [address] Referral ID Status Reason Start Date Expiration Date V isits Requested Visits Authorized [id number] Closed PCP Requested Referral 09/18/2024 09/18/2025 1 1 Reason Comments Consult leukocytosis Specialty Diagnoses / Procedures Referred By Contac t Referred To Contact Diagnoses Leukocytosis, unspecified type Procedures CONSULT TO HEMATOLOGY/ONCOLOGY OFFICE/OUTPATIENT [facility] [address] [place] [address] [place] [address] Referral ID Status Reason Start Date Expiration Date V isits Requested Visits Authorized [id number] Closed PCP Requested Referral 09/04/2024 09/04/2025 1 1 Reason Comments Medicare Wellness Exam Reason Comments Follow Up Reason Comments Radio Gen RMP Radiology Service Pr ogress NotePATIENT NAME: Yusuf MedinaMRN: [id number] OF SERVICE: November 01, 2024TIME: 2:15 PMPATIENT [...] MINIMUM 3 VIEWS Simone Kevin MD [address] [place] [address] [facility] [place] [address] Referral ID Status Reason Start Date Expiration Date V isits Requested Visits Authorized [id number] Closed Auto-Generate d Referral 11/01/2024 12/01/2025 1 1 Reason Comments infection on ankle Right ankle looks in fected Specialty Diagnoses / Procedures Referred By Contac t Referred To Contact MR IMAGING Diagnoses Chronic pain of right ankle Procedures MRI ANKLE WO IVCON RIGHT MRI ANY JT LOWER EXTREM W/O CONTRAST MATRL Simone Kevin MD [address] [place] [address] [facility] [place] [address] Referral ID Status Reason Start Date Expiration Date V isits Requested Visits Authorized [id number] Closed Auto-Generate d Referral 11/01/2024 12/01/2025 1 [...] Care Teams (unrecognized sec tion and content) Media Strategist Relationship Specialty [place] [address] [place] [address] PCP - General Family Practice 10/05/10 Edenilson Townsend [address] [facility] [address] Consulting Optometry 12/07/17 Media Strategist Relationship Specialty [place] [address] [place] [address] PCP - General Family Practice 10/05/10 Edenilson Townsend [address] [facility] [address] Consulting Optometry 12/07/17 Media Strategist Relationship Specialty [place] [address] [place] [address] PCP - General Family Practice 10/05/10 Edenilson Townsend [address] [facility] [address] Consulting Optometry 12/07/17 Media Strategist Relationship Specialty [place] [address] [place] [address] PCP - General Family Practice 10/05/10 Edenilson Townsend [address] [facility] [address] Consulting Optometry 12/07/17 José Miguel Swanson, [facility] [address] [place] [address] Transitional Care Pharmacist Pharmacy 03/30/22 04/30/22 Katia Farooq, missile control pilot Temple Marker 03/30/22 04/29/22 Media Strategist Relationship Specialty [place] [address] [place] [address] PCP - General Family Practice 10/05/10 Edenilson Townsend [address] [facility] [place] [address] Consulting Optometry 12/07/17 [facility] [address] [place] [address] Transitional Care Pharmacist Pharmacy 03/30/22 04/30/22 Katia Farooq, missile control pilot Temple [employer]er 03/30/22 04/29/22 Media Strategist Relationship Specialty [place] [address] [place] [address] PCP - General Family Practice 10/05/10 Edenilson Townsend [address] [place] [address] Consulting Optometry 12/07/17 [facility] [address] [place] [address] Transitional Care Pharmacist Pharmacy 03/30/22 04/30/22 Katia Farooq, missile control pilot [employer]er 03/30/22 04/29/22 Media Strategist Relationship Specialty [place] [address] [place] [address] PCP - General Family Practice 10/05/10 Edenilson Townsend [address] [place] [address] Consulting Optometry 12/07/17 [facility] [address] [place] [address] Transitional Care Pharmacist Pharmacy 03/30/22 04/30/22 Katia Farooq, missile control pilot [employer]er 03/30/22 04/29/22 Media Strategist Relationship Specialty [place] [address] [place] [address] PCP - General Family Practice 10/05/10 Edenilson Townsend [address] [facility] [address] Consulting Optometry 12/07/17 José Miguel Swanson, [facility] [address] [place] [address] Transitional Care Pharmacist Pharmacy 03/30/22 04/30/22 Katia Farooq, missile control pilot Temple [employer]er 03/30/22 04/29/22 Media Strategist Relationship Specialty [place] [address] [place] [address] PCP - General Family Practice 10/05/10 Edenilson Townsend [address] [facility] [place] [address] Consulting Optometry 12/07/17 Media Strategist Relationship Specialty [place] [address] [place] [address] PCP - General Family Practice 10/05/10 Edenilson Townsend [address] [facility] [address] Consulting Optometry 12/07/17 Media Strategist Relationship Specialty [place] [address] [place] [address] PCP - General Family Practice 10/05/10 Edenilson Townsend [address] [facility] [address] Consulting Optometry 12/07/17 Media Strategist Relationship Specialty [place] [address] [place] [address] PCP - General Family Medicine 10/05/10 Edenilson Townsend [address] [facility] [address] Consulting Optometry 12/07/17 Media Strategist Relationship Specialty [place] [address] [place] [address] PCP - General Family Medicine 10/05/10 Edenilson Townsend [address] [facility] [address] Consulting Optometry 12/07/17 Media Strategist Relationship Specialty [place] [address] [place] [address] PCP - General Family Medicine 10/05/10 Edenilson Townsend [address] [facility] [address] Consulting Optometry 12/07/17 Media Strategist Relationship Specialty [place] [address] [place] [address] PCP - General Family Medicine 10/05/10 Edenilson Townsend [address] [facility] [address] Consulting Optometry 12/07/17 Media Strategist Relationship Specialty [place] [address] [place] [address] PCP - General Family Medicine 10/05/10 Edenilson Townsend [address] [facility] [address] Consulting Optometry 12/07/17 [place] [address] [place] [address] Primary Care Temple [employer]er 03/10/23 04/08/23 Media Strategist Relationship Specialty [place] [address] [place] [address] PCP - General Family Medicine 10/05/10 Edenilson Townsend [address] [facility] [address] Consulting Optometry 12/07/17 [place] [address] [place] [address] Primary Care Temple [employer]er 03/10/23 04/08/23 Media Strategist Relationship Specialty [place] [address] [place] [address] PCP - General Family Medicine 10/05/10 Edenilson Townsend [address] [place] [address] Consulting Optometry 12/07/17 [place] [address] [place] [address] Primary Care Temple [employer]er 03/10/23 04/08/23 Media Strategist Relationship Specialty [place] [address] [place] [address] PCP - General Family Medicine 10/05/10 Edenilson Townsend [address] [facility] [address] Consulting Optometry 12/07/17 [place] [address] [place] [address] Primary Care Temple [facility]er 03/10/23 04/08/23 Media Strategist Relationship Specialty [place] [address] [place] [address] PCP - General Family Medicine 10/05/10 Edenilson Townsend [address] [place] [address] Consulting Optometry 12/07/17 Media Strategist Relationship Specialty [place] [address] [place] [address] PCP - General Family Medicine 10/05/10 Edenilson Townsend [address] [place] [address] Consulting Optometry 12/07/17 Media Strategist Relationship Specialty [place] [address] [place] [address] PCP - General Family Medicine 10/05/10 Edenilson Townsend [address] [facility] [place] [address] Consulting Optometry 12/07/17 Media Strategist Relationship Specialty [place] [address] [place] [address] PCP - General Family Medicine 10/05/10 Edenilson Townsend [address] [facility] [place] [address] Consulting Optometry 12/07/17 Media Strategist Relationship Specialty [place] [address] [place] [address] PCP - General Family Medicine 10/05/10 Edenilson Townsend [address] [facility] [place] [address] Consulting Optometry 12/07/17 Media Strategist Relationship Specialty [place] [address] [place] [address] PCP - General Family Medicine 10/05/10 Edenilson Townsend [address] [facility] [address] Consulting Optometry 12/07/17 Media Strategist Relationship Specialty [place] [address] [place] [address] PCP - General Family Medicine 10/05/10 Edenilson Townsend, CHETNA [address] [facility] [address] Consulting Optometry 12/07/17 Media Strategist Relationship Specialty [place] [address] [place] [address] PCP - General Family Medicine 10/05/10 Edenilson Townsend, CHETNA [address] [facility] [address] Consulting Optometry 12/07/17 Media Strategist Relationship Specialty [place] [address] [place] [address] PCP - General Family Medicine 10/05/10 Edenilson Townsend, OD [address] [place] [address] Consulting Optometry 12/07/17 Media Strategist Relationship Specialty [place] [address] [place] [address] PCP - General Family Medicine 10/05/10 Edenilson Townsend, OD [address] [facility] [address] Consulting Optometry 12/07/17 Media Strategist Relationship Specialty [place] [address] [place] [address] PCP - General Family Medicine 10/05/10 [place] [address] [facility] [address] Consulting Optometry 12/07/17 Media Strategist Relationship Specialty [place] [address] [place] [address] PCP - General Family Medicine 10/05/10 [place]ilson Townsend [place] [address] [place] [address] Consulting Optometry 12/07/17 Media Strategist Relationship Specialty [place] [address] [place] [address] PCP - General Family Medicine 10/05/10 Edenilson Townsend OD [address] [facility] [address] Consulting Optometry 12/07/17 Media Strategist Relationship Specialty [place] [address] [place] [address] PCP - General Family Medicine 10/05/10 Edenilson Townsend OD [address] [place] [address] Consulting Optometry 12/07/17 Media Strategist Relationship Specialty [place] [address] [place] [address] PCP - General Family Medicine 10/05/10 Edenilson Townsend OD [address] [place] [address] Consulting Optometry 12/07/17 Media Strategist Relationship Specialty [place] [address] [place] [address] PCP - General Family Medicine 10/05/10 Edenilson Townsend, CHETNA [address] [facility] [address] Consulting Optometry 12/07/17 Media Strategist Relationship Specialty [place] [address] [place] [address] PCP - General Family Medicine 10/05/10 Edenilson Townsend, OD [address] [place] [address] Consulting Optometry 12/07/17 Media Strategist Relationship Specialty [place] [address] [place] [address] PCP - General Family Medicine 10/05/10 Edenilson Towsnend, [place] [address] [facility] [address] Consulting Optometry 12/07/17 Media Strategist Relationship Specialty [place] [address] [place] [address] PCP - General Family Medicine 10/05/10 Edenilson Townsend, OD [address] [place] [address] Consulting Optometry 12/07/17 Media Strategist Relationship Specialty [place] [address] [place] [address] PCP - General Family Medicine 10/05/10 Edenilson Townsend, OD [address] [place] [address] Consulting Optometry 12/07/17 Media Strategist Relationship Specialty [place] [address] [place] [address] PCP - General Family Medicine 10/05/10 Edenilson Townsend OD [address] [place] [address] Consulting Optometry 12/07/17 Media Strategist Relationship Specialty [place] [address] [place] [address] PCP - General Family Medicine 10/05/10 Edenilson Townsend OD [address] [place] [address] Consulting Optometry 12/07/17 Media Strategist Relationship Specialty [place] [address] [place] [address] PCP - General Family Medicine 10/05/10 Edenilson Townsend OD [address] [place] [address] Consulting Optometry 12/07/17 Media Strategist Relationship Specialty [place] [address] [place] [address] PCP - General Family Medicine 10/05/10 Edenilson Townsend OD [address] [place] [address] Consulting Optometry 12/07/17 Media Strategist Relationship Specialty [place] [address] [place] [address] PCP - General Family Medicine 10/05/10 Edenilson Townsend, CHETNA [address] [facility] [address] Consulting Optometry 12/07/17 Media Strategist Relationship Specialty [place] [address] [place] [address] PCP - General Family Medicine 10/05/10 Edenilson Townsend, CHETNA [address] [facility] [address] Consulting Optometry 12/07/17 Cinthia Ponce JUVENILE JUSTICE OFFICER[employer] [address] [place] [address] Mitochondrial Disorders Counselor Family Medicine 10/21/24 Willie Kaur JUVENILE JUSTICE OFFICER.CITY BAILIFF [address] [facility] [address] Mitochondrial Disorders Counselor Family Medicine 10/21/24 Media Strategist Relationship Specialty [place] [address] [place] [address] PCP - General Family Medicine 10/05/10 Edenilson Townsend, OD [address] [facility] [address] Consulting Optometry 12/07/17 Cinthia Ponce, JUVENILE JUSTICE OFFICER.CITY [employer]AILIFF [address] [place] [address] Mitochondrial Disorders Counselor Family Medicine 10/21/24 Willie Kaur JUVENILE JUSTICE OFFICER.C[employer] [address] [place] [address] Mitochondrial Disorders Counselor Family Medicine 10/21/24 Media Strategist Relationship Specialty [place] [address] [place] [address] PCP - General Family Medicine 10/05/10 Edenilson Townsend OD [address] [place] [address] Consulting Optometry 12/07/17 Cinthia Ponce, JUVENILE JUSTICE OFFICER.CITY [employer]AILIFF [address] [place] [address] Mitochondrial Disorders Counselor Family Medicine 10/21/24 Willie Kaur, JUVENILE JUSTICE OFFICER.CITY [employer] [address] [place] [address] Mitochondrial Disorders Counselor Family [facility] 10/21/24 Media Strategist Relationship Specialty [place] [address] [place] [address] PCP - General Family Medicine 10/05/10 Edenilson Townsend OD [address] [place] [address] Consulting Optometry 12/07/17 Cinthia Ponce, JUVENILE JUSTICE OFFICER.CITY BAILIFF [address] [place] [address] Mitochondrial Disorders Counselor Family Medicine 10/21/24 Willie Kaur JUVENILE JUSTICE OFFICER.CITY [employer] [address] [place] [address] Mitochondrial Disorders Counselor Family Medicine 10/21/24 Media Strategist Relationship Specialty [place] [address] [place] [address] PCP - General Family Medicine 10/05/10 Edenilson Townsend OD [address] [place] [address] Consulting Optometry 12/07/17 Cinthia Ponce JUVENILE JUSTICE OFFICER.C[employer] [address] [place] [address] Mitochondrial Disorders Counselor Family Medicine 10/21/24 Willie Kaur, JUVENILE JUSTICE OFFICER.CITY [employer] [address] [place] [address] Mitochondrial Disorders Counselor Family Medicine 10/21/24 Media Strategist Relationship Specialty Start [place] [address] [place] [address] PCP - General Family Medicine 10/05/10 Edenilson Townsend OD [address] [place] [address] Consulting Optometry 12/07/17 Cinthia Ponce JUVENILE JUSTICE OFFICER.CITY [employer] [address] [place] [address] Mitochondrial Disorders Counselor Family Medicine 10/21/24 Willie Kaur JUVENILE JUSTICE OFFICER.CITY [employer] [address] [place] [address] Mitochondrial Disorders Counselor Family Medicine 10/21/24 Media Strategist Relationship Specialty Start [place] [address] [place] [address] PCP - General Family Medicine 10/05/10 Edenilson Townsend, OD [address] [place] [address] Consulting Optometry 12/07/17 Cinthia Ponce JUVENILE JUSTICE OFFICER.C[employer] [address] [place] [address] Mitochondrial Disorders Counselor Family Medicine 10/21/24 Willie Kaur, JUVENILE JUSTICE OFFICER.CITY [employer] [address] [place] [address] Mitochondrial Disorders Counselor Family Medicine 10/21/24 Media Strategist Relationship Specialty Start [place] [address] [place] [address] PCP - General Family Medicine 10/05/10 Edenilson Townsend, OD [address] [place] [address] Consulting Optometry 12/07/17 Cinthia Ponce, JUVENILE JUSTICE OFFICER.[employer] [address] [place] [address] Mitochondrial Disorders Counselor Family Medicine 10/21/24 Willie Kaur, JUVENILE JUSTICE OFFICER.C[employer] [address] [place] [address] Mitochondrial Disorders Counselor Family Medicine 10/21/24 Media Strategist Relationship Specialty Start [place] [address] [place] [address] PCP - General Family Medicine 10/05/10 Edenilson Townsend, CHETNA [address] [place] [address] Consulting Optometry 12/07/17 Cinthia Ponce, JUVENILE JUSTICE OFFICER.[employer] [address] [place] [address] Mitochondrial Disorders Counselor Family Medicine 10/21/24 Willie Kaur, JUVENILE JUSTICE OFFICER.CITY [employer] [address] [place] [address] Mitochondrial Disorders Counselor Family Medicine 10/21/24 Media Strategist Relationship Specialty Start [place] [address] [place] [address] PCP - General Family Medicine 10/05/10 Edenilson Townsend, CHETNA [address] [place] [address] Consulting Optometry 12/07/17 Cinthia Ponce, JUVENILE JUSTICE OFFICER.[employer] [address] [place] [address] Mitochondrial Disorders Counselor Family Medicine 10/21/24 Willie Kaur JUVENILE JUSTICE OFFICER.C[employer] [address] [place] [address] Mitochondrial Disorders Counselor Family Medicine 10/21/24 Media Strategist Relationship Specialty Start [place] [address] [place] [address] PCP - General Family Medicine 10/05/10 Edenilson Townsend OD [address] [place] [address] Consulting Optometry 12/07/17 Cinthia Ponce, JUVENILE JUSTICE OFFICER.[employer] [address] [place] [address] Mitochondrial Disorders Counselor Family Medicine 10/21/24 Willie Kaur, JUVENILE JUSTICE OFFICER.CITY [employer]AIL[employer] [address] [place] [address] Mitochondrial Disorders Counselor Family Medicine 10/21/24 Media Strategist Relationship Specialty Start [place] [address] [place] [address] PCP - General Family Medicine 10/05/10 Edenilson Townsend OD [address] [place] [address] Consulting Optometry 12/07/17 Cinthia Ponce, JUVENILE JUSTICE OFFICER.[employer] [address] [place] [address] Mitochondrial Disorders Counselor Family Medicine 10/21/24 Willie Kaur, JUVENILE JUSTICE OFFICER.CITY [employer]AIL[employer] [address] [place] [address] Mitochondrial Disorders Counselor Family Medicine 10/21/24 Media Strategist Relationship Specialty Start [place] [address] [place] [address] PCP - General Family Medicine 10/05/10 Edenilson Townsend OD [address] [place] [address] Consulting Optometry 12/07/17 Cinthia Ponce, JUVENILE JUSTICE OFFICER.[employer] [address] [place] [address] Mitochondrial Disorders Counselor Family Medicine 10/21/24 Willie Kaur, JUVENILE JUSTICE OFFICER.CITY BAILIFF [address] [place] [address] Mitochondrial Disorders Counselor Family Medicine 10/21/24 Media Strategist Relationship Specialty Start [place] [address] [place] [address] PCP - General Family Medicine 10/05/10 Edenilson Townsend, CHETNA [address] [place] [address] Consulting Optometry 12/07/17 Cinthia Ponce, JUVENILE JUSTICE OFFICER.[employer] [address] [place] [address] Mitochondrial Disorders Counselor Family Medicine 10/21/24 Willie Kaur, JUVENILE JUSTICE OFFICER.C[employer] [address] [place] [address] Mitochondrial Disorders Counselor Family Medicine 10/21/24 Media Strategist Relationship Specialty Start [place] [address] [place] [address] PCP - General Family Medicine 10/05/10 Edenilson Townsend, CHETNA [address] [place] [address] Consulting Optometry 12/07/17 Cinthia Ponce JUVENILE JUSTICE OFFICER.[employer] [address] [place] [address] Mitochondrial Disorders Counselor Family Medicine 10/21/24 Willie Kaur, JUVENILE JUSTICE OFFICER.C[employer] [address] [place] [address] Mitochondrial Disorders Counselor Family Medicine 10/21/24 Media Strategist Relationship Specialty Start [place] [address] [place] [address] PCP - General Family Medicine 10/05/10 Edenilson Townsend OD [address] [place] [address] Consulting Optometry 12/07/17 Cinthia Ponce JUVENILE JUSTICE OFFICER.[employer] [address] [place] [address] [facility] 10/21/24 Willie Kaur, JUVENILE JUSTICE OFFICER.CITY BAILIFF [address] [place] [address] [facility] 10/21/24 Media Strategist Relationship Specialty Start [place] [address] [place] [address] PCP - General Family Medicine 10/05/10 Edenilson Townsend OD [address] [place] [address] Consulting Optometry 12/07/17 Cinthia Ponce JUVENILE JUSTICE OFFICER.[employer] [address] [place] [address] Mitochondrial Disorders Counselor Family Medicine 10/21/24 Willie Kaur, JUVENILE JUSTICE OFFICER.[employer] [address] [place] [address] Mitochondrial Disorders Counselor Family Medicine 10/21/24 Media Strategist Relationship Specialty Start [place] [address] [place] [address] PCP - General Family Medicine 10/05/10 Edenilson Townsend OD [address] [place] [address] Consulting Optometry 12/07/17 Cinthia Ponce JUVENILE JUSTICE OFFICER.[employer] [address] [place] [address] Mitochondrial Disorders Counselor Family Medicine 10/21/24 Willie Kaur, JUVENILE JUSTICE OFFICER.[employer] [address] [place] [address] Mitochondrial Disorders Counselor Family Medicine 10/21/24 Media Strategist Relationship Specialty Start [place] [address] [place] [address] PCP - General Family Medicine 10/05/10 Edenilson Townsend OD [address] [place] [address] Consulting Optometry 12/07/17 Cinthia Ponce JUVENILE JUSTICE OFFICER.[employer] [address] [place] [address] Mitochondrial Disorders Counselor Family Medicine 10/21/24 Willie Kaur, JUVENILE JUSTICE OFFICER.C[employer] [address] [place] [address] [facility] 10/21/24 Media Strategist Relationship Specialty Start [place] [address] [place] [address] PCP - General Family Medicine 10/05/10 Edenilson Townsend OD [address] [place] [address] Consulting Optometry 12/07/17 Cinthia Ponce, JUVENILE JUSTICE OFFICER.C[employer] [address] [place] [address] [facility] 10/21/24 Willie Kaur, JUVENILE JUSTICE OFFICER.CITY BAILIFF [id number] [place] [address] [facility] 10/21/24 Team Status: Active Member Role [...] Provider Active S tart: February 04, 2025 Media Strategist Relationship Specialty Start [place] [id number] [place] [address] PCP - General Family Medicine 10/05/10 Edenilson Townsend OD [address] [place] [address] Consulting Optometry 12/07/17 Cinthia Ponce, JUVENILE JUSTICE OFFICER.CITY BAILIFF [address] [place] [address] Mitochondrial Disorders Counselor Family [facility] 10/21/24 Willie Kaur APRN.CITY BAILIFF [address] [place] [address] Mitochondrial Disorders Counselor Family Medicine 10/21/24 Team Status: Inactive Member [...] Provider Active S tart: April 01, 2025 Media Strategist Relationship Specialty [place] [address] [place] [address] PCP - General Family Medicine 10/05/10 Edenilson Townsend OD [address] [place] [address] Consulting Optometry 12/07/17 Willie Kaur, JUVENILE JUSTICE OFFICER.CITY BAILIFF [address] [facility] [place] [address] Mitochondrial Disorders Counselor Family Medicine 10/21/24 Media Strategist Relationship Specialty Start [place] [address] [place] [address] PCP - General Family Medicine 10/05/10 Edenilson Townsend, OD [address] [place] [address] Consulting Optometry 12/07/17 Willie Kaur, J[employer]ILE JUSTICE OFFICER.CITY BAILIFF [address] [facility] [place] [address] Mitochondrial Disorders Counselor Family Medicine 10/21/24 Media Strategist Relationship Specialty Start [place] [address] [place] [address] PCP - General Family Medicine 10/05/10 Edenilson Townsend, CHETNA [address] [place] [address] Consulting Optometry 12/07/17 Willie Kaur, JUV[employer] JUSTICE OFFICER.CITY BAILIFF [address] [place] [address] Mitochondrial Disorders Counselor Family Medicine 10/21/24 Media Strategist Relationship Specialty Start [place] [address] [place] [address] PCP - General Family Medicine 10/05/10 Edenilson Townsend OD [address] [place] [address] Consulting Optometry 12/07/17 Willie Kaur APRN.CITY BAILIFF [address] [place], [place] [id number] Mitochondrial Disorders Counselor [facility] 10/21/24 Team Status: Inactive Member Role/Relationship Status Dates Mario RODAS MD Attending physician Active Start: April 26, 2025 End: April 26, 2025 Team Status: Active Member Role/Relationship Status Dates Mario RODAS MD Attending physician Active Start: April 29, 2025 Mario RODAS MD Referring Provider Active S tart: April 29, 2025 Team Status: Active Member Role/Relationship Status Dates Mario RODAS MD Attending physician Active Start: May 27, 2025 Mario RODAS MD Referring Provider Active S tart: May 27, 2025 Team Status: Active Member Role/Relationship Status Dates Mario RODAS MD Attending physician Active Start: June 04, 2025 Team Status: Active Member Role/Relationship Status Dates Mario RODAS MD Attending physician Active Start: June 20, 2025 Team Status: Active Member Role/Relationship Status Dates Mario RODAS MD Attending physician Active Start: June 24, 2025 Mario RODAS MD Referring Provider Active S tart: June 24, 2025 Team Status: Active Member Role/Relationship Status Dates Mario RODAS MD Attending physician Active Start: July 22, 2025 Mario RODAS MD Referring Provider Active S tart: Nona 8th, 2025 Team Status: Active Member Role/Relationship Status Dates Mario RODAS MD Attending physician Active Start: July 31, 2025 Team Status: Inactive Member Role/Relationship Status Dates Mario RODAS MD Attending physician Active Start: June 04, 2025 End: June 04, 2025 Goals (unrecognized section and content) Goals [...] BE BASED ON THE PRIMARY CLINICAL RECORDS. [facility]. provides no warranty or guarantee of the accuracy or completeness of information in this document.
[2025-10-14 08:30] LABS: CRP < 3.00 mg/L (0.0-3.0)
== END ==
LOC: OLS.ACH 05:00
PROVIDERS: Visit Provider Internal Medicine
DX: M46.92 Unspecified inflammatory spondylopathy, cervical region (principal); Z86.14 Personal history of Methicillin resistant Staphylococcus aureus infection
CPT/HCPCS: 36415; 85652; 86140

== ENCOUNTER → 2025-10-15 02:10 | Outpatient (REF) | payer MEDICARE, SELFPAY ==
[2025-10-15 08:16] LABS: Mucous, Urine 0 SEEN /hpf (<or=2+); Red Blood Cells-Urine 0 SEEN /hpf (0-5)
[2025-10-15 08:31] LABS: Color, Urine Yellow (Yellow); Glucose, Dipstick Normal (Normal); Ketone-Dipstick Negative (Negative); Leukocyte Esterase-Dipstick Negative /ul (Negative); Nitrite-Dipstick Negative (Negative); Occult Blood-Urine Negative /ul (Negative); Protein-Dipstick 30 mg/dl (Negative); Specific Gravity, Urine 1.010 (1.002-1.030); Urine Bilirubin Dipstick Negative (Negative)
[2025-10-15 08:43] LABS: Squamous Epithelial Cells - UA 0-5 SEEN /hpf (5-10)
== END ==
LOC: OLS.ACH 02:10
PROVIDERS: Referring Provider Internal Medicine; Visit Provider Internal Medicine
DX: R35.0 Frequency of micturition (principal)
CPT/HCPCS: 81001; 87086; 87088; 87186

== ENCOUNTER → 2025-11-11 05:00 | Outpatient (REF) | payer MEDICARE, SELFPAY ==
--- OUTSIDE RECORDS SUMMARY | 2025-11-11 03:41 | XMS RPT_ITS | CCD ---
Author Organization [facility] ion Partnership [facility] Care Team Providers Care Inside Sales Associate Name Role Phone Migdalia Cramer MD Primary Care Provider Edenilson Townsend Unavailable [phone] [facility] Miguel Unavailable Katia Farooq RN Unavailable UnavailMigdalia Matute MD Primary Care Provider Edenilson Townsend Unavailable [phone] Migdalia Cramer MD Primary Care Provider Edenilson Townsend Unavailable [phone] Lien Hankins RN Unavailable Edenilson Townsend OD Unavailable [phone] Migdalia Cramer MD Primary Care Provider Kris IMMIGRATION COORDINATOR.Cinthia JUAN Unavailable [facility] COORDIN[place].Willie JUAN Unavailable Aubree HODGE, Mario Attending Provider [...] Unavailable CRAMER, MIGDALIA D Primary Care Unavailable ANDREA, GRUPO Referring Unavailable CRAMER, MIGDALIA D Primary Care Unavailable SIMONE KEVIN Referring Unavailable W[place]AND[place], MIGDALIA D Primary Care Unavailable MARIUSZ ROMO Attending Unavailable CRAMER, MIGDALIA D Primary Care Unavailable SIMONE KEVIN Referring Unavailable CRAMER, MIGDALIA D Primary Care Unavailable ANDREA, GRUPO Referring Unavailable CRAMER, MIGDALIA D Primary Care Unavailable ANDREA, GRUPO Referring Unavailable CRAMER, MIGDALIA D Primary Care Unavailable CRAMER, MIGDALIA D Primary Care Unavailable SIMONE KEVIN Referring Unavailable ANDREA, GRUPO Referring Unavailable CRAMER, MIGDALIA D Primary Care Unavailable SIMONE KEVIN Attending Unavailable AB BENSON Attending Unavailable CRAMER, MIGDALIA D Primary Care Unavailable SELF Referring Unavailable CRAMER, MIGDALIA D Primary Care Unavailable SIMONE KEVIN Attending Unavailable SIMONE KEVIN Referring Unavailable CRAMER, MIGDALIA D Primary Care Unavailable ANDREA, GRUPO Referring Unavailable CRAMER, MIGDALIA D Primary [...] Comment on above: Take 1 capsule by [facility] daily for 3 doses. colchicine [...] on above: Take 1 capsule by mo [facility] once daily. TAKE 1 CAPSULE BY [facility] ONCE DAILY melatonin 3 mg [...] Comment on above: [facility] polyethylene glycol 3350 50629 mg powder for oral solution (20 sources) [...] 09-16-2025 C-REACTIVE PROT < 3.00 Normal 0.0-3.0 Comment on above: Performed By: #### L 400.0001, M100.2200 #### Laboratory [address] [place], [address] Erythrocyte Sed Rateon 09-16 SED RATE 39 mm/hr High 0-30 Comment on above: Performed By: #### L 400.0001, M10 #### Laboratory [address] [place], [address] Hemoglobin A1con 08-27-2025 HbA1c (Bld) [Mass fraction] 7.4 % High <=5.6 Comment on above: Order Comment: 107-1 CLEAN CATCH Result Comment: Norm al < 5.7 % Prediabetic 5.7 - 6.4 % Diabetic >or= 6.5 % Please note range changes. Performed By: #### L 400.0001, M1 #### Laboratory [address] [place], [address] CRPon 08-19-2025 C-REACTIVE PROT < 3.00 Normal 0.0-3.0 Comment on above: Order Comment: 107-1 Performed By: #### L 400.0001, #### Laboratory [address] [place], [address] Erythrocyte Sed Rateon 08-19 SED RATE 17 mm/hr Normal 0-30 Comment on above: Order Comment: 107-1 Performed By: #### L 400.0001, #### Laboratory [address] [place], [address] Anion gap in Serum or Plasma Ordered By: Mario Mak on 07-31-2025 Anion gap [Moles/Vol] 12 mmol/L 5-15 [facility] Automated blood erythrocyte countOrdered By: Mario Mak on 07-31-2025 RBC (Bld) [#/Vol] 2.98 10*6/uL Low 4.2-5.4 [facility] Comment on above: Order Comment: 107.1 Performed By: #### L 501.6710, L101.9900 #### Laboratory [address] [place], [address] Automated blood hematocrit ( percentage)Ordered By: Mario Mak on 07-31-2025 Hematocrit (Bld) [Volume fraction] 27.2 % Low 37-47 Comment on above: Order Comment: 107.1 Performed By: #### L 501.6710, L101.9900 #### Laboratory [address] [place], [address] BUN/creatinine ratioOrdered By: Mario Mak on 07-31-2025 Urea nitrogen/Creatinine [Mass ratio] 27.8 mg/mg High 10-20 Bilirubin, totalOrdered By: Mario Mak on 07-31-2025 Bilirubin [Mass/Vol] 0.20 mg/dL Normal 0.00-1.30 [facility] Comment on above: Order Comment: 107.1 Performed By: #### L 501.6710, L101.9900 #### Laboratory [address] [place], [address] CBC-Complete Blood Cnt No Di ffon 07-31-2025 RDW SD 45.9 fl High 35.1-43.9 Comment on above: Order Comment: 107.1 Performed By: #### L 501.6710, L101.9900 #### Laboratory [address] [place], [address] Carbon dioxide, total [Moles /volume] in Central venous bloodOrdered By: Mario Mak on 07-31-2025 CO2 [Moles/Vol] 22.1 mmol/L Normal 21.0-32.0 Comment on above: Order Comment: 107.1 Performed By: #### L 501.6710, L101.9900 #### Laboratory [address] [place], [address] Chloride assayOrdered By: Moreno on 07-31-2025 Chloride [Moles/Vol] 105 mmol/L Normal 98-108 [facility] Comment on above: Order Comment: 107.1 Performed By: #### L 501.6710, L101.9900 #### Laboratory [address] [place], [address] Comprehensive Metabolic Prof ilon 07-31-2025 ALK PHOS 106 U/L High 35-104 Comment on above: Order Comment: 107.1 Performed By: #### L 501.6710, L101.9900 #### Laboratory [address] [place], [address] BUN/CRE 27.8 RATIO High 10-20 Comment on above: Order Comment: 107.1 Performed By: #### L 501.6710, L101.9900 #### Laboratory [address] [place], [address] GAP 12 Normal 5-15 Comment on above: Order Comment: 107.1 Performed By: #### L 501.6710, L101.9900 #### Laboratory [address] [place], [address] Potassium [Moles/Vol] 4.2 mmol/L Normal 3.3-5.1 [facility] Comment on above: Order Comment: 107.1 Performed By: #### L 501.6710, L101.9900 #### Laboratory [address] [place], [address] T PROT 5.5 g/dL Low 5.9-8.4 Comment on above: Order Comment: 107.1 Performed By: #### L 501.6710, L101.9900 #### Laboratory [address] [place], [address] Comprehensive Metabolic Prof ilOrdered By: Mario Mka on 07-31-2025 AST [Catalytic activity/Vol] 25 U/L Normal <=31 Comment on above: Order Comment: 107.1 Performed By: #### L 501.6710, L101.9900 #### Laboratory [address] [place], [address] Erythrocyte distribution wid th ratioOrdered By: Mario Mak on 07-31-2025 Erythrocyte distribution width (RBC) [Ratio] 13.6 % Normal 11.6-14.6 Comment on above: Order Comment: 107.1 Performed By: #### L 501.10, L101.9900 #### Laboratory [address] [place], [address] Erythrocyte distribution wid th standard deviationOrdered By: Mario Mak on 07-31-2025 Erythrocyte distribution width (RBC) [Ratio] 45.9 fl High 35.1-43.9 Glomerular filtration rate ( GFR) estimation/1.73 sq m using serum, plasma, or whole bOrdered By: Mario Mak on 07-31-2025 GFR/1.73 sq M.predicted among non-blacks MDRD (S/P/Bld) [Vol rate/Area] 54 mL/min/{1.73_m2} Low >60 Comment on above: mL/min/1.73m2 CKD-EP I Creatinine Equation (2020) Order Comment: 107.1 Result Comment: mL/m in/1.73m2 CKD-EPI Creatinine Equation (2020) Performed By: #### L 501.6710, L101.9900 #### Laboratory [address] [place], [address] Hemoglobin measurementOrdere d By: Mario Mak on 07-31-2025 Hemoglobin (Bld) [Mass/Vol] 9.1 g/dL Low 12.0-15.0 Comment on above: Order Comment: 107.1 Performed By: #### L 501.6710, L101.9900 #### Laboratory [address] [place], [address] MCV (mean corpuscular volume ) determinationOrdered By: Mario Mak on 07-31-2025 MCV (RBC) [Entitic vol] 91.3 fL Normal 81-99 [facility] Comment on above: Order Comment: 107.1 Performed By: #### L 501.6710, L101.9900 #### Laboratory [address] [place], [address] Mean corpuscular hemoglobin (MCH) determinationOrdered By: Mario Mak on 07-31-2025 MCH (RBC) [Entitic mass] 30.5 pg Normal 27.0-32.0 Comment on above: Order Comment: 107.1 Performed By: #### L 501.6710, L101.9900 #### Laboratory [address] [place], [address] Mean corpuscular hemoglobin concentration (MCHC) determinationOrdered By: Mario Mak on 07-31-2025 MCHC (RBC) [Mass/Vol] 33.5 g/dL Normal 32-36 [facility] Comment on above: Order Comment: 107.1 Performed By: #### L 501.6710, L101.9900 #### Laboratory [address] [place], [address] Mean platelet volume determi nationOrdered By: Mario Mak on 07-31-2025 Platelet mean volume (Bld) [Entitic vol] 9.3 fL Normal 6.2-12.0 Comment on above: Order Comment: 107.1 Performed By: #### L 501.6710, L101.9900 #### Laboratory [address] [place], [address] Platelet countOrdered By: Moreno on 07-31-2025 Platelets (Bld) [#/Vol] 353 10*3/uL Normal 150-450 Comment on above: Order Comment: 107.1 Performed By: #### L 501.6710, L101.9900 #### Laboratory [address] [place], [address] Potassium measurement (mass/ volume)Ordered By: Mario Mak on 07-31-2025 Potassium (Unsp spec) [Mass/Vol] 4.2 mmol/L 3.3-5.1 Serum creatinine measurement (mass/volume)Ordered By: Mario Mak on 07-31-2025 Creatinine [Mass/Vol] 1.00 mg/dL Normal 0.70-1.20 [facility] Comment on above: Order Comment: 107.1 Performed By: #### L 501.6710, L101.9900 #### Laboratory [address] [place], [address] Serum globulin measurementOr dered By: Mario Mak on 07-31-2025 Globulin (S) [Mass/Vol] 2.2 g/dL Normal 2.2-4.2 [facility] Comment on above: Order Comment: 107.1 Performed By: #### L 501.6710, L101.9900 #### Laboratory [address] [place] [place], [address] Serum glucose measurement (m ass/volume)Ordered By: Mario Mak on 07-31-2025 Glucose [Mass/Vol] 148 mg/dL High 70-99 [facility] Comment on above: Order Comment: 107.1 Performed By: #### L 501.6710, L101.9900 #### Laboratory [address] [place], [address] Serum or plasma alanine melara otransferase (ALT) measurementOrdered By: Mario Mak on 07-31-2025 ALT [Catalytic activity/Vol] 22 U/L Normal <=34 Comment on above: Order Comment: 107.1 Performed By: #### L 501.6710, L101.9900 #### Laboratory [address] [place], [place], [address] Serum or plasma albumin roma urement (mass/volume)Ordered By: Mario Mak on 07-31-2025 Albumin [Mass/Vol] 3.3 g/dL Low 3.4-4.8 [facility] Comment on above: Order Comment: 107.1 Performed By: #### L 501.6710, L101.9900 #### Laboratory [address] [place], [address] Serum or plasma albumin/glob ulin mass ratioOrdered By: Mario Mak on 07-31-2025 Albumin/Globulin [Mass ratio] 1.5 {ratio} Normal 0.9-2.4 Comment on above: Order Comment: 107.1 Performed By: #### L 501.6710, L101.9900 #### Laboratory [address] [place], [address] Serum or plasma alkaline krystal sphatase measurementOrdered By: Mario Mak on 07-31-2025 ALP [Catalytic activity/Vol] 106 U/L High 35-104 Serum or plasma calcium roma urement (mass/volume)Ordered By: Mario Mak on 07-31-2025 Calcium [Mass/Vol] 8.7 mg/dL Normal 7.6-11.0 [facility] Comment on above: Order Comment: 107.1 Performed By: #### L 501.6710, L101.9900 #### Laboratory [address] [place], [address] Serum or plasma urea nitroge n measurement (mass/volume)Ordered By: Mario Mak on 07-31-2025 Urea nitrogen [Mass/Vol] 28 mg/dL High 4-19 Comment on above: Order Comment: 107.1 Performed By: #### L 501.6710, L101.9900 #### Laboratory [address] [place], [address] Sodium levelOrdered By: Mario Mak on 07-31-2025 Sodium [Moles/Vol] 139 mmol/L Normal 133-145 [facility] Comment on above: Order Comment: 107.1 Performed By: #### L 501.6710, L101.9900 #### Laboratory [address] [place], [address] Total proteinOrdered By: Shwetha Mak on 07-31-2025 Protein [Mass/Vol] 5.5 g/dL Low 5.9-8.4 [facility] White blood cell (WBC) count Ordered By: Mario Mka on 07-31-2025 WBC (Bld) [#/Vol] 6.8 10*3/uL Normal 4.4-11.0 [facility] Comment on above: Order Comment: 107.1 Performed By: #### L 501.6710, L101.9900 #### Laboratory [address] [place], [address] CRPon 07-22-2025 C-REACTIVE PROT 7.78 mg/L High 0.0-3.0 Comment on above: Order Comment: 107-1 Performed By: #### L 400.0001, M100.2200 #### Laboratory [address] [place], [address] Erythrocyte Sed Rateon 07-22 SED RATE 29 mm/hr Normal 0-30 Comment on above: Order Comment: 107-1 Performed By: #### L 400.0001, M100.2200 #### Laboratory [address] [place], [address] Erythrocyte sedimentation ra teOrdered By: Mario Mak on 07-22-2025 ESR (Bld) [Velocity] 29 mm/h 0-30 [facility] Serum or plasma C reactive p rotein measurement (mass/volume)Ordered By: Maroi Mak on 07-22-2025 CRP [Mass/Vol] 7.78 mg/L High 0.0-3.0 [facility] 07-05-2025 CNPN Telephone (RAAFVC) YUSUF MEDINA ([id number]) 1935 F [place] Date Time Provider Department 07/05/25 MARCO A MERIDA During your visit today, we recorded the following information about you: Allergies As of Date: 07/05/2025 (No Known Allergies) Date Reviewed: 02/13/2025 Reviewed by: Margie Steiner RN - Fully Assessed Primary Visit Diagnosis:Abnormal finding of diagnostic imaging [R93.89] Order(s):CONSULT TO [facility] [[id number]] Order #: [id number]: 1 FUTURE Prescriptions as of 07/05/2025 - [...] this patient by: CAREGIVER José Miguel Swanson [facility] Problem List As Of Date 07/05/2025 Noted [...] Renal dysf (more content not included)... Normal [facility] CRPon 06-24-2025 C-REACTIVE PROT < 3.00 Normal 0.0-3.0 Comment on above: Order Comment: 107.1 Performed By: #### L 101.9900, L501.6710 #### Laboratory [address] [place], [address] Erythrocyte Sed Rateon 06-24 SED RATE 15 mm/hr Normal 0-30 Comment on above: Order Comment: 107.1 Performed By: #### L 101.9900, L5.6710 #### Laboratory [address] [place], [address] Erythrocyte sedimentation ra teOrdered By: Mario Mak on 06-24-2025 ESR (Bld) [Velocity] 15 mm/h 0-30 [facility] Serum or plasma C reactive p rotein measurement (mass/volume)Ordered By: Mario Mak on 06-24-2025 CRP [Mass/Vol] mg/L 0.0-3.0 CDIFF (PCR)on 06-20-2025 CDIFF Pending [phone] NAP1-B1 Presumptive Negative *for epidemiolologic???use C. Diff PCR Negative- No toxigenic C. Diff Detected Normal Comment on above: Performed By: #### L 400.0001, M100.2200 #### Laboratory [address] [place], [place], [address] Clostridium difficile detect ion by polymerase chain reactionOrdered By: Mario Mak on 06-20-2025 C. difficile DNA NELIA+probe Ql (Unsp spec) Hemoglobin A1con 06-04-2025 HbA1c (Bld) [Mass fraction] 7.2 % High <=5.6 Comment on above: Order Comment: 107.1 Result Comment: Norm al < 5.7 % Prediabetic 5.7 - 6.4 % Diabetic >or= 6.5 % Please note range changes. Performed By: #### L 101.9900, L501.6710 #### Laboratory [place], [address] Hemoglobin A1c percentageOrd ered By: Mario Mak on 06-04-2025 HbA1c (Bld) [Mass fraction] 7.2 % High <5.7 Comment on above: Normal < 5.7 % Predi abetic 5.7 - 6.4 % Diabetic >or= 6.5 % Please note range changes. Arti 05-28-2025 DRAKEN Telephone (KamidaUATomy) YUSUF MEDINA ([id number]) 1935 [facility] Date Time Provider Department 05/28/25 TYESHA [...] this patient by: CAREGIVER José Miguel Swanson [facility] Problem List As Of Date 05/28/2025 Noted [...] 05/11/2016 Hi (more content not included)... Normal [facility] CRPon 05-27-2025 C-REACTIVE PROT < 3.00 Normal 0.0-3.0 Comment on above: Order Comment: 107.1 Performed By: #### L 501.6710, L101.9900 #### Laboratory [address] [place], [place], [address] Erythrocyte Sed Rateon 05-27 SED RATE 14 mm/hr Normal 0-30 Comment on above: Order Comment: 107.1 Performed By: #### L 501.6710, L101.9900 #### Laboratory [address] [place], [place], [address] Erythrocyte sedimentation ra teOrdered By: Mario Mak on 05-27-2025 ESR (Bld) [Velocity] 14 mm/h 0-30 [facility] Serum or plasma C reactive p rotein measurement (mass/volume)Ordered By: Mario Mak on 05-27-2025 CRP [Mass/Vol] mg/L 0.0-3.0 CNPNon 05-01-2025 DRAKEN Telephone (MARJORIE) YUSUF MEDINA ([id number]) 1935 F [place] Date Time Provider Department [...] 10:30 AM Signed Called and spoke to [id number]-rul, Demetria. Patient is in a long-term care facility. Called facility [phone], but unable to speak to nurse as [...] this patient by: CAREGIVER José Miguel Swanson [facility] Problem List As Of Date 05/01/2025 Noted [...] 10/31/2010 09/23/2014 (more content not included)... Normal [facility] CRPon 04-29-2025 C-REACTIVE PROT 21.00 mg/L High 0.0-3.0 Comment on above: Order Comment: 107.1 Performed By: #### L 400.0001, M100.2200 #### Laboratory [address] [place], [place], [address] Erythrocyte Sed Rateon 04-29 SED RATE 32 mm/hr High 0-30 Comment on above: Order Comment: 107.1 Performed By: #### L 400.0001, M100.2200 #### Laboratory [address] [place], [address] Erythrocyte sedimentation ra teOrdered By: Mario Mak on 04-29-2025 ESR (Bld) [Velocity] 32 mm/h High 0-30 [facility] Serum or plasma C reactive p rotein measurement (mass/volume)Ordered By: Mario Mak on 04-29-2025 CRP [Mass/Vol] 21.00 mg/L High 0.0-3.0 Urine Cultureon 04-28-2025 URC 107-1 #2 Below infection level. PROBABLE PROTEUS SPECIES Escherichia coli Bison Count 11,000-25,000 Gram negative anabell Gram negative [...] TMP SMX Islt HEMANT <=20 S Normal Comment on above: Performed By: #### L 400.0001, M100.2200 #### Laboratory [facility] [address] [place], [place], [address] Bilirubin Test strip Ql (U)O rdered By: Mario Mak on 04-26-2025 Bilirubin Ql (U) Negative Negative Hyaline casts LM.LPF (Urine sed) [#/Area]Ordered By: Mario Mak on 04-26-2025 Hyaline casts (Urine sed) [#/Area] 5 /[LPF] 0-5 Ketones Test strip Ql (U)Ord ered By: Mario Mak on 04-26-2025 Ketones Ql (U) Negative Negative Microscopic analysis of urin e for red blood cells (RBC)Ordered By: Mario Mka on 04-26-2025 Microscopic analysis of urine for red blood cells (RBC) 0 SEEN /hpf 0-5 Mucus LM Ql (Urine sed)Order ed By: Mario Mak on 04-26-2025 Mucus Ql (Urine sed) 0 SEEN /hpf [facility] Nitrite Test strip Ql (U)Ord ered By: Mario Mak on 04-26-2025 Nitrite Ql (U) Negative Negative Protein Test strip Ql (U)Ord ered By: Mario Mak on 04-26-2025 Protein Ql (U) 100 mg/dl High Negative Squamous epithelial cells de tection in urine sediment by light microscopyOrdered By: Mario Mak on 04-26-2025 Epithelial cells.squamous LM Ql (Urine sed) 5-10 SEEN /hpf 5-10 Urinalysis, Completeon 04-26 CAST,FINE GRAN 0-5 SEEN Normal 0-5 Comment on above: Order Comment: 107-1 CLEAN CATCH Performed By: #### L 400.0001, M100.0 #### Laboratory [address] [place], [address] CAST,HYALINE 5-10 SEEN Normal 0-5 Comment on above: Order Comment: 107-1 CLEAN CATCH Performed By: #### L 400.0001, M100.0 #### Laboratory [address] [place], [address] BACTERIA 1+ /hpf Normal None Seen Comment on above: Order Comment: 107-1 CLEAN CATCH Performed By: #### L 400.0001, M100.0 #### Laboratory [address] [place], [address] EPI,SQUAMOUS 5-10 SEEN Normal 5-10 Comment on above: Order Comment: 107-1 CLEAN CATCH Performed By: #### L 400.0001, M100.2200 #### Laboratory [address] [place], [address] WBC 0-5 SEEN Normal 0-5 Comment on above: Order Comment: 107-1 CLEAN CATCH Performed By: #### L 400.0001, M100.2200 #### Laboratory [address] [place], [address] Mucus Ql (Urine sed) 0 SEEN Normal [facility] Comment on above: Order Comment: 107-1 CLEAN CATCH Performed By: #### L 400.0001, M100.2200 #### Laboratory [address] [place], [address] RBC 0 SEEN Normal 0-5 Comment on above: Order Comment: 107-1 CLEAN CATCH Performed By: #### L 400.0001, M100.2200 #### Laboratory [address] [place], [address] Urine clarityOrdered By: Shwetha Mak on 04-26-2025 Clarity (U) Clear Clear Urine color determinationOrd ered By: Mario Mak on 04-26-2025 Color (U) Yellow Yellow Urine cultureOrdered By: Shwetha Mak on 04-26-2025 Bacteria identified Cx Nom (U) Escherichia coli Abnormal Bacteria identified Cx Nom (U) Negative Abnormal Urine glucose detectionOrder ed By: Mario Mak on 04-26-2025 Glucose Ql (U) Normal mg/dl Normal Urine leukocyte esterase det ection by dipstickOrdered By: Mario Mak on 04-26-2025 Leukocyte esterase Test strip Ql (U) 25 /ul High Negative Urine pHOrdered By: Mario reece on 04-26-2025 pH (U) 6.0 [pH] 5.0 - 8.0 Urine sediment bacteria coun t by microscopy (number/high power field)Ordered By: Mario Mak on 04-26-2025 Bacteria LM.HPF (Urine sed) [#/Area] 1 /[HPF] None Seen Urine sediment fine granular cast count by microscopy (number/low power field)Ordered By: Mario Mak on 04-26-2025 Fine Granular Casts LM.LPF (Urine sed) [#/Area] 0-5 SEEN /lpf 0-5 Urine specific gravity measu rementOrdered By: Mario Mak on 04-26-2025 Specific gravity (U) [Rel density] 1.020 1.002-1.030 Urine urobilinogen measureme ntOrdered By: Mario Mak on 04-26-2025 Urobilinogen Ql (U) Normal mg/dl Normal [facility] White blood cell countOrdere d By: Mario Mak on 04-26-2025 White blood cell count 0-5 SEEN /hpf 0-5 Urine Cultureon 04-12-2025 URC 107-1 #2 Probable Proteus species. Below infection level. Escherichia coli Bison Count 50,000-80,000 Gram negative anabell Gram negative [...] TMP SMX Islt HEMANT <=20 S Normal Comment on above: Performed By: #### L 400.0001, M100.2200 #### Laboratory [address] [place], [address] Urinalysis, Completeon 04-11 CAST,HYALINE 0-5 SEEN Normal 0-5 Comment on above: Order Comment: PLEAS E ADD TO 04/10CLEAN CATCH Performed By: #### L 400.0001, M100.2200 #### Laboratory [address] [place], [address] BACTERIA 1+ /hpf Normal None Seen Comment on above: Order Comment: PLEAS E ADD TO 04/10CLEAN CATCH Performed By: #### L 400.0001, M100.2200 #### Laboratory [address] [place], [address] EPI,SQUAMOUS 0-5 SEEN Normal 5-10 Comment on above: Order Comment: PLEAS E ADD TO 04/10CLEAN CATCH Performed By: #### L 400.0001, M100.2200 #### Laboratory [address] [place], [address] RBC 0-5 SEEN Normal 0-5 Comment on above: Order Comment: PLEAS E ADD TO 04/10CLEAN CATCH Performed By: #### L 400.0001, M100.2200 #### Laboratory [address] [place], [address] WBC 5-10 SEEN Normal 0-5 Comment on above: Order Comment: PLEAS E ADD TO 04/10CLEAN CATCH Performed By: #### L 400.0001, M100.2200 #### Laboratory [address] [place], [address] Mucus Ql (Urine sed) 0 SEEN Normal [facility] Comment on above: Order Comment: PLEAS E ADD TO 04/10CLEAN CATCH Performed By: #### L 400.0001, M100.2200 #### Laboratory [address] [place], [address] Bilirubin Test strip Ql (U)O rdered By: Mario Mak on 04-10-2025 Bilirubin Ql (U) Negative Negative Hyaline casts LM.LPF (Urine sed) [#/Area]Ordered By: Mario Mak on 04-10-2025 Hyaline casts (Urine sed) [#/Area] 0 /[LPF] 0-5 Ketones Test strip Ql (U)Ord ered By: Mario Mak on 04-10-2025 Ketones Ql (U) Negative Negative Microscopic analysis of urin e for red blood cells (RBC)Ordered By: Mario Mak on 04-10-2025 Microscopic analysis of urine for red blood cells (RBC) 0-5 SEEN /hpf 0-5 Mucus LM Ql (Urine sed)Order ed By: Mario Mak on 04-10-2025 Mucus Ql (Urine sed) 0 SEEN /hpf [facility] Nitrite Test strip Ql (U)Ord ered By: Mario Mak on 04-10-2025 Nitrite Ql (U) Negative Negative Protein Test strip Ql (U)Ord ered By: Mario Mak on 04-10-2025 Protein Ql (U) 100 mg/dl High Negative Squamous epithelial cells de tection in urine sediment by light microscopyOrdered By: Mario Mak on 04-10-2025 Epithelial cells.squamous LM Ql (Urine sed) 0-5 SEEN /hpf 5-10 Urine clarityOrdered By: Shwetha Mak on 04-10-2025 Clarity (U) Clear Clear Urine color determinationOrd ered By: Mario Mak on 04-10-2025 Color (U) Yellow Yellow Urine cultureOrdered By: Shwetha Mak on 04-10-2025 Bacteria identified Cx Nom (U) Escherichia coli Abnormal Bacteria identified Cx Nom (U) Negative Abnormal Urine glucose detectionOrder ed By: Mario Mak on 04-10-2025 Glucose Ql (U) Normal mg/dl Normal Urine leukocyte esterase det ection by dipstickOrdered By: Mario Mak on 04-10-2025 Leukocyte esterase Test strip Ql (U) 100 /ul High Negative Urine pHOrdered By: Mario reece on 04-10-2025 pH (U) 6.0 [pH] 5.0 - 8.0 Urine sediment bacteria coun t by microscopy (number/high power field)Ordered By: Mario Mak on 04-10-2025 Bacteria LM.HPF (Urine sed) [#/Area] 1 /[HPF] None Seen Urine specific gravity measu rementOrdered By: Mario Mak on 04-10-2025 Specific gravity (U) [Rel density] 1.015 1.002-1.030 Urine urobilinogen measureme ntOrdered By: Mario Mak on 04-10-2025 Urobilinogen Ql (U) Normal mg/dl Normal [facility] White blood cell countOrdere d By: Mario Mak on 04-10-2025 White blood cell count 5-10 SEEN /hpf 0-5 CRPon 04-01-2025 C-REACTIVE PROT < 3.00 Normal 0.0-3.0 Comment on above: Order Comment: 107-1 CLEAN CATCH Performed By: #### L 400.0001, M1 #### Laboratory [address] [place], [place], [address] Erythrocyte Sed Rateon 04-01 SED RATE 14 mm/hr Normal 0-30 Comment on above: Order Comment: 107-1 CLEAN CATCH Performed By: #### L 400.0001, #### Laboratory [address] [place], [place], [id number] Erythrocyte sedimentation ra teOrdered By: Mario Mak on 04-01-2025 ESR (Bld) [Velocity] 14 mm/h 0-30 [facility] Serum or plasma C reactive p rotein measurement (mass/volume)Ordered By: Mario Mak on 04-01-2025 CRP [Mass/Vol] mg/L 0.0-3.0 Hemoglobin A1c percentageOrd ered By: Mario Mak on 03-12-2025 HbA1c (Bld) [Mass fraction] 7.4 % High <=5.6 Comment on above: Normal < 5.7 % Predi abetic 5.7 - 6.4 % Diabetic >or= 6.5 % Please note range changes. Order Comment: 107.1 Result Comment: Norm al < 5.7 % Prediabetic 5.7 - 6.4 % Diabetic >or= 6.5 % Please note range changes. Performed By: #### L 400.0001, #### Laboratory [address] [place], [place], [id number] CRPon 03-04-2025 C-REACTIVE PROT < 3.00 Normal 0.0-3.0 Comment on above: Order Comment: 107-1 CLEAN CATCH Performed By: #### L 400.0001, #### Laboratory [address] [place], [place], [address] Erythrocyte Sed Rateon 03-04 SED RATE 12 mm/hr Normal 0-30 Comment on above: Order Comment: 107.1 Performed By: #### L 501.6710, L101.9900 #### Laboratory [address] [place], [place], [address] Erythrocyte sedimentation ra teOrdered By: Mario Mak on 03-04-2025 ESR (Bld) [Velocity] 12 mm/h 0-30 [facility] Serum or plasma C reactive p rotein measurement (mass/volume)Ordered By: Mario Mak on 03-04-2025 CRP [Mass/Vol] mg/L 0.0-3.0 CNOVon 02-13-2025 CNOV Normal [facility] CNPNon 02-11-2025 JACINTA Telephone (MARJORIE) YUSUF MEDINA ([id number]) 1935 [facility] Date Time Provider Department 02/11/25 TYESHA [...] this patient by: CAREGIVER José Miguel Swanson [facility] Problem List As Of Date 02/11/2025 Noted [...] arthritis [M16.10] (more content not included)... Normal [facility] CRPon 02-04-2025 C-REACTIVE PROT < 3.00 Normal 0.0-3.0 Comment on above: Order Comment: 107.1 Performed By: #### L 101.9900, L501.6710 #### Laboratory [address] [place], [place], [id number] CRP [Mass/Vol]Ordered By: Moreno on 02-04-2025 C-Reactive Protein Extended Range < 3.00 mg/L 0.0-3.0 Erythrocyte Sed Rateon 02-04 SED RATE 23 mm/hr Normal 0-30 Comment on above: Order Comment: 107.1 Performed By: #### L 101.9900, L501.6710 #### Laboratory [address] [place], [place], [address] Erythrocyte sedimentation ra teOrdered By: Mario Mak on 02-04-2025 ESR (Bld) [Velocity] 23 mm/h 0-30 [facility] Serum or plasma C reactive p rotein measurement (mass/volume)Ordered By: Mario Mak on 02-04-2025 CRP [Mass/Vol] mg/L 0.0-3.0 CNOVon 01-16-2025 CNOV [facility] Absolute lymphocyte countOrd ered By: Mario Mak on 01-15-2025 Lymphocytes Auto (Unsp spec) [#/Vol] 1.16 10*3/uL 0.83-4.51 Absolute neutrophil countOrd ered By: Mario Mak on 01-15-2025 Neutrophils (Bld) [#/Vol] 5.9 10*3/uL 2.0-7.7 Anion gap in Serum or Plasma Ordered By: Mario Mak on 01-15-2025 Anion gap [Moles/Vol] 12 mmol/L 5-15 [facility] Automated lymphocyte count a s percentage of total leukocytesOrdered By: Mario Mak on 01-15-2025 Lymphocytes/100 WBC Auto (Unsp spec) 14.3 % Low 19-41 BUN/creatinine ratioOrdered By: Mario Mak on 01-15-2025 Urea nitrogen/Creatinine [Mass ratio] 35.3 mg/mg High 10-20 Basic Metabolic Profile (BMP )on 01-15-2025 BUN/CRE 35.3 RATIO High 10-20 Comment on above: Order Comment: 107.1 Performed By: #### L 100.0100, L500.2500 #### Laboratory [address] [place], [address] Calcium [Mass/Vol] 9.1 mg/dL Normal 7.6-11.0 [facility] Comment on above: Order Comment: 107.1 Performed By: #### L 100.0100, L500.2500 #### Laboratory [address] [place], [address] Chloride [Moles/Vol] 101 mmol/L Normal 98-108 [facility] Comment on above: Order Comment: 107.1 Performed By: #### L 100.0100, L500.2500 #### Laboratory [address] [place], [address] CO2 [Moles/Vol] 26.0 mmol/L Normal 21.0-32.0 Comment on above: Order Comment: 107.1 Performed By: #### L 100.0100, L500.2500 #### Laboratory [address] [place], [address] Creatinine [Mass/Vol] 0.76 mg/dL Normal 0.70-1.20 [facility] Comment on above: Order Comment: 107.1 Performed By: #### L 100.0100, L500.2500 #### Laboratory [address] [place], [address] GAP 12 Normal 5-15 Comment on above: Order Comment: 107.1 Performed By: #### L 100.0100, L500.2500 #### Laboratory [address] [place], [address] GFR/1.73 sq M.predicted among non-blacks MDRD (S/P/Bld) [Vol rate/Area] 75 mL/min/{1.73_m2} Normal >60 Comment on above: Order Comment: 107.1 Result Comment: mL/m in/1.73m2 CKD-EPI Creatinine Equation (2020) Performed By: #### L 100.0100, L500.2500 #### Laboratory [address] [place], [address] Glucose [Mass/Vol] 108 mg/dL High 70-99 [facility] Comment on above: Order Comment: 107.1 Performed By: #### L 100.0100, L500.2500 #### Laboratory [address] [place], [address] Potassium [Moles/Vol] 4.6 mmol/L Normal 3.3-5.1 [facility] Comment on above: Order Comment: 107.1 Performed By: #### L 100.0100, L500.2500 #### Laboratory [address] [place], [address] Sodium [Moles/Vol] 139 mmol/L Normal 133-145 [facility] Comment on above: Order Comment: 107.1 Performed By: #### L 100.0100, L500.2500 #### Laboratory [address] [place], [address] Urea nitrogen [Mass/Vol] 27 mg/dL High 4-19 Comment on above: Order Comment: 107.1 Performed By: #### L 100.0100, L500.2500 #### Laboratory [address] [place], [address] Basophil percentageOrdered B y: Mario Mak on 01-15-2025 Basophils/100 WBC (Bld) 0.5 % 0-1 [facility] CBC W/Diff, Automatedon Absolute Lymph 1.16 X10 3/uL Normal 0.83-4.51 Comment on above: Order Comment: 107.1 Performed By: #### L 100.0100, L500.2500 #### Laboratory [address] [place], [address] Absolute Neut 5.9 X10 3/uL Normal 2.0-7.7 Comment on above: Order Comment: 107.1 Performed By: #### L 100.0100, L500.2500 #### Laboratory [address] [place], [address] Basophils/100 WBC (Bld) 0.5 % Normal 0-1 [facility] Comment on above: Order Comment: 107.1 Performed By: #### L 100.0100, L500.2500 #### Laboratory [address] [place], [address] Eosinophils/100 WBC (Bld) 4.1 % Normal 0-5 Comment on above: Order Comment: 107.1 Performed By: #### L 100.0100, L500.2500 #### Laboratory [address] [place], [address] Erythrocyte distribution width (RBC) [Ratio] 16.0 % High 11.6-14.6 Comment on above: Order Comment: 107.1 Performed By: #### L 100.0100, L500.2500 #### Laboratory [address] [place], [address] Hematocrit (Bld) [Volume fraction] 29.0 % Low 37-47 Comment on above: Order Comment: 107.1 Performed By: #### L 100.0100, L500.2500 #### Laboratory [address] [place], [address] Hemoglobin (Bld) [Mass/Vol] 9.4 g/dL Low 12.0-15.0 Comment on above: Order Comment: 107.1 Performed By: #### L 100.0100, L500.2500 #### Laboratory [address] [place], [address] IG% 1.100 High 0.0-0.9 Comment on above: Order Comment: 107.1 Result Comment: IG% - Immature Granulocytes (promyelocytes, myelocytes and metamyelocytes) > 1% indicates that a LEFT SHIFT is Present. Performed By: #### L 100.0100, L500.2500 #### Laboratory [address] [place], [address] Lymphocytes/100 WBC (Bld) 14.3 % Low 19-41 Comment on above: Order Comment: 107.1 Performed By: #### L 100.0100, L500.2500 #### Laboratory [address] [place], [address] MCH (RBC) [Entitic mass] 29.5 pg Normal 27.0-32.0 Comment on above: Order Comment: 107.1 Performed By: #### L 100.0100, L500.2500 #### Laboratory [address] [place], [address] MCHC (RBC) [Mass/Vol] 32.4 g/dL Normal 32-36 [facility] Comment on above: Order Comment: 107.1 Performed By: #### L 100.0100, L500.2500 #### Laboratory [address] [place], [address] MCV (RBC) [Entitic vol] 90.9 fL Normal 81-99 [facility] Comment on above: Order Comment: 107.1 Performed By: #### L 100.0100, L500.2500 #### Laboratory [address] [place], [address] Monocytes/100 WBC (Bld) 8.1 % Normal 0-10 [facility] Comment on above: Order Comment: 107.1 Performed By: #### L 100.0100, L500.2500 #### Laboratory [address] [place], [address] Neutrophils/100 WBC (Bld) 71.9 % High 47-70 Comment on above: Order Comment: 107.1 Performed By: #### L 100.0100, L500.2500 #### Laboratory [address] [place], [address] Nucleated RBC (Bld) [#/Vol] 0 10*3/uL Normal 0-5 Comment on above: Order Comment: 107.1 Performed By: #### L 100.0100, L500.2500 #### Laboratory [address] [place], [address] Platelet mean volume (Bld) [Entitic vol] 9.4 fL Normal 6.2-12.0 Comment on above: Order Comment: 107.1 Performed By: #### L 100.0100, L500.2500 #### Laboratory [address] [place], [address] Platelets (Bld) [#/Vol] 390 10*3/uL Normal 150-450 Comment on above: Order Comment: 107.1 Performed By: #### L 100.0100, L500.2500 #### Laboratory [address] [place], [address] RBC (Bld) [#/Vol] 3.19 10*6/uL Low 4.2-5.4 [facility] Comment on above: Order Comment: 107.1 Performed By: #### L 100.0100, L500.2500 #### Laboratory [address] [place], [address] RDW SD 53.4 fl High 35.1-43.9 Comment on above: Order Comment: 107.1 Performed By: #### L 100.0100, L500.2500 #### Laboratory [address] [place], [address] WBC (Bld) [#/Vol] 8.1 10*3/uL Normal 4.4-11.0 [facility] Comment on above: Order Comment: 107.1 Performed By: #### L 100.0100, L500.2500 #### Laboratory [address] [place], [address] Carbon dioxide, total [Moles /volume] in Central venous bloodOrdered By: Mario Mak on 01-15-2025 CO2 [Moles/Vol] 26.0 mmol/L 21.0-32.0 Chloride assayOrdered By: Moreno on 01-15-2025 Chloride [Moles/Vol] 101 mmol/L 98-108 [facility] Eosinophil percentageOrdered By: Mario Mak on 01-15-2025 Eosinophils/100 WBC (Bld) 4.1 % 0-5 Erythrocyte distribution wid th (RBC) [Ratio]Ordered By: Mario Mak on 01-15-2025 Erythrocyte distribution width (RBC) [Entitic vol] 53.4 fL High 35.1-43.9 Erythrocyte distribution wid th ratioOrdered By: Mario Mak on 01-15-2025 Erythrocyte distribution width (RBC) [Ratio] 16.0 % High 11.6-14.6 Erythrocyte distribution wid th standard deviationOrdered By: Mario Mak on 01-15-2025 Erythrocyte distribution width (RBC) [Ratio] 53.4 fl High 35.1-43.9 GFR/1.73 sq M.predicted ida g non-blacks MDRD (S/P/Bld) [Vol rate/Area]Ordered By: Mario Mak on 01-15-2025 Estimated GFR (MDRD) Non-Af Amer 75 >60 Comment on above: mL/min/1.73m2 CKD-EP I Creatinine Equation (2020) Glomerular filtration rate ( GFR) estimation/1.73 sq m using serum, plasma, or whole bOrdered By: Mario Mak on 01-15-2025 GFR/1.73 sq M.predicted among non-blacks MDRD (S/P/Bld) [Vol rate/Area] 75 mL/min/{1.73_m2} >60 Comment on above: mL/min/1.73m2 CKD-EP I Creatinine Equation (2020) Hematocrit Auto (Bld) [Volum e fraction]Ordered By: Mario Mak on 01-15-2025 Hematocrit (Bld) [Volume fraction] 29.0 % Low 37-47 Hemoglobin measurementOrdere d By: Mario Mak on 01-15-2025 Hemoglobin (Bld) [Mass/Vol] 9.4 g/dL Low 12.0-15.0 Immature granulocytes/100 WB C Auto (Bld)Ordered By: Mraio Mak on 01-15-2025 Immature granulocytes/100 WBC (Bld) 1.100 % High 0.0-0.9 Comment on above: IG% - Immature Granu locytes (promyelocytes, myelocytes and metamyelocytes) > 1% indicates that a LEFT SHIFT is Present. Lymphocytes Auto (Unsp spec) [#/Vol]Ordered By: Mario Mak on 01-15-2025 Lymphocytes (Bld) [#/Vol] 1.16 10*3/uL 0.83-4.51 Lymphocytes/100 WBC Auto (Un sp spec)Ordered By: Mario Mak on 01-15-2025 Lymphocytes/100 WBC (Bld) 14.3 % Low 19-41 MCV (mean corpuscular volume ) determinationOrdered By: Mario Mak on 01-15-2025 MCV (RBC) [Entitic vol] 90.9 fL 81-99 [facility] Mean corpuscular hemoglobin (MCH) determinationOrdered By: Mario Mak on 01-15-2025 MCH (RBC) [Entitic mass] 29.5 pg 27.0-32.0 Mean corpuscular hemoglobin concentration (MCHC) determinationOrdered By: Mario Mak on 01-15-2025 MCHC (RBC) [Mass/Vol] 32.4 g/dL 32-36 [facility] Mean platelet volume determi nationOrdered By: Mario Mak on 01-15-2025 Platelet mean volume (Bld) [Entitic vol] 9.4 fL 6.2-12.0 Monocyte percentageOrdered B y: Mario Mak on 01-15-2025 Monocytes/100 WBC (Bld) 8.1 % 0-10 [facility] Neutrophil percentageOrdered By: Mario Mak on 01-15-2025 Neutrophils/100 WBC (Bld) 71.9 % High 47-70 Nucleated red blood cell per centageOrdered By: Mario Mak on 01-15-2025 Nucleated RBC/100 WBC (Bld) [Ratio] 0 % 0-5 Platelet countOrdered By: Moreno on 01-15-2025 Platelets (Bld) [#/Vol] 390 10*3/uL 150-450 Potassium (Unsp spec) [Mass/ Vol]Ordered By: Mario Mak on 01-15-2025 Potassium [Moles/Vol] 4.6 mmol/L 3.3-5.1 [facility] Potassium measurement (mass/ volume)Ordered By: Mario Mak on 01-15-2025 Potassium (Unsp spec) [Mass/Vol] 4.6 mmol/L 3.3-5.1 RBC Auto (Bld) [#/Vol]Ordere d By: Mario Mak on 01-15-2025 RBC (Bld) [#/Vol] 3.19 10*6/uL Low 4.2-5.4 [facility] Serum creatinine measurement (mass/volume)Ordered By: Mario Mak on 01-15-2025 Creatinine [Mass/Vol] 0.76 mg/dL 0.70-1.20 [facility] Serum glucose measurement (m ass/volume)Ordered By: Mario Mak on 01-15-2025 Glucose [Mass/Vol] 108 mg/dL High 70-99 [facility] Serum or plasma calcium roma urement (mass/volume)Ordered By: Mario Mak on 01-15-2025 Calcium [Mass/Vol] 9.1 mg/dL 7.6-11.0 [facility] Serum or plasma urea nitroge n measurement (mass/volume)Ordered By: Mario Mak on 01-15-2025 Urea nitrogen [Mass/Vol] 27 mg/dL High 4-19 Sodium levelOrdered By: Mario Mak on 01-15-2025 Sodium [Moles/Vol] 139 mmol/L 133-145 [facility] White blood cell (WBC) count Ordered By: Mario Mak on 01-15-2025 WBC (Bld) [#/Vol] 8.1 10*3/uL 4.4-11.0 [facility] Absolute lymphocyte countOrd ered By: Mario Mak on 01-07-2025 Lymphocytes Auto (Unsp spec) [#/Vol] 0.98 10*3/uL 0.83-4.51 Absolute neutrophil countOrd ered By: Mario Mak on 01-07-2025 Neutrophils (Bld) [#/Vol] 5.7 10*3/uL 2.0-7.7 Albumin to globulin ratioOrd ered By: Mario Mak on 01-07-2025 Albumin/Globulin [Mass ratio] 0.6 {ratio} Low 0.9-2.4 Automated lymphocyte count a s percentage of total leukocytesOrdered By: Mario Mak on 01-07-2025 Lymphocytes/100 WBC Auto (Unsp spec) 12.6 % Low 19-41 Basophil percentageOrdered B y: Mario Mak on 01-07-2025 Basophils/100 WBC (Bld) 0.5 % 0-1 [facility] Bilirubin, totalOrdered By: Mario Mak on 01-07-2025 Bilirubin [Mass/Vol] 0.20 mg/dL 0.20-1.00 [facility] Comment on above: For patients on eltr ombopag therapy, use of Dimension [place] TBIL is not recommended. Blood urea nitrogen (BUN)/cr eatinine ratioOrdered By: Mario Mak on 01-07-2025 Urea nitrogen/Creatinine [Mass ratio] 37.0 mg/mg High 10-20 CBC W/Diff, Automatedon 12-16 Absolute Lymph 0.98 X10 3/uL Normal 0.83-4.51 Comment on above: Order Comment: 107-1 Performed By: #### L 101.9900, L100.0100, L500.4050 #### Laboratory [address] [place], [address] Absolute Neut 5.7 X10 3/uL Normal 2.0-7.7 Comment on above: Order Comment: 107-1 Performed By: #### L 101.9900, L100.0100, L500.4050 #### Laboratory [address] [place], [address] Basophils/100 WBC (Bld) 0.5 % Normal 0-1 [facility] Comment on above: Order Comment: 107-1 Performed By: #### L 101.9900, L100.0100, L500.4050 #### Laboratory [address] [place], [address] Eosinophils/100 WBC (Bld) 3.2 % Normal 0-5 Comment on above: Order Comment: 107-1 Performed By: #### L 101.9900, L100.0100, L500.4050 #### Laboratory [address] [place], [address] Erythrocyte distribution width (RBC) [Ratio] 16.5 % High 11.6-14.6 Comment on above: Order Comment: 107-1 Performed By: #### L 101.9900, L100.0100, L500.4050 #### Laboratory [address] [place], [address] Hematocrit (Bld) [Volume fraction] 28.5 % Low 37-47 Comment on above: Order Comment: 107-1 Performed By: #### L 101.9900, L100.0100, L500.4050 #### Laboratory [address] [place], [address] Hemoglobin (Bld) [Mass/Vol] 8.9 g/dL Low 12.0-15.0 Comment on above: Order Comment: 107-1 Performed By: #### L 101.9900, L100.0100, L500.4050 #### Laboratory [address] [place], [address] IG% 0.600 Normal 0.0-0.9 Comment on above: Order Comment: 107-1 Result Comment: IG% - Immature Granulocytes (promyelocytes, myelocytes and metamyelocytes) > 1% indicates that a LEFT SHIFT is Present. Performed By: #### L 101.9900, L100.0100, L500.4050 #### Laboratory [address] [place], [address] Lymphocytes/100 WBC (Bld) 12.6 % Low 19-41 Comment on above: Order Comment: 107-1 Performed By: #### L 101.9900, L100.0100, L500.4050 #### Laboratory [address] [place], [address] MCH (RBC) [Entitic mass] 28.7 pg Normal 27.0-32.0 Comment on above: Order Comment: 107-1 Performed By: #### L 101.9900, L100.0100, L500.4050 #### Laboratory [address] [place], [address] MCHC (RBC) [Mass/Vol] 31.2 g/dL Low 32-36 [facility] Comment on above: Order Comment: 107-1 Performed By: #### L 101.9900, L100.0100, L500.4050 #### Laboratory [address] [place], [address] MCV (RBC) [Entitic vol] 91.9 fL Normal 81-99 [facility] Comment on above: Order Comment: 107-1 Performed By: #### L 101.9900, L100.0100, L500.4050 #### Laboratory [address] [place], [address] Monocytes/100 WBC (Bld) 9.9 % Normal 0-10 [facility] Comment on above: Order Comment: 107-1 Performed By: #### L 101.9900, L100.0100, L500.4050 #### Laboratory [address] [place], [address] Neutrophils/100 WBC (Bld) 73.2 % High 47-70 Comment on above: Order Comment: 107-1 Performed By: #### L 101.9900, L100.0100, L500.4050 #### Laboratory [address] [place], [address] Nucleated RBC (Bld) [#/Vol] 0 10*3/uL Normal 0-5 Comment on above: Order Comment: 107-1 Performed By: #### L 101.9900, L100.0100, L500.4050 #### Laboratory [address] [place], [address] Platelet mean volume (Bld) [Entitic vol] 9.8 fL Normal 6.2-12.0 Comment on above: Order Comment: 107-1 Performed By: #### L 101.9900, L100.0100, L500.4050 #### Laboratory [address] [place], [address] Platelets (Bld) [#/Vol] 319 10*3/uL Normal 150-450 Comment on above: Order Comment: 107-1 Performed By: #### L 101.9900, L100.0100, L500.4050 #### Laboratory [address] [place], [address] RBC (Bld) [#/Vol] 3.10 10*6/uL Low 4.2-5.4 [facility] Comment on above: Order Comment: 107-1 Performed By: #### L 101.9900, L100.0100, L500.4050 #### Laboratory [address] [place], [address] RDW SD 56.5 fl High 35.1-43.9 Comment on above: Order Comment: 107-1 Performed By: #### L 101.9900, L100.0100, L500.4050 #### Laboratory [address] [place], [address] WBC (Bld) [#/Vol] 7.8 10*3/uL Normal 4.4-11.0 [facility] Comment on above: Order Comment: 107-1 Performed By: #### L 101.9900, L100.0100, L500.4050 #### Laboratory [address] [place], [address] Carbon dioxide measurementOr dered By: aMrio Mak on 01-07-2025 CO2 [Moles/Vol] 28.0 mmol/L 21.0-32.0 Chloride measurementOrdered By: Mario Mak on 01-07-2025 Chloride [Moles/Vol] 105 mmol/L 98-107 [facility] Comprehensive Metabolic Prof ilon 01-07-2025 Albumin [Mass/Vol] 2.1 g/dL Low 3.2-5.0 [facility] Comment on above: Performed By: #### L 501.6710, L101.9900 #### Laboratory [address] [place], [address] Albumin/Globulin [Mass ratio] 0.6 {ratio} Low 0.9-2.4 Comment on above: Performed By: #### L 501.6710, L101.9900 #### Laboratory [address] [place], [address] ALK P 95 U/L Normal 45-117 Comment on above: Performed By: #### L 501.6710, L101.9900 #### Laboratory [address] [place], [address] ALT [Catalytic activity/Vol] U/L Low 13-56 Comment on above: Performed By: #### L 501.6710, L101.9900 #### Laboratory [address] [place], [address] AST [Catalytic activity/Vol] 21 U/L Normal 15-37 Comment on above: Performed By: #### L 501.6710, L101.9900 #### Laboratory [address] [place], [address] Bilirubin [Mass/Vol] 0.20 mg/dL Normal 0.20-1.00 [facility] Comment on above: Result Comment: For patients on eltrombopag therapy, use of Dimension [place] TBIL is not recommended. Performed By: #### L 501.6710, L101.9900 #### Laboratory [address] [place], [address] BUN/CRE 37.0 RATIO High 10-20 Comment on above: Performed By: #### L 501.6710, L101.9900 #### Laboratory [address] [place], [address] CA,Total 8.6 mg/dL Normal 8.5-10.1 Comment on above: Performed By: #### L 501.6710, L101.9900 #### Laboratory [address] [place], [address] Chloride [Moles/Vol] 105 mmol/L Normal 98-107 [facility] Comment on above: Performed By: #### L 501.6710, L101.9900 #### Laboratory [address] [place], [address] CO2 [Moles/Vol] 28.0 mmol/L Normal 21.0-32.0 Comment on above: Performed By: #### L 501.6710, L101.9900 #### Laboratory [address] [place], [address] Creatinine [Mass/Vol] 0.76 mg/dL Normal 0.55-1.02 [facility] Comment on above: Result Comment: The validity of the calculated GFR GFRAA in patients over 70 years has not been determined. Clinical correlation is essential. Performed By: #### L 501.6710, L101.9900 #### Laboratory [address] [place], [address] EST GFR - AA 93 mL/min Normal >60 Comment on above: Result Comment: Afri can [place] GFR Calc Performed By: #### L 501.6710, L101.9900 #### Laboratory [address] [place], [address] GAP 7 Normal 5-15 Comment on above: Performed By: #### L 501.6710, L101.9900 #### Laboratory [address] [place], [address] GFR/1.73 sq M.predicted among non-blacks MDRD (S/P/Bld) [Vol rate/Area] 77 mL/min/{1.73_m2} Normal >60 Comment on above: Result Comment: Non- GFR Calc Performed By: #### L 501.6710, L101.9900 #### Laboratory [address] [place], [address] Globulin (S) [Mass/Vol] 3.4 g/dL Normal 2.2-4.2 [facility] Comment on above: Performed By: #### L 501.6710, L101.9900 #### Laboratory [address] [place], [address] Glucose [Mass/Vol] 58 mg/dL Low 74-106 [facility] Comment on above: Performed By: #### L 501.6710, L101.9900 #### Laboratory [address] [place], [address] Potassium [Moles/Vol] 4.1 mmol/L Normal 3.5-5.1 [facility] Comment on above: Performed By: #### L 501.6710, L101.9900 #### Laboratory [address] [place], [address] Sodium [Moles/Vol] 139 mmol/L Normal 136-145 [facility] Comment on above: Performed By: #### L 501.6710, L101.9900 #### Laboratory [address] [place], [address] T PROT 5.5 g/dL Low 6.4-8.2 Comment on above: Performed By: #### L 501.6710, L101.9900 #### Laboratory [address] [place], [address] Urea nitrogen [Mass/Vol] 28 mg/dL High 7-18 Comment on above: Performed By: #### L 501.6710, L101.9900 #### Laboratory [address] [place], [address] Eosinophil percentageOrdered By: Mario Mak on 01-07-2025 Eosinophils/100 WBC (Bld) 3.2 % 0-5 Erythrocyte Sed Rateon 01-07 SED RATE 41 mm/hr High 0-30 Comment on above: Order Comment: 107-1 Performed By: #### L 101.9900, L100.0100, L500.4050 #### Laboratory [address] [place], [address] Erythrocyte distribution wid th (RBC) [Ratio]Ordered By: Mario Mak on 01-07-2025 Erythrocyte distribution width (RBC) [Entitic vol] 56.5 fL High 35.1-43.9 Erythrocyte distribution wid th ratioOrdered By: Mario Mak on 01-07-2025 Erythrocyte distribution width (RBC) [Ratio] 16.5 % High 11.6-14.6 Erythrocyte distribution wid th standard deviationOrdered By: Mario Mak on 01-07-2025 Erythrocyte distribution width (RBC) [Ratio] 56.5 fl High 35.1-43.9 Erythrocyte sedimentation ra teOrdered By: Mario Mak on 01-07-2025 ESR (Bld) [Velocity] 41 mm/h High 0-30 [facility] Estimated glomerular filtrat ion rate (GFR) AmericanOrdered By: Mario Mak on 01-07-2025 Estimated GFR (MDRD) Amer 93 mL/min >60 Comment on above: GFR Calc Glomerular filtration rate ( GFR) estimationOrdered By: Mario Mak on 01-07-2025 Estimated GFR (MDRD) Non-Af Amer 77 mL/min >60 Comment on above: Non- GFR Calc GFR/1.73 sq M.predicted among non-blacks MDRD (S/P/Bld) [Vol rate/Area] 77 mL/min/{1.73_m2} >60 Comment on above: Non- GFR Calc Glucose measurementOrdered B y: Mario Mak on 01-07-2025 Glucose [Mass/Vol] 58 mg/dL Low 74-106 [facility] Hematocrit Auto (Bld) [Volum e fraction]Ordered By: Mario Mak on 01-07-2025 Hematocrit (Bld) [Volume fraction] 28.5 % Low 37-47 Hemoglobin measurementOrdere d By: Mario Mak on 01-07-2025 Hemoglobin (Bld) [Mass/Vol] 8.9 g/dL Low 12.0-15.0 Immature granulocytes/100 WB C Auto (Bld)Ordered By: Mario Mak on 01-07-2025 Immature granulocytes/100 WBC (Bld) 0.600 % 0.0-0.9 Comment on above: IG% - Immature Granu locytes (promyelocytes, myelocytes and metamyelocytes) > 1% indicates that a LEFT SHIFT is Present. Laboratory - Chemistry and C hemistry - challengeOrdered By: Mario Mak on 01-07-2025 AST [Catalytic activity/Vol] 21 U/L 15-37 Lymphocytes Auto (Unsp spec) [#/Vol]Ordered By: Mario Mak on 01-07-2025 Lymphocytes (Bld) [#/Vol] 0.98 10*3/uL 0.83-4.51 Lymphocytes/100 WBC Auto (Un sp spec)Ordered By: Mario Mak on 01-07-2025 Lymphocytes/100 WBC (Bld) 12.6 % Low 19-41 MCV (mean corpuscular volume ) determinationOrdered By: Mario Mak on 01-07-2025 MCV (RBC) [Entitic vol] 91.9 fL 81-99 [facility] Mean corpuscular hemoglobin (MCH) determinationOrdered By: Mario Mak on 01-07-2025 MCH (RBC) [Entitic mass] 28.7 pg 27.0-32.0 Mean corpuscular hemoglobin concentration (MCHC) determinationOrdered By: Mario Mak on 01-07-2025 MCHC (RBC) [Mass/Vol] 31.2 g/dL Low 32-36 [facility] Mean platelet volume determi nationOrdered By: Mario Mak on 01-07-2025 Platelet mean volume (Bld) [Entitic vol] 9.8 fL 6.2-12.0 Monocyte percentageOrdered B y: Mario Mak on 01-07-2025 Monocytes/100 WBC (Bld) 9.9 % 0-10 [facility] Neutrophil percentageOrdered By: Mario Mak on 01-07-2025 Neutrophils/100 WBC (Bld) 73.2 % High 47-70 Nucleated red blood cell per centageOrdered By: Mario Mak on 01-07-2025 Nucleated RBC/100 WBC (Bld) [Ratio] 0 % 0-5 Platelet countOrdered By: Moreno on 01-07-2025 Platelets (Bld) [#/Vol] 319 10*3/uL 150-450 Potassium measurementOrdered By: Mario Mak on 01-07-2025 Potassium [Moles/Vol] 4.1 mmol/L 3.5-5.1 [facility] RBC Auto (Bld) [#/Vol]Ordere d By: Mario Mak on 01-07-2025 RBC (Bld) [#/Vol] 3.10 10*6/uL Low 4.2-5.4 [facility] Serum anion gap measurementO rdered By: Mario Mak on 01-07-2025 Anion gap [Moles/Vol] 7 mmol/L 5-15 [facility] Serum globulin measurementOr dered By: Mario Mak on 01-07-2025 Globulin (S) [Mass/Vol] 3.4 g/dL 2.2-4.2 [facility] Serum or plasma alanine melara otransferase (ALT) measurementOrdered By: Mario Mak on 01-07-2025 ALT [Catalytic activity/Vol] U/L Low 13-56 Serum or plasma albumin roma urement (mass/volume)Ordered By: Mario Mak on 01-07-2025 Albumin [Mass/Vol] 2.1 g/dL Low 3.2-5.0 [facility] Serum or plasma alkaline krystal sphatase measurementOrdered By: Mario Mak on 01-07-2025 ALP [Catalytic activity/Vol] 95 U/L 45-117 Serum or plasma calcium roma urement (mass/volume)Ordered By: Mario Mak on 01-07-2025 Calcium [Mass/Vol] 8.6 mg/dL 8.5-10.1 [facility] Serum or plasma creatinine m easurement (mass/volume)Ordered By: Mario Mak on 01-07-2025 Creatinine [Mass/Vol] 0.76 mg/dL 0.55-1.02 [facility] Comment on above: The validity of the calculated GFR & GFRAA in patients over 70 years has not been determined. Clinical correlation is essential. Serum or plasma urea nitroge n measurement (mass/volume)Ordered By: Mario Mak on 01-07-2025 Urea nitrogen [Mass/Vol] 28 mg/dL High 7-18 Sodium levelOrdered By: Mario Mak on 01-07-2025 Sodium [Moles/Vol] 139 mmol/L 136-145 [facility] Total proteinOrdered By: Shwetha Mak on 01-07-2025 Protein [Mass/Vol] 5.5 g/dL Low 6.4-8.2 [facility] White blood cell (WBC) count Ordered By: Mario Mak on 01-07-2025 WBC (Bld) [#/Vol] 7.8 10*3/uL 4.4-11.0 [facility] Pyridoxine [Mass/Vol]on 12-16 Interpretation and review of laboratory results Abnormal [facility] VITAMIN B6/PYRIDOXINon 01-06 Pyridoxine [Mass/Vol] 13.8 nmol/L Low 20.0 - 125.0 nmol/L [facility] Comment on above: INTERPRETIVE INFORMA TION: Vitamin B6 (Pyridoxal 5-Phosphate) Pyridoxal 5'-phosphate measured in a specimen collected following an 8-hour or overnight fast accurately indicates vitamin B6 nutritional status. Non-fasting specimen concentration reflects recent vitamin intake. This test was developed and its performance characteristics determined by [facility]. It has not been cleared or approved by the [place] Food and Drug Administration. This test was performed in a CLIA certified laboratory and is intended for clinical purposes. Performed By: [facility] [address] [place] [address] Pipe Smoker Machine Operator: Marcellus Raza MD, PhD [facility] Number: [id number] OVon 01-04-2025 [facility] Office Visit (MARJORIE ) YUSUF MEDINA ([id number]) 1935 F [place][birth year][place]O Date Time Provider Department [...] with dramatic improvement Currently she is in [place] and here with [facility] and nurse aid who gives the history Currently she is pain free Also spoke with her nurse at [place] who states patient does nto complain of pain, pretty sedentary. No specific complaints at [place] per nurse Currently doing well, no pain at present Family states after debridement of rt ankle- patient feels weak and does not want to walk around Was living alone until 2 months ago and now at [place]. Prior to debridement , patient was not [...] LENS Bilateral 2020 [facility] predniSONE (DELTASONE) 5 mg tablet Take 5 [...] by mouth (more content not included)... Normal [facility] CNPNon 01-03-2025 [facility] Telephone (4CQ) YUSUF MEDINA ([id number]) 1935 F [place] Date Time Provider Department 01/03/25 MIGDALIA CRAMER 4CQ During your visit today, we recorded the following information about you: Alicia Coffey 01/03/2025 12:30 PM Addendum Received call from [facility]. The membership sales representative has appointment with patient's sons this afternoon at 2 pm and is requesting Advanced Directive/POA paperwork that was scanned in on 12/31. Advised to send records request, but she is concerned about not having this paperwork by 2 pm meeting. Electro Mechanical Technician can be reached at [phone]. Fax number given for records request as well. Jame Tam MA 01/03/2025 4:16 PM Signed Records release was not signed. Please review and advice. Willie Kaur APRN.DRAKE 01/04/2025 9:45 AM Signed Please advise [facility] that if patient signs record release, they can get any records they need from [facility] medical records. Or family can sign record request at alf and alf can fax Family Medicine the records request and I can send what I can. Our fax is [phone]. Willie Kaur APRN.Keke Page, RN 01/04/2025 12:12 PM Signed Spoke with a clinical secretary at [facility], he took the info again to get us a signed records release faxed to the office. Please watch for fax Willie Kaur APRN.DRAKE 01/04/2025 4:20 PM Signed The initial note indicates that a membership sales representative is calling and gave return phone number [phone]. I called this number and phone rang and rang numerous times. No voice mail. I can print of POA, stamp and fax since this is a facility to facility request. Given to nursing. If the membership sales representative needs anything else and calls [...] this patient by: CAREGIVER José Miguel Swanson [facility] Problem List As Of Date 01/03/2025 Noted Resolved Osteoarth NOS-other site [M19.90] 09/15/2011 BENIGN HYPERTENSION [I10] 12/01/2016 Diabetes mellitus (HCC) [E11.9] 04/10/2003 Esophageal reflux [K21.9] 06/15/2006 Lumbago [M54.50] 05/31/2007 09/15/2011 Urgency of urination [R39.15] (more content not included)... Normal [facility] COPPER BLOODon 01-03-2025 Copper [Mass/Vol] 128 ug/dL 80 - 155 ug/dL [facility] Comment on above: This test was corina jiang, and its performance characteristics determined by the [facility] Department of Pathology and Laboratory Medicine. It has not been cleared or approved by the FDA. The [facility] Department of Pathology and Laboratory Medicine is regulated under CLIA as qualified to perform high-complexity testing. This test is used for clinical purposes. It should not be regarded as investigational or for research. Interpretation and review of laboratory results Normal [facility] FERRITINon 01-03-2025 Ferritin [Mass/Vol] 865 ng/mL High 14.7 - 2 05.1 ng/mL [facility] FOLATE, SERUMon 01-03-2025 Folate [Mass/Vol] 14.8 ng/mL 4.7 - PINF ng/mL [facility] Ferritin [Mass/Vol]on 2024 Interpretation and review of laboratory results Abnormal [facility] Iron and Iron binding capaci ty panelon 01-03-2025 Interpretation and review of laboratory results Normal [facility] Iron [Mass/Vol] 46 ug/dL 41 - 186 ug/dL [facility] Iron binding capacity [Mass/Vol] 245 ug/dL 232 - 386 ug/dL [facility] Iron/TIBC [Molar ratio] 18.8 % 15.0 - 57.0 % [facility] No Panel InformationOrdered By: Ok Mederos on 01-03-2025 [facility] No Panel Informationon 01-03 Interpretation and review of laboratory results Normal [facility] VITAMIN B12on 01-03-2025 Cobalamin (Vitamin B12) [Mass/Vol] 582 pg/mL 232 - 1245 pg/mL [facility] ZINC BLDOrdered By: Ok da silva on 01-03-2025 Zinc [Mass/Vol] 56 ug/dL Low 60 - 120 ug/dL [facility] Comment on above: This test was deviselao ped, and its performance characteristics determined by the [facility] Department of Pathology and Laboratory Medicine. It has not been cleared or approved by the FDA. The [facility] Department of Pathology and Laboratory Medicine is regulated under CLIA as qualified to perform high-complexity testing. This test is used for clinical purposes. It should not be regarded as investigational or for research. Zinc [Mass/Vol]Ordered By: Ricardo Mederos on 01-03-2025 Interpretation and review of laboratory results Abnormal [facility] CBC W Auto Differential pane l (Bld)on 01-02-2025 Basophils (Bld) [#/Vol] 0.03 10*3/uL [facility] Basophils/100 WBC (Bld) 0.3 % C [facility] Differential cell count method Nom (Bld) Auto [facility] Eosinophils (Bld) [#/Vol] 0.3 10*3/uL [facility] Eosinophils/100 WBC (Bld) 2.9 % [facility] Erythrocyte distribution width (RBC) [Ratio] 17.2 % High 11.5 - 15.0 % [facility] Hematocrit (Bld) [Volume fraction] 34.1 % Low 36.0 - 46.0 % [facility] Hemoglobin (Bld) [Mass/Vol] 10.5 g/dL Low 11.5 - 15.5 g/dL [facility] Immature granulocytes (Bld) [#/Vol] 0.1 10*3/uL [facility] Immature granulocytes/100 WBC (Bld) 1 % [facility] Interpretation and review of laboratory results Abnormal [facility] Lymphocytes (Bld) [#/Vol] 0.78 10*3/uL Low [facility] Lymphocytes/100 WBC (Bld) 7.5 % [facility] MCH (RBC) [Entitic mass] 28.5 pg 26.0 - 34.0 pg [facility] MCHC (RBC) [Mass/Vol] 30.8 g/dL 30.5 - 36.0 g/dL [facility] MCV (RBC) [Entitic vol] 92.4 fL 80.0 - 100.0 fL [facility] Monocytes (Bld) [#/Vol] 0.61 10*3/uL [facility] Monocytes/100 WBC (Bld) 5.9 % C [facility] Neutrophils (Bld) [#/Vol] 8.56 10*3/uL High [facility] Neutrophils/100 WBC (Bld) 82.4 % [facility] Nucleated RBC (Bld) [#/Vol] [facility] Nucleated RBC/100 WBC (Bld) [Ratio] 0 % /100 WBC [facility] Platelet mean volume (Bld) [Entitic vol] 8.7 fL Low 9.0 - 12.7 fL [facility] Platelets (Bld) [#/Vol] 362 10*3/uL [facility] RBC (Bld) [#/Vol] 3.69 10*6/uL Low 3.90 - 5.2 0 m/uL [facility] WBC (Bld) [#/Vol] 10.38 10*3/uL [facility] Basophils (Bld) [#/Vol] 0.03 10*3/uL Normal <0.11 [facility] Comment on above: Order Comment: Speci men Type: BLOOD SPECIMENOrdering Facility: [facility] Address: [address] [place] [address] Performed By: #### 5 7021-8 ####[facility] LABCLIA [id number] [address] [place] Basophils/100 WBC (Bld) 0.3 % Normal [facility] Comment on above: Order Comment: Speci men Type: BLOOD SPECIMENOrdering Facility: [facility] Address: [address] [place] [address] Performed By: #### 5 7021-8 ####[facility] LABCLIA [id number] [address] Differential cell count method Nom (Bld) Auto Normal [facility] Comment on above: Order Comment: Speci men Type: BLOOD SPECIMENOrdering Facility: [facility] Address: [address] [place] [address] Performed By: #### 5 7021-8 ####[facility] LABCLIA [id number] [address] [place] Eosinophils (Bld) [#/Vol] 0.30 10*3/uL Normal <0.46 [facility] Comment on above: Order Comment: Speci men Type: BLOOD SPECIMENOrdering Facility: [facility] Address: [address] [place] [address] Performed By: #### 5 7021-8 ####[facility]EN [facility] LABCLIA [id number] [address] [place] [facility] Eosinophils/100 WBC (Bld) 2.9 % Normal [facility] Comment on above: Order Comment: Speci men Type: BLOOD SPECIMENOrdering Facility: [facility] Address: [address] [place] [address] Performed By: #### 5 7021-8 ####[facility] LABCLIA [id number] [address] [place] Erythrocyte distribution width (RBC) [Ratio] 17.2 % High 11.5-15.0 [facility] Comment on above: Order Comment: Speci men Type: BLOOD SPECIMENOrdering Facility: [facility] Address: [address] [place] [address] Performed By: #### 5 7021-8 ####[facility] LABCLIA [id number] [place] [address] [place] Hematocrit (Bld) [Volume fraction] 34.1 % Low 36.0-46.0 [facility] Comment on above: Order Comment: Speci men Type: BLOOD SPECIMENOrdering Facility: [facility] Address: [address] [place] [address] Performed By: #### 5 7021-8 ####[facility] LABCLIA [id number] [place] [address] [place] Hemoglobin (Bld) [Mass/Vol] 10.5 g/dL Low 11.5-15.5 [facility] Comment on above: Order Comment: Speci men Type: BLOOD SPECIMENOrdering Facility: [facility] Address: [address] [place] [address] Performed By: #### 5 7021-8 ####[facility] LABCLIA [id number] [place] [address] [place] Immature granulocytes (Bld) [#/Vol] 0.10 10*3/uL High <0.10 [facility] Comment on above: Order Comment: Speci men Type: BLOOD SPECIMENOrdering Facility: [facility] Address: [address] [place] [address] Performed By: #### 5 7021-8 ####[facility]EDADEN [facility] LABCLIA [id number] [place] [address] [place] Immature granulocytes/100 WBC (Bld) 1.0 % Normal [facility] Comment on above: Order Comment: Speci men Type: BLOOD SPECIMENOrdering Facility: [facility] Address: [address] [place] [address] Performed By: #### 5 7021-8 ####STRONGADEN [facility] LABCLIA [id number] [place] [address] [place] Lymphocytes (Bld) [#/Vol] 0.78 10*3/uL Low 1.00-4.00 [facility] Comment on above: Order Comment: Speci men Type: BLOOD SPECIMENOrdering Facility: [facility] Address: [address] [place] [address] Performed By: #### 5 7021-8 ####[facility] LABCLIA [id number] [address] Lymphocytes/100 WBC (Bld) 7.5 % Normal [facility] Comment on above: Order Comment: Speci men Type: BLOOD SPECIMENOrdering Facility: [facility] Address: [address] [place] [address] Performed By: #### 5 7021-8 ####[facility] LABIA [id number] [address] MCH (RBC) [Entitic mass] 28.5 pg Normal 26.0-34.0 [facility] Comment on above: Order Comment: Speci men Type: BLOOD SPECIMENOrdering Facility: [facility] Address: [address] [place] [address] Performed By: #### 5 7021-8 ####[facility] LABIA [id number] [place] [address] [place] MCHC (RBC) [Mass/Vol] 30.8 g/dL Normal 30.5-36.0 [facility] Comment on above: Order Comment: Speci men Type: BLOOD SPECIMENOrdering Facility: [facility] Address: [address] [place] [address] Performed By: #### 5 7021-8 ####[facility]SHIEN [facility] LABCLIA [id number] [place] [id number] [place] MCV (RBC) [Entitic vol] 92.4 fL Normal 80.0-100.0 [facility] Comment on above: Order Comment: Speci men Type: BLOOD SPECIMENOrdering Facility: [facility] Address: [address] [place] [address] Performed By: #### 5 7021-8 ####[facility] LABCLIA [id number] [place] [address] [place] Monocytes (Bld) [#/Vol] 0.61 10*3/uL Normal <0.87 [facility] Comment on above: Order Comment: Speci men Type: BLOOD SPECIMENOrdering Facility: [facility] Address: [address] [place] [address] Performed By: #### 5 7021-8 ####[facility] LABCLIA [id number] [place] [address] [place] Monocytes/100 WBC (Bld) 5.9 % Normal [facility] Comment on above: Order Comment: Speci men Type: BLOOD SPECIMENOrdering Facility: [facility] Address: [address] [place] [address] Performed By: #### 5 7021-8 ####[facility] LABCLIA [id number] [place] [address] [place] Neutrophils (Bld) [#/Vol] 8.56 10*3/uL High 1.45-7.50 [facility] Comment on above: Order Comment: Speci men Type: BLOOD SPECIMENOrdering Facility: [facility] Address: [address] [place] [address] Performed By: #### 5 7021-8 ####[facility] LABCLIA [id number] [place] [address] [place] Neutrophils/100 WBC (Bld) 82.4 % Normal [facility] Comment on above: Order Comment: Speci men Type: BLOOD SPECIMENOrdering Facility: [facility] Address: [address] [place] [address] Performed By: #### 5 7021-8 ####[facility] LABCLIA [id number] [place] [address] [place] Nucleated RBC (Bld) [#/Vol] 10*3/uL Normal <0.01 [facility] Comment on above: Order Comment: Speci men Type: BLOOD SPECIMENOrdering Facility: [facility] Address: [address] [place] [address] Performed By: #### 5 7021-8 ####[facility] LABCLIA [id number] [place] [address] [place] Nucleated RBC/100 WBC (Bld) [Ratio] 0.0 /100 WBC Normal [facility] Comment on above: Order Comment: Speci men Type: BLOOD SPECIMENOrdering Facility: [facility] Address: [address] [place] [address] Performed By: #### 5 7021-8 ####[facility] LABIA [id number] [place] [address] [place] Platelet mean volume (Bld) [Entitic vol] 8.7 fL Low 9.0-12.7 [facility] Comment on above: Order Comment: Speci men Type: BLOOD SPECIMENOrdering Facility: [facility] Address: [address] [place] [address] Performed By: #### 5 7021-8 ####[facility] LABCLIA [id number] [place] [address] [place] Platelets (Bld) [#/Vol] 362 10*3/uL Normal 150-400 [facility] Comment on above: Order Comment: Speci men Type: BLOOD SPECIMENOrdering Facility: [facility] Address: [address] [place] [address] Performed By: #### 5 7021-8 ####[facility] LABCLIA [id number] [place] [address] [place] RBC (Bld) [#/Vol] 3.69 10*6/uL Low 3.90-5.20 [facility] Comment on above: Order Comment: Speci men Type: BLOOD SPECIMENOrdering Facility: [facility] Address: [address] [place] [address] Performed By: #### 5 7021-8 ####[facility] LABCLIA [id number] [place] [id number] [place] WBC (Bld) [#/Vol] 10.38 10*3/uL Normal 3.70-11.00 [facility] Comment on above: Order Comment: Speci men Type: BLOOD SPECIMENOrdering Facility: [facility] Address: [address] [place] [address] Performed By: #### 5 7021-8 ####[facility] LABCLIA [id number] [place] [id number] [facility] CNOVSPon 01-02-2025 CNOVSP Visit (SP) Office (HEMAST) YUSUF MEDINA ([id number]) 1935 F [place] Date Time Provider Department [...] LENS [facility]ilateral [facility] FAMILY HISTORY Problem Relation Age [...] daily. amLODI (more content not included)... Normal [facility] CNPKelsie 01-02-2025 CNPN Telephone (HEMAST) YUSFU MEDINA ([id number]) 1935 F [place] Date Time Provider Department 01/02/25 ADITI LOPEZ During your visit today, we recorded the following information about you: Aditi Lopez LISW 01/02/2025 4:03 PM Signed SOCIAL WORK Date of Service: Thursday January 02, 2025 [facility] Professor (SW) Aditi Lopez attempted to contact Yusuf Medina by phone using interpreter deaf services to complete the distress assessment. Yusuf [...] Yusuf will most likely not understand the [place] interpreter deaf because she speaks a different dialect. At [...] this patient by: CAREGIVER José Miguel Swanson [facility] Problem List As Of Date 01/02/2025 Noted [...] Osteoarth NOS-p (more content not included)... Normal [facility] CONFIRM BLOOD TYPEon 025 ABO group Nom (Bld) O [facility] Rh Nom (Bld) Positive [facility] ABO O Normal [facility] Comment on above: Order Comment: Speci men Type: BLOOD SPECIMENOrdering Facility: [facility] Address: [address] [place] [address] Performed By: #### C ONABO ####CC MAIN BLOOD BANKCLIA [id number] [facility] [id number] [address] [place] Rh Nom (Bld) Positive Normal [facility] Comment on above: Order Comment: Speci men Type: BLOOD SPECIMENOrdering Facility: [facility] Address: [address] [place] [address] Performed By: #### C ONABO ####CC [facility] BLOOD BANKCLIA [id number] [address] [place] COPPER BLOODon 01-02-2025 Copper [Mass/Vol] 128 ug/dL Normal 80-155 [facility] Comment on above: Order Comment: Speci men Type: BLOOD SPECIMENOrdering Facility: [facility] Address: [address] [place] [address] Result Comment: This test was developed, and its performance characteristics determined by the [facility] Department of Pathology and Laboratory Medicine. It has not been cleared or approved by the FDA. The [facility] Department of Pathology and Laboratory Medicine is regulated under CLIA as qualified to perform high-complexity testing. This test is used for clinical purposes. It should not be regarded as investigational or for research. Performed By: #### 5 763-8, COPPER ####[facility] [id number] [address] [place] Comprehensive metabolic 2000 panelOrdered By: Aminta Lim on 01-02-2025 Albumin [Mass/Vol] 3.5 g/dL Low 3.9 - 4.9 g/dL [facility] ALP [Catalytic activity/Vol] 128 U/L High 34 - 123 U/L [facility] ALT [Catalytic activity/Vol] U/L Low 7 - 38 U/L [facility] Anion gap [Moles/Vol] 13 mmol/L 8 - 15 mmol/L [facility] AST [Catalytic activity/Vol] 15 U/L 13 - 35 U/L [facility] Bilirubin [Mass/Vol] 0.2 mg/dL 0.2 - 1 .3 mg/dL [facility] Calcium [Mass/Vol] 9.1 mg/dL 8.5 - 10. 2 mg/dL [facility] Chloride [Moles/Vol] 98 mmol/L 98 - 10 7 mmol/L [facility] CO2 [Moles/Vol] 26 mmol/L 22 - 30 mmol/L [facility] Creatinine [Mass/Vol] 0.82 mg/dL 0.58 - 0.96 mg/dL [facility] GFR/1.73 sq M.predicted among non-blacks MDRD (S/P/Bld) [Vol rate/Area] 68 mL/min/{1.73_m2} - PINF [facility] Comment on above: Estimated Glomerular Filtration Rate [...] 276 mg/dL High 74 - 99 mg/dL [facility] Comment on above: The [place] Diabete s Association (ADA) provides guidance for [...] Standards of Medical Care in Diabetes 2016, [place] Diabetes Association. Diabetes Care. 2016.39(Suppl 1). Interpretation and review of laboratory results Abnormal [facility] Potassium [Moles/Vol] 5.1 mmol/L 3.7 - 5.1 mmol/L [facility] Protein [Mass/Vol] 5.9 g/dL Low 6.3 - 8.0 g/dL [facility] Sodium [Moles/Vol] 137 mmol/L 136 - 144 mmol/L [facility] Urea nitrogen [Mass/Vol] 29 mg/dL High 7 - 21 mg/dL [facility] Comprehensive metabolic 2000 panelon 01-02-2025 Albumin [Mass/Vol] 3.5 g/dL Low 3.9-4.9 [facility] Comment on above: Order Comment: Speci men Type: BLOOD SPECIMEN [facility] Address: [address] [place] [address] Performed By: #### 5 7021-8 #### CHAZRIAZ [facility] CLIA [id number] [address] [place] [address] [place] ALP [Catalytic activity/Vol] 128 U/L High 34-123 [facility] Comment on above: Order Comment: Speci men Type: BLOOD SPECIMEN Ordering [facility]: [facility] Address: [address] [place] [address] Performed By: #### 5 7021-8 #### CHAZMINDY [facility] CLIA [id number] [address] [place] [address] [place] ALT [Catalytic activity/Vol] U/L Low 7-38 [facility] Comment on above: Order Comment: Speci men Type: BLOOD SPECIMEN Ordering [facility]: [facility] Address: [address] [place] [address] Performed By: #### 5 7021-8 #### CH[facility]MINDY [facility] CLIA [id number] [address] [place] [address] [place] Anion gap [Moles/Vol] 13 mmol/L Normal 8-15 [facility] Comment on above: Order Comment: Speci men Type: BLOOD SPECIMEN Ordering [facility] Address: [address] [place] [address] Performed By: #### 5 7021-8 #### [facility] CLIA [id number] [address] [place] [address] [place] AST [Catalytic activity/Vol] 15 U/L Normal 13-35 [facility] Comment on above: Order Comment: Speci men Type: BLOOD SPECIMEN Ordering [facility] Address: [address] [place] [address] Performed By: #### 5 7021-8 #### [facility] CLIA [id number] [address] [place] [address] [place] Bilirubin [Mass/Vol] 0.2 mg/dL Normal 0.2-1.3 [facility] Comment on above: Order Comment: Speci men Type: BLOOD SPECIMEN Ordering [facility] Address: [address] [place] [address] Performed By: #### 5 7021-8 #### JENNIFER [facility] CLIA [id number] [address] [place] [address] [place] Calcium [Mass/Vol] 9.1 mg/dL Normal 8.5-10.2 [facility] Comment on above: Order Comment: Speci men Type: BLOOD SPECIMEN Ordering [facility]: [facility] Address: [address] [place] [address] Performed By: #### 5 7021-8 #### JENNIFER [facility] CLIA [id number] [address] [place] [address] [place] Chloride [Moles/Vol] 98 mmol/L Normal 98-107 [facility] Comment on above: Order Comment: Speci men Type: BLOOD SPECIMEN [facility]ing [facility] Address: [address] [place] [address] Performed By: #### 5 7021-8 #### JENNIFER [facility] CLIA [id number] [address] [place] [address] [place] CO2 [Moles/Vol] 26 mmol/L Normal 22-30 [facility] Comment on above: Order Comment: Speci men Type: BLOOD SPECIMEN Ordering [facility]: [facility] Address: [address] [place] [address] Performed By: #### 5 7021-8 #### JENN[facility]ER [facility] CLIA [id number] [address] [place] [address] [place] Creatinine [Mass/Vol] 0.82 mg/dL Normal 0.58-0.96 [facility] Comment on above: Order Comment: Speci men Type: BLOOD SPECIMEN Ordering [facility]: [facility] Address: [address] [place] [address] Performed By: #### 5 7021-8 #### JENNIFER [facility] CLIA [id number] [address] [place] [address] [place] Creatinine and Glomerular filtration rate.predicted panel (S/P/Bld) 68 mL/min/1.73m??? Normal >=60 [facility] Comment on above: Order Comment: Fan meade Type: BLOOD SPECIMEN Ordering [facility]: [facility] Address: [address] [place] [address] Result Comment: Hilda mated Glomerular Filtration Rate [...] GFR. Performed By: #### 5 7021-8 #### [facility] CLIA [id number] [address] [place] [address] [place] Glucose [Mass/Vol] 276 mg/dL High 74-99 [facility] Comment on above: Order Comment: Fan meade Type: BLOOD SPECIMEN Ordering [facility] Address: [address] [place] [address] Result Comment: The [place] Diabetes Association (ADA) provides guidance for cutoff [...] Standards of Medical Care in Diabetes 2016, [place] Diabetes Association. Diabetes Care. 2016.39(Suppl 1). Performed By: #### 5 7021-8 #### [facility] CLIA [id number] [address] [place] [address] [place] Potassium [Moles/Vol] 5.1 mmol/L Normal 3.7-5.1 [facility] Comment on above: Order Comment: Speci men Type: BLOOD SPECIMEN Ordering Facility: [facility] Address: [address] [place] [address] Performed By: #### 5 7021-8 #### CH[facility]LYRICMINDY [facility] CLIA [id number] [address] [place] [address] [place] Protein [Mass/Vol] 5.9 g/dL Low 6.3-8.0 [facility] Comment on above: Order Comment: Speci men Type: BLOOD SPECIMEN Ordering [facility]: [facility] Address: [address] [place] [address] Performed By: #### 5 7021-8 #### [facility]ENN[facility]ER [facility] CLIA [id number] [address] [place] [address] [place] Sodium [Moles/Vol] 137 mmol/L Normal 136-144 [facility] Comment on above: Order Comment: Speci men Type: BLOOD SPECIMEN Ordering [facility]: [facility] Address: [address] [place] [address] Performed By: #### 5 7021-8 #### [facility] CLIA [id number] [address] [place] [address] [place] Urea nitrogen [Mass/Vol] 29 mg/dL High 7-21 [facility] Comment on above: Order Comment: Speci men Type: BLOOD SPECIMEN Ordering [facility]: [facility] Address: [address] [place] [address] Performed By: #### 5 7021-8 #### [facility] CLIA [id number] [address] [place] [address] [place] ESR Westergren method (Bld) [Velocity]on 01-02-2025 ESR (Bld) [Velocity] 47 mm/h High [facility] Interpretation and review of laboratory results Abnormal [facility] ESR (Bld) [Velocity] 47 mm/h High 0-20 [facility] Comment on above: Order Comment: Speci men Type: BLOOD SPECIMEN Ordering Facility: [facility] Address: [address] [place] [address] Performed By: #### 2 132-9, 6-4, 13273-4, 228-8 #### [facility] CLIA [id number] [address] [place] [address] [place] Fer[facility] Ferritin [Mass/Vol] 865.0 ng/mL High 14.7-205.1 [facility] Comment on above: Order Comment: Speci men Type: BLOOD SPECIMEN Ordering Facility: [facility] Address: [address] [place] [address] Performed By: #### 2 132-9, 6-4, 30948-1, 2283-8 #### [facility] CLIA [id number] [address] [place] [address] [place] Folate SerPl-ncon 01-02-20 Folate [Mass/Vol] 14.8 ng/mL Normal >4.7 [facility] Comment on above: Order Comment: Speci men Type: BLOOD SPECIMEN Ordering [facility]: [facility] Address: [address] [place] [address] Performed By: #### 2 132-9, 6-4, 33304-3, 2283-8 #### [facility] CLIA [id number] [address] [place] [address] [place] Iron and Iron binding capaci ty panelon 01-02-2025 Iron [Mass/Vol] 46 ug/dL Normal 41-186 [facility] Comment on above: Order Comment: Speci men Type: BLOOD SPECIMEN Ordering [facility]: [facility] Address: [address] [place] [address] Performed By: #### 2 132-9, 6-4, 12379-7, 228-8 #### [facility] CLIA [id number] [address] [place] [address] [place] Iron binding capacity [Mass/Vol] 245 ug/dL Normal 232-386 [facility] Comment on above: Order Comment: Speci men Type: BLOOD SPECIMEN Ordering [facility]: [facility] Address: [address] [place] [address] Performed By: #### 2 132-9, 2276-4, 45805-5, 2284-8 #### [facility] CLIA [id number] [address] [place] [address] [place] Iron/TIBC [Molar ratio] 18.8 % Normal 15.0-57.0 [facility] Comment on above: Order Comment: Speci men Type: BLOOD SPECIMEN Ordering [facility]: [facility] Address: [address] [place] [address] Performed By: #### 2 132-9, 2276-4, 31599-2, 2284-8 #### [facility] CLIA [id number] [address] [place] [address] [place] TYPE + SCREENon 01-02-2025 ABO group Nom (Bld) O [facility] Blood group antibody screen Ql Negative [facility] Rh Nom (Bld) Positive [facility] Type and Screen Expiration 01/05/2025 23:59 [facility] ABO O Normal [facility] Comment on above: Order Comment: Speci men Type: BLOOD SPECIMEN Ordering [facility]: [facility] Address: [address] [place] [address] Performed By: #### B CRPB1 #### CLARITY ILLUMINA [facility] CLIA [id number] [address] [place] [address] [place] #### ISMRNCNPB #### [facility] CLIA [id number] [address] [place] [address] [place] Rh Nom (Bld) Positive Normal [facility] Comment on above: Order Comment: Speci men Type: BLOOD SPECIMEN Ordering [facility]: [facility] Address: [address] [place] [address] Performed By: #### B CRPB1 #### CL[facility] ILLUM[facility] CLIA [id number] [address] [place] [address] [place] #### ISMRNCNPB #### [facility] CLIA [id number] [address] [place] [address] [place] TYPE AND SCREEN EXPIRATION 01/05/2025 23:59 Normal [facility] Comment on above: Order Comment: Speci men Type: BLOOD SPECIMEN Ordering [facility]: [facility] Address: [address] [place] [address] Performed By: #### B CRPB1 #### CLARITY ILLUMINA [facility] CLIA [id number] [address] [place] [address] [place] #### ISMRNCNPB #### [facility] CLIA [id number] [address] [place] [address] [place] VITAMIN B6/PYRIDOXINon 01-02 VITAMIN B6 13.8 nmol/L Low 20.0-125.0 [facility] Comment on above: Order Comment: Speci men Type: BLOOD SPECIMEN Ordering [facility]: [facility] Address: [address] [place] [address] Result Comment: INTE RPRETIVE INFORMATION: Vitamin B6 (Pyridoxal 5-Phosphate) Pyridoxal 5'-phosphate measured in a specimen collected following an 8-hour or overnight fast accurately indicates vitamin B6 nutritional status. Non-fasting specimen concentration reflects recent vitamin intake. This test was developed and its performance characteristics determined by [facility]. It has not been cleared or approved by the [place] Food and Drug Administration. This test was performed in a CLIA certified laboratory and is intended for clinical purposes. Performed By: [facility] [address] [place] [address] [employer] Machine Operator: Marcellus Raza MD, PhD CLIA Number: [id number] Performed By: #### 5 7021-8 #### JENNIFER [facility] CLIA [id number] [facility] [place] [address] [place] Vit B12 SerPl-mCncon 025 Cobalamin (Vitamin B12) [Mass/Vol] 582 pg/mL Normal 232-1245 [facility] Comment on above: Order Comment: Fan meade Type: BLOOD SPECIMEN Ordering [facility]: [facility] Address: [address] [place] [address] Performed By: #### 2 132-9, 2276-4, 44704-8, 2284-8 #### [facility] CLIA [id number] [address] [place] [address] [place] Zinc SerPl-mCncon 01-02-2025 Zinc [Mass/Vol] 56 ug/dL Low 60-120 [facility] Comment on above: Order Comment: Fan meade Type: BLOOD SPECIMENOrdering Facility: [facility] Address: [address] [place] [address] Result Comment: This test was developed, and its performance characteristics determined by the [facility] Department of Pathology and Laboratory Medicine. It has not been cleared or approved by the FDA. The [facility] Department of Pathology and Laboratory Medicine is regulated under CLIA as qualified to perform high-complexity testing. This test is used for clinical purposes. It should not be regarded as investigational or for research. Performed By: #### 5 763-8, COPPER ####[facility] [id number] [place] [address] [place] Absolute lymphocyte countOrd ered By: Mario Mak on 2024 Lymphocytes Auto (Unsp spec) [#/Vol] 0.88 10*3/uL 0.83-4.51 Absolute neutrophil countOrd ered By: Mario Mak on 2024 Neutrophils (Bld) [#/Vol] 5.4 10*3/uL 2.0-7.7 Albumin to globulin ratioOrd ered By: Mario Mak on 2024 Albumin/Globulin [Mass ratio] 0.7 {ratio} Low 0.9-2.4 Automated lymphocyte count a s percentage of total leukocytesOrdered By: Mario Mak on 2024 Lymphocytes/100 WBC Auto (Unsp spec) 11.9 % Low 19-41 Basophil percentageOrdered B y: Mario Mak on 2024 Basophils/100 WBC (Bld) 0.3 % 0-1 [facility] Bilirubin, totalOrdered By: Mario Mak on 2024 Bilirubin [Mass/Vol] 0.30 mg/dL 0.20-1.00 [facility] Comment on above: For patients on eltr ombopag therapy, use of Dimension [place] TBIL is not recommended. Blood urea nitrogen (BUN)/cr eatinine ratioOrdered By: Mario Mak on 2024 Urea nitrogen/Creatinine [Mass ratio] 30.9 mg/mg High 10-20 CBC W/Diff, Automatedon 12-15 Absolute Lymph 0.88 X10 3/uL Normal 0.83-4.51 Comment on above: Order Comment: 107.1 Performed By: #### L 101.9900, L501.6710 #### Laboratory [address] [place], [address] Absolute Neut 5.4 X10 3/uL Normal 2.0-7.7 Comment on above: Order Comment: 107.1 Performed By: #### L 101.9900, L501.6710 #### Laboratory [address] [place], [address] Basophils/100 WBC (Bld) 0.3 % Normal 0-1 [facility] Comment on above: Order Comment: 107.1 Performed By: #### L 101.9900, L501.6710 #### Laboratory [address] [place], [address] Eosinophils/100 WBC (Bld) 6.3 % High 0-5 Comment on above: Order Comment: 107.1 Performed By: #### L 101.9900, L501.6710 #### Laboratory [address] [place], [address] Erythrocyte distribution width (RBC) [Ratio] 17.1 % High 11.6-14.6 Comment on above: Order Comment: 107.1 Performed By: #### L 101.9900, L501.6710 #### Laboratory [address] [place], [address] Hematocrit (Bld) [Volume fraction] 29.8 % Low 37-47 Comment on above: Order Comment: 107.1 Performed By: #### L 101.9900, L5.6710 #### Laboratory [address] [place], [address] Hemoglobin (Bld) [Mass/Vol] 9.4 g/dL Low 12.0-15.0 Comment on above: Order Comment: 107.1 Performed By: #### L 101.9900, L5.10 #### Laboratory [address] [place], [address] IG% 1.100 High 0.0-0.9 Comment on above: Order Comment: 107.1 Result Comment: IG% - Immature Granulocytes (promyelocytes, myelocytes and metamyelocytes) > 1% indicates that a LEFT SHIFT is Present. Performed By: #### L 101.9900, L5.6710 #### Laboratory [address] [place], [address] Lymphocytes/100 WBC (Bld) 11.9 % Low 19-41 Comment on above: Order Comment: 107.1 Performed By: #### L 101.9900, L5.10 #### Laboratory [address] [place], [address] MCH (RBC) [Entitic mass] 28.4 pg Normal 27.0-32.0 Comment on above: Order Comment: 107.1 Performed By: #### L 101.9900, L501.6710 #### Laboratory [address] [place], [address] MCHC (RBC) [Mass/Vol] 31.5 g/dL Low 32-36 [facility] Comment on above: Order Comment: 107.1 Performed By: #### L 101.9900, L501.6710 #### Laboratory [address] [place], [address] MCV (RBC) [Entitic vol] 90.0 fL Normal 81-99 [facility] Comment on above: Order Comment: 107.1 Performed By: #### L 101.9900, L5.10 #### Laboratory [address] [place], [address] Monocytes/100 WBC (Bld) 7.5 % Normal 0-10 [facility] Comment on above: Order Comment: 107.1 Performed By: #### L 101.9900, L5.10 #### Laboratory [address] [place], [address] Neutrophils/100 WBC (Bld) 72.9 % High 47-70 Comment on above: Order Comment: 107.1 Performed By: #### L 101.9900, L5.10 #### Laboratory [address] [place], [address] Nucleated RBC (Bld) [#/Vol] 0 10*3/uL Normal 0-5 Comment on above: Order Comment: 107.1 Performed By: #### L 101.9900, L501.6710 #### Laboratory [address] [place], [address] Platelet mean volume (Bld) [Entitic vol] 9.2 fL Normal 6.2-12.0 Comment on above: Order Comment: 107.1 Performed By: #### L 101.9900, L5.10 #### Laboratory [address] [place], [address] Platelets (Bld) [#/Vol] 361 10*3/uL Normal 150-450 Comment on above: Order Comment: 107.1 Performed By: #### L 101.9900, L501.6710 #### Laboratory [address] [place], [address] RBC (Bld) [#/Vol] 3.31 10*6/uL Low 4.2-5.4 [facility] Comment on above: Order Comment: 107.1 Performed By: #### L 101.9900, L501.6710 #### Laboratory [address] [place], [address] RDW SD 56.3 fl High 35.1-43.9 Comment on above: Order Comment: 107.1 Performed By: #### L 101.9900, L501.6710 #### Laboratory [address] [place], [address] WBC (Bld) [#/Vol] 7.4 10*3/uL Normal 4.4-11.0 [facility] Comment on above: Order Comment: 107.1 Performed By: #### L 101.9900, L501.6710 #### Laboratory [address] [place], [address] Carbon dioxide measurementOr dered By: Mario Mak on 2024 CO2 [Moles/Vol] 28.0 mmol/L 21.0-32.0 Chloride measurementOrdered By: Mario Mak on 2024 Chloride [Moles/Vol] 102 mmol/L 98-107 [facility] Comprehensive Metabolic Prof ilon 2024 Albumin [Mass/Vol] 2.1 g/dL Low 3.2-5.0 [facility] Comment on above: Order Comment: 107.1 Performed By: #### L 101.9900, L501.6710 #### Laboratory [address] [place], [address] Albumin/Globulin [Mass ratio] 0.7 {ratio} Low 0.9-2.4 Comment on above: Order Comment: 107.1 Performed By: #### L 101.9900, L501.6710 #### Laboratory [address] [place], [address] ALK P 102 U/L Normal 45-117 Comment on above: Order Comment: 107.1 Performed By: #### L 101.9900, L501.6710 #### Laboratory [address] [place], [address] ALT [Catalytic activity/Vol] U/L Low 13-56 Comment on above: Order Comment: 107.1 Performed By: #### L 101.9900, L501.6710 #### Laboratory [address] [place], [address] AST [Catalytic activity/Vol] 15 U/L Normal 15-37 Comment on above: Order Comment: 107.1 Performed By: #### L 101.9900, L501.6710 #### Laboratory [address] [place], [address] Bilirubin [Mass/Vol] 0.30 mg/dL Normal 0.20-1.00 [facility] Comment on above: Order Comment: 107.1 Result Comment: For patients on eltrombopag therapy, use of Dimension [place] TBIL is not recommended. Performed By: #### L 101.9900, L501.6710 #### Laboratory [address] [place], [address] BUN/CRE 30.9 RATIO High 10-20 Comment on above: Order Comment: 107.1 Performed By: #### L 101.9900, L501.6710 #### Laboratory [address] [place], [address] CA,Total 8.7 mg/dL Normal 8.5-10.1 Comment on above: Order Comment: 107.1 Performed By: #### L 101.9900, L501.6710 #### Laboratory [address] [place], [address] Chloride [Moles/Vol] 102 mmol/L Normal 98-107 [facility] Comment on above: Order Comment: 107.1 Performed By: #### L 101.9900, L501.6710 #### Laboratory [address] [place], [address] CO2 [Moles/Vol] 28.0 mmol/L Normal 21.0-32.0 Comment on above: Order Comment: 107.1 Performed By: #### L 101.9900, L501.6710 #### Laboratory [address] [place], [address] Creatinine [Mass/Vol] 0.87 mg/dL Normal 0.55-1.02 [facility] Comment on above: Order Comment: 107.1 Result Comment: The validity of the calculated GFR GFRAA in patients over 70 years has not been determined. Clinical correlation is essential. Performed By: #### L 101.9900, L501.6710 #### Laboratory [address] [place], [address] EST GFR - AA 79 mL/min Normal >60 Comment on above: Order Comment: 107.1 Result Comment: Afri can [place] GFR Calc Performed By: #### L 101.9900, L501.6710 #### Laboratory [address] [place], [address] GAP 7 Normal 5-15 Comment on above: Order Comment: 107.1 Performed By: #### L 101.9900, L501.6710 #### Laboratory [address] [place], [address] GFR/1.73 sq M.predicted among non-blacks MDRD (S/P/Bld) [Vol rate/Area] 65 mL/min/{1.73_m2} Normal >60 Comment on above: Order Comment: 107.1 Result Comment: Non- GFR Calc Performed By: #### L 101.9900, L501.6710 #### Laboratory [address] [place], [address] Globulin (S) [Mass/Vol] 3.1 g/dL Normal 2.2-4.2 [facility] Comment on above: Order Comment: 107.1 Performed By: #### L 101.9900, L5.6710 #### Laboratory [address] [place], [address] Glucose [Mass/Vol] 192 mg/dL High 74-106 [facility] Comment on above: Order Comment: 107.1 Result Comment: Fast ing Glucose result greater than or equal to 126 mg/dL suggests DIABETES MELLITUS per A.D.A. criteria. Performed By: #### L 101.9900, L501.6710 #### Laboratory [address] [place], [address] Potassium [Moles/Vol] 3.9 mmol/L Normal 3.5-5.1 [facility] Comment on above: Order Comment: 107.1 Performed By: #### L 101.9900, L501.6710 #### Laboratory [address] [place], [address] Sodium [Moles/Vol] 137 mmol/L Normal 136-145 [facility] Comment on above: Order Comment: 107.1 Performed By: #### L 101.9900, L501.6710 #### Laboratory [address] [place], [place], [id number] T PROT 5.2 g/dL Low 6.4-8.2 Comment on above: Order Comment: 107.1 Performed By: #### L 101.9900, L501.6710 #### Laboratory [address] [place], [place], [id number] Urea nitrogen [Mass/Vol] 27 mg/dL High 7-18 Comment on above: Order Comment: 107.1 Performed By: #### L 101.9900, L501.6710 #### Laboratory [address] [place], [place], [id number] Eosinophil percentageOrdered By: Mario Mak on 2024 Eosinophils/100 WBC (Bld) 6.3 % High 0-5 Erythrocyte Sed Rateon 12-31 SED RATE 27 mm/hr Normal 0-30 Comment on above: Order Comment: 107-1 Performed By: #### L 400.0001, M100.2200 #### Laboratory [address] [place], [place], [address] Erythrocyte distribution wid th (RBC) [Ratio]Ordered By: Mario Mak on 2024 Erythrocyte distribution width (RBC) [Entitic vol] 56.3 fL High 35.1-43.9 Erythrocyte distribution wid th ratioOrdered By: Mario Mak on 2024 Erythrocyte distribution width (RBC) [Ratio] 17.1 % High 11.6-14.6 Erythrocyte distribution wid th standard deviationOrdered By: Mario Mak on 2024 Erythrocyte distribution width (RBC) [Ratio] 56.3 fl High 35.1-43.9 Erythrocyte sedimentation ra teOrdered By: Mario Mak on 2024 ESR (Bld) [Velocity] 27 mm/h 0-30 [facility] Estimated glomerular filtrat ion rate (GFR) AmericanOrdered By: Mario Mak on 2024 Estimated GFR (MDRD) Amer 79 mL/min >60 Comment on above: GFR Calc Glomerular filtration rate ( GFR) estimationOrdered By: Mario Mak on 2024 Estimated GFR (MDRD) Non-Af Amer 65 mL/min >60 Comment on above: Non- GFR Calc GFR/1.73 sq M.predicted among non-blacks MDRD (S/P/Bld) [Vol rate/Area] 65 mL/min/{1.73_m2} >60 Comment on above: Non- GFR Calc Glucose measurementOrdered B y: Mario Mak on 2024 Glucose [Mass/Vol] 192 mg/dL High 74-106 [facility] Comment on above: Fasting Glucose resu lt greater than or equal to 126 mg/dL suggests DIABETES MELLITUS per A.D.A. criteria. Hematocrit Auto (Bld) [Volum e fraction]Ordered By: Mario Mak on 2024 Hematocrit (Bld) [Volume fraction] 29.8 % Low 37-47 Hemoglobin measurementOrdere d By: Mario Mak on 2024 Hemoglobin (Bld) [Mass/Vol] 9.4 g/dL Low 12.0-15.0 Immature granulocytes/100 WB C Auto (Bld)Ordered By: Mario Mak on 2024 Immature granulocytes/100 WBC (Bld) 1.100 % High 0.0-0.9 Comment on above: IG% - Immature Granu locytes (promyelocytes, myelocytes and metamyelocytes) > 1% indicates that a LEFT SHIFT is Present. Laboratory - Chemistry and C hemistry - challengeOrdered By: Mario Mak on 2024 AST [Catalytic activity/Vol] 15 U/L 15-37 Lymphocytes Auto (Unsp spec) [#/Vol]Ordered By: Mario Mak on 2024 Lymphocytes (Bld) [#/Vol] 0.88 10*3/uL 0.83-4.51 Lymphocytes/100 WBC Auto (Un sp spec)Ordered By: Mario Mak on 2024 Lymphocytes/100 WBC (Bld) 11.9 % Low 19-41 MCV (mean corpuscular volume ) determinationOrdered By: Mario Mak on 2024 MCV (RBC) [Entitic vol] 90.0 fL 81-99 [facility] Mean corpuscular hemoglobin (MCH) determinationOrdered By: Mario Mak on 2024 MCH (RBC) [Entitic mass] 28.4 pg 27.0-32.0 Mean corpuscular hemoglobin concentration (MCHC) determinationOrdered By: Mario Mak on 2024 MCHC (RBC) [Mass/Vol] 31.5 g/dL Low 32-36 [facility] Mean platelet volume determi nationOrdered By: Mario Mak on 2024 Platelet mean volume (Bld) [Entitic vol] 9.2 fL 6.2-12.0 Monocyte percentageOrdered B y: Mario Mak on 2024 Monocytes/100 WBC (Bld) 7.5 % 0-10 [facility] Neutrophil percentageOrdered By: Mario Mak on 2024 Neutrophils/100 WBC (Bld) 72.9 % High 47-70 Nucleated red blood cell per centageOrdered By: Mario Mak on 2024 Nucleated RBC/100 WBC (Bld) [Ratio] 0 % 0-5 Platelet countOrdered By: Moreno on 2024 Platelets (Bld) [#/Vol] 361 10*3/uL 150-450 Potassium measurementOrdered By: Mario Mak on 2024 Potassium [Moles/Vol] 3.9 mmol/L 3.5-5.1 [facility] RBC Auto (Bld) [#/Vol]Ordere d By: Mario Mak on 2024 RBC (Bld) [#/Vol] 3.31 10*6/uL Low 4.2-5.4 [facility] Serum anion gap measurementO rdered By: Mario Mak on 2024 Anion gap [Moles/Vol] 7 mmol/L 5-15 [facility] Serum globulin measurementOr dered By: Mario Mak on 2024 Globulin (S) [Mass/Vol] 3.1 g/dL 2.2-4.2 [facility] Serum or plasma alanine melara otransferase (ALT) measurementOrdered By: Mario Mak on 2024 ALT [Catalytic activity/Vol] U/L Low 13-56 Serum or plasma albumin roma urement (mass/volume)Ordered By: Mario Mak on 2024 Albumin [Mass/Vol] 2.1 g/dL Low 3.2-5.0 [facility] Serum or plasma alkaline krystal sphatase measurementOrdered By: Mario Mak on 2024 ALP [Catalytic activity/Vol] 102 U/L 45-117 Serum or plasma calcium roma urement (mass/volume)Ordered By: Mario Mak on 2024 Calcium [Mass/Vol] 8.7 mg/dL 8.5-10.1 [facility] Serum or plasma creatinine m easurement (mass/volume)Ordered By: Mario Mak on 2024 Creatinine [Mass/Vol] 0.87 mg/dL 0.55-1.02 [facility] Comment on above: The validity of the calculated GFR & GFRAA in patients over 70 years has not been determined. Clinical correlation is essential. Serum or plasma urea nitroge n measurement (mass/volume)Ordered By: Mario Mak on 2024 Urea nitrogen [Mass/Vol] 27 mg/dL High 7-18 Sodium levelOrdered By: Mario Mak on 2024 Sodium [Moles/Vol] 137 mmol/L 136-145 [facility] Total proteinOrdered By: Shwetha Mak on 2024 Protein [Mass/Vol] 5.2 g/dL Low 6.4-8.2 [facility] White blood cell (WBC) count Ordered By: Mario Mak on 2024 WBC (Bld) [#/Vol] 7.4 10*3/uL 4.4-11.0 [facility]24 JACINTA Telephone (INTMIN) YUSUF MEDINA ([id number]) 1935 F [facility] Date Time Provider Department 12/26/24 MIGDALIA CRAMER During your visit today, we recorded the following information about you: Nikia Trinidad 12/26/2024 9:24 AM Signed Patients caregiver demetria tapia calling to have her [employer] message she sent below addressed. Yusuf Robles's sons and are in town to make an assessment whether she is able to go home from rehab. Can you talk with them to help with their decision? Please call Nathaniel Medina at [phone]. They are here till Tuesday 12 noon. Thank you. Willie Kaur APRN.TOWER SWITCH OPERATOR 12/26/2024 1:10 PM Signed I wish I [...] 12/26/2024 2:46 PM Signed Noted Willie Kaur APRN.TOWER SWITCH OPERATOR Allergies As of Date: 12/26/2024 (No Known [...] this patient by: CAREGIVER José Miguel Swanson [facility] Problem List As Of Date 12/26/2024 Noted [...] 02/19/2011 02/12/2014 (more content not included)... Normal [facility] Absolute lymphocyte countOrd ered By: Mario Mak on 12-24-2024 Lymphocytes Auto (Unsp spec) [#/Vol] 0.98 10*3/uL 0.83-4.51 Absolute neutrophil countOrd ered By: Mario Mak on 12-24-2024 Neutrophils (Bld) [#/Vol] 3.8 10*3/uL 2.0-7.7 Albumin to globulin ratioOrd ered By: Mario Mak on 12-24-2024 Albumin/Globulin [Mass ratio] 0.6 {ratio} Low 0.9-2.4 Automated lymphocyte count a s percentage of total leukocytesOrdered By: Mario Mak on 12-24-2024 Lymphocytes/100 WBC Auto (Unsp spec) 17.8 % Low 19-41 Basophil percentageOrdered B y: Mario Mak on 12-24-2024 Basophils/100 WBC (Bld) 0.5 % 0-1 [facility] Bilirubin, totalOrdered By: Mario Mak on 12-24-2024 Bilirubin [Mass/Vol] 0.30 mg/dL 0.20-1.00 [facility] Comment on above: For patients on eltr ombopag therapy, use of Dimension [place] TBIL is not recommended. Blood urea nitrogen (BUN)/cr eatinine ratioOrdered By: Mario Mak on 12-24-2024 Urea nitrogen/Creatinine [Mass ratio] 30.0 mg/mg High 10-20 CBC W/Diff, Automatedon 12-15 Absolute Lymph 0.98 X10 3/uL Normal 0.83-4.51 Comment on above: Order Comment: 107.1 Performed By: #### L 501.6710, L101.9900 #### Laboratory [address] [place], [address] Absolute Neut 3.8 X10 3/uL Normal 2.0-7.7 Comment on above: Order Comment: 107.1 Performed By: #### L 501.6710, L101.9900 #### Laboratory [address] [place], [address] Basophils/100 WBC (Bld) 0.5 % Normal 0-1 [facility] Comment on above: Order Comment: 107.1 Performed By: #### L 501.6710, L101.9900 #### Laboratory [address] [place], [address] Eosinophils/100 WBC (Bld) 5.1 % High 0-5 Comment on above: Order Comment: 107.1 Performed By: #### L 501.6710, L101.9900 #### Laboratory [address] [place], [address] Erythrocyte distribution width (RBC) [Ratio] 16.8 % High 11.6-14.6 Comment on above: Order Comment: 107.1 Performed By: #### L 501.6710, L101.9900 #### Laboratory [address] [place], [address] Hematocrit (Bld) [Volume fraction] 27.5 % Low 37-47 Comment on above: Order Comment: 107.1 Performed By: #### L 501.10, L101.9900 #### Laboratory [address] [place], [address] Hemoglobin (Bld) [Mass/Vol] 8.9 g/dL Low 12.0-15.0 Comment on above: Order Comment: 107.1 Performed By: #### L 501.6710, L101.9900 #### Laboratory [address] [place], [address] IG% 0.900 Normal 0.0-0.9 Comment on above: Order Comment: 107.1 Result Comment: IG% - Immature Granulocytes (promyelocytes, myelocytes and metamyelocytes) > 1% indicates that a LEFT SHIFT is Present. Performed By: #### L 501.6710, L101.9900 #### Laboratory [address] [place], [address] Lymphocytes/100 WBC (Bld) 17.8 % Low 19-41 Comment on above: Order Comment: 107.1 Performed By: #### L 501.6710, L101.9900 #### Laboratory [address] [place], [address] MCH (RBC) [Entitic mass] 29.0 pg Normal 27.0-32.0 Comment on above: Order Comment: 107.1 Performed By: #### L 501.6710, L101.9900 #### Laboratory [address] [place], [address] MCHC (RBC) [Mass/Vol] 32.4 g/dL Normal 32-36 [facility] Comment on above: Order Comment: 107.1 Performed By: #### L 501.6710, L101.9900 #### Laboratory [address] [place], [address] MCV (RBC) [Entitic vol] 89.6 fL Normal 81-99 [facility] Comment on above: Order Comment: 107.1 Performed By: #### L 501.6710, L101.9900 #### Laboratory [address] [place], [address] Monocytes/100 WBC (Bld) 7.3 % Normal 0-10 [facility] Comment on above: Order Comment: 107.1 Performed By: #### L 501.6710, L101.9900 #### Laboratory [address] [place], [address] Neutrophils/100 WBC (Bld) 68.4 % Normal 47-70 Comment on above: Order Comment: 107.1 Performed By: #### L 501.6710, L101.9900 #### Laboratory [address] [place], [address] Nucleated RBC (Bld) [#/Vol] 0 10*3/uL Normal 0-5 Comment on above: Order Comment: 107.1 Performed By: #### L 501.6710, L101.9900 #### Laboratory [address] [place], [address] Platelet mean volume (Bld) [Entitic vol] 9.3 fL Normal 6.2-12.0 Comment on above: Order Comment: 107.1 Performed By: #### L 501.6710, L101.9900 #### Laboratory [address] [place], [address] Platelets (Bld) [#/Vol] 309 10*3/uL Normal 150-450 Comment on above: Order Comment: 107.1 Performed By: #### L 501.6710, L101.9900 #### Laboratory [address] [place], [address] RBC (Bld) [#/Vol] 3.07 10*6/uL Low 4.2-5.4 [facility] Comment on above: Order Comment: 107.1 Performed By: #### L 501.6710, L101.9900 #### Laboratory [address] [place], [address] RDW SD 55.5 fl High 35.1-43.9 Comment on above: Order Comment: 107.1 Performed By: #### L 501.6710, L101.9900 #### Laboratory [address] [place], [address] WBC (Bld) [#/Vol] 5.5 10*3/uL Normal 4.4-11.0 [facility] Comment on above: Order Comment: 107.1 Performed By: #### L 501.6710, L101.9900 #### Laboratory [address] [place], [address] Carbon dioxide measurementOr dered By: Mario Mak on 12-24-2024 CO2 [Moles/Vol] 29.0 mmol/L 21.0-32.0 Chloride measurementOrdered By: Mario Mak on 12-24-2024 Chloride [Moles/Vol] 106 mmol/L 98-107 [facility] Comprehensive Metabolic Prof ilon 12-24-2024 Albumin [Mass/Vol] 2.0 g/dL Low 3.2-5.0 [facility] Comment on above: Order Comment: 107.1 Performed By: #### L 501.6710, L101.9900 #### Laboratory [address] [place], [address] Albumin/Globulin [Mass ratio] 0.6 {ratio} Low 0.9-2.4 Comment on above: Order Comment: 107.1 Performed By: #### L 501.6710, L101.9900 #### Laboratory [address] [place], [address] ALK P 108 U/L Normal 45-117 Comment on above: Order Comment: 107.1 Performed By: #### L 501.6710, L101.9900 #### Laboratory [address] [place], [address] ALT [Catalytic activity/Vol] U/L Low 13-56 Comment on above: Order Comment: 107.1 Performed By: #### L 501.6710, L101.9900 #### Laboratory [address] [place], [address] AST [Catalytic activity/Vol] 17 U/L Normal 15-37 Comment on above: Order Comment: 107.1 Performed By: #### L 501.6710, L101.9900 #### Laboratory [address] [place], [address] Bilirubin [Mass/Vol] 0.30 mg/dL Normal 0.20-1.00 [facility] Comment on above: Order Comment: 107.1 Result Comment: For patients on eltrombopag therapy, use of Dimension [place] TBIL is not recommended. Performed By: #### L 501.6710, L101.9900 #### Laboratory [address] [place], [address] BUN/CRE 30.0 RATIO High 10-20 Comment on above: Order Comment: 107.1 Performed By: #### L 501.6710, L101.9900 #### Laboratory [address] [place], [address] CA,Total 8.8 mg/dL Normal 8.5-10.1 Comment on above: Order Comment: 107.1 Performed By: #### L 501.6710, L101.9900 #### Laboratory [address] [place], [address] Chloride [Moles/Vol] 106 mmol/L Normal 98-107 [facility] Comment on above: Order Comment: 107.1 Performed By: #### L 501.6710, L101.9900 #### Laboratory [address] [place], [address] CO2 [Moles/Vol] 29.0 mmol/L Normal 21.0-32.0 Comment on above: Order Comment: 107.1 Performed By: #### L 501.6710, L101.9900 #### Laboratory [address] [place], [address] Creatinine [Mass/Vol] 0.83 mg/dL Normal 0.55-1.02 [facility] Comment on above: Order Comment: 107.1 Result Comment: The validity of the calculated GFR GFRAA in patients over 70 years has not been determined. Clinical correlation is essential. Performed By: #### L 501.6710, L101.9900 #### Laboratory [address] [place], [address] EST GFR - AA 83 mL/min Normal >60 Comment on above: Order Comment: 107.1 Result Comment: Afri can [place] GFR Calc Performed By: #### L 501.6710, L101.9900 #### Laboratory [address] [place], [address] GAP 7 Normal 5-15 Comment on above: Order Comment: 107.1 Performed By: #### L 501.6710, L101.9900 #### Laboratory [address] [place], [address] GFR/1.73 sq M.predicted among non-blacks MDRD (S/P/Bld) [Vol rate/Area] 68 mL/min/{1.73_m2} Normal >60 Comment on above: Order Comment: 107.1 Result Comment: Non- GFR Calc Performed By: #### L 501.10, L101.9900 #### Laboratory [address] [place], [address] Globulin (S) [Mass/Vol] 3.4 g/dL Normal 2.2-4.2 [facility] Comment on above: Order Comment: 107.1 Performed By: #### L 501.6710, L101.9900 #### Laboratory [address] [place], [address] Glucose [Mass/Vol] 76 mg/dL Normal 74-106 [facility] Comment on above: Order Comment: 107.1 Performed By: #### L 501.6710, L101.9900 #### Laboratory [address] [place], [address] Potassium [Moles/Vol] 4.0 mmol/L Normal 3.5-5.1 [facility] Comment on above: Order Comment: 107.1 Performed By: #### L 501.6710, L101.9900 #### Laboratory [address] [place], [address] Sodium [Moles/Vol] 141 mmol/L Normal 136-145 [facility] Comment on above: Order Comment: 107.1 Performed By: #### L 501.6710, L101.9900 #### Laboratory [address] [place], [address] T PROT 5.4 g/dL Low 6.4-8.2 Comment on above: Order Comment: 107.1 Performed By: #### L 501.6710, L101.9900 #### Laboratory [address] [place], [address] Urea nitrogen [Mass/Vol] 25 mg/dL High 7-18 Comment on above: Order Comment: 107.1 Performed By: #### L 501.6710, L101.9900 #### Laboratory [address] [place], [address] Eosinophil percentageOrdered By: Mario Mak on 12-24-2024 Eosinophils/100 WBC (Bld) 5.1 % High 0-5 Erythrocyte Sed Rateon 12-24 SED RATE 38 mm/hr High 0-30 Comment on above: Order Comment: 107.1 Performed By: #### L 501.6710, L101.9900 #### Laboratory [address] [place], [address] Erythrocyte distribution wid th (RBC) [Ratio]Ordered By: Mario Mak on 12-24-2024 Erythrocyte distribution width (RBC) [Entitic vol] 55.5 fL High 35.1-43.9 Erythrocyte distribution wid th ratioOrdered By: Mario Mak on 12-24-2024 Erythrocyte distribution width (RBC) [Ratio] 16.8 % High 11.6-14.6 Erythrocyte distribution wid th standard deviationOrdered By: Mario Mak on 12-24-2024 Erythrocyte distribution width (RBC) [Ratio] 55.5 fl High 35.1-43.9 Erythrocyte sedimentation ra teOrdered By: Mario Mak on 12-24-2024 ESR (Bld) [Velocity] 38 mm/h High 0-30 [facility] Estimated glomerular filtrat ion rate (GFR) AmericanOrdered By: Mario Mak on 12-24-2024 Estimated GFR (MDRD) Amer 83 mL/min >60 Comment on above: GFR Calc Folates, (Folic Acid)on 12-15 FOLATES 6.70 ng/mL Normal 3.1-55.4 Comment on above: Order Comment: 107.1 Performed By: #### L 501.6710, L101.9900 #### Laboratory [address] [place] [address]. [place], [address] Folic acid measurementOrdere d By: Mario Mak on 12-24-2024 Folate 6.70 ng/mL 3.1-55.4 Glomerular filtration rate ( GFR) estimationOrdered By: Mario Mak on 12-24-2024 Estimated GFR (MDRD) Non-Af Amer 68 mL/min >60 Comment on above: Non- GFR Calc GFR/1.73 sq M.predicted among non-blacks MDRD (S/P/Bld) [Vol rate/Area] 68 mL/min/{1.73_m2} >60 Comment on above: Non- GFR Calc Glucose measurementOrdered B y: Mario Mak on 12-24-2024 Glucose [Mass/Vol] 76 mg/dL 74-106 [facility] Hematocrit Auto (Bld) [Volum e fraction]Ordered By: Mario Mak on 12-24-2024 Hematocrit (Bld) [Volume fraction] 27.5 % Low 37-47 Hemoglobin measurementOrdere d By: Mario Mak on 12-24-2024 Hemoglobin (Bld) [Mass/Vol] 8.9 g/dL Low 12.0-15.0 Immature granulocytes/100 WB C Auto (Bld)Ordered By: Mario Mak on 12-24-2024 Immature granulocytes/100 WBC (Bld) 0.900 % 0.0-0.9 Comment on above: IG% - Immature Granu locytes (promyelocytes, myelocytes and metamyelocytes) > 1% indicates that a LEFT SHIFT is Present. Iron (Unsp spec) [Mass/Mass] Ordered By: Mario Mak on 12-24-2024 Iron [Mass/Vol] 58 ug/dL 50-170 Iron measurement (mass/mass) Ordered By: Mario Mak on 12-24-2024 Iron (Unsp spec) [Mass/Mass] 58 ug/dL 50-170 Iron saturation [Mass fracti on]Ordered By: Mario Mak on 12-24-2024 Iron Saturation 35.4 % 15.0-55.0 Iron+Iron Binding Capacityon 12-24-2024 Iron [Mass/Vol] 58 ug/dL Normal 50-170 Comment on above: Order Comment: 107.1 Performed By: #### L 501.6710, L101.9900 #### Laboratory [address] [place], [address] IRON SATURATION 35.4 Normal 15.0-55.0 Comment on above: Order Comment: 107.1 Performed By: #### L 501.6710, L101.9900 #### Laboratory [address] [place], [address] TIBC 164 ug/dL Low 250-450 Comment on above: Order Comment: 107.1 Performed By: #### L 501.6710, [id number] #### Laboratory [address] [place], [address] Laboratory - Chemistry and C hemistry - challengeOrdered By: Mario Mak on 12-24-2024 AST [Catalytic activity/Vol] 17 U/L 15-37 Lymphocytes Auto (Unsp spec) [#/Vol]Ordered By: Mario Mak on 12-24-2024 Lymphocytes (Bld) [#/Vol] 0.98 10*3/uL 0.83-4.51 Lymphocytes/100 WBC Auto (Un sp spec)Ordered By: Mario Mak on 12-24-2024 Lymphocytes/100 WBC (Bld) 17.8 % Low 19-41 MCV (mean corpuscular volume ) determinationOrdered By: Mario Mak on 12-24-2024 MCV (RBC) [Entitic vol] 89.6 fL 81-99 [facility] Mean corpuscular hemoglobin (MCH) determinationOrdered By: Mario Mak on 12-24-2024 MCH (RBC) [Entitic mass] 29.0 pg 27.0-32.0 Mean corpuscular hemoglobin concentration (MCHC) determinationOrdered By: Mario Mak on 12-24-2024 MCHC (RBC) [Mass/Vol] 32.4 g/dL 32-36 [facility] Mean platelet volume determi nationOrdered By: Mario Mak on 12-24-2024 Platelet mean volume (Bld) [Entitic vol] 9.3 fL 6.2-12.0 Monocyte percentageOrdered B y: Mario Mak on 12-24-2024 Monocytes/100 WBC (Bld) 7.3 % 0-10 [facility] Neutrophil percentageOrdered By: Mario Mak on 12-24-2024 Neutrophils/100 WBC (Bld) 68.4 % 47-70 Nucleated red blood cell per centageOrdered By: Mario Mak on 12-24-2024 Nucleated RBC/100 WBC (Bld) [Ratio] 0 % 0-5 Platelet countOrdered By: Moreno on 12-24-2024 Platelets (Bld) [#/Vol] 309 10*3/uL 150-450 Potassium measurementOrdered By: Mario Mak on 12-24-2024 Potassium [Moles/Vol] 4.0 mmol/L 3.5-5.1 [facility] RBC Auto (Bld) [#/Vol]Ordere d By: Mario Mak on 12-24-2024 RBC (Bld) [#/Vol] 3.07 10*6/uL Low 4.2-5.4 [facility] Serum anion gap measurementO rdered By: Mario Mak on 12-24-2024 Anion gap [Moles/Vol] 7 mmol/L 5-15 [facility] Serum globulin measurementOr dered By: Mario Mak on 12-24-2024 Globulin (S) [Mass/Vol] 3.4 g/dL 2.2-4.2 [facility] Serum or plasma alanine melara otransferase (ALT) measurementOrdered By: Mario Mak on 12-24-2024 ALT [Catalytic activity/Vol] U/L Low 13-56 Serum or plasma albumin roma urement (mass/volume)Ordered By: Mario Mak on 12-24-2024 Albumin [Mass/Vol] 2.0 g/dL Low 3.2-5.0 [facility] Serum or plasma alkaline krystal sphatase measurementOrdered By: Mario Mak on 12-24-2024 ALP [Catalytic activity/Vol] 108 U/L 45-117 Serum or plasma calcium roma urement (mass/volume)Ordered By: Mario Mak on 12-24-2024 Calcium [Mass/Vol] 8.8 mg/dL 8.5-10.1 [facility] Serum or plasma creatinine m easurement (mass/volume)Ordered By: Mario Mak on 12-24-2024 Creatinine [Mass/Vol] 0.83 mg/dL 0.55-1.[facility] [facility] Comment on above: The validity of the calculated GFR & GFRAA in patients over 70 years has not been determined. Clinical correlation is essential. Serum or plasma iron saturat ion measurement (mass fraction)Ordered By: Mario Mak on 12-24-2024 Iron saturation [Mass fraction] 35.4 % 15.0-55.0 Serum or plasma urea nitroge n measurement (mass/volume)Ordered By: Mario Mak on 12-24-2024 Urea nitrogen [Mass/Vol] 25 mg/dL High 7-18 Sodium levelOrdered By: Mario Mak on 12-24-2024 Sodium [Moles/Vol] 141 mmol/L 136-145 [facility] TIBCOrdered By: Mario Mak on 12-24-2024 Total Iron Binding Capacity 164 ug/dL Low 250-450 Total proteinOrdered By: Shwetha Mak on 12-24-2024 Protein [Mass/Vol] 5.4 g/dL Low 6.4-8.2 [facility] Vitamin B12on 12-24-2024 Cobalamin (Vitamin B12) [Mass/Vol] 407 pg/mL Normal 211-911 Comment on above: Order Comment: 107.1 Performed By: #### L 501.6710, L101.9900 #### Laboratory [address] [place], [place] [address], [address] Vitamin B12 measurementOrder ed By: Mario Mak on 12-24-2024 Cobalamin (Vitamin B12) [Mass/Vol] 407 pg/mL 211-911 White blood cell (WBC) count Ordered By: Mario Mak on 12-24-2024 WBC (Bld) [#/Vol] 5.5 10*3/uL 4.4-11.0 [facility] Albumin to globulin ratioOrd ered By: Mario Mak on 12-17-2024 Albumin/Globulin [Mass ratio] 0.6 {ratio} Low 0.9-2.4 Bilirubin, totalOrdered By: Mario Mak on 12-17-2024 Bilirubin [Mass/Vol] 0.30 mg/dL 0.20-1.00 [facility] Comment on above: For patients on eltr ombopag therapy, use of Dimension [place] TBIL is not recommended. Blood urea nitrogen (BUN)/cr eatinine ratioOrdered By: Mario Mak on 12-17-2024 Urea nitrogen/Creatinine [Mass ratio] 38.9 mg/mg High 10-20 CBC-Complete Blood Cnt No Di ffon 12-17-2024 Erythrocyte distribution width (RBC) [Ratio] 17.8 % High 11.6-14.6 Comment on above: Order Comment: 107-1 CLEAN CATCH Performed By: #### L 400.0001, .0 #### Laboratory [address] [place], [address] Hematocrit (Bld) [Volume fraction] 24.9 % Low 37-47 Comment on above: Order Comment: 107-1 CLEAN CATCH Performed By: #### L 400.0001, #### Laboratory [address] [place], [address] Hemoglobin (Bld) [Mass/Vol] 7.7 g/dL Low 12.0-15.0 Comment on above: Order Comment: 107-1 CLEAN CATCH Performed By: #### L 400.0001, #### Laboratory [address] [place], [address] MCH (RBC) [Entitic mass] 28.3 pg Normal 27.0-32.0 Comment on above: Order Comment: 107-1 CLEAN CATCH Performed By: #### L 400.0001, #### Laboratory [address] [place], [address] MCHC (RBC) [Mass/Vol] 30.9 g/dL Low 32-36 [facility] Comment on above: Order Comment: 107-1 CLEAN CATCH Performed By: #### L 400.0001, #### Laboratory [address] [place], [address] MCV (RBC) [Entitic vol] 91.5 fL Normal 81-99 [facility] Comment on above: Order Comment: 107-1 CLEAN CATCH Performed By: #### L 400.0001, #### Laboratory [address] [place], [address] Platelet mean volume (Bld) [Entitic vol] 8.7 fL Normal 6.2-12.0 Comment on above: Order Comment: 107-1 CLEAN CATCH Performed By: #### L 400.0001, .2199 #### Laboratory [address] [place], [address] Platelets (Bld) [#/Vol] 391 10*3/uL Normal 150-450 Comment on above: Order Comment: 107-1 CLEAN CATCH Performed By: #### L 400.0001, #### Laboratory [address] [place], [address] RBC (Bld) [#/Vol] 2.72 10*6/uL Low 4.2-5.4 [facility] Comment on above: Order Comment: 107-1 CLEAN CATCH Performed By: #### L 400.0001, #### Laboratory [address] [place], [address] RDW SD 59.4 fl High 35.1-43.9 Comment on above: Order Comment: 107-1 CLEAN CATCH Performed By: #### L 400.0001, #### Laboratory [address] [place], [address] WBC (Bld) [#/Vol] 7.6 10*3/uL Normal 4.4-11.0 [facility] Comment on above: Order Comment: 107-1 CLEAN CATCH Performed By: #### L 400.0001, #### Laboratory [address] [place], [address] Carbon dioxide measurementOr dered By: Mario Mak on 12-17-2024 CO2 [Moles/Vol] 25.0 mmol/L 21.0-32.0 Chloride measurementOrdered By: Mario Mak on 12-17-2024 Chloride [Moles/Vol] 104 mmol/L 98-107 [facility] Comprehensive Metabolic Prof ilon 12-17-2024 Albumin [Mass/Vol] 1.9 g/dL Low 3.2-5.0 [facility] Comment on above: Order Comment: 107-1 CLEAN CATCH Performed By: #### L 400.0001, M100.2199 #### Laboratory [address] [place], [address] Albumin/Globulin [Mass ratio] 0.6 {ratio} Low 0.9-2.4 Comment on above: Order Comment: 107-1 CLEAN CATCH Performed By: #### L 400.0001, M1.0 #### Laboratory [address] [place], [address] ALK P 96 U/L Normal 45-117 Comment on above: Order Comment: 107-1 CLEAN CATCH Performed By: #### L 400.0001, M1.0 #### Laboratory [address] [place], [address] ALT [Catalytic activity/Vol] 9 U/L Low 13-56 Comment on above: Order Comment: 107-1 CLEAN CATCH Performed By: #### L 400.0001, #### Laboratory [address] [place], [address] AST [Catalytic activity/Vol] 26 U/L Normal 15-37 Comment on above: Order Comment: 107-1 CLEAN CATCH Performed By: #### L 400.0001, M1 #### Laboratory [address] [place], [address] Bilirubin [Mass/Vol] 0.30 mg/dL Normal 0.20-1.00 [facility] Comment on above: Order Comment: 107-1 CLEAN CATCH Result Comment: For patients on eltrombopag therapy, use of Dimension [place] TBIL is not recommended. Performed By: #### L 400.0001, .2199 #### Laboratory [address] [place], [address] BUN/CRE 38.9 RATIO High 10-20 Comment on above: Order Comment: 107-1 CLEAN CATCH Performed By: #### L 400.0001, #### Laboratory [address] [place], [address] CA,Total 8.4 mg/dL Low 8.5-10.1 Comment on above: Order Comment: 107-1 CLEAN CATCH Performed By: #### L 400.0001, #### Laboratory [address] [place], [address] Chloride [Moles/Vol] 104 mmol/L Normal 98-107 [facility] Comment on above: Order Comment: 107-1 CLEAN CATCH Performed By: #### L 400.0001, #### Laboratory [address] [place], [address] CO2 [Moles/Vol] 25.0 mmol/L Normal 21.0-32.0 Comment on above: Order Comment: 107-1 CLEAN CATCH Performed By: #### L 400.0001, #### Laboratory [address] [place], [address] Creatinine [Mass/Vol] 0.77 mg/dL Normal 0.55-1.02 [facility] Comment on above: Order Comment: 107-1 CLEAN CATCH Result Comment: The validity of the calculated GFR GFRAA in patients over 70 years has not been determined. Clinical correlation is essential. Performed By: #### L 400.0001, .0 #### Laboratory [address] [place], [address] EST GFR - AA 91 mL/min Normal >60 Comment on above: Order Comment: 107-1 CLEAN CATCH Result Comment: Afri can [place] GFR Calc Performed By: #### L 400.0001, #### Laboratory [address] [place], [address] GAP 8 Normal 5-15 Comment on above: Order Comment: - CLEAN CATCH Performed By: #### L 400.0001, #### Laboratory [address] [place], [address] GFR/1.73 sq M.predicted among non-blacks MDRD (S/P/Bld) [Vol rate/Area] 75 mL/min/{1.73_m2} Normal >60 Comment on above: Order Comment: - CLEAN CATCH Result Comment: Non- GFR Calc Performed By: #### L 400.0001, #### Laboratory [address] [place], [address] Globulin (S) [Mass/Vol] 3.2 g/dL Normal 2.2-4.2 [facility] Comment on above: Order Comment: - CLEAN CATCH Performed By: #### L 400.0001, #### Laboratory [address] [place], [address] Glucose [Mass/Vol] 203 mg/dL High 74-106 [facility] Comment on above: Order Comment: 107-1 CLEAN CATCH Result Comment: Gluc ose result greater than or equal to 200 mg/dL suggests DIABETES MELLITUS per A.D.A. criteria. Performed By: #### L 400.0001, #### Laboratory [address] [place], [address] Potassium [Moles/Vol] 4.2 mmol/L Normal 3.5-5.1 [facility] Comment on above: Order Comment: 107-1 CLEAN CATCH Performed By: #### L 400.0001, M100.2200 #### Laboratory [address] [place], [address] Sodium [Moles/Vol] 137 mmol/L Normal 136-145 [facility] Comment on above: Order Comment: 107-1 CLEAN CATCH Performed By: #### L 400.0001, M100.2200 #### Laboratory [address] [place], [address] T PROT 5.1 g/dL Low 6.4-8.2 Comment on above: Order Comment: 107-1 CLEAN CATCH Performed By: #### L 400.0001, M100.2200 #### Laboratory [address] [place], [address] Urea nitrogen [Mass/Vol] 30 mg/dL High 7-18 Comment on above: Order Comment: 107-1 CLEAN CATCH Performed By: #### L 400.0001, M100.2200 #### Laboratory [address] [place], [address] Erythrocyte Sed Rateon 12-17 SED RATE 24 mm/hr Normal 0-30 Comment on above: Order Comment: 107-1 CLEAN CATCH Performed By: #### L 400.0001, M100.2200 #### Laboratory [address] [place], [address] Erythrocyte distribution wid th (RBC) [Ratio]Ordered By: Mario Mak on 12-17-2024 Erythrocyte distribution width (RBC) [Entitic vol] 59.4 fL High 35.1-43.9 Erythrocyte distribution wid th ratioOrdered By: Mario Mak on 12-17-2024 Erythrocyte distribution width (RBC) [Ratio] 17.8 % High 11.6-14.6 Erythrocyte distribution wid th standard deviationOrdered By: Mario Mak on 12-17-2024 Erythrocyte distribution width (RBC) [Ratio] 59.4 fl High 35.1-43.9 Erythrocyte sedimentation ra teOrdered By: Mario Mak on 12-17-2024 ESR (Bld) [Velocity] 24 mm/h 0-30 [facility] Estimated glomerular filtrat ion rate (GFR) AmericanOrdered By: Mario Mak on 12-17-2024 Estimated GFR (MDRD) Amer 91 mL/min >60 Comment on above: GFR Calc Glomerular filtration rate ( GFR) estimationOrdered By: Mario Mak on 12-17-2024 Estimated GFR (MDRD) Non-Af Amer 75 mL/min >60 Comment on above: Non- GFR Calc GFR/1.73 sq M.predicted among non-blacks MDRD (S/P/Bld) [Vol rate/Area] 75 mL/min/{1.73_m2} >60 Comment on above: Non- GFR Calc Glucose measurementOrdered B y: Mario Mak on 12-17-2024 Glucose [Mass/Vol] 203 mg/dL High 74-106 [facility] Comment on above: Glucose result great er than or equal to 200 mg/dLsuggests DIABETES MELLITUS per A.D.A. criteria. Hematocrit Auto (Bld) [Volum e fraction]Ordered By: Mario Mak on 12-17-2024 Hematocrit (Bld) [Volume fraction] 24.9 % Low 37-47 Hemoglobin measurementOrdere d By: Mario Mak on 12-17-2024 Hemoglobin (Bld) [Mass/Vol] 7.7 g/dL Low 12.0-15.0 Laboratory - Chemistry and C hemistry - challengeOrdered By: Mario Mak on 12-17-2024 AST [Catalytic activity/Vol] 26 U/L 15-37 MCV (mean corpuscular volume ) determinationOrdered By: Mario Mak on 12-17-2024 MCV (RBC) [Entitic vol] 91.5 fL 81-99 [facility] Mean corpuscular hemoglobin (MCH) determinationOrdered By: Mario Mak on 12-17-2024 MCH (RBC) [Entitic mass] 28.3 pg 27.0-32.0 Mean corpuscular hemoglobin concentration (MCHC) determinationOrdered By: Mario Mak on 12-17-2024 MCHC (RBC) [Mass/Vol] 30.9 g/dL Low 32-36 [facility] Mean platelet volume determi nationOrdered By: Mario Mak on 12-17-2024 Platelet mean volume (Bld) [Entitic vol] 8.7 fL 6.2-12.0 Platelet countOrdered By: Moreno on 12-17-2024 Platelets (Bld) [#/Vol] 391 10*3/uL 150-450 Potassium measurementOrdered By: Mario Mak on 12-17-2024 Potassium [Moles/Vol] 4.2 mmol/L 3.5-5.1 [facility] RBC Auto (Bld) [#/Vol]Ordere d By: Mario Mak on 12-17-2024 RBC (Bld) [#/Vol] 2.72 10*6/uL Low 4.2-5.4 [facility] Serum anion gap measurementO rdered By: Mario Mak on 12-17-2024 Anion gap [Moles/Vol] 8 mmol/L 5-15 [facility] Serum globulin measurementOr dered By: Mario Mak on 12-17-2024 Globulin (S) [Mass/Vol] 3.2 g/dL 2.2-4.2 [facility] Serum or plasma alanine melara otransferase (ALT) measurementOrdered By: Mario Mak on 12-17-2024 ALT [Catalytic activity/Vol] 9 U/L Low 13-56 Serum or plasma albumin roma urement (mass/volume)Ordered By: Mario Mak on 12-17-2024 Albumin [Mass/Vol] 1.9 g/dL Low 3.2-5.0 [facility] Serum or plasma alkaline krystal sphatase measurementOrdered By: Mario Mak on 12-17-2024 ALP [Catalytic activity/Vol] 96 U/L 45-117 Serum or plasma calcium roma urement (mass/volume)Ordered By: Mario Mak on 12-17-2024 Calcium [Mass/Vol] 8.4 mg/dL Low 8.5-10.1 [facility] Serum or plasma creatinine m easurement (mass/volume)Ordered By: Mario Mak on 12-17-2024 Creatinine [Mass/Vol] 0.77 mg/dL 0.55-1.02 [facility] Comment on above: The validity of the calculated GFR & GFRAA in patients over 70 years has not been determined. Clinical correlation is essential. Serum or plasma urea nitroge n measurement (mass/volume)Ordered By: Mario Mak on 12-17-2024 Urea nitrogen [Mass/Vol] 30 mg/dL High 7-18 Sodium levelOrdered By: Mario Mak on 12-17-2024 Sodium [Moles/Vol] 137 mmol/L 136-145 [facility] Total proteinOrdered By: Shwetha Mak on 12-17-2024 Protein [Mass/Vol] 5.1 g/dL Low 6.4-8.2 [facility] White blood cell (WBC) count Ordered By: Mario Mak on 12-17-2024 WBC (Bld) [#/Vol] 7.6 10*3/uL 4.4-11.0 [facility] ANES POSTPROC EVALon 025 ANES POSTPROC EVAL Normal [facility] ANES PRE-OPon 12-12-2024 ANES PRE-OP Normal [facility] BRIEF OP NOTon 12-12-2024 BRIEF OP NOT Normal [facility] Basic metabolic 2000 panelon 12-12-2024 Anion gap [Moles/Vol] 9 mmol/L Normal 8-15 [facility] Comment on above: Order Comment: Speci men Type: BLOOD SPECIMENOrdering Facility: [facility] Address: [address] [place] [address] Performed By: #### 2 4321-2 ####[facility]ORY[facility] [id number] [place] [address] [place] Calcium [Mass/Vol] 8.9 mg/dL Normal 8.5-10.2 [facility] Comment on above: Order Comment: Speci men Type: BLOOD SPECIMENOrdering Facility: [facility] Address: [address] [place] [address] Performed By: #### 2 4321-2 ####[facility]ORYCL[facility] [id number] [address] STATES [place] [facility] Chloride [Moles/Vol] 104 mmol/L Normal 98-107 [facility] Comment on above: Order Comment: Speci men Type: BLOOD SPECIMENOrdering Facility: [facility] Address: [address] [place] [address] Performed By: #### 2 4321-2 ####[facility]ORATORYCLIA [id number] [place] [id number] [place] CO2 [Moles/Vol] 24 mmol/L Normal 22-30 [facility] Comment on above: Order Comment: Speci men Type: BLOOD SPECIMENOrdering Facility: [facility] Address: [address] [place] [address] Performed By: #### 2 4321-2 ####[facility]ORYCL[facility] [id number] [address] [place] Creatinine [Mass/Vol] 0.74 mg/dL Normal 0.58-0.96 [facility] Comment on above: Order Comment: Speci men Type: BLOOD SPECIMENOrdering Facility: [facility] Address: [address] [place] [address] Performed By: #### 2 4321-2 ####[facility]ORYCL[facility] [id number] [address] Creatinine and Glomerular filtration rate.predicted panel (S/P/Bld) 78 mL/min/1.73m??? Normal >=60 [facility] Comment on above: Order Comment: Speci men Type: BLOOD SPECIMENOrdering Facility: [facility] Address: [address] [place] [address] Result Comment: Hilda mated Glomerular Filtration Rate [...] Performed By: #### 2 4321-2 ####[facility]ORYCLIA [id number] [place] [id number] [place] Glucose [Mass/Vol] 139 mg/dL High 74-99 [facility] Comment on above: Order Comment: Fan meade Type: BLOOD SPECIMENOrdering Facility: [facility] Address: [address] [place] [address] Result Comment: The [place] Diabetes Association (ADA) provides guidance for cutoff [...] Standards of Medical Care in Diabetes 2016, [place] [employer] Association. Diabetes Care. 2016.39(Suppl 1). Performed By: #### 2 4321-2 ####[facility]ORYCLIA [id number] [place] [id number] [place] Potassium [Moles/Vol] 3.8 mmol/L Normal 3.7-5.1 [facility] Comment on above: Order Comment: Fan meade Type: BLOOD SPECIMENOrdering Facility: [facility] Address: [address] [place] [address] Performed By: #### 2 4321-2 ####[facility]ORYCLIA [id number] [place] [id number] [place] Sodium [Moles/Vol] 137 mmol/L Normal 136-144 [facility] Comment on above: Order Comment: Fan meade Type: BLOOD SPECIMENOrdering Facility: [facility] Address: [address] [place] [address] Performed By: #### 2 4321-2 ####[facility]ORATORYCLIA [id number] [place] [address] [place] Urea nitrogen [Mass/Vol] 24 mg/dL High 7-21 [facility] Comment on above: Order Comment: Speci men Type: BLOOD SPECIMENOrdering Facility: [facility] Address: [address] [place] [address] Performed By: #### 2 4321-2 ####[facility]ORYCLIA [id number] [place] [address] [place] CASE MANAGEMon 12-12-2024 CASE MANAGEM Normal [facility] CASE MANAGEM Normal [facility] CBC W Auto Differential pane l (Bld)on 12-12-2024 Basophils (Bld) [#/Vol] 0.03 10*3/uL Normal <0.11 [facility] Comment on above: Order Comment: Speci men Type: BLOOD SPECIMENOrdering Facility: [facility] Address: [address] [place] [address] Performed By: #### 5 7021-8 ####[facility]ORATORYCLIA [id number] [place] [address] [place] Basophils/100 WBC (Bld) 0.3 % Normal [place] Comment on above: Order Comment: Speci men Type: BLOOD SPECIMENOrdering Facility: [facility] Address: [address] [place] [address] Performed By: #### 5 7021-8 ####[facility]ATORYCLIA [id number] [place] [address] [place] Differential cell count method Nom (Bld) Auto Normal [facility] Comment on above: Order Comment: Speci men Type: BLOOD SPECIMENOrdering Facility: [facility] Address: [address] [place] [address] Performed By: #### 5 7021-8 ####[facility]ORATORYCLIA [id number] [place] [address] [place] Eosinophils (Bld) [#/Vol] 0.15 10*3/uL Normal <0.46 [facility] Comment on above: Order Comment: Speci men Type: BLOOD SPECIMENOrdering Facility: [facility] Address: [address] [place] [address] Performed By: #### 5 7021-8 ####[facility]ORATORYCLIA [id number] [place] [address] [place] Eosinophils/100 WBC (Bld) 1.7 % Normal [facility] Comment on above: Order Comment: Speci men Type: BLOOD SPECIMENOrdering Facility: [facility] Address: [address] [place] [address] Performed By: #### 5 7021-8 ####[facility]ORATORYCLIA [id number] [place] [address] [place] Erythrocyte distribution width (RBC) [Ratio] 16.7 % High 11.5-15.0 [facility] Comment on above: Order Comment: Speci men Type: BLOOD SPECIMENOrdering Facility: [facility] Address: [address] [place] [address] Performed By: #### 5 7021-8 ####[facility]ORATORYCLIA [id number] [address] [place] Hematocrit (Bld) [Volume fraction] 24.4 % Low 36.0-46.0 [facility] Comment on above: Order Comment: Speci men Type: BLOOD SPECIMENOrdering Facility: [facility] Address: [address] [place] [address] Performed By: #### 5 7021-8 ####[facility]ORYCLIA [id number] [place] [address] [place] Hemoglobin (Bld) [Mass/Vol] 7.8 g/dL Low 11.5-15.5 [facility] Comment on above: Order Comment: Speci men Type: BLOOD SPECIMENOrdering Facility: [facility] Address: [address] [place] [address] Performed By: #### 5 7021-8 ####[facility]ORYCLIA [id number] [address] [place] Immature granulocytes (Bld) [#/Vol] 0.10 10*3/uL High <0.10 [facility] Comment on above: Order Comment: Speci men Type: BLOOD SPECIMENOrdering Facility: [facility] Address: [address] [place] [address] Performed By: #### 5 7021-8 ####[facility]ORYCLIA [id number] [address] Immature granulocytes/100 WBC (Bld) 1.2 % Normal [facility] Comment on above: Order Comment: Speci men Type: BLOOD SPECIMENOrdering Facility: [facility] Address: [address] [place] [address] Performed By: #### 5 7021-8 ####[facility]ATORYCLIA [id number] [place] [address] [place] Lymphocytes (Bld) [#/Vol] 1.19 10*3/uL Normal 1.00-4.00 [facility] Comment on above: Order Comment: Speci men Type: BLOOD SPECIMENOrdering Facility: [facility] Address: [address] [place] [address] Performed By: #### 5 7021-8 ####[facility]ATORYCLIA [id number] [address] Lymphocytes/100 WBC (Bld) 13.7 % Normal [facility] Comment on above: Order Comment: Speci men Type: BLOOD SPECIMENOrdering Facility: [facility] Address: [address] [place] [address] Performed By: #### 5 7021-8 ####[facility]ATORYCLIA [id number] [place] [address] [place] MCH (RBC) [Entitic mass] 28.1 pg Normal 26.0-34.0 [facility] Comment on above: Order Comment: Speci men Type: BLOOD SPECIMENOrdering Facility: [facility] Address: [address] [place] [address] Performed By: #### 5 7021-8 ####[facility]ORYCLIA [id number] [address] [place] MCHC (RBC) [Mass/Vol] 32.0 g/dL Normal 30.5-36.0 [facility] Comment on above: Order Comment: Speci men Type: BLOOD SPECIMENOrdering Facility: [facility] Address: [address] [place] [address] Performed By: #### 5 7021-8 ####[facility]ORATORYCLIA [id number] [place] [address] [place] MCV (RBC) [Entitic vol] 87.8 fL Normal 80.0-100.0 [place] Comment on above: Order Comment: Speci men Type: BLOOD SPECIMENOrdering Facility: [facility] Address: [address] [place] [address] Performed By: #### 5 7021-8 ####[facility]ORATORYCLIA [id number] [place] [address] [place] Monocytes (Bld) [#/Vol] 0.66 10*3/uL Normal <0.87 [facility] Comment on above: Order Comment: Speci men Type: BLOOD SPECIMENOrdering Facility: [facility] Address: [address] [place] [address] Performed By: #### 5 7021-8 ####[facility]ORATORYCLIA [id number] [address] [place] Monocytes/100 WBC (Bld) 7.6 % Normal [place] Comment on above: Order Comment: Speci men Type: BLOOD SPECIMENOrdering Facility: [facility] Address: [address] [place] [address] Performed By: #### 5 7021-8 ####[facility]ORATORYCLIA [id number] [place] [address] [place] Neutrophils (Bld) [#/Vol] 6.54 10*3/uL Normal 1.45-7.50 [facility] Comment on above: Order Comment: Speci men Type: BLOOD SPECIMENOrdering Facility: [facility] Address: [address] [place] [address] Performed By: #### 5 7021-8 ####[facility]ORATORYCLIA [id number] [address] [place] Neutrophils/100 WBC (Bld) 75.5 % Normal [facility] Comment on above: Order Comment: Speci men Type: BLOOD SPECIMENOrdering Facility: [facility] [facility] Address: [address] [place] [address] Performed By: #### 5 7021-8 ####VILLARREAL LABORATORYCLIA [id number] [place] [address] [place] Nucleated RBC (Bld) [#/Vol] 10*3/uL Normal <0.01 [facility] Comment on above: Order Comment: Speci men Type: BLOOD SPECIMENOrdering Facility: [facility] Address: [address] [place] [address] Performed By: #### 5 7021-8 ####VILLARREAL LABORATORYCLIA [id number] [address] [place] Nucleated RBC/100 WBC (Bld) [Ratio] 0.0 /100 WBC Normal [facility] Comment on above: Order Comment: Speci men Type: BLOOD SPECIMENOrdering Facility: [facility] Address: [address] [place] [address] Performed By: #### 5 7021-8 ####VILLARREAL LABORATORYCLIA [id number] [place] [address] [place] Platelet mean volume (Bld) [Entitic vol] 8.0 fL Low 9.0-12.7 [facility] Comment on above: Order Comment: Speci men Type: BLOOD SPECIMENOrdering Facility: [facility] Address: [address] [place] [address] Performed By: #### 5 7021-8 ####VILLARREAL LABORATORYCLIA [id number] [place] [address] [place] Platelets (Bld) [#/Vol] 571 10*3/uL High 150-400 [facility] Comment on above: Order Comment: Speci men Type: BLOOD SPECIMENOrdering Facility: [facility] Address: [address] [place] [address] [place] [address] Performed By: #### 5 7021-8 ####VILLARREAL LABORATORYCLIA [id number] [place] [address] [place] RBC (Bld) [#/Vol] 2.78 10*6/uL Low 3.90-5.20 [facility] Comment on above: Order Comment: Speci men Type: BLOOD SPECIMENOrdering Facility: [facility] Address: [address] [place] [address] Performed By: #### 5 7021-8 ####VILLARREAL LABORATORYCLIA [id number] [place] [address] [place] WBC (Bld) [#/Vol] 8.67 10*3/uL Normal 3.70-11.00 [facility] Comment on above: Order Comment: Speci men Type: BLOOD SPECIMENOrdering Facility: [facility] Address: [address] [place] [address] Performed By: #### 5 7021-8 ####VILLARREAL LABORATORYCLIA [id number] [place] [address] [place] CNDSon 12-12-2024 CNDS Normal [facility] CONSULT PROGon 12-12-2024 CONSULT PROG [facility] OPERATIVE NOon 12-12-2024 OPERATIVE NO [facility] Basic metabolic 2000 panelon 12-11-2024 Anion gap [Moles/Vol] 11 mmol/L Normal 8-15 [facility] Comment on above: Order Comment: Speci men Type: BLOOD SPECIMENOrdering Facility: [facility] Address: [address] [place] [address] Performed By: #### 2 4321-2 ####VILLARREAL LABORATORYCLIA [id number] [place] [address] [place] Calcium [Mass/Vol] 9.1 mg/dL Normal 8.5-10.2 [facility] Comment on above: Order Comment: Speci men Type: BLOOD SPECIMENOrdering Facility: [facility] Address: [address] [place] [address] Performed By: #### 2 4321-2 ####VILLARREAL LABORATORYCLIA [id number] [place] [address] [place] Chloride [Moles/Vol] 102 mmol/L Normal 98-107 [facility] Comment on above: Order Comment: Speci men Type: BLOOD SPECIMENOrdering Facility: [facility] Address: [address] [place] [address] Performed By: #### 2 4321-2 ####VILLARREAL LABORATORYCLIA [id number] [place] [id number] [place] CO2 [Moles/Vol] 25 mmol/L Normal 22-30 [facility] Comment on above: Order Comment: Fan meade Type: BLOOD SPECIMENOrdering Facility: [facility] Address: [address] [place] [address] Performed By: #### 2 4321-2 ####VILLARREAL LABORATORYCLIA [id number] [place] [address] [place] Creatinine [Mass/Vol] 0.80 mg/dL Normal 0.58-0.96 [facility] Comment on above: Order Comment: Fan meade Type: BLOOD SPECIMENOrdering Facility: [facility] Address: [address] [place] [address] Performed By: #### 2 4321-2 ####VILLARREAL LABORATORYCLIA [id number] [address] Creatinine and Glomerular filtration rate.predicted panel (S/P/Bld) 71 mL/min/1.73m??? Normal >=60 [facility] Comment on above: Order Comment: Fan meade Type: BLOOD SPECIMENOrdering Facility: [facility] Address: [address] [place] [address] Result Comment: Hilda mated Glomerular Filtration Rate [...] Performed By: #### 2 4321-2 ####VILLARREAL LABORATORYCLIA [id number] [place] [id number] [place] Glucose [Mass/Vol] 203 mg/dL High 74-99 [facility] Comment on above: Order Comment: Fan meade Type: BLOOD SPECIMENOrdering Facility: [facility] Address: [address] [place] [address] Result Comment: The [place] [employer] (ADA) provides guidance for cutoff [...] Standards of Medical Care in Diabetes 2016, [place] [employer]. Diabetes Care. 2016.39(Suppl 1). Performed By: #### 2 4321-2 ####VILLARREAL LABORATORYCLIA [id number] [place] [address] [place] [facility] Potassium [Moles/Vol] 3.8 mmol/L Normal 3.7-5.1 [facility] Comment on above: Order Comment: Speci men Type: BLOOD SPECIMENOrdering Facility: [facility] Address: [address] [place] [address] Performed By: #### 2 4321-2 ####VILLARREAL LABORATORYCLIA [id number] [address] [place] [facility] Sodium [Moles/Vol] 138 mmol/L Normal 136-144 [facility] Comment on above: Order Comment: Speci men Type: BLOOD SPECIMENOrdering Facility: [facility] Address: [address] [place] [address] Performed By: #### 2 4321-2 ####VILLARREAL LABORATORYCLIA [id number] [place] [address] [place] Urea nitrogen [Mass/Vol] 33 mg/dL High 7-21 [facility] Comment on above: Order Comment: Speci men Type: BLOOD SPECIMENOrdering Facility: [facility] Address: [address] [place] [address] Performed By: #### 2 4321-2 ####VILLARREAL LABORATORYCLIA [id number] [address] [place] CASE MANAGEMon 12-11-2024 CASE MANAGEM Normal [facility] CBC W Auto Differential pane l (Bld)on 12-11-2024 Basophils (Bld) [#/Vol] 10*3/uL Normal <0.11 [place] Comment on above: Order Comment: Speci men Type: BLOOD SPECIMENOrdering Facility: [facility] Address: [address] [place] [address] Performed By: #### 5 7021-8 ####VILLARREAL LABORATORYCLIA [id number] [place] [address] [place] Basophils/100 WBC (Bld) 0.2 % Normal [place] Comment on above: Order Comment: Speci men Type: BLOOD SPECIMENOrdering Facility: [facility] Address: [address] [place] [address] Performed By: #### 5 7021-8 ####VILLARREAL LABORATORYCLIA [id number] [place] [address] [place] Differential cell count method Nom (Bld) Auto Normal [facility] Comment on above: Order Comment: Speci men Type: BLOOD SPECIMENOrdering Facility: [facility] Address: [address] [place] [address] Performed By: #### 5 7021-8 ####VILLARREAL LABORATORYCLIA [id number] [place] [address] [place] Eosinophils (Bld) [#/Vol] 0.11 10*3/uL Normal <0.46 [facility] Comment on above: Order Comment: Speci men Type: BLOOD SPECIMENOrdering Facility: [facility] Address: [address] [place] [address] Performed By: #### 5 7021-8 ####VILLARREAL LABORATORYCLIA [id number] [place] [address] [place] Eosinophils/100 WBC (Bld) 1.1 % Normal [facility] Comment on above: Order Comment: Speci men Type: BLOOD SPECIMENOrdering Facility: [facility] Address: [address] [place] [address] Performed By: #### 5 7021-8 ####VILLARREAL LABORATORYCLIA [id number] [place] [address] [place] Erythrocyte distribution width (RBC) [Ratio] 16.8 % High 11.5-15.0 [facility] Comment on above: Order Comment: Speci men Type: BLOOD SPECIMENOrdering Facility: [facility] Address: [address] [place] [address] Performed By: #### 5 7021-8 ####VILLARREAL LABORATORYCLIA [id number] [place] [address] [place] Hematocrit (Bld) [Volume fraction] 25.2 % Low 36.0-46.0 [facility] Comment on above: Order Comment: Speci men Type: BLOOD SPECIMENOrdering Facility: [facility] Address: [address] [place] [address] Performed By: #### 5 7021-8 ####VILLARREAL LABORATORYCLIA [id number] [place] [address] [place] Hemoglobin (Bld) [Mass/Vol] 8.4 g/dL Low 11.5-15.5 [facility] Comment on above: Order Comment: Speci men Type: BLOOD SPECIMENOrdering Facility: [facility] Address: [address] [place] [address] Performed By: #### 5 7021-8 ####VILLARREAL LABORATORYCLIA [id number] [address] [place] Immature granulocytes (Bld) [#/Vol] 0.16 10*3/uL High <0.10 [facility] Comment on above: Order Comment: Speci men Type: BLOOD SPECIMENOrdering Facility: [facility] Address: [address] [place] [address] Performed By: #### 5 7021-8 ####VILLARREAL LABORATORYCLIA [id number] [address] [place] Immature granulocytes/100 WBC (Bld) 1.5 % Normal [facility] Comment on above: Order Comment: Speci men Type: BLOOD SPECIMENOrdering Facility: [facility] Address: [address] [place] [address] Performed By: #### 5 7021-8 ####VILLARREAL LABORATORYCLIA [id number] [address] [place] Lymphocytes (Bld) [#/Vol] 1.13 10*3/uL Normal 1.00-4.00 [facility] Comment on above: Order Comment: Speci men Type: BLOOD SPECIMENOrdering Facility: [facility] Address: [address] [place] [address] Performed By: #### 5 7021-8 ####VILLARREAL LABORATORYCLIA [id number] [address] Lymphocytes/100 WBC (Bld) 10.9 % Normal [facility] Comment on above: Order Comment: Speci men Type: BLOOD SPECIMENOrdering Facility: [facility] Address: [address] [place] [address] Performed By: #### 5 7021-8 ####VILLARREAL LABORATORYCLIA [id number] [address] [place] [facility] MCH (RBC) [Entitic mass] 28.7 pg Normal 26.0-34.0 [facility] Comment on above: Order Comment: Speci men Type: BLOOD SPECIMENOrdering Facility: [facility] Address: [address] [place] [address] Performed By: #### 5 7021-8 ####VILLARREAL LABORATORYCLIA [id number] [address] MCHC (RBC) [Mass/Vol] 33.3 g/dL Normal 30.5-36.0 [facility] Comment on above: Order Comment: Speci men Type: BLOOD SPECIMENOrdering Facility: [facility] Address: [address] [place] [address] Performed By: #### 5 7021-8 ####VILLARREAL LABORATORYCLIA [id number] [address] MCV (RBC) [Entitic vol] 86.0 fL Normal 80.0-100.0 [place] Comment on above: Order Comment: Speci men Type: BLOOD SPECIMENOrdering Facility: [facility] Address: [address] [place] [address] Performed By: #### 5 7021-8 ####VILLARREAL LABORATORYCLIA [id number] [place] [address] [place] Monocytes (Bld) [#/Vol] 0.64 10*3/uL Normal <0.87 [facility] Comment on above: Order Comment: Speci men Type: BLOOD SPECIMENOrdering Facility: [facility] Address: [address] [place] [address] Performed By: #### 5 7021-8 ####VILLARREAL LABORATORYCLIA [id number] [place] [address] [place] Monocytes/100 WBC (Bld) 6.2 % Normal [place] Comment on above: Order Comment: Speci men Type: BLOOD SPECIMENOrdering Facility: [facility] Address: [address] [place] [address] Performed By: #### 5 7021-8 ####VILLARREAL LABORATORYCLIA [id number] [place] [address] [place] Neutrophils (Bld) [#/Vol] 8.31 10*3/uL High 1.45-7.50 [facility] Comment on above: Order Comment: Speci men Type: BLOOD SPECIMENOrdering Facility: [facility] Address: [address] [place] [address] Performed By: #### 5 7021-8 ####VILLARREAL LABORATORYCLIA [id number] [address] [place] Neutrophils/100 WBC (Bld) 80.1 % Normal [facility] Comment on above: Order Comment: Speci men Type: BLOOD SPECIMENOrdering Facility: [facility] Address: [address] [place] [address] Performed By: #### 5 7021-8 ####VILLARREAL LABORATORYCLIA [id number] [place] [address] [place] Nucleated RBC (Bld) [#/Vol] 10*3/uL Normal <0.01 [facility] Comment on above: Order Comment: Speci men Type: BLOOD SPECIMENOrdering Facility: [facility] Address: [address] [place] [address] Performed By: #### 5 7021-8 ####VILLARREAL LABORATORYCLIA [id number] [address] [place] Nucleated RBC/100 WBC (Bld) [Ratio] 0.0 /100 WBC Normal [facility] Comment on above: Order Comment: Speci men Type: BLOOD SPECIMENOrdering Facility: [facility] Address: [address] [place] [address] Performed By: #### 5 7021-8 ####VILLARREAL LABORATORYCLIA [id number] [address] [place] Platelet mean volume (Bld) [Entitic vol] 7.9 fL Low 9.0-12.7 [facility] Comment on above: Order Comment: Speci men Type: BLOOD SPECIMENOrdering Facility: [facility] Address: [address] [place] [address] Performed By: #### 5 7021-8 ####VILLARREAL LABORATORYCLIA [id number] [address] Platelets (Bld) [#/Vol] 600 10*3/uL High 150-400 [facility] Comment on above: Order Comment: Speci men Type: BLOOD SPECIMENOrdering Facility: [facility] Address: [address] [place] [address] [place] [address] Performed By: #### 5 7021-8 ####VILLARREAL LABORATORYCLIA [id number] [address] [place] RBC (Bld) [#/Vol] 2.93 10*6/uL Low 3.90-5.20 [facility] Comment on above: Order Comment: Speci men Type: BLOOD SPECIMENOrdering Facility: [facility] Address: [address] [place] [address] Performed By: #### 5 7021-8 ####VILLARREAL LABORATORYCLIA [id number] [address] WBC (Bld) [#/Vol] 10.37 10*3/uL Normal 3.70-11.00 [facility] Comment on above: Order Comment: Speci men Type: BLOOD SPECIMENOrdering Facility: [facility] Address: [address] [place] [address] Performed By: #### 5 7021-8 ####VILLARREAL LABORATORYCLIA [id number] [place] [address] [place] CONSULT PROGon 12-11-2024 [facility] CONSULT PROG [facility] CONSULT PROG Normal [facility] CONSULT PROG Normal [facility] NUTRITIONon 12-11-2024 NUTRITION Normal [facility] ANES POSTPROC EVALon 025 ANES POSTPROC EVAL [facility] ANES PRE-OPon 12-10-2024 ANES PRE-OP [facility] BRIEF OP NOTon 12-10-2024 BRIEF OP NOT [facility] Basic metabolic 2000 panelon 12-10-2024 Anion gap [Moles/Vol] 10 mmol/L Normal 8-15 [facility] Comment on above: Order Comment: Speci men Type: BLOOD SPECIMENOrdering Facility: [facility] Address: [address] [place] [address] Performed By: #### 2 4321-2 ####VILLARREAL LABORATORYCLIA [id number] [place] [address] [place] Calcium [Mass/Vol] 8.9 mg/dL Normal 8.5-10.2 [facility] Comment on above: Order Comment: Speci men Type: BLOOD SPECIMENOrdering Facility: [facility] Address: [facility] [place] [address] Performed By: #### 2 4321-2 ####VILLARREAL LABORATORYCLIA [id number] [place] [address] [place] Chloride [Moles/Vol] 102 mmol/L Normal 98-107 [facility] Comment on above: Order Comment: Speci men Type: BLOOD SPECIMENOrdering Facility: [facility] Address: [facility] [place] [address] Performed By: #### 2 4321-2 ####VILLARREAL LABORATORYCLIA [id number] [place] [address] [place] CO2 [Moles/Vol] 26 mmol/L Normal 22-30 [facility] Comment on above: Order Comment: Fan halina Type: BLOOD SPECIMENOrdering Facility: [facility] Address: [address] [place] [address] Performed By: #### 2 4321-2 ####VILLARREAL LABORATORYCLIA [id number] [address] STATES OF [facility] Creatinine [Mass/Vol] 0.68 mg/dL Normal 0.58-0.96 [facility] Comment on above: Order Comment: Fan halian Type: BLOOD SPECIMENOrdering Facility: [facility] Address: [address] [place] [address] Performed By: #### 2 4321-2 ####VILLARREAL LABORATORYCLIA [id number] [address] Creatinine and Glomerular filtration rate.predicted panel (S/P/Bld) 84 mL/min/1.73m??? Normal >=60 [facility] Comment on above: Order Comment: Fan meade Type: BLOOD SPECIMENOrdering Facility: [facility] Address: [address] [place] [address] Result Comment: Hilda mated Glomerular Filtration Rate [...] Performed By: #### 2 4321-2 ####VILLARREAL LABORATORYCLIA [id number] [address] Glucose [Mass/Vol] 79 mg/dL Normal 74-99 [facility] Comment on above: Order Comment: Kateleroy meade Type: BLOOD SPECIMENOrdering Facility: [facility] Address: [address] [place] [address] Result Comment: The [place] [employer] (ADA) provides guidance for cutoff [...] Standards of Medical Care in Diabetes 2016, [place] [employer]. Diabetes Care. 2016.39(Suppl 1). Performed By: #### 2 4321-2 ####VILLARREAL LABORATORYCLIA [id number] [address] [place] Potassium [Moles/Vol] 4.1 mmol/L Normal 3.7-5.1 [facility] Comment on above: Order Comment: Fan meade Type: BLOOD SPECIMENOrdering Facility: [facility] Address: [address] [place] [address] Performed By: #### 2 4321-2 ####VILLARREAL LABORATORYCLIA [id number] [address] [place] Sodium [Moles/Vol] 138 mmol/L Normal 136-144 [facility] Comment on above: Order Comment: aFn meade Type: BLOOD SPECIMENOrdering Facility: [facility] Address: [address] [place] [address] Performed By: #### 2 4321-2 ####VILLARREAL LABORATORYCLIA [id number] [address] [place] [facility] Urea nitrogen [Mass/Vol] 45 mg/dL High 7-21 [facility] Comment on above: Order Comment: Fan meade Type: BLOOD SPECIMENOrdering Facility: [facility] Address: [address] [place] [address] Performed By: #### 2 4321-2 ####VILLARREAL LABORATORYCLIA [id number] [address] [place] CASE MANAGEMon 12-10-2024 CASE MANAGEM Normal [facility] CBC W Auto Differential pane l (Bld)on 12-10-2024 Basophils (Bld) [#/Vol] 10*3/uL Normal <0.11 [facility] Comment on above: Order Comment: Fan meade Type: BLOOD SPECIMENOrdering Facility: [facility] Address: [address] [place] [address] Performed By: #### 5 7021-8 ####VILLARREAL LABORATORYCLIA [id number] [place] [address] [place] Basophils/100 WBC (Bld) 0.2 % Normal [place] Comment on above: Order Comment: Speci men Type: BLOOD SPECIMENOrdering Facility: [facility] Address: [address] [place] [address] Performed By: #### 5 7021-8 ####VILLARREAL LABORATORYCLIA [id number] [place] [address] [place] Differential cell count method Nom (Bld) Auto Normal [facility] Comment on above: Order Comment: Speci men Type: BLOOD SPECIMENOrdering Facility: [facility] Address: [address] [place] [address] Performed By: #### 5 7021-8 ####VILLARREAL LABORATORYCLIA [id number] [place] [address] [place] Eosinophils (Bld) [#/Vol] 0.07 10*3/uL Normal <0.46 [facility] Comment on above: Order Comment: Speci men Type: BLOOD SPECIMENOrdering Facility: [facility] Address: [address] [place] [address] Performed By: #### 5 7021-8 ####VILLARREAL LABORATORYCLIA [id number] [address] Eosinophils/100 WBC (Bld) 0.6 % Normal [facility] Comment on above: Order Comment: Speci men Type: BLOOD SPECIMENOrdering Facility: [facility] Address: [address] [place] [address] Performed By: #### 5 7021-8 ####VILLARREAL LABORATORYCLIA [id number] [place] [address] [place] Erythrocyte distribution width (RBC) [Ratio] 16.6 % High 11.5-15.0 [facility] Comment on above: Order Comment: Speci men Type: BLOOD SPECIMENOrdering Facility: [facility] Address: [address] [place] [address] Performed By: #### 5 7021-8 ####VILLARREAL LABORATORYCLIA [id number] [place] [address] [place] Hematocrit (Bld) [Volume fraction] 23.9 % Low 36.0-46.0 [facility] Comment on above: Order Comment: Speci men Type: BLOOD SPECIMENOrdering Facility: [facility] Address: [address] [place] [address] Performed By: #### 5 7021-8 ####VILLARREAL LABORATORYCLIA [id number] [place] [address] [place] Hemoglobin (Bld) [Mass/Vol] 7.8 g/dL Low 11.5-15.5 [facility] Comment on above: Order Comment: Speci men Type: BLOOD SPECIMENOrdering Facility: [facility] Address: [address] [place] [address] Performed By: #### 5 7021-8 ####VILLARREAL LABORATORYCLIA [id number] [place] [address] [place] Immature granulocytes (Bld) [#/Vol] 0.16 10*3/uL High <0.10 [facility] Comment on above: Order Comment: Speci men Type: BLOOD SPECIMENOrdering Facility: [facility] Address: [address] [place] [address] Performed By: #### 5 7021-8 ####VILLARREAL LABORATORYCLIA [id number] [place] [address] [place] Immature granulocytes/100 WBC (Bld) 1.4 % Normal [facility] Comment on above: Order Comment: Speci men Type: BLOOD SPECIMENOrdering Facility: [facility] Address: [address] [place] [address] Performed By: #### 5 7021-8 ####VILLARREAL LABORATORYCLIA [id number] [place] [address] [place] Lymphocytes (Bld) [#/Vol] 1.18 10*3/uL Normal 1.00-4.00 [facility] Comment on above: Order Comment: Speci men Type: BLOOD SPECIMENOrdering Facility: [facility] [facility] Address: [address] [place] [address] Performed By: #### 5 7021-8 ####[facility] LABORATORYCLIA [id number] [address] Lymphocytes/100 WBC (Bld) 10.3 % Normal [facility] Comment on above: Order Comment: Speci men Type: BLOOD SPECIMENOrdering Facility: [facility] Address: [address] [place] [address] Performed By: #### 5 7021-8 ####[facility] LABORATORYCLIA [id number] [address] [place] MCH (RBC) [Entitic mass] 28.9 pg Normal 26.0-34.0 [facility] Comment on above: Order Comment: Speci men Type: BLOOD SPECIMENOrdering Facility: [facility] Address: [address] [place] [address] Performed By: #### 5 7021-8 ####[facility] LABORATORYCLIA [id number] [address] [place] MCHC (RBC) [Mass/Vol] 32.6 g/dL Normal 30.5-36.0 [facility] Comment on above: Order Comment: Speci men Type: BLOOD SPECIMENOrdering Facility: [facility] Address: [address] [place] [address] Performed By: #### 5 7021-8 ####[facility] LABORATORYCLIA [id number] [address] [place] MCV (RBC) [Entitic vol] 88.5 fL Normal 80.0-100.0 [place] Comment on above: Order Comment: Speci men Type: BLOOD SPECIMENOrdering Facility: [facility] Address: [address] [place] [address] Performed By: #### 5 7021-8 ####[facility] LABORATORYCLIA [id number] [address] [place] Monocytes (Bld) [#/Vol] 0.70 10*3/uL Normal <0.87 [facility] Comment on above: Order Comment: Speci men Type: BLOOD SPECIMENOrdering Facility: [facility] Address: [address] [place] [address] Performed By: #### 5 7021-8 ####[facility] LABORATORYCLIA [id number] [address] [place] Monocytes/100 WBC (Bld) 6.1 % Normal [place] Comment on above: Order Comment: Speci men Type: BLOOD SPECIMENOrdering Facility: [facility] Address: [address] [place] [address] Performed By: #### 5 7021-8 ####[facility] LABORATORYCLIA [id number] [place] [address] [place] Neutrophils (Bld) [#/Vol] 9.32 10*3/uL High 1.45-7.50 [facility] Comment on above: Order Comment: Speci men Type: BLOOD SPECIMENOrdering Facility: [facility] Address: [address] [place] [address] Performed By: #### 5 7021-8 ####[facility] LABORATORYCLIA [id number] [address] [place] Neutrophils/100 WBC (Bld) 81.4 % Normal [facility] Comment on above: Order Comment: Speci men Type: BLOOD SPECIMENOrdering Facility: [facility] Address: [address] [place] [address] Performed By: #### 5 7021-8 ####[facility] LABORATORYCLIA [id number] [place] [address] [place] Nucleated RBC (Bld) [#/Vol] 10*3/uL Normal <0.01 [facility] Comment on above: Order Comment: Speci men Type: BLOOD SPECIMENOrdering Facility: [facility] Address: [address] [place] [address] Performed By: #### 5 7021-8 ####[facility] LABORATORYCLIA [id number] [place] [address] [facility] [place] Nucleated RBC/100 WBC (Bld) [Ratio] 0.0 /100 WBC Normal [facility] Comment on above: Order Comment: Speci men Type: BLOOD SPECIMENOrdering Facility: [facility] Address: [facility] [place] [address] Performed By: #### 5 7021-8 ####[facility] LABORATORYCLIA [id number] [place] [address] [place] Platelet mean volume (Bld) [Entitic vol] 8.1 fL Low 9.0-12.7 [facility] Comment on above: Order Comment: Speci men Type: BLOOD SPECIMENOrdering Facility: [facility] Address: [facility] [place] [address] Performed By: #### 5 7021-8 ####V[facility] LABORATORYCLIA [id number] [place] [address] [place] Platelets (Bld) [#/Vol] 579 10*3/uL High 150-400 [facility] Comment on above: Order Comment: Speci men Type: BLOOD SPECIMENOrdering Facility: [facility] Address: [facility] [place] [address] Performed By: #### 5 7021-8 ####[facility] LABORATORYCLIA [id number] [place] [address] [place] RBC (Bld) [#/Vol] 2.70 10*6/uL Low 3.90-5.20 [facility] Comment on above: Order Comment: Speci men Type: BLOOD SPECIMENOrdering Facility: [facility] Address: [facility] [place] [address] Performed By: #### 5 7021-8 ####[facility] LABORATORYCLIA [id number] [place] [address] [place] WBC (Bld) [#/Vol] 11.45 10*3/uL High 3.70-11.00 [facility] Comment on above: Order Comment: Speci men Type: BLOOD SPECIMENOrdering Facility: [facility] Address: [address] [place], [place] [address] [address] Performed By: #### 5 7021-8 ####VILL[facility] LABORATORYCLIA [id number] [address] [place] CONSULT PROGon 12-10-2024 CONSULT PROG Normal [facility] CONSULT PROG Normal [facility] CONSULT PROG Normal [facility] CONSULT PROG Normal [facility] OPERATIVE NOon 12-10-2024 OPERATIVE NO Normal [facility] SURGICAL PATHOLOGYon 025 CASE REPORT [facility] Comment on above: Order Comment: Speci men Type: TISSUE SPECIMENOrdering Facility: [facility] Address: [address] [place] [address] Result Comment: Surg ical Pathology Report Case: [id number] Provider: José Miguel Morgan MD Collected: 12/10/2024 07:37 AMOrdering Location: [facility] End[facility] Received: 12/10/2024 08:27 AMPathologist: Jesús Jeff MDSpecimens: A) - Small Bowel, Duodenum, Biopsy, sprue B) - Stomach, Biopsy, hp C) - Esophagus, Biopsy, at 30 cm r/o krystina Performed By: #### S ####[facility] LABCLIA [id number] [address] LABCLIA [id number] [address] FINAL DIAGNOSIS [facility] Comment on above: Order Comment: Speci men Type: TISSUE SPECIMENOrdering Facility: [facility] Address: [address] [place] [address] Result Comment: A. D uodenum, biopsy:- Focal gastric surface metaplasia associated with mild regenerative epithelial changes.- No other significant pathologic alteration.B. Stomach, biopsy:- Reactive gastropathy.- No morphologic evidence of Helicobacter pylori.C. Esophagus at 30 cm, biopsy:- Fragments of of unremarkable squamous mucosa.- No evidence of Krystina.JRG/mm/12/11/2024 Performed By: #### S ####[facility] LABCLIA [id number] [address] LABCLIA [id number] [address] [address] FINAL PERFORMING LAB [facility] Comment on above: Order Comment: Speci men Type: TISSUE SPECIMENOrdering Facility: [facility] Address: [address] [place] [address] Result Comment: Diag nostic interpretation performed at: [facility], [address] [place] [address], [place] [address] CLIA# [id number] Director: Manfred Diallo MD Performed By: #### S ####[facility] LABCLIA [id number] [address] LABCLIA [id number] [address] GROSS DESCRIPTION [facility] Comment on above: Order Comment: Speci men Type: TISSUE SPECIMENOrdering Facility: [facility] Address: [address] [place] [address] Result Comment: A. S mall Bowel, Duodenum, [...] submitted in one cassette.Gross examination performed at [facility], [address] [place], [place] [address]AMS December 10, 2024 10:50 AM Performed By: #### S ####[facility] LABCLIA [id number] [place] [id number] [facility] LABCLIA [id number] [address] [place] THERAPY NTon 12-10-2024 THERAPY NT [facility] THERAPY [facility] Basic metabolic 2000 panelon 12-09-2024 Anion gap [Moles/Vol] 10 mmol/L Normal 8-15 [facility] Comment on above: Order Comment: Speci men Type: BLOOD SPECIMENOrdering Facility: [facility] Address: [address] [place] [address] Performed By: #### 2 4321-2, 25477-0, 2275- ####V[facility] LABORATORYCLIA [id number] [place] [address] [place] Calcium [Mass/Vol] 9.3 mg/dL Normal 8.5-10.2 [facility] Comment on above: Order Comment: Speci men Type: BLOOD SPECIMENOrdering Facility: [facility] Address: [facility] [place] [address] Performed By: #### 2 4321-2, 91750-8, 2276-02 ####[facility] LABORATORYCLIA [id number] [place] [address] [place] Chloride [Moles/Vol] 100 mmol/L Normal 98-107 [facility] Comment on above: Order Comment: Speci men Type: BLOOD SPECIMENOrdering Facility: [facility] Address: [facility] [place] [address] Performed By: #### 2 4321-2, 06228-3, 2276-02 ####V[facility] LABORATORYCLIA [id number] [place] [address] [place] CO2 [Moles/Vol] 26 mmol/L Normal 22-30 [facility] Comment on above: Order Comment: Speci men Type: BLOOD SPECIMENOrdering Facility: [facility] Address: [address] [place] [address] Performed By: #### 2 4321-2, 06265-5, 2275- ####[facility] LABORATORYCLIA [id number] [place] [address] [place] Creatinine [Mass/Vol] 0.80 mg/dL Normal 0.58-0.96 [facility] Comment on above: Order Comment: Speci men Type: BLOOD SPECIMENOrdering Facility: [facility] Address: [facility] [place] [address] Performed By: #### 2 4321-2, 16968-2, 6-4 ####[facility] LABORATORYCLIA [id number] [address] Creatinine and Glomerular filtration rate.predicted panel (S/P/Bld) 71 mL/min/1.73m??? Normal >=60 [facility] Comment on above: Order Comment: Fan meade Type: BLOOD SPECIMENOrdering Facility: [facility] Address: [address] [place] [address] Result Comment: Hilda mated Glomerular Filtration Rate [...] actual GFR. Performed By: #### 2 4321-2, 48826-9, 2275-4 ####[facility] LABORATORYCLIA [id number] [address] Glucose [Mass/Vol] 151 mg/dL High 74-99 [facility] Comment on above: Order Comment: Fan meade Type: BLOOD SPECIMENOrdering Facility: [facility] Address: [address] [place] [address] Result Comment: The [place] Diabetes Association (ADA) provides guidance for cutoff [...] Standards of Medical Care in Diabetes 2016, [place] [employer] Association. Diabetes Care. 2016.39(Suppl 1). Performed By: #### 2 4321-2, 55320-1, 6-4 ####[facility] LABORATORYCLIA [id number] [address] [place] Potassium [Moles/Vol] 4.5 mmol/L Normal 3.7-5.1 [facility] Comment on above: Order Comment: Speci men Type: BLOOD SPECIMENOrdering Facility: [facility] Address: [address] [place] [address] Performed By: #### 2 4321-2, 70977-5, 6-4 ####[facility] LABORATORYCLIA [id number] [address] STATES OF [facility] Sodium [Moles/Vol] 136 mmol/L Normal 136-144 [facility] Comment on above: Order Comment: Speci men Type: BLOOD SPECIMENOrdering Facility: [facility] Address: [address] [place] [address] Performed By: #### 2 4321-2, 19349-5, 6-4 ####[facility] LABORATORYCLIA [id number] [address] STATES OF [facility] Urea nitrogen [Mass/Vol] 43 mg/dL High 7-21 [facility] Comment on above: Order Comment: Speci men Type: BLOOD SPECIMENOrdering Facility: [facility] Address: [address] [place] [address] Performed By: #### 2 4321-2, 67616-0, 6-4 ####[facility] LABORATORYCLIA [id number] [address] OF [facility] CBC W Auto Differential pane l (Bld)on 12-09-2024 Basophils (Bld) [#/Vol] 10*3/uL Normal <0.11 [place] Comment on above: Order Comment: Speci men Type: BLOOD SPECIMENOrdering Facility: [facility] Address: [address] [place] [address] Performed By: #### 5 7021-8 ####[facility] LABORATORYCLIA [id number] [address] Basophils/100 WBC (Bld) 0.1 % Normal [place] Comment on above: Order Comment: Speci men Type: BLOOD SPECIMENOrdering Facility: [facility] Address: [address] [place] [address] Performed By: #### 5 7021-8 ####[facility] LABORATORYCLIA [id number] [address] Differential cell count method Nom (Bld) Auto Normal [facility] Comment on above: Order Comment: Speci men Type: BLOOD SPECIMENOrdering Facility: [facility] Address: [address] [place] [address] Performed By: #### 5 7021-8 ####[facility] LABORATORYCLIA [id number] [place] [address] [place] Eosinophils (Bld) [#/Vol] 0.15 10*3/uL Normal <0.46 [facility] Comment on above: Order Comment: Speci men Type: BLOOD SPECIMENOrdering Facility: [facility] Address: [address] [place] [address] Performed By: #### 5 7021-8 ####[facility] LABORATORYCLIA [id number] [address] [place] Eosinophils/100 WBC (Bld) 1.4 % Normal [facility] Comment on above: Order Comment: Speci men Type: BLOOD SPECIMENOrdering Facility: [facility] Address: [facility] [place] [address] Performed By: #### 5 7021-8 ####[facility] LABORATORYCLIA [id number] [address] [place] Erythrocyte distribution width (RBC) [Ratio] 16.4 % High 11.5-15.0 [facility] Comment on above: Order Comment: Speci men Type: BLOOD SPECIMENOrdering Facility: [facility] Address: [address] [place] [address] Performed By: #### 5 7021-8 ####[facility] LABORATORYCLIA [id number] [address] [place] Hematocrit (Bld) [Volume fraction] 24.0 % Low 36.0-46.0 [facility] Comment on above: Order Comment: Speci men Type: BLOOD SPECIMENOrdering Facility: [facility] Address: [address] [place] [address] Performed By: #### 5 7021-8 ####[facility] LABORATORYCLIA [id number] [place] [address] [place] Hemoglobin (Bld) [Mass/Vol] 7.6 g/dL Low 11.5-15.5 [facility] Comment on above: Order Comment: Speci men Type: BLOOD SPECIMENOrdering Facility: [facility] Address: [address] [place] [address] Performed By: #### 5 7021-8 ####[facility] LABORATORYCLIA [id number] [place] [address] [place] Immature granulocytes (Bld) [#/Vol] 0.23 10*3/uL High <0.10 [facility] Comment on above: Order Comment: Speci men Type: BLOOD SPECIMENOrdering Facility: [facility] Address: [address] [place] [address] Performed By: #### 5 7021-8 ####[facility] LABORATORYCLIA [id number] [place] [address] [place] Immature granulocytes/100 WBC (Bld) 2.1 % Normal [facility] Comment on above: Order Comment: Speci men Type: BLOOD SPECIMENOrdering Facility: [facility] Address: [address] [place] [address] Performed By: #### 5 7021-8 ####[facility] LABORATORYCLIA [id number] [place] [address] [place] Lymphocytes (Bld) [#/Vol] 1.43 10*3/uL Normal 1.00-4.00 [facility] Comment on above: Order Comment: Speci men Type: BLOOD SPECIMENOrdering Facility: [facility] Address: [address] [place] [address] Performed By: #### 5 7021-8 ####[facility] LABORATORYCLIA [id number] [address] [place] Lymphocytes/100 WBC (Bld) 13.3 % Normal [facility] Comment on above: Order Comment: Speci men Type: BLOOD SPECIMENOrdering Facility: [facility] Address: [address] [place] [address] Performed By: #### 5 7021-8 ####[facility] LABORATORYCLIA [id number] [address] MCH (RBC) [Entitic mass] 27.9 pg Normal 26.0-34.0 [facility] Comment on above: Order Comment: Speci men Type: BLOOD SPECIMENOrdering Facility: [facility] Address: [address] [place] [address] Performed By: #### 5 7021-8 ####[facility] LABORATORYCLIA [id number] [address] MCHC (RBC) [Mass/Vol] 31.7 g/dL Normal 30.5-36.0 [facility] Comment on above: Order Comment: Speci men Type: BLOOD SPECIMENOrdering Facility: [facility] Address: [address] [place] [address] Performed By: #### 5 7021-8 ####[facility] LABORATORYCLIA [id number] [address] MCV (RBC) [Entitic vol] 88.2 fL Normal 80.0-100.0 [place] Comment on above: Order Comment: Speci men Type: BLOOD SPECIMENOrdering Facility: [facility] Address: [address] [place] [address] Performed By: #### 5 7021-8 ####[facility] LABORATORYCLIA [id number] [address] Monocytes (Bld) [#/Vol] 0.62 10*3/uL Normal <0.87 [facility] Comment on above: Order Comment: Speci men Type: BLOOD SPECIMENOrdering Facility: [facility] Address: [address] [place] [address] Performed By: #### 5 7021-8 ####[facility] LABORATORYCLIA [id number] [address] Monocytes/100 WBC (Bld) 5.8 % Normal [place] Comment on above: Order Comment: Speci men Type: BLOOD SPECIMENOrdering Facility: [facility] Address: [address] [place] [address] Performed By: #### 5 7021-8 ####[facility] LABORATORYCLIA [id number] [place] [address] [place] Neutrophils (Bld) [#/Vol] 8.31 10*3/uL High 1.45-7.50 [facility] Comment on above: Order Comment: Speci men Type: BLOOD SPECIMENOrdering Facility: [facility] Address: [address] [place] [address] Performed By: #### 5 7021-8 ####[facility] LABORATORYCLIA [id number] [place] [address] [place] Neutrophils/100 WBC (Bld) 77.3 % Normal [facility] Comment on above: Order Comment: Speci men Type: BLOOD SPECIMENOrdering Facility: [facility] Address: [address] [place] [address] Performed By: #### 5 7021-8 ####[facility] LABORATORYCLIA [id number] [place] [address] [place] Nucleated RBC (Bld) [#/Vol] 10*3/uL Normal <0.01 [facility] Comment on above: Order Comment: Speci men Type: BLOOD SPECIMENOrdering Facility: [facility] Address: [address] [place] [address] Performed By: #### 5 7021-8 ####[facility] LABORATORYCLIA [id number] [place] [address] [place] Nucleated RBC/100 WBC (Bld) [Ratio] 0.0 /100 WBC Normal [facility] Comment on above: Order Comment: Speci men Type: BLOOD SPECIMENOrdering Facility: [facility] Address: [address] [place] [address] Performed By: #### 5 7021-8 ####[facility] LABORATORYCLIA [id number] [place] [address] [place] Platelet mean volume (Bld) [Entitic vol] 8.3 fL Low 9.0-12.7 [facility] Comment on above: Order Comment: Speci men Type: BLOOD SPECIMENOrdering Facility: [facility] Address: [facility] [place] [address] Performed By: #### 5 7021-8 ####[facility] LABORATORYCLIA [id number] [address] [place] Platelets (Bld) [#/Vol] 577 10*3/uL High 150-400 [facility] Comment on above: Order Comment: Speci men Type: BLOOD SPECIMENOrdering Facility: [facility] Address: [address] [place] [address] Performed By: #### 5 7021-8 ####[facility] LABORATORYCLIA [id number] [place] [address] [facility] [place] RBC (Bld) [#/Vol] 2.72 10*6/uL Low 3.90-5.20 [facility] Comment on above: Order Comment: Speci men Type: BLOOD SPECIMENOrdering Facility: [facility] Address: [address] [place] [address] Performed By: #### 5 7021-8 ####[facility]ORATORYCLIA [id number] [address] [place] WBC (Bld) [#/Vol] 10.75 10*3/uL Normal 3.70-11.00 [facility] Comment on above: Order Comment: Speci men Type: BLOOD SPECIMENOrdering Facility: [facility] Address: [address] [place] [address] Performed By: #### 5 7021-8 ####[facility] LABORATORYCLIA [id number] [address] CELIAC SCREENon 12-09-2024 GLIAD DEAMIDATED IGA QUAL Negative Normal Negative, Test not Indicated [facility] Comment on above: Order Comment: Speci men Type: BLOOD SPECIMENOrdering Facility: [facility] Address: [address] [place] [address] Result Comment: This is used as an aid in diagnosis of celiac disease. Clinical correlation is required.The following results were obtained with an [employer]ANT[employer] Lite Gliadin IgA JOE Gliadin. Gliadin IgA values obtained with different manufacturers' assay methods may not be used interchangeably. The magnitude of the reported IgA levels cannot be correlated to an endpoint titer. Performed By: #### L [id number] ####[facility] LABCLIA [id number] [address] [place] Gliadin peptide IgA Qn (S) 2 Units Normal <20 [facility] Comment on above: Order Comment: Fan meade Type: BLOOD SPECIMENOrdering Facility: [facility] Address: [address] [place] [address] Performed By: #### L [id number] ####[facility] LABCLIA [id number] [address] [place] INTERPRETATION No serological evidence of celiac disease, however, if celiac disease is clinically suspected and patient is not on gluten-free diet, histological diagnosis may be considered. HLA testing may help with risk assessment. Normal [facility] Comment on above: Order Comment: Fan [facility] Type: BLOOD SPECIMENOrdering Facility: [facility] Address: [address] [place] [address] Performed By: #### L [id number] ####[facility] LABCLIA [id number] [address] TRANSGLUTAMINASE IGA ABS INTERPRETATION Negative Normal Negative [facility] Comment on above: Order Comment: Fan meade Type: BLOOD SPECIMENOrdering Facility: [facility] Address: [address] [place] [address] Result Comment: The following results were obtained with [employer] Lite R h-tTG IgA JOE.???R h-tTG IgA values obtained with different manufacturers' assay methods may not be used interchangeably. The magnitude of the reported IgA levels cannot be corelated to an endpoint???concentration.This is used as an aid in diagnosis of celiac disease. Clinical correlation is required. Performed By: #### L [id number] ####[facility] LABCLIA [id number] [address] [place] tTG IgA Qn (S) <2 Normal <4 [facility] Comment on above: Order Comment: Speci men Type: BLOOD SPECIMENOrdering Facility: [facility] Address: [address] [place], [place] [id number] Performed By: #### L [id number] ####[facility] [id number] [place] [id number] [place] CONSULT PROGon 12-09-2024 CONSULT PROG Normal [facility] CONSULT PROG Normal [facility] CONSULT PROG Normal [facility] Ferritin SerPl-mCncon 2024 Ferritin [Mass/Vol] 1588.0 ng/mL High 14.7-205.1 [facility] Comment on above: Order Comment: Speci men Type: BLOOD SPECIMENOrdering Facility: [facility] Address: [address] [place] [address] Performed By: #### 2 4321-2, 54861-4, 2276-4 ####[facility]ATORYCLIA [id number] [place] [address] [place] Haptoglob SerPl-mCncon 12-09 Haptoglobin [Mass/Vol] 483 mg/dL High 31-238 [facility] Comment on above: Order Comment: Speci men Type: BLOOD SPECIMENOrdering Facility: [facility] Address: [address] [place] [address] Performed By: #### 4 542-7 ####[facility] LABCLIA [id number] [place] [address] [place] IgA SerPl-mCncon 12-09-2024 IgA [Mass/Vol] 166 mg/dL Normal 70-400 [facility] Comment on above: Order Comment: Speci men Type: BLOOD SPECIMENOrdering Facility: [facility] Address: [address] [place] [address] Performed By: #### 2 458-8 ####[facility] LABCLIA [id number] [place] [id number] [place] Iron and Iron binding capaci ty panelon 12-09-2024 Iron [Mass/Vol] 91 ug/dL Normal 41-186 [facility] Comment on above: Order Comment: Speci men Type: BLOOD SPECIMENOrdering Facility: [facility] Address: [address] [place] [address] Performed By: #### 2 4321-2, 06787-9, 6-4 ####[facility]ATORYCLIA [id number] [address] Iron binding capacity [Mass/Vol] 223 ug/dL Low 232-386 [facility] Comment on above: Order Comment: Speci men Type: BLOOD SPECIMENOrdering Facility: [facility] Address: [address] [place] [address] Performed By: #### 2 4321-2, 60270-8, 2276-02 ####[facility]ORATORYCLIA [id number] [address] [place] [facility] Iron/TIBC [Molar ratio] 40.8 % Normal 15.0-57.0 [place] Comment on above: Order Comment: Speci men Type: BLOOD SPECIMENOrdering Facility: [facility] Address: [address] [place] [address] Performed By: #### 2 4321-2, 38261-3, 2276-02 ####[facility]ORATORYCLIA [id number] [address] STATES OF [facility] CBC W Auto Differential pane l (Bld)on 12-08-2024 Basophils (Bld) [#/Vol] 0.03 10*3/uL Normal <0.11 [facility] Comment on above: Order Comment: Speci men Type: BLOOD SPECIMENOrdering Facility: [facility] Address: [address] [place] [address] Performed By: #### 5 7021-8 ####[facility]ORATORYCLIA [id number] [address] Basophils/100 WBC (Bld) 0.3 % Normal [place] Comment on above: Order Comment: Speci men Type: BLOOD SPECIMENOrdering Facility: [facility] Address: [address] [place] [address] Performed By: #### 5 7021-8 ####[facility]ORATORYCLIA [id number] [address] [place] Differential cell count method Nom (Bld) Auto Normal [facility] Comment on above: Order Comment: Speci men Type: BLOOD SPECIMENOrdering Facility: [facility] Address: [address] [place] [address] Performed By: #### 5 7021-8 ####[facility]ORATORYCLIA [id number] [place] [address] [place] Eosinophils (Bld) [#/Vol] 0.13 10*3/uL Normal <0.46 [facility] Comment on above: Order Comment: Speci men Type: BLOOD SPECIMENOrdering Facility: [facility] Address: [address] [place] [address] Performed By: #### 5 7021-8 ####[facility]ORATORYCLIA [id number] [address] [place] Eosinophils/100 WBC (Bld) 1.1 % Normal [facility] Comment on above: Order Comment: Speci men Type: BLOOD SPECIMENOrdering Facility: [facility] Address: [address] [place] [address] Performed By: #### 5 7021-8 ####[facility]ORATORYCLIA [id number] [address] [place] Erythrocyte distribution width (RBC) [Ratio] 16.0 % High 11.5-15.0 [facility] Comment on above: Order Comment: Speci men Type: BLOOD SPECIMENOrdering Facility: [facility] Address: [address] [place] [address] Performed By: #### 5 7021-8 ####[facility]ORATORYCLIA [id number] [address] [place] Hematocrit (Bld) [Volume fraction] 24.0 % Low 36.0-46.0 [facility] Comment on above: Order Comment: Speci men Type: BLOOD SPECIMENOrdering Facility: [facility] Address: [address] [place] [address] Performed By: #### 5 7021-8 ####[facility] LABORATORYCLIA [id number] [place] [address] [place] Hemoglobin (Bld) [Mass/Vol] 7.7 g/dL Low 11.5-15.5 [facility] Comment on above: Order Comment: Speci men Type: BLOOD SPECIMENOrdering Facility: [facility] Address: [address] [place] [address] Performed By: #### 5 7021-8 ####[facility]ORATORYCLIA [id number] [place] [address] [place] Immature granulocytes (Bld) [#/Vol] 0.19 10*3/uL High <0.10 [facility] Comment on above: Order Comment: Speci men Type: BLOOD SPECIMENOrdering Facility: [facility] Address: [address] [place] [address] Performed By: #### 5 7021-8 ####[facility]ORATORYCLIA [id number] [place] [address] [place] Immature granulocytes/100 WBC (Bld) 1.6 % Normal [facility] Comment on above: Order Comment: Speci men Type: BLOOD SPECIMENOrdering Facility: [facility] Address: [address] [place] [address] Performed By: #### 5 7021-8 ####[facility]ORATORYCLIA [id number] [place] [address] [place] Lymphocytes (Bld) [#/Vol] 1.38 10*3/uL Normal 1.00-4.00 [facility] Comment on above: Order Comment: Speci men Type: BLOOD SPECIMENOrdering Facility: [facility] Address: [address] [place] [address] Performed By: #### 5 7021-8 ####[facility]ORATORYCLIA [id number] [address] [place] Lymphocytes/100 WBC (Bld) 11.9 % Normal [facility] Comment on above: Order Comment: Speci men Type: BLOOD SPECIMENOrdering Facility: [facility] Address: [address] [place] [address] Performed By: #### 5 7021-8 ####[facility]ORATORYCLIA [id number] [address] MCH (RBC) [Entitic mass] 28.2 pg Normal 26.0-34.0 [facility] Comment on above: Order Comment: Speci men Type: BLOOD SPECIMENOrdering Facility: [facility] Address: [address] [place] [address] Performed By: #### 5 7021-8 ####[facility]ORATORYCLIA [id number] [address] MCHC (RBC) [Mass/Vol] 32.1 g/dL Normal 30.5-36.0 [facility] Comment on above: Order Comment: Speci men Type: BLOOD SPECIMENOrdering Facility: [facility] Address: [address] [place] [address] Performed By: #### 5 7021-8 ####[facility]ORATORYCLIA [id number] [address] MCV (RBC) [Entitic vol] 87.9 fL Normal 80.0-100.0 [place] Comment on above: Order Comment: Speci men Type: BLOOD SPECIMENOrdering Facility: [facility] Address: [address] [place] [address] Performed By: #### 5 7021-8 ####[facility]ORATORYCLIA [id number] [address] Monocytes (Bld) [#/Vol] 0.77 10*3/uL Normal <0.87 [facility] Comment on above: Order Comment: Speci men Type: BLOOD SPECIMENOrdering Facility: [facility] Address: [address] [place] [address] Performed By: #### 5 7021-8 ####[facility]ORATORYCLIA [id number] [address] Monocytes/100 WBC (Bld) 6.6 % Normal [place] Comment on above: Order Comment: Speci men Type: BLOOD SPECIMENOrdering Facility: [facility] Address: [address] [place] [address] Performed By: #### 5 7021-8 ####[facility]ORATORYCLIA [id number] [place] [address] [place] Neutrophils (Bld) [#/Vol] 9.10 10*3/uL High 1.45-7.50 [facility] Comment on above: Order Comment: Speci men Type: BLOOD SPECIMENOrdering Facility: [facility] Address: [address] [place] [address] Performed By: #### 5 7021-8 ####[facility]ORATORYCLIA [id number] [place] [address] [place] Neutrophils/100 WBC (Bld) 78.5 % Normal [facility] Comment on above: Order Comment: Speci men Type: BLOOD SPECIMENOrdering Facility: [facility] Address: [address] [place] [address] Performed By: #### 5 7021-8 ####[facility]ORATORYCLIA [id number] [place] [address] [place] Nucleated RBC (Bld) [#/Vol] 10*3/uL Normal <0.01 [facility] Comment on above: Order Comment: Speci men Type: BLOOD SPECIMENOrdering Facility: [facility] Address: [address] [place] [address] Performed By: #### 5 7021-8 ####[facility] LABORATORYCLIA [id number] [place] [address] [place] Nucleated RBC/100 WBC (Bld) [Ratio] 0.0 /100 WBC Normal [facility] Comment on above: Order Comment: Speci men Type: BLOOD SPECIMENOrdering Facility: [facility] Address: [address] [place] [address] Performed By: #### 5 7021-8 ####[facility]ORATORYCLIA [id number] [place] [address] [place] Platelet mean volume (Bld) [Entitic vol] 8.4 fL Low 9.0-12.7 [facility] Comment on above: Order Comment: Speci men Type: BLOOD SPECIMENOrdering Facility: [facility] Address: [address] [place] [address] Performed By: #### 5 7021-8 ####[facility]ORATORYCLIA [id number] [place] [id number] [facility] [place] Platelets (Bld) [#/Vol] 577 10*3/uL High 150-400 [facility] Comment on above: Order Comment: Speci men Type: BLOOD SPECIMENOrdering Facility: [facility] Address: [address] [place] [address] Performed By: #### 5 7021-8 ####[facility]ORATORYCLIA [id number] [place] [address] [place] [facility] [place] RBC (Bld) [#/Vol] 2.73 10*6/uL Low 3.90-5.20 [facility] Comment on above: Order Comment: Speci men Type: BLOOD SPECIMENOrdering Facility: [facility] Address: [address] [place] [address] Performed By: #### 5 7021-8 ####[facility]ATORYCLIA [id number] [address] WBC (Bld) [#/Vol] 11.60 10*3/uL High 3.70-11.00 [facility] Comment on above: Order Comment: Speci men Type: BLOOD SPECIMENOrdering Facility: [facility] Address: [address] [place] [address] Performed By: #### 5 7021-8 ####[facility]ORATORYCLIA [id number] [address] [place] CONSULT PROGon 12-08-2024 CONSULT PROG Normal [facility] CONSULT PROG Normal [facility] CONSULT PROG Normal [facility] Comprehensive metabolic 2000 panelon 12-08-2024 Albumin [Mass/Vol] 2.6 g/dL Low 3.9-4.9 [facility] Comment on above: Order Comment: Speci men Type: BLOOD SPECIMENOrdering Facility: [facility] Address: [address] [place] [address] Performed By: #### 2 4323-8, 63422-3 ####[facility]ATORYCLIA [id number] [address] [place] [facility] ALP [Catalytic activity/Vol] 106 U/L Normal 34-123 [facility] Comment on above: Order Comment: Speci men Type: BLOOD SPECIMENOrdering Facility: [facility] Address: [address] [place] [address] Performed By: #### 2 4323-8, ####[facility]ORATORYCLIA [id number] [place] [address] [place] ALT [Catalytic activity/Vol] U/L Low 7-38 [facility] Comment on above: Order Comment: Speci men Type: BLOOD SPECIMENOrdering Facility: [facility] Address: [address] [facility] [place] [address] Performed By: #### 2 432-8, ####[facility]ORATORYCLIA [id number] [address] [place] [facility] Anion gap [Moles/Vol] 8 mmol/L Normal 8-15 [facility] Comment on above: Order Comment: Speci men Type: BLOOD SPECIMENOrdering Facility: [facility] Address: [address] [place] [address] Performed By: #### 2 4323-8, ####[facility]ORATORYCLIA [id number] [address] STATES OF [facility] AST [Catalytic activity/Vol] 20 U/L Normal 13-35 [facility] Comment on above: Order Comment: Speci men Type: BLOOD SPECIMENOrdering Facility: [facility] Address: [address] [place] [address] Performed By: #### 2 4323-8, ####[facility]ORATORYCLIA [id number] [place] [address] [place] Bilirubin [Mass/Vol] mg/dL Low 0.2-1.3 [facility] Comment on above: Order Comment: Speci men Type: BLOOD SPECIMENOrdering Facility: [facility] Address: [address] [place] [id number] Performed By: #### 2 4323-8, ####[facility]ORATORYCLIA [id number] [place] [address] [place] Calcium [Mass/Vol] 9.0 mg/dL Normal 8.5-10.2 [facility] Comment on above: Order Comment: Speci men Type: BLOOD SPECIMENOrdering Facility: [facility] Address: [address] [place] [address] Performed By: #### 2 4323-8, ####[facility]ORATORYCLIA [id number] [place] [address] [place] Chloride [Moles/Vol] 99 mmol/L Normal 98-107 [facility] Comment on above: Order Comment: Speci men Type: BLOOD SPECIMENOrdering Facility: [facility] Address: [address] [place] [address] Performed By: #### 2 4323-8, ####[facility]ORATORYCLIA [id number] [place] [address] [place] CO2 [Moles/Vol] 27 mmol/L Normal 22-30 [facility] Comment on above: Order Comment: Speci men Type: BLOOD SPECIMENOrdering Facility: [facility] Address: [address] [place] [address] Performed By: #### 2 4323-8, ####[facility]ORATORYCLIA [id number] [place] [address] [place] Creatinine [Mass/Vol] 0.86 mg/dL Normal 0.58-0.96 [facility] Comment on above: Order Comment: Speci men Type: BLOOD SPECIMENOrdering Facility: [facility] Address: [address] [place] [address] Performed By: #### 2 4323-8, ####[facility] LABORATORYCLIA [id number] [place] [id number] [place] [facility] [place] Creatinine and Glomerular filtration rate.predicted panel (S/P/Bld) 65 mL/min/1.73m??? Normal >=60 [facility] Comment on above: Order Comment: Speci men Type: BLOOD SPECIMENOrdering Facility: [facility] Address: [address] [place] [address] Result Comment: Hilda mated Glomerular Filtration Rate [...] actual GFR. Performed By: #### 2 4323-8, ####[facility]ORATORYCLIA [id number] [place] [address] [place] Glucose [Mass/Vol] 170 mg/dL High 74-99 [facility] Comment on above: Order Comment: Fan meade Type: BLOOD SPECIMENOrdering Facility: [facility] Address: [address] [place] [address] Result Comment: The [place] Diabetes Association (ADA) provides guidance for cutoff [...] Standards of Medical Care in Diabetes 2016, [place] [employer] Association. Diabetes Care. 2016.39(Suppl 1). Performed By: #### 2 432-8, ####[facility]ORATORYCLIA [id number] [place] [address] [place] Potassium [Moles/Vol] 4.5 mmol/L Normal 3.7-5.1 [facility] Comment on above: Order Comment: Fan meade Type: BLOOD SPECIMENOrdering Facility: [facility] Address: [address] [place] [id number] Performed By: #### 2 4323-8, ####[facility]ORATORYCLIA [id number] [place] [address] [place] Protein [Mass/Vol] 5.3 g/dL Low 6.3-8.0 [facility] Comment on above: Order Comment: Speci men Type: BLOOD SPECIMENOrdering Facility: [facility] Address: [address] [place] [address] Performed By: #### 2 4323-8, 38796-1 ####[facility] LABORATORYCLIA [id number] [place] [address] [place] Sodium [Moles/Vol] 134 mmol/L Low 136-144 [facility] Comment on above: Order Comment: Speci men Type: BLOOD SPECIMENOrdering Facility: [facility] Address: [address] [place] [address] Performed By: #### 2 3-8, ####[facility] LABORATORYCLIA [id number] [address] [place] Urea nitrogen [Mass/Vol] 45 mg/dL High 7-21 [facility] Comment on above: Order Comment: Speci men Type: BLOOD SPECIMENOrdering Facility: [facility] Address: [address] [place] [address] Performed By: #### 2 4322-8, ####[facility] LABORATORYCLIA [id number] [address] Magnesium SerPl-mCncon 12-08 Magnesium [Mass/Vol] 1.7 mg/dL Normal 1.7-2.3 [facility] Comment on above: Order Comment: Speci men Type: BLOOD SPECIMENOrdering Facility: [facility] Address: [address] [place] [address] Performed By: #### 2 4323-8, ####[facility] LABORATORYCLIA [id number] [place] [id number] [place] OCCULT BLD EXAM-DIAGon 12-08 OCCULT BLD EXAM-DIAG Negative Normal [facility] Comment on above: Performed By: #### O BDX ####[facility] LABORATORYCLIA [id number] [place] [id number] [place] ALLIED HEALTHon 12-07-2024 [facility] CASE MANAGEMon 12-07-2024 CASE MANAGEM [facility] CBC W Auto Differential pane l (Bld)on 12-07-2024 Basophils (Bld) [#/Vol] 10*3/uL Normal <0.11 [place] Comment on above: Order Comment: Speci men Type: BLOOD SPECIMENOrdering Facility: [facility] Address: [address] [place] [address] Performed By: #### 5 7021-8 ####[facility] LABORATORYCLIA [id number] [place] [address] [place] Basophils/100 WBC (Bld) 0.2 % Normal [place] Comment on above: Order Comment: Speci men Type: BLOOD SPECIMENOrdering Facility: [facility] Address: [address] [place] [address] Performed By: #### 5 7021-8 ####[facility] LABORATORYCLIA [id number] [place] [address] [place] Differential cell count method Nom (Bld) Auto [facility] Comment on above: Order Comment: Speci men Type: BLOOD SPECIMENOrdering Facility: [facility] Address: [address] [place] [address] Performed By: #### 5 7021-8 ####[facility] LABORATORYCLIA [id number] [place] [address] [place] Eosinophils (Bld) [#/Vol] 0.09 10*3/uL Normal <0.46 [facility] Comment on above: Order Comment: Speci men Type: BLOOD SPECIMENOrdering Facility: [facility] Address: [address] [place] [address] Performed By: #### 5 7021-8 ####[facility] LABORATORYCLIA [id number] [address] [place] Eosinophils/100 WBC (Bld) 0.8 % Normal [facility] Comment on above: Order Comment: Speci men Type: BLOOD SPECIMENOrdering Facility: [facility] Address: [address] [place] [address] Performed By: #### 5 7021-8 ####[facility] LABORATORYCLIA [id number] [place] [address] [place] Erythrocyte distribution width (RBC) [Ratio] 16.0 % High 11.5-15.0 [facility] Comment on above: Order Comment: Speci men Type: BLOOD SPECIMENOrdering Facility: [facility] Address: [address] [place] [address] Performed By: #### 5 7021-8 ####[facility] LABORATORYCLIA [id number] [place] [address] [place] Hematocrit (Bld) [Volume fraction] 25.2 % Low 36.0-46.0 [facility] Comment on above: Order Comment: Speci men Type: BLOOD SPECIMENOrdering Facility: [facility] Address: [address] [place] [address] Performed By: #### 5 7021-8 ####[facility] LABORATORYCLIA [id number] [place] [address] [place] Hemoglobin (Bld) [Mass/Vol] 8.2 g/dL Low 11.5-15.5 [facility] Comment on above: Order Comment: Speci men Type: BLOOD SPECIMENOrdering Facility: [facility] Address: [address] [place] [address] Performed By: #### 5 7021-8 ####[facility] LABORATORYCLIA [id number] [address] [place] Immature granulocytes (Bld) [#/Vol] 0.18 10*3/uL High <0.10 [facility] Comment on above: Order Comment: Speci men Type: BLOOD SPECIMENOrdering Facility: [facility] Address: [address] [place] [address] Performed By: #### 5 7021-8 ####[facility] LABORATORYCLIA [id number] [address] Immature granulocytes/100 WBC (Bld) 1.6 % Normal [facility] Comment on above: Order Comment: Speci men Type: BLOOD SPECIMENOrdering Facility: [facility] Address: [address] [place] [address] Performed By: #### 5 7021-8 ####[facility] LABORATORYCLIA [id number] [address] Lymphocytes (Bld) [#/Vol] 0.83 10*3/uL Low 1.00-4.00 [facility] Comment on above: Order Comment: Speci men Type: BLOOD SPECIMENOrdering Facility: [facility] Address: [address] [place] [address] Performed By: #### 5 7021-8 ####[facility] LABORATORYCLIA [id number] [address] Lymphocytes/100 WBC (Bld) 7.6 % Normal [facility] Comment on above: Order Comment: Speci men Type: BLOOD SPECIMENOrdering Facility: [facility] Address: [address] [place] [address] Performed By: #### 5 7021-8 ####[facility] LABORATORYCLIA [id number] [address] [place] [facility] MCH (RBC) [Entitic mass] 28.5 pg Normal 26.0-34.0 [facility] Comment on above: Order Comment: Speci men Type: BLOOD SPECIMENOrdering Facility: [facility] Address: [address] [place] [address] Performed By: #### 5 7021-8 ####[facility] LABORATORYCLIA [id number] [address] MCHC (RBC) [Mass/Vol] 32.5 g/dL Normal 30.5-36.0 [facility] Comment on above: Order Comment: Speci men Type: BLOOD SPECIMENOrdering Facility: [facility] Address: [address] [place] [address] Performed By: #### 5 7021-8 ####[facility] LABORATORYCLIA [id number] [address] MCV (RBC) [Entitic vol] 87.5 fL Normal 80.0-100.0 [place] Comment on above: Order Comment: Speci men Type: BLOOD SPECIMENOrdering Facility: [facility] Address: [address] [place] [address] Performed By: #### 5 7021-8 ####[facility] LABORATORYCLIA [id number] [place] [address] [place] Monocytes (Bld) [#/Vol] 0.81 10*3/uL Normal <0.87 [facility] Comment on above: Order Comment: Speci men Type: BLOOD SPECIMENOrdering Facility: [facility] Address: [address] [place] [address] Performed By: #### 5 7021-8 ####[facility] LABORATORYCLIA [id number] [place] [address] [place] Monocytes/100 WBC (Bld) 7.4 % Normal [place] Comment on above: Order Comment: Speci men Type: BLOOD SPECIMENOrdering Facility: [facility] Address: [address] [place] [address] Performed By: #### 5 7021-8 ####[facility] LABORATORYCLIA [id number] [place] [address] [place] Neutrophils (Bld) [#/Vol] 8.99 10*3/uL High 1.45-7.50 [facility] Comment on above: Order Comment: Speci men Type: BLOOD SPECIMENOrdering Facility: [facility] Address: [address] [place] [address] Performed By: #### 5 7021-8 ####[facility] LABORATORYCLIA [id number] [address] [place] Neutrophils/100 WBC (Bld) 82.4 % Normal [facility] Comment on above: Order Comment: Speci men Type: BLOOD SPECIMENOrdering Facility: [facility] Address: [address] [place] [address] Performed By: #### 5 7021-8 ####[facility] LABORATORYCLIA [id number] [place] [address] [place] Nucleated RBC (Bld) [#/Vol] 10*3/uL Normal <0.01 [facility] Comment on above: Order Comment: Speci men Type: BLOOD SPECIMENOrdering Facility: [facility] Address: [address] [place], [place] [address] [address] Performed By: #### 5 7021-8 ####[facility] LABORATORYCLIA [id number] [place] [address] [place] Nucleated RBC/100 WBC (Bld) [Ratio] 0.0 /100 WBC Normal [facility] Comment on above: Order Comment: Speci men Type: BLOOD SPECIMENOrdering Facility: [facility] Address: [address] [place] [address] [place] [address] Performed By: #### 5 7021-8 ####[facility] LABORATORYCLIA [id number] [place] [address] [place] Platelet mean volume (Bld) [Entitic vol] 8.3 fL Low 9.0-12.7 [facility] Comment on above: Order Comment: Speci men Type: BLOOD SPECIMENOrdering Facility: [facility] Address: [address] [place] [address] [place] [address] Performed By: #### 5 7021-8 ####[facility] LABORATORYCLIA [id number] [place] [address] [place] Platelets (Bld) [#/Vol] 564 10*3/uL High 150-400 [facility] Comment on above: Order Comment: Speci men Type: BLOOD SPECIMENOrdering Facility: [facility] Address: [facility] [place] [address] Performed By: #### 5 7021-8 ####[facility] LABORATORYCLIA [id number] [place] [address] [place] RBC (Bld) [#/Vol] 2.88 10*6/uL Low 3.90-5.20 [facility] Comment on above: Order Comment: Speci men Type: BLOOD SPECIMENOrdering Facility: [facility] Address: [facility] [place] [address] Performed By: #### 5 7021-8 ####[facility] LABORATORYCLIA [id number] [address] [place] WBC (Bld) [#/Vol] 10.92 10*3/uL Normal 3.70-11.00 [facility] Comment on above: Order Comment: Speci men Type: BLOOD SPECIMENOrdering Facility: [facility] Address: [address] [place] [address] Performed By: #### 5 7021-8 ####[facility] LABORATORYCLIA [id number] [address] [place] CONSULTon 12-07-2024 CONSULT Normal [facility] CONSULT PROGon 12-07-2024 CONSULT PROG Normal [facility] CONSULT PROG Normal [facility] CONSULT PROG Normal [facility] CONSULT PROG Normal [facility] CRP SerPl-mCncon 12-07-2024 CRP [Mass/Vol] 3.6 mg/dL High <0.9 [facility] Comment on above: Order Comment: Speci men Type: BLOOD SPECIMENOrdering Facility: [facility] Address: [address] [place] [address] Performed By: #### 1 988-5, 94785-9, 62108-2, 3040-3 ####[facility] LABORATORYCLIA [id number] [address] [place] Comprehensive metabolic 2000 panelon 12-07-2024 Albumin [Mass/Vol] 2.6 g/dL Low 3.9-4.9 [facility] Comment on above: Order Comment: Speci men Type: BLOOD SPECIMENOrdering Facility: [facility] Address: [address] [place] [address] Performed By: #### 1 988-5, 10607-0, 77726-8, 3040-3 ####[facility] LABORATORYCLIA [id number] [place] [address] [place] ALP [Catalytic activity/Vol] 111 U/L Normal 34-123 [facility] Comment on above: Order Comment: Speci men Type: BLOOD SPECIMENOrdering Facility: [facility] Address: [address] [place] [address] Performed By: #### 1 988-5, 61139-4, 88834-6, 3040-3 ####VILLAR[facility] LABORATORYCLIA [id number] [place] [id number] [facility] [place] ALT [Catalytic activity/Vol] U/L Low 7-38 [facility] Comment on above: Order Comment: Speci men Type: BLOOD SPECIMENOrdering Facility: [facility] Address: [address] [place] [address] Performed By: #### 1 988-5, 49136-8, 32923-0, 0-3 ####[facility] LABORATORYCLIA [id number] [place] [address] [place] Anion gap [Moles/Vol] 9 mmol/L Normal 8-15 [facility] Comment on above: Order Comment: Speci men Type: BLOOD SPECIMENOrdering Facility: [facility] Address: [address] [place] [address] Performed By: #### 1 988-5, 75079-7, 36211-3, 0-3 ####[facility] LABORATORYCLIA [id number] [place] [address] [place] AST [Catalytic activity/Vol] 29 U/L Normal 13-35 [facility] Comment on above: Order Comment: Speci men Type: BLOOD SPECIMENOrdering Facility: [facility] Address: [address] [place] [address] Performed By: #### 1 988-5, 91914-6, 11288-7, 3040-3 ####[facility] LABORATORYCLIA [id number] [place] [address] [place] Bilirubin [Mass/Vol] mg/dL Low 0.2-1.3 [facility] Comment on above: Order Comment: Speci men Type: BLOOD SPECIMENOrdering Facility: [facility] Address: [address] [place] [address] Performed By: #### 1 988-5, 08973-2, 74015-6, 3040-3 ####[facility] LABORATORYCLIA [id number] [address] [place] Calcium [Mass/Vol] 9.3 mg/dL Normal 8.5-10.2 [facility] Comment on above: Order Comment: Speci men Type: BLOOD SPECIMENOrdering Facility: [facility] Address: [address] [place] [address] Performed By: #### 1 988-5, 57342-8, 84038-0, 3040-3 ####[facility] LABORATORYCLIA [id number] [place] [address] [place] Chloride [Moles/Vol] 98 mmol/L Normal 98-107 [facility] Comment on above: Order Comment: Speci men Type: BLOOD SPECIMENOrdering Facility: [facility] Address: [address] [place] [address] Performed By: #### 1 988-5, 08426-5, 37250-4, 0-3 ####[facility] LABORATORYCLIA [id number] [place] [address] [place] CO2 [Moles/Vol] 28 mmol/L Normal 22-30 [facility] Comment on above: Order Comment: Speci men Type: BLOOD SPECIMENOrdering Facility: [facility] Address: [address] [place] [address] Performed By: #### 1 988-5, 83018-0, 62178-0, 0-3 ####[facility] LABORATORYCLIA [id number] [place] [address] [place] Creatinine [Mass/Vol] 0.76 mg/dL Normal 0.58-0.96 [facility] Comment on above: Order Comment: Speci men Type: BLOOD SPECIMENOrdering Facility: [facility] Address: [address] [place] [address] Performed By: #### 1 988-5, 64841-5, 20354-5, 3040-3 ####[facility] LABORATORYCLIA [id number] [place] [id number] [facility] [place] Creatinine and Glomerular filtration rate.predicted panel (S/P/Bld) 75 mL/min/1.73m??? Normal >=60 [facility] Comment on above: Order Comment: Speci men Type: BLOOD SPECIMENOrdering Facility: [facility] Address: [address] [place] [address] Result Comment: Hilda mated Glomerular Filtration Rate [...] actual GFR. Performed By: #### 1 988-5, 33659-8, 10226-7, 0-3 ####[facility] LABORATORYCLIA [id number] [place] [address] [place] Glucose [Mass/Vol] 260 mg/dL High 74-99 [facility] Comment on above: Order Comment: Fan meade Type: BLOOD SPECIMENOrdering Facility: [facility] Address: [address] [place] [address] Result Comment: The [place] Diabetes Association (ADA) provides guidance for cutoff [...] Standards of Medical Care in Diabetes 2016, [place] [employer]. Diabetes Care. 2016.39(Suppl 1). Performed By: #### 1 988-5, 24268-1, 32706-7, 0-3 ####[facility] LABORATORYCLIA [id number] [place] [address] [place] Potassium [Moles/Vol] 4.5 mmol/L Normal 3.7-5.1 [facility] Comment on above: Order Comment: Fan meade Type: BLOOD SPECIMENOrdering Facility: [facility] Address: [address] [place] [address] Performed By: #### 1 988-5, 78818-0, 96297-1, 0-3 ####[facility] LABORATORYCLIA [id number] [place] [address] [place] Protein [Mass/Vol] 5.5 g/dL Low 6.3-8.0 [facility] Comment on above: Order Comment: Speci men Type: BLOOD SPECIMENOrdering Facility: [facility] Address: [address] [place] [address] Performed By: #### 1 988-5, 47085-4, 14384-9, 0-3 ####[facility] LABORATORYCLIA [id number] [place] [address] [place] Sodium [Moles/Vol] 135 mmol/L Low 136-144 [facility] Comment on above: Order Comment: Speci men Type: BLOOD SPECIMENOrdering Facility: [facility] Address: [address] [place] [address] Performed By: #### 1 988-5, 15751-0, 14625-5, 0-3 ####[facility] LABORATORYCLIA [id number] [place] [address] [place] Urea nitrogen [Mass/Vol] 43 mg/dL High 7-21 [facility] Comment on above: Order Comment: Speci men Type: BLOOD SPECIMENOrdering Facility: [facility] Address: [address] [place] [address] Performed By: #### 1 988-5, 47353-5, 15744-7, 0-3 ####[facility] LABORATORYCLIA [id number] [place] [address] [place] ESR Westergren method (Bld) [Velocity]on 12-07-2024 ESR (Bld) [Velocity] 103 mm/h High 0-20 [facility] Comment on above: Order Comment: Speci men Type: BLOOD SPECIMENOrdering Facility: [facility] Address: [address] [place] [address] Performed By: #### 4 537-7 ####[facility] LABCLIA [id number] [facility] [id number] [address] [place] Folate SerPl-mCncon 12-07-19 25 Folate [Mass/Vol] 7.7 ng/mL Normal >4.7 [facility] Comment on above: Order Comment: Speci men Type: BLOOD SPECIMENOrdering Facility: [facility] Address: [address] [place] [phone] Performed By: #### 2 284-8, 9 ####[facility] LABORATORYCLIA [id number] [place] [address] [facility] [place] Lipase SerPl-cCncon 12-07-19 25 Lipase [Catalytic activity/Vol] 50 U/L Normal 16-61 [facility] Comment on above: Order Comment: Speci men Type: BLOOD SPECIMENOrdering Facility: [facility] Address: [address] [place], [place] [address] [phone] Performed By: #### 1 988-5, 16166-9, 92188-8, 0-3 ####[facility] LABORATORYCLIA [id number] [address] [place] Magnesium SerPl-mCncon 12-07 Magnesium [Mass/Vol] 1.7 mg/dL Normal 1.7-2.3 [facility] Comment on above: Order Comment: Speci men Type: BLOOD SPECIMENOrdering Facility: [facility] Address: [address] [place] [address] [place] [phone] Performed By: #### 1 988-5, 86055-6, 99013-5, 0-3 ####[facility] LABORATORYCLIA [id number] [address] [place] US DVT LOWER BILon 5 US DVT LOWER RADHA Normal [facility] Vit B12 SerPl-mCncon 025 Cobalamin (Vitamin B12) [Mass/Vol] 400 pg/mL Normal 232-1245 [facility] Comment on above: Order Comment: Speci men Type: BLOOD SPECIMENOrdering Facility: [facility] Address: [address] [place], [place] [address] [phone] Performed By: #### 2 284-8, 9 ####[facility] LABORATORYCLIA [id number] [place] [address] [place] XR ABD 2V SUPINE W UPR/DECUB /CTLon 12-07-2024 XR ABD 2V SUPINE W UPR/DECUB/CTL Normal [facility] CASE MANAGEMon 01-23-20[facility] CBC W Auto Differential pane l (Bld)on 12-06-2024 Basophils (Bld) [#/Vol] 0.03 10*3/uL Normal <0.11 [facility] Comment on above: Order Comment: Speci men Type: BLOOD SPECIMENOrdering Facility: [facility] Address: [address] [place] [address] Performed By: #### 5 7021-8 ####[facility] LABORATORYCLIA [id number] [place] [address] [place] Basophils/100 WBC (Bld) 0.2 % Normal [place] Comment on above: Order Comment: Speci men Type: BLOOD SPECIMENOrdering Facility: [facility] Address: [address] [place] [address] Performed By: #### 5 7021-8 ####[facility] LABORATORYCLIA [id number] [place] [address] [place] Differential cell count method Nom (Bld) Auto Normal [facility] Comment on above: Order Comment: Speci men Type: BLOOD SPECIMENOrdering Facility: [facility] Address: [address] [place] [address] Performed By: #### 5 7021-8 ####[facility] LABORATORYCLIA [id number] [place] [address] [place] Eosinophils (Bld) [#/Vol] 0.09 10*3/uL Normal <0.46 [facility] Comment on above: Order Comment: Speci men Type: BLOOD SPECIMENOrdering Facility: [facility] Address: [address] [place] [address] Performed By: #### 5 7021-8 ####V[facility] LABORATORYCLIA [id number] [place] [id number] [place] Eosinophils/100 WBC (Bld) 0.6 % Normal [facility] Comment on above: Order Comment: Speci men Type: BLOOD SPECIMENOrdering Facility: [facility] Address: [address] [place] [address] Performed By: #### 5 7021-8 ####[facility] LABORATORYCLIA [id number] [place] [address] [place] Erythrocyte distribution width (RBC) [Ratio] 15.9 % High 11.5-15.0 [facility] Comment on above: Order Comment: Speci men Type: BLOOD SPECIMENOrdering Facility: [facility] Address: [address] [place] [address] Performed By: #### 5 7021-8 ####[facility] LABORATORYCLIA [id number] [place] [address] [place] Hematocrit (Bld) [Volume fraction] 25.5 % Low 36.0-46.0 [facility] Comment on above: Order Comment: Speci men Type: BLOOD SPECIMENOrdering Facility: [facility] Address: [address] [place] [address] Performed By: #### 5 7021-8 ####[facility] LABORATORYCLIA [id number] [place] [address] [place] Hemoglobin (Bld) [Mass/Vol] 8.3 g/dL Low 11.5-15.5 [facility] Comment on above: Order Comment: Speci men Type: BLOOD SPECIMENOrdering Facility: [facility] Address: [address] [place] [address] Performed By: #### 5 7021-8 ####[facility] LABORATORYCLIA [id number] [place] [address] [place] Immature granulocytes (Bld) [#/Vol] 0.15 10*3/uL High <0.10 [facility] Comment on above: Order Comment: Speci men Type: BLOOD SPECIMENOrdering Facility: [facility] Address: [address] [place] [address] Performed By: #### 5 7021-8 ####[facility] LABORATORYCLIA [id number] [address] [place] Immature granulocytes/100 WBC (Bld) 1.0 % Normal [facility] Comment on above: Order Comment: Speci men Type: BLOOD SPECIMENOrdering Facility: [facility] Address: [address] [place] [address] Performed By: #### 5 7021-8 ####[facility] LABORATORYCLIA [id number] [address] Lymphocytes (Bld) [#/Vol] 0.98 10*3/uL Low 1.00-4.00 [facility] Comment on above: Order Comment: Speci men Type: BLOOD SPECIMENOrdering Facility: [facility] Address: [address] [place] [address] Performed By: #### 5 7021-8 ####[facility] LABORATORYCLIA [id number] [address] Lymphocytes/100 WBC (Bld) 6.7 % Normal [facility] Comment on above: Order Comment: Speci men Type: BLOOD SPECIMENOrdering Facility: [facility] Address: [address] [place] [address] Performed By: #### 5 7021-8 ####[facility] LABORATORYCLIA [id number] [address] MCH (RBC) [Entitic mass] 27.9 pg Normal 26.0-34.0 [facility] Comment on above: Order Comment: Speci men Type: BLOOD SPECIMENOrdering Facility: [facility] Address: [address] [place] [address] Performed By: #### 5 7021-8 ####[facility] LABORATORYCLIA [id number] [address] MCHC (RBC) [Mass/Vol] 32.5 g/dL Normal 30.5-36.0 [facility] Comment on above: Order Comment: Speci men Type: BLOOD SPECIMENOrdering Facility: [facility] Address: [address] [place] [address] Performed By: #### 5 7021-8 ####[facility] LABORATORYCLIA [id number] [address] MCV (RBC) [Entitic vol] 85.9 fL Normal 80.0-100.0 M [facility] Comment on above: Order Comment: Speci men Type: BLOOD SPECIMENOrdering Facility: [facility] Address: [address] [place] [address] Performed By: #### 5 7021-8 ####[facility] LABORATORYCLIA [id number] [place] [address] [place] Monocytes (Bld) [#/Vol] 0.94 10*3/uL High <0.87 [facility] Comment on above: Order Comment: Speci men Type: BLOOD SPECIMENOrdering Facility: [facility] Address: [address] [place] [address] Performed By: #### 5 7021-8 ####[facility] LABORATORYCLIA [id number] [address] [place] Monocytes/100 WBC (Bld) 6.5 % Normal [place] Comment on above: Order Comment: Speci men Type: BLOOD SPECIMENOrdering Facility: [facility] Address: [address] [place] [address] Performed By: #### 5 7021-8 ####[facility] LABORATORYCLIA [id number] [place] [address] [place] Neutrophils (Bld) [#/Vol] 12.37 10*3/uL High 1.45-7.50 [facility] Comment on above: Order Comment: Speci men Type: BLOOD SPECIMENOrdering Facility: [facility] Address: [address] [place] [address] Performed By: #### 5 7021-8 ####[facility] LABORATORYCLIA [id number] [address] [place] Neutrophils/100 WBC (Bld) 85.0 % Normal [facility] Comment on above: Order Comment: Speci men Type: BLOOD SPECIMENOrdering Facility: [facility] Address: [address] [place] [address] Performed By: #### 5 7021-8 ####[facility] LABORATORYCLIA [id number] [place] [address] [place] Nucleated RBC (Bld) [#/Vol] 10*3/uL Normal <0.01 [facility] Comment on above: Order Comment: Speci men Type: BLOOD SPECIMENOrdering Facility: [facility] Address: [address] [place] [address] Performed By: #### 5 7021-8 ####[facility] LABORATORYCLIA [id number] [place] [address] [place] Nucleated RBC/100 WBC (Bld) [Ratio] 0.0 /100 WBC Normal [facility] Comment on above: Order Comment: Speci men Type: BLOOD SPECIMENOrdering Facility: [facility] Address: [address] [place] [address] Performed By: #### 5 7021-8 ####[facility] LABORATORYCLIA [id number] [place] [address] [place] Platelet mean volume (Bld) [Entitic vol] 8.3 fL Low 9.0-12.7 [facility] Comment on above: Order Comment: Speci men Type: BLOOD SPECIMENOrdering Facility: [facility] Address: [address] [place] [address] Performed By: #### 5 7021-8 ####[facility] LABORATORYCLIA [id number] [place] [address] [place] Platelets (Bld) [#/Vol] 602 10*3/uL High 150-400 [facility] Comment on above: Order Comment: Speci men Type: BLOOD SPECIMENOrdering Facility: [facility] Address: [address] [place] [address] Performed By: #### 5 7021-8 ####[facility] LABORATORYCLIA [id number] [place] [address] [place] RBC (Bld) [#/Vol] 2.97 10*6/uL Low 3.90-5.20 [facility] Comment on above: Order Comment: Speci men Type: BLOOD SPECIMENOrdering Facility: [facility] Address: [address] [place] [address] Performed By: #### 5 7021-8 ####[facility] LABORATORYCLIA [id number] [address] [place] WBC (Bld) [#/Vol] 14.56 10*3/uL High 3.70-11.00 [facility] Comment on above: Order Comment: Speci men Type: BLOOD SPECIMENOrdering Facility: [facility] Address: [address] [place] [phone] Performed By: #### 5 7021-8 ####[facility] LABORATORYCLIA [id number] [place] [address] [place] CONSULTon 12-06-2024 CONSULT Normal [facility] CONSULT Normal [facility] CONSULT PROGon 12-06-2024 CONSULT PROG Normal [facility] CONSULT PROG Normal [facility] Comprehensive metabolic 2000 panelon 12-06-2024 Albumin [Mass/Vol] 2.5 g/dL Low 3.9-4.9 [facility] Comment on above: Order Comment: Speci men Type: BLOOD SPECIMENOrdering Facility: [facility] Address: [facility] [place] [address] Performed By: #### 2 951-2, , ####[facility] LABORATORYCLIA [id number] [place] [address] [place] ALP [Catalytic activity/Vol] 112 U/L Normal 34-123 [facility] Comment on above: Order Comment: Speci men Type: BLOOD SPECIMENOrdering Facility: [facility] Address: [facility] [place] [phone] Performed By: #### 2 951-2, , ####[facility] LABORATORYCLIA [id number] [place] [address] [place] ALT [Catalytic activity/Vol] U/L Low 7-38 [facility] Comment on above: Order Comment: Speci men Type: BLOOD SPECIMENOrdering Facility: [facility] Address: [address] [id number] Performed By: #### 2 951-2, , ####[facility]ILL[facility]RE[facility] LABORATORYCLIA [id number] [place] [id number] [place] Anion gap [Moles/Vol] 10 mmol/L Normal 8-15 [facility] Comment on above: Order Comment: Speci men Type: BLOOD SPECIMENOrdering Facility: [facility] Address: [address] [place] [address] Performed By: #### 2 951-2, , ####[facility] LABORATORYCLIA [id number] [place] [address] [place] AST [Catalytic activity/Vol] 25 U/L Normal 13-35 [facility] Comment on above: Order Comment: Speci men Type: BLOOD SPECIMENOrdering Facility: [facility] Address: [address] [place] [address] Performed By: #### 2 951-2, , ####[facility] LABORATORYCLIA [id number] [place] [address] [place] Bilirubin [Mass/Vol] mg/dL Low 0.2-1.3 [facility] Comment on above: Order Comment: Speci men Type: BLOOD SPECIMENOrdering Facility: [facility] Address: [address] [place] [address] Performed By: #### 2 951-2, , ####VILLAR[facility] LABORATORYCLIA [id number] [place] [address] [place] Calcium [Mass/Vol] 9.5 mg/dL Normal 8.5-10.2 [facility] Comment on above: Order Comment: Speci men Type: BLOOD SPECIMENOrdering Facility: [facility] Address: [address] [place] [address] Performed By: #### 2 951-2, , ####VILLARRE[facility] LABORATORYCLIA [id number] [place] [id number] [place] Chloride [Moles/Vol] 97 mmol/L Low 98-107 [facility] Comment on above: Order Comment: Speci men Type: BLOOD SPECIMENOrdering Facility: [facility] Address: [address] [place] [address] Performed By: #### 2 951-2, , ####VILLARRE[facility] LABORATORYCLIA [id number] [place] [address] [place] CO2 [Moles/Vol] 27 mmol/L Normal 22-30 [facility] Comment on above: Order Comment: Speci men Type: BLOOD SPECIMENOrdering Facility: [facility] Address: [address] [place] [id number] Performed By: #### 2 951-2, , ####VILLARREAL LABORATORYCLIA [id number] [place] [id number] [place] [facility] Creatinine [Mass/Vol] 0.95 mg/dL Normal 0.58-0.96 [facility] Comment on above: Order Comment: Fan meade Type: BLOOD SPECIMENOrdering Facility: [facility] Address: [address] [place] [address] Performed By: #### 2 951-2, , ####VILLARREAL LABORATORYCLIA [id number] [place] [id number] [facility] Creatinine and Glomerular filtration rate.predicted panel (S/P/Bld) 58 mL/min/1.73m??? Low >=60 [facility] Comment on above: Order Comment: Fan meade Type: BLOOD SPECIMENOrdering Facility: [facility] Address: [address] [place] [address] Result Comment: Hilda mated Glomerular Filtration Rate [...] By: #### 2 951-2, , ####VILLARREAL LABORATORYCLIA [id number] [place] [id number] [place] Glucose [Mass/Vol] 93 mg/dL Normal 74-99 [facility] Comment on above: Order Comment: Fan meade Type: BLOOD SPECIMENOrdering Facility: [facility] Address: [address] [place] [address] Result Comment: The [place] Diabetes Association (ADA) provides guidance for cutoff [...] Standards of Medical Care in Diabetes 2016, [place] [employer] Association. Diabetes Care. 2016.39(Suppl 1). Performed By: #### 2 951-2, , ####[facility] LABORATORYCLIA [id number] [place] [address] [place] Potassium [Moles/Vol] 3.8 mmol/L Normal 3.7-5.1 [facility] Comment on above: Order Comment: Fan [place]ade Type: BLOOD SPECIMENOrdering Facility: [facility] Address: [address] [place] [address] Performed By: #### 2 95-2, , ####[facility] LABORATORYCLIA [id number] [place] [address] [place] Protein [Mass/Vol] 5.7 g/dL Low 6.3-8.0 [facility] Comment on above: Order Comment: Fan meade Type: BLOOD SPECIMENOrdering Facility: [facility] Address: [address] [place], [place] [id number] Performed By: #### 2 951-2, , ####[facility] LABORATORYCLIA [id number] [place] [address] [place] Urea nitrogen [Mass/Vol] 45 mg/dL High 7-21 [facility] Comment on above: Order Comment: Fan meade Type: BLOOD SPECIMENOrdering Facility: [facility] Address: [address] [place] [address] Performed By: #### 2 95-2, , ####[facility] LABORATORYCLIA [id number] [place] [address] [place] Magnesium SerPl-mCncon 12-06 Magnesium [Mass/Vol] 1.8 mg/dL Normal 1.7-2.3 [facility] Comment on above: Order Comment: Speci men Type: BLOOD SPECIMENOrdering Facility: [facility] Address: [facility] [place] [address] Performed By: #### 2 951-2, , ####VILLARRE[facility] LABORATORYCLIA [id number] [place] [address] [place] Sodium SerPl-sCncon 12-06-19 25 Sodium [Moles/Vol] 135 mmol/L Low 136-144 [facility] Comment on above: Order Comment: Speci men Type: BLOOD SPECIMENOrdering Facility: [facility] Address: [address] [place] [address] Performed By: #### 2 951-2 ####VILLARRE[facility] LABORATORYCLIA [id number] [place] [address] [place] Sodium [Moles/Vol] 132 mmol/L Low 136-144 [facility] Comment on above: Order Comment: Speci men Type: BLOOD SPECIMENOrdering Facility: [facility] Address: [address] [place] [address] Performed By: #### 2 951-2 ####VILLARREAL LABORATORYCLIA [id number] [place] [address] [place] Sodium [Moles/Vol] 136 mmol/L Normal 136-144 [facility] Comment on above: Order Comment: Speci men Type: BLOOD SPECIMENOrdering Facility: [facility] Address: [address] [place] [address] Performed By: #### 2 951-2 ####VILLARREAL LABORATORYCLIA [id number] [place] [address] [place] Sodium [Moles/Vol] 134 mmol/L Low 136-144 [facility] Comment on above: Order Comment: Speci men Type: BLOOD SPECIMENOrdering Facility: [facility] Address: [address] [place] [address] Performed By: #### 2 951-2, , ####VILL[facility] LABORATORYCLIA [id number] [address] Sodium [Moles/Vol] 131 mmol/L Low 136-144 [facility] Comment on above: Order Comment: Speci men Type: BLOOD SPECIMENOrdering Facility: [facility] Address: [address] [place] [address] Performed By: #### 2 951-2 ####[facility] LABORATORYCLIA [id number] [place] [address] [place] [facility] [place] THERAPY NTon 12-06-2024 THERAPY NT Normal [facility] URINALYSIS, REFLEX MICROSCOP ICon 12-06-2024 Bilirubin Ql (U) Negative Normal Negative [facility] Comment on above: Order Comment: Speci men Type: URINE SPECIMENOrdering Facility: [facility] Address: [address] [place] [address] Performed By: #### L [id number] ####[facility] LABORATORYCLIA [id number] [address] Clarity (Unsp spec) Clear Normal Clear [facility] Comment on above: Order Comment: Speci men Type: URINE SPECIMENOrdering Facility: [facility] Address: [address] [place] [address] Performed By: #### L [id number] ####VILL[facility] LABORATORYCLIA [id number] [address] Color (U) Yellow Normal Yellow [facility] Comment on above: Order Comment: Speci men Type: URINE SPECIMENOrdering Facility: [facility] Address: [address] [place] [address] Performed By: #### L [id number] ####VILLARRE[facility] LABORATORYCLIA [id number] [address] Epithelial cells LM.HPF (Urine sed) [#/Area] Few Normal [facility] Comment on above: Order Comment: Speci men Type: URINE SPECIMENOrdering Facility: [facility] Address: [address] [place] [address] Performed By: #### L [id number] ####VILLARRE[facility] LABORATORYCLIA [id number] [address] [place] Glucose Test strip (U) [Mass/Vol] Negative Normal Negative [facility] Comment on above: Order Comment: Speci men Type: URINE SPECIMENOrdering Facility: [facility] Address: [address] [place] [address] Performed By: #### L [id number] ####VILL[facility] LABORATORYCLIA [id number] [place] [address] [place] Hemoglobin Ql (U) Negative Normal Negative [facility] Comment on above: Order Comment: Speci men Type: URINE SPECIMENOrdering Facility: [facility] Address: [address] [place] [address] Performed By: #### L [id number] ####VILLAR[facility] LABORATORYCLIA [id number] [address] [place] Ketones Ql (U) Negative Normal Negative [facility] Comment on above: Order Comment: Speci men Type: URINE SPECIMENOrdering Facility: [facility] Address: [address] [place] [address] Performed By: #### L [id number] ####VILL[facility] LABORATORYCLIA [id number] [address] [place] Leukocyte esterase Test strip Ql (U) 1+ Abnormal Negative [facility] Comment on above: Order Comment: Speci men Type: URINE SPECIMENOrdering Facility: [facility] Address: [address] [place] [address] Performed By: #### L [id number] ####VILL[facility] LABORATORYCLIA [id number] [address] [place] Nitrite Ql (U) Negative Normal Negative [facility] Comment on above: Order Comment: Speci men Type: URINE SPECIMENOrdering Facility: [facility] Address: [address] [place] [address] Performed By: #### L [id number] ####VILLAR[facility] LABORATORYCLIA [id number] [address] [place] pH (U) 6.0 [pH] Normal 5.0-8.0 [facility] Comment on above: Order Comment: Speci men Type: URINE SPECIMENOrdering Facility: [facility] Address: [address] [place], [place] [id number] Performed By: #### L [id number] ####VILLARRE[facility] LABORATORYCLIA [id number] [address] Protein (U) [Mass/Vol] 1+ Abnormal Negative [facility] Comment on above: Order Comment: Speci men Type: URINE SPECIMENOrdering Facility: [facility] Address: [address] [place] [address] Performed By: #### L [id number] ####VILLARRE[facility] LABORATORYCLIA [id number] [address] [place] RBC LM.HPF (Urine sed) [#/Area] 0-3 /HPF Normal 0-3 /HPF [facility] Comment on above: Order Comment: Speci men Type: URINE SPECIMENOrdering Facility: [facility] Address: [address] [place] [address] Performed By: #### L [id number] ####VILLAR[facility] LABORATORYCLIA [id number] [address] Specific gravity (U) [Rel density] 1.010 Normal 1.005-1.030 [facility] Comment on above: Order Comment: Speci men Type: URINE SPECIMENOrdering Facility: [facility] Address: [address] [place] [address] Performed By: #### L [id number] ####VILALRREAL LABORATORYCLIA [id number] [address] Urobilinogen Ql (U) 0.2 EU/dL Normal 0.2-1.0 EU/dL [facility] Comment on above: Order Comment: Speci men Type: URINE SPECIMENOrdering Facility: [facility] Address: [address] [place] [address] Performed By: #### L [id number] ####VILLAR[facility] LABORATORYCLIA [id number] [address] WBC LM.HPF (Urine sed) [#/Area] 0-5 /HPF Normal 0-5 /HPF [facility] Comment on above: Order Comment: Speci men Type: URINE SPECIMENOrdering Facility: [facility] Address: [address] [place] [address] Performed By: #### L [id number] ####VILLARRE[facility] LABORATORYCLIA [id number] [place] [address] [place] Yeast.budding LM.HPF (Urine sed) [#/Area] Few Abnormal None Seen [facility] Comment on above: Order Comment: Speci men Type: URINE SPECIMENOrdering Facility: [facility] Address: [address] [place] [address] Performed By: #### L [id number] ####VILL[facility] LABORATORYCLIA [id number] [place] [address] [place] ALLIED HEALTHon 12-05-2024 ALLIED HEALTH Normal [facility] CASE MANAGEMon 12-05-2024 CASE MANAGEM Normal [facility] CASE MANAGEM [facility] CBC W Auto Differential pane l (Bld)on 12-05-2024 Basophils (Bld) [#/Vol] 10*3/uL Normal <0.11 [place] Comment on above: Order Comment: Speci men Type: BLOOD SPECIMENOrdering Facility: [facility] Address: [address] [place] [address] Performed By: #### 5 7021-8 ####VILLARRE[facility] LABORATORYCLIA [id number] [place] [address] [place] Basophils/100 WBC (Bld) 0.1 % Normal [place] Comment on above: Order Comment: Speci men Type: BLOOD SPECIMENOrdering Facility: [facility] Address: [address] [place] [address] Performed By: #### 5 7021-8 ####VILLARRE[facility] LABORATORYCLIA [id number] [place] [address] [place] Differential cell count method Nom (Bld) Auto Normal [facility] Comment on above: Order Comment: Speci men Type: BLOOD SPECIMENOrdering Facility: [facility] Address: [address] [place] [address] Performed By: #### 5 7021-8 ####VILLARRE[facility] LABORATORYCLIA [id number] [place] [address] [place] Eosinophils (Bld) [#/Vol] 10*3/uL Normal <0.46 [facility] Comment on above: Order Comment: Speci men Type: BLOOD SPECIMENOrdering Facility: [facility] Address: [address] [place] [address] Performed By: #### 5 7021-8 ####VILLAR[facility] LABORATORYCLIA [id number] [address] [place] Eosinophils/100 WBC (Bld) 0.0 % Normal [facility] Comment on above: Order Comment: Speci men Type: BLOOD SPECIMENOrdering Facility: [facility] Address: [address] [place] [address] Performed By: #### 5 7021-8 ####VILLARREAL LABORATORYCLIA [id number] [place] [address] [place] [facility] [place] Erythrocyte distribution width (RBC) [Ratio] 15.8 % High 11.5-15.0 [facility] Comment on above: Order Comment: Speci men Type: BLOOD SPECIMENOrdering Facility: [facility] Address: [address] [place] [address] Performed By: #### 5 7021-8 ####VILLAR[facility] LABORATORYCLIA [id number] [address] [place] Hematocrit (Bld) [Volume fraction] 26.3 % Low 36.0-46.0 [facility] Comment on above: Order Comment: Speci men Type: BLOOD SPECIMENOrdering Facility: [facility] Address: [address] [place] [address] Performed By: #### 5 7021-8 ####VILLAR[facility] LABORATORYCLIA [id number] [place] [address] [place] Hemoglobin (Bld) [Mass/Vol] 8.5 g/dL Low 11.5-15.5 [facility] Comment on above: Order Comment: Speci men Type: BLOOD SPECIMENOrdering Facility: [facility] Address: [address] [place] [address] Performed By: #### 5 7021-8 ####VILLARREAL LABORATORYCLIA [id number] [place] [address] [place] Immature granulocytes (Bld) [#/Vol] 0.11 10*3/uL High <0.10 [facility] Comment on above: Order Comment: Speci men Type: BLOOD SPECIMENOrdering Facility: [facility] Address: [address] [place] [address] Performed By: #### 5 7021-8 ####VILLARRE[facility] LABORATORYCLIA [id number] [address] Immature granulocytes/100 WBC (Bld) 0.9 % Normal [facility] Comment on above: Order Comment: Speci men Type: BLOOD SPECIMENOrdering Facility: [facility] Address: [address] [place] [address] Performed By: #### 5 7021-8 ####VILLAR[facility] LABORATORYCLIA [id number] [address] Lymphocytes (Bld) [#/Vol] 0.46 10*3/uL Low 1.00-4.00 [facility] Comment on above: Order Comment: Speci men Type: BLOOD SPECIMENOrdering Facility: [facility] Address: [address] [place] [address] Performed By: #### 5 7021-8 ####VILL[facility] LABORATORYCLIA [id number] [address] Lymphocytes/100 WBC (Bld) 3.8 % Normal [facility] Comment on above: Order Comment: Speci men Type: BLOOD SPECIMENOrdering Facility: [facility] Address: [address] [place] [address] Performed By: #### 5 7021-8 ####VILLAR[facility] LABORATORYCLIA [id number] [address] MCH (RBC) [Entitic mass] 27.9 pg Normal 26.0-34.0 [facility] Comment on above: Order Comment: Speci men Type: BLOOD SPECIMENOrdering Facility: [facility] Address: [address] [place] [address] Performed By: #### 5 7021-8 ####VILLAR[facility] LABORATORYCLIA [id number] [address] [place] MCHC (RBC) [Mass/Vol] 32.3 g/dL Normal 30.5-36.0 [facility] Comment on above: Order Comment: Speci men Type: BLOOD SPECIMENOrdering Facility: [facility] Address: [address] [place] [address] Performed By: #### 5 7021-8 ####VILLAR[facility] LABORATORYCLIA [id number] [address] MCV (RBC) [Entitic vol] 86.2 fL Normal 80.0-100.0 [place] Comment on above: Order Comment: Speci men Type: BLOOD SPECIMENOrdering Facility: [facility] Address: [address] [place] [address] Performed By: #### 5 7021-8 ####VILL[facility] LABORATORYCLIA [id number] [address] [place] Monocytes (Bld) [#/Vol] 0.18 10*3/uL Normal <0.87 [facility] Comment on above: Order Comment: Speci men Type: BLOOD SPECIMENOrdering Facility: [facility] Address: [address] [place] [address] Performed By: #### 5 7021-8 ####VILL[facility] LABORATORYCLIA [id number] [address] Monocytes/100 WBC (Bld) 1.5 % Normal [place] Comment on above: Order Comment: Speci men Type: BLOOD SPECIMENOrdering Facility: [facility] Address: [address] [place] [address] Performed By: #### 5 7021-8 ####VILLAR[facility] LABORATORYCLIA [id number] [place] [address] [place] Neutrophils (Bld) [#/Vol] 11.38 10*3/uL High 1.45-7.50 [facility] Comment on above: Order Comment: Speci men Type: BLOOD SPECIMENOrdering Facility: [facility] Address: [address] [place] [address] Performed By: #### 5 7021-8 ####VILLARRE[facility] LABORATORYCLIA [id number] [address] [place] [facility] Neutrophils/100 WBC (Bld) 93.7 % Normal [facility] Comment on above: Order Comment: Speci men Type: BLOOD SPECIMENOrdering Facility: [facility] Address: [address] [place] [address] Performed By: #### 5 7021-8 ####VILL[facility] LABORATORYCLIA [id number] [place] [address] [place] Nucleated RBC (Bld) [#/Vol] 10*3/uL Normal <0.01 [facility] Comment on above: Order Comment: Speci men Type: BLOOD SPECIMENOrdering Facility: [facility] Address: [address] [place] [address] Performed By: #### 5 7021-8 ####VILL[facility] LABORATORYCLIA [id number] [address] [place] Nucleated RBC/100 WBC (Bld) [Ratio] 0.0 /100 WBC Normal [facility] Comment on above: Order Comment: Speci men Type: BLOOD SPECIMENOrdering Facility: [facility] Address: [address] [place] [address] Performed By: #### 5 7021-8 ####VILLARRE[facility] LABORATORYCLIA [id number] [place] [address] [place] Platelet mean volume (Bld) [Entitic vol] 8.8 fL Low 9.0-12.7 [facility] Comment on above: Order Comment: Speci men Type: BLOOD SPECIMENOrdering Facility: [facility] Address: [address] [place] [address] Performed By: #### 5 7021-8 ####VILLAR[facility] LABORATORYCLIA [id number] [place] [address] [place] Platelets (Bld) [#/Vol] 568 10*3/uL High 150-400 [facility] Comment on above: Order Comment: Speci men Type: BLOOD SPECIMENOrdering Facility: [facility] Address: [address] [place] [address] Performed By: #### 5 7021-8 ####VILL[facility] LABORATORYCLIA [id number] [place] [address] [place] RBC (Bld) [#/Vol] 3.05 10*6/uL Low 3.90-5.20 [facility] Comment on above: Order Comment: Speci men Type: BLOOD SPECIMENOrdering Facility: [facility] Address: [address] [place] [address] Performed By: #### 5 7021-8 ####VILL[facility] LABORATORYCLIA [id number] [address] [place] WBC (Bld) [#/Vol] 12.14 10*3/uL High 3.70-11.00 [facility] Comment on above: Order Comment: Speci men Type: BLOOD SPECIMENOrdering Facility: [facility] Address: [address] [place] [address] Performed By: #### 5 7021-8 ####[facility] LABORATORYCLIA [id number] [address] CBC panel Auto (Bld)on 12-05 Erythrocyte distribution width (RBC) [Ratio] 15.8 % High 11.5-15.0 [facility] Comment on above: Order Comment: Speci men Type: BLOOD SPECIMENOrdering Facility: [facility] Address: [address] [place] [address] Performed By: #### 5 8410-2 ####[facility] LABORATORYCLIA [id number] [address] Hematocrit (Bld) [Volume fraction] 24.8 % Low 36.0-46.0 [facility] Comment on above: Order Comment: Speci men Type: BLOOD SPECIMENOrdering Facility: [facility] Address: [address] [place] [address] Performed By: #### 5 8410-2 ####VILLAR[facility] LABORATORYCLIA [id number] [address] Hemoglobin (Bld) [Mass/Vol] 8.2 g/dL Low 11.5-15.5 [facility] Comment on above: Order Comment: Speci men Type: BLOOD SPECIMENOrdering Facility: [facility] Address: [address] [place] [address] Performed By: #### 5 8410-2 ####VILLARRE[facility] LABORATORYCLIA [id number] [address] MCH (RBC) [Entitic mass] 28.1 pg Normal 26.0-34.0 [facility] Comment on above: Order Comment: Speci men Type: BLOOD SPECIMENOrdering Facility: [facility] Address: [address] [place] [address] Performed By: #### 5 8410-2 ####VILLARRE[facility] LABORATORYCLIA [id number] [address] [place] MCHC (RBC) [Mass/Vol] 33.1 g/dL Normal 30.5-36.0 [facility] Comment on above: Order Comment: Speci men Type: BLOOD SPECIMENOrdering Facility: [facility] Address: [address] [place] [address] Performed By: #### 5 8410-2 ####[facility] LABORATORYCLIA [id number] [address] MCV (RBC) [Entitic vol] 84.9 fL Normal 80.0-100.0 [facility] Comment on above: Order Comment: Speci men Type: BLOOD SPECIMENOrdering Facility: [facility] Address: [address] [place] [address] Performed By: #### 5 8410-2 ####[facility] LABORATORYCLIA [id number] [address] Nucleated RBC (Bld) [#/Vol] 10*3/uL Normal <0.01 [facility] Comment on above: Order Comment: Speci men Type: BLOOD SPECIMENOrdering Facility: [facility] Address: [address] [place] [address] Performed By: #### 5 8410-2 ####[facility] LABORATORYCLIA [id number] [address] Platelet mean volume (Bld) [Entitic vol] 8.8 fL Low 9.0-12.7 [facility] Comment on above: Order Comment: Speci men Type: BLOOD SPECIMENOrdering Facility: [facility] Address: [address] [place] [address] Performed By: #### 5 8410-2 ####[facility] LABORATORYCLIA [id number] [address] [place] Platelets (Bld) [#/Vol] 574 10*3/uL High 150-400 [facility] Comment on above: Order Comment: Speci men Type: BLOOD SPECIMENOrdering Facility: [facility] Address: [address] [place] [address] Performed By: #### 5 8410-2 ####[facility] LABORATORYCLIA [id number] [place] [address] [place] RBC (Bld) [#/Vol] 2.92 10*6/uL Low 3.90-5.20 [facility] Comment on above: Order Comment: Speci men Type: BLOOD SPECIMENOrdering Facility: [facility] Address: [address] [place] [address] Performed By: #### 5 8410-2 ####[facility] LABORATORYCLIA [id number] [address] [place] WBC (Bld) [#/Vol] 13.26 10*3/uL High 3.70-11.00 [facility] Comment on above: Order Comment: Speci men Type: BLOOD SPECIMENOrdering Facility: [facility] Address: [address] [place] [address] Performed By: #### 5 8410-2 ####[facility] LABORATORYCLIA [id number] [address] [place] CONSULT PROGon 12-05-2024 CONSULT PROG Normal [facility] CONSULT PROG Normal [facility] CONSULT PROG Normal [facility] Comprehensive metabolic 2000 panelon 12-05-2024 Albumin [Mass/Vol] 2.5 g/dL Low 3.9-4.9 [facility] Comment on above: Order Comment: Speci men Type: BLOOD SPECIMENOrdering Facility: [facility] Address: [address] [place] [address] Performed By: #### 3 040-3, 06739-8 ####[facility] LABORATORYCLIA [id number] [place] [address] [place] ALP [Catalytic activity/Vol] 117 U/L Normal 34-123 [facility] Comment on above: Order Comment: Speci men Type: BLOOD SPECIMENOrdering Facility: [facility] Address: [address] [place] [address] Performed By: #### 3 040-3, 84357-8 ####[facility] LABORATORYCLIA [id number] [place] [address] [place] ALT [Catalytic activity/Vol] U/L Low 7-38 [facility] Comment on above: Order Comment: Speci men Type: BLOOD SPECIMENOrdering Facility: [facility] Address: [address] [place] [address] Performed By: #### 3 040-3, 38827-7 ####[facility]ILLAR[facility] LABORATORYCLIA [id number] [place] [address] [place] Anion gap [Moles/Vol] 13 mmol/L Normal 8-15 [facility] Comment on above: Order Comment: Speci men Type: BLOOD SPECIMENOrdering Facility: [facility] Address: [address] [place] [address] Performed By: #### 3 040-3, 33874-0 ####[facility] LABORATORYCLIA [id number] [address] [place] AST [Catalytic activity/Vol] 18 U/L Normal 13-35 [facility] Comment on above: Order Comment: Speci men Type: BLOOD SPECIMENOrdering Facility: [facility] Address: [address] [place] [address] Performed By: #### 3 040-3, 96621-9 ####VILL[facility] LABORATORYCLIA [id number] [address] [place] Bilirubin [Mass/Vol] mg/dL Low 0.2-1.3 [facility] Comment on above: Order Comment: Speci men Type: BLOOD SPECIMENOrdering Facility: [facility] Address: [address] [place] [address] Performed By: #### 3 040-3, ####VILLARRE[facility] LABORATORYCLIA [id number] [place] [address] [place] Calcium [Mass/Vol] 9.5 mg/dL Normal 8.5-10.2 [facility] Comment on above: Order Comment: Speci men Type: BLOOD SPECIMENOrdering Facility: [facility] Address: [address] [place] [address] Performed By: #### 3 -3, ####VILLARREAL LABORATORYCLIA [id number] [place] [address] [place] Chloride [Moles/Vol] 92 mmol/L Low 98-107 [facility] Comment on above: Order Comment: Speci men Type: BLOOD SPECIMENOrdering Facility: [facility] Address: [address] [place] [address] Performed By: #### 3 040-3, ####VILLAR[facility] LABORATORYCLIA [id number] [place] [address] [place] CO2 [Moles/Vol] 24 mmol/L Normal 22-30 [facility] Comment on above: Order Comment: Speci men Type: BLOOD SPECIMENOrdering Facility: [facility] Address: [address] [place] [address] Performed By: #### 3 040-3, ####VILLARRE[facility] LABORATORYCLIA [id number] [place] [address] [place] Creatinine [Mass/Vol] 1.04 mg/dL High 0.58-0.96 [facility] Comment on above: Order Comment: Speci men Type: BLOOD SPECIMENOrdering Facility: [facility] Address: [address] [place] [address] Performed By: #### 3 040-3, 63878-2 ####[facility] LABORATORYCLIA [id number] [address] Creatinine and Glomerular filtration rate.predicted panel (S/P/Bld) 52 mL/min/1.73m??? Low >=60 [facility] Comment on above: Order Comment: Speci men Type: BLOOD SPECIMENOrdering Facility: [facility] Address: [address] [place] [address] Result Comment: Hilda mated Glomerular Filtration Rate [...] actual GFR. Performed By: #### 3 040-3, 24623-8 ####[facility] LABORATORYCLIA [id number] [place] [id number] [place] Glucose [Mass/Vol] 279 mg/dL High 74-99 [facility] Comment on above: Order Comment: Fan meade Type: BLOOD SPECIMENOrdering Facility: [facility] Address: [address] [place] [address] Result Comment: The [place] [employer] Association (ADA) provides guidance for cutoff [...] Standards of Medical Care in Diabetes 2016, [place] [employer]. Diabetes Care. 2016.39(Suppl 1). Performed By: #### 3 040-3, 81104-5 ####[facility] LABORATORYCLIA [id number] [place] [address] [place] Potassium [Moles/Vol] 4.4 mmol/L Normal 3.7-5.1 [facility] Comment on above: Order Comment: Fan meade Type: BLOOD SPECIMENOrdering Facility: [facility] Address: [address] [place], [place] [address] Performed By: #### 3 040-3, 37151-3 ####[facility]ILL[facility] LABORATORYCLIA [id number] [place] [address] [place] Protein [Mass/Vol] 5.8 g/dL Low 6.3-8.0 [facility] Comment on above: Order Comment: Speci men Type: BLOOD SPECIMENOrdering Facility: [facility] Address: [address] [place] [address] Performed By: #### 3 040-3, ####V[facility] LABORATORYCLIA [id number] [place] [address] [place] Sodium [Moles/Vol] 129 mmol/L Low 136-144 [facility] Comment on above: Order Comment: Speci men Type: BLOOD SPECIMENOrdering Facility: [facility] Address: [address] [place] [address] [place] [address] Performed By: #### 3 040-3, ####VILLAR[facility] LABORATORYCLIA [id number] [place] [address] [place] Urea nitrogen [Mass/Vol] 49 mg/dL High 7-21 [facility] Comment on above: Order Comment: Speci men Type: BLOOD SPECIMENOrdering Facility: [facility] Address: [address] [place] [address] [place] [address] Performed By: #### 3 040-3, ####VILL[facility] LABORATORYCLIA [id number] [place] [address] [place] Albumin [Mass/Vol] 2.5 g/dL Low 3.9-4.9 [facility] Comment on above: Order Comment: Speci men Type: BLOOD SPECIMENOrdering Facility: [facility] Address: [address] [place] [address] Performed By: #### 2 951-2, 72174-4, ####VILL[facility] LABORATORYCLIA [id number] [place] [address] [place] ALP [Catalytic activity/Vol] 122 U/L Normal 34-123 [facility] Comment on above: Order Comment: Speci men Type: BLOOD SPECIMENOrdering Facility: [facility] Address: [address] [place] [address] Performed By: #### 2 951-2, , ####VILLAR[facility] LABORATORYCLIA [id number] [place] [address] [place] ALT [Catalytic activity/Vol] U/L Low 7-38 [facility] Comment on above: Order Comment: Speci men Type: BLOOD SPECIMENOrdering Facility: [facility] Address: [address] [place] [address] Performed By: #### 2 951-2, , ####VILL[facility] LABORATORYCLIA [id number] [place] [address] [place] Anion gap [Moles/Vol] 11 mmol/L Normal 8-15 [facility] Comment on above: Order Comment: Speci men Type: BLOOD SPECIMENOrdering Facility: [facility] Address: [address] [place] [address] Performed By: #### 2 951-2, , ####VILL[facility] LABORATORYCLIA [id number] [place] [address] [place] AST [Catalytic activity/Vol] 21 U/L Normal 13-35 [facility] Comment on above: Order Comment: Speci men Type: BLOOD SPECIMENOrdering Facility: [facility] Address: [address] [place] [address] Performed By: #### 2 951-2, , ####VILLAR[facility] LABORATORYCLIA [id number] [place] [address] [place] Bilirubin [Mass/Vol] mg/dL Low 0.2-1.3 [facility] Comment on above: Order Comment: Speci men Type: BLOOD SPECIMENOrdering Facility: [facility] Address: [address] [place] [address] Performed By: #### 2 951-2, , ####V[facility] LABORATORYCLIA [id number] [place] [address] [place] Calcium [Mass/Vol] 9.8 mg/dL Normal 8.5-10.2 [facility] Comment on above: Order Comment: Speci men Type: BLOOD SPECIMENOrdering Facility: [facility] Address: [address] [place], [place] [address] Performed By: #### 2 951-2, 49790-2, ####VILL[facility] LABORATORYCLIA [id number] [place] [address] [place] Chloride [Moles/Vol] 94 mmol/L Low 98-107 [facility] Comment on above: Order Comment: Speci men Type: BLOOD SPECIMENOrdering Facility: [facility] Address: [address] [place] [address] Performed By: #### 2 951-2, 59909-6, ####VILLAR[facility] LABORATORYCLIA [id number] [place] [address] [place] CO2 [Moles/Vol] 26 mmol/L Normal 22-30 [facility] Comment on above: Order Comment: Speci men Type: BLOOD SPECIMENOrdering Facility: [facility] Address: [address] [place] [address] Performed By: #### 2 951-2, , ####[facility] LABORATORYCLIA [id number] [place] [address] [place] Creatinine [Mass/Vol] 0.89 mg/dL Normal 0.58-0.96 [facility] Comment on above: Order Comment: Speci men Type: BLOOD SPECIMENOrdering Facility: [facility] Address: [address] [place] [address] Performed By: #### 2 951-2, , ####[facility] LABORATORYCLIA [id number] [address] Creatinine and Glomerular filtration rate.predicted panel (S/P/Bld) 62 mL/min/1.73m??? Normal >=60 [facility] Comment on above: Order Comment: Speci men Type: BLOOD SPECIMENOrdering Facility: [facility] Address: [address] [place] [address] Result Comment: Hilda mated Glomerular Filtration Rate [...] actual GFR. Performed By: #### 2 951-2, 66474-4, ####[facility] LABORATORYCLIA [id number] [place] [address] [place] Glucose [Mass/Vol] 238 mg/dL High 74-99 [facility] Comment on above: Order Comment: Fan meade Type: BLOOD SPECIMENOrdering Facility: [facility] Address: [address] [place], [place] [address] Result Comment: The [place] [employer] (ADA) provides guidance for cutoff [...] Standards of Medical Care in Diabetes 2016, [place] [employer]. Diabetes Care. 2016.39(Suppl 1). Performed By: #### 2 951-2, , ####[facility] LABORATORYCLIA [id number] [place] [address] [place] Potassium [Moles/Vol] 5.2 mmol/L High 3.7-5.1 [facility] Comment on above: Order Comment: Fan meade Type: BLOOD SPECIMENOrdering Facility: [facility] Address: [address] [place] [id number] Performed By: #### 2 951-2, , ####[facility] LABORATORYCLIA [id number] [place] [address] [place] Protein [Mass/Vol] 6.1 g/dL Low 6.3-8.0 [facility] Comment on above: Order Comment: Speci men Type: BLOOD SPECIMENOrdering Facility: [facility] Address: [address] [place] [address] Performed By: #### 2 951-2, 02663-2, ####VILL[facility] LABORATORYCLIA [id number] [place] [address] [place] Urea nitrogen [Mass/Vol] 41 mg/dL High 7-21 [facility] Comment on above: Order Comment: Speci men Type: BLOOD SPECIMENOrdering Facility: [facility] Address: [address] [place], [place] [address] Performed By: #### 2 951-2, 85918-5, ####V[facility] LABORATORYCLIA [id number] [place] [address] [place] ECG COMPLETEon 12-05-2024 ECG COMPLETE Normal [facility] Lipase SerPl-cCncon 12-05-19 25 Lipase [Catalytic activity/Vol] 31 U/L Normal 16-61 [facility] Comment on above: Order Comment: Speci men Type: BLOOD SPECIMENOrdering Facility: [facility] Address: [address] [place] [address] Performed By: #### 3 040-3, 02145-6 ####[facility] LABORATORYCLIA [id number] [place] [address] [place] Magnesium SerPl-mCncon 12-05 Magnesium [Mass/Vol] 2.0 mg/dL Normal 1.7-2.3 [facility] Comment on above: Order Comment: Speci men Type: BLOOD SPECIMENOrdering Facility: [facility] Address: [address] [place], [place] [address] Performed By: #### 2 951-2, 49883-0, ####[facility] LABORATORYCLIA [id number] [place] [address] [place] SEPSIS LACTATEon 12-05-2024 Lactate [Moles/Vol] 1.5 mmol/L Normal 0.5-2.0 [facility] Comment on above: Order Comment: Speci men Type: BLOOD SPECIMENOrdering Facility: [facility] Address: [address] [place] [address] Performed By: #### S LACT ####[facility] LABORATORYCLIA [id number] [place] [address] [place] Sodium SerPl-sCncon 12-05-19 25 Sodium [Moles/Vol] 127 mmol/L Low 136-144 [facility] Comment on above: Order Comment: Speci men Type: BLOOD SPECIMENOrdering Facility: [facility] Address: [address] [place] [address] Performed By: #### 2 951-2 ####VILL[facility] LABORATORYCLIA [id number] [place] [address] [place] Sodium [Moles/Vol] 129 mmol/L Low 136-144 [facility] Comment on above: Order Comment: Speci men Type: BLOOD SPECIMENOrdering Facility: [facility] Address: [address] [place] [address] Performed By: #### 2 951-2 ####V[facility] LABORATORYCLIA [id number] [place] [address] [place] Sodium [Moles/Vol] 131 mmol/L Low 136-144 [facility] Comment on above: Order Comment: Speci men Type: BLOOD SPECIMENOrdering Facility: [facility] Address: [address] [place] [address] [place] [address] Performed By: #### 2 951-2, 88635-5, 89434-0 ####[facility] LABORATORYCLIA [id number] [place] [address] [place] THERAPY NTon 12-05-2024 THERAPY NT Normal [facility] XR ABDOMEN 1V SUPINEon 12-05 XR ABDOMEN 1V SUPINE Normal [facility] CASE MANAGEMon 12-04-2024 CASE MANAGEM Normal [facility] CBC W Auto Differential pane l (Bld)on 12-04-2024 Basophils (Bld) [#/Vol] 0.05 10*3/uL Normal <0.11 [facility] Comment on above: Order Comment: Speci men Type: BLOOD SPECIMENOrdering Facility: [facility] Address: [address] [place] [address] Performed By: #### 5 7021-8 ####[facility] LABORATORYCLIA [id number] [place] [address] [place] Basophils/100 WBC (Bld) 0.2 % Normal [place] Comment on above: Order Comment: Speci men Type: BLOOD SPECIMENOrdering Facility: [facility] Address: [address] [place] [address] Performed By: #### 5 7021-8 ####[facility] LABORATORYCLIA [id number] [place] [address] [place] Differential cell count method Nom (Bld) Auto Normal [facility] Comment on above: Order Comment: Speci men Type: BLOOD SPECIMENOrdering Facility: [facility] Address: [address] [place] [address] Performed By: #### 5 7021-8 ####[facility] LABORATORYCLIA [id number] [place] [address] [place] Eosinophils (Bld) [#/Vol] 10*3/uL Normal <0.46 [facility] Comment on above: Order Comment: Speci men Type: BLOOD SPECIMENOrdering Facility: [facility] Address: [address] [place] [address] Performed By: #### 5 7021-8 ####[facility] LABORATORYCLIA [id number] [address] [place] Eosinophils/100 WBC (Bld) 0.1 % Normal [facility] Comment on above: Order Comment: Speci men Type: BLOOD SPECIMENOrdering Facility: [facility] Address: [address] [place] [address] Performed By: #### 5 7021-8 ####[facility] LABORATORYCLIA [id number] [place] [address] [place] Erythrocyte distribution width (RBC) [Ratio] 15.8 % High 11.5-15.0 [facility] Comment on above: Order Comment: Speci men Type: BLOOD SPECIMENOrdering Facility: [facility] Address: [address] [place] [address] Performed By: #### 5 7021-8 ####[facility] LABORATORYCLIA [id number] [place] [address] [place] Hematocrit (Bld) [Volume fraction] 25.9 % Low 36.0-46.0 [facility] Comment on above: Order Comment: Speci men Type: BLOOD SPECIMENOrdering Facility: [facility] Address: [address] [place] [address] Performed By: #### 5 7021-8 ####[facility] LABORATORYCLIA [id number] [place] [address] [place] Hemoglobin (Bld) [Mass/Vol] 8.5 g/dL Low 11.5-15.5 [facility] Comment on above: Order Comment: Speci men Type: BLOOD SPECIMENOrdering Facility: [facility] Address: [address] [place] [address] Performed By: #### 5 7021-8 ####[facility] LABORATORYCLIA [id number] [place] [address] [place] Immature granulocytes (Bld) [#/Vol] 0.27 10*3/uL High <0.10 [facility] Comment on above: Order Comment: Speci men Type: BLOOD SPECIMENOrdering Facility: [facility] Address: [address] [place] [address] Performed By: #### 5 7021-8 ####[facility] LABORATORYCLIA [id number] [place] [address] [place] Immature granulocytes/100 WBC (Bld) 1.3 % Normal [facility] Comment on above: Order Comment: Speci men Type: BLOOD SPECIMENOrdering Facility: [facility] Address: [address] [place] [address] Performed By: #### 5 7021-8 ####[facility] LABORATORYCLIA [id number] [place] [address] [place] Lymphocytes (Bld) [#/Vol] 0.64 10*3/uL Low 1.00-4.00 [facility] Comment on above: Order Comment: Speci men Type: BLOOD SPECIMENOrdering Facility: [facility] Address: [address] [place] [address] Performed By: #### 5 7021-8 ####[facility] LABORATORYCLIA [id number] [address] [place] Lymphocytes/100 WBC (Bld) 3.1 % Normal [facility] Comment on above: Order Comment: Speci men Type: BLOOD SPECIMENOrdering Facility: [facility] Address: [address] [place] [address] Performed By: #### 5 7021-8 ####[facility] LABORATORYCLIA [id number] [address] [place] [facility] MCH (RBC) [Entitic mass] 28.1 pg Normal 26.0-34.0 [facility] Comment on above: Order Comment: Speci men Type: BLOOD SPECIMENOrdering Facility: [facility] Address: [address] [place] [address] Performed By: #### 5 7021-8 ####[facility] LABORATORYCLIA [id number] [address] [place] MCHC (RBC) [Mass/Vol] 32.8 g/dL Normal 30.5-36.0 [facility] Comment on above: Order Comment: Speci men Type: BLOOD SPECIMENOrdering Facility: [facility] Address: [address] [place] [address] Performed By: #### 5 7021-8 ####[facility] LABORATORYCLIA [id number] [address] MCV (RBC) [Entitic vol] 85.8 fL Normal 80.0-100.0 [place] Comment on above: Order Comment: Speci men Type: BLOOD SPECIMENOrdering Facility: [facility] Address: [address] [place] [address] Performed By: #### 5 7021-8 ####[facility] LABORATORYCLIA [id number] [address] Monocytes (Bld) [#/Vol] 1.09 10*3/uL High <0.87 [facility] Comment on above: Order Comment: Speci men Type: BLOOD SPECIMENOrdering Facility: [facility] Address: [address] [place] [address] Performed By: #### 5 7021-8 ####[facility] LABORATORYCLIA [id number] [place] [address] [place] Monocytes/100 WBC (Bld) 5.3 % Normal [place] Comment on above: Order Comment: Speci men Type: BLOOD SPECIMENOrdering Facility: [facility] Address: [address] [place] [address] Performed By: #### 5 7021-8 ####[facility] LABORATORYCLIA [id number] [place] [address] [place] Neutrophils (Bld) [#/Vol] 18.59 10*3/uL High 1.45-7.50 [facility] Comment on above: Order Comment: Speci men Type: BLOOD SPECIMENOrdering Facility: [facility] Address: [address] [place] [address] Performed By: #### 5 7021-8 ####[facility] LABORATORYCLIA [id number] [place] [address] [place] Neutrophils/100 WBC (Bld) 90.0 % Normal [facility] Comment on above: Order Comment: Speci men Type: BLOOD SPECIMENOrdering Facility: [facility] Address: [address] [place] [address] Performed By: #### 5 7021-8 ####[facility] LABORATORYCLIA [id number] [place] [address] [place] Nucleated RBC (Bld) [#/Vol] 10*3/uL Normal <0.01 [facility] Comment on above: Order Comment: Speci men Type: BLOOD SPECIMENOrdering Facility: [facility] Address: [address] [place] [address] Performed By: #### 5 7021-8 ####[facility] LABORATORYCLIA [id number] [place] [address] [place] Nucleated RBC/100 WBC (Bld) [Ratio] 0.0 /100 WBC Normal [facility] Comment on above: Order Comment: Speci men Type: BLOOD SPECIMENOrdering Facility: [facility] Address: [address] [place] [address] Performed By: #### 5 7021-8 ####[facility] LABORATORYCLIA [id number] [place] [id number] [place] Platelet mean volume (Bld) [Entitic vol] 8.7 fL Low 9.0-12.7 [facility] [facility] Comment on above: Order Comment: Speci men Type: BLOOD SPECIMENOrdering Facility: [facility] Address: [address] [place] [address] Performed By: #### 5 7021-8 ####[facility]ORATORYCLIA [id number] [place] [address] [place] Platelets (Bld) [#/Vol] 518 10*3/uL High 150-400 [facility] Comment on above: Order Comment: Speci men Type: BLOOD SPECIMENOrdering Facility: [facility] Address: [address] [place] [address] Performed By: #### 5 7021-8 ####[facility]ORATORYCLIA [id number] [place] [address] [place] RBC (Bld) [#/Vol] 3.02 10*6/uL Low 3.90-5.20 [facility] Comment on above: Order Comment: Speci men Type: BLOOD SPECIMENOrdering Facility: [facility] Address: [address] [place] [address] Performed By: #### 5 7021-8 ####[facility]ORATORYCLIA [id number] [place] [address] [place] WBC (Bld) [#/Vol] 20.66 10*3/uL High 3.70-11.00 [facility] Comment on above: Order Comment: Speci men Type: BLOOD SPECIMENOrdering Facility: [facility] Address: [address] [place] [address] Performed By: #### 5 7021-8 ####[facility]ORYCLIA [id number] [address] CBC W Ordered Manual Differe ntial panel (Bld)on 12-04-2024 Basophils (Bld) [#/Vol] 0.03 10*3/uL Normal <0.11 [facility] Comment on above: Order Comment: Speci men Type: BLOOD SPECIMENOrdering Facility: [facility] Address: [address] [place] [address] Performed By: #### S TFREV ####[facility] LAB[facility] [id number] [place] [address] [place]#### 10826-1 ####[facility]ORYCLIA [id number] [place] [address] [place] Basophils/100 WBC (Bld) 0.2 % Normal [place] Comment on above: Order Comment: Speci men Type: BLOOD SPECIMENOrdering Facility: [facility] Address: [address] [place] [address] Performed By: #### S TFREV ####[facility] LABCL[facility] [id number] [place] [address] [place]#### 07027-0 ####[facility]ATORYCLIA [id number] [place] [address] [place] Differential cell count method Nom (Bld) Auto Normal [facility] Comment on above: Order Comment: Speci men Type: BLOOD SPECIMENOrdering Facility: [facility] Address: [address] [place] [address] Performed By: #### S TFREV ####[facility] LABCL[facility] [id number] [place] [address] [place]#### 94722-9 ####[facility]ORYCLIA [id number] [place] [address] [place] Eosinophils (Bld) [#/Vol] 10*3/uL Normal <0.46 [facility] Comment on above: Order Comment: Speci men Type: BLOOD SPECIMENOrdering Facility: [facility] Address: [address] [place] [address] Performed By: #### S TFREV ####[facility] LABCL[facility] [id number] [place] [address] [place]#### 13213-4 ####[facility]ORATORYCLIA [id number] [place] [address] [place] [facility] Eosinophils/100 WBC (Bld) 0.1 % Normal [facility] Comment on above: Order Comment: Speci men Type: BLOOD SPECIMENOrdering Facility: [facility] Address: [address] [place] [address] Performed By: #### S TFREV ####[facility] LABCL[facility] [id number] [address] [place]#### 84719-3 ####[facility]ATORYCLIA [id number] [place] [address] [place] Erythrocyte distribution width (RBC) [Ratio] 15.9 % High 11.5-15.0 [facility] Comment on above: Order Comment: Speci men Type: BLOOD SPECIMENOrdering Facility: [facility] Address: [address] [place] [address] Performed By: #### S TFREV ####[facility] LABCL[facility] [id number] [place] [address] [place]#### 22188-8 ####[facility]ORYCLIA [id number] [address] [place] Hematocrit (Bld) [Volume fraction] 26.2 % Low 36.0-46.0 [facility] Comment on above: Order Comment: Speci men Type: BLOOD SPECIMENOrdering Facility: [facility] Address: [address] [place] [address] Performed By: #### S TFREV ####[facility] [id number] [place] [address] [place]#### 10679-6 ####[facility]ATORYCLIA [id number] [place] [address] [place] Hemoglobin (Bld) [Mass/Vol] 8.7 g/dL Low 11.5-15.5 [facility] Comment on above: Order Comment: Speci men Type: BLOOD SPECIMENOrdering Facility: [facility] Address: [address] [place] [address] Performed By: #### S TFREV ####[facility] LAB[facility] [id number] [place] [address] [place]#### 26493-8 ####[facility]ATORYCLIA [id number] [place] [address] [place] Immature granulocytes (Bld) [#/Vol] 0.20 10*3/uL High <0.10 [facility] Comment on above: Order Comment: Speci men Type: BLOOD SPECIMENOrdering Facility: [facility] Address: [address] [place] [address] Performed By: #### S TFREV ####[facility] LABCL[facility] [id number] [place] [address] [place]#### 24641-6 ####[facility]ORYCLIA [id number] [place] [address] [place] Immature granulocytes/100 WBC (Bld) 1.3 % Normal [facility] Comment on above: Order Comment: Speci men Type: BLOOD SPECIMENOrdering Facility: [facility] Address: [address] [place] [address] Performed By: #### S TFREV ####[facility] LABCL[facility] [id number] [place] [address] [place]#### 30001-3 ####[facility]ORYCLIA [id number] [place] [address] [place] Lymphocytes (Bld) [#/Vol] 0.56 10*3/uL Low 1.00-4.00 [facility] Comment on above: Order Comment: Speci men Type: BLOOD SPECIMENOrdering Facility: [facility] Address: [address] [place] [address] Performed By: #### S TFREV ####[facility] LABCLIA [id number] [place] [address] [place]#### 50231-3 ####[facility]ORYCLIA [id number] [address] [place] [facility] Lymphocytes/100 WBC (Bld) 3.5 % Normal [facility] Comment on above: Order Comment: Speci men Type: BLOOD SPECIMENOrdering Facility: [facility] Address: [address] [place] [address] Performed By: #### S TFREV ####[facility] LABCLIA [id number] [place] [address] [place]#### 97607-8 ####[facility]ITALCL[facility] [id number] [address] [place] MCH (RBC) [Entitic mass] 28.3 pg Normal 26.0-34.0 [facility] Comment on above: Order Comment: Speci men Type: BLOOD SPECIMENOrdering Facility: [facility] Address: [address] [place] [address] Performed By: #### S TFREV ####[facility] LABCL[facility] [id number] [address] [place]#### 34174-4 ####[facility]ORYCLIA [id number] [address] [place] MCHC (RBC) [Mass/Vol] 33.2 g/dL Normal 30.5-36.0 [facility] Comment on above: Order Comment: Speci men Type: BLOOD SPECIMENOrdering Facility: [facility] Address: [address] [place] [address] Performed By: #### S TFREV ####[facility] LABCLIA [id number] [place] [address] [place]#### 45362-5 ####[facility]ATORYCLIA [id number] [place] [address] [place] MCV (RBC) [Entitic vol] 85.3 fL Normal 80.0-100.0 [place] Comment on above: Order Comment: Speci men Type: BLOOD SPECIMENOrdering Facility: [facility] Address: [address] [place] [address] Performed By: #### S TFREV ####[facility] LABCL[facility] [id number] [place] [address] [place] [facility] [place]#### 62105-0 ####[facility]ATORYCLIA [id number] [place] [address] [place] Monocytes (Bld) [#/Vol] 0.74 10*3/uL Normal <0.87 [facility] Comment on above: Order Comment: Speci men Type: BLOOD SPECIMENOrdering Facility: [facility] Address: [address] [place] [address] Performed By: #### S TFREV ####[facility] LABCL[facility] [id number] [address] [place]#### 32619-2 ####[facility]ATORYCLIA [id number] [address] [place] Monocytes/100 WBC (Bld) 4.6 % Normal [place] Comment on above: Order Comment: Speci men Type: BLOOD SPECIMENOrdering Facility: [facility] Address: [address] [place] [address] Performed By: #### S TFREV ####[facility]CL[facility] [id number] [place] [address] [place]#### 47684-7 ####[facility]ATORYCLIA [id number] [place] [address] [place] Neutrophils (Bld) [#/Vol] 14.38 10*3/uL High 1.45-7.50 [facility] Comment on above: Order Comment: Speci men Type: BLOOD SPECIMENOrdering Facility: [facility] Address: [address] [place] [address] Performed By: #### S TFREV ####[facility] LABCL[facility] [id number] [place] [address] [place]#### 01866-3 ####[facility]ATORYCLIA [id number] [address] [place] Neutrophils/100 WBC (Bld) 90.3 % Normal [facility] Comment on above: Order Comment: Speci men Type: BLOOD SPECIMENOrdering Facility: [facility] Address: [address] [place] [address] Performed By: #### S TFREV ####[facility]CL[facility] [id number] [place] [address] [place]#### 39268-5 ####[facility]ORYCLIA [id number] [place] [address] [place] Nucleated RBC (Bld) [#/Vol] 10*3/uL Normal <0.01 [facility] Comment on above: Order Comment: Speci men Type: BLOOD SPECIMENOrdering Facility: [facility] Address: [address] [place] [address] Performed By: #### S TFREV ####[facility]CL[facility] [id number] [place] [address] [place]#### 93376-3 ####[facility]ORYCLIA [id number] [address] [place] Nucleated RBC/100 WBC (Bld) [Ratio] 0.0 /100 WBC Normal [facility] Comment on above: Order Comment: Speci men Type: BLOOD SPECIMENOrdering Facility: [facility] Address: [facility] [place] [address] Performed By: #### S TFREV ####[facility] LABCL[facility] [id number] [place] [address] [place]#### 29950-5 ####[facility]ORYCLIA [id number] [place] [address] [place] Platelet mean volume (Bld) [Entitic vol] 8.8 fL Low 9.0-12.7 [facility] Comment on above: Order Comment: Speci men Type: BLOOD SPECIMENOrdering Facility: [facility] Address: [address] [place] [address] Performed By: #### S TFREV ####[facility]CL[facility] [id number] [place] [address] [place]#### 52429-9 ####[facility]ORYCLIA [id number] [place] [address] [place] Platelets (Bld) [#/Vol] 512 10*3/uL High 150-400 [facility] Comment on above: Order Comment: Speci men Type: BLOOD SPECIMENOrdering Facility: [facility] Address: [address] [place] [address] Performed By: #### S TFREV ####[facility] [id number] [place] [address] [place]#### 42598-2 ####[facility]ORYCLIA [id number] [place] [address] [place] RBC (Bld) [#/Vol] 3.07 10*6/uL Low 3.90-5.20 [facility] Comment on above: Order Comment: Speci men Type: BLOOD SPECIMENOrdering Facility: [facility] Address: [address] [place] [address] Performed By: #### S TFREV ####[facility] [id number] [place] [address] [place]#### 90497-0 ####[facility]ORYCLIA [id number] [place] [address] [place] WBC (Bld) [#/Vol] 15.92 10*3/uL High 3.70-11.00 [facility] Comment on above: Order Comment: Speci men Type: BLOOD SPECIMENOrdering Facility: [facility] Address: [address] [place] [address] Performed By: #### S TFREV ####[facility] [id number] [address] [facility] [id number] [id number] [place]#### 57733-1 ####[facility]ORATORYCLIA [id number] [place] [address] [place] CONSULTon 12-04-2024 CONSULT Normal [facility] CONSULT PROGon 12-04-2024 CONSULT [facility] CONSULT PROG Normal [facility] CONSULT [facility] Comprehensive metabolic 2000 panelon 12-04-2024 Albumin [Mass/Vol] 2.5 g/dL Low 3.9-4.9 [facility] Comment on above: Order Comment: Speci men Type: BLOOD SPECIMENOrdering Facility: [facility] Address: [address] [place], [place] [address] [address] Performed By: #### 2 4323-8, , 2950-12 ####[facility]ORATORYCLIA [id number] [place] [address] [place] ALP [Catalytic activity/Vol] 112 U/L Normal 34-123 [facility] Comment on above: Order Comment: Speci men Type: BLOOD SPECIMENOrdering Facility: [facility] Address: [address] [place] [address] Performed By: #### 2 4323-8, , 2950-2 ####[facility]ORATORYCLIA [id number] [place] [id number] [place] ALT [Catalytic activity/Vol] U/L Low 7-38 [facility] Comment on above: Order Comment: Speci men Type: BLOOD SPECIMENOrdering Facility: [facility] Address: [facility] [place] [address] Performed By: #### 2 4323-8, , 2950-2 ####[facility]ORATORYCLIA [id number] [place] [id number] [place] Anion gap [Moles/Vol] 10 mmol/L Normal 8-15 [facility] Comment on above: Order Comment: Speci men Type: BLOOD SPECIMENOrdering Facility: [facility] Address: [address] [place] [address] Performed By: #### 2 4323-8, , 2950-12 ####[facility]ATORYCLIA [id number] [place] [address] [place] AST [Catalytic activity/Vol] 31 U/L Normal 13-35 [facility] Comment on above: Order Comment: Speci men Type: BLOOD SPECIMENOrdering Facility: [facility] Address: [address] [place] [address] Performed By: #### 2 4323-8, , 2950-12 ####[facility]ATORYCLIA [id number] [place] [address] [place] Bilirubin [Mass/Vol] mg/dL Low 0.2-1.3 [facility] Comment on above: Order Comment: Speci men Type: BLOOD SPECIMENOrdering Facility: [facility] Address: [facility] [place] [address] Performed By: #### 2 3-8, , 2950-12 ####[facility]ORATORYCLIA [id number] [address] [place] Calcium [Mass/Vol] 9.7 mg/dL Normal 8.5-10.2 [facility] Comment on above: Order Comment: Speci men Type: BLOOD SPECIMENOrdering Facility: [facility] Address: [address] [facility] [place] [address] Performed By: #### 2 4323-8, , 2950-12 ####[facility]ORATORYCLIA [id number] [place] [address] [place] Chloride [Moles/Vol] 95 mmol/L Low 98-107 [facility] Comment on above: Order Comment: Speci men Type: BLOOD SPECIMENOrdering Facility: [facility] Address: [address] [place] [address] [place] [address] Performed By: #### 2 4323-8, , 2950-2 ####[facility] LABORATORYCLIA [id number] [place] [address] [place] CO2 [Moles/Vol] 27 mmol/L Normal 22-30 [facility] Comment on above: Order Comment: Speci halina Type: BLOOD SPECIMENOrdering Facility: [facility] Address: [address] [place] [address] Performed By: #### 2 4323-8, 43683-8, 295-2 ####[facility]ORATORYCLIA [id number] [place] [id number] [place] [facility] Creatinine [Mass/Vol] 0.84 mg/dL Normal 0.58-0.96 [facility] Comment on above: Order Comment: Speci men Type: BLOOD SPECIMENOrdering Facility: [facility] Address: [address] [place] [address] Performed By: #### 2 4323-8, 15195-2, 2950-2 ####[facility]ORATORYCLIA [id number] [address] Creatinine and Glomerular filtration rate.predicted panel (S/P/Bld) 67 mL/min/1.73m??? Normal >=60 [facility] Comment on above: Order Comment: Specleroy meade Type: BLOOD SPECIMENOrdering Facility: [facility] Address: [address] [place] [address] Result Comment: Hilda mated Glomerular Filtration Rate [...] actual GFR. Performed By: #### 2 4323-8, 55511-3, 2950-2 ####[facility]ORATORYCLIA [id number] [place] [id number] [place] Glucose [Mass/Vol] 60 mg/dL Low 74-99 [facility] Comment on above: Order Comment: Speci halina Type: BLOOD SPECIMENOrdering Facility: [facility] Address: [address] [place] [address] Result Comment: The [place] Diabetes Association (ADA) provides guidance for cutoff [...] Standards of Medical Care in Diabetes 2016, [place] [employer] Association. Diabetes Care. 2016.39(Suppl 1). Performed By: #### 2 4323-8, , 2950-12 ####[facility]ORATORYCLIA [id number] [place] [address] [place] Potassium [Moles/Vol] 4.6 mmol/L Normal 3.7-5.1 [facility] Comment on above: Order Comment: Fan meade Type: BLOOD SPECIMENOrdering Facility: [facility] Address: [address] [place] [address] Performed By: #### 2 4323-8, , 2950-12 ####[facility]ORATORYCLIA [id number] [place] [address] [place] Protein [Mass/Vol] 5.9 g/dL Low 6.3-8.0 [facility] Comment on above: Order Comment: Fan meade Type: BLOOD SPECIMENOrdering Facility: [facility] Address: [address] [place] [address] Performed By: #### 2 4323-8, , 2 ####[facility]ORATORYCLIA [id number] [place] [address] [place] Urea nitrogen [Mass/Vol] 37 mg/dL High 7-21 [facility] Comment on above: Order Comment: Fan meade Type: BLOOD SPECIMENOrdering Facility: [facility] Address: [address] [place] [address] Performed By: #### 2 4323-8, , 1-2 ####[facility] LABORATORYCLIA [id number] [place] [address] [place] Creatinine Unsp time (U) [Ma ss/Vol]on 12-04-2024 Creatinine (U) [Mass/Vol] 41.7 mg/dL Normal 20.0-300.0 [facility] Comment on above: Order Comment: Speci men Type: URINE SPECIMENOrdering Facility: [facility] Address: [address] [place] [address] Performed By: #### 3 5678-2, 76496-6, 75333-7 ####[facility] LABCLIA [id number] [place] [address] [place] Magnesium SerPl-mCncon 12-04 Magnesium [Mass/Vol] 2.0 mg/dL Normal 1.7-2.3 [facility] Comment on above: Order Comment: Speci men Type: BLOOD SPECIMENOrdering Facility: [facility] Address: [address] [place] [address] Performed By: #### 2 4323-8, 19374-1, 2951-2 ####[facility]ATORYCLIA [id number] [place] [address] [place] NUTRITIONon 12-04-2024 NUTRITION Normal [facility] Osmolality Uron 12-04-2024 Osmolality (U) [Osmolality] 412 mosm/kg Normal 50-1200 [facility] Comment on above: Order Comment: Speci men Type: URINE SPECIMENOrdering Facility: [facility] Address: [address] [place] [address] Performed By: #### 2 695-5 ####[facility] LAB[facility] [id number] [place] [address] [place] PATHOLOGIST INTERPRETATION C BC/DIFFon 12-04-2024 Upholstery Repairer review Mckay (Unsp spec) [Interp] No review performed. Normal [facility] Comment on above: Order Comment: Speci men Type: BLOOD SPECIMENOrdering Facility: [facility] Address: [address] [place] [address] Performed By: #### S TFREV ####[facility] [id number] [place] [address] [place]#### 45547-2 ####[facility]ORATORYCLIA [id number] [address] STAFF REVIEW, CBCDIF Normal [facility] Comment on above: Order Comment: Speci men Type: BLOOD SPECIMENOrdering Facility: [facility] Address: [address] [place] [address] Performed By: #### S TFREV ####[facility] [id number] [address] [place]#### 03399-2 ####[facility]ATORYCLIA [id number] [address] PT panel Coag (PPP)on 2024 INR Coag (PPP) [Relative time] 1.0 {INR} Normal 0.9-1.3 [facility] Comment on above: Order Comment: Speci halina Type: BLOOD SPECIMENOrdering Facility: [facility] Address: [address] [place] [address] Result Comment: Kendra min K Antagonist (VKA) Therapeutic Range: INR 2 to 3 (Target INR of 2.5)Note: For patients treated with VKA drugs, such as warfarin, the [place] [employer] 2012 Guideline recommends [...] of 3).Norma GH, et al. Chest 2012, 141:7S-47SNishkaylah RA, et al. JACC 2017, 70: 252-289 Performed By: #### 3 4528-0 ####[facility]ORATORYCLIA [id number] [place] [address] [place] PT Coag (PPP) [Time] 10.6 s Normal 9.7-13.0 [facility] Comment on above: Order Comment: Speci men Type: BLOOD SPECIMENOrdering Facility: [facility] Address: [address] [place] [address] Performed By: #### 3 4528-0 ####[facility]ORATORYCLIA [id number] [place] [address] [place] Potassium ?Tm Ur-sCncon 11-15 Potassium Unsp time (U) [Moles/Vol] 41.7 mmol/L Normal 10.0-160.0 [facility] Comment on above: Order Comment: Speci men Type: URINE SPECIMENOrdering Facility: [facility] Address: [address] [place] [address] Performed By: #### 3 5678-2, 47081-3, 52519-9 ####[facility] LABCL[facility] [id number] [place] [address] [place] Sodium ?Tm Ur-sCncon 025 Sodium Unsp time (U) [Moles/Vol] <20 Normal 14-216 [facility] Comment on above: Order Comment: Speci men Type: URINE SPECIMENOrdering Facility: [facility] Address: [address] [place] [address] Performed By: #### 3 5678-2, 04155-5, 85641-8 ####[facility] [id number] [place] [address] [place] Sodium SerPl-sCncon 12-04-19 25 Sodium [Moles/Vol] 128 mmol/L Low 136-144 [facility] Comment on above: Order Comment: Speci men Type: BLOOD SPECIMENOrdering Facility: [facility] Address: [address] [place] [address] Performed By: #### 2 951-2 ####[facility]ORY[facility] [id number] [place] [address] [place] Sodium [Moles/Vol] 133 mmol/L Low 136-144 [facility] Comment on above: Order Comment: Speci men Type: BLOOD SPECIMENOrdering Facility: [facility] Address: [address] [place] [address] Performed By: #### 2 951-2 ####[facility] LABORATORYCLIA [id number] [place] [address] [place] Sodium [Moles/Vol] 130 mmol/L Low 136-144 [facility] Comment on above: Order Comment: Speci men Type: BLOOD SPECIMENOrdering Facility: [facility] Address: [address] [place] [address] Performed By: #### 2 951-2 ####[facility] LABORATORYCLIA [id number] [place] [address] [place] Sodium [Moles/Vol] 132 mmol/L Low 136-144 [facility] Comment on above: Order Comment: Speci men Type: BLOOD SPECIMENOrdering Facility: [facility] Address: [address] [place] [address] Performed By: #### 2 4323-8, 21839-0, 2951-2 ####[facility] LABORATORYCLIA [id number] [place] [address] [place] Sodium [Moles/Vol] 132 mmol/L Low 136-144 [facility] Comment on above: Order Comment: Speci men Type: BLOOD SPECIMENOrdering Facility: [facility] Address: [address] [place] [address] Performed By: #### 2 951-2 ####[facility] LABORATORYCLIA [id number] [place] [address] [place] THERAPY NTon 12-04-2024 THERAPY NT Normal [facility] ALLIED HEALTHon 12-03-2024 ALLIED HEALTH Normal [facility] RUBEN BY IFA SCREENon 12-03-19 25 Nuclear Ab pattern (S) [Interp] Nuclear homogeneous Normal [facility] Comment on above: Order Comment: Speci men Type: BLOOD SPECIMENOrdering Facility: [facility] Address: [address] [place] [address] Performed By: #### A NAIFS ####[facility] LABCLIA [id number] [place] [address] [place] Nuclear Ab Ql (S) Positive Abnormal Negative [facility] Comment on above: Order Comment: Speci men Type: BLOOD SPECIMENOrdering Facility: [facility] Address: [address] [place] [address] Result Comment: Anti -nuclear antibody test is used as an aid in diagnosis of systemic autoimmune diseases. Where positive and clinically warranted, follow-up using disease-specific testing is recommended. Low positive titers are not uncommon with advanced age, certain chronic infections, and malignancies among others.Test methodology: Indirect fluorescence immunoassay (IFA) using HEp-2 cells.1:160 Performed By: #### A NAIFS ####[facility] LABCLIA [id number] [place] [address] [place] CASE MANAGEMon 12-03-2024 CASE MANAGEM Normal [facility] CBC W Auto Differential pane l (Bld)on 12-03-2024 Basophils (Bld) [#/Vol] 0.06 10*3/uL Normal <0.11 [facility] Comment on above: Order Comment: Speci men Type: BLOOD SPECIMENOrdering Facility: [facility] Address: [address] [place] [address] Performed By: #### 5 7021-8 ####[facility] LABORATORYCLIA [id number] [place] [address] [place] Basophils/100 WBC (Bld) 0.3 % Normal [place] Comment on above: Order Comment: Speci men Type: BLOOD SPECIMENOrdering Facility: [facility] Address: [address] [place] [address] Performed By: #### 5 7021-8 ####[facility] LABORATORYCLIA [id number] [place] [address] [place] Differential cell count method Nom (Bld) Auto Normal [facility] Comment on above: Order Comment: Speci men Type: BLOOD SPECIMENOrdering Facility: [facility] Address: [address] [place] [address] Performed By: #### 5 7021-8 ####[facility] LABORATORYCLIA [id number] [place] [address] [place] Eosinophils (Bld) [#/Vol] 0.18 10*3/uL Normal <0.46 [facility] Comment on above: Order Comment: Speci men Type: BLOOD SPECIMENOrdering Facility: [facility] Address: [address] [place] [address] Performed By: #### 5 7021-8 ####[facility] LABORATORYCLIA [id number] [address] [place] Eosinophils/100 WBC (Bld) 0.9 % Normal [facility] Comment on above: Order Comment: Speci men Type: BLOOD SPECIMENOrdering Facility: [facility] Address: [address] [place] [address] Performed By: #### 5 7021-8 ####[facility] LABORATORYCLIA [id number] [address] [place] Erythrocyte distribution width (RBC) [Ratio] 15.6 % High 11.5-15.0 [facility] Comment on above: Order Comment: Speci men Type: BLOOD SPECIMENOrdering Facility: [facility] Address: [address] [place] [address] Performed By: #### 5 7021-8 ####[facility] LABORATORYCLIA [id number] [address] [place] Hematocrit (Bld) [Volume fraction] 26.0 % Low 36.0-46.0 [facility] Comment on above: Order Comment: Speci men Type: BLOOD SPECIMENOrdering Facility: [facility] Address: [address] [place] [address] Performed By: #### 5 7021-8 ####[facility] LABORATORYCLIA [id number] [address] [place] Hemoglobin (Bld) [Mass/Vol] 8.5 g/dL Low 11.5-15.5 [facility] Comment on above: Order Comment: Speci men Type: BLOOD SPECIMENOrdering Facility: [facility] Address: [address] [place] [address] Performed By: #### 5 7021-8 ####[facility] LABORATORYCLIA [id number] [address] Immature granulocytes (Bld) [#/Vol] 0.29 10*3/uL High <0.10 [facility] Comment on above: Order Comment: Speci men Type: BLOOD SPECIMENOrdering Facility: [facility] Address: [address] [place] [address] Performed By: #### 5 7021-8 ####[facility] LABORATORYCLIA [id number] [address] Immature granulocytes/100 WBC (Bld) 1.5 % Normal [facility] Comment on above: Order Comment: Speci men Type: BLOOD SPECIMENOrdering Facility: [facility] Address: [address] [place] [address] Performed By: #### 5 7021-8 ####[facility] LABORATORYCLIA [id number] [address] [place] Lymphocytes (Bld) [#/Vol] 0.75 10*3/uL Low 1.00-4.00 [facility] Comment on above: Order Comment: Speci men Type: BLOOD SPECIMENOrdering Facility: [facility] Address: [address] [place] [address] Performed By: #### 5 7021-8 ####[facility] LABORATORYCLIA [id number] [address] Lymphocytes/100 WBC (Bld) 3.8 % Normal [facility] Comment on above: Order Comment: Speci men Type: BLOOD SPECIMENOrdering Facility: [facility] Address: [address] [place] [address] Performed By: #### 5 7021-8 ####[facility] LABORATORYCLIA [id number] [place] [address] [place] MCH (RBC) [Entitic mass] 28.5 pg Normal 26.0-34.0 [facility] Comment on above: Order Comment: Speci men Type: BLOOD SPECIMENOrdering Facility: [facility] Address: [address] [place] [address] Performed By: #### 5 7021-8 ####[facility] LABORATORYCLIA [id number] [address] [place] MCHC (RBC) [Mass/Vol] 32.7 g/dL Normal 30.5-36.0 [facility] Comment on above: Order Comment: Speci men Type: BLOOD SPECIMENOrdering Facility: [facility] Address: [address] [place] [address] Performed By: #### 5 7021-8 ####[facility] LABORATORYCLIA [id number] [address] [place] MCV (RBC) [Entitic vol] 87.2 fL Normal 80.0-100.0 [place] Comment on above: Order Comment: Speci men Type: BLOOD SPECIMENOrdering Facility: [facility] Address: [address] [place] [address] Performed By: #### 5 7021-8 ####[facility] LABORATORYCLIA [id number] [place] [address] [place] Monocytes (Bld) [#/Vol] 0.93 10*3/uL High <0.87 [facility] Comment on above: Order Comment: Speci men Type: BLOOD SPECIMENOrdering Facility: [facility] Address: [address] [place] [address] Performed By: #### 5 7021-8 ####[facility] LABORATORYCLIA [id number] [address] Monocytes/100 WBC (Bld) 4.7 % Normal [place] Comment on above: Order Comment: Speci men Type: BLOOD SPECIMENOrdering Facility: [facility] Address: [address] [place] [address] Performed By: #### 5 7021-8 ####[facility] LABORATORYCLIA [id number] [place] [address] [place] Neutrophils (Bld) [#/Vol] 17.78 10*3/uL High 1.45-7.50 [facility] Comment on above: Order Comment: Speci men Type: BLOOD SPECIMENOrdering Facility: [facility] Address: [address] [place] [address] Performed By: #### 5 7021-8 ####[facility] LABORATORYCLIA [id number] [address] [place] Neutrophils/100 WBC (Bld) 88.8 % Normal [facility] Comment on above: Order Comment: Speci men Type: BLOOD SPECIMENOrdering Facility: [facility] Address: [address] [place] [address] Performed By: #### 5 7021-8 ####[facility] LABORATORYCLIA [id number] [place] [address] [place] Nucleated RBC (Bld) [#/Vol] 10*3/uL Normal <0.01 [facility] Comment on above: Order Comment: Speci men Type: BLOOD SPECIMENOrdering Facility: [facility] Address: [address] [place] [address] Performed By: #### 5 7021-8 ####[facility] LABORATORYCLIA [id number] [place] [address] [place] Nucleated RBC/100 WBC (Bld) [Ratio] 0.0 /100 WBC Normal [facility] Comment on above: Order Comment: Speci men Type: BLOOD SPECIMENOrdering Facility: [facility] Address: [address] [place] [address] Performed By: #### 5 7021-8 ####[facility] LABORATORYCLIA [id number] [place] [address] [place] Platelet mean volume (Bld) [Entitic vol] 8.6 fL Low 9.0-12.7 [facility] Comment on above: Order Comment: Speci men Type: BLOOD SPECIMENOrdering Facility: [facility] Address: [address] [place] [address] Performed By: #### 5 7021-8 ####[facility] LABORATORYCLIA [id number] [place] [address] [place] Platelets (Bld) [#/Vol] 442 10*3/uL High 150-400 [facility] Comment on above: Order Comment: Speci men Type: BLOOD SPECIMENOrdering Facility: [facility] Address: [address] [place] [address] Performed By: #### 5 7021-8 ####[facility]ORATORYCLIA [id number] [place] [address] [place] RBC (Bld) [#/Vol] 2.98 10*6/uL Low 3.90-5.20 [facility] Comment on above: Order Comment: Speci men Type: BLOOD SPECIMENOrdering Facility: [facility] Address: [address] [place] [address] Performed By: #### 5 7021-8 ####[facility] LABORATORYCLIA [id number] [address] [place] WBC (Bld) [#/Vol] 19.99 10*3/uL High 3.70-11.00 [facility] Comment on above: Order Comment: Speci men Type: BLOOD SPECIMENOrdering Facility: [facility] Address: [address] [place] [address] Performed By: #### 5 7021-8 ####[facility] LABORATORYCLIA [id number] [address] [place] CONSULTon 12-03-2024 CONSULT Normal [facility] CONSULT Normal [facility] CONSULT PROGon 12-03-2024 CONSULT PROG Normal [facility] CONSULT PROG Normal [facility] CONSULT PROG Normal [facility] CRP SerPl-mCncon 12-03-2024 CRP [Mass/Vol] 20.0 mg/dL High <0.9 [facility] Comment on above: Order Comment: Speci men Type: BLOOD SPECIMENOrdering Facility: [facility] Address: [address] [place], [place] [address] Performed By: #### 1 988-5, 24605-9, 25108-6 ####[facility]ORATORYCLIA [id number] [place] [address] [place] CHEST WO IVCONon 12-03-19 CT CHEST WO IVCON Invalid Interpretation Code [facility] Comprehensive metabolic 2000 panelon 12-03-2024 Albumin [Mass/Vol] 2.5 g/dL Low 3.9-4.9 [facility] Comment on above: Order Comment: Speci men Type: BLOOD SPECIMENOrdering Facility: [facility] Address: [address] [place] [address] Performed By: #### 1 988-5, 59569-5, ####[facility] LABORATORYCLIA [id number] [place] [address] [place] ALP [Catalytic activity/Vol] 93 U/L Normal 34-123 [facility] Comment on above: Order Comment: Speci men Type: BLOOD SPECIMENOrdering Facility: [facility] Address: [address] [place] [address] Performed By: #### 1 988-5, 50142-9, ####[facility] LABORATORYCLIA [id number] [address] ALT [Catalytic activity/Vol] U/L Low 7-38 [facility] Comment on above: Order Comment: Speci men Type: BLOOD SPECIMENOrdering Facility: [facility] Address: [address] [place] [address] Performed By: #### 1 988-5, 50174-0, ####[facility] LABORATORYCLIA [id number] [address] Anion gap [Moles/Vol] 10 mmol/L Normal 8-15 [facility] Comment on above: Order Comment: Speci men Type: BLOOD SPECIMENOrdering Facility: [facility] Address: [address] [place] [address] Performed By: #### 1 988-5, 14792-5, ####[facility] LABORATORYCLIA [id number] [place] [id number] [place] [facility] AST [Catalytic activity/Vol] 15 U/L Normal 13-35 [facility] Comment on above: Order Comment: Speci men Type: BLOOD SPECIMENOrdering Facility: [facility] Address: [address] [place] [address] Performed By: #### 1 988-5, , ####[facility] LABORATORYCLIA [id number] [place] [address] [place] Bilirubin [Mass/Vol] 0.2 mg/dL Normal 0.2-1.3 [facility] Comment on above: Order Comment: Speci men Type: BLOOD SPECIMENOrdering Facility: [facility] Address: [address] [place] [address] Performed By: #### 1 988-5, , ####[facility] LABORATORYCLIA [id number] [place] [address] [place] Calcium [Mass/Vol] 9.2 mg/dL Normal 8.5-10.2 [facility] Comment on above: Order Comment: Speci men Type: BLOOD SPECIMENOrdering Facility: [facility] Address: [address] [place] [address] Performed By: #### 1 988-5, , ####[facility] LABORATORYCLIA [id number] [place] [address] [place] Chloride [Moles/Vol] 94 mmol/L Low 98-107 [facility] Comment on above: Order Comment: Speci men Type: BLOOD SPECIMENOrdering Facility: [facility] Address: [address] [place] [address] Performed By: #### 1 988-5, , ####[facility] LABORATORYCLIA [id number] [place] [id number] [place] CO2 [Moles/Vol] 24 mmol/L Normal 22-30 [facility] Comment on above: Order Comment: Speci men Type: BLOOD SPECIMENOrdering Facility: [facility] Address: [address] [place] [address] Performed By: #### 1 988-5, , ####[facility] LABORATORYCLIA [id number] [place] [address] [place] Creatinine [Mass/Vol] 0.92 mg/dL Normal 0.58-0.96 [facility] Comment on above: Order Comment: Fan meade Type: BLOOD SPECIMENOrdering Facility: [facility] Address: [address] [place] [address] Performed By: #### 1 988-5, 36950-3, 80688-9 ####[facility] LABORATORYCLIA [id number] [place] [id number] [place] Creatinine and Glomerular filtration rate.predicted panel (S/P/Bld) 60 mL/min/1.73m??? Normal >=60 [facility] Comment on above: Order Comment: Fan [place] Type: BLOOD SPECIMENOrdering Facility: [facility] Address: [address] [place] [address] Result Comment: Hilda mated Glomerular Filtration Rate [...] actual GFR. Performed By: #### 1 988-5, 04932-3, 93238-3 ####[facility] LABORATORYCLIA [id number] [place] [id number] [place] Glucose [Mass/Vol] 246 mg/dL High 74-99 [facility] Comment on above: Order Comment: Fan meade Type: BLOOD SPECIMENOrdering Facility: [facility] Address: [address] [place] [address] Result Comment: The [place] [employer] Association (ADA) provides guidance for cutoff [...] Standards of Medical Care in Diabetes 2016, [place] [employer]. Diabetes Care. 2016.39(Suppl 1). Performed By: #### 1 988-5, 10695-3, 66213-7 ####[facility] LABORATORYCLIA [id number] [place] [address] [place] Potassium [Moles/Vol] 4.6 mmol/L Normal 3.7-5.1 [facility] Comment on above: Order Comment: Speci men Type: BLOOD SPECIMENOrdering Facility: [facility] Address: [address] [place] [address] Performed By: #### 1 988-5, 52032-6, ####[facility] LABORATORYCLIA [id number] [place] [address] [place] Protein [Mass/Vol] 5.7 g/dL Low 6.3-8.0 [facility] Comment on above: Order Comment: Speci men Type: BLOOD SPECIMENOrdering Facility: [facility] Address: [address] [place] [address] Performed By: #### 1 988-5, 42556-1, ####[facility] LABORATORYCLIA [id number] [place] [address] [place] Sodium [Moles/Vol] 128 mmol/L Low 136-144 [facility] Comment on above: Order Comment: Speci men Type: BLOOD SPECIMENOrdering Facility: [facility] Address: [address] [place] [address] Performed By: #### 1 988-5, , ####[facility] LABORATORYCLIA [id number] [place] [address] [place] Urea nitrogen [Mass/Vol] 37 mg/dL High 7-21 [facility] Comment on above: Order Comment: Speci men Type: BLOOD SPECIMENOrdering Facility: [facility] Address: [address] [place] [address] Performed By: #### 1 988-5, 29540-4, 15976-8 ####[facility] LABORATORYCLIA [id number] [place] [address] [place] Cyclic citrullinated peptide IgG Qnon 12-03-2024 CCP ANTIBODY IGG QUALITATIVE Negative Normal Negative [facility] Comment on above: Order Comment: Speci men Type: BLOOD SPECIMENOrdering Facility: [facility] Address: [address] [place] [address] Performed By: #### 3 3935-8 ####[facility] LABCLIA [id number] [place] [address] [place] ESR Westergren method (Bld) [Velocity]on 12-03-2024 ESR (Bld) [Velocity] 124 mm/h High 0-20 [facility] Comment on above: Order Comment: Speci men Type: BLOOD SPECIMENOrdering Facility: [facility] Address: [address] [place] [address] Performed By: #### 4 537-7 ####[facility] LABCLIA [id number] [place] [address] [place] Magnesium SerPl-mCncon 12-03 Magnesium [Mass/Vol] 1.8 mg/dL Normal 1.7-2.3 [facility] Comment on above: Order Comment: Speci men Type: BLOOD SPECIMENOrdering Facility: [facility] Address: [address] [place] [address] Performed By: #### 1 988-5, 36765-2, 23400-0 ####[facility] LABORATORYCLIA [id number] [place] [address] [place] Rheumatoid fact SerPl-aCncon 12-03-2024 Rheumatoid factor Qn 19 [IU]/mL High <16 [facility] Comment on above: Order Comment: Speci men Type: BLOOD SPECIMENOrdering Facility: [facility] Address: [address] [place] [address] Performed By: #### 1 1572-5 ####[facility] LABCLIA [id number] [place] [address] [place] Sodium SerPl-sCncon 12-03-19 Sodium [Moles/Vol] 129 mmol/L Low 136-144 [facility] Comment on above: Order Comment: Speci men Type: BLOOD SPECIMENOrdering Facility: [facility] Address: [address] [place] [address] Performed By: #### 2 951-2 ####[facility] LABORATORYCLIA [id number] [address] OF [facility] Sodium [Moles/Vol] 130 mmol/L Low 136-144 [facility] Comment on above: Order Comment: Speci men Type: BLOOD SPECIMENOrdering Facility: [facility] Address: [address] [place] [address] Performed By: #### 2 951-2 ####[facility] LABORATORYCLIA [id number] [address] OF [facility] Sodium [Moles/Vol] 128 mmol/L Low 136-144 [facility] Comment on above: Order Comment: Speci men Type: BLOOD SPECIMENOrdering Facility: [facility] Address: [address] [place] [address] Performed By: #### 2 951-2 ####[facility] LABORATORYCLIA [id number] [place] [address] [place] THERAPY NTon 12-03-2024 THERAPY NT Normal [facility] THERAPY NT Normal [facility] THERAPY NT Normal [facility] cCP IgG SerPl-aCncon 025 Cyclic citrullinated peptide IgG Qn <15 Normal <20 [facility] Comment on above: Order Comment: Speci men Type: BLOOD SPECIMENOrdering Facility: [facility] Address: [address] [place] [address] Performed By: #### 3 3935-8 ####[facility] LABCLIA [id number] [facility] [id number] [place] [address] [place] 25(OH)D3 SerPl-mCncon 2024 25-hydroxyvitamin D3 [Mass/Vol] 13.4 ng/mL Low 31.0-80.0 [facility] Comment on above: Order Comment: Speci men Type: BLOOD SPECIMENOrdering Facility: [facility] Address: [address] [place] [address] Result Comment: Clas sification of 25 [place] Vitamin D status:Deficiency/Insufficiency: < or = 30 ng/ml.Sufficiency/Optimal Levels: 31-80 ng/mLToxicity: > 100 ng/mL.Test performed by chemiluminescent immunoassay. Performed By: #### 1 989-3, 54013-1, 86242-0, [facility], 6969-0 ####[facility] LABCLIA [id number] [address] OF [facility] ALLIED HEALTHon 12-02-2024 [facility] Normal [facility] ARTERIAL BLOOD GASESon 12-02 Base excess Calc (Bld) [Moles/Vol] 4 mmol/L High 0-2 [facility] Comment on above: Order Comment: Speci men Type: ARTERIAL BLOOD SPECIMENOrdering Facility: [facility] Address: [address] [place] [address] Performed By: #### A LLBG ####[facility]ATORYR[facility] [id number] [facility] RESPIRAT[facility] [id number] [place] [id number] Carboxyhemoglobin (BldA) [Mass fraction] 1.4 % Normal 0.0-2.0 [facility] Comment on above: Order Comment: Speci men Type: ARTERIAL BLOOD SPECIMENOrdering Facility: [facility] Address: [address] [place] [address] Result Comment: Carb oxyhemoglobin Reference Range for Smokers: 2.0-8.0% Performed By: #### A LLBG ####[facility]ORYR[facility] [id number] [facility]IR[facility] [id number] [address] CO2 (Bld) [Partial pressure] 41 mm Hg Normal 36-46 [facility] Comment on above: Order Comment: Speci men Type: ARTERIAL BLOOD SPECIMENOrdering Facility: [facility] [facility] Address: [address] [place] [address] Performed By: #### A LLBG ####[facility] [id number] [facility]AT[facility] [id number] [address] [address] CO2 adjusted to patient's actual temperature (Bld) [Partial pressure] Normal [facility] Comment on above: Order Comment: Speci men Type: ARTERIAL BLOOD SPECIMENOrdering Facility: [facility] Address: [address] [place] [address] Performed By: #### A LLBG ####[facility] RESPIRATORYCLIA [id number] [facility] [id number] [address] [address] HCO3 (Bld) [Moles/Vol] 28 mmol/L High 22-26 [facility] Comment on above: Order Comment: Speci men Type: ARTERIAL BLOOD SPECIMENOrdering Facility: [facility] Address: [address] [place] [address] Performed By: #### A LLBG ####[facility] RESPIRATORYCLIA [id number] [facility] RESPIRAT[facility] [id number] [address] [address] Hemoglobin (Bld) [Mass/Vol] 10.3 g/dL Low 11.5-15.5 [facility] Comment on above: Order Comment: Speci men Type: ARTERIAL BLOOD SPECIMENOrdering Facility: [facility] Address: [address] [place] [address] Performed By: #### A LLBG ####[facility] RESPIRATORYCLIA [id number] [facility]OS[facility] RESPIRATORY [id number] [address] [address] Lactate [Moles/Vol] 1.0 mmol/L Normal 0.5-2.2 [facility] Comment on above: Order Comment: Speci men Type: ARTERIAL BLOOD SPECIMENOrdering Facility: [facility] Address: [address] [place] [address] Performed By: #### A LLBG ####[facility] RESPIRATORYCLIA [id number] [facility]OS[facility] RES[facility]IRAT[facility] [id number] [address] [address] Methemoglobin (Bld) [Mass fraction] % Normal 0.0-1.5 [facility] Comment on above: Order Comment: Speci men Type: ARTERIAL BLOOD SPECIMENOrdering Facility: [facility] Address: [address] [place] [id number] Performed By: #### A LLBG ####[facility] RESPIRATORYCLIA [id number] [facility] RESPIRAT[facility] [id number] [address] [address] O2 THERAPY RA=Room Air Normal [facility] Comment on above: Order Comment: Speci men Type: ARTERIAL BLOOD SPECIMENOrdering Facility: [facility] Address: [address] [place] [address] Performed By: #### A LLBG ####[facility] [id number] [facility]OS[facility] RESPIRATORY [id number] [address] [address] Oxygen (Bld) [Partial pressure] 61 mm Hg Low 85-95 [facility] Comment on above: Order Comment: Speci men Type: ARTERIAL BLOOD SPECIMENOrdering Facility: [facility] Address: [address] [place] [address] Performed By: #### A LLBG ####[facility] [id number] [facility]OS[facility] RESPIRATORY [id number] [address] [address] Oxygen adjusted to patient's actual temperature (Bld) [Partial pressure] Normal [facility] Comment on above: Order Comment: Speci men Type: ARTERIAL BLOOD SPECIMENOrdering Facility: [facility] Address: [address] [place] [address] Performed By: #### A LLBG ####[facility] [id number] HOSPITAL RESPIRATORY [id number] [address] [address] Oxyhemoglobin (BldA) [Mass fraction] 90 % Low 95-98 [facility] Comment on above: Order Comment: Speci men Type: ARTERIAL BLOOD SPECIMENOrdering Facility: [facility] Address: [address] [place] [address] Performed By: #### A LLBG ####[facility] [id number] [facility]OS[facility] RESPIRATORY [id number] [address] [address] pH (Bld) 7.45 [pH] Normal 7.35-7.45 [facility] Comment on above: Order Comment: Speci men Type: ARTERIAL BLOOD SPECIMENOrdering Facility: [facility] Address: [address] [place] [address] Performed By: #### A LLBG ####[facility] RESPIRATORYCLIA [id number] [facility] RES[facility]IRAT[facility] [id number] [address] [address] pH adjusted to patient's actual temperature (Bld) Normal [facility] Comment on above: Order Comment: Speci men Type: ARTERIAL BLOOD SPECIMENOrdering Facility: [facility] Address: [address] [place] [address] Performed By: #### A LLBG ####[facility] RESPIRATORYCLIA [id number] [facility] RESPIRATORY [id number] [address] [address] PO2 / FIO2 RATIO 290 mmHg Low >300 [facility] Comment on above: Order Comment: Speci men Type: ARTERIAL BLOOD SPECIMENOrdering Facility: [facility] Address: [address] [place] [address] Performed By: #### A LLBG ####[facility]PIRATORYIA [id number] [facility] RESPIRATORY [id number] [place] [address] Potassium [Moles/Vol] 4.0 mmol/L Normal 3.5-5.0 [facility] Comment on above: Order Comment: Speci men Type: ARTERIAL BLOOD SPECIMENOrdering Facility: [facility] Address: [address] [place] [address] Performed By: #### A LLBG ####[facility]PIRATORYIA [id number] [facility] RESPIRATORY [id number] [place] [address] Ammonia Plas-sCncon 12-02-19 25 Ammonia (P) [Moles/Vol] 14 umol/L Normal 11-51 [place] Comment on above: Order Comment: Speci men Type: BLOOD SPECIMENOrdering Facility: [facility] Address: [address] [place] [address] Performed By: #### 1 6362-6 ####[facility] LABORATORYCLIA [id number] [place] [address] [place] CBC W Auto Differential pane l (Bld)on 12-02-2024 Basophils (Bld) [#/Vol] 0.06 10*3/uL Normal <0.11 [facility] Comment on above: Order Comment: Speci men Type: BLOOD SPECIMENOrdering Facility: [facility] Address: [address] [place] [address] Performed By: #### 5 7021-8 ####[facility] LABORATORYCLIA [id number] [place] [address] [place] Basophils/100 WBC (Bld) 0.3 % Normal [place] Comment on above: Order Comment: Speci men Type: BLOOD SPECIMENOrdering Facility: [facility] Address: [address] [place] [address] Performed By: #### 5 7021-8 ####[facility] LABORATORYCLIA [id number] [place] [address] [place] Differential cell count method Nom (Bld) Auto Normal [facility] Comment on above: Order Comment: Speci men Type: BLOOD SPECIMENOrdering Facility: [facility] Address: [address] [place] [address] Performed By: #### 5 7021-8 ####[facility] LABORATORYCLIA [id number] [place] [address] [place] Eosinophils (Bld) [#/Vol] 0.24 10*3/uL Normal <0.46 [facility] Comment on above: Order Comment: Speci men Type: BLOOD SPECIMENOrdering Facility: [facility] Address: [address] [place] [address] Performed By: #### 5 7021-8 ####[facility] LABORATORYCLIA [id number] [place] [address] [place] Eosinophils/100 WBC (Bld) 1.2 % Normal [facility] Comment on above: Order Comment: Speci men Type: BLOOD SPECIMENOrdering Facility: [facility] Address: [address] [place] [address] Performed By: #### 5 7021-8 ####[facility] LABORATORYCLIA [id number] [place] [address] [place] Erythrocyte distribution width (RBC) [Ratio] 15.6 % High 11.5-15.0 [facility] Comment on above: Order Comment: Speci men Type: BLOOD SPECIMENOrdering Facility: [facility] Address: [address] [place] [address] Performed By: #### 5 7021-8 ####[facility] LABORATORYCLIA [id number] [place] [address] [place] Hematocrit (Bld) [Volume fraction] 27.1 % Low 36.0-46.0 [facility] Comment on above: Order Comment: Speci men Type: BLOOD SPECIMENOrdering Facility: [facility] Address: [address] [place] [address] Performed By: #### 5 7021-8 ####[facility] LABORATORYCLIA [id number] [place] [address] [place] Hemoglobin (Bld) [Mass/Vol] 9.0 g/dL Low 11.5-15.5 [facility] Comment on above: Order Comment: Speci men Type: BLOOD SPECIMENOrdering Facility: [facility] Address: [address] [place] [address] Performed By: #### 5 7021-8 ####[facility] LABORATORYCLIA [id number] [place] [address] [place] Immature granulocytes (Bld) [#/Vol] 0.23 10*3/uL High <0.10 [facility] Comment on above: Order Comment: Speci men Type: BLOOD SPECIMENOrdering Facility: [facility] Address: [address] [place] [address] Performed By: #### 5 7021-8 ####[facility] LABORATORYCLIA [id number] [place] [address] [place] Immature granulocytes/100 WBC (Bld) 1.2 % Normal [facility] Comment on above: Order Comment: Speci men Type: BLOOD SPECIMENOrdering Facility: [facility] Address: [address] [place] [address] Performed By: #### 5 7021-8 ####[facility] LABORATORYCLIA [id number] [place] [address] [place] Lymphocytes (Bld) [#/Vol] 0.92 10*3/uL Low 1.00-4.00 [facility] Comment on above: Order Comment: Speci men Type: BLOOD SPECIMENOrdering Facility: [facility] Address: [address] [place] [address] Performed By: #### 5 7021-8 ####[facility] LABORATORYCLIA [id number] [address] Lymphocytes/100 WBC (Bld) 4.7 % Normal [facility] Comment on above: Order Comment: Speci men Type: BLOOD SPECIMENOrdering Facility: [facility] Address: [address] [place] [address] Performed By: #### 5 7021-8 ####[facility] LABORATORYCLIA [id number] [address] [place] [facility] MCH (RBC) [Entitic mass] 28.2 pg Normal 26.0-34.0 [facility] Comment on above: Order Comment: Speci men Type: BLOOD SPECIMENOrdering Facility: [facility] Address: [address] [place] [address] Performed By: #### 5 7021-8 ####[facility] LABORATORYCLIA [id number] [address] [place] [facility] MCHC (RBC) [Mass/Vol] 33.2 g/dL Normal 30.5-36.0 [facility] Comment on above: Order Comment: Speci men Type: BLOOD SPECIMENOrdering Facility: [facility] Address: [address] [place] [address] Performed By: #### 5 7021-8 ####[facility] LABORATORYCLIA [id number] [address] MCV (RBC) [Entitic vol] 85.0 fL Normal 80.0-100.0 M [facility] Comment on above: Order Comment: Speci men Type: BLOOD SPECIMENOrdering Facility: [facility] Address: [address] [place] [address] Performed By: #### 5 7021-8 ####[facility] LABORATORYCLIA [id number] [address] [place] Monocytes (Bld) [#/Vol] 1.07 10*3/uL High <0.87 [facility] Comment on above: Order Comment: Speci men Type: BLOOD SPECIMENOrdering Facility: [facility] Address: [address] [place] [address] Performed By: #### 5 7021-8 ####[facility] LABORATORYCLIA [id number] [place] [address] [place] Monocytes/100 WBC (Bld) 5.4 % Normal [place] Comment on above: Order Comment: Speci men Type: BLOOD SPECIMENOrdering Facility: [facility] Address: [address] [place] [address] Performed By: #### 5 7021-8 ####[facility] LABORATORYCLIA [id number] [place] [address] [place] Neutrophils (Bld) [#/Vol] 17.12 10*3/uL High 1.45-7.50 [facility] Comment on above: Order Comment: Speci men Type: BLOOD SPECIMENOrdering Facility: [facility] Address: [address] [place] [address] Performed By: #### 5 7021-8 ####[facility] LABORATORYCLIA [id number] [address] [place] Neutrophils/100 WBC (Bld) 87.2 % Normal [facility] Comment on above: Order Comment: Speci men Type: BLOOD SPECIMENOrdering Facility: [facility] Address: [address] [place] [address] Performed By: #### 5 7021-8 ####[facility] LABORATORYCLIA [id number] [place] [address] [place] Nucleated RBC (Bld) [#/Vol] 10*3/uL Normal <0.01 [facility] Comment on above: Order Comment: Speci men Type: BLOOD SPECIMENOrdering Facility: [facility] Address: [address] [place] [address] Performed By: #### 5 7021-8 ####[facility] LABORATORYCLIA [id number] [place] [address] [place] Nucleated RBC/100 WBC (Bld) [Ratio] 0.0 /100 WBC Normal [facility] Comment on above: Order Comment: Speci men Type: BLOOD SPECIMENOrdering Facility: [facility] Address: [facility] [place] [address] Performed By: #### 5 7021-8 ####[facility] LABORATORYCLIA [id number] [place] [address] [place] Platelet mean volume (Bld) [Entitic vol] 8.8 fL Low 9.0-12.7 [facility] Comment on above: Order Comment: Speci men Type: BLOOD SPECIMENOrdering Facility: [facility] Address: [address] [place] [address] [place] [address] Performed By: #### 5 7021-8 ####[facility] LABORATORYCLIA [id number] [place] [address] [place] Platelets (Bld) [#/Vol] 439 10*3/uL High 150-400 [facility] Comment on above: Order Comment: Speci men Type: BLOOD SPECIMENOrdering Facility: [facility] Address: [address] [place] [address] [place] [address] Performed By: #### 5 7021-8 ####[facility] LABORATORYCLIA [id number] [place] [address] [place] RBC (Bld) [#/Vol] 3.19 10*6/uL Low 3.90-5.20 [facility] Comment on above: Order Comment: Speci men Type: BLOOD SPECIMENOrdering Facility: [facility] Address: [facility] [place] [address] Performed By: #### 5 7021-8 ####[facility] LABORATORYCLIA [id number] [place] [id number] [place] WBC (Bld) [#/Vol] 19.64 10*3/uL High 3.70-11.00 [facility] Comment on above: Order Comment: Speci men Type: BLOOD SPECIMENOrdering Facility: [facility] Address: [address] [place] [address] Performed By: #### 5 7021-8 ####[facility] LABORATORYCLIA [id number] [place] [address] [place] CK SerPl-cCncon 12-02-2024 CK [Catalytic activity/Vol] 48 U/L Normal 42-196 [facility] Comment on above: Order Comment: Speci men Type: BLOOD SPECIMENOrdering Facility: [facility] Address: [address] [place] [address] Performed By: #### 2 951-2, 2157-6, 3084-1 ####[facility] LABORATORYCLIA [id number] [place] [address] [place] CONSULT PROGon 12-02-2024 CONSULT PROG Normal [facility] CRP SerPl-mCncon 12-02-2024 CRP [Mass/Vol] 14.2 mg/dL High <0.9 [facility] Comment on above: Order Comment: Speci men Type: BLOOD SPECIMENOrdering Facility: [facility] Address: [address] [place] [address] Performed By: #### 3 084-1, , , 1988-03 ####[facility] LABORATORYCLIA [id number] [place] [address] [place] Comprehensive metabolic 2000 panelon 12-02-2024 Albumin [Mass/Vol] 2.3 g/dL Low 3.9-4.9 [facility] Comment on above: Order Comment: Speci men Type: BLOOD SPECIMENOrdering Facility: [facility] Address: [address] [place], [place] [address] Performed By: #### 3 084-1, , , 1988-03 ####[facility] LABORATORYCLIA [id number] [place] [address] [place] ALP [Catalytic activity/Vol] 94 U/L Normal 34-123 [facility] Comment on above: Order Comment: Speci men Type: BLOOD SPECIMENOrdering Facility: [facility] Address: [address] [place], [place] [address] Performed By: #### 3 084-1, , , 1988-03 ####[facility] LABORATORYCLIA [id number] [place] [address] [place] ALT [Catalytic activity/Vol] U/L Low 7-38 [facility] Comment on above: Order Comment: Speci men Type: BLOOD SPECIMENOrdering Facility: [facility] Address: [address] [place] [address] [place] [address] Performed By: #### 3 084-1, , , 1988-03 ####[facility] LABORATORYCLIA [id number] [place] [address] [place] Anion gap [Moles/Vol] 11 mmol/L Normal 8-15 [facility] Comment on above: Order Comment: Speci men Type: BLOOD SPECIMENOrdering Facility: [facility] Address: [address] [place] [address] Performed By: #### 3 084-1, , , 1988-03 ####[facility] LABORATORYCLIA [id number] [address] [place] AST [Catalytic activity/Vol] 15 U/L Normal 13-35 [facility] Comment on above: Order Comment: Speci men Type: BLOOD SPECIMENOrdering Facility: [facility] Address: [address] [place] [address] Performed By: #### 3 084-1, , , 1988-03 ####[facility] LABORATORYCLIA [id number] [place] [address] [place] Bilirubin [Mass/Vol] 0.2 mg/dL Normal 0.2-1.3 [facility] Comment on above: Order Comment: Speci men Type: BLOOD SPECIMENOrdering Facility: [facility] Address: [address] [place] [address] Performed By: #### 3 084-1, , , 1988-03 ####[facility] LABORATORYCLIA [id number] [place] [address] [place] Calcium [Mass/Vol] 9.0 mg/dL Normal 8.5-10.2 [facility] Comment on above: Order Comment: Speci men Type: BLOOD SPECIMENOrdering Facility: [facility] Address: [address] [place] [address] Performed By: #### 3 084-1, , , 1988-03 ####[facility] LABORATORYCLIA [id number] [place] [address] [place] Chloride [Moles/Vol] 93 mmol/L Low 98-107 [facility] Comment on above: Order Comment: Speci men Type: BLOOD SPECIMENOrdering Facility: [facility] Address: [address] [place] [address] Performed By: #### 3 084-1, , , 1988-03 ####[facility] LABORATORYCLIA [id number] [place] [id number] [place] CO2 [Moles/Vol] 24 mmol/L Normal 22-30 [facility] Comment on above: Order Comment: Speci men Type: BLOOD SPECIMENOrdering Facility: [facility] Address: [address] [place] [address] Performed By: #### 3 084-1, , , 1988-03 ####[facility] LABORATORYCLIA [id number] [place] [address] [place] Creatinine [Mass/Vol] 0.89 mg/dL Normal 0.58-0.96 [facility] Comment on above: Order Comment: Speci men Type: BLOOD SPECIMENOrdering Facility: [facility] Address: [address] [place] [address] Performed By: #### 3 084-1, , , 1988-03 ####[facility] LABORATORYCLIA [id number] [place] [id number] [facility] [place] Creatinine and Glomerular filtration rate.predicted panel (S/P/Bld) 62 mL/min/1.73m??? Normal >=60 [facility] Comment on above: Order Comment: Speci men Type: BLOOD SPECIMENOrdering Facility: [facility] Address: [address] [place] [address] Result Comment: Hilda mated Glomerular Filtration Rate [...] By: #### 3 084-1, , , 1988-03 ####[facility] LABORATORYCLIA [id number] [place] [address] [place] Glucose [Mass/Vol] 289 mg/dL High 74-99 [facility] Comment on above: Order Comment: Fan meade Type: BLOOD SPECIMENOrdering Facility: [facility] Address: [address] [place] [address] Result Comment: The [place] Diabetes Association (ADA) provides guidance for cutoff [...] Standards of Medical Care in Diabetes 2016, [place] [employer]. Diabetes Care. 2016.39(Suppl 1). Performed By: #### 3 084-1, , , 1988-03 ####[facility] LABORATORYCLIA [id number] [place] [address] [place] Potassium [Moles/Vol] 4.4 mmol/L Normal 3.7-5.1 [facility] Comment on above: Order Comment: Fan meade Type: BLOOD SPECIMENOrdering Facility: [facility] Address: [address] [place] [id number] Performed By: #### 3 084-1, , , 1988-03 ####[facility] LABORATORYCLIA [id number] [place] [address] [place] Protein [Mass/Vol] 5.6 g/dL Low 6.3-8.0 [facility] Comment on above: Order Comment: Speci men Type: BLOOD SPECIMENOrdering Facility: [facility] Address: [address] [place] [address] Performed By: #### 3 084-1, , , 1988-03 ####[facility] LABORATORYCLIA [id number] [place] [address] [place] Sodium [Moles/Vol] 128 mmol/L Low 136-144 [facility] Comment on above: Order Comment: Speci men Type: BLOOD SPECIMENOrdering Facility: [facility] Address: [address] [place] [address] Performed By: #### 3 084-1, , , 1988-03 ####[facility] LABORATORYCLIA [id number] [address] [place] Urea nitrogen [Mass/Vol] 36 mg/dL High 7-21 [facility] Comment on above: Order Comment: Speci men Type: BLOOD SPECIMENOrdering Facility: [facility] Address: [address] [place] [address] Performed By: #### 3 084-1, , , 1988-03 ####[facility] LABORATORYCLIA [id number] [address] [place] DNA double strand Ab IA Qn ( S)on 12-02-2024 DNA ANTIBODY 117 IU/mL Normal <=200 [facility] Comment on above: Order Comment: Speci men Type: BLOOD SPECIMENOrdering Facility: [facility] Address: [address] [place] [address] Result Comment: Nega tive: <200 IU/mLEquivocal: 201-300 IU/mLModerate Positive: 301-800 IU/mLStrong Positive: >801 IU/mL Performed By: #### 1 989-3, 79887-1, 14986-4, ANCAC, 6969-0 ####[facility] LABCLIA [id number] [place] [address] [place] DNA ANTIBODY QUALITATIVE INTERPRETATION Negative Normal Negative [facility] Comment on above: Order Comment: Speci men Type: BLOOD SPECIMENOrdering Facility: [facility] Address: [address] [place] [address] Performed By: #### 1 989-3, 45058-2, 47844-2, ANCAC, 6969-0 ####[facility] LABCLIA [id number] [place] [address] [place] ESR Westergren method (Bld) [Velocity]on 12-02-2024 ESR (Bld) [Velocity] 120 mm/h High 0-20 [facility] Comment on above: Order Comment: Speci men Type: BLOOD SPECIMENOrdering Facility: [facility] Address: [address] [place] [address] Performed By: #### 4 537-7 ####[facility] LABCLIA [id number] [address] [place] MRI BRAIN WO/W IVCONon 12-02 MRI BRAIN WO/W IVCON Normal [facility] MRI CERVICAL SPINE WO/W IVCO Non 12-02-2024 MRI CERVICAL SPINE WO/W IVCON Normal [facility] MRI LUMBAR SPINE WO/W IVCONo n 12-02-2024 MRI LUMBAR SPINE WO/W IVCON Normal [facility] MRI THORACIC SPINE WO/W IVCO Non 12-02-2024 MRI THORACIC SPINE WO/W IVCON Normal [facility] Magnesium SerPl-mCncon 12-02 Magnesium [Mass/Vol] 1.5 mg/dL Low 1.7-2.3 [facility] Comment on above: Order Comment: Speci men Type: BLOOD SPECIMENOrdering Facility: [facility] [facility] Address: [address] [place] [address] Performed By: #### 3 084-1, 85041-7, 53183-8, 1988-03 ####[facility]ORATORYCLIA [id number] [place] [address] [place] Myeloperoxidase Ab Ser-aCnco n 12-02-2024 Myeloperoxidase Ab Qn (S) <0.2 Normal <1.0 [facility] Comment on above: Order Comment: Speci men Type: BLOOD SPECIMENOrdering Facility: [facility] Address: [address] [place] [address] Performed By: #### 1 989-3, 34897-1, 07493-2, [facility], 6969-0 ####[facility] [id number] [place] [address] [place] Osmolality SerPlon Osmolality [Osmolality] 285 mosm/kg Normal 275-300 [facility] Comment on above: Order Comment: Speci men Type: BLOOD SPECIMENOrdering Facility: [facility] Address: [address] [place] [address] Performed By: #### 2 692-2 ####[facility] [id number] [place] [address] [place] Osmolality Uron 12-02-2024 Osmolality (U) [Osmolality] 488 mosm/kg Normal 50-1200 [facility] Comment on above: Order Comment: Speci men Type: URINE SPECIMENOrdering Facility: [facility] Address: [address] [place] [address] Performed By: #### 2 695-5 ####[facility]IA [id number] [place] [address] [place] PROTEINASE 3 ANTIBODYon 11-14 Proteinase 3 Ab Qn (S) <0.2 Normal <1.0 [facility] Comment on above: Order Comment: Speci men Type: BLOOD SPECIMENOrdering Facility: [facility] Address: [address] [place] [address] Performed By: #### 1 989-3, 05576-1, 84041-6, ANCA, 6969-0 ####[facility] LABCL[facility] [id number] [place] [address] [place] Phosphate SerPl-mCncon 12-02 Phosphate [Mass/Vol] 3.0 mg/dL Normal 2.7-4.8 [facility] Comment on above: Order Comment: Speci men Type: BLOOD SPECIMENOrdering Facility: [facility] Address: [address] [place] [address] Performed By: #### 2 777-1 ####[facility]ORATORYCLIA [id number] [place] [address] [place] Smooth muscle Ab Ql (S)on ACTIN SMOOTH MUSCLE IGG QUALITATIVE Negative Normal Negative [facility] Comment on above: Order Comment: Speci men Type: BLOOD SPECIMENOrdering Facility: [facility] Address: [address] [place] [address] Performed By: #### 1 989-3, 27959-2, 67334-9, ANCA, 6969-0 ####[facility] LABCL[facility] [id number] [place] [address] [place] ACTIN SMOOTH MUSCLE IGG QUANTITATIVE 3 Units Normal <20 [facility] Comment on above: Order Comment: Speci men Type: BLOOD SPECIMENOrdering Facility: [facility] Address: [address] [place] [address] Performed By: #### 1 989-3, 36814-6, 39988-5, ANCAC, 6969-0 ####[facility] LABCLIA [id number] [place] [id number] [place] Sodium SerPl-sCncon 12-02-19 25 Sodium [Moles/Vol] 127 mmol/L Low 136-144 [facility] Comment on above: Order Comment: Speci men Type: BLOOD SPECIMENOrdering Facility: [facility] Address: [address] [place] [address] Performed By: #### 2 951-2 ####[facility] LABORATORYCLIA [id number] [place] [id number] [place] Sodium [Moles/Vol] 130 mmol/L Low 136-144 [facility] Comment on above: Order Comment: Speci men Type: BLOOD SPECIMENOrdering Facility: [facility] Address: [address] [place], [place] [address] Performed By: #### 2 951-2, 2157-04, 3083-11 ####[facility]ORATORYCLIA [id number] [place] [address] [place] US ABD RIGHT UPPER QUADRANTo n 12-02-2024 US ABD RIGHT UPPER QUADRANT Normal [facility] US ABD SPLEEN -NBon 12-02-19 US ABD SPLEEN -NB Normal [facility] US EXT MASS/FLUID COLLECTION LTon 12-02-2024 US EXT MASS/FLUID COLLECTION LT [facility] Urate SerPl-mCncon Urate [Mass/Vol] 4.9 mg/dL Normal 2.5-6.6 [facility] Comment on above: Order Comment: Speci men Type: BLOOD SPECIMENOrdering Facility: [facility] Address: [address] [place] [address] Performed By: #### 2 951-2, 2157-04, 3083-11 ####[facility]ORATORYCLIA [id number] [address] [place] Urate [Mass/Vol] 5.1 mg/dL Normal 2.5-6.6 [facility] Comment on above: Order Comment: Speci men Type: BLOOD SPECIMENOrdering Facility: [facility] Address: [address] [place] [address] Performed By: #### 3 084-1, 82502-7, 29085-5, 1987- ####[facility]ORATORYCLIA [id number] [place] [id number] [place] ALLIED HEALTHon 12-01-2024 ALLIED HEALTH [facility] Bacteria Ur Culton Bacteria identified Cx Nom (U) CULTURE, URINE: Mixed microbiota: ORGANISM ID: 1 <10,000 CFU/ml Lactose negative gram negative bacilli Insignificant colony count. No further workup. [facility] Comment on above: Performed By: #### 6 30-4 ####[facility] LABCLIA [id number] [facility]DES[facility] [id number] [id number] [place] Basic metabolic 2000 panelon 12-01-2024 Anion gap [Moles/Vol] 12 mmol/L Normal 8-15 [facility] Comment on above: Order Comment: Speci men Type: BLOOD SPECIMENOrdering Facility: [facility] Address: [address] [place] [address] Performed By: #### 2 4321-2 ####[facility]ORATORYCLIA [id number] [place] [address] [place] Calcium [Mass/Vol] 8.7 mg/dL Normal 8.5-10.2 [facility] Comment on above: Order Comment: Speci men Type: BLOOD SPECIMENOrdering Facility: [facility] Address: [address] [place] [address] Performed By: #### 2 4321-2 ####[facility]ORATORYCLIA [id number] [place] [address] [place] Chloride [Moles/Vol] 91 mmol/L Low 98-107 [facility] Comment on above: Order Comment: Speci men Type: BLOOD SPECIMENOrdering Facility: [facility] Address: [address] [place] [address] Performed By: #### 2 4321-2 ####[facility]ORATORYCLIA [id number] [place] [address] [place] CO2 [Moles/Vol] 25 mmol/L Normal 22-30 [facility] Comment on above: Order Comment: Speci men Type: BLOOD SPECIMENOrdering Facility: [facility] Address: [address] [place] [address] Performed By: #### 2 4321-2 ####[facility]ORATORYCLIA [id number] [place] [address] [place] Creatinine [Mass/Vol] 1.03 mg/dL High 0.58-0.96 [facility] Comment on above: Order Comment: Speci men Type: BLOOD SPECIMENOrdering Facility: [facility] Address: [address] [place] [address] Performed By: #### 2 4321-2 ####[facility]ORATORYCLIA [id number] [place] [address] [place] Creatinine and Glomerular filtration rate.predicted panel (S/P/Bld) 52 mL/min/1.73m??? Low >=60 [facility] Comment on above: Order Comment: Fan meade Type: BLOOD SPECIMENOrdering Facility: [facility] Address: [address] [place] [address] Result Comment: Hilda mated Glomerular Filtration Rate [...] Performed By: #### 2 4321-2 ####[facility]ORATORYCLIA [id number] [place] [id number] [place] Glucose [Mass/Vol] 200 mg/dL High 74-99 [facility] Comment on above: Order Comment: Fan meade Type: BLOOD SPECIMENOrdering Facility: [facility] Address: [address] [place] [address] Result Comment: The [place] Diabetes Association (ADA) provides guidance for cutoff [...] Standards of Medical Care in Diabetes 2016, [place] [employer]. Diabetes Care. 2016.39(Suppl 1). Performed By: #### 2 4321-2 ####[facility]ORATORYCLIA [id number] [place] [id number] [place] Potassium [Moles/Vol] 4.7 mmol/L Normal 3.7-5.1 [facility] Comment on above: Order Comment: Fan meade Type: BLOOD SPECIMENOrdering Facility: [facility] Address: [address] [place] [address] Performed By: #### 2 4321-2 ####[facility]ORATORYCLIA [id number] [place] [address] [place] Sodium [Moles/Vol] 128 mmol/L Low 136-144 [facility] Comment on above: Order Comment: Speci men Type: BLOOD SPECIMENOrdering Facility: [facility] Address: [address] [place] [address] Performed By: #### 2 4321-2 ####[facility]ORATORYCLIA [id number] [place] [address] [place] Urea nitrogen [Mass/Vol] 36 mg/dL High 7-21 [facility] Comment on above: Order Comment: Speci men Type: BLOOD SPECIMENOrdering Facility: [facility] Address: [address] [place] [address] Performed By: #### 2 4321-2 ####[facility]ORATORYCLIA [id number] [place] [address] [place] Anion gap [Moles/Vol] 12 mmol/L Normal 8-15 [facility] Comment on above: Order Comment: Speci men Type: BLOOD SPECIMENOrdering Facility: [facility] Address: [address] [place] [address] Performed By: #### 1 9123-9, 04328-2, 33395-2, 08983-1, 81525-0 ####[facility]ORATORYCLIA [id number] [place] [address] [place] Calcium [Mass/Vol] 9.4 mg/dL Normal 8.5-10.2 [facility] Comment on above: Order Comment: Speci men Type: BLOOD SPECIMENOrdering Facility: [facility] Address: [address] [place] [address] Performed By: #### 1 9123-9, 80168-8, 61699-9, 40441-4, 41922-1 ####[facility]ORATORYCLIA [id number] [place] [address] [place] Chloride [Moles/Vol] 92 mmol/L Low 98-107 [facility] Comment on above: Order Comment: Speci men Type: BLOOD SPECIMENOrdering Facility: [facility] Address: [address] [place], [place] [address] Performed By: #### 1 9123-9, 82197-6, 84637-9, 36374-8, 38861-7 ####[facility]ORYCLIA [id number] [place] [address] [place] CO2 [Moles/Vol] 25 mmol/L Normal 22-30 [facility] Comment on above: Order Comment: Speci men Type: BLOOD SPECIMENOrdering Facility: [facility] Address: [address] [place] [address] Performed By: #### 1 9123-9, 61643-5, 88182-6, 42633-3, 70649-4 ####[facility]ORYCLIA [id number] [address] Creatinine [Mass/Vol] 0.95 mg/dL Normal 0.58-0.96 [facility] Comment on above: Order Comment: Fan men Type: BLOOD SPECIMENOrdering Facility: [facility] Address: [address] [place] [address] Performed By: #### 1 9123-9, 57019-8, 38596-4, 53993-4, 32496-6 ####[facility]ORYCLIA [id number] [address] Creatinine and Glomerular filtration rate.predicted panel (S/P/Bld) 58 mL/min/1.73m??? Low >=60 [facility] Comment on above: Order Comment: Fan [facility] Type: BLOOD SPECIMENOrdering Facility: [facility] Address: [address] [place] [address] Result Comment: Hilda mated Glomerular Filtration Rate [...] actual GFR. Performed By: #### 1 9123-9, 68126-2, 04393-3, 73236-1, 44329-2 ####[facility]ORATORYCLIA [id number] [place] [address] [place] Glucose [Mass/Vol] 230 mg/dL High 74-99 [facility] Comment on above: Order Comment: Speci men Type: BLOOD SPECIMENOrdering Facility: [facility] Address: [address] [place] [address] Result Comment: The [place] Diabetes Association (ADA) provides guidance for cutoff [...] Standards of Medical Care in Diabetes 2016, [place] [employer]. Diabetes Care. 2016.39(Suppl 1). Performed By: #### 1 9123-9, 13508-1, 94343-6, 96085-0, 97345-0 ####[facility]ATORYCLIA [id number] [place] [address] [place] Potassium [Moles/Vol] 4.7 mmol/L Normal 3.7-5.1 [facility] Comment on above: Order Comment: Katei men Type: BLOOD SPECIMENOrdering Facility: [facility] Address: [address] [place] [address] Performed By: #### 1 9123-9, 39092-9, 69544-0, 71988-2, 61843-7 ####[facility]ATORYCLIA [id number] [place] [id number] [place] Sodium [Moles/Vol] 129 mmol/L Low 136-144 [facility] Comment on above: Order Comment: Katei men Type: BLOOD SPECIMENOrdering Facility: [facility] Address: [address] [place], [place] [address] Performed By: #### 1 9123-9, 71896-1, 13144-9, 98534-4, 83710-8 ####[facility]ORATORYCLIA [id number] [place] [address] [place] Urea nitrogen [Mass/Vol] 36 mg/dL High - [facility] Comment on above: Order Comment: Speci men Type: BLOOD SPECIMENOrdering Facility: [facility] Address: [address] [place] [address] Performed By: #### 1 9123-9, 04366-4, 02435-9, 92240-4, 97930-8 ####[facility]ORATORYCLIA [id number] [place] [address] [place] CBC W Auto Differential pane l (Bld)on 12-01-2024 Basophils (Bld) [#/Vol] 0.06 10*3/uL Normal <0.11 [facility] Comment on above: Order Comment: Speci men Type: BLOOD SPECIMENOrdering Facility: [facility] Address: [address] [place] [address] Performed By: #### 5 7021-8 ####[facility] LABORATORYCLIA [id number] [place] [address] [place] Basophils/100 WBC (Bld) 0.3 % Normal [place] Comment on above: Order Comment: Speci men Type: BLOOD SPECIMENOrdering Facility: [facility] Address: [address] [place] [address] Performed By: #### 5 7021-8 ####[facility]ORATORYCLIA [id number] [address] Differential cell count method Nom (Bld) Auto Normal [facility] Comment on above: Order Comment: Speci men Type: BLOOD SPECIMENOrdering Facility: [facility] Address: [address] [place] [address] Performed By: #### 5 7021-8 ####[facility]ORATORYCLIA [id number] [place] [address] [place] Eosinophils (Bld) [#/Vol] 0.20 10*3/uL Normal <0.46 [facility] Comment on above: Order Comment: Speci men Type: BLOOD SPECIMENOrdering Facility: [facility] Address: [address] [place] [address] Performed By: #### 5 7021-8 ####[facility]ORATORYCLIA [id number] [address] [place] Eosinophils/100 WBC (Bld) 0.9 % Normal [facility] Comment on above: Order Comment: Speci men Type: BLOOD SPECIMENOrdering Facility: [facility] Address: [address] [place] [address] Performed By: #### 5 7021-8 ####[facility]ORATORYCLIA [id number] [address] [place] Erythrocyte distribution width (RBC) [Ratio] 15.9 % High 11.5-15.0 [facility] Comment on above: Order Comment: Speci men Type: BLOOD SPECIMENOrdering Facility: [facility] Address: [address] [place] [address] Performed By: #### 5 7021-8 ####[facility]ORATORYCLIA [id number] [address] [place] Hematocrit (Bld) [Volume fraction] 26.6 % Low 36.0-46.0 [facility] Comment on above: Order Comment: Speci men Type: BLOOD SPECIMENOrdering Facility: [facility] Address: [address] [place] [address] Performed By: #### 5 7021-8 ####[facility]ORATORYCLIA [id number] [place] [address] [place] Hemoglobin (Bld) [Mass/Vol] 8.8 g/dL Low 11.5-15.5 [facility] Comment on above: Order Comment: Speci men Type: BLOOD SPECIMENOrdering Facility: [facility] Address: [address] [place] [address] Performed By: #### 5 7021-8 ####[facility]ORATORYCLIA [id number] [address] [place] Immature granulocytes (Bld) [#/Vol] 0.32 10*3/uL High <0.10 [facility] Comment on above: Order Comment: Speci men Type: BLOOD SPECIMENOrdering Facility: [facility] Address: [address] [place] [address] Performed By: #### 5 7021-8 ####[facility]ORATORYCLIA [id number] [address] Immature granulocytes/100 WBC (Bld) 1.4 % Normal [facility] Comment on above: Order Comment: Speci men Type: BLOOD SPECIMENOrdering Facility: [facility] Address: [address] [place] [address] Performed By: #### 5 7021-8 ####[facility]ORATORYCLIA [id number] [address] [place] Lymphocytes (Bld) [#/Vol] 1.00 10*3/uL Normal 1.00-4.00 [facility] Comment on above: Order Comment: Speci men Type: BLOOD SPECIMENOrdering Facility: [facility] Address: [address] [place] [address] Performed By: #### 5 7021-8 ####[facility]ORATORYCLIA [id number] [address] Lymphocytes/100 WBC (Bld) 4.5 % Normal [facility] Comment on above: Order Comment: Speci men Type: BLOOD SPECIMENOrdering Facility: [facility] Address: [address] [place] [address] Performed By: #### 5 7021-8 ####[facility] LABORATORYCLIA [id number] [address] MCH (RBC) [Entitic mass] 28.3 pg Normal 26.0-34.0 [facility] Comment on above: Order Comment: Speci men Type: BLOOD SPECIMENOrdering Facility: [facility] Address: [address] [place] [address] Performed By: #### 5 7021-8 ####[facility]ORATORYCLIA [id number] [address] MCHC (RBC) [Mass/Vol] 33.1 g/dL Normal 30.5-36.0 [facility] Comment on above: Order Comment: Speci men Type: BLOOD SPECIMENOrdering Facility: [facility] Address: [address] [place] [address] Performed By: #### 5 7021-8 ####[facility] LABORATORYCLIA [id number] [place] [address] [place] MCV (RBC) [Entitic vol] 85.5 fL Normal 80.0-100.0 [place] Comment on above: Order Comment: Speci men Type: BLOOD SPECIMENOrdering Facility: [facility] Address: [address] [place] [address] Performed By: #### 5 7021-8 ####[facility] LABORATORYCLIA [id number] [place] [address] [place] Monocytes (Bld) [#/Vol] 1.18 10*3/uL High <0.87 [facility] Comment on above: Order Comment: Speci men Type: BLOOD SPECIMENOrdering Facility: [facility] Address: [address] [place] [address] Performed By: #### 5 7021-8 ####[facility] LABORATORYCLIA [id number] [address] [place] Monocytes/100 WBC (Bld) 5.3 % Normal [place] Comment on above: Order Comment: Speci men Type: BLOOD SPECIMENOrdering Facility: [facility] Address: [address] [place] [address] Performed By: #### 5 7021-8 ####[facility] LABORATORYCLIA [id number] [place] [address] [place] Neutrophils (Bld) [#/Vol] 19.49 10*3/uL High 1.45-7.50 [facility] Comment on above: Order Comment: Speci men Type: BLOOD SPECIMENOrdering Facility: [facility] Address: [address] [place] [address] Performed By: #### 5 7021-8 ####[facility] LABORATORYCLIA [id number] [place] [address] [place] Neutrophils/100 WBC (Bld) 87.6 % Normal [facility] Comment on above: Order Comment: Speci men Type: BLOOD SPECIMENOrdering Facility: [facility] Address: [facility] [place] [address] Performed By: #### 5 7021-8 ####[facility] LABORATORYCLIA [id number] [place] [address] [place] Nucleated RBC (Bld) [#/Vol] 10*3/uL Normal <0.01 [facility] Comment on above: Order Comment: Speci men Type: BLOOD SPECIMENOrdering Facility: [facility] Address: [address] [place] [address] Performed By: #### 5 7021-8 ####[facility] LABORATORYCLIA [id number] [place] [address] [place] Nucleated RBC/100 WBC (Bld) [Ratio] 0.0 /100 WBC Normal [facility] Comment on above: Order Comment: Speci men Type: BLOOD SPECIMENOrdering Facility: [facility] Address: [address] [place] [address] Performed By: #### 5 7021-8 ####[facility] LABORATORYCLIA [id number] [place] [address] [place] Platelet mean volume (Bld) [Entitic vol] 8.7 fL Low 9.0-12.7 [facility] Comment on above: Order Comment: Speci men Type: BLOOD SPECIMENOrdering Facility: [facility] Address: [address] [place] [address] Performed By: #### 5 7021-8 ####[facility] LABORATORYCLIA [id number] [place] [address] [place] Platelets (Bld) [#/Vol] 435 10*3/uL High 150-400 [facility] Comment on above: Order Comment: Speci men Type: BLOOD SPECIMENOrdering Facility: [facility] Address: [address] [place] [address] Performed By: #### 5 7021-8 ####[facility] LABORATORYCLIA [id number] [place] [address] [place] RBC (Bld) [#/Vol] 3.11 10*6/uL Low 3.90-5.20 [facility] Comment on above: Order Comment: Speci men Type: BLOOD SPECIMENOrdering Facility: [facility] Address: [address] [place] [address] [place] [address] Performed By: #### 5 7021-8 ####[facility]ATORYCLIA [id number] [place] [address] [place] WBC (Bld) [#/Vol] 22.25 10*3/uL High 3.70-11.00 [facility] Comment on above: Order Comment: Speci men Type: BLOOD SPECIMENOrdering Facility: [facility] Address: [address] [place] [address] Performed By: #### 5 7021-8 ####[facility] LABORATORYCLIA [id number] [address] CONSULT PROGon 12-01-2024 CONSULT PROG Normal [facility] CONSULT PROG Normal [facility] CT ABD/PEL W IVCONon 025 CT ABD/PEL W IVCON [facility] ECG COMPLETEon 12-01-2024 ECG COMPLETE [facility] Hepatic function 2000 panelo n 12-01-2024 Albumin [Mass/Vol] 2.7 g/dL Low 3.9-4.9 [facility] Comment on above: Order Comment: Speci men Type: BLOOD SPECIMENOrdering Facility: [facility] Address: [address] [place] [address] Performed By: #### 1 9123-9, 46488-1, 34313-4, 40315-4, 80880-7 ####[facility]ORATORYCLIA [id number] [address] ALP [Catalytic activity/Vol] 79 U/L Normal 34-123 [facility] Comment on above: Order Comment: Speci men Type: BLOOD SPECIMENOrdering Facility: [facility] Address: [address] [place] [address] Performed By: #### 1 9123-9, 57421-6, 74283-2, 67441-1, 50166-4 ####[facility] LABORATORYCLIA [id number] [place] [address] [place] ALT [Catalytic activity/Vol] U/L Low 7-38 [facility] Comment on above: Order Comment: Speci men Type: BLOOD SPECIMENOrdering Facility: [facility] Address: [address] [place] [address] Performed By: #### 1 9123-9, 51929-2, 70964-7, 62908-6, 51896-0 ####[facility]ATORYCLIA [id number] [address] AST [Catalytic activity/Vol] 20 U/L Normal 13-35 [facility] Comment on above: Order Comment: Speci men Type: BLOOD SPECIMENOrdering Facility: [facility] Address: [address] [place] [address] Performed By: #### 1 9123-9, 79017-8, 44793-5, 17279-6, 43409-0 ####[facility]ORYCLIA [id number] [address] [place] Bilirubin [Mass/Vol] 0.2 mg/dL Normal 0.2-1.3 [facility] Comment on above: Order Comment: Speci men Type: BLOOD SPECIMENOrdering Facility: [facility] Address: [address] [place] [address] Performed By: #### 1 9123-9, 01756-9, 10242-5, 06433-5, 06872-7 ####[facility]ORYCLIA [id number] [address] Bilirubin.conjugated [Mass/Vol] mg/dL Normal <0.3 [facility] Comment on above: Order Comment: Speci men Type: BLOOD SPECIMENOrdering Facility: [facility] Address: [address] [place] [address] Performed By: #### 1 9123-9, 58304-1, 64354-6, 42837-9, 29413-4 ####[facility]ORYCLIA [id number] [address] [place] Protein [Mass/Vol] 5.9 g/dL Low 6.3-8.0 [facility] Comment on above: Order Comment: Speci men Type: BLOOD SPECIMENOrdering Facility: [facility] Address: [address] [place] [address] Performed By: #### 1 9123-9, 02241-9, 86890-2, 35569-2, 95615-1 ####[facility]ORYCLIA [id number] [place] [address] [place] MRI ANKLE WO IVCON LTon 11-14 MRI ANKLE WO IVCON LT Normal [facility] MRI FOOT/TOES WO IVCON LTon 12-01-2024 MRI FOOT/TOES WO IVCON LT Normal [facility] Magnesium SerPl-mCncon 12-01 Magnesium [Mass/Vol] 2.3 mg/dL Normal 1.7-2.3 [facility] Comment on above: Order Comment: Speci men Type: BLOOD SPECIMENOrdering Facility: [facility] Address: [address] [place] [address] Performed By: #### 1 9123-9, 35491-7, 95492-3, 91721-1, 42401-6 ####[facility]ORYCLIA [id number] [place] [address] [place] NT-proBNP SerPl-mCncon 12-01 Natriuretic peptide.B prohormone N-Terminal [Mass/Vol] 1162 pg/mL High <450 [facility] Comment on above: Order Comment: Speci men Type: BLOOD SPECIMENOrdering Facility: [facility] Address: [address] [place] [address] Performed By: #### 1 9123-9, 89303-5, 79250-5, 50189-5, 97603-9 ####[facility]ORYCLIA [id number] [place] [address] [place] Procalcitonin SerPl-mCncon 0 12-01-2024 Procalcitonin [Mass/Vol] 0.24 ng/mL High <0.09 [facility] Comment on above: Order Comment: Speci men Type: BLOOD SPECIMENOrdering Facility: [facility] Address: [address] [place] [address] Result Comment: For a guided interpretation of test results, please visit the Change in Procalcitonin Calculator, [email or web address]. Performed By: #### 1 9123-9, 37934-3, 67883-5, 08944-3, 12567-3 ####[facility]ORATORYCLIA [id number] [place] [address] [place] SEPSIS LACTATEon 12-01-2024 Lactate [Moles/Vol] 1.5 mmol/L Normal 0.5-2.0 [facility] Comment on above: Order Comment: Speci men Type: BLOOD SPECIMENOrdering Facility: [facility] Address: [address] [place] [address] Performed By: #### S LACT ####[facility]ORATORYCLIA [id number] [place] [address] [place] Sodium ?Tm Ur-sCncon 025 Sodium Unsp time (U) [Moles/Vol] 39 mmol/L Normal 14-216 [facility] Comment on above: Order Comment: Speci men Type: URINE SPECIMENOrdering Facility: [facility] Address: [address] [place] [address] Performed By: #### 3 5678-2 ####[facility] LABCLIA [id number] [facility]ENTERDESK [place] [address] [place] URINALYSIS, REFLEX MICROSCOP ICon 12-01-2024 Bacteria LM.HPF (Urine sed) [#/Area] Few Abnormal None Seen [facility] Comment on above: Order Comment: Speci men Type: URINE SPECIMENOrdering Facility: [facility] Address: [address] [place] [address] Performed By: #### L [id number] ####[facility]ORATORYCLIA [id number] [place] [address] [place] Bilirubin Ql (U) Negative Normal Negative [facility] Comment on above: Order Comment: Speci men Type: URINE SPECIMENOrdering Facility: [facility] Address: [address] [place] [address] Performed By: #### L [id number] ####[facility]ORATORYCLIA [id number] [address] Clarity (Unsp spec) Clear Normal Clear [facility] Comment on above: Order Comment: Speci men Type: URINE SPECIMENOrdering Facility: [facility] Address: [address] [place] [address] Performed By: #### L [id number] ####[facility]ORATORYCLIA [id number] [address] Color (U) Yellow Normal Yellow [facility] Comment on above: Order Comment: Speci men Type: URINE SPECIMENOrdering Facility: [facility] Address: [address] [place] [address] Performed By: #### L [id number] ####[facility]ATORYCLIA [id number] [address] Epithelial cells LM.HPF (Urine sed) [#/Area] Few Normal [facility] Comment on above: Order Comment: Speci men Type: URINE SPECIMENOrdering Facility: [facility] Address: [address] [place] [address] Performed By: #### L [id number] ####[facility]ORATORYCLIA [id number] [address] Glucose Test strip (U) [Mass/Vol] Trace Abnormal Negative [facility] Comment on above: Order Comment: Speci men Type: URINE SPECIMENOrdering Facility: [facility] Address: [address] [place] [address] Performed By: #### L [id number] ####[facility]ORATORYCLIA [id number] [address] Hemoglobin Ql (U) Negative Normal Negative [facility] Comment on above: Order Comment: Speci men Type: URINE SPECIMENOrdering Facility: [facility] Address: [address] [place] [address] Performed By: #### L [id number] ####[facility]ORATORYCLIA [id number] [address] Ketones Ql (U) Trace Abnormal Negative [facility] Comment on above: Order Comment: Speci men Type: URINE SPECIMENOrdering Facility: [facility] Address: [address] [place] [address] Performed By: #### L [id number] ####[facility]ORATORYCLIA [id number] [address] Leukocyte esterase Test strip Ql (U) Trace Abnormal Negative [facility] Comment on above: Order Comment: Speci men Type: URINE SPECIMENOrdering Facility: [facility] Address: [address] [place] [address] Performed By: #### L [id number] ####[facility]ORATORYCLIA [id number] [address] [place] [facility] Nitrite Ql (U) Negative Normal Negative [facility] Comment on above: Order Comment: Speci men Type: URINE SPECIMENOrdering Facility: [facility] Address: [address] [place] [address] Performed By: #### L [id number] ####[facility]ORATORYCLIA [id number] [address] [place] pH (U) 5.5 [pH] Normal 5.0-8.0 [facility] Comment on above: Order Comment: Speci men Type: URINE SPECIMENOrdering Facility: [facility] Address: [address] [place] [address] Performed By: #### L [id number] ####[facility]ATORYCLIA [id number] [address] [place] Protein (U) [Mass/Vol] 2+ Abnormal Negative [facility] Comment on above: Order Comment: Speci men Type: URINE SPECIMENOrdering Facility: [facility] Address: [address] [place] [address] Performed By: #### L [id number] ####[facility]ORATORYCLIA [id number] [place] [address] [place] RBC LM.HPF (Urine sed) [#/Area] 0-3 /HPF Normal 0-3 /HPF [facility] Comment on above: Order Comment: Speci men Type: URINE SPECIMENOrdering Facility: [facility] Address: [address] [place] [address] Performed By: #### L [id number] ####[facility]ORATORYCLIA [id number] [address] Specific gravity (U) [Rel density] 1.025 Normal 1.005-1.030 [facility] Comment on above: Order Comment: Speci men Type: URINE SPECIMENOrdering Facility: [facility] Address: [address] [place] [address] Performed By: #### L [id number] ####[facility]ATORYCLIA [id number] [address] Urobilinogen Ql (U) 0.2 EU/dL Normal 0.2-1.0 EU/dL [facility] Comment on above: Order Comment: Speci men Type: URINE SPECIMENOrdering Facility: [facility] Address: [address] [place] [address] Performed By: #### L [id number] ####[facility]ORATORYCLIA [id number] [address] [place] WBC LM.HPF (Urine sed) [#/Area] 6-10 /HPF Abnormal 0-5 /HPF [facility] Comment on above: Order Comment: Speci men Type: URINE SPECIMENOrdering Facility: [facility] Address: [address] [place] [address] Performed By: #### L [id number] ####[facility]ORATORYCLIA [id number] [address] Yeast.budding LM.HPF (Urine sed) [#/Area] Few Abnormal None Seen [facility] Comment on above: Order Comment: Speci men Type: URINE SPECIMENOrdering Facility: [facility] Address: [address] [place] [address] Performed By: #### L [id number] ####[facility]ORATORYCLIA [id number] [place] [address] [place] ALLIED HEALTHon 11-30-2024 ALLIED HEALTH Normal [facility] Bacteria Bld Culton 11-30-19 Bacteria identified Cx Nom (Bld) CULTURE, BLOOD: No growth 5 days Normal [facility] Comment on above: Performed By: #### 6 00-7 ####[facility] LABCLIA [id number] [place] [address] [place] Bacteria identified Cx Nom (Bld) CULTURE, BLOOD: No growth 5 days Normal [facility] Comment on above: Performed By: #### 6 00-7 ####[facility] LABCLIA [id number] [place] [address] [place] Basic metabolic 2000 panelon 11-30-2024 Anion gap [Moles/Vol] 12 mmol/L Normal 8-15 [facility] Comment on above: Order Comment: Speci men Type: BLOOD SPECIMENOrdering Facility: [facility] Address: [address] [place] [address] Performed By: #### 2 4320-2, ####[facility]ORATORYCLIA [id number] [place] [address] [place] Calcium [Mass/Vol] 9.1 mg/dL Normal 8.5-10.2 [facility] Comment on above: Order Comment: Speci men Type: BLOOD SPECIMENOrdering Facility: [facility] Address: [address] [place] [address] Performed By: #### 2 4321-2, ####[facility]ORATORYCLIA [id number] [place] [address] [place] Chloride [Moles/Vol] 95 mmol/L Low 98-107 [facility] Comment on above: Order Comment: Speci men Type: BLOOD SPECIMENOrdering Facility: [facility] Address: [address] [place] [address] Performed By: #### 2 4321-2, ####[facility]ORATORYCLIA [id number] [place] [address] [place] CO2 [Moles/Vol] 25 mmol/L Normal 22-30 [facility] Comment on above: Order Comment: Speci men Type: BLOOD SPECIMENOrdering Facility: [facility] Address: [address] [place] [id number] Performed By: #### 2 4321-2, ####[facility]ORATORYCLIA [id number] [place] [id number] [place] [facility] Creatinine [Mass/Vol] 0.86 mg/dL Normal 0.58-0.96 [facility] Comment on above: Order Comment: Fan meade Type: BLOOD SPECIMENOrdering Facility: [facility] Address: [address] [place] [address] Performed By: #### 2 4321-2, ####[facility]ORATORYCLIA [id number] [place] [id number] [facility] Creatinine and Glomerular filtration rate.predicted panel (S/P/Bld) 65 mL/min/1.73m??? Normal >=60 [facility] Comment on above: Order Comment: Fan [place] Type: BLOOD SPECIMENOrdering Facility: [facility] Address: [address] [place] [address] Result Comment: Hilda mated Glomerular Filtration Rate [...] Performed By: #### 2 4321-2, ####[facility]ORATORYCLIA [id number] [place] [id number] [place] Glucose [Mass/Vol] 237 mg/dL High 74-99 [facility] Comment on above: Order Comment: [place] Type: BLOOD SPECIMENOrdering Facility: [facility] Address: [address] [place] [address] Result Comment: The [place] [employer] Association (ADA) provides guidance for cutoff [...] Standards of Medical Care in Diabetes 2016, [place] [employer]. Diabetes Care. 2016.39(Suppl 1). Performed By: #### 2 432-2, ####[facility]ORATORYCLIA [id number] [address] [place] Potassium [Moles/Vol] 4.2 mmol/L Normal 3.7-5.1 [facility] Comment on above: Order Comment: [place] Type: BLOOD SPECIMENOrdering Facility: [facility] Address: [address] [place] [address] Performed By: #### 2 4320-12, ####[facility]ORATORYCLIA [id number] [address] [place] Sodium [Moles/Vol] 132 mmol/L Low 136-144 [facility] Comment on above: Order Comment: Fan [place] Type: BLOOD SPECIMENOrdering Facility: [facility] Address: [address] [place] [address] Performed By: #### 2 2, ####[facility]ORATORYCLIA [id number] [address] [place] Urea nitrogen [Mass/Vol] 26 mg/dL High 7-21 [facility] Comment on above: Order Comment: Fan [place] Type: BLOOD SPECIMENOrdering Facility: [facility] Address: [address] [place] [address] Performed By: #### 2 2, ####[facility]ORATORYCLIA [id number] [place] [address] [place] CASE MANAGEMon 11-30-2024 CASE MANAGEM [facility] CASE MANAGEM [facility] CBC W Auto Differential pane l (Bld)on 11-30-2024 Basophils (Bld) [#/Vol] 0.05 10*3/uL Normal <0.11 [facility] Comment on above: Order Comment: Speci men Type: BLOOD SPECIMENOrdering Facility: [facility] Address: [address] [place] [address] Performed By: #### 5 7021-8 ####[facility]ORATORYCLIA [id number] [address] [place] Basophils/100 WBC (Bld) 0.3 % Normal [place] Comment on above: Order Comment: Speci men Type: BLOOD SPECIMENOrdering Facility: [facility] Address: [address] [place] [address] Performed By: #### 5 7021-8 ####[facility]ORATORYCLIA [id number] [place] [address] [place] Differential cell count method Nom (Bld) Auto Normal [facility] Comment on above: Order Comment: Speci men Type: BLOOD SPECIMENOrdering Facility: [facility] Address: [address] [place] [address] Performed By: #### 5 7021-8 ####[facility]ORATORYCLIA [id number] [place] [address] [place] Eosinophils (Bld) [#/Vol] 0.27 10*3/uL Normal <0.46 [facility] Comment on above: Order Comment: Speci men Type: BLOOD SPECIMENOrdering Facility: [facility] Address: [address] [place] [address] Performed By: #### 5 7021-8 ####[facility]ORATORYCLIA [id number] [address] [place] Eosinophils/100 WBC (Bld) 1.8 % Normal [facility] Comment on above: Order Comment: Speci men Type: BLOOD SPECIMENOrdering Facility: [facility] Address: [address] [place] [address] Performed By: #### 5 7021-8 ####[facility] LABORATORYCLIA [id number] [place] [address] [place] Erythrocyte distribution width (RBC) [Ratio] 15.6 % High 11.5-15.0 [facility] Comment on above: Order Comment: Speci men Type: BLOOD SPECIMENOrdering Facility: [facility] Address: [address] [place] [address] Performed By: #### 5 7021-8 ####[facility] LABORATORYCLIA [id number] [place] [address] [place] Hematocrit (Bld) [Volume fraction] 29.9 % Low 36.0-46.0 [facility] Comment on above: Order Comment: Speci men Type: BLOOD SPECIMENOrdering Facility: [facility] Address: [address] [place] [address] Performed By: #### 5 7021-8 ####[facility] LABORATORYCLIA [id number] [place] [address] [place] Hemoglobin (Bld) [Mass/Vol] 9.9 g/dL Low 11.5-15.5 [facility] Comment on above: Order Comment: Speci men Type: BLOOD SPECIMENOrdering Facility: [facility] Address: [address] [place] [address] Performed By: #### 5 7021-8 ####[facility] LABORATORYCLIA [id number] [place] [address] [place] Immature granulocytes (Bld) [#/Vol] 0.24 10*3/uL High <0.10 [facility] Comment on above: Order Comment: Speci men Type: BLOOD SPECIMENOrdering Facility: [facility] Address: [address] [place] [address] Performed By: #### 5 7021-8 ####[facility] LABORATORYCLIA [id number] [place] [address] [place] Immature granulocytes/100 WBC (Bld) 1.6 % Normal [facility] Comment on above: Order Comment: Speci men Type: BLOOD SPECIMENOrdering Facility: [facility] Address: [address] [place] [address] Performed By: #### 5 7021-8 ####[facility] LABORATORYCLIA [id number] [place] [address] [place] Lymphocytes (Bld) [#/Vol] 0.92 10*3/uL Low 1.00-4.00 [facility] Comment on above: Order Comment: Speci men Type: BLOOD SPECIMENOrdering Facility: [facility] Address: [address] [place] [address] Performed By: #### 5 7021-8 ####[facility] LABORATORYCLIA [id number] [address] Lymphocytes/100 WBC (Bld) 6.1 % Normal [facility] Comment on above: Order Comment: Speci men Type: BLOOD SPECIMENOrdering Facility: [facility] Address: [address] [place] [address] Performed By: #### 5 7021-8 ####[facility] LABORATORYCLIA [id number] [address] [place] [facility] MCH (RBC) [Entitic mass] 28.3 pg Normal 26.0-34.0 [facility] Comment on above: Order Comment: Speci men Type: BLOOD SPECIMENOrdering Facility: [facility] Address: [address] [place] [address] Performed By: #### 5 7021-8 ####[facility] LABORATORYCLIA [id number] [address] [place] [facility] MCHC (RBC) [Mass/Vol] 33.1 g/dL Normal 30.5-36.0 [facility] Comment on above: Order Comment: Speci men Type: BLOOD SPECIMENOrdering Facility: [facility] Address: [address] [place] [address] Performed By: #### 5 7021-8 ####[facility] LABORATORYCLIA [id number] [address] MCV (RBC) [Entitic vol] 85.4 fL Normal 80.0-100.0 M [facility] Comment on above: Order Comment: Speci men Type: BLOOD SPECIMENOrdering Facility: [facility] Address: [address] [place] [address] Performed By: #### 5 7021-8 ####[facility] LABORATORYCLIA [id number] [address] Monocytes (Bld) [#/Vol] 0.99 10*3/uL High <0.87 [facility] Comment on above: Order Comment: Speci men Type: BLOOD SPECIMENOrdering Facility: [facility] Address: [address] [place] [address] Performed By: #### 5 7021-8 ####[facility] LABORATORYCLIA [id number] [place] [address] [place] Monocytes/100 WBC (Bld) 6.6 % Normal [place] Comment on above: Order Comment: Speci men Type: BLOOD SPECIMENOrdering Facility: [facility] Address: [address] [place] [address] Performed By: #### 5 7021-8 ####[facility] LABORATORYCLIA [id number] [place] [address] [place] Neutrophils (Bld) [#/Vol] 12.52 10*3/uL High 1.45-7.50 [facility] Comment on above: Order Comment: Speci men Type: BLOOD SPECIMENOrdering Facility: [facility] Address: [address] [place] [address] Performed By: #### 5 7021-8 ####[facility] LABORATORYCLIA [id number] [place] [address] [place] Neutrophils/100 WBC (Bld) 83.6 % Normal [facility] Comment on above: Order Comment: Speci men Type: BLOOD SPECIMENOrdering Facility: [facility] Address: [address] [place] [address] Performed By: #### 5 7021-8 ####[facility] LABORATORYCLIA [id number] [place] [address] [place] Nucleated RBC (Bld) [#/Vol] 10*3/uL Normal <0.01 [facility] Comment on above: Order Comment: Speci men Type: BLOOD SPECIMENOrdering Facility: [facility] Address: [address] [place] [address] Performed By: #### 5 7021-8 ####[facility] LABORATORYCLIA [id number] [place] [address] [place] Nucleated RBC/100 WBC (Bld) [Ratio] 0.0 /100 WBC Normal [facility] Comment on above: Order Comment: Speci men Type: BLOOD SPECIMENOrdering Facility: [facility] Address: [facility] [place] [address] Performed By: #### 5 7021-8 ####[facility] LABORATORYCLIA [id number] [place] [address] [place] Platelet mean volume (Bld) [Entitic vol] 8.6 fL Low 9.0-12.7 [facility] Comment on above: Order Comment: Speci men Type: BLOOD SPECIMENOrdering Facility: [facility] Address: [facility] [place] [address] Performed By: #### 5 7021-8 ####[facility] LABORATORYCLIA [id number] [place] [address] [place] Platelets (Bld) [#/Vol] 436 10*3/uL High 150-400 [facility] Comment on above: Order Comment: Speci men Type: BLOOD SPECIMENOrdering Facility: [facility] Address: [facility] [place] [address] Performed By: #### 5 7021-8 ####[facility] LABORATORYCLIA [id number] [place] [address] [place] RBC (Bld) [#/Vol] 3.50 10*6/uL Low 3.90-5.20 [facility] Comment on above: Order Comment: Speci men Type: BLOOD SPECIMENOrdering Facility: [facility] Address: [facility] [place] [place] [id number] Performed By: #### 5 7021-8 ####[facility] LABORATORYCLIA [id number] [place] [address] [place] WBC (Bld) [#/Vol] 14.99 10*3/uL High 3.70-11.00 [facility] Comment on above: Order Comment: Speci men Type: BLOOD SPECIMENOrdering Facility: [facility] Address: [address] [place] [place] [address] [address] Performed By: #### 5 7021-8 ####[facility] LABORATORYCLIA [id number] [address] CONSULT PROGon 11-30-2024 CONSULT PROG Normal [facility] CONSULT PROG Normal [facility] Magnesium SerPl-mCncon 11-30 Magnesium [Mass/Vol] 1.6 mg/dL Low 1.7-2.3 [facility] Comment on above: Order Comment: Speci men Type: BLOOD SPECIMENOrdering Facility: [facility] Address: [address] [place] [address] Performed By: #### 2 4321-2, 97455-7 ####[facility] LABORATORYCLIA [id number] [address] Urinalysis complete panel (U )on 11-30-2024 Bacteria LM.HPF (Urine sed) [#/Area] Few Abnormal None Seen [facility] Comment on above: Order Comment: Speci men Type: URINE SPECIMENOrdering Facility: [facility] Address: [address] [place] [address] Performed By: #### 2 4356-8 ####[facility] LABORATORYCLIA [id number] [address] Bilirubin Ql (U) Negative Normal Negative [facility] Comment on above: Order Comment: Speci men Type: URINE SPECIMENOrdering Facility: [facility] Address: [address] [place] [address] Performed By: #### 2 4356-8 ####[facility] LABORATORYCLIA [id number] [address] [place] Clarity (Unsp spec) Clear Normal Clear [facility] Comment on above: Order Comment: Speci men Type: URINE SPECIMENOrdering Facility: [facility] Address: [address] [place] [address] Performed By: #### 2 4356-8 ####[facility] LABORATORYCLIA [id number] [address] Color (U) Yellow Normal Yellow [facility] Comment on above: Order Comment: Speci men Type: URINE SPECIMENOrdering Facility: [facility] Address: [address] [place] [address] Result Comment: Urin e received in non-preservative tube. Interpret results with caution. To ensure optimal and accurate results, transfer urine to the BD Vacutainer Plus urine preservative tube. Performed By: #### 2 4356-8 ####VILL[facility] LABORATORYCLIA [id number] [address] [place] [facility] Epithelial cells LM.HPF (Urine sed) [#/Area] Few Normal [facility] Comment on above: Order Comment: Speci men Type: URINE SPECIMENOrdering Facility: [facility] Address: [address] [place] [address] Performed By: #### 2 4356-8 ####[facility] LABORATORYCLIA [id number] [address] [place] Glucose Test strip (U) [Mass/Vol] 1+ Abnormal Negative [facility] Comment on above: Order Comment: Speci men Type: URINE SPECIMENOrdering Facility: [facility] Address: [address] [place] [address] Performed By: #### 2 4356-8 ####VILLAR[facility] LABORATORYCLIA [id number] [place] [address] [place] Hemoglobin Ql (U) Negative Normal Negative [facility] Comment on above: Order Comment: Speci men Type: URINE SPECIMENOrdering Facility: [facility] Address: [address] [place] [address] Performed By: #### 2 4356-8 ####V[facility] LABORATORYCLIA [id number] [place] [address] [place] Ketones Ql (U) Trace Abnormal Negative [facility] Comment on above: Order Comment: Speci men Type: URINE SPECIMENOrdering Facility: [facility] Address: [address] [place] [address] Performed By: #### 2 4356-8 ####[facility] LABORATORYCLIA [id number] [address] Leukocyte esterase Test strip Ql (U) Trace Abnormal Negative [facility] Comment on above: Order Comment: Speci men Type: URINE SPECIMENOrdering Facility: [facility] Address: [address] [place] [address] Performed By: #### 2 4356-8 ####VILLAR[facility] LABORATORYCLIA [id number] [place] [address] [place] Nitrite Ql (U) Negative Normal Negative [facility] Comment on above: Order Comment: Speci men Type: URINE SPECIMENOrdering Facility: [facility] Address: [address] [place] [address] Performed By: #### 2 4356-8 ####[facility] LABORATORYCLIA [id number] [address] [place] pH (U) 6.5 [pH] Normal 5.0-8.0 [facility] Comment on above: Order Comment: Speci men Type: URINE SPECIMENOrdering Facility: [facility] Address: [address] [place] [address] Performed By: #### 2 4356-8 ####[facility] LABORATORYCLIA [id number] [address] [place] Protein (U) [Mass/Vol] 1+ Abnormal Negative [facility] Comment on above: Order Comment: Speci men Type: URINE SPECIMENOrdering Facility: [facility] Address: [address] [place] [address] Performed By: #### 2 4356-8 ####[facility] LABORATORYCLIA [id number] [place] [address] [place] RBC LM.HPF (Urine sed) [#/Area] 0-3 /HPF Normal 0-3 /HPF [facility] Comment on above: Order Comment: Speci men Type: URINE SPECIMENOrdering Facility: [facility] Address: [address] [place] [address] Performed By: #### 2 4356-8 ####V[facility] LABORATORYCLIA [id number] [address] [place] Specific gravity (U) [Rel density] 1.010 Normal 1.005-1.030 [facility] Comment on above: Order Comment: Speci men Type: URINE SPECIMENOrdering Facility: [facility] Address: [address] [place] [address] Performed By: #### 2 4356-8 ####[facility] LABORATORYCLIA [id number] [place] [address] [place] Urobilinogen Ql (U) 0.2 EU/dL Normal 0.2-1.0 EU/dL [facility] Comment on above: Order Comment: Speci men Type: URINE SPECIMENOrdering Facility: [facility] Address: [address] [place] [address] Performed By: #### 2 4356-8 ####[facility] LABORATORYCLIA [id number] [place] [address] [place] WBC LM.HPF (Urine sed) [#/Area] 0-5 /HPF Normal 0-5 /HPF [facility] Comment on above: Order Comment: Speci men Type: URINE SPECIMENOrdering Facility: [facility] Address: [address] [place] [address] Performed By: #### 2 4356-8 ####[facility] LABORATORYCLIA [id number] [place] [address] [place] Yeast.budding LM.HPF (Urine sed) [#/Area] Few Abnormal None Seen [facility] Comment on above: Order Comment: Speci men Type: URINE SPECIMENOrdering Facility: [facility] Address: [address] [place] [address] Performed By: #### 2 4356-8 ####[facility] LABORATORYCLIA [id number] [place] [address] [place] XR CHEST 1V FRONTAL PORTon 0 11-30-2024 XR CHEST 1V FRONTAL PORT Normal [facility] Basic metabolic 2000 panelon 11-29-2024 Anion gap [Moles/Vol] 13 mmol/L Normal 8-15 [facility] Comment on above: Order Comment: Speci men Type: BLOOD SPECIMENOrdering Facility: [facility] Address: [address] [place] [address] Performed By: #### 2 4321-2, 81275-4 ####[facility] LABORATORYCLIA [id number] [place] [address] [place] Calcium [Mass/Vol] 8.8 mg/dL Normal 8.5-10.2 [facility] Comment on above: Order Comment: Speci men Type: BLOOD SPECIMENOrdering Facility: [facility] Address: [address] [place] [address] Performed By: #### 2 4321-2, ####V[facility] LABORATORYCLIA [id number] [place] [address] [place] Chloride [Moles/Vol] 95 mmol/L Low 98-107 [facility] Comment on above: Order Comment: Speci men Type: BLOOD SPECIMENOrdering Facility: [facility] Address: [address] [place] [address] Performed By: #### 2 4321-2, ####[facility] LABORATORYCLIA [id number] [place] [address] [place] CO2 [Moles/Vol] 25 mmol/L Normal 22-30 [facility] Comment on above: Order Comment: Speci men Type: BLOOD SPECIMENOrdering Facility: [facility] Address: [address] [place] [address] Performed By: #### 2 4321-2, ####V[facility] LABORATORYCLIA [id number] [place] [address] [place] Creatinine [Mass/Vol] 0.80 mg/dL Normal 0.58-0.96 [facility] Comment on above: Order Comment: Speci men Type: BLOOD SPECIMENOrdering Facility: [facility] Address: [address] [place] [address] Performed By: #### 2 432-2, ####V[facility] LABORATORYCLIA [id number] [place] [address] [facility] Creatinine and Glomerular filtration rate.predicted panel (S/P/Bld) 71 mL/min/1.73m??? Normal >=60 [facility] Comment on above: Order Comment: Speci men Type: BLOOD SPECIMENOrdering Facility: [facility] Address: [address] [place] [address] Result Comment: Hilda mated Glomerular Filtration Rate [...] Performed By: #### 2 43211-15, ####[facility] LABORATORYCLIA [id number] [place] [address] [place] Glucose [Mass/Vol] 287 mg/dL High 74-99 [facility] Comment on above: Order Comment: Fan meade Type: BLOOD SPECIMENOrdering Facility: [facility] Address: [address] [place] [address] Result Comment: The [place] [employer] (ADA) provides guidance for cutoff [...] Standards of Medical Care in Diabetes 2016, [place] [employer]. Diabetes Care. 2016.39(Suppl 1). Performed By: #### 2 4320-12, ####[facility] LABORATORYCLIA [id number] [place] [address] [place] Potassium [Moles/Vol] 4.1 mmol/L Normal 3.7-5.1 [facility] Comment on above: Order Comment: Fan meade Type: BLOOD SPECIMENOrdering Facility: [facility] Address: [address] [place] [address] Performed By: #### 2 4320-12, ####[facility] LABORATORYCLIA [id number] [place] [address] [place] Sodium [Moles/Vol] 133 mmol/L Low 136-144 [facility] Comment on above: Order Comment: Fan meade Type: BLOOD SPECIMENOrdering Facility: [facility] Address: [address] [place] [id number] Performed By: #### 2 4321-2, 87970-5 ####[facility] LABORATORYCLIA [id number] [place] [id number] [place] [facility] Urea nitrogen [Mass/Vol] 30 mg/dL High 7-21 [facility] Comment on above: Order Comment: Speci men Type: BLOOD SPECIMENOrdering Facility: [facility] Address: [address] [place], [place] [address] [address] Performed By: #### 2 4321-2, 36219-0 ####[facility] LABORATORYCLIA [id number] [place] [id number] [facility] [place] CASE MANAGEMon 11-29-2024 CASE MANAGEM Normal [facility] CASE MANAGEM Normal [facility] CBC panel Auto (Bld)on 11-29 Erythrocyte distribution width (RBC) [Ratio] 15.2 % High 11.5-15.0 [facility] Comment on above: Order Comment: Speci men Type: BLOOD SPECIMENOrdering Facility: [facility] Address: [facility] [place] [address] Performed By: #### 5 8410-2 ####[facility] LABORATORYCLIA [id number] [address] Hematocrit (Bld) [Volume fraction] 27.9 % Low 36.0-46.0 [facility] Comment on above: Order Comment: Speci men Type: BLOOD SPECIMENOrdering Facility: [facility] Address: [facility] [place] [address] Performed By: #### 5 8410-2 ####[facility] LABORATORYCLIA [id number] [place] [address] [place] Hemoglobin (Bld) [Mass/Vol] 9.3 g/dL Low 11.5-15.5 [facility] Comment on above: Order Comment: Speci men Type: BLOOD SPECIMENOrdering Facility: [facility] Address: [address] [place] [address] [place] [address] Performed By: #### 5 8410-2 ####[facility] LABORATORYCLIA [id number] [place] [address] MCH (RBC) [Entitic mass] 28.2 pg Normal 26.0-34.0 [facility] Comment on above: Order Comment: Speci men Type: BLOOD SPECIMENOrdering Facility: [facility] Address: [address] [place] [address] Performed By: #### 5 8410-2 ####[facility] LABORATORYCLIA [id number] [address] MCHC (RBC) [Mass/Vol] 33.3 g/dL Normal 30.5-36.0 [facility] Comment on above: Order Comment: Speci men Type: BLOOD SPECIMENOrdering Facility: [facility] Address: [address] [place] [address] Performed By: #### 5 8410-2 ####[facility] LABORATORYCLIA [id number] [address] MCV (RBC) [Entitic vol] 84.5 fL Normal 80.0-100.0 [place] Comment on above: Order Comment: Speci men Type: BLOOD SPECIMENOrdering Facility: [facility] Address: [address] [place] [address] Performed By: #### 5 8410-2 ####[facility] LABORATORYCLIA [id number] [address] Nucleated RBC (Bld) [#/Vol] 10*3/uL Normal <0.01 [facility] Comment on above: Order Comment: Speci men Type: BLOOD SPECIMENOrdering Facility: [facility] Address: [address] [place] [address] Performed By: #### 5 8410-2 ####[facility] LABORATORYCLIA [id number] [address] Platelet mean volume (Bld) [Entitic vol] 8.8 fL Low 9.0-12.7 [facility] Comment on above: Order Comment: Speci men Type: BLOOD SPECIMENOrdering Facility: [facility] Address: [address] [place] [address] Performed By: #### 5 8410-2 ####[facility] LABORATORYCLIA [id number] [address] Platelets (Bld) [#/Vol] 425 10*3/uL High 150-400 [facility] Comment on above: Order Comment: Speci men Type: BLOOD SPECIMENOrdering Facility: [facility] Address: [address] [place] [address] Performed By: #### 5 8410-2 ####[facility] LABORATORYCLIA [id number] [place] [address] [place] RBC (Bld) [#/Vol] 3.30 10*6/uL Low 3.90-5.20 [facility] Comment on above: Order Comment: Speci men Type: BLOOD SPECIMENOrdering Facility: [facility] Address: [address] [place] [address] Performed By: #### 5 8410-2 ####[facility] LABORATORYCLIA [id number] [address] WBC (Bld) [#/Vol] 12.17 10*3/uL High 3.70-11.00 [facility] Comment on above: Order Comment: Speci men Type: BLOOD SPECIMENOrdering Facility: [facility] Address: [address] [place] [address] Performed By: #### 5 8410-2 ####[facility] LABORATORYCLIA [id number] [address] CONSULT PROGon 11-29-2024 CONSULT PROG Normal [facility] CONSULT PROG Normal [facility] Magnesium SerPl-mCncon 11-29 Magnesium [Mass/Vol] 1.4 mg/dL Low 1.7-2.3 [facility] Comment on above: Order Comment: Speci men Type: BLOOD SPECIMENOrdering Facility: [facility] Address: [address] [place] [address] Performed By: #### 2 4321-2, 61816-3 ####[facility] LABORATORYCLIA [id number] [place] [id number] [facility] [place] Basic metabolic 2000 panelon 11-28-2024 Anion gap [Moles/Vol] 14 mmol/L Normal 8-15 [facility] Comment on above: Order Comment: Speci men Type: BLOOD SPECIMENOrdering Facility: [facility] Address: [address] [place] [phone] Performed By: #### 2 4321-2, , 2776-11 ####[facility] LABORATORYCLIA [id number] [place] [address] [place] Calcium [Mass/Vol] 9.4 mg/dL Normal 8.5-10.2 [facility] Comment on above: Order Comment: Speci men Type: BLOOD SPECIMENOrdering Facility: [facility] Address: [address] [place] [address] Performed By: #### 2 4321-2, , 2776-11 ####[facility] LABORATORYCLIA [id number] [place] [address] [place] Chloride [Moles/Vol] 96 mmol/L Low 98-107 [facility] Comment on above: Order Comment: Speci men Type: BLOOD SPECIMENOrdering Facility: [facility] Address: [address] [place] [address] Performed By: #### 2 4321-2, , 2776-11 ####[facility] LABORATORYCLIA [id number] [place] [address] [place] CO2 [Moles/Vol] 25 mmol/L Normal 22-30 [facility] Comment on above: Order Comment: Speci men Type: BLOOD SPECIMENOrdering Facility: [facility] Address: [address] [place] [phone] Performed By: #### 2 4321-2, , 2776-11 ####[facility] LABORATORYCLIA [id number] [place] [address] [place] Creatinine [Mass/Vol] 0.80 mg/dL Normal 0.58-0.96 [facility] Comment on above: Order Comment: Speci men Type: BLOOD SPECIMENOrdering Facility: [facility] Address: [address] [place] [phone] Performed By: #### 2 4321-2, , 2776-11 ####V[facility] LABORATORYCLIA [id number] [place] [address] [place] Creatinine and Glomerular filtration rate.predicted panel (S/P/Bld) 71 mL/min/1.73m??? Normal >=60 [facility] Comment on above: Order Comment: Fan meade Type: BLOOD SPECIMENOrdering Facility: [facility] Address: [address] [place] [address] Result Comment: Hilda mated Glomerular Filtration Rate [...] #### 2 4321-2, , 2776-11 ####V[facility] LABORATORYCLIA [id number] [place] [id number] [place] Glucose [Mass/Vol] 149 mg/dL High 74-99 [facility] Comment on above: Order Comment: Fan meade Type: BLOOD SPECIMENOrdering Facility: [facility] Address: [address] [place] [address] Result Comment: The [place] Diabetes [employer] (ADA) provides guidance for cutoff [...] Standards of Medical Care in Diabetes 2016, [place] [employer]. Diabetes Care. 2016.39(Suppl 1). Performed By: #### 2 4321-2, , 2776-11 ####[facility] LABORATORYCLIA [id number] [place] [address] [place] Potassium [Moles/Vol] 4.6 mmol/L Normal 3.7-5.1 [facility] Comment on above: Order Comment: Speci men Type: BLOOD SPECIMENOrdering Facility: [facility] Address: [address] [place] [address] Performed By: #### 2 4321-2, 91123-1, 2776- ####V[facility] LABORATORYCLIA [id number] [place] [address] [place] Sodium [Moles/Vol] 135 mmol/L Low 136-144 [facility] Comment on above: Order Comment: Speci men Type: BLOOD SPECIMENOrdering Facility: [facility] Address: [address] [place] [address] Performed By: #### 2 4321-2, , 2776-11 ####[facility] LABORATORYCLIA [id number] [place] [address] [place] Urea nitrogen [Mass/Vol] 28 mg/dL High 7-21 [facility] Comment on above: Order Comment: Speci men Type: BLOOD SPECIMENOrdering Facility: [facility] Address: [address] [place] [address] Performed By: #### 2 4321-2, , 2776-11 ####V[facility] LABORATORYCLIA [id number] [address] [place] CASE MANAGEMon 11-28-2024 CASE MANAGEM Normal [facility] CBC W Auto Differential pane l (Bld)on 11-28-2024 Basophils (Bld) [#/Vol] 0.05 10*3/uL Normal <0.11 [facility] Comment on above: Order Comment: Speci men Type: BLOOD SPECIMENOrdering Facility: [facility] Address: [address] [place] [address] Performed By: #### 5 7021-8 ####V[facility] LABORATORYCLIA [id number] [place] [address] [place] Basophils/100 WBC (Bld) 0.5 % Normal [place] Comment on above: Order Comment: Speci men Type: BLOOD SPECIMENOrdering Facility: [facility] Address: [address] [place] [address] Performed By: #### 5 7021-8 ####V[facility] LABORATORYCLIA [id number] [address] [place] Differential cell count method Nom (Bld) Auto Normal [facility] Comment on above: Order Comment: Speci men Type: BLOOD SPECIMENOrdering Facility: [facility] Address: [address] [place] [address] Performed By: #### 5 7021-8 ####V[facility] LABORATORYCLIA [id number] [place] [address] [place] Eosinophils (Bld) [#/Vol] 0.43 10*3/uL Normal <0.46 [facility] Comment on above: Order Comment: Speci men Type: BLOOD SPECIMENOrdering Facility: [facility] Address: [address] [place] [address] Performed By: #### 5 7021-8 ####VILL[facility] LABORATORYCLIA [id number] [address] [place] Eosinophils/100 WBC (Bld) 3.9 % Normal [facility] Comment on above: Order Comment: Speci men Type: BLOOD SPECIMENOrdering Facility: [facility] Address: [address] [place] [address] Performed By: #### 5 7021-8 ####V[facility] LABORATORYCLIA [id number] [address] Erythrocyte distribution width (RBC) [Ratio] 15.3 % High 11.5-15.0 [facility] Comment on above: Order Comment: Speci men Type: BLOOD SPECIMENOrdering Facility: [facility] Address: [address] [place] [address] Performed By: #### 5 7021-8 ####VILL[facility] LABORATORYCLIA [id number] [address] [place] Hematocrit (Bld) [Volume fraction] 32.2 % Low 36.0-46.0 [facility] Comment on above: Order Comment: Speci men Type: BLOOD SPECIMENOrdering Facility: [facility] Address: [address] [place], [place] [address], [place] [address] Performed By: #### 5 7021-8 ####VILLAR[facility] LABORATORYCLIA [id number] [place] [address] [place] Hemoglobin (Bld) [Mass/Vol] 10.4 g/dL Low 11.5-15.5 [facility] Comment on above: Order Comment: Speci men Type: BLOOD SPECIMENOrdering Facility: [facility] Address: [address] [place] [address] Performed By: #### 5 7021-8 ####VILL[facility] LABORATORYCLIA [id number] [place] [address] [place] Immature granulocytes (Bld) [#/Vol] 0.17 10*3/uL High <0.10 [facility] Comment on above: Order Comment: Speci men Type: BLOOD SPECIMENOrdering Facility: [facility] Address: [address] [place] [address] Performed By: #### 5 7021-8 ####VILLAR[facility] LABORATORYCLIA [id number] [place] [address] [place] Immature granulocytes/100 WBC (Bld) 1.6 % Normal [facility] Comment on above: Order Comment: Speci men Type: BLOOD SPECIMENOrdering Facility: [facility] Address: [address] [place] [address] Performed By: #### 5 7021-8 ####VILL[facility] LABORATORYCLIA [id number] [place] [address] [place] Lymphocytes (Bld) [#/Vol] 0.95 10*3/uL Low 1.00-4.00 [facility] Comment on above: Order Comment: Speci men Type: BLOOD SPECIMENOrdering Facility: [facility] Address: [address] [place] [address] Performed By: #### 5 7021-8 ####VILL[facility] LABORATORYCLIA [id number] [place] [address] [place] Lymphocytes/100 WBC (Bld) 8.7 % Normal [facility] Comment on above: Order Comment: Speci men Type: BLOOD SPECIMENOrdering Facility: [facility] Address: [facility] [place] [address] Performed By: #### 5 7021-8 ####[facility] LABORATORYCLIA [id number] [address] MCH (RBC) [Entitic mass] 27.7 pg Normal 26.0-34.0 [facility] Comment on above: Order Comment: Speci men Type: BLOOD SPECIMENOrdering Facility: [facility] Address: [address] [place] [address] Performed By: #### 5 7021-8 ####[facility] LABORATORYCLIA [id number] [address] [place] MCHC (RBC) [Mass/Vol] 32.3 g/dL Normal 30.5-36.0 [facility] Comment on above: Order Comment: Speci men Type: BLOOD SPECIMENOrdering Facility: [facility] Address: [address] [place] [address] Performed By: #### 5 7021-8 ####[facility] LABORATORYCLIA [id number] [address] MCV (RBC) [Entitic vol] 85.6 fL Normal 80.0-100.0 [place] Comment on above: Order Comment: Speci men Type: BLOOD SPECIMENOrdering Facility: [facility] Address: [address] [place] [address] Performed By: #### 5 7021-8 ####[facility] LABORATORYCLIA [id number] [address] [place] Monocytes (Bld) [#/Vol] 0.89 10*3/uL High <0.87 [facility] Comment on above: Order Comment: Speci men Type: BLOOD SPECIMENOrdering Facility: [facility] Address: [address] [place] [address] Performed By: #### 5 7021-8 ####[facility] LABORATORYCLIA [id number] [address] Monocytes/100 WBC (Bld) 8.1 % Normal [place] Comment on above: Order Comment: Speci men Type: BLOOD SPECIMENOrdering Facility: [facility] Address: [address] [place] [address] Performed By: #### 5 7021-8 ####[facility] LABORATORYCLIA [id number] [address] [place] Neutrophils (Bld) [#/Vol] 8.45 10*3/uL High 1.45-7.50 [facility] Comment on above: Order Comment: Speci men Type: BLOOD SPECIMENOrdering Facility: [facility] Address: [address] [place] [address] Performed By: #### 5 7021-8 ####[facility] LABORATORYCLIA [id number] [address] [place] Neutrophils/100 WBC (Bld) 77.2 % Normal [facility] Comment on above: Order Comment: Speci men Type: BLOOD SPECIMENOrdering Facility: [facility] Address: [address] [place] [address] Performed By: #### 5 7021-8 ####[facility] LABORATORYCLIA [id number] [place] [address] [place] Nucleated RBC (Bld) [#/Vol] 10*3/uL Normal <0.01 [facility] Comment on above: Order Comment: Speci men Type: BLOOD SPECIMENOrdering Facility: [facility] Address: [address] [place] [address] Performed By: #### 5 7021-8 ####[facility] LABORATORYCLIA [id number] [address] [place] Nucleated RBC/100 WBC (Bld) [Ratio] 0.0 /100 WBC Normal [facility] Comment on above: Order Comment: Speci men Type: BLOOD SPECIMENOrdering Facility: [facility] Address: [address] [place] [address] Performed By: #### 5 7021-8 ####[facility] LABORATORYCLIA [id number] [place] [address] [place] Platelet mean volume (Bld) [Entitic vol] 9.0 fL Normal 9.0-12.7 [facility] Comment on above: Order Comment: Speci men Type: BLOOD SPECIMENOrdering Facility: [facility] Address: [address] [place] [address] Performed By: #### 5 7021-8 ####[facility] LABORATORYCLIA [id number] [address] [place] Platelets (Bld) [#/Vol] 413 10*3/uL High 150-400 [facility] Comment on above: Order Comment: Speci men Type: BLOOD SPECIMENOrdering Facility: [facility] Address: [address] [place] [address] Performed By: #### 5 7021-8 ####[facility] LABORATORYCLIA [id number] [place] [address] [place] RBC (Bld) [#/Vol] 3.76 10*6/uL Low 3.90-5.20 [facility] Comment on above: Order Comment: Speci men Type: BLOOD SPECIMENOrdering Facility: [facility] Address: [address] [place] [address] Performed By: #### 5 7021-8 ####[facility] LABORATORYCLIA [id number] [address] [place] WBC (Bld) [#/Vol] 10.94 10*3/uL Normal 3.70-11.00 [facility] Comment on above: Order Comment: Speci men Type: BLOOD SPECIMENOrdering Facility: [facility] Address: [address] [place] [address] Performed By: #### 5 7021-8 ####[facility] LABORATORYCLIA [id number] [address] [place] CONSULT PROGon 11-28-2024 CONSULT PROG Normal [facility] CONSULT PROG Normal [facility] CONSULT PROG Normal [facility] Magnesium SerPl-mCncon 11-28 Magnesium [Mass/Vol] 1.9 mg/dL Normal 1.7-2.3 [facility] Comment on above: Order Comment: Speci men Type: BLOOD SPECIMENOrdering Facility: [facility] Address: [address] [place] [address] Performed By: #### 2 4321-2, , 2776-11 ####[facility] LABORATORYCLIA [id number] [place] [address] [place] Phosphate SerPl-mCncon 11-28 Phosphate [Mass/Vol] 3.4 mg/dL Normal 2.7-4.8 [facility] Comment on above: Order Comment: Speci men Type: BLOOD SPECIMENOrdering Facility: [facility] Address: [address] [place] [address] Performed By: #### 2 4321-2, , 2776-11 ####[facility] LABORATORYCLIA [id number] [place] [address] [place] THERAPY NTon 11-28-2024 THERAPY NT [facility] THERAPY NT [facility] ALLIED HEALTHon 11-27-2024 ALLIED HEALTH [facility] ANES POSTPROC EVALon 025 ANES POSTPROC EVAL [facility] ANES PRE-OPon 11-27-2024 ANES PRE-OP [facility] Bacteria Spec Anaerobe Culto n 11-27-2024 Bacteria identified Anaer cx Nom (Unsp spec) Negative Normal [facility] Comment on above: Performed By: #### 6 35-3, 6462-6 ####[facility] LABCL[facility] [id number] [address] [address] [place] Bacteria Wnd Culton 11-27-19 25 Bacteria identified Cx Nom (Wound) Abnormal [facility] Comment on above: Performed By: #### 6 35-3, 6462-6 ####[facility] LABCLIA [id number] [address] [address] [place] Basic metabolic 2000 panelon 11-27-2024 Anion gap [Moles/Vol] 13 mmol/L Normal 06-28 [facility] Comment on above: Order Comment: Speci men Type: BLOOD SPECIMENOrdering Facility: [facility] Address: [address] [place] [address] Performed By: #### 2 4321-2, , 2776-11 ####[facility] LABORATORYCLIA [id number] [place] [address] [place] Calcium [Mass/Vol] 9.0 mg/dL Normal 8.5-10.2 [facility] Comment on above: Order Comment: Speci men Type: BLOOD SPECIMENOrdering Facility: [facility] Address: [address] [place] [address] Performed By: #### 2 4321-2, , 2776-11 ####[facility] LABORATORYCLIA [id number] [place] [address] [place] Chloride [Moles/Vol] 94 mmol/L Low 98-107 [facility] Comment on above: Order Comment: Speci men Type: BLOOD SPECIMENOrdering Facility: [facility] Address: [address] [place] [address] Performed By: #### 2 4321-2, , 2776-11 ####[facility] LABORATORYCLIA [id number] [place] [address] [place] [facility] CO2 [Moles/Vol] 25 mmol/L Normal 22-30 [facility] Comment on above: Order Comment: Speci men Type: BLOOD SPECIMENOrdering Facility: [facility] Address: [address] [place] [address] Performed By: #### 2 4321-2, , 2776-11 ####[facility] LABORATORYCLIA [id number] [place] [address] [place] Creatinine [Mass/Vol] 0.76 mg/dL Normal 0.58-0.96 [facility] Comment on above: Order Comment: Speci men Type: BLOOD SPECIMENOrdering Facility: [facility] Address: [address] [place] [address] Performed By: #### 2 4321-2, , 2776-11 ####[facility] LABORATORYCLIA [id number] [address] Creatinine and Glomerular filtration rate.predicted panel (S/P/Bld) 75 mL/min/1.73m??? Normal >=60 [facility] Comment on above: Order Comment: Fan meade Type: BLOOD SPECIMENOrdering Facility: [facility] Address: [address] [place] [address] Result Comment: Hilda mated Glomerular Filtration Rate [...] actual GFR. Performed By: #### 2 4321-2, 95250-9, 2776-11 ####[facility] LABORATORYCLIA [id number] [place] [address] [place] Glucose [Mass/Vol] 251 mg/dL High 74-99 [facility] Comment on above: Order Comment: Fan meade Type: BLOOD SPECIMENOrdering Facility: [facility] Address: [address] [place] [address] Result Comment: The [place] [employer] (ADA) provides guidance for cutoff [...] Standards of Medical Care in Diabetes 2016, [place] [employer]. Diabetes Care. 2016.39(Suppl 1). Performed By: #### 2 4321-2, , 2776-11 ####[facility] LABORATORYCLIA [id number] [place] [address] [place] Potassium [Moles/Vol] 3.6 mmol/L Low 3.7-5.1 [facility] Comment on above: Order Comment: Fan meade Type: BLOOD SPECIMENOrdering Facility: [facility] Address: [address] [place] [place] [id number] Performed By: #### 2 4321-2, , 2776-11 ####[facility] LABORATORYCLIA [id number] [address] [place] [facility] Sodium [Moles/Vol] 132 mmol/L Low 136-144 [facility] Comment on above: Order Comment: Speci men Type: BLOOD SPECIMENOrdering Facility: [facility] Address: [address] [place] [address] Performed By: #### 2 4321-2, , 2776-11 ####[facility] LABORATORYCLIA [id number] [place] [address] [place] Urea nitrogen [Mass/Vol] 29 mg/dL High 7-21 [facility] Comment on above: Order Comment: Speci men Type: BLOOD SPECIMENOrdering Facility: [facility] Address: [address] [place] [address] Performed By: #### 2 4321-2, , 2776-11 ####[facility]ORATORYCLIA [id number] [address] [place] CASE MANAGEMon 11-27-2024 CASE MANAGEM Normal [facility] CBC panel Auto (Bld)on 11-27 Erythrocyte distribution width (RBC) [Ratio] 15.1 % High 11.5-15.0 [facility] Comment on above: Order Comment: Speci men Type: BLOOD SPECIMENOrdering Facility: [facility] Address: [address] [place] [address] Performed By: #### 5 8410-2 ####[facility] LABORATORYCLIA [id number] [address] [place] Hematocrit (Bld) [Volume fraction] 29.3 % Low 36.0-46.0 [facility] Comment on above: Order Comment: Speci men Type: BLOOD SPECIMENOrdering Facility: [facility] Address: [address] [place] [address] Performed By: #### 5 8410-2 ####[facility] LABORATORYCLIA [id number] [address] [place] Hemoglobin (Bld) [Mass/Vol] 9.9 g/dL Low 11.5-15.5 [facility] Comment on above: Order Comment: Speci men Type: BLOOD SPECIMENOrdering Facility: [facility] Address: [address] [place] [address] Performed By: #### 5 8410-2 ####[facility] LABORATORYCLIA [id number] [place] [address] [place] MCH (RBC) [Entitic mass] 28.2 pg Normal 26.0-34.0 [facility] Comment on above: Order Comment: Speci men Type: BLOOD SPECIMENOrdering Facility: [facility] Address: [address] [place] [address] Performed By: #### 5 8410-2 ####[facility] LABORATORYCLIA [id number] [address] [place] MCHC (RBC) [Mass/Vol] 33.8 g/dL Normal 30.5-36.0 [facility] Comment on above: Order Comment: Speci men Type: BLOOD SPECIMENOrdering Facility: [facility] Address: [address] [place] [address] Performed By: #### 5 8410-2 ####[facility] LABORATORYCLIA [id number] [address] [place] MCV (RBC) [Entitic vol] 83.5 fL Normal 80.0-100.0 [facility] Comment on above: Order Comment: Speci men Type: BLOOD SPECIMENOrdering Facility: [facility] Address: [address] [place] [address] Performed By: #### 5 8410-2 ####[facility] LABORATORYCLIA [id number] [address] [place] Nucleated RBC (Bld) [#/Vol] 10*3/uL Normal <0.01 [facility] Comment on above: Order Comment: Speci men Type: BLOOD SPECIMENOrdering Facility: [facility] Address: [address] [place] [address] Performed By: #### 5 8410-2 ####[facility] LABORATORYCLIA [id number] [address] [place] Platelet mean volume (Bld) [Entitic vol] 9.1 fL Normal 9.0-12.7 [facility] Comment on above: Order Comment: Speci men Type: BLOOD SPECIMENOrdering Facility: [facility] Address: [address] [place] [address] Performed By: #### 5 8410-2 ####[facility] LABORATORYCLIA [id number] [place] [address] [place] Platelets (Bld) [#/Vol] 383 10*3/uL Normal 150-400 [facility] Comment on above: Order Comment: Speci men Type: BLOOD SPECIMENOrdering Facility: [facility] Address: [address] [place] [address] Performed By: #### 5 8410-2 ####[facility] LABORATORYCLIA [id number] [place] [address] [place] RBC (Bld) [#/Vol] 3.51 10*6/uL Low 3.90-5.20 [facility] Comment on above: Order Comment: Speci men Type: BLOOD SPECIMENOrdering Facility: [facility] Address: [address] [place] [address] Performed By: #### 5 8410-2 ####[facility] LABORATORYCLIA [id number] [address] [place] WBC (Bld) [#/Vol] 11.65 10*3/uL High 3.70-11.00 [facility] Comment on above: Order Comment: Speci men Type: BLOOD SPECIMENOrdering Facility: [facility] Address: [address] [place] [address] Performed By: #### 5 8410-2 ####[facility] LABORATORYCLIA [id number] [address] [place] CONSULT PROGon 11-27-2024 CONSULT PROG Normal [facility] Magnesium SerPl-mCncon 11-27 Magnesium [Mass/Vol] 1.6 mg/dL Low 1.7-2.3 [facility] Comment on above: Order Comment: Speci men Type: BLOOD SPECIMENOrdering Facility: [facility] Address: [address] [place] [address] Performed By: #### 2 4321-2, , 2776-11 ####[facility] LABORATORYCLIA [id number] [place] [address] [place] NUTRITIONon 11-27-2024 NUTRITION Normal [facility] OPERATIVE NOon 11-27-2024 OPERATIVE NO Normal [facility] Phosphate SerPl-mCncon 11-27 Phosphate [Mass/Vol] 3.7 mg/dL Normal 2.7-4.8 [facility] Comment on above: Order Comment: Speci men Type: BLOOD SPECIMENOrdering Facility: [facility] Address: [address] [place] [address] Performed By: #### 2 4321-2, , 2776-11 ####[facility] LABORATORYCLIA [id number] [place] [address] [place] THERAPY NTon 11-27-2024 THERAPY NT Normal [facility] US ABD RIGHT UPPER QUADRANTo n 11-27-2024 US ABD RIGHT UPPER QUADRANT Normal [facility] US ABD SPLEEN -NBon 11-27-19 US ABD SPLEEN -NB Normal [facility] Basic metabolic 2000 panelon 11-26-2024 Anion gap [Moles/Vol] 10 mmol/L Normal 8-15 [facility] Comment on above: Order Comment: Speci men Type: BLOOD SPECIMENOrdering Facility: [facility] Address: [address] [place] [address] Performed By: #### 2 4321-2, , 2776-11 ####[facility] LABORATORYCLIA [id number] [place] [address] [place] Calcium [Mass/Vol] 9.2 mg/dL Normal 8.5-10.2 [facility] Comment on above: Order Comment: Speci men Type: BLOOD SPECIMENOrdering Facility: [facility] Address: [address] [place] [address] Performed By: #### 2 4321-2, , 2776-11 ####[facility] LABORATORYCLIA [id number] [address] [place] Chloride [Moles/Vol] 94 mmol/L Low 98-107 [facility] Comment on above: Order Comment: Fan [place]ade Type: BLOOD SPECIMENOrdering Facility: [facility] Address: [address] [place] [address] Performed By: #### 2 4321-2, , 2776-11 ####[facility] LABORATORYCLIA [id number] [place] [address] [place] CO2 [Moles/Vol] 28 mmol/L Normal 22-30 [facility] Comment on above: Order Comment: Fan [place]ade Type: BLOOD SPECIMENOrdering Facility: [facility] Address: [address] [place] [address] Performed By: #### 2 4321-2, , 2776-11 ####[facility] LABORATORYCLIA [id number] [address] STATES OF [facility] Creatinine [Mass/Vol] 0.98 mg/dL High 0.58-0.96 [facility] Comment on above: Order Comment: Fan [place]ade Type: BLOOD SPECIMENOrdering Facility: [facility] Address: [address] [place] [address] Performed By: #### 2 4321-2, , 2776-11 ####[facility] LABORATORYCLIA [id number] [address] Creatinine and Glomerular filtration rate.predicted panel (S/P/Bld) 56 mL/min/1.73m??? Low >=60 [facility] Comment on above: Order Comment: [place] Type: BLOOD SPECIMENOrdering Facility: [facility] Address: [address] [place] [address] Result Comment: Hilda mated Glomerular Filtration Rate [...] Performed By: #### 2 4321-2, , 2776-11 ####[facility] LABORATORYCLIA [id number] [place] [address] [place] Glucose [Mass/Vol] 244 mg/dL High 74-99 [facility] Comment on above: Order Comment: Speci men Type: BLOOD SPECIMENOrdering Facility: [facility] Address: [address] [place] [address] Result Comment: The [place] Diabetes [employer] (ADA) provides guidance for cutoff [...] Standards of Medical Care in Diabetes 2016, [place] [employer]. Diabetes Care. 2016.39(Suppl 1). Performed By: #### 2 4321-2, , 2776-11 ####[facility] LABORATORYCLIA [id number] [place] [id number] [place] Potassium [Moles/Vol] 4.4 mmol/L Normal 3.7-5.1 [facility] Comment on above: Order Comment: Fan men Type: BLOOD SPECIMENOrdering Facility: [facility] Address: [address] [place] [address] Performed By: #### 2 4321-2, , 2776-11 ####[facility] LABORATORYCLIA [id number] [place] [id number] [place] Sodium [Moles/Vol] 132 mmol/L Low 136-144 [facility] Comment on above: Order Comment: Kate[place] men Type: BLOOD SPECIMENOrdering Facility: [facility] Address: [address] [place], [place] [address] Performed By: #### 2 4321-2, , 2776-11 ####[facility] LABORATORYCLIA [id number] [place] [address] [place] Urea nitrogen [Mass/Vol] 37 mg/dL High 7-21 [facility] Comment on above: Order Comment: Speci men Type: BLOOD SPECIMENOrdering Facility: [facility] Address: [address] [place] [address] Performed By: #### 2 4321-2, 89590-6, 2777-1 ####[facility] LABORATORYCLIA [id number] [place] [address] [place] CASE MANAGEMon 11-26-2024 CASE MANAGEM Normal [facility] CBC W Auto Differential pane l (Bld)on 11-26-2024 Basophils (Bld) [#/Vol] 0.04 10*3/uL Normal <0.11 [facility] Comment on above: Order Comment: Speci men Type: BLOOD SPECIMENOrdering Facility: [facility] Address: [address] [place] [address] Performed By: #### 5 7021-8 ####[facility] LABORATORYCLIA [id number] [place] [address] [place] Basophils/100 WBC (Bld) 0.4 % Normal [place] Comment on above: Order Comment: Speci men Type: BLOOD SPECIMENOrdering Facility: [facility] Address: [address] [place] [address] Performed By: #### 5 7021-8 ####[facility] LABORATORYCLIA [id number] [place] [address] [place] Differential cell count method Nom (Bld) Auto Normal [facility] Comment on above: Order Comment: Speci men Type: BLOOD SPECIMENOrdering Facility: [facility] Address: [address] [place] [address] Performed By: #### 5 7021-8 ####[facility] LABORATORYCLIA [id number] [place] [address] [place] Eosinophils (Bld) [#/Vol] 0.41 10*3/uL Normal <0.46 [facility] Comment on above: Order Comment: Speci men Type: BLOOD SPECIMENOrdering Facility: [facility] Address: [address] [place] [address] Performed By: #### 5 7021-8 ####[facility] LABORATORYCLIA [id number] [place] [address] [place] Eosinophils/100 WBC (Bld) 3.9 % Normal [facility] Comment on above: Order Comment: Speci men Type: BLOOD SPECIMENOrdering Facility: [facility] Address: [address] [place] [address] Performed By: #### 5 7021-8 ####[facility] LABORATORYCLIA [id number] [place] [address] [place] Erythrocyte distribution width (RBC) [Ratio] 14.9 % Normal 11.5-15.0 [facility] Comment on above: Order Comment: Speci men Type: BLOOD SPECIMENOrdering Facility: [facility] Address: [address] [place] [address] Performed By: #### 5 7021-8 ####[facility] LABORATORYCLIA [id number] [place] [address] [place] Hematocrit (Bld) [Volume fraction] 30.0 % Low 36.0-46.0 [facility] Comment on above: Order Comment: Speci men Type: BLOOD SPECIMENOrdering Facility: [facility] Address: [address] [place] [address] Performed By: #### 5 7021-8 ####[facility] LABORATORYCLIA [id number] [place] [address] [place] Hemoglobin (Bld) [Mass/Vol] 10.1 g/dL Low 11.5-15.5 [facility] Comment on above: Order Comment: Speci men Type: BLOOD SPECIMENOrdering Facility: [facility] Address: [address] [place] [address] Performed By: #### 5 7021-8 ####[facility] LABORATORYCLIA [id number] [address] [place] Immature granulocytes (Bld) [#/Vol] 0.09 10*3/uL Normal <0.10 [facility] Comment on above: Order Comment: Speci men Type: BLOOD SPECIMENOrdering Facility: [facility] Address: [address] [place] [address] Performed By: #### 5 7021-8 ####[facility] LABORATORYCLIA [id number] [address] [place] Immature granulocytes/100 WBC (Bld) 0.9 % Normal [facility] Comment on above: Order Comment: Speci men Type: BLOOD SPECIMENOrdering Facility: [facility] Address: [address] [place] [address] Performed By: #### 5 7021-8 ####[facility] LABORATORYCLIA [id number] [place] [address] [place] Lymphocytes (Bld) [#/Vol] 1.04 10*3/uL Normal 1.00-4.00 [facility] Comment on above: Order Comment: Speci men Type: BLOOD SPECIMENOrdering Facility: [facility] Address: [address] [place] [address] Performed By: #### 5 7021-8 ####[facility] LABORATORYCLIA [id number] [address] [place] Lymphocytes/100 WBC (Bld) 9.9 % Normal [facility] Comment on above: Order Comment: Speci men Type: BLOOD SPECIMENOrdering Facility: [facility] Address: [address] [place] [address] Performed By: #### 5 7021-8 ####[facility] LABORATORYCLIA [id number] [address] [place] MCH (RBC) [Entitic mass] 28.1 pg Normal 26.0-34.0 [facility] Comment on above: Order Comment: Speci men Type: BLOOD SPECIMENOrdering Facility: [facility] Address: [address] [place] [address] Performed By: #### 5 7021-8 ####[facility] LABORATORYCLIA [id number] [address] [place] MCHC (RBC) [Mass/Vol] 33.7 g/dL Normal 30.5-36.0 [facility] Comment on above: Order Comment: Speci men Type: BLOOD SPECIMENOrdering Facility: [facility] Address: [address] [place] [address] Performed By: #### 5 7021-8 ####VILLARREAL LABORATORYCLIA [id number] [place] [address] [place] MCV (RBC) [Entitic vol] 83.3 fL Normal 80.0-100.0 [place] Comment on above: Order Comment: Speci men Type: BLOOD SPECIMENOrdering Facility: [facility] Address: [address] [place] [address] Performed By: #### 5 7021-8 ####VILLAR[facility] LABORATORYCLIA [id number] [place] [address] [place] Monocytes (Bld) [#/Vol] 0.93 10*3/uL High <0.87 [facility] Comment on above: Order Comment: Speci men Type: BLOOD SPECIMENOrdering Facility: [facility] Address: [address] [place] [address] Performed By: #### 5 7021-8 ####VILLARREAL LABORATORYCLIA [id number] [address] [place] Monocytes/100 WBC (Bld) 8.9 % Normal [place] Comment on above: Order Comment: Speci men Type: BLOOD SPECIMENOrdering Facility: [facility] Address: [address] [place] [address] Performed By: #### 5 7021-8 ####VILLARREAL LABORATORYCLIA [id number] [place] [address] [place] Neutrophils (Bld) [#/Vol] 7.97 10*3/uL High 1.45-7.50 [facility] Comment on above: Order Comment: Speci men Type: BLOOD SPECIMENOrdering Facility: [facility] Address: [address] [place] [address] Performed By: #### 5 7021-8 ####VILLARREAL LABORATORYCLIA [id number] [address] [place] Neutrophils/100 WBC (Bld) 76.0 % Normal [facility] Comment on above: Order Comment: Speci men Type: BLOOD SPECIMENOrdering Facility: [facility] Address: [address] [facility] [place] [place] [address] Performed By: #### 5 7021-8 ####VILLARREAL LABORATORYCLIA [id number] [place] [address] [place] Nucleated RBC (Bld) [#/Vol] 10*3/uL Normal <0.01 [facility] Comment on above: Order Comment: Speci men Type: BLOOD SPECIMENOrdering Facility: [facility] Address: [address] [place] [address] Performed By: #### 5 7021-8 ####VILLARREAL LABORATORYCLIA [id number] [address] Nucleated RBC/100 WBC (Bld) [Ratio] 0.0 /100 WBC Normal [facility] Comment on above: Order Comment: Speci men Type: BLOOD SPECIMENOrdering Facility: [facility] Address: [address] [place] [address] Performed By: #### 5 7021-8 ####VILLARREAL LABORATORYCLIA [id number] [place] [address] [place] Platelet mean volume (Bld) [Entitic vol] 9.0 fL Normal 9.0-12.7 [facility] Comment on above: Order Comment: Speci men Type: BLOOD SPECIMENOrdering Facility: [facility] Address: [address] [place] [address] Performed By: #### 5 7021-8 ####VILLARREAL LABORATORYCLIA [id number] [place] [address] [place] Platelets (Bld) [#/Vol] 381 10*3/uL Normal 150-400 [facility] Comment on above: Order Comment: Speci men Type: BLOOD SPECIMENOrdering Facility: [facility] Address: [address] [place] [address] Performed By: #### 5 7021-8 ####VILLARREAL LABORATORYCLIA [id number] [place] [address] [place] RBC (Bld) [#/Vol] 3.60 10*6/uL Low 3.90-5.20 [facility] Comment on above: Order Comment: Specleroy meade Type: BLOOD SPECIMENOrdering Facility: [facility] Address: [address] [place] [id number] Performed By: #### 5 7021-8 ####[facility] LABORATORYCLIA [id number] [address] OF [facility] WBC (Bld) [#/Vol] 10.48 10*3/uL Normal 3.70-11.00 [facility] Comment on above: Order Comment: Speci men Type: BLOOD SPECIMENOrdering Facility: [facility] Address: [address] [place] [address] Performed By: #### 5 7021-8 ####[facility] LABORATORYCLIA [id number] [address] CNPNon 11-26-2024 CNPN Telephone (HEMAST) YUSUF MEDINA ([id number]) 1935 F [facility] Date Time Provider Department 11/26/24 GRUPO MENDEZ During your visit today, we recorded the following information about you: Sue Urbina 11/26/2024 9:54 AM Signed Spoke w/ pt tube makerDemetria. Pt is still inpatient. When she is discharged she will be sent to a rehab and will not be able to make appts. Any time soon. Please advise for further requirements. Grupo Mendez MD 11/26/2024 5:[address] Mendez reviewed labs from [facility]. Dr. Mendez recommended for patient to [...] needed for sedation. - blood sugar diagnostic (DezideUCH ULTRA TEST) test strip Test blood sugar [...] this patient by: CAREGIVER José Miguel Swanson [facility] Problem List As Of Date 11/26/2024 Noted [...] (capsule) sprain (more content not included)... Normal [facility] CONSULT PROG [facility] CT ABD/PEL WO IVCONon 2024 CT ABD/PEL WO IVCON [facility] Lipase SerPl-cCncon 11-26-19 25 Lipase [Catalytic activity/Vol] 22 U/L Normal 16-61 [facility] Comment on above: Order Comment: Speci men Type: BLOOD SPECIMENOrdering Facility: [facility] Address: [address] [place] [address] Performed By: #### 3 040-3 ####[facility] LABORATORYCLIA [id number] [place] [address] [place] Magnesium SerPl-mCncon 11-26 Magnesium [Mass/Vol] 2.0 mg/dL Normal 1.7-2.3 [facility] Comment on above: Order Comment: Speci men Type: BLOOD SPECIMENOrdering Facility: [facility] Address: [address] [place] [address] Performed By: #### 2 4321-2, 04167-1, 2776- ####VILLARREAL LABORATORYCLIA [id number] [place] [address] [facility] [place] NURSING PROGon 11-26-2024 NURSING PROG Normal [facility] Phosphate SerPl-mCncon 11-26 Phosphate [Mass/Vol] 3.0 mg/dL Normal 2.7-4.8 [facility] Comment on above: Order Comment: Speci men Type: BLOOD SPECIMENOrdering Facility: [facility] Address: [address] [place] [address] Performed By: #### 2 4321-2, 08369-7, 27705-14 ####VILLARREAL LABORATORYCLIA [id number] [place] [address] [facility] Basic metabolic 2000 panelon 11-25-2024 Anion gap [Moles/Vol] 12 mmol/L Normal 8-15 [facility] Comment on above: Order Comment: Speci men Type: BLOOD SPECIMENOrdering Facility: [facility] Address: [address] [place], [place] [address] Performed By: #### 2 4321-2, ####VILLARREAL LABORATORYCLIA [id number] [place] [address] [place] Calcium [Mass/Vol] 8.9 mg/dL Normal 8.5-10.2 [facility] Comment on above: Order Comment: Speci men Type: BLOOD SPECIMENOrdering Facility: [facility] Address: [address] [place] [address] Performed By: #### 2 4321-2, ####VILLARREAL LABORATORYCLIA [id number] [place] [address] [place] Chloride [Moles/Vol] 94 mmol/L Low 98-107 [facility] Comment on above: Order Comment: Speci men Type: BLOOD SPECIMENOrdering Facility: [facility] Address: [address] [place] [address] Performed By: #### 2 4321-2, ####VILLARREAL LABORATORYCLIA [id number] [place] [address] [place] CO2 [Moles/Vol] 24 mmol/L Normal 22-30 [facility] Comment on above: Order Comment: Fan meade Type: BLOOD SPECIMENOrdering Facility: [facility] Address: [address] [place] [address] Performed By: #### 2 4321-2, ####VILLARREAL LABORATORYCLIA [id number] [place] [address] [place] Creatinine [Mass/Vol] 0.79 mg/dL Normal 0.58-0.96 [facility] Comment on above: Order Comment: Fan men Type: BLOOD SPECIMENOrdering Facility: [facility] Address: [address] [place] [address] Performed By: #### 2 432-2, ####VILLARREAL LABORATORYCLIA [id number] [address] Creatinine and Glomerular filtration rate.predicted panel (S/P/Bld) 72 mL/min/1.73m??? Normal >=60 [facility] Comment on above: Order Comment: Fan meade Type: BLOOD SPECIMENOrdering Facility: [facility] Address: [address] [place] [address] Result Comment: Hilda mated Glomerular Filtration Rate [...] Performed By: #### 2 4321-2, ####VILLARREAL LABORATORYCLIA [id number] [place] [id number] [place] Glucose [Mass/Vol] 251 mg/dL High 74-99 [facility] Comment on above: Order Comment: Fan halina Type: BLOOD SPECIMENOrdering Facility: [facility] Address: [address] [place] [address] Result Comment: The [place] [employer] (ADA) provides guidance for cutoff [...] Standards of Medical Care in Diabetes 2016, [place] [employer]. Diabetes Care. 2016.39(Suppl 1). Performed By: #### 2 4320-12, ####[facility] LABORATORYCLIA [id number] [place] [address] [place] Potassium [Moles/Vol] 3.9 mmol/L Normal 3.7-5.1 [facility] Comment on above: Order Comment: Fan meade Type: BLOOD SPECIMENOrdering Facility: [facility] Address: [address] [place] [address] Performed By: #### 2 4320-12, ####VILLARREAL LABORATORYCLIA [id number] [place] [address] [place] Sodium [Moles/Vol] 130 mmol/L Low 136-144 [facility] Comment on above: Order Comment: Fan meade Type: BLOOD SPECIMENOrdering Facility: [facility] Address: [address] [place] [address] Performed By: #### 2 4320-12, ####VILLARREAL LABORATORYCLIA [id number] [place] [address] [place] Urea nitrogen [Mass/Vol] 32 mg/dL High 7-21 [facility] Comment on above: Order Comment: Fan meade Type: BLOOD SPECIMENOrdering Facility: [facility] Address: [address] [place] [address] Performed By: #### 2 4320-12, ####VILLARREAL LABORATORYCLIA [id number] [place] [id number] [place] CBC W Auto Differential pane l (Bld)on 11-25-2024 Basophils (Bld) [#/Vol] 0.05 10*3/uL Normal <0.11 [facility] Comment on above: Order Comment: Speci men Type: BLOOD SPECIMENOrdering Facility: [facility] Address: [address] [place] [address] Performed By: #### 5 7021-8 ####VILLARREAL LABORATORYCLIA [id number] [place] [address] [place] Basophils/100 WBC (Bld) 0.4 % Normal [place] Comment on above: Order Comment: Speci men Type: BLOOD SPECIMENOrdering Facility: [facility] Address: [address] [place] [address] Performed By: #### 5 7021-8 ####VILLARREAL LABORATORYCLIA [id number] [address] [place] Differential cell count method Nom (Bld) Auto Normal [facility] Comment on above: Order Comment: Speci men Type: BLOOD SPECIMENOrdering Facility: [facility] Address: [address] [place] [address] Performed By: #### 5 7021-8 ####VILLARREAL LABORATORYCLIA [id number] [place] [address] [place] Eosinophils (Bld) [#/Vol] 0.11 10*3/uL Normal <0.46 [facility] Comment on above: Order Comment: Speci men Type: BLOOD SPECIMENOrdering Facility: [facility] Address: [address] [place] [address] Performed By: #### 5 7021-8 ####VILLARREAL LABORATORYCLIA [id number] [address] [place] [facility] Eosinophils/100 WBC (Bld) 0.8 % Normal [facility] Comment on above: Order Comment: Speci men Type: BLOOD SPECIMENOrdering Facility: [facility] Address: [address] [place] [address] Performed By: #### 5 7021-8 ####VILLARREAL LABORATORYCLIA [id number] [place] [address] [place] Erythrocyte distribution width (RBC) [Ratio] 14.9 % Normal 11.5-15.0 [facility] Comment on above: Order Comment: Speci men Type: BLOOD SPECIMENOrdering Facility: [facility] Address: [facility] [place] [address] Performed By: #### 5 7021-8 ####VILLARREAL LABORATORYCLIA [id number] [place] [address] [place] Hematocrit (Bld) [Volume fraction] 31.8 % Low 36.0-46.0 [facility] Comment on above: Order Comment: Speci men Type: BLOOD SPECIMENOrdering Facility: [facility] Address: [address] [place] [address] Performed By: #### 5 7021-8 ####VILLARREAL LABORATORYCLIA [id number] [address] [place] Hemoglobin (Bld) [Mass/Vol] 10.5 g/dL Low 11.5-15.5 [facility] Comment on above: Order Comment: Speci men Type: BLOOD SPECIMENOrdering Facility: [facility] Address: [address] [place] [address] Performed By: #### 5 7021-8 ####VILLARREAL LABORATORYCLIA [id number] [place] [address] [place] Immature granulocytes (Bld) [#/Vol] 0.09 10*3/uL Normal <0.10 [facility] Comment on above: Order Comment: Speci men Type: BLOOD SPECIMENOrdering Facility: [facility] Address: [address] [place] [address] Performed By: #### 5 7021-8 ####VILLARREAL LABORATORYCLIA [id number] [place] [address] [place] Immature granulocytes/100 WBC (Bld) 0.6 % Normal [facility] Comment on above: Order Comment: Speci men Type: BLOOD SPECIMENOrdering Facility: [facility] Address: [address] [place] [address] Performed By: #### 5 7021-8 ####VILLARRE[facility] LABORATORYCLIA [id number] [place] [address] [place] Lymphocytes (Bld) [#/Vol] 1.18 10*3/uL Normal 1.00-4.00 [facility] Comment on above: Order Comment: Speci men Type: BLOOD SPECIMENOrdering Facility: [facility] Address: [address] [place] [address] Performed By: #### 5 7021-8 ####VILLARREAL LABORATORYCLIA [id number] [address] [place] Lymphocytes/100 WBC (Bld) 8.5 % Normal [facility] Comment on above: Order Comment: Speci men Type: BLOOD SPECIMENOrdering Facility: [facility] Address: [address] [place] [address] Performed By: #### 5 7021-8 ####VILLAR[facility] LABORATORYCLIA [id number] [place] [address] [place] MCH (RBC) [Entitic mass] 27.8 pg Normal 26.0-34.0 [facility] Comment on above: Order Comment: Speci men Type: BLOOD SPECIMENOrdering Facility: [facility] Address: [address] [place] [address] Performed By: #### 5 7021-8 ####VILL[facility] LABORATORYCLIA [id number] [address] [place] MCHC (RBC) [Mass/Vol] 33.0 g/dL Normal 30.5-36.0 [facility] Comment on above: Order Comment: Speci men Type: BLOOD SPECIMENOrdering Facility: [facility] Address: [address] [place] [address] Performed By: #### 5 7021-8 ####VILLAR[facility] LABORATORYCLIA [id number] [address] [place] MCV (RBC) [Entitic vol] 84.1 fL Normal 80.0-100.0 [facility] Comment on above: Order Comment: Speci men Type: BLOOD SPECIMENOrdering Facility: [facility] Address: [address] [place] [address] Performed By: #### 5 7021-8 ####VILLARRE[facility] LABORATORYCLIA [id number] [place] [id number] [place] Monocytes (Bld) [#/Vol] 1.11 10*3/uL High <0.87 [facility] Comment on above: Order Comment: Speci men Type: BLOOD SPECIMENOrdering Facility: [facility] Address: [address] [place] [address] Performed By: #### 5 7021-8 ####V[facility] LABORATORYCLIA [id number] [place] [address] [place] Monocytes/100 WBC (Bld) 8.0 % Normal [place] Comment on above: Order Comment: Speci men Type: BLOOD SPECIMENOrdering Facility: [facility] Address: [address] [place] [address] Performed By: #### 5 7021-8 ####VILL[facility] LABORATORYCLIA [id number] [place] [address] [place] Neutrophils (Bld) [#/Vol] 11.41 10*3/uL High 1.45-7.50 [facility] Comment on above: Order Comment: Speci men Type: BLOOD SPECIMENOrdering Facility: [facility] Address: [address] [place] [address] Performed By: #### 5 7021-8 ####V[facility] LABORATORYCLIA [id number] [address] [place] Neutrophils/100 WBC (Bld) 81.7 % Normal [facility] Comment on above: Order Comment: Speci men Type: BLOOD SPECIMENOrdering Facility: [facility] Address: [address] [place] [address] Performed By: #### 5 7021-8 ####V[facility] LABORATORYCLIA [id number] [place] [address] [place] Nucleated RBC (Bld) [#/Vol] 10*3/uL Normal <0.01 [facility] Comment on above: Order Comment: Speci men Type: BLOOD SPECIMENOrdering Facility: [facility] Address: [address] [place] [address] Performed By: #### 5 7021-8 ####V[facility] LABORATORYCLIA [id number] [place] [address] [place] Nucleated RBC/100 WBC (Bld) [Ratio] 0.0 /100 WBC Normal [facility] Comment on above: Order Comment: Speci men Type: BLOOD SPECIMENOrdering Facility: [facility] Address: [address] [place] [address] Performed By: #### 5 7021-8 ####VILL[facility] LABORATORYCLIA [id number] [place] [address] [place] Platelet mean volume (Bld) [Entitic vol] 9.4 fL Normal 9.0-12.7 [facility] Comment on above: Order Comment: Speci men Type: BLOOD SPECIMENOrdering Facility: [facility] Address: [address] [place] [address] Performed By: #### 5 7021-8 ####V[facility] LABORATORYCLIA [id number] [place] [address] [place] Platelets (Bld) [#/Vol] 358 10*3/uL Normal 150-400 [facility] Comment on above: Order Comment: Speci men Type: BLOOD SPECIMENOrdering Facility: [facility] Address: [address] [place] [address] Performed By: #### 5 7021-8 ####VILL[facility] LABORATORYCLIA [id number] [place] [address] [place] RBC (Bld) [#/Vol] 3.78 10*6/uL Low 3.90-5.20 [facility] Comment on above: Order Comment: Speci men Type: BLOOD SPECIMENOrdering Facility: [facility] Address: [address] [place] [address] Performed By: #### 5 7021-8 ####V[facility] LABORATORYCLIA [id number] [place] [address] [place] WBC (Bld) [#/Vol] 13.95 10*3/uL High 3.70-11.00 [facility] Comment on above: Order Comment: Speci men Type: BLOOD SPECIMENOrdering Facility: [facility] Address: [address] [place] [address] Performed By: #### 5 7021-8 ####V[facility] LABORATORYCLIA [id number] [address] [place] CONSULT PROGon 11-25-2024 CONSULT PROG Normal [facility] CONSULT PROG Normal [facility] CONSULT PROG Normal [facility] Magnesium SerPl-mCncon 11-25 Magnesium [Mass/Vol] 1.1 mg/dL Low 1.7-2.3 [facility] Comment on above: Order Comment: Speci men Type: BLOOD SPECIMENOrdering Facility: [facility] Address: [address] [place] [address] Performed By: #### 2 4321-2, 63592-7 ####V[facility] LABORATORYCLIA [id number] [place] [address] [place] Basic metabolic 2000 panelon 11-24-2024 Anion gap [Moles/Vol] 14 mmol/L Normal 8-15 [facility] Comment on above: Order Comment: Speci men Type: BLOOD SPECIMENOrdering Facility: [facility] Address: [address] [place] [address] Performed By: #### 2 4321-2 ####VILL[facility] LABORATORYCLIA [id number] [place] [address] [place] Calcium [Mass/Vol] 8.8 mg/dL Normal 8.5-10.2 [facility] Comment on above: Order Comment: Speci men Type: BLOOD SPECIMENOrdering Facility: [facility] Address: [address] [place] [address] Performed By: #### 2 4321-2 ####VILL[facility] LABORATORYCLIA [id number] [place] [address] [place] Chloride [Moles/Vol] 95 mmol/L Low 98-107 [facility] Comment on above: Order Comment: Speci men Type: BLOOD SPECIMENOrdering Facility: [facility] Address: [address] [place] [address] Performed By: #### 2 4321-2 ####VILL[facility] LABORATORYCLIA [id number] [place] [address] [place] CO2 [Moles/Vol] 24 mmol/L Normal 22-30 [facility] Comment on above: Order Comment: Fan halina Type: BLOOD SPECIMENOrdering Facility: [facility] Address: [address] [place] [address] Performed By: #### 2 4321-2 ####VILLARRE[facility] LABORATORYCLIA [id number] [address] STATES OF [facility] Creatinine [Mass/Vol] 0.92 mg/dL Normal 0.58-0.96 [facility] Comment on above: Order Comment: Fan halina Type: BLOOD SPECIMENOrdering Facility: [facility] Address: [address] [place] [address] Performed By: #### 2 4321-2 ####[facility] LABORATORYCLIA [id number] [address] Creatinine and Glomerular filtration rate.predicted panel (S/P/Bld) 60 mL/min/1.73m??? Normal >=60 [facility] Comment on above: Order Comment: Fan halina Type: BLOOD SPECIMENOrdering Facility: [facility] Address: [address] [place] [address] Result Comment: Hilda mated Glomerular Filtration Rate [...] Performed By: #### 2 4321-2 ####VILLAR[facility] LABORATORYCLIA [id number] [address] [place] Glucose [Mass/Vol] 202 mg/dL High 74-99 [facility] Comment on above: Order Comment: Fan meade Type: BLOOD SPECIMENOrdering Facility: [facility] Address: [address] [place] [address] Result Comment: The [place] Diabetes [employer] (ADA) provides guidance for cutoff [...] Standards of Medical Care in Diabetes 2016, [place] [employer]. Diabetes Care. 2016.39(Suppl 1). Performed By: #### 2 4321-2 ####VILLARRE[facility] LABORATORYCLIA [id number] [address] Potassium [Moles/Vol] 4.0 mmol/L Normal 3.7-5.1 [facility] Comment on above: Order Comment: Fan meade Type: BLOOD SPECIMENOrdering Facility: [facility] Address: [address] [place] [address] Performed By: #### 2 4321-2 ####[facility] LABORATORYCLIA [id number] [address] Sodium [Moles/Vol] 133 mmol/L Low 136-144 [facility] Comment on above: Order Comment: Fan meade Type: BLOOD SPECIMENOrdering Facility: [facility] Address: [address] [place] [address] Performed By: #### 2 4321-2 ####[facility] LABORATORYCLIA [id number] [address] Urea nitrogen [Mass/Vol] 39 mg/dL High 7-21 [facility] Comment on above: Order Comment: Fan meade Type: BLOOD SPECIMENOrdering Facility: [facility] Address: [address] [place] [address] Performed By: #### 2 4321-2 ####[facility] LABORATORYCLIA [id number] [address] [place] CBC panel Auto (Bld)on 11-24 Erythrocyte distribution width (RBC) [Ratio] 15.2 % High 11.5-15.0 [facility] Comment on above: Order Comment: Fan meade Type: BLOOD SPECIMENOrdering Facility: [facility] Address: [address] [place] [address] Performed By: #### 5 8410-2 ####[facility] LABORATORYCLIA [id number] [address] Hematocrit (Bld) [Volume fraction] 29.3 % Low 36.0-46.0 [facility] Comment on above: Order Comment: Speci men Type: BLOOD SPECIMENOrdering Facility: [facility] Address: [address] [place] [address] Performed By: #### 5 8410-2 ####[facility] LABORATORYCLIA [id number] [address] Hemoglobin (Bld) [Mass/Vol] 9.7 g/dL Low 11.5-15.5 [facility] Comment on above: Order Comment: Speci men Type: BLOOD SPECIMENOrdering Facility: [facility] Address: [address] [place] [address] Performed By: #### 5 8410-2 ####[facility] LABORATORYCLIA [id number] [address] MCH (RBC) [Entitic mass] 27.8 pg Normal 26.0-34.0 [facility] Comment on above: Order Comment: Speci men Type: BLOOD SPECIMENOrdering Facility: [facility] Address: [address] [place] [address] Performed By: #### 5 8410-2 ####[facility] LABORATORYCLIA [id number] [address] MCHC (RBC) [Mass/Vol] 33.1 g/dL Normal 30.5-36.0 [facility] Comment on above: Order Comment: Speci men Type: BLOOD SPECIMENOrdering Facility: [facility] Address: [address] [place] [address] Performed By: #### 5 8410-2 ####[facility] LABORATORYCLIA [id number] [address] MCV (RBC) [Entitic vol] 84.0 fL Normal 80.0-100.0 [place] Comment on above: Order Comment: Speci men Type: BLOOD SPECIMENOrdering Facility: [facility] Address: [address] [place] [address] Performed By: #### 5 8410-2 ####[facility] LABORATORYCLIA [id number] [place] [address] [place] Nucleated RBC (Bld) [#/Vol] 10*3/uL Normal <0.01 [facility] Comment on above: Order Comment: Speci men Type: BLOOD SPECIMENOrdering Facility: [facility] Address: [address] [place] [address] Performed By: #### 5 8410-2 ####[facility] LABORATORYCLIA [id number] [place] [address] [place] Platelet mean volume (Bld) [Entitic vol] 9.5 fL Normal 9.0-12.7 [facility] Comment on above: Order Comment: Speci men Type: BLOOD SPECIMENOrdering Facility: [facility] Address: [address] [place] [address] Performed By: #### 5 8410-2 ####[facility] LABORATORYCLIA [id number] [place] [address] [place] Platelets (Bld) [#/Vol] 338 10*3/uL Normal 150-400 [facility] Comment on above: Order Comment: Speci men Type: BLOOD SPECIMENOrdering Facility: [facility] Address: [address] [place] [address] Performed By: #### 5 8410-2 ####[facility]ILL[facility] LABORATORYCLIA [id number] [place] [address] [place] RBC (Bld) [#/Vol] 3.49 10*6/uL Low 3.90-5.20 [facility] Comment on above: Order Comment: Speci men Type: BLOOD SPECIMENOrdering Facility: [facility] Address: [address] [place] [address] Performed By: #### 5 8410-2 ####[facility] LABORATORYCLIA [id number] [place] [address] [place] WBC (Bld) [#/Vol] 12.48 10*3/uL High 3.70-11.00 [facility] Comment on above: Order Comment: Speci men Type: BLOOD SPECIMENOrdering Facility: [facility] Address: [facility] [place] [address] Performed By: #### 5 8410-2 ####[facility] LABORATORYCLIA [id number] [place] [address] [place] CONSULTon 11-24-2024 CONSULT Normal [facility] CONSULT PROGon 11-24-2024 CONSULT PROG Normal [facility] CONSULT PROG [facility] Vancomycin Purchase SerPl-mCncon 11-24-2024 Vancomycin random [Mass/Vol] 11.6 ug/mL Normal 10.0-20.0 [facility] Comment on above: Order Comment: Speci men Type: BLOOD SPECIMENOrdering Facility: [facility] Address: [address] [place], [place] [address] [address] Result Comment: Refe rence ranges and high/low indicator flags are provided as general guidelines only. The treating physician must determine appropriate target levels/dosing based on the specific clinical situation. Performed By: #### 4 091-5 ####[facility]ORATORYCLIA [id number] [place] [address] [place] Basic metabolic 2000 panelon 11-23-2024 Anion gap [Moles/Vol] 14 mmol/L Normal 8-15 [facility] Comment on above: Order Comment: Speci men Type: BLOOD SPECIMENOrdering Facility: [facility] Address: [facility] [place] [address] Performed By: #### 2 4321-2 ####[facility] LABORATORYCLIA [id number] [place] [address] [place] Calcium [Mass/Vol] 8.7 mg/dL Normal 8.5-10.2 [facility] Comment on above: Order Comment: Speci men Type: BLOOD SPECIMENOrdering Facility: [facility] Address: [facility] [place] [address] Performed By: #### 2 4321-2 ####[facility] LABORATORYCLIA [id number] [place] [address] [place] Chloride [Moles/Vol] 98 mmol/L Normal 98-107 [facility] Comment on above: Order Comment: Speci men Type: BLOOD SPECIMENOrdering Facility: [facility] Address: [address] [place] [address] Performed By: #### 2 4321-2 ####[facility] LABORATORYCLIA [id number] [place] [address] [place] CO2 [Moles/Vol] 24 mmol/L Normal 22-30 [facility] Comment on above: Order Comment: Speci men Type: BLOOD SPECIMENOrdering Facility: [facility] Address: [address] [place] [address] Performed By: #### 2 4321-2 ####[facility] LABORATORYCLIA [id number] [place] [address] [place] Creatinine [Mass/Vol] 0.96 mg/dL Normal 0.58-0.96 [facility] Comment on above: Order Comment: Speci men Type: BLOOD SPECIMENOrdering Facility: [facility] Address: [address] [place] [address] Performed By: #### 2 4321-2 ####[facility] LABORATORYCLIA [id number] [place] [address] [place] Creatinine and Glomerular filtration rate.predicted panel (S/P/Bld) 57 mL/min/1.73m??? Low >=60 [facility] Comment on above: Order Comment: Katei men Type: BLOOD SPECIMENOrdering Facility: [facility] Address: [address] [place] [address] Result Comment: Hilda mated Glomerular Filtration Rate [...] Performed By: #### 2 4321-2 ####[facility] LABORATORYCLIA [id number] [place] [address] [place] Glucose [Mass/Vol] 193 mg/dL High 74-99 [facility] Comment on above: Order Comment: Speci men Type: BLOOD SPECIMENOrdering Facility: [facility] Address: [address] [place] [address] Result Comment: The [place] [employer] (ADA) provides guidance for cutoff [...] Standards of Medical Care in Diabetes 2016, [place] [employer]. Diabetes Care. 2016.39(Suppl 1). Performed By: #### 2 4321-2 ####[facility] LABORATORYCLIA [id number] [place] [address] [place] Potassium [Moles/Vol] 4.1 mmol/L Normal 3.7-5.1 [facility] Comment on above: Order Comment: Fan halina Type: BLOOD SPECIMENOrdering Facility: [facility] Address: [address] [place] [address] Performed By: #### 2 4321-2 ####[facility] LABORATORYCLIA [id number] [place] [address] [place] Sodium [Moles/Vol] 136 mmol/L Normal 136-144 [facility] Comment on above: Order Comment: Fan men Type: BLOOD SPECIMENOrdering Facility: [facility] Address: [address] [place] [address] Performed By: #### 2 4321-2 ####[facility] LABORATORYCLIA [id number] [place] [address] [place] Urea nitrogen [Mass/Vol] 31 mg/dL High 7-21 [facility] Comment on above: Order Comment: Fan men Type: BLOOD SPECIMENOrdering Facility: [facility] Address: [address] [place] [id number] Performed By: #### 2 4321-2 ####[facility] LABORATORYCLIA [id number] [address] [place] CASE MANAGEMon 11-23-2024 CASE MANAGEM Normal [facility] CBC panel Auto (Bld)on 11-23 Erythrocyte distribution width (RBC) [Ratio] 15.1 % High 11.5-15.0 [facility] Comment on above: Order Comment: Speci men Type: BLOOD SPECIMENOrdering Facility: [facility] Address: [address] [place] [address] Performed By: #### 5 8410-2 ####[facility] LABORATORYCLIA [id number] [address] Hematocrit (Bld) [Volume fraction] 30.5 % Low 36.0-46.0 [facility] Comment on above: Order Comment: Speci men Type: BLOOD SPECIMENOrdering Facility: [facility] Address: [address] [place] [address] Performed By: #### 5 8410-2 ####[facility] LABORATORYCLIA [id number] [address] Hemoglobin (Bld) [Mass/Vol] 10.2 g/dL Low 11.5-15.5 [facility] Comment on above: Order Comment: Speci men Type: BLOOD SPECIMENOrdering Facility: [facility] Address: [address] [place] [address] Performed By: #### 5 8410-2 ####[facility] LABORATORYCLIA [id number] [address] MCH (RBC) [Entitic mass] 28.2 pg Normal 26.0-34.0 [facility] Comment on above: Order Comment: Speci men Type: BLOOD SPECIMENOrdering Facility: [facility] Address: [address] [place] [address] Performed By: #### 5 8410-2 ####[facility] LABORATORYCLIA [id number] [address] MCHC (RBC) [Mass/Vol] 33.4 g/dL Normal 30.5-36.0 [facility] Comment on above: Order Comment: Speci men Type: BLOOD SPECIMENOrdering Facility: [facility] Address: [address] [facility] [place] [address] Performed By: #### 5 8410-2 ####[facility] LABORATORYCLIA [id number] [place] [address] [place] MCV (RBC) [Entitic vol] 84.3 fL Normal 80.0-100.0 [facility] Comment on above: Order Comment: Speci men Type: BLOOD SPECIMENOrdering Facility: [facility] Address: [address] [place] [address] Performed By: #### 5 8410-2 ####[facility] LABORATORYCLIA [id number] [address] [place] Nucleated RBC (Bld) [#/Vol] 10*3/uL Normal <0.01 [facility] Comment on above: Order Comment: Speci men Type: BLOOD SPECIMENOrdering Facility: [facility] Address: [address] [place] [address] Performed By: #### 5 8410-2 ####[facility] LABORATORYCLIA [id number] [address] [place] Platelet mean volume (Bld) [Entitic vol] 9.5 fL Normal 9.0-12.7 [facility] Comment on above: Order Comment: Speci men Type: BLOOD SPECIMENOrdering Facility: [facility] Address: [address] [place] [address] Performed By: #### 5 8410-2 ####[facility] LABORATORYCLIA [id number] [address] [place] Platelets (Bld) [#/Vol] 338 10*3/uL Normal 150-400 [facility] Comment on above: Order Comment: Speci men Type: BLOOD SPECIMENOrdering Facility: [facility] Address: [address] [place] [address] Performed By: #### 5 8410-2 ####[facility] LABORATORYCLIA [id number] [place] [address] [place] RBC (Bld) [#/Vol] 3.62 10*6/uL Low 3.90-5.20 [facility] Comment on above: Order Comment: Speci men Type: BLOOD SPECIMENOrdering Facility: [facility] Address: [address] [place] [address] Performed By: #### 5 8410-2 ####[facility] LABORATORYCLIA [id number] [place] [address] [place] WBC (Bld) [#/Vol] 15.48 10*3/uL High 3.70-11.00 [facility] Comment on above: Order Comment: Speci men Type: BLOOD SPECIMENOrdering Facility: [facility] Address: [address] [place] [address] Performed By: #### 5 8410-2 ####[facility] LABORATORYCLIA [id number] [place] [address] [facility] [place] CONSULT PROGon 11-23-2024 CONSULT PROG [facility] THERAPY NTon 11-23-2024 THERAPY NT [facility] THERAPY NT [facility] Bacteria Spec Anaerobe Culto n 11-22-2024 Bacteria identified Anaer cx Nom (Unsp spec) Negative [facility] Comment on above: Performed By: #### 6 462-6 635-3 ####[facility] LABCLIA [id number] [place] [address] [place] Bacteria Wnd Culton 11-22-19 25 Bacteria identified Cx Nom (Wound) ORGANISM ID: 1 Many Staphylococcus aureus Refer to specimen collected on 11/21/2024 at 10:34 PM [[id number]] GRAM STAIN: Rare Gram positive cocci Rare Polymorphonuclear leukocytes Abnormal [facility] Comment on above: Performed By: #### 6 462-6 635-3 ####[facility] LABCLIA [id number] [place] [id number] [place] Basic metabolic 2000 panelon 11-22-2024 Anion gap [Moles/Vol] 11 mmol/L Normal 8-15 [facility] Comment on above: Order Comment: Speci men Type: BLOOD SPECIMENOrdering Facility: [facility] Address: [address] [place] [address] Performed By: #### 2 4321-2 ####[facility] LABORATORYCLIA [id number] [address] [place] Calcium [Mass/Vol] 8.2 mg/dL Low 8.5-10.2 [facility] Comment on above: Order Comment: Speci men Type: BLOOD SPECIMENOrdering Facility: [facility] Address: [address] [place] [address] Performed By: #### 2 4321-2 ####[facility] LABORATORYCLIA [id number] [address] [place] Chloride [Moles/Vol] 97 mmol/L Low 98-107 [facility] Comment on above: Order Comment: Speci men Type: BLOOD SPECIMENOrdering Facility: [facility] Address: [address] [place] [address] Performed By: #### 2 4321-2 ####[facility] LABORATORYCLIA [id number] [address] [place] CO2 [Moles/Vol] 25 mmol/L Normal 22-30 [facility] Comment on above: Order Comment: Speci men Type: BLOOD SPECIMENOrdering Facility: [facility] Address: [address] [place] [address] Performed By: #### 2 4321-2 ####[facility] LABORATORYCLIA [id number] [address] [place] Creatinine [Mass/Vol] 0.89 mg/dL Normal 0.58-0.96 [facility] Comment on above: Order Comment: Speci men Type: BLOOD SPECIMENOrdering Facility: [facility] Address: [address] [place] [address] Performed By: #### 2 4321-2 ####[facility] LABORATORYCLIA [id number] [address] Creatinine and Glomerular filtration rate.predicted panel (S/P/Bld) 62 mL/min/1.73m??? Normal >=60 [facility] Comment on above: Order Comment: Speci men Type: BLOOD SPECIMENOrdering Facility: [facility] Address: [address] [place] [address] Result Comment: Hilda mated Glomerular Filtration Rate [...] actual GFR. Performed By: #### 2 4321-2 ####[facility] LABORATORYCLIA [id number] [place] [id number] [place] Glucose [Mass/Vol] 291 mg/dL High 74-99 [facility] Comment on above: Order Comment: Fan meade Type: BLOOD SPECIMENOrdering Facility: [facility] Address: [address] [place] [address] Result Comment: The [place] [employer] (ADA) provides guidance for cutoff [...] Standards of Medical Care in Diabetes 2016, [place] [employer]. Diabetes Care. 2016.39(Suppl 1). Performed By: #### 2 4321-2 ####[facility] LABORATORYCLIA [id number] [place] [id number] [place] Potassium [Moles/Vol] 4.1 mmol/L Normal 3.7-5.1 [facility] Comment on above: Order Comment: Fan meade Type: BLOOD SPECIMENOrdering Facility: [facility] Address: [address] [id number] Performed By: #### 2 4321-2 ####[facility] LABORATORYCLIA [id number] [place] [address] [place] Sodium [Moles/Vol] 133 mmol/L Low 136-144 [facility] Comment on above: Order Comment: Speci men Type: BLOOD SPECIMENOrdering Facility: [facility] Address: [address] [place] [address] Performed By: #### 2 4321-2 ####[facility] LABORATORYCLIA [id number] [address] [place] Urea nitrogen [Mass/Vol] 30 mg/dL High 7-21 [facility] Comment on above: Order Comment: Speci men Type: BLOOD SPECIMENOrdering Facility: [facility] Address: [address] [place] [address] Performed By: #### 2 4321-2 ####[facility] LABORATORYCLIA [id number] [address] [place] CASE MGT INIT ASSESon 2024 CASE MGT INIT [facility] CBC panel Auto (Bld)on 11-22 Erythrocyte distribution width (RBC) [Ratio] 15.2 % High 11.5-15.0 [facility] Comment on above: Order Comment: Speci men Type: BLOOD SPECIMENOrdering Facility: [facility] Address: [address] [place] [address] Performed By: #### 5 8410-2 ####[facility] LABORATORYCLIA [id number] [address] [place] Hematocrit (Bld) [Volume fraction] 28.5 % Low 36.0-46.0 [facility] Comment on above: Order Comment: Speci men Type: BLOOD SPECIMENOrdering Facility: [facility] Address: [address] [place] [address] Performed By: #### 5 8410-2 ####[facility] LABORATORYCLIA [id number] [place] [address] [place] Hemoglobin (Bld) [Mass/Vol] 9.3 g/dL Low 11.5-15.5 [facility] Comment on above: Order Comment: Speci men Type: BLOOD SPECIMENOrdering Facility: [facility] Address: [address] [place] [address] Performed By: #### 5 8410-2 ####[facility] LABORATORYCLIA [id number] [address] [place] MCH (RBC) [Entitic mass] 27.8 pg Normal 26.0-34.0 [facility] Comment on above: Order Comment: Speci men Type: BLOOD SPECIMENOrdering Facility: [facility] Address: [address] [place] [address] Performed By: #### 5 8410-2 ####[facility] LABORATORYCLIA [id number] [address] [place] MCHC (RBC) [Mass/Vol] 32.6 g/dL Normal 30.5-36.0 [facility] Comment on above: Order Comment: Speci men Type: BLOOD SPECIMENOrdering Facility: [facility] Address: [address] [place] [address] Performed By: #### 5 8410-2 ####[facility] LABORATORYCLIA [id number] [address] [place] MCV (RBC) [Entitic vol] 85.3 fL Normal 80.0-100.0 [place] Comment on above: Order Comment: Speci men Type: BLOOD SPECIMENOrdering Facility: [facility] Address: [address] [place] [address] Performed By: #### 5 8410-2 ####[facility] LABORATORYCLIA [id number] [address] Nucleated RBC (Bld) [#/Vol] 10*3/uL Normal <0.01 [facility] Comment on above: Order Comment: Speci men Type: BLOOD SPECIMENOrdering Facility: [facility] Address: [address] [place] [address] Performed By: #### 5 8410-2 ####[facility] LABORATORYCLIA [id number] [address] [place] Platelet mean volume (Bld) [Entitic vol] 9.5 fL Normal 9.0-12.7 [facility] Comment on above: Order Comment: Speci men Type: BLOOD SPECIMENOrdering Facility: [facility] Address: [address] [place], [place] [id number] Performed By: #### 5 8410-2 ####[facility]ORATORYCLIA [id number] [address] [place] Platelets (Bld) [#/Vol] 294 10*3/uL Normal 150-400 [facility] Comment on above: Order Comment: Speci men Type: BLOOD SPECIMENOrdering Facility: [facility] Address: [address] [place] [address] Performed By: #### 5 8410-2 ####[facility]ORATORYCLIA [id number] [address] [place] RBC (Bld) [#/Vol] 3.34 10*6/uL Low 3.90-5.20 [facility] Comment on above: Order Comment: Speci men Type: BLOOD SPECIMENOrdering Facility: [facility] Address: [address] [place] [address] Performed By: #### 5 8410-2 ####[facility]ORATORYCLIA [id number] [address] [place] WBC (Bld) [#/Vol] 15.66 10*3/uL High 3.70-11.00 [facility] Comment on above: Order Comment: Speci men Type: BLOOD SPECIMENOrdering Facility: [facility] Address: [address] [place] [address] Performed By: #### 5 8410-2 ####[facility] LABORATORYCLIA [id number] [place] [id number] [facility] [place] CONSULTon 11-22-2024 CONSULT Normal [facility] CONSULT PROGon 11-22-2024 CONSULT PROG Normal [facility] ESR Westergren method (Bld) [Velocity]on 11-22-2024 ESR (Bld) [Velocity] 40 mm/h High 0-20 [facility] Comment on above: Order Comment: Speci men Type: BLOOD SPECIMENOrdering Facility: [facility] Address: [address] [place] [address] Performed By: #### 4 537-7 ####[facility] LABCLIA [id number] [place] [address] [place] HISTORY PHYSICALon HISTORY PHYSICAL Normal [facility] NUTRITIONon 11-22-2024 NUTRITION Normal [facility] SEPSIS LACTATE W/ REFLEX (SE COND)on 11-22-2024 Lactate [Moles/Vol] 1.9 mmol/L Normal 0.5-2.0 [facility] Comment on above: Order Comment: Speci men Type: BLOOD SPECIMENOrdering Facility: [facility] Address: [address] [place] [address] Performed By: #### S LACT2 ####[facility] LABORATORYCLIA [id number] [place] [address] [place] US ANKLE BRACHIAL INDICESon 11-22-2024 US ANKLE BRACHIAL INDICES Normal [facility] Bacteria Bld Culton 11-21-19 25 Bacteria identified Cx Nom (Bld) CULTURE, BLOOD: No growth 5 days Normal [facility] Comment on above: Performed By: #### 6 00-7 ####[facility] LABCLIA [id number] [place] [address] [place] Bacteria identified Cx Nom (Bld) ORGANISM ID: 1 Gram positive diphtheroid-like bacilli Probable contaminant. Susceptibility testing will not be performed. Call lab within 72 hours to initiate workup if clinically indicated. GRAM STAIN: Gram positive bacilli Abnormal [facility] Comment on above: Performed By: #### 6 00-7 ####[facility] [id number] [address] [place] Bacteria Wnd Culton 11-21-19 25 Bacteria identified Cx Nom (Wound) Abnormal [facility] Comment on above: Performed By: #### 6 462-6 ####[facility] [id number] [place] [address] [place] CBC W Auto Differential pane l (Bld)on 11-21-2024 Basophils (Bld) [#/Vol] 0.04 10*3/uL Normal <0.11 [facility] Comment on above: Order Comment: Speci men Type: BLOOD SPECIMENOrdering Facility: [facility] Address: [address] [place] [address] Performed By: #### 5 5454-3 ####[facility] [id number] [place] [address] [place]#### 11801-0 ####[facility] [id number] [place] [address] [place] Basophils/100 WBC (Bld) 0.2 % Normal [place] Comment on above: Order Comment: Speci men Type: BLOOD SPECIMENOrdering Facility: [facility] Address: [address] [place] [address] Performed By: #### 5 5454-3 ####[facility] [id number] [place] [address] [place]#### 05924-7 ####[facility]ORYCL[facility] [id number] [place] [address] [place] Differential cell count method Nom (Bld) Auto Normal [facility] Comment on above: Order Comment: Speci men Type: BLOOD SPECIMENOrdering Facility: [facility] Address: [address] [place] [address] Performed By: #### 5 5454-3 ####[facility] [id number] [place] [address] [place]#### 62209-0 ####[facility]ORY[facility] [id number] [place] [address] [place] Eosinophils (Bld) [#/Vol] 10*3/uL Normal <0.46 [facility] Comment on above: Order Comment: Speci men Type: BLOOD SPECIMENOrdering Facility: [facility] Address: [address] [place] [address] Performed By: #### 5 5454-3 ####[facility] [id number] [place] [address] [place]#### 80843-4 ####[facility]ORYCL[facility] [id number] [place] [address] [place] Eosinophils/100 WBC (Bld) 0.0 % Normal [facility] Comment on above: Order Comment: Speci men Type: BLOOD SPECIMENOrdering Facility: [facility] Address: [address] [place] [address] Performed By: #### 5 5454-3 ####[facility] [id number] [place] [address] [place]#### 14561-2 ####[facility]ORYCLIA [id number] [place] [address] [place] Erythrocyte distribution width (RBC) [Ratio] 15.0 % Normal 11.5-15.0 [facility] Comment on above: Order Comment: Speci men Type: BLOOD SPECIMENOrdering Facility: [facility] Address: [address] [place] [address] Performed By: #### 5 5454-3 ####[facility] [id number] [place] [address] [place]#### 51373-6 ####[facility]ORYCLIA [id number] [place] [address] [place] Hematocrit (Bld) [Volume fraction] 32.3 % Low 36.0-46.0 [facility] Comment on above: Order Comment: Speci men Type: BLOOD SPECIMENOrdering Facility: [facility] Address: [address] [place] [address] Performed By: #### 5 5454-3 ####[facility] [id number] [place] [address] [place]#### 13604-9 ####[facility]ORYCLIA [id number] [place] [address] [place] Hemoglobin (Bld) [Mass/Vol] 10.9 g/dL Low 11.5-15.5 [facility] Comment on above: Order Comment: Speci men Type: BLOOD SPECIMENOrdering Facility: [facility] Address: [address] [place] [address] Performed By: #### 5 5454-3 ####[facility] [id number] [place] [address] [place]#### 07262-8 ####[facility]ORYCLIA [id number] [place] [address] [place] Immature granulocytes (Bld) [#/Vol] 0.13 10*3/uL High <0.10 [facility] Comment on above: Order Comment: Speci men Type: BLOOD SPECIMENOrdering Facility: [facility] Address: [address] [place] [address] Performed By: #### 5 5454-3 ####[facility] [id number] [place] [address] [place]#### 35261-6 ####[facility]ORYCLIA [id number] [place] [address] [place] Immature granulocytes/100 WBC (Bld) 0.7 % Normal [facility] Comment on above: Order Comment: Speci men Type: BLOOD SPECIMENOrdering Facility: [facility] Address: [address] [place] [address] Performed By: #### 5 5454-3 ####[facility] [id number] [place] [address] [place]#### 21652-0 ####[facility]ORYCLIA [id number] [place] [address] [place] Lymphocytes (Bld) [#/Vol] 0.76 10*3/uL Low 1.00-4.00 [facility] Comment on above: Order Comment: Speci men Type: BLOOD SPECIMENOrdering Facility: [facility] Address: [address] [place] [address] Performed By: #### 5 5454-3 ####[facility] [id number] [place] [address] [place]#### 75943-9 ####[facility] [id number] [address] [place] Lymphocytes/100 WBC (Bld) 3.8 % Normal [facility] Comment on above: Order Comment: Speci men Type: BLOOD SPECIMENOrdering Facility: [facility] Address: [address] [place] [address] Performed By: #### 5 5454-3 ####[facility] [id number] [place] [address] [place]#### 85949-6 ####[facility] [id number] [address] [place] MCH (RBC) [Entitic mass] 28.5 pg Normal 26.0-34.0 [facility] Comment on above: Order Comment: Speci men Type: BLOOD SPECIMENOrdering Facility: [facility] Address: [address] [place] [address] Performed By: #### 5 5454-3 ####[facility] [id number] [address] [place]#### 73792-8 ####[facility] [id number] [address] [place] MCHC (RBC) [Mass/Vol] 33.7 g/dL Normal 30.5-36.0 [facility] Comment on above: Order Comment: Speci men Type: BLOOD SPECIMENOrdering Facility: [facility] Address: [address] [place] [address] Performed By: #### 5 5454-3 ####[facility] [id number] [place] [address] [place]#### 88575-2 ####[facility]ORYCLIA [id number] [place] [address] [place] MCV (RBC) [Entitic vol] 84.3 fL Normal 80.0-100.0 [place] Comment on above: Order Comment: Speci men Type: BLOOD SPECIMENOrdering Facility: [facility] Address: [address] [place] [address] Performed By: #### 5 5454-3 ####[facility] [id number] [place] [address] [place] [facility] [place]#### 69643-8 ####[facility]ORYCLIA [id number] [place] [address] [place] Monocytes (Bld) [#/Vol] 0.94 10*3/uL High <0.87 [facility] Comment on above: Order Comment: Speci men Type: BLOOD SPECIMENOrdering Facility: [facility] Address: [address] [place] [address] Performed By: #### 5 5454-3 ####[facility] [id number] [place] [address] [place]#### 41554-5 ####[facility]ORYCLIA [id number] [address] [place] Monocytes/100 WBC (Bld) 4.7 % Normal [place] Comment on above: Order Comment: Speci men Type: BLOOD SPECIMENOrdering Facility: [facility] Address: [address] [place] [address] Performed By: #### 5 5454-3 ####[facility] [id number] [place] [address] [place]#### 03646-1 ####[facility]ORYCLIA [id number] [place] [address] [place] Neutrophils (Bld) [#/Vol] 17.99 10*3/uL High 1.45-7.50 [facility] Comment on above: Order Comment: Speci men Type: BLOOD SPECIMENOrdering Facility: [facility] Address: [address] [place] [address] Performed By: #### 5 5454-3 ####[facility] [id number] [place] [address] [place]#### 94466-7 ####[facility]ORYCLIA [id number] [place] [address] [place] Neutrophils/100 WBC (Bld) 90.6 % Normal [facility] Comment on above: Order Comment: Speci men Type: BLOOD SPECIMENOrdering Facility: [facility] Address: [address] [place] [address] Performed By: #### 5 5454-3 ####[facility] [id number] [place] [address] [place]#### 24120-5 ####[facility]ORYCLIA [id number] [place] [address] [place] Nucleated RBC (Bld) [#/Vol] 10*3/uL Normal <0.01 [facility] Comment on above: Order Comment: Speci men Type: BLOOD SPECIMENOrdering Facility: [facility] Address: [address] [place] [address] Performed By: #### 5 5454-3 ####[facility] [id number] [place] [address] [place]#### 89212-7 ####[facility]ORYCLIA [id number] [place] [address] [place] Nucleated RBC/100 WBC (Bld) [Ratio] 0.0 /100 WBC Normal [facility] Comment on above: Order Comment: Speci men Type: BLOOD SPECIMENOrdering Facility: [facility] Address: [address] [place] [id number] Performed By: #### 5 5454-3 ####[facility] [id number] [place] [address] [place]#### 73150-5 ####[facility]ORYCLIA [id number] [place] [address] [place] Platelet mean volume (Bld) [Entitic vol] 9.0 fL Normal 9.0-12.7 [facility] Comment on above: Order Comment: Speci men Type: BLOOD SPECIMENOrdering Facility: [facility] Address: [address] [place] [address] Performed By: #### 5 5454-3 ####[facility] [id number] [place] [address] [place]#### 84059-5 ####[facility]ORYCLIA [id number] [place] [address] [place] Platelets (Bld) [#/Vol] 326 10*3/uL Normal 150-400 [facility] Comment on above: Order Comment: Speci men Type: BLOOD SPECIMENOrdering Facility: [facility] Address: [address] [place] [address] Performed By: #### 5 5454-3 ####[facility] [id number] [place] [address] [place]#### 23359-7 ####[facility]ORYCLIA [id number] [place] [address] [place] RBC (Bld) [#/Vol] 3.83 10*6/uL Low 3.90-5.20 [facility] Comment on above: Order Comment: Speci men Type: BLOOD SPECIMENOrdering Facility: [facility] Address: [address] [place] [address] Performed By: #### 5 5454-3 ####[facility] [id number] [place] [address] [place]#### 30658-9 ####[facility]ORYCLIA [id number] [place] [address] [place] WBC (Bld) [#/Vol] 19.86 10*3/uL High 3.70-11.00 [facility] Comment on above: Order Comment: Speci men Type: BLOOD SPECIMENOrdering Facility: [facility] Address: [address] [place] [address] [place] [address] Performed By: #### 5 5454-3 ####[facility] [id number] [facility]ENTERDragan [place] [id number] [place]#### 36379-2 ####[facility]ORATORYCLIA [id number] [place] [address] [place] CRP SerPl-mCncon 11-21-2024 CRP [Mass/Vol] 3.8 mg/dL High <0.9 [facility] Comment on above: Order Comment: Speci men Type: BLOOD SPECIMENOrdering Facility: [facility] Address: [address] [place] [address] [place] [address] Performed By: #### 2 4323-8, 15813-9, 1988-03, ####[facility]ORYCLIA [id number] [place] [address] [place] Comprehensive metabolic 2000 panelon 11-21-2024 Albumin [Mass/Vol] 3.7 g/dL Low 3.9-4.9 [facility] Comment on above: Order Comment: Speci men Type: BLOOD SPECIMENOrdering Facility: [facility] Address: [address] [place], [place] [address] [address] Performed By: #### 2 4323-8, 34780-5, 1988-03, ####[facility]ORATORYCLIA [id number] [place] [address] [place] ALP [Catalytic activity/Vol] 90 U/L Normal 34-123 [facility] Comment on above: Order Comment: Speci men Type: BLOOD SPECIMENOrdering Facility: [facility] Address: [address] [place] [address] [place] [address] Performed By: #### 2 4323-8, 26048-7, 1988-03, 03392-3 ####[facility]ATORYCLIA [id number] [place] [address] [place] ALT [Catalytic activity/Vol] 10 U/L Normal 7-38 [facility] Comment on above: Order Comment: Speci men Type: BLOOD SPECIMENOrdering Facility: [facility] Address: [address] [place] [address] Performed By: #### 2 4323-8, 06403-8, 1988-03, ####[facility]ORATORYCLIA [id number] [place] [address] [place] [facility] Anion gap [Moles/Vol] 13 mmol/L Normal 8-15 [facility] Comment on above: Order Comment: Speci men Type: BLOOD SPECIMENOrdering Facility: [facility] Address: [address] [place] [address] Performed By: #### 2 4323-8, 82089-4, 1988-03, ####[facility]ORYCLIA [id number] [place] [address] [place] AST [Catalytic activity/Vol] 14 U/L Normal 13-35 [facility] Comment on above: Order Comment: Speci men Type: BLOOD SPECIMENOrdering Facility: [facility] Address: [facility] [place] [address] Performed By: #### 2 4323-8, 03101-0, 1988-03, ####[facility]ATORYCLIA [id number] [place] [address] [place] Bilirubin [Mass/Vol] 0.2 mg/dL Normal 0.2-1.3 [facility] Comment on above: Order Comment: Speci men Type: BLOOD SPECIMENOrdering Facility: [facility] Address: [address] [place] [address] Performed By: #### 2 4323-8, 10655-7, 1988-03, ####[facility]ATORYCLIA [id number] [place], [place] [address] [place] [address] [place] Calcium [Mass/Vol] 9.3 mg/dL Normal 8.5-10.2 [facility] Comment on above: Order Comment: Speci men Type: BLOOD SPECIMENOrdering Facility: [facility] Address: [facility] [place] [address] Performed By: #### 2 4323-8, 47340-5, 1988-03, ####[facility]ORYCLIA [id number] [place] [address] [place] Chloride [Moles/Vol] 96 mmol/L Low 98-107 [facility] Comment on above: Order Comment: Speci men Type: BLOOD SPECIMENOrdering Facility: [facility] Address: [address] [place] [address] Performed By: #### 2 4323-8, 59820-4, 1988-03, ####[facility]ORYCLIA [id number] [place] [id number] [place] CO2 [Moles/Vol] 25 mmol/L Normal 22-30 [facility] Comment on above: Order Comment: Fan meade Type: BLOOD SPECIMENOrdering Facility: [facility] Address: [address] [place] [address] Performed By: #### 2 4323-8, 65142-8, 1988-03, ####[facility]ORYCLIA [id number] [place] [address] [place] Creatinine [Mass/Vol] 1.02 mg/dL High 0.58-0.96 [facility] Comment on above: Order Comment: Speci men Type: BLOOD SPECIMENOrdering Facility: [facility] Address: [address] [place] [address] Performed By: #### 2 4323-8, 15497-2, 1988-03, ####[facility]ORYCLIA [id number] [place] [id number] [place] [facility] Creatinine and Glomerular filtration rate.predicted panel (S/P/Bld) 53 mL/min/1.73m??? Low >=60 [facility] Comment on above: Order Comment: Speci men Type: BLOOD SPECIMENOrdering Facility: [facility] Address: [address] [place] [address] Result Comment: Hilda mated Glomerular Filtration Rate [...] actual GFR. Performed By: #### 2 4323-8, 87884-9, 1988-03, ####[facility]ORYCLIA [id number] [place] [address] [place] Glucose [Mass/Vol] 314 mg/dL High 74-99 [facility] Comment on above: Order Comment: Fan meade Type: BLOOD SPECIMENOrdering Facility: [facility] Address: [address] [place], [place] [address] Result Comment: The [place] Diabetes Association (ADA) provides guidance for cutoff [...] Standards of Medical Care in Diabetes 2016, [place] Diabetes Association. Diabetes Care. 2016.39(Suppl 1). Performed By: #### 2 4323-8, 54702-5, 1988-03, ####[facility]ORYCLIA [id number] [place] [address] [place] Potassium [Moles/Vol] 4.7 mmol/L Normal 3.7-5.1 [facility] Comment on above: Order Comment: Fan meade Type: BLOOD SPECIMENOrdering Facility: [facility] Address: [address] [place] [address] Performed By: #### 2 4323-8, 06999-4, 1988-03, ####[facility]ORYCLIA [id number] [place] [address] [place] Protein [Mass/Vol] 6.4 g/dL Normal 6.3-8.0 [facility] Comment on above: Order Comment: Fan meade Type: BLOOD SPECIMENOrdering Facility: [facility] Address: [address] [place] [address] Performed By: #### 2 4323-8, 30705-8, 1988-03, 83076-4 ####[facility]ORYCLIA [id number] [place] [id number] [place] [facility] Sodium [Moles/Vol] 134 mmol/L Low 136-144 [facility] Comment on above: Order Comment: Speci men Type: BLOOD SPECIMENOrdering Facility: [facility] Address: [address] [place] [address] Performed By: #### 2 4323-8, 22734-1, 1988-03, 75264-5 ####[facility]ORYCLIA [id number] [place] [address] [place] Urea nitrogen [Mass/Vol] 37 mg/dL High 7-21 [facility] Comment on above: Order Comment: Speci men Type: BLOOD SPECIMENOrdering Facility: [facility] Address: [address] [place] [address] Performed By: #### 2 4323-8, 86174-7, 1988-03, 79000-9 ####[facility]ORYCLIA [id number] [address] [place] ED PROV NOTEon 11-21-2024 ED PROV NOTE Normal [facility] ED Triage Noteon 11-21-2024 ED Triage Note Normal [facility] HbA1c (Bld)on 11-21-2024 Average glucose Estimated from glycated hemoglobin (Bld) [Mass/Vol] 252 mg/dL Normal [facility] Comment on above: Order Comment: Speci men Type: BLOOD SPECIMENOrdering Facility: [facility] Address: [address] [place] [address] Result Comment: eAG: (Estimated average glucose) is a calculated value from HgbA1c and is membership sales representative of the average blood glucose level in the last 2-3 month period. Performed By: #### 5 5454-3 ####[facility] [id number] [facility] [place] [address] [place]#### 33014-0 ####[facility]ORYCLIA [id number] [address] [place] [facility] HbA1c (Bld) [Mass fraction] 10.4 % High 4.3-5.6 [facility] Comment on above: Order Comment: Fan meade Type: BLOOD SPECIMENOrdering Facility: [facility] Address: [address] [place] [address] Result Comment: [place] Diabetes Association guidelines indicate that patients with HgbA1c in the range 5.7-6.4% are at increased risk for development of diabetes, and intervention by lifestyle modification may be beneficial. HgbA1c greater or equal to 6.5% is considered diagnostic of diabetes. Performed By: #### 5 5454-3 ####[facility] [id number] [address] [place]#### 23379-9 ####[facility]ORYCLIA [id number] [address] [place] NT-proBNP SerPl-mCncon 11-21 Natriuretic peptide.B prohormone N-Terminal [Mass/Vol] 1157 pg/mL High <450 [facility] Comment on above: Order Comment: Fan meade Type: BLOOD SPECIMENOrdering Facility: [facility] Address: [address] [place] [address] Performed By: #### 2 4323-8, 26215-4, 1988-03, 01062-2 ####[facility]ORYCLIA [id number] [address] [place] Procalcitonin SerPl-mCncon 0 11-21-2024 Procalcitonin [Mass/Vol] 0.14 ng/mL High <0.09 [facility] Comment on above: Order Comment: Fan meade Type: BLOOD SPECIMENOrdering Facility: [facility] Address: [address] [place] [address] Result Comment: For a guided interpretation of test results, please visit the Change in Procalcitonin Calculator, [email or web address]. Performed By: #### 2 4323-8, 39707-8, 1988-03, 22328-0 ####[facility]ORYCLIA [id number] [place] [address] [place] SEPSIS LACTATE W/ REFLEX (IN ITIAL)on 11-21-2024 Lactate [Moles/Vol] 2.2 mmol/L High 0.5-2.0 [facility] Comment on above: Order Comment: Speci men Type: BLOOD SPECIMENOrdering Facility: [facility] Address: [address] [place] [address] Performed By: #### S LACTR ####[facility]ORATORYCLIA [id number] [place] [address] [place] XR ANKLE 3V AP/LAT/OBL RTon 11-21-2024 XR ANKLE 3V AP/LAT/OBL RT Normal [facility] CBC W Auto Differential pane l (Bld)on 11-19-2024 Basophils (Bld) [#/Vol] 0.05 10*3/uL Normal <0.11 [facility] Comment on above: Order Comment: Speci men Type: BLOOD SPECIMENOrdering Facility: [facility] Address: [address] [place] [address] Performed By: #### 5 7021-8 ####[facility] [id number] [place] [address] [place] Basophils/100 WBC (Bld) 0.5 % Normal [facility] Comment on above: Order Comment: Speci men Type: BLOOD SPECIMENOrdering Facility: [facility] Address: [address] [place] [address] Performed By: #### 5 7021-8 ####[facility] [id number] [place] [address] [place] Differential cell count method Nom (Bld) Auto Normal [facility] Comment on above: Order Comment: Speci men Type: BLOOD SPECIMENOrdering Facility: [facility] Address: [address] [place] [address] Performed By: #### 5 7021-8 ####[facility] LABCLIA [id number] [place] [address] [place] Eosinophils (Bld) [#/Vol] 0.12 10*3/uL Normal <0.46 [facility] Comment on above: Order Comment: Speci men Type: BLOOD SPECIMENOrdering Facility: [facility] Address: [address] [place] [address] Performed By: #### 5 7021-8 ####[facility] LABCLIA [id number] [place] [address] [place] Eosinophils/100 WBC (Bld) 1.3 % Normal [facility] Comment on above: Order Comment: Speci men Type: BLOOD SPECIMENOrdering Facility: [facility] Address: [address] [place] [address] Performed By: #### 5 7021-8 ####[facility] LAB[facility] [id number] [place] [address] [place] Erythrocyte distribution width (RBC) [Ratio] 14.8 % Normal 11.5-15.0 [facility] Comment on above: Order Comment: Speci men Type: BLOOD SPECIMENOrdering Facility: [facility] Address: [address] [place] [address] Performed By: #### 5 7021-8 ####[facility] [id number] [place] [address] [place] Hematocrit (Bld) [Volume fraction] 35.8 % Low 36.0-46.0 [facility] Comment on above: Order Comment: Speci men Type: BLOOD SPECIMENOrdering Facility: [facility] Address: [address] [place] [address] Performed By: #### 5 7021-8 ####[facility] [id number] [place] [address] [place] Hemoglobin (Bld) [Mass/Vol] 11.5 g/dL Normal 11.5-15.5 [facility] Comment on above: Order Comment: Speci men Type: BLOOD SPECIMENOrdering Facility: [facility] Address: [address] [place] [address] Performed By: #### 5 7021-8 ####[facility] [id number] [place] [address] [place] Immature granulocytes (Bld) [#/Vol] 0.07 10*3/uL Normal <0.10 [facility] Comment on above: Order Comment: Speci men Type: BLOOD SPECIMENOrdering Facility: [facility] Address: [address] [place] [address] Performed By: #### 5 7021-8 ####[facility] [id number] [place] [address] [place] Immature granulocytes/100 WBC (Bld) 0.7 % Normal [facility] Comment on above: Order Comment: Speci men Type: BLOOD SPECIMENOrdering Facility: [facility] Address: [address] [place] [address] Performed By: #### 5 7021-8 ####[facility] [id number] [place] [address] [place] Lymphocytes (Bld) [#/Vol] 1.19 10*3/uL Normal 1.00-4.00 [facility] Comment on above: Order Comment: Speci men Type: BLOOD SPECIMENOrdering Facility: [facility] Address: [address] [place] [address] Performed By: #### 5 7021-8 ####[facility] [id number] [place] [address] [place] Lymphocytes/100 WBC (Bld) 12.7 % Normal [facility] Comment on above: Order Comment: Speci men Type: BLOOD SPECIMENOrdering Facility: [facility] Address: [address] [place] [address] Performed By: #### 5 7021-8 ####[facility] [id number] [place] [address] [place] MCH (RBC) [Entitic mass] 28.0 pg Normal 26.0-34.0 [facility] Comment on above: Order Comment: Speci men Type: BLOOD SPECIMENOrdering Facility: [facility] Address: [address] [place] [address] Performed By: #### 5 7021-8 ####[facility] LABIA [id number] [place] [address] [place] MCHC (RBC) [Mass/Vol] 32.1 g/dL Normal 30.5-36.0 [facility] Comment on above: Order Comment: Speci men Type: BLOOD SPECIMENOrdering Facility: [facility] Address: [address] [place] [address] Performed By: #### 5 7021-8 ####[facility] LABIA [id number] [place] [address] [place] MCV (RBC) [Entitic vol] 87.1 fL Normal 80.0-100.0 [facility] Comment on above: Order Comment: Speci men Type: BLOOD SPECIMENOrdering Facility: [facility] Address: [address] [place] [address] Performed By: #### 5 7021-8 ####[facility] LABIA [id number] [place] [address] [place] Monocytes (Bld) [#/Vol] 0.67 10*3/uL Normal <0.87 [facility] Comment on above: Order Comment: Speci men Type: BLOOD SPECIMENOrdering Facility: [facility] Address: [address] [place] [address] Performed By: #### 5 7021-8 ####[facility] LABIA [id number] [address] [place] Monocytes/100 WBC (Bld) 7.1 % Normal [facility] Comment on above: Order Comment: Speci men Type: BLOOD SPECIMENOrdering Facility: [facility] Address: [address] [place] [address] Performed By: #### 5 7021-8 ####[facility] [id number] [address] [address] [place] Neutrophils (Bld) [#/Vol] 7.29 10*3/uL Normal 1.45-7.50 [facility] Comment on above: Order Comment: Speci men Type: BLOOD SPECIMENOrdering Facility: [facility] Address: [address] [place] [address] Performed By: #### 5 7021-8 ####[facility] [id number] [place] [address] [place] Neutrophils/100 WBC (Bld) 77.7 % Normal [facility] Comment on above: Order Comment: Speci men Type: BLOOD SPECIMENOrdering Facility: [facility] Address: [address] [place] [address] Performed By: #### 5 7021-8 ####[facility] [id number] [place] [address] [place] Nucleated RBC (Bld) [#/Vol] 10*3/uL Normal <0.01 [facility] Comment on above: Order Comment: Speci men Type: BLOOD SPECIMENOrdering Facility: [facility] Address: [address] [place] [address] Performed By: #### 5 7021-8 ####[facility] [id number] [place] [address] [place] Nucleated RBC/100 WBC (Bld) [Ratio] 0.0 /100 WBC Normal [facility] Comment on above: Order Comment: Speci men Type: BLOOD SPECIMENOrdering Facility: [facility] Address: [address] [place] [address] Performed By: #### 5 7021-8 ####[facility] [id number] [address] [address] [place] Platelet mean volume (Bld) [Entitic vol] 9.6 fL Normal 9.0-12.7 [facility] Comment on above: Order Comment: Speci men Type: BLOOD SPECIMENOrdering Facility: [facility] Address: [address] [place] [address] Performed By: #### 5 7021-8 ####[facility] [id number] [place] [address] [place] Platelets (Bld) [#/Vol] 405 10*3/uL High 150-400 [facility] Comment on above: Order Comment: Speci men Type: BLOOD SPECIMENOrdering Facility: [facility] Address: [address] [place] [address] Performed By: #### 5 7021-8 ####[facility] LABIA [id number] [place] [address] [place] RBC (Bld) [#/Vol] 4.11 10*6/uL Normal 3.90-5.20 [facility] Comment on above: Order Comment: Speci men Type: BLOOD SPECIMENOrdering Facility: [facility] Address: [address] [place] [address] Performed By: #### 5 7021-8 ####[facility] LABIA [id number] [place] [address] [place] WBC (Bld) [#/Vol] 9.39 10*3/uL Normal 3.70-11.00 [facility] Comment on above: Order Comment: Speci men Type: BLOOD SPECIMENOrdering Facility: [facility] Address: [address] [place] [address] Performed By: #### 5 7021-8 ####[facility] LABIA [id number] [place] [address] [place] Ferritin SerPl-mCncon 2024 Ferritin [Mass/Vol] 39.6 ng/mL Normal 14.7-205.1 [facility] Comment on above: Order Comment: Speci men Type: BLOOD SPECIMENOrdering Facility: [facility] Address: [address] [place] [address] Performed By: #### 5 0190-8, 2275- ####[facility] [id number] [place] [address] [place] Iron and Iron binding capaci ty panelon 11-19-2024 Iron [Mass/Vol] 65 ug/dL Normal 41-186 [facility] Comment on above: Order Comment: Speci men Type: BLOOD SPECIMENOrdering Facility: [facility] Address: [address] [place] [address] Performed By: #### 5 0190-8, 2276-02 ####[facility] [id number] [address] [place] Iron binding capacity [Mass/Vol] 392 ug/dL High 232-386 [facility] Comment on above: Order Comment: Speci men Type: BLOOD SPECIMENOrdering Facility: [facility] Address: [address] [place] [address] Performed By: #### 5 0190-8, 2275- ####[facility] [id number] [place] [address] [place] Iron/TIBC [Molar ratio] 16.6 % Normal 15.0-57.0 [facility] Comment on above: Order Comment: Speci men Type: BLOOD SPECIMENOrdering Facility: [facility] Address: [address] [place] [address] Performed By: #### 5 0190-8, 2275- ####[facility] [id number] [place] [address] [place] MR Ankle - right WO contrast on 11-19-2024 IMPRESSION: Nonspecific circumferential subcutaneous/soft tissue edema involving the distal leg and ankle. Muscle fatty changes and edema which may be related to disuse. Moderate midfoot osteoarthritis. No evidence of inflammatory arthritis. Electronic Equipment Installer: PHU Transcribe Date/Time: Nov 19 2024 10:47A Dictated by : CHANDNI ZIMMERMAN MD This examination was interpreted and the report reviewed and electronically signed by: LAZARO OHARA MD on Nov 19 2024 1:28PM [facility] DIVISION OF RADIOLOGY * * [...] significant additional findings. DIVISION OF RADIOLOGY Provider, [facility] - 11/19/2024 * * *Final Report* [...] midfoot osteoarthritis. No evidence of inflammatory arthritis. Electronic Equipment Installer: PSCMary Transcribe Date/Time: Nov 19 2024 10:47A Dictated by : CHADNNI ZIMMERMAN MD This examination was interpreted and the report reviewed and electronically signed by: LAZARO OHARA MD on Nov 19 2024 1:28PM EST [facility] Radiology Study observation (narrative) Mira archibald [facility] MR Ankle - right WO contrast Ordered By: Ccf Provider on 11-19-2024 [facility] MRI ANKLE WO IVCON RTon MRI ANKLE [...] midfoot osteoarthritis. No evidence of inflammatory arthritis. Electronic Equipment Installer: PSCB Transcribe Date/Time: Nov 19 2024 10:47A Dictated by : CHANDNI ZIMMERMAN MD This examination was interpreted and the report reviewed and electronically signed by: LAZARO OHARA MD on Nov 19 2024 1:28PM EST [id number] Normal [facility] Zinc SerPl-mCncon 11-19-2024 Zinc [Mass/Vol] 55 ug/dL Low 60-120 [facility] Comment on above: Order Comment: Speci men Type: BLOOD SPECIMEN [facility]ing [facility] Address: [address] [place] [address] Result Comment: This test was developed, and its performance characteristics determined by the [facility] Department of Pathology and Laboratory Medicine. It has not been cleared or approved by the FDA. The [facility] Department of Pathology and Laboratory Medicine is regulated under CLIA as qualified to perform high-complexity testing. This test is used for clinical purposes. It should not be regarded as investigational or for research. Performed By: #### 2 132-9, 2276-4, 68914-8, 2284-8 #### [facility] CLIA [id number] [address] [place], [place] [address]Kelsie 11-06-2024 CNPN Telephone ([facility]) YUSUF MEDINA ([id number]) 1935 [facility] Date Time Provider Department 11/06/24 WILLIE KAUR [facility] During your visit today, we recorded [...] this patient by: CAREGIVER José Miguel Swanson [facility] Problem List As Of Date 11/06/2024 Noted [...] 07/17/2013 05/11/2016 (more content not included)... Normal [facility] CNPNon 11-05-2024 CNPN Telephone ([facility]) YUSUF MEDINA ([id number]) 1935 F [facility] Date Time Provider Department 11/05/24 GRUPO MENDEZ During your visit today, we recorded the following information about you: Grupo Mendez MD 11/05/2024 6:55 PM Signed Patient has secondary leukocytosis in the setting of highly elevated sed rate, RUBEN 1:320 titer, positive FILLETER Hematology work-up was essentially negative highlighting concern [...] BLOOD COUNT AND DIFFERENTIAL [SQCBCDIF] Order #: [id number] FUTURE IRON AND TIBC [SQIRON] Order #: [id number] FUTURE FERRITIN [SQFERR] Order #: [id number] FUTURE ZINC BLD [SQZINC] Order #: [id number] FUTURE Prescriptions as of 11/05/2024 - meloxicam (MOBIC) 15 mg tablet TAKE 1 TABLET BY MOUTH ONCE DAILY NEEDED FOR PAIN. DO NOT COMBINE WITH DICLOFENAC GEL - traZODone (DESYREL) 50 mg tablet Take 1 tablet by mouth at bedtime as needed for sedation. - blood sugar diagnostic (DezideUCH ULTRA TEST) test strip Test blood sugar [...] this patient by: CAREGIVER José Miguel Swanson [facility] Problem List As Of Date 11/05/2024 Noted [...] [N18.9] 05/11/2016 (more content not included)... Normal [facility] CNOVon 11-01-2024 CNOV Office Visit ([facility] ) YUSUF MEDINA ([id number]) 1935 F [facility] Date Time Provider Department 11/01/24 [...] LENS Bilateral [facility] Family History: FAMILY HISTORY Problem Relation Age of Onset None Brother None Sister None Brother Medications: Current Outpatient Medications Medication Sig meloxicam (MOBIC) 15 mg tablet TAKE 1 TABLET BY MOUTH ONCE DAILY NEEDED FOR PAIN. DO NOT COMBINE WITH DICLOFENAC GEL traZODone (DESYREL) 50 mg tablet Take 1 tablet by mouth at bedtime as needed for sedation. blood sugar diagnostic (DezideUCH ULTRA TEST) test strip Test blood sugar [...] Plan: Rig (more content not included)... Normal [facility] CRP SerPl-mCncon 11-01-2024 CRP [Mass/Vol] 0.3 mg/dL Normal <0.9 [facility] Comment on above: Order Comment: Speci men Type: BLOOD SPECIMEN [facility] Address: [address] [place] [address] Performed By: #### 2 132-9, 2276-4, 00041-5, 2284-8 #### [facility] CLIA [id number] [address] [place] [address] [place] [address] [place] ESR Westergren method (Bld) [Velocity]on 12-19-2024 ESR (Bld) [Velocity] 36 mm/h High 0-[address] [facility] Comment on above: Order Comment: Speci men Type: BLOOD SPECIMEN [facility] Address: [address] [place] [address] Performed By: #### 2 132-9, 2276-4, 27390-4, 2284-8 #### [facility] CLIA [id number] [address] [place], [place] [address] [address] [place] XR ANKLE 3V [...] planus and mild to moderate midfoot osteoarthritis. Electronic Equipment Installer: PSCB Transcribe Date/Time: Nov 02 2024 11:17A Dictated by : SHARYN UMANA MD This examination was interpreted and the report reviewed and electronically signed by: SHARYN UMANA MD on Nov 02 2024 11:20AM EST [id number] Normal [facility] XR FOOT 3V AP/LAT/OBL RTon [...] planus and mild to moderate midfoot osteoarthritis. Electronic Equipment Installer: PHU Transcribe Date/Time: Nov 02 2024 11:17A Dictated by : SHARYN UMANA MD This examination was interpreted and the report reviewed and electronically signed by: SHARYN UMANA MD on Nov 02 2024 11:20AM EST [id number] Normal [facility] CNOVon 10-29-2024 CNOV Office Visit ([facility] ) YUSUF MEDINA ([id number]) 1935 F [place] Date Time Provider Department 10/29/24 4:20 PM AB [facility] During your visit today, we recorded [...] needed for sedation. - blood sugar diagnostic (DezideUCH ULTRA TEST) test strip Test blood sugar [...] this patient by: CAREGIVER José Miguel Swanson [facility] Problem List As Of Date 10/29/2024 Noted [...] intervert*10/31/2010 Osteoart (more content not included)... Normal [facility] CNOVon 09-20-2024 CNOV Office Visit (OTSCOTTHT ) YUSUF MEDINA ([id number]) 1935 F [facility] Date Time Provider Department 09/20/24 9:10 AM [...] LENS Bilateral 2020 [facility] Family History: FAMILY HISTORY Problem Relation Age of Onset None Brother None Sister None Brother Medications: Current Outpatient Medications Medication Sig traZODone (DESYREL) 50 mg tablet Take 1 tablet by mouth at bedtime as needed for sedation. blood sugar diagnostic (myWebRoom ULTRA TEST) test strip Test blood sugar [...] malleolus NTTP (more content not included)... Normal [facility] BCR/ABL1 P210 AND P190 DIAGN OSTIC PCR BLOODon 09-19-2024 BCR/ABL1 P210 AND P190 DIAGNOSTIC PCR BLOOD RESULT BCR/ABL1 p210 and p190 Diagnostic PCR Laboratory Accession Number: [id number] Sample Type: Peripheral Blood Result: NOT DETECTED; [...] this sample, and cDNA prepared by reverse high school tutor. Real time PCR was performed in two separate reactions, using primers for e13a2 and/or e14a2 BCR/ABL1 fusion transcripts and ABL1 transcripts for p210 detection and primers for e1a2 BCR/ABL1 fusion transcripts and ABL1 transcripts for p190 detection (QuantideX BCR/ABL IS assay, [facility], [place], [place]). This assay has a limit [...] developed and its performance characteristics determined by [facility]'s Pathology and Laboratory Medicine Department. It has not been cleared or approved by the FDA. [facility] Pathology and Laboratory Medicine Department is regulated under CLIA as certified to perform high-complexity testing. This test is used for clinical purposes. It should not be regarded as investigational or for research. Testing and interpretation performed at [facility], [address] [place] [id number]. CLIA Number: [id number] As reviewed by José Miguel Persaud MD [facility] METHYLMALONIC ACIDon 024 Methylmalonate [Moles/Vol] 0.29 umol/L NINF - 0.40 umol/L [facility] Comment on above: This test was develo ped, and its performance characteristics determined by the [facility] Department of Pathology and Laboratory Medicine. It has not been cleared or approved by the FDA. The [facility] Department of Pathology and Laboratory Medicine is regulated under CLIA as qualified to perform high-complexity testing. This test is used for clinical purposes. It should not be regarded as investigational or for research. Methylmalonate [Moles/Vol]on 09-19-2024 Interpretation and review of laboratory results Normal [facility] XR CALCANEUS 2V AXIAL/LAT RT on 09-19-2024 [...] planus with calcaneal enthesophytes and bone demineralization. Electronic Equipment Installer: PSCB Transcribe Date/Time: Sep 21 2024 11:34A Dictated by : ALEJANDRA MONCADA MD This examination was interpreted and the report reviewed and electronically signed by: ALEJANDRA MONCADA MD on Sep 21 2024 11:39AM EST [id number] Normal [facility] XR FOOT 3V AP/LAT/OBL RTon [...] toes with hammertoe deformities. 4. Calcaneal enthesophytes. Electronic Equipment Installer: PSCMary Transcribe Date/Time: Sep 21 2024 11:40A Dictated by : ALEJANDRA MONCADA MD This examination was interpreted and the report reviewed and electronically signed by: ALEJANDRA MONCADA MD on Sep 21 2024 11:59AM EST [id number] Normal [facility] CCP ANTIBODY IGGOrdered By: Robin Zavala on 09-18-2024 Cyclic citrullinated peptide IgG Qn NINF [facility] CNPNon 09-18-2024 CNPN Telephone ([facility]) YUSUF MEDINA ([id number]) 1935 F [facility] Date Time Provider Department 09/18/24 GRUPO MENDEZ HEMAST During your visit today, we recorded the following information about you: Grupo Mendez MD 09/18/2024 9:19 PM Signed Results were reviewed. I spoke with [id number] Demetria about suspicion for calcaneal bone fracture. [...] initial encounter [S92.001A] Order(s):CONSULT PANEL TO ORTHOPAEDICS [201962] Order #: [id number]: 1 FUTURE Prescriptions as of 09/18/2024 - traZODone (DESYREL) 50 mg tablet Take 1 tablet by mouth at bedtime as needed for sedation. - blood sugar diagnostic (myWebRoom ULTRA TEST) test strip Test blood sugar [...] this patient by: CAREGIVER José Miguel Swanson [facility] Problem List As Of Date 09/18/2024 Noted [...] dependent (NIDDM*03/07 (more content not included)... Normal [facility] COPPER BLOODon 09-18-2024 Copper [Mass/Vol] 128 ug/dL 80 - 155 ug/dL [facility] Comment on above: This test was develo ped, and its performance characteristics determined by the [facility] Department of Pathology and Laboratory Medicine. It has not been cleared or approved by the FDA. The [facility] Department of Pathology and Laboratory Medicine is regulated under CLIA as qualified to perform high-complexity testing. This test is used for clinical purposes. It should not be regarded as investigational or for research. Interpretation and review of laboratory results Normal [facility] Cyclic citrullinated peptide IgG QnOrdered By: Robin Zavala on 09-18-2024 CCP Antibody IgG Qualitative Negative Negative [facility] Interpretation and review of laboratory results Normal [facility] This test is used as aid in diagnosis of Rheumatoid arthritis (RA). A negative result cannot rule out RA where clinically suspected. Clinical correlation is required. The following results were obtained with an [employer] Lite CCP IgG JOE. Cyclic Citrullinated Peptide IgG values obtained with different manufacturers' assay methods may not be used interchangeably. The magnitude of the reported IgG levels cannot be correlated to an endpoint titer. [facility] FERRITINon 09-18-2024 Ferritin [Mass/Vol] 59.9 ng/mL 14.7 - 2 05.1 ng/mL [facility] FOLATE, SERUMon 09-18-2024 Folate [Mass/Vol] 18.8 ng/mL 4.7 - PINF ng/mL [facility] Ferritin [Mass/Vol]on 2023 Interpretation and review of laboratory results Normal [facility] HOMOCYSTEINEon 09-18-2024 Homocysteine [Moles/Vol] 21.2 umol/L High NINF - 15.1 umol/L [facility] Homocysteine [Moles/Vol]on 11-18-2023 Interpretation and review of laboratory results Abnormal [facility] Iron and Iron binding capaci ty panelon 09-18-2024 Interpretation and review of laboratory results Abnormal [facility] Iron [Mass/Vol] 29 ug/dL Low 41 - 186 ug/dL [facility] Iron binding capacity [Mass/Vol] 407 ug/dL High 232 - 386 ug/dL [facility] Iron/TIBC [Molar ratio] 7.1 % Low 15.0 - 57.0 % [facility] No Panel InformationOrdered By: Cheryl Sinha on 09-18-2024 [facility] No Panel Informationon 09-18 Interpretation and review of laboratory results Normal [facility] Nuclear Ab IA Ql (S)Ordered By: Lien Matson on 09-18-2024 RUBEN Scr Qual Positive Abnormal Negative [facility] Comment on above: The qualitative anti nuclear antibody screen test performed using the following antigens: dsDNA, Chromatin, Ribosomal P, SS-A 60, SS-A 52, SS-B, Sm, SmRNP, FILLETER A, FILLETER 68, Scl-70, Nadege-1, and Centromere B. Methodology: Multiplex flow immunoassay. Interpretation and review of laboratory results Abnormal [facility] URIC ACIDon 09-18-2024 Urate [Mass/Vol] 5.6 mg/dL 2.5 - 6.6 mg/dL [facility] US DVT LOWER RTon 09-18-2024 US DVT LOWER RT Normal [facility] US Lower extremity vein - ri louann 09-18-2024 IMPRESSION: Negative study for proximal DVT in the right lower extremity. Negative study for calf DVT in the right lower extremity. Negative study for superficial thrombophlebitis in the imaged segments of the right lower extremity. Electronic Equipment Installer: PHU Transcribe Date/Time: Sep 18 2024 9:14A Dictated by : ZACH THOMPSON MD This examination was interpreted and the report reviewed and electronically signed by: ZACH THOMPSON MD on Sep 18 2024 9:20AM EST [facility] * * *Final Report* * * [...] spontaneous respirophasic flow. Normal response to augmentation. [facility] Provider, Kalyan Rowley - 09/18/2024 * [...] imaged segments of the right lower extremity. Electronic Equipment Installer: PSCMary Transcribe Date/Time: Sep 18 2024 9:14A Dictated by : ZACH THOMPSON MD This examination was interpreted and the report reviewed and electronically signed by: ZACH THOMPSON MD on Sep 18 2024 9:20AM EST [facility] Study observation (narrative) Mira Miranda US Lower extremity vein - ri ghtOrdered By: Ccf Provider on 09-18-2024 [facility] Urate [Mass/Vol]on Interpretation and review of laboratory results Normal [facility] VITAMIN B12on 09-18-2024 Cobalamin (Vitamin B12) [Mass/Vol] 433 pg/mL 232 - 1245 pg/mL [facility] XR Ankle - right AP and Late ral and obliqueon 09-18-2024 IMPRESSION: Marked right ankle soft tissue swelling. Osteopenia and suspicion of nondisplaced calcaneus fracture. Degenerative changes, calcaneal enthesophytes, and pes planus. Electronic Equipment Installer: PSCB Transcribe Date/Time: Sep 18 2024 12:20P Dictated by : GERTRUDIS MONCADA MD This examination was interpreted and the report reviewed and electronically signed by: GERTRUDIS MONCADA MD on Sep 18 2024 12:22PM [facility] DIVISION OF RADIOLOGY * * [...] ankle. Atherosclerotic calcifications. DIVISION OF RADIOLOGY Provider, [facility] - 09/18/2024 * * *Final Report* [...] Degenerative changes, calcaneal enthesophytes, and pes planus. Electronic Equipment Installer: PSCB Transcribe Date/Time: Sep 18 2024 12:20P Dictated by : GERTRUDIS MONCADA MD This examination was interpreted and the report reviewed and electronically signed by: GERTRUDIS MONCADA MD on Sep 18 2024 12:22PM EST [facility] XR Ankle - right AP and Late ral and obliqueOrdered By: Ccf Provider on 09-18-2024 [facility] ZINC BLDOrdered By: Cheryl rodriguez on 09-18-2024 Zinc [Mass/Vol] 55 ug/dL Low 60 - 120 ug/dL [facility] Comment on above: This test was develo ped, and its performance characteristics determined by the [facility] Department of Pathology and Laboratory Medicine. It has not been cleared or approved by the FDA. The [facility] Department of Pathology and Laboratory Medicine is regulated under CLIA as qualified to perform high-complexity testing. This test is used for clinical purposes. It should not be regarded as investigational or for research. Zinc [Mass/Vol]Ordered By: Roxane Sinha on 09-18-2024 Interpretation and review of laboratory results Abnormal [facility] RUBEN BY IFA SCREENon 09-17-20 24 Nuclear Ab pattern (S) [Interp] Nuclear homogeneous Normal [facility] Comment on above: Order Comment: Speci men Type: BLOOD SPECIMEN Ordering Facility: [facility] Address: [address] [place] [address] Performed By: #### 2 132-9, 2276-4, 14911-8, 2284-8 #### [facility] CLIA [id number] [address] [place], [place] [address] [address] [place] Nuclear Ab Ql (S) Positive Abnormal Negative [facility] Comment on above: Order Comment: Speci men Type: BLOOD SPECIMEN Ordering Facility: [facility] Address: [address] [place] [address] Result Comment: Anti -nuclear antibody test is used as an aid in diagnosis of systemic autoimmune diseases. Where positive and clinically warranted, follow-up using disease-specific testing is recommended. Low positive titers are not uncommon with advanced age, certain chronic infections, and malignancies among others. Test methodology: Indirect fluorescence immunoassay (IFA) using HEp-2 cells. 1:320 Performed By: #### 2 132-9, 2276-4, 31977-9, 2284-8 #### [facility] CLIA [id number] [address] [place] [address] [place] BCR/ABL1 P190 NCN P210 % IS MR BLOODon 09-17-2024 BCR/ABL1 P190 NCN(%BCR/ABL1:ABL1) N/A Normal [facility] Comment on above: Order Comment: Speci men Type: BLOOD SPECIMENOrdering Facility: [facility] Address: [address] [place] [address] Performed By: #### B CRPB1 ####[facility] [id number] [place] [address] [place]#### ISMRNCNPB ####[facility] [id number] [place] [address] [place] BCR/ABL1 P210 %IS N/A Normal [facility] Comment on above: Order Comment: Speci men Type: BLOOD SPECIMENOrdering Facility: [facility] Address: [address] [place] [address] Performed By: #### B CRPB1 ####[facility] LIMSCLIA [id number] [place] [address] [place]#### ISMRNCNPB ####[facility] [id number] [place] [address] [place] BCR/ABL1 P210 MR N/A Normal [facility] Comment on above: Order Comment: Speci men Type: BLOOD SPECIMENOrdering Facility: [facility] Address: [address] [place] [address] Performed By: #### B CRPB1 ####[facility] LIMSCLIA [id number] [place] [address] [place]#### ISMRNCNPB ####[facility] [id number] [place] [address] [place] BCR/ABL1 P210 AND P190 DIAGN OSTIC PCR BLOODon 09-17-2024 BCR/ABL1 P210 AND P190 DIAGNOSTIC PCR BLOOD RESULT Normal [facility] Comment on above: Order Comment: Speci men Type: BLOOD SPECIMEN Ordering Facility: [facility] Address: [address] [place] [address] Result Comment: BCR/ ABL1 p210 and p190 Diagnostic PCR Laboratory Accession Number: [id number] Sample Type: Peripheral Blood Result: NOT DETECTED; [...] this sample, and cDNA prepared by reverse high school tutor. Real time PCR was performed in two separate reactions, using primers for e13a2 and/or e14a2 BCR/ABL1 fusion transcripts and ABL1 transcripts for p210 detection and primers for e1a2 BCR/ABL1 fusion transcripts and ABL1 transcripts for p190 detection (QuantideX BCR/ABL IS assay, [facility], [place], [place]). This assay has a limit [...] developed and its performance characteristics determined by [facility]'s Pathology and Laboratory Medicine Department. It has not been cleared or approved by the FDA. [facility]'s Pathology and Laboratory Medicine Department is regulated under CLIA as certified to perform high-complexity testing. This test is used for clinical purposes. It should not be regarded as investigational or for research. Testing and interpretation performed at [facility], [address] [place] [address]. CLIA Number: [id number] As reviewed by José Miguel Persaud MD Performed By: #### B CRPB1 #### [facility] CLIA [id number] [address] [place] [address] [place] #### ISMRNCNPB #### [facility] CLIA [id number] [address] [place] [address] [place] CBC W Ordered Manual Differe ntial panel (Bld)on 09-17-2024 Basophils (Bld) [#/Vol] 0.03 10*3/uL [facility] Basophils/100 WBC (Bld) 0.3 % [facility] Differential cell count method Nom (Bld) Auto [facility] Eosinophils (Bld) [#/Vol] 0.07 10*3/uL [facility] Eosinophils/100 WBC (Bld) 0.7 % [facility] Erythrocyte distribution width (RBC) [Ratio] 14.2 % 11.5 - 15.0 % [facility] Hematocrit (Bld) [Volume fraction] 35.2 % Low 36.0 - 46.0 % [facility] Hemoglobin (Bld) [Mass/Vol] 11.4 g/dL Low 11.5 - 15.5 g/dL [facility] Immature granulocytes (Bld) [#/Vol] 0.06 10*3/uL [facility] Immature granulocytes/100 WBC (Bld) 0.6 % [facility] Interpretation and review of laboratory results Abnormal [facility] Lymphocytes (Bld) [#/Vol] 1.42 10*3/uL [facility] Lymphocytes/100 WBC (Bld) 15.1 % [facility] MCH (RBC) [Entitic mass] 28.6 pg 26.0 - 34.0 pg [facility] MCHC (RBC) [Mass/Vol] 32.4 g/dL 30.5 - 36.0 g/dL [facility] MCV (RBC) [Entitic vol] 88.2 fL 80.0 - 100.0 fL [facility] Monocytes (Bld) [#/Vol] 0.52 10*3/uL [facility] Monocytes/100 WBC (Bld) 5.5 % C [facility] Neutrophils (Bld) [#/Vol] 7.33 10*3/uL [facility] Neutrophils/100 WBC (Bld) 77.8 % [facility] Nucleated RBC (Bld) [#/Vol] [facility] Nucleated RBC/100 WBC (Bld) [Ratio] 0.0 % /100 WBC [facility] Platelet mean volume (Bld) [Entitic vol] 9.8 fL 9.0 - 12.7 fL [facility] Platelets (Bld) [#/Vol] 409 10*3/uL High [facility] RBC (Bld) [#/Vol] 3.99 10*6/uL 3.90 - 5.2 0 m/uL [facility] WBC (Bld) [#/Vol] 9.43 10*3/uL [facility] This is an appended report. These results have been appended to a previously verified report. [facility] Basophils (Bld) [#/Vol] 0.03 10*3/uL Normal <0.11 [facility] Comment on above: Order Comment: Speci men Type: BLOOD SPECIMEN Ordering Facility: [facility] Address: [address] [place] [address] Performed By: #### B CRPB1 #### [facility] CLIA [id number] [address] [place] [address] [place] #### ISMRNCNPB #### [facility] CLIA [id number] [address] [place] [address] [place] Basophils/100 WBC (Bld) 0.3 % Normal C [facility] Comment on above: Order Comment: Speci men Type: BLOOD SPECIMEN Ordering Facility: [facility] Address: [address] [place] [address] Performed By: #### B CRPB1 #### [facility] CLIA [id number] [address] [place] [address] [place] #### ISMRNCNPB #### [facility] CLIA [id number] [address] [place] [address] [place] Differential cell count method Nom (Bld) Auto Normal [facility] Comment on above: Order Comment: Speci men Type: BLOOD SPECIMEN Ordering Facility: [facility] Address: [address] [place] [address] Performed By: #### B CRPB1 #### [facility] CLIA [id number] [address] [place] [address] [place] #### ISMRNCNPB #### [facility] CLIA [id number] [address] [place] [address] [place] Eosinophils (Bld) [#/Vol] 0.07 10*3/uL Normal <0.46 [facility] Comment on above: Order Comment: Speci men Type: BLOOD SPECIMEN Ordering Facility: [facility] Address: [address] [place] [address] Performed By: #### B CRPB1 #### [facility] CLIA [id number] [address] [place] [address] [place] #### ISMRNCNPB #### [facility] CLIA [id number] [address] [place] [address] [place] Eosinophils/100 WBC (Bld) 0.7 % Normal [facility] Comment on above: Order Comment: Speci men Type: BLOOD SPECIMEN Ordering Facility: [facility] Address: [address] [place] [address] Performed By: #### B CRPB1 #### [facility] CLIA [id number] [address] [place] [address] [place] #### ISMRNCNPB #### [facility] CLIA [id number] [address] [place] [address] [place] Erythrocyte distribution width (RBC) [Ratio] 14.2 % Normal 11.5-15.0 [facility] Comment on above: Order Comment: Speci men Type: BLOOD SPECIMEN Ordering Facility: [facility] Address: [address] [place] [address] Performed By: #### B CRPB1 #### [facility] CLIA [id number] [address] [place] [address] [place] #### ISMRNCNPB #### [facility] CLIA [id number] [address] [place] [address] [place] Hematocrit (Bld) [Volume fraction] 35.2 % Low 36.0-46.0 [facility] Comment on above: Order Comment: Speci men Type: BLOOD SPECIMEN Ordering Facility: [facility] Address: [address] [place] [address] Performed By: #### B CRPB1 #### [facility] CLIA [id number] [address] [place] [address] [place] #### ISMRNCNPB #### [facility] CLIA [id number] [address] [place] [address] [place] Hemoglobin (Bld) [Mass/Vol] 11.4 g/dL Low 11.5-15.5 [facility] Comment on above: Order Comment: Speci men Type: BLOOD SPECIMEN Ordering Facility: [facility] Address: [address] [place] [address] Performed By: #### B CRPB1 #### [facility] CLIA [id number] [address] [place] [address] [place] #### ISMRNCNPB #### [facility] CLIA [id number] [address] [place] [address] [place] Immature granulocytes (Bld) [#/Vol] 0.06 10*3/uL Normal <0.10 [facility] Comment on above: Order Comment: Speci men Type: BLOOD SPECIMEN Ordering Facility: [facility] Address: [address] [place] [address] Performed By: #### B CRPB1 #### [facility] CLIA [id number] [address] [place] [address] [place] #### ISMRNCNPB #### [facility] CLIA [id number] [address] [place] [address] [place] Immature granulocytes/100 WBC (Bld) 0.6 % Normal [facility] Comment on above: Order Comment: Speci men Type: BLOOD SPECIMEN Ordering Facility: [facility] Address: [address] [place] [address] Performed By: #### B CRPB1 #### [facility] CLIA [id number] [address] [place] [address] [place] #### ISMRNCNPB #### [facility] CLIA [id number] [address] [place] [address] [place] Lymphocytes (Bld) [#/Vol] 1.42 10*3/uL Normal 1.00-4.00 [facility] Comment on above: Order Comment: Speci men Type: BLOOD SPECIMEN Ordering Facility: [facility] Address: [address] [place] [address] Performed By: #### B CRPB1 #### [facility] CLIA [id number] [address] [place] [address] [place] #### ISMRNCNPB #### [facility] CLIA [id number] [address] [place] [address] [place] Lymphocytes/100 WBC (Bld) 15.1 % Normal [facility] Comment on above: Order Comment: Speci men Type: BLOOD SPECIMEN Ordering Facility: [facility] Address: [address] [place] [address] Performed By: #### B CRPB1 #### [facility] CLIA [id number] [address] [place] [address] [place] #### ISMRNCNPB #### [facility] CLIA [id number] [address] [place] [address] [place] MCH (RBC) [Entitic mass] 28.6 pg Normal 26.0-34.0 [facility] Comment on above: Order Comment: Speci men Type: BLOOD SPECIMEN Ordering Facility: [facility] Address: [address] [place] [address] Performed By: #### B CRPB1 #### [facility] CLIA [id number] [address] [place] [address] [place] #### ISMRNCNPB #### [facility] CLIA [id number] [address] [place] [address] [place] MCHC (RBC) [Mass/Vol] 32.4 g/dL Normal 30.5-36.0 [facility] Comment on above: Order Comment: Speci men Type: BLOOD SPECIMEN Ordering Facility: [facility] Address: [address] [place] [address] Performed By: #### B CRPB1 #### [facility] CLIA [id number] [address] [place] [address] [place] #### ISMRNCNPB #### [facility] CLIA [id number] [address] [place] [address] [place] MCV (RBC) [Entitic vol] 88.2 fL Normal 80.0-100.0 C [facility] Comment on above: Order Comment: Speci men Type: BLOOD SPECIMEN Ordering Facility: [facility] Address: [address] [place] [address] Performed By: #### B CRPB1 #### [facility] CLIA [id number] [address] [place] [address] [place] #### ISMRNCNPB #### [facility] CLIA [id number] [address] [place] [address] [place] Monocytes (Bld) [#/Vol] 0.52 10*3/uL Normal <0.87 [facility] Comment on above: Order Comment: Speci men Type: BLOOD SPECIMEN Ordering Facility: [facility] Address: [address] [place] [address] Performed By: #### B CRPB1 #### [facility] CLIA [id number] [address] [place] [address] [place] #### ISMRNCNPB #### [facility] CLIA [id number] [address] [place] [address] [place] Monocytes/100 WBC (Bld) 5.5 % Normal [facility] Comment on above: Order Comment: Speci men Type: BLOOD SPECIMEN Ordering Facility: [facility] Address: [address] [place] [address] Performed By: #### B CRPB1 #### [facility] CLIA [id number] [address] [place] [address] [place] #### ISMRNCNPB #### [facility] CLIA [id number] [address] [place] [address] [place] Neutrophils (Bld) [#/Vol] 7.33 10*3/uL Normal 1.45-7.50 [facility] Comment on above: Order Comment: Speci men Type: BLOOD SPECIMEN Ordering Facility: [facility] Address: [address] [place] [address] Performed By: #### B CRPB1 #### [facility] CLIA [id number] [address] [place] [address] [place] #### ISMRNCNPB #### [facility] CLIA [id number] [address] [place] [address] [place] Neutrophils/100 WBC (Bld) 77.8 % Normal [facility] Comment on above: Order Comment: Speci men Type: BLOOD SPECIMEN Ordering Facility: [facility] Address: [address] [place] [address] Performed By: #### B CRPB1 #### [facility] CLIA [id number] [address] [place] [address] [place] #### ISMRNCNPB #### [facility] CLIA [id number] [address] [place] [address] [place] Nucleated RBC (Bld) [#/Vol] 10*3/uL Normal <0.01 [facility] Comment on above: Order Comment: Speci men Type: BLOOD SPECIMEN Ordering Facility: [facility] Address: [address] [place] [address] Performed By: #### B CRPB1 #### [facility] CLIA [id number] [address] [place] [address] [place] #### ISMRNCNPB #### [facility] CLIA [id number] [address] [place] [address] [place] Nucleated RBC/100 WBC (Bld) [Ratio] 0.0 /100 WBC Normal [facility] Comment on above: Order Comment: Speci men Type: BLOOD SPECIMEN Ordering Facility: [facility] Address: [address] [place] [address] Performed By: #### B CRPB1 #### [facility] CLIA [id number] [address] [place] [address] [place] #### ISMRNCNPB #### [facility] CLIA [id number] [address] [place] [address] [place] Platelet mean volume (Bld) [Entitic vol] 9.8 fL Normal 9.0-12.7 [facility] Comment on above: Order Comment: Speci men Type: BLOOD SPECIMEN Ordering Facility: [facility] Address: [address] [place] [address] Performed By: #### B CRPB1 #### [facility] CLIA [id number] [address] [place] [address] [place] #### ISMRNCNPB #### [facility] CLIA [id number] [address] [place] [address] [place] Platelets (Bld) [#/Vol] 409 10*3/uL High 150-400 [facility] Comment on above: Order Comment: Speci men Type: BLOOD SPECIMEN Ordering Facility: [facility] Address: [address] [place] [address] Performed By: #### B CRPB1 #### [facility] CLIA [id number] [address] [place] [address] [place] #### ISMRNCNPB #### [facility] CLIA [id number] [address] [place] [address] [place] RBC (Bld) [#/Vol] 3.99 10*6/uL Normal 3.90-5.20 [facility] Comment on above: Order Comment: Speci men Type: BLOOD SPECIMEN Ordering Facility: [facility] Address: [address] [place] [address] Performed By: #### B CRPB1 #### [facility] CLIA [id number] [address] [place] [address] [place] #### ISMRNCNPB #### [facility] CLIA [id number] [address] [place] [address] [place] WBC (Bld) [#/Vol] 9.43 10*3/uL Normal 3.70-11.00 [facility] Comment on above: Order Comment: Speci men Type: BLOOD SPECIMEN Ordering Facility: [facility] Address: [address] [place] [address] Performed By: #### B CRPB1 #### [facility] CLIA [id number] [address] [place] [address] [place] #### ISMRNCNPB #### [facility] CLIA [id number] [address] [place] [address] [place] CNOVSPon 09-17-2024 CNOVSP Visit (SP) Office ([facility]) YUSUF MEDINA ([id number]) 1935 [facility] Date Time Provider Department 09/17/24 3:10 PM GRUPO MENDEZ During your visit today, we recorded the following information about you: Pulse Respiration Blood pressure Weight 92/minute 16/minute 166/88 52.2 kg Grupo Mendez MD 09/24/2024 3:38 AM Signed Consultation requested by Dr. Migdalia Cramre for an opinion regarding leukocytosis. My final recommendations will be communicated back to the requesting physician by way of shared Medical record or letter to requesting physician via US mail. Presenting complaint: Patient Yusuf Medina was sent to my office to be evaluated for leukocytosis. ASSESSMENT: (D76.313) Leukocytosis, unspecified type (primary encounter diagnosis) Comment: [...] L REMV CATARACT EXTRACAP,INSERT LENS Bilateral 2020 [facility] FAMILY HISTORY Problem Relation Age of [...] as needed for sedation. blood sugar diagnostic (DezideUCH ULTRA TEST) test strip Test blood sugar once daily glipiZIDE (GLUCOTROL XL) 2.5 mg 24 hr tablet TAKE 1 TABLET BY MOUTH ONCE DAILY lisinopril-hydroCHLORO thiazide (ZESTORETIC) 20-25 mg per tablet Take 1 tablet by mouth once daily. pioglitazone (more content not included)... Normal [facility] COPPER BLOODon 09-17-2024 Copper [Mass/Vol] 128 ug/dL Normal 80-155 [facility] Comment on above: Order Comment: Fan meade Type: BLOOD SPECIMEN Ordering Facility: [facility] Address: [address] [place] [address] Result Comment: This test was developed, and its performance characteristics determined by the [facility] Department of Pathology and Laboratory Medicine. It has not been cleared or approved by the FDA. The [facility] Department of Pathology and Laboratory Medicine is regulated under CLIA as qualified to perform high-complexity testing. This test is used for clinical purposes. It should not be regarded as investigational or for research. Performed By: #### 2 132-9, 2276-4, 21304-8, 2283-8 #### [facility] CLIA [id number] [address] [place] [address] [place] Centromere Ab IF Ql (S)on Centromere Ab Qn (S) <0.2 Normal <1.0 [facility] Comment on above: Order Comment: Fan meade Type: BLOOD SPECIMEN Ordering Facility: [facility] Address: [address] [place] [address] Result Comment: Anti -centromere antibody is used as in aid in diagnosis of systemic sclerosis. Clinical correlation is required. Test Methodology: Multiplex flow immunoassay. Performed By: #### 2 132-9, 2276-4, 52796-2, 228-8 #### [facility] CLIA [id number] [address] [place] [address] [place] CENTROMERE AB QUAL Negative Normal Negative [facility] Comment on above: Order Comment: Fan meade Type: BLOOD SPECIMEN Ordering Facility: [facility] Address: [address] [place] [address] Performed By: #### 2 132-9, 2276-4, 03705-0, 2284-8 #### [facility] CLIA [id number] [address] [place] [address] [place] Chromatin Ab Qnon 09-17-2024 CHROMATIN AB QUAL Negative Normal Negative [facility] Comment on above: Order Comment: Speci men Type: BLOOD SPECIMEN Ordering Facility: [facility] Address: [address] [place] [address] Performed By: #### 5 7021-8 #### KATHIEMINDY [facility] CLIA [id number] [address] [place] [address] [place] Chromatin Ab SerPl-aCncon Chromatin Ab Qn <0.2 Normal <1.0 [facility] Comment on above: Order Comment: Speci men Type: BLOOD SPECIMEN Ordering Facility: [facility] Address: [address] [place] [address] Result Comment: Test Methodology: Multiplex flow immunoassay. Performed By: #### 5 7021-8 #### CHAZMINDY [facility] CLIA [id number] [address] [place] [address] [place] Cyclic citrullinated peptide IgG Qnon 09-17-2024 CCP ANTIBODY IGG QUALITATIVE Negative Normal Negative [facility] Comment on above: Order Comment: Speci men Type: BLOOD SPECIMEN Ordering Facility: [facility] Address: [address] [place] [address] Performed By: #### 2 132-9, 2276-4, 57123-6, 2284-8 #### [facility] CLIA [id number] [address] [place] [address] [place] DNA double strand Ab IA Qn ( S)on 09-17-2024 DNA ANTIBODY 175 IU/mL Normal <=200 [facility] Comment on above: Order Comment: Speci men Type: BLOOD SPECIMEN Ordering Facility: [facility] Address: [address] [place] [address] Result Comment: Nega tive: <200 IU/mL Equivocal: 201-300 IU/mL Moderate Positive: 301-800 IU/mL Strong Positive: >801 IU/mL Performed By: #### 2 132-9, 6-4, 01916-0, 8 #### [facility] CLIA [id number] [address] [place] [address] [place] DNA ANTIBODY QUALITATIVE INTERPRETATION Negative Normal Negative [facility] Comment on above: Order Comment: Speci men Type: BLOOD SPECIMEN Ordering Facility: [facility] Address: [address] [place] [address] Performed By: #### 2 132-9, 6-4, 32311-2, 8 #### [facility] CLIA [id number] [address] [place] [address] [place] EUFEMIA Jo1 Ab Ser-aCncon 2023 Nadege-1 extractable nuclear Ab Qn (S) <0.2 Normal <1.0 [facility] Comment on above: Order Comment: Speci men Type: BLOOD SPECIMEN Ordering Facility: [facility] Address: [address] [place] [address] Performed By: #### 2 132-9, 2275-4, 38857-3, 8 #### [facility] CLIA [id number] [address] [place] [address] [place] EUFEMIA FILLETER Ab Ser-aCncon 2023 Ribonucleoprotein extractable nuclear Ab Qn (S) <0.2 Normal <1.0 [facility] Comment on above: Order Comment: Speci men Type: BLOOD SPECIMEN Ordering Facility: [facility] Address: [address] [place] [address] Performed By: #### 2 132-9, 2275-4, 57465-2, 8 #### [facility] CLIA [id number] [address] [place] [address] [place] Ribonucleoprotein extractable nuclear Ab Qn (S) 2.3 AI High <1.0 [facility] Comment on above: Order Comment: Speci men Type: BLOOD SPECIMEN Ordering Facility: [facility] Address: [address] [place] [address] Performed By: #### 2 132-9, 6-4, 38976-2, 8 #### [facility] CLIA [id number] [address] [place] [address] [place] EUFEMIA SM IgG Ser-aCncon 2023 Bang extractable nuclear IgG Qn (S) <0.2 Normal <1.0 [facility] Comment on above: Order Comment: Speci men Type: BLOOD SPECIMEN Ordering Facility: [facility] Address: [address] [place] [address] Performed By: #### 2 132-9, 6-4, 37686-9, 8 #### [facility] CLIA [id number] [address] [place] [address] [place] EUFEMIA SS-A Ab Ser-aCncon 09-17 Sjogrens syndrome-A extractable nuclear Ab Qn (S) <0.2 Normal <1.0 [facility] Comment on above: Order Comment: Speci men Type: BLOOD SPECIMEN Ordering Facility: [facility] Address: [address] [place] [address] Result Comment: Test Methodology: Multiplex flow immunoassay. Performed By: #### 2 132-9, 6-4, 91452-9, 2284-06 #### [facility] CLIA [id number] [address] [place] [address] [place] EUFEMIA SS-B Ab Ser-aCncon 09-17 Sjogrens syndrome-B extractable nuclear Ab Qn (S) <0.2 Normal <1.0 [facility] Comment on above: Order Comment: Speci men Type: BLOOD SPECIMEN Ordering Facility: [facility] Address: [address] [place] [address] Result Comment: Anti -SSB (anti-La) antibody is used as an aid in diagnosis of a variety of systemic autoimmune diseases, especially for Sjogren's syndrome and systemic lupus erythematosus. Clinical correlation is required. Test Methodology: Multiplex flow immunoassay. Performed By: #### 2 132-9, 6-4, 60376-3, 2284-06 #### [facility] CLIA [id number] [address] [place] [address] [place] Ferritin SerPl-mCncon 2023 Ferritin [Mass/Vol] 59.9 ng/mL Normal 14.7-205.1 [facility] Comment on above: Order Comment: Speci men Type: BLOOD SPECIMENOrdering Facility: [facility] Address: [address] [place] [address] Performed By: #### 5 0190-8, 3084-1, 2276-02 ####[facility] [id number] [place] [address] [place] Folate SerPl-mCncon 09-17-20 Folate [Mass/Vol] 18.8 ng/mL Normal >4.7 [facility] Comment on above: Order Comment: Fan meade Type: BLOOD SPECIMEN Ordering Facility: [facility] Address: [address] [place] [address] Performed By: #### 2 132-9, 2284-06 #### [facility] CLIA [id number] [address] [place] [address] [place] Hcys SerPl-sCncon 09-17-2024 Homocysteine [Moles/Vol] 21.2 umol/L High <15.1 [facility] Comment on above: Order Comment: Katei men Type: BLOOD SPECIMEN Ordering Facility: [facility] Address: [address] [place] [address] Performed By: #### 2 132-9, 6-4, 03842-5, 2284-06 #### [facility] CLIA [id number] [address] [place] [address] [place] IMMUNOFIXATION SCREEN, SERUM [...] monoclonal gammopathy. Clinical correlation is necessary. Normal [facility] Comment on above: Order Comment: Fan meade Type: BLOOD SPECIMEN Ordering Facility: [facility] Address: [address] [place] [address] Performed By: #### 5 7021-8 #### [facility] CLIA [id number] [address] [place] [address] MPA RESULT A poorly defined region of restricted mobility is present that may represent an M protein. Abnormal No M protein is identified. [facility] Comment on above: Order Comment: Fan meade Type: BLOOD SPECIMEN Ordering Facility: [facility] Address: [address] [place] [address] Performed By: #### 5 7021-8 #### [facility] CLIA [id number] [address] [place] [address] [place] STAFF REVIEW (MPA) Reviewed by Brianne Mosley M.D., Ph.D Normal [facility] Comment on above: Order Comment: Fan meade Type: BLOOD SPECIMEN Ordering Facility: [facility] Address: [address] [place] [address] Performed By: #### 5 7021-8 #### [facility] CLIA [id number] [address] [place] [address] [place] IMMUNOGLOBULINS,IGG,IGA,IGMo n 09-17-2024 IgA [Mass/Vol] 142 mg/dL Normal 70-400 [facility] Comment on above: Order Comment: Fan meade Type: BLOOD SPECIMEN Ordering Facility: [facility] Address: [address] [place] [address] Performed By: #### 2 132-9, 2276-4, 38142-0, 8 #### [facility] CLIA [id number] [address] [place] [address] [place] IgG [Mass/Vol] 750 mg/dL Normal 700-1600 [facility] Comment on above: Order Comment: Speci men Type: BLOOD SPECIMEN Ordering Facility: [facility] Address: [address] [place] [address] Performed By: #### 2 132-9, 6-4, 40388-6, 8 #### [facility] CLIA [id number] [address] [place] [address] [place] IgM [Mass/Vol] 23 mg/dL Low 40-230 [facility] Comment on above: Order Comment: Speci men Type: BLOOD SPECIMEN Ordering Facility: [facility] Address: [address] [place] [address] Performed By: #### 2 132-9, 2276-4, 34190-5, 8 #### [facility] CLIA [id number] [address] [place] [address] [place] Iron and Iron binding capaci ty panelon 09-17-2024 Iron [Mass/Vol] 29 ug/dL Low 41-186 [facility] Comment on above: Order Comment: Speci men Type: BLOOD SPECIMENOrdering Facility: [facility] Address: [address] [place] [address] Performed By: #### 5 0190-8, 308-1, 2276-02 ####[facility] [id number] [place] [id number] [place] Iron binding capacity [Mass/Vol] 407 ug/dL High 232-386 [facility] Comment on above: Order Comment: Speci men Type: BLOOD SPECIMENOrdering Facility: [facility] Address: [address] [place] [address] Performed By: #### 5 0190-8, 3083-1, 2275-4 ####[facility] [id number] [place] [address] [place] Iron/TIBC [Molar ratio] 7.1 % Low 15.0-57.0 C [facility] Comment on above: Order Comment: Fan meade Type: BLOOD SPECIMENOrdering Facility: [facility] Address: [address] [place] [address] Performed By: #### 5 0190-8, 3084-1, 2276-4 ####[facility] [id number] [place] [address] [place] Nadege-1 extractable nuclear Ab Qn (S)on 09-17-2024 NADEGE 1 ANTIBODY QUAL Negative Normal Negative [facility] Comment on above: Order Comment: Fan [facility] Type: BLOOD SPECIMEN Ordering Facility: [facility] Address: [address] [place] [address] Result Comment: Anti -NADEGE-1 antibody is used as an aid in diagnosis of polymyositis and dermatomyositis especially with pulmonary involvement. A negative result cannot rule out polymyositis or dermatomyositis. Clinical correlation is required. Test Methodology: Multiplex flow immunoassay. Performed By: #### 2 132-9, 2276-4, 29237-3, 2284-8 #### [facility] CLIA [id number] [address] [place] [address] [place] KAPPA/BOWEN,FREE,SERon 2023 Immunoglobulin light chains.kappa.free (S) [Mass/Vol] 45.2 mg/L High 3.3-19.4 [facility] Comment on above: Order Comment: Fan meade Type: BLOOD SPECIMEN Ordering Facility: [facility] Address: [address] [place] [address] Result Comment: Rare ly, increased serum free light chains levels may not be detected or accurately quantified due to prozone phenomenon or in high viscosity samples using this immunoturbidimetric assay. Correlation with other laboratory results and clinical findings is recommended. The [place] Free Light Chain was performed using the Binding Site Optilite immunoturbidimetric method. Result obtained with different assay methods or kits cannot be used interchangeably. Performed By: #### B CRPB1 #### [facility] CLIA [id number] [address] [place] [address] [place] #### ISMRNCNPB #### [facility] CLIA [id number] [address] [place] [address] [place] Immunoglobulin light chains.kappa/Immunoglob ulin light chains.lambda (S) [Mass ratio] 1.57 Normal 0.26-1.65 [facility] Comment on above: Order Comment: Speci men Type: BLOOD SPECIMEN Ordering Facility: [facility] Address: [address] [place] [address] Performed By: #### B CRPB1 #### [facility] CLIA [id number] [address] [place] [address] [place] #### ISMRNCNPB #### [facility] CLIA [id number] [address] [place] [address] [place] Immunoglobulin light chains.lambda.free [Mass/Vol] 28.8 mg/L High 5.7-26.3 [facility] Comment on above: Order Comment: Speci men Type: BLOOD SPECIMEN Ordering Facility: [facility] Address: [address] [place] [address] Result Comment: Rare ly, increased serum free [...] B CRPB1 #### [facility] CLIA [id number] [address] [place] [address] [place] #### ISMRNCNPB #### [facility] CLIA [id number] [address] [place] [address] [place] Methylmalonate SerPl-sCncon 09-17-2024 Methylmalonate [Moles/Vol] 0.29 umol/L Normal <=0.40 [facility] Comment on above: Order Comment: Fan meade Type: BLOOD SPECIMEN Ordering Facility: [facility] Address: [address] [place] [address] Result Comment: This test was developed, and its performance characteristics determined by the [facility] Department of Pathology and Laboratory Medicine. It has not been cleared or approved by the FDA. The [facility] Department of Pathology and Laboratory Medicine is regulated under CLIA as qualified to perform high-complexity testing. This test is used for clinical purposes. It should not be regarded as investigational or for research. Performed By: #### 2 132-9, 2276-4, 49685-5, 2284-8 #### [facility] CLIA [id number] [address] [place] [address] [place] Nuclear Ab IA Ql (S)on 09-17 RUBEN SCR QUAL Positive Abnormal Negative [facility] Comment on above: Order Comment: Fan meade Type: BLOOD SPECIMEN Ordering Facility: [facility] Address: [address] [place] [address] Result Comment: The qualitative antinuclear antibody screen test performed using the following antigens: dsDNA, Chromatin, Ribosomal P, SS-A 60, SS-A 52, SS-B, Sm, SmRNP, FILLETER A, FILLETER 68, Scl-70, Nadege-1, and Centromere B. Methodology: Multiplex flow immunoassay. 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 CLIA [id number] [address] [place] [address] [place] STAFF REVIEW, CBCDIF Normal [facility] Comment on above: Order Comment: Speci men Type: BLOOD SPECIMEN Ordering Facility: [facility] Address: [address] [place] [address] Result Comment: Norm ocytic anemia without polychromasia Thrombocytosis Performed By: #### B CRPB1 #### [facility] CLIA [id number] [address] [place] [address] [place] #### ISMRNCNPB #### [facility] CLIA [id number] [address] [place] [address] [place] RBC MORPHOLOGYon 09-17-2024 Platelets Estimate (Bld) [#/Vol] Increased Normal [facility] Comment on above: Order Comment: Speci men Type: BLOOD SPECIMEN Ordering Facility: [facility] Address: [address] [place] [address] Performed By: #### B CRPB1 #### [facility] CLIA [id number] [address] [place] [address] [place] #### ISMRNCNPB #### [facility] CLIA [id number] [address] [place] [address] [place] RBC morphology finding Nom (Bld) Reviewed: unremarkable Normal [facility] Comment on above: Order Comment: Speci men Type: BLOOD SPECIMEN Ordering Facility: [facility] Address: [address] [place] [address] Performed By: #### B CRPB1 #### [facility] CLIA [id number] [address] [place] [address] [place] #### ISMRNCNPB #### [facility] CLIA [id number] [address] [place] [address] [place] RETICULOCYTE COUNTon 024 Reticulocytes (Bld) [#/Vol] 0.078 10*3/uL [facility] #on 09-17-2024 Reticulocytes (Bld) [#/Vol] 0.37232 10*3/uL Normal 0.018-0.100 [facility] Comment on above: Order Comment: Specleroy meade Type: BLOOD SPECIMEN Ordering Facility: [facility] Address: [address] [place] [address] Performed By: #### B CRPB1 #### [facility] CLIA [id number] [address] [place] [address] [place] #### ISMRNCNPB #### [facility] CLIA [id number] [address] [place] [address] [place] Reticulocytes (Bld) [#/Vol]o n 09-17-2024 Interpretation and review of laboratory results Normal [facility] Reticulocytes/100 RBC (Bld) 2.0 % 0.4 - 2.0 % [facility] Reticulocytes/100 RBC (Bld) 2.0 % Normal 0.4-2.0 [facility] Comment on above: Order Comment: Fan meade Type: BLOOD SPECIMEN Ordering Facility: [facility] Address: [address] [place] [address] Performed By: #### B CRPB1 #### [facility] CLIA [id number] [address] [place] [address] [place] #### ISMRNCNPB #### [facility] CLIA [id number] [address] [place] [address] [place] Ribonucleoprotein extractabl e nuclear Ab Qn (S)on 09-17-2024 ANTI-FILLETER QUAL Positive Abnormal Negative [facility] Comment on above: Order Comment: Fan meade Type: BLOOD SPECIMEN Ordering Facility: [facility] Address: [address] [place] [address] Performed By: #### 2 132-9, 6-4, 07049-7, 8 #### [facility] CLIA [id number] [address] [place] [address] [place] RIBOSOMAL FILLETER QUAL Negative Normal Negative [facility] Comment on above: Order Comment: Fan meade Type: BLOOD SPECIMEN Ordering Facility: [facility] Address: [address] [place] [address] Result Comment: Anti -Ribosomal RNA (Ribosomal P) antibody is used as an aid in diagnosis of systemic autoimmune diseases especially systemic lupus erythematosus and mixed connective tissue disease. Cross-reactivity with Anti-bang antibody is not uncommon. Clinical correlation is required. Test Methodology: Multiplex flow immunoassay. Performed By: #### 2 132-9, 6-4, 05699-2, 8 #### [facility] CLIA [id number] [address] [place] [address] [place] SCL-70 extractable nuclear I gG IA Qn (S)on 09-17-2024 SCLERODERMA AB QUAL Negative Normal Negative [facility] Comment on above: Order Comment: Fan meade Type: BLOOD SPECIMEN Ordering Facility: [facility] Address: [address] [place] [address] Performed By: #### 2 132-9, 6-4, 84701-9, 2284-06 #### [facility] CLIA [id number] [address] [place] [address] [place] SCLERODERMA IGG AB <0.2 Normal <1.0 [facility] Comment on above: Order Comment: Fan meade Type: BLOOD SPECIMEN Ordering Facility: [facility] Address: [address] [place] [address] Result Comment: Scl- 70/Scleroderma antibody test is used as an aid in diagnosis of systemic sclerosis especially the diffuse cutaneous form. A negative result cannot rule out systemic sclerosis. The final interpretation should consider clinical picture and other test results such as anti-centromere antibody. Test Methodology: Multiplex flow immunoassay. Performed By: #### 2 132-9, 6-4, 68152-4, 2284-06 #### [facility] CLIA [id number] [address] [place] [address] [place] Sjogrens syndrome-A extracta ble nuclear Ab Qn (S)on 09-17-2024 SSA ANTIBODY QUAL Negative Normal Negative [facility] Comment on above: Order Comment: Speci men Type: BLOOD SPECIMEN Ordering Facility: [facility] Address: [address] [place] [address] Performed By: #### 2 132-9, 6-4, 89069-8, 8 #### [facility] CLIA [id number] [address] [place] [address] [place] Sjogrens syndrome-B extracta ble nuclear Ab Qn (S)on 09-17-2024 SSB ANTIBODY QUAL Negative Normal Negative [facility] Comment on above: Order Comment: Speci men Type: BLOOD SPECIMEN Ordering Facility: [facility] Address: [address] [place] [address] Performed By: #### 2 132-9, 6-4, 84564-4, 8 #### [facility] CLIA [id number] [address] [place] [address] [place] Bang extractable nuclear Ig G Qn (S)on 09-17-2024 SM ANTIBODY QUAL Negative Normal Negative [facility] Comment on above: Order Comment: Speci men Type: BLOOD SPECIMEN Ordering Facility: [facility] Address: [address] [place] [address] Result Comment: Anti -Sm (Bang) antibody is used as an aid in diagnosis of systemic lupus erythematosus and its presence is associated with renal disease. A negative result cannot rule out systemic lupus erythematosus. Clinical correlation is required. Test Methodology: Multiplex flow immunoassay. Performed By: #### 2 132-9, 6-4, 66660-5, 2283-8 #### [facility] CLIA [id number] [address] [place] [address] [place] Urate [facility] 4 Urate [Mass/Vol] 5.6 mg/dL Normal 2.5-6.6 [facility] Comment on above: Order Comment: Speci men Type: BLOOD SPECIMENOrdering Facility: [facility] Address: [address] [place] [address] Performed By: #### 5 0190-8, 3084-1, 2276-4 ####[facility] [id number] [address] [place] Vit B12 [facility] 024 Cobalamin (Vitamin B12) [Mass/Vol] 433 pg/mL Normal 232-1245 [facility] Comment on above: Order Comment: Speci men Type: BLOOD SPECIMEN Ordering Facility: [facility] Address: [address] [place] [address] Performed By: #### 2 132-9, 2284-8 #### [facility] CLIA [id number] [address] [place] [address] [place] XR ANKLE 3V AP/LAT/OBL RTon [...] Degenerative changes, calcaneal enthesophytes, and pes planus. Electronic Equipment Installer: PHU Transcribe Date/Time: Sep 18 2024 12:20P Dictated by : GERTRUDIS MONCADA MD This examination was interpreted and the report reviewed and electronically signed by: GERTRUDIS MONCADA MD on Sep 18 2024 12:22PM EST [id number] Normal [facility] XR Ankle - right AP and Late ral and obliqueon 09-17-2024 Radiology Study observation (narrative) [facility] Zinc SerPl-mCncon 09-17-2024 Zinc [Mass/Vol] 55 ug/dL Low 60-120 [facility] Comment on above: Order Comment: Fan meade Type: BLOOD SPECIMEN Ordering Facility: [facility] Address: [address] [place] [address] Result Comment: This test was developed, and its performance characteristics determined by the [facility] Department of Pathology and Laboratory Medicine. It has not been cleared or approved by the FDA. The [facility] Department of Pathology and Laboratory Medicine is regulated under CLIA as qualified to perform high-complexity testing. This test is used for clinical purposes. It should not be regarded as investigational or for research. Performed By: #### 2 132-9, 2276-4, 30148-3, 2283-8 #### [facility] CLIA [id number] [address] [place] [address] [place] cCP IgG SerPl-aCncon 024 Cyclic citrullinated peptide IgG Qn <15 Normal <20 [facility] Comment on above: Order Comment: Fan meade Type: BLOOD SPECIMEN Ordering Facility: [facility] Address: [address] [place] [address] Performed By: #### 2 132-9, 2276-4, 71926-1, 2283-8 #### [facility] CLIA [id number] [place] CNOVon 09-13-2024 CNOV Office Visit ([facility] ) YUSUF MEDINA ([id number]) 1935 F [place] Date Time Provider Department 09/13/24 10:00 AM MIGDALIA CRAMER [facility] During your visit today, we recorded [...] changes, you (more content not included)... Normal [facility] YUSUF MEDINA ([id number]) 1935 F [facility] Date Time Provider Department 08/21/24 MIGDALIA CRAMER [facility] During your visit today, we recorded [...] as of 08/24/2024 - blood sugar diagnostic (Who is Undercover SpyTOUCH ULTRA TEST) test strip Test blood sugar [...] this patient by: CAREGIVER José Miguel Swanson [facility] Problem List As Of Date 08/21/2024 Noted [...] 12/07/2017 Cervic (more content not included)... Normal [facility] ALBUMIN/CREATININE RATIO, UR INEon 08-14-2024 Albumin DL <= 20 mg/L (U) [Mass/Vol] 387.7 mg/L Normal [facility] Comment on above: Order Comment: Speci halina Type: BLOOD SPECIMEN Ordering Facility: [facility] Address: [address] [place] [address] Performed By: #### B CRPB1 #### [facility] CLIA [id number] [address] [place] [address] [place] #### ISMRNCNPB #### [facility] CLIA [id number] [address] [place] [address] [place] Albumin/Creatinine (U) [Mass ratio] 483 mg/g High <30 [facility] Comment on above: Order Comment: Speci men Type: BLOOD SPECIMEN Ordering Facility: [facility] Address: [address] [place] [address] Result Comment: Adul t Male and Female [...] B CRPB1 #### [facility] CLIA [id number] [address] [place] [address] [place] #### ISMRNCNPB #### [facility] CLIA [id number] [address] [place] [address] [place] Creatinine (U) [Mass/Vol] 80.2 mg/dL Normal 20.0-300.0 [facility] Comment on above: Order Comment: Speci men Type: BLOOD SPECIMEN Ordering Facility: [facility] Address: [address] [place] [address] Performed By: #### B CRPB1 #### [facility] CLIA [id number] [address] [place] [address] [place] #### ISMRNCNPB #### [facility] CLIA [id number] [address] [place] [address] [place] Bacteria Ur Culton [...] technique or straight catheterization for???urine???collecti on. Normal [facility] Comment on above: Performed By: #### 6 30-4 ####[facility] [id number] [address] [id number], [place] [address] [place] Basic metabolic 2000 panelon 08-14-2024 Anion gap [Moles/Vol] 13 mmol/L Normal 8-15 [facility] Comment on above: Order Comment: Speci men Type: BLOOD SPECIMEN Ordering Facility: [facility] Address: [address] [place] [address] Performed By: #### 5 7021-8 #### [facility]ENNIFER [facility] CLIA [id number] [facility] [place] [address] [place] Calcium [Mass/Vol] 9.9 mg/dL Normal 8.5-10.2 [facility] Comment on above: Order Comment: Speci men Type: BLOOD SPECIMEN Ordering Facility: [facility] Address: [address] [place] [address] Performed By: #### 5 7021-8 #### CHAZMINDY [facility] CLIA [id number] [address] [place] [address] [place] Chloride [Moles/Vol] 96 mmol/L Low 98-107 [facility] Comment on above: Order Comment: Speci men Type: BLOOD SPECIMEN Ordering Facility: [facility] Address: [address] [place] [address] Performed By: #### 5 7021-8 #### JENNIFER [facility] CLIA [id number] [address] [place] [address] [place] CO2 [Moles/Vol] 24 mmol/L Normal 22-30 [facility] Comment on above: Order Comment: Speci men Type: BLOOD SPECIMEN Ordering Facility: [facility] Address: [address] [place] [address] Performed By: #### 5 7021-8 #### [facility] CLIA [id number] [address] [place] [address] [place] Creatinine [Mass/Vol] 0.89 mg/dL Normal 0.58-0.96 [facility] Comment on above: Order Comment: Speci men Type: BLOOD SPECIMEN Ordering Facility: [facility] Address: [address] [place] [address] Performed By: #### 5 7021-8 #### [facility] CLIA [id number] [address] [place] [address] [place] Creatinine and Glomerular filtration rate.predicted panel (S/P/Bld) 62 mL/min/1.73m??? Normal >=60 [facility] Comment on above: Order Comment: Fan meade Type: BLOOD SPECIMEN Ordering Facility: [facility] Address: [address] [place] [address] Result Comment: Hilda mated Glomerular Filtration Rate [...] GFR. Performed By: #### 5 7021-8 #### [facility] CLIA [id number] [address] [place] [address] [place] Glucose [Mass/Vol] 245 mg/dL High 74-99 [facility] Comment on above: Order Comment: Fan meade Type: BLOOD SPECIMEN Ordering Facility: [facility] Address: [address] [place] [address] Result Comment: The [place] Diabetes Association (ADA) provides guidance for cutoff [...] Standards of Medical Care in Diabetes 2016, [place] Diabetes Association. Diabetes Care. 2016.39(Suppl 1). Performed By: #### 5 7021-8 #### [facility] CLIA [id number] [address] [place] [address] [place] Potassium [Moles/Vol] 4.9 mmol/L Normal 3.7-5.1 [facility] Comment on above: Order Comment: Speci men Type: BLOOD SPECIMEN Ordering Facility: [facility] Address: [address] [place] [address] Performed By: #### 5 7021-8 #### CHAZRIAZ [facility] CLIA [id number] [address] [place] [address] [place] Sodium [Moles/Vol] 133 mmol/L Low 136-144 [facility] Comment on above: Order Comment: Speci men Type: BLOOD SPECIMEN Ordering Facility: [facility] Address: [address] [place] [address] Performed By: #### 5 7021-8 #### [facility] CLIA [id number] [address] [place] [address] [place] Urea nitrogen [Mass/Vol] 29 mg/dL High 7-21 [facility] Comment on above: Order Comment: Speci men Type: BLOOD SPECIMEN Ordering Facility: [facility] Address: [address] [place] [address] Performed By: #### 5 7021-8 #### [facility] CLIA [id number] [address] [place] [address] [place] CBC W Ordered Manual Differe ntial panel (Bld)on 08-14-2024 Basophils (Bld) [#/Vol] 0.05 10*3/uL Normal <0.11 [facility] Comment on above: Order Comment: Speci men Type: BLOOD SPECIMENOrdering Facility: [facility] Address: [address] [place] [address] Performed By: #### 5 7782-5, RADHA, 4537-7 ####[facility] [id number] [place] [address] [place] Basophils/100 WBC (Bld) 0.4 % Normal [facility] Comment on above: Order Comment: Speci men Type: BLOOD SPECIMENOrdering Facility: [facility] Address: [address] [place] [address] Performed By: #### 5 7782-5, STFRZAID, 4537-05 ####[facility] [id number] [place] [address] [place] Differential cell count method Nom (Bld) Auto Normal [facility] Comment on above: Order Comment: Speci men Type: BLOOD SPECIMENOrdering Facility: [facility] Address: [address] [place] [address] Performed By: #### 5 7782-5, STFRZAID, 4537-05 ####[facility] [id number] [place] [address] [place] Eosinophils (Bld) [#/Vol] 0.04 10*3/uL Normal <0.46 [facility] Comment on above: Order Comment: Speci men Type: BLOOD SPECIMENOrdering Facility: [facility] Address: [address] [place] [address] Performed By: #### 5 7782-5, STEVERARDO, 4537-05 ####[facility] [id number] [place] [address] [place] Eosinophils/100 WBC (Bld) 0.3 % Normal [facility] Comment on above: Order Comment: Speci men Type: BLOOD SPECIMENOrdering Facility: [facility] Address: [address] [place] [address] Performed By: #### 5 7782-5, STFRZAID, 4537-05 ####[facility] [id number] [place] [address] [place] Erythrocyte distribution width (RBC) [Ratio] 14.9 % Normal 11.5-15.0 [facility] Comment on above: Order Comment: Speci men Type: BLOOD SPECIMENOrdering Facility: [facility] Address: [address] [place] [address] Performed By: #### 5 7782-5, RADHA 4537-05 ####[facility] [id number] [address] [address] [place] Hematocrit (Bld) [Volume fraction] 35.2 % Low 36.0-46.0 [facility] Comment on above: Order Comment: Speci men Type: BLOOD SPECIMENOrdering Facility: [facility] Address: [address] [place] [address] Performed By: #### 5 7782-5, RADHA 4537-05 ####[facility] [id number] [place] [address] [place] Hemoglobin (Bld) [Mass/Vol] 11.2 g/dL Low 11.5-15.5 [facility] Comment on above: Order Comment: Speci men Type: BLOOD SPECIMENOrdering Facility: [facility] Address: [address] [place] [address] Performed By: #### 5 7782-5, RADHA 4537-05 ####[facility] [id number] [place] [address] [place] Immature granulocytes (Bld) [#/Vol] 0.06 10*3/uL Normal <0.10 [facility] Comment on above: Order Comment: Speci men Type: BLOOD SPECIMENOrdering Facility: [facility] Address: [address] [place] [address] Performed By: #### 5 7782-5, RADHA 4537-05 ####[facility] [id number] [place] [id number] [place] Immature granulocytes/100 WBC (Bld) 0.5 % Normal [facility] Comment on above: Order Comment: Speci men Type: BLOOD SPECIMENOrdering Facility: [facility] Address: [address] [place] [address] Performed By: #### 5 7782-5, RADHA 4537-05 ####[facility] [id number] [place] [address] [place] Lymphocytes (Bld) [#/Vol] 1.40 10*3/uL Normal 1.00-4.00 [facility] Comment on above: Order Comment: Speci men Type: BLOOD SPECIMENOrdering Facility: [facility] Address: [address] [place] [address] Performed By: #### 5 7782-5, RADHA 7 ####[facility] [id number] [place] [address] [place] Lymphocytes/100 WBC (Bld) 11.3 % Normal [facility] Comment on above: Order Comment: Speci men Type: BLOOD SPECIMENOrdering Facility: [facility] Address: [address] [place] [address] Performed By: #### 5 7782-5, RADHA 7 ####[facility] [id number] [place] [address] [place] MCH (RBC) [Entitic mass] 28.4 pg Normal 26.0-34.0 [facility] Comment on above: Order Comment: Speci men Type: BLOOD SPECIMENOrdering Facility: [facility] Address: [address] [place] [address] Performed By: #### 5 7782-5, RADHA 7 ####[facility] [id number] [place] [address] [place] MCHC (RBC) [Mass/Vol] 31.8 g/dL Normal 30.5-36.0 [facility] Comment on above: Order Comment: Speci men Type: BLOOD SPECIMENOrdering Facility: [facility] Address: [address] [place] [address] Performed By: #### 5 7782-5, RADHA 7 ####[facility] [id number] [place] [address] [place] MCV (RBC) [Entitic vol] 89.3 fL Normal 80.0-100.0 [facility] Comment on above: Order Comment: Speci men Type: BLOOD SPECIMENOrdering Facility: [facility] Address: [address] [place] [address] Performed By: #### 5 7782-5, RADHA 7 ####[facility] [id number] [place] [address] [place] Monocytes (Bld) [#/Vol] 0.83 10*3/uL Normal <0.87 [facility] Comment on above: Order Comment: Speci men Type: BLOOD SPECIMENOrdering Facility: [facility] Address: [address] [place] [address] Performed By: #### 5 7782-5, RADHA 4537-05 ####[facility] [id number] [place] [address] [place] Monocytes/100 WBC (Bld) 6.7 % Normal [facility] Comment on above: Order Comment: Speci men Type: BLOOD SPECIMENOrdering Facility: [facility] Address: [address] [place] [address] Performed By: #### 5 7782-5, RADHA, 4537-05 ####[facility] [id number] [place] [address] [place] Neutrophils (Bld) [#/Vol] 10.03 10*3/uL High 1.45-7.50 [facility] Comment on above: Order Comment: Speci men Type: BLOOD SPECIMENOrdering Facility: [facility] Address: [address] [place] [address] Performed By: #### 5 7782-5, STEVERARDO, 4537-05 ####[facility] [id number] [place] [address] [place] Neutrophils/100 WBC (Bld) 80.8 % Normal [facility] Comment on above: Order Comment: Speci men Type: BLOOD SPECIMENOrdering Facility: [facility] Address: [address] [place] [address] Performed By: #### 5 7782-5, RADHA 4537-05 ####[facility] [id number] [place] [address] [place] Nucleated RBC (Bld) [#/Vol] 10*3/uL Normal <0.01 [facility] Comment on above: Order Comment: Speci men Type: BLOOD SPECIMENOrdering Facility: [facility] Address: [address] [place] [address] Performed By: #### 5 7782-5, RADHA 4537-05 ####[facility] [id number] [place] [address] [place] Nucleated RBC/100 WBC (Bld) [Ratio] 0.0 /100 WBC Normal [facility] Comment on above: Order Comment: Speci men Type: BLOOD SPECIMENOrdering Facility: [facility] Address: [address] [place] [address] Performed By: #### 5 7782-5, STEVERARDO 4537-05 ####[facility] [id number] [place] [address] [place] Platelet mean volume (Bld) [Entitic vol] 10.2 fL Normal 9.0-12.7 [facility] Comment on above: Order Comment: Speci men Type: BLOOD SPECIMENOrdering Facility: [facility] Address: [address] [place] [address] Performed By: #### 5 7782-5, STEVERARDO, 4537-05 ####[facility] [id number] [place] [address] [place] Platelets (Bld) [#/Vol] 330 10*3/uL Normal 150-400 [facility] Comment on above: Order Comment: Speci men Type: BLOOD SPECIMENOrdering Facility: [facility] Address: [address] [place] [address] Performed By: #### 5 7782-5, STEVERARDO, 4537-7 ####[facility] [id number] [place] [address] [place] RBC (Bld) [#/Vol] 3.94 10*6/uL Normal 3.90-5.20 [facility] Comment on above: Order Comment: Speci men Type: BLOOD SPECIMENOrdering Facility: [facility] Address: [address] [place] [address] Performed By: #### 5 7782-5, RADHA, 4537-7 ####[facility] [id number] [place] [address] [place] WBC (Bld) [#/Vol] 12.41 10*3/uL High 3.70-11.00 [facility] Comment on above: Order Comment: Speci men Type: BLOOD SPECIMENOrdering Facility: [facility] Address: [address] [place] [address] Performed By: #### 5 7782-5, RADHA, 4537-7 ####[facility] [id number] [place] [address] [place] CNOVon 08-14-2024 CNOV Office Visit ([facility] ) YUSUF MEDINA ([id number]) 1935 [address]INGUEZ Date Time Provider Department 08/14/24 10:40 AM MIGDALIA CRAMER [facility] During your visit today, we recorded [...] COMBINE WITH DICLOFENAC GEL blood sugar diagnostic (Who is Undercover SpyTOUCH ULTRA TEST) test strip Test blood sugar [...] no acute (more content not included)... Normal [facility] CRP SerPl-mCncon 08-14-2024 CRP [Mass/Vol] 7.8 mg/dL High <0.9 [facility] Comment on above: Order Comment: Speci men Type: BLOOD SPECIMEN Ordering Facility: [facility] Address: [address] [place] [address] Performed By: #### 5 7021-8 #### [facility] CLIA [id number] [address] [place] [address] [place] ESR Westergren method (Bld) [Velocity]on 08-14-2024 ESR (Bld) [Velocity] 40 mm/h High 0-[address] [facility] Comment on above: Order Comment: Speci men Type: BLOOD SPECIMENOrdering Facility: [facility] Address: [address] [place] [address] Performed By: #### 5 7782-5, RADHA 4537-7 ####[facility] [id number] [address] STATES OF [facility] HbA1c (Bld)on 08-14-2024 Average glucose Estimated from glycated hemoglobin (Bld) [Mass/Vol] 197 mg/dL Normal [facility] Comment on above: Order Comment: Speci men Type: BLOOD SPECIMENOrdering Facility: [facility] Address: [address] [place] [address] Result Comment: eAG: (Estimated average glucose) is a calculated value from HgbA1c and is membership sales representative of the average blood glucose level in the last 2-3 month period. Performed By: #### 5 5454-3 ####[facility] [id number] [place] [address] [place] HbA1c (Bld) [Mass fraction] 8.5 % High 4.3-5.6 [facility] Comment on above: Order Comment: Fan meade Type: BLOOD SPECIMENOrdering Facility: [facility] Address: [address] [place] [address] Result Comment: [place] Diabetes Association guidelines indicate that patients with HgbA1c in the range 5.7-6.4% are at increased risk for development of diabetes, and intervention by lifestyle modification may be beneficial. HgbA1c greater or equal to 6.5% is considered diagnostic of diabetes. Performed By: #### 5 5454-3 ####[facility] [id number] [address] [place] PATHOLOGIST INTERPRETATION C BC/DIFFon 08-14-2024 Upholstery Repairer review Mckay (Unsp spec) [Interp] No review performed. Normal [facility] Comment on above: Order Comment: Fan meade Type: BLOOD SPECIMENOrdering Facility: [facility] Address: [address] [place] [address] Performed By: #### 5 7782-5, RADHA 7 ####[facility] [id number] [address] OF [facility] STAFF REVIEW, CBCDIF Normal [facility] Comment on above: Order Comment: Fan meade Type: BLOOD SPECIMENOrdering Facility: [facility] Address: [address] [place] [address] Result Comment: The Pathologist Interpretation on this sample was cancelled because the hematology analyzer did not flag any parameters as requiring manual review. If there is a specific clinical concern for which you would like a pathologist to review the blood smear, please call Lab Client Services within 28 days. Performed By: #### 5 7782-5, RADHA, 4537-05 ####[facility] [id number] [place] [address] [place] PROTEIN ELECTROPHORESIS SERU M (P)on 08-14-2024 Albumin [Mass/Vol] 3.80 g/dL Normal 3.43-5.41 [facility] Comment on above: Order Comment: Speci men Type: BLOOD SPECIMEN Ordering Facility: [facility] Address: [address] [place] [address] Performed By: #### 2 132-9, 2276-4, 44577-1, 2284-8 #### [facility] CLIA [id number] [address] [place] [address] [place] Alpha 1 globulin Elph [Mass/Vol] 0.46 g/dL High 0.18-0.43 [facility] Comment on above: Order Comment: Speci men Type: BLOOD SPECIMEN Ordering Facility: [facility] Address: [address] [place] [address] Performed By: #### 2 132-9, 6-4, 67172-4, 2283-8 #### [facility] CLIA [id number] [address] [place] [address] [place] Alpha 2 globulin Elph [Mass/Vol] 1.03 g/dL High 0.42-0.98 [facility] Comment on above: Order Comment: Speci men Type: BLOOD SPECIMEN Ordering Facility: [facility] Address: [address] [place] [address] Performed By: #### 2 132-9, 6-4, 08932-6, 2283-8 #### [facility] CLIA [id number] [address] [place] [address] [place] Beta globulin Elph [Mass/Vol] 0.84 g/dL Normal 0.61-1.17 [facility] Comment on above: Order Comment: Speci men Type: BLOOD SPECIMEN Ordering Facility: [facility] Address: [address] [place] [address] Performed By: #### 2 132-9, 2276-4, 58737-4, 2284-8 #### [facility] CLIA [id number] [address] [place] [address] [place] Gamma globulin Elph [Mass/Vol] 0.58 g/dL Normal 0.53-1.51 [facility] Comment on above: Order Comment: Fan meade Type: BLOOD SPECIMEN Ordering Facility: [facility] Address: [address] [place] [address] Performed By: #### 2 132-9, 2276-4, 77989-7, 2284-8 #### [facility] CLIA [id number] [address] [place] [address] [place] INTERPRETATION COMMENT FOR PROTEIN ELECTROPHORESIS The atypical region is relatively poorly defined and may represent an unusual presentation of polyclonal immunoglobulins, but cannot rule out the presence of a low level M protein. If clinically indicated, monoclonal protein analysis and serum free light chain analysis are suggested to evaluate further for monoclonal gammopathy. Normal [facility] Comment on above: Order Comment: Fan meade Type: BLOOD SPECIMEN Ordering Facility: [facility] Address: [address] [place] [address] Performed By: #### 2 132-9, 2276-4, 90029-5, 2283-8 #### [facility] CLIA [id number] [address] [place] [address] [place] M-PROTEIN LOCATION Normal [facility] Comment on above: Order Comment: Fan meade Type: BLOOD SPECIMEN Ordering Facility: [facility] Address: [address] [place] [address] Result Comment: Not Applicable. Performed By: #### 2 132-9, 2276-4, 34362-2, 2284-8 #### [facility] CLIA [id number] [address] [place] [address] [place] Protein Fractions [Interp] An atypical region of restricted mobility is identified on protein electrophoresis. Abnormal No definitive M protein is identified on protein electrophore sis. [facility] Comment on above: Order Comment: Fan meade Type: BLOOD SPECIMEN Ordering Facility: [facility] Address: [address] [place] [address] Performed By: #### 2 132-9, 2276-4, 71485-8, 2284-8 #### [facility] CLIA [id number] [address] [place] [address] [place] Protein.monoclonal Elph [Mass/Vol] 0.00 g/dL Normal <=0.00 [facility] Comment on above: Order Comment: Speci men Type: BLOOD SPECIMEN Ordering Facility: [facility] Address: [address] [place] [address] Performed By: #### 2 132-9, 2276-4, 36394-3, 2284-8 #### [facility] CLIA [id number] [address] [place] [address] [place] SPE STAFF REVIEW Reviewed by Tanisha Sanchez MD [facility] Comment on above: Order Comment: Speci men Type: BLOOD SPECIMEN Ordering Facility: [facility] Address: [address] [place] [address] Performed By: #### 2 132-9, 2276-4, 91589-6, 2284-8 #### [facility] CLIA [id number] [address] [place] [address] [place] Prot SerPl-mCncon 08-14-2024 Protein [Mass/Vol] 6.7 g/dL Normal 6.3-8.0 [facility] Comment on above: Order Comment: Speci men Type: BLOOD SPECIMEN Ordering Facility: [facility] Address: [address] [place] [address] Performed By: #### 5 7021-8 #### [facility] CLIA [id number] [address] [place] [address] [place] Prot Ur-mCncon 08-14-2024 Protein (U) [Mass/Vol] 78 mg/dL High 0-20 [facility] Comment on above: Order Comment: Speci men Type: BLOOD SPECIMEN Ordering Facility: [facility] Address: [address] [place] [address] Performed By: #### B [id number] #### [facility] CLIA [id number] [address] [place] [address] [place] #### [id number] #### [facility] CLIA [id number] [address] [place] [address] [place] TSH SerPl-aCncon 08-14-2024 TSH Qn 1.120 m[IU]/L Normal 0.270-4.200 [facility] Comment on above: Order Comment: Speci men Type: BLOOD SPECIMEN Ordering Facility: [facility] Address: [address] [place] [address] Performed By: #### 5 7021-8 #### [facility] CLIA [id number] [facility] [place] [address] [place] URINALYSIS, DIPSTICK ONLYon 08-14-2024 Bilirubin Ql (U) Negative Normal Negative [facility] Comment on above: Order Comment: Speci men Type: BLOOD SPECIMEN Ordering Facility: [facility] Address: [address] [place] [address] Performed By: #### 2 132-9, 2276-4, 82301-7, 2283-8 #### [facility] CLIA [id number] [address] [place] [address] [place] Clarity (Unsp spec) Clear Normal Clear [facility] Comment on above: Order Comment: Speci men Type: BLOOD SPECIMEN Ordering Facility: [facility] Address: [address] [place] [address] Performed By: #### 2 132-9, 2276-4, 18018-1, 228-8 #### [facility] CLIA [id number] [address] [place] [address] [place] Color (U) Yellow Normal Yellow [facility] Comment on above: Order Comment: Speci men Type: BLOOD SPECIMEN Ordering Facility: [facility] Address: [address] [place] [address] Performed By: #### 2 132-9, 2276-4, 74224-8, 2283-8 #### [facility] CLIA [id number] [address] [place] [address] [place] Glucose Test strip (U) [Mass/Vol] 1+ Abnormal Negative [facility] Comment on above: Order Comment: Speci men Type: BLOOD SPECIMEN Ordering Facility: [facility] Address: [address] [place] [address] Performed By: #### 2 132-9, 2276-4, 76451-9, 2283-8 #### [facility] CLIA [id number] [address] [place] [address] [place] Hemoglobin Ql (U) Negative Normal Negative [facility] Comment on above: Order Comment: Speci men Type: BLOOD SPECIMEN Ordering Facility: [facility] Address: [address] [place] [address] Performed By: #### 2 132-9, 6-4, 08251-0, 2283-8 #### [facility] CLIA [id number] [address] [place] [address] [place] Ketones Ql (U) Negative Normal Negative [facility] Comment on above: Order Comment: Speci men Type: BLOOD SPECIMEN Ordering Facility: [facility] Address: [address] [place] [address] Performed By: #### 2 132-9, 2276-4, 91671-5, 2283-8 #### [facility] CLIA [id number] [address] [place] [address] [place] Leukocyte esterase Test strip Ql (U) Negative Normal Negative [facility] Comment on above: Order Comment: Speci men Type: BLOOD SPECIMEN Ordering Facility: [facility] Address: [address] [place] [address] Performed By: #### 2 132-9, 2276-4, 00176-1, 2283-8 #### [facility] CLIA [id number] [address] [place] [address] [place] Nitrite Ql (U) Negative Normal Negative [facility] Comment on above: Order Comment: Speci men Type: BLOOD SPECIMEN Ordering Facility: [facility] Address: [address] [place] [address] Performed By: #### 2 132-9, 6-4, 79688-8, 2283-8 #### [facility] CLIA [id number] [address] [place] [address] [place] pH (U) 6.5 [pH] Normal <8.5 [facility] Comment on above: Order Comment: Speci men Type: BLOOD SPECIMEN Ordering Facility: [facility] Address: [address] [place] [address] Performed By: #### 2 132-9, 6-4, 53463-5, 2283-8 #### [facility] CLIA [id number] [address] [place] [address] [place] Protein (U) [Mass/Vol] 2+ Abnormal Negative [facility] Comment on above: Order Comment: Speci men Type: BLOOD SPECIMEN Ordering Facility: [facility] Address: [address] [place] [address] Performed By: #### 2 132-9, 6-4, 61022-2, 2283-8 #### [facility] CLIA [id number] [address] [place] [address] [place] Specific gravity (U) [Rel density] 1.020 Normal 1.005-1.030 [facility] Comment on above: Order Comment: Speci men Type: BLOOD SPECIMEN Ordering Facility: [facility] Address: [address] [place] [address] Performed By: #### 2 132-9, 6-4, 02931-6, 2283-8 #### [facility] CLIA [id number] [address] [place] [address] [place] Urobilinogen Ql (U) 1.0 EU/dL Normal 0.2-1.0 EU/dL [facility] Comment on above: Order Comment: Speci men Type: BLOOD SPECIMEN Ordering Facility: [facility] Address: [address] [place] [address] Performed By: #### 2 132-9, 2276-4, 86044-6, 2284-8 #### [facility] CLIA [id number] [address] [place] [address] [place] URINE PROTEIN ELECTROPHORESI S RANDOM (P)on 08-14-2024 Albumin Elph (U) [Mass fraction] 69.11 % Normal [facility] Comment on above: Order Comment: Speci men Type: URINE SPECIMENOrdering Facility: [facility] Address: [address] [place] [address] Performed By: #### L [id number] ####[facility] [id number] [place] [address] [place] Alpha 1 globulin Elph (U) [Mass fraction] 7.87 % Normal [facility] Comment on above: Order Comment: Speci men Type: URINE SPECIMENOrdering Facility: [facility] Address: [address] [place] [address] Performed By: #### L [id number] ####[facility] [id number] [place] [address] [place] Alpha 2 globulin Elph (U) [Mass fraction] 6.40 % Normal [facility] Comment on above: Order Comment: Speci men Type: URINE SPECIMENOrdering Facility: [facility] Address: [address] [place] [address] Performed By: #### L [id number] ####[facility] [id number] [place] [address] [place] Beta globulin Elph (U) [Mass fraction] 11.20 % Normal [facility] Comment on above: Order Comment: Speci men Type: URINE SPECIMENOrdering Facility: [facility] Address: [address] [place] [address] Performed By: #### L [id number] ####[facility] [id number] [address] [place] [facility] Gamma globulin Elph (U) [Mass fraction] 5.42 % Normal [facility] Comment on above: Order Comment: Speci men Type: URINE SPECIMENOrdering Facility: [facility] Address: [address] [place] [address] Performed By: #### L [id number] ####[facility] [id number] [address] [place] Protein Fractions Elph Mckay (U) [Interp] No definitive M protein is identified on protein electrophoresis. Normal No definitive M protein is identified on protein electrophore sis. [facility] Comment on above: Order Comment: Speci men Type: URINE SPECIMENOrdering Facility: [facility] Address: [address] [place] [address] Performed By: #### L [id number] ####[facility] [id number] [address] [place] STAFF REVIEW (URINE ELECTRO) Reviewed by Brianne Mosley M.D., Ph.D Normal [facility] Comment on above: Order Comment: Speci men Type: URINE SPECIMENOrdering Facility: [facility] Address: [address] [place] [address] Performed By: #### L [id number] ####[facility] [id number] [place] [address] [place] ALLIED HEALTHon 08-13-2024 ALLIED HEALTH HNO ID: [id number] Author: TYESHA CHENEY RT(R) Service: Radiology Author [...] PATIENT PRESENTS WITH AN IMPLANTABLE OR ATTACHED ORACLE IAM CONSULTANT: No RADIOLOGY DEPARTMENT: General X-ray: Exam(s) Completed: Chest X-Ray PERIPHERAL IV DATA: Not applicable SIGNED BY: RT [place](R) August 13, 2024 3:49 PM Normal [facility] CBC W Auto Differential pane l (Bld)on 08-13-2024 Basophils (Bld) [#/Vol] 0.03 10*3/uL Normal <0.11 [facility] Comment on above: Order Comment: Speci men Type: BLOOD SPECIMEN Ordering Facility: [facility] Address: [address] [place] [address] Performed By: #### 5 7021-8 #### [facility] CLIA [id number] [address] [place] [address] [place] Basophils/100 WBC (Bld) 0.2 % Normal [facility] Comment on above: Order Comment: Speci men Type: BLOOD SPECIMEN Ordering Facility: [facility] Address: [address] [place] [address] Performed By: #### 5 7021-8 #### [facility] CLIA [id number] [address] [place] [address] [place] Differential cell count method Nom (Bld) Auto Normal [facility] Comment on above: Order Comment: Speci men Type: BLOOD SPECIMEN Ordering Facility: [facility] Address: [address] [place] [address] Performed By: #### 5 7021-8 #### [facility] CLIA [id number] [address] [place] [address] [place] Eosinophils (Bld) [#/Vol] 10*3/uL Normal <0.46 [facility] Comment on above: Order Comment: Speci men Type: BLOOD SPECIMEN Ordering Facility: [facility] Address: [address] [place] [address] Performed By: #### 5 7021-8 #### [facility] CLIA [id number] [address] [place] [address] [place] Eosinophils/100 WBC (Bld) 0.1 % Normal [facility] Comment on above: Order Comment: Speci men Type: BLOOD SPECIMEN Ordering Facility: [facility] Address: [address] [place] [address] Performed By: #### 5 7021-8 #### [facility] CLIA [id number] [address] [place] [address] [place] Erythrocyte distribution width (RBC) [Ratio] 14.6 % Normal 11.5-15.0 [facility] Comment on above: Order Comment: Speci men Type: BLOOD SPECIMEN Ordering Facility: [facility] Address: [address] [place] [address] Performed By: #### 5 7021-8 #### [facility] CLIA [id number] [address] [place] [address] [place] Hematocrit (Bld) [Volume fraction] 33.5 % Low 36.0-46.0 [facility] Comment on above: Order Comment: Speci men Type: BLOOD SPECIMEN Ordering Facility: [facility] Address: [address] [place] [address] Performed By: #### 5 7021-8 #### [facility] CLIA [id number] [address] [place] [address] [place] Hemoglobin (Bld) [Mass/Vol] 10.9 g/dL Low 11.5-15.5 [facility] Comment on above: Order Comment: Speci men Type: BLOOD SPECIMEN Ordering Facility: [facility] Address: [address] [place] [address] Performed By: #### 5 7021-8 #### [facility] CLIA [id number] [address] Immature granulocytes (Bld) [#/Vol] 0.09 10*3/uL Normal <0.10 [facility] Comment on above: Order Comment: Speci men Type: BLOOD SPECIMEN Ordering Facility: [facility] Address: [address] [place] [address] Performed By: #### 5 7021-8 #### [facility] CLIA [id number] [address] [place] [address] Immature granulocytes/100 WBC (Bld) 0.5 % Normal [facility] Comment on above: Order Comment: Speci men Type: BLOOD SPECIMEN Ordering Facility: [facility] Address: [address] [place] [address] Performed By: #### 5 7021-8 #### [facility] CLIA [id number] [address] [place] [address] Lymphocytes (Bld) [#/Vol] 0.91 10*3/uL Low 1.00-4.00 [facility] Comment on above: Order Comment: Speci men Type: BLOOD SPECIMEN Ordering Facility: [facility] Address: [address] [place] [address] Performed By: #### 5 7021-8 #### [facility] CLIA [id number] [address] [place] [address] Lymphocytes/100 WBC (Bld) 5.3 % Normal [facility] Comment on above: Order Comment: Speci men Type: BLOOD SPECIMEN Ordering Facility: [facility] Address: [address] [place] [address] Performed By: #### 5 7021-8 #### [facility] CLIA [id number] [address] [place] [address] [place] MCH (RBC) [Entitic mass] 28.6 pg Normal 26.0-34.0 [facility] Comment on above: Order Comment: Speci men Type: BLOOD SPECIMEN Ordering Facility: [facility] Address: [address] [place] [address] Performed By: #### 5 7021-8 #### [facility] CLIA [id number] [address] [place] [address] [place] MCHC (RBC) [Mass/Vol] 32.5 g/dL Normal 30.5-36.0 [facility] Comment on above: Order Comment: Speci men Type: BLOOD SPECIMEN Ordering Facility: [facility] Address: [address] [place] [address] Performed By: #### 5 7021-8 #### [facility] CLIA [id number] [address] [place] [address] MCV (RBC) [Entitic vol] 87.9 fL Normal 80.0-100.0 [facility] Comment on above: Order Comment: Speci men Type: BLOOD SPECIMEN Ordering Facility: [facility] Address: [address] [place] [address] Performed By: #### 5 7021-8 #### [facility] CLIA [id number] [address] [place] [address] Monocytes (Bld) [#/Vol] 0.91 10*3/uL High <0.87 [facility] Comment on above: Order Comment: Speci men Type: BLOOD SPECIMEN Ordering Facility: [facility] Address: [address] [place] [address] Performed By: #### 5 7021-8 #### [facility] CLIA [id number] [address] [place] [address] Monocytes/100 WBC (Bld) 5.3 % Normal [facility] Comment on above: Order Comment: Speci men Type: BLOOD SPECIMEN Ordering Facility: [facility] Address: [address] [place] [address] Performed By: #### 5 7021-8 #### [facility] CLIA [id number] [address] [place] [address] [place] Neutrophils (Bld) [#/Vol] 15.20 10*3/uL High 1.45-7.50 [facility] Comment on above: Order Comment: Speci men Type: BLOOD SPECIMEN Ordering Facility: [facility] Address: [address] [place] [address] Performed By: #### 5 7021-8 #### [facility] CLIA [id number] [address] [place] [address] [place] Neutrophils/100 WBC (Bld) 88.6 % Normal [facility] Comment on above: Order Comment: Speci men Type: BLOOD SPECIMEN Ordering Facility: [facility] Address: [address] [place] [address] Performed By: #### 5 7021-8 #### [facility] CLIA [id number] [address] [place] [address] [place] Nucleated RBC (Bld) [#/Vol] 10*3/uL Normal <0.01 [facility] Comment on above: Order Comment: Speci men Type: BLOOD SPECIMEN Ordering Facility: [facility] Address: [address] [place] [address] Performed By: #### 5 7021-8 #### [facility] CLIA [id number] [address] [place] [address] [place] Nucleated RBC/100 WBC (Bld) [Ratio] 0.0 /100 WBC Normal [facility] Comment on above: Order Comment: Speci men Type: BLOOD SPECIMEN Ordering Facility: [facility] Address: [address] [place] [address] Performed By: #### 5 7021-8 #### [facility] CLIA [id number] [address] [place] [address] [place] Platelet mean volume (Bld) [Entitic vol] 9.0 fL Normal 9.0-12.7 [facility] Comment on above: Order Comment: Speci men Type: BLOOD SPECIMEN Ordering Facility: [facility] Address: [address] [place] [address] Performed By: #### 5 7021-8 #### [facility] CLIA [id number] [address] [place] [address] [place] Platelets (Bld) [#/Vol] 321 10*3/uL Normal 150-400 [facility] Comment on above: Order Comment: Speci men Type: BLOOD SPECIMEN Ordering Facility: [facility] Address: [address] [place] [address] Performed By: #### 5 7021-8 #### [facility] CLIA [id number] [address] [place] [address] [place] RBC (Bld) [#/Vol] 3.81 10*6/uL Low 3.90-5.20 [facility] Comment on above: Order Comment: Speci men Type: BLOOD SPECIMEN Ordering Facility: [facility] Address: [address] [place] [address] Performed By: #### 5 7021-8 #### [facility] CLIA [id number] [address] [place] [address] [place] WBC (Bld) [#/Vol] 17.15 10*3/uL High 3.70-11.00 [facility] Comment on above: Order Comment: Speci men Type: BLOOD SPECIMEN Ordering Facility: [facility] Address: [address] [place] [address] Performed By: #### 5 7021-8 #### [facility] CLIA [id number] [address] [place] [address] [place] CK SerPl-cCncon 08-13-2024 CK [Catalytic activity/Vol] 56 U/L Normal 42-196 [facility] Comment on above: Order Comment: Speci men Type: BLOOD SPECIMEN Ordering Facility: [facility] Address: [address] [place] [address] Performed By: #### 2 132-9, 6-4, 17819-3, 2283-8 #### [facility] [facility] CLIA [id number] [address] [place] [address] [place] Comprehensive metabolic 2000 panelon 08-13-2024 Albumin [Mass/Vol] 4.0 g/dL Normal 3.9-4.9 [facility] Comment on above: Order Comment: Speci men Type: BLOOD SPECIMEN Ordering Facility: [facility] Address: [address] [place] [address] Performed By: #### 2 132-9, 6-4, 85781-5, 2283-8 #### [facility] CLIA [id number] [address] [place] [address] [place] ALP [Catalytic activity/Vol] 99 U/L Normal 34-123 [facility] Comment on above: Order Comment: Speci men Type: BLOOD SPECIMEN Ordering Facility: [facility] Address: [address] [place] [address] Performed By: #### 2 132-9, 6-4, 47070-3, 2283-8 #### [facility] CLIA [id number] [address] [place] [address] [place] ALT [Catalytic activity/Vol] 15 U/L Normal 7-38 [facility] Comment on above: Order Comment: Speci men Type: BLOOD SPECIMEN Ordering Facility: [facility] Address: [address] [place] [address] Performed By: #### 2 132-9, 2276-4, 62085-6, 2283-8 #### [facility] CLIA [id number] [address] [place] [address] [place] Anion gap [Moles/Vol] 14 mmol/L Normal 8-15 [facility] Comment on above: Order Comment: Speci men Type: BLOOD SPECIMEN Ordering Facility: [facility] Address: [address] [place] [address] Performed By: #### 2 132-9, 6-4, 21095-7, 8 #### [facility] CLIA [id number] [address] [place] [address] [place] AST [Catalytic activity/Vol] 18 U/L Normal 13-35 [facility] Comment on above: Order Comment: Speci men Type: BLOOD SPECIMEN Ordering Facility: [facility] Address: [address] [place] [address] Performed By: #### 2 132-9, 6-4, 28921-0, 8 #### [facility] CLIA [id number] [address] [place] [address] [place] Bilirubin [Mass/Vol] 0.2 mg/dL Normal 0.2-1.3 [facility] Comment on above: Order Comment: Speci men Type: BLOOD SPECIMEN Ordering Facility: [facility] Address: [address] [place] [address] Performed By: #### 2 132-9, 6-4, 00797-6, 8 #### [facility] CLIA [id number] [address] [place] [address] [place] Calcium [Mass/Vol] 9.2 mg/dL Normal 8.5-10.2 [facility] Comment on above: Order Comment: Speci men Type: BLOOD SPECIMEN Ordering Facility: [facility] Address: [address] [place] [address] Performed By: #### 2 132-9, 6-4, 16846-1, 8 #### [facility] CLIA [id number] [address] [place] [address] [place] Chloride [Moles/Vol] 96 mmol/L Low 98-107 [facility] Comment on above: Order Comment: Speci men Type: BLOOD SPECIMEN Ordering Facility: [facility] Address: [address] [place] [address] Performed By: #### 2 132-9, 6-4, 73839-4, 8 #### [facility] CLIA [id number] [address] [place] [address] [place] CO2 [Moles/Vol] 24 mmol/L Normal 22-30 [facility] Comment on above: Order Comment: Speci men Type: BLOOD SPECIMEN Ordering Facility: [facility] Address: [address] [place] [address] Performed By: #### 2 132-9, 2276-4, 29162-0, 8 #### [facility] CLIA [id number] [address] [place] [address] [place] Creatinine [Mass/Vol] 0.87 mg/dL Normal 0.58-0.96 [facility] Comment on above: Order Comment: Speci men Type: BLOOD SPECIMEN Ordering Facility: [facility] Address: [address] [place] [address] Performed By: #### 2 132-9, 6-4, 40010-1, 8 #### [facility] CLIA [id number] [address] [place] [address] [place] Creatinine and Glomerular filtration rate.predicted panel (S/P/Bld) 64 mL/min/1.73m??? Normal >=60 [facility] Comment on above: Order Comment: Speci men Type: BLOOD SPECIMEN Ordering Facility: [facility] Address: [address] [place] [address] Result Comment: Hilda mated Glomerular Filtration Rate [...] GFR. Performed By: #### 2 132-9, 2276-4, 09770-8, 2283-8 #### [facility] CLIA [id number] [address] [place] [address] [place] Glucose [Mass/Vol] 212 mg/dL High 74-99 [facility] Comment on above: Order Comment: Fan meade Type: BLOOD SPECIMEN Ordering Facility: [facility] Address: [address] [place] [address] Result Comment: The [place] Diabetes Association (ADA) provides guidance for cutoff [...] Standards of Medical Care in Diabetes 2016, [place] [employer]. Diabetes Care. 2016.39(Suppl 1). Performed By: #### 2 132-9, 2276-4, 37748-4, 2283-8 #### [facility] CLIA [id number] [address] [place] [address] [place] Potassium [Moles/Vol] 4.6 mmol/L Normal 3.7-5.1 [facility] Comment on above: Order Comment: Fan meade Type: BLOOD SPECIMEN Ordering Facility: [facility] Address: [address] [place] [address] Performed By: #### 2 132-9, 2276-4, 93695-9, 2283-8 #### [facility] CLIA [id number] [address] [place] [address] [place] Protein [Mass/Vol] 6.5 g/dL Normal 6.3-8.0 [facility] Comment on above: Order Comment: Fan meade Type: BLOOD SPECIMEN Ordering Facility: [facility] Address: [address] [place] [address] Performed By: #### 2 132-9, 2276-4, 71183-3, 2284-8 #### [facility] CLIA [id number] [address] [place] [address] [place] Sodium [Moles/Vol] 134 mmol/L Low 136-144 [facility] Comment on above: Order Comment: Speci men Type: BLOOD SPECIMEN Ordering Facility: [facility] Address: [address] [place] [address] Performed By: #### 2 132-9, 2276-4, 20182-8, 2284-8 #### [facility] CLIA [id number] [address] [place] [address] [place] Urea nitrogen [Mass/Vol] 29 mg/dL High 7-21 [facility] Comment on above: Order Comment: Speci men Type: BLOOD SPECIMEN Ordering Facility: [facility] Address: [address] [place] [address] Performed By: #### 2 132-9, 2276-4, 07949-7, 2284-8 #### [facility] CLIA [id number] [address] [place] [address] [place] ECG COMPLETEon 08-13-2024 ECG COMPLETE Ventricular Rate : 9 7 BPM Atrial Rate : 97 BPM P-R Interval : 174 ms QRS Duration : 78 ms Q-T Interval : 328 ms QTC Calculation(Bazett) : 416 ms Calculated P Manning : 64 degrees Calculated R Manning : 29 degrees Calculated T Manning : 68 degrees SINUS RHYTHM WITH PREMATURE ATRIAL COMPLEXES CANNOT EXCLUDE ANTERIOR MYOCARDIAL INFARCTION , AGE UNDETERMINED ABNORMAL ECG 1402 08/13/2024 Confirmed by DO ROMO ALAN ([id number]), newspaper photo editor CAROLINA MERRITT ([id number]) on 08/14/2024 8:29:13 AM NAME : YUSUF MEDINA PID : [id number] : 1935 Gender : Female Race : ORD : [id number] Procedure Date : Aug 13 2024 14:04:37 Edit Date : Aug 14 2024 08:29:17 Diagnosis: SINUS RHYTHM WITH PREMATURE ATRIAL COMPLEXES CANNOT EXCLUDE ANTERIOR MYOCARDIAL INFARCTION , AGE UNDETERMINED ABNORMAL ECG 1402 08/13/2024 Confirmed by DO ROMO ALAN ([id number]), newspaper photo editor CAROLINA MERRITT ([id number]) on 08/14/2024 8:29:13 AM Test Reason : Chest Pain Location : 215 : [facility] [id number] Overread By : DO ROMO ALAN Edited By : CAROLINA MERRITT Referred By : , Acquired by : Ally MURGUIA [facility] ED NOTEon 08-13-2024 ED NOTE HNO ID: [id number] Author: ELIF SAM, LIT Service: Nursing Author Type: Registered Nurse Type: ED Notes Filed: 08/13/2024 17:42 Note Text: Pt given discharge instructions. Verbalized understanding. Pt taken to daughters car by wheelchair. Normal [facility] ED NOTE HNO ID: [id number] Author: KONSTANTIN FLORES, LIT Service: Nursing Author [...] staff of any changes in condition. Normal [facility] ED PROV NOTEon 08-13-2024 ED PROV NOTE HNO ID: [id number] Author: MARIUSZ ROMO DO Service: Emergency Medicine [...] better. Her daughter is translating. They speak Yemeni. She does not want me to call an additional clinical applications manager. Patient does not have headache. No posterior head or neck pain. No chest pain. No thoracic lumbar back pain. No abdominal pain. No dysuria. No urinary frequency. No diarrhea. No constipation. She really is without complaints. She believes she has been eating fine. Her daughter adds that sometimes when they put her pill urban planner medications together she takes both a.m. [...] - REMV CATARACT EXTRACAP,INSERT LENS Bilateral 2020 [facility] FAMILY HISTORY Problem Relation Age [...] / D (more content not included)... Normal [facility] HIGH SENSITIVITY TROPONIN T (INITIAL)on 08-13-2024 Troponin T.cardiac High sensitivity method [Mass/Vol] 30 ng/L High <12 [facility] Comment on above: Order Comment: Speci men Type: BLOOD SPECIMEN Ordering Facility: [facility] Address: [address] [place] [address] Performed By: #### 2 132-9, 2276-4, 35807-3, 2284-8 #### [facility] CLIA [id number] [address] [place] [address] [place] [address] [place] HIGH SENSITIVITY TROPONIN T (SECOND)on 08-13-2024 Troponin T.cardiac High sensitivity method [Mass/Vol] 29 ng/L High <12 [facility] Comment on above: Order Comment: Speci men Type: BLOOD SPECIMENOrdering Facility: [facility] Address: [address] [place] [address] Performed By: #### L [id number] ####[facility]ORYCLIA [id number] [place] [address] [place] PT panel Coag (PPP)on 2023 INR Coag (PPP) [Relative time] 1.0 {INR} Normal 0.9-1.3 [facility] Comment on above: Order Comment: Speci men Type: BLOOD SPECIMENOrdering Facility: [facility] Address: [address] [place] [address] Result Comment: Kendra min K Antagonist (VKA) Therapeutic Range: INR 2 to 3 (Target INR of 2.5) Note: For patients treated with VKA drugs, such as warfarin, the [place] [employer] 2012 Guideline recommends [...] GH, et al. Chest 2012, 141:7S-47S John RA et al. [facility] 2017, 70: 252-289 Performed By: #### 3 4528-0 ####[facility]ATORYCLIA [id number] [place] [address] [place] PT Coag (PPP) [Time] 10.6 s Normal 9.7-13.0 [facility] Comment on above: Order Comment: Speci men Type: BLOOD SPECIMENOrdering Facility: [facility] Address: [address] [place] [address] Performed By: #### 3 4528-0 ####[facility]ORYCLIA [id number] [place] [address] [place] Urinalysis complete panel (U )on 08-13-2024 Bilirubin Ql (U) Negative Normal Negative [facility] Comment on above: Order Comment: Speci men Type: BLOOD SPECIMEN Ordering Facility: [facility] Address: [address] [place] [address] Performed By: #### 2 132-9, 6-4, 54511-8, 8 #### [facility] CLIA [id number] [address] [place] [address] [place] Clarity (Unsp spec) Clear Normal Clear [facility] Comment on above: Order Comment: Speci men Type: BLOOD SPECIMEN Ordering Facility: [facility] Address: [address] [place] [address] Performed By: #### 2 132-9, 6-4, 88340-5, 2283-8 #### [facility] CLIA [id number] [address] [place] [address] [place] Color (U) Yellow Normal yellow [facility] Comment on above: Order Comment: Speci men Type: BLOOD SPECIMEN Ordering Facility: [facility] Address: [address] [place] [address] Performed By: #### 2 132-9, 6-4, 77477-8, 8 #### [facility] CLIA [id number] [address] [place] [address] [place] Epithelial cells LM.HPF (Urine sed) [#/Area] Few Normal [facility] Comment on above: Order Comment: Speci men Type: BLOOD SPECIMEN Ordering Facility: [facility] Address: [address] [place] [address] Result Comment: Few Performed By: #### 2 132-9, 2276-4, 32099-0, 2283-8 #### [facility] CLIA [id number] [address] [place] [address] [place] Glucose Test strip (U) [Mass/Vol] Negative Normal Trace, Negative [facility] Comment on above: Order Comment: Speci men Type: BLOOD SPECIMEN Ordering Facility: [facility] Address: [address] [place] [address] Performed By: #### 2 132-9, 2276-4, 41854-5, 2283-8 #### [facility] CLIA [id number] [address] [place] [address] [place] Hemoglobin Ql (U) Trace Normal Negative, Trace [facility] Comment on above: Order Comment: Speci men Type: BLOOD SPECIMEN Ordering Facility: [facility] Address: [address] [place] [address] Performed By: #### 2 132-9, 6-4, 38854-9, 2283-8 #### [facility] CLIA [id number] [address] [place] [address] [place] Ketones Ql (U) Negative Normal Negative, Trace [facility] Comment on above: Order Comment: Speci men Type: BLOOD SPECIMEN Ordering Facility: [facility] Address: [address] [place] [address] Performed By: #### 2 132-9, 2276-4, 97811-8, 2283-8 #### [facility] CLIA [id number] [address] [place] [address] [place] Leukocyte esterase Test strip Ql (U) Negative Normal Negative, 25 Vani/uL [facility] Comment on above: Order Comment: Speci men Type: BLOOD SPECIMEN Ordering Facility: [facility] Address: [address] [place] [address] Performed By: #### 2 132-9, 2276-4, 44559-4, 2284-8 #### [facility] CLIA [id number] [address] [place] [address] [place] Nitrite Ql (U) Negative Normal Negative [facility] Comment on above: Order Comment: Speci men Type: BLOOD SPECIMEN Ordering Facility: [facility] Address: [address] [place] [address] Performed By: #### 2 132-9, 2276-4, 45068-0, 2283-8 #### [facility] CLIA [id number] [address] [place] [address] [place] pH (U) 6.0 [pH] Normal 5.0-8.0 [facility] Comment on above: Order Comment: Speci men Type: BLOOD SPECIMEN Ordering Facility: [facility] Address: [address] [place] [address] Performed By: #### 2 132-9, 6-4, 61399-5, 2283-8 #### [facility] CLIA [id number] [address] [place] [address] [place] Protein (U) [Mass/Vol] 1+ Abnormal Trace , Negative [facility] Comment on above: Order Comment: Speci men Type: BLOOD SPECIMEN Ordering Facility: [facility] Address: [address] [place] [address] Performed By: #### 2 132-9, 2276-4, 90104-3, 2283-8 #### [facility] CLIA [id number] [address] [place] [address] [place] RBC LM.HPF (Urine sed) [#/Area] 3-5 /HPF Abnormal 0-3 /HPF [facility] Comment on above: Order Comment: Speci men Type: BLOOD SPECIMEN Ordering Facility: [facility] Address: [address] [place] [address] Performed By: #### 2 132-9, 2276-4, 04362-5, 2284-8 #### [facility] CLIA [id number] [address] [place], [place] [address] [place] Specific gravity (U) [Rel density] 1.021 Normal 1.005-1.030 [facility] Comment on above: Order Comment: Speci men Type: BLOOD SPECIMEN Ordering Facility: [facility] Address: [address] [place] [address] Performed By: #### 2 132-9, 2276-4, 86668-9, 2284-8 #### [facility] CLIA [id number] [address] [place] [address] [place] Urobilinogen Ql (U) Normal Normal Normal [facility] Comment on above: Order Comment: Speci men Type: BLOOD SPECIMEN Ordering Facility: [facility] Address: [address] [place] [address] Performed By: #### 2 132-9, 2276-4, 35758-2, 2284-8 #### [facility] CLIA [id number] [address] [place] [address] [place] WBC LM.HPF (Urine sed) [#/Area] 0-5 /HPF Normal 0-5 /HPF [facility] Comment on above: Order Comment: Speci men Type: BLOOD SPECIMEN Ordering Facility: [facility] Address: [address] [place] [address] Performed By: #### 2 132-9, 2276-4, 32131-0, 2284-8 #### [facility] CLIA [id number] [address] [place], [place] [address] [place] XR CHEST 1V [...] of bilateral shoulders IMPRESSION: Bilateral basilar atelectasis Electronic Equipment Installer: HPU Transcribe Date/Time: Aug 13 2024 4:03P Dictated by : GILLIAN ELLIOTT MD This examination was interpreted and the report reviewed and electronically signed by: GILLIAN ELLIOTT MD on Aug 13 2024 4:04PM EST [id number] Normal [facility] CNOVon 07-12-2024 CNOV Office Visit ([facility] ) YUSUF MEDINA ([id number]) 1935 F [place]ERT[place] Date Time Provider Department 07/12/24 9:40 AM MIGDALIA CRAMER [facility] During your visit today, we recorded the following information about you: Pulse Blood pressure Weight 80/minute 142/70 49.3 kg Migdalia Cramer MD 07/12/2024 2:26 PM Signed SUBJECTIVE: Yusfu Medina is a 88 year old female [...] [D50.9] Order(s):BASIC METABOLIC PANEL [SQBMP] Order #: [id number] FUTURE HEMOGLOBIN A1C [INYYT3J] Order #: [id number] FUTURE ALBUMIN/CREATININE RATIO, URINE [SQUACR] Order #: [id number] FUTURE COMPLETE BLOOD COUNT [SQCBC] Order #: [id number] FUTURE THYROID STIMULATING HORMONE [SQTSH] Order #: [id number] FUTURE Prescriptions as of 07/12/2024 - pioglitazone [...] diclofenac (VOLTARE (more content not included)... Normal [facility] Basic metabolic 2000 panelon 07-11-2024 Anion gap [Moles/Vol] 14 mmol/L Normal 8-15 [facility] Comment on above: Order Comment: Speci men Type: BLOOD SPECIMENOrdering Facility: [facility] Address: [address] [place] [address] Performed By: #### 2 4321-2 ####[facility] LABCLIA [id number] [place] [address] [place] Calcium [Mass/Vol] 9.9 mg/dL Normal 8.5-10.2 [facility] Comment on above: Order Comment: Speci men Type: BLOOD SPECIMENOrdering Facility: [facility] Address: [address] [place] [address] Performed By: #### 2 4321-2 ####[facility] LABCLIA [id number] [place] [address] [place] Chloride [Moles/Vol] 101 mmol/L Normal 98-107 [facility] Comment on above: Order Comment: Speci men Type: BLOOD SPECIMENOrdering Facility: [facility] Address: [address] [place] [address] Performed By: #### 2 4321-2 ####[facility] LABCLIA [id number] [place] [address] [place] CO2 [Moles/Vol] 20 mmol/L Low 22-30 [facility] Comment on above: Order Comment: Speci men Type: BLOOD SPECIMENOrdering Facility: [facility] Address: [address] [place] [address] Performed By: #### 2 4321-2 ####[facility] LABCLIA [id number] [place] [address] [place] Creatinine [Mass/Vol] 0.93 mg/dL Normal 0.58-0.96 [facility] Comment on above: Order Comment: Fan meade Type: BLOOD SPECIMENOrdering Facility: [facility] Address: [address] [place] [address] Performed By: #### 2 4321-2 ####[facility] LABCLIA [id number] [place] [address] [place] Creatinine and Glomerular filtration rate.predicted panel (S/P/Bld) 59 mL/min/1.73m??? Low >=60 [facility] Comment on above: Order Comment: Specleroy meade Type: BLOOD SPECIMENOrdering Facility: [facility] Address: [address] [place] [address] Result Comment: Hilda mated Glomerular Filtration Rate [...] GFR. Performed By: #### 2 4321-2 ####[facility] LABCLIA [id number] [place] [address] [place] Glucose [Mass/Vol] 244 mg/dL High 74-99 [facility] Comment on above: Order Comment: Fan meade Type: BLOOD SPECIMENOrdering Facility: [facility] Address: [address] [place] [address] Result Comment: The [place] Diabetes [employer] (ADA) provides guidance for cutoff [...] Standards of Medical Care in Diabetes 2016, [place] [employer]. Diabetes Care. 2016.39(Suppl 1). Performed By: #### 2 4321-2 ####[facility] LABCLIA [id number] [place] [id number] [place] Potassium [Moles/Vol] 5.2 mmol/L High 3.7-5.1 [facility] Comment on above: Order Comment: Speci men Type: BLOOD SPECIMENOrdering Facility: [facility] Address: [address] [place] [address] Performed By: #### 2 4321-2 ####[facility] LABCLIA [id number] [place] [address] [place] Sodium [Moles/Vol] 135 mmol/L Low 136-144 [facility] Comment on above: Order Comment: Speci men Type: BLOOD SPECIMENOrdering Facility: [facility] Address: [address] [place] [address] Performed By: #### 2 4321-2 ####[facility] LABCLIA [id number] [place] [address] [place] Urea nitrogen [Mass/Vol] 30 mg/dL High 7-21 [facility] Comment on above: Order Comment: Speci men Type: BLOOD SPECIMENOrdering Facility: [facility] Address: [address] [place] [address] Performed By: #### 2 4321-2 ####[facility] LABCLIA [id number] [place] [address] [place] HbA1c (Bld)on 07-11-2024 Average glucose Estimated from glycated hemoglobin (Bld) [Mass/Vol] 189 mg/dL Normal [facility] Comment on above: Order Comment: Speci men Type: BLOOD SPECIMENOrdering Facility: [facility] Address: [address] [place] [address] Result Comment: eAG: (Estimated average glucose) is a calculated value from HgbA1c and is membership sales representative of the average blood glucose level in the last 2-3 month period. Performed By: #### 5 5454-3 ####[facility] LAB[facility] [id number] [place] [address] [place] HbA1c (Bld) [Mass fraction] 8.2 % High 4.3-5.6 [facility] Comment on above: Order Comment: Fan meade Type: BLOOD SPECIMENOrdering Facility: [facility] Address: [address] [place] [address] Result Comment: Amer ican Diabetes Association guidelines indicate that patients with HgbA1c in the range 5.7-6.4% are at increased risk for development of diabetes, and intervention by lifestyle modification may be beneficial. HgbA1c greater or equal to 6.5% is considered diagnostic of diabetes. Performed By: #### 5 5454-3 ####[facility] [id number] [place] [address] [place] LIPID PANEL, NONFASTINGon Cholesterol [Mass/Vol] 151 mg/dL Normal <200 [facility] Comment on above: Order Comment: Fan meade Type: BLOOD SPECIMEN Ordering Facility: [facility] Address: [address] [place] [address] Result Comment: <200 mg/dL, Desirable 200-239 mg/dL, Borderline high >239 mg/dL, High Performed By: #### 5 7021-8 #### [facility] CLIA [id number] [address] [place] [address] [place] HDL CHOLESTEROL, NF 59 mg/dL Normal >39 [facility] Comment on above: Order Comment: Fan meade Type: BLOOD SPECIMEN Ordering Facility: [facility] Address: [address] [place] [address] Result Comment: 40-5 9 mg/dL, Acceptable >59 mg/dL, High: Negative risk factor for coronary heart disease <40 mg/dL, Low: Positive risk factor for coronary heart disease Performed By: #### 5 7021-8 #### [facility] CLIA [id number] [facility] [place] [address] [place] LDL CHOLESTEROL, NF 71 mg/dL Normal <100 [facility] Comment on above: Order Comment: Fan meade Type: BLOOD SPECIMEN Ordering Facility: [facility] Address: [address] [place] [address] Result Comment: <100 mg/dL, Optimal 100-129 mg/dL, Near optimal/above optimal 130-159 mg/dL, Borderline high 160-189 mg/dL, High >189 mg/dL, Very high Secondary prevention optimal LDL Cholesterol levels are recommended to be < 70 mg/dL Performed By: #### 5 7021-8 #### [facility] CLIA [id number] [address] [place] [address] LDL/HDL RATIO, NF 1.20 mg/dL Normal <2.54 [facility] Comment on above: Order Comment: Fan meade Type: BLOOD SPECIMEN Ordering Facility: [facility] Address: [address] [place] [address] Result Comment: Refe rence: 1. National Cholesterol Education Program ATP III Guideline At-A-Glance Quick Desk Reference: National Heart, Lung, and Blood Coolin. National Institutes of Health. 2001: NIH Publication No. 01-3305. 2. An International Atherosclerosis Society position paper: global recommendations for the management of dyslipidemia: executive summary, Atherosclerosis. 2014: 232(2):410-413. Performed By: #### 5 7021-8 #### [facility] CLIA [id number] [address] [place] [address] NON HDL CHOL, NF 92 mg/dL Normal <130 [facility] Comment on above: Order Comment: Fan meade Type: BLOOD SPECIMEN Ordering Facility: [facility] Address: [address] [place] [address] Result Comment: <130 mg/dL, Optimal 130-159 mg/dL, Near optimal/above optimal 160-189 mg/dL, Borderline high 190-219 mg/dL, High >219 mg/dL, Very high Secondary prevention optimal non HDL Cholesterol levels are recommended to be <100 mg/dL Performed By: #### 5 7021-8 #### [facility] CLIA [id number] [address] [place] [address] [place] T CHOL/HDL RATIO NF 2.56 mg/dL Normal <5.10 [facility] Comment on above: Order Comment: Fan meade Type: BLOOD SPECIMEN Ordering Facility: [facility] Address: [address] [place] [address] Performed By: #### 5 7021-8 #### [facility] CLIA [id number] [address] [place] [address] [facility] TRIGLY[facility], NF 107 mg/dL Normal <150 [facility] Comment on above: Order Comment: Fan meade Type: BLOOD SPECIMEN Ordering Facility: [facility] Address: [address] [place] [address] Result Comment: <150 mg/dL, Normal 150-199 mg/dL, Borderline high 200-499 mg/dL, High >499 mg/dL, Very high Performed By: #### 5 7021-8 #### [facility] CLIA [id number] [address] [place] [address] [place] VLDL CHOLESTEROL, NF 21 mg/dL Normal <30 [facility] Comment on above: Order Comment: Fan meade Type: BLOOD SPECIMEN Ordering Facility: [facility] Address: [address] [place] [address] Performed By: #### 5 7021-8 #### [facility] CLIA [id number] [address] [place] [address] [place] Home Health Progress Noteon 12-09-2021 Home Health Progress Note Follow up call placed to patient regarding HHC. Spoke with Yusuf regarding services. Patient states no services needed and hung up on caller. Will cancel referral to [facility]. Normal [facility] BASICMETAon 12-07-2021 GFR AA 45 Normal [facility] Comment on above: Result Comment: Afri can [place] GFR Calc Medical judgement is necessary to [...] for drug dosing. Performed By: #### C D:[id number], 6006355, 507041, 194495, 336676, 485408 #### [facility] [address] [place] [address] Biller: Robert Ybarra MD Glomerular Filtration Rate 37 mL/min/1.73m? Normal [facility] Comment on above: Result Comment: [...] for drug dosing. Performed By: #### C D:[id number], 5538617, 510652, 177494, 581788, 639241 #### [facility] [address] [place] [address] Biller: Robert Ybarra MD Osmolality [Osmolality] 287 mosm/kg Normal 275-295 [facility] Comment on above: Performed By: #### C D:[id number], 4117577, 530189, 441849, 383977, 664987 #### [facility] [address] [place] [address] Biller: Robert Ybarra MD Urea nitrogen/Creatinine [Mass ratio] 19.1 mg/mg Normal [facility] Comment on above: Performed By: #### C D:[id number], 1065927, 976732, 441918, 998714, 682167 #### [facility] [address] [place] [address] Biller: Robert Ybarra MD Calcium [Mass/Vol] 9.7 mg/dL Normal 8.5-10.5 [facility] Comment on above: Performed By: #### C D:[id number], 1890424, 200870, 259850, 701709, 925247 #### [facility] [address] [place] [address] Biller: Robert Ybarra MD Chloride [Moles/Vol] 107 mmol/L Normal 100-109 [facility] Comment on above: Performed By: #### C D:[id number], 2012416, 685415, 937647, 292281, 590085 #### [facility] [address] [place] [address] Biller: Robert Ybarra MD CO2 [Moles/Vol] 25.9 mmol/L Normal 21.0-32.0 [facility] Comment on above: Performed By: #### C D:[id number], 2784267, 735625, 009261, 141236, 556803 #### [facility] [address] [place] [address] Biller: Robert Ybarra MD Creatinine [Mass/Vol] 1.4 mg/dL High 0.6-1.0 [facility] Comment on above: Performed By: #### C D:[id number], 4099396, 040494, 929218, 530417, 005251 #### [facility] [address] [place] [address] Biller: Robert Ybarra MD Glucose [Mass/Vol] 177 mg/dL High 72-100 [facility] Comment on above: Result Comment: Shireen puncture should occur prior to sulfasalazine administration due to the potential for falsely depressed results. Venipuncture should occur prior to sulfapyridine administration due to the potential falsely elevated results. Baseline assay values before administration of sulfasalazine and sulfapyridine therapy would not be affected. Performed By: #### C D:[id number], 2702398, 838084, 617764, 583259, 201028 #### [facility] [address] [place], [place] [address] Biller: Robert Ybarra MD Potassium [Moles/Vol] 4.7 mmol/L Normal 3.5-5.1 [facility] Comment on above: Performed By: #### C D:[id number], 6110564, 623046, 553226, 682971, 387653 #### [facility] [address] [place] [address] Biller: Robert Ybarra MD Sodium [Moles/Vol] 139 mmol/L Normal 135-145 [facility] Comment on above: Performed By: #### C D:[id number], 1981811, 107858, 587330, 268411, 477405 #### [facility] [address] [place] [address] Biller: Robert Ybarra MD Urea nitrogen [Mass/Vol] 26 mg/dL High 10-20 [facility] Comment on above: Performed By: #### C D:[id number], 0099730, 314204, 523417, 188410, 711112 #### [facility] [address] [place] [address] Biller: Robert Ybarra MD CPKon 12-07-2021 CPK 1185 unit/L Critically abnormal 26-192 [facility] Comment on above: Result Comment: Crit ical Result(s) called at: 13:24:37 on 12/07/2021 by: MIRNA rechecked, RBR to: Dr. Beckford Performed By: #### C D:[id number], 4425529, 340859, 249666, 331130, 464025 #### [facility] [address] [place] [address] Biller: Robert Ybarra MD Utilization Review Noteon Utilization Review Note Inpatient recomm ended. Inpatient ordered. Patient with #1 acute hypothermia. YUSUF MEDINA 12/03/21 [id number] CCE 200 INPT UPDATED [facility]ER TO [facility] Verified admit thru the portal [id number] PATIENT ALREADY DISCHARGED AT THE TIME OF THIS REVIEW. Faxed Normal [facility] Discharge Educationon 2021 Discharge Education Patient Education Material Normal [facility] Inpatient Patient Summaryon 12-05-2021 Inpatient Patient Summary [facility] Discharge Instructions [address] [place] [address] \.br\(Patient Copy)\.br\ \.br\ \.br\Name: YUSUF MEDINA : 1935 \.br\Diagnosis: Abrasion of right elbow; Benign essential hypertension; Chronic kidney disease (CKD), stage III (moderate); Contusion of right thigh; Diabetes mellitus type II, controlled; acute Hypothermia \.br\ \.br\Allergies: No Known Allergies\.br\ \.br\Registration Date: 12/03/21\.br\\.br\\.br \ \.br\ Current Date Time: 12/05/2021 07:42:18 \.br\ \.br\Address: [address] [place] [address] \.br\ \.br\ \.br\Primary Care Provider: \.br\Name: RADHA CRAMER\.br\ \.br\ \.br\Thank you for choosing [facility] for your care. You are very important to us. Our goal is to demonstrate our high quality medical care and provide you with a very good patient experience.\.br\ You may receive a survey about our service. Please take the time to complete the survey and return it so we can continue to enhance our service.\.br\ Thank you again for allowing [facility] to care for your medical needs. [...] in more information on smoking cessation, contact [facility]?s Tobacco Cessation [facility] [phone]\.br\ \.br\ DIET Eat a variety of nutritious [...] Connection / Physician Referral and Health Information [phone].\.br\Hear t and Vascular Coolin 2-812-LAN-BEAT ( )\.br\S easons of a Woman?s Life [phone] \.br\ \.br\ Call immediately if you or [...] discomfort: M (more content not included)... Normal [facility] AUTO DIFFon 12-04-2021 Baso Count 0.05 x1000 Normal 0.00-0.20 [facility] Comment on above: Performed By: #### 1 , 694684, 012913, 3115119 ####[facility] [address] [place] [address] Medical Director: Robert Ybarra MD Basos % 0.5 % Normal [facility] Comment on above: Performed By: #### 1 , 732886, 415206, 2571474 ####[facility] [address] [place] [address] Medical Director: Robert Ybarra MD Eos Count 0.01 x1000 Normal 0.00-0.50 [facility] Comment on above: Performed By: #### 1 , 814609, 640913, 3077444 ####[facility] [address] [place] [address] Medical Director: Robert Ybarra MD Eosinophils/100 WBC (Bld) 0.1 % Normal [facility] Comment on above: Performed By: #### 1 , 743692, 269644, 4390948 ####[facility] [address] [place] [address] Medical Director: Robert Ybarra MD Lymph Count 1.19 x1000 Low 1.20-4.80 [facility] Comment on above: Performed By: #### 1 , 441183, 922527, 8294481 ####[facility] [address] [place] [address] Medical Director: Robert Ybarra MD Lymphocytes/100 WBC (Bld) 11.8 % Normal [facility] Comment on above: Performed By: #### 1 , 115734, 219490, 6396834 ####[facility] [address] [place] [address] Medical Director: Robert Ybarra MD Towner Count 0.57 x1000 Normal 0.10-1.00 [facility] Comment on above: Performed By: #### 1 , 736398, 073512, 2518846 ####[facility] [address] [place] [address] Medical Director: Robert Ybarra MD Monocytes/100 WBC (Bld) 5.6 % Normal [facility] Comment on above: Performed By: #### 1 , 020247, 325112, 4557974 ####[facility] [address] [place] [address] Medical Director: Robert Ybarra MD Neutrophil Count (ANC) 8.28 x1000 Normal 1.40-8.80 [facility] Comment on above: Performed By: #### 1 , 372994, 312343, 5363406 ####[facility] [address] [place] [address] Medical Director: Robert Ybarra MD Neutrophils/100 WBC (Bld) 82.0 % Normal [facility] Comment on above: Performed By: #### 1 , 680764, 140394, 6065312 ####[facility] [address] [place] [address] Medical Director: Robert Ybarra MD B12 FOLATEon 12-04-2021 Cobalamin (Vitamin B12) [Mass/Vol] 455 pg/mL Normal 193-986 [facility] Comment on above: Performed By: #### 1 , 582069, 871538, 5211002 ####[facility] [address] [place] [address] Medical Director: Robert Ybarra MD FOLATE 14.3 ng/mL Normal 3.1-17.5 [facility] Comment on above: Performed By: #### 1 65973, 978648, 138251, 4403058 ####[facility] [address] [place] [address] Medical Director: Robert Ybarra MD BLD GASon 12-04-2021 MAGGIE TEST Normal [facility] Comment on above: Performed By: #### C D:[id number], 4112860, 619975, 049516, 121867, 109544 #### [facility] [address] [place] [address] Biller: Robert Ybarra MD Base Excess -5.0 mmol/L Normal [facility] Comment on above: Performed By: #### C D:063426400, 3795477, 574394, 830455, 810333, 412379 #### [facility] [address] [place] [address] Biller: Robert Ybarra MD ePAP 0 cmH20 [facility] Comment on above: Performed By: #### C D:752083469, 0715493, 401595, 499676, 287044, 305412 #### [facility] [address] [place] [address] Biller: Robert Ybarra MD FIO2 36 % Normal [facility] Comment on above: Performed By: #### C D:351679356, 5778815, 483445, 294252, 108914, 246873 #### [facility] [address] [place] [address] Biller: Robert Ybarra MD HCO3 (Bld) [Moles/Vol] 19.8 mmol/L Low 22.0-26.0 [facility] Comment on above: Performed By: #### C D:225500807, 4463211, 603908, 026620, 145848, 555448 #### [facility] [address] [place] [address] Biller: Robert Ybarra MD iPAP 0 cmH20 [facility] Comment on above: Performed By: #### C D:226042597, 9595727, 013430, 066778, 780832, 786139 #### [facility] [address] [place] [address] Biller: Robert Ybarra MD O2 L/M 4.0 Normal [facility] Comment on above: Performed By: #### C D:387500187, 0742349, 826740, 859813, 258199, 860403 #### [facility] [address] [place] [address] Biller: Robert Ybarra MD Oxygen (Bld) [Partial pressure] 82.0 mm[Hg] Normal 80.0-100.0 [facility] Comment on above: Performed By: #### C D:831760707, 8226078, 785764, 533242, 966775, 483158 #### [facility] [address] [place] [address] Biller: Robert Ybarra MD Oxygen saturation in Blood 94.1 % Normal [facility] Comment on above: Performed By: #### C D:861787055, 4528214, 818737, 783404, 382301, 361420 #### [facility] [address] [place] [address] Biller: Robert Ybarra MD PCO2 35.6 mmHg Normal 35.0-45.0 [facility] Comment on above: Performed By: #### C D:149721920, 3830909, 432289, 589046, 977918, 661560 #### [facility] [address] [place] [address] Biller: Robert Ybarra MD PEEP 0.0 cmH20 Normal [facility] Comment on above: Performed By: #### C D:774381654, 5160124, 680254, 691339, 611090, 918393 #### [facility] [address] [place] [address] Biller: Robert Ybarra MD pH (Bld) 7.363 [pH] Normal 7.350-7.450 [facility] Comment on above: Performed By: #### C D:248040667, 5374112, 556831, 111646, 919371, 531339 #### [facility] [address] [place] [address] Biller: Robert Ybarra MD PO2/FiO2 Ratio 228 Low 300-500 [facility] Comment on above: Performed By: #### C D:631245486, 3140906, 760114, 538378, 737464, 877938 #### [facility] [address] [place] [address] Biller: Robert Ybarra MD Pressure Support. 0 cmH20 Normal [facility] Comment on above: Performed By: #### C D:100362818, 4974414, 829431, 839398, 735838, 818092 #### [facility] [address] [place] [address] Biller: Robert Ybarra MD RATE 0 bpm Normal [facility] Comment on above: Performed By: #### C D:071246549, 0487277, 700432, 266009, 023726, 854617 #### [facility] [address] [place] [address] Biller: Robert Ybarra MD TEMP 37.0 degC Normal <=37.0 [facility] Comment on above: Performed By: #### C D:904311932, 3310432, 788934, 382736, 258296, 457726 #### [facility] [address] [place] [address] Biller: Robert Ybarra MD Type of Specimen RB Art Normal [facility] Comment on above: Result Comment: RR A RT = Right Artery RB ART = Right Brachial Artery LR ART = Left Radial Artery LB ART = Left Brachial Artery RF ART = Right Femoral Artery LF ART = Left Femoral Artery Performed By: #### C D:792656731, 4310017, 719535, 927637, 410256, 702549 #### [facility] [address] [place], [place] [address] Biller: Robert Ybarra MD Ventilation Nasalcan [facility] Comment on above: Performed By: #### C D:565312469, 1623097, 966059, 020674, 478097, 492359 #### [facility] [address] [place], [place] [address] Biller: Robert Ybarra MD VT 00 mL [facility] Comment on above: Performed By: #### C D:225458579, 1495477, 284325, 113153, 788971, 698018 #### [facility] [address] [place], [place] [address] Biller: Robert Ybarra MD CBCNDon 12-04-2021 Erythrocyte distribution width (RBC) [Ratio] 14.2 % Normal 11.5-14.5 [facility] Comment on above: Performed By: #### C D:759502133, 1791843, 181550, 797732, 480189, 086461 #### [facility] [address] [place] [address] Biller: Robert Ybarra MD Hematocrit (Bld) [Volume fraction] 30.1 % Low 36.0-46.0 [facility] Comment on above: Performed By: #### C D:367488266, 5345534, 048937, 664039, 352497, 966607 #### [facility] [address] [place], [place] [address] Biller: Robert Ybarra MD Hemoglobin (Bld) [Mass/Vol] 10.1 g/dL Low 12.0-16.0 [facility] Comment on above: Performed By: #### C D:900728736, 3783064, 109980, 524940, 295392, 621592 #### [facility] [address] [place], [place] [address] Biller: Robert Ybarra MD Instr WBC ND 13.8 Normal [facility] Comment on above: Performed By: #### C D:354422191, 4516319, 416694, 745453, 216520, 164312 #### [facility] [address] [place] [address] Biller: Robert Ybarra MD MCH (RBC) [Entitic mass] 29.8 pg Normal 27.0-34.0 [facility] Comment on above: Performed By: #### C D:612919735, 1155002, 959587, 641663, 184862, 795151 #### [facility] [address] [place], [place] [address] Biller: Robert Ybarra MD MCHC (RBC) [Mass/Vol] 33.6 g/dL Normal 32.0-37.0 [facility] Comment on above: Performed By: #### C D:852611433, 7319430, 341927, 638002, 646293, 804666 #### [facility] [address] [place] [address] Biller: Robert Ybarra MD MCV (RBC) [Entitic vol] 88.9 fL Normal 80.0-100.0 [facility] Comment on above: Performed By: #### C D:640582605, 9722909, 938597, 221390, 380739, 344651 #### [facility] [address] [place] [address] Biller: Robert Ybarra MD Platelet 294 x1000 Normal 150-450 [facility] Comment on above: Performed By: #### C D:320231581, 8266126, 129468, 433346, 284198, 337986 #### [facility] [address] [place] [address] Biller: Robert Ybarra MD Platelet mean volume (Bld) [Entitic vol] 6.9 fL Low 7.4-10.4 [facility] Comment on above: Performed By: #### C D:850300158, 1378042, 119019, 605440, 386974, 063601 #### [facility] [address] [place] [address] Biller: Robert Ybarra MD RBC 3.38 x10 Low 4.20-5.40 [facility] Comment on above: Result Comment: Note : RBC morphology is normal unless otherwise stated. Evaluation performed only if differential is requested. Performed By: #### C D:866894116, 2268586, 152270, 073598, 308544, 883665 #### [facility] [address] [place] [address] Biller: Robert Ybarra MD WBC 13.8 x10 High 4.5-11.0 [facility] Comment on above: Performed By: #### C D:280727102, 1888448, 356619, 531172, 290807, 068915 #### [facility] [address] [place] [address] Biller: Robert Ybarra MD COMPMETAon 12-04-2021 Albumin [Mass/Vol] 2.9 g/dL Low 3.4-5.0 [facility] Comment on above: Performed By: #### C D:442177254, 3028353, 998382, 371484, 178331, 924542 #### [facility] [address] [place] [address] Biller: Robert Ybarra MD Albumin/Globulin [Mass ratio] 1.2 {ratio} Normal [facility] Comment on above: Performed By: #### C D:623621571, 3736165, 542461, 825397, 167209, 187751 #### [facility] [facility] [address] [place] [address] Biller: Robert Ybarra MD Alk Phos 58 unit/L Normal 45-117 [facility] Comment on above: Performed By: #### C D:[id number], [id number], 012148, 862061, 597748, 457184 #### [facility] [address] [place] [address] Biller: Robert Ybarra MD Bilirubin [Mass/Vol] 0.25 mg/dL Normal 0.20-1.00 [facility] Comment on above: Result Comment: Use of this assay is not recommended for patients undergoing treatment with eltrombopag due to the potential for falsely elevated results. Performed By: #### C D:[id number], 5887384, 634254, 295003, 707303, 428876 #### [facility] [address] [place] [address] Biller: Robert Ybarra MD Calcium [Mass/Vol] 8.5 mg/dL Normal 8.5-10.5 [facility] Comment on above: Performed By: #### C D:[id number], 5898404, 478373, 944505, 638367, 209770 #### [facility] [address] [place] [address] Biller: Robert Ybarra MD Chloride [Moles/Vol] 106 mmol/L Normal 100-109 [facility] Comment on above: Performed By: #### C D:[id number], 4279197, 366924, 973918, 320920, 002788 #### [facility] [address] [place] [address] Biller: Robert Ybarra MD CO2 [Moles/Vol] 22.7 mmol/L Normal 21.0-32.0 [facility] Comment on above: Performed By: #### C D:[id number], 3882720, 255728, 460506, 320541, 220961 #### [facility] [address] [place] [address] Biller: Robert Ybarra MD Creatinine [Mass/Vol] 1.3 mg/dL High 0.6-1.0 [facility] Comment on above: Performed By: #### C D:[id number], 8360607, 193694, 496499, 800195, 793583 #### [facility] [address] [place] [address] Biller: Robert Ybarra MD GFR AA 46 Normal [facility] Comment on above: Result Comment: Afri can Burundian GFR Calc Medical judgement is necessary to [...] for drug dosing. Performed By: #### C D:[id number], 3046400, 643803, 069574, 861625, 966186 #### [facility] [address] [place] [address] Biller: Robert Ybarra MD Globulin (S) [Mass/Vol] 2.4 g/dL Normal S [facility] Comment on above: Performed By: #### C D:[id number], 4270825, 759018, 743127, 184290, 134342 #### [facility] [address] [place] [address] Biller: Robert Ybarra MD Glomerular Filtration Rate 38 mL/min/1.73m? Normal [facility] Comment on above: Result Comment: [...] for drug dosing. Performed By: #### C D:[id number], 1842846, 102819, 701856, 730183, 895681 #### [facility] [address] [place] [address] Biller: Robert Ybarra MD Glucose [Mass/Vol] 186 mg/dL High 72-100 [facility] Comment on above: Result Comment: Shireen puncture should occur prior to sulfasalazine administration due to the potential for falsely depressed results. Venipuncture should occur prior to sulfapyridine administration due to the potential falsely elevated results. Baseline assay values before administration of sulfasalazine and sulfapyridine therapy would not be affected. Performed By: #### C D:[id number], 1930486, 532858, 344687, 843016, 958938 #### [facility] [address] [place] [address] Biller: Robert Ybarra MD GOT 123 unit/L High 15-37 [facility] Comment on above: Result Comment: revi ewed Venipuncture should occur prior to sulfasalazine and/or sulfapyridine administration due to the potential for falsely depressed results. Baseline assay values before administration of sulfasalazine and sulfapyridine therapy would not be affected. Performed By: #### C D:[id number], 3064110, 934056, 531515, 003330, 410442 #### [facility] [address] [place] [address] Biller: Robert Ybarra MD GPT 92 unit/L High 13-56 [facility] Comment on above: Result Comment: revi ewed Venipuncture should occur prior to sulfasalazine and/or sulfapyridine administration due to the potential for falsely depressed results. Baseline assay values before administration of sulfasalazine and sulfapyridine therapy would not be affected. Performed By: #### C D:[id number], 9068211, 619028, 182292, 134396, 101065 #### [facility] [address] [place] [address] Biller: Robert Ybarra MD Osmolality [Osmolality] 289 mosm/kg Normal 275-295 [facility] Comment on above: Performed By: #### C D:[id number], 1266109, 539004, 970850, 091618, 070739 #### [facility] [address] [place] [address] Biller: Robert Ybarra MD Potassium [Moles/Vol] 4.3 mmol/L Normal 3.5-5.1 [facility] Comment on above: Performed By: #### C D:[id number], 8982188, 575000, 253546, 606517, 690001 #### [facility] [address] [place], [place] [address] Biller: Robert Ybarra MD Protein [Mass/Vol] 5.3 g/dL Low 6.0-8.5 [facility] Comment on above: Performed By: #### C D:[id number], 9525725, 201247, 498031, 949182, 474986 #### [facility] [address] [place] [address] Biller: Robert Ybarra MD Sodium [Moles/Vol] 137 mmol/L Normal 135-145 [facility] Comment on above: Performed By: #### C D:[id number], 6684553, 643024, 813356, 476025, 242857 #### [facility] [address] [place] [address] [id number] Biller: Robert Ybarra MD Urea nitrogen [Mass/Vol] 42 mg/dL High 10-20 [facility] Comment on above: Performed By: #### C D:[id number], 6994140, 813880, 124382, 683693, 029508 #### [facility] [address] [place] [address] [id number] Biller: Robert Ybarra MD Urea nitrogen/Creatinine [Mass ratio] 31.8 mg/mg Normal [facility] Comment on above: Performed By: #### C D:[id number], 7543831, 269276, 301197, 898918, 480202 #### [facility] [address] [place], [place] [address] Biller: Robert Ybarra MD CPKon 12-04-2021 CPK 3684 unit/L Critically abnormal [address] Comment on above: Result Comment: Crit ical Result(s) called at: 17:08:41 on 12/04/2021 by: Kp dennison, RBR to: TC Performed By: #### C D:[id number], 1762635, 222731, 970275, 253347, 263310 #### [facility] [address] [place], [place] [address] Biller: Robert Ybarra MD CPK 2217 unit/L Critically abnormal [address] Comment on above: Result Comment: Crit ical Result(s) called at: 04:10:50 on 12/04/2021 by: Byron dennison, RBR to: SF&XA&&XA&reviewed Performed By: #### C D:[id number], 7061672, 044367, 512013, 036420, 681805 #### [facility] [address] [place] [address] Biller: Robert Ybarra MD CPK 926 unit/L High 26-192 [facility] Comment on above: Performed By: #### 1 83617 ####[facility] [address] [place] [address] Medical Director: Robert Ybarra MD Consult Reporton 12-04-2021 Consult Report Patient: YUSUF MEDINA Age: 85 years Sex: Female : 1935 Associated Diagnoses: None Author: YENNY HODGE, [facility] Consult Note IMPRESSION: Mechanical fall. Rhabdomyolysis Type II MD elevated troponin without ACS Afib with slow [...] MG TAB 650 mg 2 tabs, ORAL, [id number] ACETAMINOPHEN 325 MG TAB 650 mg 2 tabs, ORAL, [id number] DEXTROSE 50% 50ML SYRINGE/VIAL 12.5 g 25 mL, IV Push, PRN DEXTROSE 50% 50ML SYRINGE/VIAL 25 g 50 mL, IV Push, PRN GLUCAGON 1MG INJ 1 mg, IM, PRN GLUCOSE GEL 15GM/42ML 15 g 1 packets, ORAL, PRN GLUCOSE GEL 15GM/42ML 30 g 2 packets, ORAL, PRN ONDANSETRON=ZOFRAN INJ 4 mg 2 mL, IV Push, [id number] Allergies (1) Active Reaction No Known Allergies [...] available. BNP No qualifying data available. Normal [facility] Consult Report Patient: YUSUF MEDINA Age: 85 years Sex: Female : 1935 Associated Diagnoses: None Author: ERIC DENTON MD History of Present Illness 85-year-old lady. Admitted 12/03/2021 Fell. Also confused. History was limited also because of language barrier. Apparently lives alone. 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 She fell. Unknown why she fell [...] is able to speak little bit of Trinidadian. Her son lives in the [facility]. She lives alone. 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 and there [...] MG TAB 650 mg 2 tabs, ORAL, [id number] ACETAMINOPHEN 325 MG TAB 650 mg 2 tabs, ORAL, [id number] DEXTROSE 50% 50ML SYRINGE/VIAL 12.5 g 25 mL, IV Push, PRN DEXTROSE 50% 50ML SYRINGE/VIAL 25 g 50 mL, IV Push, PRN GLUCAGON 1MG INJ 1 mg, IM, PRN GLUCOSE GEL 15GM/42ML 15 g 1 packets, ORAL, PRN GLUCOSE GEL 15GM/42ML 30 g 2 packets, ORAL, PRN ONDANSETRON=ZOFRAN INJ 4 mg 2 mL, IV Push, [id number] PERFLUTREN 2 ML INJ 2 ML, IV [...] Charted Temp Rectal 37.8 degC (DEC 04 08:) Heart Rate Peripheral 77 bpm (DEC 04 08:00) Resp Rate H 22br/min (DEC 04:) SBP 122 mmHg (DEC 04:) DBP L 55mmHg (DEC 04:) BMI 23.87 (DEC 04 04:45) Neurologic exam: Mental Status: Speech and language were okay. She spoke in broken Trinidadian. Good eye contact. Followed commands. She knew [...] Glucose Random (more content not included)... Normal [facility] Consult Report Patient: YUSUF MEDINA [...] Tylenol: 650 mg = 2 tabs, ORAL, [id number], PRN: Mild Pain Tylenol: 650 mg = 2 tabs, ORAL, [id number], PRN: Temperature Above 102 Zofran: 4 mg = 2 mL, IV Push, [id number], PRN: Nausea/Vomiting glucagon: 1 mg, IM, PRN, [...] MG TAB 650 mg 2 tabs, ORAL, S8IRQOY ACETAMINOPHEN 325 MG TAB 650 mg 2 tabs, ORAL, [id number] DEXTROSE 50% 50ML SYRINGE/VIAL 12.5 g 25 mL, IV Push, PRN DEXTROSE 50% 50ML SYRINGE/VIAL 25 g 50 mL, IV Push, PRN GLUCAGON 1MG INJ 1 mg, IM, PRN GLUCOSE GEL 15GM/42ML 15 g 1 packets, ORAL, PRN GLUCOSE GEL 15GM/42ML 30 g 2 packets, ORAL, PRN ONDANSETRON=ZOFRAN INJ 4 mg 2 mL, IV Push, [id number] PERFLUTREN 2 ML INJ 2 ML, IV [...] No activ (more content not included)... Normal [facility] ED Discharge Educationon ED Discharge Education Normal [facility] ED Patient Summaryon 022 ED Patient Summary [facility] Emergency Department Discharge Instructions [address] [place] [address] \.br\(Patient Copy)\.br\ \.br\Name: YUSUF MEDINA : 1935 \.br\Allergies: No Known Allergies\.br\Diagnosi s: Diagnoses This Visit\.br\ Abrasion of right elbow (S50.311A)\.br\ acute Hypothermia (T68.XXXA)\.br\ Contusion of right thigh (S70.11XA)\.br\ Fall ([id number])\.br\ Hypothermia due to exposure ([id number])\.br\\ .br\\.br\ \.br\ Visit Date: 12/03/2021 19:54:53 \.br\ Current Date Time: 12/04/2021 01:06:15 \.br\Address: [address] [place] [address] \.br\ \.br\ \.br\Primary Care Provider: \.br\Name: BELA RADHA S\.br\ \.br\ \.br\Emergency Department Care Providers: \.br\ Primary Physician: IDA ALMODOVAR MD \.br\ \.br\ \.br\\.br\Thank you for choosing [facility] for your emergency care. You are very important to us. Our goal is to demonstrate our high quality medical care, and provide you with a very good patient experience.\.br\\.br\Y ou may receive a survey about our service. Please take the time to complete the survey and return it so we can continue to enhance our service.\.br\\.br\Than k you again for allowing the [facility] Department to care for your medical needs. If you have questions about your care or follow up information please contact us at [phone].\.br\\.br \ Follow-Up Instructions\.br\ \.b r\YUSUF MEDINA has been given these follow-up instructions:\.br\\.br \Patient Education Materials\.br\ \.br\P YUSUF MARCIAL has been given the following patient education materials:\.br\\.br\ \.br\BEFORE YOU LEAVE\.br\\.br\Set up your [facility] [employer] account!\.br\ \.br\[employer] is a secure, online health management tool that connects you to portions of your hospital-based electronic medical record, allowing you to see test results, manage appointments, access discharge care instructions and much more.\.br\ \.br\You can access [employer] from a computer, tablet or smartphone. Enrollment/registratio n is required. If you do not have a [employer] account, please provide us with an email address before you leave so that we may set up an account for you.\.br\ \.br\New to [employer]!\.br\You may now securely connect some of the health management apps you use (e.g., fitness trackers, dietary trackers, etc.) to your health record in [facility]. This new feature provides expanded access to your health and wellness data, which will help you and your care team make informed decisions about your health care. \.br\If you are interested in using a health management gordo not currently connected to [employer], contact a Waiver Analyst at [phone] or . We will determine if the gordo meets the technical requirements to connect to [facility] and assure the security of your private [...] health or substance abuse issue, please call [facility] at [phone] or the National Suicide Prevention Lifeline at .\.br\ \.br\\.br\ \.br\ \.br\CAROL Almazan VIORICA, have received the follow-up provider(s) list, medication information and patient education materials/instructions and have verbalized understanding.\.br\ \.br\ \.br\Patient Signature \.br\Kalen e \.br\Leif e \.br\ \.br\ \.br\ Provider Signature \.br\Kalen e \.br\Leif e Normal [facility] ED Physician Reporton 2021 ED [...] \.br\ Lymph % 24.2 % NA \.br\ Towner % 3.7 % NA \.br\ Neutrophil % 70.8 % NA \.br\ Eosin % 0.9 % NA \.br\ Basos % 0.4 % NA \.br\ Lymph Count 5.46 x1000 HI \.br\ Towner Count 0.84 x1000 NORMAL \.br\ Neutrophil Count [...] mg/dL H (more content not included)... Normal [facility] ED Progress Noteon 2 ED Progress Note 12/03/215 PT TO ROOM 12 ARRIVED BY SQUAD TRAUMA CALLED FROM FIELD, SEE PAPER CHART FOR INFO. Normal [facility] HEMOon 12-04-2021 DIFF? No Normal [facility] Comment on above: Performed By: #### 1 76597, 268388, 815078, 7531047 ####[facility] [address] [place], [place] [address]) [phone] Director: Robert Ybarra MD Erythrocyte distribution width (RBC) [Ratio] 14.7 % High 11.5-14.5 [facility] Comment on above: Performed By: #### 1 13132, 805353, 019955, 1495887 ####[facility] [address] [place], [place] [address]) [phone] Director: Robert Ybarra MD Hematocrit (Bld) [Volume fraction] 30.7 % Low 36.0-46.0 [facility] Comment on above: Performed By: #### 1 58223, 474673, 852052, 4862232 ####[facility] [address] [place], [place] [address]) [phone] Director: Robert Ybarra MD Hemoglobin (Bld) [Mass/Vol] 10.4 g/dL Low 12.0-16.0 [facility] Comment on above: Performed By: #### 1 77695, 108196, 493540, 7274953 ####[facility] [address] [place], [place] [address]) [phone] Director: Robert Ybarra MD Instr WBC 10.1 Normal [facility] Comment on above: Performed By: #### 1 05886, 768966, 580309, 3392986 ####[facility] [address] [place], [place] [address]) [phone] Director: Robert Ybarra MD MCH (RBC) [Entitic mass] 30.2 pg Normal 27.0-34.0 [facility] Comment on above: Performed By: #### 1 , 306101, 584655, 4767906 ####[facility] [address] [place] [address] Medical Director: Robert Ybarra MD MCHC (RBC) [Mass/Vol] 33.9 g/dL Normal 32.0-37.0 [facility] Comment on above: Performed By: #### 1 , 832874, 306567, 4648905 ####[facility] [address] [place] [address] Medical Director: Robert Ybarra MD MCV (RBC) [Entitic vol] 89.3 fL Normal 80.0-100.0 [facility] Comment on above: Performed By: #### 1 , 765223, 451982, 0631276 ####[facility] [address] [place] [address] Medical Director: Robert Ybarra MD Nucleated RBC 0 /100WBC Normal [facility] Comment on above: Performed By: #### 1 , 643632, 258874, 6924773 ####[facility] [address] [place] [address] Medical Director: Robert Ybarra MD Platelet 310 x1000 Normal 150-450 [facility] Comment on above: Performed By: #### 1 , 674941, 353824, 1338599 ####[facility] [address] [place] [address] Medical Director: Robert Ybarra MD Platelet mean volume (Bld) [Entitic vol] 7.2 fL Low 7.4-10.4 [facility] Comment on above: Performed By: #### 1 , 369240, 728451, 8296468 ####[facility] [address] [place], [place] 7[address] Medical Director: Robert Ybarra MD RBC 3.44 x10 Low 4.20-5.40 [facility] Comment on above: Result Comment: Note : RBC morphology is normal unless otherwise stated. Evaluation performed only if differential is requested. Performed By: #### 1 85969, 299881, 638517, 1490104 ####[facility] [address] [place] [address] Medical Director: Robert Ybarra MD WBC 10.1 x10 Normal 4.5-11.0 [facility] Comment on above: Performed By: #### 1 43135, 559824, 479831, 5624485 ####[facility] [address] [place] [address] Medical Director: Robert Ybarra MD HGB A1Con 12-04-2021 HbA1c (Bld) [Mass fraction] 6.7 % Normal [facility] Comment on above: Result Comment: Refe rence Range: Diabetic Greater than or equal to 6.5 % Prediabetic 5.7?6.4 % Normal Less than 5.7 % Performed By: #### 1 11399 ####[facility] [address] [place] [address] Medical Director: Robert Ybarra MD IRON GROUPon 12-04-2021 Iron [Mass/Vol] 36 ug/dL Low 40-170 [facility] Comment on above: Result Comment: Resu lts may be inaccurate if performed within 14 days of IV iron dextran administration. Performed By: #### 1 68681, 306927, 602040, 7143810 ####[facility] [address] [place] [address] Medical Director: Robert Ybarra MD Saturation 9.8 % Low 20.0-50.0 [facility] Comment on above: Performed By: #### 1 86565, 869927, 725286, 8309908 ####[facility] [address] [place] [address] Medical Director: Robert Ybarra MD TIBC 367 ug/dl Normal 250-450 [facility] Comment on above: Result Comment: Resu lts may be inaccurate if performed within 14 days of IV iron dextran administration. Performed By: #### 1 35902, 797032, 911784, 5021053 ####[facility] [address] [place] [address] Medical Director: Robert Ybarra MD MG LEVELon 12-04-2021 Magnesium [Mass/Vol] 1.6 mg/dL Normal 1.6-2.6 [facility] Comment on above: Performed By: #### C D:[id number], 4700698, 734276, 303286, 400654, 345041 #### [facility] [address] [place] [address] Biller: Robert Ybarra MD Nursing Clinical Noteon 11-15 [...] at all times. Hourly rounding completed. Normal [facility] Nursing Clinical Note got report [...] 37.5, bear hugger is still on. Normal [facility] POC Glucoseon 12-04-2021 Glucose [Mass/Vol] 152 mg/dL High 72-100 [facility] Comment on above: Performed By: #### C D:[id number], 8081245, 590468, 298310, 691115, 269197 #### [facility] [address] [place] [address] Biller: Robert Ybarra MD Glucose [Mass/Vol] 177 mg/dL High 72-100 [facility] Comment on above: Performed By: #### C D:[id number], 8035584, 691594, 230255, 358893, 908578 #### [facility] [address] [place] [address] Biller: Robert Ybarra MD Progress Note-Physicianon Progress Note-Physician Patient: YUSUF MEDINA Age: 85 years Sex: Female : 1935 Associated Diagnoses: None Author: SHAKEEL MITCHELLCYNDIGERTRUDIS Patient with Rhabdo and numbers worsening but she insists on going home. I would ask if she goes home to drink a glass of juice alternating with a glass of water every 3 hrs for 24. Recheck CPK and BMP in 24 hrs. Gertrudis Shakeel MITCHELL Cylinder Inspector And Tester Normal [facility] Progress Note-Physician Patient: YUSUF MEDINA [...] she completely recovered with son arriving from [place] this afternoon. Objective Vital Signs (last 24 hrs) Last Charted Temp Rectal 37.8 degC (DEC 04 13:00) Heart Rate Peripheral 77 bpm (DEC 04:) Resp Rate H 26br/min (DEC 04 14:00) SBP 124 mmHg (DEC 04:) DBP L [...] Plan Diagnosis Abrasion of right elbow - [id number]-YI S50.311A, Emergency medicine, Medical. Acute Hypothermia - TKE73-JG T68.XXXA, Emergency medicine, Medical. Contusion of right thigh - RHN33-WJ S70.11XA, Emergency medicine, Medical. Fall - PNED [id number], Medical. Hypothermia due to exposure - PNED [id number], Medical. She has recovered from hypothermic episode and is now at normal baseline mental status and does not consent to detention facility placement. She will be discharged to home with home health care and family will monitor condition and safety.. Diagnosis Chronic kidney disease (CKD), stage III (moderate) - XVT85-NG N18.30, Medical. The patient's creatinine level is at their normal baseline. There is no significant changes in the patient's GFR. The patient's present medications will be continued. The patient's renal function will be monitored.. Diagnosis Diabetes mellitus type II, controlled - QFI00-ZT E11.9, Medical. The patient's blood sugars are adequately controlled. The present medications will be continued, with glucometer checks before meals and at bedtime and sliding scale coverage.. Education and Follow-up: Discharge Planning: Plan to discharge ( To home, Total time that I spent on this patient's discharge is greater than 30 minutes; 32minutes total. ). Normal [facility] T4on 12-04-2021 T4 [Mass/Vol] 9.9 ug/dL Normal 4.5-10.9 [facility] Comment on above: Result Comment: Shireen puncture should occur prior to sulfasalazine administration due to the potential for falsely elevated results. Baseline assay values before administration of sulfasalazine and sulfapyridine therapy would not be affected. Performed By: #### C D:[id number], 9142174, 723591, 639960, 852951, 810873 #### [facility] [address] [place] [address] Biller: Robert Ybarra MD TROPONIN HS 2HRon 12-04-2021 Delta Troponin 2 Hr 39 pg/mL High 0-14 [facility] Comment on above: Result Comment: The term acute myocardial infarction should be used when there is acute myocardial injury with clinical evidence of acute myocardial ischemia and the rise or fall of serial Troponin HS values (delta troponin) greater than or equal to 15 pg/mL with at least one Troponin HS value above the 99th percentile reference range Performed By: #### C D:[id number] #### [facility] [address] [place] [address] Biller: Robert Ybarra MD Troponin HS 2 Hr 105 pg/mL High 3-54 [facility] Comment on above: Performed By: #### C D:[id number] #### [facility] [address] [place] [address] Biller: Robert Ybarra MD TROPONIN HS 6HRon 12-04-2021 Delta Troponin 6 Hr 232 pg/mL High 0-14 [facility] Comment on above: Result Comment: The term acute myocardial infarction should be used when there is acute myocardial injury with clinical evidence of acute myocardial ischemia and the rise or fall of serial Troponin HS values (delta troponin) greater than or equal to 15 pg/mL with at least one Troponin HS value above the 99th percentile reference range Performed By: #### C D:[id number], 1056743, 312414, 093643, 386132, 213520 #### [facility] [address] [place] [address] Biller: Robert Ybarra MD Troponin HS 6 Hr 337 pg/mL Critically abnormal 3-54 [facility] Comment on above: Result Comment: Crit ical Result(s) called at: 04:06:04 on 12/04/2021 by: REKHA Be to: SF Performed By: #### C D:[id number], 9185936, 806620, 719448, 672242, 665139 #### [facility] [address] [place] [address] Biller: Robert Ybarra MD TSHon 12-04-2021 TSH Qn 0.53 m[IU]/L Normal 0.36-3.74 [facility] Comment on above: Result Comment: High levels of serum biotin may interfere with this test. Performed By: #### C D:[id number], 4545618, 300442, 808889, 602929, 319687 #### [facility] [address] [place] [address] Biller: Robert Ybarra MD U DOA WITH FENTANYLon 2021 Amphetamines, U Negative Normal [facility] Comment on above: Result Comment: [...] non-medical purposes. Urine for Drugs of Abuse [place] Levels: Barbiturate 200 ng/ml PCP 25 ng/ml Cocaine 300 ng/ml Opiates 2000 ng/ml Amphetamines 1000 ng/ml Benzodiazepines 200 ng/ml THC 50 ng/ml EXTC 500 ng/ml Performed By: #### C D:[id number] ####[facility] [address] [place], [place] [id number]) [phone] Director: Robert Ybarra MD Barbituates, [facility] Comment on above: Performed By: #### C D:[id number] ####[facility] [address] [place], [place] [id number]) [phone] Director: Robert Ybarra MD Benzodiazepines, U Negative [facility] Comment on above: Performed By: #### C D:[id number] ####[facility] [address] [place], [place] [id number]) [phone] Director: Robert Ybarra MD Cocaine, [facility] Comment on above: Performed By: #### C D:[id number] ####[facility] [address] [place], [place] [id number]) [phone] Director: Robert Ybarra MD Ecstasy, [facility] Comment on above: Performed By: #### C D:[id number] ####[facility] [address] [place] [id number]) [phone] Director: Robert Ybarra MD Fentanyl, [facility] Comment on above: Result Comment: Urin e [...] be used for non-medical purposes. Urine Fentanyl [place] Level: 1 ng/ml Performed By: #### C D:[id number] ####[facility] [address] [place], [place] [id number]) [phone] Director: Robert Ybarra MD Opiates, Negative [facility] Comment on above: Performed By: #### C D:[id number] ####[facility] [address] [place] [id number]) [phone] Director: Robert Ybarra MD PCP, Negative [facility] Comment on above: Performed By: #### C D:[id number] ####[facility] [address] [place] [id number]) [phone] Director: Robert Ybarra MD THC, U Negative [facility] Comment on above: Performed By: #### C D:[id number] ####[facility] [address] [place] [address] Medical Director: Robert Ybarra MD UAon 12-04-2021 Appearance, U Hazy [facility] Comment on above: Performed By: #### C D:[id number], 4718407, 706936, 039943, 517372, 791516 #### [facility] [address] [place] [address] Biller: Robert Ybarra MD Bacteria, U Occasional Normal [facility] Comment on above: Performed By: #### C D:[id number], 7045342, 006595, 904053, 596366, 737514 #### [facility] [address] [place] [address] Biller: Robert Ybarra MD Bilirubin, U Negative Normal [facility] Comment on above: Performed By: #### C D:[id number], 1248154, 014123, 921317, 554071, 987996 #### [facility] [address] [place] [address] Biller: Robert Ybarra MD Blood, U Large Abnormal Negative [facility] Comment on above: Performed By: #### C D:[id number], 4818010, 158936, 825208, 556166, 812776 #### [facility] [address] [place] [address] Biller: Robert Ybarra MD Color, U Yellow Normal [facility] Comment on above: Performed By: #### C D:[id number], 8093612, 040519, 649535, 628557, 911046 #### [facility] [address] [place] [address] Biller: Robert Ybarra MD Glucose Qual, U 150 mg/dl Abnormal Negative [facility] Comment on above: Performed By: #### C D:[id number], 5443059, 843723, 684137, 525982, 246005 #### [facility] [address] [place] [address] Biller: Robert Ybarra MD Ketones, U Trace Abnormal Negative [facility] Comment on above: Performed By: #### C D:[id number], 5213194, 123741, 445815, 888507, 890683 #### [facility] [address] [place] [address] Biller: Robert Ybarra MD Leukocyte Esterase, U Negative Normal Negative [facility] Comment on above: Performed By: #### C D:[id number], 2879459, 757358, 145858, 259991, 754736 #### [facility] [address] [place] [address] Biller: Robert Ybarra MD Mucous, U Occasional Normal [facility] Comment on above: Performed By: #### C D:[id number], 5833915, 639260, 016201, 201195, 431591 #### [facility] [address] [place] [address] Biller: Robert Ybarra MD Nitrite, U Negative Normal Negative [facility] Comment on above: Performed By: #### C D:[id number], 3262449, 160569, 348658, 536542, 036124 #### [facility] [address] [place] [address] Biller: Robert Ybarra MD pH, U 5.0 Normal 4.5-8.0 [facility] Comment on above: Performed By: #### C D:[id number], 0259907, 799581, 899243, 154920, 031300 #### [facility] [address] [place] [address] Biller: Robert Ybarra MD Protein, U Negative Normal Negative [facility] Comment on above: Performed By: #### C D:[id number], 7141937, 154192, 772637, 715121, 841906 #### [facility] [address] [place] [address] Biller: Robert Ybarra MD RBC/HPF, U 2 #/HPF Normal 0-3 [facility] Comment on above: Performed By: #### C D:[id number], 3003500, 718096, 602887, 328906, 595059 #### [facility] [address] [place] [address] Biller: Robert Ybarra MD Specific [place], U 1.009 Normal 1.001-1.035 [facility] Comment on above: Performed By: #### C D:[id number], 7829106, 870368, 560480, 562139, 805779 #### [facility] [place] [address] Biller: Robert Ybarra MD Squamous Epithelial Cells, U 1 #/HPF Normal [facility] Comment on above: Performed By: #### C D:[id number], 2148506, 141382, 670407, 752557, 914759 #### [facility] [address] [place] [address] Biller: Robert Ybarra MD U MICRO Indicated Normal [facility] Comment on above: Performed By: #### C D:[id number], 5578986, 668255, 164351, 145651, 164139 #### [facility] [address] [place] [address] Biller: Robert Ybarra MD Urobilinogen Qual, U <2.0 mg/dl Normal <2.0 mg/dl [facility] Comment on above: Result Comment: EU/d l and mg/dl are equivalent units. Performed By: #### C D:[id number], 1648903, 143763, 509020, 950680, 045540 #### [facility] [address] [place] [address] Biller: Robert Ybarra MD WBC/HPF, U 2 #/HPF Normal 0-5 [facility] Comment on above: Performed By: #### C D:[id number], 1059570, 695177, 366331, 321942, 719091 #### [facility] [address] [place] [address] Biller: Robert Ybarra MD VIT D 25 LEVELon 12-04-2021 Vit D 25 16 ng/mL [facility] Comment on above: Result Comment: Less than 20 ng/ml Deficient 20-30 ng/ml Insufficient 30-100 ng/ml Sufficient Greater than 100 ng/ml Potential toxicity Patients who have recently undergone fluorescein dye angiography in the past 48 to 72 hours (or longer if renal insufficient) may have falsely elevated results. Performed By: #### 9 [id number] ####[facility] [address] [place] [address] Medical Director: Robert Ybarra MD [...] by: Silvia Hill DO 12/03/2021 10:[address] SUPERVISOR OF ENGINES Technologist: JUAN PABLO PHILIPPE Dictated By: SILVIA HILL DO Signed By: SILVIA HILL DO Signed Out: 12/03/21 23:59:23 Normal [facility] ALCOHOL SERUMon 12-03-2021 Alcohol, Serum <3 Normal [facility] Comment on above: Result Comment: Note : Alcohol values performed at [facility] are performed on Serum and reported in mg/dl, which is different then the state reporting units of g/dl which is performed on whole blood. Result reporting units are based on test methodology and are not interchangable. Performed By: #### C D:[id number], 2568338, 909891, 040830, 113425, 291070 #### [facility] [address] [place] [address] Biller: Robert Ybarra MD APTTon 12-03-2021 aPTT Coag (Bld) [Time] 30.4 s Normal 26.0-39.0 [facility] Comment on above: Performed By: #### C D:[id number], 5923894, 293407, 848769, 180777, 160340 #### [facility] [address] [place] [address] Biller: Robert Ybarra MD AUTO DIFFon 12-03-2021 Baso Count 0.09 x1000 Normal 0.00-0.20 [facility] Comment on above: Performed By: #### C D:[id number], 7338743, 386470, 451888, 384030, 555104 #### [facility] [address] [place] [address] Biller: Robert Ybarra MD Basos % 0.4 % Normal [facility] Comment on above: Performed By: #### C D:[id number], 6836362, 615360, 928183, 506442, 039361 #### [facility] [address] [place] [address] Biller: Robert Ybarra MD Eos Count 0.21 x1000 Normal 0.00-0.50 [facility] Comment on above: Performed By: #### C D:[id number], 5893510, 206847, 397653, 646081, 760970 #### [facility] [address] [place] [address] Biller: Robert Ybarra MD Eosinophils/100 WBC (Bld) 0.9 % Normal [facility] Comment on above: Performed By: #### C D:[id number], 1225704, 019000, 389486, 080704, 051210 #### [facility] [address] [place] [address] Biller: Robert Ybarra MD Lymph Count 5.46 x1000 High 1.20-4.80 [facility] Comment on above: Performed By: #### C D:[id number], 1873951, 934273, 004686, 801294, 784029 #### [facility] [address] [place] [address] Biller: Robert Ybarra MD Lymphocytes/100 WBC (Bld) 24.2 % Normal [facility] Comment on above: Performed By: #### C D:808293692, 3507785, 266149, 543979, 933342, 467576 #### [facility] [address] [place] [address] Biller: Robert Ybarra MD Towner Count 0.84 x1000 Normal 0.10-1.00 [facility] Comment on above: Performed By: #### C D:413455648, 2473050, 870027, 773563, 520819, 151985 #### [facility] [address] [place] [address] Biller: Robert Ybarra MD Monocytes/100 WBC (Bld) 3.7 % Normal [facility] Comment on above: Performed By: #### C D:[id number], 5877087, 074759, 017593, 741694, 502561 #### [facility] [address] [place], [place] [address] Biller: Robert Ybarra MD Neutrophil Count (ANC) 15.99 x1000 High 1.40-8.80 [facility] Comment on above: Performed By: #### C D:[id number], 8386526, 391727, 786635, 184697, 145751 #### [facility] [address] [place] [address] Biller: Robert Ybarra MD Neutrophils/100 WBC (Bld) 70.8 % Normal [facility] Comment on above: Performed By: #### C D:488749503, 7711047, 660287, 657002, 313968, 071426 #### [facility] [address] [place] [address] Biller: Robert Ybarra MD Scan Differential Diff Scd Normal [facility] Comment on above: Result Comment: Slid e reviewed by technologist. Performed By: #### C D:[id number], 5797585, 675282, 105935, 237588, 550279 #### [facility] [address] [place] [address] [place] [address] Biller: Robert Ybarra MD BLD GASon 12-03-2021 MAGGIE TEST [facility] Comment on above: Performed By: #### C D:[id number], 6134614, 283465, 229429, 495392, 185045 #### [facility] [address] [place] [address] Biller: Robert Ybarra MD Base Excess -11.8 mmol/L [facility] Comment on above: Performed By: #### C D:[id number], 5864325, 528951, 977589, 732912, 169014 #### [facility] [address] [place] [address] Biller: Robert Ybarra MD ePAP 0 cmH20 [facility] Comment on above: Performed By: #### C D:[id number], 9277764, 920832, 471524, 230061, 608040 #### [facility] [address] [place] [address] Biller: Robert Ybarra MD FIO2 100 % [facility] Comment on above: Performed By: #### C D:379345658, 0514636, 939934, 618143, 202847, 056792 #### [facility] [address] [place] [address] Biller: Robert Ybarra MD HCO3 (Bld) [Moles/Vol] 15.5 mmol/L Low 22.0-26.0 [facility] Comment on above: Performed By: #### C D:[id number], 7013621, 465951, 761958, 226369, 609447 #### [facility] [address] [place] [address] Biller: Robert Ybarra MD iPAP 0 cmH20 [facility] Comment on above: Performed By: #### C D:507292242, 4057618, 229361, 007067, 702431, 610071 #### [facility] [address] [place] [address] Biller: Robert Ybarra MD O2 L/M 15.0 Normal [facility] Comment on above: Performed By: #### C D:[id number], 3592081, 901302, 950021, 849629, 981127 #### [facility] [address] [place] [address] Biller: Robert Ybarra MD Oxygen (Bld) [Partial pressure] 64.6 mm[Hg] Low 80.0-100.0 [facility] Comment on above: Performed By: #### C D:[id number], 2651825, 514687, 175021, 706595, 269990 #### [facility] [address] [place] [address] Biller: Robert Ybarra MD Oxygen saturation in Blood 86.6 % Normal [facility] Comment on above: Performed By: #### C D:135129455, 5088982, 922399, 560341, 704551, 789169 #### [facility] [address] [place] [address] Biller: Robert Ybarra MD PCO2 41.0 mmHg Normal 35.0-45.0 [facility] Comment on above: Performed By: #### C D:[id number], 4124209, 609257, 606059, 989914, 313137 #### [facility] [address] [place] [address] Biller: Robert Ybarra MD PEEP 0.0 cmH20 [facility] Comment on above: Performed By: #### C D:[id number], 0596427, 291066, 688664, 193957, 010810 #### [facility] [address] [place] [address] [place] [address] Biller: Robert Ybarra MD pH (Bld) 7.196 [pH] Critically abnormal 7.350-7.450 [facility] Comment on above: Result Comment: RESU LTS CALLED WITH READBACK TO DR. SABRINA MOHAN 12/03/2021 21:02:41 EST. Performed By: #### C D:625122727, 7897258, 998967, 481011, 454688, 763282 #### [facility] [address] [place] [address] Biller: Robert Ybarra MD PO2/FiO2 Ratio 65 Low 300-500 [facility] Comment on above: Performed By: #### C D:[id number], 3500672, 987669, 687454, 642705, 826163 #### [facility] [address] [place] [address] Biller: Robert Ybarra MD Pressure Support. 0 cmH20 Normal [facility] Comment on above: Performed By: #### C D:[id number], 1278090, 074595, 866681, 272900, 957754 #### [facility] [address] [place] [address]46 Biller: Robert Ybarra MD RATE 0 bpm Normal [facility] Comment on above: Performed By: #### C D:[id number], 1950617, 040734, 942580, 333286, 561194 #### [facility] [address] [place] [address] Biller: Robert Ybarra MD TEMP 37.0 degC Normal <=37.0 [facility] Comment on above: Performed By: #### C D:340232538, 0717579, 866748, 501071, 670868, 599066 #### [facility] [address] [place] [address] Biller: Robert Ybarra MD Type of Specimen Venous Normal [facility] Comment on above: Result Comment: RR A RT = Right Artery RB ART = Right Brachial Artery LR ART = Left Radial Artery LB ART = Left Brachial Artery RF ART = Right Femoral Artery LF ART = Left Femoral Artery Performed By: #### C D:[id number], 0791760, 717803, 704836, 210587, 564776 #### [facility] [address] [place] [address] Biller: Robert Ybarra MD Ventilation Mask [facility] Comment on above: Performed By: #### C D:138355460, 3106473, 678628, 709425, 244891, 229083 #### [facility] [address] [place] [address] 26969 Biller: Robert Ybarra MD VT 00 mL [facility] Comment on above: Performed By: #### C D:[id number], 3764350, 481084, 629937, 512856, 545251 #### [facility] [address] [place] [address]3389 Biller: Robert Ybarra MD COMPMETAon 12-03-2021 Albumin/Globulin [Mass ratio] 1.3 {ratio} [facility] Comment on above: Performed By: #### C D:[id number], 8671248, 381473, 083102, 042592, 818577 #### [facility] [address] [place] [address] Biller: Robert Ybarra MD GFR AA 36 [facility] Comment on above: Result Comment: Afri can [place] GFR Calc Medical judgement is necessary to [...] for drug dosing. Performed By: #### C D:[id number], 6640189, 467528, 911783, 208726, 743663 #### [facility] [address] [place] [address] Biller: Robert Ybarra MD Glomerular Filtration Rate 30 mL/min/1.73m? Normal [facility] Comment on above: Result Comment: [...] for drug dosing. Performed By: #### C D:[id number], 7004902, 823255, 550266, 191169, 313844 #### [facility] [address] [place] [address] Biller: Robert Ybarra MD Osmolality [Osmolality] 297 mosm/kg High 275-295 [facility] Comment on above: Performed By: #### C D:508358535, 4940605, 480960, 538627, 722945, 373549 #### [facility] [address] [place] [address] Biller: Robert Ybarra MD Urea nitrogen/Creatinine [Mass ratio] 27.3 mg/mg [facility] Comment on above: Performed By: #### C D:[id number], 7676549, 036015, 237456, 108152, 168753 #### [facility] [address] [place] [address] Biller: Robert Ybarra MD Albumin [Mass/Vol] 3.2 g/dL Low 3.4-5.0 [facility] Comment on above: Performed By: #### C D:[id number], 3493142, 421975, 391760, 131012, 438079 #### [facility] [address] [place] [address] Biller: Robert Ybarra MD Alk Phos 60 unit/L Normal 45-117 [facility] Comment on above: Performed By: #### C D:441274430, 2643216, 159904, 845464, 863050, 347032 #### [facility] [address] [place] [address] 80036 Biller: Robert Ybarra MD Bilirubin [Mass/Vol] 0.26 mg/dL Normal 0.20-1.00 [facility] Comment on above: Result Comment: Use of this assay is not recommended for patients undergoing treatment with eltrombopag due to the potential for falsely elevated results. Performed By: #### C D:[id number], 3842708, 705580, 856389, 541079, 220784 #### [facility] [address] [place], [place] [address] Biller: Robert Ybarra MD Calcium [Mass/Vol] 8.9 mg/dL Normal 8.5-10.5 [facility] Comment on above: Performed By: #### C D:840366829, 3198710, 092972, 412161, 273333, 135255 #### [facility] [address] [place], [place] [address] Biller: Robert Ybarra MD Chloride [Moles/Vol] 105 mmol/L Normal 100-109 [facility] Comment on above: Performed By: #### C D:773832216, 4479826, 667447, 059711, 031755, 625697 #### [facility] [address] [place] [address] Biller: Robert Ybarra MD CO2 [Moles/Vol] 18.9 mmol/L Low 21.0-32.0 [facility] Comment on above: Performed By: #### C D:432795186, 2799358, 077875, 562908, 704139, 395895 #### [facility] [address] [place] [address] Biller: Robert Ybarra MD Creatinine [Mass/Vol] 1.6 mg/dL High 0.6-1.0 [facility] Comment on above: Performed By: #### C D:737440364, 5780594, 788628, 899272, 975950, 369634 #### [facility] [address] [place] [address]66 Biller: Robert Ybarra MD Globulin (S) [Mass/Vol] 2.4 g/dL Normal [facility] Comment on above: Performed By: #### C D:[id number], 2214546, 980289, 103230, 332963, 632833 #### [facility] [address] [place] [address] Biller: Robert Ybarra MD Glucose [Mass/Vol] 270 mg/dL High 72-100 [facility] Comment on above: Result Comment: Shireen puncture should occur prior to sulfasalazine administration due to the potential for falsely depressed results. Venipuncture should occur prior to sulfapyridine administration due to the potential falsely elevated results. Baseline assay values before administration of sulfasalazine and sulfapyridine therapy would not be affected. Performed By: #### C D:[id number], 8523160, 759243, 775735, 173095, 294703 #### [facility] [address] [place] [address]11 Biller: Robert Ybarra MD GOT 61 unit/L High 15-37 [facility] Comment on above: Result Comment: Resu lts may be increased due to hemolysis. Venipuncture should occur prior to sulfasalazine and/or sulfapyridine administration due to the potential for falsely depressed results. Baseline assay values before administration of sulfasalazine and sulfapyridine therapy would not be affected. Performed By: #### C D:[id number], [id number], [id number], 060997, 047669, 901223 #### [facility] [address] [place] [address] Biller: Robert Ybarra MD GPT 49 unit/L Normal 13-56 [facility] Comment on above: Result Comment: Shireen puncture should occur prior to sulfasalazine and/or sulfapyridine administration due to the potential for falsely depressed results. Baseline assay values before administration of sulfasalazine and sulfapyridine therapy would not be affected. Performed By: #### C D:[id number], [id number], 413132, 098068, 804758, 548184 #### [facility] [address] [place] [address] Biller: Robert Ybarra MD Potassium [Moles/Vol] 5.5 mmol/L High 3.5-5.1 [facility] Comment on above: Result Comment: Resu lts may be increased due to hemolysis. Performed By: #### C D:[id number], [id number], 410997, 027337, 768682, 598571 #### [facility] [address] [place] [address] Biller: Robert Ybarra MD Protein [Mass/Vol] 5.6 g/dL Low 6.0-8.5 [facility] Comment on above: Performed By: #### C D:[id number], 3598331, 600282, 080770, 567452, 046936 #### [facility] [address] [place] [address] Biller: Robert Ybarra MD Sodium [Moles/Vol] 138 mmol/L Normal 135-145 [facility] Comment on above: Performed By: #### C D:[id number], 0393357, 081611, 363903, 423413, 719240 #### [facility] [address] [place] [address] Biller: Robert Ybarra MD Urea nitrogen [Mass/Vol] 45 mg/dL High 09-02 [facility] Comment on above: Performed By: #### C D:[id number], [id number], 957413, 329595, 940523, 040014 #### [facility] [address] [place] [address] Biller: Robert Ybarra MD CT ABD PELVIS WO [...] by: David Barraza MD 12/03/2021 7:[address] SUPERVISOR OF ENGINES Normal [facility] Comment on above: Order [...] by: David Barraza MD 12/03/2021 7:[address] SUPERVISOR OF ENGINES Technologist: KATJA GARVIN ND Dictated By: DAVID BARRAZA MD Signed By: DAVID BARRAZA MD Signed Out: 12/03/21 20:37:46 Normal [facility] CT CERVICAL SPINE WO CONTRAS [...] by: David Barraza MD 12/03/2021 7:[address] SUPERVISOR OF ENGINES Workstation: [id number] Technologist: KATJA GARVIN ND Dictated By: DAVID BARRAZA MD Signed By: DAVID BARRAZA MD Signed Out: 12/03/21 20:40:23 Normal [facility] CT CHEST WO CONTRSTon 2021 [...] by: David Barraza MD 12/03/2021 7:[address] SUPERVISOR OF ENGINES Workstation: [id number] Technologist: KATJA GARVIN ND Dictated By: DAVID BARRAZA MD Signed By: DAVID BARRAZA MD Signed Out: 12/03/21 20:46:42 Normal [facility] ED Pre-Arrival Formon 2021 ED Pre-Arrival Form Pre-Arrival Summary Name: ADRYAN-TRAUMA, Current Date: 12/03/2021 19:55:10 EST Gender: Date of : Age: Pre-Arrival Type: EMS ETA: 12/03/2021 20:08:00 EST Primary Care Physician: Presenting Problem: Pre-Arrival User: Laura Smith RN Referring Source: Location: 1 [facility] Emergency Department [address] [place] [address] Notes: Vital Signs: Doctor Call Back: DNR Status: Miscellaneous Issues: Normal [facility] HEMOon 12-03-2021 DIFF? No Normal [facility] Comment on above: Performed By: #### C D:[id number], [id number], 070701, 148608, 812807, 353432 #### [facility] [address] [place] [address] Biller: Robert Ybarra MD Nucleated RBC 0 /100WBC Normal [facility] Comment on above: Performed By: #### C D:[id number], 0868353, 342838, 444457, 984458, 107818 #### [facility] [address] [place] [address] Biller: Robert Ybarra MD [facility] Actions See Notes Abnormal [facility] Comment on above: Result Comment: Scan Slide. Perform manual diff if needed. Scan Slide. Path Review if Required. SNV Performed By: #### C D:[id number], 6925507, 851090, 787675, 723797, 827129 #### [facility] [address] [place] [address] Biller: Robert Ybarra MD Erythrocyte distribution width (RBC) [Ratio] 14.6 % High 11.5-14.5 [facility] Comment on above: Performed By: #### C D:[id number], 9089255, 560842, 252764, 188656, 713042 #### [facility] [address] [place] [address] Biller: Robert Ybarra MD Hematocrit (Bld) [Volume fraction] 31.2 % Low 36.0-46.0 [facility] Comment on above: Performed By: #### C D:[id number], 9947807, 110162, 703940, 539412, 090230 #### [facility] [address] [place] [address] Biller: Robert Ybarra MD Hemoglobin (Bld) [Mass/Vol] 10.1 g/dL Low 12.0-16.0 [facility] Comment on above: Performed By: #### C D:[id number], 6319891, 920465, 426565, 514273, 491425 #### [facility] [address] [place] [address] Biller: Robert Ybarra MD Instr WBC 22.6 Normal [facility] Comment on above: Performed By: #### C D:[id number], 4314408, 254538, 508646, 896848, 157167 #### [facility] [address] [place], [place] [id number] Biller: Robert Ybarra MD MCH (RBC) [Entitic mass] 29.6 pg Normal 27.0-34.0 [facility] Comment on above: Performed By: #### C D:[id number], 2164555, 026089, 484575, 452526, 422343 #### [facility] [address] [place] [address] Biller: Robert Ybarra MD MCHC (RBC) [Mass/Vol] 32.6 g/dL Normal 32.0-37.0 [facility] Comment on above: Performed By: #### C D:[id number], 6878935, 046928, 067625, 700309, 630436 #### [facility] [address] [place] [address] Biller: Robert Ybarra MD MCV (RBC) [Entitic vol] 90.9 fL Normal 80.0-100.0 [facility] Comment on above: Performed By: #### C D:[id number], 8875738, 035711, 894375, 797886, 318890 #### [facility] [address] [place] [address] Biller: Robert Ybarra MD MDW 16.08 Normal 13.98-20.00 [facility] Comment on above: Result Comment: [...] risk of Sepsis. Performed By: #### C D:[id number], 6577446, 868958, 746491, 809340, 586372 #### [facility] [address] [place] [address] Biller: Robert Ybarra MD Platelet 347 x1000 Normal 150-450 [facility] Comment on above: Performed By: #### C D:[id number], 9305296, 972807, 367154, 054573, 065518 #### [facility] [address] [place] [address] Biller: Robert Ybarra MD Platelet mean volume (Bld) [Entitic vol] 6.7 fL Low 7.4-10.4 [facility] Comment on above: Performed By: #### C D:[id number], 8025273, 987619, 574377, 146585, 816828 #### [facility] [address] [place] [address] Biller: Robert Ybarra MD RBC 3.43 x10 Low 4.20-5.40 [facility] Comment on above: Result Comment: Note : RBC morphology is normal unless otherwise stated. Evaluation performed only if differential is requested. Performed By: #### C D:[id number], 2414093, 750980, 610710, 217140, 792387 #### [facility] [address] [place] [address] Biller: Robert Ybarra MD WBC 22.6 x10 High 4.5-11.0 [facility] Comment on above: Performed By: #### C D:[id number], 8442204, 636893, 568955, 701210, 726726 #### [facility] [address] [place] [address] Biller: Robert Ybarra MD I8on 12-03-2021 Anion gap [Moles/Vol] 16 mmol/L Normal 10-20 [facility] Comment on above: Performed By: #### C D:[id number] ####[facility] [address] [place] [address]) [phone] Director: Robert Ybarra MD Chloride [Moles/Vol] 104 mmol/L Normal 98-109 [facility] Comment on above: Performed By: #### C D:[id number] ####[facility] [address] [place] [address] [id number]) [phone] Director: Robert Ybarra MD CO2 [Moles/Vol] 21 mmol/L Low 24-32 [facility] Comment on above: Performed By: #### C D:[id number] ####[facility] [address] [place] [address] [id number]) [phone] Director: Robert Ybarra MD Creatinine [Mass/Vol] 1.7 mg/dL High 0.6-1.3 [facility] Comment on above: Performed By: #### C D:[id number] ####[facility] [address] [place] [address] Medical Director: Robert Ybarra MD Glucose [Mass/Vol] 268 mg/dL High 72-110 [facility] Comment on above: Performed By: #### C D:[id number] ####[facility] [address] [place], [place] [id number]) [phone] Director: Robert Ybarra MD Hct, I-Stat 30 %PCV Low 40-54 [facility] Comment on above: Performed By: #### C D:[id number] ####[facility] [address] [place], [place] [id number]) [phone] Director: Robert Ybarra MD Hemoglobin (Bld) [Mass/Vol] 10.2 g/dL Low 14.0-18.0 [facility] Comment on above: Result Comment: The calculation of hemoglobin from hematocrit assumes a normal MCHC. Performed By: #### C D:[id number] ####[facility] [address] [place] [address] Medical Director: Robert Ybarra MD Ionized Calcium, I-Stat 1.24 mmol/L Normal 1.12-1.32 [facility] Comment on above: Performed By: #### C D:[id number] ####[facility] [address] [place] [address] Medical Director: Robert Ybarra MD Potassium [Moles/Vol] 5.2 mmol/L High 3.7-5.1 [facility] Comment on above: Performed By: #### C D:[id number] ####[facility] [address] [place] [address] Medical Director: Robert Ybarra MD Sodium [Moles/Vol] 134 mmol/L Low 138-146 [facility] Comment on above: Performed By: #### C D:[id number] ####[facility] [address] [place] [address] Medical Director: Robert Ybarra MD Urea nitrogen [Mass/Vol] 43 mg/dL High 8-26 [facility] Comment on above: Performed By: #### C D:[id number] ####[facility] [address] [place] [address] Medical Director: Robert Ybarra MD PT INRon 12-03-2021 INR Coag (PPP) [Relative time] 1.0 {INR} Normal [facility] Comment on above: Result Comment: INR Reference Range: Normal reference range for INR on patients not on anticoagulant therapy: 0.9-1.1 General therapeutic range for patients on anticoagulant therapy: 2.0-3.5 Performed By: #### C D:[id number], [id number], 477826, 940384, 330548, 572138 #### [facility] [address] [place] [address] Biller: Robert Ybarra MD Protime Patient 11.7 seconds Normal 9.8-13.4 [facility] Comment on above: Performed By: #### C D:[id number], 5515928, 434079, 608046, 540446, 261365 #### [facility] [address] [place] [address] Biller: Robert Ybarra MD TROPONIN HS 0HRon 12-03-2021 Troponin HS 0 Hr 66 pg/mL High 3-54 [facility] Comment on above: Performed By: #### C D:[id number], 1481195, 269746, 846930, 697097, 254877 #### [facility] [address] [place] [address] Biller: Robert Ybarra MD XR CHEST PORTABLEon 12-03-19 [...] by: David Barraza MD 12/03/2021 7:[address] SUPERVISOR OF ENGINES Technologist: SR JOSE MARTIN,RL Dictated By: DAVID BARRAZA MD Signed By: DAVID BARRAZA MD Signed Out: 12/03/21 20:26:51 Normal [facility] XR PELVIS APon 12-03-2021 XR [...] by: David Barraza MD 12/03/2021 7:[address] SUPERVISOR OF ENGINES Technologist: SR JOSE MARTIN,RL Dictated By: DAVID BARRAZA MD Signed By: DAVID BARRAZA MD Signed Out: 12/03/21 20:26:00 Normal [facility] pH Venouson 12-03-2021 pH Venous 7.196 Critically abnormal 7.310-7.410 [facility] Comment on above: Result Comment: RESU LTS CALLED WITH READBACK TO DR. SABRINA MOHAN 12/03/2021 21:04:42 EST. Performed By: #### C D:[id number] ####[facility] [address] [place] [address] Medical Director: Robert Ybarra MD XR Shoulder - left 3 Viewson 07-14-2021 IMPRESSION: 1. Advanced glenoid humeral osteoarthritis and chronic rotator cuff arthropathy with increased glenoid humeral joint space narrowing compared to the prior study. Electronic Equipment Installer: PSCB Transcribe Date/Time: Jul 14 2021 9:03A [...] left upper lung. DIVISION OF RADIOLOGY Provider, [facility] - 07/14/2021 * * *Final Report* [...] space narrowing compared to the prior study. Electronic Equipment Installer: PSCB Transcribe Date/Time: Jul 14 2021 9:03A Dictated by : MIRNA VIZCAINO MD This examination was interpreted and the report reviewed and electronically signed by: MIRNA VIZCAINO MD on Jul 14 2021 9:05AM EST [facility] Radiology Study observation (narrative) Mira archibald [facility] XR Shoulder - left 3 ViewsOr dered By: [facility] Provider on 07-14-2021 [facility] Vital Signs Date Time Vital Sign Value Performing Clinician Facility 02-13-2025 13:33-0400 Body temperature 97.7 [degF] Lien Bang DPM Work Phone: [facility] 02-13-2025 13:33-0400 Diastolic blood pressure 68 mm[Hg] Lien Bang DPM Work Phone: [facility] 02-13-2025 13:33-0400 Heart rate 101 /min Lien Bang DPM Work Phone: [facility] 02-13-2025 13:33-0400 Respiratory rate 20 /min Lien Bang DPM Work Phone: [facility] 02-13-2025 13:33-0400 SaO2% (BldA) [Mass fraction] 98 % Lien Bang DPM Work Phone: [facility] 02-13-2025 13:33-0400 Systolic blood pressure 119 mm[Hg] Lien Bang DPM Work Phone: [facility] 01-16-2025 13:41-0500 Body temperature 97.59 [degF] Lien Bang DPM Work Phone: [facility] 01-16-2025 13:41-0500 Diastolic blood pressure 73 mm[Hg] Lien Bang DPM Work Phone: [facility] 01-16-2025 13:41-0500 Heart rate 76 /min Lien Bang DPM Work Phone: [facility] 01-16-2025 13:41-0500 SaO2% (BldA) [Mass fraction] 96 % Lien Alex DPM Work Phone: [facility] 01-16-2025 13:41-0500 Systolic blood pressure 132 mm[Hg] Lien Alex DPM Work Phone: [facility] 01-08-2025 13:32-0500 Body temperature 98.1 [degF] Pierce Chi MD Work Phone: [facility] 01-08-2025 13:32-0500 Diastolic blood pressure 74 mm[Hg] Pierce Chi MD Work Phone: [facility] 01-08-2025 13:32-0500 Heart rate 95 /min Pierce Chi MD Work Phone: [facility] 01-08-2025 13:32-0500 SaO2% (BldA) [Mass fraction] 97 % Pierce Chi MD Work Phone: [facility] 01-08-2025 13:32-0500 Systolic blood pressure 165 mm[Hg] Pierce Chi MD Work Phone: [facility] 01-04-2025 08:05-0500 Body height 152.4 cm Tyesha Singleton MD Work Phone: [facility] 01-04-2025 08:05-0500 Body mass index (BMI) [Ratio] 20.24 kg/m2 Tyesha Singleton MD Work Phone: [facility] 01-04-2025 08:05-0500 Body weight 47 kg Tyesha Singleton MD Work Phone: [facility] 01-04-2025 08:05-0500 Diastolic blood pressure 59 mm[Hg] Tyesha Singleton MD Work Phone: [facility] Comment on above: per facility paperwork BP is at baseline 01-04-2025 08:05-0500 Heart rate 84 /min Tyesha Singleton MD Work Phone: [facility] 01-04-2025 08:05-0500 Respiratory rate 16 /min Tyesha Singleton MD Work Phone: [facility] 01-04-2025 08:05-0500 Systolic blood pressure 165 mm[Hg] Tyesha Singleton MD Work Phone: [facility] Comment on above: per facility paperwork BP is at baseline 01-02-2025 08:44-0500 Diastolic blood pressure 72 mm[Hg] Grupo ochoa MD Work Phone: [facility] Comment on above: recheck 01-02-2025 08:44-0500 Systolic blood pressure 152 mm[Hg] Grupo Mendez MD Work Phone: [facility] Comment on above: recheck 01-02-2025 08:41-0500 Body mass index (BMI) [Ratio] 20.24 kg/m2 Grupo Mendez MD Work Phone: [facility] 01-02-2025 08:41-0500 Body temperature 97.9 [degF] Grupo Mendez MD Work Phone: [facility] 01-02-2025 08:41-0500 Body weight 47 kg Grupo Mendez MD Work Phone: [facility] 01-02-2025 08:41-0500 Heart rate 85 /min Grupo Mendez MD Work Phone: [facility] 01-02-2025 08:41-0500 Respiratory rate 18 /min Grupo Mendez MD Work Phone: [facility] 01-02-2025 08:41-0500 SaO2% (BldA) [Mass fraction] 96 % Grupo Mendez MD Work Phone: [facility] 12-26-2024 13:07-0500 Body temperature 97.3 [degF] Lien Bang DPM Work Phone: [facility] 12-26-2024 13:07-0500 Diastolic blood pressure 79 mm[Hg] Lien Bang DPM Work Phone: [facility] 12-26-2024 13:07-0500 Heart rate 96 /min Lien Bang DPM Work Phone: [facility] 12-26-2024 13:07-0500 SaO2% (BldA) [Mass fraction] 95 % Lien Bang DPM Work Phone: [facility] 12-26-2024 13:07-0500 Systolic blood pressure 164 mm[Hg] Lien Bang DPM Work Phone: [facility] 12-02-2024 12:26-0500 SaO2% (BldA) [Mass fraction] 92 % UNKNOWN PROVIDER [facility] Comment on above: Order Comment: Specimen Type: ARTERIAL B LOOD SPECIMENOrdering Facility: [facility] Address: [address] [place], [place] [address] [address] Performed By: #### A LLBG ####[id number] [id number] [place] [phone] 10-29-2024 16:27-0500 Diastolic blood pressure 72 mm[Hg] Ab Benson MD Work Phone: [facility] Comment on above: trupbp 10-29-2024 16:27-0500 Heart rate 66 /min Ab Benson MD Work Phone: [facility] 10-29-2024 16:27-0500 Systolic blood pressure 159 mm[Hg] Ab Benson MD Work Phone: [facility] Comment on above: trupbp 10-29-2024 16:24-0500 Body mass index (BMI) [Ratio] 20.67 kg/m2 Ab Benson MD Work Phone: [facility] 10-29-2024 16:24-0500 Body temperature 99.3 [degF] Ab Benson MD Work Phone: [facility] 10-29-2024 16:24-0500 Body weight 48 kg Ab Benson MD Work Phone: [facility] 10-29-2024 16:24-0500 SaO2% (BldA) [Mass fraction] 97 % Ab Benson MD Work Phone: [facility] 09-17-2024 15:04-0500 Body mass index (BMI) [Ratio] 22.48 kg/m2 Grupo Mendez MD Work Phone: [facility] 09-17-2024 15:04-0500 Body weight 52.2 kg Grupo Mendez MD Work Phone: [facility] 09-17-2024 15:04-0500 Diastolic blood pressure 88 mm[Hg] Grupo ochoa MD Work Phone: [facility] 09-17-2024 15:04-0500 Heart rate 92 /min Grupo Mendez MD Work Phone: [facility] 09-17-2024 15:04-0500 Respiratory rate 16 /min Grupo Mendez MD Work Phone: [facility] 09-17-2024 15:04-0500 SaO2% (BldA) [Mass fraction] 99 % Grupo Mendez MD Work Phone: [facility] 09-17-2024 15:04-0500 Systolic blood pressure 166 mm[Hg] Grupo Mendez MD Work Phone: [facility] 09-13-2024 10:45-0400 Diastolic blood pressure 60 mm[Hg] Migdalia Archibald Work Phone: [facility] 09-13-2024 10:45-0400 Systolic blood pressure 150 mm[Hg] Migdalia Cramer MD Work Phone: [facility] 09-13-2024 10:20-0400 Body mass index (BMI) [Ratio] 22.09 kg/m2 Migdalia Cramer MD Work Phone: [facility] 09-13-2024 10:20-0400 Body weight 51.3 kg Migdalia Cramer MD Work Phone: [facility] 09-13-2024 10:20-0400 Heart rate 98 /min Migdalia Cramer MD Work Phone: [facility] 08-14-2024 10:36-0400 Body mass index (BMI) [Ratio] 22 kg/m2 Migdalia Cramer MD Work Phone: [facility] 08-14-2024 10:36-0400 Body temperature 97.59 [degF] Migdalia Cramer MD Work Phone: [facility] 08-14-2024 10:36-0400 Body weight 51.1 kg Migdalia Cramer MD Work Phone: [facility] 08-14-2024 10:36-0400 Diastolic blood pressure 68 mm[Hg] Migdalia Archibald Work Phone: [facility] 08-14-2024 10:36-0400 Heart rate 91 /min Migdalia Cramer MD Work Phone: [facility] 08-14-2024 10:36-0400 SaO2% (BldA) [Mass fraction] 96 % Migdalia Cramer MD Work Phone: [facility] 08-14-2024 10:36-0400 Systolic blood pressure 125 mm[Hg] Migdalia Cramer MD Work Phone: [facility] 07-12-2024 09:59-0400 Diastolic blood pressure 70 mm[Hg] Migdalia Archibald Work Phone: [facility] 07-12-2024 09:59-0400 Systolic blood pressure 142 mm[Hg] Migdalia Cramer MD Work Phone: [facility] 07-12-2024 09:31-0400 Body mass index (BMI) [Ratio] 21.23 kg/m2 Migdalia Cramer MD Work Phone: [facility] 07-12-2024 09:31-0400 Body weight 49.3 kg Migdalia Cramer MD Work Phone: [facility] 07-12-2024 09:31-0400 Heart rate 80 /min Migdalia Cramer MD Work Phone: [facility] 04-13-2023 15:23-0400 Body temperature 98.01 [degF] Willie Mitsch IMMIGRATION COORDINATOR.TOWER SWITCH OPERATOR Work Phone: [facility] 04-13-2023 15:23-0400 Body weight 54.07 kg Willie Mitsch IMMIGRATION COORDINATOR.TOWER SWITCH OPERATOR Work Phone: [facility] 04-13-2023 15:23-0400 Diastolic blood pressure 63 mm[Hg] Willie Mitsch IMMIGRATION COORDINATOR.TOWER SWITCH OPERATOR Work Phone: [facility] 04-13-2023 15:23-0400 Heart rate 80 /min Willie Mitsch IMMIGRATION COORDINATOR.TOWER SWITCH OPERATOR Work Phone: [facility] 04-13-2023 15:23-0400 Systolic blood pressure 125 mm[Hg] Willie Mitsch IMMIGRATION COORDINATOR.TOWER SWITCH OPERATOR Work Phone: [facility] 03-29-2023 15:26-0400 Body weight 53.34 kg Willie Mitsch IMMIGRATION COORDINATOR.TOWER SWITCH OPERATOR Work Phone: [facility] 03-29-2023 15:26-0400 Diastolic blood pressure 71 mm[Hg] Willie Mitsch IMMIGRATION COORDINATOR.TOWER SWITCH OPERATOR Work Phone: [facility] 03-29-2023 15:26-0400 Heart rate 80 /min Willie Mitsch IMMIGRATION COORDINATOR.TOWER SWITCH OPERATOR Work Phone: [facility] 03-29-2023 15:26-0400 Systolic blood pressure 150 mm[Hg] Willie Mitsch IMMIGRATION COORDINATOR.TOWER SWITCH OPERATOR Work Phone: [facility] 03-17-2023 14:18-0400 Body weight 54.88 kg Willie Mitsch IMMIGRATION COORDINATOR.TOWER SWITCH OPERATOR Work Phone: [facility] 03-17-2023 14:18-0400 Diastolic blood pressure 67 mm[Hg] Willie Mitsch IMMIGRATION COORDINATOR.TOWER SWITCH OPERATOR Work Phone: [facility] 03-17-2023 14:18-0400 Heart rate 86 /min Willie Mitsch IMMIGRATION COORDINATOR.TOWER SWITCH OPERATOR Work Phone: [facility] 03-17-2023 14:18-0400 Systolic blood pressure 146 mm[Hg] Willie Mitsch IMMIGRATION COORDINATOR.TOWER SWITCH OPERATOR Work Phone: [facility] 10-23-2022 08:59-0500 Body weight 55.48 kg Migdalia Cramer MD Work Phone: [facility] 10-23-2022 08:59-0500 Diastolic blood pressure 82 mm[Hg] Migdalia Archibald Work Phone: [facility] 10-23-2022 08:59-0500 Heart rate 87 /min Migdalia Cramer MD Work Phone: [facility] 10-23-2022 08:59-0500 Systolic blood pressure 145 mm[Hg] Migdalia Cramer MD Work Phone: [facility] 05-08-2022 08:07-0400 Diastolic blood pressure 70 mm[Hg] Migdalia Archibald Work Phone: [facility] 05-08-2022 08:07-0400 Heart rate 70 /min Migdalia Cramer MD Work Phone: [facility] 05-08-2022 08:07-0400 Systolic blood pressure 130 mm[Hg] Migdalia Cramer MD Work Phone: [facility] 05-08-2022 08:05-0400 Body weight 53.48 kg Migdalia Cramer MD Work Phone: [facility] 04-03-2022 08:08-0400 Body temperature 98.01 [degF] Migdalia Cramer MD Work Phone: [facility] 04-03-2022 08:08-0400 Body weight 52.34 kg Migdalia Cramer MD Work Phone: [facility] 04-03-2022 08:08-0400 Diastolic blood pressure 68 mm[Hg] Migdalia Archibald Work Phone: [facility] 04-03-2022 08:08-0400 Heart rate 76 /min Migdalia Cramer MD Work Phone: [facility] 04-03-2022 08:08-0400 Systolic blood pressure 137 mm[Hg] Migdalia Cramer MD Work Phone: [facility] Encounters Encounter Date Encounter Type Care Provider Facility Start: 09-16-2025 ambulatory Mario RODAS Facili ty: Start: 08-27-2025 ambulatory Mario RODAS Facili ty: Start: 08-19-2025 ambulatory Mario RODAS Facili ty: Start: 07-31-2025 ambulatory Mario RODAS Facili ty: Start: 07-31-2025 Registered Referred Mario [facility] Start: 07-22-2025 ambulatory Mario RODAS Facili ty: Start: 07-22-2025 Registered Referred Mario [facility] Start: 07-05-2025 End: 07-05-2025 Telephone encounter Marco A Merida PA-C Work Phone: [facility] Start: 07-01-2025 End: 07-02-2025 ambulatory Migdalia Cramer MD Work Phone: Family Medicine Comment on above: Yusuf's care Start: 06-28-2025 End: 07-01-2025 ambulatory Migdalia Cramer MD Work Phone: Family Medicine Comment on above: [facility] Start: 06-24-2025 ambulatory Mario RODAS Facili ty: Start: 06-24-2025 Registered Referred Mario Mak MD -[facility] Start: 06-20-2025 ambulatory Mario Coburn ty: Start: 06-20-2025 Registered Referred Mario Mak [facility] -[facility] Start: 06-04-2025 End: 06-04-2025 ambulatory aMrio Mak MD -[facility] Start: 06-04-2025 End: 06-04-2025 Departed Referred Mario Mak MD -[facility] Start: 06-04-2025 Registered Referred Mario [facility] -[facility] Start: 06-04-2025 End: 06-04-2025 ambulatory Mario RODAS Facility: Start: 05-28-2025 End: 05-28-2025 Telephone encounter Tyesha Singleton MD Work Phone: Rheumatology Comment on above: Results (Outside lab results) Start: 05-27-2025 ambulatory Mario RODAS Facili ty: Start: 05-27-2025 Registered Referred Mario [facility] MD -[facility] Start: 05-01-2025 End: 05-01-2025 Telephone encounter Tyesha Singleton MD Work Phone: Rheumatology Start: 04-29-2025 Registered Referred Mario [facility] -[facility] Start: 04-29-2025 End: 04-29-2025 ambulatory Mario RODAS Facility: Start: 04-26-2025 End: 04-26-2025 ambulatory Mario Mak MD -[facility] Start: 04-26-2025 End: 04-26-2025 Departed Referred Mario [facility] MD -[facility] Start: 04-26-2025 End: 04-26-2025 ambulatory Mario RODAS Facility: Start: 04-10-2025 ambulatory Mario RODAS Facili ty: Start: 04-10-2025 [facility] Start: 04-01-2025 End: 04-01-2025 ambulatory Mario Mak MD Work Phone: Start: 04-01-2025 End: 04-01-2025 [facility] Start: 04-01-2025 [facility] Start: 04-01-2025 End: 04-01-2025 ambulatory Mario RODAS Facility: Start: 03-12-2025 End: 03-12-2025 ambulatory Mario Mak MD Work Phone: Start: 03-12-2025 End: 03-12-2025 Departed Referred Mario [facility] Start: 03-12-2025 [facility]istered [facility] Start: 03-12-2025 End: 03-12-2025 ambulatory Mario RODAS Facility: Start: 03-04-2025 End: 03-04-2025 ambulatory Mario Mak MD Work Phone: Start: 03-04-2025 End: 03-04-2025 Departed Referred Mario Mak MD -[facility] Start: 03-04-2025 End: 03-04-2025 ambulatory Mario RODAS Facility: Start: 02-13-2025 End: 02-13-2025 Patient encounter procedure Lien Bang DPM Work Phone: Plastic Surgery Comment on above: 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) Start: 02-13-2025 End: 02-13-2025 ambulatory LIEN BANG Facility:[facility] Start: 02-11-2025 End: 02-11-2025 Telephone encounter Tyesha iSngleton MD Work Phone: Rheumatology Comment on above: Results (Lab results ) Start: 02-04-2025 End: 02-04-2025 ambulatory Mario Mak MD Work Phone: Start: 02-04-2025 End: 02-04-2025 [facility]ed [facility] Start: 02-04-2025 Registered Referred [facility] Start: 02-04-2025 End: 02-04-2025 ambulatory Mario RODAS Facility: Start: 01-16-2025 End: 01-18-2025 Refill Willie Kaur APRN.CNP Work Phone: Family Medicine Comment on above: Refill Request Start: 01-16-2025 End: 01-16-2025 ambulatory LIEN BANG Facility:[facility] Start: 01-16-2025 End: 01-16-2025 Patient encounter procedure Lien Bang DPM Work Phone: Plastic Surgery Comment on above: Pressure injury of r ight ankle, stage 3 (HCC) (Primary Dx) Start: 01-15-2025 End: 01-15-2025 ambulatory Mario Mak MD Work Phone: Start: 01-15-2025 End: 01-15-2025 Departed Referred Mario Mak MD -[facility] Start: 01-15-2025 End: 01-15-2025 ambulatory Mario RODAS Facility: Start: 01-08-2025 End: 01-08-2025 Patient encounter procedure [...] Start: 01-08-2025 End: 01-08-2025 ambulatory UNKNOWN PROVIDER Facility:[facility] Start: 01-07-2025 ambulatory Mario RODAS Facili ty: Start: 01-07-2025 Registered Referred Mario Mak MD [facility] Start: 01-04-2025 End: 01-04-2025 ambulatory TEYSHA SINGLETON Facility:[facility] Start: 01-04-2025 End: 01-04-2025 Office outpatient new 45 minutes Tyesha Singleton MD Work Phone: Rheumatology Comment on above: Pseudogout (Primary Dx); Ankle swelling, right; Medication monitoring encounter Start: 01-03-2025 End: 01-10-2025 Telephone encounter Migdalia Cramer MD Work Phone: [address] [place] [address] Comment on above: Patient Update Start: 01-02-2025 End: 01-02-2025 Telephone encounter Aditi ALLEN Work Phone: Hematology/Oncology Comment on above: Distress Assessment Start: 01-02-2025 End: 01-02-2025 ambulatory GRUPO MENDEZ Facility:[facility] Start: 01-02-2025 End: 01-02-2025 ambulatory Grupo Mendez MD Work Phone: Hematology/Oncology Comment on above: Leukocytosis, unspec ified type (Primary Dx); Normocytic anemia; Vitamin B6 deficiency; Cellulitis of right ankle Start: 01-02-2025 End: 01-02-2025 Patient encounter procedure Grupo Mendez MD Work Phone: Hematology/Oncology Start: 2024 ambulatory Marioscottie Coburn ty: Start: 2024 Registered Referred Mario Mak MD -[facility] Start: 12-26-2024 End: 12-26-2024 Telephone encounter Migdalia Cramer MD Work Phone: Internal Medicine [place] Comment on above: rehab discharge conc erns [...] Refill Willie Kaur APRN.CNP Work Phone: Family [facility] Comment on above: Refill Request Start: 12-24-2024 ambulatory Mario Coburn ty: Start: 12-24-2024 Registered Referred Mario Mak MD -[facility] Start: 12-18-2024 End: 12-18-2024 E-mail encounter from caregiver Willie Kaur APRN.CNP Work Phone: Family Medicine Start: 12-18-2024 End: 12-18-2024 Follow-up encounter Willie Kaur APRN.CNP Work Phone: Family Medicine Comment on above: [facility] up Start: 12-17-2024 ambulatory Mario Aubree Coburn ty: Start: 12-17-2024 Registered Referred Marioscottie Mak MD [facility] Start: 12-12-2024 End: 12-12-2024 Evaluation and management of inpatient DANIEL CASTILLO Facility:[facility] Start: 12-10-2024 End: 12-10-2024 Evaluation and management of inpatient DANIEL CASTILLO Facility:[facility] Start: 11-29-2024 End: 01-08-2025 Telephone encounter Pierce Chi MD Work Phone: [facility] Comment on above: [employer] (FO R IDC USE ONLY) Start: 11-28-2024 End: 11-28-2024 ambulatory Pierce Chi MD Work Phone: [facility] Adult Comment on above: [employer] Start Start: 11-26-2024 End: 11-26-2024 Telephone encounter Grupo Mendez MD Work Phone: Hematology/Oncology Comment on above: Appointment Start: 11-23-2024 End: 11-27-2024 Refill Willie Kaur APRN.CNP Work Phone: Family Medicine Comment on above: Refill Request Start: 11-21-2024 End: 12-12-2024 Evaluation and management of inpatient SHAUN SUAREZ Facility:[facility] Start: 11-21-2024 End: 11-22-2024 ambulatory Migdalia Cramer MD Work Phone: Family Medicine Comment on above: MRi and tests Start: 11-19-2024 End: 11-19-2024 ambulatory GRUPO MENDEZ Facility:[facility] Start: 11-19-2024 End: 11-19-2024 ambulatory SIMONE KEVIN Facility:[facility] Start: 11-19-2024 End: 11-19-2024 Subsequent hospital visit by physician Mri [facility] (I-Stat/3t) [facility] Comment on above: Chronic pain of righ t ankle [M25.571, G89.29] Start: 11-06-2024 End: 11-06-2024 ambulatory Grupo Mendez MD Work Phone: Hematology/Oncology Comment on above: [employer] up coming a ppt Start: 11-06-2024 End: 12-11-2024 Telephone encounter Willie Kaur APRN.TOWER SWITCH OPERATOR Work Phone: Family Medicine Comment on above: Appointment (Rheumat ology) Start: 11-05-2024 End: 11-05-2024 Telephone encounter Grupo Mendez MD Work Phone: Hematology/Oncology Comment on above: Results Start: 11-01-2024 End: 11-01-2024 ambulatory SIMONE KEVIN Facility:[facility] Start: 11-01-2024 End: 11-01-2024 ambulatory SELF Facility:[facility] Start: 11-01-2024 End: 11-01-2024 Patient encounter procedure Simone Kevin MD Work Phone: Orthopaedic Surgery [facility] Comment on above: Right ankle swelling (Primary Dx); Chronic pain of right ankle Start: 11-01-2024 End: 11-01-2024 Subsequent hospital visit by physician Max samantha Hodge 1 Xray [facility] Comment on above: Right ankle swelling [M25.471] Start: 10-29-2024 End: 10-29-2024 ambulatory AB BENSON Facility:[facility] Start: 10-29-2024 End: 10-29-2024 Office outpatient visit 15 minutes Ab Benson MD Work Phone: Family Medicine Comment on above: Chronic pain of righ t ankle (Primary Dx) Start: 10-11-2024 End: 10-12-2024 Refill Willie Kaur APRN.TOWER SWITCH OPERATOR Work Phone: Family Medicine Comment on above: Refill Request Start: 09-20-2024 End: 09-20-2024 ambulatory GRUPO MENDEZ Facility:[facility] Start: 09-20-2024 End: 09-20-2024 Patient encounter procedure Simone Kevin MD Work Phone: Orthopaedic Surgery [facility] Comment on above: Right ankle swelling ; Closed nondisplaced fracture of right calcaneus, unspecified portion of calcaneus, initial encounter Start: 09-19-2024 End: 09-19-2024 ambulatory MIGDALIA CRAMER Facility:[facility] Start: 09-19-2024 End: 09-19-2024 Subsequent hospital visit by physician Max [facility] Adryan Work Phone: Radiology Comment on above: Pain in joint involv ing right ankle and foot [M25.571] Start: 09-18-2024 End: 09-18-2024 Telephone encounter Grupo Mendez MD Work Phone: Hematology/Oncology Comment on above: Results (Suspicion f or calcaneal bone fracture ) Start: 09-18-2024 ambulatory [facility] Start: 09-18-2024 End: 09-18-2024 Subsequent hospital visit by physician [facility] 2 Work Phone: Radiology Comment on above: Right ankle swelling [M25.471] Start: 09-17-2024 End: 09-18-2024 ambulatory GRUPO ANDREA Facility:[facility] Start: 09-17-2024 End: 09-17-2024 Subsequent hospital visit by physician Max [facility] Adryan Work Phone: Radiology Comment on above: [...] End: 09-13-2024 ambulatory MIGDALIA CRAMER Facility:[facility] Start: 09-13-2024 End: 09-13-2024 Patient encounter procedure [...] ambulatory Migdalia Cramer MD Work Phone: Family [facility] Comment on above: Lab results and next steps Start: 09-04-2024 End: 09-05-2024 E-mail encounter from caregiver Migdalia Cramer MD Work Phone: Family [facility] Start: 08-21-2024 End: 08-24-2024 Refill Migdalia Cramer MD Work Phone: [facility] Comment on above: Refill Request Results Start: 08-14-2024 End: 08-14-2024 ambulatory WILLIE KAUR Facility:[facility] Start: 08-14-2024 End: 08-14-2024 ambulatory MARIUSZ ROMO Facility:[facility] Start: 08-14-2024 End: 08-14-2024 Office outpatient visit 25 minutes Migdalia Cramer MD Work Phone: Family [facility] Comment on above: Generalized weakness (Primary Dx); Headache, unspecified headache type; Leukocytosis, unspecified type; CKD stage 3 due to type 2 diabetes mellitus (HCC); Normocytic anemia; Essential hypertension; Insomnia; Arthralgia, unspecified joint Start: 08-13-2024 End: 08-13-2024 Emergency department patient visit MARIUSZ ROMO Facility:[facility] Start: 08-13-2024 End: 08-13-2024 ambulatory Migdalia Cramer MD Work Phone: [facility] Comment on above: Fatigue Start: 08-09-2024 End: 08-10-2024 Refill Willie Mitsch IMMIGRATION COORDINATOR.TOWER SWITCH OPERATOR Work Phone: [facility] Comment on above: Refill Request Start: 07-19-2024 End: 07-19-2024 Refill Migdalia Cramer MD Work Phone: [facility] Comment on above: Refill Request Start: 07-12-2024 End: 07-12-2024 ambulatory MIGDALIA CRAMER Facility:[facility] Start: 07-12-2024 End: 07-12-2024 Office outpatient visit 25 minutes Migdalia Cramer MD Work Phone: [facility] Comment on above: Essential hypertensi on [...] End: 07-11-2024 ambulatory WILLIE MITSCH Facility:[facility] Start: 05-23-2024 Refill Willie Mitsch IMMIGRATION COORDINATOR.TOWER SWITCH OPERATOR Work Phone: [facility] Comment on above: Refill Request Start: 04-25-2024 Refill Willie Mitsch IMMIGRATION COORDINATOR.TOWER SWITCH OPERATOR Work Phone: [facility] Comment on above: Refill Request Start: 04-16-2024 Telephone encounter Migdalia hidalgo MD Work Phone: [facility] Comment on above: Medication Problem Start: 03-21-2024 End: 03-21-2024 Patient encounter procedure Gertrudis Bill DO Work Phone: Ophthalmology Comment on above: Type 2 diabetes karen itus without retinopathy (HCC) (Primary Dx); Pseudophakia Start: 03-13-2024 ambulatory Lien Rutledge [facility] [place] Start: 03-13-2024 Patient encounter procedure Lien Rutledge MA [facility] [place] Comment on above: Population Health Na vigation Outreach ([facility] Cornel[facility] PCSA/) Start: 02-28-2024 Refill Migdalia gordon MD Work Phone: Family [facility] Start: 02-01-2024 Refill Ok Stockton Work Phone: [facility] Comment on above: Refill Request Start: 01-31-2024 Refill Ok Stockton Work Phone: [facility] Comment on above: Refill Request Start: 01-23-2024 Refill Migdalia gordon MD Work Phone: Family [facility] Comment on above: Refill Request Start: 01-11-2024 Refill Migdalia gordon MD Work Phone: Family [facility] Start: 10-14-2023 Refill Migdalia gordon MD Work Phone: Family [facility] Comment on above: Refill Request Start: 09-05-2023 Refill Williedavid Kaur APRN.CNP Work Phone: Family [facility] Comment on above: Refill Request Start: 08-31-2023 Telephone encounter Migdalia hidalgo MD Work Phone: Family [facility] Comment on above: Medication Problem Start: 06-23-2023 Refill Migdalia gordon MD Work Phone: Family [facility] Comment on above: Refill Request Start: 06-02-2023 Refill Migdalia gordon MD Work Phone: Family [facility] Comment on above: Refill Request Start: 05-11-2023 ambulatory Migdalia gordon MD Work Phone: Family [facility] Comment on above: Blood sugar levels Start: 04-28-2023 ambulatory No [facility] [place] Start: 04-19-2023 Telephone encounter Migdalia hidalgo MD Work Phone: Family Medicine Comment on above: Appointment (Re: [facility] [place] appointment) Patient Question (Re : Blood Glucose Monitor) Start: 04-13-2023 End: 04-13-2023 Patient encounter procedure Willie Kaur APRN.CNP Work Phone: Family Medicine Comment on above: Diabetes mellitus, n on-insulin dependent (NIDDM or type II) (HCC) (Primary Dx); CKD stage 3 due to type 2 diabetes mellitus (HCC) Start: 03-29-2023 End: 03-29-2023 Patient encounter procedure Willie Kaur APRN.TOWER SWITCH OPERATOR Work Phone: Family Medicine Comment on above: Diabetes mellitus, n on-insulin dependent (NIDDM or type II) (HCC) (Primary Dx); Essential hypertension; CKD stage 3 due to type 2 diabetes mellitus (HCC) Start: 03-24-2023 Telephone encounter Migdalia hidalgo MD Work Phone: Family Medicine Comment on above: Patient Update ([facility] update on how it is working with the change in medication -please call her caregiver Demetria ) Start: 03-22-2023 Telephone encounter Migdalia hidalgo MD Work Phone: Family Medicine Comment on above: Patient Question Start: 03-17-2023 End: 03-17-2023 Patient encounter procedure Willie Kaur APRN.TOWER SWITCH OPERATOR Work Phone: Family Medicine Comment on above: Pain in both hands ( Primary Dx); Pain in both wrists; Leukocytosis, unspecified type; Type 2 diabetes mellitus with stage 3 chronic kidney disease, without long-term current use of insulin, unspecified whether stage 3a or 3b CKD (HCC); Muscular deconditioning Start: 03-10-2023 Patient Outreach Lien jensen RN Work Phone: [employer] Comment on above: Transition Of Care ( [facility] [place], initial outreach) Start: 02-22-2023 Refill Willie Kaur APRN.TOWER SWITCH OPERATOR Work Phone: Family Medicine [place] Comment on above: Refill Request Start: 01-19-2023 Telephone encounter Migdalia hidalgo MD Work Phone: Family Medicine Comment on above: Refill Request Start: 12-28-2022 Refill Willie Mitemerson IMMIGRATION COORDINATOR.TOWER SWITCH OPERATOR Work Phone: Family Medicine Comment on above: [...] Refill Request Start: 08-17-2022 Refill Willie Mitemerson IMMIGRATION COORDINATOR.TOWER SWITCH OPERATOR Work Phone: Family Medicine Comment on above: [...] Start: 04-27-2022 ambulatory Katia Farooq RN IN [facility] Start: 04-27-2022 Follow-up encounter Katia love RN [employer] [employer] Comment on above: Transition Of Care ( TCM follow up) Start: 04-26-2022 Telephone encounter Migdalia hidalgo MD Work Phone: [facility] Comment on above: Patient Question Start: 04-08-2022 Telephone encounter Migdalia hidalgo MD Work Phone: Family [facility] Comment on above: Lab Orders [...] above: Pain; UTI Start: 03-29-2022 Telephone encounter Willei norman APRN.TOWER SWITCH OPERATOR Work Phone: Family Medicine Comment on above: Appointment (please make sure she schedules hospital follow up) Start: 03-23-2022 Refill Migdalia gordon MD Work Phone: Internal Medicine Comment on above: Refill Request Start: 03-19-2022 Refill Willie Kaur APRN.TOWER SWITCH OPERATOR Work Phone: [facility] Comment on above: Refill Request Start: 02-25-2022 Telephone encounter Migdalia hidalgo MD Work Phone: Family [facility] Comment on above: Medication Request Start: 12-25-2021 Refill Migdalia gordon MD Work Phone: Family Medicine Comment on above: Refill Request Start: 07-14-2021 End: 07-14-2021 Subsequent hospital visit by physician Max [facility] Adryan Work Phone: Radiology Comment on above: [...] Speci men Type: BLOOD SPECIMEN Ordering Facility: [facility] Address: [address] [place] [address] Performed By: #### B [id number] #### [facility] CLIA [id number] [address] [place] [address] [place] #### [id number] #### [facility] CLIA [id number] [address] [place] [address] [place] Start: 2024 Measurement [...] 09-18-2024 Dup-scan xtr veins unilateral/limited study Grupo Andrea MD Work Phone: Start: 09-13-2024 Adult depression scr eening assessment Migdalia Cramer MD Work Phone: Start: 07-14-2021 Radex shoulder compl ete minimum 2 views Simone Lyon MD Work Phone: Start: 06-14-2012 Colonoscopy Migdalia holt MD Work Phone: Plan of Treatment Date Care Activity Detail Author Start: 09-13-2025 Anxiety Screening Anxiety Screening [facility] Start: 09-13-2025 Covid-19 Vaccine ( season) Covid-19 Vaccine ( season) [facility] Comment on above: Postponed from 07/15/2024 (Declined at t his time) Start: 09-13-2025 Depression Screening Depression Screening [facility] Start: 09-13-2025 Diabetic foot examination Diabetic Foot Exam [facility] Start: 09-13-2025 RSV Vaccine (1 - 1-dose 75+ series) RSV Vaccine (1 - 1-dose 75+ series) [facility] Comment on above: Postponed from 2010 (Declined at t his time) Start: 09-13-2025 Shingrix Vaccine (2 of 3) Shingrix Vaccine (2 of 3) [facility] Comment on above: Postponed from 03/19/2015 (Declined at t his time) Start: 09-13-2025 Urine microalbumin profile DTaP,Tdap,Td Vaccine (1 - Tdap) [facility] Comment on above: Postponed from 1954 (Declined at t his time) Start: 08-14-2025 Hepatitis B screening Urine Albumin:Creatinine Ratio [facility] Start: 07-15-2025 Influenza vaccination [facility] Start: 07-11-2025 Hepatitis B surface antibody level LDL Cholesterol [facility] Start: 07-05-2025 End: 07-05-2025 Patient encounter procedure Rheumatology Comment on above: Return in about 6 months (around 07/04/20) for Pseudogout 20m. F/u 6 months Start: 05-13-2025 Influenza vaccination Influenza Vaccine (#1) [facility] Comment on above: Postponed from 07/15/2024 (Declined at t his time) Start: 03-21-2025 Glaucoma screening Dilated Retinal Exam [facility] Start: 03-12-2025 End: 03-12-2025 Patient encounter procedure 03/12/2025 9:00 AM EDT Office Visit Family Medicine [id number] [place] [id number] [place] [address] [place] [address] 6 month follow up Family Medicine Comment on above: 6 month follow up Start: 02-19-2025 Hemoglobin A1c measurement HbA1C [facility] Start: 02-13-2025 End: 05-15-2025 CBC W Auto Differential panel - Blood COMPLETE BLOOD COUNT AND DIFFERENTIAL Lab Routine Normocytic anemia Expected: 02/13/2025, Expires: 05/15/2025 [facility] Work Phone: Comment on above: Expected: 02/13/2025, Expires: Start: 02-13-2025 End: 05-15-2025 Comprehensive metabolic 2000 panel - Serum or Plasma COMPREHENSIVE METABOLIC PANEL Lab Routine Normocytic anemia Expected: 02/13/2025, Expires: 05/15/2025 [facility] Comment on above: Expected: 02/13/2025, Expires: Start: 02-13-2025 End: 05-15-2025 Pyridoxine [Mass/volume] in Serum or Plasma VITAMIN B6/PYRIDOXIN Lab Routine Normocytic anemia Vitamin B6 deficiency Expected: 02/13/2025, Expires: 05/15/2025 [facility] Comment on above: Expected: 02/13/2025, Expires: Start: 02-13-2025 End: 02-13-2025 Patient encounter procedure 02/13/2025 1:30 PM EDT Office Visit Plastic Surgery [address] [place] [address] Lien Bang, ANIRUDH [address], [address] [place] [address] appt confirmed with Nj at [facility] Right ankle-rescheduled with Malia at [facility] 01-28-2025 10:22am-KT Plastic Surgery Comment on above: appt confirmed with Nj at [facility] Right ankle-rescheduled with Malia at [facility] 01-28-2025 10:22am-KT Start: 02-11-2025 End: 09-13-2025 Basic metabolic 2000 panel - Serum or Plasma BASIC METABOLIC PANEL Lab Routine Essential hypertension Hypertensive kidney disease with stage 3b chronic kidney disease (HCC) CKD stage 3 due to type 2 diabetes mellitus (HCC) Diabetes mellitus, non-insulin dependent (NIDDM or type II) (HCC) Expected: 02/11/2025, Expires: 09/13/2025 [facility] Work Phone: Comment on above: Expected: 02/11/2025, Expires: Start: 02-11-2025 End: 05-13-2025 CBC panel - Blood by Automated count COMPLETE BLOOD COUNT Lab Routine Iron deficiency anemia, unspecified iron deficiency anemia type Leukocytosis, unspecified type Expected: 02/11/2025, Expires: 05/13/2025 [facility] Comment on above: Expected: 02/11/2025, Expires: Start: 02-11-2025 End: 09-13-2025 Hemoglobin A1c in Blood HEMOGLOBIN A1C Lab Routine Diabetes mellitus, non-insulin dependent (NIDDM or type II) (HCC) Expected: 02/11/2025, Expires: 09/13/2025 [facility] Comment on above: Expected: 02/11/2025, Expires: Start: 02-11-2025 End: 09-13-2025 LIPID PANEL, NONFASTING LIPID PANEL, NONFASTING Lab Routine Hyperlipidemia associated with type 2 diabetes mellitus (HCC) (HCC) Diabetes mellitus, non-insulin dependent (NIDDM or type II) (HCC) Expected: 02/11/2025, Expires: 09/13/2025 [facility] Comment on above: Expected: 02/11/2025, Expires: Start: 01-30-2025 End: 01-30-2025 Patient encounter procedure 01/30/2025 1:30 PM EDT Office Visit Plastic Surgery [address] [place] [address] Lien Bang DPM [address], [address] [place] [address] Right ankle Plastic Surgery Comment on above: Right ankle Start: 01-16-2025 End: 01-16-2025 Patient encounter procedure 01/16/2025 1:00 PM EST Office Visit Plastic Surgery [address] [place] [address] Lien Bang DPM [address], [address] [place], [place] [id number] Right ankle Plastic Surgery Comment on above: Right ankle Start: 01-08-2025 End: 01-08-2025 Patient encounter procedure Plastic Surgery Comment on above: new to us f/u abx from hospital visit mark carranza from [facility] [phone] f/u abx from hospita l visit patient from [facility] [phone] confirmed with [place] at [facility] 01/04/2021 f/u abx from hospital visit patient from [facility] [phone] Start: 01-04-2025 End: 01-04-2025 Patient encounter procedure 01/04/2025 8:00 AM EST Office Visit Rheumatology [address] [place] [address] Tyesha Singleton MD [address] [place] [address] [address] mcghee Rheumatology Comment on above: Inflammatory Arthritis per dr mcghee Start: 01-02-2025 End: 01-02-2025 Follow-up encounter 01/02/2025 8:30 AM EST Visit (SP) Office Hematology/Oncology [address] [place] [address] [place] [address] [place] [address] Follow up Hematology/Oncology Comment on above: Follow up Start: 12-26-2024 End: 12-26-2024 Patient encounter procedure 12/26/2024 1:00 PM EST Office Visit Plastic Surgery [address] [place] [address] Lien Bang, ANIRUDH [address] [facility], [address] [place] [id number] new to us right ankle -f/u from [...] EST - 11/27/2024 3:53 PM EST Surgery [facility] Surgery [address] [place] [address] Keerthi Plata, ANIRUDH [address] [facility], [address] [place] [id number] INCISION AND DRAINAGE ABSCESS EXTREMITY LOWER SIMPLE OR SINGLE [facility] Surgery Comment on above: INCISION AND [...] 9:10 AM EST Visit (SP) Office Hematology/Oncology [address] [place] [address] [place] [address] [place] [address] folow up Iron Hematology/Oncology Comment on above: folow up Iron Start: 11-21-2024 End: 02-20-2025 CBC W Auto Differential panel - Blood COMPLETE BLOOD COUNT AND DIFFERENTIAL Lab Routine Normocytic anemia Leukocytosis, unspecified type Expected: 11/21/2024, Expires: 02/20/2025 [facility] Work Phone: Comment on above: Expected: 11/21/2024, Expires: Start: 11-21-2024 End: 02-20-2025 Ferritin [Mass/volume] in Serum or Plasma FERRITIN Lab Routine Normocytic anemia Expected: 11/21/2024, Expires: 02/20/2025 [facility] Comment on above: Expected: 11/21/2024, Expires: Start: 11-21-2024 End: 02-20-2025 Iron and Iron binding capacity panel - Serum or Plasma IRON AND TIBC Lab Routine Normocytic anemia Expected: 11/21/2024, Expires: 02/20/2025 [facility] Comment on above: Expected: 11/21/2024, Expires: Start: 11-21-2024 End: 02-20-2025 Zinc [Mass/volume] in Serum or Plasma ZINC BLD Lab Routine Normocytic anemia Expected: 11/21/2024, Expires: 02/20/2025 [facility] Comment on above: Expected: 11/21/2024, Expires: Start: 11-21-2024 End: 11-21-2024 ambulatory 11/21/2024 9:15 AM EST Results Only [facility] [address] [place] [address] lab [facility] Comment on above: lab Start: 11-19-2024 End: 11-19-2024 Patient encounter procedure 11/19/2024 9:30 AM EST Appointment MRI [facility] [address] [place] [address] Chronic pain of right ankle [M25.571, G89.29] MRI [facility] Comment on above: Chronic pain of right ankle [M25.571, G8 9.29] Start: 11-14-2024 Advance Directive Discussion Advance Directive Discussion [facility] Start: 11-14-2024 Hemoglobin A1c measurement HbA1C [facility] Start: 11-14-2024 Medicare Advantage Annual Wellness Visit Medicare [facility] Annual Wellness Visit [facility] Start: 11-01-2024 End: 01-31-2025 C reactive protein [Mass/volume] in Serum or Plasma [facility] Comment on above: Expected: 11/01/2024, Expires: Start: 11-01-2024 End: 01-31-2025 Erythrocyte sedimentation rate [facility] Comment on above: Expected: 11/01/2024, Expires: Start: 10-11-2024 Hemoglobin A1c measurement HbA1C [facility] Start: 09-20-2024 End: 09-20-2024 Patient encounter procedure 09/20/2024 9:10 AM EST Office Visit Orthopaedic Surgery [facility] [address] [place] [address] Simone Kevin MD [address] [place] [address] Right ankle swelling [M25.471]; Closed nondisplaced fracture of right calcaneus, unspecified portion of calcaneus, initial encounter [S92.001A] Orthopaedic Surgery [facility] Comment on above: Right ankle swelling [M25.471]; Closed n ondisplaced fracture of right calcaneus, unspecified portion of calcaneus, initial encounter [S92.001A] Start: 09-18-2024 End: 09-18-2024 Patient encounter procedure 09/18/2024 8:15 AM EST Appointment Radiology [address] [place] [address] Right ankle swelling [M25.471] Radiology Comment on above: Right ankle swelling [M25.471] Start: 09-17-2024 End: 09-17-2024 [facility] visit new patient 09/17/2024 3:10 PM EST Visit (SP) Office Hematology/Oncology [address] [place] [address] [place] [address] [place] [address] New patient Hematology/Oncology Comment on above: New patient Start: 09-17-2024 End: 12-17-2024 Pyridoxine [Mass/volume] in Serum or Plasma [facility] Work Phone: Comment on above: Expected: 09/17/2024, Expires: Start: 09-13-2024 End: 09-13-2024 Patient encounter procedure 09/13/2024 10:00 AM EDT Office Visit Family Medicine [id number] [place], [place] [id number] Migdalia [place]ramer [place] [id number] [place], [place] [id number] AWV Due Family Medicine Comment on above: AWV Due Start: 09-11-2024 End: 12-11-2024 Basic metabolic 2000 panel - Serum or Plasma BASIC METABOLIC PANEL Lab Routine CKD stage 3 due to type 2 diabetes mellitus (HCC) Hypertensive kidney disease with stage 3b chronic kidney disease (HCC) Essential hypertension Diabetes mellitus, non-insulin dependent (NIDDM or type II) (HCC) Expected: 09/11/2024, Expires: 12/11/2024 [facility] Work Phone: Comment on above: Expected: 09/11/2024, Expires: Start: 09-11-2024 End: 12-11-2024 CBC panel - Blood by Automated count COMPLETE BLOOD COUNT Lab Routine Iron deficiency anemia, unspecified iron deficiency anemia type Expected: 09/11/2024, Expires: 12/11/2024 [facility] Comment on above: Expected: 09/11/2024, Expires: Start: 09-11-2024 End: 12-11-2024 Hemoglobin A1c in Blood HEMOGLOBIN A1C Lab Routine Diabetes mellitus, non-insulin dependent (NIDDM or type II) (HCC) Expected: 09/11/2024, Expires: 12/11/2024 [facility] Comment on above: Expected: 09/11/2024, Expires: Start: 09-11-2024 End: 12-11-2024 Microalbumin/Creatinine [Mass Ratio] in Urine ALBUMIN/CREATININE RATIO, URINE Lab Routine CKD stage 3 due to type 2 diabetes mellitus (HCC) Essential hypertension Diabetes mellitus, non-insulin dependent (NIDDM or type II) (HCC) Expected: 09/11/2024, Expires: 12/11/2024 [facility] Comment on above: Expected: 09/11/2024, Expires: Start: [...] deficiency anemia type Expected: 09/11/2024, Expires: 12/11/2024 [facility] Comment on above: Expected: 09/11/2024, Expires: 5 Start: 08-14-2024 End: 11-13-2024 Bacteria identified in Urine by Culture [facility] Comment on above: Expected: 08/14/2024, Expires: Start: 08-14-2024 End: 11-13-2024 C reactive protein [Mass/volume] in Serum or Plasma [facility] Comment on above: Expected: 08/14/2024, Expires: 4 Start: 08-14-2024 End: 11-13-2024 CBC W Ordered Manual Differential panel - Blood [facility] Comment on above: Expected: 08/14/2024, Expires: 4 Start: 08-14-2024 End: 11-13-2024 Erythrocyte sedimentation rate [facility] Work Phone: Comment on above: Expected: 08/14/2024, Expires: 4 Start: 08-14-2024 End: 11-13-2024 PROTEIN ELECT RND UR W/[facility] Comment on above: Expected: 08/14/2024, Expires: 4 Start: 08-14-2024 End: 11-13-2024 PROTEIN ELECTROPHORESIS SERUM W[facility] Comment on above: Expected: 08/14/2024, Expires: 4 Start: 08-14-2024 End: 11-13-2024 URINALYSIS, DIPSTICK ONLY [facility] Comment on above: Expected: 08/14/2024, Expires: 4 Start: 08-14-2024 End: 08-14-2024 Patient encounter procedure 08/14/2024 10:40 AM EDT Office Visit Family Medicine [address] [place] [address] [place] [address] [place] [address] Elevated white count and dehydration/fatigue Family Medicine Comment on above: Elevated white count and dehydration/fat igue Start: 07-15-2024 Covid-19 Vaccine ( season) Covid-19 Vaccine ( season) [facility] Start: 07-15-2024 Covid-19 Vaccine ( season) Covid-19 Vaccine ( season) [facility] Start: 07-15-2024 Influenza vaccination [facility] Start: 07-12-2024 End: 07-12-2024 Patient encounter procedure 07/12/2024 9:40 AM EDT Office Visit Family Medicine [address] [place] [address] [place] [address] [place] [address] Follow Up Family Medicine Comment on above: Follow Up Start: 04-12-2024 End: 04-12-2024 Patient encounter procedure 04/12/2024 11:30 AM EDT Office Visit Rheumatology [id number] [place] [address] [place] [address] [place] [address] HFU pseudogout Rheumatology Comment on above: HFU pseudogout Start: 03-21-2024 End: 03-21-2024 Patient encounter procedure 03/21/2024 10:45 AM EDT Office Visit OPHT Ophthalmology [id number] Gertrudis Bill, [address] [place] [address] Dilated Retinal Exam Ophthalmology Comment on above: Dilated Retinal Exam Start: 03-13-2024 End: 09-13-2024 Basic metabolic 2000 panel - Serum or Plasma BASIC METABOLIC PANEL Lab Routine Diabetes mellitus, non-insulin dependent (NIDDM or type II) (HCC) Hyperlipidemia associated with type 2 diabetes mellitus (HCC) (HCC) Essential hypertension Expected: 03/13/2024, Expires: 09/13/2024 [facility] Comment on above: Expected: 03/13/2024, Expires: Start: 03-13-2024 End: 09-13-2024 Hemoglobin A1c in Blood HEMOGLOBIN A1C Lab Routine Diabetes mellitus, non-insulin dependent (NIDDM or type II) (HCC) Expected: 03/13/2024, Expires: 09/13/2024 [facility] Work Phone: Comment on above: Expected: 03/13/2024, Expires: Start: 03-13-2024 End: 09-13-2024 LIPID PANEL, NONFASTING LIPID PANEL, NONFASTING Lab Routine Hyperlipidemia associated with type 2 diabetes mellitus (HCC) (HCC) Expected: 03/13/2024, Expires: 09/13/2024 [facility] Comment on above: Expected: 03/13/2024, Expires: Start: 03-13-2024 End: 09-13-2024 Microalbumin/Creatinine [Mass Ratio] in Urine ALBUMIN/CREATININE RATIO, URINE Lab Routine Diabetes mellitus, non-insulin dependent (NIDDM or type II) (HCC) Expected: 03/13/2024, Expires: 09/13/2024 [facility] Comment on above: Expected: 03/13/2024, Expires: Start: 11-14-2023 Advance Directive Discussion Advance Directive Discussion [facility] Start: 11-14-2023 Behavioral Health Screening Behavioral Health Screening [facility] Start: 11-14-2023 Depression Assessment Depression Assessment [facility] Start: 11-12-2023 Hemoglobin A1c measurement HbA1C [facility] Start: 11-12-2023 Hemoglobin A1c/Hemoglobin.total in Blood HBA1C [facility] Start: 10-23-2023 3 comp foot exam completed DIABETIC FOOT EXAM [facility] Start: 10-23-2023 Diabetic foot examination Diabetic Foot Exam [facility] Start: 10-21-2023 Hepatitis B screening URINE ALBUMIN:CREATININE RATIO [facility] Start: 10-21-2023 Hepatitis B surface antibody level LDL CHOLESTEROL [facility] Start: 09-07-2023 Hemoglobin A1c/Hemoglobin.total in Blood HBA1C [facility] Start: 07-15-2023 Covid-19 Vaccine ( season) Covid-19 Vaccine () [facility] Start: 07-15-2023 Influenza vaccination [facility] Start: 06-17-2023 End: 08-17-2023 Basic metabolic 2000 panel - Serum or Plasma BASIC METABOLIC PNL Lab Routine Type 2 diabetes mellitus with stage 3 chronic kidney disease, without long-term current use of insulin, unspecified whether stage 3a or 3b CKD (HCC) Expected: 06/17/2023 (Approximate), Expires: 08/17/2023 [facility] Work Phone: Comment on above: Expected: 06/17/2023 (Approximate), Expi res: 08/17/2023 Start: 06-17-2023 End: 08-17-2023 Hemoglobin A1c in Blood HGB A1C Lab Routine Type 2 diabetes mellitus with stage 3 chronic kidney disease, without long-term current use of insulin, unspecified whether stage 3a or 3b CKD (HCC) Expected: 06/17/2023 (Approximate), Expires: 08/17/2023 [facility] Work Phone: Comment on above: Expected: 06/17/2023 (Approximate), Expi res: 08/17/2023 Start: 04-29-2023 End: 06-29-2023 Basic metabolic 2000 panel - Serum or Plasma BASIC METABOLIC PNL Lab Routine CKD stage 3 due to type 2 diabetes mellitus (HCC) Diabetes mellitus, non-insulin dependent (NIDDM or type II) (HCC) Expected: 04/29/2023 (Approximate), Expires: 06/29/2023 [facility] Work Phone: Comment on above: Expected: 04/29/2023 (Approximate), Expi res: 06/29/2023 Start: 04-21-2023 Hemoglobin A1c/Hemoglobin.total in Blood HBA1C [facility] Start: 03-23-2023 End: 05-23-2023 Basic metabolic 2000 panel - Serum or Plasma BASIC METABOLIC PNL Lab Routine Diabetes mellitus, non-insulin dependent (NIDDM or type II) (HCC) Expected: 03/23/2023, Expires: 05/23/2023 [facility] Work Phone: Comment on above: Expected: 03/23/2023, Expires: 3 Start: 03-23-2023 End: 05-23-2023 Hemoglobin A1c in Blood HGB A1C Lab Routine Diabetes mellitus, non-insulin dependent (NIDDM or type II) (HCC) Expected: 03/23/2023, Expires: 05/23/2023 [facility] Work Phone: Comment on above: Expected: 03/23/2023, Expires: 3 Start: 03-23-2023 End: 05-23-2023 SCHEDULE LAB TESTING SCHEDULE LAB TESTING Lab Routine Diabetes mellitus, non-insulin dependent (NIDDM or type II) (HCC) Expected: 03/23/2023, Expires: 05/23/2023 [facility] Work Phone: Comment on above: Expected: 03/23/2023, Expires: 3 Start: 11-14-2022 ADVANCE DIRECTIVE DISCUSSION ADVANCE DIRECTIVE DISCUSSION [facility] Start: 11-14-2022 DEPRESSION ASSESSMENT DEPRESSION ASSESSMENT [facility] Start: 10-27-2022 Hemoglobin A1c/Hemoglobin.total in Blood HBA1C [facility] Start: 10-15-2022 3 comp foot exam completed DIABETIC FOOT EXAM [facility] Start: 10-15-2022 SHINGRIX VACCINE (2 of 3) SHINGRIX VACCINE (2 of 3) [facility] Comment on above: Postponed from 03/19/2015 (Declined at t his time) Start: 10-15-2022 Urine microalbumin profile DTAP,TDAP,TD (1 - Tdap) [facility] Comment on above: Postponed from 1954 (Declined at t his time) Start: 10-12-2022 Hepatitis B screening URINE ALBUMIN:CREATININE RATIO [facility] Start: 10-12-2022 Hepatitis B surface antibody level LDL CHOLESTEROL [facility] Start: 10-08-2022 End: 12-08-2022 ALBUMIN/CREAT RATIO RND UR ALBUMIN/CREAT RATIO RND UR Lab Routine Diabetes mellitus, non-insulin dependent (NIDDM or type II) (HCC) Hypertensive kidney disease with stage 3b chronic kidney disease (HCC) Expected: 10/08/2022, Expires: 12/08/2022 [facility] Work Phone: Comment on above: Expected: 10/08/2022, Expires: 3 Start: 10-08-2022 End: 12-08-2022 Basic metabolic 2000 panel - Serum or Plasma BASIC METABOLIC PNL Lab Routine Diabetes mellitus, non-insulin dependent (NIDDM or type II) (HCC) CKD stage 3 due to type 2 diabetes mellitus (HCC) Essential hypertension Hypertensive kidney disease with stage 3b chronic kidney disease (HCC) Expected: 10/08/2022, Expires: 12/08/2022 [facility] Work Phone: Comment on above: Expected: 10/08/2022, Expires: 3 Start: 10-08-2022 End: 12-08-2022 Hemoglobin A1c in Blood HGB A1C Lab Routine Diabetes mellitus, non-insulin dependent (NIDDM or type II) (HCC) Expected: 10/08/2022, Expires: 12/08/2022 [facility] Work Phone: Comment on above: Expected: 10/08/2022, Expires: 3 Start: 10-08-2022 End: 12-08-2022 LIPID PANEL, NONFASTING LIPID PANEL, NONFASTING Lab Routine Diabetes mellitus, non-insulin dependent (NIDDM or type II) (HCC) Hyperlipidemia associated with type 2 diabetes mellitus (HCC) Expected: 10/08/2022, Expires: 12/08/2022 [facility] Work Phone: Comment on above: Expected: 10/08/2022, Expires: 3 Start: 09-24-2022 Hemoglobin A1c/Hemoglobin.total in Blood HBA1C [facility] Start: 07-26-2022 End: 09-25-2022 CBC panel - Blood by Automated count CBC Lab Routine Iron deficiency anemia, unspecified iron deficiency anemia type CKD stage 3 due to type 2 diabetes mellitus (HCC) Expected: 07/26/2022, Expires: 09/25/2022 [facility] Work Phone: Comment on above: Expected: 07/26/2022, Expires: 2 Start: 07-26-2022 End: 09-25-2022 Ferritin [Mass/volume] in Serum or Plasma FERRITIN BLD Lab Routine Iron deficiency anemia, unspecified iron deficiency anemia type Expected: 07/26/2022, Expires: 09/25/2022 [facility] Work Phone: Comment on above: Expected: 07/26/2022, Expires: 2 Start: 07-26-2022 End: 09-25-2022 Iron and Iron binding capacity panel - Serum or Plasma IRON + TIBC Lab Routine Iron deficiency anemia, unspecified iron deficiency anemia type Expected: 07/26/2022, Expires: 09/25/2022 [facility] Work Phone: Comment on above: Expected: 07/26/2022, Expires: 2 Start: 07-15-2022 Influenza vaccination [facility] Start: 04-26-2022 End: 06-26-2022 CBC panel - Blood by Automated count CBC Lab Routine Iron deficiency anemia, unspecified iron deficiency anemia type Expected: 04/26/2022, Expires: 06/26/2022 [facility] Work Phone: Comment on above: Expected: 04/26/2022, Expires: 2 Start: 04-26-2022 End: 06-26-2022 RETIC COUNT RETIC COUNT Lab Routine Iron deficiency anemia, unspecified iron deficiency anemia type Expected: 04/26/2022, Expires: 06/26/2022 [facility] Work Phone: Comment on above: Expected: 04/26/2022, Expires: 2 Start: 04-12-2022 End: 06-12-2022 Bacteria identified in Urine by Culture URINE CULTURE Microbiology Routine Acute cystitis without hematuria Expected: 04/12/2022, Expires: 06/12/2022 [facility] Work Phone: Comment on above: Expected: 04/12/2022, Expires: 2 Start: 04-12-2022 End: 06-12-2022 URINALYSIS, DIPSTICK ONLY URINALYSIS, DIPSTICK ONLY Lab Routine Acute cystitis without hematuria Expected: 04/12/2022, Expires: 06/12/2022 [facility] Work Phone: Comment on above: Expected: 04/12/2022, Expires: 2 Start: 04-11-2022 Hemoglobin A1c/Hemoglobin.total in Blood HBA1C [facility] Start: 11-14-2021 ADVANCE DIRECTIVE DISCUSSION ADVANCE DIRECTIVE DISCUSSION [facility] Start: 11-14-2021 DEPRESSION ASSESSMENT DEPRESSION ASSESSMENT [facility] Start: 12-07-2018 Glaucoma screening Dilated Retinal Exam [facility] Start: 12-07-2018 Hepatitis C antibody, confirmatory test DILATED RETINAL EXAM [facility] Start: 10-22-2016 PNEUMOCOCCAL: 65+ (2 - PPSV23 or PCV20) PNEUMOCOCCAL: 65+ (2 - PPSV23 or PCV20) [facility] Start: 03-19-2015 SHINGRIX VACCINE (2 of 3) SHINGRIX VACCINE (2 of 3) [facility] Start: 06-14-2013 Colonoscopy COLONOSCOPY [facility] Start: 06-14-2013 Screening for malignant neoplasm of colon Colonoscopy [facility] Start: 06-15-2012 COLORECTAL CANCER SCREENING COLORECTAL CANCER SCREENING [facility] Start: 06-15-2012 Screening for malignant neoplasm of colon Colorectal Cancer Screening [facility] Start: 2010 RSV Vaccine (1 - 1-dose 75+ series) RSV Vaccine (1 - 1-dose 75+ series) [facility] Start: 1995 Hepatitis B Vaccine (1 of 3 - Risk 3-dose series) Hepatitis B Vaccine (1 of 3 - Risk 3-dose series) [facility] Start: 1995 RSV Vaccine (1 - 1-dose 60+ series) RSV Vaccine (1 - 1-dose 60+ series) [facility] Start: 1980 COLOGUARD (FIT-DNA) COLOGUARD (FIT-DNA) [facility] Start: [address] COLONOGRAPHY [facility] Start: 1980 FECAL OCCULT BLOOD FECAL OCCULT BLOOD [facility] Start: 1980 Screening for malignant neoplasm of colon [facility] Start: 1980 SIGMOIDOSCOPY SIGMOIDOSCOPY [facility] Start: 1954 Urine microalbumin profile [facility] Start: 1953 Anxiety Screening Anxiety Screening [facility] Start: 1953 Depression Screening Depression Screening [facility] Start: 1940 COVID-19 VACCINE (#1) COVID-19 VACCINE (#1) [facility] Start: 1940 COVID-19 VACCINE (1) COVID-19 VACCINE (1) [facility] Start: 06-30-1936 COVID-19 VACCINE (#1) COVID-19 VACCINE (#1) [facility] COLOGUARD COLOGUARD Lab Ro utine Screening for colon cancer Ordered: 04/08/2022 [facility] Work Phone: Comment on above: Ordered: 04/08/2022 End: 12-01-2025 MR Ankle - right WO contrast MRI ANKLE WO IVCON RIGHT Radiology Routine Chronic pain of right ankle 1 Occurrences starting 11/01/2024 until 12/01/2025 [facility] Comment on above: 1 Occurrences starting 11/01/2024 until 12/01/2025 End: 09-17-2024 XR Ankle - right AP and Lateral and oblique [facility] Work Phone: Comment on above: 1 Occurrences starting 09/17/2024 until 09/17/2024 End: 12-01-2025 XR Ankle - right AP and Lateral and oblique XR ANKLE GENERAL 3V AP/LAT/OBL RIGHT Radiology Routine Right ankle swelling 1 Occurrences starting 11/01/2024 until 12/01/2025 [facility] Work Phone: Comment on above: 1 Occurrences starting 11/01/2024 until 12/01/2025 XR Ankle - right AP and Lateral and oblique XR ANKLE GENERAL 3V AP/LAT/OBL RIGHT Radiology Routine Right ankle swelling 11/01/2024 2:21 PM EST [facility] XR Calcaneus - right 2 Views XR CALCANEUS 2V AXIAL/LAT RIGHT Radiology Routine Pain in joint involving right ankle and foot 09/19/2024 2:13 PM [facility] XR Foot - right AP a nd Lateral and oblique XR FOOT GENERAL 3V AP/LAT/OBL RIGHT Radiology Routine Pain in joint involving right ankle and foot 09/19/2024 2:13 PM EST [facility] Work Phone: End: 12-01-2025 XR Foot - right AP and Lateral and oblique XR FOOT GENERAL 3V AP/LAT/OBL RIGHT Radiology Routine Right ankle swelling 1 Occurrences starting 11/01/2024 until 12/01/2025 [facility] Comment on above: 1 Occurrences starting 11/01/2024 until 12/01/2025 XR Foot - right AP a nd Lateral and oblique XR FOOT GENERAL 3V AP/LAT/OBL RIGHT Radiology Routine Right ankle swelling 11/01/2024 2:21 PM EST [facility] Immunizations Immunization Date Immunization Notes Care Provider Fa [facility] 12-07-2017 influenza virus vacc ine, unspecified formulation Migdalia Cramer MD Work Phone: [facility] 12-01-2016 influenza, high dose seasonal, preservative-free Migdalia Cramer MD Work Phone: [facility] 10-22-2015 pneumococcal conjuga te vaccine, 13 valent Migdalia Cramer MD Work Phone: [facility] Work Phone: 08-15-2015 influenza, high dose seasonal, preservative-free Migdalia Cramer MD Work Phone: [facility] 01-22-2015 zoster vaccine, live Migdalia alfonso MD Work Phone: [facility] 09-18-2014 influenza, seasonal, injectable Migdalia Cramer MD Work Phone: [facility] Work Phone: 09-04-2013 influenza virus vacc ine, unspecified formulation Migdalia Cramer MD Work Phone: [facility] 08-23-2012 influenza virus vacc ine, unspecified formulation Migdalia Cramer MD Work Phone: [facility] Work Phone: 11-22-2011 pneumococcal polysaccharide vaccine, 23 valent Migdalia Cramer MD Work Phone: [facility] 09-15-2011 influenza virus vacc ine, unspecified formulation Migdalia Cramer MD Work Phone: [facility] 09-03-2010 influenza virus vacc ine, unspecified formulation Migdalia Cramer MD Work Phone: [facility] Payers Date Payer Category Payer Self-pay 2020 Medicare UHC MEDICARE UHC MEDICARE ADVANTAGE PPO [id number] 2020-Present [phone] [address] [address] [place] [address] PPO [id number] 2020 Medicare UHC MEDICARE UHC MEDICARE ADVANTAGE PPO [id number] 2020-Present [phone] [address] [address] [place] [address] PPO [id number] 2020 Medicare (Managed Care) [facility] CARE ADVANTAGE PPO [id number] 2020 Medicare [id number] Unknown [id number]. 2.462 Unknown [id number] 2.16.840.1.112518.3.579. 2.462 Unknown [id number] 2.16.840.1.006889.3.579. 2.462 Unknown [id number] 2.16.840.1.848089.3.579. 2.462 Unknown [id number] 2.16.840.1.256685.3.579. 2.462 Unknown [id number] 2.16.840.1.290582.3.579. 2.462 Unknown [id number] 2.16.840.1.915669.3.579. 2.462 Unknown [id number] 2.16.840.1.925371.3.579. 2.462 Unknown [id number] 2.16.840.1.901262.3.579. 2.462 Unknown [id number] 2.16.840.1.572378.3.579. 2.462 Unknown [id number] 2.16.840.1.026153.3.579. 2.462 Unknown [id number] 2.16.840.1.497059.3.579. 2.462 Unknown [id number] 2.16.840.1.400978.3.579. 2.462 Unknown [id number] 2.840.1.583134.3.579. 2.462 Unknown [id number] 2.840.1.194578.3.579. 2.462 Unknown [id number] 2.840.1.238560.3.579. 2.462 Unknown [id number] 2.840.1.775018.3.579. 2.462 Social History Date Type Detail Facility Start: 09-16-2011 End: 10-23-2022 Tobacco smoking status NHIS Never smoked tobacco [facility] Start: 10-15-2021 End: 02-13-2025 Alcohol intake Current non-drinker of alcohol (finding) [facility] Start: 09-10-2020 End: 03-08-2023 History SDOH Alcohol Frequency 1 [facility] Start: 09-10-2020 End: 09-16-2020 History SDOH Social Connections Phone 5 [facility] Start: 09-10-2020 End: 09-16-2020 History SDOH Social Connections Get Together 2 [facility] Start: 09-10-2020 History SDOH Social Connections Denominational 3 [facility] Start: 09-10-2020 History SDOH Social Connections Living 4 [facility] Start: 1935 Sex Assigned At Not on file [facility] Start: 11-09-2021 End: 12-09-2021 Exposure to SARS-CoV-2 (event) Unable to assess [facility] Start: 06-14-2021 End: 05-08-2022 Exposure to SARS-CoV-2 (event) Not sure [facility] Start: 09-16-2011 End: 10-23-2022 Tobacco use and exposure Smokeless tobacco non-user [facility] Start: 09-09-2020 End: 03-17-2023 History of Social function [facility] Start: 09-09-2020 End: 03-17-2023 Social connection and isolation panel [facility] Do you belong to any clubs or organizations such as orthodox groups, unions, fraternal or athletic groups, or school groups? Yes [facility] Are you now , , , , never or living with a partner? [facility] How often to you hav e a drink containing alcohol? Never [facility] Start: 10-15-2012 Average Number of Drinks Not on file [facility] Work Phone: Do you feel stress - tense, restless, nervous, or anxious, or unable to sleep at night because your mind is troubled all the time - these days [OSQ] Only a little [facility] (I/We) worried wheth er (my/our) food would run out before (I/we) got money to buy more. Never true [facility] Work Phone: In the past 12 month s, was there a time when you were not able to pay the mortgage or rent on time? No [facility] Tobacco smoking stat [facility] Unknown if ever smoked Work Phone: Start: 02-14-2025 End: 02-21-2025 Sex Female (finding) Start: 1935 Sex Assigned At Female [facility] Medical Equipment Procedure Code Equipment Code Equipment Origin al Text Equipment Identifier Dates [id number], [id number], [id number] Start: 2019 End: 08-21-2024 Comment on above: USE DIRECTED TO T EST BLOOD SUGARS 3 TIMES A DAY Test blood sugar onc e daily Functional Status Date Assessment Result Facility 12-12-2024 Are you deaf, or do you have serious difficulty hearing No 12/12/2024 1:12 PM Petrona Arreguin RN No [facility] 12-12-2024 Are you blind, or do you have serious difficulty seeing, even when wearing glasses No 12/12/2024 1:12 PM Petrona Arreguin RN No [facility] 12-12-2024 Do you have serious difficulty walking or climbing stairs No 12/12/2024 1:12 PM Petrona Arreguin RN No [facility] 12-12-2024 Do you have difficul ty dressing or bathing No 12/12/2024 1:12 PM Petrona Arreguin RN No [facility] 12-12-2024 Because of a physica l, mental, or emotional condition, do you have difficulty doing errands alone such as visiting a physician's office or shopping No 12/12/2024 1:12 PM Petrona Arreguin RN No [facility] 03-09-2023 Are you deaf, or do you have serious difficulty hearing Yes 03/09/2023 4:15 PM EDT Shannon Stringer RN Yes [facility] 03-09-2023 Are you blind, or do you have serious difficulty seeing, even when wearing glasses No 03/09/2023 4:15 PM EDT Shannon Stringer, LIT No [facility] 03-09-2023 Do you have serious difficulty walking or climbing stairs Yes 03/09/2023 4:15 PM EDT Shannon Stringer, LIT Yes [facility] 03-09-2023 Do you have difficul ty dressing or bathing Yes 03/09/2023 4:15 PM HENRIT Shannon Stringer, LIT Yes [facility] 03-09-2023 Because of a physica l, mental, or emotional condition, do you have difficulty doing errands alone such as visiting a physician's office or shopping Yes 03/09/2023 4:15 PM EDT Shannon Stringer RN Yes [facility] Mental Status Date Assessment Result Facility 12-12-2024 Because of a physica l, mental, or emotional condition, do you have serious difficulty concentrating, remembering, or making decisions No 12/12/2024 1:12 PM Petrona Arreguin RN No [facility] 03-09-2023 Because of a physica l, mental, or emotional condition, do you have serious difficulty concentrating, remembering, or making decisions Yes 03/09/2023 4:15 PM EDT Shannon Stringer RN Yes [facility] Clinical Notes 05-25-2017 to 05-28-2025 Telephone Encounter [...] rate 14 0-30 Report sent for scanning. [facility] 05-28-2025 Miscellaneous Notes Received results of labs done on 05/27/2025 from [facility] (abnormal results in bold): CRP <3.00 0.0-3.0 sed rate 14 0-30 Report sent for scanning. documented in this encounter [facility] 05-01-2025 Telephone encounter Note Received results of labs done on [facility] from 04/29/25 (abnormal results in bold): CRP 21.0 sed rate 32 Report sent for scanning. [facility] 05-01-2025 Miscellaneous Notes Received results of labs done on [facility] from 04/29/25 (abnormal results in bold): CRP 21.0 sed rate 32 Report sent for scanning. documented in this encounter [facility] 02-14-2025 Note [facility] 02-14-2025 History of Present illness Narrative Date of Visit: 02/13/2025 CHIEF COMPLAINT: Right ankle wound and RT heel pressure check SP OR right ankle incision and drainage and ulcer debridement 11/27/24 DM II, HgbA1c 10.4 (11/21/24) ADM 11/21/24-12/12/24 HISTORY OF PRESENT ILLNESS: Patient presents to the wound center for follow up since admission to [facility] 11/21/24 where she underwent RT [...] but mostly non ambulatory currently at [facility]. Denies N/V/F/C/D/SOB/CP/LP HX S/p RT ankle [...] by family members Home Care Company/Nursing Facility:[facility] Consent captured for debridement per Lien Bang DPM and good until July 2025 Anticoagulant Therapy: N/A Living Situation (ie... 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 Bang in 2 weeks - Continue [...] [facility] documented in this encounter [facility] 02-13-2025 Instructions Margie Steiner RN - 02/13/2025 1:29 PM EDT WOUND CARE INSTRUCTIONS- Yusuf Medina Wound location: Right Ankle [facility] HOME: - Wound Care Instructions: - Gather [...] for 1 additional month then stop Apply tubi-whiskey regauger D to bilateral lower legs Apply a Single layer tubi-whiskey regauger compression stocking to the right foot base [...] following changes to the Wound Center at [phone] or go to the Emergency Department: Fever or chills Increased drainage Green or yellow drainage Foul odor Increased pain Hardness around the wound Redness, warmth or swelling of the surrounding tissue Color change to the wound When contacting the wound center at the ([phone]): Leave a message that includes your full [...] emergency department. PLAN/ORDERS: - Return to the [facility] for a follow-up with supervisor production managing Dr. Bang in 2 weeks - Continue [...] Lien Bang DPM/osvaldo/fhm documented in this encounter [facility] 02-13-2025 Note [facility] 02-11-2025 Telephone encounter Note Received results of labs done on 02/04/2025 from [facility] (abnormal results in bold): sed rate 23 0-30 Report sent for scanning. [facility] 02-11-2025 Miscellaneous Notes Received results of labs done on 02/04/2025 from [facility] (abnormal results in bold): sed rate 23 0-30 Report sent for scanning. documented in this encounter [facility] 01-18-2025 Telephone encounter Note Noted Willie Kaur APRN.CNP [facility] 01-18-2025 Miscellaneous Notes Noted Willie Kaur APRN.CNP [...] fax recently received indicates the SNF is [phone]. Please call the facility that she is [...] alf. Please reach out to her at [phone] Attempted to contact celeste Augustin with no success. Left VM requesting call back. If relative returns call, please clarify prescription. Images from the original note were not included. Pended med is Pravastatin (Pravachol). [facility] med list indicates atorvastatin (Lipitor). Please clarify [...] Jame Hernandez MA documented in this encounter [facility] 01-18-2025 Telephone encounter Note Contacted [facility] spoke with Gabbie (nurse), I asked to clarify patient's medication or send updated med list. She states We don't need anything from you She's living here permanently & uses primary care in-house doc. No further information was given or obtained. [facility] 01-18-2025 Telephone encounter Note Chart indicates that she is at [facility], phone number on a fax recently received indicates the SNF is [phone]. Please call the facility that she is at to verify which cholesterol medicine she is taking since caregiver Demetria is not currently in chare of medication administration and can't clarify pravachol vs lipitor. Thank you. Willie Kaur APRN.CNP/ [facility] 01-17-2025 Telephone encounter Note Relative Demetria states the patient is in a alf now, so she needs someone to reach out to her because she states they are giving her different medications at the alf. Please reach out to her at [phone] [facility] 01-17-2025 Telephone encounter Note Attempted to contact relative Demetria with no success. Left VM requesting call back. If relative returns call, please clarify prescription. [facility] 01-17-2025 Note [facility] 01-17-2025 History of Present illness Narrative Date of Visit: 01/16/2025 CHIEF COMPLAINT: Right ankle wound and RT heel pressure check SP OR right ankle incision and drainage and ulcer debridement 11/27/24 DM II, HgbA1c 10.4 (11/21/24) ADM 11/21/24-12/12/24 HISTORY OF PRESENT ILLNESS: Patient presents to the wound center for follow up since admission to [facility] 11/21/24 where she underwent RT [...] negative pressure. To continue wound vac at [place]. Removed vac dressing and debrided wound today. [...] tubigrip every other day. She is at [facility] can WB AT continue offloading right heel, [...] by family members Home Care Company/Nursing Facility:[facility] Consent captured for debridement per Lien Bang DPM and good until July 2025 Anticoagulant Therapy: N/A Living Situation (ie... 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 DME: Facility SPECIAL NEEDS: Coordination of care N/A Emotional support N/A OR set-up N/A Armature Winder Repair Helper N/A Incontinence needs N/A DISCHARGED in stable condition to: Arrived via wheelchair accompanied by family & aide PLAN/ORDERS: - Return to the [facility] for a follow-up with supervisor production managing Dr. Bang in 2 weeks - Follow-up [...] Nanette Welch RN/fm documented in this encounter [facility] 01-17-2025 Telephone encounter Note Images from the original note were not included. Pended med is Pravastatin (Pravachol). Epic med list indicates atorvastatin (Lipitor). Please clarify which patient is taking. Willie Kaur APRN.DRAKE [facility] 01-16-2025 Telephone encounter Note Patient has been [...] Please review and advise. Jame Hernandez MA [facility] 01-16-2025 Instructions Nanette Welch RN - 01/16/2025 1:12 PM EST WOUND CARE INSTRUCTIONS- Yusuf Medina Wound location: Right Ankle [facility] HOME: - Please re-apply wound VAC today [...] the wound base. - Cover with 4x4 Lester SAP bordered foam or equivalent dressing. - Change your dressing every other day or as needed to maintain a clean, dry and intact dressing. Apply a Single layer tubi-whiskey regauger compression stocking to the right foot base [...] following changes to the Wound Center at [phone] or go to the Emergency Department: Fever or chills Increased drainage Green or yellow drainage Foul odor Increased pain Hardness around the wound Redness, warmth or swelling of the surrounding tissue Color change to the wound When contacting the wound center at the ([phone]): Leave a message that includes your full [...] emergency department. PLAN/ORDERS: - Return to the [facility] for a follow-up with supervisor production managing Dr. Bang in 2 weeks - Follow-up [...] Bang DPM /mh/fm documented in this encounter [facility] 01-16-2025 Note [facility] 01-08-2025 Telephone encounter Note Per Alon-- Labs rev [place] stop date today PICC removal in the [...] the picc line after the last dose. [facility] 01-08-2025 Miscellaneous Notes Per Alon-- Labs rev [place] stop date today PICC removal in the SNF Follow up prn The notes went back to the ECF for them to remove the picc line after tonight's last dose The MAINTENANCE MANAGERMercedes, called to see if the picc line can be removed. I called her back and left a VM that yes, Alon did give orders at today's appt to remove the picc line after the last dose. Yusuf has an appt today with Alon at [facility]. She's currently on Cefazolin 2g iv [...] to the nurse, Gabbie, naveen requested Dec 17 labs wnl The differential wasn't done on the cbc The MAINTENANCE MANAGER has added it on moving forward The results were attached to the M drive Spoke to the MAINTENANCE MANAGER, labs requested Lilo from [facility] called [phone] to schedule the follow up, I gave her the [facility] number and 01/08 for the schedule date. Delfina Elias Yusuf is still inpt at [facility] She will be d/c to [facility] [phone] Summary: COPAT ACTION-FOR IDC USE ONLY Images from the original note were not included. 11/28/2024 8:48 PM Pierce Chi CO PROVIDER ADULT [id number] Patient Info Patient Name Sex Yusuf Medina ([id number]) Female 1935 Encounter Notes Progress Notes by Pierce Chi MD, encounter date 11/28/2024: Progress Notes [facility] Outpatient Parenteral Antimicrobial Therapy (OPAT) Start Form Patient Info Patient MRN Patient Name Address Date of [id number] Yusuf Medina [address] [facility] [id number] 1935 Start Date 11/28/2024 Physician Group [facility] [...] Monitoring Treatment Course Pierce Chi MD Address [address] [place] [address] Prescribing Provider's signature - electronically signed by Pierce Chi MD on 11/28/24 at 8:50 PM documented in this encounter [facility] 01-08-2025 Note [facility] 01-08-2025 History of Present illness Narrative [...] or type II) CATIE PLAN: Labs rev [place] stop date today PICC removal in the [...] by family members Home Care Company/Nursing Facility:[facility] Consent captured for debridement per Lien Bang DPM and alex until December 2024 Anticoagulant Therapy: N/A Living Situation (ie... 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 Bang on January 16 at 1:00 [...] - Please follow-up with your PCP or sales professional about your elevated blood pressure readings. - [...] Cinthia Dao RN/TC documented in this encounter [facility] 01-08-2025 Instructions Cinthia Dao RN - 01/08/2025 12:51 PM EST WOUND CARE INSTRUCTIONS- Yusuf Medina Wound location: Right Ankle [facility] HOME: - Please re-apply wound [...] following changes to the Wound Center at [phone] or go to the Emergency Department: Fever or chills Increased drainage Green or yellow drainage Foul odor Increased pain Hardness around the wound Redness, warmth or swelling of the surrounding tissue Color change to the wound When contacting the wound center at the ([phone]): Leave a message that includes your full [...] emergency department. PLAN/ORDERS: - Return to the [facility] for a follow-up with supervisor production managing Dr. Bang on January 16 at 1:00 [...] - Please follow-up with your PCP or sales professional about your elevated blood pressure readings. - If you have any questions or concerns that cannot be answered with the following information, please follow the instructions listed above on how to contact the wound center. Pierce Chi MD/ALANA/TC documented in this encounter [facility] 01-08-2025 Note [facility] 01-08-2025 Telephone encounter Note Yusuf has an appt today with Alon at [facility]. She's currently on Cefazolin 2g iv q8 with a stop date for today. [facility] 01-07-2025 Telephone encounter Note Jan 07 labs reviewed, no changes The creat was never done The results were attached to the M drive [facility] 01-04-2025 Telephone encounter Note Received record release from [facility]. Faxed to number provided on form, confirmation fax received. [facility] 01-04-2025 Miscellaneous Notes Received record release from [facility]. Faxed to number provided on form, confirmation fax received. The initial note indicates that a membership sales representative is calling and gave return phone number [phone]. I called this number and phone rang and rang numerous times. No voice mail. I can print of POA, stamp and fax since this is a facility to facility request. Given to nursing. If the membership sales representative needs anything else and calls back, Please ask for name and direct line so that return call can be made. Thank you. Willie Kaur APRN.TOWER SWITCH OPERATOR Spoke with a clinical secretary at [facility], he took the info again to get us a signed records release faxed to the office. Please watch for fax Please advise [facility] that if patient signs record release, they can get any records they need from [facility] medical records. Or family can sign record request at alf and alf can fax Family Medicine the records request and I can send what I can. Our fax is [phone]. Willie Kaur APRN.CNP Records release was not signed. Please review and advice. Received call from [facility]. The membership sales representative has appointment with patient's sons this afternoon at 2 pm and is requesting Advanced Directive/POA paperwork that was scanned in on 12/31. Advised to send records request, but she is concerned about not having this paperwork by 2 pm meeting. Electro Mechanical Technician can be reached at [phone]. Fax number given for records request as well. documented in this encounter [facility] 01-04-2025 Telephone encounter Note The initial note indicates that a membership sales representative is calling and gave return phone number [phone]. I called this number and phone rang and rang numerous times. No voice mail. I can print of POA, stamp and fax since this is a facility to facility request. Given to nursing. If the membership sales representative needs anything else and calls back, Please ask for name and direct line so that return call can be made. Thank you. Willie Kaur APRN.TOWER SWITCH OPERATOR [facility] 01-04-2025 Telephone encounter Note Spoke with a clinical secretary at [facility], he took the info again to get us a signed records release faxed to the office. Please watch for fax [facility] 01-04-2025 Telephone encounter Note Please advise [facility] that if patient signs record release, they can get any records they need from [facility] medical records. Or family can sign record request at alf and alf can fax Family Medicine the records request and I can send what I can. Our fax is [phone]. Willie Kaur APRN.DRAKE [facility] 01-04-2025 Note HNO ID: [id number] Author: TYESHA SINGLETON MD Service: ? Author [...] with dramatic improvement Currently she is in [place] and here with AVELINA and nurse aid who gives the history Currently she is pain free Also spoke with her nurse at [place] who states patient does nto complain of pain, pretty sedentary. No specific complaints at [place] per nurse Currently doing well, no pain at present Family states after debridement of rt ankle- patient feels weak and does not want to walk around Was living alone until 2 months ago and now at [place]. Prior to debridement , patient was not [...] L REMV CATARACT EXTRACAP,INSERT LENS Bilateral 2020 [facility] predniSONE (DELTASONE) 5 mg tablet Take [...] Sister None B (more content not included)... [facility] 01-04-2025 History of Present illness [...] with dramatic improvement Currently she is in [place] and here with AVELINA and nurse aid who gives the history Currently she is pain free Also spoke with her nurse at [place] who states patient does nto complain of pain, pretty sedentary. No specific complaints at [place] per nurse Currently doing well, no pain at present Family states after debridement of rt ankle- patient feels weak and does not want to walk around Was living alone until 2 months ago and now at [place]. Prior to debridement , patient was not [...] LENS Bilateral 2020 [facility] predniSONE (DELTASONE) 5 mg tablet Take 5 [...] every day prn -written instructions given to NH as well as verbal instructions to family and nurse who is taking care of her at [place] 2. Rt ankle cellulitis and osteomyelitis -currently [...] Swollen Glands: No documented in this encounter [facility] 01-03-2025 Telephone encounter Note Records release was not signed. Please review and advice. [facility] 01-03-2025 Telephone encounter Note Received call from [facility]. The membership sales representative has appointment with patient's sons this afternoon at 2 pm and is requesting Advanced Directive/POA paperwork that was scanned in on 12/31. Advised to send records request, but she is concerned about not having this paperwork by 2 pm meeting. Electro Mechanical Technician can be reached at [phone]. Fax number given for records request as well. [facility] 01-02-2025 Telephone encounter Note SOCIAL WORK Date of Service: Thursday January 02, 2025 [facility] Food And Nutrition Professor (SW) Aditi Lopez attempted to contact Yusuf Medina by phone using interpreter deaf services to complete the distress assessment. Yusuf [...] Yusuf will most likely not understand the Yemeni interpreter deaf because she speaks a different dialect. At this time, social work service is declined/deferred based on: she pt is at a SNF and family member completed the questionnaire. Please re-consult social work if any other psychosocial needs arise. Unable To Reach Patient PLAN: Follow up on an as needed basis ALEJANDRO Encarnacion [facility] Work Phone: 01-02-2025 Miscellaneous Notes SOCIAL WORK Date of Service: Thursday January 02, 2025 [facility] Food And Nutrition Professor (SW) Aditi Lopez attempted to contact Yusuf Medina by phone using interpreter deaf services to complete the distress assessment. Yusuf [...] Yusuf will most likely not understand the Yemeni interpreter deaf because she speaks a different dialect. At this time, social work service is declined/deferred based on: she pt is at a SNF and family member completed the questionnaire. Please re-consult social work if any other psychosocial needs arise. Unable To Reach Patient PLAN: Follow up on an as needed basis ALEJANDRO Encarnacion documented in this encounter [facility] 01-02-2025 Instructions Grupo Mendez MD - 01/02/2025 9:19 AM EST Hemoglobin was low at 7.8 Obtaining repeat lab to determine if blood transfusion needed and if needs nutrient support for anemia Recommend repeating blood counts once weekly for next 6 weeks starting next week Please schedule follow-up with Dr. Mendez in 7 weeks For scheduling questions, please call [phone] (tests and appointments). Ask for the oncology relationship banker. For symptom management or care coordination questions, please call Renetta at [phone] or use my chart to reach us. After hours with medical questions, please call the doctor on-call at [phone]. Thank you, Grupo Mendez MD documented in this encounter [facility] 01-02-2025 Note HNO ID: [id number] Author: GRUPO MENDEZ MD Service: ? Author [...] LENS Bilateral 2020 [facility] FAMILY HISTORY Problem Relation Age [...] (3 mL) I (more content not included)... [facility] 01-02-2025 History of Present illness [...] L REMV CATARACT EXTRACAP,INSERT LENS Bilateral 2020 [facility] FAMILY HISTORY Problem Relation Age of [...] Range Status 01/02/2025 5.9 % Final Abs Towner Date Value Ref Range Status 01/02/2025 0.61 [...] today's encounter, 01/02/2025) documented in this encounter [facility] 2024 Telephone encounter Note Dec 31 labs reviewed, no changes The results were attached to the M drive [facility] 12-27-2024 Note [facility] 12-27-2024 History of Present illness Narrative Date of Visit: 12/26/2024 CHIEF COMPLAINT: Right ankle wound and NEW RT heel pressure ulcer OR right ankle incision and drainage and ulcer debridement 11/27/24 DM II, HgbA1c 10.4 (11/21/24) ADM 11/21/24-12/12/24 HISTORY OF PRESENT ILLNESS: Patient presents to the wound center for first follow up since admission to [facility] 11/21/24 where she underwent RT [...] but mostly non ambulatory currently at [facility]. Denies N/V/F/C/D/SOB/CP/LP HX S/p RT ankle [...] negative pressure. To continue wound vac at [place]. Removed vac dressing and debrided wound today. [...] unsuccessful, became inflamed and infected. Patient arrived via:[facility]/Nursing Facility:[facility] rehab until 01/08 for IV abx Consent captured for debridement per Lien Bang DPM and good until December 2024. Special Instructions (for example, patient stands at the bedside for exam/dressing): Anticoagulant Therapy:n/a Living Situation (ie... 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 Provider seeing patient:Lien Alex DPM __ WOUND ASSESSMENT: Refer to Provider's [...] order date DME: [employer] , PH: [phone] SPECIAL NEEDS: Coordination of care N/A Emotional support N/A OR set-up N/A Armature Winder Repair Helper N/A Incontinence needs N/A DISCHARGED in stable [...] to ANY of questions 5-9, consult the [facility] Sravanthi Hollis RN/TC documented in this encounter [facility] 12-26-2024 Telephone encounter Note Noted Willie Kaur APRN.CNP [facility] 12-26-2024 Miscellaneous Notes Noted Willie Kaur APRN.CNP [...] caregiver demetria tapia calling to have her Swarm64 message she sent below addressed. Travis, Yusuf's sons and are in town to make an assessment whether she is able to go home from rehab. Can you talk with them to help with their decision? Please call Nathaniel Medina at [phone]. They are here till Tuesday 12 noon. Thank you. documented in this encounter [facility] 12-26-2024 Telephone encounter Note Contacted son Nathaniel--advised [...] a POA to act on pt's behalf [facility] 12-26-2024 Telephone encounter Note Dec 24 labs reviewed, no changes The results were attached to the M drive [facility] 12-26-2024 Telephone encounter Note Addressed in other encounter. Willie Kaur APRN.CNP [facility] 12-26-2024 Miscellaneous Notes Addressed in other encounter. Willie Kaur APRN.TOWER SWITCH OPERATOR documented in this encounter [facility] 12-26-2024 Instructions Sravanthi Hollis RN - 12/26/2024 1:09 PM EST WOUND CARE INSTRUCTIONS- Yusuf Niñokimber Wound location: Right ankle [facility] -PLEASE CONTINUE WOUND VAC PREVIOUS ON [...] following changes to the Wound Center at [phone] or go to the Emergency Department: Fever or chills Increased drainage Green or yellow drainage Foul odor Increased pain Hardness around the wound Redness, warmth or swelling of the surrounding tissue Color change to the wound When contacting the wound center at the ([phone]): Leave a message that includes your full [...] to be scheduled through Central Scheduling. Call [phone].(If applicable) Please be aware that the Covid19 exposure questions will be asked as you enter the hospital and as you arrive to each area. Thank you for your patience and understanding as we attempt to protect our patients during this difficult time. Lien Bang DPM/patrick/tc documented in this encounter [facility] 12-26-2024 Note [facility] 12-26-2024 Telephone encounter Note I wish [...] for discharge. Willie Kaur APRN.CNP [facility] 12-26-2024 Telephone encounter Note Spoke to the nurse, naveen Cartwright requested [facility] 12-26-2024 Telephone encounter Note Patients caregiver demetria tapia calling to have her Swarm64 message she sent below addressed. Yusuf Robles's sons and are in town to make an assessment whether she is able to go home from rehab. Can you talk with them to help with their decision? Please call Nathaniel Medina at [phone]. They are here till Tuesday 12 noon. Thank you. [facility] Work Phone: 12-25-2024 Telephone encounter Note The following approved medication requests have been transmitted electronically. Requested Prescriptions Signed Prescriptions Disp Refills amLODIPine (NORVASC) 5 mg tablet 90 tablet 3 Sig: TAKE 1 TABLET BY MOUTH ONCE DAILY Authorizing Provider: WILLIE KAUR APRN.CNP [facility] 12-25-2024 Miscellaneous Notes The following approved medication [...] Aditi Phan LPN documented in this encounter [facility] 12-25-2024 Telephone encounter Note Patient has been [...] Please review and advise. Aditi Phan LPN [facility] 12-20-2024 Telephone encounter Note Dec 17 labs wnl The differential wasn't done on the cbc The MAINTENANCE MANAGER has added it on moving forward The results were attached to the M drive [facility] 12-20-2024 Telephone encounter Note Spoke to the MAINTENANCE MANAGERnaveen requested [facility] 12-13-2024 Telephone encounter Note Lilo from [facility] called [phone] to schedule the follow up, I gave her the [facility] number and 01/08 for the schedule date. Delfina Elias [facility] 12-11-2024 Note [facility] 12-10-2024 Telephone encounter Note Yusuf is still inpt at [facility] She will be d/c to [facility] [phone] [facility] 12-10-2024 Note [facility] 12-10-2024 Note [facility] 12-09-2024 Note [facility] 12-09-2024 Note [facility] 12-08-2024 Note [facility] 12-07-2024 Note [facility] 12-07-2024 Note [facility] 12-06-2024 Note [facility] 12-05-2024 Note [facility] 12-04-2024 Note [facility] 12-03-2024 Note [facility] 12-02-2024 Note [facility] 12-01-2024 Note [facility] 12-01-2024 Note [facility] 12-01-2024 Note [facility] 11-30-2024 Note [facility] 11-29-2024 Note [facility] 11-29-2024 Telephone encounter Note Summary: COPAT ACTION-FOR IDC USE ONLY Images from the original note were not included. 11/28/2024 8:48 PM Pierce Chi CO PROVIDER ADULT [id number] Patient Info Patient Name Sex Yusuf Medina ([id number]) Female 1935 Encounter Notes Progress Notes by Pierce Chi MD, encounter date 11/28/2024: Progress Notes [facility] Outpatient Parenteral Antimicrobial Therapy (OPAT) Start Form Patient Info Patient MRN Patient Name Address Date of [id number] Yusuf Medina [address] [facility] [id number] 1935 Start Date 11/28/2024 [facility] [...] Monitoring Treatment Course Pierce Chi MD Address [address] [place] [address] Prescribing Provider's signature - electronically signed by Pierce Chi MD on 11/28/24 at 8:50 PM [facility] 11-29-2024 Note [facility] 11-28-2024 Note [facility] 11-28-2024 History of Present illness Narrative Images from the original note were not included. [facility] Outpatient Parenteral Antimicrobial Therapy (OPAT) Start Form Patient Info Patient MRN Patient Name Address Date of [id number] Yusuf Medina [id number] [id number] 1935 Start Date 11/28/2024 [facility] [...] Monitoring Treatment Course Pierce Chi MD Address [address] [place] [address] Prescribing Provider's signature - electronically signed by Pierce Chi MD on 11/28/24 at 8:50 PM documented in this encounter [facility] 11-28-2024 Note [facility] 11-28-2024 Note [facility] 11-27-2024 Telephone encounter Note The following approved medication requests have been transmitted electronically. Requested Prescriptions Signed Prescriptions Disp Refills metFORMIN (GLUCOPHAGE) 850 mg tablet 180 tablet 3 Sig: TAKE 1 TABLET BY MOUTH TWICE DAILY WITH MEALS Authorizing Provider: WILLIE KAUR APRN.TOWER SWITCH OPERATOR [facility] 11-27-2024 Miscellaneous Notes The following approved medication [...] Martina Tucker MA documented in this encounter [facility] 11-27-2024 Note [facility] 11-27-2024 Telephone encounter Note Patient has [...] Please review and advise. Martina Tucker MA [facility] 11-26-[address] Mendez reviewed labs from [facility]. Dr. Mendez recommended for patient to be seen around mid Dec 2024 as hem/onc follow-up. Grupo Mendez MD November 26, 2024 5:33 PM [facility] Work Phone: 11-26-[address] Mendez reviewed labs from [facility]. Dr. Mendez recommended for patient to be seen around mid Dec 2024 as hem/onc follow-up. Grupo Mendez MD November 26, 2024 5:33 PM Spoke w/ pt tube makerDemetria. Pt is still inpatient. When she is discharged she will be sent to a rehab and will not be able to make appts. Any time soon. Please advise for further requirements. documented in this encounter [facility] 11-26-2024 Note [facility] 11-26-2024 Telephone encounter Note Spoke w/ pt tube makerDemetria. Pt is still inpatient. When she is discharged she will be sent to a rehab and will not be able to make appts. Any time soon. Please advise for further requirements. [facility] 11-26-2024 Note [facility] 11-25-2024 Note [facility] 11-24-2024 Note [facility] 11-23-2024 Note [facility] 11-23-2024 Note [facility] 11-22-2024 Note [facility] 11-21-2024 Note [facility] 11-21-2024 Telephone encounter Note Currently has appointment in Rheumatology 01/04/25 to evaluate for inflammatory arthritis. There was a Hematology appointment scheduled 12/03/24, but rescheduled by family due to location. MRI ankle 11/19/24 ordered by Orthopedics. Patient sent My Chart message to Orthopedics 11/20/24. I reminded patient/family that My Chart can take up to 72 business hours for response. Willie Kaur APRN.TOWER SWITCH OPERATOR [facility] 11-21-2024 Miscellaneous Notes Currently has appointment in [...] Willie Kaur APRN.DRAKE documented in this encounter [facility] 11-19-2024 History of Present illness Narrative Radiology [...] PATIENT PRESENTS WITH AN IMPLANTABLE OR ATTACHED ORACLE IAM CONSULTANT: No RADIOLOGY DEPARTMENT: MR; Exam(s) Completed: Lower MSK: Ankle/Hind Foot, right PERIPHERAL IV DATA: Not applicable SIGNED BY: FRANCIS Tierney November 19, 2024 10:07 AM documented in this encounter [facility] 11-19-2024 Note HNO ID: [id number] Author: YAZ MAYFIELD MRI Tech Service: Radiology Author Type: Security Chief Museum Type: Progress Notes Filed: 11/19/2024 10:08 Note [...] PATIENT PRESENTS WITH AN IMPLANTABLE OR ATTACHED ORACLE IAM CONSULTANT: No RADIOLOGY DEPARTMENT: MR; Exam(s) Completed: Lower MSK: Ankle/Hind Foot, right PERIPHERAL IV DATA: Not applicable SIGNED BY: Yaz Mayfield sports cartoonist November 19, 2024 10:07 AM [facility] 11-06-2024 Telephone encounter Note Patient took a sooner appt in November. [facility] 11-06-2024 Miscellaneous Notes Patient took a sooner appt in November. Currently has Rheumatology scheduled 01/04/25. Are there any sooner appointments and would family be interested? She has been seeing Hematology and they think that her abnormal blood work may have a Rheumatology cause. Willie Kaur APRN.CNP documented in this encounter [facility] 11-06-2024 Telephone encounter Note Currently has Rheumatology scheduled 01/04/25. Are there any sooner appointments and would family be interested? She has been seeing Hematology and they think that her abnormal blood work may have a Rheumatology cause. Willie Kaur APRN.CNP [facility] 11-05-2024 Telephone encounter Note Patient has secondary leukocytosis in the setting of highly elevated sed rate, RUBEN 1:320 titer, positive FILLETER Hematology work-up was essentially negative highlighting concern [...] Mendez MD November 05, 2024 6:55 PM [facility] 11-05-2024 Miscellaneous Notes Patient has secondary leukocytosis in the setting of highly elevated sed rate, RUBEN 1:320 titer, positive FILLETER Hematology work-up was essentially negative highlighting concern [...] 2024 6:55 PM documented in this encounter [facility] 11-01-2024 Note Addended by: SIMONE AGUILAR on: 11/01/2024 03:34 PM Modules accepted: Orders [facility] 11-01-2024 Miscellaneous Notes Addended by: SIMONE KEVIN on: 11/01/2024 03:34 PM Modules accepted: Orders documented in this encounter [facility] 11-01-2024 Note HNO ID: [id number] Author: SIMONE KEVIN MD Service: ? Author [...] L REMV CATARACT EXTRACAP,INSERT LENS Bilateral 2020 [facility] Family History: FAMILY HISTORY Problem Relation Age of Onset None Brother None Sister None Brother Medications: Current Outpatient Medications Medication Sig meloxicam (MOBIC) 15 mg tablet TAKE 1 TABLET BY MOUTH ONCE DAILY NEEDED FOR PAIN. DO NOT COMBINE WITH DICLOFENAC GEL traZODone (DESYREL) 50 mg tablet Take 1 tablet by mouth at bedtime as needed for sedation. blood sugar diagnostic (Who is Undercover SpyTOUCH ULTRA TEST) test strip Test blood sugar [...] her anatomy B (more content not included)... [facility] 11-01-2024 History of Present illness [...] L REMV CATARACT EXTRACAP,INSERT LENS Bilateral 2020 [facility] Family History: FAMILY HISTORY Problem Relation Age of Onset None Brother None Sister None Brother Medications: Current Outpatient Medications Medication Sig meloxicam (MOBIC) 15 mg tablet TAKE 1 TABLET BY MOUTH ONCE DAILY NEEDED FOR PAIN. DO NOT COMBINE WITH DICLOFENAC GEL traZODone (DESYREL) 50 mg tablet Take 1 tablet by mouth at bedtime as needed for sedation. blood sugar diagnostic (Who is Undercover SpyTOUCH ULTRA TEST) test strip Test blood sugar [...] next visit: No P[place]: [place] [id number] [facility] [id number] FELLOW / RESIDENT: No fellow or resident assisted in this office visit. Simone Kevin MD documented in this encounter [facility] 10-29-2024 Note HNO ID: [id number] Author: AB BENSON MD Service: ? Author Type: Physician Type: Progress Notes Filed: 11/04/2024 19:29 Note Text: This note was created using TeraDioderiter. Subjective Yusuf Medina is a 88 year [...] and family voiced understanding. Ab Benson MD [facility] 10-29-2024 History of Present illness Narrative Images from the original note were not included. This note was created using Meetylter. Subjective Yusuf Medina is a 88 year [...] Ab Benson MD documented in this encounter [facility] 10-12-2024 Telephone encounter Note The following approved medication requests have been transmitted electronically. Requested Prescriptions Signed Prescriptions Disp Refills meloxicam (MOBIC) 15 mg tablet 90 tablet 3 Sig: TAKE 1 TABLET BY MOUTH ONCE DAILY NEEDED FOR PAIN. DO NOT COMBINE WITH DICLOFENAC GEL Authorizing Provider: WILLIE KAUR APRN.CNP [facility] 10-12-2024 Miscellaneous Notes The following approved medication [...] Martina Tucker MA documented in this encounter [facility] 10-12-2024 Telephone encounter Note Patient has been [...] Please review and advise. Martina Tucker MA [facility] 09-20-2024 History of Present illness Narrative September [...] LENS Bilateral 2020 [facility] Family History: FAMILY HISTORY Problem Relation Age of Onset None Brother None Sister None Brother Medications: Current Outpatient Medications Medication Sig traZODone (DESYREL) 50 mg tablet Take 1 tablet by mouth at bedtime as needed for sedation. blood sugar diagnostic (Who is Undercover SpyTOUCH ULTRA TEST) test strip Test blood sugar [...] next visit: No [place]CP: [place] [address] [facility] [id number] FELLOW / RESIDENT: No fellow or resident assisted in this office visit. Simone Kevin MD documented in this encounter [facility] 09-20-2024 Note HNO ID: [id number] Author: SIMONE KEVIN MD Service: ? Author [...] L REMV CATARACT EXTRACAP,INSERT LENS Bilateral 2020 [facility] Family History: FAMILY HISTORY Problem Relation Age of Onset None Brother None Sister None Brother Medications: Current Outpatient Medications Medication Sig traZODone (DESYREL) 50 mg tablet Take 1 tablet by mouth at bedtime as needed for sedation. blood sugar diagnostic (Who is Undercover SpyTOUCH ULTRA TEST) test strip Test blood sugar [...] May have so (more content not included)... [facility] 09-19-2024 History of Present illness [...] PATIENT PRESENTS WITH AN IMPLANTABLE OR ATTACHED ORACLE IAM CONSULTANT: No RADIOLOGY DEPARTMENT: General X-ray: Exam(s) Completed: Lower Extremity X-Ray(s): Foot, Right and Wt. Bearing and Heel, Right and Wt. Bearing PERIPHERAL IV DATA: Not applicable SIGNED BY: RUT Hui September 19, 2024 2:13 PM documented in this encounter [facility] 09-19-2024 Note HNO ID: [id number] Author: ZAID KUHN CT Service: Radiology Author [...] PATIENT PRESENTS WITH AN IMPLANTABLE OR ATTACHED ORACLE IAM CONSULTANT: No RADIOLOGY DEPARTMENT: General X-ray: Exam(s) Completed: Lower Extremity X-Ray(s): Foot, Right and Wt. Bearing and Heel, Right and Wt. Bearing PERIPHERAL IV DATA: Not applicable SIGNED BY: RUT Hui September 19, 2024 2:13 PM [facility] 09-18-2024 Telephone encounter Note Results were reviewed. I spoke with [id number] Demetria about suspicion for calcaneal bone fracture. Orders Signed This Visit (1) CONSULT PANEL TO ORTHOPAEDICS STAT, Dx: 1. Right ankle swelling 2. Closed nondisplaced fracture of right calcaneus, unspecified portion of calcaneus, initial encounte Grupo Mendez MD September 18, 2024 9:19 PM [facility] 09-18-2024 Miscellaneous Notes Results were reviewed. I spoke with [id number] Demetria about suspicion for calcaneal bone fracture. Orders Signed This Visit (1) CONSULT PANEL TO ORTHOPAEDICS STAT, Dx: 1. Right ankle swelling 2. Closed nondisplaced fracture of right calcaneus, unspecified portion of calcaneus, initial encounte Grupo Mendez MD September 18, 2024 9:19 PM documented in this encounter [facility] 09-18-2024 History of Present illness Narrative Radiology [...] PATIENT PRESENTS WITH AN IMPLANTABLE OR ATTACHED ORACLE IAM CONSULTANT: No RADIOLOGY DEPARTMENT: Ultrasound PERIPHERAL IV DATA: Not applicable SIGNED BY: Christina Tucker RDMS September 18, 2024 8:37 AM documented in this encounter [facility] 09-18-2024 Note [facility] 09-17-2024 Telephone encounter Note This was addressed in hematology appointment in [place]. Closing this encounter [facility] 09-17-2024 Miscellaneous Notes This was addressed in hematology appointment in [place]. Closing this encounter Vm left for patient's son. She has an appointment today in [place]-can Yusuf go to express care there after hematology? documented in this encounter [facility] 09-17-2024 Instructions Grupo Mendez MD - 09/17/2024 3:52 PM EST Please schedule Xray right ankle today Please schedule STAT US DVT right lower leg tomorrow Please send patient to lab today For scheduling questions, please call [phone] (tests and appointments). Ask for the oncology relationship banker. For symptom management or care coordination questions, please call Renetta Holder at [phone] or use my chart to reach us. After hours with medical questions, please call the doctor on-call at [phone]. Thank you, Grupo Mendez MD documented in this encounter [facility] 09-17-2024 History of Present illness Narrative Consultation [...] LENS Bilateral [facility] [facility] FAMILY HISTORY Problem Relation Age [...] as needed for sedation. blood sugar diagnostic (DezideUCH ULTRA TEST) test strip Test blood sugar [...] Range Status 09/17/2024 5.5 % Final Abs [place] Date Value Ref Range Status 09/17/2024 0.52 [...] Migdalia Ortiz MD documented in this encounter [facility] 09-17-2024 Note HNO ID: [id number] Author: GRUPO MENDEZ MD Service: ? Author [...] LENS Bilateral 2020 [facility] FAMILY HISTORY Problem Relation Age [...] ONCE DAILY metFORMIN (more content not included)... [facility] 09-17-2024 Telephone encounter Note Vm left for patient's son. She has an appointment today in [place]-can Yusuf go to express care there after hematology? [facility] 09-13-2024 Note HNO ID: [id number] Author: MIGDALIA CRAMER MD Service: ? Author [...] panel in 6 months Migdalia Cramer MD [facility] 09-13-2024 History of Present illness [...] Migdalia Cramer MD documented in this encounter [facility] 09-13-2024 Instructions Migdalia Cramer MD - 09/13/2024 [...] review all the medicines you take, even bdef-blt-srgbzwd medicines. As you get older, the way [...] certain medical conditions. documented in this encounter [facility] 09-04-2024 Telephone encounter Note Patient has been scheduled for 09/17 Thank you [facility] 09-04-2024 Miscellaneous Notes Patient has been scheduled for 09/17 Thank you Please contact the patient's xixhgh-qq-var Demetria at [phone] to assist with scheduling a consult with [...] recommend we get a consultation with a strip deburrer, a blood specialist. I put an order in for a consultation and will ask a relationship banker to contact you to get it set up. We just want to make sure there is nothing serious going on that we should be more concerned about. Migdalia Cramer MD documented in this encounter [facility] 09-04-2024 Telephone encounter Note Please contact the patient's fvumso-wu-gqj Demetria at [phone] to assist with scheduling a consult with hematology/oncology for a high white blood cell count. I sent a barcoo message today about test results: Rhys Castillo and DemetriaNori for the delay in communicating about the [...] recommend we get a consultation with a strip deburrer, a blood specialist. I put an order in for a consultation and will ask a relationship banker to contact you to get it set up. We just want to make sure there is nothing serious going on that we should be more concerned about. Migdalia Cramer MD [facility] 08-22-2024 Telephone encounter Note Patients sister in law has been informed. Thank you [facility] 08-22-2024 Miscellaneous Notes Patients sister in law has been informed. Thank you Please let her know that Dr. Cramer is currently evaluating the lab results and will reach out to her as soon as he is able. He is currently out of the office. ,Willie Shersch, IMMIGRATION COORDINATOR.TOWER SWITCH OPERATOR Patients sister in law called and wanted to discuss the results of the labs. documented in this encounter [facility] 08-21-2024 Telephone encounter Note Please let her know that Dr. Cramer is currently evaluating the lab results and will reach out to her as soon as he is able. He is currently out of the office. Willie APRN.CNP [facility] 08-21-2024 Telephone encounter Note The following approved medication requests have been transmitted electronically. Requested Prescriptions Signed Prescriptions Disp Refills blood sugar diagnostic (ONETOUCH ULTRA TEST) test strip 100 Strip 3 Sig: Test blood sugar once daily Authorizing Provider: WILLIE KAUR APRN.CNP [facility] 08-21-2024 Miscellaneous Notes The following approved medication [...] 2024 10:12 AM documented in this encounter [facility] 08-21-2024 Telephone encounter Note Patient has been [...] Please review and advise. Jame Hernandez MA [facility] 08-21-2024 Telephone encounter Note Prescription Refill Information [...] Perla Perez August 21, 2024 10:12 AM [facility] 08-21-2024 Telephone encounter Note Patients sister in law called and wanted to discuss the results of the labs. [facility] 08-14-2024 History of Present illness Narrative Yusuf [...] COMBINE WITH DICLOFENAC GEL blood sugar diagnostic (DezideUCH ULTRA TEST) test strip Test blood sugar [...] a long period of time Willie Kaur APRN.TOWER SWITCH OPERATOR I have personally performed a gzrd-da-qpos evaluation on this patient. I have reviewed [...] Migdalia Cramer MD documented in this encounter [facility] 08-14-2024 Note HNO ID: [id number] Author: MIGDALIA CRAMER MD Service: ? Author Type: Physician Type: Progress Notes Filed: 08/14/2024 13:57 Note Text: Yusuf Meidna is a 88 year old female Patient [...] COMBINE WITH DICLOFENAC GEL blood sugar diagnostic (Who is Undercover SpyTOUCH ULTRA TEST) test strip Test blood sugar [...] swelling or eryt (more content not included)... [facility] 08-13-2024 Note SARS-COV-2 (AGENT OF COVID-19) RNA: Not detected INFLUENZA A RNA: Not detected INFLUENZA B RNA: Not detected RESPIRATORY SYNCYTIAL VIRUS (RSV) RNA: Not detected [facility] Comment on above: Performed By: #### B CRPB1 #### [facility] CLIA [id number] [address] [place] [address] [place] #### [id number] #### [facility] CLIA [id number] [address] [place] [address] [place] 08-13-2024 Telephone encounter Note Called sister in law who is with the patient, patient is Yemeni speaking. ? Blood sugar-patient checks every am, did not do today and is not understanding that sister in law would like her to check it now. She did eat this morning Falls recently Concern based on pill box that she may have taken a days Sister-in -law is in agreement that patient needs to be seen in an emergency room-[place] is close. Reason for Disposition [1] Drinking very little AND [2] dehydration suspected (e.g., no urine > 12 hours, very dry mouth, very lightheaded) Answer Assessment - Initial Assessment Questions 1. DESCRIPTION: Describe how you are feeling. Patient speaks Yemeni, Sister-in -law is there with her. Patient [...] pain) no Protocols used: Weakness (Generalized) and Uifxjxm-[id number]-CL [facility] 08-13-2024 Miscellaneous Notes Called sister in law who is with the patient, patient is Yemeni speaking. ? Blood sugar-patient checks every am, did not do today and is not understanding that sister in law would like her to check it now. She did eat this morning [place] recently Concern based on pill box that she may have taken a days Sister-in -law is in agreement that patient needs to be seen in an emergency room-[place] is close. Reason for Disposition [1] Drinking very little AND [2] dehydration suspected (e.g., no urine > 12 hours, very dry mouth, very lightheaded) Answer Assessment - Initial Assessment Questions 1. DESCRIPTION: Describe how you are feeling. Patient speaks Yemeni, Sister-in -law is there with her. Patient [...] pain) no Protocols used: Weakness (Generalized) and [id number] Patient's caregiver Demetria spoke with the patient [...] seen today. Demetria can be reached at [phone]. documented in this encounter [facility] 08-13-2024 Telephone encounter Note Patient's caregiver Demetria [...] seen today. Demetria can be reached at [phone]. [facility] 08-10-2024 Telephone encounter Note The following approved medication requests have been transmitted electronically. Requested Prescriptions Signed Prescriptions Disp Refills glipiZIDE (GLUCOTROL XL) 2.5 mg 24 hr tablet 90 tablet 3 Sig: TAKE 1 TABLET BY MOUTH ONCE DAILY Authorizing Provider: WILLIE KAUR APRN.CNP [facility] 08-10-2024 Miscellaneous Notes The following approved medication [...] Sandrita Christianson LPN documented in this encounter [facility] 08-10-2024 Telephone encounter Note Patient has been [...] Please review and advise. Sandrita Christianson LPN [facility] 07-19-2024 Telephone encounter Note The following approved [...] ORDER BEING SHIPPED Authorizing Provider: WILLIE KAUR APRN.TOWER SWITCH OPERATOR [facility] 07-19-2024 Miscellaneous Notes The following approved medication requests have been transmitted electronically. Requested Prescriptions Signed Prescriptions Disp Refills lisinopril-hydroCHLOROthiazide (ZESTORETIC) 20-25 mg per tablet 90 tablet 3 Sig: Take 1 tablet by mouth once daily. Authorizing Provider: WLILIE KAUR lisinopril-hydroCHLOROthiazide (ZESTORETIC) 20-25 mg per tablet 7 tablet 0 Sig: Take 1 tablet by mouth once daily for 7 days. SHORT TERM WHILE MAIL ORDER BEING SHIPPED Authorizing Provider: WILLIE KAUR APRN.TOWER SWITCH OPERATOR [facility] term supply to [facility], superintendent container terminal to [facility] per message below. [...] 2024 9:49 AM documented in this encounter [facility] 07-19-2024 Telephone encounter Note [facility] supply to [facility], assisted to [facility] pharmacy per message below. [facility] 07-19-2024 Telephone encounter Note Prescription Refill Information [...] Perla Perez July 19, 2024 9:49 AM [facility] 07-12-2024 Instructions Migdalia Cramer MD - 07/12/2024 9:56 AM EDT Try drinking 1 Glucerna a day to get some extra calories. I don't want you to continue to lose weight. Take all medications exactly as prescribed. Please have labs done again in late August. Keep appointment scheduled for 09/13/24 for Medicare Annual Wellness Visit. documented in this encounter [facility] 07-12-2024 Note HNO ID: [id number] Author: MIGDALIA CRAMER MD Service: ? Author [...] of keeping this visit Migdalia Cramer MD [facility] 07-12-2024 History of Present illness [...] Migdalia Cramer MD documented in this encounter [facility] 05-23-2024 Telephone encounter Note Patient has been [...] Please review and advise. Sandrita Christianson LPN [facility] 05-23-2024 Miscellaneous Notes Patient has been identified [...] only has 2 pills left Perla Bang [facility] May 23, 2024 10:28 AM documented in this encounter [facility] 05-23-2024 Telephone encounter Note Prescription Refill Information [...] only has 2 pills left Perla Bang [facility] May 23, 2024 10:28 AM [facility] 04-26-2024 Telephone encounter Note Scheduled for Medicare AWV 09/13/24 Has lab orders The following approved medication requests have been transmitted electronically. Requested Prescriptions Signed Prescriptions Disp Refills pioglitazone (ACTOS) 45 mg tablet 90 tablet 3 Sig: Take 1 tablet by mouth once daily. Authorizing Provider: MIGDALIA CRAMER MD [facility] 04-26-2024 Miscellaneous Notes Scheduled for Medicare AWV [...] Jame Hernandez MA documented in this encounter [facility] 04-26-2024 Telephone encounter Note Patient has been [...] Please review and advise. Jame Hernandez MA [facility] 04-16-2024 Telephone encounter Note Spoke with sister in law, Demetria and explained that her current Rx is for Glipizide/Glucotrol 2.5 mg once daily - not for Glyburide. Verbalized understanding. No further questions. [facility] 04-16-2024 Miscellaneous Notes Spoke with sister in Demetria saenz and explained that her current Rx is for Glipizide/Glucotrol 2.5 mg once daily - not for Glyburide. Verbalized understanding. No further questions. Patients sister in law Augustin called and needs clarification on the patient diabetes medications she stated that she got a call from [employer] stating that she had glyburide ready for picker box operator but she thought she was supposed to be taking glipizide. Please advise documented in this encounter [facility] 04-16-2024 Telephone encounter Note Patients sister in law Augustin called and needs clarification on the patient diabetes medications she stated that she got a call from [employer] stating that she had glyburide ready for picker box operator but she thought she was supposed to be taking glipizide. Please advise [facility] 03-21-2024 History of Present illness Narrative Type [...] its relevant components. documented in this encounter [facility] 03-13-2024 History of Present illness Narrative POPULATION [...] POPULATION HEALTH NAVIGATION OUTREACH Action/FYI Spoke with nzvqhv-yz-gwo Demetria. Patient is on [facility] for the following HM care gaps: [...] Diabetic Eye Exam HBA1C 03/21/2024 in [facility] with GERTRUDIS BILL - Dilated Retinal Exam 04/12/2024 in [facility] with ADITI CAMARGO - HFU pseudogout 07/12/2024 in [facility] with MIGDALIA CRAMER - Follow Up, HCC Gap Closure 09/13/2024 in [facility] with MIGDALIA CRAMER - AWV Due HCC related Navigation Signature: Lien Rutledge MA March 13, 2024 2:52 PM documented in this encounter [facility] 02-28-2024 Miscellaneous Notes The following approved medication requests have been transmitted electronically. Requested Prescriptions Signed Prescriptions Disp Refills lansoprazole (PREVACID) 30 mg capsule 90 capsule 3 Sig: Take 1 capsule by mouth once daily. Authorizing Provider: WILLIE KAUR APRN.CNP Order pended for mail Last OV-04/23/2023 [facility] Next OV-none [facility] is calling ,asking for a refill on the following medications . pravastatin (PRAVACHOL) 20 mg tablet 90 tablet 3 10/23/2022 10/23/2023 Sig: Take 1 tablet by mouth once daily. Sent to pharmacy as: pravastatin (PRAVACHOL) 20 mg tablet Class: Normal Route: ORAL Order: [id number] E-Prescribing Status: Receipt confirmed by pharmacy (10/23/2022 9:10 AM EST) She doesn't have many left , they are asking for this fill to be sent to the [facility] . Then if she gets refills send it to the mail in pharmacy . Please advise and route back so we can make tube maker aware . Thanks documented in this encounter [facility] 02-01-2024 Miscellaneous Notes The following approved medication requests have been transmitted electronically. Requested Prescriptions Signed Prescriptions Disp Refills lisinopril-hydroCHLOROthiazide (ZESTORETIC) 20-25 mg per tablet 90 tablet 3 Sig: TAKE 1 TABLET BY MOUTH ONCE DAILY Authorizing Provider: WILLIE KAUR APRN.DRAKE documented in this encounter [facility] 02-01-2024 Miscellaneous Notes The following approved medication requests have been transmitted electronically. Requested Prescriptions Signed Prescriptions Disp Refills amLODIPine (NORVASC) 5 mg tablet 90 tablet 3 Sig: TAKE 1 TABLET BY MOUTH ONCE DAILY Authorizing Provider: WILLIE KAUR APRN.CNP documented in this encounter [facility] 01-24-2024 Miscellaneous Notes Contacted the caregiver stated the patient picker box operator the prescription. Request denied no further action needed. 7 day short term Rx sent to [facility] on 01/11/24. 1 year superintendent container terminal Rx sent to [facility] on 01/11/24. Please call to clarify [...] mg tablet Class: Normal Route: ORAL Order: [id number] E-Prescribing Pt states she is completely out and mail order has not come in would like a short supply sent to [facility] [address] documented in this encounter [facility] 01-11-2024 Miscellaneous Notes The following approved medication [...] day with meals. Authorizing Provider: WILLIE KAUR APRN.TOWER SWITCH OPERATOR Patient has been identified by name and [...] for temporary supply to be sent to [facility] while they wait for [facility] for 90 day supply. Please review and advise. Jame Hernandez MA Yusuf Medina called today. Reason : Yusuf tube maker is calling today , she states the [...] mg tablet Class: Normal Route: ORAL Order: [id number] E-Prescribing Status: Receipt confirmed by pharmacy (10/14/2023 2:49 PM EST) Please advise and route back so caregiver can be updated . Thanks documented in this encounter [facility] 10-14-2023 Miscellaneous Notes The following approved medication requests have been transmitted electronically. Requested Prescriptions Signed Prescriptions Disp Refills metFORMIN (GLUCOPHAGE) 850 mg tablet 14 tablet 0 Sig: Take 1 tablet by mouth two times a day with meals for 7 days. Authorizing Provider: WILLIE KAUR APRN.DRAKE Patient has [...] also needs an emergency script sent to [facility] on [address] in [place]. Patient has been identified by name and date of : Yes Requested Prescriptions Pending Prescriptions Disp Refills metFORMIN (GLUCOPHAGE) 850 mg tablet 180 tablet 3 Sig: Take 1 tablet by mouth two times a day with meals. RX INSTRUCTIONS: Patient aware RX escripted to mail away pharmacy. No need to notify patient. Dinora Perez documented in this encounter [facility] 09-06-2023 Miscellaneous Notes The following approved medication [...] Jame Hernandez MA documented in this encounter [facility] 08-31-2023 Miscellaneous Notes Called the number on the chart and confirmed with tube maker that the medication has been sent as [...] that 1 year supply was sent to [facility] pharmacy on 06/02/23. Demetria states that's the problem, all her medications need to go through mail order as her insurance will not cover medications sent to [facility]. Informed her that will send high priority to provider to send short term supply of medication to pharmacy today so it can be picked up and assisted supply to be sent through mail order. Demetria agreeable and verbalized understanding. Please advise Thank you! Please call to review with Demetria the pharmacy issue for patient's Glipizide. She is asking for a call today as the patient has 1 left. documented in this encounter [facility] 06-23-2023 Miscellaneous Notes The following approved medication requests have been transmitted electronically. Requested Prescriptions Signed Prescriptions Disp Refills metFORMIN (GLUCOPHAGE) 850 mg tablet 180 tablet 3 Sig: Take 1 tablet by mouth twice daily with meals. Authorizing Provider: WILLIE KAUR APRN.DRAKE Patient has [...] Laura Hay Pss documented in this encounter [facility] 06-03-2023 Miscellaneous Notes Called and left VM. Morro Tomas, Patient Hyster Driver 1st attempt Lvm , will try again at a later time Thanks Please let patient know that Rx has been refilled. The following approved medication requests have been transmitted electronically. Requested Prescriptions Signed Prescriptions Disp Refills glipiZIDE (GLUCOTROL XL) 2.5 mg 24 hr tablet 90 tablet 3 Sig: Take 1 tablet by mouth once daily. Authorizing Provider: WILLIE KAUR APRN.TOWER SWITCH OPERATOR Patient has been identified by name and [...] would like the medication sent to the [facility] [address] [address] Leanne Ding documented in this encounter [facility] 05-12-2023 Miscellaneous Notes 7.6 (03/08/2023) documented in this encounter [facility] 04-28-2023 History of Present illness Narrative POPULATION HEALTH NAVIGATION OUTREACH Action/I Patient Outreach: Left voicemail for patient to call back to schedule in RST. (Please see [employer] order dated for (03/17/2023). Any agent can assist with scheduling. Patient Identified by Name and : NO Outreach Outcome/Action Unable to reach patient: Left message Did you use a PCP flex slot to schedule this appointment? No Reason for Outreach Care Gap or Scheduling/Wellness visits Payer: Payor: [facility] MEDICARE / Plan: [facility] MEDICARE ADVANTAGE PPO / Product Type: [...] 11/14/2022 DEPRESSION ASSESSMENT Never done Navigation Signature: Margei Rodríguez Pss April 28, 2023 12:52 PM documented in this encounter [facility] 04-20-2023 Miscellaneous Notes Contacted patient's caregiver Demetria, [...] glucometer as needed Authorizing Provider: WILLIE KAUR APRN.TOWER SWITCH OPERATOR Contacted patient's caregiver Demetria who states patient's blood sugar monitor is 10 or more years old and patient's blood sugar read 25, then it read in the 200's when re-checked it right after. Demetria wondering if patient's blood glucose monitor working correctly & if she needs a new one? Please advise Thank you Patient's tube maker Demetria calling with a question for a nurse regarding the patient's blood glucose monitor. Please call. TY documented in this encounter [facility] 04-20-2023 Miscellaneous Notes Caregiver made aware Appointment [...] if ok. TY documented in this encounter [facility] 04-13-2023 Instructions Willie Kaur APRN.CNP - 04/13/2023 3:33 PM EDT CONTINUE Actos 45 mg once daily REDUCE DOSE Instead of 1000 mg Metformin twice daily, you should decrease dose to 850 mg twice daily START 2.5 mg Glipizide If you develop dizziness, light headedness, sweating, nausea, shakiness check your blood sugar to see if you are dropping too low documented in this encounter [facility] 04-13-2023 History of Present illness Narrative SUBJECTIVE: [...] diabetes. Demetria must come to act as interpreter deaf, they decline interpreter deaf. Patients last HgbA1C was Hemoglobin A1C (%) Date Value 03/08/2023 7.6 10/21/2022 7.5 04/27/2022 7.1 10/12/2021 7.4 09/10/2020 6.7 01/24/2020 6.8 ). Last BP 04/13/23 : 125/63 03/29/23 : 150/71 03/17/23 : 146/67 CKD3 Creatinine Date Value Ref Range Status 03/09/2023 0.92 0.58 - 0.96 mg/dL Final Demetria as interpreter deaf Declines [facility] interpreter deaf Current Outpatient Medications on File Prior to Visit Medication Sig metFORMIN (GLUCOPHAGE) 1,000 mg tablet Take 1 tablet by mouth twice daily with meals. blood sugar diagnostic (Who is Undercover SpyTOUCH ULTRA TEST) test strip Test blood sugar [...] diabetes. Demetria must come to act as interpreter deaf, they decline interpreter deaf. - GLIPIZIDE ER 2.5 MG TABLET, EXTENDED RELEASE 24 HR 2. CKD stage 3 due to type 2 diabetes mellitus (HCC) - ICD9: 250.40, 585.3, ICD10: E11.22, N18.30 - Stable Willie Kaur APRN.DRAKE documented in this encounter [facility] 03-29-2023 Instructions Willie Kaur APRN.DRAKE - 03/29/2023 3:50 PM EDT Check blood sugar once per day Tuesday - check in morning Tuesday - check in evening Tuesday - check in morning Tuesday - check in evening - check in morning Tuesday - check in evening Tuesday - check in morning documented in this encounter [facility] 03-29-2023 History of Present illness Narrative SUBJECTIVE: Yusuf Medina is a 87 year old female who presents for 2 week evaluation and treatment of DM Sister in law Augustin acts as interpreter deaf, declines phone interpreter deaf 03/17/23 Family Medicine office visit Sister raymon Augustin reported fasting blood sugars 120s-140s, so [...] BY MOUTH ONCE DAILY blood sugar diagnostic (Who is Undercover SpyTOUCH ULTRA TEST) test strip Test blood sugar [...] months - METFORMIN 1,000 MG TABLET - Who is Undercover SpyTOUCH ULTRA TEST STRIPS - BASIC METABOLIC PNL 2. Essential hypertension - ICD9: 401.9, ICD10: I10 - Fair control 3. CKD stage 3 due to type 2 diabetes mellitus (HCC) - ICD9: 250.40, 585.3, ICD10: E11.22, N18.30 - Check kidney function one month after increased dose Metformin. Keep close eye on kidney function - BASIC METABOLIC PNL Willie Kaur APRN.DRAKE documented in this encounter [facility] 03-24-2023 Miscellaneous Notes Called caregiver and went [...] like office to call her back at [phone] as soon as possible. Patient has been identified by name and birthdate. Duration of symptoms: N/A Person calling: caregiver: Demetria Call patient at: at home [phone] (home) [phone] (cell) Was an appointment scheduled: No Closing statement: Results or non-symptom based questions: Thank you for calling [facility], your call will be returned within the next business day. Laura Hay Pss documented in this encounter [facility] 03-22-2023 Miscellaneous Notes Spoke with patient's caregiver, Demetria. Documented in nurse triage encounter from 03/18/23. Patient caregiver called back.She would like a call back at [phone] Thanks Left message to call the office back, may speak with any available triage nurse. Gabbie Melchor RN Demetria is calling on behalf of Yusuf. She has blood sugars readings to give and would like to speak to a nurse with the readings and any changed to meds. Please call her at [phone] documented in this encounter [facility] 03-17-2023 History of Present illness Narrative Transitional [...] Lymph 1.00 - 4.00 k/uL 0.71 (L) Towner% % 5.7 Abs Towner <0.87 k/uL 0.99 (H) Eosin% % 0.7 [...] but Demetria prefers to not drive to [facility] so she will try to reschedule this. - CONSULT TO COMMUNITY ORGANIZATION AIDE 3. Leukocytosis, unspecified type - ICD9: 288.60, [...] 2023 2:20 PM documented in this encounter [facility] 03-10-2023 History of Present illness Narrative Noted Willie Kaur APRN.CNP TCM Home Visit Referral Source of Stratification: [facility] Admission Status: Discharged Readmission [...] 03/23 Rheum, 04/23 PCP Spoke with pt's radhaer Jesús Tapia, validated in chart, his number is listed as pt's Reports: pt has some improvement in pain He is not currently with her Advised to call PCP wit new/worsening symptoms Confirmed PCP appt tomorrow Lien Hankins RN SUMMARY: Discharge Network Status: In-Network Discharge Pt discharged from [facility] on 03/09/23. Admitted for: Arthalgia Contact made with patient: Yes Hi my name is Lien Hankins RN and I am calling from the [facility] on behalf of your PCP, Migdalia Cramer [...] like to speak with a social work teamcenter solution architect to help give you support for any [...] I will send your request to a relationship banker who will contact and assist you with [...] Ordered -: No documented in this encounter [facility] 03-07-2023 History of Past i llness Narrative [...] of this encounter (statuses as of 03/10/2023) [facility]04-24-2023 History of Past illness Narrative* Problem Noted [...] Miralax and Colace to prevent narcotic-induced constipation -Jesús Ozinga, PA in Neurosurgery spoke with Dr. Martines as [...] of this encounter (statuses as of 03/19/2023) [facility]-24-2023 History of Past illness Narrative* Problem Noted [...] of this encounter (statuses as of 03/23/2023) [facility] History of Past illness Narrative* Problem Noted [...] of this encounter (statuses as of 03/24/2023) [facility] History of Past illness Narrative* Problem Noted [...] of this encounter (statuses as of 03/30/2023) [facility] History of Past illness Narrative* Problem Noted [...] of this encounter (statuses as of 04/14/2023) [facility] History of Past illness Narrative* Problem Noted [...] of this encounter (statuses as of 04/20/2023) [facility] History of Past illness Narrative* Problem Noted [...] of this encounter (statuses as of 04/20/2023) [facility] History of Past illness Narrative* Problem Noted [...] of this encounter (statuses as of 04/28/2023) [facility] History of Past illness Narrative* Problem Noted [...] of this encounter (statuses as of 05/16/2023) [facility] History of Past illness Narrative* Problem Noted [...] of this encounter (statuses as of 06/15/2023) [facility] History of Past illness Narrative* Problem Noted [...] of this encounter (statuses as of 06/23/2023) [facility] History of Past illness Narrative* Problem Noted [...] of this encounter (statuses as of 08/31/2023) [facility] History of Past illness Narrative* Problem Noted [...] of this encounter (statuses as of 09/06/2023) [facility] History of Past illness Narrative* Problem Noted [...] of this encounter (statuses as of 10/14/2023) [facility] History of Past illness Narrative* Problem Noted [...] of this encounter (statuses as of 01/12/2024) [facility] History of Past illness Narrative* Problem Noted [...] of this encounter (statuses as of 01/24/2024) [facility] History of Past illness Narrative* Problem Noted [...] of this encounter (statuses as of 02/01/2024) [facility] History of Past illness Narrative* Problem Noted [...] of this encounter (statuses as of 02/01/2024) [facility] History of Past illness Narrative* Problem Noted [...] of this encounter (statuses as of 02/29/2024) [facility]04-11-2023 Miscellaneous Notes* Telephone Encounter - Ok King [...] advise. Jame Hernandez MA documented in this encounterPremier [facility]03-08-2023 Miscellaneous Notes* Telephone Encounter - Willie Kaur [...] Allergies: Patient has no known allergies. (home) [phone] (cell) Reason for call: patient needs a refill on the following medications Disp Refills Start End blood sugar diagnostic (ONETOUCH ULTRA BLUE TEST STRIP) test strip 300 Strip 3 2019 Sig: USE DIRECTED TO TEST BLOOD SUGARS 3 TIMES A DAY Sent to pharmacy as: blood sugar diagnostic (ONETOUCH ULTRA BLUE TEST STRIP) test strip Class: Normal Order: [id number] E-Prescribing Status: Receipt confirmed by pharmacy (2019 10:20 AM EST) Please advise and make patient aware Thanks documented in this encounterPrem[facility]02-14-2023 Miscellaneous Notes* Telephone Encounter - Willie Kaur [...] advise. Sandrita Christianson LPN documented in this encounterPrem[facility]12-10-2022 History of Present illness Narrative* Migdalia Cramer [...] follow-up. Migdalia Cramer MD documented in this encounterPrem[facility]11-21-2022 Miscellaneous Notes* Telephone Encounter - Willie Kaur APRN.TOWER SWITCH OPERATOR - 10/04/2022 12:47 PM EST The following [...] advise. Sandrita Christianson LPN documented in this encounterPremier Health11-17-2022 Miscellaneous Notes* Telephone Encounter - Willie Kaur [...] advise. Sandrita Christianson LPN documented in this encounterPremier Health10-04-2022 Miscellaneous Notes* Telephone Encounter - Agustina Hernandez [...] once daily. Authorizing Provider: WILLIE KAUR APRN.DRAKE * Telephone Encounter - Jodi Perez - [...] she only wants 14 days to local [facility] - I made a copy and corrected the amount. Then I entered her request for the mail order going to [facility]. Each is assigned to the correct Pharmacy . Patient aware RX will be sent to pharmacy. Please call Demetria once sent at [phone]. Jodi Smith Pss documented in this encounterPremier Health07-29-2022 Miscellaneous Notes* Telephone Encounter - Willie Kaur [...] his note. They should be able to picker box operator a kit form [facility] lab. He also asked them to consider a diagnostic colonoscopy, which is not Cologuard. Willie Kaur APRN.CNP * Telephone Encounter - Sandrita Christianson LPN - 06/10/2022 9:56 AM EDT Fax received from [employer] that pt has not completed Cologuard that was ordered on 04/08/22. Fax scanned into pt's chart (according to chart, pt had diag occult blood exam on 04/27/22) Please advise Thank you documented in this encounterPremier Health07-15-2022 Miscellaneous Notes* Telephone Encounter - Willie Kaur [...] she does not have any glipizide left? Manager Behavioral then proceeded to ask questions regarding pioglitazone-is [...] send Short term supply of Glipizide to [facility] pharmacy- [address] (pended for provider). * Telephone Encounter - Sandrita Christianson LPN - 05/28/2022 9:24 AM EDT PSS received call from pt's tube maker Demetria. Pt informed Demetria that she is [...] will call our office. documented in this encounterPremier Health06-25-2022 History of Present illness Narrative* Migdalia Cramer MD - 05/08/2022 8:08 AM EDT SUBJECTIVE: Yusuf Medina is a 86 year old female who presents for evaluation and treatment of Diabetes Mellitus, Hypertension and Hyperlipidemia Patient concerns: F/U from 04/03 office visit Pain in extremities has improved Had her repeat labs done She has not taken her daily meds yet today Pt discharged from [facility] on 03/29/22. Admitted for: Pain in arms and legs with elevated white count and urinary tract infection Admitted to [facility] 03/23-03/26 and 03/26-03/29 (pain worsened and [...] are brother Jesús and sister in law Demetria Cramer MD documented in this encounterPremier Health06-14-2022 History of Present illness Narrative* Katia Farooq [...] in patient's care. Summary: Pt discharged from [facility] on 03/29/22. Admitted for: Pain in arms and legs with elevated white count and urinary tract infection Concerns: No concerns at this time. Frame Cleaner plan for next outreach: No further follow up needed at this time. TCM outreach complete. Signature Katia Farooq RN April 27, 2022 documented in this encounterPremier Health06-14-2022 Evaluation note* Diagnosis Hypertensive kidney disease with stage 3 chronic kidney disease, unspecified whether stage 3a or 3b CKD (HCC)- Primary documented in this encounter [facility]06-13-2022 Miscellaneous Notes* Telephone Encounter - Cheryl Anders [...] 4:28 PM EDT Call placed to pt's tube maker, Demetria. Informed her of the 2 blood work orders to have completed, & that pt can give urine sample at [facility] when she goes for lab draw. Demetria also confirmed that they Did picker box operator IFOBT but pt Having trouble going to [...] Tamayo PA-C * [facility] - 04/26/2022 9:37 AM EDT Patient caregiver Demetria calling to ask about the lab order in patient chart regarding the follow up urine. She states patient received a bottle for her to hand carry her urine, is that correct? Or is it to be done when she arrives at the [facility]? And exactly which labs are to be done forscheduling? Demetria states when patient came in for labs she was told there were no orders and she does not want that to happen again. Call caregiver Demetria to discuss at [phone] documented in this encounterPremier Health05-26-2022 Miscellaneous Notes* Telephone Encounter - Sandrita Christianson LPN - 04/08/2022 1:25 PM EDT Pt's POA/tube maker Demetria notified & had no questions/concerns. * Telephone Encounter - Willie Kaur APRN.CNP - 04/08/2022 11:47 AM EDT Please notify patient that Cologuard has been ordered and Cologuard [employer] will reach out [facility] mailing address. Willie Kaur APRN.CNP * Telephone Encounter - Yeimy Dubon - 04/08/2022 10:37 AM EDT Patient's tube maker, Demetria is calling requesting the Cologuard kit. She is asking for the kit or prescription for the kit. Please return call at [phone] documented in this encounterPremier Health05-21-2022 Instructions* Patient Instructions* Migdalia D Cramer, MD - 04/03/2022 8:39 AM EDT Meloxicam [...] of March. Consider colonoscopy. documented in this encounterPremier Health05-21-2022 History of Present illness Narrative* Migdalia Cramer [...] review completed Yes SUMMARY: Pt discharged from [facility] on 03/29/22. Admitted for: Pain in arms and legs with elevated white count and urinary tract infection Admitted to [facility] 03/23-03/26 and 03/26-03/29 (pain worsened and she returned to ED 5 hrs after D/C) R arm pain Unable to do ADLs independently E Coli UTI Yusuf Medina is a 86 year old female Patient presents with: Follow Up: EElizabeth 03/23/22, 03/26/22 Accompanied today by her brother [...] increased fatigue, less energy Pain today is 8/, R arm ROS: (those not included in [...] of the right femoral acetabular joint with [id number] contact, subchondral sclerosis and marginal osteophytosis. Left [...] 04/03/2022 8:06 AM EDT documented in this encounterPremier Health05-17-2022 Miscellaneous Notes* Telephone Encounter - Willie Kaur [...] up Willie Kaur APRN.CNP documented in this encounterPremier Health05-17-2022 Miscellaneous Notes* Telephone Encounter - Willie Kaur APRN.CNP - 03/30/2022 10:53 AM EDT Noted and agree with OV Willie Kaur APRN.DRAKE * Telephone Encounter - Magnolia Johnson RN - 03/30/2022 10:17 AM EDT Spoke with patients cardiac care nurse Demetria. She had questions for the doctor [...] pain (volearen gel and lidocaine patches) and cardiac care nurse is not sure how long she should be using those (advised for now to continue until follow up appointment) Offered several appointments this week but her cardiac care nurse Demetria is having trouble getting her to [...] Assessment Questions Recently in the hospital. Pt cardiac care nurse wanted a follow up to discuss med changes and how to help with her pain more assisted. Protocols used: INFORMATION ONLY CALL - NO [id number] * Telephone Encounter - ZANA Buck - 03/30/2022 9:16 AM EDT This morning Yusuf caregiver called with some concerns . She has had the patient in the ER two times in the last few days. She is experiencing all over painand would like more suggestions on how to help the patient . Please Advise Thanks documented in this encounterPremier Health05-14-2022 History of Past illness Narrative* Problem Noted [...] of this encounter (statuses as of 03/30/2022) [facility]05-14-2022 History of Past illness Narrative* Problem Noted [...] of this encounter (statuses as of 03/30/2022) [facility]05-14-2022 History of Past illness Narrative* Problem Noted [...] of this encounter (statuses as of 04/03/2022) [facility]-14-2022 History of Past illness Narrative* Problem Noted [...] of this encounter (statuses as of 04/08/2022) [facility]14[facility]20[facility] History of Past illness Narrative* Problem Noted [...] of this encounter (statuses as of 04/26/2022) [facility]-14[facility]20[facility] History of Past illness Narrative* Problem Noted [...] of this encounter (statuses as of 04/27/2022) [facility]14[facility]20[facility] History of Past illness Narrative* Problem Noted [...] of this encounter (statuses as of 05/08/2022) [facility] History of Past illness Narrative* Problem Noted [...] of this encounter (statuses as of 05/28/2022) [facility]14[facility]20[facility] History of Past illness Narrative* Problem Noted [...] of this encounter (statuses as of 06/11/2022) [facility]-14[facility]20[facility] History of Past illness Narrative* Problem Noted [...] of this encounter (statuses as of 08/18/2022) [facility]-14[facility]20[facility] History of Past illness Narrative* Problem Noted [...] of this encounter (statuses as of 09/30/2022) [facility]14[facility]2022 History of Past illness Narrative* Problem Noted [...] of this encounter (statuses as of 10/04/2022) [facility]14[facility] History of Past illness Narrative* Problem Noted [...] of this encounter (statuses as of 11/15/2022) [facility]14[facility] History of Past illness Narrative* Problem Noted [...] of this encounter (statuses as of 12/28/2022) [facility] History of Past illness Narrative* Problem Noted [...] of this encounter (statuses as of 01/20/2023) [facility]-14-2022 History of Past illness Narrative* Problem Noted [...] of this encounter (statuses as of 02/22/2023) [facility]05-12-2022 Miscellaneous Notes* Telephone Encounter - Willie Kaur [...] 03/23/2022 10:18 AM EDT Pharmacy verified in [facility] Patient has been identified by name [...] Please advise. Aditi Perez documented in this encounterPremier Health05-09-2022 Miscellaneous Notes* Telephone Encounter - Willie Kaur [...] and advise. Sangita Herring documented in this encounterPremier Health04-15-2022 Miscellaneous Notes* Telephone Encounter - Agustina Hernandez [...] as discontinued. Please review and advise at [phone]. documented in this encounterPremier Health02-22-2022 Miscellaneous Notes* Telephone Encounter - Lucinda M Willie FRANKLIN - 01/05/2022 11:58 AM EST Call placed to patient and her son states they are out of state and they will call back in if the patient needs something but as far as they know she did not need refills at this time. * Telephone Encounter - Lucinda Spencer Willie FRANKLIN - 12/25/2021 2:40 PM EST Patient has [...] sent to the pharmacy. Please call patient's tube maker at [phone] Daniel Holder documented in this encounterPremier Health01-24-2022 NoteTobey Hospitale care referral received for patient. Attempted to reach via telephone, however no answer. Voicemail left for return call. [facility]01-21-2022 [facility] CONSULTATION YUSUF MEDINA [facility] [id number] ICU NIGHAT PENNY [place] [id number] REFERRING PHYSICIAN: CONSULTING PHYSICIAN: Gertrudis Beckford DO DATE OF CONSULTATION: 12/04/2021 CHIEF COMPLAINT: Status post fall. HISTORY OF PRESENT ILLNESS: This 85-year-old [place]i woman was taking care of her 16 [...] 2 diabetes. SOCIAL HISTORY: Patient immigrated from [facility] with her by way of 10 years [...] DO GH/MedQ Job #: (more content not included)...[facility]01-21-2022 Note Patient: YUSUF MEDINA Age: 85 years Sex: Female : 1935 Associated Diagnoses: None Author: IDA ALMODOVAR MD Primary care physician: Dr. Cramer Chief Complaint: Ms. Medina is unable to offer a chief complaint HPI: Ms. Medina is an 85 year old lady brought in by EMS following a fall. She is quite confused. In addition, there is a language barrier. As a result, history is quite limited. She lives alone. 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 She had fallen. It is unknown [...] (DEC 04:30) Resp Rate 18 br/min (DEC 04:55) SBP 126 mmHg (DEC 04:) DBP L 48mmHg (DEC 04:55) General: alert, no acute distress, lying in [...] levels of other ser (more content not included)...[facility]01-20-2022 NotePatient: YUSUF MEDINA Age: 85 [...] hypothermia Plan: warm, CT eval [facility]08-31-2021 History of Present illness Narrative* [...] 14, 2021 9:01 AM documented in this encounterPremier Health07-12-2017 History of Past illness Narrative* Problem Noted [...] of this encounter (statuses as of 02/18/2022) [facility]07-12-2017 History of Past illness Narrative* Problem Noted [...] 11/23/2013 Osteoarthritis of ankle or foot, right 12/0712/07/2017 Diabetes mellitus type 2, controlled, without co [...] of this encounter (statuses as of 02/26/2022) [facility]07-12-2017 History of Past illness Narrative* Problem Noted [...] of this encounter (statuses as of 03/22/2022) [facility]-12[facility]2017 History of Past illness Narrative* Problem Noted [...] of this encounter (statuses as of 03/25/2022) [facility]* Diagnosis Type 2 diabetes mellitus with stage 3 chronic kidney disease, without long-term current use of insulin (HCC) DDD (degenerative disc disease), cervical Degeneration of cervical intervertebral disc documented in this encounter [facility]* Diagnosis DDD (degenerative disc disease), cervical Degeneration of cervical intervertebral disc [facility] encounter [facility]* Diagnosis Essential hypertension Unspecified essential hypertension documented [facility] encounter [facility]* Diagnosis Acute cystitis without hematuria- Primary [...] not elsewhere classified documented in this encounter [facility]* Diagnosis Screening for colon cancer- Primary Special screening for malignant neoplasms, colon documented in this encounter [facility]* Diagnosis Iron deficiency anemia, unspecified iron deficiency anemia type- Primary documented in [facility] encounter [facility]* Diagnosis Iron deficiency anemia, unspecified iron deficiency anemia type- Primary Acute cystitis with hematuria Acute cystitis Diabetes mellitus, non-insulin dependent (NIDDM or type II) (HCC) CKD stage 3 due to type 2 diabetes mellitus (HCC) Essential hypertension Unspecified essential hypertension Hyperlipidemia associated with type 2 diabetes mellitus (HCC) Hypertensive kidney disease with stage 3b chronic kidney disease (HCC) documented in this encounter [facility]* Diagnosis Gastroesophageal reflux disease without esophagitis Esophageal reflux [facility] Diagnosis Type 2 diabetes mellitus with stage 3 chronic kidney disease, without long-term current use of insulin (HCC) [facility] Diagnosis Diabetes mellitus, [...] diabetes mellitus (HCC) documented in this encounter [facility]* Diagnosis Diabetes mellitus, non-insulin dependent (NIDDM or type II) (HCC)- Primary [facility] in this encounter [facility]* Diagnosis Essential hypertension Unspecified essential hypertension [facility] Diagnosis Pain in both hands- Primary Pain in both wrists Pain in joint, forearm Leukocytosis, unspecified type Type 2 diabetes mellitus with stage 3 chronic kidney disease, without long-term current use of insulin, unspecified whether stage 3a or 3b CKD (HCC) Muscular deconditioning Muscular wasting and disuse atrophy, not elsewhere classified [facility]* Diagnosis Diabetes mellitus, non-insulin dependent (NIDDM or type II) (HCC)- Primary Essential hypertension Unspecified essential hypertension CKD stage 3 due to type 2 diabetes mellitus (HCC) [facility]* Diagnosis Diabetes mellitus, non-insulin dependent (NIDDM or type II) (HCC)- Primary CKD stage 3 due to type 2 diabetes mellitus (HCC) [facility]* Diagnosis Diabetes mellitus, non-insulin dependent (NIDDM or type II) (HCC) [facility]* Diagnosis Diabetes mellitus, non-insulin dependent (NIDDM or type II) (HCC) [facility]* Diagnosis Gastroesophageal reflux disease without esophagitis Esophageal reflux documented [facility]* Diagnosis Diabetes mellitus, non-insulin dependent (NIDDM or type II) (HCC)- Primary [facility] Diagnosis Diabetes mellitus, non-insulin dependent (NIDDM or type II) (HCC) [facility] this encounter [facility]* Diagnosis Essential hypertension Unspecified essential hypertension [facility] Diagnosis Essential hypertension Unspecified essential hypertension [facility] Diagnosis Gastroesophageal reflux disease without esophagitis Esophageal reflux documented [facility]* Diagnosis Diabetes mellitus, non-insulin dependent (NIDDM or type II) (HCC)- Primary Hyperlipidemia associated with type 2 diabetes mellitus (HCC) (HCC) Essential hypertension Unspecified essential hypertension [facility]* Diagnosis Type 2 diabetes mellitus without retinopathy (HCC)- Primary Type II or unspecified type diabetes mellitus without mention of complication, not stated as uncontrolled Pseudophakia Lens replaced by other means documented [facility] encounter [facility]* Diagnosis Type 2 diabetes mellitus with stage 3 chronic kidney disease, without long-term current use of insulin (HCC) documented in this encounter [facility] note* Diagnosis Diabetes mellitus, non-insulin dependent (NIDDM or type II) (HCC) documented [facility] this encounter [facility]* Diagnosis Essential hypertension- Primary [...] deficiency anemia type documented in this encounter [facility]* Diagnosis Essential hypertension Unspecified essential hypertension [facility]* Diagnosis Generalized weakness- Primary Other malaise and fatigue Headache, unspecified headache type Leukocytosis, unspecified type CKD stage 3 due to type 2 diabetes mellitus (HCC) Normocytic anemia Anemia, unspecified Essential hypertension Unspecified essential hypertension Insomnia Insomnia, unspecified Arthralgia, unspecified joint [facility] Diagnosis Pain Generalized pain [facility]* Diagnosis Leukocytosis, unspecified type- Primary [facility]* Diagnosis Right ankle swelling Effusion of ankle and foot joint [facility]* Diagnosis Right ankle swelling- Primary Effusion of ankle and foot joint Closed nondisplaced fracture of right calcaneus, unspecified portion of calcaneus, initial encounter [facility]* Diagnosis Right ankle swelling Effusion of ankle and foot joint [facility]* Diagnosis Pain in joint involving right ankle and foot [facility]* Diagnosis Right ankle swelling Effusion of ankle and foot joint Closed nondisplaced fracture of right calcaneus, unspecified portion of calcaneus, initial encounter [facility] Diagnosis Leukocytosis, unspecified type- Primary Normocytic anemia Anemia, unspecified Right ankle swelling Effusion of ankle and foot joint Right ankle swelling Effusion of ankle and foot joint Right ankle swelling Effusion of ankle and foot joint [facility]* Diagnosis Medicare annual wellness [...] Leukocytosis, unspecified type [facility]* Diagnosis Right ankle swelling- Primary Effusion of ankle and foot joint Chronic pain of right ankle [facility]* Diagnosis Right ankle swelling Effusion of ankle and foot joint [facility] Diagnosis Chronic pain of right ankle- Primary [facility] Diagnosis Normocytic anemia- Primary Anemia, unspecified Leukocytosis, unspecified type [facility]* Diagnosis Chronic pain of right ankle [facility]* Diagnosis Essential hypertension Unspecified essential hypertension [facility]* Diagnosis 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)- Primary Ulcer of ankle [facility] Diagnosis Pseudogout- Primary Other disorder of calcium metabolism Ankle swelling, right Medication monitoring encounter Encounter for therapeutic drug monitoring documented in this encounter [facility] note* Diagnosis Non-pressure chronic ulcer of [...] kidney disease (HCC) [facility] Diagnosis Pressure injury of right ankle, stage 3 (HCC)- Primary documented in this encounter [facility] note* Diagnosis Hyperlipidemia with target LDL less than 100 Other and unspecified hyperlipidemia documented in this encounter [facility] note* Diagnosis Leukocytosis, unspecified type- Primary Normocytic anemia Anemia, unspecified Vitamin B6 deficiency Cellulitis of right ankle documented in this encounter [facility] noteNo assessment information availableWBerger Hospital Work Phone: Evaluation note* Diagnosis 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 for referral (narrative)* Diagnostic Procedure Only (Routine) - Closed Specialty Diagnoses / Procedures Referred By Contac t Referred To Contact XR IMAGING Diagnoses Pain Procedures XR SHOULDER GENERAL 3V OR MORE AP/TRUE AP/OTHER LT X-RAY SHOULDER COMPLET [place] [address] [place] [address] [place] [address] Referral ID Status Reason Start Date Expiration Date V isits Requested Visits Authorized [id number] Closed Auto-Generate d Referral 07/09/2021 08/08/[address] [facility] for referral (narrative)* Diagnostic Procedure Only (Routine) - Closed Specialty Diagnoses / Procedures Referred By Contac t Referred To Contact XR IMAGING Diagnoses Right ankle swelling Procedures XR ANKLE GENERAL 3V AP/LAT/OBL RIGHT RADEX ANKLE COMPLETE MINIMUM 3 VIEWS Grupo Mendez [place] [id number] [place], [place] [phone] [place] [address] Referral ID Status Reason Start Date Expiration Date V isits Requested Visits Authorized [id number] Closed Auto-Generate d Referral 09/17/2024 10/17/[address] [facility] for referral (narrative)* Diagnostic Procedure Only (Urgent) - Closed Specialty Diagnoses / Procedures Referred By Contac t Referred To Contact US IMAGING Diagnoses Right ankle swelling Procedures US DVT LOWER RIGHT DUP-SCAN XTR VEINS UNILATERAL/LIMITED STUDY Grupo Mendez MD [id number] [place], [place] [phone] [place] [address] Referral ID Status Reason Start Date Expiration Date V isits Requested Visits Authorized [id number] Closed Auto-Generate d Referral 09/18/2024 10/17/[address] [facility] for referral (narrative)* Diagnostic Procedure Only (Routine) - Closed Specialty Diagnoses / Procedures Referred By Contac t Referred To Contact XR IMAGING Diagnoses Right ankle swelling Procedures XR ANKLE GENERAL 3V AP/LAT/OBL RIGHT RADEX ANKLE COMPLETE MINIMUM 3 VIEWS Grupo Mendez MD [id number] [place], [place] [phone] [place] [address] Referral ID Status Reason Start Date Expiration Date V isits Requested Visits Authorized [id number] Closed Auto-Generate d Referral 09/17/2024 10/17/2025 1 1 * Diagnostic Procedure Only (Urgent) - Closed Specialty Diagnoses / Procedures Referred By Contac t Referred To Contact US IMAGING Diagnoses Right ankle swelling Procedures US DVT LOWER RIGHT DUP-SCAN XTR VEINS UNILATERAL/[place] [address] [place] [address] [place] [address] Referral ID Status Reason Start Date Expiration Date V isits Requested Visits Authorized [id number] Closed Auto-Generate d Referral 09/18/2024 10/17/2025 1 1 [facility]No reason for referral information availableWBerger Hospital Work Phone: Reason for visit Narrative* Diagnostic Procedure Only (Routine) - Closed Specialty Diagnoses / Procedures Referred By Contac t Referred To Contact XR IMAGING Diagnoses Pain in joint involving right ankle and foot Procedures XR CALCANEUS 2V AXIAL/LAT RIGHT RADEX CALCANEUS MINIMUM 2 VIEWS Simone Kevin MD [address] [place] [phone] Xr Imaging [facility] Referral ID Status Reason Start Date Expiration Date V isits Requested Visits Authorized [id number] Closed Auto-Generate d Referral 09/19/2024 10/19/2025 1 1 [facility] Summary Purpose Family History No Family History Records FoundNo Family History Records FoundNo Family History Records FoundNo Family History Records Found Advance Directives No Advanced Directives Records FoundDocuments on File Type Date Recorded 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 Advance Directive(s) 2024 10:00 AM [...] Documents on File Type Date Recorded 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 Advance Directive(s) 08/28/2015 9:03 PM Date Activated Date Inactivated Comments 03/07/2023 4:44 AM 03/09/2023 7:53 PM Date Activated Date Inactivated Comments 03/24/2022 3:23 PM 03/26/2022 7:51 PM Latest Code Status on File Code Status Date Activated Date Inactivated Comments Full Code 03/24/2022 3:23 PM 03/26/2022 7:51 PM Full Code Order Discussed With: Patient Documents on File Type Date Recorded 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 Advance Directive(s) Advance Directive(s) 05/19/2020 10:04 PM Advance Directive(s) 03/11/2017 1:34 PM Advance Directive(s) 12/10/2016 5:24 PM Advance Directive(s) 04/17/2016 11:22 AM Advance Directive(s) 08/28/2015 9:03 PM Documents on File Type Date Recorded 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 Advance Directive(s) Advance Directive(s) 03/23/2022 11:09 PM Advance Directive(s) 05/19/2020 10:04 PM Advance Directive(s) 03/11/2017 1:34 PM Advance Directive(s) 12/10/2016 5:24 PM Advance Directive(s) 04/17/2016 11:22 AM Advance Directive(s) 08/28/2015 9:03 PM Latest Code Status on File Code Status Date Activated Date Inactivated Comments Full Code 03/24/2022 3:23 PM Documents on File Type Date Recorded 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 Advance Directive(s) Advance Directive(s) 03/27/2022 12:20 AM Advance Directive(s) 03/23/2022 11:09 PM Advance Directive(s) 05/19/2020 10:04 PM Advance Directive(s) 03/11/2017 1:34 PM Advance Directive(s) 12/10/2016 5:24 PM Advance Directive(s) 04/17/2016 11:22 AM Advance Directive(s) 08/28/2015 9:03 PM Documents on File Type Date Recorded 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 Advance Directive(s) 08/28/2015 9:03 PM [...] Documents on File Type Date Recorded 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 Advance Directive(s) 2024 10:00 AM [...] diabetic retinopathy Procedures CONSULT TO OPHTHALMOLOGY OFFICE/OUTPATIENT [facility] 60-[place] [address] [place] [address] Referral ID Status Reason Start Date Expiration Date Visits Requested Visits Authorized [id number] Pending Review PCP Requested Referral 2 10/23/2023 1 1 Specialty Diagnoses / Procedures Referred By Contac t Referred To Contact [facility] Diagnoses Muscular deconditioning Procedures CONSULT TO PHYSICAL THERAPY PHYSICAL THERAPY EVALUATION HIGH COMPLEX 45 MINS Willie Kaur, IMMIGRATION COORDINATOR.TOWER SWITCH OPERATOR [address] [place] [address] [facility] [address] [address] Referral ID Status Reason Start Date Expiration Date Visits Requested Visits Authorized [id number] Pending Review Auto-Generat ed Referral 03/17/2023 03/16/2024 1 1 Specialty Diagnoses / Procedures Referred By Contac t Referred To Contact [facility] Diagnoses Pain in both hands Pain in both wrists Procedures CONSULT TO COMMUNITY ORGANIZATION AIDE OCCUPATIONAL THERAPY EVAL HIGH COMPLEX 60 MINS Willie Kaur, IMMIGRATION COORDINATOR.TOWER SWITCH OPERATOR [address] [place] [id number] [facility] [address] [address] Referral ID Status Reason Start Date Expiration Date Visits Requested Visits Authorized [id number] Pending Review Auto-Generat ed Referral 03/17/2023 03/16/2024 1 1 Specialty Diagnoses / Procedures Referred By Contac t Referred To Contact Diagnoses Leukocytosis, unspecified type Procedures CONSULT TO HEMATOLOGY/ONCOLOGY OFFICE/OUTPATIENT [facility] 60 [place] [address] [place] [id number] Referral ID Status Reason Start Date Expiration Date Visits Requested Visits Authorized [id number] Authorized PCP Requested Referral 09/04/2025 1 1 Specialty Diagnoses / Procedures Referred By Contac t Referred To Contact Orthopedics Diagnoses Right ankle swelling Closed nondisplaced fracture of right calcaneus, unspecified portion of calcaneus, initial encounter Procedures CONSULT PANEL TO ORTHOPAEDICS OFFICE/OUTPATIENT [facility] [address] [place] [address] [place] [address] Referral ID Status Reason Start Date Expiration Date Visits Requested Visits Authorized [id number] Authorized PCP Requested Referral 09/18/2024 09/18/2025 1 1 Specialty Diagnoses / Procedures Referred By Contac t Referred To Contact MR IMAGING Diagnoses Chronic pain of right ankle Procedures MRI ANKLE WO IVCON RIGHT MRI ANY JT LOWER EXTREM W/O CONTRAST MATRL Simone Kevin MD [address] [facility] [place] [address] Mr Imaging [place] [address] Referral ID Status Reason Start Date Expiration Date Visits Requested Visits Authorized [id number] Authorized Auto-Generat ed Referral 12/01/2025 1 1 Specialty Diagnoses / Procedures Referred By Contac t Referred To Contact XR IMAGING Diagnoses Right ankle swelling Procedures XR FOOT GENERAL 3V AP/LAT/OBL RIGHT RADEX FOOT COMPLETE MINIMUM 3 VIEWS Simone Kevin MD [address] [place] [address] Xr Imaging [place] [address] Referral ID Status Reason Start Date Expiration Date V isits Requested Visits Authorized [id number] Closed Auto-Generate d Referral 11/01/2024 12/01/2025 1 1 Specialty Diagnoses / Procedures Referred By Contac t Referred To Contact XR IMAGING Diagnoses Right ankle swelling Procedures XR ANKLE GENERAL 3V AP/LAT/OBL RIGHT RADEX ANKLE COMPLETE MINIMUM 3 VIEWS Simone Kevin MD [address] [place] [place] [address] Xr Imaging [place] [address] Referral ID Status Reason Start Date Expiration Date V isits Requested Visits Authorized [id number] Closed Auto-Generate d Referral 11/01/2024 12/01/2025 1 1 Referral ID Status Reason Start Date Expiration Date V isits Requested Visits Authorized [id number] Closed Auto-Generate d Referral 11/01/2024 12/01/2025 1 1 Chief Complaint and Reason for Visit Chief Complaint Admit Date LAB WORK December 17, 2024 4 :00am LAB WORK December 24, 2024 4:00am LABWORK 2024 5:00am LABWORK January 07, 2025 5:00am DETENTION LAB WORK January 15, 2025 5: 00am Chief Complaint Admit Date LAB WORK December 17, 2024 4 :00am LAB WORK December 24, 2024 4:00am LABWORK 2024 5:00am LABWORK January 07, 2025 5:00am DETENTION LAB WORK January 15, 2025 5: 00am DETENTION LAB WORK February 04, 2025 5 :00am Chief Complaint Admit Date LAB WORK December 17, 2024 4 :00am LAB WORK December 24, 2024 4:00am LABWORK 2024 5:00am LABWORK January 07, 2025 5:00am DETENTION LAB WORK January 15, 2025 5: 00am DETENTION LAB WORK February 04, 2025 5 :00am DETENTION LAB WORK March 04, 2025 5 :00am Chief Complaint Admit Date LAB WORK December 24, 2024 4:00am LABWORK 2024 5:00am LABWORK January 07, 2025 5:00am DETENTION LAB WORK January 15, 2025 5: 00am DETENTION LAB WORK February 04, 2025 5 :00am DETENTION LAB WORK March 04, 2025 5 :00am DETENTION LAB WORK March 12, 2025 4 :00am LABWORK April 01, 2025 5:00a m Chief Complaint Admit Date LAB WORK December 24, 2024 4:00am LABWORK 2024 5:00am LABWORK January 07, 2025 5:00am DETENTION LAB WORK January 15, 2025 5: 00am DETENTION LAB WORK February 04, 2025 5 :00am DETENTION LAB WORK March 04, 2025 5 :00am DETENTION LAB WORK March 12, 2025 4 :00am Chief Complaint Admit Date LABWORK April 26, 2025 5:00 am DETENTION LAB WORK April 29, 2025 4: 00am DETENTION LAB WORK May 27, 2025 4: 00am DETENTION LAB WORK June 04, 2025 5: 00am LABWORK June 20, 2025 2:0 0am DETENTION LAB WORK June 24, 2025 4:00am DETENTION LAB WORK July 22 5:00am LABWORK July 31, 2025 5:00am Additional Source Comments INFORMATION SOURCE (unrecogn ized section and content) DATE CREATED AUTHOR 12/10/2021 [facility] DATE CREATED AUTHOR AUTHORDanielle ALCANTARA 02/16/2025 [facility] DATE CREATED AUTHOR AUTHOR'S ORGANIZ ATION 07/07/2025 [facility] DATE CREATED AUTHOR AUTHOR'S ORGANIZ ATION 09/19/2025 [facility] Source Comments (unrecognize d section and content) In the event this informatio n is protected by the Federal Confidentiality of Alcohol and Drug Abuse Patient Records regulations: The Federal rules restrict any use of the information to criminally investigate or prosecute any alcohol or drug abuse patient.[facility] event this information is protected by the Federal Confidentiality of Alcohol and Drug Abuse Patient Records regulations: The Federal rules restrict any use of the information to criminally investigate or prosecute any alcohol or drug abuse patient.[facility] the event this information is protected by the Federal Confidentiality of Alcohol and Drug Abuse Patient Records regulations: The Federal rules restrict any use of the information to criminally investigate or prosecute any alcohol or drug abuse patient.[facility] the event this information is protected by the Federal Confidentiality of Alcohol and Drug Abuse Patient Records regulations: The Federal rules restrict any use of the information to criminally investigate or prosecute any alcohol or drug abuse patient.[facility] the event this information is protected by the Federal Confidentiality of Alcohol and Drug Abuse Patient Records regulations: The Federal rules restrict any use of the information to criminally investigate or prosecute any alcohol or drug abuse patient.[facility] the event this information is protected by the Federal Confidentiality of Alcohol and Drug Abuse Patient Records regulations: The Federal rules restrict any use of the information to criminally investigate or prosecute any alcohol or drug abuse patient.[facility] the event this information is protected by the Federal Confidentiality of Alcohol and Drug Abuse Patient Records regulations: The Federal rules restrict any use of the information to criminally investigate or prosecute any alcohol or drug abuse patient.[facility] the event this information is protected by the Federal Confidentiality of Alcohol and Drug Abuse Patient Records regulations: The Federal rules restrict any use of the information to criminally investigate or prosecute any alcohol or drug abuse patient.[facility] the event this information is protected by the Federal Confidentiality of Alcohol and Drug Abuse Patient Records regulations: The Federal rules restrict any use of the information to criminally investigate or prosecute any alcohol or drug abuse patient.[facility] the event this information is protected by the Federal Confidentiality of Alcohol and Drug Abuse Patient Records regulations: The Federal rules restrict any use of the information to criminally investigate or prosecute any alcohol or drug abuse patient.[facility] the event this information is protected by the Federal Confidentiality of Alcohol and Drug Abuse Patient Records regulations: The Federal rules restrict any use of the information to criminally investigate or prosecute any alcohol or drug abuse patient.[facility] the event this information is protected by the Federal Confidentiality of Alcohol and Drug Abuse Patient Records regulations: The Federal rules restrict any use of the information to criminally investigate or prosecute any alcohol or drug abuse patient.[facility] the event this information is protected by the Federal Confidentiality of Alcohol and Drug Abuse Patient Records regulations: The Federal rules restrict any use of the information to criminally investigate or prosecute any alcohol or drug abuse patient.[facility] the event this information is protected by the Federal Confidentiality of Alcohol and Drug Abuse Patient Records regulations: The Federal rules restrict any use of the information to criminally investigate or prosecute any alcohol or drug abuse patient.[facility] the event this information is protected by the Federal Confidentiality of Alcohol and Drug Abuse Patient Records regulations: The Federal rules restrict any use of the information to criminally investigate or prosecute any alcohol or drug abuse patient.[facility] the event this information is protected by the Federal Confidentiality of Alcohol and Drug Abuse Patient Records regulations: The Federal rules restrict any use of the information to criminally investigate or prosecute any alcohol or drug abuse patient.[facility] the event this information is protected by the Federal Confidentiality of Alcohol and Drug Abuse Patient Records regulations: The Federal rules restrict any use of the information to criminally investigate or prosecute any alcohol or drug abuse patient.[facility] the event this information is protected by the Federal Confidentiality of Alcohol and Drug Abuse Patient Records regulations: The Federal rules restrict any use of the information to criminally investigate or prosecute any alcohol or drug abuse patient.[facility] the event this information is protected by the Federal Confidentiality of Alcohol and Drug Abuse Patient Records regulations: The Federal rules restrict any use of the information to criminally investigate or prosecute any alcohol or drug abuse patient.[facility] the event this information is protected by the Federal Confidentiality of Alcohol and Drug Abuse Patient Records regulations: The Federal rules restrict any use of the information to criminally investigate or prosecute any alcohol or drug abuse patient.[facility] the event this information is protected by the Federal Confidentiality of Alcohol and Drug Abuse Patient Records regulations: The Federal rules restrict any use of the information to criminally investigate or prosecute any alcohol or drug abuse patient.[facility] the event this information is protected by the Federal Confidentiality of Alcohol and Drug Abuse Patient Records regulations: The Federal rules restrict any use of the information to criminally investigate or prosecute any alcohol or drug abuse patient.[facility] the event this information is protected by the Federal Confidentiality of Alcohol and Drug Abuse Patient Records regulations: The Federal rules restrict any use of the information to criminally investigate or prosecute any alcohol or drug abuse patient.[facility] the event this information is protected by the Federal Confidentiality of Alcohol and Drug Abuse Patient Records regulations: The Federal rules restrict any use of the information to criminally investigate or prosecute any alcohol or drug abuse patient.[facility] the event this information is protected by the Federal Confidentiality of Alcohol and Drug Abuse Patient Records regulations: The Federal rules restrict any use of the information to criminally investigate or prosecute any alcohol or drug abuse patient.[facility] the event this information is protected by the Federal Confidentiality of Alcohol and Drug Abuse Patient Records regulations: The Federal rules restrict any use of the information to criminally investigate or prosecute any alcohol or drug abuse patient.[facility] the event this information is protected by the Federal Confidentiality of Alcohol and Drug Abuse Patient Records regulations: The Federal rules restrict any use of the information to criminally investigate or prosecute any alcohol or drug abuse patient.[facility] the event this information is protected by the Federal Confidentiality of Alcohol and Drug Abuse Patient Records regulations: The Federal rules restrict any use of the information to criminally investigate or prosecute any alcohol or drug abuse patient.[facility] the event this information is protected by the Federal Confidentiality of Alcohol and Drug Abuse Patient Records regulations: The Federal rules restrict any use of the information to criminally investigate or prosecute any alcohol or drug abuse patient.[facility] the event this information is protected by the Federal Confidentiality of Alcohol and Drug Abuse Patient Records regulations: The Federal rules restrict any use of the information to criminally investigate or prosecute any alcohol or drug abuse patient.[facility] the event this information is protected by the Federal Confidentiality of Alcohol and Drug Abuse Patient Records regulations: The Federal rules restrict any use of the information to criminally investigate or prosecute any alcohol or drug abuse patient.[facility]In the event this information is protected by the Federal Confidentiality of Alcohol and Drug Abuse Patient Records regulations: The Federal rules restrict any use of the information to criminally investigate or prosecute any alcohol or drug abuse patient.Premier HealthIn the event this information is protected by the Federal Confidentiality of Alcohol and Drug Abuse Patient Records regulations: The Federal rules restrict any use of the information to criminally investigate or prosecute any alcohol or drug abuse patient.Premier HealthIn the event this information is protected by the Federal Confidentiality of Alcohol and Drug Abuse Patient Records regulations: The Federal rules restrict any use of the information to criminally investigate or prosecute any alcohol or drug abuse patient.Premier HealthIn the event this information is protected by the Federal Confidentiality of Alcohol and Drug Abuse Patient Records regulations: The Federal rules restrict any use of the information to criminally investigate or prosecute any alcohol or drug abuse patient.[facility] the event this information is protected by the Federal Confidentiality of Alcohol and Drug Abuse Patient Records regulations: The Federal rules restrict any use of the information to criminally investigate or prosecute any alcohol or drug abuse patient.Premier HealthIn the event this information is protected by the Federal Confidentiality of Alcohol and Drug Abuse Patient Records regulations: The Federal rules restrict any use of the information to criminally investigate or prosecute any alcohol or drug abuse patient.Premier HealthIn the event this information is protected by [...] or prosecute any alcohol or drug abuse patient.Premier HealthIn the event this information is protected by the Federal Confidentiality of Alcohol and Drug Abuse Patient Records regulations: The Federal rules restrict any use of the information to criminally investigate or prosecute any alcohol or drug abuse patient.Premier HealthIn the event this information is protected by the Federal Confidentiality of Alcohol and Drug Abuse Patient Records regulations: The Federal rules restrict any use of the information to criminally investigate or prosecute any alcohol or drug abuse patient.Premier HealthIn the event this information is protected by the Federal Confidentiality of Alcohol and Drug Abuse Patient Records regulations: The Federal rules restrict any use of the information to criminally investigate or prosecute any alcohol or drug abuse patient.Premier HealthIn the event this information is protected by the Federal Confidentiality of Alcohol and Drug Abuse Patient Records regulations: The Federal rules restrict any use of the information to criminally investigate or prosecute any alcohol or drug abuse patient.Premier HealthIn the event this information is protected by the Federal Confidentiality of Alcohol and Drug Abuse Patient Records regulations: The Federal rules restrict any use of the information to criminally investigate or prosecute any alcohol or drug abuse patient.Premier HealthIn the event this information is protected by the Federal Confidentiality of Alcohol and Drug Abuse Patient Records regulations: The Federal rules restrict any use of the information to criminally investigate or prosecute any alcohol or drug abuse patient.Premier HealthIn the event this information is protected by the Federal Confidentiality of Alcohol and Drug Abuse Patient Records regulations: The Federal rules restrict any use of the information to criminally investigate or prosecute any alcohol or drug abuse patient.Premier HealthIn the event this information is protected by the Federal Confidentiality of Alcohol and Drug Abuse Patient Records regulations: The Federal rules restrict any use of the information to criminally investigate or prosecute any alcohol or drug abuse patient.Premier HealthIn the event this information is protected by the Federal Confidentiality of Alcohol and Drug Abuse Patient Records regulations: The Federal rules restrict any use of the information to criminally investigate or prosecute any alcohol or drug abuse patient.Premier HealthIn the event this information is protected by the Federal Confidentiality of Alcohol and Drug Abuse Patient Records regulations: The Federal rules restrict any use of the information to criminally investigate or prosecute any alcohol or drug abuse patient.Premier HealthIn the event this information is protected by the Federal Confidentiality of Alcohol and Drug Abuse Patient Records regulations: The Federal rules restrict any use of the information to criminally investigate or prosecute any alcohol or drug abuse patient.Premier HealthIn the event this information is protected by the Federal Confidentiality of Alcohol and Drug Abuse Patient Records regulations: The Federal rules restrict any use of the information to criminally investigate or prosecute any alcohol or drug abuse patient.Premier HealthIn the event this information is protected by the Federal Confidentiality of Alcohol and Drug Abuse Patient Records regulations: The Federal rules restrict any use of the information to criminally investigate or prosecute any alcohol or drug abuse patient.Premier HealthIn the event this information is protected by the Federal Confidentiality of Alcohol and Drug Abuse Patient Records regulations: The Federal rules restrict any use of the information to criminally investigate or prosecute any alcohol or drug abuse patient.Premier HealthIn the event this information is protected by the Federal Confidentiality of Alcohol and Drug Abuse Patient Records regulations: The Federal rules restrict any use of the information to criminally investigate or prosecute any alcohol or drug abuse patient.Premier HealthIn the event this information is protected by the Federal Confidentiality of Alcohol and Drug Abuse Patient Records regulations: The Federal rules restrict any use of the information to criminally investigate or prosecute any alcohol or drug abuse patient.Premier HealthIn the event this information is protected by the Federal Confidentiality of Alcohol and Drug Abuse Patient Records regulations: The Federal rules restrict any use of the information to criminally investigate or prosecute any alcohol or drug abuse patient.Premier HealthIn the event this information is protected by the Federal Confidentiality of Alcohol and Drug Abuse Patient Records regulations: The Federal rules restrict any use of the information to criminally investigate or prosecute any alcohol or drug abuse patient.Premier HealthIn the event this information is protected by the Federal Confidentiality of Alcohol and Drug Abuse Patient Records regulations: The Federal rules restrict any use of the information to criminally investigate or prosecute any alcohol or drug abuse patient.Premier HealthIn the event this information is protected by the Federal Confidentiality of Alcohol and Drug Abuse Patient Records regulations: The Federal rules restrict any use of the information to criminally investigate or prosecute any alcohol or drug abuse patient.Premier HealthIn the event this information is protected by the Federal Confidentiality of Alcohol and Drug Abuse Patient Records regulations: The Federal rules restrict any use of the information to criminally investigate or prosecute any alcohol or drug abuse patient.Premier HealthIn the event this information is protected by the Federal Confidentiality of Alcohol and Drug Abuse Patient Records regulations: The Federal rules restrict any use of the information to criminally investigate or prosecute any alcohol or drug abuse patient.Premier HealthIn the event this information is protected by the Federal Confidentiality of Alcohol and Drug Abuse Patient Records regulations: The Federal rules restrict any use of the information to criminally investigate or prosecute any alcohol or drug abuse patient.Premier HealthIn the event this information is protected by the Federal Confidentiality of Alcohol and Drug Abuse Patient Records regulations: The Federal rules restrict any use of the information to criminally investigate or prosecute any alcohol or drug abuse patient.Premier HealthIn the event this information is protected by the Federal Confidentiality of Alcohol and Drug Abuse Patient Records regulations: The Federal rules restrict any use of the information to criminally investigate or prosecute any alcohol or drug abuse patient.Premier HealthIn the event this information is protected by the Federal Confidentiality of Alcohol and Drug Abuse Patient Records regulations: The Federal rules restrict any use of the information to criminally investigate or prosecute any alcohol or drug abuse patient.Premier HealthIn the event this information is protected by the Federal Confidentiality of Alcohol and Drug Abuse Patient Records regulations: The Federal rules restrict any use of the information to criminally investigate or prosecute any alcohol or drug abuse patient.Premier HealthIn the event this information is protected by the Federal Confidentiality of Alcohol and Drug Abuse Patient Records regulations: The Federal rules restrict any use of the information to criminally investigate or prosecute any alcohol or drug abuse patient.Premier HealthIn the event this information is protected by the Federal Confidentiality of Alcohol and Drug Abuse Patient Records regulations: The Federal rules restrict any use of the information to criminally investigate or prosecute any alcohol or drug abuse patient.Premier HealthIn the event this information is protected by the Federal Confidentiality of Alcohol and Drug Abuse Patient Records regulations: The Federal rules restrict any use of the information to criminally investigate or prosecute any alcohol or drug abuse patient.Premier HealthIn the event this information is protected by the Federal Confidentiality of Alcohol and Drug Abuse Patient Records regulations: The Federal rules restrict any use of the information to criminally investigate or prosecute any alcohol or drug abuse patient.Premier HealthIn the event this information is protected by the Federal Confidentiality of Alcohol and Drug Abuse Patient Records regulations: The Federal rules restrict any use of the information to criminally investigate or prosecute any alcohol or drug abuse patient.Premier HealthIn the event this information is protected by the Federal Confidentiality of Alcohol and Drug Abuse Patient Records regulations: The Federal rules restrict any use of the information to criminally investigate or prosecute any alcohol or drug abuse patient.Premier HealthIn the event this information is protected by the Federal Confidentiality of Alcohol and Drug Abuse Patient Records regulations: The Federal rules restrict any use of the information to criminally investigate or prosecute any alcohol or drug abuse patient.Premier HealthIn the event this information is protected by the Federal Confidentiality of Alcohol and Drug Abuse Patient Records regulations: The Federal rules restrict any use of the information to criminally investigate or prosecute any alcohol or drug abuse patient.Premier HealthIn the event this information is protected by the Federal Confidentiality of Alcohol and Drug Abuse Patient Records regulations: The Federal rules restrict any use of the information to criminally investigate or prosecute any alcohol or drug abuse patient.Premier HealthIn the event this information is protected by the Federal Confidentiality of Alcohol and Drug Abuse Patient Records regulations: The Federal rules restrict any use of the information to criminally investigate or prosecute any alcohol or drug abuse patient.Premier HealthIn the event this information is protected by the Federal Confidentiality of Alcohol and Drug Abuse Patient Records regulations: The Federal rules restrict any use of the information to criminally investigate or prosecute any alcohol or drug abuse patient.Premier HealthIn the event this information is protected by the Federal Confidentiality of Alcohol and Drug Abuse Patient Records regulations: The Federal rules restrict any use of the information to criminally investigate or prosecute any alcohol or drug abuse patient.Premier HealthIn the event this information is protected by the Federal Confidentiality of Alcohol and Drug Abuse Patient Records regulations: The Federal rules restrict any use of the information to criminally investigate or prosecute any alcohol or drug abuse patient.Premier HealthIn the event this information is protected by the Federal Confidentiality of Alcohol and Drug Abuse Patient Records regulations: The Federal rules restrict any use of the information to criminally investigate or prosecute any alcohol or drug abuse patient.Premier HealthIn the event this information is protected by the Federal Confidentiality of Alcohol and Drug Abuse Patient Records regulations: The Federal rules restrict any use of the information to criminally investigate or prosecute any alcohol or drug abuse patient.Premier HealthIn the event this information is protected by the Federal Confidentiality of Alcohol and Drug Abuse Patient Records regulations: The Federal rules restrict any use of the information to criminally investigate or prosecute any alcohol or drug abuse patient.Premier HealthIn the event this information is protected by the Federal Confidentiality of Alcohol and Drug Abuse Patient Records regulations: The Federal rules restrict any use of the information to criminally investigate or prosecute any alcohol or drug abuse patient.Premier HealthIn the event this information is protected by the Federal Confidentiality of Alcohol and Drug Abuse Patient Records regulations: The Federal rules restrict any use of the information to criminally investigate or prosecute any alcohol or drug abuse patient.Premier HealthIn the event this information is protected by the Federal Confidentiality of Alcohol and Drug Abuse Patient Records regulations: The Federal rules restrict any use of the information to criminally investigate or prosecute any alcohol or drug abuse patient.[facility] the event this information is protected by the Federal Confidentiality of Alcohol and Drug Abuse Patient Records regulations: The Federal rules restrict any use of the information to criminally investigate or prosecute any alcohol or drug abuse patient.Premier HealthIn the event this information is protected by the Federal Confidentiality of Alcohol and Drug Abuse Patient Records regulations: The Federal rules restrict any use of the information to criminally investigate or prosecute any alcohol or drug abuse patient.Premier HealthIn the event this information is protected by [...] or prosecute any alcohol or drug abuse patient.Premier HealthIn the event this information is protected by the Federal Confidentiality of Alcohol and Drug Abuse Patient Records regulations: The Federal rules restrict any use of the information to criminally investigate or prosecute any alcohol or drug abuse patient.Premier HealthIn the event this information is protected by the Federal Confidentiality of Alcohol and Drug Abuse Patient Records regulations: The Federal rules restrict any use of the information to criminally investigate or prosecute any alcohol or drug abuse patient.Premier HealthIn the event this information is protected by the Federal Confidentiality of Alcohol and Drug Abuse Patient Records regulations: The Federal rules restrict any use of the information to criminally investigate or prosecute any alcohol or drug abuse patient.Prem[facility] HealthIn the event this information is protected by the Federal Confidentiality of Alcohol and Drug Abuse Patient Records regulations: The Federal rules restrict any use of the information to criminally investigate or prosecute any alcohol or drug abuse patient.Premier HealthIn the event this information is protected by the Federal Confidentiality of Alcohol and Drug Abuse Patient Records regulations: The Federal rules restrict any use of the information to criminally investigate or prosecute any alcohol or drug abuse patient.[facility] Reason for Visit (unrecogniz ed section and [...] Date Comments Population Health Navigation Outreach 03/13/2024 [facility] [place] PCSA Reason Comments Diabetic Eye Exam Reason Comments Follow Up Reason Onset Date Comments Fatigue 08/13/2024 Reason Comments Hospital Follow Up Reason Comments Radiology XR Specialty Diagnoses / Procedures Referred By Contac t Referred To Contact XR IMAGING Diagnoses Pain Procedures XR SHOULDER GENERAL 3V OR MORE AP/TRUE AP/OTHER LT X-RAY SHOULDER COMPLET [place] 2 [place] [address] [id number] [place] [address] Referral ID Status Reason Start Date Expiration Date V isits Requested Visits Authorized [id number] Closed Auto-Generate d Referral 07/09/2021 08/08/2022 1 1 Reason Comments Results Reason Comments Radio Gen RMP Radiology Service Pr ogress NotePATIENT NAME: Yusuf MedinaMRN: [id number] OF SERVICE: September 17, 2024TIME: 4:30 PMPATIENT [...] COMPLETE MINIMUM 3 [place] [address] [phone] [place] [address] Referral ID Status Reason Start Date Expiration Date V isits Requested Visits Authorized [id number] Closed Auto-Generate d Referral 09/17/2024 10/17/2025 1 1 Reason Comments Results Suspicion for calcan eal bone fracture Reason Comments Radiology US Specialty Diagnoses / Procedures Referred By Contac t Referred To Contact US IMAGING Diagnoses Right ankle swelling Procedures US DVT LOWER RIGHT DUP-SCAN XTR VEINS UNILATERAL/[place] [address] [place] [address] Us Imaging [place] [address] Referral ID Status Reason Start Date Expiration Date V isits Requested Visits Authorized [id number] Closed Auto-Generate d Referral 09/18/2024 10/17/2025 1 1 Reason Comments New 8/10 PAIN CONSTANT A ABEL Pain 8/10 PAIN CONSTANT A ABEL Specialty Diagnoses / Procedures Referred By Contac t Referred To Contact Orthopedics / ORTHOPAEDIC SURGERY Diagnoses Right ankle swelling Closed nondisplaced fracture of right calcaneus, unspecified portion of calcaneus, initial encounter Procedures CONSULT PANEL TO ORTHOPAEDICS OFFICE/OUTPATIENT [facility] 60 [place] [address] [phone] [facility] [address] [place] [address] Referral ID Status Reason Start Date Expiration Date V isits Requested Visits Authorized [id number] Closed PCP Requested Referral 09/18/2024 09/18/2025 1 1 Reason Comments Consult leukocytosis Specialty Diagnoses / Procedures Referred By Contac t Referred To Contact Diagnoses Leukocytosis, unspecified type Procedures CONSULT TO HEMATOLOGY/ONCOLOGY OFFICE/OUTPATIENT [facility] [address] [place] [address] [place] [address] Referral ID Status Reason Start Date Expiration Date V isits Requested Visits Authorized [id number] Closed PCP Requested Referral 09/04/2024 09/04/2025 1 1 Reason Comments Medicare Wellness Exam Reason Comments Follow Up Reason Comments Radio Gen RMP Radiology Service Pr ogress NotePATIENT NAME: Yusuf MedinaMRN: [id number] OF SERVICE: November 01, 2024TIME: 2:15 PMPATIENT [...] COMPLETE MINIMUM 3 VIEWS Simone Kevin MD [address] [place] [address] Xr [facility] [place] [address] Referral ID Status Reason Start Date Expiration Date V isits Requested Visits Authorized [id number] Closed Auto-Generate d Referral 11/01/2024 12/01/2025 1 1 Reason Comments infection on ankle Right ankle looks in fected Specialty Diagnoses / Procedures Referred By Alisa leavitt Referred To Contact MR IMAGING Diagnoses Chronic pain of right ankle Procedures MRI ANKLE WO IVCON RIGHT MRI ANY JT LOWER EXTREM W/O CONTRAST MATRL Simone Kevin MD [address] [place] [address] Mr Imaging [place] [address] Referral ID Status Reason Start Date Expiration Date V isits Requested Visits Authorized [id number] Closed Auto-Generate d Referral 11/01/2024 12/01/2025 1 [...] Care Teams (unrecognized sec tion and content) Inside Sales Associate Relationship Specialty [place] [address] [place] [address] PCP - General Family Practice 10/05/10 Edenilson Townsend [address] [place] [address] Consulting Optometry 12/07/17 Inside Sales Associate Relationship Specialty [place] [address] [place] [address] PCP - General Family Practice 10/05/10 Edenilson Townsend [address] [facility] [place] [address] Consulting Optometry 12/07/17 Inside Sales Associate Relationship Specialty [place] [address] [place] [address] PCP - General Family Practice 10/05/10 Edenilson Townsend [address] [place] [address] Consulting Optometry 12/07/17 Inside Sales Associate Relationship Specialty [place] [address] [place] [address] PCP - General Family Practice 10/05/10 Edenilson Townsend [address] [place] [address] Consulting Optometry 12/07/17 José Miguel Swanson, [facility] [address] [place] [address] Transitional Care Pharmacist Pharmacy 03/30/22 04/30/22 Katia Farooq, enterprise engineer Drill Setup Operator 03/30/22 04/29/22 Inside Sales Associate Relationship Specialty [place] [address] [place] [address] PCP - General Family Practice 10/05/10 Edenilson Townsend [address] [place] [address] Consulting Optometry 12/07/17 José Miguel Swanson, [facility] [address] [place] [address] Transitional Care Pharmacist Pharmacy 03/30/22 04/30/22 Katia Farooq, enterprise engineer Drill Setup Operator 03/30/22 04/29/22 Inside Sales Associate Relationship Specialty Start [place] [address] [place] [address] PCP - General Family Practice 10/05/10 Edenilson Townsend [address] [place] [address] Consulting Optometry 12/07/17 José Miguel Swanson, [facility] [address] [place] [address] Transitional Care Pharmacist Pharmacy 03/30/22 04/30/22 Katia Farooq, enterprise engineer Drill Setup Operator 03/30/22 04/29/22 Inside Sales Associate Relationship Specialty Start [place] [address] [place] [address] PCP - General Family Practice 10/05/10 Edenilson Townsend [address] [place] [address] Consulting Optometry 12/07/17 José Miguel Swanson, [facility] [address] [place] [address] Transitional Care Pharmacist Pharmacy 03/30/22 04/30/22 Katia Farooq, enterprise engineer Drill Setup Operator 03/30/22 04/29/22 Inside Sales Associate Relationship Specialty [place] [address] [place] [address] PCP - General Family Practice 10/05/10 Edenilson Townsend [address] [place] [address] Consulting Optometry 12/07/17 José Miguel Swanson, [facility] [address] [place] [address] Transitional Care Pharmacist Pharmacy 03/30/22 04/30/22 Katia Farooq, enterprise engineer Drill Setup Operator 03/30/22 04/29/22 Inside Sales Associate Relationship Specialty [place] [address] [place] [address] PCP - General Family Practice 10/05/10 Edenilson Townsend [address] [place] [address] Consulting Optometry 12/07/17 Inside Sales Associate Relationship Specialty [place] [address] [place] [address] PCP - General Family Practice 10/05/10 Edenilson Townsend [address] [place] [address] Consulting Optometry 12/07/17 Inside Sales Associate Relationship Specialty [place] [address] [place] [address] PCP - General Family Practice 10/05/10 Edenilson Townsend [address] [place] [address] Consulting Optometry 12/07/17 Inside Sales Associate Relationship Specialty [place] [address] [place] [address] PCP - General Family Medicine 10/05/10 Edenilson Townsend [address] [place] [address] Consulting Optometry 12/07/17 Inside Sales Associate Relationship Specialty [place] [address] [facility] [place] [address] PCP - General Family Medicine 10/05/10 Edenilson Townsend [address] [place] [address] Consulting Optometry 12/07/17 Inside Sales Associate Relationship Specialty [place] [address] [place] [address] PCP - General Family Medicine 10/05/10 Edenilson Townsend [address] [place] [address] Consulting Optometry 12/07/17 Inside Sales Associate Relationship Specialty [place] [address] [place] [address] PCP - General Family Medicine 10/05/10 Edenilson Townsend [address] [place] [address] Consulting Optometry 12/07/17 Inside Sales Associate Relationship Specialty [place] [address] [place] [address] PCP - General Family Medicine 10/05/10 Edenilson Townsend [address] [place] [address] Consulting Optometry 12/07/17 [place] [address] [place] [address] Primary Care Drill Setup Operator 03/10/23 04/08/23 Inside Sales Associate Relationship Specialty [place] [address] [place] [address] PCP - General Family Medicine 10/05/10 Edenilson Townsend [address] [place] [address] Consulting Optometry 12/07/17 [place] [address] [place] [address] Primary Care Drill Setup Operator 03/10/23 04/08/23 Inside Sales Associate Relationship Specialty [place] [address] [place] [address] PCP - General Family Medicine 10/05/10 Edenilson Townsend [address] [facility] [place] [address] Consulting Optometry 12/07/17 [place] [address] [place] [address] Primary Care Drill Setup Operator 03/10/23 04/08/23 Inside Sales Associate Relationship Specialty [place] [address] [place] [address] PCP - General Family Medicine 10/05/10 Edenilson Townsend [address] [place] [address] Consulting Optometry 12/07/17 [place] [address] [place] [address] Primary Care Drill Setup Operator 03/10/23 04/08/23 Inside Sales Associate Relationship Specialty [place] [address] [place] [address] PCP - General Family Medicine 10/05/10 Edenilson Townsend [address] [place] [address] Consulting Optometry 12/07/17 Inside Sales Associate Relationship Specialty [place] [address] [place] [address] PCP - General Family Medicine 10/05/10 Edenilson Townsend [address] [facility] [place] [address] Consulting Optometry 12/07/17 Inside Sales Associate Relationship Specialty [place] [address] [place] [address] PCP - General Family Medicine 10/05/10 Edenilson Townsend [address] [place] [address] Consulting Optometry 12/07/17 Inside Sales Associate Relationship Specialty [place] [address] [place] [address] PCP - General Family Medicine 10/05/10 Edenilson Townsend [address] [facility] [place] [address] Consulting Optometry 12/07/17 Inside Sales Associate Relationship Specialty [place] [address] [place] [address] PCP - General Family Medicine 10/05/10 Edenilson Townsend [address] [facility] [place] [address] Consulting Optometry 12/07/17 Inside Sales Associate Relationship Specialty [place] [address] [place] [address] PCP - General Family Medicine 10/05/10 Edenilson Townsend [address] [facility] [place] [address] Consulting Optometry 12/07/17 Inside Sales Associate Relationship Specialty [place] [address] [place] [address] PCP - General Family Medicine 10/05/10 Edenilson Townsend [address] [place] [address] Consulting Optometry 12/07/17 Inside Sales Associate Relationship Specialty [place] [address] [place] [address] PCP - General Family Medicine 10/05/10 Edenilson Townsend, OD [address] [place] [address] Consulting Optometry 12/07/17 Inside Sales Associate Relationship Specialty [place] [address] [place] [address] PCP - General Family Medicine 10/05/10 Edenilson Townsend, CHETNA [address] [place] [address] Consulting Optometry 12/07/17 Inside Sales Associate Relationship Specialty [place] [address] [place] [address] PCP - General Family Medicine 10/05/10 Edenilson Townsend, OD [address] [place] [address] Consulting Optometry 12/07/17 Inside Sales Associate Relationship Specialty [place] [address] [place] [address] PCP - General Family Medicine 10/05/10 Edenilson Townsend, CHETNA [address] [place] [address] Consulting Optometry 12/07/17 Inside Sales Associate Relationship Specialty [place] [address] [place] [address] PCP - General Family Medicine 10/05/10 Edenilson Townsend [address] [place] [address] Consulting Optometry 12/07/17 Inside Sales Associate Relationship Specialty [place] [address] [place] [address] PCP - General Family Medicine 10/05/10 Edenilson Townsend OD [address] [place] [address] Consulting Optometry 12/07/17 Inside Sales Associate Relationship Specialty [place] [address] [place] [address] PCP - General Family Medicine 10/05/10 Edenilson Townsend OD [address] [place] [address] Consulting Optometry 12/07/17 Inside Sales Associate Relationship Specialty [place] [address] [place] [address] PCP - General Family Medicine 10/05/10 Edenilson Townsend OD [address] [place] [address] Consulting Optometry 12/07/17 Inside Sales Associate Relationship Specialty [place] [address] [place] [address] PCP - General Family Medicine 10/05/10 Edenilson Townsend OD [address] [place] [address] Consulting Optometry 12/07/17 Inside Sales Associate Relationship Specialty [place] [address] [place] [address] PCP - General Family Medicine 10/05/10 Edenilson Townsend, OD [address] [place] [address] Consulting Optometry 12/07/17 Inside Sales Associate Relationship Specialty [place] [address] [place] [address] PCP - General Family Medicine 10/05/10 Edenilson Townsend, OD [address] [place] [address] Consulting Optometry 12/07/17 Inside Sales Associate Relationship Specialty [place] [address] [place] [address] PCP - General Family Medicine 10/05/10 Edenilson Townsend, OD [address] [place] [address] Consulting Optometry 12/07/17 Inside Sales Associate Relationship Specialty [place] [address] [place] [address] PCP - General Family Medicine 10/05/10 Edenilson Townsend, CHETNA [address] [place] [address] Consulting Optometry 12/07/17 Inside Sales Associate Relationship Specialty [place] [address] [place] [address] PCP - General Family Medicine 10/05/10 Edenilson Townsend OD [address] [place] [address] Consulting Optometry 12/07/17 Inside Sales Associate Relationship Specialty [place] [address] [place] [address] PCP - General Family Medicine 10/05/10 Edenilson Townsend OD [address] [place] [address] Consulting Optometry 12/07/17 Inside Sales Associate Relationship Specialty [place] [address] [place] [address] PCP - General Family Medicine 10/05/10 Edenilson Townsend OD [address] [place] [address] Consulting Optometry 12/07/17 Inside Sales Associate Relationship Specialty [place] [address] [place] [address] PCP - General Family Medicine 10/05/10 Edenilson Townsend OD [address] [place] [address] Consulting Optometry 12/07/17 Inside Sales Associate Relationship Specialty [place] [address] [place] [address] PCP - General Family Medicine 10/05/10 Edenilson Townsend OD [address] [place] [address] Consulting Optometry 12/07/17 Inside Sales Associate Relationship Specialty [place] [address] [place] [address] PCP - General Family Medicine 10/05/10 Edenilson Townsend OD [address] [place] [address] Consulting Optometry 12/07/17 Cinthia Ponce IMMIGRATION COORDINATOR.TOWER SWITCH OPERATOR [address] [place] [address] Remote Sensing Scientist Family Medicine 10/21/24 Willie Kaur, IMMIGRATION COORDINATOR.TOWER SWITCH OPERATOR [address] [place] [address] Remote Sensing Scientist Family Medicine 10/21/24 Inside Sales Associate Relationship Specialty [place] [address] [place] [address] PCP - General Family Medicine 10/05/10 Edenilson Townsend OD [address] [place] [address] Consulting Optometry 12/07/17 Cinthia Ponce, IMMIGRATION COORDINATOR.TOWER SWITCH OPERATOR [address] [place] [address] Remote Sensing Scientist Family Medicine 10/21/24 Willie Kaur, IMMIGRATION COORDINATOR.TOWER SWITCH OPERATOR [address] [place] [address] Remote Sensing Scientist Family Medicine 10/21/24 Inside Sales Associate Relationship Specialty [place] [address] [place] [address] PCP - General Family Medicine 10/05/10 Edenilson Townsend, OD [address] [place] [address] Consulting Optometry 12/07/17 Cinthia Ponce IMMIGRATION COORDINATOR.TOWER SWITCH OPERATOR [address] [place] [address] Remote Sensing Scientist Family Medicine 10/21/24 Willie Kaur IMMIGRATION COORDINATOR.TOWER SWITCH OPERATOR [address] [place] [address] Remote Sensing Scientist Family Medicine 10/21/24 Inside Sales Associate Relationship Specialty [place] [address] [place] [address] PCP - General Family Medicine 10/05/10 Edenilson Townsend, OD [address] [place] [address] Consulting Optometry 12/07/17 Cinthia Ponce, IMMIGRATION COORDINATOR.TOWER SWITCH OPERATOR [address] [place] [address] Remote Sensing Scientist Family Medicine 10/21/24 Willie Kaur IMMIGRATION COORDINATOR.TOWER SWITCH OPERATOR [address] [place] [address] Remote Sensing Scientist Family Medicine 10/21/24 Inside Sales Associate Relationship Specialty [place] [address] [place] [address] PCP - General Family Medicine 10/05/10 Edenilson Townsend, OD [address] [place] [address] Consulting Optometry 12/07/17 Cinthia Ponce, IMMIGRATION COORDINATOR.TOWER SWITCH OPERATOR [address] [place] [address] Remote Sensing Scientist Family Medicine 10/21/24 Willie Kaur, IMMIGRATION COORDINATOR.TOWER SWITCH OPERATOR [address] [place] [address] Remote Sensing Scientist Family Medicine 10/21/24 Inside Sales Associate Relationship Specialty [place] [address] [place] [address] PCP - General Family Medicine 10/05/10 Edenilson Townsend, CHETNA [address] [place] [address] Consulting Optometry 12/07/17 Cinthia Ponce, IMMIGRATION COORDINATOR.TOWER SWITCH OPERATOR [address] [place] [address] Remote Sensing Scientist Family Medicine 10/21/24 Willie Kaur, IMMIGRATION COORDINATOR.TOWER SWITCH OPERATOR [address] [place] [address] Remote Sensing Scientist Family Medicine 10/21/24 Inside Sales Associate Relationship Specialty [place] [address] [place] [address] PCP - General Family Medicine 10/05/10 Edenilson Townsend, CHETNA [address] [place] [address] Consulting Optometry 12/07/17 Cinthia Ponce, IMMIGRATION COORDINATOR.TOWER SWITCH OPERATOR [address] [place] [address] Remote Sensing Scientist Family Medicine 10/21/24 Willie Kaur, IMMIGRATION COORDINATOR.TOWER SWITCH OPERATOR [address] [place] [address] Remote Sensing Scientist Family Medicine 10/21/24 Inside Sales Associate Relationship Specialty [place] [address] [place] [address] PCP - General Family Medicine 10/05/10 Edenilson Townsend OD [address] [place] [address] Consulting Optometry 12/07/17 Cinthia Ponce, IMMIGRATION COORDINATOR.TOWER SWITCH OPERATOR [address] [place] [address] Remote Sensing Scientist Family Medicine 10/21/24 Willie Kaur, IMMIGRATION COORDINATOR.TOWER SWITCH OPERATOR [address] [place] [address] Remote Sensing Scientist Family Medicine 10/21/24 Inside Sales Associate Relationship Specialty [place] [address] [place] [address] PCP - General Family Medicine 10/05/10 Edenilson Townsend OD [address] [place] [address] Consulting Optometry 12/07/17 Cinthia Ponce, IMMIGRATION COORDINATOR.TOWER SWITCH OPERATOR [address] [place] [address] Remote Sensing Scientist Family Medicine 10/21/24 Willie Kaur, IMMIGRATION COORDINATOR.TOWER SWITCH OPERATOR [address] [place] [address] Remote Sensing Scientist Family Medicine 10/21/24 Inside Sales Associate Relationship Specialty [place] [address] [place] [address] PCP - General Family Medicine 10/05/10 Edenilson Townsend [address] [place] [address] Consulting Optometry 12/07/17 Cinthia Ponce, IMMIGRATION COORDINATOR.TOWER SWITCH OPERATOR [address] [place] [address] Remote Sensing Scientist Family Medicine 10/21/24 Willie Kaur, IMMIGRATION COORDINATOR.TOWER SWITCH OPERATOR [address] [place] [address] Remote Sensing Scientist Family Medicine 10/21/24 Inside Sales Associate Relationship Specialty [place] [address] [place] [address] PCP - General Family Medicine 10/05/10 Edenilson Townsend [address] [place] [address] Consulting Optometry 12/07/17 Cinthia Ponce IMMIGRATION COORDINATOR.TOWER SWITCH OPERATOR [address] [place] [address] Remote Sensing Scientist Family Medicine 10/21/24 Willie Kaur APRN.TOWER SWITCH OPERATOR [address] [place] [address] Remote Sensing Scientist Family Medicine 10/21/24 Inside Sales Associate Relationship Specialty [place] [address] [place] [address] PCP - General Family Medicine 10/05/10 Edenilson Townsend, OD [address] [place] [address] Consulting Optometry 12/07/17 Cinthia Ponce IMMIGRATION COORDINATOR.TOWER SWITCH OPERATOR [address] [place] [address] Remote Sensing Scientist [facility] Medicine 10/21/24 Willie Kaur, IMMIGRATION COORDINATOR.TOWER SWITCH OPERATOR [address] [place] [address] [facility] 10/21/24 Inside Sales Associate Relationship Specialty [place] [address] [place] [address] PCP - General Family Medicine 10/05/10 Edenilson Townsend, OD [address] [place] [address] Consulting Optometry 12/07/17 Cinthia Ponce IMMIGRATION COORDINATOR.TOWER SWITCH OPERATOR [address] [place] [address] Remote Sensing Scientist Family Medicine 10/21/24 Willie Kaur APRN.TOWER SWITCH OPERATOR [address] [place] [address] Remote Sensing Scientist Family Medicine 10/21/24 Inside Sales Associate Relationship Specialty [place] [address] [place] [address] PCP - General Family Medicine 10/05/10 Edenilson Townsend [address] [place] [address] Consulting Optometry 12/07/17 Cinthia Ponce IMMIGRATION COORDINATOR.TOWER SWITCH OPERATOR [address] [place] [address] Remote Sensing Scientist Family Medicine 10/21/24 Willie Kaur IMMIGRATION COORDINATOR.TOWER SWITCH OPERATOR [address] [place] [address] Remote Sensing Scientist Family [facility] 10/21/24 Inside Sales Associate Relationship Specialty [place] [address] [place] [address] PCP - General Family Medicine 10/05/10 Edenilson Townsend [address] [place] [address] Consulting Optometry 12/07/17 Cinthia Ponce IMMIGRATION COORDINATOR.TOWER SWITCH OPERATOR [address] [place] [address] Remote Sensing Scientist Family Medicine 10/21/24 Willie Kaur IMMIGRATION COORDINATOR.TOWER SWITCH OPERATOR [address] [place] [address] Remote Sensing Scientist Family Medicine 10/21/24 Inside Sales Associate Relationship Specialty Start [place] [address] [place] [address] PCP - General Family Medicine 10/05/10 Edenilson Townsend OD [address] [place] [address] Consulting Optometry 12/07/17 Cinthia Ponce IMMIGRATION COORDINATOR.TOWER SWITCH OPERATOR [address] [place] [address] Remote Sensing Scientist Family Medicine 10/21/24 Willie Kaur, IMMIGRATION COORDINATOR.TOWER SWITCH OPERATOR [address] [place] [address] Remote Sensing Scientist Family Medicine 10/21/24 Inside Sales Associate Relationship Specialty Start [place] [address] [place] [address] PCP - General Family Medicine 10/05/10 Edenilson Townsend, CHETNA [address] [place] [address] Consulting Optometry 12/07/17 Cinthia Ponce IMMIGRATION COORDINATOR.TOWER SWITCH OPERATOR [address] [place] [address] Remote Sensing Scientist Family Medicine 10/21/24 Willie Kaur IMMIGRATION COORDINATOR.TOWER SWITCH OPERATOR [address] [place] [address] Remote Sensing Scientist Family Medicine 10/21/24 Inside Sales Associate Relationship Specialty Start [place] [address] [place] [address] PCP - General Family Medicine 10/05/10 Edenilson Townsend, OD [address] [place] [address] Consulting Optometry 12/07/17 Cinthia Ponce, IMMIGRATION COORDINATOR.TOWER SWITCH OPERATOR [address] [place] [address] Remote Sensing Scientist Family Medicine 10/21/24 Willie Kaur, IMMIGRATION COORDINATOR.TOWER SWITCH OPERATOR [address] [place] [address] Remote Sensing Scientist Family Medicine 10/21/24 Inside Sales Associate Relationship Specialty Start [place] [address] [place] [address] PCP - General Family Medicine 10/05/10 Edenilson Townsend, OD [address] [place] [address] Consulting Optometry 12/07/17 Cinthia Ponce, IMMIGRATION COORDINATOR.TOWER SWITCH OPERATOR [address] [place] [address] Remote Sensing Scientist Family Medicine 10/21/24 Willie Kaur, IMMIGRATION COORDINATOR.TOWER SWITCH OPERATOR [address] [place] [address] Remote Sensing Scientist Family Medicine 10/21/24 Inside Sales Associate Relationship Specialty Start [place] [address] [place] [address] PCP - General Family Medicine 10/05/10 Edenilson Townsend OD [address] [place] [address] Consulting Optometry 12/07/17 Cinthia Ponce, IMMIGRATION COORDINATOR.TOWER SWITCH OPERATOR [address] [place] [address] Remote Sensing Scientist Family Medicine 10/21/24 Willie Kaur APRN.TOWER SWITCH OPERATOR [address] [place] [address] Remote Sensing Scientist Family Medicine 10/21/24 Team Status: Active Member [...] Provider Active S tart: February 04, 2025 Inside Sales Associate Relationship Specialty Start [place] [address] [place] [address] PCP - General Family Medicine 10/05/10 Edenilson Townsend [address] [place] [address] Consulting Optometry 12/07/17 Cinthia Ponce, IMMIGRATION COORDINATOR.TOWER SWITCH OPERATOR [address] [place] [address] Remote Sensing Scientist Family Medicine 10/21/24 Willie Kaur IMMIGRATION COORDINATOR.TOWER SWITCH OPERATOR [address] [place], [place] [address] Remote Sensing Scientist Family Medicine 10/21/24 Team Status: Inactive Member [...] Team Status: Active Member Role Status Dates aMrio RODAS MD Attending Provider Active S tart: April 01, 2025 Inside Sales Associate Relationship Specialty [place] [address] [place] [address] PCP - General Family Medicine 10/05/10 Edenilson Townsend, OD [address] [place] [address] Consulting Optometry 12/07/17 Willie Kaur, IMMIGRATION COORDINATOR.TOWER SWITCH OPERATOR [address] [place] [address] Remote Sensing Scientist Family Medicine 10/21/24 Inside Sales Associate Relationship Specialty Start [place] [address] [place] [address] PCP - General Family Medicine 10/05/10 Edenilson Townsend [address] [place] [address] Consulting Optometry 12/07/17 Willie Kaur, IMMIGRATION COORDINATOR.TOWER SWITCH OPERATOR [address] [place] [address] Remote Sensing Scientist Family Medicine 10/21/24 Inside Sales Associate Relationship Specialty Start [place] [address] [place] [address] PCP - General Family Medicine 10/05/10 Edenilson Townsend OD [address] [place] [address] Consulting Optometry 12/07/17 Willie Kaur, IMMIGRATION COORDINATOR.TOWER SWITCH OPERATOR [address] [place] [address] Remote Sensing Scientist Family Medicine 10/21/24 Inside Sales Associate Relationship Specialty Start [place] [address] [place] [address] PCP - General Family Medicine 10/05/10 Edenilson Townsend OD [address] [place] [address] Consulting Optometry 12/07/17 Willie Kaur APRN.TOWER SWITCH OPERATOR [address] [place] [address] Remote Sensing Scientist Family Medicine 10/21/24 Team Status: Inactive Member Role/Relationship Status [...] RODAS MD Referring Provider Active S tart: July 22, 2025 Team Status: Active Member Role/Relationship Status [...] BE BASED ON THE PRIMARY CLINICAL RECORDS. [email or web address] [facility]. provides no warranty or guarantee of the accuracy or completeness of information in this document.
[2025-11-11 07:50] LABS: Hematocrit 31.0 % (37-47); Hemoglobin 10.0 g/dL (12.0-15.0); Mean Corp Hgb Conc 32.3 g/dL (32-36); Mean Corpuscular Volume 92.0 fL (81-99); Mean Platelet Vol. 9.3 fl (6.2-12.0); Platelet Count 353 K/mm3 (150-450); RBC Distribution Width CV 13.7 % (11.6-14.6); RBC Distribution Width SD 46.6 fl (35.1-43.9); Red Blood Count 3.37 M/mm3 (4.2-5.4); White Blood Count 8.0 K/mm3 (4.4-11.0)
[2025-11-11 08:05] LABS: Anion Gap 10 (7-18); BUN 35 mg/dL (4-19); BUN/Creat Ratio 28.0 RATIO (10-20); Calcium,Total 9.3 mg/dL (7.6-11.0); Carbon Dioxide 24.3 mmol/L (20.0-29.0); Chloride 105 mmol/L (96-106); Glucose 87 mg/dL (70-99); Potassium 4.5 mmol/L (3.5-5.1)
== END ==
LOC: OLS.ACH 05:00
PROVIDERS: Visit Provider Internal Medicine
DX: R05.1 Acute cough (principal)
CPT/HCPCS: 36415; 80048; 85027